=== PATIENT | female | born 1950 | race Caucasian/White ===

== ENCOUNTER → 2024-11-22 06:20 | Outpatient (REF) | payer MEDICARE, SELFPAY ==
[2024-11-25 06:08] LABS: KEPPRA (LEVETIRACETAM) 18.7 ug/mL (10.0-40.0)
== END ==
LOC: OLS.SANC 06:20
DX: Z79.899 Other long term (current) drug therapy (principal)
CPT/HCPCS: 36415; 80177

== ENCOUNTER → 2024-11-30 | Outpatient (REF) | payer MEDICARE, SELFPAY ==
[2024-11-30 09:18] LABS: Hematocrit 21.7 % (37-47); Hemoglobin 6.9 g/dL (12.0-15.0); Mean Corp Hgb Conc 31.8 g/dL (32-36); Mean Corpuscular Volume 93.9 fL (81-99); Mean Platelet Vol. 10.5 fl (6.2-12.0); Platelet Count 342 K/mm3 (150-450); RBC Distribution Width CV 18.5 % (11.6-14.6); RBC Distribution Width SD 63.3 fl (35.1-43.9); Red Blood Count 2.31 M/mm3 (4.2-5.4); White Blood Count 7.0 K/mm3 (4.4-11.0)
== END ==
LOC: OLS.SANC 05:00
DX: J15.9 Unspecified bacterial pneumonia (principal); N18.6 End stage renal disease
CPT/HCPCS: 36415; 85027

== ENCOUNTER → 2024-12-05 | Outpatient (REF) | payer MEDICARE, SELFPAY ==
--- OUTSIDE RECORDS SUMMARY | 2024-12-05 04:50 | XMS RPT_ITS | CCD ---
Author Organization [facility] Team Providers Care Relief Captain Name Role Phone Alex Betancourt Attending Unavail able Alex Betancourt Attending Unavail able Randy Marks Attending Unavailable Results Test Name Value Interpretation Reference Range Facil ity CBC-Complete Blood Cnt No Di ffon 12-01-2024 HCT Normal 37-47 [facility] Comment on above: Order Comment: 408-2 Result Comment: This specimen has been REJECTED due to Laboratory criteria: Clotted. TIANNA RUIZ has been notified of need of recollection. 12/01/24 0856 Aaliyah Huber Performed By: #### L 100.0500 #### [facility] [address] [place], [address] HGB Normal 12.0-15.0 [facility] Comment on above: Order Comment: 408-2 Result Comment: This specimen has been REJECTED due to Laboratory criteria: Clotted. TIANNA RUIZ has been notified of need of recollection. 12/01/24 0856 Aaliyah Huber Performed By: #### L 100.0500 #### [facility] [address] [place], [address] MCH Normal 27.0-32.0 [facility] Comment on above: Order Comment: 408-2 Result Comment: This specimen has been REJECTED due to Laboratory criteria: Clotted. TIANNA RUIZ has been notified of need of recollection. 12/01/24 0856 Aaliyah Huber Performed By: #### L 100.0500 #### [facility] [address] [place], [address] MCHC Normal 32-36 [facility] Comment on above: Order Comment: 408-2 Result Comment: This specimen has been REJECTED due to Laboratory criteria: Clotted. TIANNA RUIZ has been notified of need of recollection. 12/01/24 0856 Aaliyah Huber Performed By: #### L 100.0500 #### [facility] [address] [place], [address] MCV Normal 81-99 [facility] Comment on above: Order Comment: 408-2 Result Comment: This specimen has been REJECTED due to Laboratory criteria: Clotted. TIANNA RUIZ has been notified of need of recollection. 12/01/24 0856 Aaliyah Huber Performed By: #### L 100.0500 #### [facility] [address] [place], [address] PLT Normal 150-450 [facility] Comment on above: Order Comment: 408-2 Result Comment: This specimen has been REJECTED due to Laboratory criteria: Clotted. TIANNA RUIZ has been notified of need of recollection. 12/01/24 0856 Aaliyah Huber Performed By: #### L 100.0500 #### [facility] [address] [place], [address] RBC Normal 4.2-5.4 [facility] Comment on above: Order Comment: 408-2 Result Comment: This specimen has been REJECTED due to Laboratory criteria: Clotted. TIANNA RUIZ has been notified of need of recollection. 12/01/24 0856 Aaliyah Huber Performed By: #### L 100.0500 #### [facility] [address] [place], [address] RDW CV Normal 11.6-14.6 [facility] Comment on above: Order Comment: 408-2 Result Comment: This specimen has been REJECTED due to Laboratory criteria: Clotted. TIANNA RUIZ has been notified of need of recollection. 12/01/24 0856 Aaliyah Huber Performed By: #### L 100.0500 #### [facility] [address] [place], [address] RDW SD Normal 35.1-43.9 [facility] Comment on above: Order Comment: 408-2 Result Comment: This specimen has been REJECTED due to Laboratory criteria: Clotted. TIANNA RUIZ has been notified of need of recollection. 12/01/2456 Aaliyah Huber Performed By: #### L 100.0500 #### [facility] [address] [place], [address] WBC Normal 4.4-11.0 [facility] Comment on above: Order Comment: 408-2 Result Comment: This specimen has been REJECTED due to Laboratory criteria: Clotted. TIANNA RUIZ has been notified of need of recollection. 12/01/2456 Aaliyah Huber Performed By: #### L 100.0500 #### [facility] [address] [place], [address] CBC-Complete Blood Cnt No Di ffon 11-30-2024 Erythrocyte distribution width (RBC) [Ratio] 18.5 % High 11.6-14.6 [facility] Comment on above: Order Comment: 408.2 Performed By: #### L 100.0500 #### [facility] [address] [place], [address] Hematocrit (Bld) [Volume fraction] 21.7 % Low 37-47 [facility] Comment on above: Order Comment: 408.2 Performed By: #### L 100.0500 #### [facility] [address] [place], [address] Hemoglobin (Bld) [Mass/Vol] 6.9 g/dL Low 12.0-15.0 [facility] Comment on above: Order Comment: 408.2 Performed By: #### L 100.0500 #### [facility] [address] [place], [address] MCH (RBC) [Entitic mass] 29.9 pg Normal 27.0-32.0 [facility] Comment on above: Order Comment: 408.2 Performed By: #### L 100.0500 #### [facility] [address] [place], [address] MCHC (RBC) [Mass/Vol] 31.8 g/dL Low 32-36 [facility] Comment on above: Order Comment: 408.2 Performed By: #### L 100.0500 #### [facility] [address] [place], [address] MCV (RBC) [Entitic vol] 93.9 fL Normal 81-99 [facility] Comment on above: Order Comment: 408.2 Performed By: #### L 100.0500 #### [facility] [address] [place], [address] Platelet mean volume (Bld) [Entitic vol] 10.5 fL Normal 6.2-12.0 [facility] Comment on above: Order Comment: 408.2 Performed By: #### L 100.0500 #### [facility] [address] [place], [address] Platelets (Bld) [#/Vol] 342 10*3/uL Normal 150-450 [facility] Comment on above: Order Comment: 408.2 Performed By: #### L 100.0500 #### [facility] [address] [place], [address] RBC (Bld) [#/Vol] 2.31 10*6/uL Low 4.2-5.4 [facility] Comment on above: Order Comment: 408.2 Performed By: #### L 100.0500 #### [facility] [address] [place], [address] RDW SD 63.3 fl High 35.1-43.9 [facility] Comment on above: Order Comment: 408.2 Performed By: #### L 100.0500 #### [facility] [address] [place], [place], [address] WBC (Bld) [#/Vol] 7.0 10*3/uL Normal 4.4-11.0 [facility] Comment on above: Order Comment: 408.2 Performed By: #### L 100.0500 #### [facility] [address] [place], [address] KEPPRA (LEVETIRACETAM)on KEPPRA 18.7 ug/mL Normal 10.0-40.0 [facility] Comment on above: Order Comment: 408-2 Result Comment: Perf ormed at: [facility] [id number] Production Support Developer: Scott Little MD, Phone: [phone] Performed By: #### L 3310.0000 #### [facility] [address] [place], [address] Encounters Encounter Date Encounter Type Care Provider Facility Start: 12-01-2024 ambulatory Randy Florashannon FRIED Faci lity:[facility] Start: 11-30-2024 ambulatory [facility] Facility:[facility] Start: 11-22-2024 ambulatory [facility] OLS Facility:[facility] Payers Date Payer Category Payer Self-pay Summary Purpose Family History No Family History Records Found Advance Directives No Advanced Directives Records Found Additional Source Comments INFORMATION SOURCE (unrecogn ized section and content) DATE CREATED AUTHOR 12/01/2024 [facility] FOR RECORDS PERTAINING TO PATIENTS WHO ARE OR HAVE BEEN ENROLLED IN A CHEMICAL DEPENDENCY/SUBSTANCEABUSE PROGRAM, SOME INFORMATION MAY BE OMITTED. This clinical summary was aggregated from multiple sources. Caution should be exercised in using it in the provision of clinical care. This summary normalizes information from multiple sources, and as a consequence, information in this document may materially change the coding, format and clinical context of patient data. In addition, data may be omitted in some cases. CLINICAL DECISIONS SHOULD BE BASED ON THE PRIMARY CLINICAL RECORDS. [employer] provides no warranty or guarantee of the accuracy or completeness of information in this document.
[2024-12-05 09:24] LABS: Hematocrit 22.4 % (37-47); Hemoglobin 7.2 g/dL (12.0-15.0); Mean Corp Hgb Conc 32.1 g/dL (32-36); Mean Corpuscular Volume 94.5 fL (81-99); Mean Platelet Vol. 10.7 fl (6.2-12.0); POSITIVE MORPHOLOGY YES; Platelet Count 395 K/mm3 (150-450); RBC Distribution Width CV 18.8 % (11.6-14.6); RBC Distribution Width SD 65.1 fl (35.1-43.9); Red Blood Count 2.37 M/mm3 (4.2-5.4); White Blood Count 8.5 K/mm3 (4.4-11.0)
[2024-12-05 09:25] LABS: Scan Indicated on CBC? Y/N YES- FLAGS NOTED
== END ==
LOC: OLS.SANC 05:00
DX: D64.9 Anemia, unspecified (principal)
CPT/HCPCS: 85027

== ENCOUNTER → 2024-12-25 | Outpatient (REF) | payer MEDICARE, SELFPAY ==
[2024-12-25 09:12] LABS: Hematocrit 26.1 % (37-47); Hemoglobin 8.5 g/dL (12.0-15.0); Mean Corp Hgb Conc 32.6 g/dL (32-36); Mean Corpuscular Volume 96.7 fL (81-99); Mean Platelet Vol. 10.9 fl (6.2-12.0); Platelet Count 435 K/mm3 (150-450); RBC Distribution Width CV 17.0 % (11.6-14.6); RBC Distribution Width SD 58.0 fl (35.1-43.9); Red Blood Count 2.70 M/mm3 (4.2-5.4); White Blood Count 11.2 K/mm3 (4.4-11.0)
[2024-12-25 10:03] LABS: BUN 23 mg/dL (4-19); BUN/Creat Ratio 5.5 RATIO (10-20); Calcium,Total 7.7 mg/dL (7.6-11.0); Chloride 96 mmol/L (98-108); Glucose 49 mg/dL (70-99); Potassium 3.5 mmol/L (3.3-5.1)
[2024-12-25 10:07] LABS: Anion Gap 14 (5-15); Carbon Dioxide 24.2 mmol/L (21.0-32.0)
== END ==
LOC: OLS.SANC 05:30
DX: D64.9 Anemia, unspecified (principal); I10 Essential (primary) hypertension
CPT/HCPCS: 36415; 80048; 85027

== ENCOUNTER → 2025-01-05 | Outpatient (REF) | payer MEDICARE, SELFPAY ==
--- OUTSIDE RECORDS SUMMARY | 2025-01-05 04:16 | XMS RPT_ITS | CCD ---
Author Organization [facility] Inform ion Partnership [facility] Care Team Providers Care Building Appraiser Name Role Phone Bonyo, Alvarado S Primary Care Provider Unavailable Primary Care Provider Unavailabl e Bonyo, Alvarado Wes Primary Care Provider Bonyo DO, Alvarado Wes Primary Care Provider [phone] WANG, CARLOS MANUEL Q Referring Unavailable BONYO, ALVARADO WES Primary Care Unavailable WANG, CARLOS MANUEL Q Referring Unavailable BONYO, ALVARADO WES Primary Care Unavailable Bonyo DO, Alvarado S Primary Care Provider Ivania DENG, Carlos Manuel Q Unavailable Jim DENG, Raffy Unavailable Bonyo DO, Alvarado S Primary Care Provider Ivania DENG, Carlos Manuel Q Unavailable Jim DENG, Raffy Unavailable Ivania DENG, Carlos Manuel Q Unavailable Bonyo DO, Alvarado S Primary Care Provider Ivania DENG, Carlos Manuel Q Unavailable Bonyo DO, Alvarado S Primary Care Provider Judit, Roxie Primary Care Provider Ivania DENG, Carlos Manuel Q Unavailable Unavailable Primary Care Provider Unavailabl e BICAKODAK DO~[id number], SHAMEKAAKODAK VERJaonn Neri g Unavailable SAROJ DENG, RADHA Procedure Practitioner Unav DANIELA Perdue MD Consulting Unavailable JAYANT DO~[id number], JAYANT hedrick Unavailable ROXIE SPAIN MD Primary Care Unavailable DANIELA THORNTON MD Consulting Unavailable TEZ GARNETT, EDWIN Consulting Unavailable TEZ GARNETT, EDWIN Consulting Unavailable CECY DENG, NEVA Consulting Unavailable CECY DENG, NEVA Consulting Unavailable ALTHEA DENG, BLANCA Consulting Unavailable ALTHEA DENG, BLANCA Consulting Unavailable LELAND HART, HONORIO David Consulting Unavailabl e LELAND DO, HONORIO A Consulting Unavailabl e ZIDEHSARAI DO, JOSE G P Consulting Unavaila ble ZIDEHSARAI DO, JOSE G P Consulting Unavaila ble BICAKODAK DO~[id number], BICAKODAK VERA Gueroin g Unavailable ALTHEA DENG, BLANCA Procedure Practitioner UnavailKEV Bledsoe MD Consulting Unavailable POLLOCK DO~[id number], KEITH David Admitting Unavailable ROXIE SPAIN MD Primary Care Unavailable KEV EVANS MD Consulting Unavailable MASON CHAVARRIA MD Procedure Practitioner Unavalorraine VALLE DO, MAGALYS Magdaleno Consulting Unavailable TORI HART, MAGALYS Magdaleno Consulting Unavailable JESSICA PARKER DO Procedure Practitioner Unava ildevan MEZA MD, RADHA Procedure Practitioner Lucitav clotilde FARLEY MD, EDWARD Consulting Unavailable MIGUELITO DENG, EDWARD Consulting Unavailable CECY DENG, NEVA Consulting Unavailable MARCUS HUFF DO Procedure Practitioner Gian SAM MD, NEVA Consulting Unavailable EDDA DENG, GERA Emanuel Consulting Unavailabl padma BAÑUELOS MD, GERA Emanuel Consulting Unavailabl e BRENT CATALOGUE CLERK, KLEVER Consulting Unavailabl e BRENT CATALOGUE CLERK, KLEVER Consulting Unavailabl e MAYLIN LEÓN MD Consulting Unava ilable MAYLIN LEÓN MD Consulting Unava ilable LE DO~[id number], RONDA KRISHNA Admitting Unavai lable LE DO~[id number], RONDA KRISHNA Attending ROXIE Mendoza MD Primary Care Unavailable RADHA MCKEON Referring Unavailable TEODORO TOSCANO Admitting Unavailable LEVI GAMBINO Attending Unavailjoann Wang MD, Carlos Manuel Q Unavailable Jim DENG, Raffy Unavailable Roxie Spain Primary Care Provider Mukkamalla OLS, Mahaveer Attending Unavail able Mukkamalla OLS, Mahaveer Attending Unavail able Mukkamalla OLS, Mahaveer Attending Unavail able Mukkamalla OLS, Mahaveer Attending Unavail able FELIBERTO KAMINSKI Consulting Unavailable JUDIT, ROXIE Primary Care Unavailable EDSON VELAZQUEZ Admitting Unavailable KEVIN DO Attending Unavailable JUDIT, ROXIE Primary Care Unavailable KESHAWN KEVINGA Admitting Unavailable GEOFF GONSALES Attending Unavailable KEV WARNER Attending Unavailable JUDIT, ROXIE Primary Care Unavailable VICTOR MANUEL BENITO Consulting Unavailable LETICIA LEONARDO Admitting Unavailable JUDIT, ROXIE Primary Care Unavailable MO VIEIRA Attending Unavailable SHAMAR MORE Consulting Unavailable VOREULALIALOMARLY, RADHA Consulting Unavailable LONI ZAMBRANO Admitting Unavailable GERARD CARRILLO Attending Unavailable JUDIT, ROXIE Primary Care Unavailable SHAMAR MORE Consulting Unavailable RIVAS SANCHEZ Attending Unavail able JUDIT, ROXIE Primary Care Unavailable JUDIT, ROXIE Primary Care Unavailable BROWN KAUR Attending Unavailable JUDIT, ROXIE Primary Care Unavailable MARCUS RAGLAND Attending Unavailable JUDIT, ROXIE Primary Care Unavailable MAGALYS CAN Attending Unavailable MAGALYS CAN Admitting Unavailable VERONICA ABEBE Attending Unavailable JUDIT, ROXIE Primary Care Unavailable KEV WANG Admitting Unavailable JOHN MAYES Attending Unavailable PIPE SOTO Consulting Unavailable JUDIT, ROXIE Primary Care Unavailable BLANCA OH Consulting Unavailable SHMAAR MORE Consulting Unavailable RAFFY FERNANDEZ Attending Unavailable JUDIT, ROXIE Primary Care Unavailable JIM, RAFFY Attending Unavailable JUDIT, ROXIE Primary Care Unavailable JUDIT, ROXIE Attending Unavailable JUDIT, ROXIE Referring Unavailable JUDIT, ROXIE Primary Care Unavailable JIM, RAFFY Referring Unavailable JIM, RAFFY Attending Unavailable JUDIT, ROXIE Primary Care Unavailable JUDIT, ROXIE Primary Care Unavailable GABRIEL DELGADO Admitting Unavailable LETICIA COLLIER Attending Unavailable EMILY SPARROW Consulting Unavailable Medications Current Medications Medication Drug Class(es) Dates Sig (Normalized) Sig (Original) acetaminophen 500 mg oral tablet (20 sources) Start: 12-10-2024 End: 12-30-2024 take 2 tablets by mouth every eight hours acetaminophen (Tylenol) 500 MG tablet Take 2 tablets (1,000 mg) by mouth every 8 hours for 10 days. 12/20/2024 12/30/2024 Active Start: 11-09-2024 End: 11-15-2024 take 1 tablet by mouth every eight hours 1,000 mg, Oral, Every 8 hours, First dose (after last modification) on 11/12/24 at 1830, Maximum dose of acetaminophen is 4000 mg from all sources in 24 hours. Start: 10-22-2024 End: 11-09-2024 take 1 tablet by mouth every six hours as needed for headache and pain and pain Start: 08-24-2024 End: 12-20-2024 take 650 mg by mouth every six hours as needed Start: 03-02-2024 End: 03-03-2024 take 1 tablet by mouth every six hours as needed for pain and fever acetaminophen (Tylenol) tablet 650 mg Start: 02-19-2024 End: 02-20-2024 take 1 tablet by mouth every six hours as needed for pain acetaminophen (Tylenol) tablet 650 mg Start: 01-19-2024 End: 01-25-2024 take 1 tablet by mouth every six hours as needed for pain and fever acetaminophen (Tylenol) tablet 650 mg Start: 08-07-2022 End: 08-07-2022 acetaminophen (Tylenol) tabl et 1,000 mg acetaminophen 325 mg / oxyCODONE hydrochloride 5 mg oral tablet (2 sources) Opioid Agonist Start: 08-07-2022 End: 08-12-2022 take 1 tablet by mouth every six hours as needed for pain oxyCODONE-acetaminophen (Percocet) 5-325 MG tablet Indications: S/P arteriovenous (AV) graft placement Take 1 tablet by mouth every 6 hours as needed for severe pain (7-10) for up to 5 days. 20 tablet 0 08/07/2022 08/12/2022 Active amLODIPine 10 mg oral tablet (20 sources) Dihydropyridine Calcium Channel Janes Start: 12-11-2024 End: 12-21-2025 take 1 tablet by mouth once daily amLODIPine (Norvasc) 10 MG tablet Take 1 tablet (10 mg) by mouth daily. 12/21/2024 12/21/2025 Active Start: 10-26-2024 End: 11-11-2025 Start: 09-01-2024 take 5 mg by mouth once daily 5 mg, oral, Daily, First dose on 09/01/24 at 1030 Start: 03-02-2024 End: 03-03-2024 take 10 mg by mouth once daily 10 mg, Oral, Daily, Fir st dose on Diane 03/02/24 at 0900 Start: 02-19-2024 End: 02-20-2024 take 10 mg by mouth once daily 10 mg, Oral, Daily, Fir st dose on 02/19/24 at 0900 Start: 03-02-2022 End: 01-25-2024 take 1 tablet by mouth once daily amLODIPine (Norvasc) 5 MG tablet Take 1 tablet (5 mg) by mouth daily. 30 tablet 11 03/02/2022 10:36 AM EST 03/02/2022 Active ascorbic acid 60 mg / calcium pantothenate 10 mg / d-biotin 0.3 mg / folic acid 0.8 mg / niacinamide 20 mg / pyridoxine 10 mg / riboflavin 1.7 mg / thiamine 1.5 mg / vitamin b12 0.006 mg oral tablet (15 sources) Vitamin B12, Vitamin C take 1 tablet by mouth once daily B complex-vitamin C-folic acid (Nephro-Coleen) 0.8 MG tablet Take 0.8 mg by mouth daily. Active aspirin 81 mg delayed release oral tablet (16 sources) Platelet Aggregation Inhibitor, Nonsteroidal Anti-inflammatory Drug Start: 2021 End: 2022 take 1 tablet by mouth once daily aspirin 81 MG EC tablet Take 1 tablet (81 mg) by mouth daily. 30 tablet 03/02/2022 03/02/2023 Active Astragalus preparation (14 sources) take 1 mL by mouth three times daily ASTRAGALUS PO Take 1 mL by mouth 3 times daily. Active atorvastatin 40 mg oral tablet (20 sources) HMG-CoA Reductase Inhibitor Start: 2021 End: 2024 take 1 tablet by mouth once daily atorvastatin (Lipitor) 40 MG tablet Take 1 tablet (40 mg) by mouth Nightly. 30 tablet 03/02/2022 Active cholecalciferol, vitamin D3, (D3-5000 ORAL) (1 source) take 1 tablet by mouth once daily cholecalciferol, vitamin D3, (D3-5000 ORAL) Take 1 tablet by mouth once daily. Active docosahexaenoic acid 120 mg / eicosapentaenoic acid 180 mg oral capsule (20 sources) take 1 capsule by mouth once daily omega-3 (Fish Oil) 1000 MG capsule Take 1,000 mg by mouth daily. Active epoetin miller 58900 unt/ml injectable solution (4 sources) Erythropoiesis-sti mulating Agent Start: 2024 take 11105 [IU] intravenously once daily 20,000 Units, intravenous, User specified (Once per day on Wednesday), First dose (after last modification) on Wed09/07/24 at 2100, Indications: ESRD on Dialysis Start: 09-06-2024 End: 09-06-2024 10,000 Units, intravenous, O nce, On Wed09/06/24 at 1330, For 1 dose, Please give today.. non-dialysis day..hgb 7.6, Indications: ESRD on Dialysis, anemia Start: 09-05-2024 End: 09-06-2024 take 07541 [IU] intravenously once daily 10,000 Units, intravenous, User specified (Once per day on Wednesday), First dose (after last modification) on Wed09/05/24 at 2100, Indications: ESRD on Dialysis Start: 09-02-2024 End: 09-04-2024 inject 19966 [IU] by subcutaneous injection once daily 10,000 Units, subcutaneous, User specified (Once per day on Wednesday), First dose on Wed09/02/24 at 2100, Indications: ESRD on Dialysis hydrALAZINE hydrochloride 10 mg oral tablet (12 sources) Arteriolar Vasodilator Start: 12-20-2024 End: 12-20-2025 take 1 tablet by mouth three times daily hydrALAZINE (Apresoline) 10 MG tablet Take 1 tablet (10 mg) by mouth 3 times daily. 12/20/2024 12/20/2025 Active Start: 12-09-2024 End: 12-15-2024 take 10 mg intravenously every four hours as needed for hypertension Start: 10-26-2024 End: 11-09-2024 take 10 mg intravenously every four hours as needed for hypertension Start: 03-02-2024 End: 03-03-2024 take 10 mg intravenously every four hours as needed 10 mg, IntraVENous, Every 4 hours PRN, SBP>170, Starting on Diane 03/02/24 at 0758 Start: 01-24-2024 End: 01-25-2024 take 10 mg intravenously every six hours as needed for hypertension 10 mg, IntraVENous, Every 6 hours PRN, high blood pressure, SBP >160, Starting on 01/24/24 at 1829 2.5 ml iron sucrose 20 mg/ml injection (19 sources) Parenteral Iron Replacement Start: 04-14-2022 End: 04-06-2023 iron sucrose (Venofer) 20 MG/ML injection Infuse 50 mg into a venous catheter per week. 0 04/14/2022 04/06/2023 Active lidocaine 0.04 mg/mg medicated patch (10 sources) Antiarrhythmic, Amide Local Anesthetic Start: 12-21-2024 apply 1 dose transdermal route once daily Lidocaine 4 % patch Place 1 patch on the skin daily. 12/21/2024 Active Start: 12-10-2024 End: 12-20-2024 Start: 10-23-2024 End: 10-23-2024 Start: 01-19-2024 End: 01-19-2024 As needed, Starting on Wed at 1023, Intraprocedure melatonin 5 mg oral tablet (20 sources) Start: 10-31-2024 End: 12-20-2024 take 1 tablet by mouth once daily melatonin 5 MG tablet Take 1 tablet (5 mg) by mouth Nightly. 11/11/2024 Active Start: 10-29-2024 End: 10-31-2024 Start: 03-02-2024 End: 03-03-2024 take 5 mg by mouth once daily as needed for sleep 5 mg, Oral, Nightly PRN, sleep, Starting on Diane 03/02/24 at 1108 NON FORMULARY (20 sources) take 1 mL by mouth t hree times daily NON FORMULARY Take 1 mL by mouth 3 times daily. Kidney tonic Active take 1 capsule by mouth once haider ly NON FORMULARY Take 1 capsule by mouth daily. [place] Active OMEGA-3 FATTY ACIDS ORAL (1 source) take 1000 mg by mouth once daily OMEGA-3 FATTY ACIDS ORAL Take 1,000 mg by mouth once daily. Active ondansetron 4 mg oral tablet (4 sources) Serotonin-3 Receptor Antagonist Start: End: take 1 tablet by mouth every six hours as needed for nausea and vomiting ondansetron (Zofran) 4 MG tablet Take 1 tablet (4 mg) by mouth every 6 hours as needed for nausea or vomiting for up to 5 days. 20 tablet 0 08/07/2022 08/12/2022 Active Start: 08-07-2022 End: 08-08-2022 ondansetron (Zofran) injecti on 4 mg QUEtiapine 25 mg oral tablet (8 sources) Atypical Antipsychotic Start: 12-14-2024 End: 01-19-2025 take 0.5 tablet by mouth twice daily as needed QUEtiapine (SEROquel) 25 MG tablet Take 0.5 tablets (12.5 mg) by mouth 2 times daily as needed (first line for agitation, [place] PRN Seroquel for ONLY if danger to self/others/treatment). 12/20/2024 01/19/2025 Active Start: 10-29-2024 End: 10-29-2024 sodium zirconium cyclosilicate 39812 mg powder for oral suspension (3 sources) Start: 09-01-2024 take 1 dose by mouth once daily 10 g, oral, 3 times weekly (Once per day on Wednesday), First dose on Wed09/01/24 at 1030 Start: 08-31-2024 End: 09-01-2024 10 g, oral, Every other day, First dose on Wed08/31/24 at 0900 sodium zirconium cyclosilicate (Lokelma) 10 gram packet Take 10 g by mouth 3 (three) times a week. Wed/wed/wed Active vitamin B complex-vitamin C-folic acid (Nephrocaps) capsule 1 capsule (1 source) Start: 09-01-2024 take 1 capsule by mouth once daily 1 capsule, oral, Daily, First dose on Wed09/01/24 at 1530 Completed/Discontinued Medications Medication Drug Class(es) Dates Sig (Normalized) Sig (Original) albuterol 0.83 mg/ml inhalation solution (2 sources) beta2-Adrenergic Agonist Start: 02-19-2024 End: 02-20-2024 albuterol 0.833 mg/ml / ipratropium bromide 0.167 mg/ml inhalation solution (4 sources) Anticholinergic, beta2-Adrenergic Agonist Start: 02-20-2024 End: 02-20-2024 3 mL, Nebulization, Every 6 hours PRN, shortness of breath, Starting on 02/20/24 at 1215 Start: 02-19-2024 End: 02-20-2024 3 mL, Nebulization, 4 times daily, First dose on 02/19/24 at 2315 ALPRAZolam 0.25 mg disintegrating oral tablet (4 sources) Benzodiazepine Start: 08-07-2022 End: 08-07-2022 ALPRAZolam (Xanax) disintegrating tablet 0.25 mg Start: 07-17-2022 End: 07-17-2022 ALPRAZolam (Xanax) disintegr ating tablet 0.25 mg amLODIPine 10 mg / atorvastatin 10 mg oral tablet (3 sources) Dihydropyridine Calcium Channel Janes, HMG-CoA Reductase Inhibitor take 0.5 tablet by mouth once daily amLODIPine-Atorvastatin 10-10 mg per tablet Take 0.5 tablets by mouth once daily. 0 Active Comment on above: Take 0.5 tablets by mouth once daily. ascorbic acid 100 mg / biotin 0.15 mg / calcium pantothenate 5 mg / folic acid 1 mg / niacin 20 mg / pyridoxine 10 mg / riboflavin 1.7 mg / thiamine mononitrate 1.5 mg / vitamin b12 0.006 mg oral capsule (2 sources) Nicotinic Acid, Vitamin B12, Vitamin C Start : 12-09 End: 12-20 benzonatate 100 mg oral capsule (2 sources) Non-narcotic Antitussive Start : 02-18 End: 02-19 take 100 mg by mouth three times daily as needed for cough 100 mg, Oral, 3 times daily PRN, cough, Starting on 02/19/24 at 0803, Do not crush or chew. calcium acetate 667 mg oral capsule (20 sources) Start : 02-18 End: 09-01 take 667 mg by mouth three times daily at mealtime 667 mg, Oral, 3 times daily with meals, First dose on Diane 03/02/24 at 0800 Start: 07-01-2022 End: 11-15-2024 calcium acetate (Phoslo) 667 MG tablet Take 1 tablet by mouth in the morning and 1 tablet at noon and 1 tablet in the evening. Take with meals. 07/01/2022 11/15/2024 Discontinued (Stop taking at discharge) Start: 07-01-2022 calcium chloride 0.0014 meq/ml / potassium chloride 0.004 meq/ml / sodium chloride 0.103 meq/ml / sodium lactate 0.028 meq/ml injectable solution (2 sources) Start: 08-07-2022 End: 08-08-2022 lactated ringers infusion 10 ml calcium gluconate 100 mg/ml injection (2 sources) Start: 03-02-2024 End: 03-02-2024 1,000 mg, IntraVENous, Once, On Diane 03/02/24 at 0635, For 1 dose, Administer over 2 to 5 minutes to lower the risk of ventricular fibrillation. cefdinir 300 mg oral capsule (2 sources) Cephalosporin Antibacterial Start: 10-12-2024 End: 11-11-2024 cefepime (Maxipime) 1,000 mg in sodium chloride 0.9 % 50 mL IVPB (2 sources) Start: 10-22-2024 End: 10-23-2024 take 1000 mg intravenously every twelve hours cefTRIAXone (Rocephin) 1 g in sodium chloride 0.9 % 50 mL IVPB Mini-Bag Plus (2 sources) Start: 02-19-2024 End: 02-20-2024 1 g, IntraVENous, at 100 mL/hr, Administer over 30 Minutes, Every 24 hours, First dose on [facility] 02/19/24 at 0820, For 5 days, Mini-Bag Plus bag, Suspected Indication (Select all that apply): Pneumonia Chlorhexidine (2 sources) Start: 10-23-2024 End: 11-11-2024 cholecalciferol 0.05 mg oral tablet (20 sources) Vitamin D Start: 12-09-2024 End: 12-20-2024 Start: 08-31-2024 take 125 ug by mouth once daily 125 mcg, oral, Daily, First dose on Diane 08/31/24 at 0900 Start: 02-19-2024 End: 02-20-2024 take 5000 [IU] by mouth once daily 5,000 Units, Oral, Daily, First dose on 02/19/24 at 0900 take 1 capsule by [address] ut once daily cholecalciferol (Vitamin D-3) 125 MCG (5000 UT) capsule Take 5,000 Units by mouth daily. Active cholecalciferol 9.52 unt/ml / glucose 357 mg/ml oral gel (6 sources) Vitamin D Start: 12-12-2024 End: 12-20-2024 Start: 10-23-2024 End: 11-04-2024 Start: 03-02-2024 End: 03-03-2024 15 g, Oral, As needed, low b lood sugar, Starting on Diane 03/02/24 at 0621, If blood glucose less than 50 mg/dL and patient ALERT and NOT NPO, give 2 tubes glucose gel. If blood glucose less than 70 mg/dL and patient ALERT and NOT NPO, give 1 tube glucose gel. Repeat blood glucose in 15 minutes. If blood glucose is less than 70 mg/dL, repeat treatment and recheck blood glucose in 15 minutes x2 and notify provider. collagenase 0.25 unt/mg topical ointment (6 sources) Collagen-specific Enzyme Start: 11-13-2024 End: 11-14-2024 apply 1 dose topically once daily as needed Topical, Daily, First dose (after last modification) on 11/13/24 at 0900, Nursing staff to perform dressing change: Sacrum extending to left buttock: Pressure Injury Unstageable (POA) -cleanse with NS, apply santyl followed by xeroform, cover with dry clean dressing daily and PRN. Start: 10-23-2024 End: 11-11-2024 cyclobenzaprine hydrochloride 5 mg oral tablet (2 sources) Muscle Relaxant Start: 10-12-2024 End: 11-11-2024 diclofenac sodium 0.01 mg/mg topical gel (2 sources) Nonsteroidal Anti-inflammatory Drug Start: 01-21-2024 End: 01-25-2024 2 g, Topical, 2 times daily PRN, Joint pain, Starting on Wed01/21/24 at 0845, Apply to area w joint pain. 1 ml diphenhydrAMINE hydrochloride 50 mg/ml cartridge (4 sources) Histamine-1 Receptor Antagonist Start: 11-14-2024 End: 11-15-2024 take 25 mg intravenously every six hours as needed 25 mg, IntraVENous, Every 6 hours PRN, itching, Starting on Wed11/14/24 at 1304 Start: 08-07-2022 End: 08-08-2022 diphenhydrAMINE (BENADryl) i njection 12.5 mg docusate sodium 50 mg / sennosides, care home 8.6 mg oral tablet (4 sources) Start: 01-22-2024 End: 01-25-2024 take 2 tablets by mouth every twenty-four hours as needed for constipation 2 tablet, Oral, Daily PRN, constipation, Starting on Wed01/23/24 at 0745 Drug or medicament (substance) (4 sources) Start: 12-13-2024 End: 12-20-2024 Start: 12-13-2024 End: 12-20-2024 famotidine 20 mg oral tablet (2 sources) Histamine-2 Receptor Antagonist Start: 08-07-2022 End: 08-07-2022 famotidine (Pepcid) tablet 20 mg 2 ml fentaNYL 0.05 mg/ml injection (2 sources) Opioid Agonist Start: 01-24-2024 End: 01-24-2024 IntraVENous, As needed, Starting on Wed01/24/24 at 1637, Intraprocedure ferrous sulfate 325 mg oral tablet (1 source) Start: 08-31-2024 End: 09-01-2024 1 tablet (65 mg of elemental iron), oral, Every 48 hours, First dose on Diane 08/31/24 at 0930 2 ml furosemide 10 mg/ml injection (2 sources) Loop Diuretic Start: 02-19-2024 End: 02-19-2024 80 mg, IntraVENous, Once, On 02/19/24 at 0445, For 1 dose gelatin absorbable (Gelfoam) 100 sponge - Pyxis ADS Override Pull (2 sources) Start: 01-25-2024 End: 01-25-2024 Starting on Wed01/25/24 at 1602, For 1 dose, Matilde Julien: cabinet override glucagon (rdna) 1 mg injection (4 sources) Antihypoglycemic Agent Start: 12-12-2024 End: 12-20-2024 Start: 03-02-2024 End: 03-03-2024 1 mg, IntraMUSCular, PRN, lo w blood sugar, Blood glucose less than 70 mg/dL and patient NOT ALERT or NPO and does not have IV access., Starting on Diane 03/02/24 at 0621, After administration, attempt intravenous access and start D5W at 100 mL/hr. Repeat blood glucose in 15 minutes x2 and notify provider. 50 ml glucose 50 mg/ml injec tion (6 sources) Start: 12-12-2024 End: 12-20-2024 Start: 03-02-2024 End: 03-03-2024 12.5 g, IntraVENous, PRN, lo w blood sugar, Starting on Diane 03/02/24 at 0621, Blood glucose less than 70 mg/dL and patient NOT ALERT or NPO., If patient does not respond within 5 minutes, repeat dose x1. Start D5W at 100 mL/hour until ordering provider can be reached. Repeat blood glucose in 15 minutes. If blood glucose is less than 70 mg/dL, repeat treatment and recheck blood glucose in 15 minutes x2. If using Glucostabilizer, dose as instructed per system. Start: 03-02-2024 End: 03-03-2024 100 mL/hr, IntraVENous, PRN, Low Blood Sugar, Starting on Diane 03/02/24 at 0621, Blood glucose less than 70 mg/dL and patient NOT ALERT or NPO and does not have IV access., After administration, attempt intravenous access and start D5W at 100 mL/hr. Repeat blood glucose in 15 minutes x2 and notify provider. 1 ml haloperidol 5 mg/ml pre filled syringe (2 sources) Typical Antipsychotic Start: 12-13-2024 End: 12-13-2024 Start: 12-13-2024 End: 12-13-2024 0.5 ml heparin sodium, porcine 76101 unt/ml prefilled syringe (20 sources) Unfractionated Heparin, Anti-coagulant Start: 12-13-2024 End: 12-20-2024 Start: 12-12-2024 End: 12-20-2024 Start: 10-22-2024 End: 11-11-2024 Start: 10-22-2024 End: 11-11-2024 Start: 03-02-2024 End: 03-03-2024 inject 1 dose by subcutaneous injection twice daily 5,000 Units, SubCUTAneous, Every 12 hours scheduled (2 times per day), First dose on Diane 03/02/24 at 0900 Start: 02-19-2024 End: 02-20-2024 inject 1 dose by subcutaneous injection twice daily 5,000 Units, SubCUTAneous, Every 12 hours scheduled (2 times per day), First dose on [facility] 02/19/24 at 0900 1 ml HYDROmorphone hydrochloride 1 mg/ml cartridge (20 sources) Opioid Agonist Start: 12-13-2024 End: 12-14-2024 take 0.25 mg intravenously every four hours as needed for pain and pain Start: 11-07-2024 End: 11-13-2024 take 0.25 mg intravenously every four hours as needed for pain 0.25 mg, IntraVENous, Every 4 hours PRN, severe pain (7-10), give for severe pain if the oral pain medication is not sufficient. do not give within an hour of the oral oxycodone, Starting on Wed11/12/24 at 1742, If oral and injectable narcotics ordered, use oral first and only use injectable if oral is ineffective or cannot take oral. Do Not give oral and injectable within 1 hour of each other unless specifically ordered. Start: 11-05-2024 End: 11-05-2024 Start: 11-05-2024 End: 11-05-2024 Start: 11-05-2024 End: 11-05-2024 Start: 11-02-2024 End: 11-02-2024 Start: 09-05-2024 take 1 tablet by ajit every six hours as needed 1 mg, oral, Every 6 hours PRN, pain severe (7-10), first line, Starting on 09/05/24 at 0126, If ordered PRN for pain, nurse is permitted to administer this medication for higher pain scores based on patient preference? Yes Start: 08-31-2024 End: 09-05-2024 0.2 mg, intravenous, Every 3 hours PRN, pain severe (7-10), first line, Starting on Diane 08/31/24 at 0133 Start: 08-07-2022 End: 08-08-2022 HYDROmorphone (Dilaudid) injection 0.25 mg Start: 08-07-2022 End: 08-08-2022 HYDROmorphone (Dilaudid) injection 0.5 mg iopamidol (Isovue-300) 61 % injection 100 mL (2 sources) Start: 01-24-2024 End: 01-24-2024 100 mL, Intra-arTERial, IMG once PRN, contrast, Starting on 01/24/24 at 1719, For 1 dose iopamidol (Isovue-300) 61 % injection 65 mL (2 sources) Start: 01-19-2024 End: 01-19-2024 65 mL, Intra-arTERial, IMG once PRN, contrast, Starting on Wed01/19/24 at 2317, For 1 dose iopamidol (Isovue-370) 76 % injection 75 mL (2 sources) Start: 01-19-2024 End: 01-19-2024 take 75 mL intravenously once as needed 75 mL, IntraVENous, IMG once PRN, contrast, Starting on Wed01/19/24 at 1904, For 1 dose labetalol hydrochloride 5 mg/ml injectable solution (4 sources) beta-Adrenerg ic Janes Start: 12-09-2024 End: 12-20-2024 take 10 mg intravenously every six hours as needed for hypertension Start: 10-24-2024 End: 11-09-2024 take 10 mg intravenously every four hour s as needed for hypertension labetalol (Normodyne,Trandat e) injection 5 mg (2 sources) Start: 08-07-2022 End: 08-08-2022 labetalol (Normodyne,Trandat e) injection 5 mg levETIRAcetam 500 mg oral ta blet (20 sources) Start: 12-18-2024 End: 12-20-2024 Start: 10-22-2024 End: 11-01-2024 Start: 01-20-2024 End: 01-21-2024 500 mg, IntraVENous, Adminis ter over 15 Minutes, Daily, First dose on Diane 01/20/24 at 0900 Start: 03-02-2022 End: 12-20-2024 linezolid 600 mg oral tablet (2 sources) Oxazolidinone Antibacterial Start: 10-12-2024 End: 11-11-2024 take 600 mg by mouth every twelve hours 1 ml LORazepam 2 mg/ml injection (4 sources) Benzodiazepine Start: 12-09-2024 End: 12-09-2024 Start: 08-07-2022 End: 08-08-2022 LORazepam (Ativan) injection 0.5 mg magnesium hydroxide 240 mg/m l oral suspension (13 sources) End: 12-20-2024 take 30 mL by mouth every twenty-four hours as needed for constipation take 30 mL by mouth every twenty-four hours as needed for constipation magnesium hydroxide (Milk of Magnesia) 2400 MG/10ML suspension suspension Take 30 mL by mouth Daily as needed for constipation. Active meclizine hydrochloride 25 m g oral tablet (8 sources) Antiemetic Start: 06-29-2024 End: 11-11-2024 5 ml metoprolol tartrate 1 m g/ml injection (2 sources) beta-Adrenergic Janes Start: 10-26-2024 End: 10-26-2024 Start: 10-26-2024 End: 10-26-2024 1 ml midazolam 5 mg/ml cartridge (2 sources) Benzodiazepine Start: 01-24-2024 End: 01-24-2024 IntraVENous, As needed, Starting on 01/24/24 at 1637, Intraprocedure 1 ml morphine sulfate 4 mg/ml cartridge (2 sources) Opioid Agonist Start: 11-05-2024 End: 11-07-2024 take 1 mg intravenously every four hours as needed for pain mupirocin 0.02 mg/mg topical ointment (2 sources) RNA Synthetase Inhibitor Antibacterial Start: 10-23-2024 End: 10-27-2024 1 ml naloxone hydrochloride 0.4 mg/ml injection (6 sources) Opioid Antagonist Start: 12-10-2024 End: 12-20-2024 Start: 10-30-2024 End: 11-15-2024 0.4 mg, IntraVENous, Every 5 min PRN, opioid reversal, respiratory depression, Starting on 11/12/24 at 1748, +++ For RR 250 ml nitroglycerin 0.2 mg/ml injection (4 sources) Nitrate Vasodilator Start: 02-19-2024 End: 02-19-2024 5-200 mcg/min (1.5-60 mL/hr), IntraVENous, Continuous, Starting on 02/19/24 at 0425, If Titrate Infusion? is No: Disregard instructions below. If Titrate infusion? is Yes: If rate LESS than 20 mcg/min: Titrate by 5 mcg/min no faster than every 5 minutes to goal. If rate GREATER than or equal to 20 mcg/min: Titrate by 10 mcg/min no faster than every 5 minutes to goal., Titrate Infusion? Yes, Initial Infusion Dose: Other, Other (mcg/min): 50mcg/min, Goal of Therapy is: SBP less than 160 mmHg, Contact Provider if: SBP less than 90 mmHg Start: 02-19-2024 End: 02-19-2024 Starting on 02/19/24 at 0408, For 1 dose, Karis Pulido: juany override ondansetron ODT (Zofran-ODT) disintegrating tablet 4 mg (8 sources) Start: 11-12-2024 End: 11-15-2024 take 1 tablet by mouth every eight hours as needed for nausea and vomiting ondansetron ODT (Zofran-ODT) disintegrating tablet 4 mg Start: 03-02-2024 End: 03-03-2024 take 1 tablet by mouth every eight hours as needed for nausea and vomiting ondansetron ODT (Zofran-ODT) disintegrating tablet 4 mg Start: 02-19-2024 End: 02-20-2024 take 1 tablet by mouth every eight hours as needed for nausea and vomiting ondansetron ODT (Zofran-ODT) disintegrating tablet 4 mg Start: 01-19-2024 End: 01-25-2024 take 1 tablet by mouth every eight hours as needed for nausea and vomiting ondansetron ODT (Zofran-ODT) disintegrating tablet 4 mg oxyCODONE hydrochloride 5 mg oral tablet (20 sources) Opioid Agonist Start: 12-10-2024 End: 12-25-2024 take 2.5 mg by mouth every four hours as needed for pain Start: 12-09-2024 End: 12-09-2024 Start: 12-09-2024 End: 12-09-2024 Start: 12-08-2024 End: 12-08-2024 Start: 10-12-2024 End: 11-16-2024 take 1 tablet by mouth every six hours as needed for pain oxyCODONE (Roxicodone) 5 MG immediate release tablet Indications: Buttock wound, left, initial encounter Take 1 tablet (5 mg) by mouth every 6 hours as needed for severe pain (7-10) or moderate pain (4-6) for up to 5 days. 15 tablet 11/11/2024 11/16/2024 Active Start: 08-31-2024 End: 08-31-2024 take 5 mg by mouth once as needed for pain 5 mg, oral, Once, On Diane 08/31/24 at 0200, For 1 dose, If ordered PRN for pain, nurse is permitted to administer this medication for higher pain scores based on patient preference? Yes pantoprazole 40 mg delayed release oral tablet (2 sources) Proton Pump Inhibitor Start: 01-21-2024 End: 01-25-2024 take 40 mg by mouth twice daily before mealtime 40 mg, Oral, 2 times daily before meals, First dose (after last modification) on Wed01/21/24 at 0700, Do not crush, chew, or split. piperacillin 2000 mg / tazobactam 250 mg injection (1 source) Penicillin-clas s Antibacterial, beta Lactamase Inhibitor Start: 08-31-2024 End: 09-01-2024 take 2.25 g intravenously every twelve hours 2.25 g, intravenous, Administer over 0.5 Hours, Every 12 hours, First dose (after last modification) on Diane 08/31/24 at 0200, premix bag, Dosing of this medication varies based on severity of illness. Does this patient have sepsis or concern for sepsis (probable or documented infection plus systemic manifestations of infection)? No, Suspected Indication (Select all that apply): Cellulitis, Skin and Soft Tissue, Indications: Cellulitis, Skin and Soft Tissue polyethylene glycol 3350 72800 mg powder for oral solution (18 sources) Osmotic Laxative Start: 12-09-2024 End: 12-20-2024 take 17 g by mouth every twenty-four hours as needed for constipation Start: 10-22-2024 End: 11-15-2024 take 17 g by mouth every twenty-four hours as needed for constipation Start: 03-02-2024 End: 03-03-2024 take 17 g by mouth every twenty-four hours as needed for constipation 17 g, Oral, Daily PRN, constipation, Starting on Diane 03/02/24 at 0753, 1st line for treatment of constipation - give scheduled if no bowel movement in past 24 hours. Start: 02-19-2024 End: 02-20-2024 take 17 g by mouth every twenty-four hours as needed for constipation 17 g, Oral, Daily PRN, constipation, Starting on 02/19/24 at 0831, 1st line for treatment of constipation - give scheduled if no bowel movement in past 24 hours. Start: 01-25-2024 End: 01-28-2024 take 17 g by mouth every twenty-four hours as needed polyethylene glycol, PEG, 3350 (Miralax) 17 g packet Take 17 g by mouth Daily as needed (constipation) for up to 3 days. 3 packet 01/25/2024 01/28/2024 Active Start: 01-22-2024 End: 01-25-2024 take 1 dose by mouth every twenty-four hours for constipation 17 g, Oral, Daily, First dose (after last modification) on 01/22/24 at 0900, 1st line for treatment of constipation - give scheduled if no bowel movement in past 24 hours. polyethylene glycol 3350 [id number] mg / potassium chloride 2970 mg / sodium bicarbonate 6740 mg / sodium chloride 5860 mg / sodium sulfate 91671 mg powder for oral solution (4 sources) Osmotic Laxative Start: 01-23-2024 End: 01-24-2024 4,000 mL, Oral, Once, On 01/24/24 at 1600, For 1 dose, Prep may be mixed with any clear liquid, please avoid red colored liquids. Begin drinking 1 8oz glass every 15-20 minutes as tolerated until completed or stool is yellow liquid. Please reach out to the GI team if unable to drink prep or stool remains brown. microencapsulated potassium chloride 10 meq extended release oral tablet (6 sources) Start: 12-08-2024 End: 12-10-2024 pregabalin 25 mg oral capsule (2 sources) Start: 12-11-2024 End: 12-20-2024 sertraline 50 mg oral tablet (2 sources) Serotonin Reuptake Inhibitor Start: 12-11-2024 End: 12-13-2024 sevelamer carbonate 800 mg oral tablet (20 sources) Phosphate Binder Start: 12-09-2024 End: 12-15-2024 Start: 11-13-2024 End: 11-15-2024 take 800 mg by mouth three times daily at mealtime 800 mg, Oral, 3 times daily with meals, First dose (after last modification) on 11/13/24 at 0800, Do not crush, chew, or split. Start: 10-22-2024 End: 11-11-2024 take 1 tablet by ajit th three times daily at mealtime sevelamer (Renagel) 800 MG tablet Take 800 mg by mouth 3 times daily (with meals). Swallow tablet whole; do not crush, break, or chew. Active 50 ml sodium chloride 9 mg/m l injection (20 sources) Start: 12-14-2024 End: 12-20-2024 Start: 12-09-2024 End: 12-20-2024 Start: 12-09-2024 End: 12-20-2024 take 5-40 mL intravenously every twelve hours Start: 10-23-2024 End: 11-11-2024 take 5-40 mL intraluminal route every eight hours Start: 10-22-2024 End: 11-11-2024 Start: 10-22-2024 End: 11-11-2024 Start: 02-19-2024 End: 02-20-2024 10 mL, IntraVENous, Every 12 hours scheduled (2 times per day), First dose on 02/19/24 at 2315 Start: 02-19-2024 End: 02-20-2024 Start: 02-19-2024 End: 02-20-2024 Start: 01-24-2024 End: 01-25-2024 250 mL/hr, IntraVENous, Administer over 10 Minutes, As needed, For use in priming line prior to transfusion (prime via gravity) and flush line post transfusion, Starting on Wed01/24/24 at 0115, For 1 dose, For use in priming line prior to transfusion (prime via gravity) and flush line post transfusion ONLY. Discontinue once line has been cleared of remaining blood product. Start: 01-23-2024 End: 01-25-2024 10 mL, IntraVENous, Every 12 hours scheduled (2 times per day), First dose on 01/23/24 at 1000, Preprocedure Start: 01-23-2024 End: 01-25-2024 take 100 mL intravenously every hour as needed, then take 20 mL intravenously every hour as needed 5-250 mL/hr, IntraVENous, PRN, if patient receiving piggyback infusions and maintenance fluids are not ordered OR KVO fluids to protect IV site / prevent frequent line interruptions/ long duration, Starting on [place] 01/23/24 at 0950, For piggyback infusion, administer at same rate as piggyback for a total of 25 mL. Enter 25 mL into dose field and piggyback rate into rate field of order. If piggyback is infusing at a rate less than 100 mL/hr, enter 25 mL into dose field and 100 mL/hr into rate field of order. For KVO fluids, enter rate of 20 mL/hr or less into rate field of order. Start: 01-23-2024 End: 01-25-2024 take 10 mL intravenously once as needed 10 mL, IntraVENous, PRN, line care, Starting on [place] 01/23/24 at 0950, After every IV line use Start: 08-07-2022 End: 08-08-2022 sodium chloride 0.9 % bolus 500 mL Start: 08-07-2022 End: 08-08-2022 sodium chloride 0.9 % infusi on Start: 08-07-2022 End: 08-08-2022 sodium chloride 0.9% (NS) fl ush 10 mL Start: 07-17-2022 End: 07-17-2022 sodium chloride 0.9 % infusi on Start: 07-17-2022 End: 07-17-2022 sodium chloride 0.9% (NS) fl ush 10 mL sodium zirconium cyclosilicate (Lokelma) packet 15 g (2 sources) Start: 06-29-2024 End: 06-29-2024 15 g, Oral, Once, On [facility] 06/29/24 at 0910, For 1 dose, Empty entire contents of packet(s) into 45 mL water. Stir well and administer immediately. If powder remains, rinse glass with water and administer. Administer other meds at least 2 hours before or after dose to prevent decreases in their absorption. sulfamethoxazole 800 mg / trimethoprim 160 mg oral tablet (12 sources) Dihydrofolate Reductase Inhibitor Antibacterial, Sulfonamide Antimicrobial Start: 11-11-2024 End: 12-06-2024 take 1 tablet by mouth once daily sulfamethoxazole- trimethoprim (Bactrim DS) 800-160 MG tablet Take 1 tablet by mouth daily for 4 days. 11/11/2024 12/06/2024 Start: 10-30-2024 End: 12-20-2024 technetium Tc-99m labeled re d blood cells (UltraTAG) radio-isotope injection 20 millicurie (2 sources) Start: 01-24-2024 End: 01-24-2024 20 millicurie, IntraVENous, Once, On 01/24/24 at 1345, For 1 dose thiamine 100 mg oral tablet (20 sources) Start: 12-20-2024 End: 12-20-2024 Start: 12-09-2024 End: 12-14-2024 Start: 08-31-2024 take 100 mg by mouth once meg y 100 mg, oral, Daily, First dose on Diane 08/31/24 at 0900 take 1 tablet by mouth once meg y Thiamine HCl (vitamin B-1) 250 MG tablet Take 250 mg by mouth daily. Active traMADol hydrochloride 50 mg oral tablet (2 sources) Opioid Agonist Start: 10-30-2024 End: 10-31-2024 100 ml vancomycin 5 mg/ml injection (1 source) Glycopeptide Antibacterial Start: 08-31-2024 End: 08-31-2024 500 mg, intravenous, at 200 mL/hr, Administer over 30 Minutes, Once, On Diane 08/31/24 at 0215, For 1 dose, premix bag, Dosing of this medication varies based on severity of illness. Does this patient have sepsis or concern for sepsis (probable or documented infection plus systemic manifestations of infection)? No, Suspected Indication (Select all that apply): Cellulitis, Skin and Soft Tissue, Type of Therapy: Empiric, Indications: Cellulitis, Skin and Soft Tissue VITAMIN E PO (20 sources) End: 01-25-2024 VITAMIN E PO Take by mouth daily. 01/25/2024 Discontinued (Stop taking at discharge) VITAMIN E PO Robert e by mouth daily. Active VITAMIN E PO Robert e by mouth daily. 0 Active Xeroform Petrolat Gauze 5x9 external pad 1 each (2 sources) Start: 11-13-2024 End: 11-14-2024 1 each, Topical, Daily, Firs t dose on 11/13/24 at 1600, Apply to left buttock. (20 sources) Start: 12-16-2024 End: 12-16-2024 Start: 12-14-2024 End: 12-20-2024 Start: 12-14-2024 End: 12-20-2024 take 0.25 mg intravenously every four hours as needed for pain [Order 1 Start] Name: HYDROmorphone (Dilaudid) injection 0.25 mg Signed Summary: 0.25 mg, IntraVENous, Every 4 hours PRN, moderate pain (4-6), Starting on Diane 12/14/24 at 1311, If oral and IV narcotics ordered, use oral first and only use IV if oral is ineffective or cannot take oral. Do Not give oral and IV within 1 hour of each other unless specifically ordered. [Order 1 End] [Order 2 Start] Name: HYDROmorphone (Dilaudid) injection 0.5 mg Signed Summary: 0.5 mg, IntraVENous, Every 4 hours PRN, severe pain (7-10), Starting on Diane 12/14/24 at 1311, If oral and IV narcotics ordered, use oral first and only use IV if oral is ineffective or cannot take oral. Do Not give oral and IV within 1 hour of each other unless specifically ordered. [Order 2 End] Start: 12-14-2024 End: 12-18-2024 take 1000 mg intravenously every twelve hours Start: 12-13-2024 End: 12-20-2024 Start: 12-13-2024 End: 12-20-2024 Start: 12-13-2024 End: 12-13-2024 Start: 12-12-2024 End: 12-12-2024 Start: 12-09-2024 End: 12-14-2024 take 1000 mg intravenously every twelve hours Start: 12-09-2024 End: 12-20-2024 take 4 mg by mouth every eight hours as needed for nausea and vomiting [Order 1 Start] Name: ondansetron ODT (Zofran-ODT) disintegrating tablet 4 mg Signed Summary: 4 mg, Oral, Every 8 hours PRN, nausea, vomiting, Starting on 12/09/24 at 0615, 1st Line. If inadequate response within 60 minutes, proceed to next-line agent or contact provider if no further options ordered. Patient should allow tablet to dissolve on tongue. Do not remove from blister pack until just before administering. [Order 1 End] [Order 2 Start] Name: ondansetron (Zofran) injection 4 mg Signed Summary: 4 mg, IntraVENous, Every 6 hours PRN, nausea, vomiting, Starting on 12/09/24 at 0615, 1st Line. Give IV if patient is unable to take orally. If inadequate response within 60 minutes, proceed to next-line agent or contact provider if no further options ordered. [Order 2 End] Start: 10-25-2024 End: 10-25-2024 Start: 10-23-2024 End: 10-23-2024 Start: 10-23-2024 End: 10-30-2024 take 1000 mg intravenously every twelve hours Start: 10-22-2024 End: 11-11-2024 take 4 mg by mouth every eight hours as needed for nausea and vomiting [Order 1 Start] Name: ondansetron ODT (Zofran-ODT) disintegrating tablet 4 mg Signed Summary: 4 mg, Oral, Every 8 hours PRN, nausea, vomiting, Starting on 10/22/24 at 1851, 1st Line. If inadequate response within 60 minutes, proceed to next-line agent or contact provider if no further options ordered. Patient should allow tablet to dissolve on tongue. Do not remove from blister pack until just before administering. [Order 1 End] [Order 2 Start] Name: ondansetron (Zofran) injection 4 mg Signed Summary: 4 mg, IntraVENous, Every 6 hours PRN, nausea, vomiting, Starting on 10/22/24 at 1851, 1st Line. Give IV if patient is unable to take orally. If inadequate response within 60 minutes, proceed to next-line agent or contact provider if no further options ordered. [Order 2 End] Start: 10-22-2024 End: 10-23-2024 Start: 10-22-2024 End: 10-22-2024 (4 sources) Start: 12-12-2024 End: 12-20-2024 Start: 10-23-2024 End: 11-04-2024 (2 sources) Start: 10-22-2024 End: 10-22-2024 (2 sources) Start: 12-12-2024 End: 12-18-2024 Problems Active Problems Problem Classification Problem Date Documented Date Episodic/Chronic Cardiac arrest and ventricular fibrillation (1 source) Cardiac arrest, cause unspecified; Translations: [CARDIAC ARREST CAUSE UNSPECIFIED] Onset: 5 Chronic Chronic kidney disease (20 sources) Chronic kidney disease stage 4; Translations: [End stage renal disease] Onset: 3 Chronic Chronic ulcer of skin (8 sources) Pressure ulcer of left buttock, stage 3; Translations: [Pressure ulcer, buttock] Onset: 5 11-14-2024 Chronic Complications of surgical procedures or medical care (20 sources) Postprocedural hematoma of a musculoskeletal structure following a musculoskeletal system procedure; Translations: [Wound dehiscence] Onset: 5 11-13-2024 Episodic Congestive heart failure; nonhypertensive (20 sources) Chronic diastolic (congestive) heart failure; Translations: [Acute diastolic (congestive) heart failure] Onset: 5 11-13-2024 Chronic Deficiency and other anemia (1 source) Anemia in chronic kidney disease; Translations: [ANEMIA IN CHRONIC KIDNEY DISEASE] Onset: 5 Chronic Deficiency and other anemia (2 sources) Anemia of chronic disease; Translations: [Anemia in other chronic diseases classified elsewhere] 11-22-2024 Chronic Deficiency and other anemia (2 sources) Anemia in other chronic diseases classified elsewhere; Translations: [Anemia in other chronic diseases classified elsewhere] Onset: 5 Chronic Deficiency and other anemia (2 sources) Other specified anemias; Translations: [Other specified anemias] Onset: 4 Episodic Diseases of white blood cells (1 source) Elevated white blood cell count, unspecified; Translations: [ELEVATED WHITE BLOOD CELL COUNT UNS] Onset: 5 Chronic E Codes: Fall (18 sources) Fall; Translations: [Unspecified fall, initial encounter] Onset: 5 06-29-2024 Episodic Epilepsy; convulsions (1 source) Epilepsy, unspecified, not intractable, without status epilepticus; Translations: [EPILEPSY UNS NOT INTRACT W/O SE] Onset: 5 Chronic Epilepsy; convulsions (20 sources) Seizure; Translations: [Unspecified convulsions] Onset: 5 11-02-2024 Episodic Essential hypertension (4 sources) Hypertensive disorder; Translations: [Essential (primary) hypertension] Onset: 4 02-12-2024 Chronic Hypertension with complications and secondary hypertension (20 sources) Hypertensive emergency; Translations: [Hypertensive emergency] Onset: 2 02-21-2022 Chronic Intestinal obstruction without hernia (1 source) Ileus, unspecified; Translations: [ILEUS UNSPECIFIED] Onset: 5 Episodic Nonspecific chest pain (1 source) Chest pain, unspecified; Translations: [CHEST PAIN UNSPECIFIED] Onset: 5 Episodic Nutritional deficiencies (6 sources) Malnutrition (calorie); Translations: [Moderate protein-calorie malnutrition] Onset: 5 12-14-2024 Chronic Open wounds of head; neck; and trunk (4 sources) Injury of buttock; Translations: [Unspecified open wound of left buttock, initial encounter] Onset: 5 11-11-2024 Episodic Other aftercare (2 sources) Other half-way (current) drug therapy; Translations: [OTH WASHER OFF CURRENT DRUG THERAPY] Onset: 5 Episodic Other circulatory disease (2 sources) History of cardiovascular surgery; Translations: [Presence of other vascular implants and grafts] Chronic Other circulatory disease (1 source) Personal history of sudden cardiac arrest; Translations: [PERSONAL HISTORY SUDDEN CARD ARREST] Onset: 5 Episodic Other connective tissue disease (1 source) Presence of right artificial hip joint; Translations: [PRESENCE RIGHT ARTIFICIAL HIP JOINT] Onset: 5 Chronic Other connective tissue disease (1 source) Presence of artificial hip joint, bilateral; Translations: [PRESENCE ARTIFICIAL HIP JOINT BILAT] Onset: 5 Chronic Other connective tissue disease (1 source) Infective myositis, right thigh; Translations: [INFECTIVE MYOSITIS RIGHT THIGH] Onset: 5 Episodic Other diseases of kidney and ureters (1 source) Secondary hyperparathyroidism of renal origin; Translations: [SEC HYPERPARATHYROIDISM RENAL ORIGN] Onset: 5 Chronic Other hematologic conditions (1 source) Elevated erythrocyte sedimentation rate; Translations: [ELEVATED ERYTHROCYTE SED RATE] Onset: Episodic Other hereditary and degenerative nervous system conditions (3 sources) Myoclonus; Translations: [Myoclonus] Onset: 5 06-29-2024 Chronic Other hereditary and degenerative nervous system conditions (1 source) Myoclonus; Translations: [Myoclonus] Onset: Chronic Other injuries and conditions due to external causes (6 sources) Hematoma; Translations: [Other injury of unspecified body region, initial encounter] Onset: 5 10-01-2022 Episodic Other injuries and conditions due to external causes (2 sources) Wound hemorrhage; Translations: [Other injury of unspecified body region, initial encounter] 10-01-2022 Episodic Other injuries and conditions due to external causes (2 sources) Other injury of unspecified body region, initial encounter; Translations: [Other injury of unspecified body region, initial encounter] Onset: Episodic Other injuries and conditions due to external causes (2 sources) Closed injury of head; Translations: [Unspecified injury of head, initial encounter] 12-08-2024 Episodic Other injuries and conditions due to external causes (2 sources) Unspecified injury of head, initial encounter; Translations: [Unspecified injury of head, initial encounter] Onset: Episodic Other nutritional; endocrine; and metabolic disorders (1 source) Hypocalcemia; Translations: [HYPOCALCEMIA] Onset: Chronic Pneumonia (except that caused by tuberculosis or sexually transmitted disease) (2 sources) Pneumonia, unspecified organism; Translations: [Unspecified bacterial pneumonia] Onset: Episodic Pulmonary heart disease (1 source) Pulmonary hypertension, unspecified; Translations: [PULMONARY HYPERTENSION UNSPECIFIED] Onset: Chronic Residual codes; unclassified (3 sources) Altered mental status, unspecified; Translations: [ALTERED MENTAL STATUS UNSPECIFIED] Onset: Episodic Residual codes; unclassified (2 sources) Altered mental status; Translations: [Altered mental status, unspecified] 11-11-2024 Episodic Residual codes; unclassified (15 sources) Edema of left lower limb; Translations: [Localized edema] Onset: 5 10-05-2024 Episodic Residual codes; unclassified (4 sources) Transient alteration of awareness; Translations: [Transient alteration of awareness] Onset: 5 12-28-2024 Episodic Residual codes; unclassified (2 sources) Localized edema; Translations: [Localized edema] Onset: Episodic Respiratory failure; insufficiency; arrest (adult) (1 source) Dependence on respirator [ventilator] status; Translations: [DEPENDENCE RESPIRATOR VENT STATUS] Onset: Chronic Septicemia (except in labor) (20 sources) Sepsis, unspecified organism; Translations: [Sepsis] Onset: 5 11-11-2024 Episodic Skin and subcutaneous tissue infections (2 sources) Cutaneous abscess, unspecified; Translations: [Cutaneous abscess of right lower limb] Onset: Episodic Unclassified (1 source) Patient encounter status; Translations: [Pre-transplant evaluation for lung transplant] Unclassified (1 source) OTHER TOXIC ENCEPHALOPATHY; Translations: [OTHER TOXIC ENCEPHALOPATHY] Onset: 5 Unclassified (1 source) ACIDOSIS UNSPECIFIED; Translations: [ACIDOSIS UNSPECIFIED] Onset: 5 Unclassified (1 source) PT NONCOMPL RENAL DIALYSIS OTH REAS; Translations: [PT NONCOMPL RENAL DIALYSIS OTH REAS] Onset: 5 Unclassified (1 source) ENCOUNT FOR SCREENING FOR COVID-19; Translations: [ENCOUNT FOR SCREENING FOR COVID-19] Onset: 5 Unclassified (2 sources) Post-op; Translations: [Post-op] Onset: 5 Viral infection (2 sources) COVID-19; Translations: [COVID-19] Onset: 5 Past or Other Problems Problem Classification Problem Date Documented Da te Episodic/Chronic Deficiency and other anemia (20 sources) Anemia; Translations: [Anemia, unspecified] Onset: 4 01-23-2024 Episodic Deficiency and other anemia (3 sources) Anemia, unspecified; Translations: [Anemia, unspecified] Onset: 4 Episodic E Codes: Adverse effects of medical drugs (4 sources) Adverse reaction to drug; Translations: [Adverse effect of unspecified drugs, medicaments and biological substances, initial encounter] Onset: 5 07-17-2024 Episodic Fluid and electrolyte disorders (9 sources) Hyperkalemia; Translations: [Hyperkalemia] Onset: 4 08-09-2023 Episodic Gastrointestinal hemorrhage (20 sources) Gastrointestinal hemorrhage; Translations: [Gastrointestinal hemorrhage, unspecified] Onset: 4 01-19-2024 Episodic Other lower respiratory disease (20 sources) Acute pulmonary edema; Translations: [Acute pulmonary edema] Onset: 4 02-19-2024 Episodic Other lower respiratory disease (20 sources) Dyspnea; Translations: [Shortness of breath] Onset: 4 03-02-2024 Episodic Other lower respiratory disease (3 sources) Acute pulmonary edema; Translations: [ACUTE PULMONARY EDEMA] Onset: 4 Episodic Other lower respiratory disease (1 source) Shortness of breath; Translations: [Shortness of breath] Onset: 4 Episodic Other nervous system disorders (3 sources) Fasciculation; Translations: [FASCICULATION] Onset: 5 Episodic Other screening for suspected conditions (not mental disorders or infectious disease) (8 sources) Patient encounter status; Translations: [Encounter for screening mammogram for malignant neoplasm of breast] Onset: 5 01-12-2023 Episodic Respiratory failure; insufficiency; arrest (adult) (3 sources) Acute respiratory failure with hypoxia; Translations: [ACUTE RESPIRATORY FAIL W/HYPOXIA] Onset: 5 Episodic Shock (3 sources) Severe sepsis with septic shock; Translations: [SEVERE SEPSIS WITH SEPTIC SHOCK] Onset: 5 Episodic Unclassified (4 sources) Pressure ulcer of left buttock, stage 3 (HCC) 11-15-2024 Unclassified (2 sources) Preprocedural examination done 12-06-2024 Viral infection (15 sources) Disease caused by 2019-nCoV; Translations: [COVID-19] Onset: 5 09-14-2024 Episodic Results Test Name Value Interpretation Reference Range Facility ED Nursing Noteon 12-28-2024 ED Nursing Note Normal [facility] ED Provider Noteon 5 ED Provider Note Normal [facility] Laboratory - Chemistry and C hemistry - challengeon 12-28-2024 Glucose [Mass/Vol] 80 mg/dL 70 - 100 mg/dL [facility] No Panel Informationon 12-28 Interpretation and review of laboratory results Normal [facility] Performed by: Haley Kirk, [address] [facility] [place] [address] CLIA ID: [id number] [facility] Basic Metabolic Profile (BMP )on 12-25-2024 CO2 [Moles/Vol] 24.2 mmol/L Normal 21.0-32.0 [facility] Comment on above: Result Comment: AMENDED REPORT 12/25/24 1007 CO2 previously reported as: 24.1 mmol/L Performed By: #### L 100.0500, L500.2500 #### [facility] [address] [place], [address] GAP 14 Normal 5-15 [facility] Comment on above: Performed By: #### L 100.0500, L500.2500 #### [facility] [address] [place], [address] CBC-Complete Blood Cnt No Di ffon 12-25-2024 Erythrocyte distribution width (RBC) [Ratio] 17.0 % High 11.6-14.6 [facility] Comment on above: Performed By: #### L 100.0500, L500.2500 #### [facility] [address] [place], [address] Hematocrit (Bld) [Volume fraction] 26.1 % Low 37-47 [facility] Comment on above: Performed By: #### L 100.0500, L500.2500 #### [facility] [address] [place], [address] Hemoglobin (Bld) [Mass/Vol] 8.5 g/dL Low 12.0-15.0 [facility] Comment on above: Performed By: #### L 100.0500, L500.2500 #### [facility] [address] [place], [address] MCH (RBC) [Entitic mass] 31.5 pg Normal 27.0-32.0 [facility] Comment on above: Performed By: #### L 100.0500, L500.2500 #### [facility] [address] [place], [address] MCHC (RBC) [Mass/Vol] 32.6 g/dL Normal 32-36 [facility] Comment on above: Performed By: #### L 100.0500, L500.2500 #### [facility] [address] [place], [address] MCV (RBC) [Entitic vol] 96.7 fL Normal 81-99 [facility] Comment on above: Performed By: #### L 100.0500, L500.2500 #### [facility] [address] [place], [address] Platelet mean volume (Bld) [Entitic vol] 10.9 fL Normal 6.2-12.0 [facility] Comment on above: Performed By: #### L 100.0500, L500.2500 #### [facility] [address] [place], [address] Platelets (Bld) [#/Vol] 435 10*3/uL Normal 150-450 [facility] Comment on above: Performed By: #### L 100.0500, L500.2500 #### [facility] [address] [place], [address] RBC (Bld) [#/Vol] 2.70 10*6/uL Low 4.2-5.4 [facility] Comment on above: Performed By: #### L 100.0500, L500.2500 #### [facility] [address] [place], [address] RDW SD 58.0 fl High 35.1-43.9 [facility] Comment on above: Performed By: #### L 100.0500, L500.2500 #### [facility] [address] [place], [address] WBC (Bld) [#/Vol] 11.2 10*3/uL High 4.4-11.0 [facility] Comment on above: Performed By: #### L 100.0500, L500.2500 #### [facility] [address] [place], [address] [id number] 12-20-2024 [id number] Transportation confirmed for 630. Called and spoke to brother Deshawn with update on time of discharge. RN and unit reactor operator notified via secure chat. [facility] [phone] Discharge med list transmitted to [facility] request[facility] [phone] [facility] [phone] Discharge order note d in epic. [facility] tasked to set up cot transport for return to [facility]. [facility] CBC (HEMOGRAM)on 12-20-2024 Erythrocyte distribution width (RBC) [Ratio] 15.9 % High 11.5-15.0 [facility] Comment on above: Performed By: #### L AB294 ####Detective Chief: PHILLY FRANCO ([phone])[address] Hematocrit (Bld) [Volume fraction] 20.9 % Low 35.0-47.0 [facility] Comment on above: Performed By: #### L AB294 ####Detective Chief: PHILYL FRANCO ([id number])[place] [address] [place] Hemoglobin (Bld) [Mass/Vol] 7.1 g/dL Low 11.7-16.0 [facility] Comment on above: Performed By: #### L AB294 ####Detective Chief: PHILLY FRANCO ([id number])[facility] ([facility])[address] [place] [address] MCH (RBC) [Entitic mass] 31.4 pg Normal 26.0-34.0 [facility] Comment on above: Performed By: #### L AB294 ####Detective Chief: PHILLY FRANCO ([phone])[facility])[address] [place] [address] MCHC 34.0 % Normal 30.5-36.0 [facility] Comment on above: Performed By: #### L AB294 ####Detective Chief: PHILLY FRANCO ([phone])[facility] ([facility])[address] [place] [address] MCV (RBC) [Entitic vol] 92.5 fL Normal 77.0-99.0 [facility] Comment on above: Performed By: #### L AB294 ####Detective Chief: PHILLY FRANCO ([id number])[facility] ([facility])[address] [place] [address] Platelet mean volume (Bld) [Entitic vol] 10.8 fL Normal 9.0-12.7 [facility] Comment on above: Performed By: #### L AB294 ####Detective Chief: PHILLY FRANCO ([id number])[facility] ([facility])[address] [place] [address] Platelets (Bld) [#/Vol] 237 10*3/uL Normal 140-440 [facility] Comment on above: Performed By: #### L AB294 ####Detective Chief: PHILLY FRANCO ([phone])[facility] ([facility])[address] [place] [address] RBC (Bld) [#/Vol] 2.26 10*6/uL Low 3.80-5.20 [facility] Comment on above: Performed By: #### L AB294 ####Detective Chief: PHILLY FRANCO ([id number])[facility] ([facility])[address] [place] [address] WBC (Bld) [#/Vol] 12.1 10*3/uL High 3.6-10.7 [facility] Comment on above: Performed By: #### L AB294 ####Detective Chief: PHILLY FRANCO ([id number])[facility] ([facility])[address] [place] [address] CBC panel Auto (Bld)on 12-20 Erythrocyte distribution width (RBC) [Ratio] 15.9 % High 11.5 - 15.0 % [facility] Hematocrit (Bld) [Volume fraction] 20.9 % Low 35.0 - 47.0 % [facility] Hemoglobin (Bld) [Mass/Vol] 7.1 g/dL Low 11.7 - 16.0 g/dL [facility] Interpretation and review of laboratory results Abnormal [facility] MCH (RBC) [Entitic mass] 31.4 pg 26.0 - 34.0 pg [facility] MCHC (RBC) [Mass/Vol] 34 % 30.5 - 36.0 % [facility] MCV (RBC) [Entitic vol] 92.5 fL 77.0 - 99.0 fL [facility] Platelet mean volume (Bld) [Entitic vol] 10.8 fL 9.0 - 12.7 fL [facility] Platelets (Bld) [#/Vol] 237 10*3/uL 140 - 440 10*3/uL [facility] RBC (Bld) [#/Vol] 2.26 10*6/uL Low 3.80 - 5.2 0 10*6/uL [facility] WBC (Bld) [#/Vol] 12.1 10*3/uL High 3.6 - 10.7 10*3/uL [facility] COMPREHENSIVE METABOLIC PANE Fam 12-20-2024 Albumin [Mass/Vol] 1.1 g/dL Low 3.4-4.8 [facility] Comment on above: Performed By: #### L AB17 ####Detective Chief: PHILLY FRANCO ([phone])[facility] ([facility])[address] [place] [address] [place] ALP [Catalytic activity/Vol] 155 U/L High 40-150 [facility] Comment on above: Performed By: #### L AB17 ####Detective Chief: PHILLY FRANCO ([phone])[facility] ([facility])[address] [place] [address] [place] ALT [Catalytic activity/Vol] U/L Normal <30 [facility] Comment on above: Performed By: #### L AB17 ####Detective Chief: PHILLY FRANCO ([phone])[facility] ([facility])[address] [place] [address] Anion gap [Moles/Vol] 7 mmol/L Normal 3-13 [facility] Comment on above: Performed By: #### L AB17 ####Detective Chief: PHILLY FRANCO ([phone])[facility] ([facility])[address] [place] [address] AST [Catalytic activity/Vol] 57 U/L High <34 [facility] Comment on above: Result Comment: TCPo tential interference from hemolysis Performed By: #### L AB17 ####Detective Chief: PHILLY FRANCO ([phone])[facility] ([facility])[address] [place] [address] Bilirubin [Mass/Vol] 0.6 mg/dL Normal <1.2 [facility] Comment on above: Performed By: #### L AB17 ####Detective Chief: PHILLY FRANCO ([phone])[facility] ([facility])[address] [place] [address] Calcium [Mass/Vol] 6.5 mg/dL Low 8.8-10.0 [facility] Comment on above: Performed By: #### L AB17 ####Detective Chief: PHILLY FRANCO ([phone])[facility] ([facility])[address] [place] [address] [place] Chloride [Moles/Vol] 106 mmol/L Normal 98-107 [facility] Comment on above: Performed By: #### L AB17 ####Detective Chief: PHILLY FRANCO ([phone])[facility])[address] [place] [address] CO2 [Moles/Vol] 21 mmol/L Low 23-31 [facility] Comment on above: Performed By: #### L AB17 ####Detective Chief: PHILLY FRANCO ([phone])[facility])[address] [place] [address] Creatinine [Mass/Vol] 2.84 mg/dL High 0.57-1.11 [facility] Comment on above: Performed By: #### L AB17 ####Detective Chief: PHILLY FRANCO ([phone])[address] GLOMERULAR FILTRATION RATE ML/MIN/1.73 SQ M.PREDICTED 16.9 mL/min/1.73m*2 Low >60.0 [facility] Comment on above: Result Comment: Calc ulation based on the Chronic Kidney Disease Epidemiology Collaboration (CKD-EPI) equation refit without adjustment for race Performed By: #### L AB17 ####Detective Chief: PHILLY FRANCO ([phone])[facility])[address] [place] [address] Glucose [Mass/Vol] 72 mg/dL Low 82-115 [facility] Comment on above: Performed By: #### L AB17 ####Detective Chief: PHILLY FRANCO ([phone])[facility])[address] [place] [address] Potassium [Moles/Vol] 4.3 mmol/L Normal 3.5-5.1 [facility] Comment on above: Result Comment: [facility] potassium values may be up to 0.5 mmol/L lower than serum values. Performed By: #### L AB17 ####Detective Chief: PHILLY FRANCO ([phone])[facility])[address] [place] [address] Protein [Mass/Vol] 5.1 g/dL Low 6.4-8.3 [facility] Comment on above: Performed By: #### L AB17 ####Detective Chief: PHILLY FRANCO ([phone])[facility])[address] [place] [address] Sodium [Moles/Vol] 134 mmol/L Low 136-145 [facility] Comment on above: Performed By: #### L AB17 ####Detective Chief: PHILLY FRANCO ([phone])[facility] ([facility])[address] [place] [address] Urea nitrogen [Mass/Vol] 15 mg/dL Normal 9-23 [facility] Comment on above: Performed By: #### L AB17 ####Detective Chief: PHILLY FRANCO ([phone])[facility] ([facility])[address] [place] [address] Comprehensive metabolic 1998 panelon 12-20-2024 Albumin [Mass/Vol] 1.1 g/dL Low 3.4 - 4.8 g/dL [facility] ALP [Catalytic activity/Vol] 155 U/L High 40 - 150 U/L [facility] ALT [Catalytic activity/Vol] U/L NINF - 30 U/L [facility] Anion gap [Moles/Vol] 7 mmol/L 3 - 13 mmol/L [facility] AST [Catalytic activity/Vol] 57 U/L High NINF - 34 U/L [facility] Bilirubin [Mass/Vol] 0.6 mg/dL NINF - 1.2 mg/dL [facility] Calcium [Mass/Vol] 6.5 mg/dL Low 8.8 - 10. 0 mg/dL [facility] Chloride [Moles/Vol] 106 mmol/L 98 - 10 7 mmol/L [facility] CO2 [Moles/Vol] 21 mmol/L Low 23 - 31 mmol/L [facility] Creatinine [Mass/Vol] 2.84 mg/dL High 0.57 - 1.11 mg/dL [facility] GFR/1.73 sq M.predicted (S/P/Bld) [Vol rate/Area] 16.9 mL/min Low - PINF [facility] Glucose [Mass/Vol] 72 mg/dL Low 82 - 115 mg/dL [facility] Interpretation and review of laboratory results Abnormal [facility] Potassium [Moles/Vol] 4.3 mmol/L 3.5 - 5.1 mmol/L [facility] Protein [Mass/Vol] 5.1 g/dL Low 6.4 - 8.3 g/dL [facility] Sodium [Moles/Vol] 134 mmol/L Low 136 - 145 mmol/L [facility] Urea nitrogen [Mass/Vol] 15 mg/dL 9 - 23 mg/dL [facility] - Chemistry and C hemistry - challengeon 12-20-2024 Glucose [Mass/Vol] 72 mg/dL 70 - 100 mg/dL [facility] Glucose [Mass/Vol] 73 mg/dL 70 - 100 mg/dL [facility] Glucose [Mass/Vol] 88 mg/dL 70 - 100 mg/dL [facility] No Panel Informationon 12-20 Interpretation and review of laboratory results Normal [facility] Interpretation and review of laboratory results Normal [facility] Interpretation and review of laboratory results Normal [facility] Nursing Noteon 12-20-2024 Nursing Note Attempted to call report to [facility]. No answer. Normal [facility] Nursing Note Discharge order placed. IVS removed. Transport here to take pt to SNF. Normal [facility] Nursing Note Normal [facility] Progress Noteon 12-20-2024 Progress Note Normal [facility] Progress Note Normal [facility] Progress Note Normal [facility] Progress Note Normal [facility] CBC (HEMOGRAM)on 12-19-2024 Erythrocyte distribution width (RBC) [Ratio] 15.5 % High 11.5-15.0 [facility] Comment on above: Performed By: #### L [id number] ####Detective Chief: PHILLY FRANCO ([id number])[facility] ([address] Hematocrit (Bld) [Volume fraction] 23.6 % Low 35.0-47.0 [facility] Comment on above: Performed By: #### L AB294 ####Detective Chief: PHILLY FRANCO ([phone])[facility])[address] [place] [address] Hemoglobin (Bld) [Mass/Vol] 8.2 g/dL Low 11.7-16.0 [facility] Comment on above: Performed By: #### L AB294 ####Detective Chief: PHILLY FRANCO ([phone])[facility])[address] [place] [address] MCH (RBC) [Entitic mass] 30.9 pg Normal 26.0-34.0 [facility] Comment on above: Performed By: #### L AB294 ####Detective Chief: PHILLY FARNCO ([phone])[facility])[address] [place] [address] MCHC 34.7 % Normal 30.5-36.0 [facility] Comment on above: Performed By: #### L AB294 ####Detective Chief: PHILLY FRANCO ([phone])[facility])[address] [place] [address] MCV (RBC) [Entitic vol] 89.1 fL Normal 77.0-99.0 [facility] Comment on above: Performed By: #### L AB294 ####Detective Chief: PHILLY FRANCO ([phone])[facility])[address] [place] [address] Platelet mean volume (Bld) [Entitic vol] 10.7 fL Normal 9.0-12.7 [facility] Comment on above: Performed By: #### L AB294 ####Detective Chief: PHILLY FRANCO ([id number])[facility])[address] [place] [address] [place] Platelets (Bld) [#/Vol] 274 10*3/uL Normal 140-440 [facility] Comment on above: Performed By: #### L AB294 ####Detective Chief: PHILLY FRANCO ([phone])[facility])[address] [place] [address] RBC (Bld) [#/Vol] 2.65 10*6/uL Low 3.80-5.20 [facility] Comment on above: Performed By: #### L AB294 ####Detective Chief: PHILLY FRANCO ([phone])[facility] ([facility])[address] [place] [address] WBC (Bld) [#/Vol] 15.7 10*3/uL High 3.6-10.7 [facility] Comment on above: Performed By: #### L AB294 ####Detective Chief: PHILLY FRANCO ([phone])[facility] ([facility])[address] [place] [address] CBC panel Auto (Bld)on 12-19 Erythrocyte distribution width (RBC) [Ratio] 15.5 % High 11.5 - 15.0 % [facility] Hematocrit (Bld) [Volume fraction] 23.6 % Low 35.0 - 47.0 % [facility] Hemoglobin (Bld) [Mass/Vol] 8.2 g/dL Low 11.7 - 16.0 g/dL [facility] Interpretation and review of laboratory results Abnormal [facility] MCH (RBC) [Entitic mass] 30.9 pg 26.0 - 34.0 pg [facility] MCHC (RBC) [Mass/Vol] 34.7 % 30.5 - 36.0 % [facility] MCV (RBC) [Entitic vol] 89.1 fL 77.0 - 99.0 fL [facility] Platelet mean volume (Bld) [Entitic vol] 10.7 fL 9.0 - 12.7 fL [facility] Platelets (Bld) [#/Vol] 274 10*3/uL 140 - 440 10*3/uL [facility] RBC (Bld) [#/Vol] 2.65 10*6/uL Low 3.80 - 5.2 0 10*6/uL [facility] WBC (Bld) [#/Vol] 15.7 10*3/uL High 3.6 - 10.7 10*3/uL [facility] COMPREHENSIVE METABOLIC PANE Fam 12-19-2024 Albumin [Mass/Vol] 1.2 g/dL Low 3.4-4.8 [facility] Comment on above: Performed By: #### L AB17 ####Detective Chief: PHILLY FRANCO ([phone])[facility] ([facility])[address] [place] [address] ALP [Catalytic activity/Vol] 144 U/L Normal 40-150 [facility] Comment on above: Performed By: #### L AB17 ####Detective Chief: PHILLY FRANCO ([id number])[facility] ([facility])[address] [place] [address] ALT [Catalytic activity/Vol] U/L Normal <30 [facility] Comment on above: Performed By: #### L AB17 ####Detective Chief: PHILLY FRANCO ([phone])[facility] ([facility])[address] [place] [address] Anion gap [Moles/Vol] 8 mmol/L Normal 3-13 [facility] Comment on above: Performed By: #### L AB17 ####Detective Chief: PHILLY FRANCO ([phone])[facility] ([facility])[address] [place] [address] AST [Catalytic activity/Vol] 49 U/L High <34 [facility] Comment on above: Performed By: #### L AB17 ####Detective Chief: PHILLY FRANCO ([phone])[facility] ([facility])[address] [place] [address] Bilirubin [Mass/Vol] 0.5 mg/dL Normal <1.2 [facility] Comment on above: Performed By: #### L AB17 ####Detective Chief: PHILLY FRANCO ([phone])[facility] ([facility])[address] [place] [address] [place] Calcium [Mass/Vol] 7.3 mg/dL Low 8.8-10.0 [facility] Comment on above: Performed By: #### L AB17 ####Detective Chief: PHILLY FRANCO ([phone])[facility] ([facility])[address] [place] [address] [place] Chloride [Moles/Vol] 102 mmol/L Normal 98-107 [facility] Comment on above: Performed By: #### L AB17 ####Detective Chief: PHILLY FRANCO ([phone])[facility])[address] [place] [address] CO2 [Moles/Vol] 25 mmol/L Normal 23-31 [facility] Comment on above: Performed By: #### L AB17 ####Detective Chief: PHILLY FRANCO ([phone])[facility])[address] [place] [address] Creatinine [Mass/Vol] 2.25 mg/dL High 0.57-1.11 [facility] Comment on above: Performed By: #### L AB17 ####Detective Chief: PHILLY FRANCO ([phone])[address] GLOMERULAR FILTRATION RATE ML/MIN/1.73 SQ M.PREDICTED 22.4 mL/min/1.73m*2 Low >60.0 [facility] Comment on above: Result Comment: Calc ulation based on the Chronic Kidney Disease Epidemiology Collaboration (CKD-EPI) equation refit without adjustment for race Performed By: #### L AB17 ####Detective Chief: PHILLY FRANCO ([phone])[address] Glucose [Mass/Vol] 73 mg/dL Low 82-115 [facility] Comment on above: Performed By: #### L AB17 ####Detective Chief: PHILLY FRANCO ([phone])[address] Potassium [Moles/Vol] 3.9 mmol/L Normal 3.5-5.1 [facility] Comment on above: Result Comment: [facility] potassium values may be up to 0.5 mmol/L lower than serum values. Performed By: #### L AB17 ####Detective Chief: PHILLY FRANCO ([phone])[facility])[address] [place] [address] Protein [Mass/Vol] 5.3 g/dL Low 6.4-8.3 [facility] Comment on above: Performed By: #### L AB17 ####Detective Chief: PHILLY FRANCO ([phone])[facility] ([facility])[address] [place] [address] Sodium [Moles/Vol] 135 mmol/L Low 136-145 [facility] Comment on above: Performed By: #### L AB17 ####Detective Chief: PHILLY FRACNO ([phone])[facility] ([facility])[address] [place] [address] Urea nitrogen [Mass/Vol] 11 mg/dL Normal 9-23 [facility] Comment on above: Performed By: #### L AB17 ####Detective Chief: PHILLY FRANCO ([phone])[facility] ([facility])[address] [place] [address] Comprehensive metabolic 1998 panelOrdered By: Mak Hobbs on 12-19-2024 Albumin [Mass/Vol] 1.2 g/dL Low 3.4 - 4.8 g/dL [facility] ALP [Catalytic activity/Vol] 144 U/L 40 - 150 U/L [facility] ALT [Catalytic activity/Vol] U/L NINF - 30 U/L [facility] Anion gap [Moles/Vol] 8 mmol/L 3 - 13 mmol/L [facility] AST [Catalytic activity/Vol] 49 U/L High NINF - 34 U/L [facility] Bilirubin [Mass/Vol] 0.5 mg/dL NINF - 1.2 mg/dL [facility] Calcium [Mass/Vol] 7.3 mg/dL Low 8.8 - 10. 0 mg/dL [facility] Chloride [Moles/Vol] 102 mmol/L 98 - 10 7 mmol/L [facility] CO2 [Moles/Vol] 25 mmol/L 23 - 31 mmol/L [facility] Creatinine [Mass/Vol] 2.25 mg/dL High 0.57 - 1.11 mg/dL [facility] GFR/1.73 sq M.predicted (S/P/Bld) [Vol rate/Area] 22.4 mL/min Low - PINF [facility] Glucose [Mass/Vol] 73 mg/dL Low 82 - 115 mg/dL [facility] Interpretation and review of laboratory results Abnormal [facility] Potassium [Moles/Vol] 3.9 mmol/L 3.5 - 5.1 mmol/L [facility] Protein [Mass/Vol] 5.3 g/dL Low 6.4 - 8.3 g/dL [facility] Sodium [Moles/Vol] 135 mmol/L Low 136 - 145 mmol/L [facility] Urea nitrogen [Mass/Vol] 11 mg/dL 9 - 23 mg/dL [facility] HEMOGLOBIN AND HEMATOCRIT, B LOODon 12-19-2024 Hematocrit (Bld) [Volume fraction] 24.0 % Low 35.0-47.0 [facility] Comment on above: Performed By: #### L [id number] ####Detective Chief: PHILLY FRANCO ([phone])[facility])[address] [place] [address] Hemoglobin (Bld) [Mass/Vol] 8.1 g/dL Low 11.7-16.0 [facility] Comment on above: Performed By: #### L [id number] ####Detective Chief: PHILLY FRANCO ([phone])[address] Hemoglobin (Bld) [Mass/Vol]o n 12-19-2024 Hematocrit (Bld) [Volume fraction] 24 % Low 35.0 - 47.0 % [facility] Interpretation and review of laboratory results Abnormal [facility] Laboratory - Chemistry and C hemistry - challengeon 12-19-2024 Glucose [Mass/Vol] 84 mg/dL 70 - 100 mg/dL [facility] Glucose [Mass/Vol] 57 mg/dL Low 70 - 100 mg/dL [facility] Glucose [Mass/Vol] 67 mg/dL Low 70 - 100 mg/dL [facility] Laboratory - Hematology and Cell countson 12-19-2024 Hemoglobin (Bld) [Mass/Vol] 8.1 g/dL Low 11.7 - 16.0 g/dL [facility] No Panel Informationon 12-19 Interpretation and review of laboratory results Normal [facility] Interpretation and review of laboratory results Abnormal [facility] Interpretation and review of laboratory results Abnormal [facility] Nursing Noteon 12-19-2024 Nursing Note Normal [facility] Progress Noteon 12-19-2024 Progress Note Normal [facility] Progress Note Normal [facility] Progress Note Normal [facility] Progress Note Normal [facility] Progress Note Normal [facility] Progress Note Normal [facility] Progress Note Normal [facility] [id number] 12-18-2024 [id number] Normal [facility] [id number] 12-18-2024 [id number] Normal [facility] Anesthesia Noteon 12-18-2024 Anesthesia Note Normal [facility] Anesthesia Note Normal [facility] CBC (HEMOGRAM)on 12-18-2024 Erythrocyte distribution width (RBC) [Ratio] 14.9 % Normal 11.5-15.0 [facility] Comment on above: Performed By: #### L [id number] ####Detective Chief: PHILLY FRANCO ([id number])[address] Hematocrit (Bld) [Volume fraction] 25.3 % Low 35.0-47.0 [facility] Comment on above: Performed By: #### L AB294 ####Detective Chief: PHILLY FRANCO ([id number])[address] Hemoglobin (Bld) [Mass/Vol] 9.0 g/dL Low 11.7-16.0 [facility] Comment on above: Performed By: #### L AB294 ####Detective Chief: PHILLY FRANCO ([id number])[address] MCH (RBC) [Entitic mass] 30.8 pg Normal 26.0-34.0 [facility] Comment on above: Performed By: #### L AB294 ####Detective Chief: PHILLY FRANCO ([phone])[address] MCHC 35.6 % Normal 30.5-36.0 [facility] Comment on above: Performed By: #### L AB294 ####Detective Chief: PHILLY FRANCO ([phone])[facility] ([facility])[address] [place] [address] MCV (RBC) [Entitic vol] 86.6 fL Normal 77.0-99.0 [facility] Comment on above: Performed By: #### L AB294 ####Detective Chief: PHILLY FRANCO ([phone])[facility] ([facility])[address] [place] [address] Platelet mean volume (Bld) [Entitic vol] 10.7 fL Normal 9.0-12.7 [facility] Comment on above: Performed By: #### L AB294 ####Detective Chief: PHILLY FRANCO ([phone])[facility] ([facility])[address] [place] [address] Platelets (Bld) [#/Vol] 327 10*3/uL Normal 140-440 [facility] Comment on above: Performed By: #### L AB294 ####Detective Chief: PHILLY FRANCO ([phone])[facility] ([facility])[address] [place] [address] RBC (Bld) [#/Vol] 2.92 10*6/uL Low 3.80-5.20 [facility] Comment on above: Performed By: #### L AB294 ####Detective Chief: PHILLY FRANCO ([phone])[facility] ([facility])[address] [place] [address] WBC (Bld) [#/Vol] 19.3 10*3/uL High 3.6-10.7 [facility] Comment on above: Performed By: #### L AB294 ####Detective Chief: PHILLY FRANCO ([phone])[facility])[address] [place] [address] CBC panel Auto (Bld)on 12-18 Erythrocyte distribution width (RBC) [Ratio] 14.9 % 11.5 - 15.0 % [facility] Hematocrit (Bld) [Volume fraction] 25.3 % Low 35.0 - 47.0 % [facility] Hemoglobin (Bld) [Mass/Vol] 9 g/dL Low 11.7 - 16.0 g/dL [facility] Interpretation and review of laboratory results Abnormal [facility] MCH (RBC) [Entitic mass] 30.8 pg 26.0 - 34.0 pg [facility] MCHC (RBC) [Mass/Vol] 35.6 % 30.5 - 36.0 % [facility] MCV (RBC) [Entitic vol] 86.6 fL 77.0 - 99.0 fL [facility] Platelet mean volume (Bld) [Entitic vol] 10.7 fL 9.0 - 12.7 fL [facility] Platelets (Bld) [#/Vol] 327 10*3/uL 140 - 440 10*3/uL [facility] RBC (Bld) [#/Vol] 2.92 10*6/uL Low 3.80 - 5.2 0 10*6/uL [facility] WBC (Bld) [#/Vol] 19.3 10*3/uL High 3.6 - 10.7 10*3/uL [facility] COMPREHENSIVE METABOLIC PANE Fam 12-18-2024 Albumin [Mass/Vol] 1.3 g/dL Low 3.4-4.8 [facility] Comment on above: Performed By: #### L AB17 ####Detective Chief: PHILLY FRANCO ([phone])[address] ALP [Catalytic activity/Vol] 136 U/L Normal 40-150 [facility] Comment on above: Performed By: #### L AB17 ####Detective Chief: PHILLY FRANCO ([phone])[address] ALT [Catalytic activity/Vol] 6 U/L Normal <30 [facility] Comment on above: Performed By: #### L AB17 ####Detective Chief: PHILLY FRANCO ([phone])[facility])[address] [place] [address] Anion gap [Moles/Vol] 6 mmol/L Normal 3-13 [facility] Comment on above: Performed By: #### L AB17 ####Detective Chief: PHILLY FRANCO ([phone])[facility] ([facility])[address] [place] [address] AST [Catalytic activity/Vol] 51 U/L High <34 [facility] Comment on above: Performed By: #### L AB17 ####Detective Chief: PHILLY FRANCO ([phone])[facility] ([facility])[address] [place] [address] Bilirubin [Mass/Vol] 0.5 mg/dL Normal <1.2 [facility] Comment on above: Performed By: #### L AB17 ####Detective Chief: PHILLY FRANCO ([phone])[facility] ([facility])[address] [place] [address] Calcium [Mass/Vol] 7.3 mg/dL Low 8.8-10.0 [facility] Comment on above: Performed By: #### L AB17 ####Detective Chief: PHILLY FRANCO ([phone])[facility] ([facility])[address] [place] [address] Chloride [Moles/Vol] 97 mmol/L Low 98-107 [facility] Comment on above: Performed By: #### L AB17 ####Detective Chief: PHILLY FRANCO ([phone])[facility])[address] [place] [address] CO2 [Moles/Vol] 25 mmol/L Normal 23-31 [facility] Comment on above: Performed By: #### L AB17 ####Detective Chief: PHILLY FRANCO ([phone])[facility])[address] [place] [address] Creatinine [Mass/Vol] 3.46 mg/dL High 0.57-1.11 [facility] Comment on above: Performed By: #### L AB17 ####Detective Chief: PHILLY [id number])[facility])[address] [place] [address] [place] GLOMERULAR FILTRATION RATE ML/MIN/1.73 SQ M.PREDICTED 13.4 mL/min/1.73m*2 Low >60.0 [facility] Comment on above: Result Comment: Calc ulation based on the Chronic Kidney Disease Epidemiology Collaboration (CKD-EPI) equation refit without adjustment for race Performed By: #### L AB17 ####Detective Chief: PHILLY FRANCO ([phone])[facility] ([facility])[address] [place] [address] Glucose [Mass/Vol] 89 mg/dL Normal 82-115 [facility] Comment on above: Performed By: #### L AB17 ####Detective Chief: PHILLY FRANCO ([phone])[facility])[address] [place] [address] Potassium [Moles/Vol] 4.4 mmol/L Normal 3.5-5.1 [facility] Comment on above: Result Comment: [facility] potassium values may be up to 0.5 mmol/L lower than serum values. Performed By: #### L AB17 ####Detective Chief: PHILLY FRANCO ([phone])[facility])[address] [place] [address] [place] Protein [Mass/Vol] 5.5 g/dL Low 6.4-8.3 [facility] Comment on above: Performed By: #### L AB17 ####Detective Chief: PHILLY FRANCO ([phone])[facility])[address] [place] [address] [place] Sodium [Moles/Vol] 128 mmol/L Low 136-145 [facility] Comment on above: Performed By: #### L AB17 ####Detective Chief: PHILLY FRANCO ([phone])[facility])[address] [place] [address] [place] Urea nitrogen [Mass/Vol] 18 mg/dL Normal 9-23 [facility] Comment on above: Performed By: #### L AB17 ####Detective Chief: PHILLY FRANCO ([phone])[facility] ([address] Comprehensive metabolic 1998 panelon 12-18-2024 Albumin [Mass/Vol] 1.3 g/dL Low 3.4 - 4.8 g/dL [facility] ALP [Catalytic activity/Vol] 136 U/L 40 - 150 U/L [facility] ALT [Catalytic activity/Vol] 6 U/L NINF - 30 U/L [facility] Anion gap [Moles/Vol] 6 mmol/L 3 - 13 mmol/L [facility] AST [Catalytic activity/Vol] 51 U/L High NINF - 34 U/L [facility] Bilirubin [Mass/Vol] 0.5 mg/dL NINF - 1.2 mg/dL [facility] Calcium [Mass/Vol] 7.3 mg/dL Low 8.8 - 10. 0 mg/dL [facility] Chloride [Moles/Vol] 97 mmol/L Low 98 - 10 7 mmol/L [facility] CO2 [Moles/Vol] 25 mmol/L 23 - 31 mmol/L [facility] Creatinine [Mass/Vol] 3.46 mg/dL High 0.57 - 1.11 mg/dL [facility] GFR/1.73 sq M.predicted (S/P/Bld) [Vol rate/Area] 13.4 mL/min Low - PINF [facility] Glucose [Mass/Vol] 89 mg/dL 82 - 115 mg/dL [facility] Interpretation and review of laboratory results Abnormal [facility] Potassium [Moles/Vol] 4.4 mmol/L 3.5 - 5.1 mmol/L [facility] Protein [Mass/Vol] 5.5 g/dL Low 6.4 - 8.3 g/dL [facility] Sodium [Moles/Vol] 128 mmol/L Low 136 - 145 mmol/L [facility] Urea nitrogen [Mass/Vol] 18 mg/dL 9 - 23 mg/dL [facility] HEMOGLOBIN AND HEMATOCRIT, B LOODon 12-18-2024 Hematocrit (Bld) [Volume fraction] 22.6 % Low 35.0-47.0 [facility] Comment on above: Performed By: #### L [id number] ####Detective Chief: PHILLY FRANCO ([phone])[facility] ([facility])[address] [place] [address] Hemoglobin (Bld) [Mass/Vol] 7.9 g/dL Low 11.7-16.0 [facility] Comment on above: Performed By: #### L AB753 ####Detective Chief: PHILLY FRANCO ([phone])[facility] ([facility])[address] [place] [address] Hematocrit (Bld) [Volume fraction] 25.1 % Low 35.0-47.0 [facility] Comment on above: Performed By: #### L AB753 ####Detective Chief: PHILLY FRANCO ([phone])[facility] ([facility])[address] [place] [address] Hemoglobin (Bld) [Mass/Vol] 8.8 g/dL Low 11.7-16.0 [facility] Comment on above: Performed By: #### L AB753 ####Detective Chief: PHILLY FRANCO ([phone])[facility] ([facility])[address] [place] [address] Hemoglobin (Bld) [Mass/Vol]o n 12-18-2024 Hematocrit (Bld) [Volume fraction] 22.6 % Low 35.0 - 47.0 % [facility] Interpretation and review of laboratory results Abnormal [facility] Hematocrit (Bld) [Volume fraction] 25.1 % Low 35.0 - 47.0 % [facility] Interpretation and review of laboratory results Abnormal [facility] - Chemistry and C hemistry - challengeon 12-18-2024 Glucose [Mass/Vol] 93 mg/dL 70 - 100 mg/dL [facility] Glucose [Mass/Vol] 83 mg/dL 70 - 100 mg/dL [facility] Laboratory - Hematology and Cell countson 12-18-2024 Hemoglobin (Bld) [Mass/Vol] 7.9 g/dL Low 11.7 - 16.0 g/dL [facility] Hemoglobin (Bld) [Mass/Vol] 8.8 g/dL Low 11.7 - 16.0 g/dL [facility] MR Brain WO contraston 12-18 [facility] Radiology Study observation (narrative) [facility] MR Brain WO contrastOrdered By: Andrea Gonzales on 12-18-2024 [facility] Work Phone: MR Cervical spine WO and W c ontrast Indu 12-18-2024 [facility] Radiology Study observation (narrative) [facility] No Panel Informationon 12-18 Interpretation and review of laboratory results Normal [facility] Interpretation and review of laboratory results Normal [facility] Nursing Noteon 12-18-2024 Nursing Note Normal [facility] Progress Noteon 12-18-2024 Progress Note Vancomycin therapy h as been discontinued by Dr. Shamar More on 12/18/24. Thank you for the consult. Pharmacy signing off for vancomycin dosing. Jess Byrd [facility], Date: 12/18/24 Time: 3:54 PM Normal [facility] Progress Note Normal [facility] Progress Note Normal [facility] Progress Note Normal [facility] Progress Note Normal [facility] Progress Note Normal [facility] Progress Note Normal [facility] Progress Note Normal [facility] Bacteria identified Cx Nom ( Bld)on 12-17-2024 Interpretation and review of laboratory results Normal [facility] CBC (HEMOGRAM)on 12-17-2024 Erythrocyte distribution width (RBC) [Ratio] 17.6 % High 11.5-15.0 [facility] Comment on above: Performed By: #### L [id number] ####Detective Chief: PHILLY FRANCO ([phone])[facility] ([address] Hematocrit (Bld) [Volume fraction] 12.6 % Low 35.0-47.0 [facility] Comment on above: Performed By: #### L AB294 ####Detective Chief: PHILLY FRANCO ([phone])[facility] ([facility])[address] [place] [address] Hemoglobin (Bld) [Mass/Vol] 4.2 g/dL Critically low 11.7-16.0 [facility] Comment on above: Performed By: #### L AB294 ####Detective Chief: PHILLY FRANCO ([phone])[facility])[address] [place] [address] MCH (RBC) [Entitic mass] 30.2 pg Normal 26.0-34.0 [facility] Comment on above: Performed By: #### L AB294 ####Detective Chief: PHILLY FRANCO ([phone])[facility] ([facility])[address] [place] [address] MCHC 33.3 % Normal 30.5-36.0 [facility] Comment on above: Performed By: #### L AB294 ####Detective Chief: PHILLY FRANCO ([phone])[facility])[address] [place] [address] MCV (RBC) [Entitic vol] 90.6 fL Normal 77.0-99.0 [facility] Comment on above: Performed By: #### L AB294 ####Detective Chief: PHILLY FRANCO ([phone])[facility] ([facility])[address] [place] [address] Platelet mean volume (Bld) [Entitic vol] 11.0 fL Normal 9.0-12.7 [facility] Comment on above: Performed By: #### L AB294 ####Detective Chief: PHILLY FRANCO ([phone])[facility])[address] [place] [address] Platelets (Bld) [#/Vol] 350 10*3/uL Normal 140-440 [facility] Comment on above: Performed By: #### L AB294 ####Detective Chief: PHILLY FRANCO ([phone])[facility])[address] [place] [address] RBC (Bld) [#/Vol] 1.39 10*6/uL Low 3.80-5.20 [facility] Comment on above: Performed By: #### L AB294 ####Detective Chief: PHILLY FRANCO ([phone])[facility])[address] [place] [address] WBC (Bld) [#/Vol] 12.8 10*3/uL High 3.6-10.7 [facility] Comment on above: Performed By: #### L AB294 ####Detective Chief: PHILLY FRANCO ([phone])[facility])[address] [place] [address] Erythrocyte distribution width (RBC) [Ratio] 17.6 % High 11.5-15.0 [facility] Comment on above: Performed By: #### L AB294 ####Detective Chief: PHILLY FRANCO ([phone])[facility])[address] [place] [address] Hematocrit (Bld) [Volume fraction] 12.6 % Low 35.0-47.0 [facility] Comment on above: Performed By: #### L AB294 ####Detective Chief: PHILLY FRANCO ([phone])[address] Hemoglobin (Bld) [Mass/Vol] 4.1 g/dL Critically low 11.7-16.0 [facility] Comment on above: Performed By: #### L AB294 ####Detective Chief: PHILLY FRANCO ([phone])[facility])[address] [place] [address] MCH (RBC) [Entitic mass] 29.5 pg Normal 26.0-34.0 [facility] Comment on above: Performed By: #### L AB294 ####Detective Chief: PHILLY FRANCO ([phone])[address] MCHC 32.5 % Normal 30.5-36.0 [facility] Comment on above: Performed By: #### L AB294 ####Detective Chief: PHILLY FRANCO ([phone])[facility])[address] [place] [address] MCV (RBC) [Entitic vol] 90.6 fL Normal 77.0-99.0 [facility] Comment on above: Performed By: #### L AB294 ####Detective Chief: PHILLY FRANCO ([phone])[facility])[address] [place] [address] Platelet mean volume (Bld) [Entitic vol] 10.7 fL Normal 9.0-12.7 [facility] Comment on above: Performed By: #### L AB294 ####Detective Chief: PHILLY FRANCO ([phone])[facility])[address] [place] [address] Platelets (Bld) [#/Vol] 322 10*3/uL Normal 140-440 [facility] Comment on above: Performed By: #### L AB294 ####Detective Chief: PHILLY FRANCO ([phone])[facility])[address] [place] [address] RBC (Bld) [#/Vol] 1.39 10*6/uL Low 3.80-5.20 [facility] Comment on above: Performed By: #### L AB294 ####Detective Chief: PHILLY FRANCO ([phone])[facility])[address] [place] [address] WBC (Bld) [#/Vol] 11.3 10*3/uL High 3.6-10.7 [facility] Comment on above: Performed By: #### L AB294 ####Detective Chief: PHILLY FRANCO ([phone])[facility])[address] [place] [address] CBC panel Auto (Bld)Ordered By: Lindy Johansen on 12-17-2024 Erythrocyte distribution width (RBC) [Ratio] 17.6 % High 11.5 - 15.0 % [facility] Hematocrit (Bld) [Volume fraction] 12.6 % Low 35.0 - 47.0 % [facility] Hemoglobin (Bld) [Mass/Vol] 4.2 g/dL Critically low 11.7 - 16.0 g/dL [facility] Interpretation and review of laboratory results Abnormal [facility] MCH (RBC) [Entitic mass] 30.2 pg 26.0 - 34.0 pg [facility] MCHC (RBC) [Mass/Vol] 33.3 % 30.5 - 36.0 % [facility] MCV (RBC) [Entitic vol] 90.6 fL 77.0 - 99.0 fL [facility] Platelet mean volume (Bld) [Entitic vol] 11 fL 9.0 - 12.7 fL [facility] Platelets (Bld) [#/Vol] 350 10*3/uL 140 - 440 10*3/uL [facility] RBC (Bld) [#/Vol] 1.39 10*6/uL Low 3.80 - 5.2 0 10*6/uL [facility] WBC (Bld) [#/Vol] 12.8 10*3/uL High 3.6 - 10.7 10*3/uL [facility] CBC panel Auto (Bld)on 12-17 Erythrocyte distribution width (RBC) [Ratio] 17.6 % High 11.5 - 15.0 % [facility] Hematocrit (Bld) [Volume fraction] 12.6 % Low 35.0 - 47.0 % [facility] Hemoglobin (Bld) [Mass/Vol] 4.1 g/dL Critically low 11.7 - 16.0 g/dL [facility] Interpretation and review of laboratory results Abnormal [facility] MCH (RBC) [Entitic mass] 29.5 pg 26.0 - 34.0 pg [facility] MCHC (RBC) [Mass/Vol] 32.5 % 30.5 - 36.0 % [facility] MCV (RBC) [Entitic vol] 90.6 fL 77.0 - 99.0 fL [facility] Platelet mean volume (Bld) [Entitic vol] 10.7 fL 9.0 - 12.7 fL [facility] Platelets (Bld) [#/Vol] 322 10*3/uL 140 - 440 10*3/uL [facility] RBC (Bld) [#/Vol] 1.39 10*6/uL Low 3.80 - 5.2 0 10*6/uL [facility] WBC (Bld) [#/Vol] 11.3 10*3/uL High 3.6 - 10.7 10*3/uL [facility] COMPREHENSIVE METABOLIC PANE Fam 12-17-2024 Albumin [Mass/Vol] 1.3 g/dL Low 3.4-4.8 [facility] Comment on above: Performed By: #### L AB17 ####Detective Chief: PHILLY FRANCO ([phone])[facility] [place] [address] ALP [Catalytic activity/Vol] 130 U/L Normal 40-150 [facility] Comment on above: Performed By: #### L AB17 ####Detective Chief: PHILLY FRANCO ([phone])[facility] ([facility])[address] [place] [address] ALT [Catalytic activity/Vol] 8 U/L Normal <30 [facility] Comment on above: Performed By: #### L AB17 ####Detective Chief: PHILLY FRANCO ([phone])[facility] ([facility] [place] [address] Anion gap [Moles/Vol] 7 mmol/L Normal 3-13 [facility] Comment on above: Performed By: #### L AB17 ####Detective Chief: PHILLY FRANCO ([phone])[facility] [facility] ([facility])[address] [place] [address] [place] AST [Catalytic activity/Vol] 41 U/L High <34 [facility] Comment on above: Performed By: #### L [id number] ####Detective Chief: PHILLY FRANCO ([phone])[facility] ([facility])[address] [place] [address] [place] Bilirubin [Mass/Vol] 0.5 mg/dL Normal <1.2 [facility] Comment on above: Performed By: #### L [id number] ####Detective Chief: PHILLY FRANCO ([phone])[facility] ([facility] [place] [address] [place] Calcium [Mass/Vol] 7.3 mg/dL Low 8.8-10.0 [facility] Comment on above: Performed By: #### L [id number] ####Detective Chief: PHILLY FRANCO ([phone])[facility] ([facility])[address] [place] [address] Chloride [Moles/Vol] 95 mmol/L Low 98-107 [facility] Comment on above: Performed By: #### L [id number] ####Detective Chief: PHILLY FRANCO ([phone])[facility] ([facility])[address] [place] [address] [place] CO2 [Moles/Vol] 26 mmol/L Normal 23-31 [facility] Comment on above: Performed By: #### L [id number] ####Detective Chief: PHILLY FRANCO ([phone])[facility] ([facility])[address] [place] [address] Creatinine [Mass/Vol] 2.91 mg/dL High 0.57-1.11 [facility] Comment on above: Performed By: #### L [id number] ####Detective Chief: PHILLY FRANCO ([phone])[facility] ([facility])[address] [place] [address] [place] GLOMERULAR FILTRATION RATE ML/MIN/1.73 SQ M.PREDICTED 16.4 mL/min/1.73m*2 Low >60.0 [facility] Comment on above: Result Comment: Calc ulation based on the Chronic Kidney Disease Epidemiology Collaboration (CKD-EPI) equation refit without adjustment for race Performed By: #### L [id number] ####Detective Chief: PHILLY FRANCO ([phone])[facility] ([facility])[address] [place] [address] [place] Glucose [Mass/Vol] 110 mg/dL Normal 82-115 [facility] Comment on above: Performed By: #### L [id number] ####Detective Chief: PHILLY FRANCO ([phone])[facility] ([facility])[address] [place] [address] [place] Potassium [Moles/Vol] 4.0 mmol/L Normal 3.5-5.1 [facility] Comment on above: Result Comment: [facility] potassium values may be up to 0.5 mmol/L lower than serum values. Performed By: #### L [id number] ####Detective Chief: PHILLY FRANCO ([phone])[facility] ([facility])[address] [place] [address] Protein [Mass/Vol] 5.6 g/dL Low 6.4-8.3 [facility] Comment on above: Performed By: #### L [id number] ####Detective Chief: PHILLY FRANCO ([phone])[facility] ([facility])[address] [place] [address] Sodium [Moles/Vol] 128 mmol/L Low 136-145 [facility] Comment on above: Performed By: #### L [id number] ####Detective Chief: PHILLY FRANCO ([phone])[facility] ([facility])[address] [place] [address] Urea nitrogen [Mass/Vol] 14 mg/dL Normal 9-23 [facility] Comment on above: Performed By: #### L [id number] ####Detective Chief: PHILLY FRANCO ([phone])[facility] ([facility])[address] [place] [address] Coagulation index TEG Qn (Bl d)Ordered By: Juventino Lares on 12-17-2024 APTEM A10 67 mm 50 - 70 mm [facility] APTEM A20 72 mm High 50 - 70 mm [facility] Clot angle TEG (Bld) [Angle] 82 High [facility] Clot formation.extrinsic coagulation system activated Rotational TEG (Bld) [Time] 69 s 43 - 82 s [facility] Clot formation.extrinsic coagulation system activated Rotational TEG (Bld) [Time] 38 s Low 48 - 127 s [facility] Clot formation.extrinsic coagulation system activated Rotational TEG (Bld) [Time] 82 High [facility] formation.extrinsic coagulation system activated Rotational TEG (Bld) [Time] 67 mm 50 - 70 mm [facility] Clot formation.extrinsic coagulation system activated Rotational TEG (Bld) [Time] 72 mm High 50 - 70 mm [facility] Clot formation.extrinsic coagulation system activated Rotational TEG (Bld) [Time] 73 mm High 52 - 70 mm [facility] Clot formation.extrinsic coagulation system activated.fibrinolysis suppressed Rotational TEG (Bld) [Time] 37 s Low 48 - 127 s [facility] Clot formation.extrinsic coagulation system activated.fibrinolysis suppressed Rotational TEG (Bld) [Time] 31 mm High 7 - 24 mm [facility] Clot formation.extrinsic coagulation system activated.fibrinolysis suppressed Rotational TEG (Bld) [Time] 30 mm [facility] Clotting time.extrinsic coagulation system activated.fibrinolysis suppressed Rotational TEG (Bld) 78 s 43 - 82 s [facility] Interpretation and review of laboratory results Abnormal [facility] Maximum clot firmness.extrinsic coagulation system activated.fibrinolysis suppressed Rotational TEG (Bld) [Length] 74 mm High 52 - 70 mm [facility] Comprehensive metabolic 1998 panelon 12-17-2024 Albumin [Mass/Vol] 1.3 g/dL Low 3.4 - 4.8 g/dL [facility] ALP [Catalytic activity/Vol] 130 U/L 40 - 150 U/L [facility] ALT [Catalytic activity/Vol] 8 U[facility]L [facility] Anion gap [Moles/Vol] 7 mmol/L 3 - 13 mmol/L [facility] AST [Catalytic activity/Vol] 41 U/L High NINF - 34 U/L [facility] Bilirubin [Mass/Vol] 0.5 mg/dL [facility] - 1.2 mg/dL [facility] Calcium [Mass/Vol] 7.3 mg/dL Low 8.8 - 10. 0 mg/dL [facility] Chloride [Moles/Vol] 95 mmol/L Low 98 - 10 7 mmol/L [facility] CO2 [Moles/Vol] 26 mmol/L 23 - 31 mmol/L [facility] Creatinine [Mass/Vol] 2.91 mg/dL High 0.57 - 1.11 mg/dL [facility] GFR/1.73 sq M.predicted (S/P/Bld) [Vol rate/Area] 16.4 mL/min Low - PINF [facility] Glucose [Mass/Vol] 110 mg/dL 82 - 115 mg/dL [facility] Interpretation and review of laboratory results Abnormal [facility] Potassium [Moles/Vol] 4 mmol/L 3.5 - 5.1 mmol/L [facility] Protein [Mass/Vol] 5.6 g/dL Low 6.4 - 8.3 g/dL [facility] Sodium [Moles/Vol] 128 mmol/L Low 136 - 145 mmol/L [facility] Urea nitrogen [Mass/Vol] 14 mg/dL 9 - 23 mg/dL [facility] HEMOGLOBIN AND HEMATOCRIT, B LOODon 12-17-2024 Hematocrit (Bld) [Volume fraction] 27.1 % Low 35.0-47.0 [facility] Comment on above: Performed By: #### L [id number] ####Detective Chief: PHILLY FRANCO ([phone])[facility])[address] [place] [address] Hemoglobin (Bld) [Mass/Vol] 9.6 g/dL Low 11.7-16.0 [facility] Comment on above: Performed By: #### L [id number] ####Detective Chief: PHILLY FRANCO ([phone])[facility] ([facility])[address] [place] [address] Hemoglobin (Bld) [Mass/Vol]O rdered By: Adrienne Bradshaw on 12-17-2024 Hematocrit (Bld) [Volume fraction] 27.1 % Low 35.0 - 47.0 % [facility] Interpretation and review of laboratory results Abnormal [facility] LACTIC ACID WITH REFLEXon Lactate [Moles/Vol] 1.6 mmol/L Normal 0.5-2.2 [facility] Comment on above: Performed By: #### L [id number] ####Detective Chief: PHILLY FRANCO ([phone])[facility] ([facility])[address] [place] [address] Lactate [Moles/Vol] 2.4 mmol/L High 0.5-2.2 [facility] Comment on above: Performed By: #### L [id number] ####Detective Chief: PHILLY FRANCO ([phone])[facility])[address] [place] [address] Laboratory - Chemistry and C hemistry - challengeon 12-17-2024 Glucose [Mass/Vol] 96 mg/dL 70 - 100 mg/dL [facility] Lactate [Moles/Vol] 1.6 mmol/L 0.5 - 2. 2 mmol/L [facility] Lactate [Moles/Vol] 2.4 mmol/L High 0.5 - 2. 2 mmol/L [facility] Laboratory - Coagulationon 0 12-17-2024 aPTT Coag (PPP) [Time] 30.5 s 20.0 - 30.5 s [facility] INR Coag (PPP) [Relative time] 1.2 {INR} High 0.9 - 1.1 [facility] PT Coag (Bld) [Time] 13 s High 9.0 - 12.0 s [facility] Laboratory - Drug toxicology on 12-17-2024 levETIRAcetam [Mass/Vol] 11.3 ug/mL [facility] Laboratory - Hematology and Cell countsOrdered By: Adrienne Bradshaw on 12-17-2024 Hemoglobin (Bld) [Mass/Vol] 9.6 g/dL Low 11.7 - 16.0 g/dL [facility] Laboratory - Microbiology an d Antimicrobial susceptibilityon 12-17-2024 Bacteria identified Cx Nom (Bld) No growth at 5 days [facility] No Panel Informationon 12-17 [facility] Interpretation and review of laboratory results Normal [facility] Blood Expiration Date S [facility] Blood Expiration Date S [facility] Crossmatch interpretation COMP [facility] Dispense Status Transfused [facility] Product Blood Type 5100 [facility] PRODUCT CODE [id number] [facility] PRODUCT CODE [id number] [facility] PRODUCT CODE [id number] [facility] ABO O [facility] Unit Number [id number] [facility] Unit Number [id number] [facility] Unit Number [id number] [facility] RH Positive [facility] Unit Volume 300 mL [facility] Interpretation and review of laboratory results Abnormal [facility] Interpretation and review of laboratory results Normal [facility] Interpretation and review of laboratory results Abnormal [facility] Nursing Noteon 12-17-2024 Nursing Note Normal [facility] Nursing Note Non Emergent rapid paged for stat labs per general surgery. Pt hard stick. Pt known to rapid. Labs sent. Hemoglobin 4.2. Talked with Dr. Leonardo about a possible line for patient due to the issues with getting access/blood. Normal [facility] Nursing Note Normal [facility] PROTIME AND APTTon aPTT Coag (Bld) [Time] 30.5 s Normal 20.0-30.5 [facility] Comment on above: Performed By: #### L [id number] ####Detective Chief: PHILLY FRANCO ([phone])[facility])[address] [place] [address] INR Coag (PPP) [Relative time] 1.2 {INR} High 0.9-1.1 [facility] Comment on above: Result Comment: Bruce mmended Anticoagulant Therapy: SEE BELOW----- INR of 2.0 - 3.0 : - Prophylaxis of Venous Thrombosis (high-risk surgery) - Treatment of Venous Thrombosis - Treatment of Pulmonary Embolism (Includes tissue heart valves, Acute Myocardial Infarction to prevent systemic embolism, Valvular Heart Disease, and Atrial Fibrillation)----- INR of 2.5 - 3.5 : - Mechanical Prosthetic Valves (high risk) - If oral anticoagulant therapy is used to prevent Myocardial Infarction Performed By: #### L [id number] ####Detective Chief: PHILLY FRANCO ([phone])[address] PT Coag (PPP) [Time] 13.0 s High 9.0-12.0 [facility] Comment on above: Performed By: #### L [id number] ####Detective Chief: PHILLY FRANCO ([phone])[facility])[address] [place] [address] Progress Noteon 12-17-2024 Progress Note Normal [facility] Progress Note Normal [facility] Progress Note Normal [facility] Progress Note Normal [facility] ALFREDO TRAUMA PANELon 025 APTEM A10 67 mm Normal 50-70 [facility] Comment on above: Performed By: #### L [id number] ####Detective Chief: PHILLY FRANCO ([phone])[facility] ([facility])[address] [place] [address] [place] APTEM A20 72 mm High 50-70 [facility] Comment on above: Performed By: #### L [id number] ####Detective Chief: PHILLY FRANCO ([phone])[facility] ([facility])[address] [place] [address] [place] APTEM ALPHA 82 DEGREES High 65-80 [facility] Comment on above: Performed By: #### L [id number] ####Detective Chief: PHILLY FRANCO ([phone])[facility] ([facility])[address] [place] [address] [place] APTEM CLOT FORMATION TIME 37 s Low 48-127 [facility] Comment on above: Performed By: #### L [id number] ####Detective Chief: PHILLY FRANCO ([id number])[facility] ([facility])[address] [place] [address] [place] APTEM CLOTTING TIME 78 s Normal 43-82 [facility] Comment on above: Performed By: #### L [id number] ####Detective Chief: PHILLY FRANCO ([phone])[facility] ([facility])[address] [place] [address] [place] APTEM MAXIMUM CLOT FIRMNESS 74 mm High 52-70 [facility] Comment on above: Performed By: #### L [id number] ####Detective Chief: PHILLY FRANCO ([phone])[facility] ([facility])[address] [place] [address] [place] EXTEM A10 67 mm Normal 50-70 [facility] Comment on above: Performed By: #### L [id number] ####Detective Chief: PHILLY FRANCO ([phone])[facility] ([facility])[address] [place] [address] [place] EXTEM A20 72 mm High 50-70 [facility] Comment on above: Performed By: #### L [id number] ####Detective Chief: PHILLY FRANCO ([phone])[facility] ([facility])[address] [place] [address] [place] EXTEM ALPHA 82 DEGREES High 65-80 [facility] Comment on above: Performed By: #### L [id number] ####Detective Chief: PHILLY FRANCO ([phone])[facility] ([facility])[address] [place] [address] [place] EXTEM CLOT FORMATION TIME 38 s Low 48-127 [facility] Comment on above: Performed By: #### L [id number] ####Detective Chief: PHILLY FRANCO ([phone])[facility] ([facility])[address] [place] [address] [place] EXTEM CLOTTING TIME 69 s Normal 43-82 [facility] Comment on above: Performed By: #### L [id number] ####Detective Chief: PHILLY FRANCO ([phone])[facility] ([facility])[address] [place] [address] EXTEM MAXIMUM CLOT FIRMNESS 73 mm High 52-70 [facility] Comment on above: Performed By: #### L [id number] ####Detective Chief: PHILLY FRANCO ([phone])[facility] ([facility])[address] [place] [address] FIBTEM A10 31 mm Normal [facility] Comment on above: Performed By: #### L [id number] ####Detective Chief: PHILLY FRANCO ([phone])[facility] ([facility])[address] [place] [address] [place] FIBTEM A20 30 mm Normal [facility] Comment on above: Performed By: #### L [id number] ####Detective Chief: PHILLY FRANCO ([phone])[facility] ([facility])[address] [place] [address] FIBTEM MAXIMUM CLOT FIRMNESS 31 mm High 7-24 [facility] Comment on above: Performed By: #### L [id number] ####Detective Chief: PHILLY FRANCO ([phone])[facility] ([facility])[address] [place] [address] CBC (HEMOGRAM)on 12-16-2024 Erythrocyte distribution width (RBC) [Ratio] 17.2 % High 11.5-15.0 [facility] Comment on above: Performed By: #### L [id number] ####Detective Chief: PHILLY FRANCO ([phone])[facility])[address] [place] [address] Hematocrit (Bld) [Volume fraction] 24.9 % Low 35.0-47.0 [facility] Comment on above: Performed By: #### L [id number] ####Detective Chief: PHILLY FRANCO ([phone])[facility])[address] [place] [address] Hemoglobin (Bld) [Mass/Vol] 8.2 g/dL Low 11.7-16.0 [facility] Comment on above: Performed By: #### L [id number] ####Detective Chief: PHILLY FRANCO ([phone])[facility] ([facility])[address] [place] [address] MCH (RBC) [Entitic mass] 29.7 pg Normal 26.0-34.0 [facility] Comment on above: Performed By: #### L [id number] ####Detective Chief: PHILLY FRANCO ([phone])[facility])[address] [place] [address] MCHC 32.9 % Normal 30.5-36.0 [facility] Comment on above: Performed By: #### L [id number] ####Detective Chief: PHILLY FRANCO ([phone])[facility])[address] [place] [address] MCV (RBC) [Entitic vol] 90.2 fL Normal 77.0-99.0 [facility] Comment on above: Performed By: #### L [id number] ####Detective Chief: PHILLY FRANCO ([phone])[facility])[address] [place] [address] Platelet mean volume (Bld) [Entitic vol] 10.6 fL Normal 9.0-12.7 [facility] Comment on above: Performed By: #### L [id number] ####Detective Chief: PHILLY FRANCO ([phone])[facility] ([facility])[address] [place] [address] Platelets (Bld) [#/Vol] 394 10*3/uL Normal 140-440 [facility] Comment on above: Performed By: #### L [id number] ####Detective Chief: PHILLY FRANCO ([phone])[facility] ([facility])[address] [place] [address] RBC (Bld) [#/Vol] 2.76 10*6/uL Low 3.80-5.20 [facility] Comment on above: Performed By: #### L [id number] ####Detective Chief: PHILLY FRANCO ([phone])[facility] ([facility])[address] [place] [address] WBC (Bld) [#/Vol] 10.3 10*3/uL Normal 3.6-10.7 [facility] Comment on above: Performed By: #### L [id number] ####Detective Chief: PHILLY FRANCO ([phone])[facility] ([facility])[address] [place] [address] CBC panel Auto (Bld)on 12-16 Erythrocyte distribution width (RBC) [Ratio] 17.2 % High 11.5 - 15.0 % [facility] Hematocrit (Bld) [Volume fraction] 24.9 % Low 35.0 - 47.0 % [facility] Hemoglobin (Bld) [Mass/Vol] 8.2 g/dL Low 11.7 - 16.0 g/dL [facility] Interpretation and review of laboratory results Abnormal [facility] MCH (RBC) [Entitic mass] 29.7 pg 26.0 - 34.0 pg [facility] MCHC (RBC) [Mass/Vol] 32.9 % 30.5 - 36.0 % [facility] MCV (RBC) [Entitic vol] 90.2 fL 77.0 - 99.0 fL [facility] Platelet mean volume (Bld) [Entitic vol] 10.6 fL 9.0 - 12.7 fL [facility] Platelets (Bld) [#/Vol] 394 10*3/uL 140 - 440 10*3/uL [facility] RBC (Bld) [#/Vol] 2.76 10*6/uL Low 3.80 - 5.2 0 10*6/uL [facility] WBC (Bld) [#/Vol] 10.3 10*3/uL 3.6 - 10.7 10*3/uL [facility] COMPREHENSIVE METABOLIC PANE Fam 12-16-2024 Albumin [Mass/Vol] 1.3 g/dL Low 3.4-4.8 [facility] Comment on above: Performed By: #### L [id number] ####Detective Chief: PHILLY FRANCO ([phone])[facility])[address] [place] [address] ALP [Catalytic activity/Vol] 139 U/L Normal 40-150 [facility] Comment on above: Performed By: #### L [id number] ####Detective Chief: PHILLY FRANOC ([phone])[address] ALT [Catalytic activity/Vol] 12 U/L Normal <30 [facility] Comment on above: Performed By: #### L [id number] ####Detective Chief: PHILLY FRANCO ([phone])[facility])[address] [place] [address] Anion gap [Moles/Vol] 5 mmol/L Normal 3-13 [facility] Comment on above: Performed By: #### L [id number] ####Detective Chief: PHILLY FRANCO ([phone])[address] AST [Catalytic activity/Vol] 45 U/L High <34 [facility] Comment on above: Performed By: #### L [id number] ####Detective Chief: PHILLY [id number])[facility])[address] [place] [address] Bilirubin [Mass/Vol] 0.5 mg/dL Normal <1.2 [facility] Comment on above: Performed By: #### L [id number] ####Detective Chief: PHILLY FRANCO ([phone])[facility])[address] [place] [address] Calcium [Mass/Vol] 7.4 mg/dL Low 8.8-10.0 [facility] Comment on above: Performed By: #### L [id number] ####Detective Chief: PHILLY FRANCO ([phone])[facility] ([facility])[address] [place] [address] Chloride [Moles/Vol] 98 mmol/L Normal 98-107 [facility] Comment on above: Performed By: #### L [id number] ####Detective Chief: PHILLY FRANCO ([phone])[facility] ([facility])[address] [place] [address] CO2 [Moles/Vol] 25 mmol/L Normal 23-31 [facility] Comment on above: Performed By: #### L [id number] ####Detective Chief: PHILLY FRANCO ([phone])[facility])[address] [place] [address] Creatinine [Mass/Vol] 2.66 mg/dL High 0.57-1.11 [facility] Comment on above: Performed By: #### L [id number] ####Detective Chief: PHILLY FRANCO ([phone])[facility])[address] [place] [address] GLOMERULAR FILTRATION RATE ML/MIN/1.73 SQ M.PREDICTED 18.3 mL/min/1.73m*2 Low >60.0 [facility] Comment on above: Result Comment: Calc ulation based on the Chronic Kidney Disease Epidemiology Collaboration (CKD-EPI) equation refit without adjustment for race Performed By: #### L [id number] ####Detective Chief: PHILLY FRANCO ([phone])[facility])[address] [place] [address] Glucose [Mass/Vol] 146 mg/dL High 82-115 [facility] Comment on above: Performed By: #### L [id number] ####Detective Chief: PHILLY FRANCO ([phone])[facility])[address] [place] [address] Potassium [Moles/Vol] 4.3 mmol/L Normal 3.5-5.1 [facility] Comment on above: Result Comment: [facility] potassium values may be up to 0.5 mmol/L lower than serum values. Performed By: #### L [id number] ####Detective Chief: PHILLY FRANCO ([phone])[facility] ([facility])[address] [place] [address] Protein [Mass/Vol] 5.9 g/dL Low 6.4-8.3 [facility] Comment on above: Performed By: #### L [id number] ####Detective Chief: PHILLY FRANCO ([phone])[facility])[address] [place] [address] Sodium [Moles/Vol] 128 mmol/L Low 136-145 [facility] Comment on above: Performed By: #### L [id number] ####Detective Chief: PHILLY FRANCO ([phone])[facility])[address] [place] [address] Urea nitrogen [Mass/Vol] 10 mg/dL Normal 9-23 [facility] Comment on above: Performed By: #### L [id number] ####Detective Chief: PHILLY FRANCO ([phone])[facility])[address] [place] [address] Albumin [Mass/Vol] 1.4 g/dL Low 3.4-4.8 [facility] Comment on above: Performed By: #### L [id number] ####Detective Chief: PHILLY FRANCO ([phone])[facility] [facility])[address] [place] [address] ALP [Catalytic activity/Vol] 147 U/L Normal 40-150 [facility] Comment on above: Performed By: #### L AB17 ####Detective Chief: PHILLY FRANCO ([phone])[facility] [place] [address] [place] ALT [Catalytic activity/Vol] 13 U/L Normal <30 [facility] Comment on above: Performed By: #### L AB17 ####Detective Chief: PHILLY FRANCO ([phone])[facility] ([facility])[address] [place] [address] Anion gap [Moles/Vol] 8 mmol/L Normal 3-13 [facility] Comment on above: Performed By: #### L AB17 ####Detective Chief: PHILLY FRANCO ([phone])[facility] ([facility])[address] [place] [address] AST [Catalytic activity/Vol] 52 U/L High <34 [facility] Comment on above: Performed By: #### L AB17 ####Detective Chief: PHILLY FRANCO ([phone])[facility] ([facility])[address] [place] [address] Bilirubin [Mass/Vol] 0.4 mg/dL Normal <1.2 [facility] Comment on above: Performed By: #### L AB17 ####Detective Chief: PHILLY FRANCO ([phone])[facility] ([facility])[address] [place] [address] Calcium [Mass/Vol] 7.5 mg/dL Low 8.8-10.0 [facility] Comment on above: Performed By: #### L AB17 ####Detective Chief: PHILLY FRANCO ([phone])[facility] ([facility])[address] [place] [address] [place] Chloride [Moles/Vol] 99 mmol/L Normal 98-107 [facility] Comment on above: Performed By: #### L AB17 ####Detective Chief: PHILLY FRANCO ([phone])[facility] ([facility])[address] [place] [address] [place] CO2 [Moles/Vol] 25 mmol/L Normal 23-31 [facility] Comment on above: Performed By: #### L AB17 ####Detective Chief: PHILLY FRANCO ([phone])[facility])[address] [place] [address] Creatinine [Mass/Vol] 1.99 mg/dL High 0.57-1.11 [facility] Comment on above: Performed By: #### L AB17 ####Detective Chief: PHILLY FRANCO ([phone])[facility])[address] [place] [address] GLOMERULAR FILTRATION RATE ML/MIN/1.73 SQ M.PREDICTED 25.9 mL/min/1.73m*2 Low >60.0 [facility] Comment on above: Result Comment: Calc ulation based on the Chronic Kidney Disease Epidemiology Collaboration (CKD-EPI) equation refit without adjustment for race Performed By: #### L AB17 ####Detective Chief: PHILLY FRANCO ([phone])[facility])[address] [place] [address] Glucose [Mass/Vol] 98 mg/dL Normal 82-115 [facility] Comment on above: Performed By: #### L AB17 ####Detective Chief: PHILLY FRANCO ([phone])[facility])[address] [place] [address] Potassium [Moles/Vol] 4.0 mmol/L Normal 3.5-5.1 [facility] Comment on above: Result Comment: [facility] potassium values may be up to 0.5 mmol/L lower than serum values. Performed By: #### L AB17 ####Detective Chief: PHILLY FRANCO ([phone])[facility] ([facility])[address] [place] [address] Protein [Mass/Vol] 6.4 g/dL Normal 6.4-8.3 [facility] Comment on above: Performed By: #### L AB17 ####Detective Chief: PHILLY FRANCO ([phone])[facility])[address] [place] [address] [place] Sodium [Moles/Vol] 132 mmol/L Low 136-145 [facility] Comment on above: Performed By: #### L AB17 ####Detective Chief: PHILLY FRANCO ([phone])[facility] ([facility])[address] [place] [address] Urea nitrogen [Mass/Vol] 7 mg/dL Low 9-23 [facility] Comment on above: Performed By: #### L AB17 ####Detective Chief: PHILLY FRANCO ([phone])[facility] ([facility])[address] [place] [address] CT ABDOMEN PELVIS WO IV CONT RASTon 12-16-2024 CT ABDOMEN PELVIS WO IV CONTRAST Normal [facility] CT Abdomen and Pelvis WO con traston 12-16-2024 [facility] Radiology Study observation (narrative) [facility] CT Abdomen and Pelvis WO con trastOrdered By: Balta Ruvalcaba on 12-16-2024 [facility] Work Phone: Comprehensive metabolic 1998 panelon 12-16-2024 Albumin [Mass/Vol] 1.3 g/dL Low 3.4 - 4.8 g/dL [facility] ALP [Catalytic activity/Vol] 139 U/L 40 - 150 U/L [facility] ALT [Catalytic activity/Vol] 12 [facility] Anion gap [Moles/Vol] 5 mmol/L 3 - 13 mmol/L [facility] AST [Catalytic activity/Vol] 45 U/L High NINF - 34 U/L [facility] Bilirubin [Mass/Vol] 0.5 mg/dL NINF - 1.2 mg/dL [facility] Calcium [Mass/Vol] 7.4 mg/dL Low 8.8 - 10. 0 mg/dL [facility] Chloride [Moles/Vol] 98 mmol/L 98 - 10 7 mmol/L [facility] CO2 [Moles/Vol] 25 mmol/L 23 - 31 mmol/L [facility] Creatinine [Mass/Vol] 2.66 mg/dL High 0.57 - 1.11 mg/dL [facility] GFR/1.73 sq M.predicted (S/P/Bld) [Vol rate/Area] 18.3 mL/min Low - PINF [facility] Glucose [Mass/Vol] 146 mg/dL High 82 - 115 mg/dL [facility] Interpretation and review of laboratory results Abnormal [facility] Potassium [Moles/Vol] 4.3 mmol/L 3.5 - 5.1 mmol/L [facility] Protein [Mass/Vol] 5.9 g/dL Low 6.4 - 8.3 g/dL [facility] Sodium [Moles/Vol] 128 mmol/L Low 136 - 145 mmol/L [facility] Urea nitrogen [Mass/Vol] 10 mg/dL 9 - 23 mg/dL [facility] Albumin [Mass/Vol] 1.4 g/dL Low 3.4 - 4.8 g/dL [facility] ALP [Catalytic activity/Vol] 147 U/L 40 - 150 U/L [facility] ALT [Catalytic activity/Vol] 13 U/L NINF - 30 U/L [facility] Anion gap [Moles/Vol] 8 mmol/L 3 - 13 mmol/L [facility] AST [Catalytic activity/Vol] 52 U/L High NINF - 34 U/L [facility] Bilirubin [Mass/Vol] 0.4 mg/dL NINF - 1.2 mg/dL [facility] Calcium [Mass/Vol] 7.5 mg/dL Low 8.8 - 10. 0 mg/dL [facility] Chloride [Moles/Vol] 99 mmol/L 98 - 10 7 mmol/L [facility] CO2 [Moles/Vol] 25 mmol/L 23 - 31 mmol/L [facility] Creatinine [Mass/Vol] 1.99 mg/dL High 0.57 - 1.11 mg/dL [facility] GFR/1.73 sq M.predicted (S/P/Bld) [Vol rate/Area] 25.9 mL/min Low - PINF [facility] Glucose [Mass/Vol] 98 mg/dL 82 - 115 mg/dL [facility] Interpretation and review of laboratory results Abnormal [facility] Potassium [Moles/Vol] 4 mmol/L 3.5 - 5.1 mmol/L [facility] Protein [Mass/Vol] 6.4 g/dL 6.4 - 8.3 g/dL [facility] Sodium [Moles/Vol] 132 mmol/L Low 136 - 145 mmol/L [facility] Urea nitrogen [Mass/Vol] 7 mg/dL Low 9 - 23 mg/dL [facility] Consulton 12-16-2024 Consult Normal [facility] LACTIC ACID WITH REFLEXon Lactate [Moles/Vol] 2.6 mmol/L High 0.5-2.2 [facility] Comment on above: Performed By: #### L [id number] ####Detective Chief: PHILLY FRANCO ([phone])[facility] [place] [address] Laboratory - Chemistry and C hemistry - challengeon 12-16-2024 Lactate [Moles/Vol] 2.6 mmol/L High 0.5 - 2. 2 mmol/L [facility] Laboratory - Drug toxicology on 12-16-2024 Vancomycin [Mass/Vol] 13.7 ug/mL [facility] No Panel Informationon 12-16 Interpretation and review of laboratory results Abnormal [facility] Nursing Noteon 12-16-2024 Nursing Note Normal [facility] Nursing Note Crushed patients med s and put in pudding. Patient only took some of meds, and refused the rest. Normal [facility] Progress Noteon 12-16-2024 Progress Note Normal [facility] Progress Note Normal [facility] Progress Note Normal [facility] VANCOMYCIN, RANDOMon 025 VANCOMYCIN 13.7 ug/mL Normal [facility] Comment on above: Result Comment: SHAWNE R COMMENTS:Toxicity is seen at concentrations >80-100 ug/mLTherapeutic (Peak) range: 20-40Therapeutic (Trough) range: 5-10 Performed By: #### L AB40 ####Detective Chief: PHILLY FRANCO ([id number])[facility] [place] [address] [id number] 12-15-2024 [id number] Normal [facility] [id number] 30 Day Readmission. Hospital Readmission Questionnaire not required due to patient readmitted from skilled or rehabilitation facility. [facility] CBC (HEMOGRAM)on 12-15-2024 Erythrocyte distribution width (RBC) [Ratio] 17.2 % High 11.5-15.0 [facility] Comment on above: Performed By: #### L AB294 ####Detective Chief: PHILLY FRANCO ([phone])[facility])[address] [place] [address] Hematocrit (Bld) [Volume fraction] 25.6 % Low 35.0-47.0 [facility] Comment on above: Performed By: #### L AB294 ####Detective Chief: PHILLY FRANCO ([phone])[facility])[address] [place] [address] Hemoglobin (Bld) [Mass/Vol] 8.3 g/dL Low 11.7-16.0 [facility] Comment on above: Performed By: #### L AB294 ####Detective Chief: PHILLY FRANCO ([phone])[facility] ([facility])[address] [place] [address] MCH (RBC) [Entitic mass] 30.0 pg Normal 26.0-34.0 [facility] Comment on above: Performed By: #### L AB294 ####Detective Chief: PHILLY FRANCO ([phone])[facility])[address] [place] [address] MCHC 32.4 % Normal 30.5-36.0 [facility] Comment on above: Performed By: #### L AB294 ####Detective Chief: PHILLY FRANCO ([phone])[facility])[address] [place] [address] MCV (RBC) [Entitic vol] 92.4 fL Normal 77.0-99.0 S [facility] Comment on above: Performed By: #### L AB294 ####Detective Chief: PHILLY FRANCO ([phone])[facility])[address] [place] [address] Platelet mean volume (Bld) [Entitic vol] 10.5 fL Normal 9.0-12.7 [facility] Comment on above: Performed By: #### L AB294 ####Detective Chief: PHILLY FRANCO ([phone])[facility])[address] [place] [address] Platelets (Bld) [#/Vol] 363 10*3/uL Normal 140-440 [facility] Comment on above: Performed By: #### L AB294 ####Detective Chief: PHILLY FRANCO ([phone])[facility] ([facility])[address] [place] [address] RBC (Bld) [#/Vol] 2.77 10*6/uL Low 3.80-5.20 [facility] Comment on above: Performed By: #### L AB294 ####Detective Chief: PHILLY FRANCO ([phone])[facility])[address] [place] [address] WBC (Bld) [#/Vol] 12.0 10*3/uL High 3.6-10.7 [facility] Comment on above: Performed By: #### L AB294 ####Detective Chief: PHILLY FRANCO ([phone])[facility])[address] [place] [address] CBC panel Auto (Bld)on 12-15 Erythrocyte distribution width (RBC) [Ratio] 17.2 % High 11.5 - 15.0 % [facility] Hematocrit (Bld) [Volume fraction] 25.6 % Low 35.0 - 47.0 % [facility] Hemoglobin (Bld) [Mass/Vol] 8.3 g/dL Low 11.7 - 16.0 g/dL [facility] Interpretation and review of laboratory results Abnormal [facility] MCH (RBC) [Entitic mass] 30 pg 26.0 - 34.0 pg [facility] MCHC (RBC) [Mass/Vol] 32.4 % 30.5 - 36.0 % [facility] MCV (RBC) [Entitic vol] 92.4 fL 77.0 - 99.0 fL [facility] Platelet mean volume (Bld) [Entitic vol] 10.5 fL 9.0 - 12.7 fL [facility] Platelets (Bld) [#/Vol] 363 10*3/uL 140 - 440 10*3/uL [facility] RBC (Bld) [#/Vol] 2.77 10*6/uL Low 3.80 - 5.2 0 10*6/uL [facility] WBC (Bld) [#/Vol] 12 10*3/uL High 3.6 - 10.7 10*3/uL [facility] COMPREHENSIVE METABOLIC PANE Fam 12-15-2024 Albumin [Mass/Vol] 1.5 g/dL Low 3.4-4.8 [facility] Comment on above: Performed By: #### L AB17 ####Detective Chief: PHILLY FRANCO ([phone])[facility] ([facility])[address] [place] [address] ALP [Catalytic activity/Vol] 146 U/L Normal 40-150 [facility] Comment on above: Performed By: #### L AB17 ####Detective Chief: PHILLY FRANCO ([phone])[facility] ([facility])[address] [place] [address] ALT [Catalytic activity/Vol] 14 U/L Normal <30 [facility] Comment on above: Performed By: #### L AB17 ####Detective Chief: PHILLY FRANCO ([phone])[facility] ([facility])[address] [place] [address] Anion gap [Moles/Vol] 9 mmol/L Normal 3-13 [facility] Comment on above: Performed By: #### L AB17 ####Detective Chief: PHILLY FRANCO ([phone])[facility] ([facility])[address] [place] [address] AST [Catalytic activity/Vol] 53 U/L High <34 [facility] Comment on above: Performed By: #### L AB17 ####Detective Chief: PHILLY FRANCO ([phone])[facility] ([facility])[address] [place] [address] Bilirubin [Mass/Vol] 0.4 mg/dL Normal <1.2 [facility] Comment on above: Performed By: #### L AB17 ####Detective Chief: PHILLY FRANCO ([phone])[facility] ([facility])[address] [place] [address] Calcium [Mass/Vol] 7.8 mg/dL Low 8.8-10.0 [facility] Comment on above: Performed By: #### L AB17 ####Detective Chief: PHILLY FRANCO ([phone])[facility] ([facility])[address] [place] [address] Chloride [Moles/Vol] 101 mmol/L Normal 98-107 [facility] Comment on above: Performed By: #### L AB17 ####Detective Chief: PHILLY FRANCO ([phone])[facility] ([facility])[address] [place] [address] CO2 [Moles/Vol] 24 mmol/L Normal 23-31 [facility] Comment on above: Performed By: #### L AB17 ####Detective Chief: PHILLY FRANCO ([phone])[facility] ([facility])[address] [place] [address] Creatinine [Mass/Vol] 2.80 mg/dL High 0.57-1.11 [facility] Comment on above: Performed By: #### L AB17 ####Detective Chief: PHILLY FRANCO ([phone])[facility] ([facility])[address] [place] [address] [place] GLOMERULAR FILTRATION RATE ML/MIN/1.73 SQ M.PREDICTED 17.2 mL/min/1.73m*2 Low >60.0 [facility] Comment on above: Result Comment: Calc ulation based on the Chronic Kidney Disease Epidemiology Collaboration (CKD-EPI) equation refit without adjustment for race Performed By: #### L AB17 ####Detective Chief: PHILLY FRANCO ([phone])[facility] ([facility])[address] [place] [address] Glucose [Mass/Vol] 65 mg/dL Low 82-115 [facility] Comment on above: Performed By: #### L AB17 ####Detective Chief: PHILLY FRANCO ([phone])[facility])[address] [place] [address] Potassium [Moles/Vol] 4.4 mmol/L Normal 3.5-5.1 [facility] Comment on above: Result Comment: [facility] potassium values may be up to 0.5 mmol/L lower than serum values. Performed By: #### L AB17 ####Detective Chief: PHILLY FRANCO ([phone])[facility] ([facility])[address] [place] [address] Protein [Mass/Vol] 6.5 g/dL Normal 6.4-8.3 [facility] Comment on above: Performed By: #### L AB17 ####Detective Chief: PHILLY FRANCO ([phone])[facility])[address] [place] [address] Sodium [Moles/Vol] 134 mmol/L Low 136-145 [facility] Comment on above: Performed By: #### L AB17 ####Detective Chief: PHILLY FRANCO ([phone])[facility])[address] [place] [address] Urea nitrogen [Mass/Vol] 12 mg/dL Normal 9-23 [facility] Comment on above: Performed By: #### L AB17 ####Detective Chief: PHILLY FRANCO ([phone])[facility])[address] [place] [address] Comprehensive metabolic 1998 panelOrdered By: Feliberto Avina on 12-15-2024 Albumin [Mass/Vol] 1.5 g/dL Low 3.4 - 4.8 g/dL [facility] ALP [Catalytic activity/Vol] 146 U/L 40 - 150 U/L [facility] ALT [Catalytic activity/Vol] 14 U/L NINF - 30 U/L [facility] Anion gap [Moles/Vol] 9 mmol/L 3 - 13 mmol/L [facility] AST [Catalytic activity/Vol] 53 U/L High NINF - 34 U/L [facility] Bilirubin [Mass/Vol] 0.4 mg/dL NINF - 1.2 mg/dL [facility] Calcium [Mass/Vol] 7.8 mg/dL Low 8.8 - 10. 0 mg/dL [facility] Chloride [Moles/Vol] 101 mmol/L 98 - 10 7 mmol/L [facility] CO2 [Moles/Vol] 24 mmol/L 23 - 31 mmol/L [facility] Creatinine [Mass/Vol] 2.8 mg/dL High 0.57 - 1.11 mg/dL [facility] GFR/1.73 sq M.predicted (S/P/Bld) [Vol rate/Area] 17.2 mL/min Low - PINF [facility] Glucose [Mass/Vol] 65 mg/dL Low 82 - 115 mg/dL [facility] Interpretation and review of laboratory results Abnormal [facility] Potassium [Moles/Vol] 4.4 mmol/L 3.5 - 5.1 mmol/L [facility] Protein [Mass/Vol] 6.5 g/dL 6.4 - 8.3 g/dL [facility] Sodium [Moles/Vol] 134 mmol/L Low 136 - 145 mmol/L [facility] Urea nitrogen [Mass/Vol] 12 mg/dL 9 - 23 mg/dL [facility] LEVETIRACETAM LEVEL (BKR QUE [facility])on 12-15-2024 QUEST LEVETIRACETAM, IMMUNOASSAY 11.3 mcg/mL Normal 6.0-46.0 [facility] Comment on above: Result Comment: Briv aracetam (Briviact(R), Rikelta(R)) exhibitssignificant cross-reactivity in the Levetiracetam(Keppra(R), Spritam(R)) immunoassay. If Brivaracetamhas been prescribed, order test code [id number] by LCMSMS.Test Performed by Contracts and GrantsHalima,XMLAW [facility],[address] [place] [id number] Orourke M.D., Ph.D., Director of [phone], CLIA [id number] Performed By: #### L [id number] ####[employer] ([employer])[address] [place] [address] [facility] Laboratory - Chemistry and C hemistry - challengeon 12-15-2024 Glucose [Mass/Vol] 104 mg/dL High 70 - 100 mg/dL [facility] Glucose [Mass/Vol] 69 mg/dL Low 70 - 100 mg/dL [facility] Laboratory - Drug toxicology on 12-15-2024 Vancomycin [Mass/Vol] 19 ug/mL [facility] No Panel Informationon 12-15 Interpretation and review of laboratory results Abnormal [facility] [place] [facility] Interpretation and review of laboratory results Abnormal [facility] Nursing Noteon 12-15-2024 Nursing Note Normal [facility] Progress Noteon 12-15-2024 Progress Note Normal [facility] Progress Note Normal [facility] Progress Note Normal [facility] Progress Note Normal [facility] Progress Note Normal [facility] VANCOMYCIN, RANDOMon 025 VANCOMYCIN 19.0 ug/mL Normal [facility] Comment on above: Result Comment: GUERO Amanda COMMENTS:Obtain a vancomycin level 4 hours after the END of hemodialysis.Toxicity is seen at concentrations >80-100 ug/mLTherapeutic (Peak) range: 20-40Therapeutic (Trough) range: 5-10 Performed By: #### L AB40 ####Detective Chief: PHILLY FRANCO ([phone])[facility] ([facility])[address] [place] [address] [id number] 12-14-2024 [id number] Normal [facility] AMMONIAon 12-14-2024 Ammonia (P) [Moles/Vol] 26 umol/L Normal 18-72 S [facility] Comment on above: Performed By: #### L AB47 ####Detective Chief: PHILLY FRANCO ([phone])[facility] ([facility])[address] [place] [address] BLOOD TYPE AND SCREEN GELon 12-14-2024 ABO GROUPING O Normal [facility] Comment on above: Performed By: #### L AB276 ####Detective Chief: PHILLY FRANCO ([phone])[facility] ([facility])[address] [place] [address] RH TYPE IN BLOOD Positive Normal [facility] Comment on above: Performed By: #### L AB276 ####Detective Chief: PHILLY FRANCO ([phone])[facility] ([facility])[address] [place] [address] Blood type and Crossmatch pa kojo (Bld)on 12-14-2024 ABO group Nom (Bld) O [facility] Blood group antibody screen GEL Ql Negative [facility] D Ag Ql (RBC) Positive [facility] CBC (HEMOGRAM)on 12-14-2024 HEMATOCRIT Normal 35.0-47.0 [facility] Comment on above: Result Comment: Disr egard previously reported results.Corrected result: Previously reported as 20.8 % (reference range: 35.0-47.0 %) on 12/14/2024 at 0147 EDT. Performed By: #### L AB294 ####Detective Chief: PHILLY FRANCO ([phone])[address] HEMOGLOBIN Normal 11.7-16.0 [facility] Comment on above: Result Comment: Disr egard previously reported results.Corrected result: Previously reported as 6.5 g/dL (reference range: 11.7-16.0 g/dL) on 12/14/2024 at 0147 EDT. Performed By: #### L AB294 ####Detective Chief: PHILLY FRANCO ([phone])[facility] ([facility])[address] [place] [address] MCH Normal 26.0-34.0 [facility] Comment on above: Result Comment: Disr egard previously reported results.Corrected result: Previously reported as 29.4 pg (reference range: 26.0-34.0 pg) on 12/14/2024 at 0147 EDT. Performed By: #### L AB294 ####Detective Chief: PHILLY FRANCO ([phone])[facility] ([facility])[address] [place] [address] MCHC Normal 30.5-36.0 [facility] Comment on above: Result Comment: Disr egard previously reported results.Corrected result: Previously reported as 31.3 % (reference range: 30.5-36.0 %) on 12/14/2024 at 0147 EDT. Performed By: #### L AB294 ####Detective Chief: PHILLY FRANCO ([phone])[address] MCV Normal 77.0-99.0 [facility] Comment on above: Result Comment: Disr egard previously reported results.Corrected result: Previously reported as 94.1 fL (reference range: 77.0-99.0 fL) on 12/14/2024 at 0147 EDT. Performed By: #### L AB294 ####Detective Chief: PHILLY FRANCO ([phone])[address] MPV Normal 9.0-12.7 [facility] Comment on above: Result Comment: Disr egard previously reported results.Corrected result: Previously reported as 10.6 fL (reference range: 9.0-12.7 fL) on 12/14/2024 at 0147 EDT.ORDER COMMENTS:Disregard previously reported results.Specimen contaminated with iv fluid Performed By: #### L AB294 ####Detective Chief: PHILLY FRANCO ([phone])[address] PLATELET COUNT Normal 140-440 [facility] Comment on above: Result Comment: Disr egard previously reported results.Corrected result: Previously reported as 274 10*3/uL (reference range: 140-440 10*3/uL) on 12/14/2024 at 0147 EDT. Performed By: #### L AB294 ####Detective Chief: PHILLY FRANCO ([phone])[facility])[address] [place] [address] RBC Normal 3.80-5.20 [facility] Comment on above: Result Comment: Disr egard previously reported results.Corrected result: Previously reported as 2.21 10*6/uL (reference range: 3.80-5.20 10*6/uL) on 12/14/2024 at 0147 EDT. Performed By: #### L [id number] ####Detective Chief: PHILLY FRANCO ([phone])[facility])[address] [place] [address] RDW Normal 11.5-15.0 [facility] Comment on above: Result Comment: Brigid hernandez previously reported results.Corrected result: Previously reported as 17.2 % (reference range: 11.5-15.0 %) on 12/14/2024 at 0147 EDT. Performed By: #### L [id number] ####Detective Chief: PHILLY FRANCO ([phone])[facility] ([facility])[address] [place] [address] WBC Normal 3.6-10.7 [facility] Comment on above: Result Comment: Brigid hernandez previously reported results.Corrected result: Previously reported as 11.9 10*3/uL (reference range: 3.6-10.7 10*3/uL) on 12/14/2024 at 0147 EDT. Performed By: #### L [id number] ####Detective Chief: PHILLY FRANCO ([phone])[facility] ([facility])[address] [place] [address] CBC W Auto Differential pane l (Bld)Ordered By: Alison Jain on 12-14-2024 Basophils (Bld) [#/Vol] 0.1 10*3/uL 0.0 - 0.2 10*3/uL [facility] Basophils/100 WBC (Bld) 0.8 % 0.0 - 2.0 % [facility] Eosinophils (Bld) [#/Vol] 0.4 10*3/uL 0.0 - 0.5 10*3/uL [facility] Eosinophils/100 WBC (Bld) 3.3 % 0.0 - 6.0 % [facility] Erythrocyte distribution width (RBC) [Ratio] 17.2 % High 11.5 - 15.0 % [facility] Hematocrit (Bld) [Volume fraction] 23.6 % Low 35.0 - 47.0 % [facility] Hemoglobin (Bld) [Mass/Vol] 7.5 g/dL Low 11.7 - 16.0 g/dL [facility] Immature granulocytes (Bld) [#/Vol] 0.1 10*3/uL High NINF - 0.1 10*3/uL [facility] Immature granulocytes/100 WBC (Bld) 0.4 % 0.0 - 2.0 % [facility] Interpretation and review of laboratory results Abnormal [facility] Lymphocytes (Bld) [#/Vol] 1.2 10*3/uL 1.0 - 4.3 10*3/uL [facility] Lymphocytes/100 WBC (Bld) 9 % Low 15.0 - 45.0 % [facility] MCH (RBC) [Entitic mass] 29.3 pg 26.0 - 34.0 pg [facility] MCHC (RBC) [Mass/Vol] 31.8 % 30.5 - 36.0 % [facility] MCV (RBC) [Entitic vol] 92.2 fL 77.0 - 99.0 fL [facility] Monocytes (Bld) [#/Vol] 1 10*3/uL High 0.0 - 0.9 10*3/uL [facility] Monocytes/100 WBC (Bld) 7.6 % 5.0 - 13.0 % [facility] Neutrophils (Bld) [#/Vol] 10.4 10*3/uL High 1.8 - 7.5 10*3/uL [facility] Neutrophils/100 WBC (Bld) 78.9 % 38.0 - 82.0 % [facility] Nucleated RBC/100 WBC (Bld) [Ratio] 0 % [facility] Platelet mean volume (Bld) [Entitic vol] 10.6 fL 9.0 - 12.7 fL [facility] Platelets (Bld) [#/Vol] 305 10*3/uL 140 - 440 10*3/uL [facility] RBC (Bld) [#/Vol] 2.56 10*6/uL Low 3.80 - 5.2 0 10*6/uL [facility] WBC (Bld) [#/Vol] 13.1 10*3/uL High 3.6 - 10.7 10*3/uL [facility] CBC WITH AUTO DIFFERENTIALon 12-14-2024 Basophils (Bld) [#/Vol] 0.1 10*3/uL Normal 0.0-0.2 [facility] Comment on above: Performed By: #### L [id number] ####Detective Chief: PHILLY FRANCO ([phone])[facility])[address] [place] [address] Basophils/100 WBC (Bld) 0.8 % Normal 0.0-2.0 [facility] Comment on above: Performed By: #### L [id number] ####Detective Chief: PHILLY FRANCO ([phone])[facility])[address] [place] [address] Eosinophils (Bld) [#/Vol] 0.4 10*3/uL Normal 0.0-0.5 [facility] Comment on above: Performed By: #### L [id number] ####Detective Chief: PHILLY FRANCO ([phone])[facility])[address] [place] [address] Eosinophils/100 WBC (Bld) 3.3 % Normal 0.0-6.0 [facility] Comment on above: Performed By: #### L [id number] ####Detective Chief: PHILLY FRANCO ([phone])[facility])[address] [place] [address] Erythrocyte distribution width (RBC) [Ratio] 17.2 % High 11.5-15.0 [facility] Comment on above: Performed By: #### L [id number] ####Detective Chief: PHILLY FRANCO ([phone])[facility])[address] [place] [address] Hematocrit (Bld) [Volume fraction] 23.6 % Low 35.0-47.0 [facility] Comment on above: Performed By: #### L [id number] ####Detective Chief: PHILLY FRANCO ([phone])[facility])[address] [place] [address] Hemoglobin (Bld) [Mass/Vol] 7.5 g/dL Low 11.7-16.0 [facility] Comment on above: Performed By: #### L [id number] ####Detective Chief: PHILLY FRANCO ([phone])[facility])[address] [place] [address] IMMATURE GRANS % 0.4 % Normal 0.0-2.0 [facility] Comment on above: Performed By: #### L [id number] ####Detective Chief: PHILLY FRANCO ([phone])[facility])[address] [place] [address] IMMATURE GRANS ABSOLUTE 0.1 10*3/uL High <0.1 [facility] Comment on above: Performed By: #### L [id number] ####Detective Chief: PHILLY FRANCO ([phone])[address] Lymphocytes (Bld) [#/Vol] 1.2 10*3/uL Normal 1.0-4.3 [facility] Comment on above: Performed By: #### L [id number] ####Detective Chief: PHILLY FRANCO ([phone])[address] Lymphocytes/100 WBC (Bld) 9.0 % Low 15.0-45.0 [facility] Comment on above: Performed By: #### L [id number] ####Detective Chief: PHILLY FRANCO ([phone])[address] MCH (RBC) [Entitic mass] 29.3 pg Normal 26.0-34.0 [facility] Comment on above: Performed By: #### L [id number] ####Detective Chief: PHILLY FRANCO ([phone])[address] MCHC 31.8 % Normal 30.5-36.0 [facility] Comment on above: Performed By: #### L [id number] ####Detective Chief: PHILLY FRANCO ([phone])[facility] ([facility])[address] [place] [address] MCV (RBC) [Entitic vol] 92.2 fL Normal 77.0-99.0 [facility] Comment on above: Performed By: #### L [id number] ####Detective Chief: PHILLY FRANCO ([phone])[facility])[address] [place] [address] Monocytes (Bld) [#/Vol] 1.0 10*3/uL High 0.0-0.9 [facility] Comment on above: Performed By: #### L [id number] ####Detective Chief: PHILLY FRANCO ([phone])[facility])[address] [place] [address] Monocytes/100 WBC (Bld) 7.6 % Normal 5.0-13.0 [facility] Comment on above: Performed By: #### L [id number] ####Detective Chief: PHILLY FRANCO ([phone])[facility] ([facility])[address] [place] [address] NEUTROPHILS ABSOLUTE 10.4 10*3/uL High 1.8-7.5 [facility] Comment on above: Performed By: #### L [id number] ####Detective Chief: PHILLY FRANCO ([phone])[facility])[address] [place] [address] Neutrophils/100 WBC (Bld) 78.9 % Normal 38.0-82.0 [facility] Comment on above: Performed By: #### L [id number] ####Detective Chief: PHILLY FRANCO ([phone])[facility])[address] [place] [address] NRBC 0.0 /100 WBCs Normal 0.0-2.0 [facility] Comment on above: Performed By: #### L [id number] ####Detective Chief: PHILLY FRANCO ([phone])[facility])[address] [place] [address] [place] Platelet mean volume (Bld) [Entitic vol] 10.6 fL Normal 9.0-12.7 [facility] Comment on above: Performed By: #### L [id number] ####Detective Chief: PHILLY FRANCO ([phone])[facility] ([facility])[address] [place] [address] [place] Platelets (Bld) [#/Vol] 305 10*3/uL Normal 140-440 [facility] Comment on above: Performed By: #### L [id number] ####Detective Chief: PHILLY FRANCO ([phone])[facility] ([facility])[address] [place] [address] RBC (Bld) [#/Vol] 2.56 10*6/uL Low 3.80-5.20 [facility] Comment on above: Performed By: #### L [id number] ####Detective Chief: PHILLY FRANCO ([phone])[facility] ([facility])[address] [place] [address] WBC (Bld) [#/Vol] 13.1 10*3/uL High 3.6-10.7 [facility] Comment on above: Performed By: #### L [id number] ####Detective Chief: PHILLY FRANCO ([phone])[facility] ([facility])[address] [place] [address] CBC panel Auto (Bld)Ordered By: Beatriz Morales on 12-14-2024 Erythrocyte distribution width (RBC) [Ratio] [facility] Hematocrit (Bld) [Volume fraction] [facility] Hemoglobin (Bld) [Mass/Vol] [facility] MCH (RBC) [Entitic mass] [facility] MCHC (RBC) [Mass/Vol] [facility] MCV (RBC) [Entitic vol] [facility] Platelet mean volume (Bld) [Entitic vol] [facility] Platelets (Bld) [#/Vol] [facility] RBC (Bld) [#/Vol] [facility] WBC (Bld) [#/Vol] [facility] COMPREHENSIVE METABOLIC PANE Fam 12-14-2024 Albumin [Mass/Vol] 1.4 g/dL Low 3.4-4.8 [facility] Comment on above: Performed By: #### L ABAntonio, LAB17 ####Detective Chief: PHILLY FRANCO ([phone])[facility] ([facility])[address] [place] [address] ALP [Catalytic activity/Vol] 131 U/L Normal 40-150 [facility] Comment on above: Performed By: #### L ABAntonio, LAB17 ####Detective Chief: PHILLY FRANCO ([phone])[facility] ([facility])[address] [place] [address] ALT [Catalytic activity/Vol] 13 U/L Normal <30 [facility] Comment on above: Performed By: #### L ABAntonio, LAB17 ####Detective Chief: PHILLY FRANCO ([phone])[facility] ([facility])[address] [place] [address] Anion gap [Moles/Vol] 9 mmol/L Normal 3-13 [facility] Comment on above: Performed By: #### L ABAntonio, LAB17 ####Detective Chief: PHILLY FRANCO ([phone])[facility] ([facility])[address] [place] [address] AST [Catalytic activity/Vol] 50 U/L High <34 [facility] Comment on above: Performed By: #### L ABAntonio, LAB17 ####Detective Chief: PHILLY FRANCO ([phone])[facility])[address] [place] [address] Bilirubin [Mass/Vol] 0.4 mg/dL Normal <1.2 [facility] Comment on above: Performed By: #### L ABAntonio, LAB17 ####Detective Chief: PHILLY FRANCO ([phone])[facility])[address] [place] [address] Calcium [Mass/Vol] 7.5 mg/dL Low 8.8-10.0 [facility] Comment on above: Performed By: #### L AB113, LAB17 ####Detective Chief: PHILLY FRANCO ([phone])[facility])[address] [place] [address] Chloride [Moles/Vol] 96 mmol/L Low 98-107 [facility] Comment on above: Performed By: #### L AB113, LAB17 ####Detective Chief: PHILLY FRANCO ([phone])[facility])[address] [place] [address] CO2 [Moles/Vol] 25 mmol/L Normal 23-31 [facility] Comment on above: Performed By: #### L AB113, LAB17 ####Detective Chief: PHILLY FRANCO ([phone])[facility])[address] [place] [address] Creatinine [Mass/Vol] 4.37 mg/dL High 0.57-1.11 [facility] Comment on above: Performed By: #### L ABAntonio, LAB17 ####Detective Chief: PHILLY FRANCO ([phone])[facility])[address] [place] [address] GLOMERULAR FILTRATION RATE ML/MIN/1.73 SQ M.PREDICTED 10.1 mL/min/1.73m*2 Low >60.0 [facility] Comment on above: Result Comment: Calc ulation based on the Chronic Kidney Disease Epidemiology Collaboration (CKD-EPI) equation refit without adjustment for race Performed By: #### L ABAntonio, LAB17 ####Detective Chief: PHILLY FRANCO ([phone])[facility])[address] [place] [address] Glucose [Mass/Vol] 95 mg/dL Normal 82-115 [facility] Comment on above: Performed By: #### L AB113, LAB17 ####Detective Chief: PHILLY FRANCO ([phone])[facility])[address] [place] [address] Potassium [Moles/Vol] 3.7 mmol/L Normal 3.5-5.1 [facility] Comment on above: Result Comment: [facility] potassium values may be up to 0.5 mmol/L lower than serum values. Performed By: #### L AB113, LAB17 ####Detective Chief: PHILLY FRANCO ([phone])[facility] ([facility])[address] [place] [address] Protein [Mass/Vol] 6.2 g/dL Low 6.4-8.3 [facility] Comment on above: Performed By: #### L AB113, LAB17 ####Detective Chief: PHILLY FRANCO ([phone])[facility] ([facility])[address] [place] [address] Sodium [Moles/Vol] 130 mmol/L Low 136-145 [facility] Comment on above: Performed By: #### L 113, LAB17 ####Detective Chief: PHILLY FRANCO ([phone])[facility] ([facility])[address] [place] [address] Urea nitrogen [Mass/Vol] 26 mg/dL High 9-23 [facility] Comment on above: Performed By: #### L AB113, LAB17 ####Detective Chief: PHILLY FRANCO ([phone])[facility] ([facility])[address] [place] [address] Comprehensive metabolic 1998 panelon 12-14-2024 Albumin [Mass/Vol] 1.4 g/dL Low 3.4 - 4.8 g/dL [facility] ALP [Catalytic activity/Vol] 131 U/L 40 - 150 U/L [facility] ALT [Catalytic activity/Vol] 13 U/L NINF - 30 U/L [facility] Anion gap [Moles/Vol] 9 mmol/L 3 - 13 mmol/L [facility] AST [Catalytic activity/Vol] 50 U/L High NINF - 34 U/L [facility] Bilirubin [Mass/Vol] 0.4 mg/dL NINF - 1.2 mg/dL [facility] Calcium [Mass/Vol] 7.5 mg/dL Low 8.8 - 10. 0 mg/dL [facility] Chloride [Moles/Vol] 96 mmol/L Low 98 - 10 7 mmol/L [facility] CO2 [Moles/Vol] 25 mmol/L 23 - 31 mmol/L [facility] Creatinine [Mass/Vol] 4.37 mg/dL High 0.57 - 1.11 mg/dL [facility] GFR/1.73 sq M.predicted (S/P/Bld) [Vol rate/Area] 10.1 mL/min Low - PINF [facility] Glucose [Mass/Vol] 95 mg/dL 82 - 115 mg/dL [facility] Interpretation and review of laboratory results Abnormal [facility] Potassium [Moles/Vol] 3.7 mmol/L 3.5 - 5.1 mmol/L [facility] Protein [Mass/Vol] 6.2 g/dL Low 6.4 - 8.3 g/dL [facility] Sodium [Moles/Vol] 130 mmol/L Low 136 - 145 mmol/L [facility] Urea nitrogen [Mass/Vol] 26 mg/dL High 9 - 23 mg/dL [facility] Consulton 12-14-2024 Consult Normal [facility] - Chemistry and C hemistry - challengeon 12-14-2024 Glucose [Mass/Vol] 117 mg/dL High 70 - 100 mg/dL [facility] Glucose [Mass/Vol] 96 mg/dL 70 - 100 mg/dL [facility] Glucose [Mass/Vol] 104 mg/dL High 70 - 100 mg/dL [facility] Ammonia (P) [Moles/Vol] 26 umol/L 18 - 72 umol/L [facility] Glucose [Mass/Vol] 98 mg/dL 70 - 100 mg/dL [facility] No Panel Informationon 12-14 Interpretation and review of laboratory results Abnormal [facility] Interpretation and review of laboratory results Normal [facility] Interpretation and review of laboratory results Abnormal [facility] Interpretation and review of laboratory results Normal [facility] Interpretation and review of laboratory results Normal [facility] Nursing Noteon 12-14-2024 Nursing Note Normal [facility] PHOSPHORUSon 12-14-2024 Phosphate [Mass/Vol] 2.3 mg/dL Normal 2.3-4.7 [facility] Comment on above: Performed By: #### L AB113, LAB17 ####Detective Chief: PHILLY FRANCO ([phone])[facility] ([facility])[address] [place] [address] [place] Phosphate [Moles/Vol]on 12-04 Interpretation and review of laboratory results Normal [facility] Phosphate [Mass/Vol] 2.3 mg/dL 2.3 - 4 .7 mg/dL [facility] Progress Noteon 12-14-2024 Progress Note Normal [facility] Progress Note Normal [facility] Progress Note Normal [facility] Progress Note Normal [facility] Progress Note Normal [facility] Progress Note Normal [facility] Progress Note Normal [facility] [id number] 12-13-2024 [id number] Normal [facility] BASIC METABOLIC PANELon 12-04 Anion gap [Moles/Vol] 9 mmol/L Normal 3-13 [facility] Comment on above: Performed By: #### L AB67, LAB15, [id number], [id number] ####Detective Chief: PHILLY FRANCO ([phone])[facility] ([facility])[address] [place] [address] [place] Calcium [Mass/Vol] 7.8 mg/dL Low 8.8-10.0 [facility] Comment on above: Performed By: #### L AB67, LAB15, [id number], [id number] ####Detective Chief: PHILLY FRANCO ([phone])[facility] ([facility])[address] [place] [address] [place] Chloride [Moles/Vol] 100 mmol/L Normal 98-107 [facility] Comment on above: Performed By: #### L AB67, LAB15, [id number], [id number] ####Detective Chief: PHILLY FRANCO ([phone])[facility] ([facility])[address] [place] [address] [place] CO2 [Moles/Vol] 25 mmol/L Normal 23-31 [facility] Comment on above: Performed By: #### L AB67, LAB15, [id number], [id number] ####Detective Chief: PHILLY FRANCO ([phone])[facility] ([facility])[address] [place] [address] [place] Creatinine [Mass/Vol] 3.82 mg/dL High 0.57-1.11 [facility] Comment on above: Performed By: #### L AB67, LAB15, [id number], [id number] ####Detective Chief: PHILLY FRANCO ([phone])[facility])[address] [place] [address] GLOMERULAR FILTRATION RATE ML/MIN/1.73 SQ M.PREDICTED 11.9 mL/min/1.73m*2 Low >60.0 [facility] Comment on above: Result Comment: Calc ulation based on the Chronic Kidney Disease Epidemiology Collaboration (CKD-EPI) equation refit without adjustment for race Performed By: #### L AB67, LAB15, BEU215, [id number] ####Detective Chief: PHILLY FRANCO ([phone])[facility])[address] [place] [address] Glucose [Mass/Vol] 47 mg/dL Critically low 82-115 [facility] Comment on above: Performed By: #### L AB67, LAB15, [id number], [id number] ####Detective Chief: PHILLY FRANCO ([phone])[facility] ([facility])[address] [place] [address] Potassium [Moles/Vol] 4.2 mmol/L Normal 3.5-5.1 [facility] Comment on above: Result Comment: [facility] potassium values may be up to 0.5 mmol/L lower than serum values. Performed By: #### L AB67, LAB15, [id number], [id number] ####Detective Chief: PHILLY FRANCO ([phone])[facility] ([facility])[address] [place] [address] [place] Sodium [Moles/Vol] 134 mmol/L Low 136-145 [facility] Comment on above: Performed By: #### L AB67, LAB15, [id number], [id number] ####Detective Chief: PHILLY FRANCO ([phone])[facility])[address] [place] [address] [place] Urea nitrogen [Mass/Vol] 22 mg/dL Normal 9-23 [facility] Comment on above: Performed By: #### L AB67, LAB15, [id number], [id number] ####Detective Chief: PHILLY FRANCO ([phone])[facility])[address] [place] [address] Basic metabolic 1998 panelOr dered By: Yogi Stanley on 12-13-2024 Anion gap [Moles/Vol] 9 mmol/L 3 - 13 mmol/L [facility] Calcium [Mass/Vol] 7.8 mg/dL Low 8.8 - 10. 0 mg/dL [facility] Chloride [Moles/Vol] 100 mmol/L 98 - 10 7 mmol/L [facility] CO2 [Moles/Vol] 25 mmol/L 23 - 31 mmol/L [facility] Creatinine [Mass/Vol] 3.82 mg/dL High 0.57 - 1.11 mg/dL [facility] GFR/1.73 sq M.predicted (S/P/Bld) [Vol rate/Area] 11.9 mL/min Low - PINF [facility] Glucose [Mass/Vol] 47 mg/dL Critically low 82 - 11 5 mg/dL [facility] Interpretation and review of laboratory results Abnormal [facility] Potassium [Moles/Vol] 4.2 mmol/L 3.5 - 5.1 mmol/L [facility] Sodium [Moles/Vol] 134 mmol/L Low 136 - 145 mmol/L [facility] Urea nitrogen [Mass/Vol] 22 mg/dL 9 - 23 mg/dL [facility] C-REACTIVE PROTEINon 025 CRP [Mass/Vol] 133.0 mg/L High <5.0 [facility] Comment on above: Performed By: #### L AB67, LAB15, [id number], [id number] ####Detective Chief: PHILLY FRANCO ([phone])[facility] ([facility])[address] [place] [address] CBC (HEMOGRAM)on 12-13-2024 Erythrocyte distribution width (RBC) [Ratio] 17.6 % High 11.5-15.0 [facility] Comment on above: Performed By: #### L AB294 ####Detective Chief: PHILLY FRANCO ([phone])[facility] ([facility])[address] [place] [address] Hematocrit (Bld) [Volume fraction] 25.3 % Low 35.0-47.0 [facility] Comment on above: Performed By: #### L AB294 ####Detective Chief: PHILLY FRANCO ([phone])[facility])[address] [place] [address] Hemoglobin (Bld) [Mass/Vol] 8.0 g/dL Low 11.7-16.0 [facility] Comment on above: Performed By: #### L AB294 ####Detective Chief: PHILLY FRANCO ([phone])[facility])[address] [place] [address] MCH (RBC) [Entitic mass] 29.1 pg Normal 26.0-34.0 [facility] Comment on above: Performed By: #### L AB294 ####Detective Chief: PHILLY FRANCO ([phone])[facility] ([facility])[address] [place] [address] MCHC 31.6 % Normal 30.5-36.0 [facility] Comment on above: Performed By: #### L AB294 ####Detective Chief: PHILLY FRANCO ([phone])[facility])[address] [place] [address] MCV (RBC) [Entitic vol] 92.0 fL Normal 77.0-99.0 [facility] Comment on above: Performed By: #### L AB294 ####Detective Chief: PHILLY FRANCO ([phone])[facility] ([facility])[address] [place] [address] Platelet mean volume (Bld) [Entitic vol] 10.5 fL Normal 9.0-12.7 [facility] Comment on above: Performed By: #### L [id number] ####Detective Chief: PHILLY FRANCO ([phone])[facility])[address] [place] [address] Platelets (Bld) [#/Vol] 312 10*3/uL Normal 140-440 [facility] Comment on above: Performed By: #### L [id number] ####Detective Chief: PHILLY FRANCO ([phone])[facility])[address] [place] [address] RBC (Bld) [#/Vol] 2.75 10*6/uL Low 3.80-5.20 [facility] Comment on above: Performed By: #### L [id number] ####Detective Chief: PHILLY FRANCO ([phone])[facility])[address] [place] [address] WBC (Bld) [#/Vol] 16.5 10*3/uL High 3.6-10.7 [facility] Comment on above: Performed By: #### L [id number] ####Detective Chief: PHILLY FRANCO ([phone])[address] CBC panel Auto (Bld)on 12-13 Erythrocyte distribution width (RBC) [Ratio] 17.6 % High 11.5 - 15.0 % [facility] Hematocrit (Bld) [Volume fraction] 25.3 % Low 35.0 - 47.0 % [facility] Hemoglobin (Bld) [Mass/Vol] 8 g/dL Low 11.7 - 16.0 g/dL [facility] Interpretation and review of laboratory results Abnormal [facility] MCH (RBC) [Entitic mass] 29.1 pg 26.0 - 34.0 pg [facility] MCHC (RBC) [Mass/Vol] 31.6 % 30.5 - 36.0 % [facility] MCV (RBC) [Entitic vol] 92 fL 77.0 - 99.0 fL [facility] Platelet mean volume (Bld) [Entitic vol] 10.5 fL 9.0 - 12.7 fL [facility] Platelets (Bld) [#/Vol] 312 10*3/uL 140 - 440 10*3/uL [facility] RBC (Bld) [#/Vol] 2.75 10*6/uL Low 3.80 - 5.2 0 10*6/uL [facility] WBC (Bld) [#/Vol] 16.5 10*3/uL High 3.6 - 10.7 10*3/uL [facility] CRP [Mass/Vol]on 12-13-2024 Interpretation and review of laboratory results Abnormal [facility] Cobalamin (Vitamin B12) [Mas s/Vol]on 12-13-2024 Interpretation and review of laboratory results Abnormal [facility] Health Consulton 12-13-2024 Consult Normal [facility] Consult Normal [facility] Consult Normal [facility] ECG 12-LEADon 12-13-2024 ECG 12-LEAD IMPRESSION: Sinus rhythm Probable LVH with secondary repol abnrm Electronically Signed On 12-13-2024 19:24:44 EDT by Bhavik Estrada Normal [facility] Laboratory - Chemistry and C hemistry - challengeon 12-13-2024 Glucose [Mass/Vol] 105 mg/dL High 70 - 100 mg/dL [facility] Cobalamin (Vitamin B12) [Mass/Vol] 1419 pg/mL High 213 - 816 pg/mL [facility] TSH Qn 0.83 m[IU]/L [facility] Glucose [Mass/Vol] 105 mg/dL High 70 - 100 mg/dL [facility] CRP [Mass/Vol] 133 mg/L High NINF - 5.0 mg/L [facility] Glucose [Mass/Vol] 78 mg/dL 70 - 100 mg/dL [facility] Glucose [Mass/Vol] 55 mg/dL Low 70 - 100 mg/dL [facility] Laboratory - Drug toxicology on 12-13-2024 Vancomycin [Mass/Vol] 15.4 ug/mL [facility] No Panel InformationOrdered By: Bhavik Estrada on 12-13-2024 P [place] 61 degrees [facility] Work Phone: UT Interval 121 ms [facility]: QRS [place] 20 degrees [employer] Work Phone: QRSD Interval 72 ms [facility] Work Phone: QT Interval 360 ms [facility] Work Phone: QTC Interval 451 ms [facility] Work Phone: T Wave [place] 19 degrees [facility] Work Phone: [facility] Work Phone: No Panel Informationon 12-13 CV EPIPHANY [facility] Interpretation and review of laboratory results Abnormal [facility] Interpretation and review of laboratory results Abnormal [facility] Interpretation and review of laboratory results Normal [facility] Interpretation and review of laboratory results Abnormal [facility] Nursing Noteon 12-13-2024 Nursing Note Brother Deshawn notified of using soft wrist restrained. Normal [facility] Nursing Note Unable to run pt tonight due to access issues, Dr Castaneda notified, order of cathflow ordered and placed in the access. Access to be reassessed in the morning. This RN will relay message to AM charge nurse. Normal [facility] Nursing Note Normal [facility] Progress Noteon 12-13-2024 Progress Note Normal [facility] Progress Note Normal [facility] Progress Note Normal [facility] Progress Note Normal [facility] Progress Note Normal [facility] Progress Note PHYSICAL THERAPY [facility] Name/MRN: Apoorva Gonzalez ([id number]) Date: 12/13/2024 Plans for MRI with sedation, also has pending shoulder x-rays. Will continue to hold and assess at a later time as able. Guilherme Tavares, PT Normal [facility] Progress Note Normal [facility] Progress Note To schedule mri with sedation please call [phone] Normal [facility] THYROID STIMULATING HORMONEo n 12-13-2024 THYROID STIMULATING HORMONE 0.83 uIU/mL Normal 0.35-4.94 [facility] Comment on above: Performed By: #### L AB67, LAB15, [id number], [id number] ####Detective Chief: PHILLY FRANCO ([id number])[facility] TSH Qnon 12-13-2024 Interpretation and review of laboratory results Normal [facility] VANCOMYCIN, RANDOMon 025 VANCOMYCIN 15.4 ug/mL Normal [facility] Comment on above: Result Comment: GUERO Amanda COMMENTS:Please obtain 4 hours after the end of hemodialysisToxicity is seen at concentrations >80-100 ug/mLTherapeutic (Peak) range: 20-40Therapeutic (Trough) range: 5-10 Performed By: #### L AB40 ####Detective Chief: PHILLY FRANCO ([phone])[facility] ([facility])[address] [place] [address] VITAMIN B12on 12-13-2024 Cobalamin (Vitamin B12) [Mass/Vol] 1419 pg/mL High 213-816 [facility] Comment on above: Performed By: #### L AB67, LAB15, [id number], [id number] ####Detective Chief: PHILLY FRANCO ([phone])[facility] [place] [address] Vital signsOrdered By: [place] Estrada on 12-13-2024 Heart rate 94 /min bpm [facility] Work Phone: XR SHOULDER 2+ VIEWS LEFTon 12-13-2024 XR SHOULDER 2+ VIEWS LEFT Normal [facility] XR Shoulder - left 2 Viewson 12-13-2024 [facility] Radiology Study observation (narrative) [facility] XR Shoulder - left 2 ViewsOr dered By: Barrera Stack on 12-13-2024 [facility] [place] Phone: [phone] 12-12-2024 [id number] Normal [facility] [id number] 12-12-2024 [id number] Normal [facility] BLOOD CULTUREon 12-12-2024 Bacteria identified Cx Nom (Bld) Normal [facility] Comment on above: Performed By: #### L [id number] ####Detective Chief: PHILLY FRANCO ([id number])[facility] ([facility])[address] [place] [address] CBC W Auto Differential pane l (Bld)on 12-12-2024 Basophils (Bld) [#/Vol] 0.1 10*3/uL 0.0 - 0.2 10*3/uL [facility] Basophils/100 WBC (Bld) 1.2 % 0.0 - 2.0 % [facility] Eosinophils (Bld) [#/Vol] 0.2 10*3/uL 0.0 - 0.5 10*3/uL [facility] Health Eosinophils/100 WBC (Bld) 2.1 % 0.0 - 6.0 % [facility] Erythrocyte distribution width (RBC) [Ratio] 17.8 % High 11.5 - 15.0 % [facility] Hematocrit (Bld) [Volume fraction] 24.8 % Low 35.0 - 47.0 % [facility] Hemoglobin (Bld) [Mass/Vol] 8 g/dL Low 11.7 - 16.0 g/dL [facility] Immature granulocytes (Bld) [#/Vol] 0.1 10*3/uL High NINF - 0.1 10*3/uL [facility] Immature granulocytes/100 WBC (Bld) 0.4 % 0.0 - 2.0 % [facility] Interpretation and review of laboratory results Abnormal [facility] Lymphocytes (Bld) [#/Vol] 1 10*3/uL 1.0 - 4.3 10*3/uL [facility] Health Lymphocytes/100 WBC (Bld) 8.5 % Low 15.0 - 45.0 % [facility] MCH (RBC) [Entitic mass] 29.7 pg 26.0 - 34.0 pg [facility] MCHC (RBC) [Mass/Vol] 32.3 % 30.5 - 36.0 % [facility] MCV (RBC) [Entitic vol] 92.2 fL 77.0 - 99.0 fL [facility] Monocytes (Bld) [#/Vol] 0.6 10*3/uL 0.0 - 0.9 10*3/uL [facility] Monocytes/100 WBC (Bld) 4.9 % Low 5.0 - 13.0 % [facility] Neutrophils (Bld) [#/Vol] 9.5 10*3/uL High 1.8 - 7.5 10*3/uL [facility] Neutrophils/100 WBC (Bld) 82.9 % High 38.0 - 82.0 % [facility] Nucleated RBC/100 WBC (Bld) [Ratio] 0 % [facility] Platelet mean volume (Bld) [Entitic vol] 10.7 fL 9.0 - 12.7 fL [facility] Platelets (Bld) [#/Vol] 332 10*3/uL 140 - 440 10*3/uL [facility] RBC (Bld) [#/Vol] 2.69 10*6/uL Low 3.80 - 5.2 0 10*6/uL [facility] WBC (Bld) [#/Vol] 11.5 10*3/uL High 3.6 - 10.7 10*3/uL [facility] CBC WITH AUTO DIFFERENTIALon 12-12-2024 Basophils (Bld) [#/Vol] 0.1 10*3/uL Normal 0.0-0.2 [facility] Comment on above: Performed By: #### L [id number] ####Detective Chief: PHILLY FRANCO ([phone])[facility])[address] [place] [address] Basophils/100 WBC (Bld) 1.2 % Normal 0.0-2.0 [facility] Comment on above: Performed By: #### L [id number] ####Detective Chief: PHILLY FRANCO ([phone])[facility])[address] [place] [address] Eosinophils (Bld) [#/Vol] 0.2 10*3/uL Normal 0.0-0.5 [facility] Comment on above: Performed By: #### L [id number] ####Detective Chief: PHILLY FRANCO ([phone])[facility])[address] [place] [address] Eosinophils/100 WBC (Bld) 2.1 % Normal 0.0-6.0 [facility] Comment on above: Performed By: #### L [id number] ####Detective Chief: PHILLY FRANCO ([phone])[facility])[address] [place] [address] Erythrocyte distribution width (RBC) [Ratio] 17.8 % High 11.5-15.0 [facility] Comment on above: Performed By: #### L [id number] ####Detective Chief: PHILLY FRANCO ([phone])[facility])[address] [place] [address] Hematocrit (Bld) [Volume fraction] 24.8 % Low 35.0-47.0 [facility] Comment on above: Performed By: #### L [id number] ####Detective Chief: PHILLY FRANCO ([phone])[facility])[address] [place] [address] Hemoglobin (Bld) [Mass/Vol] 8.0 g/dL Low 11.7-16.0 [facility] Comment on above: Performed By: #### L [id number] ####Detective Chief: PHILLY FRANCO ([id number])[facility])[address] [place] [address] IMMATURE GRANS % 0.4 % Normal 0.0-2.0 [facility] Comment on above: Performed By: #### L [id number] ####Detective Chief: PHILLY FRANCO ([phone])[facility])[address] [place] [address] IMMATURE GRANS ABSOLUTE 0.1 10*3/uL High <0.1 [facility] Comment on above: Performed By: #### L [id number] ####Detective Chief: PHILLY FRANCO ([phone])[facility])[address] [place] [address] Lymphocytes (Bld) [#/Vol] 1.0 10*3/uL Normal 1.0-4.3 [facility] Comment on above: Performed By: #### L [id number] ####Detective Chief: PHILLY FRANCO ([phone])[facility])[address] [place] [address] Lymphocytes/100 WBC (Bld) 8.5 % Low 15.0-45.0 [facility] Comment on above: Performed By: #### L [id number] ####Detective Chief: PHILLY FRANCO ([phone])[facility])[address] [place] [address] MCH (RBC) [Entitic mass] 29.7 pg Normal 26.0-34.0 [facility] Comment on above: Performed By: #### L [id number] ####Detective Chief: PHILLY FRANCO ([phone])[facility])[address] [place] [address] MCHC 32.3 % Normal 30.5-36.0 [facility] Comment on above: Performed By: #### L [id number] ####Detective Chief: PHILLY FRANCO ([id number])[facility])[address] [place] [address] MCV (RBC) [Entitic vol] 92.2 fL Normal 77.0-99.0 [facility] Comment on above: Performed By: #### L [id number] ####Detective Chief: PHILLY FRANCO ([phone])[facility])[address] [place] [address] Monocytes (Bld) [#/Vol] 0.6 10*3/uL Normal 0.0-0.9 [facility] Comment on above: Performed By: #### L [id number] ####Detective Chief: PHILLY FRANCO ([id number])[facility])[address] [place] [address] Monocytes/100 WBC (Bld) 4.9 % Low 5.0-13.0 [facility] Comment on above: Performed By: #### L [id number] ####Detective Chief: PHILLY FRANCO ([phone])[facility])[address] [place] [address] NEUTROPHILS ABSOLUTE 9.5 10*3/uL High 1.8-7.5 [facility] Comment on above: Performed By: #### L [id number] ####Detective Chief: PHILLY FRANCO ([phone])[facility])[address] [place] [address] Neutrophils/100 WBC (Bld) 82.9 % High 38.0-82.0 [facility] Comment on above: Performed By: #### L [id number] ####Detective Chief: PHILLY [id number])[facility])[address] [place] [address] NRBC 0.0 /100 WBCs Normal 0.0-2.0 [facility] Comment on above: Performed By: #### L [id number] ####Detective Chief: PHILLY FRANCO ([phone])[facility] ([facility])[address] [place] [address] Platelet mean volume (Bld) [Entitic vol] 10.7 fL Normal 9.0-12.7 [facility] Comment on above: Performed By: #### L [id number] ####Detective Chief: PHILLY FRANCO ([id number])[facility] ([facility])[address] [place] [address] Platelets (Bld) [#/Vol] 332 10*3/uL Normal 140-440 [facility] Comment on above: Performed By: #### L [id number] ####Detective Chief: PHILLY FRANCO ([id number])[facility] ([facility])[address] [place] [address] RBC (Bld) [#/Vol] 2.69 10*6/uL Low 3.80-5.20 [facility] Comment on above: Performed By: #### L [id number] ####Detective Chief: PHILLY FRANCO ([phone])[facility])[address] [place] [address] WBC (Bld) [#/Vol] 11.5 10*3/uL High 3.6-10.7 [facility] Comment on above: Performed By: #### L [id number] ####Detective Chief: PHILLY FRANCO ([phone])[facility])[address] [place] [address] COMPREHENSIVE METABOLIC PANE Fam 12-12-2024 Albumin [Mass/Vol] 1.4 g/dL Low 3.4-4.8 [facility] Comment on above: Performed By: #### L [id number] ####Detective Chief: PHILLY FRANCO ([phone])[facility])[address] [place] [address] ALP [Catalytic activity/Vol] 131 U/L Normal 40-150 [facility] Comment on above: Performed By: #### L AB17 ####Detective Chief: PHILLY FRANCO ([phone])[facility] ([facility])[address] [place] [address] ALT [Catalytic activity/Vol] 10 U/L Normal <30 [facility] Comment on above: Performed By: #### L AB17 ####Detective Chief: PHILLY FRANCO ([id number])[facility] ([facility])[address] [place] [address] Anion gap [Moles/Vol] 11 mmol/L Normal 3-13 [facility] Comment on above: Performed By: #### L AB17 ####Detective Chief: PHILLY FRANCO ([id number])[facility] ([facility])[address] [place] [address] AST [Catalytic activity/Vol] 36 U/L High <34 [facility] Comment on above: Performed By: #### L AB17 ####Detective Chief: PHILLY FRANCO ([phone])[facility] ([facility])[address] [place] [address] Bilirubin [Mass/Vol] 0.4 mg/dL Normal <1.2 [facility] Comment on above: Performed By: #### L AB17 ####Detective Chief: PHILLY FRANCO ([id number])[facility] ([facility])[address] [place] [address] Calcium [Mass/Vol] 7.8 mg/dL Low 8.8-10.0 [facility] Comment on above: Performed By: #### L AB17 ####Detective Chief: PHILLY FRANCO ([id number])[facility])[address] [place] [address] Chloride [Moles/Vol] 100 mmol/L Normal 98-107 [facility] Comment on above: Performed By: #### L AB17 ####Detective Chief: PHILLY FRANCO ([id number])[facility] ([facility])[address] [place] [address] CO2 [Moles/Vol] 26 mmol/L Normal 23-31 [facility] Comment on above: Performed By: #### L AB17 ####Detective Chief: PHILLY FRANCO ([phone])[facility])[address] [place] [address] Creatinine [Mass/Vol] 5.60 mg/dL High 0.57-1.11 [facility] Comment on above: Performed By: #### L AB17 ####Detective Chief: PHILLY FRANCO ([id number])[facility])[address] [place] [address] GLOMERULAR FILTRATION RATE ML/MIN/1.73 SQ M.PREDICTED 7.5 mL/min/1.73m*2 Low >60.0 [facility] Comment on above: Result Comment: Calc ulation based on the Chronic Kidney Disease Epidemiology Collaboration (CKD-EPI) equation refit without adjustment for race Performed By: #### L AB17 ####Detective Chief: PHILLY FRANCO ([phone])[facility] ([facility])[address] [place] [address] Glucose [Mass/Vol] 77 mg/dL Low 82-115 [facility] Comment on above: Performed By: #### L AB17 ####Detective Chief: PHILLY FRANCO ([phone])[facility])[address] [place] [address] Potassium [Moles/Vol] 4.1 mmol/L Normal 3.5-5.1 [facility] Comment on above: Result Comment: [facility] potassium values may be up to 0.5 mmol/L lower than serum values. Performed By: #### L AB17 ####Detective Chief: PHILLY FRANCO ([phone])[facility])[address] [place] [address] Protein [Mass/Vol] 6.1 g/dL Low 6.4-8.3 [facility] Comment on above: Performed By: #### L AB17 ####Detective Chief: PHILLY FRANCO ([phone])[facility] [place] [address] Sodium [Moles/Vol] 137 mmol/L Normal 136-145 [facility] Comment on above: Performed By: #### L AB17 ####Detective Chief: PHILLY FRANCO ([phone])[facility] [place] [address] Urea nitrogen [Mass/Vol] 38 mg/dL High 9-23 [facility] Comment on above: Performed By: #### L AB17 ####Detective Chief: PHILLY FRANCO ([id number])[facility] [place] [address] [place] HEAD WO IV CONTRASTon CT HEAD WO IV CONTRAST Normal [facility] Head WO contraston 2024 [facility] Radiology Study observation (narrative) [facility] Comprehensive metabolic 1998 panelon 12-12-2024 Albumin [Mass/Vol] 1.4 g/dL Low 3.4 - 4.8 g/dL [facility] ALP [Catalytic activity/Vol] 131 U/L 40 - 150 U/L [facility] ALT [Catalytic activity/Vol] 10 [facility]L [facility] Anion gap [Moles/Vol] 11 mmol/L 3 - 13 mmol/L [facility] AST [Catalytic activity/Vol] 36 U/L High NINF - 34 U/L [facility] Bilirubin [Mass/Vol] 0.4 mg/dL NINF - 1.2 mg/dL [facility] Calcium [Mass/Vol] 7.8 mg/dL Low 8.8 - 10. 0 mg/dL [facility] Chloride [Moles/Vol] 100 mmol/L 98 - 10 7 mmol/L [facility] CO2 [Moles/Vol] 26 mmol/L 23 - 31 mmol/L [facility] Creatinine [Mass/Vol] 5.6 mg/dL High 0.57 - 1.11 mg/dL [facility] GFR/1.73 sq M.predicted (S/P/Bld) [Vol rate/Area] 7.5 mL/min Low - PINF [facility] Glucose [Mass/Vol] 77 mg/dL Low 82 - 115 mg/dL [facility] Interpretation and review of laboratory results Abnormal [facility] Potassium [Moles/Vol] 4.1 mmol/L 3.5 - 5.1 mmol/L [facility] Protein [Mass/Vol] 6.1 g/dL Low 6.4 - 8.3 g/dL [facility] Sodium [Moles/Vol] 137 mmol/L 136 - 145 mmol/L [facility] Urea nitrogen [Mass/Vol] 38 mg/dL High 9 - 23 mg/dL [facility] Consulton 12-12-2024 Consult Normal [facility] Laboratory - Chemistry and C hemistry - challengeon 12-12-2024 Glucose [Mass/Vol] 117 mg/dL High 70 - 100 mg/dL [facility] Glucose [Mass/Vol] 63 mg/dL Low 70 - 100 mg/dL [facility] Glucose [Mass/Vol] 72 mg/dL 70 - 100 mg/dL [facility] No Panel Informationon 12-12 Interpretation and review of laboratory results Abnormal [facility] Interpretation and review of laboratory results Abnormal [facility] Interpretation and review of laboratory results Normal [facility] Nursing Noteon 12-12-2024 Nursing Note Normal [facility] Nursing Note Patient's significan t other had to be stopped from pouring water into patient's mouth. He said that he knows she has to be thirsty. RN educated on why you cannot do this as it can cause aspiration. Normal [facility] Nursing Note Normal [facility] Nursing Note Normal [facility] Nursing Note Patient to xray Normal [facility] Progress Noteon 12-12-2024 Progress Note OCCUPATIONAL THERAPY [facility] Name/MRN: Apoorva Gonzalez ([id number]) Date: 12/12/2024 Attempt Note Attempted OT eval. Awaiting results of C-spine MRI. ~Jelly Gleason MS, OTR/L Normal [facility] Progress Note Normal [facility] Progress Note Normal [facility] Progress Note Normal [facility] Progress Note Normal [facility] Progress Note MRI attempted again; pt. Unable to tolerate exam. Pt. Very confused, hitting head on camera, swinging arms and groaning. Too dangerous to leave pt. Alone on scanner due to fear of personal injury to self. MRI aborted. Normal [facility] Progress Note Normal [facility] XR ABDOMEN 1 VIEWon 12-13-19 25 XR ABDOMEN 1 VIEW Normal [facility] XR Abdomen Single viewon [facility] XR CHEST 1 VIEWon 12-12-2024 XR CHEST 1 VIEW Normal [facility] XR Chest Single viewon 12-12 [facility] 25-hydroxyvitamin D3 [Mass/V ol]on 12-11-2024 Interpretation and review of laboratory results Abnormal [facility] BLOOD GAS ARTERIALon 025 AMOUNT OF OXYGEN 21 Normal [facility] Comment on above: Performed By: #### L AB76 ####Detective Chief: PHILLY FRANCO ([phone])[facility])[address] [place] [address] Base excess Calc (Bld) [Moles/Vol] 3.6 mmol/L High -3.0-3.0 [facility] Comment on above: Performed By: #### L AB76 ####Detective Chief: PHILLY FRANCO ([phone])[facility])[address] [place] [address] CO2 [Moles/Vol] 28.8 mmol/L High 23.0-27.0 [facility] Comment on above: Performed By: #### L AB76 ####Detective Chief: PHILLY FRANCO ([phone])[facility])[address] [place] [address] HCO3 (Bld) [Moles/Vol] 27.6 mmol/L High 21.0-25.0 [facility] Comment on above: Performed By: #### L AB76 ####Detective Chief: PHILLY FRANCO ([phone])[facility])[address] [place] [address] [place] Hemoglobin (Bld) [Mass/Vol] 9.3 g/dL Normal Screen only [facility] Comment on above: Performed By: #### L AB76 ####Detective Chief: PHILLY FRANCO ([phone])[facility])[address] [place] [address] OXYGEN SATURATION (%) IN ARTERIAL BLOOD 85.3 % Low 95.0-100.0 [facility] Comment on above: Performed By: #### L AB76 ####Detective Chief: PHILLY FRANCO ([id number])[facility] ([facility])[address] [place] [address] PCO2 ARTERIAL 39.5 mm Hg Normal >35.0-<45.0 [facility] Comment on above: Performed By: #### L AB76 ####Detective Chief: PHILLY FRANCO ([phone])[facility])[address] [place] [address] PH ARTERIAL 7.462 High 7.350-7.450 [facility] Comment on above: Performed By: #### L AB76 ####Detective Chief: PHILLY FRANCO ([phone])[facility] ([facility])[address] [place] [address] PO2 ARTERIAL 51.0 mm Hg Low 80.0-100.0 [facility] Comment on above: Performed By: #### L AB76 ####Detective Chief: PHILLY FRANCO ([phone])[facility])[address] [place] [address] SOURCE OF OXYGEN None (Room Air) Normal [facility] Comment on above: Performed By: #### L [id number] ####Detective Chief: PHILLY FRANCO ([phone])[facility] ([facility])[address] [place] [address] CBC W Auto Differential pane l (Bld)Ordered By: Andre Ervin on 12-11-2024 Basophils (Bld) [#/Vol] 0.1 10*3/uL 0.0 - 0.2 10*3/uL [facility] Basophils/100 WBC (Bld) 1.1 % 0.0 - 2.0 % [facility] Eosinophils (Bld) [#/Vol] 0.4 10*3/uL 0.0 - 0.5 10*3/uL [facility] Eosinophils/100 WBC (Bld) 3.2 % 0.0 - 6.0 % [facility] Erythrocyte distribution width (RBC) [Ratio] 18.3 % High 11.5 - 15.0 % [facility] Hematocrit (Bld) [Volume fraction] 23.6 % Low 35.0 - 47.0 % [facility] Hemoglobin (Bld) [Mass/Vol] 7.7 g/dL Low 11.7 - 16.0 g/dL [facility] Immature granulocytes (Bld) [#/Vol] 0 10*3/uL NINF - 0.1 10*3/uL [facility] Immature granulocytes/100 WBC (Bld) 0.3 % 0.0 - 2.0 % [facility] Interpretation and review of laboratory results Abnormal [facility] IPF 2 [facility] Lymphocytes (Bld) [#/Vol] 1.3 10*3/uL 1.0 - 4.3 10*3/uL [facility] Lymphocytes/100 WBC (Bld) 10.5 % Low 15.0 - 45.0 % [facility] MCH (RBC) [Entitic mass] 30 pg 26.0 - 34.0 pg [facility] MCHC (RBC) [Mass/Vol] 32.6 % 30.5 - 36.0 % [facility] MCV (RBC) [Entitic vol] 91.8 fL 77.0 - 99.0 fL [facility] Monocytes (Bld) [#/Vol] 0.5 10*3/uL 0.0 - 0.9 10*3/uL [facility] Monocytes/100 WBC (Bld) 4.4 % Low 5.0 - 13.0 % [facility] Neutrophils (Bld) [#/Vol] 9.8 10*3/uL High 1.8 - 7.5 10*3/uL [facility] Neutrophils/100 WBC (Bld) 80.5 % 38.0 - 82.0 % [facility] Nucleated RBC/100 WBC (Bld) [Ratio] 0 % [facility] Platelet mean volume (Bld) [Entitic vol] 10.6 fL 9.0 - 12.7 fL [facility] Platelets (Bld) [#/Vol] 300 10*3/uL 140 - 440 10*3/uL [facility] RBC (Bld) [#/Vol] 2.57 10*6/uL Low 3.80 - 5.2 0 10*6/uL [facility] WBC (Bld) [#/Vol] 12.1 10*3/uL High 3.6 - 10.7 10*3/uL [facility] CBC WITH AUTO DIFFERENTIALon 12-11-2024 Basophils (Bld) [#/Vol] 0.1 10*3/uL Normal 0.0-0.2 [facility] Comment on above: Performed By: #### L [id number] ####Detective Chief: PHILLY FRANCO ([phone])[facility] ([facility])[address] [place] [address] Basophils/100 WBC (Bld) 1.1 % Normal 0.0-2.0 [facility] Comment on above: Performed By: #### L [id number] ####Detective Chief: PHILLY FRANCO ([phone])[facility] ([facility])[address] [place] [address] [place] Eosinophils (Bld) [#/Vol] 0.4 10*3/uL Normal 0.0-0.5 [facility] Comment on above: Performed By: #### L [id number] ####Detective Chief: PHILLY FRANCO ([phone])[facility] ([facility])[address] [place] [address] [place] Eosinophils/100 WBC (Bld) 3.2 % Normal 0.0-6.0 [facility] Comment on above: Performed By: #### L [id number] ####Detective Chief: PHILLY FRANCO ([phone])[facility])[address] [place] [address] Erythrocyte distribution width (RBC) [Ratio] 18.3 % High 11.5-15.0 [facility] Comment on above: Performed By: #### L [id number] ####Detective Chief: PHILLY [phone])[facility] ([facility])[address] [place] [address] Hematocrit (Bld) [Volume fraction] 23.6 % Low 35.0-47.0 [facility] Comment on above: Performed By: #### L [id number] ####Detective Chief: PHILLY FRANCO ([phone])[facility])[address] [place] [address] Hemoglobin (Bld) [Mass/Vol] 7.7 g/dL Low 11.7-16.0 [facility] Comment on above: Performed By: #### L [id number] ####Detective Chief: PHILLY FRANCO ([phone])[facility])[address] [place] [address] IMMATURE GRANS % 0.3 % Normal 0.0-2.0 [facility] Comment on above: Performed By: #### L [id number] ####Detective Chief: PHILLY FRANCO ([phone])[facility] ([facility])[address] [place] [address] IMMATURE GRANS ABSOLUTE 0.0 10*3/uL Normal <0.1 [facility] Comment on above: Performed By: #### L [id number] ####Detective Chief: PHILLY FRANCO ([phone])[facility])[address] [place] [address] [place] IPF 2 Normal [facility] Comment on above: Performed By: #### L [id number] ####Detective Chief: PHILLY FRANCO ([phone])[facility])[address] [place] [address] Lymphocytes (Bld) [#/Vol] 1.3 10*3/uL Normal 1.0-4.3 [facility] Comment on above: Performed By: #### L [id number] ####Detective Chief: PHILLY FRANCO ([phone])[facility])[address] [place] [address] Lymphocytes/100 WBC (Bld) 10.5 % Low 15.0-45.0 [facility] Comment on above: Performed By: #### L [id number] ####Detective Chief: PHILLY FRANCO ([phone])[facility])[address] [place] [address] MCH (RBC) [Entitic mass] 30.0 pg Normal 26.0-34.0 [facility] Comment on above: Performed By: #### L [id number] ####Detective Chief: PHILLY FRANCO ([phone])[facility])[address] [place] [address] MCHC 32.6 % Normal 30.5-36.0 [facility] Comment on above: Performed By: #### L [id number] ####Detective Chief: PHILLY FRANCO ([phone])[address] MCV (RBC) [Entitic vol] 91.8 fL Normal 77.0-99.0 [facility] Comment on above: Performed By: #### L [id number] ####Detective Chief: PHILLY FRANCO ([phone])[address] Monocytes (Bld) [#/Vol] 0.5 10*3/uL Normal 0.0-0.9 [facility] Comment on above: Performed By: #### L [id number] ####Detective Chief: PHILLY FRANCO ([phone])[address] Monocytes/100 WBC (Bld) 4.4 % Low 5.0-13.0 [facility] Comment on above: Performed By: #### L [id number] ####Detective Chief: PHILLY FRANCO ([phone])[address] NEUTROPHILS ABSOLUTE 9.8 10*3/uL High 1.8-7.5 [facility] Comment on above: Performed By: #### L [id number] ####Detective Chief: PHILLY FRANCO ([phone])[facility] ([facility])[address] [place] [address] Neutrophils/100 WBC (Bld) 80.5 % Normal 38.0-82.0 [facility] Comment on above: Performed By: #### L [id number] ####Detective Chief: PHILLY FRANCO ([phone])[facility] ([facility])[address] [place] [address] NRBC 0.0 /100 WBCs Normal 0.0-2.0 [facility] Comment on above: Performed By: #### L [id number] ####Detective Chief: PHILLY FRANCO ([phone])[facility] ([facility])[address] [place] [address] Platelet mean volume (Bld) [Entitic vol] 10.6 fL Normal 9.0-12.7 [facility] Comment on above: Performed By: #### L [id number] ####Detective Chief: PHILLY FRANCO ([phone])[facility] ([facility])[address] [place] [address] Platelets (Bld) [#/Vol] 300 10*3/uL Normal 140-440 [facility] Comment on above: Performed By: #### L [id number] ####Detective Chief: PHILLY FRANCO ([phone])[facility] ([facility])[address] [place] [address] RBC (Bld) [#/Vol] 2.57 10*6/uL Low 3.80-5.20 [facility] Comment on above: Performed By: #### L [id number] ####Detective Chief: PHILLY FRANCO ([phone])[facility] ([facility])[address] [place] [address] [place] WBC (Bld) [#/Vol] 12.1 10*3/uL High 3.6-10.7 [facility] Comment on above: Performed By: #### L [id number] ####Detective Chief: PHILLY FRANCO ([phone])[facility] ([facility])[address] [place] [address] COMPREHENSIVE METABOLIC PANE Fam 12-11-2024 Albumin [Mass/Vol] 1.5 g/dL Low 3.4-4.8 [facility] Comment on above: Performed By: #### L [id number] ####Detective Chief: PHILLY FRANCO ([phone])[facility] ([facility])[address] [place] [address] ALP [Catalytic activity/Vol] 149 U/L Normal 40-150 [facility] Comment on above: Performed By: #### L [id number] ####Detective Chief: PHILLY FRANCO ([phone])[facility] ([facility])[address] [place] [address] ALT [Catalytic activity/Vol] 13 U/L Normal <30 [facility] Comment on above: Performed By: #### L [id number] ####Detective Chief: PHILLY FRANCO ([id number])[facility] ([facility])[address] [place] [address] Anion gap [Moles/Vol] 11 mmol/L Normal 3-13 [facility] Comment on above: Performed By: #### L [id number] ####Detective Chief: PHILLY FRANCO ([phone])[facility])[address] [place] [address] AST [Catalytic activity/Vol] 41 U/L High <34 [facility] Comment on above: Performed By: #### L [id number] ####Detective Chief: PHILLY FRANCO ([phone])[facility])[address] [place] [address] Bilirubin [Mass/Vol] 0.4 mg/dL Normal <1.2 [facility] Comment on above: Performed By: #### L [id number] ####Detective Chief: PHILLY FRANCO ([phone])[facility])[address] [place] [address] Calcium [Mass/Vol] 8.0 mg/dL Low 8.8-10.0 [facility] Comment on above: Performed By: #### L [id number] ####Detective Chief: PHILLY FRANCO ([phone])[facility])[address] [place] [address] Chloride [Moles/Vol] 100 mmol/L Normal 98-107 [facility] Comment on above: Performed By: #### L [id number] ####Detective Chief: PHILLY FRANCO ([phone])[facility])[address] [place] [address] CO2 [Moles/Vol] 27 mmol/L Normal 23-31 [facility] Comment on above: Performed By: #### L [id number] ####Detective Chief: PHILLY FRANCO ([phone])[facility])[address] [place] [address] Creatinine [Mass/Vol] 4.96 mg/dL High 0.57-1.11 [facility] Comment on above: Performed By: #### L [id number] ####Detective Chief: PHILLY FRANCO ([phone])[facility])[address] [place] [address] GLOMERULAR FILTRATION RATE ML/MIN/1.73 SQ M.PREDICTED 8.7 mL/min/1.73m*2 Low >60.0 [facility] Comment on above: Result Comment: Calc ulation based on the Chronic Kidney Disease Epidemiology Collaboration (CKD-EPI) equation refit without adjustment for race Performed By: #### L [id number] ####Detective Chief: PHILLY FRANCO ([phone])[facility])[address] [place] [address] Glucose [Mass/Vol] 74 mg/dL Low 82-115 [facility] Comment on above: Performed By: #### L [id number] ####Detective Chief: PHILLY FRANCO ([phone])[facility])[address] [place] [address] Potassium [Moles/Vol] 3.7 mmol/L Normal 3.5-5.1 [facility] Comment on above: Result Comment: [facility] potassium values may be up to 0.5 mmol/L lower than serum values. Performed By: #### L [id number] ####Detective Chief: PHILLY FRANCO ([phone])[facility] ([facility])[address] [place] [address] Protein [Mass/Vol] 6.5 g/dL Normal 6.4-8.3 [facility] Comment on above: Performed By: #### L [id number] ####Detective Chief: PHILLY FRANCO ([phone])[facility] ([facility])[address] [place] [address] Sodium [Moles/Vol] 138 mmol/L Normal 136-145 [facility] Comment on above: Performed By: #### L [id number] ####Detective Chief: PHILLY FRANCO ([phone])[facility] ([facility])[address] [place] [address] Urea nitrogen [Mass/Vol] 32 mg/dL High 9-23 [facility] Comment on above: Performed By: #### L [id number] ####Detective Chief: PHILLY FRANCO ([phone])[facility] ([facility])[address] [place] [address] [place] IV CONTRASTon [facility] HEAD WO IV CONTRAST Normal [facility] CT Head WO contraston 2024 [facility] RADIOLOGY [facility] Comprehensive metabolic 1998 panelon 12-11-2024 Albumin [Mass/Vol] 1.5 g/dL Low 3.4 - 4.8 g/dL [facility] ALP [Catalytic activity/Vol] 149 U/L 40 - 150 U/L [facility] ALT [Catalytic activity/Vol] 13 U/L NINF - 30 U/L [facility] Anion gap [Moles/Vol] 11 mmol/L 3 - 13 mmol/L [facility] AST [Catalytic activity/Vol] 41 U/L High NINF - 34 U/L [facility] Bilirubin [Mass/Vol] 0.4 mg/dL NINF - 1.2 mg/dL [facility] Calcium [Mass/Vol] 8 mg/dL Low 8.8 - 10. 0 mg/dL [facility] Chloride [Moles/Vol] 100 mmol/L 98 - 10 7 mmol/L [facility] CO2 [Moles/Vol] 27 mmol/L 23 - 31 mmol/L [facility] Creatinine [Mass/Vol] 4.96 mg/dL High 0.57 - 1.11 mg/dL [facility] GFR/1.73 sq M.predicted (S/P/Bld) [Vol rate/Area] 8.7 mL/min Low - PINF [facility] Glucose [Mass/Vol] 74 mg/dL Low 82 - 115 mg/dL [facility] Interpretation and review of laboratory results Abnormal [facility] Potassium [Moles/Vol] 3.7 mmol/L 3.5 - 5.1 mmol/L [facility] Protein [Mass/Vol] 6.5 g/dL 6.4 - 8.3 g/dL [facility] Sodium [Moles/Vol] 138 mmol/L 136 - 145 mmol/L [facility] Urea nitrogen [Mass/Vol] 32 mg/dL High 9 - 23 mg/dL [facility] Consulton 12-11-2024 Consult Normal [facility] LACTIC ACID WITH REFLEXon Lactate [Moles/Vol] 0.6 mmol/L Normal 0.5-2.2 [facility] Comment on above: Performed By: #### L [id number] ####Detective Chief: PHLILY FRANCO ([phone])[address] Laboratory - Chemistry and C hemistry - challengeon 12-11-2024 Lactate [Moles/Vol] 0.6 mmol/L 0.5 - 2. 2 mmol/L [facility] Base excess Calc (Bld) [Moles/Vol] 3.6 mmol/L High -3.0 - 3.0 mmol/L [facility] CO2 (Bld) [Partial pressure] 39.5 mm[Hg] - PINF [facility] CO2 [Moles/Vol] 28.8 mmol/L High 23.0 - 27.0 mmol/L [facility] HCO3 (Bld) [Moles/Vol] 27.6 mmol/L High 21.0 - 25.0 mmol/L [facility] Oxygen (Bld) [Partial pressure] 51 mm[Hg] Low [facility] pH (Bld) 7.462 [pH] High 7.350 - 7.450 [facility] Glucose [Mass/Vol] 95 mg/dL 70 - 100 mg/dL [facility] 25-hydroxyvitamin D3 [Mass/Vol] 60 ng/mL High 20 - 50 ng/mL [facility] Laboratory - Hematology and Cell countson 12-11-2024 Hemoglobin (Bld) [Mass/Vol] 9.3 g/dL 7.0 g/dl [facility] No Panel Informationon 12-11 Radiology Study observation (narrative) [facility] Interpretation and review of laboratory results Normal [facility] Amount Of Oxygen 21 [facility] Interpretation and review of laboratory results Abnormal [facility] Source Of Oxygen None (Room Air) [facility] Interpretation and review of laboratory results Normal [facility] Nursing Noteon 12-11-2024 Nursing Note Spoke with MRI regarding pt being unable to answer MRI questions. Messaged skilled nursing professional for order for chest xray and KUB. Normal [facility] Nursing Note Normal [facility] Progress Noteon 12-11-2024 Progress Note OCCUPATIONAL THERAPY [facility] Name/MRN: Apoorva Gonzalez ([id number]) Date: 12/11/2024 OT eval on hold pending MRI c-spine imaging. Will evaluate as appropriate. Leonila Rios, OT Normal [facility] Progress Note Normal [facility] Progress Note Normal [facility] Progress Note PHYSICAL THERAPY [facility] Name/MRN: Apoorva Gonzalez ([id number]) Date: 12/11/2024 PT held pending MRI c-spine imaging. Anitha Luna, PT Normal [facility] Progress Note Normal [facility] Progress Note Normal [facility] VITAMIN D DEFICIENCY SCREENI NG (VIT D 25)on 12-11-2024 VIT D 25-OH, TOTAL 60 ng/mL High See comment [facility] Comment on above: Result Comment: SHAWNE R COMMENTS:Target concentration: 30 - 40 ng/mL; toxicity seen at concentrations >100 ng/mLLess than 20 ng/mL: Indicative of Vit D deficiencyTest performed by [employer], measuring Total Vitamin D, not individual fractions. Performed By: #### L [id number] ####Detective Chief: PHILLY FRANCO ([phone])[facility] ([facility])[address] [place] [address] CBC W Auto Differential pane l (Bld)on 12-10-2024 Basophils (Bld) [#/Vol] 0.1 10*3/uL 0.0 - 0.2 10*3/uL [facility] Basophils/100 WBC (Bld) 1.3 % 0.0 - 2.0 % [facility] Eosinophils (Bld) [#/Vol] 0.3 10*3/uL 0.0 - 0.5 10*3/uL [facility] Eosinophils/100 WBC (Bld) 2.6 % 0.0 - 6.0 % [facility] Erythrocyte distribution width (RBC) [Ratio] 18.6 % High 11.5 - 15.0 % [facility] Hematocrit (Bld) [Volume fraction] 23.2 % Low 35.0 - 47.0 % [facility] Hemoglobin (Bld) [Mass/Vol] 7.3 g/dL Low 11.7 - 16.0 g/dL [facility] Immature granulocytes (Bld) [#/Vol] 0 10*3/uL NINF - 0.1 10*3/uL [facility] Immature granulocytes/100 WBC (Bld) 0.4 % 0.0 - 2.0 % [facility] Interpretation and review of laboratory results Abnormal [facility] Lymphocytes (Bld) [#/Vol] 1.4 10*3/uL 1.0 - 4.3 10*3/uL [facility] Lymphocytes/100 WBC (Bld) 14.1 % Low 15.0 - 45.0 % [facility] MCH (RBC) [Entitic mass] 29.1 pg 26.0 - 34.0 pg [facility] MCHC (RBC) [Mass/Vol] 31.5 % 30.5 - 36.0 % [facility] MCV (RBC) [Entitic vol] 92.4 fL 77.0 - 99.0 fL [facility] Monocytes (Bld) [#/Vol] 0.7 10*3/uL 0.0 - 0.9 10*3/uL [facility] Monocytes/100 WBC (Bld) 7 % 5.0 - 13.0 % [facility] Neutrophils (Bld) [#/Vol] 7.6 10*3/uL High 1.8 - 7.5 10*3/uL [facility] Neutrophils/100 WBC (Bld) 74.6 % 38.0 - 82.0 % [facility] Nucleated RBC/100 WBC (Bld) [Ratio] 0 % [facility] Platelet mean volume (Bld) [Entitic vol] 10.3 fL 9.0 - 12.7 fL [facility] Platelets (Bld) [#/Vol] 293 10*3/uL 140 - 440 10*3/uL [facility] RBC (Bld) [#/Vol] 2.51 10*6/uL Low 3.80 - 5.2 0 10*6/uL [facility] WBC (Bld) [#/Vol] 10.2 10*3/uL 3.6 - 10.7 10*3/uL [facility] CBC WITH AUTO DIFFERENTIALon 12-10-2024 Basophils (Bld) [#/Vol] 0.1 10*3/uL Normal 0.0-0.2 [facility] Comment on above: Performed By: #### L [id number] ####Detective Chief: PHILLY FRANCO ([phone])[facility])[address] [place] [address] Basophils/100 WBC (Bld) 1.3 % Normal 0.0-2.0 [facility] Comment on above: Performed By: #### L [id number] ####Detective Chief: PHILLY FRANCO ([phone])[facility])[address] [place] [address] [place] Eosinophils (Bld) [#/Vol] 0.3 10*3/uL Normal 0.0-0.5 [facility] Comment on above: Performed By: #### L [id number] ####Detective Chief: PHILLY [phone])[facility])[address] [place] [address] [place] Eosinophils/100 WBC (Bld) 2.6 % Normal 0.0-6.0 [facility] Comment on above: Performed By: #### L [id number] ####Detective Chief: PHILLY [phone])[facility])[address] [place] [address] Erythrocyte distribution width (RBC) [Ratio] 18.6 % High 11.5-15.0 [facility] Comment on above: Performed By: #### L [id number] ####Detective Chief: PHILLY FRANCO ([phone])[facility])[address] [place] [address] Hematocrit (Bld) [Volume fraction] 23.2 % Low 35.0-47.0 [facility] Comment on above: Performed By: #### L [id number] ####Detective Chief: PHILLY FRANCO ([phone])[facility])[address] [place] [address] Hemoglobin (Bld) [Mass/Vol] 7.3 g/dL Low 11.7-16.0 [facility] Comment on above: Performed By: #### L [id number] ####Detective Chief: PHILLY FRANCO ([phone])[facility])[address] [place] [address] IMMATURE GRANS % 0.4 % Normal 0.0-2.0 [facility] Comment on above: Performed By: #### L [id number] ####Detective Chief: PHILLY FRANCO ([phone])[facility])[address] [place] [address] IMMATURE GRANS ABSOLUTE 0.0 10*3/uL Normal <0.1 [facility] Comment on above: Performed By: #### L [id number] ####Detective Chief: PHILLY FRANCO ([phone])[facility])[address] [place] [address] Lymphocytes (Bld) [#/Vol] 1.4 10*3/uL Normal 1.0-4.3 [facility] Comment on above: Performed By: #### L [id number] ####Detective Chief: PHILLY FRANCO ([phone])[facility])[address] [place] [address] [place] Lymphocytes/100 WBC (Bld) 14.1 % Low 15.0-45.0 [facility] Comment on above: Performed By: #### L [id number] ####Detective Chief: PHILLY FRANCO ([phone])[facility])[address] [place] [address] MCH (RBC) [Entitic mass] 29.1 pg Normal 26.0-34.0 [facility] Comment on above: Performed By: #### L [id number] ####Detective Chief: PHILLY FRANCO ([phone])[facility])[address] [place] [address] MCHC 31.5 % Normal 30.5-36.0 [facility] Comment on above: Performed By: #### L [id number] ####Detective Chief: PHILLY FRANCO ([phone])[facility])[address] [place] [address] MCV (RBC) [Entitic vol] 92.4 fL Normal 77.0-99.0 [facility] Comment on above: Performed By: #### L [id number] ####Detective Chief: PHILLY FRANCO ([phone])[facility])[address] [place] [address] Monocytes (Bld) [#/Vol] 0.7 10*3/uL Normal 0.0-0.9 [facility] Comment on above: Performed By: #### L [id number] ####Detective Chief: PHILLY FRANCO ([phone])[facility])[address] [place] [address] Monocytes/100 WBC (Bld) 7.0 % Normal 5.0-13.0 [facility] Comment on above: Performed By: #### L [id number] ####Detective Chief: PHILLY FRANCO ([phone])[facility])[address] [place] [address] NEUTROPHILS ABSOLUTE 7.6 10*3/uL High 1.8-7.5 [facility] Comment on above: Performed By: #### L [id number] ####Detective Chief: PHILLY FRANCO ([phone])[facility] ([facility])[address] [place] [address] Neutrophils/100 WBC (Bld) 74.6 % Normal 38.0-82.0 [facility] Comment on above: Performed By: #### L [id number] ####Detective Chief: PHILLY FRANCO ([phone])[facility])[address] [place] [address] NRBC 0.0 /100 WBCs Normal 0.0-2.0 [facility] Comment on above: Performed By: #### L [id number] ####Detective Chief: PHILLY FRANCO ([phone])[facility])[address] [place] [address] Platelet mean volume (Bld) [Entitic vol] 10.3 fL Normal 9.0-12.7 [facility] Comment on above: Performed By: #### L [id number] ####Detective Chief: PHILLY FRANCO ([phone])[facility] ([facility])[address] [place] [address] Platelets (Bld) [#/Vol] 293 10*3/uL Normal 140-440 [facility] Comment on above: Performed By: #### L [id number] ####Detective Chief: PHILLY FRANCO ([phone])[facility])[address] [place] [address] RBC (Bld) [#/Vol] 2.51 10*6/uL Low 3.80-5.20 [facility] Comment on above: Performed By: #### L [id number] ####Detective Chief: PHILLY FRANCO ([phone])[facility])[address] [place] [address] WBC (Bld) [#/Vol] 10.2 10*3/uL Normal 3.6-10.7 [facility] Comment on above: Performed By: #### L [id number] ####Detective Chief: PHILLY FRANCO ([phone])[facility] ([facility])[address] [place] [address] COMPREHENSIVE METABOLIC PANE Fam 12-10-2024 Albumin [Mass/Vol] 1.4 g/dL Low 3.4-4.8 [facility] Comment on above: Performed By: #### L AB103, LAB17 ####Detective Chief: PHILLY FRANCO ([phone])[facility] ([facility])[address] [place] [address] ALP [Catalytic activity/Vol] 125 U/L Normal 40-150 [facility] Comment on above: Performed By: #### L AB103, LAB17 ####Detective Chief: PHILLY FRANCO ([phone])[facility] ([facility])[address] [place] [address] ALT [Catalytic activity/Vol] 11 U/L Normal <30 [facility] Comment on above: Performed By: #### Jose KENDALL, LAB17 ####Detective Chief: PHILLY FRANCO ([phone])[facility] ([facility])[address] [place] [address] Anion gap [Moles/Vol] 10 mmol/L Normal 3-13 [facility] Comment on above: Performed By: #### L AB103, LAB17 ####Detective Chief: PHILLY FRANCO ([phone])[facility] ([facility])[address] [place] [address] AST [Catalytic activity/Vol] 36 U/L High <34 [facility] Comment on above: Performed By: #### L AB103, LAB17 ####Detective Chief: PHILLY FRANCO ([phone])[facility] ([facility])[address] [place] [address] [place] Bilirubin [Mass/Vol] 0.4 mg/dL Normal <1.2 [facility] Comment on above: Performed By: #### L AB103, LAB17 ####Detective Chief: PHILLY FRANCO ([phone])[facility] ([facility])[address] [place] [address] Calcium [Mass/Vol] 7.5 mg/dL Low 8.8-10.0 [facility] Comment on above: Performed By: #### L AB103, LAB17 ####Detective Chief: PHILLY FRANCO ([phone])[facility] ([facility])[address] [place] [address] Chloride [Moles/Vol] 99 mmol/L Normal 98-107 [facility] Comment on above: Performed By: #### L AB103, LAB17 ####Detective Chief: PHILLY FRANCO ([phone])[facility] ([facility])[address] [place] [address] [place] CO2 [Moles/Vol] 26 mmol/L Normal 23-31 [facility] Comment on above: Performed By: #### L AB103, LAB17 ####Detective Chief: PHILLY FRANCO ([phone])[facility] ([facility])[address] [place] [address] Creatinine [Mass/Vol] 4.24 mg/dL High 0.57-1.11 [facility] Comment on above: Performed By: #### L AB103, LAB17 ####Detective Chief: PHILLY FRANCO ([phone])[facility] ([facility])[address] [place] [address] GLOMERULAR FILTRATION RATE ML/MIN/1.73 SQ M.PREDICTED 10.5 mL/min/1.73m*2 Low >60.0 [facility] Comment on above: Result Comment: Calc ulation based on the Chronic Kidney Disease Epidemiology Collaboration (CKD-EPI) equation refit without adjustment for race Performed By: #### L AB103, LAB17 ####Detective Chief: PHILLY FRANCO ([phone])[facility] ([facility])[address] [place] [address] [place] Glucose [Mass/Vol] 74 mg/dL Low 82-115 [facility] Comment on above: Performed By: #### L AB103, LAB17 ####Detective Chief: PHILLY FRANCO ([phone])[facility] ([facility])[address] [place] [address] [place] Potassium [Moles/Vol] 3.4 mmol/L Low 3.5-5.1 [facility] Comment on above: Result Comment: [facility] potassium values may be up to 0.5 mmol/L lower than serum values. Performed By: #### L AB103, LAB17 ####Detective Chief: PHILLY FRANCO ([phone])[facility] ([facility])[address] [place] [address] Protein [Mass/Vol] 5.7 g/dL Low 6.4-8.3 [facility] Comment on above: Performed By: #### L AB103, LAB17 ####Detective Chief: PHILLY FRANCO ([phone])[facility] ([facility])[address] [place] [address] Sodium [Moles/Vol] 135 mmol/L Low 136-145 [facility] Comment on above: Performed By: #### L AB103, LAB17 ####Detective Chief: PHILLY FRANCO ([phone])[facility] ([facility])[address] [place] [address] Urea nitrogen [Mass/Vol] 25 mg/dL High 9-23 [facility] Comment on above: Performed By: #### L AB103, LAB17 ####Detective Chief: PHILLY FRANCO ([phone])[facility])[address] [place] [address] Comprehensive metabolic 1998 panelon 12-10-2024 Albumin [Mass/Vol] 1.4 g/dL Low 3.4 - 4.8 g/dL [facility] ALP [Catalytic activity/Vol] 125 U/L 40 - 150 U/L [facility] ALT [Catalytic activity/Vol] 11 U/L NINF - 30 U/L [facility] Anion gap [Moles/Vol] 10 mmol/L 3 - 13 mmol/L [facility] AST [Catalytic activity/Vol] 36 U/L High NINF - 34 U/L [facility] Bilirubin [Mass/Vol] 0.4 mg/dL NINF - 1.2 mg/dL [facility] Calcium [Mass/Vol] 7.5 mg/dL Low 8.8 - 10. 0 mg/dL [facility] Chloride [Moles/Vol] 99 mmol/L 98 - 10 7 mmol/L [facility] CO2 [Moles/Vol] 26 mmol/L 23 - 31 mmol/L [facility] Creatinine [Mass/Vol] 4.24 mg/dL High 0.57 - 1.11 mg/dL [facility] GFR/1.73 sq M.predicted (S/P/Bld) [Vol rate/Area] 10.5 mL/min Low - PINF [facility] Glucose [Mass/Vol] 74 mg/dL Low 82 - 115 mg/dL [facility] Interpretation and review of laboratory results Abnormal [facility] Potassium [Moles/Vol] 3.4 mmol/L Low 3.5 - 5.1 mmol/L [facility] Protein [Mass/Vol] 5.7 g/dL Low 6.4 - 8.3 g/dL [facility] Sodium [Moles/Vol] 135 mmol/L Low 136 - 145 mmol/L [facility] Urea nitrogen [Mass/Vol] 25 mg/dL High 9 - 23 mg/dL [facility] Consulton 12-10-2024 Consult Normal [facility] - Chemistry and C hemistry - challengeon 12-10-2024 Magnesium [Mass/Vol] 1.8 mg/dL 1.6 - 2 .6 mg/dL [facility] MAGNESIUMon 12-10-2024 Magnesium [Mass/Vol] 1.8 mg/dL Normal 1.6-2.6 [facility] Comment on above: Result Comment: GUERO Amanda COMMENTS:Higher values can be expected in females during menses. Performed By: #### L AB103, LAB17 ####Detective Chief: PHILLY FRANCO ([phone])[facility] ([address] Magnesium [Mass/Vol]on 12-10 Interpretation and review of laboratory results Normal [facility] Nursing Noteon 12-10-2024 Nursing Note Unable to give IV antibiotic at this time due to occluded IV site. Was unsuccessful to place new IV so I called RR team to come place one. 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 Normal [facility] Progress Noteon 12-10-2024 Progress Note Normal [facility] Progress Note Normal [facility] CBC W Auto Differential pane l (Bld)on 12-09-2024 Basophils (Bld) [#/Vol] 0.1 10*3/uL 0.0 - 0.2 10*3/uL [facility] Basophils/100 WBC (Bld) 1.1 % 0.0 - 2.0 % [facility] Eosinophils (Bld) [#/Vol] 0.2 10*3/uL 0.0 - 0.5 10*3/uL [facility] Eosinophils/100 WBC (Bld) 2.3 % 0.0 - 6.0 % [facility] Erythrocyte distribution width (RBC) [Ratio] 18.7 % High 11.5 - 15.0 % [facility] Hematocrit (Bld) [Volume fraction] 23.5 % Low 35.0 - 47.0 % [facility] Hemoglobin (Bld) [Mass/Vol] 7.6 g/dL Low 11.7 - 16.0 g/dL [facility] Immature granulocytes (Bld) [#/Vol] 0 10*3/uL NINF - 0.1 10*3/uL [facility] Immature granulocytes/100 WBC (Bld) 0.2 % 0.0 - 2.0 % [facility] Interpretation and review of laboratory results Abnormal [facility] Lymphocytes (Bld) [#/Vol] 1.2 10*3/uL 1.0 - 4.3 10*3/uL [facility] Lymphocytes/100 WBC (Bld) 12.8 % Low 15.0 - 45.0 % [facility] MCH (RBC) [Entitic mass] 29.7 pg 26.0 - 34.0 pg [facility] MCHC (RBC) [Mass/Vol] 32.3 % 30.5 - 36.0 % [facility] MCV (RBC) [Entitic vol] 91.8 fL 77.0 - 99.0 fL [facility] Monocytes (Bld) [#/Vol] 0.8 10*3/uL 0.0 - 0.9 10*3/uL [facility] Monocytes/100 WBC (Bld) 7.8 % 5.0 - 13.0 % [facility] Neutrophils (Bld) [#/Vol] 7.4 10*3/uL 1.8 - 7.5 10*3/uL [facility] Neutrophils/100 WBC (Bld) 75.8 % 38.0 - 82.0 % [facility] Nucleated RBC/100 WBC (Bld) [Ratio] 0 % [facility] Platelet mean volume (Bld) [Entitic vol] 10.3 fL 9.0 - 12.7 fL [facility] Platelets (Bld) [#/Vol] 311 10*3/uL 140 - 440 10*3/uL [facility] RBC (Bld) [#/Vol] 2.56 10*6/uL Low 3.80 - 5.2 0 10*6/uL [facility] WBC (Bld) [#/Vol] 9.7 10*3/uL 3.6 - 10.7 10*3/uL [facility] CBC WITH AUTO DIFFERENTIALon 12-09-2024 Basophils (Bld) [#/Vol] 0.1 10*3/uL Normal 0.0-0.2 [facility] Comment on above: Performed By: #### L [id number] ####Detective Chief: PHILLY FRANCO ([phone])[facility])[address] [place] [address] Basophils/100 WBC (Bld) 1.1 % Normal 0.0-2.0 [facility] Comment on above: Performed By: #### L [id number] ####Detective Chief: PHILLY FRANCO ([phone])[facility])[address] [place] [address] Eosinophils (Bld) [#/Vol] 0.2 10*3/uL Normal 0.0-0.5 [facility] Comment on above: Performed By: #### L [id number] ####Detective Chief: PHILLY FRANCO ([phone])[facility])[address] [place] [address] Eosinophils/100 WBC (Bld) 2.3 % Normal 0.0-6.0 [facility] Comment on above: Performed By: #### L [id number] ####Detective Chief: PHILLY FRANCO ([phone])[facility])[address] [place] [address] [place] Erythrocyte distribution width (RBC) [Ratio] 18.7 % High 11.5-15.0 [facility] Comment on above: Performed By: #### L [id number] ####Detective Chief: PHILLY FRANCO ([phone])[facility])[address] [place] [address] Hematocrit (Bld) [Volume fraction] 23.5 % Low 35.0-47.0 [facility] Comment on above: Performed By: #### L [id number] ####Detective Chief: PHILLY FRANCO ([phone])[facility])[address] [place] [address] Hemoglobin (Bld) [Mass/Vol] 7.6 g/dL Low 11.7-16.0 [facility] Comment on above: Performed By: #### L [id number] ####Detective Chief: PHILLY FRANCO ([phone])[facility])[address] [place] [address] IMMATURE GRANS % 0.2 % Normal 0.0-2.0 [facility] Comment on above: Performed By: #### L [id number] ####Detective Chief: PHILLY FRANCO ([phone])[address] IMMATURE GRANS ABSOLUTE 0.0 10*3/uL Normal <0.1 [facility] Comment on above: Performed By: #### L [id number] ####Detective Chief: PHILLY FRANCO ([phone])[facility])[address] [place] [address] Lymphocytes (Bld) [#/Vol] 1.2 10*3/uL Normal 1.0-4.3 [facility] Comment on above: Performed By: #### L [id number] ####Detective Chief: PHILLY FRANCO ([phone])[facility])[address] [place] [address] [place] Lymphocytes/100 WBC (Bld) 12.8 % Low 15.0-45.0 [facility] Comment on above: Performed By: #### L [id number] ####Detective Chief: PHILLY FRANCO ([phone])[facility])[address] [place] [address] MCH (RBC) [Entitic mass] 29.7 pg Normal 26.0-34.0 [facility] Comment on above: Performed By: #### L [id number] ####Detective Chief: PHILLY FRNACO ([id number])[facility])[address] [place] [address] MCHC 32.3 % Normal 30.5-36.0 [facility] Comment on above: Performed By: #### L [id number] ####Detective Chief: PHILLY FRANCO ([phone])[facility])[address] [place] [address] MCV (RBC) [Entitic vol] 91.8 fL Normal 77.0-99.0 [facility] Comment on above: Performed By: #### L [id number] ####Detective Chief: PHILLY FRANCO ([phone])[facility])[address] [place] [address] Monocytes (Bld) [#/Vol] 0.8 10*3/uL Normal 0.0-0.9 [facility] Comment on above: Performed By: #### L [id number] ####Detective Chief: PHILLY FRANCO ([phone])[facility])[address] [place] [address] Monocytes/100 WBC (Bld) 7.8 % Normal 5.0-13.0 [facility] Comment on above: Performed By: #### L [id number] ####Detective Chief: PHILLY FRANCO ([id number])[address] NEUTROPHILS ABSOLUTE 7.4 10*3/uL Normal 1.8-7.5 [facility] Comment on above: Performed By: #### L [id number] ####Detective Chief: PHILLY FRANCO ([phone])[facility])[address] [place] [address] Neutrophils/100 WBC (Bld) 75.8 % Normal 38.0-82.0 [facility] Comment on above: Performed By: #### L [id number] ####Detective Chief: PHILLY FRANCO ([phone])[facility] ([facility])[address] [place] [address] NRBC 0.0 /100 WBCs Normal 0.0-2.0 [facility] Comment on above: Performed By: #### L [id number] ####Detective Chief: PHILLY FRANCO ([phone])[facility])[address] [place] [address] Platelet mean volume (Bld) [Entitic vol] 10.3 fL Normal 9.0-12.7 [facility] Comment on above: Performed By: #### L [id number] ####Detective Chief: PHILLY FRANCO ([id number])[facility] ([facility])[address] [place] [address] Platelets (Bld) [#/Vol] 311 10*3/uL Normal 140-440 [facility] Comment on above: Performed By: #### L [id number] ####Detective Chief: PHILLY FRANCO ([phone])[facility] ([facility])[address] [place] [address] RBC (Bld) [#/Vol] 2.56 10*6/uL Low 3.80-5.20 [facility] Comment on above: Performed By: #### L [id number] ####Detective Chief: PHILLY FRANCO ([phone])[facility] ([facility])[address] [place] [address] [place] WBC (Bld) [#/Vol] 9.7 10*3/uL Normal 3.6-10.7 [facility] Comment on above: Performed By: #### L [id number] ####Detective Chief: PHILLY FRANCO ([phone])[facility] ([facility])[address] [place] [address] [place] Consulton 12-09-2024 Consult Normal [facility] ED Nursing Noteon 12-09-2024 ED Nursing Note IV re established an d blood reconnected to complete infusion Normal [facility] ED Nursing Note US IV nurse called away to trauma. Will re attempt when able Normal [facility] ED Nursing Note Patient placed in hospital bed for comfort while awaiting inpatient room assignment. While removing old bed from room patient IV tubing got caught and IV was displaced. Blood product placed on hold at this time until new US IV can be established. Normal [facility] Laboratory - Chemistry and C hemistry - challengeon 12-09-2024 Albumin [Mass/Vol] 1.5 g/dL Low 3.4 - 4.8 g/dL [facility] Anion gap [Moles/Vol] 8 mmol/L 3 - 13 mmol/L [facility] Calcium [Mass/Vol] 7.6 mg/dL Low 8.8 - 10. 0 mg/dL [facility] Chloride [Moles/Vol] 96 mmol/L Low 98 - 10 7 mmol/L [facility] CO2 [Moles/Vol] 32 mmol/L High 23 - 31 mmol/L [facility] Creatinine [Mass/Vol] 3.73 mg/dL High 0.57 - 1.11 mg/dL [facility] GFR/1.73 sq M.predicted (S/P/Bld) [Vol rate/Area] 12.2 mL/min Low - PINF [facility] Glucose [Mass/Vol] 79 mg/dL Low 82 - 115 mg/dL [facility] Phosphate [Mass/Vol] 1.7 mg/dL Low 2.3 - 4 .7 mg/dL [facility] Potassium [Moles/Vol] 3.1 mmol/L Low 3.5 - 5.1 mmol/L [facility] Sodium [Moles/Vol] 136 mmol/L 136 - 145 mmol/L [facility] Urea nitrogen [Mass/Vol] 19 mg/dL 9 - 23 mg/dL [facility] No Panel Informationon 12-09 Interpretation and review of laboratory results Abnormal [facility] Blood Expiration Date [id number] [facility] Crossmatch interpretation COMP [facility] Dispense Status Transfused [facility] Product Blood Type 5100 [facility] PRODUCT CODE [id number] [facility] Unit ABO O [facility] Unit Number [id number] [facility] Unit RH Positive [facility] Unit Volume 300 mL [facility] Nursing Noteon 12-09-2024 Nursing Note Pt states she would like to return to [facility] at discharge Normal [facility] Progress Noteon 12-09-2024 Progress Note 2nd attempt for MRI with meds patient still refusing exam Normal [facility] Progress Note Normal [facility] Progress Note Pt attempted MRI but could not complete the exam. Patient refusing to continue exam. Normal [facility] Progress Note OCCUPATIONAL THERAPY [facility] Name/MRN: Apoorva Gonzalez ([id number]) Date: 12/09/2024 OT orders received and chart reviewed. MRI pending c-spine for r/o discitis, will await results prior to initiating OT eval. Jelly Fischer, OT Normal [facility] Progress Note Normal [facility] Progress Note Normal [facility] RENAL FUNCTION PANELon 12-09 Albumin [Mass/Vol] 1.5 g/dL Low 3.4-4.8 [facility] Comment on above: Performed By: #### L [id number] ####Detective Chief: PHILLY FRANCO ([phone])[address] Anion gap [Moles/Vol] 8 mmol/L Normal 3-13 [facility] Comment on above: Performed By: #### L AB19 ####Detective Chief: PHILLY FRANCO ([phone])[facility])[address] [place] [address] Calcium [Mass/Vol] 7.6 mg/dL Low 8.8-10.0 [facility] Comment on above: Performed By: #### L AB19 ####Detective Chief: PHILLY FRANCO ([phone])[address] Chloride [Moles/Vol] 96 mmol/L Low 98-107 [facility] Comment on above: Performed By: #### L AB19 ####Detective Chief: PHILLY FRANCO ([phone])[facility] ([facility])[address] [place] [address] CO2 [Moles/Vol] 32 mmol/L High 23-31 [facility] Comment on above: Performed By: #### L AB19 ####Detective Chief: PHILLY FRANCO ([phone])[facility])[address] [place] [address] Creatinine [Mass/Vol] 3.73 mg/dL High 0.57-1.11 [facility] Comment on above: Performed By: #### L AB19 ####Detective Chief: PHILLY FRANCO ([phone])[facility])[address] [place] [address] GLOMERULAR FILTRATION RATE ML/MIN/1.73 SQ M.PREDICTED 12.2 mL/min/1.73m*2 Low >60.0 [facility] Comment on above: Result Comment: Calc ulation based on the Chronic Kidney Disease Epidemiology Collaboration (CKD-EPI) equation refit without adjustment for race Performed By: #### L AB19 ####Detective Chief: PHILLY FRANCO ([phone])[facility] ([facility])[address] [place] [address] Glucose [Mass/Vol] 79 mg/dL Low 82-115 [facility] Comment on above: Performed By: #### L AB19 ####Detective Chief: PHILLY FRANCO ([phone])[facility])[address] [place] [address] [place] Phosphate [Mass/Vol] 1.7 mg/dL Low 2.3-4.7 [facility] Comment on above: Performed By: #### L AB19 ####Detective Chief: PHILLY FRANCO ([phone])[facility])[address] [place] [address] Potassium [Moles/Vol] 3.1 mmol/L Low 3.5-5.1 [facility] Comment on above: Result Comment: [facility] potassium values may be up to 0.5 mmol/L lower than serum values. Performed By: #### L AB19 ####Detective Chief: PHILLY FRANCO ([phone])[facility] ([facility])[address] [place] [address] Sodium [Moles/Vol] 136 mmol/L Normal 136-145 [facility] Comment on above: Performed By: #### L AB19 ####Detective Chief: PHILLY FRANCO ([phone])[facility] ([facility])[address] [place] [address] Urea nitrogen [Mass/Vol] 19 mg/dL Normal 9-23 [facility] Comment on above: Performed By: #### L AB19 ####Detective Chief: PHILLY FRANCO ([phone])[facility] ([facility])[address] [place] [address] XR Hip - left 3 Viewson [facility] RADIOLOGY [facility] Radiology Study observation (narrative) [facility] XR Hip - left 3 ViewsOrdered By: Honorio Grande on 12-09-2024 [facility] Work Phone: BLOOD TYPE AND SCREEN GELon 12-08-2024 ABO GROUPING O Normal [facility] Comment on above: Performed By: #### L [id number] ####Detective Chief: PHILLY FRANCO ([phone])[facility] ([facility])[address] [place] [address] RH TYPE IN BLOOD Positive Normal [facility] Comment on above: Performed By: #### L [id number] ####Detective Chief: PHILLY FRANCO ([phone])[facility] ([facility])[address] [place] [address] Blood type and Crossmatch pa kojo (Bld)on 12-08-2024 ABO group Nom (Bld) O [facility] Blood group antibody screen GEL Ql Negative [facility] D Ag Ql (RBC) Positive [facility] CBC W Auto Differential pane l (Bld)Ordered By: Rimma Galloway on 12-08-2024 Basophils (Bld) [#/Vol] 0.1 10*3/uL 0.0 - 0.2 10*3/uL [facility] Basophils/100 WBC (Bld) 0.8 % 0.0 - 2.0 % [facility] Eosinophils (Bld) [#/Vol] 0.1 10*3/uL 0.0 - 0.5 10*3/uL [facility] Eosinophils/100 WBC (Bld) 0.9 % 0.0 - 6.0 % [facility] Erythrocyte distribution width (RBC) [Ratio] 18.4 % High 11.5 - 15.0 % [facility] Hematocrit (Bld) [Volume fraction] 20.9 % Low 35.0 - 47.0 % [facility] Hemoglobin (Bld) [Mass/Vol] 6.9 g/dL Critically low 11.7 - 16.0 g/dL [facility] Immature granulocytes (Bld) [#/Vol] 0.1 10*3/uL High NINF - 0.1 10*3/uL [facility] Immature granulocytes/100 WBC (Bld) 0.4 % 0.0 - 2.0 % [facility] Interpretation and review of laboratory results Abnormal [facility] Lymphocytes (Bld) [#/Vol] 0.8 10*3/uL Low 1.0 - 4.3 10*3/uL [facility] Lymphocytes/100 WBC (Bld) 7.4 % Low 15.0 - 45.0 % [facility] MCH (RBC) [Entitic mass] 30.5 pg 26.0 - 34.0 pg [facility] MCHC (RBC) [Mass/Vol] 33 % 30.5 - 36.0 % [facility] [facility] MCV (RBC) [Entitic vol] 92.5 fL 77.0 - 99.0 fL [facility] Monocytes (Bld) [#/Vol] 0.6 10*3/uL 0.0 - 0.9 10*3/uL [facility] Monocytes/100 WBC (Bld) 4.9 % Low 5.0 - 13.0 % [facility] Neutrophils (Bld) [#/Vol] 9.6 10*3/uL High 1.8 - 7.5 10*3/uL [facility] Neutrophils/100 WBC (Bld) 85.6 % High 38.0 - 82.0 % [facility] Nucleated RBC/100 WBC (Bld) [Ratio] 0 % [facility] Platelet mean volume (Bld) [Entitic vol] 10.1 fL 9.0 - 12.7 fL [facility] Platelets (Bld) [#/Vol] 359 10*3/uL 140 - 440 10*3/uL [facility] RBC (Bld) [#/Vol] 2.26 10*6/uL Low 3.80 - 5.2 0 10*6/uL [facility] WBC (Bld) [#/Vol] 11.2 10*3/uL High 3.6 - 10.7 10*3/uL [facility] CBC WITH AUTO DIFFERENTIALon 12-08-2024 Basophils (Bld) [#/Vol] 0.1 10*3/uL Normal 0.0-0.2 [facility] Comment on above: Performed By: #### L [id number] ####Detective Chief: PHILLY FRANCO ([phone])[facility])[address] [place] [address] Basophils/100 WBC (Bld) 0.8 % Normal 0.0-2.0 [facility] Comment on above: Performed By: #### L [id number] ####Detective Chief: PHILLY FRANCO ([phone])[facility])[address] [place] [address] Eosinophils (Bld) [#/Vol] 0.1 10*3/uL Normal 0.0-0.5 [facility] Comment on above: Performed By: #### L [id number] ####Detective Chief: PHILLY FRANCO ([phone])[facility])[address] [place] [address] Eosinophils/100 WBC (Bld) 0.9 % Normal 0.0-6.0 [facility] Comment on above: Performed By: #### L [id number] ####Detective Chief: PHILLY FRANCO ([phone])[facility])[address] [place] [address] Erythrocyte distribution width (RBC) [Ratio] 18.4 % High 11.5-15.0 [facility] Comment on above: Performed By: #### L [id number] ####Detective Chief: PHILLY FRANCO ([phone])[facility])[address] [place] [address] Hematocrit (Bld) [Volume fraction] 20.9 % Low 35.0-47.0 [facility] Comment on above: Performed By: #### L [id number] ####Detective Chief: PHILLY FRANCO ([phone])[facility])[address] [place] [address] Hemoglobin (Bld) [Mass/Vol] 6.9 g/dL Critically low 11.7-16.0 [facility] Comment on above: Performed By: #### L [id number] ####Detective Chief: PHILLY FRANCO ([phone])[facility])[address] [place] [address] IMMATURE GRANS % 0.4 % Normal 0.0-2.0 [facility] Comment on above: Performed By: #### L [id number] ####Detective Chief: PHILLY FRANCO ([phone])[facility])[address] [place] [address] IMMATURE GRANS ABSOLUTE 0.1 10*3/uL High <0.1 [facility] Comment on above: Performed By: #### L [id number] ####Detective Chief: PHILLY FRANCO ([phone])[facility])[address] [place] [address] Lymphocytes (Bld) [#/Vol] 0.8 10*3/uL Low 1.0-4.3 [facility] Comment on above: Performed By: #### L [id number] ####Detective Chief: PHILLY FRANCO ([phone])[facility])[address] [place] [address] [place] Lymphocytes/100 WBC (Bld) 7.4 % Low 15.0-45.0 [facility] Comment on above: Performed By: #### L [id number] ####Detective Chief: PHILLY FRANCO ([phone])[facility])[address] [place] [address] MCH (RBC) [Entitic mass] 30.5 pg Normal 26.0-34.0 [facility] Comment on above: Performed By: #### L [id number] ####Detective Chief: PHILLY FRANCO ([phone])[facility])[address] [place] [address] MCHC 33.0 % Normal 30.5-36.0 [facility] Comment on above: Performed By: #### L [id number] ####Detective Chief: PHILLY FRANCO ([phone])[facility])[address] [place] [address] MCV (RBC) [Entitic vol] 92.5 fL Normal 77.0-99.0 [facility] Comment on above: Performed By: #### L [id number] ####Detective Chief: PHILLY FRANCO ([phone])[facility])[address] [place] [address] Monocytes (Bld) [#/Vol] 0.6 10*3/uL Normal 0.0-0.9 [facility] Comment on above: Performed By: #### L [id number] ####Detective Chief: PHILLY FRANCO ([phone])[facility])[address] [place] [address] Monocytes/100 WBC (Bld) 4.9 % Low 5.0-13.0 [facility] Comment on above: Performed By: #### L [id number] ####Detective Chief: PHILLY FRANCO ([phone])[facility])[address] [place] [address] NEUTROPHILS ABSOLUTE 9.6 10*3/uL High 1.8-7.5 [facility] Comment on above: Performed By: #### L [id number] ####Detective Chief: PHILLY FRANCO ([phone])[facility])[address] [place] [address] Neutrophils/100 WBC (Bld) 85.6 % High 38.0-82.0 [facility] Comment on above: Performed By: #### L [id number] ####Detective Chief: PHILLY FRANCO ([phone])[facility] ([facility])[address] [place] [address] NRBC 0.0 /100 WBCs Normal 0.0-2.0 [facility] Comment on above: Performed By: #### L [id number] ####Detective Chief: PHILLY FRANCO ([phone])[facility] ([facility])[address] [place] [address] Platelet mean volume (Bld) [Entitic vol] 10.1 fL Normal 9.0-12.7 [facility] Comment on above: Performed By: #### L [id number] ####Detective Chief: PHILLY FRANCO ([phone])[facility] ([facility])[address] [place] [address] Platelets (Bld) [#/Vol] 359 10*3/uL Normal 140-440 [facility] Comment on above: Performed By: #### L [id number] ####Detective Chief: PHILLY FRANCO ([phone])[facility] ([facility])[address] [place] [address] RBC (Bld) [#/Vol] 2.26 10*6/uL Low 3.80-5.20 [facility] Comment on above: Performed By: #### L [id number] ####Detective Chief: PHILLY FRANCO ([phone])[facility] ([facility])[address] [place] [address] WBC (Bld) [#/Vol] 11.2 10*3/uL High 3.6-10.7 [facility] Comment on above: Performed By: #### L [id number] ####Detective Chief: PHILLY FRANCO ([phone])[facility])[address] [place] [address] COMPREHENSIVE METABOLIC PANE Fam 12-08-2024 Albumin [Mass/Vol] 1.6 g/dL Low 3.4-4.8 [facility] Comment on above: Performed By: #### L [id number] ####Detective Chief: PHILLY FRANCO ([phone])[facility] ([facility])[address] [place] [address] ALP [Catalytic activity/Vol] 166 U/L High 40-150 [facility] Comment on above: Performed By: #### L [id number] ####Detective Chief: PHILLY FRANCO ([phone])[facility] ([facility])[address] [place] [address] [place] ALT [Catalytic activity/Vol] 14 U/L Normal <30 [facility] Comment on above: Performed By: #### L [id number] ####Detective Chief: PHILLY FRANCO ([phone])[facility] ([facility])[address] [place] [address] Anion gap [Moles/Vol] 11 mmol/L Normal 3-13 [facility] Comment on above: Performed By: #### L [id number] ####Detective Chief: PHILLY FRANCO ([phone])[facility] ([facility])[address] [place] [address] AST [Catalytic activity/Vol] 46 U/L High <34 [facility] Comment on above: Performed By: #### L [id number] ####Detective Chief: PHILLY FRANCO ([id number])[facility] ([facility])[address] [place] [address] Bilirubin [Mass/Vol] 0.4 mg/dL Normal <1.2 [facility] Comment on above: Performed By: #### L [id number] ####Detective Chief: PHILLY FRANCO ([phone])[facility] ([facility])[address] [place] [address] Calcium [Mass/Vol] 8.1 mg/dL Low 8.8-10.0 [facility] Comment on above: Performed By: #### L [id number] ####Detective Chief: PHILLY FRANCO ([phone])[facility] ([facility])[address] [place] [address] [place] Chloride [Moles/Vol] 94 mmol/L Low 98-107 [facility] Comment on above: Performed By: #### L [id number] ####Detective Chief: PHILLY FRANCO ([phone])[facility])[address] [place] [address] CO2 [Moles/Vol] 30 mmol/L Normal 23-31 [facility] Comment on above: Performed By: #### L [id number] ####Detective Chief: PHILLY FRANCO ([phone])[facility])[address] [place] [address] Creatinine [Mass/Vol] 3.05 mg/dL High 0.57-1.11 [facility] Comment on above: Performed By: #### L AB17 ####Detective Chief: PHILLY FRANCO ([phone])[address] GLOMERULAR FILTRATION RATE ML/MIN/1.73 SQ M.PREDICTED 15.5 mL/min/1.73m*2 Low >60.0 [facility] Comment on above: Result Comment: Calc ulation based on the Chronic Kidney Disease Epidemiology Collaboration (CKD-EPI) equation refit without adjustment for race Performed By: #### L [id number] ####Detective Chief: PHILLY FRANCO ([phone])[address] Glucose [Mass/Vol] 101 mg/dL Normal 82-115 [facility] Comment on above: Performed By: #### L AB17 ####Detective Chief: PHILLY FRANCO ([id number])[facility])[address] [place] [address] Potassium [Moles/Vol] 2.6 mmol/L Critically low 3.5-5.1 [facility] Comment on above: Result Comment: [facility] potassium values may be up to 0.5 mmol/L lower than serum values. Performed By: #### L [id number] ####Detective Chief: PHILLY FRANCO ([phone])[facility])[address] [place] [address] Protein [Mass/Vol] 6.4 g/dL Normal 6.4-8.3 [facility] Comment on above: Performed By: #### L [id number] ####Detective Chief: PHILLY FRANCO ([phone])[facility] ([facility])[address] [place] [address] Sodium [Moles/Vol] 135 mmol/L Low 136-145 [facility] Comment on above: Performed By: #### L AB17 ####Detective Chief: PHILLY FRANCO ([phone])[facility] ([facility])[address] [place] [address] Urea nitrogen [Mass/Vol] 17 mg/dL Normal 9-23 [facility] Comment on above: Performed By: #### L AB17 ####Detective Chief: PHILLY FRANCO ([phone])[facility] ([facility])[address] [place] [address] CT CERVICAL SPINE WO IV CONT RASTon 12-08-2024 CT CERVICAL SPINE WO IV CONTRAST Normal [facility] CT HEAD WO IV CONTRASTon CT HEAD WO IV CONTRAST Normal [facility] Comprehensive metabolic 1998 panelOrdered By: Brenda Means on 12-08-2024 Albumin [Mass/Vol] 1.6 g/dL Low 3.4 - 4.8 g/dL [facility] ALP [Catalytic activity/Vol] 166 U/L High 40 - 150 U/L [facility] ALT [Catalytic activity/Vol] 14 U/L NINF - 30 U/L [facility] Anion gap [Moles/Vol] 11 mmol/L 3 - 13 mmol/L [facility] AST [Catalytic activity/Vol] 46 U/L High NINF - 34 U/L [facility] Bilirubin [Mass/Vol] 0.4 mg/dL NINF - 1.2 mg/dL [facility] Calcium [Mass/Vol] 8.1 mg/dL Low 8.8 - 10. 0 mg/dL [facility] Chloride [Moles/Vol] 94 mmol/L Low 98 - 10 7 mmol/L [facility] CO2 [Moles/Vol] 30 mmol/L 23 - 31 mmol/L [facility] Creatinine [Mass/Vol] 3.05 mg/dL High 0.57 - 1.11 mg/dL [facility] GFR/1.73 sq M.predicted (S/P/Bld) [Vol rate/Area] 15.5 mL/min Low - PINF [facility] Glucose [Mass/Vol] 101 mg/dL 82 - 115 mg/dL [facility] Interpretation and review of laboratory results Abnormal [facility] Potassium [Moles/Vol] 2.6 mmol/L Critically low 3.5 - 5.1 mmol/L [facility] Protein [Mass/Vol] 6.4 g/dL 6.4 - 8.3 g/dL [facility] Sodium [Moles/Vol] 135 mmol/L Low 136 - 145 mmol/L [facility] Urea nitrogen [Mass/Vol] 17 mg/dL 9 - 23 mg/dL [facility] ED Nursing Noteon 12-08-2024 ED Nursing Note MRI screening completed at this time. Normal [facility] ED Provider Noteon ED Provider Note Normal [facility] No Panel Informationon 12-08 [facility] Radiology Study observation (narrative) [facility] No Panel InformationOrdered By: Norman Malin on 12-08-2024 [employer] Work Phone: No Panel InformationOrdered By: Mason Duran on 12-06-2024 Left antecubital vein depth 2.4 cm [employer] Phone: Left Antecutibal Vein Diam 1.1 mm [employer] Phone: Left Axillary Artery Diameter 0.77 cm [employer] Phone: Left Axillary Vein Diameter 5.3 mm [employer] Phone: Left Brachial A dist PSV 54.3 cm/s [employer] Phone: Left brachial artery distal diameter 0.57 cm [employer] Phone: Left Brachial Vein 1 Diam 1.9 mm [employer] Phone: Left Cephalic Vein Lower Arm Dist Diam 0.8 mm [employer] Phone: Left Cephalic Vein Lower Arm Mid Diam 1.1 mm [facility] Work Phone: Left Cephalic Vein Lower Arm Prox Diam 0.8 mm [facility] Work Phone: Left Cephalic Vein Upper Arm Dist Diam 1.2 mm [facility] Work Phone: Left forearm cephalic vein distal depth 1.93 cm [facility] Work Phone: Left forearm cephalic vein mid depth 2.11 cm [facility] Work Phone: Left forearm cephalic vein proximal depth 1.93 cm [facility] Work Phone: Left Mid Ax A PSV 52.2 cm/s [facility] Work Phone: Left Radial A dist PSV 76 cm/s [facility] Work Phone: Left Radial A mid PSV 103.7 cm/s [facility] Work Phone: Left Radial A prox PSV 65.3 cm/s [facility] Work Phone: Left radial artery dist diameter 0.18 cm [facility] Work Phone: Left radial artery mid diameter 0.27 cm [facility] Work Phone: Left radial artery proximal diameter 0.32 cm [facility] Work Phone: Left Subclavian Vein Diameter 6.3 mm [facility] Work Phone: Left upper cephalic vein distal depth 3.33 cm [facility] Work Phone: Right Ax A mid PSV 71.6 cm/s [facility] Work Phone: Right Axillary Artery Diameter 0.66 cm [facility] Work Phone: Right Axillary Vein Diameter 5.9 mm [facility] Work Phone: Right Basilic Vein Lower Arm Prox Diam 0.7 mm [facility] Work Phone: Right Basilic Vein Upper Arm Mid Diam 0.8 mm [facility] Work Phone: Right Brachial A dist PSV 66.2 cm/s [facility] Work Phone: [phone] Right Brachial A mid PSV 83.4 cm/s [facility] Work Phone: Right Brachial A prox PSV 85.8 cm/s [facility] Work Phone: Right brachial artery distal diameter 0.49 cm [facility] Work Phone: Right brachial artery mid diameter 0.49 cm [facility] Work Phone: Right brachial artery proximal diameter 0.55 cm [facility] Work Phone: Right Brachial Vein 1 Diam 3.2 mm [facility] Work Phone: Right Brachial Vein 2 Diam 2.6 mm [facility] Work Phone: Right Cephalic Vein Upper Arm Dist Diam 0.9 mm [facility] Work Phone: Right Cephalic Vein Upper Arm Mid Diam 0.5 mm [facility] Work Phone: [phone] Right Radial A dist PSV 76 cm/s [facility] Work Phone: Right Radial A mid PSV 82.1 cm/s [facility] Work Phone: Right Radial A prox PSV 88.3 cm/s S [facility] Work Phone: Right radial artery distal diameter 0.27 cm [facility] Work Phone: Right radial artery mid diameter 0.23 cm [facility] Work Phone: Right radial artery proximal diameter 0.23 cm [facility] Work Phone: Right Subclavian Vein Diameter 7.6 mm [facility] Work Phone: Right upper cephalic vein distal depth 2.2 cm [facility] Work Phone: Right upper cephalic vein mid depth 2.15 cm [facility] Work Phone: No Panel Informationon 12-06 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 No evidence of deep vein thrombosis in the right upper extremity. No evidence of deep vein thrombosis in the left upper extremity. No evidence of superficial vein thrombosis in the left upper extremity. Vessel diameters as noted in the table below. Study Details A nix scale, color Doppler imaging and spectral Doppler analysis ultrasound was performed. During the study longitudinal and transverse views were obtained. Pulsed wave doppler was performed. The exam was performed with the patient in the supine position. Overall the study quality was limited. Study was technically difficult due to: casts or medical dressings. Right Upper Arterial Axillary Artery: Patent and multiphasic. Brachial Artery: Patent and multiphasic. Radial Artery: Patent and multiphasic. Right Upper Venous No evidence of DVT. Innominate Vein: Patent, spontaneous. Subclavian Vein: Patent, normal phasicity, spontaneous, normal augmentation, compressible. Axillary Vein: Patent, normal phasicity, spontaneous, normal augmentation, compressible. Brachial Vein: Patent, normal phasicity, spontaneous, compressible. 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 Basilic and cephalic veins are very small and difficult to follow. Left Upper Arterial Axillary Artery: Patent and multiphasic. Brachial Artery: Patent and multiphasic. Radial Artery: Patent and multiphasic. Brachial artery seen distally only due to bandaging Left Upper Venous No evidence of DVT and SVT. Innominate Vein: Patent, spontaneous. Subclavian Vein: Patent, normal phasicity, spontaneous, normal augmentation, compressible. Axillary Vein: Patent, normal phasicity, spontaneous, normal augmentation, compressible. Brachial Vein: Not visualized. Cephalic Vein (Upper Arm): Not visualized. Cephalic Vein (Forearm): Patent, compressible. Basilic Vein (Upper Arm): Not visualized. Basilic Vein (Forearm): Not visualized. Limited visualization of vessels in upper arm due to bandaging from recent surgery. Cephalic and basilic veins are very small and difficult to follow. CV CPACS Progress Noteon 12-06-2024 Progress Note Normal [facility] CBC-Complete Blood Cnt No Di ffon 12-05-2024 Erythrocyte distribution width (RBC) [Ratio] 18.8 % High 11.6-14.6 [facility] Comment on above: Order Comment: 408.2 Performed By: #### L 100.4580, L100.0500 #### [facility] [address] [place], [address] Hematocrit (Bld) [Volume fraction] 22.4 % Low 37-47 [facility] Comment on above: Order Comment: 408.2 Performed By: #### L 100.4500, L100.0500 #### [facility] [address] [place], [address] Hemoglobin (Bld) [Mass/Vol] 7.2 g/dL Low 12.0-15.0 [facility] Comment on above: Order Comment: 408.2 Performed By: #### L 100.4500, L100.0500 #### [facility] [address] [place], [address] MCH (RBC) [Entitic mass] 30.4 pg Normal 27.0-32.0 [facility] Comment on above: Order Comment: 408.2 Performed By: #### L 100.4500, L100.0500 #### [facility] [address] [place], [address] MCHC (RBC) [Mass/Vol] 32.1 g/dL Normal 32-36 [facility] Comment on above: Order Comment: 408.2 Performed By: #### L 100.4500, L100.0500 #### [facility] [address] [place], [address] MCV (RBC) [Entitic vol] 94.5 fL Normal 81-99 [facility] Comment on above: Order Comment: 408.2 Performed By: #### L 100.4500, L100.0500 #### [facility] [address] [place], [address] Platelet mean volume (Bld) [Entitic vol] 10.7 fL Normal 6.2-12.0 [facility] Comment on above: Order Comment: 408.2 Performed By: #### L 100.4500, L100.0500 #### [facility] [address] [place], [address] Platelets (Bld) [#/Vol] 395 10*3/uL Normal 150-450 [facility] Comment on above: Order Comment: 408.2 Performed By: #### L 100.4500, L100.0500 #### [facility] [address] [place], [address] RBC (Bld) [#/Vol] 2.37 10*6/uL Low 4.2-5.4 [facility] Comment on above: Order Comment: 408.2 Performed By: #### L 100.4500, L100.0500 #### [facility] [address] [place], [address] RDW SD 65.1 fl High 35.1-43.9 [facility] Comment on above: Order Comment: 408.2 Performed By: #### L 100.4500, L100.0500 #### [facility] [address] [place], [address] WBC (Bld) [#/Vol] 8.5 10*3/uL Normal 4.4-11.0 [facility] Comment on above: Order Comment: 408.2 Performed By: #### L 100.4500, L100.0500 #### [facility] [address] [place], [address] Differential Commenton 12-05 SMEAR COMMENT COMMENT Normal [facility] Comment on above: Order Comment: 408.2 Result Comment: 2+ A NISO. Performed By: #### L 100.4500, L100.0500 #### [facility] [address] [place], [address] CBC-Complete Blood Cnt No Di ffon 12-01-2024 HCT Normal 37-47 [facility] Comment on above: Order Comment: 408-2 Result Comment: This specimen has been REJECTED due to Laboratory criteria: Clotted. TIANNA RUIZ has been notified of need of recollection. 12/01/24 0856 Aaliyah Huber Performed By: #### L 100.0500 #### [facility] [address] [place], [address] HGB Normal 12.0-15.0 [facility] Comment on above: Order Comment: 408-2 Result Comment: This specimen has been REJECTED due to Laboratory criteria: Clotted. TIANNA RUIZ has been notified of need of recollection. 12/01/24 0856 Aaliyah Huber Performed By: #### L 100.0500 #### [facility] [address] [place], [address] MCH Normal 27.0-32.0 [facility] Comment on above: Order Comment: 408-2 Result Comment: This specimen has been REJECTED due to Laboratory criteria: Clotted. TIANNA RUIZ has been notified of need of recollection. 12/01/24 0856 Aaliyah Huber Performed By: #### L 100.0500 #### [facility] [address] [place], [address] MCHC Normal 32-36 [facility] Comment on above: Order Comment: 408-2 Result Comment: This specimen has been REJECTED due to Laboratory criteria: Clotted. TIANNA RUIZ has been notified of need of recollection. 12/01/24 0856 Aaliyah Huber Performed By: #### L 100.0500 #### [facility] [address] [facility] [address] MCV Normal 81-99 [facility] Comment on above: Order Comment: 408-2 Result Comment: This specimen has been REJECTED due to Laboratory criteria: Clotted. TIANNA RUIZ has been notified of need of recollection. 12/01/24 0856 Aaliyah Huber Performed By: #### L 100.0500 #### [facility] [address] [place], [address] PLT Normal 150-450 [facility] [facility] Comment on above: Order Comment: 408-2 Result Comment: This specimen has been REJECTED due to Laboratory criteria: Clotted. TIANNA RUIZ has been notified of need of recollection. 12/01/24 0856 Aaliyah Huber Performed By: #### L 100.0500 #### [facility] [address] [place], [address] RBC Normal 4.2-5.4 [facility] Comment on above: Order Comment: 408-2 Result Comment: This specimen has been REJECTED due to Laboratory criteria: Clotted. TIANNA RUIZ has been notified of need of recollection. 12/01/24 0856 Aaliyah Huber Performed By: #### L 100.0500 #### [facility] [address] [place], [address] RDW CV Normal 11.6-14.6 [facility] Comment on above: Order Comment: 408-2 Result Comment: This specimen has been REJECTED due to Laboratory criteria: Clotted. TIANNA RUIZ has been notified of need of recollection. 12/01/24 0856 Aaliyah Huber Performed By: #### L 100.0500 #### [facility] [address] [place], [address] RDW SD Normal 35.1-43.9 [facility] Comment on above: Order Comment: 408-2 Result Comment: This specimen has been REJECTED due to Laboratory criteria: Clotted. TIANNA RUIZ has been notified of need of recollection. 12/01/24 0856 Aaliyah Huber Performed By: #### L 100.0500 #### [facility] [address] [place], [address] WBC Normal 4.4-11.0 [facility] Comment on above: Order Comment: 408-2 Result Comment: This specimen has been REJECTED due to Laboratory criteria: Clotted. TIANNA RUIZ has been notified of need of recollection. 12/01/24 0856 Aaliyah Huber Performed By: #### L 100.0500 #### [facility] [address] [place], [address] CBC-Complete Blood Cnt No Di ffon 11-30-2024 Erythrocyte distribution width (RBC) [Ratio] 18.5 % High 11.6-14.6 [facility] Comment on above: Order Comment: 408.2 Performed By: #### L 100.0500 #### [facility] [address] [place], [address] Hematocrit (Bld) [Volume fraction] 21.7 % Low 37-47 [facility] Comment on above: Order Comment: 408.2 Performed By: #### L 100.0500 #### [facility] [address] [place], [address] Hemoglobin (Bld) [Mass/Vol] 6.9 g/dL Low 12.0-15.0 [facility] Comment on above: Order Comment: 408.2 Performed By: #### L 100.0500 #### [facility] [address] [place], [address] MCH (RBC) [Entitic mass] 29.9 pg Normal 27.0-32.0 [facility] Comment on above: Order Comment: 408.2 Performed By: #### L 100.0500 #### [facility] [address] [place], [address] MCHC (RBC) [Mass/Vol] 31.8 g/dL Low 32-36 [facility] Comment on above: Order Comment: 408.2 Performed By: #### L 100.0500 #### [facility] [address] [place], [address] MCV (RBC) [Entitic vol] 93.9 fL Normal 81-99 [facility] Comment on above: Order Comment: 408.2 Performed By: #### L 100.0500 #### [facility] [address] [place], [address] Platelet mean volume (Bld) [Entitic vol] 10.5 fL Normal 6.2-12.0 [facility] Comment on above: Order Comment: 408.2 Performed By: #### L 100.0500 #### [facility] [address] [place], [address] Platelets (Bld) [#/Vol] 342 10*3/uL Normal 150-450 [facility] Comment on above: Order Comment: 408.2 Performed By: #### L 100.0500 #### [facility] [address] [place], [address] RBC (Bld) [#/Vol] 2.31 10*6/uL Low 4.2-5.4 [facility] Comment on above: Order Comment: 408.2 Performed By: #### L 100.0500 #### [facility] [address] [place], [address] RDW SD 63.3 fl High 35.1-43.9 [facility] Comment on above: Order Comment: 408.2 Performed By: #### L 100.0500 #### [facility] [address] [place], [address] WBC (Bld) [#/Vol] 7.0 10*3/uL Normal 4.4-11.0 [facility] Comment on above: Order Comment: 408.2 Performed By: #### L 100.0500 #### [facility] [address] [place], [address] Progress Noteon 11-27-2024 Progress Note Normal [facility] KEPPRA (LEVETIRACETAM)on KEPPRA 18.7 ug/mL Normal 10.0-40.0 [facility] Comment on above: Order Comment: 408-2 Result Comment: Perf ormed at: - [facility] [id number] Special Projects Coordinator: Scott Little MD, Phone: [phone] Performed By: #### L 3310.0000 #### [facility] [place], [address] BASIC METABOLIC PANELon 08-2 0-2024 Anion gap [Moles/Vol] 13 mmol/L Normal 3-13 [facility] Comment on above: Performed By: #### L AB15 ####Detective Chief: DEANN CURRAN ([id number])[facility] ([facility])[address] Calcium [Mass/Vol] 8.4 mg/dL Low 8.8-10.0 [facility] Comment on above: Performed By: #### L AB15 ####Detective Chief: DEANN CURRAN ([id number])[facility] [place] [facility] Chloride [Moles/Vol] 94 mmol/L Low 98-107 [facility] Comment on above: Performed By: #### L AB15 ####Detective Chief: DEANN CURRAN ([id number])[facility] [place] ([facility])[address] CO2 [Moles/Vol] 27 mmol/L Normal 23-31 [facility] Comment on above: Performed By: #### L AB15 ####Detective Chief: DEANN CURRAN ([id number])[facility] [place] ([facility])[address] [place] [address] [place] Creatinine [Mass/Vol] 2.28 mg/dL High 0.57-1.11 [facility] Comment on above: Performed By: #### L AB15 ####Detective Chief: DEANN CURRAN ([id number])[facility] [place] ([facility])[address] [place] [address] [place] GLOMERULAR FILTRATION RATE ML/MIN/1.73 SQ M.PREDICTED 22.0 mL/min/1.73m*2 Low >60.0 [facility] Comment on above: Result Comment: Calc ulation based on the Chronic Kidney Disease Epidemiology Collaboration (CKD-EPI) equation refit without adjustment for race Performed By: #### L AB15 ####Detective Chief: DEANN CURRAN ([id number])[facility] ([facility])[address] Glucose [Mass/Vol] 81 mg/dL Low 82-115 [facility] Comment on above: Performed By: #### L AB15 ####Detective Chief: DEANN CURRAN ([id number])[facility] ([facility])[address] Potassium [Moles/Vol] 3.1 mmol/L Low 3.5-5.1 [facility] Comment on above: Result Comment: [facility] potassium values may be up to 0.5 mmol/L lower than serum values. Performed By: #### L AB15 ####Detective Chief: DEANN CURRAN ([id number])[facility] ([facility])[address] Sodium [Moles/Vol] 134 mmol/L Low 136-145 [facility] Comment on above: Performed By: #### L AB15 ####Detective Chief: DEANN CURRAN ([id number])[facility] ([facility])[address] Urea nitrogen [Mass/Vol] 10 mg/dL Normal - [facility] Comment on above: Performed By: #### L AB15 ####Detective Chief: DEANN CURRAN ([id number])[facility] ([facility])[address] BLOOD TYPE AND SCREEN GELon 11-22-2024 ABO GROUPING O Normal [facility] Comment on above: Performed By: #### L [id number] ####Detective Chief: DEANN CURRAN ([id number])[facility] ([facility])[address] RH TYPE IN BLOOD Positive Normal [facility] Comment on above: Performed By: #### L [id number] ####Detective Chief: DEANN CURRAN ([id number])[facility] ([facility])[address] [place] [id number] [facility] Basic metabolic 1998 panelon 11-22-2024 Anion gap [Moles/Vol] 13 mmol/L 3 - 13 mmol/L [facility] Calcium [Mass/Vol] 8.4 mg/dL Low 8.8 - 10. 0 mg/dL [facility] Chloride [Moles/Vol] 94 mmol/L Low 98 - 10 7 mmol/L [facility] CO2 [Moles/Vol] 27 mmol/L 23 - 31 mmol/L [facility] Creatinine [Mass/Vol] 2.28 mg/dL High 0.57 - 1.11 mg/dL [facility] GFR/1.73 sq M.predicted (S/P/Bld) [Vol rate/Area] 22 mL/min Low - PINF [facility] Comment on above: Calculation based on the Chronic Kidney Disease Epidemiology Collaboration (CKD-EPI) equation refit without adjustment for race Glucose [Mass/Vol] 81 mg/dL Low 82 - 115 mg/dL [facility] Interpretation and review of laboratory results Abnormal [facility] Potassium [Moles/Vol] 3.1 mmol/L Low 3.5 - 5.1 mmol/L [facility] Comment on above: Plasma potassium bhaskar ues may be up to 0.5 mmol/L lower than serum values. Sodium [Moles/Vol] 134 mmol/L Low 136 - 145 mmol/L [facility] Urea nitrogen [Mass/Vol] 10 mg/dL 9 - 23 mg/dL [facility] Blood type and Crossmatch pa kojo (Bld)on 11-22-2024 ABO group Nom (Bld) O [facility] Blood group antibody screen GEL Ql Negative [facility] D Ag Ql (RBC) Positive [facility] CBC W Auto Differential pane l (Bld)on 11-22-2024 Basophils (Bld) [#/Vol] 0.2 10*3/uL 0.0 - 0.2 10*3/uL [facility] Basophils/100 WBC (Bld) 2.3 % High 0.0 - 2.0 % [facility] Eosinophils (Bld) [#/Vol] 0.4 10*3/uL 0.0 - 0.5 10*3/uL [facility] Eosinophils/100 WBC (Bld) 4.2 % 0.0 - 6.0 % [facility] Erythrocyte distribution width (RBC) [Ratio] 17.8 % High 11.5 - 15.0 % [facility] Hematocrit (Bld) [Volume fraction] 23.9 % Low 35.0 - 47.0 % [facility] Hemoglobin (Bld) [Mass/Vol] 7.8 g/dL Low 11.7 - 16.0 g/dL [facility] Immature granulocytes (Bld) [#/Vol] 0 10*3/uL NINF - 0.1 10*3/uL [facility] Immature granulocytes/100 WBC (Bld) 0.5 % 0.0 - 2.0 % [facility] Interpretation and review of laboratory results Abnormal [facility] IPF 3 [facility] Lymphocytes (Bld) [#/Vol] 1.6 10*3/uL 1.0 - 4.3 10*3/uL [facility] Lymphocytes/100 WBC (Bld) 18.4 % 15.0 - 45.0 % [facility] MCH (RBC) [Entitic mass] 29.8 pg 26.0 - 34.0 pg [facility] MCHC (RBC) [Mass/Vol] 32.6 % 30.5 - 36.0 % [facility] MCV (RBC) [Entitic vol] 91.2 fL 77.0 - 99.0 fL [facility] Monocytes (Bld) [#/Vol] 0.8 10*3/uL 0.0 - 0.9 10*3/uL [facility] Monocytes/100 WBC (Bld) 9.3 % 5.0 - 13.0 % [facility] Neutrophils (Bld) [#/Vol] 5.6 10*3/uL 1.8 - 7.5 10*3/uL [facility] Neutrophils/100 WBC (Bld) 65.3 % 38.0 - 82.0 % [facility] Nucleated RBC/100 WBC (Bld) [Ratio] 0 % [facility] Platelet mean volume (Bld) [Entitic vol] 10.3 fL 9.0 - 12.7 fL [facility] Platelets (Bld) [#/Vol] 575 10*3/uL High 140 - 440 10*3/uL [facility] RBC (Bld) [#/Vol] 2.62 10*6/uL Low 3.80 - 5.2 0 10*6/uL [facility] WBC (Bld) [#/Vol] 8.6 10*3/uL 3.6 - 10.7 10*3/uL [facility] CBC WITH AUTO DIFFERENTIALon 11-22-2024 Basophils (Bld) [#/Vol] 0.2 10*3/uL Normal 0.0-0.2 [facility] Comment on above: Performed By: #### L [id number] ####Detective Chief: DEANN CURRAN ([id number])[facility] [place] ([facility])[address] [place] [address] Basophils/100 WBC (Bld) 2.3 % High 0.0-2.0 [facility] Comment on above: Performed By: #### L [id number] ####Detective Chief: DEANN CURRAN ([id number])[facility] [place] ([facility])[address] Eosinophils (Bld) [#/Vol] 0.4 10*3/uL Normal 0.0-0.5 [facility] Comment on above: Performed By: #### L [id number] ####Detective Chief: DEANN CURRAN ([id number])[facility] [place] ([facility])[address] Eosinophils/100 WBC (Bld) 4.2 % Normal 0.0-6.0 [facility] Comment on above: Performed By: #### L [id number] ####Detective Chief: DEANN CURRAN ([id number])[facility] [place] ([facility])[address] Erythrocyte distribution width (RBC) [Ratio] 17.8 % High 11.5-15.0 [facility] Comment on above: Performed By: #### L [id number] ####Detective Chief: DEANN CURRAN ([id number])[facility] [place] ([facility])[address] Hematocrit (Bld) [Volume fraction] 23.9 % Low 35.0-47.0 [facility] Comment on above: Performed By: #### L [id number] ####Detective Chief: DEANN FERNANDESRYLEE ([phone])[facility] [place] ([facility])[address] Hemoglobin (Bld) [Mass/Vol] 7.8 g/dL Low 11.7-16.0 [facility] Comment on above: Performed By: #### L [id number] ####Detective Chief: DEANN FERNANDESRYLEE ([id number])[facility] [place] ([facility])[address] IMMATURE GRANS % 0.5 % Normal 0.0-2.0 [facility] Comment on above: Performed By: #### L [id number] ####Detective Chief: DEANN FERNANDESRYLEE ([id number])[facility] [place] ([facility])[address] IMMATURE GRANS ABSOLUTE 0.0 10*3/uL Normal <0.1 [facility] Comment on above: Performed By: #### L [id number] ####Detective Chief: DEANN FERNANDESRYLEE ([id number])[facility] [place] ([facility])[address] IPF 3 Normal [facility] Comment on above: Performed By: #### L [id number] ####Detective Chief: DEANN FERNANDESRYLEE ([id number])[facility] [place] ([facility])[address] [place] [address] [place] Lymphocytes (Bld) [#/Vol] 1.6 10*3/uL Normal 1.0-4.3 [facility] Comment on above: Performed By: #### L [id number] ####Detective Chief: DEANN CURRAN ([id number])[facility] [place] ([facility])[address] Lymphocytes/100 WBC (Bld) 18.4 % Normal 15.0-45.0 [facility] Comment on above: Performed By: #### L [id number] ####Detective Chief: DEANN CURRAN ([id number])[facility] [place] ([facility])[address] MCH (RBC) [Entitic mass] 29.8 pg Normal 26.0-34.0 [facility] Comment on above: Performed By: #### L [id number] ####Detective Chief: DEANN CURRAN ([phone])[facility])[address] MCHC 32.6 % Normal 30.5-36.0 [facility] Comment on above: Performed By: #### L [id number] ####Detective Chief: DEANN CURRAN ([id number])[facility])[address] MCV (RBC) [Entitic vol] 91.2 fL Normal 77.0-99.0 [facility] Comment on above: Performed By: #### L [id number] ####Detective Chief: DEANN CURRAN ([id number])[facility] [place] ([facility])[address] [place] [address] Monocytes (Bld) [#/Vol] 0.8 10*3/uL Normal 0.0-0.9 [facility] Comment on above: Performed By: #### L [id number] ####Detective Chief: DEANN CURRAN ([id number])[facility] [place] ([facility])[address] Monocytes/100 WBC (Bld) 9.3 % Normal 5.0-13.0 [facility] Comment on above: Performed By: #### L [id number] ####Detective Chief: DEANN CURRAN ([id number])[facility] [place] ([facility])[address] NEUTROPHILS ABSOLUTE 5.6 10*3/uL Normal 1.8-7.5 [facility] Comment on above: Performed By: #### L [id number] ####Detective Chief: DEANN CURRAN ([id number])[facility] [place] ([facility])[address] Neutrophils/100 WBC (Bld) 65.3 % Normal 38.0-82.0 [facility] Comment on above: Performed By: #### L [id number] ####Detective Chief: DEANN CURRAN ([id number])[facility] [place] ([facility])[address] NRBC 0.0 /100 WBCs Normal 0.0-2.0 [facility] Comment on above: Performed By: #### L [id number] ####Detective Chief: DEANN CURRAN ([id number])[facility] [place] ([facility])[address] Platelet mean volume (Bld) [Entitic vol] 10.3 fL Normal 9.0-12.7 [facility] Comment on above: Performed By: #### L [id number] ####Detective Chief: DEANN CURRAN ([id number])[facility] [place] ([facility])[address] Platelets (Bld) [#/Vol] 575 10*3/uL High 140-440 [facility] Comment on above: Performed By: #### L [id number] ####Detective Chief: DEANN CURRAN ([id number])[facility] [place] ([facility])[address] RBC (Bld) [#/Vol] 2.62 10*6/uL Low 3.80-5.20 [facility] Comment on above: Performed By: #### L [id number] ####Detective Chief: DEANN CURRAN ([id number])[facility] [place] ([facility])[address] WBC (Bld) [#/Vol] 8.6 10*3/uL Normal 3.6-10.7 [facility] Comment on above: Performed By: #### L [id number] ####Detective Chief: DEANN CURRAN ([id number])[facility] ([facility])[address] ED Nursing Noteon 11-22-2024 ED Nursing Note Called [facility] [phone]. Spoke with CYNTHIA Perry. Advised pt sent in from dialysis for low hgb of 6.5, [facility] ED hgb 7.8. pt stable and will be sent back. Normal [facility] ED Provider Noteon ED Provider Note [facility] Progress Noteon 11-16-[address] [facility] [id number] 11-15-2024 [id number] Prison/SNF - N [address] [phone] [id number] Patient/Family Choice [facility] [phone] [facility] [id number] MAR & Discharge med list transmitted to [facility] via [facility]port per TCC request. Electronically signed by JASPREET Verdin [facility] [id number] [facility] Nursing Noteon 11-15-2024 Nursing Note Report called to david dunn at [facility]. All questions answered. 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 Normal [facility] Progress Noteon 11-15-[address] [facility] Consulton 11-14-[address] [facility] [id number] 11-13-[id number] [facility] [id number] Patient is from a SN F. 30 day readmission is not warranted. [facility] BASIC METABOLIC PANELon 08- Anion gap [Moles/Vol] 11 mmol/L Normal 3-13 [facility] Comment on above: Performed By: #### L AB15 ####Detective Chief: PHILLY FRANCO ([id number])[facility] ([facility])[address] [place] [address] Calcium [Mass/Vol] 7.6 mg/dL Low 8.8-10.0 [facility] Comment on above: Performed By: #### L AB15 ####Detective Chief: PHILLY FRANCO ([phone])[facility] ([facility])[address] [place] [address] Chloride [Moles/Vol] 103 mmol/L Normal 98-107 [facility] Comment on above: Performed By: #### L AB15 ####Detective Chief: PHILLY FRANCO ([phone])[facility] ([facility])[address] [place] [address] CO2 [Moles/Vol] 23 mmol/L Normal 23-31 [facility] Comment on above: Performed By: #### L AB15 ####Detective Chief: PHILLY FRANCO ([id number])[facility] ([facility])[address] [place] [address] Creatinine [Mass/Vol] 3.51 mg/dL High 0.57-1.11 [facility] Comment on above: Performed By: #### L AB15 ####Detective Chief: PHILLY FRANCO ([id number])[facility] ([facility])[address] [place] [address] [place] GLOMERULAR FILTRATION RATE ML/MIN/1.73 SQ M.PREDICTED 13.1 mL/min/1.73m*2 Low >60.0 [facility] Comment on above: Result Comment: Calc ulation based on the Chronic Kidney Disease Epidemiology Collaboration (CKD-EPI) equation refit without adjustment for race Performed By: #### L AB15 ####Detective Chief: PHILLY FRANCO ([id number])[facility] ([facility])[address] [place] [address] [place] Glucose [Mass/Vol] 62 mg/dL Low 82-115 [facility] Comment on above: Performed By: #### L AB15 ####Detective Chief: PHILLY FRANCO ([id number])[facility] ([facility])[address] [place] [address] Potassium [Moles/Vol] 4.0 mmol/L Normal 3.5-5.1 [facility] Comment on above: Result Comment: [facility] potassium values may be up to 0.5 mmol/L lower than serum values. Performed By: #### L AB15 ####Detective Chief: PHILLY FRANCO ([phone])[facility] [place] [address] Sodium [Moles/Vol] 137 mmol/L Normal 136-145 [facility] Comment on above: Performed By: #### L AB15 ####Detective Chief: PHILLY FRANCO ([id number])[facility] [place] [address] Urea nitrogen [Mass/Vol] 16 mg/dL Normal 9-23 [facility] Comment on above: Performed By: #### L AB15 ####Detective Chief: PHILLY FRANCO ([phone])[facility] [place] [address] Basic metabolic 1998 panelon 11-13-2024 Anion gap [Moles/Vol] 11 mmol/L 3 - 13 mmol/L [facility] Calcium [Mass/Vol] 7.6 mg/dL Low 8.8 - 10. 0 mg/dL [facility] Chloride [Moles/Vol] 103 mmol/L 98 - 10 7 mmol/L [facility] CO2 [Moles/Vol] 23 mmol/L 23 - 31 mmol/L [facility] Creatinine [Mass/Vol] 3.51 mg/dL High 0.57 - 1.11 mg/dL [facility] GFR/1.73 sq M.predicted (S/P/Bld) [Vol rate/Area] 13.1 mL/min Low - PINF [facility] Comment on above: Calculation based on the Chronic Kidney Disease Epidemiology Collaboration (CKD-EPI) equation refit without adjustment for race Glucose [Mass/Vol] 62 mg/dL Low 82 - 115 mg/dL [facility] Interpretation and review of laboratory results Abnormal [facility] Potassium [Moles/Vol] 4 mmol/L 3.5 - 5.1 mmol/L [facility] Comment on above: Plasma potassium bhaskar ues may be up to 0.5 mmol/L lower than serum values. Sodium [Moles/Vol] 137 mmol/L 136 - 145 mmol/L [facility] Urea nitrogen [Mass/Vol] 16 mg/dL 9 - 23 mg/dL [facility] CBC W Auto Differential pane l (Bld)Ordered By: Andre Ervin on 11-13-2024 Basophils (Bld) [#/Vol] 0.1 10*3/uL 0.0 - 0.2 10*3/uL [facility] Basophils/100 WBC (Bld) 1.3 % 0.0 - 2.0 % [facility] Eosinophils (Bld) [#/Vol] 0.7 10*3/uL High 0.0 - 0.5 10*3/uL [facility] Eosinophils/100 WBC (Bld) 7.3 % High 0.0 - 6.0 % [facility] Erythrocyte distribution width (RBC) [Ratio] 17 % High 11.5 - 15.0 % [facility] Hematocrit (Bld) [Volume fraction] 22.7 % Low 35.0 - 47.0 % [facility] Hemoglobin (Bld) [Mass/Vol] 7.1 g/dL Low 11.7 - 16.0 g/dL [facility] Immature granulocytes (Bld) [#/Vol] 0.1 10*3/uL High NINF - 0.1 10*3/uL [facility] Immature granulocytes/100 WBC (Bld) 1.1 % 0.0 - 2.0 % [facility] Interpretation and review of laboratory results Abnormal [facility] System Lymphocytes (Bld) [#/Vol] 1.9 10*3/uL 1.0 - 4.3 10*3/uL [facility] Lymphocytes/100 WBC (Bld) 19.1 % 15.0 - 45.0 % [facility] MCH (RBC) [Entitic mass] 28.7 pg 26.0 - 34.0 pg [facility] MCHC (RBC) [Mass/Vol] 31.3 % 30.5 - 36.0 % [facility] MCV (RBC) [Entitic vol] 91.9 fL 77.0 - 99.0 fL [facility] Monocytes (Bld) [#/Vol] 0.9 10*3/uL 0.0 - 0.9 10*3/uL [facility] Monocytes/100 WBC (Bld) 8.7 % 5.0 - 13.0 % [facility] Neutrophils (Bld) [#/Vol] 6.3 10*3/uL 1.8 - 7.5 10*3/uL [facility] Neutrophils/100 WBC (Bld) 62.5 % 38.0 - 82.0 % [facility] Nucleated RBC/100 WBC (Bld) [Ratio] 0 % [facility] Platelet mean volume (Bld) [Entitic vol] 10.3 fL 9.0 - 12.7 fL [facility] Platelets (Bld) [#/Vol] 495 10*3/uL High 140 - 440 10*3/uL [facility] RBC (Bld) [#/Vol] 2.47 10*6/uL Low 3.80 - 5.2 0 10*6/uL [facility] WBC (Bld) [#/Vol] 10.1 10*3/uL 3.6 - 10.7 10*3/uL [facility] CBC WITH AUTO DIFFERENTIALon 11-13-2024 Basophils (Bld) [#/Vol] 0.1 10*3/uL Normal 0.0-0.2 [facility] Comment on above: Performed By: #### L [id number] ####Detective Chief: PHILLY FRANCO ([phone])[address] Basophils/100 WBC (Bld) 1.3 % Normal 0.0-2.0 [facility] Comment on above: Performed By: #### L [id number] ####Detective Chief: PHILLY [phone])[facility] ([facility])[address] [place] [address] Eosinophils (Bld) [#/Vol] 0.7 10*3/uL High 0.0-0.5 [facility] Comment on above: Performed By: #### L [id number] ####Detective Chief: PHILLY [phone])[facility] [address] Eosinophils/100 WBC (Bld) 7.3 % High 0.0-6.0 [facility] Comment on above: Performed By: #### L [id number] ####Detective Chief: PHILLY RFANCO ([phone])[facility])[address] [place] [address] Erythrocyte distribution width (RBC) [Ratio] 17.0 % High 11.5-15.0 [facility] Comment on above: Performed By: #### L [id number] ####Detective Chief: PHILLY FRANCO ([phone])[address] Hematocrit (Bld) [Volume fraction] 22.7 % Low 35.0-47.0 [facility] Comment on above: Performed By: #### L [id number] ####Detective Chief: PHILLY FRANCO ([phone])[facility])[address] [place] [address] Hemoglobin (Bld) [Mass/Vol] 7.1 g/dL Low 11.7-16.0 [facility] Comment on above: Performed By: #### L [id number] ####Detective Chief: PHILLY FRANCO ([phone])[address] IMMATURE GRANS % 1.1 % Normal 0.0-2.0 [facility] Comment on above: Performed By: #### L [id number] ####Detective Chief: PHILLY FRANCO ([phone])[facility])[address] [place] [address] IMMATURE GRANS ABSOLUTE 0.1 10*3/uL High <0.1 [facility] Comment on above: Performed By: #### L [id number] ####Detective Chief: PHILLY FRANCO ([phone])[facility])[address] [place] [address] Lymphocytes (Bld) [#/Vol] 1.9 10*3/uL Normal 1.0-4.3 [facility] Comment on above: Performed By: #### L [id number] ####Detective Chief: PHILLY FRANCO ([phone])[facility])[address] [place] [address] Lymphocytes/100 WBC (Bld) 19.1 % Normal 15.0-45.0 [facility] Comment on above: Performed By: #### L [id number] ####Detective Chief: PHILLY FRANCO ([phone])[facility] ([facility])[address] [place] [address] MCH (RBC) [Entitic mass] 28.7 pg Normal 26.0-34.0 [facility] Comment on above: Performed By: #### L [id number] ####Detective Chief: PHILLY FRANCO ([phone])[facility])[address] [place] [address] MCHC 31.3 % Normal 30.5-36.0 [facility] Comment on above: Performed By: #### L [id number] ####Detective Chief: PHILLY FRANCO ([phone])[facility])[address] [place] [address] MCV (RBC) [Entitic vol] 91.9 fL Normal 77.0-99.0 [facility] Comment on above: Performed By: #### L [id number] ####Detective Chief: PHILLY FRANCO ([phone])[facility])[address] [place] [address] Monocytes (Bld) [#/Vol] 0.9 10*3/uL Normal 0.0-0.9 [facility] Comment on above: Performed By: #### L [id number] ####Detective Chief: PHILLY FRANCO ([phone])[facility])[address] [place] [address] Monocytes/100 WBC (Bld) 8.7 % Normal 5.0-13.0 [facility] Comment on above: Performed By: #### L [id number] ####Detective Chief: PHILLY FRANCO ([phone])[facility] ([facility])[address] [place] [address] NEUTROPHILS ABSOLUTE 6.3 10*3/uL Normal 1.8-7.5 [facility] Comment on above: Performed By: #### L [id number] ####Detective Chief: PHILLY FRANCO ([phone])[facility] ([facility])[address] [place] [address] Neutrophils/100 WBC (Bld) 62.5 % Normal 38.0-82.0 [facility] Comment on above: Performed By: #### L [id number] ####Detective Chief: PHILLY FRANCO ([phone])[facility] ([facility])[address] [place] [address] NRBC 0.0 /100 WBCs Normal 0.0-2.0 [facility] Comment on above: Performed By: #### L [id number] ####Detective Chief: PHILLY FRANCO ([phone])[facility] ([facility])[address] [place] [address] Platelet mean volume (Bld) [Entitic vol] 10.3 fL Normal 9.0-12.7 [facility] Comment on above: Performed By: #### L [id number] ####Detective Chief: PHILLY FRANCO ([phone])[facility] ([facility])[address] [place] [address] [place] Platelets (Bld) [#/Vol] 495 10*3/uL High 140-440 [facility] Comment on above: Performed By: #### L [id number] ####Detective Chief: PHILLY FRANCO ([phone])[facility] ([facility])[address] [place] [address] [place] RBC (Bld) [#/Vol] 2.47 10*6/uL Low 3.80-5.20 [facility] Comment on above: Performed By: #### L [id number] ####Detective Chief: PHILLY FRANCO ([phone])[facility] ([facility])[address] [place] [address] WBC (Bld) [#/Vol] 10.1 10*3/uL Normal 3.6-10.7 [facility] Comment on above: Performed By: #### L [id number] ####Detective Chief: PHILLY FRANCO ([phone])[facility] ([facility])[address] [place] [address] Consulton 11-13-2024 Consult Normal [facility] HEMOGLOBIN AND HEMATOCRIT, B LOODon 11-13-2024 Hematocrit (Bld) [Volume fraction] 23.2 % Low 35.0-47.0 [facility] Comment on above: Performed By: #### L [id number] ####Detective Chief: PHILLY FRANCO ([phone])[facility] ([facility])[address] [place] [address] Hemoglobin (Bld) [Mass/Vol] 7.2 g/dL Low 11.7-16.0 [facility] Comment on above: Performed By: #### L [id number] ####Detective Chief: PHILLY FRANCO ([phone])[facility] ([facility])[address] [place] [address] Hemoglobin (Bld) [Mass/Vol]o n 11-13-2024 Hematocrit (Bld) [Volume fraction] 23.2 % Low 35.0 - 47.0 % [facility] Interpretation and review of laboratory results Abnormal [facility] - Chemistry and C hemistry - challengeon 11-13-2024 Glucose [Mass/Vol] 81 mg/dL 70 - 100 mg/dL [facility] Glucose [Mass/Vol] 64 mg/dL Low 70 - 100 mg/dL [facility] Laboratory - Hematology and Cell countson 11-13-2024 Hemoglobin (Bld) [Mass/Vol] 7.2 g/dL Low 11.7 - 16.0 g/dL [facility] No Panel Informationon 11-13 Interpretation and review of laboratory results Normal [facility] Performed by: [place] [address] CLIA ID: [id number] [facility] Interpretation and review of laboratory results Abnormal [facility] Performed by: [facility], [address] [place] [id number] CLIA ID: [id number] [facility] Progress Noteon 11-13-2024 Progress Note Normal [facility] Progress Note Normal [facility] BASIC METABOLIC PANELon 11-03 Anion gap [Moles/Vol] 12 mmol/L Normal 3-13 [facility] Comment on above: Performed By: #### L AB15 ####Detective Chief: DEANN CURRAN ([phone])[facility] [place] ([facility])[address] Calcium [Mass/Vol] 8.1 mg/dL Low 8.8-10.0 [facility] Comment on above: Performed By: #### L AB15 ####Detective Chief: DEANN CURRAN ([phone])[facility] [place] ([facility])[address] Chloride [Moles/Vol] 104 mmol/L Normal 98-107 [facility] Comment on above: Performed By: #### L AB15 ####Detective Chief: DEANN CURRAN ([phone])[facility] [place] ([facility])[address] CO2 [Moles/Vol] 24 mmol/L Normal 23-31 [facility] Comment on above: Performed By: #### L AB15 ####Detective Chief: DEANN CURRAN ([phone])[facility] [place] ([facility])[address] Creatinine [Mass/Vol] 3.37 mg/dL High 0.57-1.11 [facility] Comment on above: Performed By: #### L AB15 ####Detective Chief: DEANN CURRAN ([phone])[facility] ([facility])[address] GLOMERULAR FILTRATION RATE ML/MIN/1.73 SQ M.PREDICTED 13.8 mL/min/1.73m*2 Low >60.0 [facility] Comment on above: Result Comment: Calc ulation based on the Chronic Kidney Disease Epidemiology Collaboration (CKD-EPI) equation refit without adjustment for race Performed By: #### L AB15 ####Detective Chief: DEANN CURRAN ([phone])[facility] [place] ([facility])[address] Glucose [Mass/Vol] 78 mg/dL Low 82-115 [facility] Comment on above: Performed By: #### L AB15 ####Detective Chief: DEANN CURRAN ([phone])[facility] ([facility])[address] Potassium [Moles/Vol] 4.0 mmol/L Normal 3.5-5.1 [facility] Comment on above: Result Comment: [facility] potassium values may be up to 0.5 mmol/L lower than serum values. Performed By: #### L AB15 ####Detective Chief: DEANN CURRAN ([phone])[facility] ([facility])[address] Sodium [Moles/Vol] 140 mmol/L Normal 136-145 [facility] Comment on above: Performed By: #### L AB15 ####Detective Chief: DEANN CURRAN ([phone])[facility] ([facility])[address] Urea nitrogen [Mass/Vol] 15 mg/dL Normal 9-23 [facility] Comment on above: Performed By: #### L AB15 ####Detective Chief: DEANN CURRAN ([phone])[facility] ([facility])[address] Basic metabolic 1998 panelon 11-12-2024 Anion gap [Moles/Vol] 12 mmol/L 3 - 13 mmol/L [facility] Calcium [Mass/Vol] 8.1 mg/dL Low 8.8 - 10. 0 mg/dL [facility] Chloride [Moles/Vol] 104 mmol/L 98 - 10 7 mmol/L [facility] CO2 [Moles/Vol] 24 mmol/L 23 - 31 mmol/L [facility] Creatinine [Mass/Vol] 3.37 mg/dL High 0.57 - 1.11 mg/dL [facility] GFR/1.73 sq M.predicted (S/P/Bld) [Vol rate/Area] 13.8 mL/min Low - PINF [facility] Comment on above: Calculation based on the Chronic Kidney Disease Epidemiology Collaboration (CKD-EPI) equation refit without adjustment for race Glucose [Mass/Vol] 78 mg/dL Low 82 - 115 mg/dL [facility] Interpretation and review of laboratory results Abnormal [facility] Potassium [Moles/Vol] 4 mmol/L 3.5 - 5.1 mmol/L [facility] Comment on above: Plasma potassium bhaskar ues may be up to 0.5 mmol/L lower than serum values. Sodium [Moles/Vol] 140 mmol/L 136 - 145 mmol/L [facility] Urea nitrogen [Mass/Vol] 15 mg/dL 9 - 23 mg/dL [facility] CBC W Auto Differential pane l (Bld)Ordered By: Mona Huston on 11-12-2024 Erythrocyte distribution width (RBC) [Ratio] 17 % High 11.5 - 15.0 % [facility] Hematocrit (Bld) [Volume fraction] 29 % Low 35.0 - 47.0 % [facility] Hemoglobin (Bld) [Mass/Vol] 9.3 g/dL Low 11.7 - 16.0 g/dL [facility] IPF 4 [facility] MCH (RBC) [Entitic mass] 29.2 pg 26.0 - 34.0 pg [facility] MCHC (RBC) [Mass/Vol] 32.1 % 30.5 - 36.0 % [facility] MCV (RBC) [Entitic vol] 91.2 fL 77.0 - 99.0 fL [facility] Platelet mean volume (Bld) [Entitic vol] 10.5 fL 9.0 - 12.7 fL [facility] Platelets (Bld) [#/Vol] 407 10*3/uL 140 - 440 10*3/uL [facility] RBC (Bld) [#/Vol] 3.18 10*6/uL Low 3.80 - 5.2 0 10*6/uL [facility] WBC (Bld) [#/Vol] 10.9 10*3/uL High 3.6 - 10.7 10*3/uL [facility] CBC WITH AUTO DIFFERENTIALon 11-12-2024 Erythrocyte distribution width (RBC) [Ratio] 17.0 % High 11.5-15.0 [facility] Comment on above: Performed By: #### L [id number], [id number] ####Detective Chief: DEANN CURRAN ([phone])[facility] ([facility])[address] Hematocrit (Bld) [Volume fraction] 29.0 % Low 35.0-47.0 [facility] Comment on above: Performed By: #### L [id number], [id number] ####Detective Chief: DEANN CURRAN ([phone])[facility] ([facility])[address] [place] [address] Hemoglobin (Bld) [Mass/Vol] 9.3 g/dL Low 11.7-16.0 [facility] Comment on above: Performed By: #### L [id number], [id number] ####Detective Chief: DEANN CURRAN ([phone])[facility] IPF 4 Normal [facility] Comment on above: Performed By: #### L [id number], [id number] ####Detective Chief: DEANN CURRAN ([phone])[facility])[address] [place] [address] MCH (RBC) [Entitic mass] 29.2 pg Normal 26.0-34.0 [facility] Comment on above: Performed By: #### L [id number], [id number] ####Detective Chief: DEANN CURRAN ([phone])[facility] ([facility])[address] MCHC 32.1 % Normal 30.5-36.0 [facility] Comment on above: Performed By: #### L [id number], [id number] ####Detective Chief: DEANN CURRAN ([phone])[facility] [place] ([facility])[address] MCV (RBC) [Entitic vol] 91.2 fL Normal 77.0-99.0 [facility] Comment on above: Performed By: #### L [id number], [id number] ####Detective Chief: DEANN CURRAN ([id number])[facility] [place] ([facility])[address] Platelet mean volume (Bld) [Entitic vol] 10.5 fL Normal 9.0-12.7 [facility] Comment on above: Performed By: #### L [id number], [id number] ####Detective Chief: DEANN CURRAN ([phone])[facility] [place] ([facility])[address] Platelets (Bld) [#/Vol] 407 10*3/uL Normal 140-440 [facility] Comment on above: Performed By: #### L [id number], [id number] ####Detective Chief: DEANN CURRAN ([phone])[facility] [place] ([facility])[address] RBC (Bld) [#/Vol] 3.18 10*6/uL Low 3.80-5.20 [facility] Comment on above: Performed By: #### L [id number], [id number] ####Detective Chief: DEANN CURRAN ([phone])[facility] [place] ([facility])[address] [place] [address] [place] WBC (Bld) [#/Vol] 10.9 10*3/uL High 3.6-10.7 [facility] Comment on above: Performed By: #### L [id number], [id number] ####Detective Chief: DEANN CURRAN ([phone])[facility] [place] ([facility])[address] [place] [address] [place] Consulton 11-12-2024 Consult Normal [facility] ED Nursing Noteon 11-12-2024 ED Nursing Note Moody Harman at bedside for transport to [facility] for admission. Packet/blue card sent with crew. Normal [facility] ED Nursing Note Report called to Fawad rouse, RN 1 [facility]. Pt awaiting transport, resting comfortably at this time, side rails up x2, curtain remains open for safety. Normal [facility] ED Provider Noteon ED Provider Note Normal [facility] MANUAL DIFFERENTIALon 2024 ANISOCYTOSIS PRESENCE IN BLOOD BY LIGHT MICROSCOPY Moderate Abnormal (none) [facility] Comment on above: Performed By: #### L [id number], [id number] ####Detective Chief: DEANN CURRAN ([phone])[facility] [place] ([facility])[address] [place] [address] [place] BASOPHILS (10*3/UL) IN BLOOD BY MANUAL COUNT 0.1 10*3/uL Normal 0.0-0.2 [facility] Comment on above: Performed By: #### L [id number], [id number] ####Detective Chief: DEANN CURRAN ([phone])[facility] [place] ([facility])[address] [place] [address] [place] BASOPHILS TOTAL PER COUNTED LEUKOCYTES BY MANUAL COUNT 1 Normal [facility] Comment on above: Performed By: #### L [id number], [id number] ####Detective Chief: DEANN CURRAN ([phone])[facility] [place] ([facility])[address] [place] [address] [place] BASOPHILS/100 LEUKOCYTES IN BLOOD BY MANUAL COUNT 1 % Normal 0-2 [facility] Comment on above: Performed By: #### L [id number], [id number] ####Detective Chief: DEANN CURRAN ([phone])[facility] [place] ([facility])[address] [place] [address] [place] CHERI CELLS PRESENCE IN BLOOD BY LIGHT MICROSCOPY Rare Abnormal (none) [facility] Comment on above: Performed By: #### L [id number], [id number] ####Detective Chief: DEANN CURRAN ([phone])[facility] [place] ([facility])[address] [place] [address] [place] CELLS COUNTED TOTAL (#) IN BLOOD 100 Normal [facility] Comment on above: Performed By: #### L [id number], [id number] ####Detective Chief: DEANN FERNANDESRYLEE ([phone])[facility] [place] ([facility])[address] DIFFERENTIAL METHOD Manual differential performed Normal [facility] Comment on above: Performed By: #### L [id number], [id number] ####Detective Chief: DEANN CURRAN ([phone])[facility] [place] ([facility])[address] [place] [address] [place] EOSINOPHILS (10*3/UL) IN BLOOD BY MANUAL COUNT 0.3 10*3/uL Normal 0.0-0.5 [facility] Comment on above: Performed By: #### L [id number], [id number] ####Detective Chief: DEANN CURRAN ([phone])[facility] [place] ([facility])[address] [place] [address] [place] EOSINOPHILS TOTAL PER COUNTED LEUKOCYTES BY MANUAL COUNT 3 High 0-1 [facility] Comment on above: Performed By: #### L [id number], [id number] ####Detective Chief: DEANN CURRAN ([phone])[facility] [place] ([facility])[address] [place] [address] [place] EOSINOPHILS/100 LEUKOCYTES IN BLOOD BY MANUAL COUNT 3 % Normal 0-6 [facility] Comment on above: Performed By: #### L [id number], [id number] ####Detective Chief: DEANN CURRAN ([phone])[facility] [place] ([facility])[address] [place] [address] [place] LEUKOCYTE MORPHOLOGY FINDING IN BLOOD Normal Normal [facility] Comment on above: Performed By: #### L [id number], [id number] ####Detective Chief: DEANN CURRAN ([phone])[facility] [place] ([facility])[address] [place] [address] [place] LEUKOCYTES (10*3/UL) NUCLEATED ERYTHROCYTE ADJUST 10.9 10*3/uL High 3.6-10.7 [facility] Comment on above: Performed By: #### L [id number], [id number] ####Detective Chief: DEANN CURRAN ([phone])[facility] [place] ([facility])[address] [place] [address] [place] LYMPHOCYTES (10*3/UL) IN BLOOD BY MANUAL COUNT 1.3 10*3/uL Normal 1.0-4.3 [facility] Comment on above: Performed By: #### L [id number], [id number] ####Detective Chief: DEANN CURRAN ([phone])[facility] [place] ([facility])[address] LYMPHOCYTES TOTAL PER COUNTED LEUKOCYTES BY MANUAL COUNT 12 Normal [facility] Comment on above: Performed By: #### L [id number], [id number] ####Detective Chief: DEANN CURRAN ([phone])[facility] [place] ([facility])[address] [place] [address] [place] LYMPHOCYTES/100 LEUKOCYTES IN BLOOD BY MANUAL COUNT 12 % Low 15-45 [facility] Comment on above: Performed By: #### L [id number], [id number] ####Detective Chief: DEANN CURRAN ([phone])[facility] [place] ([facility])[address] [place] [address] [place] MONOCYTES (10*3/UL) IN BLOOD BY MANUAL COUNT 0.5 10*3/uL Normal 0.0-0.9 [facility] Comment on above: Performed By: #### L [id number], [id number] ####Detective Chief: DEANN CURRAN ([phone])[facility] [place] ([facility])[address] [place] [address] [place] MONOCYTES TOTAL PER COUNTED LEUKOCYTES BY MANUAL COUNT 5 Normal [facility] Comment on above: Performed By: #### L [id number], [id number] ####Detective Chief: DEANN CURRAN ([phone])[facility] [place] ([facility])[address] [place] [address] [place] MONOCYTES/100 LEUKOCYTES IN BLOOD BY MANUAL COUNT 5 % Normal 5-13 [facility] Comment on above: Performed By: #### L [id number], [id number] ####Detective Chief: DEANN CURRAN ([phone])[facility] [place] ([facility])[address] [place] [address] [place] NEUTROPHILS (SEGS+BANDS) (10*3/UL) BY MANUAL COUNT 8.6 10*3/uL High 1.8-7.0 [facility] Comment on above: Performed By: #### L [id number], [id number] ####Detective Chief: DEANN CURRAN ([phone])[facility] [place] ([facility])[address] NEUTROPHILS TOTAL PER COUNTED LEUKOCYTES BY MANUAL COUNT 79 Normal [facility] Comment on above: Performed By: #### L [id number], [id number] ####Detective Chief: DEANN CURRAN ([phone])[facility] [place] ([facility])[address] [place] [address] [place] OVALOCYTES PRESENCE IN BLOOD BY LIGHT MICROSCOPY Slight Abnormal (none) [facility] Comment on above: Performed By: #### L [id number], [id number] ####Detective Chief: DEANN CURRAN ([phone])[facility] ([facility])[address] PLATELET MORPHOLOGY IN BLOOD Normal Normal [facility] Comment on above: Performed By: #### L [id number], [id number] ####Detective Chief: DEANN CURRAN ([phone])[facility] [place] ([facility])[address] [place] [address] [place] POIKILOCYTOSIS (PRESENCE) IN BLOOD BY LIGHT MICROSCOPY Slight Abnormal (none) [facility] Comment on above: Performed By: #### L [id number], [id number] ####Detective Chief: DEANN CURRAN ([id number])[facility] [place] ([facility])[address] [place] [address] [place] SEGEMENTED NEUTROPHILS/100 LEUKOCYTES BY MANUAL COUNT 79 % Normal 38-82 [facility] Comment on above: Performed By: #### L [id number], [id number] ####Detective Chief: DEANN CURRAN ([phone])[facility] (SBHLAB)[address] Manual differential performe d Ql (Bld)on 11-12-2024 Anisocytosis Ql (Bld) Moderate Abnormal (none) [facility] Basophils (Bld) [#/Vol] 0.1 10*3/uL 0.0 - 0.2 10*3/uL [facility] Basophils Manual 1 [facility] Basophils/100 WBC (Bld) 1 % 0 - 2 % S [facility] cells LM Ql (Bld) Rare Abnormal (none) [facility] Cells Counted Total (Bld) [#] 100 {cells} [facility] Differential Method Manual differential performed [facility] Eosinophils (Bld) [#/Vol] 0.3 10*3/uL 0.0 - 0.5 10*3/uL [facility] Eosinophils Manual 3 High 0 - 1 [facility] Eosinophils/100 WBC (Bld) 3 % 0 - 6 % [facility] Leukocyte morphology finding Nom (Bld) Normal [facility] Lymphocytes (Bld) [#/Vol] 1.3 10*3/uL 1.0 - 4.3 10*3/uL [facility] Lymphocytes Manual 12 [facility] Lymphocytes/100 WBC (Bld) 12 % Low 15 - 45 % [facility] Monocytes (Bld) [#/Vol] 0.5 10*3/uL 0.0 - 0.9 10*3/uL [facility] Monocytes Manual 5 [facility] Monocytes/100 WBC (Bld) 5 % 5 - 13 % [facility] Neutrophils (Bld) [#/Vol] 8.6 10*3/uL High 1.8 - 7.0 10*3/uL [facility] Neutrophils Manual 79 [facility] Ovalocytes LM Ql (Bld) Slight Abnormal (none) [facility] Platelet morphology finding Nom (Bld) Normal [facility] Poikilocytosis LM Ql (Bld) Slight Abnormal (none) [facility] Segmented neutrophils/100 WBC (Bld) 79 % 38 - 82 % [facility] WBC corrected for nucl RBC (Bld) [#/Vol] 10.9 10*3/uL High 3.6 - 10.7 10*3/uL [facility] No Panel InformationOrdered By: Mona Huston on 11-12-2024 Interpretation and review of laboratory results Abnormal [facility] [id number] 11-11-2024 [id number] Normal [facility] [id number] Prison/SNF - Return [place] [facility] [address] [facility] [id number] Patient/Family Choice Normal [facility] [id number] Normal [facility] BASIC METABOLIC PANELon Anion gap [Moles/Vol] 9 mmol/L Normal 3-13 [facility] Comment on above: Performed By: #### L [id number] ####Detective Chief: PHILLY FRANCO ([phone])[facility])[address] [place] [address] Calcium [Mass/Vol] 7.3 mg/dL Low 8.8-10.0 [facility] Comment on above: Performed By: #### L AB15 ####Detective Chief: PHILLY FRANCO ([phone])[facility] ([facility])[address] [place] [address] Chloride [Moles/Vol] 105 mmol/L Normal 98-107 [facility] Comment on above: Performed By: #### L AB15 ####Detective Chief: PHILLY FRANCO ([phone])[facility])[address] [place] [address] CO2 [Moles/Vol] 24 mmol/L Normal 23-31 [facility] Comment on above: Performed By: #### L AB15 ####Detective Chief: PHILLY FRANCO ([phone])[facility])[address] [place] [address] Creatinine [Mass/Vol] 4.23 mg/dL High 0.57-1.11 [facility] Comment on above: Performed By: #### L AB15 ####Detective Chief: PHILLY FRANCO ([phone])[facility])[address] [place] [address] [place] GLOMERULAR FILTRATION RATE ML/MIN/1.73 SQ M.PREDICTED 10.5 mL/min/1.73m*2 Low >60.0 [facility] Comment on above: Result Comment: Calc ulation based on the Chronic Kidney Disease Epidemiology Collaboration (CKD-EPI) equation refit without adjustment for race Performed By: #### L [id number] ####Detective Chief: PHILLY FRANCO ([phone])[facility] ([facility])[address] [place] [address] [place] Glucose [Mass/Vol] 67 mg/dL Low 82-115 [facility] Comment on above: Performed By: #### L AB15 ####Detective Chief: PHILLY FRANCO ([phone])[facility])[address] [place] [address] Potassium [Moles/Vol] 4.5 mmol/L Normal 3.5-5.1 [facility] Comment on above: Result Comment: [facility] potassium values may be up to 0.5 mmol/L lower than serum values. Performed By: #### L AB15 ####Detective Chief: PHILLY FRANCO ([phone])[facility])[address] [place] [address] Sodium [Moles/Vol] 138 mmol/L Normal 136-145 [facility] Comment on above: Performed By: #### L AB15 ####Detective Chief: PHILLY FRANCO ([phone])[facility])[address] [place] [address] [place] Urea nitrogen [Mass/Vol] 26 mg/dL High 9-23 [facility] Comment on above: Performed By: #### L AB15 ####Detective Chief: PHILLY FRANCO ([phone])[facility])[address] [place] [address] BLOOD TYPE AND SCREEN GELon 11-11-2024 ABO GROUPING O Normal [facility] Comment on above: Performed By: #### L [id number] ####Detective Chief: PHILLY FRANCO ([phone])[facility] ([facility])[address] [place] [address] RH TYPE IN BLOOD Positive Normal [facility] Comment on above: Performed By: #### L [id number] ####Detective Chief: PHILLY FRANCO ([phone])[facility] ([facility])[address] [place] [address] Basic metabolic 1998 panelon 11-11-2024 Anion gap [Moles/Vol] 9 mmol/L 3 - 13 mmol/L [facility] Calcium [Mass/Vol] 7.3 mg/dL Low 8.8 - 10. 0 mg/dL [facility] Chloride [Moles/Vol] 105 mmol/L 98 - 10 7 mmol/L [facility] CO2 [Moles/Vol] 24 mmol/L 23 - 31 mmol/L [facility] Creatinine [Mass/Vol] 4.23 mg/dL High 0.57 - 1.11 mg/dL [facility] GFR/1.73 sq M.predicted (S/P/Bld) [Vol rate/Area] 10.5 mL/min Low - PINF [facility] Glucose [Mass/Vol] 67 mg/dL Low 82 - 115 mg/dL [facility] Interpretation and review of laboratory results Abnormal [facility] Potassium [Moles/Vol] 4.5 mmol/L 3.5 - 5.1 mmol/L [facility] Sodium [Moles/Vol] 138 mmol/L 136 - 145 mmol/L [facility] Urea nitrogen [Mass/Vol] 26 mg/dL High 9 - 23 mg/dL [facility] Blood type and Crossmatch pa kojo (Bld)on 11-11-2024 ABO group Nom (Bld) O [facility] Blood group antibody screen GEL Ql Negative [facility] D Ag Ql (RBC) Positive [facility] CBC W Auto Differential pane l (Bld)on 11-11-2024 Basophils (Bld) [#/Vol] 0.1 10*3/uL 0.0 - 0.2 10*3/uL [facility] Basophils/100 WBC (Bld) 1 % 0.0 - 2.0 % [facility] Eosinophils (Bld) [#/Vol] 0.4 10*3/uL 0.0 - 0.5 10*3/uL [facility] Eosinophils/100 WBC (Bld) 3.1 % 0.0 - 6.0 % [facility] Erythrocyte distribution width (RBC) [Ratio] 17.1 % High 11.5 - 15.0 % [facility] Hematocrit (Bld) [Volume fraction] 21.8 % Low 35.0 - 47.0 % [facility] Hemoglobin (Bld) [Mass/Vol] 7 g/dL Low 11.7 - 16.0 g/dL [facility] Immature granulocytes (Bld) [#/Vol] 0.1 10*3/uL High NINF - 0.1 10*3/uL [facility] Immature granulocytes/100 WBC (Bld) 1.1 % 0.0 - 2.0 % [facility] Interpretation and review of laboratory results Abnormal [facility] Lymphocytes (Bld) [#/Vol] 1.8 10*3/uL 1.0 - 4.3 10*3/uL [facility] Lymphocytes/100 WBC (Bld) 14.3 % Low 15.0 - 45.0 % [facility] MCH (RBC) [Entitic mass] 29.3 pg 26.0 - 34.0 pg [facility] MCHC (RBC) [Mass/Vol] 32.1 % 30.5 - 36.0 % [facility] MCV (RBC) [Entitic vol] 91.2 fL 77.0 - 99.0 fL [facility] Monocytes (Bld) [#/Vol] 0.9 10*3/uL 0.0 - 0.9 10*3/uL [facility] Monocytes/100 WBC (Bld) 7.1 % 5.0 - 13.0 % [facility] Neutrophils (Bld) [#/Vol] 9.3 10*3/uL High 1.8 - 7.5 10*3/uL [facility] Neutrophils/100 WBC (Bld) 73.4 % 38.0 - 82.0 % [facility] Nucleated RBC/100 WBC (Bld) [Ratio] 0 % [facility] Platelet mean volume (Bld) [Entitic vol] 10.4 fL 9.0 - 12.7 fL [facility] Platelets (Bld) [#/Vol] 480 10*3/uL High 140 - 440 10*3/uL [facility] RBC (Bld) [#/Vol] 2.39 10*6/uL Low 3.80 - 5.2 0 10*6/uL [facility] WBC (Bld) [#/Vol] 12.6 10*3/uL High 3.6 - 10.7 10*3/uL [facility] CBC WITH AUTO DIFFERENTIALon 11-11-2024 Basophils (Bld) [#/Vol] 0.1 10*3/uL Normal 0.0-0.2 [facility] Comment on above: Performed By: #### L [id number] ####Detective Chief: PHILLY FRANCO ([phone])[facility])[address] [place] [address] Basophils/100 WBC (Bld) 1.0 % Normal 0.0-2.0 [facility] Comment on above: Performed By: #### L [id number] ####Detective Chief: PHILLY FRANCO ([phone])[facility])[address] [place] [address] Eosinophils (Bld) [#/Vol] 0.4 10*3/uL Normal 0.0-0.5 [facility] Comment on above: Performed By: #### L [id number] ####Detective Chief: PHILLY FRANCO ([phone])[facility])[address] [place] [address] Eosinophils/100 WBC (Bld) 3.1 % Normal 0.0-6.0 [facility] Comment on above: Performed By: #### L [id number] ####Detective Chief: PHILLY FRANCO ([phone])[facility])[address] [place] [address] Erythrocyte distribution width (RBC) [Ratio] 17.1 % High 11.5-15.0 [facility] Comment on above: Performed By: #### L [id number] ####Detective Chief: PHILLY FRANCO ([phone])[facility])[address] [place] [address] [place] Hematocrit (Bld) [Volume fraction] 21.8 % Low 35.0-47.0 [facility] Comment on above: Performed By: #### L [id number] ####Detective Chief: PHILLY FRANCO ([phone])[facility])[address] [place] [address] Hemoglobin (Bld) [Mass/Vol] 7.0 g/dL Low 11.7-16.0 [facility] Comment on above: Performed By: #### L [id number] ####Detective Chief: PHILLY FRANCO ([phone])[facility])[address] [place] [address] IMMATURE GRANS % 1.1 % Normal 0.0-2.0 [facility] Comment on above: Performed By: #### L [id number] ####Detective Chief: PHILLY FRANCO ([phone])[facility])[address] [place] [address] IMMATURE GRANS ABSOLUTE 0.1 10*3/uL High <0.1 [facility] Comment on above: Performed By: #### L [id number] ####Detective Chief: PHILLY FRANCO ([phone])[facility])[address] [place] [address] Lymphocytes (Bld) [#/Vol] 1.8 10*3/uL Normal 1.0-4.3 [facility] Comment on above: Performed By: #### L [id number] ####Detective Chief: PHILLY FRANCO ([phone])[facility])[address] [place] [address] Lymphocytes/100 WBC (Bld) 14.3 % Low 15.0-45.0 [facility] Comment on above: Performed By: #### L [id number] ####Detective Chief: PHILLY FRANCO ([phone])[facility])[address] [place] [address] MCH (RBC) [Entitic mass] 29.3 pg Normal 26.0-34.0 [facility] Comment on above: Performed By: #### L [id number] ####Detective Chief: PHILLY FRANCO ([phone])[facility] ([facility])[address] [place] [address] MCHC 32.1 % Normal 30.5-36.0 [facility] Comment on above: Performed By: #### L [id number] ####Detective Chief: PHILLY FRANCO ([phone])[facility] ([facility])[address] [place] [address] MCV (RBC) [Entitic vol] 91.2 fL Normal 77.0-99.0 [facility] Comment on above: Performed By: #### L [id number] ####Detective Chief: PHILLY FRANCO ([phone])[facility])[address] [place] [address] Monocytes (Bld) [#/Vol] 0.9 10*3/uL Normal 0.0-0.9 [facility] Comment on above: Performed By: #### L [id number] ####Detective Chief: PHILLY FRANCO ([phone])[facility] ([facility])[address] [place] [address] Monocytes/100 WBC (Bld) 7.1 % Normal 5.0-13.0 [facility] Comment on above: Performed By: #### L [id number] ####Detective Chief: PHILLY FRANCO ([phone])[facility] ([facility])[address] [place] [address] NEUTROPHILS ABSOLUTE 9.3 10*3/uL High 1.8-7.5 [facility] Comment on above: Performed By: #### L [id number] ####Detective Chief: PHILLY FRANCO ([phone])[facility])[address] [place] [address] Neutrophils/100 WBC (Bld) 73.4 % Normal 38.0-82.0 [facility] Comment on above: Performed By: #### L [id number] ####Detective Chief: PHILLY FRANCO ([phone])[facility] ([facility])[address] [place] [address] NRBC 0.0 /100 WBCs Normal 0.0-2.0 [facility] Comment on above: Performed By: #### L [id number] ####Detective Chief: PHILLY FRANCO ([phone])[facility])[address] [place] [address] Platelet mean volume (Bld) [Entitic vol] 10.4 fL Normal 9.0-12.7 [facility] Comment on above: Performed By: #### L [id number] ####Detective Chief: PHILLY FRANCO ([phone])[facility] ([facility])[address] [place] [address] Platelets (Bld) [#/Vol] 480 10*3/uL High 140-440 [facility] Comment on above: Performed By: #### L [id number] ####Detective Chief: PHILLY FRANCO ([phone])[facility] ([facility])[address] [place] [address] RBC (Bld) [#/Vol] 2.39 10*6/uL Low 3.80-5.20 [facility] Comment on above: Performed By: #### L [id number] ####Detective Chief: PHILLY FRANCO ([phone])[facility] ([facility])[address] [place] [address] WBC (Bld) [#/Vol] 12.6 10*3/uL High 3.6-10.7 [facility] Comment on above: Performed By: #### L [id number] ####Detective Chief: PHILLY FRANCO ([phone])[facility])[address] [place] [address] Nursing Noteon 11-11-2024 Nursing Note [facility] cot Normal [facility] Nursing Note Called report to [facility] sprague at [facility]. Pt brother at bedside aware of dc. Normal [facility] Nursing Note Normal [facility] Progress Noteon 11-11-2024 Progress Note Normal [facility] Progress Note Normal [facility] BASIC METABOLIC PANELon 08-0 Anion gap [Moles/Vol] 5 mmol/L Normal 3-13 [facility] Comment on above: Performed By: #### L [id number] ####Detective Chief: PHILLY FRANCO ([phone])[facility] ([facility])[address] [place] [address] Calcium [Mass/Vol] 7.6 mg/dL Low 8.8-10.0 [facility] Comment on above: Performed By: #### L AB15 ####Detective Chief: PHILLY FRANCO ([phone])[facility] ([facility])[address] [place] [address] Chloride [Moles/Vol] 103 mmol/L Normal 98-107 [facility] Comment on above: Performed By: #### L AB15 ####Detective Chief: PHILLY FRANCO ([phone])[facility])[address] [place] [address] CO2 [Moles/Vol] 26 mmol/L Normal 23-31 [facility] Comment on above: Performed By: #### L AB15 ####Detective Chief: PHILLY FRANCO ([phone])[facility] ([facility])[address] [place] [address] Creatinine [Mass/Vol] 2.81 mg/dL High 0.57-1.11 [facility] Comment on above: Performed By: #### L AB15 ####Detective Chief: PHILLY FRANCO ([phone])[facility])[address] [place] [address] GLOMERULAR FILTRATION RATE ML/MIN/1.73 SQ M.PREDICTED 17.1 mL/min/1.73m*2 Low >60.0 [facility] Comment on above: Result Comment: Calc ulation based on the Chronic Kidney Disease Epidemiology Collaboration (CKD-EPI) equation refit without adjustment for race Performed By: #### L AB15 ####Detective Chief: PHILLY FRANCO ([phone])[facility])[address] [place] [address] Glucose [Mass/Vol] 67 mg/dL Low 82-115 [facility] Comment on above: Performed By: #### L AB15 ####Detective Chief: PHILLY FRANCO ([phone])[facility] ([facility])[address] [place] [address] Potassium [Moles/Vol] 4.0 mmol/L Normal 3.5-5.1 [facility] Comment on above: Result Comment: [facility] potassium values may be up to 0.5 mmol/L lower than serum values. Performed By: #### L AB15 ####Detective Chief: PHILLY FRANCO ([phone])[facility] ([facility])[address] [place] [address] Sodium [Moles/Vol] 134 mmol/L Low 136-145 [facility] Comment on above: Performed By: #### L AB15 ####Detective Chief: PHILLY FRANCO ([phone])[facility] ([facility])[address] [place] [address] Urea nitrogen [Mass/Vol] 16 mg/dL Normal 9-23 [facility] Comment on above: Performed By: #### L AB15 ####Detective Chief: PHILLY FRANCO ([phone])[facility])[address] [place] [address] Basic metabolic 1998 panelon 11-10-2024 Anion gap [Moles/Vol] 5 mmol/L 3 - 13 mmol/L [facility] Calcium [Mass/Vol] 7.6 mg/dL Low 8.8 - 10. 0 mg/dL [facility] Chloride [Moles/Vol] 103 mmol/L 98 - 10 7 mmol/L [facility] CO2 [Moles/Vol] 26 mmol/L 23 - 31 mmol/L [facility] Creatinine [Mass/Vol] 2.81 mg/dL High 0.57 - 1.11 mg/dL [facility] GFR/1.73 sq M.predicted (S/P/Bld) [Vol rate/Area] 17.1 mL/min Low - PINF [facility] Glucose [Mass/Vol] 67 mg/dL Low 82 - 115 mg/dL [facility] Interpretation and review of laboratory results Abnormal [facility] Potassium [Moles/Vol] 4 mmol/L 3.5 - 5.1 mmol/L [facility] Sodium [Moles/Vol] 134 mmol/L Low 136 - 145 mmol/L [facility] Urea nitrogen [Mass/Vol] 16 mg/dL 9 - 23 mg/dL [facility] CBC W Auto Differential pane l (Bld)on 11-10-2024 Basophils (Bld) [#/Vol] 0.1 10*3/uL 0.0 - 0.2 10*3/uL [facility] Basophils/100 WBC (Bld) 1 % 0.0 - 2.0 % [facility] Eosinophils (Bld) [#/Vol] 0.4 10*3/uL 0.0 - 0.5 10*3/uL [facility] Eosinophils/100 WBC (Bld) 3.1 % 0.0 - 6.0 % [facility] Erythrocyte distribution width (RBC) [Ratio] 16.9 % High 11.5 - 15.0 % [facility] Hematocrit (Bld) [Volume fraction] 21.6 % Low 35.0 - 47.0 % [facility] Hemoglobin (Bld) [Mass/Vol] 7 g/dL Low 11.7 - 16.0 g/dL [facility] Immature granulocytes (Bld) [#/Vol] 0.2 10*3/uL High NINF - 0.1 10*3/uL [facility] Immature granulocytes/100 WBC (Bld) 1.1 % 0.0 - 2.0 % [facility] Interpretation and review of laboratory results Abnormal [facility] Lymphocytes (Bld) [#/Vol] 2 10*3/uL 1.0 - 4.3 10*3/uL [facility] Lymphocytes/100 WBC (Bld) 15.1 % 15.0 - 45.0 % [facility] MCH (RBC) [Entitic mass] 28.8 pg 26.0 - 34.0 pg [facility] MCHC (RBC) [Mass/Vol] 32.4 % 30.5 - 36.0 % [facility] MCV (RBC) [Entitic vol] 88.9 fL 77.0 - 99.0 fL [facility] Monocytes (Bld) [#/Vol] 1.1 10*3/uL High 0.0 - 0.9 10*3/uL [facility] Monocytes/100 WBC (Bld) 8.1 % 5.0 - 13.0 % [facility] Neutrophils (Bld) [#/Vol] 9.4 10*3/uL High 1.8 - 7.5 10*3/uL [facility] Neutrophils/100 WBC (Bld) 71.6 % 38.0 - 82.0 % [facility] Nucleated RBC/100 WBC (Bld) [Ratio] 0 % [facility] Platelet mean volume (Bld) [Entitic vol] 10.4 fL 9.0 - 12.7 fL [facility] Platelets (Bld) [#/Vol] 382 10*3/uL 140 - 440 10*3/uL [facility] RBC (Bld) [#/Vol] 2.43 10*6/uL Low 3.80 - 5.2 0 10*6/uL [facility] WBC (Bld) [#/Vol] 13.2 10*3/uL High 3.6 - 10.7 10*3/uL [facility] CBC WITH AUTO DIFFERENTIALon 11-10-2024 Basophils (Bld) [#/Vol] 0.1 10*3/uL Normal 0.0-0.2 [facility] Comment on above: Performed By: #### L [id number] ####Detective Chief: PHILLY FRANCO ([phone])[facility] ([facility])[address] [place] [address] Basophils/100 WBC (Bld) 1.0 % Normal 0.0-2.0 [facility] Comment on above: Performed By: #### L [id number] ####Detective Chief: PHILLY FRANCO ([phone])[facility] ([facility])[address] [place] [address] [place] Eosinophils (Bld) [#/Vol] 0.4 10*3/uL Normal 0.0-0.5 [facility] Comment on above: Performed By: #### L [id number] ####Detective Chief: PHILLY FRANCO ([phone])[facility] ([facility])[address] [place] [address] [place] Eosinophils/100 WBC (Bld) 3.1 % Normal 0.0-6.0 [facility] Comment on above: Performed By: #### L [id number] ####Detective Chief: PHILLY FRANCO ([phone])[facility])[address] [place] [address] Erythrocyte distribution width (RBC) [Ratio] 16.9 % High 11.5-15.0 [facility] Comment on above: Performed By: #### L [id number] ####Detective Chief: PHILLY FRANCO ([phone])[address] Hematocrit (Bld) [Volume fraction] 21.6 % Low 35.0-47.0 [facility] Comment on above: Performed By: #### L [id number] ####Detective Chief: PHILLY FRANCO ([phone])[address] Hemoglobin (Bld) [Mass/Vol] 7.0 g/dL Low 11.7-16.0 [facility] Comment on above: Performed By: #### L [id number] ####Detective Chief: PHILLY FRANCO ([phone])[address] IMMATURE GRANS % 1.1 % Normal 0.0-2.0 [facility] Comment on above: Performed By: #### L [id number] ####Detective Chief: PHILLY FRANCO ([phone])[address] IMMATURE GRANS ABSOLUTE 0.2 10*3/uL High <0.1 [facility] Comment on above: Performed By: #### L [id number] ####Detective Chief: PHILLY FRANCO ([phone])[address] Lymphocytes (Bld) [#/Vol] 2.0 10*3/uL Normal 1.0-4.3 [facility] Comment on above: Performed By: #### L [id number] ####Detective Chief: PHILLY FRANCO ([phone])[facility] ([facility])[address] [place] [address] Lymphocytes/100 WBC (Bld) 15.1 % Normal 15.0-45.0 [facility] Comment on above: Performed By: #### L [id number] ####Detective Chief: PHILLY FRANCO ([phone])[facility])[address] [place] [address] MCH (RBC) [Entitic mass] 28.8 pg Normal 26.0-34.0 [facility] Comment on above: Performed By: #### L [id number] ####Detective Chief: PHILLY FRANCO ([phone])[facility])[address] [place] [address] MCHC 32.4 % Normal 30.5-36.0 [facility] Comment on above: Performed By: #### L [id number] ####Detective Chief: PHILLY FRANCO ([phone])[facility] ([facility])[address] [place] [address] MCV (RBC) [Entitic vol] 88.9 fL Normal 77.0-99.0 [facility] Comment on above: Performed By: #### L [id number] ####Detective Chief: PHILLY FRANCO ([phone])[facility])[address] [place] [address] Monocytes (Bld) [#/Vol] 1.1 10*3/uL High 0.0-0.9 [facility] Comment on above: Performed By: #### L [id number] ####Detective Chief: PHILLY FRANCO ([phone])[facility])[address] [place] [address] Monocytes/100 WBC (Bld) 8.1 % Normal 5.0-13.0 [facility] Comment on above: Performed By: #### L [id number] ####Detective Chief: PHILLY FRANCO ([phone])[facility] ([facility])[address] [place] [address] NEUTROPHILS ABSOLUTE 9.4 10*3/uL High 1.8-7.5 [facility] Comment on above: Performed By: #### L [id number] ####Detective Chief: PHILLY FRANCO ([phone])[facility] ([facility])[address] [place] [address] Neutrophils/100 WBC (Bld) 71.6 % Normal 38.0-82.0 [facility] Comment on above: Performed By: #### L [id number] ####Detective Chief: PHILLY FRANCO ([phone])[facility] ([facility])[address] [place] [address] NRBC 0.0 /100 WBCs Normal 0.0-2.0 [facility] Comment on above: Performed By: #### L [id number] ####Detective Chief: PHILLY FRANCO ([phone])[facility] ([facility])[address] [place] [address] Platelet mean volume (Bld) [Entitic vol] 10.4 fL Normal 9.0-12.7 [facility] Comment on above: Performed By: #### L [id number] ####Detective Chief: PHILLY FRANCO ([phone])[facility] ([facility])[address] [place] [address] Platelets (Bld) [#/Vol] 382 10*3/uL Normal 140-440 [facility] Comment on above: Performed By: #### L [id number] ####Detective Chief: PHILLY FRANCO ([phone])[facility] ([facility])[address] [place] [address] [place] RBC (Bld) [#/Vol] 2.43 10*6/uL Low 3.80-5.20 [facility] Comment on above: Performed By: #### L [id number] ####Detective Chief: PHILLY FRANCO ([phone])[facility] ([facility])[address] [place] [address] [place] WBC (Bld) [#/Vol] 13.2 10*3/uL High 3.6-10.7 [facility] Comment on above: Performed By: #### L [id number] ####Detective Chief: PHILLY FRANCO ([phone])[facility])[address] [place] [address] Nursing Noteon 11-10-2024 Nursing Note Normal [facility] Progress Noteon 11-10-2024 Progress Note Normal [facility] Progress Note Normal [facility] Progress Note Normal [facility] Progress Note Normal [facility] Progress Note Normal [facility] BASIC METABOLIC PANELon Anion gap [Moles/Vol] 8 mmol/L Normal 3-13 [facility] Comment on above: Performed By: #### L [id number] ####Detective Chief: PHILLY FRANCO ([phone])[facility])[address] [place] [address] Calcium [Mass/Vol] 7.4 mg/dL Low 8.8-10.0 [facility] Comment on above: Performed By: #### L AB15 ####Detective Chief: PHILLY FRANCO ([phone])[facility] ([facility])[address] [place] [address] Chloride [Moles/Vol] 102 mmol/L Normal 98-107 [facility] Comment on above: Performed By: #### L AB15 ####Detective Chief: PHILLY FRANCO ([phone])[facility])[address] [place] [address] CO2 [Moles/Vol] 24 mmol/L Normal 23-31 [facility] Comment on above: Performed By: #### L AB15 ####Detective Chief: PHILLY FRANCO ([phone])[facility])[address] [place] [address] Creatinine [Mass/Vol] 4.02 mg/dL High 0.57-1.11 [facility] Comment on above: Performed By: #### L AB15 ####Detective Chief: PHILLY FRANCO ([phone])[facility])[address] [place] [address] [place] GLOMERULAR FILTRATION RATE ML/MIN/1.73 SQ M.PREDICTED 11.2 mL/min/1.73m*2 Low >60.0 [facility] Comment on above: Result Comment: Calc ulation based on the Chronic Kidney Disease Epidemiology Collaboration (CKD-EPI) equation refit without adjustment for race Performed By: #### L AB15 ####Detective Chief: PHILLY FRANCO ([phone])[facility])[address] [place] [address] Glucose [Mass/Vol] 68 mg/dL Low 82-115 [facility] Comment on above: Performed By: #### L AB15 ####Detective Chief: PHILLY FRANCO ([phone])[facility])[address] [place] [address] Potassium [Moles/Vol] 4.5 mmol/L Normal 3.5-5.1 [facility] Comment on above: Result Comment: [facility] potassium values may be up to 0.5 mmol/L lower than serum values. Performed By: #### L AB15 ####Detective Chief: PHILLY FRANCO ([phone])[facility])[address] [place] [address] Sodium [Moles/Vol] 134 mmol/L Low 136-145 [facility] Comment on above: Performed By: #### L AB15 ####Detective Chief: PHILLY FRANCO ([phone])[facility])[address] [place] [address] Urea nitrogen [Mass/Vol] 24 mg/dL High 9-23 [facility] Comment on above: Performed By: #### L AB15 ####Detective Chief: PHILLY FRANCO ([phone])[facility])[address] [place] [address] BLOOD TYPE AND SCREEN GELon 11-09-2024 ABO GROUPING O Normal [facility] Comment on above: Performed By: #### L [id number] ####Detective Chief: PHILLY [phone])[facility]OD [facility] ([facility])[address] [place] [address] RH TYPE IN BLOOD Positive Normal [facility] Comment on above: Performed By: #### L [id number] ####Detective Chief: PHILLY FRANCO ([phone])[facility] ([facility])[address] [place] [address] Basic metabolic 1998 panelon 11-09-2024 Anion gap [Moles/Vol] 8 mmol/L 3 - 13 mmol/L [facility] Calcium [Mass/Vol] 7.4 mg/dL Low 8.8 - 10. 0 mg/dL [facility] Chloride [Moles/Vol] 102 mmol/L 98 - 10 7 mmol/L [facility] CO2 [Moles/Vol] 24 mmol/L 23 - 31 mmol/L [facility] Creatinine [Mass/Vol] 4.02 mg/dL High 0.57 - 1.11 mg/dL [facility] GFR/1.73 sq M.predicted (S/P/Bld) [Vol rate/Area] 11.2 mL/min Low - PINF [facility] Glucose [Mass/Vol] 68 mg/dL Low 82 - 115 mg/dL [facility] Interpretation and review of laboratory results Abnormal [facility] Potassium [Moles/Vol] 4.5 mmol/L 3.5 - 5.1 mmol/L [facility] Sodium [Moles/Vol] 134 mmol/L Low 136 - 145 mmol/L [facility] Urea nitrogen [Mass/Vol] 24 mg/dL High 9 - 23 mg/dL [facility] Blood type and Crossmatch pa kojo (Bld)on 11-09-2024 ABO group Nom (Bld) O [facility] Blood group antibody screen GEL Ql Negative [facility] D Ag Ql (RBC) Positive [facility] CBC W Auto Differential pane l (Bld)Ordered By: Yogi Stanley on 11-09-2024 Basophils (Bld) [#/Vol] 0.2 10*3/uL 0.0 - 0.2 10*3/uL [facility] Basophils/100 WBC (Bld) 1 % 0.0 - 2.0 % [facility] Eosinophils (Bld) [#/Vol] 0.4 10*3/uL 0.0 - 0.5 10*3/uL [facility] Eosinophils/100 WBC (Bld) 2.7 % 0.0 - 6.0 % [facility] Erythrocyte distribution width (RBC) [Ratio] 16.7 % High 11.5 - 15.0 % [facility] Hematocrit (Bld) [Volume fraction] 21.4 % Low 35.0 - 47.0 % [facility] Hemoglobin (Bld) [Mass/Vol] 6.8 g/dL Critically low 11.7 - 16.0 g/dL [facility] Immature granulocytes (Bld) [#/Vol] 0.1 10*3/uL High NINF - 0.1 10*3/uL [facility] Immature granulocytes/100 WBC (Bld) 0.8 % 0.0 - 2.0 % [facility] Interpretation and review of laboratory results Abnormal [facility] Lymphocytes (Bld) [#/Vol] 2.2 10*3/uL 1.0 - 4.3 10*3/uL [facility] Lymphocytes/100 WBC (Bld) 13.5 % Low 15.0 - 45.0 % [facility] MCH (RBC) [Entitic mass] 28.3 pg 26.0 - 34.0 pg [facility] MCHC (RBC) [Mass/Vol] 31.8 % 30.5 - 36.0 % [facility] MCV (RBC) [Entitic vol] 89.2 fL 77.0 - 99.0 fL [facility] Monocytes (Bld) [#/Vol] 1 10*3/uL High 0.0 - 0.9 10*3/uL [facility] Monocytes/100 WBC (Bld) 6.1 % 5.0 - 13.0 % [facility] Neutrophils (Bld) [#/Vol] 12.1 10*3/uL High 1.8 - 7.5 10*3/uL [facility] Neutrophils/100 WBC (Bld) 75.9 % 38.0 - 82.0 % [facility] Nucleated RBC/100 WBC (Bld) [Ratio] 0 % [facility] Platelet mean volume (Bld) [Entitic vol] 10.1 fL 9.0 - 12.7 fL [facility] Platelets (Bld) [#/Vol] 414 10*3/uL 140 - 440 10*3/uL [facility] RBC (Bld) [#/Vol] 2.4 10*6/uL Low 3.80 - 5.2 0 10*6/uL [facility] WBC (Bld) [#/Vol] 16 10*3/uL High 3.6 - 10.7 10*3/uL [facility] CBC WITH AUTO DIFFERENTIALon 11-09-2024 Basophils (Bld) [#/Vol] 0.2 10*3/uL Normal 0.0-0.2 [facility] Comment on above: Performed By: #### L [id number] ####Detective Chief: PHILLY FRANCO ([phone])[facility] ([facility])[address] [place] [address] Basophils/100 WBC (Bld) 1.0 % Normal 0.0-2.0 [facility] Comment on above: Performed By: #### L [id number] ####Detective Chief: PHILLY FRANCO ([phone])[facility] ([facility])[address] [place] [address] Eosinophils (Bld) [#/Vol] 0.4 10*3/uL Normal 0.0-0.5 [facility] Comment on above: Performed By: #### L [id number] ####Detective Chief: PHILLY FRANCO ([phone])[facility] ([facility])[address] [place] [address] Eosinophils/100 WBC (Bld) 2.7 % Normal 0.0-6.0 [facility] Comment on above: Performed By: #### L [id number] ####Detective Chief: PHILLY FRANCO ([phone])[facility] ([facility])[address] [place] [address] Erythrocyte distribution width (RBC) [Ratio] 16.7 % High 11.5-15.0 [facility] Comment on above: Performed By: #### L [id number] ####Detective Chief: PHILLY FRANCO ([phone])[facility] ([facility])[address] [place] [address] Hematocrit (Bld) [Volume fraction] 21.4 % Low 35.0-47.0 [facility] Comment on above: Performed By: #### L [id number] ####Detective Chief: PHILLY FRANCO ([phone])[facility])[address] [place] [address] Hemoglobin (Bld) [Mass/Vol] 6.8 g/dL Critically low 11.7-16.0 [facility] Comment on above: Performed By: #### L [id number] ####Detective Chief: PHILLY FRANCO ([phone])[facility])[address] [place] [address] IMMATURE GRANS % 0.8 % Normal 0.0-2.0 [facility] Comment on above: Performed By: #### L [id number] ####Detective Chief: PHILLY FRANCO ([phone])[address] IMMATURE GRANS ABSOLUTE 0.1 10*3/uL High <0.1 [facility] Comment on above: Performed By: #### L [id number] ####Detective Chief: PHILLY FRANCO ([phone])[facility])[address] [place] [address] Lymphocytes (Bld) [#/Vol] 2.2 10*3/uL Normal 1.0-4.3 [facility] Comment on above: Performed By: #### L [id number] ####Detective Chief: PHILLY FRANCO ([phone])[facility])[address] [place] [address] Lymphocytes/100 WBC (Bld) 13.5 % Low 15.0-45.0 [facility] Comment on above: Performed By: #### L [id number] ####Detective Chief: PHILLY FRANCO ([phone])[facility])[address] [place] [address] MCH (RBC) [Entitic mass] 28.3 pg Normal 26.0-34.0 [facility] Comment on above: Performed By: #### L [id number] ####Detective Chief: PHILLY FRANCO ([phone])[facility] ([facility])[address] [place] [address] MCHC 31.8 % Normal 30.5-36.0 [facility] Comment on above: Performed By: #### L [id number] ####Detective Chief: PHILLY FRANCO ([phone])[facility] ([facility])[address] [place] [address] MCV (RBC) [Entitic vol] 89.2 fL Normal 77.0-99.0 [facility] Comment on above: Performed By: #### L [id number] ####Detective Chief: PHILLY FRANCO ([phone])[facility])[address] [place] [address] Monocytes (Bld) [#/Vol] 1.0 10*3/uL High 0.0-0.9 [facility] Comment on above: Performed By: #### L [id number] ####Detective Chief: PHILLY FRANCO ([phone])[facility] ([facility])[address] [place] [address] Monocytes/100 WBC (Bld) 6.1 % Normal 5.0-13.0 [facility] Comment on above: Performed By: #### L [id number] ####Detective Chief: PHILLY FRANCO ([phone])[facility])[address] [place] [address] NEUTROPHILS ABSOLUTE 12.1 10*3/uL High 1.8-7.5 [facility] Comment on above: Performed By: #### L [id number] ####Detective Chief: PHILLY FRANCO ([phone])[facility])[address] [place] [address] Neutrophils/100 WBC (Bld) 75.9 % Normal 38.0-82.0 [facility] Comment on above: Performed By: #### L [id number] ####Detective Chief: PHILLY FRANCO ([phone])[facility])[address] [place] [address] NRBC 0.0 /100 WBCs Normal 0.0-2.0 [facility] Comment on above: Performed By: #### L [id number] ####Detective Chief: PHILLY FRANCO ([phone])[facility])[address] [place] [address] Platelet mean volume (Bld) [Entitic vol] 10.1 fL Normal 9.0-12.7 [facility] Comment on above: Performed By: #### L [id number] ####Detective Chief: PHILLY FRANCO ([phone])[facility])[address] [place] [address] Platelets (Bld) [#/Vol] 414 10*3/uL Normal 140-440 [facility] Comment on above: Performed By: #### L [id number] ####Detective Chief: PHILLY FRANCO ([phone])[facility])[address] [place] [address] RBC (Bld) [#/Vol] 2.40 10*6/uL Low 3.80-5.20 [facility] Comment on above: Performed By: #### L [id number] ####Detective Chief: PHILLY FRANCO ([phone])[facility])[address] [place] [address] WBC (Bld) [#/Vol] 16.0 10*3/uL High 3.6-10.7 [facility] Comment on above: Performed By: #### L [id number] ####Detective Chief: PHILLY FRANCO ([phone])[facility])[address] [place] [address] HEMOGLOBIN AND HEMATOCRIT, B LOODon 11-09-2024 Hematocrit (Bld) [Volume fraction] 25.9 % Low 35.0-47.0 [facility] Comment on above: Order Comment: Recom mend 1 hour post transfusion Performed By: #### L [id number] ####Detective Chief: PHILLY FRANCO ([phone])[facility])[address] [place] [address] Hemoglobin (Bld) [Mass/Vol] 8.6 g/dL Low 11.7-16.0 [facility] Comment on above: Order Comment: Recom mend 1 hour post transfusion Performed By: #### L [id number] ####Detective Chief: PHILLY FRANCO ([phone])[facility] ([facility])[address] [place] [address] Hemoglobin (Bld) [Mass/Vol]O rdered By: Ct [place] on 11-09-2024 Hematocrit (Bld) [Volume fraction] 25.9 % Low 35.0 - 47.0 % [facility] Interpretation and review of laboratory results Abnormal [facility] - Hematology and Cell countsOrdered By: Ct [place] on 11-09-2024 Hemoglobin (Bld) [Mass/Vol] 8.6 g/dL Low 11.7 - 16.0 g/dL [facility] No Panel Informationon 11-09 Blood Expiration Date [id number] [facility] Crossmatch interpretation COMP [facility] Dispense Status Transfused [facility] Product Blood Type 5100 [facility] PRODUCT CODE [id number] [facility] Unit ABO O [facility] Unit Number [id number] [facility] Unit RH Positive [facility] Unit Volume 300 mL [facility] Blood Expiration Date [id number] [facility] Crossmatch interpretation COMP [facility] Dispense Status Released from Crossmntch [facility] Dispense Status Transfused [facility] Health Product Blood Type 5100 [facility] PRODUCT CODE [id number] [facility] PRODUCT CODE [id number] [facility] Unit ABO O [facility] Unit Number [id number] [facility] Number [id number] [facility] RH Positive [facility] Unit Volume 300 mL [facility] Nursing Noteon 11-09-2024 Nursing Note Normal [facility] Nursing Note Contacted Dr. Ciro rouse regarding pt screaming out in pain and having bit of confusion. Pt dressing saturated and changed again. Anjel H&H. Dialysis at bedside. Normal [facility] Nursing Note Normal [facility] Progress Noteon 11-09-2024 Progress Note Normal [facility] Progress Note Normal [facility] Progress Note Normal [facility] Progress Note Normal [facility] [id number] 11-08-2024 [id number] Auth obtained to return to [place] of willi Good until 11/11. updated. RN reports continued bleeding, low BS and pain this am. Will follow. Normal [facility] BASIC METABOLIC PANELon Anion gap [Moles/Vol] 6 mmol/L Normal 3-13 [facility] Comment on above: Performed By: #### L AB15 ####Detective Chief: PHILLY FRANCO ([phone])[facility] ([facility])[address] [place] [address] Calcium [Mass/Vol] 7.2 mg/dL Low 8.8-10.0 [facility] Comment on above: Performed By: #### L AB15 ####Detective Chief: PHILLY FRANCO ([phone])[facility] ([facility])[address] [place] [address] [place] Chloride [Moles/Vol] 103 mmol/L Normal 98-107 [facility] Comment on above: Performed By: #### L AB15 ####Detective Chief: PHILLY FRANCO ([phone])[facility] ([facility])[address] [place] [address] [place] CO2 [Moles/Vol] 26 mmol/L Normal 23-31 [facility] Comment on above: Performed By: #### L AB15 ####Detective Chief: PHILLY FRANCO ([phone])[facility] ([facility])[address] [place] [address] Creatinine [Mass/Vol] 2.91 mg/dL High 0.57-1.11 [facility] Comment on above: Performed By: #### L AB15 ####Detective Chief: PHILLY FRANCO ([phone])[facility] ([facility])[address] [place] [address] [place] GLOMERULAR FILTRATION RATE ML/MIN/1.73 SQ M.PREDICTED 16.4 mL/min/1.73m*2 Low >60.0 [facility] Comment on above: Result Comment: Calc ulation based on the Chronic Kidney Disease Epidemiology Collaboration (CKD-EPI) equation refit without adjustment for race Performed By: #### L AB15 ####Detective Chief: PHILLY FRANCO ([phone])[facility])[address] [place] [address] Glucose [Mass/Vol] 67 mg/dL Low 82-115 [facility] Comment on above: Performed By: #### L AB15 ####Detective Chief: PHILLY FRANCO ([phone])[facility])[address] [place] [address] Potassium [Moles/Vol] 4.0 mmol/L Normal 3.5-5.1 [facility] Comment on above: Result Comment: [facility] potassium values may be up to 0.5 mmol/L lower than serum values. Performed By: #### L AB15 ####Detective Chief: PHILLY FRANCO ([phone])[facility])[address] [place] [address] Sodium [Moles/Vol] 135 mmol/L Low 136-145 [facility] Comment on above: Performed By: #### L AB15 ####Detective Chief: PHILLY FRANCO ([phone])[address] Urea nitrogen [Mass/Vol] 18 mg/dL Normal 9-23 [facility] Comment on above: Performed By: #### L AB15 ####Detective Chief: PHILLY FRANCO ([phone])[address] Basic metabolic 1998 panelon 11-08-2024 Anion gap [Moles/Vol] 6 mmol/L 3 - 13 mmol/L [facility] Calcium [Mass/Vol] 7.2 mg/dL Low 8.8 - 10. 0 mg/dL [facility] Chloride [Moles/Vol] 103 mmol/L 98 - 10 7 mmol/L [facility] CO2 [Moles/Vol] 26 mmol/L 23 - 31 mmol/L [facility] Creatinine [Mass/Vol] 2.91 mg/dL High 0.57 - 1.11 mg/dL [facility] GFR/1.73 sq M.predicted (S/P/Bld) [Vol rate/Area] 16.4 mL/min Low - PINF [facility] Glucose [Mass/Vol] 67 mg/dL Low 82 - 115 mg/dL [facility] Interpretation and review of laboratory results Abnormal [facility] Potassium [Moles/Vol] 4 mmol/L 3.5 - 5.1 mmol/L [facility] Sodium [Moles/Vol] 135 mmol/L Low 136 - 145 mmol/L [facility] Urea nitrogen [Mass/Vol] 18 mg/dL 9 - 23 mg/dL [facility] CBC W Auto Differential pane l (Bld)on 11-08-2024 Basophils (Bld) [#/Vol] 0.1 10*3/uL 0.0 - 0.2 10*3/uL [facility] Basophils/100 WBC (Bld) 0.9 % 0.0 - 2.0 % [facility] Eosinophils (Bld) [#/Vol] 0.5 10*3/uL 0.0 - 0.5 10*3/uL [facility] Eosinophils/100 WBC (Bld) 4.1 % 0.0 - 6.0 % [facility] Erythrocyte distribution width (RBC) [Ratio] 17 % High 11.5 - 15.0 % [facility] Hematocrit (Bld) [Volume fraction] 23.1 % Low 35.0 - 47.0 % [facility] Hemoglobin (Bld) [Mass/Vol] 7.5 g/dL Low 11.7 - 16.0 g/dL [facility] Immature granulocytes (Bld) [#/Vol] 0.1 10*3/uL High NINF - 0.1 10*3/uL [facility] Immature granulocytes/100 WBC (Bld) 0.5 % 0.0 - 2.0 % [facility] Interpretation and review of laboratory results Abnormal [facility] Lymphocytes (Bld) [#/Vol] 2.2 10*3/uL 1.0 - 4.3 10*3/uL [facility] Lymphocytes/100 WBC (Bld) 16.6 % 15.0 - 45.0 % [facility] MCH (RBC) [Entitic mass] 28.8 pg 26.0 - 34.0 pg [facility] MCHC (RBC) [Mass/Vol] 32.5 % 30.5 - 36.0 % [facility] MCV (RBC) [Entitic vol] 88.8 fL 77.0 - 99.0 fL [facility] Monocytes (Bld) [#/Vol] 0.9 10*3/uL 0.0 - 0.9 10*3/uL [facility] Monocytes/100 WBC (Bld) 6.9 % 5.0 - 13.0 % [facility] Neutrophils (Bld) [#/Vol] 9.2 10*3/uL High 1.8 - 7.5 10*3/uL [facility] Neutrophils/100 WBC (Bld) 71 % 38.0 - 82.0 % [facility] Nucleated RBC/100 WBC (Bld) [Ratio] 0 % [facility] Platelet mean volume (Bld) [Entitic vol] 10.3 fL 9.0 - 12.7 fL [facility] Platelets (Bld) [#/Vol] 376 10*3/uL 140 - 440 10*3/uL [facility] RBC (Bld) [#/Vol] 2.6 10*6/uL Low 3.80 - 5.2 0 10*6/uL [facility] WBC (Bld) [#/Vol] 13 10*3/uL High 3.6 - 10.7 10*3/uL [facility] CBC WITH AUTO DIFFERENTIALon 11-08-2024 Basophils (Bld) [#/Vol] 0.1 10*3/uL Normal 0.0-0.2 [facility] Comment on above: Performed By: #### L [id number] ####Detective Chief: PHILLY FRANCO ([phone])[address] Basophils/100 WBC (Bld) 0.9 % Normal 0.0-2.0 [facility] Comment on above: Performed By: #### L [id number] ####Detective Chief: PHILLY FRANCO ([phone])[facility])[address] [place] [address] Eosinophils (Bld) [#/Vol] 0.5 10*3/uL Normal 0.0-0.5 [facility] Comment on above: Performed By: #### L [id number] ####Detective Chief: PHILLY FRANCO ([phone])[facility])[address] [place] [address] Eosinophils/100 WBC (Bld) 4.1 % Normal 0.0-6.0 [facility] Comment on above: Performed By: #### L [id number] ####Detective Chief: PHILLY FRANCO ([phone])[address] Erythrocyte distribution width (RBC) [Ratio] 17.0 % High 11.5-15.0 [facility] Comment on above: Performed By: #### L [id number] ####Detective Chief: PHILLY FRANCO ([phone])[facility])[address] [place] [address] Hematocrit (Bld) [Volume fraction] 23.1 % Low 35.0-47.0 [facility] Comment on above: Performed By: #### L [id number] ####Detective Chief: PHILLY FRANCO ([id number])[address] Hemoglobin (Bld) [Mass/Vol] 7.5 g/dL Low 11.7-16.0 [facility] Comment on above: Performed By: #### L [id number] ####Detective Chief: PHILLY FRANCO ([phone])[facility])[address] [place] [address] IMMATURE GRANS % 0.5 % Normal 0.0-2.0 [facility] Comment on above: Performed By: #### L [id number] ####Detective Chief: PHILLY FRANCO ([phone])[address] IMMATURE GRANS ABSOLUTE 0.1 10*3/uL High <0.1 [facility] Comment on above: Performed By: #### L [id number] ####Detective Chief: PHILLY FRANCO ([phone])[facility])[address] [place] [address] Lymphocytes (Bld) [#/Vol] 2.2 10*3/uL Normal 1.0-4.3 [facility] Comment on above: Performed By: #### L [id number] ####Detective Chief: PHILLY FRANCO ([phone])[facility])[address] [place] [address] Lymphocytes/100 WBC (Bld) 16.6 % Normal 15.0-45.0 [facility] Comment on above: Performed By: #### L [id number] ####Detective Chief: PHILLY FRANCO ([phone])[facility])[address] [place] [address] MCH (RBC) [Entitic mass] 28.8 pg Normal 26.0-34.0 [facility] Comment on above: Performed By: #### L [id number] ####Detective Chief: PHILLY FRANCO ([phone])[facility])[address] [place] [address] MCHC 32.5 % Normal 30.5-36.0 [facility] Comment on above: Performed By: #### L [id number] ####Detective Chief: PHILLY FRANCO ([phone])[facility])[address] [place] [address] MCV (RBC) [Entitic vol] 88.8 fL Normal 77.0-99.0 [facility] Comment on above: Performed By: #### L [id number] ####Detective Chief: PHILLY FRANCO ([phone])[facility])[address] [place] [address] Monocytes (Bld) [#/Vol] 0.9 10*3/uL Normal 0.0-0.9 [facility] Comment on above: Performed By: #### L [id number] ####Detective Chief: PHILLY FRANCO ([phone])[facility] ([facility])[address] [place] [address] Monocytes/100 WBC (Bld) 6.9 % Normal 5.0-13.0 [facility] Comment on above: Performed By: #### L [id number] ####Detective Chief: PHILLY FRANCO ([phone])[facility] ([facility])[address] [place] [address] NEUTROPHILS ABSOLUTE 9.2 10*3/uL High 1.8-7.5 [facility] Comment on above: Performed By: #### L [id number] ####Detective Chief: PHILLY FRANCO ([phone])[facility] ([facility])[address] [place] [address] Neutrophils/100 WBC (Bld) 71.0 % Normal 38.0-82.0 [facility] Comment on above: Performed By: #### L [id number] ####Detective Chief: PHILLY FRANCO ([phone])[facility] ([facility])[address] [place] [address] NRBC 0.0 /100 WBCs Normal 0.0-2.0 [facility] Comment on above: Performed By: #### L [id number] ####Detective Chief: PHILLY FRANCO ([phone])[facility] ([facility])[address] [place] [address] Platelet mean volume (Bld) [Entitic vol] 10.3 fL Normal 9.0-12.7 [facility] Comment on above: Performed By: #### L [id number] ####Detective Chief: PHILLY FRANCO ([phone])[facility] ([facility])[address] [place] [address] [place] Platelets (Bld) [#/Vol] 376 10*3/uL Normal 140-440 [facility] Comment on above: Performed By: #### L [id number] ####Detective Chief: PHILLY FRANCO ([phone])[facility] [place] [address] RBC (Bld) [#/Vol] 2.60 10*6/uL Low 3.80-5.20 [facility] Comment on above: Performed By: #### L [id number] ####Detective Chief: PHILLY FRANCO ([id number])[facility] ([facility])[address] [place] [address] WBC (Bld) [#/Vol] 13.0 10*3/uL High 3.6-10.7 [facility] Comment on above: Performed By: #### L [id number] ####Detective Chief: PHILLY FRANCO ([phone])[facility])[address] [place] [address] Laboratory - Chemistry and C hemistry - challengeon 11-08-2024 Glucose [Mass/Vol] 117 mg/dL High 70 - 100 mg/dL [facility] No Panel Informationon 11-08 Interpretation and review of laboratory results Abnormal [facility] Nursing Noteon 11-08-2024 Nursing Note Blood sugar 67 orang e juice given pt resting quietly , denies any s/s of hypoglycemia. Normal [facility] Progress Noteon 11-08-2024 Progress Note Normal [facility] Progress Note Normal [facility] [id number] 11-07-[id number] [facility] aut h yesterday and that they started a new auth today. Normal [facility] [id number] Normal [facility] BASIC METABOLIC PANELon Anion gap [Moles/Vol] 11 mmol/L Normal 3-13 [facility] Comment on above: Performed By: #### L [id number] ####Detective Chief: PHILLY FRANCO ([phone])[facility] ([facility])[address] [place] [address] Calcium [Mass/Vol] 7.2 mg/dL Low 8.8-10.0 [facility] Comment on above: Performed By: #### L [id number] ####Detective Chief: PHILLY FRANCO ([phone])[facility])[address] [place] [address] Chloride [Moles/Vol] 105 mmol/L Normal 98-107 [facility] Comment on above: Performed By: #### L [id number] ####Detective Chief: PHILLY FRANCO ([phone])[facility])[address] [place] [address] CO2 [Moles/Vol] 23 mmol/L Normal 23-31 [facility] Comment on above: Performed By: #### L [id number] ####Detective Chief: PHILLY FRANCO ([phone])[facility])[address] [place] [address] Creatinine [Mass/Vol] 4.35 mg/dL High 0.57-1.11 [facility] Comment on above: Performed By: #### L [id number] ####Detective Chief: PHILLY FRANCO ([phone])[facility])[address] [place] [address] GLOMERULAR FILTRATION RATE ML/MIN/1.73 SQ M.PREDICTED 10.1 mL/min/1.73m*2 Low >60.0 [facility] Comment on above: Result Comment: Calc ulation based on the Chronic Kidney Disease Epidemiology Collaboration (CKD-EPI) equation refit without adjustment for race Performed By: #### L [id number] ####Detective Chief: PHILLY FRANCO ([phone])[facility])[address] [place] [address] Glucose [Mass/Vol] 82 mg/dL Normal 82-115 [facility] Comment on above: Performed By: #### L [id number] ####Detective Chief: PHILLY FRANCO ([phone])[facility])[address] [place] [address] Potassium [Moles/Vol] 4.8 mmol/L Normal 3.5-5.1 [facility] Comment on above: Result Comment: [facility] potassium values may be up to 0.5 mmol/L lower than serum values. Performed By: #### L [id number] ####Detective Chief: PHILLY FRANCO ([phone])[facility] ([facility])[address] [place] [address] Sodium [Moles/Vol] 139 mmol/L Normal 136-145 [facility] Comment on above: Performed By: #### L [id number] ####Detective Chief: PHILLY FRANCO ([id number])[facility] ([facility])[address] [place] [address] Urea nitrogen [Mass/Vol] 37 mg/dL High 9-23 [facility] Comment on above: Performed By: #### L [id number] ####Detective Chief: PHILLY FRANCO ([id number])[facility] ([facility])[address] [place] [address] Bacteria identified Anaer cx Nom (Unsp spec)on 11-07-2024 Interpretation and review of laboratory results Normal [facility] Interpretation and review of laboratory results Normal [facility] Basic metabolic 1998 panelon 11-07-2024 Anion gap [Moles/Vol] 11 mmol/L 3 - 13 mmol/L [facility] Calcium [Mass/Vol] 7.2 mg/dL Low 8.8 - 10. 0 mg/dL [facility] Chloride [Moles/Vol] 105 mmol/L 98 - 10 7 mmol/L [facility] CO2 [Moles/Vol] 23 mmol/L 23 - 31 mmol/L [facility] Creatinine [Mass/Vol] 4.35 mg/dL High 0.57 - 1.11 mg/dL [facility] GFR/1.73 sq M.predicted (S/P/Bld) [Vol rate/Area] 10.1 mL/min Low - PINF [facility] Glucose [Mass/Vol] 82 mg/dL 82 - 115 mg/dL [facility] Interpretation and review of laboratory results Abnormal [facility] Potassium [Moles/Vol] 4.8 mmol/L 3.5 - 5.1 mmol/L [facility] Sodium [Moles/Vol] 139 mmol/L 136 - 145 mmol/L [facility] Urea nitrogen [Mass/Vol] 37 mg/dL High 9 - 23 mg/dL [facility] CBC W Auto Differential pane l (Bld)on 11-07-2024 Basophils (Bld) [#/Vol] 0.1 10*3/uL 0.0 - 0.2 10*3/uL [facility] Basophils/100 WBC (Bld) 1 % 0.0 - 2.0 % [facility] Eosinophils (Bld) [#/Vol] 0.7 10*3/uL High 0.0 - 0.5 10*3/uL [facility] Eosinophils/100 WBC (Bld) 4.7 % 0.0 - 6.0 % [facility] Erythrocyte distribution width (RBC) [Ratio] 17.5 % High 11.5 - 15.0 % [facility] Hematocrit (Bld) [Volume fraction] 23.6 % Low 35.0 - 47.0 % [facility] Hemoglobin (Bld) [Mass/Vol] 7.6 g/dL Low 11.7 - 16.0 g/dL [facility] Immature granulocytes (Bld) [#/Vol] 0.1 10*3/uL High NINF - 0.1 10*3/uL [facility] Immature granulocytes/100 WBC (Bld) 0.6 % 0.0 - 2.0 % [facility] Interpretation and review of laboratory results Abnormal [facility] Lymphocytes (Bld) [#/Vol] 3.1 10*3/uL 1.0 - 4.3 10*3/uL [facility] Lymphocytes/100 WBC (Bld) 22.2 % 15.0 - 45.0 % [facility] MCH (RBC) [Entitic mass] 28.6 pg 26.0 - 34.0 pg [facility] MCHC (RBC) [Mass/Vol] 32.2 % 30.5 - 36.0 % [facility] MCV (RBC) [Entitic vol] 88.7 fL 77.0 - 99.0 fL [facility] Monocytes (Bld) [#/Vol] 1 10*3/uL High 0.0 - 0.9 10*3/uL [facility] Monocytes/100 WBC (Bld) 6.8 % 5.0 - 13.0 % [facility] Neutrophils (Bld) [#/Vol] 9.1 10*3/uL High 1.8 - 7.5 10*3/uL [facility] Neutrophils/100 WBC (Bld) 64.7 % 38.0 - 82.0 % [facility] Nucleated RBC/100 WBC (Bld) [Ratio] 0 % [facility] Platelet mean volume (Bld) [Entitic vol] 10.5 fL 9.0 - 12.7 fL [facility] Platelets (Bld) [#/Vol] 377 10*3/uL 140 - 440 10*3/uL [facility] RBC (Bld) [#/Vol] 2.66 10*6/uL Low 3.80 - 5.2 0 10*6/uL [facility] WBC (Bld) [#/Vol] 14.1 10*3/uL High 3.6 - 10.7 10*3/uL [facility] CBC WITH AUTO DIFFERENTIALon 11-07-2024 Basophils (Bld) [#/Vol] 0.1 10*3/uL Normal 0.0-0.2 [facility] Comment on above: Performed By: #### L [id number] ####Detective Chief: PHILLY FRANCO ([phone])[facility])[address] [place] [address] Basophils/100 WBC (Bld) 1.0 % Normal 0.0-2.0 [facility] Comment on above: Performed By: #### L [id number] ####Detective Chief: PHILLY FRANCO ([phone])[facility])[address] [place] [address] Eosinophils (Bld) [#/Vol] 0.7 10*3/uL High 0.0-0.5 [facility] Comment on above: Performed By: #### L [id number] ####Detective Chief: PHILLY FRANCO ([id number])[facility])[address] [place] [address] Eosinophils/100 WBC (Bld) 4.7 % Normal 0.0-6.0 [facility] Comment on above: Performed By: #### L [id number] ####Detective Chief: PHILLY FRANCO ([phone])[facility])[address] [place] [address] Erythrocyte distribution width (RBC) [Ratio] 17.5 % High 11.5-15.0 [facility] Comment on above: Performed By: #### L [id number] ####Detective Chief: PHILLY FRANCO ([phone])[facility])[address] [place] [address] Hematocrit (Bld) [Volume fraction] 23.6 % Low 35.0-47.0 [facility] Comment on above: Performed By: #### L [id number] ####Detective Chief: PHILLY FRANCO ([phone])[facility])[address] [place] [address] Hemoglobin (Bld) [Mass/Vol] 7.6 g/dL Low 11.7-16.0 [facility] Comment on above: Performed By: #### L [id number] ####Detective Chief: PHILLY FRANCO ([phone])[facility])[address] [place] [address] IMMATURE GRANS % 0.6 % Normal 0.0-2.0 [facility] Comment on above: Performed By: #### L [id number] ####Detective Chief: PHILLY FRANCO ([phone])[facility])[address] [place] [address] IMMATURE GRANS ABSOLUTE 0.1 10*3/uL High <0.1 [facility] Comment on above: Performed By: #### L [id number] ####Detective Chief: PHILLY FRANCO ([id number])[facility])[address] [place] [address] Lymphocytes (Bld) [#/Vol] 3.1 10*3/uL Normal 1.0-4.3 [facility] Comment on above: Performed By: #### L [id number] ####Detective Chief: PHILLY FRANCO ([phone])[facility])[address] [place] [address] Lymphocytes/100 WBC (Bld) 22.2 % Normal 15.0-45.0 [facility] Comment on above: Performed By: #### L [id number] ####Detective Chief: PHILLY FRANCO ([phone])[facility])[address] [place] [address] MCH (RBC) [Entitic mass] 28.6 pg Normal 26.0-34.0 [facility] Comment on above: Performed By: #### L [id number] ####Detective Chief: PHILLY FRANCO ([phone])[facility])[address] [place] [address] MCHC 32.2 % Normal 30.5-36.0 [facility] Comment on above: Performed By: #### L [id number] ####Detective Chief: PHILLY FRANCO ([phone])[facility])[address] [place] [address] MCV (RBC) [Entitic vol] 88.7 fL Normal 77.0-99.0 [facility] Comment on above: Performed By: #### L [id number] ####Detective Chief: PHILLY FRANCO ([phone])[facility])[address] [place] [address] Monocytes (Bld) [#/Vol] 1.0 10*3/uL High 0.0-0.9 [facility] Comment on above: Performed By: #### L [id number] ####Detective Chief: PHILLY FRANCO ([phone])[facility])[address] [place] [address] Monocytes/100 WBC (Bld) 6.8 % Normal 5.0-13.0 [facility] Comment on above: Performed By: #### L [id number] ####Detective Chief: PHILLY FRANCO ([phone])[facility])[address] [place] [address] NEUTROPHILS ABSOLUTE 9.1 10*3/uL High 1.8-7.5 [facility] Comment on above: Performed By: #### L [id number] ####Detective Chief: PHILLY FRANCO ([phone])[facility] [place] [address] Neutrophils/100 WBC (Bld) 64.7 % Normal 38.0-82.0 [facility] Comment on above: Performed By: #### L [id number] ####Detective Chief: PHILLY FRANCO ([phone])[facility] ([facility])[address] [place] [address] NRBC 0.0 /100 WBCs Normal 0.0-2.0 [facility] Comment on above: Performed By: #### L [id number] ####Detective Chief: PHILLY FRANCO ([id number])[facility] ([facility])[address] [place] [address] Platelet mean volume (Bld) [Entitic vol] 10.5 fL Normal 9.0-12.7 [facility] Comment on above: Performed By: #### L [id number] ####Detective Chief: PHILLY FRANCO ([phone])[facility] ([facility])[address] [place] [address] Platelets (Bld) [#/Vol] 377 10*3/uL Normal 140-440 [facility] Comment on above: Performed By: #### L [id number] ####Detective Chief: PHILLY FRANCO ([id number])[facility] ([facility])[address] [place] [address] RBC (Bld) [#/Vol] 2.66 10*6/uL Low 3.80-5.20 [facility] Comment on above: Performed By: #### L [id number] ####Detective Chief: PHILLY FRANCO ([phone])[facility] ([facility])[address] [place] [address] WBC (Bld) [#/Vol] 14.1 10*3/uL High 3.6-10.7 [facility] Comment on above: Performed By: #### L [id number] ####Detective Chief: PHILLY FRANCO ([phone])[facility] ([facility])[address] [place] [address] Laboratory - Microbiology an d Antimicrobial susceptibilityon 11-07-2024 Bacteria identified Anaer cx Nom (Unsp spec) No growth at 5 days [facility] Bacteria identified Anaer cx Nom (Unsp spec) No growth at 5 days [facility] Nursing Noteon 11-07-2024 Nursing Note Normal [facility] Progress Noteon 11-07-2024 Progress Note Normal [facility] Progress Note Normal [facility] Progress Note Normal [facility] Progress Note Normal [facility] [id number] 11-06-2024 [id number] Updated notes sent t o [facility] [place] [facility] [place] via [facility] per [facility] request. Await review and response regarding ability to accept. TCC notified. [facility] [phone] [facility] messaged to send updates to [facility] with request to start auth to return. Normal [facility] [id number] Normal [facility] BASIC METABOLIC PANELon 08-0 Anion gap [Moles/Vol] 9 mmol/L Normal 3-13 [facility] Comment on above: Performed By: #### L [id number] ####Detective Chief: PHILLY FRANCO ([phone])[facility] ([facility])[address] [place] [address] [place] Calcium [Mass/Vol] 7.3 mg/dL Low 8.8-10.0 [facility] Comment on above: Performed By: #### L AB15 ####Detective Chief: PHILLY FRANOC ([phone])[facility] ([facility])[address] [place] [address] [place] Chloride [Moles/Vol] 105 mmol/L Normal 98-107 [facility] Comment on above: Performed By: #### L AB15 ####Detective Chief: PHILLY FRANCO ([phone])[facility] ([facility])[address] [place] [address] [place] CO2 [Moles/Vol] 24 mmol/L Normal 23-31 [facility] Comment on above: Performed By: #### L AB15 ####Detective Chief: PHILLY FRANCO ([phone])[facility] ([facility])[address] [place] [address] Creatinine [Mass/Vol] 3.50 mg/dL High 0.57-1.11 [facility] Comment on above: Performed By: #### L AB15 ####Detective Chief: PHILLY FRANCO ([id number])[facility] ([facility])[address] [place] [address] Basic metabolic 1998 panelon 11-06-2024 Anion gap [Moles/Vol] 9 mmol/L 3 - 13 mmol/L [facility] Calcium [Mass/Vol] 7.3 mg/dL Low 8.8 - 10. 0 mg/dL [facility] Chloride [Moles/Vol] 105 mmol/L 98 - 10 7 mmol/L [facility] CO2 [Moles/Vol] 24 mmol/L 23 - 31 mmol/L [facility] Creatinine [Mass/Vol] 3.5 mg/dL High 0.57 - 1.11 mg/dL [facility] GFR/1.73 sq M.predicted (S/P/Bld) [Vol rate/Area] 13.2 mL/min Low - PINF [facility] Glucose [Mass/Vol] 123 mg/dL High 82 - 115 mg/dL [facility] Interpretation and review of laboratory results Abnormal [facility] Potassium [Moles/Vol] 4.7 mmol/L 3.5 - 5.1 mmol/L [facility] Sodium [Moles/Vol] 138 mmol/L 136 - 145 mmol/L [facility] Urea nitrogen [Mass/Vol] 24 mg/dL High 9 - 23 mg/dL [facility] CBC W Auto Differential pane l (Bld)on 11-06-2024 Basophils (Bld) [#/Vol] 0.1 10*3/uL 0.0 - 0.2 10*3/uL [facility] Basophils/100 WBC (Bld) 0.6 % 0.0 - 2.0 % [facility] Eosinophils (Bld) [#/Vol] 0 10*3/uL 0.0 - 0.5 10*3/uL [facility] Eosinophils/100 WBC (Bld) 0.1 % 0.0 - 6.0 % [facility] Erythrocyte distribution width (RBC) [Ratio] 17.4 % High 11.5 - 15.0 % [facility] Hematocrit (Bld) [Volume fraction] 27.6 % Low 35.0 - 47.0 % [facility] Hemoglobin (Bld) [Mass/Vol] 9.3 g/dL Low 11.7 - 16.0 g/dL [facility] Immature granulocytes (Bld) [#/Vol] 0.1 10*3/uL High NINF - 0.1 10*3/uL [facility] Immature granulocytes/100 WBC (Bld) 0.6 % 0.0 - 2.0 % [facility] Interpretation and review of laboratory results Abnormal [facility] Lymphocytes (Bld) [#/Vol] 2.3 10*3/uL 1.0 - 4.3 10*3/uL [facility] Lymphocytes/100 WBC (Bld) 14.8 % Low 15.0 - 45.0 % [facility] MCH (RBC) [Entitic mass] 28.8 pg 26.0 - 34.0 pg [facility] MCHC (RBC) [Mass/Vol] 33.7 % 30.5 - 36.0 % [facility] MCV (RBC) [Entitic vol] 85.4 fL 77.0 - 99.0 fL [facility] Monocytes (Bld) [#/Vol] 1 10*3/uL High 0.0 - 0.9 10*3/uL [facility] Monocytes/100 WBC (Bld) 6.1 % 5.0 - 13.0 % [facility] Neutrophils (Bld) [#/Vol] 12.2 10*3/uL High 1.8 - 7.5 10*3/uL [facility] Neutrophils/100 WBC (Bld) 77.8 % 38.0 - 82.0 % [facility] Nucleated RBC/100 WBC (Bld) [Ratio] 0 % [facility] Platelet mean volume (Bld) [Entitic vol] 10.6 fL 9.0 - 12.7 fL [facility] Platelets (Bld) [#/Vol] 388 10*3/uL 140 - 440 10*3/uL [facility] RBC (Bld) [#/Vol] 3.23 10*6/uL Low 3.80 - 5.2 0 10*6/uL [facility] WBC (Bld) [#/Vol] 15.6 10*3/uL High 3.6 - 10.7 10*3/uL [facility] Progress Noteon 11-06-2024 Progress Note Normal [facility] Progress Note Normal [facility] Progress Note Normal [facility] Progress Note Normal [facility] Progress Note Normal [facility] Bacteria identified Aer cx N om (Unsp spec)on 11-05-2024 Gram Stain Result Moderate Polymorphonuclear leukocytes per low power field [facility] Gram Stain Result No organisms seen [facility] Bacteria identified Aer cx N om (Unsp spec)Ordered By: Te Laguna on 11-05-2024 Gram Stain Result Few Polymorphonuclea r leukocytes per low power field [facility] Gram Stain Result No organisms seen [facility] Basic metabolic 1998 panelon 11-05-2024 Anion gap [Moles/Vol] 9 mmol/L 3 - 13 mmol/L [facility] Calcium [Mass/Vol] 7.3 mg/dL Low 8.8 - 10. 0 mg/dL [facility] Chloride [Moles/Vol] 104 mmol/L 98 - 10 7 mmol/L [facility] CO2 [Moles/Vol] 25 mmol/L 23 - 31 mmol/L [facility] Creatinine [Mass/Vol] 2.53 mg/dL High 0.57 - 1.11 mg/dL [facility] GFR/1.73 sq M.predicted (S/P/Bld) [Vol rate/Area] 19.4 mL/min Low - PINF [facility] Glucose [Mass/Vol] 66 mg/dL Low 82 - 115 mg/dL [facility] Interpretation and review of laboratory results Abnormal [facility] Potassium [Moles/Vol] 3.8 mmol/L 3.5 - 5.1 mmol/L [facility] Sodium [Moles/Vol] 138 mmol/L 136 - 145 mmol/L [facility] Urea nitrogen [Mass/Vol] 13 mg/dL 9 - 23 mg/dL [facility] Blood type and Crossmatch pa kojo (Bld)on 11-05-2024 ABO group Nom (Bld) O [facility] Blood group antibody screen GEL Ql Negative [facility] D Ag Ql (RBC) Positive [facility] CBC W Auto Differential pane l (Bld)Ordered By: Beatriz Morales on 11-05-2024 Basophils (Bld) [#/Vol] 0.1 10*3/uL 0.0 - 0.2 10*3/uL [facility] Basophils/100 WBC (Bld) 0.8 % 0.0 - 2.0 % [facility] Eosinophils (Bld) [#/Vol] 0.8 10*3/uL High 0.0 - 0.5 10*3/uL [facility] Eosinophils/100 WBC (Bld) 5.1 % 0.0 - 6.0 % [facility] Erythrocyte distribution width (RBC) [Ratio] 17.3 % High 11.5 - 15.0 % [facility] Hematocrit (Bld) [Volume fraction] 20.3 % Low 35.0 - 47.0 % [facility] Hemoglobin (Bld) [Mass/Vol] 6.6 g/dL Critically low 11.7 - 16.0 g/dL [facility] Immature granulocytes (Bld) [#/Vol] 0.1 10*3/uL High NINF - 0.1 10*3/uL [facility] Immature granulocytes/100 WBC (Bld) 0.6 % 0.0 - 2.0 % [facility] Interpretation and review of laboratory results Abnormal [facility] Lymphocytes (Bld) [#/Vol] 2.2 10*3/uL 1.0 - 4.3 10*3/uL [facility] Lymphocytes/100 WBC (Bld) 14.8 % Low 15.0 - 45.0 % [facility] MCH (RBC) [Entitic mass] 28.4 pg 26.0 - 34.0 pg [facility] MCHC (RBC) [Mass/Vol] 32.5 % 30.5 - 36.0 % [facility] MCV (RBC) [Entitic vol] 87.5 fL 77.0 - 99.0 fL [facility] [facility] Monocytes (Bld) [#/Vol] 0.9 10*3/uL 0.0 - 0.9 10*3/uL [facility] Monocytes/100 WBC (Bld) 6.2 % 5.0 - 13.0 % [facility] Neutrophils (Bld) [#/Vol] 10.6 10*3/uL High 1.8 - 7.5 10*3/uL [facility] Neutrophils/100 WBC (Bld) 72.5 % 38.0 - 82.0 % [facility] Nucleated RBC/100 WBC (Bld) [Ratio] 0 % [facility] Platelet mean volume (Bld) [Entitic vol] 10.9 fL 9.0 - 12.7 fL [facility] Platelets (Bld) [#/Vol] 391 10*3/uL 140 - 440 10*3/uL [facility] RBC (Bld) [#/Vol] 2.32 10*6/uL Low 3.80 - 5.2 0 10*6/uL [facility] WBC (Bld) [#/Vol] 14.6 10*3/uL High 3.6 - 10.7 10*3/uL [facility] Hemoglobin (Bld) [Mass/Vol]O rdered By: Emily Hernández on 11-05-2024 Hematocrit (Bld) [Volume fraction] 28.2 % Low 35.0 - 47.0 % [facility] Interpretation and review of laboratory results Abnormal [facility] Hemoglobin (Bld) [Mass/Vol]o n 11-05-2024 Hematocrit (Bld) [Volume fraction] 18 % Low 35.0 - 47.0 % [facility] Interpretation and review of laboratory results Abnormal [facility] Laboratory - Hematology and Cell countsOrdered By: Emily Hernández on 11-05-2024 Hemoglobin (Bld) [Mass/Vol] 9.4 g/dL Low 11.7 - 16.0 g/dL [facility] Laboratory - Hematology and Cell countson 11-05-2024 Hemoglobin (Bld) [Mass/Vol] 5.8 g/dL Critically low 11.7 - 16.0 g/dL [facility] Laboratory - Microbiology an d Antimicrobial susceptibilityon 11-05-2024 Bacteria identified Aer cx Nom (Unsp spec) No growth at 72 hours [facility] Laboratory - Microbiology an d Antimicrobial susceptibilityOrdered By: Te Laguna on 11-05-2024 Bacteria identified Aer cx Nom (Unsp spec) No growth at 72 hours [facility] No Panel Informationon 11-05 Blood Expiration Date [id number] [facility] Crossmatch interpretation COMP [facility] Dispense Status Transfused [facility] Product Blood Type 5100 [facility] PRODUCT CODE [id number] [facility] ABO O [facility] Number [id number] [facility] RH Positive [facility] Volume 300 mL [facility] Blood Expiration Date [id number] [facility] Crossmatch interpretation COMP [facility] Dispense Status Released from Crossmatch [facility] Product Blood Type 5100 [facility] PRODUCT CODE [id number] [facility] ABO O [facility] Unit Number [id number] [facility] RH Positive [facility] Volume 300 mL [facility] Basic metabolic 1998 panelon 11-04-2024 Anion gap [Moles/Vol] 11 mmol/L 3 - 13 mmol/L [facility] Calcium [Mass/Vol] 7.2 mg/dL Low 8.8 - 10. 0 mg/dL [facility] Chloride [Moles/Vol] 104 mmol/L 98 - 10 7 mmol/L [facility] CO2 [Moles/Vol] 24 mmol/L 23 - 31 mmol/L [facility] Creatinine [Mass/Vol] 3.47 mg/dL High 0.57 - 1.11 mg/dL [facility] GFR/1.73 sq M.predicted (S/P/Bld) [Vol rate/Area] 13.3 mL/min Low - PINF [facility] Glucose [Mass/Vol] 79 mg/dL Low 82 - 115 mg/dL [facility] Interpretation and review of laboratory results Abnormal [facility] Potassium [Moles/Vol] 4 mmol/L 3.5 - 5.1 mmol/L [facility] Sodium [Moles/Vol] 139 mmol/L 136 - 145 mmol/L [facility] Urea nitrogen [Mass/Vol] 25 mg/dL High 9 - 23 mg/dL [facility] CBC W Auto Differential pane l (Bld)on 11-04-2024 Basophils (Bld) [#/Vol] 0.1 10*3/uL 0.0 - 0.2 10*3/uL [facility] Basophils/100 WBC (Bld) 0.8 % 0.0 - 2.0 % [facility] Eosinophils (Bld) [#/Vol] 0.5 10*3/uL 0.0 - 0.5 10*3/uL [facility] Eosinophils/100 WBC (Bld) 3.1 % 0.0 - 6.0 % [facility] Erythrocyte distribution width (RBC) [Ratio] 18 % High 11.5 - 15.0 % [facility] Hematocrit (Bld) [Volume fraction] 23 % Low 35.0 - 47.0 % [facility] Hemoglobin (Bld) [Mass/Vol] 7.7 g/dL Low 11.7 - 16.0 g/dL [facility] Immature granulocytes (Bld) [#/Vol] 0.1 10*3/uL High NINF - 0.1 10*3/uL [facility] Immature granulocytes/100 WBC (Bld) 0.6 % 0.0 - 2.0 % [facility] Interpretation and review of laboratory results Abnormal [facility] Lymphocytes (Bld) [#/Vol] 2.5 10*3/uL 1.0 - 4.3 10*3/uL [facility] Lymphocytes/100 WBC (Bld) 15.9 % 15.0 - 45.0 % [facility] MCH (RBC) [Entitic mass] 28.9 pg 26.0 - 34.0 pg [facility] MCHC (RBC) [Mass/Vol] 33.5 % 30.5 - 36.0 % [facility] MCV (RBC) [Entitic vol] 86.5 fL 77.0 - 99.0 fL [facility] Monocytes (Bld) [#/Vol] 0.9 10*3/uL 0.0 - 0.9 10*3/uL [facility] Monocytes/100 WBC (Bld) 5.9 % 5.0 - 13.0 % [facility] Neutrophils (Bld) [#/Vol] 11.4 10*3/uL High 1.8 - 7.5 10*3/uL [facility] Neutrophils/100 WBC (Bld) 73.7 % 38.0 - 82.0 % [facility] Nucleated RBC/100 WBC (Bld) [Ratio] 0 % [facility] Platelet mean volume (Bld) [Entitic vol] 10.6 fL 9.0 - 12.7 fL [facility] Platelets (Bld) [#/Vol] 372 10*3/uL 140 - 440 10*3/uL [facility] RBC (Bld) [#/Vol] 2.66 10*6/uL Low 3.80 - 5.2 0 10*6/uL [facility] WBC (Bld) [#/Vol] 15.5 10*3/uL High 3.6 - 10.7 10*3/uL [facility] CBC W Auto Differential pane l (Bld)Ordered By: nAdre Ervin on 11-04-2024 Basophils (Bld) [#/Vol] 0.1 10*3/uL 0.0 - 0.2 10*3/uL [facility] Basophils/100 WBC (Bld) 0.8 % 0.0 - 2.0 % [facility] Eosinophils (Bld) [#/Vol] 0.5 10*3/uL 0.0 - 0.5 10*3/uL [facility] Eosinophils/100 WBC (Bld) 2.7 % 0.0 - 6.0 % [facility] Erythrocyte distribution width (RBC) [Ratio] 18.3 % High 11.5 - 15.0 % [facility] Hematocrit (Bld) [Volume fraction] 20.2 % Low 35.0 - 47.0 % [facility] Hemoglobin (Bld) [Mass/Vol] 6.7 g/dL Critically low 11.7 - 16.0 g/dL [facility] Immature granulocytes (Bld) [#/Vol] 0.1 10*3/uL High NINF - 0.1 10*3/uL [facility] Immature granulocytes/100 WBC (Bld) 0.8 % 0.0 - 2.0 % [facility] Interpretation and review of laboratory results Abnormal [facility] Lymphocytes (Bld) [#/Vol] 2.8 10*3/uL 1.0 - 4.3 10*3/uL [facility] Lymphocytes/100 WBC (Bld) 16 % 15.0 - 45.0 % [facility] MCH (RBC) [Entitic mass] 28.5 pg 26.0 - 34.0 pg [facility] MCHC (RBC) [Mass/Vol] 33.2 % 30.5 - 36.0 % [facility] MCV (RBC) [Entitic vol] 86 fL 77.0 - 99.0 fL [facility] Monocytes (Bld) [#/Vol] 1 10*3/uL High 0.0 - 0.9 10*3/uL [facility] Monocytes/100 WBC (Bld) 5.9 % 5.0 - 13.0 % [facility] Neutrophils (Bld) [#/Vol] 12.7 10*3/uL High 1.8 - 7.5 10*3/uL [facility] Neutrophils/100 WBC (Bld) 73.8 % 38.0 - 82.0 % [facility] Nucleated RBC/100 WBC (Bld) [Ratio] 0 % [facility] Platelet mean volume (Bld) [Entitic vol] 10.7 fL 9.0 - 12.7 fL [facility] Platelets (Bld) [#/Vol] 394 10*3/uL 140 - 440 10*3/uL [facility] RBC (Bld) [#/Vol] 2.35 10*6/uL Low 3.80 - 5.2 0 10*6/uL [facility] WBC (Bld) [#/Vol] 17.2 10*3/uL High 3.6 - 10.7 10*3/uL [facility] Laboratory - Chemistry and C hemistry - challengeon 11-04-2024 Glucose [Mass/Vol] 93 mg/dL 70 - 100 mg/dL [facility] Glucose [Mass/Vol] 93 mg/dL 70 - 100 mg/dL [facility] No Panel Informationon 11-04 Interpretation and review of laboratory results Normal [facility] Interpretation and review of laboratory results Normal [facility] Basic metabolic 1998 panelOr dered By: Shauna Ayon on 11-03-2024 Anion gap [Moles/Vol] 12 mmol/L 3 - 13 mmol/L [facility] Calcium [Mass/Vol] 7.4 mg/dL Low 8.8 - 10. 0 mg/dL [facility] Chloride [Moles/Vol] 103 mmol/L 98 - 10 7 mmol/L [facility] CO2 [Moles/Vol] 21 mmol/L Low 23 - 31 mmol/L [facility] Creatinine [Mass/Vol] 2.68 mg/dL High 0.57 - 1.11 mg/dL [facility] GFR/1.73 sq M.predicted (S/P/Bld) [Vol rate/Area] 18.1 mL/min Low - PINF [facility] Glucose [Mass/Vol] 76 mg/dL Low 82 - 115 mg/dL [facility] Interpretation and review of laboratory results Abnormal [facility] Potassium [Moles/Vol] 3.9 mmol/L 3.5 - 5.1 mmol/L [facility] Sodium [Moles/Vol] 136 mmol/L 136 - 145 mmol/L [facility] Urea nitrogen [Mass/Vol] 16 mg/dL 9 - 23 mg/dL [facility] CBC W Auto Differential pane l (Bld)on 11-03-2024 Basophils (Bld) [#/Vol] 0.1 10*3/uL 0.0 - 0.2 10*3/uL [facility] Basophils/100 WBC (Bld) 0.6 % 0.0 - 2.0 % [facility] Eosinophils (Bld) [#/Vol] 0.2 10*3/uL 0.0 - 0.5 10*3/uL [facility] Eosinophils/100 WBC (Bld) 0.9 % 0.0 - 6.0 % [facility] Erythrocyte distribution width (RBC) [Ratio] 18.3 % High 11.5 - 15.0 % [facility] Hematocrit (Bld) [Volume fraction] 18.6 % Low 35.0 - 47.0 % [facility] Hemoglobin (Bld) [Mass/Vol] 6.1 g/dL Critically low 11.7 - 16.0 g/dL [facility] Immature granulocytes (Bld) [#/Vol] 0.1 10*3/uL High NINF - 0.1 10*3/uL [facility] Immature granulocytes/100 WBC (Bld) 0.6 % 0.0 - 2.0 % [facility] Interpretation and review of laboratory results Abnormal [facility] Lymphocytes (Bld) [#/Vol] 3.6 10*3/uL 1.0 - 4.3 10*3/uL [facility] Lymphocytes/100 WBC (Bld) 18.7 % 15.0 - 45.0 % [facility] MCH (RBC) [Entitic mass] 28.9 pg 26.0 - 34.0 pg [facility] MCHC (RBC) [Mass/Vol] 32.8 % 30.5 - 36.0 % [facility] MCV (RBC) [Entitic vol] 88.2 fL 77.0 - 99.0 fL [facility] Monocytes (Bld) [#/Vol] 1.4 10*3/uL High 0.0 - 0.9 10*3/uL [facility] Monocytes/100 WBC (Bld) 7.3 % 5.0 - 13.0 % [facility] Neutrophils (Bld) [#/Vol] 13.8 10*3/uL High 1.8 - 7.5 10*3/uL [facility] Neutrophils/100 WBC (Bld) 71.9 % 38.0 - 82.0 % [facility] Nucleated RBC/100 WBC (Bld) [Ratio] 0 % [facility] Platelet mean volume (Bld) [Entitic vol] 10.7 fL 9.0 - 12.7 fL [facility] Platelets (Bld) [#/Vol] 407 10*3/uL 140 - 440 10*3/uL [facility] RBC (Bld) [#/Vol] 2.11 10*6/uL Low 3.80 - 5.2 0 10*6/uL [facility] WBC (Bld) [#/Vol] 19.2 10*3/uL High 3.6 - 10.7 10*3/uL [facility] Hemoglobin (Bld) [Mass/Vol]O rdered By: Christy Carnes on 11-03-2024 Hematocrit (Bld) [Volume fraction] 26 % Low 35.0 - 47.0 % [facility] Interpretation and review of laboratory results Abnormal [facility] Laboratory - Chemistry and C hemistry - challengeon 11-03-2024 Glucose [Mass/Vol] 101 mg/dL High 70 - 100 mg/dL [facility] Glucose [Mass/Vol] 112 mg/dL High 70 - 100 mg/dL [facility] Glucose [Mass/Vol] 100 mg/dL 70 - 100 mg/dL [facility] Glucose [Mass/Vol] 95 mg/dL 70 - 100 mg/dL [facility] Laboratory - Hematology and Cell countsOrdered By: Christy Carnes on 11-03-2024 Hemoglobin (Bld) [Mass/Vol] 8.6 g/dL Low 11.7 - 16.0 g/dL [facility] No Panel Informationon 11-03 Interpretation and review of laboratory results Abnormal [facility] Interpretation and review of laboratory results Abnormal [facility] Blood Expiration Date [id number] [facility] Crossmatch interpretation COMP [facility] Dispense Status Transfused [facility] Product Blood Type 5100 [facility] PRODUCT CODE [id number] [facility] PRODUCT CODE [id number] [facility] Unit ABO O [facility] Unit Number [id number] [facility] RH Positive [facility] Volume 227 mL [facility] Volume 285 mL [facility] Interpretation and review of laboratory results Normal [facility] Interpretation and review of laboratory results Normal [facility] Basic metabolic 1998 panelon 11-02-2024 Anion gap [Moles/Vol] 11 mmol/L 3 - 13 mmol/L [facility] Calcium [Mass/Vol] 7.5 mg/dL Low 8.8 - 10. 0 mg/dL [facility] Chloride [Moles/Vol] 105 mmol/L 98 - 10 7 mmol/L [facility] CO2 [Moles/Vol] 20 mmol/L Low 23 - 31 mmol/L [facility] Creatinine [Mass/Vol] 3.99 mg/dL High 0.57 - 1.11 mg/dL [facility] GFR/1.73 sq M.predicted (S/P/Bld) [Vol rate/Area] 11.3 mL/min Low - PINF [facility] Glucose [Mass/Vol] 78 mg/dL Low 82 - 115 mg/dL [facility] Interpretation and review of laboratory results Abnormal [facility] Potassium [Moles/Vol] 5 mmol/L 3.5 - 5.1 mmol/L [facility] Sodium [Moles/Vol] 136 mmol/L 136 - 145 mmol/L [facility] Urea nitrogen [Mass/Vol] 23 mg/dL 9 - 23 mg/dL [facility] Anion gap [Moles/Vol] 12 mmol/L 3 - 13 mmol/L [facility] Calcium [Mass/Vol] 7.7 mg/dL Low 8.8 - 10. 0 mg/dL [facility] Chloride [Moles/Vol] 105 mmol/L 98 - 10 7 mmol/L [facility] CO2 [Moles/Vol] 21 mmol/L Low 23 - 31 mmol/L [facility] Creatinine [Mass/Vol] 4.11 mg/dL High 0.57 - 1.11 mg/dL [facility] GFR/1.73 sq M.predicted (S/P/Bld) [Vol rate/Area] 10.9 mL/min Low - PINF [facility] Glucose [Mass/Vol] 64 mg/dL Low 82 - 115 mg/dL [facility] Interpretation and review of laboratory results Abnormal [facility] Potassium [Moles/Vol] 4.8 mmol/L 3.5 - 5.1 mmol/L [facility] Sodium [Moles/Vol] 138 mmol/L 136 - 145 mmol/L [facility] Urea nitrogen [Mass/Vol] 20 mg/dL 9 - 23 mg/dL [facility] CBC W Auto Differential pane l (Bld)on 11-02-2024 Basophils (Bld) [#/Vol] 0.2 10*3/uL 0.0 - 0.2 10*3/uL [facility] Basophils/100 WBC (Bld) 0.7 % 0.0 - 2.0 % [facility] Eosinophils (Bld) [#/Vol] 0.8 10*3/uL High 0.0 - 0.5 10*3/uL [facility] Eosinophils/100 WBC (Bld) 3.6 % 0.0 - 6.0 % [facility] Erythrocyte distribution width (RBC) [Ratio] 16.3 % High 11.5 - 15.0 % [facility] Hematocrit (Bld) [Volume fraction] 22.9 % Low 35.0 - 47.0 % [facility] Hemoglobin (Bld) [Mass/Vol] 7.4 g/dL Low 11.7 - 16.0 g/dL [facility] Immature granulocytes (Bld) [#/Vol] 0.1 10*3/uL High NINF - 0.1 10*3/uL [facility] Immature granulocytes/100 WBC (Bld) 0.6 % 0.0 - 2.0 % [facility] Interpretation and review of laboratory results Abnormal [facility] Lymphocytes (Bld) [#/Vol] 3.3 10*3/uL 1.0 - 4.3 10*3/uL [facility] Lymphocytes/100 WBC (Bld) 14.8 % Low 15.0 - 45.0 % [facility] MCH (RBC) [Entitic mass] 29.8 pg 26.0 - 34.0 pg [facility] MCHC (RBC) [Mass/Vol] 32.3 % 30.5 - 36.0 % [facility] MCV (RBC) [Entitic vol] 92.3 fL 77.0 - 99.0 fL [facility] Monocytes (Bld) [#/Vol] 1.2 10*3/uL High 0.0 - 0.9 10*3/uL [facility] Monocytes/100 WBC (Bld) 5.6 % 5.0 - 13.0 % [facility] Neutrophils (Bld) [#/Vol] 16.4 10*3/uL High 1.8 - 7.5 10*3/uL [facility] Neutrophils/100 WBC (Bld) 74.7 % 38.0 - 82.0 % [facility] Nucleated RBC/100 WBC (Bld) [Ratio] 0 % [facility] Platelet mean volume (Bld) [Entitic vol] 10.8 fL 9.0 - 12.7 fL [facility] Platelets (Bld) [#/Vol] 530 10*3/uL High 140 - 440 10*3/uL [facility] RBC (Bld) [#/Vol] 2.48 10*6/uL Low 3.80 - 5.2 0 10*6/uL [facility] WBC (Bld) [#/Vol] 21.9 10*3/uL High 3.6 - 10.7 10*3/uL [facility] Hemoglobin (Bld) [Mass/Vol]O rdered By: Rimma Galloway on 11-02-2024 Hematocrit (Bld) [Volume fraction] 24.1 % Low 35.0 - 47.0 % [facility] Interpretation and review of laboratory results Abnormal [facility] Hemoglobin (Bld) [Mass/Vol]O rdered By: Mihaela Miller on 11-02-2024 Hematocrit (Bld) [Volume fraction] 20 % Low 35.0 - 47.0 % [facility] Interpretation and review of laboratory results Abnormal [facility] Laboratory - Chemistry and C hemistry - challengeon 11-02-2024 Glucose [Mass/Vol] 98 mg/dL 70 - 100 mg/dL [facility] Glucose [Mass/Vol] 103 mg/dL High 70 - 100 mg/dL [facility] Glucose [Mass/Vol] 96 mg/dL 70 - 100 mg/dL [facility] Glucose [Mass/Vol] 73 mg/dL 70 - 100 mg/dL [facility] Laboratory - Hematology and Cell countsOrdered By: Rimma Galloway on 11-02-2024 Hemoglobin (Bld) [Mass/Vol] 8 g/dL Low 11.7 - 16.0 g/dL [facility] Laboratory - Hematology and Cell countsOrdered By: Mihaela Miller on 11-02-2024 Hemoglobin (Bld) [Mass/Vol] 6.3 g/dL Critically low 11.7 - 16.0 g/dL [facility] No Panel Informationon 11-02 Interpretation and review of laboratory results Normal [facility] Interpretation and review of laboratory results Abnormal [facility] Interpretation and review of laboratory results Normal [facility] Interpretation and review of laboratory results Normal [facility] Basic metabolic 1998 panelOr dered By: Tameka Can on 11-01-2024 Anion gap [Moles/Vol] 13 mmol/L 3 - 13 mmol/L [facility] Calcium [Mass/Vol] 7.7 mg/dL Low 8.8 - 10. 0 mg/dL [facility] Chloride [Moles/Vol] 104 mmol/L 98 - 10 7 mmol/L [facility] CO2 [Moles/Vol] 22 mmol/L Low 23 - 31 mmol/L [facility] Creatinine [Mass/Vol] 2.98 mg/dL High 0.57 - 1.11 mg/dL [facility] GFR/1.73 sq M.predicted (S/P/Bld) [Vol rate/Area] 16 mL/min Low - PINF [facility] Glucose [Mass/Vol] 67 mg/dL Low 82 - 115 mg/dL [facility] Interpretation and review of laboratory results Abnormal [facility] Potassium [Moles/Vol] 4.6 mmol/L 3.5 - 5.1 mmol/L [facility] Sodium [Moles/Vol] 139 mmol/L 136 - 145 mmol/L [facility] Urea nitrogen [Mass/Vol] 14 mg/dL 9 - 23 mg/dL [facility] Blood type and Crossmatch fredi varma (Bld)on 11-01-2024 ABO group Nom (Bld) O [facility] Blood group antibody screen GEL Ql Negative [facility] D Ag Ql (RBC) Positive [facility] CBC W Auto Differential pane l (Bld)Ordered By: Mak Hobbs on 11-01-2024 Erythrocyte distribution width (RBC) [Ratio] 16.6 % High 11.5 - 15.0 % [facility] Hematocrit (Bld) [Volume fraction] 25.2 % Low 35.0 - 47.0 % [facility] Hemoglobin (Bld) [Mass/Vol] 8 g/dL Low 11.7 - 16.0 g/dL [facility] Interpretation and review of laboratory results Abnormal [facility] MCH (RBC) [Entitic mass] 29.1 pg 26.0 - 34.0 pg [facility] MCHC (RBC) [Mass/Vol] 31.7 % 30.5 - 36.0 % [facility] MCV (RBC) [Entitic vol] 91.6 fL 77.0 - 99.0 fL [facility] Platelet mean volume (Bld) [Entitic vol] 10.3 fL 9.0 - 12.7 fL [facility] Platelets (Bld) [#/Vol] 557 10*3/uL High 140 - 440 10*3/uL [facility] RBC (Bld) [#/Vol] 2.75 10*6/uL Low 3.80 - 5.2 0 10*6/uL [facility] WBC (Bld) [#/Vol] 20.4 10*3/uL High 3.6 - 10.7 10*3/uL [facility] Laboratory - Chemistry and C hemistry - challengeon 11-01-2024 Glucose [Mass/Vol] 79 mg/dL 70 - 100 mg/dL [facility] Glucose [Mass/Vol] 75 mg/dL 70 - 100 mg/dL [facility] Glucose [Mass/Vol] 79 mg/dL 70 - 100 mg/dL [facility] Glucose [Mass/Vol] 81 mg/dL 70 - 100 mg/dL [facility] Glucose [Mass/Vol] 68 mg/dL Low 70 - 100 mg/dL [facility] Glucose [Mass/Vol] 78 mg/dL 70 - 100 mg/dL [facility] Laboratory - Coagulationon 0 11-01-2024 PT Coag (Bld) [Time] 11.8 s 9.0 - 12.0 s [facility] Laboratory - Hematology and Cell countson 11-01-2024 Basophils (Bld) [#/Vol] 0.2 10*3/uL 0.0 - 0.2 10*3/uL [facility] Basophils/100 WBC (Bld) 1 % 0 - 2 % [facility] Eosinophils (Bld) [#/Vol] 0.6 10*3/uL High 0.0 - 0.5 10*3/uL [facility] Eosinophils/100 WBC (Bld) 3 % 0 - 6 % [facility] Hypochromia Ql (Bld) Slight Abnormal (none) [facility] Lymphocytes (Bld) [#/Vol] 1.6 10*3/uL 1.0 - 4.3 10*3/uL [facility] Lymphocytes/100 WBC (Bld) 8 % Low 15 - 45 % [facility] Monocytes (Bld) [#/Vol] 0.4 10*3/uL 0.0 - 0.9 10*3/uL [facility] Monocytes/100 WBC (Bld) 2 % Low 5 - 13 % [facility] Neutrophils (Bld) [#/Vol] 17.5 10*3/uL High 1.8 - 7.5 10*3/uL [facility] Ovalocytes LM Ql (Bld) Slight Abnormal (none) [facility] Poikilocytosis LM Ql (Bld) Slight Abnormal (none) [facility] RBC morphology finding Nom (Bld) abnormal [facility] Segmented neutrophils/100 WBC (Bld) 86 % High 38 - 82 % [facility] No Panel Informationon 11-01 Interpretation and review of laboratory results Normal [facility] Interpretation and review of laboratory results Normal [facility] CV EPIPHANY [facility] CV CPACS Interpretation and review of laboratory results Normal [facility] Interpretation and review of laboratory results Normal [facility] Interpretation and review of laboratory results Abnormal [facility] Basophils Manual 1 [facility] Eosinophils Manual 3 High 0 - 1 [facility] Interpretation and review of laboratory results Abnormal [facility] Lymphocytes Manual 8 [facility] Monocytes Manual 2 [facility] Neutrophils Manual 87 [employer] [employer] Interpretation and review of laboratory results Normal [facility] [employer] No Panel InformationOrdered By: Samra Reveles on 11-01-2024 P [place] 53 degrees [employer] Work Phone: UT Interval 107 ms [employer] Work Phone: QRS [place] 10 degrees [employer] Phone: QRSD Interval 71 ms [employer] Work Phone: QT Interval 338 ms [employer] Work Phone: QTC Interval 458 ms [employer] Phone: T Wave [place] 161 degrees [employer] Phone: [employer] Phone: No Panel InformationOrdered By: Jacob Gutiérrez on 11-01-2024 Left AVF Arterial Prox Anastomosis EDV 0 cm/s [employer] Phone: Left AVF Arterial Prox Anastomosis PSV 30.4 cm/s [employer] Phone: [phone] Left AVF AVG Diameter 1 0.6 cm S [employer] Phone: [phone] Left AVF AVG Diameter 2 0.56 cm S [employer] Phone: Left AVF AVG Diameter 3 0.7 cm S [employer] Phone: [phone] Left AVF AVG Inflow Vol Flow 212.7 mL/min [employer] Phone: [phone] Left AVF Dist Outflow EDV 0 cm/s [employer] Phone: [phone] Left AVF Dist Outflow PSV 0 cm/s [employer] Phone: [phone] Left AVF Inflow Artery EDV 0 cm/s [employer] Phone: Left AVF Inflow Artery PSV 64.6 cm/s [employer] Phone: Left AVF Mid Outflow EDV 0 cm/s [employer] Phone: Left AVF Mid Outflow PSV 0 cm/s [employer] Phone: Left AVF Prox Outflow EDV 0 cm/s [employer] Work Phone: Left AVF Prox Outflow PSV 0 cm[facility] Venous Dist Anastomosis EDV 11 cm/s [facility]: Left AVF Venous Dist Anastomosis PSV 21.3 cm/s [employer] Work Phone: Left AVG AVF Depth 1 0.32 cm [facility] Work Phone: Left AVG AVF Depth 2 0.4 cm [facility] [facility] Work Phone: Left AVG AVF Depth 3 0.27 cm Summ [facility] Work Phone: PT Coag (Bld) [Time]on 11-01 INR Coag (PPP) [Relative time] 1.1 {INR} 0.9 - 1.1 [facility] Interpretation and review of laboratory results Normal [facility] Vital signsOrdered By: Samra Reveles on 11-01-2024 Heart rate 110 /min bpm [facility] XR Chest Single viewon 11-01 [facility] Radiology Study observation (narrative) [facility] XR Chest Single viewOrdered By: Leonila Seth on 11-01-2024 [facility] Work Phone: Basic metabolic 1998 panelon 10-31-2024 Anion gap [Moles/Vol] 10 mmol/L 3 - 13 mmol/L [facility] Calcium [Mass/Vol] 8 mg/dL Low 8.8 - 10. 0 mg/dL [facility] Chloride [Moles/Vol] 110 mmol/L High 98 - 10 7 mmol/L [facility] CO2 [Moles/Vol] 23 mmol/L 23 - 31 mmol/L [facility] Creatinine [Mass/Vol] 4.44 mg/dL High 0.57 - 1.11 mg/dL [facility] GFR/1.73 sq M.predicted (S/P/Bld) [Vol rate/Area] 9.9 mL/min Low - PINF [facility] Glucose [Mass/Vol] 73 mg/dL Low 82 - 115 mg/dL [facility] Interpretation and review of laboratory results Abnormal [facility] Potassium [Moles/Vol] 4.4 mmol/L 3.5 - 5.1 mmol/L [facility] Sodium [Moles/Vol] 143 mmol/L 136 - 145 mmol/L [facility] Urea nitrogen [Mass/Vol] 27 mg/dL High 9 - 23 mg/dL [facility] CBC W Auto Differential pane l (Bld)on 10-31-2024 Erythrocyte distribution width (RBC) [Ratio] 16.7 % High 11.5 - 15.0 % [facility] Hematocrit (Bld) [Volume fraction] 26.6 % Low 35.0 - 47.0 % [facility] Hemoglobin (Bld) [Mass/Vol] 8.5 g/dL Low 11.7 - 16.0 g/dL [facility] MCH (RBC) [Entitic mass] 29.2 pg 26.0 - 34.0 pg [facility] MCHC (RBC) [Mass/Vol] 32 % 30.5 - 36.0 % [facility] MCV (RBC) [Entitic vol] 91.4 fL 77.0 - 99.0 fL [facility] Platelet mean volume (Bld) [Entitic vol] 10.7 fL 9.0 - 12.7 fL [facility] Platelets (Bld) [#/Vol] 531 10*3/uL High 140 - 440 10*3/uL [facility] RBC (Bld) [#/Vol] 2.91 10*6/uL Low 3.80 - 5.2 0 10*6/uL [facility] WBC (Bld) [#/Vol] 17.2 10*3/uL High 3.6 - 10.7 10*3/uL [facility] Laboratory - Chemistry and C hemistry - challengeon 10-31-2024 Glucose [Mass/Vol] 85 mg/dL 70 - 100 mg/dL [facility] Glucose [Mass/Vol] 69 mg/dL Low 70 - 100 mg/dL [facility] Glucose [Mass/Vol] 78 mg/dL 70 - 100 mg/dL [facility] Glucose [Mass/Vol] 76 mg/dL 70 - 100 mg/dL [facility] Glucose [Mass/Vol] 82 mg/dL 70 - 100 mg/dL [facility] Laboratory - Hematology and Cell countson 10-31-2024 Anisocytosis Ql (Bld) Slight Abnormal (none) [facility] Basophils (Bld) [#/Vol] 0.2 10*3/uL 0.0 - 0.2 10*3/uL [facility] Basophils/100 WBC (Bld) 1 % 0 - 2 % [facility] Eosinophils (Bld) [#/Vol] 1.2 10*3/uL High 0.0 - 0.5 10*3/uL [facility] Eosinophils/100 WBC (Bld) 7 % High 0 - 6 % [facility] Lymphocytes (Bld) [#/Vol] 1.5 10*3/uL 1.0 - 4.3 10*3/uL [facility] Lymphocytes/100 WBC (Bld) 9 % Low 15 - 45 % [facility] Monocytes (Bld) [#/Vol] 0.7 10*3/uL 0.0 - 0.9 10*3/uL [facility] Monocytes/100 WBC (Bld) 4 % Low 5 - 13 % [facility] Neutrophils (Bld) [#/Vol] 13.6 10*3/uL High 1.8 - 7.5 10*3/uL [facility] Ovalocytes LM Ql (Bld) Slight Abnormal (none) [facility] Poikilocytosis LM Ql (Bld) Slight Abnormal (none) [facility] RBC morphology finding Nom (Bld) abnormal [facility] Segmented neutrophils/100 WBC (Bld) 79 % 38 - 82 % [facility] No Panel Informationon 10-31 Interpretation and review of laboratory results Normal [facility] Interpretation and review of laboratory results Abnormal [facility] Interpretation and review of laboratory results Normal [facility] Interpretation and review of laboratory results Normal [facility] Basophils Manual 1 [facility] Eosinophils Manual 7 High 0 - 1 [facility] Interpretation and review of laboratory results Abnormal [facility] Lymphocytes Manual 9 [facility] Monocytes Manual 4 [facility] Neutrophils Manual 79 [facility] Interpretation and review of laboratory results Normal [facility] Bacteria identified Anaer cx Nom (Unsp spec)on 10-30-2024 Interpretation and review of laboratory results Normal [facility] Interpretation and review of laboratory results Normal [facility] Basic metabolic 1998 panelon 10-30-2024 Anion gap [Moles/Vol] 7 mmol/L 3 - 13 mmol/L [facility] Calcium [Mass/Vol] 7.7 mg/dL Low 8.8 - 10. 0 mg/dL [facility] Chloride [Moles/Vol] 110 mmol/L High 98 - 10 7 mmol/L [facility] CO2 [Moles/Vol] 26 mmol/L 23 - 31 mmol/L [facility] Creatinine [Mass/Vol] 3.52 mg/dL High 0.57 - 1.11 mg/dL [facility] GFR/1.73 sq M.predicted (S/P/Bld) [Vol rate/Area] 13.1 mL/min Low - PINF [facility] Glucose [Mass/Vol] 79 mg/dL Low 82 - 115 mg/dL [facility] Interpretation and review of laboratory results Abnormal [facility] Potassium [Moles/Vol] 4.2 mmol/L 3.5 - 5.1 mmol/L [facility] Sodium [Moles/Vol] 143 mmol/L 136 - 145 mmol/L [facility] Urea nitrogen [Mass/Vol] 21 mg/dL 9 - 23 mg/dL [facility] CBC W Auto Differential pane l (Bld)on 10-30-2024 Erythrocyte distribution width (RBC) [Ratio] 16.6 % High 11.5 - 15.0 % [facility] Hematocrit (Bld) [Volume fraction] 26.3 % Low 35.0 - 47.0 % [facility] Hemoglobin (Bld) [Mass/Vol] 8.3 g/dL Low 11.7 - 16.0 g/dL [facility] MCH (RBC) [Entitic mass] 29.1 pg 26.0 - 34.0 pg [facility] MCHC (RBC) [Mass/Vol] 31.6 % 30.5 - 36.0 % [facility] MCV (RBC) [Entitic vol] 92.3 fL 77.0 - 99.0 fL [facility] Platelet mean volume (Bld) [Entitic vol] 10.6 fL 9.0 - 12.7 fL [facility] Platelets (Bld) [#/Vol] 502 10*3/uL High 140 - 440 10*3/uL [facility] RBC (Bld) [#/Vol] 2.85 10*6/uL Low 3.80 - 5.2 0 10*6/uL [facility] WBC (Bld) [#/Vol] 18.2 10*3/uL High 3.6 - 10.7 10*3/uL [facility] Laboratory - Chemistry and C hemistry - challengeon 10-30-2024 Glucose [Mass/Vol] 79 mg/dL 70 - 100 mg/dL [facility] Glucose [Mass/Vol] 83 mg/dL 70 - 100 mg/dL [facility] Glucose [Mass/Vol] 92 mg/dL 70 - 100 mg/dL [facility] Glucose [Mass/Vol] 75 mg/dL 70 - 100 mg/dL [facility] Laboratory - Hematology and Cell countson 10-30-2024 Anisocytosis Ql (Bld) Slight Abnormal (none) [facility] Eosinophils (Bld) [#/Vol] 0.7 10*3/uL High 0.0 - 0.5 10*3/uL [facility] Eosinophils/100 WBC (Bld) 4 % 0 - 6 % [facility] Lymphocytes (Bld) [#/Vol] 0.7 10*3/uL Low 1.0 - 4.3 10*3/uL [facility] Lymphocytes/100 WBC (Bld) 4 % Low 15 - 45 % [facility] Monocytes (Bld) [#/Vol] 0.5 10*3/uL 0.0 - 0.9 10*3/uL [facility] Monocytes/100 WBC (Bld) 3 % Low 5 - 13 % [facility] Neutrophils (Bld) [#/Vol] 16.2 10*3/uL High 1.8 - 7.5 10*3/uL [facility] RBC morphology finding Nom (Bld) abnormal [facility] Segmented neutrophils/100 WBC (Bld) 89 % High 38 - 82 % [facility] Laboratory - Microbiology an d Antimicrobial susceptibilityon 10-30-2024 Bacteria identified Anaer cx Nom (Unsp spec) No growth at 5 days [facility] Bacteria identified Anaer cx Nom (Unsp spec) No growth at 5 days [facility] No Panel Informationon 10-30 Interpretation and review of laboratory results Normal [facility] Interpretation and review of laboratory results Normal [facility] Interpretation and review of laboratory results Normal [facility] Eosinophils Manual 4 High 0 - 1 [facility] Interpretation and review of laboratory results Abnormal [facility] Lymphocytes Manual 4 [facility] Monocytes Manual 3 [facility] Neutrophils Manual 89 [facility] Interpretation and review of laboratory results Normal [facility] Basic metabolic 1998 panelon 10-29-2024 Anion gap [Moles/Vol] 11 mmol/L 3 - 13 mmol/L [facility] Calcium [Mass/Vol] 7.9 mg/dL Low 8.8 - 10. 0 mg/dL [facility] Chloride [Moles/Vol] 108 mmol/L High 98 - 10 7 mmol/L [facility] CO2 [Moles/Vol] 24 mmol/L 23 - 31 mmol/L [facility] Creatinine [Mass/Vol] 2.73 mg/dL High 0.57 - 1.11 mg/dL [facility] GFR/1.73 sq M.predicted (S/P/Bld) [Vol rate/Area] 17.8 mL/min Low - PINF [facility] Glucose [Mass/Vol] 85 mg/dL 82 - 115 mg/dL [facility] Interpretation and review of laboratory results Abnormal [facility] Potassium [Moles/Vol] 3.9 mmol/L 3.5 - 5.1 mmol/L [facility] Sodium [Moles/Vol] 143 mmol/L 136 - 145 mmol/L [facility] Urea nitrogen [Mass/Vol] 14 mg/dL 9 - 23 mg/dL [facility] CBC W Auto Differential pane l (Bld)on 10-29-2024 Erythrocyte distribution width (RBC) [Ratio] 16.6 % High 11.5 - 15.0 % [facility] Hematocrit (Bld) [Volume fraction] 27.2 % Low 35.0 - 47.0 % [facility] Hemoglobin (Bld) [Mass/Vol] 8.8 g/dL Low 11.7 - 16.0 g/dL [facility] MCH (RBC) [Entitic mass] 29.1 pg 26.0 - 34.0 pg [facility] MCHC (RBC) [Mass/Vol] 32.4 % 30.5 - 36.0 % [facility] MCV (RBC) [Entitic vol] 90.1 fL 77.0 - 99.0 fL [facility] Platelet mean volume (Bld) [Entitic vol] 10.6 fL 9.0 - 12.7 fL [facility] Platelets (Bld) [#/Vol] 464 10*3/uL High 140 - 440 10*3/uL [facility] RBC (Bld) [#/Vol] 3.02 10*6/uL Low 3.80 - 5.2 0 10*6/uL [facility] WBC (Bld) [#/Vol] 22.8 10*3/uL High 3.6 - 10.7 10*3/uL [facility] Laboratory - Chemistry and C hemistry - challengeon 10-29-2024 Glucose [Mass/Vol] 119 mg/dL High 70 - 100 mg/dL [facility] Glucose [Mass/Vol] 76 mg/dL 70 - 100 mg/dL [facility] Glucose [Mass/Vol] 66 mg/dL Low 70 - 100 mg/dL [facility] Glucose [Mass/Vol] 80 mg/dL 70 - 100 mg/dL [facility] Glucose [Mass/Vol] 85 mg/dL 70 - 100 mg/dL [facility] Laboratory - Hematology and Cell countson 10-29-2024 Eosinophils (Bld) [#/Vol] 0.9 10*3/uL High 0.0 - 0.5 10*3/uL [facility] Eosinophils/100 WBC (Bld) 4 % 0 - 6 % [facility] Lymphocytes (Bld) [#/Vol] 1.4 10*3/uL 1.0 - 4.3 10*3/uL [facility] Lymphocytes/100 WBC (Bld) 6 % Low 15 - 45 % [facility] Monocytes (Bld) [#/Vol] 0.9 10*3/uL 0.0 - 0.9 10*3/uL [facility] Monocytes/100 WBC (Bld) 4 % Low 5 - 13 % [facility] Neutrophils (Bld) [#/Vol] 19.6 10*3/uL High 1.8 - 7.5 10*3/uL [facility] RBC morphology finding Nom (Bld) Normal [facility] Segmented neutrophils/100 WBC (Bld) 86 % High 38 - 82 % [facility] No Panel Informationon 10-29 Interpretation and review of laboratory results Abnormal [facility] Interpretation and review of laboratory results Normal [facility] Interpretation and review of laboratory results Abnormal [facility] Eosinophils Manual 4 High 0 - 1 [facility] Interpretation and review of laboratory results Abnormal [facility] Lymphocytes Manual 6 [facility] Monocytes Manual 4 [facility] Neutrophils Manual 87 [facility] Interpretation and review of laboratory results Normal [facility] Interpretation and review of laboratory results Normal [facility] Bacteria identified Cx Nom ( Bld)on 10-28-2024 Interpretation and review of laboratory results Normal [facility] Basic metabolic 1998 panelon 10-28-2024 Anion gap [Moles/Vol] 11 mmol/L 3 - 13 mmol/L [facility] Calcium [Mass/Vol] 8 mg/dL Low 8.8 - 10. 0 mg/dL [facility] Chloride [Moles/Vol] 109 mmol/L High 98 - 10 7 mmol/L [facility] CO2 [Moles/Vol] 24 mmol/L 23 - 31 mmol/L [facility] Creatinine [Mass/Vol] 3.83 mg/dL High 0.57 - 1.11 mg/dL [facility] GFR/1.73 sq M.predicted (S/P/Bld) [Vol rate/Area] 11.8 mL/min Low - PINF [facility] Glucose [Mass/Vol] 87 mg/dL 82 - 115 mg/dL [facility] Interpretation and review of laboratory results Abnormal [facility] Potassium [Moles/Vol] 3.9 mmol/L 3.5 - 5.1 mmol/L [facility] Sodium [Moles/Vol] 144 mmol/L 136 - 145 mmol/L [facility] Urea nitrogen [Mass/Vol] 24 mg/dL High 9 - 23 mg/dL [facility] CBC W Auto Differential pane l (Bld)on 10-28-2024 Erythrocyte distribution width (RBC) [Ratio] 16.4 % High 11.5 - 15.0 % [facility] Hematocrit (Bld) [Volume fraction] 28 % Low 35.0 - 47.0 % [facility] Hemoglobin (Bld) [Mass/Vol] 9.3 g/dL Low 11.7 - 16.0 g/dL [facility] MCH (RBC) [Entitic mass] 29.5 pg 26.0 - 34.0 pg [facility] MCHC (RBC) [Mass/Vol] 33.2 % 30.5 - 36.0 % [facility] MCV (RBC) [Entitic vol] 88.9 fL 77.0 - 99.0 fL [facility] Platelet mean volume (Bld) [Entitic vol] 10.7 fL 9.0 - 12.7 fL [facility] Platelets (Bld) [#/Vol] 460 10*3/uL High 140 - 440 10*3/uL [facility] RBC (Bld) [#/Vol] 3.15 10*6/uL Low 3.80 - 5.2 0 10*6/uL [facility] WBC (Bld) [#/Vol] 26.6 10*3/uL High 3.6 - 10.7 10*3/uL [facility] Laboratory - Chemistry and C hemistry - challengeon 10-28-2024 Glucose [Mass/Vol] 102 mg/dL High 70 - 100 mg/dL [facility] Glucose [Mass/Vol] 101 mg/dL High 70 - 100 mg/dL [facility] Glucose [Mass/Vol] 90 mg/dL 70 - 100 mg/dL [facility] Glucose [Mass/Vol] 98 mg/dL 70 - 100 mg/dL [facility] Glucose [Mass/Vol] 92 mg/dL 70 - 100 mg/dL [facility] Laboratory - Hematology and Cell countson 10-28-2024 Anisocytosis Ql (Bld) Slight Abnormal (none) [facility] Basophils (Bld) [#/Vol] 0.3 10*3/uL High 0.0 - 0.2 10*3/uL [facility] Basophils/100 WBC (Bld) 1 % 0 - 2 % [facility] Eosinophils (Bld) [#/Vol] 0.5 10*3/uL 0.0 - 0.5 10*3/uL [facility] Eosinophils/100 WBC (Bld) 2 % 0 - 6 % [facility] Lymphocytes (Bld) [#/Vol] 1.9 10*3/uL 1.0 - 4.3 10*3/uL [facility] Lymphocytes/100 WBC (Bld) 7 % Low 15 - 45 % [facility] Monocytes (Bld) [#/Vol] 1.1 10*3/uL High 0.0 - 0.9 10*3/uL [facility] Monocytes/100 WBC (Bld) 4 % Low 5 - 13 % [facility] Neutrophils (Bld) [#/Vol] 22.6 10*3/uL High 1.8 - 7.5 10*3/uL [facility] RBC morphology finding Nom (Bld) abnormal [facility] Segmented neutrophils/100 WBC (Bld) 85 % High 38 - 82 % [facility] Laboratory - Microbiology an d Antimicrobial susceptibilityon 10-28-2024 Bacteria identified Cx Nom (Bld) No growth at 5 days [facility] No Panel Informationon 10-28 Interpretation and review of laboratory results Abnormal [facility] Interpretation and review of laboratory results Abnormal [facility] Interpretation and review of laboratory results Normal [facility] Basophils Manual 1 [facility] Eosinophils Manual 2 High 0 - 1 [facility] Interpretation and review of laboratory results Abnormal [facility] Lymphocytes Manual 7 [facility] Monocytes Manual 4 [facility] Neutrophils Manual 88 [facility] Interpretation and review of laboratory results Normal [facility] Interpretation and review of laboratory results Normal [facility] Bacteria identified Cx Nom ( Bld)on 10-27-2024 Interpretation and review of laboratory results Normal [facility] Laboratory - Chemistry and C hemistry - challengeon 10-27-2024 Glucose [Mass/Vol] 100 mg/dL 70 - 100 mg/dL [facility] Glucose [Mass/Vol] 72 mg/dL 70 - 100 mg/dL [facility] Laboratory - Microbiology an d Antimicrobial susceptibilityon 10-27-2024 Bacteria identified Cx Nom (Bld) No growth at 5 days [facility] No Panel Informationon 10-27 Interpretation and review of laboratory results Normal [facility] CBC panel Auto (Bld)on 09-06 Erythrocyte distribution width (RBC) [Ratio] 15.5 % High 11.5 - 14.5 % [facility] Hematocrit (Bld) [Volume fraction] 24.9 % Low 36.0 - 46.0 % [facility] Hemoglobin (Bld) [Mass/Vol] 7.6 g/dL Low 12.0 - 16.0 g/dL [facility] Interpretation and review of laboratory results Abnormal [facility] MCH (RBC) [Entitic mass] 30.8 pg 26.0 - 34.0 pg [facility] MCHC (RBC) [Mass/Vol] 30.5 g/dL Low 32.0 - 36.0 g/dL [facility] MCV (RBC) [Entitic vol] 101 fL High 80 - 100 fL [facility] Nucleated RBC/100 WBC (Bld) [Ratio] 0 % [facility] Platelets (Bld) [#/Vol] 488 10*3/uL High [facility] RBC (Bld) [#/Vol] 2.47 10*6/uL Low [facility] WBC (Bld) [#/Vol] 7.9 10*3/uL [facility] Erythrocyte distribution width (RBC) [Ratio] 15.5 % High 11.5-14.5 [facility] Comment on above: Performed By: #### 2 777-1 #### KELECHI Garcia ([id number]) [facility] ([facility]) [address] [place] [address] Hematocrit (Bld) [Volume fraction] 24.9 % Low 36.0-46.0 [facility] Comment on above: Performed By: #### 2 777-1 #### KELECHI Garcia ([id number]) [facility] ([facility]) [id number] [place] [address] Hemoglobin (Bld) [Mass/Vol] 7.6 g/dL Low 12.0-16.0 [facility] Comment on above: Performed By: #### 2 777-1 #### KELECHI Garcia ([id number]) [facility] ([facility]) [id number] [place] [address]182 MCH (RBC) [Entitic mass] 30.8 pg Normal 26.0-34.0 [facility] Comment on above: Performed By: #### 2 777-1 #### KELECHI Garcia ([id number]) [facility] ([facility]) [address] [place] [address] MCHC (RBC) [Mass/Vol] 30.5 g/dL Low 32.0-36.0 [facility] Comment on above: Performed By: #### 2 777-1 #### KLEECHI Garcia ([id number]) [facility] ([facility]) [address] [place] [address] MCV (RBC) [Entitic vol] 101 fL High 80-100 [facility] Comment on above: Performed By: #### 2 777-1 #### KELECHI Garcia ([id number]) [facility] ([facility]) [id number] [place] [id number] Nucleated RBC/100 WBC (Bld) [Ratio] 0.0 /100 WBCs Normal 0.0-0.0 [facility] Comment on above: Performed By: #### 2 777-1 #### KELECHI Garcia ([id number]) [facility] ([facility]) [id number] [place] [address] Platelets (Bld) [#/Vol] 488 x10*3/uL High 150-450 [facility] Comment on above: Performed By: #### 2 777-1 #### KELECHI Garcia ([id number]) [facility] ([facility]) [address] [place] [address] RBC (Bld) [#/Vol] 2.47 x10*6/uL Low 4.00-5.20 [facility] Comment on above: Performed By: #### 2 777-1 #### KELECHI Garcia ([id number]) [facility] ([facility]) [id number] [place] [address] WBC (Bld) [#/Vol] 7.9 x10*3/uL Normal 4.4-11.3 [facility] Comment on above: Performed By: #### 2 777-1 #### KELECHI Garcia ([id number]) [facility] ([facility]) [address] [place] [address] Glucose Test strip manual (B ld) [Mass/Vol]on 09-06-2024 Glucose [Mass/Vol] 121 mg/dL High 74 - 99 mg/dL [facility] Interpretation and review of laboratory results Abnormal [facility] Glucose [Mass/Vol] 121 mg/dL High 74-99 [facility] Comment on above: Performed By: #### 2 777-1 #### KELECHI Garcia ([id number]) [facility] ([facility]) [address] [place] [id number] Renal function 2000 panelon 09-06-2024 Albumin BCP dye [Mass/Vol] 3.2 g/dL Low 3.4 - 5.0 g/dL [facility] Anion gap [Moles/Vol] 16 mmol/L 10 - 2 0 mmol/L [facility] Calcium [Mass/Vol] 8.1 mg/dL Low 8.6 - 10. 6 mg/dL [facility] Chloride [Moles/Vol] 100 mmol/L 98 - 10 7 mmol/L [facility] CO2 [Moles/Vol] 31 mmol/L 21 - 32 mmol/L [facility] Creatinine [Mass/Vol] 5.52 mg/dL High 0.50 - 1.05 mg/dL [facility] GFR/1.73 sq M.predicted among non-blacks MDRD (S/P/Bld) [Vol rate/Area] 8 mL/min/{1.73_m2} Low - PINF [facility] Comment on above: Calculations of katy mated GFR are performed using the 2020 CKD-EPI Study Refit equation without the race variable for the IDMS-Traceable creatinine methods. https://jasn.asnjournals.org/content/early/ASN.2020 972974 Glucose [Mass/Vol] 118 mg/dL High 74 - 99 mg/dL [facility] Interpretation and review of laboratory results Abnormal [facility] Phosphate [Mass/Vol] 2.2 mg/dL Low 2.5 - 4 .9 mg/dL [facility] Potassium [Moles/Vol] 3.9 mmol/L 3.5 - 5.3 mmol/L [facility] Sodium [Moles/Vol] 143 mmol/L 136 - 145 mmol/L [facility] Urea nitrogen [Mass/Vol] 35 mg/dL High 6 - 23 mg/dL [facility] Albumin BCP dye [Mass/Vol] 3.2 g/dL Low 3.4-5.0 [facility] Comment on above: Performed By: #### 2 777-1 #### KELECHI Garcia ([id number]) [facility] ([facility]) [address] [place] [address] Anion gap [Moles/Vol] 16 mmol/L Normal 10-20 [facility] Comment on above: Performed By: #### 2 777-1 #### KELECHI VELÁZQUEZ L ([id number]) [facility] ([facility]) [id number] [place] [address] Calcium [Mass/Vol] 8.1 mg/dL Low 8.6-10.6 [facility] Comment on above: Performed By: #### 2 777-1 #### KELECHI VELÁZQUEZ L ([id number]) [facility] ([facility]) [address] [place] [address] Chloride [Moles/Vol] 100 mmol/L Normal 98-107 [facility] Comment on above: Performed By: #### 2 777-1 #### KELECHI VELEZMOTZMARCY L ([id number]) [facility] ([facility]) [address] [place] [address] CO2 [Moles/Vol] 31 mmol/L Normal 21-32 [facility] Comment on above: Performed By: #### 2 777-1 #### KELECHI VELEZMOTZMARCY L ([id number]) [facility] ([facility]) [address] [place] [address] Creatinine [Mass/Vol] 5.52 mg/dL High 0.50-1.05 [facility] Comment on above: Performed By: #### 2 777-1 #### KELECHI VELÁZQUEZ L ([id number]) [facility] ([facility]) [id number] [place] [address] Glomerular filtration rate/1.73 sq M.predicted 8 mL/min/1.73m*2 Low >60 [facility] Comment on above: Result Comment: Calc ulations of estimated GFR are performed using the 2020 CKD-EPI Study Refit equation without the race variable for the IDMS-Traceable creatinine methods. https://jasn.asnjournals.org/content/early//ASN.2020 357935 Performed By: #### 2 777-1 #### KELECHI VELÁZQUEZ L ([id number]) [facility] ([facility]) [address] [place] [address] 78920 Glucose [Mass/Vol] 118 mg/dL High 74-99 [facility] Comment on above: Performed By: #### 2 777-1 #### KELECHI VELÁZQUEZ L ([id number]) [facility] ([facility]) [address] [place] [address] 85591 Phosphate [Mass/Vol] 2.2 mg/dL Low 2.5-4.9 [facility] Comment on above: Performed By: #### 2 777-1 #### KELECHI VELEZMOTZER L ([id number]) [facility] ([facility]) [address] [place] [address] 79378 Potassium [Moles/Vol] 3.9 mmol/L Normal 3.5-5.3 [facility] Comment on above: Performed By: #### 2 777-1 #### KELECHI VELEZMOTZER L ([id number]) [facility] ([facility]) [address] [place] [address] 53891 Sodium [Moles/Vol] 143 mmol/L Normal 136-145 [facility] Comment on above: Performed By: #### 2 777-1 #### KELECHI VELÁZQUEZ L ([id number]) [facility] ([facility]) [address] [place] [address] Urea nitrogen [Mass/Vol] 35 mg/dL High 6-23 [facility] Comment on above: Performed By: #### 2 777-1 #### KELECHI Garcia ([id number]) [facility] ([facility]) [address] [place] [address] CBC W Auto Differential pane l (Bld)on 09-05-2024 Basophils (Bld) [#/Vol] 0.04 10*3/uL [facility] Basophils/100 WBC (Bld) 0.6 % 0.0 - 2.0 % [facility] Eosinophils (Bld) [#/Vol] 0.33 10*3/uL [facility] Eosinophils/100 WBC (Bld) 4.7 % 0.0 - 6.0 % [facility] Erythrocyte distribution width (RBC) [Ratio] 15.1 % High 11.5 - 14.5 % [facility] Hematocrit (Bld) [Volume fraction] 22.5 % Low 36.0 - 46.0 % [facility] Hemoglobin (Bld) [Mass/Vol] 7.2 g/dL Low 12.0 - 16.0 g/dL [facility] Immature granulocytes (Bld) [#/Vol] 0.06 10*3/uL [facility] Immature granulocytes/100 WBC (Bld) 0.9 % 0.0 - 0.9 % [facility] Comment on above: Immature Granulocyte Count (IG) includes promyelocytes, myelocytes and metamyelocytes but does not include bands. Percent differential counts (%) should be interpreted in the context of the absolute cell counts (cells/UL). Interpretation and review of laboratory results Abnormal [facility] Lymphocytes (Bld) [#/Vol] 1 10*3/uL [facility] Lymphocytes/100 WBC (Bld) 14.4 % 13.0 - 44.0 % [facility] MCH (RBC) [Entitic mass] 31 pg 26.0 - 34.0 pg [facility] MCHC (RBC) [Mass/Vol] 32 g/dL 32.0 - 36.0 g/dL [facility] MCV (RBC) [Entitic vol] 97 fL 80 - 100 fL [facility] Monocytes (Bld) [#/Vol] 0.56 10*3/uL [facility] Monocytes/100 WBC (Bld) 8 % 2.0 - 10.0 % [facility] Neutrophils (Bld) [#/Vol] 4.97 10*3/uL [facility] Comment on above: Percent differential counts (%) should be interpreted in the context of the absolute cell counts (cells/uL). Neutrophils/100 WBC (Bld) 71.4 % 40.0 - 80.0 % [facility] Nucleated RBC/100 WBC (Bld) [Ratio] 0 % [facility] Platelets (Bld) [#/Vol] 404 10*3/uL [facility] RBC (Bld) [#/Vol] 2.32 10*6/uL [facility] WBC (Bld) [#/Vol] 7 10*3/uL [facility] Basophils (Bld) [#/Vol] 0.04 x10*3/uL Normal 0.00-0.10 [facility] Comment on above: Performed By: #### 2 777-1 #### KELECHI Garcia ([id number]) [facility] ([facility]) [address] [place] [address] Basophils/100 WBC (Bld) 0.6 % Normal 0.0-2.0 [facility] Comment on above: Performed By: #### 2 777-1 #### KELECHI Garcia ([id number]) [facility] ([facility]) [address] [place] [address] Eosinophils (Bld) [#/Vol] 0.33 x10*3/uL Normal 0.00-0.40 [facility] Comment on above: Performed By: #### 2 777-1 #### KELECHI Garcia ([id number]) [facility] ([facility]) [address] [place] [address] Eosinophils/100 WBC (Bld) 4.7 % Normal 0.0-6.0 [facility] Comment on above: Performed By: #### 2 777-1 #### KELECHI Garcia ([id number]) [facility] ([facility]) [address] [place] [address] 57591 Erythrocyte distribution width (RBC) [Ratio] 15.1 % High 11.5-14.5 [facility] Comment on above: Performed By: #### 2 777-1 #### KELECHI Garcia ([id number]) [facility] ([facility]) [address] [place] [address] 49270 Hematocrit (Bld) [Volume fraction] 22.5 % Low 36.0-46.0 [facility] Comment on above: Performed By: #### 2 777-1 #### KELECHI Garcia ([id number]) [facility] ([facility]) [address] [place] [address] 09464 Hemoglobin (Bld) [Mass/Vol] 7.2 g/dL Low 12.0-16.0 [facility] Comment on above: Performed By: #### 2 777-1 #### KELECHI Garcia ([id number]) [facility] ([facility]) [address] [place] [address] 78860 Immature granulocytes (Bld) [#/Vol] 0.06 x10*3/uL Normal 0.00-0.50 [facility] Comment on above: Performed By: #### 2 777-1 #### KELECHI Garcia ([id number]) [facility] ([facility]) [address] [place] [address] 92154 Immature granulocytes/100 WBC (Bld) 0.9 % Normal 0.0-0.9 [facility] Comment on above: Result Comment: Jannie ture Granulocyte Count (IG) includes promyelocytes, myelocytes and metamyelocytes but does not include bands. Percent differential counts (%) should be interpreted in the context of the absolute cell counts (cells/UL). Performed By: #### 2 777-1 #### KELECHI Garcia ([id number]) [facility] ([facility]) [address] [place] [address] [place] [address] Lymphocytes (Bld) [#/Vol] 1.00 x10*3/uL Normal 0.80-3.00 [facility] Comment on above: Performed By: #### 2 777-1 #### KELECHI Garcia ([id number]) [facility] ([facility]) [address] [place] [address] Lymphocytes/100 WBC (Bld) 14.4 % Normal 13.0-44.0 [facility] Comment on above: Performed By: #### 2 777-1 #### KELECHI Garcia ([id number]) [facility] ([facility]) [address] [place] [address] 41127 MCH (RBC) [Entitic mass] 31.0 pg Normal 26.0-34.0 [facility] Comment on above: Performed By: #### 2 777-1 #### KELECHI Garcia ([id number]) [facility] ([facility]) [address] [place] [address] 38236 MCHC (RBC) [Mass/Vol] 32.0 g/dL Normal 32.0-36.0 [facility] Comment on above: Performed By: #### 2 777-1 #### KELECHI Garcia ([id number]) [facility] ([facility]) [address] [place] [address] 95459 MCV (RBC) [Entitic vol] 97 fL Normal 80-100 [facility] Comment on above: Performed By: #### 2 777-1 #### KELECHI Garcia ([id number]) [facility] ([facility]) [address] [place] [address] 27696 Monocytes (Bld) [#/Vol] 0.56 x10*3/uL Normal 0.05-0.80 [facility] Comment on above: Performed By: #### 2 777-1 #### KELECHI Garcia ([id number]) [facility] ([facility]) [address] [place] [address] Monocytes/100 WBC (Bld) 8.0 % Normal 2.0-10.0 [facility] Comment on above: Performed By: #### 2 777-1 #### KELECHI Garcia ([id number]) [facility] ([facility]) [address] [place] [address] 40742 Neutrophils (Bld) [#/Vol] 4.97 x10*3/uL Normal 1.60-5.50 [facility] Comment on above: Result Comment: Perc ent differential counts (%) should be interpreted in the context of the absolute cell counts (cells/uL). Performed By: #### 2 777-1 #### KELECHI Garcia ([id number]) [facility] ([facility]) [address] [place] [address] 15542 Neutrophils/100 WBC (Bld) 71.4 % Normal 40.0-80.0 [facility] Comment on above: Performed By: #### 2 777-1 #### KELECHI Garcia ([id number]) [facility] ([facility]) [address] [place] [address] 03312 Nucleated RBC/100 WBC (Bld) [Ratio] 0.0 /100 WBCs Normal 0.0-0.0 [facility] Comment on above: Performed By: #### 2 777-1 #### KELECHI Garcia ([id number]) [facility] ([facility]) [address] [place] [address] 39053 Platelets (Bld) [#/Vol] 404 x10*3/uL Normal 150-450 [facility] Comment on above: Performed By: #### 2 777-1 #### KELECHI VELÁZQUEZ L ([id number]) [facility] ([facility]) [address] [place] [address] RBC (Bld) [#/Vol] 2.32 x10*6/uL Low 4.00-5.20 [facility] Comment on above: Performed By: #### 2 777-1 #### KELECHI Garcia ([id number]) [facility] ([facility]) [address] [place] [phone] WBC (Bld) [#/Vol] 7.0 x10*3/uL Normal 4.4-11.3 [facility] Comment on above: Performed By: #### 2 777-1 #### KELECHI Garcia ([id number]) [facility] ([facility]) [address] [place] [phone] Renal function 2000 panelOrd ered By: Alice Juan on 09-05-2024 Albumin BCP dye [Mass/Vol] 2.9 g/dL Low 3.4 - 5.0 g/dL [facility] Anion gap [Moles/Vol] 17 mmol/L 10 - 2 0 mmol/L [facility] Calcium [Mass/Vol] 8 mg/dL Low 8.6 - 10. 6 mg/dL [facility] Chloride [Moles/Vol] 98 mmol/L 98 - 10 7 mmol/L [facility] CO2 [Moles/Vol] 27 mmol/L 21 - 32 mmol/L [facility] Creatinine [Mass/Vol] 7.78 mg/dL High 0.50 - 1.05 mg/dL [facility] GFR/1.73 sq M.predicted among non-blacks MDRD (S/P/Bld) [Vol rate/Area] 5 mL/min/{1.73_m2} Low - PINF [facility] Comment on above: Calculations of katy mated GFR are performed using the 2020 CKD-EPI Study Refit equation without the race variable for the IDMS-Traceable creatinine methods. https://jasn.asnjournals.org/content/early//ASN.2020 234705 Glucose [Mass/Vol] 92 mg/dL 74 - 99 mg/dL [facility] Interpretation and review of laboratory results Abnormal [facility] Phosphate [Mass/Vol] 2.3 mg/dL Low 2.5 - 4 .9 mg/dL [facility] Potassium [Moles/Vol] 4.5 mmol/L 3.5 - 5.3 mmol/L [facility] Sodium [Moles/Vol] 137 mmol/L 136 - 145 mmol/L [facility] Urea nitrogen [Mass/Vol] 61 mg/dL High 6 - 23 mg/dL [facility] Renal function 2000 panelon 09-05-2024 Albumin BCP dye [Mass/Vol] 2.9 g/dL Low 3.4-5.0 [facility] Comment on above: Performed By: #### 2 777-1 #### KELECHI Garcia ([id number]) [facility] ([facility]) [address] [place] [address] Anion gap [Moles/Vol] 17 mmol/L Normal 10-20 [facility] Comment on above: Performed By: #### 2 777-1 #### KELECHI VELÁZQUEZ L ([id number]) [facility] ([facility]) [address] [place] [address] 75215 Calcium [Mass/Vol] 8.0 mg/dL Low 8.6-10.6 [facility] Comment on above: Performed By: #### 2 777-1 #### KELECHI VELÁZQUEZ L ([id number]) [facility] ([facility]) [address] [place] [address] 47805 Chloride [Moles/Vol] 98 mmol/L Normal 98-107 [facility] Comment on above: Performed By: #### 2 777-1 #### KELECHI VELÁZQUEZ L ([id number]) [facility] ([facility]) [address] [place] [address] 02646 CO2 [Moles/Vol] 27 mmol/L Normal 21-32 [facility] Comment on above: Performed By: #### 2 777-1 #### KELECHI VELÁZQUEZ L ([id number]) [facility] ([facility]) [address] [place] [address] Creatinine [Mass/Vol] 7.78 mg/dL High 0.50-1.05 [facility] Comment on above: Performed By: #### 2 777-1 #### KELECHI VELÁZQUEZ L ([id number]) [facility] ([facility]) [address] [place] [address] 75256 Glomerular filtration rate/1.73 sq M.predicted 5 mL/min/1.73m*2 Low >60 [facility] Comment on above: Result Comment: Calc ulations of estimated GFR are performed using the 2020 CKD-EPI Study Refit equation without the race variable for the IDMS-Traceable creatinine methods. https://jasn.asnjournals.org/content//ASN.2020 162484 Performed By: #### 2 777-1 #### KELECHI Garcia ([id number]) [facility] ([facility]) [address] [place] [address] Glucose [Mass/Vol] 92 mg/dL Normal 74-99 [facility] Comment on above: Performed By: #### 2 777-1 #### KELECHI VELÁZQUEZ L ([id number]) [facility] ([facility]) [address] [place] [address] Phosphate [Mass/Vol] 2.3 mg/dL Low 2.5-4.9 [facility] Comment on above: Performed By: #### 2 777-1 #### KELECHI VELÁZQUEZ L ([id number]) [facility] ([facility]) [address] [place] [address] Potassium [Moles/Vol] 4.5 mmol/L Normal 3.5-5.3 [facility] Comment on above: Performed By: #### 2 777-1 #### KELECHI VELÁZQUEZ L ([id number]) [facility] ([facility]) [address] [place] [address] Sodium [Moles/Vol] 137 mmol/L Normal 136-145 [facility] Comment on above: Performed By: #### 2 777-1 #### KELECHI VELÁZQUEZ L ([id number]) [facility] ([facility]) [address] [place] [address] 00240 Urea nitrogen [Mass/Vol] 61 mg/dL High 6-23 [facility] Comment on above: Performed By: #### 2 777-1 #### KELECHI Garcia ([id number]) [facility] ([facility]) [address] [place] [address] Basic metabolic 2000 panelon 09-04-2024 Anion gap [Moles/Vol] 16 mmol/L 10 - 2 0 mmol/L [facility] Calcium [Mass/Vol] 8.7 mg/dL 8.6 - 10. 6 mg/dL [facility] Chloride [Moles/Vol] 94 mmol/L Low 98 - 10 7 mmol/L [facility] CO2 [Moles/Vol] 30 mmol/L 21 - 32 mmol/L [facility] Creatinine [Mass/Vol] 6.79 mg/dL High 0.50 - 1.05 mg/dL [facility] GFR/1.73 sq M.predicted among non-blacks MDRD (S/P/Bld) [Vol rate/Area] 6 mL/min/{1.73_m2} Low - PINF [facility] Comment on above: Calculations of katy mated GFR are performed using the 2020 CKD-EPI Study Refit equation without the race variable for the IDMS-Traceable creatinine methods. https://jasn.asnjournals.org/content//ASN.2020 173923 Glucose [Mass/Vol] 171 mg/dL High 74 - 99 mg/dL [facility] Interpretation and review of laboratory results Abnormal [facility] Potassium [Moles/Vol] 4.1 mmol/L 3.5 - 5.3 mmol/L [facility] Sodium [Moles/Vol] 136 mmol/L 136 - 145 mmol/L [facility] Urea nitrogen [Mass/Vol] 58 mg/dL High 6 - 23 mg/dL [facility] Anion gap [Moles/Vol] 16 mmol/L Normal 10-20 [facility] Comment on above: Performed By: #### 2 777-1 #### KELECHI Garcia ([id number]) [facility] ([facility]) [address] [place] [address] Calcium [Mass/Vol] 8.7 mg/dL Normal 8.6-10.6 [facility] Comment on above: Performed By: #### 2 777-1 #### KELECHI TAOTZER L ([id number]) [facility] ([facility]) [address] [place] [address] Chloride [Moles/Vol] 94 mmol/L Low 98-107 [facility] Comment on above: Performed By: #### 2 777-1 #### KELECHI VELEZMOTZER L ([id number]) [facility] ([facility]) [address] [place] [address] CO2 [Moles/Vol] 30 mmol/L Normal 21-32 [facility] Comment on above: Performed By: #### 2 777-1 #### KELECHI VELEZMOTZER L ([id number]) [facility] ([facility]) [address] [place] [address] 82007 Creatinine [Mass/Vol] 6.79 mg/dL High 0.50-1.05 [facility] Comment on above: Performed By: #### 2 777-1 #### KELECHI WEBSTERER L ([id number]) [facility] ([facility]) [address] [place] [address] 89464 Glomerular filtration rate/1.73 sq M.predicted 6 mL/min/1.73m*2 Low >60 [facility] Comment on above: Result Comment: Calc ulations of estimated GFR are performed using the 2020 CKD-EPI Study Refit equation without the race variable for the IDMS-Traceable creatinine methods. https://jasn.asnjournals.org/content/early//ASN.2020 350297 Performed By: #### 2 777-1 #### KELECHI TAOTZER L ([id number]) [facility] ([facility]) [address] [place] [address] 23329 Glucose [Mass/Vol] 171 mg/dL High 74-99 [facility] Comment on above: Performed By: #### 2 777-1 #### KELECHI VELEZMOTZER L ([id number]) [facility] ([facility]) [address] [place] [address] Potassium [Moles/Vol] 4.1 mmol/L Normal 3.5-5.3 [facility] Comment on above: Performed By: #### 2 777-1 #### KELECHI VELÁZQUEZ L ([id number]) [facility] ([facility]) [address] [place] [address] Sodium [Moles/Vol] 136 mmol/L Normal 136-145 [facility] Comment on above: Performed By: #### 2 777-1 #### KELECHI VELÁZQUEZ L ([id number]) [facility] ([facility]) [address] [place] [address] 03858 Urea nitrogen [Mass/Vol] 58 mg/dL High 6-23 [facility] Comment on above: Performed By: #### 2 777-1 #### KELECHI VELÁZQUEZ L ([id number]) [facility] ([facility]) [address] [place] [address] 86401 CBC W Auto Differential pane l (Bld)Ordered By: Cheryl Brooks on 09-04-2024 Basophils (Bld) [#/Vol] U [facility] Basophils/100 WBC (Bld) U [facility] Eosinophils (Bld) [#/Vol] [facility] Eosinophils/100 WBC (Bld) [facility] Erythrocyte distribution width (RBC) [Ratio] [facility] Comment on above: qns Hematocrit (Bld) [Volume fraction] [facility] Comment on above: qns Hemoglobin (Bld) [Mass/Vol] [facility] Comment on above: qns Immature granulocytes/100 WBC (Bld) [facility] Comment on above: qns Lymphocytes (Bld) [#/Vol] [facility] Lymphocytes/100 WBC (Bld) [facility] MCHC (RBC) [Mass/Vol] [facility] Comment on above: qns MCV (RBC) [Entitic vol] [facility] Comment on above: qns Monocytes (Bld) [#/Vol] U [facility] Monocytes/100 WBC (Bld) [facility] Neutrophils (Bld) [#/Vol] [facility] Neutrophils/100 WBC (Bld) [facility] Platelets (Bld) [#/Vol] [facility] Comment on above: qns RBC (Bld) [#/Vol] [facility] Comment on above: qns WBC (Bld) [#/Vol] [facility] Comment on above: qns [facility] CBC W Auto Differential pane l (Bld)on 09-04-2024 Basophils (Bld) [#/Vol] Normal [facility] Comment on above: Performed By: #### 1 9123-9 #### KELECHI Garcia ([id number]) [facility] ([facility]) [address] [place] [address] 66231 Basophils/100 WBC (Bld) Normal [facility] Comment on above: Performed By: #### 1 9123-9 #### KELECHI Garcia ([id number]) [facility] ([facility]) [address] [place] [address] 10668 Eosinophils (Bld) [#/Vol] [facility] Comment on above: Performed By: #### 1 9123-9 #### KELECHI Garcia ([id number]) [facility] ([facility]) [address] [place] [address] 29215 Eosinophils/100 WBC (Bld) [facility] Comment on above: Performed By: #### 1 9123-9 #### KELECHI Garcia ([id number]) [facility] ([facility]) [address] [place] [address] 80636 Erythrocyte distribution width (RBC) [Ratio] [facility] Comment on above: Result Comment: qns Performed By: #### 1 9123-9 #### KELECHI Garcia ([id number]) [facility] ([facility]) [address] [place] [address] 57735 Hematocrit (Bld) [Volume fraction] [facility] Comment on above: Result Comment: qns Performed By: #### 1 9123-9 #### KELECHI Garcia ([id number]) [facility] ([facility]) [address] [place] [address] 07815 Hemoglobin (Bld) [Mass/Vol] Normal [facility] Comment on above: Result Comment: qns Performed By: #### 1 9123-9 #### KELECHI Garcia ([id number]) [facility] ([facility]) [address] [place] [address] 49903 Immature granulocytes/100 WBC (Bld) [facility] Comment on above: Result Comment: qns Performed By: #### 1 9123-9 #### KELECHI Garcia ([id number]) [facility] ([facility]) [address] [place] [address] 82429 Lymphocytes (Bld) [#/Vol] [facility] Comment on above: Performed By: #### 1 9123-9 #### KELECHI Garcia ([id number]) [facility] ([facility]) [address] [place] [address] 06083 Lymphocytes/100 WBC (Bld) [facility] Comment on above: Performed By: #### 1 9123-9 #### KELECHI Garcia ([id number]) [facility] ([facility]) [address] [place] [address] 27752 MCHC (RBC) [Mass/Vol] Normal [facility] Comment on above: Result Comment: qns Performed By: #### 1 9123-9 #### KELECHI Garcia ([id number]) [facility] ([facility]) [address] [place] [address] 10006 MCV (RBC) [Entitic vol] Normal [facility] Comment on above: Result Comment: qns Performed By: #### 1 9123-9 #### KELECHI Garcia ([id number]) [facility] ([facility]) [address] [place] [address] 96524 Monocytes (Bld) [#/Vol] Normal [facility] Comment on above: Performed By: #### 1 9123-9 #### KELECHI Garcia ([id number]) [facility] ([facility]) [address] [place] [address] 32208 Monocytes/100 WBC (Bld) Normal [facility] Comment on above: Performed By: #### 1 9123-9 #### KELECHI VELÁZQUEZ L ([id number]) [facility] ([facility]) [address] [place] [address] 65804 Neutrophils (Bld) [#/Vol] Normal [facility] Comment on above: Performed By: #### 1 9123-9 #### KELECHI Garcia ([id number]) [facility] ([facility]) [address] [place] [address] 17363 Neutrophils/100 WBC (Bld) [facility] Comment on above: Performed By: #### 1 9123-9 #### KELECHI Garcia ([id number]) [facility] ([facility]) [address] [place] [address] 15335 Platelets (Bld) [#/Vol] Normal [facility] Comment on above: Result Comment: qns Performed By: #### 1 9123-9 #### KELECHI Garcia ([id number]) [facility] ([facility]) [id number] [place] [address] [id number] RBC (Bld) [#/Vol] Normal [facility] Comment on above: Result Comment: qns Performed By: #### 1 9123-9 #### KELECHI Garcia ([id number]) [facility] ([facility]) [id number] [place] [address] 81513 WBC (Bld) [#/Vol] Normal [facility] Comment on above: Result Comment: qns Performed By: #### 1 9123-9 #### KELECHI Garcia ([id number]) [facility] ([facility]) [id number] [place] [address] [id number] Basic metabolic 2000 panelon 09-03-2024 Anion gap [Moles/Vol] 12 mmol/L 10 - 2 0 mmol/L [facility] Calcium [Mass/Vol] 7.8 mg/dL Low 8.6 - 10. 6 mg/dL [facility] Chloride [Moles/Vol] 98 mmol/L 98 - 10 7 mmol/L [facility] CO2 [Moles/Vol] 33 mmol/L High 21 - 32 mmol/L [facility] Creatinine [Mass/Vol] 4.58 mg/dL High 0.50 - 1.05 mg/dL [facility] GFR/1.73 sq M.predicted among non-blacks MDRD (S/P/Bld) [Vol rate/Area] 10 mL/min/{1.73_m2} Low - PINF [facility] Comment on above: Calculations of katy mated GFR are performed using the 2020 CKD-EPI Study Refit equation without the race variable for the IDMS-Traceable creatinine methods. https://jasn.asnjournals.org/content//ASN.2020 019539 Glucose [Mass/Vol] 87 mg/dL 74 - 99 mg/dL [facility] Interpretation and review of laboratory results Abnormal [facility] Potassium [Moles/Vol] 4.3 mmol/L 3.5 - 5.3 mmol/L [facility] Sodium [Moles/Vol] 139 mmol/L 136 - 145 mmol/L [facility] Urea nitrogen [Mass/Vol] 28 mg/dL High 6 - 23 mg/dL [facility] Anion gap [Moles/Vol] 12 mmol/L Normal 10-20 [facility] Comment on above: Performed By: #### 1 9123-9 #### KELECHI Garcia ([id number]) [facility] ([facility]) [address] [place] [address]40 Calcium [Mass/Vol] 7.8 mg/dL Low 8.6-10.6 [facility] Comment on above: Performed By: #### 1 9123-9 #### KELECHI Garcia ([id number]) [facility] ([facility]) [address] [place] [address] Chloride [Moles/Vol] 98 mmol/L Normal 98-107 [facility] Comment on above: Performed By: #### 1 9123-9 #### KELECHI Garcia ([id number]) [facility] ([facility]) [address] [place] [address] CO2 [Moles/Vol] 33 mmol/L High 21-32 [facility] Comment on above: Performed By: #### 1 9123-9 #### KELECHI Garcia ([id number]) [facility] ([facility]) [address] [place] [address] Creatinine [Mass/Vol] 4.58 mg/dL High 0.50-1.05 [facility] Comment on above: Performed By: #### 1 9123-9 #### KELECHI Garcia ([id number]) [facility] ([facility]) [address] [place] [address] 57927 Glomerular filtration rate/1.73 sq M.predicted 10 mL/min/1.73m*2 Low >60 [facility] Comment on above: Result Comment: Calc ulations of estimated GFR are performed using the 2020 CKD-EPI Study Refit equation without the race variable for the IDMS-Traceable creatinine methods. https://jasn.asnjournals.org/content/early//ASN.2020 169004 Performed By: #### 1 9123-9 #### KELECHI Garcia ([id number]) [facility] ([facility]) [address] [place] [address] Glucose [Mass/Vol] 87 mg/dL Normal 74-99 [facility] Comment on above: Performed By: #### 1 9123-9 #### KELECHI Garcia ([id number]) [facility] ([facility]) [address] [place] [address] Potassium [Moles/Vol] 4.3 mmol/L Normal 3.5-5.3 [facility] Comment on above: Performed By: #### 1 9123-9 #### KELECHI VELÁZQUEZ L ([id number]) [facility] ([facility]) [address] [place] [address] Sodium [Moles/Vol] 139 mmol/L Normal 136-145 [facility] Comment on above: Performed By: #### 1 9123-9 #### KELECHI VELÁZQUEZ L ([id number]) [facility] ([facility]) [address] [place] [address] Urea nitrogen [Mass/Vol] 28 mg/dL High 6-23 [facility] Comment on above: Performed By: #### 1 9123-9 #### KELECHI VELÁZQUEZ L ([id number]) [facility] ([facility]) [address] [place] [address] CBC W Auto Differential pane l (Bld)on 09-03-2024 Basophils (Bld) [#/Vol] 0.09 10*3/uL [facility] Basophils/100 WBC (Bld) 0.9 % 0.0 - 2.0 % [facility] Eosinophils (Bld) [#/Vol] 0.53 10*3/uL High [facility] Eosinophils/100 WBC (Bld) 5.5 % 0.0 - 6.0 % [facility] Erythrocyte distribution width (RBC) [Ratio] 15.2 % High 11.5 - 14.5 % [facility] Hematocrit (Bld) [Volume fraction] 26 % Low 36.0 - 46.0 % [facility] Hemoglobin (Bld) [Mass/Vol] 8 g/dL Low 12.0 - 16.0 g/dL [facility] Immature granulocytes (Bld) [#/Vol] 0.05 10*3/uL [facility] Immature granulocytes/100 WBC (Bld) 0.5 % 0.0 - 0.9 % [facility] Comment on above: Immature Granulocyte Count (IG) includes promyelocytes, myelocytes and metamyelocytes but does not include bands. Percent differential counts (%) should be interpreted in the context of the absolute cell counts (cells/UL). Interpretation and review of laboratory results Abnormal [facility] Lymphocytes (Bld) [#/Vol] 1.69 10*3/uL [facility] Lymphocytes/100 WBC (Bld) 17.5 % 13.0 - 44.0 % [facility] MCH (RBC) [Entitic mass] 30.1 pg 26.0 - 34.0 pg [facility] MCHC (RBC) [Mass/Vol] 30.8 g/dL Low 32.0 - 36.0 g/dL [facility] MCV (RBC) [Entitic vol] 98 fL 80 - 100 fL [facility] Monocytes (Bld) [#/Vol] 0.89 10*3/uL High [facility] Monocytes/100 WBC (Bld) 9.2 % 2.0 - 10.0 % [facility] Neutrophils (Bld) [#/Vol] 6.38 10*3/uL High [facility] Comment on above: Percent differential counts (%) should be interpreted in the context of the absolute cell counts (cells/uL). Neutrophils/100 WBC (Bld) 66.4 % 40.0 - 80.0 % [facility] Nucleated RBC/100 WBC (Bld) [Ratio] 0 % [facility] Platelets (Bld) [#/Vol] 429 10*3/uL [facility] RBC (Bld) [#/Vol] 2.66 10*6/uL Low [facility] WBC (Bld) [#/Vol] 9.6 10*3/uL [facility] Basophils (Bld) [#/Vol] 0.09 x10*3/uL Normal 0.00-0.10 [facility] Comment on above: Performed By: #### 1 9123-9 #### KELECHI Garcia ([id number]) [facility] ([facility]) [address] [place] [address] 90308 Basophils/100 WBC (Bld) 0.9 % Normal 0.0-2.0 [facility] Comment on above: Performed By: #### 1 9123-9 #### KELECHI Garcia ([id number]) [facility] ([facility]) [address] [place] [address] 67550 Eosinophils (Bld) [#/Vol] 0.53 x10*3/uL High 0.00-0.40 [facility] Comment on above: Performed By: #### 1 9123-9 #### KELECHI Garcia ([id number]) [facility] ([facility]) [address] [place] [address] 36250 Eosinophils/100 WBC (Bld) 5.5 % Normal 0.0-6.0 [facility] Comment on above: Performed By: #### 1 9123-9 #### KELECHI Garcia ([id number]) [facility] ([facility]) [address] [place] [address] 08693 Erythrocyte distribution width (RBC) [Ratio] 15.2 % High 11.5-14.5 [facility] Comment on above: Performed By: #### 1 9123-9 #### KELECHI Garcia ([id number]) [facility] ([facility]) [address] [place] [address] 75745 Hematocrit (Bld) [Volume fraction] 26.0 % Low 36.0-46.0 [facility] Comment on above: Performed By: #### 1 9123-9 #### KELECHI Garcia ([id number]) [facility] ([facility]) [address] [place] [address] 18132 Hemoglobin (Bld) [Mass/Vol] 8.0 g/dL Low 12.0-16.0 [facility] Comment on above: Performed By: #### 1 9123-9 #### KELECHI Garcia ([id number]) [facility] ([facility]) [address] [place] [address] 09126 Immature granulocytes (Bld) [#/Vol] 0.05 x10*3/uL Normal 0.00-0.50 [facility] Comment on above: Performed By: #### 1 9123-9 #### KELECHI Garcia ([id number]) [facility] ([facility]) [address] [place] [address] 69305 Immature granulocytes/100 WBC (Bld) 0.5 % Normal 0.0-0.9 [facility] Comment on above: Result Comment: Jannie ture Granulocyte Count (IG) includes promyelocytes, myelocytes and metamyelocytes but does not include bands. Percent differential counts (%) should be interpreted in the context of the absolute cell counts (cells/UL). Performed By: #### 1 9123-9 #### KELECHI Garcia ([id number]) [facility] ([facility]) [address] [place] [address] 07989 Lymphocytes (Bld) [#/Vol] 1.69 x10*3/uL Normal 0.80-3.00 [facility] Comment on above: Performed By: #### 1 9123-9 #### KELECHI Garcia ([id number]) [facility] ([facility]) [address] [place] [address] 83743 Lymphocytes/100 WBC (Bld) 17.5 % Normal 13.0-44.0 [facility] Comment on above: Performed By: #### 1 9123-9 #### KELECHI Garcia ([id number]) [facility] ([facility]) [address] [place] [address] MCH (RBC) [Entitic mass] 30.1 pg Normal 26.0-34.0 [facility] Comment on above: Performed By: #### 1 9123-9 #### KELECHI Garcia ([id number]) [facility] ([facility]) [address] [place] [address] MCHC (RBC) [Mass/Vol] 30.8 g/dL Low 32.0-36.0 [facility] Comment on above: Performed By: #### 1 9123-9 #### KELECHI Garcia ([id number]) [facility] ([facility]) [address] [place] [address] 43714 MCV (RBC) [Entitic vol] 98 fL Normal 80-100 [facility] Comment on above: Performed By: #### 1 9123-9 #### KELECHI Garcia ([id number]) [facility] ([facility]) [address] [place] [address] Monocytes (Bld) [#/Vol] 0.89 x10*3/uL High 0.05-0.80 [facility] Comment on above: Performed By: #### 1 9123-9 #### KELECHI Garcia ([id number]) [facility] ([facility]) [address] [place] [address] Monocytes/100 WBC (Bld) 9.2 % Normal 2.0-10.0 [facility] Comment on above: Performed By: #### 1 9123-9 #### KELECHI Garcia ([id number]) [facility] ([facility]) [address] [place] [address] 55111 Neutrophils (Bld) [#/Vol] 6.38 x10*3/uL High 1.60-5.50 [facility] Comment on above: Result Comment: Perc ent differential counts (%) should be interpreted in the context of the absolute cell counts (cells/uL). Performed By: #### 1 9123-9 #### KELECHI Garcia ([id number]) [facility] ([facility]) [address] [place] [address] Neutrophils/100 WBC (Bld) 66.4 % Normal 40.0-80.0 [facility] Comment on above: Performed By: #### 1 9123-9 #### KELECHI Garcia ([id number]) [facility] ([facility]) [address] [place] [address] 48260 Nucleated RBC/100 WBC (Bld) [Ratio] 0.0 /100 WBCs Normal 0.0-0.0 [facility] Comment on above: Performed By: #### 1 9123-9 #### KELECHI Garcia ([id number]) [facility] ([facility]) [address] [place] [address] 35120 Platelets (Bld) [#/Vol] 429 x10*3/uL Normal 150-450 [facility] Comment on above: Performed By: #### 1 9123-9 #### KELECHI VELÁZQUEZ L ([id number]) [facility] ([facility]) [address] [place] [address] RBC (Bld) [#/Vol] 2.66 x10*6/uL Low 4.00-5.20 [facility] Comment on above: Performed By: #### 1 9123-9 #### KELECHI VELEZMOTZER L ([id number]) [facility] ([facility]) [address] [place] [address] WBC (Bld) [#/Vol] 9.6 x10*3/uL Normal 4.4-11.3 [facility] Comment on above: Performed By: #### 1 9123-9 #### KELECHI WEBSTERER L ([id number]) [facility] ([facility]) [address] [place] [address] Basic metabolic 2000 panelon 09-02-2024 Anion gap [Moles/Vol] 17 mmol/L 10 - 2 0 mmol/L [facility] Calcium [Mass/Vol] 7.3 mg/dL Low 8.6 - 10. 6 mg/dL [facility] Chloride [Moles/Vol] 98 mmol/L 98 - 10 7 mmol/L [facility] CO2 [Moles/Vol] 29 mmol/L 21 - 32 mmol/L [facility] Creatinine [Mass/Vol] 6.49 mg/dL High 0.50 - 1.05 mg/dL [facility] GFR/1.73 sq M.predicted among non-blacks MDRD (S/P/Bld) [Vol rate/Area] 6 mL/min/{1.73_m2} Low - PINF [facility] Comment on above: Calculations of katy mated GFR are performed using the 2020 CKD-EPI Study Refit equation without the race variable for the IDMS-Traceable creatinine methods. https://jasn.asnjournals.org/content/early/ASN.2020 078136 Glucose [Mass/Vol] 88 mg/dL 74 - 99 mg/dL [facility] Interpretation and review of laboratory results Abnormal [facility] Potassium [Moles/Vol] 4.4 mmol/L 3.5 - 5.3 mmol/L [facility] Sodium [Moles/Vol] 140 mmol/L 136 - 145 mmol/L [facility] Urea nitrogen [Mass/Vol] 38 mg/dL High 6 - 23 mg/dL [facility] Anion gap [Moles/Vol] 17 mmol/L Normal 10-20 [facility] Comment on above: Performed By: #### 1 9123-9 #### KELECHI Garcia ([id number]) [facility] ([facility]) [address] [place] [address] 82858 Calcium [Mass/Vol] 7.3 mg/dL Low 8.6-10.6 [facility] Comment on above: Performed By: #### 1 9123-9 #### KELECHI Garcia ([id number]) [facility] ([facility]) [address] [place] [address] 43588 Chloride [Moles/Vol] 98 mmol/L Normal 98-107 [facility] Comment on above: Performed By: #### 1 9123-9 #### KELECHI Garcia ([id number]) [facility] ([facility]) [address] [place] [address] CO2 [Moles/Vol] 29 mmol/L Normal 21-32 [facility] Comment on above: Performed By: #### 1 9123-9 #### KELECHI Garcia ([id number]) [facility] ([facility]) [address] [place] [address] 81423 Creatinine [Mass/Vol] 6.49 mg/dL High 0.50-1.05 [facility] Comment on above: Performed By: #### 1 9123-9 #### KELECHI VELÁZQUEZ L ([id number]) [facility] ([facility]) [address] [place] [address] 78379 Glomerular filtration rate/1.73 sq M.predicted 6 mL/min/1.73m*2 Low >60 [facility] Comment on above: Result Comment: Calc ulations of estimated GFR are performed using the 2020 CKD-EPI Study Refit equation without the race variable for the IDMS-Traceable creatinine methods. https://jasn.asnjournals.org/content/early/ASN.2020 151539 Performed By: #### 1 9123-9 #### KELECHI Garcia ([id number]) [facility] ([facility]) [address] [place] [address] 36930 Glucose [Mass/Vol] 88 mg/dL Normal 74-99 [facility] Comment on above: Performed By: #### 1 9123-9 #### KELECHI VELÁZQUEZ L ([id number]) [facility] ([facility]) [address] [place] [address] 34859 Potassium [Moles/Vol] 4.4 mmol/L Normal 3.5-5.3 [facility] Comment on above: Performed By: #### 1 9123-9 #### KELECHI VELÁZQUEZ L ([id number]) [facility] ([facility]) [address] [place] [address] 20290 Sodium [Moles/Vol] 140 mmol/L Normal 136-145 [facility] Comment on above: Performed By: #### 1 9123-9 #### KELECHI VELÁZQUEZ L ([id number]) [facility] ([facility]) [address] [place] [address] 13041 Urea nitrogen [Mass/Vol] 38 mg/dL [facility] 6-23 [facility] Comment on above: Performed By: #### 1 9123-9 #### KELECHI VELÁZQUEZ L ([id number]) [facility] ([facility]) [address] [place] [address] 46167 CBC W Auto Differential pane l (Bld)on 09-02-2024 Basophils (Bld) [#/Vol] 0.11 10*3/uL [facility] Basophils/100 WBC (Bld) 1.2 % 0.0 - 2.0 % [facility] Eosinophils (Bld) [#/Vol] 0.4 10*3/uL [facility] Eosinophils/100 WBC (Bld) 4.3 % 0.0 - 6.0 % [facility] Erythrocyte distribution width (RBC) [Ratio] 15.5 % High 11.5 - 14.5 % [facility] Hematocrit (Bld) [Volume fraction] 28.8 % Low 36.0 - 46.0 % [facility] Hemoglobin (Bld) [Mass/Vol] 8.8 g/dL Low 12.0 - 16.0 g/dL [facility] Immature granulocytes (Bld) [#/Vol] 0.06 10*3/uL [facility] Immature granulocytes/100 WBC (Bld) 0.6 % 0.0 - 0.9 % [facility] Comment on above: Immature Granulocyte Count (IG) includes promyelocytes, myelocytes and metamyelocytes but does not include bands. Percent differential counts (%) should be interpreted in the context of the absolute cell counts (cells/UL). Interpretation and review of laboratory results Abnormal [facility] Lymphocytes (Bld) [#/Vol] 1.07 10*3/uL [facility] Lymphocytes/100 WBC (Bld) 11.5 % 13.0 - 44.0 % [facility] MCH (RBC) [Entitic mass] 31 pg 26.0 - 34.0 pg [facility] MCHC (RBC) [Mass/Vol] 30.6 g/dL Low 32.0 - 36.0 g/dL [facility] MCV (RBC) [Entitic vol] 101 fL High 80 - 100 fL [facility] Monocytes (Bld) [#/Vol] 0.79 10*3/uL [facility] Monocytes/100 WBC (Bld) 8.5 % 2.0 - 10.0 % [facility] Neutrophils (Bld) [#/Vol] 6.86 10*3/uL High [facility] Comment on above: Percent differential counts (%) should be interpreted in the context of the absolute cell counts (cells/uL). Neutrophils/100 WBC (Bld) 73.9 % 40.0 - 80.0 % [facility] Nucleated RBC/100 WBC (Bld) [Ratio] 0 % [facility] Platelets (Bld) [#/Vol] 430 10*3/uL [facility] RBC (Bld) [#/Vol] 2.84 10*6/uL Low [facility] WBC (Bld) [#/Vol] 9.3 10*3/uL [facility] Basophils (Bld) [#/Vol] 0.11 x10*3/uL High 0.00-0.10 [facility] Comment on above: Performed By: #### 1 9123-9 #### KELECHI Garcia ([id number]) [facility] ([facility]) [address] [place] [address] 19251 Basophils/100 WBC (Bld) 1.2 % Normal 0.0-2.0 [facility] Comment on above: Performed By: #### 1 9123-9 #### KELECHI Garcia ([id number]) [facility] ([facility]) [address] [place] [address] 91831 Eosinophils (Bld) [#/Vol] 0.40 x10*3/uL Normal 0.00-0.40 [facility] Comment on above: Performed By: #### 1 9123-9 #### KELECHI Garcia ([id number]) [facility] ([facility]) [address] [place] [address] 80935 Eosinophils/100 WBC (Bld) 4.3 % Normal 0.0-6.0 [facility] Comment on above: Performed By: #### 1 9123-9 #### KELECHI Garcia ([id number]) [facility] ([facility]) [address] [place] [address] 00852 Erythrocyte distribution width (RBC) [Ratio] 15.5 % High 11.5-14.5 [facility] Comment on above: Performed By: #### 1 9123-9 #### KELECHI Garcia ([id number]) [facility] ([facility]) [address] [place] [address] 21063 Hematocrit (Bld) [Volume fraction] 28.8 % Low 36.0-46.0 [facility] Comment on above: Performed By: #### 1 9123-9 #### KELECHI Garcia ([id number]) [facility] ([facility]) [address] [place] [address] 69284 Hemoglobin (Bld) [Mass/Vol] 8.8 g/dL Low 12.0-16.0 [facility] Comment on above: Performed By: #### 1 9123-9 #### KELECHI Garcia ([id number]) [facility] ([facility]) [address] [place] [address] 04857 Immature granulocytes (Bld) [#/Vol] 0.06 x10*3/uL Normal 0.00-0.50 [facility] Comment on above: Performed By: #### 1 9123-9 #### KELECHI Garcia ([id number]) [facility] ([facility]) [address] [place] [address] 47839 Immature granulocytes/100 WBC (Bld) 0.6 % Normal 0.0-0.9 [facility] Comment on above: Result Comment: Jannie ture Granulocyte Count (IG) includes promyelocytes, myelocytes and metamyelocytes but does not include bands. Percent differential counts (%) should be interpreted in the context of the absolute cell counts (cells/UL). Performed By: #### 1 9123-9 #### KELECHI Garcia ([id number]) [facility] ([facility]) [address] [place] [address] 90710 Lymphocytes (Bld) [#/Vol] 1.07 x10*3/uL Normal 0.80-3.00 [facility] Comment on above: Performed By: #### 1 9123-9 #### KELECHI VELÁZQUEZ L ([id number]) [facility] ([facility]) [address] [place] [address] 63173 Lymphocytes/100 WBC (Bld) 11.5 % Normal 13.0-44.0 [facility] Comment on above: Performed By: #### 1 9123-9 #### KELECHI Garcia ([id number]) [facility] ([facility]) [address] [place] [address] 88856 MCH (RBC) [Entitic mass] 31.0 pg Normal 26.0-34.0 [facility] Comment on above: Performed By: #### 1 9123-9 #### KELECHI Garcia ([id number]) [facility] ([facility]) [address] [place] [address] MCHC (RBC) [Mass/Vol] 30.6 g/dL Low 32.0-36.0 [facility] Comment on above: Performed By: #### 1 9123-9 #### KELECHI Garcia ([id number]) [facility] ([facility]) [address] [place] [address] MCV (RBC) [Entitic vol] 101 fL High 80-100 [facility] Comment on above: Performed By: #### 1 9123-9 #### KELECHI Garcia ([id number]) [facility] ([facility]) [address] [place] [address] Monocytes (Bld) [#/Vol] 0.79 x10*3/uL Normal 0.05-0.80 [facility] Comment on above: Performed By: #### 1 9123-9 #### KELECHI Garcia ([id number]) [facility] ([facility]) [address] [place] [address] Monocytes/100 WBC (Bld) 8.5 % Normal 2.0-10.0 [facility] Comment on above: Performed By: #### 1 9123-9 #### KELECHI Garcia ([id number]) [facility] ([facility]) [address] [place] [address] Neutrophils (Bld) [#/Vol] 6.86 x10*3/uL High 1.60-5.50 [facility] Comment on above: Result Comment: Perc ent differential counts (%) should be interpreted in the context of the absolute cell counts (cells/uL). Performed By: #### 1 9123-9 #### KELECHI Garcia ([id number]) [facility] ([facility]) [address] [place] [address] 78825 Neutrophils/100 WBC (Bld) 73.9 % Normal 40.0-80.0 [facility] Comment on above: Performed By: #### 1 9123-9 #### KELECHI Garcia ([id number]) [facility] ([facility]) [address] [place] [address] 01977 Nucleated RBC/100 WBC (Bld) [Ratio] 0.0 /100 WBCs Normal 0.0-0.0 [facility] Comment on above: Performed By: #### 1 9123-9 #### KELECHI Garcia ([id number]) [facility] ([facility]) [address] [place] [address] 39893 Platelets (Bld) [#/Vol] 430 x10*3/uL Normal 150-450 [facility] Comment on above: Performed By: #### 1 9123-9 #### KELECHI Garcia ([id number]) [facility] ([facility]) [address] [place] [address] 10082 RBC (Bld) [#/Vol] 2.84 x10*6/uL Low 4.00-5.20 [facility] Comment on above: Performed By: #### 1 9123-9 #### KELECHI Garcia ([id number]) [facility] ([facility]) [address] [place] [address] [id number] WBC (Bld) [#/Vol] 9.3 x10*3/uL Normal 4.4-11.3 [facility] Comment on above: Performed By: #### 1 9123-9 #### KELECHI Garcia ([id number]) [facility] ([facility]) [address] [place] [address] [id number] Basophils (Bld) [#/Vol] 0.13 10*3/uL [facility] Basophils/100 WBC (Bld) 1.5 % 0.0 - 2.0 % [facility] Eosinophils (Bld) [#/Vol] 0.42 10*3/uL [facility] Eosinophils/100 WBC (Bld) 4.8 % 0.0 - 6.0 % [facility] Erythrocyte distribution width (RBC) [Ratio] 15.3 % High 11.5 - 14.5 % [facility] Hematocrit (Bld) [Volume fraction] 27.3 % Low 36.0 - 46.0 % [facility] Hemoglobin (Bld) [Mass/Vol] 8.5 g/dL Low 12.0 - 16.0 g/dL [facility] Immature granulocytes (Bld) [#/Vol] 0.04 10*3/uL [facility] Immature granulocytes/100 WBC (Bld) 0.5 % 0.0 - 0.9 % [facility] Comment on above: Immature Granulocyte Count (IG) includes promyelocytes, myelocytes and metamyelocytes but does not include bands. Percent differential counts (%) should be interpreted in the context of the absolute cell counts (cells/UL). Interpretation and review of laboratory results Abnormal [facility] Lymphocytes (Bld) [#/Vol] 1.29 10*3/uL [facility] Lymphocytes/100 WBC (Bld) 14.6 % 13.0 - 44.0 % [facility] MCH (RBC) [Entitic mass] 30.6 pg 26.0 - 34.0 pg [facility] MCHC (RBC) [Mass/Vol] 31.1 g/dL Low 32.0 - 36.0 g/dL [facility] MCV (RBC) [Entitic vol] 98 fL 80 - 100 fL [facility] Monocytes (Bld) [#/Vol] 0.77 10*3/uL [facility] Monocytes/100 WBC (Bld) 8.7 % 2.0 - 10.0 % [facility] Neutrophils (Bld) [#/Vol] 6.16 10*3/uL High [facility] Comment on above: Percent differential counts (%) should be interpreted in the context of the absolute cell counts (cells/uL). Neutrophils/100 WBC (Bld) 69.9 % 40.0 - 80.0 % [facility] Nucleated RBC/100 WBC (Bld) [Ratio] 0 % [facility] Platelets (Bld) [#/Vol] 399 10*3/uL [facility] RBC (Bld) [#/Vol] 2.78 10*6/uL Low [facility] WBC (Bld) [#/Vol] 8.8 10*3/uL [facility] Basophils (Bld) [#/Vol] 0.13 x10*3/uL High 0.00-0.10 [facility] Comment on above: Performed By: #### 1 9123-9 #### KELECHI Garcia ([id number]) [facility] ([facility]) [address] [place] [address] 42689 Basophils/100 WBC (Bld) 1.5 % Normal 0.0-2.0 [facility] Comment on above: Performed By: #### 1 9123-9 #### KELECHI Garcia ([id number]) [facility] ([facility]) [address] [place] [address] 22129 Eosinophils (Bld) [#/Vol] 0.42 x10*3/uL High 0.00-0.40 [facility] Comment on above: Performed By: #### 1 9123-9 #### KELECHI Garcia ([id number]) [facility] ([facility]) [address] [place] [address] 71915 Eosinophils/100 WBC (Bld) 4.8 % Normal 0.0-6.0 [facility] Comment on above: Performed By: #### 1 9123-9 #### KELECHI Garcia ([id number]) [facility] ([facility]) [address] [place] [address] 22768 Erythrocyte distribution width (RBC) [Ratio] 15.3 % High 11.5-14.5 [facility] Comment on above: Performed By: #### 1 9123-9 #### KELECHI Garcia ([id number]) [facility] ([facility]) [address] [place] [address] 46920 Hematocrit (Bld) [Volume fraction] 27.3 % Low 36.0-46.0 [facility] Comment on above: Performed By: #### 1 9123-9 #### KELECHI Garcia ([id number]) [facility] ([facility]) [address] [place] [address] 97006 Hemoglobin (Bld) [Mass/Vol] 8.5 g/dL Low 12.0-16.0 [facility] Comment on above: Performed By: #### 1 9123-9 #### KELECHI VELEZMOTZER L ([id number]) [facility] ([facility]) [address] [place] [address] 52298 Immature granulocytes (Bld) [#/Vol] 0.04 x10*3/uL Normal 0.00-0.50 [facility] Comment on above: Performed By: #### 1 9123-9 #### KELECHI Garcia ([id number]) [facility] ([facility]) [address] [place] [address] 11187 Immature granulocytes/100 WBC (Bld) 0.5 % Normal 0.0-0.9 [facility] Comment on above: Result Comment: Jannie ture Granulocyte Count (IG) includes promyelocytes, myelocytes and metamyelocytes but does not include bands. Percent differential counts (%) should be interpreted in the context of the absolute cell counts (cells/UL). Performed By: #### 1 9123-9 #### KELECHI Garcia ([id number]) [facility] ([facility]) [address] [place] [address] 02022 Lymphocytes (Bld) [#/Vol] 1.29 x10*3/uL Normal 0.80-3.00 [facility] Comment on above: Performed By: #### 1 9123-9 #### KELECHI VELÁZQUEZ L ([id number]) [facility] ([facility]) [address] [place] [address] 25711 Lymphocytes/100 WBC (Bld) 14.6 % Normal 13.0-44.0 [facility] Comment on above: Performed By: #### 1 9123-9 #### KELECHI VELÁZQUEZ L ([id number]) [facility] ([facility]) [address] [place] [address], [place] [address] MCH (RBC) [Entitic mass] 30.6 pg Normal 26.0-34.0 [facility] Comment on above: Performed By: #### 1 9123-9 #### KELECHI Garcia ([id number]) [facility] ([facility]) [address] [place] [address] MCHC (RBC) [Mass/Vol] 31.1 g/dL Low 32.0-36.0 [facility] Comment on above: Performed By: #### 1 9123-9 #### KELECHI Garcia ([id number]) [facility] ([facility]) [address] [place] [address] MCV (RBC) [Entitic vol] 98 fL Normal 80-100 [facility] Comment on above: Performed By: #### 1 9123-9 #### KELECHI Garcia ([id number]) [facility] ([facility]) [address] [place] [address] Monocytes (Bld) [#/Vol] 0.77 x10*3/uL Normal 0.05-0.80 [facility] Comment on above: Performed By: #### 1 9123-9 #### KELECHI Garcia ([id number]) [facility] ([facility]) [address] [place] [address] Monocytes/100 WBC (Bld) 8.7 % Normal 2.0-10.0 [facility] Comment on above: Performed By: #### 1 9123-9 #### KELECHI Garcia ([id number]) [facility] ([facility]) [address] [place] [address] Neutrophils (Bld) [#/Vol] 6.16 x10*3/uL High 1.60-5.50 [facility] Comment on above: Result Comment: Perc ent differential counts (%) should be interpreted in the context of the absolute cell counts (cells/uL). Performed By: #### 1 9123-9 #### KELECHI Garcia ([id number]) [facility] ([facility]) [address] [place] [address] 97685 Neutrophils/100 WBC (Bld) 69.9 % Normal 40.0-80.0 [facility] Comment on above: Performed By: #### 1 9123-9 #### KELECHI Garcia ([id number]) [facility] ([facility]) [address] [place] [address] 63227 Nucleated RBC/100 WBC (Bld) [Ratio] 0.0 /100 WBCs Normal 0.0-0.0 [facility] Comment on above: Performed By: #### 1 9123-9 #### KELECHI Garcia ([id number]) [facility] ([facility]) [address] [place] [address] 51482 Platelets (Bld) [#/Vol] 399 x10*3/uL Normal 150-450 [facility] Comment on above: Performed By: #### 1 9123-9 #### KELECHI Garcia ([id number]) [facility] ([facility]) [address] [place] [address] 15362 RBC (Bld) [#/Vol] 2.78 x10*6/uL Low 4.00-5.20 [facility] Comment on above: Performed By: #### 1 9123-9 #### KELECHI Garcia ([id number]) [facility] ([facility]) [address] [place] [address] 92976 WBC (Bld) [#/Vol] 8.8 x10*3/uL Normal 4.4-11.3 [facility] Comment on above: Performed By: #### 1 9123-9 #### KELECHI Garcia ([id number]) [facility] ([facility]) [address] [place] [address] 02399 Basophils (Bld) [#/Vol] 0.11 10*3/uL [facility] Basophils/100 WBC (Bld) 1.1 % 0.0 - 2.0 % [facility] Eosinophils (Bld) [#/Vol] 0.49 10*3/uL [facility] Eosinophils/100 WBC (Bld) 5 % 0.0 - 6.0 % [facility] Erythrocyte distribution width (RBC) [Ratio] 15.6 % High 11.5 - 14.5 % [facility] Hematocrit (Bld) [Volume fraction] 24 % Low 36.0 - 46.0 % [facility] Hemoglobin (Bld) [Mass/Vol] 7.7 g/dL Low 12.0 - 16.0 g/dL [facility] Immature granulocytes (Bld) [#/Vol] 0.04 10*3/uL [facility] Immature granulocytes/100 WBC (Bld) 0.4 % 0.0 - 0.9 % [facility] Comment on above: Immature Granulocyte Count (IG) includes promyelocytes, myelocytes and metamyelocytes but does not include bands. Percent differential counts (%) should be interpreted in the context of the absolute cell counts (cells/UL). Interpretation and review of laboratory results Abnormal [facility] Lymphocytes (Bld) [#/Vol] 1.7 10*3/uL [facility] Lymphocytes/100 WBC (Bld) 17.5 % 13.0 - 44.0 % [facility] MCH (RBC) [Entitic mass] 30.6 pg 26.0 - 34.0 pg [facility] MCHC (RBC) [Mass/Vol] 32.1 g/dL 32.0 - 36.0 g/dL [facility] MCV (RBC) [Entitic vol] 95 fL 80 - 100 fL [facility] Monocytes (Bld) [#/Vol] 0.79 10*3/uL [facility] Monocytes/100 WBC (Bld) 8.1 % 2.0 - 10.0 % [facility] Neutrophils (Bld) [#/Vol] 6.58 10*3/uL High [facility] Comment on above: Percent differential counts (%) should be interpreted in the context of the absolute cell counts (cells/uL). Neutrophils/100 WBC (Bld) 67.9 % 40.0 - 80.0 % [facility] Nucleated RBC/100 WBC (Bld) [Ratio] 0 % [facility] Platelets (Bld) [#/Vol] 392 10*3/uL [facility] RBC (Bld) [#/Vol] 2.52 10*6/uL Low [facility] WBC (Bld) [#/Vol] 9.7 10*3/uL [facility] Basophils (Bld) [#/Vol] 0.11 x10*3/uL High 0.00-0.10 [facility] Comment on above: Performed By: #### 1 9123-9 #### KELECHI Garcia ([id number]) [facility] ([facility]) [address] [place] [address] 63193 Basophils/100 WBC (Bld) 1.1 % Normal 0.0-2.0 [facility] Comment on above: Performed By: #### 1 9123-9 #### KELECHI Garcia ([id number]) [facility] ([facility]) [address] [place] [address] 93139 Eosinophils (Bld) [#/Vol] 0.49 x10*3/uL High 0.00-0.40 [facility] Comment on above: Performed By: #### 1 9123-9 #### KELECHI Garcia ([id number]) [facility] ([facility]) [address] [place] [address] 13706 Eosinophils/100 WBC (Bld) 5.0 % Normal 0.0-6.0 [facility] Comment on above: Performed By: #### 1 9123-9 #### KELECHI Garcia ([id number]) [facility] ([facility]) [address] [place] [address] 05552 Erythrocyte distribution width (RBC) [Ratio] 15.6 % High 11.5-14.5 [facility] Comment on above: Performed By: #### 1 9123-9 #### KELECHI Garcia ([id number]) [facility] ([facility]) [address] [place] [address] 36904 Hematocrit (Bld) [Volume fraction] 24.0 % Low 36.0-46.0 [facility] Comment on above: Performed By: #### 1 9123-9 #### KELECHI Garcia ([id number]) [facility] ([facility]) [address] [place] [address] 41527 Hemoglobin (Bld) [Mass/Vol] 7.7 g/dL Low 12.0-16.0 [facility] Comment on above: Performed By: #### 1 9123-9 #### KELECHI VELEZMOTZER L ([id number]) [facility] ([facility]) [address] [place] [address] 27621 Immature granulocytes (Bld) [#/Vol] 0.04 x10*3/uL Normal 0.00-0.50 [facility] Comment on above: Performed By: #### 1 9123-9 #### KELECHI Garcia ([id number]) [facility] ([facility]) [address] [place] [address] 31443 Immature granulocytes/100 WBC (Bld) 0.4 % Normal 0.0-0.9 [facility] Comment on above: Result Comment: Jannie ture Granulocyte Count (IG) includes promyelocytes, myelocytes and metamyelocytes but does not include bands. Percent differential counts (%) should be interpreted in the context of the absolute cell counts (cells/UL). Performed By: #### 1 9123-9 #### KELECHI Garcia ([id number]) [facility] ([facility]) [address] [place] [address] 08354 Lymphocytes (Bld) [#/Vol] 1.70 x10*3/uL Normal 0.80-3.00 [facility] Comment on above: Performed By: #### 1 9123-9 #### KELECHI VELÁZQUEZ L ([id number]) [facility] ([facility]) [address] [place] [address] 44279 Lymphocytes/100 WBC (Bld) 17.5 % Normal 13.0-44.0 [facility] Comment on above: Performed By: #### 1 9123-9 #### KELECHI VELÁZQUEZ L ([id number]) [facility] ([facility]) [address] [place] [address], [place] [address] MCH (RBC) [Entitic mass] 30.6 pg Normal 26.0-34.0 [facility] Comment on above: Performed By: #### 1 9123-9 #### KELECHI Garcia ([id number]) [facility] ([facility]) [address] [place] [address] MCHC (RBC) [Mass/Vol] 32.1 g/dL Normal 32.0-36.0 [facility] Comment on above: Performed By: #### 1 9123-9 #### KELECHI Garcia ([id number]) [facility] ([facility]) [address] [place] [address] MCV (RBC) [Entitic vol] 95 fL Normal 80-100 [facility] Comment on above: Performed By: #### 1 9123-9 #### KELECHI Garcia ([id number]) [facility] ([facility]) [address] [place] [address] Monocytes (Bld) [#/Vol] 0.79 x10*3/uL Normal 0.05-0.80 [facility] Comment on above: Performed By: #### 1 9123-9 #### KELECHI Garcia ([id number]) [facility] ([facility]) [address] [place] [address] Monocytes/100 WBC (Bld) 8.1 % Normal 2.0-10.0 [facility] Comment on above: Performed By: #### 1 9123-9 #### KELECHI Garcia ([id number]) [facility] ([facility]) [address] [place] [address] Neutrophils (Bld) [#/Vol] 6.58 x10*3/uL High 1.60-5.50 [facility] Comment on above: Result Comment: Perc ent differential counts (%) should be interpreted in the context of the absolute cell counts (cells/uL). Performed By: #### 1 9123-9 #### KELECHI Garcia ([id number]) [facility] ([facility]) [address] [place] [address] 89437 Neutrophils/100 WBC (Bld) 67.9 % Normal 40.0-80.0 [facility] Comment on above: Performed By: #### 1 9123-9 #### KELECHI Garcia ([id number]) [facility] ([facility]) [address] [place] [address] 59950 Nucleated RBC/100 WBC (Bld) [Ratio] 0.0 /100 WBCs Normal 0.0-0.0 [facility] Comment on above: Performed By: #### 1 9123-9 #### KELECHI Garcia ([id number]) [facility] ([facility]) [address] [place] [address] 97100 Platelets (Bld) [#/Vol] 392 x10*3/uL Normal 150-450 [facility] Comment on above: Performed By: #### 1 9123-9 #### KELECHI Garcia ([id number]) [facility] ([facility]) [address] [place] [address] 50160 RBC (Bld) [#/Vol] 2.52 x10*6/uL Low 4.00-5.20 [facility] Comment on above: Performed By: #### 1 9123-9 #### KELECHI Garcia ([id number]) [facility] ([facility]) [address] [place] [address] 03653 WBC (Bld) [#/Vol] 9.7 x10*3/uL Normal 4.4-11.3 [facility] Comment on above: Performed By: #### 1 9123-9 #### KELECHI Garcia ([id number]) [facility] ([facility]) [address] [place] [address] 61042 Prepare RBC: 1 Unitson 09-02 Blood Expiration Date 09/08/2024 11:59:00 PM EDT [facility] Dispense Status PT [facility] PRODUCT BLOOD TYPE 5100 [facility] PRODUCT CODE [id number] [facility] Unit ABO O [facility] Unit Number [id number] [facility] Unit RH Positive [facility] UNIT VOLUME 350 [facility] XM INTEP COMP [facility] Basic metabolic 2000 panelon 09-01-2024 Anion gap [Moles/Vol] 15 mmol/L 10 - 2 0 mmol/L [facility] Calcium [Mass/Vol] 7.7 mg/dL Low 8.6 - 10. 6 mg/dL [facility] Chloride [Moles/Vol] 97 mmol/L Low 98 - 10 7 mmol/L [facility] CO2 [Moles/Vol] 33 mmol/L High 21 - 32 mmol/L [facility] Creatinine [Mass/Vol] 4.41 mg/dL High 0.50 - 1.05 mg/dL [facility] GFR/1.73 sq M.predicted among non-blacks MDRD (S/P/Bld) [Vol rate/Area] 10 mL/min/{1.73_m2} Low - PINF [facility] Comment on above: Calculations of katy mated GFR are performed using the 2020 CKD-EPI Study Refit equation without the race variable for the IDMS-Traceable creatinine methods. https://jasn.asnjournals.org/content/early//ASN.2020 159114 Glucose [Mass/Vol] 92 mg/dL 74 - 99 mg/dL [facility] Potassium [Moles/Vol] 3.7 mmol/L 3.5 - 5.3 mmol/L [facility] Sodium [Moles/Vol] 141 mmol/L 136 - 145 mmol/L [facility] Urea nitrogen [Mass/Vol] 23 mg/dL 6 - 23 mg/dL [facility] Anion gap [Moles/Vol] 15 mmol/L Normal 10-20 [facility] Comment on above: Performed By: #### 5 7021-8 #### KELECHI Garcia ([id number]) [facility] ([facility]) [address] [place] [address] Calcium [Mass/Vol] 7.7 mg/dL Low 8.6-10.6 [facility] Comment on above: Performed By: #### 5 7021-8 #### KELECHI Garcia ([id number]) [facility] ([facility]) [address] [place] [address] Chloride [Moles/Vol] 97 mmol/L Low 98-107 [facility] Comment on above: Performed By: #### 5 7021-8 #### KELECHI VELÁZQUEZ L ([id number]) [facility] ([facility]) [address] [place] [address] CO2 [Moles/Vol] 33 mmol/L High 21-32 [facility] Comment on above: Performed By: #### 5 7021-8 #### KELECHI Garcia ([id number]) [facility] ([facility]) [address] [place] [address] 12578 Creatinine [Mass/Vol] 4.41 mg/dL High 0.50-1.05 [facility] Comment on above: Performed By: #### 5 7021-8 #### KELECHI Garcia ([id number]) [facility] ([facility]) [address] [place] [address] Glomerular filtration rate/1.73 sq M.predicted 10 mL/min/1.73m*2 Low >60 [facility] Comment on above: Result Comment: Calc ulations of estimated GFR are performed using the 2020 CKD-EPI Study Refit equation without the race variable for the IDMS-Traceable creatinine methods. https://jasn.asnjournals.org/content/early//ASN.2020 108446 Performed By: #### 5 7021-8 #### KELECHI Garcia ([id number]) [facility] ([facility]) [address] [place] [address] Glucose [Mass/Vol] 92 mg/dL Normal 74-99 [facility] Comment on above: Performed By: #### 5 7021-8 #### KELECHI Garcia ([id number]) [facility] ([facility]) [address] [place] [address] Potassium [Moles/Vol] 3.7 mmol/L Normal 3.5-5.3 [facility] Comment on above: Performed By: #### 5 7021-8 #### KELECHI Garcia ([id number]) [facility] ([facility]) [address] [place] [address] 003[address] Sodium [Moles/Vol] 141 mmol/L Normal 136-145 [facility] Comment on above: Performed By: #### 5 7021-8 #### KELECHI Garcia ([id number]) [facility] ([facility]) [address] [place] [address] 46379 Urea nitrogen [Mass/Vol] 23 mg/dL Normal 6-23 [facility] Comment on above: Performed By: #### 5 7021-8 #### KELECHI Garcia ([id number]) [facility] ([facility]) [address] [place] [address] 32002 CBC W Auto Differential pane l (Bld)on 09-01-2024 Basophils (Bld) [#/Vol] 0.12 x10*3/uL High 0.00-0.10 [facility] Comment on above: Performed By: #### 5 7021-8 #### KELECHI Garcia ([id number]) [facility] ([facility]) [address] [place] [address] 07808 Basophils/100 WBC (Bld) 1.0 % Normal 0.0-2.0 [facility] Comment on above: Performed By: #### 5 7021-8 #### KELECHI Garcia ([id number]) [facility] ([facility]) [address] [place] [address] 54018 Eosinophils (Bld) [#/Vol] 0.23 x10*3/uL Normal 0.00-0.40 [facility] Comment on above: Performed By: #### 5 7021-8 #### KELECHI Garcia ([id number]) [facility] ([facility]) [address] [place] [address] 08113 Eosinophils/100 WBC (Bld) 1.9 % Normal 0.0-6.0 [facility] Comment on above: Performed By: #### 5 7021-8 #### KELECHI Garcia ([id number]) [facility] ([facility]) [address] [place] [address] 06747 Erythrocyte distribution width (RBC) [Ratio] 15.7 % High 11.5-14.5 [facility] Comment on above: Performed By: #### 5 7021-8 #### KELECIH Garcia ([id number]) [facility] ([facility]) [address] [place] [address] 42360 Hematocrit (Bld) [Volume fraction] 21.1 % Low 36.0-46.0 [facility] Comment on above: Performed By: #### 5 7021-8 #### KELECHI Garcia ([id number]) [facility] ([facility]) [address] [place] [address] 03480 Hemoglobin (Bld) [Mass/Vol] 6.8 g/dL Low 12.0-16.0 [facility] Comment on above: Performed By: #### 5 7021-8 #### KELECHI Garcia ([id number]) [facility] ([facility]) [address] [place] [address] 09945 Immature granulocytes (Bld) [#/Vol] 0.04 x10*3/uL Normal 0.00-0.50 [facility] Comment on above: Performed By: #### 5 7021-8 #### KELECHI Garcia ([id number]) [facility] ([facility]) [address] [place] [address] 26117 Immature granulocytes/100 WBC (Bld) 0.3 % Normal 0.0-0.9 [facility] Comment on above: Result Comment: Jannie ture Granulocyte Count (IG) includes promyelocytes, myelocytes and metamyelocytes but does not include bands. Percent differential counts (%) should be interpreted in the context of the absolute cell counts (cells/UL). Performed By: #### 5 7021-8 #### KELECHI Garcia ([id number]) [facility] ([facility]) [id number] [place] [address] 26107 Lymphocytes (Bld) [#/Vol] 1.00 x10*3/uL Normal 0.80-3.00 [facility] Comment on above: Performed By: #### 5 7021-8 #### KELECHI Garcia ([id number]) [facility] ([facility]) [id number] [place] [address] 17937 Lymphocytes/100 WBC (Bld) 8.1 % Normal 13.0-44.0 [facility] Comment on above: Performed By: #### 5 7021-8 #### KELECHI Garcia ([id number]) [facility] ([facility]) [address] [place] [address] 85956 MCH (RBC) [Entitic mass] 30.4 pg Normal 26.0-34.0 [facility] Comment on above: Performed By: #### 5 7021-8 #### KELECHI Garcia ([id number]) [facility] ([facility]) [address] [place] [address] 35059 MCHC (RBC) [Mass/Vol] 32.2 g/dL Normal 32.0-36.0 [facility] Comment on above: Performed By: #### 5 7021-8 #### KELECHI Garcia ([id number]) [facility] ([facility]) [address] [place] [address] 56941 MCV (RBC) [Entitic vol] 94 fL Normal 80-100 [facility] Comment on above: Performed By: #### 5 7021-8 #### KELECHI Garcia ([id number]) [facility] ([facility]) [address] [place] [address] 35974 Monocytes (Bld) [#/Vol] 1.23 x10*3/uL High 0.05-0.80 [facility] Comment on above: Performed By: #### 5 7021-8 #### KELECHI Garcia ([id number]) [facility] ([facility]) [address] [place] [address] Monocytes/100 WBC (Bld) 10.0 % Normal 2.0-10.0 [facility] Comment on above: Performed By: #### 5 7021-8 #### KELECHI Garcia ([id number]) [facility] ([facility]) [address] [place] [address] Neutrophils (Bld) [#/Vol] 9.70 x10*3/uL High 1.60-5.50 [facility] Comment on above: Result Comment: Perc ent differential counts (%) should be interpreted in the context of the absolute cell counts (cells/uL). Performed By: #### 5 7021-8 #### KELECHI Garcia ([id number]) [facility] ([facility]) [address] [place] [address] Neutrophils/100 WBC (Bld) 78.7 % Normal 40.0-80.0 [facility] Comment on above: Performed By: #### 5 7021-8 #### KELECHI Garcia ([id number]) [facility] ([facility]) [address] [place] [address] Nucleated RBC/100 WBC (Bld) [Ratio] 0.0 /100 WBCs Normal 0.0-0.0 [facility] Comment on above: Performed By: #### 5 7021-8 #### KELECHI Garcia ([id number]) [facility] ([facility]) [address] [place] [address] Platelets (Bld) [#/Vol] 366 x10*3/uL Normal 150-450 [facility] Comment on above: Performed By: #### 5 7021-8 #### KELECHI Garcia ([id number]) [facility] ([facility]) [address] [place] [address] RBC (Bld) [#/Vol] 2.24 x10*6/uL Low 4.00-5.20 [facility] Comment on above: Performed By: #### 5 7021-8 #### KELECHI Garcia ([id number]) [facility] ([facility]) [address] [place] [address] WBC (Bld) [#/Vol] 12.3 x10*3/uL High 4.4-11.3 [facility] Comment on above: Performed By: #### 5 7021-8 #### KELECHI Garcia ([id number]) [facility] ([facility]) [address] [place] [address] Basophils (Bld) [#/Vol] 0.09 10*3/uL [facility] Basophils/100 WBC (Bld) 0.8 % 0.0 - 2.0 % [facility] Eosinophils (Bld) [#/Vol] 0.38 10*3/uL [facility] Eosinophils/100 WBC (Bld) 3.4 % 0.0 - 6.0 % [facility] Erythrocyte distribution width (RBC) [Ratio] 16 % High 11.5 - 14.5 % [facility] Hematocrit (Bld) [Volume fraction] 23.5 % Low 36.0 - 46.0 % [facility] Hemoglobin (Bld) [Mass/Vol] 7.9 g/dL Low 12.0 - 16.0 g/dL [facility] Immature granulocytes (Bld) [#/Vol] 0.04 10*3/uL [facility] Immature granulocytes/100 WBC (Bld) 0.4 % 0.0 - 0.9 % [facility] Comment on above: Immature Granulocyte Count (IG) includes promyelocytes, myelocytes and metamyelocytes but does not include bands. Percent differential counts (%) should be interpreted in the context of the absolute cell counts (cells/UL). Interpretation and review of laboratory results Abnormal [facility] Lymphocytes (Bld) [#/Vol] 1.57 10*3/uL [facility] Lymphocytes/100 WBC (Bld) 14.1 % 13.0 - 44.0 % [facility] MCH (RBC) [Entitic mass] 31.9 pg 26.0 - 34.0 pg [facility] MCHC (RBC) [Mass/Vol] 33.6 g/dL 32.0 - 36.0 g/dL [facility] MCV (RBC) [Entitic vol] 95 fL 80 - 100 fL [facility] Monocytes (Bld) [#/Vol] 1.17 10*3/uL High [facility] Monocytes/100 WBC (Bld) 10.5 % 2.0 - 10.0 % [facility] Neutrophils (Bld) [#/Vol] 7.86 10*3/uL High [facility] Comment on above: Percent differential counts (%) should be interpreted in the context of the absolute cell counts (cells/uL). Neutrophils/100 WBC (Bld) 70.8 % 40.0 - 80.0 % [facility] Nucleated RBC/100 WBC (Bld) [Ratio] 0 % [facility] Platelets (Bld) [#/Vol] 369 10*3/uL [facility] RBC (Bld) [#/Vol] 2.48 10*6/uL Low [facility] [place]BC [facility]Bld[facility] [#/Vol] 11.1 10*3/uL [facility] Basophils (Bld) [#/Vol] 0.09 x10*3/uL Normal 0.00-0.10 [facility] Comment on above: Performed By: #### 1 9123-9 #### KELECHI Garcia ([id number]) [facility] ([facility]) [address] [place] [address] Basophils/100 WBC (Bld) 0.8 % Normal 0.0-2.0 [facility] Comment on above: Performed By: #### 1 9123-9 #### KELECHI VELEZMOTZER L ([id number]) [facility] ([facility]) [address] [place] [address] Eosinophils (Bld) [#/Vol] 0.38 x10*3/uL Normal 0.00-0.40 [facility] Comment on above: Performed By: #### 1 9123-9 #### KELECHI VELÁZQUEZ L ([id number]) [facility] ([facility]) [address] [place] [address] Eosinophils/100 WBC (Bld) 3.4 % Normal 0.0-6.0 [facility] Comment on above: Performed By: #### 1 9123-9 #### KELECHI Garcia ([id number]) [facility] ([facility]) [address] [place] [address] Erythrocyte distribution width (RBC) [Ratio] 16.0 % High 11.5-14.5 [facility] Comment on above: Performed By: #### 1 9123-9 #### KELECHI Garcia ([id number]) [facility] ([facility]) [address] [place] [address] Hematocrit (Bld) [Volume fraction] 23.5 % Low 36.0-46.0 [facility] Comment on above: Performed By: #### 1 9123-9 #### KELECHI Garcia ([id number]) [facility] ([facility]) [address] [place] [address] Hemoglobin (Bld) [Mass/Vol] 7.9 g/dL Low 12.0-16.0 [facility] Comment on above: Performed By: #### 1 9123-9 #### KELECHI Garcia ([id number]) [facility] ([facility]) [address] [place] [address] Immature granulocytes (Bld) [#/Vol] 0.04 x10*3/uL Normal 0.00-0.50 [facility] Comment on above: Performed By: #### 1 9123-9 #### KELECHI Garcia ([id number]) [facility] ([facility]) [address] [place] [address] Immature granulocytes/100 WBC (Bld) 0.4 % Normal 0.0-0.9 [facility] Comment on above: Result Comment: Jannie ture Granulocyte Count (IG) includes promyelocytes, myelocytes and metamyelocytes but does not include bands. Percent differential counts (%) should be interpreted in the context of the absolute cell counts (cells/UL). Performed By: #### 1 9123-9 #### KELECHI Garcia ([id number]) [facility] ([facility]) [address] [place] [address] Lymphocytes (Bld) [#/Vol] 1.57 x10*3/uL Normal 0.80-3.00 [facility] Comment on above: Performed By: #### 1 9123-9 #### KELECHI Garcia ([id number]) [facility] ([facility]) [address] [place] [address] Lymphocytes/100 WBC (Bld) 14.1 % Normal 13.0-44.0 [facility] Comment on above: Performed By: #### 1 9123-9 #### KELECHI Garcia ([id number]) [facility] ([facility]) [address] [place] [address] MCH (RBC) [Entitic mass] 31.9 pg Normal 26.0-34.0 [facility] Comment on above: Performed By: #### 1 9123-9 #### KELECHI Garcia ([id number]) [facility] ([facility]) [address] [place] [address] MCHC (RBC) [Mass/Vol] 33.6 g/dL Normal 32.0-36.0 [facility] Comment on above: Performed By: #### 1 9123-9 #### KELECHI Garcia ([id number]) [facility] ([facility]) [address] [place] [address] MCV (RBC) [Entitic vol] 95 fL Normal 80-100 [facility] Comment on above: Performed By: #### 1 9123-9 #### KELECHI Garcia ([id number]) [facility] ([facility]) [address] [place] [address] Monocytes (Bld) [#/Vol] 1.17 x10*3/uL High 0.05-0.80 [facility] Comment on above: Performed By: #### 1 9123-9 #### KELECHI Garcia ([id number]) [facility] ([facility]) [address] [place] [address] Monocytes/100 WBC (Bld) 10.5 % Normal 2.0-10.0 [facility] Comment on above: Performed By: #### 1 9123-9 #### KELECHI Garcia ([id number]) [facility] ([facility]) [address] [place] [address] Neutrophils (Bld) [#/Vol] 7.86 x10*3/uL High 1.60-5.50 [facility] Comment on above: Result Comment: Perc ent differential counts (%) should be interpreted in the context of the absolute cell counts (cells/uL). Performed By: #### 1 9123-9 #### KELECHI Garcia ([id number]) [facility] ([facility]) [address] [place] [address] Neutrophils/100 WBC (Bld) 70.8 % Normal 40.0-80.0 [facility] Comment on above: Performed By: #### 1 9123-9 #### KELECHI Garcia ([id number]) [facility] ([facility]) [address] [place] [address] Nucleated RBC/100 WBC (Bld) [Ratio] 0.0 /100 WBCs Normal 0.0-0.0 [facility] Comment on above: Performed By: #### 1 9123-9 #### KELECHI Garcia ([id number]) [facility] ([facility]) [address] [place] [address] Platelets (Bld) [#/Vol] 369 x10*3/uL Normal 150-450 [facility] Comment on above: Performed By: #### 1 9123-9 #### KELECHI Garcia ([id number]) [facility] ([facility]) [address] [place] [address] RBC (Bld) [#/Vol] 2.48 x10*6/uL Low 4.00-5.20 [facility] Comment on above: Performed By: #### 1 9123-9 #### KELECHI Garcia ([id number]) [facility] ([facility]) [address] [place] [address] WBC (Bld) [#/Vol] 11.1 x10*3/uL Normal 4.4-11.3 [facility] Comment on above: Performed By: #### 1 9123-9 #### KELECHI Garcia ([id number]) [facility] ([facility]) [address] [place] [address] Basophils (Bld) [#/Vol] 0.15 10*3/uL High [facility] Basophils/100 WBC (Bld) 1.2 % 0.0 - 2.0 % [facility] Eosinophils (Bld) [#/Vol] 0.28 10*3/uL [facility] Eosinophils/100 WBC (Bld) 2.3 % 0.0 - 6.0 % [facility] Erythrocyte distribution width (RBC) [Ratio] 15.9 % High 11.5 - 14.5 % [facility] Hematocrit (Bld) [Volume fraction] 26.2 % Low 36.0 - 46.0 % [facility] Hemoglobin (Bld) [Mass/Vol] 8.4 g/dL Low 12.0 - 16.0 g/dL [facility] Immature granulocytes (Bld) [#/Vol] 0.04 10*3/uL [facility] Immature granulocytes/100 WBC (Bld) 0.3 % 0.0 - 0.9 % [facility] Comment on above: Immature Granulocyte Count (IG) includes promyelocytes, myelocytes and metamyelocytes but does not include bands. Percent differential counts (%) should be interpreted in the context of the absolute cell counts (cells/UL). Interpretation and review of laboratory results Abnormal [facility] Lymphocytes (Bld) [#/Vol] 1.44 10*3/uL [facility] Lymphocytes/100 WBC (Bld) 11.6 % 13.0 - 44.0 % [facility] MCH (RBC) [Entitic mass] 30.5 pg 26.0 - 34.0 pg [facility] MCHC (RBC) [Mass/Vol] 32.1 g/dL 32.0 - 36.0 g/dL [facility] MCV (RBC) [Entitic vol] 95 fL 80 - 100 fL [facility] Monocytes (Bld) [#/Vol] 0.97 10*3/uL High [facility] Monocytes/100 WBC (Bld) 7.8 % 2.0 - 10.0 % [facility] Neutrophils (Bld) [#/Vol] 9.54 10*3/uL High [facility] Comment on above: Percent differential counts (%) should be interpreted in the context of the absolute cell counts (cells/uL). Neutrophils/100 WBC (Bld) 76.8 % 40.0 - 80.0 % [facility] Nucleated RBC/100 WBC (Bld) [Ratio] 0 % [facility] Platelets (Bld) [#/Vol] 393 10*3/uL [facility] RBC (Bld) [#/Vol] 2.75 10*6/uL Low [facility] WBC (Bld) [#/Vol] 12.4 10*3/uL High [facility] Basophils (Bld) [#/Vol] 0.15 x10*3/uL High 0.00-0.10 [facility] Comment on above: Performed By: #### 1 9123-9 #### KELECHI Garcia ([id number]) [facility] ([facility]) [address] [place] [address] Basophils/100 WBC (Bld) 1.2 % Normal 0.0-2.0 [facility] Comment on above: Performed By: #### 1 9123-9 #### KELECHI VELÁZQUEZ L ([id number]) [facility] ([facility]) [address] [place] [address] Eosinophils (Bld) [#/Vol] 0.28 x10*3/uL Normal 0.00-0.40 [facility] Comment on above: Performed By: #### 1 9123-9 #### KELECHI VELÁZQUEZ L ([id number]) [facility] ([facility]) [address] [place] [address] Eosinophils/100 WBC (Bld) 2.3 % Normal 0.0-6.0 [facility] Comment on above: Performed By: #### 1 9123-9 #### KELECHI Garcia ([id number]) [facility] ([facility]) [address] [place] [address] Erythrocyte distribution width (RBC) [Ratio] 15.9 % High 11.5-14.5 [facility] Comment on above: Performed By: #### 1 9123-9 #### KELECHI Garcia ([id number]) [facility] ([facility]) [address] [place] [address] Hematocrit (Bld) [Volume fraction] 26.2 % Low 36.0-46.0 [facility] Comment on above: Performed By: #### 1 9123-9 #### KELECHI Garcia ([id number]) [facility] ([facility]) [address] [place] [address]19 Hemoglobin (Bld) [Mass/Vol] 8.4 g/dL Low 12.0-16.0 [facility] Comment on above: Performed By: #### 1 9123-9 #### KELECHI Garcia ([id number]) [facility] ([facility]) [address] [place] [address] Immature granulocytes (Bld) [#/Vol] 0.04 x10*3/uL Normal 0.00-0.50 [facility] Comment on above: Performed By: #### 1 9123-9 #### KELECHI Garcia ([id number]) [facility] ([facility]) [address] [place] [address]32 Immature granulocytes/100 WBC (Bld) 0.3 % Normal 0.0-0.9 [facility] Comment on above: Result Comment: Jannie ture Granulocyte Count (IG) includes promyelocytes, myelocytes and metamyelocytes but does not include bands. Percent differential counts (%) should be interpreted in the context of the absolute cell counts (cells/UL). Performed By: #### 1 9123-9 #### KELECHI Garcia ([id number]) [facility] ([facility]) [address] [place] [address] Lymphocytes (Bld) [#/Vol] 1.44 x10*3/uL Normal 0.80-3.00 [facility] Comment on above: Performed By: #### 1 9123-9 #### KELECHI Garcia ([id number]) [facility] ([facility]) [address] [place] [address] Lymphocytes/100 WBC (Bld) 11.6 % Normal 13.0-44.0 [facility] Comment on above: Performed By: #### 1 9123-9 #### KELECHI Garcia ([id number]) [facility] ([facility]) [address] [place] [address]32 MCH (RBC) [Entitic mass] 30.5 pg Normal 26.0-34.0 [facility] Comment on above: Performed By: #### 1 9123-9 #### KELECHI Garcia ([id number]) [facility] ([facility]) [address] [place] [address] 97984 MCHC (RBC) [Mass/Vol] 32.1 g/dL Normal 32.0-36.0 [facility] Comment on above: Performed By: #### 1 9123-9 #### KELECHI Garcia ([id number]) [facility] ([facility]) [address] [place] [address] 49320 MCV (RBC) [Entitic vol] 95 fL Normal 80-100 [facility] Comment on above: Performed By: #### 1 9123-9 #### KELECHI Garcia ([id number]) [facility] ([facility]) [address] [place] [address] 17285 Monocytes (Bld) [#/Vol] 0.97 x10*3/uL High 0.05-0.80 [facility] Comment on above: Performed By: #### 1 9123-9 #### KELECHI Garcia ([id number]) [facility] ([facility]) [address] [place] [address] Monocytes/100 WBC (Bld) 7.8 % Normal 2.0-10.0 [facility] Comment on above: Performed By: #### 1 9123-9 #### KELECHI Garcia ([id number]) [facility] ([facility]) [address] [place] [address] Neutrophils (Bld) [#/Vol] 9.54 x10*3/uL High 1.60-5.50 [facility] Comment on above: Result Comment: Perc ent differential counts (%) should be interpreted in the context of the absolute cell counts (cells/uL). Performed By: #### 1 9123-9 #### KELECHI Garcia ([id number]) [facility] ([facility]) [address] [place] [address] Neutrophils/100 WBC (Bld) 76.8 % Normal 40.0-80.0 [facility] Comment on above: Performed By: #### 1 9123-9 #### KELECHI Garcia ([id number]) [facility] ([facility]) [address] [place] [address] 57263 Nucleated RBC/100 WBC (Bld) [Ratio] 0.0 /100 WBCs Normal 0.0-0.0 [facility] Comment on above: Performed By: #### 1 9123-9 #### KELECHI Garcia ([id number]) [facility] ([facility]) [address] [place] [address] 37568 Platelets (Bld) [#/Vol] 393 x10*3/uL Normal 150-450 [facility] Comment on above: Performed By: #### 1 9123-9 #### KELECHI Garcia ([id number]) [facility] ([facility]) [address] [place] [address] 11733 RBC (Bld) [#/Vol] 2.75 x10*6/uL Low 4.00-5.20 [facility] Comment on above: Performed By: #### 1 9123-9 #### KELECHI Garcia ([id number]) [facility] ([facility]) [address] [place] [address] WBC (Bld) [#/Vol] 12.4 x10*3/uL High 4.4-11.3 [facility] Comment on above: Performed By: #### 1 9123-9 #### KELECHI Garcia ([id number]) [facility] ([facility]) [address] [place] [address] Basophils (Bld) [#/Vol] 0.15 10*3/uL High [facility] Basophils/100 WBC (Bld) 1.3 % 0.0 - 2.0 % [facility] Eosinophils (Bld) [#/Vol] 0.32 10*3/uL [facility] Eosinophils/100 WBC (Bld) 2.7 % 0.0 - 6.0 % [facility] Erythrocyte distribution width (RBC) [Ratio] 15.5 % High 11.5 - 14.5 % [facility] Hematocrit (Bld) [Volume fraction] 22.9 % Low 36.0 - 46.0 % [facility] Hemoglobin (Bld) [Mass/Vol] 7.5 g/dL Low 12.0 - 16.0 g/dL [facility] Immature granulocytes (Bld) [#/Vol] 0.07 10*3/uL [facility] Immature granulocytes/100 WBC (Bld) 0.6 % 0.0 - 0.9 % [facility] Comment on above: Immature Granulocyte Count (IG) includes promyelocytes, myelocytes and metamyelocytes but does not include bands. Percent differential counts (%) should be interpreted in the context of the absolute cell counts (cells/UL). Interpretation and review of laboratory results Abnormal [facility] Lymphocytes (Bld) [#/Vol] 1.67 10*3/uL [facility] Lymphocytes/100 WBC (Bld) 14 % 13.0 - 44.0 % [facility] MCH (RBC) [Entitic mass] 30.9 pg 26.0 - 34.0 pg [facility] MCHC (RBC) [Mass/Vol] 32.8 g/dL 32.0 - 36.0 g/dL [facility] MCV (RBC) [Entitic vol] 94 fL 80 - 100 fL [facility] Monocytes (Bld) [#/Vol] 1.39 10*3/uL High [facility] Monocytes/100 WBC (Bld) 11.7 % 2.0 - 10.0 % [facility] Neutrophils (Bld) [#/Vol] 8.33 10*3/uL High [facility] Comment on above: Percent differential counts (%) should be interpreted in the context of the absolute cell counts (cells/uL). Neutrophils/100 WBC (Bld) 69.7 % 40.0 - 80.0 % [facility] Nucleated RBC/100 WBC (Bld) [Ratio] 0 % [facility] Platelets (Bld) [#/Vol] 360 10*3/uL [facility] RBC (Bld) [#/Vol] 2.43 10*6/uL Low [facility] WBC (Bld) [#/Vol] 11.9 10*3/uL High [facility] Basophils (Bld) [#/Vol] 0.15 x10*3/uL High 0.00-0.10 [facility] Comment on above: Performed By: #### 5 7021-8 #### KELECHI Garcia ([id number]) [facility] ([facility]) [address] [place] [address] Basophils/100 WBC (Bld) 1.3 % Normal 0.0-2.0 [facility] Comment on above: Performed By: #### 5 7021-8 #### KELECHI VELÁZQUEZ L ([id number]) [facility] ([facility]) [address] [place] [address] Eosinophils (Bld) [#/Vol] 0.32 x10*3/uL Normal 0.00-0.40 [facility] Comment on above: Performed By: #### 5 7021-8 #### KELECHI Garcia ([id number]) [facility] ([facility]) [address] [place] [address] 34329 Eosinophils/100 WBC (Bld) 2.7 % Normal 0.0-6.0 [facility] Comment on above: Performed By: #### 5 7021-8 #### KELECHI Garcia ([id number]) [facility] ([facility]) [address] [place] [address] 17242 Erythrocyte distribution width (RBC) [Ratio] 15.5 % High 11.5-14.5 [facility] Comment on above: Performed By: #### 5 7021-8 #### KELECHI Garcia ([id number]) [facility] ([facility]) [address] [place] [address] 70194 Hematocrit (Bld) [Volume fraction] 22.9 % Low 36.0-46.0 [facility] Comment on above: Performed By: #### 5 7021-8 #### KELECHI Garcia ([id number]) [facility] ([facility]) [address] [place] [address] 99661 Hemoglobin (Bld) [Mass/Vol] 7.5 g/dL Low 12.0-16.0 [facility] Comment on above: Performed By: #### 5 7021-8 #### KELECHI Garcia ([id number]) [facility] ([facility]) [address] [place] [address] 53569 Immature granulocytes (Bld) [#/Vol] 0.07 x10*3/uL Normal 0.00-0.50 [facility] Comment on above: Performed By: #### 5 7021-8 #### KELECHI Garcia ([id number]) [facility] ([facility]) [address] [place] [address] 52182 Immature granulocytes/100 WBC (Bld) 0.6 % Normal 0.0-0.9 [facility] Comment on above: Result Comment: Jannie ture Granulocyte Count (IG) includes promyelocytes, myelocytes and metamyelocytes but does not include bands. Percent differential counts (%) should be interpreted in the context of the absolute cell counts (cells/UL). Performed By: #### 5 7021-8 #### KELECHI Garcia ([id number]) [facility] ([facility]) [address] [place] [address] 72270 Lymphocytes (Bld) [#/Vol] 1.67 x10*3/uL Normal 0.80-3.00 [facility] Comment on above: Performed By: #### 5 7021-8 #### KELECHI Garcia ([id number]) [facility] ([facility]) [address] [place] [address] 06775 Lymphocytes/100 WBC (Bld) 14.0 % Normal 13.0-44.0 [facility] Comment on above: Performed By: #### 5 7021-8 #### KELECHI Garcia ([id number]) [facility] ([facility]) [address] [place] [address] 90718 MCH (RBC) [Entitic mass] 30.9 pg Normal 26.0-34.0 [facility] Comment on above: Performed By: #### 5 7021-8 #### KELECHI Garcia ([id number]) [facility] ([facility]) [address] [place] [address] 24208 MCHC (RBC) [Mass/Vol] 32.8 g/dL Normal 32.0-36.0 [facility] Comment on above: Performed By: #### 5 7021-8 #### KELECHI Garcia ([id number]) [facility] ([facility]) [address] [place] [address] 61283 MCV (RBC) [Entitic vol] 94 fL Normal 80-100 [facility] Comment on above: Performed By: #### 5 7021-8 #### KELECHI Garcia ([id number]) [facility] ([facility]) [address] [place] [address] [id number] Monocytes (Bld) [#/Vol] 1.39 x10*3/uL High 0.05-0.80 [facility] Comment on above: Performed By: #### 5 7021-8 #### KELECHI Garcia ([id number]) [facility] ([facility]) [address] [place] [address] Monocytes/100 WBC (Bld) 11.7 % Normal 2.0-10.0 [facility] Comment on above: Performed By: #### 5 7021-8 #### KELECHI Garcia ([id number]) [facility] ([facility]) [id number] [place] [address] [id number] Neutrophils (Bld) [#/Vol] 8.33 x10*3/uL High 1.60-5.50 [facility] Comment on above: Result Comment: Perc ent differential counts (%) should be interpreted in the context of the absolute cell counts (cells/uL). Performed By: #### 5 7021-8 #### KELECHI Garcia ([id number]) [facility] ([facility]) [id number] [place] [address] [id number] Neutrophils/100 WBC (Bld) 69.7 % Normal 40.0-80.0 [facility] Comment on above: Performed By: #### 5 7021-8 #### KELECHI Garcia ([id number]) [facility] ([facility]) [id number] [place] [address] [id number] Nucleated RBC/100 WBC (Bld) [Ratio] 0.0 /100 WBCs Normal 0.0-0.0 [facility] [facility] Comment on above: Performed By: #### 5 7021-8 #### KELECHI Garcia ([id number]) [facility] ([facility]) [address] [place] [address] 59955 Platelets (Bld) [#/Vol] 360 x10*3/uL Normal 150-450 [facility] Comment on above: Performed By: #### 5 7021-8 #### KELECHI Garcia ([id number]) [facility] ([facility]) [address] [place] [address] 62531 RBC (Bld) [#/Vol] 2.43 x10*6/uL Low 4.00-5.20 [facility] Comment on above: Performed By: #### 5 7021-8 #### KELECHI Garcia ([id number]) [facility] ([facility]) [address] [place] [address] WBC (Bld) [#/Vol] 11.9 x10*3/uL High 4.4-11.3 [facility] Comment on above: Performed By: #### 5 7021-8 #### KELECHI Garcia ([id number]) [facility] ([facility]) [address] [place] [address] Basophils (Bld) [#/Vol] 0.12 10*3/uL High [facility] Basophils/100 WBC (Bld) 1 % 0.0 - 2.0 % [facility] Eosinophils (Bld) [#/Vol] 0.23 10*3/uL [facility] Eosinophils/100 WBC (Bld) 1.9 % 0.0 - 6.0 % [facility] Erythrocyte distribution width (RBC) [Ratio] 15.7 % High 11.5 - 14.5 % [facility] Hematocrit (Bld) [Volume fraction] 21.1 % Low 36.0 - 46.0 % [facility] Hemoglobin (Bld) [Mass/Vol] 6.8 g/dL Low 12.0 - 16.0 g/dL [facility] Immature granulocytes (Bld) [#/Vol] 0.04 10*3/uL [facility] Immature granulocytes/100 WBC (Bld) 0.3 % 0.0 - 0.9 % [facility] Comment on above: Immature Granulocyte Count (IG) includes promyelocytes, myelocytes and metamyelocytes but does not include bands. Percent differential counts (%) should be interpreted in the context of the absolute cell counts (cells/UL). Interpretation and review of laboratory results Abnormal [facility] Lymphocytes (Bld) [#/Vol] 1 10*3/uL [facility] Lymphocytes/100 WBC (Bld) 8.1 % 13.0 - 44.0 % [facility] MCH (RBC) [Entitic mass] 30.4 pg 26.0 - 34.0 pg [facility] MCHC (RBC) [Mass/Vol] 32.2 g/dL 32.0 - 36.0 g/dL [facility] MCV (RBC) [Entitic vol] 94 fL 80 - 100 fL [facility] Monocytes (Bld) [#/Vol] 1.23 10*3/uL [facility] Monocytes/100 WBC (Bld) 10 % 2.0 - 10.0 % [facility] Neutrophils (Bld) [#/Vol] 9.7 10*3/uL [facility] Comment on above: Percent differential counts (%) should be interpreted in the context of the absolute cell counts (cells/uL). Neutrophils/100 WBC (Bld) 78.7 % 40.0 - 80.0 % [facility] Nucleated RBC/100 WBC (Bld) [Ratio] 0 % [facility] Platelets (Bld) [#/Vol] 366 10*3/uL [facility] RBC (Bld) [#/Vol] 2.24 10*6/uL Low [facility] WBC (Bld) [#/Vol] 12.3 10*3/uL High [facility] No Panel Informationon 09-01 Interpretation and review of laboratory results Abnormal [facility] Vancomycinon 09-01-2024 Vancomycin [Mass/Vol] 25.3 ug/mL High 5.0 - 20.0 ug/mL [facility] Vancomycin [Mass/Vol] 25.3 ug/mL High 5.0-20.0 [facility] Comment on above: Order Comment: Vanco mycin levels can be monitored according to area under the curve (AUC) or concentration (ug/mL). The preferred monitoring strategy is determined by the patient's renal function and indication for therapy.For AUC monitoring, a random vancomycin level should be interpreted in the context of AUC rather than the concentration at a single point in time.For concentration monitoring, a trough concentration drawn immediately prior to the next dose is preferred.Therapeutic ranges using concentration-guided results:Peak (all ages): 30.0-40.0 ug/mLTrough (all ages): 10.0-20.0 ug/mL Performed By: #### 1 9123-9 #### KELECHI Garcia ([id number]) [facility] ([facility]) [address] [place] [address] Vancomycin [Mass/Vol]on 08-05 Vancomycin levels can be monitored according to area under the curve (AUC) or concentration (ug/mL). The preferred monitoring strategy is determined by the patient's renal function and indication for therapy. For AUC monitoring, a random vancomycin level should be interpreted in the context of AUC rather than the concentration at a single point in time. For concentration monitoring, a trough concentration drawn immediately prior to the next dose is preferred. Therapeutic ranges using concentration-guided results: Peak (all ages): 30.0-40.0 ug/mL Trough (all ages): 10.0-20.0 ug/mL [facility] Basic metabolic 2000 panelon 08-31-2024 Anion gap [Moles/Vol] 19 mmol/L 10 - 2 0 mmol/L [facility] Calcium [Mass/Vol] 7.3 mg/dL Low 8.6 - 10. 6 mg/dL [facility] Chloride [Moles/Vol] 89 mmol/L Low 98 - 10 7 mmol/L [facility] CO2 [Moles/Vol] 28 mmol/L 21 - 32 mmol/L [facility] Creatinine [Mass/Vol] 7.69 mg/dL High 0.50 - 1.05 mg/dL [facility] GFR/1.73 sq M.predicted among non-blacks MDRD (S/P/Bld) [Vol rate/Area] 5 mL/min/{1.73_m2} Low - PINF [facility] Comment on above: Calculations of katy mated GFR are performed using the 2020 CKD-EPI Study Refit equation without the race variable for the IDMS-Traceable creatinine methods. https://jasn.asnjournals.org/content//ASN.2020 450754 Glucose [Mass/Vol] 74 mg/dL 74 - 99 mg/dL [facility] Potassium [Moles/Vol] 4.2 mmol/L 3.5 - 5.3 mmol/L [facility] Sodium [Moles/Vol] 132 mmol/L Low 136 - 145 mmol/L [facility] Urea nitrogen [Mass/Vol] 45 mg/dL High 6 - 23 mg/dL [facility] Anion gap [Moles/Vol] 19 mmol/L Normal 10-20 [facility] Comment on above: Performed By: #### 2 4321-2 #### KELECHI VELÁZQUEZ L ([id number]) [facility] ([facility]) [address] [place] [address] Calcium [Mass/Vol] 7.3 mg/dL Low 8.6-10.6 [facility] Comment on above: Performed By: #### 2 4321-2 #### KELECHI VELÁZQUEZ L ([id number]) [facility] ([facility]) [address] [place] [address] 91354 Chloride [Moles/Vol] 89 mmol/L Low 98-107 [facility] Comment on above: Performed By: #### 2 4321-2 #### KELECHI VELÁZQUEZ L ([id number]) [facility] ([facility]) [address] [place] [address] CO2 [Moles/Vol] 28 mmol/L Normal 21-32 [facility] Comment on above: Performed By: #### 2 4321-2 #### KELECHI VELÁZQUEZ L ([id number]) [facility] ([facility]) [address] [place] [address] 84601 Creatinine [Mass/Vol] 7.69 mg/dL High 0.50-1.05 [facility] Comment on above: Performed By: #### 2 4321-2 #### KELECHI TAOTZMARCY L ([id number]) [facility] ([facility]) [address] [place] [address] 40487 Glomerular filtration rate/1.73 sq M.predicted 5 mL/min/1.73m*2 Low >60 [facility] Comment on above: Result Comment: Calc ulations of estimated GFR are performed using the 2020 CKD-EPI Study Refit equation without the race variable for the IDMS-Traceable creatinine methods. https://jasn.asnjournals.org/content/early/ASN 283725 Performed By: #### 2 4321-2 #### KELECHI Garcia ([id number]) [facility] ([facility]) [address] [place] [address]1241 Glucose [Mass/Vol] 74 mg/dL Normal 74-99 [facility] Comment on above: Performed By: #### 2 4321-2 #### KELECHI Garcia ([id number]) [facility] ([facility]) [address] [place] [address] 90032 Potassium [Moles/Vol] 4.2 mmol/L Normal 3.5-5.3 [facility] Comment on above: Performed By: #### 2 4321-2 #### KELECHI Garcia ([id number]) [facility] ([facility]) [address] [place] [address] 84437 Sodium [Moles/Vol] 132 mmol/L Low 136-145 [facility] Comment on above: Performed By: #### 2 4321-2 #### KELECHI Garcia ([id number]) [facility] ([facility]) [address] [place] [address] 92826 Urea nitrogen [Mass/Vol] 45 mg/dL High 6-23 [facility] Comment on above: Performed By: #### 2 4321-2 #### KELECHI Garcia ([id number]) [facility] ([facility]) [address] [place] [address] 30521 Blood type and Indirect anti body screen panel (Bld)on 08-31-2024 ABO group Nom (Bld) O [facility] Blood group antibody screen Ql Negative [facility] D Ag Ql (Bld) Positive [facility] ABO group Nom (Bld) O Normal [facility] Comment on above: Performed By: #### 5 7021-8 #### KELECHI Garcia ([id number]) [facility] ([facility]) [address] [place] [address] 26500 Blood group antibody screen Ql Negative [facility] Comment on above: Performed By: #### 5 7021-8 #### KELECHI Garcia ([id number]) [facility] ([facility]) [address] [place] [address] 92757 D Ag Ql (Bld) Positive [facility] Comment on above: Performed By: #### 5 7021-8 #### KELECHI Garcia ([id number]) [facility] ([facility]) [id number] [place], [place] [phone] ABO group Nom (Bld) O [facility] Blood group antibody screen Ql Negative [facility] D Ag Ql (Bld) Positive [facility] Comment on above: 2nd ABO test require d. Order and Collect VERAB [facility] ABO group Nom (Bld) O Normal [facility] Comment on above: Performed By: #### 3 4532-2 #### KELECHI Garcia ([id number]) [facility] ([facility]) [address] [place], [place] [address] Blood group antibody screen Ql Negative [facility] Comment on above: Performed By: #### 3 4532-2 #### KELECHI Garcia ([id number]) [facility] ([facility]) [address] [place], [place] [address] D Ag Ql (Bld) Positive [facility] Comment on above: Result Comment: 2nd ABO test required. Order and Collect VERAB Performed By: #### 3 4532-2 #### KELECHI Garcia ([id number]) [facility] ([facility]) [address] [place] [address]349 CBC W Auto Differential pane l (Bld)on 08-31-2024 Basophils (Bld) [#/Vol] 0.13 10*3/uL [facility] Basophils/100 WBC (Bld) 1 % 0.0 - 2.0 % [facility] Eosinophils (Bld) [#/Vol] 0.34 10*3/uL [facility] Eosinophils/100 WBC (Bld) 2.6 % 0.0 - 6.0 % [facility] Erythrocyte distribution width (RBC) [Ratio] 15.7 % High 11.5 - 14.5 % [facility] Hematocrit (Bld) [Volume fraction] 19.6 % Low 36.0 - 46.0 % [facility] Hemoglobin (Bld) [Mass/Vol] 6.4 g/dL Critically low 12.0 - 16.0 g/dL [facility] Immature granulocytes (Bld) [#/Vol] 0.05 10*3/uL [facility] Immature granulocytes/100 WBC (Bld) 0.4 % 0.0 - 0.9 % [facility] Comment on above: Immature Granulocyte Count (IG) includes promyelocytes, myelocytes and metamyelocytes but does not include bands. Percent differential counts (%) should be interpreted in the context of the absolute cell counts (cells/UL). Interpretation and review of laboratory results Abnormal [facility] Lymphocytes (Bld) [#/Vol] 1.29 10*3/uL [facility] Lymphocytes/100 WBC (Bld) 9.8 % 13.0 - 44.0 % [facility] MCH (RBC) [Entitic mass] 30.3 pg 26.0 - 34.0 pg [facility] MCHC (RBC) [Mass/Vol] 32.7 g/dL 32.0 - 36.0 g/dL [facility] MCV (RBC) [Entitic vol] 93 fL 80 - 100 fL [facility] Monocytes (Bld) [#/Vol] 0.95 10*3/uL High [facility] Monocytes/100 WBC (Bld) 7.2 % 2.0 - 10.0 % [facility] Neutrophils (Bld) [#/Vol] 10.47 10*3/uL High [facility] Comment on above: Percent differential counts (%) should be interpreted in the context of the absolute cell counts (cells/uL). Neutrophils/100 WBC (Bld) 79 % 40.0 - 80.0 % [facility] Nucleated RBC/100 WBC (Bld) [Ratio] 0 % [facility] Platelets (Bld) [#/Vol] 347 10*3/uL [facility] RBC (Bld) [#/Vol] 2.11 10*6/uL Low [facility] WBC (Bld) [#/Vol] 13.2 10*3/uL High [facility] Basophils (Bld) [#/Vol] 0.13 x10*3/uL High 0.00-0.10 [facility] Comment on above: Performed By: #### 5 7021-8 #### KELECHI Garcia ([id number]) [facility] ([facility]) [address] [place] [address] 63702 Basophils/100 WBC (Bld) 1.0 % Normal 0.0-2.0 [facility] Comment on above: Performed By: #### 5 7021-8 #### KELECHI Garcia ([id number]) [facility] ([facility]) [address] [place] [address] 99191 Eosinophils (Bld) [#/Vol] 0.34 x10*3/uL Normal 0.00-0.40 [facility] Comment on above: Performed By: #### 5 7021-8 #### KELECHI Garcia ([id number]) [facility] ([facility]) [address] [place] [address] 84715 Eosinophils/100 WBC (Bld) 2.6 % Normal 0.0-6.0 [facility] Comment on above: Performed By: #### 5 7021-8 #### KELECHI Garcia ([id number]) [facility] ([facility]) [address] [place] [address] 58896 Erythrocyte distribution width (RBC) [Ratio] 15.7 % High 11.5-14.5 [facility] Comment on above: Performed By: #### 5 7021-8 #### KELECHI Garcia ([id number]) [facility] ([facility]) [address] [place] [address] 33334 Hematocrit (Bld) [Volume fraction] 19.6 % Low 36.0-46.0 [facility] Comment on above: Performed By: #### 5 7021-8 #### KELECHI TAOTZER L ([id number]) [facility] ([facility]) [address] [place] [address] 84856 Hemoglobin (Bld) [Mass/Vol] 6.4 g/dL Critically low 12.0-16.0 [facility] Comment on above: Performed By: #### 5 7021-8 #### KELECHI SCHMOTZER L ([id number]) [facility] ([facility]) [address] [place] [address] 88524 Immature granulocytes (Bld) [#/Vol] 0.05 x10*3/uL Normal 0.00-0.50 [facility] Comment on above: Performed By: #### 5 7021-8 #### KELECHI VELEZMOTZER L ([id number]) [facility] ([facility]) [address] [place] [address] 58823 Immature granulocytes/100 WBC (Bld) 0.4 % Normal 0.0-0.9 [facility] Comment on above: Result Comment: Jannie ture Granulocyte Count (IG) includes promyelocytes, myelocytes and metamyelocytes but does not include bands. Percent differential counts (%) should be interpreted in the context of the absolute cell counts (cells/UL). Performed By: #### 5 7021-8 #### KELECHI VELÁZQUEZ L ([id number]) [facility] ([facility]) [address] [place] [address] 78985 Lymphocytes (Bld) [#/Vol] 1.29 x10*3/uL Normal 0.80-3.00 [facility] Comment on above: Performed By: #### 5 7021-8 #### KELECHI VELEZMOTZER L ([id number]) [facility] ([facility]) [address] [place] [address] 91289 Lymphocytes/100 WBC (Bld) 9.8 % Normal 13.0-44.0 [facility] Comment on above: Performed By: #### 5 7021-8 #### KELECHI VELEZMOTZER L ([id number]) [facility] ([facility]) [address] [place] [address] MCH (RBC) [Entitic mass] 30.3 pg Normal 26.0-34.0 [facility] Comment on above: Performed By: #### 5 7021-8 #### KELECHI Garcia ([id number]) [facility] ([facility]) [address] [place] [address] MCHC (RBC) [Mass/Vol] 32.7 g/dL Normal 32.0-36.0 [facility] Comment on above: Performed By: #### 5 7021-8 #### KELECHI Garcia ([id number]) [facility] ([facility]) [address] [place] [address] 56377 MCV (RBC) [Entitic vol] 93 fL Normal 80-100 [facility] Comment on above: Performed By: #### 5 7021-8 #### KELECHI Garcia ([id number]) [facility] ([facility]) [address] [place] [address] 60870 Monocytes (Bld) [#/Vol] 0.95 x10*3/uL High 0.05-0.80 [facility] Comment on above: Performed By: #### 5 7021-8 #### KELECHI Garcia ([id number]) [facility] ([facility]) [address] [place] [address] 53384 Monocytes/100 WBC (Bld) 7.2 % Normal 2.0-10.0 [facility] Comment on above: Performed By: #### 5 7021-8 #### KELECHI Garcia ([id number]) [facility] ([facility]) [address] [place] [address] Neutrophils (Bld) [#/Vol] 10.47 x10*3/uL High 1.60-5.50 [facility] Comment on above: Result Comment: Perc ent differential counts (%) should be interpreted in the context of the absolute cell counts (cells/uL). Performed By: #### 5 7021-8 #### KELECHI Garcia ([id number]) [facility] ([facility]) [address] [place] [address] 96866 Neutrophils/100 WBC (Bld) 79.0 % Normal 40.0-80.0 [facility] Comment on above: Performed By: #### 5 7021-8 #### KELECHI Garcia ([id number]) [facility] ([facility]) [address] [place] [address] 21097 Nucleated RBC/100 WBC (Bld) [Ratio] 0.0 /100 WBCs Normal 0.0-0.0 [facility] Comment on above: Performed By: #### 5 7021-8 #### KELECHI Garcia ([id number]) [facility] ([facility]) [address] [place] [address] 07516 Platelets (Bld) [#/Vol] 347 x10*3/uL Normal 150-450 [facility] Comment on above: Performed By: #### 5 7021-8 #### KELECHI Garcia ([id number]) [facility] ([facility]) [address] [place] [address] 69464 RBC (Bld) [#/Vol] 2.11 x10*6/uL Low 4.00-5.20 [facility] Comment on above: Performed By: #### 5 7021-8 #### KELECHI Garcia ([id number]) [facility] ([facility]) [address] [place] [address] 37104 WBC (Bld) [#/Vol] 13.2 x10*3/uL High 4.4-11.3 [facility] Comment on above: Performed By: #### 5 7021-8 #### KELECHI Garcia ([id number]) [facility] ([facility]) [address] [place] [address] 80490 Basophils (Bld) [#/Vol] 0.19 10*3/uL High [facility] Basophils/100 WBC (Bld) 1.2 % 0.0 - 2.0 % [facility] Eosinophils (Bld) [#/Vol] 0.37 10*3/uL [facility] Eosinophils/100 WBC (Bld) 2.4 % 0.0 - 6.0 % [facility] Erythrocyte distribution width (RBC) [Ratio] 16.1 % High 11.5 - 14.5 % [facility] Hematocrit (Bld) [Volume fraction] 22.7 % Low 36.0 - 46.0 % [facility] Hemoglobin (Bld) [Mass/Vol] 7.2 g/dL Low 12.0 - 16.0 g/dL [facility] Immature granulocytes (Bld) [#/Vol] 0.12 10*3/uL [facility] Immature granulocytes/100 WBC (Bld) 0.8 % 0.0 - 0.9 % [facility] Comment on above: Immature Granulocyte Count (IG) includes promyelocytes, myelocytes and metamyelocytes but does not include bands. Percent differential counts (%) should be interpreted in the context of the absolute cell counts (cells/UL). Interpretation and review of laboratory results Abnormal [facility] Lymphocytes (Bld) [#/Vol] 1.36 10*3/uL [facility] Lymphocytes/100 WBC (Bld) 8.8 % 13.0 - 44.0 % [facility] MCH (RBC) [Entitic mass] 30 pg 26.0 - 34.0 pg [facility] MCHC (RBC) [Mass/Vol] 31.7 g/dL Low 32.0 - 36.0 g/dL [facility] MCV (RBC) [Entitic vol] 95 fL 80 - 100 fL [facility] Monocytes (Bld) [#/Vol] 1.1 10*3/uL High [facility] Monocytes/100 WBC (Bld) 7.1 % 2.0 - 10.0 % [facility] Neutrophils (Bld) [#/Vol] 12.33 10*3/uL High [facility] Comment on above: Percent differential counts (%) should be interpreted in the context of the absolute cell counts (cells/uL). Neutrophils/100 WBC (Bld) 79.7 % 40.0 - 80.0 % [facility] Nucleated RBC/100 WBC (Bld) [Ratio] 0 % [facility] Platelets (Bld) [#/Vol] 353 10*3/uL [facility] RBC (Bld) [#/Vol] 2.4 10*6/uL Low [facility] WBC (Bld) [#/Vol] 15.5 10*3/uL High [facility] Basophils (Bld) [#/Vol] 0.19 x10*3/uL High 0.00-0.10 [facility] Comment on above: Performed By: #### 5 7021-8 #### KELECHI Garcia ([id number]) [facility] ([facility]) [address] [place] [address] 57849 Basophils/100 WBC (Bld) 1.2 % Normal 0.0-2.0 [facility] Comment on above: Performed By: #### 5 7021-8 #### KELECHI VELÁZQUEZ L ([id number]) [facility] ([facility]) [address] [place] [address] 40359 Eosinophils (Bld) [#/Vol] 0.37 x10*3/uL Normal 0.00-0.40 [facility] Comment on above: Performed By: #### 5 7021-8 #### KELECHI VELÁZQUEZ L ([id number]) [facility] ([facility]) [address] [place] [address] 94590 Eosinophils/100 WBC (Bld) 2.4 % Normal 0.0-6.0 [facility] Comment on above: Performed By: #### 5 7021-8 #### KELECHI EVLÁZQUEZ L ([id number]) [facility] ([facility]) [address] [place] [address] 37319 Erythrocyte distribution width (RBC) [Ratio] 16.1 % High 11.5-14.5 [facility] Comment on above: Performed By: #### 5 7021-8 #### KELECHI VELÁZQUEZ L ([id number]) [facility] ([facility]) [address] [place] [address] 64870 Hematocrit (Bld) [Volume fraction] 22.7 % Low 36.0-46.0 [facility] Comment on above: Performed By: #### 5 7021-8 #### KELECHI Garcia ([id number]) [facility] ([facility]) [address] [place] [address] Hemoglobin (Bld) [Mass/Vol] 7.2 g/dL Low 12.0-16.0 [facility] Comment on above: Performed By: #### 5 7021-8 #### KELECHI VELEZMOTZER L ([id number]) [facility] ([facility]) [address] [place] [address] 73001 Immature granulocytes (Bld) [#/Vol] 0.12 x10*3/uL Normal 0.00-0.50 [facility] Comment on above: Performed By: #### 5 7021-8 #### KELECHI VELÁZQUEZ L ([id number]) [facility] ([facility]) [id number] [place] [address] 24669 Immature granulocytes/100 WBC (Bld) 0.8 % Normal 0.0-0.9 [facility] Comment on above: Result Comment: Jannie ture Granulocyte Count (IG) includes promyelocytes, myelocytes and metamyelocytes but does not include bands. Percent differential counts (%) should be interpreted in the context of the absolute cell counts (cells/UL). Performed By: #### 5 7021-8 #### KELECHI Garcia ([id number]) [facility] ([facility]) [address] [place] [address] Lymphocytes (Bld) [#/Vol] 1.36 x10*3/uL Normal 0.80-3.00 [facility] Comment on above: Performed By: #### 5 7021-8 #### KELECHI VELÁZQUEZ L ([id number]) [facility] ([facility]) [address] [place] [address] Lymphocytes/100 WBC (Bld) 8.8 % Normal 13.0-44.0 [facility] Comment on above: Performed By: #### 5 7021-8 #### KELECHI VELEZMODEBBI L ([id number]) [facility] ([facility]) [address] [place] [address] MCH (RBC) [Entitic mass] 30.0 pg Normal 26.0-34.0 [facility] Comment on above: Performed By: #### 5 7021-8 #### KELECHI Garcia ([id number]) [facility] ([facility]) [address] [place] [id number] MCHC (RBC) [Mass/Vol] 31.7 g/dL Low 32.0-36.0 [facility] Comment on above: Performed By: #### 5 7021-8 #### KELECHI Garcia ([id number]) [facility] [facility] ([facility]) [address] [place] [address] 02536 MCV (RBC) [Entitic vol] 95 fL Normal 80-100 [facility] Comment on above: Performed By: #### 5 7021-8 #### KELECHI Garcia ([id number]) [facility] ([facility]) [address] [place] [address] 08760 Monocytes (Bld) [#/Vol] 1.10 x10*3/uL High 0.05-0.80 [facility] Comment on above: Performed By: #### 5 7021-8 #### KELECHI Garcia ([id number]) [facility] ([facility]) [address] [place] [address] 22200 Monocytes/100 WBC (Bld) 7.1 % Normal 2.0-10.0 [facility] Comment on above: Performed By: #### 5 7021-8 #### KELECHI Garcia ([id number]) [facility] ([facility]) [address] [place] [address] 65126 Neutrophils (Bld) [#/Vol] 12.33 x10*3/uL High 1.60-5.50 [facility] Comment on above: Result Comment: Perc ent differential counts (%) should be interpreted in the context of the absolute cell counts (cells/uL). Performed By: #### 5 7021-8 #### KELECHI Garcia ([id number]) [facility] ([facility]) [address] [place] [address] Neutrophils/100 WBC (Bld) 79.7 % Normal 40.0-80.0 [facility] Comment on above: Performed By: #### 5 7021-8 #### KELECHI Garcia ([id number]) [facility] ([facility]) [id number] [place] [address] 11610 Nucleated RBC/100 WBC (Bld) [Ratio] 0.0 /100 WBCs Normal 0.0-0.0 [facility] Comment on above: Performed By: #### 5 7021-8 #### KELECHI Garcia ([id number]) [facility] ([facility]) [address] [place] [address] 35787 Platelets (Bld) [#/Vol] 353 x10*3/uL Normal 150-450 [facility] Comment on above: Performed By: #### 5 7021-8 #### KELECHI Garcia ([id number]) [facility] ([facility]) [address] [place] [address] 43334 RBC (Bld) [#/Vol] 2.40 x10*6/uL Low 4.00-5.20 [facility] Comment on above: Performed By: #### 5 7021-8 #### KELECHI Garcia ([id number]) [facility] ([facility]) [id number] [place] [address] 63723 WBC (Bld) [#/Vol] 15.5 x10*3/uL High 4.4-11.3 [facility] Comment on above: Performed By: #### 5 7021-8 #### KELECHI Garcia ([id number]) [facility] ([facility]) [address] [place] [address] 96162 Basophils (Bld) [#/Vol] 0.16 10*3/uL High [facility] Basophils/100 WBC (Bld) 1.1 % 0.0 - 2.0 % [facility] Eosinophils (Bld) [#/Vol] 0.46 10*3/uL High [facility] Eosinophils/100 WBC (Bld) 3.2 % 0.0 - 6.0 % [facility] Immature granulocytes (Bld) [#/Vol] 0.07 10*3/uL [facility] Immature granulocytes/100 WBC (Bld) 0.5 % 0.0 - 0.9 % [facility] Comment on above: Immature Granulocyte Count (IG) includes promyelocytes, myelocytes and metamyelocytes but does not include bands. Percent differential counts (%) should be interpreted in the context of the absolute cell counts (cells/UL). Lymphocytes (Bld) [#/Vol] 1.77 10*3/uL [facility] Lymphocytes/100 WBC (Bld) 12.3 % 13.0 - 44.0 % [facility] Monocytes (Bld) [#/Vol] 1.25 10*3/uL [facility] Monocytes/100 WBC (Bld) 8.7 % 2.0 - 10.0 % [facility] Neutrophils (Bld) [#/Vol] 10.69 10*3/uL High [facility] Comment on above: Percent differential counts (%) should be interpreted in the context of the absolute cell counts (cells/uL). Neutrophils/100 WBC (Bld) 74.2 % 40.0 - 80.0 % [facility] Basophils (Bld) [#/Vol] 0.16 x10*3/uL High 0.00-0.10 [facility] Comment on above: Performed By: #### 5 7021-8 #### KELECHI Garcia ([id number]) [facility] ([facility]) [address] [place] [address] Basophils/100 WBC (Bld) 1.1 % Normal 0.0-2.0 [facility] Comment on above: Performed By: #### 5 7021-8 #### KELECHI Garcia ([id number]) [facility] ([facility]) [address] [place] [address] Eosinophils (Bld) [#/Vol] 0.46 x10*3/uL High 0.00-0.40 [facility] Comment on above: Performed By: #### 5 7021-8 #### KELECHI VELEZMOTZER L ([id number]) [facility] ([facility]) [address] [place] [address] 45615 Eosinophils/100 WBC (Bld) 3.2 % Normal 0.0-6.0 [facility] Comment on above: Performed By: #### 5 7021-8 #### KELECHI SCHMOTZER L ([id number]) [facility] ([facility]) [address] [place] [address] 28991 Immature granulocytes (Bld) [#/Vol] 0.07 x10*3/uL Normal 0.00-0.50 [facility] Comment on above: Performed By: #### 5 7021-8 #### KELECHI VELEZMOTZER L ([id number]) [facility] ([facility]) [address] [place] [address] 28209 Immature granulocytes/100 WBC (Bld) 0.5 % Normal 0.0-0.9 [facility] Comment on above: Result Comment: Jannie ture Granulocyte Count (IG) includes promyelocytes, myelocytes and metamyelocytes but does not include bands. Percent differential counts (%) should be interpreted in the context of the absolute cell counts (cells/UL). Performed By: #### 5 7021-8 #### KELECHI VELEZMOTZER L ([id number]) [facility] ([facility]) [address] [place] [address] 68225 Lymphocytes (Bld) [#/Vol] 1.77 x10*3/uL Normal 0.80-3.00 [facility] Comment on above: Performed By: #### 5 7021-8 #### KELECHI VELEZMOTZER L ([id number]) [facility] ([facility]) [address] [place] [address] 45851 Lymphocytes/100 WBC (Bld) 12.3 % Normal 13.0-44.0 [facility] Comment on above: Performed By: #### 5 7021-8 #### KELECHI VELEZMOTZER L ([id number]) [facility] ([facility]) [address] [place] [address] [place] [address] Monocytes (Bld) [#/Vol] 1.25 x10*3/uL High 0.05-0.80 [facility] Comment on above: Performed By: #### 5 7021-8 #### KELECHI Garcia ([id number]) [facility] ([facility]) [address] [place] [address] Monocytes/100 WBC (Bld) 8.7 % Normal 2.0-10.0 [facility] Comment on above: Performed By: #### 5 7021-8 #### KELECHI Garcia ([id number]) [facility] ([facility]) [address] [place] [address] 43956 Neutrophils (Bld) [#/Vol] 10.69 x10*3/uL High 1.60-5.50 [facility] Comment on above: Result Comment: Perc ent differential counts (%) should be interpreted in the context of the absolute cell counts (cells/uL). Performed By: #### 5 7021-8 #### KELECHI Garcia ([id number]) [facility] ([facility]) [address] [place] [address] Neutrophils/100 WBC (Bld) 74.2 % Normal 40.0-80.0 [facility] Comment on above: Performed By: #### 5 7021-8 #### KELECHI Garcia ([id number]) [facility] ([facility]) [address] [place] [address] Basophils (Bld) [#/Vol] 0.18 10*3/uL High [facility] Basophils/100 WBC (Bld) 1.2 % 0.0 - 2.0 % [facility] Eosinophils (Bld) [#/Vol] 0.39 10*3/uL [facility] Eosinophils/100 WBC (Bld) 2.5 % 0.0 - 6.0 % [facility] Erythrocyte distribution width (RBC) [Ratio] 16.3 % High 11.5 - 14.5 % [facility] Hematocrit (Bld) [Volume fraction] 21.9 % Low 36.0 - 46.0 % [facility] Hemoglobin (Bld) [Mass/Vol] 7 g/dL Low 12.0 - 16.0 g/dL [facility] Immature granulocytes (Bld) [#/Vol] 0.09 10*3/uL [facility] Immature granulocytes/100 WBC (Bld) 0.6 % 0.0 - 0.9 % [facility] Comment on above: Immature Granulocyte Count (IG) includes promyelocytes, myelocytes and metamyelocytes but does not include bands. Percent differential counts (%) should be interpreted in the context of the absolute cell counts (cells/UL). Interpretation and review of laboratory results Abnormal [facility] Lymphocytes (Bld) [#/Vol] 1.77 10*3/uL [facility] Lymphocytes/100 WBC (Bld) 11.4 % 13.0 - 44.0 % [facility] MCH (RBC) [Entitic mass] 30.4 pg 26.0 - 34.0 pg [facility] MCHC (RBC) [Mass/Vol] 32 g/dL 32.0 - 36.0 g/dL [facility] MCV (RBC) [Entitic vol] 95 fL 80 - 100 fL [facility] Monocytes (Bld) [#/Vol] 1.34 10*3/uL High [facility] Monocytes/100 WBC (Bld) 8.6 % 2.0 - 10.0 % [facility] Neutrophils (Bld) [#/Vol] 11.75 10*3/uL High [facility] Comment on above: Percent differential counts (%) should be interpreted in the context of the absolute cell counts (cells/uL). Neutrophils/100 WBC (Bld) 75.7 % 40.0 - 80.0 % [facility] Nucleated RBC/100 WBC (Bld) [Ratio] 0 % [facility] Platelets (Bld) [#/Vol] 341 10*3/uL [facility] RBC (Bld) [#/Vol] 2.3 10*6/uL Low [facility] WBC (Bld) [#/Vol] 15.5 10*3/uL High [facility] Basophils (Bld) [#/Vol] 0.18 x10*3/uL High 0.00-0.10 [facility] Comment on above: Performed By: #### 5 7021-8 #### KELECHI Garcia ([id number]) [facility] ([facility]) [address] [place] [address] 80715 Basophils/100 WBC (Bld) 1.2 % Normal 0.0-2.0 [facility] Comment on above: Performed By: #### 5 7021-8 #### KELECHI Garcia ([id number]) [facility] ([facility]) [address] [place] [address] 48822 Eosinophils (Bld) [#/Vol] 0.39 x10*3/uL Normal 0.00-0.40 [facility] Comment on above: Performed By: #### 5 7021-8 #### KELECHI Garcia ([id number]) [facility] ([facility]) [address] [place] [address] 74793 Eosinophils/100 WBC (Bld) 2.5 % Normal 0.0-6.0 [facility] Comment on above: Performed By: #### 5 7021-8 #### KELECHI Garcia ([id number]) [facility] ([facility]) [address] [place] [address] 10372 Erythrocyte distribution width (RBC) [Ratio] 16.3 % High 11.5-14.5 [facility] Comment on above: Performed By: #### 5 7021-8 #### KELECHI Garcia ([id number]) [facility] ([facility]) [address] [place] [address] 85763 Hematocrit (Bld) [Volume fraction] 21.9 % Low 36.0-46.0 [facility] Comment on above: Performed By: #### 5 7021-8 #### KELECHI Garcia ([id number]) [facility] ([facility]) [address] [place] [address] 76423 Hemoglobin (Bld) [Mass/Vol] 7.0 g/dL Low 12.0-16.0 [facility] Comment on above: Performed By: #### 5 7021-8 #### KELECHI Garcia ([id number]) [facility] ([facility]) [address] [place] [address] 15526 Immature granulocytes (Bld) [#/Vol] 0.09 x10*3/uL Normal 0.00-0.50 [facility] Comment on above: Performed By: #### 5 7021-8 #### KELECHI Garcia ([id number]) [facility] ([facility]) [address] [place] [address] 08496 Immature granulocytes/100 WBC (Bld) 0.6 % Normal 0.0-0.9 [facility] Comment on above: Result Comment: Jannie ture Granulocyte Count (IG) includes promyelocytes, myelocytes and metamyelocytes but does not include bands. Percent differential counts (%) should be interpreted in the context of the absolute cell counts (cells/UL). Performed By: #### 5 7021-8 #### KELECHI Garcia ([id number]) [facility] ([facility]) [address] [place] [address] 34714 Lymphocytes (Bld) [#/Vol] 1.77 x10*3/uL Normal 0.80-3.00 [facility] Comment on above: Performed By: #### 5 7021-8 #### KELECHI Garcia ([id number]) [facility] ([facility]) [address] [place] [address] 43579 Lymphocytes/100 WBC (Bld) 11.4 % Normal 13.0-44.0 [facility] Comment on above: Performed By: #### 5 7021-8 #### KELECHI Garcia ([id number]) [facility] ([facility]) [address] [place] [address] 97966 MCH (RBC) [Entitic mass] 30.4 pg Normal 26.0-34.0 [facility] Comment on above: Performed By: #### 5 7021-8 #### KELECHI Garcia ([id number]) [facility] ([facility]) [address] [place] [address] MCHC (RBC) [Mass/Vol] 32.0 g/dL Normal 32.0-36.0 [facility] Comment on above: Performed By: #### 5 7021-8 #### KELECHI Garcia ([id number]) [facility] ([facility]) [address] [place] [address] 45585 MCV (RBC) [Entitic vol] 95 fL Normal 80-100 [facility] Comment on above: Performed By: #### 5 7021-8 #### KELECHI Garcia ([id number]) [facility] ([facility]) [address] [place] [address] 56284 Monocytes (Bld) [#/Vol] 1.34 x10*3/uL High 0.05-0.80 [facility] Comment on above: Performed By: #### 5 7021-8 #### KELECHI Garcia ([id number]) [facility] ([facility]) [address] [place] [address] 46653 Monocytes/100 WBC (Bld) 8.6 % Normal 2.0-10.0 [facility] Comment on above: Performed By: #### 5 7021-8 #### KELECHI Garcia ([id number]) [facility] ([facility]) [address] [place] [address] 37076 Neutrophils (Bld) [#/Vol] 11.75 x10*3/uL High 1.60-5.50 [facility] Comment on above: Result Comment: Perc ent differential counts (%) should be interpreted in the context of the absolute cell counts (cells/uL). Performed By: #### 5 7021-8 #### KELECHI Garcia ([id number]) [facility] ([facility]) [address] [place] [address] 48967 Neutrophils/100 WBC (Bld) 75.7 % Normal 40.0-80.0 [facility] Comment on above: Performed By: #### 5 7021-8 #### KELECHI Garcia ([id number]) [facility] ([facility]) [address] [place] [address] Nucleated RBC/100 WBC (Bld) [Ratio] 0.0 /100 WBCs Normal 0.0-0.0 [facility] Comment on above: Performed By: #### 5 7021-8 #### KELECHI Garcia ([id number]) [facility] ([facility]) [address] [place] [address] 88984 Platelets (Bld) [#/Vol] 341 x10*3/uL Normal 150-450 [facility] Comment on above: Performed By: #### 5 7021-8 #### KELECHI Garcia ([id number]) [facility] ([facility]) [address] [place] [address] 30800 RBC (Bld) [#/Vol] 2.30 x10*6/uL Low 4.00-5.20 [facility] Comment on above: Performed By: #### 5 7021-8 #### KELECHI Garcia ([id number]) [facility] ([facility]) [address] [place] [address] 14202 WBC (Bld) [#/Vol] 15.5 x10*3/uL High 4.4-11.3 [facility] Comment on above: Performed By: #### 5 7021-8 #### KELECHI Garcia ([id number]) [facility] ([facility]) [address] [place] [address] 22739 CBC panel Auto (Bld)on 08-31 Erythrocyte distribution width (RBC) [Ratio] 15.9 % High 11.5 - 14.5 % [facility] Hematocrit (Bld) [Volume fraction] 26.1 % Low 36.0 - 46.0 % [facility] Hemoglobin (Bld) [Mass/Vol] 8.2 g/dL Low 12.0 - 16.0 g/dL [facility] Interpretation and review of laboratory results Abnormal [facility] MCH (RBC) [Entitic mass] 30.3 pg 26.0 - 34.0 pg [facility] MCHC (RBC) [Mass/Vol] 31.4 g/dL Low 32.0 - 36.0 g/dL [facility] MCV (RBC) [Entitic vol] 96 fL 80 - 100 fL [facility] Nucleated RBC/100 WBC (Bld) [Ratio] 0 % [facility] Platelets (Bld) [#/Vol] 450 10*3/uL [facility] RBC (Bld) [#/Vol] 2.71 10*6/uL Low [facility] WBC (Bld) [#/Vol] 15.2 10*3/uL High [facility] Erythrocyte distribution width (RBC) [Ratio] 15.9 % High 11.5-14.5 [facility] Comment on above: Performed By: #### 5 7021-8 #### KELECHI Garcia ([id number]) [facility] ([facility]) [address] [place] [address] 54375 Hematocrit (Bld) [Volume fraction] 26.1 % Low 36.0-46.0 [facility] Comment on above: Performed By: #### 5 7021-8 #### KELECHI Garcia ([id number]) [facility] ([facility]) [address] [place] [address] 61994 Hemoglobin (Bld) [Mass/Vol] 8.2 g/dL Low 12.0-16.0 [facility] Comment on above: Performed By: #### 5 7021-8 #### KELECHI Garcia ([id number]) [facility] ([facility]) [address] [place] [address] 00116 MCH (RBC) [Entitic mass] 30.3 pg Normal 26.0-34.0 [facility] Comment on above: Performed By: #### 5 7021-8 #### KELECHI Garcia ([id number]) [facility] ([facility]) [address] [place] [address] 74895 MCHC (RBC) [Mass/Vol] 31.4 g/dL Low 32.0-36.0 [facility] Comment on above: Performed By: #### 5 7021-8 #### KELECHI Garcia ([id number]) [facility] ([facility]) [address] [place] [address] MCV (RBC) [Entitic vol] 96 fL Normal 80-100 [facility] Comment on above: Performed By: #### 5 7021-8 #### KELECHI Garcia ([id number]) [facility] ([facility]) [address] [place] [address] 24756 Nucleated RBC/100 WBC (Bld) [Ratio] 0.0 /100 WBCs Normal 0.0-0.0 [facility] Comment on above: Performed By: #### 5 7021-8 #### KELECHI Garcia ([id number]) [facility] ([facility]) [address] [place] [address] 10368 Platelets (Bld) [#/Vol] 450 x10*3/uL Normal 150-450 [facility] Comment on above: Performed By: #### 5 7021-8 #### KELECHI Garcia ([id number]) [facility] ([facility]) [address] [place] [address] 27976 RBC (Bld) [#/Vol] 2.71 x10*6/uL Low 4.00-5.20 [facility] Comment on above: Performed By: #### 5 7021-8 #### KELECHI Garcia ([id number]) [facility] ([facility]) [address] [place] [address] 98914 WBC (Bld) [#/Vol] 15.2 x10*3/uL High 4.4-11.3 [facility] Comment on above: Performed By: #### 5 7021-8 #### KELECHI VELÁZQUEZ L ([id number]) [facility] ([facility]) [address] [place] [address] 00701 Complete blood count panelon 08-31-2024 Erythrocyte distribution width (RBC) [Ratio] 16.3 % High 11.5-14.5 [facility] Comment on above: Performed By: #### 5 8410-2 #### KELECHI VELÁZQUEZ L ([id number]) [facility] ([facility]) [address] [place] [address] Performed By: #### 5 7021-8 #### KELECHI VELÁZQUEZ L ([id number]) [facility] ([facility]) [address] [place] [address] Hematocrit (Bld) [Volume fraction] 22.2 % Low 36.0-46.0 [facility] Comment on above: Performed By: #### 5 8410-2 #### KELECHI VELÁZQUEZ L ([id number]) [facility] ([facility]) [address] [place] [address] Performed By: #### 5 7021-8 #### KELECHI VELEZMODEBBI L ([id number]) [facility] ([facility]) [address] [place] [address] Hemoglobin (Bld) [Mass/Vol] 7.2 g/dL Low 12.0-16.0 [facility] Comment on above: Performed By: #### 5 8410-2 #### KELECIH VELÁZQUEZ L ([id number]) [facility] ([facility]) [address] [place] [address] Performed By: #### 5 7021-8 #### KELECHI VELÁZQUEZ L ([id number]) [facility] ([facility]) [address] [place] [address] MCH (RBC) [Entitic mass] 30.8 pg Normal 26.0-34.0 [facility] Comment on above: Performed By: #### 5 8410-2 #### KELECHI VELÁZQUEZ L ([id number]) [facility] ([facility]) [address] [place], [place] [address] Performed By: #### 5 7021-8 #### KELECHI VELEZMOTZER L ([id number]) [facility] ([facility]) [address] [place], [place] [address] MCHC (RBC) [Mass/Vol] 32.4 g/dL Normal 32.0-36.0 [facility] Comment on above: Performed By: #### 5 8410-2 #### KELECHI VELÁZQUEZ L ([id number]) [facility] ([facility]) [address] [place] [address] Performed By: #### 5 7021-8 #### KELECHI VELÁZQUEZ L ([id number]) [facility] ([facility]) [address] [place] [address] MCV (RBC) [Entitic vol] 95 fL Normal 80-100 [facility] Comment on above: Performed By: #### 5 8410-2 #### KELECHI VELÁZQUEZ L ([id number]) [facility] ([facility]) [address] [place] [address] Performed By: #### 5 7021-8 #### KELECHI VELÁZQUEZ L ([id number]) [facility] ([facility]) [address] [place] [address] Nucleated RBC/100 WBC (Bld) [Ratio] 0.0 /100 WBCs Normal 0.0-0.0 [facility] Comment on above: Performed By: #### 5 8410-2 #### KELECHI Garcia ([id number]) [facility] ([facility]) [address] [place] [address] Performed By: #### 5 7021-8 #### KELECHI VELÁZQUEZ L ([id number]) [facility] ([facility]) [address] [place] [address] Platelets (Bld) [#/Vol] 332 x10*3/uL Normal 150-450 [facility] Comment on above: Performed By: #### 5 8410-2 #### KELECHI VELÁZQUEZ L ([id number]) [facility] ([facility]) [address] [place], [place] [address] Performed By: #### 5 7021-8 #### KELECHI VELEZMODEBBI L ([id number]) [facility] ([facility]) [address] [place] [address] RBC (Bld) [#/Vol] 2.34 x10*6/uL Low 4.00-5.20 [facility] Comment on above: Performed By: #### 5 8410-2 #### KELECHI Garcia ([id number]) [facility] ([facility]) [address] [place] [address] Performed By: #### 5 7021-8 #### KELECHI Garcia ([id number]) [facility] ([facility]) [address] [place] [address] WBC (Bld) [#/Vol] 14.4 x10*3/uL High 4.4-11.3 [facility] Comment on above: Performed By: #### 5 8410-2 #### KELECHI Garcia ([id number]) [facility] ([facility]) [address] [place] [address] Performed By: #### 5 7021-8 #### KELECHI Garcia ([id number]) [facility] ([facility]) [address] [place] [address] Comprehensive metabolic 2000 panelon 08-31-2024 Albumin BCP dye [Mass/Vol] 3.2 g/dL Low 3.4 - 5.0 g/dL [facility] ALP [Catalytic activity/Vol] 89 U/L 33 - 136 U/L [facility] ALT With P-5'-P [Catalytic activity/Vol] 18 U/L 7 - 45 U/L [facility] Comment on above: Patients treated wit h Sulfasalazine may generate falsely decreased results for ALT. Anion gap [Moles/Vol] 19 mmol/L [facility] AST With P-5'-P [Catalytic activity/Vol] 43 U/L High 9 - 39 U/L [facility] Bilirubin [Mass/Vol] 0.7 mg/dL 0.0 - 1 .2 mg/dL [facility] Calcium [Mass/Vol] 7.8 mg/dL Low 8.6 - 10. 6 mg/dL [facility] Chloride [Moles/Vol] 88 mmol/L Low 98 - 10 7 mmol/L [facility] CO2 [Moles/Vol] 29 mmol/L 21 - 32 mmol/L [facility] Creatinine [Mass/Vol] 7.69 mg/dL High 0.50 - 1.05 mg/dL [facility] GFR/1.73 sq M.predicted among non-blacks MDRD (S/P/Bld) [Vol rate/Area] 5 mL/min/{1.73_m2} Low - PINF [facility] Comment on above: Calculations of katy mated GFR are performed using the 2020 CKD-EPI Study Refit equation without the race variable for the IDMS-Traceable creatinine methods. https://jasn.asnjournals.org/content/early/ASN.2020 337575 Glucose [Mass/Vol] 86 mg/dL 74 - 99 mg/dL [facility] Potassium [Moles/Vol] 4.1 mmol/L 3.5 - 5.3 mmol/L [place] [facility] Protein [Mass/Vol] 5.8 g/dL Low 6.4 - 8.2 g/dL [facility] Sodium [Moles/Vol] 132 mmol/L Low 136 - 145 mmol/L [facility] Urea nitrogen [Mass/Vol] 47 mg/dL High 6 - 23 mg/dL [facility] Albumin BCP dye [Mass/Vol] 3.2 g/dL Low 3.4-5.0 [facility] Comment on above: Performed By: #### 2 4323-8 #### KELECHI Garcia ([id number]) [facility] ([facility]) [address] [place] [address] ALP [Catalytic activity/Vol] 89 U/L Normal 33-136 [facility] Comment on above: Performed By: #### 2 4323-8 #### KELECHI Garcia ([id number]) [facility] ([facility]) [address] [place] [address] ALT With P-5'-P [Catalytic activity/Vol] 18 U/L Normal 7-45 [facility] Comment on above: Result Comment: Patsy ents treated with Sulfasalazine may generate falsely decreased results for ALT. Performed By: #### 2 4323-8 #### KELECHI Garcia ([id number]) [facility] ([facility]) [address] [place] [address] Anion gap [Moles/Vol] 19 mmol/L Normal [facility] Comment on above: Performed By: #### 2 4323-8 #### KELECHI Garcia ([id number]) [facility] ([facility]) [address] [place] [address] AST With P-5'-P [Catalytic activity/Vol] 43 U/L High 9-39 [facility] Comment on above: Performed By: #### 2 4323-8 #### KELECHI Garcia ([id number]) [facility] ([facility]) [address] [place] [address] Bilirubin [Mass/Vol] 0.7 mg/dL Normal 0.0-1.2 [facility] Comment on above: Performed By: #### 2 4323-8 #### KELECHI Garcia ([id number]) [facility] ([facility]) [address] [place] [address] Calcium [Mass/Vol] 7.8 mg/dL Low 8.6-10.6 [facility] Comment on above: Performed By: #### 2 4323-8 #### KELECHI Garcia ([id number]) [facility] ([facility]) [address] [place] [address] Chloride [Moles/Vol] 88 mmol/L Low 98-107 [facility] Comment on above: Performed By: #### 2 4323-8 #### KELECHI Garcia ([id number]) [facility] ([facility]) [address] [place] [address] CO2 [Moles/Vol] 29 mmol/L Normal 21-32 [facility] Comment on above: Performed By: #### 2 4323-8 #### KELECHI Garcia ([id number]) [facility] ([facility]) [address] [place] [address] Creatinine [Mass/Vol] 7.69 mg/dL High 0.50-1.05 [facility] Comment on above: Performed By: #### 2 4323-8 #### KELECHI Garcia ([id number]) [facility] ([facility]) [address] [place] [address]26[address] Glomerular filtration rate/1.73 sq M.predicted 5 mL/min/1.73m*2 Low >60 [facility] Comment on above: Result Comment: Calc ulations of estimated GFR are performed using the 2020 CKD-EPI Study Refit equation without the race variable for the IDMS-Traceable creatinine methods. https://jasn.asnjournals.org/content/early/ASN.2020 128431 Performed By: #### 2 4323-8 #### KELECHI Garcia ([id number]) [facility] ([facility]) [address] [place] [address] Glucose [Mass/Vol] 86 mg/dL Normal 74-99 [facility] Comment on above: Performed By: #### 2 4323-8 #### KELECHI Garcia ([id number]) [facility] ([facility]) [address] [place] [address] Potassium [Moles/Vol] 4.1 mmol/L Normal 3.5-5.3 [facility] Comment on above: Performed By: #### 2 4323-8 #### KELECHI Garcia ([id number]) [facility] ([facility]) [address] [place] [address] Protein [Mass/Vol] 5.8 g/dL Low 6.4-8.2 [facility] Comment on above: Performed By: #### 2 4323-8 #### KELECHI VELÁZQUEZ L ([id number]) [facility] ([facility]) [address] [place] [address] Sodium [Moles/Vol] 132 mmol/L Low 136-145 [facility] Comment on above: Performed By: #### 2 4323-8 #### KELECHI Garcia ([id number]) [facility] ([facility]) [address] [place] [address] 12843 Urea nitrogen [Mass/Vol] 47 mg/dL High 6-23 [facility] Comment on above: Performed By: #### 2 4323-8 #### KELECHI Garcia ([id number]) [facility] ([facility]) [address] [place] [address] HBV surface Ab Qn (S)on 08-04 Interpretation and review of laboratory results Abnormal [facility] HBV surface Ag IA Qlon 08-31 Interpretation and review of laboratory results Normal [facility] Hepatitis B surface antibody on 08-31-2024 HBV surface Ab Qn (S) High NINF [facility] Comment on above: Interpretive Criteri a: <10 mIU/mL Nonreactive >=10 mIU/mL Reactive Biotin interference may cause falsely decreased results. Patients taking a Biotin dose of up to 5 mg/day should refrain from taking Biotin for 24 hours before sample collection. Providers may contact their local laboratory for further information. Hepatitis B surface antigeno n 08-31-2024 HBV surface Ag IA Ql Non-Reactive Nonreactive U [facility] Comment on above: Biotin interference may cause falsely decreased results. Patients taking a Biotin dose of up to 5 mg/day should refrain from taking Biotin for 24 hours before sample collection. Providers may contact their local laboratory for further information. Hepatitis B virus surface Ab on 08-31-2024 HBV surface Ab Qn (S) >1000.0 High <10.0 [facility] Comment on above: Result Comment: Inte rpretive Criteria: <10 mIU/mL Nonreactive >=10 mIU/mL Reactive Biotin interference may cause falsely decreased results. Patients taking a Biotin dose of up to 5 mg/day should refrain from taking Biotin for 24 hours before sample collection. Providers may contact their local laboratory for further information. Performed By: #### 5 7021-8 #### KELECHI Garcia ([id number]) [facility] ([facility]) [address] [place] [address] Hepatitis B virus surface Ag on 08-31-2024 HBV surface Ag IA Ql Non-Reactive Normal Nonreactive U [facility] Comment on above: Result Comment: Biot in interference may cause falsely decreased results. Patients taking a Biotin dose of up to 5 mg/day should refrain from taking Biotin for 24 hours before sample collection. Providers may contact their local laboratory for further information. Performed By: #### 5 7021-8 #### KELECHI Garcia ([id number]) [facility] ([facility]) [address] [place] [address] Iron and Iron binding capaci ty panelon 08-31-2024 Iron [Mass/Vol] 29 ug/dL Low 35 - 150 ug/dL [facility] Iron binding capacity [Mass/Vol] 139 ug/dL Low 240 - 445 ug/dL [facility] Iron binding capacity.unsaturated [Mass/Vol] 110 ug/dL 110 - 370 ug/dL [facility] Iron saturation [Mass fraction] 21 % Low 25 - 45 % [facility] Iron [Mass/Vol] 29 ug/dL Low 35-150 [facility] Comment on above: Performed By: #### 5 0190-8 #### KELECHI Garcia ([id number]) [facility] ([facility]) [address] [place] [address] Iron binding capacity [Mass/Vol] 139 ug/dL Low 240-445 [facility] Comment on above: Performed By: #### 5 0190-8 #### KELECHI Garcia ([id number]) [facility] ([facility]) [address] [place] [address] Iron binding capacity.unsaturated [Mass/Vol] 110 ug/dL Normal 110-370 [facility] Comment on above: Performed By: #### 5 0190-8 #### KELECHI Garcia ([id number]) [facility] ([facility]) [address] [place] [address] Iron saturation [Mass fraction] 21 % Low 25-45 [facility] Comment on above: Performed By: #### 5 0190-8 #### KELECHI Garcia ([id number]) [facility] ([facility]) [address] [place] [address] Laboratory - Hematology and Cell countson 08-31-2024 Erythrocyte distribution width (RBC) [Ratio] 16.3 % High 11.5 - 14.5 % [facility] Hematocrit (Bld) [Volume fraction] 22.2 % Low 36.0 - 46.0 % [facility] Hemoglobin (Bld) [Mass/Vol] 7.2 g/dL Low 12.0 - 16.0 g/dL [facility] MCH (RBC) [Entitic mass] 30.8 pg 26.0 - 34.0 pg [facility] MCHC (RBC) [Mass/Vol] 32.4 g/dL 32.0 - 36.0 g/dL [facility] MCV (RBC) [Entitic vol] 95 fL 80 - 100 fL [facility] Nucleated RBC/100 WBC (Bld) [Ratio] 0 % [facility] Platelets (Bld) [#/Vol] 332 10*3/uL [facility] RBC (Bld) [#/Vol] 2.34 10*6/uL Low [facility] WBC (Bld) [#/Vol] 14.4 10*3/uL High [facility] Magnesiumon 08-31-2024 Magnesium [Mass/Vol] 2.04 mg/dL 1.60 - 2.40 mg/dL [facility] Magnesium [Mass/Vol] 2.04 mg/dL Normal 1.60-2.40 [facility] Comment on above: Performed By: #### 1 9123-9 #### KELECHI Garcia ([id number]) [facility] ([facility]) [address] [place] [address] Magnesium [Mass/Vol]on 08-31 Interpretation and review of laboratory results Normal [facility] No Panel Informationon 08-31 Interpretation and review of laboratory results Abnormal [facility] Interpretation and review of laboratory results Abnormal [facility] Interpretation and review of laboratory results Abnormal [facility] PT and aPTT panel Coag (PPP) on 08-31-2024 aPTT Coag (PPP) [Time] 25 s Low Un [facility] INR Coag (PPP) [Relative time] 1 {INR} 0.9 - 1.1 [facility] Interpretation and review of laboratory results Abnormal [facility] PT Coag (PPP) [Time] 11.4 s [facility] The APTT is no longe r used for monitoring Unfractionated Heparin Therapy. For monitoring Heparin Therapy, use the Heparin Assay. [facility] aPTT Coag (PPP) [Time] 25 s Low 26-36 Un [facility] Comment on above: Order Comment: The A PTT is no longer used for monitoring Unfractionated Heparin Therapy. For monitoring Heparin Therapy, use the Heparin Assay. Performed By: #### 3 4529-8 #### KELECHI Garcia ([id number]) [facility] ([facility]) [address] [place] [address] INR Coag (PPP) [Relative time] 1.0 Normal 0.9-1.1 [facility] Comment on above: Order Comment: The A PTT is no longer used for monitoring Unfractionated Heparin Therapy. For monitoring Heparin Therapy, use the Heparin Assay. Performed By: #### 3 4529-8 #### KELECHI Garcia ([id number]) [facility] ([facility]) [address] [place] [address] PT Coag (PPP) [Time] 11.4 s Normal 9.8-12.4 [facility] Comment on above: Order Comment: The A PTT is no longer used for monitoring Unfractionated Heparin Therapy. For monitoring Heparin Therapy, use the Heparin Assay. Performed By: #### 3 4529-8 #### KELECHI Garcia ([id number]) [facility] ([facility]) [address] [place] [address] Phosphateon 08-31-2024 Phosphate [Mass/Vol] 7.0 mg/dL High 2.5-4.9 [facility] Comment on above: Performed By: #### 2 777-1 #### KELECHI Garcia ([id number]) [facility] ([facility]) [address] [place] [address]10[address] Phosphate [Mass/Vol]on 08-31 Interpretation and review of laboratory results Abnormal [facility] Phosphoruson 08-31-2024 Phosphate [Mass/Vol] 7 mg/dL High 2.5 - 4 .9 mg/dL [facility] Vancomycinon 08-31-2024 Vancomycin [Mass/Vol] 35.9 ug/mL High 5.0 - 20.0 ug/mL [facility] Vancomycin [Mass/Vol] 35.9 ug/mL High 5.0-20.0 [facility] Comment on above: Order Comment: ADD O N TO 0051 LABSVancomycin levels can be monitored according to area under the curve (AUC) or concentration (ug/mL). The preferred monitoring strategy is determined by the patient's renal function and indication for therapy.For AUC monitoring, a random vancomycin level should be interpreted in the context of AUC rather than the concentration at a single point in time.For concentration monitoring, a trough concentration drawn immediately prior to the next dose is preferred.Therapeutic ranges using concentration-guided results:Peak (all ages): 30.0-40.0 ug/mLTrough (all ages): 10.0-20.0 ug/mL Performed By: #### 5 7021-8 #### KELECHI Garcia ([id number]) [facility] ([facility]) [address] [place] [address] Vancomycin [Mass/Vol]on 08-04 Vancomycin levels can be monitored according to area under the curve (AUC) or concentration (ug/mL). The preferred monitoring strategy is determined by the patient's renal function and indication for therapy. For AUC monitoring, a random vancomycin level should be interpreted in the context of AUC rather than the concentration at a single point in time. For concentration monitoring, a trough concentration drawn immediately prior to the next dose is preferred. Therapeutic ranges using concentration-guided results: Peak (all ages): 30.0-40.0 ug/mL Trough (all ages): 10.0-20.0 ug/mL [facility] US RLE Soft Tissue OR Joint Limitedon 08-30-2024 US RLE Soft Tissue OR Joint Limited ULTRASOUND OF A MASSLIKE/ABSCESS REGION WITHIN THE RIGHT THIGH: CLINICAL INDICATION: Recent fall injury with enlarging painful right upper medial thigh TECHNIQUE: Real-time ultrasonographic evaluation of the right upper thigh was performed prior to potential drainage or aspiration procedure. COMPARISON: CT from earlier the same date FINDINGS: Complex mixed echogenicity collection is present within the anterior upper thigh. AP dimension is at least 4.5 cm with transverse dimension of at least 8 cm. Some small cystic spaces are noted measuring less than 2 cm. Color flow imaging demonstrates no active swirling region of blood flow. IMPRESSION: Hematoma within the right thigh without active expansion. In this setting, aspiration or drainage was not performed. I discussed these findings with automated orthopedic surgery following the ultrasound examination. Report Dictated on Authenticated by: Honorio Grande On: 08/30/2024 10:40 Read by: HONORIO GRANDE MD, MD Date: 08/30/2024 10:40 [facility] CTA RT Lower Extremity w/wo contraston 08-29-2024 CTA RT Lower Extremity w/wo contrast CTA RUNOFF right lower extremity TECHNIQUE: Contiguous axial imaging parameters specified by the exam protocol after the uneventful intravenous administration of contrast. Coronal and sagittal reformatted imaging including performance and review of MIP, 3D or surface shading reconstructed images. TECHNICAL: Contrast Pharmaceutical: 75 mL Iodinated Contrast Route of administration: Intravenous Enteric contrast: None RADIATION OPTIMIZATION: CT was performed using one or more of the following dose reduction techniques: automated exposure control, adjustment of the mA and/or kV according to patient size, and/or use of iterative reconstruction techniques. CLINICAL INFORMATION: Abscess right thigh, pain COMPARISON: No comparison exams available at the time of dictation. FINDINGS: VASCULAR: ] PELVIC STATION: RIGHT ILIAC: Common iliac artery: The common iliac artery is patent without aneurysm. Internal iliac artery: There is flow within the internal iliac artery. External iliac artery: There is flow within the external iliac artery. LEFT ILIAC: Common iliac artery: The common iliac artery is patent without aneurysm. Internal iliac artery: There is flow within the internal iliac artery. External iliac artery: There is flow within the external iliac artery. RIGHT LOWER EXTREMITY: Common femoral artery: The common femoral artery is patent with some atherosclerotic plaque but not apparent flow-limiting stenosis. Profunda femoral artery: The profunda femoral artery is patent with some atherosclerotic plaque but not apparent flow-limiting stenosis. Superficial femoral artery: The superficial femoral artery is patent with some atherosclerotic plaque but not apparent flow-limiting stenosis. Popliteal artery: Popliteal artery is patent without flow-limiting stenosis or aneurysm. Tibioperoneal trunk: The tibioperoneal trunk is patent. Three-vessel runoff to the right ankle. Other: There is focal contrast enhancement with surrounding edema along the deep quadricep musculature at the level of the proximal femoral diaphysis consistent with acute hemorrhage. Associated muscular swelling and hematoma. LEFT LOWER EXTREMITY: Common femoral artery: The common femoral artery is patent with some atherosclerotic plaque but not apparent flow-limiting stenosis. Profunda femoral artery: The profunda femoral artery is patent with some atherosclerotic plaque but not apparent flow-limiting stenosis. Superficial femoral artery: The superficial femoral artery is patent without flow-limiting stenosis. Popliteal artery: Popliteal artery is patent without flow-limiting stenosis or aneurysm. Tibioperoneal trunk: The tibioperoneal trunk is patent. Three-vessel runoff to the distal lower leg/ankle. IMPRESSION: 1. Focal abnormal enhancement/contrast blush identified along the deep central quadricep musculature at the level of the proximal femoral diaphysis consistent with acute hemorrhage. Associated moderate hematoma here which measures approximately 7.5 x 9 cm in size and extends approximately 14 cm in length. 2. Right leg: No significant stenosis with three-vessel runoff. 3. Left leg: No significant stenosis with three-vessel runoff. Report electronically signed by: Robson Genao MD on August 30, 07:31 AM EDT Read by: ROBSON GENAO MD, MD Date: 08/30/2024 07:31 [facility] Comment on above: Order Comment: TRAUM A Please call CT department to schedule [phone] Leukodepleted Red Cells Rele [facility] 08-29-2024 Product Code E0336 [facility] Comment on above: Performed By: #### R LRC ####[place] [address] Rel By [facility] Comment on above: Performed By: #### R LRC ####[place] [address] Rel Date 08/29/2024 [facility] Comment on above: Performed By: #### R LRC ####[facility] [place], [place] [id number] Rel Time 1545 [facility] Comment on above: Performed By: #### R LRC ####[facility] [place] [address] Rel To MR [facility] Comment on above: Performed By: #### R LRC ####[facility] [place], [place] [address] [id number] [facility] Comment on above: Performed By: #### R LRC ####[facility] [place] [address] CT RT Lower Extremity wo con traston 08-27-2024 CT RT Lower Extremity wo contrast CT RIGHT LOWER EXTREMITY WITHOUT CONTRAST TECHNIQUE: Unenhanced CT of the right lower extremity was obtained. Radiation Optimization: CT was performed using one or more of the following dose reduction techniques: automated exposure control, adjustment of the mA and/or kV according to patient size, and/or use of iterative reconstruction techniques. COMPARISON: None available. FINDINGS: Right total hip arthroplasty in satisfactory alignment. Marked streak artifact from hardware limits evaluation, particularly near the femoral stem. Diffuse skin thickening and subcutaneous edema suggestive of cellulitis. Multiple hypodense foci within the ventral thigh musculature, largest measuring approximately 2.1 cm (series 3, image 152), concerning for intramuscular abscesses, though evaluation is limited by artifact and absence of IV contrast. Generalized ventral thigh muscular swelling may reflect edema, infection, hematoma, or a combination. No subcutaneous emphysema. No periosteal reaction, osseous destruction, or acute fracture. No radiopaque foreign body. IMPRESSION: Ill-defined fluid collections and muscular swelling in the right ventral thigh concerning for intramuscular abscess and/or myositis; evaluation limited by artifact and lack of contrast. Diffuse subcutaneous edema suggestive of cellulitis. Right total hip arthroplasty in satisfactory alignment. RECOMMENDATION: Consider MRI or three-phase bone scan for improved assessment of soft tissue infection or early osteomyelitis if clinically indicated. Report electronically signed by: Ronald Rice MD on August 27, 03:58 AM EDT Read by: RONALD RICE MD, MD Date: 08/27/2024 03:58 [facility] Comment on above: Order Comment: witho ut Contrast (No Oral or IV contrast) - look for abscess, right thigh Leukodepleted Red Cells Rele [facility] 08-20-2024 Product Code E0336 [facility] Comment on above: Performed By: #### R LRC ####[facility] [place] [address] Rel By SAD [facility] Comment on above: Performed By: #### R LRC ####[facility] [place] [address] Rel Date 08/20/24 [facility] Comment on above: Performed By: #### R LRC ####[place] [address] Rel Time 09:30 [facility] Comment on above: Performed By: #### R LRC ####[place] [address] Rel To CAT [facility] Comment on above: Performed By: #### R LRC ####[place] [address] [id number] [facility] Comment on above: Performed By: #### R LRC ####[place] [address] XR Chest 1 view-Mobileon XR Chest 1 view-Mobile CHEST CPT 57431 - RADIOLOGIC EXAMINATION, CHEST; SINGLE VIEW COMPARISON: Comparison is made to the exam dated August 17. FINDINGS: CARDIOVASCULAR: Cardiomediastinal silhouette is not enlarged. LUNGS: No evidence of focal consolidation, vascular redistribution, or pleural fluid. No radiographic evidence of active tuberculosis. OSSEOUS STRUCTURES: Bony structures are intact. SOFT TISSUES: No foreign bodies. TUBES/LINES/IMPLANTABL E DEVICES: Life support tubes and lines remain in similar position without pneumothorax. IMPRESSION: No radiographic evidence of acute cardiopulmonary disease. Report electronically signed by: Carly Gibson MD on August 18, 09:47 AM EDT Read by: CARLY GIBSON MD, MD Date: 08/18/2024 09:47 [facility] Comment on above: Order Comment: TRAUM A Please call CT department to schedule [phone] XR Chest 1 view-Mobileon XR Chest 1 view-Mobile CHEST COMPARISON: Same-day radiograph FINDINGS: Interval placement of left IJ line, likely terminating in the SVC. No other significant change in exam The need for further evaluation with CT chest should be determined clinically. IMPRESSION: Left IJ line, as above. Report electronically signed by: Jorgito La MD on August 17, 07:11 PM EDT Read by: JORGITO LA MD, MD Date: 08/17/2024 19:11 [facility] XR Chest 1 view-Mobile Chest radiograph Comparison: August 16. Findings: Endotracheal tube above liane. NG tube below diaphragm. No pneumothorax. Mild vascular congestion. Persistent subtle bilateral pulmonary opacities overall improving. No significant effusion. Heart size stable. Impression: No pneumothorax Report electronically signed by: Jamie Hays MD on August 17, 08:04 PM EDT Read by: JAMIE HAYS DO, MD Date: 08/17/2024 20:04 [facility] Comment on above: Order Comment: Paul row 0600 CK Totalon 08-16-2024 CK [Catalytic activity/Vol] 20 U/L Low 26-192 [facility] Comment on above: Performed By: #### C K ####[facility] [place] [address] US Aspiration Absc/Hemat/Bul /Cyston 08-16-2024 US Aspiration Absc/Hemat/Bul/Cyst ULTRASOUND GUIDED ABSCESS ASPIRATION: CLINICAL INDICATION: Right thigh collection. TECHNIQUE: Following discussion with the patient regarding risks, benefits and alternatives along with timeout to document the patient's name, site and nature of the procedure, the skin was sterilely prepared and local anesthesia was applied. Under real-time ultrasound guidance, a 5 Cypriot Yueh needle was advanced into the collection in the right anterolateral thigh. Aspiration was performed with the yield of 10mL of purulent fluid. The specimen was sent for pathologic evaluation, including culture and sensitivity. The patient tolerated procedure well. IMPRESSION: Successful aspiration of right anterolateral thigh collection yielding 10 mL purulent fluid. Report Dictated on Authenticated by: Franco Majano On: 08/16/2024 16:13 Read by: FRANCO MAJANO MD, MD Date: 08/16/2024 16:13 [facility] US Guid Ndl Plcmt W/Imageon 08-16-2024 US Guid Ndl Plcmt W/Image ULTRASOUND GUIDED ABSCESS ASPIRATION: CLINICAL INDICATION: Right thigh collection. TECHNIQUE: Following discussion with the patient regarding risks, benefits and alternatives along with timeout to document the patient's name, site and nature of the procedure, the skin was sterilely prepared and local anesthesia was applied. Under real-time ultrasound guidance, a 5 Cypriot Yueh needle was advanced into the collection in the right anterolateral thigh. Aspiration was performed with the yield of 10mL of purulent fluid. The specimen was sent for pathologic evaluation, including culture and sensitivity. The patient tolerated procedure well. IMPRESSION: Successful aspiration of right anterolateral thigh collection yielding 10 mL purulent fluid. Report Dictated on Authenticated by: Franco Majano On: 08/16/2024 16:13 Read by: FRANCO MAJANO MD, MD Date: 08/16/2024 16:13 [facility] XR Abdomen single AP view-KU Bon 08-16-2024 XR Abdomen single AP view-KUB ABDOMEN COMPARISON: August 15, 2024 FINDINGS: BOWEL GAS PATTERN: Non-specific and non-obstructive gas pattern. Scattered air within non-distended small bowel loops. Scattered air and feces within non-distended large bowel loops. Scattered enteric contrast FREE AIR: None. ABNORMAL CALCIFICATIONS: No pathological calcifications are identified. OSSEOUS STRUCTURES: Multilevel disc space narrowing with endplate spurring and/or bridging osteophyte formation within the visualized spine. Bilateral total hip arthroplasties SOFT TISSUES: No radiopaque foreign body is seen. TUBES/LINES/IMPLANTABL E DEVICES: NG/OG tube is identified extending below the diaphragm with its tip overlying the left upper quadrant/epigastrium presumably within the stomach. Right femoral line terminating overlying the right SI joint IMPRESSION: 1. Nonspecific bowel-gas pattern. Report electronically signed by: Carly Gibson MD on August 16, 07:45 AM EDT Read by: CARLY GIBSON MD, MD Date: 08/16/2024 07:45 [facility] XR Chest 1 view-Mobileon XR Chest 1 view-Mobile CHEST CPT 11918 - RADIOLOGIC EXAMINATION, CHEST; SINGLE VIEW COMPARISON: Comparison is made to the prior day's exam. FINDINGS: Interval improvement in the appearance of the thorax from the previous exam. CARDIOVASCULAR: The cardiomediastinal silhouette is not enlarged. LUNGS: Bilateral infiltrates have improved in size, distribution and appearance. No sizable pleural effusion. No pneumothorax. Continued follow-up suggested. OSSEOUS STRUCTURES: Bony structures are similar. SOFT TISSUES: No foreign bodies. TUBES/LINES/IMPLANTABL E DEVICES: Life support tubes remain in similar position without pneumothorax. IMPRESSION: 1. Improved appearance of the thorax. Report electronically signed by: Carly Gibson MD on August 16, 07:44 AM EDT Read by: CARLY GIBSON MD, MD Date: 08/16/2024 07:44 Normal [facility] XR Hip Right 2-3 viewson XR Hip Right 2-3 views 2 VIEWS OF THE [facility] HIP COMPARISON: No comparison exams available at the time of dictation. FINDINGS: OSSEOUS STRUCTURES: There is no evidence of an acute osseous fracture. HIP JOINT: Alignment maintained. SOFT TISSUES: No radiographic evidence of soft tissue swelling. No radiopaque foreign body. HARDWARE: Right total hip arthroplasty in normal position. A right femoral vascular catheter is noted. RECOMMENDATIONS: Please note that CT/MRI are more sensitive for the detection of radiographically occult fractures and in the setting of trauma may be considered for further evaluation if deemed clinically appropriate. IMPRESSION: 1. No radiographic evidence of an acute fracture. 2. Right total hip arthroplasty in normal position. PELVIS COMPARISON: No comparison exams available at the time of dictation. FINDINGS: OSSEOUS STRUCTURES: There is no evidence of an acute osseous fracture. HIP JOINT: Alignment maintained. SACROILIAC JOINTS: No diastasis of the sacroiliac joints. PUBIC SYMPHYSIS: No diastasis of the pubic symphysis. SOFT TISSUES: No radiographic evidence of soft tissue swelling. No radiopaque foreign body. HARDWARE: Bilateral total hip arthroplasties with intramedullary components in normal position. A right groin femoral catheter is noted to be present. RECOMMENDATIONS: Please note that CT/MRI are more sensitive for the detection of radiographically occult fractures and in the setting of trauma may be considered for further evaluation if deemed clinically appropriate. IMPRESSION: 1. No radiographic evidence of an acute fracture. 2. Bilateral total hip arthroplasties in normal position.. Report electronically signed by: Juni Wood MD on August 16, 12:38 PM EDT Read by: JUNI WOOD MD, MD Date: 08/16/2024 12:[address] [facility] [address] Brain wo contraston 08-15 CT Brain wo contrast CT HEAD WITHOUT CONTRAST TECHNICAL: Contiguous axial imaging from vertex to skull base without contrast administration. Additional coronal and sagittal reformatted imaging was performed. RADIATION OPTIMIZATION: CT was performed using one or more of the following dose reduction techniques: automated exposure control, adjustment of the mA and/or kV according to patient size, and/or use of iterative reconstruction techniques. COMPARISON: 08/14/2024 FINDINGS: There is no hemorrhage, mass-effect, midline shift, extra-axial fluid collection, or evidence for large vascular distribution infarct. The ventricles and sulci are symmetric. Moderate volume loss again noted. Moderate nonspecific multifocal white matter disease. The calvarium, intraorbital contents, bony orbits are grossly unremarkable. Paranasal sinuses are clear. Mastoid air cells are clear. IMPRESSION: 1. No evidence for acute intracranial process. 2. Stable volume loss and multifocal white matter disease Report electronically signed by: Matilde Turner DO on August 15, 05:16 AM EDT Read by: MATILDE TURNER DO, MD Date: 08/15/2024 05:16 [facility] Comment on above: Order Comment: CONTR AST PER RADIOLOGIST DISCRETION XR Abdomen single AP view-KU Bon 08-15-2024 XR Abdomen single AP view-KUB Abdomen. Single view. Recommendations: CT is more sensitive for abdomen/pelvis pathology. The need for further evaluation should be determined clinically. Comparison: 08/14/2024 Findings: NG/OG tube distal tip projects over the stomach. Gas-filled borderline sized loops of central bowel. Minimal scattered gas and fecal material in the colon. Prominent lytic changes around the acetabular component and femoral stem component of the left hip hardware. Consider loosening, particle disease or infection. Cannot exclude malignancy. Follow-up is recommended. Impression: 1. Prominent lytic changes around the left hip hardware 2. NG/OG tube distal tip projects over the stomach Report electronically signed by: Dhiraj Lagos DO on August 15, 05:49 AM EDT Read by: DHIRAJ LAGOS DO, MD Date: 08/15/2024 05:49 [facility] XR Chest 1 view-Mobileon XR Chest 1 view-Mobile CHEST CPT 22783 - RADIOLOGIC EXAMINATION, CHEST; SINGLE VIEW COMPARISON: Comparison is made to the August 15, 2024 at 0505 hrs. FINDINGS: Interval improvement in the appearance of the thorax from the previous exam. CARDIOVASCULAR: The cardiomediastinal silhouette is not enlarged. LUNGS: Bilateral infiltrates have improved in size, distribution and appearance. No sizable pleural effusion. No pneumothorax. Continued follow-up suggested. OSSEOUS STRUCTURES: Bony structures are similar. SOFT TISSUES: No foreign bodies. TUBES/LINES/IMPLANTABL E DEVICES: Life support tubes remain in similar position without pneumothorax. IMPRESSION: 1. Improved appearance of the thorax. Report electronically signed by: Carly Gibson MD on August 15, 07:33 PM EDT Read by: CARLY GIBSON MD, MD Date: 08/15/2024 19:33 [facility] XR Chest 1 view-Mobile Chest. Single vie w. Recommendations: CT is more sensitive for chest pathology. The need for further evaluation should be determined clinically. Comparison: Yesterday Findings: Diffuse opacities throughout the right and left lung. Raising question of edema, infiltrate or congestive changes. Follow-up to resolution to exclude underlying lesion. Small pleural effusions. Heart size within normal limits. Endotracheal tube distal tip is proximal to the liane. NG/OG tube distal tip projects over the stomach. Osseous structures are unchanged. Soft tissues are unremarkable. Impression: 1. Similar in appearance to the previous study. Report electronically signed by: Dhiraj Lagos DO on August 15, 05:50 AM EDT Read by: DHIRAJ LAGOS DO, MD Date: 08/15/2024 05:[address] [facility] [address] Brain wo contraston 08-14 CT Brain wo contrast CT HEAD TECHNICAL: Contiguous axial imaging from vertex to skull base without contrast administration. Additional coronal and sagittal reformatted imaging was performed. RADIATION OPTIMIZATION: CT was performed using one or more of the following dose reduction techniques: automated exposure control, adjustment of the mA and/or kV according to patient size, and/or use of iterative reconstruction techniques. Contrast Pharmaceutical: None Route of administration: Not applicable COMPARISON: No comparison exams available at the time of dictation. FINDINGS: PARENCHYMA: No acute intracranial hemorrhage, mass effect, or shift of midline structures. Nix-white matter differentiation is preserved. Chronic microvascular ischemia. Asymmetric to the right frontal region. Question asymmetric ischemic changes versus acute infarct. Consider MRI VENTRICLES: Size and configuration of the ventricular system is normal. CALVARIUM: No depressed or widely calvarial fracture. PARANASAL SINUSES/MASTOIDS: Visualized paranasal sinuses are clear. Mastoid air cells are aerated and clear. OTHER: Please note MRI is a more sensitive evaluation for the detection of acute stroke, particularly in the first several hours of symptoms and may be considered if clinically warranted. IMPRESSION: 1. No intracranial hemorrhage. Asymmetric chronic microvascular ischemia right periventricular matter versus early infarct. Consider MRI. Report electronically signed by: Kev Santana MD on August 14, 08:14 PM EDT Read by: KEV SANTANA MD, MD Date: 08/14/2024 20:14 [facility] Comment on above: Order Comment: TRAUM A CT Chest Abdomen and Pelvis with Contraston 08-14-2024 CT Chest Abdomen and Pelvis with Contrast CT THORAX TECHNICAL: Axial imaging through the thorax was performed after the uneventful intravenous administration of contrast including multiplanar reformatted imaging. RADIATION OPTIMIZATION: CT was performed using one or more of the following dose reduction techniques: automated exposure control, adjustment of the mA and/or kV according to patient size, and/or use of iterative reconstruction techniques. Contrast Pharmaceutical: Iodinated Contrast Route of administration: Intravenous Enteric contrast: None COMPARISON: No comparison exams available at the time of dictation. FINDINGS: LOWER NECK: No enlarged supraclavicular lymph nodes are present. No actionable nodule is present in the imaged portion of the thyroid lobes. Endotracheal tube and nasogastric tube present PULMONARY PARENCHYMA AND AIRWAYS: Extensive bilateral nodular opacities. Edema versus infiltrate Component of fluid overload is present with septal thickening. PLEURAL SPACE: No pleural fluid or thickening is present. HEART AND PERICARDIUM: The cardiac chambers are normal in size. No pericardial fluid or thickening is present. CORONARY VASCULAR CALCIFICATION: Present MEDIASTINUM AND ANGIE: No mediastinal mass is present. No enlarged lymph nodes are present. THORACIC VASCULATURE: No vascular abnormality is present. The visualized aorta is not aneurysmal. No filling defects within the visualized pulmonary vasculature. SOFT TISSUES: No significant soft tissue abnormality. OSSEOUS STRUCTURES: No acute findings. UPPER ABDOMEN: No pathologic process is present in the imaged portion of the upper abdomen. ADDITIONAL FINDINGS: None. IMPRESSION: 1. Extensive bilateral groundglass/nodular opacities. Edema versus inflammatory?i nfectious process. OTHER SIGNIFICANT FINDINGS: As detailed above. CT ABDOMEN AND PELVIS TECHNICAL: Contiguous axial imaging from the lung bases through pelvis after the uneventful intravenous administration of contrast. Additional coronal and sagittal reformatted imaging was performed. RADIATION OPTIMIZATION: CT was performed using one or more of the following dose reduction techniques: automated exposure control, adjustment of the mA and/or kV according to patient size, and/or use of iterative reconstruction techniques. Contrast Pharmaceutical: Iodinated Contrast Route of administration: Intravenous Enteric contrast: None COMPARISON: No comparison exams available at the time of dictation. FINDINGS: LOWER THORAX: Please see separate chest LIVER: Normal. GALLBLADDER/BILIARY TREE central biliary ductal dilatation SPLEEN: Normal. PANCREAS: 3 mm pancreatic hypodensity image #101. 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 ADRENAL GLANDS: Normal. KIDNEYS/URETERS/URINAR Y BLADDER advanced renal atrophy without obstruction GASTROINTESTINAL: Ileus. MESENTERY: Normal. PERITONEUM: No free fluid. No free air identified. REPRODUCTIVE: Unremarkable. AORTA: Non-aneurysmal. LYMPH NODES: No pathologically enlarged lymphadenopathy. SOFT TISSUES: No significant soft tissue abnormality. OSSEOUS STRUCTURES: No acute findings. Multiple fluid collections adjacent to the right hip anteriorly. Intramuscular chronic hematoma, abscess, or less likely cystic mass IMPRESSION: 1. Question mild ileus 2. Multiple fluid collections within the anterior right hip region. OTHER SIGNIFICANT FINDINGS: As detailed above. Report electronically signed by: Kev Santana MD on August 14, 09:01 PM EDT Read by: KEV SANTANA MD, MD Date: 08/14/2024 21:01 [facility] Comment on above: Order Comment: TRAUM A Please call CT department to schedule [phone] CTA Head and Neck w/wo contr jenna 08-14-2024 CTA Head and Neck w/wo contrast CTA OF THE NECK (CAROTIDS) (CPT 88531) TECHNICAL: CT angiography of the neck/carotid vasculature was performed with and without intravenous contrast including performance and review of MIP, 3D or surface shading reconstructed images. Contrast Pharmaceutical: mL Iodinated Contrast Route of administration: Intravenous Enteric contrast: None RADIATION OPTIMIZATION: Individualized dose optimization techniques were utilized for the performance of the above-mentioned procedure. Dose optimization techniques employed during this evaluation include: automated exposure control, patient adjusted mA and/or kV, and iterative reconstruction techniques. COMPARISON: No comparison exams available at the time of dictation. FINDINGS: The NASCET methodology was utilized for calculation of percent stenosis. AORTIC ARCH: Normal anatomic branch pattern of the origination of the great vessels. RIGHT COMMON CAROTID: There is no significant atheromatous disease of the right common carotid artery. No stenosis identified. There is no evidence for pseudoaneurysm or dissection. Atherosclerosis bulb RIGHT INTERNAL CAROTID ARTERY: There is no significant atheromatous disease of the right internal carotid artery. No stenosis identified. There is no evidence for pseudoaneurysm or dissection. Atherosclerosis LEFT COMMON CAROTID ARTERY: There is no significant atheromatous disease of the left common carotid artery. No stenosis identified. There is no evidence for pseudoaneurysm or dissection. LEFT INTERNAL CAROTID ARTERY: There is no significant atheromatous disease of the left internal carotid artery. No stenosis identified. There is no evidence for pseudoaneurysm or dissection. VETEBRAL ARTERIES: There is no significant ostial disease or stenosis of the bilateral vertebral artery origins. Codominant vertebral arteries are noted. There is no evidence for stenosis or dissection of the vertebral arteries. OTHER VASCULATURE: N/A LUNGS: Extensive bilateral opacities. OSSEOUS: Degenerative changes are noted in the partially imaged cervical spine. IMPRESSION: 1. No evidence of hemodynamically significant stenosis. Extensive bilateral pulmonary opacities CTA OF THE HEAD/BRAIN ([place]) (CPT 39001) TECHNICAL: CT angiography of the neck/carotid vasculature was performed with and without intravenous contrast including performance and review of MIP, 3D or surface shading reconstructed images. Contrast Pharmaceutical: mL Iodinated Contrast Route of administration: Intravenous Enteric contrast: None RADIATION OPTIMIZATION: Individualized dose optimization techniques were utilized for the performance of the above-mentioned procedure. Dose optimization techniques employed during this evaluation include: automated exposure control, patient adjusted mA and/or kV, and iterative reconstruction techniques COMPARISON: No comparison exams available at the time of dictation. FINDINGS: INTRACRANIAL INTERNAL CAROTID ARTERIES: Visualized intracranial ICA segments appear normal. ANTERIOR CEREBRAL ARTERY CIRCULATION: Visualized anterior communicating artery and anterior cerebral arteries appear normal. MIDDLE CEREBRAL ARTERY CIRCULATION: Visualized bilateral MCA M1 and M2 segments appear normal. POSTERIOR CEREBRAL ARTERY CIRCULATION: Visualized VA[employer]ER segments appear normal. 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 ADDITIONAL FINDINGS: None RECOMMENDATIONS: Conventional arteriography is a more sensitive evaluation for small aneurysms. If the patient's symptomology persists then consideration for further evaluation is warranted. IMPRESSION: 1. 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 Correlate with MRI Report electronically signed by: Kev Santana MD on August 14, 08:25 PM EDT Read by: KEV SANTANA MD, MD Date: 08/14/2024 20:25 [facility] Comment on above: Order Comment: CONTR AST PER RADIOLOGIST DISCRETION Please call CT department to schedule [phone] XR Chest 1 view-Mobileon XR Chest 1 view-Mobile CHEST COMPARISON: No comparison exams available at the time of dictation. FINDINGS: CARDIOVASCULAR: Cardiomediastinal silhouette is not enlarged. LUNGS: Diffuse opacities. Edema versus infiltrate. OSSEOUS STRUCTURES: Bony structures are intact. SOFT TISSUES: No foreign bodies. TUBES/LINES/IMPLANTABL E DEVICES: Endotracheal tube 3 cm by the liane IMPRESSION: Diffuse opacities. Report electronically signed by: Kev Santana MD on August 14, 08:19 PM EDT Read by: KEV SANTANA MD, MD Date: 08/14/2024 20:19 [facility] Basic metabolic 1998 panelon 07-17-2024 Anion gap [Moles/Vol] 21 mmol/L High 3 - 13 mmol/L [facility] Calcium [Mass/Vol] 8.5 mg/dL Low 8.8 - 10. 0 mg/dL [facility] Chloride [Moles/Vol] 96 mmol/L Low 98 - 10 7 mmol/L [facility] CO2 [Moles/Vol] 16 mmol/L Low 23 - 31 mmol/L [facility] Creatinine [Mass/Vol] 9.04 mg/dL High 0.57 - 1.11 mg/dL [facility] GFR/1.73 sq M.predicted (S/P/Bld) [Vol rate/Area] 4.2 mL/min Low - PINF [facility] Comment on above: Calculation based on the Chronic Kidney Disease Epidemiology Collaboration (CKD-EPI) equation refit without adjustment for race Glucose [Mass/Vol] 92 mg/dL 82 - 115 mg/dL [facility] Interpretation and review of laboratory results Abnormal [facility] Potassium [Moles/Vol] 5.6 mmol/L High 3.5 - 5.1 mmol/L [facility] Comment on above: Plasma potassium bhaskar ues may be up to 0.5 mmol/L lower than serum values. Sodium [Moles/Vol] 133 mmol/L Low 136 - 145 mmol/L [facility] Urea nitrogen [Mass/Vol] 84 mg/dL High 9 - 23 mg/dL [facility] CBC W Auto Differential pane l (Bld)on 07-17-2024 Basophils (Bld) [#/Vol] 0 10*3/uL 0.0 - 0.2 10*3/uL [facility] Basophils/100 WBC (Bld) 0.1 % 0.0 - 2.0 % [facility] Eosinophils (Bld) [#/Vol] 0 10*3/uL 0.0 - 0.5 10*3/uL [facility] Eosinophils/100 WBC (Bld) 0.1 % 0.0 - 6.0 % [facility] Erythrocyte distribution width (RBC) [Ratio] 16.3 % High 11.5 - 15.0 % [facility] Hematocrit (Bld) [Volume fraction] 34.9 % Low 35.0 - 47.0 % [facility] Hemoglobin (Bld) [Mass/Vol] 11.5 g/dL Low 11.7 - 16.0 g/dL [facility] Immature granulocytes (Bld) [#/Vol] 0.1 10*3/uL High NINF - 0.1 10*3/uL [facility] Immature granulocytes/100 WBC (Bld) 0.7 % 0.0 - 2.0 % [facility] Interpretation and review of laboratory results Abnormal [facility] Lymphocytes (Bld) [#/Vol] 0.9 10*3/uL Low 1.0 - 4.3 10*3/uL [facility] Lymphocytes/100 WBC (Bld) 12.2 % Low 15.0 - 45.0 % [facility] MCH (RBC) [Entitic mass] 31.8 pg 26.0 - 34.0 pg [facility] MCHC (RBC) [Mass/Vol] 33 % 30.5 - 36.0 % [facility] MCV (RBC) [Entitic vol] 96.4 fL 77.0 - 99.0 fL [facility] Monocytes (Bld) [#/Vol] 0.2 10*3/uL 0.0 - 0.9 10*3/uL [facility] Monocytes/100 WBC (Bld) 3.2 % Low 5.0 - 13.0 % [facility] Neutrophils (Bld) [#/Vol] 6.2 10*3/uL 1.8 - 7.5 10*3/uL [facility] Neutrophils/100 WBC (Bld) 83.7 % High 38.0 - 82.0 % [facility] Nucleated RBC/100 WBC (Bld) [Ratio] 0 % [facility] Platelet mean volume (Bld) [Entitic vol] 11.3 fL 9.0 - 12.7 fL [facility] Platelets (Bld) [#/Vol] 325 10*3/uL 140 - 440 10*3/uL [facility] RBC (Bld) [#/Vol] 3.62 10*6/uL Low 3.80 - 5.2 0 10*6/uL [facility] WBC (Bld) [#/Vol] 7.4 10*3/uL 3.6 - 10.7 10*3/uL [facility] Laboratory - Chemistry and C hemistry - challengeon 07-17-2024 Magnesium [Mass/Vol] 2.3 mg/dL 1.6 - 2 .6 mg/dL [facility] Magnesium [Mass/Vol]on 07-17 Interpretation and review of laboratory results Normal [facility] Higher values can be expected in females during menses. [facility] No Panel Informationon 07-17 2h Troponin HS (Serial 2nd Troponin) 82 ng/L High NINF - 14 ng/L [facility] Interpretation and review of laboratory results Abnormal [facility] Sinus rhythm Consider left ventricular hypertrophy Electronically Signed On 07-17-2024 20:17:37 EDT by Bryant Jameson CV Bryant Rooney MD - 07/17/2024 IMPRESSION: Sinus rhythm Consider left ventricular hypertrophy Electronically Signed On 07-17-2024 20:17:37 EDT by Bryant Jameson [facility] 2h Troponin HS (Serial 2nd Troponin) 33 ng/L High NINF - 14 ng/L [facility] Interpretation and review of laboratory results Abnormal [facility] No Panel InformationOrdered By: Bryant Jameson on 07-17-2024 P [place] 99 degrees [facility] Work Phone: UT Interval 119 ms [employer] Work Phone: QRS [place] 42 degrees [employer] Work Phone: QRSD Interval 82 ms [employer] Work Phone: [phone] QT Interval 391 ms [employer] Work Phone: QTC Interval 452 ms [employer] Phone: T Wave [place] 67 degrees [employer] Work Phone: [phone] [employer] Work Phone: Vital signsOrdered By: Bryant Jameson on 07-17-2024 Heart rate 80 /min bpm [employer] Phone: XR Chest Single viewon 07-17 No acute cardiopulmonary disease. Report Dictated on Electronically Signed By: Veronica Monsivais MD Electronically Signed Date/Time: 07/17/2024 3:00 PM EDT [facility] Patient Name: APOORVA GONZALEZ : 1950 Exam Date/Time: 07/17/2024 14:45 Procedure: XR CHEST 1 VIEW Ordering Provider: SANCHEZ COURTNEY Reason For Exam: CHEST PAIN PORTABLE CHEST X-RAY CLINICAL INDICATION: CHEST PAIN A portable frontal view of the chest was obtained. COMPARISON: 03/02/2024 FINDINGS: The cardiac silhouette is within normal limits. No focal consolidation is seen within the lungs. No pleural effusion or pneumothorax is identified. Degenerative changes of the thoracic spine are noted. [facility] Veronica Monsivais MD - 07/17/2024 Patient Name: APOORVA GONZALEZ : 1950 Exam Date/Time: 07/17/2024 14:45 Procedure: XR CHEST 1 VIEW Ordering Provider: SANCHEZ COURTNEY Reason For Exam: CHEST PAIN PORTABLE CHEST X-RAY CLINICAL INDICATION: CHEST PAIN A portable frontal view of the chest was obtained. COMPARISON: 03/02/2024 FINDINGS: The cardiac silhouette is within normal limits. No focal consolidation is seen within the lungs. No pleural effusion or pneumothorax is identified. Degenerative changes of the thoracic spine are noted. IMPRESSION: No acute cardiopulmonary disease. Report Dictated on Electronically Signed By: Veronica Monsivais MD Electronically Signed Date/Time: 07/17/2024 3:00 PM EDT [facility] Radiology Study observation (narrative) [facility] XR Chest Single viewOrdered By: Veronica Monsivais on 07-17-2024 [facility] CBC W Auto Differential pane l (Bld)on 06-29-2024 Basophils (Bld) [#/Vol] 0.1 10*3/uL 0.0 - 0.2 10*3/uL [facility] Basophils/100 WBC (Bld) 0.9 % 0.0 - 2.0 % [facility] Eosinophils (Bld) [#/Vol] 0.2 10*3/uL 0.0 - 0.5 10*3/uL [facility] Eosinophils/100 WBC (Bld) 1.6 % 0.0 - 6.0 % [facility] Erythrocyte distribution width (RBC) [Ratio] 16.1 % High 11.5 - 15.0 % [facility] Hematocrit (Bld) [Volume fraction] 24 % Low 35.0 - 47.0 % [facility] Hemoglobin (Bld) [Mass/Vol] 8 g/dL Low 11.7 - 16.0 g/dL [facility] Immature granulocytes (Bld) [#/Vol] 0 10*3/uL NINF - 0.1 10*3/uL [facility] Immature granulocytes/100 WBC (Bld) 0.4 % 0.0 - 2.0 % [facility] Interpretation and review of laboratory results Abnormal [facility] Lymphocytes (Bld) [#/Vol] 1.6 10*3/uL 1.0 - 4.3 10*3/uL [facility] Lymphocytes/100 WBC (Bld) 16 % 15.0 - 45.0 % [facility] MCH (RBC) [Entitic mass] 31.5 pg 26.0 - 34.0 pg [facility] MCHC (RBC) [Mass/Vol] 33.3 % 30.5 - 36.0 % [facility] MCV (RBC) [Entitic vol] 94.5 fL 77.0 - 99.0 fL [facility] Monocytes (Bld) [#/Vol] 1 10*3/uL High 0.0 - 0.9 10*3/uL [facility] Monocytes/100 WBC (Bld) 9.5 % 5.0 - 13.0 % [facility] Neutrophils (Bld) [#/Vol] 7.3 10*3/uL 1.8 - 7.5 10*3/uL [facility] Neutrophils/100 WBC (Bld) 71.6 % 38.0 - 82.0 % [facility] Nucleated RBC/100 WBC (Bld) [Ratio] 0 % [facility] Platelet mean volume (Bld) [Entitic vol] 10.4 fL 9.0 - 12.7 fL [facility] Platelets (Bld) [#/Vol] 370 10*3/uL 140 - 440 10*3/uL [facility] RBC (Bld) [#/Vol] 2.54 10*6/uL Low 3.80 - 5.2 0 10*6/uL [facility] WBC (Bld) [#/Vol] 10.2 10*3/uL 3.6 - 10.7 10*3/uL [facility] CT Head WO contraston 2024 No acute intracranial abnormalities or significant change from the prior study. Generalized brain parenchymal volume loss and moderate chronic small vessel ischemic changes bilaterally. Report Dictated on Electronically Signed By: Andrea Gonzales MD Electronically Signed Date/Time: 06/29/2024 7:49 AM [facility] [employer] SYSTEM Patient Name: APOORVA GONZALEZ : 1950 Exam Date/Time: 06/29/2024 07:26 Procedure: CT HEAD WO IV CONTRAST Ordering Provider: ESCAMILLA BRIANNA Reason For Exam: involuntary movements CT HEAD WITHOUT CONTRAST CLINICAL HISTORY: involuntary movements COMPARISON: 02/24/2022 TECHNIQUE: Helical CT of the brain without contrast. Dose reduction was employed with automated exposure control. FINDINGS: Acute Findings: No hemorrhage, mass, or infarct. Chronic Changes: Patchy and confluent foci of white matter hypoattenuation, most likely moderate chronic microvascular ischemic changes. Ventricles and sulci: Moderate generalized brain parenchymal volume loss with proportionate ventricular enlargement. Other: The skull, included paranasal sinuses and orbits are normal. [facility] Andrea Gonzales M D - 06/29/2024 Patient Name: [facility] : 1950 [id number] Exam Date/Time: 06/29/2024 07:26 Procedure: CT HEAD WO IV CONTRAST Ordering Provider: ESCAMILLA BRIANNA Reason For Exam: involuntary movements CT HEAD WITHOUT CONTRAST CLINICAL HISTORY: involuntary movements COMPARISON: 02/24/2022 TECHNIQUE: Helical CT of the brain without contrast. Dose reduction was employed with automated exposure control. FINDINGS: Acute Findings: No hemorrhage, mass, or infarct. Chronic Changes: Patchy and confluent foci of white matter hypoattenuation, most likely moderate chronic microvascular ischemic changes. Ventricles and sulci: Moderate generalized brain parenchymal volume loss with proportionate ventricular enlargement. Other: The skull, included paranasal sinuses and orbits are normal. IMPRESSION: No acute intracranial abnormalities or significant change from the prior study. Generalized brain parenchymal volume loss and moderate chronic small vessel ischemic changes bilaterally. Report Dictated on Electronically Signed By: Andrea Gonzales MD Electronically Signed Date/Time: 06/29/2024 7:49 AM EDT [facility] Radiology Study observation (narrative) [facility] CT Head WO contrastOrdered B y: Andrea Gonzales on 06-29-2024 [facility] Work Phone: Comprehensive metabolic 1998 panelon 06-29-2024 Albumin [Mass/Vol] 3.4 g/dL 3.4 - 4.8 g/dL [facility] ALP [Catalytic activity/Vol] 93 U/L 40 - 150 U/L [facility] ALT [Catalytic activity/Vol] 8 U/L NINF - 30 U/L [facility] Anion gap [Moles/Vol] 20 mmol/L High 3 - 13 mmol/L [facility] AST [Catalytic activity/Vol] 23 U/L NINF - 34 U/L [facility] Bilirubin [Mass/Vol] 0.6 mg/dL NINF - 1.2 mg/dL [facility] Calcium [Mass/Vol] 8.4 mg/dL Low 8.8 - 10. 0 mg/dL [facility] Chloride [Moles/Vol] 93 mmol/L Low 98 - 10 7 mmol/L [facility] CO2 [Moles/Vol] 24 mmol/L 23 - 31 mmol/L [facility] Creatinine [Mass/Vol] 11.11 mg/dL High 0.57 - 1.11 mg/dL [facility] GFR/1.73 sq M.predicted (S/P/Bld) [Vol rate/Area] 3.3 mL/min Low - PINF [facility] Comment on above: Calculation based on the Chronic Kidney Disease Epidemiology Collaboration (CKD-EPI) equation refit without adjustment for race Glucose [Mass/Vol] 89 mg/dL 82 - 115 mg/dL [facility] Potassium [Moles/Vol] 6 mmol/L High 3.5 - 5.1 mmol/L [facility] Comment on above: Plasma potassium bhaskar ues may be up to 0.5 mmol/L lower than serum values. Protein [Mass/Vol] 7.1 g/dL 6.4 - 8.3 g/dL [facility] Sodium [Moles/Vol] 137 mmol/L 136 - 145 mmol/L [facility] Urea nitrogen [Mass/Vol] 96 mg/dL High 9 - 23 mg/dL [facility] Free T4 [Mass/Vol]on 025 Free T4 Dialysis [Mass/Vol] 1.4 ng/dL 0.70 - 1.48 ng/dL [facility] Laboratory - Chemistry and C hemistry - challengeon 06-29-2024 TSH Qn 0.95 m[IU]/L [facility] Magnesium [Mass/Vol] 2.9 mg/dL High 1.6 - 2 .6 mg/dL [facility] Ammonia (P) [Moles/Vol] 22 umol/L 18 - 72 umol/L [facility] Magnesium [Mass/Vol]on 06-29 Higher values can be expected in females during menses. [facility] No Panel Informationon 06-29 Interpretation and review of laboratory results Normal [facility] Interpretation and review of laboratory results Abnormal [facility] Interpretation and review of laboratory results Normal [facility] P [place] 80 degrees [facility] UT Interval 124 ms [facility] QRS [place] 42 degrees [facility] QRSD Interval 108 ms [facility] QT Interval 422 ms [facility] QTC Interval 497 ms [facility] T Wave [place] 68 degrees [facility] Sinus rhythm Incomplete left bundle branch block Probable left ventricular hypertrophy Anterior Q waves, possibly due to LVH Electronically Signed On 06-29-2024 07:59:25 EDT by Veronica Abebe CV Veronica Sharma MD - 06/29/2024 IMPRESSION: Sinus rhythm Incomplete left bundle branch block Probable left ventricular hypertrophy Anterior Q waves, possibly due to LVH Electronically Signed On 06-29-2024 07:59:25 EDT by Veronica Abebe [facility] Vital signson 06-29-2024 Heart rate 83 /min bpm [facility] DBT Breast - bilateral scree ningon 06-09-2024 No mammographic evidence of malignancy. ASSESSMENT: Category 1 Negative RECOMMENDATION: Routine screening mammogram in 1 year. Bilateral CANCER RISK ASSESSMENT: This risk assessment is based on patient provided information collected in a risk survey taken at the time of this examination. LIFETIME BREAST CANCER RISK: Susan 8: 2.92% - If greater than or equal to 20%, consider annual mammogram and annual screening Breast MRI or follow up in high risk clinic. Is the patient at elevated risk based on the HBOC criteria? No (Hereditary Breast and Ovarian Cancer) - If Yes, consider genetic counseling and testing with high risk follow up Is the patient at elevated risk based on the Zhang Syndrome criteria? No - If Yes, consider genetic counseling and testing with high risk follow up. Report Dictated on Electronically Signed By: Nalini Márquez MD Electronically Signed Date/Time: 06/09/2024 2:24 PM [facility] Patient Name: APOORVA GONZALEZ : 1950 Exam Date/Time: 06/09/2024 13:19 Procedure: BI MAMMOGRAM SCREENING TOMOSYNTHESIS BILATERAL Ordering Provider: SPAIN ABIGAIL Reason For Exam: This exam was performed at [facility] at [address] [place] [facility] [id number] PATIENT CANCER HISTORY: No Personal History of Cancer FAMILY CANCER HISTORY: Cousin Breast Cancer age 32 Brother Prostate Cancer age 69 Maternal Aunt Stomach Cancer age 70 Image views: 2D Bilateral CC and MLO views were acquired. 3D Bilateral CC and MLO views were acquired. Images were reviewed with CAD. Markings on images: BB's = Nipples; skin lesions Open [place] = Palpable Line = Scar COMPARISON: 01/12/2023 and 11/28/2020 TISSUE DENSITY: BIRADS C - The breasts are heterogeneously dense, which may obscure small masses. FINDINGS: No suspicious masses, architectural distortions or suspiciously clustered microcalcifications are identified. There is no evidence of skin thickening or nipple retraction. There are no significant changes when compared with prior studies. [facility] Nalini Márquez MD - 06/09/2024 Patient Name: APOORVA GONZALEZ : 1950 Exam Date/Time: 06/09/2024 13:19 Procedure: BI MAMMOGRAM SCREENING TOMOSYNTHESIS BILATERAL Ordering Provider: SPAIN ABIGAIL Reason For Exam: This exam was performed at [facility] at [address] [place] [facility] [id number] PATIENT CANCER HISTORY: No Personal History of Cancer FAMILY CANCER HISTORY: Cousin Breast Cancer age 32 Brother Prostate Cancer age 69 Maternal Aunt Stomach Cancer age 70 Image views: 2D Bilateral CC and MLO views were acquired. 3D Bilateral CC and MLO views were acquired. Images were reviewed with CAD. Markings on images: BB's = Nipples; skin lesions Open [place] = Palpable Line = Scar COMPARISON: 01/12/2023 and 11/28/2020 TISSUE DENSITY: BIRADS C - The breasts are heterogeneously dense, which may obscure small masses. FINDINGS: No suspicious masses, architectural distortions or suspiciously clustered microcalcifications are identified. There is no evidence of skin thickening or nipple retraction. There are no significant changes when compared with prior studies. IMPRESSION: No mammographic evidence of malignancy. ASSESSMENT: Category 1 Negative RECOMMENDATION: Routine screening mammogram in 1 year. Bilateral CANCER RISK ASSESSMENT: This risk assessment is based on patient provided information collected in a risk survey taken at the time of this examination. LIFETIME BREAST CANCER RISK: Susan 8: 2.92% - If greater than or equal to 20%, consider annual mammogram and annual screening Breast MRI or follow up in high risk clinic. Is the patient at elevated risk based on the HBOC criteria? No (Hereditary Breast and Ovarian Cancer) - If Yes, consider genetic counseling and testing with high risk follow up Is the patient at elevated risk based on the Zhang Syndrome criteria? No - If Yes, consider genetic counseling and testing with high risk follow up. Report Dictated on Electronically Signed By: Nalini Márquez MD Electronically Signed Date/Time: 06/09/2024 2:24 PM EST [facility] Radiology Study observation (narrative) [facility] DBT Breast - bilateral scree ningOrdered By: Nalini Márquez on 06-09-2024 [id number] Work Phone: Basic metabolic 1998 panelOr dered By: Yonatan Cornell on 03-03-2024 Anion gap [Moles/Vol] 12 mmol/L 3 - 13 mmol/L [facility] Calcium [Mass/Vol] 8.3 mg/dL Low 8.4 - 10. 4 mg/dL [facility] Chloride [Moles/Vol] 98 mmol/L 98 - 10 7 mmol/L [facility] CO2 [Moles/Vol] 28 mmol/L 22 - 30 mmol/L [facility] Creatinine [Mass/Vol] 8.03 mg/dL High 0.52 - 1.04 mg/dL [facility] GFR/1.73 sq M.predicted (S/P/Bld) [Vol rate/Area] 4.9 mL/min Low - PINF [facility] Comment on above: Calculation based on the Chronic Kidney Disease Epidemiology Collaboration (CKD-EPI) equation refit without adjustment for race Glucose [Mass/Vol] 91 mg/dL 70 - 100 mg/dL [facility] Interpretation and review of laboratory results Abnormal [facility] Potassium [Moles/Vol] 5 mmol/L 3.5 - 5.1 mmol/L [facility] Sodium [Moles/Vol] 138 mmol/L 135 - 145 mmol/L [facility] Urea nitrogen [Mass/Vol] 42 mg/dL High 7 - 17 mg/dL [facility] CBC W Auto Differential pane l (Bld)on 03-03-2024 Basophils (Bld) [#/Vol] 0.1 10*3/uL 0.0 - 0.2 10*3/uL [facility] Basophils/100 WBC (Bld) 1.1 % 0.0 - 2.0 % [facility] Eosinophils (Bld) [#/Vol] 0.3 10*3/uL 0.0 - 0.5 10*3/uL [facility] Eosinophils/100 WBC (Bld) 4 % 0.0 - 6.0 % [facility] Erythrocyte distribution width (RBC) [Ratio] 16.8 % High 11.5 - 15.0 % [facility] Hematocrit (Bld) [Volume fraction] 32.8 % Low 35.0 - 47.0 % [facility] Hemoglobin (Bld) [Mass/Vol] 10.2 g/dL Low 11.7 - 16.0 g/dL [facility] Immature granulocytes (Bld) [#/Vol] 0 10*3/uL NINF - 0.1 10*3/uL [facility] Immature granulocytes/100 WBC (Bld) 0.4 % 0.0 - 2.0 % [facility] Interpretation and review of laboratory results Abnormal [facility] Lymphocytes (Bld) [#/Vol] 1.9 10*3/uL 1.0 - 4.3 10*3/uL [facility] Lymphocytes/100 WBC (Bld) 24.8 % 15.0 - 45.0 % [facility] MCH (RBC) [Entitic mass] 30.9 pg 26.0 - 34.0 pg [facility] MCHC (RBC) [Mass/Vol] 31.1 % 30.5 - 36.0 % [facility] MCV (RBC) [Entitic vol] 99.4 fL High 77.0 - 99.0 fL [facility] Monocytes (Bld) [#/Vol] 0.6 10*3/uL 0.0 - 0.9 10*3/uL [facility] Monocytes/100 WBC (Bld) 7.8 % 5.0 - 13.0 % [facility] Neutrophils (Bld) [#/Vol] 4.7 10*3/uL 1.8 - 7.5 10*3/uL [facility] Neutrophils/100 WBC (Bld) 61.9 % 38.0 - 82.0 % [facility] Nucleated RBC/100 WBC (Bld) [Ratio] 0 % [facility] Platelet mean volume (Bld) [Entitic vol] 10.4 fL 9.0 - 12.7 fL [facility] Platelets (Bld) [#/Vol] 409 10*3/uL 140 - 440 10*3/uL [facility] RBC (Bld) [#/Vol] 3.3 10*6/uL Low 3.80 - 5.2 0 10*6/uL [facility] WBC (Bld) [#/Vol] 7.5 10*3/uL 3.6 - 10.7 10*3/uL [facility] Laboratory - Chemistry and C hemistry - challengeon 03-03-2024 Glucose [Mass/Vol] 74 mg/dL 70 - 100 mg/dL [facility] Glucose [Mass/Vol] 90 mg/dL 70 - 100 mg/dL [facility] No Panel Informationon 03-03 Interpretation and review of laboratory results Normal [facility] Performed by: [facility], [address] [place] [address] CLIA ID: [id number] [facility] Interpretation and review of laboratory results Normal [facility] Performed by: [facility], [address] [place] [address] CLIA ID: [id number] [facility] Basic metabolic 1998 panelOr dered By: Yogi Stanley on 03-02-2024 Anion gap [Moles/Vol] 20 mmol/L High 3 - 13 mmol/L [facility] Calcium [Mass/Vol] 8.8 mg/dL 8.4 - 10. 4 mg/dL [facility] Chloride [Moles/Vol] 97 mmol/L Low 98 - 10 7 mmol/L [facility] CO2 [Moles/Vol] 20 mmol/L Low 22 - 30 mmol/L [facility] Creatinine [Mass/Vol] 11.21 mg/dL High 0.52 - 1.04 mg/dL [facility] GFR/1.73 sq M.predicted (S/P/Bld) [Vol rate/Area] 3.3 mL/min Low - PINF [facility] Comment on above: Calculation based on the Chronic Kidney Disease Epidemiology Collaboration (CKD-EPI) equation refit without adjustment for race Glucose [Mass/Vol] 110 mg/dL High 70 - 100 mg/dL [facility] Interpretation and review of laboratory results Abnormal [facility] Potassium [Moles/Vol] 6.4 mmol/L Critically high 3.5 - 5.1 mmol/L [facility] Sodium [Moles/Vol] 137 mmol/L 135 - 145 mmol/L [facility] Urea nitrogen [Mass/Vol] 58 mg/dL High 7 - 17 mg/dL [facility] CBC W Auto Differential pane l (Bld)on 03-02-2024 Basophils (Bld) [#/Vol] 0.1 10*3/uL 0.0 - 0.2 10*3/uL [facility] Basophils/100 WBC (Bld) 1.1 % 0.0 - 2.0 % [facility] Eosinophils (Bld) [#/Vol] 0.2 10*3/uL 0.0 - 0.5 10*3/uL [facility] Eosinophils/100 WBC (Bld) 2.1 % 0.0 - 6.0 % [facility] Erythrocyte distribution width (RBC) [Ratio] 16.6 % High 11.5 - 15.0 % [facility] Hematocrit (Bld) [Volume fraction] 32.3 % Low 35.0 - 47.0 % [facility] Hemoglobin (Bld) [Mass/Vol] 10.2 g/dL Low 11.7 - 16.0 g/dL [facility] Immature granulocytes (Bld) [#/Vol] 0 10*3/uL NINF - 0.1 10*3/uL [facility] Immature granulocytes/100 WBC (Bld) 0.4 % 0.0 - 2.0 % [facility] Lymphocytes (Bld) [#/Vol] 1.2 10*3/uL 1.0 - 4.3 10*3/uL [facility] Lymphocytes/100 WBC (Bld) 14.4 % Low 15.0 - 45.0 % [facility] MCH (RBC) [Entitic mass] 30.6 pg 26.0 - 34.0 pg [facility] MCHC (RBC) [Mass/Vol] 31.6 % 30.5 - 36.0 % [facility] MCV (RBC) [Entitic vol] 97 fL 77.0 - 99.0 fL [facility] Monocytes (Bld) [#/Vol] 0.5 10*3/uL 0.0 - 0.9 10*3/uL [facility] Monocytes/100 WBC (Bld) 5.4 % 5.0 - 13.0 % [facility] Neutrophils (Bld) [#/Vol] 6.5 10*3/uL 1.8 - 7.5 10*3/uL [facility] Neutrophils/100 WBC (Bld) 76.6 % 38.0 - 82.0 % [facility] Nucleated RBC/100 WBC (Bld) [Ratio] 0 % [facility] Platelet mean volume (Bld) [Entitic vol] 10.3 fL 9.0 - 12.7 fL [facility] Platelets (Bld) [#/Vol] 406 10*3/uL 140 - 440 10*3/uL [facility] RBC (Bld) [#/Vol] 3.33 10*6/uL Low 3.80 - 5.2 0 10*6/uL [facility] WBC (Bld) [#/Vol] 8.5 10*3/uL 3.6 - 10.7 10*3/uL [facility] Laboratory - Chemistry and C hemistry - challengeon 03-02-2024 Glucose [Mass/Vol] 124 mg/dL High 70 - 100 mg/dL [facility] Glucose [Mass/Vol] 126 mg/dL High 70 - 100 mg/dL [facility] Glucose [Mass/Vol] 77 mg/dL 70 - 100 mg/dL [facility] Troponin I.cardiac [Mass/Vol] 0.029 ng/mL NINF - 0.034 ng/mL [facility] Troponin I.cardiac [Mass/Vol] 0.029 ng/mL NINF - 0.034 ng/mL [facility] Glucose [Mass/Vol] 88 mg/dL 70 - 100 mg/dL [facility] Glucose [Mass/Vol] 57 mg/dL Low 70 - 100 mg/dL [facility] Glucose [Mass/Vol] 239 mg/dL High 70 - 100 mg/dL [facility] Glucose [Mass/Vol] 88 mg/dL 70 - 100 mg/dL [facility] Troponin I.cardiac [Mass/Vol] 0.028 ng/mL NINF - 0.034 ng/mL [facility] Laboratory - Chemistry and C hemistry - challengeOrdered By: Christiano Weinberg on 03-02-2024 Base excess Calc (BldV) [Moles/Vol] -0.1000 mmol/L -3.0 - 3.0 mmol/L [facility] CO2 (BldV) [Partial pressure] 36 mm[Hg] Low [facility] CO2 [Moles/Vol] 24.8 mmol/L 24.0 - 28.0 mmol/L [facility] HCO3 (Bld) [Moles/Vol] 23.7 mmol/L 23.0 - 27.0 mmol/L [facility] Oxygen (BldV) [Partial pressure] 45.7 mm[Hg] mm Hg [facility] pH (BldV) 7.437 [pH] High 7.330 - 7.430 [facility] Laboratory - Hematology and Cell countsOrdered By: Christiano Weinberg on 03-02-2024 Hemoglobin (Bld) [Mass/Vol] 12.1 g/dL Screen only [facility] Natriuretic peptide B [Mass/ Vol]on 03-02-2024 Interpretation and review of laboratory results Abnormal [facility] Natriuretic peptide B (Bld) [Mass/Vol] 45029 pg/mL High NINF - 125 pg/mL [facility] No Panel Informationon 03-02 Interpretation and review of laboratory results Abnormal [facility] Performed by: [facility], [address] [place] [id number] CLIA ID: [id number] [facility] Interpretation and review of laboratory results Abnormal [facility] Performed by: [facility], [address] [place] [id number] CLIA ID: [id number] [facility] Interpretation and review of laboratory results Normal [facility] Performed by: [facility], [address] [place] [id number] CLIA ID: [id number] [facility] Interpretation and review of laboratory results Normal [facility]formed by[facility], [address] [place] [id number] CLIA ID: [id number] [facility] Interpretation and review of laboratory results Abnormal [facility]formed by: [facility], [address] [facility] [place] [address] CLIA ID: [id number] [facility] Interpretation and review of laboratory results Abnormal [facility] Performed by: [facility], [address] [facility] [address] CLIA ID: [id number] [facility] P [place] 65 degrees [facility] UT Interval 129 ms [facility] QRS [place] 3 degrees [facility] QRSD Interval 91 ms [facility] QT Interval 384 ms [facility] QTC Interval 464 ms [facility] T Wave [place] 58 degrees [facility] Sinus rhythm Minimal ST elevation, anterior leads Normal axis Electronically Signed On 03-02-2024 07:17:20 EST by Marcus Sutherland DO - 03/02/2024 IMPRESSION: Sinus rhythm Minimal ST elevation, anterior leads Normal axis Electronically Signed On 03-02-2024 07:17:20 EST by Marcus Cordonquentin [facility] P [place] 58 degrees [facility] UT Interval 123 ms [facility] QRS [place] 0 degrees [facility] QRSD Interval 96 ms [facility] QT Interval 404 ms [facility] QTC Interval 483 ms [facility] T Wave [place] 51 degrees [facility] Sinus rhythm Probable left atrial enlargement Normal axis Electronically Signed On 03-02-2024 07:16:24 EST by Marcus Sutherland DO - 03/02/2024 IMPRESSION: Sinus rhythm Probable left atrial enlargement Normal axis Electronically Signed On 03-02-2024 07:16:24 EST by Marcus [facility] Interpretation and review of laboratory results Normal [facility]formed [facility]: [facility], [address] [place] [id number] CLIA ID: [id number] [facility] Interpretation and review of laboratory results Abnormal [facility] No Panel InformationOrdered By: Christiano Weinberg on 03-02-2024 Source Of Oxygen 2L [facility] Assessment of oxygenation is best done with an arterial blood gas determination. Reference ranges for pO2, bicarbonate, and base excess are for mixed venous blood. Specimens drawn from a peripheral vein will often have higher values. [facility] Troponin I.cardiac [Mass/Vol ]on 03-02-2024 Interpretation and review of laboratory results Normal [facility] Patients with high levels of Biotin oral intake (ie >5 mg/day) may have falsely decreased Troponin levels. [facility] Interpretation and review of laboratory results Normal [facility] Patients with high levels of Biotin oral intake (ie >5 mg/day) may have falsely decreased Troponin levels. [facility] Interpretation and review of laboratory results Normal [facility] Patients with high levels of Biotin oral intake (ie >5 mg/day) may have falsely decreased Troponin levels. [facility] Vital signson 03-02-2024 Heart rate 88 /min bpm [facility] Heart rate 86 /min bpm [facility] Vital signsOrdered By: Christiano Weinberg on 03-02-2024 Oxygen saturation in Venous blood 73.5 % [facility] XR Chest Single viewon 03-02 1. Worsening bibasil ar infiltrates and effusions. 2. Prominence of the central pulmonary vasculature consistent with moderate to severe congestive heart failure/fluid overload. Report Dictated on Electronically Signed By: Honorio Henson MD Electronically Signed Date/Time: 03/02/2024 4:43 AM EST [employer] SYSTEM Patient Name: APOORVA GONZALEZ : 1950 Exam Date/Time: 03/02/2024 04:24 Procedure: XR CHEST 1 VIEW Ordering Provider: LAGUNA JOHN Reason For Exam: DYSPNEA CLINICAL INFORMATION: Worsening shortness of breath. Hypoxia. Portable view of the chest at 0420 hours is provided and compared to a previous study dated February 19, 2024. FINDINGS: The heart size is normal. Significant bibasilar infiltrates and effusions are noted. These have progressed mildly. There is significant prominence of the interstitium and central pulmonary vasculature. [facility] [employer] [facility] Honorio Henson MD - 03/02/2024 Patient Name: [facility] : 1950 [id number] Exam Date/Time: 03/02/2024 04:24 Procedure: XR CHEST 1 VIEW Ordering Provider: LAGUNA JOHN Reason For Exam: DYSPNEA CLINICAL INFORMATION: Worsening shortness of breath. Hypoxia. Portable view of the chest at 0420 hours is provided and compared to a previous study dated February 19, 2024. FINDINGS: The heart size is normal. Significant bibasilar infiltrates and effusions are noted. These have progressed mildly. There is significant prominence of the interstitium and central pulmonary vasculature. IMPRESSION: 1. Worsening bibasilar infiltrates and effusions. 2. Prominence of the central pulmonary vasculature consistent with moderate to severe congestive heart failure/fluid overload. Report Dictated on Electronically Signed By: Honorio Henson MD Electronically Signed Date/Time: 03/02/2024 4:43 AM EST [facility] Study observation (narrative) [facility] XR Chest Single viewOrdered By: Honorio Henson on 03-02-2024 [employer] Work Phone: CBC W Auto Differential pane l (Bld)Ordered By: Andre Ervin on 02-20-2024 Basophils (Bld) [#/Vol] 0.1 10*3/uL 0.0 - 0.2 10*3/uL [facility] Basophils/100 WBC (Bld) 1.1 % 0.0 - 2.0 % [facility] Eosinophils (Bld) [#/Vol] 0.5 10*3/uL 0.0 - 0.5 10*3/uL [facility] Eosinophils/100 WBC (Bld) 4.6 % 0.0 - 6.0 % [facility] Erythrocyte distribution width (RBC) [Ratio] 17.5 % High 11.5 - 15.0 % [facility] Hematocrit (Bld) [Volume fraction] 27.4 % Low 35.0 - 47.0 % [facility] Hemoglobin (Bld) [Mass/Vol] 8.4 g/dL Low 11.7 - 16.0 g/dL [facility] Immature granulocytes (Bld) [#/Vol] 0.1 10*3/uL High NINF - 0.1 10*3/uL [facility] Immature granulocytes/100 WBC (Bld) 0.4 % 0.0 - 2.0 % [facility] Interpretation and review of laboratory results Abnormal [facility] Lymphocytes (Bld) [#/Vol] 2.5 10*3/uL 1.0 - 4.3 10*3/uL [facility] Lymphocytes/100 WBC (Bld) 22.7 % 15.0 - 45.0 % [facility] MCH (RBC) [Entitic mass] 30.8 pg 26.0 - 34.0 pg [facility] MCHC (RBC) [Mass/Vol] 30.7 % 30.5 - 36.0 % [facility] MCV (RBC) [Entitic vol] 100.4 fL High 77.0 - 99.0 fL [facility] Monocytes (Bld) [#/Vol] 0.9 10*3/uL 0.0 - 0.9 10*3/uL [facility] Monocytes/100 WBC (Bld) 8 % 5.0 - 13.0 % [facility] Neutrophils (Bld) [#/Vol] 7.1 10*3/uL 1.8 - 7.5 10*3/uL [facility] Neutrophils/100 WBC (Bld) 63.2 % 38.0 - 82.0 % [facility] Nucleated RBC/100 WBC (Bld) [Ratio] 0 % [facility] Platelet mean volume (Bld) [Entitic vol] 10.1 fL 9.0 - 12.7 fL [facility] Platelets (Bld) [#/Vol] 405 10*3/uL 140 - 440 10*3/uL [facility] RBC (Bld) [#/Vol] 2.73 10*6/uL Low 3.80 - 5.2 0 10*6/uL [facility] WBC (Bld) [#/Vol] 11.2 10*3/uL High 3.6 - 10.7 10*3/uL [facility] Comprehensive metabolic 1998 panelOrdered By: Gracie Wooten on 02-20-2024 Albumin [Mass/Vol] 3.4 g/dL Low 3.5 - 5.0 g/dL [facility] ALP [Catalytic activity/Vol] 136 U/L High 38 - 126 U/L [facility] ALT [Catalytic activity/Vol] 35 U/L High 0 - 34 U/L [facility] Anion gap [Moles/Vol] 11 mmol/L 3 - 13 mmol/L [facility] AST [Catalytic activity/Vol] 41 U/L 15 - 46 U/L [facility] Bilirubin [Mass/Vol] 0.7 mg/dL 0.2 - 1 .3 mg/dL [facility] Calcium [Mass/Vol] 8.2 mg/dL Low 8.4 - 10. 4 mg/dL [facility] Chloride [Moles/Vol] 97 mmol/L Low 98 - 10 7 mmol/L [facility] CO2 [Moles/Vol] 27 mmol/L 22 - 30 mmol/L [facility] Creatinine [Mass/Vol] 4.37 mg/dL High 0.52 - 1.04 mg/dL [facility] GFR/1.73 sq M.predicted (S/P/Bld) [Vol rate/Area] 10.2 mL/min Low - PINF [facility] Comment on above: Calculation based on the Chronic Kidney Disease Epidemiology Collaboration (CKD-EPI) equation refit without adjustment for race Glucose [Mass/Vol] 91 mg/dL 70 - 100 mg/dL [facility] Interpretation and review of laboratory results Abnormal [facility] Potassium [Moles/Vol] 3.8 mmol/L 3.5 - 5.1 mmol/L [facility] Protein [Mass/Vol] 6.2 g/dL Low 6.3 - 8.2 g/dL [facility] Sodium [Moles/Vol] 135 mmol/L 135 - 145 mmol/L [facility] Urea nitrogen [Mass/Vol] 29 mg/dL High 7 - 17 mg/dL [facility] - Chemistry and C hemistry - challengeon 02-20-2024 Procalcitonin [Mass/Vol] 0.56 ng/mL High 0.00 - 0.09 ng/mL [facility] Procalcitonin [Mass/Vol]on 04-21-2023 Interpretation and review of laboratory results Abnormal [facility] PCT <0.50 = Low risk of severe sepsis and/or septic shock. PCT >2.00 = High risk of severe sepsis and/or septic shock. [facility] CBC W Auto Differential pane l (Bld)Ordered By: Beatriz Morales on 02-19-2024 Basophils (Bld) [#/Vol] 0.2 10*3/uL 0.0 - 0.2 10*3/uL [facility] Basophils/100 WBC (Bld) 1.3 % 0.0 - 2.0 % [facility] Eosinophils (Bld) [#/Vol] 0.6 10*3/uL High 0.0 - 0.5 10*3/uL [facility] Eosinophils/100 WBC (Bld) 4.9 % 0.0 - 6.0 % [facility] Erythrocyte distribution width (RBC) [Ratio] 18 % High 11.5 - 15.0 % [facility] Hematocrit (Bld) [Volume fraction] 30.6 % Low 35.0 - 47.0 % [facility] Hemoglobin (Bld) [Mass/Vol] 9.2 g/dL Low 11.7 - 16.0 g/dL [facility] Immature granulocytes (Bld) [#/Vol] 0.1 10*3/uL High NINF - 0.1 10*3/uL [facility] Immature granulocytes/100 WBC (Bld) 0.4 % 0.0 - 2.0 % [facility] Interpretation and review of laboratory results Abnormal [facility] Lymphocytes (Bld) [#/Vol] 2 10*3/uL 1.0 - 4.3 10*3/uL [facility] Lymphocytes/100 WBC (Bld) 17.1 % 15.0 - 45.0 % [facility] MCH (RBC) [Entitic mass] 30.7 pg 26.0 - 34.0 pg [facility] MCHC (RBC) [Mass/Vol] 30.1 % Low 30.5 - 36.0 % [facility] MCV (RBC) [Entitic vol] 102 fL High 77.0 - 99.0 fL [facility] Monocytes (Bld) [#/Vol] 0.7 10*3/uL 0.0 - 0.9 10*3/uL [facility] Monocytes/100 WBC (Bld) 6.3 % 5.0 - 13.0 % [facility] Neutrophils (Bld) [#/Vol] 8 10*3/uL High 1.8 - 7.5 10*3/uL [facility] Neutrophils/100 WBC (Bld) 70 % 38.0 - 82.0 % [facility] Nucleated RBC/100 WBC (Bld) [Ratio] 0.2 % [facility] Platelet mean volume (Bld) [Entitic vol] 10.4 fL 9.0 - 12.7 fL [facility] Platelets (Bld) [#/Vol] 472 10*3/uL High 140 - 440 10*3/uL [facility] RBC (Bld) [#/Vol] 3 10*6/uL Low 3.80 - 5.2 0 10*6/uL [facility] WBC (Bld) [#/Vol] 11.5 10*3/uL High 3.6 - 10.7 10*3/uL [facility] Comprehensive metabolic 1998 panelOrdered By: Cathy Salinas on 02-19-2024 Albumin [Mass/Vol] 3.7 g/dL 3.5 - 5.0 g/dL [facility] ALP [Catalytic activity/Vol] 122 U/L 38 - 126 U/L [facility] ALT [Catalytic activity/Vol] 42 U/L High 0 - 34 U/L [facility] Anion gap [Moles/Vol] 11 mmol/L 3 - 13 mmol/L [facility] AST [Catalytic activity/Vol] 76 U/L High 15 - 46 U/L [facility] Bilirubin [Mass/Vol] 1.1 mg/dL 0.2 - 1 .3 mg/dL [facility] Calcium [Mass/Vol] 8.5 mg/dL 8.4 - 10. 4 mg/dL [facility] Chloride [Moles/Vol] 95 mmol/L Low 98 - 10 7 mmol/L [facility] CO2 [Moles/Vol] 28 mmol/L 22 - 30 mmol/L [facility] Creatinine [Mass/Vol] 3.12 mg/dL High 0.52 - 1.04 mg/dL [facility] GFR/1.73 sq M.predicted (S/P/Bld) [Vol rate/Area] 15.2 mL/min Low - PINF [facility] Comment on above: Calculation based on the Chronic Kidney Disease Epidemiology Collaboration (CKD-EPI) equation refit without adjustment for race Glucose [Mass/Vol] 104 mg/dL High 70 - 100 mg/dL [facility] Interpretation and review of laboratory results Abnormal [facility] Potassium [Moles/Vol] 4.1 mmol/L 3.5 - 5.1 mmol/L [facility] Protein [Mass/Vol] 6.9 g/dL 6.3 - 8.2 g/dL [facility] Sodium [Moles/Vol] 134 mmol/L Low 135 - 145 mmol/L [facility] Urea nitrogen [Mass/Vol] 18 mg/dL High 7 - 17 mg/dL [facility] AST, Potassium, Alkaline Phosphatase-Slightly Hemolyzed. Interpret with caution. [facility] Comprehensive metabolic 1998 panelon 02-19-2024 Albumin [Mass/Vol] 4 g/dL 3.5 - 5.0 g/dL [facility] ALP [Catalytic activity/Vol] 131 U/L High 38 - 126 U/L [facility] ALT [Catalytic activity/Vol] 50 U/L High 0 - 34 U/L [facility] Anion gap [Moles/Vol] 18 mmol/L High 3 - 13 mmol/L [facility] AST [Catalytic activity/Vol] 105 U/L High 15 - 46 U/L [facility] Bilirubin [Mass/Vol] 1.1 mg/dL 0.2 - 1 .3 mg/dL [facility] Calcium [Mass/Vol] 8.2 mg/dL Low 8.4 - 10. 4 mg/dL [facility] Chloride [Moles/Vol] 95 mmol/L Low 98 - 10 7 mmol/L [facility] CO2 [Moles/Vol] 21 mmol/L Low 22 - 30 mmol/L [facility] Creatinine [Mass/Vol] 6.67 mg/dL High 0.52 - 1.04 mg/dL [facility] GFR/1.73 sq M.predicted (S/P/Bld) [Vol rate/Area] 6.1 mL/min Low - PINF [facility] Comment on above: Calculation based on the Chronic Kidney Disease Epidemiology Collaboration (CKD-EPI) equation refit without adjustment for race Glucose [Mass/Vol] 193 mg/dL High 70 - 100 mg/dL [facility] Interpretation and review of laboratory results Abnormal [facility] Potassium [Moles/Vol] 5.2 mmol/L High 3.5 - 5.1 mmol/L [facility] Protein [Mass/Vol] 7.3 g/dL 6.3 - 8.2 g/dL [facility] Sodium [Moles/Vol] 134 mmol/L Low 135 - 145 mmol/L [facility] Urea nitrogen [Mass/Vol] 44 mg/dL High 7 - 17 mg/dL [facility] Slightly Hemolyzed. Interpret Potassium, Total Protein, Albumin, Alkaline Phosphatase, and AST with caution. [facility] - Chemistry and C hemistry - challengeon 02-19-2024 Troponin I.cardiac [Mass/Vol] 0.033 ng/mL [facility]/mL [facility] Troponin I.cardiac [Mass/Vol] 0.042 ng/mL High NINF - 0.034 ng/mL [facility] Procalcitonin [Mass/Vol] 0.48 ng/mL High 0.00 - 0.09 ng/mL [facility] Lactate [Moles/Vol] 1.3 mmol/L 0.7 - 2. 0 mmol/L [facility] Troponin I.cardiac [Mass/Vol] 0.034 ng/mL High [facility] - 0.[facility] ng/mL [facility] Base excess Calc (BldV) [Moles/Vol] 4.4 mmol/L High -3.0 - 3.0 mmol/L [facility] CO2 (BldV) [Partial pressure] 44.1 mm[Hg] [facility] CO2 [Moles/Vol] 30.4 mmol/L High 24.0 - 28.0 mmol/L [facility] HCO3 (Bld) [Moles/Vol] 29.1 mmol/L High 23.0 - 27.0 mmol/L [facility] Oxygen (BldV) [Partial pressure] 41.7 mm[Hg] mm Hg [facility] pH (BldV) 7.437 [pH] High 7.330 - 7.430 [facility] Troponin I.cardiac [Mass/Vol] 0.027 ng/mL [facility] - 0.034 ng/mL [facility] Lactate [Moles/Vol] 3.3 mmol/L High 0.7 - 2. 0 mmol/L [facility] Laboratory - Chemistry and C hemistry - challengeOrdered By: Christiano Weinberg on 02-19-2024 Base excess Calc (BldV) [Moles/Vol] 3.3 mmol/L High -3.0 - 3.0 mmol/L [facility] CO2 (BldV) [Partial pressure] 62.2 mm[Hg] High [facility] CO2 [Moles/Vol] 32.3 mmol/L High 24.0 - 28.0 mmol/L [facility] HCO3 (Bld) [Moles/Vol] 30.4 mmol/L High 23.0 - 27.0 mmol/L [facility] Oxygen (BldV) [Partial pressure] 19.6 mm[Hg] mm Hg [facility] pH (BldV) 7.307 [pH] Low 7.330 - 7.430 [facility] Laboratory - Hematology and Cell countson 02-19-2024 Hemoglobin (Bld) [Mass/Vol] 8.8 g/dL Screen only [facility] Laboratory - Hematology and Cell countsOrdered By: Christiano Weinberg on 02-19-2024 Hemoglobin (Bld) [Mass/Vol] 8.7 g/dL Screen only [facility] Natriuretic peptide B [Mass/ Vol]Ordered By: Handy Jarvis on 02-19-2024 Interpretation and review of laboratory results Abnormal [facility] Natriuretic peptide B (Bld) [Mass/Vol] 51491 pg/mL High NINF - 125 pg/mL [facility] No Panel InformationOrdered By: Amol Perdue on 02-19-2024 Interpretation and review of laboratory results Normal [facility] Legionella pneumophila Ag Not detected Not Detected [facility] Streptococcus pneumoniae Ag Not detected Not Detected [facility] Methodology: Lateral flow enzyme immunoassay This assay is approved for detection of antigens to Streptococcus pneumoniae and Legionella pneumophila serogroup 1; however, other L. pneumophila serogroups may also be detected. [facility] No Panel Informationon 02-18 Interpretation and review of laboratory results Normal [facility] Interpretation and review of laboratory results Abnormal [facility] Source Of Oxygen [facility] Comment on above: 6L Assessment of oxygenation is best done with an arterial blood gas determination. Reference ranges for pO2, bicarbonate, and base excess are for mixed venous blood. Specimens drawn from a peripheral vein will often have higher values. [facility] Interpretation and review of laboratory results Abnormal [facility] P [place] 67 degrees [facility] UT Interval 133 ms [facility] QRS [place] 3 degrees [facility] QRSD Interval 82 ms [facility] QT Interval 397 ms [facility] QTC Interval 465 ms [facility] T Wave [place] 48 degrees [facility] Sinus rhythm Probable left ventricular hypertrophy Anterior Q waves Electronically Signed On 02-19-2024 04:31:07 EST by Brown Barreto DO - 02/19/2024 IMPRESSION: Sinus rhythm Probable left ventricular hypertrophy Anterior Q waves Electronically Signed On 02-19-2024 04:31:07 EST by Brown Kaur [facility] No Panel InformationOrdered By: Christiano Weinberg on 02-19-2024 Interpretation and review of laboratory results Abnormal [facility] Source Of Oxygen [facility] Comment on above: 100% Assessment of oxygenation is best done with an arterial blood gas determination. Reference ranges for pO2, bicarbonate, and base excess are for mixed venous blood. Specimens drawn from a peripheral vein will often have higher values. [facility] Procalcitonin [Mass/Vol]on 04-20-2023 Interpretation and review of laboratory results Abnormal [facility] PCT <0.50 = Low risk of severe sepsis and/or septic shock. PCT >2.00 = High risk of severe sepsis and/or septic shock. [facility] Respiratory pathogens DNA an d RNA panel CHIQUIS+non-probe (Nph)on 02-19-2024 Adenovirus Not detected Not Detected [facility] B. pertussis DNA CHIQUIS+probe Ql (Unsp spec) Not detected Not Detected [facility] Bordetella parapertussis Not detected Not Detected [facility] Chlamydia pneumoniae Not detected Not Detected [facility] Coronavirus 229E Not detected Not Detected [facility] Coronavirus HKU1 Not detected Not Detected [facility] Coronavirus NL63 Not detected Not Detected [facility] Coronavirus OC43 Not detected Not Detected [facility] FLUAV RNA CHIQUIS+non-probe Ql (Nph) Not detected Not Detected [facility] FLUBV RNA CHIQUIS+non-probe Ql (Nph) Not detected Not Detected [facility] Human Metapneumovirus Not detected Not Detected [facility] Human Rhinovirus/Enterovirus Not detected Not Detected [facility] Interpretation and review of laboratory results Normal [facility] Mycoplasma pneumoniae Not detected Not Detected [facility] Parainfluenza 1 Not detected Not Detected [facility] Parainfluenza 2 Not detected Not Detected [facility] Parainfluenza 3 Not detected Not Detected [facility] Parainfluenza 4 Not detected Not Detected [facility] Respiratory Syncytial Virus Not detected Not Detected [facility] SARS-CoV-2 (COVID-19) RNA CHIQUIS+non-probe Ql (Nph) Not detected Not Detected [facility] Methodology: Multipl ex PCR [facility] Troponin I.cardiac [Mass/Vol ]on 02-19-2024 Interpretation and review of laboratory results Normal [facility] Patients with high levels of Biotin oral intake (ie >5 mg/day) may have falsely decreased Troponin levels. [facility] Interpretation and review of laboratory results Abnormal [facility] Patients with high levels of Biotin oral intake (ie >5 mg/day) may have falsely decreased Troponin levels. [facility] Interpretation and review of laboratory results Abnormal [facility] Patients with high levels of Biotin oral intake (ie >5 mg/day) may have falsely decreased Troponin levels. [facility] Interpretation and review of laboratory results Normal [facility] Moderately Hemolyzed . Interpret Troponin with caution. Patients with high levels of Biotin oral intake (ie >5 mg/day) may have falsely decreased Troponin levels. [facility] Vital signson 02-19-2024 Oxygen saturation in Venous blood 71.7 % [facility] Heart rate 82 /min bpm [facility] Vital signsOrdered By: Christiano Weinberg on 02-19-2024 Oxygen saturation in Venous blood 19.6 % [facility] XR Chest Single viewon 02-18 Extensive patchy bilateral pulmonary consolidation, which may be due to alveolar edema versus pneumonia. Moderate bilateral pleural effusions. Report Dictated on Electronically Signed By: Ana Ashton MD Electronically Signed Date/Time: 02/19/2024 4:37 AM EST [facility] [employer] SYSTEM Patient Name: APOORVA GONZALEZ : 1950 Exam Date/Time: 02/19/2024 04:15 Procedure: XR CHEST 1 VIEW Ordering Provider: HUFFMAN JUSTIN Reason For Exam: SOB CHEST CLINICAL INDICATION: SOB TECHNIQUE: AP portable chest COMPARISON: Chest radiograph from 10/01/2022 FINDINGS: SUPPORT DEVICES: None HEART AND MEDIASTINUM: Cardiac silhouette is upper normal in size and. LUNGS AND PLEURA: Extensive patchy bilateral pulmonary consolidation. Moderate bilateral pleural effusions. No pneumothorax is identified. OSSEOUS STRUCTURES: Unremarkable. [facility] RADIOLOG[facility] SYSTEM Ana Ashton M D - 02/19/2024 Patient Name: APOORVA GONZALEZ : 1950 [facility]#: [id number] Exam Date/Time: 02/19/2024 04:15 Procedure: XR CHEST 1 VIEW Ordering Provider: HUFFMAN JUSTIN Reason For Exam: SOB CHEST CLINICAL INDICATION: SOB TECHNIQUE: AP portable chest COMPARISON: Chest radiograph from 10/01/2022 FINDINGS: SUPPORT DEVICES: None HEART AND MEDIASTINUM: Cardiac silhouette is upper normal in size and. LUNGS AND PLEURA: Extensive patchy bilateral pulmonary consolidation. Moderate bilateral pleural effusions. No pneumothorax is identified. OSSEOUS STRUCTURES: Unremarkable. IMPRESSION: Extensive patchy bilateral pulmonary consolidation, which may be due to alveolar edema versus pneumonia. Moderate bilateral pleural effusions. Report Dictated on Electronically Signed By: Ana Ashton MD Electronically Signed Date/Time: 02/19/2024 4:37 AM EST [facility] Radiology Study observation (narrative) [facility] XR Chest Single viewOrdered By: Ana Ashton on 02-19-2024 [facility] Work Phone: Basic metabolic 1998 panelon 02-12-2024 Anion gap [Moles/Vol] 12 mmol/L 3 - 13 mmol/L [facility] Calcium [Mass/Vol] 8.7 mg/dL 8.4 - 10. 4 mg/dL [facility] Chloride [Moles/Vol] 90 mmol/L Low 98 - 10 7 mmol/L [facility] CO2 [Moles/Vol] 32 mmol/L High 22 - 30 mmol/L [facility] Creatinine [Mass/Vol] 2.71 mg/dL High 0.52 - 1.04 mg/dL [facility] GFR/1.73 sq M.predicted (S/P/Bld) [Vol rate/Area] 18 mL/min Low - PINF [facility] Comment on above: Calculation based on the Chronic Kidney Disease Epidemiology Collaboration (CKD-EPI) equation refit without adjustment for race Glucose [Mass/Vol] 92 mg/dL 70 - 100 mg/dL [facility] Interpretation and review of laboratory results Abnormal [facility] Potassium [Moles/Vol] 4 mmol/L 3.5 - 5.1 mmol/L [facility] Sodium [Moles/Vol] 134 mmol/L Low 135 - 145 mmol/L [facility] Urea nitrogen [Mass/Vol] 11 mg/dL 7 - 17 mg/dL [facility] Slightly Hemolyzed. Interpret K+ with caution. [facility] CBC panel Auto (Bld)on 02-11 Erythrocyte distribution width (RBC) [Ratio] 16.3 % High 11.5 - 15.0 % [facility] Hematocrit (Bld) [Volume fraction] 23.7 % Low 35.0 - 47.0 % [facility] Hemoglobin (Bld) [Mass/Vol] 7.6 g/dL Low 11.7 - 16.0 g/dL [facility] Interpretation and review of laboratory results Abnormal [facility] MCH (RBC) [Entitic mass] 30.8 pg 26.0 - 34.0 pg [facility] MCHC (RBC) [Mass/Vol] 32.1 % 30.5 - 36.0 % [facility] MCV (RBC) [Entitic vol] 96 fL 77.0 - 99.0 fL [facility] Platelet mean volume (Bld) [Entitic vol] 11 fL 9.0 - 12.7 fL [facility] Platelets (Bld) [#/Vol] 385 10*3/uL 140 - 440 10*3/uL [facility] RBC (Bld) [#/Vol] 2.47 10*6/uL Low 3.80 - 5.2 0 10*6/uL [facility] WBC (Bld) [#/Vol] 11.5 10*3/uL High 3.6 - 10.7 10*3/uL [facility] Laboratory - Chemistry and C hemistry - challengeon 02-12-2024 Troponin I.cardiac [Mass/Vol] 0.03 ng/mL [facility] - 0.034 ng/mL [facility] Troponin I.cardiac [Mass/Vol ]on 02-12-2024 Interpretation and review of laboratory results Normal [facility] Slightly Hemolyzed. Interpret Troponin I with caution. Patients with high levels of Biotin oral intake (ie >5 mg/day) may have falsely decreased Troponin levels. [facility] Basic metabolic 1998 panelon 01-25-2024 Anion gap [Moles/Vol] 17 mmol/L High 3 - 13 mmol/L [facility] Calcium [Mass/Vol] 8.3 mg/dL Low 8.4 - 10. 4 mg/dL [facility] Chloride [Moles/Vol] 101 mmol/L 98 - 10 7 mmol/L [facility] CO2 [Moles/Vol] 18 mmol/L Low 22 - 30 mmol/L [facility] Creatinine [Mass/Vol] 8.47 mg/dL High 0.52 - 1.04 mg/dL [facility] GFR/1.73 sq M.predicted (S/P/Bld) [Vol rate/Area] 4.6 mL/min Low - PINF [facility] Comment on above: Calculation based on the Chronic Kidney Disease Epidemiology Collaboration (CKD-EPI) equation refit without adjustment for race Glucose [Mass/Vol] 82 mg/dL 70 - 100 mg/dL [facility] Interpretation and review of laboratory results Abnormal [facility] Potassium [Moles/Vol] 4.6 mmol/L 3.5 - 5.1 mmol/L [facility] Sodium [Moles/Vol] 136 mmol/L 135 - 145 mmol/L [facility] Urea nitrogen [Mass/Vol] 36 mg/dL High 7 - 17 mg/dL [facility] CBC W Auto Differential pane l (Bld)on 01-25-2024 Basophils (Bld) [#/Vol] 0.1 10*3/uL 0.0 - 0.2 10*3/uL [facility] Basophils/100 WBC (Bld) 0.9 % 0.0 - 2.0 % [facility] Eosinophils (Bld) [#/Vol] 0.3 10*3/uL 0.0 - 0.5 10*3/uL [facility] Eosinophils/100 WBC (Bld) 1.7 % 0.0 - 6.0 % [facility] Erythrocyte distribution width (RBC) [Ratio] 15.7 % High 11.5 - 15.0 % [facility] Hematocrit (Bld) [Volume fraction] 26.4 % Low 35.0 - 47.0 % [facility] Hemoglobin (Bld) [Mass/Vol] 8.6 g/dL Low 11.7 - 16.0 g/dL [facility] Immature granulocytes (Bld) [#/Vol] 0.1 10*3/uL High NINF - 0.1 10*3/uL [facility] Immature granulocytes/100 WBC (Bld) 0.7 % 0.0 - 2.0 % [facility] Interpretation and review of laboratory results Abnormal [facility] Lymphocytes (Bld) [#/Vol] 2.3 10*3/uL 1.0 - 4.3 10*3/uL [facility] Lymphocytes/100 WBC (Bld) 15.3 % 15.0 - 45.0 % [facility] MCH (RBC) [Entitic mass] 30.3 pg 26.0 - 34.0 pg [facility] MCHC (RBC) [Mass/Vol] 32.6 % 30.5 - 36.0 % [facility] MCV (RBC) [Entitic vol] 93 fL 77.0 - 99.0 fL [facility] Monocytes (Bld) [#/Vol] 0.8 10*3/uL 0.0 - 0.9 10*3/uL [facility] Monocytes/100 WBC (Bld) 5 % 5.0 - 13.0 % [facility] Neutrophils (Bld) [#/Vol] 11.6 10*3/uL High 1.8 - 7.5 10*3/uL [facility] Neutrophils/100 WBC (Bld) 76.4 % 38.0 - 82.0 % [facility] Nucleated RBC/100 WBC (Bld) [Ratio] 0 % [facility] Platelet mean volume (Bld) [Entitic vol] 9.8 fL 9.0 - 12.7 fL [facility] Platelets (Bld) [#/Vol] 400 10*3/uL 140 - 440 10*3/uL [facility] RBC (Bld) [#/Vol] 2.84 10*6/uL Low 3.80 - 5.2 0 10*6/uL [facility] WBC (Bld) [#/Vol] 15.1 10*3/uL High 3.6 - 10.7 10*3/uL [facility] Laboratory - Chemistry and C hemistry - challengeon 01-25-2024 Magnesium [Mass/Vol] 2.2 mg/dL 1.6 - 2 .3 mg/dL [facility] Magnesium [Mass/Vol]on 01-24 Interpretation and review of laboratory results Normal [facility] No Panel Informationon 01-24 [facility] Phosphate [Moles/Vol]on 01-04 Interpretation and review of laboratory results Abnormal [facility] Phosphate [Mass/Vol] 5.7 mg/dL High 2.5 - 4 .5 mg/dL [facility] Basic metabolic 1998 panelOr rich By: Mak Hobbs on 01-24-2024 Anion gap [Moles/Vol] 11 mmol/L 3 - 13 mmol/L [facility] Calcium [Mass/Vol] 7.7 mg/dL Low 8.4 - 10. 4 mg/dL [facility] Chloride [Moles/Vol] 103 mmol/L 98 - 10 7 mmol/L [facility] CO2 [Moles/Vol] 23 mmol/L 22 - 30 mmol/L [facility] Creatinine [Mass/Vol] 6.63 mg/dL High 0.52 - 1.04 mg/dL [facility] GFR/1.73 sq M.predicted (S/P/Bld) [Vol rate/Area] 6.2 mL/min Low - PINF [facility] Comment on above: Calculation based on the Chronic Kidney Disease Epidemiology Collaboration (CKD-EPI) equation refit without adjustment for race Glucose [Mass/Vol] 116 mg/dL High 70 - 100 mg/dL [facility] Interpretation and review of laboratory results Abnormal [facility] Potassium [Moles/Vol] 4 mmol/L 3.5 - 5.1 mmol/L [facility] Sodium [Moles/Vol] 136 mmol/L 135 - 145 mmol/L [facility] Urea nitrogen [Mass/Vol] 30 mg/dL High 7 - 17 mg/dL [facility] Blood type and Crossmatch pa kojo (Bld)on 01-24-2024 ABO group Nom (Bld) O [facility] Blood group antibody screen GEL Ql Negative [facility] D Ag Ql (RBC) Positive [facility] CBC W Auto Differential pane l (Bld)on 01-24-2024 Basophils (Bld) [#/Vol] 0.1 10*3/uL 0.0 - 0.2 10*3/uL [facility] Basophils/100 WBC (Bld) 0.7 % 0.0 - 2.0 % [facility] Eosinophils (Bld) [#/Vol] 0.2 10*3/uL 0.0 - 0.5 10*3/uL [facility] Eosinophils/100 WBC (Bld) 1.7 % 0.0 - 6.0 % [facility] Erythrocyte distribution width (RBC) [Ratio] 16.3 % High 11.5 - 15.0 % [facility] Hematocrit (Bld) [Volume fraction] 19.8 % Low 35.0 - 47.0 % [facility] Hemoglobin (Bld) [Mass/Vol] 6.4 g/dL Critically low 11.7 - 16.0 g/dL [facility] Immature granulocytes (Bld) [#/Vol] 0.1 10*3/uL High NINF - 0.1 10*3/uL [facility] Immature granulocytes/100 WBC (Bld) 0.8 % 0.0 - 2.0 % [facility] Interpretation and review of laboratory results Abnormal [facility] Lymphocytes (Bld) [#/Vol] 1.5 10*3/uL 1.0 - 4.3 10*3/uL [facility] Lymphocytes/100 WBC (Bld) 10.5 % Low 15.0 - 45.0 % [facility] MCH (RBC) [Entitic mass] 29.9 pg 26.0 - 34.0 pg [facility] MCHC (RBC) [Mass/Vol] 32.3 % 30.5 - 36.0 % [facility] MCV (RBC) [Entitic vol] 92.5 fL 77.0 - 99.0 fL [facility] Monocytes (Bld) [#/Vol] 0.6 10*3/uL 0.0 - 0.9 10*3/uL [facility] Monocytes/100 WBC (Bld) 4.4 % Low 5.0 - 13.0 % [facility] Neutrophils (Bld) [#/Vol] 11.6 10*3/uL High 1.8 - 7.5 10*3/uL [facility] Neutrophils/100 WBC (Bld) 81.9 % 38.0 - 82.0 % [facility] Nucleated RBC/100 WBC (Bld) [Ratio] 0 % [facility] Platelet mean volume (Bld) [Entitic vol] 10 fL 9.0 - 12.7 fL [facility] Platelets (Bld) [#/Vol] 327 10*3/uL 140 - 440 10*3/uL [facility] RBC (Bld) [#/Vol] 2.14 10*6/uL Low 3.80 - 5.2 0 10*6/uL [facility] WBC (Bld) [#/Vol] 14.2 10*3/uL High 3.6 - 10.7 10*3/uL [facility] Guidance for embolization of Vess[place] 01-24-2024 Angiography of the celiac, superior mesenteric, and inferior mesenteric arteries demonstrates no active extravasation to suggest active hemorrhage. No embolization performed. Would consider inpatient colonoscopy for further evaluation of hemorrhage episodes due to multiple hemorrhages at varying geographic locations. PROCEDURE SUMMARY: - Arterial puncture with ultrasound guidance - Selective mesenteric angiography: Celiac, superior mesenteric, and inferior mesenteric angiography - Superselective mesenteric angiography: Not performed - Additional procedure(s): None PROCEDURE DETAILS: Pre-procedure Consent: Informed consent for the procedure including risks, benefits and alternatives was obtained and time-out was performed prior to the procedure. Preparation: The site was prepared and draped using maximal sterile barrier technique including cutaneous antisepsis. Anesthesia/sedation The first dose of sedation was given in the presence of Jovan Glynn MD by an independent trained observer. Total sedation time of 45 minutes. Level of anesthesia/sedation: Moderate sedation (conscious sedation) Access Local anesthesia was administered. The vessel was sonographically evaluated and judged to be patent. Real time ultrasound was used to visualize needle entry into the vessel and a permanent image was stored. A 5 Cypriot short sheath was placed. Vessel accessed: Left common femoral artery Access technique: Micropuncture set with 21 gauge needle Aortography Vessel catheterized: Not performed Findings: Not applicable Mesenteric angiography The mesenteric arterial system was catheterized using SOS catheter and Bentson wire combination. Variant anatomy: None Vessel catheterized: Celiac artery Findings: Angiography of the celiac artery demonstrates conventional anatomy. Patency of the celiac trunk and branch vasculature are observed. No evidence of active extravasation, vasospasm, or arteriovenous malformation. Vessel catheterized: Superior mesenteric artery Findings: Angiography of the superior mesenteric artery demonstrates conventional anatomy. Patency of the trunk and branch vasculature is observed. No evidence of active extravasation, vasospasm, or arteriovenous malformation despite multiple injections at various time intervals. Vessel catheterized: Inferior mesenteric artery Findings: Angiography of the inferior mesenteric artery demonstrates conventional anatomy. Patency of the trunk and branch vasculature is observed. No evidence of active extravasation, vasospasm, or arteriovenous malformation despite multiple injections at various time intervals. Closure Access site angiography performed: Yes Findings: Patent vessel with appropriate access level Arterial closure technique: Angioseal Hemostasis achieved from closure technique: Yes Duration of manual compression (minutes): 2 Contrast Contrast agent: Isovue-300 Contrast volume (mL): 100 Radiation Dose Fluoroscopy time (minutes): 4.1 Reference air kerma (mGy): 6.2 Additional Details Additional description of procedure: None Equipment details: None Specimens removed: None Estimated blood loss (mL): Less than 10 Report Dictated on Electronically Signed By: Jovan Glynn MD Electronically Signed Date/Time: 01/24/2024 5:35 PM EDT [facility] [employer] Patient Name: APOORVA GONZALEZ : 1950 Exam Date/Time: 01/24/2024 17:22 Procedure: IR EMBOLIZATION Ordering Provider: COLLIER LATHA Reason For Exam: as above PROCEDURE: Mesenteric angiography Procedural Personnel Attending physician(s): Jovan Glynn MD Indication: Gastrointestinal bleeding Additional clinical history: Patient with history of multiple gastrointestinal hemorrhage episodes status post 01/19/2024 angiogram, now presenting with tagged red blood cell scan positive for bleeding at the splenic flexure. Complications: No immediate complications. [facility] Jovan Glynn MD - 01/24/2024 Patient Name: APOORVA GONZALEZ : 1950 Exam Date/Time: 01/24/2024 17:22 Procedure: IR EMBOLIZATION Ordering Provider: COLLIER LATHA Reason For Exam: as above PROCEDURE: Mesenteric angiography Procedural Personnel Attending physician(s): Jovan Glynn MD Indication: Gastrointestinal bleeding Additional clinical history: Patient with history of multiple gastrointestinal hemorrhage episodes status post 01/19/2024 angiogram, now presenting with tagged red blood cell scan positive for bleeding at the splenic flexure. Complications: No immediate complications. IMPRESSION: Angiography of the celiac, superior mesenteric, and inferior mesenteric arteries demonstrates no active extravasation to suggest active hemorrhage. No embolization performed. Would consider inpatient colonoscopy for further evaluation of hemorrhage episodes due to multiple hemorrhages at varying geographic locations. PROCEDURE SUMMARY: - Arterial puncture with ultrasound guidance - Selective mesenteric angiography: Celiac, superior mesenteric, and inferior mesenteric angiography - Superselective mesenteric angiography: Not performed - Additional procedure(s): None PROCEDURE DETAILS: Pre-procedure Consent: Informed consent for the procedure including risks, benefits and alternatives was obtained and time-out was performed prior to the procedure. Preparation: The site was prepared and draped using maximal sterile barrier technique including cutaneous antisepsis. Anesthesia/sedation The first dose of sedation was given in the presence of Jovan Glynn MD by an independent trained observer. Total sedation time of 45 minutes. Level of anesthesia/sedation: Moderate sedation (conscious sedation) Access Local anesthesia was administered. The vessel was sonographically evaluated and judged to be patent. Real time ultrasound was used to visualize needle entry into the vessel and a permanent image was stored. A 5 Cypriot short sheath was placed. Vessel accessed: Left common femoral artery Access technique: Micropuncture set with 21 gauge needle Aortography Vessel catheterized: Not performed Findings: Not applicable Mesenteric angiography The mesenteric arterial system was catheterized using SOS catheter and Bentson wire combination. Variant anatomy: None Vessel catheterized: Celiac artery Findings: Angiography of the celiac artery demonstrates conventional anatomy. Patency of the celiac trunk and branch vasculature are observed. No evidence of active extravasation, vasospasm, or arteriovenous malformation. Vessel catheterized: Superior mesenteric artery Findings: Angiography of the superior mesenteric artery demonstrates conventional anatomy. Patency of the trunk and branch vasculature is observed. No evidence of active extravasation, vasospasm, or arteriovenous malformation despite multiple injections at various time intervals. Vessel catheterized: Inferior mesenteric artery Findings: Angiography of the inferior mesenteric artery demonstrates conventional anatomy. Patency of the trunk and branch vasculature is observed. No evidence of active extravasation, vasospasm, or arteriovenous malformation despite multiple injections at various time intervals. Closure Access site angiography performed: Yes Findings: Patent vessel with appropriate access level Arterial closure technique: Angioseal Hemostasis achieved from closure technique: Yes Duration of manual compression (minutes): 2 Contrast Contrast agent: Isovue-300 Contrast volume (mL): 100 Radiation Dose Fluoroscopy time (minutes): 4.1 Reference air kerma (mGy): 6.2 Additional Details Additional description of procedure: None Equipment details: None Specimens removed: None Estimated blood loss (mL): Less than 10 Report Dictated on Electronically Signed By: Jovan Glynn MD Electronically Signed Date/Time: 01/24/2024 5:35 PM EDT [facility] Radiology Study observation (narrative) [facility] Guidance for embolization of VesselsOrdered By: Jovan Glynn on 01-24-2024 [facility] Work Phone: Hemoglobin (Bld) [Mass/Vol]o n 01-24-2024 Hematocrit (Bld) [Volume fraction] 23.7 % Low 35.0 - 47.0 % [facility] Interpretation and review of laboratory results Abnormal [facility] Hemoglobin (Bld) [Mass/Vol]O rdered By: Ct Hays on 01-24-2024 Hematocrit (Bld) [Volume fraction] 23 % Low 35.0 - 47.0 % [facility] Interpretation and review of laboratory results Abnormal [facility] Laboratory - Chemistry and C hemistry - challengeon 01-24-2024 Magnesium [Mass/Vol] 2 mg/dL 1.6 - 2 .3 mg/dL [facility] Laboratory - Hematology and Cell countson 01-24-2024 Hemoglobin (Bld) [Mass/Vol] 7.7 g/dL Low 11.7 - 16.0 g/dL [facility] Laboratory - Hematology and Cell countsOrdered By: Ct Hays on 01-24-2024 Hemoglobin (Bld) [Mass/Vol] 7.7 g/dL Low 11.7 - 16.0 g/dL [facility] Magnesium [Mass/Vol]on 01-23 Interpretation and review of laboratory results Normal [facility] Gastrointestinal tract Vi ews for gastrointestinal bleedingon 01-24-2024 Findings consistent with active gastrointestinal hemorrhage, which appears to originate from the colon near the splenic flexure. Report Dictated on Electronically Signed By: Veronica Monsivais MD Electronically Signed Date/Time: 01/24/2024 2:58 PM EDT [facility] Patient Name: APOORVA GONZALEZ : 1950 Exam Date/Time: 01/24/2024 14:46 Procedure: NM GASTROINTESTINAL BLEEDING Ordering Provider: MARTINEZ LISA Reason For Exam: BRBPR, anemia NUCLEAR GI BLEED SCAN CLINICAL INDICATION: Bright red blood per rectum, anemia The patient received an intravenous dose of 23.8 millicuries of technetium 99m via the Ultratag technique for radiolabeling of the circulating erythrocyte blood pool. Dynamic images of the abdomen and pelvis were obtained for approximately 60 minutes following injection. FINDINGS: Abnormal, progressive accumulation of radiolabeled red blood cells is identified within the left side of the abdomen, favored to originate from near the splenic flexure of the colon. Normal blood pool activity is present in the liver, spleen, and large intra-abdominal vessels. [facility] Veronica Monsivais MD - 01/24/2024 Patient Name: APOORVA GONZALEZ : 1950 Exam Date/Time: 01/24/2024 14:46 Procedure: NM GASTROINTESTINAL BLEEDING Ordering Provider: MARTINEZ LISA Reason For Exam: BRBPR, anemia NUCLEAR GI BLEED SCAN CLINICAL INDICATION: Bright red blood per rectum, anemia The patient received an intravenous dose of 23.8 millicuries of technetium 99m via the Ultratag technique for radiolabeling of the circulating erythrocyte blood pool. Dynamic images of the abdomen and pelvis were obtained for approximately 60 minutes following injection. FINDINGS: Abnormal, progressive accumulation of radiolabeled red blood cells is identified within the left side of the abdomen, favored to originate from near the splenic flexure of the colon. Normal blood pool activity is present in the liver, spleen, and large intra-abdominal vessels. IMPRESSION: Findings consistent with active gastrointestinal hemorrhage, which appears to originate from the colon near the splenic flexure. Report Dictated on Electronically Signed By: Veronica Monsivais MD Electronically Signed Date/Time: 01/24/2024 2:58 PM EDT [facility] Radiology Study observation (narrative) [facility] NM Gastrointestinal tract Vi ews for gastrointestinal bleedingOrdered By: Veronica Monsivais on 01-24-2024 [facility] No Panel Informationon 01-23 Blood Expiration Date [id number] [facility] Crossmatch interpretation COMP [facility] Dispense Status Transfused [facility] Product Blood Type 5100 [facility] PRODUCT CODE [id number] [facility] Unit ABO O [facility] Unit Number [id number] [facility] Unit RH Positive [facility] Unit Volume 300 mL [facility] Phosphate [Moles/Vol]on 01-04 Interpretation and review of laboratory results Abnormal [facility] Phosphate [Mass/Vol] 5 mg/dL High 2.5 - 4 .5 mg/dL [facility] Basic metabolic 1998 panelOr dered By: Gracie Wooten on 01-23-2024 Anion gap [Moles/Vol] 5 mmol/L 3 - 13 mmol/L [facility] Calcium [Mass/Vol] 7.6 mg/dL Low 8.4 - 10. 4 mg/dL [facility] Chloride [Moles/Vol] 101 mmol/L 98 - 10 7 mmol/L [facility] CO2 [Moles/Vol] 30 mmol/L 22 - 30 mmol/L [facility] Creatinine [Mass/Vol] 4.86 mg/dL High 0.52 - 1.04 mg/dL [facility] GFR/1.73 sq M.predicted (S/P/Bld) [Vol rate/Area] 8.9 mL/min Low - PINF [facility] Comment on above: Calculation based on the Chronic Kidney Disease Epidemiology Collaboration (CKD-EPI) equation refit without adjustment for race Glucose [Mass/Vol] 107 mg/dL High 70 - 100 mg/dL [facility] Interpretation and review of laboratory results Abnormal [facility] Potassium [Moles/Vol] 4.4 mmol/L 3.5 - 5.1 mmol/L [facility] Sodium [Moles/Vol] 136 mmol/L 135 - 145 mmol/L [facility] Urea nitrogen [Mass/Vol] 26 mg/dL High 7 - 17 mg/dL [facility] CBC W Auto Differential pane l (Bld)on 01-23-2024 Basophils (Bld) [#/Vol] 0.1 10*3/uL 0.0 - 0.2 10*3/uL [facility] Basophils/100 WBC (Bld) 0.7 % 0.0 - 2.0 % [facility] Eosinophils (Bld) [#/Vol] 0.4 10*3/uL 0.0 - 0.5 10*3/uL [facility] Eosinophils/100 WBC (Bld) 3.1 % 0.0 - 6.0 % [facility] Erythrocyte distribution width (RBC) [Ratio] 16 % High 11.5 - 15.0 % [facility] Hematocrit (Bld) [Volume fraction] 24.7 % Low 35.0 - 47.0 % [facility] Hemoglobin (Bld) [Mass/Vol] 8 g/dL Low 11.7 - 16.0 g/dL [facility] Immature granulocytes (Bld) [#/Vol] 0.1 10*3/uL High NINF - 0.1 10*3/uL [facility] Immature granulocytes/100 WBC (Bld) 0.7 % 0.0 - 2.0 % [facility] Interpretation and review of laboratory results Abnormal [facility] Lymphocytes (Bld) [#/Vol] 1.6 10*3/uL 1.0 - 4.3 10*3/uL [facility] Lymphocytes/100 WBC (Bld) 11.5 % Low 15.0 - 45.0 % [facility] MCH (RBC) [Entitic mass] 29.6 pg 26.0 - 34.0 pg [facility] MCHC (RBC) [Mass/Vol] 32.4 % 30.5 - 36.0 % [facility] MCV (RBC) [Entitic vol] 91.5 fL 77.0 - 99.0 fL [facility] Monocytes (Bld) [#/Vol] 0.9 10*3/uL 0.0 - 0.9 10*3/uL [facility] Monocytes/100 WBC (Bld) 6.4 % 5.0 - 13.0 % [facility] Neutrophils (Bld) [#/Vol] 10.7 10*3/uL High 1.8 - 7.5 10*3/uL [facility] Neutrophils/100 WBC (Bld) 77.6 % 38.0 - 82.0 % [facility] Nucleated RBC/100 WBC (Bld) [Ratio] 0 % [facility] Platelet mean volume (Bld) [Entitic vol] 10 fL 9.0 - 12.7 fL [facility] Platelets (Bld) [#/Vol] 325 10*3/uL 140 - 440 10*3/uL [facility] RBC (Bld) [#/Vol] 2.7 10*6/uL Low 3.80 - 5.2 0 10*6/uL [facility] WBC (Bld) [#/Vol] 13.8 10*3/uL High 3.6 - 10.7 10*3/uL [facility] - Chemistry and C hemistry - challengeon 01-23-2024 Glucose [Mass/Vol] 87 mg/dL 70 - 100 mg/dL [facility] Magnesium [Mass/Vol] 2.1 mg/dL 1.6 - 2 .3 mg/dL [facility] No Panel Informationon 01-22 Interpretation and review of laboratory results Normal [facility] Performed by: [facility], [address] [place] [address] CLIA ID: [id number] [facility] Interpretation and review of laboratory results Normal [facility] Phosphate [Moles/Vol]on 01-04 Phosphate [Mass/Vol] 4.3 mg/dL 2.5 - 4 .5 mg/dL [facility] Basic metabolic 1998 panelOr dered By: Christiano Weinberg on 01-22-2024 Anion gap [Moles/Vol] 9 mmol/L 3 - 13 mmol/L [facility] Calcium [Mass/Vol] 6.7 mg/dL Low 8.4 - 10. 4 mg/dL [facility] Chloride [Moles/Vol] 102 mmol/L 98 - 10 7 mmol/L [facility] CO2 [Moles/Vol] 21 mmol/L Low 22 - 30 mmol/L [facility] Creatinine [Mass/Vol] 7.66 mg/dL High 0.52 - 1.04 mg/dL [facility] GFR/1.73 sq M.predicted (S/P/Bld) [Vol rate/Area] 5.2 mL/min Low - PINF [facility] Comment on above: Calculation based on the Chronic Kidney Disease Epidemiology Collaboration (CKD-EPI) equation refit without adjustment for race Glucose [Mass/Vol] 78 mg/dL 70 - 100 mg/dL [facility] Interpretation and review of laboratory results Abnormal [facility] Potassium [Moles/Vol] 4.8 mmol/L 3.5 - 5.1 mmol/L [facility] Sodium [Moles/Vol] 133 mmol/L Low 135 - 145 mmol/L [facility] Urea nitrogen [Mass/Vol] 49 mg/dL High 7 - 17 mg/dL [facility] CBC W Auto Differential pane l (Bld)on 01-22-2024 Basophils (Bld) [#/Vol] 0.1 10*3/uL 0.0 - 0.2 10*3/uL [facility] Basophils/100 WBC (Bld) 0.5 % 0.0 - 2.0 % [facility] Eosinophils (Bld) [#/Vol] 0.5 10*3/uL 0.0 - 0.5 10*3/uL [facility] Eosinophils/100 WBC (Bld) 2.5 % 0.0 - 6.0 % [facility] Erythrocyte distribution width (RBC) [Ratio] 16.8 % High 11.5 - 15.0 % [facility] Hematocrit (Bld) [Volume fraction] 24.3 % Low 35.0 - 47.0 % [facility] Hemoglobin (Bld) [Mass/Vol] 8 g/dL Low 11.7 - 16.0 g/dL [facility] Immature granulocytes (Bld) [#/Vol] 0.1 10*3/uL High NINF - 0.1 10*3/uL [facility] Immature granulocytes/100 WBC (Bld) 0.6 % 0.0 - 2.0 % [facility] Interpretation and review of laboratory results Abnormal [facility] Lymphocytes (Bld) [#/Vol] 2.4 10*3/uL 1.0 - 4.3 10*3/uL [facility] Lymphocytes/100 WBC (Bld) 13.4 % Low 15.0 - 45.0 % [facility] MCH (RBC) [Entitic mass] 29.5 pg 26.0 - 34.0 pg [facility] MCHC (RBC) [Mass/Vol] 32.9 % 30.5 - 36.0 % [facility] MCV (RBC) [Entitic vol] 89.7 fL 77.0 - 99.0 fL [facility] Monocytes (Bld) [#/Vol] 1.3 10*3/uL High 0.0 - 0.9 10*3/uL [facility] Monocytes/100 WBC (Bld) 7.1 % 5.0 - 13.0 % [facility] Neutrophils (Bld) [#/Vol] 13.4 10*3/uL High 1.8 - 7.5 10*3/uL [facility] Neutrophils/100 WBC (Bld) 75.9 % 38.0 - 82.0 % [facility] Nucleated RBC/100 WBC (Bld) [Ratio] 0 % [facility] Platelet mean volume (Bld) [Entitic vol] 10.4 fL 9.0 - 12.7 fL [facility] Platelets (Bld) [#/Vol] 292 10*3/uL 140 - 440 10*3/uL [facility] RBC (Bld) [#/Vol] 2.71 10*6/uL Low 3.80 - 5.2 0 10*6/uL [facility] WBC (Bld) [#/Vol] 17.7 10*3/uL High 3.6 - 10.7 10*3/uL [facility] HBV surface Ab IA Qnon 01-21 Interpretation: <8.0 Non-Reactive 8.0-11.9 Equivocal >= 12.0 Ab Detected Note: If an equivocal result is interpreted, an antibody status is unable to be determined. Collect new specimen if clinically indicated. [facility] HBV surface Ag IA Qlon 01-21 Interpretation and review of laboratory results Normal [facility] Laboratory - Chemistry and C hemistry - challengeon 01-22-2024 Magnesium [Mass/Vol] 2.2 mg/dL 1.6 - 2 .3 mg/dL [facility] Laboratory - Microbiology an d Antimicrobial susceptibilityon 01-22-2024 HBV surface Ab IA Qn mIU/mL [facility] HBV surface Ag IA Ql Not detected Not Detected [facility] Magnesium [Mass/Vol]on 01-21 Interpretation and review of laboratory results Normal [facility] No Panel Informationon 01-21 [facility] Phosphate [Moles/Vol]on 01-03 Interpretation and review of laboratory results Abnormal [facility] Phosphate [Mass/Vol] 5.5 mg/dL High 2.5 - 4 .5 mg/dL [facility] Basic metabolic 1998 panelOr dered By: Handy Jarvis on 01-21-2024 Anion gap [Moles/Vol] 9 mmol/L 3 - 13 mmol/L [facility] Calcium [Mass/Vol] 7.4 mg/dL Low 8.4 - 10. 4 mg/dL [facility] Chloride [Moles/Vol] 100 mmol/L 98 - 10 7 mmol/L [facility] CO2 [Moles/Vol] 26 mmol/L 22 - 30 mmol/L [facility] Creatinine [Mass/Vol] 4.74 mg/dL High 0.52 - 1.04 mg/dL [facility] GFR/1.73 sq M.predicted (S/P/Bld) [Vol rate/Area] 9.2 mL/min Low - PINF [facility] Comment on above: Calculation based on the Chronic Kidney Disease Epidemiology Collaboration (CKD-EPI) equation refit without adjustment for race Glucose [Mass/Vol] 85 mg/dL 70 - 100 mg/dL [facility] Interpretation and review of laboratory results Abnormal [facility] Potassium [Moles/Vol] 4.5 mmol/L 3.5 - 5.1 mmol/L [facility] Sodium [Moles/Vol] 135 mmol/L 135 - 145 mmol/L [facility] Urea nitrogen [Mass/Vol] 26 mg/dL High 7 - 17 mg/dL [facility] CBC W Auto Differential pane l (Bld)on 01-21-2024 Basophils (Bld) [#/Vol] 0.1 10*3/uL 0.0 - 0.2 10*3/uL [facility] Basophils/100 WBC (Bld) 0.6 % 0.0 - 2.0 % [facility] Eosinophils (Bld) [#/Vol] 0.1 10*3/uL 0.0 - 0.5 10*3/uL [facility] Eosinophils/100 WBC (Bld) 0.6 % 0.0 - 6.0 % [facility] Erythrocyte distribution width (RBC) [Ratio] 16.4 % High 11.5 - 15.0 % [facility] Hematocrit (Bld) [Volume fraction] 21 % Low 35.0 - 47.0 % [facility] Hemoglobin (Bld) [Mass/Vol] 7 g/dL Low 11.7 - 16.0 g/dL [facility] Immature granulocytes (Bld) [#/Vol] 0.2 10*3/uL High NINF - 0.1 10*3/uL [facility] Immature granulocytes/100 WBC (Bld) 0.7 % 0.0 - 2.0 % [facility] Interpretation and review of laboratory results Abnormal [facility] Lymphocytes (Bld) [#/Vol] 2.8 10*3/uL 1.0 - 4.3 10*3/uL [facility] Lymphocytes/100 WBC (Bld) 12.4 % Low 15.0 - 45.0 % [facility] MCH (RBC) [Entitic mass] 30.2 pg 26.0 - 34.0 pg [facility] MCHC (RBC) [Mass/Vol] 33.3 % 30.5 - 36.0 % [facility] MCV (RBC) [Entitic vol] 90.5 fL 77.0 - 99.0 fL [facility] Monocytes (Bld) [#/Vol] 1.2 10*3/uL High 0.0 - 0.9 10*3/uL [facility] Monocytes/100 WBC (Bld) 5.4 % 5.0 - 13.0 % [facility] Neutrophils (Bld) [#/Vol] 18.3 10*3/uL High 1.8 - 7.5 10*3/uL [facility] Neutrophils/100 WBC (Bld) 80.3 % 38.0 - 82.0 % [facility] Nucleated RBC/100 WBC (Bld) [Ratio] 0 % [facility] Platelet mean volume (Bld) [Entitic vol] 10.5 fL 9.0 - 12.7 fL [facility] Platelets (Bld) [#/Vol] 268 10*3/uL 140 - 440 10*3/uL [facility] RBC (Bld) [#/Vol] 2.32 10*6/uL Low 3.80 - 5.2 0 10*6/uL [facility] WBC (Bld) [#/Vol] 22.8 10*3/uL High 3.6 - 10.7 10*3/uL [facility] Hemoglobin (Bld) [Mass/Vol]o n 01-21-2024 Hematocrit (Bld) [Volume fraction] 24.9 % Low 35.0 - 47.0 % [facility] Interpretation and review of laboratory results Abnormal [facility] Hemoglobin (Bld) [Mass/Vol]O rdered By: Shauna Ayon on 01-21-2024 Hematocrit (Bld) [Volume fraction] 20.4 % Low 35.0 - 47.0 % [facility] Interpretation and review of laboratory results Abnormal [facility] - Chemistry and C hemistry - challengeon 01-21-2024 Magnesium [Mass/Vol] 2 mg/dL 1.6 - 2 .3 mg/dL [facility] Laboratory - Hematology and Cell countson 01-21-2024 Hemoglobin (Bld) [Mass/Vol] 8.2 g/dL Low 11.7 - 16.0 g/dL [facility] Laboratory - Hematology and Cell countsOrdered By: Shauna Ayon on 01-21-2024 Hemoglobin (Bld) [Mass/Vol] 6.8 g/dL Critically low 11.7 - 16.0 g/dL [facility] Magnesium [Mass/Vol]on 01-20 Interpretation and review of laboratory results Normal [facility] No Panel Informationon 01-20 Blood Expiration Date [id number] [facility] Crossmatch interpretation COMP [facility] Dispense Status Transfused [facility] Product Blood Type 5100 [facility] PRODUCT CODE [id number] [facility] Unit ABO O [facility] Unit Number [id number] [facility] Unit RH Positive [facility] Unit Volume 300 mL [facility] Phosphate [Moles/Vol]on 01-03 Interpretation and review of laboratory results Abnormal [facility] Phosphate [Mass/Vol] 6.4 mg/dL High 2.5 - 4 .5 mg/dL [facility] Basic metabolic 1998 panelon 01-20-2024 Anion gap [Moles/Vol] 9 mmol/L 3 - 13 mmol/L [facility] Calcium [Mass/Vol] 7.2 mg/dL Low 8.4 - 10. 4 mg/dL [facility] Chloride [Moles/Vol] 97 mmol/L Low 98 - 10 7 mmol/L [facility] CO2 [Moles/Vol] 27 mmol/L 22 - 30 mmol/L [facility] Creatinine [Mass/Vol] 8.34 mg/dL High 0.52 - 1.04 mg/dL [facility] GFR/1.73 sq M.predicted (S/P/Bld) [Vol rate/Area] 4.7 mL/min Low - PINF [facility] Comment on above: Calculation based on the Chronic Kidney Disease Epidemiology Collaboration (CKD-EPI) equation refit without adjustment for race Glucose [Mass/Vol] 116 mg/dL High 70 - 100 mg/dL [facility] Interpretation and review of laboratory results Abnormal [facility] Potassium [Moles/Vol] 5.3 mmol/L High 3.5 - 5.1 mmol/L [facility] Sodium [Moles/Vol] 132 mmol/L Low 135 - 145 mmol/L [facility] Urea nitrogen [Mass/Vol] 50 mg/dL High 7 - 17 mg/dL [facility] CBC W Auto Differential pane l (Bld)on 01-20-2024 Basophils (Bld) [#/Vol] 0.1 10*3/uL 0.0 - 0.2 10*3/uL [facility] Basophils/100 WBC (Bld) 0.5 % 0.0 - 2.0 % [facility] Eosinophils (Bld) [#/Vol] 0 10*3/uL 0.0 - 0.5 10*3/uL [facility] Eosinophils/100 WBC (Bld) 0 % 0.0 - 6.0 % [facility] Erythrocyte distribution width (RBC) [Ratio] 15.6 % High 11.5 - 15.0 % [facility] Hematocrit (Bld) [Volume fraction] 24.9 % Low 35.0 - 47.0 % [facility] Hemoglobin (Bld) [Mass/Vol] 8.5 g/dL Low 11.7 - 16.0 g/dL [facility] Immature granulocytes (Bld) [#/Vol] 0.1 10*3/uL High NINF - 0.1 10*3/uL [facility] Immature granulocytes/100 WBC (Bld) 0.6 % 0.0 - 2.0 % [facility] Interpretation and review of laboratory results Abnormal [facility] Lymphocytes (Bld) [#/Vol] 2 10*3/uL 1.0 - 4.3 10*3/uL [facility] Lymphocytes/100 WBC (Bld) 10 % Low 15.0 - 45.0 % [facility] MCH (RBC) [Entitic mass] 30.5 pg 26.0 - 34.0 pg [facility] MCHC (RBC) [Mass/Vol] 34.1 % 30.5 - 36.0 % [facility] MCV (RBC) [Entitic vol] 89.2 fL 77.0 - 99.0 fL [facility] Monocytes (Bld) [#/Vol] 1.1 10*3/uL High 0.0 - 0.9 10*3/uL [facility] Monocytes/100 WBC (Bld) 5.4 % 5.0 - 13.0 % [facility] Neutrophils (Bld) [#/Vol] 16.8 10*3/uL High 1.8 - 7.5 10*3/uL [facility] Neutrophils/100 WBC (Bld) 83.5 % High 38.0 - 82.0 % [facility] Nucleated RBC/100 WBC (Bld) [Ratio] 0 % [facility] Platelet mean volume (Bld) [Entitic vol] 10.5 fL 9.0 - 12.7 fL [facility] Platelets (Bld) [#/Vol] 285 10*3/uL 140 - 440 10*3/uL [facility] RBC (Bld) [#/Vol] 2.79 10*6/uL Low 3.80 - 5.2 0 10*6/uL [facility] WBC (Bld) [#/Vol] 20.1 10*3/uL High 3.6 - 10.7 10*3/uL [facility] Hemoglobin (Bld) [Mass/Vol]O rdered By: Adrienne Bradshaw on 01-20-2024 Hematocrit (Bld) [Volume fraction] 24.7 % Low 35.0 - 47.0 % [facility] Interpretation and review of laboratory results Abnormal [facility] Hemoglobin (Bld) [Mass/Vol]o n 01-20-2024 Hematocrit (Bld) [Volume fraction] 21.3 % Low 35.0 - 47.0 % [facility] Interpretation and review of laboratory results Abnormal [facility] Hematocrit (Bld) [Volume fraction] 23.4 % Low 35.0 - 47.0 % [facility] Interpretation and review of laboratory results Abnormal [facility] Hemoglobin (Bld) [Mass/Vol]O rdered By: Andre Ervin on 01-20-2024 Hematocrit (Bld) [Volume fraction] 28.4 % Low 35.0 - 47.0 % [facility] Interpretation and review of laboratory results Abnormal [facility] - Chemistry and C hemistry - challengeon 01-20-2024 Magnesium [Mass/Vol] 2 mg/dL 1.6 - 2 .3 mg/dL [facility] Laboratory - Hematology and Cell countsOrdered By: Adrienne Bradshaw on 01-20-2024 Hemoglobin (Bld) [Mass/Vol] 8.3 g/dL Low 11.7 - 16.0 g/dL [facility] Laboratory - Hematology and Cell countson 01-20-2024 Hemoglobin (Bld) [Mass/Vol] 7.3 g/dL Low 11.7 - 16.0 g/dL [facility] Hemoglobin (Bld) [Mass/Vol] 7.9 g/dL Low 11.7 - 16.0 g/dL [facility] Laboratory - Hematology and Cell countsOrdered By: Andre Ervin on 01-20-2024 Hemoglobin (Bld) [Mass/Vol] 9.5 g/dL Low 11.7 - 16.0 g/dL [facility] Magnesium [Mass/Vol]on 01-19 Interpretation and review of laboratory results Normal [facility] No Panel InformationOrdered By: Candis Andrade on 01-20-2024 [facility] Work Phone: No Panel InformationOrdered By: Link Alaniz on 01-20-2024 P [place] 88 degrees [facility] UT Interval 124 ms [employer] Work Phone: QRS [place] 33 degrees [employer] Work Phone: QRSD Interval 76 ms [employer] Work Phone: QT Interval 348 ms [employer] Work Phone: QTC Interval 455 ms [employer] Work Phone: T Wave [place] 60 degrees [employer] Work Phone: [employer] Work Phone: No Panel Informationon 01-19 Sinus tachycardia Consider left ventricular hypertrophy Electronically Signed On 01-20-2024 08:04:49 EDT by Link Wang MD - 01/20/2024 IMPRESSION: Sinus tachycardia Consider left ventricular hypertrophy Electronically Signed On 01-20-2024 08:04:49 EDT by Link Alaniz [employer] No acute abnormality . Report Dictated on Electronically Signed By: Honorio Grande MD Electronically Signed Date/Time: 01/20/2024 8:00 AM EDT [facility] Patient Name: APOORVA GONZALEZ : 1950 Exam Date/Time: 01/20/2024 07:56 Procedure: XR FOREARM 2 VIEWS LEFT Ordering Provider: DELGADO CALEB Reason For Exam: Recent fall; r/o fx LEFT FOREARM: CLINICAL INDICATION: Fall injury with pain TECHNIQUE: AP and Lateral COMPARISON: None FINDINGS: There is no evidence for fracture or dislocation. Osteopenia is noted. No bone lesion is identified. Elongated soft tissue calcification present posterior to the proximal ulna. Surgical clips also noted in the antecubital fossa.. [facility] Honorio Garnde MD - 01/20/2024 Patient Name: APOORVA GONZALEZ : 1950 Exam Date/Time: 01/20/2024 07:56 Procedure: XR FOREARM 2 VIEWS LEFT Ordering Provider: DELGADO CALEB Reason For Exam: Recent fall; r/o fx LEFT FOREARM: CLINICAL INDICATION: Fall injury with pain TECHNIQUE: AP and Lateral COMPARISON: None FINDINGS: There is no evidence for fracture or dislocation. Osteopenia is noted. No bone lesion is identified. Elongated soft tissue calcification present posterior to the proximal ulna. Surgical clips also noted in the antecubital fossa.. IMPRESSION: No acute abnormality. Report Dictated on Electronically Signed By: Honorio Grande MD Electronically Signed Date/Time: 01/20/2024 8:00 AM EDT [facility] Radiology Study observation (narrative) [facility] Phosphate [Moles/Vol]on 01-03 Interpretation and review of laboratory results Abnormal [facility] Phosphate [Mass/Vol] 6.4 mg/dL High 2.5 - 4 .5 mg/dL [facility] RFA Celiac artery Views W co ntrast IAon 01-20-2024 Successful uncomplicated mesenteric arteriogram. Report Dictated on Electronically Signed By: Robson Andrade MD Electronically Signed Date/Time: 01/20/2024 9:37 AM EDT [employer] [facility] Patient Name: APOORVA GONZALEZ : 1950 Exam Date/Time: 01/19/2024 23:19 Procedure: IR ANGIOGRAM MESENTERIC Ordering Provider: KAUR MEJGON Reason For Exam: descending colon bleed CLINICAL HISTORY: Lower GI bleed. Positive CTA angiogram. Suspected bleed of the sigmoid colon Procedures: Mesenteric arteriogram Physician: Dr. Andrade MEDICATIONS: Local lidocaine EBL: Minimal. Contrast: 65 mL Isovue-300 Specimen sent: None COMPLICATIONS: None Fluoroscopy Time: 3.9 minutes Angiographic runs: Four Fluoroscopic spot images: 0 Total Air Kerma (Ka, r): 73 mGy Fluoroscopic saved images were obtained. These images do NOT add additional exposure to ionizing radiation and were captured electronically from the imaging chain. Procedural details: Prior to the procedure red rules were performed which included patient name, date of , and procedure type. All of the risk, benefits, and alternative treatments were explained to the patient and informed consent was obtained and documented. The patient was brought into the interventional radiology suite and placed in a supine position. An audible timeout was performed. The patient's right groin was prepped and draped in the usual sterile fashion. Maximal sterile barrier technique was utilized. All elements of maximal sterile barrier technique were used including a hat, mask, sterile gown, sterile gloves, and a sterile drape. Appropriate hand hygiene using 2 percent chlorhexidine for cutaneous antisepsis was utilized. A sterile ultrasound probe cover and sterile ultrasound gel was utilized. The right common femoral artery was interrogated with ultrasound and found to be widely patent. The overlying subcutaneous tissues were anesthetized using one percent lidocaine. Under direct ultrasound visualization, a 21-gauge micropuncture needle was advanced into the right common femoral artery at the level of the right femoral head. Access was upsized to a 5 Cypriot vascular sheath. Following this, a 0.035 Bentson wire along with a Sim one catheter were advanced into the thoracic aorta and reformed. This was then used the select the SMA. An arteriogram was performed. Following this, the CAILIN was selected. An arteriogram was performed. Following this, all catheters were removed. The arterial sheath was sutured to the patient's skin using 2-0 suture. The patient tolerated the procedure well. There were no immediate complications. FINDINGS: Small rounded area of contrast within the left lower quadrant which is in the same location as the area of extravasation seen on prior CTA. There is no movement of this contrast blush. This may represent a tiny area of hemorrhage however the vessel supplying this area is too small for cannulization. No intervention was performed at this time. [facility] Candis Andrade MD - 01/20/2024 [facility] Name: [facility] 1950 [id number] Exam Date/Time: 01/19/2024 23:19 Procedure: IR ANGIOGRAM MESENTERIC Ordering Provider: KAUR MEJGON Reason For Exam: descending colon bleed CLINICAL HISTORY: Lower GI bleed. Positive CTA angiogram. Suspected bleed of the sigmoid colon Procedures: Mesenteric arteriogram Physician: Dr. Andrade MEDICATIONS: Local lidocaine EBL: Minimal. Contrast: 65 mL Isovue-300 Specimen sent: None COMPLICATIONS: None Fluoroscopy Time: 3.9 minutes Angiographic runs: Four Fluoroscopic spot images: 0 Total Air Kerma (Ka, r): 73 mGy Fluoroscopic saved images were obtained. These images do NOT add additional exposure to ionizing radiation and were captured electronically from the imaging chain. Procedural details: Prior to the procedure red rules were performed which included patient name, date of , and procedure type. All of the risk, benefits, and alternative treatments were explained to the patient and informed consent was obtained and documented. The patient was brought into the interventional radiology suite and placed in a supine position. An audible timeout was performed. The patient's right groin was prepped and draped in the usual sterile fashion. Maximal sterile barrier technique was utilized. All elements of maximal sterile barrier technique were used including a hat, mask, sterile gown, sterile gloves, and a sterile drape. Appropriate hand hygiene using 2 percent chlorhexidine for cutaneous antisepsis was utilized. A sterile ultrasound probe cover and sterile ultrasound gel was utilized. The right common femoral artery was interrogated with ultrasound and found to be widely patent. The overlying subcutaneous tissues were anesthetized using one percent lidocaine. Under direct ultrasound visualization, a 21-gauge micropuncture needle was advanced into the right common femoral artery at the level of the right femoral head. Access was upsized to a 5 Cypriot vascular sheath. Following this, a 0.035 Bentson wire along with a Vendly one catheter were advanced into the thoracic aorta and reformed. This was then used the select the SMA. An arteriogram was performed. Following this, the CAILIN was selected. An arteriogram was performed. Following this, all catheters were removed. The arterial sheath was sutured to the patient's skin using 2-0 suture. The patient tolerated the procedure well. There were no immediate complications. FINDINGS: Small rounded area of contrast within the left lower quadrant which is in the same location as the area of extravasation seen on prior CTA. There is no movement of this contrast blush. This may represent a tiny area of hemorrhage however the vessel supplying this area is too small for cannulization. No intervention was performed at this time. IMPRESSION: Successful uncomplicated mesenteric arteriogram. Report Dictated on Electronically Signed By: Robson Andrade MD Electronically Signed Date/Time: 01/20/2024 9:37 AM EDT [employer] Vital signsOrdered By: Link darden on 01-20-2024 Heart rate 103 /min bpm [employer] Work Phone: Blood type and Crossmatch pa kojo (Bld)on 01-19-2024 ABO group Nom (Bld) O [facility] [facility] antibody screen GEL Ql Negative [facility] D Ag Ql (RBC) Positive [facility] CBC W Auto Differential pane l (Bld)on 01-19-2024 Basophils (Bld) [#/Vol] 0.1 10*3/uL 0.0 - 0.2 10*3/uL [facility] Basophils/100 WBC (Bld) 0.6 % 0.0 - 2.0 % [facility] Eosinophils (Bld) [#/Vol] 0.1 10*3/uL 0.0 - 0.5 10*3/uL [facility] Eosinophils/100 WBC (Bld) 0.4 % 0.0 - 6.0 % [facility] Erythrocyte distribution width (RBC) [Ratio] 16.7 % High 11.5 - 15.0 % [facility] Hematocrit (Bld) [Volume fraction] 24.4 % Low 35.0 - 47.0 % [facility] Hemoglobin (Bld) [Mass/Vol] 7.7 g/dL Low 11.7 - 16.0 g/dL [facility] Immature granulocytes (Bld) [#/Vol] 0.1 10*3/uL High NINF - 0.1 10*3/uL [facility] Immature granulocytes/100 WBC (Bld) 0.4 % 0.0 - 2.0 % [facility] Interpretation and review of laboratory results Abnormal [facility] IPF 2 [facility] Lymphocytes (Bld) [#/Vol] 1.8 10*3/uL 1.0 - 4.3 10*3/uL [facility] Lymphocytes/100 WBC (Bld) 11.1 % Low 15.0 - 45.0 % [facility] MCH (RBC) [Entitic mass] 29.5 pg 26.0 - 34.0 pg [facility] MCHC (RBC) [Mass/Vol] 31.6 % 30.5 - 36.0 % [facility] MCV (RBC) [Entitic vol] 93.5 fL 77.0 - 99.0 fL [facility] Monocytes (Bld) [#/Vol] 1.1 10*3/uL High 0.0 - 0.9 10*3/uL [facility] Monocytes/100 WBC (Bld) 6.9 % 5.0 - 13.0 % [facility] Neutrophils (Bld) [#/Vol] 12.8 10*3/uL High 1.8 - 7.5 10*3/uL [facility] Neutrophils/100 WBC (Bld) 80.6 % 38.0 - 82.0 % [facility] Nucleated RBC/100 WBC (Bld) [Ratio] 0 % [facility] Platelet mean volume (Bld) [Entitic vol] 10.7 fL 9.0 - 12.7 fL [facility] Platelets (Bld) [#/Vol] 465 10*3/uL High 140 - 440 10*3/uL [facility] RBC (Bld) [#/Vol] 2.61 10*6/uL Low 3.80 - 5.2 0 10*6/uL [facility] WBC (Bld) [#/Vol] 15.9 10*3/uL High 3.6 - 10.7 10*3/uL [facility] CT Abdomen and Pelvis W cont rast Indu 01-19-2024 Descending colon active bleeding. An element of diverticulitis possible. DTR Dr Kaur Report Dictated on Electronically Signed By: Jacob Alcaraz MD Electronically Signed Date/Time: 01/19/2024 7:31 PM EDT [employer] [facility] 1950 [id number] Exam Date/Time: 01/19/2024 19:20 Procedure: CT ABDOMEN PELVIS ANGIOGRAM W AND/OR WO IV CONTRAST Ordering Provider: KAUR MEJGON Reason For Exam: GI bleed, lower Indication: GI bleeding. FINDINGS: Unenhanced abdomen and enhanced abdomen with 75 mL Isovue 370 performed. Dose reduction and automated exposure control utilized. Lung bases are grossly clear. No free air seen. Increased stool within bowel suspicious for constipation. Mild infiltration adjacent to sigmoid colon. Diverticula noted. No convincing pneumatosis or abscess or obstruction. Appendix not confidently seen. Atrophic kidneys. No convincing active disease of the liver, gallbladder pancreas or spleen. Atherosclerotic calcifications of the aorta noted. No convincing dissection or acute stenosis. There is extravasation into the ascending colon. [employer] Jacob Alcaraz MD - 01/19/2024 [facility] Name: [facility] : 1950 [id number] Exam Date/Time: 01/19/2024 19:20 Procedure: CT ABDOMEN PELVIS ANGIOGRAM W AND/OR WO IV CONTRAST Ordering Provider: KAUR MEJGON Reason For Exam: GI bleed, lower Indication: GI bleeding. FINDINGS: Unenhanced abdomen and enhanced abdomen with 75 mL Isovue 370 performed. Dose reduction and automated exposure control utilized. Lung bases are grossly clear. No free air seen. Increased stool within bowel suspicious for constipation. Mild infiltration adjacent to sigmoid colon. Diverticula noted. No convincing pneumatosis or abscess or obstruction. Appendix not confidently seen. Atrophic kidneys. No convincing active disease of the liver, gallbladder pancreas or spleen. Atherosclerotic calcifications of the aorta noted. No convincing dissection or acute stenosis. There is extravasation into the ascending colon. IMPRESSION: Descending colon active bleeding. An element of diverticulitis possible. DTR Dr Kaur Report Dictated on Electronically Signed By: Jacob Alcaraz MD Electronically Signed Date/Time: 01/19/2024 7:31 PM EDT [facility] Radiology Study observation (narrative) [facility] CT Abdomen and Pelvis W cont rast IVOrdered By: Jacob Alcaraz on 01-19-2024 [facility] Work Phone: Comprehensive metabolic 1998 panelon 01-19-2024 Albumin [Mass/Vol] 4 g/dL 3.5 - 5.0 g/dL [facility] ALP [Catalytic activity/Vol] 88 U/L 38 - 126 U/L [facility] ALT [Catalytic activity/Vol] 14 U/L 0 - 34 U/L [facility] Anion gap [Moles/Vol] 13 mmol/L 3 - 13 mmol/L [facility] AST [Catalytic activity/Vol] 23 U/L 15 - 46 U/L [facility] Bilirubin [Mass/Vol] 0.5 mg/dL 0.2 - 1 .3 mg/dL [facility] Calcium [Mass/Vol] 8.7 mg/dL 8.4 - 10. 4 mg/dL [facility] Chloride [Moles/Vol] 92 mmol/L Low 98 - 10 7 mmol/L [facility] CO2 [Moles/Vol] 30 mmol/L 22 - 30 mmol/L [facility] Creatinine [Mass/Vol] 7.7 mg/dL High 0.52 - 1.04 mg/dL [facility] GFR/1.73 sq M.predicted (S/P/Bld) [Vol rate/Area] 5.1 mL/min Low - PINF [facility] Comment on above: Calculation based on the Chronic Kidney Disease Epidemiology Collaboration (CKD-EPI) equation refit without adjustment for race Glucose [Mass/Vol] 146 mg/dL High 70 - 100 mg/dL [facility] Interpretation and review of laboratory results Abnormal [facility] Potassium [Moles/Vol] 4.9 mmol/L 3.5 - 5.1 mmol/L [facility] Protein [Mass/Vol] 7 g/dL 6.3 - 8.2 g/dL [facility] Sodium [Moles/Vol] 135 mmol/L 135 - 145 mmol/L [facility] Urea nitrogen [Mass/Vol] 47 mg/dL High 7 - 17 mg/dL [facility] Laboratory - Chemistry and C hemistry - challengeon 01-19-2024 Troponin I.cardiac [Mass/Vol] ng/mL NINF - 0.034 ng/mL [facility] Laboratory - Coagulationon 1 aPTT Coag (PPP) [Time] 22.2 s 20.0 - 30.5 s [facility] INR Coag (PPP) [Relative time] 1 {INR} 0.9 - 1.1 [facility] Comment on above: Recommended Anticoag ulant Therapy: SEE BELOW ----- INR of 2.0 - 3.0 : - Prophylaxis of Venous Thrombosis (high-risk surgery) - Treatment of Venous Thrombosis - Treatment of Pulmonary Embolism (Includes tissue heart valves, Acute Myocardial Infarction to prevent systemic embolism, Valvular Heart Disease, and Atrial Fibrillation) ----- INR of 2.5 - 3.5 : - Mechanical Prosthetic Valves (high risk) - If oral anticoagulant therapy is used to prevent Myocardial Infarction PT Coag (Bld) [Time] 11 s 9.0 - 12.0 s [facility] No Panel Informationon 01-18 Blood Expiration Date [id number] [facility] Crossmatch interpretation COMP [facility] Dispense Status Transfused [facility] Product Blood Type 5100 [facility] PRODUCT CODE [id number] [facility] Unit ABO O [facility] Unit Number [id number] [facility] Unit Number [id number] [facility] Unit RH Positive [facility] Unit Volume 300 mL [facility] Interpretation and review of laboratory results Normal [facility] RFA Celiac artery Views W co ntrast IAon 01-19-2024 Radiology Study observation (narrative) [facility] Troponin I.cardiac [Mass/Vol ]on 01-19-2024 Interpretation and review of laboratory results Normal [facility] Patients with high levels of Biotin oral intake (ie >5 mg/day) may have falsely decreased Troponin levels. [facility] Renal function 2000 panelOrd ered By: Cathy Salinas on 08-09-2023 Albumin [Mass/Vol] 4.8 g/dL 3.5 - 5.0 g/dL [facility] Anion gap [Moles/Vol] 15 mmol/L High 3 - 13 mmol/L [facility] Calcium [Mass/Vol] 9.5 mg/dL 8.4 - 10. 4 mg/dL [facility] Chloride [Moles/Vol] 99 mmol/L 98 - 10 7 mmol/L [facility] CO2 [Moles/Vol] 21 mmol/L Low 22 - 30 mmol/L [facility] Creatinine [Mass/Vol] 9.07 mg/dL High 0.52 - 1.04 mg/dL [facility] GFR/1.73 sq M.predicted MDRD (S/P/Bld) [Vol rate/Area] 4.2 mL/min/{1.73_m2} Low - PINF [facility] Comment on above: Calculation based on the Chronic Kidney Disease Epidemiology Collaboration (CKD-EPI) equation refit without adjustment for race Glucose [Mass/Vol] 91 mg/dL 70 - 100 mg/dL [facility] Interpretation and review of laboratory results Abnormal [facility] Phosphate [Mass/Vol] 6.9 mg/dL High 2.5 - 4 .5 mg/dL [facility] Potassium [Moles/Vol] 6.1 mmol/L Critically high 3.5 - 5.1 mmol/L [facility] Sodium [Moles/Vol] 135 mmol/L 135 - 145 mmol/L [facility] Urea nitrogen [Mass/Vol] 65 mg/dL High 7 - 17 mg/dL [facility] Basic metabolic 1998 panelon 03-03-2023 Anion gap [Moles/Vol] 15 mmol/L High 3 - 13 mmol/L [facility] Calcium [Mass/Vol] 9.4 mg/dL 8.4 - 10. 4 mg/dL [facility] Chloride [Moles/Vol] 91 mmol/L Low 98 - 10 7 mmol/L [facility] CO2 [Moles/Vol] 28 mmol/L 22 - 30 mmol/L [facility] Creatinine [Mass/Vol] 6.25 mg/dL High 0.52 - 1.04 mg/dL [facility] GFR/1.73 sq M.predicted MDRD (S/P/Bld) [Vol rate/Area] 6.7 mL/min/{1.73_m2} Low - PINF [facility] Comment on above: Calculation based on the Chronic Kidney Disease Epidemiology Collaboration (CKD-EPI) equation refit without adjustment for race Glucose [Mass/Vol] 89 mg/dL 70 - 100 mg/dL [facility] Interpretation and review of laboratory results Abnormal [facility] Potassium [Moles/Vol] 4.3 mmol/L 3.5 - 5.1 mmol/L [facility] Sodium [Moles/Vol] 135 mmol/L 135 - 145 mmol/L [facility] Urea nitrogen [Mass/Vol] 33 mg/dL High 7 - 17 mg/dL [facility] CBC W Auto Differential pane l (Bld)Ordered By: Rudy Jacobs on 03-03-2023 Basophils (Bld) [#/Vol] 0.1 10*3/uL 0.0 - 0.2 10*3/uL [facility] Basophils/100 WBC (Bld) 1.4 % 0.0 - 2.0 % [facility] Eosinophils (Bld) [#/Vol] 0.3 10*3/uL 0.0 - 0.5 10*3/uL [facility] Eosinophils/100 WBC (Bld) 4.0 % 1.0 - 6.0 % [facility] Erythrocyte distribution width (RBC) [Ratio] 15.7 % High 11.5 - 14.5 % [facility] Hematocrit (Bld) [Volume fraction] 32.3 % Low 35.0 - 47.0 % [facility] Hemoglobin (Bld) [Mass/Vol] 10.6 g/dL Low 11.7 - 16.0 g/dL [facility] Interpretation and review of laboratory results Abnormal [facility] Lymphocytes (Bld) [#/Vol] 2.2 10*3/uL 1.0 - 4.3 10*3/uL [facility] Lymphocytes/100 WBC (Bld) 25.4 % 20.0 - 40.0 % [facility] MCH (RBC) [Entitic mass] 31.6 pg 26.0 - 34.0 pg [facility] MCHC (RBC) [Mass/Vol] 32.7 % 32.0 - 36.0 % [facility] MCV (RBC) [Entitic vol] 96.7 fL 80.0 - 98.0 fL [facility] Monocytes (Bld) [#/Vol] 0.8 10*3/uL 0.0 - 0.8 10*3/uL [facility] Monocytes/100 WBC (Bld) 8.8 % 2.0 - 10.0 % [facility] Neutrophils (Bld) [#/Vol] 5.2 10*3/uL 1.8 - 7.0 10*3/uL [facility] Neutrophils/100 WBC (Bld) 60.4 % 40.0 - 80.0 % [facility] Nucleated RBC/100 WBC (Bld) [Ratio] 0.0 % [facility] Platelet mean volume (Bld) [Entitic vol] 7.8 fL 7.4 - 12.4 fL [facility] Platelets (Bld) [#/Vol] 351 10*3/uL 140 - 440 10*3/uL [facility] RBC (Bld) [#/Vol] 3.34 10*6/uL Low 3.8 - 5.20 10*6/uL [facility] WBC (Bld) [#/Vol] 8.6 10*3/uL 3.6 - 10.7 10*3/uL [facility] No Panel Informationon 03-03 P [place] 56 degrees [facility] UT Interval 118 ms [facility] QRS [place] 13 degrees [facility] QRSD Interval 80 ms [facility] QT Interval 374 ms [facility] QTC Interval 454 ms [facility] T Wave [place] 57 degrees [facility] Sinus rhythm Left ventricular hypertrophy Normal [place] No ST or T wave changes No significant changes compared to previous Electronically Signed On 03-03-2023 10:54:21 EST by Balta Wang CV Balta Solo MD - 03/03/2023 IMPRESSION: Sinus rhythm Left ventricular hypertrophy Normal [place] No ST or T wave changes No significant changes compared to previous Electronically Signed On 03-03-2023 10:54:21 EST by Balta Wang [facility] Troponin - One Time order ON [place] 03-03-2023 Troponin I.cardiac [Mass/Vol] ng/mL NINF - 0.034 ng/mL [facility] Troponin I.cardiac [Mass/Vol ]on 03-03-2023 Interpretation and review of laboratory results Normal [facility] Patients with high levels of Biotin oral intake (ie >5 mg/day) may have falsely decreased Troponin levels. [facility] Vital signson 03-03-2023 Heart rate 88 /min bpm [facility] DBT Breast - bilateral scree ningon 01-12-2023 No mammographic evidence of malignancy. ASSESSMENT: Category 1 Negative RECOMMENDATION: Routine screening mammogram in 1 year. Bilateral CANCER RISK ASSESSMENT: This risk assessment is based on patient provided information collected in a risk survey taken at the time of this examination. LIFETIME BREAST CANCER RISK: [place]: 3.33% - If greater than or equal to 20%, consider annual mammogram and annual screening Breast MRI or follow up in high risk clinic. Is the patient at elevated risk based on the HBOC criteria? NCCN HBOC Guidelines: 0% (Hereditary Breast and Ovarian Cancer) - If 100%, consider genetic counseling and testing with high risk follow up. Is the patient at elevated risk based on the Zhang Syndrome criteria? NCCN Zhang: 0% - If 100%, consider genetic counseling and testing with high risk follow up. Report Dictated on Electronically Signed By: Nalini Márquez MD Electronically Signed Date/Time: 01/12/2023 11:[address] [facility] [employer] Patient Name: APOORVA GONZALEZ : 1950 Exam Date/Time: 01/12/2023 11:31 Procedure: BI MAMMOGRAM SCREENING TOMOSYNTHESIS BILATERAL Ordering Provider: GROVE BENSON Reason For Exam: Breast cancer screening, average or low risk (Female >= 18y) Image views: 2D Bilateral CC and MLO views were acquired. 3D Bilateral CC and MLO views were acquired. Images were reviewed with CAD. Markings on images: BB's = Nipples; skin lesions Open [place] = Palpable Line = Scar COMPARISON: 11/28/2020 and 09/03/2016 TISSUE DENSITY: BIRADS C - The breast tissue is heterogeneously dense, which could obscure underlying abnormalities. FINDINGS: No suspicious masses, architectural distortions or suspiciously clustered microcalcifications are identified. There is no evidence of skin thickening or nipple retraction. There are no significant changes when compared with prior studies. [facility] Nalini Márquez MD - 01/12/2023 [facility] Name: [facility]OR[facility] : 1950 [id number] Exam Date/Time: 01/12/2023 11:31 Procedure: BI MAMMOGRAM SCREENING TOMOSYNTHESIS BILATERAL Ordering Provider: GROVE BENSON Reason For Exam: Breast cancer screening, average or low risk (Female >= 18y) Image views: 2D Bilateral CC and MLO views were acquired. 3D Bilateral CC and MLO views were acquired. Images were reviewed with CAD. Markings on images: BB's = Nipples; skin lesions Open [place] = Palpable Line = Scar COMPARISON: 11/28/2020 and 09/03/2016 TISSUE DENSITY: BIRADS C - The breast tissue is heterogeneously dense, which could obscure underlying abnormalities. FINDINGS: No suspicious masses, architectural distortions or suspiciously clustered microcalcifications are identified. There is no evidence of skin thickening or nipple retraction. There are no significant changes when compared with prior studies. IMPRESSION: No mammographic evidence of malignancy. ASSESSMENT: Category 1 Negative RECOMMENDATION: Routine screening mammogram in 1 year. Bilateral CANCER RISK ASSESSMENT: This risk assessment is based on patient provided information collected in a risk survey taken at the time of this examination. LIFETIME BREAST CANCER RISK: [place]: 3.33% - If greater than or equal to 20%, consider annual mammogram and annual screening Breast MRI or follow up in high risk clinic. Is the patient at elevated risk based on the HBOC criteria? NCCN HBOC Guidelines: 0% (Hereditary Breast and Ovarian Cancer) - If 100%, consider genetic counseling and testing with high risk follow up. Is the patient at elevated risk based on the Zhang Syndrome criteria? NCCN Zhang: 0% - If 100%, consider genetic counseling and testing with high risk follow up. Report Dictated on Electronically Signed By: Nalini Márquez MD Electronically Signed Date/Time: 01/12/2023 11:44 AM EDT [facility] Radiology Study observation (narrative) [facility] DBT Breast - bilateral scree ningOrdered By: Nalini Márquez on 01-12-2023 [facility] Work Phone: XR Chest Single viewon 10-01 FINDINGS AND IMPRESSION: SUPPORT DEVICES: None OSSEOUS STRUCTURES: Unremarkable. HEART AND MEDIASTINUM: The cardiomediastinal silhouette appears unchanged from the prior exam. LUNGS AND PLEURA: The lungs are clear. No sizable pleural effusion. Report Dictated on Electronically Signed By: London Hollis Electronically Signed Date/Time: 10/01/2022 1:42 PM EDT [employer] Patient Name: APOORVA GONZALEZ : 1950 Exam Date/Time: 10/01/2022 13:12 Procedure: XR CHEST 1 VIEW Ordering Provider: HILARIO DAVID Reason For Exam: vasc cath pulled from right subclavian yesterday - bleeding today CHEST CLINICAL INDICATION: Hemorrhage, recent vascular catheter removal TECHNIQUE: AP portable chest COMPARISON: 02/26/2022 [facility] London Hollis MD - 10/01/2022 Patient Name: APOORVA GONZALEZ : 1950 Exam Date/Time: 10/01/2022 13:12 Procedure: XR CHEST 1 VIEW Ordering Provider: HILARIO DAVID Reason For Exam: vasc cath pulled from right subclavian yesterday - bleeding today CHEST CLINICAL INDICATION: Hemorrhage, recent vascular catheter removal TECHNIQUE: AP portable chest COMPARISON: 02/26/2022 IMPRESSION: FINDINGS AND IMPRESSION: SUPPORT DEVICES: None OSSEOUS STRUCTURES: Unremarkable. HEART AND MEDIASTINUM: The cardiomediastinal silhouette appears unchanged from the prior exam. LUNGS AND PLEURA: The lungs are clear. No sizable pleural effusion. Report Dictated on Electronically Signed By: London Hollis Electronically Signed Date/Time: 10/01/2022 1:42 PM EDT [facility] Radiology Study observation (narrative) [facility] XR Chest Single viewOrdered By: London Hollis on 10-01-2022 [facility] Work Phone: RF Guidance for removal of t unneled CV catheteron 09-30-2022 Removal of right-sided tunneled central venous catheter. PROCEDURE SUMMARY: - Tunneled central venous catheter removal - Additional procedure(s): None PROCEDURE DETAILS: Pre-procedure Consent: Informed consent for the procedure including risks, benefits and alternatives was obtained and time-out was performed prior to the procedure. Preparation: The site was prepared and draped using maximal sterile barrier technique including cutaneous antisepsis. Anesthesia/sedation Level of anesthesia/sedation: No sedation Catheter removal Local anesthesia was administered. The catheter was removed with a combination of traction and blunt dissection. Closure Hemostasis was achieved with manual compression. Sterile dressing(s) applied. Radiation Dose None Additional Details Additional description of procedure: None Equipment details: None Specimens removed: Tunneled central venous catheter. Estimated blood loss (mL): Less than 10 Report Dictated on Electronically Signed By: Jovan Glynn Electronically Signed Date/Time: 09/30/2022 11:26 AM EDT [employer] Patient Name: APOORVA GONZALEZ : 1950 Exam Date/Time: 09/30/2022 10:19 Procedure: IR CVC TUNNELED CATHETER REMOVAL Ordering Provider: MEZA OLGA Reason For Exam: n18.6 PROCEDURE: Tunneled central venous catheter removal Procedural Personnel Attending physician(s): Jovna Glynn MD Indication: Catheter no longer needed Additional clinical history: None Complications: No immediate complications. [facility] Jovan Glynn MD - 09/30/2022 Patient Name: APOORVA GONZALEZ : 1950 Exam Date/Time: 09/30/2022 10:19 Procedure: IR CVC TUNNELED CATHETER REMOVAL Ordering Provider: MEZA OLGA Reason For Exam: n18.6 PROCEDURE: Tunneled central venous catheter removal Procedural Personnel Attending physician(s): Jovan Glynn MD Indication: Catheter no longer needed Additional clinical history: None Complications: No immediate complications. IMPRESSION: Removal of right-sided tunneled central venous catheter. PROCEDURE SUMMARY: - Tunneled central venous catheter removal - Additional procedure(s): None PROCEDURE DETAILS: Pre-procedure Consent: Informed consent for the procedure including risks, benefits and alternatives was obtained and time-out was performed prior to the procedure. Preparation: The site was prepared and draped using maximal sterile barrier technique including cutaneous antisepsis. Anesthesia/sedation Level of anesthesia/sedation: No sedation Catheter removal Local anesthesia was administered. The catheter was removed with a combination of traction and blunt dissection. Closure Hemostasis was achieved with manual compression. Sterile dressing(s) applied. Radiation Dose None Additional Details Additional description of procedure: None Equipment details: None Specimens removed: Tunneled central venous catheter. Estimated blood loss (mL): Less than 10 Report Dictated on Electronically Signed By: Jovan Glynn Electronically Signed Date/Time: 09/30/2022 11:26 AM EDT [facility] Radiology Study observation (narrative) [facility] RF Guidance for removal of t unneled CV catheterOrdered By: Jovan Glynn on 09-30-2022 [facility] Work Phone: Laboratory - Chemistry and C hemistry - challengeon 08-07-2022 Potassium [Moles/Vol] 4.5 mmol/L 3.5 - 5.1 mmol/L [facility] Potassium [Moles/Vol]on Interpretation and review of laboratory results Normal [facility] US VEIN MAPPING UPPER BILon 06-03-2022 US VEIN MAPPING UPPER ARIEL * * *Final Report* * * DATE OF EXAM: Jun 03 2022 2:28PM LETITIA 1085 - US VEIN MAPPING UPPER ARIEL / PROCEDURE REASON: N18.6 Z01.818 * * * * Physician Interpretation * * * * BILATERAL UPPER EXTREMITY DEEP VENOUS DUPLEX DOPPLER ULTRASOUND CLINICAL HISTORY: Chronic kidney disease. COMPARISON: None ENCOUNTER: Not applicable TECHNIQUE: Nix scale ultrasound with and without compression, where accessible, color and spectral Doppler with augmentation of the bilateral upper extremity veins. Measurements were obtained of the upper arm veins as well as the brachial, radial and ulnar arteries. FINDINGS: Right subclavian vein not well-visualized, due to overlying bandages. There is no evidence of acute deep venous thrombosis within the left subclavian, or the internal jugular, axillary, basilic, cephalic or brachial veins, bilaterally. The veins are compressible bilaterally. Right arm vein measurements: Cephalic: Upper- 1 mm diameter, 6 mm depth Mid- 1 mm diameter, 3 mm depth Lower- 1 mm diameter, 1 mm depth Basilic: Upper- 3 mm diameter, 3 mm depth Mid- 2 mm diameter, 10 mm depth Lower- 3 mm diameter, 8 mm depth Brachial: Upper- 8 mm diameter, 5 mm depth Mid- 3 mm diameter, noted mm depth Lower- 3 mm diameter, 8 mm depth Largest radial side vein: Upper- 1 mm diameter, 7 mm depth Mid- 1 mm diameter, 7 mm depth Lower- 1 mm diameter, 5 mm depth Largest ulnar side vein: Upper- 1 mm diameter, 12 mm depth Mid- 1 mm diameter, 8 mm depth Lower- 1 mm diameter, 7 mm depth Brachial artery: 4 mm Radial artery: 2 mm Ulnar artery: 1 mm Left arm vein measurements Cephalic: Upper- 1 mm diameter, 6 mm depth Mid- 1 mm diameter, 3 mm depth Lower- 1 mm diameter, 3 mm depth Basilic: Upper- 1 mm diameter, 6 mm depth Mid- 1 mm diameter, 5 mm depth Lower- 2 mm diameter, 6 mm depth Brachial: Upper- 2 mm diameter, 7 mm depth Mid- 2 mm diameter, 7 mm depth Lower- 2 mm diameter, 7 mm depth Largest radial side vein: Upper- 1 mm diameter, 7 mm depth Mid- 1 mm diameter, 4 mm depth Lower- 1 mm diameter, 5 mm depth Largest ulnar side vein: Upper- 2 mm diameter, 18 mm depth Mid- 1 mm diameter, 7 mm depth Lower- 1 mm diameter, 3 mm depth Brachial artery: 5 mm Radial artery: 2 mm Ulnar artery: 1 mm IMPRESSION: RIGHT SUBCLAVIAN VEIN NOT WELL-VISUALIZED. NO EVIDENCE OF ACUTE THROMBOSIS WITHIN THE DEEP VENOUS SYSTEM OF THE UPPER EXTREMITIES. COMPRESSIBLE UPPER EXTREMITY VEINS BILATERALLY WITH ASSOCIATED MEASUREMENTS DESCRIBED. Profiling Machine Set Up Operator Tool: THU Transcribe Date/Time: Jun 04 2022 7:09A Dictated by : VICTOR MANUEL WRIGHT MD This examination was interpreted and the report reviewed and electronically signed by: VICTOR MANUEL WRIGHT MD on Jun 04 2022 7:17AM EST [id number] Normal [facility] CNCOon 09-11-2021 CNCO Letter Text Normal [facility] CNPNon 12-24-2020 CNPN Telephone (TXCTGL) APOORVA GONZALEZ ([id number]) 1950 F TRN Date Time Provider Department 12/24/20 GRETCHEN DAVID) TXCTGL During your visit today, we recorded the following information about you: Gretchen David Ma 12/24/2020 3:50 PM Signed Left message reminding patient of appointment on 01/01/2021. Callback number was provided. Gretchen Frankie Aguilar Allergies As of Date: 12/24/2020 (No Known Allergies) Date Reviewed: 10/25/2019 Reviewed by: Jose Antonio Adams - Fully Assessed Reason for Visit: Appointment [186] Prescriptions as of 12/24/2020 - amLODIPine-Atorvastati n 10-10 mg per tablet Take 0.5 tablets by mouth once daily. Problem List As Of Date: 12/24/2020 (None) Encounter Status:Closed by FRANKIE AGUILARGRETCHEN on 12/24/20 Normal [facility] MG Breast Tomosynthesis Scr Blon 11-28-2020 MG Breast Tomosynthesis Scr Bl Patient Name: APOORVA GONZALEZ Mammography ACCESSION EXAM DATE/TIME PROCEDURE ORDERING PROVIDER [id number] 11/28/2020 08:55 EDT MG Breast Tomosynthesis CRHISTIANO GROVE S BI Scr CPT code 16680 [id number] Reason For Exam (MG Breast Tomosynthesis BI Scr) screening Report TIME SINCE LAST MAMMOGRAM: Last mammogram was performed 4 years and 3 months ago. REASON FOR EXAM: screening, asymptomatic. PROCEDURE: MG BREAST TOMOSYNTHESIS BL SCR: NOVEMBER 28, 2020 - 2D/3D Procedure 3D Bilateral CC and MLO view(s) were taken. 2D Bilateral CC and MLO view(s) were taken. Prior study comparison: September 03, 2016, bilateral MG breast tomosynthesis bl scr performed at [facility]. TISSUE DENSITY: BIRADS C - The breast tissue is heterogeneously dense, which could obscure underlying abnormalities. . PATIENT CANCER HISTORY: No Personal History of Cancer FAMILY CANCER HISTORY: Maternal Cousin Breast Cancer age 32 FINDINGS: No suspicious masses, architectural distortions or suspiciously clustered microcalcifications are identified. There is no evidence of skin thickening or nipple retraction. There are no significant changes when compared with prior studies. No mammographic evidence of malignancy. Markings on images: BB's = Nipples; skin lesions Open [place] = Palpable Line = Scar 2D digital mammography and tomosynthesis imaging were performed and reviewed with CAD. ASSESSMENT: Category 1 Negative RECOMMENDATION: Routine screening mammogram of both breasts in 1 year. Mammography Report . Report Dictated on Cancer Risk Assessment: This risk assessment is based on patient provided information collected in a risk survey taken at the time of this examination. Lifetime breast cancer risk: Low Risk - If greater than or equal to 20%, consider annual mammogram and annual screening Breast MRI or follow up in high risk clinic. A score of Low Risk indicates a score of less than 20%. Is the patient at elevated risk based on the HBOC criteria? No (Hereditary Breast and Ovarian Cancer) - If yes, consider genetic counseling and testing with high risk follow up. Is the patient at elevated risk based on the Zhang Syndrome criteria? No - If yes, consider genetic counseling and testing with high risk follow up. Final Signed Date and Time: 11/28/2020 1:13 pm Signed by: [facility] C[facility]N Telephone (TXCTGL) APOORVA GONZALEZ ([id number]) 1950 F TRN Date Time Provider Department 09/24/20 MARY ELLIOTTCTGL During your visit today, we recorded the following information about you: Mary Elliott 09/24/2020 3:29 PM Signed Patient called and rescheduled for 01/01/21. Patient verbalized understanding. Mary Ellitot Allergies As of Date: 09/24/2020 (No Known Allergies) Date Reviewed: 10/25/2019 Reviewed by: Jose Antonio Adams - Fully Assessed Reason for Visit: Future Appointment [256] Prescriptions as of 09/24/2020 Sig: AMLODIPINE 10 MG-ATORVASTATIN* Take 0.5 tablets by mouth onc* Problem List As Of Date: 09/24/2020 (None) Encounter Status:Closed by MARY ELLIOTT on 09/24/20 [facility] 09-13-2020 CNPN Telephone (TXCTGL) APOORVA GONZALEZ ([id number]) 1950 F TRN Date Time Provider Department 09/13/20 GRETCHEN DAVID) TXCTGL During your visit today, we recorded the following information about you: Gretchen David Ma 09/13/2020 2:24 PM Signed Left message reminding patient of appointment on 09/25/2020. Call back number was provided. Gretchen David Ma Allergies As of Date: 09/13/2020 (No Known Allergies) Date Reviewed: 10/25/2019 Reviewed by: Jose Antonio Adams - Fully Assessed Reason for Visit: Appointment [186] Prescriptions as of 09/13/2020 Sig: AMLODIPINE 10 MG-ATORVASTATIN* Take 0.5 tablets by mouth onc* Problem List As Of Date: 09/13/2020 (None) Encounter Status:Closed by GRETCHEN DAVID MA on 09/13/20 [facility] [address] BIOPSY RENALon 10-25-2019 CT BIOPSY RENAL Final Report DATE OF EXAM: Oct 25 2019 9:26AM [facility] 2019 - CT BIOPSY RENAL / PROCEDURE REASON: ckd Physician Interpretation CT GUIDED RENAL BIOPSY DATE: 10/25/2019 COMPARISON: None. CLINICAL INDICATION: 69-year-old female with hypertension stage IV chronic kidney disease referred for image guided renal biopsy. TECHNIQUE: A timeout was taken to confirm the patient's identity and correct procedure to be performed. The procedure was discussed with the patient including the risks, benefits and alternatives. Written consent was obtained. The patient was placed in a supine position. Preliminary CT images were acquired. The lower pole of the left kidney was targeted for biopsy. Cutaneous antisepsis and sterile draping were applied to the right back. Local anesthesia was instilled with lidocaine. Under direct CT guidance renal biopsy was performed with an 18-gauge Bard spring-loaded biopsy device. Three passes were made yielding 3 core specimens. Specimen adequacy was confirmed by pathology. Two additional core specimens were then obtained. Postbiopsy CT demonstrated a small perinephric hematoma. Intraservice time (monitoring for procedural sedation - starting with administration of agent and ending when continuous [id number] time ends): Approximately 25 minutes Patient monitoring: I personally supervised and directed an independent trained observer who assisted in monitoring the patient's level of consciousness and physiologic status throughout the procedure. Medication: Versed 1 mg and Fentanyl [address] Dose-Length Product: 259.[address] Dose Reduction Employed: Automated exposure control (AEC) and/or iterative reconstruction was used. IMPRESSION: Technically successful CT-guided renal biopsy. The procedure was complicated by a small left perinephric hematoma. Profiling Machine Set Up Operator Tool: THU Transcribe Date/Time: Oct 25 2019 10:19A Dictated by : JOSE ANTONIO ADAMS MD This examination was interpreted and the report reviewed and electronically signed by: JOSE ANTONIO ADAMS MD on Oct 25 2019 10:23AM EST Normal [facility] Otheron 10-25-2019 [facility] Pathology Miscellaneouson Pathology Miscellaneous Test performed a t [place] [address] NAME: APOORVA GONZALEZ REQUESTING: JOSE ANTONIO ADAMS MD DIAGNOSIS: Kidney: See complete report from [facility]. SPECIMEN: TISSUE FOR SEND-OUT, Medical Kidney EXTERNAL CONSULT, PATHOLOGIST (Electronic signature on file) Signed out: 11/02/2019 16:25 PRINTED: 11/02/2019 Page 1 of 1 Normal [facility] Comment on above: Performed By: #### M ISC #### [place] [address] Surgical Tissue Examon 10-24 Surgical Tissue Exam Test performed at [place] [address] NAME: APOORVA GONZALEZ REQUESTING: JOSE ANTONIO ADAMS MD COPY TO: CHRISTIANO GROVE FINAL DIAGNOSIS: LEFT KIDNEY, CORE BIOPSIES - TISSUE SUBMITTED DIRECTLY TO [facility] FOR FURTHER EVALUATION. PLEASE SEE THEIR SEPARATE REPORT. OPERATIVE PROCEDURE: CT guided renal biopsy CLINICAL INFORMATION: Stage 4 chronic kidney disease GROSS DESCRIPTION: Kidney Received fresh labeled with the patient's name and left kidney are four fragmented cores of light valdovinos tissue which in aggregate measure approximately 1 x 0.3 x 0.1 cm. The tissue is triaged and divided into formalin, Weston's fixative, and glutaraldehyde and submitted directly to [facility] for further evaluation. EDS/sherry EXTERNAL CONSULT, PATHOLOGIST (Electronic signature on file) Signed out: 10/26/2019 08:26 PRINTED: 10/26/2019 Page 1 of 1 Normal [facility] Comment on above: Performed By: #### S URG #### [place] [address] Activated PTTon 10-03-2019 aPTT Coag (Bld) [Time] 27.1 s Normal 23.0-32.4 [facility] Comment on above: Result Comment: Unfr actionated Heparin Therapeutic Ranges: Standard Heparin Nomogram: 53 to 78 seconds (anti-Xa level of 0.3 to 0.7 U/mL) Low Dose/ACS Nomogram: 49 to 67 seconds (anti-Xa level of 0.2 to 0.5 U/mL) Stroke Treatment Nomogram: 49 to 67 seconds (anti-Xa level of 0.2 to 0.5 U/mL) Note: The APTT therapeutic range has been determined for the current lot of laboratory APTT reagent in use throughout the [facility]. Performed By: #### A PTT #### [place] [id number] Hematologyon 10-03-2019 aPTT Coag (PPP) [Time] 27.1 s 23.0 - 32.4 sec [facility] INR Coag (PPP) [Relative time] 0.93 {INR} 0.90 - 1.30 [facility] PT Coag (PPP) [Time] 10.1 s 9.7 - 1 3.0 sec [facility] Hematocrit (Bld) [Volume fraction] 31.6 % Low 34.1 - 44.9 % [facility] Hemoglobin (Bld) [Mass/Vol] 9.9 g/dL Low 11.2 - 15.7 g/dL [facility] MCH (RBC) [Entitic mass] 28.9 pg 25.6 - 32.2 pg [facility] MCV (RBC) [Entitic vol] 92.1 fL 79.4 - 94.8 fl [facility] Platelets (Bld) [#/Vol] 502 thou/cmm High 182 - 369 thou/cmm [facility] RBC (Bld) [#/Vol] 3.43 mil/cmm Low 3.93 - 5.2 2 mil/cmm [facility] WBC (Bld) [#/Vol] 13.18 thou/cmm High 3.98 - 1 0.04 thou/cmm [facility] Hemogramon 10-03-2019 Erythrocyte distribution width (RBC) [Ratio] 13.5 % Normal 11.7-14.4 [facility] Comment on above: Performed By: #### C BC1 #### [facility] [address] [place], [place] [address] Hematocrit (Bld) [Volume fraction] 31.6 % Low 34.1-44.9 [facility] Comment on above: Performed By: #### C BC1 #### [facility] [address] [place], [place] [address] Hemoglobin (Bld) [Mass/Vol] 9.9 g/dL Low 11.2-15.7 [facility] Comment on above: Performed By: #### C BC1 #### [facility] [address] [place], [place] [address] MCH (RBC) [Entitic mass] 28.9 pg Normal 25.6-32.2 [facility] Comment on above: Performed By: #### C BC1 #### [facility] [address] [place], [place] [address] MCHC (RBC) [Mass/Vol] 31.3 % Low 31.6-34.8 [facility] Comment on above: Performed By: #### C BC1 #### [facility] [address] [place], [place] [address] MCV (RBC) [Entitic vol] 92.1 fL Normal 79.4-94.8 [facility] Comment on above: Performed By: #### C BC1 #### [facility] [address] [place], [place] [address] Platelet mean volume (Bld) [Entitic vol] 10.8 fL Normal 9.4-12.3 [facility] Comment on above: Performed By: #### C BC1 #### [facility] [address] [place], [place] [address] Platelets (Bld) [#/Vol] 502 thou/cmm High 182-369 [facility] Comment on above: Performed By: #### C BC1 #### [facility] [address] [place], [place] [address] RBC (Bld) [#/Vol] 3.43 mil/cmm Low 3.93-5.22 [facility] Comment on above: Performed By: #### C BC1 #### [facility] [address] [place], [place] [address] RDW SD 45.1 fl Normal 36.4-46.3 [facility] Comment on above: Performed By: #### C BC1 #### [facility] [address] [place], [place] [address] WBC (Bld) [#/Vol] 13.18 thou/cmm High 3.98-10.04 [facility] Comment on above: Performed By: #### C BC1 #### [facility] [address] [place] [address] Otheron 10-03-2019 Erythrocyte distribution width (RBC) [Entitic vol] 45.1 fL 36.4 - 46.3 fl [facility] Erythrocyte distribution width (RBC) [Ratio] 13.5 % 11.7 - 14.4 % [facility] MCHC (RBC) [Mass/Vol] 31.3 % Low 31.6 - 34.8 % [facility] Platelet mean volume (Bld) [Entitic vol] 10.8 fL 9.4 - 12.3 fl [facility] Protimeon 10-03-2019 INR Coag (PPP) [Relative time] 0.93 {INR} Normal 0.90-1.30 [facility] Comment on above: Result Comment: Haylee min K Antagonist (VKA) Therapeutic Range: INR 2 to 3 (Target INR of 2.5) Note: For patients treated with VKA drugs, such as warfarin, the [employer] 2012 Guideline recommends a therapeutic INR range of 2 to 3 (target INR of 2.5). This recommendation includes high-risk patients with antiphospholipid syndrome with previous arterial or venous thromboembolism, current-generation mechanical or bioprosthetic aortic heart valve replacement. Note: Patients with mechanical aortic valve replacement and additional risk factors for thromboembolic events (atrial fibrillation, previous thromboembolism, LV dysfunction, hypercoagulable conditions) or an older generation mechanical AVR (i.e., ball in-Cage) or any mechanical MVR should have a INR therapeutic range of 2.5 to 3.5 target INR of 3). Nikkitt GH, et al. Chest 2012; 141:7S-47S Joselyn RA, et al. [facility] 2017; 70: 252-289 Performed By: #### P T #### [facility] [address] [place], [place] [address] PT Coag (PPP) [Time] 10.1 s Normal 9.7-13.0 [facility] Comment on above: Performed By: #### P T #### [facility] [address] [place], [place] [address] US RETROPERITONEAL COMPLETEo n 07-24-2019 Patient Name: APOORVA GONZALEZ ---Ultrasound--- Exam Date/Time 07/24/2019 15:50:07 EDT Exam US Retroperitoneal Complete Ordering Physician CHRISTIANO GROVE Accession Number [id number] CPT4 Codes 31504 () Reason For Exam stage 4 kid disease Report RENAL ULTRASOUND CLINICAL INDICATION: Stage IV kidney disease Sonographic images of the bilateral kidneys and bladder were obtained. COMPARISON: None. FINDINGS: The right kidney measures 8.3 cm in longitudinal dimension. Parenchymal echotexture is diffusely increased. No focal lesions are seen. There is no evidence of hydronephrosis or renal calculus. The left kidney measures 9.2 cm in longitudinal dimension. Parenchymal echotexture is diffusely increased. No focal lesions are seen. There is no evidence of hydronephrosis or renal calculus. No mass or fluid collection is seen adjacent to the kidneys. The bladder is grossly unremarkable. IMPRESSION: Both kidneys appear somewhat small in size and demonstrate increased echogenicity of the renal parenchyma, consistent with medical renal disease. No evidence of hydronephrosis or renal calculus is seen. Report Dictated on --- Final --- Dictated: 07/24/2019 3:25 pm Dictating Physician: MD MONSIVAIS JONATHAN R Signed Date and Time: 07/24/2019 3:41 pm Signed by: MD MONSIVAIS JONATHAN R Transcribed Date and Time: 07/24/2019 3:25 [place], [place] Eric, [facility] Incoming Radiology Results From [facility] - 07/24/2019 3:50 PM EDT Patient Name: APOORVA GONZALEZ ---Ultrasound--- Exam Date/Time 07/24/2019 15:50:07 EDT Exam US Retroperitoneal Complete Ordering Physician CHRISTIANO GROVE Accession Number [id number] CPT4 Codes 31709 () Reason For Exam stage 4 kid disease Report RENAL ULTRASOUND CLINICAL INDICATION: Stage IV kidney disease Sonographic images of the bilateral kidneys and bladder were obtained. COMPARISON: None. FINDINGS: The right kidney measures 8.3 cm in longitudinal dimension. Parenchymal echotexture is diffusely increased. No focal lesions are seen. There is no evidence of hydronephrosis or renal calculus. The left kidney measures 9.2 cm in longitudinal dimension. Parenchymal echotexture is diffusely increased. No focal lesions are seen. There is no evidence of hydronephrosis or renal calculus. No mass or fluid collection is seen adjacent to the kidneys. The bladder is grossly unremarkable. IMPRESSION: Both kidneys appear somewhat small in size and demonstrate increased echogenicity of the renal parenchyma, consistent with medical renal disease. No evidence of hydronephrosis or renal calculus is seen. Report Dictated on --- Final --- Dictated: 07/24/2019 3:25 pm Dictating Physician: MD MONSIVAIS JONATHAN R Signed Date and Time: 07/24/2019 3:41 pm Signed by: MD MONSIVAIS JONATHAN R Transcribed Date and Time: 07/24/2019 3:25 [place] Vital Signs Date Time Vital Sign Value Performing Clinician Facility 12-28-2024 10:00-0400 Body temperature 98.71 [degF] Mejgon Natasha DO Work Phone: [facility] 12-28-2024 10:00-0400 Diastolic blood pressure 76 mm[Hg] Mejgon Natasha DO Work Phone: [facility] 12-28-2024 10:00-0400 Heart rate 91 /min jgon Natasha DO Work Phone: [facility] 12-28-2024 10:00-0400 Respiratory rate 14 /min Frankygon Natasha DO Work Phone: [facility] 12-28-2024 10:00-0400 SaO2% (BldA) [Mass fraction] 100 % Frankygon Natasha DO Work Phone: [facility] 12-28-2024 10:00-0400 Systolic blood pressure 162 mm[Hg] Mejgon Natasha DO Work Phone: [facility] 12-20-2024 17:50-0400 Body temperature 98.01 [degF] Mason Munson MD Work Phone: [facility] 12-20-2024 17:50-0400 Diastolic blood pressure 78 mm[Hg] Mason Munson MD Work Phone: [facility] 12-20-2024 17:50-0400 Heart rate 101 /min Mason Munson MD Work Phone: [facility] 12-20-2024 17:50-0400 Respiratory rate 16 /min Mason Munson MD Work Phone: [facility] 12-20-2024 17:50-0400 SaO2% (BldA) [Mass fraction] 98 % Mason Munson MD Work Phone: [facility] 12-20-2024 17:50-0400 Systolic blood pressure 182 mm[Hg] Mason Munson MD Work Phone: [facility] 12-11-2024 20:45-0400 SaO2% (BldA) [Mass fraction] 85.3 % Mason Munson MD Work Phone: [facility] 12-11-2024 10:14-0400 Body mass index (BMI) [Ratio] 19.61 kg/m2 Mason Munson MD Work Phone: [facility] 12-11-2024 10:14-0400 Body weight 52.75 kg Mason Munson MD Work Phone: [facility] 12-11-2024 06:46-0400 Body height 164 cm Mason Munson MD Work Phone: [facility] 12-06-2024 10:54-0400 Body height 162.6 cm Raffy Fernandez MD Work Phone: [facility] 12-06-2024 10:54-0400 Body mass index (BMI) [Ratio] 17.68 kg/m2 Raffy Fernandez MD Work Phone: [facility] 12-06-2024 10:54-0400 Body weight 46.72 kg Raffy Fernandez MD Work Phone: [facility] 12-06-2024 10:54-0400 Heart rate 94 /min Raffy Fernandez MD Work Phone: [facility] 12-06-2024 10:54-0400 Respiratory rate 18 /min Raffy Fernandez MD Work Phone: [facility] 12-06-2024 10:54-0400 SaO2% (BldA) [Mass fraction] 98 % Raffy Fernandez MD Work Phone: [facility] 11-27-2024 15:46-0400 Body height 162.6 cm Raffy Fernandez MD Work Phone: [facility] 11-27-2024 15:46-0400 Body mass index (BMI) [Ratio] 17.68 kg/m2 Raffy Fernandez MD Work Phone: [facility] 11-27-2024 15:46-0400 Body weight 46.72 kg Raffy Fernandez MD Work Phone: [facility] 11-27-2024 15:46-0400 Heart rate 70 /min Raffy Fernandez MD Work Phone: [facility] 11-27-2024 15:46-0400 Respiratory rate 18 /min Raffy Fernandez MD Work Phone: [facility] 11-27-2024 15:46-0400 SaO2% (BldA) [Mass fraction] 97 % Raffy Fernandez MD Work Phone: [facility] 11-22-2024 18:08-0400 Diastolic blood pressure 88 mm[Hg] Kev Warner MD Work Phone: [facility] 11-22-2024 18:08-0400 Heart rate 85 /min Kev Warner MD Work Phone: [facility] 11-22-2024 18:08-0400 Respiratory rate 20 /min Kev Warner MD Work Phone: [facility] 11-22-2024 18:08-0400 Systolic blood pressure 149 mm[Hg] Kev Warner MD Work Phone: [facility] 11-22-2024 15:57-0400 Body height 162.6 cm Kev Warner MD Work Phone: [facility] 11-22-2024 15:57-0400 Body mass index (BMI) [Ratio] 17.68 kg/m2 Kev Warner MD Work Phone: [facility] 11-22-2024 15:57-0400 Body temperature 97.39 [degF] Kev Warner MD Work Phone: [facility] 11-22-2024 15:57-0400 Body weight 46.72 kg Kev Warner MD Work Phone: [facility] 11-22-2024 15:57-0400 SaO2% (BldA) [Mass fraction] 100 % Kev Warner MD Work Phone: [facility] 11-15-2024 11:15-0400 Body temperature 98.1 [degF] CHAPARRO Moore MD Work Phone: [facility] 11-15-2024 11:15-0400 Diastolic blood pressure 73 mm[Hg] CHAPARRO Moore MD Work Phone: [facility] 11-15-2024 11:15-0400 Heart rate 61 /min CHAPARRO Moore MD Work Phone: [facility] 11-15-2024 11:15-0400 Respiratory rate 16 /min CHAPARRO Moore MD Work Phone: [facility] 11-15-2024 11:15-0400 SaO2% (BldA) [Mass fraction] 100 % CHAPARRO Moore MD Work Phone: [facility] 11-15-2024 11:15-0400 Systolic blood pressure 150 mm[Hg] CHAPARRO Moore MD Work Phone: [facility] 11-15-2024 04:48-0400 Body mass index (BMI) [Ratio] 18.76 kg/m2 CHAPARRO Moore MD Work Phone: [facility] 11-15-2024 04:48-0400 Body weight 49.58 kg CHAPARRO Moore MD Work Phone: [facility] 11-14-2024 06:25-0400 Body height 162.6 cm CHAPARRO Moore MD Work Phone: [facility] 11-11-2024 13:12-0400 Body temperature 97.59 [degF] Veronica Abebe MD Work Phone: [facility] 11-11-2024 13:12-0400 Diastolic blood pressure 80 mm[Hg] Veronica Abebe MD Work Phone: [facility] 11-11-2024 13:12-0400 Heart rate 87 /min Veronica Abebe MD Work Phone: [facility] 11-11-2024 13:12-0400 Respiratory rate 16 /min Veronica Abebe MD Work Phone: [facility] 11-11-2024 13:12-0400 SaO2% (BldA) [Mass fraction] 100 % Veronica Abebe MD Work Phone: [facility] 11-11-2024 13:12-0400 Systolic blood pressure 154 mm[Hg] Veronica Abebe MD Work Phone: [facility] 11-10-2024 06:00-0400 Body mass index (BMI) [Ratio] 20.13 kg/m2 Veronica Abebe MD Work Phone: [facility] 11-10-2024 06:00-0400 Body weight 53.2 kg Veronica Abebe MD Work Phone: [facility] 10-26-2024 14:38-0400 Body height 162.6 cm Veronica Abebe MD Work Phone: [facility] 09-06-2024 16:42-0400 Body temperature 100.2 [degF] Carine Jackie DO Work Phone: [facility] 09-06-2024 16:42-0400 Diastolic blood pressure 71 mm[Hg] Carine Jackie DO Work Phone: [facility] 09-06-2024 16:42-0400 Heart rate 110 /min Carine Jackie DO Work Phone: [facility] 09-06-2024 16:42-0400 Respiratory rate 16 /min Carine Jackie DO Work Phone: [facility] 09-06-2024 16:42-0400 SaO2% (BldA) [Mass fraction] 100 % Carine Jackie DO Work Phone: [facility] 09-06-2024 16:42-0400 Systolic blood pressure 157 mm[Hg] Carine Jackie DO Work Phone: [facility] 08-31-2024 01:34-0400 Body height 163 cm Carine Jackie DO Work Phone: [facility] 08-31-2024 01:34-0400 Body mass index (BMI) [Ratio] 19.5 kg/m2 Carine Mejia DO Work Phone: [facility] 08-31-2024 01:34-0400 Body weight 51.8 kg Carine Mejia DO Work Phone: [facility] 07-17-2024 21:10-0400 Body temperature 98.8 [degF] Rivas Pal-Meghana DO Work Phone: [facility] 07-17-2024 20:32-0400 Diastolic blood pressure 73 mm[Hg] Rivas Pal-Johnuegena DO Work Phone: [facility] 07-17-2024 20:32-0400 Heart rate 92 /min Rivas Pal-Meghana DO Work Phone: [facility] 07-17-2024 20:32-0400 Respiratory rate 16 /min Rivas Pal-Meghana DO Work Phone: [facility] 07-17-2024 20:32-0400 SaO2% (BldA) [Mass fraction] 98 % Rivas Pal-Meghana DO Work Phone: [employer] 07-17-2024 20:32-0400 Systolic blood pressure 127 mm[Hg] Rivas Pal-Meghana DO Work Phone: [email or web address] 07-17-2024 14:07-0400 Body mass index (BMI) [Ratio] 19.74 kg/m2 Rivas Pal-Meghana DO Work Phone: [employer] 07-17-2024 14:07-0400 Body weight 52.16 kg Rivas Pal-Meghana DO Work Phone: [email or web address] 06-29-2024 19:34-0400 Diastolic blood pressure 84 mm[Hg] Veronica Abebe MD Work Phone: [email or web address] 06-29-2024 19:34-0400 Heart rate 84 /min Veronica Abebe MD Work Phone: [facility] 06-29-2024 19:34-0400 Respiratory rate 18 /min Veronica Abebe MD Work Phone: [facility] 06-29-2024 19:34-0400 SaO2% (BldA) [Mass fraction] 100 % Veronica Abebe MD Work Phone: [facility] 06-29-2024 19:34-0400 Systolic blood pressure 166 mm[Hg] Veronica Abebe MD Work Phone: [facility] 06-29-2024 17:56-0400 Body temperature 97.7 [degF] Veronica Abebe MD Work Phone: [facility] 06-29-2024 06:01-0400 Body height 162.6 cm Veronica Abebe MD Work Phone: [facility] 06-29-2024 06:01-0400 Body mass index (BMI) [Ratio] 19.22 kg/m2 Veronica Abebe MD Work Phone: [facility] 06-29-2024 06:01-0400 Body weight 50.8 kg Veronica Abebe MD Work Phone: [facility] 06-09-2024 13:36-0500 Body height 162.6 cm Roxie Judit Work Phone: [employer] [facility] 06-09-2024 13:36-0500 Body mass index (BMI) [Ratio] 19.22 kg/m2 Roxie Judit Work Phone: [employer] 06-09-2024 13:36-0500 Body weight 50.8 kg Roxie Judit Work Phone: [facility] 03-03-2024 19:56-0500 Body temperature 97.5 [degF] Marcus Gombash DO Work Phone: [facility] 03-03-2024 19:56-0500 Diastolic blood pressure 81 mm[Hg] Marcus Gombash DO Work Phone: [employer] 03-03-2024 19:56-0500 Heart rate 91 /min [facility] 03-03-[facility]24 19:56-0500 Respiratory rate 16 /min Marcus [facility]ash [facility] 03-03-2024 19:56-0500 SaO2% (BldA) [Mass fraction] 96 % Marcus [facility]ombash DO [facility] 03-03-2024 19:56-0500 Systolic blood pressure 168 mm[Hg] Marcus [facility]ombash [facility] 03-03-2024 04:14-0500 Body mass index (BMI) [Ratio] 18.09 kg/m2 Marcus [facility]ombash DO [facility] 03-03-2024 04:14-0500 Body weight 47.81 kg Marcus Gombash DO Work Phone: [facility] 03-02-2024 09:56-0500 Body height 162.6 cm Marcus [facility]ombash DO [facility] 02-20-2024 15:07-0500 Body temperature 98.29 [degF] Cassie Mace DO [facility] 02-20-2024 15:07-0500 Diastolic blood pressure 72 mm[Hg] Cassie Mace DO [facility] 02-20-2024 15:07-0500 Heart rate 87 /min Cassie Glassworth DO Work Phone: [employer] 02-20-2024 15:07-0500 Respiratory rate 16 /min Cassie Glassworth DO Work Phone: [employer] 02-20-2024 15:07-0500 SaO2% (BldA) [Mass fraction] 94 % Cassie Glassworth DO Work Phone: [employer] 02-20-2024 15:07-0500 Systolic blood pressure 151 mm[Hg] Cassie Mace DO [facility] 02-20-2024 00:00-0500 Body mass index (BMI) [Ratio] 18.37 kg/m2 Cassie Mace DO Work Phone: [facility] 02-20-2024 00:00-0500 Body weight 48.53 kg Cassie Mace DO Work Phone: [facility] 02-19-2024 21:01-0500 Body height 162.6 cm Cassie Mace DO Work Phone: [facility] 02-12-2024 14:21-0500 Body temperature 97.7 [degF] Marcus Gombash DO Work Phone: [facility] 02-12-2024 14:21-0500 Diastolic blood pressure 71 mm[Hg] Marcus Gombash DO Work Phone: [facility] 02-12-2024 14:21-0500 Heart rate 87 /min Marcus [facility]ombash DO [facility] 02-12-2024 14:21-0500 Respiratory rate 14 /min Marcus Gombash DO Work Phone: [facility] 02-12-2024 14:21-0500 SaO2% (BldA) [Mass fraction] 96 % Marcus Gombash DO Work Phone: [facility] 02-12-2024 14:21-0500 Systolic blood pressure 153 mm[Hg] Marcus Gombash DO Work Phone: [facility] 01-25-2024 16:23-0400 Body temperature 97.9 [degF] Mejgon Natasha DO Work Phone: [facility] 01-25-2024 16:23-0400 Diastolic blood pressure 77 mm[Hg] Mejgon Natasha DO Work Phone: [facility] 01-25-2024 16:23-0400 Heart rate 107 /min Mejgon Natasha DO Work Phone: [facility] 01-25-2024 16:23-0400 Respiratory rate 18 /min Brown Kaur DO Work Phone: [facility] 01-25-2024 16:23-0400 SaO2% (BldA) [Mass fraction] 99 % Brown Kaur DO Work Phone: [facility] 01-25-2024 16:23-0400 Systolic blood pressure 158 mm[Hg] Brown Kaur DO Work Phone: [facility] 01-25-2024 08:27-0400 Body height 162.6 cm Brown Kaur DO Work Phone: [facility] 01-25-2024 08:27-0400 Body mass index (BMI) [Ratio] 19.74 kg/m2 Brown Kaur DO Work Phone: [facility] 01-25-2024 08:27-0400 Body weight 52.16 kg Brown Kaur DO Work Phone: [facility] 08-09-2023 20:40-0400 Diastolic blood pressure 75 mm[Hg] Samuel Dennisrakola DO Work Phone: [facility] 08-09-2023 20:40-0400 Heart rate 82 /min Samuel Silvakola DO Work Phone: [facility] 08-09-2023 20:40-0400 Respiratory rate 18 /min Samuel Dennisrakola DO Work Phone: [facility] 08-09-2023 20:40-0400 SaO2% (BldA) [Mass fraction] 100 % Samuel Dennisrakola DO Work Phone: [facility] 08-09-2023 20:40-0400 Systolic blood pressure 147 mm[Hg] Samuel Mudrakola DO Work Phone: [facility] 08-09-2023 20:02-0400 Body temperature 97.59 [degF] Samuel Mudrakola DO Work Phone: [facility] 08-09-2023 15:43-0400 Body height 162.6 cm Samuel Amatola DO Work Phone: [facility] 08-09-2023 15:43-0400 Body mass index (BMI) [Ratio] 18.88 kg/m2 Samuel Amatola DO Work Phone: [facility] 08-09-2023 15:43-0400 Body weight 49.9 kg Samuel Amatola DO Work Phone: [facility] 03-03-2023 08:32-0500 Body temperature 97.81 [degF] Alvarado Bonyo DO Work Phone: [facility] 03-03-2023 08:32-0500 Diastolic blood pressure 72 mm[Hg] Alvarado Bonyo DO Work Phone: [facility] 03-03-2023 08:32-0500 Heart rate 88 /min Alvarado Bonyo DO Work Phone: [facility] 03-03-2023 08:32-0500 Respiratory rate 18 /min Alvarado Bonyo DO Work Phone: [facility] 03-03-2023 08:32-0500 SaO2% (BldA) [Mass fraction] 96 % Alvarado Bonyo DO Work Phone: [facility] 03-03-2023 08:32-0500 Systolic blood pressure 143 mm[Hg] Alvarado Bonyo DO Work Phone: [facility] 01-12-2023 11:18-0400 Body height 162.6 cm Alvarado Bonyo DO Work Phone: [facility] 01-12-2023 11:18-0400 Body mass index (BMI) [Ratio] 19.74 kg/m2 Alvarado Bonyo DO Work Phone: [facility] 01-12-2023 11:18-0400 Body weight 52.16 kg Alvarado Bonyo DO Work Phone: [facility] 10-01-2022 12:05-0400 Body mass index (BMI) [Ratio] 19.57 kg/m2 Mak Hilario MD Work Phone: [facility] 10-01-2022 12:05-0400 Body temperature 97.7 [degF] Mak Hilario MD Work Phone: [facility] 10-01-2022 12:05-0400 Body weight 51.71 kg Mak Hilario MD Work Phone: [facility] 10-01-2022 12:05-0400 Diastolic blood pressure 75 mm[Hg] Mak Hilario MD Work Phone: [facility] 10-01-2022 12:05-0400 Heart rate 81 /min Mak Hilario MD Work Phone: [facility] 10-01-2022 12:05-0400 Respiratory rate 14 /min Mak Hilario MD Work Phone: [facility] 10-01-2022 12:05-0400 SaO2% (BldA) [Mass fraction] 98 % Mak Hilario MD Work Phone: [facility] 10-01-2022 12:05-0400 Systolic blood pressure 139 mm[Hg] Mak Hilario MD Work Phone: [facility] 08-07-2022 14:00-0400 Diastolic blood pressure 65 mm[Hg] Raffy Fernandez MD Work Phone: [facility] 08-07-2022 14:00-0400 Heart rate 73 /min Raffy Fernandez MD Work Phone: [facility] 08-07-2022 14:00-0400 Respiratory rate 11 /min Raffy Fernandez MD Work Phone: [facility] 08-07-2022 14:00-0400 SaO2% (BldA) [Mass fraction] 100 % Raffy Fernandez MD Work Phone: [facility] 08-07-2022 14:00-0400 Systolic blood pressure 108 mm[Hg] Raffy Fernandez MD Work Phone: [facility] 08-07-2022 13:30-0400 Body temperature 97.7 [degF] Raffy Fernandez MD Work Phone: [facility] 08-07-2022 08:15-0400 Body height 162.6 cm Raffy Fernandez MD Work Phone: [facility] 08-07-2022 08:15-0400 Body mass index (BMI) [Ratio] 18.88 kg/m2 Raffy Fernandez MD Work Phone: [facility] 08-07-2022 08:15-0400 Body weight 49.9 kg Raffy Fernandez MD Work Phone: [facility] 06-24-2022 09:35-0400 Body height 162.6 cm Raffy Fernandez MD Work Phone: [facility] 06-24-2022 09:35-0400 Body mass index (BMI) [Ratio] 19.57 kg/m2 Raffy Fernandez MD Work Phone: [facility] 06-24-2022 09:35-0400 Body weight 51.71 kg Raffy Fernandez MD Work Phone: [facility] 06-24-2022 09:35-0400 Diastolic blood pressure 75 mm[Hg] Raffy Fernandez MD Work Phone: [facility] 06-24-2022 09:35-0400 Heart rate 90 /min Raffy Fernandez MD Work Phone: [facility] 06-24-2022 09:35-0400 Systolic blood pressure 130 mm[Hg] Raffy Fernandez MD Work Phone: [facility] 10-25-2019 09:48-0400 BP Diastolic 90 mm[Hg] [facility] 10-25-2019 09:48-0400 BP Systolic 123 mm[Hg] [facility] 10-25-2019 09:48-0400 Pulse (Heart Rate) 71 /min [facility] 10-25-2019 09:48-0400 Pulse Oximetry 100 % Jose Antonio [facility] 10-25-2019 09:48-0400 Respiratory Rate 16 /min Jose Antonio [facility] 10-25-2019 07:35-0400 Body Temperature 97 [degF] Jose Antonio Adams [facility] 10-25-2019 07:35-0400 Body weight 57.61 kg [facility] 10-25-2019 07:35-0400 Height 162.6 cm [facility] Encounters Encounter Date Encounter Type Care Provider Facility Start: 12-28-2024 End: 12-28-2024 Emergency department patient visit Brown Kaur Work Phone: [facility] ED Comment on above: Transient alteration of awareness (Primary Dx) Start: 12-25-2024 ambulatory Alex guevara OLS Facility:[facility] Start: 12-08-2024 End: 12-20-2024 Evaluation and management of inpatient Mason Munson MD Work Phone: [facility] Care [facility] the [facility] 6W Start: 12-06-2024 End: 12-06-2024 Preprocedural examination done Raffy Fernandez MD Work Phone: [facility] Start: 12-06-2024 End: 12-06-2024 Subsequent hospital visit by physician Raffy Fernandez MD Work Phone: [facility] [address] [facility] Comment on above: ESRD (end stage bladimir l disease) on dialysis (HCC); Preop examination Start: 12-06-2024 End: 12-06-2024 ambulatory RAFFY JIM [facility] Start: 12-06-2024 End: 12-06-2024 Encounter for other preprocedural examination [facility] Start: 12-06-2024 End: 12-06-2024 Postop follow up visit related to original px Raffy Fernandez MD Work Phone: [facility] [place] Comment on above: ESRD (end stage bladimir l disease) on dialysis (HCC) (Primary Dx) Start: 12-06-2024 End: 12-06-2024 ambulatory RAFFY FERNANDEZ [facility] Start: 12-05-2024 ambulatory [facility] Facility:[facility] Start: 11-30-2024 ambulatory [facility] Facility:[facility] Start: 11-27-2024 End: 11-27-2024 ambulatory RAFFY FERNANDEZ [facility] Start: 11-27-2024 End: 11-27-2024 Postop follow up visit related to original px Raffy Fernandez MD Work Phone: [facility] [place] Comment on above: ESRD (end stage bladimir l disease) on dialysis (HCC) (Primary Dx) Start: 11-22-2024 End: 11-22-2024 Emergency department patient visit Kev Warner MD Work Phone: [facility] ED Comment on above: Anemia of chronic di sease (Primary Dx) Start: 11-22-2024 ambulatory [facility] Facility:[facility] Start: 11-16-2024 End: 11-16-2024 Orders Only Kellee Gonzalez RN [facility] Comment on above: End stage congestive heart failure (HCC) (Primary Dx); ESRD (end stage renal disease) (HCC) Start: 11-12-2024 End: 11-15-2024 ambulatory FELIBERTO KAMINSKI [facility] Start: 11-12-2024 End: 11-15-2024 Evaluation and management of inpatient Roz Moore MD Work Phone: [facility] Cardiac Vascular Progressive Care Unit PCC 1C Comment on above: Wound dehiscence (Pr imary Dx); Anemia due to other cause, not classified; End stage congestive heart failure (HCC); Seizures (HCC); Pressure ulcer of left buttock, stage 3 (HCC) Start: 10-22-2024 End: 11-11-2024 Evaluation and management of inpatient Veronica Abebe MD Work Phone: [facility] 6W Start: 09-13-2024 End: 10-12-2024 Evaluation and management of inpatient KEV WANG [facility] Start: 08-30-2024 End: 09-06-2024 Evaluation and management of inpatient Carine Mejia DO Work Phone: [facility] Comment on above: Hematoma (Primary Dx ) Start: 08-26-2024 End: 08-30-2024 Evaluation and management of inpatient YONY BHAKTA DO~[id number] [facility] Start: 08-14-2024 End: 08-24-2024 Evaluation and management of inpatient YONY BHAKTA DO~[id number] [facility] Start: 07-17-2024 End: 07-17-2024 Emergency department patient visit Rivas Sanchez DO Work Phone: [facility] EMERGENCY DEPT Comment on above: Adverse effect of dr sue, initial encounter (Primary Dx) Start: 06-29-2024 End: 06-29-2024 Emergency department patient visit Veronica Abebe MD Work Phone: [facility] EMERGENCY DEPT Comment on above: Myoclonus (Primary D x); Fall, initial encounter; Hyperkalemia Start: 06-09-2024 End: 06-09-2024 Subsequent hospital visit by physician Roxie Spain Work Phone: [facility] Comment on above: Encounter for screen ing mammogram for malignant neoplasm of breast Start: 06-09-2024 End: [facility] Start: 05-23-2024 End: 05-23-2024 Emergency department patient visit RONDA TEJEDA DO~[id number] [facility] Start: 03-02-2024 End: 03-03-2024 ambulatory ROXIE [facility] Start: 03-02-2024 End: 03-03-2024 Emergency department patient visit Marcus Ragland DO Work Phone: [facility] Cardiac Progressive Care Unit PCU 5W Comment on above: Shortness of breath (Primary Dx); Acute pulmonary edema (HCC); Hyperkalemia Start: 02-19-2024 End: 02-20-2024 Evaluation and management of inpatient Cassie Mace DO Work Phone: [facility] Cardiac Progressive Care Unit PCU 5W Comment on above: Pulmonary edema, acu te (HCC) (Primary Dx) Start: 02-12-2024 End: 02-12-2024 Emergency department patient visit Marcus Ragland DO Work Phone: [facility] EMERGENCY DEPT Comment on above: Hypertension, unspec ified type (Primary Dx) Start: 01-19-2024 End: 01-25-2024 Evaluation and management of inpatient Brown Kaur DO Work Phone: [facility] 6W Comment on above: Gastrointestinal hem orrhage, unspecified gastrointestinal hemorrhage type (Primary Dx); Anemia, unspecified type Start: 08-09-2023 End: 08-09-2023 Emergency department patient visit Samuel Velasquez DO Work Phone: [facility] EMERGENCY DEPT Comment on above: Hyperkalemia (Primar y Dx) Start: 06-25-2023 End: 09-24-2023 Transcribe Orders Radha Meza MD Work Phone: [facility] Central Scheduling Comment on above: End stage renal dise ase (HCC) (Primary Dx) Start: 03-03-2023 End: 03-03-2023 Emergency department patient visit Christiano Grove DO Work Phone: [facility] EMERGENCY DEPT Comment on above: ESRD on hemodialysis (CMS/HCC) (HCC) (Primary Dx) Start: 03-03-2023 End: 03-03-2023 Subsequent hospital visit by physician Nandini Ecg [facility] Non-Invasive Cardiology Comment on above: Arrived Start: 01-12-2023 End: 01-12-2023 Subsequent hospital visit by physician Christiano Grove DO Work Phone: [facility] Comment on above: Encounter for screen ing mammogram for malignant neoplasm of breast Start: 10-01-2022 Telephone encounter Katherin Salinas RN [facility] Special Procedures Start: 10-01-2022 End: 10-01-2022 Emergency department patient visit Mak Hilario MD Work Phone: [facility] EMERGENCY DEPT Comment on above: Hematoma (Primary Dx ); Bleeding from wound Start: 09-30-2022 End: 09-30-2022 Evaluation and management of inpatient Radha Meza MD Work Phone: [facility] Special Procedures Comment on above: End stage renal dise ase (HCC) Start: 09-28-2022 Transcribe Orders Radha steven MD Work Phone: [facility] Central Scheduling Comment on above: End stage renal dise ase (HCC) (Primary Dx) Start: 08-07-2022 End: 08-07-2022 Subsequent hospital visit by physician Raffy Fernandez MD Work Phone: [facility] MAIN OR Comment on above: S/P arteriovenous (A V) graft placement (Primary Dx) Start: 07-17-2022 ambulatory Kailyn Fnuk CNP Work Phone: [facility] Start: 07-17-2022 End: 07-17-2022 Subsequent hospital visit by physician Raffy Fernandez MD Work Phone: [facility] MAIN OR Start: 07-10-2022 Telephone encounter Maria R perez MD Work Phone: [facility] Internal Med Start: 07-01-2022 Telephone encounter Raffy smith MD Work Phone: [facility] [place] Comment on above: Surgery Scheduling Start: 06-24-2022 End: 06-24-2022 Office outpatient new 45 minutes Raffy Fernandez MD Work Phone: [facility] [place] Comment on above: ESRD (end stage bladimir l disease) (HCC) (Primary Dx) Start: 06-03-2022 ambulatory CARLOS MANUEL Q WANG Facility: [facility] Start: 06-03-2022 End: 06-03-2022 Subsequent hospital visit by physician Us Lugo 1 [facility] [place] Comment on above: End stage renal dise ase [N18.6] Start: 10-25-2019 End: 10-25-2019 Subsequent hospital visit by physician Jose Antonio Adams Work Phone: [facility] INTERVENTIONAL RADIOLOGY Comment on above: Chronic kidney disea se (CKD), stage IV (severe) (HCC) [N18.4] Start: 10-03-2019 End: 10-03-2019 Subsequent hospital visit by physician Caren James [facility] LABORATORY MEDICINE Comment on above: Chronic kidney disea se, stage IV (severe) (HCC) [N18.4] Start: 07-24-2019 End: 07-24-2019 Subsequent hospital visit by physician Christiano Grove Work Phone: [facility] Ul[facility]ound Comment on above: Arrived Procedures Date Procedure Procedure Detail Performing Clinician Start: 12-28-2024 Glucose quantitative blood xcpt reagent strip Brown Reid Natasha DO Work Phone: Start: 12-20-2024 Glucose quantitative blood xcpt reagent strip Mo Vieiar MD Work Phone: Start: 12-20-2024 Glucose quantitative blood xcpt reagent strip Mo Vieira MD Work Phone: Start: 12-20-2024 End: 12-20-2024 Comprehensive metabolic panel Leticia Leonardo DO Work Phone: Start: 12-19-2024 End: 12-19-2024 Glucose quantitative blood xcpt reagent strip Mo Vieira MD Work Phone: Start: 12-19-2024 Blood count hematocrit Kev Urias MD Work Phone: Start: 12-19-2024 Comprehensive metabo lic panel Leticia Leonardo DO Work Phone: Start: 12-18-2024 Blood count hematocrit Kev Urias MD Work Phone: Start: 12-18-2024 End: 12-18-2024 Mri brain brain stem w/o contrast material Leticia Leonardo DO Work Phone: Start: 12-18-2024 Blood count hematocrit Kev Urias MD Work Phone: Start: 12-18-2024 Glucose quantitative blood xcpt reagent strip Leticia Leonardo DO Work Phone: Start: 12-18-2024 Comprehensive metabo lic panel Leticia Leonardo DO Work Phone: Start: 12-18-2024 Glucose quantitative blood xcpt reagent strip Leticia Estevezntire DO Work Phone: Start: 12-17-2024 Blood count hematocrit Kev Urias MD Work Phone: Start: 12-17-2024 Glucose quantitative blood xcpt reagent strip Leticia Estevezntire DO Work Phone: Start: 12-17-2024 Compatibility each u nit electronic Leticia Malissa DO Work Phone: Start: 12-17-2024 End: 12-17-2024 Comprehensive metabolic panel Leticia Estevezntire DO Work Phone: Start: 12-17-2024 Blood count complete automated Leticia Estevezntire DO Work Phone: Start: 12-16-2024 Comprehensive metabo lic panel Leticia Malissa DO Work Phone: Start: 12-16-2024 Ct abdomen & pelvis w/o contrast material Leticia Malissa DO Work Phone: Start: 12-16-2024 Drug screen quantita tive vancomycin Radha Kuzmin DO Work Phone: Start: 12-16-2024 Comprehensive metabo lic panel Leticia Malissa DO Work Phone: Start: 12-15-2024 Glucose quantitative blood xcpt reagent strip Leticia Estevezntire DO Work Phone: Start: 12-15-2024 End: 12-15-2024 Drug screen quantitative vancomycin Radha Kuzmin DO Work Phone: Start: 12-15-2024 End: 12-15-2024 Comprehensive metabolic panel Leticia Malissa DO Work Phone: Start: 12-14-2024 Glucose quantitative blood xcpt reagent strip Leticia Malissa DO Work Phone: Start: 12-14-2024 Glucose quantitative blood xcpt reagent strip Leticia Malissa DO Work Phone: Start: 12-14-2024 Glucose quantitative blood xcpt reagent strip Leticia Malissa DO Work Phone: Start: 12-14-2024 Antibody screen FELIBERTO IV AN Comment on above: Performed By: #### L [id number] ####Detective Chief: PHILLY FRANCO ([id number])[facility] ([address] Start: 12-14-2024 Blood typing serologic abo Ramonita Garnett MILLINERY DEPARTMENT MANAGER Start: 12-14-2024 End: 12-14-2024 Comprehensive metabolic panel Leticia Malissa DO Work Phone: Start: 12-14-2024 Blood count complete automated Leticia Malissa DO Work Phone: Start: 12-13-2024 Glucose quantitative blood xcpt reagent strip Leticia Malissa DO Work Phone: Start: 12-13-2024 Radex shoulder compl ete minimum 2 views Ramonita Garnett MILLINERY DEPARTMENT MANAGER Start: 12-13-2024 Glucose quantitative blood xcpt reagent strip Leticia Malissa DO Work Phone: Start: 12-13-2024 End: 12-13-2024 Glucose quantitative blood xcpt reagent strip Leticia Malissa DO Work Phone: Start: 12-13-2024 Basic metabolic pane l calcium total Ramonita Garnett NP Start: 12-13-2024 Drug screen quantita tive vancomycin Leticia Malissa DO Work Phone: Start: 12-12-2024 Ct head/brain w/o co ntrast material Ramonita Garnett MILLINERY DEPARTMENT MANAGER Start: 12-12-2024 End: 12-12-2024 Glucose quantitative blood xcpt reagent strip Leticia Malissa DO Work Phone: Start: 12-12-2024 Glucose quantitative blood xcpt reagent strip Leticia Malissa DO Work Phone: Start: 12-12-2024 Radiologic exam ches t single view Ramonita Garnett MILLINERY DEPARTMENT MANAGER Start: 12-12-2024 Radiologic exam abdo men 1 view Ramonita Amanda Mariola MILLINERY DEPARTMENT MANAGER Start: 12-12-2024 Bacteria identified in Blood by Culture Radha Paredesmin DO Work Phone: Start: 12-12-2024 Comprehensive metabo lic panel Andrea Blas MD Work Phone: Start: 12-11-2024 Ct head/brain w/o co ntrast material Radha Paredesmin DO Work Phone: Start: 12-11-2024 Assay of lactate Radha K uzmin DO Work Phone: Start: 12-11-2024 Blood gases any comb ination ph pco2 po2 co2 hco3 Radhajacquelyn Paredesmin DO Work Phone: Start: 12-11-2024 Ecg routine ecg w/le ast 12 lds trcg only w/o i&r Radhajacquelyn Paredesmin DO Work Phone: Start: 12-11-2024 Glucose quantitative blood xcpt reagent strip Radha Paredesmin DO Work Phone: Start: 12-11-2024 Comprehensive metabo lic panel Andrea Blas MD Work Phone: Start: 12-10-2024 Comprehensive metabo lic panel John Shepherd DO Work Phone: Start: 12-09-2024 Renal function panel Ol jacquelyn Paredesmin DO Work Phone: Start: 12-09-2024 Radex hip unilateral with pelvis 2-3 views John Shepherd DO Work Phone: Start: 12-09-2024 Compatibility each u nit electronic Angelica Hines DO Work Phone: Start: 12-09-2024 End: 12-09-2024 TRANSFUSE RED BLOOD CELLS Angelica Cramer O Work Phone: Start: 12-08-2024 Antibody screen FELIBERTO IV AN Comment on above: Performed By: #### L [id number] ####Detective Chief: PHILLY FRANCO ([id number])[facility] (ACH)[address] Start: 12-08-2024 Blood typing serologic abo Angelica DO Work Phone: Start: 12-08-2024 Comprehensive metabo lic panel Angelica DO Work Phone: Start: 12-08-2024 Ct cervical spine w/ o contrast material Angelica DO Work Phone: Start: 12-08-2024 Ct head/brain w/o co ntrast material Angelica DO Work Phone: Start: 12-06-2024 Duplex scan artl inf l&manolo o/f hemo compl bi std Raffy Fernandez MD Work Phone: Start: 12-06-2024 Follow-up visit FELIBERTO IV AN Start: 11-27-2024 Follow-up visit FELIBERTO IV AN Start: 11-22-2024 Antibody screen FELIBERTO IV AN Comment on above: Performed By: #### L [id number] ####Detective Chief: DEANN MCKEE ([id number])[facility])[address] [place] [id number] [place] [address] Start: 11-22-2024 Basic metabolic pane l calcium total Kev Warner MD Work Phone: Start: 11-22-2024 Blood typing serologic abo Kev Warner MD Work Phone: Start: 11-13-2024 Blood count hematocrit Kailyn Juárez RADIATION ONCOLOGIST - AGENCY TRAINER Work Phone: Start: 11-13-2024 Glucose quantitative blood xcpt reagent strip Edson Velazquez MD Work Phone: Start: 11-13-2024 Glucose quantitative blood xcpt reagent strip Edson Velazquez MD Work Phone: Start: 11-13-2024 Basic metabolic pane l calcium total Jamie Camarena DO Work Phone: Start: 11-12-2024 End: 11-12-2024 Basic metabolic panel calcium total J Ann Moore MD Work Phone: Start: 11-12-2024 Manual differential performed [Presence] in Blood J Ann Moore MD Work Phone: Start: 11-11-2024 Antibody screen FELIBERTO IV AN Comment on above: Performed By: #### L [id number] ####Detective Chief: PHILLY FRANCO ([id number])[facility] ([facility])[address] [place] [address] Start: 11-11-2024 Basic metabolic pane l calcium total Candy Baiko DO Work Phone: Start: 11-11-2024 Blood typing serologic abo Francisco Javier Somers MD Work Phone: Start: 11-10-2024 Basic metabolic pane l calcium total Candy Baiko DO Work Phone: Start: 11-09-2024 Blood count hematocrit Romain Meadows MILLINERY DEPARTMENT MANAGER Work Phone: Start: 11-09-2024 Compatibility each u nit electronic Romain Meadows MILLINERY DEPARTMENT MANAGER Work Phone: Start: 11-09-2024 End: 11-09-2024 TRANSFUSE RED BLOOD CELLS Romain Meadows MILLINERY DEPARTMENT MANAGER Work Phone: Start: 11-09-2024 Antibody screen FELIBERTO IV AN Comment on above: Performed By: #### L [id number] ####Detective Chief: PHILLY FRANCO ([id number])[facility] ([facility])[address] [place] [address] Start: 11-09-2024 Basic metabolic pane l calcium total Candy Baiko DO Work Phone: Start: 11-09-2024 Blood typing serologic abo Francisco Javier Somers MD Work Phone: Start: 11-09-2024 Compatibility each u nit electronic Raffy Fernandez MD Work Phone: Start: 11-08-2024 Glucose quantitative blood xcpt reagent strip Gerard Carrillo DO Work Phone: Start: 11-08-2024 Basic metabolic pane l calcium total Candy Baiko DO Work Phone: Start: 11-07-2024 Basic metabolic pane l calcium total Candy Anikako DO Work Phone: Start: 11-06-2024 Basic metabolic pane l calcium total Candy Anikako DO Work Phone: Start: 11-05-2024 Blood count hematocrit Raffy Fernandez MD Work Phone: Start: 11-05-2024 End: 11-05-2024 TRANSFUSE RED BLOOD CELLS Raffy Fernandez MD Work Phone: Start: 11-05-2024 End: 11-05-2024 REVISION OR REPAIR, AV FISTULA Raffy Fernandez MD Work Phone: Start: 11-05-2024 Compatibility each u nit electronic Romain Meadows MILLINERY DEPARTMENT MANAGER Work Phone: Start: 11-05-2024 End: 11-05-2024 TRANSFUSE RED BLOOD CELLS Romain Meadows MILLINERY DEPARTMENT MANAGER Work Phone: Start: 11-05-2024 Blood count hematocrit Romain Meadows MILLINERY DEPARTMENT MANAGER Work Phone: Start: 11-05-2024 Basic metabolic pane l calcium total Candy Donaldsonko DO Work Phone: Start: 11-05-2024 Blood typing serologic abo Francisco Javier Somers MD Work Phone: Start: 11-05-2024 Compatibility each u nit electronic Candy Denis DO Work Phone: Start: 11-04-2024 Glucose quantitative blood xcpt reagent strip Candy Anikako DO Work Phone: Start: 11-04-2024 Blood count complete auto&auto difrntl wbc Candy Donaldsonko DO Work Phone: Start: 11-04-2024 Glucose quantitative blood xcpt reagent strip Candy Baiko DO Work Phone: Start: 11-03-2024 Glucose quantitative blood xcpt reagent strip Candy Baiko DO Work Phone: Start: 11-03-2024 Blood count hematocrit Candy Donaldsonko DO Work Phone: Start: 11-03-2024 Glucose quantitative blood xcpt reagent strip Candy Anikako DO Work Phone: Start: 11-03-2024 Compatibility each u nit electronic Luther Robin MD Work Phone: Start: 11-03-2024 End: 11-03-2024 TRANSFUSE RED BLOOD CELLS Candy Donaldsonko DO Work Phone: Start: 11-03-2024 End: 11-03-2024 Basic metabolic panel calcium total Candy Donaldsonko DO Work Phone: Start: 11-03-2024 Glucose quantitative blood xcpt reagent strip Candy Anikako DO Work Phone: Start: 11-02-2024 Glucose quantitative blood xcpt reagent strip Candy Donaldsonko DO Work Phone: Start: 11-02-2024 Glucose quantitative blood xcpt reagent strip Candy Donaldsonko DO Work Phone: Start: 11-02-2024 Blood count hematocrit Luther Robin MD Work Phone: Start: 11-02-2024 Glucose quantitative blood xcpt reagent strip Candy Donaldsonko DO Work Phone: Start: 11-02-2024 End: 11-02-2024 TRANSFUSE RED BLOOD CELLS Luther Robin MD Work Phone: Start: 11-02-2024 Basic metabolic pane l calcium total Francisco Javier Somers MD Work Phone: Start: 11-02-2024 AEROBIC AND ANAEROBI C CULTURE WITH STAIN Raffy Fernandez MD Work Phone: Start: 11-02-2024 Culture bacterial an y source anaerobic iso&id Raffy Fernandez MD Work Phone: Start: 11-02-2024 AEROBIC AND ANAEROBI C CULTURE WITH STAIN Raffy Fernandez MD Work Phone: Start: 11-02-2024 Culture bacterial an y source anaerobic iso&id Raffy Fernandez MD Work Phone: Start: 11-02-2024 End: 11-02-2024 Excision infected graft extremity Raffy Fernandez MD Work Phone: Start: 11-02-2024 Glucose quantitative blood xcpt reagent strip Candy Denis DO Work Phone: Start: 11-02-2024 Basic metabolic pane l calcium total Ana M Austen RADIATION ONCOLOGIST - AGENCY TRAINER Work Phone: Start: 11-01-2024 Glucose quantitative blood xcpt reagent strip Candy Denis DO Work Phone: Start: 11-01-2024 Glucose quantitative blood xcpt reagent strip Candy Denis DO Work Phone: Start: 11-01-2024 Radiologic exam ches t single view Victor Manuel Bueno MD Work Phone: Start: 11-01-2024 Ecg routine ecg w/le ast 12 lds trcg only w/o i&r Victor Manuel Bueno MD Work Phone: Start: 11-01-2024 Blood typing serolog ic rh (d) Francisco Javier Somers MD Work Phone: Start: 11-01-2024 Prothrombin time Jn Bueno MD Work Phone: Start: 11-01-2024 Glucose quantitative blood xcpt reagent strip Candy Denis DO Work Phone: Start: 11-01-2024 Duplex scan hemodial ysis access Naman Yeboah MD Work Phone: Start: 11-01-2024 Glucose quantitative blood xcpt reagent strip Candy Denis DO Work Phone: Start: 11-01-2024 Glucose quantitative blood xcpt reagent strip Veronica Yan DO Work Phone: Start: 11-01-2024 Basic metabolic pane l calcium total Ana Emanuel Austen RADIATION ONCOLOGIST - AGENCY TRAINER Work Phone: Start: 11-01-2024 Manual Differential panel - Blood Ana Adelfo Austen RADIATION ONCOLOGIST - AGENCY TRAINER Work Phone: Start: 11-01-2024 Glucose quantitative blood xcpt reagent strip Veronica Yan DO Work Phone: Start: 10-31-2024 Glucose quantitative blood xcpt reagent strip Veronica Yan DO Work Phone: Start: 10-31-2024 Glucose quantitative blood xcpt reagent strip Veronica Yan DO Work Phone: Start: 10-31-2024 Glucose quantitative blood xcpt reagent strip Veronica Yan DO Work Phone: Start: 10-31-2024 Glucose quantitative blood xcpt reagent strip Isai Guillen MD Work Phone: Start: 10-31-2024 Basic metabolic pane l calcium total Ana M Boyce RADIATION ONCOLOGIST - AGENCY TRAINER Work Phone: Start: 10-31-2024 Manual Differential panel - Blood Ana M Austen RADIATION ONCOLOGIST - AGENCY TRAINER Work Phone: Start: 10-31-2024 Glucose quantitative blood xcpt reagent strip Isai Guillen MD Work Phone: Start: 10-30-2024 Glucose quantitative blood xcpt reagent strip Isai Guillen MD Work Phone: Start: 10-30-2024 Glucose quantitative blood xcpt reagent strip Isai Guillen MD Work Phone: Start: 10-30-2024 Glucose quantitative blood xcpt reagent strip Isai Guillen MD Work Phone: Start: 10-30-2024 End: 10-30-2024 Basic metabolic panel calcium total Ana M Austen RADIATION ONCOLOGIST - AGENCY TRAINER Work Phone: Start: 10-30-2024 Manual Differential panel - Blood Ana M Austen RADIATION ONCOLOGIST - AGENCY TRAINER Work Phone: Start: 10-29-2024 Glucose quantitative blood xcpt reagent strip Isai Guillen MD Work Phone: Start: 10-29-2024 Glucose quantitative blood xcpt reagent strip Isai Guillen MD Work Phone: Start: 10-29-2024 Glucose quantitative blood xcpt reagent strip Isai Guillen MD Work Phone: Start: 10-29-2024 Basic metabolic pane l calcium total Ana Emanuel Austen RADIATION ONCOLOGIST - AGENCY TRAINER Work Phone: Start: 10-29-2024 Manual Differential panel - Blood Ana Emanuel Austen RADIATION ONCOLOGIST - AGENCY TRAINER Work Phone: Start: 10-29-2024 Glucose quantitative blood xcpt reagent strip Isai Guillen MD Work Phone: Start: 10-29-2024 Glucose quantitative blood xcpt reagent strip Isai Guillen MD Work Phone: Start: 10-28-2024 Glucose quantitative blood xcpt reagent strip Isai Guillen MD Work Phone: Start: 10-28-2024 Glucose quantitative blood xcpt reagent strip Isai Guillen MD Work Phone: Start: 10-28-2024 Glucose quantitative blood xcpt reagent strip Isai Guillen MD Work Phone: Start: 10-28-2024 End: 10-28-2024 Basic metabolic panel calcium total Ana Emanuel Austen RADIATION ONCOLOGIST - AGENCY TRAINER Work Phone: Start: 10-28-2024 Manual Differential panel - Blood Ana Emanuel Austen RADIATION ONCOLOGIST - AGENCY TRAINER Work Phone: Start: 10-28-2024 Glucose quantitative blood xcpt reagent strip Isai Guillen MD Work Phone: Start: 10-27-2024 Glucose quantitative blood xcpt reagent strip Isai Guillen MD Work Phone: Start: 10-27-2024 Glucose quantitative blood xcpt reagent strip Isai Guillen MD Work Phone: Start: 10-27-2024 Blood count hematocrit Ana M Austen RADIATION ONCOLOGIST - AGENCY TRAINER Work Phone: Start: 10-27-2024 Compatibility each u nit electronic Ana M Austen RADIATION ONCOLOGIST - AGENCY TRAINER Work Phone: Start: 10-27-2024 End: 10-27-2024 TRANSFUSE RED BLOOD CELLS Ana Emanuel Nathanael cramer RADIATION ONCOLOGIST - AGENCY TRAINER Work Phone: Start: 10-27-2024 Blood typing serologic abo Ana Emanuel Austen RADIATION ONCOLOGIST - AGENCY TRAINER Work Phone: Start: 10-27-2024 Glucose quantitative blood xcpt reagent strip Isai Guillen MD Work Phone: Start: 10-27-2024 Basic metabolic pane l calcium total Ana Emanuel Austen RADIATION ONCOLOGIST - AGENCY TRAINER Work Phone: Start: 10-27-2024 Manual Differential panel - Blood Ana Emanuel Austen RADIATION ONCOLOGIST - AGENCY TRAINER Work Phone: Start: 10-27-2024 Glucose quantitative blood xcpt reagent strip Isai Guillen MD Work Phone: Start: 10-26-2024 End: 10-26-2024 Basic metabolic panel calcium total Kaylin Iversonttevie DO Work Phone: Start: 10-26-2024 Drug screen quantita tive vancomycin Loni Jesica Zambrano MD Work Phone: Start: 10-26-2024 Manual differential performed [Presence] in Blood Kaylin Thomas DO Work Phone: Start: 10-25-2024 Glucose quantitative blood xcpt reagent strip Isai Guillen MD Work Phone: Start: 10-25-2024 Glucose quantitative blood xcpt reagent strip Kaylin Iversonttmann DO Work Phone: Start: 10-25-2024 Glucose quantitative blood xcpt reagent strip Kaylin Luttmann DO Work Phone: Start: 10-25-2024 Glucose quantitative blood xcpt reagent strip Kaylin Luttmann DO Work Phone: Start: 10-25-2024 Basic metabolic pane l calcium total Kaylin Luttmann DO Work Phone: Start: 10-25-2024 Manual differential performed [Presence] in Blood Kaylin Luttmann DO Work Phone: Start: 10-25-2024 Glucose quantitative blood xcpt reagent strip Kaylin Luttmann DO Work Phone: Start: 10-24-2024 Drug screen quantita tive vancomycin Kaylin Thomas DO Work Phone: Start: 10-24-2024 Glucose quantitative blood xcpt reagent strip Kaylin Thomas DO Work Phone: Start: 10-24-2024 End: 10-24-2024 Blood count hematocrit Kaylin Thomas DO Work Phone: Start: 10-24-2024 AEROBIC AND ANAEROBI C CULTURE WITH STAIN Kaylin Thomas DO Work Phone: Start: 10-24-2024 Culture bacterial an y source anaerobic iso&id Kaylin Thomas DO Work Phone: Start: 10-24-2024 RBC leukocytes reduced Kaylin Thomas DO Work Phone: Start: 10-24-2024 End: 10-24-2024 TRANSFUSE RED BLOOD CELLS Kaylin Thomas [employer] Work Phone: Start: 10-24-2024 End: 10-24-2024 Comprehensive metabolic panel Leandra David [employer] Work Phone: Start: 10-24-2024 Manual differential performed [Presence] in Blood Leandra David [employer] Work Phone: Start: 10-23-2024 Drug screen quantita tive vancomycin Loni Zambrano MD Work Phone: Start: 10-23-2024 IR NONTUNNELED RAMON TER PLACEMENT Loni Zambrano MD Work Phone: Start: 10-23-2024 Comprehensive metabo lic panel Loni Zambrano MD Work Phone: Start: 10-23-2024 Manual differential performed [Presence] in Blood Loni Zambrano MD Work Phone: Start: 10-22-2024 Bacteria identified in Blood by Culture Loni Zambrano MD Work Phone: Start: 10-22-2024 Assay of troponin quantitative Tuan D Romina DO Work Phone: Start: 10-22-2024 Bacteria identified in Blood by Culture Tuan Montoya DO Work Phone: Start: 10-22-2024 Respiratory pathogen s DNA and RNA panel - Nasopharynx by CHIQUIS with non-probe detection Tuan Montoya DO Work Phone: Start: 10-22-2024 Radiologic exam ches t single view Tuan Montoya DO Work Phone: Start: 10-22-2024 AEROBIC AND ANAEROBI C CULTURE WITH STAIN Tuan Montoya DO Work Phone: Start: 10-22-2024 End: 10-22-2024 Culture bacterial any source anaerobic iso&id Tuan Montoya DO Work Phone: Start: 10-22-2024 Bacteria identified in Blood by Culture Tuan Montoya DO Work Phone: Start: 10-22-2024 Comprehensive metabo lic panel Tuan Montoya DO Work Phone: Start: 10-22-2024 Ecg routine ecg w/le ast 12 lds trcg only w/o i&r Tuan Montoya DO Work Phone: Start: 10-22-2024 Glucose quantitative blood xcpt reagent strip Veronica Abebe MD Work Phone: Start: 09-06-2024 Glucose quantitative blood xcpt reagent strip Levi Geronimo MD Work Phone: Start: 09-06-2024 Renal function panel Jasmeet Toscano MD Work Phone: Start: 09-05-2024 End: 09-05-2024 Renal function panel Teodoro Toscano MD Work Phone: Start: 09-04-2024 Basic metabolic pane l calcium total Teodoro Toscano MD Work Phone: Start: 09-04-2024 Blood count complete automated Teodoro Toscano MD Work Phone: Start: 09-03-2024 Basic metabolic pane l calcium total Teodoro Toscano MD Work Phone: Start: 09-02-2024 Blood count complete auto&auto difrntl wbc Teodoro Toscano MD Work Phone: Start: 09-02-2024 Blood count complete auto&auto difrntl wbc Teodoro Toscano MD Work Phone: Start: 09-02-2024 Basic metabolic pane l calcium total Teodoro Toscano MD Work Phone: Start: 09-01-2024 Blood count complete auto&auto difrntl wbc Teodoro Toscano MD Work Phone: Start: 09-01-2024 Blood count complete auto&auto difrntl wbc Teodoro Toscano MD Work Phone: Start: 09-01-2024 Blood count complete auto&auto difrntl wbc Teodoro Toscano MD Work Phone: Start: 09-01-2024 Basic metabolic pane l calcium total Teodoro Toscano MD Work Phone: Start: 09-01-2024 Drug screen quantita tive vancomycin Teodoro Toscano MD Work Phone: Start: 09-01-2024 End: 09-01-2024 TRANSFUSE RED BLOOD CELLS Arsenio Lombardo MD Work Phone: Start: 09-01-2024 PREPARE RBC Arsenio Lombardo MD Work Phone: Start: 08-31-2024 Blood count complete automated Teodoro Toscano MD Work Phone: Start: 08-31-2024 Blood count complete auto&auto difrntl wbc Teodoro Toscano MD Work Phone: Start: 08-31-2024 Blood count complete auto&auto difrntl wbc Teodoro Toscano MD Work Phone: Start: 08-31-2024 Iaad ia hepatitis b surface antigen Arianna Hogan MD Work Phone: Start: 08-31-2024 Hepatitis b surf ant ibody hbsab Arianna Hogan MD Work Phone: Start: 08-31-2024 Basic metabolic pane l calcium total Teodoro Toscano MD Work Phone: Start: 08-31-2024 Drug screen quantita tive vancomycin Teodoro Toscano MD Work Phone: Start: 08-31-2024 Blood typing serolog ic rh (d) Arsenio Lombardo MD Work Phone: Start: 08-31-2024 Comprehensive metabo lic panel Teodoro Toscano MD Work Phone: Start: 08-29-2024 Performance of Urina ry Filtration, Intermittent, Less than 6 Hours Per Day BICAKODAK VERA BICAKODAK DO~[id number] Start: 08-20-2024 Transfusion of Nonau tologous Red Blood Cells into Peripheral Vein, Percutaneous Approach BICAKODAK VERA BICAKODAK DO~[id number] Start: 08-17-2024 Extraction of Right Hip Muscle, Open Approach BICAKODAK VERA BICAKODAK DO~[id number] Start: 08-15-2024 Insertion of Infusio n Device into Superior Vena Cava, Percutaneous Approach BICAKODAK VERA BICAKODAK DO~[id number] Start: 08-15-2024 Performance of Urina ry Filtration, Intermittent, Less than 6 Hours Per Day BICAKODAK VERA BICAKODAK DO~[id number] Start: 08-15-2024 Respiratory Ventilat ion, 24-96 Consecutive Hours BICAKODAK VERA BICAKODAK DO~[id number] Start: 08-14-2024 Performance of Cardi ac Output, Single, Manual BICAKODAK VERA BICAKODAK DO~[id number] Start: 07-17-2024 Assay of troponin quantitative Victor Manuel Kowalski DO Work Phone: Start: 07-17-2024 Basic metabolic pane l calcium total Victor Manuel Kowalski DO Work Phone: Start: 07-17-2024 Radiologic exam ches t single view Victor Manuel Kowalski DO Work Phone: Start: 07-17-2024 Ecg routine ecg w/le ast 12 lds trcg only w/o i&r Victor Manuel Kowalski DO Work Phone: Start: 07-17-2024 Blood count complete auto&auto difrntl wbc Victor Manuel Kowalski DO Work Phone: Start: 06-29-2024 Ecg routine ecg w/le ast 12 lds trcg only w/o i&r Veronica Abebe MD Work Phone: Start: 06-29-2024 Comprehensive metabo lic panel Kierra Escamilla PA-C Work Phone: Start: 06-29-2024 Ct head/brain w/o co ntrast material Kierra Escamilla PA-C Work Phone: Start: 06-09-2024 End: 06-09-2024 Screening digital breast tomosynthesis bi Roxie Judit Work Phone: Start: 03-03-2024 Glucose quantitative blood xcpt reagent strip Magalys Can MD Work Phone: Start: 03-03-2024 Glucose quantitative blood xcpt reagent strip Magalys Can MD Work Phone: Start: 03-03-2024 Basic metabolic pane l calcium total John Mayes DO Work Phone: Start: 03-02-2024 Glucose quantitative blood xcpt reagent strip John Mayes DO Work Phone: Start: 03-02-2024 Glucose quantitative blood xcpt reagent strip John Mayes DO Work Phone: Start: 03-02-2024 Glucose quantitative blood xcpt reagent strip John Mayes DO Work Phone: Start: 03-02-2024 Assay of troponin quantitative Jacob Laguna DO Work Phone: Start: 03-02-2024 End: 03-02-2024 Assay of troponin quantitative Jacob Laguna DO Work Phone: Start: 03-02-2024 End: 03-02-2024 Glucose quantitative blood xcpt reagent strip Marcus Ragland DO Work Phone: Start: 03-02-2024 Ecg routine ecg w/le ast 12 lds trcg only w/o i&r Marcus Ragland DO Work Phone: Start: 03-02-2024 Basic metabolic pane l calcium total Jacob Laguna DO Work Phone: Start: 03-02-2024 Blood gases any comb ination ph pco2 po2 co2 hco3 Marcus Ragland DO Work Phone: Start: 03-02-2024 Radiologic exam ches t single view Jacob Laguna DO Work Phone: Start: 03-02-2024 Ecg routine ecg w/le ast 12 lds trcg only w/o i&r Jacob Laguna DO Work Phone: Start: 02-20-2024 Comprehensive metabo lic panel Radhajacquelyn Paredesmin DO Work Phone: Start: 02-19-2024 Iaadiadoo not otherw ise specified Radha Paredesmin DO Work Phone: Start: 02-19-2024 Comprehensive metabo lic panel Radha Reggiemin DO Work Phone: Start: 02-19-2024 Assay of troponin quantitative Radhajacquelyn Paredesmin DO Work Phone: Start: 02-19-2024 Smr prim src gram/gi emsa stain bct fungi/cell Radha Reggiemin DO Work Phone: Start: 02-19-2024 Bacteria identified in Blood by Culture Radha Paredesmin DO Work Phone: Start: 02-19-2024 Assay of lactate Radhajacquelyn parrmin DO Work Phone: Start: 02-19-2024 Respiratory pathogen s DNA and RNA panel - Nasopharynx by CHIQUIS with non-probe detection Radha Kevin DO Work Phone: Start: 02-19-2024 Assay of troponin quantitative Chris Huffman MD Work Phone: Start: 02-19-2024 Blood gases any comb ination ph pco2 po2 co2 hco3 Chris Huffman MD Work Phone: Start: 02-19-2024 Ecg routine ecg w/le ast 12 lds trcg only w/o i&r Crhis Huffman MD Work Phone: Start: 02-19-2024 Radiologic exam ches t single view Chris Huffman MD Work Phone: Start: 02-19-2024 Blood gases any comb ination ph pco2 po2 co2 hco3 Chris Huffman MD Work Phone: Start: 02-19-2024 Comprehensive metabo lic panel Chris Huffman MD Work Phone: Start: 02-12-2024 Basic metabolic pane l calcium total Marcus A Gombash DO Work Phone: Start: 01-25-2024 End: 01-25-2024 Colonoscopy flx dx w/collj spec when pfrmd Sayed Isael Gilman MD Work Phone: Start: 01-25-2024 Colonoscopy Mejgon Amaris a DO Work Phone: Start: 01-25-2024 Basic metabolic pane l calcium total Mounika Connell DO Work Phone: Start: 01-24-2024 Guidance for emboliz ation of Vessels Leticia Collier MD Work Phone: Start: 01-24-2024 Blood count hematocrit Leticia Collier MD Work Phone: Start: 01-24-2024 Acute gastrointestin al blood loss imaging Mary Martinez RADIATION ONCOLOGIST - AGENCY TRAINER Work Phone: Start: 01-24-2024 Blood count hematocrit Jessica Murphy DO Work Phone: Start: 01-24-2024 RBC leukocytes reduced Jessica Murphy DO Work Phone: Start: 01-24-2024 End: 01-24-2024 TRANSFUSE RED BLOOD CELLS Jessica lopez DO Work Phone: Start: 01-24-2024 Blood typing serologic abo Jessica Murphy DO Work Phone: Start: 01-24-2024 Basic metabolic pane l calcium total Mounika Leslee Makaylader DO Work Phone: Start: 01-23-2024 Glucose quantitative blood xcpt reagent strip Ronald Schneider DO Work Phone: Start: 01-23-2024 Basic metabolic pane l calcium total Mounika Leslee Benavidesder DO Work Phone: Start: 01-22-2024 Basic metabolic pane l calcium total Mounika Leslee Benavidesder DO Work Phone: Start: 01-22-2024 Hepatitis b surf ant ibody hbsab Sean Castaneda MD Work Phone: Start: 01-22-2024 Iaad ia hepatitis b surface antigen Sean Castaneda MD Work Phone: Start: 01-21-2024 Blood count hematocrit Flaco Schulte Pilger DO Work Phone: Start: 01-21-2024 Compatibility each u nit electronic Flaco Rivera DO Work Phone: Start: 01-21-2024 End: 01-21-2024 TRANSFUSE RED BLOOD CELLS Flaco Schulte Pilger DO Work Phone: Start: 01-21-2024 End: 01-21-2024 Basic metabolic panel calcium total Jessica Courtney Judithisiah DO Work Phone: Start: 01-20-2024 Blood count hematocrit Khloe A Dylan DO Work Phone: Start: 01-20-2024 Blood count hematocrit Koreysunita Patriciovichin MD Work Phone: Start: 01-20-2024 Blood count hematocrit Korey Huang MD Work Phone: Start: 01-20-2024 Radex forearm 2 views C armando Huang MD Work Phone: Start: 01-20-2024 Basic metabolic pane l calcium total Jessica Courtney NitaliAirbiquityi DO Work Phone: Start: 01-19-2024 Blood count hematocrit Jessica Courtney Niisraeli DO Work Phone: Start: 01-19-2024 RFA Celiac artery Vi ews W contrast IA Jessica Courtney NitaliAirbiquityi DO Work Phone: Start: 01-19-2024 Compatibility each u nit electronic jgon Z Natasha DO Work Phone: Start: 01-19-2024 End: 01-19-2024 TRANSFUSE RED BLOOD CELLS jgon Z Natasha DO Work Phone: Start: 01-19-2024 End: 01-19-2024 TRANSFUSE RED BLOOD CELLS jgon Z Natasha DO Work Phone: Start: 01-19-2024 Ct angio abd&plvis c ntrst mtrl w/wo cntrst img Mejgon Z Natasha DO Work Phone: Start: 01-19-2024 Ecg routine ecg w/le ast 12 lds trcg only w/o i&r Mejgon Z Natasha DO Work Phone: Start: 01-19-2024 Blood typing serologic abo Mejgon Z Natasha DO Work Phone: Start: 01-19-2024 End: 01-19-2024 Comprehensive metabolic panel Mejgon Z Natasha DO Work Phone: Start: 08-09-2023 Renal function panel Andrew Sánchez RADIATION ONCOLOGIST - AGENCY TRAINER Work Phone: Start: 08-09-2023 Ecg routine ecg w/le ast 12 lds trcg only w/o i&r Samuel Velasquez DO Work Phone: Start: 03-03-2023 Basic metabolic pane l calcium total Balta Wang MD Work Phone: Start: 03-03-2023 Ecg routine ecg w/le ast 12 lds trcg only w/o i&r Balta Wang MD Work Phone: Start: 01-12-2023 End: 01-12-2023 Screening digital breast tomosynthesis bi Christiano Kirkland Bonyo DO Work Phone: Start: 10-01-2022 Radiologic exam ches t single view Mak Hilario MD Work Phone: Start: 09-30-2022 RF Guidance for alma bhaskar of tunneled CV catheter Radha Meza MD Work Phone: Start: 08-07-2022 Potassium serum plas ma/whole blood Otilio Gonzalo DO Work Phone: Start: 02-22-2022 Lipid 1996 panel - S effie or Plasma Raffy Fernandez MD Work Phone: Start: 11-28-2020 Mammography Raffy smith MD Work Phone: Start: 10-25-2019 Renal biopsy prq trocar/needle Fransisco Valdovinos Work Phone: Start: 10-03-2019 ACTIVATED PTT Fransisco Valdovinos Work Phone: Start: 10-03-2019 [facility] Transcribe Provider Start: 10-03-2019 PROTHROMBIN TIME/PT [facility] Transcribe Provider Start: 07-24-2019 Us retroperitoneal r eal time w/image complete Christiano Kirkland Bonyo Work Phone: Plan of Treatment Date Care Activity Detail Author Start: 01-24-2034 Screening for malign ant neoplasm of colon [facility] Start: 02-22-2027 Lipid panel [facility] Start: 12-20-2025 Creatinine measurement [facility] Start: 12-20-2025 Potassium measurement [facility] Start: 11-22-2025 Creatinine measurement Creatinine Le yoseph [facility] Start: 11-22-2025 Potassium measurement Potassium Leve l [facility] Start: 11-13-2025 Creatinine measurement Creatinine Le yoseph [facility] Start: 11-13-2025 Potassium measurement Potassium Leve l [facility] Start: 11-11-2025 Creatinine measurement [facility] Start: 11-11-2025 Potassium measurement [facility] Start: 09-15-2025 Echocardiography Echocardiogram [facility] Start: 09-15-2025 [facility] Start: 09-06-2025 Creatinine measurement Creatinine Le yoseph [facility] Start: 09-06-2025 Potassium measurement Potassium Leve l [facility] Start: 06-09-2025 Screening for malign ant neoplasm of breast [facility] Start: 01-24-2025 Diabetes: Estimated Glomerular Filtration Rate for Kidney Health Diabetes: Estimated Glomerular Filtration Rate for Kidney Health [facility] Start: 12-18-2024 End: 12-18-2024 Patient encounter procedure 12/18/2024 2:30 PM EDT Office Visit [facility] [address] [place] [phone] Raffy Fernandez MD [address] [place], [place] [id number] [facility] Start: 12-06-2024 End: 12-06-2024 Patient encounter procedure 12/06/2024 11:00 AM EDT Office Visit [facility] [place] [address] [place] [phone] Raffy Fernandez MD [address] [place] [address] [facility] [place] Start: 12-04-2024 COVID-19 Vaccine ( season) COVID-19 Vaccine ( season) [facility] Start: 12-04-2024 Influenza vaccination [facility] Start: 12-04-2024 [facility] Start: 11-27-2024 End: 11-27-2024 Patient encounter procedure 11/27/2024 3:30 PM EDT Office Visit [facility] [place] [address] [place] [phone] Raffy Fernandez MD [address] [place], [place] [phone] [facility] [place] Start: 11-22-2024 End: 11-22-2024 ambulatory [facility] [place] Start: 11-22-2024 End: 11-22-2024 Patient encounter procedure 11/22/2024 9:15 AM EDT Office Visit [facility] [place] [address] [place] [address] Raffy Fernandez MD [address] [place], [place] [phone] [facility] [place] Start: 11-14-2024 End: 12-14-2024 CBC panel - Blood by Automated count [facility] Lab Routine Anemia due to other cause, not classified Expected: 11/14/2024 (Approximate), Expires: 12/14/2024 [facility] System Work Phone: Comment on above: Expected: 11/14/2024 (Approximate), Expires: 12/14/2024 Start: 04-05-2024 Medicare Advantage A nnual Wellness Visit Medicare Advantage Annual Wellness Visit [facility] Start: 04-05-2024 [facility] Start: 01-13-2024 Screening for malign ant neoplasm of breast Mammogram [facility] Start: 12-05-2023 COVID-19 Vaccine ( season) COVID-19 Vaccine ( season) [facility] Start: 12-05-2023 COVID-19 Vaccine ( season) COVID-19 Vaccine ( season) [facility] Start: 12-05-2023 Influenza vaccination Influenza Vacc ine (#1) [facility] Start: 12-05-2023 [facility] Start: 10-25-2023 Hepatitis B Vaccines (5 of 5 - Risk Dialysis Recombivax 3-dose series) Hepatitis B Vaccines (5 of 5 - Risk Dialysis Recombivax 3-dose series) [facility] Start: 10-25-2023 [facility] Start: 06-25-2023 End: 06-24-2024 RFA Guidance for atherectomy of AV fistula-- W contrast IV IR fistulagram Imaging Routine End stage renal disease (HCC) Expected: 06/25/2023, Expires: 06/24/2024 [facility] System Work Phone: Comment on above: Expected: 06/25/2023 , Expires: 06/24/2024 Start: 04-05-2023 Medicare [employer] ([employer]) A nnual Wellness Visit Medicare Advantage Annual Wellness Visit [facility] Start: 02-22-2023 Lipid panel Lipid Panel [facility] Start: 02-21-2023 Diabetes mellitus screening [facility] Start: 02-21-2023 Hemoglobin A1c measurement Herminia betes: Hemoglobin A1C [facility] Start: 12-04-2022 COVID-19 Vaccine () COVID-19 Vaccine () [facility] Start: 12-04-2022 Influenza vaccination [facility] Start: 08-26-2022 End: 08-26-2022 Patient encounter procedure 08/26/2022 Office Visit Vascular Surgery Raffy Fernandez MD [address] [place] [address] [address] [facility] Start: 08-07-2022 End: 08-07-2022 Admission to same day surgery center 08/07/2022 Surgery Procedural Raffy Fernandez MD [address] [place] [id number] LEFT UPPER EXTREMITY ARTERIOVENOUS GRAFT PLACEMENT [57114 (CPT )] [facility] Comment on above: LEFT UPPER EXTREMITY ARTERIOVENOUS GRAFT PLACEMENT [19347 (CPT )] Start: 08-07-2022 End: 08-07-2022 Crtj arven fstl xcp dir arven anast nonautog grf CREATION AV FISTULA WITH NONAUTOGEMOUS GRAFT Dependence on renal dialysis (HCC) End stage renal disease (HCC) 08/07/2022 9:30 AM EDT [facility] Operating Room Start: 08-07-2022 Subsequent hospital visit by physician 08/07/2022 Hospital Encounter Procedural Raffy Fernandez MD [address] [place] [address] [facility] MA[facility] OR Start: 08-03-2022 End: 08-03-2022 Patient encounter procedure 08/03/2022 Office Visit Vascular Surgery Raffy Fernandez MD [address] [place] [phone] [facility] Start: 07-17-2022 End: 07-17-2022 Admission to same day surgery center 07/17/2022 Surgery Procedural Raffy Fernandez MD [address] [place] [phone] LEFT UPPER EXTREMITY ARTERIOVENOUS GRAFT PLACEMENT [71895 (CPT )] [facility] MAIN OR Comment on above: LEFT UPPER EXTREMITY ARTERIOVENOUS GRAFT PLACEMENT [43150 (CPT )] Start: 07-17-2022 End: 07-17-2022 Anesthesia consultation 07/17/2022 Anesthesia Event Procedural Mary Wilkinson, RADIATION ONCOLOGIST - AGENCY TRAINER [address] [place] [address] [facility] MAIN OR Start: 07-17-2022 End: 07-17-2022 Crtj arven fstl xcp dir arven anast nonautog grf CREATION AV FISTULA WITH NONAUTOGEMOUS GRAFT Dependence on renal dialysis (HCC) End stage renal disease (HCC) 07/17/2022 11:30 AM EDT [facility] Operating Room Start: 07-17-2022 Subsequent hospital visit by physician 07/17/2022 Hospital Encounter Procedural Raffy Fernandez MD [address] [place] [phone] [facility] MAIN OR Start: 07-16-2022 Hepatitis B Vaccines (2 of 2 - CpG 2-dose series) Hepatitis B Vaccines (2 of 2 - CpG 2-dose series) [facility] Start: 05-24-2022 Hemoglobin A1c measurement Herminia betes: Hemoglobin A1C [facility] Start: 04-05-2022 ADVANCE DIRECTIVE DISCUSSION ADVANCE DIRECTIVE DISCUSSION [facility] Start: 04-05-2022 DEPRESSION ASSESSMENT DEPRESSION ASS ESSMENT [facility] Start: 12-04-2021 Influenza vaccination C [facility] Start: 11-28-2021 Screening for malign ant neoplasm of breast Mammogram [facility] Start: 04-30-2021 COVID-19 Vaccine (4 - Booster for Moderna series) COVID-19 Vaccine (4 - Booster for Moderna series) [facility] Start: 04-30-2021 COVID-19 Vaccine (4 - Moderna series) COVID-19 Vaccine (4 - Moderna series) [facility] Start: 10-16-2020 COVID-19 VACCINE (3 - Booster for Moderna series) COVID-19 VACCINE (3 - Booster for Moderna series) [facility] Start: 12-05-2019 Influenza vaccination M [place], [place] Start: 09-03-2018 Breast cancer screen Breast cancer s seth [place], [place] Start: 2015 ADVANCE DIRECTIVE DISCUSSION ADVANCE DIRECTIVE DISCUSSION [facility] Start: 2015 BONE DENSITY BONE DENSITY [facility] Start: 2015 Pneumococcal 65+ yea rs Vaccine (1 of 1 - PPSV23) Pneumococcal 65+ years Vaccine (1 of 1 - PPSV23) [place] Start: 2015 Pneumococcal Vaccine : 65+ Years (1 of 1 - PCV) Pneumococcal Vaccine: 65+ Years (1 of 1 - PCV) [facility] Start: 2015 PNEUMOVAX AGE 65 AND OVER WITH 5YR LOOKBACK (#1) PNEUMOVAX AGE 65 AND OVER WITH 5YR LOOKBACK (#1) [facility] Start: 2010 HEPATITIS B (1 of 3 - Risk 3-dose series) HEPATITIS B (1 of 3 - Risk 3-dose series) [facility] Start: 2010 RSV High Risk: (Elde rly (60+) or Population) (1 - Risk 60-74 years 1-dose series) RSV High Risk: (Elderly (60+) or Population) (1 - Risk 60-74 years 1-dose series) [facility] Start: 2010 RSV Immunization age d 60 or older (1 - 1-dose 60+ series) RSV Immunization aged 60 or older (1 - 1-dose 60+ series) [facility] Start: 2010 RSV Immunization for Adults (1 - Risk 60-74 years 1-dose series) RSV Immunization for Adults (1 - Risk 60-74 years 1-dose series) [facility] Start: 2010 [facility] Start: 2005 DEXA (modify frequen cy per FRAX score) DEXA (modify frequency per FRAX score) [place] Start: 2000 Colon cancer screen colonoscopy Colon cancer screen colonoscopy [place], [place] Start: 2000 Pneumococcal Vaccine : 50+ Years (1 of 1 - PCV) Pneumococcal Vaccine: 50+ Years (1 of 1 - PCV) [facility] Start: 2000 Shingles Vaccine (1 of 2) Zaman gles Vaccine (1 of 2) [place] Start: 2000 SHINGRIX VACCINE (1 of 2) ZAMAN GRIX VACCINE (1 of 2) [facility] Start: 2000 Tuberculosis screening COLOREC NELLA CANCER SCREENING,SEE MODIFIER [facility] Start: 2000 Zoster Vaccines (1 of 2) Zoste r Vaccines (1 of 2) [facility] Start: 2000 [facility] Start: 1995 COLOGUARD (FIT-DNA) COLOGUARD (FIT-D NA) [facility] Start: 1995 Colonoscopy COLONOSCOPY [facility] Start: 1995 COLORECTAL CANCER SCREENING COLORECTAL CANCER SCREENING [facility] Start: [address] COLONOGRAPHY [facility] Start: 1995 DIABETES SCREEN DIABETES SCREEN [facility] Start: 1995 FECAL OCCULT BLOOD FECAL OCCULT BLOO D [facility] Start: 1995 LIPID SCREEN LIPID SCREEN [facility] Start: 1995 SIGMOIDOSCOPY SIGMOIDOSCOPY [facility] Start: 1990 Lipid screen Lipid screen [place], [place] Start: 1990 Mammography MAMMOGRAM [facility] Start: 1990 Screening for malign ant neoplasm of breast Mammogram [facility] Start: 1972 DTaP/Tdap/Td Vaccine s (1 - Tdap) DTaP/Tdap/Td Vaccines (1 - Tdap) [facility] Start: 1969 DTaP/Tdap/Td vaccine (1 - Tdap) DTaP/Tdap/Td vaccine (1 - Tdap) [place] Start: 1969 DTaP/Tdap/Td Vaccine s (1 - Tdap) DTaP/Tdap/Td Vaccines (1 - Tdap) [facility] Start: 1969 Pneumococcal Vaccine : 50+ Years (1 of 2 - PCV) Pneumococcal Vaccine: 50+ Years (1 of 2 - PCV) [facility] Start: 1969 SHINGRIX VACCINE (1 of 2) ZAMAN GRIX VACCINE (1 of 2) [facility] Start: 1969 Urine microalbumin profile DTAP,TDAP ,TD (1 - Tdap) [facility] Start: 1969 Zoster Vaccines (1 of 2) Zoste r Vaccines (1 of 2) [facility] Start: 1969 [facility] Start: 1968 Diabetes mellitus screening Diabetes Screening [facility] Start: 1968 Diabetes: Urine Albumin-Creatinine Ratio for Kidney Health Diabetes: Urine Albumin-Creatinine Ratio for Kidney Health [facility] Start: 1968 HEPATITIS C SCREENING HEPATITIS C [facility] Start: 1968 Hepatitis C screening Hepatitis C [facility] Start: 1962 Depression Monitoring Depression Mon itoring [facility] Start: 1962 Depression Screening Depression Scre ening [facility] Start: 1962 [facility] Start: 1960 Diabetic foot examination Diabetes: Foot Exam [facility] Start: 1960 Glaucoma screening Diabetes: R etinopathy Screening [facility] Start: 1960 Preventive dental service Diabetes: Dental Exam [facility] Start: 1956 Pneumococcal Vaccine : 65+ Years (1 - PCV) Pneumococcal Vaccine: 65+ Years (1 - PCV) [facility] Start: 1956 Pneumococcal Vaccine : 65+ Years (1 of 2 - PCV) Pneumococcal Vaccine: 65+ Years (1 of 2 - PCV) [facility] Start: 1956 PNEUMOCOCCAL: 65+ (1 - PCV) PNEUMOCOCCAL: 65+ (1 - PCV) [facility] Start: 1951 HEPATITIS A (1 of 2 - Risk 2-dose series) HEPATITIS A (1 of 2 - Risk 2-dose series) [facility] Start: 1950 Echocardiography Echocardiogram [facility] Start: 1950 Hepatitis C screen Hepatitis C [facility] [place], [place] Start: 1950 Lipid panel Lipid Panel [facility] Start: 1950 Medicare Advantage A nnual Wellness Visit (AWV) Medicare Advantage Annual Wellness Visit (AWV) [facility] Start: 1950 Medicare Annual Well ness Visit Medicare Annual Wellness Visit (AWV) [facility] Start: 1950 Screening for malign ant neoplasm of colon [facility] Start: 1950 Screening for osteoporosis [facility] Bacteria identified in Blood by Culture [facility] End: 02-19-2024 Bacteria identified in Lower respiratory specimen by Aerobe culture [facility] Comment on above: Once (Lab) for 1 Occ urrences starting 02/19/2024 until 02/19/2024 Basic metabolic 2000 panel - Serum or Plasma Basic metabolic panel Lab Routine Daily (Lab) until discontinued starting 08/31/2024, 5 completed [facility] Service Area Work Phone: Comment on above: Daily (Lab) until di scontinued starting 08/31/2024, 5 completed End: 09-07-2024 CBC panel - Blood by Automated count [facility] Work Phone: Comment on above: Morning draw (Lab) f or 3 Days starting 09/05/2024 until 09/07/2024, 1 completed Morning draw (Lab) f or 3 Occurrences starting 09/05/2024 until 09/07/2024 End: 08-31-2024 Consult to Interventional Radiology Consult to Interventional Radiology Imaging STAT Once for 1 Occurrences starting 08/31/2024 until 08/31/2024 [facility] Work Phone: Comment on above: Once for 1 Occurrenc es starting 08/31/2024 until 08/31/2024 ECG 12 lead ECG 12 lead CV E CG STAT 08/09/2023 4:05 PM [facility]T [facility]: Electrocardiogram, 1 2-lead PRN ACS symptoms Electrocardiogram, 12-lead PRN ACS symptoms ECG Routine As needed until discontinued starting 08/31/2024 [facility] Work Phone: Comment on above: As needed until disc ontinued starting 08/31/2024 End: 12-13-2024 Erythrocyte sedimentation rate [employer] Work Phone: End: 02-19-2024 Hemodialysis Hemodialysis inpatient 3 Hours Dialysis Routine Once for 1 Occurrences starting 02/19/2024 until 02/19/2024 [id number] [facility] Work Phone: Comment on above: Once for 1 Occurrenc es starting 02/19/2024 until 02/19/2024 End: 08-31-2024 Hemodialysis Hemodialysis inpatient 3.5 Hours Dialysis Routine Once for 1 Occurrences starting 08/31/2024 until 08/31/2024 [facility] Service Area Work Phone: Comment on above: Once for 1 Occurrenc es starting 08/31/2024 until 08/31/2024 End: 09-02-2024 Hemodialysis Hemodialysis inpatient 3.5 Hours Dialysis Routine Once for 1 Occurrences starting 09/02/2024 until 09/02/2024 [facility] Work Phone: Comment on above: Once for 1 Occurrenc es starting 09/02/2024 until 09/02/2024 End: 09-05-2024 Hemodialysis Hemodialysis inpatient 3.5 Hours Dialysis Routine Once for 1 Occurrences starting 09/05/2024 until 09/05/2024 [facility] Service Area Work Phone: Comment on above: Once for 1 Occurrenc es starting 09/05/2024 until 09/05/2024 End: 09-07-2024 Hemodialysis Hemodialysis inpatient 3.5 Hours Dialysis Routine Once for 1 Occurrences starting 09/07/2024 until 09/07/2024 [facility] Service Area Work Phone: Comment on above: Once for 1 Occurrenc es starting 09/07/2024 until 09/07/2024 End: 09-07-2024 Renal function 2000 panel - Serum or Plasma Renal Function Panel Lab Routine Morning draw (Lab) for 3 Occurrences starting 09/05/2024 until 09/07/2024, 2 completed [facility] Work Phone: Comment on above: Morning draw (Lab) f or 3 Occurrences starting 09/05/2024 until 09/07/2024, 2 completed SURGICAL PATHOLOGY SURGICAL PATH OLOGY Lab Routine 10/25/2019 [facility] Immunizations Immunization Date Immunization Notes Care Provider Fa cili 01-03-2024 influenza virus vaccine, unspecified formulation CHAPARRO Moore MD Work Phone: [email or web address] 01-16-2023 influenza virus vaccine, unspecified formulation Brown Kaur DO Work Phone: [email or web address] 08-21-2020 Moderna SARS-CoV-2 Vaccination Raffy Fernandez MD Work Phone: [email or web address] 07-24-2020 Moderna SARS-CoV-2 Vaccination Raffy Fernandez MD Work Phone: [email or web address] NEGATED: Highlighted row has not occurred!03-03-2024 Seasonal trivalent influenza vaccine, adjuvanted, preservative free Marcus Ragland DO Work Phone: [email or web address] Comment on above: Deferred: Patient Re fused - pt states she alread had one Payers Date Payer Category Payer Self-pay 2023 Medicare (Managed Care) [employer] [id number] 2023 Medicare HMO [id number] 2022 Unknown [id number] 2021 Medicare [id number] 2019 Medicare UHC AARP MEDICAR E [facility] AARP MEDICARE HMO [id number] 2019-Present HMO [id number] 2018 Private Health Insurance [id number] 1950 Unknown [id number] 1950 Unknown [id number] [id number] 1950 Unknown [id number] 1950 Unknown [id number] Unknown [id number] Unknown [id number] Unknown [id number] [id number] Social History Date Type Detail Facility Tobacco smoking stat [facility] Unknown [facility] [place] [place] Start: 1950 Sex Assigned At Not on file [place], [place] Exposure to SARS-CoV -2 (event) Unable to assess [facility] Start: 06-14-2022 End: 08-31-2024 Exposure to SARS-CoV-2 (event) Not sure [facility] Tobacco smoking stat [facility] Tobacco smoking consumption unknown [facility] Start: 02-22-2022 End: 08-31-2024 Tobacco smoking status NHIS Never smoked tobacco [facility] Start: 02-22-2022 End: 08-31-2024 Tobacco use and exposure Smokeless tobacco non-user [facility] Start: 06-24-2022 End: 12-06-2024 Alcohol intake Current drinker of alcohol (finding) [facility] Start: 06-24-2022 End: 12-09-2024 Alcohol intake [facility] Start: 02-22-2022 History SDOH Alcohol Frequency 5 [facility] Start: 02-22-2022 History SDOH Alcohol Std Drinks 1 [facility] Start: 02-22-2022 End: 08-07-2022 History SDOH IPV Fear 2 [facility] Start: 07-10-2022 Alcohol Comment weekly [facility] Start: 08-07-2022 End: 12-09-2024 Humiliation, Afraid, Rape, and Kick questionnaire [HARK] [facility] Within the last year , have you been afraid of your partner or ex-partner? No [facility] How often to you hav e a drink containing alcohol? 4 or more times a week [facility] How many standard dr inks containing alcohol do you have on a typical day? 1 or 2 [facility] How often do you hav e 6 or more drinks on 1 occasion? Never [facility] In the past 12 month s, has lack of transportation kept you from medical appointments or from getting medications? No [facility] Start: 11-03-2021 Sex Female (finding) [facility] How often to you hav e a drink containing alcohol? Monthly or less [facility] How often to you hav e a drink containing alcohol? 2-3 time sa week [facility] (I/We) worried wheth er (my/our) food would run out before (I/we) got money to buy more. Never true [facility] How often do you hav e 6 or more drinks on 1 occasion? Less than monthly [facility] Do you belong to any clubs or organizations such as evangelical groups, unions, fraternal or athletic groups, or school groups? Yes [facility] Are you now , , , , never or living with a partner? [facility] Do you feel stress - tense, restless, nervous, or anxious, or unable to sleep at night because your mind is troubled all the time - these days [OSQ] Very much [facility] Medical Equipment Procedure Code Equipment Code Equipment Origin al Text Equipment Identifier Dates [id number] Start: 08-07-2022 [id number] Start: 01-24-2024 Functional Status Date Assessment Result Facility 10-31-2024 Total score [AUDIT-C] [facility] 08-31-2024 [place] - suicide s everity rating scale screener - recent [C-SSRS] [facility] Work Phone: 08-31-2024 Total score [AUDIT-C] 1 09/01/19 12:15 AM EDT Fe Luong RN [facility] Work Phone: 08-31-2024 Patient Health Quest ionnaire 2 item (PHQ-2) [Reported] [facility] Work Phone: [facility] Work Phone: [facility] Clinical Notes 12-31-2020 to 12-28-2024 Casi Rodgers RN - 12/28/2024 10:26 AM EDTCasi Rodgers RN - 12/28/2024 10:26 AM Karen Kaur DO - 12/28/2024 9:57 AM EDTDischarradha Kaur, DO - 12/28/2024 9:57 AM EDT Note Date & Type Note Facility 12-28-2024 Emergency department Note Called [facility] and spoke with nurse Tyra at the facility to inform therm of pt pending return. Nurse became upset and questioned why.Informed her that pt had been assessed for AMS which she is A&O x 4 at this time and needs to return for her scheduled dialysis. Pt slid down on to her buttocks a few days ago as report. No signs of injury noted. [facility] 12-28-2024 Emergency department Note Called [facility] and spoke with nurse Tyra at the facility to inform therm of pt pending return. Nurse became upset and questioned why.Informed her that pt had been assessed for AMS which she is A&O x 4 at this time and needs to return for her scheduled dialysis. Pt slid down on to her buttocks a few days ago as report. No signs of injury noted. EMERGENCY DEPARTMENT ENCOUNTER Pt Name: Apoorva Gonazlez Birthdate 1950 Date of evaluation: 12/28/2024 ED Provider: Brown Kaur DO CHIEF COMPLAINT Chief Complaint Patient presents with Altered Mental Status Per [place] Latisha, pt was altered last night. Sent to ED for eval. Pt denies any complaints. HISTORY OF PRESENT ILLNESS (Location/Symptom, Timing/Onset, Context/Setting, Quality, Duration, Modifying Factors, Severity) Note limiting factors. I wore appropriate PPE for the entirety of this encounter. HPI Apoorva Gonzalez is a 74 y.o. who presents to the emergency department with chief complaint of altered mental status. Patient sent from a nursing facility due to reportedly having altered mental status last night. They said that she has intermittently been appearing confused at nighttime. In the ED patient is alert and oriented x 4. She does not have any new complaints. Says that a few days ago she slid out of her bed and fell onto her buttock but did not hit her head or lose consciousness. She does not have any headache, weakness in the extremities, chest pain, dyspnea, vomiting, bloody stools, abdominal pain, urinary symptoms or other new injuries. Patient is on dialysis and has been compliant. Nursing Notes were reviewed. Limitations to history: None Outside historians: EMS REVIEW OF SYSTEMS Review of Systems Pertinent positives and negatives as per HPI. PAST MEDICAL HISTORY Medical History[1] SURGICAL HISTORY Surgical History[2] CURRENT MEDICATIONS Current Discharge Medication List CONTINUE these medications which have NOT CHANGED Details acetaminophen (Tylenol) 500 MG tablet Take 2 tablets (1,000 mg) by mouth every 8 hours for 10 days. amLODIPine (Norvasc) 10 MG tablet Take 1 tablet (10 mg) by mouth daily. atorvastatin (Lipitor) 40 MG tablet Take 1 tablet (40 mg) by mouth Nightly. Qty: 30 tablet, Refills: 11 B complex-vitamin C-folic acid (Nephro-Coleen) 0.8 MG tablet Take 0.8 mg by mouth daily. cholecalciferol (Vitamin D-3) 125 MCG (5000 UT) capsule Take 5,000 Units by mouth daily. hydrALAZINE (Apresoline) 10 MG tablet Take 1 tablet (10 mg) by mouth 3 times daily. levETIRAcetam (Keppra) 500 MG tablet Take 1 tablet (500 mg) by mouth daily. Qty: 30 tablet, Refills: 1 Lidocaine 4 % patch Place 1 patch on the skin daily. melatonin 5 MG tablet Take 1 tablet (5 mg) by mouth Nightly. QUEtiapine (SEROquel) 25 MG tablet Take 0.5 tablets (12.5 mg) by mouth 2 times daily as needed (first line for agitation, [place] PRN Seroquel for ONLY if danger to self/others/treatment). sevelamer (Renagel) 800 MG tablet Take 800 mg by mouth 3 times daily (with meals). Swallow tablet whole; do not crush, break, or chew. Thiamine HCl (vitamin B-1) 250 MG tablet Take 250 mg by mouth daily. ALLERGIES Patient has no known allergies. FAMILY HISTORY Family History[3] SOCIAL HISTORY Social History[4] SCREENINGS Lety Coma Scale Best Eye Response: Spontaneous Best Verbal Response: Oriented Best Motor Response: Follows commands [place] Coma Scale Score: 15 PHYSICAL EXAM ED Triage Vitals [12/28/24 1000] Temp Heart Rate Resp BP 37.1 C (98.7 F) 91 14 (!) 162/76 SpO2 Temp src Heart Rate Source Patient Position 100 % -- -- Sitting BP Location FiO2 (%) Right arm -- Physical Exam Vitals and nursing note reviewed. Constitutional: General: She is not in acute distress. Appearance: She is well-developed. She is not ill-appearing or toxic-appearing. HENT: Head: Normocephalic and atraumatic. Nose: Nose normal. Eyes: Extraocular Movements: Extraocular movements intact. Conjunctiva/sclera: Conjunctivae normal. Pupils: Pupils are equal, round, and reactive to light. Cardiovascular: Rate and Rhythm: Normal rate and regular rhythm. Pulses: Normal pulses. Pulmonary: Effort: Pulmonary effort is normal. No respiratory distress. Breath sounds: Normal breath sounds. Abdominal: General: There is no distension. Palpations: Abdomen is soft. Tenderness: There is no abdominal tenderness. Musculoskeletal: General: No tenderness (Pelvis stable to compression. No hip tenderness.). Normal range of motion. Cervical back: Normal range of motion and neck supple. No tenderness. Skin: General: Skin is warm and dry. Capillary Refill: Capillary refill takes less than 2 seconds. Neurological: General: No focal deficit present. Mental Status: She is alert and oriented to person, place, and time. Mental status is at baseline. Cranial Nerves: No cranial nerve deficit. Sensory: No sensory deficit. Motor: No weakness. Coordination: Coordination normal. DIAGNOSTIC RESULTS Interpretation per the Radiologist below, if available at the time of this note: No orders to display ED BEDSIDE ULTRASOUND: Performed by ED Physician - none LABS: Labs Reviewed POCT GLUCOSE METER UNSOLICITED RESULTS - Normal Result Value Glucose 80 Narrative: Performed by: Haley Kirk, [address] [place], [place] [id number] CLIA ID: [id number] All other labs were within normal range or not returned as of this dictation. EMERGENCY DEPARTMENT COURSE and DIFFERENTIAL DIAGNOSIS/MDM: Vitals: Vitals: 12/28/24 1000 BP: (!) 162/76 BP Location: Right arm Patient Position: Sitting Pulse: 91 Resp: 14 Temp: 37.1 C (98.7 F) SpO2: 100% Diagnoses as of 12/28/24 1027 Transient alteration of awareness The patient presented with chief complaint of altered mental status. The differential diagnosis associated with this patient's presentation includes sundowning, closed head injury, UTI. Our workup consisted of ordering/reviewing: Chart review and exam. Patient is in agreement with this plan. Medications - No data to display REVAL: Patient presenting to the ED from nursing facility for reportedly having transient altered mental status in the evening. In the ED patient's vitals are stable and she is alert and oriented x 4. She is neurologically intact. She has no complaints at this time. She is a dialysis patient and has been compliant. I do not believe she needs further workup at this time. Suspect that her symptoms were due to sundowning. She will be discharged to her nursing facility with return precautions. CRITICAL CARE TIME CONSULTS: None PROCEDURES: Unless otherwise noted below, none Procedures Patients symptoms are consistent with sepsis, severe sepsis, or septic shock (If yes use .sepsiscoremeasure): FINAL IMPRESSION 1. Transient alteration of awareness DISPOSITION Discharge 12/28/2024 10:19:34 AM PATIENT REFERRED TO: Roxie Spain [address] [place] [address] DISCHARGE MEDICATIONS: Current Discharge Medication List (Comment: Please note this report has been produced using speech recognition software and may contain errors related to that system including errors in grammar, punctuation, and spelling, as well as words and phrases that may be inappropriate. If there are any questions or concerns please feel free to contact the dictating provider for clarification.) Brown Kaur DO (electronically signed) Emergency Medicine Provider [1] Past Medical History: Diagnosis Date Chronic kidney disease (CKD) Hemodialysis patient (CMS/HCC) (HCC) Wednesday, , Wednesday History of blood transfusion 02/27/2022 Hypertension Seizure (HCC) Developed seizure-like activity on 02/24 during hospital admission [2] Past Surgical History: Procedure Laterality Date AV FISTULA PLACEMENT Left 08/07/2022 COLONOSCOPY N/A 01/25/2024 Performed by Chrissy Gilman MD at [facility] ENDOSCOPY IR CVC TUNNELED DIALYSIS CATHETER PLACEMENT 02/27/2022 IR CVC TUNNELED CATHETER PLACEMENT 02/27/2022 Candis Andrade MD [facility] SPECIAL PROCEDURES IR EMBOLIZATION 01/24/2024 IR EMBOLIZATION 01/24/2024 Jovan Glynn MD [facility] SPECIAL PROCEDURES VASCULAR SURGERY Left 11/02/2024 EXCISION OF LEFT UPPER EXTREMITY INFECTED GRAFT (JIM) VASCULAR SURGERY Left 11/05/2024 REVISION OR REPAIR, AV FISTULA (JIM) [3] Family History Problem Relation Name Age of Onset Dementia Mother Stroke Father Prostate cancer Brother 69 Breast cancer Cousin 32 Stomach cancer Mother's Sister 70 [4] Social History Socioeconomic History Marital status: Tobacco Use Smoking status: Never Smokeless tobacco: Never Vaping Use Vaping status: Never Used Substance and Sexual Activity Alcohol use: Yes Alcohol/week: 2.0 standard drinks of alcohol Types: 2 Glasses of wine per week Comment: weekly Drug use: Never Social Drivers of Health Financial Resource Strain: Low Risk (12/09/2024) Overall Financial Resource Strain (CARDIA) Difficulty of Paying Living Expenses: Not hard at all Food Insecurity: No Food Insecurity (12/09/2024) Hunger Vital Sign Worried About Running Out of Food in the Last Year: Never true Ran Out of Food in the Last Year: Never true Transportation Needs: No Transportation Needs (12/09/2024) PRAPARE - Transportation Lack of Transportation (Medical): No Lack of Transportation (Non-Medical): No Physical Activity: Insufficiently Active (12/09/2024) Exercise Vital Sign Days of Exercise per Week: 1 day Minutes of Exercise per Session: 10 min Stress: Stress Concern Present (12/09/2024) [place] [employer] - Occupational Stress Questionnaire Feeling of Stress : Very much Social Connections: Moderately Integrated (12/09/2024) Social Connection and Isolation Panel [NHANES] Frequency of Communication with Friends and Family: More than three times a week Frequency of Social Gatherings with Friends and Family: Three times a week Attends [employer] Services: 1 to 4 times per year Active Member of Clubs or Organizations: Yes Attends Club or Organization Meetings: Never Marital Status: Intimate Partner Violence: Not At Risk (12/09/2024) Humiliation, Afraid, Rape, and Kick questionnaire Fear of Current or Ex-Partner: No Emotionally Abused: No Physically Abused: No Sexually Abused: No Housing Stability: Low Risk (12/09/2024) Housing Stability Vital Sign Unable to Pay for Housing in the Last Year: No Number of Times Moved in the Last Year: 0 Homeless in the Last Year: No Brown Kaur DO 12/28/24 1027 documented in this encounter [facility] 12-28-2024 Hospital Discharge instructions Brown Kaur DO - 12/28/2024 10:20 AM EDT Schedule an appointment to follow-up with your primary care physician for evaluation of your confusion at night. Return to the ER for fevers, chest pain, urinary symptoms or worsening confusion. documented in this encounter [facility] 12-28-2024 Physician Emergency department Note EMERGENCY DEPARTMENT ENCOUNTER Pt Name: Apoorva Gonzalez Birthdate 1950 Date of evaluation: 12/28/2024 ED Provider: Brown Kaur DO CHIEF COMPLAINT Chief Complaint Patient presents with Altered Mental Status Per [place] jay Good was altered last night. Sent to ED for eval. Pt denies any complaints. HISTORY OF PRESENT ILLNESS (Location/Symptom, Timing/Onset, Context/Setting, Quality, Duration, Modifying Factors, Severity) Note limiting factors. I wore appropriate PPE for the entirety of this encounter. HPI Apoorva Gonzalez is a 74 y.o. who presents to the emergency department with chief complaint of altered mental status. Patient sent from a nursing facility due to reportedly having altered mental status last night. They said that she has intermittently been appearing confused at nighttime. In the ED patient is alert and oriented x 4. She does not have any new complaints. Says that a few days ago she slid out of her bed and fell onto her buttock but did not hit her head or lose consciousness. She does not have any headache, weakness in the extremities, chest pain, dyspnea, vomiting, bloody stools, abdominal pain, urinary symptoms or other new injuries. Patient is on dialysis and has been compliant. Nursing Notes were reviewed. Limitations to history: None Outside historians: EMS REVIEW OF SYSTEMS Review of Systems Pertinent positives and negatives as per HPI. PAST MEDICAL HISTORY Medical History[1] SURGICAL HISTORY Surgical History[2] CURRENT MEDICATIONS Current Discharge Medication List CONTINUE these medications which have NOT CHANGED Details acetaminophen (Tylenol) 500 MG tablet Take 2 tablets (1,000 mg) by mouth every 8 hours for 10 days. amLODIPine (Norvasc) 10 MG tablet Take 1 tablet (10 mg) by mouth daily. atorvastatin (Lipitor) 40 MG tablet Take 1 tablet (40 mg) by mouth Nightly. Qty: 30 tablet, Refills: 11 B complex-vitamin C-folic acid (Nephro-Coleen) 0.8 MG tablet Take 0.8 mg by mouth daily. cholecalciferol (Vitamin D-3) 125 MCG (5000 UT) capsule Take 5,000 Units by mouth daily. hydrALAZINE (Apresoline) 10 MG tablet Take 1 tablet (10 mg) by mouth 3 times daily. levETIRAcetam (Keppra) 500 MG tablet Take 1 tablet (500 mg) by mouth daily. Qty: 30 tablet, Refills: 1 Lidocaine 4 % patch Place 1 patch on the skin daily. melatonin 5 MG tablet Take 1 tablet (5 mg) by mouth Nightly. QUEtiapine (SEROquel) 25 MG tablet Take 0.5 tablets (12.5 mg) by mouth 2 times daily as needed (first line for agitation, [place] PRN Seroquel for ONLY if danger to self/others/treatment). sevelamer (Renagel) 800 MG tablet Take 800 mg by mouth 3 times daily (with meals). Swallow tablet whole; do not crush, break, or chew. Thiamine HCl (vitamin B-1) 250 MG tablet Take 250 mg by mouth daily. ALLERGIES Patient has no known allergies. FAMILY HISTORY Family History[3] SOCIAL HISTORY Social History[4] SCREENINGS [place] Coma Scale Best Eye Response: Spontaneous Best Verbal Response: Oriented Best Motor Response: Follows commands [place] Coma Scale Score: 15 PHYSICAL EXAM ED Triage Vitals [12/28/24 1000] Temp Heart Rate Resp BP 37.1 C (98.7 F) 91 14 (!) 162/76 SpO2 Temp src Heart Rate Source Patient Position 100 % -- -- Sitting BP Location FiO2 (%) Right arm -- Physical Exam Vitals and nursing note reviewed. Constitutional: General: She is not in acute distress. Appearance: She is well-developed. She is not ill-appearing or toxic-appearing. HENT: Head: Normocephalic and atraumatic. Nose: Nose normal. Eyes: Extraocular Movements: Extraocular movements intact. Conjunctiva/sclera: Conjunctivae normal. Pupils: Pupils are equal, round, and reactive to light. Cardiovascular: Rate and Rhythm: Normal rate and regular rhythm. Pulses: Normal pulses. Pulmonary: Effort: Pulmonary effort is normal. No respiratory distress. Breath sounds: Normal breath sounds. Abdominal: General: There is no distension. Palpations: Abdomen is soft. Tenderness: There is no abdominal tenderness. Musculoskeletal: General: No tenderness (Pelvis stable to compression. No hip tenderness.). Normal range of motion. Cervical back: Normal range of motion and neck supple. No tenderness. Skin: General: Skin is warm and dry. Capillary Refill: Capillary refill takes less than 2 seconds. Neurological: General: No focal deficit present. Mental Status: She is alert and oriented to person, place, and time. Mental status is at baseline. Cranial Nerves: No cranial nerve deficit. Sensory: No sensory deficit. Motor: No weakness. Coordination: Coordination normal. DIAGNOSTIC RESULTS Interpretation per the Radiologist below, if available at the time of this note: No orders to display ED BEDSIDE ULTRASOUND: Performed by ED Physician - none LABS: Labs Reviewed POCT GLUCOSE METER UNSOLICITED RESULTS - Normal Result Value Glucose 80 Narrative: Performed by: Haley Kirk, [address] [place] [address] [place] [address] CLIA ID: [id number] All other labs were within normal range or not returned as of this dictation. EMERGENCY DEPARTMENT COURSE and DIFFERENTIAL DIAGNOSIS/MDM: Vitals: Vitals: 12/28/24 1000 BP: (!) 162/76 BP Location: Right arm Patient Position: Sitting Pulse: 91 Resp: 14 Temp: 37.1 C (98.7 F) SpO2: 100% Diagnoses as of 12/28/24 1027 Transient alteration of awareness The patient presented with chief complaint of altered mental status. The differential diagnosis associated with this patient's presentation includes sundowning, closed head injury, UTI. Our workup consisted of ordering/reviewing: Chart review and exam. Patient is in agreement with this plan. Medications - No data to display REVAL: Patient presenting to the ED from nursing facility for reportedly having transient altered mental status in the evening. In the ED patient's vitals are stable and she is alert and oriented x 4. She is neurologically intact. She has no complaints at this time. She is a dialysis patient and has been compliant. I do not believe she needs further workup at this time. Suspect that her symptoms were due to sundowning. She will be discharged to her nursing facility with return precautions. CRITICAL CARE TIME CONSULTS: None PROCEDURES: Unless otherwise noted below, none Procedures Patients symptoms are consistent with sepsis, severe sepsis, or septic shock (If yes use .sepsiscoremeasure): FINAL IMPRESSION 1. Transient alteration of awareness DISPOSITION Discharge 12/28/2024 10:19:34 AM PATIENT REFERRED TO: Roxie Spain [id number] [place] [id number] DISCHARGE MEDICATIONS: Current Discharge Medication List (Comment: Please note this report has been produced using speech recognition software and may contain errors related to that system including errors in grammar, punctuation, and spelling, as well as words and phrases that may be inappropriate. If there are any questions or concerns please feel free to contact the dictating provider for clarification.) Brown Kaur DO (electronically signed) Emergency Medicine Provider [1] Past Medical History: Diagnosis Date Chronic kidney disease (CKD) Hemodialysis patient (CMS/HCC) (HCC) Wednesday, , Wednesday History of blood transfusion 02/27/2022 Hypertension Seizure (HCC) Developed seizure-like activity on 02/24 during hospital admission [2] Past Surgical History: Procedure Laterality Date AV FISTULA PLACEMENT Left 08/07/2022 COLONOSCOPY N/A 01/25/2024 Performed by Chrissy Gilman MD at [facility] ENDOSCOPY IR CVC TUNNELED DIALYSIS CATHETER PLACEMENT 02/27/2022 IR CVC TUNNELED CATHETER PLACEMENT 02/27/2022 Candis Andrade MD [facility] SPECIAL PROCEDURES IR EMBOLIZATION 01/24/2024 IR EMBOLIZATION 01/24/2024 Jovan Glynn MD [facility] SPECIAL PROCEDURES VASCULAR SURGERY Left 11/02/2024 EXCISION OF LEFT UPPER EXTREMITY INFECTED GRAFT (JIM) VASCULAR SURGERY Left 11/05/2024 REVISION OR REPAIR, AV FISTULA (JIM) [3] Family History Problem Relation Name Age of Onset Dementia Mother Stroke Father Prostate cancer Brother 69 Breast cancer Cousin 32 Stomach cancer Mother's Sister 70 [4] Social History Socioeconomic History Marital status: Tobacco Use Smoking status: Never Smokeless tobacco: Never Vaping Use Vaping status: Never Used Substance and Sexual Activity Alcohol use: Yes Alcohol/week: 2.0 standard drinks of alcohol Types: 2 Glasses of wine per week Comment: weekly Drug use: Never Social Drivers of Health Financial Resource Strain: Low Risk (12/09/2024) Overall Financial Resource Strain (CARDIA) Difficulty of Paying Living Expenses: Not hard at all Food Insecurity: No Food Insecurity (12/09/2024) Hunger Vital Sign Worried About Running Out of Food in the Last Year: Never true Ran Out of Food in the Last Year: Never true Transportation Needs: No Transportation Needs (12/09/2024) PRAPARE - Transportation Lack of Transportation (Medical): No Lack of Transportation (Non-Medical): No Physical Activity: Insufficiently Active (12/09/2024) Exercise Vital Sign Days of Exercise per Week: 1 day Minutes of Exercise per Session: 10 min Stress: Stress Concern Present (12/09/2024) [place] [facility] [employer] [facility] - Occupational Stress Questionnaire Feeling of Stress : Very much Social Connections: Moderately Integrated (12/09/2024) Social Connection and Isolation Panel [NHANES] Frequency of Communication with Friends and Family: More than three times a week Frequency of Social Gatherings with Friends and Family: Three times a week Attends [employer] Services: 1 to 4 times per year Active Member of Clubs or Organizations: Yes Attends Club or Organization Meetings: Never Marital Status: Intimate Partner Violence: Not At Risk (12/09/2024) Humiliation, Afraid, Rape, and Kick questionnaire Fear of Current or Ex-Partner: No Emotionally Abused: No Physically Abused: No Sexually Abused: No Housing Stability: Low Risk (12/09/2024) Housing Stability Vital Sign Unable to Pay for Housing in the Last Year: No Number of Times Moved in the Last Year: 0 Homeless in the Last Year: No Brown Kaur DO 12/28/24 1027 [facility] 12-20-2024 Nurse Note Attempted to call report to [facility]. No answer. Discharge order placed. IVS removed. Transport here to take pt to SNF. Patient Name: Apoorva Gonzalez Patient : 1950 Acct: [id number] Date of Admission: 12/08/2024 Room[facility]Bed: [facility] A Code Status: DNR-CCA Allergies: Allergies[1] Diagnosis: Problem List[2] Treatment: Hemodialysis 1:1 Priority: Routine Location: Bedside Diabetic: Yes NPO: No Isolation Precautions: Dialysis Consent for Treatment Verified: Yes Blood Consent Verified: Not Applicable ICEBOAT: Identify, Consent, Equipment, HepB Status, Orders Complete, Access Verified, Timeliness Second Clinician Verifying: Lorna Medina RN Time out performed prior to access at 1434 Report Received from Primary RN at 1340 Primary RN (First Initial, Last Name, Title): Lorna Medina Rn Incapacitated Nurse Education Completed: Yes JL HBsAg ONLY: Date Drawn: 01/22/2024 Results: Negative HBsAb: Date Drawn: 01/22/2024 Results: Immune >10 Order Dialyzer: Nipro Na+ Modeling: Not Applicable Dialysate Temperature (C): 36 Blood Flow Rate (BFR): 400 Dialysate Flow Rate (DFR): 600 Access to be Utilized Access: Tunneled Catheter Location: Internal Jugular Side: Left Needle gauge: Not Applicable + Bruit/Thrill: Not Applicable First Use X-ray Verified: Not Applicable OK to use line order: present on admission Site Assessment: Signs and Symptoms of Infection/Inflammation: None If yes: Not Applicable Dressing: Dry and Intact Site Prep: Medical Aseptic Technique Dressing Changed this Treatment: Yes If yes, by whom: Juli MARIE Date of Last Dressing Change: 12/20/[address]?: Yes Red Alcohol Caps in place?: Yes Gauze Dressing?: No Non-Dialysis Use?: No Comment: Flows: Good and Patent If access problem, who was notified: Pre and Post-Assessment Patient Vitals for the past 8 hrs: Level of Consciousness Oriented X Heart Rhythm Respiratory Pattern O2 Device Bilateral Breath Sounds Skin Color Skin Condition/Temp Appetite Abdomen Inspection Bowel Sounds (All Quadrants) Edema Generalized Edema RLE Edema LLE Edema Pain Interventions 12/20/24 1409 Alert (0) 4 Regular Other (Comment) None (Room air) Clear Other (Comment) Warm;Dry Good Soft;Rounded Active Right lower extremity;Left lower extremity +2 +2 +2 Medication (See MAR) 12/20/24 1750 Alert (0) 3 Regular -- None (Room air) Clear -- Warm;Dry -- Soft;Rounded Active Left lower extremity;Right lower extremity -- +1 +1 -- Labs Lab Results Component Value Date/Time WBC 12.1 (H) 12/20/2024 0017 HGB 7.1 (L) 12/20/2024 0017 HGB 9.3 12/11/2024 2030 HCT 20.9 (L) 12/20/2024 0017 PLT 237 12/20/2024 0017 NA 134 (L) 12/20/2024 001 K 4.3 12/20/202416 CL 106 12/20/202416 CO2 21 (L) 12/20/2024 001 BUN 15 12/20/202416 CREATININE 2.84 (H) 12/20/202416 CALCIUM 6.5 (L) 12/20/202416 PHOS 2.3 12/14/2024 0240 IV Drips and Rate/Dose Continuous Meds[3] Safety - Before each treatment: Dialysis Machine No.: [id number] RO Machine Number: [id number] Dialyzer Lot No.: [id number] Tubing Lot Number: [id number] All Connections Secure: Yes Venous Parameters Set: Yes Arterial Parameters Set: Yes NS Bag: Yes Saline Line Double Clamped: Yes Dialyzer: Nipro Prime Volume (mL): 200 mL RO Machine Number: [id number] RO Machine Log Sheet Completed: Yes Machine Alarm Self Test: Passed, Completed (1410) (12/20/24 141) Air Foam Detector: Tested, Proper Function Extracorporeal Circuit Tested for Integrity: Yes Machine Conductivity: 13.7 Manual Conductivity: 13.6 Manual Ph: 7.2 Bleach Test (Neg): Yes Bath Temperature: 36 C (96.8 F) Conductivity Meter Serial #: [id number] Machine Functioning Alarm Free? Yes Dialysis Bath: K+ (Potassium): 3 Ca+ (Calcium): 2.5 Na+ (Sodium): 135 HCO3 (Bicarb): 35 Bicarbonate Concentrate Lot No.: [id number] Acid Concentrate Lot No.: [id number] Chlorine Testing - Before each treatment and every 4 hours: Time On: 1439 Time Off: 1739 Treatment Goal: 2L Weight Height: 164 cm (5' 4.57) (12/11/24 0646) Weight: 52.8 kg (116 lb 4.8 oz) (12/11/24 101) BMI (Calculated): 19.61 (12/11/24 101) 1st check: less than 0.1 ppm at: 1400 2nd check: less than 0.1 ppm at: 1604 3rd check: Not Applicable (if greater than 0.1 ppm, then check every 30 minutes from secondary) Access Flows and Pressures Patient Vitals for the past 8 hrs: Blood Flow Rate (mL/min) Ultrafiltration Rate (ml/hr) Arterial Pressure (mmHg) Venous Pressure (mmHg) TMP DFR Access Visible Intra-Hemodialysis Comments 12/20/24 1441 200 mL/min 830 ml/hr -60 mmHg 30 mmHg 90 600 Yes treatment started, lines secure, call light within pts reach 12/20/24 1445 400 mL/min 830 ml/hr -100 mmHg 100 mmHg 80 600 Yes bfr to 400 12/20/24 1500 400 mL/min 830 ml/hr -110 mmHg 100 mmHg 90 600 Yes pt watching tv, uf removal 310 12/20/24 1515 400 mL/min 830 ml/hr -110 mmHg 110 mmHg 80 600 Yes pt talking on phone, uf removal 532 12/20/24 1530 400 mL/min 830 ml/hr -130 mmHg 110 mmHg 80 600 Yes tech at bedside, uf removal 720 12/20/24 1545 400 mL/min 830 ml/hr -130 mmHg 110 mmHg 80 600 Yes bicarb changed, pt resting 12/20/24 1600 400 mL/min 830 ml/hr -130 mmHg 120 mmHg 80 600 Yes pt resting,uf removal 1113 12/20/24 1615 400 mL/min 830 ml/hr -130 mmHg 130 mmHg 80 600 Yes pt resting, uf removal 1365 12/20/24 1630 400 mL/min 830 ml/hr -130 mmHg 170 mmHg 80 600 Yes pt resting,uf removal 1549 12/20/24 1645 400 mL/min 830 ml/hr -130 mmHg 220 mmHg 80 600 Yes pt watching tv, uf removal 18612/20/24 1700 400 mL/min 830 ml/hr -130 mmHg 240 mmHg 80 600 Yes pt resting, uf removal 201512/20/24 1715 400 mL/min 830 ml/hr -130 mmHg 280 mmHg 90 600 Yes pt watching tv, uf removal 21512/20/24 1730 400 mL/min 830 ml/hr -130 mmHg 270 mmHg 100 600 Yes family at bedside, uf removal 241012/20/24 1739 250 mL/min -- -- -- -- 600 -- treatment complete, uf removal 2500 Vital Signs Patient Vitals for the past 24 hrs: BP Temp Temp src Pulse Resp SpO2 12/20/24 1750 (!) 182/78 36.7 C (98 F) -- 101 16 98 % 12/20/24 1739 131/51 -- -- 100 -- -- 12/20/24 1730 156/78 -- -- 102 -- -- 12/20/24 1715 (!) 169/90 -- -- 104 -- -- 12/20/24 1700 (!) 165/91 -- -- 98 -- -- 12/20/24 1645 (!) 173/85 -- -- 95 -- -- 12/20/24 1630 139/84 -- -- 96 -- -- 12/20/24 1615 155/83 -- -- 92 -- -- 12/20/24 1600 (!) 161/87 -- -- 92 -- -- 12/20/24 1545 (!) 170/92 -- -- 94 -- -- 12/20/24 1530 (!) 172/81 -- -- 96 -- -- 12/20/24 1515 141/78 -- -- 95 -- -- 12/20/24 1500 (!) 164/79 -- -- 87 -- -- 12/20/24 1445 (!) 167/86 -- -- 89 -- -- 12/20/24 1441 (!) 172/84 -- -- 92 -- -- 12/20/24 1409 155/75 36.9 C (98.4 F) -- 93 16 100 % 12/20/24 0753 (!) 169/75 36.9 C (98.5 F) Temporal 92 20 98 % 12/19/24 2217 144/87 -- -- 91 -- -- 12/19/24 1922 (!) 179/82 36.9 C (98.5 F) Temporal 112 18 100 % Post-Dialysis Arterial Catheter Locking Solution: normal saline lock Venous Catheter Locking Solution: normal saline lock Post-Treatment Procedures: Blood returned, Catheter Capped, clamped with Saline x2 ports Machine Disinfection Process: Acid/Vinegar Clean, Heat Disinfect, Exterior Machine Disinfection Rinseback Volume (mL): 300 mL Total Liters Processed (L/min): 65.6 L/min Dialyzer Clearance: Moderately streaked Heparin Amount Administered During Treatment (mL): 0 units Hemodialysis Intake (ml): 500 ml Hemodialysis Output (ml): 2500 ml NET Removed (ml): 2000 ml Tolerated Treatment: Good Interventions Taken: (none) Patient Response to Treatment: tolerated tx well Physician Notified: No Patient Disposition: Other (Comment) (remain in room) Charge: $ IP Hemodialysis Charge: Hemodialysis Provider Notification Provider Notification Reason for Communication: Restraint/Seclusion (pt taken out of bilateral restraints at 8pm yesterday and left in just one left wrist restraint- need order updated to reflect use of only one wrist restraint) Provider Name: Dori OWEN Provider Role: CRISTO Method of Communication: Secure chat Response: See orders Notification Date: 12/17/24 Notification Time: 2012 Provider Role: CRISTO Method of Communication: Secure chat Response: See orders Notification Time: 2012 Handoff complete and report given to Primary RN at 1800. Primary RN (First Initial, Last Name, Title): Lorna Medina Rn Education Person Educated: Patient Knowledge Base: Substantial Barriers to Learning?: None Preferred method of Learning: Oral Topic(s): Emergency, Access Care, Signs and Symptoms of Infection, Fluid Management, Albumin, Procedural, Medications, Treatment Options, Potassium, Diet, and Transplant Teaching Tools: Explanation Response to Education: Verbalized Understanding [1] No Known Allergies [2] Patient Active Problem List Diagnosis Hypertensive emergency Gastrointestinal hemorrhage, unspecified gastrointestinal hemorrhage type Anemia Pulmonary edema, acute (HCC) Shortness of breath COVID-19 Edema of left lower extremity Sepsis, due to unspecified organism, unspecified whether acute organ dysfunction present (HCC) Seizures (HCC) ESRD (end stage renal disease) (HCC) Dialysis patient (HCC) Wound dehiscence End stage congestive heart failure (HCC) Fall, initial encounter Fall (on)(from) sidewalk curb, initial encounter Moderate malnutrition (CMS/HCC) ([facility]) [3] Wound Care consulted for Pressure Injury Prevention. Pt's Arnol score= 14 on 12/18/2024 Pt in chair for assessment. Pt currently followed by Wound MILLINERY DEPARTMENT MANAGER group for wound to Left buttock stage 3 pressure injury. For Left buttock stage 3 pressure injury wound assessment and treatment plan, please see Wound/Ostomy MILLINERY DEPARTMENT MANAGER progress notes. Pt's pressure points assessed: Pt's Heels, Back, Elbows, Occiput and Ears are all blanching and intact. Pt has abdominal binder in place and skin underneath is C/D/I. Right elbow skin noted with dressing in place. Pt asked to replace. Removed dressing, cleansed with normal saline, adaptic applied, and 4 cm x 4 cm foam dressing obtained and applied. Prevention Measures in place, including: [place] sheet with pillows/wedges (in place), Bilateral foam heel protectors (obtained for pt and applied to pt), Heels elevated off chair on pillows, Bilateral Elbows (off loaded on pillow), Sacral foam (NA see Wound Care MILLINERY DEPARTMENT MANAGER treatment plan), Upper Spine foam (obtained and applied), Zinc/Moisture Barrier ointment (in place), Moisture absorbant pad (in place),Waffle chair cushion (in place). Instructed pt on pressure injury prevention and importance of turning/postioning every 2 hrs while in bed and every 15 min while sitting in chair. Pt verbalized understanding,however recommend reinforcement and assistance from nursing staff. Skin Care precaution order set in place. Dietitian consult in place. PT/OT consult in place. D/W sales technician skin assessment, preventions, and interventions implemented. Will continue to follow pt. Please [place]era for any questions or concerns. DEWAYNE Lozano, RN Patient Name: Apoorva Gonzalez Patient : 1950 Acct: [id number] Date of Admission: 12/08/2024 Room[facility]Bed: [facility] A Code Status: DNR-CCA Allergies: Allergies[1] Diagnosis: Problem List[2] Treatment: Hemodialysis 1:1 Priority: Routine Location: Bedside Diabetic: Yes NPO: No Isolation Precautions: Contact Consent for Treatment Verified: Yes Blood Consent Verified: Not Applicable ICEBOAT: Identify, Consent, Equipment, HepB Status, Orders Complete, Access Verified, Timeliness (o2 and suction functional at bedside) Second Clinician Verifying: Isabela Rich RN Time out performed prior to access at 1500. Report Received from Primary RN at 1330. Primary RN (First Initial, Last Name, Title): Isabela Rich Incapacitated Nurse Education Completed: Yes HBsAg ONLY: Date Drawn: January 22, 2024 Results: Negative HBsAb: Date Drawn: January 22, 2024 Results: Immune >10 Order Dialyzer: Nipro Na+ Modeling: Not Applicable Dialysate Temperature (C): 36 Blood Flow Rate (BFR): 400 Dialysate Flow Rate (DFR): 600 Access to be Utilized Access: Tunneled Catheter Location: Internal Jugular Side: Left Needle gauge: Not Applicable + Bruit/Thrill: Not Applicable First Use X-ray Verified: Not Applicable OK to use line order: Not Applicable Site Assessment: Signs and Symptoms of Infection/Inflammation: None If yes: Not Applicable Dressing: Dry and Intact Site Prep: Medical Aseptic Technique Dressing Changed this Treatment: No If yes, by whom: NA - not changed today Date of Last Dressing Change: December 14, [address]?: Yes Red Alcohol Caps in place?: Yes Gauze Dressing?: No Non-Dialysis Use?: No Comment: Flows: Good If access problem, who was notified: Pre and Post-Assessment Patient Vitals for the past 8 hrs: Level of Consciousness Oriented X Heart Rhythm Respiratory Pattern O2 Device Bilateral Breath Sounds Skin Color Skin Condition/Temp Abdomen Inspection Bowel Sounds (All Quadrants) Edema Generalized Edema RUE Edema LUE Edema RLE Edema LLE Edema Pre-Hemodialysis Comments 12/18/24 1142 -- -- -- -- -- Diminished -- -- Soft;Rounded -- Generalized -- -- -- -- -- -- 12/18/24 1500 Alert (0) 1 Regular Other (Comment) None (Room air) Clear;Diminished Other (Comment) Warm;Dry Taut;Rounded Active -- -- Mild Mild +2 +2 incapacitated nurse review, patient education complete. Call light in reach 12/18/241814 Alert (0) 2 Regular Other (Comment) None (Room air) Clear;Diminished Other (Comment) Warm;Dry Rounded Active Generalized +1 Mild Mild +2 +2 -- Labs Lab Results Component Value Date/Time WBC 19.3 (H) 12/18/2024 0420 HGB 8.8 (L) 12/18/2024 0907 HGB 9.3 12/11/2024 2030 HCT 25.1 (L) 12/18/2024 09 PLT 327 12/18/2024 0420 NA 128 (L) 12/18/2024 0420 K 4.4 12/18/2024 0420 CL 97 (L) 12/18/2024 0420 CO2 25 12/18/2024 0420 BUN 18 12/18/2024 0420 CREATININE 3.46 (H) 12/18/2024 042 CALCIUM 7.3 (L) 12/18/2024 042 PHOS 2.3 12/14/2024 0240 IV Drips and Rate/Dose Continuous Meds[3] Safety - Before each treatment: Dialysis Machine No.: [id number] RO Machine Number: [id number] Dialyzer Lot No.: [id number] Tubing Lot Number: [id number] All Connections Secure: Yes Venous Parameters Set: Yes Arterial Parameters Set: Yes NS Bag: Yes Saline Line Double Clamped: Yes Dialyzer: Nipro Prime Volume (mL): 200 mL RO Machine Number: [id number] RO Machine Log Sheet Completed: Yes Machine Alarm Self Test: Completed, Passed (at 1455) (12/18/24 1500) Air Foam Detector: Tested, Proper Function, pH Reading Extracorporeal Circuit Tested for Integrity: Yes Machine Conductivity: 13.7 Manual Conductivity: 13.8 Manual Ph: 7.2 Bleach Test (Neg): Yes (water check negative at 1615) Bath Temperature: 36 C (96.8 F) Conductivity Meter Serial #: [id number] Machine Functioning Alarm Free? Yes Dialysis Bath: K+ (Potassium): 3 Ca+ (Calcium): 2.5 Na+ (Sodium): 135 HCO3 (Bicarb): 35 Bicarbonate Concentrate Lot No.: [id number] Acid Concentrate Lot No.: [id number] Chlorine Testing - Before each treatment and every 4 hours: Time On: 1508 Time Off: 1810 Treatment Goal: EVEN Weight Height: 164 cm (5' 4.57) (12/11/24 0646) Weight: 52.8 kg (116 lb 4.8 oz) (12/11/24 1014) BMI (Calculated): 19.61 (12/11/24 1014) 1st check: less than 0.1 ppm at: 1300 2nd check: less than 0.1 ppm at: 1615 3rd check: Not Applicable (if greater than 0.1 ppm, then check every 30 minutes from secondary) Access Flows and Pressures Patient Vitals for the past 8 hrs: Blood Flow Rate (mL/min) Ultrafiltration Rate (ml/hr) Arterial Pressure (mmHg) Venous Pressure (mmHg) TMP DFR Access Visible Intra-Hemodialysis Comments 12/18/24 1508 400 mL/min 830 ml/hr -150 mmHg 110 mmHg 70 600 Yes Tx initisted, 200 ml NS prime given, call light in reach 12/18/24 1515 400 mL/min 830 ml/hr -150 mmHg 110 mmHg 60 600 Yes access visible, lines secured. fluid removal 73ml 12/18/24 1530 400 mL/min 830 ml/hr -160 mmHg 130 mmHg 60 600 Yes patient alert, denies needs. fluid removal 328ml 12/18/24 1545 400 mL/min 830 ml/hr -160 mmHg 110 mmHg 50 600 Yes patient alert talking to staff, fluid removal 530ml 12/18/24 1600 400 mL/min 830 ml/hr -160 mmHg 110 mmHg 60 600 Yes eyes closed patient resting. fluid removal 709ml 12/18/24 1615 400 mL/min 830 ml/hr -150 mmHg 110 mmHg 50 600 Yes lines secured. call light in reach. fluid removal 938ml 12/18/24 1630 400 mL/min 830 ml/hr -160 mmHg 120 mmHg 50 600 Yes family at bedside, fluid removal 1140ml 12/18/24 1645 400 mL/min 830 ml/hr -160 mmHg 130 mmHg 70 600 Yes bicarb jug changed, fluid removal 1321ml 12/18/24 1700 400 mL/min 830 ml/hr -160 mmHg 130 mmHg 60 600 Yes BP falling, patient alert lying supine, fluid removal 1589ml; 12/18/24 1715 400 mL/min 830 ml/hr -160 mmHg 150 mmHg 50 600 Yes patient alert, fluid removal 1765ml 12/18/24 1730 400 mL/min 830 ml/hr -150 mmHg 160 mmHg 50 600 Yes access visible, fluid removal 1982ml 12/18/24 1745 400 mL/min 830 ml/hr -160 mmHg 170 mmHg 60 600 Yes no voiced complaints, fluid removal 2170ml 12/18/24 1800 400 mL/min 830 ml/hr -160 mmHg 170 mmHg 50 600 Yes call light in reach. pt alert, fluid removal 2388ml 12/18/24 1810 400 mL/min 830 ml/hr -160 mmHg 170 mmHg 50 600 Yes tx complete 300 ml NS rinseback given. fluid removal 2500ml Vital Signs Patient Vitals for the past 24 hrs: BP Temp Temp src Pulse Resp SpO2 12/18/24 1815 (!) 179/98 36.1 C (96.9 F) -- 103 16 -- 12/18/24 1810 150/93 -- -- 107 -- -- 12/18/24 1800 (!) 164/71 -- -- 108 -- -- 12/18/24 1745 149/82 -- -- 106 -- -- 12/18/24 1730 (!) 172/90 -- -- 106 -- -- 12/18/24 1715 154/81 -- -- 105 -- -- 12/18/24 1700 (!) 135/46 -- -- 102 -- -- 12/18/24 1645 (!) 173/91 -- -- 100 -- -- 12/18/24 1630 157/90 -- -- 104 -- -- 12/18/24 1615 151/84 -- -- 101 -- -- 12/18/24 1600 159/87 -- -- 102 -- -- 12/18/24 1545 (!) 168/92 -- -- 103 -- -- 12/18/24 1530 (!) 170/80 -- -- 102 -- -- 12/18/24 1515 (!) 162/81 -- -- 98 -- -- 12/18/24 1508 (!) 163/77 -- -- 99 -- -- 12/18/24 1500 (!) 169/80 36.2 C (97.1 F) -- 100 18 97 % 12/18/24 1243 152/86 36.1 C (97 F) Temporal 103 16 98 % 12/18/24 1200 (!) 167/73 -- -- 97 16 98 % 12/18/24 1142 (!) 165/70 36.4 C (97.6 F) Tympanic 100 18 99 % 12/18/24 0745 (!) 164/86 36.7 C (98.1 F) Temporal 111 18 100 % 12/17/242101 160/94 36.8 C (98.2 F) Temporal 109 18 100 % 12/17/242030 (!) 167/94 36.8 C (98.2 F) Temporal 67 16 100 % Post-Dialysis Arterial Catheter Locking Solution: normal saline Venous Catheter Locking Solution: normal saline Post-Treatment Procedures: Blood returned, Catheter Capped, clamped with Saline x2 ports Machine Disinfection Process: Acid/Vinegar Clean, Exterior Machine Disinfection, Heat Disinfect Rinseback Volume (mL): 300 mL Total Liters Processed (L/min): 67.2 L/min Dialyzer Clearance: Lightly streaked Heparin Amount Administered During Treatment (mL): 0 units Hemodialysis Intake (ml): 500 ml Hemodialysis Output (ml): 2500 ml NET Removed (ml): 2000 ml Tolerated Treatment: Good Interventions Taken: (none) Patient Response to Treatment: tolerated without difficulty Physician Notified: No Patient Disposition: Other (Comment) (remain in [facility]) Charge: $ IP Hemodialysis Charge: Hemodialysis Provider Notification Provider Notification Reason for Communication: Restraint/Seclusion (pt taken out of bilateral restraints at 8pm yesterday and left in just one left wrist restraint- need order updated to reflect use of only one wrist restraint) Provider Name: oDri OWEN Provider Role: CRISTO Method of Communication: Secure chat Response: See orders Notification Date: 12/17/24 Notification Time: 2012 Provider Role: CRISTO Method of Communication: Secure chat Response: See orders Notification Time: 2012 Handoff complete and report given to Primary RN at 1610. Primary RN (First Initial, Last Name, Title): Isabela Rich RN Education Person Educated: Patient Knowledge Base: Minimal Barriers to Learning?: Yes, including confusion Preferred method of Learning: Oral Topic(s): Procedural Teaching Tools: Explanation Response to Education: Verbalized Understanding and Requires Follow-up [1] No Known Allergies [2] Patient Active Problem List Diagnosis Hypertensive emergency Gastrointestinal hemorrhage, unspecified gastrointestinal hemorrhage type Anemia Pulmonary edema, acute (HCC) Shortness of breath COVID-19 Edema of left lower extremity Sepsis, due to unspecified organism, unspecified whether acute organ dysfunction present (HCC) Seizures (HCC) ESRD (end stage renal disease) (HCC) Dialysis patient (HCC) Wound dehiscence End stage congestive heart failure (HCC) Fall, initial encounter Fall (on)(from) sidewalk curb, initial encounter Moderate malnutrition (CMS/HCC) (HCC) [3] Per Dr Malissa bush to draw repeat H&H after all 3 units are received. Per rapid, ICU is unable to place line today. GARMENT ALTERATION EXAMINER put 18g in upper arm to attempt to be drawn off once 3rd unit of blood is complete 2nd unit currently running. If IV is unable to draw back, they said to contact them again. Non Emergent rapid paged for stat labs per general surgery. Pt hard stick. Pt known to rapid. Labs sent. Hemoglobin 4.2. Talked with Dr. Leonardo about a possible line for patient due to the issues with getting access/blood. Messaged skilled nursing professional Nany OWEN regarding not being able to get 2345 lactic or H&H from earlier. Waiting on rapid. Asked about consult for line placement, instructed to followup with dayshift primary team. Rapid able to get lactic and H&H. Lab called with critical H&H of 4.1/12.6. Lab asking if patient on IVF. Patient has been getting D5 d/t not eating and BS dropping for past two days. Lab states it seems as though specimen contaminated and recommended repeat H&H. Messaged skilled nursing professional Nany OWEN about critical. Per MILLINERY DEPARTMENT MANAGER repeat H&H ordered for morning, no transfusion orders at this time d/t high possibility of lab being inaccurate. Patients assessment unchanged from earlier. VS stable. Abdomen has not become more distended than what it has been. Notified gen surgery of H&H/lab issue also. Patient very hard stick. Able to get labs after several sticks from multiple nurses. Lactic and CMP resulted. H&H clotted. 3 nurses have attempted. Unable to get cbc. Spoke with rapid regarding getting H&H when they have a chance. Messaged DR Leonardo about patient needing multiple sticks for labs. Crushed patients meds and put in pudding. Patient only took some of meds, and refused the rest. Patient Name: Apoorva Gonzalez Patient : 1950 Acct: [id number] Date of Admission: 12/08/2024 Room[facility]Bed: [facility] A Code Status: DNR-CCA Allergies: Allergies[1] Diagnosis: Problem List[2] Treatment: Hemodialysis 1:1 Priority: Routine Location: Bedside Diabetic: Yes NPO: Yes Isolation Precautions: Contact Consent for Treatment Verified: Yes Blood Consent Verified: Not Applicable ICEBOAT: Identify, Consent, Equipment, HepB Status, Orders Complete, Access Verified, Timeliness Second Clinician Verifying: Lorna Medina RN Time out performed prior to access at 1540. Report Received from Primary RN at 1540 Primary RN (First Initial, Last Name, Title): Lorna Medina RN Incapacitated Nurse Education Completed: Yes HBsAg ONLY: Date Drawn: September 18, 2024 Results: Negative HBsAb: Date Drawn: January 22, 2024 Results: Immune >10 Order Dialyzer: Nipro Na+ Modeling: Not Applicable Dialysate Temperature (C): 36 Blood Flow Rate (BFR): 400 Dialysate Flow Rate (DFR): 600 Access to be Utilized Access: Tunneled Catheter Location: Internal Jugular Side: Left Needle gauge: Not Applicable + Bruit/Thrill: Not Applicable First Use X-ray Verified: Not Applicable OK to use line order: Not Applicable Site Assessment: Signs and Symptoms of Infection/Inflammation: None If yes: Not Applicable Dressing: Dry and Intact Site Prep: Medical Aseptic Technique Dressing Changed this Treatment: No If yes, by whom: NA - not changed today Date of Last Dressing Change: December 14, [address]?: Yes Red Alcohol Caps in place?: Yes Gauze Dressing?: No Non-Dialysis Use?: No Comment: HD machine passed test/ ph of 7.0/ Conductivity of 13.6 Flows: Good and Patent If access problem, who was notified: Pre and Post-Assessment Patient Vitals for the past 8 hrs: Level of Consciousness Oriented X Heart Rhythm O2 Device Bilateral Breath Sounds Skin Condition/Temp Appetite Abdomen Inspection Bowel Sounds (All Quadrants) 12/15/24 1540 Alert (0) x1 Regular None (Room air) Diminished Warm;Dry Poor Soft Active 12/15/24 1900 Alert (0) x1 Regular None (Room air) Clear Cool;Dry Poor Soft Active Labs Lab Results Component Value Date/Time WBC 12.0 (H) 12/15/2024 0802 HGB 8.3 (L) 12/15/2024 0802 HGB 9.3 12/11/2024 2030 HCT 25.6 (L) 12/15/2024 0802 PLT 363 12/15/2024 0802 NA 134 (L) 12/15/2024 0802 K 4.4 12/15/2024 0802 CL 101 12/15/2024 0802 CO2 24 12/15/2024 0802 BUN 12 12/15/2024 0802 CREATININE 2.80 (H) 12/15/2024 0802 CALCIUM 7.8 (L) 12/15/2024 0802 PHOS 2.3 12/14/2024 0240 IV Drips and Rate/Dose Continuous Meds[3] Safety - Before each treatment: Dialysis Machine No.: [id number] Machine Number: [id number] Dialyzer Lot No.: [id number] Tubing Lot Number: [id number] All Connections Secure: Yes Venous Parameters Set: Yes Arterial Parameters Set: Yes NS Bag: Yes Saline Line Double Clamped: Yes Dialyzer: Nipro Prime Volume (mL): 200 mL RO Machine Number: [id number] RO Machine Log Sheet Completed: Yes Machine Alarm Self Test: Completed, Passed (12/15/24 1540) Air Foam Detector: Tested, Proper Function, pH Reading Extracorporeal Circuit Tested for Integrity: Yes Machine Conductivity: 13.6 Manual Conductivity: 13.6 Manual Ph: 7 Bleach Test (Neg): Yes Bath Temperature: 36 C (96.8 F) Conductivity Meter Serial #: [id number] Machine Functioning Alarm Free? Yes Dialysis Bath: K+ (Potassium): 4 Ca+ (Calcium): 2.5 Na+ (Sodium): 135 HCO3 (Bicarb): 35 Bicarbonate Concentrate Lot No.: [id number] Acid Concentrate Lot No.: [id number] Chlorine Testing - Before each treatment and every 4 hours: Time On: 1545 Time Off: 1845 Treatment Goal: EVEN Weight Height: 164 cm (5' 4.57) (12/11/24 0646) Weight: 52.8 kg (116 lb 4.8 oz) (12/11/24 1014) BMI (Calculated): 19.61 (12/11/24 1014) 1st check: less than 0.1 ppm at: 1540 2nd check: less than 0.1 ppm at: 1715 3rd check: Not Applicable (if greater than 0.1 ppm, then check every 30 minutes from secondary) Access Flows and Pressures Patient Vitals for the past 8 hrs: Blood Flow Rate (mL/min) Arterial Pressure (mmHg) Venous Pressure (mmHg) TMP DFR Access Visible Intra-Hemodialysis Comments 12/15/24 1545 150 mL/min -60 mmHg 60 mmHg 20 600 Yes vs stable/ call light within reach 12/15/24 1600 350 mL/min -160 mmHg 160 mmHg 20 600 -- pt resting/ call light within reach 12/15/24 1615 350 mL/min -160 mmHg 160 mmHg 20 600 Yes call light within reach 12/15/24 1630 350 mL/min -160 mmHg 160 mmHg 20 600 Yes call light within reach 12/15/24 1645 350 mL/min -160 mmHg 140 mmHg 20 600 Yes vs stable 12/15/24 1700 350 mL/min -160 mmHg 160 mmHg 20 600 Yes call light within reach 12/15/24 1715 350 mL/min -160 mmHg 160 mmHg 20 600 Yes vs stable 12/15/24 1730 350 mL/min -160 mmHg 160 mmHg 20 600 Yes call light within reach 12/15/24 1745 350 mL/min -160 mmHg 160 mmHg 20 600 Yes -- 12/15/24 1800 350 mL/min -160 mmHg 160 mmHg 20 600 Yes vs stable 12/15/24 1815 350 mL/min -160 mmHg 160 mmHg 20 600 Yes vs stable 12/15/24 1830 350 mL/min -160 mmHg 160 mmHg 20 600 Yes call light within reach 12/15/24 1845 350 mL/min -160 mmHg 160 mmHg 20 600 Yes vs stable Vital Signs Patient Vitals for the past 24 hrs: BP Temp Temp src Pulse Resp SpO2 12/15/24 1944 (!) 195/106 36.9 C (98.5 F) Temporal 96 20 100 % 12/15/24 1900 (!) 198/94 36.8 C (98.2 F) -- 96 20 96 % 12/15/24 1845 (!) 189/92 -- -- 98 20 -- 12/15/24 1830 (!) 190/95 -- -- 96 18 -- 12/15/24 1815 (!) 180/92 -- -- 98 20 -- 12/15/24 1800 (!) 176/78 -- -- 96 20 -- 12/15/24 1745 (!) 175/76 -- -- 98 22 -- 12/15/24 1730 (!) 168/75 -- -- 96 20 -- 12/15/24 1715 (!) 176/79 -- -- 96 22 -- 12/15/24 1700 (!) 185/78 -- -- 95 22 -- 12/15/24 1645 (!) 211/110 -- -- 96 22 -- 12/15/24 1630 (!) 178/82 -- -- 90 20 -- 12/15/24 1615 (!) 167/75 -- -- 92 20 -- 12/15/24 1600 (!) 175/76 -- -- 90 20 -- 12/15/24 1545 (!) 189/80 -- -- 92 20 -- 12/15/24 1540 (!) 168/78 37.3 C (99.1 F) -- 90 20 98 % 12/15/24 0926 149/84 -- -- 86 -- -- 12/15/24 0905 (!) 170/77 -- -- 82 -- -- 12/15/24 0807 (!) 198/105 37.1 C (98.8 F) Temporal 102 18 97 % Post-Dialysis Arterial Catheter Locking Solution: Heparin (1000units:1ml) Volume (ml): 2.0ml Venous Catheter Locking Solution: Heparin (1000units:1ml) Volume (ml): 2.1ml Post-Treatment Procedures: Blood returned, Catheter capped, clamped and heparinized x 2 ports Machine Disinfection Process: Acid/Vinegar Clean, Heat Disinfect, Exterior Machine Disinfection Rinseback Volume (mL): 200 mL Total Liters Processed (L/min): 63.1 L/min Dialyzer Clearance: Lightly streaked Heparin Amount Administered During Treatment (mL): 0 units Hemodialysis Intake (ml): 500 ml Hemodialysis Output (ml): 500 ml NET Removed (ml): 0 ml Tolerated Treatment: Good Interventions Taken: (none) Patient Response to Treatment: Tolerated treatment Physician Notified: No Patient Disposition: (remains in room W6-633) Charge: $ IP Hemodialysis Charge: Hemodialysis Provider Notification Provider Notification Reason for Communication: Abnormal Vitals, Refusal of Medications Provider Name: Dr Leonardo Provider Role: Attending physician Method of Communication: Secure chat Response: No new orders (okay for PRN B/P meds; no new orders for refusal of PO meds) Notification Date: 12/15/24 Notification Time: 821 Provider Role: Attending physician Method of Communication: Secure chat Response: No new orders (okay for PRN B/P meds; no new orders for refusal of PO meds) Notification Time: 821 Handoff complete and report given to Primary RN at 1900 Primary RN (First Initial, Last Name, Title): Lorna Medina RN Education Person Educated: Patient Knowledge Base: Minimal Barriers to Learning?: Yes, including orientation Preferred method of Learning: Oral Topic(s): Access Care, Signs and Symptoms of Infection, Fluid Management, and Procedural Teaching Tools: Explanation Response to Education: Verbalized Understanding [1] No Known Allergies [2] Patient Active Problem List Diagnosis Hypertensive emergency Gastrointestinal hemorrhage, unspecified gastrointestinal hemorrhage type Anemia Pulmonary edema, acute (HCC) Shortness of breath COVID-19 Edema of left lower extremity Sepsis, due to unspecified organism, unspecified whether acute organ dysfunction present (HCC) Seizures (HCC) ESRD (end stage renal disease) (HCC) Dialysis patient (HCC) Wound dehiscence End stage congestive heart failure (HCC) Fall, initial encounter Fall (on)(from) sidewalk curb, initial encounter Moderate malnutrition (CMS/HCC) (HCC) [3] Patient Name: Apoorva Gonzalez Patient : 1950 Acct: [id number] Date of Admission: 12/08/2024 Room/Bed: [facility] A Code Status: DNR-CCA Allergies: Allergies[1] Diagnosis: Problem List[2] Treatment: Hemodialysis 1:1 Priority: Routine Location: Bedside Diabetic: No NPO: No Isolation Precautions: Contact Consent for Treatment Verified: Yes Blood Consent Verified: Not Applicable ICEBOAT: Identify, Consent, Equipment, HepB Status, Orders Complete, Access Verified, Timeliness Second Clinician Verifying: Roz Medina RN Time out performed prior to access at 0930. Report Received from Primary RN at 0850. Primary RN (First Initial, Last Name, Title): Roz Medina RN Incapacitated Nurse Education Completed: Yes HBsAg ONLY: Date Drawn: January 22, 2024 Results: Negative HBsAb: Date Drawn: January 22, 2024 Results: Immune >10 Order Dialyzer: Nipro Na+ Modeling: Not Applicable Dialysate Temperature (C): 36 Blood Flow Rate (BFR): 400 Dialysate Flow Rate (DFR): 800 Access to be Utilized Access: Tunneled Catheter Location: Internal Jugular Side: Left Needle gauge: Not Applicable + Bruit/Thrill: Not Applicable First Use X-ray Verified: Not Applicable OK to use line order: Yes Site Assessment: Signs and Symptoms of Infection/Inflammation: None If yes: Not Applicable Dressing: Dry and Intact Site Prep: Medical Aseptic Technique Dressing Changed this Treatment: Yes If yes, by whom: Juli MARIE Date of Last Dressing Change: December 12, [address]?: No Red Alcohol Caps in place?: Yes Gauze Dressing?: No Non-Dialysis Use?: No Comment: Flows: Good If access problem, who was notified: Pre and Post-Assessment Patient Vitals for the past 8 hrs: Level of Consciousness Oriented X Heart Rhythm O2 Device Bilateral Breath Sounds Skin Condition/Temp Appetite Abdomen Inspection Bowel Sounds (All Quadrants) Edema Generalized Edema RUE Edema LUE Edema RLE Edema LLE Edema Pre-Hemodialysis Comments Pain Interventions 12/14/24 0800 -- -- -- -- Diminished -- -- -- -- Generalized Non-pitting -- -- -- -- -- -- 12/14/24 0828 -- -- -- -- -- -- -- -- -- -- -- -- -- -- -- -- Medication (See MAR) 12/14/24 0935 Responds to voice (1) unable to assess, pt just moans, does not appear to follow commands with purposful squeeze of hand Regular None (Room air) Diminished Warm;Dry Poor Rounded;Soft Active Generalized +1 Trace Trace +1 +1 pt moaning when awakens, otherwise respirations easy, in no apparent distress. Bilat wrist restraints in place. R elbow with some dried blood and blood on sheet. IV to R hand. -- 12/14/24 1250 Responds to voice (1) umable to assess, moaning only does not answser questions Regular None (Room air) Diminished Warm;Dry -- -- -- -- -- -- -- -- -- -- -- Labs Recent Labs 12/14/24 024 WBC 13.1* HGB 7.5* HCT 23.6* PLT 305 Lab Results Component Value Date/Time WBC 13.1 (H) 12/14/2024239 HGB 7.5 (L) 12/14/2024239 HGB 9.3 12/11/2024 2030 HCT 23.6 (L) 12/14/2024239 PLT 305 12/14/2024239 NA 130 (L) 12/14/2024239 K 3.7 12/14/2024239 CL 96 (L) 12/14/2024239 CO2 25 12/14/2024 0240 BUN 26 (H) 12/14/2024 0240 CREATININE 4.37 (H) 12/14/2024 0240 CALCIUM 7.5 (L) 12/14/2024 0240 PHOS 2.3 12/14/2024 0240 Lab Results Component Value Date WBC 13.1 (H) 12/14/2024 HGB 7.5 (L) 12/14/2024 HGB 9.3 12/11/2024 HCT 23.6 (L) 12/14/2024 PLT 305 12/14/2024 NA 130 (L) 12/14/2024 K 3.7 12/14/2024 CL 96 (L) 12/14/2024 CO2 25 12/14/2024 BUN 26 (H) 12/14/2024 CREATININE 4.37 (H) 12/14/2024 GLUCOSE 95 12/14/2024 CALCIUM 7.5 (L) 12/14/2024 PHOS 2.3 12/14/2024 IV Drips and Rate/Dose Continuous Meds[3] Safety - Before each treatment: Dialysis Machine No.: [id number] Machine Number: [id number] Dialyzer Lot No.: [id number] Machine Log Sheet Completed: Yes Machine Alarm Self Test: Completed, Passed (12/14/24934) Air Foam Detector: Tested, Proper Function Extracorporeal Circuit Tested for Integrity: Yes (test complete at 932) Machine Conductivity: 13.7 Manual Conductivity: 13.6 Bicarbonate Concentrate Lot No.: [id number] Acid Concentrate Lot No.: [id number] Manual Ph: 7.4 Bleach Test (Neg): Yes Bath Temperature: 36 C (96.8 F) Tubing Lot Number: [id number] Conductivity Meter Serial #: [id number] All Connections Secure: Yes Arterial Parameters Set: Yes Saline Line Double Clamped: Yes Air Foam Detector: Tested, Proper Function Prime Volume (mL): 200 mL Machine Functioning Alarm Free? Yes Chlorine Testing - Before each treatment and every 4 hours: Time On: 940 Time Off: 1242 Treatment Goal: 2L Weight Height: 164 cm (5' 4.57) (12/11/24 0646) Weight: 52.8 kg (116 lb 4.8 oz) (12/11/24 1014) BMI (Calculated): 19.61 (12/11/24 1014) 1st check: less than 0.1 ppm at: 0920 2nd check: less than 0.1 ppm at: 1200 3rd check: Not Applicable (if greater than 0.1 ppm, then check every 30 minutes from secondary) Access Flows and Pressures Patient Vitals for the past 8 hrs: Blood Flow Rate (mL/min) Ultrafiltration Rate (ml/hr) Arterial Pressure (mmHg) Venous Pressure (mmHg) TMP DFR Access Visible Intra-Hemodialysis Comments 12/14/24 0941 200 mL/min 800 ml/hr -30 mmHg 30 mmHg 80 800 Yes Tx start, both ports with good pull and easy flush. 12/14/24 0944 400 mL/min 800 ml/hr -170 mmHg 110 mmHg 90 800 Yes BFR increased, eyes closed 12/14/24 1000 400 mL/min 800 ml/hr -200 mmHg 100 mmHg 90 800 Yes eyes closed, respirations easy, UF removed 245 12/14/24 1015 350 mL/min 800 ml/hr -160 mmHg 70 mmHg 90 800 Yes BFR decreased due to rising Arterial pressure. Primary MD at bedside. UF removed 463 12/14/24 1030 350 mL/min 800 ml/hr -190 mmHg 70 mmHg 90 800 Yes No changes, respirations easy, eyes closed, in no apparent distress, UF removed 642 12/14/24 1045 350 mL/min 800 ml/hr -170 mmHg 80 mmHg 80 800 Yes VSS, no changes, eyes closed, UF removed 837 12/14/24 1100 350 mL/min 800 ml/hr -160 mmHg 80 mmHg 90 800 Yes no changes, UF removed 1000 12/14/24 1115 350 mL/min 800 ml/hr -160 mmHg 80 mmHg 90 800 Yes resting comfortably, UF removed 1240, Bicarb jug changed repeat cond/ph 13.6/7.4 12/14/24 1130 400 mL/min 800 ml/hr -200 mmHg 90 mmHg 80 800 Yes BFR increased, arterial pressusres stable and <360. eyes closed in no appaarent distsress, respirations easy. UF removed 1439 12/14/24 1145 400 mL/min 800 ml/hr -220 mmHg 90 mmHg 90 800 Yes no chanages, eyes closed, UF removed 1635 12/14/24 1200 400 mL/min 800 ml/hr -210 mmHg 0.1 mmHg 90 800 Yes in no apparent distress, eyes closed, respirations easy, UF removed 182912/14/24 1215 400 mL/min 800 ml/hr -220 mmHg 100 mmHg 80 800 Yes no changes, UF removed 203412/14/24 1230 400 mL/min 800 ml/hr -220 mmHg 100 mmHg 80 800 -- moaning, appears to be in no distress, UF removed 223912/14/24 1242 200 mL/min -- -- -- -- -- Yes tx completed blood returned, UF removed 2400, fluid intake 400 Vital Signs 1 No data found. 2 Patient Vitals for the past 24 hrs: BP Temp Temp src Pulse Resp SpO2 12/14/24 1250 (!) 183/90 36.8 C (98.2 F) -- 97 16 100 % 12/14/24 1242 (!) 170/87 -- -- 94 -- -- 12/14/24 1230 155/91 -- -- 86 -- -- 12/14/24 1215 140/78 -- -- 80 -- -- 12/14/24 1200 141/79 -- -- 83 -- -- 12/14/24 1145 146/89 -- -- 85 -- -- 12/14/24 1130 157/94 -- -- 94 -- -- 12/14/24 1115 (!) 200/77 -- -- 86 -- -- 12/14/24 1100 (!) 166/82 -- -- 80 -- -- 12/14/24 1045 (!) 178/77 -- -- 77 -- -- 12/14/24 1030 151/87 -- -- 88 -- -- 12/14/24 1015 143/70 -- -- 81 -- -- 12/14/24 1000 (!) 162/86 -- -- 90 -- -- 12/14/24 0941 146/74 -- -- 78 -- -- 12/14/24 0935 156/96 37 C (98.6 F) -- 88 16 99 % 12/14/24 0824 -- -- -- 95 -- 95 % 12/14/24 0802 (!) 180/86 -- -- 95 -- -- 12/14/24 0755 -- 36 C (96.8 F) Temporal -- 16 -- 12/13/24 192 (!) 161/96 36.6 C (97.8 F) Temporal 98 20 94 % 3 Patient Vitals for the past 24 hrs: BP Temp Temp src Pulse Resp SpO2 12/14/24 1250 (!) 183/90 36.8 C (98.2 F) -- 97 16 100 % 12/14/24 1242 (!) 170/87 -- -- 94 -- -- 12/14/24 1230 155/91 -- -- 86 -- -- 12/14/24 1215 140/78 -- -- 80 -- -- 12/14/24 1200 141/79 -- -- 83 -- -- 12/14/24 1145 146/89 -- -- 85 -- -- 12/14/24 1130 157/94 -- -- 94 -- -- 12/14/24 1115 (!) 200/77 -- -- 86 -- -- 12/14/24 1100 (!) 166/82 -- -- 80 -- -- 12/14/24 1045 (!) 178/77 -- -- 77 -- -- 12/14/24 1030 151/87 -- -- 88 -- -- 12/14/24 1015 143/70 -- -- 81 -- -- 12/14/24 1000 (!) 162/86 -- -- 90 -- -- 12/14/24 0941 146/74 -- -- 78 -- -- 12/14/24 0935 156/96 37 C (98.6 F) -- 88 16 99 % 12/14/24 0824 -- -- -- 95 -- 95 % 12/14/24 0802 (!) 180/86 -- -- 95 -- -- 12/14/24 0755 -- 36 C (96.8 F) Temporal -- 16 -- 12/13/241922 (!) 161/96 36.6 C (97.8 F) Temporal 98 20 94 % 4 Vitals: 12/14/24 1215 12/14/24 1230 12/14/24 1242 12/14/24 1250 BP: 140/78 155/91 (!) 170/87 (!) 183/90 Pulse: 80 86 94 97 Resp: 16 Temp: 36.8 C (98.2 F) TempSrc: SpO2: 100% Weight: Height: 5 Patient Vitals for the past 24 hrs: BP Temp Temp src Pulse Resp SpO2 12/14/24 1250 (!) 183/90 36.8 C (98.2 F) -- 97 16 100 % 12/14/24 1242 (!) 170/87 -- -- 94 -- -- 12/14/24 1230 155/91 -- -- 86 -- -- 12/14/24 1215 140/78 -- -- 80 -- -- 12/14/24 1200 141/79 -- -- 83 -- -- 12/14/24 1145 146/89 -- -- 85 -- -- 12/14/24 1130 157/94 -- -- 94 -- -- 12/14/24 1115 (!) 200/77 -- -- 86 -- -- 12/14/24 1100 (!) 166/82 -- -- 80 -- -- 12/14/24 1045 (!) 178/77 -- -- 77 -- -- 12/14/24 1030 151/87 -- -- 88 -- -- 12/14/24 1015 143/70 -- -- 81 -- -- 12/14/24 1000 (!) 162/86 -- -- 90 -- -- 12/14/24 0941 146/74 -- -- 78 -- -- 12/14/24 0935 156/96 37 C (98.6 F) -- 88 16 99 % 12/14/24 0824 -- -- -- 95 -- 95 % 12/14/24 0802 (!) 180/86 -- -- 95 -- -- 12/14/24 0755 -- 36 C (96.8 F) Temporal -- 16 -- 12/13/24 1923 (!) 161/96 36.6 C (97.8 F) Temporal 98 20 94 % 6 Post-Dialysis Arterial Catheter Locking Solution: Heparin (1000units:1ml) Volume (ml): 2.0 Venous Catheter Locking Solution: Heparin (1000units:1ml) Volume (ml): 2.1 Post-Treatment Procedures: Catheter capped, clamped and heparinized x 2 ports Machine Disinfection Process: Acid/Vinegar Clean, Heat Disinfect, Exterior Machine Disinfection Rinseback Volume (mL): 200 mL Total Liters Processed (L/min): 63.1 L/min Dialyzer Clearance: Clear Heparin Amount Administered During Treatment (mL): 0 units Hemodialysis Intake (ml): 400 ml Hemodialysis Output (ml): 2400 ml Tolerated Treatment: Good Patient Response to Treatment: tolerated well, no compllications Interventions Taken: (none) Physician Notified: No Patient Disposition: (remains in room W6-633) Provider Notification Provider Notification Reason for Communication: Fall Provider Name: Rudylindsey Garnett NP Provider Role: CRISTO Method of Communication: Secure chat Response: See orders Notification Date: 12/12/24 Notification Time: 2229 Provider Role: CRISTO Method of Communication: Secure chat Response: See orders Notification Time: 2229 Handoff complete and report given to Primary RN at 1300. Primary RN (First Initial, Last Name, Title): Roz Medina RN Education Person Educated: Patient Knowledge Base: unable to assess d/t mentation Barriers to Learning?: mentation Preferred method of Learning: unable to assess d/t mentation Topic(s): Access Care and Procedural Teaching Tools: Explanation Response to Education: Requires Follow-up [1] No Known Allergies [2] Patient Active Problem List Diagnosis Hypertensive emergency Gastrointestinal hemorrhage, unspecified gastrointestinal hemorrhage type Anemia Pulmonary edema, acute (HCC) Shortness of breath COVID-19 Edema of left lower extremity Sepsis, due to unspecified organism, unspecified whether acute organ dysfunction present (HCC) Seizures (HCC) ESRD (end stage renal disease) (HCC) Dialysis patient (HCC) Wound dehiscence End stage congestive heart failure (HCC) Fall, initial encounter Fall (on)(from) sidewalk curb, initial encounter [3] Brother Deshawn notified of using soft wrist restrained. Unable to run pt tonight due to access issues, Dr Castaneda notified, order of cathflow ordered and placed in the access. Access to be reassessed in the morning. This RN will relay message to AM charge nurse. Ramonita Garnett NP notified of need for anxiety medication and soft wrist restraints due to patient being fidgety and pulling dialysis lines during session. Haldol was given and this did help settle patient slightly but still needed the restraints to avoid self harm. Dialysis session ended due to poor access of vas cath and will try again in the morning. Sitter remains at bedside. Called into room by Keke de la fuente, after she found patient lying on floor next to bed. Bed rail was up but patient scooted herself to the end of the bed to get out. Bed alarm failed to function. Aide states she remembers trying to set it previous to fall. Patient has been very restless and anxious this shift and only moans; she does not answer any questions. She makes limited eye contact and does not follow commands or cooperate. She is very restless and fidgety. Called RR to further assess as we continued to get VS and blood sugar. No apparent injuries observed. Patient's significant other had to be stopped from pouring water into patient's mouth. He said that he knows she has to be thirsty. RN educated on why you cannot do this as it can cause aspiration. Patient Name: Apoorva Navarro [place] Patient : 1950 Acct: [id number] Date of Admission: 12/08/2024 Room[facility]Bed: [facility] A Code Status: DNR-CCA Allergies: Allergies[1] Diagnosis: Problem List[2] Treatment: Hemodialysis 1:1 Priority: Routine Location: Bedside Diabetic: Yes NPO: No Isolation Precautions: Contact Consent for Treatment Verified: Yes Blood Consent Verified: na ICEBOAT: Identify, Consent, Equipment, HepB Status, Orders Complete, Access Verified, Timeliness Second Clinician Verifying: Tung [place] RN Time out performed prior to access at 1445. Report Received from Primary RN at 1404. Primary RN (First Initial, Last Name, Title): Tung Beach RN Incapacitated Nurse Education Completed: Yes HBsAg ONLY: Date Drawn: January 22, 2024 Results: Negative HBsAb: Date Drawn: January 22, 2024 Results: Immune >10 Order Dialyzer: Nipro Na+ Modeling: Not Applicable Dialysate Temperature (C): 36 Blood Flow Rate (BFR): 400 Dialysate Flow Rate (DFR): 800 Access to be Utilized Access: Tunneled Catheter Location: Subclavian Side: Left Needle gauge: Not Applicable + Bruit/Thrill: Not Applicable First Use X-ray Verified: Not Applicable OK to use line order: Not Applicable Site Assessment: Signs and Symptoms of Infection/Inflammation: None If yes: Not Applicable Dressing: Dry and Intact Site Prep: Medical Aseptic Technique Dressing Changed this Treatment: No If yes, by whom: Bedside RN Date of Last Dressing Change: December 12, [address]?: No Red Alcohol Caps in place?: No Gauze Dressing?: No Non-Dialysis Use?: No Comment: Flows: Good If access problem, who was notified: Pre and Post-Assessment Patient Vitals for the past 8 hrs: Level of Consciousness Oriented X Heart Rhythm Respiratory Pattern O2 Device Bilateral Breath Sounds Skin Color Skin Condition/Temp Abdomen Inspection Bowel Sounds (All Quadrants) Edema RLE Edema LLE Edema 12/12/24 1419 Responds to voice (1) x0 Regular Other (Comment) Nasal cannula Clear Other (Comment) Warm;Dry -- -- Right lower extremity;Left lower extremity +2 +2 12/12/24 1809 Responds to voice (1) x0 Regular Other (Comment) Nasal cannula -- Other (Comment) Warm;Dry Soft Active Right lower extremity;Left lower extremity +2 +2 Labs Lab Results Component Value Date/Time WBC 11.5 (H) 12/12/2024102 HGB 8.0 (L) 12/12/2024102 HGB 9.3 12/11/2024 2030 HCT 24.8 (L) 12/12/2024102 PLT 332 12/12/2024102 NA 137 12/12/2024102 K 4.1 12/12/2024102 CL 100 12/12/2024102 CO2 26 12/12/2024102 BUN 38 (H) 12/12/2024102 CREATININE 5.60 (H) 12/12/2024102 CALCIUM 7.8 (L) 12/12/2024102 PHOS 1.7 (L) 12/09/2024 1023 IV Drips and Rate/Dose Continuous Meds[3] Safety - Before each treatment: Dialysis Machine No.: [id number] RO Machine Number: [id number] Dialyzer Lot No.: [id number] Tubing Lot Number: [id number] All Connections Secure: Yes Venous Parameters Set: Yes Arterial Parameters Set: Yes NS Bag: Yes Saline Line Double Clamped: Yes Dialyzer: Nipro Prime Volume (mL): 200 mL RO Machine Number: [id number] RO Machine Log Sheet Completed: Yes Machine Alarm Self Test: Completed, Passed (12/12/24 1445) Air Foam Detector: Tested, Proper Function, pH Reading Extracorporeal Circuit Tested for Integrity: Yes Machine Conductivity: 13.5 Manual Conductivity: 13.6 Manual Ph: 7.2 Bleach Test (Neg): Yes Bath Temperature: 36 C (96.8 F) Conductivity Meter Serial #: [id number] Machine Functioning Alarm Free? Yes Dialysis Bath: K+ (Potassium): 3 Ca+ (Calcium): 2.5 Na+ (Sodium): 135 HCO3 (Bicarb): 35 Bicarbonate Concentrate Lot No.: [id number] Acid Concentrate Lot No.: [id number] Chlorine Testing - Before each treatment and every 4 hours: Time On: 1445 Time Off: 1800 Treatment Goal: 2L Weight Height: 164 cm (5' 4.57) (12/11/24 0646) Weight: 52.8 kg (116 lb 4.8 oz) (12/11/24 1014) BMI (Calculated): 19.61 (12/11/24 1014) 1st check: less than 0.1 ppm at: 1414 2nd check: less than 0.1 ppm at: 1656 3rd check: Not Applicable (if greater than 0.1 ppm, then check every 30 minutes from secondary) Access Flows and Pressures Patient Vitals for the past 8 hrs: Blood Flow Rate (mL/min) Ultrafiltration Rate (ml/hr) Arterial Pressure (mmHg) Venous Pressure (mmHg) TMP DFR Access Visible Intra-Hemodialysis Comments 12/12/24 1445 400 mL/min 800 ml/hr -130 mmHg 60 mmHg 90 800 Yes tx started per policy without difficulty, no change in condition noted, LVSD 12/12/24 1500 400 mL/min 800 ml/hr -220 mmHg 80 mmHg 80 800 Yes no sign of acute distress, decreased BFR due to intermitten pressure alarm, LVSD 12/12/24 1515 375 mL/min 800 ml/hr -200 mmHg 90 mmHg 80 800 Yes decreased UF for BP, LVSD 12/12/24 1530 375 mL/min 710 ml/hr -200 mmHg 150 mmHg 70 800 Yes decreased UF goal for BP and HR, LVSD 12/12/24 1545 375 mL/min 360 ml/hr -190 mmHg 240 mmHg 70 800 Yes no sign of acute distress, LVSD 12/12/24 1600 375 mL/min 360 ml/hr -230 mmHg 310 mmHg 70 800 Yes decreased BFR for alarming art pressure, LVSD 12/12/24 1615 325 mL/min 360 ml/hr -100 mmHg 390 mmHg 60 800 Yes no sign of acute distress 12/12/24 1621 -- -- -- -- -- -- -- tx paused and blood rinsed back per policy due to venous pressure of 400, will restart ROSALEE 12/12/24 1634 400 mL/min 650 ml/hr -120 mmHg 140 mmHg 70 800 Yes tx restarted per policy, did not give prime, no sign of acute distress, LVSD 12/12/24 1645 400 mL/min 650 ml/hr -140 mmHg 130 mmHg 70 800 Yes no sign of acute distress, LVSD 12/12/24 1700 400 mL/min 650 ml/hr -130 mmHg 160 mmHg 70 800 Yes decreased UF goal for BP 12/12/24 1715 400 mL/min 340 ml/hr -120 mmHg 140 mmHg 70 800 Yes no sign of acute distress 12/12/24 1730 400 mL/min 340 ml/hr -130 mmHg 140 mmHg 70 800 Yes no sign of acute distress, LVSD 12/12/24 1745 400 mL/min 340 ml/hr -130 mmHg 130 mmHg 70 800 Yes no sign of acute distress, visitor name Edward states he is her boy friend 12/12/24 1800 400 mL/min -- -130 mmHg 130 mmHg 70 800 Yes tx completed, blood rinsed back per policy without difficulty, no change in condition noted Vital Signs Patient Vitals for the past 24 hrs: BP Temp Temp src Pulse Resp SpO2 12/12/24 1809 133/70 36.2 C (97.2 F) -- 99 18 96 % 12/12/24 1800 116/78 -- -- 96 -- -- 12/12/24 1745 122/82 -- -- 89 -- -- 12/12/24 1730 120/73 -- -- 98 -- -- 12/12/24 1715 106/70 -- -- 88 -- -- 12/12/24 1700 92/65 -- -- 98 -- -- 12/12/24 1645 159/89 -- -- 97 -- -- 12/12/24 1634 126/77 -- -- 87 -- -- 12/12/24 1615 120/76 -- -- 90 -- -- 12/12/24 1600 121/87 -- -- 89 -- -- 12/12/24 1545 112/74 -- -- 90 -- -- 12/12/24 1530 108/79 -- -- 114 -- -- 12/12/24 1524 112/71 -- -- 98 -- -- 12/12/24 1515 111/68 -- -- 90 -- -- 12/12/24 1500 131/81 -- -- 87 -- -- 12/12/24 1445 144/81 -- -- 88 -- -- 12/12/24 1419 148/86 36.3 C (97.4 F) -- 90 17 96 % 12/12/24 0757 149/85 36 C (96.8 F) Temporal 94 18 100 % 12/11/24 2236 140/79 36.2 C (97.2 F) Temporal 93 18 92 % 12/11/24 1920 (!) 183/94 36.4 C (97.5 F) Temporal 96 20 93 % Post-Dialysis Arterial Catheter Locking Solution: Heparin (1000units:1ml) Volume (ml): 2 Venous Catheter Locking Solution: Heparin (1000units:1ml) Volume (ml): 2.1 Post-Treatment Procedures: Blood returned, Catheter capped, clamped and heparinized x 2 ports Machine Disinfection Process: Exterior Machine Disinfection Rinseback Volume (mL): 200 mL Total Liters Processed (L/min): 63.1 L/min Dialyzer Clearance: Clear Heparin Amount Administered During Treatment (mL): 0 units Hemodialysis Intake (ml): 600 ml Hemodialysis Output (ml): 1400 ml NET Removed (ml): 800 ml Tolerated Treatment: Fair Interventions Taken: Ultrafiltration goal decreased Patient Response to Treatment: tolerated well with decreased UF goal Physician Notified: No Patient Disposition: (bedside tx) Charge: $ IP Hemodialysis Charge: Hemodialysis Provider Notification Handoff complete and report given to Primary RN at 1820. Primary RN (First Initial, Last Name, Title): [place] RN Education Person Educated: Patient Knowledge Base: na Barriers to Learning?: Yes, including disorientation Preferred method of Learning: Hands-on Topic(s): Procedural Teaching Tools: Explanation Response to Education: Requires Follow-up [1] No Known Allergies [2] Patient Active Problem List Diagnosis Hypertensive emergency Gastrointestinal hemorrhage, unspecified gastrointestinal hemorrhage type Anemia Pulmonary edema, acute (HCC) Shortness of breath COVID-19 Edema of left lower extremity Sepsis, due to unspecified organism, unspecified whether acute organ dysfunction present (HCC) Seizures (HCC) ESRD (end stage renal disease) (HCC) Dialysis patient (HCC) Wound dehiscence End stage congestive heart failure (HCC) Fall, initial encounter Fall (on)(from) sidewalk curb, initial encounter [3] Wound Care consulted for Pressure Injury Prevention. Pt's Arnol score= 15 on 12/12/24 Pt's pressure points assessed. Pt turned with 2 assist for posterior assessment. Pt's Heels, Back, Elbows, Occiput and ears all intact. Wound noted to left buttocks, present on admission, see media tab. Consult placed to wound MILLINERY DEPARTMENT MANAGER group. Pt turned to left side at end of visit. Prevention Measures in place, including: [place] sheet with pillows/wedges, Foam heel protectors (applied), Heels elevated off bed on pillows, Zinc/Moisture Barrier ointment (applied, ET Mix also at bedside), Waffle chair cushion (obtain when out of bed). Skin Care precaution order set in place. Dietitian consult in place. PT/OT consult in place. D/W nursing staff. Will continue to follow pt. Please Vocera for any questions or concerns. Carla Quintero RN, BSN Patient to xray Spoke with MRI regarding pt being unable to answer MRI questions. Messaged skilled nursing professional for order for chest xray and KUB. This rn and tank charger attempted to get blood cultures, unable to get. Lactic was obtained and sent. Called and left for rapid to see if they can obtain blood cultures. Dr Kevin made aware that at this time blood cultures could not be drawn. Notified skilled nursing professional Rishi HART of ABG results. Order to place patient on 3L NC. Patient was 90-93% on RA. Pt unable to answer MRI questions at this time. Pt will answer yes or no questions and goes to sleep. Moans and groans with any patient care, when asked if she is having pain says yes. Repositioned and given prn pain meds. Significant other given updates, and he states she acts like this when she misses HD. Informed him of plan for HD tomorrow. Unable to give IV antibiotic at this time due to occluded IV site. Was unsuccessful to place new IV so I called RR team to come place one. 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 Pt states she would like to return to [facility] at discharge documented in this encounter [facility] 12-20-2024 Miscellaneous Notes Transportation confirmed for 630. Called and spoke to brother Deshawn with update on time of discharge. RN and unit reactor operator notified via secure chat. Discharge med list transmitted to [facility] via [employer] per TCC request. Confirmed pickup time of 6:30pm on 12/20/24 by transport Lumificald Ghazal at phone number [phone]. Location of facility drop off is [facility]. Facility notified via [employer], TCC notified on secure chat. Discharge order noted in epic. BODY CORPORATE MANAGER tasked to set up cot transport for return to [facility]. Palliative Care Interdisciplinary Team Note: Diagnosis: Principal Problem: Fall, initial encounter Active Problems: Fall (on)(from) sidewalk curb, initial encounter Moderate malnutrition (CMS/HCC) (HCC) Chief Complaint: Apoorva Gonzalez is a 74 y.o. female with chief complaint of: falls, ESRD Reason Palliative Following:Goals of Care and Symptom Management Plan:Ongoing Goals of Care Discussions and Symptom Management Code Status: DNR-CCA Medications: Palliative Care Not Managing Any Medications Nursing: Decrease Fall Risk and [facility] Care Social Work: No Unmet Needs Spiritual Care: No Unmet Needs Pharmacy: No Unmet Needs Psychology/Psychiatry: No Unmet Needs Care Management Progress Note Short Medical why still here: Chart reviewed. MRI under sedation today. +IV abx for discitis, ID following. Patient received 3U PRBC yesterday for Hgb 4.1 2/2 rectus sheath hematoma. Palliative care following. Current discharge plan is return to [facility] once stable. Planned Discharge Disposition: [facility] Facility Barriers/Today we still Wait: Clinical stability, Administering IV medications Length of Stay (Days): 6 GMLOS: No GMLOS Documented Care Management Progress Note Short Medical why still here: Chart reviewed. MRI re-scheduled for today. Patient remains on iv abx for possible discitis. Patient remains confused which is not baseline. +HD. Geriatrics following. Palliative care following patient with noted lengthy discussion for GOC with brother, GENET, yesterday. Plan to follow up on Wednesday. Current discharge plan is return to [facility] once stable. Planned Discharge Disposition: [facility] Facility Barriers/Today we still Wait: Clinical stability, Administering IV medications Length of Stay (Days): 3 GMLOS: No GMLOS Documented 30 Day Readmission. Hospital Readmission Questionnaire not required due to patient readmitted from skilled or rehabilitation facility. CRISTO following for care progression. This patient was seen as a hospital courtesy for improved patient care and care progression. Per request of primary, ID and ortho, discussion via chat with anesthesia, Drs. Sánchez & Dwayne, will expidite MRI w/anesthesia which will be completed tomorrow 12/15, likely in afternoon. NPO 8 hrs prior. Team notified. Greatly apppreciate collaboration with anesthesia team. Thank you for allowing me to participate in the medical care of your patient. Work Categories (check all that apply) [] Discharge Planning [x] Care Coordination & Progression [] Nursing Function [] Orders Placed [] Symptom Assessment [] Patient Experience [] Patient / Caregiver Conversation Contacted brother-Deshawn. He states received recent information from [facility] that patient may be over assets. He stated he shared this information with the social media specialist at [facility]. BOX ESTIMATOR did confirm that is the best person to be talking to about this. Discharge plan is to return to facility. Called to patient bedside for unwitnessed fall. Upon assessment, pt AxO to 0. Pt rolling around on floor moaning, mostly lying on L side. Per primary RN pt was found on L side. Pt unable to describe fall or if she has any pain. VSS, BGT 63. Blood glucose corrected per order. No trauma/wounds found on patient. Pt is on no blood thinners. Pt legs, hips, arms, shoulders, back, neck palpated without complaints of pain/increase in moaning. No shortening/or rotation of hips noted. Per primary RN, this is her current baseline mentation. Pt lifted back into bed using appropriate back board. Ramonita MILLINERY DEPARTMENT MANAGER notified and fall orders placed. Sitter at bedside, bed alarm placed. No further interventions at this time. Primary RN to call with further concerns. Return Referral placed to [facility] via [employer] per TCC request. Await review and response regarding ability to accept. TCC notified. Care Managment Initial Assessment Date: 12/12/2024 Patient Name: Apoorva Gonzalez : 1950 Patient Information Source of Information: Patient Diesel Crane Operator Name/Contact Information: brother DeshawnGENET, / patient lethargic Cognition/Language: Impaired 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 as indicated: Yes Confirmation of Payer with patient/family: Yes Payer Name: [employer] Medicare/ per brother, in process of applying for medicaid : No Confirmation of Primary Care Physician: Confirmed PCP Name: PCP at facility Seen in last 2 years?: Yes Primary Caregiver: Other (Comment) (facility staff) If assistance needed, confirmed caregiver ready, willing and able to care for patient at discharge: No Confirmed with: Deshawn arredondo Living Arrangements [facility] Facility Name: [facility] Plan to Return: Yes Lives with: Alone Support Systems: Family members, Spouse/significant other, Comments (Other) (facility staff) Activities of Daily Living Ambulation: Assistance (with transfers) Bathing/Dressing: Total Care Elimination/Continence/Toileting: Total Care Feeding: Assistance Who Assists with Activities of Daily Living: facility staff Instrumental Activities of Daily Living Prescription Coverage: Yes Pharmacy Used: facility manages Medication Management: Transportation/Shopping: Assistance Provider Transportation/Shopping Assistance Provider Name: Transportation Mode: Car Needs Assistance with Transportation at Discharge: Yes Meal Preparation: Assistance Provider Meal Prep Assistance Provider Name: facility manages Laundry/Cleaning: Assistance Provider Laundry/Cleaning Assistance Provider Name: facility manages Finances/Bill Paying: Assistance Provider Finances/Bill Payer Assistance Provider Name: Deshawn arredondo Communication: Independent Types of Care Services/Equipment Utilized Dialysis Type: Hemo Dialysis Provider Name/Location: at facility Transportation to Dialysis: at facility Durable Medical Equipment: Hospital Bed, Wheelchair (standard or power), Walker Patient's Goal/Discharge Plan Patient expects to be discharged to: return to ECF Discharge Planning Actions: Continue to follow, [facility] Facility referral indicated [place] of choice: [place] of choice discussed (choice list not indicated; patient to return to ECF) Patient's Choice Rights and [employer] and Collaborative Relationships Disclosed as Indicated for Post-Acute Care: Yes Interdisciplinary Team Engagement: Social Work Referral for: Additional Information: Introduced self and role to patient Deshawn arredondoGENET 2/2 patient lethargic. Patient admitted with fall, electrolyte imbalances (HD patient). +IV abx for possible discitis. MRI pending. Nephro, Geriatrics consulted. Brother confirmed patient is from [facility]. She is assist with transfer to wheelchair at baseline. He would like her to return to there once stable. TCC to continue to follow. Casi Schaffer RN I have discussed with the patient the rationale for blood component transfusion; its benefits in treating or preventing fatigue, organ damage, or ; and its risk which includes mild transfusion reactions, rare risk of blood borne infection, or more serious but rare reactions. I have discussed the alternatives to transfusion, including the risk and consequences of not receiving transfusion. The patient had an opportunity to ask questions and had agreed to proceed with transfusion of blood components. documented in this encounter [facility] 12-20-2024 Note [facility] 12-20-2024 Hospital course Narrative Hospitalist Discharge Summary Apoorva Gonzalez : 1950 Admit date: 12/08/2024 Discharge date: 12/20/2024 Admitting Physician: Leticia Leonardo DO Primary Care Physician: Roxie Spain Code Status: DNR-CCA Hospital Course: Apoorva is a 73 y.o. female with past medical history hx seizure ( 2021 a/w HTN encephalopathy) ,ESRD on HD ,AV graft placement (Dr. 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 difficile. She had a complicated year with admissions and infections. Presented to ED this time after a mechanical fall while at dinner and L hip pain after the fall Normally she uses a wheelchair but she stood up to try to help her family member and fell backwards hitting her head on the pavement. She did not consciousness She was found septic, ID consulted felt related recent graft infection, completed IV abx. Mentation improved to baseline. S/p 3 units blood transfusion, no overt GI bleed. Likely related rectus sheath hematoma. No acute surgical intervention per surgery. BP improved, but fluctuating. Add amlodipine and hydralazine for BP control. [place] titrate up as outpatient. Seen by geriatrics and nephrology as php consultant in hospital admission. The patient is discharged in improved and stable condition. See discharge diagnoses list and medication adjustments below in med rec. DISCHARGE DIAGNOSIS: Fall, initial encounter Sepsis likely related to seed from prior upper extremity graft infection Acute metabolic encephalopathy Acute on chronic anemia likely 2/2 rectus sheath hematoma ESRD HD Hypertensive urgency Seizure disorder Hypokalemia Hyponatremia Sacral pressure injury stage 2 POA Medical History[1] Discharge Instructions: Diet: Dietary Orders (From admission, onward) Start Ordered 12/18/24 1445 Adult diet Regular Diet effective now Question: Diet type Answer: Regular 12/18/24 1444 12/14/24 1349 Supplement:Dinner, Lunch; Vanilla Magic Cup Until discontinued Question Answer Comment Frequency Dinner Frequency Lunch Select supplement: Vanilla Magic Cup 12/14/24 1348 Activity: as tolerated Disposition: Patient discharged in stable condition to SNF. Greater than 31 minutes spent discharging the patient and coming up with patient discharge plan. Vitals: BP (!) 161/87 Pulse 92 Temp 36.9 C (98.4 F) Resp 16 Ht 5' 4.57 (1.64 m) Wt 116 lb 4.8 oz (52.8 kg) SpO2 100% BMI 19.61 kg/m Body mass index is 19.61 kg/m . Pulse Ox: SpO2 Av.3 % Min: 98 % Max: 100 % Supplemental O2: O2 Flow Rate (L/min): 3.5 L/min General appearance: No apparent distress HEENT: Eyes: No scleral icterus Oral: Tongue is semi-moist Cardiovascular: S1/S2 heard, RRR Respiratory: Clear to auscultation bilaterally Abdomen: Soft, non-tender, non-distended bowel sounds positive Musculoskeletal: sacral pressure injury Discharge Medications: Medication List START taking these medications hydrALAZINE 10 MG tablet Commonly known as: Apresoline Take 1 tablet (10 mg) by mouth 3 times daily. Lidocaine 4 % patch Place 1 patch on the skin daily. Start taking on: December 21, 2024 oxyCODONE 5 MG immediate release tablet Commonly known as: Roxicodone Take 1 tablet (5 mg) by mouth every 4 hours as needed for severe pain (7-10) for up to 5 days. QUEtiapine 25 MG tablet Commonly known as: SEROquel Take 0.5 tablets (12.5 mg) by mouth 2 times daily as needed (first line for agitation, [place] PRN Seroquel for ONLY if danger to self/others/treatment). CHANGE how you take these medications acetaminophen 500 MG tablet Commonly known as: Tylenol Take 2 tablets (1,000 mg) by mouth every 8 hours for 10 days. What changed: medication strength how much to take when to take this reasons to take this amLODIPine 10 MG tablet Commonly known as: Norvasc Take 1 tablet (10 mg) by mouth daily. Start taking on: December 21, 2024 What changed: medication strength how much to take CONTINUE taking these medications atorvastatin 40 MG tablet Commonly known as: Lipitor Take 1 tablet (40 mg) by mouth Nightly. B complex-vitamin C-folic acid 0.8 MG tablet cholecalciferol 125 MCG (5000 UT) capsule Commonly known as: Vitamin D-3 levETIRAcetam 500 MG tablet Commonly known as: Keppra Take 1 tablet (500 mg) by mouth daily. melatonin 5 MG tablet Take 1 tablet (5 mg) by mouth Nightly. sevelamer 800 MG tablet Commonly known as: Renagel vitamin B-1 250 MG tablet STOP taking these medications magnesium hydroxide 2400 MG/10ML suspension suspension Commonly known as: Milk of Magnesia sulfamethoxazole-trimethoprim 800-160 MG tablet Commonly known as: Bactrim DS Where to Get Your Medications You can get these medications from any pharmacy Bring a paper prescription for each of these medications oxyCODONE 5 MG immediate release tablet Information about where to get these medications is not yet available Ask your nurse or doctor about these medications acetaminophen 500 MG tablet amLODIPine 10 MG tablet hydrALAZINE 10 MG tablet Lidocaine 4 % patch QUEtiapine 25 MG tablet Recommended Follow-up: [facility] [address] [facility] [id number] Victor Manuel Benito MD [address] [place] [id number] Schedule an appointment as soon as possible for a visit As needed, neck pain Roxie Judit [address] [facility] [place] [address] Schedule an appointment as soon as possible for a visit post hospital follow up Complexity of Follow up: [] Moderate Complexity: follow up within 7-14 calendar days (78220) [x] Severe Complexity: follow up within 7 calendar days (63174) Follow up Testing, Pending results or Referrals at Transitional Care Visit: [x] yes [] no Instructions to MA: Please call patient on day after discharge (must document patient contacted within 2 business days of discharge). Follow up questions for MA: 1. Did you get medications filled and taking them as instructed from discharge? 2. Are you following your discharge instructions from your hospital stay? 3. Please confirm patient is scheduled for a follow up appointment within the above time frame. Signed: Mo Vieira MD [facility] 12/20/2024 [1] Past Medical History: Diagnosis Date Chronic kidney disease (CKD) Hemodialysis patient (CMS/HCC) (HCC) Wednesday, , Wednesday History of blood transfusion 02/27/2022 Hypertension Seizure (HCC) Developed seizure-like activity on 02/24 during hospital admission documented in this encounter [facility] 12-20-2024 History of Present illness Narrative Nephrology Progress Note Following for esrd Pt seen in room NAD Confused Current Inpatient Medications: Reviewed on JUN. Vitals: BP 155/75 Pulse 93 Temp 36.9 C (98.4 F) Resp 16 Ht 1.64 m (5' 4.57) Wt 52.8 kg (116 lb 4.8 oz) SpO2 100% BMI 19.61 kg/m BLOOD PRESSURE RANGE: Systolic (24hrs), Av , Min:144 , Max:179 ; Diastolic (24hrs), Av, Min:75, Max:87 24HR INTAKE/OUTPUT: Intake/Output Summary (Last 24 hours) at 12/20/2024 1443 Last data filed at 12/20/2024 0800 Gross per 24 hour Intake 120 ml Output 1 ml Net 119 ml Physical exam: Constitutional: nad Skin: no rash, turgor wnl Heent: eomi, mmm Neck: no bruits or jvd noted Cardiovascular: Normal S1, S2 without m/r/g Respiratory: CTAB without w/r/r Abdomen: +bs, soft, nt, nd Ext: trace lower extremity edema Data: Labs: Recent Labs 12/18/24 0420 12/18/24 0907 12/19/24 0027 12/19/24 1009 12/20/24 0017 WBC 19.3* -- 15.7* -- 12.1* HGB 9.0* < > 8.2* 8.1* 7.1* HCT 25.3* < > 23.6* 24.0* 20.9* MCV 86.6 -- 89.1 -- 92.5 PLT 327 -- 274 -- 237 < > = values in this interval not displayed. Recent Labs 12/18/24 0420 12/19/24 0027 12/20/24 0017 NA 128* 135* 134* K 4.4 3.9 4.3 CL 97* 102 106 CO2 25 25 21* GLUCOSE 89 73* 72* CALCIUM 7.3* 7.3* 6.5* BUN 18 11 15 CREATININE 3.46* 2.25* 2.84* Assessment and Plan: 74 yo female pmhx of ESRD on MWF HD presented after fall. Nephrology following for ESRD ESRD Continue MWF Access LCVC Volume Mild expansion on exam Bp stable Electrolytes Stabilization with HD MBD Phos 1.7 recheck 2.7 hold sevelemer Ca 8.0 Plan Volume status electrolytes cbc daily Continue to monitor BMP and electrolytes daily; replace K, Ca, Mg as needed. Transfuse PRBCs for Hgb < 7.0 g/dL; monitor for ongoing anemia. Continue renal diet and fluid restriction. Cont HD MWF Thank you for allowing me to care for pt. Feel free to reach out with any questions or concerns Pipe Soto MD [facility] Geriatric Medicine Inpatient Consult Service Admission Date: 12/08/2024 Assessment Principal Problem: Fall, initial encounter Active Problems: Fall (on)(from) sidewalk curb, initial encounter Moderate malnutrition (CMS/HCC) (HCC) Plan Acute Encephalopathy --Improved, oriented x 3 at time of visit --Etiology unclear. Likely multifactorial related to concern for infection, pain, hospitalization, medication effects, electrolyte abnormalities, reduced PO intake (now improved) --Continue to treat acute/underlying illness per primary service. ID adjusting antibiotics- cefepime and Merrem discontinued. Seen by ID with plan to monitor off antibiotics. --MRI brain completed 12/18 with no acute intracranial abnormalities. Showing generalized parenchymal loss, moderate chronic microvascular ischemic changes, and probable amyloid angiopathy. --Recommend to trial out of restraints as able. Restraints discontinued. Visual monitor remains at bedside. Trial removal as able --Encourage PO intake, time up in chair, family visits, supervised ambulation, and sleep hygiene --If agitated, assess for and consider treating for pain --QTc= 451 ms on 12/11/24 --[place] PRN Seroquel for ONLY if danger to self/others/treatment- Do not anticipate needing at discharge. --Would avoid benzodiazepines in this older adult patient as this drug class increases risk of falls and confusion along with other potentially negative side effects which would outweigh any theoretical benefit. --Continue melatonin PRN at HS for insomnia --Monitor for constipation/urinary retention - last BM today per patient report --Possible medication contributions: PRN narcotics ?cefepime-ID following and discontinued 12/13 Sertraline- discontinued as below Fall Declining functional status --Related to physical deconditioning, multiple hospitalizations, ESRD, seizure history --Unwitnessed fall on admission on 12/12/24 --Continue PT/OT as able while inpatient - Recommending SNF per PT/OT evaluation --Anticipate d/c to return to [facility] --Vitamin D 60 --Check orthostatic vital signs as able --Diesel Dinkey Operator- supplements ordered BID Acute pain due to trauma -Patient reports pain as improving at visit this morning -Management per primary service -Agree with scheduled tylenol (1000 mg q 8 hours) unless otherwise contraindicated. Recommend adjusting to 1000 mg PO TID to reduce nighttime awakening -If narcotics are required recommend using lowest effective dose of oral narcotic as needed for breakthrough pain. Consider weaning off IV pain medication as patient is now able to tolerate oral medications. -Continue lidocaine patch -Optimize nonpharmacologic pain treatment modalities. -Ensure that bowel regimen is in place while on narcotic regimen. Constipation -Chronic, recurrent problem -Management per primary service -Last documented BM 12/16- reported BM today per patient report -Agree with MiraLAX as needed, goal is soft BM no less than every 3 days. Anxiety -Management per primary service -Sertraline discontinued. Initially started on admission and could possible contribute to encephalopathy. -Can continue pregabalin 25 mg daily PRN anxiety as this can help with pain/mood. Would not increase dose any higher due to CrCl-Has not needed since 12/11. Would not continue at discharge. Polypharmacy Medications reviewed previously with geriatric pharmacist with recommendations as below: -Levetiracetam level 11.3 -As a new medication with LEGAL TRANSCRIBER activity, sertraline may be a contributor to encephalopathy. Now discontinued -Continue thiamine supplementation Plan discussed with RN. Follow-up: will follow with you Subjective Chief Complaint: fall Geriatrics consulted for fall HPI- The patient is known to me. 74 y.o. year-old female admitted to acute care from [facility] for fall on 12/08. Patient reportedly fell backwards and hit the back of her head on pavement, no loss of consciousness. Head CT in the emergency department did not show any acute intracranial findings, concerning for discitis. Diagnosed with anemia and concern for discitis. Started on empiric antibiotics and MRI c-spine pending. Hospital stay complicated by delirium. Unable to obtain MRI after multiple attempts. Interval History: Remains on 6W. No acute overnight events. Labs reviewed with sodium 134, BUN 15, creatinine 2.84, glucose 72, WBC 12.1, hemoglobin 7.1. Received PRN hydromorphone once this morning and PRN oxycodone 5 mg once. Received PRN dextrose once overnight. Patient cooperative with oral medications. Patient awake and alert up to the chair at time of visit. Patient oriented to person, place, and self. She reports pain in bed abdomen as improved this morning. Patient states she ate breakfast and slept well overnight. No reported concerns per RN at bedside. 12/19: Seen by PT. Recommending SNF. Mod assist with ambulation 3 ft + 12 fr with FWW 12/19: Seen by OT. Recommending SNF. Review of Systems Constitutional: Positive for activity change. Negative for appetite change and fatigue. HENT: Negative for sore throat and trouble swallowing. Respiratory: Negative for cough and shortness of breath. Gastrointestinal: Positive for abdominal pain. Negative for constipation. Musculoskeletal: Positive for arthralgias and myalgias. Neurological: Negative for dizziness, light-headedness and headaches. Psychiatric/Behavioral: Positive for confusion. Negative for sleep disturbance. The patient is not nervous/anxious. Objective BP (!) 169/75 Pulse 92 Temp 36.9 C (98.5 F) (Temporal) Resp 20 Ht 5' 4.57 (1.64 m) Wt 116 lb 4.8 oz (52.8 kg) SpO2 98% BMI 19.61 kg/m Intake/Output Summary (Last 24 hours) at 12/20/2024 1133 Last data filed at 12/20/2024 0800 Gross per 24 hour Intake 120 ml Output 1 ml Net 119 ml Wt Readings from Last 3 Encounters: 12/11/24 116 lb 4.8 oz (52.8 kg) 12/06/24 103 lb (46.7 kg) 11/27/24 103 lb (46.7 kg) Current Medications[1] Physical Exam Vitals reviewed. Constitutional: No acute distress, well-nourished, well kempt, Psych: Mood and affect Appropriate. Good eye contact. Cardiovascular: Regular rate and rhythm, no BLE edema Pulmonary/Chest: Clear to auscultation anterior only, normal respiratory effort, no coughing noted Abdominal: Soft, not distended, + tenderness to palpation, BS present, abdominal binder in place Neurological: alert, attentive, speech is clear but vague , oriented x month, year, place, and self, follows commands, no tremor Skin: warm and dry, no visible rashes or wounds Labs and Imaging: Recent Results (from the past 24 hours) POCT glucose meter Collection Time: 12/19/24 6:21 PM Result Value Ref Range Glucose 67 (L) 70 - 100 mg/dL POCT glucose meter Collection Time: 12/19/24 6:41 PM Result Value Ref Range Glucose 57 (L) 70 - 100 mg/dL POCT glucose meter Collection Time: 12/19/24 6:59 PM Result Value Ref Range Glucose 84 70 - 100 mg/dL POCT glucose meter Collection Time: 12/20/24 12:11 AM Result Value Ref Range Glucose 88 70 - 100 mg/dL CBC Collection Time: 12/20/24 12:17 AM Result Value Ref Range Auto WBC 12.1 (H) 3.6 - 10.7 10*3/uL RBC 2.26 (L) 3.80 - 5.20 10*6/uL Hemoglobin 7.1 (L) 11.7 - 16.0 g/dL Hematocrit 20.9 (L) 35.0 - 47.0 % MCV 92.5 77.0 - 99.0 fL MCH 31.4 26.0 - 34.0 pg MCHC 34.0 30.5 - 36.0 % RDW 15.9 (H) 11.5 - 15.0 % Platelets 237 140 - 440 10*3/uL MPV 10.8 9.0 - 12.7 fL Comprehensive metabolic panel Collection Time: 12/20/24 12:17 AM Result Value Ref Range SODIUM 134 (L) 136 - 145 mmol/L POTASSIUM 4.3 3.5 - 5.1 mmol/L CHLORIDE 106 98 - 107 mmol/L CARBON DIOXIDE 21 (L) 23 - 31 mmol/L ANION GAP 7 3 - 13 mmol/L UREA NITROGEN 15 9 - 23 mg/dL CREATININE 2.84 (H) 0.57 - 1.11 mg/dL GLUCOSE 72 (L) 82 - 115 mg/dL CALCIUM 6.5 (L) 8.8 - 10.0 mg/dL AST (SGOT) 57 (H) <34 U/L ALT <6 <30 U/L ALKALINE PHOSPHATASE 155 (H) 40 - 150 U/L ALBUMIN 1.1 (L) 3.4 - 4.8 g/dL BILIRUBIN, TOTAL 0.6 <1.2 mg/dL TOTAL PROTEIN 5.1 (L) 6.4 - 8.3 g/dL eGFR 16.9 (L) >60.0 mL/min/1.73m*2 POCT glucose meter Collection Time: 12/20/24 7:55 AM Result Value Ref Range Glucose 73 70 - 100 mg/dL Lab Results Component Value Date TSH 0.83 12/13/2024 Lab Results Component Value Date [id number] 1,419 (H) 12/13/2024 Lab Results Component Value Date VITD25 60 (H) 12/11/2024 Reviewed: active problem lists, medications, and labs [1] Current Facility-Administered Medications: acetaminophen (Tylenol) tablet 650 mg, 650 mg, Oral, q4h PRN OR Acetaminophen (Tylenol) 650 MG/20.3ML solution 650 mg, 650 mg, Oral, q4h PRN OR acetaminophen (Tylenol) suppository 650 mg, 650 mg, Rectal, q4h PRN, Radha Kevin, DO acetaminophen (Tylenol) tablet 1,000 mg, 1,000 mg, Oral, q8h, Radha Paredesmin, DO, 1,000 mg at 12/20/24 0934 alteplase (Cathflo Activase) 2 mg in sterile water 2 mL injection, 2 mg, IntraCATHeter, PRN, Sean Castaneda MD, 2 mg at 12/13/248 alteplase (Cathflo Activase) 2 mg in sterile water 2 mL injection, 2 mg, IntraCATHeter, PRN, Sean Castaneda MD, 2 mg at 12/13/242147 amLODIPine (Norvasc) tablet 10 mg, 10 mg, Oral, Daily, Radha Kevin DO, 10 mg at 12/20/24 0848 atorvastatin (Lipitor) tablet 40 mg, 40 mg, Oral, Nightly, John Shepherd DO, 40 mg at 12/19/242000 B complex-vitamin C-folic acid (Nephrocaps) capsule 1 capsule, 1 capsule, Oral, Daily, John Shepherd DO, 1 capsule at 12/20/24 0847 cholecalciferol (Vitamin D-3) tablet 5,000 Units, 5,000 Units, Oral, Daily, John Shepherd DO, 5,000 Units at 12/20/24 0847 dextrose 5 % infusion, 100 mL/hr, IntraVENous, PRN, Ramonita Garnett NP, Stopped at 12/17/24 0500 dextrose 50 % solution 12.5 g, 12.5 g, IntraVENous, PRN, Ramonita Garnett NP, 12.5 g at 12/19/24 1844 glucagon (human recombinant) injection 1 mg, 1 mg, IntraMUSCular, PRN, Ramonita Garnett NP glucose oral gel 15 g, 15 g, Oral, PRN, Ramonita Garnett NP heparin injection 1,200-2,000 Units, 1,200-2,000 Units, IntraCATHeter, PRN, Jose G Alysha Alcaladegrayson, DO, 2,100 Units at 12/14/24 1245 heparin injection 1,200-2,000 Units, 1,200-2,000 Units, IntraCATHeter, PRN, Jose G P Zidehsarai, DO, 2,100 Units at 12/14/24 1245 [Held by provider] heparin injection 5,000 Units, 5,000 Units, SubCUTAneous, 3 times per day, Leticia Leonardo DO, 5,000 Units at 12/17/24 0537 HYDROmorphone (Dilaudid) injection 0.25 mg, 0.25 mg, IntraVENous, q4h PRN OR HYDROmorphone (Dilaudid) injection 0.5 mg, 0.5 mg, IntraVENous, q4h PRN, Chris Verdugo MD, 0.5 mg at 12/20/24 0425 labetalol (Normodyne,Trandate) injection 10 mg, 10 mg, IntraVENous, q6h PRN, Radhajacquelyn Paredesmin, DO, 10 mg at 12/19/241999 levETIRAcetam (Keppra) tablet 250 mg, 250 mg, Oral, BID, Mo Vieira MD, 250 mg at 12/20/24 0932 Lidocaine 4 % patch 1 patch, 1 patch, TransDERmal, Daily, Radha Paredesmin, DO melatonin tablet 5 mg, 5 mg, Oral, Nightly PRN, Eileen Duncan, RADIATION ONCOLOGIST - AGENCY TRAINER, 5 mg at 12/15/242055 naloxone (Narcan) injection 0.4 mg, 0.4 mg, IntraVENous, q5 min PRN, Radha Paredesmin, DO ondansetron ODT (Zofran-ODT) disintegrating tablet 4 mg, 4 mg, Oral, q8h PRN OR ondansetron (Zofran) injection 4 mg, 4 mg, IntraVENous, q6h PRN, John Stuartz, DO oxyCODONE (Roxicodone) immediate release tablet 2.5 mg, 2.5 mg, Oral, q4h PRN, Radha Kuzmin, DO oxyCODONE (Roxicodone) immediate release tablet 5 mg, 5 mg, Oral, q4h PRN, Radhajacquelyn Beltranzmin, DO, 5 mg at 12/20/24 0857 polyethylene glycol (PEG) 3350 (Miralax) packet 17 g, 17 g, Oral, Daily PRN, John Benitez Pentz, DO, 17 g at 12/10/24 1204 pregabalin (Lyrica) capsule 25 mg, 25 mg, Oral, BID PRN, Radhajacquelyn Paredesmin, DO, 25 mg at 12/11/24 1052 QUEtiapine (SEROquel) tablet 12.5 mg, 12.5 mg, Oral, BID PRN, PARK Christiansen CNP sodium chloride 0.9 % infusion, 5-250 mL/hr, IntraVENous, PRN, John Shepherd, DO sodium chloride 0.9 % infusion, 250 mL/hr, IntraVENous, PRN, Ramonita Garnett, MILLINERY DEPARTMENT MANAGER sodium chloride 0.9 % infusion, 250 mL/hr, IntraVENous, PRN, Leticia Leonardo, DO sodium chloride 0.9% (NS) flush 5-40 mL, 5-40 mL, IntraVENous, q12h, John Shepherd, DO, 10 mL at 12/20/24 0426 sodium chloride 0.9% (NS) flush 5-40 mL, 5-40 mL, IntraVENous, PRN, John Shepherd, DO stomahesive in petrolatum (ET Mix), , Topical, 3 times per day, PARK Colin CNP, Given at 12/20/24 0425 stomahesive in petrolatum (ET Mix), , Topical, PRN, PARK Colin CNP, Given at 12/13/24 1748 thiamine (Vitamin B1) tablet 100 mg, 100 mg, Oral, Daily, Mo Vieira MD, 100 mg at 12/20/24 0932 Images from the original note were not included. Hospitalist Progress Note 12/20/2024 Subjective: Admit Date: 12/08/2024 PCP: Roxie Spain Room#: [id number]/[id number] A Hospital Course: Per previous hospitalist's note: Apoorva is a 73 y.o. female with past medical history hx seizure ( 2021 a/w HTN encephalopathy) ,ESRD on HD ,AV graft placement (Dr. 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 difficile. She had a complicated year with admissions and infections Presented to ED this time after a mechanical fall while at dinner and L hip pain after the fall Normally she uses a wheelchair but she stood up to try to help her family member and fell backwards hitting her head on the pavement. She did not consciousness. In the emergency department, patient was hypertensive and mildly tachycardic but other vital signs were stable. Chemistry profile revealed hyponatremia at 135, hypokalemia at 2.6, hypochloremia at 94, creatinine of 3.05. Calcium 8.1. Alk phos 166, albumin 1.6, AST 46. She has a small leukocytosis with a WBC count of 11.2. Her hemoglobin is low at 6.9. She does have a mild left shift. -CT head/cervical spine completed shows endplate erosive changes at the C3/C4 intervertebral disc. No acute intracranial findings In the ER patient was given 40 mEq of potassium, vancomycin and cefepime for broad-spectrum coverage And admitted to observation for nephrology review regarding her electrolyte abnormalities, MRI of the cervical spine to rule out discitis prior to discharge, and blood transfusion. 12/09: No overnight issues. Going to MRI today with plan for HD afterwards . Unfortunately unable to tolerate d/t anxiety, but going to try again with ativan on board later today 12/10:Pain meds have been adjusted This am reports having pain everywhere Says wants to go home when she is ready On 12/11 daughter noted not answering questions and appearing uncomfortable. On 12/12 did not tolerate MRI. Patient continues to be confused and fall overnight. Sitter in room. ID and ortho and palliative care consulted. On 12/13 MRI with sedation ordered, tentatively scheduled for Wednesday but attempting to get scheduled sooner. On 12/14 attempting to get scheduled MRI sooner. Cefepime stopped and mentation improving. On 12/15 MRI planned for Wednesday. Patient with VM in place and soft bilateral wrist restraints. On 12/16 c/o abdominal discomfort and CT abd/pelvis showed likely rectus sheath hematoma. Patient was evaluated by surgery. On 12/17 patient with drop in hemoglobin requiring 3 units of PRBC. Seen by surgery and if hemodynamically unstable would prefer IR intervention before considering surgery as a last resort. Patient to have MRI with sedation cervical spine to check for diskitis and MRI brain for mental status change. Interval History: No event or issues overnight No cp sob nausea Pain controlled Afebrile, vss, BP fluctuating Adult diet Regular 3 Day Weight Change: Unable to Calculate 24HR INTAKE/OUTPUT: Intake/Output Summary (Last 24 hours) at 12/20/2024 0860 Last data filed at 12/19/2024 2217 Gross per 24 hour Intake -- Output 1 ml Net -1 ml Past Medical History: Medical History[1] LABS: CBC: Recent Labs 12/18/2441912/18/24 0912/19/242612/19/24 1009 12/20/24 0017 WBC 19.3* -- 15.7* -- 12.1* RBC 2.92* -- 2.65* -- 2.26* HGB 9.0* < > 8.2* 8.1* 7.1* HCT 25.3* < > 23.6* 24.0* 20.9* MCV 86.6 -- 89.1 -- 92.5 RDW 14.9 -- 15.5* -- 15.9* PLT 327 -- 274 -- 237 < > = values in this interval not displayed. BMP: Recent Labs 12/18/2441912/19/242612/20/24 001 NA 128* 135* 134* K 4.4 3.9 4.3 CL 97* 102 106 CO2 25 21* BUN 18 11 15 CREATININE 3.46* 2.25* 2.84* GLUCOSE 89 73* 72* CALCIUM 7.3* 7.3* 6.5* ANIONGAP 6 8 7 LIVER PROFILE: Recent Labs 12/18/2441912/19/242612/20/24 0017 AST 51* 49* 57* ALT 6 <6 <6 BILITOT 0.5 0.5 0.6 ALKPHOS 136 144 155* PROT 5.5* 5.3* 5.1* PT/INR: No results for input(s): PROTIME, INR in the last 72 hours. CARDIAC ENZYMES: No results for input(s): TROPONINI in the last 72 hours. Procalcitonin: No results found for: PROCAL COVID-19 PCR: No results for input(s): COVID19 in the last 72 hours. Encounter Date: 12/08/24 ECG 12 lead Result Value Heart Rate 94 QRSD Interval 72 QT Interval 360 QTC Interval 451 P I[place] 61 QRS Ionia 20 T Wave Ionia 19 UT Interval 121 Impression Sinus rhythm Probable LVH with secondary repol abnrm Electronically Signed On 12-13-2024 19:24:44 EDT by Bhavik Estrada Transthoracic echocardiogram (TTE) complete with contrast, bubble, strain, and 3D PRN Result Date: 09/15/2024 Left Ventricle: Left ventricle size is normal. Normal wall thickness. Normal left ventricular systolic function. The EF by visual approximation is 60%. Global longitudinal strain is reduced with a value of -15.1%. Normal wall motion. Indeterminate diastolic function. Average E/e' ratio is 11.17. Right Ventricle: Right ventricle size is normal. Normal systolic function. Mitral Valve: Valve structure is normal. Mild to moderate (1-2+) regurgitation with an eccentrically directed jet and and may underestimate severity. No stenosis noted. Left Atrium: Left atrium is moderately dilated. LA Vol Index A/L is 43 mL/m2. Tricuspid Valve: Mild (1+) regurgitation. RVSP is 38 + RAP. @IMAGES@ Objective: Vitals: BP (!) 169/75 Pulse 92 Temp 36.9 C (98.5 F) (Temporal) Resp 20 Ht 5' 4.57 (1.64 m) Wt 116 lb 4.8 oz (52.8 kg) SpO2 98% BMI 19.61 kg/m Pulse Ox: SpO2 Av % Min: 98 % Max: 100 % Supplemental O2: O2 Flow Rate (L/min): 3.5 L/min General appearance: No apparent distress, alert calm HEENT: Eyes: No scleral icterus Oral: MM is semi-moist Cardiovascular: regular Respiratory: not labored Abdomen: not distended Musculoskeletal: Medications: Current Medications[2] Assessment Fall (Pt presents to ED for mechanical fall while at dinner. Pt family states pt fell backwards and hit her head and now has lump on head, denies LOC. Denies blood thinners.) Sepsis likely related to prior upper extremity graft infection -completed IV vanco and meropenem per ID Acute metabolic encephalopathy -related to sepsis and cefepime Acute on chronic anemia -s/p 3 units prbc, likely related to rectus sheath hematoma, seen by surgery, no surgical intervention, heparin subcutaneous on hold ESRD on hemodialysis -per nephrology Hypertensive urgency -scheduled amlodipine and PRN labetalol Seizure disorder- change from IV to PO, tolerated PO Hypokalemia-resolved Hyponatremia - mild Mechanical fall - fall precaution Medical History[3] Plan PT recommended SNF -am labs, replace lytes prn -Drug toxicity monitor: -increase activity -DVT prophylaxis: [] Lovenox [] Heparin [] SCDs [x] Encourage ambulation [] Already on Anticoagulation Advance Directive: DNR-CCA Family discussion: MDM COMPLEXITY --Moderate Anticipated Discharge - Date - medically stable to dc - Location - Skilled Facility - Pending the following - SNF choice Total time spent (which include face to face and non face to face encounters) : 37 minutes Mo Vieira MD Division of Hospitalist Medicine Inpatient Medical Services/[facility] [place] [1] Past Medical History: Diagnosis Date Chronic kidney disease (CKD) Hemodialysis patient (CMS/HCC) (HCC) Wednesday, , Wednesday History of blood transfusion 02/27/2022 Hypertension Seizure ([facility]) Developed seizure-like activity on 02/24 during hospital admission [2] Current Facility-Administered Medications: acetaminophen (Tylenol) tablet 650 mg, 650 mg, Oral, q4h PRN OR Acetaminophen (Tylenol) 650 MG/20.3ML solution 650 mg, 650 mg, Oral, q4h PRN OR acetaminophen (Tylenol) suppository 650 mg, 650 mg, Rectal, q4h PRN, Radha Kuzmin, DO acetaminophen (Tylenol) tablet 1,000 mg, 1,000 mg, Oral, q8h, Radha Kuzmin, DO, 1,000 mg at 12/19/24 181 alteplase (Cathflo Activase) 2 mg in sterile water 2 mL injection, 2 mg, IntraCATHeter, PRN, Sean Castaneda MD, 2 mg at 12/13/242147 alteplase (Cathflo Activase) 2 mg in sterile water 2 mL injection, 2 mg, IntraCATHeter, PRN, Sean Castaneda MD, 2 mg at 12/13/24 2148 amLODIPine (Norvasc) tablet 10 mg, 10 mg, Oral, Daily, Radha Kevin, DO, 10 mg at 12/20/24 0848 atorvastatin (Lipitor) tablet 40 mg, 40 mg, Oral, Nightly, John Shepherd, DO, 40 mg at 12/19/242000 B complex-vitamin C-folic acid (Nephrocaps) capsule 1 capsule, 1 capsule, Oral, Daily, John Shepherd, DO, 1 capsule at 12/20/24 0847 cholecalciferol (Vitamin D-3) tablet 5,000 Units, 5,000 Units, Oral, Daily, John Shepherd, DO, 5,000 Units at 12/20/24 0847 dextrose 5 % infusion, 100 mL/hr, IntraVENous, PRN, Ramonita Garnett NP, Stopped at 12/17/24 0500 dextrose 50 % solution 12.5 g, 12.5 g, IntraVENous, PRN, Ramonita Garnett NP, 12.5 g at 12/19/24 1844 glucagon (human recombinant) injection 1 mg, 1 mg, IntraMUSCular, PRN, Ramonita Garnett NP glucose oral gel 15 g, 15 g, Oral, PRN, Ramonita Garnett NP heparin injection 1,200-2,000 Units, 1,200-2,000 Units, IntraCATHeter, PRN, Jose G P Zidehsarai, DO, 2,100 Units at 12/14/24 1245 heparin injection 1,200-2,000 Units, 1,200-2,000 Units, IntraCATHeter, PRN, Jose G P Zidehsarai, DO, 2,100 Units at 12/14/24 1245 [Held by provider] heparin injection 5,000 Units, 5,000 Units, SubCUTAneous, 3 times per day, Leticia Leonardo DO, 5,000 Units at 12/17/24 0537 HYDROmorphone (Dilaudid) injection 0.25 mg, 0.25 mg, IntraVENous, q4h PRN OR HYDROmorphone (Dilaudid) injection 0.5 mg, 0.5 mg, IntraVENous, q4h PRN, Chris Verdugo MD, 0.5 mg at 12/20/24 0425 labetalol (Normodyne,Trandate) injection 10 mg, 10 mg, IntraVENous, q6h PRN, Radha Devinzmin, DO, 10 mg at 12/19/241999 levETIRAcetam in sodium chloride (Keppra) IVPB 500 mg, 500 mg, IntraVENous, Daily, Jeane Carlson APRN - AGENCY TRAINER, Stopped at 12/19/24 1145 Lidocaine 4 % patch 1 patch, 1 patch, TransDERmal, Daily, Radha Paredesmin, DO melatonin tablet 5 mg, 5 mg, Oral, Nightly PRN, PARK Christiansen CNP, 5 mg at 12/15/242055 naloxone (Narcan) injection 0.4 mg, 0.4 mg, IntraVENous, q5 min PRN, Radha Paredesmin, DO ondansetron ODT (Zofran-ODT) disintegrating tablet 4 mg, 4 mg, Oral, q8h PRN OR ondansetron (Zofran) injection 4 mg, 4 mg, IntraVENous, q6h PRN, John Shepherd, oxyCODONE (Roxicodone) immediate release tablet 2.5 mg, 2.5 mg, Oral, q4h PRN, Radha Beltranzmin, DO oxyCODONE (Roxicodone) immediate release tablet 5 mg, 5 mg, Oral, q4h PRN, Radha Beltranzmin, DO, 5 mg at 12/11/24 2250 polyethylene glycol (PEG) 3350 (Miralax) packet 17 g, 17 g, Oral, Daily PRN, John Benitez Pentz, DO, 17 g at 12/10/24 1204 pregabalin (Lyrica) capsule 25 mg, 25 mg, Oral, BID PRN, Radha Paredesmin, DO, 25 mg at 12/11/24 1052 QUEtiapine (SEROquel) tablet 12.5 mg, 12.5 mg, Oral, BID PRN, Eileen Duncan APRN - AGENCY TRAINER sodium chloride 0.9 % infusion, 5-250 mL/hr, IntraVENous, PRN, John Victor Manuel Pentz, DO sodium chloride 0.9 % infusion, 250 mL/hr, IntraVENous, PRN, Ramonita Garnett, BRAYDEN sodium chloride 0.9 % infusion, 250 mL/hr, IntraVENous, PRN, Leticia Malissa, DO sodium chloride 0.9% (NS) flush 5-40 mL, 5-40 mL, IntraVENous, q12h, John Victor Manuel Pentz, DO, 10 mL at 12/20/24 0426 sodium chloride 0.9% (NS) flush 5-40 mL, 5-40 mL, IntraVENous, PRN, John Victor Manuel Pentz, DO stomahesive in petrolatum (ET Mix), , Topical, 3 times per day, Rosanna Perez APRN - TAMIR, Given at 12/20/24 0425 stomahesive in petrolatum (ET Mix), , Topical, PRN, Rosanna Perez APRN - TAMIR, Given at 12/13/24 1748 thiamine (Vitamin B1) 500 mg in sodium chloride 0.9 % 100 mL IVPB, 500 mg, IntraVENous, TID, Leticia Malissa, DO, Stopped at 12/19/24 2217 [3] Past Medical History: Diagnosis Date Chronic kidney disease (CKD) Hemodialysis patient (CMS/HCC) (HCC) Wednesday, , Wednesday History of blood transfusion 02/27/2022 Hypertension Seizure (HCC) Developed seizure-like activity on 02/24 during hospital admission Nutrition Assessment Type and Reason for Visit: Reassess Nutrition Recommendations/Plan: Continue with fully liberalized diet as ordered; pt is Dietary Assist to ensure meal orders are being placed appropriately. RD previously adjusted ONS by discontinuing Nepro and continuing Magic Cup BID; will try to assess pt at time of lunch tray to see in real time if she prefers/is consuming Magic Cup; otherwise, while mentation improves can offer alternate options as well. Please record % consumed of meals in I/O Flowsheet. RD to monitor weight, labs, fluid, GOC & follow up weekly. Malnutrition Assessment: Malnutrition Status: Moderate malnutrition (per RD assessment 12/14) Context: Acute Illness (clearly on chronic, several recent admissions noted) Nutrition Assessment: Pt with PMH including ESRD on HD, PSH AV graft placement (2022), excision of infected LUE AV graft 11/02/2024, and evacuation of LUE hematoma on 11/05/2024, chronic anemia requiring blood transfusions, HTN, seizure disorder, A-fib, hx of C diff who initially presented to the ED s/p fall (per chart, pt usually uses wheelchair, but stood up to try to help her family member and fell backwards, hitting her head on the pavement, there was no LOC), pt had mild leukocytosis of 11.2, Hgb 6.9, and K 2.6, received 1 unit pRBC, CT head and cervical spine showed endplate erosive changes at the C3/C4 intervertebral disc; Ortho consulted, MRI cervical spine ordered to evaluate for epidural abscess and need for operative intervention, as well as MRI brain (pt was refusing MRI); pt note, pt admitted 08/14-08/24 for infected hematoma in right thigh and anterior hip that was drained, then returned to the hospital for expanding hematoma requiring 2 units pRBC, from 09/13-10/12 pt was treated for new onset A-fib in the setting of COVID, and was positive for Enterobacter cloaecae bacteremia, Klebsiella pneumoniae, Klebsiella oxytoca, and Enterococcus casseliflavus, she was treated in the ICU transiently due to high fevers, tachycardia, and tachypnea, possibly related to the meropenem she was on and transitioned to Cefdinir and Linezolid until 10/19, she was also treated for C diff colitis, at that time, she was d/c to nursing facility on tunneled HD catheter, on 10/22 there was concern for fistula infection and she had excision of the left upper extremity infected graft on 11/02, left arm culture grew Enterobacter cloacae, ID recommended Bactrim renally dosed through 11/13, pt was having bleeding from AV fistula requiring blood transfusions and on 11/05 she had ex lap of the left upper extremity with evacuation of hematoma; multiple services consulted here including Ortho and ID (for suspected diskitis and recent fistula infection); on 12/12 while here pt had unwitnessed fall in room, sitter was placed and work-up completed; Geriatrics following, Palliative Care also consulted/following (lacks decision making capacity). Since last RD visit General Surgery (12/16) was consulted for likely rectus sheath hematoma which likely happened a few days prior and likely iatrogenic injury from subq heparin injections given extremely small habitus, no surgical intervention recommended, abdominal binder recommended to be in place at all times; pt received RBC infusion x3 on 12/17; plan remained to complete MRI w/ sedation of cervical spine to check for diskitis and MRI brain for mental status change, completed 12/18 and per Ortho: cervical MRI (12/18/2024): Trace retrolisthesis of C3 on C4 contributing to mild-moderate central stenosis, disc osteophyte complex appreciated about C5-C6 causing cord contact without obvious cord signal change, overall straightening of cervical lordosis, enhanced osseous edema appreciated at inferior endplate of C3 and superior endplate of C4 that is dark on T1 imaging, bright on T1 postcontrast imaging and bright on T2 imaging, fluid void defect appreciated about the cervicothoracic spine', no acute plan for OR, tentatively plan on C3-C4 biopsy per IR pending Ortho attending discussion, d/t pt's mentation she has refused formal spinal exam, MRI brain with generalized parenchymal loss, moderate chronic microvascular ischemic changes, and probable amyloid angiopathy; pt has required soft restraints, VM in room d/t altered mentation during admission, pt pulling at lines; last HD 12/18. Remains ordered Regular diet, RD previously discontinued Nepro d/t accumulating in room, pt receiving Magic Cup BID. Nutrition Related Findings: +BS, last BM 12/16 (BM today per pt report), +abdominal binder, missing teeth; nonpitting generalized, mild BUE, +2 BLE edema; medications include nephrocaps; labs: Na (134), ALP (155), SCr (2.84); mentation improved, VM remains Wound Type: Pressure Injury, Stage III (to L buttock improving per Wound Care) Current Nutrition Therapies: Adult diet Regular Current Oral Intake Average Meal Intake: 0%, 1-25%, 26-50% (26-50% recorded this morning) Average Supplements Intake: Unable to assess Anthropometric Measures: Height: 164 cm (5' 4.57) Current Body Weight: (pt in chair this AM, last weight from >one week ago) Admission Body Weight: 50.3 kg (111 lb) (stated) Usual Body Weight: (Most recent EDW 47.1kg (104#) from 09/2024. Wt usually range between 105-121# during admissions since August 2024. Wts prior to that within the past year between 105-112#.) [place] Body Weight (lbs) (Calculated): 123 lbs [place] Body Weight (Kg) (Calculated): 56 kg % [place] Body Weight (Calculated): 94.6 % BMI (kg/m2) (Calculated): 19.6 Weight Adjustment For: No Adjustment BMI Categories: Underweight (BMI less than 22) age over 65 Nutrition Interventions: Nutrition Education/Counseling: Education not appropriate Coordination of Nutrition Care: Continue to monitor while inpatient Plan of Care discussed with: N/A Goals: Previous Goal Met: (? very slight progress this AM) Goals: PO intake 50% or greater, by next RD assessment Nutrition Monitoring and Evaluation: Behavioral-Environmental Outcomes: None Identified Food/Nutrient Intake Outcomes: Food and Nutrient Intake, Supplement Intake Physical Signs/Symptoms Outcomes: Biochemical Data, GI Status, Fluid Status or Edema, Meal Time Behavior, Nutrition Focused Physical Findings, Skin, Weight Discharge Planning: Too soon to determine Alexus Denney RD Contact: Secure chat or *[phone] Orthopedic Surgery Progress Note Orthopedic surgery paged regarding patient ability to perform spine exam. On evaluation, patient is seen resting in bedside chair. Patient becomes frustrated during encounter and states isn't it late? Discussed with patient it is 12:00PM and that this provider presented for spine exam. Patient refuses exam, and refuses to answer orientation questions. Please page ortho resident skilled nursing professional if/when patient mentation improves so that a formal spine exam may be performed. Orthopaedic surgery will sign off. Please page skilled nursing professional orthopaedic resident for questions or concerns. Images from the original note were not included. OCCUPATIONAL THERAPY Formerly [facility] Initial Evaluation Name/MRN: Apoorva Gonzalez ([id number]) Evaluation Date: 12/19/2024 Date of : 1950 Admission Date: 12/08/2024 8:06 PM Age: 74 y.o. Room/Bed: W6-633/W6-633 A Discharge Recommendation: [facility] Facility Other: Continue to assess Assessment IMPRESSION: Pt presented with a Fall upon admission. No acute finding per imagining. Pt is from a facility and requires assistance at baseline for ADL's and functional ambulation w/FWW, pt states she uses w/c for community distances. Pt is a poor historian, and requires Mod A for STS from recliner w/FWW x 2 trials. Pt noted to have a flexed posture holding onto chair, VC's to stand upright. Pt is currently Max-Mod A for LB ADL's and Min A-SBA for UB ADL's. Recommending SNF at this time to address functional deficits. Pt will continue to benefit from acute OT services while admitted to increase functional independence. Admitting Diagnosis: Fall PMHx-ESRD on HD, PSH AV graft placement (Dr. Fernandez 2022), excision of infected LUE AV graft 11/02/24 and RTOR on 11/05 for evacuation of LUE hematoma, chronic anemia requiring blood transfusions, HTN, seizure disorder, A-fib, history of C. difficile. Performance Deficits /Impairments: Increased Pain, Decreased Functional Mobility, Decreased ADL status, Decreased Strength, Decreased Safety Awareness, Decreased Endurance, Decreased Balance, Decreased Cognition, and Decreased Posture Prognosis: Fair Decision Making: Medium Complexity Subjective Pt sitting in recliner upon OT arrival; agreeable to OT eval with encouragement. Pt sitting in recliner at end of session with call light within reach, chair alarm on, and RN notified. Pain: Pt denies pain at beginning of session, but states increased pain all over with mobility. Past Medical History: Medical History[1] Past Surgical History: Surgical History[2] Admission Diagnosis: Patient Active Problem List Diagnosis Date Noted Moderate malnutrition (CMS/HCC) (HCC) 12/14/2024 Fall, initial encounter 12/09/2024 Fall (on)(from) sidewalk curb, initial encounter 12/09/2024 End stage congestive heart failure (HCC) 11/13/2024 Wound dehiscence 11/12/2024 Seizures ([facility]) 11/02/2024 ESRD (end stage renal disease) ([facility]) 11/02/2024 Dialysis patient ([facility]) 11/02/2024 Sepsis, due to unspecified organism, unspecified whether acute organ dysfunction present ([facility]) 10/22/2024 Edema of left lower extremity 10/05/2024 COVID-19 09/14/2024 Shortness of breath 03/02/2024 Pulmonary edema, acute ([facility]) 02/19/2024 Gastrointestinal hemorrhage, unspecified gastrointestinal hemorrhage type 01/19/2024 Hypertensive emergency 02/21/2022 Anemia 01/19/2024 Medical Precautions: Contact Proper PPE donned/doffed in accordance with facility standards. Fall Risk: [place] Fall Risk Score: 100 (Low Risk) [place] Fall Risk Score: 100 (High Risk) Precautions/Restrictions: Lines/Drains/Airways: PIV, Hemodialysis Cath, chair alarm, abdominal binder Fall Precautions Family/Caregiver Present: none Overall Cognitive Status: Exceptions - Arousal/alertness: appropriate responses to stimuli - Following commands: follows one step commands with increased time and follows one step commands with repetition - Safety judgement: decreased awareness of need for safety - Problem solving: assistance required to identify errors made and assistance required to correct errors made - Sequencing: requires cues for some Overall Orientation Status: Oriented to Place and Oriented to Person unable to state year Social/Functional History Patient admitted from SNF. Assistive Equipment: front wheeled walker Prior Level of Function Prior Level of ADL Function: Required Assist Prior Level of Mobility: Required Assist; Device: Front wheeled walker and Wheelchair - manual Prior Level of Transfers: Required Assist Objective ADLs Therapist asked for pt to attempt to doff B socks sitting in recliner, pt states I can't and does not attempt. Pt is currently Max-Mod A for LB ADL's and Min A-SBA for UB ADL's given current skill set and limitations. Upper Extremity Assessment AROM: WFL PROM: Not assessed this session Strength: WFL Grossly 3+/5 Bed Mobility Pt up in chair upon arrival Transfers/Mobility Sit to stand: Mod Assist Stand to sit: Mod Assist Standing balance: Mod Assist Pt requires Mod A for STS from recliner w/FWW x 2 trials. Pt noted to have a flexed posture holding onto chair, VC's to stand upright. Pt also noted to have posterior lean and is unsteady. Device(s) used: Front wheeled walker AM-PAC AM-PAC Inpatient Daily Activity Raw Score: 14 ADL Inpatient CMS G-Code Modifier: CK Plan Pt would benefit from skilled acute OT services to address Strengthening, Balance Training, Self-Care/ADL Training, Functional Mobility Training, Endurance Training, Safety Education and Training, Equipment Evaluation/Education, and Cognitive Reorientation Frequency: 3x/week for 4 weeks Barriers: Impaired balance, Lower extremity weakness, Upper extremity weakness, Decreased endurance, Limited safety awareness, and Confusion Safety/Education Safety Safety Devices in place: All fall risk precautions in place, call light within reach, left in chair, chair alarm in place, patient at risk for falls, and nurse notified Restraints: No Education Education Given To: patient Education Provided: OT Role, Plan of Care, ADL Adaptive Strategies, Transfer Training, Equipment, Fall Prevention Education, Discharge Recommendations, and Benefits of Increasing Activity Education Method: Verbal Barriers to Learning: Cognition Education Outcome: Continued Education Needed Goals Patient Stated Goal: To finish breakfast. Encounter Problems Encounter Problems (Active) Balance Patient will maintain dynamic standing balance for 5-10 minutes with CGA in order to demonstrate decreased risk of falling. Start: 12/19/24 Expected End: 01/16/25 Cognition Patient will sequence through basic ADL with no more than 1 cue Start: 12/19/24 Expected End: 01/16/25 Dressings Lower Extremities Patient will dress lower body with Min A AE PRN Start: 12/19/24 Expected End: 01/16/25 Grooming Patient will complete daily grooming tasks with supervision Start: 12/19/24 Expected End: 01/16/25 Mobility Patient will demonstrate functional ambulation with SBA Start: 12/19/24 Expected End: 01/16/25 Toileting Patient will complete toileting tasks at bedside commode with CGA. Start: 12/19/24 Expected End: 01/16/25 Transfers Patient will complete functional transfer with least restrictive device with CGA in order to prepare for ambulation. Start: 12/19/24 Expected End: 01/16/25 Patient will perform bed mobility with SBA in order to improve independence and prepare for out of bed mobility. Start: 12/19/24 Expected End: 01/16/25 Therapy Time Individual Co-Treatment Co-Evaluation Time In 919 Time Out 0933 Minutes 13 Shawn Felder OT Patient's Occupational Therapy Plan of Care supervision is transferred to a [facility] Therapy Services Occupational Therapist. Goals and/or treatment plan was established in collaboration with patient/family/other representatives. [1] Past Medical History: Diagnosis Date Chronic kidney disease (CKD) Hemodialysis patient (CMS/HCC) (HCC) Wednesday, , Wednesday History of blood transfusion 02/27/2022 Hypertension Seizure (HCC) Developed seizure-like activity on 02/24 during hospital admission [2] Past Surgical History: Procedure Laterality Date AV FISTULA PLACEMENT Left 08/07/2022 COLONOSCOPY N/A 01/25/2024 Performed by Chrissy Gilman MD at [facility] ENDOSCOPY IR CVC TUNNELED DIALYSIS CATHETER PLACEMENT 02/27/2022 IR CVC TUNNELED CATHETER PLACEMENT 02/27/2022 Candis Andrade MD [facility] SPECIAL PROCEDURES IR EMBOLIZATION 01/24/2024 IR EMBOLIZATION 01/24/2024 Jovan Glynn MD [facility] SPECIAL PROCEDURES VASCULAR SURGERY Left 11/02/2024 EXCISION OF LEFT UPPER EXTREMITY INFECTED GRAFT (JIM) VASCULAR SURGERY Left 11/05/2024 REVISION OR REPAIR, AV FISTULA (JIM) [facility] Geriatric Medicine Inpatient Consult Service Admission Date: 12/08/2024 Assessment Principal Problem: Fall, initial encounter Active Problems: Fall (on)(from) sidewalk curb, initial encounter Moderate malnutrition (CMS/HCC) (HCC) Plan Acute Encephalopathy --Improved, oriented x 3 at time of visit --Etiology unclear. Likely multifactorial related to concern for infection (WBC worsened today), pain, hospitalization, medication effects, electrolyte abnormalities, reduced PO intake --Continue to treat acute/underlying illness per primary service. Blood cultures with NGTD at 5 days. ID adjusting antibiotics- cefepime discontinued and continued on Merrem. Seen by ID yesterday recommending to monitoring off antibiotics. --MRI brain completed 12/18 with no acute intracranial abnormalities. Showing generalized parenchymal loss, moderate chronic microvascular ischemic changes, and probable amyloid angiopathy. --Recommend to trial out of restraints as able. Restraints discontinued. Visual monitor remains at bedside. -- TSH WNL, vitamin B12 robust, and ammonia WNL --Encourage PO intake, time up in chair, family visits, supervised ambulation, and sleep hygiene --If agitated, assess for and consider treating for pain --QTc= 451 ms on 12/11/24 --[place] PRN Seroquel for ONLY if danger to self/others/treatment- Do not anticipate needing at discharge. --Would avoid benzodiazepines in this older adult patient as this drug class increases risk of falls and confusion along with other potentially negative side effects which would outweigh any theoretical benefit. --Continue melatonin PRN at HS for insomnia --Monitor for constipation/urinary retention - last BM 12/16- Recommend scheduled bowel regimen --Possible medication contributions: PRN narcotics ?cefepime-ID following and discontinued 12/13 Sertraline- discontinued as below Fall Declining functional status --Related to physical deconditioning, multiple hospitalizations, ESRD, seizure history --Unwitnessed fall on admission on 12/12/24 --Continue PT/OT as able while inpatient - Recommending SNF per PT/OT evaluation --Anticipate d/c to return to [facility] --Vitamin D 60 --Check orthostatic vital signs as able --Palliative care following for ongoing goals of care conversations --Diesel Dinkey Operator- supplements ordered BID Acute pain due to trauma -Management per primary service -Agree with scheduled tylenol (1000 mg q 8 hours) unless otherwise contraindicated. Recommend adjusting to 1000 mg PO TID -If narcotics are required recommend using lowest effective dose of oral narcotic as needed for breakthrough pain. -Continue lidocaine patch -Optimize nonpharmacologic pain treatment modalities. -Ensure that bowel regimen is in place while on narcotic regimen. Constipation -Chronic, recurrent problem -Management per primary service -Last documented BM 12/16 -Agree with MiraLAX as needed, goal is soft BM no less than every 3 days. Anxiety -Management per primary service -Sertraline discontinued. Initially started on admission and could possible contribute to encephalopathy. -Can continue pregabalin 25 mg daily PRN anxiety as this can help with pain/mood. Would not increase dose any higher due to CrCl Polypharmacy Medications reviewed with geriatric pharmacist with recommendations as below: -Levetiracetam level 11.3 -As a new medication with LEGAL TRANSCRIBER activity, sertraline may be a contributor to encephalopathy. Now discontinued - With poor PO intake and AMS, agree with changing PO thiamine to thiamine 500 mg in 100 mL NS or D5W IV three times daily for 2-7 days. Then would recommend thiamine 250 mg in 100 mL NS or D5W IV daily for 3-5 days, then return to PO regimen. Plan discussed with RN. Follow-up: will follow with you Subjective Chief Complaint: fall Geriatrics consulted for fall HPI- The patient is known to me. 74 y.o. year-old female admitted to acute care from [facility] for fall on 12/08. Patient reportedly fell backwards and hit the back of her head on pavement, no loss of consciousness. Head CT in the emergency department did not show any acute intracranial findings, concerning for discitis. Diagnosed with anemia and concern for discitis. Started on empiric antibiotics and MRI c-spine pending. Hospital stay complicated by delirium. Unable to obtain MRI after multiple attempts. Interval History: Remains on 6W. No acute overnight events. Seen by general surgery with no surgical intervention and recommend to continue abdominal binder. Labs reviewed with sodium 135, BUN 11, creatinine 2.25, glucose 73, WBC 15.7, hemoglobin 8.2. Received PRN hydromorphone x2 on 12/18 and once this morning. MRI cervical spine showing unlikely concern for infection, at C3-4 severe disc height loss. MRI brain with generalized parenchymal loss, moderate chronic microvascular ischemic changes, and probable amyloid angiopathy. Patient awake and alert up to the chair. Reports she was not doing well and is feeling better today. Reports generalized pain today. Patient states she ate a few bites of breakfast. Patient states she feels good sitting up to the chair today. 12/19: Seen by PT. Recommending SNF. Mod assist with ambulation 3 ft + 12 fr with FWW 12/19: Seen by OT. Recommending SNF. Review of Systems Constitutional: Positive for activity change and appetite change. Negative for fatigue. HENT: Negative for sore throat and trouble swallowing. Respiratory: Negative for cough and shortness of breath. Gastrointestinal: Negative for abdominal pain. Musculoskeletal: Positive for arthralgias and myalgias. Neurological: Negative for dizziness, light-headedness and headaches. Psychiatric/Behavioral: Positive for confusion. Negative for sleep disturbance. The patient is not nervous/anxious. Objective BP 145/82 (BP Location: Right leg, Patient Position: Sitting) Pulse 100 Temp 36.5 C (97.7 F) (Temporal) Resp 16 Ht 5' 4.57 (1.64 m) Wt 116 lb 4.8 oz (52.8 kg) SpO2 95% BMI 19.61 kg/m Intake/Output Summary (Last 24 hours) at 12/19/2024 1113 Last data filed at 12/18/2024 1906 Gross per 24 hour Intake 469.06 ml Output -- Net 469.06 ml Wt Readings from Last 3 Encounters: 12/11/24 116 lb 4.8 oz (52.8 kg) 12/06/24 103 lb (46.7 kg) 11/27/24 103 lb (46.7 kg) Current Medications[1] Physical Exam Vitals reviewed. Constitutional: No acute distress, well-nourished, mildly disheveled, ill-appearing Psych: Mood and affect Appropriate. Good eye contact. Cardiovascular: Regular rate and rhythm, no BLE edema Pulmonary/Chest: Clear to auscultation anterior only, normal respiratory effort, no coughing noted Abdominal: Soft, not distended, no tenderness to palpation, BS present, abdominal binder in place Neurological: alert, attentive, speech is clear but vague , oriented x month, year, place, and self, follows commands, no tremor Skin: warm and dry, no visible rashes or wounds Labs and Imaging: Recent Results (from the past 24 hours) Hemoglobin and hematocrit, blood Collection Time: 12/18/24 8:06 PM Result Value Ref Range Hemoglobin 7.9 (L) 11.7 - 16.0 g/dL Hematocrit 22.6 (L) 35.0 - 47.0 % CBC Collection Time: 12/19/24 12:27 AM Result Value Ref Range Auto WBC 15.7 (H) 3.6 - 10.7 10*3/uL RBC 2.65 (L) 3.80 - 5.20 10*6/uL Hemoglobin 8.2 (L) 11.7 - 16.0 g/dL Hematocrit 23.6 (L) 35.0 - 47.0 % MCV 89.1 77.0 - 99.0 fL MCH 30.9 26.0 - 34.0 pg MCHC 34.7 30.5 - 36.0 % RDW 15.5 (H) 11.5 - 15.0 % Platelets 274 140 - 440 10*3/uL MPV 10.7 9.0 - 12.7 fL Comprehensive metabolic panel Collection Time: 12/19/24 12:27 AM Result Value Ref Range SODIUM 135 (L) 136 - 145 mmol/L POTASSIUM 3.9 3.5 - 5.1 mmol/L CHLORIDE 102 98 - 107 mmol/L CARBON DIOXIDE 25 23 - 31 mmol/L ANION GAP 8 3 - 13 mmol/L UREA NITROGEN 11 9 - 23 mg/dL CREATININE 2.25 (H) 0.57 - 1.11 mg/dL GLUCOSE 73 (L) 82 - 115 mg/dL CALCIUM 7.3 (L) 8.8 - 10.0 mg/dL AST (SGOT) 49 (H) <34 U/L ALT <6 <30 U/L ALKALINE PHOSPHATASE 144 40 - 150 U/L ALBUMIN 1.2 (L) 3.4 - 4.8 g/dL BILIRUBIN, TOTAL 0.5 <1.2 mg/dL TOTAL PROTEIN 5.3 (L) 6.4 - 8.3 g/dL eGFR 22.4 (L) >60.0 mL/min/1.73m*2 Hemoglobin and hematocrit, blood Collection Time: 12/19/24 10:09 AM Result Value Ref Range Hemoglobin 8.1 (L) 11.7 - 16.0 g/dL Hematocrit 24.0 (L) 35.0 - 47.0 % Lab Results Component Value Date TSH 0.83 12/13/2024 Lab Results Component Value Date [id number] 1,419 (H) 12/13/2024 Lab Results Component Value Date VITD25 60 (H) 12/11/2024 Reviewed: allergies, imaging, active problem lists, medications, and labs [1] Current Facility-Administered Medications: acetaminophen (Tylenol) tablet 650 mg, 650 mg, Oral, q4h PRN OR Acetaminophen (Tylenol) 650 MG/20.3ML solution 650 mg, 650 mg, Oral, q4h PRN OR acetaminophen (Tylenol) suppository 650 mg, 650 mg, Rectal, q4h PRN, Radha Kevin, acetaminophen (Tylenol) tablet 1,000 mg, 1,000 mg, Oral, q8h, Radha Paredesmin, DO, 1,000 mg at 12/14/24 0540 alteplase (Cathflo Activase) 2 mg in sterile water 2 mL injection, 2 mg, IntraCATHeter, PRN, Sean Castaneda MD, 2 mg at 12/13/242147 alteplase (Cathflo Activase) 2 mg in sterile water 2 mL injection, 2 mg, IntraCATHeter, PRN, Sean Castaneda MD, 2 mg at 12/13/242147 amLODIPine (Norvasc) tablet 10 mg, 10 mg, Oral, Daily, Radha Kevin, DO, 10 mg at 12/19/24 09 atorvastatin (Lipitor) tablet 40 mg, 40 mg, Oral, Nightly, John Shepherd DO, 40 mg at 12/15/242055 B complex-vitamin C-folic acid (Nephrocaps) capsule 1 capsule, 1 capsule, Oral, Daily, John Shepherd DO, 1 capsule at 12/19/24 0951 cholecalciferol (Vitamin D-3) tablet 5,000 Units, 5,000 Units, Oral, Daily, John Shepherd DO, 5,000 Units at 12/19/24 0951 dextrose 5 % infusion, 100 mL/hr, IntraVENous, PRN, Ramonita Garnett NP, Stopped at 12/17/24 0500 dextrose 50 % solution 12.5 g, 12.5 g, IntraVENous, PRN, Ramonita Garnett NP, 12.5 g at 12/12/24 2230 glucagon (human recombinant) injection 1 mg, 1 mg, IntraMUSCular, PRN, Ramonita Garnett NP glucose oral gel 15 g, 15 g, Oral, PRN, Ramonita Garnett NP heparin injection 1,200-2,000 Units, 1,200-2,000 Units, IntraCATHeter, PRN, Jose G P Fredrickdehsarai, DO, 2,100 Units at 12/14/24 1245 heparin injection 1,200-2,000 Units, 1,200-2,000 Units, IntraCATHeter, PRN, Jose G P Zidehsarai, DO, 2,100 Units at 12/14/24 1245 [Held by provider] heparin injection 5,000 Units, 5,000 Units, SubCUTAneous, 3 times per day, Leticia Leonardo DO, 5,000 Units at 12/17/24 0537 HYDROmorphone (Dilaudid) injection 0.25 mg, 0.25 mg, IntraVENous, q4h PRN OR HYDROmorphone (Dilaudid) injection 0.5 mg, 0.5 mg, IntraVENous, q4h PRN, Chris Verdugo MD, 0.5 mg at 12/19/24 0031 labetalol (Normodyne,Trandate) injection 10 mg, 10 mg, IntraVENous, q6h PRN, Radha Kevin, DO, 10 mg at 12/18/24 1854 levETIRAcetam in sodium chloride (Keppra) IVPB 500 mg, 500 mg, IntraVENous, Daily, Jeane Carlson, RADIATION ONCOLOGIST - AGENCY TRAINER, Stopped at 12/18/24 1950 Lidocaine 4 % patch 1 patch, 1 patch, TransDERmal, Daily, Radha Kevin, melatonin tablet 5 mg, 5 mg, Oral, Nightly PRN, Eileen Duncan, RADIATION ONCOLOGIST - AGENCY TRAINER, 5 mg at 12/15/242055 naloxone (Narcan) injection 0.4 mg, 0.4 mg, IntraVENous, q5 min PRN, Radha Kevin, DO ondansetron ODT (Zofran-ODT) disintegrating tablet 4 mg, 4 mg, Oral, q8h PRN OR ondansetron (Zofran) injection 4 mg, 4 mg, IntraVENous, q6h PRN, John Shepherd, oxyCODONE (Roxicodone) immediate release tablet 2.5 mg, 2.5 mg, Oral, q4h PRN, Radha Paredesmin, DO oxyCODONE (Roxicodone) immediate release tablet 5 mg, 5 mg, Oral, q4h PRN, Radha Kevin, DO, 5 mg at 12/11/24 2250 polyethylene glycol (PEG) 3350 (Miralax) packet 17 g, 17 g, Oral, Daily PRN, John Shepherd, DO, 17 g at 12/10/24 1204 pregabalin (Lyrica) capsule 25 mg, 25 mg, Oral, BID PRN, Radha Kuzmin, DO, 25 mg at 12/11/24 1052 QUEtiapine (SEROquel) tablet 12.5 mg, 12.5 mg, Oral, BID PRN, PARK Christiansen CNP sodium chloride 0.9 % infusion, 5-250 mL/hr, IntraVENous, PRN, John Shepherd, DO sodium chloride 0.9 % infusion, 250 mL/hr, IntraVENous, PRN, Ramonita Garnett, MILLINERY DEPARTMENT MANAGER sodium chloride 0.9 % infusion, 250 mL/hr, IntraVENous, PRN, Leticia Leonardo, sodium chloride 0.9% (NS) flush 5-40 mL, 5-40 mL, IntraVENous, q12h, John Shepherd, DO, 10 mL at 12/19/24 0509 sodium chloride 0.9% (NS) flush 5-40 mL, 5-40 mL, IntraVENous, PRN, John Stuartz, DO stomahesive in petrolatum (ET Mix), , Topical, 3 times per day, PARK Colin CNP, Given at 12/18/242000 stomahesive in petrolatum (ET Mix), , Topical, PRN, PARK Colin CNP, Given at 12/13/24 1748 thiamine (Vitamin B1) 500 mg in sodium chloride 0.9 % 100 mL IVPB, 500 mg, IntraVENous, TID, Leticia Leonardo DO, Stopped at 12/19/24 1026 Images from the original note were not included. PHYSICAL THERAPY Formerly [facility] Initial Evaluation Name/MRN: Apoorva Gonzalez ([id number]) Evaluation Date: 12/19/2024 Date of : 1950 Admission Date: 12/08/2024 8:06 PM Age: 74 y.o. Room/Bed: [facility]/W6-633 A Discharge Recommendation: [facility] Facility Assessment IMPRESSION: Pt is a 74 y.o female admitted for a recent fall. The pt was Mod A for bed mobility and ambulation with FWW. Pt was Max A for transfers. The pt reports needing assist and using a walker at baseline but is a poor historian. The pt remains below functional baseline and is a high fall risk. Pt is limited by weakness and cognition. Recommending SNF at discharge. Admitting Diagnosis: recent fall Prognosis: fair Performance Deficits /Impairments: Decreased Functional Mobility, Decreased ADL status, Decreased Strength, Decreased Safety Awareness, Decreased Endurance, Decreased Balance, Decreased High Level IADLs, and Decreased Cognition Decision Making: Medium Complexity Subjective Pt supine in bed upon arrival. Agreeable to PT session. Cleared by nursing Pain: Pt denies any current pain. Past Medical History: Medical History[1] Past Surgical History: Surgical History[2] Admission Diagnosis: Patient Active Problem List Diagnosis Date Noted Moderate malnutrition ([facility]) ([facility]) 12/14/2024 Fall, initial encounter 12/09/2024 Fall (on)(from) sidewalk curb, initial encounter 12/09/2024 End stage congestive heart failure ([facility]) 11/13/2024 Wound dehiscence 11/12/2024 Seizures ([facility]) 11/02/2024 ESRD (end stage renal disease) ([facility]) 11/02/2024 Dialysis patient ([facility]) 11/02/2024 Sepsis, due to unspecified organism, unspecified whether acute organ dysfunction present ([facility]) 10/22/2024 Edema of left lower extremity 10/05/2024 COVID-19 09/14/2024 Shortness of breath 03/02/2024 Pulmonary edema, acute ([facility]) 02/19/2024 Gastrointestinal hemorrhage, unspecified gastrointestinal hemorrhage type 01/19/2024 Hypertensive emergency 02/21/2022 Anemia 01/19/2024 Medical Precautions: Contact Proper PPE donned/doffed in accordance with facility standards. Fall Risk: Landers Fall Risk Score: 100 (Low Risk) Landers Fall Risk Score: 100 (High Risk) Precautions/Restrictions: Lines/Drains/Airways: PIV, hemodialysis cath double lumen Fall Precautions Family/Caregiver Present: none Overall Cognitive Status: Exceptions - Safety judgement: decreased awareness of need for assistance and decreased awareness of need for safety - Insights: decreased awareness of deficits - Initiation: requires cues for some - Sequencing: requires cues for some Overall Orientation Status: Oriented to Situation and Oriented to Person Vision: Not Assessed Hearing: normal Social/Functional History Patient admitted from SNF. Assistive Equipment: front wheeled walker Prior Level of Function Prior Level of ADL Function: Required Assist Prior Level of Mobility: Required Assist; Device: Front wheeled walker Prior Level of Transfers: Required Assist Objective Lower Extremity Assessment AROM: WFL PROM: WFL Strength: WFL 4-/5 Sensation: WFL Balance: Not assessed this session Bed Mobility: Supine to sit: Mod Assist HOB Elevated X1 EOB. Pt required assist with BLE management and hand held assist for trunk elevation. Pt able to scoot hips to EOB independently with increased time. Pt required SBA-CGA for seated balance. Transfers Sit to stand: Max Assist Stand to sit: Max Assist X2 EOB, x1 BSC. Pt required Max A for initiation and entirety of transition. Required cues for hand placement on the bed to push. Pt needed cues to initiate stand. Pt required increased time to complete task. Ambulation Ambulation 1 Assistive device(s) used: Front wheeled walker Assist level: Mod Assist Distance (ft): 3' + 12' Quality of gait: shuffling, narrow ASTON, slow kell, instability through all phases, flexed posture Pt required Mod A for general unsteadiness throughout. Pt had major LOB at chair. Required increased time to complete task. Cues for FWW navigation. Pt demonstrated slow kell and unsteadiness throughout. Outcome Measures AM-PAC How much HELP from another person do you currently need Turning from your back to your side while in a flat bed without using bedrails?: A Little Moving from lying on your back to sitting on the side of a flat bed without using bedrails?: A Lot Moving to and from a bed to a chair (including a wheelchair)?: A Lot Standing up from a chair using your arms (wheelchair or bedside chair)?: A Lot Walking in a hospital room?: A Lot Stair climbing assessed?: No AM-PAC Inpatient Mobility Raw Score (No Stairs) : 11 JH-HLM JH-HLM Scale: Walked 10 steps or more (i.e. walked to restroom) Plan Pt would benefit from skilled acute PT services to address Strengthening, ROM, Gait Training, Balance Training, Self-Care/ADL Training, Functional Mobility Training, Endurance Training, and Safety Education and Training. Frequency: 3x/weekfor 4 weeks Barriers: Impaired balance, Lower extremity weakness, Decreased endurance, Limited safety awareness, and Confusion Safety/Education Safety Safety Devices in place: All fall risk precautions in place, call light within reach, left in chair, chair alarm in place, and nurse notified Restraints: No Education Education Given To: patient Education Provided: PT Role, PT Goals, Gait Training, Plan of Care, Transfer Training, and Fall Prevention Education Education Method: Verbal Barriers to Learning: Cognition Education Outcome: Verbalized Understanding Goals Patient Stated Goal: To get stronger Encounter Problems Encounter Problems (Active) Balance Patient will maintain static standing balance for 3 minutes with SBA in order to demonstrate decreased risk of falling. Start: 12/19/24 Expected End: 01/18/25 Balance Patient will maintain static sitting balance for 3 minutes with SBA in order to demonstrate improved postural control and prepare for out of bed mobility. Start: 12/19/24 Expected End: 01/18/25 Mobility Patient will ambulate 20 feet with SBA and least restrictive device in order to improve safety and independence with mobility. Start: 12/19/24 Transfers Patient will perform bed mobility with SBA assist in order to improve independence and prepare for out of bed mobility. Start: 12/19/24 Expected End: 01/18/25 Patient will complete functional transfer with least restrictive device with min assist in order to prepare for ambulation. Start: 12/19/24 Expected End: 01/18/25 Therapy Time Individual Co-Treatment Co-Evaluation Time In 0800 Time Out 0830 Minutes 30 Timed Code Treatment Minutes: (1 eval, 1 gait) Lilliana Hinds Patient's Physical Therapy Plan of Care supervision is transferred to a [facility] Therapy Services Physical Therapist. Goals and/or treatment plan was established in collaboration with patient/family/other representatives. [1] Past Medical History: Diagnosis Date Chronic kidney disease (CKD) Hemodialysis patient (CMS/HCC) ([facility]) Wednesday, , Wednesday History of blood transfusion 02/27/2022 Hypertension Seizure ([facility]) Developed seizure-like activity on 02/24 during hospital admission [2] Past Surgical History: Procedure Laterality Date AV FISTULA PLACEMENT Left 08/07/2022 COLONOSCOPY N/A 01/25/2024 Performed by Chrissy Gilman MD at [facility] ENDOSCOPY IR CVC TUNNELED DIALYSIS CATHETER PLACEMENT 02/27/2022 IR CVC TUNNELED CATHETER PLACEMENT 02/27/2022 Candis Andrade MD [facility] SPECIAL PROCEDURES IR EMBOLIZATION 01/24/2024 IR EMBOLIZATION 01/24/2024 Jovan Glynn MD [facility] SPECIAL PROCEDURES VASCULAR SURGERY Left 11/02/2024 EXCISION OF LEFT UPPER EXTREMITY INFECTED GRAFT (JIM) VASCULAR SURGERY Left 11/05/2024 REVISION OR REPAIR, AV FISTULA (JIM) Cosigned by Guilherme Tavares PT at 12/19/2024 3:24 PM EDT Images from the original note were not included. Hospitalist Progress Note 12/19/2024 Subjective: Admit Date: 12/08/2024 PCP: Roxie Spain Room#: W6-633/W6-633 A Hospital Course: Per previous hospitalist's note: Apoorva is a 73 y.o. female with past medical history hx seizure ( 2021 a/w HTN encephalopathy) ,ESRD on HD ,AV graft placement (Dr. 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 difficile. She had a complicated year with admissions and infections Presented to ED this time after a mechanical fall while at dinner and L hip pain after the fall Normally she uses a wheelchair but she stood up to try to help her family member and fell backwards hitting her head on the pavement. She did not consciousness. In the emergency department, patient was hypertensive and mildly tachycardic but other vital signs were stable. Chemistry profile revealed hyponatremia at 135, hypokalemia at 2.6, hypochloremia at 94, creatinine of 3.05. Calcium 8.1. Alk phos 166, albumin 1.6, AST 46. She has a small leukocytosis with a WBC count of 11.2. Her hemoglobin is low at 6.9. She does have a mild left shift. -CT head/cervical spine completed shows endplate erosive changes at the C3/C4 intervertebral disc. No acute intracranial findings In the ER patient was given 40 mEq of potassium, vancomycin and cefepime for broad-spectrum coverage And admitted to observation for nephrology review regarding her electrolyte abnormalities, MRI of the cervical spine to rule out discitis prior to discharge, and blood transfusion. 12/09: No overnight issues. Going to MRI today with plan for HD afterwards . Unfortunately unable to tolerate d/t anxiety, but going to try again with ativan on board later today 12/10:Pain meds have been adjusted This am reports having pain everywhere Says wants to go home when she is ready On 12/11 daughter noted not answering questions and appearing uncomfortable. On 12/12 did not tolerate MRI. Patient continues to be confused and fall overnight. Sitter in room. ID and ortho and palliative care consulted. On 12/13 MRI with sedation ordered, tentatively scheduled for Wednesday but attempting to get scheduled sooner. On 12/14 attempting to get scheduled MRI sooner. Cefepime stopped and mentation improving. On 12/15 MRI planned for Wednesday. Patient with VM in place and soft bilateral wrist restraints. On 12/16 c/o abdominal discomfort and CT abd/pelvis showed likely rectus sheath hematoma. Patient was evaluated by surgery. On 12/17 patient with drop in hemoglobin requiring 3 units of PRBC. Seen by surgery and if hemodynamically unstable would prefer IR intervention before considering surgery as a last resort. Patient to have MRI with sedation cervical spine to check for diskitis and MRI brain for mental status change. Interval History: No overnight issues. Sleeping in chair. Open eyes to verbal stimuli Dose not want to answer questions Adult diet Regular 3 Day Weight Change: Unable to Calculate 24HR INTAKE/OUTPUT: Intake/Output Summary (Last 24 hours) at 12/19/2024 0820 Last data filed at 12/18/2024 1906 Gross per 24 hour Intake 469.06 ml Output -- Net 469.06 ml Past Medical History: Medical History[1] LABS: CBC: Recent Labs 12/17/24 0813 12/17/24 2221 12/18/24 0420 12/18/24 0907 12/18/24200512/19/24 0027 WBC 12.8* -- 19.3* -- -- 15.7* RBC 1.39* -- 2.92* -- -- 2.65* HGB 4.2* < > 9.0* 8.8* 7.9* 8.2* HCT 12.6* < > 25.3* 25.1* 22.6* 23.6* MCV 90.6 -- 86.6 -- -- 89.1 RDW 17.6* -- 14.9 -- -- 15.5* PLT 350 -- 327 -- -- 274 < > = values in this interval not displayed. BMP: Recent Labs 12/17/2482612/18/2441912/19/2426 NA 128* 128* 135* K 4.0 4.4 3.9 CL 95* 97* 102 CO2 25 BUN 14 18 11 CREATININE 2.91* 3.46* 2.25* GLUCOSE 110 89 73* CALCIUM 7.3* 7.3* 7.3* ANIONGAP 7 6 8 LIVER PROFILE: Recent Labs 12/17/2482612/18/2441912/19/2426 AST 41* 51* 49* ALT 8 6 <6 BILITOT 0.5 0.5 0.5 ALKPHOS 130 136 144 PROT 5.6* 5.5* 5.3* PT/INR: Recent Labs 12/17/24812 PROTIME 13.0* INR 1.2* CARDIAC ENZYMES: No results for input(s): TROPONINI in the last 72 hours. Procalcitonin: No results found for: PROCAL COVID-19 PCR: No results for input(s): COVID19 in the last 72 hours. Encounter Date: 12/08/24 ECG 12 lead Result Value Heart Rate 94 QRSD Interval 72 QT Interval 360 QTC Interval 451 P Ionia 61 QRS Ionia 20 T Wave Ionia 19 UT Interval 121 Impression Sinus rhythm Probable LVH with secondary repol abnrm Electronically Signed On 12-13-2024 19:24:44 EDT by Bhavik Estrada Transthoracic echocardiogram (TTE) complete with contrast, bubble, strain, and 3D PRN Result Date: 09/15/2024 Left Ventricle: Left ventricle size is normal. Normal wall thickness. Normal left ventricular systolic function. The EF by visual approximation is 60%. Global longitudinal strain is reduced with a value of -15.1%. Normal wall motion. Indeterminate diastolic function. Average E/e' ratio is 11.17. Right Ventricle: Right ventricle size is normal. Normal systolic function. Mitral Valve: Valve structure is normal. Mild to moderate (1-2+) regurgitation with an eccentrically directed jet and and may underestimate severity. No stenosis noted. Left Atrium: Left atrium is moderately dilated. LA Vol Index A/L is 43 mL/m2. Tricuspid Valve: Mild (1+) regurgitation. RVSP is 38 + RAP. @IMAGES@ Objective: Vitals: BP (!) 186/82 (BP Location: Left leg, Patient Position: Lying) Pulse 102 Temp 36.5 C (97.7 F) (Temporal) Resp 16 Ht 5' 4.57 (1.64 m) Wt 116 lb 4.8 oz (52.8 kg) SpO2 100% BMI 19.61 kg/m Pulse Ox: SpO2 Av.3 % Min: 97 % Max: 100 % Supplemental O2: O2 Flow Rate (L/min): 3.5 L/min General appearance: No apparent distress, not cooperative with exam HEENT: Eyes: No scleral icterus Oral: MM is semi-moist Cardiovascular: no abn heave of chest Respiratory: not labored Abdomen: not distended Musculoskeletal: Medications: Current Medications[2] Assessment Fall (Pt presents to ED for mechanical fall while at dinner. Pt family states pt fell backwards and hit her head and now has lump on head, denies LOC. Denies blood thinners.) Sepsis likely related to prior upper extremity graft infection -completed IV vanco and meropenem per ID Acute metabolic encephalopathy -related to sepsis and cefepime Acute on chronic anemia -s/p 3 units prbc, likely related to rectus sheath hematoma, seen by surgery, no surgical intervention, heparin subcutaneous on hold ESRD on hemodialysis -per nephrology Hypertensive urgency -scheduled amlodipine and PRN labetalol Seizure disorder Hypokalemia Hyponatremia Mechanical fall Medical History[3] Plan PT recommended SNF -am labs, replace lytes prn -Drug toxicity monitor: -increase activity -DVT prophylaxis: [] Lovenox [] Heparin [] SCDs [x] Encourage ambulation [] Already on Anticoagulation Advance Directive: DNR-CCA Family discussion: MDM COMPLEXITY --Moderate Anticipated Discharge - Date - 12/20 - Location - Skilled Facility - Pending the following - SNF choice Total time spent (which include face to face and non face to face encounters) : 36 minutes Mo Vieira MD Division of Hospitalist Medicine Inpatient Medical Services/[facility] [place] [1] Past Medical History: Diagnosis Date Chronic kidney disease (CKD) Hemodialysis patient (CMS/HCC) ([facility]) Wednesday, , Wednesday History of blood transfusion 02/27/2022 Hypertension Seizure (HCC) Developed seizure-like activity on 02/24 during hospital admission [2] Current Facility-Administered Medications: acetaminophen (Tylenol) tablet 650 mg, 650 mg, Oral, q4h PRN OR Acetaminophen (Tylenol) 650 MG/20.3ML solution 650 mg, 650 mg, Oral, q4h PRN OR acetaminophen (Tylenol) suppository 650 mg, 650 mg, Rectal, q4h PRN, Radha Reggiemin, DO acetaminophen (Tylenol) tablet 1,000 mg, 1,000 mg, Oral, q8h, Radha Paredesmin, DO, 1,000 mg at 12/14/24 0540 alteplase (Cathflo Activase) 2 mg in sterile water 2 mL injection, 2 mg, IntraCATHeter, PRN, Sean Castaneda MD, 2 mg at 12/13/242147 alteplase (Cathflo Activase) 2 mg in sterile water 2 mL injection, 2 mg, IntraCATHeter, PRN, Sean Castaneda MD, 2 mg at 12/13/242147 amLODIPine (Norvasc) tablet 10 mg, 10 mg, Oral, Daily, Radha Kevin, DO, 10 mg at 12/16/24901 atorvastatin (Lipitor) tablet 40 mg, 40 mg, Oral, Nightly, John Shepherd DO, 40 mg at 12/15/242055 B complex-vitamin C-folic acid (Nephrocaps) capsule 1 capsule, 1 capsule, Oral, Daily, John Shepherd DO, 1 capsule at 12/16/24901 cholecalciferol (Vitamin D-3) tablet 5,000 Units, 5,000 Units, Oral, Daily, John Shepherd DO, 5,000 Units at 12/16/24 0902 dextrose 5 % infusion, 100 mL/hr, IntraVENous, PRN, Ramonita Garnett NP, Stopped at 12/17/24 0500 dextrose 50 % solution 12.5 g, 12.5 g, IntraVENous, PRN, Ramonita Garnett NP, 12.5 g at 12/12/24 2230 glucagon (human recombinant) injection 1 mg, 1 mg, IntraMUSCular, PRN, Ramonita Garnett NP glucose oral gel 15 g, 15 g, Oral, PRN, Ramonita Garnett NP heparin injection 1,200-2,000 Units, 1,200-2,000 Units, IntraCATHeter, PRN, Jose G P Zidehsarai, DO, 2,100 Units at 12/14/24 1245 heparin injection 1,200-2,000 Units, 1,200-2,000 Units, IntraCATHeter, PRN, Jose G P Zidehsarai, DO, 2,100 Units at 12/14/24 1245 [Held by provider] heparin injection 5,000 Units, 5,000 Units, SubCUTAneous, 3 times per day, Leticia Leonardo, DO, 5,000 Units at 12/17/24 0537 HYDROmorphone (Dilaudid) injection 0.25 mg, 0.25 mg, IntraVENous, q4h PRN OR HYDROmorphone (Dilaudid) injection 0.5 mg, 0.5 mg, IntraVENous, q4h PRN, Chris Verdugo MD, 0.5 mg at 12/19/24 0031 labetalol (Normodyne,Trandate) injection 10 mg, 10 mg, IntraVENous, q6h PRN, Radha Kuzmin, DO, 10 mg at 12/18/24 1854 levETIRAcetam in sodium chloride (Keppra) IVPB 500 mg, 500 mg, IntraVENous, Daily, Jeane Carlson APRN - AGENCY TRAINER, Stopped at 12/18/24 1950 Lidocaine 4 % patch 1 patch, 1 patch, TransDERmal, Daily, Radha Devinzmin, DO melatonin tablet 5 mg, 5 mg, Oral, Nightly PRN, Eileen Dunacn APRN - AGENCY TRAINER, 5 mg at 12/15/242055 naloxone (Narcan) injection 0.4 mg, 0.4 mg, IntraVENous, q5 min PRN, Radha Devinzmin, DO ondansetron ODT (Zofran-ODT) disintegrating tablet 4 mg, 4 mg, Oral, q8h PRN OR ondansetron (Zofran) injection 4 mg, 4 mg, IntraVENous, q6h PRN, John Stuartz, DO oxyCODONE (Roxicodone) immediate release tablet 2.5 mg, 2.5 mg, Oral, q4h PRN, Radha Kuzmin, DO oxyCODONE (Roxicodone) immediate release tablet 5 mg, 5 mg, Oral, q4h PRN, Radha Kuzmin, DO, 5 mg at 12/11/24 2250 polyethylene glycol (PEG) 3350 (Miralax) packet 17 g, 17 g, Oral, Daily PRN, John Benitez Pentz, DO, 17 g at 12/10/24 1204 pregabalin (Lyrica) capsule 25 mg, 25 mg, Oral, BID PRN, Radha Kuzmin, DO, 25 mg at 12/11/24 1052 QUEtiapine (SEROquel) tablet 12.5 mg, 12.5 mg, Oral, BID PRN, Eileen Duncan, RADIATION ONCOLOGIST - AGENCY TRAINER sodium chloride 0.9 % infusion, 5-250 mL/hr, IntraVENous, PRN, John Stuartz, DO sodium chloride 0.9 % infusion, 250 mL/hr, IntraVENous, PRN, Ramonita Garnett NP sodium chloride 0.9 % infusion, 250 mL/hr, IntraVENous, PRN, Leticia Leonardo, DO sodium chloride 0.9% (NS) flush 5-40 mL, 5-40 mL, IntraVENous, q12h, John Stuartz, DO, 10 mL at 12/19/24 0509 sodium chloride 0.9% (NS) flush 5-40 mL, 5-40 mL, IntraVENous, PRN, John Benitez Pentz, DO stomahesive in petrolatum (ET Mix), , Topical, 3 times per day, PARK Colin CNP, Given at 12/18/242000 stomahesive in petrolatum (ET Mix), , Topical, PRN, PARK Colin CNP, Given at 12/13/241747 thiamine (Vitamin B1) 500 mg in sodium chloride 0.9 % 100 mL IVPB, 500 mg, IntraVENous, TID, Leticia Leonardo DO, Stopped at 12/18/242146 [3] Past Medical History: Diagnosis Date Chronic kidney disease (CKD) Hemodialysis patient (CMS/HCC) ([facility]) Wednesday, , Wednesday History of blood transfusion 02/27/2022 Hypertension Seizure ([facility]) Developed seizure-like activity on 02/24 during hospital admission Vancomycin therapy has been discontinued by Dr. Shamar More on 12/18/24. Thank you for the consult. Pharmacy signing off for vancomycin dosing. Jess Byrd RPh, Date: 12/18/24 Time: 3:54 PM CRISTO following for care progression. This patient was seen as a hospital courtesy for improved patient care and care progression. Reported by nursing patient refusing po medications. Changing Keppra po to IV to ensure no further missed doses until taking po routinely. Discussed with Dr Leonardo and pharmacist. No indication to renally dose in setting of HD. ID to see patient. Antibiotic clarification needed to determine the need for possible half-way IV. Thank you for allowing me to participate in the medical care of your patient. Work Categories (check all that apply) [] Discharge Planning [x] Care Coordination & Progression [] Nursing Function [x] Orders Placed [] Symptom Assessment [] Patient Experience [] Patient / Caregiver Conversation Nephrology Progress Note Following for esrd Pt seen in room NAD Confused Current Inpatient Medications: Reviewed on JUN. Vitals: BP 152/86 (BP Location: Right arm, Patient Position: Lying) Pulse 103 Temp 36.1 C (97 F) (Temporal) Resp 16 Ht 1.64 m (5' 4.57) Wt 52.8 kg (116 lb 4.8 oz) SpO2 98% BMI 19.61 kg/m BLOOD PRESSURE RANGE: Systolic (24hrs), Av , Min:145 , Max:167 ; Diastolic (24hrs), Av, Min:70, Max:94 24HR INTAKE/OUTPUT: Intake/Output Summary (Last 24 hours) at 12/18/2024 1500 Last data filed at 12/18/2024 1300 Gross per 24 hour Intake 831.06 ml Output -- Net 831.06 ml Physical exam: Constitutional: nad Skin: no rash, turgor wnl Heent: eomi, mmm Neck: no bruits or jvd noted Cardiovascular: Normal S1, S2 without m/r/g Respiratory: CTAB without w/r/r Abdomen: +bs, soft, nt, nd Ext: trace lower extremity edema Data: Labs: Recent Labs 12/17/24 0033 12/17/24 0813 12/17/24 2221 12/18/24 0420 12/18/24 0907 WBC 11.3* 12.8* -- 19.3* -- HGB 4.1* 4.2* 9.6* 9.0* 8.8* HCT 12.6* 12.6* 27.1* 25.3* 25.1* MCV 90.6 90.6 -- 86.6 -- PLT 322 350 -- 327 -- Recent Labs 12/16/24 1915 12/17/24 0827 12/18/24 0420 NA 128* 128* 128* K 4.3 4.0 4.4 CL 98 95* 97* CO2 25 26 25 GLUCOSE 146* 110 89 CALCIUM 7.4* 7.3* 7.3* BUN 10 14 18 CREATININE 2.66* 2.91* 3.46* Assessment and Plan: 74 yo female pmhx of ESRD on MWF HD presented after fall. Nephrology following for ESRD ESRD Continue MWF Access LCVC Volume Mild expansion on exam Bp stable Electrolytes Stabilization with HD MBD Phos 1.7 recheck 2.7 hold sevelemer Ca 8.0 Plan Volume status electrolytes cbc daily Continue to monitor BMP and electrolytes daily; replace K, Ca, Mg as needed. Transfuse PRBCs for Hgb < 7.0 g/dL; monitor for ongoing anemia. Continue renal diet and fluid restriction. Cont HD MWF Thank you for allowing me to care for pt. Feel free to reach out with any questions or concerns Sean Castaneda MD [facility] - Infectious Diseases Attending Progress Note Subjective: No acute events- HD ongoing and more alert again- answered appropriately, denied GALVIN< N/V weakness, or pain to previous AVG site. Afebrile. Objective: Vitals: Patient Vitals for the past 24 hrs: BP Temp Temp src Pulse Resp SpO2 12/18/24 1243 152/86 36.1 C (97 F) Temporal 103 16 98 % 12/18/24 1200 (!) 167/73 -- -- 97 16 98 % 12/18/24 1142 (!) 165/70 36.4 C (97.6 F) Tympanic 100 18 99 % 12/18/24 0745 (!) 164/86 36.7 C (98.1 F) Temporal 111 18 100 % 12/17/24 2102 160/94 36.8 C (98.2 F) Temporal 109 18 100 % 12/17/24 2031 (!) 167/94 36.8 C (98.2 F) Temporal 67 16 100 % 12/17/24 1755 156/85 36.9 C (98.4 F) Temporal 111 20 100 % 12/17/24 1736 158/83 37.1 C (98.8 F) -- 110 20 -- 12/17/24 1718 158/83 37.1 C (98.8 F) Temporal 110 20 100 % 12/17/24 1501 145/80 36.9 C (98.5 F) Temporal 96 18 100 % Physical Exam Vitals reviewed. Constitutional: General: She is not in acute distress. Appearance: Normal appearance. She is ill-appearing (chronically). Eyes: General: No scleral icterus. Extraocular Movements: Extraocular movements intact. Cardiovascular: Rate and Rhythm: Normal rate and regular rhythm. Heart sounds: Normal heart sounds. No murmur heard. Pulmonary: Effort: No respiratory distress. Breath sounds: Normal breath sounds. Musculoskeletal: General: Swelling (mild to ankles) present. Cervical back: Neck supple. No tenderness. Lymphadenopathy: Cervical: No cervical adenopathy. Skin: General: Skin is dry. Coloration: Skin is not jaundiced. Findings: No erythema or rash. Neurological: General: No focal deficit present. Mental Status: She is alert. Psychiatric: Mood and Affect: Mood normal. Thought Content: Thought content normal. Labs: Lab Results Component Value Date/Time NA 128 (L) 12/18/2024 0420 K 4.4 12/18/2024 042 CL 97 (L) 12/18/2024 042 CO2 25 12/18/2024 0420 BUN 18 12/18/2024 0420 CREATININE 3.46 (H) 12/18/2024 042 GLUCOSE 89 12/18/2024 042 CALCIUM 7.3 (L) 12/18/2024 042 PROT 5.5 (L) 12/18/2024 042 BILITOT 0.5 12/18/2024 042 ALKPHOS 136 12/18/2024 0420 AST 51 (H) 12/18/2024 042 ALT 6 12/18/2024 0420 PROCAL 68.03 (H) 10/05/2024 1419 PROCAL 19.25 (H) 09/15/2024 0308 PROCAL 76.25 (H) 09/14/2024 0541 Lab Results Component Value Date/Time WBC 19.3 (H) 12/18/2024 0420 HGB 8.8 (L) 12/18/2024 0907 HGB 9.3 12/11/2024 2030 HCT 25.1 (L) 12/18/2024 0907 PLT 327 12/18/2024 042 LYMPHOPCT 9.0 (L) 12/14/2024 0240 LYMPHOPCT 8 (L) 11/01/2024 0317 MONOPCT 7.6 12/14/2024 0240 MONOPCT 2 (L) 11/01/2024 0317 BASOPCT 0.8 12/14/2024 0240 BASOPCT 1 11/01/2024 0317 NEUTROABS 10.4 (H) 12/14/2024 0240 Micro: 12/12 BC: neg Lines: Vas cath PIV Radiography/Echo/Other: reviewed 12/18 MRI C spine: Impression: 1. At C3-4, severe disc height loss with endplate irregularity and mild endplate enhancement. Given the absence of discal fluid, prevertebral edema or paraspinal fluid collections, these findings are most likely degenerative in etiology. Infection is unlikely. 2. Moderate spinal stenosis and mild cord compression at C3-4, and mild-moderate spinal stenosis at C5-6. No cord signal abnormality. 3. Multilevel severe neural foraminal stenosis bilaterally. 4. Diffuse marrow signal abnormality secondary to renal osteodystrophy. 12/16 CTAP: Impression: 1. Large 15 cm indeterminate right rectus sheath collection extending to the right hemipelvis. Acute hemorrhage is not excluded. Correlate clinically. 2. Foci of gas in the left lower quadrant abdominal wall with subjacent intraperitoneal foci of gas, mostly likely related to subcutaneous injections. Perforated viscus is not excluded. Recommend correlation with serial abdominal exams. 3. Anasarca with moderate large bilateral pleural effusions and moderate volume ascites. 4. Additional chronic findings as above. CTR communication: Results of exam were conveyed to Dr. Desouza on 12/16/2024 at 5:42 PM Antimicrobials, Start/End Dates: Vancomycin Cefepime to Meropenem Impression: 74 F multiple comorbidities admitted with: Concern for discitis, possibly seeded from prior upper extremity graft infection - but imaging more likely DJD, no obvious infection. On empiric antibiotics. ESRD on HD MWF - possible uremia causing mental status change due to missed dialysis sessions (has had dialysis session 12/12 and 12/14) Hx infected hematoma - right thigh and anterior hip, apparently to rectus sheath as well. Hx Enterobacter cloacae bacteremia, Klebsiella pneumoniae, Klebsiella oxytoca, and Enterococcus casseliflavus- already treated, source believed controlled with AV graft excision from previous admission Hx C diff colitis -sable Hx left upper extremity growing Enterobacter cloacae Leukocytosis - improving Hx Afib Hx COVID infection No longer appearing encephalopathic, improving. Plan: Monitor off antibiotics. Cse d/w Primary Svc. Orthopedic Surgery Progress Note The following MRIs were ordered and subsequently completed. My interpretation is as follows: Cervical MRI (12/18/2024): Trace retrolisthesis of C3 on C4 contributing to mild-moderate central stenosis. Disc osteophyte complex appreciated about C5-C6 causing cord contact without obvious cord signal change.. Overall straightening of cervical lordosis. Enhanced osseous edema appreciated at inferior endplate of C3 and superior endplate of C4 that is dark on T1 imaging, bright on T1 postcontrast imaging and bright on T2 imaging. Fluid void defect appreciated about the cervicothoracic spine. Radiology reports to be reviewed. -No acute plan for OR. - Blood culture 12/12/2024 negative. -Tentatively plan on C3-C4 biopsy per IR pending Ortho attending discussion. Please keep patient n.p.o. and hold anticoagulation until definitive plan determined Orthopaedic surgery will follow. Please page skilled nursing professional orthopaedic resident for questions or concerns. Radiology reports reviewed. C3-4 findings felt to be degenerative, and not infectious. No plan for biopsy. Patient may follow up as needed with Dr. Benito for her neck pain. Additionally, several attempts have been made at spine exam, but these have not been successful given patient's ongoing altered mental status. Please page ortho resident skilled nursing professional if/when patient mentation improves so that a formal spine exam may be performed. Orthopaedic surgery will sign off. Please page skilled nursing professional orthopaedic resident for questions or concerns. Hospitalist Progress Note 12/18/2024 Subjective: Admit Date: 12/08/2024 PCP: Roxie Spain Room#: W3-644/[id number] A BRIEF HOSPITAL COURSE: Per previous hospitalist's note: Apoorva is a 73 y.o. female with past medical history hx seizure ( 2021 a/w HTN encephalopathy) ,ESRD on HD ,AV graft placement (Dr. 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 difficile. She had a complicated year with admissions and infections Presented to ED this time after a mechanical fall while at dinner and L hip pain after the fall Normally she uses a wheelchair but she stood up to try to help her family member and fell backwards hitting her head on the pavement. She did not consciousness. In the emergency department, patient was hypertensive and mildly tachycardic but other vital signs were stable. Chemistry profile revealed hyponatremia at 135, hypokalemia at 2.6, hypochloremia at 94, creatinine of 3.05. Calcium 8.1. Alk phos 166, albumin 1.6, AST 46. She has a small leukocytosis with a WBC count of 11.2. Her hemoglobin is low at 6.9. She does have a mild left shift. -CT head/cervical spine completed shows endplate erosive changes at the C3/C4 intervertebral disc. No acute intracranial findings In the ER patient was given 40 mEq of potassium, vancomycin and cefepime for broad-spectrum coverage And admitted to observation for nephrology review regarding her electrolyte abnormalities, MRI of the cervical spine to rule out discitis prior to discharge, and blood transfusion. 12/09: No overnight issues. Going to MRI today with plan for HD afterwards . Unfortunately unable to tolerate d/t anxiety, but going to try again with ativan on board later today 12/10:Pain meds have been adjusted This am reports having pain everywhere Says wants to go home when she is ready On 12/11 daughter noted not answering questions and appearing uncomfortable. On 12/12 did not tolerate MRI. Patient continues to be confused and fall overnight. Sitter in room. ID and ortho and palliative care consulted. On 12/13 MRI with sedation ordered, tentatively scheduled for Wednesday but attempting to get scheduled sooner. On 12/14 attempting to get scheduled MRI sooner. Cefepime stopped and mentation improving. On 12/15 MRI planned for Wednesday. Patient with VM in place and soft bilateral wrist restraints. On 12/16 c/o abdominal discomfort and CT abd/pelvis showed likely rectus sheath hematoma. Patient was evaluated by surgery. On 12/17 patient with drop in hemoglobin requiring 3 units of PRBC. Seen by surgery and if hemodynamically unstable would prefer IR intervention before considering surgery as a last resort. Patient to have MRI with sedation cervical spine to check for diskitis and MRI brain for mental status change. Interval History: Patient seen and examined. Chart reviewed. No overnight issues. She continues with left wrist soft restraints due to pulling at lines. Denies fever, chills, CP, dyspnea, abd pain, N/V. Case and plan discussed with patient and bedside nurse. All questions answered. NPO diet with enteral medications 24HR INTAKE/OUTPUT: Intake/Output Summary (Last 24 hours) at 12/18/2024 09 Last data filed at 12/17/2024 210 Gross per 24 hour Intake 1001.58 ml Output -- Net 1001.58 ml Past Medical History: Medical History[1] LABS: CBC: Recent Labs 12/17/24 0033 12/17/2481212/17/24 22212/18/24 04212/18/24 09 WBC 11.3* 12.8* -- 19.3* -- RBC 1.39* 1.39* -- 2.92* -- HGB 4.1* 4.2* 9.6* 9.0* 8.8* HCT 12.6* 12.6* 27.1* 25.3* 25.1* MCV 90.6 90.6 -- 86.6 -- RDW 17.6* 17.6* -- 14.9 -- PLT 322 350 -- 327 -- BMP: Recent Labs 12/16/24191412/17/2482612/18/24 042 NA 128* 128* 128* K 4.3 4.0 4.4 CL 98 95* 97* CO2 25 BUN 10 14 18 CREATININE 2.66* 2.91* 3.46* GLUCOSE 146* 110 89 CALCIUM 7.4* 7.3* 7.3* ANIONGAP 5 7 6 LIVER PROFILE: Recent Labs 12/16/24191412/17/2482612/18/24 042 AST 45* 41* 51* ALT 12 8 6 BILITOT 0.5 0.5 0.5 ALKPHOS 139 130 136 PROT 5.9* 5.6* 5.5* PT/INR: Recent Labs 12/17/24 0813 PROTIME 13.0* INR 1.2* CARDIAC ENZYMES: No results for input(s): TROPONINI in the last 72 hours. Procalcitonin: No results found for: PROCAL COVID-19 PCR: No results for input(s): COVID19 in the last 72 hours. Objective: Vitals: BP (!) 164/86 (BP Location: Right arm, Patient Position: Lying) Pulse 111 Temp 36.7 C (98.1 F) (Temporal) Resp 18 Ht 5' 4.57 (1.64 m) Wt 116 lb 4.8 oz (52.8 kg) SpO2 100% BMI 19.61 kg/m Pulse Ox: SpO2 Av % Min: 92 % Max: 100 % Supplemental O2: O2 Flow Rate (L/min): 3.5 L/min Physical Exam Constitutional: General: She is not in acute distress. Comments: +left wrist soft restraint in place HENT: Head: Normocephalic and atraumatic. Mouth/Throat: Mouth: Mucous membranes are moist. Eyes: Extraocular Movements: Extraocular movements intact. Conjunctiva/sclera: Conjunctivae normal. Cardiovascular: Rate and Rhythm: Normal rate and regular rhythm. Pulmonary: Effort: Pulmonary effort is normal. Breath sounds: Normal breath sounds. Abdominal: General: There is no distension. Palpations: Abdomen is soft. Tenderness: There is no abdominal tenderness. Musculoskeletal: General: No swelling. Skin: General: Skin is warm and dry. Neurological: General: No focal deficit present. Mental Status: She is alert. She is disoriented. Psychiatric: Mood and Affect: Mood normal. Medications: Scheduled PRN Scheduled Meds[2] PRN Meds[3] Continuous Continuous Meds[4] Assessment Plan Sepsis -Confusion may be related to cefepime and stopped -Continue IV Vanco and IV Meropenem -Recent fistula infection -CT head shows no acute process - ID following -MRI of the brain and C-spine show no diskitis and no acute intracranial process - ortho spine has seen, requesting to contact them when/if patient more cooperative with exam for more formal spinal exam Acute metabolic encephalopathy Mechanical fall -Seen by geriatrics -Soft restraints ordered due to patient pulling at lines -Video monitor in room - mentation overall improving Anemia-acute on chronic - bleeding likely into hematoma - transfused 3 units PRBCs on 12/17 - surgery aware - if hypotensive or other signs of decompensation txr to ICU, possible IR intervention will be needed ESRD on hemodialysis - Dialysis on // -Nephrology following Hypertensive urgency -As needed labetalol Seizure disorder -Continue home Keppra, switch to IV as refusing at times Left hip pain -X-rays with no acute abnormality Hypokalemia - resolved Hyponatremia - moderate, expect improvement with dialysis today Advance Directive: DNR-CCA Anticipated Discharge - Date - [facility] 12/19 Extended Emergency Contact Information Primary Emergency Contact: Deshawn Crystal Mobile Relation: Brother Technical Coordinator needed? No Secondary Emergency Contact: RuggieroEdward Mobile Relation: Significant Other Preferred language: Cambodian Technical Coordinator needed? No Leticia Leonardo DO Division of Hospitalist Medicine [facility] [1] Past Medical History: Diagnosis Date Chronic kidney disease (CKD) Hemodialysis patient (CMS/HCC) (HCC) Wednesday, , Wednesday History of blood transfusion 02/27/2022 Hypertension Seizure (HCC) Developed seizure-like activity on 02/24 during hospital admission [2] acetaminophen, 1,000 mg, Oral, q8h amLODIPine, 10 mg, Oral, Daily atorvastatin, 40 mg, Oral, Nightly B complex-vitamin C-folic acid, 1 capsule, Oral, Daily cholecalciferol, 5,000 Units, Oral, Daily [Held by provider] heparin, 5,000 Units, SubCUTAneous, 3 times per day levETIRAcetam, 500 mg, Oral, Daily Lidocaine, 1 patch, TransDERmal, Daily meropenem, 1,000 mg, IntraVENous, q12h sodium chloride 0.9%, 5-40 mL, IntraVENous, q12h stomahesive in petrolatum, , Topical, 3 times per day thiamine, 500 mg, IntraVENous, TID vancomycin (Vancocin) intermittent dosing (placeholder), , Other, RX Placeholder [3] PRN medications: acetaminophen OR acetaminophen OR acetaminophen, alteplase (Cathflo Activase) 2 mg in sterile water 2 mL injection, alteplase (Cathflo Activase) 2 mg in sterile water 2 mL injection, dextrose, dextrose, gadopiclenol, glucagon (rDNA), glucose, heparin, heparin, HYDROmorphone OR HYDROmorphone, labetalol, melatonin, naloxone, ondansetron ODT OR ondansetron, oxyCODONE, oxyCODONE, polyethylene glycol (PEG) 3350, pregabalin, QUEtiapine, sodium chloride, sodium chloride, sodium chloride, sodium chloride, sodium chloride 0.9%, stomahesive in petrolatum [4] Orthopedic surgery progress note Orthopedic surgery to bedside to attempt spine exam. Patient is currently A+ O x 1 (person). She is unable to follow commands appropriately or answer questions appropriately. Will plan to follow-up on MRI with sedation plan for today [facility] Geriatric Medicine Inpatient Consult Service Admission Date: 12/08/2024 Assessment Principal Problem: Fall, initial encounter Active Problems: Fall (on)(from) sidewalk curb, initial encounter Moderate malnutrition (CMS/HCC) (HCC) Plan Acute Encephalopathy --Improving, oriented to self and place at time of visit --Etiology unclear. Likely multifactorial related to concern for infection (WBC worsened today), pain, hospitalization, medication effects, electrolyte abnormalities, reduced PO intake --Continue to treat acute/underlying illness per primary service. Blood cultures with NGTD at 72 hours. ID adjusting antibiotics- cefepime discontinued and continued on Merrem --Repeat CT head 12/11 with no acute findings and after fall on 9/9 CT head with no acute intracranial abnormalities --MRI c-spine unable to tolerate. Agree with plan for sedated MRI c-spine and MRI brain- Scheduled for 12/18/24 --Recommend to trial out of restraints as able. Left wrist restraint in place. Visual monitor remains at bedside. -- TSH WNL, vitamin B12 robust, and ammonia WNL --Encourage PO intake, time up in chair, family visits, supervised ambulation, and sleep hygiene --If agitated, assess for and consider treating for pain --QTc= 451 ms on 12/11/24 --[place] PRN Seroquel for ONLY if danger to self/others/treatment --Would avoid benzodiazepines in this older adult patient as this drug class increases risk of falls and confusion along with other potentially negative side effects which would outweigh any theoretical benefit. --Continue melatonin PRN at HS for insomnia --Monitor for constipation/urinary retention - last BM 12/16, --Possible medication contributions: PRN narcotics ?cefepime-ID following and discontinued 12/13 Sertraline- discontinued as below Fall Declining functional status --Related to physical deconditioning, multiple hospitalizations, ESRD, seizure history --Unwitnessed fall on admission on 12/12/24 --Await PT/OT eval --Anticipate d/c to return to [facility] --Vitamin D 60 --Check orthostatic vital signs as able --Palliative care following for ongoing goals of care conversations --Diesel Dinkey Operator- supplements ordered BID Acute pain due to trauma -Management per primary service -Agree with scheduled tylenol (1000 mg q 8 hours) unless otherwise contraindicated. Recommend adjusting to 1000 mg PO TID -If narcotics are required recommend using lowest effective dose of oral narcotic as needed for breakthrough pain. -Continue lidocaine patch -Optimize nonpharmacologic pain treatment modalities. -Ensure that bowel regimen is in place while on narcotic regimen. Constipation -Chronic, recurrent problem -Management per primary service -Last documented BM 12/16 -Agree with MiraLAX as needed, goal is soft BM no less than every 3 days. Anxiety -Management per primary service -Sertraline discontinued. Initially started on admission and could possible contribute to encephalopathy. -Can continue pregabalin 25 mg daily PRN anxiety as this can help with pain/mood. Would not increase dose any higher due to CrCl Polypharmacy Medications reviewed with geriatric pharmacist with recommendations as below: -Levetiracetam level 11.3 -As a new medication with LEGAL TRANSCRIBER activity, sertraline may be a contributor to encephalopathy. Now discontinued - With poor PO intake and AMS, agree with changing PO thiamine to thiamine 500 mg in 100 mL NS or D5W IV three times daily for 2-7 days. Then would recommend thiamine 250 mg in 100 mL NS or D5W IV daily for 3-5 days, then return to PO regimen. Plan discussed with RN. Follow-up: will follow with you Subjective Chief Complaint: fall Geriatrics consulted for fall HPI- The patient is known to me. 74 y.o. year-old female admitted to acute care from [facility] for fall on 12/08. Patient reportedly fell backwards and hit the back of her head on pavement, no loss of consciousness. Head CT in the emergency department did not show any acute intracranial findings, concerning for discitis. Diagnosed with anemia and concern for discitis. Started on empiric antibiotics and MRI c-spine pending. Hospital stay complicated by delirium. Unable to obtain MRI after multiple attempts. Interval History: Remains on 6W. No acute overnight events. Seen by general surgery 12/16 for rectus sheath hematoma, recommending no acute surgical intervention. Recommended to trend H&H and hold heparin infusions. Received RBC infusion x3. Labs reviewed with sodium 128, BUN 18, creatinine 3.46, glucose 89, WBC 19.3, hemoglobin 9.0. Received PRN hydromorphone x4 last on 12/16. Refusing PO medications. Seen by general surgery today with no acute surgical intervention at this time. Patient awake and alert in bed with visual monitor at bedside. No family at beside. Patient oriented to self and place. Unable to recall events during or leading up to hospitalization. Reports pain everywhere this morning. Nods yes when asked if she slept overnight. Patient is able to squeeze hands to command. Spoke to RN with plan for sedated MRI this morning. Visual monitor and left soft wrist restraint remain in place Review of Systems Unable to perform ROS: Mental status change Musculoskeletal: Positive for myalgias. Psychiatric/Behavioral: Positive for confusion. Negative for sleep disturbance. --patient is a limited historian due to mentation Objective BP (!) 164/86 (BP Location: Right arm, Patient Position: Lying) Pulse 111 Temp 36.7 C (98.1 F) (Temporal) Resp 18 Ht 5' 4.57 (1.64 m) Wt 116 lb 4.8 oz (52.8 kg) SpO2 100% BMI 19.61 kg/m Intake/Output Summary (Last 24 hours) at 12/18/2024 1125 Last data filed at 12/17/2024 2102 Gross per 24 hour Intake 1001.58 ml Output -- Net 1001.58 ml Wt Readings from Last 3 Encounters: 12/11/24 116 lb 4.8 oz (52.8 kg) 12/06/24 103 lb (46.7 kg) 11/27/24 103 lb (46.7 kg) Current Medications[1] Physical Exam Vitals reviewed. Constitutional: No acute distress, well-nourished, mildly disheveled, ill-appearing Psych: Mood and affect Appropriate. Poor eye contact. Cardiovascular: Regular rate and rhythm, trace BLE edema Pulmonary/Chest: Clear to auscultation anterior only, normal respiratory effort, no coughing noted Abdominal: Soft, not distended, no tenderness to palpation, BS present, Neurological: alert, inattentive, speech is clear but vague , oriented x place and self, follows some simple commands, no tremor Skin: warm and dry, no visible rashes or wounds Labs and Imaging: Recent Results (from the past 24 hours) Prepare RBC: 3 Units Collection Time: 12/17/24 5:40 PM Result Value Ref Range PRODUCT CODE D7091Y69 Unit Number [id number] Unit ABO O Unit RH POS Crossmatch interpretation COMP Dispense Status Transfused Blood Expiration Date [id number] Product Blood Type 5100 Unit Volume 300 mL PRODUCT CODE Q1317R31 Unit Number [id number] Unit ABO O Unit RH POS Crossmatch interpretation COMP Dispense Status Transfused Blood Expiration Date [id number] Product Blood Type 5100 Unit Volume 300 mL PRODUCT CODE C0434S42 Unit Number [id number] Unit ABO O Unit RH POS Crossmatch interpretation COMP Dispense Status Transfused Blood Expiration Date [id number] Product Blood Type 5100 Unit Volume 300 mL POCT glucose meter Collection Time: 12/17/24 8:28 PM Result Value Ref Range Glucose 96 70 - 100 mg/dL Hemoglobin and hematocrit, blood Collection Time: 12/17/24 10:21 PM Result Value Ref Range Hemoglobin 9.6 (L) 11.7 - 16.0 g/dL Hematocrit 27.1 (L) 35.0 - 47.0 % POCT glucose meter Collection Time: 12/18/24 2:47 AM Result Value Ref Range Glucose 83 70 - 100 mg/dL CBC Collection Time: 12/18/24 4:20 AM Result Value Ref Range Auto WBC 19.3 (H) 3.6 - 10.7 10*3/uL RBC 2.92 (L) 3.80 - 5.20 10*6/uL Hemoglobin 9.0 (L) 11.7 - 16.0 g/dL Hematocrit 25.3 (L) 35.0 - 47.0 % MCV 86.6 77.0 - 99.0 fL MCH 30.8 26.0 - 34.0 pg MCHC 35.6 30.5 - 36.0 % RDW 14.9 11.5 - 15.0 % Platelets 327 140 - 440 10*3/uL MPV 10.7 9.0 - 12.7 fL Comprehensive metabolic panel Collection Time: 12/18/24 4:20 AM Result Value Ref Range SODIUM 128 (L) 136 - 145 mmol/L POTASSIUM 4.4 3.5 - 5.1 mmol/L CHLORIDE 97 (L) 98 - 107 mmol/L CARBON DIOXIDE 25 23 - 31 mmol/L ANION GAP 6 3 - 13 mmol/L UREA NITROGEN 18 9 - 23 mg/dL CREATININE 3.46 (H) 0.57 - 1.11 mg/dL GLUCOSE 89 82 - 115 mg/dL CALCIUM 7.3 (L) 8.8 - 10.0 mg/dL AST (SGOT) 51 (H) <34 U/L ALT 6 <30 U/L ALKALINE PHOSPHATASE 136 40 - 150 U/L ALBUMIN 1.3 (L) 3.4 - 4.8 g/dL BILIRUBIN, TOTAL 0.5 <1.2 mg/dL TOTAL PROTEIN 5.5 (L) 6.4 - 8.3 g/dL eGFR 13.4 (L) >60.0 mL/min/1.73m*2 POCT glucose meter Collection Time: 12/18/24 7:47 AM Result Value Ref Range Glucose 93 70 - 100 mg/dL Hemoglobin and hematocrit, blood Collection Time: 12/18/24 9:07 AM Result Value Ref Range Hemoglobin 8.8 (L) 11.7 - 16.0 g/dL Hematocrit 25.1 (L) 35.0 - 47.0 % Lab Results Component Value Date TSH 0.83 12/13/2024 Lab Results Component Value Date [id number] 1,419 (H) 12/13/2024 Lab Results Component Value Date VITD25 60 (H) 12/11/2024 Reviewed: allergies, imaging, active problem lists, medications, and labs [1] Current Facility-Administered Medications: acetaminophen (Tylenol) tablet 650 mg, 650 mg, Oral, q4h PRN OR Acetaminophen (Tylenol) 650 MG/20.3ML solution 650 mg, 650 mg, Oral, q4h PRN OR acetaminophen (Tylenol) suppository 650 mg, 650 mg, Rectal, q4h PRN, Radha Kevin DO acetaminophen (Tylenol) tablet 1,000 mg, 1,000 mg, Oral, q8h, Radha Kevin, DO, 1,000 mg at 12/14/24 0540 alteplase (Cathflo Activase) 2 mg in sterile water 2 mL injection, 2 mg, IntraCATHeter, PRN, Sean Castaneda MD, 2 mg at 12/13/242147 alteplase (Cathflo Activase) 2 mg in sterile water 2 mL injection, 2 mg, IntraCATHeter, PRN, Sean Castaneda MD, 2 mg at 12/13/242147 amLODIPine (Norvasc) tablet 10 mg, 10 mg, Oral, Daily, Radha Kevin DO, 10 mg at 12/16/24901 atorvastatin (Lipitor) tablet 40 mg, 40 mg, Oral, Nightly, John Shepherd DO, 40 mg at 12/15/242055 B complex-vitamin C-folic acid (Nephrocaps) capsule 1 capsule, 1 capsule, Oral, Daily, John Shepherd DO, 1 capsule at 12/16/24901 cholecalciferol (Vitamin D-3) tablet 5,000 Units, 5,000 Units, Oral, Daily, John Shepherd, DO, 5,000 Units at 12/16/24 0902 dextrose 5 % infusion, 100 mL/hr, IntraVENous, PRN, Ramonita Garnett NP, Stopped at 12/17/24 0500 dextrose 50 % solution 12.5 g, 12.5 g, IntraVENous, PRN, Ramonita Garnett NP, 12.5 g at 12/12/24 2230 glucagon (human recombinant) injection 1 mg, 1 mg, IntraMUSCular, PRN, Ramonita Garnett NP glucose oral gel 15 g, 15 g, Oral, PRN, Ramonita Garnett NP heparin injection 1,200-2,000 Units, 1,200-2,000 Units, IntraCATHeter, PRN, Jose G P Zidehsarai, DO, 2,100 Units at 12/14/24 1245 heparin injection 1,200-2,000 Units, 1,200-2,000 Units, IntraCATHeter, PRN, Jose G P Zidehsarai, DO, 2,100 Units at 12/14/24 1245 [Held by provider] heparin injection 5,000 Units, 5,000 Units, SubCUTAneous, 3 times per day, Leticia Leonardo DO, 5,000 Units at 12/17/24 0537 HYDROmorphone (Dilaudid) injection 0.25 mg, 0.25 mg, IntraVENous, q4h PRN OR HYDROmorphone (Dilaudid) injection 0.5 mg, 0.5 mg, IntraVENous, q4h PRN, Chris Verdugo MD, 0.5 mg at 12/18/24 09 labetalol (Normodyne,Trandate) injection 10 mg, 10 mg, IntraVENous, q6h PRN, Radha Kevin, DO, 10 mg at 12/15/242055 levETIRAcetam (Keppra) tablet 500 mg, 500 mg, Oral, Daily, John Shepherd, DO, 500 mg at 12/16/24 09 Lidocaine 4 % patch 1 patch, 1 patch, TransDERmal, Daily, Radha Kevin DO melatonin tablet 5 mg, 5 mg, Oral, Nightly PRN, Eileen Duncan, RADIATION ONCOLOGIST - AGENCY TRAINER, 5 mg at 12/15/242055 meropenem (Merrem) 1,000 mg in sodium chloride 0.9 % 100 mL IVPB, 1,000 mg, IntraVENous, q12h, Shamar More MD, Stopped at 12/18/24 0310 naloxone (Narcan) injection 0.4 mg, 0.4 mg, IntraVENous, q5 min PRN, Radhajacquelyn Paredesmin, DO ondansetron ODT (Zofran-ODT) disintegrating tablet 4 mg, 4 mg, Oral, q8h PRN OR ondansetron (Zofran) injection 4 mg, 4 mg, IntraVENous, q6h PRN, John Stuartz, DO oxyCODONE (Roxicodone) immediate release tablet 2.5 mg, 2.5 mg, Oral, q4h PRN, Radha Kuzmin, DO oxyCODONE (Roxicodone) immediate release tablet 5 mg, 5 mg, Oral, q4h PRN, Radha Kuzmin, DO, 5 mg at 12/11/24 2250 polyethylene glycol (PEG) 3350 (Miralax) packet 17 g, 17 g, Oral, Daily PRN, John Benitez Pentz, DO, 17 g at 12/10/24 1204 pregabalin (Lyrica) capsule 25 mg, 25 mg, Oral, BID PRN, Radha Kuzmin, DO, 25 mg at 12/11/24 1052 QUEtiapine (SEROquel) tablet 12.5 mg, 12.5 mg, Oral, BID PRN, Eileen Duncan, RADIATION ONCOLOGIST - AGENCY TRAINER sodium chloride 0.9 % infusion, 5-250 mL/hr, IntraVENous, PRN, John Benitez Pentz, DO sodium chloride 0.9 % infusion, 250 mL/hr, IntraVENous, PRN, Ramonita Garnett NP sodium chloride 0.9 % infusion, 250 mL/hr, IntraVENous, PRN, Leticia Leonardo, DO sodium chloride 0.9% (NS) flush 5-40 mL, 5-40 mL, IntraVENous, q12h, John Benitez Pentz, DO, 10 mL at 12/18/24 0628 sodium chloride 0.9% (NS) flush 5-40 mL, 5-40 mL, IntraVENous, PRN, John Shepherd DO stomahesive in petrolatum (ET Mix), , Topical, 3 times per day, PARK Colin CNP, Given at 12/18/24 0628 stomahesive in petrolatum (ET Mix), , Topical, PRN, PARK Colin CNP, Given at 12/13/24 1748 thiamine (Vitamin B1) 500 mg in sodium chloride 0.9 % 100 mL IVPB, 500 mg, IntraVENous, TID, Leticia Leonardo DO, Stopped at 12/18/24 1007 vancomycin (Vancocin) intermittent dosing (placeholder), , Other, RX Placeholder, Radha Kevin DO Facility-Administered Medications Ordered in Other Encounters: fentaNYL (Sublimaze) injection, , IntraVENous, PRN, Kanu Colmenares CRNA, 25 mcg at 12/18/24 1105 propofol (Diprivan) infusion, , IntraVENous, Continuous PRN, Kanu Colmenares CRNA, Last Rate: 19.008 mL/hr at 12/18/24 1105, 60 mcg/kg/min at 12/18/24 1105 [facility] PROGRESS NOTE Subjective Interval History: Apoorva Gonzalez is being followed for ESRD. Pt had huge drop in Hb and was found to have large rectus muscle sheath hematoma. Has received 3 units of blood. Laying flat, on RA, not in respiratory distress Medications Current Medications[1] Objective Physical Exam Constitutional: nad Skin: no rash, turgor wnl Heent: eomi, mmm Neck: no bruits or jvd noted Cardiovascular: Normal S1, S2 without m/r/g Respiratory: CTAB without w/r/r Abdomen: +bs, soft, nt, nd Ext: trace lower extremity edema Vital signs in last 24 hours: Temp: [36 C (96.8 F)-36.9 C (98.4 F)] 36.7 C (98 F) Heart Rate: [96-109] 97 Resp: [18-20] 18 BP: (123-164)/(68-85) 164/85 Intake/Output this shift: I/O this shift: In: 289.6 [Blood:289.6] Out: - Intake/Output last 3 shifts: I/O last 3 completed shifts: In: 200 (3.8 mL/kg) [I.V.:200 (3.8 mL/kg)] Out: 0 (0 mL/kg) Weight: 52.8 kg Labs: Results from last 7 days Lab Units 12/17/24 0813 WBC AUTO 10*3/uL 12.8* RBC AUTO 10*6/uL 1.39* HEMOGLOBIN g/dL 4.2* HEMATOCRIT % 12.6* Results from last 7 days Lab Units 12/17/24 0827 12/15/24 0802 12/14/24 0240 SODIUM mmol/L 128* < > 130* POTASSIUM mmol/L 4.0 < > 3.7 CHLORIDE mmol/L 95* < > 96* CO2 mmol/L 26 < > 25 BUN mg/dL 14 < > 26* CREATININE mg/dL 2.91* < > 4.37* CALCIUM mg/dL 7.3* < > 7.5* PHOSPHORUS mg/dL -- -- 2.3 BILIRUBIN TOTAL mg/dL 0.5 < > 0.4 ALT U/L 8 < > 13 AST U/L 41* < > 50* < > = values in this interval not displayed. No lab exists for component: FATCASTU Assessment/Plan Principal Problem: Fall, initial encounter Active Problems: Fall (on)(from) sidewalk curb, initial encounter Moderate malnutrition (CMS/HCC) (HCC) 74 yo female pmhx of ESRD on MWF HD presented after fall. Nephrology following for ESRD ESRD Continue MWF Access [facility] Had HD yesterday next tx Wednesday Volume Mild expansion on exam Bp stable In spite of large transfusion there is no respiratory compromise, so will delay HD till tomorrow Electrolytes Stabilization with HD MBD Phos 1.7 recheck 2.7 hold sevelemer Ca 8.0 Plan Volume status electrolytes cbc daily Continue to monitor BMP and electrolytes daily; replace K, Ca, Mg as needed. Transfuse PRBCs for Hgb < 7.0 g/dL; monitor for ongoing anemia. Continue renal diet and fluid restriction. Cont HD MWF Radha Meza MD 12/17/2024 2:10 PM [1] Current Facility-Administered Medications: acetaminophen (Tylenol) tablet 650 mg, 650 mg, Oral, q4h PRN OR Acetaminophen (Tylenol) 650 MG/20.3ML solution 650 mg, 650 mg, Oral, q4h PRN OR acetaminophen (Tylenol) suppository 650 mg, 650 mg, Rectal, q4h PRN, Radha Kevin DO acetaminophen (Tylenol) tablet 1,000 mg, 1,000 mg, Oral, q8h, Radha Kevin DO, 1,000 mg at 12/14/24 0540 alteplase (Cathflo Activase) 2 mg in sterile water 2 mL injection, 2 mg, IntraCATHeter, PRN, Sean Castaneda MD, 2 mg at 12/13/242147 alteplase (Cathflo Activase) 2 mg in sterile water 2 mL injection, 2 mg, IntraCATHeter, PRN, Sean Castaneda MD, 2 mg at 12/13/242147 amLODIPine (Norvasc) tablet 10 mg, 10 mg, Oral, Daily, Radha Kevin DO, 10 mg at 12/16/24901 atorvastatin (Lipitor) tablet 40 mg, 40 mg, Oral, Nightly, John Shepherd DO, 40 mg at 12/15/242055 B complex-vitamin C-folic acid (Nephrocaps) capsule 1 capsule, 1 capsule, Oral, Daily, John Shepherd DO, 1 capsule at 12/16/24901 cholecalciferol (Vitamin D-3) tablet 5,000 Units, 5,000 Units, Oral, Daily, John Shepherd DO, 5,000 Units at 12/16/24 09 dextrose 5 % infusion, 100 mL/hr, IntraVENous, PRN, Ramonita Garnett NP, Stopped at 12/17/24 0500 dextrose 50 % solution 12.5 g, 12.5 g, IntraVENous, PRN, Ramonita Garnett NP, 12.5 g at 12/12/24 2230 gadopiclenol (Vueway) injection 5 mL, 5 mL, IntraVENous, Once PRN, Radha Paredesmin, DO glucagon (human recombinant) injection 1 mg, 1 mg, IntraMUSCular, PRN, Ramonita Garnett NP glucose oral gel 15 g, 15 g, Oral, PRN, Ramonita Garnett NP heparin injection 1,200-2,000 Units, 1,200-2,000 Units, IntraCATHeter, PRN, Jose G P Zidehsarai, DO, 2,100 Units at 12/14/24 1245 heparin injection 1,200-2,000 Units, 1,200-2,000 Units, IntraCATHeter, PRN, Jose G P Zidehsarai, DO, 2,100 Units at 12/14/24 1245 [Held by provider] heparin injection 5,000 Units, 5,000 Units, SubCUTAneous, 3 times per day, Leticia Leonardo DO, 5,000 Units at 12/17/24 0537 HYDROmorphone (Dilaudid) injection 0.25 mg, 0.25 mg, IntraVENous, q4h PRN OR HYDROmorphone (Dilaudid) injection 0.5 mg, 0.5 mg, IntraVENous, q4h PRN, Chris Verdugo MD, 0.5 mg at 12/16/242236 labetalol (Normodyne,Trandate) injection 10 mg, 10 mg, IntraVENous, q6h PRN, Radha Paredesmin, DO, 10 mg at 12/15/242055 levETIRAcetam (Keppra) tablet 500 mg, 500 mg, Oral, Daily, John Benitez Pentz, DO, 500 mg at 12/16/24901 Lidocaine 4 % patch 1 patch, 1 patch, TransDERmal, Daily, Radha Paredesmin, DO melatonin tablet 5 mg, 5 mg, Oral, Nightly PRN, Eileen Duncan, RADIATION ONCOLOGIST - AGENCY TRAINER, 5 mg at 12/15/242055 meropenem (Merrem) 1,000 mg in sodium chloride 0.9 % 100 mL IVPB, 1,000 mg, IntraVENous, q12h, Shamar More MD, Last Rate: 33.3 mL/hr at 12/17/24 1229, 1,000 mg at 12/17/24 1229 naloxone (Narcan) injection 0.4 mg, 0.4 mg, IntraVENous, q5 min PRN, Radha Kuzmin, DO ondansetron ODT (Zofran-ODT) disintegrating tablet 4 mg, 4 mg, Oral, q8h PRN OR ondansetron (Zofran) injection 4 mg, 4 mg, IntraVENous, q6h PRN, John Benitez Pentz, DO oxyCODONE (Roxicodone) immediate release tablet 2.5 mg, 2.5 mg, Oral, q4h PRN, Radha Kuzmin, DO oxyCODONE (Roxicodone) immediate release tablet 5 mg, 5 mg, Oral, q4h PRN, Radha Kuzmin, DO, 5 mg at 12/11/24 2250 polyethylene glycol (PEG) 3350 (Miralax) packet 17 g, 17 g, Oral, Daily PRN, John Reynagaew Pentz, DO, 17 g at 12/10/24 1204 pregabalin (Lyrica) capsule 25 mg, 25 mg, Oral, BID PRN, Radha Kuzmin, DO, 25 mg at 12/11/24 1052 QUEtiapine (SEROquel) tablet 12.5 mg, 12.5 mg, Oral, BID PRN, Eileen Duncan, RADIATION ONCOLOGIST - AGENCY TRAINER sodium chloride 0.9 % infusion, 250 mL/hr, IntraVENous, PRN, John Benitez Pentz, DO sodium chloride 0.9 % infusion, 5-250 mL/hr, IntraVENous, PRN, John Benitez Pentz, DO sodium chloride 0.9 % infusion, 250 mL/hr, IntraVENous, PRN, Ramonita Garnett, MILLINERY DEPARTMENT MANAGER sodium chloride 0.9 % infusion, 250 mL/hr, IntraVENous, PRN, Leticia Leonardo, DO sodium chloride 0.9% (NS) flush 5-40 mL, 5-40 mL, IntraVENous, q12h, John Benitez Pentz, DO, 10 mL at 12/17/24 0445 sodium chloride 0.9% (NS) flush 5-40 mL, 5-40 mL, IntraVENous, PRN, John Shepherd DO stomahesive in petrolatum (ET Mix), , Topical, 3 times per day, PARK Colin CNP, Given at 12/17/24 0445 stomahesive in petrolatum (ET Mix), , Topical, PRN, PARK Colin CNP, Given at 12/13/24 1748 thiamine (Vitamin B1) 500 mg in sodium chloride 0.9 % 100 mL IVPB, 500 mg, IntraVENous, TID, Leticia Leonardo DO, Stopped at 12/17/24 0830 vancomycin (Vancocin) intermittent dosing (placeholder), , Other, RX Placeholder, Radha Kevin DO Hospitalist Progress Note 12/17/2024 Subjective: Admit Date: 12/08/2024 PCP: Roxie Spain Room#: [id number] A BRIEF HOSPITAL COURSE: Per previous hospitalist's note: Apoorva is a 73 y.o. female with past medical history hx seizure ( 2021 a/w HTN encephalopathy) ,ESRD on HD ,AV graft placement (Dr. 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 difficile. She had a complicated year with admissions and infections Presented to ED this time after a mechanical fall while at dinner and L hip pain after the fall Normally she uses a wheelchair but she stood up to try to help her family member and fell backwards hitting her head on the pavement. She did not consciousness. In the emergency department, patient was hypertensive and mildly tachycardic but other vital signs were stable. Chemistry profile revealed hyponatremia at 135, hypokalemia at 2.6, hypochloremia at 94, creatinine of 3.05. Calcium 8.1. Alk phos 166, albumin 1.6, AST 46. She has a small leukocytosis with a WBC count of 11.2. Her hemoglobin is low at 6.9. She does have a mild left shift. -CT head/cervical spine completed shows endplate erosive changes at the C3/C4 intervertebral disc. No acute intracranial findings In the ER patient was given 40 mEq of potassium, vancomycin and cefepime for broad-spectrum coverage And admitted to observation for nephrology review regarding her electrolyte abnormalities, MRI of the cervical spine to rule out discitis prior to discharge, and blood transfusion. 12/09: No overnight issues. Going to MRI today with plan for HD afterwards . Unfortunately unable to tolerate d/t anxiety, but going to try again with ativan on board later today 12/10:Pain meds have been adjusted This am reports having pain everywhere Says wants to go home when she is ready On 12/11 daughter noted not answering questions and appearing uncomfortable. On 12/12 did not tolerate MRI. Patient continues to be confused and fall overnight. Sitter in room. ID and ortho and palliative care consulted. On 12/13 MRI with sedation ordered, tentatively scheduled for Wednesday but attempting to get scheduled sooner. On 12/14 attempting to get scheduled MRI sooner. Cefepime stopped and mentation improving. On 12/15 MRI planned for Wednesday. Patient with VM in place and soft bilateral wrist restraints. On 12/16 c/o abdominal discomfort and CT abd/pelvis showed likely rectus sheath hematoma. Interval History: Patient seen and examined. Chart reviewed. Overnight drop in hgb and attempting recheck. Patient is in soft restraint. +confused but knows year, month, and at [facility]. +restless. Reports diffuse pain but otherwise does not answer ROS. Case and plan discussed with patient and bedside nurse. All questions answered. NPO diet with enteral medications 24HR INTAKE/OUTPUT: Intake/Output Summary (Last 24 hours) at 12/17/2024 0939 Last data filed at 12/17/2024 0605 Gross per 24 hour Intake -- Output 0 ml Net 0 ml Past Medical History: Medical History[1] LABS: CBC: Recent Labs 12/16/24 0020 12/17/24 0033 12/17/24 0813 WBC 10.3 11.3* 12.8* RBC 2.76* 1.39* 1.39* HGB 8.2* 4.1* 4.2* HCT 24.9* 12.6* 12.6* MCV 90.2 90.6 90.6 RDW 17.2* 17.6* 17.6* PLT 394 322 350 BMP: Recent Labs 12/16/241912/16/24191412/17/24826 NA 132* 128* 128* K 4.0 4.3 4.0 CL 99 98 95* CO2 BUN 7* 10 14 CREATININE 1.99* 2.66* 2.91* GLUCOSE 98 146* 110 CALCIUM 7.5* 7.4* 7.3* ANIONGAP 8 5 7 LIVER PROFILE: Recent Labs 12/16/241912/16/24191412/17/24826 AST 52* 45* 41* ALT 13 12 8 BILITOT 0.4 0.5 0.5 ALKPHOS 147 139 130 PROT 6.4 5.9* 5.6* PT/INR: Recent Labs 12/17/24812 PROTIME 13.0* INR 1.2* CARDIAC ENZYMES: No results for input(s): TROPONINI in the last 72 hours. Procalcitonin: No results found for: PROCAL COVID-19 PCR: No results for input(s): COVID19 in the last 72 hours. Objective: Vitals: BP 123/76 Pulse 109 Temp 36.1 C (96.9 F) (Temporal) Resp 18 Ht 5' 4.57 (1.64 m) Wt 116 lb 4.8 oz (52.8 kg) SpO2 100% BMI 19.61 kg/m Pulse Ox: SpO2 Av % Min: 92 % Max: 100 % Supplemental O2: O2 Flow Rate (L/min): 3.5 L/min Physical Exam Constitutional: General: She is not in acute distress. HENT: Head: Normocephalic and atraumatic. Mouth/Throat: Mouth: Mucous membranes are moist. Eyes: Extraocular Movements: Extraocular movements intact. Conjunctiva/sclera: Conjunctivae normal. Cardiovascular: Rate and Rhythm: Normal rate and regular rhythm. Pulmonary: Effort: Pulmonary effort is normal. Breath sounds: Normal breath sounds. Abdominal: General: There is distension. Palpations: Abdomen is soft. There is mass. Tenderness: There is no abdominal tenderness. Musculoskeletal: General: No swelling. Skin: General: Skin is warm and dry. Neurological: General: No focal deficit present. Mental Status: She is alert. She is disoriented. Psychiatric: Mood and Affect: Mood normal. Medications: Scheduled PRN Scheduled Meds[2] PRN Meds[3] Continuous Continuous Meds[4] Assessment Plan Sepsis -Confusion may be related to cefepime and stopped -Continue IV Vanco and IV Meropenem -Recent fistula infection -CT head shows no acute process - ID following -MRI of the brain and C-spine under sedation ordered, tentatively Wednesday at 10 AM - ortho spine following Acute metabolic encephalopathy Mechanical fall -Seen by geriatrics -Soft restraints ordered due to patient pulling at lines -Video monitor in room - mentation improving Anemia-acute on chronic - bleeding likely into hematoma - transfuse 3 units PRBCs - surgery aware - if hypotensive or other signs of decompensation txr to ICU, possible IR intervention will be needed ESRD on hemodialysis - Dialysis on // -Nephrology following Hypertensive urgency -As needed labetalol Seizure disorder -Continue home Keppra Left hip pain -X-rays with no acute abnormality Hypokalemia - resolved Hyponatremia - moderate, expect improvement with dialysis tomorrow Advance Directive: DNR-CCA Anticipated Discharge - Date - [facility] 12/19 Extended Emergency Contact Information Primary Emergency Contact: BonillaDeshawn Mobile Relation: Brother Technical Coordinator needed? No Secondary Emergency Contact: Edward Ruggiero Mobile Relation: Significant Other Preferred language: Cambodian Technical Coordinator needed? No Leticia Leonardo DO Division of Hospitalist Medicine [facility] [1] Past Medical History: Diagnosis Date Chronic kidney disease (CKD) Hemodialysis patient ([facility]/H[facility]) ([facility]) Wednesday, , Wednesday History of blood transfusion 02/27/2022 Hypertension Seizure ([facility]) Developed seizure-like activity on 02/24 during hospital admission [2] acetaminophen, 1,000 mg, Oral, q8h amLODIPine, 10 mg, Oral, Daily atorvastatin, 40 mg, Oral, Nightly B complex-vitamin C-folic acid, 1 capsule, Oral, Daily cholecalciferol, 5,000 Units, Oral, Daily [Held by provider] heparin, 5,000 Units, SubCUTAneous, 3 times per day levETIRAcetam, 500 mg, Oral, Daily Lidocaine, 1 patch, TransDERmal, Daily meropenem, 1,000 mg, IntraVENous, q12h sodium chloride 0.9%, 5-40 mL, IntraVENous, q12h stomahesive in petrolatum, , Topical, 3 times per day thiamine, 500 mg, IntraVENous, TID vancomycin (Vancocin) intermittent dosing (placeholder), , Other, RX Placeholder [3] PRN medications: acetaminophen OR acetaminophen OR acetaminophen, alteplase (Cathflo Activase) 2 mg in sterile water 2 mL injection, alteplase (Cathflo Activase) 2 mg in sterile water 2 mL injection, dextrose, dextrose, gadopiclenol, glucagon (rDNA), glucose, heparin, heparin, HYDROmorphone OR HYDROmorphone, labetalol, melatonin, naloxone, ondansetron ODT OR ondansetron, oxyCODONE, oxyCODONE, polyethylene glycol (PEG) 3350, pregabalin, QUEtiapine, sodium chloride, sodium chloride, sodium chloride, sodium chloride, sodium chloride 0.9%, stomahesive in petrolatum [4] Images from the original note were not included. Department of General Surgery Daily Progress Note ADMIT DATE: 12/08/2024 TODAY'S DATE: 12/17/2024 Subjective HPI: Apoorva Gonzalez is a 74 y.o. female with significant past medical history of ESRD on HD, AVG placement (2022, Dr. Fernandez), excision of infected graft and evacuation of hematoma, chronic anemia, HTN, seizure disorder, A-Fib (no anticoagulation noted on chart) who presents with c/f discitis and AMS. Surgery was consulted for evaluation of above. Patient unable to provide any history given encephalopathy. Fiance bedside explained that her mental status has gotten worse over the past couple days. He denies any known abdominal pain or changes to her belly. Per chart review, unclear etiology. Negative CTH. Attempted MRI but have not been able to obtain at this time. Discussing with RN team, the RN that is currently caring for her has had her for 3 days and states her belly has looked as it does for his entire time with no significant changes. He also states Heparin subq has been injected where the Band-Aid is in the LLQ of her abdomen. SUBJECTIVE: hgb noted to be 4.2 this am, she notes abdominal pain this morning but states its not significantly worse Interval history: 12/16: consulted Objective OBJECTIVE: VITALS: BP 123/76 Pulse 109 Temp 36.1 C (96.9 F) (Temporal) Resp 18 Ht 5' 4.57 (1.64 m) Wt 116 lb 4.8 oz (52.8 kg) SpO2 100% BMI 19.61 kg/m INTAKE/OUTPUT: Intake/Output Summary (Last 24 hours) at 12/17/2024926 Last data filed at 12/17/2024 06 Gross per 24 hour Intake -- Output 0 ml Net 0 ml I/O last 3 completed shifts: In: 200 (3.8 mL/kg) [I.V.:200 (3.8 mL/kg)] Out: 0 (0 mL/kg) Weight: 52.8 kg No intake/output data recorded. PHYSICAL EXAM: Gen: NAD, A&Ox3, pain well controlled Heart: RRR, well perfused Lungs: symmetric chest rise, normal work of breathing, breath sounds b/l Abd: soft, palpable RLQ hematoma tender to palpation no peritoneal signs Ext: no c/c/e no gross deformities Skin: warm, well perfused, no obvious rashes, cellulitis or gross discoloration LABS Results from last 7 days Lab Units 12/17/24 0813 12/17/24 0033 12/16/24 0020 WBC AUTO 10*3/uL 12.8* 11.3* 10.3 HEMOGLOBIN g/dL 4.2* 4.1* 8.2* HEMATOCRIT % 12.6* 12.6* 24.9* PLATELETS 10*3/uL 350 322 394 Results from last 7 days Lab Units 12/17/24 0827 12/16/24 1915 12/16/24 0020 SODIUM mmol/L 128* 128* 132* POTASSIUM mmol/L 4.0 4.3 4.0 CHLORIDE mmol/L 95* 98 99 CO2 mmol/L 25 BUN mg/dL 14 10 7* CREATININE mg/dL 2.91* 2.66* 1.99* GLUCOSE mg/dL 110 146* 98 CALCIUM mg/dL 7.3* 7.4* 7.5* Results from last 7 days Lab Units 12/17/24 0827 12/16/24 1915 12/16/24 0020 ALK PHOS U/L 130 139 147 BILIRUBIN TOTAL mg/dL 0.5 0.5 0.4 PROTEIN TOTAL g/dL 5.6* 5.9* 6.4 ALT U/L 8 12 13 AST U/L 41* 45* 52* LIPASE Date Value Ref Range Status 09/14/2024 10 <55 U/L Final 09/14/2024 11 <55 U/L Final Results from last 7 days Lab Units 12/17/24 0813 INR 1.2* Current Inpatient Medications Scheduled Meds:Scheduled Meds[1] Continuous Infusions:Continuous Meds[2] PRN Meds:PRN Meds[3] ASSESSMENT AND PLAN: This is a 74 y.o. female with likely rectus sheath hematoma for at least 3 days, and likely iatrogenic injury from subq heparin injections given extremely small habitus - recommend blood transfusions - ALFREDO - INR ordered - Q6HH - NPO - hold heparin infusions - If patient begins to become hypotensive would recommend IR evaluation for embolization, surgery last resort - patient may require MICU evlauation KEV URIAS MD General Surgery Resident 12/17/24 9:27 AM [1] acetaminophen, 1,000 mg, Oral, q8h amLODIPine, 10 mg, Oral, Daily atorvastatin, 40 mg, Oral, Nightly B complex-vitamin C-folic acid, 1 capsule, Oral, Daily cholecalciferol, 5,000 Units, Oral, Daily [Held by provider] heparin, 5,000 Units, SubCUTAneous, 3 times per day levETIRAcetam, 500 mg, Oral, Daily Lidocaine, 1 patch, TransDERmal, Daily meropenem, 1,000 mg, IntraVENous, q12h sodium chloride 0.9%, 5-40 mL, IntraVENous, q12h stomahesive in petrolatum, , Topical, 3 times per day thiamine, 500 mg, IntraVENous, TID vancomycin (Vancocin) intermittent dosing (placeholder), , Other, RX Placeholder [2] [3] PRN medications: acetaminophen OR acetaminophen OR acetaminophen, alteplase (Cathflo Activase) 2 mg in sterile water 2 mL injection, alteplase (Cathflo Activase) 2 mg in sterile water 2 mL injection, dextrose, dextrose, gadopiclenol, glucagon (rDNA), glucose, heparin, heparin, HYDROmorphone OR HYDROmorphone, labetalol, melatonin, naloxone, ondansetron ODT OR ondansetron, oxyCODONE, oxyCODONE, polyethylene glycol (PEG) 3350, pregabalin, QUEtiapine, sodium chloride, sodium chloride, sodium chloride, sodium chloride, sodium chloride 0.9%, stomahesive in petrolatum Images from the original note were not included. Pharmacy Managed Vancomycin Dosing Service Progress Note Consult Date: 12/17/24 Patient Name: Apoorva Gonzalez Allergies: Patient has no known allergies. Age: 74 y.o. Sex: female Ht: Height: 164 cm (5' 4.57) TBW: Weight: 52.8 kg (116 lb 4.8 oz) BMI: Body mass index is 19.61 kg/m . Lab Results Component Value Date CREATININE 2.66 (H) 12/16/2024 CREATININE 1.99 (H) 12/16/2024 BUN 10 12/16/2024 BUN 7 (L) 12/16/2024 WBC 12.8 (H) 12/17/2024 WBC 11.3 (H) 12/17/2024 DW: 52.8 kg Renal: [x]HD MWF Infectious Diagnosis: Bone & Joint Infection (target level = 15-20 mg/L) Next level due: 12/18 after HD Antimicrobials: Patient recently received an antibiotic (last 12 hours) Date/Time Action Medication Dose Rate 12/17/24 0038 New Bag meropenem (Merrem) 1,000 mg in sodium chloride 0.9 % 100 mL IVPB 1,000 mg 33.3 mL/hr Assessment/Plan: Intermittent vancomycin dosing (Pulse Dosing). Lab Results Component Value Date VANCOTROUGH 27.2 10/26/2024 VANCORANDOM 13.7 12/16/2024 Patient received vancomycin 750 mg x1 on 12/16 after dialysis on 12/15. Next scheduled dialysis session is Monday 12/18. Will order a level 4 hours post-HD and administer dose if needed based on level. Follow renal status closely. Orders placed. Thank you for this consult. Please page/call with questions. Date: 12/17/24 Time: 8:36 AM Mariposa Hidalgo PharmD (available on [employer]) [facility] PROGRESS NOTE Subjective Interval History: Apoorva Gonzalez is being followed for ESRD. Last HD yesterday. Doing OK today. Appears to be depressed, does not want to communicate, flat affect Medications Current Medications[1] Objective Physical Exam Constitutional: nad Skin: no rash, turgor wnl Heent: eomi, mmm Neck: no bruits or jvd noted Cardiovascular: Normal S1, S2 without m/r/g Respiratory: CTAB without w/r/r Abdomen: +bs, soft, nt, nd Ext: trace lower extremity edema Vital signs in last 24 hours: Temp: [36.4 C (97.6 F)-36.9 C (98.5 F)] 36.4 C (97.6 F) Heart Rate: [88-110] 110 Resp: [18-22] 19 BP: (123-211)/(75-110) 123/76 Intake/Output this shift: No intake/output data recorded. Intake/Output last 3 shifts: I/O last 3 completed shifts: In: 1631.6 (30.9 mL/kg) [I.V.:1606.6 (30.5 mL/kg); IV Piggyback:25] Out: 0 (0 mL/kg) Weight: 52.8 kg Labs: Results from last 7 days Lab Units 12/16/24 0020 WBC AUTO 10*3/uL 10.3 RBC AUTO 10*6/uL 2.76* HEMOGLOBIN g/dL 8.2* HEMATOCRIT % 24.9* Results from last 7 days Lab Units 12/16/24 0020 12/15/24 0802 12/14/24 0240 12/11/24 0225 09/07/25 0542 SODIUM mmol/L 132* < > 130* < > 135* POTASSIUM mmol/L 4.0 < > 3.7 < > 3.4* CHLORIDE mmol/L 99 < > 96* < > 99 CO2 mmol/L 25 < > 25 < > 26 BUN mg/dL 7* < > 26* < > 25* CREATININE mg/dL 1.99* < > 4.37* < > 4.24* CALCIUM mg/dL 7.5* < > 7.5* < > 7.5* PHOSPHORUS mg/dL -- -- 2.3 -- -- MAGNESIUM mg/dL -- -- -- -- 1.8 BILIRUBIN TOTAL mg/dL 0.4 < > 0.4 < > 0.4 ALT U/L 13 < > 13 < > 11 AST U/L 52* < > 50* < > 36* < > = values in this interval not displayed. No lab exists for component: FATCASTU Assessment/Plan Principal Problem: Fall, initial encounter Active Problems: Fall (on)(from) sidewalk curb, initial encounter Moderate malnutrition (CMS/HCC) (HCC) 74 yo female pmhx of ESRD on MWF HD presented after fall. Nephrology following for ESRD ESRD Continue MWF Access [facility] Had HD yesterday next tx Wednesday Volume Mild expansion on exam Bp stable Electrolytes Stabilization with HD MBD Phos 1.7 recheck 2.7 hold sevelemer Ca 8.0 Plan Volume status electrolytes cbc daily Continue to monitor BMP and electrolytes daily; replace K, Ca, Mg as needed. Transfuse PRBCs for Hgb < 7.0 g/dL; monitor for ongoing anemia. Continue renal diet and fluid restriction. Cont HD MWF Radha Meza MD 12/16/2024 3:54 PM [1] Current Facility-Administered Medications: acetaminophen (Tylenol) tablet 650 mg, 650 mg, Oral, q4h PRN OR Acetaminophen (Tylenol) 650 MG/20.3ML solution 650 mg, 650 mg, Oral, q4h PRN OR acetaminophen (Tylenol) suppository 650 mg, 650 mg, Rectal, q4h PRN, Radha Kuzmin, DO acetaminophen (Tylenol) tablet 1,000 mg, 1,000 mg, Oral, q8h, Radha Kuzmin, DO, 1,000 mg at 12/14/24 0540 alteplase (Cathflo Activase) 2 mg in sterile water 2 mL injection, 2 mg, IntraCATHeter, PRN, Sean Castaneda MD, 2 mg at 12/13/242147 alteplase (Cathflo Activase) 2 mg in sterile water 2 mL injection, 2 mg, IntraCATHeter, PRN, Sean Castaneda MD, 2 mg at 12/13/242147 amLODIPine (Norvasc) tablet 10 mg, 10 mg, Oral, Daily, Radha Paredesmin, DO, 10 mg at 12/16/24901 atorvastatin (Lipitor) tablet 40 mg, 40 mg, Oral, Nightly, John Shepherd DO, 40 mg at 12/15/242055 B complex-vitamin C-folic acid (Nephrocaps) capsule 1 capsule, 1 capsule, Oral, Daily, John Shepherd DO, 1 capsule at 12/16/24901 cholecalciferol (Vitamin D-3) tablet 5,000 Units, 5,000 Units, Oral, Daily, John Shepherd DO, 5,000 Units at 12/16/24 09 dextrose 5 % infusion, 100 mL/hr, IntraVENous, PRN, Ramonita Garnett NP, Last Rate: 100 mL/hr at 12/16/24 1438, 100 mL/hr at 12/16/24 1438 dextrose 50 % solution 12.5 g, 12.5 g, IntraVENous, PRN, Ramonita Garnett NP, 12.5 g at 12/12/24 2230 gadopiclenol (Vueway) injection 5 mL, 5 mL, IntraVENous, Once PRN, Radha Kevin DO glucagon (human recombinant) injection 1 mg, 1 mg, IntraMUSCular, PRN, Ramonita Garnett NP glucose oral gel 15 g, 15 g, Oral, PRN, Ramonita Garnett NP heparin injection 1,200-2,000 Units, 1,200-2,000 Units, IntraCATHeter, PRN, Jose G Ramirez DO, 2,100 Units at 12/14/24 1245 heparin injection 1,200-2,000 Units, 1,200-2,000 Units, IntraCATHeter, PRN, Jose G Alysha Ramirez, DO, 2,100 Units at 12/14/24 1245 heparin injection 5,000 Units, 5,000 Units, SubCUTAneous, 3 times per day, Leticia Leonardo, DO, 5,000 Units at 12/16/24 1302 HYDROmorphone (Dilaudid) injection 0.25 mg, 0.25 mg, IntraVENous, q4h PRN OR HYDROmorphone (Dilaudid) injection 0.5 mg, 0.5 mg, IntraVENous, q4h PRN, Chris Verdugo MD, 0.5 mg at 12/16/24 1444 labetalol (Normodyne,Trandate) injection 10 mg, 10 mg, IntraVENous, q6h PRN, Radha Kevin DO, 10 mg at 12/15/242055 levETIRAcetam (Keppra) tablet 500 mg, 500 mg, Oral, Daily, John Shepherd DO, 500 mg at 12/16/24901 Lidocaine 4 % patch 1 patch, 1 patch, TransDERmal, Daily, Radha Kevin DO melatonin tablet 5 mg, 5 mg, Oral, Nightly PRN, Eileen Duncan, RADIATION ONCOLOGIST - AGENCY TRAINER, 5 mg at 12/15/242055 meropenem (Merrem) 1,000 mg in sodium chloride 0.9 % 100 mL IVPB, 1,000 mg, IntraVENous, q12h, Shamar More MD, Last Rate: 33.3 mL/hr at 12/16/24 1256, 1,000 mg at 12/16/24 125 naloxone (Narcan) injection 0.4 mg, 0.4 mg, IntraVENous, q5 min PRN, Radha Kevin DO ondansetron ODT (Zofran-ODT) disintegrating tablet 4 mg, 4 mg, Oral, q8h PRN OR ondansetron (Zofran) injection 4 mg, 4 mg, IntraVENous, q6h PRN, John Shepherd DO oxyCODONE (Roxicodone) immediate release tablet 2.5 mg, 2.5 mg, Oral, q4h PRN, Radha Kevin DO oxyCODONE (Roxicodone) immediate release tablet 5 mg, 5 mg, Oral, q4h PRN, Radha Paredesmin, DO, 5 mg at 12/11/24 2250 polyethylene glycol (PEG) 3350 (Miralax) packet 17 g, 17 g, Oral, Daily PRN, John Benitez Pentz, DO, 17 g at 12/10/24 1204 pregabalin (Lyrica) capsule 25 mg, 25 mg, Oral, BID PRN, Radha Kevin, DO, 25 mg at 12/11/24 1052 QUEtiapine (SEROquel) tablet 12.5 mg, 12.5 mg, Oral, BID PRN, PARK Christiansen CNP sodium chloride 0.9 % infusion, 250 mL/hr, IntraVENous, PRN, John Stuartz, DO sodium chloride 0.9 % infusion, 5-250 mL/hr, IntraVENous, PRN, John Benitez Pentz, DO sodium chloride 0.9 % infusion, 250 mL/hr, IntraVENous, PRN, Ramonita Garnett, BRAYDEN sodium chloride 0.9% (NS) flush 5-40 mL, 5-40 mL, IntraVENous, q12h, John Shepherd DO, 10 mL at 12/16/24 0512 sodium chloride 0.9% (NS) flush 5-40 mL, 5-40 mL, IntraVENous, PRN, John Shepherd, DO stomahesive in petrolatum (ET Mix), , Topical, 3 times per day, PARK Colin CNP, Given at 12/16/24 1303 stomahesive in petrolatum (ET Mix), , Topical, PRN, PARK Colin CNP, Given at 12/13/24 1748 thiamine (Vitamin B1) 500 mg in sodium chloride 0.9 % 100 mL IVPB, 500 mg, IntraVENous, TID, Leticia Leonardo DO, Stopped at 12/16/24 1518 vancomycin (Vancocin) intermittent dosing (placeholder), , Other, RX Placeholder, Radha Kevin DO Images from the original note were not included. Pharmacy Managed Vancomycin Dosing Service Progress Note Consult Date: 12/16/24 Patient Name: Apoorva Gonzalez Allergies: Patient has no known allergies. Age: 74 y.o. Sex: female Ht: Height: 164 cm (5' 4.57) TBW: Weight: 52.8 kg (116 lb 4.8 oz) BMI: Body mass index is 19.61 kg/m . Lab Results Component Value Date CREATININE 1.99 (H) 12/16/2024 CREATININE 2.80 (H) 12/15/2024 BUN 7 (L) 12/16/2024 BUN 12 12/15/2024 WBC 10.3 12/16/2024 WBC 12.0 (H) 12/15/2024 DW: 52.8 kg Renal: [x]HD []CRRT []PD [] CrCl Infectious Diagnosis: Bone & Joint infection (target level = 15-20 mg/L) Next level due: After dialysis on Monday 12/18 Antimicrobials: Patient recently received an antibiotic (last 12 hours) Date/Time Action Medication Dose Rate 12/16/24 0009 New Bag meropenem (Merrem) 1,000 mg in sodium chloride 0.9 % 100 mL IVPB 1,000 mg 33.3 mL/hr Assessment/Plan: Intermittent vancomycin dosing (Pulse Dosing). Lab Results Component Value Date VANCOTROUGH 27.2 10/26/2024 VANCORANDOM 13.7 12/16/2024 Give Vancomycin 750 mg once based on patient age, weight, renal status and infectious diagnosis (14.2 mg/kg). Random trough level drawn this morning after dialysis yesterday was 13.7. HD scheduled MWF will need post-HD level on 12/18. Will adjust dose/frequency if needed according to level. Follow renal status closely. Orders placed. Thank you for this consult. Please page/call with questions. Date: 12/16/24 Time: 11:04 AM Mariposa Hidalgo PharmD (available on [employer]) Hospitalist Progress Note 12/16/2024 Subjective: Admit Date: 12/08/2024 PCP: Roxie Spain Room#: [id number] A BRIEF HOSPITAL COURSE: Per previous hospitalist's note: Apoorva is a 73 y.o. female with past medical history hx seizure ( 2021 a/w HTN encephalopathy) ,ESRD on HD ,AV graft placement (Dr. 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 difficile. She had a complicated year with admissions and infections Presented to ED this time after a mechanical fall while at dinner and L hip pain after the fall Normally she uses a wheelchair but she stood up to try to help her family member and fell backwards hitting her head on the pavement. She did not consciousness. In the emergency department, patient was hypertensive and mildly tachycardic but other vital signs were stable. Chemistry profile revealed hyponatremia at 135, hypokalemia at 2.6, hypochloremia at 94, creatinine of 3.05. Calcium 8.1. Alk phos 166, albumin 1.6, AST 46. She has a small leukocytosis with a WBC count of 11.2. Her hemoglobin is low at 6.9. She does have a mild left shift. -CT head/cervical spine completed shows endplate erosive changes at the C3/C4 intervertebral disc. No acute intracranial findings In the ER patient was given 40 mEq of potassium, vancomycin and cefepime for broad-spectrum coverage And admitted to observation for nephrology review regarding her electrolyte abnormalities, MRI of the cervical spine to rule out discitis prior to discharge, and blood transfusion. 12/09: No overnight issues. Going to MRI today with plan for HD afterwards . Unfortunately unable to tolerate d/t anxiety, but going to try again with ativan on board later today 12/10:Pain meds have been adjusted This am reports having pain everywhere Says wants to go home when she is ready On 12/11 daughter noted not answering questions and appearing uncomfortable. On 12/12 did not tolerate MRI. Patient continues to be confused and fall overnight. Sitter in room. ID and ortho and palliative care consulted. On 12/13 MRI with sedation ordered, tentatively scheduled for Wednesday but attempting to get scheduled sooner. On 12/14 attempting to get scheduled MRI sooner. Cefepime stopped and mentation improving. On 12/15 MRI planned for Wednesday. Patient with VM in place and soft bilateral wrist restraints. Interval History: Patient seen and examined. Chart reviewed. No overnight issues. She denies pain, dyspnea, N/V. +abdominal discomfort. Brother updated at bedside. Case and plan discussed with patient and bedside nurse. All questions answered. Adult diet Regular 24HR INTAKE/OUTPUT: Intake/Output Summary (Last 24 hours) at 12/16/2024 1046 Last data filed at 12/16/2024 0031 Gross per 24 hour Intake 200 ml Output 0 ml Net 200 ml Past Medical History: Medical History[1] LABS: CBC: Recent Labs 12/14/2423912/15/2480112/16/24 0020 WBC 13.1* 12.0* 10.3 RBC 2.56* 2.77* 2.76* HGB 7.5* 8.3* 8.2* HCT 23.6* 25.6* 24.9* MCV 92.2 92.4 90.2 RDW 17.2* 17.2* 17.2* PLT 305 363 394 BMP: Recent Labs 12/14/2423912/15/2480112/16/24 0020 NA 130* 134* 132* K 3.7 4.4 4.0 CL 96* 101 99 CO2 BUN 26* 12 7* CREATININE 4.37* 2.80* 1.99* GLUCOSE 95 65* 98 CALCIUM 7.5* 7.8* 7.5* ANIONGAP 9 9 8 LIVER PROFILE: Recent Labs 12/14/2423912/15/24 0802 12/16/24 0020 AST 50* 53* 52* ALT 13 14 13 BILITOT 0.4 0.4 0.4 ALKPHOS 131 146 147 PROT 6.2* 6.5 6.4 PT/INR: No results for input(s): PROTIME, INR in the last 72 hours. CARDIAC ENZYMES: No results for input(s): TROPONINI in the last 72 hours. Procalcitonin: No results found for: PROCAL COVID-19 PCR: No results for input(s): COVID19 in the last 72 hours. Objective: Vitals: BP 123/76 Pulse 110 Temp 36.4 C (97.6 F) (Temporal) Resp 19 Ht 5' 4.57 (1.64 m) Wt 116 lb 4.8 oz (52.8 kg) SpO2 100% BMI 19.61 kg/m Pulse Ox: SpO2 Av.5 % Min: 96 % Max: 100 % Supplemental O2: O2 Flow Rate (L/min): 3.5 L/min Physical Exam Constitutional: General: She is not in acute distress. Comments: Confused, bilateral soft wrist restraints HENT: Head: Normocephalic and atraumatic. Mouth/Throat: Mouth: Mucous membranes are moist. Eyes: Extraocular Movements: Extraocular movements intact. Conjunctiva/sclera: Conjunctivae normal. Cardiovascular: Rate and Rhythm: Normal rate and regular rhythm. Pulmonary: Effort: Pulmonary effort is normal. Breath sounds: Normal breath sounds. Abdominal: General: There is no distension. Palpations: Abdomen is soft. Tenderness: There is no abdominal tenderness. Musculoskeletal: General: No swelling. Skin: General: Skin is warm and dry. Neurological: General: No focal deficit present. Mental Status: She is alert. She is disoriented. Medications: Scheduled PRN Scheduled Meds[2] PRN Meds[3] Continuous Continuous Meds[4] Assessment Plan Sepsis -Confusion may be related to cefepime and stopped -Continue IV Vanco and IV Meropenem -Recent fistula infection -CT head shows no acute process - ID following -MRI of the brain and C-spine under sedation ordered, tentatively Wednesday at 10 AM - ortho spine following Acute metabolic encephalopathy Mechanical fall -Seen by geriatrics -Soft restraints ordered due to patient pulling at lines -Video monitor in room - mentation improving Anemia-acute on chronic - no signs of active bleeding ESRD on hemodialysis - Dialysis on /W/ -Nephrology following Hypertensive urgency -As needed labetalol Seizure disorder -Continue home Keppra Left hip pain -X-rays with no acute abnormality Hypokalemia - resolved Hyponatremia - mild Advance Directive: DNR-CCA Anticipated Discharge - Date - DC SNF 12/19 Extended Emergency Contact Information Primary Emergency Contact: Deshawn Crystal Mobile Relation: Brother Technical Coordinator needed? No Secondary Emergency Contact: Edward Ruggiero Mobile Relation: Significant Other Preferred language: Cambodian Technical Coordinator needed? No Leticia Leonardo DO Division of Hospitalist Medicine [facility] [1] Past Medical History: Diagnosis Date Chronic kidney disease (CKD) Hemodialysis patient (CMS/HCC) (HCC) Wednesday, , Wednesday History of blood transfusion 02/27/2022 Hypertension Seizure (HCC) Developed seizure-like activity on 02/24 during hospital admission [2] acetaminophen, 1,000 mg, Oral, q8h amLODIPine, 10 mg, Oral, Daily atorvastatin, 40 mg, Oral, Nightly B complex-vitamin C-folic acid, 1 capsule, Oral, Daily cholecalciferol, 5,000 Units, Oral, Daily heparin, 5,000 Units, SubCUTAneous, 3 times per day levETIRAcetam, 500 mg, Oral, Daily Lidocaine, 1 patch, TransDERmal, Daily meropenem, 1,000 mg, IntraVENous, q12h sodium chloride 0.9%, 5-40 mL, IntraVENous, q12h stomahesive in petrolatum, , Topical, 3 times per day thiamine, 500 mg, IntraVENous, TID vancomycin (Vancocin) intermittent dosing (placeholder), , Other, RX Placeholder [3] PRN medications: acetaminophen OR acetaminophen OR acetaminophen, alteplase (Cathflo Activase) 2 mg in sterile water 2 mL injection, alteplase (Cathflo Activase) 2 mg in sterile water 2 mL injection, dextrose, dextrose, gadopiclenol, glucagon (rDNA), glucose, heparin, heparin, HYDROmorphone OR HYDROmorphone, labetalol, melatonin, naloxone, ondansetron ODT OR ondansetron, oxyCODONE, oxyCODONE, polyethylene glycol (PEG) 3350, pregabalin, QUEtiapine, sodium chloride, sodium chloride, sodium chloride, sodium chloride 0.9%, stomahesive in petrolatum [4] Patient with outpatient appointment with vascular clinic on Wednesday Saw her at bedside today She is encephalopathic, in no acute distress Denies any complaints at this time but only oriented to self Vitals: 12/15/24 0926 BP: 149/84 Pulse: 86 Resp: Temp: SpO2: Left upper arm previous AVG site well-healing, c/d/I No discharge or ttp, palpable radial pulse Patient can follow up in vascular clinic as needed Will update Dr. Jim Stanley MD PGY3 General Surgery Nephrology Progress Note Following for esrd Pt seen in room NAD In restraints Confused Current Inpatient Medications: Reviewed on JUN. Vitals: BP 149/84 Pulse 86 Temp 37.1 C (98.8 F) (Temporal) Resp 18 Ht 1.64 m (5' 4.57) Wt 52.8 kg (116 lb 4.8 oz) SpO2 97% BMI 19.61 kg/m BLOOD PRESSURE RANGE: Systolic (24hrs), Av , Min:140 , Max:200 ; Diastolic (24hrs), Av, Min:77, Max:105 24HR INTAKE/OUTPUT: Intake/Output Summary (Last 24 hours) at 12/15/2024 1059 Last data filed at 12/15/2024 0309 Gross per 24 hour Intake 1661.64 ml Output -- Net 1661.64 ml Physical exam: Constitutional: nad Skin: no rash, turgor wnl Heent: eomi, mmm Neck: no bruits or jvd noted Cardiovascular: Normal S1, S2 without m/r/g Respiratory: CTAB without w/r/r Abdomen: +bs, soft, nt, nd Ext: trace lower extremity edema Data: Labs: Recent Labs 12/13/24 0045 12/14/24 0240 12/15/24 0802 WBC 16.5* 13.1* 12.0* HGB 8.0* 7.5* 8.3* HCT 25.3* 23.6* 25.6* MCV 92.0 92.2 92.4 PLT 312 305 363 Recent Labs 12/13/24 0045 12/14/24 0240 12/15/24 0802 NA 134* 130* 134* K 4.2 3.7 4.4 CL 100 96* 101 CO2 25 25 24 GLUCOSE 47* 95 65* CALCIUM 7.8* 7.5* 7.8* PHOS -- 2.3 -- BUN 22 26* 12 CREATININE 3.82* 4.37* 2.80* Assessment and Plan: 74 yo female pmhx of ESRD on MWF HD presented after fall. Nephrology following for ESRD ESRD Continue MWF Access [facility] Had HD yesterday next tx Volume Mild expansion on exam Bp stable Electrolytes Stabilization with HD MBD Phos 1.7 recheck 2.7 hold sevelemer Ca 8.0 Plan Volume status electrolytes cbc daily Continue to monitor BMP and electrolytes daily; replace K, Ca, Mg as needed. Transfuse PRBCs for Hgb < 7.0 g/dL; monitor for ongoing anemia. Continue renal diet and fluid restriction. Cont HD MWF Thank you for allowing me to care for pt. Feel free to reach out with any questions or concerns Pipe Soto MD [facility] [place] [phone] [facility] Geriatric Medicine Inpatient Consult Service Admission Date: 12/08/2024 Assessment Principal Problem: Fall, initial encounter Active Problems: Fall (on)(from) sidewalk curb, initial encounter Moderate malnutrition (CMS/HCC) (HCC) Plan Acute Encephalopathy --Waxing/waning vs slightly improving. Patient able to state first name at time of visit --Etiology unclear. Likely multifactorial related to concern for infection (WBC elevated but improved), pain, hospitalization, medication effects, electrolyte abnormalities, reduced PO intake --Continue to treat acute/underlying illness per primary service. Blood cultures with NGTD at 72 hours. ID adjusting antibiotics- cefepime discontinued and continued on Merrem --Repeat CT head 12/11 with no acute findings and after fall on 12/12 CT head with no acute intracranial abnormalities --MRI c-spine unable to tolerate. Agree with plan for sedated MRI c-spine and MRI brain --Recommend to trial out of restraints as able. Visual monitor remains at bedside. -- TSH WNL, vitamin B12 robust, and ammonia WNL --Encourage PO intake, time up in chair, family visits, supervised ambulation, and sleep hygiene --If agitated, assess for and consider treating for pain --QTc= 451 ms on 12/11/24 --[place] PRN Seroquel for ONLY if danger to self/others/treatment --Would avoid benzodiazepines in this older adult patient as this drug class increases risk of falls and confusion along with other potentially negative side effects which would outweigh any theoretical benefit. --Continue melatonin PRN at HS for insomnia --Monitor for constipation/urinary retention - last BM 12/14, --Possible medication contributions: PRN narcotics ?cefepime-ID following and discontinued 12/13 Sertraline- discontinued as below Fall Declining functional status --Related to physical deconditioning, multiple hospitalizations, ESRD, seizure history --Unwitnessed fall on admission on 12/12/24 --Await PT/OT eval --Anticipate d/c to return to [facility] --Vitamin D 60 --Check orthostatic vital signs as able --Palliative care following for ongoing goals of care conversations --Diesel Dinkey Operator- supplements ordered BID Acute pain due to trauma -Management per primary service -Agree with scheduled tylenol (1000 mg q 8 hours) unless otherwise contraindicated. Recommend adjusting to 1000 mg PO TID -If narcotics are required recommend using lowest effective dose of oral narcotic as needed for breakthrough pain. -Continue lidocaine patch -Optimize nonpharmacologic pain treatment modalities. -Ensure that bowel regimen is in place while on narcotic regimen. Constipation -Chronic, recurrent problem -Management per primary service -Last documented BM 12/15 -Agree with MiraLAX as needed, goal is soft BM no less than every 3 days. Anxiety -Management per primary service -Sertraline discontinued. Initially started on admission and could possible contribute to encephalopathy. -Can continue pregabalin 25 mg daily PRN anxiety as this can help with pain/mood. Would not increase dose any higher due to CrCl Polypharmacy Medications reviewed with geriatric pharmacist with recommendations as below: -Levetiracetam level pending. Concern that levetiracetam could be contributing to encephalopathy especially with intermittent missed hemodialysis sessions. -As a new medication with LEGAL TRANSCRIBER activity, sertraline may be a contributor to encephalopathy. Now discontinued - With poor PO intake and AMS, agree with changing PO thiamine to thiamine 500 mg in 100 mL NS or D5W IV three times daily for 2-7 days. Then would recommend thiamine 250 mg in 100 mL NS or D5W IV daily for 3-5 days, then return to PO regimen. Plan discussed with RN. Follow-up: will plan to follow up Wednesday, for acute geriatric issues over the weekend, please page Dr. Walker Subjective Chief Complaint: fall Geriatrics consulted for fall HPI- The patient is known to me. 74 y.o. year-old female admitted to acute care from [facility] for fall on 12/08. Patient reportedly fell backwards and hit the back of her head on pavement, no loss of consciousness. Head CT in the emergency department did not show any acute intracranial findings, concerning for discitis. Diagnosed with anemia and concern for discitis. Started on empiric antibiotics and MRI c-spine pending. Hospital stay complicated by delirium. Unable to obtain MRI after multiple attempts. Interval History: Remains on 6W. No acute overnight events. Labs reviewed with sodium 134, BUN 12, creatinine 2.80, glucose 65, WBC 12., hemoglobin 8.3. Refusing PO medications this morning. Received PRN hydromorphone x2 and PRN labetalol x1. Patient resting in bed and opens eyes to voice. Patient able to state first name and follow simple commands. Does not answer when asked if she has pain. Patient states have a good day. Spoke to RN with no reported agitation. Awaiting sedated MRI this afternoon. Review of Systems Unable to perform ROS: Mental status change Objective BP 149/84 Pulse 86 Temp 37.1 C (98.8 F) (Temporal) Resp 18 Ht 5' 4.57 (1.64 m) Wt 116 lb 4.8 oz (52.8 kg) SpO2 97% BMI 19.61 kg/m Intake/Output Summary (Last 24 hours) at 12/15/2024 1403 Last data filed at 12/15/2024 1248 Gross per 24 hour Intake 1461.64 ml Output -- Net 1461.64 ml Wt Readings from Last 3 Encounters: 12/11/24 116 lb 4.8 oz (52.8 kg) 12/06/24 103 lb (46.7 kg) 11/27/24 103 lb (46.7 kg) Current Medications[1] Physical Exam Vitals and nursing note reviewed. Constitutional: No acute distress, well-nourished, mildly disheveled, ill-appearing Psych: Mood and affect Lethargic. Fair eye contact. Cardiovascular: Regular rate and rhythm, + BLE edema Pulmonary/Chest: Clear to auscultation anterior only, normal respiratory effort, no coughing noted Abdominal: Soft, not distended, no tenderness to palpation, BS present, Neurological: somnolent but wakes to stimuli, inattentive, speech is unclear , oriented x self, follows some simple commands, Skin: warm and dry, no visible rashes or wounds Labs and Imaging: Recent Results (from the past 24 hours) POCT glucose meter Collection Time: 12/14/24 2:08 PM Result Value Ref Range Glucose 96 70 - 100 mg/dL POCT glucose meter Collection Time: 12/14/24 6:32 PM Result Value Ref Range Glucose 117 (H) 70 - 100 mg/dL POCT glucose meter Collection Time: 12/15/24 7:44 AM Result Value Ref Range Glucose 69 (L) 70 - 100 mg/dL CBC Collection Time: 12/15/24 8:02 AM Result Value Ref Range Auto WBC 12.0 (H) 3.6 - 10.7 10*3/uL RBC 2.77 (L) 3.80 - 5.20 10*6/uL Hemoglobin 8.3 (L) 11.7 - 16.0 g/dL Hematocrit 25.6 (L) 35.0 - 47.0 % MCV 92.4 77.0 - 99.0 fL MCH 30.0 26.0 - 34.0 pg MCHC 32.4 30.5 - 36.0 % RDW 17.2 (H) 11.5 - 15.0 % Platelets 363 140 - 440 10*3/uL MPV 10.5 9.0 - 12.7 fL Comprehensive metabolic panel Collection Time: 12/15/24 8:02 AM Result Value Ref Range SODIUM 134 (L) 136 - 145 mmol/L POTASSIUM 4.4 3.5 - 5.1 mmol/L CHLORIDE 101 98 - 107 mmol/L CARBON DIOXIDE 24 23 - 31 mmol/L ANION GAP 9 3 - 13 mmol/L UREA NITROGEN 12 9 - 23 mg/dL CREATININE 2.80 (H) 0.57 - 1.11 mg/dL GLUCOSE 65 (L) 82 - 115 mg/dL CALCIUM 7.8 (L) 8.8 - 10.0 mg/dL AST (SGOT) 53 (H) <34 U/L ALT 14 <30 U/L ALKALINE PHOSPHATASE 146 40 - 150 U/L ALBUMIN 1.5 (L) 3.4 - 4.8 g/dL BILIRUBIN, TOTAL 0.4 <1.2 mg/dL TOTAL PROTEIN 6.5 6.4 - 8.3 g/dL eGFR 17.2 (L) >60.0 mL/min/1.73m*2 Vancomycin, random Collection Time: 12/15/24 8:03 AM Result Value Ref Range VANCOMYCIN 19.0 ug/mL Lab Results Component Value Date TSH 0.83 12/13/2024 Lab Results Component Value Date [id number] 1,419 (H) 12/13/2024 Lab Results Component Value Date VITD25 60 (H) 12/11/2024 Reviewed: allergies, imaging, active problem lists, medications, and labs [1] Current Facility-Administered Medications: acetaminophen (Tylenol) tablet 650 mg, 650 mg, Oral, q4h PRN OR Acetaminophen (Tylenol) 650 MG/20.3ML solution 650 mg, 650 mg, Oral, q4h PRN OR acetaminophen (Tylenol) suppository 650 mg, 650 mg, Rectal, q4h PRN, Radha Kuzmin, DO acetaminophen (Tylenol) tablet 1,000 mg, 1,000 mg, Oral, q8h, Radha Kuzmin, DO, 1,000 mg at 12/14/24 0540 alteplase (Cathflo Activase) 2 mg in sterile water 2 mL injection, 2 mg, IntraCATHeter, PRN, Sean Castaneda MD, 2 mg at 12/13/24 2148 alteplase (Cathflo Activase) 2 mg in sterile water 2 mL injection, 2 mg, IntraCATHeter, PRN, Sean Castaneda MD, 2 mg at 12/13/24 2148 amLODIPine (Norvasc) tablet 10 mg, 10 mg, Oral, Daily, Radha Kevin DO, 10 mg at 12/14/24 0802 atorvastatin (Lipitor) tablet 40 mg, 40 mg, Oral, Nightly, John Shepherd, DO, 40 mg at 12/13/24 2202 B complex-vitamin C-folic acid (Nephrocaps) capsule 1 capsule, 1 capsule, Oral, Daily, John Shepherd DO, 1 capsule at 12/14/24 0801 cholecalciferol (Vitamin D-3) tablet 5,000 Units, 5,000 Units, Oral, Daily, John Shepherd DO, 5,000 Units at 12/14/24 0801 dextrose 5 % infusion, 100 mL/hr, IntraVENous, PRN, Ramonita Garnett NP, Last Rate: 100 mL/hr at 12/15/24 1248, 100 mL/hr at 12/15/24 1248 dextrose 50 % solution 12.5 g, 12.5 g, IntraVENous, PRN, Ramonita Garnett NP, 12.5 g at 12/12/24 2230 gadopiclenol (Vueway) injection 5 mL, 5 mL, IntraVENous, Once PRN, Radha Kevin DO glucagon (human recombinant) injection 1 mg, 1 mg, IntraMUSCular, PRN, Ramonita Garnett NP glucose oral gel 15 g, 15 g, Oral, PRN, Ramonita Garnett NP heparin injection 1,200-2,000 Units, 1,200-2,000 Units, IntraCATHeter, PRN, Jose G P Zidehsarai, DO, 2,100 Units at 12/14/24 1245 heparin injection 1,200-2,000 Units, 1,200-2,000 Units, IntraCATHeter, PRN, Jose G P Zidehsarai, DO, 2,100 Units at 12/14/24 1245 heparin injection 5,000 Units, 5,000 Units, SubCUTAneous, 3 times per day, Leticia Leonardo DO, 5,000 Units at 12/15/24 0525 HYDROmorphone (Dilaudid) injection 0.25 mg, 0.25 mg, IntraVENous, q4h PRN OR HYDROmorphone (Dilaudid) injection 0.5 mg, 0.5 mg, IntraVENous, q4h PRN, Chris Verdugo MD, 0.5 mg at 12/15/24 1227 labetalol (Normodyne,Trandate) injection 10 mg, 10 mg, IntraVENous, q6h PRN, Radha Kevin, DO, 10 mg at 12/15/24 0844 levETIRAcetam (Keppra) tablet 500 mg, 500 mg, Oral, Daily, John Stuartz, DO, 500 mg at 12/14/24 0801 Lidocaine 4 % patch 1 patch, 1 patch, TransDERmal, Daily, Radha Kevin, DO melatonin tablet 5 mg, 5 mg, Oral, Nightly PRN, Eileen Duncan, RADIATION ONCOLOGIST - AGENCY TRAINER, 5 mg at 12/13/24 220 meropenem (Merrem) 1,000 mg in sodium chloride 0.9 % 100 mL IVPB, 1,000 mg, IntraVENous, q12h, Shamar More MD, Last Rate: 33.3 mL/hr at 12/15/24 1212, 1,000 mg at 12/15/24 1212 naloxone (Narcan) injection 0.4 mg, 0.4 mg, IntraVENous, q5 min PRN, Radha Paredesmin, DO ondansetron ODT (Zofran-ODT) disintegrating tablet 4 mg, 4 mg, Oral, q8h PRN OR ondansetron (Zofran) injection 4 mg, 4 mg, IntraVENous, q6h PRN, John Stuartz, DO oxyCODONE (Roxicodone) immediate release tablet 2.5 mg, 2.5 mg, Oral, q4h PRN, Radha Beltranzmin, DO oxyCODONE (Roxicodone) immediate release tablet 5 mg, 5 mg, Oral, q4h PRN, Radha Paredesmin, DO, 5 mg at 12/11/24 2250 polyethylene glycol (PEG) 3350 (Miralax) packet 17 g, 17 g, Oral, Daily PRN, John Stuartz, DO, 17 g at 12/10/24 1204 pregabalin (Lyrica) capsule 25 mg, 25 mg, Oral, BID PRN, Radha Kevin DO, 25 mg at 12/11/24 1052 QUEtiapine (SEROquel) tablet 12.5 mg, 12.5 mg, Oral, BID PRN, PARK Christiansen CNP sodium chloride 0.9 % infusion, 250 mL/hr, IntraVENous, PRN, John Stuartz, DO sodium chloride 0.9 % infusion, 5-250 mL/hr, IntraVENous, PRN, John Benitez Pentz, DO sodium chloride 0.9 % infusion, 250 mL/hr, IntraVENous, PRN, Ramonita Garnett NP sodium chloride 0.9% (NS) flush 5-40 mL, 5-40 mL, IntraVENous, q12h, John Shepherd, DO, 10 mL at 12/15/24 0526 sodium chloride 0.9% (NS) flush 5-40 mL, 5-40 mL, IntraVENous, PRN, John Shepherd, DO stomahesive in petrolatum (ET Mix), , Topical, 3 times per day, PARK Colin CNP, Given at 12/15/24 0525 stomahesive in petrolatum (ET Mix), , Topical, PRN, PARK Colin CNP, Given at 12/13/24 1748 thiamine (Vitamin B1) 500 mg in sodium chloride 0.9 % 100 mL IVPB, 500 mg, IntraVENous, TID, Leticia Leonardo DO, Stopped at 12/15/24 1204 vancomycin (Vancocin) intermittent dosing (placeholder), , Other, RX Placeholder, Radha Kevin DO Images from the original note were not included. [facility] Wound Care Progress Note Apoorva Gonzalez AGE: 74 y.o. GENDER: female : 1950 Subjective: HISTORY of PRESENT ILLNESS HPI Apoorva Gonzalez is a 74 y.o. female who presents for a wound care follow up. HPI: Ms. Gonzalez is a 74 y.o. who presents to the emergency department for mechanical fall. Patient usually uses a wheelchair but she stood up to try to help a family member into her car. She then fell backwards hitting her head on the pavement. Fall was witnessed by family and there was no loss of consciousness. Patient is complaining of pain to the back of her head but says there has not been any bleeding. Admitted for fall and closed head injury. Wound Care consulted for left buttock. Patient resting in bed. Denies any needs. PAST MEDICAL HISTORY Medical History[1] PAST SURGICAL HISTORY Surgical History[2] FAMILY HISTORY Family History[3] SOCIAL HISTORY Social History[4] ALLERGIES Allergies[5] MEDICATIONS Medications Ordered Prior to Encounter[6] REVIEW OF SYSTEMS Pertinent items are noted in HPI. Objective: BP 149/84 Pulse 86 Temp 37.1 C (98.8 F) (Temporal) Resp 18 Ht 1.64 m (5' 4.57) Wt 52.8 kg (116 lb 4.8 oz) SpO2 97% BMI 19.61 kg/m PHYSICAL EXAM General appearance: in no apparent distress, non-toxic, alert, and cooperative Skin: warm and dry Pulmonary: Normal effort, no respiratory distress, no cyanosis Extremities: warm and dry Left buttock - 1.5 x 0.8 x 0.1cm - wound bed with large pink tissue and thin small slough, aminah wound tissue intact with scarring noted, small serosang drainage noted. Stable 12/13/24 LABS CBC: Lab Results Component Value Date WBC 12.0 (H) 12/15/2024 HGB 8.3 (L) 12/15/2024 HCT 25.6 (L) 12/15/2024 MCV 92.4 12/15/2024 PLT 363 12/15/2024 BMP: Lab Results Component Value Date NA 134 (L) 12/15/2024 K 4.4 12/15/2024 CL 101 12/15/2024 CO2 24 12/15/2024 PHOS 2.3 12/14/2024 BUN 12 12/15/2024 CREATININE 2.80 (H) 12/15/2024 PT/INR: No results found for: PROTIME, INR Prealbumin: No results found for: PREALBUMIN Albumin:No components found for: LABALBU Sed Rate:No results found for: SEDRATE Micro: No components found for: BC Assessment/Plan: Nursing staff to perform dressing change: Left buttock stage 3 pressure injury (POA): -cleanse with soap and water, apply ET mix TID and PRN, leave MACHINE GROUP LEADER -P500 bed -waffle chair cushion -Q2hr/PRN turns -glide sheets for T&R -continence checks Q1-2 Hrs/PRN Nutritional support Wound Care to follow Recommend to follow up at [facility] Outpatient wound care center after hospital discharge. Any questions or concerns please secure chat [facility] wound/ostomy. Thank you for the consult! I personally obtained the saavedra and critical portions of the history and physical exam. I reviewed the labs, imaging studies, and electronic medical record. I reviewed the chart documentation and discussed the patient with treatment team members. I have edited the note to reflect my clinical findings and my assessment and plan. Please note, the time of this note does not reflect the time I saw this patient today, but the time of this documentaton. Portions of this note including HPI, ROS, impression/plan, and examination may have been copied forward from admission to today as to provide important historical information essential in contributing to medical decision making. Documentation has been reviewed and edited as necessary to support clinical decision making for today's visit and to reflect my own independent evaluation of this patient. Decision making for today's visit and to reflect my own independent evaluation of this patient. [1] Past Medical History: Diagnosis Date Chronic kidney disease (CKD) Hemodialysis patient (CMS/HCC) (HCC) Wednesday, , Wednesday History of blood transfusion 02/27/2022 Hypertension Seizure (HCC) Developed seizure-like activity on 02/24 during hospital admission [2] Past Surgical History: Procedure Laterality Date AV FISTULA PLACEMENT Left 08/07/2022 COLONOSCOPY N/A 01/25/2024 Performed by Chrissy Gilman MD at [facility] ENDOSCOPY IR CVC TUNNELED DIALYSIS CATHETER PLACEMENT 02/27/2022 IR CVC TUNNELED CATHETER PLACEMENT 02/27/2022 Candis Andrade MD [facility] SPECIAL PROCEDURES IR EMBOLIZATION 01/24/2024 IR EMBOLIZATION 01/24/2024 Jovan Glynn MD [facility] SPECIAL PROCEDURES VASCULAR SURGERY Left 11/02/2024 EXCISION OF LEFT UPPER EXTREMITY INFECTED GRAFT (JIM) VASCULAR SURGERY Left 11/05/2024 REVISION OR REPAIR, AV FISTULA (JIM) [3] Family History Problem Relation Name Age of Onset Dementia Mother Stroke Father Prostate cancer Brother 69 Breast cancer Cousin 32 Stomach cancer Mother's Sister 70 [4] Social History Tobacco Use Smoking status: Never Smokeless tobacco: Never Vaping Use Vaping status: Never Used Substance Use Topics Alcohol use: Yes Alcohol/week: 2.0 standard drinks of alcohol Types: 2 Glasses of wine per week Comment: weekly Drug use: Never [5] No Known Allergies [6] No current facility-administered medications on file prior to encounter. Current Outpatient Medications on File Prior to Encounter Medication Sig Dispense Refill acetaminophen (Tylenol) 325 MG tablet Take 650 mg by mouth every 6 hours as needed. amLODIPine (Norvasc) 5 MG tablet Take 1 tablet (5 mg) by mouth daily. B complex-vitamin C-folic acid (Nephro-Coleen) 0.8 MG tablet Take 0.8 mg by mouth daily. cholecalciferol (Vitamin D-3) 125 MCG (5000 UT) capsule Take 5,000 Units by mouth daily. melatonin 5 MG tablet Take 1 tablet (5 mg) by mouth Nightly. sevelamer (Renagel) 800 MG tablet Take 800 mg by mouth 3 times daily (with meals). Swallow tablet whole; do not crush, break, or chew. Thiamine HCl (vitamin B-1) 250 MG tablet Take 250 mg by mouth daily. atorvastatin (Lipitor) 40 MG tablet Take 1 tablet (40 mg) by mouth Nightly. 30 tablet 11 levETIRAcetam (Keppra) 500 MG tablet Take 1 tablet (500 mg) by mouth daily. 30 tablet 1 magnesium hydroxide (Milk of Magnesia) 2400 MG/10ML suspension suspension Take 30 mL by mouth Daily as needed for constipation. (Patient not taking: Reported on 12/09/2024) Cosigned by Evan Culp DO at 12/18/2024 4:21 PM EDT Hospitalist Progress Note 12/15/2024 Subjective: Admit Date: 12/08/2024 PCP: Roxie Spain Room#: [id number] A BRIEF HOSPITAL COURSE: Per previous hospitalist's note: Apoorva is a 73 y.o. female with past medical history hx seizure ( 2021 a/w HTN encephalopathy) ,ESRD on HD ,AV graft placement (Dr. 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 difficile. She had a complicated year with admissions and infections Presented to ED this time after a mechanical fall while at dinner and L hip pain after the fall Normally she uses a wheelchair but she stood up to try to help her family member and fell backwards hitting her head on the pavement. She did not consciousness. In the emergency department, patient was hypertensive and mildly tachycardic but other vital signs were stable. Chemistry profile revealed hyponatremia at 135, hypokalemia at 2.6, hypochloremia at 94, creatinine of 3.05. Calcium 8.1. Alk phos 166, albumin 1.6, AST 46. She has a small leukocytosis with a WBC count of 11.2. Her hemoglobin is low at 6.9. She does have a mild left shift. -CT head/cervical spine completed shows endplate erosive changes at the C3/C4 intervertebral disc. No acute intracranial findings In the ER patient was given 40 mEq of potassium, vancomycin and cefepime for broad-spectrum coverage And admitted to observation for nephrology review regarding her electrolyte abnormalities, MRI of the cervical spine to rule out discitis prior to discharge, and blood transfusion. 12/09: No overnight issues. Going to MRI today with plan for HD afterwards . Unfortunately unable to tolerate d/t anxiety, but going to try again with ativan on board later today 12/10:Pain meds have been adjusted This am reports having pain everywhere Says wants to go home when she is ready On 12/11 daughter noted not answering questions and appearing uncomfortable. On 9/9 did not tolerate MRI. Patient continues to be confused and fall overnight. Sitter in room. ID and ortho and palliative care consulted. On 12/13 MRI with sedation ordered, tentatively scheduled for Wednesday but attempting to get scheduled sooner. On 12/14 attempting to get scheduled MRI sooner. Cefepime stopped and mentation improving. Interval History: Patient seen and examined. Chart reviewed. No overnight issues. In soft bilateral wrist restraints. Denies pain but otherwise does not answer questions. Case and plan discussed with patient and bedside nurse. All questions answered. NPO diet 24HR INTAKE/OUTPUT: Intake/Output Summary (Last 24 hours) at 12/15/2024 0755 Last data filed at 12/15/2024 0309 Gross per 24 hour Intake 1661.64 ml Output -- Net 1661.64 ml Past Medical History: Medical History[1] LABS: CBC: Recent Labs 12/13/24 0045 12/14/24 0240 WBC 16.5* 13.1* RBC 2.75* 2.56* HGB 8.0* 7.5* HCT 25.3* 23.6* MCV 92.0 92.2 RDW 17.6* 17.2* PLT 312 305 BMP: Recent Labs 12/13/24 0045 12/14/24 0240 NA 134* 130* K 4.2 3.7 CL 100 96* CO2 25 25 BUN 22 26* CREATININE 3.82* 4.37* GLUCOSE 47* 95 CALCIUM 7.8* 7.5* ANIONGAP 9 9 LIVER PROFILE: Recent Labs 12/14/24 0240 AST 50* ALT 13 BILITOT 0.4 ALKPHOS 131 PROT 6.2* PT/INR: No results for input(s): PROTIME, INR in the last 72 hours. CARDIAC ENZYMES: No results for input(s): TROPONINI in the last 72 hours. Procalcitonin: No results found for: PROCAL COVID-19 PCR: No results for input(s): COVID19 in the last 72 hours. Objective: Vitals: BP (!) 178/89 (BP Location: Right arm, Patient Position: Lying) Pulse 74 Temp 36.3 C (97.3 F) (Temporal) Resp 16 Ht 5' 4.57 (1.64 m) Wt 116 lb 4.8 oz (52.8 kg) SpO2 97% BMI 19.61 kg/m Pulse Ox: SpO2 Av.8 % Min: 95 % Max: 100 % Supplemental O2: O2 Flow Rate (L/min): 3.5 L/min Physical Exam Constitutional: General: She is not in acute distress. Comments: Thin, confused, in bilateral soft wrist restraints HENT: Head: Normocephalic and atraumatic. Mouth/Throat: Mouth: Mucous membranes are moist. Eyes: Extraocular Movements: Extraocular movements intact. Conjunctiva/sclera: Conjunctivae normal. Cardiovascular: Rate and Rhythm: Normal rate and regular rhythm. Pulmonary: Effort: Pulmonary effort is normal. Breath sounds: Normal breath sounds. Abdominal: General: There is no distension. Palpations: Abdomen is soft. Tenderness: There is no abdominal tenderness. Musculoskeletal: General: No swelling. Skin: General: Skin is warm and dry. Neurological: General: No focal deficit present. Mental Status: She is alert. She is disoriented. Medications: Scheduled PRN Scheduled Meds[2] PRN Meds[3] Continuous Continuous Meds[4] Assessment Plan Sepsis -Confusion may be related to cefepime and stopped -Continue IV Vanco and IV Meropenem -Recent fistula infection -CT head from yesterday shows no acute process - ID following -MRI of the brain and C-spine under sedation ordered, tentatively Wednesday at 10 AM - ortho spine following and okay for Wednesday Acute metabolic encephalopathy Mechanical fall -Seen by geriatrics -Soft restraints ordered due to patient pulling at lines -Video monitor in room Anemia-acute on chronic - no signs of active bleeding ESRD on hemodialysis - Dialysis on // -Nephrology following - fluid overload on CXR Hypertensive urgency -As needed labetalol Seizure disorder -Continue home Keppra Left hip pain -X-rays with no acute abnormality Hypokalemia - resolved Hyponatremia - mild Advance Directive: DNR-CCA Anticipated Discharge - Date - DC [facility] 12/18 Extended Emergency Contact Information Primary Emergency Contact: Deshawn Crystal Mobile Relation: Brother Technical Coordinator needed? No Secondary Emergency Contact: Edward Ruggiero Mobile Relation: Significant Other Preferred language: Cambodian Technical Coordinator needed? No Leticia Leonardo DO Division of Hospitalist Medicine [employer] [1] Past Medical History: Diagnosis Date Chronic kidney disease (CKD) Hemodialysis patient ([facility]) (HCC) Wednesday, , Wednesday History of blood transfusion 02/27/2022 Hypertension Seizure ([facility]) Developed seizure-like activity on 02/24 during hospital admission [2] acetaminophen, 1,000 mg, Oral, q8h amLODIPine, 10 mg, Oral, Daily atorvastatin, 40 mg, Oral, Nightly B complex-vitamin C-folic acid, 1 capsule, Oral, Daily cholecalciferol, 5,000 Units, Oral, Daily heparin, 5,000 Units, SubCUTAneous, 3 times per day levETIRAcetam, 500 mg, Oral, Daily Lidocaine, 1 patch, TransDERmal, Daily meropenem, 1,000 mg, IntraVENous, q12h sevelamer carbonate, 800 mg, Oral, TID WC sodium chloride 0.9%, 5-40 mL, IntraVENous, q12h stomahesive in petrolatum, , Topical, 3 times per day thiamine, 500 mg, IntraVENous, TID vancomycin (Vancocin) intermittent dosing (placeholder), , Other, RX Placeholder [3] PRN medications: acetaminophen OR acetaminophen OR acetaminophen, alteplase (Cathflo Activase) 2 mg in sterile water 2 mL injection, alteplase (Cathflo Activase) 2 mg in sterile water 2 mL injection, dextrose, dextrose, gadopiclenol, glucagon (rDNA), glucose, heparin, heparin, hydrALAZINE, HYDROmorphone OR HYDROmorphone, labetalol, melatonin, naloxone, ondansetron ODT OR ondansetron, oxyCODONE, oxyCODONE, polyethylene glycol (PEG) 3350, pregabalin, QUEtiapine, sodium chloride, sodium chloride, sodium chloride, sodium chloride 0.9%, stomahesive in petrolatum [4] Nephrology Progress Note Following for ESRD Pt seen in room Confused Had HD yesterday Current Inpatient Medications: Reviewed on JUN. Vitals: BP (!) 178/94 Pulse 105 Temp 36.8 C (98.2 F) Resp 16 Ht 1.64 m (5' 4.57) Wt 52.8 kg (116 lb 4.8 oz) SpO2 100% BMI 19.61 kg/m BLOOD PRESSURE RANGE: Systolic (24hrs), Av , Min:140 , Max:200 ; Diastolic (24hrs), Av, Min:70, Max:96 24HR INTAKE/OUTPUT: Intake/Output Summary (Last 24 hours) at 12/14/2024 1745 Last data filed at 12/14/2024 1250 Gross per 24 hour Intake 518.33 ml Output -- Net 518.33 ml Physical exam: Constitutional: ill appearing Skin: no rash, turgor wnl Heent: eomi, mmm Neck: no bruits or jvd noted Cardiovascular: Normal S1, S2 without m/r/g Respiratory: CTAB without w/r/r Abdomen: +bs, soft, nt, nd Ext: + lower extremity edema Data: Labs: Recent Labs 12/12/2410212/13/24 0045 12/14/24 0240 WBC 11.5* 16.5* 13.1* HGB 8.0* 8.0* 7.5* HCT 24.8* 25.3* 23.6* MCV 92.2 92.0 92.2 PLT 332 312 305 Recent Labs 12/12/2410212/13/24 0045 12/14/24 0240 NA 137 134* 130* K 4.1 4.2 3.7 CL 100 100 96* CO2 26 25 25 GLUCOSE 77* 47* 95 CALCIUM 7.8* 7.8* 7.5* PHOS -- -- 2.3 BUN 38* 22 26* CREATININE 5.60* 3.82* 4.37* Assessment and Plan: 74 yo female pmhx of ESRD on MWF HD presented after fall. Nephrology following for ESRD ESRD Continue MWF Volume + expansion on exam Bp stable Electrolytes Stabilization with HD MBD Phos 1.7 Ca 8.0 Not on binders ok to replace phos Plan Volume status electrolytes cbc daily Continue to monitor BMP and electrolytes daily; replace K, Ca, Mg as needed. Transfuse PRBCs for Hgb < 7.0 g/dL; monitor for ongoing anemia. Continue renal diet and fluid restriction. Cont HD MWF Thank you for allowing me to care for pt. Feel free to reach out with any questions or concerns Pipe Soto MD [facility] [place] [phone] Spiritual Care Note [facility] Palliative Care Patient Name:Apoorva Gonzalez Chief Complaint: Chief Complaint Patient presents with Fall Pt presents to ED for mechanical fall while at dinner. Pt family states pt fell backwards and hit her head and now has lump on head, denies LOC. Denies blood thinners. Reason for visit: Race Relations Professor Consult Services Provided To:patient and care team Background and visit note: Spiritual Care consulted. Conferred with patient's nurse. Patient observed resting in bed. No family present. Patient was awake but did not talk nor track. Provided supportive prayer. Left business card at bed. Call patient's brother and left a voicemail message informing him of visit and offering support. Is there spiritual distress? Unable to assess due to patient's condition Comment: Interventions: spiritual support provided. Care Plan: life review, find peace/acceptance, and connect to higher power. Follow Up: PRN. Debriefed: with patients nurse and with family. Rico Higgins 12/14/24 Images from the original note were not included. Palliative Progress Note Chief Complaint: Apoorva Gonzalez is a 74 y.o. female with chief complaint of fall. Palliative Care provider will follow-up on 12/18. Please reach out to skilled nursing professional provider if more urgent follow up is necessary. Assessment/Plan Goals of care - Apoorva Gonzalez lacks capacity for medical decision-making due to encephalopathy. - legal surrogate decision maker is HCPOA, Brother Deshawn Crystal ( ) Alternate is s/o Edward Ruggiero [phone]) -goals of care include: 1) Goal is to continue current management for now. Discussed with Deshawn today as he did come to visit. He states he is interested in continuing current workup, however he recognizes that he isn't doing well. He states he was told last time she was in the hospital that often with patients her age, and her co morbidities, that they will get repeated infection, and eventually one of them will lead to their . He expresses concern that this may be what is happening. He states he did talk to someone in the past about hospice, and states that he doesn't want her to suffer, and is thinking about it. Right now, he wants to continue with current plan, but knows that if she gets to a point where she is not getting any better, that he may want to shift to comfort measures. - expressed that I will follow up with him on Wednesday, 12/18, but that our team is also here throughout weekend, and if he is needing sooner follow up, to have the nurse reach out to our team for support. Acute Encephalopathy - unclear etiology, likely multifactorial - infection, medication side effect, uremia, pain - appears to be worsening each day - geriatrics following - does not appear to be related to opioids Sepsis - BCX neg to date - WBC increased today - ID consulted - abx per ID and primary Mechanical fall Debility - normally in wheelchair, was standing to help someone and fell backwards - PT/OT Pain - pain appears to be s/p fall, although patient encephalopathic and unable to participate - continue scheduled tylenol - continue lidocaine patch - oxycodone 2.5-5 mg q4 prn - patient with slight improvement of 0.25mg dilaudid per nursing, but still continues to moan. Will increase to dilaudid 0.5 mg q4 hrs prn and monitor response. C3/C4 erosive changes - attempting to get MRI c-spine to rule out discitis, has been unable to obtain so far due to pain/anxiety - abx per primary team - ortho consulted as well, awaiting MRI results - MRI will be completed 12/15 under anesthesia History of Constipation - last large BM 12/13 - normally has only every couple of days at home - continue bowel regimen ESRD on HD - Wed History of seizures - remains on home [facility] Palliative Care Encounter -Code Status: DNR-CCA - will continue to follow for ongoing monitoring of progression of encephalopathy as well as for appropriateness for hospice care due to ESRD, sepsis, encephalopathy - was residing at [place] [facility] Time Stamp: Total of 50 minutes spent on this encounter including Chart review, Patient visit and exam, Documentation in EHR, Care coordination, Communicating with primary attending or other consultants, Obtaining and/or reviewing separately obtained history, and Counseling and educating patient/family/caregiver. Discharge planning: Not ready for discharge due to ongoing medical work-up/critical illness Patient meets criteria for general inpatient hospice care: No Palliative Care IDT members involved: None Discussed the plan of care with the other interdisciplinary team (IDT) members of the Palliative Care and Hospice teams and Family. Subjective: Subjective/Events Apoorva Gonzalez is a 74 y.o. female with history of ESRD on HD. 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 Developed hematoma after that and returned to OR 11/05. Presented after a fall at dinner. Her CT head showed no acute intracranial process, CT neck did show errosive changes of C3/4. Found to have low potassium, admitted for monitoring. Plan also to get MRI c-spine to rule out discitis. She has been unable to get this thus far due to anxiety and has had worsening alteration in mentation. Palliative Care consulted for goals of care. 12/14/2024 - Patient is calmer today, still moaning out. Does not converse. Discussed with Deshawn today as he did come to visit. He states he is interested in continuing current workup, however he recognizes that he isn't doing well. He states he was told last time she was in the hospital that often with patients her age, and her co morbidities, that they will get repeated infection, and eventually one of them will lead to their . He expresses concern that this may be what is happening. He states he did talk to someone in the past about hospice, and states that he doesn't want her to suffer, and is thinking about it. Right now, he wants to continue with current plan, but knows that if she gets to a point where she is not getting any better, that he may want to shift to comfort measures. Pain Assessment Unable due to Encephalopathy Palliative Care Assessments: Goals of care: Continue Current Management Advanced Directives: Health Care Power of Rotary Helper, DNR Functional Assessment: PPS 40% mainly in bed; can't do any work/extensive disease; mainly assistance; normal or reduced intake; full or drowsy or confusion Prognosis: uncertain at this time Spiritual Assessment: No spiritual distress identified Bereavement and Grief: To Be Determined PDMP/OARRS Reviewed: Yes-reviewed Social history: Marital status: Children: unknown Living status: [facility] Work history: unknown [place] status: No Lutheran: None ROS: See palliative care ROS/ESAS below; Detail ROS unable to be obtained due to patient's mental status Chester Symptom Assessment Score Chester Score Pain Score (if non-verbal, add .FLACC below) 3 Tiredness Score 0 Nausea Score 0 Depression Score 0 Anxiety Score 4 Drowsiness Score 0 Anorexia Score (0= eating well, 10= not eating) 0 Wellbeing Score (10= worst sense of well-being) 0 Constipation 0 Dyspnea Score (0= no shortness of breath) 0 FLACC Scale (For Pain Assessment of the Non-Verbal Patient) Face: 1- occasional grimace or frown Legs: 1- uneasy, restless, tense Activity: 0-lying quietly, moves easily Cry: 1- occasional moan or whimper Consolability:0-content, relaxed Total Score: 3 Family Meeting: Participants: A Family meeting was held to discuss:Diagnosis and Prognosis, Goals of Care, Treatment Options, Symptom Management, Advanced Care Planning, and Prior Expressed Wishes Objective: BP (!) 185/91 Pulse 102 Temp 36.8 C (98.2 F) Resp 16 Ht 5' 4.57 (1.64 m) Wt 116 lb 4.8 oz (52.8 kg) SpO2 100% BMI 19.61 kg/m Physical Exam Vitals reviewed. Constitutional: Appearance: She is ill-appearing. She is not toxic-appearing. HENT: Head: Normocephalic. Mouth/Throat: Mouth: Mucous membranes are moist. Eyes: Extraocular Movements: Extraocular movements intact. Cardiovascular: Rate and Rhythm: Regular rhythm. Tachycardia present. Pulmonary: Effort: Pulmonary effort is normal. Breath sounds: Normal breath sounds. Abdominal: General: Abdomen is flat. There is no distension. Tenderness: There is no abdominal tenderness. Musculoskeletal: General: Swelling (+1 bilateral feet) present. Skin: Coloration: Skin is not pale. Neurological: Mental Status: She is alert. Comments: does not answer questions or follow commands Psychiatric: Comments: Calmer today Medication information: 24-hour PRN meds received: MAR reviewed Results/Verification of Data Review Objective data reviewed (must include dates reviewed for labs, imaging reports and other specialty notes): Data in Support of Terminal Illness: Is patient hospice appropriate? Eligible, but not consistent with [facility] at this time Transition Note Initiated: yes Chris Verdugo MD [facility] Geriatric Medicine Inpatient Consult Service Admission Date: 12/08/2024 Assessment Principal Problem: Fall, initial encounter Active Problems: Fall (on)(from) sidewalk curb, initial encounter Moderate malnutrition (CMS/HCC) (HCC) Plan Acute Encephalopathy --hypoactive, does not follow simple commands at time of visit. --Etiology unclear. Likely multifactorial related to concern for infection (WBC elevated but improved), pain, hospitalization, medication effects, electrolyte abnormalities (received HD today), reduced PO intake --Continue to treat acute/underlying illness per primary service. Blood cultures with NGTD at 48 hours. ID adjusting antibiotics- cefepime discontinued and started on Merrem --Repeat CT head 12/11 with no acute findings and after fall on 12/12 CT head with no acute intracranial abnormalities --MRI c-spine unable to tolerate. Agree with plan for sedated MRI c-spine and brain -- TSH WNL, vitamin B12 robust, and ammonia WNL --Encourage PO intake, time up in chair, family visits, supervised ambulation, and sleep hygiene --If agitated, assess for and consider treating for pain --QTc= 451 ms on 12/11/24 --[place] PRN Seroquel for ONLY if danger to self/others/treatment --Would avoid benzodiazepines in this older adult patient as this drug class increases risk of falls and confusion along with other potentially negative side effects which would outweigh any theoretical benefit. --Continue melatonin PRN at HS for insomnia --Monitor for constipation/urinary retention - last BM 12/13, bladder scan canceled yesterday as RN reports patient does not make urine --Possible medication contributions: PRN narcotics ?cefepime-ID following and now discontinued Sertraline- will discontinued as below Fall Declining functional status --Related to physical deconditioning, multiple hospitalizations, ESRD, seizure history --Unwitnessed fall on admission on 12/12/24 --Await PT/OT eval --Anticipate d/c to return to [facility] --Vitamin D 60 --Check orthostatic vital signs as able --Palliative care following --Diesel Dinkey Operator- supplements ordered BID Acute pain due to trauma -Management per primary service -Agree with scheduled tylenol (1000 mg q 8 hours) unless otherwise contraindicated. Recommend adjusting to 1000 mg PO TID -If narcotics are required recommend using lowest effective dose of oral narcotic as needed for breakthrough pain. -Continue lidocaine patch -Optimize nonpharmacologic pain treatment modalities. -Ensure that bowel regimen is in place while on narcotic regimen. Constipation -Chronic, recurrent problem -Management per primary service -Last documented BM 12/13 -Agree with MiraLAX as needed, goal is soft BM no less than every 3 days. Anxiety -Management per primary service -Sertraline discontinued. Initially started on admission and could possible contribute to encephalopathy. -Can continue pregabalin 25 mg daily PRN anxiety as this can help with pain/mood. Would not increase dose any higher due to CrCl Polypharmacy Medications reviewed with geriatric pharmacist with recommendations as below: -Consider checking levetiracetam level prior to next dose (should be a trough level) to rule out concern for toxicity. Concern that levetiracetam could be contributing to encephalopathy especially with intermittent missed hemodialysis sessions. -As a new medication with LEGAL TRANSCRIBER activity, sertraline may be a contributor to encephalopathy. Will discontinue at this time. - With poor PO intake and AMS, recommend changing PO thiamine to thiamine 500 mg in 100 mL NS or D5W IV three times daily for 2-7 days, then thiamine 250 mg in 100 mL NS or D5W IV daily for 3-5 days, then return to PO regimen. Plan discussed with RN and geriatric pharmacist. Follow-up: will follow with you Subjective Chief Complaint: fall Geriatrics consulted for fall HPI- The patient is known to me. 74 y.o. year-old female admitted to acute care from [facility] for fall on 12/08. Patient reportedly fell backwards and hit the back of her head on pavement, no loss of consciousness. Head CT in the emergency department did not show any acute intracranial findings, concerning for discitis. Diagnosed with anemia and concern for discitis. Started on empiric antibiotics and MRI c-spine pending. Hospital stay complicated by delirium. Unable to obtain MRI after multiple attempts. Interval History: Remains on 6W. Required soft wrist restraints as she pulling at dialysis lines yesterday evening. Labs reviewed with sodium 130, BUN 26, creatinine 4.37, glucose 95, WBC 13.1, hemoglobin 7.5. Received PRN haldol once at 21:14. Received hydromorphone twice on 12/13 and once on 12/14. Received PRN melatonin overnight. Patient resting in bed with unlabored respirations. Soft bilateral wrist restraints in place. Patient does not follow commands and nonverbal at time of visit. Patient is not moaning at time of visit. No family at bedside. Spoke to RN who reports patient had just received pain medication. Review of Systems Unable to perform ROS: Mental status change Objective BP (!) 185/91 Pulse 102 Temp 36.8 C (98.2 F) Resp 16 Ht 5' 4.57 (1.64 m) Wt 116 lb 4.8 oz (52.8 kg) SpO2 100% BMI 19.61 kg/m Intake/Output Summary (Last 24 hours) at 12/14/2024 1529 Last data filed at 12/14/2024 1250 Gross per 24 hour Intake 518.33 ml Output -- Net 518.33 ml Wt Readings from Last 3 Encounters: 12/11/24 116 lb 4.8 oz (52.8 kg) 12/06/24 103 lb (46.7 kg) 11/27/24 103 lb (46.7 kg) Current Medications[1] Physical Exam Vitals and nursing note reviewed. Constitutional: No acute distress, well-nourished, mildly disheveled, ill-appearing Psych: Mood and affect Lethargic. Poor eye contact. Cardiovascular: Regular rate and rhythm, + BLE edema Pulmonary/Chest: Clear to auscultation anterior only, normal respiratory effort, no coughing noted Abdominal: Soft, not distended, no tenderness to palpation, BS present, Neurological: somnolent but wakes to stimuli, inattentive, speech is unclear , disoriented, does not follow simple commands, Skin: warm and dry, no visible rashes or wounds Labs and Imaging: Recent Results (from the past 24 hours) POCT glucose meter Collection Time: 12/13/24 5:56 PM Result Value Ref Range Glucose 105 (H) 70 - 100 mg/dL CBC Collection Time: 12/14/24 1:26 AM Result Value Ref Range Auto WBC RBC Hemoglobin Hematocrit MCV MCH MCHC RDW Platelets MPV Ammonia Collection Time: 12/14/24 2:40 AM Result Value Ref Range AMMONIA 26 18 - 72 umol/L Comprehensive metabolic panel Collection Time: 12/14/24 2:40 AM Result Value Ref Range SODIUM 130 (L) 136 - 145 mmol/L POTASSIUM 3.7 3.5 - 5.1 mmol/L CHLORIDE 96 (L) 98 - 107 mmol/L CARBON DIOXIDE 25 23 - 31 mmol/L ANION GAP 9 3 - 13 mmol/L UREA NITROGEN 26 (H) 9 - 23 mg/dL CREATININE 4.37 (H) 0.57 - 1.11 mg/dL GLUCOSE 95 82 - 115 mg/dL CALCIUM 7.5 (L) 8.8 - 10.0 mg/dL AST (SGOT) 50 (H) <34 U/L ALT 13 <30 U/L ALKALINE PHOSPHATASE 131 40 - 150 U/L ALBUMIN 1.4 (L) 3.4 - 4.8 g/dL BILIRUBIN, TOTAL 0.4 <1.2 mg/dL TOTAL PROTEIN 6.2 (L) 6.4 - 8.3 g/dL eGFR 10.1 (L) >60.0 mL/min/1.73m*2 Type and screen Collection Time: 12/14/24 2:40 AM Result Value Ref Range ABO Grouping O Antibody Screen NEG Rh Type POS CBC auto differential Collection Time: 12/14/24 2:40 AM Result Value Ref Range Auto WBC 13.1 (H) 3.6 - 10.7 10*3/uL RBC 2.56 (L) 3.80 - 5.20 10*6/uL Hemoglobin 7.5 (L) 11.7 - 16.0 g/dL Hematocrit 23.6 (L) 35.0 - 47.0 % MCV 92.2 77.0 - 99.0 fL MCH 29.3 26.0 - 34.0 pg MCHC 31.8 30.5 - 36.0 % RDW 17.2 (H) 11.5 - 15.0 % Platelets 305 140 - 440 10*3/uL MPV 10.6 9.0 - 12.7 fL nRBC 0.0 0.0 - 2.0 /100 WBCs Neutrophils Relative 78.9 38.0 - 82.0 % Lymphocytes Relative 9.0 (L) 15.0 - 45.0 % Monocytes Relative 7.6 5.0 - 13.0 % Eosinophils Relative 3.3 0.0 - 6.0 % Basophils Relative 0.8 0.0 - 2.0 % Immature Grans % 0.4 0.0 - 2.0 % Neutrophils Absolute 10.4 (H) 1.8 - 7.5 10*3/uL Lymphocytes Absolute 1.2 1.0 - 4.3 10*3/uL Monocytes Absolute 1.0 (H) 0.0 - 0.9 10*3/uL Eosinophils Absolute 0.4 0.0 - 0.5 10*3/uL Basophils Absolute 0.1 0.0 - 0.2 10*3/uL Immature Grans Absolute 0.1 (H) <0.1 10*3/uL Phosphorus Collection Time: 12/14/24 2:40 AM Result Value Ref Range PHOSPHORUS 2.3 2.3 - 4.7 mg/dL POCT glucose meter Collection Time: 12/14/24 2:44 AM Result Value Ref Range Glucose 98 70 - 100 mg/dL POCT glucose meter Collection Time: 12/14/24 8:23 AM Result Value Ref Range Glucose 104 (H) 70 - 100 mg/dL POCT glucose meter Collection Time: 12/14/24 2:08 PM Result Value Ref Range Glucose 96 70 - 100 mg/dL Lab Results Component Value Date TSH 0.83 12/13/2024 Lab Results Component Value Date [id number] 1,419 (H) 12/13/2024 Lab Results Component Value Date VITD25 60 (H) 12/11/2024 Reviewed: allergies, imaging, active problem lists, medications, and labs [1] Current Facility-Administered Medications: acetaminophen (Tylenol) tablet 650 mg, 650 mg, Oral, q4h PRN OR Acetaminophen (Tylenol) 650 MG/20.3ML solution 650 mg, 650 mg, Oral, q4h PRN OR acetaminophen (Tylenol) suppository 650 mg, 650 mg, Rectal, q4h PRN, Radha Paredesmin, DO acetaminophen (Tylenol) tablet 1,000 mg, 1,000 mg, Oral, q8h, Radha Paredesmin, DO, 1,000 mg at 12/14/24 0540 alteplase (Cathflo Activase) 2 mg in sterile water 2 mL injection, 2 mg, IntraCATHeter, PRN, Sean Castaneda MD, 2 mg at 12/13/24 2148 alteplase (Cathflo Activase) 2 mg in sterile water 2 mL injection, 2 mg, IntraCATHeter, PRN, Sean Castaneda MD, 2 mg at 12/13/242147 amLODIPine (Norvasc) tablet 10 mg, 10 mg, Oral, Daily, Radha Kevin DO, 10 mg at 12/14/24 08 atorvastatin (Lipitor) tablet 40 mg, 40 mg, Oral, Nightly, Jonh Shepherd DO, 40 mg at 12/13/24 2202 B complex-vitamin C-folic acid (Nephrocaps) capsule 1 capsule, 1 capsule, Oral, Daily, John Shepherd DO, 1 capsule at 12/14/24 0801 cholecalciferol (Vitamin D-3) tablet 5,000 Units, 5,000 Units, Oral, Daily, John Shepherd DO, 5,000 Units at 12/14/24 0801 dextrose 5 % infusion, 100 mL/hr, IntraVENous, PRN, Ramonita Garnett NP, Last Rate: 100 mL/hr at 12/13/242, 100 mL/hr at 12/13/24 2242 dextrose 50 % solution 12.5 g, 12.5 g, IntraVENous, PRN, Ramonita Garnett NP, 12.5 g at 12/12/24 2230 gadopiclenol (Vueway) injection 5 mL, 5 mL, IntraVENous, Once PRN, Radha Kevin DO glucagon (human recombinant) injection 1 mg, 1 mg, IntraMUSCular, PRN, Ramonita Garnett NP glucose oral gel 15 g, 15 g, Oral, PRN, Ramonita Garnett NP heparin injection 1,200-2,000 Units, 1,200-2,000 Units, IntraCATHeter, PRN, Jose G P Zidehsarai, DO, 2,100 Units at 12/14/24 1245 heparin injection 1,200-2,000 Units, 1,200-2,000 Units, IntraCATHeter, PRN, Jose G P Zidehsarai, DO, 2,100 Units at 12/14/24 1245 heparin injection 5,000 Units, 5,000 Units, SubCUTAneous, 3 times per day, Leticia Leonardo, DO, 5,000 Units at 12/14/24 1335 hydrALAZINE (Apresoline) injection 10 mg, 10 mg, IntraVENous, q4h PRN, Radha Devinzmin, DO, 10 mg at 12/09/24 1521 HYDROmorphone (Dilaudid) injection 0.25 mg, 0.25 mg, IntraVENous, q4h PRN OR HYDROmorphone (Dilaudid) injection 0.5 mg, 0.5 mg, IntraVENous, q4h PRN, Chris Verdugo MD, 0.5 mg at 12/14/24 1337 labetalol (Normodyne,Trandate) injection 10 mg, 10 mg, IntraVENous, q6h PRN, Radhajacquelyn Paredesmin, DO, 10 mg at 12/11/241999 levETIRAcetam (Keppra) tablet 500 mg, 500 mg, Oral, Daily, John Stuartz, DO, 500 mg at 12/14/24 0801 Lidocaine 4 % patch 1 patch, 1 patch, TransDERmal, Daily, Radha Kevin DO melatonin tablet 5 mg, 5 mg, Oral, Nightly PRN, Eileen Duncan, RADIATION ONCOLOGIST - AGENCY TRAINER, 5 mg at 12/13/24 2202 meropenem (Merrem) 1,000 mg in sodium chloride 0.9 % 100 mL IVPB, 1,000 mg, IntraVENous, q12h, Shamar More MD, Last Rate: 33.3 mL/hr at 12/14/24 1336, 1,000 mg at 12/14/24 1336 naloxone (Narcan) injection 0.4 mg, 0.4 mg, IntraVENous, q5 min PRN, Radha Kuzmin, DO ondansetron ODT (Zofran-ODT) disintegrating tablet 4 mg, 4 mg, Oral, q8h PRN OR ondansetron (Zofran) injection 4 mg, 4 mg, IntraVENous, q6h PRN, John Benitez Pentz, DO oxyCODONE (Roxicodone) immediate release tablet 2.5 mg, 2.5 mg, Oral, q4h PRN, Radha Kuzmin, DO oxyCODONE (Roxicodone) immediate release tablet 5 mg, 5 mg, Oral, q4h PRN, Radha Kuzmin, DO, 5 mg at 12/11/24 2250 polyethylene glycol (PEG) 3350 (Miralax) packet 17 g, 17 g, Oral, Daily PRN, John Benitez Pentz, DO, 17 g at 12/10/24 1204 pregabalin (Lyrica) capsule 25 mg, 25 mg, Oral, BID PRN, Radha Beltranzmin, DO, 25 mg at 12/11/24 1052 QUEtiapine (SEROquel) tablet 12.5 mg, 12.5 mg, Oral, BID PRN, Eileen Duncan, RADIATION ONCOLOGIST - AGENCY TRAINER sevelamer carbonate (Renvela) tablet 800 mg, 800 mg, Oral, TID WC, John Benitez Pentz, DO, 800 mg at 12/14/24 0801 sodium chloride 0.9 % infusion, 250 mL/hr, IntraVENous, PRN, John Benitez Pentz, DO sodium chloride 0.9 % infusion, 5-250 mL/hr, IntraVENous, PRN, John Benitez Pentz, DO sodium chloride 0.9 % infusion, 250 mL/hr, IntraVENous, PRN, Ramonita Garnett, BRAYDEN sodium chloride 0.9% (NS) flush 5-40 mL, 5-40 mL, IntraVENous, q12h, John Benitez Pentz, DO, 10 mL at 12/12/24 0443 sodium chloride 0.9% (NS) flush 5-40 mL, 5-40 mL, IntraVENous, PRN, John Benitez Pentz, DO stomahesive in petrolatum (ET Mix), , Topical, 3 times per day, PARK Colin CNP, Given at 12/14/24 1425 stomahesive in petrolatum (ET Mix), , Topical, PRN, PARK Colin CNP, Given at 12/13/24 1748 thiamine (Vitamin B1) 500 mg in sodium chloride 0.9 % 100 mL IVPB, 500 mg, IntraVENous, TID, Leticia Leonardo DO vancomycin (Vancocin) intermittent dosing (placeholder), , Other, RX Placeholder, Radha Kevin DO Hospitalist Progress Note 12/14/2024 Subjective: Admit Date: 12/08/2024 PCP: Roxie Spain Room#: [id number] A BRIEF HOSPITAL COURSE: Per previous hospitalist's note: Apoorva is a 73 y.o. female with past medical history hx seizure ( 2021 a/w HTN encephalopathy) ,ESRD on HD ,AV graft placement (Dr. 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 difficile. She had a complicated year with admissions and infections Presented to ED this time after a mechanical fall while at dinner and L hip pain after the fall Normally she uses a wheelchair but she stood up to try to help her family member and fell backwards hitting her head on the pavement. She did not consciousness. In the emergency department, patient was hypertensive and mildly tachycardic but other vital signs were stable. Chemistry profile revealed hyponatremia at 135, hypokalemia at 2.6, hypochloremia at 94, creatinine of 3.05. Calcium 8.1. Alk phos 166, albumin 1.6, AST 46. She has a small leukocytosis with a WBC count of 11.2. Her hemoglobin is low at 6.9. She does have a mild left shift. -CT head/cervical spine completed shows endplate erosive changes at the C3/C4 intervertebral disc. No acute intracranial findings In the ER patient was given 40 mEq of potassium, vancomycin and cefepime for broad-spectrum coverage And admitted to observation for nephrology review regarding her electrolyte abnormalities, MRI of the cervical spine to rule out discitis prior to discharge, and blood transfusion. 12/09: No overnight issues. Going to MRI today with plan for HD afterwards . Unfortunately unable to tolerate d/t anxiety, but going to try again with ativan on board later today 12/10:Pain meds have been adjusted This am reports having pain everywhere Says wants to go home when she is ready On 12/11 daughter noted not answering questions and appearing uncomfortable. On 12/12 did not tolerate MRI. Patient continues to be confused and fall overnight. Sitter in room. ID and ortho and palliative care consulted. On 12/13 MRI with sedation ordered, tentatively scheduled for Wednesday but attempting to get scheduled sooner. Interval History: Patient seen and examined. Chart reviewed. No overnight issues. Unable to obtain ROS due to mental status change. Dialysis at bedside and patient nonverbal, moaning occasionally. Attempting to take 2 liters off during dialysis. Case and plan discussed with patient and bedside nurse. All questions answered. NPO diet NPO diet with enteral medications 24HR INTAKE/OUTPUT: Intake/Output Summary (Last 24 hours) at 12/14/2024 1148 Last data filed at 12/13/2024 1759 Gross per 24 hour Intake 828.33 ml Output -- Net 828.33 ml Past Medical History: Medical History[1] LABS: CBC: Recent Labs 12/12/2410212/13/245 12/14/24 0240 WBC 11.5* 16.5* 13.1* RBC 2.69* 2.75* 2.56* HGB 8.0* 8.0* 7.5* HCT 24.8* 25.3* 23.6* MCV 92.2 92.0 92.2 RDW 17.8* 17.6* 17.2* PLT 332 312 305 BMP: Recent Labs 12/12/2410212/13/24 0045 12/14/24 0240 NA 137 134* 130* K 4.1 4.2 3.7 CL 100 100 96* CO2 26 25 25 BUN 38* 22 26* CREATININE 5.60* 3.82* 4.37* GLUCOSE 77* 47* 95 CALCIUM 7.8* 7.8* 7.5* ANIONGAP 11 9 9 LIVER PROFILE: Recent Labs 12/12/24 0103 12/14/24 0240 AST 36* 50* ALT 10 13 BILITOT 0.4 0.4 ALKPHOS 131 131 PROT 6.1* 6.2* PT/INR: No results for input(s): PROTIME, INR in the last 72 hours. CARDIAC ENZYMES: No results for input(s): TROPONINI in the last 72 hours. Procalcitonin: No results found for: PROCAL COVID-19 PCR: No results for input(s): COVID19 in the last 72 hours. Objective: Vitals: BP 146/89 Pulse 85 Temp 37 C (98.6 F) Resp 16 Ht 5' 4.57 (1.64 m) Wt 116 lb 4.8 oz (52.8 kg) SpO2 99% BMI 19.61 kg/m Pulse Ox: SpO2 Av % Min: 94 % Max: 99 % Supplemental O2: O2 Flow Rate (L/min): 3.5 L/min Physical Exam Constitutional: General: She is not in acute distress. Appearance: She is ill-appearing. HENT: Head: Normocephalic and atraumatic. Mouth/Throat: Mouth: Mucous membranes are moist. Eyes: Extraocular Movements: Extraocular movements intact. Conjunctiva/sclera: Conjunctivae normal. Cardiovascular: Rate and Rhythm: Normal rate and regular rhythm. Pulmonary: Effort: Pulmonary effort is normal. Breath sounds: Normal breath sounds. Abdominal: General: There is no distension. Palpations: Abdomen is soft. Tenderness: There is no abdominal tenderness. Musculoskeletal: General: No swelling. Skin: General: Skin is warm and dry. Neurological: Mental Status: She is alert. She is disoriented. Comments: +nonverbal with occasional moaning Medications: Scheduled PRN Scheduled Meds[2] PRN Meds[3] Continuous Continuous Meds[4] Assessment Plan Sepsis -Confusion may be related to cefepime and stopped -Continue IV Vanco and IV Meropenem -Recent fistula infection -CT head from yesterday shows no acute process - ID following -MRI of the brain and C-spine under sedation ordered, tentatively Wednesday at 10 AM - ortho spine following - attempting to get MRI performed sooner Acute metabolic encephalopathy Mechanical fall -Seen by geriatrics -Soft restraints ordered due to patient pulling at lines -Video monitor in room Anemia-acute on chronic - no signs of active bleeding ESRD on hemodialysis - Dialysis on // -Nephrology following - fluid overload on CXR Hypertensive urgency -As needed labetalol Seizure disorder -Continue home Keppra Left hip pain -X-rays with no acute abnormality Hypokalemia - resolved Hyponatremia - mild Advance Directive: DNR-CCA Anticipated Discharge - Date - DC [facility] 12/16 Extended Emergency Contact Information Primary Emergency Contact: Deshawn Crystal Mobile Relation: Brother Technical Coordinator needed? No Secondary Emergency Contact: Edward Ruggiero Mobile Relation: Significant Other Preferred language: Cambodian Technical Coordinator needed? No Leticia Leonardo DO Division of Hospitalist Medicine [facility] [1] Past Medical History: Diagnosis Date Chronic kidney disease (CKD) Hemodialysis patient (CMS/HCC) (HCC) Wednesday, , Wednesday History of blood transfusion 02/27/2022 Hypertension Seizure (HCC) Developed seizure-like activity on 02/24 during hospital admission [2] acetaminophen, 1,000 mg, Oral, q8h amLODIPine, 10 mg, Oral, Daily atorvastatin, 40 mg, Oral, Nightly B complex-vitamin C-folic acid, 1 capsule, Oral, Daily cholecalciferol, 5,000 Units, Oral, Daily heparin, 5,000 Units, SubCUTAneous, 3 times per day levETIRAcetam, 500 mg, Oral, Daily Lidocaine, 1 patch, TransDERmal, Daily meropenem, 1,000 mg, IntraVENous, q12h sevelamer carbonate, 800 mg, Oral, TID WC sodium chloride 0.9%, 5-40 mL, IntraVENous, q12h stomahesive in petrolatum, , Topical, 3 times per day vitamin B-1, 250 mg, Oral, Daily vancomycin (Vancocin) intermittent dosing (placeholder), , Other, RX Placeholder [3] PRN medications: acetaminophen OR acetaminophen OR acetaminophen, alteplase (Cathflo Activase) 2 mg in sterile water 2 mL injection, alteplase (Cathflo Activase) 2 mg in sterile water 2 mL injection, dextrose, dextrose, gadopiclenol, glucagon (rDNA), glucose, heparin, heparin, hydrALAZINE, HYDROmorphone, labetalol, melatonin, naloxone, ondansetron ODT OR ondansetron, oxyCODONE, oxyCODONE, polyethylene glycol (PEG) 3350, pregabalin, sodium chloride, sodium chloride, sodium chloride, sodium chloride 0.9%, stomahesive in petrolatum [4] Images from the original note were not included. [facility] Progress Note Apoorva Gonzalez AGE: 74 y.o. GENDER: female : 1950 Subjective: HISTORY of PRESENT ILLNESS HPI Apoorva Gonzalez is a 74 y.o. female who presents for a wound care follow up. HPI: 74 y.o. who presents to the emergency department for mechanical fall. Patient usually uses a wheelchair but she stood up to try to help a family member into her car. She then fell backwards hitting her head on the pavement. Fall was witnessed by family and there was no loss of consciousness. Patient is complaining of pain to the back of her head but says there has not been any bleeding. Admitted for fall and closed head injury. Wound Care consulted for left buttock. Patient resting in bed. At time of visit, medical authorization specialist at bedside setting up. Treatment noted. PAST MEDICAL HISTORY Medical History[1] PAST SURGICAL HISTORY Surgical History[2] FAMILY HISTORY Family History[3] SOCIAL HISTORY Social History[4] ALLERGIES Allergies[5] MEDICATIONS Medications Ordered Prior to Encounter[6] REVIEW OF SYSTEMS Pertinent items are noted in HPI. Objective: BP 151/87 Pulse 88 Temp 37 C (98.6 F) Resp 16 Ht 5' 4.57 (1.64 m) Wt 116 lb 4.8 oz (52.8 kg) SpO2 99% BMI 19.61 kg/m PHYSICAL EXAM General appearance: in no apparent distress, well developed and well nourished, and alert Skin: warm and dry Pulmonary: Normal effort, no respiratory distress, no cyanosis Extremities: warm and dry Left buttock - 1.5 x 0.8 x 0.1cm - wound bed with large pink tissue and thin small slough, aminah wound tissue intact with scarring noted, small serosang drainage noted. Stable 12/13/24 LABS CBC: Lab Results Component Value Date WBC 13.1 (H) 12/14/2024 HGB 7.5 (L) 12/14/2024 HGB 9.3 12/11/2024 HCT 23.6 (L) 12/14/2024 MCV 92.2 12/14/2024 PLT 305 12/14/2024 BMP: Lab Results Component Value Date NA 130 (L) 12/14/2024 K 3.7 12/14/2024 CL 96 (L) 12/14/2024 CO2 25 12/14/2024 BUN 26 (H) 12/14/2024 CREATININE 4.37 (H) 12/14/2024 PT/INR: No results found for: PROTIME, INR Prealbumin: No results found for: PREALBUMIN Albumin:No components found for: LABALBU Sed Rate:No results found for: SEDRATE Micro: No components found for: BC Assessment/Plan: Nursing staff to perform dressing change: Left buttock stage 3 pressure injury (POA): -cleanse with soap and water, apply ET mix TID and PRN, leave [employer]ACH[employer]ADER -P500 bed -waffle chair cushion -Q2hr/PRN turns -glide sheets for T&R -continence checks Q1-2 Hrs/PRN Nutritional support Wound Care to follow Recommend to follow up at [facility] Out[facility] wound care center after hospital discharge. Any questions or concerns please secure chat [facility] wound/ostomy. Thank you for the consult! I personally obtained the saavedra and critical portions of the history and physical exam. I reviewed the labs, imaging studies, and electronic medical record. I reviewed the chart documentation and discussed the patient with treatment team members. I have edited the note to reflect my clinical findings and my assessment and plan. Please note, the time of this note does not reflect the time I saw this patient today, but the time of this documentaton. Portions of this note including HPI, ROS, impression/plan, and examination may have been copied forward from admission to today as to provide important historical information essential in contributing to medical decision making. Documentation has been reviewed and edited as necessary to support clinical decision making for today's visit and to reflect my own independent evaluation of this patient. Decision making for today's visit and to reflect my own independent evaluation of this patient. [1] Past Medical History: Diagnosis Date Chronic kidney disease (CKD) Hemodialysis patient (CMS/HCC) (HCC) Wednesday, , Wednesday History of blood transfusion 02/27/2022 Hypertension Seizure (HCC) Developed seizure-like activity on 02/24 during hospital admission [2] Past Surgical History: Procedure Laterality Date AV FISTULA PLACEMENT Left 08/07/2022 COLONOSCOPY N/A 01/25/2024 Performed by Chrissy Gilman MD at [facility] ENDOSCOPY IR CVC TUNNELED DIALYSIS CATHETER PLACEMENT 02/27/2022 IR CVC TUNNELED CATHETER PLACEMENT 02/27/2022 Candis Andrade MD [facility] SPECIAL PROCEDURES IR EMBOLIZATION 01/24/2024 IR EMBOLIZATION 01/24/2024 Jovan Glynn MD [facility] SPECIAL PROCEDURES VASCULAR SURGERY Left 11/02/2024 EXCISION OF LEFT UPPER EXTREMITY INFECTED GRAFT (JIM) VASCULAR SURGERY Left 11/05/2024 REVISION OR REPAIR, AV FISTULA (JIM) [3] Family History Problem Relation Name Age of Onset Dementia Mother Stroke Father Prostate cancer Brother 69 Breast cancer Cousin 32 Stomach cancer Mother's Sister 70 [4] Social History Tobacco Use Smoking status: Never Smokeless tobacco: Never Vaping Use Vaping status: Never Used Substance Use Topics Alcohol use: Yes Alcohol/week: 2.0 standard drinks of alcohol Types: 2 Glasses of wine per week Comment: weekly Drug use: Never [5] No Known Allergies [6] No current facility-administered medications on file prior to encounter. Current Outpatient Medications on File Prior to Encounter Medication Sig Dispense Refill acetaminophen (Tylenol) 325 MG tablet Take 650 mg by mouth every 6 hours as needed. amLODIPine (Norvasc) 5 MG tablet Take 1 tablet (5 mg) by mouth daily. B complex-vitamin C-folic acid (Nephro-Coleen) 0.8 MG tablet Take 0.8 mg by mouth daily. cholecalciferol (Vitamin D-3) 125 MCG (5000 UT) capsule Take 5,000 Units by mouth daily. melatonin 5 MG tablet Take 1 tablet (5 mg) by mouth Nightly. sevelamer (Renagel) 800 MG tablet Take 800 mg by mouth 3 times daily (with meals). Swallow tablet whole; do not crush, break, or chew. Thiamine HCl (vitamin B-1) 250 MG tablet Take 250 mg by mouth daily. atorvastatin (Lipitor) 40 MG tablet Take 1 tablet (40 mg) by mouth Nightly. 30 tablet 11 levETIRAcetam (Keppra) 500 MG tablet Take 1 tablet (500 mg) by mouth daily. 30 tablet 1 magnesium hydroxide (Milk of Magnesia) 2400 MG/10ML suspension suspension Take 30 mL by mouth Daily as needed for constipation. (Patient not taking: Reported on 12/09/2024) Cosigned by Evan Culp DO at 12/18/2024 4:21 PM EDT Images from the original note were not included. [facility] - Infectious Diseases Attending Progress Note Reason for Consult: Suspected diskitis, recent fistula infection Subjective/Interval Events: Patient was scheduled to receive extra dialysis session yesterday, but due to access issues, unable to receive session. She was also placed in soft wrist restraints overnight. Had dialysis session this morning. Leukocytosis has decreased this morning from 16.5 to 13.1. Ammonia level 26. She has been having episodes of HTN. Awaiting MR cervical spine and brain to be performed (likely 12/15 in the afternoon). Patient examined at bedside this afternoon. She awoke to verbal and physical stimuli. She was more aware today than she was yesterday, however, still not conversing or answering questions. She continues to moan but was sitting more still today. She does not appear in pain and was not complaining of pain when palpating the back of her neck and moving it in different planes of motion. She followed the command to squeeze my hands. Objective: Vitals: Patient Vitals for the past 24 hrs: BP Temp Temp src Pulse Resp SpO2 12/14/24 1358 (!) 185/91 -- -- 102 -- -- 12/14/24 1250 (!) 183/90 36.8 C (98.2 F) -- 97 16 100 % 12/14/24 1242 (!) 170/87 -- -- 94 -- -- 12/14/24 1230 155/91 -- -- 86 -- -- 12/14/24 1215 140/78 -- -- 80 -- -- 12/14/24 1200 141/79 -- -- 83 -- -- 12/14/24 1145 146/89 -- -- 85 -- -- 12/14/24 1130 157/94 -- -- 94 -- -- 12/14/24 1115 (!) 200/77 -- -- 86 -- -- 12/14/24 1100 (!) 166/82 -- -- 80 -- -- 12/14/24 1045 (!) 178/77 -- -- 77 -- -- 12/14/24 1030 151/87 -- -- 88 -- -- 12/14/24 1015 143/70 -- -- 81 -- -- 12/14/24 1000 (!) 162/86 -- -- 90 -- -- 12/14/24 0941 146/74 -- -- 78 -- -- 12/14/24 0935 156/96 37 C (98.6 F) -- 88 16 99 % 12/14/24 0824 -- -- -- 95 -- 95 % 12/14/24 0802 (!) 180/86 -- -- 95 -- -- 12/14/24 0755 -- 36 C (96.8 F) Temporal -- 16 -- 12/13/24 1923 (!) 161/96 36.6 C (97.8 F) Temporal 98 20 94 % Physical Exam Constitutional: General: She is not in acute distress. Comments: Sleeping, opens eyes to verbal and physical stimuli Not conversing HENT: Head: Normocephalic and atraumatic. Comments: No lumps palpated Does not appear tender to palpation Mouth/Throat: Mouth: Mucous membranes are dry. Eyes: Conjunctiva/sclera: Conjunctivae normal. Neck: Comments: Moved patient's neck in different planes of motion; she did not express pain or appear that she was in pain Cardiovascular: Rate and Rhythm: Normal rate and regular rhythm. Pulmonary: Effort: No respiratory distress. Breath sounds: Normal breath sounds. No wheezing. Abdominal: General: There is distension. Tenderness: There is no guarding. Musculoskeletal: Right lower leg: Edema present. Left lower leg: Edema present. Lymphadenopathy: Cervical: No cervical adenopathy. Skin: General: Skin is warm and dry. Neurological: Comments: More awake and alert than yesterday, however, not conversing, mostly moaning Psychiatric: Comments: Unable to assess Labs: Lab Results Component Value Date/Time NA 130 (L) 12/14/2024 024 K 3.7 12/14/2024 024 CL 96 (L) 12/14/2024 024 CO2 25 12/14/2024 024 BUN 26 (H) 12/14/2024 024 CREATININE 4.37 (H) 12/14/2024 024 GLUCOSE 95 12/14/2024 024 CALCIUM 7.5 (L) 12/14/2024 024 PROT 6.2 (L) 12/14/2024 024 BILITOT 0.4 12/14/2024 024 ALKPHOS 131 12/14/2024 024 AST 50 (H) 12/14/2024 0240 ALT 13 12/14/2024 0240 PROCAL 68.03 (H) 10/05/2024 1419 PROCAL 19.25 (H) 09/15/2024 0308 PROCAL 76.25 (H) 09/14/2024 0541 Lab Results Component Value Date/Time WBC 13.1 (H) 12/14/2024 024 HGB 7.5 (L) 12/14/2024 024 HGB 9.3 12/11/2024 2030 HCT 23.6 (L) 12/14/2024 024 PLT 305 12/14/2024 024 LYMPHOPCT 9.0 (L) 12/14/2024 024 LYMPHOPCT 8 (L) 11/01/2024316 MONOPCT 7.6 12/14/2024239 MONOPCT 2 (L) 11/01/2024 0317 BASOPCT 0.8 12/14/2024 0240 BASOPCT 1 11/01/2024 0317 NEUTROABS 10.4 (H) 12/14/2024 0240 Micro: 12/12/2024 - 05/07 blood cultures show no growth at 48 hours LDA: HD tunneled catheter left subclavian PIV RUE Imagin12/06/2024 US vascular 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 No evidence of deep vein thrombosis in the right upper extremity. No evidence of deep vein thrombosis in the left upper extremity. No evidence of superficial vein thrombosis in the left upper extremity. Vessel diameters as noted in the table below. 12/08/2024 CT head 12/08/2024 CT cervical spine IMPRESSION: Endplate erosive changes at the C3/C4 intervertebral disc. MRI may be helpful to evaluate for discitis. 12/09/2024 XR left hip IMPRESSION: Arthroplasties in adequate alignment. No acute abnormality. Antibiotics: 12/09/2024 - 12/14/2024 - cefepime 12/12/2024 - 12/13/2024 - Vancomycin 12/14/2024 - meropenem Summary: This is a 74 year old female presenting after a mechanical fall where she hit her head on the pavement. No LOC. She had history of Enterobacter cloacae bacteremia, Klebsiella pneumoniae, Klebsiella oxytoca, and Enterococcus casseliflavus. CT imaging suggesting endplate erosive changes at C3/C4 intervertebral disc. MRI ordered to assess for discitis. Patient is AxO x0 and it is difficult to assess her symptoms. Given 4 day course of cefepime, currently on vancomycin and meropenem. Blood cultures showing NGTD. Unclear if mental status change is due to cefepime use vs seeding of prior upper extremity graft infection vs uremia from missing dialysis. Last dialysis session 12/14. Assessment: Concern for discitis, possibly seeded from prior upper extremity graft infection ESRD on HD MWF - possible uremia causing mental status change due to missed dialysis sessions (has had dialysis session 12/12 and 12/14) Hx infected hematoma - right thigh and anterior hip Hx Enterobacter cloacae bacteremia, Klebsiella pneumoniae, Klebsiella oxytoca, and Enterococcus casseliflavus Hx C diff colitis Hx left upper extremity growing Enterobacter cloacae Leukocytosis - improving Hx Afib Hx COVID infection Plan: Continue vancomycin. Discontinue cefepime. Start meropenem. Awaiting MRI results; likely to take place 12/15 in the afternoon If MRI results are abnormal, would like to obtain tissue diagnosis to determine abx course (may need 6 weeks if MRI is abnormal). Follow blood cultures ID will continue to follow. Yvonne Worrell, PGY-1 Cosigned by Shamar More MD at 12/14/2024 4:44 PM EDT Associated attestation - Shamar More MD - 12/14/2024 4:44 PM EDT [facility] Infectious Disease Attending Note Patient seen and evaluated with resident/student. I performed/re-performed a history, physical examination, and saavedra elements of management of the patient and discussed his/her management with the resident/student. I reviewed the resident/student note and agree with the documented findings and plan of care with changes as noted with italics. Total time of 50 minutes on this day of encounter spent on, but not limited to review of tests, medical records , complex history , ordering medications, tests, and procedures, and communication with other health care professions. Images from the original note were not included. Orthopedic Progress Note Name: Apoorva Gonzalez Date:12/13/2024 Attending:Leticia Leonardo DO Subjective CHIEF COMPLAINT: erosive changes at the C3-4 level HPI: Orthopedic surgery to bedside to attempt spine exam. Patient is resting in bed, unable to follow commands or answer questions appropriately. Patient's family is at bedside, and states that at baseline, patient lives in a SNF and is able to answer questions appropriately. Discussed with patient family plan of care. Sitter is also at bedside. Patient intermittently mumbles incoherently Objective PAST MEDICAL HISTORY Problem List[1] PAST SURGICAL HISTORY Surgical History[2] HOME MEDICATIONS Prior to Admission medications Medication Sig Start Date End Date Taking? Authorizing Provider acetaminophen (Tylenol) 325 MG tablet Take 650 mg by mouth every 6 hours as needed. 5/22/25 Yes Historical Provider, amLODIPine (Norvasc) 5 MG tablet Take 1 tablet (5 mg) by mouth daily. 11/11/24 11/11/25 Yes Gerard Carrillo DO B complex-vitamin C-folic acid (Nephro-Coleen) 0.8 MG tablet Take 0.8 mg by mouth daily. Yes Historical Provider, cholecalciferol (Vitamin D-3) 125 MCG (5000 UT) capsule Take 5,000 Units by mouth daily. Yes Historical Provider, melatonin 5 MG tablet Take 1 tablet (5 mg) by mouth Nightly. 11/11/24 Yes Gerard Carrillo DO sevelamer (Renagel) 800 MG tablet Take 800 mg by mouth 3 times daily (with meals). Swallow tablet whole; do not crush, break, or chew. Yes Historical Provider, Thiamine HCl (vitamin B-1) 250 MG tablet Take 250 mg by mouth daily. Yes Historical Provider, atorvastatin (Lipitor) 40 MG tablet Take 1 tablet (40 mg) by mouth Nightly. 03/02/22 12/06/24 Evan Joshua APRN - TAMIR levETIRAcetam (Keppra) 500 MG tablet Take 1 tablet (500 mg) by mouth daily. 03/02/22 12/06/24 Evan Joshua APRN - TAMIR magnesium hydroxide (Milk of Magnesia) 2400 MG/10ML suspension suspension Take 30 mL by mouth Daily as needed for constipation. Patient not taking: Reported on 12/09/2024 Historical Provider, sulfamethoxazole-trimethoprim (Bactrim DS) 800-160 MG tablet Take 1 tablet by mouth daily for 4 days. 11/11/24 12/06/24 Gerard Carrillo DO CURRENT HOSPITAL MEDICATIONS Current Medications[3] ALLERGIES: Patient has no known allergies. SOCIAL HISTORY: Social History Socioeconomic History Marital status: Spouse name: Not on file Number of children: Not on file Years of education: Not on file Highest education level: Not on file Occupational History Not on file Tobacco Use Smoking status: Never Smokeless tobacco: Never Vaping Use Vaping status: Never Used Substance and Sexual Activity Alcohol use: Yes Alcohol/week: 2.0 standard drinks of alcohol Types: 2 Glasses of wine per week Comment: weekly Drug use: Never Sexual activity: Not on file Other Topics Concern Not on file Social History Narrative Not on file Social Drivers of Health Financial Resource Strain: Low Risk (12/09/2024) Overall Financial Resource Strain (CARDIA) Difficulty of Paying Living Expenses: Not hard at all Food Insecurity: No Food Insecurity (12/09/2024) Hunger Vital Sign Worried About Running Out of Food in the Last Year: Never true Ran Out of Food in the Last Year: Never true Transportation Needs: No Transportation Needs (12/09/2024) PRAPARE - Transportation Lack of Transportation (Medical): No Lack of Transportation (Non-Medical): No Physical Activity: Insufficiently Active (12/09/2024) Exercise Vital Sign Days of Exercise per Week: 1 day Minutes of Exercise per Session: 10 min Stress: Stress Concern Present (12/09/2024) [place] [facility] - Occupational Stress Questionnaire Feeling of Stress : Very much Social Connections: Moderately Integrated (12/09/2024) Social Connection and Isolation Panel [NHANES] Frequency of Communication with Friends and Family: More than three times a week Frequency of Social Gatherings with Friends and Family: Three times a week Attends Ep[employer] Services: 1 to 4 times per year Active Member of Clubs or Organizations: Yes Attends Club or Organization Meetings: Never Marital Status: Intimate Partner Violence: Not At Risk (12/09/2024) Humiliation, Afraid, Rape, and Kick questionnaire Fear of Current or Ex-Partner: No Emotionally Abused: No Physically Abused: No Sexually Abused: No Housing Stability: Low Risk (12/09/2024) Housing Stability Vital Sign Unable to Pay for Housing in the Last Year: No Number of Times Moved in the Last Year: 0 Homeless in the Last Year: No FAMILY HISTORY: Family History[4] Further Family History is noncontributory to this injury. REVIEW OF SYSTEMS: Unable to assess secondary to current mentation VITALS: Vitals: 12/12/24199912/12/24223012/12/24232312/13/24926 BP: 150/81 (!) 149/112 158/84 151/76 BP Location: Right arm Right arm Right arm Patient Position: Sitting Lying Lying Pulse: 111 (!) 129 115 91 Resp: 16 16 20 18 Temp: 36.4 C (97.6 F) 36.7 C (98 F) 37.1 C (98.7 F) 36.9 C (98.5 F) TempSrc: Temporal Temporal Temporal Temporal SpO2: 98% 94% 94% 97% Weight: Height: PHYSICAL EXAM: GENERAL: Patient is well developed/well nourished in NAD. MOOD AND AFFECT: Calm appropriate to situation GAIT AND STATION: Patient is in bed COORDINATION and BALANCE: Patient is grossly coordinated LYMPHADENOPATHY: none on examination of the affected extremity(s) SPINE/EXTREMITY: POSTURE: Posture is appropriate and within age defined normal limits. There is no abnormal kyphosis, lordosis or scoliosis. Forward gaze is maintained. UPPER EXTREMITY MOTOR: Unable to assess secondary to current mentation LOWER EXTREMITY MOTOR: Unable to assess secondary to current mentation UPPER EXTREMITY SENSATION TO LIGHT TOUCH: Unable to assess secondary to current mentation LOWER EXTREMITY SENSATION TO LIGHT TOUCH: Unable to assess secondary to current mentation LABS: CBC: Lab Results Component Value Date WBC 16.5 (H) 12/13/2024 RBC 2.75 (L) 12/13/2024 BMP: Lab Results Component Value Date GLUCOSE 47 (LL) 12/13/2024 CO2 25 12/13/2024 BUN 22 12/13/2024 CREATININE 3.82 (H) 12/13/2024 CALCIUM 7.8 (L) 12/13/2024 PT/INR: No results found for: PT, INR, APTT Type and Screen: No results found for: RH, LABANTI CRP: Lab Results Component Value Date CRP 133.0 (H) 12/13/2024 ESR: No results found for: SEDRATE HgBA1c: No components found for: LABA1C The above labs were reviewed by me. Assessment Apoorva is a 74 y.o.female erosive changes at the C3-4 level Plan -Patient has erosive changes on CT cervical spine concerning for discitis but she was unable to participate in spine exam at the time of evaluation. -blood cultures 12/12 p (NGx1) -MRI w sedation ordered by 1 team, and will be performed on 12/18 at 10:00. N.p.o. at midnight 12/18/2024 for MRI -Weightbearing as tolerated bilateral lower extremities -Activity as tolerated -Neurovascular checks -Skin checks -Pain and medical management per primary -Orthopaedic surgery will follow peripherally for MRI completion and will update plan of care accordingly. Please page skilled nursing professional orthopaedic resident for questions or concerns. [1] Patient Active Problem List Diagnosis Hypertensive emergency Gastrointestinal hemorrhage, unspecified gastrointestinal hemorrhage type Anemia Pulmonary edema, acute (HCC) Shortness of breath COVID-19 Edema of left lower extremity Sepsis, due to unspecified organism, unspecified whether acute organ dysfunction present (HCC) Seizures (HCC) ESRD (end stage renal disease) (HCC) Dialysis patient (HCC) Wound dehiscence End stage congestive heart failure (HCC) Fall, initial encounter Fall (on)(from) sidewalk curb, initial encounter [2] Past Surgical History: Procedure Laterality Date AV FISTULA PLACEMENT Left 08/07/2022 COLONOSCOPY N/A 01/25/2024 Performed by Chrissy Gilman MD at [facility] ENDOSCOPY IR CVC TUNNELED DIALYSIS CATHETER PLACEMENT 02/27/2022 IR CVC TUNNELED CATHETER PLACEMENT 02/27/2022 Candis Andrade MD [facility] SPECIAL PROCEDURES IR EMBOLIZATION 01/24/2024 IR EMBOLIZATION 01/24/2024 Jovan Glynn MD [facility] SPECIAL PROCEDURES VASCULAR SURGERY Left 11/02/2024 EXCISION OF LEFT UPPER EXTREMITY INFECTED GRAFT (JIM) VASCULAR SURGERY Left 11/05/2024 REVISION OR REPAIR, AV FISTULA (JIM) [3] Current Facility-Administered Medications: acetaminophen (Tylenol) tablet 650 mg, 650 mg, Oral, q4h PRN OR Acetaminophen (Tylenol) 650 MG/20.3ML solution 650 mg, 650 mg, Oral, q4h PRN OR acetaminophen (Tylenol) suppository 650 mg, 650 mg, Rectal, q4h PRN, Radha Kuzmin, DO acetaminophen (Tylenol) tablet 1,000 mg, 1,000 mg, Oral, q8h, Radha Kuzmin, DO, 1,000 mg at 12/13/24 0537 amLODIPine (Norvasc) tablet 10 mg, 10 mg, Oral, Daily, Radha Kuzmin, DO, 10 mg at 12/13/24 0911 atorvastatin (Lipitor) tablet 40 mg, 40 mg, Oral, Nightly, John Shepherd, DO, 40 mg at 12/12/24 2116 B complex-vitamin C-folic acid (Nephrocaps) capsule 1 capsule, 1 capsule, Oral, Daily, John Shepherd, DO, 1 capsule at 12/13/24 0911 cefepime (Maxipime) 1,000 mg in sodium chloride 0.9 % 50 mL IVPB, 1,000 mg, IntraVENous, q12h, Jacob Laguna DO, Stopped at 12/13/24 1329 cholecalciferol (Vitamin D-3) tablet 5,000 Units, 5,000 Units, Oral, Daily, John Shepherd, DO, 5,000 Units at 12/13/24 0912 dextrose 5 % infusion, 100 mL/hr, IntraVENous, PRN, Ramonita Garnett NP, Last Rate: 100 mL/hr at 12/13/24 1448, 100 mL/hr at 12/13/24 1448 dextrose 50 % solution 12.5 g, 12.5 g, IntraVENous, PRN, Ramonita Garnett NP, 12.5 g at 12/12/24 2230 gadopiclenol (Vueway) injection 5 mL, 5 mL, IntraVENous, Once PRN, Radha Kevin DO glucagon (human recombinant) injection 1 mg, 1 mg, IntraMUSCular, PRN, Ramonita Garnett NP glucose oral gel 15 g, 15 g, Oral, PRN, Ramonita Garnett NP heparin injection 1,200-2,000 Units, 1,200-2,000 Units, IntraCATHeter, PRN, Jose G P Zidehsarai, DO, 2,100 Units at 12/12/24 1758 heparin injection 1,200-2,000 Units, 1,200-2,000 Units, IntraCATHeter, PRN, Jose G P Zidehsarai, DO, 2,000 Units at 12/12/24 1758 heparin injection 5,000 Units, 5,000 Units, SubCUTAneous, 3 times per day, Leticia Leonardo DO, 5,000 Units at 12/13/24 1340 hydrALAZINE (Apresoline) injection 10 mg, 10 mg, IntraVENous, q4h PRN, Radha Kevin, DO, 10 mg at 12/09/24 1521 HYDROmorphone (Dilaudid) injection 0.25 mg, 0.25 mg, IntraVENous, q4h PRN, Chris Verdugo MD, 0.25 mg at 12/13/24 1341 labetalol (Normodyne,Trandate) injection 10 mg, 10 mg, IntraVENous, q6h PRN, Radhajacquelyn Beltranzmin, DO, 10 mg at 12/11/241999 levETIRAcetam (Keppra) tablet 500 mg, 500 mg, Oral, Daily, John Benitez Pentz, DO, 500 mg at 12/13/24 0912 Lidocaine 4 % patch 1 patch, 1 patch, TransDERmal, Daily, Radha Beltranzmin, DO melatonin tablet 5 mg, 5 mg, Oral, Nightly PRN, Eileen Duncan, RADIATION ONCOLOGIST - TAMIR naloxone (Narcan) injection 0.4 mg, 0.4 mg, IntraVENous, q5 min PRN, Radha Paredesmin, DO ondansetron ODT (Zofran-ODT) disintegrating tablet 4 mg, 4 mg, Oral, q8h PRN OR ondansetron (Zofran) injection 4 mg, 4 mg, IntraVENous, q6h PRN, John Benitez Pentz, DO oxyCODONE (Roxicodone) immediate release tablet 2.5 mg, 2.5 mg, Oral, q4h PRN, Radha Beltranzmin, DO oxyCODONE (Roxicodone) immediate release tablet 5 mg, 5 mg, Oral, q4h PRN, Radha Beltranzmin, DO, 5 mg at 12/11/24 2250 polyethylene glycol (PEG) 3350 (Miralax) packet 17 g, 17 g, Oral, Daily PRN, John Benitez Pentz, DO, 17 g at 12/10/24 1204 pregabalin (Lyrica) capsule 25 mg, 25 mg, Oral, BID PRN, Radha Beltranzmin, DO, 25 mg at 12/11/24 1052 sevelamer carbonate (Renvela) tablet 800 mg, 800 mg, Oral, TID WC, John Benitez Pentz, DO, 800 mg at 12/13/24 0912 sodium chloride 0.9 % infusion, 250 mL/hr, IntraVENous, PRN, John Shepherd, DO sodium chloride 0.9 % infusion, 5-250 mL/hr, IntraVENous, PRN, John Shepherd, DO sodium chloride 0.9% (NS) flush 5-40 mL, 5-40 mL, IntraVENous, q12h, John Shepherd, DO, 10 mL at 12/12/24 0443 sodium chloride 0.9% (NS) flush 5-40 mL, 5-40 mL, IntraVENous, PRN, John Shepherd, DO stomahesive in petrolatum (ET Mix), , Topical, 3 times per day, PARK Colin CNP stomahesive in petrolatum (ET Mix), , Topical, PRN, PARK Colin CNP thiamine (Vitamin B1) tablet 250 mg, 250 mg, Oral, Daily, John Shepherd DO, 250 mg at 12/13/24 0912 vancomycin (Vancocin) intermittent dosing (placeholder), , Other, RX Placeholder, Radha Kevin DO [4] Family History Problem Relation Name Age of Onset Dementia Mother Stroke Father Prostate cancer Brother 69 Breast cancer Cousin 32 Stomach cancer Mother's Sister 70 Images from the original note were not included. Pharmacy Managed Vancomycin Dosing Service Progress Note Consult Date: 12/13/24 Patient Name: Apoorva Gonzalez Allergies: Patient has no known allergies. Age: 74 y.o. Sex: female Ht: Height: 164 cm (5' 4.57) TBW: Weight: 52.8 kg (116 lb 4.8 oz) BMI: Body mass index is 19.61 kg/m . Lab Results Component Value Date CREATININE 3.82 (H) 12/13/2024 CREATININE 5.60 (H) 12/12/2024 BUN 22 12/13/2024 BUN 38 (H) 12/12/2024 WBC 16.5 (H) 12/13/2024 WBC 11.5 (H) 12/12/2024 DW: 52.8 kg Renal: [x]HD []CRRT []PD [] CrCl ml/min (Cockcroft-Gault, if ROLANDO, no GARMENT ALTERATION EXAMINER) Infectious Diagnosis: Bone and joint infection (discitis) (target level = 15 mg/L) Next level due: 4 hours after 12/13 HD (Lab order given to second shift/third shift pharmacist to follow) Antimicrobials: Patient recently received an antibiotic (last 12 hours) Date/Time Action Medication Dose Rate 12/13/24 1229 New Bag cefepime (Maxipime) 1,000 mg in sodium chloride 0.9 % 50 mL IVPB 1,000 mg 100 mL/hr 12/13/24 0941 New Bag vancomycin (Vancocin) 750 mg in sodium chloride 0.9 % 250 mL IVPB 750 mg 250 mL/hr Assessment/Plan: Intermittent vancomycin dosing (Pulse Dosing). Lab Results Component Value Date VANCOTROUGH 27.2 10/26/2024 VANCORANDOM 15.4 12/13/2024 Given 750mg x1 this am for level 15.4mcg/mL (14.2mg/kg) Will adjust dose/frequency if needed according to level. Follow renal status closely. Orders placed. Thank you for this consult. Please page/call with questions. Date: 12/13/24 Time: 2:03 PM Hilda Wilkes RPh (available on [employer]) Hospitalist Progress Note 12/13/2024 Subjective: Admit Date: 12/08/2024 PCP: Roxie Spain Room#: [id number] A BRIEF HOSPITAL COURSE: Per previous hospitalist's note: Apoorva is a 73 y.o. female with past medical history hx seizure ( 2021 a/w HTN encephalopathy) ,ESRD on HD ,AV graft placement (Dr. 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 difficile. She had a complicated year with admissions and infections Presented to ED this time after a mechanical fall while at dinner and L hip pain after the fall Normally she uses a wheelchair but she stood up to try to help her family member and fell backwards hitting her head on the pavement. She did not consciousness. In the emergency department, patient was hypertensive and mildly tachycardic but other vital signs were stable. Chemistry profile revealed hyponatremia at 135, hypokalemia at 2.6, hypochloremia at 94, creatinine of 3.05. Calcium 8.1. Alk phos 166, albumin 1.6, AST 46. She has a small leukocytosis with a WBC count of 11.2. Her hemoglobin is low at 6.9. She does have a mild left shift. -CT head/cervical spine completed shows endplate erosive changes at the C3/C4 intervertebral disc. No acute intracranial findings In the ER patient was given 40 mEq of potassium, vancomycin and cefepime for broad-spectrum coverage And admitted to observation for nephrology review regarding her electrolyte abnormalities, MRI of the cervical spine to rule out discitis prior to discharge, and blood transfusion. 12/09: No overnight issues. Going to MRI today with plan for HD afterwards . Unfortunately unable to tolerate d/t anxiety, but going to try again with ativan on board later today 12/10:Pain meds have been adjusted This am reports having pain everywhere Says wants to go home when she is ready On 12/11 daughter noted not answering questions and appearing uncomfortable. On 12/12 did not tolerate MRI. Patient continues to be confused and fall overnight. Sitter in room. ID and ortho and palliative care consulted. Interval History: Patient seen and examined. Chart reviewed. Overnight had fall and sitter in the room. Patient only moans in pain occasionally and attempts to get out of bed. Per sitter at bedside the patient has been nonverbal today. MRI with sedation scheduled Wednesday at 10 AM. Case and plan discussed with patient and bedside nurse. All questions answered. Adult diet Regular NPO diet 24HR INTAKE/OUTPUT: Intake/Output Summary (Last 24 hours) at 12/13/2024 1335 Last data filed at 12/13/2024 0942 Gross per 24 hour Intake 975 ml Output -- Net 975 ml Past Medical History: Medical History[1] LABS: CBC: Recent Labs 12/11/24 0225 12/11/24 2030 12/12/24 0103 12/13/24 0045 WBC 12.1* -- 11.5* 16.5* RBC 2.57* -- 2.69* 2.75* HGB 7.7* 9.3 8.0* 8.0* HCT 23.6* -- 24.8* 25.3* MCV 91.8 -- 92.2 92.0 RDW 18.3* -- 17.8* 17.6* PLT 300 -- 332 312 BMP: Recent Labs 12/11/2422412/12/24 0103 12/13/24 0045 NA 138 137 134* K 3.7 4.1 4.2 CL 100 100 100 CO2 27 26 25 BUN 32* 38* 22 CREATININE 4.96* 5.60* 3.82* GLUCOSE 74* 77* 47* CALCIUM 8.0* 7.8* 7.8* ANIONGAP 11 11 9 LIVER PROFILE: Recent Labs 12/11/2422412/12/24 0103 AST 41* 36* ALT 13 10 BILITOT 0.4 0.4 ALKPHOS 149 131 PROT 6.5 6.1* PT/INR: No results for input(s): PROTIME, INR in the last 72 hours. CARDIAC ENZYMES: No results for input(s): TROPONINI in the last 72 hours. Procalcitonin: No results found for: PROCAL COVID-19 PCR: No results for input(s): COVID19 in the last 72 hours. Objective: Vitals: BP 151/76 Pulse 91 Temp 36.9 C (98.5 F) (Temporal) Resp 18 Ht 5' 4.57 (1.64 m) Wt 116 lb 4.8 oz (52.8 kg) SpO2 97% BMI 19.61 kg/m Pulse Ox: SpO2 Av.8 % Min: 94 % Max: 98 % Supplemental O2: O2 Flow Rate (L/min): 3.5 L/min Physical Exam Constitutional: General: She is not in acute distress. Comments: +restless, attempting to get out of bed HENT: Head: Normocephalic and atraumatic. Mouth/Throat: Mouth: Mucous membranes are moist. Eyes: Extraocular Movements: Extraocular movements intact. Conjunctiva/sclera: Conjunctivae normal. Cardiovascular: Rate and Rhythm: Normal rate and regular rhythm. Pulmonary: Effort: Pulmonary effort is normal. Breath sounds: Normal breath sounds. Abdominal: General: There is no distension. Palpations: Abdomen is soft. Tenderness: There is no abdominal tenderness. Musculoskeletal: General: No swelling. Skin: General: Skin is warm and dry. Neurological: General: No focal deficit present. Mental Status: She is alert. She is disoriented. Medications: Scheduled PRN Scheduled Meds[2] PRN Meds[3] Continuous Continuous Meds[4] Assessment Plan Sepsis -Confusion may be related to cefepime and messaged ID about potential change -Continue IV Vanco -Recent fistula infection -CT head from yesterday shows no acute process - ID following -MRI of the brain and C-spine under sedation ordered, Wednesday at 10 AM - ortho spine following - Discussed with palliative care Acute metabolic encephalopathy Mechanical fall -Seen by geriatrics Anemia-acute on chronic - no signs of active bleeding ESRD on hemodialysis - Dialysis on // -Nephrology following - fluid overload on CXR Hypertensive urgency -As needed labetalol Seizure disorder -Continue home Keppra Left hip pain -X-rays with no acute abnormality Hypokalemia - resolved Hyponatremia - mild Advance Directive: DNR-CCA Anticipated Discharge - Date - DC [facility] 12/15 Extended Emergency Contact Information Primary Emergency Contact: BonillaDeshawn Mobile Relation: Brother Technical Coordinator needed? No Secondary Emergency Contact: Edward Ruggiero Mobile Relation: Significant Other Preferred language: Cambodian Technical Coordinator needed? No Leticia Leonardo DO Division of Hospitalist Medicine Acute care [facility] [1] Past Medical History: Diagnosis Date Chronic kidney disease (CKD) Hemodialysis patient ([facility]) ([facility]) Wednesday, , Wednesday History of blood transfusion 02/27/2022 Hypertension Seizure ([facility]) Developed seizure-like activity on 02/24 during hospital admission [2] acetaminophen, 1,000 mg, Oral, q8h amLODIPine, 10 mg, Oral, Daily atorvastatin, 40 mg, Oral, Nightly B complex-vitamin C-folic acid, 1 capsule, Oral, Daily cefepime, 1,000 mg, IntraVENous, q12h cholecalciferol, 5,000 Units, Oral, Daily heparin, 5,000 Units, SubCUTAneous, 3 times per day levETIRAcetam, 500 mg, Oral, Daily Lidocaine, 1 patch, TransDERmal, Daily melatonin, 5 mg, Oral, Nightly sertraline, 25 mg, Oral, Daily sevelamer carbonate, 800 mg, Oral, TID WC sodium chloride 0.9%, 5-40 mL, IntraVENous, q12h stomahesive in petrolatum, , Topical, 3 times per day vitamin B-1, 250 mg, Oral, Daily vancomycin (Vancocin) intermittent dosing (placeholder), , Other, RX Placeholder [3] PRN medications: acetaminophen OR acetaminophen OR acetaminophen, dextrose, dextrose, gadopiclenol, glucagon (rDNA), glucose, heparin, heparin, hydrALAZINE, HYDROmorphone, labetalol, naloxone, ondansetron ODT OR ondansetron, oxyCODONE, oxyCODONE, polyethylene glycol (PEG) 3350, pregabalin, sodium chloride, sodium chloride, sodium chloride 0.9%, stomahesive in petrolatum [4] Nephrology Progress Note Following for ESRD Pt seen in room Moaning Expanded on exam HD today Current Inpatient Medications: Reviewed on JUN. Vitals: BP 151/76 Pulse 91 Temp 36.9 C (98.5 F) (Temporal) Resp 18 Ht 1.64 m (5' 4.57) Wt 52.8 kg (116 lb 4.8 oz) SpO2 97% BMI 19.61 kg/m BLOOD PRESSURE RANGE: Systolic (24hrs), Av , Min:92 , Max:159 ; Diastolic (24hrs), Av, Min:65, Max:112 24HR INTAKE/OUTPUT: Intake/Output Summary (Last 24 hours) at 12/13/2024 1315 Last data filed at 12/13/2024 0942 Gross per 24 hour Intake 975 ml Output -- Net 975 ml Physical exam: Constitutional: ill appearing Skin: no rash, turgor wnl Heent: eomi, mmm Neck: no bruits or jvd noted Cardiovascular: Normal S1, S2 without m/r/g Respiratory: CTAB without w/r/r Abdomen: +bs, soft, nt, nd Ext: + lower extremity edema Data: Labs: Recent Labs 12/11/2422412/11/24202912/12/2410212/13/24 004 WBC 12.1* -- 11.5* 16.5* HGB 7.7* 9.3 8.0* 8.0* HCT 23.6* -- 24.8* 25.3* MCV 91.8 -- 92.2 92.0 PLT 300 -- 332 312 Recent Labs 12/11/2422412/12/2410212/13/2444 NA 138 137 134* K 3.7 4.1 4.2 CL 100 100 100 CO2 27 26 25 GLUCOSE 74* 77* 47* CALCIUM 8.0* 7.8* 7.8* BUN 32* 38* 22 CREATININE 4.96* 5.60* 3.82* Assessment and Plan: 74 yo female pmhx of ESRD on MWF HD presented after fall. Nephrology following for ESRD ESRD Continue MWF plan for HD today Volume + expansion on exam Bp stable Electrolytes Stabilization with HD MBD Phos 1.7 Ca 8.0 Not on binders ok to replace phos Plan Hd today Monitor Volume status electrolytes cbc daily Continue to monitor BMP and electrolytes daily; replace K, Ca, Mg as needed. Transfuse PRBCs for Hgb < 7.0 g/dL; monitor for ongoing anemia. Continue renal diet and fluid restriction. Thank you for allowing me to care for pt. Feel free to reach out with any questions or concerns Pipe Soto MD [facility] [place] [phone] Orthopedic Surgery Progress Note The following x-rays were ordered and subsequently completed. My interpretation is as follows: Left shoulder XR (12/13/24): no acute fracture or dislocation. Moderate degenerative changes of the left glenohumeral joint appreciated Radiology reports to be reviewed. Orthopaedic surgery will follow for MRI completion and update plan as indicated. Please page skilled nursing professional orthopaedic resident for questions or concerns. Images from the original note were not included. PHYSICAL THERAPY [facility] Name/MRN: Apoorva Gonzalez ([id number]) Date: 12/13/2024 Plans for MRI with sedation, also has pending shoulder x-rays. Will continue to hold and assess at a later time as able. Guilherme Tavares PT [facility] Geriatric Medicine Inpatient Consult Service Admission Date: 12/08/2024 Assessment Principal Problem: Fall, initial encounter Active Problems: Fall (on)(from) sidewalk curb, initial encounter Plan Acute Encephalopathy --Hypoactive at time of visit, follows simple commands. Appears to be slightly more comfortable than days prior --Etiology unclear. Likely multifactorial related to concern for infection (WBC elevated), pain, hospitalization, medication effects, electrolyte abnormalities ( received HD yesterday), reduced PO intake --Continue to treat acute/underlying illness per primary service. Continued on cefepime IV. Blood cultures with NGTD. ID consult pending. --Repeat CT head 12/11 with no acute findings and after fall on 12/12 CT head with no acute intracranial abnormalities --MRI c-spine unable to tolerate. Agree with plan for sedated MRI. Recommend completion of MRI brain at this time. Concern with waiting until Wednesday for imaging. Consider scheduling sooner if able. --Will order TSH, vitamin B12, and ammonia --Encourage PO intake, time up in chair, family visits, supervised ambulation, and sleep hygiene --If agitated, assess for and consider treating for pain --QTc= None on admission, Qtc 458 on 11/01/24 --No antipsychotic unless patient is danger to self/others/treatment --Would avoid benzodiazepines in this older adult patient as this drug class increases risk of falls and confusion along with other potentially negative side effects which would outweigh any theoretical benefit. --Will adjust scheduled melatonin to PRN at HS for insomnia --Monitor for constipation/urinary retention - last BM 12/12, will order bladder scan to ensure she is not retaining urine --Possible medication contributions: PRN narcotics ?cefepime-Consider ID consult for additional recommendations for antibiotic management. Consider adjusting to alternative antibiotic if able due to altered mentation. Sertraline- will discontinued as below Fall Declining functional status --Related to physical deconditioning, multiple hospitalizations, ESRD, seizure history --Unwitnessed fall on admission on 12/12/24 --Await PT/OT eval --Anticipate d/c to [facility], anticipate return to [facility] --Vitamin D 60 --Check orthostatic vital signs as able --Palliative care following --Will consult chocolate packer Acute pain due to trauma -Management per primary service -Agree with scheduled tylenol (1000 mg q 8 hours) unless otherwise contraindicated. Recommend adjusting to 1000 mg PO TID after checking CMP -If narcotics are required recommend using lowest effective dose of oral narcotic as needed for breakthrough pain. -Continue lidocaine patch -Optimize nonpharmacologic pain treatment modalities. -Ensure that bowel regimen is in place while on narcotic regimen. Constipation -Chronic, recurrent problem -Management per primary service -Last documented BM 12/12 -Agree with MiraLAX as needed, goal is soft BM no less than every 3 days. Anxiety -Management per primary service -Will stop sertraline as started on admission and could possible contribute to encephalopathy -Can continue pregabalin 25 mg daily PRN anxiety as this can help with pain/mood. Would not increase dose any higher due to CrCl Polypharmacy Medications reviewed with geriatric pharmacist with recommendations as below: -Consider checking levetiracetam level prior to next dose (should be a trough level) to rule out concern for toxicity. Concern that levetiracetam could be contributing to encephalopathy especially with intermittent missed hemodialysis sessions. -As a new medication with LEGAL TRANSCRIBER activity, sertraline may be a contributor to encephalopathy. Will discontinue at this time. - With poor PO intake and AMS, recommend changing PO thiamine to thiamine 500 mg in 100 mL NS or D5W IV three times daily for 2-7 days, then thiamine 250 mg in 100 mL NS or D5W IV daily for 3-5 days, then return to PO regimen. Plan discussed with RN, geriatric pharmacist, and nephrology MILLINERY DEPARTMENT MANAGER. Follow-up: will follow with you Subjective Chief Complaint: fall Geriatrics consulted for fall HPI- The patient is known to me. 74 y.o. year-old female admitted to acute care from [facility] for fall on 12/08. Patient reportedly fell backwards and hit the back of her head on pavement, no loss of consciousness. Head CT in the emergency department did not show any acute intracranial findings, concerning for discitis. Diagnosed with anemia and concern for discitis. Started on empiric antibiotics and MRI c-spine pending. Hospital stay complicated by delirium. Unable to obtain MRI after multiple attempts. Interval History: Remains on 6W. Seen by ortho yesterday with awaiting results of MRI. Patient had a unwitnessed fall overnight. GARMENT ALTERATION EXAMINER called and CT head with no acute intracranial abnormalities. hazardous material specialist placed at bedside. Labs reviewed with sodium 134, BUN 22, creatinine 3.82, glucose 47, WBC 16.5, hemoglobin 8.0. Received PRN oxycodone 5 mg 4 times yesterday and PRN pregabalin once yesterday. Plan for MRI with sedation per primary team progress note. Patient resting in bed with unlabored respirations. Patient opens eyes to voice. Moans in response to questions. Patient able to squeeze hands and wiggle her toes to commands. Does not answer questions at this time. Appears to be more comfortable than yesterday. Spoke to public safety dispatcher at bedside with patient moaning. She has not eaten any breakfast. Review of Systems Unable to perform ROS: Mental status change Objective BP 151/76 Pulse 91 Temp 36.9 C (98.5 F) (Temporal) Resp 18 Ht 5' 4.57 (1.64 m) Wt 116 lb 4.8 oz (52.8 kg) SpO2 97% BMI 19.61 kg/m Intake/Output Summary (Last 24 hours) at 12/13/2024 1524 Last data filed at 12/13/2024 1448 Gross per 24 hour Intake 1485 ml Output -- Net 1485 ml Wt Readings from Last 3 Encounters: 12/11/24 116 lb 4.8 oz (52.8 kg) 12/06/24 103 lb (46.7 kg) 11/27/24 103 lb (46.7 kg) Current Medications[1] Physical Exam Vitals and nursing note reviewed. Constitutional: No acute distress, well-nourished, well kempt Psych: Mood and affect Lethargic. Poor eye contact. Cardiovascular: Regular rate and rhythm, + BLE edema Pulmonary/Chest: Clear to auscultation anterior only, normal respiratory effort, no coughing noted Abdominal: Soft, not distended, no tenderness to palpation, BS present, Neurological: somnolent but wakes to stimuli and follows some simple commands, inattentive, speech is unclear , disoriented, follows some simple commands, Skin: warm and dry, no visible rashes or wounds Labs and Imaging: Recent Results (from the past 24 hours) POCT glucose meter Collection Time: 12/12/24 10:25 PM Result Value Ref Range Glucose 63 (L) 70 - 100 mg/dL POCT glucose meter Collection Time: 12/12/24 10:46 PM Result Value Ref Range Glucose 117 (H) 70 - 100 mg/dL Vancomycin, random Collection Time: 12/13/24 12:45 AM Result Value Ref Range VANCOMYCIN 15.4 ug/mL CBC Collection Time: 12/13/24 12:45 AM Result Value Ref Range Auto WBC 16.5 (H) 3.6 - 10.7 10*3/uL RBC 2.75 (L) 3.80 - 5.20 10*6/uL Hemoglobin 8.0 (L) 11.7 - 16.0 g/dL Hematocrit 25.3 (L) 35.0 - 47.0 % MCV 92.0 77.0 - 99.0 fL MCH 29.1 26.0 - 34.0 pg MCHC 31.6 30.5 - 36.0 % RDW 17.6 (H) 11.5 - 15.0 % Platelets 312 140 - 440 10*3/uL MPV 10.5 9.0 - 12.7 fL Basic metabolic panel Collection Time: 12/13/24 12:45 AM Result Value Ref Range SODIUM 134 (L) 136 - 145 mmol/L POTASSIUM 4.2 3.5 - 5.1 mmol/L CHLORIDE 100 98 - 107 mmol/L CARBON DIOXIDE 25 23 - 31 mmol/L UREA NITROGEN 22 9 - 23 mg/dL CREATININE 3.82 (H) 0.57 - 1.11 mg/dL GLUCOSE 47 (LL) 82 - 115 mg/dL CALCIUM 7.8 (L) 8.8 - 10.0 mg/dL ANION GAP 9 3 - 13 mmol/L eGFR 11.9 (L) >60.0 mL/min/1.73m*2 C-reactive protein Collection Time: 12/13/24 12:45 AM Result Value Ref Range C REACTIVE PROTEIN 133.0 (H) <5.0 mg/L POCT glucose meter Collection Time: 12/13/24 1:59 AM Result Value Ref Range Glucose 55 (L) 70 - 100 mg/dL POCT glucose meter Collection Time: 12/13/24 2:53 AM Result Value Ref Range Glucose 78 70 - 100 mg/dL POCT glucose meter Collection Time: 12/13/24 9:24 AM Result Value Ref Range Glucose 105 (H) 70 - 100 mg/dL Lab Results Component Value Date TSH 3.30 09/14/2024 Lab Results Component Value Date [id number] >2,000 (H) 09/14/2024 Lab Results Component Value Date VITD25 60 (H) 12/11/2024 Reviewed: allergies, imaging, active problem lists, medications, and labs [1] Current Facility-Administered Medications: acetaminophen (Tylenol) tablet 650 mg, 650 mg, Oral, q4h PRN OR Acetaminophen (Tylenol) 650 MG/20.3ML solution 650 mg, 650 mg, Oral, q4h PRN OR acetaminophen (Tylenol) suppository 650 mg, 650 mg, Rectal, q4h PRN, Radha Kuzmin, DO acetaminophen (Tylenol) tablet 1,000 mg, 1,000 mg, Oral, q8h, Radha Kuzmin, DO, 1,000 mg at 12/13/24 0537 amLODIPine (Norvasc) tablet 10 mg, 10 mg, Oral, Daily, Radha Kuzmin, DO, 10 mg at 12/13/24 09 atorvastatin (Lipitor) tablet 40 mg, 40 mg, Oral, Nightly, John Victor Manuel Pentz, DO, 40 mg at 12/12/246 B complex-vitamin C-folic acid (Nephrocaps) capsule 1 capsule, 1 capsule, Oral, Daily, John Stuartz, DO, 1 capsule at 12/13/24 0911 cefepime (Maxipime) 1,000 mg in sodium chloride 0.9 % 50 mL IVPB, 1,000 mg, IntraVENous, q12h, Jacob Laguna DO, Stopped at 12/13/24 1329 cholecalciferol (Vitamin D-3) tablet 5,000 Units, 5,000 Units, Oral, Daily, John Benitez Rishi, DO, 5,000 Units at 12/13/24 0912 dextrose 5 % infusion, 100 mL/hr, IntraVENous, PRN, Ramonita Garnett NP, Last Rate: 100 mL/hr at 12/13/24 1448, 100 mL/hr at 12/13/24 1448 dextrose 50 % solution 12.5 g, 12.5 g, IntraVENous, PRN, Ramonita Garnett NP, 12.5 g at 12/12/24 2230 gadopiclenol (Vueway) injection 5 mL, 5 mL, IntraVENous, Once PRN, Radha Kevin DO glucagon (human recombinant) injection 1 mg, 1 mg, IntraMUSCular, PRN, Ramonita Garnett NP glucose oral gel 15 g, 15 g, Oral, PRN, Ramonita Garnett NP heparin injection 1,200-2,000 Units, 1,200-2,000 Units, IntraCATHeter, PRN, Jose G Alysha Alcaladehsarai, DO, 2,100 Units at 12/12/24 1758 heparin injection 1,200-2,000 Units, 1,200-2,000 Units, IntraCATHeter, PRN, Jose G P Fredrickdehsarai, DO, 2,000 Units at 12/12/24 1758 heparin injection 5,000 Units, 5,000 Units, SubCUTAneous, 3 times per day, Leticia Leonardo DO, 5,000 Units at 12/13/24 1340 hydrALAZINE (Apresoline) injection 10 mg, 10 mg, IntraVENous, q4h PRN, Radha Kevin DO, 10 mg at 12/09/24 1521 HYDROmorphone (Dilaudid) injection 0.25 mg, 0.25 mg, IntraVENous, q4h PRN, Chris Verdugo MD, 0.25 mg at 12/13/24 1341 labetalol (Normodyne,Trandate) injection 10 mg, 10 mg, IntraVENous, q6h PRN, Radha Beltranzmin, DO, 10 mg at 12/11/241999 levETIRAcetam (Keppra) tablet 500 mg, 500 mg, Oral, Daily, John Benitez Pentz, DO, 500 mg at 12/13/24 0912 Lidocaine 4 % patch 1 patch, 1 patch, TransDERmal, Daily, Radha Paredsemin, DO melatonin tablet 5 mg, 5 mg, Oral, Nightly PRN, Eileen Duncan, RADIATION ONCOLOGIST - AGENCY TRAINER naloxone (Narcan) injection 0.4 mg, 0.4 mg, IntraVENous, q5 min PRN, Radha Paredesmin, DO ondansetron ODT (Zofran-ODT) disintegrating tablet 4 mg, 4 mg, Oral, q8h PRN OR ondansetron (Zofran) injection 4 mg, 4 mg, IntraVENous, q6h PRN, John Stuartz, DO oxyCODONE (Roxicodone) immediate release tablet 2.5 mg, 2.5 mg, Oral, q4h PRN, Radha Beltranzmin, DO oxyCODONE (Roxicodone) immediate release tablet 5 mg, 5 mg, Oral, q4h PRN, Radha Beltranzmin, DO, 5 mg at 12/11/24 2250 polyethylene glycol (PEG) 3350 (Miralax) packet 17 g, 17 g, Oral, Daily PRN, John Benitez Pentz, DO, 17 g at 12/10/24 1204 pregabalin (Lyrica) capsule 25 mg, 25 mg, Oral, BID PRN, Radha Beltranzmin, DO, 25 mg at 12/11/24 1052 sevelamer carbonate (Renvela) tablet 800 mg, 800 mg, Oral, TID WC, John Benitez Pentz, DO, 800 mg at 12/13/24 0912 sodium chloride 0.9 % infusion, 250 mL/hr, IntraVENous, PRN, John Benitez Pentz, DO sodium chloride 0.9 % infusion, 5-250 mL/hr, IntraVENous, PRN, John Benitez Pentz, DO sodium chloride 0.9% (NS) flush 5-40 mL, 5-40 mL, IntraVENous, q12h, John Shepherd, DO, 10 mL at 12/12/24 0443 sodium chloride 0.9% (NS) flush 5-40 mL, 5-40 mL, IntraVENous, PRN, John Shepherd DO stomahesive in petrolatum (ET Mix), , Topical, 3 times per day, PARK Colin CNP stomahesive in petrolatum (ET Mix), , Topical, PRN, PARK Colin CNP thiamine (Vitamin B1) tablet 250 mg, 250 mg, Oral, Daily, John Shepherd DO, 250 mg at 12/13/24 0912 vancomycin (Vancocin) intermittent dosing (placeholder), , Other, RX Placeholder, Radha Kevin DO To schedule mri with sedation please call [phone] Images from the original note were not included. OCCUPATIONAL THERAPY [facility] Name/MRN: Apoorva Gonzalez ([id number]) Date: 12/12/2024 Attempt Note Attempted OT eval. Awaiting results of C-spine MRI. ~Jelly Gleason MS, OTR/L [facility] Geriatric Medicine Inpatient Consult Service Admission Date: 12/08/2024 Assessment Principal Problem: Fall, initial encounter Active Problems: Fall (on)(from) sidewalk curb, initial encounter Plan Acute Encephalopathy --Hypoactive at time of visit, follows simple commands --Etiology likely multifactorial related to concern for infection (WBC elevated but improving today), pain, hospitalization, medication effects, electrolyte abnormalities (missed HD yesterday) --Continue to treat acute/underlying illness per primary service. Continued on cefepime IV. Blood cultures pending --Repeat CT head 12/11 with no acute findings --MRI c-spine pending --Encourage PO intake, time up in chair, family visits, supervised ambulation, and sleep hygiene --If agitated, assess for and consider treating for pain --QTc= None on admission, Qtc 458 on 11/01/24 --No antipsychotic unless patient is danger to self/others/treatment --Would avoid benzodiazepines in this older adult patient as this drug class increases risk of falls and confusion along with other potentially negative side effects which would outweigh any theoretical benefit. --Continue scheduled melatonin at HS --Monitor for constipation/urinary retention - last BM 12/11 --Possible medication contributions: PRN narcotics ?cefepime-Consider ID consult for additional recommendations for antibiotic management. Consider adjusting to alternative antibiotic if able due to altered mentation. Fall Declining functional status --Related to physical deconditioning, multiple hospitalizations, ESRD, seizure history --Await PT/OT eval --Anticipate d/c to [facility], anticipate return to [facility] --Vitamin D 60 --Check orthostatic vital signs as able Acute pain due to trauma -Management per primary service -Agree with scheduled tylenol (1000 mg q 8 hours) unless otherwise contraindicated. -If narcotics are required recommend using lowest effective dose of oral narcotic as needed for breakthrough pain. -Continue lidocaine patch -Optimize nonpharmacologic pain treatment modalities. -Ensure that bowel regimen is in place while on narcotic regimen. Constipation -Chronic, recurrent problem -Management per primary service -Last documented BM 12/11 -Agree with MiraLAX as needed, goal is soft BM no less than every 3 days. Anxiety -Management per primary service -Agree with sertraline 25 mg daily -Can consider trial of pregabalin 25 mg daily PRN anxiety as this can help with pain/mood. Would not increase dose any higher due to CrCl Plan discussed with RN and nephrology MILLINERY DEPARTMENT MANAGER. Follow-up: will follow with you Subjective Chief Complaint: fall Geriatrics consulted for fall HPI- The patient is known to me. 74 y.o. year-old female admitted to acute care from [facility] for fall on 12/08. Patient reportedly fell backwards and hit the back of her head on pavement, no loss of consciousness. Head CT in the emergency department did not show any acute intracranial findings, concerning for discitis. Diagnosed with anemia and concern for discitis. Started on empiric antibiotics and MRI c-spine pending. Interval History: Remains on 6W. Unable to obtain blood cultures yesterday evening. Labs reviewed with sodium 137, BUN 38, creatinine 5.60, WBC 11.5, hemoglobin 8.0. lactic acid 0.6. CT head with no acute findings. Blood cultures obtained this morning. Received PRN oxycodone 5 mg 4 times yesterday and PRN pregabalin once yesterday. Patient resting in bed in no acute distress. Patient opens eyes to voice. Moans in response to questions. Patient able to squeeze hands to commands. Does not answer questions at this time. Spoke to RN. Patient cooperative with some of her medications this morning. Plan to attempt MRI with HD after. Spoke to Nephrology MILLINERY DEPARTMENT MANAGER due to mentation concerns and missed HD. Plan for HD today per Karis Stone. Review of Systems Unable to perform ROS: Mental status change Objective BP 149/85 Pulse 94 Temp 36 C (96.8 F) (Temporal) Resp 18 Ht 5' 4.57 (1.64 m) Wt 116 lb 4.8 oz (52.8 kg) SpO2 100% BMI 19.61 kg/m Intake/Output Summary (Last 24 hours) at 12/12/2024 1449 Last data filed at 12/11/2024 1613 Gross per 24 hour Intake 0 ml Output -- Net 0 ml Wt Readings from Last 3 Encounters: 12/11/24 116 lb 4.8 oz (52.8 kg) 12/06/24 103 lb (46.7 kg) 11/27/24 103 lb (46.7 kg) Current Medications[1] Physical Exam Vitals and nursing note reviewed. Constitutional: No acute distress, well-nourished, well kempt Psych: Mood and affect Lethargic. Fair eye contact. Cardiovascular: Regular rate and rhythm, + BLE edema Pulmonary/Chest: Clear to auscultation anterior only, normal respiratory effort, no coughing noted Abdominal: Soft, not distended, no tenderness to palpation, BS present, Neurological: somnolent but wakes to stimuli and follows some simple commands, inattentive, speech is unclear , disoriented, follows some simple commands, Skin: warm and dry, no visible rashes or wounds Labs and Imaging: Recent Results (from the past 24 hours) POCT glucose meter Collection Time: 12/11/24 7:22 PM Result Value Ref Range Glucose 95 70 - 100 mg/dL ECG 12 lead Collection Time: 12/11/24 8:01 PM Result Value Ref Range Heart Rate 94 bpm QRSD Interval 72 ms QT Interval 360 ms QTC Interval 451 ms P [place] 61 degrees QRS [place] 20 degrees T Wave [place] 19 degrees UT Interval 121 ms Blood Gas, Arterial Collection Time: 12/11/24 8:30 PM Result Value Ref Range pH, Arterial 7.462 (H) 7.350 - 7.450 pCO2, Arterial 39.5 >35.0 - <45.0 mm Hg pO2, Arterial 51.0 (L) 80.0 - 100.0 mm Hg HCO3, Arterial 27.6 (H) 21.0 - 25.0 mmol/L O2 Sat, Arterial 85.3 (L) 95.0 - 100.0 % Base Excess, Arterial 3.6 (H) -3.0 - 3.0 mmol/L CO2 Total 28.8 (H) 23.0 - 27.0 mmol/L Hgb, blood gas 9.3 Screen only g/dl Source Of Oxygen None (Room Air) Amount Of Oxygen 21 Lactic acid with reflex Collection Time: 12/11/24 8:30 PM Result Value Ref Range LACTIC ACID 0.6 0.5 - 2.2 mmol/L Blood culture Site #1 - Suspected Infection Collection Time: 12/12/24 1:03 AM Specimen: Blood, Venous Result Value Ref Range Blood Culture Blood culture incubation started Blood culture Site #2 - Suspected Infection Collection Time: 12/12/24 1:03 AM Specimen: Blood, Venous Result Value Ref Range Blood Culture Blood culture incubation started CBC auto differential Collection Time: 12/12/24 1:03 AM Result Value Ref Range Auto WBC 11.5 (H) 3.6 - 10.7 10*3/uL RBC 2.69 (L) 3.80 - 5.20 10*6/uL Hemoglobin 8.0 (L) 11.7 - 16.0 g/dL Hematocrit 24.8 (L) 35.0 - 47.0 % MCV 92.2 77.0 - 99.0 fL MCH 29.7 26.0 - 34.0 pg MCHC 32.3 30.5 - 36.0 % RDW 17.8 (H) 11.5 - 15.0 % Platelets 332 140 - 440 10*3/uL MPV 10.7 9.0 - 12.7 fL nRBC 0.0 0.0 - 2.0 /100 WBCs Neutrophils Relative 82.9 (H) 38.0 - 82.0 % Lymphocytes Relative 8.5 (L) 15.0 - 45.0 % Monocytes Relative 4.9 (L) 5.0 - 13.0 % Eosinophils Relative 2.1 0.0 - 6.0 % Basophils Relative 1.2 0.0 - 2.0 % Immature Grans % 0.4 0.0 - 2.0 % Neutrophils Absolute 9.5 (H) 1.8 - 7.5 10*3/uL Lymphocytes Absolute 1.0 1.0 - 4.3 10*3/uL Monocytes Absolute 0.6 0.0 - 0.9 10*3/uL Eosinophils Absolute 0.2 0.0 - 0.5 10*3/uL Basophils Absolute 0.1 0.0 - 0.2 10*3/uL Immature Grans Absolute 0.1 (H) <0.1 10*3/uL Comprehensive metabolic panel Collection Time: 12/12/24 1:03 AM Result Value Ref Range SODIUM 137 136 - 145 mmol/L POTASSIUM 4.1 3.5 - 5.1 mmol/L CHLORIDE 100 98 - 107 mmol/L CARBON DIOXIDE 26 23 - 31 mmol/L ANION GAP 11 3 - 13 mmol/L UREA NITROGEN 38 (H) 9 - 23 mg/dL CREATININE 5.60 (H) 0.57 - 1.11 mg/dL GLUCOSE 77 (L) 82 - 115 mg/dL CALCIUM 7.8 (L) 8.8 - 10.0 mg/dL AST (SGOT) 36 (H) <34 U/L ALT 10 <30 U/L ALKALINE PHOSPHATASE 131 40 - 150 U/L ALBUMIN 1.4 (L) 3.4 - 4.8 g/dL BILIRUBIN, TOTAL 0.4 <1.2 mg/dL TOTAL PROTEIN 6.1 (L) 6.4 - 8.3 g/dL eGFR 7.5 (L) >60.0 mL/min/1.73m*2 POCT glucose meter Collection Time: 12/12/24 7:51 AM Result Value Ref Range Glucose 72 70 - 100 mg/dL Lab Results Component Value Date TSH 3.30 09/14/2024 Lab Results Component Value Date [id number] >2,000 (H) 09/14/2024 Lab Results Component Value Date VITD25 60 (H) 12/11/2024 Reviewed: allergies, imaging, active problem lists, medications, and labs [1] Current Facility-Administered Medications: acetaminophen (Tylenol) tablet 650 mg, 650 mg, Oral, q4h PRN OR Acetaminophen (Tylenol) 650 MG/20.3ML solution 650 mg, 650 mg, Oral, q4h PRN OR acetaminophen (Tylenol) suppository 650 mg, 650 mg, Rectal, q4h PRN, Radha Kevin, DO acetaminophen (Tylenol) tablet 1,000 mg, 1,000 mg, Oral, q8h, Radha Kevin DO, 1,000 mg at 12/12/24 0443 amLODIPine (Norvasc) tablet 10 mg, 10 mg, Oral, Daily, Radha Kevin DO, 10 mg at 12/12/24 0857 atorvastatin (Lipitor) tablet 40 mg, 40 mg, Oral, Nightly, John Shepherd DO, 40 mg at 12/10/24 2124 B complex-vitamin C-folic acid (Nephrocaps) capsule 1 capsule, 1 capsule, Oral, Daily, John Shepherd DO, 1 capsule at 12/11/24 0813 cefepime (Maxipime) 1,000 mg in sodium chloride 0.9 % 50 mL IVPB, 1,000 mg, IntraVENous, q12h, Jacob Laguna DO, Stopped at 12/12/24 1406 cholecalciferol (Vitamin D-3) tablet 5,000 Units, 5,000 Units, Oral, Daily, John Shepherd DO, 5,000 Units at 12/11/24 0813 gadopiclenol (Vueway) injection 5 mL, 5 mL, IntraVENous, Once PRN, Radha Kevin DO hydrALAZINE (Apresoline) injection 10 mg, 10 mg, IntraVENous, q4h PRN, Radha Kuzmin, DO, 10 mg at 12/09/24 1521 labetalol (Normodyne,Trandate) injection 10 mg, 10 mg, IntraVENous, q6h PRN, Radha Devinzmin, DO, 10 mg at 12/11/241999 levETIRAcetam (Keppra) tablet 500 mg, 500 mg, Oral, Daily, John Benitez Pentz, DO, 500 mg at 12/12/24 0857 Lidocaine 4 % patch 1 patch, 1 patch, TransDERmal, Daily, Radha Beltranzmin, DO melatonin tablet 5 mg, 5 mg, Oral, Nightly, John Benitez Pentz, DO, 5 mg at 12/10/24 2124 naloxone (Narcan) injection 0.4 mg, 0.4 mg, IntraVENous, q5 min PRN, Radha Paredesmin, DO ondansetron ODT (Zofran-ODT) disintegrating tablet 4 mg, 4 mg, Oral, q8h PRN OR ondansetron (Zofran) injection 4 mg, 4 mg, IntraVENous, q6h PRN, John Benitez Pentz, DO oxyCODONE (Roxicodone) immediate release tablet 2.5 mg, 2.5 mg, Oral, q4h PRN, Radha Beltranzmin, DO oxyCODONE (Roxicodone) immediate release tablet 5 mg, 5 mg, Oral, q4h PRN, Radha Beltranzmin, DO, 5 mg at 12/11/24 2250 polyethylene glycol (PEG) 3350 (Miralax) packet 17 g, 17 g, Oral, Daily PRN, John Benitez Pentz, DO, 17 g at 12/10/24 1204 pregabalin (Lyrica) capsule 25 mg, 25 mg, Oral, BID PRN, Radhajacquelyn Beltranzmin, DO, 25 mg at 12/11/24 1052 sertraline (Zoloft) tablet 25 mg, 25 mg, Oral, Daily, Radha Devinzmin, DO, 25 mg at 12/12/24 0856 sevelamer carbonate (Renvela) tablet 800 mg, 800 mg, Oral, TID WC, John Benitez Pentz, DO, 800 mg at 12/11/24 1805 sodium chloride 0.9 % infusion, 250 mL/hr, IntraVENous, PRN, John Victor Manuel Pentz, DO sodium chloride 0.9 % infusion, 5-250 mL/hr, IntraVENous, PRN, John Victor Manuel Pentz, DO sodium chloride 0.9% (NS) flush 5-40 mL, 5-40 mL, IntraVENous, q12h, John Victor Manuel Pentz, DO, 10 mL at 12/12/24 0443 sodium chloride 0.9% (NS) flush 5-40 mL, 5-40 mL, IntraVENous, PRN, John Victor Manuel Pentz, DO thiamine (Vitamin B1) tablet 250 mg, 250 mg, Oral, Daily, John Victor Manuel Pentz, DO, 250 mg at 12/11/24 0813 vancomycin (Vancocin) intermittent dosing (placeholder), , Other, RX Placeholder, Radha Kevin DO Hospitalist Progress Note 12/12/2024 Subjective: Admit Date: 12/08/2024 PCP: Roxie Spain Room#: [id number] A BRIEF HOSPITAL COURSE: Per previous hospitalist's note: Apoorva is a 73 y.o. female with past medical history hx seizure ( 2021 a/w HTN encephalopathy) ,ESRD on HD ,AV graft placement (Dr. 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 difficile. She had a complicated year with admissions and infections Presented to ED this time after a mechanical fall while at dinner and L hip pain after the fall Normally she uses a wheelchair but she stood up to try to help her family member and fell backwards hitting her head on the pavement. She did not consciousness. In the emergency department, patient was hypertensive and mildly tachycardic but other vital signs were stable. Chemistry profile revealed hyponatremia at 135, hypokalemia at 2.6, hypochloremia at 94, creatinine of 3.05. Calcium 8.1. Alk phos 166, albumin 1.6, AST 46. She has a small leukocytosis with a WBC count of 11.2. Her hemoglobin is low at 6.9. She does have a mild left shift. -CT head/cervical spine completed shows endplate erosive changes at the C3/C4 intervertebral disc. No acute intracranial findings In the ER patient was given 40 mEq of potassium, vancomycin and cefepime for broad-spectrum coverage And admitted to observation for nephrology review regarding her electrolyte abnormalities, MRI of the cervical spine to rule out discitis prior to discharge, and blood transfusion. 12/09: No overnight issues. Going to MRI today with plan for HD afterwards . Unfortunately unable to tolerate d/t anxiety, but going to try again with ativan on board later today 12/10:Pain meds have been adjusted This am reports having pain everywhere Says wants to go home when she is ready On 12/11 daughter noted not answering questions and appearing uncomfortable. Interval History: Patient seen and examined. Chart reviewed. No overnight issues. Patient unable to provide ROS just opens her eyes and moans. No family at bedside. Message later in the day that patient on send notable to tolerate MRI. Case and plan discussed with patient and bedside nurse. All questions answered. Adult diet Regular 24HR INTAKE/OUTPUT: Intake/Output Summary (Last 24 hours) at 12/12/2024 1348 Last data filed at 12/11/2024 1613 Gross per 24 hour Intake 0 ml Output -- Net 0 ml Past Medical History: Medical History[1] LABS: CBC: Recent Labs 12/10/2454112/11/2422412/11/24202912/12/24 0103 WBC 10.2 12.1* -- 11.5* RBC 2.51* 2.57* -- 2.69* HGB 7.3* 7.7* 9.3 8.0* HCT 23.2* 23.6* -- 24.8* MCV 92.4 91.8 -- 92.2 RDW 18.6* 18.3* -- 17.8* PLT 293 300 -- 332 BMP: Recent Labs 12/10/24 0542 12/11/2422412/12/24 010 NA 135* 138 137 K 3.4* 3.7 4.1 CL 99 100 100 CO2 26 27 26 BUN 25* 32* 38* CREATININE 4.24* 4.96* 5.60* GLUCOSE 74* 74* 77* CALCIUM 7.5* 8.0* 7.8* ANIONGAP 10 11 11 LIVER PROFILE: Recent Labs 12/10/24 0542 12/11/24 0225 12/12/24 0103 AST 36* 41* 36* ALT 11 13 10 BILITOT 0.4 0.4 0.4 ALKPHOS 125 149 131 PROT 5.7* 6.5 6.1* PT/INR: No results for input(s): PROTIME, INR in the last 72 hours. CARDIAC ENZYMES: No results for input(s): TROPONINI in the last 72 hours. Procalcitonin: No results found for: PROCAL COVID-19 PCR: No results for input(s): COVID19 in the last 72 hours. Objective: Vitals: BP 149/85 Pulse 94 Temp 36 C (96.8 F) (Temporal) Resp 18 Ht 5' 4.57 (1.64 m) Wt 116 lb 4.8 oz (52.8 kg) SpO2 100% BMI 19.61 kg/m Pulse Ox: SpO2 Av % Min: 92 % Max: 100 % Supplemental O2: Physical Exam Constitutional: General: She is not in acute distress. Appearance: She is ill-appearing. Comments: Moans in pain with any attempt to move HENT: Head: Normocephalic and atraumatic. Mouth/Throat: Mouth: Mucous membranes are moist. Eyes: Extraocular Movements: Extraocular movements intact. Conjunctiva/sclera: Conjunctivae normal. Cardiovascular: Rate and Rhythm: Normal rate and regular rhythm. Pulmonary: Effort: Pulmonary effort is normal. Breath sounds: Normal breath sounds. Abdominal: General: There is no distension. Palpations: Abdomen is soft. Tenderness: There is no abdominal tenderness. Musculoskeletal: General: No swelling. Skin: General: Skin is warm and dry. Neurological: General: No focal deficit present. Mental Status: She is alert. She is disoriented. Comments: +globally weak Medications: Scheduled PRN Scheduled Meds[2] PRN Meds[3] Continuous Continuous Meds[4] Assessment Plan Sepsis-on antibiotic -Confusion may be related to cefepime -Continue IV Vanco -Recent fistula infection -CT head from yesterday shows no acute process -Consult ID -May need MRI of the brain and C-spine under sedation - consult ortho spine - consult palliative care for GOC Acute metabolic encephalopathy Mechanical fall -Seen by geriatrics Anemia-acute on chronic - no signs of active bleeding ESRD on hemodialysis -To undergo dialysis today -Nephrology following - fluid overload on CXR, receiving dialysis today Hypertensive urgency -As needed labetalol Seizure disorder -Continue home Keppra Left hip pain -X-rays with no acute abnormality Hypokalemia Hyponatremia - resolved Advance Directive: DNR-CCA Anticipated Discharge - Date - DC Home 12/13 Extended Emergency Contact Information Primary Emergency Contact: Deshawn Crystal Mobile Relation: Brother Technical Coordinator needed? No Secondary Emergency Contact: Edward Ruggiero Mobile Relation: Significant Other Preferred language: Cambodian Technical Coordinator needed? No Leticia Leonardo DO Division of Hospitalist Medicine [facility] [1] Past Medical History: Diagnosis Date Chronic kidney disease (CKD) Hemodialysis patient (CMS/HCC) (HCC) Wednesday, , Wednesday History of blood transfusion 02/27/2022 Hypertension Seizure (HCC) Developed seizure-like activity on 02/24 during hospital admission [2] acetaminophen, 1,000 mg, Oral, q8h amLODIPine, 10 mg, Oral, Daily atorvastatin, 40 mg, Oral, Nightly B complex-vitamin C-folic acid, 1 capsule, Oral, Daily cefepime, 1,000 mg, IntraVENous, q12h cholecalciferol, 5,000 Units, Oral, Daily levETIRAcetam, 500 mg, Oral, Daily Lidocaine, 1 patch, TransDERmal, Daily melatonin, 5 mg, Oral, Nightly sertraline, 25 mg, Oral, Daily sevelamer carbonate, 800 mg, Oral, TID WC sodium chloride 0.9%, 5-40 mL, IntraVENous, q12h vitamin B-1, 250 mg, Oral, Daily vancomycin (Vancocin) intermittent dosing (placeholder), , Other, RX Placeholder [3] PRN medications: acetaminophen OR acetaminophen OR acetaminophen, gadopiclenol, hydrALAZINE, labetalol, naloxone, ondansetron ODT OR ondansetron, oxyCODONE, oxyCODONE, polyethylene glycol (PEG) 3350, pregabalin, sodium chloride, sodium chloride, sodium chloride 0.9% [4] Images from the original note were not included. PHYSICAL THERAPY [facility] Name/MRN: Apoorva Gonzalez ([id number]) Date: 12/12/2024 Pt with pending MRI noted to be incomplete this date d/t pt inability to hold still. Will follow for plan with MRI and continue to hold at this time. Guilherme Tavares PT Nephrology Progress Note Following for ESRD Pt seen in room confused Unable to have MRI unable to hold still Current Inpatient Medications: Reviewed on JUN. Vitals: BP 149/85 Pulse 94 Temp 36 C (96.8 F) (Temporal) Resp 18 Ht 1.64 m (5' 4.57) Wt 52.8 kg (116 lb 4.8 oz) SpO2 100% BMI 19.61 kg/m BLOOD PRESSURE RANGE: Systolic (24hrs), Av , Min:140 , Max:183 ; Diastolic (24hrs), Av, Min:79, Max:94 24HR INTAKE/OUTPUT: Intake/Output Summary (Last 24 hours) at 12/12/2024 1204 Last data filed at 12/11/2024 1613 Gross per 24 hour Intake 0 ml Output -- Net 0 ml Physical exam: Constitutional: confused Cardiovascular: Normal S1, S2 without m/r/g Respiratory: CTAB without w/r/r Abdomen: +bs, soft, nt, nd Ext: ++ lower extremity edema Data: Labs: Recent Labs 12/10/24 0542 12/11/24 0225 12/11/24 2030 12/12/24 0103 WBC 10.2 12.1* -- 11.5* HGB 7.3* 7.7* 9.3 8.0* HCT 23.2* 23.6* -- 24.8* MCV 92.4 91.8 -- 92.2 PLT 293 300 -- 332 Recent Labs 12/10/24 0542 12/11/24 0225 12/12/24 0103 NA 135* 138 137 K 3.4* 3.7 4.1 CL 99 100 100 CO2 26 27 26 GLUCOSE 74* 74* 77* CALCIUM 7.5* 8.0* 7.8* MG 1.8 -- -- BUN 25* 32* 38* CREATININE 4.24* 4.96* 5.60* Assessment and Plan: 74 yo female pmhx of ESRD on MWF HD presented after fall. Nephrology following for ESRD ESRD Continue MWF Volume + expansion on exam Bp stable Electrolytes stable MBD Phos 1.7 Ca 8.0 Not on binders ok to replace phos Plan Hd today Monitor Volume status electrolytes cbc daily Continue to monitor BMP and electrolytes daily; replace K, Ca, Mg as needed. Transfuse PRBCs for Hgb < 7.0 g/dL; monitor for ongoing anemia. Continue renal diet and fluid restriction. Thank you for allowing me to care for pt. Feel free to reach out with any questions or concerns Pipe Soto MD [facility] [place] [phone] MRI attempted again; pt. Unable to tolerate exam. Pt. Very confused, hitting head on camera, swinging arms and groaning. Too dangerous to leave pt. Alone on scanner due to fear of personal injury to self. MRI aborted. Images from the original note were not included. Pharmacy Managed Vancomycin Dosing Service Progress Note Consult Date: 12/12/24 Patient Name: Apoorva Gonzalez Allergies: Patient has no known allergies. Age: 74 y.o. Sex: female Ht: Height: 164 cm (5' 4.57) TBW: Weight: 52.8 kg (116 lb 4.8 oz) BMI: Body mass index is 19.61 kg/m . Lab Results Component Value Date CREATININE 5.60 (H) 12/12/2024 CREATININE 4.96 (H) 12/11/2024 BUN 38 (H) 12/12/2024 BUN 32 (H) 12/11/2024 WBC 11.5 (H) 12/12/2024 WBC 12.1 (H) 12/11/2024 DW: 52.8 kg Renal: [x]HD []CRRT []PD [] CrCl ml/min (Cockcroft-Gault, if ROLANDO, no GARMENT ALTERATION EXAMINER) - to have HD today (did not do HD on Monday 12/11) Infectious Diagnosis: Bone and Joint Infection (target level = 15 mg/L) Next level due: 4 hours after today's HD Antimicrobials: Patient recently received an antibiotic (last 12 hours) Date/Time Action Medication Dose Rate 12/11/24 2250 New Bag cefepime (Maxipime) 1,000 mg in sodium chloride 0.9 % 50 mL IVPB 1,000 mg 100 mL/hr Assessment/Plan: Intermittent vancomycin dosing (Pulse Dosing). Lab Results Component Value Date VANCOTROUGH 27.2 10/26/2024 VANCORANDOM 19.7 10/24/2024 Give Vancomycin 1000 mg x1 based on patient age, weight, renal status and infectious diagnosis (19 mg/kg). Will adjust dose/frequency if needed according to level. Follow renal status closely. Orders placed. Thank you for this consult. Please page/call with questions. Date: 12/12/24 Time: 8:36 AM Hilda Wilkes RPh (available on [employer]) Images from the original note were not included. OCCUPATIONAL THERAPY [facility] Name/MRN: Apoorva Gonzalez ([id number]) Date: 12/11/2024 OT eval on hold pending MRI c-spine imaging. Will evaluate as appropriate. Leonila Rios OT Hospitalist Progress Note 12/11/2024 Subjective: Admit Date: 12/08/2024 PCP: Roxie Spain Room#: W6-701/W6-539 A Chief Complaint Patient presents with Fall Pt presents to ED for mechanical fall while at dinner. Pt family states pt fell backwards and hit her head and now has lump on head, denies LOC. Denies blood thinners. BRIEF HOSPITAL COURSE: Apoorva is a 73 y.o. female with past medical history hx seizure ( 2021 a/w HTN encephalopathy) ,ESRD on HD ,AV graft placement (Dr. 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 difficile. She had a complicated year with admissions and infections Presented to ED this time after a mechanical fall while at dinner and L hip pain after the fall Normally she uses a wheelchair but she stood up to try to help her family member and fell backwards hitting her head on the pavement. She did not consciousness. In the emergency department, patient was hypertensive and mildly tachycardic but other vital signs were stable. Chemistry profile revealed hyponatremia at 135, hypokalemia at 2.6, hypochloremia at 94, creatinine of 3.05. Calcium 8.1. Alk phos 166, albumin 1.6, AST 46. She has a small leukocytosis with a WBC count of 11.2. Her hemoglobin is low at 6.9. She does have a mild left shift. -CT head/cervical spine completed shows endplate erosive changes at the C3/C4 intervertebral disc. No acute intracranial findings In the ER patient was given 40 mEq of potassium, vancomycin and cefepime for broad-spectrum coverage And admitted to observation for nephrology review regarding her electrolyte abnormalities, MRI of the cervical spine to rule out discitis prior to discharge, and blood transfusion. 12/09: No overnight issues. Going to MRI today with plan for HD afterwards . Unfortunately unable to tolerate d/t anxiety, but going to try again with ativan on board later today 12/10:Pain meds have been adjusted This am reports having pain everywhere Says wants to go home when she is ready Interval History: More anxious today , on my eval sitting in chair with lunch in front of her . Not answering any of my questions , repeating oh lord appears uncomfortable, unable to find a comfortable position in a chair. This evening daughter is visiting - reports noticeable difference in Apoorva as she is not able to answer any of her questions and not eating Case and plan discussed with patient and bedside nurse. All questions answered. Adult diet Regular 24HR INTAKE/OUTPUT: Intake/Output Summary (Last 24 hours) at 12/11/2024 0836 Last data filed at 12/10/2024 1357 Gross per 24 hour Intake 540 ml Output -- Net 540 ml Past Medical History: Medical History[1] LABS: CBC: Recent Labs 12/09/24 10212/10/2454112/11/24224 WBC 9.7 10.2 12.1* RBC 2.56* 2.51* 2.57* HGB 7.6* 7.3* 7.7* HCT 23.5* 23.2* 23.6* MCV 91.8 92.4 91.8 RDW 18.7* 18.6* 18.3* PLT 311 293 300 BMP: Recent Labs 12/09/24 10212/10/24 0512/11/24224 NA 136 135* 138 K 3.1* 3.4* 3.7 CL 96* 99 100 CO2 32* 26 27 BUN 19 25* 32* CREATININE 3.73* 4.24* 4.96* GLUCOSE 79* 74* 74* CALCIUM 7.6* 7.5* 8.0* ANIONGAP 8 10 11 LIVER PROFILE: Recent Labs 12/08/24222812/10/2454112/11/24224 AST 46* 36* 41* ALT 14 11 13 BILITOT 0.4 0.4 0.4 ALKPHOS 166* 125 149 PROT 6.4 5.7* 6.5 PT/INR: No results for input(s): PROTIME, INR in the last 72 hours. CARDIAC ENZYMES: No results for input(s): TROPONINI in the last 72 hours. Procalcitonin: No results found for: PROCAL COVID-19 PCR: No results for input(s): COVID19 in the last 72 hours. Objective: Vitals: BP (!) 143/106 (BP Location: Right arm, Patient Position: Sitting) Pulse (!) 121 Temp 36.7 C (98 F) (Temporal) Resp 16 Ht 5' 4.57 (1.64 m) Wt 111 lb (50.3 kg) SpO2 95% BMI 18.72 kg/m Pulse Ox: SpO2 Av.5 % Min: 95 % Max: 96 % Supplemental O2: Physical Exam Vitals and nursing note reviewed. Constitutional: General: She is not in acute distress. Appearance: She is ill-appearing. Comments: Sitting in chair, fatigued Appears to be uncomfortable , shifts in chair trying to find a comfortable position HENT: Head: Normocephalic and atraumatic. Mouth/Throat: Mouth: Mucous membranes are moist. Eyes: Extraocular Movements: Extraocular movements intact. Cardiovascular: Rate and Rhythm: Normal rate and regular rhythm. Pulmonary: Effort: Pulmonary effort is normal. No respiratory distress. Abdominal: General: Bowel sounds are normal. There is no distension. Tenderness: There is no abdominal tenderness. Musculoskeletal: General: Swelling (BL LE) and tenderness present. Cervical back: Neck supple. Skin: General: Skin is warm and dry. Neurological: Mental Status: She is disoriented. Comments: Generalized weakness Not answering questions, only says oh, Lord to all questions Medications: Scheduled PRN Scheduled Meds[2] PRN Meds[3] Continuous Continuous Meds[4] Assessment Data: (CAT1) Reviewed 2 notes from different specialty or health system (each=1). (CAT1) Reviewed 2 labs/studies ordered by another provider not previously counted (each=1, panels count as 1). (CAT3) Mgmt of the patient was discussed with RN and geriatrics regarding pt's condition, Tx plan , meds (LOW: 2x CAT1 or independent historian MOD: 3x CAT1 or 1x CAT3 EXTENSIVE: 3x CAT1 and 1x CAT3) Acute, acute on chronic, unstable/uncontrolled chronic problems/diagnoses: Acute encephalopathy Meets sepsis criteria - already on abx - last HD was on Wednesday per family - worsening mental state today - recheck head CT, check ABG, EKG, bgt - check BCx - she is on Cefepime, may be side effect of that - > monitor - may be pain meds side effect at well - geriatrics following. Appreciate input Mechanical fall Acute on chronic anemia - s/p 1 unit PRBC in ED - Hg 6.9 -->> 7.3 -> 7.7 - monitor and supplement as needed - geriatrics following, appreciate input - vit D = 60 PT/OT Endplate erosive changes at the C3/C4 intervertebral disc Mild leukocytosis - Rule out discitis - MRI c-spine is pending- unable to complete it on 12/09 - 1st had anxiety and then d/t pain . Needs HD after MRI - attempt MRI tomorrow and HD afterwards - Cefepime/Vanco ordered . Not clear if she has received Vanco -> c/s pharmacy for Vanco dosing Hyponatremia - mild - resolved Hypokalemia - K = 2.6 on presentation ->received 40 mEq + 10 meq PO + 10 meq PO since presentaion - K = 3.7 today -> monitor -caution with repletion in setting of ESRD Left hip pain - s/p fall XR HIP 2 OR 3 VW LEFT Arthroplasties in adequate alignment. No acute abnormality. - lido patch, prn oxycodone 2.5-5 ,scheduled tylenol HTN urgency - prn labetalol and hydralazine Cont home amlodipine -> increased to 10 mg daily - monitor for need to adjust BP regimen Constipation - cont bowel reg + large formed BM 12/11 Stable chronic problems affecting care, new non-acute diagnoses: ESRD on HD - Nephrology consultation for electrolyte/hemodialysis management Seizure disorder - home Keppra to prevent seizures Plan As a result of the above findings & factors, the following mgmt was pursued: - as above SEP-1 CORE MEASURE DATA SIRS Criteria Sepsis Criteria Severe Sepsis Criteria Septic Shock Criteria Must meet 2: [] Temperature > 100.4 F (38 C) or < 96.8 F (36 C) [x] HR > 90 [x] RR > 20 [x] WBC > 12 or < 4 or 10% bands Must be confirmed or suspected to move forward with diagnosis of sepsis. Must select at least one: [x] Bacterial Infection Confirmed or Suspected. [] Viral Infection Confirmed or Suspected. [] Fungal Infection Confirmed or Suspected. [] No infection present. Patient does not meet criteria for Sepsis. Must meet 1: [] Lactate > 2 or [] Signs of Organ Dysfunction: - SBP < 90 or MAP < 65 - Altered mental status - Creatinine > 2 or increased from baseline - Urine Output < 0.5 ml/kg/hr - Bilirubin > 2 - INR > 1.5 - Platelets < 100,000 - Acute Respiratory Failure as evidenced by new need for NIPPV or mechanical ventilation [] No criteria met for Severe Sepsis. Must meet 1: [] Lactate = or > 4 or [] SBP < 90 or MAP < 65 for at least two readings in the first hour after fluid bolus administration [] No criteria met for Septic Shock. Patient Vitals from 12/10/24 2301 to 12/11/24 0000 BP Pulse 12/10/24 2316 (!) 165/92 96 Recent Labs 12/08/24 2229 12/09/24 1023 12/10/24 0542 12/11/24 0225 WBC 11.2* 9.7 10.2 12.1* CREATININE 3.05* 3.73* 4.24* 4.96* BILITOT 0.4 -- 0.4 0.4 PLT 359 311 293 300 Sepsis Identified at 1325 hours. Fluid Resuscitation Rational: Due to renal failure, portion of fluids given in form of antibiotics dilution with rate >125 ml/hr Infection Source: Unknown Reassessment Exam: Not applicable. Patient does not have Septic Shock. Radha Kevin DO - am labs, replace lytes prn - PT/OT/CM/SW - delirium precautions: increase activity and limit nighttime disturbances - DVT prophylaxis: SCDs Complexity: Acute illness or injury posing a threat to life or body function (HIGH). Risk: Use/consideration of a high risk treatment or study: imaging requiring IV contrast or IV sedation (HIGH). Advance Directive: DNR-CCA Anticipated Discharge - Date - tbd - Location - Home with Home Health Care? - Pending the following - clinical course, MRI, therapies eval Total time spent (which include face to face and non face to face encounters) : minutes Toxic drug monitoring/narrow therapeutic index drug monitoring : # Drug name : # Route administered : # Method of monitoring : Extended Emergency Contact Information Primary Emergency Contact: Deshawn Crystal Mobile Relation: Brother Technical Coordinator needed? No Secondary Emergency Contact: Edward Ruggiero Mobile Relation: Significant Other Preferred language: Cambodian Technical Coordinator needed? No Radha Kevin DO Division of Hospitalist Medicine [facility] [1] Past Medical History: Diagnosis Date Chronic kidney disease (CKD) Hemodialysis patient (CMS/HCC) (HCC) Wednesday, , Wednesday History of blood transfusion 02/27/2022 Hypertension Seizure (HCC) Developed seizure-like activity on 02/24 during hospital admission [2] acetaminophen, 1,000 mg, Oral, q8h amLODIPine, 10 mg, Oral, Daily atorvastatin, 40 mg, Oral, Nightly B complex-vitamin C-folic acid, 1 capsule, Oral, Daily cefepime, 1,000 mg, IntraVENous, q12h cholecalciferol, 5,000 Units, Oral, Daily levETIRAcetam, 500 mg, Oral, Daily Lidocaine, 1 patch, TransDERmal, Daily melatonin, 5 mg, Oral, Nightly sevelamer carbonate, 800 mg, Oral, TID WC sodium chloride 0.9%, 5-40 mL, IntraVENous, q12h vitamin B-1, 250 mg, Oral, Daily vancomycin, 20 mg/kg, IntraVENous, Once [3] PRN medications: acetaminophen OR acetaminophen OR acetaminophen, hydrALAZINE, labetalol, naloxone, ondansetron ODT OR ondansetron, oxyCODONE, oxyCODONE, polyethylene glycol (PEG) 3350, sodium chloride, sodium chloride, sodium chloride 0.9% [4] Nephrology Progress Note Following for ESRD Pt seen in room NAD No complains Current Inpatient Medications: Reviewed on JUN. Vitals: BP (!) 143/106 (BP Location: Right arm, Patient Position: Sitting) Pulse (!) 121 Temp 36.7 C (98 F) (Temporal) Resp 16 Ht 1.64 m (5' 4.57) Wt 52.8 kg (116 lb 4.8 oz) SpO2 95% BMI 19.61 kg/m BLOOD PRESSURE RANGE: Systolic (24hrs), Av , Min:143 , Max:187 ; Diastolic (24hrs), Av, Min:92, Max:109 24HR INTAKE/OUTPUT: Intake/Output Summary (Last 24 hours) at 12/11/2024 1132 Last data filed at 12/11/2024 0909 Gross per 24 hour Intake 360 ml Output -- Net 360 ml Physical exam: Constitutional: NAD Skin: no rash, turgor wnl Heent: eomi, mmm Neck: no bruits or jvd noted Cardiovascular: Normal S1, S2 without m/r/g Respiratory: CTAB without w/r/r Abdomen: +bs, soft, nt, nd Ext: 2+ lower extremity edema Data: Labs: Recent Labs 12/09/24 1023 12/10/2454112/11/24224 WBC 9.7 10.2 12.1* HGB 7.6* 7.3* 7.7* HCT 23.5* 23.2* 23.6* MCV 91.8 92.4 91.8 PLT 311 293 300 Recent Labs 12/09/24102212/10/2454112/11/24224 NA 136 135* 138 K 3.1* 3.4* 3.7 CL 96* 99 100 CO2 32* 26 27 GLUCOSE 79* 74* 74* CALCIUM 7.6* 7.5* 8.0* PHOS 1.7* -- -- MG -- 1.8 -- BUN 19 25* 32* CREATININE 3.73* 4.24* 4.96* Assessment and Plan: 74 yo female pmhx of ESRD on MWF HD presented after fall. Nephrology following for ESRD ESRD Continue MWF Volume + expansion on exam Bp stable Electrolytes stable MBD Phos 1.7 Ca 8.0 Not on binders ok to replace phos Plan Continue MWF HD , plan for extra treatment [place], after MRI with contrast Monitor Volume status electrolytes cbc daily Continue to monitor BMP and electrolytes daily; replace K, Ca, Mg as needed. Transfuse PRBCs for Hgb < 7.0 g/dL; monitor for ongoing anemia. Continue renal diet and fluid restriction. Thank you for allowing me to care for pt. Feel free to reach out with any questions or concerns Pipe Soto MD [facility] [place] [phone] Images from the original note were not included. PHYSICAL THERAPY [facility] Name/MRN: Apoorva Gonzalez ([id number]) Date: 12/11/2024 PT held pending MRI c-spine imaging. Anitha Luna PT Nutrition Assessment Type and Reason for Visit: Initial, Wound (ESRD on HD) Nutrition Recommendations/Plan: Continue a Regular diet, appreciate documentation of %PO intakes in the flowsheets. Per MNT protocol, will trial vanilla magic cup once daily + Nepro once daily to support PO intake. Please indicated if pt is consuming in the flowsheets. Recommend obtain measured weight after HD. Pt needs an updated EDW per Nephrology. Monitor weight, labs, I/Os, skin integrity and overall nutrition status. RD to follow up weekly. Malnutrition Assessment: Malnutrition Status: At risk for malnutrition (Comment) (Recurrent admissions since 08/2024 with variable PO intakes and overall stable weight despite low BMI (normal for pt)) Context: Chronic Illness (Pt with recurrent admissions since hx sudden cardiac arrest at OSH 08/2024) Findings of the 6 clinical characteristics of malnutrition: Energy Intake: Mild decrease in energy intake (Comment) (Pt has variable PO intakes while admitted, difficult to determine adequacy. Has been orderd ONS (Nepro and magic cups) previously, but unsure of consumption/acceptance) Weight Loss: No significant weight loss (Pt's weight over the past year has ranged between 104#-124# (often has variable wts during admissions d/t bed weights). Her last known EDW was 47.1kg (104#) in September 2024. 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 difficile and multiple recent admissions, who was admitted on 12/08 after a mechanical fall while at dinner with her family and L hip pain. She did hit her head on the pavement but did not lose consciousness. Workup in the ED showed electrolyte abnormalities of hyponatremia at 135, hypokalemia at 2.6, hypochloremia at 94, creatinine of 3.05, Calcium 8.1, Alk phos 166, albumin 1.6, AST [address] head/cervical spine showed endplate erosive changes at the C3/C4 intervertebral disc, no acute intracranial findings. Pt was given 40 mEq of potassium and started on broad vancomycin & cefepime and admitted to observation for Nephrology review of her electrolyte abnormalities, MRI of the cervical spine to rule out discitis prior to discharge, and blood transfusion. S/p 1U PRBCs. Nephrology and Geriatrics following, resumed MWF HD schedule. Pt unable to tolerate MRI x2 (1st had anxiety and then d/t pain). She is on a regular diet with variable PO intake. RD visited pt this AM, she was moaning/whimpering and not very verbal with RD. She endorsed having pain everywhere, took RD's hand and was squeezing it and stating oh please over and over again. RD asked if pt received breakfast this AM and she shook her head no, however RD called diet office who reported her tray had been delivered earlier that morning and she ate 51-75% per flowhseet documentation. Pt unable to provide any accurate subjective hx at this time. Noted during pt's frequent admissions, her weight tends to vary between 104#-124# (bed weights). Her last known EDW was 47.1kg (104#) from 09/2024. RD obtained a bed weight of 116.3#, question accuracy.Per chart review, pt had told RD during previous admission that her BMI has always been <20 her entire life even though her intake is adequate. RD was able to perform a limited NFPE with mixed results (deficits observed to upper body, but legs appeared without deficits). Noted per chart hx, pt has a hx of declining ONS (does not consume at home or at HD), however she has been ordered vanilla magic cups and Nepro in recent admissions (unsure of acceptance). Estimated Daily Nutrient Needs: Energy Requirements Based On: Kcal/kg Weight Used for Energy Requirements: Other (Comment) (Last known EDW (09/2024)) Weight for Energy Calculation (kg): 47.1 kg Total Energy Requirements (kcals/day): 30-35 kcal/kg = 4506-8674 kcal/day Weight Used for Protein Requirements: Other (Comment) (Last known EDW (09/2024)) Weight in Kg Used for Protein Requirements: 47.1 kg Estimated Total Protein (g/day): 1.3-1.6 g/kg = 61-75 g/day Estimated Daily Total Fluid (ml/day): per MD Nutrition Related Findings: Labs: Cr 4.96, BG 79/74/74, Phos 1.7, WBC 12.1, Hgb 7.7, Meds: Nephrocaps and Renvela Patient Behaviors/Mood: Anxious, Impulsive, Restless, Tearful Feeding: Independent Room Service Room Service: Selective Arnol Scale Score: 19. Wound Type: Pressure Injury (Sacral pressure wound from 09/2024 per LDA, ??still present. Wound Care not consulted) Net IO Since Admission: 1,140 mL [12/11/24 1026] Gastrointestinal (WDL): Within Defined Limits Last BM Date: 12/11/24, Stool Appearance: Unable to assess, Stool Color: Unable to assess Oxygen Therapy: None (Room air), Current Nutrition Therapies: Adult diet Regular Current Oral Intake Average Meal Intake: 26-50%, 76-100%, 51-75% Average Supplements Intake: None Ordered Anthropometric Measures: Height: 164 cm (5' 4.57) Current Body Weight: 52.8 kg (116 lb 4.8 oz) (12/11 bed) Admission Body Weight: 50.3 kg (111 lb) (12/08 stated) Usual Body Weight: (Most recent EDW 47.1kg (104#) from 09/2024. Wt usually range between 105-121# during admissions since August 2024. Wts prior to that within the past year between 105-112#.) [place] Body Weight (lbs) (Calculated): 123 lbs [place] Body Weight (Kg) (Calculated): 56 kg % [place] Body Weight (Calculated): 94.6 % BMI (kg/m2) (Calculated): 19.6 Weight Adjustment For: No Adjustment BMI Categories: Underweight (BMI less than 22) age over 65 Nutrition Diagnosis: Increased nutrient needs related to renal dysfunction as evidenced by dialysis Nutrition Interventions: Nutrition Education/Counseling: No recommendation at this time Coordination of Nutrition Care: Continue to monitor while inpatient Goals: Goals: PO intake 50% or greater, by next RD assessment Nutrition Monitoring and Evaluation: Behavioral-Environmental Outcomes: None Identified Food/Nutrient Intake Outcomes: Supplement Intake, Food and Nutrient Intake Physical Signs/Symptoms Outcomes: Biochemical Data, Nutrition Focused Physical Findings, Skin, Weight, GI Status, Fluid Status or Edema, Hemodynamic Status, Meal Time Behavior Discharge Planning: Too soon to determine Lilliana Manning RD Contact: [phone] [facility] Inpatient Consult Service Admission Date: 12/08/2024 Assessment Principal Problem: Fall, initial encounter Active Problems: Fall (on)(from) sidewalk curb, initial encounter Plan Acute Encephalopathy --Hypoactive at time of visit, follows simple commands --Etiology likely multifactorial related to concern for infection (WBC increased), pain, hospitalization, medication effects, electrolyte abnormalities --Continue to treat acute/underlying illness per primary service. Continued on cefepime IV --MRI c-spine pending --CT head on 12/08 with chronic white matter ischemic changes --Encourage PO intake, time up in chair, family visits, supervised ambulation, and sleep hygiene --If agitated, assess for and consider treating for pain --QTc= None on admission, Qtc 458 on 11/01/24 --No antipsychotic unless patient is danger to self/others/treatment --Would avoid benzodiazepines in this older adult patient as this drug class increases risk of falls and confusion along with other potentially negative side effects which would outweigh any theoretical benefit. --Continue scheduled melatonin at HS --Monitor for constipation/urinary retention - last BM 12/11 --Possible medication contributions: PRN narcotics Fall Declining functional status --Related to physical deconditioning, multiple hospitalizations, ESRD, seizure history --Await PT/OT eval --Anticipate d/c to TBD --Vitamin D 60 --Check orthostatic vital signs as able Acute pain due to trauma -Management per primary service -Agree with scheduled tylenol (1000 mg q 8 hours) unless otherwise contraindicated. -If narcotics are required recommend using lowest effective dose of oral narcotic as needed for breakthrough pain. -Continue lidocaine patch -Optimize nonpharmacologic pain treatment modalities. -Ensure that bowel regimen is in place while on narcotic regimen. Constipation -Chronic, recurrent problem -Management per primary service -Last documented BM 12/11 -Agree with MiraLAX as needed, goal is soft BM no less than every 3 days. Anxiety -Management per primary service -Agree with sertraline 25 mg daily -Can consider trial of pregabalin 25 mg daily PRN anxiety as this can help with pain/mood. Would not increase dose any higher due to CrCl Plan discussed with RN. Follow-up: will follow with you Subjective Chief Complaint: fall Geriatrics consulted for fall HPI- The patient is new to me but seen by the Geriatric Inpatient Consult team. 74 y.o. year-old female admitted to acute care from home for fall on 12/08. Patient reportedly fell backwards and hit the back of her head on pavement, no loss of consciousness. Head CT in the emergency department did not show any acute intracranial findings, concerning for discitis. Diagnosed with anemia and concern for discitis. Started on empiric antibiotics and MRI c-spine pending. Interval History: Remains on 6W. No acute overnight events. Concern for anxiety worsened this morning. Labs reviewed with sodium 138, BUN 32, creatinine 4.96, vitamin D 60, WBC 12.,1, hemoglobin 7.7. Cooperative with oral medications. MRI C-spine pending. Nephrology following for HD planned for MWF. Plan for HD this afternoon. Patient awake and alert in bed. Patient moaning at time of visit and does not answer questions. Patient squeezes hands to commands and moving upper and lower extremities spontaneously. Opens eyes to voice and looks at nurse/provider when spoke to. Does not state where she is having pain. Spoke to RN. Patient was yelling out this morning and asking for help. Patient cooperative with oral medications. Review of Systems Unable to perform ROS: Mental status change Objective BP (!) 143/106 (BP Location: Right arm, Patient Position: Sitting) Pulse (!) 121 Temp 36.7 C (98 F) (Temporal) Resp 16 Ht 5' 4.57 (1.64 m) Wt 116 lb 4.8 oz (52.8 kg) SpO2 95% BMI 19.61 kg/m Intake/Output Summary (Last 24 hours) at 12/11/2024 1134 Last data filed at 12/11/2024 0909 Gross per 24 hour Intake 360 ml Output -- Net 360 ml Wt Readings from Last 3 Encounters: 12/11/24 116 lb 4.8 oz (52.8 kg) 12/06/24 103 lb (46.7 kg) 11/27/24 103 lb (46.7 kg) Current Medications[1] Physical Exam Vitals and nursing note reviewed. Constitutional: No acute distress, well-nourished, well kempt Psych: Mood and affect Flat. Fair eye contact. Cardiovascular: Regular rate and rhythm, + BLE edema Pulmonary/Chest: Clear to auscultation anterior only, normal respiratory effort, no coughing noted Abdominal: Soft, not distended, no tenderness to palpation, BS present, Neurological: alert, inattentive, speech is unclear , disoriented, follows some simple commands, Skin: warm and dry, no visible rashes or wounds Labs and Imaging: Recent Results (from the past 24 hours) Vitamin D Deficiency Screening (Vit D 25) Collection Time: 12/11/24 2:25 AM Result Value Ref Range VIT D 25-OH, TOTAL 60 (H) See comment ng/mL CBC auto differential Collection Time: 12/11/24 2:25 AM Result Value Ref Range Auto WBC 12.1 (H) 3.6 - 10.7 10*3/uL RBC 2.57 (L) 3.80 - 5.20 10*6/uL Hemoglobin 7.7 (L) 11.7 - 16.0 g/dL Hematocrit 23.6 (L) 35.0 - 47.0 % MCV 91.8 77.0 - 99.0 fL MCH 30.0 26.0 - 34.0 pg MCHC 32.6 30.5 - 36.0 % RDW 18.3 (H) 11.5 - 15.0 % Platelets 300 140 - 440 10*3/uL MPV 10.6 9.0 - 12.7 fL nRBC 0.0 0.0 - 2.0 /100 WBCs Neutrophils Relative 80.5 38.0 - 82.0 % Lymphocytes Relative 10.5 (L) 15.0 - 45.0 % Monocytes Relative 4.4 (L) 5.0 - 13.0 % Eosinophils Relative 3.2 0.0 - 6.0 % Basophils Relative 1.1 0.0 - 2.0 % Immature Grans % 0.3 0.0 - 2.0 % Neutrophils Absolute 9.8 (H) 1.8 - 7.5 10*3/uL Lymphocytes Absolute 1.3 1.0 - 4.3 10*3/uL Monocytes Absolute 0.5 0.0 - 0.9 10*3/uL Eosinophils Absolute 0.4 0.0 - 0.5 10*3/uL Basophils Absolute 0.1 0.0 - 0.2 10*3/uL Immature Grans Absolute 0.0 <0.1 10*3/uL IPF 2 Comprehensive metabolic panel Collection Time: 12/11/24 2:25 AM Result Value Ref Range SODIUM 138 136 - 145 mmol/L POTASSIUM 3.7 3.5 - 5.1 mmol/L CHLORIDE 100 98 - 107 mmol/L CARBON DIOXIDE 27 23 - 31 mmol/L ANION GAP 11 3 - 13 mmol/L UREA NITROGEN 32 (H) 9 - 23 mg/dL CREATININE 4.96 (H) 0.57 - 1.11 mg/dL GLUCOSE 74 (L) 82 - 115 mg/dL CALCIUM 8.0 (L) 8.8 - 10.0 mg/dL AST (SGOT) 41 (H) <34 U/L ALT 13 <30 U/L ALKALINE PHOSPHATASE 149 40 - 150 U/L ALBUMIN 1.5 (L) 3.4 - 4.8 g/dL BILIRUBIN, TOTAL 0.4 <1.2 mg/dL TOTAL PROTEIN 6.5 6.4 - 8.3 g/dL eGFR 8.7 (L) >60.0 mL/min/1.73m*2 Lab Results Component Value Date TSH 3.30 09/14/2024 Lab Results Component Value Date [id number] >2,000 (H) 09/14/2024 Lab Results Component Value Date VITD25 60 (H) 12/11/2024 Reviewed: allergies, imaging, active problem lists, medications, and labs [1] Current Facility-Administered Medications: acetaminophen (Tylenol) tablet 650 mg, 650 mg, Oral, q4h PRN OR Acetaminophen (Tylenol) 650 MG/20.3ML solution 650 mg, 650 mg, Oral, q4h PRN OR acetaminophen (Tylenol) suppository 650 mg, 650 mg, Rectal, q4h PRN, Radha Kuzmin, DO acetaminophen (Tylenol) tablet 1,000 mg, 1,000 mg, Oral, q8h, Radha Kuzmin, DO, 1,000 mg at 12/11/24 1052 amLODIPine (Norvasc) tablet 10 mg, 10 mg, Oral, Daily, Radhajacquelyn Beltranzmin, DO, 10 mg at 12/11/24 08 atorvastatin (Lipitor) tablet 40 mg, 40 mg, Oral, Nightly, John Victor Manuel Stuartz, DO, 40 mg at 12/10/24 2124 B complex-vitamin C-folic acid (Nephrocaps) capsule 1 capsule, 1 capsule, Oral, Daily, John Shepherd, DO, 1 capsule at 12/11/24 08 cefepime (Maxipime) 1,000 mg in sodium chloride 0.9 % 50 mL IVPB, 1,000 mg, IntraVENous, q12h, Jacob Laguna DO, Last Rate: 100 mL/hr at 12/11/24 1057, 1,000 mg at 12/11/24 1057 cholecalciferol (Vitamin D-3) tablet 5,000 Units, 5,000 Units, Oral, Daily, John Shepherd, DO, 5,000 Units at 12/11/24 08 hydrALAZINE (Apresoline) injection 10 mg, 10 mg, IntraVENous, q4h PRN, Radha Kuzmin, DO, 10 mg at 12/09/24 1521 labetalol (Normodyne,Trandate) injection 10 mg, 10 mg, IntraVENous, q6h PRN, Radha Kuzmin, DO, 10 mg at 12/10/242123 levETIRAcetam (Keppra) tablet 500 mg, 500 mg, Oral, Daily, John Benitez Pentz, DO, 500 mg at 12/11/24812 Lidocaine 4 % patch 1 patch, 1 patch, TransDERmal, Daily, Radha Paredesmin, DO melatonin tablet 5 mg, 5 mg, Oral, Nightly, John Benitez Pentz, DO, 5 mg at 12/10/242123 naloxone (Narcan) injection 0.4 mg, 0.4 mg, IntraVENous, q5 min PRN, Radha Paredesmin, DO ondansetron ODT (Zofran-ODT) disintegrating tablet 4 mg, 4 mg, Oral, q8h PRN OR ondansetron (Zofran) injection 4 mg, 4 mg, IntraVENous, q6h PRN, John Stuartz, DO oxyCODONE (Roxicodone) immediate release tablet 2.5 mg, 2.5 mg, Oral, q4h PRN, Radha Beltranzmin, DO oxyCODONE (Roxicodone) immediate release tablet 5 mg, 5 mg, Oral, q4h PRN, Radha Paredesmin, DO, 5 mg at 12/11/24812 polyethylene glycol (PEG) 3350 (Miralax) packet 17 g, 17 g, Oral, Daily PRN, John Benitez Pentz, DO, 17 g at 12/10/24 1204 pregabalin (Lyrica) capsule 25 mg, 25 mg, Oral, BID PRN, Radha Beltranzmin, DO, 25 mg at 12/11/24 1052 sertraline (Zoloft) tablet 25 mg, 25 mg, Oral, Daily, Radha Beltranzmin, DO, 25 mg at 12/11/24 105 sevelamer carbonate (Renvela) tablet 800 mg, 800 mg, Oral, TID WC, John Benitez Pentz, DO, 800 mg at 12/11/24812 sodium chloride 0.9 % infusion, 250 mL/hr, IntraVENous, PRN, John Benitez Pentz, DO sodium chloride 0.9 % infusion, 5-250 mL/hr, IntraVENous, PRN, John Benitez Pentz, DO sodium chloride 0.9% (NS) flush 5-40 mL, 5-40 mL, IntraVENous, q12h, John Shepherd DO, 10 mL at 12/10/24 0816 sodium chloride 0.9% (NS) flush 5-40 mL, 5-40 mL, IntraVENous, PRN, John Stuartz, DO thiamine (Vitamin B1) tablet 250 mg, 250 mg, Oral, Daily, John Shepherd DO, 250 mg at 12/11/24 0813 vancomycin (Vancocin) 1,000 mg in sodium chloride 0.9 % 250 mL IVPB (Vial Mate), 20 mg/kg, IntraVENous, Once, John Shepherd DO [facility] Progress Note Nephrology following for ESRD. Events over night: Two attempts for MRI yesterday unsuccessful due to anxiety BP (!) 191/91 (BP Location: Right arm, Patient Position: Lying) Pulse 94 Temp 36.7 C (98.1 F) (Temporal) Resp 24 Ht 1.64 m (5' 4.57) Wt 50.3 kg (111 lb) SpO2 100% BMI 18.72 kg/m Input / Output: 24 HR: Intake/Output Summary (Last 24 hours) at 12/10/2024 1434 Last data filed at 12/10/2024 0929 Gross per 24 hour Intake 240 ml Output -- Net 240 ml Physical Exam Alert and oriented x 3 NAD Neck: no JVD CV: RRR Lungs: CTA bilaterally Abd: soft, NT, ND Ext: no lower extremity edema Scheduled medications Scheduled Meds[1] Continuous medications Continuous Meds[2] PRN medications PRN Meds[3] Results from last 7 days Lab Units 12/10/24 0542 SODIUM mmol/L 135* POTASSIUM mmol/L 3.4* CHLORIDE mmol/L 99 CO2 mmol/L 26 BUN mg/dL 25* CREATININE mg/dL 4.24* CALCIUM mg/dL 7.5* PROTEIN TOTAL g/dL 5.7* BILIRUBIN TOTAL mg/dL 0.4 ALK PHOS U/L 125 ALT U/L 11 AST U/L 36* GLUCOSE mg/dL 74* Results from last 7 days Lab Units 12/10/24 0542 MAGNESIUM mg/dL 1.8 Results from last 7 days Lab Units 12/10/24 0542 12/09/24 1023 12/08/24 2229 WBC AUTO 10*3/uL 10.2 9.7 11.2* HEMOGLOBIN g/dL 7.3* 7.6* 6.9* HEMATOCRIT % 23.2* 23.5* 20.9* PLATELETS 10*3/uL 293 311 359 Assessment & Plan: End-Stage Renal Disease (ESRD) on Hemodialysis Dialysis schedule: MWF via left upper extremity access. Recent history of AV graft infection, excision, and hematoma evacuation. Current admission: Presented after a mechanical fall, with anemia and electrolyte abnormalities. K 2.6 on arrival (corrected with supplementation). No urgent dialysis indications today. Volume status: Stable. No pulmonary edema, no severe hypertension beyond baseline, no signs of fluid overload. Electrolytes: Hypokalemia correcting with supplementation. Hyponatremia mild and stable. Calcium borderline low. Will recheck with morning labs. Acid-base: CO? within acceptable range; no acidosis. Uremia: No encephalopathy, pericarditis, nausea, vomiting, or pruritus suggesting urgent need for dialysis. Anemia: Chronic anemia secondary to ESRD, compounded by recent bleeding and transfusion dependence. Received 1 unit PRBC this admission. Will recheck Hgb and transfuse further PRBCs as indicated. Access: Left upper extremity site currently clean/dry with no drainage or signs of acute infection. Continue to monitor closely. Medications: Resume home phosphate binder (sevelamer), renal vitamins, and continue monitoring for need of HODAN. Plan: No dialysis today; Pt attempted MRI but could not complete the exam. Patient refusing to continue exam. resume next session on Wednesday (MWF schedule). Use 4 K with HD tomorrow Continue to monitor BMP and electrolytes daily; replace K, Ca, Mg as needed. Transfuse PRBCs for Hgb < 7.0 g/dL; monitor for ongoing anemia. Continue renal diet and fluid restriction. Monitor AV access site for bleeding, hematoma, or infection. Nephrology to follow for dialysis planning and medication adjustments. Please message me through [employer] chat with any questions or concerns. Jose G Ramirez DO 12/10/2024 2:34 PM [facility] [address], [address] [place] [address] Office: [phone] [1] [START ON 12/11/2024] amLODIPine, 10 mg, Oral, Daily atorvastatin, 40 mg, Oral, Nightly B complex-vitamin C-folic acid, 1 capsule, Oral, Daily cefepime, 1,000 mg, IntraVENous, q12h cholecalciferol, 5,000 Units, Oral, Daily levETIRAcetam, 500 mg, Oral, Daily Lidocaine, 1 patch, TransDERmal, Daily melatonin, 5 mg, Oral, Nightly sevelamer carbonate, 800 mg, Oral, TID WC sodium chloride 0.9%, 5-40 mL, IntraVENous, q12h vitamin B-1, 250 mg, Oral, Daily vancomycin, 20 mg/kg, IntraVENous, Once [2] [3] PRN medications: acetaminophen OR acetaminophen, hydrALAZINE, labetalol, ondansetron ODT OR ondansetron, polyethylene glycol (PEG) 3350, sodium chloride, sodium chloride, sodium chloride 0.9% Hospitalist Progress Note 12/10/2024 Subjective: Admit Date: 12/08/2024 PCP: Roxie Spain Room#: W6-633/W6-633 A Chief Complaint Patient presents with Fall Pt presents to ED for mechanical fall while at dinner. Pt family states pt fell backwards and hit her head and now has lump on head, denies LOC. Denies blood thinners. BRIEF HOSPITAL COURSE: Apoorva is a 73 y.o. female with past medical history hx seizure ( 2021 a/w HTN encephalopathy) ,ESRD on HD ,AV graft placement (Dr. 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 difficile. She had a complicated year with admissions and infections Presented to ED this time after a mechanical fall while at dinner and L hip pain after the fall Normally she uses a wheelchair but she stood up to try to help her family member and fell backwards hitting her head on the pavement. She did not consciousness. In the emergency department, patient was hypertensive and mildly tachycardic but other vital signs were stable. Chemistry profile revealed hyponatremia at 135, hypokalemia at 2.6, hypochloremia at 94, creatinine of 3.05. Calcium 8.1. Alk phos 166, albumin 1.6, AST 46. She has a small leukocytosis with a WBC count of 11.2. Her hemoglobin is low at 6.9. She does have a mild left shift. -CT head/cervical spine completed shows endplate erosive changes at the C3/C4 intervertebral disc. No acute intracranial findings In the ER patient was given 40 mEq of potassium, vancomycin and cefepime for broad-spectrum coverage And admitted to observation for nephrology review regarding her electrolyte abnormalities, MRI of the cervical spine to rule out discitis prior to discharge, and blood transfusion. 12/09: No overnight issues. Going to MRI today with plan for HD afterwards . Unfortunately unable to tolerate d/t anxiety, but going to try again with ativan on board later today Interval History: Unable to tolerate MRI yesterday d/t pain Pain meds have been adjusted This am reports having pain everywhere Says wants to go home when she is ready Case and plan discussed with patient and bedside nurse. All questions answered. Adult diet Regular 24HR INTAKE/OUTPUT: Intake/Output Summary (Last 24 hours) at 12/10/2024 1050 Last data filed at 12/10/2024 0929 Gross per 24 hour Intake 240 ml Output -- Net 240 ml Past Medical History: Medical History[1] LABS: CBC: Recent Labs 12/08/24222812/09/24 10212/10/24 0542 WBC 11.2* 9.7 10.2 RBC 2.26* 2.56* 2.51* HGB 6.9* 7.6* 7.3* HCT 20.9* 23.5* 23.2* MCV 92.5 91.8 92.4 RDW 18.4* 18.7* 18.6* PLT 359 311 293 BMP: Recent Labs 12/08/24222812/09/24 1023 12/10/24 0542 NA 135* 136 135* K 2.6* 3.1* 3.4* CL 94* 96* 99 CO2 30 32* 26 BUN 17 19 25* CREATININE 3.05* 3.73* 4.24* GLUCOSE 101 79* 74* CALCIUM 8.1* 7.6* 7.5* ANIONGAP 11 8 10 LIVER PROFILE: Recent Labs 12/08/24 2229 12/10/24 0542 AST 46* 36* ALT 14 11 BILITOT 0.4 0.4 ALKPHOS 166* 125 PROT 6.4 5.7* PT/INR: No results for input(s): PROTIME, INR in the last 72 hours. CARDIAC ENZYMES: No results for input(s): TROPONINI in the last 72 hours. Procalcitonin: No results found for: PROCAL COVID-19 PCR: No results for input(s): COVID19 in the last 72 hours. Objective: Vitals: BP (!) 191/91 (BP Location: Right arm, Patient Position: Lying) Pulse 94 Temp 36.7 C (98.1 F) (Temporal) Resp 24 Ht 5' 4.57 (1.64 m) Wt 111 lb (50.3 kg) SpO2 100% BMI 18.72 kg/m Pulse Ox: SpO2 Av.5 % Min: 97 % Max: 100 % Supplemental O2: Physical Exam Vitals and nursing note reviewed. Constitutional: General: She is not in acute distress. Comments: fatigued HENT: Head: Normocephalic and atraumatic. Mouth/Throat: Mouth: Mucous membranes are moist. Eyes: Extraocular Movements: Extraocular movements intact. Cardiovascular: Rate and Rhythm: Normal rate and regular rhythm. Pulmonary: Effort: Pulmonary effort is normal. No respiratory distress. Abdominal: General: Bowel sounds are normal. There is no distension. Tenderness: There is no abdominal tenderness. Musculoskeletal: General: Tenderness present. No swelling. Cervical back: Neck supple. Skin: General: Skin is warm and dry. Neurological: General: No focal deficit present. Mental Status: She is alert. Comments: Generalized weakness Psychiatric: Mood and Affect: Mood normal. Medications: Scheduled PRN Scheduled Meds[2] PRN Meds[3] Continuous Continuous Meds[4] Assessment Data: (CAT1) Reviewed 2 notes from different specialty or health system (each=1). (CAT1) Reviewed 2 labs/studies ordered by another provider not previously counted (each=1, panels count as 1). (CAT3) Mgmt of the patient was discussed with * (LOW: 2x CAT1 or independent historian MOD: 3x CAT1 or 1x CAT3 EXTENSIVE: 3x CAT1 and 1x CAT3) Acute, acute on chronic, unstable/uncontrolled chronic problems/diagnoses: Mechanical fall Acute on chronic anemia - s/p 1 unit PRBC in ED - Hg 6.9 -->> 7.3 - monitor and supplement as needed - geriatrics c/s - vit D PT/OT endplate erosive changes at the C3/C4 intervertebral disc Mild leukocytosis - Rule out discitis - MRI c-spine is pending - cont Cefepime for now - unable to complete it on 12/09 - 1st had anxiety and then d/t pain - plan for HD after MRI Hyponatremia - mild - resolved , now down to 135 in setting of ESRD Hypokalemia - K = 2.6 on presentation ->received 40 mEq last night -> K = 3.1 on 12/09 -> 10 meq PO - K = 3.4 this morning -> give 10 meq today and monitor - monitor and replace is needed with caution in setting of ESRD Left hip pain - s/p fall XR HIP 2 OR 3 VW LEFT Arthroplasties in adequate alignment. No acute abnormality. - lido patch, prn oxycodone 2.5-5 - add scheduled tylenol per geriatrics recs HTN urgency - prn labetalol and hydralazine Cont home amlodipine -> increase to 10 mg daily - monitor for need to adjust BP regimen Constipation - cont bowel reg Stable chronic problems affecting care, new non-acute diagnoses: ESRD on HD - Nephrology consultation for electrolyte/hemodialysis management Seizure disorder - home Keppra to prevent seizures Plan As a result of the above findings & factors, the following mgmt was pursued: - as above - am labs, replace lytes prn - PT/OT/CM/SW - delirium precautions: increase activity and limit nighttime disturbances - DVT prophylaxis: SCDs Complexity: Acute illness or injury posing a threat to life or body function (HIGH). Risk: Use/consideration of a high risk treatment or study: imaging requiring IV contrast or IV sedation (HIGH). Advance Directive: DNR-CCA Anticipated Discharge - Date - 12/11? - Location - Home with Home Health Care? - Pending the following - clinical course, MRI, therapies eval Total time spent (which include face to face and non face to face encounters) : minutes Toxic drug monitoring/narrow therapeutic index drug monitoring : # Drug name : # Route administered : # Method of monitoring : Extended Emergency Contact Information Primary Emergency Contact: Deshawn Crystal Mobile Relation: Brother Technical Coordinator needed? No Secondary Emergency Contact: Edward Ruggiero Mobile Relation: Significant Other Preferred language: Cambodian Technical Coordinator needed? No Radha Kevin DO Division of Hospitalist Medicine [facility] [1] Past Medical History: Diagnosis Date Chronic kidney disease (CKD) Hemodialysis patient (CMS/HCC) (HCC) Wednesday, , Wednesday History of blood transfusion 02/27/2022 Hypertension Seizure ([facility]) Developed seizure-like activity on 02/24 during hospital admission [2] amLODIPine, 5 mg, Oral, Daily atorvastatin, 40 mg, Oral, Nightly B complex-vitamin C-folic acid, 1 capsule, Oral, Daily cefepime, 1,000 mg, IntraVENous, q12h cholecalciferol, 5,000 Units, Oral, Daily levETIRAcetam, 500 mg, Oral, Daily Lidocaine, 1 patch, TransDERmal, Daily melatonin, 5 mg, Oral, Nightly sevelamer carbonate, 800 mg, Oral, TID WC sodium chloride 0.9%, 5-40 mL, IntraVENous, q12h vitamin B-1, 250 mg, Oral, Daily vancomycin, 20 mg/kg, IntraVENous, Once [3] PRN medications: acetaminophen OR acetaminophen, hydrALAZINE, labetalol, ondansetron ODT OR ondansetron, polyethylene glycol (PEG) 3350, sodium chloride, sodium chloride, sodium chloride 0.9% [4] 2nd attempt for MRI with meds patient still refusing exam Hospitalist Progress Note 12/09/2024 Subjective: Admit Date: 12/08/2024 PCP: Roxie Spain Room#: [id number] A Chief Complaint Patient presents with Fall Pt presents to ED for mechanical fall while at dinner. Pt family states pt fell backwards and hit her head and now has lump on head, denies LOC. Denies blood thinners. BRIEF HOSPITAL COURSE: Apoorva is a 73 y.o. female with past medical history hx seizure ( 2021 a/w HTN encephalopathy) ,ESRD on HD ,AV graft placement (Dr. 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 difficile. She had a complicated year with admissions and infections Presented to ED this time after a mechanical fall while at dinner and L hip pain after the fall Normally she uses a wheelchair but she stood up to try to help her family member and fell backwards hitting her head on the pavement. She did not consciousness. In the emergency department, patient was hypertensive and mildly tachycardic but other vital signs were stable. Chemistry profile revealed hyponatremia at 135, hypokalemia at 2.6, hypochloremia at 94, creatinine of 3.05. Calcium 8.1. Alk phos 166, albumin 1.6, AST 46. She has a small leukocytosis with a WBC count of 11.2. Her hemoglobin is low at 6.9. She does have a mild left shift. -CT head/cervical spine completed shows endplate erosive changes at the C3/C4 intervertebral disc. No acute intracranial findings In the ER patient was given 40 mEq of potassium, vancomycin and cefepime for broad-spectrum coverage And admitted to observation for nephrology review regarding her electrolyte abnormalities, MRI of the cervical spine to rule out discitis prior to discharge, and blood transfusion. Interval History: No overnight issues. Going to MRI today with plan for HD afterwards . Unfortunately unable to tolerate d/t anxiety, but going to try again with ativan on board later today Case and plan discussed with patient and bedside nurse. All questions answered. Adult diet Regular 24HR INTAKE/OUTPUT: Intake/Output Summary (Last 24 hours) at 12/09/2024 1012 Last data filed at 12/09/2024 0820 Gross per 24 hour Intake 540 ml Output -- Net 540 ml Past Medical History: Medical History[1] LABS: CBC: Recent Labs 12/08/242228 WBC 11.2* RBC 2.26* HGB 6.9* HCT 20.9* MCV 92.5 RDW 18.4* PLT 359 BMP: Recent Labs 12/08/242228 NA 135* K 2.6* CL 94* CO2 30 BUN 17 CREATININE 3.05* GLUCOSE 101 CALCIUM 8.1* ANIONGAP 11 LIVER PROFILE: Recent Labs 12/08/24 222 AST 46* ALT 14 BILITOT 0.4 ALKPHOS 166* PROT 6.4 PT/INR: No results for input(s): PROTIME, INR in the last 72 hours. CARDIAC ENZYMES: No results for input(s): TROPONINI in the last 72 hours. Procalcitonin: No results found for: PROCAL COVID-19 PCR: No results for input(s): COVID19 in the last 72 hours. Objective: Vitals: BP (!) 184/109 (BP Location: Right arm, Patient Position: Sitting) Pulse 93 Temp 36.9 C (98.4 F) (Temporal) Resp 20 Ht 5' 4.57 (1.64 m) Wt 111 lb (50.3 kg) SpO2 99% BMI 18.72 kg/m Pulse Ox: SpO2 Av.6 % Min: 98 % Max: 100 % Supplemental O2: Physical Exam Vitals and nursing note reviewed. Constitutional: General: She is not in acute distress. Comments: fatigued HENT: Head: Normocephalic and atraumatic. Mouth/Throat: Mouth: Mucous membranes are moist. Eyes: Extraocular Movements: Extraocular movements intact. Cardiovascular: Rate and Rhythm: Normal rate and regular rhythm. Pulmonary: Effort: Pulmonary effort is normal. No respiratory distress. Abdominal: General: Bowel sounds are normal. There is no distension. Tenderness: There is no abdominal tenderness. Musculoskeletal: General: Tenderness present. No swelling. Cervical back: Neck supple. Skin: General: Skin is warm and dry. Neurological: General: No focal deficit present. Mental Status: She is alert. Comments: Generalized weakness Psychiatric: Mood and Affect: Mood normal. Medications: Scheduled PRN Scheduled Meds[2] PRN Meds[3] Continuous Continuous Meds[4] Assessment Data: (CAT1) Reviewed 3 or more notes from different specialty or health system (each=1). (CAT1) Reviewed 2 labs/studies ordered by another provider not previously counted (each=1, panels count as 1). (CAT3) Mgmt of the patient was discussed with RN regarding pt;s condition, BP, meds (LOW: 2x CAT1 or independent historian MOD: 3x CAT1 or 1x CAT3 EXTENSIVE: 3x CAT1 and 1x CAT3) Acute, acute on chronic, unstable/uncontrolled chronic problems/diagnoses: Mechanical fall Acute on chronic anemia - s/p 1 unit PRBC in ED - monitor and supplement as needed - geriatrics c/s PT/OT endplate erosive changes at the C3/C4 intervertebral disc Mild leukocytosis - Rule out discitis - MRI c-spine is pending - unable to complete it today - 1st had anxiety and then d/t pain - plan for HD after MRI Hyponatremia - resolved Hypokalemia - K = 2.6 on presentation ->received 40 mEq last night -> K = 3.1. will give 10 meq today - monitor and replace is needed with caution in setting of ESRD Left hip pain - s/p fall XR HIP 2 OR 3 VW LEFT Arthroplasties in adequate alignment. No acute abnormality. - add lido patch - cont prn oxycodone HTN urgency add prn labetalol and hydralazine Cont home amlodipine. Titrate as needed. Stable chronic problems affecting care, new non-acute diagnoses: ESRD on HD - Nephrology consultation for electrolyte/hemodialysis management Seizure disorder - home Keppra to prevent seizures Plan As a result of the above findings & factors, the following mgmt was pursued: - as above - am labs, replace lytes prn - PT/OT/CM/SW - delirium precautions: increase activity and limit nighttime disturbances - DVT prophylaxis: SCDs Complexity: Acute illness or injury posing a threat to life or body function (HIGH). Risk: Use/consideration of a high risk treatment or study: imaging requiring IV contrast or IV sedation (HIGH). Advance Directive: DNR-CCA Anticipated Discharge - Date - 12/10? - Location - Home with Home Health Care? - Pending the following - clinical course, MRI Total time spent (which include face to face and non face to face encounters) : minutes Toxic drug monitoring/narrow therapeutic index drug monitoring : # Drug name : # Route administered : # Method of monitoring : Extended Emergency Contact Information Primary Emergency Contact: Deshawn Crystal Mobile Relation: Brother Technical Coordinator needed? No Secondary Emergency Contact: Edward Ruggiero Mobile Relation: Significant Other Preferred language: Cambodian Technical Coordinator needed? No Radha Kevin DO Division of Hospitalist Medicine [facility] [1] Past Medical History: Diagnosis Date Chronic kidney disease (CKD) Hemodialysis patient (CMS/HCC) (HCC) Wednesday, , Wednesday History of blood transfusion 02/27/2022 Hypertension Seizure (HCC) Developed seizure-like activity on 02/24 during hospital admission [2] amLODIPine, 5 mg, Oral, Daily atorvastatin, 40 mg, Oral, Nightly B complex-vitamin C-folic acid, 1 capsule, Oral, Daily cefepime, 1,000 mg, IntraVENous, q12h cholecalciferol, 5,000 Units, Oral, Daily levETIRAcetam, 500 mg, Oral, Daily melatonin, 5 mg, Oral, Nightly sevelamer carbonate, 800 mg, Oral, TID WC sodium chloride 0.9%, 5-40 mL, IntraVENous, q12h vitamin B-1, 250 mg, Oral, Daily vancomycin, 20 mg/kg, IntraVENous, Once [3] PRN medications: acetaminophen OR acetaminophen, LORazepam, ondansetron ODT OR ondansetron, polyethylene glycol (PEG) 3350, sodium chloride, sodium chloride, sodium chloride 0.9% [4] Pt attempted MRI but could not complete the exam. Patient refusing to continue exam. Images from the original note were not included. OCCUPATIONAL THERAPY [facility] Name/MRN: Apoorva Gonzalez ([id number]) Date: 12/09/2024 OT orders received and chart reviewed. MRI pending c-spine for r/o discitis, will await results prior to initiating OT eval. Jelly Fischer OT Images from the original note were not included. PHYSICAL THERAPY [facility] Name/MRN: Apoorva Gonzalez ([id number]) Date: 12/09/2024 PT orders received, chart review performed. Patient currently has c-spine MRI pending to r/o discitis. Will hold PT eval and await imaging results. Will re-attempt as patient is appropriate during acute hospital stay. Dinora Jaramillo PT documented in this encounter [facility] 12-18-2024 Hospital Discharge instructions Enriqueta Benton PA-C - 12/18/2024 2:47 PM EDT Orthopaedic Surgery Discharge Instructions: -Weight bearing as tolerated -Activity as tolerated, except avoid heavy lifting/pulling/otherwise strenuous activity -Follow-up outpatient with Dr. Benito. The office contact information is provided in your paperwork. -IF you experience SEVERE worsening of pain in short period of time and/or significant numbness/weakness in extremities or new loss of bowel or bladder function please call the office or return to the emergency department -Take medications as prescribed by the hospital doctors Jamie Medina RN - 12/12/2024 12:24 PM EDT Images from the original note were not included. Continuity of Care Form Patient Name: Apoorva Gonzalez : 1950 Admit date: 12/08/2024 Discharge date: 12/20/2024 Code Status Order: DNR-CCA Advance Directives: Y Admitting Physician: Leticia Leonardo DO PCP: Roxie Spain Discharging Nurse: CYNTHIA Ayala Discharging Hospital Unit/Room#: [id number] A Discharging Unit Phone Number: [phone] Emergency Contact: Extended Emergency Contact Information Primary Emergency Contact: Deshawn Crystal Mobile Relation: Brother Technical Coordinator needed? No Secondary Emergency Contact: Edward Ruggiero Mobile Relation: Significant Other Preferred language: Cambodian Technical Coordinator needed? No Past Surgical History: Past Surgical History: Procedure Laterality Date AV FISTULA PLACEMENT Left 08/07/2022 COLONOSCOPY N/A 01/25/2024 Performed by Chrissy Gilman MD at [facility] ENDOSCOPY IR CVC TUNNELED DIALYSIS CATHETER PLACEMENT 02/27/2022 IR CVC TUNNELED CATHETER PLACEMENT 02/27/2022 Candis Andrade MD [facility] SPECIAL PROCEDURES IR EMBOLIZATION 01/24/2024 IR EMBOLIZATION 01/24/2024 Jovan Glynn MD [facility] SPECIAL PROCEDURES VASCULAR SURGERY Left 11/02/2024 EXCISION OF LEFT UPPER EXTREMITY INFECTED GRAFT (JIM) VASCULAR SURGERY Left 11/05/2024 REVISION OR REPAIR, AV FISTULA (JIM) Immunization History: Immunization History Administered Date(s) Administered Moderna SARS-CoV-2 Vaccination 07/24/2020, 08/21/2020, 03/05/2021 Active Problems: Medical Problems Problem List * (Principal) Fall, initial encounter Hypertensive emergency Gastrointestinal hemorrhage, unspecified gastrointestinal hemorrhage type Pulmonary edema, acute (HCC) Shortness of breath COVID-19 Edema of left lower extremity Sepsis, due to unspecified organism, unspecified whether acute organ dysfunction present (HCC) Seizures (HCC) ESRD (end stage renal disease) (HCC) Dialysis patient (HCC) Wound dehiscence End stage congestive heart failure (HCC) Fall (on)(from) sidewalk curb, initial encounter Anemia Isolation/Infection: Contact CRE Nurse Assessment: Last Vital Signs: BP 149/85 Pulse 94 Temp 36 C (96.8 F) (Temporal) Resp 18 Ht 1.64 m (5' 4.57) Wt 52.8 kg (116 lb 4.8 oz) SpO2 100% BMI 19.61 kg/m Last documented pain score (0-10 scale): Last Weight: Wt Readings from Last 1 Encounters: 12/11/24 52.8 kg (116 lb 4.8 oz) Mental Status: SHERIE Patient Mental Status: disoriented, oriented, and alert IV Access: SHERIE IV Access: Dialysis Catheter - site: subclavian left, condition patent and no redness, insertion date: unknown Nursing Mobility/ADLs: Walking Minimal assistance Transfer Minimal assistance Bathing Total assistance Dressing Total assistance Toileting Total assistance Feeding Minimal assistance Retail Marketing Specialist Minimal assistance Med Delivery no Wound Care Documentation and Therapy: Wound/Incision 09/26/24 Pressure Injury Buttock Left (Active) Site Assessment Red 12/11/242316 Wound Length (cm) 2.5 cm 12/10/242099 Wound Width (cm) 1 cm 12/10/242099 Wound Surface Area (cm^2) 1.96 cm^2 12/10/242099 Odor None 12/11/242316 Drainage Amount None 12/11/242316 Treatments Site care 12/11/242316 Primary Dressing Foam 12/10/242099 Number of days: 76 Elimination: Continence: Bowel: no Bladder: no Urinary Catheter: None Colostomy/Ileostomy/Ileal Conduit: None Date of Last BM: 12/20/2024 Intake/Output Summary (Last 24 hours) at 12/12/2024 1224 Last data filed at 12/11/2024 1613 Gross per 24 hour Intake 0 ml Output -- Net 0 ml I/O last 3 completed shifts: In: 160 (3 mL/kg) [P.O.:160] Out: - (0 mL/kg) Weight: 52.8 kg Safety Concerns: history of falls (last 30 days) and history of seizures Impairments/Disabilities: none Nutrition Therapy: Current Nutrition Therapy: Oral diet: general and full liquid Routes of Feeding: oral Liquids: thin liquids Daily Fluid Restriction: no Last Modified Barium Swallow with Video (Video Swallowing Test): not done Treatments at the Time of Hospital Discharge: Respiratory Treatments: N/A Oxygen Therapy: is not on home oxygen therapy. Ventilator: No ventilator support Rehab Therapies: physical therapy and occupational therapy Weight Bearing Status/Restrictions: no restriction Other Medical Equipment (for information only, NOT a DME order): bedside commode Other Treatments: Patient's personal belongings (please select all that are sent with patient): none RN SIGNATURE: MANAGEMENT/SOCIAL WORK SECTION Inpatient Status Date: 12/12 [facility] Address: [address] [place] [id number] Dialysis Facility (if applicable) Name: [facility] Address: Dialysis Schedule: Phone: Fax: Central Supply Nurse/[employer] Bus Driver signature: ICIAN SECTION Name: Apoorva Gonzalez Prognosis: good Condition at Discharge: stable Rehab Potential (if transferring to Rehab): good Recommended Labs or Other Treatments After Discharge: cbc bmp in 3 days The individual is being admitted to a nursing facility directly from an [facility] or a unit of a [facility] that is not operated by or licensed by [facility] under section 5119.14 or 5160-3-15.1 5 The individual requires the level of services provided by a nursing facility for the condition for which he or she was treated in the hospital and, Physician Certification: I certify the above information and transfer of Apoorva Gonzalez is necessary for the continuing treatment of the diagnosis listed and that she requires halfway facility for less than 30 days. Update Admission H&P: No change in H&P PHYSICIAN SIGNATURE: documented in this encounter [facility] 12-16-2024 Consult note Associated Order (s): IP CONSULT TO ACUTE CARE SURGERY Department of General Surgery Surgical Service - ACS Resident Consult Note 12/16/2024 Subjective Subjective: CHIEF COMPLAINT: Chief Complaint Patient presents with Fall Pt presents to ED for mechanical fall while at dinner. Pt family states pt fell backwards and hit her head and now has lump on head, denies LOC. Denies blood thinners. Reason for Consult: abdominal wall hematoma vs perforated viscus HISTORY OF PRESENT ILLNESS: Apoorva Gonzalez is a 74 y.o. female with significant past medical history of ESRD on HD, AVG placement (2022, Dr. Fernandez), excision of infected graft and evacuation of hematoma, chronic anemia, HTN, seizure disorder, A-Fib (no anticoagulation noted on chart) who presents with c/f discitis and AMS. Surgery was consulted for evaluation of above. Patient unable to provide any history given encephalopathy. Fiance bedside explained that her mental status has gotten worse over the past couple days. He denies any known abdominal pain or changes to her belly. Per chart review, unclear etiology. Negative CTH. Attempted MRI but have not been able to obtain at this time. Discussing with RN team, the RN that is currently caring for her has had her for 3 days and states her belly has looked as it does for his entire time with no significant changes. He also states Heparin subq has been injected where the Band-Aid is in the LLQ of her abdomen. On evaluation patient was: Ill appearing, encephalopathic, no acute distress AF Tachycardic to 110 peak past 24h Normal RR Hypertensive to 211/110 past 24h On RA Labs reviewed significant for: CMP Na 132 Cr 1.99 (2.80, 4.37) Albumin 1.4 (1.5) CBC WBC 10.3 (12, 13.1) Hgb 8.2 (8.3, 7.5) Plt wnl Imaging demonstrated: CT AP w/o IV contrast, personal read -- Large collection around the right rectus muscle Likely representing rectus sheath hematoma Small foci of gas in LLQ appears to be perirectus No convincing intraperitoneal gas Significant ascites and pleural effusions Medical History[1] Surgical History[2] Medications Prior to Admission: Medications Ordered Prior to Encounter[3] Allergies: Patient has no known allergies. Social History[4] Family History[5] REVIEW OF SYSTEMS: Review of Systems Unable to perform ROS: Mental status change Objective Objective: PHYSICAL EXAM: Vitals: 12/16/24 0929 BP: 123/76 Pulse: 110 Resp: Temp: SpO2: I/O last 3 completed shifts: In: 1631.6 (30.9 mL/kg) [I.V.:1606.6 (30.5 mL/kg); IV Piggyback:25] Out: 0 (0 mL/kg) Weight: 52.8 kg CONSTITUTIONAL: awake, alert, encephalopathic. NECK: Supple, symmetrical, trachea midline, no adenopathy LUNGS: No increased work of breathing, good air exchange CARDIOVASCULAR: Regular rate and rhythm ABDOMEN: mildly distended throughout with moderate distension and some firmness over the right hemiabdomen around the level of the umbilicus. Tympanic belly with some wincing indicative of TTP, but without guarding or rigidity. CHEST: no masses palpated, no axillary or supraclavicular adenopathy GENITAL/URINARY: Not examined MUSCULOSKELETAL: There is no redness, warmth, or swelling of the joints. Full range of motion noted. NEUROLOGIC: A&O x 0. Muttering nonsensical repeated sentence. Grossly moving all extremities. SKIN: normal skin color, texture, no redness, warmth, or swelling DATA: CBC: Lab Results Component Value Date WBC 10.3 12/16/2024 RBC 2.76 (L) 12/16/2024 HGB 8.2 (L) 12/16/2024 HCT 24.9 (L) 12/16/2024 MCV 90.2 12/16/2024 MCH 29.7 12/16/2024 MCHC 32.9 12/16/2024 RDW 17.2 (H) 12/16/2024 PLT 394 12/16/2024 MPV 10.6 12/16/2024 BMP: Lab Results Component Value Date NA 132 (L) 12/16/2024 K 4.0 12/16/2024 CL 99 12/16/2024 CO2 25 12/16/2024 BUN 7 (L) 12/16/2024 CREATININE 1.99 (H) 12/16/2024 CALCIUM 7.5 (L) 12/16/2024 GLUCOSE 98 12/16/2024 Hepatic Function Panel: Lab Results Component Value Date ALKPHOS 147 12/16/2024 ALT 13 12/16/2024 AST 52 (H) 12/16/2024 PROT 6.4 12/16/2024 BILITOT 0.4 12/16/2024 PT/INR: No results found for: PROTIME, INR Troponin: No results found for: TROPONINI LIPASE: No results found for: LIPASE IMAGING: CT abdomen pelvis wo IV contrast Narrative: Patient Name: APOORVA GONZALEZ : 1950 [facility]#: [id number] Exam Date/Time: 12/16/2024 13:50 Procedure: CT ABDOMEN PELVIS WO IV CONTRAST Ordering Provider: LEONARDO JOSHUA Reason For Exam: Abdominal pain, acute, nonlocalized EXAM: CT Abdomen and pelvis INDICATION: Abdominal pain COMPARISON: 10/05/2024 TECHNIQUE: CT of the abdomen and pelvis was performed without intravenous contrast. Coronal and sagittal reformats were obtained. Dose reduction was employed with automated exposure control. FINDINGS: LOWER CHEST: Moderate to large bilateral pleural effusions with compressive atelectasis of the posterior bilateral lower lobes. ABDOMEN: LIVER: There is atrophic appearance of the liver with mildly nodular contour. BILE DUCTS: normal caliber. GALLBLADDER: Hyperattenuating material noted within the gallbladder, suggesting sludge versus fine calculi. Normal caliber wall. PANCREAS: within normal limits. SPLEEN: within normal limits. ADRENALS: within normal limits. KIDNEYS: There is atrophy of the bilateral kidneys. PELVIS: REPRODUCTIVE ORGANS: Right-sided rectus sheath/pelvic collection noted below. URETERS: within normal limits. BLADDER: within normal limits. BOWEL: Bowel is normal in caliber. There is sigmoid colonic diverticulosis. No evidence of acute diverticulitis. No enlarged mesenteric lymph nodes. PERITONEUM: Few foci of intraperitoneal gas in the left lower quadrant abdominal wall subjacent to the additional foci of gas within the left rectus musculature. Moderate volume ascites. No loculated fluid collection. VESSELS: Atherosclerotic changes in the aortoiliac vessels. LYMPH NODES: No enlarged nodes. RETROPERITONEUM: within normal limits. ABDOMINAL WALL: There is a large right rectus collection with protrusion into the peritoneum into the right hemipelvis. This is partially obscured due to streak artifact from bilateral hip prostheses, but measures approximately 13 x 9 x 15 cm. The contents of the collection measures up to 20 Hounsfield units with more dense layering components along the dependent aspect, again limited due to streak artifact. There is diffuse infiltration of the subcutaneous soft tissues. There are foci of gas noted in the left lower quadrant abdominal wall. BONES: Bilateral hip arthroplasties with left acetabular protrusion with increased lucency of the left proximal femur and acetabulum. There is heterogeneous sclerosis about the right hip joint. Multilevel degenerative changes of the imaged spine noted. Impression: 1. Large 15 cm indeterminate right rectus sheath collection extending to the right hemipelvis. Acute hemorrhage is not excluded. Correlate clinically. 2. Foci of gas in the left lower quadrant abdominal wall with subjacent intraperitoneal foci of gas, mostly likely related to subcutaneous injections. Perforated viscus is not excluded. Recommend correlation with serial abdominal exams. 3. Anasarca with moderate large bilateral pleural effusions and moderate volume ascites. 4. Additional chronic findings as above. CTR communication: Results of exam were conveyed to Dr. Desouza on 12/16/2024 at 5:42 PM Report Dictated on Electronically Signed By: Balta Ruvalcaba MD Electronically Signed Date/Time: 12/16/2024 5:51 PM EDT Labs Lab Results Component Value Date NA 132 (L) 12/16/2024 K 4.0 12/16/2024 CL 99 12/16/2024 CO2 25 12/16/2024 BUN 7 (L) 12/16/2024 CREATININE 1.99 (H) 12/16/2024 GLUCOSE 98 12/16/2024 CALCIUM 7.5 (L) 12/16/2024 PROT 6.4 12/16/2024 BILITOT 0.4 12/16/2024 ALKPHOS 147 12/16/2024 AST 52 (H) 12/16/2024 ALT 13 12/16/2024 Lab Results Component Value Date WBC 10.3 12/16/2024 HGB 8.2 (L) 12/16/2024 HCT 24.9 (L) 12/16/2024 MCV 90.2 12/16/2024 PLT 394 12/16/2024 Imaging XR hip left 2 or 3 views Result Date: 12/09/2024 Patient Name: APOORVA GONZALEZ : 1950 Exam Date/Time: 12/09/2024 05:25 Procedure: XR HIP 2 OR 3 VW LEFT Ordering Provider: SHEPHERD KYLE Reason For Exam: PAIN; Fall PELVIS AND LEFT HIP: CLINICAL INDICATION: PAIN; Fall. TECHNIQUE: AP pelvis plus two views of the left hip COMPARISON: CT abdomen pelvis from 09/26/2024 FINDINGS: There is no evidence for fracture or dislocation. Bilateral hip arthroplasties remain in adequate alignment. There is some ossification adjacent to the greater trochanter on the right. Osteopenia is noted. The sacroiliac joints are unremarkable. No bone lesion is identified. No abnormal soft tissue calcifications are noted. Arthroplasties in adequate alignment. No acute abnormality. Report Dictated on Electronically Signed By: Honorio Grande MD Electronically Signed Date/Time: 12/09/2024 5:[address] head wo IV contrast Result Date: 12/08/2024 Patient Name: APOORVA GONZALEZ : 1950 Exam Date/Time: 12/08/2024 21:25 Procedure: CT HEAD WO IV CONTRAST Ordering Provider: MUNSON ANDREW Reason For Exam: fell hit head CT head without contrast History: Fall, pain Technique: 3 mm axial images through the head without IV contrast Dose reduction was employed with automated exposure control. Comparison: 10/05/2024 There is no evidence of intracranial hemorrhage, extra-axial fluid collection, hydrocephalus, or acute infarct. Chronic white matter ischemic changes. No evidence of a mass of mass affect. The visualized portions of the paranasal sinuses and the mastoid air cells are clear. CT cervical spine without contrast TECHNIQUE: 1 mm axial images through the neck without intravenous contrast, multiplanar reconstructions Endplate erosive changes at the C3/C4 intervertebral disc. MRI may be helpful to evaluate for discitis. Moderate C5/C6 discogenic degenerative changes. No fracture or dislocation. Endplate erosive changes at the C3/C4 intervertebral disc. MRI may be helpful to evaluate for discitis. Report Dictated on Electronically Signed By: Norman Malin MD Electronically Signed Date/Time: 12/08/2024 9:[address] cervical spine wo IV contrast Result Date: 12/08/2024 Patient Name: APOORVA GONZALEZ : 1950 Exam Date/Time: 12/08/2024 21:25 Procedure: CT CERVICAL SPINE WO IV CONTRAST Ordering Provider: MUNSON ANDREW Reason For Exam: fall CT head without contrast History: Fall, pain Technique: 3 mm axial images through the head without IV contrast Dose reduction was employed with automated exposure control. Comparison: 10/05/2024 There is no evidence of intracranial hemorrhage, extra-axial fluid collection, hydrocephalus, or acute infarct. Chronic white matter ischemic changes. No evidence of a mass of mass affect. The visualized portions of the paranasal sinuses and the mastoid air cells are clear. CT cervical spine without contrast TECHNIQUE: 1 mm axial images through the neck without intravenous contrast, multiplanar reconstructions Endplate erosive changes at the C3/C4 intervertebral disc. MRI may be helpful to evaluate for discitis. Moderate C5/C6 discogenic degenerative changes. No fracture or dislocation. Endplate erosive changes at the C3/C4 intervertebral disc. MRI may be helpful to evaluate for discitis. Report Dictated on Electronically Signed By: Norman Malin MD Electronically Signed Date/Time: 12/08/2024 9:32 PM EDT Assessment and Plan: ASSESSMENT AND PLAN: This is a 74 y.o. female with likely rectus sheath hematoma for at least 3 days, and likely iatrogenic injury from subq heparin injections given extremely small habitus No acute surgical intervention - no convincing evidence of intraperitoneal air - reviewing previous CT A/P in October a similar tract of air in the subq and rectus abdominis region was seen, stable - ascites was also previously seen, although less significant - surgery to follow for serial exams - hgb remains stable for >24h. Was low 12/14 at 7.5 - trend hgb - rest of care per primary team Patient discussed with attending, Dr. Crane . Balta Benedict MD General Surgery Resident 12/16/24 6:39 PM This note may have been dictated using [employer] Edition 2.6 and/or [employer] Voice Recognition Feature. The document was proofread; however, unrecognized voice recognition liquefied natural gas plant operator errors may be present. [1] Past Medical History: Diagnosis Date Chronic kidney disease (CKD) Hemodialysis patient (CMS/HCC) (HCC) Wednesday, , Wednesday History of blood transfusion 02/27/2022 Hypertension Seizure (HCC) Developed seizure-like activity on 02/24 during hospital admission [2] Past Surgical History: Procedure Laterality Date AV FISTULA PLACEMENT Left 08/07/2022 COLONOSCOPY N/A 01/25/2024 Performed by Chrissy Gilman MD at [facility] ENDOSCOPY IR CVC TUNNELED DIALYSIS CATHETER PLACEMENT 02/27/2022 IR CVC TUNNELED CATHETER PLACEMENT 02/27/2022 Candis Andrade MD [facility] SPECIAL PROCEDURES IR EMBOLIZATION 01/24/2024 IR EMBOLIZATION 01/24/2024 Jovan Glynn MD [facility] SPECIAL PROCEDURES VASCULAR SURGERY Left 11/02/2024 EXCISION OF LEFT UPPER EXTREMITY INFECTED GRAFT (JIM) VASCULAR SURGERY Left 11/05/2024 REVISION OR REPAIR, AV FISTULA (JIM) [3] Current Facility-Administered Medications Medication Dose Route Frequency Provider Last Rate Last Admin acetaminophen (Tylenol) tablet 650 mg 650 mg Oral q4h PRN Radha Kuzmin, DO Or Acetaminophen (Tylenol) 650 MG/20.3ML solution 650 mg 650 mg Oral q4h PRN Radha Kuzmin, DO Or acetaminophen (Tylenol) suppository 650 mg 650 mg Rectal q4h PRN Radha Kuzmin, DO acetaminophen (Tylenol) tablet 1,000 mg 1,000 mg Oral q8h Radha Kuzmin, DO 1,000 mg at 12/14/24 0540 alteplase (Cathflo Activase) 2 mg in sterile water 2 mL injection 2 mg IntraCATHeter PRN Sean Castaneda MD 2 mg at 12/13/242147 alteplase (Cathflo Activase) 2 mg in sterile water 2 mL injection 2 mg IntraCATHeter PRN Sean Castaneda MD 2 mg at 12/13/242147 amLODIPine (Norvasc) tablet 10 mg 10 mg Oral Daily Radha Kevin, DO 10 mg at 12/16/24901 atorvastatin (Lipitor) tablet 40 mg 40 mg Oral Nightly John Shepherd, DO 40 mg at 12/15/242055 B complex-vitamin C-folic acid (Nephrocaps) capsule 1 capsule 1 capsule Oral Daily John Shepherd DO 1 capsule at 12/16/24 09 cholecalciferol (Vitamin D-3) tablet 5,000 Units 5,000 Units Oral Daily John Shepherd, DO 5,000 Units at 12/16/24 09 dextrose 5 % infusion 100 mL/hr IntraVENous PRN Ramonita Garnett NP 100 mL/hr at 12/16/24 1438 100 mL/hr at 12/16/24 1438 dextrose 50 % solution 12.5 g 12.5 g IntraVENous PRN Ramonita Garnett NP 12.5 g at 12/12/24 2230 gadopiclenol (Vueway) injection 5 mL 5 mL IntraVENous Once PRN Radha Paredesmin, DO glucagon (human recombinant) injection 1 mg 1 mg IntraMUSCular PRN Ramonita Garnett NP glucose oral gel 15 g 15 g Oral PRN Ramonita Garnett NP heparin injection 1,200-2,000 Units 1,200-2,000 Units IntraCATHeter PRN Jose G P Zidehsarai, DO 2,100 Units at 12/14/24 1245 heparin injection 1,200-2,000 Units 1,200-2,000 Units IntraCATHeter PRN Jose G P Zidehsarai, DO 2,100 Units at 12/14/24 1245 heparin injection 5,000 Units 5,000 Units SubCUTAneous 3 times per day Leticia Leonardo, DO 5,000 Units at 12/16/24 1302 HYDROmorphone (Dilaudid) injection 0.25 mg 0.25 mg IntraVENous q4h PRN Chris Verdugo MD Or HYDROmorphone (Dilaudid) injection 0.5 mg 0.5 mg IntraVENous q4h PRN Chris Verdugo MD 0.5 mg at 12/16/24 1444 labetalol (Normodyne,Trandate) injection 10 mg 10 mg IntraVENous q6h PRN Radha Paredesmin, DO 10 mg at 12/15/242055 levETIRAcetam (Keppra) tablet 500 mg 500 mg Oral Daily John Shepherd, DO 500 mg at 12/16/24 09 Lidocaine 4 % patch 1 patch 1 patch TransDERmal Daily Radha Kuzmin, DO melatonin tablet 5 mg 5 mg Oral Nightly PRN Eileen Duncan APRN - AGENCY TRAINER 5 mg at 12/15/242055 meropenem (Merrem) 1,000 mg in sodium chloride 0.9 % 100 mL IVPB 1,000 mg IntraVENous q12h Shamar More MD Stopped at 12/16/24 1637 naloxone (Narcan) injection 0.4 mg 0.4 mg IntraVENous q5 min PRN Radha Paredesmin, DO ondansetron ODT (Zofran-ODT) disintegrating tablet 4 mg 4 mg Oral q8h PRN John Shepherd, DO Or ondansetron (Zofran) injection 4 mg 4 mg IntraVENous q6h PRN John Stuartz, DO oxyCODONE (Roxicodone) immediate release tablet 2.5 mg 2.5 mg Oral q4h PRN Radha Paredesmin, DO oxyCODONE (Roxicodone) immediate release tablet 5 mg 5 mg Oral q4h PRN Radha Paredesmin, DO 5 mg at 12/11/24 2250 polyethylene glycol (PEG) 3350 (Miralax) packet 17 g 17 g Oral Daily PRN John Stuartz, DO 17 g at 12/10/24 1204 pregabalin (Lyrica) capsule 25 mg 25 mg Oral BID PRN Radha Paredesmin, DO 25 mg at 12/11/24 1052 QUEtiapine (SEROquel) tablet 12.5 mg 12.5 mg Oral BID PRN Eileen Duncan, PARK - AGENCY TRAINER sodium chloride 0.9 % infusion 250 mL/hr IntraVENous PRN John Stuartz, DO sodium chloride 0.9 % infusion 5-250 mL/hr IntraVENous PRN John Stuartz, DO sodium chloride 0.9 % infusion 250 mL/hr IntraVENous PRN Ramonita Garnett, BRAY[place] sodium chloride 0.9% (NS) flush 5-40 mL 5-40 mL IntraVENous q12h John Stuartz, DO 10 mL at 12/16/24 0512 sodium chloride 0.9% (NS) flush 5-40 mL 5-40 mL IntraVENous PRN John Shepherd, DO stomahesive in petrolatum (ET Mix) Topical 3 times per day PARK Colin CNP Given at 12/16/24 1303 stomahesive in petrolatum (ET Mix) Topical PRN PARK Colin CNP Given at 12/13/24 1748 thiamine (Vitamin B1) 500 mg in sodium chloride 0.9 % 100 mL IVPB 500 mg IntraVENous TID Leticia Leonardo DO Stopped at 12/16/24 1518 vancomycin (Vancocin) intermittent dosing (placeholder) Other RX Placeholder Radha Kevin DO [4] Social History Socioeconomic History Marital status: Tobacco Use Smoking status: Never Smokeless tobacco: Never Vaping Use Vaping status: Never Used Substance and Sexual Activity Alcohol use: Yes Alcohol/week: 2.0 standard drinks of alcohol Types: 2 Glasses of wine per week Comment: weekly Drug use: Never Social Drivers of Health Financial Resource Strain: Low Risk (12/09/2024) Overall Financial Resource Strain (CARDIA) Difficulty of Paying Living Expenses: Not hard at all Food Insecurity: No Food Insecurity (12/09/2024) Hunger Vital Sign Worried About Running Out of Food in the Last Year: Never true Ran Out of Food in the Last Year: Never true Transportation Needs: No Transportation Needs (12/09/2024) PRAPARE - Transportation Lack of Transportation (Medical): No Lack of Transportation (Non-Medical): No Physical Activity: Insufficiently Active (12/09/2024) Exercise Vital Sign Days of Exercise per Week: 1 day Minutes of Exercise per Session: 10 min Stress: Stress Concern Present (12/09/2024) [place] [employer] - Occupational Stress Questionnaire Feeling of Stress : Very much Social Connections: Moderately Integrated (12/09/2024) Social Connection and Isolation Panel [NHANES] Frequency of Communication with Friends and Family: More than three times a week Frequency of Social Gatherings with Friends and Family: Three times a week Attends [employer] Services: 1 to 4 times per year Active Member of Clubs or Organizations: Yes Attends Club or Organization Meetings: Never Marital Status: Intimate Partner Violence: Not At Risk (12/09/2024) Humiliation, Afraid, Rape, and Kick questionnaire Fear of Current or Ex-Partner: No Emotionally Abused: No Physically Abused: No Sexually Abused: No Housing Stability: Low Risk (12/09/2024) Housing Stability Vital Sign Unable to Pay for Housing in the Last Year: No Number of Times Moved in the Last Year: 0 Homeless in the Last Year: No [5] Family History Problem Relation Name Age of Onset Dementia Mother Stroke Father Prostate cancer Brother 69 Breast cancer Cousin 32 Stomach cancer Mother's Sister 70 Cosigned by Christine Crane MD at 12/16/2024 8:49 PM EDT Associated attestation - Christine Crane MD - 12/16/2024 8:49 PM EDT ~~~~~~~~~~~~~~~~~~~~~~~~~~~~~~~~~ ~~~~~~~~~~~~~~~~~~~~~~~~~~~~ ATTENDING ADDENDUM Problem List[1] I independently saw the above patient and reviewed the recent events, imaging, labs, vital signs; I performed a physical exam and ROS on the same date of service as above. My findings agree with the above note except for any details corrected below. A complete review of systems was obtained and is negative except as stated in HPI. HPI: 74 y.o. female with significant past medical history of ESRD on HD, AVG placement (2022, Dr. Fernandez), excision of infected graft and evacuation of hematoma, chronic anemia, HTN, seizure disorder, A-Fib (no anticoagulation noted on chart) who presents with c/f discitis and AMS. Surgery was consulted for evaluation of above. Patient unable to provide any history given encephalopathy. Fiance bedside explained that her mental status has gotten worse over the past couple days. He denies any known abdominal pain or changes to her abdomen. Discussing with RN team, the RN that is currently caring for her has had her for 3 days and states her belly has looked as it does for his entire time with no significant changes. He also states Heparin subq has been injected where the Band-Aid is in the LLQ of her abdomen. Imaging reviewed and independently interpreted: CT -> noted R rectus sheath hematoma, noted L sided intraperitoneal foci of gas --> agree that these are most likely related to subcu injections, no signs of fat stranding. Increased ascites compared to the last CT scan Problem list: Acute, acute on chronic, unstable or uncontrolled chronic problems/diagnoses: Suspect spontaneous R rectus sheath hematoma Anasarca Foci of pneumoperitoneum LLQ --> likely 2/2 heparin injections Stable chronic problems, affecting patient care: Medical History[2] 24H: No leukocytosis Hyponatremia 128 Hgb 8.2 from 8.3 HR 90s-100 HTN Afebrile Abd exam - Palpable rectus sheath hematoma on the right - Abdomen is distended however soft, no signs of peritonitis -Band-Aid over left lower quadrant heparin injection site - Patient does not grimace when palpating her abdomen Management: No acute surgical intervention R rectus sheath hematoma - suspect this happened at least 3 days ago given nursing report and Hgb levels. Hgb is stable at this time. Conservative management at this time. Ok to cont heparin. Foci of pneumoperitoneum LLQ --> likely 2/2 heparin injections - patient is thin. Recommend heparin injections away from abdominal wall. Foci of air correlate with heparin injection sites. Serial abdominal exams. As needed antiemetics. MEDS: Scheduled PRN Scheduled Meds[3] PRN Meds[4] Continuous Continuous Meds[5] Patient evaluated on 12/16/2024 Level of Medical Decision Making: risk of morbidity from additional diagnostic testing or treatment []High [x]Moderate []Low Complexity: Acute illness with systemic symptoms (MOD) Personally Reviewed/Independently interpreted patient's: [x]Epic notes: []Prop And Effects Designer notes, []Nursing notes, []Case management/SW [x]Radiology studies: [x]CT, []CXR, []AXR, []Pelvic XR [x]Labs: [x]CBC, []BMP, []CMP/LFTs, []PT/INR []EKG []Ordering tests []Other Discussed/ With: [x]Patient/Family: []Spouse, []Son/Daughter, []Mother/Father, []Friend []RN []Consultants: []Ortho, []Geriatrics, []Palliative, []PRS, []Nephro, []NCC, []NSG, []Cards IP CONSULT TO NEPHROLOGY IP CONSULT TO GERIATRICS PHARMACY TO DOSE VANCO IP CONSULT TO WOUND PREVENTION INPATIENT CONSULT TO WOUND CARE PROVIDERS IP CONSULT TO INFECTIOUS DISEASES IP CONSULT TO PALLIATIVE CARE IP CONSULT TO ORTHOPAEDIC SURGERY IP CONSULT TO DIETITIAN IP CONSULT TO SPIRITUAL SERVICES IP CONSULT TO ACUTE CARE SURGERY []SW/TCC []Other I spent total time of 61 minutes reviewing previous notes (IM), test results, and face to face with Apoorva Gonzalez discussing the diagnosis (see above) and importance of compliance with the treatment plan as well as documenting on the day of the visit. Time was spent, Reviewing medical record including recent tests and results Ordering prescription medications/tests and procedures Communicating results to the patient/family/caregiver Counseling/educating the patient/family/caregiver Documenting clinical information the patient's electronic record Coordination of care for the patient Performing a medical appropriate exam and evaluation ~~~~~~~~~~~~~~~~~~~~~~~~~~~~~~~~~ ~~~~~~~~~~~~~~~~~~~~~~~~~~~~ This note may have been dictated using [employer] Medical Practice Edition 2.6 and/or [employer] Voice Recognition Feature. The document was proofread; however, unrecognized voice recognition liquefied natural [employer] plant operator errors may be present. [1] Patient Active Problem List Diagnosis Hypertensive emergency Gastrointestinal hemorrhage, unspecified gastrointestinal hemorrhage type Anemia Pulmonary edema, acute ([facility]) Shortness of breath COVID-19 Edema of left lower extremity Sepsis, due to unspecified organism, unspecified whether acute organ dysfunction present ([facility]) Seizures ([facility]) ESRD (end stage renal disease) ([facility]) Dialysis patient ([facility]) Wound dehiscence End stage congestive heart failure ([facility]) Fall, initial encounter Fall (on)(from) sidewalk curb, initial encounter Moderate malnutrition ([facility]) ([facility]) [2] Past Medical History: Diagnosis Date Chronic kidney disease (CKD) Hemodialysis patient ([facility]) ([facility]) Wednesday, , Wednesday History of blood transfusion 02/27/2022 Hypertension Seizure ([facility]) Developed seizure-like activity on 02/24 during hospital admission [3] acetaminophen, 1,000 mg, Oral, q8h amLODIPine, 10 mg, Oral, Daily atorvastatin, 40 mg, Oral, Nightly B complex-vitamin C-folic acid, 1 capsule, Oral, Daily cholecalciferol, 5,000 Units, Oral, Daily heparin, 5,000 Units, SubCUTAneous, 3 times per day levETIRAcetam, 500 mg, Oral, Daily Lidocaine, 1 patch, TransDERmal, Daily meropenem, 1,000 mg, IntraVENous, q12h sodium chloride 0.9%, 5-40 mL, IntraVENous, q12h stomahesive in petrolatum, , Topical, 3 times per day thiamine, 500 mg, IntraVENous, TID vancomycin (Vancocin) intermittent dosing (placeholder), , Other, RX Placeholder [4] PRN medications: acetaminophen OR acetaminophen OR acetaminophen, alteplase (Cathflo Activase) 2 mg in sterile water 2 mL injection, alteplase (Cathflo Activase) 2 mg in sterile water 2 mL injection, dextrose, dextrose, gadopiclenol, glucagon (rDNA), glucose, heparin, heparin, HYDROmorphone OR HYDROmorphone, labetalol, melatonin, naloxone, ondansetron ODT OR ondansetron, oxyCODONE, oxyCODONE, polyethylene glycol (PEG) 3350, pregabalin, QUEtiapine, sodium chloride, sodium chloride, sodium chloride, sodium chloride 0.9%, stomahesive in petrolatum [5] Associated Order(s): IP CONSULT TO DIETITIAN Nutrition Assessment Type and Reason for Visit: Reassess, Consult (new consult for poor appetite) Nutrition Recommendations/Plan: Continue with fully liberalized diet as ordered; pt is Dietary Assist to ensure meal orders are being placed appropriately. Per MNT protocol for now will discontinue Nepro ONS d/t accumulating in room, if pt's mentation improves or she is interested in drinking Nepro can always pour over a little bit of ice; seems in prior admit pt had favored Magic Cup, will increase frequency to BID; favor ONS with higher kcal, unclear if pt would be receptive to option like [place]. Please record % consumed of meals in I/O Flowsheet. RD to monitor weight, labs, fluid, GOC & follow up weekly. Malnutrition Assessment: Malnutrition Status: Moderate malnutrition (pt has ^ nutritional needs that are not consistently being met, paired with several recent admissions, current altered mentation) Context: Acute Illness (clearly on chronic, several recent admissions noted) Findings of the 6 clinical characteristics of malnutrition: Energy Intake: 75% or less of estimated energy requirements for 7 or more days (historically when pt admitted she has variable PO intakes and ? intake of ONS however when assessed by this RD on 11/01 pt reported liking Magic Cup a lot, currently ordered this) Weight Loss: Unable to assess (variable weights historically, also need to consider pt's PMH including ESRD, 116# previously noted/questioned by RD 12/11, could not obtain new weight today; last EDW 104# (may be several months old)) Body Fat Loss: Mild body fat loss Buccal region, Orbital Muscle Mass Loss: Mild muscle mass loss (pt has previously been noted to have at least mild losses possibly at baseline, RD today questions if further exacerbated recently?) Temples (temporalis), Clavicles (pectoralis & deltoids) Fluid Accumulation: Mild Extremities, Generalized Property Condition Assessor Strength: Not Performed Nutrition Assessment: Pt with PMH including ESRD on HD, PSH AV graft placement (2022), excision of infected LUE AV graft 11/02/2024, and evacuation of LUE hematoma on 11/05/2024, chronic anemia requiring blood transfusions, HTN, seizure disorder, A-fib, hx of C diff who initially presented to the ED s/p fall (per chart, pt usually uses wheelchair, but stood up to try to help her family member and fell backwards, hitting her head on the pavement, there was no LOC), pt had mild leukocytosis of 11.2, Hgb 6.9, and K 2.6, received 1 unit pRBC, CT head and cervical spine showed endplate erosive changes at the C3/C4 intervertebral disc; Ortho consulted, MRI cervical spine ordered to evaluate for epidural abscess and need for operative intervention, as well as MRI brain (pt was refusing MRI); pt note, pt admitted 08/14-08/24 for infected hematoma in right thigh and anterior hip that was drained, then returned to the hospital for expanding hematoma requiring 2 units pRBC, from 09/13-10/12 pt was treated for new onset A-fib in the setting of COVID, and was positive for Enterobacter cloaecae bacteremia, Klebsiella pneumoniae, Klebsiella oxytoca, and Enterococcus casseliflavus, she was treated in the ICU transiently due to high fevers, tachycardia, and tachypnea, possibly related to the meropenem she was on and transitioned to Cefdinir and Linezolid until 10/19, she was also treated for C diff colitis, at that time, she was d/c to nursing facility on tunneled HD catheter, on 10/22 there was concern for fistula infection and she had excision of the left upper extremity infected graft on 11/02, left arm culture grew Enterobacter cloacae, ID recommended Bactrim renally dosed through 11/13, pt was having bleeding from AV fistula requiring blood transfusions and on 11/05 she had ex lap of the left upper extremity with evacuation of hematoma; multiple services consulted here including Ortho and ID (for suspected diskitis and recent fistula infection); on 12/12 while here pt had unwitnessed fall in room, sitter was placed and work-up completed; pt also noted to disoriented here, currently disoriented x4. Pt moaning a lot. Geriatrics following, Palliative Care also consulted/following (lacks decision making capacity), 12/13 pt's leukocytosis increased to 16.5, Hgb 8.0, CRP 133, ESR pending, blood cultures show no growth at 24 hours. MRI c-spine unable to tolerate, decision made for sedated MRI (being expedited to tomorrow), needs MRI brain still as well; it was also noted yesterday that pt required soft wrist restraints d/t pt being fidgety and pulling dialysis lines during session, haldol was given to settle pt, dialysis session ended d/t poor access of vas cath, re-attempting today. RD visited pt's room this afternoon right when dialysis was finishing up (OP- 2.4L), pt had been ordered Regular diet however today was made NPO for ~4 hours, lunch tray was delayed but being made currently, pt did receive a breakfast tray and is noted to be dietary assist. Entire time RD in room (pt remained in soft restraints, VM in room) pt kept eyes tightly closed, 3 Nepro were present at bedside, RD let pt know lunch would be arriving soon but disoriented x4 and did not open eyes/make any statements to RD and no visitors were present, bedscale not reading CBW. Nutrition Related Findings: pos I/O (3L); +BS, last BM 12/13; +1 generalized/BLE and trace BUE edema; disoriented x4, impulsive; medications include nephrocaps, renvela; labs: Na (130), SCr (4.37) Wound Type: Pressure Injury, Stage III (L buttock) Current Nutrition Therapies: NPO diet Adult diet Regular Current Oral Intake Average Meal Intake: 0%, 1-25%, 26-50%, 51-75%, Refusing to eat (pt historically has varied PO intakes when admitted, likely acutely exacerbated by altered mentation) Average Supplements Intake: Unable to assess (3 Nepro accumulated in room) Anthropometric Measures: Height: 164 cm (5' 4.57) Current Body Weight: (116# noted by prior RD on 12/11) Admission Body Weight: 50.3 kg (111 lb) (stated) Usual Body Weight: (Most recent EDW 47.1kg (104#) from 09/2024. Wt usually range between 105-121# during admissions since August 2024. Wts prior to that within the past year between 105-112#.) [place] Body Weight (lbs) (Calculated): 123 lbs [place] Body Weight (Kg) (Calculated): 56 kg % [place] Body Weight (Calculated): 94.6 % BMI (kg/m2) (Calculated): 19.6 Weight Adjustment For: No Adjustment BMI Categories: Underweight (BMI less than 22) age over 65 Nutrition Diagnosis: Increased nutrient needs related to renal dysfunction as evidenced by dialysis Nutrition Interventions: Nutrition Education/Counseling: Education not appropriate Coordination of Nutrition Care: Continue to monitor while inpatient Plan of Care discussed with: N/A Goals: Previous Goal Met: No Progress toward Goal(s) Goals: PO intake 50% or greater, by next RD assessment Nutrition Monitoring and Evaluation: Behavioral-Environmental Outcomes: None Identified Food/Nutrient Intake Outcomes: Food and Nutrient Intake, Supplement Intake Physical Signs/Symptoms Outcomes: Biochemical Data, Fluid Status or Edema, Meal Time Behavior, Nutrition Focused Physical Findings, Skin, Weight Discharge Planning: Too soon to determine Alexus Denney RD Contact: Secure chat or *[phone] Associated Order(s): IP CONSULT TO PALLIATIVE CARE Images from the original note were not included. Palliative Care Initial Consult Chief Complaint: Apoorva Gonzalez is a 74 y.o. female with chief complaint of fall. Palliative Care is actively following. Assessment/Plan Goals of care - Apoorva Gonzalez lacks capacity for medical decision-making due to encephalopathy. - legal surrogate decision maker is SHADY, Brother Deshawn Crystal ( ) Alternate is s/o Edward Ruggiero [phone]) -goals of care include: 1) discussed with Deshawn. Goal is to continue current management. Updated on clinical course as well and plan for MRI Wednesday with sedation. Discussed code status as previously had been in computer as DNR CCA ok for ICU transfer, but is listed as no ICU transfer as this time. He states patient would not want CPR or to be on a ventilator, even short term, however would want to be transferred to the ICU if necessary. Order changed in computer. Acute Encephalopathy - unclear etiology, likely multifactorial - infection, medication side effect, pain, cefepime? - appears to be worsening each day - geriatrics following - does not appear to be related to opioids as hasn't received in 2 days. Possibly pain is contributing and does moan at times, will add injectable dilaudid for pain control. Sepsis - BCX neg to date - WBC increased today - ID consulted - abx per ID and primary Mechanical fall Debility - normally in wheelchair, was standing to help someone and fell backwards - PT/OT Pain - pain appears to be s/p fall, although patient encephalopathic and unable to participate - continue scheduled tylenol - continue lidocaine patch - oxycodone 2.5-5 mg q4 prn - will add dilaudid 0.25 mg q4 hrs prn as patient not taking po this afternoon C3/C4 erosive changes - attempting to get MRI c-spine to rule out discitis, has been unable to obtain so far due to pain/anxiety - abx per primary team - ortho consulted as well, awaiting MRI results - MRI not able to be done until Wednesday under sedation History of Constipation - last large BM 12/11 - normally has only every couple of days at home - continue bowel regimen ESRD on HD - Wed History of seizures - remains on home [facility] Palliative Care Encounter -Code Status: DNR-CCA - will continue to follow for ongoing monitoring of progression of encephalopathy as well as for appropriateness for hospice care due to ESRD, sepsis, encephalopathy - was residing at [facility] Time Stamp: Total of 90 minutes spent on this encounter including Chart review, Patient visit and exam, Documentation in EHR, Care coordination, Communicating with primary attending or other consultants, Obtaining and/or reviewing separately obtained history, and Counseling and educating patient/family/caregiver. Discharge planning: Not ready for discharge due to ongoing medical work-up/critical illness Patient meets criteria for general inpatient hospice care: No Palliative Care IDT members involved: None Discussed the plan of care with the other interdisciplinary team (IDT) members of the Palliative Care and Hospice teams and Family and Primary Attending. Subjective: Subjective/Events Apoorva Gonzalez is a 74 y.o. female with history of ESRD on HD. 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 Developed hematoma after that and returned to OR 11/05. Presented after a fall at dinner. Her CT head showed no acute intracranial process, CT neck did show errosive changes of C3/4. Found to have low potassium, admitted for monitoring. Plan also to get MRI c-spine to rule out discitis. She has been unable to get this thus far due to anxiety and has had worsening alteration in mentation. Palliative Care consulted for goals of care. 12/13/2024 - Patient is restless, confused, not conversant. Unable to provide history. Did call Deshawn DE LEÓN on phone. Introduced the palliative care service to the patient and/or family. Discussed that we see patients with serious illnesses. Our role is to assist with pain and symptom management and to support the patient and family to promote quality of life. We at times also assist in discussions regarding goals of care and clinical decisions. Discussed patients clinical course, discussed that patients mental status has been worsening the last several days, and her white count is also up today. Discussed plan to get MRI, and that current getting antibiotics. He shared that immediately prior to being admitted, she was only very slightly confused, but was conversant. She is wheelchair bound. Discussed goals, including current treatment and work up, and he states she would want current management at this time. Discussed code status. He shared that she would be ok with Icu transfer but would not want CPR or intubation. He is planning to come visit tomorrow around 1pm. Pain Assessment Unable due to Encephalopathy Advance Care Planning Advanced Care Planning Conversation Pertinent Diagnosis/es: encephalopathy, sepsis, ESRD The patient and/or surrogate consented to a voluntary Advance Care Planning conversation. Apoorva Gonzalez lacks capacity for medical decision-making due to encephalopathy. Individuals present included: Patient and HCPOA (Deshawn). Summary of the conversation: Discussed clinical course, discussed goals of care, discussed code status. Outcome of the conversation: Decision to continue current management. Decision to change code status from DNR CCA No ICU transfer to DNR CCA no intubation, ok for icu transfer Advance Directives were explained including HCPOA, Living Will and/or DNR. This is the first significant conversation I have had with this patient about advanced care planning. I spent 20 minutes providing separately identifiable ACP services with the patient and/or surrogate decision maker in a voluntary conversation discussing the patient's goals, values, and preferences as detailed in the note above. Chris Verdugo MD Palliative Care Assessments: Goals of care: Continue Current Management Advanced Directives: Health Care Power of Rotary Helper, DNR Functional Assessment: PPS 40% mainly in bed; can't do any work/extensive disease; mainly assistance; normal or reduced intake; full or drowsy or confusion Prognosis: uncertain at this time Spiritual Assessment: No spiritual distress identified Bereavement and Grief: To Be Determined PDMP/OARRS Reviewed: Yes-reviewed Social history: Marital status: Children: unknown Living status: [facility] Work history: unknown status: No Lutheran: None ROS: See palliative care ROS/ESAS below; Detail ROS unable to be obtained due to patient's mental status [place] Symptom Assessment Score [place] Score Pain Score (if non-verbal, add .FLACC below) 6 Tiredness Score 0 Nausea Score 0 Depression Score 0 Anxiety Score 5 Drowsiness Score 0 Anorexia Score (0= eating well, 10= not eating) 0 Wellbeing Score (10= worst sense of well-being) 0 Constipation 0 Dyspnea Score (0= no shortness of breath) 0 FLACC Scale (For Pain Assessment of the Non-Verbal Patient) Face: 1- occasional grimace or frown Legs: 1- uneasy, restless, tense Activity: 1- squirming, tense Cry: 1- occasional moan or whimper Consolability:2- difficult to console or comfort Total Score: 6 Family Meeting: Participants: POA Family meeting was held to discuss:Diagnosis and Prognosis, Goals of Care, Treatment Options, Symptom Management, Advanced Care Planning, and Prior Expressed Wishes Medical History[1] Surgical History[2] Family History[3] Unable to obtain family history due to N/A- family history available Allergies[4] Objective: BP 158/84 (BP Location: Right arm, Patient Position: Lying) Pulse 115 Temp 37.1 C (98.7 F) (Temporal) Resp 20 Ht 5' 4.57 (1.64 m) Wt 116 lb 4.8 oz (52.8 kg) SpO2 94% BMI 19.61 kg/m Physical Exam Vitals reviewed. Constitutional: Appearance: She is ill-appearing. She is not toxic-appearing. HENT: Head: Normocephalic. Mouth/Throat: Mouth: Mucous membranes are moist. Eyes: Extraocular Movements: Extraocular movements intact. Pupils: Pupils are equal, round, and reactive to light. Cardiovascular: Rate and Rhythm: Regular rhythm. Tachycardia present. Pulmonary: Effort: Pulmonary effort is normal. Breath sounds: Normal breath sounds. Abdominal: General: Abdomen is flat. There is no distension. Tenderness: There is no abdominal tenderness. Musculoskeletal: General: Swelling (+1 bilateral feet) present. Skin: Coloration: Skin is not pale. Neurological: Mental Status: She is alert. Comments: Moaning, does not answer questions or follow commands Psychiatric: Comments: Restless, pulling at gown Medication information: 24-hour PRN meds received: MAR reviewed Results/Verification of Data Review Objective data reviewed (must include dates reviewed for labs, imaging reports and other specialty notes): Data in Support of Terminal Illness: Is patient hospice appropriate? Eligible, but not consistent with [facility] at this time Transition Note Initiated: yes Chris Verdugo MD [1] Past Medical History: Diagnosis Date Chronic kidney disease (CKD) Hemodialysis patient (CMS/HCC) (HCC) Wednesday, , Wednesday History of blood transfusion 02/27/2022 Hypertension Seizure (HCC) Developed seizure-like activity on 02/24 during hospital admission [2] Past Surgical History: Procedure Laterality Date AV FISTULA PLACEMENT Left 08/07/2022 COLONOSCOPY N/A 01/25/2024 Performed by Chrissy Gilman MD at [facility] ENDOSCOPY IR CVC TUNNELED DIALYSIS CATHETER PLACEMENT 02/27/2022 IR CVC TUNNELED CATHETER PLACEMENT 02/27/2022 Candis Andrade MD [facility] SPECIAL PROCEDURES IR EMBOLIZATION 01/24/2024 IR EMBOLIZATION 01/24/2024 Jovan Glynn MD [facility] SPECIAL PROCEDURES VASCULAR SURGERY Left 11/02/2024 EXCISION OF LEFT UPPER EXTREMITY INFECTED GRAFT (JIM) VASCULAR SURGERY Left 11/05/2024 REVISION OR REPAIR, AV FISTULA (JIM) [3] Family History Problem Relation Name Age of Onset Dementia Mother Stroke Father Prostate cancer Brother 69 Breast cancer Cousin 32 Stomach cancer Mother's Sister 70 [4] No Known Allergies Associated Order(s): IP CONSULT TO INFECTIOUS DISEASES Images from the original note were not included. [facility] - Infectious Diseases Attending Consult Note Reason for Consult: Suspected diskitis, recent fistula infection HPI: This is a 74 year old female with a PMHx of ESRD on HD, PSH AV graft placement (2022), excision of infected LUE AV graft 11/02/2024, and evacuation of LUE hematoma on 11/05/2024, chronic anemia requiring blood transfusions, HTN, seizure disorder, A-fib, history of C diff who initially presented to the ED on 12/09/2023 after a fall. She usually uses wheelchair, but stood up to try to help her family member and fell backwards, hitting her head on the pavement. There was no LOC. She had mild leukocytosis of 11.2, Hgb 6.9, and K 2.6. She received [address] head and cervical spine showed endplate erosive changes at the C3/C4 intervertebral disc. Ortho consulted, MRI cervical spine ordered to evaluate for epidural abscess and need for operative intervention, as well as MRI brain. Of note, from 08/14/2024 - 08/24/2024, patient had infected hematoma in right thigh and anterior hip that was drained, then returned to the hospital for expanding hematoma requiring 2 units pRBC. From 09/13/2024 - 10/12/2024, she was treated for new onset A-fib in the setting of COVID, and was positive for Enterobacter cloaecae bacteremia, Klebsiella pneumoniae, Klebsiella oxytoca, and Enterococcus casseliflavus. She was treated in the ICU transiently due to high fevers, tachycardia, and tachypnea, possibly related to the meropenem she was on and transitioned to Cefdinir and Linezolid until 10/19. She was also treated for C diff colitis. At that time, she was discharged to nursing facility on tunneled HD catheter. On 10/22/2024, there was concern for fistula infection and she had excision of the left upper extremity infected graft on 11/02/2024. Left arm culture grew Enterobacter cloacae. ID recommended Bactrim renally dosed through 11/13/2024. She was having bleeding from AV fistula requiring blood transfusions and on 11/05/2024 she had ex lap of the left upper extremity with evacuation of hematoma. Currently, ID consulted for suspected diskitis and recent fistula infection. She received 3 day course of cefepime and on 12/12/2024 was transitioned to Vancomycin. Overnight, patient had unwitnessed fall. She was AxO x0 and was rolling around on the floor moaning, mostly lying on left side. Vital signs were stable, glucose repleted. Sitter was placed at bedside and patient was lifted back into bed. Patient seen and examined at bedside. She was sleeping and not responding to questions. She consistently was moaning and saying ow. When asked what was hurting her specifically, she did not give response, although when touching her neck and legs are specifically what triggered her to say ow. It is unclear, however, if both of these areas hurt. When edema was checked in the leg first, she did not say ow, but when palpating her neck, she was moaning and saying ow and then continued to say it throughout the encounter. Discussed with nurse and bedside sitter - she moans a lot. Nurse had her on prior admission and at that time, she was AxO x4. Ran into family after examining patient - when she fell and presented to the hospital, she was alert and oriented and she missed 5 days of dialysis. This morning, her leukocytosis has increased to 16.5, Hgb 8.0, CRP 133, ESR pending. Blood cultures show no growth at 24 hours. Past Medical History: Medical History[1] Past Surgical History: Surgical History[2] Current Medications: Current Medications[3] Allergies: Allergies[4] Social History: Social History Socioeconomic History Marital status: Spouse name: Not on file Number of children: Not on file Years of education: Not on file Highest education level: Not on file Occupational History Not on file Tobacco Use Smoking status: Never Smokeless tobacco: Never Vaping Use Vaping status: Never Used Substance and Sexual Activity Alcohol use: Yes Alcohol/week: 2.0 standard drinks of alcohol Types: 2 Glasses of wine per week Comment: weekly Drug use: Never Sexual activity: Not on file Other Topics Concern Not on file Social History Narrative Not on file Social Drivers of Health Financial Resource Strain: Low Risk (12/09/2024) Overall Financial Resource Strain (CARDIA) Difficulty of Paying Living Expenses: Not hard at all Food Insecurity: No Food Insecurity (12/09/2024) Hunger Vital Sign Worried About Running Out of Food in the Last Year: Never true Ran Out of Food in the Last Year: Never true Transportation Needs: No Transportation Needs (12/09/2024) PRAPARE - Transportation Lack of Transportation (Medical): No Lack of Transportation (Non-Medical): No Physical Activity: Insufficiently Active (12/09/2024) Exercise Vital Sign Days of Exercise per Week: 1 day Minutes of Exercise per Session: 10 min Stress: Stress Concern Present (12/09/2024) [place] [facility] [employer] [facility] - Occupational Stress Questionnaire Feeling of Stress : Very much Social Connections: Moderately Integrated (12/09/2024) Social Connection and Isolation Panel [NHANES] Frequency of Communication with Friends and Family: More than three times a week Frequency of Social Gatherings with Friends and Family: Three times a week Attends Episcopal Services: 1 to 4 times per year Active Member of Clubs or Organizations: Yes Attends Club or Organization Meetings: Never Marital Status: Intimate Partner Violence: Not At Risk (12/09/2024) Humiliation, Afraid, Rape, and Kick questionnaire Fear of Current or Ex-Partner: No Emotionally Abused: No Physically Abused: No Sexually Abused: No Housing Stability: Low Risk (12/09/2024) Housing Stability Vital Sign Unable to Pay for Housing in the Last Year: No Number of Times Moved in the Last Year: 0 Homeless in the Last Year: No Family History: Family History[5] Review of Systems: Review of Systems Reason unable to perform ROS: Patient did not respond to any questions. Vitals: Patient Vitals for the past 24 hrs: BP Temp Temp src Pulse Resp SpO2 12/12/24 2324 158/84 37.1 C (98.7 F) Temporal 115 20 94 % 12/12/24 2231 (!) 149/112 36.7 C (98 F) Temporal (!) 129 16 94 % 12/12/241999 150/81 36.4 C (97.6 F) Temporal 111 16 98 % 12/12/24 1809 133/70 36.2 C (97.2 F) -- 99 18 96 % 12/12/24 1800 116/78 -- -- 96 -- -- 12/12/24 1745 122/82 -- -- 89 -- -- 12/12/24 1730 120/73 -- -- 98 -- -- 12/12/24 1715 106/70 -- -- 88 -- -- 12/12/24 1700 92/65 -- -- 98 -- -- 12/12/24 1645 159/89 -- -- 97 -- -- 12/12/24 1634 126/77 -- -- 87 -- -- 12/12/24 1615 120/76 -- -- 90 -- -- 12/12/24 1600 121/87 -- -- 89 -- -- 12/12/24 1545 112/74 -- -- 90 -- -- 12/12/24 1530 108/79 -- -- 114 -- -- 12/12/24 1524 112/71 -- -- 98 -- -- 12/12/24 1515 111/68 -- -- 90 -- -- 12/12/24 1500 131/81 -- -- 87 -- -- 12/12/24 1445 144/81 -- -- 88 -- -- 12/12/24 1419 148/86 36.3 C (97.4 F) -- 90 17 96 % Physical Exam: Physical Exam Constitutional: Comments: Sleeping, moaning, unable to assess specifically where pain symptoms are located HENT: Head: Normocephalic and atraumatic. Mouth/Throat: Mouth: Mucous membranes are dry. Neck: Comments: Difficult to assess for neck rigidity and Brudzinski sign as patient was fidgeting and moving during exam. Patient said ow when palpating cervical spine Cardiovascular: Rate and Rhythm: Regular rhythm. Tachycardia present. Pulmonary: Effort: No respiratory distress. Breath sounds: Normal breath sounds. Abdominal: Palpations: Abdomen is soft. Musculoskeletal: Right lower leg: Edema present. Left lower leg: Edema present. Comments: Patient stated ow when attempting to perform Kernig sign, although unable to assess where the pain was located Skin: General: Skin is warm and dry. Neurological: Mental Status: She is disoriented. Psychiatric: Comments: Unable to assess Labs: Recent Labs 12/11/2422412/12/2410212/13/2444 NA 138 137 134* K 3.7 4.1 4.2 CL 100 100 100 CO2 27 26 25 BUN 32* 38* 22 CREATININE 4.96* 5.60* 3.82* GLUCOSE 74* 77* 47* CALCIUM 8.0* 7.8* 7.8* PROT 6.5 6.1* -- BILITOT 0.4 0.4 -- ALKPHOS 149 131 -- AST 41* 36* -- ALT 13 10 -- Recent Labs 12/11/2422412/11/24202912/12/2410212/13/2444 WBC 12.1* -- 11.5* 16.5* HGB 7.7* 9.3 8.0* 8.0* HCT 23.6* -- 24.8* 25.3* PLT 300 -- 332 312 LYMPHOPCT 10.5* -- 8.5* -- MONOPCT 4.4* -- 4.9* -- BASOPCT 1.1 -- 1.2 -- NEUTROABS 9.8* -- 9.5* -- Micro: 12/12/2024 - 2/2 blood cultures NGTD LDA: HD tunneled catheter left subclavian Imagin12/06/2024 US vascular 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 No evidence of deep vein thrombosis in the right upper extremity. No evidence of deep vein thrombosis in the left upper extremity. No evidence of superficial vein thrombosis in the left upper extremity. Vessel diameters as noted in the table below. 12/08/2024 CT head 12/08/2024 CT cervical spine IMPRESSION: Endplate erosive changes at the C3/C4 intervertebral disc. MRI may be helpful to evaluate for discitis. 12/09/2024 XR left hip IMPRESSION: Arthroplasties in adequate alignment. No acute abnormality. Antibiotics: 12/09/2024 - 12/12/2024 - cefepime 12/12/2024 - Vancomycin Summary: This is a 74 year old female presenting after a mechanical fall where she hit her head on the pavement. No LOC. She had history of Enterobacter cloacae bacteremia, Klebsiella pneumoniae, Klebsiella oxytoca, and Enterococcus casseliflavus. CT imaging suggesting endplate erosive changes at C3/C4 intervertebral disc. MRI ordered to assess for discitis. Patient is AxO x0 and it is difficult to assess her symptoms. Given 3 day course of cefepime, currently on vancomycin. Blood cultures showing NGTD. Unclear if mental status change is due to cefepime use vs seeding of prior upper extremity graft infection vs uremia from missing dialysis. Assessment: Concern for discitis, possibly seeded from prior upper extremity graft infection ESRD on HD MWF - possible uremia causing mental status change due to missed dialysis sessions (last dialysis session 12/11) Hx infected hematoma - right thigh and anterior hip Hx Enterobacter cloacae bacteremia, Klebsiella pneumoniae, Klebsiella oxytoca, and Enterococcus casseliflavus Hx C diff colitis Hx left upper extremity growing Enterobacter cloacae Leukocytosis Hx Afib Hx COVID infection Plan: Continue Vancomycin. Discontinue cefepime due to possibly neurotoxicity. Start meropenem (Attending to place order, as this medication is restricted to ID). MRI with sedation scheduled for Wednesday - discussed with primary via secure chat that ID recommends MRI sooner than Wednesday and need for escalation Follow blood cultures Follow MRI results - if results are abnormal, would recommend obtaining tissue exam ID will continue to follow. Yvonne Worrell, PGY-1 [1] Past Medical History: Diagnosis Date Chronic kidney disease (CKD) Hemodialysis patient ([facility]/HCC) (HCC) Wednesday, , Wednesday History of blood transfusion 02/27/2022 Hypertension Seizure ([facility]) Developed seizure-like activity on 02/24 during hospital admission [2] Past Surgical History: Procedure Laterality Date AV FISTULA PLACEMENT Left 08/07/2022 COLONOSCOPY N/A 01/25/2024 Performed by Chrissy Gilman MD at [facility] ENDOSCOPY IR CVC TUNNELED DIALYSIS CATHETER PLACEMENT 02/27/2022 IR CVC TUNNELED CATHETER PLACEMENT 02/27/2022 Candis Andrade MD [facility] SPECIAL PROCEDURES IR EMBOLIZATION 01/24/2024 IR EMBOLIZATION 01/24/2024 Jovan Glynn MD [facility] SPECIAL PROCEDURES VASCULAR SURGERY Left 11/02/2024 EXCISION OF LEFT UPPER EXTREMITY INFECTED GRAFT (JIM) VASCULAR SURGERY Left 11/05/2024 REVISION OR REPAIR, AV FISTULA (JIM) [3] Current Facility-Administered Medications Medication Dose Route Frequency Provider Last Rate Last Admin acetaminophen (Tylenol) tablet 650 mg 650 mg Oral q4h PRN Radha Kuzmin, DO Or Acetaminophen (Tylenol) 650 MG/20.3ML solution 650 mg 650 mg Oral q4h PRN Radha Kuzmin, DO Or acetaminophen (Tylenol) suppository 650 mg 650 mg Rectal q4h PRN Radha Kuzmin, DO acetaminophen (Tylenol) tablet 1,000 mg 1,000 mg Oral q8h Radha Kuzmin, DO 1,000 mg at 12/13/24 0537 amLODIPine (Norvasc) tablet 10 mg 10 mg Oral Daily Radha Kevin, DO 10 mg at 12/12/24 0857 atorvastatin (Lipitor) tablet 40 mg 40 mg Oral Nightly John Shepherd, DO 40 mg at 12/12/24 2116 B complex-vitamin C-folic acid (Nephrocaps) capsule 1 capsule 1 capsule Oral Daily John Shepherd DO 1 capsule at 12/11/24 0813 cefepime (Maxipime) 1,000 mg in sodium chloride 0.9 % 50 mL IVPB 1,000 mg IntraVENous q12h Jacob Laguna DO Stopped at 12/12/24 2203 cholecalciferol (Vitamin D-3) tablet 5,000 Units 5,000 Units Oral Daily John Shepherd DO 5,000 Units at 12/11/24 0813 dextrose 5 % infusion 100 mL/hr IntraVENous PRN Ramonita Garnett NP 100 mL/hr at 12/13/24 0157 100 mL/hr at 12/13/24 0157 dextrose 50 % solution 12.5 g 12.5 g IntraVENous PRN Ramonita Garnett NP 12.5 g at 12/12/24 2230 gadopiclenol (Vueway) injection 5 mL 5 mL IntraVENous Once PRN Radha Kuzmin, DO glucagon (human recombinant) injection 1 mg 1 mg IntraMUSCular PRN Ramonita Garnett NP glucose oral gel 15 g 15 g Oral PRN Ramonita Garnett NP heparin injection 1,200-2,000 Units 1,200-2,000 Units IntraCATHeter PRN Jose G P Zidehsarai, DO 2,100 Units at 12/12/24 1758 heparin injection 1,200-2,000 Units 1,200-2,000 Units IntraCATHeter PRN Jose G P Zidehsarai, DO 2,000 Units at 12/12/24 1758 hydrALAZINE (Apresoline) injection 10 mg 10 mg IntraVENous q4h PRN Radha Kevin, DO 10 mg at 12/09/24 1521 labetalol (Normodyne,Trandate) injection 10 mg 10 mg IntraVENous q6h PRN Radha Kevin, DO 10 mg at 12/11/241999 levETIRAcetam (Keppra) tablet 500 mg 500 mg Oral Daily John Shepherd, DO 500 mg at 12/12/24 0857 Lidocaine 4 % patch 1 patch 1 patch TransDERmal Daily Radha Paredesmin, DO melatonin tablet 5 mg 5 mg Oral Nightly John Shepherd, DO 5 mg at 12/12/246 naloxone (Narcan) injection 0.4 mg 0.4 mg IntraVENous q5 min PRN Radha Kevin, DO ondansetron ODT (Zofran-ODT) disintegrating tablet 4 mg 4 mg Oral q8h PRN John Shepherd, DO Or ondansetron (Zofran) injection 4 mg 4 mg IntraVENous q6h PRN John Shepherd, DO oxyCODONE (Roxicodone) immediate release tablet 2.5 mg 2.5 mg Oral q4h PRN Radha Paredesmin, DO oxyCODONE (Roxicodone) immediate release tablet 5 mg 5 mg Oral q4h PRN Radha Kevin, DO 5 mg at 12/11/24 2250 polyethylene glycol (PEG) 3350 (Miralax) packet 17 g 17 g Oral Daily PRN John Shepherd, DO 17 g at 12/10/24 1204 pregabalin (Lyrica) capsule 25 mg 25 mg Oral BID PRN Radha Kuzmin, DO 25 mg at 12/11/24 1052 sertraline (Zoloft) tablet 25 mg 25 mg Oral Daily Radha Kuzmin, DO 25 mg at 12/12/24 0856 sevelamer carbonate (Renvela) tablet 800 mg 800 mg Oral TID WC Johnronda Benitez Pentz, DO 800 mg at 12/11/24 1805 sodium chloride 0.9 % infusion 250 mL/hr IntraVENous PRN John Victor Manuel Pentz, DO sodium chloride 0.9 % infusion 5-250 mL/hr IntraVENous PRN John Victor Manuel Pentz, DO sodium chloride 0.9% (NS) flush 5-40 mL 5-40 mL IntraVENous q12h John Reynagaew Pentz, DO 10 mL at 12/12/24 0443 sodium chloride 0.9% (NS) flush 5-40 mL 5-40 mL IntraVENous PRN John Victor Manuel Pentz, DO thiamine (Vitamin B1) tablet 250 mg 250 mg Oral Daily Johnronda Benitez Pentz, DO 250 mg at 12/11/24 0813 vancomycin (Vancocin) 750 mg in sodium chloride 0.9 % 250 mL IVPB 750 mg IntraVENous Once Radha Kuzmin, DO vancomycin (Vancocin) intermittent dosing (placeholder) Other RX Placeholder Radha Kuzmin, DO [4] No Known Allergies [5] Family History Problem Relation Name Age of Onset Dementia Mother Stroke Father Prostate cancer Brother 69 Breast cancer Cousin 32 Stomach cancer Mother's Sister 70 Cosigned by Shamar More MD at 12/13/2024 6:51 PM EDT Associated attestation - Shamar More MD - 12/13/2024 6:51 PM EDT [facility] Infectious Disease Attending Note Patient seen and evaluated with resident/student. I performed/re-performed a history, physical examination, and saavedra elements of management of the patient and discussed his/her management with the resident/student. I reviewed the resident/student note and agree with the documented findings and plan of care with changes as noted with italics. Patient well known to me from previous [facility] admissions in the past few months- mostly for septic shock form E cloacae and its complications. Eventually we believe her source was infected AV graft which was excised in October and she completed 2 weeks of antibiotic to 11/13 already. Appears she was back to her baseline up until the time she fell, no LOC, but since admitted here on 12/08, has become more encephalopathic again, and concern for sepsis once more. Trauma films ( CT head and C spine) did note erosive changes to C3 and C4 concerning for diskitis. I do recall she had c/o neck pain in the past or maybe even L shoulder pain, and there is possibility that her refractory E cloacae sepsis from a few months ago could have secondarily seeded her C spine. Agree with current antibiotics, and obtaining MRI. If this comes back abnormal, consider tissue diagnosis. Given her Septic presentation however, opting to proceed with empiric antibiotics while above workup is ongoing. Based on diagnoses and management, combination of acute and chronic problems, exacerbations and/or acuity, this visit should be considered to be of high complexity. Associated Order(s): INPATIENT CONSULT TO WOUND CARE PROVIDERS Images from the original note were not included. [facility] CONSULT Note Apoorva Gonzalez AGE: 74 y.o. GENDER: female : 1950 Subjective: HISTORY of PRESENT ILLNESS HPI Apoorva Gonzalez is a 74 y.o. female who presents for a wound consult. HPI: 74 y.o. who presents to the emergency department for mechanical fall. Patient usually uses a wheelchair but she stood up to try to help a family member into her car. She then fell backwards hitting her head on the pavement. Fall was witnessed by family and there was no loss of consciousness. Patient is complaining of pain to the back of her head but says there has not been any bleeding. Admitted for fall and closed head injury. Wound Care consulted for left buttock. Patient resting in bed. Topical treatment applied at time of visit. PAST MEDICAL HISTORY Medical History[1] PAST SURGICAL HISTORY Surgical History[2] FAMILY HISTORY Family History[3] SOCIAL HISTORY Social History[4] ALLERGIES Allergies[5] MEDICATIONS Medications Ordered Prior to Encounter[6] REVIEW OF SYSTEMS Pertinent items are noted in HPI. Objective: BP 151/76 Pulse 91 Temp 36.9 C (98.5 F) (Temporal) Resp 18 Ht 5' 4.57 (1.64 m) Wt 116 lb 4.8 oz (52.8 kg) SpO2 97% BMI 19.61 kg/m PHYSICAL EXAM General appearance: in no apparent distress, well developed and well nourished, and alert Skin: warm and dry Pulmonary: Normal effort, no respiratory distress, no cyanosis Abdomen: soft, nontender, and nondistended Extremities: warm and dry Buttock/sacrum Left buttock - 1.5 x 0.8 x 0.1cm - wound bed with large pink tissue and thin small slough, aminah wound tissue intact with scarring noted, msall serosang drainage noted LABS CBC: Lab Results Component Value Date WBC 16.5 (H) 12/13/2024 HGB 8.0 (L) 12/13/2024 HGB 9.3 12/11/2024 HCT 25.3 (L) 12/13/2024 MCV 92.0 12/13/2024 PLT 312 12/13/2024 BMP: Lab Results Component Value Date NA 134 (L) 12/13/2024 K 4.2 12/13/2024 CL 100 12/13/2024 CO2 25 12/13/2024 BUN 22 12/13/2024 CREATININE 3.82 (H) 12/13/2024 PT/INR: No results found for: PROTIME, INR Prealbumin: No results found for: PREALBUMIN Albumin:No components found for: LABALBU Sed Rate:No results found for: SEDRATE Micro: No components found for: BC Assessment/Plan: Nursing staff to perform dressing change: Left buttock stage 3 pressure injury (POA): -cleanse with soap and water, apply ET mix TID and PRN, leave [employer] -P500 bed -waffle chair cushion -Q2hr/PRN turns -glide sheets for T&R -continence checks Q1-2 Hrs/PRN Nutritional support Wound Care to follow Recommend to follow up at [facility] Out[facility] wound care center after hospital discharge. Any questions or concerns please secure chat [facility] wound/ostomy. Thank you for the consult! I personally obtained the saavedra and critical portions of the history and physical exam. I reviewed the labs, imaging studies, and electronic medical record. I reviewed the chart documentation and discussed the patient with treatment team members. I have edited the note to reflect my clinical findings and my assessment and plan. Please note, the time of this note does not reflect the time I saw this patient today, but the time of this documentaton. Portions of this note including HPI, ROS, impression/plan, and examination may have been copied forward from admission to today as to provide important historical information essential in contributing to medical decision making. Documentation has been reviewed and edited as necessary to support clinical decision making for today's visit and to reflect my own independent evaluation of this patient. Decision making for today's visit and to reflect my own independent evaluation of this patient. [1] Past Medical History: Diagnosis Date Chronic kidney disease (CKD) Hemodialysis patient ([facility]/HCC) (HCC) Wednesday, , Wednesday History of blood transfusion 02/27/2022 Hypertension Seizure ([facility]) Developed seizure-like activity on 02/24 during hospital admission [2] Past Surgical History: Procedure Laterality Date AV FISTULA PLACEMENT Left 08/07/2022 COLONOSCOPY N/A 01/25/2024 Performed by Chrissy Gilman MD at [facility] ENDOSCOPY IR CVC TUNNELED DIALYSIS CATHETER PLACEMENT 02/27/2022 IR CVC TUNNELED CATHETER PLACEMENT 02/27/2022 Candis Andrade MD [facility] SPECIAL PROCEDURES IR EMBOLIZATION 01/24/2024 IR EMBOLIZATION 01/24/2024 Jovan Glynn MD [facility] SPECIAL PROCEDURES VASCULAR SURGERY Left 11/02/2024 EXCISION OF LEFT UPPER EXTREMITY INFECTED GRAFT (JIM) VASCULAR SURGERY Left 11/05/2024 REVISION OR REPAIR, AV FISTULA (JIM) [3] Family History Problem Relation Name Age of Onset Dementia Mother Stroke Father Prostate cancer Brother 69 Breast cancer Cousin 32 Stomach cancer Mother's Sister 70 [4] Social History Tobacco Use Smoking status: Never Smokeless tobacco: Never Vaping Use Vaping status: Never Used Substance Use Topics Alcohol use: Yes Alcohol/week: 2.0 standard drinks of alcohol Types: 2 Glasses of wine per week Comment: weekly Drug use: Never [5] No Known Allergies [6] No current facility-administered medications on file prior to encounter. Current Outpatient Medications on File Prior to Encounter Medication Sig Dispense Refill acetaminophen (Tylenol) 325 MG tablet Take 650 mg by mouth every 6 hours as needed. amLODIPine (Norvasc) 5 MG tablet Take 1 tablet (5 mg) by mouth daily. B complex-vitamin C-folic acid (Nephro-Coleen) 0.8 MG tablet Take 0.8 mg by mouth daily. cholecalciferol (Vitamin D-3) 125 MCG (5000 UT) capsule Take 5,000 Units by mouth daily. melatonin 5 MG tablet Take 1 tablet (5 mg) by mouth Nightly. sevelamer (Renagel) 800 MG tablet Take 800 mg by mouth 3 times daily (with meals). Swallow tablet whole; do not crush, break, or chew. Thiamine HCl (vitamin B-1) 250 MG tablet Take 250 mg by mouth daily. atorvastatin (Lipitor) 40 MG tablet Take 1 tablet (40 mg) by mouth Nightly. 30 tablet 11 levETIRAcetam (Keppra) 500 MG tablet Take 1 tablet (500 mg) by mouth daily. 30 tablet 1 magnesium hydroxide (Milk of Magnesia) 2400 MG/10ML suspension suspension Take 30 mL by mouth Daily as needed for constipation. (Patient not taking: Reported on 12/09/2024) [] sulfamethoxazole-trimethoprim (Bactrim DS) 800-160 MG tablet Take 1 tablet by mouth daily for 4 days. Cosigned by Evan Culp DO at 12/18/2024 4:21 PM EDT Associated Order(s): IP CONSULT TO ORTHOPAEDIC SURGERY Images from the original note were not included. Ortho Spine Consult Patient: Apoorva Gonzalez Date of : 1950 Acct: [id number] PCP: Roxie Spain Date of Admission: 12/08/2024 Date of Service: Pt seen/examined on 12/12/2024 Chief Complaint: Concern for discitis History Of Present Illness: 74 y.o. female who initially presented to the ED after a fall from her wheelchair at a dinner on 12/08 resulting in a head strike. She was admitted to the hospital for hypertension and electrolyte abnormalities as well as C3/4 endplate erosive changes seen on CT cervical spine. Following admission to the hospital, an MRI of the cervical spine was ordered but the patient had refused the MRI on multiple occasions. Blood cultures have been negative to date. On orthopaedic evaluation, the patient was awake but disoriented and was unable to answer any questions or localize pain. On chart review, patient was alert and conversational until 12/11 when she was unable to participate in conversation. She is known to the orthopaedic service for a right thigh hematoma from September 2024. She was initially treated at [facility] but was transferred to [facility] for ICU treatment of septic shock, hypoxic respiratory failure, and encephalopathy. She had an infected right thigh hematoma that was irrigated and debrided at [facility] at that time with recurrence of her hematoma. Her hematoma was monitored for improvement during her admission in September. At baseline, the patient is conversational and is able to mobilize with a wheelchair. Prior remote orthopaedic surgery history of bilateral total hip arthroplasties done at an outside hospital. Per chart review, she uses alcohol occasionally and does not use tobacco or illicit drugs. Hx from chart review. Patient ambulation status: per chart review has been using a wheelchair. Antiplatelets/Anticoagulation includes: none. Past Medical History: Medical History[1] Past Surgical History: Recent Surgeries in Date Procedure Surgeon Laterality Status 11/05/2024 REVISION OR REPAIR, AV FISTULA Maria A Khan MD; Raffy Fernandez MD N/A Posted 11/02/2024 EXCISION OF LEFT UPPER EXTREMITY INFECTED GRAFT Raffy Fernandez MD; Francisco Javier Somers III, MD Left Posted 01/25/2024 COLONOSCOPY Chrissy Gilman MD N/A Posted <div [id number]></ div> Home Medications: Prior to Admission medications Medication Sig Start Date End Date Taking? Authorizing Provider acetaminophen (Tylenol) 325 MG tablet Take 650 mg by mouth every 6 hours as needed. 08/24/24 Yes Historical Provider, amLODIPine (Norvasc) 5 MG tablet Take 1 tablet (5 mg) by mouth daily. 11/11/24 11/11/25 Yes Gerard Carrillo DO B complex-vitamin C-folic acid (Nephro-Coleen) 0.8 MG tablet Take 0.8 mg by mouth daily. Yes Historical Provider, cholecalciferol (Vitamin D-3) 125 MCG (5000 UT) capsule Take 5,000 Units by mouth daily. Yes Historical Provider, melatonin 5 MG tablet Take 1 tablet (5 mg) by mouth Nightly. 11/11/24 Yes Gerard Carrillo DO sevelamer (Renagel) 800 MG tablet Take 800 mg by mouth 3 times daily (with meals). Swallow tablet whole; do not crush, break, or chew. Yes Historical Provider, Thiamine HCl (vitamin B-1) 250 MG tablet Take 250 mg by mouth daily. Yes Historical Provider, atorvastatin (Lipitor) 40 MG tablet Take 1 tablet (40 mg) by mouth Nightly. 03/02/22 12/06/24 Evan Joshua APRN - TAMIR levETIRAcetam (Keppra) 500 MG tablet Take 1 tablet (500 mg) by mouth daily. 03/02/22 12/06/24 Evan Joshua APRN - T[facility] magnesium hydroxide (Milk of Magnesia) 2400 MG/10ML suspension suspension Take 30 mL by mouth Daily as needed for constipation. Patient not taking: Reported on 12/09/2024 Historical Provider, sulfamethoxazole-trimethoprim (Bactrim DS) 800-160 MG tablet Take 1 tablet by mouth daily for 4 days. 11/11/24 12/06/24 Gerard Carrillo DO Current Hospital Medications: Current Medications[2] Allergies: Patient has no known allergies. Social History: Social History Socioeconomic History Marital status: Spouse name: Not on file Number of children: Not on file Years of education: Not on file Highest education level: Not on file Occupational History Not on file Tobacco Use Smoking status: Never Smokeless tobacco: Never Vaping Use Vaping status: Never Used Substance and Sexual Activity Alcohol use: Yes Alcohol/week: 2.0 standard drinks of alcohol Types: 2 Glasses of wine per week Comment: weekly Drug use: Never Sexual activity: Not on file Other Topics Concern Not on file Social History Narrative Not on file Social Drivers of Health Financial Resource Strain: Low Risk (12/09/2024) Overall Financial Resource Strain (CARDIA) Difficulty of Paying Living Expenses: Not hard at all Food Insecurity: No Food Insecurity (12/09/2024) Hunger Vital Sign Worried About Running Out of Food in the Last Year: Never true Ran Out of Food in the Last Year: Never true Transportation Needs: No Transportation Needs (12/09/2024) PRAPARE - Transportation Lack of Transportation (Medical): No Lack of Transportation (Non-Medical): No Physical Activity: Insufficiently Active (12/09/2024) Exercise Vital Sign Days of Exercise per Week: 1 day Minutes of Exercise per Session: 10 min Stress: Stress Concern Present (12/09/2024) [place] [employer] - Occupational Stress Questionnaire Feeling of Stress : Very much Social Connections: Moderately Integrated (12/09/2024) Social Connection and Isolation Panel [NHANES] Frequency of Communication with Friends and Family: More than three times a week Frequency of Social Gatherings with Friends and Family: Three times a week Attends [employer] Services: 1 to 4 times per year Active Member of Clubs or Organizations: Yes Attends Club or Organization Meetings: Never Marital Status: Intimate Partner Violence: Not At Risk (12/09/2024) Humiliation, Afraid, Rape, and Kick questionnaire Fear of Current or Ex-Partner: No Emotionally Abused: No Physically Abused: No Sexually Abused: No Housing Stability: Low Risk (12/09/2024) Housing Stability Vital Sign Unable to Pay for Housing in the Last Year: No Number of Times Moved in the Last Year: 0 Homeless in the Last Year: No Family History: Family History[3] Further Family History is noncontributory to this injury. REVIEW OF SYSTEMS: Unable to obtain due to patient's mentation PHYSICAL EXAM: BP 150/81 (BP Location: Right arm, Patient Position: Sitting) Pulse 111 Temp 36.4 C (97.6 F) (Temporal) Resp 16 Ht 1.64 m (5' 4.57) Wt 52.8 kg (116 lb 4.8 oz) SpO2 98% BMI 19.61 kg/m GENERAL APPEARANCE: Awake, not oriented to person/place/time. Patient moans when asked questions. MOOD AND AFFECT: Unable to determine due to patient's mentation. Patient unable to participate in spine exam secondary to current mental status. Patient moves all extremities spontaneously without apparent purpose. RUE: - No obvious deformity or instability except as noted below - Exam limited by patient mental status - Unable to formally assess sensation - Unable to assess TTP - Compartments soft and compressible - Extremity warm and well perfused - Radial pulse palpable - Brisk capillary refill to all digits - Skin intact except as noted below LUE: - No obvious deformity or instability except as noted below - Exam limited by patient mental status - Unable to formally assess sensation - Unable to assess TTP - Compartments soft and compressible - Extremity warm and well perfused - Radial pulse palpable - Brisk capillary refill to all digits - Skin intact except as noted below RLE: - No obvious deformity or instability except as noted below - Exam limited by patient mental status - Unable to formally assess sensation - Unable to assess TTP - Compartments soft and compressible - Extremity warm and well perfused - DP pulse palpable - Brisk capillary refill to all digits - Skin intact except as noted below - There is stiff pROM of the right hip compared to the contralateral side LLE: - No obvious deformity or instability except as noted below - Exam limited by patient mental status - Unable to formally assess sensation - Unable to assess TTP - Compartments soft and compressible - Extremity warm and well perfused - DP pulse palpable - Brisk capillary refill to all digits - Skin intact except as noted below Deep Tendon Reflexes: Patient unable to relax extremities to accurately obtain reflex exam. Labs: Recent Labs 12/10/2454112/11/2422412/11/24 2030 12/12/24 0103 WBC 10.2 12.1* -- 11.5* HGB 7.3* 7.7* 9.3 8.0* HCT 23.2* 23.6* -- 24.8* PLT 293 300 -- 332 Recent Labs 12/10/2442 12/11/2422412/12/24 0103 NA 135* 138 137 K 3.4* 3.7 4.1 CL 99 100 100 CO2 26 27 26 BUN 25* 32* 38* CREATININE 4.24* 4.96* 5.60* CALCIUM 7.5* 8.0* 7.8* No results for input(s): INR in the last 72 hours. No results for input(s): SEDRATE, CRP in the last 72 hours. No results for input(s): HCG in the last 72 hours. The above labs were reviewed by me. Radiology: The following images were independently reviewed and interpreted XR: Left hip: There are bilateral total hip arthroplasties which appear well positioned. No acute fractures or dislocations. CT: Cervical spine: There are erosive changes to the C3-4 endplates and loss of the intervertebral disc space. There are degenerative changes in the cervical spine. There is loss of intervertebral disc space between C5-6 and loss of normal cervical lordosis. Spinal canal appears patent. Transverse foramina appear patent. Facet joints are congruent with diffuse facet arthropathy. No acute fractures or dislocations. MRI: Cervical spine: pending Radiology report reviewed. ASSESSMENT: 74 y.o. 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 An MRI has been ordered prior to evaluation but the patient reportedly refused to go to MRI for multiple days. Blood cultures have remained negative but patient has been receiving vancomycin. -Will follow MRI results to determine etiology of patient's C3-4 erosion -Weightbearing as tolerated bilateral lower extremities -Activity as tolerated -Neurovascular checks -Skin checks -Pain and medical management per primary -Orthopaedic surgery will follow peripherally for MRI completion and will update plan of care accordingly. Please page skilled nursing professional orthopaedic resident for questions or concerns. Balta Chacon M.D. PGY-2 Orthopaedic Surgery Francisco Javier Morales MD Orthopaedic Surgery, PGY-4 [1] Past Medical History: Diagnosis Date Chronic kidney disease (CKD) Hemodialysis patient ([facility]) ([facility]) Wednesday, , Wednesday History of blood transfusion 02/27/2022 Hypertension Seizure ([facility]) Developed seizure-like activity on 02/24 during hospital admission [2] Current Facility-Administered Medications: acetaminophen (Tylenol) tablet 650 mg, 650 mg, Oral, q4h PRN OR Acetaminophen (Tylenol) 650 MG/20.3ML solution 650 mg, 650 mg, Oral, q4h PRN OR acetaminophen (Tylenol) suppository 650 mg, 650 mg, Rectal, q4h PRN, Radha Kevin, DO acetaminophen (Tylenol) tablet 1,000 mg, 1,000 mg, Oral, q8h, Radha Paredesmin, DO, 1,000 mg at 12/12/24 0443 amLODIPine (Norvasc) tablet 10 mg, 10 mg, Oral, Daily, Radha Paredesmin, DO, 10 mg at 12/12/24 0857 atorvastatin (Lipitor) tablet 40 mg, 40 mg, Oral, Nightly, John Shepherd, DO, 40 mg at 12/10/24 2124 B complex-vitamin C-folic acid (Nephrocaps) capsule 1 capsule, 1 capsule, Oral, Daily, John Shepherd, DO, 1 capsule at 12/11/24 0813 cefepime (Maxipime) 1,000 mg in sodium chloride 0.9 % 50 mL IVPB, 1,000 mg, IntraVENous, q12h, Jacob Laguna DO, Stopped at 12/12/24 1406 cholecalciferol (Vitamin D-3) tablet 5,000 Units, 5,000 Units, Oral, Daily, John Shepherd, DO, 5,000 Units at 12/11/24 0813 gadopiclenol (Vueway) injection 5 mL, 5 mL, IntraVENous, Once PRN, Radha Paredesmin, DO heparin injection 1,200-2,000 Units, 1,200-2,000 Units, IntraCATHeter, PRN, Jose G P Zidehsarai, DO, 2,100 Units at 12/12/24 1758 heparin injection 1,200-2,000 Units, 1,200-2,000 Units, IntraCATHeter, PRN, Jose G P Zidehsarai, DO, 2,000 Units at 12/12/24 1758 hydrALAZINE (Apresoline) injection 10 mg, 10 mg, IntraVENous, q4h PRN, Radha Beltranzmin, DO, 10 mg at 12/09/24 1521 labetalol (Normodyne,Trandate) injection 10 mg, 10 mg, IntraVENous, q6h PRN, Radha Kuzmin, DO, 10 mg at 12/11/241999 levETIRAcetam (Keppra) tablet 500 mg, 500 mg, Oral, Daily, John Shepherd, DO, 500 mg at 12/12/24 0857 Lidocaine 4 % patch 1 patch, 1 patch, TransDERmal, Daily, Radhajacquelyn Beltranzmin, DO melatonin tablet 5 mg, 5 mg, Oral, Nightly, John Benitez Pentz, DO, 5 mg at 12/10/24 2124 naloxone (Narcan) injection 0.4 mg, 0.4 mg, IntraVENous, q5 min PRN, Radha Beltranzmin, DO ondansetron ODT (Zofran-ODT) disintegrating tablet 4 mg, 4 mg, Oral, q8h PRN OR ondansetron (Zofran) injection 4 mg, 4 mg, IntraVENous, q6h PRN, John Benitez Pentz, DO oxyCODONE (Roxicodone) immediate release tablet 2.5 mg, 2.5 mg, Oral, q4h PRN, Radha Kuzmin, DO oxyCODONE (Roxicodone) immediate release tablet 5 mg, 5 mg, Oral, q4h PRN, Radha Paredesmin, DO, 5 mg at 12/11/24 2250 polyethylene glycol (PEG) 3350 (Miralax) packet 17 g, 17 g, Oral, Daily PRN, John Reynagaew Pentz, DO, 17 g at 12/10/24 1204 pregabalin (Lyrica) capsule 25 mg, 25 mg, Oral, BID PRN, Radha Kuzmin, DO, 25 mg at 12/11/24 1052 sertraline (Zoloft) tablet 25 mg, 25 mg, Oral, Daily, Radhajacquelyn Beltranzmin, DO, 25 mg at 12/12/24 0856 sevelamer carbonate (Renvela) tablet 800 mg, 800 mg, Oral, TID WC, John Reynagaew Pentz, DO, 800 mg at 12/11/24 1805 sodium chloride 0.9 % infusion, 250 mL/hr, IntraVENous, PRN, John Reynagaew Pentz, DO sodium chloride 0.9 % infusion, 5-250 mL/hr, IntraVENous, PRN, John Victor Manuel Pentz, DO sodium chloride 0.9% (NS) flush 5-40 mL, 5-40 mL, IntraVENous, q12h, John Benitez Pentz, DO, 10 mL at 12/12/24 0443 sodium chloride 0.9% (NS) flush 5-40 mL, 5-40 mL, IntraVENous, PRN, John Shepherd DO thiamine (Vitamin B1) tablet 250 mg, 250 mg, Oral, Daily, John Shepherd DO, 250 mg at 12/11/24 0813 vancomycin (Vancocin) intermittent dosing (placeholder), , Other, RX Placeholder, Radha DO [place] [3] Family History Problem Relation Name Age of Onset Dementia Mother Stroke Father Prostate cancer Brother 69 Breast cancer Cousin 32 Stomach cancer Mother's Sister 70 Cosigned by Victor Manuel Benito MD at 12/13/2024 7:25 AM EDT Associated attestation - Victor Manuel Benito MD - 12/13/2024 7:25 AM EDT Attending orthopedic spine team attestation I saw and independently examined the patient. I agree with the below history and physical examination as well as assessment/plan. I independently reviewed her CT scan which shows erosive changes at the C3-4 level. At this point, I would highly recommend a cervical MRI to ensure there is no evidence of infection as well as no epidural abscess. Because of her mentation, a complete neurologic exam is difficult to obtain. An MRI would be important to ensure there is no epidural abscess or infection which would require operative intervention. Would also recommend obtaining ESR/CRP as well to help trend lab values. We will follow-up for the results of the MRI once it is obtained. Victor Manuel Benito MD 12/13/2024 7:24 AM Images from the original note were not included. Pharmacy Managed Vancomycin Dosing Service Consult Note Consult Date: 12/11/24 Patient Name: Apoorva Gonzalez Allergies: Patient has no known allergies. Age: 74 y.o. Sex: female Estimated body mass index is 19.61 kg/m as calculated from the following: Height as of this encounter: 1.64 m (5' 4.57). Weight as of this encounter: 52.8 kg (116 lb 4.8 oz). DW: 52.8 kg Lab Results Component Value Date CREATININE 4.96 (H) 12/11/2024 CREATININE 4.24 (H) 12/10/2024 BUN 32 (H) 12/11/2024 BUN 25 (H) 12/10/2024 WBC 12.1 (H) 12/11/2024 WBC 10.2 12/10/2024 Renal: [x]HD []CRRT []PD [] CrCl ml/min (Cockcroft-Gault, if ROLANDO, no GARMENT ALTERATION EXAMINER) Consulted By: Dr. Radha Kevin Vancomycin Level: []Trough [x]Random --> date/time future collection 12/12/24 at 2100 Infectious Diagnosis: Bone & Joint Infection (target level = 15-20 mg/L) Antimicrobials: Patient recently received an antibiotic (last 12 hours) Date/Time Action Medication Dose Rate 12/11/24 1057 New Bag cefepime (Maxipime) 1,000 mg in sodium chloride 0.9 % 50 mL IVPB 1,000 mg 100 mL/hr Assessment/Plan: Intermittent vancomycin dosing (Pulse Dosing). Give Vancomycin 1000 mg x 1 based on patient age, weight, renal status and infectious diagnosis (19 mg/kg). Will adjust dose/frequency if needed according tomorrow's level. Follow renal status closely. Orders placed. Thank you for this consult. Please page/call with questions. Date: 12/11/24 Time: 7:22 PM Jess Byrd RPh (available on Secure Chat Associated Order(s): IP CONSULT TO GERIATRICS [facility] Inpatient Consult Service Admission Date: 12/08/2024 Admission Status: OBSERVATION Chief Complaint: Fall Reason for Appointment Geriatrics consulted for Trauma due to fall Assessment/Plan Principal Problem: Fall, initial encounter Active Problems: Fall (on)(from) sidewalk curb, initial encounter Fall, debility, functional decline -Risk factors include: Physical deconditioning, multiple hospitalizations -PT/OT consulted, follow-up on recommendations -Check orthostatic vital signs -Check vitamin D level -Continue fall precautions -Recommend outpatient eye exam Acute pain due to trauma - Management per primary service - Recommend scheduled acetaminophen 1000 mg 3 times daily to start Constipation - Chronic, recurrent problem - Management per primary service - Patient usually goes several days without BMs at home, estimates last BM was 2 to 3 days ago - Agree with MiraLAX as needed, goal is soft BM no less than every 3 days. At Risk for Delirium -Risk factors include: Fall, head injury, pain, hospitalization, medications -Melatonin nightly as needed for insomnia -Delirium Protocol -Avoid sedating/anticholinergic medications -Encourage family visits -Encourage sleep hygiene -Minimize barriers to nutrition -Optimize sensory input and access to assistive devices where indicated -Encourage time up in chair - including at meals - as able -Unless contraindicated, encourage regular ambulation with assistance -D/c Whyte, restraints, IV lines, as able During thisencounter, total encounter time of 55 minutes counseling or coordinating care and provided discussion regarding work-up, test results, treatment options and associatedrisks and benefits for the problems detailed above, prognosis, expected disease course, and rehabilitation care needs. Subjective: HPI 74 y.o. year-old female with a past medical history of end-stage renal disease on hemodialysis, hypertension, and seizures who presented to the emergency department on 12/08 from home for fall. Patient sustained a witnessed fall while trying to help a family member into her car. Patient reportedly fell backwards and hit the back of her head on pavement, no loss of consciousness. Head CT in the emergency department did not show any acute intracranial findings, concerning for discitis. Patient was found to have hemoglobin 6.9 requiring transfusion. Patient admitted for further management. Patient unable to tolerate MRI due to anxiety. - Nephrology was consulted for management of hemodialysis while inpatient. Conversation patient: -patient complaining of pain in the back of her head today, started after her fall 2 days ago. Pain primarily in left back of head, radiates down back of neck, relieved by sitting quietly, not exacerbated by anything. Rated 8/10. - reported normal appetite, no swallowing problems, last BM prior to admission. No urinary symptoms. Sleeping ok this admission, doesn't normally take anything to sleep at home. Patient denied any problems with confusion since hitting her head, does have chronic problems with memory. Usually has to stop and think much of her day. - mobility normally not great, usually in wheelchair when out of home. Denied any other falls prior to admission. Conversation nurse: -patient has been more anxious and complaining of pain, requesting to leave the hospital multiple times today. Appetite seems normal, no swallowing problems. No agitation. Conversation with caregiver: - I attempted to call patient's brother/POA for my call went to [employer]. Will attempt to reach out at another time. Advance Care Planning Healthcare Power ofAttorney: yes Financial Power of Rotary Helper: yes Living Will:yes Code Status: DNR CCA Allergies[1] Current Medications[2] Medical History[3] Surgical History[4] Social History Social History Tobacco Use Smoking status: Never Smokeless tobacco: Never Substance Use Topics Alcohol use: Yes Alcohol/week: 2.0 standard drinks of alcohol Types: 2 Glasses of wine per week Comment: weekly Social History Social History Narrative Not on file Patient Currently Lives: LTC facility Level of FamilySupport: brother, grandsons, RODRIGUEZ, boyfriend Community Resources: LTC facility Elder Abuse: No Education Level: college Family History Family History[5] Family Status Relation Name Status Mother Father Brother (Not Specified) Cousin Mat Aunt No partnership data on file Parents are as above Review of Systems Constitutional: Negative for appetite change. HENT: Negative for trouble swallowing. Respiratory: Negative for cough and shortness of breath. Cardiovascular: Positive for leg swelling. Negative for chest pain. Gastrointestinal: Positive for constipation. Negative for abdominal pain, diarrhea, nausea and vomiting. Genitourinary: Negative for difficulty urinating, dysuria and hematuria. Musculoskeletal: Positive for myalgias and neck pain. Neurological: Negative for dizziness and light-headedness. Psychiatric/Behavioral: Negative for agitation, behavioral problems and confusion. The patient is nervous/anxious. Functional Status (I: Independent, A: Assisted, D: Dependent) ADLs I A D Notes Bathing [x] [] [] Dressing [x] [] [] Toileting [x] [] [] Transfers [x] [] [] Feeding [x] [] [] Ambulation [x] [] [] Assistive devices: wheelchair or walker IADLs I A D { Telephone [x] [] [] Transportation [] [] [x] Driving safety concerns: NA Shopping [] [] [x] Meal prep [] [] [x] Housework [] [] [x] Medications [] [] [x] Finances [] [] [x] Objective: BP (!) 191/91 (BP Location: Right arm, Patient Position: Lying) Pulse 94 Temp 36.7 C (98.1 F) (Temporal) Resp 24 Ht 5' 4.57 (1.64 m) Wt 111 lb (50.3 kg) SpO2 100% BMI 18.72 kg/m No intake or output data in the 24 hours ending 12/10/24 0905 Wt Readings from Last 3 Encounters: 12/09/24 111 lb (50.3 kg) 12/06/24 103 lb (46.7 kg) 11/27/24 103 lb (46.7 kg) Physical Exam Constitutional: General: She is not in acute distress. HENT: Head: Comments: Tenderness over left posterior scalp Mouth/Throat: Mouth: Mucous membranes are moist. Pharynx: Oropharynx is clear. Eyes: Extraocular Movements: Extraocular movements intact. Cardiovascular: Rate and Rhythm: Normal rate and regular rhythm. Heart sounds: No murmur heard. Pulmonary: Effort: No respiratory distress. Breath sounds: No wheezing, rhonchi or rales. Abdominal: General: Bowel sounds are normal. Palpations: Abdomen is soft. Tenderness: There is no abdominal tenderness. There is no guarding. Musculoskeletal: General: Tenderness present. Right lower leg: Edema present. Left lower leg: Edema present. Neurological: General: No focal deficit present. Mental Status: She is alert and oriented to person, place, and time. Cranial Nerves: No cranial nerve deficit. Sensory: No sensory deficit. Motor: No weakness. Psychiatric: Mood and Affect: Mood is anxious. Affect is tearful. Behavior: Behavior is cooperative. Labs and Imaging: Recent Results (from the past 24 hours) CBC auto differential Collection Time: 12/09/24 10:23 AM Result Value Ref Range Auto WBC 9.7 3.6 - 10.7 10*3/uL RBC 2.56 (L) 3.80 - 5.20 10*6/uL Hemoglobin 7.6 (L) 11.7 - 16.0 g/dL Hematocrit 23.5 (L) 35.0 - 47.0 % MCV 91.8 77.0 - 99.0 fL MCH 29.7 26.0 - 34.0 pg MCHC 32.3 30.5 - 36.0 % RDW 18.7 (H) 11.5 - 15.0 % Platelets 311 140 - 440 10*3/uL MPV 10.3 9.0 - 12.7 fL nRBC 0.0 0.0 - 2.0 /100 WBCs Neutrophils Relative 75.8 38.0 - 82.0 % Lymphocytes Relative 12.8 (L) 15.0 - 45.0 % Monocytes Relative 7.8 5.0 - 13.0 % Eosinophils Relative 2.3 0.0 - 6.0 % Basophils Relative 1.1 0.0 - 2.0 % Immature Grans % 0.2 0.0 - 2.0 % Neutrophils Absolute 7.4 1.8 - 7.5 10*3/uL Lymphocytes Absolute 1.2 1.0 - 4.3 10*3/uL Monocytes Absolute 0.8 0.0 - 0.9 10*3/uL Eosinophils Absolute 0.2 0.0 - 0.5 10*3/uL Basophils Absolute 0.1 0.0 - 0.2 10*3/uL Immature Grans Absolute 0.0 <0.1 10*3/uL Renal function panel Collection Time: 12/09/24 10:23 AM Result Value Ref Range SODIUM 136 136 - 145 mmol/L POTASSIUM 3.1 (L) 3.5 - 5.1 mmol/L CHLORIDE 96 (L) 98 - 107 mmol/L CARBON DIOXIDE 32 (H) 23 - 31 mmol/L ANION GAP 8 3 - 13 mmol/L GLUCOSE 79 (L) 82 - 115 mg/dL UREA NITROGEN 19 9 - 23 mg/dL CREATININE 3.73 (H) 0.57 - 1.11 mg/dL eGFR 12.2 (L) >60.0 mL/min/1.73m*2 CALCIUM 7.6 (L) 8.8 - 10.0 mg/dL ALBUMIN 1.5 (L) 3.4 - 4.8 g/dL PHOSPHORUS 1.7 (L) 2.3 - 4.7 mg/dL CBC auto differential Collection Time: 12/10/24 5:42 AM Result Value Ref Range Auto WBC 10.2 3.6 - 10.7 10*3/uL RBC 2.51 (L) 3.80 - 5.20 10*6/uL Hemoglobin 7.3 (L) 11.7 - 16.0 g/dL Hematocrit 23.2 (L) 35.0 - 47.0 % MCV 92.4 77.0 - 99.0 fL MCH 29.1 26.0 - 34.0 pg MCHC 31.5 30.5 - 36.0 % RDW 18.6 (H) 11.5 - 15.0 % Platelets 293 140 - 440 10*3/uL MPV 10.3 9.0 - 12.7 fL nRBC 0.0 0.0 - 2.0 /100 WBCs Neutrophils Relative 74.6 38.0 - 82.0 % Lymphocytes Relative 14.1 (L) 15.0 - 45.0 % Monocytes Relative 7.0 5.0 - 13.0 % Eosinophils Relative 2.6 0.0 - 6.0 % Basophils Relative 1.3 0.0 - 2.0 % Immature Grans % 0.4 0.0 - 2.0 % Neutrophils Absolute 7.6 (H) 1.8 - 7.5 10*3/uL Lymphocytes Absolute 1.4 1.0 - 4.3 10*3/uL Monocytes Absolute 0.7 0.0 - 0.9 10*3/uL Eosinophils Absolute 0.3 0.0 - 0.5 10*3/uL Basophils Absolute 0.1 0.0 - 0.2 10*3/uL Immature Grans Absolute 0.0 <0.1 10*3/uL Comprehensive metabolic panel Collection Time: 12/10/24 5:42 AM Result Value Ref Range SODIUM 135 (L) 136 - 145 mmol/L POTASSIUM 3.4 (L) 3.5 - 5.1 mmol/L CHLORIDE 99 98 - 107 mmol/L CARBON DIOXIDE 26 23 - 31 mmol/L ANION GAP 10 3 - 13 mmol/L UREA NITROGEN 25 (H) 9 - 23 mg/dL CREATININE 4.24 (H) 0.57 - 1.11 mg/dL GLUCOSE 74 (L) 82 - 115 mg/dL CALCIUM 7.5 (L) 8.8 - 10.0 mg/dL AST (SGOT) 36 (H) <34 U/L ALT 11 <30 U/L ALKALINE PHOSPHATASE 125 40 - 150 U/L ALBUMIN 1.4 (L) 3.4 - 4.8 g/dL BILIRUBIN, TOTAL 0.4 <1.2 mg/dL TOTAL PROTEIN 5.7 (L) 6.4 - 8.3 g/dL eGFR 10.5 (L) >60.0 mL/min/1.73m*2 Magnesium Collection Time: 12/10/24 5:42 AM Result Value Ref Range MAGNESIUM 1.8 1.6 - 2.6 mg/dL Lab Results Component Value Date TSH 3.30 09/14/2024 No components found for: B12 No results found for: VITD25 Reviewed: active problem list, medication list, allergies, social history, notes from last encounter, lab results, imaging Follow-up: will follow with you [1] No Known Allergies [2] Current Facility-Administered Medications: acetaminophen (Tylenol) tablet 650 mg, 650 mg, Oral, q6h PRN OR acetaminophen (Tylenol) suppository 650 mg, 650 mg, Rectal, q6h PRN, John Shepherd DO amLODIPine (Norvasc) tablet 5 mg, 5 mg, Oral, Daily, John Shepherd DO, 5 mg at 12/10/24 0806 atorvastatin (Lipitor) tablet 40 mg, 40 mg, Oral, Nightly, John Shepherd DO, 40 mg at 12/09/24 2157 B complex-vitamin C-folic acid (Nephrocaps) capsule 1 capsule, 1 capsule, Oral, Daily, John Shepherd DO, 1 capsule at 12/10/24 0807 cefepime (Maxipime) 1,000 mg in sodium chloride 0.9 % 50 mL IVPB, 1,000 mg, IntraVENous, q12h, Jacob Laguna DO, Stopped at 12/09/24 2228 cholecalciferol (Vitamin D-3) tablet 5,000 Units, 5,000 Units, Oral, Daily, John Shepherd DO, 5,000 Units at 12/10/24 0807 hydrALAZINE (Apresoline) injection 10 mg, 10 mg, IntraVENous, q4h PRN, Radha Reggiemin, DO, 10 mg at 12/09/24 1521 labetalol (Normodyne,Trandate) injection 10 mg, 10 mg, IntraVENous, q6h PRN, Radha Kuzmin, DO, 10 mg at 12/10/24 0807 levETIRAcetam (Keppra) tablet 500 mg, 500 mg, Oral, Daily, John Benitez Pentz, DO, 500 mg at 12/10/24 0806 Lidocaine 4 % patch 1 patch, 1 patch, TransDERmal, Daily, Radha Paredesmin, DO melatonin tablet 5 mg, 5 mg, Oral, Nightly, John Reynagaew Pentz, DO, 5 mg at 12/09/24 2157 ondansetron ODT (Zofran-ODT) disintegrating tablet 4 mg, 4 mg, Oral, q8h PRN OR ondansetron (Zofran) injection 4 mg, 4 mg, IntraVENous, q6h PRN, John Benitez Pentz, DO polyethylene glycol (PEG) 3350 (Miralax) packet 17 g, 17 g, Oral, Daily PRN, John Reynagaew Pentz, DO sevelamer carbonate (Renvela) tablet 800 mg, 800 mg, Oral, TID WC, John Victor Manuel Pentz, DO, 800 mg at 12/10/24 0806 sodium chloride 0.9 % infusion, 250 mL/hr, IntraVENous, PRN, John Victor Manuel Pentz, DO sodium chloride 0.9 % infusion, 5-250 mL/hr, IntraVENous, PRN, John Victor Manuel Pentz, DO sodium chloride 0.9% (NS) flush 5-40 mL, 5-40 mL, IntraVENous, q12h, John Victor Manuel Pentz, DO, 10 mL at 12/10/24 0816 sodium chloride 0.9% (NS) flush 5-40 mL, 5-40 mL, IntraVENous, PRN, John Reynagaew Pentz, DO thiamine (Vitamin B1) tablet 250 mg, 250 mg, Oral, Daily, John Victor Manuel Pentz, DO, 250 mg at 12/10/24 0806 vancomycin (Vancocin) 1,000 mg in sodium chloride 0.9 % 250 mL IVPB (Vial Mate), 20 mg/kg, IntraVENous, Once, John Benitez Pentz, DO [3] Past Medical History: Diagnosis Date Chronic kidney disease (CKD) Hemodialysis patient (CMS/HCC) (HCC) Wednesday, , Wednesday History of blood transfusion 02/27/2022 Hypertension Seizure (HCC) Developed seizure-like activity on 02/24 during hospital admission [4] Past Surgical History: Procedure Laterality Date AV FISTULA PLACEMENT Left 08/07/2022 COLONOSCOPY N/A 01/25/2024 Performed by Chrissy Gilman MD at [facility] ENDOSCOPY IR CVC TUNNELED DIALYSIS CATHETER PLACEMENT 02/27/2022 IR CVC TUNNELED CATHETER PLACEMENT 02/27/2022 Candis Andrade MD [facility] SPECIAL PROCEDURES IR EMBOLIZATION 01/24/2024 IR EMBOLIZATION 01/24/2024 Jovan Glynn MD [facility] SPECIAL PROCEDURES VASCULAR SURGERY Left 11/02/2024 EXCISION OF LEFT UPPER EXTREMITY INFECTED GRAFT (JIM) VASCULAR SURGERY Left 11/05/2024 REVISION OR REPAIR, AV FISTULA (JIM) [5] Family History Problem Relation Name Age of Onset Dementia Mother Stroke Father Prostate cancer Brother 69 Breast cancer Cousin 32 Stomach cancer Mother's Sister 70 [facility] Consult Note Consults HPI The patient has ESRD on thrice-weekly hemodialysis via a left upper extremity access with recent history of AV graft infection, excision, and hematoma evacuation. She currently presents with significant electrolyte abnormalities (notably hypokalemia, hyponatremia, and hypocalcemia) in the context of her dialysis dependence. Nephrology has been consulted for ongoing management of electrolyte derangements, dialysis scheduling, and coordination of care. Her chronic anemia is likely multifactorial, related to ESRD and recent blood losses, and she has received transfusion support during this admission. Renal function remains at baseline (creatinine ~3 mg/dL), and continued close monitoring of volume status, access site integrity, and laboratory parameters is warranted. Medical History[1] Social History Socioeconomic History Marital status: Spouse name: Not on file Number of children: Not on file Years of education: Not on file Highest education level: Not on file Occupational History Not on file Tobacco Use Smoking status: Never Smokeless tobacco: Never Vaping Use Vaping status: Never Used Substance and Sexual Activity Alcohol use: Yes Alcohol/week: 2.0 standard drinks of alcohol Types: 2 Glasses of wine per week Comment: weekly Drug use: Never Sexual activity: Not on file Other Topics Concern Not on file Social History Narrative Not on file Social Drivers of Health Financial Resource Strain: Low Risk (12/09/2024) Overall Financial Resource Strain (CARDIA) Difficulty of Paying Living Expenses: Not hard at all Food Insecurity: No Food Insecurity (12/09/2024) Hunger Vital Sign Worried About Running Out of Food in the Last Year: Never true Ran Out of Food in the Last Year: Never true Transportation Needs: No Transportation Needs (12/09/2024) PRAPARE - Transportation Lack of Transportation (Medical): No Lack of Transportation (Non-Medical): No Physical Activity: Insufficiently Active (12/09/2024) Exercise Vital Sign Days of Exercise per Week: 1 day Minutes of Exercise per Session: 10 min Stress: Stress Concern Present (12/09/2024) [place] [facility] - Occupational Stress Questionnaire Feeling of Stress : Very much Social Connections: Moderately Integrated (12/09/2024) Social Connection and Isolation Panel [NHANES] Frequency of Communication with Friends and Family: More than three times a week Frequency of Social Gatherings with Friends and Family: Three times a week Attends [employer] Services: 1 to 4 times per year Active Member of Clubs or Organizations: Yes Attends Club or Organization Meetings: Never Marital Status: Intimate Partner Violence: Not At Risk (12/09/2024) Humiliation, Afraid, Rape, and Kick questionnaire Fear of Current or Ex-Partner: No Emotionally Abused: No Physically Abused: No Sexually Abused: No Housing Stability: Low Risk (12/09/2024) Housing Stability Vital Sign Unable to Pay for Housing in the Last Year: No Number of Times Moved in the Last Year: 0 Homeless in the Last Year: No Family History[2] Current Medications[3] Scheduled medications Scheduled Meds[4] Continuous medications Continuous Meds[5] PRN medications PRN Meds[6] Review of systems as per HPI otherwise 10 point review systems negative BP (!) 179/101 Pulse 98 Temp 36.9 C (98.4 F) (Temporal) Resp 20 Ht 1.64 m (5' 4.57) Wt 50.3 kg (111 lb) SpO2 99% BMI 18.72 kg/m Input / Output: 24 HR: Intake/Output Summary (Last 24 hours) at 12/09/2024 1623 Last data filed at 12/09/2024 0820 Gross per 24 hour Intake 540 ml Output -- Net 540 ml Physical Exam Alert and oriented x3 NAD EOMI OP clear Neck: supple, No JVD CV: RRR without m/r/g Lungs: CTA bilaterally Abd: soft NT/ND +BS Neuro: grossly intact Skin: no rashes Results from last 7 days Lab Units 12/09/24 1023 12/08/24 2229 SODIUM mmol/L 136 135* POTASSIUM mmol/L 3.1* 2.6* CHLORIDE mmol/L 96* 94* CO2 mmol/L 32* 30 BUN mg/dL 19 17 CREATININE mg/dL 3.73* 3.05* GLUCOSE mg/dL 79* 101 CALCIUM mg/dL 7.6* 8.1* Results from last 7 days Lab Units 12/09/24 1023 12/08/24 2229 SODIUM mmol/L 136 135* POTASSIUM mmol/L 3.1* 2.6* CHLORIDE mmol/L 96* 94* CO2 mmol/L 32* 30 BUN mg/dL 19 17 CREATININE mg/dL 3.73* 3.05* CALCIUM mg/dL 7.6* 8.1* PROTEIN TOTAL g/dL -- 6.4 BILIRUBIN TOTAL mg/dL -- 0.4 ALK PHOS U/L -- 166* ALT U/L -- 14 AST U/L -- 46* GLUCOSE mg/dL 79* 101 Results from last 7 days Lab Units 12/09/24 1023 12/08/24 2229 WBC AUTO 10*3/uL 9.7 11.2* HEMOGLOBIN g/dL 7.6* 6.9* HEMATOCRIT % 23.5* 20.9* PLATELETS 10*3/uL 311 359 XR hip left 2 or 3 views Final Result Arthroplasties in adequate alignment. No acute abnormality. Report Dictated on Electronically Signed By: Honorio Grande MD Electronically Signed Date/Time: 12/09/2024 5:[address] head wo IV contrast Final Result Endplate erosive changes at the C3/C4 intervertebral disc. MRI may be helpful to evaluate for discitis. Report Dictated on Electronically Signed By: Norman Malin MD Electronically Signed Date/Time: 12/08/2024 9:[address] cervical spine wo IV contrast Final Result Endplate erosive changes at the C3/C4 intervertebral disc. MRI may be helpful to evaluate for discitis. Report Dictated on Electronically Signed By: Norman Malin MD Electronically Signed Date/Time: 12/08/2024 9:32 PM EDT Assessment: End-Stage Renal Disease (ESRD) on Hemodialysis Dialysis schedule: MWF via left upper extremity access. Recent history of AV graft infection, excision, and hematoma evacuation. Current admission: Presented after a mechanical fall, with anemia and electrolyte abnormalities. K 2.6 on arrival (corrected with supplementation). No urgent dialysis indications today. Volume status: Stable. No pulmonary edema, no severe hypertension beyond baseline, no signs of fluid overload. Electrolytes: Hypokalemia corrected with supplementation. Hyponatremia mild and stable. Calcium borderline low. Will recheck with morning labs. Acid-base: CO? within acceptable range; no acidosis. Uremia: No encephalopathy, pericarditis, nausea, vomiting, or pruritus suggesting urgent need for dialysis. Anemia: Chronic anemia secondary to ESRD, compounded by recent bleeding and transfusion dependence. Received 1 unit PRBC this admission. Will recheck Hgb and transfuse further PRBCs as indicated. Access: Left upper extremity site currently clean/dry with no drainage or signs of acute infection. Continue to monitor closely. Medications: Resume home phosphate binder (sevelamer), renal vitamins, and continue monitoring for need of HODAN. Plan: No dialysis today; Pt attempted MRI but could not complete the exam. Patient refusing to continue exam. resume next session on Wednesday (MWF schedule). Continue to monitor BMP and electrolytes daily; replace K, Ca, Mg as needed. Transfuse PRBCs for Hgb < 7.0 g/dL; monitor for ongoing anemia. Continue renal diet and fluid restriction. Monitor AV access site for bleeding, hematoma, or infection. Nephrology to follow for dialysis planning and medication adjustments. Please message me through [employer] chat with any questions or concerns. Sean Castaneda MD 12/09/2024 4:23 PM [facility] [place] [address], [address] [place] [id number] Office: [phone] [1] Past Medical History: Diagnosis Date Chronic kidney disease (CKD) Hemodialysis patient (CMS/HCC) (HCC) Wednesday, , Wednesday History of blood transfusion 02/27/2022 Hypertension Seizure (HCC) Developed seizure-like activity on 02/24 during hospital admission [2] Family History Problem Relation Name Age of Onset Dementia Mother Stroke Father Prostate cancer Brother 69 Breast cancer Cousin 32 Stomach cancer Mother's Sister 70 [3] Current Facility-Administered Medications: acetaminophen (Tylenol) tablet 650 mg, 650 mg, Oral, q6h PRN OR acetaminophen (Tylenol) suppository 650 mg, 650 mg, Rectal, q6h PRN, John Shepherd DO amLODIPine (Norvasc) tablet 5 mg, 5 mg, Oral, Daily, John Shepherd DO, 5 mg at 12/09/24 0841 atorvastatin (Lipitor) tablet 40 mg, 40 mg, Oral, Nightly, John Shepherd, B complex-vitamin C-folic acid (Nephrocaps) capsule 1 capsule, 1 capsule, Oral, Daily, John Shepherd DO, 1 capsule at 12/09/24 0842 cefepime (Maxipime) 1,000 mg in sodium chloride 0.9 % 50 mL IVPB, 1,000 mg, IntraVENous, q12h, Jacob Laguna DO, Stopped at 12/09/24 1140 cholecalciferol (Vitamin D-3) tablet 5,000 Units, 5,000 Units, Oral, Daily, John Shepherd DO, 5,000 Units at 12/09/24 0841 hydrALAZINE (Apresoline) injection 10 mg, 10 mg, IntraVENous, q4h PRN, Radhajacquelyn Paredesmin, DO, 10 mg at 12/09/24 1521 labetalol (Normodyne,Trandate) injection 10 mg, 10 mg, IntraVENous, q6h PRN, Radha Kuzmin, DO, 10 mg at 12/09/24 1147 levETIRAcetam (Keppra) tablet 500 mg, 500 mg, Oral, Daily, John Shepherd, DO, 500 mg at 12/09/24 0841 melatonin tablet 5 mg, 5 mg, Oral, Nightly, John Shepherd DO ondansetron ODT (Zofran-ODT) disintegrating tablet 4 mg, 4 mg, Oral, q8h PRN OR ondansetron (Zofran) injection 4 mg, 4 mg, IntraVENous, q6h PRN, John Shepherd, DO polyethylene glycol (PEG) 3350 (Miralax) packet 17 g, 17 g, Oral, Daily PRN, John Shepherd, DO sevelamer carbonate (Renvela) tablet 800 mg, 800 mg, Oral, TID WC, John Shepherd DO, 800 mg at 12/09/24 1147 sodium chloride 0.9 % infusion, 250 mL/hr, IntraVENous, PRN, John Stuartz, DO sodium chloride 0.9 % infusion, 5-250 mL/hr, IntraVENous, PRN, John Stuartz, DO sodium chloride 0.9% (NS) flush 5-40 mL, 5-40 mL, IntraVENous, q12h, John Shepherd, DO sodium chloride 0.9% (NS) flush 5-40 mL, 5-40 mL, IntraVENous, PRN, John Shepherd, DO thiamine (Vitamin B1) tablet 250 mg, 250 mg, Oral, Daily, John Shepherd DO, 250 mg at 12/09/24 0841 vancomycin (Vancocin) 1,000 mg in sodium chloride 0.9 % 250 mL IVPB (Vial Mate), 20 mg/kg, IntraVENous, Once, John Shepherd DO [4] amLODIPine, 5 mg, Oral, Daily atorvastatin, 40 mg, Oral, Nightly B complex-vitamin C-folic acid, 1 capsule, Oral, Daily cefepime, 1,000 mg, IntraVENous, q12h cholecalciferol, 5,000 Units, Oral, Daily levETIRAcetam, 500 mg, Oral, Daily melatonin, 5 mg, Oral, Nightly sevelamer carbonate, 800 mg, Oral, TID WC sodium chloride 0.9%, 5-40 mL, IntraVENous, q12h vitamin B-1, 250 mg, Oral, Daily vancomycin, 20 mg/kg, IntraVENous, Once [5] [6] PRN medications: acetaminophen OR acetaminophen, hydrALAZINE, labetalol, ondansetron ODT OR ondansetron, polyethylene glycol (PEG) 3350, sodium chloride, sodium chloride, sodium chloride 0.9% documented in this encounter [facility] 12-12-2024 Note Return Referral plac ed to [facility] via [facility] per [facility] request. Await review and response regarding ability to accept. TCC notified. [facility] 12-09-2024 Emergency department Note IV re established and blood reconnected to complete infusion US IV nurse called away to trauma. Will re attempt when able Patient placed in hospital bed for comfort while awaiting inpatient room assignment. While removing old bed from room patient IV tubing got caught and IV was displaced. Blood product placed on hold at this time until new US IV can be established. MRI screening completed at this time. Emergency Department Encounter [facility] EMERGENCY DEPT Patient: Apoorva Gonzalez : 1950 Date of Evaluation: 12/08/2024 ED Supervising Physician: Mason Munson MD I personally evaluated Apoorva Gonzalez and made/approved the management plan and take responsibility for the patient management. This will serve as my Supervisory note and shared attestation. I did perform a substantive portion of the visit including all aspects of the Medical Decision Making. I wore appropriate PPE for the entirety of this encounter. In brief, Apoorva Gonzalez is a 74 y.o. that presents to the emergency department with mechanical fall, used walker at baseline. Patient fell backwards, hit her head. Denies LOC, -AC. Denies any other complaints or injuries today. Focused exam: Patient awake, alert, not in acute distress. Head examination reveals cephalohematoma, no laceration or bleeding. Lungs clear to auscultation bilateral. Heart regular rate and rhythm. Abdomen soft nontender. Moving all 4 extremities bilateral without difficulty. Full strength and sensation intact in bilateral upper and lower extremities. Brief ED course/MDM: Patient is 74-year-old female presents after a fall, mechanical, not on anticoagulation. Patient received CT head CT cervical spine which showed concern for discitis. Plan on MRI of the cervical spine for further evaluation and laboratory workup. Dispo pending. Diagnostics interpreted by me: CT scan(s) CT head shows no obvious acute intracranial hemorrhage or mass I personally discussed the patient's management with other clinicians: none All diagnostic, treatment, and disposition decisions were made by myself in conjunction with the Resident. I also supervised saavedra portions of any procedures performed by the Resident. For all further details of the patient's emergency department visit, please see their documentation. (Comment: Please note this report has been produced using speech recognition software and may contain errors related to that system including errors in grammar, punctuation, and spelling, as well as words and phrases that may be inappropriate. If there are any questions or concerns please feel free to contact the dictating provider for clarification.) Mason Munson MD Acute Care [facility] Mason Munson MD 12/08/24 2238 EMERGENCY DEPARTMENT ENCOUNTER Pt Name: Apoorva Gonzalez Birthdate 1950 Date of evaluation: 12/08/2024 ED Provider: ANGELICA HINES DO CHIEF COMPLAINT Chief Complaint Patient presents with Fall Pt presents to ED for mechanical fall while at dinner. Pt family states pt fell backwards and hit her head and now has lump on head, denies LOC. Denies blood thinners. HISTORY OF PRESENT ILLNESS (Location/Symptom, Timing/Onset, Context/Setting, Quality, Duration, Modifying Factors, Severity) Note limiting factors. I wore appropriate PPE for the entirety of this encounter. HPI Apoorva Gonzalez is a 74 y.o. who presents to the emergency department for mechanical fall. Patient usually uses a wheelchair but she stood up to try to help a family member into her car. She then fell backwards hitting her head on the pavement. Fall was witnessed by family and there was no loss of consciousness. Patient is complaining of pain to the back of her head but says there has not been any bleeding. Nursing Notes were reviewed. Limitations to history: None Outside historians: Family REVIEW OF SYSTEMS Review of Systems Pertinent positives and negatives as per HPI. PAST MEDICAL HISTORY Medical History[1] SURGICAL HISTORY Surgical History[2] CURRENT MEDICATIONS Previous Medications ACETAMINOPHEN (TYLENOL) 325 MG TABLET Take 650 mg by mouth every 6 hours as needed. AMLODIPINE (NORVASC) 5 MG TABLET Take 1 tablet (5 mg) by mouth daily. ATORVASTATIN (LIPITOR) 40 MG TABLET Take 1 tablet (40 mg) by mouth Nightly. B COMPLEX-VITAMIN C-FOLIC ACID (NEPHRO-COLEEN) 0.8 MG TABLET Take 0.8 mg by mouth daily. CHOLECALCIFEROL (VITAMIN D-3) 125 MCG (5000 UT) CAPSULE Take 5,000 Units by mouth daily. LEVETIRACETAM (KEPPRA) 500 MG TABLET Take 1 tablet (500 mg) by mouth daily. MAGNESIUM HYDROXIDE (MILK OF MAGNESIA) 2400 MG/10ML SUSPENSION SUSPENSION Take 30 mL by mouth Daily as needed for constipation. MELATONIN 5 MG TABLET Take 1 tablet (5 mg) by mouth Nightly. SEVELAMER (RENAGEL) 800 MG TABLET Take 800 mg by mouth 3 times daily (with meals). Swallow tablet whole; do not crush, break, or chew. THIAMINE HCL (VITAMIN B-1) 250 MG TABLET Take 250 mg by mouth daily. ALLERGIES Patient has no known allergies. FAMILY HISTORY Family History[3] SOCIAL HISTORY Social History[4] SCREENINGS PHYSICAL EXAM ED Triage Vitals [12/08/242000] Temp Heart Rate Resp BP 37.4 C (99.3 F) 108 20 (!) 174/93 SpO2 Temp Source Heart Rate Source Patient Position 98 % Temporal Monitor -- BP Location FiO2 (%) -- -- Physical Exam Constitutional: General: She is not in acute distress. Appearance: Normal appearance. HENT: Head: Normocephalic and atraumatic. Comments: Hematoma noted on the posterior vertex Right Ear: External ear normal. Left Ear: External ear normal. Nose: No congestion or rhinorrhea. Mouth/Throat: Mouth: Mucous membranes are moist. Pharynx: Oropharynx is clear. Eyes: Extraocular Movements: Extraocular movements intact. Pupils: Pupils are equal, round, and reactive to light. Cardiovascular: Rate and Rhythm: Regular rhythm. Tachycardia present. Pulses: Normal pulses. Heart sounds: Normal heart sounds. Pulmonary: Effort: Pulmonary effort is normal. No respiratory distress. Breath sounds: Normal breath sounds. Abdominal: General: Abdomen is flat. There is no distension. Palpations: Abdomen is soft. Tenderness: There is no abdominal tenderness. Musculoskeletal: General: No swelling or deformity. Normal range of motion. Cervical back: Normal range of motion. Skin: General: Skin is warm and dry. Capillary Refill: Capillary refill takes less than 2 seconds. Findings: No rash. Neurological: General: No focal deficit present. Mental Status: She is alert and oriented to person, place, and time. Mental status is at baseline. Psychiatric: Mood and Affect: Mood normal. Behavior: Behavior normal. DIAGNOSTIC RESULTS RADIOLOGY (Per Emergency Physician): Interpretation per the Radiologist below, if available at the time of this note: CT head wo IV contrast Final Result Endplate erosive changes at the C3/C4 intervertebral disc. MRI may be helpful to evaluate for discitis. Report Dictated on Electronically Signed By: Norman Malin MD Electronically Signed Date/Time: 12/08/2024 9:[address] cervical spine wo IV contrast Final Result Endplate erosive changes at the C3/C4 intervertebral disc. MRI may be helpful to evaluate for discitis. Report Dictated on Electronically Signed By: Norman Malin MD Electronically Signed Date/Time: 12/08/2024 9:32 PM EDT MR cervical spine w and wo contrast (Results Pending) LABS: Labs Reviewed CBC WITH AUTO DIFFERENTIAL - Abnormal Result Value Auto WBC 11.2 (*) RBC 2.26 (*) Hemoglobin 6.9 (*) Hematocrit 20.9 (*) MCV 92.5 MCH 30.5 MCHC 33.0 RDW 18.4 (*) Platelets 359 MPV 10.1 nRBC 0.0 Neutrophils Relative 85.6 (*) Lymphocytes Relative 7.4 (*) Monocytes Relative 4.9 (*) Eosinophils Relative 0.9 Basophils Relative 0.8 Immature Grans % 0.4 Neutrophils Absolute 9.6 (*) Lymphocytes Absolute 0.8 (*) Monocytes Absolute 0.6 Eosinophils Absolute 0.1 Basophils Absolute 0.1 Immature Grans Absolute 0.1 (*) COMPREHENSIVE METABOLIC PANEL - Abnormal SODIUM 135 (*) POTASSIUM 2.6 (*) CHLORIDE 94 (*) CARBON DIOXIDE 30 ANION GAP 11 UREA NITROGEN 17 CREATININE 3.05 (*) GLUCOSE 101 CALCIUM 8.1 (*) AST (SGOT) 46 (*) ALT 14 ALKALINE PHOSPHATASE 166 (*) ALBUMIN 1.6 (*) BILIRUBIN, TOTAL 0.4 TOTAL PROTEIN 6.4 eGFR 15.5 (*) BLOOD TYPE AND SCREEN GEL HEMOGLOBIN AND HEMATOCRIT, BLOOD PREPARE RBC All other labs were within normal range or not returned as of this dictation. EMERGENCY DEPARTMENT COURSE and DIFFERENTIAL DIAGNOSIS/MDM: Vitals: Vitals: 12/08/24200012/08/245 BP: (!) 174/93 (!) 172/90 Pulse: 108 101 Resp: 20 16 Temp: 37.4 C (99.3 F) TempSrc: Temporal SpO2: 98% 100% Weight: 50.3 kg (111 lb) Height: 1.626 m (5' 4) The patient presented with a chief complaint of mechanical fall hitting her head. The differential diagnosis associated with this patient's presentation includes intracranial injury, closed head injury,. Our workup consisted of ordering/reviewing labs and imaging. CT of her head is unremarkable and does not show any acute bleeds. CT of the spine shows possible discitis therefore we will order an MRI for follow-up. Given that we were going to need MRI did obtain some baseline labs. CBC shows hemoglobin 6.9. She is chronically anemic usually in the sevens. Will transfuse 1 unit PRBCs. Still awaiting MRI at this time. Patient signed out to my colleague. Please see his documentation for final disposition. Given oxycodone for chronic back pain. ED Course as of 12/08/242346Dec 08, [id number] + fall hit head, CTH fine, possible diskitis on CT? Needs MRI, getting blood for low Hb; [JT] ED Course User Index [JT] Jacob Laguna DO Diagnoses as of 12/08/242346 Fall, initial encounter Closed head injury, initial encounter External records reviewed: none Diagnostics interpreted by me: CT scan(s) as above Discussions with other clinicians: none Chronic conditions impacting care: Hypertension Social determinants of health affecting care: none ED Medications managed: Medications sodium chloride 0.9 % infusion (has no administration in time range) oxyCODONE (Roxicodone) immediate release tablet 5 mg (5 mg Oral Given 12/08/24 2251) potassium chloride CR (Klor-Con M10) ER tablet 40 mEq (40 mEq Oral Given 12/08/24 3298) Prescription drugs considered: Blood transfusion PROCEDURES: Unless otherwise noted below, none Procedures FINAL IMPRESSION 1. Fall, initial encounter 2. Closed head injury, initial encounter DISPOSITION PATIENT REFERRED TO: No follow-up provider specified. DISCHARGE MEDICATIONS: New Prescriptions No medications on file (Comment: Please note this report has been produced using speech recognition software and may contain errors related to that system including errors in grammar, punctuation, and spelling, as well as words and phrases that may be inappropriate. If there are any questions or concerns please feel free to contact the dictating provider for clarification.) ANGELICA HINES DO (electronically signed) Emergency Medicine Provider [1] Past Medical History: Diagnosis Date Chronic kidney disease (CKD) Hemodialysis patient ([facility]/HCC) (HCC) Wednesday, , Wednesday History of blood transfusion 02/27/2022 Hypertension Seizure ([facility]) Developed seizure-like activity on 02/24 during hospital admission [2] Past Surgical History: Procedure Laterality Date AV FISTULA PLACEMENT Left 08/07/2022 COLONOSCOPY N/A 01/25/2024 Performed by Chrissy Gilman MD at [facility] ENDOSCOPY IR CVC TUNNELED DIALYSIS CATHETER PLACEMENT 02/27/2022 IR CVC TUNNELED CATHETER PLACEMENT 02/27/2022 Candis Andrade MD [facility] SPECIAL PROCEDURES IR EMBOLIZATION 01/24/2024 IR EMBOLIZATION 01/24/2024 Jovan Glynn MD [facility] SPECIAL PROCEDURES VASCULAR SURGERY Left 11/02/2024 EXCISION OF LEFT UPPER EXTREMITY INFECTED GRAFT (JIM) VASCULAR SURGERY Left 11/05/2024 REVISION OR REPAIR, AV FISTULA (JIM) [3] Family History Problem Relation Name Age of Onset Dementia Mother Stroke Father Prostate cancer Brother 69 Breast cancer Cousin 32 Stomach cancer Mother's Sister 70 [4] Social History Socioeconomic History Marital status: Tobacco Use Smoking status: Never Smokeless tobacco: Never Vaping Use Vaping status: Never Used Substance and Sexual Activity Alcohol use: Yes Alcohol/week: 2.0 standard drinks of alcohol Types: 2 Glasses of wine per week Comment: weekly Drug use: Never Social Drivers of Health Financial Resource Strain: Patient Unable To Answer (10/23/2024) Overall Financial Resource Strain (CARDIA) Difficulty of Paying Living Expenses: Patient unable to answer Food Insecurity: No Food Insecurity (10/31/2024) Hunger Vital Sign Worried About Running Out of Food in the Last Year: Never true Ran Out of Food in the Last Year: Never true Transportation Needs: No Transportation Needs (10/31/2024) PRAPARE - Transportation Lack of Transportation (Medical): No Lack of Transportation (Non-Medical): No Intimate Partner Violence: Not At Risk (10/31/2024) Humiliation, Afraid, Rape, and Kick questionnaire Fear of Current or Ex-Partner: No Emotionally Abused: No Physically Abused: No Sexually Abused: No Housing Stability: Low Risk (10/31/2024) Housing Stability Vital Sign Unable to Pay for Housing in the Last Year: No Number of Times Moved in the Last Year: 0 Homeless in the Last Year: No Angelica Hines DO Resident 12/08/24 4175 Cosigned by Mason Munson MD at 12/09/2024 9:45 PM EDT Emergency Department Encounter Location: [facility] Patient: Apoorva Gonzalez : 1950 Date of evaluation: 12/08/2024 ED Provider: Jacob Laguna DO Time received sign-out: 2300 Apoorva Gonzalez was checked out to me by Dr. Angelica Hines, DO. Please see his/her initial documentation for details of the patient's initial ED presentation, physical exam and completed studies. In brief, Apoorva Gonzalez is a 74 y.o. adult that presented to the emergency department following a mechanical fall. She usually uses a wheelchair and fell when family members were trying to help her into her car. CT head is negative, she did have pain in her back. She was also found to have anemia with a hemoglobin of 6.9, CT of the cervical spine was concerning for discitis. Pain for MRI studies and final disposition I have reviewed and interpreted all of the currently available lab results and diagnostics from this visit: Results for orders placed or performed during the hospital encounter of 12/08/24 CBC auto differential Collection Time: 12/08/24 10:29 PM Result Value Ref Range Auto WBC 11.2 (H) 3.6 - 10.7 10*3/uL RBC 2.26 (L) 3.80 - 5.20 10*6/uL Hemoglobin 6.9 (LL) 11.7 - 16.0 g/dL Hematocrit 20.9 (L) 35.0 - 47.0 % MCV 92.5 77.0 - 99.0 fL MCH 30.5 26.0 - 34.0 pg MCHC 33.0 30.5 - 36.0 % RDW 18.4 (H) 11.5 - 15.0 % Platelets 359 140 - 440 10*3/uL MPV 10.1 9.0 - 12.7 fL nRBC 0.0 0.0 - 2.0 /100 WBCs Neutrophils Relative 85.6 (H) 38.0 - 82.0 % Lymphocytes Relative 7.4 (L) 15.0 - 45.0 % Monocytes Relative 4.9 (L) 5.0 - 13.0 % Eosinophils Relative 0.9 0.0 - 6.0 % Basophils Relative 0.8 0.0 - 2.0 % Immature Grans % 0.4 0.0 - 2.0 % Neutrophils Absolute 9.6 (H) 1.8 - 7.5 10*3/uL Lymphocytes Absolute 0.8 (L) 1.0 - 4.3 10*3/uL Monocytes Absolute 0.6 0.0 - 0.9 10*3/uL Eosinophils Absolute 0.1 0.0 - 0.5 10*3/uL Basophils Absolute 0.1 0.0 - 0.2 10*3/uL Immature Grans Absolute 0.1 (H) <0.1 10*3/uL Comprehensive metabolic panel Collection Time: 12/08/24 10:29 PM Result Value Ref Range SODIUM 135 (L) 136 - 145 mmol/L POTASSIUM 2.6 (LL) 3.5 - 5.1 mmol/L CHLORIDE 94 (L) 98 - 107 mmol/L CARBON DIOXIDE 30 23 - 31 mmol/L ANION GAP 11 3 - 13 mmol/L UREA NITROGEN 17 9 - 23 mg/dL CREATININE 3.05 (H) 0.57 - 1.11 mg/dL GLUCOSE 101 82 - 115 mg/dL CALCIUM 8.1 (L) 8.8 - 10.0 mg/dL AST (SGOT) 46 (H) <34 U/L ALT 14 <30 U/L ALKALINE PHOSPHATASE 166 (H) 40 - 150 U/L ALBUMIN 1.6 (L) 3.4 - 4.8 g/dL BILIRUBIN, TOTAL 0.4 <1.2 mg/dL TOTAL PROTEIN 6.4 6.4 - 8.3 g/dL eGFR 15.5 (L) >60.0 mL/min/1.73m*2 Type and screen Collection Time: 12/08/24 11:00 PM Result Value Ref Range ABO Grouping O Antibody Screen NEG Rh Type POS Prepare RBC: 1 Units Collection Time: 12/09/24 2:32 AM Result Value Ref Range PRODUCT CODE G0333F47 Unit Number [id number] Unit ABO O Unit RH POS Crossmatch interpretation COMP Dispense Status Transfused Blood Expiration Date Product Blood Type 5100 Unit Volume 300 mL XR hip left 2 or 3 views Final Result Arthroplasties in adequate alignment. No acute abnormality. Report Dictated on Electronically Signed By: Honorio Grande MD Electronically Signed Date/Time: 12/09/2024 5:[address] head wo IV contrast Final Result Endplate erosive changes at the C3/C4 intervertebral disc. MRI may be helpful to evaluate for discitis. Report Dictated on Electronically Signed By: Norman Malin MD Electronically Signed Date/Time: 12/08/2024 9:[address] cervical spine wo IV contrast Final Result Endplate erosive changes at the C3/C4 intervertebral disc. MRI may be helpful to evaluate for discitis. Report Dictated on Electronically Signed By: Norman Malin MD Electronically Signed Date/Time: 12/08/2024 9:32 PM EDT MR cervical spine w and wo contrast (Results Pending) Final ED Course and MDM: Apoorva Gonzalez is a 74 y.o. whose care was signed out to me by the outgoing provider. In brief, the patient presented following a fall with concern of discitis on CT. MRI studies have been ordered and patient will require admission to complete MR studies, broad-spectrum antibiotics including vancomycin and Zosyn have been ordered for the patient. Patient was also given additional analgesia with Roxicodone, she was also transfused 1 unit PRBCs for her anemia. On-call CDU provider was paged regarding the patient who agreed that the patient warrants admission to complete her MR studies, patient is agreeable to plan for admission. Medications sodium chloride 0.9 % infusion (has no administration in time range) vancomycin (Vancocin) 1,000 mg in sodium chloride 0.9 % 250 mL IVPB (Vial Mate) (has no administration in time range) levETIRAcetam (Keppra) tablet 500 mg (has no administration in time range) melatonin tablet 5 mg (has no administration in time range) sevelamer carbonate (Renvela) tablet 800 mg (has no administration in time range) cholecalciferol (Vitamin D-3) tablet 5,000 Units (has no administration in time range) B complex-vitamin C-folic acid (Nephrocaps) capsule 1 capsule (has no administration in time range) atorvastatin (Lipitor) tablet 40 mg (has no administration in time range) amLODIPine (Norvasc) tablet 5 mg (has no administration in time range) thiamine (Vitamin B1) tablet 250 mg (has no administration in time range) sodium chloride 0.9% (NS) flush 5-40 mL (has no administration in time range) sodium chloride 0.9% (NS) flush 5-40 mL (has no administration in time range) sodium chloride 0.9 % infusion (has no administration in time range) acetaminophen (Tylenol) tablet 650 mg (has no administration in time range) Or acetaminophen (Tylenol) suppository 650 mg (has no administration in time range) ondansetron ODT (Zofran-ODT) disintegrating tablet 4 mg (has no administration in time range) Or ondansetron (Zofran) injection 4 mg (has no administration in time range) polyethylene glycol (PEG) 3350 (Miralax) packet 17 g (has no administration in time range) cefepime (Maxipime) 1,000 mg in sodium chloride 0.9 % 50 mL IVPB (has no administration in time range) oxyCODONE (Roxicodone) immediate release tablet 5 mg (5 mg Oral Given 12/08/24 2251) potassium chloride CR (Klor-Con M10) ER tablet 40 mEq (40 mEq Oral Given 12/08/24 2828) oxyCODONE (Roxicodone) immediate release tablet 5 mg (5 mg Oral Given 12/09/24 0239) Final Impression 1. Fall, initial encounter 2. Closed head injury, initial encounter DISPOSITION Observation 12/09/2024 04:45:13 AM (Please note that portions of this note may have been completed with a voice recognition program. Efforts were made to edit the dictations but occasionally words are mis-transcribed.) DO Jacob Dejesus DO Resident 12/09/24824 Cosigned by Mason Munson MD at 12/09/2024 9:45 PM EDT documented in this encounter [facility] 12-09-2024 Note [facility] 12-09-2024 History and physical note Attending History and Physical Admit Date: 12/08/2024 PCP: Roxie Spain CHIEF COMPLAINT: Fall Reason for Admission: Rule out discitis History Obtained From: patient HISTORY OF PRESENT ILLNESS: Patient is a 74-year-old female with past medical history of ESRD on HD, PSH AV graft placement (Dr. Fernandez 2022), excision of infected LUE AV graft 11/02/24 and RTOR on 11/05 for evacuation of LUE hematoma, chronic anemia requiring blood transfusions, HTN, seizure disorder, A-fib, history of C. difficile. She has had a complicated year. From august 14, to August 24 she had an infected hematoma in the right thigh and anterior hip. She had a wound VAC after it was drained. She returned to the hospital on August 26, 2024 for the expanding hematoma requiring 2 units of PRBCs. From September 13 to October 12, 2024, she was treated for new onset atrial fibrillation complicated by COVID-19 infection. At that time, she was also positive for Enterobacter cloacae bacteremia, Klebsiella pneumoniae, Klebsiella oxytoca. She was sent to the ICU transiently due to high fevers, tachycardia, and tachypnea which might have been a drug reaction to meropenem she was on. She was also treated for C. difficile colitis. She had a tunneled HD catheter placed on discharge. She was discharged to nursing facility. On 10/22 there was concern that she had a fistula infection and could be potentially the source. She had an excision of the left upper extremity infected graft on November 02, 2024. From November 04 to November 05, she was having bleeding from her AV fistula requiring blood transfusions and on November 05 she had an ex lap of the left upper extremity with evacuation of hematoma. She developed increasing pain. Vascular surgery evaluated and and they evacuated a 50 cc old clot, and irrigated this extensively without any further bleeding. She was discharged on 11/11/2024. She presented back the following day on 11/12/2024, after developing drainage from her left upper extremity site. It was determined by vascular that the incision should be left open for drainage. She was evaluated by PT with recommendation for return to SNF on discharge. Plan was for discharge back to [facility] on 11/13/24 however pt required new authorization from [facility] to return to the facility. Auth obtained 11/15/24- patient deemed medically stable and ready for discharge. She was seen again at the ER on 11/22/2024 after being sent from her dialysis center for hemoglobin of 6.5. Repeat labs revealed a hemoglobin of 7.8 and she was deemed stable for discharge that same day. On 12/06/2024 she was seen as an outpatient for her vascular surgery follow-up. She was doing well at that time. Unfortunately patient was at dinner on 12/08/2024 and had a mechanical fall while at dinner. Normally she uses a wheelchair but she stood up to try to help her family member and fell backwards hitting her head on the pavement. No loss of consciousness. She denies any chest pain, palpitations or dizziness prior to the fall. She has no urinary or GI complaints. Her left arm fistula appears clean under the bandage. Her biggest concern at this point is actually left hip pain. She states her headache is better from before. She does not have any severe neck pain. In the emergency department, patient was hypertensive and mildly tachycardic but other vital signs were stable. Chemistry profile revealed hyponatremia at 135, hypokalemia at 2.6, hypochloremia at 94, creatinine of 3.05. Calcium 8.1. Alk phos 166, albumin 1.6, AST 46. She has a small leukocytosis with a WBC count of 11.2. Her hemoglobin is low at 6.9. She does have a mild left shift. -CT head/cervical spine completed shows endplate erosive changes at the C3/C4 intervertebral disc. No acute intracranial findings Patient will be admitted to observation for nephrology review regarding her electrolyte abnormalities, MRI of the cervical spine to rule out discitis prior to discharge, and blood transfusion. In the ER patient was given 40 mEq of potassium, vancomycin and cefepime for broad-spectrum coverage. Past Medical History: Medical History[1] Past Surgical History: Surgical History[2] Social History: Social History Socioeconomic History Marital status: Spouse name: Not on file Number of children: Not on file Years of education: Not on file Highest education level: Not on file Occupational History Not on file Tobacco Use Smoking status: Never Smokeless tobacco: Never Vaping Use Vaping status: Never Used Substance and Sexual Activity Alcohol use: Yes Alcohol/week: 2.0 standard drinks of alcohol Types: 2 Glasses of wine per week Comment: weekly Drug use: Never Sexual activity: Not on file Other Topics Concern Not on file Social History Narrative Not on file Social Drivers of Health Financial Resource Strain: Patient Unable To Answer (10/23/2024) Overall Financial Resource Strain (CARDIA) Difficulty of Paying Living Expenses: Patient unable to answer Food Insecurity: No Food Insecurity (10/31/2024) Hunger Vital Sign Worried About Running Out of Food in the Last Year: Never true Ran Out of Food in the Last Year: Never true Transportation Needs: No Transportation Needs (10/31/2024) PRAPARE - Transportation Lack of Transportation (Medical): No Lack of Transportation (Non-Medical): No Physical Activity: Not on file Stress: Not on file Social Connections: Not on file Intimate Partner Violence: Not At Risk (10/31/2024) Humiliation, Afraid, Rape, and Kick questionnaire Fear of Current or Ex-Partner: No Emotionally Abused: No Physically Abused: No Sexually Abused: No Housing Stability: Low Risk (10/31/2024) Housing Stability Vital Sign Unable to Pay for Housing in the Last Year: No Number of Times Moved in the Last Year: 0 Homeless in the Last Year: No Family History: Family History[3] Medications Prior to Admission: Current Medications[4] Medications Reconciliation: Medications were reviewed in chart but unable to verify accurate with patient Allergies: Allergies[5] REVIEW OF SYSTEMS: 10 point ROS obtained, as per HPI, otherwise NEG Vitals: BP (!) 159/91 Pulse 100 Temp 37.1 C (98.7 F) Resp 16 Ht 5' 4 (1.626 m) Wt 111 lb (50.3 kg) SpO2 100% BMI 19.05 kg/m BMI Classification: Normal Weight (BMI 18.5-24.9) Pulse Ox: SpO2 Av.5 % Min: 98 % Max: 100 % Supplemental O2: PHYSICAL EXAM: Physical Exam Constitutional: Appearance: Normal appearance. HENT: Head: Normocephalic. Comments: Bump on the posterior patient's head Eyes: Extraocular Movements: Extraocular movements intact. Pupils: Pupils are equal, round, and reactive to light. Cardiovascular: Rate and Rhythm: Normal rate and regular rhythm. Pulmonary: Effort: Pulmonary effort is normal. Breath sounds: Normal breath sounds. Abdominal: General: Abdomen is flat. Bowel sounds are normal. Palpations: Abdomen is soft. Skin: General: Skin is warm and dry. Comments: Left arm fistula appears dry and clean Neurological: Mental Status: She is alert. DATA: CBC: Recent Labs 12/08/242228 WBC 11.2* RBC 2.26* HGB 6.9* HCT 20.9* MCV 92.5 RDW 18.4* PLT 359 BMP: Recent Labs 12/08/242228 NA 135* K 2.6* CL 94* CO2 30 BUN 17 CREATININE 3.05* GLUCOSE 101 CALCIUM 8.1* ANIONGAP 11 LIVER PROFILE: Recent Labs 12/08/24 2229 AST 46* ALT 14 BILITOT 0.4 ALKPHOS 166* PROT 6.4 PT/INR: No results for input(s): PROTIME, INR in the last 72 hours. CARDIAC ENZYMES: No results for input(s): TROPONINI in the last 72 hours. Procalcitonin: No results found for: PROCAL Urine Culture: No results found for this or any previous visit. COVID-19 PCR: No results for input(s): COVID19 in the last 72 hours. I reviewed: [x] laboratory results [x] radiographic results At the time of today's encounter. Pt was advised of the results. Data: (CAT1) Reviewed 3 or more notes from different specialty or health system (each=1). (CAT1) Reviewed 3 or more labs/studies ordered by another provider not previously counted (each=1, panels count as 1). (CAT1) Ordered 3 or more new labs and/or studies (each=1, panels count as 1). (CAT3) Discussed with ED provider, Dr. Laguna , regarding patient's eval & mgmt thus far, and agree with the plan for hospitalization. (LOW: 2x CAT1 or independent historian MOD: 3x CAT1 or 1x CAT3 EXTENSIVE: 3x CAT1 and 1x CAT3) Assessment Discussed management with the ED provider and agree with hospitalization. Acute, acute on chronic, unstable/uncontrolled chronic problems/diagnoses: Mechanical fall Acute on chronic anemia Rule out discitis Hyponatremia Hypokalemia Mild leukocytosis Left hip pain Stable chronic problems affecting care, new non-acute diagnoses: ESRD on HD - Nephrology consultation for electrolyte/hemodialysis management HTN - Resume home amlodipine. Titrate as needed. 3. Seizure disorder - Resume home Keppra to prevent seizures Plan As a result of the above findings & factors, the following mgmt was pursued: - Patient's electrolyte abnormalities are likely secondary to her end-stage renal disease. Agree with supplementation given severe hypokalemia less than 3. Will allow nephrology to evaluate in the morning for further correction given her dialysis requirements. -Status post 1 unit PRBC. I did consent patient for more blood if needed. She is agreeable. Repeat hemoglobin after 1 unit - Patient's primary point of pain is actually her left hip. X-rays ordered to evaluate for fracture given fall. -Endplate erosive changes noted on CT scan. Was given empiric antibiotics in the emergency department. Monitor for further antibiotic needs based on MRI results. She denies significant pain from this area. *If patient's MRI is negative, she corrects appropriately after blood transfusion, and nephrology is comfortable after dialysis with patient's electrolyte status, can consider discharge home. - am labs, replace lytes prn - PT/OT/CM/SW - delirium precautions: increase activity and limit nighttime disturbances - DVT prophylaxis: SCDs and encourage ambulation Complexity: Undiagnosed new problem with uncertain prognosis (MOD). Risk: Admission to hospital-level care was considered or occurred (HIGH). Advance Directive: Prior Anticipated Discharge - Date -12/09/2024 - Location - Home - Pending the following -see above Total time spent (which include face to face and non face to face encounters) : 72 minutes. Extended Emergency Contact Information Primary Emergency Contact: Deshawn Crystal Mobile Relation: Brother Technical Coordinator needed? No Secondary Emergency Contact: Edward Ruggiero Mobile Relation: Significant Other Preferred language: Cambodian Technical Coordinator needed? No ADVANCED [employer]ARE [employer]ANNING Apoorva Navarro [place] : 1950 Primary Care Physician: Roxie Spain The patient and/or family/surrogate voluntarily agreed to participate in ACP services. Patient s cognitive capacity: Alert and oriented Code Status: [_] [FULL CODE - Continue all advanced life support: CPR,intubation,invasive procedures] [X] [DNR-CCA - DO NOT do CPR, intubation] [_] [DNR-CDL SERVICE TECHNICIAN - Comfort care only] [_] DNR form [was/was not] signed Summary of discussion: The patient health care POA/ surrogate is the following: Brother. Patient states I have lived a long life, I do not want to be on those machines. I clarified that patient was referring to her DNR/DNI status. She says yes she is a DO NOT RESUSCITATE, that is what she means. Therefore based on patient's wishes, she will be DNR/DNI. I answered all the patient/family questions that I could within the range and scope of the current medical situation. We discussed the medical conditions, risks, benefits, outcomes, and goals of care at this time for the patient's medical issues at hand in the face of the patient's chronic issues and current presentation. Total time spent: 5 minutes were spent discussing the patient's resuscitation status, advance care planning, and end of life care, with patient and/or family/surrogate. John Shepherd DO Division of Hospitalist Medicine [facility] [1] Past Medical History: Diagnosis Date Chronic kidney disease (CKD) Hemodialysis patient (CMS/HCC) (HCC) Wednesday, , Wednesday History of blood transfusion 02/27/2022 Hypertension Seizure (HCC) Developed seizure-like activity on 02/24 during hospital admission [2] Past Surgical History: Procedure Laterality Date AV FISTULA PLACEMENT Left 08/07/2022 COLONOSCOPY N/A 01/25/2024 Performed by Chrissy Gilman MD at [facility] ENDOSCOPY IR CVC TUNNELED DIALYSIS CATHETER PLACEMENT 02/27/2022 IR CVC TUNNELED CATHETER PLACEMENT 02/27/2022 Candis Andrade MD [facility] SPECIAL PROCEDURES IR EMBOLIZATION 01/24/2024 IR EMBOLIZATION 01/24/2024 Jovan Glynn MD [facility] SPECIAL PROCEDURES VASCULAR SURGERY Left 11/02/2024 EXCISION OF LEFT UPPER EXTREMITY INFECTED GRAFT (JIM) VASCULAR SURGERY Left 11/05/2024 REVISION OR REPAIR, AV FISTULA (JIM) [3] Family History Problem Relation Name Age of Onset Dementia Mother Stroke Father Prostate cancer Brother 69 Breast cancer Cousin 32 Stomach cancer Mother's Sister 70 [4] Current Facility-Administered Medications: cefepime (Maxipime) 2,000 mg in sodium chloride 0.9 % 50 mL IVPB Mini-Bag Plus, 2,000 mg, IntraVENous, q24h, Jacob Laguna DO sodium chloride 0.9 % infusion, 250 mL/hr, IntraVENous, PRN, Angelica Hines DO vancomycin (Vancocin) 1,000 mg in sodium chloride 0.9 % 250 mL IVPB (Vial Mate), 20 mg/kg, IntraVENous, Once, Jacob Laguna DO Current Outpatient Medications: acetaminophen (Tylenol) 325 MG tablet, Take 650 mg by mouth every 6 hours as needed., Disp: , Rfl: amLODIPine (Norvasc) 5 MG tablet, Take 1 tablet (5 mg) by mouth daily., Disp: , Rfl: atorvastatin (Lipitor) 40 MG tablet, Take 1 tablet (40 mg) by mouth Nightly., Disp: 30 tablet, Rfl: 11 B complex-vitamin C-folic acid (Nephro-Coleen) 0.8 MG tablet, Take 0.8 mg by mouth daily., Disp: , Rfl: cholecalciferol (Vitamin D-3) 125 MCG (5000 UT) capsule, Take 5,000 Units by mouth daily., Disp: , Rfl: levETIRAcetam (Keppra) 500 MG tablet, Take 1 tablet (500 mg) by mouth daily., Disp: 30 tablet, Rfl: 1 magnesium hydroxide (Milk of Magnesia) 2400 MG/10ML suspension suspension, Take 30 mL by mouth Daily as needed for constipation., Disp: , Rfl: melatonin 5 MG tablet, Take 1 tablet (5 mg) by mouth Nightly., Disp: , Rfl: sevelamer (Renagel) 800 MG tablet, Take 800 mg by mouth 3 times daily (with meals). Swallow tablet whole; do not crush, break, or chew., Disp: , Rfl: Thiamine HCl (vitamin B-1) 250 MG tablet, Take 250 mg by mouth daily., Disp: , Rfl: [5] No Known Allergies documented in this encounter [facility] 12-06-2024 History of Present illness Narrative 12/06/2024 [facility] 1950 Chief Complaint Patient presents with Post-op 2nd PO LUE exploration + hematoma evacuation 11/06/24, s/p LUE AVG excision 11/02/24 Patient returns for post operative evaluation status post explantation of left upper extremity AVG secondary to exposed graft and infection. This was complicated by return to OR for hematoma and wound dehiscence. She presents today for a wound check. She has been doing well. Mentation is significantly improved. She notes the drainage from the arm has dried up. She denies hand pain and numbness. Surgical History[1] Physical Exam: The incision(s) are healing without evidence of infection. Heart rhythm is regular. Left radial pulse is palpable. There is dried scab forming in the middle incision. The remaining incisions are nearly fully healed. Assessment: Post-operative explant of infected left upper arm AVG Problem List Items Addressed This Visit None Visit Diagnoses ESRD (end stage renal disease) on dialysis (HCC) - Primary Final suture removed from the mid upper arm incision. Steri strips placed. No evidence of drainage. Vessel mapping for consideration of new access creation scheduled for this afternoon. Plan for wound check in 2 weeks with discussion of new access creation at that time. Raffy Fernandez MD Vascular Surgery [1] Past Surgical History: Procedure Laterality Date AV FISTULA PLACEMENT Left 08/07/2022 COLONOSCOPY N/A 01/25/2024 Performed by Chrissy Gilman MD at [facility] ENDOSCOPY IR CVC TUNNELED DIALYSIS CATHETER PLACEMENT 02/27/2022 IR CVC TUNNELED CATHETER PLACEMENT 02/27/2022 Candis Andrade MD [facility] SPECIAL PROCEDURES IR EMBOLIZATION 01/24/2024 IR EMBOLIZATION 01/24/2024 Jovan Glynn MD [facility] SPECIAL PROCEDURES VASCULAR SURGERY Left 11/02/2024 EXCISION OF LEFT UPPER EXTREMITY INFECTED GRAFT (JIM) VASCULAR SURGERY Left 11/05/2024 REVISION OR REPAIR, AV FISTULA (JIM) documented in this encounter [facility] 11-27-2024 History of Present illness Narrative 11/27/2024 Apoorva Navarro [place] 1950 Chief Complaint Patient presents with Post-op 1st PO LUE exploration + hematoma evacuation 11/06/24, s/p LUE AVG excision 11/02/24 Patient returns for post operative evaluation status post explantation of left upper extremity brachial artery to axillary vein AVG that was complicated by return to OR for hematoma and wound dehiscence. She is overall doing better. She presents today with her brother Deshawn. Her mentation has improved significantly. She continues to have drainage from the open portion of the wounds. She denies left hand and arm pain other than the occasional shooting pain down her arm that comes every once in awhile. Surgical History[1] Physical Exam: The incision(s) are healing without evidence of infection. Heart rhythm is regular. Left radial pulse is palpable. There is old clot present within the open portion of the middle upper arm wound. There is also old clot present in the inferior aspect of the superior incision where there are loose corie. Sutures intact. Assessment: Post-operative explant of infected left upper arm AVG Problem List Items Addressed This Visit None Visit Diagnoses ESRD (end stage renal disease) on dialysis (HCC) - Primary Relevant Orders Vascular US vessel map for hemodialysis access arm bilateral All but one suture in the middle incision were removed at today's appointment, including the few corie. Steri-strips placed. Follow up in 1 week for wound check. Additionally, the patient will need new access creation and therefore I have ordered new vessel mapping. Raffy Fernandez MD Vascular Surgery [1] Past Surgical History: Procedure Laterality Date AV FISTULA PLACEMENT Left 08/07/2022 COLONOSCOPY N/A 01/25/2024 Performed by Chrissy Gilman MD at [facility] ENDOSCOPY IR CVC TUNNELED DIALYSIS CATHETER PLACEMENT 02/27/2022 IR CVC TUNNELED CATHETER PLACEMENT 02/27/2022 Candis Andrade MD [facility] SPECIAL PROCEDURES IR EMBOLIZATION 01/24/2024 IR EMBOLIZATION 01/24/2024 Jovan Glynn MD [facility] SPECIAL PROCEDURES VASCULAR SURGERY Left 11/02/2024 EXCISION OF LEFT UPPER EXTREMITY INFECTED GRAFT (JIM) VASCULAR SURGERY Left 11/05/2024 REVISION OR REPAIR, AV FISTULA (JIM) documented in this encounter [facility] 11-22-2024 Emergency department Note Called [facility] [phone]. Spoke with CYNTHIA Perry. Advised pt sent in from dialysis for low hgb of 6.5, [facility] ED hgb 7.8. pt stable and will be sent back. [facility] 11-22-2024 Emergency department Note Called [facility] [phone]. Spoke with CYNTHIA Perry. Advised pt sent in from dialysis for low hgb of 6.5, [facility] ED hgb 7.8. pt stable and will be sent back. EMERGENCY DEPARTMENT ENCOUNTER Pt Name: Apoorva Gonzalez Birthdate 1950 Date of evaluation: 11/22/2024 ED Provider: Kev Warner MD CHIEF COMPLAINT Chief Complaint Patient presents with Other C/O low hgb from dialysis center of 6.5 this am during dialysis pt has no complaints HISTORY OF PRESENT ILLNESS (Location/Symptom, Timing/Onset, Context/Setting, Quality, Duration, Modifying Factors, Severity) Note limiting factors. I wore appropriate PPE for the entirety of this encounter. HPI Apoorva Gonzalez is a 74 y.o. who presents to the emergency department with chief complaint of anemia. She sent from her dialysis center as she had a hemoglobin of 6.5 reportedly this morning. She does have anemia of chronic disease. She denies any acute complaints. She states she has had some mild oozing of blood from her left upper arm that she states was from a cut. She is a poor historian. She had a recent admission for wound dehiscence and excision of left upper extremity graft. She has a tunneled dialysis catheter which they use to her left chest. Otherwise denies any acute complaints. Denies any rectal bleeding or melena. Denies any vaginal bleeding. Not on blood thinners. Nursing Notes were reviewed. Limitations to history: None Outside historians: None REVIEW OF SYSTEMS Review of Systems Constitutional: Negative for fever. Gastrointestinal: Negative for vomiting. Hematological: Bruises/bleeds easily. Pertinent positives and negatives as per HPI. PAST MEDICAL HISTORY Medical History[1] SURGICAL HISTORY Surgical History[2] CURRENT MEDICATIONS Previous Medications ACETAMINOPHEN (TYLENOL) 325 MG TABLET Take 650 mg by mouth every 6 hours as needed. AMLODIPINE (NORVASC) 5 MG TABLET Take 1 tablet (5 mg) by mouth daily. ATORVASTATIN (LIPITOR) 40 MG TABLET Take 1 tablet (40 mg) by mouth Nightly. B COMPLEX-VITAMIN C-FOLIC ACID (NEPHRO-COLEEN) 0.8 MG TABLET Take 0.8 mg by mouth daily. CHOLECALCIFEROL (VITAMIN D-3) 125 MCG (5000 UT) CAPSULE Take 5,000 Units by mouth daily. LEVETIRACETAM (KEPPRA) 500 MG TABLET Take 1 tablet (500 mg) by mouth daily. MAGNESIUM HYDROXIDE (MILK OF MAGNESIA) 2400 MG/10ML SUSPENSION SUSPENSION Take 30 mL by mouth Daily as needed for constipation. MELATONIN 5 MG TABLET Take 1 tablet (5 mg) by mouth Nightly. SEVELAMER (RENAGEL) 800 MG TABLET Take 800 mg by mouth 3 times daily (with meals). Swallow tablet whole; do not crush, break, or chew. THIAMINE HCL (VITAMIN B-1) 250 MG TABLET Take 250 mg by mouth daily. ALLERGIES Patient has no known allergies. FAMILY HISTORY Family History[3] SOCIAL HISTORY Social History[4] SCREENINGS [place] Coma Scale Best Eye Response: Spontaneous Best Verbal Response: Confused Best Motor Response: Follows commands [place] Coma Scale Score: 14 PHYSICAL EXAM ED Triage Vitals [11/22/24 1557] Temp Heart Rate Resp BP 36.3 C (97.4 F) 85 18 (!) 154/91 SpO2 Temp Source Heart Rate Source Patient Position 100 % Oral Monitor Lying BP Location FiO2 (%) Right arm -- Physical Exam Vitals and nursing note reviewed. Constitutional: General: She is not in acute distress. Appearance: She is well-developed. She is not ill-appearing. HENT: Head: Normocephalic. Eyes: Conjunctiva/sclera: Conjunctivae normal. Cardiovascular: Rate and Rhythm: Normal rate. Pulmonary: Effort: Pulmonary effort is normal. No respiratory distress. Musculoskeletal: General: No swelling. Cervical back: Neck supple. Skin: General: Skin is warm and dry. Capillary Refill: Capillary refill takes less than 2 seconds. Comments: Fistula graft site left upper extremity with mild residual dehiscence, there is no active bleeding, no infection, it is firm to the touch to the bicep area but not tender Neurological: Mental Status: She is alert. Psychiatric: Mood and Affect: Mood normal. DIAGNOSTIC RESULTS Procedures/EKG: EKG was reviewed by myself. Physician EKG interpretation can be found in [facility] RADIOLOGY (Per Emergency Physician): Interpretation per the Radiologist below, if available at the time of this note: No orders to display ED BEDSIDE ULTRASOUND: Performed by ED Physician - none LABS: Labs Reviewed CBC WITH AUTO DIFFERENTIAL - Abnormal Result Value Auto WBC 8.6 RBC 2.62 (*) Hemoglobin 7.8 (*) Hematocrit 23.9 (*) MCV 91.2 MCH 29.8 MCHC 32.6 RDW 17.8 (*) Platelets 575 (*) MPV 10.3 nRBC 0.0 Neutrophils Relative 65.3 Lymphocytes Relative 18.4 Monocytes Relative 9.3 Eosinophils Relative 4.2 Basophils Relative 2.3 (*) Immature Grans % 0.5 Neutrophils Absolute 5.6 Lymphocytes Absolute 1.6 Monocytes Absolute 0.8 Eosinophils Absolute 0.4 Basophils Absolute 0.2 Immature Grans Absolute 0.0 IPF 3 BASIC METABOLIC PANEL - Abnormal SODIUM 134 (*) POTASSIUM 3.1 (*) CHLORIDE 94 (*) CARBON DIOXIDE 27 UREA NITROGEN 10 CREATININE 2.28 (*) GLUCOSE 81 (*) CALCIUM 8.4 (*) ANION GAP 13 eGFR 22.0 (*) BLOOD TYPE AND SCREEN GEL All other labs were within normal range or not returned as of this dictation. EMERGENCY DEPARTMENT COURSE and DIFFERENTIAL DIAGNOSIS/MDM: Vitals: Vitals: 11/22/24 1557 BP: (!) 154/91 BP Location: Right arm Patient Position: Lying Pulse: 85 Resp: 18 Temp: 36.3 C (97.4 F) TempSrc: Oral SpO2: 100% Weight: 46.7 kg (103 lb) Height: 1.626 m (5' 4) 74-year-old female presents due to anemia. Differential anemia of chronic disease, acute blood loss anemia, GI bleed. Basic labs ordered. Hemoglobin is 7.8. She is hypokalemic but just dialyzed so will not replace her potassium. She is stable for discharge and outpatient follow-up. Diagnoses as of 11/22/24 1712 Anemia of chronic disease Medications - No data to display REVAL: CRITICAL CARE TIME CONSULTS: None PROCEDURES: Unless otherwise noted below, none Procedures Patients symptoms are consistent with sepsis, severe sepsis, or septic shock (If yes use .sepsiscoremeasure): FINAL IMPRESSION 1. Anemia of chronic disease DISPOSITION Discharge 11/22/2024 05:12:36 PM PATIENT REFERRED TO: No follow-up provider specified. DISCHARGE MEDICATIONS: New Prescriptions No medications on file (Comment: Please note this report has been produced using speech recognition software and may contain errors related to that system including errors in grammar, punctuation, and spelling, as well as words and phrases that may be inappropriate. If there are any questions or concerns please feel free to contact the dictating provider for clarification.) Kev Warner MD (electronically signed) Emergency Medicine Provider [1] Past Medical History: Diagnosis Date Chronic kidney disease (CKD) Hemodialysis patient (CMS/HCC) (HCC) Wednesday, , Wednesday History of blood transfusion 02/27/2022 Hypertension Seizure (HCC) Developed seizure-like activity on 02/24 during hospital admission [2] Past Surgical History: Procedure Laterality Date AV FISTULA PLACEMENT Left 08/07/2022 COLONOSCOPY N/A 01/25/2024 Performed by Chrissy Gilman MD at [facility] ENDOSCOPY IR CVC TUNNELED DIALYSIS CATHETER PLACEMENT 02/27/2022 IR CVC TUNNELED CATHETER PLACEMENT 02/27/2022 Candis Andrade MD [facility] SPECIAL PROCEDURES IR EMBOLIZATION 01/24/2024 IR EMBOLIZATION 01/24/2024 Jovan Glynn MD [facility] SPECIAL PROCEDURES VASCULAR SURGERY Left 11/02/2024 EXCISION OF LEFT UPPER EXTREMITY INFECTED GRAFT (JIM) VASCULAR SURGERY Left 11/05/2024 REVISION OR REPAIR, AV FISTULA (JIM) [3] Family History Problem Relation Name Age of Onset Dementia Mother Stroke Father Prostate cancer Brother 69 Breast cancer Cousin 32 Stomach cancer Mother's Sister 70 [4] Social History Socioeconomic History Marital status: Tobacco Use Smoking status: Never Smokeless tobacco: Never Vaping Use Vaping status: Never Used Substance and Sexual Activity Alcohol use: Yes Alcohol/week: 2.0 standard drinks of alcohol Types: 2 Glasses of wine per week Comment: weekly Drug use: Never Social Drivers of Health Financial Resource Strain: Patient Unable To Answer (10/23/2024) Overall Financial Resource Strain (CARDIA) Difficulty of Paying Living Expenses: Patient unable to answer Food Insecurity: No Food Insecurity (10/31/2024) Hunger Vital Sign Worried About Running Out of Food in the Last Year: Never true Ran Out of Food in the Last Year: Never true Transportation Needs: No Transportation Needs (10/31/2024) PRAPARE - Transportation Lack of Transportation (Medical): No Lack of Transportation (Non-Medical): No Intimate Partner Violence: Not At Risk (10/31/2024) Humiliation, Afraid, Rape, and Kick questionnaire Fear of Current or Ex-Partner: No Emotionally Abused: No Physically Abused: No Sexually Abused: No Housing Stability: Low Risk (10/31/2024) Housing Stability Vital Sign Unable to Pay for Housing in the Last Year: No Number of Times Moved in the Last Year: 0 Homeless in the Last Year: No Kev Warner MD 11/22/241714 documented in this encounter [facility] 11-22-2024 Physician Emergency department Note EMERGENCY DEPARTMENT ENCOUNTER Pt Name: Apoorva Gonzalez Birthdate 1950 Date of evaluation: 11/22/2024 ED Provider: Kev Warner MD CHIEF COMPLAINT Chief Complaint Patient presents with Other C/O low hgb from dialysis center of 6.5 this am during dialysis pt has no complaints HISTORY OF PRESENT ILLNESS (Location/Symptom, Timing/Onset, Context/Setting, Quality, Duration, Modifying Factors, Severity) Note limiting factors. I wore appropriate PPE for the entirety of this encounter. HPI Apoorva Gonzalez is a 74 y.o. who presents to the emergency department with chief complaint of anemia. She sent from her dialysis center as she had a hemoglobin of 6.5 reportedly this morning. She does have anemia of chronic disease. She denies any acute complaints. She states she has had some mild oozing of blood from her left upper arm that she states was from a cut. She is a poor historian. She had a recent admission for wound dehiscence and excision of left upper extremity graft. She has a tunneled dialysis catheter which they use to her left chest. Otherwise denies any acute complaints. Denies any rectal bleeding or melena. Denies any vaginal bleeding. Not on blood thinners. Nursing Notes were reviewed. Limitations to history: None Outside historians: None REVIEW OF SYSTEMS Review of Systems Constitutional: Negative for fever. Gastrointestinal: Negative for vomiting. Hematological: Bruises/bleeds easily. Pertinent positives and negatives as per HPI. PAST MEDICAL HISTORY Medical History[1] SURGICAL HISTORY Surgical History[2] CURRENT MEDICATIONS Previous Medications ACETAMINOPHEN (TYLENOL) 325 MG TABLET Take 650 mg by mouth every 6 hours as needed. AMLODIPINE (NORVASC) 5 MG TABLET Take 1 tablet (5 mg) by mouth daily. ATORVASTATIN (LIPITOR) 40 MG TABLET Take 1 tablet (40 mg) by mouth Nightly. B COMPLEX-VITAMIN C-FOLIC ACID (NEPHRO-COLEEN) 0.8 MG TABLET Take 0.8 mg by mouth daily. CHOLECALCIFEROL (VITAMIN D-3) 125 MCG (5000 UT) CAPSULE Take 5,000 Units by mouth daily. LEVETIRACETAM (KEPPRA) 500 MG TABLET Take 1 tablet (500 mg) by mouth daily. MAGNESIUM HYDROXIDE (MILK OF MAGNESIA) 2400 MG/10ML SUSPENSION SUSPENSION Take 30 mL by mouth Daily as needed for constipation. MELATONIN 5 MG TABLET Take 1 tablet (5 mg) by mouth Nightly. SEVELAMER (RENAGEL) 800 MG TABLET Take 800 mg by mouth 3 times daily (with meals). Swallow tablet whole; do not crush, break, or chew. THIAMINE HCL (VITAMIN B-1) 250 MG TABLET Take 250 mg by mouth daily. ALLERGIES Patient has no known allergies. FAMILY HISTORY Family History[3] SOCIAL HISTORY Social History[4] SCREENINGS [place] Coma Scale Best Eye Response: Spontaneous Best Verbal Response: Confused Best Motor Response: Follows commands [place] Coma Scale Score: 14 PHYSICAL EXAM ED Triage Vitals [11/22/24 1557] Temp Heart Rate Resp BP 36.3 C (97.4 F) 85 18 (!) 154/91 SpO2 Temp Source Heart Rate Source Patient Position 100 % Oral Monitor Lying BP Location FiO2 (%) Right arm -- Physical Exam Vitals and nursing note reviewed. Constitutional: General: She is not in acute distress. Appearance: She is well-developed. She is not ill-appearing. HENT: Head: Normocephalic. Eyes: Conjunctiva/sclera: Conjunctivae normal. Cardiovascular: Rate and Rhythm: Normal rate. Pulmonary: Effort: Pulmonary effort is normal. No respiratory distress. Musculoskeletal: General: No swelling. Cervical back: Neck supple. Skin: General: Skin is warm and dry. Capillary Refill: Capillary refill takes less than 2 seconds. Comments: Fistula graft site left upper extremity with mild residual dehiscence, there is no active bleeding, no infection, it is firm to the touch to the bicep area but not tender Neurological: Mental Status: She is alert. Psychiatric: Mood and Affect: Mood normal. DIAGNOSTIC RESULTS Procedures/EKG: EKG was reviewed by myself. Physician EKG interpretation can be found in [facility] RADIOLOGY (Per Emergency Physician): Interpretation per the Radiologist below, if available at the time of this note: No orders to display ED BEDSIDE ULTRASOUND: Performed by ED Physician - none LABS: Labs Reviewed CBC WITH AUTO DIFFERENTIAL - Abnormal Result Value Auto WBC 8.6 RBC 2.62 (*) Hemoglobin 7.8 (*) Hematocrit 23.9 (*) MCV 91.2 MCH 29.8 MCHC 32.6 RDW 17.8 (*) Platelets 575 (*) MPV 10.3 nRBC 0.0 Neutrophils Relative 65.3 Lymphocytes Relative 18.4 Monocytes Relative 9.3 Eosinophils Relative 4.2 Basophils Relative 2.3 (*) Immature Grans % 0.5 Neutrophils Absolute 5.6 Lymphocytes Absolute 1.6 Monocytes Absolute 0.8 Eosinophils Absolute 0.4 Basophils Absolute 0.2 Immature Grans Absolute 0.0 IPF 3 BASIC METABOLIC PANEL - Abnormal SODIUM 134 (*) POTASSIUM 3.1 (*) CHLORIDE 94 (*) CARBON DIOXIDE 27 UREA NITROGEN 10 CREATININE 2.28 (*) GLUCOSE 81 (*) CALCIUM 8.4 (*) ANION GAP 13 eGFR 22.0 (*) BLOOD TYPE AND SCREEN GEL All other labs were within normal range or not returned as of this dictation. EMERGENCY DEPARTMENT COURSE and DIFFERENTIAL DIAGNOSIS/MDM: Vitals: Vitals: 11/22/24 1557 BP: (!) 154/91 BP Location: Right arm Patient Position: Lying Pulse: 85 Resp: 18 Temp: 36.3 C (97.4 F) TempSrc: Oral SpO2: 100% Weight: 46.7 kg (103 lb) Height: 1.626 m (5' 4) 74-year-old female presents due to anemia. Differential anemia of chronic disease, acute blood loss anemia, GI bleed. Basic labs ordered. Hemoglobin is 7.8. She is hypokalemic but just dialyzed so will not replace her potassium. She is stable for discharge and outpatient follow-up. Diagnoses as of 11/22/24 1712 Anemia of chronic disease Medications - No data to display REVAL: CRITICAL CARE TIME CONSULTS: None PROCEDURES: Unless otherwise noted below, none Procedures Patients symptoms are consistent with sepsis, severe sepsis, or septic shock (If yes use .sepsiscoremeasure): FINAL IMPRESSION 1. Anemia of chronic disease DISPOSITION Discharge 11/22/2024 05:12:36 PM PATIENT REFERRED TO: No follow-up provider specified. DISCHARGE MEDICATIONS: New Prescriptions No medications on file (Comment: Please note this report has been produced using speech recognition software and may contain errors related to that system including errors in grammar, punctuation, and spelling, as well as words and phrases that may be inappropriate. If there are any questions or concerns please feel free to contact the dictating provider for clarification.) Kev Warner MD (electronically signed) Emergency Medicine Provider [1] Past Medical History: Diagnosis Date Chronic kidney disease (CKD) Hemodialysis patient (CMS/HCC) (HCC) Wednesday, , Wednesday History of blood transfusion 02/27/2022 Hypertension Seizure (HCC) Developed seizure-like activity on 02/24 during hospital admission [2] Past Surgical History: Procedure Laterality Date AV FISTULA PLACEMENT Left 08/07/2022 COLONOSCOPY N/A 01/25/2024 Performed by Chrissy Gilman MD at [facility] ENDOSCOPY IR CVC TUNNELED DIALYSIS CATHETER PLACEMENT 02/27/2022 IR CVC TUNNELED CATHETER PLACEMENT 02/27/2022 Candis Andrade MD [facility] SPECIAL PROCEDURES IR EMBOLIZATION 01/24/2024 IR EMBOLIZATION 01/24/2024 Jovan Glynn MD [facility] SPECIAL PROCEDURES VASCULAR SURGERY Left 11/02/2024 EXCISION OF LEFT UPPER EXTREMITY INFECTED GRAFT (JIM) VASCULAR SURGERY Left 11/05/2024 REVISION OR REPAIR, AV FISTULA (JIM) [3] Family History Problem Relation Name Age of Onset Dementia Mother Stroke Father Prostate cancer Brother 69 Breast cancer Cousin 32 Stomach cancer Mother's Sister 70 [4] Social History Socioeconomic History Marital status: Tobacco Use Smoking status: Never Smokeless tobacco: Never Vaping Use Vaping status: Never Used Substance and Sexual Activity Alcohol use: Yes Alcohol/week: 2.0 standard drinks of alcohol Types: 2 Glasses of wine per week Comment: weekly Drug use: Never Social Drivers of Health Financial Resource Strain: Patient Unable To Answer (10/23/2024) Overall Financial Resource Strain (CARDIA) Difficulty of Paying Living Expenses: Patient unable to answer Food Insecurity: No Food Insecurity (10/31/2024) Hunger Vital Sign Worried About Running Out of Food in the Last Year: Never true Ran Out of Food in the Last Year: Never true Transportation Needs: No Transportation Needs (10/31/2024) PRAPARE - Transportation Lack of Transportation (Medical): No Lack of Transportation (Non-Medical): No Intimate Partner Violence: Not At Risk (10/31/2024) Humiliation, Afraid, Rape, and Kick questionnaire Fear of Current or Ex-Partner: No Emotionally Abused: No Physically Abused: No Sexually Abused: No Housing Stability: Low Risk (10/31/2024) Housing Stability Vital Sign Unable to Pay for Housing in the Last Year: No Number of Times Moved in the Last Year: 0 Homeless in the Last Year: No Kev Warner MD 11/22/24 171 [facility] 11-16-2024 History of Present illness Narrative Pt was followed by the Palliative Care Team during hospitalization at [facility]. Provider is recommending continued Palliative follow up in the community. Referral made too [facility]. Info faxed to [phone] documented in this encounter [facility] 11-15-2024 Note [facility] 11-15-2024 Hospital course Narrative Hospitalist Discharge Summary Apoorva Gonzalez : 1950 Admit date: 11/12/2024 Discharge date: 11/15/2024 Admitting Physician: Edson Velazquez MD Primary Care Physician: Roxie Spain Visit Status: Observation Code Status: DNR-CCA BRIEF HOSPITAL COURSE: Apoorva is a 74 y.o. female with past medical history of CKD, hemodialysis (/), history of blood transfusion, Hypertension, and seizure disorder who presents from [facility] with chief complaint of left upper extremity graft site complication with bloody drainage. She presents as a direct transfer from [facility] due to complications of left upper extremity graft. She was recently admitted and discharged on 11/11 in the afternoon. She notes that since being home had drainage of left upper extremity site. She had excision of left upper extremity graft on November 02, 2024. Seen by infectious disease during that hospitalization and plan for course of Bactrim renally dosed through November 13. She had evacuation of a hematoma on November 05, 2024. On evaluation at [facility] ER she was noted to have a white count of 10.9 (down trended from 12.6 the day prior. Hemoglobin 9.3 (increased from 7.0 the day prior). BMP grossly unremarkable for ESRD patient. ED physician at [facility] discussed with vascular surgery and plan for admit with vascular surgery consult. Case was discussed with [place] emergency room physician and patient admitted for further evaluation and management. Pt was seen by Vascular surgery no signs of wound dehiscence. The middle arm incision was reported per vascular to be left open intentionally to allow for drainage. Vascular recommended wet to dry dressing to middle upper arm incision. Wrap with kerlex and compression with rosey wrap. She was evaluated by PT with recommendation for return to SNF on discharge. She was seen by nephrology with plan to continue with T-TH-Sat HD treatments. Hgb in ED noted to be 7.1, repeat prior to discharge 7.2. Patient has been refusing blood draws. Plan was for discharge back to [facility] today 11/13/24 however pt requires new authorization from [facility] to return to the facility. Auth obtained 11/15/24- patient deemed medically stable and ready for discharge. Acute, acute on chronic, unstable/uncontrolled chronic problems/discharge diagnoses: Complications of left upper extremity graft Leukocytosis - resolved Acute blood loss anemia - stable Stable chronic problems affecting care, new non-acute discharge diagnoses: Medical History[1] Procedures: As above Hospital Course: See discharge diagnoses list above and medication adjustments below in med rec.The patient is discharged in improved and stable condition. Consults: IP CONSULT TO VASCULAR SURGERY IP CONSULT TO NEPHROLOGY IP CONSULT TO WOUND PREVENTION INPATIENT CONSULT TO WOUND CARE PROVIDERS IP CONSULT TO CASE MANAGEMENT IP CONSULT TO PSYCHIATRY Discharge Instructions: Diet: Dietary Orders (From admission, onward) Start Ordered 11/14/24 1425 Supplement:Breakfast; Nepro w/CARB Steady Until discontinued Question Answer Comment Frequency Breakfast Select supplement: Nepro w/CARB Steady 11/14/24 1424 11/14/24 1424 Adult diet Regular Diet effective now Question: Diet type Answer: Regular 11/14/24 1424 11/14/24 1424 Supplement:Lunch, Dinner; Vanilla Magic Cup Until discontinued Question Answer Comment Frequency Lunch Frequency Dinner Select supplement: Vanilla Magic Cup 11/14/24 1424 Activity: as tolerated Recommended Outpatient Tests: Disposition: Patient discharged in stable condition to SNF. Greater than 31 minutes spent discharging the patient and coming up with patient discharge plan. Vitals: BP 150/73 (BP Location: Right arm, Patient Position: Sitting) Pulse 61 Temp 36.7 C (98.1 F) (Temporal) Resp 16 Ht 5' 4 (1.626 m) Wt 109 lb 4.8 oz (49.6 kg) SpO2 100% BMI 18.76 kg/m Pulse Ox: SpO2 Av % Min: 82 % Max: 100 % Supplemental O2: Physical Exam Cardiovascular: Rate and Rhythm: Bradycardia present. Pulses: Normal pulses. Pulmonary: Effort: Pulmonary effort is normal. No respiratory distress. Abdominal: Palpations: Abdomen is soft. Musculoskeletal: Comments: LUE dressing+ dry and intact Skin: General: Skin is warm and dry. Capillary Refill: Capillary refill takes less than 2 seconds. Neurological: Mental Status: She is alert and oriented to person, place, and time. LABS: Recent Labs 11/12/24 1525 11/13/24 0001 NA 140 137 K 4.0 4.0 CL 104 103 CO2 24 23 BUN 15 16 CREATININE 3.37* 3.51* GLUCOSE 78* 62* CALCIUM 8.1* 7.6* Recent Labs 11/12/24 1450 11/13/24 0001 11/13/24 1312 WBC 10.9* 10.1 -- RBC 3.18* 2.47* -- HGB 9.3* 7.1* 7.2* HCT 29.0* 22.7* 23.2* MCV 91.2 91.9 -- MCH 29.2 28.7 -- MCHC 32.1 31.3 -- RDW 17.0* 17.0* -- PLT 407 495* -- MPV 10.5 10.3 -- Discharge Medications: Medication List CONTINUE taking these medications acetaminophen 325 MG tablet Commonly known as: Tylenol amLODIPine 5 MG tablet Commonly known as: Norvasc Take 1 tablet (5 mg) by mouth daily. atorvastatin 40 MG tablet Commonly known as: Lipitor Take 1 tablet (40 mg) by mouth Nightly. B complex-vitamin C-folic acid 0.8 MG tablet cholecalciferol 125 MCG (5000 UT) capsule Commonly known as: Vitamin D-3 levETIRAcetam 500 MG tablet Commonly known as: Keppra Take 1 tablet (500 mg) by mouth daily. magnesium hydroxide 2400 MG/10ML suspension suspension Commonly known as: Milk of Magnesia melatonin 5 MG tablet Take 1 tablet (5 mg) by mouth Nightly. oxyCODONE 5 MG immediate release tablet Commonly known as: Roxicodone Take 1 tablet (5 mg) by mouth every 6 hours as needed for severe pain (7-10) or moderate pain (4-6) for up to 5 days. sevelamer 800 MG tablet Commonly known as: Renagel sulfamethoxazole-trimethoprim 800-160 MG tablet Commonly known as: Bactrim DS Take 1 tablet by mouth daily for 4 days. vitamin B-1 250 MG tablet STOP taking these medications calcium acetate 667 MG tablet Commonly known as: Phoslo ASK your doctor about these medications polyethylene glycol (PEG) 3350 17 g packet Commonly known as: Miralax Take 17 g by mouth Daily as needed (constipation) for up to 3 days. Ask about: Should I take this medication? Recommended Follow-up: Roxie Judit [address] [facility] [place] [address] Schedule an appointment as soon as possible for a visit [facility] [address] [place] [phone] Complexity of Follow up: [] Moderate Complexity: follow up within 7-14 calendar days (98299) [x] Severe Complexity: follow up within 7 calendar days (99024) Follow up Testing, Pending results or Referrals at Transitional Care Visit: [x] yes [] no Instructions to MA: Please call patient on day after discharge (must document patient contacted within 2 business days of discharge). Follow up questions for MA: 1. Did you get medications filled and taking them as instructed from discharge? 2. Are you following your discharge instructions from your hospital stay? 3. Please confirm patient is scheduled for a follow up appointment within the above time frame. Signed: Megan Alaniz NP [facility] 11/15/2024, 11:40 AM [1] Past Medical History: Diagnosis Date Chronic kidney disease (CKD) Hemodialysis patient (CMS/HCC) (HCC) Wednesday, , Wednesday History of blood transfusion 02/27/2022 Hypertension Seizure (HCC) Developed seizure-like activity on 02/24 during hospital admission Cosigned by Kevin Do MD at 11/15/2024 8:56 PM EDT documented in this encounter [facility] 11-15-2024 Nurse Note Report called to nurse at [facility]. All questions answered. 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 [facility] 11-15-2024 Nurse Note Report called to nurse at [facility]. All questions answered. 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 03:50 Pt refusing daily lab work, FREDI Decker notified. NO new orders Patient Name: Apoorva Gonzalez Patient : 1950 Acct: [id number] Date of Admission: 11/12/2024 Room[facility]Bed: [facility] A Code Status: DNR-CCA Allergies: Allergies[1] Diagnosis: Problem List[2] Treatment: Hemodialysis 1:1 Priority: Routine Location: Bedside Diabetic: No NPO: No Isolation Precautions: Contact Consent for Treatment Verified: Yes Blood Consent Verified: Not Applicable ICEBOAT: Identify, Consent, Equipment, HepB Status, Orders Complete, Access Verified, Timeliness Second Clinician Verifying: Ottoniel Travis Time out performed prior to access at 1230. Report Received from Primary RN at 0847. Primary RN (First Initial, Last Name, Title): Ottoniel Travis RN Incapacitated Nurse Education Completed: Yes HBsAg ONLY: Date Drawn: January 22, 2024 Results: Negative HBsAb: Date Drawn: January 22, 2024 Results: Immune >10 Order Dialyzer: Nipro Na+ Modeling: Not Applicable Dialysate Temperature (C): 36 Blood Flow Rate (BFR): 400 Dialysate Flow Rate (DFR): 600 Access to be Utilized Access: Tunneled Catheter Location: Internal Jugular Side: Left Needle gauge: Not Applicable + Bruit/Thrill: Not Applicable First Use X-ray Verified: Not Applicable OK to use line order: Yes Site Assessment: Signs and Symptoms of Infection/Inflammation: None If yes: Not Applicable Dressing: Dry and Intact Site Prep: Medical Aseptic Technique Dressing Changed this Treatment: Yes If yes, by whom: Juli MARIE Date of Last Dressing Change: November 14, [address]?: Yes Red Alcohol Caps in place?: Yes Gauze Dressing?: No Non-Dialysis Use?: No Comment: Flows: Good and Patent If access problem, who was notified: Pre and Post-Assessment Patient Vitals for the past 8 hrs: Level of Consciousness Oriented X Heart Rhythm O2 Device Bilateral Breath Sounds Skin Color Skin Condition/Temp Abdomen Inspection Bowel Sounds (All Quadrants) LUE Edema RLE Edema LLE Edema Pre-Hemodialysis Comments Pain Interventions 11/14/24 1209 Alert (0) 2 Regular None (Room air) Diminished -- Warm;Dry Soft;Nondistended Active None None None Patient agreeable to treatment, but not oriented x3. Patient's POADeshawn, called to obtain consent for this admission. -- 11/14/24 1500 -- -- -- -- -- Ashen Warm;Dry Soft;Nondistended Active -- -- -- -- -- 11/14/24 1557 Alert (0) 2 Regular None (Room air) Diminished Ashen Warm;Dry Soft Active -- -- -- -- -- 11/14/24 1607 -- -- -- -- -- -- -- -- -- -- -- -- -- Medication (See MAR) Labs Lab Results Component Value Date/Time WBC 10.1 11/13/2024 0001 HGB 7.2 (L) 11/13/2024 1312 HGB 9.1 10/05/2024 1419 HCT 23.2 (L) 11/13/2024 1312 PLT 495 (H) 11/13/20242422 NA 137 11/13/20242422 K 4.0 11/13/20242422 CL 103 11/13/2024 0001 CO2 23 11/13/20242422 BUN 16 11/13/20242422 CREATININE 3.51 (H) 11/13/20242422 CALCIUM 7.6 (L) 11/13/20242422 PHOS 2.7 10/26/2024 0657 IV Drips and Rate/Dose Continuous Meds[3] Safety - Before each treatment: Dialysis Machine No.: [id number] RO Machine Number: [id number] Dialyzer Lot No.: [id number] Tubing Lot Number: [id number] All Connections Secure: Yes Venous Parameters Set: Yes Arterial Parameters Set: Yes NS Bag: Yes Saline Line Double Clamped: Yes Dialyzer: Nipro Prime Volume (mL): 200 mL RO Machine Number: [id number] RO Machine Log Sheet Completed: Yes Machine Alarm Self Test: Completed, Passed (The machine passed all tests at 1208) (11/14/24 1209) Air Foam Detector: Proper Function, Tested Extracorporeal Circuit Tested for Integrity: Yes Machine Conductivity: 13.8 Manual Conductivity: 13.6 Manual Ph: 7.2 Bleach Test (Neg): Yes Bath Temperature: 36 C (96.8 F) Conductivity Meter Serial #: [id number] Machine Functioning Alarm Free? Yes Dialysis Bath: K+ (Potassium): 2 Ca+ (Calcium): 2.5 Na+ (Sodium): 137 HCO3 (Bicarb): 33 Chlorine Testing - Before each treatment and every 4 hours: Time On: 1235 Time Off: 1547 Treatment Goal: 1L Weight Height: 162.6 cm (5' 4) (11/14/24 0625) Weight: 53.1 kg (117 lb) (11/12/24 1254) BMI (Calculated): 20.07 (11/12/24 1254) 1st check: less than 0.1 ppm at: 1208 2nd check: less than 0.1 ppm at: 1410 3rd check: Not Applicable (if greater than 0.1 ppm, then check every 30 minutes from secondary) Access Flows and Pressures Patient Vitals for the past 8 hrs: Blood Flow Rate (mL/min) Ultrafiltration Rate (ml/hr) Arterial Pressure (mmHg) Venous Pressure (mmHg) TMP DFR Access Visible Intra-Hemodialysis Comments 11/14/24 1235 200 mL/min 500 ml/hr -40 mmHg 30 mmHg 90 600 Yes Treament initiatiated. All lines secured, bed is in lowest and locked position, and call light is within the patient's reach 11/14/24 1238 400 mL/min 500 ml/hr -130 mmHg 100 mmHg 90 600 Yes BFR to 400, Patient resting 11/14/24 1245 400 mL/min 500 ml/hr -120 mmHg 100 mmHg 90 600 Yes Patient resting, UF Removed- 110 11/14/24 1300 400 mL/min 500 ml/hr -140 mmHg 100 mmHg 90 600 Yes Patient resting, UF Removed- 209 11/14/24 1315 400 mL/min 580 ml/hr -150 mmHg 120 mmHg 90 600 Yes 200mL flush performed for patency.UF goal appropriately adjusted. UF Removed-335 11/14/24 1330 400 mL/min 580 ml/hr -150 mmHg 230 mmHg -- 600 Yes Increase in venous pressure noted, 200mL rinse performed to verify patency. Clot noted in venous drip chamber. Blood given back to patient, and lines and dialyser changed 11/14/24 1341 200 mL/min 580 ml/hr -30 mmHg 20 mmHg 90 600 Yes Treatment resumed with new lines and dialyser. All lines secured and UF goal adjusted appropriately 11/14/24 1345 400 mL/min -- -160 mmHg 100 mmHg 90 600 -- BFR to 400. UF Removed-572 11/14/24 1400 400 mL/min 950 ml/hr -170 mmHg 100 mmHg 90 600 Yes 100 mL flush performed to verify patency. UF goal appropriately adjusted. Patient resting, UF removed- 717 11/14/24 1415 400 mL/min 1020 ml/hr -170 mmHg 130 mmHg 90 600 Yes 100mL flush performed to verify patency. UF Removed- 975 11/14/24 1430 400 mL/min 1090 ml/hr -170 mmHg 140 mmHg 90 600 Yes 100mL flush performed to varify patency. UF goal appropriately adjusted. UF Removed- 1220 11/14/24 1445 400 mL/min 1160 ml/hr -170 mmHg 230 mmHg 90 600 Yes 100mL flush performed for patency. UF Removed- 1479 11/14/24 1500 400 mL/min 1160 ml/hr -190 mmHg 250 mmHg 100 600 Yes 200mL flush performed due to increasing venous pressure. UF Removed- 18511/14/24 1515 400 mL/min 1160 ml/hr -190 mmHg 210 mmHg 100 600 Yes Patient resting. UF Removed- 207111/14/24 1530 400 mL/min 1160 ml/hr -180 mmHg 310 mmHg 90 600 Yes Physician at bedside, UF Removed- 242211/14/24 1547 0 mL/min 0 ml/hr -- -- -- -- Yes Treamet completed slightly early due to clotting in the venous chamber. Blood returned to patient per policy. UF Removed- 2950 Vital Signs Patient Vitals for the past 24 hrs: BP Temp Temp src Pulse Resp SpO2 Height 11/14/24 1557 (!) 175/82 36.2 C (97.2 F) -- 81 16 (!) 82 % -- 11/14/24 1547 159/75 -- -- 82 -- -- -- 11/14/24 1530 135/96 -- -- 84 -- -- -- 11/14/24 1515 160/79 -- -- 81 -- -- -- 11/14/24 1500 145/91 -- -- 78 -- -- -- 11/14/24 1445 150/72 -- -- 74 -- -- -- 11/14/24 1430 133/65 -- -- 69 -- -- -- 11/14/24 1415 119/79 -- -- 59 -- -- -- 11/14/24 1400 141/72 -- -- 56 -- -- -- 11/14/24 1345 153/64 -- -- 60 -- -- -- 11/14/24 1330 148/58 -- -- 83 -- -- -- 11/14/24 1315 119/65 -- -- 92 -- -- -- 11/14/24 1300 134/85 -- -- 61 -- -- -- 11/14/24 1245 145/66 -- -- 52 -- -- -- 11/14/24 1238 136/68 -- -- 59 -- -- -- 11/14/24 1235 156/72 -- -- 56 -- -- -- 11/14/24 1209 144/73 36.4 C (97.6 F) -- 59 18 96 % -- 11/14/24 1115 128/72 36.7 C (98.1 F) Temporal 62 17 100 % -- 11/14/24 0741 130/72 36.8 C (98.3 F) Temporal 58 17 98 % -- 11/14/24 0625 -- -- -- -- -- -- 1.626 m (5' 4) 11/14/24 0306 146/80 36.4 C (97.6 F) Temporal 70 16 95 % -- 11/13/24 2331 142/98 -- -- -- -- -- -- 11/13/24 2307 (!) 163/79 36.9 C (98.4 F) Temporal 81 18 97 % -- 11/13/24 1927 147/77 36.7 C (98 F) Temporal 86 16 99 % -- Post-Dialysis Arterial Catheter Locking Solution: Normal Saline- 2mL Venous Catheter Locking Solution: Normal Saline- 2.1mL Post-Treatment Procedures: Blood returned, Catheter Capped, clamped with Saline x2 ports (Red CUROS Caps) Machine Disinfection Process: Exterior Machine Disinfection Rinseback Volume (mL): 300 mL Total Liters Processed (L/min): 63.5 L/min Dialyzer Clearance: Clotted Hemodialysis Intake (ml): 2000 ml Hemodialysis Output (ml): 2950 ml NET Removed (ml): 950 ml Tolerated Treatment: Fair (Lines and dialyser had to be changed due to clotting in venous chamber, and the treatment had to be ended early due to this also) Patient Response to Treatment: Stable, Primary RN at bedside at time of treatment end Physician Notified: No Charge: $ IP Hemodialysis Charge: Hemodialysis Provider Notification Handoff complete and report given to Primary RN at 6487. Primary RN (First Initial, Last Name, Title): Ottoniel Travis RN Education Person Educated: Patient Knowledge Base: Substantial Barriers to Learning?: None Preferred method of Learning: Oral Topic(s): Emergency, Access Care, Signs and Symptoms of Infection, and Fluid Management Teaching Tools: Explanation Response to Education: Verbalized Understanding [1] No Known Allergies [2] Patient Active Problem List Diagnosis Hypertensive emergency Gastrointestinal hemorrhage, unspecified gastrointestinal hemorrhage type Anemia Pulmonary edema, acute (HCC) Shortness of breath COVID-19 Edema of left lower extremity Sepsis, due to unspecified organism, unspecified whether acute organ dysfunction present (HCC) Seizures (HCC) ESRD (end stage renal disease) (HCC) Dialysis patient (HCC) Wound dehiscence End stage congestive heart failure (HCC) [3] 03:30 Pt refusing blood work. BRAYDEN meadows made aware. documented in this encounter [facility] 11-15-2024 Miscellaneous Notes Patient Choice Patient Name: APOORVA GONZALEZ Date of : 1950 All Providers Sent Referral Name: [facility] Phone: [phone] Address: [address] [place] [address] MAR & Discharge med list transmitted to [facility] per TCC request. [facility] received discharge order. SHERIE completed and bedside nurse aware. [facility] spoke with the patient to make her aware and she agreed to pay any applicable cost for cot transport after TCC explained she could call her insurance to request cost information. Set up cot transport for 12:30 pm with [facility] [employer] ([phone]). The patient asked that [facility] call her brother/REJI Hess to make him aware. [facility] spoke with Stephanie via phone and provided verbal explanation of CUENCA. He denied any need to appeal discharge. [facility] set up transport via cot at 12:30 pm, making the patient, Ednae, bedside nurse, unit aid and SNF aware of transport time. TCC tasked BODY CORPORATE MANAGER to send DC paperwork to SNF. BOX ESTIMATOR spoke with Deshawn [phone] son regarding [employer] benefits during a skilled stay in a facility. How insurance dictates skilled time in a SNF. Educated on medicaid, rules, and Patient liability in a SNF. BOX ESTIMATOR assisted with medicaid application and faxed to [email or web address]. Son to sign paperwork and send back to BOX ESTIMATOR to file with Gauri Hensley. hand worker to follow. Referral placed to [facility] via [facility] per TCC request. Await review and response regarding ability to accept. TCC notified. Care Management Progress Note Short Medical why still here: Awaiting insurance authorization for return to SNF. Planned Discharge Disposition: [facility] Facility Barriers/Today we still Wait: Facility pre-cert Length of Stay (Days): 1 GMLOS: No GMLOS Documented - CM referral acknowledged. - [facility] received update that discharge order had been written. - TCC spoke with the patient to introduce self/role and the patient stated she did want to return to the facility. - TCC tasked BODY CORPORATE MANAGER to initiate referral in [facility]. - TCC spoke with admission staff May at [facility] who verified a new auth will be needed for the patient to return to the facility. - [facility] tasked [facility] to initiate [employer] authorization and updated attending that authorization will be need to be approved before the patient can be discharge back to her SNF. Attending acknowledged the update. _ TCC will continue to follow. Patient is from a SNF. 30 day readmission is not warranted. documented in this encounter [facility] 11-15-2024 Progress note Formatting of t his note might be different from the original. Patient Choice Patient Name: APOORVA GONZALEZ Date of : 1950 All Providers Sent Referral Name: [facility] Phone: [phone] Address: [address] [place] [address] [facility] 11-15-2024 Progress note Formatting of t his note might be different from the original. MAR & Discharge med list transmitted to [facility] via [facility] per TCC request. [facility] 11-15-2024 Progress note Formatting of t his note might be different from the original. [facility] received discharge order. SHERIE completed and bedside nurse aware. [facility] spoke with the patient to make her aware and she agreed to pay any applicable cost for cot transport after TCC explained she could call her insurance to request cost information. Set up cot transport for 12:30 pm with [facility] [employer] ([phone]). The patient asked that [facility] call her brother/DMPASTRID Hess to make him aware. [facility] spoke with Stephanie via phone and provided verbal explanation of CUENCA. He denied any need to appeal discharge. TCC set up transport via cot at 12:30 pm, making the patient, Clarance, bedside nurse, unit aid and SNF aware of transport time. TCC tasked BODY CORPORATE MANAGER to send DC paperwork to SNF. [facility] 11-15-2024 History of Present illness Narrative Nephrology Progress Note Following for ESRD Tolereated HD yesterday clotted venous chamber again will discuss low dose heparin at start of treatment now that bleeding is under control Current Inpatient Medications: Reviewed on JUN. Vitals: BP 132/67 (BP Location: Right arm, Patient Position: Sitting) Pulse 65 Temp 36.6 C (97.8 F) (Temporal) Resp 16 Ht 1.626 m (5' 4) Wt 49.6 kg (109 lb 4.8 oz) SpO2 100% BMI 18.76 kg/m BLOOD PRESSURE RANGE: Systolic (24hrs), Av , Min:119 , Max:175 ; Diastolic (24hrs), Av, Min:58, Max:96 24HR INTAKE/OUTPUT: Intake/Output Summary (Last 24 hours) at 11/15/2024 1047 Last data filed at 11/15/2024 0930 Gross per 24 hour Intake 350 ml Output -- Net 350 ml Physical exam: Constitutional: nad Skin: no rash, turgor wnl Heent: eomi, mmm Neck: no bruits or jvd noted Cardiovascular: Normal S1, S2 without m/r/g Respiratory: CTAB without w/r/r Abdomen: +bs, soft, nt, nd Ext: no lower extremity edema Data: Labs: Recent Labs 11/12/24 1450 11/13/24 0001 11/13/24 1312 WBC 10.9* 10.1 -- HGB 9.3* 7.1* 7.2* HCT 29.0* 22.7* 23.2* MCV 91.2 91.9 -- PLT 407 495* -- Recent Labs 11/12/24 1525 08/11/25 0001 NA 140 137 K 4.0 4.0 CL 104 103 CO2 24 23 GLUCOSE 78* 62* CALCIUM 8.1* 7.6* BUN 15 16 CREATININE 3.37* 3.51* Assessment and Plan: 74 y.o. female who is admitted to hospital for vascular evaluation of former avg site excessive bleeding. Nephrology consulted in view of ESRD . ESRD on TTS HD TDC CDI Seen on HD Volume. Traced edema +LUE Bp stable UF as tolerated with HD Acute on chronic Anemia in CKD. Av graft hematoma HODAN as OP follow H&H Transfuse forhgb <7.0 blood TF per primary team CKDMBD. Not on binders at this time check phos in AM phos gaol 3.5-5.5 Plan Continue TTS HD Tolerated HD yesterday UF limited due to clotting, will discuss low dose heparin at start of tx Pt stable for discharge from renal standpoint when ready Thank you for allowing me to care for pt. Feel free to reach out with any questions or concerns Karis Stone APRN AGENCY TRAINER A-G MILLINERY DEPARTMENT MANAGER [facility] [place] [phone] I reviewed with Karis Stone APRN-TAMIR the saavedra portions of the medical history and the findings on physical examination. I discussed the patient s saavedra portions of the diagnosis and concur with the treatment plan as documented in her note. Please message me through [employer] with any questions or concerns. Sean Castaneda MD Nutrition Assessment Type and Reason for Visit: Initial (ESRD - HD) Nutrition Recommendations/Plan: Patient currently ordered a Regular; Low Sodium (2 gm) diet. Per MNT protocol, will liberalize to Regular to encourage PO intake. Per MNT protocol, will initiate Magic Cup BID, and Nepro 1x/day. Please record % meal and oral nutrition supplement consumed in flow sheet for most accurate nutrient intake assessment. Recommend obtaining current weight. Will continue to monitor weight changes, labs, and overall nutrition status. RD will continue to follow up weekly. Malnutrition Assessment: Malnutrition Status: Insufficient data Context: Acute Illness Findings of the 6 clinical characteristics of malnutrition: Energy Intake: Mild decrease in energy intake (Comment) (Patient with variable PO intake throughout admission) Weight Loss: Unable to assess (Need CBW) Body Fat Loss: Unable to assess Muscle Mass Loss: Unable to assess Fluid Accumulation: Mild Extremities Nutrition Assessment: Patient with a PMHx of CKD, ESRD on HD (T//Wed), history of blood transfusion, HTN, and seizure disorder who presents as a direct transfer from [facility] due to complications of left upper extremity graft. Patient was recently admitted and discharged on 11/11. Since discharge, pt reports drainage of left upper extremity site. Pt had excision of left upper extremity graft on November 02, 2024. Seen by ID during that hospitalization and plan for course of Bactrim renally dosed through November 13. Pt had evacuation of a hematoma on November 05, 2024. On evaluation at [facility] ER, pt was noted to have a white count of 10.9 (down trended from 12.6 the day prior. Hemoglobin 9.3 (increased from 7.0 the day prior). The middle arm incision was reported per vascular to be left open intentionally to allow for drainage. Vascular recommended wet to dry dressing to middle upper arm incision. Wrap with kerlex and compression with rosey wrap. Patient was evaluated by PT with recommendation for return to SNF on discharge. Pt was seen by nephrology with plan to continue with --Wed HD treatments. Last HD 11/11 with 1000ml removed. Hgb in ED noted to be 7.1, repeat prior to discharge 7.2. Plan was for discharge back to [facility] 11/13/24 however pt requires new authorization from [facility] to return to the facility. Patient currently ordered a Low Na diet. Patient was receiving a liberalized diet with Vanilla Magic Cup BID, and Nepro 1x/day upon discharge (11/11). PO intake variable throughout admission (26-50, 51-75%). Patient currently disoriented. Receiving HD today. Weights per EMR -> 11/12/24 117# (estimated), 11/07 120# (bed), 11/03 121#, 10/27 113# (bed), 10/22 106#, 09/15 113#, 08/30 114#, 07/17 115#, 06/29 112#, 03/03/24; 112#. Estimated Daily Nutrient Needs: Energy Requirements Based On: Kcal/kg Weight Used for Energy Requirements: [place] Weight for Energy Calculation (kg): 55 kg Total Energy Requirements (kcals/day): 9440-0704 kcal/day (30-35) Weight Used for Protein Requirements: [place] Weight in Kg Used for Protein Requirements: 55 kg Estimated Total Protein (g/day): 55-66 g/day (1-1.2) Estimated Daily Total Fluid (ml/day): 1063-0035 ml/day Nutrition Related Findings: Arnol: 17. I&O: +50. Edema: Pitting LUE. Wounds: Pressure Injury (unstageable sacrum), surgical incision. Edentulous. ESRD -HD. Oriented/disoriented. Labs: Cr 3.51, eGFR 13.1, glucose 62, calcium 7.6. Meds: Renvela Wound Type: Surgical Incision, Pressure Injury, Unstageable Current Nutrition Therapies: Adult diet Regular; Low Sodium (2 gm) Current Oral Intake Average Meal Intake: 26-50% Average Supplements Intake: None Ordered Anthropometric Measures: Height: 162.6 cm (5' 4) Current Body Weight: 53.1 kg (117 lb) (11/12/24) Weight Source: Other (Comment) (Estimated) Admission Body Weight: 53.1 kg (117 lb) (11/12/24 Estimated) Usual Body Weight: (Per EMR--> 110# 08/09/23; 105.4# 03/03/24; 112# 06/09/24; 107.8# 08/26/24; 114.4# 10/06/24 bed scale, 11/07/24 120# bed scale) [place] Body Weight (lbs) (Calculated): 120 lbs [place] Body Weight (Kg) (Calculated): 55 kg % [place] Body Weight (Calculated): 97.5 % BMI (kg/m2) (Calculated): 20.1 Weight Adjustment For: No Adjustment BMI Categories: Underweight (BMI less than 22) age over 65 Nutrition Diagnosis: Increased nutrient needs related to renal dysfunction as evidenced by dialysis Nutrition Interventions: Nutrition Education/Counseling: No recommendation at this time Coordination of Nutrition Care: Continue to monitor while inpatient Goals: Goals: Meet at least 75% of estimated needs, by next RD assessment Nutrition Monitoring and Evaluation: Behavioral-Environmental Outcomes: None Identified Food/Nutrient Intake Outcomes: Food and Nutrient Intake, Supplement Intake Physical Signs/Symptoms Outcomes: Biochemical Data, Chewing or Swallowing, GI Status, Nausea or Vomiting, Skin, Weight, Nutrition Focused Physical Findings, Hemodynamic Status, Fluid Status or Edema, Meal Time Behavior Discharge Planning: Too soon to determine Rose Pizarro RD Contact: [phone] Nephrology Progress Note Following for ESRD Pt seen on HD clotted machine last treatment will use rinses q 30 min to aid Denies cP SOB NV or cramping Current Inpatient Medications: Reviewed on JUN. Vitals: BP 145/66 Pulse 52 Temp 36.7 C (98.1 F) (Temporal) Resp 17 Ht 1.626 m (5' 4) Wt 53.1 kg (117 lb) SpO2 100% BMI 20.08 kg/m BLOOD PRESSURE RANGE: Systolic (24hrs), Av , Min:128 , Max:163 ; Diastolic (24hrs), Av, Min:66, Max:98 24HR INTAKE/OUTPUT: Intake/Output Summary (Last 24 hours) at 11/14/2024 1256 Last data filed at 11/13/2024 2107 Gross per 24 hour Intake 50 ml Output -- Net 50 ml Physical exam: Constitutional: restless Skin: no rash, turgor wnl Heent: eomi, mmm Neck: no bruits or jvd noted Cardiovascular: Normal S1, S2 without m/r/g Respiratory: CTAB without w/r/r Abdomen: +bs, soft, nt, nd Ext: no lower extremity edema Data: Labs: Recent Labs 11/12/24 1450 11/13/24 0001 11/13/24 1312 WBC 10.9* 10.1 -- HGB 9.3* 7.1* 7.2* HCT 29.0* 22.7* 23.2* MCV 91.2 91.9 -- PLT 407 495* -- Recent Labs 11/12/24 1525 11/13/24 0001 NA 140 137 K 4.0 4.0 CL 104 103 CO2 24 23 GLUCOSE 78* 62* CALCIUM 8.1* 7.6* BUN 15 16 CREATININE 3.37* 3.51* Assessment and Plan: 74 y.o. female who is admitted to hospital for vascular evaluation of former avg site excessive bleeding. Nephrology consulted in view of ESRD . ESRD on TTS HD TDC CDI Seen on HD Volume. Traced edema +LUE Bp stable UF as tolerated with HD Acute on chronic Anemia in CKD. Av graft hematoma HODAN as OP follow H&H Transfuse forhgb <7.0 blood TF per primary team CKDMBD. Not on binders at this time check phos in AM phos gaol 3.5-5.5 Plan Continue TTS HD Seen on Hd today uses rinses to help with clotting Pt stable for discharge from renal standpoint when ready Thank you for allowing me to care for pt. Feel free to reach out with any questions or concerns Karis Stone APRN AGENCY TRAINER A-G [employer]ILLIN[employer] DEPARTMENT MANAGER [facility] [phone] Pt seen and examined independently by me. I reviewed with MAYANK Mensah the saavedra portions of the medical history and the findings on physical examination. I discussed the patient s saavedra portions of the diagnosis and concur with the treatment plan as documented in her note. Please message me through [employer]! with any questions or concerns. Sean Castaneda MD Hospitalist Progress Note 11/14/2024 Subjective: Admit Date: 11/12/2024 PCP: Roxie Spain Room#: 1C-134/1C-134 A BRIEF HOSPITAL COURSE: Apoorva is a 74 y.o. female with past medical history of CKD, hemodialysis (/), history of blood transfusion, Hypertension, and seizure disorder who presents from [facility] with chief complaint of left upper extremity graft site complication with bloody drainage. She presents as a direct transfer from [facility] due to complications of left upper extremity graft. She was recently admitted and discharged on 11/11 in the afternoon. She notes that since being home had drainage of left upper extremity site. She had excision of left upper extremity graft on November 02, 2024. Seen by infectious disease during that hospitalization and plan for course of Bactrim renally dosed through November 13. She had evacuation of a hematoma on November 05, 2024. On evaluation at [facility] ER she was noted to have a white count of 10.9 (down trended from 12.6 the day prior. Hemoglobin 9.3 (increased from 7.0 the day prior). BMP grossly unremarkable for ESRD patient. ED physician at [facility] discussed with vascular surgery and plan for admit with vascular surgery consult. Case was discussed with [place] emergency room physician and will plan to admit for further evaluation and management. Pt was seen by Vascular surgery no signs of wound dehiscence. The middle arm incision was reported per vascular to be left open intentionally to allow for drainage. Vascular recommended wet to dry dressing to middle upper arm incision. Wrap with kerlex and compression with rosey wrap. She was evaluated by PT with recommendation for return to SNF on discharge. She was seen by nephrology with plan to continue with T-TH-Sat HD treatments. Hgb in ED noted to be 7.1, repeat prior to discharge 7.2. Plan was for discharge back to [facility] today 11/13/24 however pt requires new authorization from [facility] to return to the facility. Interval History: Pt seen and evaluated sitting in bed, NAD. Dressing to LUE C/D/I, sensation intact, pulses palpable. Plan for HD treatment today. Auth pending for [facility]. Pt noted to have refused AM labs. No overnight issues. Case and plan discussed with patient and bedside nurse. All questions answered. Adult diet Regular; Low Sodium (2 gm) 24HR INTAKE/OUTPUT: Intake/Output Summary (Last 24 hours) at 11/14/2024 0855 Last data filed at 11/13/2024 2107 Gross per 24 hour Intake 50 ml Output -- Net 50 ml Past Medical History: Medical History[1] LABS: CBC: Recent Labs 11/12/24 1450 11/13/24 0001 11/13/24 1312 WBC 10.9* 10.1 -- RBC 3.18* 2.47* -- HGB 9.3* 7.1* 7.2* HCT 29.0* 22.7* 23.2* MCV 91.2 91.9 -- RDW 17.0* 17.0* -- PLT 407 495* -- BMP: Recent Labs 11/12/24 1525 11/13/24 0001 NA 140 137 K 4.0 4.0 CL 104 103 CO2 24 23 BUN 15 16 CREATININE 3.37* 3.51* GLUCOSE 78* 62* CALCIUM 8.1* 7.6* ANIONGAP 12 11 LIVER PROFILE:No results for input(s): AST, ALT, BILITOT, ALKPHOS, PROT in the last 72 hours. No lab exists for component: LABALBU PT/INR: No results for input(s): PROTIME, INR in the last 72 hours. CARDIAC ENZYMES: No results for input(s): TROPONINI in the last 72 hours. Procalcitonin: No results found for: PROCAL COVID-19 PCR: No results for input(s): COVID19 in the last 72 hours. Objective: Vitals: BP 130/72 (BP Location: Right arm, Patient Position: Sitting) Pulse 58 Temp 36.8 C (98.3 F) (Temporal) Resp 17 Ht 5' 4 (1.626 m) Wt 117 lb (53.1 kg) SpO2 98% BMI 20.08 kg/m Pulse Ox: SpO2 Av.8 % Min: 95 % Max: 100 % Supplemental O2: Physical Exam Constitutional: General: She is not in acute distress. Cardiovascular: Rate and Rhythm: Regular rhythm. Bradycardia present. Pulmonary: Effort: Pulmonary effort is normal. No respiratory distress. Breath sounds: Normal breath sounds. Abdominal: General: Bowel sounds are normal. Palpations: Abdomen is soft. Musculoskeletal: Comments: LUE dressing C/D/I Sensation intact Pulses palpable Neurological: Mental Status: She is alert. Mental status is at baseline. Medications: Scheduled PRN Scheduled Meds[2] PRN Meds[3] Continuous Continuous Meds[4] Assessment Data: NA (LOW: 2x CAT1 or independent historian MOD: 3x CAT1 or 1x CAT3 EXTENSIVE: 3x CAT1 and 1x CAT3) Acute, acute on chronic, unstable/uncontrolled chronic problems/diagnoses: Complications of left upper extremity graft Leukocytosis - resolved Acute blood loss anemia - stable Stable chronic problems affecting care, new non-acute diagnoses: ESRD on hemodialysis - nephrology following Hx of recent covid infection Hx of infected hematoma status post I&D Seizure History- cont keppra Hx of recent c dif infection Hx of recent Enterobacter cloacae/ Kleb pneumo/ Kleb oxytoca/ VR-Enterococcus casseliflavus Hypertension- continue amlodipine Plan As a result of the above findings & factors, the following mgmt was pursued: -Vascular on consult -> Continue wet to dry dressings to middle incision of left arm (proximal and distal incisions are closed with corie and nylons, middle incision intentionally left open). Continue to wrap entire arm with Kerlix and ROSEY. All dressings to be changed BID. - Vascular follow up scheduled for 11/22/2024 @ 09:15 AM - continue amlodipine, rafy seaman - nephrology on consult for HD mgt - plan for tx today - Discharge back to [facility] pending auth - am labs, replace lytes prn - PT/OT/CM/SW - delirium precautions: increase activity and limit nighttime disturbances - DVT prophylaxis: SCDs and encourage ambulation Advance Directive: DNR-CCA Anticipated Discharge - Date - 11/14/24 - Location - Skilled Facility - Pending the following - Authorization Total time spent (which include face to face and non face to face encounters) : 35 minutes Extended Emergency Contact Information Primary Emergency Contact: Deshawn Crystal Mobile Relation: Brother Technical Coordinator needed? No Secondary Emergency Contact: Edward Ruggiero Mobile Relation: Significant Other Preferred language: Cambodian Technical Coordinator needed? No Kailyn Juárez APRN - AGENCY TRAINER Division of Hospitalist Medicine [facility] [1] Past Medical History: Diagnosis Date Chronic kidney disease (CKD) Hemodialysis patient ([facility]) ([facility]) Wednesday, , Wednesday History of blood transfusion 02/27/2022 Hypertension Seizure ([facility]) Developed seizure-like activity on 02/24 during hospital admission [2] acetaminophen, 1,000 mg, Oral, q8h amLODIPine, 5 mg, Oral, Daily collagenase, , Topical, Daily levETIRAcetam, 500 mg, Oral, Daily melatonin, 5 mg, Oral, Nightly sevelamer carbonate, 800 mg, Oral, TID WC silver nitrate, , Topical, Once Xeroform Petrolat Gauze 5x9, 1 each, Topical, Daily [3] PRN medications: collagenase, naloxone, ondansetron ODT OR ondansetron, oxyCODONE, polyethylene glycol (PEG) 3350 [4] Hospitalist Progress Note 11/13/2024 Subjective: Admit Date: 11/12/2024 PCP: Roxie Spain Room#: 1C-134/1C-134 A BRIEF HOSPITAL COURSE: Apoorva is a 74 y.o. female with past medical history of CKD, hemodialysis (T//Wed), history of blood transfusion, Hypertension, and seizure disorder who presents from [facility] with chief complaint of left upper extremity graft site complication with bloody drainage. She presents as a direct transfer from [facility] due to complications of left upper extremity graft. She was recently admitted and discharged on 11/11 in the afternoon. She notes that since being home had drainage of left upper extremity site. She had excision of left upper extremity graft on November 02, 2024. Seen by infectious disease during that hospitalization and plan for course of Bactrim renally dosed through November 13. She had evacuation of a hematoma on November 05, 2024. On evaluation at [facility] ER she was noted to have a white count of 10.9 (down trended from 12.6 the day prior. Hemoglobin 9.3 (increased from 7.0 the day prior). BMP grossly unremarkable for ESRD patient. ED physician at [facility] discussed with vascular surgery and plan for admit with vascular surgery consult. Case was discussed with [place] emergency room physician and will plan to admit for further evaluation and management. Pt was seen by Vascular surgery no signs of wound dehiscence. The middle arm incision was reported per vascular to be left open intentionally to allow for drainage. Vascular recommended wet to dry dressing to middle upper arm incision. Wrap with kerlex and compression with rosey wrap. She was evaluated by PT with recommendation for return to SNF on discharge. She was seen by nephrology with plan to continue with T-TH-Sat HD treatments. Hgb in ED noted to be 7.1, repeat prior to discharge 7.2. Plan was for discharge back to [facility] today 11/13/24 however pt requires new authorization from [facility] to return to the facility. Interval History: Pt seen and evaluated sitting in recliner, NAD. Pleasant and cooperative. Discussed vascular recommendations. Discharge back to facility pending auth. Pt in agreement with plan. No overnight issues. Case and plan discussed with patient and bedside nurse. All questions answered. Adult diet Regular; Low Sodium (2 gm) 24HR INTAKE/OUTPUT: No intake or output data in the 24 hours ending 11/13/24 1708 Past Medical History: Medical History[1] LABS: CBC: Recent Labs 11/11/24 0539 11/12/24 1450 11/13/24 0001 11/13/24 1312 WBC 12.6* 10.9* 10.1 -- RBC 2.39* 3.18* 2.47* -- HGB 7.0* 9.3* 7.1* 7.2* HCT 21.8* 29.0* 22.7* 23.2* MCV 91.2 91.2 91.9 -- RDW 17.1* 17.0* 17.0* -- PLT 480* 407 495* -- BMP: Recent Labs 11/11/24 0539 11/12/24 1525 11/13/24 0001 NA 138 140 137 K 4.5 4.0 4.0 CL 105 104 103 CO2 24 24 23 BUN 26* 15 16 CREATININE 4.23* 3.37* 3.51* GLUCOSE 67* 78* 62* CALCIUM 7.3* 8.1* 7.6* ANIONGAP 9 12 11 LIVER PROFILE:No results for input(s): AST, ALT, BILITOT, ALKPHOS, PROT in the last 72 hours. No lab exists for component: LABALBU PT/INR: No results for input(s): PROTIME, INR in the last 72 hours. CARDIAC ENZYMES: No results for input(s): TROPONINI in the last 72 hours. Procalcitonin: No results found for: PROCAL COVID-19 PCR: No results for input(s): COVID19 in the last 72 hours. Objective: Vitals: BP 126/78 (BP Location: Right arm, Patient Position: Sitting) Pulse 93 Temp 36.6 C (97.8 F) (Temporal) Resp 17 Ht 5' 4 (1.626 m) Wt 117 lb (53.1 kg) SpO2 100% BMI 20.08 kg/m Pulse Ox: SpO2 Av % Min: 96 % Max: 100 % Supplemental O2: Physical Exam Constitutional: General: She is not in acute distress. Cardiovascular: Rate and Rhythm: Normal rate and regular rhythm. Pulmonary: Effort: Pulmonary effort is normal. Breath sounds: Normal breath sounds. Abdominal: General: Bowel sounds are normal. Palpations: Abdomen is soft. Skin: General: Skin is warm. Comments: Dressing to LUE C/D/I Pulses palpable, sensation intact to LUE Neurological: Mental Status: She is alert. Mental status is at baseline. Psychiatric: Mood and Affect: Mood normal. Behavior: Behavior normal. Medications: Scheduled PRN Scheduled Meds[2] PRN Meds[3] Continuous Continuous Meds[4] Assessment Data: (CAT1) Reviewed 1 notes from different specialty or health system (each=1). (CAT1) Reviewed 2 labs/studies ordered by another provider not previously counted (each=1, panels count as 1). (LOW: 2x CAT1 or independent historian MOD: 3x CAT1 or 1x CAT3 EXTENSIVE: 3x CAT1 and 1x CAT3) Acute, acute on chronic, unstable/uncontrolled chronic problems/diagnoses: Complications of left upper extremity graft Leukocytosis - resolved Acute blood loss anemia - stable Stable chronic problems affecting care, new non-acute diagnoses: ESRD on hemodialysis-nephrology following Hx of recent covid infection Hx of infected hematoma status post I&D Seizure History-cont keppra Hx of recent c dif infection Hx of recent Enterobacter cloacae/ Kleb pneumo/ Kleb oxytoca/ VR-Enterococcus casseliflavus Septic shock-resolved Hypertension-continue amlodipine Plan As a result of the above findings & factors, the following mgmt was pursued: - Vascular on consult -> Continue wet to dry dressings to middle incision of left arm (proximal and distal incisions are closed with corie and nylons, middle incision intentionally left open). Continue to wrap entire arm with Kerlix and ROSEY. All dressings to be changed BID. - Vascular follow up scheduled for 11/22/2024 @ 09:15 AM - continue amlodipine, keppra, renvela - nephrology on consult for HD mgt - am labs, replace lytes prn - PT/OT/CM/SW - delirium precautions: increase activity and limit nighttime disturbances - DVT prophylaxis: SCDs and encourage ambulation Advance Directive: DNR-CCA Anticipated Discharge - Date - 11/14/24 - Location - Skilled Facility - Pending the following - Authorization Total time spent (which include face to face and non face to face encounters) : 35 minutes Extended Emergency Contact Information Primary Emergency Contact: Deshawn Crystal Mobile Relation: Brother Technical Coordinator needed? No Secondary Emergency Contact: Edward Ruggiero Mobile Relation: Significant Other Preferred language: Cambodian Technical Coordinator needed? No PARK Madison CNP Division of Hospitalist Medicine [facility] [1] Past Medical History: Diagnosis Date Chronic kidney disease (CKD) Hemodialysis patient (CMS/HCC) (HCC) Wednesday, , Wednesday History of blood transfusion 02/27/2022 Hypertension Seizure (HCC) Developed seizure-like activity on 02/24 during hospital admission [2] acetaminophen, 1,000 mg, Oral, q8h amLODIPine, 5 mg, Oral, Daily collagenase, , Topical, Daily levETIRAcetam, 500 mg, Oral, Daily melatonin, 5 mg, Oral, Nightly sevelamer carbonate, 800 mg, Oral, TID WC silver nitrate, , Topical, Once Xeroform Petrolat Gauze 5x9, 1 each, Topical, Daily [3] PRN medications: collagenase, naloxone, ondansetron ODT OR ondansetron, oxyCODONE, polyethylene glycol (PEG) 3350 [4] Images from the original note were not included. PHYSICAL THERAPY Formerly [facility] Initial Evaluation Name/MRN: Apoorva Gonzalez ([id number]) Evaluation Date: 11/13/2024 Date of : 1950 Admission Date: 11/12/2024 12:51 PM Age: 74 y.o. Room/Bed: 1C-134/1C-134 A Discharge Recommendation: [facility] Equipment Needed: No Assessment IMPRESSION: Pt admitted for bleeding at L UE AV graft site. Has had multiple admissions for various illnesses over the past few months with discharge to SNF. She is currently limited d/t global debility with decreased standing balance. Min-Mod assist for bed mobility, transfers and taking a few steps to the recliner with the FWW. Very unsteady in standing with light headedness. Currently recommend disch back to SNF for continued physical therapy. Admitting Diagnosis: Wound dehiscence. Prognosis: fair Performance Deficits /Impairments: Decreased Functional Mobility, Decreased ADL status, Decreased Endurance, Decreased Balance, and Decreased High Level IADLs Decision Making: Medium Complexity Subjective Pt in the bed and agreeable to PT after finishing her breakfast. RN in to do wound care while pt was in standing with PT. Pain: Pt denies any current pain. Past Medical History: Medical History[1] Past Surgical History: Surgical History[2] Admission Diagnosis: Patient Active Problem List Diagnosis Date Noted Wound dehiscence 11/12/2024 Seizures ([facility]) 11/02/2024 ESRD (end stage renal disease) ([facility]) 11/02/2024 Dialysis patient ([facility]) 11/02/2024 Sepsis, due to unspecified organism, unspecified whether acute organ dysfunction present ([facility]) 10/22/2024 Edema of left lower extremity 10/05/2024 COVID-19 09/14/2024 Shortness of breath 03/02/2024 Pulmonary edema, acute ([facility]) 02/19/2024 Gastrointestinal hemorrhage, unspecified gastrointestinal hemorrhage type 01/19/2024 Hypertensive emergency 02/21/2022 Anemia 01/19/2024 Medical Precautions: Contact Proper PPE donned/doffed in accordance with facility standards. Fall Risk: [place] Fall Risk Score: 45 (High Risk) Precautions/Restrictions: Fall Precautions RN declined chair alarm Family/Caregiver Present: none Overall Cognitive Status: Exceptions - Initiation: requires cues for some - Sequencing: requires cues for some - Pt having a hard time recalling time line for various illnesses and when she last worked with therapy on OOB mobility Overall Orientation Status: Oriented to Place, Oriented to Person, and Disoriented to Situation Vision: Not Assessed Hearing: normal Social/Functional History Patient admitted from [facility]. Assistive Equipment: front wheeled walker Prior Level of Function Prior Level of ADL Function: Required Assist Prior Level of Mobility: Required Assist; Device: Front wheeled walker Prior Level of Transfers: Required Assist Objective Lower Extremity Assessment AROM: WFL - limited slightly d/t decreased command following at times. PROM: Not assessed this session Strength: Exceptions: 4-/5 knee extension and ankle DF Sensation: Not assessed this session Balance: Balance During Session: Posture: fair Sitting - Static: SBA Sitting - Dynamic: Mod Assist- retro leaning when doing LE ROM at EOB Standing - Static: Mod Assist- retro leaning all throughout standing with the FWW Standing - Dynamic: Max Assist Bed Mobility: Supine to sit: Min Assist Scooting: Min Assist Transfers Sit to stand: Mod Assist Stand to sit: Mod Assist Ambulation Ambulation 1 Assistive device(s) used: Front wheeled walker Assist level: Mod Assist Distance (ft): 3 ft bed>chair Quality of gait: instability through all phases, retro leaning all throughout standing and stepping to the chair. Light headed. Pt declined further activity. Exercises Hip Flexion: seated alternating marhces x10 BLEs Knee Long Arc Quad: AROM x8 BLEs Ankle Pumps: x15 BLEs Outcome Measures AM-PAC How much HELP from another person do you currently need Turning from your back to your side while in a flat bed without using bedrails?: A Little Moving from lying on your back to sitting on the side of a flat bed without using bedrails?: A Little Moving to and from a bed to a chair (including a wheelchair)?: A Lot Standing up from a chair using your arms (wheelchair or bedside chair)?: A Lot Walking in a hospital room?: A Lot Stair climbing assessed?: No AM-PAC Inpatient Mobility Raw Score (No Stairs) : 12 JH-HLM -HL Score: Static standing (1 or more minutes) Plan Pt would benefit from skilled acute PT services to address Strengthening, ROM, Gait Training, Balance Training, Self-Care/ADL Training, Functional Mobility Training, Endurance Training, Patient/Caregiver Training, and Positioning. Frequency: 2x/weekfor 2 weeks Barriers: Pain, Impaired balance, Lower extremity weakness, Decreased endurance, Cognitive deficit, and Medical complications Safety/Education Safety Safety Devices in place: call light within reach, left in chair, gait belt, patient at risk for falls, nurse notified, and RN declined chair alarm Restraints: No Education Education Given To: patient Education Provided: PT Role, PT Goals, Gait Training, Plan of Care, Home Exercise Program, Precautions, Discharge Recommendations, and Benefits of Increasing Activity Education Method: Verbal and Demonstration Barriers to Learning: None Education Outcome: Verbalized Understanding Goals Patient Stated Goal: To get stronger and try walking Encounter Problems Encounter Problems (Active) Balance Patient will maintain dynamic standing balance for 10 minutes with SBA in order to demonstrate decreased risk of falling. Start: 11/13/24 Expected End: 11/27/24 Mobility Patient will ambulate 50 feet with min assist and least restrictive device in order to improve safety and independence with mobility. Start: 11/13/24 Expected End: 11/27/24 Transfers Patient will perform bed mobility with SBA in order to improve independence and prepare for out of bed mobility. Start: 11/13/24 Expected End: 11/27/24 Patient will complete functional transfer with least restrictive device with SBA in order to prepare for ambulation. Start: 11/13/24 Expected End: 11/27/24 Therapy Time Individual Co-Treatment Co-Evaluation Time In 922 Time Out 0940 Minutes 17 Isatu Quinonez PT Patient's Physical Therapy Plan of Care supervision is transferred to a [facility] Therapy Services Physical Therapist. Goals and/or treatment plan was established in collaboration with patient/family/other representatives. [1] Past Medical History: Diagnosis Date Chronic kidney disease (CKD) Hemodialysis patient (CMS/HCC) (HCC) Wednesday, , Wednesday History of blood transfusion 02/27/2022 Hypertension Seizure (HCC) Developed seizure-like activity on 02/24 during hospital admission [2] Past Surgical History: Procedure Laterality Date AV FISTULA PLACEMENT Left 08/07/2022 COLONOSCOPY N/A 01/25/2024 Performed by Chrissy Gilman MD at [facility] ENDOSCOPY IR CVC TUNNELED DIALYSIS CATHETER PLACEMENT 02/27/2022 IR CVC TUNNELED CATHETER PLACEMENT 02/27/2022 Candis Andrade MD [facility] SPECIAL PROCEDURES IR EMBOLIZATION 01/24/2024 IR EMBOLIZATION 01/24/2024 Jovan Glynn MD [facility] SPECIAL PROCEDURES Images from the original note were not included. Department of Vascular Surgery PATIENT NAME: Apoorva Gonzalez : 1950 ATTENDING PHYSICIAN: Edson Velazquez MD ADMIT DATE: 11/12/2024 TODAY'S DATE: 11/13/2024 SUBJECTIVE NAEO. Patient was discharged on 11/11 and readmitted 11/12 w/ concern for LUE AVG site bleeding. No new complaints this am, from when last seen 11/12. Reports her pain remains controlled and improved. Good sensation and movement of LUE. Denies f/c, N/v/d, CP, SOB. OBJECTIVE VITALS: BP 142/82 (Patient Position: Lying) Pulse 83 Temp 36.9 C (98.4 F) (Temporal) Resp 18 Ht 5' 4 (1.626 m) Wt 117 lb (53.1 kg) SpO2 96% BMI 20.08 kg/m PHYSICAL EXAM: Gen: NAD, A&Ox3, however intermittently confused, pain well controlled Heart: RRR, well perfused Lungs: symmetric chest rise, normal work of breathing, breath sounds b/l Abd: soft, non tender, non distended. Non rigid. Ext: no c/c/e no gross deformities Skin: warm, well perfused, no obvious rashes, cellulitis or gross discoloration Vascular: LUE: Overall unremarkable, Radial 2+, good sensation and movement, 3 incision sites dressed w/ Kerlix this am. Scant SS strikethrough to middle incision site. Dressing removed, small blood clot removed w/ ease from middle site, intentionally left open, no interval change amount open from 11/11, no active bleeding. Superior and inferior incision sites otherwise closed w/ no discharge noted. No new hematoma, scattered edema, w/ continued interval improvement. INTAKE/OUTPUT: @IODETAILS@ No intake/output data recorded. No intake/output data recorded. Data Results from last 7 days Lab Units 11/13/24 0001 11/12/24 1450 11/11/24 0539 WBC AUTO 10*3/uL 10.1 10.9* 12.6* HEMOGLOBIN g/dL 7.1* 9.3* 7.0* HEMATOCRIT % 22.7* 29.0* 21.8* PLATELETS 10*3/uL 495* 407 480* Results from last 7 days Lab Units 11/13/24 0001 11/12/24 1525 11/11/24 0539 SODIUM mmol/L 137 140 138 POTASSIUM mmol/L 4.0 4.0 4.5 CHLORIDE mmol/L 103 104 105 CO2 mmol/L 23 24 24 BUN mg/dL 16 15 26* CREATININE mg/dL 3.51* 3.37* 4.23* GLUCOSE mg/dL 62* 78* 67* CALCIUM mg/dL 7.6* 8.1* 7.3* No lab exists for component: LABALBU LIPASE Date Value Ref Range Status 09/14/2024 10 <55 U/L Final 09/14/2024 11 <55 U/L Final Current Inpatient Medications Scheduled Meds[1] ASSESSMENT AND PLAN 74 y.o. female w/ LUE AV graft site with concern for bleeding - No plans for operative vascular intervention - LUE middle incision site remains w/ scant SS output, no active bleeding, intentionally left open - Site was packed with gauze and wrapped with Kerlix and Rosey wrap - Rest of management per medicine - WDW Dr. Fernandez this am Chris Wills MD PGY-1, Urology Pager# [phone] 11/13/2024 7:31 AM Addendum 9:04 AM Plan for: -Continue wet to dry dressings to middle incision of left arm (proximal and distal incisions are closed with corie and nylons, middle incision intentionally left open). Continue to wrap entire arm with Kerlix and ROSEY. All dressings to be changed BID. -Follow up in office; office will call to schedule -Ok for return to facility from Vascular surgery perspective. Vascular surgery will sign off, please do not hesitate to reach out with further questions or concerns. -Discussed with Dr Jim Rader MD PGY-4, General Surgery Pager# [phone] 11/13/2024 9:12 AM [1] acetaminophen, 1,000 mg, Oral, q8h amLODIPine, 5 mg, Oral, Daily collagenase, , Topical, Daily levETIRAcetam, 500 mg, Oral, Daily melatonin, 5 mg, Oral, Nightly sevelamer carbonate, 800 mg, Oral, TID WC silver nitrate, , Topical, Once sulfamethoxazole-trimethoprim, 1 tablet, Oral, Daily Cosigned by Raffy Fernandez MD at 11/13/2024 11:38 AM EDT Associated attestation - Raffy Fernandez MD - 11/13/2024 11:38 AM EDT I saw and evaluated the patient. I agree with the findings and plan of care as documented in the resident s note unless otherwise noted below. The patient does not have a wound dehiscence. The middle upper arm incision has been left open intentionally to allow for drainage. Left radial pulse is palpable. Other incisions remain intact with sutures in place. Swelling improved over previous evaluation in last admission. Recommend wet to dry dressing to middle upper arm incision. Wrap with kerlex and compression with rosey wrap. OK to discharge from vascular surgery standpoint. documented in this encounter [facility] 11-15-2024 Nurse Note 03:50 Pt refusing daily lab work, FREDI Decker notified. NO new orders [facility] 11-14-2024 Nurse Note Patient Name: Apoorva Gonzalez Patient : 1950 Acct: [id number] Date of Admission: 11/12/2024 Room/Bed: [facility] A Code Status: DNR-CCA Allergies: Allergies[1] Diagnosis: Problem List[2] Treatment: Hemodialysis 1:1 Priority: Routine Location: Bedside Diabetic: No NPO: No Isolation Precautions: Contact Consent for Treatment Verified: Yes Blood Consent Verified: Not Applicable ICEBOAT: Identify, Consent, Equipment, HepB Status, Orders Complete, Access Verified, Timeliness Second Clinician Verifying: Ottoniel Travis Time out performed prior to access at 1230. Report Received from Primary RN at 0847. Primary RN (First Initial, Last Name, Title): Ottoniel Travis RN Incapacitated Nurse Education Completed: Yes HBsAg ONLY: Date Drawn: January 22, 2024 Results: Negative HBsAb: Date Drawn: January 22, 2024 Results: Immune >10 Order Dialyzer: Nipro Na+ Modeling: Not Applicable Dialysate Temperature (C): 36 Blood Flow Rate (BFR): 400 Dialysate Flow Rate (DFR): 600 Access to be Utilized Access: Tunneled Catheter Location: Internal Jugular Side: Left Needle gauge: Not Applicable + Bruit/Thrill: Not Applicable First Use X-ray Verified: Not Applicable OK to use line order: Yes Site Assessment: Signs and Symptoms of Infection/Inflammation: None If yes: Not Applicable Dressing: Dry and Intact Site Prep: Medical Aseptic Technique Dressing Changed this Treatment: Yes If yes, by whom: Juli MARIE Date of Last Dressing Change: November 14, [address]?: Yes Red Alcohol Caps in place?: Yes Gauze Dressing?: No Non-Dialysis Use?: No Comment: Flows: Good and Patent If access problem, who was notified: Pre and Post-Assessment Patient Vitals for the past 8 hrs: Level of Consciousness Oriented X Heart Rhythm O2 Device Bilateral Breath Sounds Skin Color Skin Condition/Temp Abdomen Inspection Bowel Sounds (All Quadrants) LUE Edema RLE Edema LLE Edema Pre-Hemodialysis Comments Pain Interventions 11/14/24 1209 Alert (0) 2 Regular None (Room air) Diminished -- Warm;Dry Soft;Nondistended Active None None None Patient agreeable to treatment, but not oriented x3. Patient's POADeshawn, called to obtain consent for this admission. -- 11/14/24 1500 -- -- -- -- -- Ashen Warm;Dry Soft;Nondistended Active -- -- -- -- -- 11/14/24 1557 Alert (0) 2 Regular None (Room air) Diminished Ashen Warm;Dry Soft Active -- -- -- -- -- 11/14/24 1607 -- -- -- -- -- -- -- -- -- -- -- -- -- Medication (See MAR) Labs Lab Results Component Value Date/Time WBC 10.1 11/13/2024 0001 HGB 7.2 (L) 11/13/2024 1312 HGB 9.1 10/05/2024 1419 HCT 23.2 (L) 11/13/2024 1312 PLT 495 (H) 11/13/20242422 NA 137 11/13/20242422 K 4.0 11/13/20242422 CL 103 11/13/20242422 CO2 23 11/13/20242422 BUN 16 11/13/20242422 CREATININE 3.51 (H) 11/13/20242422 CALCIUM 7.6 (L) 11/13/20242422 PHOS 2.7 10/26/2024 0657 IV Drips and Rate/Dose Continuous Meds[3] Safety - Before each treatment: Dialysis Machine No.: [id number] RO Machine Number: [id number] Dialyzer Lot No.: [id number] Tubing Lot Number: [id number] All Connections Secure: Yes Venous Parameters Set: Yes Arterial Parameters Set: Yes NS Bag: Yes Saline Line Double Clamped: Yes Dialyzer: Nipro Prime Volume (mL): 200 mL RO Machine Number: [id number] RO Machine Log Sheet Completed: Yes Machine Alarm Self Test: Completed, Passed (The machine passed all tests at 1208) (11/14/24 1209) Air Foam Detector: Proper Function, Tested Extracorporeal Circuit Tested for Integrity: Yes Machine Conductivity: 13.8 Manual Conductivity: 13.6 Manual Ph: 7.2 Bleach Test (Neg): Yes Bath Temperature: 36 C (96.8 F) Conductivity Meter Serial #: [id number] Machine Functioning Alarm Free? Yes Dialysis Bath: K+ (Potassium): 2 Ca+ (Calcium): 2.5 Na+ (Sodium): 137 HCO3 (Bicarb): 33 Chlorine Testing - Before each treatment and every 4 hours: Time On: 1235 Time Off: 1547 Treatment Goal: 1L Weight Height: 162.6 cm (5' 4) (11/14/24 0625) Weight: 53.1 kg (117 lb) (11/12/24 1254) BMI (Calculated): 20.07 (11/12/24 1254) 1st check: less than 0.1 ppm at: 1208 2nd check: less than 0.1 ppm at: 1410 3rd check: Not Applicable (if greater than 0.1 ppm, then check every 30 minutes from secondary) Access Flows and Pressures Patient Vitals for the past 8 hrs: Blood Flow Rate (mL/min) Ultrafiltration Rate (ml/hr) Arterial Pressure (mmHg) Venous Pressure (mmHg) TMP DFR Access Visible Intra-Hemodialysis Comments 11/14/24 1235 200 mL/min 500 ml/hr -40 mmHg 30 mmHg 90 600 Yes Treament initiatiated. All lines secured, bed is in lowest and locked position, and call light is within the patient's reach 11/14/24 1238 400 mL/min 500 ml/hr -130 mmHg 100 mmHg 90 600 Yes BFR to 400, Patient resting 11/14/24 1245 400 mL/min 500 ml/hr -120 mmHg 100 mmHg 90 600 Yes Patient resting, UF Removed- 110 11/14/24 1300 400 mL/min 500 ml/hr -140 mmHg 100 mmHg 90 600 Yes Patient resting, UF Removed- 209 11/14/24 1315 400 mL/min 580 ml/hr -150 mmHg 120 mmHg 90 600 Yes 200mL flush performed for patency.UF goal appropriately adjusted. UF Removed-335 11/14/24 1330 400 mL/min 580 ml/hr -150 mmHg 230 mmHg -- 600 Yes Increase in venous pressure noted, 200mL rinse performed to verify patency. Clot noted in venous drip chamber. Blood given back to patient, and lines and dialyser changed 11/14/24 1341 200 mL/min 580 ml/hr -30 mmHg 20 mmHg 90 600 Yes Treatment resumed with new lines and dialyser. All lines secured and UF goal adjusted appropriately 11/14/24 1345 400 mL/min -- -160 mmHg 100 mmHg 90 600 -- BFR to 400. UF Removed-572 11/14/24 1400 400 mL/min 950 ml/hr -170 mmHg 100 mmHg 90 600 Yes 100 mL flush performed to verify patency. UF goal appropriately adjusted. Patient resting, UF removed- 717 11/14/24 1415 400 mL/min 1020 ml/hr -170 mmHg 130 mmHg 90 600 Yes 100mL flush performed to verify patency. UF Removed- 975 11/14/24 1430 400 mL/min 1090 ml/hr -170 mmHg 140 mmHg 90 600 Yes 100mL flush performed to varify patency. UF goal appropriately adjusted. UF Removed- 1220 11/14/24 1445 400 mL/min 1160 ml/hr -170 mmHg 230 mmHg 90 600 Yes 100mL flush performed for patency. UF Removed- 1479 11/14/24 1500 400 mL/min 1160 ml/hr -190 mmHg 250 mmHg 100 600 Yes 200mL flush performed due to increasing venous pressure. UF Removed- 18511/14/24 1515 400 mL/min 1160 ml/hr -190 mmHg 210 mmHg 100 600 Yes Patient resting. UF Removed- 207111/14/24 1530 400 mL/min 1160 ml/hr -180 mmHg 310 mmHg 90 600 Yes Physician at bedside, UF Removed- 242211/14/24 1547 0 mL/min 0 ml/hr -- -- -- -- Yes Treamet completed slightly early due to clotting in the venous chamber. Blood returned to patient per policy. UF Removed- 2950 Vital Signs Patient Vitals for the past 24 hrs: BP Temp Temp src Pulse Resp SpO2 Height 11/14/24 1557 (!) 175/82 36.2 C (97.2 F) -- 81 16 (!) 82 % -- 11/14/24 1547 159/75 -- -- 82 -- -- -- 11/14/24 1530 135/96 -- -- 84 -- -- -- 11/14/24 1515 160/79 -- -- 81 -- -- -- 11/14/24 1500 145/91 -- -- 78 -- -- -- 11/14/24 1445 150/72 -- -- 74 -- -- -- 11/14/24 1430 133/65 -- -- 69 -- -- -- 11/14/24 1415 119/79 -- -- 59 -- -- -- 11/14/24 1400 141/72 -- -- 56 -- -- -- 11/14/24 1345 153/64 -- -- 60 -- -- -- 11/14/24 1330 148/58 -- -- 83 -- -- -- 11/14/24 1315 119/65 -- -- 92 -- -- -- 11/14/24 1300 134/85 -- -- 61 -- -- -- 11/14/24 1245 145/66 -- -- 52 -- -- -- 11/14/24 1238 136/68 -- -- 59 -- -- -- 11/14/24 1235 156/72 -- -- 56 -- -- -- 11/14/24 1209 144/73 36.4 C (97.6 F) -- 59 18 96 % -- 11/14/24 1115 128/72 36.7 C (98.1 F) Temporal 62 17 100 % -- 11/14/24 0741 130/72 36.8 C (98.3 F) Temporal 58 17 98 % -- 11/14/24 0625 -- -- -- -- -- -- 1.626 m (5' 4) 11/14/24 0306 146/80 36.4 C (97.6 F) Temporal 70 16 95 % -- 11/13/24 2331 142/98 -- -- -- -- -- -- 11/13/24 2307 (!) 163/79 36.9 C (98.4 F) Temporal 81 18 97 % -- 11/13/24 1927 147/77 36.7 C (98 F) Temporal 86 16 99 % -- Post-Dialysis Arterial Catheter Locking Solution: Normal Saline- 2mL Venous Catheter Locking Solution: Normal Saline- 2.1mL Post-Treatment Procedures: Blood returned, Catheter Capped, clamped with Saline x2 ports (Red CUROS Caps) Machine Disinfection Process: Exterior Machine Disinfection Rinseback Volume (mL): 300 mL Total Liters Processed (L/min): 63.5 L/min Dialyzer Clearance: Clotted Hemodialysis Intake (ml): 2000 ml Hemodialysis Output (ml): 2950 ml NET Removed (ml): 950 ml Tolerated Treatment: Fair (Lines and dialyser had to be changed due to clotting in venous chamber, and the treatment had to be ended early due to this also) Patient Response to Treatment: Stable, Primary RN at bedside at time of treatment end Physician Notified: No Charge: $ IP Hemodialysis Charge: Hemodialysis Provider Notification Handoff complete and report given to Primary RN at 2221. Primary RN (First Initial, Last Name, Title): Ottoniel Travis RN Education Person Educated: Patient Knowledge Base: Substantial Barriers to Learning?: None Preferred method of Learning: Oral Topic(s): Emergency, Access Care, Signs and Symptoms of Infection, and Fluid Management Teaching Tools: Explanation Response to Education: Verbalized Understanding [1] No Known Allergies [2] Patient Active Problem List Diagnosis Hypertensive emergency Gastrointestinal hemorrhage, unspecified gastrointestinal hemorrhage type Anemia Pulmonary edema, acute (HCC) Shortness of breath COVID-19 Edema of left lower extremity Sepsis, due to unspecified organism, unspecified whether acute organ dysfunction present (HCC) Seizures (HCC) ESRD (end stage renal disease) (HCC) Dialysis patient (HCC) Wound dehiscence End stage congestive heart failure (HCC) [3] [facility] 11-14-2024 Consult note Associated Order (s): IP CONSULT TO PSYCHIATRY Images from the original note were not included. [facility] Medical [facility] Department of Psychiatry Nurse Practitioner Consult Note Please contact [facility] Listed in [facility] On-Call Finder Wed-Fri: From 1700 - 0800 and Weekends IDENTIFYING INFORMATION Name: Apoorva Gonzalez : 1950 TODAY'S DATE: 11/14/24 ADMISSION DATE: 11/12/2024 Reason for Psychiatric Consult: depression, hallucinations Requesting Physician: Dr. Castaneda Consulting Practitioner: MAYANK Mckenzie Hospital Day: 2 SUBJECTIVE: CHIEF COMPLAINT: CC: Chief Complaint Patient presents with Wound Check EMS from [place] for bleeding fistula in left upper arm. DC from [facility] to [place] previously. Principal Problem: Wound dehiscence History obtained from: Patient, Chart Review, and Staff HISTORY OF PRESENT ILLNESS: HPI: Apoorva Gonzalez is a 74 y.o., female who was hospitalized at [facility] for Wound dehiscence on 11/12/2024. PMH of hypertension, ESRD, seizure, hemodialysis (Wednesday, , Wednesday), PSH AV graft placement (Dr. 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 Pt sent to ED by facility due to increased bleeding at site and transferred to [facility] for vascular surgery eval. Psychiatry consulted for depression and hallucinations. Today, pt is seen receiving dialysis, pt is alert and oriented x 2, and is cooperative with interview. Recent hospitalization from 10/22-11/11/2024 at which time pt lacked capacity for medical decision making due to encephalopathy, discharged to SNF, returned to ED on 11/12/2024. Pt reports she has ups and downs but does not generally feel depressed. States hospitalizations have been difficult but has met a lot of nice and caring people. Pt denies any suicidal/homicidal ideation, intent or plan. No alec noted and no s/s of psychosis. Denies AVH and feels managing ok. Denies hx of psychiatric medications, OP services or hospitalizations. She notes strong erma in God and hopeful to get well. Pt does not feel she needs medications for depression or anxiety. Discussed with RN who reports pt noted seeing kittens in room this morning upon waking and that Dr. Castaneda mentioned pt seemed depressed today. REVIEW OF SYSTEMS: MEDICAL & PSYCHIATRIC REVIEW OF SYMPTOMS: All ROS was completed and was negative unless stated above Medications: Current Facility Administered Medications: Current Medications[1] Medications Prior to Admission: Current Outpatient Medications Medication Instructions acetaminophen (TYLENOL) 650 mg, Every 6 hours PRN amLODIPine (NORVASC) 5 mg, Oral, Daily atorvastatin (LIPITOR) 40 mg, Oral, Nightly B complex-vitamin C-folic acid 0.8 mg, Daily calcium acetate (Phoslo) 667 MG tablet 1 tablet, Oral, 3 times daily with meals cholecalciferol (VITAMIN D-3) 5,000 Units, Daily levETIRAcetam (KEPPRA) 500 mg, Oral, Daily magnesium hydroxide (Milk of Magnesia) 2400 MG/10ML suspension suspension 30 mL, Oral, Daily PRN melatonin 5 mg, Oral, Nightly oxyCODONE (ROXICODONE) 5 mg, Oral, Every 6 hours PRN polyethylene glycol (PEG) 3350 (MIRALAX) 17 g, Oral, Daily PRN sevelamer (RENAGEL) 800 mg, 3 times daily with meals sulfamethoxazole-trimethoprim (Bactrim DS) 800-160 MG tablet 1 tablet, Oral, Daily vitamin B-1 250 mg, Daily Allergies: Allergies[2] History: Past Medical and Psychiatric History: Medical History[3] Family Psychiatric and Medical History: Family History[4] PAST SURGICAL HISTORY Surgical History[5] Social History: [place] [facility] since last hospitalization, finds family to be good support system Social History[6] Social Drivers of Health Tobacco Use: Low Risk (11/12/2024) Patient History Smoking Tobacco Use: Never Smokeless Tobacco Use: Never Passive Exposure: Not on file Alcohol Use: Not At Risk (10/31/2024) AUDIT-C Frequency of Alcohol Consumption: Never Average Number of Drinks: Patient does not drink Frequency of Binge Drinking: Never Recent Concern: Alcohol Use - Alcohol Misuse (09/13/2024) AUDIT-C Frequency of Alcohol Consumption: 4 or more times a week Average Number of Drinks: 1 or 2 Frequency of Binge Drinking: Less than monthly Financial Resource Strain: Patient Unable To Answer (10/23/2024) Overall Financial Resource Strain (CARDIA) Difficulty of Paying Living Expenses: Patient unable to answer Food Insecurity: No Food Insecurity (10/31/2024) Hunger Vital Sign Worried About Running Out of Food in the Last Year: Never true Ran Out of Food in the Last Year: Never true Transportation Needs: No Transportation Needs (10/31/2024) PRAPARE - Transportation Lack of Transportation (Medical): No Lack of Transportation (Non-Medical): No Physical Activity: Not on file Stress: Not on file Social Connections: Not on file Intimate Partner Violence: Not At Risk (10/31/2024) Humiliation, Afraid, Rape, and Kick questionnaire Fear of Current or Ex-Partner: No Emotionally Abused: No Physically Abused: No Sexually Abused: No Depression: Not at risk (08/31/2024) Received from [facility] PHQ-2 Patient Health Questionnaire-2 Score: 0 Housing Stability: Low Risk (10/31/2024) Housing Stability Vital Sign Unable to Pay for Housing in the Last Year: No Number of Times Moved in the Last Year: 0 Homeless in the Last Year: No Utilities: Not At Risk (10/31/2024) [facility] Utilities Threatened with loss of utilities: No Health Literacy: Not on file OBJECTIVE: PHYSICAL/PSYCHIATRIC EXAM: Vitals: Vitals: 11/14/24 1445 11/14/24 1500 11/14/24 1515 11/14/24 1530 BP: 150/72 145/91 160/79 135/96 BP Location: Patient Position: Pulse: 74 78 81 84 Resp: Temp: TempSrc: SpO2: Weight: Height: Physical Exam: Physical Exam Vitals and nursing note reviewed. Exam conducted with a grinder and honer operator automatic present. Constitutional: Appearance: Normal appearance. HENT: Head: Normocephalic and atraumatic. Cardiovascular: Rate and Rhythm: Normal rate. Pulmonary: Effort: Pulmonary effort is normal. No respiratory distress. Neurological: Mental Status: She is alert. She is disoriented. Mental Status Exam: MSE: General Observations: Appearance: Appears Stated Age Behavior/Demeanor: Cooperative Speech: WNL Eye Contact: fair Motor: decreased Cognition: Oriented to: Person and Place Level of Consciousness: Alert, Disoriented, and Confused Memory Disturbance: yes Mood and Affect: Mood: Euthymic Affect: Congruent with Mood Thought: Thought Processes: Future Forward Thought Content: Denies Suicidal/Homicidal Ideation, Intent, or Plan and No evidence of psychosis/delusions/alec Suicidal Ideation: None Reported Homicidal Ideation: None Reported Thought Perceptions: Visual Hallucinations per staff Insight and Judgment: Insight: Impaired Judgment: Impaired Data Reviewed: Prior records have been reviewed in EMR Labs/Diagnostics: No results found for this or any previous visit (from the past 24 hours). I reviewed pertinent laboratory results, radiographic results, Most recent EKG: Encounter Date: 10/22/24 ECG 12 lead Result Value Heart Rate 110 QRSD Interval 71 QT Interval 338 QTC Interval 458 P Ionia 53 QRS Ionia 10 T Wave Ionia 161 UT Interval 107 Impression Sinus tachycardia LVH with secondary repolarization abnormality Electronically Signed On 11-01-2024 14:50:23 EDT by Samra Reveles RISK ASSESSMENT: Risk of harm to self: Suicide Risk Assessment (SAFE-T): C-SSRS Screener (Since Last Contact): 1. Wish to be ? No 2. Current suicidal thoughts? No 3. Suicidal thoughts w/ method? 4. Suicidal Intent without specific plan? 5. Intent with plan? 6. Suicidal behavior? No Calculated C-SSRS Risk Score No Risk Indicated ASSESSMENT: Problem List[7] 1. Wound dehiscence 2. Anemia due to other cause, not classified 3. End stage congestive heart failure (HCC) 4. Seizures (HCC) 5. Pressure ulcer of left buttock, stage 3 (HCC) Delirium PLAN: RECOMMENDATIONS: Disposition: Pt is accepting of medical care, denies suicidal/homicidal ideation, intent or plan, and no noted alec or psychosis. Pt does not meet criteria for inpatient psychiatric hospitalization. Medications: PRN quetiapine 12.5 mg BID if hallucinations were to become bothersome. Labs/Diagnostics: per primary Delirium precautions: Avoid sedating/anticholinergic medications, encourage sleep hygiene, minimize barriers to nutrition, optimize sensory input and access to assistive devices (dentures, glasses, etc) where indicated, encourage time up in chair as able, D/c Whyte, restraints, IV lines, as able and reserve agitation PRNs for instances where patient is danger to self/others/treatment. Recommendations shared with primary team. Follow up: peripherally as able Please contact [facility] Listed in [facility] On-Call Finder for urgent needs Mon-Fri: From 1700 - 0800 and Weekends On this day, 11/14/24 , I spent total time 60 minutes preparing to see the pt, reviewing previous notes, obtaining/reviewing separately obtained, history, test results, and coordinating care with hospital staff and if pertinent outpatient providers, as well as documenting all relevant and pertinent clinical information in the patient's electronic record on the day of the visit. In addition,I was able to, spend face/face time counseling/educating the patient/family/caregiver, discuss the diagnosis, current symptom burden, medication side effects, medication change options, and importance of compliance with the treatment plan. For every encounter with this patient, if applicable this Provider wore appropriate PPE including but not limited to standard precautions, N95 mask, surgical mask, gown and/or protective eyewear. Chart reviewed, including notes, labs, imagining, allergies, and medications, all pertinent information discussed with medical staff, nursing, social work, and patient/family if necessary. [1] Current Facility-Administered Medications: acetaminophen (Tylenol) tablet 1,000 mg, 1,000 mg, Oral, q8h, Jamie Camarena, DO, 1,000 mg at 11/14/24 0745 amLODIPine (Norvasc) tablet 5 mg, 5 mg, Oral, Daily, Jamie Camarena DO, 5 mg at 11/14/24 0745 diphenhydrAMINE (BENADryl) injection 25 mg, 25 mg, IntraVENous, q6h PRN, Kailyn Juárez, RADIATION ONCOLOGIST - AGENCY TRAINER levETIRAcetam (Keppra) tablet 500 mg, 500 mg, Oral, Daily, Jamie Fling, DO, 500 mg at 11/14/24 0745 melatonin tablet 5 mg, 5 mg, Oral, Nightly, Jamie Fling, DO, 5 mg at 11/13/241951 naloxone (Narcan) injection 0.4 mg, 0.4 mg, IntraVENous, q5 min PRN, Jamie Fling, DO ondansetron ODT (Zofran-ODT) disintegrating tablet 4 mg, 4 mg, Oral, q8h PRN, 4 mg at 11/13/24 1824 OR ondansetron (Zofran) injection 4 mg, 4 mg, IntraVENous, q6h PRN, Jamie Fling, DO oxyCODONE (Roxicodone) immediate release tablet 5 mg, 5 mg, Oral, q6h PRN, Jamie Fling, DO, 5 mg at 11/14/24 1046 polyethylene glycol (PEG) 3350 (Miralax) packet 17 g, 17 g, Oral, Daily PRN, Jamie Fling, DO sevelamer carbonate (Renvela) tablet 800 mg, 800 mg, Oral, TID WC, Jamie Fling, DO, 800 mg at 11/14/24 0745 silver nitrate applicator, , Topical, Once, Willie Erickson MD [2] No Known Allergies [3] Past Medical History: Diagnosis Date Chronic kidney disease (CKD) Hemodialysis patient (CMS/HCC) ([facility]) Wednesday, , Wednesday History of blood transfusion 02/27/2022 Hypertension Seizure ([facility]) Developed seizure-like activity on 02/24 during hospital admission [4] Family History Problem Relation Name Age of Onset Dementia Mother Stroke Father Prostate cancer Brother 69 Breast cancer Cousin 32 Stomach cancer Mother's Sister 70 [5] Past Surgical History: Procedure Laterality Date AV FISTULA PLACEMENT Left 08/07/2022 COLONOSCOPY N/A 01/25/2024 Performed by Chrissy Gilman MD at [facility] ENDOSCOPY IR CVC TUNNELED DIALYSIS CATHETER PLACEMENT 02/27/2022 IR CVC TUNNELED CATHETER PLACEMENT 02/27/2022 Candis Andrade MD [facility] SPECIAL PROCEDURES IR EMBOLIZATION 01/24/2024 IR EMBOLIZATION 01/24/2024 Jovan Glynn MD [facility] SPECIAL PROCEDURES [6] Social History Tobacco Use Smoking status: Never Smokeless tobacco: Never Vaping Use Vaping status: Never Used Substance Use Topics Alcohol use: Yes Alcohol/week: 2.0 standard drinks of alcohol Types: 2 Glasses of wine per week Comment: weekly Drug use: Never [7] Patient Active Problem List Diagnosis Hypertensive emergency Gastrointestinal hemorrhage, unspecified gastrointestinal hemorrhage type Anemia Pulmonary edema, acute (HCC) Shortness of breath COVID-19 Edema of left lower extremity Sepsis, due to unspecified organism, unspecified whether acute organ dysfunction present (HCC) Seizures (HCC) ESRD (end stage renal disease) (HCC) Dialysis patient (HCC) Wound dehiscence End stage congestive heart failure ([facility]) [facility] [place] Phone: 11-14-2024 Consult note Associated Order (s): IP CONSULT TO PSYCHIATRY Images from the original note were not included. [facility] Department of Psychiatry Nurse Practitioner Consult Note Please contact [facility] [facility] Listed in [facility] On-Call Finder Mon-Fri: From 1700 - 0800 and Weekends IDENTIFYING INFORMATION Name: Apoorva Gonzalez : 1950 TODAY'S DATE: 11/14/24 ADMISSION DATE: 11/12/2024 Reason for Psychiatric Consult: depression, hallucinations Requesting Physician: Dr. Castaneda Consulting Practitioner: MAYANK Mckenzie Hospital Day: 2 SUBJECTIVE: CHIEF COMPLAINT: CC: Chief Complaint Patient presents with Wound Check EMS from [place] for bleeding fistula in left upper arm. DC from [facility] to [place] previously. Principal Problem: Wound dehiscence History obtained from: Patient, Chart Review, and Staff HISTORY OF PRESENT ILLNESS: HPI: Apoovra Gonzalez is a 74 y.o., female who was hospitalized at [facility] for Wound dehiscence on 11/12/2024. PMH of hypertension, ESRD, seizure, hemodialysis (Wednesday, , Wednesday), PSH AV graft placement (Dr. 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 Pt sent to ED by facility due to increased bleeding at site and transferred to [facility] for vascular surgery eval. Psychiatry consulted for depression and hallucinations. Today, pt is seen receiving dialysis, pt is alert and oriented x 2, and is cooperative with interview. Recent hospitalization from 10/22-11/11/2024 at which time pt lacked capacity for medical decision making due to encephalopathy, discharged to SNF, returned to ED on 11/12/2024. Pt reports she has ups and downs but does not generally feel depressed. States hospitalizations have been difficult but has met a lot of nice and caring people. Pt denies any suicidal/homicidal ideation, intent or plan. No alec noted and no s/s of psychosis. Denies AVH and feels managing ok. Denies hx of psychiatric medications, OP services or hospitalizations. She notes strong erma in God and hopeful to get well. Pt does not feel she needs medications for depression or anxiety. Discussed with RN who reports pt noted seeing kittens in room this morning upon waking and that Dr. Castaneda mentioned pt seemed depressed today. REVIEW OF SYSTEMS: MEDICAL & PSYCHIATRIC REVIEW OF SYMPTOMS: All ROS was completed and was negative unless stated above Medications: Current Facility Administered Medications: Current Medications[1] Medications Prior to Admission: Current Outpatient Medications Medication Instructions acetaminophen (TYLENOL) 650 mg, Every 6 hours PRN amLODIPine (NORVASC) 5 mg, Oral, Daily atorvastatin (LIPITOR) 40 mg, Oral, Nightly B complex-vitamin C-folic acid 0.8 mg, Daily calcium acetate (Phoslo) 667 MG tablet 1 tablet, Oral, 3 times daily with meals cholecalciferol (VITAMIN D-3) 5,000 Units, Daily levETIRAcetam (KEPPRA) 500 mg, Oral, Daily magnesium hydroxide (Milk of Magnesia) 2400 MG/10ML suspension suspension 30 mL, Oral, Daily PRN melatonin 5 mg, Oral, Nightly oxyCODONE (ROXICODONE) 5 mg, Oral, Every 6 hours PRN polyethylene glycol (PEG) 3350 (MIRALAX) 17 g, Oral, Daily PRN sevelamer (RENAGEL) 800 mg, 3 times daily with meals sulfamethoxazole-trimethoprim (Bactrim DS) 800-160 MG tablet 1 tablet, Oral, Daily vitamin B-1 250 mg, Daily Allergies: Allergies[2] History: Past Medical and Psychiatric History: Medical History[3] Family Psychiatric and Medical History: Family History[4] PAST SURGICAL HISTORY Surgical History[5] Social History: [place] [facility] since last hospitalization, finds family to be good support system Social History[6] Social Drivers of Health Tobacco Use: Low Risk (11/12/2024) Patient History Smoking Tobacco Use: Never Smokeless Tobacco Use: Never Passive Exposure: Not on file Alcohol Use: Not At Risk (10/31/2024) AUDIT-C Frequency of Alcohol Consumption: Never Average Number of Drinks: Patient does not drink Frequency of Binge Drinking: Never Recent Concern: Alcohol Use - Alcohol Misuse (09/13/2024) AUDIT-C Frequency of Alcohol Consumption: 4 or more times a week Average Number of Drinks: 1 or 2 Frequency of Binge Drinking: Less than monthly Financial Resource Strain: Patient Unable To Answer (10/23/2024) Overall Financial Resource Strain (CARDIA) Difficulty of Paying Living Expenses: Patient unable to answer Food Insecurity: No Food Insecurity (10/31/2024) Hunger Vital Sign Worried About Running Out of Food in the Last Year: Never true Ran Out of Food in the Last Year: Never true Transportation Needs: No Transportation Needs (10/31/2024) PRAPARE - Transportation Lack of Transportation (Medical): No Lack of Transportation (Non-Medical): No Physical Activity: Not on file Stress: Not on file Social Connections: Not on file Intimate Partner Violence: Not At Risk (10/31/2024) Humiliation, Afraid, Rape, and Kick questionnaire Fear of Current or Ex-Partner: No Emotionally Abused: No Physically Abused: No Sexually Abused: No Depression: Not at risk (08/31/2024) Received from [facility] PHQ-2 Patient Health Questionnaire-2 Score: 0 Housing Stability: Low Risk (10/31/2024) Housing Stability Vital Sign Unable to Pay for Housing in the Last Year: No Number of Times Moved in the Last Year: 0 Homeless in the Last Year: No Utilities: Not At Risk (10/31/2024) [facility] Utilities Threatened with loss of utilities: No Health Literacy: Not on file OBJECTIVE: PHYSICAL/PSYCHIATRIC EXAM: Vitals: Vitals: 11/14/24 1445 11/14/24 1500 11/14/24 1515 11/14/24 1530 BP: 150/72 145/91 160/79 135/96 BP Location: Patient Position: Pulse: 74 78 81 84 Resp: Temp: TempSrc: SpO2: Weight: Height: Physical Exam: Physical Exam Vitals and nursing note reviewed. Exam conducted with a grinder and honer operator automatic present. Constitutional: Appearance: Normal appearance. HENT: Head: Normocephalic and atraumatic. Cardiovascular: Rate and Rhythm: Normal rate. Pulmonary: Effort: Pulmonary effort is normal. No respiratory distress. Neurological: Mental Status: She is alert. She is disoriented. Mental Status Exam: MSE: General Observations: Appearance: Appears Stated Age Behavior/Demeanor: Cooperative Speech: WNL Eye Contact: fair Motor: decreased Cognition: Oriented to: Person and Place Level of Consciousness: Alert, Disoriented, and Confused Memory Disturbance: yes Mood and Affect: Mood: Euthymic Affect: Congruent with Mood Thought: Thought Processes: Future Forward Thought Content: Denies Suicidal/Homicidal Ideation, Intent, or Plan and No evidence of psychosis/delusions/alec Suicidal Ideation: None Reported Homicidal Ideation: None Reported Thought Perceptions: Visual Hallucinations per staff Insight and Judgment: Insight: Impaired Judgment: Impaired Data Reviewed: Prior records have been reviewed in EMR Labs/Diagnostics: No results found for this or any previous visit (from the past 24 hours). I reviewed pertinent laboratory results, radiographic results, Most recent EKG: Encounter Date: 10/22/24 ECG 12 lead Result Value Heart Rate 110 QRSD Interval 71 QT Interval 338 QTC Interval 458 P Ionia 53 QRS Ionia 10 T Wave Ionia 161 UT Interval 107 Impression Sinus tachycardia LVH with secondary repolarization abnormality Electronically Signed On 11-01-2024 14:50:23 EDT by Samra Reveles RISK ASSESSMENT: Risk of harm to self: Suicide Risk Assessment (SAFE-T): C-SSRS Screener (Since Last Contact): 1. Wish to be ? No 2. Current suicidal thoughts? No 3. Suicidal thoughts w/ method? 4. Suicidal Intent without specific plan? 5. Intent with plan? 6. Suicidal behavior? No Calculated C-SSRS Risk Score No Risk Indicated ASSESSMENT: Problem List[7] 1. Wound dehiscence 2. Anemia due to other cause, not classified 3. End stage congestive heart failure (HCC) 4. Seizures (HCC) 5. Pressure ulcer of left buttock, stage 3 (HCC) Delirium PLAN: RECOMMENDATIONS: Disposition: Pt is accepting of medical care, denies suicidal/homicidal ideation, intent or plan, and no noted alec or psychosis. Pt does not meet criteria for inpatient psychiatric hospitalization. Medications: PRN quetiapine 12.5 mg BID if hallucinations were to become bothersome. Labs/Diagnostics: per primary Delirium precautions: Avoid sedating/anticholinergic medications, encourage sleep hygiene, minimize barriers to nutrition, optimize sensory input and access to assistive devices (dentures, glasses, etc) where indicated, encourage time up in chair as able, D/c Whyte, restraints, IV lines, as able and reserve agitation PRNs for instances where patient is danger to self/others/treatment. Recommendations shared with primary team. Follow up: peripherally as able Please contact [facility] Listed in [facility] On-Call Finder for urgent needs Mon-Fri: From 1700 - 0800 and Weekends On this day, 11/14/24 , I spent total time 60 minutes preparing to see the pt, reviewing previous notes, obtaining/reviewing separately obtained, history, test results, and coordinating care with hospital staff and if pertinent outpatient providers, as well as documenting all relevant and pertinent clinical information in the patient's electronic record on the day of the visit. In addition,I was able to, spend face/face time counseling/educating the patient/family/caregiver, discuss the diagnosis, current symptom burden, medication side effects, medication change options, and importance of compliance with the treatment plan. For every encounter with this patient, if applicable this Provider wore appropriate PPE including but not limited to standard precautions, N95 mask, surgical mask, gown and/or protective eyewear. Chart reviewed, including notes, labs, imagining, allergies, and medications, all pertinent information discussed with medical staff, nursing, social work, and patient/family if necessary. [1] Current Facility-Administered Medications: acetaminophen (Tylenol) tablet 1,000 mg, 1,000 mg, Oral, q8h, Jamie Camarena DO, 1,000 mg at 11/14/24 0745 amLODIPine (Norvasc) tablet 5 mg, 5 mg, Oral, Daily, Jamie Fling, DO, 5 mg at 11/14/24 0745 diphenhydrAMINE (BENADryl) injection 25 mg, 25 mg, IntraVENous, q6h PRN, Kailyn Juárez, RADIATION ONCOLOGIST - AGENCY TRAINER levETIRAcetam (Keppra) tablet 500 mg, 500 mg, Oral, Daily, Jamie Fling, DO, 500 mg at 11/14/24 0745 melatonin tablet 5 mg, 5 mg, Oral, Nightly, Jamie Fling, DO, 5 mg at 11/13/241951 naloxone (Narcan) injection 0.4 mg, 0.4 mg, IntraVENous, q5 min PRN, Jamie Fling, DO ondansetron ODT (Zofran-ODT) disintegrating tablet 4 mg, 4 mg, Oral, q8h PRN, 4 mg at 11/13/24 1824 OR ondansetron (Zofran) injection 4 mg, 4 mg, IntraVENous, q6h PRN, Jamie Fling, DO oxyCODONE (Roxicodone) immediate release tablet 5 mg, 5 mg, Oral, q6h PRN, Jamie Fling, DO, 5 mg at 11/14/24 1046 polyethylene glycol (PEG) 3350 (Miralax) packet 17 g, 17 g, Oral, Daily PRN, Jamie Fling, DO sevelamer carbonate (Renvela) tablet 800 mg, 800 mg, Oral, TID WC, Jamie Fling, DO, 800 mg at 11/14/24 0745 silver nitrate applicator, , Topical, Once, Willie Erickson MD [2] No Known Allergies [3] Past Medical History: Diagnosis Date Chronic kidney disease (CKD) Hemodialysis patient (CMS/HCC) (HCC) Wednesday, , Wednesday History of blood transfusion 02/27/2022 Hypertension Seizure (HCC) Developed seizure-like activity on 02/24 during hospital admission [4] Family History Problem Relation Name Age of Onset Dementia Mother Stroke Father Prostate cancer Brother 69 Breast cancer Cousin 32 Stomach cancer Mother's Sister 70 [5] Past Surgical History: Procedure Laterality Date AV FISTULA PLACEMENT Left 08/07/2022 COLONOSCOPY N/A 01/25/2024 Performed by Chrissy Gilman MD at [facility] ENDOSCOPY IR CVC TUNNELED DIALYSIS CATHETER PLACEMENT 02/27/2022 IR CVC TUNNELED CATHETER PLACEMENT 02/27/2022 Candis Andrade MD [facility] SPECIAL PROCEDURES IR EMBOLIZATION 01/24/2024 IR EMBOLIZATION 01/24/2024 Jovan Glynn MD [facility] SPECIAL PROCEDURES [6] Social History Tobacco Use Smoking status: Never Smokeless tobacco: Never Vaping Use Vaping status: Never Used Substance Use Topics Alcohol use: Yes Alcohol/week: 2.0 standard drinks of alcohol Types: 2 Glasses of wine per week Comment: weekly Drug use: Never [7] Patient Active Problem List Diagnosis Hypertensive emergency Gastrointestinal hemorrhage, unspecified gastrointestinal hemorrhage type Anemia Pulmonary edema, acute (HCC) Shortness of breath COVID-19 Edema of left lower extremity Sepsis, due to unspecified organism, unspecified whether acute organ dysfunction present (HCC) Seizures (HCC) ESRD (end stage renal disease) (HCC) Dialysis patient (HCC) Wound dehiscence End stage congestive heart failure ([facility]) Associated Order(s): Inpatient consult to Nephrology [facility] Nephrology Consult Note Inpatient consult to Nephrology Consult performed by: Karis Stone NP Consult ordered by: Aramis Blankenship MD HPI Patient is a 74 y.o. female who is admitted to hospital with complaints of bleeding AVG site . Nephrology consulted in view of ESRD. PMHx hypertension, ESRD, seizure, hemodialysis (Wednesday, , Wednesday), PSH AV graft placement (Dr. 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 Patient was admitted 10/22-11/11. During that time her graft was excised, she underwent repeat surgery for hematoma evacuation, infectious disease was consulted and recommended Bactrim renally dosed through November 13.pt presented to ED from facility with increased bleeding from avg site. She was transferred to [facility] for vascular surgery evaluation. Pt seen in room having some arm pain. No need for HD today. Medical History[1] Social History Socioeconomic History Marital status: Spouse name: Not on file Number of children: Not on file Years of education: Not on file Highest education level: Not on file Occupational History Not on file Tobacco Use Smoking status: Never Smokeless tobacco: Never Vaping Use Vaping status: Never Used Substance and Sexual Activity Alcohol use: Yes Alcohol/week: 2.0 standard drinks of alcohol Types: 2 Glasses of wine per week Comment: weekly Drug use: Never Sexual activity: Not on file Other Topics Concern Not on file Social History Narrative Not on file Social Drivers of Health Financial Resource Strain: Patient Unable To Answer (10/23/2024) Overall Financial Resource Strain (CARDIA) Difficulty of Paying Living Expenses: Patient unable to answer Food Insecurity: No Food Insecurity (10/31/2024) Hunger Vital Sign Worried About Running Out of Food in the Last Year: Never true Ran Out of Food in the Last Year: Never true Transportation Needs: No Transportation Needs (10/31/2024) PRAPARE - Transportation Lack of Transportation (Medical): No Lack of Transportation (Non-Medical): No Physical Activity: Not on file Stress: Not on file Social Connections: Not on file Intimate Partner Violence: Not At Risk (10/31/2024) Humiliation, Afraid, Rape, and Kick questionnaire Fear of Current or Ex-Partner: No Emotionally Abused: No Physically Abused: No Sexually Abused: No Housing Stability: Low Risk (10/31/2024) Housing Stability Vital Sign Unable to Pay for Housing in the Last Year: No Number of Times Moved in the Last Year: 0 Homeless in the Last Year: No Family History[2] Current Medications[3] Scheduled medications Scheduled Meds[4] Continuous medications Continuous Meds[5] PRN medications PRN Meds[6] Review of systems as per HPI otherwise 10 point review systems negative BP (!) 167/89 (BP Location: Right arm, Patient Position: Sitting) Pulse 79 Temp 36.3 C (97.3 F) (Temporal) Resp 17 Ht 1.626 m (5' 4) Wt 53.1 kg (117 lb) SpO2 100% BMI 20.08 kg/m Input / Output: 24 HR: No intake or output data in the 24 hours ending 11/13/24 1104 Physical Exam Alert and oriented x 3, NAD Neck: supple, No JVD Abd: soft NT/ND Ext: no lower extremity edema Skin: no rashes Results from last 7 days Lab Units 11/13/24 0001 11/12/24 1525 11/11/24 0539 SODIUM mmol/L 137 140 138 POTASSIUM mmol/L 4.0 4.0 4.5 CHLORIDE mmol/L 103 104 105 CO2 mmol/L 23 24 24 BUN mg/dL 16 15 26* CREATININE mg/dL 3.51* 3.37* 4.23* GLUCOSE mg/dL 62* 78* 67* CALCIUM mg/dL 7.6* 8.1* 7.3* Results from last 7 days Lab Units 11/13/24 0001 SODIUM mmol/L 137 POTASSIUM mmol/L 4.0 CHLORIDE mmol/L 103 CO2 mmol/L 23 BUN mg/dL 16 CREATININE mg/dL 3.51* CALCIUM mg/dL 7.6* GLUCOSE mg/dL 62* Results from last 7 days Lab Units 11/13/24 0001 11/12/24 1450 11/11/24 0539 WBC AUTO 10*3/uL 10.1 10.9* 12.6* HEMOGLOBIN g/dL 7.1* 9.3* 7.0* HEMATOCRIT % 22.7* 29.0* 21.8* PLATELETS 10*3/uL 495* 407 480* No orders to display Assessment: Patient is 74 y.o. female who is admitted to hospital for vascular evaluation of former avg site excessive bleeding. Nephrology consulted in view of ESRD . ESRD on TTS HD TDC CDI Volume. Traced edema +LUE Bp stable UF as tolerated with HD Acute on chronic Anemia in CKD. Av graft hematoma HODAN as OP follow H&H Transfuse forhgb <7.0 blood TF per primary team CKDMBD. Not on binders at this time check phos in AM phos gaol 3.5-5.5 Plan Continue TTS HD No need for HD today Pt stable for discharge from renal standpoint when ready Thank you for allowing me to care for pt. Feel free to reach out with any questions or concerns Karis Stone APRN AGENCY TRAINER A-G MILLINERY DEPARTMENT MANAGER [facility] [phone] Pt seen and examined independently by me. I reviewed with Karis Stone APRN-TAMIR the saavedra portions of the medical history and the findings on physical examination. I discussed the patient s saavedra portions of the diagnosis and concur with the treatment plan as documented in her note. Please message me through Epic with any questions or concerns. Sean Castaneda MD [1] Past Medical History: Diagnosis Date Chronic kidney disease (CKD) Hemodialysis patient (CMS/HCC) (HCC) Wednesday, , Wednesday History of blood transfusion 02/27/2022 Hypertension Seizure (HCC) Developed seizure-like activity on 02/24 during hospital admission [2] Family History Problem Relation Name Age of Onset Dementia Mother Stroke Father Prostate cancer Brother 69 Breast cancer Cousin 32 Stomach cancer Mother's Sister 70 [3] Current Facility-Administered Medications: acetaminophen (Tylenol) tablet 1,000 mg, 1,000 mg, Oral, q8h, Jamie Fling, DO, 1,000 mg at 11/13/24908 amLODIPine (Norvasc) tablet 5 mg, 5 mg, Oral, Daily, Jamie Fling, DO, 5 mg at 11/13/24 09 collagenase 250 UNIT/GM ointment, , Topical, PRN, Jamie Fling, DO collagenase 250 UNIT/GM ointment, , Topical, Daily, Jamie Fling, DO HYDROmorphone (Dilaudid) injection 0.25 mg, 0.25 mg, IntraVENous, q4h PRN, Jamie Fling, DO, 0.25 mg at 11/12/24 225 levETIRAcetam (Keppra) tablet 500 mg, 500 mg, Oral, Daily, Jamie Fling, DO, 500 mg at 11/13/24907 melatonin tablet 5 mg, 5 mg, Oral, Nightly, Jamie Fling, DO, 5 mg at 11/12/24 192 naloxone (Narcan) injection 0.4 mg, 0.4 mg, IntraVENous, q5 min PRN, Jamie Fling, DO ondansetron ODT (Zofran-ODT) disintegrating tablet 4 mg, 4 mg, Oral, q8h PRN OR ondansetron (Zofran) injection 4 mg, 4 mg, IntraVENous, q6h PRN, Jamie Fling, DO oxyCODONE (Roxicodone) immediate release tablet 5 mg, 5 mg, Oral, q6h PRN, Jamie Fling, DO, 5 mg at 11/13/24 0622 polyethylene glycol (PEG) 3350 (Miralax) packet 17 g, 17 g, Oral, Daily PRN, Jamie Fling, DO sevelamer carbonate (Renvela) tablet 800 mg, 800 mg, Oral, TID WC, Jamie Fling, DO, 800 mg at 11/13/24 0908 silver nitrate applicator, , Topical, Once, Willie Erickson MD [4] acetaminophen, 1,000 mg, Oral, q8h amLODIPine, 5 mg, Oral, Daily collagenase, , Topical, Daily levETIRAcetam, 500 mg, Oral, Daily melatonin, 5 mg, Oral, Nightly sevelamer carbonate, 800 mg, Oral, TID WC silver nitrate, , Topical, Once [5] [6] PRN medications: collagenase, HYDROmorphone, naloxone, ondansetron ODT OR ondansetron, oxyCODONE, polyethylene glycol (PEG) 3350 Associated Order(s): IP CONSULT TO VASCULAR SURGERY Images from the original note were not included. Vascular Surgery Consultation Note Reason for Consult: LUE wound HISTORY OF PRESENT ILLNESS: The patient is a 74 y.o. female with PMHx hypertension, ESRD, seizure, hemodialysis (Wednesday, , Wednesday), [facility] AV graft placement (Dr. 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 Patient was admitted 10/22-11/11. During that time her graft was excised, she underwent repeat surgery for hematoma evacuation, infectious disease was consulted and recommended Bactrim renally dosed through November 13. She represented [facility] at [facility] from shelter for bleeding from her LUE former graft site. She was transferred to [facility] for vascular surgery evaluation. Work up shows patient is afebrile, HDS on room air. WBC 10.9, Hgb 9.3 (7.0 on DC), plt 407, creatinine 3.37. IMPRESSION: 74 y.o. female w/ LUE AV graft site with concern for bleeding RECOMMENDATIONS: - No urgent operative intervention - After clinical evaluation, the patient has 3 incision sites, the middle incision site was left purposely open after patient's hematoma evacuation surgery. The site did have some blood clot, but does not appear to be actively bleeding at this time. - Site was packed with gauze and wrapped with Kerlix and Rosey wrap - Rest of management per medicine - Vascular will see patient tomorrow, anticipate patient should be ready for DC back to facility tomorrow after repeat evaluation - LAURA Jimenez skilled nursing professional for Dr. Fernandez Medical History[1] Surgical History[2] Current Medications: Continuous Meds[3] PRN Meds[4] Scheduled Meds[5] Allergies: Patient has no known allergies. Social History Socioeconomic History Marital status: Spouse name: Not on file Number of children: Not on file Years of education: Not on file Highest education level: Not on file Occupational History Not on file Tobacco Use Smoking status: Never Smokeless tobacco: Never Vaping Use Vaping status: Never Used Substance and Sexual Activity Alcohol use: Yes Alcohol/week: 2.0 standard drinks of alcohol Types: 2 Glasses of wine per week Comment: weekly Drug use: Never Sexual activity: Not on file Other Topics Concern Not on file Social History Narrative Not on file Social Drivers of Health Financial Resource Strain: Patient Unable To Answer (10/23/2024) Overall Financial Resource Strain (CARDIA) Difficulty of Paying Living Expenses: Patient unable to answer Food Insecurity: No Food Insecurity (10/31/2024) Hunger Vital Sign Worried About Running Out of Food in the Last Year: Never true Ran Out of Food in the Last Year: Never true Transportation Needs: No Transportation Needs (10/31/2024) PRAPARE - Transportation Lack of Transportation (Medical): No Lack of Transportation (Non-Medical): No Physical Activity: Not on file Stress: Not on file Social Connections: Not on file Intimate Partner Violence: Not At Risk (10/31/2024) Humiliation, Afraid, Rape, and Kick questionnaire Fear of Current or Ex-Partner: No Emotionally Abused: No Physically Abused: No Sexually Abused: No Housing Stability: Low Risk (10/31/2024) Housing Stability Vital Sign Unable to Pay for Housing in the Last Year: No Number of Times Moved in the Last Year: 0 Homeless in the Last Year: No Family History[6] REVIEW OF SYSTEMS: The chart was reviewed. Review of Systems Constitutional: Negative for chills and fever. HENT: Negative for congestion and drooling. Eyes: Negative for discharge and redness. Respiratory: Negative for cough and choking. Cardiovascular: Negative for chest pain and leg swelling. Gastrointestinal: Negative for nausea and vomiting. Musculoskeletal: Negative for neck pain and neck stiffness. Skin: Positive for wound. Negative for rash. Neurological: Negative for seizures and facial asymmetry. Psychiatric/Behavioral: Positive for confusion (Experiencing some mild hospital delerium). Negative for agitation. LABS: Lab Results Component Value Date CREATININE 3.37 (H) 11/12/2024 Lab Results Component Value Date WBC 10.9 (H) 11/12/2024 HGB 9.3 (L) 11/12/2024 HCT 29.0 (L) 11/12/2024 MCV 91.2 11/12/2024 PLT 407 11/12/2024 Lab Results Component Value Date INR 1.1 11/01/2024 INR 1.0 10/09/2024 INR 1.2 (H) 09/17/2024 PROTIME 11.8 11/01/2024 PROTIME 11.1 10/09/2024 PROTIME 12.3 (H) 09/17/2024 No results found for: VLDL PHYSICAL EXAM: Vitals: 11/12/24 1724 BP: 151/86 Pulse: 90 Resp: 18 Temp: 37 C (98.6 F) SpO2: 100% Physical Exam Constitutional: Appearance: Normal appearance. HENT: Head: Normocephalic and atraumatic. Right Ear: External ear normal. Left Ear: External ear normal. Nose: Nose normal. No congestion. Mouth/Throat: Mouth: Mucous membranes are moist. Pharynx: Oropharynx is clear. Eyes: Extraocular Movements: Extraocular movements intact. Pupils: Pupils are equal, round, and reactive to light. Cardiovascular: Rate and Rhythm: Normal rate and regular rhythm. Pulses: Normal pulses. Pulmonary: Effort: Pulmonary effort is normal. Breath sounds: Normal breath sounds. Abdominal: General: There is no distension. Palpations: Abdomen is soft. Musculoskeletal: Cervical back: Normal range of motion and neck supple. Right lower leg: No edema. Comments: LUE as pictures below, 3 incision sites, middle incision site purposely left open, with small amount of blood clot easily removed, no active bleeding Skin: General: Skin is warm and dry. Capillary Refill: Capillary refill takes less than 2 seconds. Neurological: Mental Status: She is alert. Comments: +Confused, asking if her phone is on the counter when it is not present, keeps thinking she is in her shelter Psychiatric: Mood and Affect: Mood normal. Behavior: Behavior normal. LABS: Lab Results Component Value Date WBC 10.9 (H) 11/12/2024 HGB 9.3 (L) 11/12/2024 HCT 29.0 (L) 11/12/2024 PLT 407 11/12/2024 PROTIME 11.8 11/01/2024 INR 1.1 11/01/2024 K 4.0 11/12/2024 BUN 15 11/12/2024 CREATININE 3.37 (H) 11/12/2024 VASCULAR TESTING: No new imaging this admission . [1] Past Medical History: Diagnosis Date Chronic kidney disease (CKD) Hemodialysis patient (CMS/HCC) (HCC) Wednesday, , Wednesday History of blood transfusion 02/27/2022 Hypertension Seizure (HCC) Developed seizure-like activity on 02/24 during hospital admission [2] Past Surgical History: Procedure Laterality Date AV FISTULA PLACEMENT Left 08/07/2022 COLONOSCOPY N/A 01/25/2024 Performed by Chrissy Gilman MD at [facility] ENDOSCOPY IR CVC TUNNELED DIALYSIS CATHETER PLACEMENT 02/27/2022 IR CVC TUNNELED CATHETER PLACEMENT 02/27/2022 Candis Andrade MD [facility] SPECIAL PROCEDURES IR EMBOLIZATION 01/24/2024 IR EMBOLIZATION 01/24/2024 Jovan Glynn MD [facility] SPECIAL PROCEDURES [3] [4] PRN medications: collagenase, HYDROmorphone, naloxone, ondansetron ODT OR ondansetron, oxyCODONE, polyethylene glycol (PEG) 3350 [5] acetaminophen, 1,000 mg, Oral, q8h [START ON 11/13/2024] amLODIPine, 5 mg, Oral, Daily [START ON 11/13/2024] collagenase, , Topical, Daily [START ON 11/13/2024] levETIRAcetam, 500 mg, Oral, Daily melatonin, 5 mg, Oral, Nightly [START ON 11/13/2024] sevelamer carbonate, 800 mg, Oral, TID WC [START ON 11/13/2024] sulfamethoxazole-trimethoprim, 1 tablet, Oral, Daily [6] Family History Problem Relation Name Age of Onset Dementia Mother Stroke Father Prostate cancer Brother 69 Breast cancer Cousin 32 Stomach cancer Mother's Sister 70 Cosigned by Dee Jimenez MD at 11/13/2024 11:14 AM EDT documented in this encounter [facility] 11-14-2024 Progress note Formatting of t his note might be different from the original. BOX ESTIMATOR spoke with [facility] [phone] son regarding [employer] benefits during a skilled stay in a facility. How insurance dictates skilled time in a SNF. Educated on medicaid, rules, and Patient liability in a SNF. BOX ESTIMATOR assisted with medicaid application and faxed to [email or web address]. Son to sign paperwork and send back to BOX ESTIMATOR to file with [facility]. hand worker to follow. [facility] 11-14-2024 Nurse Note 03:30 Pt refusing blood work. MILLINERY DEPARTMENT MANAGER dori made aware. [facility] 11-13-2024 Note Referral placed to [facility] via [facility] per [facility] request. Await review and response regarding ability to accept. TCC notified. [facility] 11-13-2024 Progress note Formatting of t his note might be different from the original. Ref[facility] request. Await review and response regarding ability to accept. TCC notified. [facility] 11-13-2024 Progress note Formatting of t his note might be different from the original. Care Management Progress Note Short Medical why still here: Awaiting insurance authorization for return to SNF. Planned Discharge Disposition: [facility] Facility Barriers/Today we still Wait: Facility pre-cert Length of Stay (Days): 1 GMLOS: No GMLOS Documented - CM referral acknowledged. - TCC received update that discharge order had been written. - TCC spoke with the patient to introduce self/role and the patient stated she did want to return to the facility. - TCC tasked BODY CORPORATE MANAGER to initiate referral in [facility]. - TCC spoke with admission staff May at [facility] who verified a new auth will be needed for the patient to return to the facility. - TCC tasked BODY CORPORATE MANAGER to initiate [employer] authorization and updated attending that authorization will be need to be approved before the patient can be discharge back to her SNF. Attending acknowledged the update. _ TCC will continue to follow. [facility] 11-13-2024 Hospital Discharge instructions PARK Ramirez CNP - 11/13/2024 2:19 PM EDT Vascular -Follow up in office scheduled for 11/22/24 @ 9:15AM Wet to dry dressing to middle upper arm incision. Wrap with kerlex and compression with rosey wrap. BID dressing changes Follow- up with PCP within 2 weeks. Repeat CBC 11/14/24 Jairon Travis RN - 11/14/2024 2:38 PM EDT Images from the original note were not included. Continuity of Care Form Patient Name: Apoorva Gonzalez : 1950 Admit date: 11/12/2024 Discharge date: 11/15/24 Code Status Order: DNR-CCA Advance Directives: Y Admitting Physician: Edson Velazquez MD PCP: Roxie Spain Discharging Nurse: Jairon [facility] Unit/Room#: 1C-134/1C-134 A Discharging Unit Phone Number: [phone] Emergency Contact: Extended Emergency Contact Information Primary Emergency Contact: Deshawn Crystal Mobile Relation: Brother Technical Coordinator needed? No Secondary Emergency Contact: RuggieroEdward Mobile Relation: Significant Other Preferred language: Cambodian Technical Coordinator needed? No Past Surgical History: Past Surgical History: Procedure Laterality Date AV FISTULA PLACEMENT Left 08/07/2022 COLONOSCOPY N/A 01/25/2024 Performed by Chrissy Gilman MD at [facility] ENDOSCOPY IR CVC TUNNELED DIALYSIS CATHETER PLACEMENT 02/27/2022 IR CVC TUNNELED CATHETER PLACEMENT 02/27/2022 Candis Andrade MD [facility] SPECIAL PROCEDURES IR EMBOLIZATION 01/24/2024 IR EMBOLIZATION 01/24/2024 Jovan Glynn MD [facility] SPECIAL PROCEDURES Immunization History: Immunization History Administered Date(s) Administered Moderna SARS-CoV-2 Vaccination 07/24/2020, 08/21/2020, 03/05/2021 Active Problems: Medical Problems Problem List * (Principal) Wound dehiscence Hypertensive emergency Gastrointestinal hemorrhage, unspecified gastrointestinal hemorrhage type Pulmonary edema, acute (HCC) Shortness of breath COVID-19 Edema of left lower extremity Sepsis, due to unspecified organism, unspecified whether acute organ dysfunction present (HCC) Seizures (HCC) ESRD (end stage renal disease) (HCC) Dialysis patient (HCC) End stage congestive heart failure (HCC) Anemia Isolation/Infection: Contact CRE Nurse Assessment: Last Vital Signs: BP 133/65 Pulse 69 Temp 36.4 C (97.6 F) Resp 18 Ht 1.626 m (5' 4) Wt 53.1 kg (117 lb) SpO2 96% BMI 20.08 kg/m Last documented pain score (0-10 scale): Last Weight: Wt Readings from Last 1 Encounters: 11/12/24 53.1 kg (117 lb) Mental Status: SHERIE Patient Mental Status: oriented and alert IV Access: L subclavian dialysis catheter, last dressing change done on 11/14/24 Nursing Mobility/ADLs: Walking Total assistance Transfer Total assistance Bathing Total assistance Dressing Total assistance Toileting Minimal assistance Feeding Minimal assistance Retail Marketing Specialist Independent Med Delivery yes Wound Care Documentation and Therapy: Wound/Incision 09/14/24 Incision Leg Anterior;Right;Upper (Active) Number of days: 60 Wound/Incision 09/26/24 Pressure Injury Sacrum (Active) Site Assessment Unable to assess 11/14/24 0750 Aminah-Wound Assessment Fragile 11/09/24 0844 Wound Length (cm) 2.4 cm 11/08/24 0041 Wound Width (cm) 3 cm 11/08/24 0041 Wound Surface Area (cm^2) 5.65 cm^2 11/08/24 0041 Drainage Description Yellow 11/08/24 2323 Odor None 11/14/24 0049 Drainage Amount None 11/14/24 0049 Treatments Site care;Cleansed 11/13/24 1700 Primary Dressing Foam 11/14/24 0750 Topical Santyl 11/01/24 1403 Dressing Status New dressing 11/14/24 1115 Number of days: 48 Wound/Incision 11/02/24 Incision Arm Anterior;Left;Upper (Active) Site Assessment Bleeding 11/14/24 1115 Aminah-Wound Assessment Unable to assess 11/12/24 1730 Closure Unable to assess 11/05/24 1340 Odor None 11/14/24 0049 Drainage Amount Moderate 11/14/24 1115 Treatments Cleansed 11/14/24 1115 Primary Dressing Rolled gauze (Kerlix);ABD;Elastic bandage wrap (ROSEY) 11/14/24 1115 Dressing Status New dressing 11/14/24 1115 Margins Unable to assess 11/05/24 1340 Number of days: 12 Elimination: Continence: Bowel: no Bladder: no Urinary Catheter: None Colostomy/Ileostomy/Ileal Conduit: None Date of Last BM: 11/15 Intake/Output Summary (Last 24 hours) at 11/14/2024 1437 Last data filed at 11/13/2024 2107 Gross per 24 hour Intake 50 ml Output -- Net 50 ml I/O last 3 completed shifts: In: 50 (0.9 mL/kg) [P.O.:50] Out: - (0 mL/kg) Weight: 53.1 kg Safety Concerns: at risk for falls and history of seizures Impairments/Disabilities: none Nutrition Therapy: Current Nutrition Therapy: Oral diet: general Routes of Feeding: oral Liquids: thin liquids Daily Fluid Restriction: no Last Modified Barium Swallow with Video (Video Swallowing Test): not done Treatments at the Time of Hospital Discharge: Respiratory Treatments: Oxygen Therapy: is not on home oxygen therapy. Ventilator: No ventilator support Rehab Therapies: physical therapy, occupational therapy, and nursing Weight Bearing Status/Restrictions: no restriction Other Medical Equipment (for information only, NOT a DME order): wheeled walker Other Treatments: Patient's personal belongings (please select all that are sent with patient): RN SIGNATURE: MANAGEMENT/SOCIAL WORK SECTION Inpatient Status Date: Admitted observation on 11/12/24 Discharging to Facility/ Agency Name: [facility] Address: [address] [place] [address] Fax: Dialysis Facility (if applicable) Name: Address: Dialysis Schedule: Phone: Fax: Central Supply Nurse/[employer] Charter Bus Driver signature: ICIAN SECTION Name: Apoorva Gonzalez Prognosis: good Condition at Discharge: stable Rehab Potential (if transferring to Rehab): good Recommended Labs or Other Treatments After Discharge: NA The individual is being admitted to a nursing facility directly from an [facility] or a unit of a [facility] that is not operated by or licensed by [facility] under section 5119.14 or 5160-3-15.1 5 The individual requires the level of services provided by a nursing facility for the condition for which he or she was treated in the hospital and, Physician Certification: I certify the above information and transfer of Apoorva Gonzalez is necessary for the continuing treatment of the diagnosis listed and that she requires halfway facility for less than 30 days. Update Admission H&P: No change in H&P PHYSICIAN SIGNATURE: documented in this encounter [facility] 11-13-2024 Consult note Associated Order (s): Inpatient consult to Nephrology [facility] Nephrology Consult Note Inpatient consult to Nephrology Consult performed by: Karis Stone NP Consult ordered by: Aramis Blankenship MD HPI Patient is a 74 y.o. female who is admitted to hospital with complaints of bleeding AVG site . Nephrology consulted in view of ESRD. PMHx hypertension, ESRD, seizure, hemodialysis (Wednesday, , Wednesday), [facility] AV graft placement (Dr. 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 Patient was admitted 10/22-11/11. During that time her graft was excised, she underwent repeat surgery for hematoma evacuation, infectious disease was consulted and recommended Bactrim renally dosed through November 13.pt presented to ED from facility with increased bleeding from avg site. She was transferred to [facility] for vascular surgery evaluation. Pt seen in room having some arm pain. No need for HD today. Medical History[1] Social History Socioeconomic History Marital status: Spouse name: Not on file Number of children: Not on file Years of education: Not on file Highest education level: Not on file Occupational History Not on file Tobacco Use Smoking status: Never Smokeless tobacco: Never Vaping Use Vaping status: Never Used Substance and Sexual Activity Alcohol use: Yes Alcohol/week: 2.0 standard drinks of alcohol Types: 2 Glasses of wine per week Comment: weekly Drug use: Never Sexual activity: Not on file Other Topics Concern Not on file Social History Narrative Not on file Social Drivers of Health Financial Resource Strain: Patient Unable To Answer (10/23/2024) Overall Financial Resource Strain (CARDIA) Difficulty of Paying Living Expenses: Patient unable to answer Food Insecurity: No Food Insecurity (10/31/2024) Hunger Vital Sign Worried About Running Out of Food in the Last Year: Never true Ran Out of Food in the Last Year: Never true Transportation Needs: No Transportation Needs (10/31/2024) PRAPARE - Transportation Lack of Transportation (Medical): No Lack of Transportation (Non-Medical): No Physical Activity: Not on file Stress: Not on file Social Connections: Not on file Intimate Partner Violence: Not At Risk (10/31/2024) Humiliation, Afraid, Rape, and Kick questionnaire Fear of Current or Ex-Partner: No Emotionally Abused: No Physically Abused: No Sexually Abused: No Housing Stability: Low Risk (10/31/2024) Housing Stability Vital Sign Unable to Pay for Housing in the Last Year: No Number of Times Moved in the Last Year: 0 Homeless in the Last Year: No Family History[2] Current Medications[3] Scheduled medications Scheduled Meds[4] Continuous medications Continuous Meds[5] PRN medications PRN Meds[6] Review of systems as per HPI otherwise 10 point review systems negative BP (!) 167/89 (BP Location: Right arm, Patient Position: Sitting) Pulse 79 Temp 36.3 C (97.3 F) (Temporal) Resp 17 Ht 1.626 m (5' 4) Wt 53.1 kg (117 lb) SpO2 100% BMI 20.08 kg/m Input / Output: 24 HR: No intake or output data in the 24 hours ending 11/13/24 1104 Physical Exam Alert and oriented x 3, NAD Neck: supple, No JVD Abd: soft NT/ND Ext: no lower extremity edema Skin: no rashes Results from last 7 days Lab Units 11/13/24 0001 11/12/24 1525 11/11/24 0539 SODIUM mmol/L 137 140 138 POTASSIUM mmol/L 4.0 4.0 4.5 CHLORIDE mmol/L 103 104 105 CO2 mmol/L 23 24 24 BUN mg/dL 16 15 26* CREATININE mg/dL 3.51* 3.37* 4.23* GLUCOSE mg/dL 62* 78* 67* CALCIUM mg/dL 7.6* 8.1* 7.3* Results from last 7 days Lab Units 11/13/24 0001 SODIUM mmol/L 137 POTASSIUM mmol/L 4.0 CHLORIDE mmol/L 103 CO2 mmol/L 23 BUN mg/dL 16 CREATININE mg/dL 3.51* CALCIUM mg/dL 7.6* GLUCOSE mg/dL 62* Results from last 7 days Lab Units 11/13/24 0001 11/12/24 1450 11/11/24 0539 WBC AUTO 10*3/uL 10.1 10.9* 12.6* HEMOGLOBIN g/dL 7.1* 9.3* 7.0* HEMATOCRIT % 22.7* 29.0* 21.8* PLATELETS 10*3/uL 495* 407 480* No orders to display Assessment: Patient is 74 y.o. female who is admitted to hospital for vascular evaluation of former avg site excessive bleeding. Nephrology consulted in view of ESRD . ESRD on TTS HD TDC CDI Volume. Traced edema +LUE Bp stable UF as tolerated with HD Acute on chronic Anemia in CKD. Av graft hematoma HODAN as OP follow H&H Transfuse forhgb <7.0 blood TF per primary team CKDMBD. Not on binders at this time check phos in AM phos gaol 3.5-5.5 Plan Continue TTS HD No need for HD today Pt stable for discharge from renal standpoint when ready Thank you for allowing me to care for pt. Feel free to reach out with any questions or concerns Karis Stone APRN AGENCY TRAINER A-G MILLINERY DEPARTMENT MANAGER [facility] [phone] Pt seen and examined independently by me. I reviewed with Karis Stone APRN-TAMIR the saavedra portions of the medical history and the findings on physical examination. I discussed the patient s saavedra portions of the diagnosis and concur with the treatment plan as documented in her note. Please message me through [employer] with any questions or concerns. Sean Castaneda MD [1] Past Medical History: Diagnosis Date Chronic kidney disease (CKD) Hemodialysis patient (CMS/HCC) (HCC) Wednesday, , Wednesday History of blood transfusion 02/27/2022 Hypertension Seizure (HCC) Developed seizure-like activity on 02/24 during hospital admission [2] Family History Problem Relation Name Age of Onset Dementia Mother Stroke Father Prostate cancer Brother 69 Breast cancer Cousin 32 Stomach cancer Mother's Sister 70 [3] Current Facility-Administered Medications: acetaminophen (Tylenol) tablet 1,000 mg, 1,000 mg, Oral, q8h, Jamie Fling, DO, 1,000 mg at 11/13/24 0909 amLODIPine (Norvasc) tablet 5 mg, 5 mg, Oral, Daily, Jamie Fling, DO, 5 mg at 11/13/24 0908 collagenase 250 UNIT/GM ointment, , Topical, PRN, Jamie Fling, DO collagenase 250 UNIT/GM ointment, , Topical, Daily, Jamie Fling, DO HYDROmorphone (Dilaudid) injection 0.25 mg, 0.25 mg, IntraVENous, q4h PRN, Jamie Fling, DO, 0.25 mg at 11/12/24 2256 levETIRAcetam (Keppra) tablet 500 mg, 500 mg, Oral, Daily, Jamie Fling, DO, 500 mg at 11/13/24907 melatonin tablet 5 mg, 5 mg, Oral, Nightly, Jamie Fling, DO, 5 mg at 11/12/24 1920 naloxone (Narcan) injection 0.4 mg, 0.4 mg, IntraVENous, q5 min PRN, Jamie Fling, DO ondansetron ODT (Zofran-ODT) disintegrating tablet 4 mg, 4 mg, Oral, q8h PRN OR ondansetron (Zofran) injection 4 mg, 4 mg, IntraVENous, q6h PRN, Jamie Fling, DO oxyCODONE (Roxicodone) immediate release tablet 5 mg, 5 mg, Oral, q6h PRN, Jamie Fling, DO, 5 mg at 11/13/24 0622 polyethylene glycol (PEG) 3350 (Miralax) packet 17 g, 17 g, Oral, Daily PRN, Jamie Fling, DO sevelamer carbonate (Renvela) tablet 800 mg, 800 mg, Oral, TID WC, Jamie Fling, DO, 800 mg at 11/13/24907 silver nitrate applicator, , Topical, Once, Willie Erickson MD [4] acetaminophen, 1,000 mg, Oral, q8h amLODIPine, 5 mg, Oral, Daily collagenase, , Topical, Daily levETIRAcetam, 500 mg, Oral, Daily melatonin, 5 mg, Oral, Nightly sevelamer carbonate, 800 mg, Oral, TID WC silver nitrate, , Topical, Once [5] [6] PRN medications: collagenase, HYDROmorphone, naloxone, ondansetron ODT OR ondansetron, oxyCODONE, polyethylene glycol (PEG) 3350 [facility] 11-13-2024 Progress note Formatting of t his note might be different from the original. Patient is from a SNF. 30 day readmission is not warranted. [facility] 11-12-2024 Consult note Associated Order (s): IP CONSULT TO VASCULAR SURGERY Images from the original note were not included. Vascular Surgery Consultation Note Reason for Consult: LUE wound HISTORY OF PRESENT ILLNESS: The patient is a 74 y.o. female with PMHx hypertension, ESRD, seizure, hemodialysis (Wednesday, , Wednesday), [facility] AV graft placement (Dr. 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 Patient was admitted 10/22-11/11. During that time her graft was excised, she underwent repeat surgery for hematoma evacuation, infectious disease was consulted and recommended Bactrim renally dosed through November 13. She represented today at [facility] from shelter for bleeding from her LUE former graft site. She was transferred to [facility] for vascular surgery evaluation. Work up shows patient is afebrile, HDS on room air. WBC 10.9, Hgb 9.3 (7.0 on DC), plt 407, creatinine 3.37. IMPRESSION: 74 y.o. female w/ LUE AV graft site with concern for bleeding RECOMMENDATIONS: - No urgent operative intervention - After clinical evaluation, the patient has 3 incision sites, the middle incision site was left purposely open after patient's hematoma evacuation surgery. The site did have some blood clot, but does not appear to be actively bleeding at this time. - Site was packed with gauze and wrapped with Kerlix and Rosey wrap - Rest of management per medicine - Vascular will see patient tomorrow, anticipate patient should be ready for DC back to facility tomorrow after repeat evaluation - LAURA Jimenez skilled nursing professional for Dr. Fernandez Medical History[1] Surgical History[2] Current Medications: Continuous Meds[3] PRN Meds[4] Scheduled Meds[5] Allergies: Patient has no known allergies. Social History Socioeconomic History Marital status: Spouse name: Not on file Number of children: Not on file Years of education: Not on file Highest education level: Not on file Occupational History Not on file Tobacco Use Smoking status: Never Smokeless tobacco: Never Vaping Use Vaping status: Never Used Substance and Sexual Activity Alcohol use: Yes Alcohol/week: 2.0 standard drinks of alcohol Types: 2 Glasses of wine per week Comment: weekly Drug use: Never Sexual activity: Not on file Other Topics Concern Not on file Social History Narrative Not on file Social Drivers of Health Financial Resource Strain: Patient Unable To Answer (10/23/2024) Overall Financial Resource Strain (CARDIA) Difficulty of Paying Living Expenses: Patient unable to answer Food Insecurity: No Food Insecurity (10/31/2024) Hunger Vital Sign Worried About Running Out of Food in the Last Year: Never true Ran Out of Food in the Last Year: Never true Transportation Needs: No Transportation Needs (10/31/2024) PRAPARE - Transportation Lack of Transportation (Medical): No Lack of Transportation (Non-Medical): No Physical Activity: Not on file Stress: Not on file Social Connections: Not on file Intimate Partner Violence: Not At Risk (10/31/2024) Humiliation, Afraid, Rape, and Kick questionnaire Fear of Current or Ex-Partner: No Emotionally Abused: No Physically Abused: No Sexually Abused: No Housing Stability: Low Risk (10/31/2024) Housing Stability Vital Sign Unable to Pay for Housing in the Last Year: No Number of Times Moved in the Last Year: 0 Homeless in the Last Year: No Family History[6] REVIEW OF SYSTEMS: The chart was reviewed. Review of Systems Constitutional: Negative for chills and fever. HENT: Negative for congestion and drooling. Eyes: Negative for discharge and redness. Respiratory: Negative for cough and choking. Cardiovascular: Negative for chest pain and leg swelling. Gastrointestinal: Negative for nausea and vomiting. Musculoskeletal: Negative for neck pain and neck stiffness. Skin: Positive for wound. Negative for rash. Neurological: Negative for seizures and facial asymmetry. Psychiatric/Behavioral: Positive for confusion (Experiencing some mild hospital delerium). Negative for agitation. LABS: Lab Results Component Value Date CREATININE 3.37 (H) 11/12/2024 Lab Results Component Value Date WBC 10.9 (H) 11/12/2024 HGB 9.3 (L) 11/12/2024 HCT 29.0 (L) 11/12/2024 MCV 91.2 11/12/2024 PLT 407 11/12/2024 Lab Results Component Value Date INR 1.1 11/01/2024 INR 1.0 10/09/2024 INR 1.2 (H) 09/17/2024 PROTIME 11.8 11/01/2024 PROTIME 11.1 10/09/2024 PROTIME 12.3 (H) 09/17/2024 No results found for: VLDL PHYSICAL EXAM: Vitals: 11/12/24 1724 BP: 151/86 Pulse: 90 Resp: 18 Temp: 37 C (98.6 F) SpO2: 100% Physical Exam Constitutional: Appearance: Normal appearance. HENT: Head: Normocephalic and atraumatic. Right Ear: External ear normal. Left Ear: External ear normal. Nose: Nose normal. No congestion. Mouth/Throat: Mouth: Mucous membranes are moist. Pharynx: Oropharynx is clear. Eyes: Extraocular Movements: Extraocular movements intact. Pupils: Pupils are equal, round, and reactive to light. Cardiovascular: Rate and Rhythm: Normal rate and regular rhythm. Pulses: Normal pulses. Pulmonary: Effort: Pulmonary effort is normal. Breath sounds: Normal breath sounds. Abdominal: General: There is no distension. Palpations: Abdomen is soft. Musculoskeletal: Cervical back: Normal range of motion and neck supple. Right lower leg: No edema. Comments: LUE as pictures below, 3 incision sites, middle incision site purposely left open, with small amount of blood clot easily removed, no active bleeding Skin: General: Skin is warm and dry. Capillary Refill: Capillary refill takes less than 2 seconds. Neurological: Mental Status: She is alert. Comments: +Confused, asking if her phone is on the counter when it is not present, keeps thinking she is in her shelter Psychiatric: Mood and Affect: Mood normal. Behavior: Behavior normal. LABS: Lab Results Component Value Date WBC 10.9 (H) 11/12/2024 HGB 9.3 (L) 11/12/2024 HCT 29.0 (L) 11/12/2024 PLT 407 11/12/2024 PROTIME 11.8 11/01/2024 INR 1.1 11/01/2024 K 4.0 11/12/2024 BUN 15 11/12/2024 CREATININE 3.37 (H) 11/12/2024 VASCULAR TESTING: No new imaging this admission . [1] Past Medical History: Diagnosis Date Chronic kidney disease (CKD) Hemodialysis patient (CMS/HCC) (HCC) Wednesday, , Wednesday History of blood transfusion 02/27/2022 Hypertension Seizure ([facility]) Developed seizure-like activity on 02/24 during hospital admission [2] Past Surgical History: Procedure Laterality Date AV FISTULA PLACEMENT Left 08/07/2022 COLONOSCOPY N/A 01/25/2024 Performed by Chrissy Gilman MD at [facility] ENDOSCOPY IR CVC TUNNELED DIALYSIS CATHETER PLACEMENT 02/27/2022 IR CVC TUNNELED CATHETER PLACEMENT 02/27/2022 Candis Andrade MD [facility] SPECIAL PROCEDURES IR EMBOLIZATION 01/24/2024 IR EMBOLIZATION 01/24/2024 Jovan Glynn MD [facility] SPECIAL PROCEDURES [3] [4] PRN medications: collagenase, HYDROmorphone, naloxone, ondansetron ODT OR ondansetron, oxyCODONE, polyethylene glycol (PEG) 3350 [5] acetaminophen, 1,000 mg, Oral, q8h [START ON 11/13/2024] amLODIPine, 5 mg, Oral, Daily [START ON 11/13/2024] collagenase, , Topical, Daily [START ON 11/13/2024] levETIRAcetam, 500 mg, Oral, Daily melatonin, 5 mg, Oral, Nightly [START ON 11/13/2024] sevelamer carbonate, 800 mg, Oral, TID WC [START ON 11/13/2024] sulfamethoxazole-trimethoprim, 1 tablet, Oral, Daily [6] Family History Problem Relation Name Age of Onset Dementia Mother Stroke Father Prostate cancer Brother 69 Breast cancer Cousin 32 Stomach cancer Mother's Sister 70 Cosigned by Dee Jimenez MD at 11/13/2024 11:14 AM EDT [facility] Work Phone: 11-12-2024 History and physical note Attending History and Physical Admit Date: 11/12/2024 PCP: Roxie Spain CHIEF COMPLAINT: Left upper extremity wound Reason for Admission: Left upper extremity graft site complication History Obtained From: patient HISTORY OF PRESENT ILLNESS: Apoorva is a 74 y.o. female with past medical history below who presents with chief complaint listed above. She presents as a direct transfer from [facility] due to complications of left upper extremity graft. She was recently admitted and discharged on 11/11 in the afternoon. She notes that since being home had drainage of left upper extremity site. She had excision of left upper extremity calf on November 02, 2024. Seen by infectious disease during that hospitalization and plan for course of Bactrim renally dosed through November 13. She had evacuation of a hematoma on November 05, 2024. On evaluation at [facility] ER she was noted to have a white count of 10.9 (down trended from 12.6 the day prior. Hemoglobin 9.3 (increased from 7.0 the day prior). BMP grossly unremarkable for ESRD patient. ED physician at [facility] discussed with vascular surgery and plan for admit with vascular surgery consult. Case discussed with [place] emergency room physician and will plan to admit for further evaluation and management. Past Medical History: Medical History[1] Past Surgical History: Surgical History[2] Social History: Social History Socioeconomic History Marital status: Spouse name: Not on file Number of children: Not on file Years of education: Not on file Highest education level: Not on file Occupational History Not on file Tobacco Use Smoking status: Never Smokeless tobacco: Never Vaping Use Vaping status: Never Used Substance and Sexual Activity Alcohol use: Yes Alcohol/week: 2.0 standard drinks of alcohol Types: 2 Glasses of wine per week Comment: weekly Drug use: Never Sexual activity: Not on file Other Topics Concern Not on file Social History Narrative Not on file Social Drivers of Health Financial Resource Strain: Patient Unable To Answer (10/23/2024) Overall Financial Resource Strain (CARDIA) Difficulty of Paying Living Expenses: Patient unable to answer Food Insecurity: No Food Insecurity (10/31/2024) Hunger Vital Sign Worried About Running Out of Food in the Last Year: Never true Ran Out of Food in the Last Year: Never true Transportation Needs: No Transportation Needs (10/31/2024) PRAPARE - Transportation Lack of Transportation (Medical): No Lack of Transportation (Non-Medical): No Physical Activity: Not on file Stress: Not on file Social Connections: Not on file Intimate Partner Violence: Not At Risk (10/31/2024) Humiliation, Afraid, Rape, and Kick questionnaire Fear of Current or Ex-Partner: No Emotionally Abused: No Physically Abused: No Sexually Abused: No Housing Stability: Low Risk (10/31/2024) Housing Stability Vital Sign Unable to Pay for Housing in the Last Year: No Number of Times Moved in the Last Year: 0 Homeless in the Last Year: No Family History: Family History[3] Medications Prior to Admission: Current Medications[4] Medications Reconciliation: Medication were reviewed and verified as accurate with patient. Allergies: Allergies[5] REVIEW OF SYSTEMS: 10 point ROS obtained, as per HPI, otherwise NEG Vitals: BP 151/86 (BP Location: Right arm) Pulse 90 Temp 37 C (98.6 F) Resp 18 Ht 5' 4 (1.626 m) Wt 117 lb (53.1 kg) SpO2 100% BMI 20.08 kg/m BMI Classification: Normal Weight (BMI 18.5-24.9) Pulse Ox: SpO2 Av.7 % Min: 99 % Max: 100 % Supplemental O2: PHYSICAL EXAM: Physical Exam Constitutional: General: She is not in acute distress. Cardiovascular: Rate and Rhythm: Normal rate. Pulmonary: Effort: No respiratory distress. Abdominal: Palpations: Abdomen is soft. Tenderness: There is no abdominal tenderness. There is no guarding. Musculoskeletal: Right lower leg: No edema. Left lower leg: No edema. Comments: Left upper extremity site currently in dressing, images reviewed in media. Pulses 2+ in left upper extremity. Neurological: Mental Status: She is alert. DATA: CBC: Recent Labs 11/10/2421711/11/24 0539 11/12/24 1450 WBC 13.2* 12.6* 10.9* RBC 2.43* 2.39* 3.18* HGB 7.0* 7.0* 9.3* HCT 21.6* 21.8* 29.0* MCV 88.9 91.2 91.2 RDW 16.9* 17.1* 17.0* PLT 382 480* 407 BMP: Recent Labs 11/10/2421711/11/2439 11/12/24 1525 NA 134* 138 140 K 4.0 4.5 4.0 CL 103 105 104 CO2 26 24 24 BUN 16 26* 15 CREATININE 2.81* 4.23* 3.37* GLUCOSE 67* 67* 78* CALCIUM 7.6* 7.3* 8.1* ANIONGAP 5 9 12 LIVER PROFILE:No results for input(s): AST, ALT, BILITOT, ALKPHOS, PROT in the last 72 hours. No lab exists for component: LABALBU PT/INR: No results for input(s): PROTIME, INR in the last 72 hours. CARDIAC ENZYMES: No results for input(s): TROPONINI in the last 72 hours. Procalcitonin: No results found for: PROCAL Urine Culture: No results found for this or any previous visit. COVID-19 PCR: No results for input(s): COVID19 in the last 72 hours. I reviewed: [x] laboratory results [x] radiographic results At the time of today's encounter. Pt was advised of the results. Data: (CAT1) Reviewed 2 notes from different specialty or health system (each=1). (CAT1) Reviewed 3 or more labs/studies ordered by another provider not previously counted (each=1, panels count as 1). (LOW: 2x CAT1 or independent historian MOD: 3x CAT1 or 1x CAT3 EXTENSIVE: 3x CAT1 and 1x CAT3) Assessment Discussed management with the ED provider and agree with hospitalization. Acute, acute on chronic, unstable/uncontrolled chronic problems/diagnoses: Complications of left upper extremity graft Leukocytosis-improving Acute blood loss anemia-stable Stable chronic problems affecting care, new non-acute diagnoses: ESRD on hemodialysis-nephrology following Hx of recent covid infection Hx of infected hematoma status post I&D Seizure History-cont keppra Hx of recent c dif infection Hx of recent Enterobacter cloacae/ Kleb pneumo/ Kleb oxytoca/ VR-Enterococcus casseliflavus Septic shock-resolved Hypertension-continue amlodipine Plan As a result of the above findings & factors, the following mgmt was pursued: - Admit to medicine -Vascular surgery consulted regarding left upper extremity site. Keep NPO. Will finish course of Bactrim tomorrow, leukocytosis improving. -Nephrology consulted regarding ESRD on intermittent hemodialysis Wednesday. -Oxycodone 5 mg and Dilaudid 0.25 mg for pain control. - am labs, replace lytes prn - PT/OT/CM/SW - delirium precautions: increase activity, limit nighttime disturbances, and avoid anticholinergic meds, benzos, etc - DVT prophylaxis: SCDs and encourage ambulation Complexity: Acute, complicated injury (MOD). Risk: Admission to hospital-level care was considered or occurred (HIGH). Advance Directive: DNR-CCA Anticipated Discharge - Date -11/13 - Location -TBD - Pending the following -vascular surgery recommendations Total time spent (which include face to face and non face to face encounters) : 53 minutes. Extended Emergency Contact Information Primary Emergency Contact: Deshawn Crystal Mobile Relation: Brother Technical Coordinator needed? No Secondary Emergency Contact: Edward Ruggiero Mobile Relation: Significant Other Preferred language: Cambodian Technical Coordinator needed? No AD[employer]ING Apoorva Navarro Raj[place] : 1950 Primary Care Physician: Roxie Spain The patient and/or family/surrogate voluntarily agreed to participate in ACP services. Patient s cognitive capacity: Intact Code Status: [_] [FULL CODE - Continue all advanced life support: CPR,intubation,invasive procedures] [X_] [DNR-CCA - DO NOT do CPR, intubation] [_] [DNR-CDL SERVICE TECHNICIAN - Comfort care only] [_] DNR form [was/was not] signed Summary of discussion: The patient health care POA/ surrogate is the following: As above. [Condition that instigated the ACP on this DOS, relevant PMH, functional status, goals of care, and whom this was discussed with including names and relationship to the patient, and any relevant advance care documentation discussion] I answered all the patient/family questions that I could within the range and scope of the current medical situation. We discussed the medical conditions, risks, benefits, outcomes, and goals of care at this time for the patient's medical issues at hand in the face of the patient's chronic issues and current presentation. Total time spent: 3 minutes were spent discussing the patient's resuscitation status, advance care planning, and end of life care, with patient and/or family/surrogate. Jamie Camarena DO Division of Hospitalist Medicine [facility] [1] Past Medical History: Diagnosis Date Chronic kidney disease (CKD) Hemodialysis patient (CMS/HCC) (HCC) Wednesday, , Wednesday History of blood transfusion 02/27/2022 Hypertension Seizure ([facility]) Developed seizure-like activity on 02/24 during hospital admission [2] Past Surgical History: Procedure Laterality Date AV FISTULA PLACEMENT Left 08/07/2022 COLONOSCOPY N/A 01/25/2024 Performed by Chrissy Gilman MD at [facility] ENDOSCOPY IR CVC TUNNELED DIALYSIS CATHETER PLACEMENT 02/27/2022 IR CVC TUNNELED CATHETER PLACEMENT 02/27/2022 Candis Andrade MD [facility] SPECIAL PROCEDURES IR EMBOLIZATION 01/24/2024 IR EMBOLIZATION 01/24/2024 Jovan Glynn MD [facility] SPECIAL PROCEDURES [3] Family History Problem Relation Name Age of Onset Dementia Mother Stroke Father Prostate cancer Brother 69 Breast cancer Cousin 32 Stomach cancer Mother's Sister 70 [4] Current Facility-Administered Medications: acetaminophen (Tylenol) tablet 650 mg, 650 mg, Oral, q6h PRN OR acetaminophen (Tylenol) suppository 650 mg, 650 mg, Rectal, q6h PRN, Jamie Camarena DO acetaminophen (Tylenol) tablet 1,000 mg, 1,000 mg, Oral, q8h, Jamie Camarena DO [START ON 11/13/2024] amLODIPine (Norvasc) tablet 5 mg, 5 mg, Oral, Daily, Jamie Camarena, DO collagenase 250 UNIT/GM ointment, , Topical, PRN, Jamie Camarena, DO [START ON 11/13/2024] collagenase 250 UNIT/GM ointment, , Topical, Daily, Jamie Camarena, DO HYDROmorphone (Dilaudid) injection 0.25 mg, 0.25 mg, IntraVENous, q4h PRN, Jamie Camarena DO [START ON 11/13/2024] levETIRAcetam (Keppra) tablet 500 mg, 500 mg, Oral, Daily, Jamie Camarena DO melatonin tablet 5 mg, 5 mg, Oral, Nightly, Jamie Camarena, ondansetron ODT (Zofran-ODT) disintegrating tablet 4 mg, 4 mg, Oral, q8h PRN OR ondansetron (Zofran) injection 4 mg, 4 mg, IntraVENous, q6h PRN, Jamie Camarena DO oxyCODONE (Roxicodone) immediate release tablet 5 mg, 5 mg, Oral, q6h PRN, Jamie Camarena DO polyethylene glycol (PEG) 3350 (Miralax) packet 17 g, 17 g, Oral, Daily PRN, Jamie Camarena DO [START ON 11/13/2024] sevelamer carbonate (Renvela) tablet 800 mg, 800 mg, Oral, TID WC, Jamie Camarena DO [START ON 11/13/2024] sulfamethoxazole-trimethoprim (Bactrim DS) 800-160 MG per tablet 1 tablet, 1 tablet, Oral, Daily, Jamie Camarena DO [5] No Known Allergies [employer] Work Phone: 11-12-2024 Note [employer] [facility] 11-12-2024 History and physical note Attending History and Physical Admit Date: 11/12/2024 PCP: Roxie Spain CHIEF COMPLAINT: Left upper extremity wound Reason for Admission: Left upper extremity graft site complication History Obtained From: patient HISTORY OF PRESENT ILLNESS: Apoorva is a 74 y.o. female with past medical history below who presents with chief complaint listed above. She presents as a direct transfer from [facility] due to complications of left upper extremity graft. She was recently admitted and discharged on 11/11 in the afternoon. She notes that since being home had drainage of left upper extremity site. She had excision of left upper extremity calf on November 02, 2024. Seen by infectious disease during that hospitalization and plan for course of Bactrim renally dosed through November 13. She had evacuation of a hematoma on November 05, 2024. On evaluation at [facility] ER she was noted to have a white count of 10.9 (down trended from 12.6 the day prior. Hemoglobin 9.3 (increased from 7.0 the day prior). BMP grossly unremarkable for ESRD patient. ED physician at [facility] discussed with vascular surgery and plan for admit with vascular surgery consult. Case discussed with [place] emergency room physician and will plan to admit for further evaluation and management. Past Medical History: Medical History[1] Past Surgical History: Surgical History[2] Social History: Social History Socioeconomic History Marital status: Spouse name: Not on file Number of children: Not on file Years of education: Not on file Highest education level: Not on file Occupational History Not on file Tobacco Use Smoking status: Never Smokeless tobacco: Never Vaping Use Vaping status: Never Used Substance and Sexual Activity Alcohol use: Yes Alcohol/week: 2.0 standard drinks of alcohol Types: 2 Glasses of wine per week Comment: weekly Drug use: Never Sexual activity: Not on file Other Topics Concern Not on file Social History Narrative Not on file Social Drivers of Health Financial Resource Strain: Patient Unable To Answer (10/23/2024) Overall Financial Resource Strain (CARDIA) Difficulty of Paying Living Expenses: Patient unable to answer Food Insecurity: No Food Insecurity (10/31/2024) Hunger Vital Sign Worried About Running Out of Food in the Last Year: Never true Ran Out of Food in the Last Year: Never true Transportation Needs: No Transportation Needs (10/31/2024) PRAPARE - Transportation Lack of Transportation (Medical): No Lack of Transportation (Non-Medical): No Physical Activity: Not on file Stress: Not on file Social Connections: Not on file Intimate Partner Violence: Not At Risk (10/31/2024) Humiliation, Afraid, Rape, and Kick questionnaire Fear of Current or Ex-Partner: No Emotionally Abused: No Physically Abused: No Sexually Abused: No Housing Stability: Low Risk (10/31/2024) Housing Stability Vital Sign Unable to Pay for Housing in the Last Year: No Number of Times Moved in the Last Year: 0 Homeless in the Last Year: No Family History: Family History[3] Medications Prior to Admission: Current Medications[4] Medications Reconciliation: Medication were reviewed and verified as accurate with patient. Allergies: Allergies[5] REVIEW OF SYSTEMS: 10 point ROS obtained, as per HPI, otherwise NEG Vitals: BP 151/86 (BP Location: Right arm) Pulse 90 Temp 37 C (98.6 F) Resp 18 Ht 5' 4 (1.626 m) Wt 117 lb (53.1 kg) SpO2 100% BMI 20.08 kg/m BMI Classification: Normal Weight (BMI 18.5-24.9) Pulse Ox: SpO2 Av.7 % Min: 99 % Max: 100 % Supplemental O2: PHYSICAL EXAM: Physical Exam Constitutional: General: She is not in acute distress. Cardiovascular: Rate and Rhythm: Normal rate. Pulmonary: Effort: No respiratory distress. Abdominal: Palpations: Abdomen is soft. Tenderness: There is no abdominal tenderness. There is no guarding. Musculoskeletal: Right lower leg: No edema. Left lower leg: No edema. Comments: Left upper extremity site currently in dressing, images reviewed in media. Pulses 2+ in left upper extremity. Neurological: Mental Status: She is alert. DATA: CBC: Recent Labs 11/10/24 0218 11/11/24 0539 11/12/24 1450 WBC 13.2* 12.6* 10.9* RBC 2.43* 2.39* 3.18* HGB 7.0* 7.0* 9.3* HCT 21.6* 21.8* 29.0* MCV 88.9 91.2 91.2 RDW 16.9* 17.1* 17.0* PLT 382 480* 407 BMP: Recent Labs 11/10/24 0218 11/11/24 0539 11/12/24 1525 NA 134* 138 140 K 4.0 4.5 4.0 CL 103 105 104 CO2 26 24 24 BUN 16 26* 15 CREATININE 2.81* 4.23* 3.37* GLUCOSE 67* 67* 78* CALCIUM 7.6* 7.3* 8.1* ANIONGAP 5 9 12 LIVER PROFILE:No results for input(s): AST, ALT, BILITOT, ALKPHOS, PROT in the last 72 hours. No lab exists for component: LABALBU PT/INR: No results for input(s): PROTIME, INR in the last 72 hours. CARDIAC ENZYMES: No results for input(s): TROPONINI in the last 72 hours. Procalcitonin: No results found for: PROCAL Urine Culture: No results found for this or any previous visit. COVID-19 PCR: No results for input(s): COVID19 in the last 72 hours. I reviewed: [x] laboratory results [x] radiographic results At the time of today's encounter. Pt was advised of the results. Data: (CAT1) Reviewed 2 notes from different specialty or health system (each=1). (CAT1) Reviewed 3 or more labs/studies ordered by another provider not previously counted (each=1, panels count as 1). (LOW: 2x CAT1 or independent historian MOD: 3x CAT1 or 1x CAT3 EXTENSIVE: 3x CAT1 and 1x CAT3) Assessment Discussed management with the ED provider and agree with hospitalization. Acute, acute on chronic, unstable/uncontrolled chronic problems/diagnoses: Complications of left upper extremity graft Leukocytosis-improving Acute blood loss anemia-stable Stable chronic problems affecting care, new non-acute diagnoses: ESRD on hemodialysis-nephrology following Hx of recent covid infection Hx of infected hematoma status post I&D Seizure History-cont keppra Hx of recent c dif infection Hx of recent Enterobacter cloacae/ Kleb pneumo/ Kleb oxytoca/ VR-Enterococcus casseliflavus Septic shock-resolved Hypertension-continue amlodipine Plan As a result of the above findings & factors, the following mgmt was pursued: - Admit to medicine -Vascular surgery consulted regarding left upper extremity site. Keep NPO. Will finish course of Bactrim tomorrow, leukocytosis improving. -Nephrology consulted regarding ESRD on intermittent hemodialysis Wednesday. -Oxycodone 5 mg and Dilaudid 0.25 mg for pain control. - am labs, replace lytes prn - PT/OT/CM/SW - delirium precautions: increase activity, limit nighttime disturbances, and avoid anticholinergic meds, benzos, etc - DVT prophylaxis: SCDs and encourage ambulation Complexity: Acute, complicated injury (MOD). Risk: Admission to hospital-level care was considered or occurred (HIGH). Advance Directive: DNR-CCA Anticipated Discharge - Date -11/13 - Location -TBD - Pending the following -vascular surgery recommendations Total time spent (which include face to face and non face to face encounters) : 53 minutes. Extended Emergency Contact Information Primary Emergency Contact: Deshawn Crystal Mobile Relation: Brother Technical Coordinator needed? No Secondary Emergency Contact: Edward Ruggiero Mobile Relation: Significant Other Preferred language: Cambodian Technical Coordinator needed? No ADVANCED CARE PLANNING Apoorva Navarro [place] : 1950 Primary Care Physician: Roxie Spain The patient and/or family/surrogate voluntarily agreed to participate in ACP services. Patient s cognitive capacity: Intact Code Status: [_] [FULL CODE - Continue all advanced life support: CPR,intubation,invasive procedures] [X_] [DNR-CCA - DO NOT do CPR, intubation] [_] [DNR-CDL SERVICE TECHNICIAN - Comfort care only] [_] DNR form [was/was not] signed Summary of discussion: The patient health care POA/ surrogate is the following: As above. [Condition that instigated the ACP on this DOS, relevant PMH, functional status, goals of care, and whom this was discussed with including names and relationship to the patient, and any relevant advance care documentation discussion] I answered all the patient/family questions that I could within the range and scope of the current medical situation. We discussed the medical conditions, risks, benefits, outcomes, and goals of care at this time for the patient's medical issues at hand in the face of the patient's chronic issues and current presentation. Total time spent: 3 minutes were spent discussing the patient's resuscitation status, advance care planning, and end of life care, with patient and/or family/surrogate. Jamie Camarena DO Division of Hospitalist Medicine [facility] [1] Past Medical History: Diagnosis Date Chronic kidney disease (CKD) Hemodialysis patient (CMS/HCC) (HCC) Wednesday, , Wednesday History of blood transfusion 02/27/2022 Hypertension Seizure (HCC) Developed seizure-like activity on 02/24 during hospital admission [2] Past Surgical History: Procedure Laterality Date AV FISTULA PLACEMENT Left 08/07/2022 COLONOSCOPY N/A 01/25/2024 Performed by Chrissy Gilman MD at [facility] ENDOSCOPY IR CVC TUNNELED DIALYSIS CATHETER PLACEMENT 02/27/2022 IR CVC TUNNELED CATHETER PLACEMENT 02/27/2022 Candis Andrade MD [facility] SPECIAL PROCEDURES IR EMBOLIZATION 01/24/2024 IR EMBOLIZATION 01/24/2024 Jovan Glynn MD [facility] SPECIAL PROCEDURES [3] Family History Problem Relation Name Age of Onset Dementia Mother Stroke Father Prostate cancer Brother 69 Breast cancer Cousin 32 Stomach cancer Mother's Sister 70 [4] Current Facility-Administered Medications: acetaminophen (Tylenol) tablet 650 mg, 650 mg, Oral, q6h PRN OR acetaminophen (Tylenol) suppository 650 mg, 650 mg, Rectal, q6h PRN, Jamie Camarena DO acetaminophen (Tylenol) tablet 1,000 mg, 1,000 mg, Oral, q8h, Jamie Camarena DO [START ON 11/13/2024] amLODIPine (Norvasc) tablet 5 mg, 5 mg, Oral, Daily, Jamie Camarena DO collagenase 250 UNIT/GM ointment, , Topical, PRN, Jamie Camarena, [START ON 11/13/2024] collagenase 250 UNIT/GM ointment, , Topical, Daily, Jamie Camarena DO HYDROmorphone (Dilaudid) injection 0.25 mg, 0.25 mg, IntraVENous, q4h PRN, Jamie Camarena DO [START ON 11/13/2024] levETIRAcetam (Keppra) tablet 500 mg, 500 mg, Oral, Daily, Jamie Camarena DO melatonin tablet 5 mg, 5 mg, Oral, Nightly, Jamie Camarena DO ondansetron ODT (Zofran-ODT) disintegrating tablet 4 mg, 4 mg, Oral, q8h PRN OR ondansetron (Zofran) injection 4 mg, 4 mg, IntraVENous, q6h PRN, Jamie Camarena DO oxyCODONE (Roxicodone) immediate release tablet 5 mg, 5 mg, Oral, q6h PRN, Jamie Camarena DO polyethylene glycol (PEG) 3350 (Miralax) packet 17 g, 17 g, Oral, Daily PRN, Jamie Camarena DO [START ON 11/13/2024] sevelamer carbonate (Renvela) tablet 800 mg, 800 mg, Oral, TID WC, Jamie Camarena DO [START ON 11/13/2024] sulfamethoxazole-trimethoprim (Bactrim DS) 800-160 MG per tablet 1 tablet, 1 tablet, Oral, Daily, Jamie Camarena DO [5] No Known Allergies documented in this encounter [facility] 11-12-2024 Emergency department Note Moody Harman at bedside for transport to [facility] for admission. Packet/blue card sent with crew. [facility] 11-12-2024 Emergency department Note Moody Harman at bedside for transport to [facility] for admission. Packet/blue card sent with crew. Report called to [facility]. Pt awaiting transport, resting comfortably at this time, side rails up x2, curtain remains open for safety. Emergency Department Encounter [facility] ED Patient: Apoorva Gonzalez : 1950 Date of Evaluation: 11/12/2024 ED Supervising Physician: Lorna Moore MD I independently examined and evaluated Apoorva Gonzalez. THIS IS MY SUPERVISORY AND SHARED VISIT NOTE: I personally saw the patient and made/approved the management plan and take responsibility for the patient management. In brief, Apoorva Gonzalez is a 74 y.o. female that presents to the emergency department for a wound dehiscence. The patient's left upper extremity fistula wound dehisced this morning. Focused exam: Patient chronically ill-appearing. Incisions to the left upper extremity, both of which have dehisced, with a large area to the superior incision, measuring roughly 2 cm of dehiscence and 1 cm of dehiscence to the lower incision. There is a palpable thrill proximal to the most superior incision. Brief ED course/MDM: EMERGENCY DEPARTMENT COURSE and DIFFERENTIAL DIAGNOSIS/MDM: Vitals: Vitals: 11/12/24 1254 BP: (!) 143/83 BP Location: Right arm Patient Position: Lying Pulse: 95 Resp: 16 Temp: 37.2 C (98.9 F) TempSrc: Oral SpO2: 100% Weight: 53.1 kg (117 lb) Height: 1.626 m (5' 4) The patient presented with a chief complaint of wound dehiscence The differential diagnosis associated with this patient's presentation includes but is not limited to: Presentation concerning for wound dehiscence I reviewed external records from: PDMP demonstrating 1 prescription, for oxycodone. I also reviewed discharge summary from yesterday when the patient was admitted with concern that her fistula was infected. She had an incision of the left upper extremity infected graft on November 02 and was having some bleeding November 04 and , and then had an ex lap of the left upper extremity with evacuation of the hematoma on November 05. Vascular surgery did remove a few sutures from her incisions recently and evacuated a 50 cc old clot and irrigated this without any further bleeding, just some oozing and there was improvement with the swelling Patient care discussed with Dr. Jimenez, vascular surgeon, who agrees with plan to admit the patient to medicine at [facility], and will see her inpatient. Patient care also discussed with Dr. Camarena, [facility] hospitalist, who accepted the patient for transfer. ED Medications managed: Medications - No data to display CRITICAL CARE TIME None All diagnostic, treatment, and disposition decisions were made by myself in conjunction with the Resident or CRISTO. I also supervised saavedra portions of any procedures performed by the Resident. For all further details of the patient's emergency department visit, please see their documentation. (Comment: Please note this report has been produced using speech recognition software and may contain errors related to that system including errors in grammar, punctuation, and spelling, as well as words and phrases that may be inappropriate. If there are any questions or concerns please feel free to contact the dictating provider for clarification.) Lorna Moore MD [facility] Roz Moore MD 11/12/24 1444 documented in this encounter [facility] 11-12-2024 Emergency department Note Report called to [facility]. Pt awaiting transport, resting comfortably at this time, side rails up x2, curtain remains open for safety. [facility] 11-12-2024 Physician Emergency department Note Emergency Department Encounter [facility] ED Patient: Apoorva Gonzalez : 1950 Date of Evaluation: 11/12/2024 ED Supervising Physician: Lorna Moore MD I independently examined and evaluated Apoorva Gonzalez. THIS IS MY SUPERVISORY AND SHARED VISIT NOTE: I personally saw the patient and made/approved the management plan and take responsibility for the patient management. In brief, Apoorva Gonzalez is a 74 y.o. female that presents to the emergency department for a wound dehiscence. The patient's left upper extremity fistula wound dehisced this morning. Focused exam: Patient chronically ill-appearing. Incisions to the left upper extremity, both of which have dehisced, with a large area to the superior incision, measuring roughly 2 cm of dehiscence and 1 cm of dehiscence to the lower incision. There is a palpable thrill proximal to the most superior incision. Brief ED course/MDM: EMERGENCY DEPARTMENT COURSE and DIFFERENTIAL DIAGNOSIS/MDM: Vitals: Vitals: 11/12/24 1254 BP: (!) 143/83 BP Location: Right arm Patient Position: Lying Pulse: 95 Resp: 16 Temp: 37.2 C (98.9 F) TempSrc: Oral SpO2: 100% Weight: 53.1 kg (117 lb) Height: 1.626 m (5' 4) The patient presented with a chief complaint of wound dehiscence The differential diagnosis associated with this patient's presentation includes but is not limited to: Presentation concerning for wound dehiscence I reviewed external records from: PDMP demonstrating 1 prescription, for oxycodone. I also reviewed discharge summary from yesterday when the patient was admitted with concern that her fistula was infected. She had an incision of the left upper extremity infected graft on November 02 and was having some bleeding November 04 and , and then had an ex lap of the left upper extremity with evacuation of the hematoma on November 05. Vascular surgery did remove a few sutures from her incisions recently and evacuated a 50 cc old clot and irrigated this without any further bleeding, just some oozing and there was improvement with the swelling Patient care discussed with Dr. Jimenez, vascular surgeon, who agrees with plan to admit the patient to medicine at [facility], and will see her inpatient. Patient care also discussed with Dr. Camarena, [facility] hospitalist, who accepted the patient for transfer. ED Medications managed: Medications - No data to display CRITICAL CARE TIME None All diagnostic, treatment, and disposition decisions were made by myself in conjunction with the Resident or CRISTO. I also supervised saavedra portions of any procedures performed by the Resident. For all further details of the patient's emergency department visit, please see their documentation. (Comment: Please note this report has been produced using speech recognition software and may contain errors related to that system including errors in grammar, punctuation, and spelling, as well as words and phrases that may be inappropriate. If there are any questions or concerns please feel free to contact the dictating provider for clarification.) Lorna Moore MD [employer] Roz Moore MD 11/12/24 1444 [facility] 11-11-2024 Nurse Note [facility] dc [facility] Called report to geraldine at [facility]. Pt brother at bedside aware of dc. Patient Name: Apoorva Gonzalez Patient : 1950 Acct: [id number] Date of Admission: 10/22/2024 Room/Bed: [facility] A Code Status: DNR-CCA Allergies: Allergies[1] Diagnosis: Problem List[2] Treatment: Hemodialysis 1:1 Priority: Routine Location: Bedside Diabetic: No NPO: No Isolation Precautions: Contact Consent for Treatment Verified: Yes Blood Consent Verified: Not Applicable ICEBOAT: Identify, Consent, Equipment, HepB Status, Orders Complete, Access Verified, Timeliness Second Clinician Verifying: Mona La RN Time out performed prior to access at 0941. Report Received from Primary RN at 0835. Primary RN (First Initial, Last Name, Title): Mona La RN Incapacitated Nurse Education Completed: Yes BJ HBsAg ONLY: Date Drawn: September 15, 2024 Results: Negative HBsAb: Date Drawn: September 15, 2024 Results: Immune >10 Order Dialyzer: Nipro Na+ Modeling: Not Applicable Dialysate Temperature (C): 36 Blood Flow Rate (BFR): 400 Dialysate Flow Rate (DFR): 600 Access to be Utilized Access: Tunneled Catheter Location: Internal Jugular Side: Left Needle gauge: Not Applicable + Bruit/Thrill: Not Applicable First Use X-ray Verified: Not Applicable OK to use line order: Yes Site Assessment: Signs and Symptoms of Infection/Inflammation: None If yes: Not Applicable Dressing: Dry and Intact Site Prep: Medical Aseptic Technique Dressing Changed this Treatment: No If yes, by whom: NA - not changed today Date of Last Dressing Change: November 09, [address]?: Yes Red Alcohol Caps in place?: Yes Gauze Dressing?: No Non-Dialysis Use?: No Comment: Flows: Good and Patent If access problem, who was notified: Pre and Post-Assessment Patient Vitals for the past 8 hrs: Level of Consciousness Oriented X Heart Rhythm O2 Device Bilateral Breath Sounds Skin Condition/Temp Abdomen Inspection Bowel Sounds (All Quadrants) Edema RUE Edema RLE Edema LLE Edema Pre-Hemodialysis Comments 11/11/24 0936 Alert (0) 3 Regular None (Room air) Diminished Warm;Dry Soft Active Left upper extremity None None None Patient is agreeable to dialysis. Consent verified by this RN. 11/11/24 1312 Alert (0) 3 Regular None (Room air) Diminished Warm;Dry Soft Active Left upper extremity -- -- -- -- Labs Lab Results Component Value Date/Time WBC 12.6 (H) 11/11/2024 0539 HGB 7.0 (L) 11/11/2024 0539 HGB 9.1 10/05/2024 1419 HCT 21.8 (L) 11/11/2024 0539 PLT 480 (H) 11/11/2024 0539 NA 138 11/11/2024 0539 K 4.5 11/11/2024 0539 CL 105 11/11/2024 0539 CO2 24 11/11/2024 0539 BUN 26 (H) 11/11/2024 05 CREATININE 4.23 (H) 11/11/2024 0539 CALCIUM 7.3 (L) 11/11/2024 0539 PHOS 2.7 10/26/2024 0657 IV Drips and Rate/Dose Continuous Meds[3] Safety - Before each treatment: Dialysis Machine No.: [id number] RO Machine Number: [id number] Dialyzer Lot No.: [id number] Tubing Lot Number: [id number] All Connections Secure: Yes Venous Parameters Set: Yes Arterial Parameters Set: Yes NS Bag: Yes Saline Line Double Clamped: Yes Dialyzer: Nipro Prime Volume (mL): 200 mL RO Machine Number: [id number] RO Machine Log Sheet Completed: Yes Machine Alarm Self Test: Completed, Passed (The machine passed all tests at 0925) (11/11/24 0936) Air Foam Detector: Tested, Proper Function Extracorporeal Circuit Tested for Integrity: Yes Machine Conductivity: 13.9 Manual Conductivity: 14.2 Manual Ph: 7.4 Bleach Test (Neg): Yes Bath Temperature: 36 C (96.8 F) Conductivity Meter Serial #: [id number] Machine Functioning Alarm Free? Yes Dialysis Bath: K+ (Potassium): 2 Ca+ (Calcium): 2.5 Na+ (Sodium): 138 HCO3 (Bicarb): 32 Bicarbonate Concentrate Lot No.: [id number] Acid Concentrate Lot No.: [id number] Chlorine Testing - Before each treatment and every 4 hours: Time On: 0946 Time Off: 1302 Treatment Goal: 1L Weight Height: 162.6 cm (5' 4) (10/26/24 1438) Weight: 53.2 kg (117 lb 4.6 oz) (11/10/24 06) BMI (Calculated): 20.12 (11/10/24599) 1st check: less than 0.1 ppm at: 0922 2nd check: less than 0.1 ppm at: 1105 3rd check: Not Applicable (if greater than 0.1 ppm, then check every 30 minutes from secondary) Access Flows and Pressures Patient Vitals for the past 8 hrs: Blood Flow Rate (mL/min) Ultrafiltration Rate (ml/hr) Arterial Pressure (mmHg) Venous Pressure (mmHg) TMP DFR Access Visible Intra-Hemodialysis Comments 11/11/24 0946 200 mL/min 500 ml/hr -30 mmHg 50 mmHg 130 600 Yes Treatment initiated. All lines secured, bed is in locked and lowest position, and call light is within the patient's reach 11/11/24 0948 400 mL/min 500 ml/hr -100 mmHg 80 mmHg 90 600 Yes BFR to 400, UF removed- 57 11/11/24 1000 400 mL/min 500 ml/hr -100 mmHg 70 mmHg 90 600 Yes Primary RN at bedsided to administer pain medication. UF Removed- 130 11/11/24 1015 400 mL/min 500 ml/hr -100 mmHg 80 mmHg 90 600 Yes Patient resting, UF Removed- 277 11/11/24 1030 400 mL/min 500 ml/hr -100 mmHg 100 mmHg 90 600 Yes Patient resting, UF Removed- 374 11/11/24 1045 400 mL/min 500 ml/hr -100 mmHg 110 mmHg 90 600 Yes Patient resting, UF Removed- 483 11/11/24 1100 400 mL/min 500 ml/hr -100 mmHg 130 mmHg 60 600 Yes Bicarb changed. Patient resting, UF Removed- 636 11/11/24 1115 400 mL/min -- -110 mmHg 140 mmHg 60 600 -- Patient resting, UF Removed- 736 11/11/24 1130 400 mL/min 500 ml/hr -110 mmHg 160 mmHg 90 600 Yes Increase in venous pressure noted, 200mL rinse performed to verify patency. Significant clotting noted in venous drip chamber. Blood returned to patient with a 300mL rinseback. Dialyser and tubing changed. Treatment resumed, and UF appropriately adjusted. The patient denies any discomfort at this time 11/11/24 1143 200 mL/min 880 ml/hr 40 mmHg -50 mmHg 110 600 Yes Treatment resumed. UF Removed- 950 11/11/24 1145 400 mL/min 880 ml/hr -140 mmHg 110 mmHg 90 600 Yes BFR to 400, UF Removed- 1028 11/11/24 1200 400 mL/min 880 ml/hr -150 mmHg 120 mmHg 90 600 Yes Patient resting, UF Removed- 1141 11/11/24 1215 400 mL/min 880 ml/hr -150 mmHg 120 mmHg 90 600 Yes Patient resting, UF Removed- 1345 11/11/24 1230 400 mL/min 1190 ml/hr -140 mmHg 220 mmHg 90 600 Yes Increase in venous pressure noted, 200 mL rinse performed to verify pantency. No clotting noted in venous drip chamber. UF goal appropriately adjusted. UF Removed- 1600 11/11/24 1245 320 mL/min 1200 ml/hr -110 mmHg 250 mmHg 100 600 Yes Increase in venous pressure noted, BFR reduced. UF Removed- 1888 11/11/24 1302 0 mL/min 0 ml/hr -- -- -- -- Yes Treatment completed as ordered. Blood returned to patient per policy. UF Removed- 2200 Vital Signs Patient Vitals for the past 24 hrs: BP Temp Temp src Pulse Resp SpO2 11/11/24 1312 154/80 36.4 C (97.6 F) -- 87 16 100 % 11/11/24 1302 123/75 -- -- 87 -- -- 11/11/24 1245 134/76 -- -- 88 -- -- 11/11/24 1230 126/76 -- -- 86 -- -- 11/11/24 1215 132/75 -- -- 89 -- -- 11/11/24 1200 130/75 -- -- 87 -- -- 11/11/24 1145 128/70 -- -- 82 -- -- 11/11/24 1143 132/71 -- -- 103 -- -- 11/11/24 1130 131/79 -- -- 99 -- -- 11/11/24 1115 120/71 -- -- 85 -- -- 11/11/24 1100 102/62 -- -- 95 -- -- 11/11/24 1045 134/71 -- -- 88 -- -- 11/11/24 1030 138/81 -- -- 87 -- -- 11/11/24 1015 128/72 -- -- 85 -- -- 11/11/24 1000 132/73 -- -- 83 -- -- 11/11/24 0948 134/76 -- -- 81 -- -- 11/11/24 0946 153/77 -- -- 83 -- -- 11/11/24 0936 139/75 36.5 C (97.7 F) -- 83 16 97 % 11/11/24 0744 129/74 36.6 C (97.8 F) Temporal 83 18 100 % 11/10/24 1902 124/61 36.7 C (98 F) Temporal 90 16 100 % Post-Dialysis Arterial Catheter Locking Solution: Heparin (1000units:1ml) Volume (ml): 2.0 Venous Catheter Locking Solution: Heparin (1000units:1ml) Volume (ml): 2.1 Post-Treatment Procedures: Blood returned, Catheter capped, clamped and heparinized x 2 ports (Red CUROS Caps) Machine Disinfection Process: Exterior Machine Disinfection Rinseback Volume (mL): 300 mL Total Liters Processed (L/min): 66.6 L/min Dialyzer Clearance: Clotted Hemodialysis Intake (ml): 1200 ml Hemodialysis Output (ml): 2200 ml NET Removed (ml): 1000 ml Tolerated Treatment: Fair Interventions Taken: (Tubing and dialyzer exchanged. Multiple rinses performed) Patient Response to Treatment: Stable, family at bedside to assist with feeding Physician Notified: No Patient Disposition: (Remain in room planning to be discharged later today) Charge: $ IP Hemodialysis Charge: Hemodialysis Provider Notification Provider Notification Reason for Communication: Critical Lab Value (hbg 6.8) Provider Name: Dori Provider Role: CRISTO Method of Communication: Secure chat Response: Waiting for response Notification Date: 11/09/24 Notification Time: 250 Provider Role: CRISTO Method of Communication: Secure chat Response: Waiting for response Notification Time: 250 Handoff complete and report given to Primary RN at 1310. Primary RN (First Initial, Last Name, Title): Mona La RN Education Person Educated: Patient Knowledge Base: Substantial Barriers to Learning?: None Preferred method of Learning: Oral Topic(s): Emergency, Access Care, Signs and Symptoms of Infection, and Fluid Management Teaching Tools: Explanation Response to Education: Verbalized Understanding [1] No Known Allergies [2] Patient Active Problem List Diagnosis Hypertensive emergency Gastrointestinal hemorrhage, unspecified gastrointestinal hemorrhage type Anemia Pulmonary edema, acute (HCC) Shortness of breath COVID-19 Edema of left lower extremity Sepsis, due to unspecified organism, unspecified whether acute organ dysfunction present (HCC) Seizures (HCC) ESRD (end stage renal disease) (HCC) Dialysis patient ([facility]) [3] Wound Care follow up visit for Pressure Injury Prevention. Pt's Arnol score= 14 on 11/10 Pt's pressure points assessed. Pt's Heels, Left elbow, Occiput and ears all intact. Rosey wrap in place to left upper extremity. [place] and blanchable tissues noted to bilateral heels. Pt currently followed by Wound MILLINERY DEPARTMENT MANAGER group for wounds to sacrum extending to left buttock. For sacrum/left buttock wound assessment and treatment plan, please see Wound/Ostomy MILLINERY DEPARTMENT MANAGER progress notes. Instructed pt on pressure injury prevention and importance of turning/postioning every 2hrs while in bed and every 15 min while sitting in chair. Instructed on use and care of waffle chair cushion. Verbalized understanding. Prevention Measures in place, including: [place] sheet with pillows/wedges, Foam heel protectors (obtained and applied), Heels elevated off bed on pillows, Zinc/Moisture Barrier ointment, Waffle chair cushion. Skin Care precaution order set in place. Will continue to follow pt. Please Vocera for any questions or concerns. Kirti High RN Patient Name: Apoorva Gonzalez Patient : 1950 Acct: [id number] Date of Admission: 10/22/2024 Room[facility]: [facility] A Code Status: DNR-CCA Allergies: Allergies[1] Diagnosis: Problem List[2] Treatment: Hemodialysis 1:1 Priority: Routine Location: Bedside Diabetic: No NPO: No Isolation Precautions: Contact Consent for Treatment Verified: Yes Blood Consent Verified: Not Applicable ICEBOAT: Identify, Consent, Equipment, HepB Status, Orders Complete, Access Verified, Timeliness Second Clinician Verifying: Iraida Julien RN Time out performed prior to access at 0800. Report Received from Primary RN at 0718. Primary RN (First Initial, Last Name, Title): Lorna Medina RN Incapacitated Nurse Education Completed: Yes HBsAg ONLY: Date Drawn: September 15, 2024 Results: Negative HBsAb: Date Drawn: September 15, 2024 Results: Immune >10 Order Dialyzer: Nipro Na+ Modeling: Not Applicable Dialysate Temperature (C): 36 Blood Flow Rate (BFR): 400 Dialysate Flow Rate (DFR): 600 Access to be Utilized Access: Tunneled Catheter Location: Subclavian Side: Left Needle gauge: Not Applicable + Bruit/Thrill: Not Applicable First Use X-ray Verified: Not Applicable OK to use line order: Not Applicable Site Assessment: Signs and Symptoms of Infection/Inflammation: None If yes: Not Applicable Dressing: Soiled Site Prep: Medical Aseptic Technique Dressing Changed this Treatment: Yes If yes, by whom: Juli MARIE Date of Last Dressing Change: November 09, [address]?: Yes Red Alcohol Caps in place?: Yes Gauze Dressing?: No Non-Dialysis Use?: No Comment: Flows: Good and Patent If access problem, who was notified: Pre and Post-Assessment Patient Vitals for the past 8 hrs: Level of Consciousness Oriented X O2 Device Bilateral Breath Sounds Skin Color Skin Condition/Temp Abdomen Inspection Bowel Sounds (All Quadrants) RUE Edema LUE Edema RLE Edema LLE Edema Pain Interventions 11/09/24356 -- -- -- Clear;Diminished -- -- -- -- -- -- -- -- -- 11/09/24431 -- -- -- -- -- -- -- -- -- -- -- -- Medication (See MAR);Repositioned 11/09/24751 Alert (0) 3 None (Room air) Clear;Diminished Other (Comment) Warm;Dry Soft;Rounded Active None None None None -- 11/09/24 0844 -- -- -- Diminished -- -- -- -- -- -- -- -- -- Labs Lab Results Component Value Date/Time WBC 16.0 (H) 11/09/2024225 HGB 8.6 (L) 11/09/2024 0750 HGB 9.1 10/05/2024 1419 HCT 25.9 (L) 11/09/2024 075 PLT 414 11/09/2024225 NA 134 (L) 11/09/2024225 K 4.5 11/09/2024225 CL 102 11/09/2024225 CO2 24 11/09/2024225 BUN 24 (H) 11/09/2024225 CREATININE 4.02 (H) 11/09/2024225 CALCIUM 7.4 (L) 11/09/2024225 PHOS 2.7 10/26/2024656 IV Drips and Rate/Dose Continuous Meds[3] Safety - Before each treatment: Dialysis Machine No.: [id number] RO Machine Number: [id number] Dialyzer Lot No.: [id number] Tubing Lot Number: [id number] All Connections Secure: Yes Venous Parameters Set: Yes Arterial Parameters Set: Yes NS Bag: Yes Saline Line Double Clamped: Yes Dialyzer: Nipro Prime Volume (mL): 250 mL RO Machine Number: [id number] RO Machine Log Sheet Completed: Yes Machine Alarm Self Test: Completed, Passed (11/09/24751) Air Foam Detector: Tested, Proper Function, pH Reading Extracorporeal Circuit Tested for Integrity: Yes Machine Conductivity: 13.8 Manual Conductivity: 14 Manual Ph: 7.2 Bleach Test (Neg): Yes Bath Temperature: 36 C (96.8 F) Conductivity Meter Serial #: [id number] Machine Functioning Alarm Free? Yes Dialysis Bath: K+ (Potassium): 2 Ca+ (Calcium): 2.5 Na+ (Sodium): 138 HCO3 (Bicarb): 32 Bicarbonate Concentrate Lot No.: [id number] Acid Concentrate Lot No.: [id number] Chlorine Testing - Before each treatment and every 4 hours: Time On: 805 Time Off: 1106 Treatment Goal: 1 kg Weight Height: 162.6 cm (5' 4) (10/26/24 1438) Weight: 52.8 kg (116 lb 4.8 oz) (11/08/24427) BMI (Calculated): 19.95 (11/08/24427) 1st check: less than 0.1 ppm at: 0745 2nd check: less than 0.1 ppm at: Not Applicable 3rd check: Not Applicable (if greater than 0.1 ppm, then check every 30 minutes from secondary) Access Flows and Pressures Patient Vitals for the past 8 hrs: Blood Flow Rate (mL/min) Ultrafiltration Rate (ml/hr) Arterial Pressure (mmHg) Venous Pressure (mmHg) TMP DFR Access Visible Intra-Hemodialysis Comments 11/09/24 0806 400 mL/min 500 ml/hr -100 mmHg 60 mmHg 80 600 Yes tx initiated 11/09/24 0815 400 mL/min 500 ml/hr -110 mmHg 80 mmHg 80 600 Yes no HD complications, 65 ml removed 11/09/24 0830 400 mL/min 500 ml/hr -120 mmHg 90 mmHg 70 600 Yes no s/s of distress, 190 ml removed 11/09/24 0845 400 mL/min 500 ml/hr -130 mmHg 100 mmHg 70 600 Yes pt alert, moaning, 315 ml removed 11/09/24 0900 400 mL/min 500 ml/hr -120 mmHg 110 mmHg 70 600 Yes provided warm blankets, 440 ml removed 11/09/24 0915 400 mL/min 500 ml/hr -130 mmHg 110 mmHg 70 600 Yes pt resting with eyes closed, 565 ml removed 11/09/24 0930 400 mL/min 500 ml/hr -130 mmHg 110 mmHg 70 600 Yes lines secure and visible, 680 ml removed 11/09/24 0945 400 mL/min 500 ml/hr -190 mmHg 110 mmHg 70 600 Yes pt resting, 805 ml removed 11/09/24 1000 400 mL/min 500 ml/hr -130 mmHg 120 mmHg 70 600 Yes B. Marrow, AGENCY TRAINER & vasc surgery at [facility], increase UF goal if tolerated, 925 ml removed 11/09/24 1015 400 mL/min 1000 ml/hr -120 mmHg 130 mmHg 70 600 Yes primary nurse administering pain meds, 1165 ml removed 11/09/24 1030 400 mL/min 1000 ml/hr -140 mmHg 120 mmHg 70 600 Yes no HD complications, 1420 ml removed 11/09/24 1045 400 mL/min 1000 ml/hr -120 mmHg 140 mmHg 50 600 Yes UF off d/t increasing HR, 1663 ml removed 11/09/24 1100 400 mL/min 1000 ml/hr -120 mmHg 140 mmHg 50 600 Yes tx terminated Vital Signs Patient Vitals for the past 24 hrs: BP Temp Temp src Pulse Resp SpO2 11/09/24 1110 157/96 36.5 C (97.7 F) -- 112 20 100 % 11/09/24 1100 139/87 -- -- 119 -- -- 11/09/24 1045 122/82 -- -- 119 -- -- 11/09/24 1030 138/87 -- -- 114 -- -- 11/09/24 1015 151/91 -- -- 117 -- -- 11/09/24 1000 160/89 -- -- 117 -- -- 11/09/24 0945 (!) 182/99 -- -- 111 -- -- 11/09/24 0930 (!) 164/105 -- -- 108 -- -- 11/09/24 0915 (!) 178/114 -- -- 105 -- -- 11/09/24 0900 (!) 175/101 -- -- 107 -- -- 11/09/24 0845 (!) 172/111 -- -- 102 -- -- 11/09/24829 (!) 182/108 -- -- 108 -- -- 11/09/24 0815 (!) 174/103 -- -- 100 -- -- 11/09/24 0806 (!) 182/90 -- -- 100 -- -- 11/09/24 0752 (!) 175/106 37.2 C (99 F) Temporal 94 18 99 % 11/09/24 0630 (!) 177/98 37.3 C (99.2 F) Temporal 94 16 99 % 11/09/24 0412 (!) 165/100 36.9 C (98.4 F) Temporal 106 20 99 % 11/09/24 0345 (!) 182/92 37.1 C (98.7 F) Temporal 110 16 97 % 11/08/24 1910 148/80 36.9 C (98.5 F) Temporal 102 16 98 % Post-Dialysis Arterial Catheter Locking Solution: Heparin (1000units:1ml) Volume (ml): 2.0 Venous Catheter Locking Solution: Heparin (1000units:1ml) Volume (ml): 2.1 Post-Treatment Procedures: Blood returned, Catheter capped, clamped and heparinized x 2 ports Machine Disinfection Process: Exterior Machine Disinfection Rinseback Volume (mL): 250 mL Total Liters Processed (L/min): 63.4 L/min Dialyzer Clearance: Clear Hemodialysis Intake (ml): 500 ml Hemodialysis Output (ml): 1663 ml NET Removed (ml): 1163 ml Tolerated Treatment: Fair Interventions Taken: (None needed at this time) Patient Response to Treatment: stable Physician Notified: No Patient Disposition: Other (Comment) (remain in room 6W 637) Charge: $ IP Hemodialysis Charge: Hemodialysis Provider Notification Provider Notification Reason for Communication: Critical Lab Value (hbg 6.8) Provider Name: Dori Provider Role: CRISTO Method of Communication: Secure chat Response: Waiting for response Notification Date: 11/09/24 Notification Time: 0251 Provider Role: CRISTO Method of Communication: Secure chat Response: Waiting for response Notification Time: 025 Handoff complete and report given to Primary RN at 1110. Primary RN (First Initial, Last Name, Title): Lorna Medina RN Education Person Educated: Patient Knowledge Base: Substantial Barriers to Learning?: Yes, including confusion Preferred method of Learning: Oral Topic(s): Access Care and Procedural Teaching Tools: Explanation Response to Education: Requires Follow-up [1] No Known Allergies [2] Patient Active Problem List Diagnosis Hypertensive emergency Gastrointestinal hemorrhage, unspecified gastrointestinal hemorrhage type Anemia Pulmonary edema, acute (HCC) Shortness of breath COVID-19 Edema of left lower extremity Sepsis, due to unspecified organism, unspecified whether acute organ dysfunction present (HCC) Seizures (HCC) ESRD (end stage renal disease) (HCC) Dialysis patient (HCC) [3] Contacted Dr. Carrillo regarding pt screaming out in pain and having bit of confusion. Pt dressing saturated and changed again. Anjel H&H. Dialysis at bedside. Patient c/o severe pain crying out and thrashing in bed, prn oxy utilized with no effect. Arm is swollen and sore elevated on pillow, dressing has been changed x2 for bleeding. Blood pressure elevated prn medication utilized for that. Hemoglobin low currently receiving 1 unit of blood. Notified superintendent house of complaints of pain and findings awaiting reply. Blood sugar 67 orange juice given pt resting quietly , denies any s/s of hypoglycemia. 1L removed Patient Name: Apoorva Gonzalez Patient : 1950 Acct: [id number] Date of Admission: 10/22/2024 Room/Bed: [facility] A Code Status: DNR-CCA Allergies: Allergies[1] Diagnosis: Problem List[2] Treatment: Hemodialysis 1:1 Priority: Routine Location: Bedside Diabetic: Yes NPO: No Isolation Precautions: Contact Consent for Treatment Verified: Yes Blood Consent Verified: Not Applicable ICEBOAT: Identify, Consent, Equipment, HepB Status, Orders Complete, Access Verified, Timeliness Second Clinician Verifying: Manny Hou RN Time out performed prior to access at 0943. Report Received from Primary RN at 0834. Primary RN (First Initial, Last Name, Title): Joann Hou RN. Incapacitated Nurse Education Completed: Yes HBsAg ONLY: Date Drawn: September 15, 2024 Results: Negative HBsAb: Date Drawn: September 15, 2024 Results: Immune >10 Order Dialyzer: Nipro Na+ Modeling: Not Applicable Dialysate Temperature (C): 36 Blood Flow Rate (BFR): 400 Dialysate Flow Rate (DFR): 600 Access to be Utilized Access: Tunneled Catheter Location: Subclavian Side: Left Needle gauge: Not Applicable + Bruit/Thrill: Not Applicable First Use X-ray Verified: Not Applicable OK to use line order: Not Applicable Site Assessment: Signs and Symptoms of Infection/Inflammation: None If yes: Not Applicable Dressing: Dry and Intact Site Prep: Medical Aseptic Technique Dressing Changed this Treatment: No If yes, by whom: NA - not changed today Date of Last Dressing Change: November 04, [address]?: Yes Red Alcohol Caps in place?: Yes Gauze Dressing?: No Non-Dialysis Use?: No Comment: Flows: Good If access problem, who was notified: Pre and Post-Assessment Patient Vitals for the past 8 hrs: Level of Consciousness Oriented X Heart Rhythm Respiratory Pattern O2 Device Bilateral Breath Sounds Skin Color Skin Condition/Temp Abdomen Inspection Bowel Sounds (All Quadrants) Edema Generalized Edema RUE Edema LUE Edema RLE Edema LLE Edema 11/07/24 0800 -- -- -- -- -- Clear;Diminished -- Warm;Dry Soft;Rounded Active Generalized Non-pitting -- -- -- -- 11/07/24 0912 Alert (0) x4 Regular Other (Comment) None (Room air) Diminished [place] Warm;Dry Soft;Rounded Active Right lower extremity;Left lower extremity -- None None +1 +2 11/07/24 1259 Alert (0) x4 Regular Other (Comment) None (Room air) Diminished [place] Warm;Dry Soft;Rounded Active Right lower extremity;Left lower extremity -- None None +1 +2 Labs Lab Results Component Value Date/Time WBC 14.1 (H) 11/07/2024107 HGB 7.6 (L) 11/07/2024107 HGB 9.1 10/05/2024 1419 HCT 23.6 (L) 11/07/2024107 PLT 377 11/07/2024107 NA 139 11/07/2024107 K 4.8 11/07/2024107 CL 105 11/07/2024107 CO2 23 11/07/2024107 BUN 37 (H) 11/07/2024107 CREATININE 4.35 (H) 11/07/2024107 CALCIUM 7.2 (L) 11/07/2024107 PHOS 2.7 10/26/2024 06 IV Drips and Rate/Dose Continuous Meds[3] Safety - Before each treatment: Dialysis Machine No.: [id number] RO Machine Number: [id number] Dialyzer Lot No.: [id number] Tubing Lot Number: [id number] All Connections Secure: Yes Venous Parameters Set: Yes Arterial Parameters Set: Yes NS Bag: Yes Saline Line Double Clamped: Yes Dialyzer: Nipro Prime Volume (mL): 200 mL RO Machine Number: [id number] RO Machine Log Sheet Completed: Yes Machine Alarm Self Test: Completed, Passed (11/07/24942) Air Foam Detector: Tested, Proper Function, pH Reading Extracorporeal Circuit Tested for Integrity: Yes Machine Conductivity: 13.6 Manual Conductivity: 13.4 Manual Ph: 7.4 Bleach Test (Neg): Yes Bath Temperature: 36 C (96.8 F) Conductivity Meter Serial #: [id number] Machine Functioning Alarm Free? Yes Dialysis Bath: K+ (Potassium): 2 Ca+ (Calcium): 2.5 Na+ (Sodium): 138 HCO3 (Bicarb): 32 Bicarbonate Concentrate Lot No.: [id number] Acid Concentrate Lot No.: [id number] Chlorine Testing - Before each treatment and every 4 hours: Time On: 0943 Time Off: 1243 Treatment Goal: 1 kg Weight Height: 162.6 cm (5' 4) (10/26/24 1438) Weight: 54.7 kg (120 lb 11.2 oz) (11/07/24610) BMI (Calculated): 20.71 (11/07/24610) 1st check: less than 0.1 ppm at: 0904 2nd check: less than 0.1 ppm at: na 3rd check: Not Applicable (if greater than 0.1 ppm, then check every 30 minutes from secondary) Access Flows and Pressures Patient Vitals for the past 8 hrs: Blood Flow Rate (mL/min) Ultrafiltration Rate (ml/hr) Arterial Pressure (mmHg) Venous Pressure (mmHg) TMP DFR Access Visible Intra-Hemodialysis Comments 11/07/24 0943 400 mL/min 480 ml/hr -60 mmHg 30 mmHg 90 600 Yes HD started per policy without difficulty, no change in condition noted, denies needs, LVSD 11/07/24 1000 400 mL/min 480 ml/hr -80 mmHg 50 mmHg 80 600 Yes LVSD, watching tv, no sign of acute distress 11/07/24 1015 400 mL/min 480 ml/hr -80 mmHg 50 mmHg 80 600 Yes LVSD, eyes closed, no sign of acute distress 11/07/24 1030 400 mL/min 480 ml/hr -80 mmHg 60 mmHg 80 600 Yes LVSD, eyes closed, no sign of acute distress 11/07/24 1045 400 mL/min 480 ml/hr -90 mmHg 60 mmHg 80 600 Yes LVSD, eyes closed no sign of acute distress 11/07/24 1100 400 mL/min 480 ml/hr -90 mmHg 60 mmHg 80 600 Yes LVSD, denies needs, LVSD 11/07/24 1115 400 mL/min 480 ml/hr -90 mmHg 60 mmHg 80 600 Yes LVSD, no sign of acute distress 11/07/24 1130 400 mL/min 480 ml/hr -90 mmHg 70 mmHg 80 600 Yes LVSD, no sign of acute distress 11/07/24 1145 400 mL/min 480 ml/hr -90 mmHg 60 mmHg 80 600 Yes LVSD, denies needs 11/07/24 1200 400 mL/min 480 ml/hr -90 mmHg 70 mmHg 80 600 Yes LVSD, no sign of acute distress 11/07/24 1215 400 mL/min 480 ml/hr -100 mmHg 60 mmHg 80 600 Yes LVSD, denies needs 11/07/24 1230 400 mL/min 480 ml/hr -100 mmHg 70 mmHg 80 600 Yes LVSD, using phone 11/07/24 1243 400 mL/min -- -100 mmHg 70 mmHg 80 600 Yes LVSD, tx completed, blood rinsed back per policy without difficulty, denies needs Vital Signs Patient Vitals for the past 24 hrs: BP Temp Temp src Pulse Resp SpO2 Weight 11/07/24 1259 (!) 165/86 36.7 C (98 F) -- 99 18 99 % -- 11/07/24 1243 (!) 167/99 -- -- 100 17 -- -- 11/07/24 1230 (!) 174/95 -- -- 102 18 -- -- 11/07/24 1215 (!) 161/99 -- -- 103 18 -- -- 11/07/24 1200 160/94 -- -- 101 18 -- -- 11/07/24 1145 (!) 173/87 -- -- 100 17 -- -- 11/07/24 1130 160/84 -- -- 100 18 -- -- 11/07/24 1115 (!) 165/89 -- -- 99 19 -- -- 11/07/24 1100 160/87 -- -- 100 17 -- -- 11/07/24 1045 154/86 -- -- 94 18 -- -- 11/07/24 1030 (!) 163/89 -- -- 92 17 -- -- 11/07/24 1015 151/93 -- -- 92 16 -- -- 11/07/24 1000 (!) 161/91 -- -- 87 18 -- -- 11/07/24 0943 (!) 180/94 -- -- 86 19 -- -- 11/07/24 0912 159/94 36.8 C (98.3 F) -- 88 19 99 % -- 11/07/24 0753 157/96 36.7 C (98.1 F) Temporal 87 19 100 % -- 11/07/24 0611 -- -- -- -- -- -- 54.7 kg (120 lb 11.2 oz) 11/06/248 138/88 37.2 C (99 F) Temporal 98 18 99 % -- Post-Dialysis Arterial Catheter Locking Solution: Heparin (1000units:1ml) Volume (ml): 2 Venous Catheter Locking Solution: Heparin (1000units:1ml) Volume (ml): 2.1 Post-Treatment Procedures: Blood returned, Catheter capped, clamped and heparinized x 2 ports Machine Disinfection Process: Exterior Machine Disinfection Rinseback Volume (mL): 200 mL Total Liters Processed (L/min): 69.2 L/min Dialyzer Clearance: Lightly streaked Hemodialysis Intake (ml): 400 ml Hemodialysis Output (ml): 1400 ml NET Removed (ml): 1000 ml Tolerated Treatment: Good Interventions Taken: (None needed at this time) Patient Response to Treatment: tolerated well Physician Notified: No Patient Disposition: (bedside tx) Charge: $ IP Hemodialysis Charge: Hemodialysis Provider Notification Provider Notification Reason for Communication: Evaluate (left arm leaking/bleeding) Provider Name: Johann Provider Role: Hospitalist Method of Communication: Secure chat Response: Waiting for response Notification Date: 11/07/24 Notification Time: 075 Provider Role: Hospitalist Method of Communication: Secure chat Response: Waiting for response Notification Time: 075 Handoff complete and report given to Primary RN at 1305. Primary RN (First Initial, Last Name, Title): Manny Hou RN Education Person Educated: Patient Knowledge Base: Substantial Barriers to Learning?: None Preferred method of Learning: Hands-on Topic(s): Procedural and Potassium Teaching Tools: Explanation Response to Education: Verbalized Understanding and Requires Follow-up [1] No Known Allergies [2] Patient Active Problem List Diagnosis Hypertensive emergency Gastrointestinal hemorrhage, unspecified gastrointestinal hemorrhage type Anemia Pulmonary edema, acute (HCC) Shortness of breath COVID-19 Edema of left lower extremity Sepsis, due to unspecified organism, unspecified whether acute organ dysfunction present (HCC) Seizures (HCC) ESRD (end stage renal disease) (HCC) Dialysis patient (HCC) [3] Patient Name: Apoorva Gonzalez Patient : 1950 Acct: [id number] Date of Admission: 10/22/2024 Room/Bed: [facility] A Code Status: DNR-CCA Allergies: Allergies[1] Diagnosis: Problem List[2] Treatment: Hemodialysis 1:1 Priority: Routine Location: Bedside Diabetic: No NPO: No Isolation Precautions: Contact Consent for Treatment Verified: Yes Blood Consent Verified: Not Applicable ICEBOAT: Identify, Consent, Equipment, HepB Status, Orders Complete, Access Verified, Timeliness Second Clinician Verifying: Vi Renteria RN Time out performed prior to access at 1945. Report Received from Primary RN at 0849. Primary RN (First Initial, Last Name, Title): Manny Hou RN Incapacitated Nurse Education Completed: Yes HBsAg ONLY: Date Drawn: September 15, 2024 Results: Negative HBsAb: Date Drawn: September 15, 2024 Results: Immune >10 Order Dialyzer: Nipro Na+ Modeling: Not Applicable Dialysate Temperature (C): 36 Blood Flow Rate (BFR): 400 Dialysate Flow Rate (DFR): 600 Access to be Utilized Access: Tunneled Catheter Location: Subclavian Side: Left Needle gauge: Not Applicable + Bruit/Thrill: Not Applicable First Use X-ray Verified: Not Applicable OK to use line order: Not Applicable Site Assessment: Signs and Symptoms of Infection/Inflammation: None If yes: Not Applicable Dressing: Dry and Intact Site Prep: Medical Aseptic Technique Dressing Changed this Treatment: Yes If yes, by whom: Juli MARIE Date of Last Dressing Change: November 04, [address]?: Yes Red Alcohol Caps in place?: Yes Gauze Dressing?: No Non-Dialysis Use?: No Comment: Flows: Good and Patent If access problem, who was notified: Pre and Post-Assessment Patient Vitals for the past 8 hrs: Level of Consciousness Oriented X O2 Device Bilateral Breath Sounds Skin Condition/Temp Abdomen Inspection Bowel Sounds (All Quadrants) Edema Generalized Edema RUE Edema LUE Edema RLE Edema LLE Edema 11/04/24 0821 -- -- -- Clear;Diminished Warm;Dry Soft Present Generalized;Right lower extremity;Left lower extremity Non-pitting None None Non-pitting +2 11/04/24 0940 Alert (0) 1 None (Room air) Clear;Diminished Warm;Dry Soft Present Generalized;Right lower extremity;Left lower extremity Non-pitting None None Non-pitting +2 Labs Lab Results Component Value Date/Time WBC 15.5 (H) 11/04/2024 025 HGB 7.7 (L) 11/04/2024 025 HGB 9.1 10/05/2024 1419 HCT 23.0 (L) 11/04/2024 025 PLT 372 11/04/2024 025 NA 139 11/04/2024 0100 K 4.0 11/04/2024 010 CL 104 11/04/2024 010 CO2 24 11/04/2024 010 BUN 25 (H) 11/04/2024 010 CREATININE 3.47 (H) 11/04/2024 010 CALCIUM 7.2 (L) 11/04/2024 010 PHOS 2.7 10/26/2024 0657 IV Drips and Rate/Dose Continuous Meds[3] Safety - Before each treatment: Dialysis Machine No.: [id number] Machine Number: [id number] Dialyzer Lot No.: [id number] Tubing Lot Number: [id number] All Connections Secure: Yes Venous Parameters Set: Yes Arterial Parameters Set: Yes NS Bag: Yes Saline Line Double Clamped: Yes Dialyzer: Nipro Prime Volume (mL): 250 mL RO Machine Number: [id number] RO Machine Log Sheet Completed: Yes Machine Alarm Self Test: Completed, Passed (11/04/24 0940) Air Foam Detector: Tested, Proper Function, pH Reading Extracorporeal Circuit Tested for Integrity: Yes Machine Conductivity: 13.9 Manual Conductivity: 14 Manual Ph: 7.2 Bleach Test (Neg): Yes Bath Temperature: 36 C (96.8 F) Conductivity Meter Serial #: [id number] Machine Functioning Alarm Free? Yes Dialysis Bath: K+ (Potassium): 2 Ca+ (Calcium): 2.5 Na+ (Sodium): 138 HCO3 (Bicarb): 32 Bicarbonate Concentrate Lot No.: [id number] Acid Concentrate Lot No.: [id number] Chlorine Testing - Before each treatment and every 4 hours: Time On: 0950 Time Off: 1250 Treatment Goal: 1 kg Weight Height: 162.6 cm (5' 4) (10/26/24 1438) Weight: 55.2 kg (121 lb 11.2 oz) (11/04/24 06) BMI (Calculated): 20.88 (11/04/24599) 1st check: less than 0.1 ppm at: 0930 2nd check: less than 0.1 ppm at: n/a 3rd check: Not Applicable (if greater than 0.1 ppm, then check every 30 minutes from secondary) Access Flows and Pressures Patient Vitals for the past 8 hrs: Blood Flow Rate (mL/min) Ultrafiltration Rate (ml/hr) Arterial Pressure (mmHg) Venous Pressure (mmHg) TMP DFR Access Visible Intra-Hemodialysis Comments 11/04/24 0950 400 mL/min 500 ml/hr -90 mmHg 60 mmHg 90 600 Yes tx initiated 11/04/24 1000 400 mL/min 500 ml/hr -90 mmHg 90 mmHg 90 600 Yes no HD complications 95 ml removed 11/04/24 1015 400 mL/min 500 ml/hr -120 mmHg 90 mmHg 80 600 Yes pt resting with eyes closed, 200 ml removed 11/04/24 1030 400 mL/min 500 ml/hr -120 mmHg 90 mmHg 80 600 Yes no s/s of distress, 325 ml removed 11/04/24 1045 400 mL/min 500 ml/hr -130 mmHg 100 mmHg 80 600 Yes lines secure and visible, 450 ml removed 11/04/24 1100 400 mL/min 500 ml/hr -120 mmHg 100 mmHg 80 600 Yes repositioned pt, provided warm blankets and socks, 575 ml removed 11/04/24 1115 400 mL/min 500 ml/hr -130 mmHg 100 mmHg 80 600 Yes pt resting with eyes closed, 700 ml removed 11/04/24 1130 400 mL/min 510 ml/hr -140 mmHg 90 mmHg 80 600 Yes asked primary nurse to admin BP meds for increasing BP, 840 ml removed 11/04/24 1145 400 mL/min 510 ml/hr -130 mmHg 100 mmHg 80 600 Yes primary nurse at bedside,955 ml removed 11/04/24 1200 400 mL/min 510 ml/hr -130 mmHg 100 mmHg 80 600 Yes pt alert, no voiced concerns, 1090 ml removed 11/04/24 1215 400 mL/min 510 ml/hr -130 mmHg 110 mmHg 90 600 Yes no HD complications, 1210 ml removed 11/04/24 1230 400 mL/min 510 ml/hr -130 mmHg 100 mmHg 80 600 Yes no s/s of distress, 1330 ml removed 11/04/24 1245 400 mL/min 510 ml/hr -130 mmHg 100 mmHg 80 600 Yes pt alert, no voiced concerns, 1460 ml removed 11/04/24 1250 400 mL/min 510 ml/hr -130 mmHg 100 mmHg 80 600 Yes tx complete, 1500 ml removed Vital Signs Patient Vitals for the past 24 hrs: BP Temp Temp src Pulse Resp SpO2 Weight 11/04/24 1256 146/75 37.1 C (98.7 F) Temporal 92 18 100 % -- 11/04/24 1250 155/86 -- -- 92 -- -- -- 11/04/24 1245 (!) 171/87 -- -- 92 -- -- -- 11/04/24 1230 139/79 -- -- 92 -- -- -- 11/04/24 1215 (!) 167/77 -- -- 87 -- -- -- 11/04/24 1200 160/84 -- -- 89 -- -- -- 11/04/24 1145 139/80 -- -- 83 -- -- -- 11/04/24 1130 (!) 177/94 -- -- 104 -- -- -- 11/04/24 1115 (!) 175/98 -- -- 102 -- -- -- 11/04/24 1100 (!) 151/106 -- -- 102 -- -- -- 11/04/24 1045 157/94 -- -- 103 -- -- -- 11/04/24 1030 (!) 164/83 -- -- 102 -- -- -- 11/04/24 1015 136/87 -- -- 100 -- -- -- 11/04/24 1000 152/86 -- -- 98 -- -- -- 11/04/24 0950 (!) 164/93 -- -- 96 -- -- -- 11/04/24 0940 143/87 36.9 C (98.4 F) Temporal 102 18 95 % -- 11/04/24 0739 156/84 37.2 C (98.9 F) Temporal 95 18 97 % -- 11/04/24 0600 -- -- -- -- -- -- 55.2 kg (121 lb 11.2 oz) 11/03/24 1943 142/86 37.4 C (99.4 F) Temporal 103 20 100 % -- 11/03/24 1322 129/74 36.6 C (97.9 F) Temporal 94 17 96 % -- Post-Dialysis Arterial Catheter Locking Solution: Heparin (1000units:1ml) Volume (ml): 2.0 Venous Catheter Locking Solution: Heparin (1000units:1ml) Volume (ml): 2.1 Post-Treatment Procedures: Blood returned, Catheter capped, clamped and heparinized x 2 ports Machine Disinfection Process: Bleach, Verified Absence of Bleach in HCO3 Jug, Machine Absence of Bleach Machine, Exterior Machine Disinfection Rinseback Volume (mL): 250 mL Total Liters Processed (L/min): 68.1 L/min Dialyzer Clearance: Clear Hemodialysis Intake (ml): 500 ml Hemodialysis Output (ml): 1500 ml NET Removed (ml): 1000 ml Tolerated Treatment: Good Interventions Taken: (None needed at this time) Patient Response to Treatment: stable Physician Notified: No Patient Disposition: (remain in room 6W 637) Charge: $ IP Hemodialysis Charge: Hemodialysis Provider Notification Provider Notification Reason for Communication: Critical Lab Value Provider Name: Dr. John Gar DO Provider Role: Consulting physician Method of Communication: Secure chat Response: See orders Notification Date: 11/04/24 Notification Time: 137 Provider Role: Consulting physician Method of Communication: Secure chat Response: See orders Notification Time: 137 Handoff complete and report given to Primary RN at 1300. Primary RN (First Initial, Last Name, Title): Mnany Hou RN Education Person Educated: Patient Knowledge Base: Minimal Barriers to Learning?: Yes, including confusion Preferred method of Learning: Oral Topic(s): Access Care and Procedural Teaching Tools: Explanation Response to Education: Requires Follow-up [1] No Known Allergies [2] Patient Active Problem List Diagnosis Hypertensive emergency Gastrointestinal hemorrhage, unspecified gastrointestinal hemorrhage type Anemia Pulmonary edema, acute (HCC) Shortness of breath COVID-19 Edema of left lower extremity Sepsis, due to unspecified organism, unspecified whether acute organ dysfunction present (HCC) Seizures (HCC) ESRD (end stage renal disease) (HCC) Dialysis patient (HCC) [3] Patient Name: Apoorva Gonzalez Patient : 1950 Acct: [id number] Date of Admission: 10/22/2024 Room/Bed: [facility] A Code Status: DNR-CCA Allergies: Allergies[1] Diagnosis: Problem List[2] Treatment: Hemodialysis 1:1 Priority: Routine Location: Med/Surg/Tele Diabetic: No NPO: No Isolation Precautions: Contact Consent for Treatment Verified: Yes Blood Consent Verified: Not Applicable ICEBOAT: Identify, Consent, Equipment, HepB Status, Orders Complete, Access Verified, Timeliness Second Clinician Verifying: Manny Adkins RN Time out performed prior to access at 1527. Report Received from Primary RN at 1350. Primary RN (First Initial, Last Name, Title): Manny Adkins RN Incapacitated Nurse Education Completed: Yes AP HBsAg ONLY: Date Drawn: September 18, 2024 Results: Negative HBsAb: Date Drawn: September 18, 2024 Results: Immune >10 Order Dialyzer: Nipro Na+ Modeling: Not Applicable Dialysate Temperature (C): 36 Blood Flow Rate (BFR): 400 Dialysate Flow Rate (DFR): 600 Access to be Utilized Access: Tunneled Catheter Location: Internal Jugular Side: Left Needle gauge: Not Applicable + Bruit/Thrill: Not Applicable First Use X-ray Verified: Not Applicable OK to use line order: Present on Admission Site Assessment: Signs and Symptoms of Infection/Inflammation: None If yes: Not Applicable Dressing: Dry and Intact Site Prep: Medical Aseptic Technique Dressing Changed this Treatment: No If yes, by whom: NA - not changed today Date of Last Dressing Change: October 27, [address]?: Yes Red Alcohol Caps in place?: Yes Gauze Dressing?: No Non-Dialysis Use?: No Comment: Flows: Good and Patent If access problem, who was notified: Pre and Post-Assessment Patient Vitals for the past 8 hrs: Level of Consciousness Oriented X Heart Rhythm O2 Device Bilateral Breath Sounds Skin Condition/Temp Abdomen Inspection Bowel Sounds (All Quadrants) Edema LLE Edema Pre-Hemodialysis Comments 11/02/24 1150 -- -- -- -- Diminished;Clear -- Soft Active -- -- -- 11/02/24 1215 -- -- -- -- Diminished;Clear -- -- -- -- -- -- 11/02/24 1245 -- -- -- -- Diminished;Clear -- -- -- -- -- -- 11/02/24 1315 -- -- -- -- Diminished;Clear -- -- -- -- -- -- 11/02/24 1345 -- -- -- -- Diminished;Clear -- -- -- -- -- -- 11/02/24 1415 -- -- -- -- Diminished;Clear -- -- -- -- -- -- 11/02/24 1430 -- -- -- -- Clear;Diminished Warm;Dry Soft Active -- -- -- 11/02/24 1518 Alert (0) 0 Regular None (Room air) Clear;Diminished Warm;Dry Soft Active Left lower extremity +1 Patient is agreeable to dialysis, and consent obtained from brother, Deshawn, by this Rn 11/02/24 1846 Alert (0) 4 Regular None (Room air) Clear;Diminished Warm;Dry Soft Active Left lower extremity +1 -- Labs Lab Results Component Value Date/Time WBC 21.9 (H) 11/02/2024 0241 HGB 8.0 (L) 11/02/2024 1655 HGB 9.1 10/05/2024 1419 HCT 24.1 (L) 11/02/2024 1655 PLT 530 (H) 11/02/2024 0241 NA 136 11/02/2024 1155 K 5.0 11/02/2024 1155 CL 105 11/02/2024 1155 CO2 20 (L) 11/02/2024 1155 BUN 23 11/02/2024 1155 CREATININE 3.99 (H) 11/02/2024 1155 CALCIUM 7.5 (L) 11/02/2024 1155 PHOS 2.7 10/26/2024 0657 IV Drips and Rate/Dose Continuous Meds[3] Safety - Before each treatment: Dialysis Machine No.: [id number] RO Machine Number: [id number] Dialyzer Lot No.: [id number] Tubing Lot Number: [id number] All Connections Secure: Yes Venous Parameters Set: Yes Arterial Parameters Set: Yes NS Bag: Yes Saline Line Double Clamped: Yes Dialyzer: Nipro Prime Volume (mL): 200 mL RO Machine Number: [id number] RO Machine Log Sheet Completed: Yes Machine Alarm Self Test: Completed, Passed (The machine passed all tests at 1520.) (11/02/241526) Air Foam Detector: Proper Function, Tested Extracorporeal Circuit Tested for Integrity: Yes Machine Conductivity: 13.5 Manual Conductivity: 13.6 Manual Ph: 7.2 Bleach Test (Neg): Yes Bath Temperature: 36 C (96.8 F) Conductivity Meter Serial #: [id number] Machine Functioning Alarm Free? Yes Dialysis Bath: K+ (Potassium): 2 Ca+ (Calcium): 2.5 Na+ (Sodium): 138 HCO3 (Bicarb): 32 Bicarbonate Concentrate Lot No.: [id number] Acid Concentrate Lot No.: [id number] Chlorine Testing - Before each treatment and every 4 hours: Time On: 1532 Time Off: 183 Treatment Goal: 1L Weight Height: 162.6 cm (5' 4) (10/26/24 1438) Weight: 53.2 kg (117 lb 3.2 oz) (11/02/24617) BMI (Calculated): 20.11 (11/02/24617) 1st check: less than 0.1 ppm at: 1521 2nd check: less than 0.1 ppm at: 1649 3rd check: Not Applicable (if greater than 0.1 ppm, then check every 30 minutes from secondary) Access Flows and Pressures Patient Vitals for the past 8 hrs: Blood Flow Rate (mL/min) Ultrafiltration Rate (ml/hr) Arterial Pressure (mmHg) Venous Pressure (mmHg) TMP DFR Access Visible Intra-Hemodialysis Comments 11/02/24 1532 200 mL/min 500 ml/hr -60 mmHg 50 mmHg 80 600 Yes Treatment intitiated. All lines secured, bed in locked and lowest position, and call light is within reach 11/02/24 1537 400 mL/min 500 ml/hr -130 mmHg 140 mmHg 90 600 Yes BFR to 400- UF Removed- 41 11/02/24 1545 400 mL/min 500 ml/hr -140 mmHg 150 mmHg 90 600 Yes Patient resting, UF Removed- 110 11/02/24 1600 400 mL/min 500 ml/hr -150 mmHg 160 mmHg 80 600 Yes Patient resting, UF Removed- 228 11/02/24 1615 400 mL/min 500 ml/hr -150 mmHg 160 mmHg 80 600 Yes Patient resting, UF Removed- 420 11/02/24 1630 400 mL/min 500 ml/hr -170 mmHg 170 mmHg 80 600 Yes Patient resting, UF Removed- 485 11/02/24 1645 400 mL/min 500 ml/hr -160 mmHg 160 mmHg 80 600 Yes Patient's signifigant other at bedside- UF Removed- 603 11/02/24 1700 400 mL/min 500 ml/hr -170 mmHg 160 mmHg 80 600 Yes Patient's signifigant other at [facility], UF Removed- 746 11/02/24 1715 400 mL/min 500 ml/hr -180 mmHg 160 mmHg 80 600 Yes Patient's signifigant other at bedside, UF Removed- 863 11/02/24 1730 400 mL/min 500 ml/hr -190 mmHg 160 mmHg 80 600 Yes Patient resting, UF Removed- 982 11/02/24 1800 400 mL/min 500 ml/hr -190 mmHg 160 mmHg 80 600 Yes Patient resting, UF Removed- 1247 11/02/24 1815 400 mL/min 500 ml/hr -180 mmHg 150 mmHg 80 600 Yes Patient resting, UF Removed- 1365 11/02/24 1832 0 mL/min 0 ml/hr -- -- -- -- -- Treatment completed as ordered, blood returned to patient per policy. UF Removed- 1500 Vital Signs Patient Vitals for the past 24 hrs: BP Temp Temp src Pulse Resp SpO2 Weight 11/02/24 1846 141/75 36.9 C (98.5 F) -- 111 16 95 % -- 11/02/24 1832 116/66 -- -- 118 -- -- -- 11/02/24 1815 131/74 -- -- 118 -- -- -- 11/02/24 1800 118/73 -- -- 115 -- -- -- 11/02/24 1730 115/72 -- -- 118 -- -- -- 11/02/24 1715 119/76 -- -- 116 -- -- -- 11/02/24 1700 119/76 -- -- 117 -- -- -- 11/02/24 1645 122/75 -- -- 120 -- -- -- 11/02/24 1630 116/75 -- -- 119 -- -- -- 11/02/24 1615 118/77 -- -- 114 -- -- -- 11/02/24 1600 121/79 -- -- 116 -- -- -- 11/02/24 1545 146/77 -- -- 108 -- -- -- 11/02/24 1537 128/79 -- -- 102 -- -- -- 11/02/24 1532 145/86 -- -- 102 -- -- -- 11/02/24 1518 140/83 37.5 C (99.5 F) Temporal 104 18 99 % -- 11/02/24 1429 114/74 37.4 C (99.4 F) Temporal 107 18 98 % -- 11/02/24 1415 138/65 36.5 C (97.7 F) -- 107 22 -- -- 11/02/24 1400 138/62 -- -- 108 21 -- -- 11/02/24 1345 133/62 -- -- 107 23 -- -- 11/02/24 1330 130/55 -- -- 109 (!) 29 97 % -- 11/02/24 1319 (!) 91/45 36.5 C (97.7 F) -- 102 24 97 % -- 11/02/24 1304 (!) 102/49 36.7 C (98 F) -- 106 23 97 % -- 11/02/24 1300 (!) 102/49 -- -- 107 20 97 % -- 11/02/24 1245 114/63 -- -- 110 25 97 % -- 11/02/24 1230 113/68 -- -- 109 18 97 % -- 11/02/24 1215 119/73 -- -- 105 21 100 % -- 11/02/24 1200 (!) 140/79 -- -- 103 23 100 % -- 11/02/24 1150 (!) 147/78 36.3 C (97.4 F) Tympanic 103 23 100 % -- 11/02/24 0715 (!) 174/96 37.6 C (99.6 F) Temporal 110 18 98 % -- 11/02/24 0618 -- -- -- -- -- -- 53.2 kg (117 lb 3.2 oz) 11/01/242023 159/92 37.4 C (99.3 F) Temporal 114 16 97 % -- Post-Dialysis Arterial Catheter Locking Solution: Heparin (1000units:1ml) Volume (ml): 2.0 Venous Catheter Locking Solution: Heparin (1000units:1ml) Volume (ml): 2.1 Post-Treatment Procedures: Blood returned, Catheter capped, clamped and heparinized x 2 ports (Red CUROS Caps) Machine Disinfection Process: Acid/Vinegar Clean, Heat Disinfect, Exterior Machine Disinfection Rinseback Volume (mL): 300 mL Total Liters Processed (L/min): 66.4 L/min Dialyzer Clearance: Clear Hemodialysis Intake (ml): 500 ml Hemodialysis Output (ml): 1500 ml NET Removed (ml): 1000 ml Tolerated Treatment: Good Interventions Taken: (None needed at this time) Patient Response to Treatment: The patient denied any discomfort due to the treatment Physician Notified: No Patient Disposition: (Remain in room) Charge: $ IP Hemodialysis Charge: Hemodialysis Provider Notification Provider Notification Reason for Communication: Critical Lab Value (Hgb 6.3) Provider Name: Dr. Somers Provider Role: Hospitalist Method of Communication: Secure chat Response: See orders Notification Date: 11/02/24 Notification Time: 1230 Provider Role: Hospitalist Method of Communication: Secure chat Response: See orders Notification Time: 1230 Handoff complete and report given to Primary RN at 1842. Primary RN (First Initial, Last Name, Title): Manny Adkins RN Education Person Educated: Patient Knowledge Base: Unable to assess due patient orientation Barriers to Learning?: Yes, including patient orientation Preferred method of Learning: Written Topic(s): Emergency, Access Care, Signs and Symptoms of Infection, and Fluid Management Teaching Tools: Explanation Response to Education: Requires Follow-up [1] No Known Allergies [2] Patient Active Problem List Diagnosis Hypertensive emergency Gastrointestinal hemorrhage, unspecified gastrointestinal hemorrhage type Anemia Pulmonary edema, acute (HCC) Shortness of breath COVID-19 Edema of left lower extremity Sepsis, due to unspecified organism, unspecified whether acute organ dysfunction present (HCC) Seizures (HCC) ESRD (end stage renal disease) (HCC) Dialysis patient (HCC) [3] Patient yelling my arm is bleeding, this nurse went in and left arm fistula bloody all over bed, patient not sure what happened, cleaned patient up and no further bleeding observed. Received phone call from Deshawn Burks. He requests updates about upcoming interventions if able. Phone number verified in chart Patient transferred to [facility] with the transport team.she is going to [facility] room number [id number].Handoff given to the [facility] nurse. Patient Name: Apoorva Gonzalez Patient : 1950 Acct: [id number] Date of Admission: 10/22/2024 Room/Bed: B2258/B2-258 A Code Status: DNR-CCA Allergies: Allergies[1] Diagnosis: Problem List[2] Treatment: Hemodialysis 1:1 Priority: Routine Location: Bedside Diabetic: No NPO: No Isolation Precautions: Contact Consent for Treatment Verified: Yes Blood Consent Verified: Not Applicable ICEBOAT: Identify, Consent, Equipment, HepB Status, Orders Complete, Access Verified, Timeliness Second Clinician Verifying: + Time out performed prior to access at 1125. Report Received from Primary RN at 1014. Primary RN (First Initial, Last Name, Title): Flo Hansen RN Incapacitated Nurse Education Completed: Yes VD HBsAg ONLY: Date Drawn: September 15, 2024 Results: Negative HBsAb: Date Drawn: September 15, 2024 Results: Immune >10 Order Dialyzer: Nipro Na+ Modeling: Not Applicable Dialysate Temperature (C): 36 Blood Flow Rate (BFR): 400 Dialysate Flow Rate (DFR): 600 Access to be Utilized Access: Tunneled Catheter Location: Internal Jugular Side: Left Needle gauge: Not Applicable + Bruit/Thrill: Not Applicable First Use X-ray Verified: Not Applicable OK to use line order: Yes Site Assessment: Signs and Symptoms of Infection/Inflammation: None If yes: Not Applicable Dressing: Dry and Intact Site Prep: Medical Aseptic Technique Dressing Changed this Treatment: No If yes, by whom: NA - not changed today Date of Last Dressing Change: October 27, [address]?: Yes Red Alcohol Caps in place?: Yes Gauze Dressing?: No Non-Dialysis Use?: No Comment: Flows: Good and Patent If access problem, who was notified: Pre and Post-Assessment Patient Vitals for the past 8 hrs: Level of Consciousness Oriented X Heart Rhythm O2 Device Bilateral Breath Sounds Skin Color Skin Condition/Temp Abdomen Inspection Bowel Sounds (All Quadrants) Edema Generalized Edema RUE Edema LUE Edema RLE Edema LLE Edema 10/31/24 0815 -- -- -- -- -- [place];Red Warm;Dry Soft;Flat Active Left lower extremity;Right lower extremity Non-pitting None None None None 10/31/24 1116 Alert (0) 2 Regular None (Room air) Diminished [place] Warm;Dry Soft -- Left lower extremity -- -- -- -- +1 10/31/24 1440 Alert (0) 2 Regular None (Room air) Diminished [place] Warm;Dry Soft Active Left lower extremity -- -- -- -- +1 Labs Lab Results Component Value Date/Time WBC 17.2 (H) 10/31/2024 0526 HGB 8.5 (L) 10/31/2024 0526 HGB 9.1 10/05/2024 1419 HCT 26.6 (L) 10/31/2024525 PLT 531 (H) 10/31/2024525 NA 143 10/31/2024525 K 4.4 10/31/2024525 CL 110 (H) 10/31/2024525 CO2 23 10/31/2024525 BUN 27 (H) 10/31/2024525 CREATININE 4.44 (H) 10/31/2024525 CALCIUM 8.0 (L) 10/31/2024525 PHOS 2.7 10/26/2024656 IV Drips and Rate/Dose Continuous Meds[3] Safety - Before each treatment: Dialysis Machine No.: [id number] RO Machine Number: [id number] Dialyzer Lot No.: [id number] Tubing Lot Number: [id number] All Connections Secure: Yes Venous Parameters Set: Yes Arterial Parameters Set: Yes NS Bag: Yes Saline Line Double Clamped: Yes Dialyzer: Nipro Prime Volume (mL): 200 mL RO Machine Number: [id number] RO Machine Log Sheet Completed: Yes Machine Alarm Self Test: Completed, Passed (Machine passed all tests at 1057) (10/31/24 1116) Air Foam Detector: Tested, Proper Function Extracorporeal Circuit Tested for Integrity: Yes Machine Conductivity: 14.1 Manual Conductivity: 14 Manual Ph: 7.4 Bleach Test (Neg): Yes Bath Temperature: 36 C (96.8 F) Conductivity Meter Serial #: [id number] Machine Functioning Alarm Free? Yes Dialysis Bath: K+ (Potassium): 3 Ca+ (Calcium): 2.5 Na+ (Sodium): 138 HCO3 (Bicarb): 32 Bicarbonate Concentrate Lot No.: [id number] Acid Concentrate Lot No.: [id number] Chlorine Testing - Before each treatment and every 4 hours: Time On: 1130 Time Off: 1430 Treatment Goal: 1L Weight Height: 162.6 cm (5' 4) (10/26/248) Weight: 51 kg (112 lb 7 oz) (10/31/24519) BMI (Calculated): 19.29 (10/31/24519) 1st check: less than 0.1 ppm at: 1126 2nd check: less than 0.1 ppm at: 1250 3rd check: Not Applicable (if greater than 0.1 ppm, then check every 30 minutes from secondary) Access Flows and Pressures Patient Vitals for the past 8 hrs: Blood Flow Rate (mL/min) Ultrafiltration Rate (ml/hr) Arterial Pressure (mmHg) Venous Pressure (mmHg) TMP DFR Access Visible Intra-Hemodialysis Comments 10/31/24 1130 200 mL/min 500 ml/hr -50 mmHg 30 mmHg 80 600 Yes Treatment initiated, and consent verified by this RN. All lines are secure, bed is in locked and lowest position, call light is within patient's reach 10/31/24 1134 400 mL/min 500 ml/hr -140 mmHg 140 mmHg 60 600 Yes BFR to 400. UF Removed- 53 10/31/24 1145 400 mL/min 500 ml/hr -160 mmHg 150 mmHg 50 600 Yes Patient sleeping, UF Removed- 156 10/31/24 1200 400 mL/min 500 ml/hr -170 mmHg 160 mmHg 50 600 Yes Patient reminded to leave CVC site uncovered, UF Removed- 267 10/31/24 1215 400 mL/min 500 ml/hr -190 mmHg 160 mmHg 50 600 Yes pt resting, uf removal 389 10/31/24 1230 400 mL/min 500 ml/hr -190 mmHg 160 mmHg [address] Dorantes at bedside 10/31/24 1245 400 mL/min 500 ml/hr -200 mmHg 160 mmHg 50 600 Yes Patient resting, UF Removed- 640 10/31/24 1300 400 mL/min 500 ml/hr -200 mmHg 170 mmHg 50 600 Yes Patient's family at bedside, UF Removed- 773 10/31/24 1315 400 mL/min 500 ml/hr -180 mmHg 160 mmHg 50 600 Yes family at bedside, uf removal 883 10/31/24 1330 400 mL/min 500 ml/hr -200 mmHg 160 mmHg 50 600 Yes pt tolerating treatment well, uf removal 1058 10/31/24 1345 400 mL/min 500 ml/hr -200 mmHg 160 mmHg 50 600 Yes Patient's family at bedside, UF Removed- 1129 10/31/24 1400 400 mL/min 500 ml/hr -190 mmHg 160 mmHg 50 600 Yes Patient's family at bedside, UF Removed- 1249 10/31/24 1415 400 mL/min 500 ml/hr -190 mmHg 160 mmHg 50 600 Yes pt resting, uf removal 1368 10/31/24 1430 0 mL/min 500 ml/hr -- -- -- -- Yes Treatment completed as ordred, blood returned per policy. UF Removed- 1500 Vital Signs Patient Vitals for the past 24 hrs: BP Temp Temp src Pulse Resp SpO2 Weight 10/31/24 1440 (!) 178/108 36.5 C (97.7 F) -- 104 16 98 % -- 10/31/24 1430 (!) 153/108 -- -- 108 -- -- -- 10/31/24 1415 (!) 175/98 -- -- 111 -- -- -- 10/31/24 1400 151/92 -- -- 110 -- -- -- 10/31/24 1345 156/90 -- -- 110 -- -- -- 10/31/24 1330 (!) 161/92 -- -- 112 -- -- -- 10/31/24 1315 127/92 -- -- 110 -- -- -- 10/31/24 1300 154/95 -- -- 113 -- -- -- 10/31/24 1245 153/98 -- -- 108 -- -- -- 10/31/24 1230 (!) 158/107 -- -- 109 -- -- -- 10/31/24 1215 (!) 146/101 -- -- 103 -- -- -- 10/31/24 1200 158/97 -- -- 104 -- -- -- 10/31/24 1145 132/64 -- -- 103 -- -- -- 10/31/24 1134 (!) 163/87 -- -- 98 -- -- -- 10/31/24 1130 158/87 -- -- 96 -- -- -- 10/31/24 1116 153/93 36.5 C (97.7 F) Temporal 98 16 98 % -- 10/31/24 0827 (!) 163/94 36.4 C (97.6 F) Temporal 97 18 99 % -- 10/31/24 0520 -- -- -- -- -- -- 51 kg (112 lb 7 oz) 10/30/242037 (!) 168/96 37.1 C (98.8 F) Temporal 110 16 98 % -- 10/30/24 1518 (!) 168/97 36.7 C (98 F) Temporal 99 18 100 % -- Post-Dialysis Arterial Catheter Locking Solution: Heparin (1000units:1ml) Volume (ml): 2.0 Venous Catheter Locking Solution: Heparin (1000units:1ml) Volume (ml): 2.1 Post-Treatment Procedures: Blood returned, Catheter capped, clamped and heparinized x 2 ports (Red CUROS Caps) Machine Disinfection Process: Exterior Machine Disinfection Rinseback Volume (mL): 300 mL Total Liters Processed (L/min): 65.4 L/min Dialyzer Clearance: Clear Hemodialysis Intake (ml): 500 ml Hemodialysis Output (ml): 1500 ml NET Removed (ml): 1000 ml Tolerated Treatment: Good Interventions Taken: (None needed) Patient Response to Treatment: The patient denied discomfort due to the treatment, and had stable vital signs at the time of the treatment end. Physician Notified: No Patient Disposition: (Remain in Room) Charge: $ IP Hemodialysis Charge: Hemodialysis Provider Notification Provider Notification Reason for Communication: Other (Comment) Provider Name: Provider Role: Hospitalist Method of Communication: Secure chat Response: See orders Notification Date: 10/29/24 Notification Time: 08 Provider Role: Hospitalist Method of Communication: Secure chat Response: See orders Notification Time: 08 Handoff complete and report given to Primary RN at 1449. Primary RN (First Initial, Last Name, Title): Tyrone Gonzales RN Education Person Educated: Patient Knowledge Base: Substantial Barriers to Learning?: None Preferred method of Learning: Oral Topic(s): Emergency, Access Care, Signs and Symptoms of Infection, and Fluid Management Teaching Tools: Explanation Response to Education: Verbalized Understanding [1] No Known Allergies [2] Patient Active Problem List Diagnosis Hypertensive emergency Gastrointestinal hemorrhage, unspecified gastrointestinal hemorrhage type Anemia Pulmonary edema, acute (HCC) Shortness of breath COVID-19 Edema of left lower extremity Sepsis, due to unspecified organism, unspecified whether acute organ dysfunction present (HCC) [3] Patient ate a whole meal and drink and was starving and she is a feed, tele unmet and sometimes she has ST elevation for seconds and V-tach with no symptoms. Patient tolerate swallow very well. Patient Name: Apoorva Gonzalez Patient : 1950 Acct: [id number] Date of Admission: 10/22/2024 Room[facility]Bed: [facility] A Code Status: DNR-CCA Allergies: Allergies[1] Diagnosis: Problem List[2] Treatment: Hemodialysis 1:1 Priority: Routine Location: Bedside Diabetic: No NPO: No Isolation Precautions: Contact Consent for Treatment Verified: Yes Blood Consent Verified: Not Applicable ICEBOAT: Identify, Consent, Equipment, HepB Status, Orders Complete, Access Verified, Timeliness Second Clinician Verifying: Tung Rivas RN Time out performed prior to access at 0910. Report Received from Primary RN at 0810. Primary RN (First Initial, Last Name, Title): Tung Rivas RN Incapacitated Nurse Education Completed: Yes RC HBsAg ONLY: Date Drawn: September 15, 2024 Results: Negative HBsAb: Date Drawn: September 15, 2024 Results: Immune >10 Order Dialyzer: Nipro Na+ Modeling: Not Applicable Dialysate Temperature (C): 36 Blood Flow Rate (BFR): 400 Dialysate Flow Rate (DFR): 600 Access to be Utilized Access: Tunneled Catheter Location: Internal Jugular Side: Right Needle gauge: Not Applicable + Bruit/Thrill: Not Applicable First Use X-ray Verified: Not Applicable OK to use line order: Yes Site Assessment: Signs and Symptoms of Infection/Inflammation: None If yes: Not Applicable Dressing: Dry and Intact Site Prep: Medical Aseptic Technique Dressing Changed this Treatment: No If yes, by whom: NA - not changed today Date of Last Dressing Change: October 26, [address]?: Yes Red Alcohol Caps in place?: No Gauze Dressing?: Yes Non-Dialysis Use?: No Comment: Flows: Good and Patent If access problem, who was notified: Pre and Post-Assessment Patient Vitals for the past 8 hrs: Level of Consciousness Oriented X Heart Rhythm O2 Device Bilateral Breath Sounds Skin Color Skin Condition/Temp Abdomen Inspection Bowel Sounds (All Quadrants) Edema Generalized Edema RLE Edema LLE Edema Pre-Hemodialysis Comments 10/28/24 0735 -- -- -- -- Clear;Diminished [place];Red Warm;Dry Soft Active -- -- -- -- -- 10/28/24 09 Alert (0) 4 Regular None (Room air) Clear;Diminished [place];Red Warm;Dry Soft Active Left lower extremity;Right lower extremity -- +1 +1 Patient is agreeable to dialysis, consent verified prior to treatment 10/28/24 1225 Alert (0) 4 Regular None (Room air) Clear;Diminished [place];Red Warm;Dry Soft Active Left lower extremity Non-pitting Non-pitting Non-pitting -- Labs Lab Results Component Value Date/Time WBC 26.6 (H) 10/28/2024 0515 HGB 9.3 (L) 10/28/2024 0515 HGB 9.1 10/05/2024 1419 HCT 28.0 (L) 10/28/2024 0515 PLT 460 (H) 10/28/2024 0515 NA 144 10/28/2024 0515 K 3.9 10/28/2024 0515 CL 109 (H) 10/28/2024 0515 CO2 24 10/28/2024 0515 BUN 24 (H) 10/28/2024 0515 CREATININE 3.83 (H) 10/28/2024 0515 CALCIUM 8.0 (L) 10/28/2024 0515 PHOS 2.7 10/26/2024 0657 IV Drips and Rate/Dose Continuous Meds[3] Safety - Before each treatment: Dialysis Machine No.: [id number] RO Machine Number: [id number] Dialyzer Lot No.: [id number] Tubing Lot Number: [id number] All Connections Secure: Yes Venous Parameters Set: Yes Arterial Parameters Set: Yes NS Bag: Yes Saline Line Double Clamped: Yes Dialyzer: Nipro Prime Volume (mL): 200 mL RO Machine Number: [id number] RO Machine Log Sheet Completed: Yes Machine Alarm Self Test: Completed, Passed (The machine passed all tests at 0851) (10/28/24 09) Air Foam Detector: Tested, Proper Function Extracorporeal Circuit Tested for Integrity: Yes Machine Conductivity: 14 Manual Conductivity: 14.2 Manual Ph: 7.4 Bleach Test (Neg): Yes Bath Temperature: 36 C (96.8 F) Conductivity Meter Serial #: [id number] Machine Functioning Alarm Free? Yes Dialysis Bath: K+ (Potassium): 3 Ca+ (Calcium): 2.5 Na+ (Sodium): 138 HCO3 (Bicarb): 32 Bicarbonate Concentrate Lot No.: [id number] Acid Concentrate Lot No.: [id number] Chlorine Testing - Before each treatment and every 4 hours: Time On: 0915 Time Off: 1215 Treatment Goal: 1L Weight Height: 162.6 cm (5' 4) (10/26/24 1438) Weight: 52.3 kg (115 lb 4.8 oz) (10/28/24515) BMI (Calculated): 19.78 (10/28/24515) 1st check: less than 0.1 ppm at: 0855 2nd check: less than 0.1 ppm at: 1040 3rd check: Not Applicable (if greater than 0.1 ppm, then check every 30 minutes from secondary) Access Flows and Pressures Patient Vitals for the past 8 hrs: Blood Flow Rate (mL/min) Ultrafiltration Rate (ml/hr) Arterial Pressure (mmHg) Venous Pressure (mmHg) TMP DFR Access Visible Intra-Hemodialysis Comments 10/28/24 0915 200 mL/min 500 ml/hr -30 mmHg 40 mmHg 90 600 Yes Treatment initiated, all lines secure, bed in locked and lowest position, call light is within the patient's reach 10/28/24 0918 350 mL/min 500 ml/hr -260 mmHg 140 mmHg 110 600 Yes Primary RN at beside. BFR to 350, UF Removed- 35 10/28/24 0930 350 mL/min 500 ml/hr -260 mmHg 140 mmHg 110 600 Yes Patient resting, UF Removed- 152 10/28/24 0945 350 mL/min 500 ml/hr -250 mmHg 140 mmHg 110 600 Yes Patient resting, UF Removed- 260 10/28/24 1000 350 mL/min 500 ml/hr -240 mmHg 140 mmHg 100 600 Yes pt resting, uf removal 380 10/28/24 1015 350 mL/min 500 ml/hr -250 mmHg 140 mmHg 100 600 Yes Patient resting, UF Removed- 507 10/28/24 1030 350 mL/min 500 ml/hr -240 mmHg 140 mmHg 100 600 Yes Patient resting, UF Removed- 649 10/28/24 1045 350 mL/min 500 ml/hr -240 mmHg 140 mmHg 110 600 Yes Patient resting, UF Removed- 751 10/28/24 1100 350 mL/min 500 ml/hr -250 mmHg 140 mmHg 110 600 Yes Patient resting, UF Removed- 913 10/28/24 1115 350 mL/min 500 ml/hr -250 mmHg 140 mmHg 110 600 Yes Patient resting, UF Removed- 999 10/28/24 1130 350 mL/min 500 ml/hr -250 mmHg 140 mmHg 110 600 Yes Patient resting, UF Removed- 1136 10/28/24 1145 350 mL/min 500 ml/hr -250 mmHg 140 mmHg 110 600 Yes Patient resting, UF Removed- 1264 10/28/24 1200 350 mL/min 500 ml/hr -250 mmHg 140 mmHg 110 600 Yes Patient resting, UF Removed- 1392 10/28/24 1215 0 mL/min -- -- -- -- -- -- Treatment completed as ordered. Patient's CVC heparinized, capped, and clamped. UF Removed- 1500 Vital Signs Patient Vitals for the past 24 hrs: BP Temp Temp src Pulse Resp SpO2 Weight 10/28/24 1225 (!) 179/101 36.1 C (96.9 F) -- 102 18 97 % -- 10/28/24 1215 (!) 179/97 -- -- 102 -- -- -- 10/28/24 1200 (!) 171/109 -- -- 99 -- -- -- 10/28/24 1145 (!) 177/96 -- -- 102 -- -- -- 10/28/24 1130 (!) 171/93 -- -- 100 -- -- -- 10/28/24 1115 (!) 150/102 -- -- 98 -- -- -- 10/28/24 1100 (!) 161/103 -- -- 100 -- -- -- 10/28/24 1045 155/90 -- -- 104 -- -- -- 10/28/24 1030 149/86 -- -- 103 -- -- -- 10/28/24 1015 157/96 -- -- 100 -- -- -- 10/28/24 1000 (!) 162/86 -- -- 103 -- -- -- 10/28/24 0945 154/87 -- -- 105 -- -- -- 10/28/24 0930 147/93 -- -- 102 -- -- -- 10/28/24 0918 (!) 166/95 -- -- 103 -- -- -- 10/28/24 0915 153/91 -- -- 106 -- -- -- 10/28/24 0906 160/95 36.3 C (97.3 F) Temporal 105 18 99 % -- 10/28/24 0735 (!) 163/91 36.1 C (96.9 F) Temporal 104 16 98 % -- 10/28/24 0516 -- -- -- -- -- -- 52.3 kg (115 lb 4.8 oz) 10/28/24 0419 145/89 36.6 C (97.8 F) Temporal 112 -- 97 % -- 10/28/24 0309 (!) 170/92 36.3 C (97.3 F) Temporal 110 20 98 % -- 10/28/24 0123 148/80 -- -- 102 -- -- -- 10/27/24 2340 (!) 171/102 36.6 C (97.9 F) Temporal 120 20 100 % -- 10/27/24 2259 (!) 165/98 36.5 C (97.7 F) Temporal 118 18 98 % -- 10/27/24 1942 (!) 173/103 36.6 C (97.8 F) Temporal 115 22 95 % -- 10/27/24 1818 -- 36.4 C (97.5 F) Temporal 105 18 93 % -- 10/27/24 1308 138/76 36.9 C (98.4 F) -- 98 18 -- -- Post-Dialysis Arterial Catheter Locking Solution: Heparin (1000units:1ml) Volume (ml): 2.0 Venous Catheter Locking Solution: Heparin (1000units:1ml) Volume (ml): 2.1 Post-Treatment Procedures: Blood returned, Catheter capped, clamped and heparinized x 2 ports Machine Disinfection Process: Exterior Machine Disinfection Rinseback Volume (mL): 300 mL Total Liters Processed (L/min): 56.2 L/min Dialyzer Clearance: Clear Hemodialysis Intake (ml): 500 ml Hemodialysis Output (ml): 1500 ml NET Removed (ml): 1000 ml Tolerated Treatment: Good Interventions Taken: (None Needed) Patient Response to Treatment: The patient denied any discomfort due to her treatment and her Primary RN is aware of her blood pressure. Physician Notified: No Patient Disposition: Other (Comment) (Remain in room) Charge: $ IP Hemodialysis Charge: Hemodialysis Provider Notification Provider Notification Reason for Communication: Evaluate (Pt temp 100.5f Hr at times tachy 115 - 130, not sustained currently 117 on monitor. AM Hgb was 6.9 WBC 35.0 , and glucose was 72 with am labs did you want her on glucose checks? She remains at times A/o to self/discoriented Poor and limited IV access.) Provider Name: Dr. Zambrano Provider Role: Attending physician Method of Communication: Secure chat Response: See orders (Transfer to ICU) Notification Date: 10/23/24 Notification Time: 807 Provider Role: Attending physician Method of Communication: Secure chat Response: See orders (Transfer to ICU) Notification Time: 807 Handoff complete and report given to Primary RN at 1222. Primary RN (First Initial, Last Name, Title): Rob Amanda RN Education Person Educated: Patient Knowledge Base: Substantial Barriers to Learning?: None Preferred method of Learning: Oral Topic(s): Emergency, Access Care, Signs and Symptoms of Infection, and Fluid Management Teaching Tools: Explanation Response to Education: Verbalized Understanding [1] No Known Allergies [2] Patient Active Problem List Diagnosis Hypertensive emergency Gastrointestinal hemorrhage, unspecified gastrointestinal hemorrhage type Anemia Pulmonary edema, acute (HCC) Shortness of breath COVID-19 Edema of left lower extremity Sepsis, due to unspecified organism, unspecified whether acute organ dysfunction present (HCC) [3] Hypertensive with tx even after receiving medication to lower BP. Pt had no c/o with tx today. Patient Name: Apoorva Gonzalez Patient : 1950 Acct: [id number] Date of Admission: 10/22/2024 Room/Bed: A Code Status: Full Code Allergies: Allergies[1] Diagnosis: Problem List[2] Treatment: Hemodialysis 1:1 Priority: Routine Location: ICU Diabetic: Yes NPO: No Isolation Precautions: Contact Consent for Treatment Verified: Yes Blood Consent Verified: Not Applicable ICEBOAT: Identify, Consent, Equipment, HepB Status, Orders Complete, Access Verified, Timeliness Second Clinician Verifying: Susana Keating RN Time out performed prior to access at 1035. Report Received from Primary RN at 0983. Primary RN (First Initial, Last Name, Title): Susana Keating RN Incapacitated Nurse Education Completed: Yes HBsAg ONLY: Date Drawn: September 15, 2024 Results: Negative HBsAb: Date Drawn: September 15, 2024 Results: Immune >10 Order Dialyzer: Nipro Na+ Modeling: Not Applicable Dialysate Temperature (C): 36 Blood Flow Rate (BFR): 350 Dialysate Flow Rate (DFR): 600 Access to be Utilized Access: Tunneled Catheter Location: Subclavian Side: Left Needle gauge: Not Applicable + Bruit/Thrill: Not Applicable First Use X-ray Verified: Yes OK to use line order: Yes Site Assessment: Signs and Symptoms of Infection/Inflammation: None If yes: Not Applicable Dressing: Dry and Intact Site Prep: Medical Aseptic Technique Dressing Changed this Treatment: Yes If yes, by whom: Bedside RN Date of Last Dressing Change: October 26, [address]?: Yes Red Alcohol Caps in place?: Yes Gauze Dressing?: No Non-Dialysis Use?: No Comment: Flows: Good If access problem, who was notified: Pre and Post-Assessment Patient Vitals for the past 8 hrs: Level of Consciousness Oriented X Heart Rhythm Respiratory Pattern O2 Device Bilateral Breath Sounds Skin Condition/Temp Abdomen Inspection Bowel Sounds (All Quadrants) RUE Edema LUE Edema RLE Edema LLE Edema Pre-Hemodialysis Comments 10/26/24 0930 -- -- -- -- -- -- -- -- -- -- -- -- -- pre report given by Susana Keating RN 10/26/24 1000 Responds to voice (1) x2 Regular Other (Comment) None (Room air) Diminished Warm;Dry Soft Active None None None +1 -- 10/26/24 1043 -- -- -- -- -- Diminished Dry;Warm Soft Active None None None None -- 10/26/24 1345 -- -- -- -- -- -- Dry;Warm -- -- -- -- -- -- -- Labs Lab Results Component Value Date/Time WBC 25.4 (H) 10/26/2024 0657 HGB 7.5 (L) 10/26/2024 0657 HGB 9.1 10/05/2024 1419 HCT 23.3 (L) 10/26/2024 0657 PLT 357 10/26/2024 0657 NA 143 10/26/2024 0657 K 3.7 10/26/2024 0657 CL 106 10/26/2024 0657 CO2 25 10/26/2024 0657 BUN 24 (H) 10/26/2024 0657 CREATININE 4.91 (H) 10/26/2024 0657 CALCIUM 7.8 (L) 10/26/2024 0657 PHOS 2.7 10/26/2024 0657 IV Drips and Rate/Dose Continuous Meds[3] Safety - Before each treatment: Dialysis Machine No.: [id number] Machine Number: [id number] Dialyzer Lot No.: [id number] Tubing Lot Number: [id number] All Connections Secure: Yes Venous Parameters Set: Yes Arterial Parameters Set: Yes NS Bag: Yes Saline Line Double Clamped: Yes Dialyzer: Nipro Prime Volume (mL): 200 mL Machine Number: [id number] RO Machine Log Sheet Completed: Yes Machine Alarm Self Test: Completed, Passed (10/26/24 1035) Air Foam Detector: Tested, Proper Function, pH Reading Extracorporeal Circuit Tested for Integrity: Yes Machine Conductivity: 14 Manual Conductivity: 14 Manual Ph: 7.2 Bleach Test (Neg): Yes Bath Temperature: 36 C (96.8 F) Conductivity Meter Serial #: [id number] Machine Functioning Alarm Free? Yes Dialysis Bath: K+ (Potassium): 3 Ca+ (Calcium): 2.5 Na+ (Sodium): 138 HCO3 (Bicarb): 32 Bicarbonate Concentrate Lot No.: [id number] Acid Concentrate Lot No.: [id number] Chlorine Testing - Before each treatment and every 4 hours: Time On: 1035 Time Off: 1035 Treatment Goal: 1 Weight Height: 162.6 cm (5' 4) (10/23/24 1034) Weight: 51.3 kg (113 lb 1.5 oz) (10/25/2449) BMI (Calculated): 19.4 (10/25/2449) 1st check: less than 0.1 ppm at: 0951 2nd check: less than 0.1 ppm at: n/a 3rd check: Not Applicable (if greater than 0.1 ppm, then check every 30 minutes from secondary) Access Flows and Pressures Patient Vitals for the past 8 hrs: Blood Flow Rate (mL/min) Ultrafiltration Rate (ml/hr) Arterial Pressure (mmHg) Venous Pressure (mmHg) TMP DFR Access Visible Intra-Hemodialysis Comments 10/26/24 1035 350 mL/min 470 ml/hr -110 mmHg 120 mmHg 100 600 Yes HD started per policy without difficulty, no change in condition noted, LVSD 10/26/24 1045 350 mL/min 470 ml/hr -120 mmHg 130 mmHg 100 600 Yes LVSD, no sign of acute distress 10/26/24 1100 350 mL/min 470 ml/hr -120 mmHg 130 mmHg 100 600 Yes LVSD, denies needs, nods head yes when asked if feeling ok 10/26/24 1115 350 mL/min 470 ml/hr -120 mmHg 140 mmHg 100 600 Yes LVSD, denies needs after getting warm blankets 10/26/24 1130 350 mL/min 470 ml/hr -120 mmHg 140 mmHg 100 600 Yes LVSD, eyes clsoed, no sign of acute distress 10/26/24 1145 350 mL/min 470 ml/hr -120 mmHg 140 mmHg 100 600 Yes LVSD 10/26/24 1200 350 mL/min 470 ml/hr -120 mmHg 140 mmHg 100 600 Yes LVSD, denies needs 10/26/24 1215 350 mL/min 470 ml/hr -120 mmHg 130 mmHg 100 600 Yes LVSD, eyes close, resting 10/26/24 1230 350 mL/min 470 ml/hr -130 mmHg 140 mmHg 100 600 Yes LVSD, denies needs 10/26/24 1245 350 mL/min 470 ml/hr -120 mmHg 130 mmHg 100 600 Yes 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, 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 10/26/24 1300 350 mL/min 470 ml/hr -120 mmHg 130 mmHg 100 600 Yes LVSD, 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, waiting on reply from DR pulido RN 10/26/24 1315 350 mL/min 470 ml/hr -120 mmHg 130 mmHg 100 600 Yes LVSD, eyes closed, resting 10/26/24 1335 350 mL/min -- -120 mmHg 130 mmHg 100 600 Yes LVSD, tx completed, blood rinsed back per policy without difficulty Vital Signs Patient Vitals for the past 24 hrs: BP Temp Temp src Pulse Resp SpO2 10/26/24 1345 -- -- -- -- 14 -- 10/26/24 1335 (!) 177/106 -- -- 104 15 -- 10/26/24 1315 (!) 158/106 -- -- 100 15 -- 10/26/24 1300 (!) 181/101 -- -- 103 16 -- 10/26/24 1245 (!) 184/99 -- -- 97 13 -- 10/26/24 1230 (!) 177/107 -- -- 99 14 -- 10/26/24 1215 (!) 173/107 -- -- 95 15 -- 10/26/24 1200 (!) 169/102 -- -- 97 15 -- 10/26/24 1145 (!) 172/92 -- -- 93 16 -- 10/26/24 1130 (!) 168/87 -- -- 93 13 -- 10/26/24 1115 (!) 196/103 -- -- 109 14 -- 10/26/24 1100 (!) 182/109 -- -- 104 15 -- 10/26/24 1045 158/96 -- -- 103 14 -- 10/26/24 1035 (!) 165/82 -- -- 106 15 -- 10/26/24 1000 144/83 -- -- 108 -- -- 10/26/24 0958 151/85 37.3 C (99.2 F) Oral 109 14 96 % 10/26/24 0733 -- -- -- 106 -- -- 10/26/24 0704 -- 37.6 C (99.6 F) Oral -- -- -- 10/26/24 0653 160/98 -- -- 107 -- -- 10/26/24 0002 151/85 37.1 C (98.8 F) Oral 100 16 -- 10/25/246 139/95 -- -- 103 -- -- 10/25/242100 (!) 172/89 -- -- 104 -- -- 10/25/242048 (!) 186/99 -- -- 111 -- -- 10/25/241926 (!) 180/88 -- -- 104 -- -- 10/25/241923 (!) 180/88 37.1 C (98.8 F) -- -- -- 96 % Post-Dialysis Arterial Catheter Locking Solution: Heparin (1000units:1ml) Volume (ml): 2 Venous Catheter Locking Solution: Heparin (1000units:1ml) Volume (ml): 2.1 Post-Treatment Procedures: Blood returned, Catheter capped, clamped and heparinized x 2 ports Machine Disinfection Process: Exterior Machine Disinfection Rinseback Volume (mL): 200 mL Total Liters Processed (L/min): 57.4 L/min Dialyzer Clearance: Lightly streaked Hemodialysis Intake (ml): 400 ml Hemodialysis Output (ml): 1400 ml NET Removed (ml): 1000 ml Tolerated Treatment: Fair (hypertensive with tx) Interventions Taken: Other (Comment) (None Needed) Patient Response to Treatment: pt had no c/o with tx, hypertsion with HD tx today Physician Notified: No Patient Disposition: Remain in ICU/ED Charge: $ IP Hemodialysis Charge: Hemodialysis Provider Notification Provider Notification Reason for Communication: Evaluate (Pt temp 100.5f Hr at times tachy 115 - 130, not sustained currently 117 on monitor. AM Hgb was 6.9 WBC 35.0 , and glucose was 72 with am labs did you want her on glucose checks? She remains at times A/o to self/discoriented Poor and limited IV access.) Provider Name: Dr. Zambrano Provider Role: Attending physician Method of Communication: Secure chat Response: See orders (Transfer to ICU) Notification Date: 10/23/24 Notification Time: 807 Provider Role: Attending physician Method of Communication: Secure chat Response: See orders (Transfer to ICU) Notification Time: 807 Handoff complete and report given to Primary RN at 1359. Primary RN (First Initial, Last Name, Title): susana Keating RN Education Person Educated: Patient Knowledge Base: Minimal Barriers to Learning?: Yes, including current medical condition Preferred method of Learning: AIRAM Topic(s): Procedural Teaching Tools: Explanation Response to Education: Requires Follow-up [1] No Known Allergies [2] Patient Active Problem List Diagnosis Hypertensive emergency Gastrointestinal hemorrhage, unspecified gastrointestinal hemorrhage type Anemia Pulmonary edema, acute (HCC) Shortness of breath COVID-19 Edema of left lower extremity Sepsis, due to unspecified organism, unspecified whether acute organ dysfunction present (HCC) [3] Patient Name: Apoorva Gonzalez Patient : 1950 Acct: [id number] Date of Admission: 10/22/2024 Room[facility]Bed: [facility] A Code Status: Full Code Allergies: Allergies[1] Diagnosis: Problem List[2] Treatment: Hemodialysis 1:1 Priority: Routine Location: ICU Diabetic: No NPO: No Isolation Precautions: Dialysis Consent for Treatment Verified: Yes Blood Consent Verified: Yes ICEBOAT: Identify, Consent, Equipment, HepB Status, Orders Complete, Access Verified, Timeliness Second Clinician Verifying: Ottoniel Cunha RN Time out performed prior to access at 0932. Report Received from Primary RN at 0830. Primary RN (First Initial, Last Name, Title): Alphonse Emanuel RN Incapacitated Nurse Education Completed: Yes MF HBsAg ONLY: Date Drawn: September 15, 2024 Results: Negative HBsAb: Date Drawn: 2024 Results: Immune >10 Order Dialyzer: Nipro Na+ Modeling: Not Applicable Dialysate Temperature (C): 36 Blood Flow Rate (BFR): 400 Dialysate Flow Rate (DFR): 600 Access to be Utilized Access: Tunneled Catheter Location: Internal Jugular Side: Left Needle gauge: Not Applicable + Bruit/Thrill: Not Applicable First Use X-ray Verified: Not Applicable OK to use line order: present on admission Site Assessment: Signs and Symptoms of Infection/Inflammation: None If yes: Not Applicable Dressing: Dry and Intact Site Prep: Medical Aseptic Technique Dressing Changed this Treatment: No If yes, by whom: NA - not changed today Date of Last Dressing Change: October 23, [address]?: Yes Red Alcohol Caps in place?: Yes Gauze Dressing?: No Non-Dialysis Use?: No Comment: Flows: Good and Patent If access problem, who was notified: Pre and Post-Assessment Patient Vitals for the past 8 hrs: Level of Consciousness Oriented X Heart Rhythm Respiratory Pattern O2 Device Bilateral Breath Sounds Skin Condition/Temp Abdomen Inspection Bowel Sounds (All Quadrants) RUE Edema LUE Edema RLE Edema LLE Edema Pre-Hemodialysis Comments 10/24/24 0802 -- -- -- -- -- Clear;Diminished Warm;Dry Soft;Rounded Active None None None None -- 10/24/24 0919 Responds to voice (1) 1 Regular Other (Comment) None (Room air) Diminished;Clear Warm;Dry Soft Active -- -- None +1 Patient agreeble to treatment, but unable to sign consent due to orientation. Patient's POA contacted to obtain consent. 10/24/24 0937 -- -- -- -- -- Diminished -- -- -- -- -- -- -- -- 10/24/24 1247 Responds to voice (1) 1 Regular -- None (Room air) Diminished;Clear Warm;Dry Soft Active -- -- -- +1 -- Labs Lab Results Component Value Date/Time WBC 31.2 (HH) 10/24/2024 0649 HGB 7.5 (L) 10/24/2024 1217 HGB 9.1 10/05/2024 1419 HCT 23.3 (L) 10/24/2024 1217 PLT 316 10/24/2024 0649 NA 138 10/24/2024 0649 K 3.5 10/24/2024 0649 CL 101 10/24/2024 0649 CO2 22 (L) 10/24/2024 0649 BUN 40 (H) 10/24/2024 0649 CREATININE 7.06 (H) 10/24/2024 0649 CALCIUM 7.6 (L) 10/24/2024 0649 PHOS 4.6 10/24/2024 0649 IV Drips and Rate/Dose Continuous Meds[3] Safety - Before each treatment: Dialysis Machine No.: [id number] RO Machine Number: [id number] Dialyzer Lot No.: [id number] Tubing Lot Number: [id number] All Connections Secure: Yes Venous Parameters Set: Yes Arterial Parameters Set: Yes NS Bag: Yes Saline Line Double Clamped: Yes Dialyzer: Nipro Prime Volume (mL): 200 mL RO Machine Number: [id number] RO Machine Log Sheet Completed: Yes Machine Alarm Self Test: Completed, Passed (Machine passed all tests at 0916) (10/24/24 0919) Air Foam Detector: Tested, Proper Function Extracorporeal Circuit Tested for Integrity: Yes Machine Conductivity: 14.0 Manual Conductivity: 14.2 Manual Ph: 7.4 Bleach Test (Neg): Yes Bath Temperature: 36 C (96.8 F) Conductivity Meter Serial #: [id number] Machine Functioning Alarm Free? Yes Dialysis Bath: K+ (Potassium): 3 Ca+ (Calcium): 2.5 Na+ (Sodium): 138 HCO3 (Bicarb): 32 Chlorine Testing - Before each treatment and every 4 hours: Time On: 0937 Time Off: 1237 Treatment Goal: 1L Weight Height: 162.6 cm (5' 4) (10/23/24 1034) Weight: 48.3 kg (106 lb 7.7 oz) (10/22/24 1508) 1st check: less than 0.1 ppm at: 0912 2nd check: less than 0.1 ppm at: 1044 3rd check: Not Applicable (if greater than 0.1 ppm, then check every 30 minutes from secondary) Access Flows and Pressures Patient Vitals for the past 8 hrs: Blood Flow Rate (mL/min) Ultrafiltration Rate (ml/hr) Arterial Pressure (mmHg) Venous Pressure (mmHg) TMP DFR Access Visible Intra-Hemodialysis Comments 10/24/24 0937 200 mL/min 500 ml/hr -30 mmHg 20 mmHg 90 600 Yes Treatment initiated, patient's bed in lowest position, and call light is within reach 10/24/24 0945 400 mL/min 500 ml/hr -90 mmHg 120 mmHg 120 600 Yes BFR increased to 400, Primary RN at bedside to administer blood product 10/24/24 1000 400 mL/min 500 ml/hr -100 mmHg 140 mmHg 120 600 Yes Patient resting, UF Removed- 224 10/24/24 1015 400 mL/min 500 ml/hr -110 mmHg 140 mmHg 110 600 Yes Patient resting, UF Removed- 331 10/24/24 1030 400 mL/min 500 ml/hr -120 mmHg 150 mmHg 110 600 Yes Patient resting, UF Removed- 473 10/24/24 1045 400 mL/min 500 ml/hr -120 mmHg 160 mmHg 120 600 Yes pt resting, uf removal 589 10/24/24 1100 400 mL/min 500 ml/hr -130 mmHg 160 mmHg 110 600 Yes Patient resting, UF Removed- 726 10/24/24 1115 400 mL/min 500 ml/hr -130 mmHg 160 mmHg 120 600 Yes Primary RN at bedside to complete blood tranfusion, UF Removed- 833 10/24/24 1130 400 mL/min 500 ml/hr -130 mmHg 160 mmHg 110 600 Yes Patient resting, UF Removed- 941 10/24/24 1145 400 mL/min 500 ml/hr -130 mmHg 160 mmHg 120 600 Yes Bicarb changed, UF Removed- 1075 10/24/24 1200 400 mL/min 500 ml/hr -140 mmHg 170 mmHg 120 600 Yes Patient resting, UF Removed- 1195 10/24/24 1215 400 mL/min 500 ml/hr -130 mmHg 160 mmHg 110 600 Yes primary Rn bedside, uf removal 1369 10/24/24 1230 400 mL/min 610 ml/hr -140 mmHg 160 mmHg 110 600 Yes Patient resting, UF Removed- 1454 10/24/24 1237 -- 0 ml/hr -- -- -- -- Yes Treatment completed as ordered, UF Removed- 1500 Vital Signs Patient Vitals for the past 24 hrs: BP Temp Temp src Pulse Resp SpO2 10/24/24 1247 (!) 167/82 36.7 C (98.1 F) -- 113 16 99 % 10/24/24 1237 (!) 170/94 -- -- 114 19 -- 10/24/24 1230 (!) 171/100 -- -- 113 23 -- 10/24/24 1215 (!) 175/93 -- -- 111 18 -- 10/24/24 1200 (!) 174/88 -- -- 110 16 -- 10/24/24 1145 (!) 173/87 -- -- 110 18 -- 10/24/24 1130 (!) 175/86 -- -- 108 22 -- 10/24/24 1115 (!) 161/84 -- -- 106 22 -- 10/24/24 1100 (!) 171/83 36.8 C (98.2 F) -- 108 18 100 % 10/24/24 1045 (!) 176/92 -- -- 106 22 -- 10/24/24 1030 (!) 171/100 -- -- 106 17 -- 10/24/24 1015 (!) 165/87 -- -- 102 17 -- 10/24/24 1000 149/80 -- -- 108 17 -- 10/24/24 0945 140/83 -- -- 108 22 -- 10/24/24 0937 143/80 37.1 C (98.7 F) -- 107 23 100 % 10/24/24 0932 150/76 -- -- 110 20 100 % 10/24/24 0919 147/74 37.3 C (99.2 F) -- 112 20 100 % 10/24/24 0802 128/74 -- -- 110 15 98 % 10/24/24 0702 148/65 -- -- 109 (!) 26 97 % 10/24/24 0602 152/83 -- -- 114 17 97 % 10/24/24 0502 150/73 -- -- 115 18 96 % 10/24/24 0402 (!) 165/75 -- -- 113 (!) 26 -- 10/24/24 0345 -- -- -- -- -- 99 % 10/24/24 0302 139/77 37.1 C (98.8 F) Axillary 110 (!) 27 97 % 10/24/24 0202 (!) 166/78 -- -- 114 19 -- 10/24/24 0102 150/69 -- -- 108 24 -- 10/24/24 0003 147/70 -- -- 109 17 98 % 10/23/24 2302 138/69 36.9 C (98.4 F) Axillary 107 18 98 % 10/23/24 2222 -- -- -- 110 (!) 26 97 % 10/23/242220 -- -- -- 110 (!) 27 97 % 10/23/242219 -- -- -- 109 (!) 27 98 % 10/23/242218 -- -- -- 111 15 98 % 10/23/242217 -- -- -- 113 19 98 % 10/23/242216 -- -- -- 111 17 98 % 10/23/242215 -- -- -- 113 20 96 % 10/23/242214 -- -- -- 110 18 99 % 10/23/242213 -- -- -- 113 16 100 % 10/23/242212 -- -- -- 113 14 97 % 10/23/242211 -- -- -- 113 18 100 % 10/23/242210 -- -- -- 110 (!) 26 98 % 10/23/242209 -- -- -- 111 13 99 % 10/23/242208 -- -- -- 112 14 100 % 10/23/242207 -- -- -- 111 25 99 % 10/23/242206 -- -- -- 111 22 96 % 10/23/242205 -- -- -- 111 19 98 % 10/23/242204 -- -- -- 110 19 99 % 10/23/242203 -- -- -- 111 18 98 % 10/23/242202 -- -- -- 111 23 97 % 10/23/242201 136/72 -- -- 112 21 98 % 10/23/242200 -- -- -- 112 21 98 % 10/23/242199 -- -- -- 112 13 99 % 10/23/242158 -- 37.5 C (99.5 F) Oral 111 14 100 % 10/23/242157 -- -- -- 112 16 99 % 10/23/242156 -- -- -- 112 13 99 % 10/23/242155 -- -- -- 114 (!) 29 98 % 10/23/242154 -- -- -- 113 (!) 32 97 % 10/23/242153 -- -- -- 114 (!) 29 97 % 10/23/242152 -- -- -- 115 (!) 28 98 % 10/23/242151 -- -- -- 113 (!) 26 97 % 10/23/242150 -- -- -- 113 24 97 % 10/23/242149 -- -- -- 113 (!) 26 96 % 10/23/242148 -- -- -- 113 (!) 27 98 % 10/23/242147 -- -- -- 112 (!) 27 98 % 10/23/242146 -- -- -- 112 (!) 27 97 % 10/23/242145 -- -- -- 111 (!) 26 97 % 10/23/242144 -- -- -- 112 (!) 26 99 % 10/23/242143 -- -- -- 110 (!) 26 99 % 10/23/242142 -- -- -- 110 25 98 % 10/23/242141 -- -- -- 111 (!) 26 98 % 10/23/242139 -- -- -- 110 (!) 29 98 % 10/23/242138 -- -- -- 114 25 98 % 10/23/242137 -- -- -- 112 25 98 % 10/23/242136 -- -- -- 110 22 99 % 10/23/242135 -- -- -- 113 (!) 27 96 % 10/23/242134 -- -- -- 114 25 96 % 10/23/242133 -- -- -- 112 (!) 32 98 % 10/23/242132 -- -- -- 113 (!) 30 98 % 10/23/242131 -- -- -- 112 (!) 26 97 % 10/23/242130 -- -- -- 112 (!) 26 98 % 10/23/242129 -- -- -- 112 (!) 29 98 % 10/23/242128 -- -- -- 113 (!) 27 98 % 10/23/242127 -- -- -- 112 (!) 26 98 % 10/23/242126 -- -- -- 112 (!) 27 98 % 10/23/242125 -- -- -- 111 (!) 27 99 % 10/23/242124 -- -- -- 112 (!) 29 98 % 10/23/242123 -- -- -- 111 (!) 27 98 % 10/23/242122 -- -- -- 111 25 98 % 10/23/242121 -- -- -- 110 (!) 26 98 % 10/23/242120 -- -- -- 110 (!) 30 98 % 10/23/242119 -- -- -- 109 (!) 28 97 % 10/23/242118 -- -- -- 110 19 98 % 10/23/242117 -- -- -- 111 22 98 % 10/23/242116 -- -- -- 112 22 98 % 10/23/242115 -- -- -- 113 20 99 % 10/23/242114 -- -- -- 114 18 100 % 10/23/242113 -- -- -- 112 15 100 % 10/23/242112 -- -- -- 111 25 98 % 10/23/242111 -- -- -- 111 22 96 % 10/23/242110 -- -- -- 110 (!) 29 97 % 10/23/242109 -- -- -- 112 23 98 % 10/23/242108 -- -- -- 111 16 99 % 10/23/242107 -- -- -- 111 (!) 26 98 % 10/23/242106 -- -- -- 112 20 97 % 10/23/242105 -- -- -- 111 22 97 % 10/23/242104 -- -- -- 111 (!) 29 97 % 10/23/242103 -- -- -- 111 (!) 28 97 % 10/23/242102 -- -- -- 112 23 97 % 10/23/242101 138/73 -- -- 111 22 97 % 10/23/242100 -- -- -- 112 21 97 % 10/23/242099 -- -- -- 111 18 97 % 10/23/242058 -- -- -- 111 20 98 % 10/23/242057 -- -- -- 113 19 100 % 10/23/242056 -- -- -- 110 (!) 26 98 % 10/23/242055 -- -- -- 111 (!) 27 98 % 10/23/242054 -- -- -- 111 23 97 % 10/23/242053 -- -- -- 110 (!) 26 97 % 10/23/242052 -- -- -- 112 (!) 28 96 % 10/23/242051 -- -- -- 112 (!) 27 97 % 10/23/242050 -- -- -- 111 (!) 28 95 % 10/23/242049 -- -- -- 110 25 98 % 10/23/242048 -- -- -- 111 17 96 % 10/23/242047 -- -- -- 111 19 98 % 10/23/242046 -- -- -- 112 15 98 % 10/23/242045 -- -- -- 114 20 99 % 10/23/242044 -- -- -- 113 23 97 % 10/23/242043 -- -- -- 110 (!) 26 98 % 10/23/242042 -- -- -- 110 19 98 % 10/23/242041 -- -- -- 110 (!) 30 98 % 10/23/242040 -- -- -- 110 (!) 35 98 % 10/23/242039 -- -- -- 110 24 97 % 10/23/242038 -- -- -- 111 15 99 % 10/23/242037 -- -- -- 112 (!) 26 96 % 10/23/242036 -- -- -- 111 (!) 30 97 % 10/23/242035 -- -- -- 111 (!) 26 97 % 10/23/242034 -- -- -- 113 (!) 27 97 % 10/23/242033 -- -- -- 113 20 97 % 10/23/242031 -- -- -- 115 21 98 % 10/23/242030 -- -- -- 115 (!) 27 98 % 10/23/242029 -- -- -- 115 21 98 % 10/23/242028 -- -- -- 113 18 98 % 10/23/242027 -- -- -- 116 20 97 % 10/23/242026 -- -- -- 114 23 97 % 10/23/242025 -- -- -- 113 19 98 % 10/23/242024 -- -- -- 115 18 100 % 10/23/242023 -- -- -- 114 24 97 % 10/23/242022 -- -- -- 112 24 98 % 10/23/242021 -- -- -- 114 21 98 % 10/23/242020 -- -- -- 112 18 98 % 10/23/242019 -- -- -- 113 22 98 % 10/23/242018 -- -- -- 113 16 99 % 10/23/242017 -- -- -- 115 16 98 % 10/23/242016 -- -- -- 111 21 97 % 10/23/242015 -- -- -- 112 18 100 % 10/23/242014 -- -- -- 112 23 99 % 10/23/242013 -- -- -- 111 20 100 % 10/23/242012 -- -- -- 112 19 97 % 10/23/242011 -- -- -- 112 17 98 % 10/23/242010 -- -- -- 112 18 99 % 10/23/242009 -- -- -- 112 (!) 27 97 % 10/23/242008 -- -- -- 112 20 98 % 10/23/242007 -- -- -- 112 (!) 29 98 % 10/23/242006 -- -- -- 112 (!) 33 97 % 10/23/242005 -- -- -- 113 22 97 % 10/23/242004 -- -- -- 113 (!) 26 96 % 10/23/242003 -- -- -- 112 (!) 26 97 % 10/23/242002 -- -- -- 111 (!) 31 97 % 10/23/24 2002 127/70 -- -- 113 25 99 % 10/23/242000 -- -- -- 113 23 98 % 10/23/241999 -- -- -- 113 15 98 % 10/23/241958 -- -- -- 111 19 98 % 10/23/241957 -- -- -- 113 (!) 35 98 % 10/23/241956 -- -- -- 112 (!) 28 96 % 10/23/241955 -- -- -- 114 24 97 % 10/23/241954 -- -- -- 112 21 98 % 10/23/241953 -- -- -- 111 (!) 30 97 % 10/23/241952 -- -- -- 115 21 97 % 10/23/241951 -- -- -- 115 20 99 % 10/23/241950 -- -- -- 114 23 97 % 10/23/241949 -- -- -- 115 (!) 28 98 % 10/23/241948 -- -- -- 116 (!) 27 97 % 10/23/241947 -- -- -- 117 15 99 % 10/23/241946 -- -- -- 115 (!) 27 94 % 10/23/241945 -- -- -- 114 17 99 % 10/23/241944 -- -- -- 115 20 99 % 10/23/241943 -- -- -- 115 (!) 34 98 % 10/23/241942 -- -- -- 118 16 96 % 10/23/241941 -- -- -- 117 (!) 30 97 % 10/23/241940 -- -- -- 117 (!) 31 97 % 10/23/241939 -- -- -- 117 (!) 34 98 % 10/23/241938 -- -- -- 116 (!) 27 99 % 10/23/241937 -- -- -- 118 (!) 28 96 % 10/23/241936 -- -- -- 118 (!) 26 96 % 10/23/241935 -- -- -- 117 25 96 % 10/23/241934 -- -- -- 117 (!) 26 96 % 10/23/241933 -- -- -- 117 (!) 26 96 % 10/23/241932 -- -- -- 117 (!) 27 96 % 10/23/241931 -- -- -- 116 (!) 29 96 % 10/23/241930 -- -- -- 116 (!) 30 96 % 10/23/241929 -- -- -- 116 (!) 28 96 % 10/23/241928 -- -- -- 115 (!) 28 96 % 10/23/241927 -- -- -- 115 (!) 32 96 % 10/23/241926 -- -- -- 115 (!) 29 96 % 10/23/241925 -- -- -- 115 (!) 29 96 % 10/23/241923 -- -- -- 114 (!) 26 96 % 10/23/241922 -- -- -- 115 (!) 28 96 % 10/23/241921 -- -- -- 114 (!) 31 96 % 10/23/241920 -- -- -- 114 14 98 % 10/23/241919 -- -- -- 115 24 96 % 10/23/241918 -- -- -- 117 (!) 28 96 % 10/23/241917 -- -- -- 117 (!) 26 96 % 10/23/241916 -- -- -- 117 (!) 29 97 % 10/23/241915 -- -- -- 117 (!) 27 96 % 10/23/241914 -- -- -- 117 (!) 26 97 % 10/23/241913 -- -- -- 116 (!) 27 98 % 10/23/241912 -- -- -- 117 (!) 29 97 % 10/23/241911 -- -- -- 117 (!) 28 98 % 10/23/241910 -- -- -- 115 (!) 28 97 % 10/23/241909 -- -- -- 117 24 98 % 10/23/241908 -- -- -- 115 23 94 % 07/21/25 1908 -- -- -- 119 (!) 28 94 % 10/23/24 1907 -- -- -- 117 (!) 26 98 % 10/23/24 1906 -- -- -- 115 23 95 % 10/23/24 1905 -- -- -- 117 25 96 % 10/23/24 1904 -- -- -- 116 25 97 % 10/23/24 1903 -- -- -- 116 (!) 26 94 % 10/23/24 1902 159/67 -- -- 116 (!) 26 95 % 10/23/24 1800 148/77 -- -- (!) 123 25 100 % 10/23/24 1700 (!) 178/89 -- -- 120 (!) 28 98 % 10/23/24 1600 -- -- -- 118 (!) 29 99 % 10/23/24 1515 -- (!) 38.1 C (100.6 F) Axillary 115 20 100 % 10/23/24 1503 (!) 169/81 -- -- 111 23 100 % 10/23/24 1500 -- -- -- 112 23 99 % 10/23/24 1403 157/80 -- -- 110 21 100 % 10/23/24 1303 150/77 -- -- 105 25 100 % Post-Dialysis Arterial Catheter Locking Solution: Heparin (1000units:1ml) Volume (ml): 2.0 Venous Catheter Locking Solution: Heparin (1000units:1ml) Volume (ml): 2.1 Post-Treatment Procedures: Catheter capped, clamped and heparinized x 2 ports Machine Disinfection Process: Exterior Machine Disinfection Rinseback Volume (mL): 300 mL Total Liters Processed (L/min): 66.2 L/min Dialyzer Clearance: Clear Hemodialysis Intake (ml): 500 ml Hemodialysis Output (ml): 1500 ml NET Removed (ml): 1000 ml Tolerated Treatment: Good Interventions Taken: Other (Comment) (None Needed) Patient Response to Treatment: Patient denies discomfort due to treatment Physician Notified: No Patient Disposition: Remain in ICU/ED Charge: $ IP Hemodialysis Charge: Hemodialysis Provider Notification Provider Notification Reason for Communication: Evaluate (Pt temp 100.5f Hr at times tachy 115 - 130, not sustained currently 117 on monitor. AM Hgb was 6.9 WBC 35.0 , and glucose was 72 with am labs did you want her on glucose checks? She remains at times A/o to self/discoriented Poor and limited IV access.) Provider Name: Dr. Zambrano Provider Role: Attending physician Method of Communication: Secure chat Response: See orders (Transfer to ICU) Notification Date: 10/23/24 Notification Time: 807 Provider Role: Attending physician Method of Communication: Secure chat Response: See orders (Transfer to ICU) Notification Time: 807 Handoff complete and report given to Primary RN at 1259. Primary RN (First Initial, Last Name, Title): Ottoniel Cunha RN Education Person Educated: Patient Knowledge Base: Minimal Barriers to Learning?: Yes, including Orientation Preferred method of Learning: Oral Topic(s): Emergency, Access Care, Signs and Symptoms of Infection, and Fluid Management Teaching Tools: Explanation Response to Education: Requires Follow-up [1] No Known Allergies [2] Patient Active Problem List Diagnosis Hypertensive emergency Gastrointestinal hemorrhage, unspecified gastrointestinal hemorrhage type Anemia Pulmonary edema, acute (HCC) Shortness of breath COVID-19 Edema of left lower extremity Sepsis, due to unspecified organism, unspecified whether acute organ dysfunction present (HCC) [3] L AV fistula site cleansed w/ sterile water and swabbed for cx Interventional Radiology: Reagan Guerin tolerated placement of her TLC left Internal Jugular (left neck) very well. She is confused but she is not in distress. Dressing is dry and intact. A new dressing was placed over the Left Tunneled HD Catheter. No bleeding. No hematoma. Ok to use order placed. Transfer back to the ICU. Patient arrived from [facility] for temporary central line placement. Dr. ruvalcaba in to speak with the patient/family regarding procedure, and consent was obtained. Patient's lab values and allergies were reviewed. Patient was placed supine on exam table, prepped and draped in sterile fashion. Telemetry monitors were placed. IR Procedures: Apoorva is here at [facility] from the ICU for a TLC (Temp Central Line) . She has verbalized understanding of the procedural instructions, however she is somewhat confused, and we got phone consent from her brother. History, allergies, medications and lab results reviewed. Prepped and draped in sterile fashion. Time out performed. She is on a monitor. Patient ready for the procedure. IR is ready. Patient transported to ICU by Nursing Piping Blocker and Kacey RN Report called to [place] JOINTER OPERATOR. Wound Care consulted for Pressure Injury Prevention. Pt's Arnol score= 13 on 10/23 Pt's pressure points assessed. Pt turned with max assist of 2 (this RN and Wound MILLINERY DEPARTMENT MANAGER) for posterior assessment. Pt's Heels, Back, Elbows, Occiput and ears all intact. Unstageable pressure injury noted to sacrum extending to left buttock. Wound MILLINERY DEPARTMENT MANAGER present at bedside for concurrent skin assessment. For sacrum/left buttock wound assessment and treatment plan, please see Wound/Ostomy MILLINERY DEPARTMENT MANAGER progress notes. Prevention Measures in place, including: Pillows/wedges, Foam heel protectors (changed), Heels elevated off bed on pillows, Sacral foam (changed), Zinc/Moisture Barrier ointment (obtained), Waffle chair cushion (obtained for pt). Skin Care precaution order set in place. Dietitian consult in place. PT consult in place. D/W nursing staff. Will continue to follow pt. Please secure chat for any questions or concerns. Kirti High RN documented in this encounter [facility] 11-11-2024 Note [facility] 11-11-2024 Hospital course Narrative Hospitalist Discharge Summary Apoorva Gonzalez : 1950 Admit date: 10/22/2024 Discharge date: 11/11/2024 Admitting Physician: Loni Zambrano MD Primary Care Physician: Roxie Spain Visit Status: Inpatient Code Status: DNR-CCA BRIEF HOSPITAL COURSE: 74-year-old female presenting with fever and tachycardia.history of hypertension, hyperlipidemia, ESRD on hemodialysis and previous history of seizures she has had frequent hospitalizations in the last several months. From , to August 24 she had an infected hematoma in the right thigh and anterior hip. She had a wound VAC after it was drained. She returned to the hospital on August 26, 2024 for the expanding hematoma requiring 2 units of PRBCs. From September 13 to October 12, 2024, she was treated for new onset atrial fibrillation complicated by COVID-19 infection. At that time, she was also positive for Enterobacter cloacae bacteremia, Klebsiella pneumoniae, Klebsiella oxytoca. She was sent to the ICU transiently due to high fevers, tachycardia, and tachypnea which might have been a drug reaction to meropenem she was on. She was also treated for C. difficile colitis. She had a tunneled HD catheter placed on discharge. She is discharged to nursing facility. There is concern that she had a fistula infection and could be potentially the source. She had an excision of the left upper extremity infected graft on November 02, 2024. Infectious disease recommended Bactrim renally dosed through November 13. Nephrology has been following for dialysis. From November 04 to November 05, she was having bleeding from her AV fistula requiring blood transfusions and on November 05 she had an ex lap of the left upper extremity with evacuation of hematoma. She was having increasing pain. Vascular surgery evaluated and looked at her wound and took off a couple sutures from her 3 incisions, and they evacuated a 50 cc old clot, and irrigated this extensively without any further bleeding. There is some trace oozing around the skin edges. She had some improvement with the local swelling. They attempted to do a duplex ultrasound on her to see if there was a DVT but could not see anything 1 way or another. Her hemoglobin has been stable now for the last 2 days. Her pain has been well-controlled. Vascular surgery signed off and was not planning on any intervention. Acute, acute on chronic, unstable/uncontrolled chronic problems/discharge diagnoses: Sepsis due to blood pressure ulcer and AV graft Acute blood loss Anemia Stable chronic problems affecting care, new non-acute discharge diagnoses: ESRD on hemodialysis-nephrology following Hx of recent covid infection Hx of infected hematoma status post I&D Seizure History-cont keppra Hx of recent c dif infection Hx of recent Enterobacter cloacae/ Kleb pneumo/ Kleb oxytoca/ VR-Enterococcus casseliflavus Septic shock-resolved Hypertension-continue amlodipine Medical History[1] Procedures: Evacuation of old clot in fistula Hospital Course: See discharge diagnoses list above and medication adjustments below in med rec.The patient is discharged in improved and stable condition. Consults: IP CONSULT TO CASE MANAGEMENT INPATIENT CONSULT TO WOUND CARE PROVIDERS PHARMACY TO DOSE VANCO IP CONSULT TO INFECTIOUS DISEASES IP CONSULT TO WOUND PREVENTION IP CONSULT TO PALLIATIVE CARE IP CONSULT TO NEPHROLOGY IP CONSULT TO DIETITIAN IP CONSULT TO VASCULAR SURGERY Discharge Instructions: Diet: Dietary Orders (From admission, onward) Start Ordered 11/10/24 1602 Adult diet Regular Diet effective now Question: Diet type Answer: Regular 11/10/24 1601 10/26/24 1438 Supplement:Dinner; Nepro w/CARB Steady Until discontinued Question Answer Comment Frequency Dinner Select supplement: Nepro w/CARB Steady 10/26/24 1438 10/26/24 1438 Supplement:Breakfast, Lunch; Vanilla Magic Cup Until discontinued Question Answer Comment Frequency Breakfast Frequency Lunch Select supplement: Vanilla Magic Cup 10/26/24 1438 Activity: as tolerated Recommended Outpatient Tests: Disposition: Patient discharged in stable condition to nursing facility. Greater than 31 minutes spent discharging the patient and coming up with patient discharge plan. Vitals: BP 154/80 Pulse 87 Temp 36.4 C (97.6 F) Resp 16 Ht 5' 4 (1.626 m) Wt 117 lb 4.6 oz (53.2 kg) SpO2 100% BMI 20.13 kg/m Pulse Ox: SpO2 Av.3 % Min: 97 % Max: 100 % Supplemental O2: O2 Flow Rate (L/min): 6 L/min Physical Exam Constitutional: Comments: Appeared well, was alert, and conversational today. In no acute distress. Calm. Cardiovascular: Rate and Rhythm: Normal rate. Pulses: Normal pulses. Pulmonary: Effort: Pulmonary effort is normal. No respiratory distress. Abdominal: General: There is no distension. Palpations: Abdomen is soft. Tenderness: There is no abdominal tenderness. Musculoskeletal: Comments: Arm was wrapped in Rosey bandage LABS: Recent Labs 11/09/2422511/10/2421711/11/24 0539 NA 134* 134* 138 K 4.5 4.0 4.5 CL 102 103 105 CO2 24 26 24 BUN 24* 16 26* CREATININE 4.02* 2.81* 4.23* GLUCOSE 68* 67* 67* CALCIUM 7.4* 7.6* 7.3* Recent Labs 11/09/2422511/09/2474911/10/2421711/11/24 0539 WBC 16.0* -- 13.2* 12.6* RBC 2.40* -- 2.43* 2.39* HGB 6.8* 8.6* 7.0* 7.0* HCT 21.4* 25.9* 21.6* 21.8* MCV 89.2 -- 88.9 91.2 MCH 28.3 -- 28.8 29.3 MCHC 31.8 -- 32.4 32.1 RDW 16.7* -- 16.9* 17.1* PLT 414 -- 382 480* MPV 10.1 -- 10.4 10.4 Discharge Medications: Medication List START taking these medications amLODIPine 5 MG tablet Commonly known as: Norvasc Take 1 tablet (5 mg) by mouth daily. melatonin 5 MG tablet Take 1 tablet (5 mg) by mouth Nightly. polyethylene glycol (PEG) 3350 17 g packet Commonly known as: Miralax Take 17 g by mouth Daily as needed (constipation) for up to 3 days. sulfamethoxazole-trimethoprim 800-160 MG tablet Commonly known as: Bactrim DS Take 1 tablet by mouth daily for 4 days. CHANGE how you take these medications oxyCODONE 5 MG immediate release tablet Commonly known as: Roxicodone Take 1 tablet (5 mg) by mouth every 6 hours as needed for severe pain (7-10) or moderate pain (4-6) for up to 5 days. What changed: reasons to take this CONTINUE taking these medications acetaminophen 325 MG tablet Commonly known as: Tylenol atorvastatin 40 MG tablet Commonly known as: Lipitor Take 1 tablet (40 mg) by mouth Nightly. B complex-vitamin C-folic acid 0.8 MG tablet calcium acetate 667 MG tablet Commonly known as: Phoslo cholecalciferol 125 MCG (5000 UT) capsule Commonly known as: Vitamin D-3 levETIRAcetam 500 MG tablet Commonly known as: Keppra Take 1 tablet (500 mg) by mouth daily. magnesium hydroxide 2400 MG/10ML suspension suspension Commonly known as: Milk of Magnesia sevelamer 800 MG tablet Commonly known as: Renagel vitamin B-1 250 MG tablet STOP taking these medications cefdinir 300 MG capsule Commonly known as: Omnicef cyclobenzaprine 5 MG tablet Commonly known as: Flexeril linezolid 600 MG tablet Commonly known as: Zyvox meclizine 25 MG tablet Commonly known as: Antivert Where to Get Your Medications Information about where to get these medications is not yet available Ask your nurse or doctor about these medications amLODIPine 5 MG tablet melatonin 5 MG tablet oxyCODONE 5 MG immediate release tablet polyethylene glycol (PEG) 3350 17 g packet sulfamethoxazole-trimethoprim 800-160 MG tablet Recommended Follow-up: No follow-up provider specified. Complexity of Follow up: [] Moderate Complexity: follow up within 7-14 calendar days (36847) [x] Severe Complexity: follow up within 7 calendar days (49275) Follow up Testing, Pending results or Referrals at Transitional Care Visit: [x] yes [] no Instructions to MA: Please call patient on day after discharge (must document patient contacted within 2 business days of discharge). Follow up questions for MA: 1. Did you get medications filled and taking them as instructed from discharge? 2. Are you following your discharge instructions from your hospital stay? 3. Please confirm patient is scheduled for a follow up appointment within the above time frame. Signed: Gerard Carrillo DO Division of Hospitalist Medicine [facility] 11/11/2024, 3:40 PM [1] Past Medical History: Diagnosis Date Chronic kidney disease (CKD) Hemodialysis patient (CMS/HCC) (HCC) Wednesday, , Wednesday History of blood transfusion 02/27/2022 Hypertension Seizure (HCC) Developed seizure-like activity on 02/24 during hospital admission documented in this encounter [facility] 11-11-2024 History of Present illness Narrative Nephrology Progress Note Following for ESRD Pt seen in room NAD Dialyzed earlier, plans for discharge today Current Inpatient Medications: Reviewed on JUN. Vitals: BP 123/75 Pulse 87 Temp 36.5 C (97.7 F) Resp 16 Ht 1.626 m (5' 4) Wt 53.2 kg (117 lb 4.6 oz) SpO2 97% BMI 20.13 kg/m BLOOD PRESSURE RANGE: Systolic (24hrs), Av , Min:102 , Max:153 ; Diastolic (24hrs), Av, Min:61, Max:81 24HR INTAKE/OUTPUT: No intake or output data in the 24 hours ending 11/11/24 1412 Physical exam: Constitutional: NAD Skin: no rash, turgor wnl Heent: eomi, mmm Neck: no bruits or jvd noted Cardiovascular: Normal S1, S2 without m/r/g Respiratory: CTAB without w/r/r Abdomen: +bs, soft, nt, nd Ext: no lower extremity edema Data: Labs: Recent Labs 11/09/2422511/09/24 0750 11/10/2421711/11/24 0539 WBC 16.0* -- 13.2* 12.6* HGB 6.8* 8.6* 7.0* 7.0* HCT 21.4* 25.9* 21.6* 21.8* MCV 89.2 -- 88.9 91.2 PLT 414 -- 382 480* Recent Labs 11/09/2422511/10/248 11/11/24 0539 NA 134* 134* 138 K 4.5 4.0 4.5 CL 102 103 105 CO2 24 26 24 GLUCOSE 68* 67* 67* CALCIUM 7.4* 7.6* 7.3* BUN 24* 16 26* CREATININE 4.02* 2.81* 4.23* Assessment and Plan: 74 yo female with pmhx of ESRD, HTN, seizure infected AV graft. ESRD on TTS HD - TDC CDI Volume. Traced edema to LE ++LUE - Bp stable - UF as tolerated with HD Acute on chronic Anemia in CKD. Av graft hematoma - HODAN as OP - follow H&H -Transfuse forhgb <7.5 - blood TF per primary team CKDMBD. Not on binders at this time - check phos in AM - phos gaol 3.5-5.5 Plan HD today Ok for discharge from [facility] continue HD TTS , Please message me through [employer] with any questions or concerns. Jose G Ramirez DO Vascular Surgery Progress Note Subjective: NAEO. Pt reports her pain and swelling is slightly improved from before, still w/ intermittent AMS. Denies, numbness, tingling to LUE. Still able to move fiingers. ROS: As above unless otherwise noted here OBJECTIVE: Vitals: 11/11/24 0744 BP: 129/74 Pulse: 83 Resp: 18 Temp: 36.6 C (97.8 F) SpO2: 100% Intake and output: -Reviewed PHYSICAL EXAMINATION: GENERAL: no acute distress HEAD: Normocephalic, Atraumatic PULMONARY: Normal Respiratory Effort, No Respiratory Distress CARDIO: Regular Rate ABDOMEN: Soft, non-distended EXTREMITIES: Skin Warm And Well Perfused MUSCULOSKELETAL: Motor/sensation intact NEURO: No Focal Neuro Defecits, Motor And Sensation Grossly Intact VASCULAR: LUE Radial pulse 2+, LUE wrapped w/ compresison wrap, taken down at bedside, persistent but improved sanguinous strikethrough, no brisk bloody return upon removal of dressing. old hematoma between incision sites w/o interval change. Good leather flesher strength and sensation. Rewrapped w/ compression dressing and left elevated Artery Left Right Carotid Palpable [] Doppler Signal [] Palpable [] Doppler Signal [] Radial Palpable [x] Doppler Signal [] Palpable [x] Doppler Signal [] Ulnar Palpable [] Doppler Signal [] Palpable [] Doppler Signal [] Femoral Palpable [] Doppler Signal [] Palpable [] Doppler Signal [] Popliteal Palpable [] Doppler Signal [] Palpable [] Doppler Signal [] Dorsalis Pedis Palpable [] Doppler Signal [] Palpable [] Doppler Signal [] Posterior Tibial Palpable [] Doppler Signal [] Palpable [] Doppler Signal [] Lab/imaging: -Reviewed ASSESSMENT: Apoorva Gonzalez is a 74 y.o. female s/p left upper extremity AV graft excision. PLAN: No plans for operative vascular intervention at this time Incisions partially closed with corie yesterday Daily dressing changes Hemodialysis T, TH, S Rest of care per primary team Vascular surgery will follow peripherally, please reach out directly with any concerns WDW Dr. Jimenez skilled nursing professional for Dr. Fernandez Cosigned by Dee Jimenez MD at 11/11/2024 1:23 PM EDT Associated attestation - Dee Jimenez MD - 11/11/2024 1:23 PM EDT I have evaluated the patient and agree with the resident assessment and plan except for additional comments made in this note. Hospitalist Progress Note 11/10/2024 Subjective: Admit Date: 10/22/2024 PCP: Roxie Spain Room#: W6-017/W6-299 A BRIEF HOSPITAL COURSE: 74-year-old female presenting with fever and tachycardia.history of hypertension, hyperlipidemia, ESRD on hemodialysis and previous history of seizures she has had frequent hospitalizations in the last several months. From , to August 24 she had an infected hematoma in the right thigh and anterior hip. She had a wound VAC after it was drained. She returned to the hospital on August 26, 2024 for the expanding hematoma requiring 2 units of PRBCs. From September 13 to October 12, 2024, she was treated for new onset atrial fibrillation complicated by COVID-19 infection. At that time, she was also positive for Enterobacter cloacae bacteremia, Klebsiella pneumoniae, Klebsiella oxytoca. She was sent to the ICU transiently due to high fevers, tachycardia, and tachypnea which might have been a drug reaction to meropenem she was on. She was also treated for C. difficile colitis. She had a tunneled HD catheter placed on discharge. She is discharged to nursing facility. There is concern that she had a fistula infection and could be potentially the source. She had an excision of the left upper extremity infected graft on November 02, 2024. Infectious disease recommended Bactrim renally dosed through November 13. Nephrology has been following for dialysis. From November 04 to November 05, she was having bleeding from her AV fistula requiring blood transfusions and on November 05 she had an ex lap of the left upper extremity with evacuation of hematoma. She was having increasing pain. Vascular surgery evaluated and looked at her wound and took off a couple sutures from her 3 incisions, and they evacuated a 50 cc old clot, and irrigated this extensively without any further bleeding. There is some trace oozing around the skin edges. She had some improvement with the local swelling. They attempted to do a duplex ultrasound on her to see if there was a DVT but could not see anything 1 way or another. They felt that possibly to give a dose of DDAVP, continue Rosey compression wrap and and elevating the extremity for symptom control. They advised every 4 hours neurovascular checks and they plan on seeing her again tomorrow. Interval History: Regarding her mentation, she was conversational, calm and not altered. She was not having pain. She indicated she slept well. We also spoke about a possible DVT at that area, but we that anticoagulation would be contraindicated. I spoke with vascular surgery, and they saw the patient today. Of note, NPO diet with enteral medications 24HR INTAKE/OUTPUT: Intake/Output Summary (Last 24 hours) at 11/10/2024 1522 Last data filed at 11/10/2024 0644 Gross per 24 hour Intake 360 ml Output -- Net 360 ml Past Medical History: Medical History[1] LABS: CBC: Recent Labs 11/08/24 0326 11/09/24 0226 11/09/24 0750 11/10/24 0218 WBC 13.0* 16.0* -- 13.2* RBC 2.60* 2.40* -- 2.43* HGB 7.5* 6.8* 8.6* 7.0* HCT 23.1* 21.4* 25.9* 21.6* MCV 88.8 89.2 -- 88.9 RDW 17.0* 16.7* -- 16.9* PLT 376 414 -- 382 BMP: Recent Labs 11/08/24 0326 11/09/24 0226 11/10/248 NA 135* 134* 134* K 4.0 4.5 4.0 CL 103 102 103 CO2 26 24 26 BUN 18 24* 16 CREATININE 2.91* 4.02* 2.81* GLUCOSE 67* 68* 67* CALCIUM 7.2* 7.4* 7.6* ANIONGAP 6 8 5 LIVER PROFILE:No results for input(s): AST, ALT, BILITOT, ALKPHOS, PROT in the last 72 hours. No lab exists for component: LABALBU PT/INR: No results for input(s): PROTIME, INR in the last 72 hours. CARDIAC ENZYMES: No results for input(s): TROPONINI in the last 72 hours. Procalcitonin: No results found for: PROCAL COVID-19 PCR: No results for input(s): COVID19 in the last 72 hours. Objective: Vitals: BP 127/78 Pulse 86 Temp 36.2 C (97.2 F) (Temporal) Resp 16 Ht 5' 4 (1.626 m) Wt 117 lb 4.6 oz (53.2 kg) SpO2 100% BMI 20.13 kg/m Pulse Ox: SpO2 Av % Min: 100 % Max: 100 % Supplemental O2: O2 Flow Rate (L/min): 6 L/min Physical Exam Constitutional: General: She is not in acute distress. Comments: Conversational. Sitting up. No distress Cardiovascular: Rate and Rhythm: Normal rate. Pulses: Normal pulses. Pulmonary: Effort: Pulmonary effort is normal. No respiratory distress. Breath sounds: No wheezing. Abdominal: Palpations: Abdomen is soft. Neurological: Mental Status: She is alert. Medications: Scheduled PRN Scheduled Meds[2] PRN Meds[3] Continuous Continuous Meds[4] Assessment Acute, acute on chronic, unstable/uncontrolled chronic problems/diagnoses: Sepsis Sepsis due to both pressure ulcer and AV graft Infectious disease had recommended Bactrim renally dosed through November 13, will continue this. She had an excision of the left upper extremity infected graft. She is having increasing pain from the infected graft site. Much improved from yesterday regarding her pain. Vascular surgery evaluated and looked at her wound and took off a couple sutures from her 3 incisions, and they evacuated a 50 cc old clot, and irrigated this extensively without any further bleeding. There is some trace oozing around the skin edges. She had some improvement with the local swelling. They attempted to do a duplex ultrasound on her to see if there was a DVT but could not see anything 1 way or another. Plan -Continue Bactrim until November 13 -added back on the dilaudid, scheduled tylenol -vascular surgery seeing Acute blood loss Anemia She required transfusions and she had ex lap of the left upper extremity with evacuation of her hematoma. Her hemoglobin is still dropping, will continue to monitor needs for transfusion. Plan -required a blood transfusion yesterday -held DVT prophylaxis -vascular surgery continuing to follow Stable chronic problems affecting care, new non-acute diagnoses: ESRD on hemodialysis-nephrology following Hx of recent covid infection Hx of infected hematoma status post I&D Seizure History-cont keppra Hx of recent c dif infection Hx of recent Enterobacter cloacae/ Kleb pneumo/ Kleb oxytoca/ VR-Enterococcus casseliflavus Septic shock-resolved Hypertension-continue amlodipine Plan As a result of the above findings & factors, the following mgmt was pursued: - as above - am labs, replace lytes prn - PT/OT/CM/SW - delirium precautions: increase activity - DVT prophylaxis: heparin and encourage ambulation Complexity: Acute illness or injury posing a threat to life or body function (HIGH). Risk: Prescription drug/IVF/colloid was initiated, discontinued, adjusted; or reviewed with decision to maintain current orders (MOD). Spoke directly with vascular surgery about her care High risk medication, IV dilaudid requiring monitoring of respiratory status. Advance Directive: DNR-CCA Anticipated Discharge - Date - tomorrow - Location - Skilled Facility - Pending the following - hemoglobin stable Total time spent (which include face to face and non face to face encounters) : 25 minutes Extended Emergency Contact Information Primary Emergency Contact: Deshawn Crystal Mobile Relation: Brother Technical Coordinator needed? No Secondary Emergency Contact: Edward Ruggiero Mobile Relation: Significant Other Preferred language: Cambodian Technical Coordinator needed? No Gerard Carrillo DO Division of Hospitalist Medicine [facility] [1] Past Medical History: Diagnosis Date Chronic kidney disease (CKD) Hemodialysis patient (CMS/HCC) (HCC) Wednesday, , Wednesday History of blood transfusion 02/27/2022 Hypertension Seizure (HCC) Developed seizure-like activity on 02/24 during hospital admission [2] acetaminophen, 1,000 mg, Oral, q8h amLODIPine, 5 mg, Oral, Daily chlorhexidine, , Topical, Daily collagenase, , Topical, Daily [Held by provider] heparin, 5,000 Units, SubCUTAneous, 2 times per day levETIRAcetam, 500 mg, Oral, Daily lidocaine-EPINEPHrine, 25 mL, Injection, Once melatonin, 5 mg, Oral, Nightly [Held by provider] sevelamer carbonate, 800 mg, Oral, TID WC sodium chloride 0.9%, 5-40 mL, IntraVENous, 2 times per day sodium chloride 0.9%, 5-40 mL, IntraCATHeter, q8h sulfamethoxazole-trimethoprim, 1 tablet, Oral, Daily [3] PRN medications: collagenase, heparin, heparin, HYDROmorphone, naloxone, ondansetron ODT OR ondansetron, oxyCODONE, polyethylene glycol (PEG) 3350, sodium chloride, sodium chloride, sodium chloride, sodium chloride, sodium chloride, sodium chloride, sodium chloride, sodium chloride, sodium chloride 0.9%, sodium chloride 0.9% [4] Nutrition Assessment Type and Reason for Visit: Reassess Nutrition Recommendations/Plan: Recommend continuing with/re-initiating fully liberalized Regular diet as medically feasible (has been NPO all day), will continue to monitor acute renal labs however need to continue to encourage PO intake at meals. Pt already ordered Vanilla Magic Cup BID and Nepro once daily, still question if pt fully consuming ONS, will continue to send as long as pt has active PO diet. Please continue to record % consumed of meals in I/O Flowsheet. RD to monitor weight (confirm/monitor for Nephrology comment on pt's current EDW), labs, fluid, overall nutritional status & follow up weekly. Malnutrition Assessment: Malnutrition Status: At risk for malnutrition (Comment) (continue with ONS and diet once appropriate; noted MD/AGENCY TRAINER had been documenting Severe Malnutrition (until 10/31)) Context: Acute Illness (still ? chronic with prior admissions) Findings of the 6 clinical characteristics of malnutrition: Energy Intake: Mild decrease in energy intake (Comment) (however remains likely <75% or less for one week, recorded PO intakes remain here 0-100%, in prior admits pt also had largely varied PO intakes) Weight Loss: Unable to assess (as previously noted last EDW may be ~104#; acute weights here ranging from 106# (admit) up to 121#, today 117#) Body Fat Loss: Unable to assess Muscle Mass Loss: Unable to assess Fluid Accumulation: No significant fluid accumulation (per flowsheet) Property Condition Assessor Strength: Not Performed Nutrition Assessment: Pt with previously noted PMH including ESRD on HD, Seizures, HTN, HLD, recent admission to OSH for sudden cardiac arrest 2/2 right thigh/hip abscess s/p I&D 08/16 presented initially to [facility] from [facility] on 10/22 due to AMS; in ED pt noted to be febrile 101.3 at [facility], tachycardic, tachypneic and with elevated WBC, received IV fluid bolus, antibiotics, admitted to [facility] for further work up; Critical care consulted the following day as pt remained febrile, tachycardic and tachypneic, WBC count also continuing to increase with worsening anemia; pt has had multiple admissions 08/14 to 08/24 at [facility] for cardiac arrest, 08/26 to 09/06 at for sepsis believed to be due to an infected right thigh wound and hematoma; [facility] from 09/13-10/12 w/ COVID-19 due to covid-19, electrolyte derangements, Enterobacter cloacae, Klebsiella pneumonia, Klebsiella oxytocin and VR Enterococcus which were treated for complete course, also, had C. difficile colitis which was treated, had tunneled HD catheter placed on discharge on 10/12; at [facility] PT/OT/LP, ID, Nephrology, and Wound Care consulted; pt was transferred out of ICU services to medical services on 10/24, noted to be receiving Meropenem and Vancomycin IV (stopped, transitioned to oral abx) for infected pressure ulcer on left buttocks; at [facility] Palliative Care was following, speaking with pt's brother, code status changed to DNR-CCA; pt noted to need fistula placement for HD, has temp HD cath in place, transferred to [facility] 10/31 for new fistula placement; here Vascular was consulted for same, recommended OR for assessment of AV fistula clot/infection 11/02; s/p further blood transfusion 11/02, 11/05 (hemoglobin today 9.3 mg/dL), 11/04-11/05 pt was having bleeding from AV fistula requiring transfusions, 11/07 pt had drop in hemoglobin and Vascular went to bedside to examine LUE incsiion, 11/09 looked at wound again and took off a couple sutures from her 3 incisions, evacuated 50cc old clot, irrigated without further bleeding, duplex US attempted but inadequate, continuing ROSEY compression and elevating extremity, considering DDAVP. CAREER RESOURCE SPECIALIST following (signed off previously, diet progressed to Regular from Soft and Bite Sized 10/30, recorded intakes this admission remain largely varied (0-100%), receiving Magic Cup and Nepro ONS, currently NPO. Per chart, pt reporting pain today is better, did not require PRN dilaudid overnight. Prior intakes remain varied 0-100%, pt currently NPO (for possible procedure?), hasn't received any meals yet today because of this. Nutrition Related Findings: pos I/O (5.6L); +BS, last BM 11/09; No edema indicated; medications include renvela; labs: Na (134), SCr (2.81), BG (67), Hemoglobin (7.0) Wound Type: Pressure Injury, Unstageable (sacrum extending to L buttock) Current Nutrition Therapies: NPO diet with enteral medications Current Oral Intake Average Meal Intake: 0%, 1-25%, 26-50%, 51-75%, 76-100% (remains varied during length of admission) Average Supplements Intake: Unable to assess Anthropometric Measures: Height: 162.6 cm (5' 4) Current Body Weight: 53.2 kg (117 lb 4.6 oz) (11/10) Weight Source: Bed Scale Admission Body Weight: 48.3 kg (106 lb 7.7 oz) Usual Body Weight: 48.9 kg (107 lb 12.8 oz) (Per EMR--> 110# 08/09/23; 105.4# 03/03/24; 112# 06/09/24; 107.8# 08/26/24; 114.4# 10/06/24 bed scale) % Weight Change (Calculated): -1.2 [place] Body Weight (lbs) (Calculated): 120 lbs [place] Body Weight (Kg) (Calculated): 55 kg % [place] Body Weight (Calculated): 97.7 % BMI (kg/m2) (Calculated): 20.1 Weight Adjustment For: No Adjustment BMI Categories: Underweight (BMI less than 22) age over 65 Nutrition Interventions: Nutrition Education/Counseling: Education not appropriate Coordination of Nutrition Care: Continue to monitor while inpatient Plan of Care discussed with: N/A Goals: Previous Goal Met: Progressing toward Goal(s) (PO intakes remain varied) Goals: PO intake 75% or greater, by next RD assessment Nutrition Monitoring and Evaluation: Behavioral-Environmental Outcomes: Knowledge or Skill Food/Nutrient Intake Outcomes: Food and Nutrient Intake, Supplement Intake Physical Signs/Symptoms Outcomes: Biochemical Data, Fluid Status or Edema, Meal Time Behavior, Nutrition Focused Physical Findings, Skin, Weight Discharge Planning: Too soon to determine Alexus Denney RD Contact: Secure chat or *[phone] [facility] - Infectious Diseases Attending Progress Note Subjective: No acute events, reports pain better controlled today. Denies CP/SOB or cough. Fatigued but feels better overall. Afebrile. pRBC transfusion yesterday. Objective: Vitals: Patient Vitals for the past 24 hrs: BP Temp Temp src Pulse Resp SpO2 Weight 11/10/24 0759 127/78 36.2 C (97.2 F) Temporal 86 16 100 % -- 11/10/24 0600 -- -- -- -- -- -- 53.2 kg (117 lb 4.6 oz) 08/07/25 1958 116/64 36.7 C (98.1 F) Temporal 98 16 100 % -- Physical Exam Vitals reviewed. Constitutional: General: She is not in acute distress. Appearance: Normal appearance. She is ill-appearing. She is not toxic-appearing. Pulmonary: Effort: Pulmonary effort is normal. Musculoskeletal: General: Signs of injury (LUE rosey wrapped(pressure bandage) able to make a fist) present. Neurological: General: No focal deficit present. Mental Status: She is alert and oriented to person, place, and time. Psychiatric: Mood and Affect: Mood normal. Labs: Lab Results Component Value Date/Time NA 134 (L) 11/10/2024217 K 4.0 11/10/2024217 CL 103 11/10/2024217 CO2 26 11/10/2024217 BUN 16 11/10/2024217 CREATININE 2.81 (H) 11/10/2024217 GLUCOSE 67 (L) 11/10/2024217 CALCIUM 7.6 (L) 11/10/2024217 PROT 5.6 (L) 10/24/2024 0649 BILITOT 0.5 10/24/2024 0649 ALKPHOS 150 10/24/2024 0649 AST 28 10/24/2024 0649 ALT <6 10/24/2024 0649 PROCAL 68.03 (H) 10/05/2024 1419 PROCAL 19.25 (H) 09/15/2024 0308 PROCAL 76.25 (H) 09/14/2024 0541 Lab Results Component Value Date/Time WBC 13.2 (H) 11/10/2024217 HGB 7.0 (L) 11/10/2024217 HGB 9.1 10/05/2024 1419 HCT 21.6 (L) 11/10/2024217 PLT 382 11/10/2024217 LYMPHOPCT 15.1 11/10/2024217 LYMPHOPCT 8 (L) 11/01/2024316 MONOPCT 8.1 11/10/2024217 MONOPCT 2 (L) 11/01/2024316 BASOPCT 1.0 11/10/2024217 BASOPCT 1 11/01/2024 0317 NEUTROABS 9.4 (H) 11/10/2024 0218 Micro: Reviewed 11/02 operative cultures negative Lines: Vas cath Radiography/Echo/Other: reviewed Antimicrobials, Start/End Dates: Bactrim DS to 11/13 planned Impression: 74 F admitted with fever, change MS(confusion)from ECF: Severe sepsis. resolvedWBC trending down infected left arm fistula with E cloacae as well. s/p excision of AVF 11/02, and complicated by postoperative bleeding, clots, requiring RTOR 11/05 for evacuation of hematoma. Suture removed and further clots removed yesterday per Surgery notes, and pressure bandage re-applied. Anemia from above, requiring periodic transfusions Encephalopathy- back to baseline, resolved Leukocytosis-normalizing ESRD, on HD. Recent h/o Enterobacter cloacae/ Kleb pneumo/ Kleb oxytoca/ VR-Enterococcus casseliflavus BSI. Possble due to #3, instead of infected hematoma previously assumed and treated for in September 2024. Recent h/o C diff colitis. Overall back to baseline. Improved. Plan: Complete antibiotic as outlined previously. Will reassess on 11/13. Nephrology Progress Note Following for ESRD Pt seen in room NAD Current Inpatient Medications: Reviewed on JUN. Vitals: BP 127/78 Pulse 86 Temp 36.2 C (97.2 F) (Temporal) Resp 16 Ht 1.626 m (5' 4) Wt 53.2 kg (117 lb 4.6 oz) SpO2 100% BMI 20.13 kg/m BLOOD PRESSURE RANGE: Systolic (24hrs), Av , Min:116 , Max:143 ; Diastolic (24hrs), Av, Min:64, Max:86 24HR INTAKE/OUTPUT: Intake/Output Summary (Last 24 hours) at 11/10/2024 1220 Last data filed at 11/10/2024 0644 Gross per 24 hour Intake 360 ml Output -- Net 360 ml Physical exam: Constitutional: NAD Skin: no rash, turgor wnl Heent: eomi, mmm Neck: no bruits or jvd noted Cardiovascular: Normal S1, S2 without m/r/g Respiratory: CTAB without w/r/r Abdomen: +bs, soft, nt, nd Ext: no lower extremity edema Data: Labs: Recent Labs 11/08/246 11/09/246 11/09/24 0750 11/10/24 0218 WBC 13.0* 16.0* -- 13.2* HGB 7.5* 6.8* 8.6* 7.0* HCT 23.1* 21.4* 25.9* 21.6* MCV 88.8 89.2 -- 88.9 PLT 376 414 -- 382 Recent Labs 11/08/24 0326 11/09/246 11/10/24 0218 NA 135* 134* 134* K 4.0 4.5 4.0 CL 103 102 103 CO2 26 24 26 GLUCOSE 67* 68* 67* CALCIUM 7.2* 7.4* 7.6* BUN 18 24* 16 CREATININE 2.91* 4.02* 2.81* Assessment and Plan: 74 yo female with pmhx of ESRD, HTN, seizure infected AV graft. ESRD on TTS HD - seen on hd today UF goal increased - TDC CDI Volume. Traced edema to LE ++LUE - Bp stable - UF as tolerated with HD Acute on chronic Anemia in CKD. Av graft hematoma - HODAN as OP - follow H&H -Transfuse forhgb <7.5 - blood TF per primary team CKDMBD. Not on binders at this time - check phos in AM - phos gaol 3.5-5.5 Plan Continue monitoring surgical site for bleeding, infection, or hematoma recurrence vasc following Daily CBC to trend hemoglobin and hematocrit. Maintain hemodynamic stability, monitor volume status closely. Coordinate with dialysis team to resume access use when cleared by surgery. continue HD TTS , Thank you for allowing me to care for pt. Feel free to reach out with any questions or concerns Karis Stone APRN AGENCY TRAINER A-[employer]PARTMENT MANAGER [facility] [place] [phone] Pt seen and examined independently by me. I reviewed with Karis Stone APRN-AGENCY TRAINER the saavedra portions of the medical history and the findings on physical examination. I discussed the patient s saavedra portions of the diagnosis and concur with the treatment plan as documented in her note. Please message me through [employer] with any questions or concerns. Sean Castaneda MD Vascular Surgery Progress Note Subjective: NAEO. Pt reports her pain slightly improved from before, still w/ intermittent AMS. Denies, numbness, tingling to LUE. Still able to move fiingers. Not requiring PRN Dilaudid overnight ROS: As above unless otherwise noted here OBJECTIVE: Vitals: 11/10/24 0759 BP: 127/78 Pulse: 86 Resp: 16 Temp: 36.2 C (97.2 F) SpO2: 100% Intake and output: -Reviewed PHYSICAL EXAMINATION: GENERAL: no acute distress HEAD: Normocephalic, Atraumatic EYES: no drainage NECK: Supple, No Jvd PULMONARY: Normal Respiratory Effort, No Respiratory Distress, No Stridor, Chest Non-Tender CARDIO: Regular Rate ABDOMEN: Soft, no tenderness Is Present : Not Examed EXTREMITIES: Skin Warm And Well Perfused, No Cyanosis, Atraumatic, see vascular MUSCULOSKELETAL: Motor/sensation intact NEURO: No Focal Neuro Defecits, Motor And Sensation Grossly Intact VASCULAR: LUE Radial pulse 2+, LUE wrapped w/ compresison wrap, taken down at bedside, persistent but improved sanguinous strikethrough, no brisk bloody return upon removal of dressing. old hematoma between incision sites w/o interval change. Good leather flesher strength and sensation. Rewrapped w/ compression dressing and left elevated Artery Left Right Carotid Palpable [] Doppler Signal [] Palpable [] Doppler Signal [] Radial Palpable [x] Doppler Signal [] Palpable [x] Doppler Signal [] Ulnar Palpable [] Doppler Signal [] Palpable [] Doppler Signal [] Femoral Palpable [] Doppler Signal [] Palpable [] Doppler Signal [] Popliteal Palpable [] Doppler Signal [] Palpable [] Doppler Signal [] Dorsalis Pedis Palpable [] Doppler Signal [] Palpable [] Doppler Signal [] Posterior Tibial Palpable [] Doppler Signal [] Palpable [] Doppler Signal [] Lab/imaging: -Reviewed ASSESSMENT: Apoorva Gonzalez is a 74 y.o. female s/p left upper extremity AV graft excision. PLAN: No plans for operative vascular intervention at this time Will continue to monitor left upper extremity Possible DVT to LUE, however anticoagulation contraindicated 2/2 ongoing bleeding concerns Interval H/H drop to 7.0 from 8.6, No transfusions ovn, will continue to monitor Holding Heparin given bleeding concern Pressure dressings as needed w/ Kerlix, ROSEY Wrap Q4h Neurovascular checks Consider DDAVP for possible uremic coagulopathy Hemodialysis T, TH, S Rest of care per primary team Vascular surgery will continue to follow WDW Dr. Fernandez Cosigned by Raffy Fernandez MD at 11/10/2024 4:23 PM EDT Associated attestation - Raffy Fernandez MD - 11/10/2024 4:23 PM EDT I saw and evaluated the patient. I agree with the findings and plan of care as documented in the resident s note unless otherwise noted below. Incisions overlying the vessels to be closed. Middle arm incision will remain open to allow for drainage. Compression wrap to LUE to aid in swelling. Motion and sensation remain intact. Left radial pulse remains palpable. The patient was seen with the residents bedside. Some sutures removed from each incision with evacuation of old clot. Arm remains swollen. Compartments soft. Left radial pulse palpable. Motion and sensation intact. I suspect the patient may have an axillary DVT given required repair of the vein and swelling. Treatment would be anticoagulation however at this time the patient is not a candidate for anticoagulation given ongoing bleeding concerns. There is no active bleeding present from the left upper arm. The patient may benefit from DDAVP. She has already been back to OR once for bleeding concerns and there was no major bleeding identified. The wounds were dressed and a compression ROSEY wrap was applied. Vascular surgery will change dressing. Please call with any concerns. Raffy Fernandez MD Vascular Surgery Vascular Surgery Progress Note HPI: Reconsulted this am for concern for increased pain, swelling and bloody discharge from incisions in setting of needing blood transfusion 11/08/24. Patient was seen an evaluated at the bedside. Receiving HD upon initial evaluation. Notes her pain is much worse than when last seen on 11/07 and is now requiring additional PRN Dilaudid. Otherwise denying new vascular complaints. No new numbness,tingling, weakness, lightheadedness, SOB, CP. She does note her swelling feels worse than before. Dressing was taken down at bedside, and output was more sanguinous than before. Upon further examination, there was diffuse edema of the LUE, slightly worse than before. Her Incision sites appeared to have a slow ooze of old clotted blood, and the decision was made to remove a suture from each incision site for clot evacuation. Approximately 50 ml of clot was able to be expressed from the inicision sites, which were then irrigated w/ sterile saline q/ moderate improvement in swelling. Duplex US was brought to bedside to evaluate for DVT, however her post operative anatomy limited ultrasonography. Per chart patient has been anemic requiring transfusion most recently 11/08. On examination, no obvious bleeding necessitating intervention. Only notable for some slow bloody oozing from skin edges. Patient arm was then wrapped w/ compression dressing and elevated on pillow. ROS: As above unless otherwise noted here OBJECTIVE: Vitals: 11/09/24 1248 BP: 143/86 Pulse: 113 Resp: 18 Temp: 37.2 C (98.9 F) SpO2: 97% Intake and output: -Reviewed PHYSICAL EXAMINATION: GENERAL: no acute distress HEAD: Normocephalic, Atraumatic EYES: no drainage NECK: Supple, No Jvd PULMONARY: Normal Respiratory Effort, No Respiratory Distress, No Stridor, Chest Non-Tender CARDIO: Regular Rate ABDOMEN: Soft, no tenderness Is Present : Not Examed EXTREMITIES: Skin Warm And Well Perfused, No Cyanosis, Atraumatic, see vascular MUSCULOSKELETAL: Motor/sensation intact NEURO: No Focal Neuro Defecits, Motor And Sensation Grossly Intact VASCULAR: Strong left radial pulse. LUE w/ moderate interval increase in diffuse edema. Increased Sanguinous output than before. X3 incision sites initially closed w/ vertical matress suture, and subsequently removed 2 from each for clot evacuation. Approximately 50 ml old clot expressed. After evacuation, only notable for minimal blood ooze from skin edge, no obvious additional active bleed. Equal leather flesher strength, 2+ palpable radial pulses and sensation to BUE. Pressure wrap placed, and LUE left elevated. Artery Left Right Carotid Palpable [] Doppler Signal [] Palpable [] Doppler Signal [] Radial Palpable [x] Doppler Signal [] Palpable [x] Doppler Signal [] Ulnar Palpable [] Doppler Signal [] Palpable [] Doppler Signal [] Femoral Palpable [] Doppler Signal [] Palpable [] Doppler Signal [] Popliteal Palpable [] Doppler Signal [] Palpable [] Doppler Signal [] Dorsalis Pedis Palpable [] Doppler Signal [] Palpable [] Doppler Signal [] Posterior Tibial Palpable [] Doppler Signal [] Palpable [] Doppler Signal [] Lab/imaging: -Reviewed ASSESSMENT: Apoorva Gonzalez is a 74 y.o. female s/p left upper extremity AV graft excision. PLAN: No plans for operative vascular intervention at this time Will continue to monitor left upper extremity Possible DVT to LUE, however anticoagulation contraindicated 2/2 ongoing bleeding concerns Pressure dressings as needed w/ Kerlix, ROSEY Wrap Continue to monitor Hgb Q4h Neurovascular checks Consider DDAVP for possible uremic coagulopathy Hemodialysis T, TH, S Rest of care per primary team Vascular surgery will continue to follow [facility] Dr. Fernandez Cosigned by Rafyf Fernandez MD at 11/09/2024 3:14 PM EDT Nephrology Progress Note Following for ESRD ABG hematoma Pt seen on HD today BP elevated increased swelling in LUE and bleeding vascular at bedside to assess Increase UF goal Current Inpatient Medications: Reviewed on JUN. Vitals: BP 157/96 Pulse 112 Temp 36.5 C (97.7 F) Resp 20 Ht 1.626 m (5' 4) Wt 52.8 kg (116 lb 4.8 oz) SpO2 100% BMI 19.96 kg/m BLOOD PRESSURE RANGE: Systolic (24hrs), Av , Min:122 , Max:182 ; Diastolic (24hrs), Av, Min:80, Max:114 24HR INTAKE/OUTPUT: Intake/Output Summary (Last 24 hours) at 11/09/2024 1141 Last data filed at 11/09/2024 1110 Gross per 24 hour Intake 828 ml Output 1663 ml Net -835 ml Physical exam: Constitutional: ill appearing Neck: no bruits or jvd noted Cardiovascular: Normal S1, S2 without m/r/g Respiratory: CTAB without w/r/r Abdomen: +bs, soft, nt, nd Ext: + lower extremity edema Data: Labs: Recent Labs 11/07/2410711/08/2432511/09/2422511/09/24 0750 WBC 14.1* 13.0* 16.0* -- HGB 7.6* 7.5* 6.8* 8.6* HCT 23.6* 23.1* 21.4* 25.9* MCV 88.7 88.8 89.2 -- PLT 377 376 414 -- Recent Labs 11/07/2410711/08/2432511/09/24225 NA 139 135* 134* K 4.8 4.0 4.5 CL 105 103 102 CO2 23 26 24 GLUCOSE 82 67* 68* CALCIUM 7.2* 7.2* 7.4* BUN 37* 18 24* CREATININE 4.35* 2.91* 4.02* Assessment and Plan: 74 yo female with pmhx of ESRD, HTN, seizure infected AV graft. ESRD on TTS HD - seen on hd today UF goal increased - TDC CDI Volume. Traced edema to LE ++LUE - Bp with elevation today - UF as tolerated with HD Acute on chronic Anemia in CKD. Av graft hematoma - HODAN as OP - follow H&H -Transfuse forhgb <7.5 - blood TF per primary team CKDMBD. Not on binders at this time - check phos in AM - phos gaol 3.5-5.5 Plan Continue monitoring surgical site for bleeding, infection, or hematoma recurrence vasc at bedside to assess increased bleeding Daily CBC to trend hemoglobin and hematocrit. Maintain hemodynamic stability, monitor volume status closely. Coordinate with dialysis team to resume access use when cleared by surgery. continue HD TTS , Thank you for allowing me to care for pt. Feel free to reach out with any questions or concerns Karis David-G MILLINERY DEPARTMENT MANAGER [facility] [place] [phone] Pt seen and examined independently by me. I reviewed with MAYANK Mensah the saavedra portions of the medical history and the findings on physical examination. I discussed the patient s saavedra portions of the diagnosis and concur with the treatment plan as documented in her note. Please message me through [employer]! with any questions or concerns. Sean Castaneda MD Hospitalist Progress Note 11/09/2024 Subjective: Admit Date: 10/22/2024 PCP: Roxie Spain Room#: [id number]/[id number] A BRIEF HOSPITAL COURSE: 74-year-old female presenting with fever and tachycardia.history of hypertension, hyperlipidemia, ESRD on hemodialysis and previous history of seizures she has had frequent hospitalizations in the last several months. From , to August 24 she had an infected hematoma in the right thigh and anterior hip. She had a wound VAC after it was drained. She returned to the hospital on August 26, 2024 for the expanding hematoma requiring 2 units of PRBCs. From September 13 to October 12, 2024, she was treated for new onset atrial fibrillation complicated by COVID-19 infection. At that time, she was also positive for Enterobacter cloacae bacteremia, Klebsiella pneumoniae, Klebsiella oxytoca. She was sent to the ICU transiently due to high fevers, tachycardia, and tachypnea which might have been a drug reaction to meropenem she was on. She was also treated for C. difficile colitis. She had a tunneled HD catheter placed on discharge. She is discharged to nursing facility. There is concern that she had a fistula infection and could be potentially the source. She had an excision of the left upper extremity infected graft on November 02, 2024. Infectious disease recommended Bactrim renally dosed through November 13. Nephrology has been following for dialysis. From November 04 to November 05, she was having bleeding from her AV fistula requiring blood transfusions and on November 05 she had an ex lap of the left upper extremity with evacuation of hematoma. Interval History: She was having increasing pain in the left upper extremity. She was not sleeping well. I spoke with vascular surgery, and they saw the patient today. Of note, they looked at her wound and took off a couple sutures from her 3 incisions, and they evacuated a 50 cc old clot, and irrigated this extensively without any further bleeding. There is some trace oozing around the skin edges. She had some improvement with the local swelling. They attempted to do a duplex ultrasound on her to see if there was a DVT but could not see anything 1 way or another. They felt that possibly to give a dose of DDAVP, continue Rosey compression wrap and and elevating the extremity for symptom control. They advised every 4 hours neurovascular checks and they plan on seeing her again tomorrow. Adult diet Regular 24HR INTAKE/OUTPUT: Intake/Output Summary (Last 24 hours) at 11/09/2024 0927 Last data filed at 11/09/2024 0631 Gross per 24 hour Intake 578 ml Output -- Net 578 ml Past Medical History: Medical History[1] LABS: CBC: Recent Labs 11/07/2410711/08/2432511/09/2422511/09/24 0750 WBC 14.1* 13.0* 16.0* -- RBC 2.66* 2.60* 2.40* -- HGB 7.6* 7.5* 6.8* 8.6* HCT 23.6* 23.1* 21.4* 25.9* MCV 88.7 88.8 89.2 -- RDW 17.5* 17.0* 16.7* -- PLT 377 376 414 -- BMP: Recent Labs 11/07/2410711/08/2432511/09/24 0226 NA 139 135* 134* K 4.8 4.0 4.5 CL 105 103 102 CO2 23 26 24 BUN 37* 18 24* CREATININE 4.35* 2.91* 4.02* GLUCOSE 82 67* 68* CALCIUM 7.2* 7.2* 7.4* ANIONGAP 11 6 8 LIVER PROFILE:No results for input(s): AST, ALT, BILITOT, ALKPHOS, PROT in the last 72 hours. No lab exists for component: LABALBU PT/INR: No results for input(s): PROTIME, INR in the last 72 hours. CARDIAC ENZYMES: No results for input(s): TROPONINI in the last 72 hours. Procalcitonin: No results found for: PROCAL COVID-19 PCR: No results for input(s): COVID19 in the last 72 hours. Objective: Vitals: BP (!) 178/114 Pulse 105 Temp 37.2 C (99 F) (Temporal) Resp 18 Ht 5' 4 (1.626 m) Wt 116 lb 4.8 oz (52.8 kg) SpO2 99% BMI 19.96 kg/m Pulse Ox: SpO2 Av.4 % Min: 97 % Max: 99 % Supplemental O2: O2 Flow Rate (L/min): 6 L/min Physical Exam Constitutional: General: She is not in acute distress. Comments: Conversational today, looks much improved from when I saw her about a month past. Was alert and indicated feeling well. Cardiovascular: Rate and Rhythm: Normal rate. Pulses: Normal pulses. Pulmonary: Effort: Pulmonary effort is normal. No respiratory distress. Breath sounds: No wheezing. Abdominal: Palpations: Abdomen is soft. Neurological: Mental Status: She is alert. Medications: Scheduled PRN Scheduled Meds[2] PRN Meds[3] Continuous Continuous Meds[4] Assessment Acute, acute on chronic, unstable/uncontrolled chronic problems/diagnoses: Sepsis Sepsis due to both pressure ulcer and AV graft Infectious disease had recommended Bactrim renally dosed through November 13, will continue this. She had an excision of the left upper extremity infected graft. She is having increasing pain from the infected graft site. Plan -Continue Bactrim until November 13 -added back on the dilaudid, scheduled tylenol -vascular surgery to see, DDVAP, duplex? Rosey compression wrap Acute blood loss Anemia She required transfusions and she had ex lap of the left upper extremity with evacuation of her hematoma. Plan -required a blood transfusion yesterday -held DVT prophylaxis -vascular surgery continuing to follow Stable chronic problems affecting care, new non-acute diagnoses: ESRD on hemodialysis-nephrology following Hx of recent covid infection Hx of infected hematoma status post I&D Seizure History-cont keppra Hx of recent c dif infection Hx of recent Enterobacter cloacae/ Kleb pneumo/ Kleb oxytoca/ VR-Enterococcus casseliflavus Septic shock-resolved Hypertension-continue amlodipine Plan As a result of the above findings & factors, the following mgmt was pursued: - as above - am labs, replace lytes prn - PT/OT/CM/SW - delirium precautions: increase activity - DVT prophylaxis: heparin and encourage ambulation Complexity: Acute illness or injury posing a threat to life or body function (HIGH). Risk: Prescription drug/IVF/colloid was initiated, discontinued, adjusted; or reviewed with decision to maintain current orders (MOD). Advance Directive: DNR-CCA Anticipated Discharge - Date - tomorrow - Location - Skilled Facility - Pending the following - hemoglobin stable Total time spent (which include face to face and non face to face encounters) : 25 minutes Extended Emergency Contact Information Primary Emergency Contact: Deshawn Crystal Mobile Relation: Brother Technical Coordinator needed? No Secondary Emergency Contact: Edward Ruggiero Mobile Relation: Significant Other Preferred language: Cambodian Technical Coordinator needed? No Gerard Carrillo DO Division of Hospitalist Medicine [facility] [1] Past Medical History: Diagnosis Date Chronic kidney disease (CKD) Hemodialysis patient ([facility]/HCC) ([facility]) Wednesday, , Wednesday History of blood transfusion 02/27/2022 Hypertension Seizure ([facility]) Developed seizure-like activity on 02/24 during hospital admission [2] acetaminophen, 1,000 mg, Oral, q8h amLODIPine, 5 mg, Oral, Daily chlorhexidine, , Topical, Daily collagenase, , Topical, Daily [Held by provider] heparin, 5,000 Units, SubCUTAneous, 2 times per day levETIRAcetam, 500 mg, Oral, Daily melatonin, 5 mg, Oral, Nightly [Held by provider] sevelamer carbonate, 800 mg, Oral, TID WC sodium chloride 0.9%, 5-40 mL, IntraVENous, 2 times per day sodium chloride 0.9%, 5-40 mL, IntraCATHeter, q8h sulfamethoxazole-trimethoprim, 1 tablet, Oral, Daily [3] PRN medications: collagenase, heparin, heparin, HYDROmorphone, naloxone, ondansetron ODT OR ondansetron, oxyCODONE, polyethylene glycol (PEG) 3350, sodium chloride, sodium chloride, sodium chloride, sodium chloride, sodium chloride, sodium chloride, sodium chloride, sodium chloride, sodium chloride 0.9%, sodium chloride 0.9% [4] Hospitalist Progress Note 11/08/2024 Subjective: Admit Date: 10/22/2024 PCP: Roxie Spain Room#: [id number] A BRIEF HOSPITAL COURSE: 74-year-old female presenting with fever and tachycardia.history of hypertension, hyperlipidemia, ESRD on hemodialysis and previous history of seizures she has had frequent hospitalizations in the last several months. From , to August 24 she had an infected hematoma in the right thigh and anterior hip. She had a wound VAC after it was drained. She returned to the hospital on August 26, 2024 for the expanding hematoma requiring 2 units of PRBCs. From September 13 to October 12, 2024, she was treated for new onset atrial fibrillation complicated by COVID-19 infection. At that time, she was also positive for Enterobacter cloacae bacteremia, Klebsiella pneumoniae, Klebsiella oxytoca. She was sent to the ICU transiently due to high fevers, tachycardia, and tachypnea which might have been a drug reaction to meropenem she was on. She was also treated for C. difficile colitis. She had a tunneled HD catheter placed on discharge. She is discharged to nursing facility. There is concern that she had a fistula infection and could be potentially the source. She had an excision of the left upper extremity infected graft on November 02, 2024. Infectious disease recommended Bactrim renally dosed through November 13. Nephrology has been following for dialysis. From November 04 to November 05, she was having bleeding from her AV fistula requiring blood transfusions and on November 05 she had an ex lap of the left upper extremity with evacuation of hematoma. Interval History: She was having increasing pain today in her left upper extremity and did require dose of IV Dilaudid today. She had some bleeding at the wound site, but it was somewhat minimal. Her hemoglobin has been stable. Adult diet Regular 24HR INTAKE/OUTPUT: Intake/Output Summary (Last 24 hours) at 11/08/2024 1442 Last data filed at 11/08/2024 1356 Gross per 24 hour Intake 530 ml Output -- Net 530 ml Past Medical History: Medical History[1] LABS: CBC: Recent Labs 11/06/2421511/07/2410711/08/24 0326 WBC 15.6* 14.1* 13.0* RBC 3.23* 2.66* 2.60* HGB 9.3* 7.6* 7.5* HCT 27.6* 23.6* 23.1* MCV 85.4 88.7 88.8 RDW 17.4* 17.5* 17.0* PLT 388 377 376 BMP: Recent Labs 11/06/2421511/07/2410711/08/24 032 NA 138 139 135* K 4.7 4.8 4.0 CL 105 105 103 CO2 24 23 26 BUN 24* 37* 18 CREATININE 3.50* 4.35* 2.91* GLUCOSE 123* 82 67* CALCIUM 7.3* 7.2* 7.2* ANIONGAP 9 11 6 LIVER PROFILE:No results for input(s): AST, ALT, BILITOT, ALKPHOS, PROT in the last 72 hours. No lab exists for component: LABALBU PT/INR: No results for input(s): PROTIME, INR in the last 72 hours. CARDIAC ENZYMES: No results for input(s): TROPONINI in the last 72 hours. Procalcitonin: No results found for: PROCAL COVID-19 PCR: No results for input(s): COVID19 in the last 72 hours. Objective: Vitals: BP 145/89 Pulse 104 Temp 36.8 C (98.3 F) (Temporal) Resp 20 Ht 5' 4 (1.626 m) Wt 116 lb 4.8 oz (52.8 kg) SpO2 97% BMI 19.96 kg/m Pulse Ox: SpO2 Av.3 % Min: 97 % Max: 98 % Supplemental O2: O2 Flow Rate (L/min): 6 L/min Physical Exam Constitutional: Comments: Conversational today, looks much improved from when I saw her about a month past. Was alert and indicated feeling well. Cardiovascular: Rate and Rhythm: Normal rate. Pulses: Normal pulses. Pulmonary: Effort: Pulmonary effort is normal. No respiratory distress. Breath sounds: No wheezing. Abdominal: Palpations: Abdomen is soft. Medications: Scheduled PRN Scheduled Meds[2] PRN Meds[3] Continuous Continuous Meds[4] Assessment Acute, acute on chronic, unstable/uncontrolled chronic problems/diagnoses: Sepsis Sepsis due to both pressure ulcer and AV graft Infectious disease had recommended Bactrim renally dosed through November 13, will continue this. She had an excision of the left upper extremity infected graft. She is having increasing pain from the infected graft site. Plan -Continue Bactrim until November 13 - I took off the IV Dilaudid and increase the frequency of her oxycodone, hopefully we can get her off any IV pain meds and just do oral so we can get her going to nursing facility tomorrow. Acute blood loss Anemia She required transfusions and she had ex lap of the left upper extremity with evacuation of her hematoma. Plan -Hemoglobin has been stable, some minor bleeding from surgical site Stable chronic problems affecting care, new non-acute diagnoses: ESRD on hemodialysis-nephrology following Hx of recent covid infection Hx of infected hematoma status post I&D Seizure History-cont keppra Hx of recent c dif infection Hx of recent Enterobacter cloacae/ Kleb pneumo/ Kleb oxytoca/ VR-Enterococcus casseliflavus Septic shock-resolved Hypertension-continue amlodipine Plan As a result of the above findings & factors, the following mgmt was pursued: - as above - am labs, replace lytes prn - PT/OT/CM/SW - delirium precautions: increase activity - DVT prophylaxis: heparin and encourage ambulation Complexity: Acute illness or injury posing a threat to life or body function (HIGH). Risk: Prescription drug/IVF/colloid was initiated, discontinued, adjusted; or reviewed with decision to maintain current orders (MOD). Advance Directive: DNR-CCA Anticipated Discharge - Date - tomorrow - Location - Skilled Facility - Pending the following - hemoglobin stable Total time spent (which include face to face and non face to face encounters) : 25 minutes Extended Emergency Contact Information Primary Emergency Contact: Deshawn Crystal Mobile Relation: Brother Technical Coordinator needed? No Secondary Emergency Contact: Edward Ruggiero Mobile Relation: Significant Other Preferred language: Cambodian Technical Coordinator needed? No Gerard Carrillo DO Division of Hospitalist Medicine [facility] [1] Past Medical History: Diagnosis Date Chronic kidney disease (CKD) Hemodialysis patient (CMS/HCC) (HCC) Wednesday, , Wednesday History of blood transfusion 02/27/2022 Hypertension Seizure (HCC) Developed seizure-like activity on 02/24 during hospital admission [2] amLODIPine, 5 mg, Oral, Daily chlorhexidine, , Topical, Daily collagenase, , Topical, Daily heparin, 5,000 Units, SubCUTAneous, 2 times per day levETIRAcetam, 500 mg, Oral, Daily [Held by provider] sevelamer carbonate, 800 mg, Oral, TID WC sodium chloride 0.9%, 5-40 mL, IntraVENous, 2 times per day sodium chloride 0.9%, 5-40 mL, IntraCATHeter, q8h sulfamethoxazole-trimethoprim, 1 tablet, Oral, Daily [3] PRN medications: acetaminophen OR acetaminophen, acetaminophen, collagenase, heparin, heparin, hydrALAZINE, labetalol, melatonin, naloxone, ondansetron ODT OR ondansetron, oxyCODONE, polyethylene glycol (PEG) 3350, sodium chloride, sodium chloride, sodium chloride, sodium chloride, sodium chloride, sodium chloride, sodium chloride, sodium chloride 0.9%, sodium chloride 0.9% [4] Nephrology Progress Note Following for Pt had some hypoglycemia this am given OJ would recc using apple juice or cranberry given K content Current Inpatient Medications: Reviewed on JUN. Vitals: BP 145/89 Pulse 104 Temp 36.8 C (98.3 F) (Temporal) Resp 20 Ht 1.626 m (5' 4) Wt 52.8 kg (116 lb 4.8 oz) SpO2 97% BMI 19.96 kg/m BLOOD PRESSURE RANGE: Systolic (24hrs), Av , Min:145 , Max:174 ; Diastolic (24hrs), Av, Min:86, Max:99 24HR INTAKE/OUTPUT: Intake/Output Summary (Last 24 hours) at 11/08/2024 1208 Last data filed at 11/08/2024 0830 Gross per 24 hour Intake 680 ml Output 1400 ml Net -720 ml Data: Labs: Recent Labs 11/06/24 0216 11/07/24 0108 11/08/24 0326 WBC 15.6* 14.1* 13.0* HGB 9.3* 7.6* 7.5* HCT 27.6* 23.6* 23.1* MCV 85.4 88.7 88.8 PLT 388 377 376 Recent Labs 11/06/2421511/07/24 0108 11/08/24 0326 NA 138 139 135* K 4.7 4.8 4.0 CL 105 105 103 CO2 24 23 26 GLUCOSE 123* 82 67* CALCIUM 7.3* 7.2* 7.2* BUN 24* 37* 18 CREATININE 3.50* 4.35* 2.91* Assessment and Plan: 74 yo female with pmhx of ESRD, HTN, seizure infected AV graft. ESRD on TTS HD - HD tomorrow - TDC CDI Volume. Traced edema to LE - Bp acceptable - UF as tolerated with HD Acute on chronic Anemia in CKD. Av graft hematoma - HODAN as OP - follow H&H -Transfuse forhgb <7.5 - blood TF per primary team CKDMBD. Not on binders at this time - check phos in AM - phos gaol 3.5-5.5 Plan Continue monitoring surgical site for bleeding, infection, or hematoma recurrence. Daily CBC to trend hemoglobin and hematocrit. Maintain hemodynamic stability, monitor volume status closely. Coordinate with dialysis team to resume access use when cleared by surgery. No immediate need for additional intervention; patient stable postoperatively continue HD TTS , Thank you for allowing me to care for pt. Feel free to reach out with any questions or concerns Karis Stone APRN AGENCY TRAINER A-G MILLINERY DEPARTMENT MANAGER [facility] [phone] Pt seen and examined independently by me. I reviewed with Karis Stone APRN-TAMIR the saavedra portions of the medical history and the findings on physical examination. I discussed the patient s saavedra portions of the diagnosis and concur with the treatment plan as documented in her note. Please message me through Epic with any questions or concerns. Sean Castaneda MD [facility] - Infectious Diseases Attending Progress Note Subjective: ID following- last seen at [facility] on 11/02- transferred to [facility] for Vascualr evaluation of suspected infected LUE AVF, and underwent excision of graft on 11/02. Postoperative complication of bleeding and RTOR 11/05 for evacuation of old clots. 11/02 ORcultures obtained-neg to date. She has remained on Bactrim DS. Still with some oozing from proximal wounds, pain about the same but no numbness or weakness distally. More alert now, mentation back to baseline. Afebrile. Objective: Vitals: Patient Vitals for the past 24 hrs: BP Temp Temp src Pulse Resp SpO2 Weight 11/07/24 1259 (!) 165/86 36.7 C (98 F) -- 99 18 99 % -- 11/07/24 1243 (!) 167/99 -- -- 100 17 -- -- 11/07/24 1230 (!) 174/95 -- -- 102 18 -- -- 11/07/24 1215 (!) 161/99 -- -- 103 18 -- -- 11/07/24 1200 160/94 -- -- 101 18 -- -- 11/07/24 1145 (!) 173/87 -- -- 100 17 -- -- 11/07/24 1130 160/84 -- -- 100 18 -- -- 11/07/24 1115 (!) 165/89 -- -- 99 19 -- -- 11/07/24 1100 160/87 -- -- 100 17 -- -- 11/07/24 1045 154/86 -- -- 94 18 -- -- 11/07/24 1030 (!) 163/89 -- -- 92 17 -- -- 11/07/24 1015 151/93 -- -- 92 16 -- -- 11/07/24 1000 (!) 161/91 -- -- 87 18 -- -- 11/07/24 0943 (!) 180/94 -- -- 86 19 -- -- 11/07/24 0912 159/94 36.8 C (98.3 F) -- 88 19 99 % -- 11/07/24 0753 157/96 36.7 C (98.1 F) Temporal 87 19 100 % -- 11/07/24 0611 -- -- -- -- -- -- 54.7 kg (120 lb 11.2 oz) 11/06/24 1918 138/88 37.2 C (99 F) Temporal 98 18 99 % -- Physical Exam Vitals reviewed. Constitutional: General: She is not in acute distress. Appearance: She is ill-appearing (thin , chronically). She is not toxic-appearing. Cardiovascular: Rate and Rhythm: Normal rate and regular rhythm. Heart sounds: Normal heart sounds. No murmur heard. Pulmonary: Effort: Pulmonary effort is normal. No respiratory distress. Breath sounds: Normal breath sounds. Musculoskeletal: General: Signs of injury (LUE with kerlix dressing, nl ROM otherwise, palplable distal pulse) present. Neurological: General: No focal deficit present. Mental Status: She is alert and oriented to person, place, and time. Psychiatric: Thought Content: Thought content normal. Labs: Lab Results Component Value Date/Time NA 139 11/07/2024 0108 K 4.8 11/07/2024 0108 CL 105 11/07/2024 0108 CO2 23 11/07/20248 BUN 37 (H) 11/07/2024107 CREATININE 4.35 (H) 11/07/2024 0108 GLUCOSE 82 11/07/2024 0108 CALCIUM 7.2 (L) 11/07/2024 0108 PROT 5.6 (L) 10/24/2024 0649 BILITOT 0.5 10/24/2024 0649 ALKPHOS 150 10/24/2024 0649 AST 28 10/24/2024 0649 ALT <6 10/24/2024 0649 PROCAL 68.03 (H) 10/05/2024 1419 PROCAL 19.25 (H) 09/15/2024 0308 PROCAL 76.25 (H) 09/14/2024 0541 Lab Results Component Value Date/Time WBC 14.1 (H) 11/07/2024107 HGB 7.6 (L) 11/07/2024107 HGB 9.1 10/05/2024 1419 HCT 23.6 (L) 11/07/2024107 PLT 377 11/07/2024107 LYMPHOPCT 22.2 11/07/2024107 LYMPHOPCT 8 (L) 11/01/2024316 MONOPCT 6.8 11/07/2024107 MONOPCT 2 (L) 11/01/2024316 BASOPCT 1.0 11/07/2024107 BASOPCT 1 11/01/2024316 NEUTROABS 9.1 (H) 11/07/2024107 Micro: 11/02 OR cultres(LUE Tissue): neg, 10/24 LUE wound drainage: E cloacae Lines: Radiography/Echo/Other: reviewed Antimicrobials, Start/End Dates: Meropenem to Bactrim DS daily( EOT planned 11/13) Impression: 74 F admitted with fever, change MS(confusion)from ECF: Severe sepsis. resolvedWBC trending down Infected left buttock pressure ulcer due to enterobacter cloacae complex. Photo on Media tab- does not appear grossly infected, fibrinous base. nfected left arm fistula with E cloacae as well. s/p excision of AVF 11/02, and complicated by postoperative bleeding, clots, requiring RTOR 11/05 for evacuation of hematoma. Encephalopathy- back to baseline, resolved Leukocytosis-normalizing ESRD, on HD. Recent h/o Enterobacter cloacae/ Kleb pneumo/ Kleb oxytoca/ VR-Enterococcus casseliflavus BSI. Possble due to #3, instead of infected hematoma previously assumed and treated for in September 2024. Recent h/o C diff colitis. Overall back to baseline. Improved. Plan: Continue Bactrim as outlined previously. Local wound care per Vascular Surgery. Will follow. Based on diagnoses and management, combination of acute and chronic problems, exacerbations and/or acuity, this visit should be considered to be of moderate complexity. Nephrology Progress Note Following for ESRD Pt seen in room on HD Denoies any CP SOB nVD or cramping States HD is going well BP started High starting to come down with HD UF as BP allows Current Inpatient Medications: Reviewed on JUN. Vitals: BP (!) 173/87 Pulse 100 Temp 36.8 C (98.3 F) Resp 17 Ht 1.626 m (5' 4) Wt 54.7 kg (120 lb 11.2 oz) SpO2 99% BMI 20.72 kg/m BLOOD PRESSURE RANGE: Systolic (24hrs), Av , Min:138 , Max:180 ; Diastolic (24hrs), Av, Min:84, Max:96 24HR INTAKE/OUTPUT: Intake/Output Summary (Last 24 hours) at 11/07/2024 1150 Last data filed at 11/07/2024 0608 Gross per 24 hour Intake 700 ml Output 0 ml Net 700 ml Physical exam: Constitutional: nad Skin: no rash, turgor wnl Heent: eomi, mmm Neck: no bruits or jvd noted Cardiovascular: Normal S1, S2 without m/r/g Respiratory: CTAB without w/r/r Abdomen: +bs, soft, nt, nd Ext: + lower extremity edema Data: Labs: Recent Labs 11/05/24 0434 11/05/24 0617 11/05/24 1453 11/06/24 0216 11/07/24 0108 WBC 14.6* -- -- 15.6* 14.1* HGB 6.6* < > 9.4* 9.3* 7.6* HCT 20.3* < > 28.2* 27.6* 23.6* MCV 87.5 -- -- 85.4 88.7 PLT 391 -- -- 388 377 < > = values in this interval not displayed. Recent Labs 11/05/24 0434 11/06/24 0216 11/07/24 0108 NA 138 138 139 K 3.8 4.7 4.8 CL 104 105 105 CO2 25 24 23 GLUCOSE 66* 123* 82 CALCIUM 7.3* 7.3* 7.2* BUN 13 24* 37* CREATININE 2.53* 3.50* 4.35* Assessment and Plan: 74 yo female with pmhx of ESRD, HTN, seizure infected AV graft. ESRD on TTS HD - seen on HD today no complaints - TDC CDI Volume. Traced edema to LE - Bp acceptable - UF as tolerated with HD Acute on chronic Anemia in CKD. Av graft hematoma - HODAN as OP - follow H&H Transfuse forhgb <7.5 - blood TF per primary team CKDMBD. Not on binders at this time - check phos in AM - phos gaol 3.5-5.5 Plan Continue monitoring surgical site for bleeding, infection, or hematoma recurrence. Daily CBC to trend hemoglobin and hematocrit. Maintain hemodynamic stability, monitor volume status closely. Coordinate with dialysis team to resume access use when cleared by surgery. No immediate need for additional intervention; patient stable postoperatively Seen on HD today no complaints continue HD TTS , Thank you for allowing me to care for pt. Feel free to reach out with any questions or concerns Karis Stone APRN, CNP A-G MILLINERY DEPARTMENT MANAGER [facility] [place] [phone] Pt seen and examined independently by me. I reviewed with Karis Stone APRN-TAMIR the saavedra portions of the medical history and the findings on physical examination. I discussed the patient s saavedra portions of the diagnosis and concur with the treatment plan as documented in her note. Please message me through [employer]! with any questions or concerns. Sean Castaneda MD Paged by nursing w/ concern for patients LUE incision site and notabke pain. Patient was seen and examined at the bedside. Patient notes her pain is relatively unchanged from prior days. Otherwise no new symptoms or complaints. Dressing w/ some minimal SS strikethrough on initial evaluation. Dressing was taken down. LUE Incisions were clean and intact w/ some scant SS output from the middle incision. Otherwise no new hematoma palpable. Radial pulses were 2+ b/l. Interval H/H drop noted, but consistent w/ prior chronic anemia prior to vascular intervention and remains otherwise asymptomatic. Dressing was replaced and reevaluated 1 hr later. No new SS output in interval. No need for further vascular surgery intervention at this time. Chris Wills MD Uro PGY1 Hospitalist Progress Note 11/07/2024 Subjective: Admit Date: 10/22/2024 PCP: Roxie Spain Room#: W6-637/W6-637 A BRIEF HOSPITAL COURSE: 74-year-old female presenting with fever and tachycardia.history of hypertension, hyperlipidemia, ESRD on hemodialysis and previous history of seizures she has had frequent hospitalizations in the last several months. From , to August 24 she had an infected hematoma in the right thigh and anterior hip. She had a wound VAC after it was drained. She returned to the hospital on August 26, 2024 for the expanding hematoma requiring 2 units of PRBCs. From September 13 to October 12, 2024, she was treated for new onset atrial fibrillation complicated by COVID-19 infection. At that time, she was also positive for Enterobacter cloacae bacteremia, Klebsiella pneumoniae, Klebsiella oxytoca. She was sent to the ICU transiently due to high fevers, tachycardia, and tachypnea which might have been a drug reaction to meropenem she was on. She was also treated for C. difficile colitis. She had a tunneled HD catheter placed on discharge. She is discharged to nursing facility. There is concern that she had a fistula infection and could be potentially the source. She had an excision of the left upper extremity infected graft on November 02, 2024. Infectious disease recommended Bactrim renally dosed through November 13. Nephrology has been following for dialysis. From November 04 to November 05, she was having bleeding from her AV fistula requiring blood transfusions and on November 05 she had an ex lap of the left upper extremity with evacuation of hematoma. Interval History: Was messaged by the nurse that she had blood and clear fluid coming from her wound. Surgery evaluated and they were not concerned about this. Her hemoglobin did drop from 9.4-7.6. She is overall feeling well though without any new symptoms. Adult diet Regular 24HR INTAKE/OUTPUT: Intake/Output Summary (Last 24 hours) at 11/07/2024 0829 Last data filed at 11/07/2024 0608 Gross per 24 hour Intake 700 ml Output 0 ml Net 700 ml Past Medical History: Medical History[1] LABS: CBC: Recent Labs 11/05/24 0434 11/05/24 0617 11/05/24 1453 11/06/24 0216 11/07/24 0108 WBC 14.6* -- -- 15.6* 14.1* RBC 2.32* -- -- 3.23* 2.66* HGB 6.6* < > 9.4* 9.3* 7.6* HCT 20.3* < > 28.2* 27.6* 23.6* MCV 87.5 -- -- 85.4 88.7 RDW 17.3* -- -- 17.4* 17.5* PLT 391 -- -- 388 377 < > = values in this interval not displayed. BMP: Recent Labs 11/05/24 04311/06/24 02111/07/24 0108 NA 138 138 139 K 3.8 4.7 4.8 CL 104 105 105 CO2 25 24 23 BUN 13 24* 37* CREATININE 2.53* 3.50* 4.35* GLUCOSE 66* 123* 82 CALCIUM 7.3* 7.3* 7.2* ANIONGAP 9 9 11 LIVER PROFILE:No results for input(s): AST, ALT, BILITOT, ALKPHOS, PROT in the last 72 hours. No lab exists for component: LABALBU PT/INR: No results for input(s): PROTIME, INR in the last 72 hours. CARDIAC ENZYMES: No results for input(s): TROPONINI in the last 72 hours. Procalcitonin: No results found for: PROCAL COVID-19 PCR: No results for input(s): COVID19 in the last 72 hours. Objective: Vitals: BP 157/96 (BP Location: Right arm, Patient Position: Sitting) Pulse 87 Temp 36.7 C (98.1 F) (Temporal) Resp 19 Ht 5' 4 (1.626 m) Wt 120 lb 11.2 oz (54.7 kg) SpO2 100% BMI 20.72 kg/m Pulse Ox: SpO2 Av.5 % Min: 99 % Max: 100 % Supplemental O2: O2 Flow Rate (L/min): 6 L/min Physical Exam Constitutional: Comments: Conversational today, looks much improved from when I saw her about a month past. Was alert and indicated feeling well. Cardiovascular: Rate and Rhythm: Normal rate. Pulses: Normal pulses. Pulmonary: Effort: Pulmonary effort is normal. No respiratory distress. Breath sounds: No wheezing. Abdominal: Palpations: Abdomen is soft. Medications: Scheduled PRN Scheduled Meds[2] PRN Meds[3] Continuous Continuous Meds[4] Assessment Acute, acute on chronic, unstable/uncontrolled chronic problems/diagnoses: Sepsis Sepsis due to both pressure ulcer and AV graft Infectious disease had recommended Bactrim renally dosed through November 13, will continue this. She had an excision of the left upper extremity a infected graft. Plan -Continue Bactrim until November 13 Acute blood loss Anemia She required transfusions and she had ex lap of the left upper extremity with evacuation of her hematoma. Plan -Hemoglobin did drop slightly from yesterday to today, will continue to monitor with daily CBCs Stable chronic problems affecting care, new non-acute diagnoses: ESRD on hemodialysis-nephrology following Hx of recent covid infection Hx of infected hematoma status post I&D Seizure History-cont keppra Hx of recent c dif infection Hx of recent Enterobacter cloacae/ Kleb pneumo/ Kleb oxytoca/ VR-Enterococcus casseliflavus Septic shock-resolved Hypertension-continue amlodipine Plan As a result of the above findings & factors, the following mgmt was pursued: - as above - am labs, replace lytes prn - PT/OT/CM/SW - delirium precautions: increase activity - DVT prophylaxis: heparin and encourage ambulation Complexity: Acute illness or injury posing a threat to life or body function (HIGH). Risk: Prescription drug/IVF/colloid was initiated, discontinued, adjusted; or reviewed with decision to maintain current orders (MOD). Advance Directive: DNR-CCA Anticipated Discharge - Date - tomorrow - Location - Skilled Facility - Pending the following - hemoglobin stable Total time spent (which include face to face and non face to face encounters) : 25 minutes Extended Emergency Contact Information Primary Emergency Contact: Deshawn Crystal Mobile Relation: Brother Technical Coordinator needed? No Secondary Emergency Contact: Edward Ruggiero Mobile Relation: Significant Other Preferred language: Cambodian Technical Coordinator needed? No Gerard Carrillo DO Division of Hospitalist Medicine Acute [facility] [1] Past Medical History: Diagnosis Date Chronic kidney disease (CKD) Hemodialysis patient ([facility]) (HCC) Wednesday, , Wednesday History of blood transfusion 02/27/2022 Hypertension Seizure (HCC) Developed seizure-like activity on 02/24 during hospital admission [2] amLODIPine, 5 mg, Oral, Daily chlorhexidine, , Topical, Daily collagenase, , Topical, Daily heparin, 5,000 Units, SubCUTAneous, 2 times per day levETIRAcetam, 500 mg, Oral, Daily [Held by provider] sevelamer carbonate, 800 mg, Oral, TID WC sodium chloride 0.9%, 5-40 mL, IntraVENous, 2 times per day sodium chloride 0.9%, 5-40 mL, IntraCATHeter, q8h sulfamethoxazole-trimethoprim, 1 tablet, Oral, Daily [3] PRN medications: acetaminophen OR acetaminophen, acetaminophen, collagenase, heparin, heparin, hydrALAZINE, labetalol, melatonin, morphine sulfate, naloxone, ondansetron ODT OR ondansetron, oxyCODONE, polyethylene glycol (PEG) 3350, sodium chloride, sodium chloride, sodium chloride, sodium chloride, sodium chloride, sodium chloride, sodium chloride, sodium chloride 0.9%, sodium chloride 0.9% [4] Nutrition Assessment Type and Reason for Visit: Reassess Nutrition Recommendations/Plan: Would continue with fully liberalized Regular diet, will continue to monitor acute renal labs however need to continue to encourage PO intake at meals. Pt already ordered Vanilla Magic Cup BID and Nepro once daily, still question if pt fully consuming ONS, will continue to send, no ONS observed in room accumulated. Please continue to record % consumed of meals in I/O Flowsheet. RD to monitor weight (confirm/monitor for Nephrology comment on pt's current EDW), labs, fluid, overall nutritional status & follow up weekly. Malnutrition Assessment: Malnutrition Status: At risk for malnutrition (Comment) (continue with ONS and liberalized diet; noted MD or AGENCY TRAINER had been documenting Severe Malnutrition since 10/23) Context: Acute Illness (still ? chronic with prior admissions) Findings of the 6 clinical characteristics of malnutrition: Energy Intake: Mild decrease in energy intake (Comment) (however likely <75% or less for one week, recorded PO intakes remain here 0-100%, in prior admits pt also had largely varied PO intakes) Weight Loss: Unable to assess (as previously noted last EDW may be ~104#; acute weights here ranging from 106# (admit) up to 121#, today 104# documented however 118# was observed by RD) Body Fat Loss: Unable to assess (pt not interactive during assessment) Muscle Mass Loss: Unable to assess (pt is estimated to likely have some loss ? beyond her baseline at least to hoahaoism, clavicle however could not quantify today) Fluid Accumulation: Mild (+2 LLE, nonpitting generalized/RLE edema) Property Condition Assessor Strength: Not Performed Nutrition Assessment: Pt with previously noted PMH including ESRD on HD, Seizures, HTN, HLD, recent admission to OSH for sudden cardiac arrest / right thigh/hip abscess s/p I&D 08/16 presented initially to [facility] from [facility] on 10/22 due to AMS; in ED pt noted to be febrile 101.3 at [facility], tachycardic, tachypneic and with elevated WBC, received IV fluid bolus, antibiotics, admitted to [facility] for further work up; Critical care consulted the following day as pt remained febrile, tachycardic and tachypneic, WBC count also continuing to increase with worsening anemia; pt has had multiple admissions 08/14 to 08/24 at [facility] for cardiac arrest, 08/26 to 09/06 at for sepsis believed to be due to an infected right thigh wound and hematoma; [facility] from 09/13-10/12 w/ COVID-19 due to covid-19, electrolyte derangements, Enterobacter cloacae, Klebsiella pneumonia, Klebsiella oxytocin and VR Enterococcus which were treated for complete course, also, had C. difficile colitis which was treated, had tunneled HD catheter placed on discharge on 10/12; at [facility] PT/OT/LP, ID, Nephrology, and Wound Care consulted; pt was transferred out of ICU services to medical services on 10/24, noted to be receiving Meropenem and Vancomycin IV (stopped, transitioned to oral abx) for infected pressure ulcer on left buttocks; at [facility] Palliative Care was following, speaking with pt's brother, code status changed to DNR-CCA; pt noted to need fistula placement for HD, has temp HD cath in place, transferred to [facility] 10/31 for new fistula placement; here Vascular was consulted for same, recommended OR for assessment of AV fistula clot/infection 11/02; s/p further blood transfusion 11/02, 11/05 (hemoglobin today 9.3 mg/dL), 11/04-11/05 pt was having bleeding from AV fistula requiring transfusions, yesterday pt underwent exploration of LUE with evacuation of hematoma; last HD 11/04. CAREER RESOURCE SPECIALIST following (signed off last week), diet progressed to Regular from Soft and Bite Sized 10/30, recorded intakes this admission remain largely varied (0-100%), receiving Magic Cup and Nepro ONS. RD visited pt's room this afternoon, pt kept eyes closed and was minimally interactive during conversation (only stating/mumbling 'mhm'), RD asked if pt had lunch already, if she is drinking ONS, etc and her responses were all 'mhm'; per Diet Office pt had a house tray for lunch however breakfast was comoran toast and coffee, dinner is not a house tray (pt is Dietary Assist), there were no observed ONS in room. Nutrition Related Findings: pos I/O (7.8L); missing teeth, +BS, last BM 11/04, constipation; nonpitting generalized/RLE and +2 LLE edema; medications reviewed; labs: SCr (3.50), BG (123), Hemoglobin (9.3) Wound Type: Pressure Injury, Unstageable (sacrum extending to L buttock) Current Nutrition Therapies: Adult diet Regular Current Oral Intake Average Meal Intake: 0%, 1-25%, 26-50%, 51-75%, 76-100% (per flowsheet, remains varied as it has during length of admission) Average Supplements Intake: Unable to assess (pt minimally interactive, no ONS noted in room) Anthropometric Measures: Height: 162.6 cm (5' 4) Current Body Weight: 51 kg (112 lb 7 oz) (10/31 weight per chart; acute weights flucuated, up to 117#; per chart, most recent EDW may be 104#; today pt had just returned to room at time of RD visit this afternoon) Weight Source: Bed Scale Admission Body Weight: 48.3 kg (106 lb 7.7 oz) Usual Body Weight: 48.9 kg (107 lb 12.8 oz) (Per EMR--> 110# 08/09/23; 105.4# 03/03/24; 112# 06/09/24; 107.8# 08/26/24; 114.4# 10/06/24 bed scale) % Weight Change (Calculated): -1.2 [place] Body Weight (lbs) (Calculated): 120 lbs [place] Body Weight (Kg) (Calculated): 55 kg % [place] Body Weight (Calculated): 97.7 % BMI (kg/m2) (Calculated): 19.3 Weight Adjustment For: No Adjustment BMI Categories: Underweight (BMI less than 22) age over 65 Nutrition Interventions: Nutrition Education/Counseling: Education not appropriate Coordination of Nutrition Care: Continue to monitor while inpatient Plan of Care discussed with: N/A Goals: Previous Goal Met: No Progress toward Goal(s) Goals: PO intake 75% or greater, by next RD assessment Nutrition Monitoring and Evaluation: Behavioral-Environmental Outcomes: Knowledge or Skill Food/Nutrient Intake Outcomes: Food and Nutrient Intake, Supplement Intake Physical Signs/Symptoms Outcomes: Biochemical Data, Fluid Status or Edema, Meal Time Behavior, GI Status, Nutrition Focused Physical Findings, Skin, Weight Discharge Planning: Too soon to determine Alexus Denney RD Contact: Secure chat or *[phone] Images from the original note were not included. PHYSICAL THERAPY [facility] Treatment Note Name/MRN: Apoorva Gonzalez ([id number]) Date of : 1950 Age: 74 y.o. Room/Bed: W6-637/W6-637 A Discharge Recommendation: [facility] Equipment Needed: No Assessment Pt motivated to participate and is progressing towards goals. Required max assist for bed mobility, mod assist for transfers, and mod assist for ambulation 3ft with FWW. Continue to rec SNF due to decreased strength & balance with high risk for falls, decreased safety & indep in mobility, & decreased activity tolerance with inability to care for self. Subjective Pt resting in bed and agreeable to PT tx; RN okayed session Pain: Pt denies any current pain. Medical Precautions: Contact Proper PPE donned/doffed in accordance with facility standards. Fall Risk: [place] Fall Risk Score: 45 (High Risk) Precautions/Restrictions: Lines/Drains/Airways: bed alarm Overall Cognitive Status: Exceptions - Initiation: requires cues for some - Sequencing: requires cues for some Overall Orientation Status: Oriented to Place, Oriented to Time, and Oriented to Person Family/Caregiver Present: none Objective Bed Mobility Supine to sit: Max Assist Sit to supine: Max Assist Transfers/Mobility Sit to stand: Mod Assist Stand to sit: Mod Assist From EOB x1 and from recliner chair x1 Device(s) used: Front wheeled walker Ambulation Ambulation 1 Assistive device(s) used: Front wheeled walker Assist level: Mod Assist Distance (ft): 3ft x2 (seated rest between trials) Quality of gait: slow kell, shuffling steps, intermittent posterior trunk lean; cues for FWW management Balance During Session: Posture: fair Sitting - Static: Supervision Sitting - Dynamic: Contact Guard Standing - Static: Min Assist Standing - Dynamic: Mod Assist Standing posture and balance training with stance at FWW with BUE support and lateral weight shifting and stepping in place; tolerated x3 min with min-mod assist Exercises Seated BLE Exercises for improved strength & mobiltiy Gluteal Sets: x10 Hip Flexion: seated alternating marhces x10 BLEs Hip Abduction: AROM x10 BLEs Hip Adduction: AROM x10 BLEs Knee Long Arc Quad: AROM x8 BLEs Ankle Pumps: x15 BLEs Comments: verbal and tactile cues for proper form/full ROM Plan Continue acute PT per plan of care. Safety/Education Safety Safety Devices in place: call light within reach, left in bed, bed alarm in place, and gait belt Restraints: No Education Education Given To: patient Education Provided: PT Role, PT Goals, Transfer Training, Fall Prevention Education, and Benefits of Increasing Activity Education Method: Verbal Barriers to Learning: None Education Outcome: Verbalized Understanding Outcome Measures AM-PAC AM-PAC Inpatient Mobility Raw Score (No Stairs) : 11 JH-HLM JH-HLM Score: Transferred to chair/commode Goals Patient Stated Goal: to get stronger Encounter Problems Encounter Problems (Active) Balance Patient will maintain static sitting balance for 10 minutes with SBA in order to demonstrate improved postural control and prepare for out of bed mobility. (Progressing) Start: 11/01/24 Expected End: 11/29/24 Mobility Patient will ambulate 10 feet with min assist and least restrictive device in order to improve safety and independence with mobility. (Progressing) Start: 11/01/24 Expected End: 11/29/24 Transfers Patient will perform bed mobility with CGA in order to improve independence and prepare for out of bed mobility. (Progressing) Start: 11/01/24 Expected End: 11/29/24 Patient will complete functional transfer with least restrictive device with min assist in order to prepare for ambulation. (Progressing) Start: 11/01/24 Expected End: 11/29/24 Therapy Time Individual Co-treatment Time In 1023 Time Out 1050 Minutes 27 Timed Code Treatment Minutes: 27 Minutes (1 unit TP, 1 unit FA) Ana Daily, PT Nephrology Progress Note Following for ESRD Pt seen in room nad Denies any CP SOB NVD S/p surgical evacuation of LUE heatoma and hemostasis of prior av graft site 11/05/24 L arm wrapped shadowing noticed on dressing Current Inpatient Medications: Reviewed on JUN. Vitals: BP 133/81 (BP Location: Right arm, Patient Position: Lying) Pulse 91 Temp 36.9 C (98.5 F) (Temporal) Resp 12 Ht 1.626 m (5' 4) Wt 47.2 kg (104 lb) SpO2 96% BMI 17.85 kg/m BLOOD PRESSURE RANGE: Systolic (24hrs), Av , Min:122 , Max:166 ; Diastolic (24hrs), Av, Min:71, Max:84 24HR INTAKE/OUTPUT: Intake/Output Summary (Last 24 hours) at 11/06/2024 1044 Last data filed at 11/06/2024 0000 Gross per 24 hour Intake 1174 ml Output 35 ml Net 1139 ml Physical exam: Constitutional: nad Skin: no rash, turgor wnl Heent: eomi, mmm Neck: no bruits or jvd noted Cardiovascular: Normal S1, S2 without m/r/g Respiratory: CTAB without w/r/r Abdomen: +bs, soft, nt, nd Ext: + lower extremity edema Data: Labs: Recent Labs 11/04/24 0250 11/05/24 0434 11/05/24 0617 11/05/24 1453 11/06/24 0216 WBC 15.5* 14.6* -- -- 15.6* HGB 7.7* 6.6* 5.8* 9.4* 9.3* HCT 23.0* 20.3* 18.0* 28.2* 27.6* MCV 86.5 87.5 -- -- 85.4 PLT 372 391 -- -- 388 Recent Labs 11/04/24 0100 11/05/24 0434 11/06/24 0216 NA 139 138 138 K 4.0 3.8 4.7 CL 104 104 105 CO2 24 25 24 GLUCOSE 79* 66* 123* CALCIUM 7.2* 7.3* 7.3* BUN 25* 13 24* CREATININE 3.47* 2.53* 3.50* Assessment and Plan: 74 yo female with pmhx of ESRD, HTN, seizure infected AV graft. ESRD on TTS HD - we will arrange for HD tomorrow - TDC CDI Volume. Traced edema to LE - Bp acceptable - UF as tolerated with HD Acute on chronic Anemia in CKD. Av graft hematoma - HODAN as OP - follow H&H - blood TF per primary team CKDMBD. Not on binders at this time - check phos in AM - phos gaol 3.5-5.5 Plan Continue monitoring surgical site for bleeding, infection, or hematoma recurrence. Daily CBC to trend hemoglobin and hematocrit. Maintain hemodynamic stability, monitor volume status closely. Coordinate with dialysis team to resume access use when cleared by surgery. No immediate need for additional intervention; patient stable postoperatively.HD TTS , Thank you for allowing me to care for pt. Feel free to reach out with any questions or concerns Karis Stone APRN AGENCY TRAINER A-G MILLINERY DEPARTMENT MANAGER [facility] [place] [phone] Pt seen and examined independently by me. I reviewed with Karis Stone APRN-TAMIR the saavedra portions of the medical history and the findings on physical examination. I discussed the patient s saavedra portions of the diagnosis and concur with the treatment plan as documented in her note. Please message me through Epic with any questions or concerns. Sean Castaneda MD Vascular Surgery Progress Note SUBJECTIVE: NAEON. Pain is controlled. LUQ is wrapped with ROSEY bandage without strikethrough and left radial pulse remains palpable. She reports feeling much better today than yesterday. Ate some food yesterday. Denies fevers or chills. ROS: As above unless otherwise noted here OBJECTIVE: Vitals: 11/05/242033 BP: 122/71 Pulse: 112 Resp: 20 Temp: 36.8 C (98.3 F) SpO2: 96% Intake and output: -Reviewed PHYSICAL EXAMINATION: GENERAL: no acute distress HEAD: Normocephalic, Atraumatic EYES: no drainage NECK: Supple, No Jvd PULMONARY: Normal Respiratory Effort, No Respiratory Distress, No Stridor, Chest Non-Tender CARDIO: Regular Rate ABDOMEN: Soft, no tenderness Is Present : Not Examed EXTREMITIES: Skin Warm And Well Perfused, No Cyanosis, Atraumatic MUSCULOSKELETAL: Motor/sensation intact NEURO: No Focal Neuro Defecits, Motor And Sensation Grossly Intact VASCULAR: Strong left radial pulse. LUE dressing removed with very minimal SS strikethrough and no hematoma. Artery Left Right Carotid Palpable [] Doppler Signal [] Palpable [] Doppler Signal [] Radial Palpable [x] Doppler Signal [] Palpable [x] Doppler Signal [] Ulnar Palpable [] Doppler Signal [] Palpable [] Doppler Signal [] Femoral Palpable [] Doppler Signal [] Palpable [] Doppler Signal [] Popliteal Palpable [] Doppler Signal [] Palpable [] Doppler Signal [] Dorsalis Pedis Palpable [] Doppler Signal [] Palpable [] Doppler Signal [] Posterior Tibial Palpable [] Doppler Signal [] Palpable [] Doppler Signal [] Lab/imaging: -Reviewed ASSESSMENT: Apoorva Gonzalez is a 74 y.o. female s/p left upper extremity AV graft excision. PLAN: No further vascular surgery invention at this time Continue to monitor left upper extremity wound Dress as needed with Kerlix and ROSEY Wrap Hemoglobin stable today 9.3 from 9.4 Culture no growth to date, on Bactrim Hemodialysis T, , S Rest of care per primary team Vascular surgery will sign off, please call with questions or concerns WDW Dr. Fernandez Cosigned by Raffy Fernandez MD at 11/06/2024 4:42 PM EDT Associated attestation - Raffy Fernandez MD - 11/06/2024 4:42 PM EDT Left radial pulse palpable. No significant bleeding. Hgb remains stable today. Vascular surgery will sign off. Please call with any questions or concerns. Outpatient follow up will be arranged. Hospitalist Progress Note 11/06/2024 Subjective: Admit Date: 10/22/2024 PCP: Roxie Spain Room#: W6-637/W6-637 A Interval History: No acute events overnight. Patient is resting in bed. Discussed with patient's RN Jamie. Adult diet Regular 24HR INTAKE/OUTPUT: Intake/Output Summary (Last 24 hours) at 11/06/2024 0703 Last data filed at 11/06/2024 0000 Gross per 24 hour Intake 1494 ml Output 35 ml Net 1459 ml Past Medical History: Medical History[1] LABS: CBC: Recent Labs 11/04/24 0250 11/05/24 0434 11/05/24 0617 11/05/24 1453 11/06/24 0216 WBC 15.5* 14.6* -- -- 15.6* RBC 2.66* 2.32* -- -- 3.23* HGB 7.7* 6.6* 5.8* 9.4* 9.3* HCT 23.0* 20.3* 18.0* 28.2* 27.6* MCV 86.5 87.5 -- -- 85.4 RDW 18.0* 17.3* -- -- 17.4* PLT 372 391 -- -- 388 BMP: Recent Labs 11/04/24 0100 11/05/24 0434 11/06/24 0216 NA 139 138 138 K 4.0 3.8 4.7 CL 104 104 105 CO2 24 25 24 BUN 25* 13 24* CREATININE 3.47* 2.53* 3.50* GLUCOSE 79* 66* 123* CALCIUM 7.2* 7.3* 7.3* ANIONGAP 11 9 9 LIVER PROFILE:No results for input(s): AST, ALT, BILITOT, ALKPHOS, PROT in the last 72 hours. No lab exists for component: LABALBU PT/INR: No results for input(s): PROTIME, INR in the last 72 hours. CARDIAC ENZYMES: No results for input(s): TROPONINI in the last 72 hours. Procalcitonin: No results found for: PROCAL COVID-19 PCR: No results for input(s): COVID19 in the last 72 hours. Objective: Vitals: BP 122/71 (BP Location: Right arm) Pulse 112 Temp 36.8 C (98.3 F) (Temporal) Resp 20 Ht 5' 4 (1.626 m) Wt 104 lb (47.2 kg) SpO2 96% BMI 17.85 kg/m Pulse Ox: SpO2 Av.4 % Min: 96 % Max: 100 % Supplemental O2: O2 Flow Rate (L/min): 6 L/min Physical Exam HENT: Head: Normocephalic and atraumatic. Cardiovascular: Rate and Rhythm: Normal rate and regular rhythm. Pulmonary: Effort: Pulmonary effort is normal. No respiratory distress. Abdominal: General: Bowel sounds are normal. Palpations: Abdomen is soft. Musculoskeletal: Comments: Left upper extremity dressing noted clean dry and intact. Medications: Scheduled PRN Scheduled Meds[2] PRN Meds[3] Continuous Continuous Meds[4] Assessment 74 yo female presented with fever and tachycardia and lethargy to [facility] on 10/22/24. HC POA is partner = Edward and brother Deshawn Recently admitted from 09/13 to 10/12 at [facility] for new onset atrial fibrillation complicated by COVID 19 infection, Enterobacter cloacae, Klebsiella pneumonia, Klebsiella oxytocin and VR Enterococcus which she was treated for complete course. Went into septic shock at that time for increased leukocytosis and C. difficile colitis which was treated.Requiring ICU admission during admission and tunneled HD catheter placed on discharge on 10/12 prior to going to hospital. recent infected hematoma which was I&D at [facility] and treated with antibiotics from 08/14-08/24 in which she went under cardiac arrest which was thought to be due to the right thigh and anterior hip abscess - which was drained and she left with wound vac. Returned on 08/26 for expanding hematoma to the right thigh requiring 2 units of pRBC, and transferred to [facility] for IR emobolization of thigh hematoma, but a decision was made not to perform any intervention and she was discharged to SNF on 09/06. 10/22-10/31 [facility] ICU. Patient did not require vasopressors. October 28 transferred to [facility]. October 31 decided to transfer patient to [facility] for vascular assessment of fistula to see for if the fistula is potentially source of infection. 10/23 Successful uncomplicated ultrasound and fluoroscopically guided left sided central line placement. The catheter is ready for immediate use. 11/02 EXCISION OF LEFT UPPER EXTREMITY INFECTED GRAFT Infectious diseease recommends Bactrim renally dosed through November 13 Nephrology following for dialysis Palliative care following, CODE STATUS DO NOT RESUSCITATE CCA November 04 through November 05 patient was having bleeding from AV fistula quiring blood transfusions. On November 05 underwent exploration of left upper extremity with evacuation of hematoma Sepsis Sepsis due to both pressure ulcer and AV graft infected pressure ulcer on left buttocks secondary to Enterobacter because of a complex 11/02 EXCISION OF LEFT UPPER EXTREMITY INFECTED GRAFT large left upper extremity hematoma 11/04 11/05 Exploration of left upper extremity with evacuation of hematoma Acute blood loss anemia ESRD HTN Hx of seizures History of cardiopulmonary arrest August 2024 at [facility] Contact Information Primary Emergency Contact: BonillaDeshawn Mobile Relation: Brother Technical Coordinator needed? No Secondary Emergency Contact: Edward Ruggiero Mobile Relation: Significant Other Preferred language: Cambodian Technical Coordinator needed? No Candy Denis DO Division of Hospitalist Medicine Acute care [facility] [1] Past Medical History: Diagnosis Date Chronic kidney disease (CKD) Hemodialysis patient (CMS/HCC) (HCC) Wednesday, , Wednesday History of blood transfusion 02/27/2022 Hypertension Seizure (HCC) Developed seizure-like activity on 02/24 during hospital admission [2] amLODIPine, 5 mg, Oral, Daily chlorhexidine, , Topical, Daily collagenase, , Topical, Daily heparin, 5,000 Units, SubCUTAneous, 2 times per day levETIRAcetam, 500 mg, Oral, Daily [Held by provider] sevelamer carbonate, 800 mg, Oral, TID WC sodium chloride 0.9%, 5-40 mL, IntraVENous, 2 times per day sodium chloride 0.9%, 5-40 mL, IntraCATHeter, q8h sulfamethoxazole-trimethoprim, 1 tablet, Oral, Daily [3] PRN medications: acetaminophen OR acetaminophen, acetaminophen, collagenase, heparin, heparin, hydrALAZINE, labetalol, melatonin, morphine sulfate, naloxone, ondansetron ODT OR ondansetron, [Held by provider] oxyCODONE, polyethylene glycol (PEG) 3350, sodium chloride, sodium chloride, sodium chloride, sodium chloride, sodium chloride, sodium chloride, sodium chloride, sodium chloride 0.9%, sodium chloride 0.9% [4] [facility] PROGRESS NOTE Subjective Interval History: Apoorva Gonzalez is being followed for ESRD. On November 05, 2024, Apoorva Gonzalez (: 1950) underwent a surgical procedure at [facility] for evacuation of a left upper extremity hematoma and control of bleeding related to a prior AV graft site. The procedure was performed by Dr. Raffy Fernandez, with Dr. Maria A Khan listed on the case. The patient had a pre- and post-operative diagnosis of bleeding (R58). Intraoperative findings confirmed oozing from the graft site, which was successfully controlled, and the incision was closed. The estimated blood loss was 35 mL, with no drains placed and no complications noted. The patient tolerated the procedure well. A post-transfusion hemoglobin and hematocrit was ordered, and blood products were prepared with appropriate consent, though no transfusion was documented intraoperatively. Prophylactic antibiotics were administered per protocol. The case was clean (Wound Class I), and both surgeons have electronically signed the report. Medications Current Medications[1] Objective Physical Exam Awake, more appropriate Heart is tachycardic, regular Chest is CTA No edema Relevant Results Vital signs in last 24 hours: Temp: [36.1 C (96.9 F)-37.3 C (99.2 F)] 36.7 C (98 F) Heart Rate: [84-104] 85 Resp: [16-20] 16 BP: (131-166)/(79-93) 131/79 Intake/Output this shift: I/O this shift: In: 1044 [I.V.:405; Blood:620; IV Piggyback:19] Out: 35 [Blood:35] Intake/Output last 3 shifts: I/O last 3 completed shifts: In: 250 (5.3 mL/kg) [I.V.:250 (5.3 mL/kg)] Out: - (0 mL/kg) Weight: 47.3 kg Labs: Results from last 7 days Lab Units 11/05/24 1453 11/05/24 0617 11/05/24 0434 WBC AUTO 10*3/uL -- -- 14.6* RBC AUTO 10*6/uL -- -- 2.32* HEMOGLOBIN g/dL 9.4* < > 6.6* HEMATOCRIT % 28.2* < > 20.3* < > = values in this interval not displayed. Results from last 7 days Lab Units 11/05/24 0434 SODIUM mmol/L 138 POTASSIUM mmol/L 3.8 CHLORIDE mmol/L 104 CO2 mmol/L 25 BUN mg/dL 13 CREATININE mg/dL 2.53* CALCIUM mg/dL 7.3* No lab exists for component: FATCASTU Assessment/Plan 1. Bleeding secondary to AV graft site hematoma Patient underwent surgical evacuation of left upper extremity hematoma and hemostasis of prior AV graft site on 11/05/[address] Fernandez and Dr. Khan. No intraoperative complications; blood loss estimated at 35 mL. Wound classified as Class I (clean), no drains placed. Prophylactic antibiotics given within 1 hour of incision. Postoperative course stable so far; patient tolerated procedure well. 2. Anemia secondary to acute blood loss Hemoglobin dropped to 6.6 g/dL pre-op (11/05/24 0434); post-op Hgb improved to 9.4 g/dL (11/05/24 1453) -- likely post-transfusion. Hct improved from 20.3% to 28.2%. Continue to trend H/H. No further transfusions needed at this time, reassess with clinical symptoms or drop in H/H. 3. ESRD on dialysis (assumed background) Hemodialysis schedule and access integrity to be reassessed post-procedure. Monitor for reaccumulation of hematoma or vascular access dysfunction. Plan: Continue monitoring surgical site for bleeding, infection, or hematoma recurrence. Daily CBC to trend hemoglobin and hematocrit. Maintain hemodynamic stability, monitor volume status closely. Coordinate with dialysis team to resume access use when cleared by surgery. No immediate need for additional intervention; patient stable postoperatively.HD TTS , Sean Castaneda MD 11/05/2024 5:33 PM [1] Current Facility-Administered Medications: acetaminophen (Tylenol) tablet 650 mg, 650 mg, Oral, q6h PRN, 650 mg at 11/03/24 0821 OR acetaminophen (Tylenol) suppository 650 mg, 650 mg, Rectal, q6h PRN, Francisco Javier Somers III, MD, 650 mg at 10/27/24 0034 acetaminophen (Tylenol) tablet 650 mg, 650 mg, Oral, q6h PRN, Francisco Javier Somers III, MD, 650 mg at 11/04/242056 amLODIPine (Norvasc) tablet 5 mg, 5 mg, Oral, Daily, Francisco Javier Somers III, MD, 5 mg at 11/04/24820 chlorhexidine (Hibiclens) 4 % solution, , Topical, Daily, Francisco Javier Somers III, MD, Given at 11/04/24 1828 collagenase 250 UNIT/GM ointment, , Topical, PRN, Francisco Javier Somers III, MD collagenase 250 UNIT/GM ointment, , Topical, Daily, Francisco Javier Somers III, MD, Given at 11/04/24 0822 heparin injection 1,200-2,000 Units, 1,200-2,000 Units, IntraCATHeter, PRN, Francisco Javier Somers III, MD, 2,000 Units at 11/04/24 1251 heparin injection 1,200-2,000 Units, 1,200-2,000 Units, IntraCATHeter, PRN, Francisco Javier Somers III, MD, 2,000 Units at 11/04/24 125 heparin injection 5,000 Units, 5,000 Units, SubCUTAneous, 2 times per day, Francisco Javier Somers III, MD, 5,000 Units at 11/04/242054 hydrALAZINE (Apresoline) injection 10 mg, 10 mg, IntraVENous, q4h PRN, Francisco Javier Somers III, MD, 10 mg at 10/31/24 2045 labetalol (Normodyne,Trandate) injection 10 mg, 10 mg, IntraVENous, q4h PRN, Francisco Javier Somers III, MD, 10 mg at 11/04/24 1136 levETIRAcetam (Keppra) tablet 500 mg, 500 mg, Oral, Daily, Francisco Javier Somers III, MD, 500 mg at 11/04/24 0821 melatonin tablet 5 mg, 5 mg, Oral, Nightly PRN, Francisco Javier Somers III, MD, 5 mg at 11/04/24 205 morphine injection 1 mg, 1 mg, IntraVENous, q4h PRN, Candy Denis DO, 1 mg at 11/05/24 0758 naloxone (Narcan) injection 0.4 mg, 0.4 mg, IntraVENous, q5 min PRN, Francisco Javier Somers III, MD ondansetron ODT (Zofran-ODT) disintegrating tablet 4 mg, 4 mg, Oral, q8h PRN OR ondansetron (Zofran) injection 4 mg, 4 mg, IntraVENous, q6h PRN, Francisco Javier Somers III, MD [Held by provider] oxyCODONE (Roxicodone) immediate release tablet 5 mg, 5 mg, Oral, q8h PRN, Francisco Javier Somers III, MD, 5 mg at 11/05/24 0413 polyethylene glycol (PEG) 3350 (Miralax) packet 17 g, 17 g, Oral, Daily PRN, Francisco Javier Somers III, MD, 17 g at 11/04/24 0821 [Held by provider] sevelamer carbonate (Renvela) tablet 800 mg, 800 mg, Oral, TID BALBINA, Kaylin Thomas DO sodium chloride 0.9 % infusion, 5-250 mL/hr, IntraVENous, PRN, Francisco Javier Somers III, MD sodium chloride 0.9 % infusion, 250 mL/hr, IntraVENous, PRN, Francisco Javier Somers III, MD sodium chloride 0.9 % infusion, 250 mL/hr, IntraVENous, PRN, Francisco Javier Somers III, MD sodium chloride 0.9 % infusion, 125 mL/hr, IntraVENous, PRN, Luther Robin MD sodium chloride 0.9 % infusion, 250 mL/hr, IntraVENous, PRN, Candy Denis, DO sodium chloride 0.9 % infusion, 250 mL/hr, IntraVENous, PRN, Romain Meadows, MILLINERY DEPARTMENT MANAGER sodium chloride 0.9 % infusion, 250 mL/hr, IntraVENous, PRN, Raffy Fernandez MD sodium chloride 0.9% (NS) flush 5-40 mL, 5-40 mL, IntraVENous, 2 times per day, Francisco Javier Somers III, MD, 10 mL at 11/04/24 211 sodium chloride 0.9% (NS) flush 5-40 mL, 5-40 mL, IntraVENous, PRN, Francisco Javier Somers III, MD sodium chloride 0.9% (NS) flush 5-40 mL, 5-40 mL, IntraCATHeter, q8h, Francisco Javier Somers III, MD, 10 mL at 11/05/24 0617 sodium chloride 0.9% (NS) flush 5-40 mL, 5-40 mL, IntraVENous, PRN, Francisco Javier Somers III, MD, 10 mL at 10/27/242031 sulfamethoxazole-trimethoprim (Bactrim DS) 800-160 MG per tablet 1 tablet, 1 tablet, Oral, Daily, Francisco Javier Somers III, MD, 1 tablet at 11/04/24 0823 Patient's brother Deshawn updated following surgery via telephone. Discussed with patient's brother and POA Deshawn regarding the overnight events and recommendation for OR for washout, control of bleeding, and closure of wound dehiscence. All questions have been answered to his satisfaction. He has provided consent for us to proceed. Raffy Fernandez MD Vascular Surgery Vascular Surgery Progress Note SUBJECTIVE: overnight team paged for bleeding from left upper extremity, appeared that wound had dehisced. I was paged this a.m. to come evaluate left upper extremity for bleeding. Large hematoma noted on arm, evacuated large clot. Washed out with saline, placed Surgicel, Kerlix, Rosey wrap. Patient denies have any chest pain/dizziness/shortness of breath on examination. Resting in bed, no acute distress. Currently receiving 1 unit PRBCs. ROS: As above unless otherwise noted here OBJECTIVE: Vitals: 11/05/24 0750 BP: 157/93 Pulse: 104 Resp: 20 Temp: 37.2 C (99 F) SpO2: 98% Intake and output: -Reviewed PHYSICAL EXAMINATION: GENERAL: no acute distress HEAD: Normocephalic, Atraumatic EYES: no drainage NECK: Supple, No Jvd PULMONARY: Normal Respiratory Effort, No Respiratory Distress, No Stridor, Chest Non-Tender CARDIO: Regular Rate ABDOMEN: Soft, no tenderness Is Present : Not Examed EXTREMITIES: Skin Warm And Well Perfused, No Cyanosis, Atraumatic MUSCULOSKELETAL: Motor/sensation intact NEURO: No Focal Neuro Defecits, Motor And Sensation Grossly Intact VASCULAR: left upper extremity wound dehiscence with large clot evacuated (see above), previous [place] removed 11/04/2024. Plan to monitor will need Surgicel/4 x 4/Kerlix removed from wound. Artery Left Right Carotid Palpable [] Doppler Signal [] Palpable [] Doppler Signal [] Radial Palpable [x] Doppler Signal [] Palpable [x] Doppler Signal [] Ulnar Palpable [] Doppler Signal [] Palpable [] Doppler Signal [] Femoral Palpable [] Doppler Signal [] Palpable [] Doppler Signal [] Popliteal Palpable [] Doppler Signal [] Palpable [] Doppler Signal [] Dorsalis Pedis Palpable [] Doppler Signal [] Palpable [] Doppler Signal [] Posterior Tibial Palpable [] Doppler Signal [] Palpable [] Doppler Signal [] Lab/imaging: -Reviewed ASSESSMENT: Apoorva Gonzalez is a 74 y.o. female s/p left upper extremity AV graft excision. PLAN: No additional vascular surgery invention at this time Left upper extremity developed dehiscence secondary to large hematoma, evacuated as described above We will plan to remove Surgicel/4x4 and evaluate bleeding later this a.m. Hgb 5.8 this a.m., being transfused 1 unit which was ordered by primary team Culture no growth to date, on Bactrim Hemodialysis T, TH, S Rest of care per primary team Vascular surgery will continue to follow Case to be discussed with Ottoniel Fernandez MD Cosigned by Raffy Fernandez MD at 11/05/2024 10:46 AM EDT Associated attestation - Raffy Fernandez MD - 11/05/2024 10:46 AM EDT I saw and evaluated the patient. I agree with the findings and plan of care as documented in the resident s note unless otherwise noted below. Patient with development of large left upper extremity hematoma overnight in the upper portio of the arm that led to dehiscence of her incision. Evacuated this morning. Small amount of reaccumulation and the incision remains open at this time. Left radial pulse remains palpable. I recommend return to OR for washout, control of bleeding and wound closure. She has received 1 unit PRBC this morning for hgb 5.8 which has just finished transfusing while I was evaluating her. Will discuss with her brother Deshawn. Hospitalist Progress Note 11/05/2024 Subjective: Admit Date: 10/22/2024 PCP: Roxie Spain Room#: W6-591/W6-212 A Interval History: GARMENT ALTERATION EXAMINER PER CYNTHIA LOMBARDI'S NOTE large amount of new bloody drainage from left upper arm. Upon assessment, incision is open and actively bleeding. Arm is firm and incision below in forearm is beginning to ooze. Pressure dressing applied. Patient states that when she was being repositioned in bed she felt a sudden gush of fluid from upper arm. Denies numbness/tingling. Strong radial pulse and good cap refilL D/w with cynthia mason Adult diet Regular 24HR INTAKE/OUTPUT: Intake/Output Summary (Last 24 hours) at 11/05/2024 0658 Last data filed at 11/04/2024 1256 Gross per 24 hour Intake 250 ml Output -- Net 250 ml Past Medical History: Medical History[1] LABS: CBC: Recent Labs 11/04/24 0100 11/04/24 0250 11/05/24 0434 11/05/24 0617 WBC 17.2* 15.5* 14.6* -- RBC 2.35* 2.66* 2.32* -- HGB 6.7* 7.7* 6.6* 5.8* HCT 20.2* 23.0* 20.3* 18.0* MCV 86.0 86.5 87.5 -- RDW 18.3* 18.0* 17.3* -- PLT 394 372 391 -- BMP: Recent Labs 11/03/24 0630 11/04/24 0100 11/05/24 0434 NA 136 139 138 K 3.9 4.0 3.8 CL 103 104 104 CO2 21* 24 25 BUN 16 25* 13 CREATININE 2.68* 3.47* 2.53* GLUCOSE 76* 79* 66* CALCIUM 7.4* 7.2* 7.3* ANIONGAP 12 11 9 LIVER PROFILE:No results for input(s): AST, ALT, BILITOT, ALKPHOS, PROT in the last 72 hours. No lab exists for component: LABALBU PT/INR: No results for input(s): PROTIME, INR in the last 72 hours. CARDIAC ENZYMES: No results for input(s): TROPONINI in the last 72 hours. Procalcitonin: No results found for: PROCAL COVID-19 PCR: No results for input(s): COVID19 in the last 72 hours. Objective: Vitals: BP 157/90 Pulse 97 Temp 37.3 C (99.2 F) (Temporal) Resp 16 Ht 5' 4 (1.626 m) Wt 104 lb 4.4 oz (47.3 kg) Comment: bed scale SpO2 95% BMI 17.90 kg/m Pulse Ox: SpO2 Av.8 % Min: 95 % Max: 100 % Supplemental O2: O2 Flow Rate (L/min): 4 L/min Physical Exam HENT: Head: Normocephalic and atraumatic. Cardiovascular: Rate and Rhythm: Normal rate and regular rhythm. Pulmonary: Effort: Pulmonary effort is normal. No respiratory distress. Abdominal: General: Bowel sounds are normal. Palpations: Abdomen is soft. Musculoskeletal: Comments: LUE dressing saturated with blood Neurological: Mental Status: She is oriented to person, place, and time. Medications: Scheduled PRN Scheduled Meds[2] PRN Meds[3] Continuous Continuous Meds[4] Assessment 74 yo female presented with fever and tachycardia and lethargy to [facility] on 10/22/24. HC POA is partner = Edward and brother Deshawn Recently admitted from 09/13 to 10/12 at [facility] for new onset atrial fibrillation complicated by COVID 19 infection, Enterobacter cloacae, Klebsiella pneumonia, Klebsiella oxytocin and VR Enterococcus which she was treated for complete course. Went into septic shock at that time for increased leukocytosis and C. difficile colitis which was treated.Requiring ICU admission during admission and tunneled HD catheter placed on discharge on 10/12 prior to going to hospital. recent infected hematoma which was I&D at [facility] and treated with antibiotics from 08/14-08/24 in which she went under cardiac arrest which was thought to be due to the right thigh and anterior hip abscess - which was drained and she left with wound vac. Returned on 08/26 for expanding hematoma to the right thigh requiring 2 units of pRBC, and transferred to [facility] for IR emobolization of thigh hematoma, but a decision was made not to perform any intervention and she was discharged to SNF on 09/06. 10/22-10/31 [facility] ICU. Patient did not require vasopressors. October 28 transferred to [facility]. October 31 decided to transfer patient to [facility] for vascular assessment of fistula to see for if the fistula is potentially source of infection. 10/23 Successful uncomplicated ultrasound and fluoroscopically guided left sided central line placement. The catheter is ready for immediate use. 11/01 patient evaluated by vascular surgery. OR for assessment of AV fistula clotted infection on November 02. Infectious diseease recommends Bactrim renally dosed through November 13 Nephrology following for dialysis Palliative care following, CODE STATUS DO NOT RESUSCITATE CCA 11/04 one unit of PRBC transfusion Sepsis infected pressure ulcer on left buttocks secondary to Enterobacter because of a complex 11/02 EXCISION OF LEFT UPPER EXTREMITY INFECTED GRAFT large left upper extremity hematoma 11/04 11/05 vascular sx recommends ecommend return to OR for washout, control of bleeding and wound closure Acute blood loss anemia ESRD HTN Hx of seizures History of cardiopulmonary arrest August 2024 at [facility] Contact Information Primary Emergency Contact: Deshawn Crystal Mobile Relation: Brother Technical Coordinator needed? No Secondary Emergency Contact: Edward Ruggiero Mobile Relation: Significant Other Preferred language: Cambodian Technical Coordinator needed? No Candy Denis DO Division of Hospitalist Medicine [facility] [1] Past Medical History: Diagnosis Date Chronic kidney disease (CKD) Hemodialysis patient (CMS/HCC) (HCC) Wednesday, , Wednesday History of blood transfusion 02/27/2022 Hypertension Seizure (HCC) Developed seizure-like activity on 02/24 during hospital admission [2] amLODIPine, 5 mg, Oral, Daily chlorhexidine, , Topical, Daily collagenase, , Topical, Daily heparin, 5,000 Units, SubCUTAneous, 2 times per day levETIRAcetam, 500 mg, Oral, Daily [Held by provider] sevelamer carbonate, 800 mg, Oral, TID WC sodium chloride 0.9%, 5-40 mL, IntraVENous, 2 times per day sodium chloride 0.9%, 5-40 mL, IntraCATHeter, q8h sulfamethoxazole-trimethoprim, 1 tablet, Oral, Daily [3] PRN medications: acetaminophen OR acetaminophen, acetaminophen, collagenase, heparin, heparin, hydrALAZINE, labetalol, melatonin, naloxone, ondansetron ODT OR ondansetron, oxyCODONE, polyethylene glycol (PEG) 3350, sodium chloride, sodium chloride, sodium chloride, sodium chloride, sodium chloride, sodium chloride, sodium chloride 0.9%, sodium chloride 0.9% [4] [facility] PROGRESS NOTE Subjective Interval History: Apoorva Gonzalez is being followed for ESRD. Left upper extremity AVG has fluid around arterial anastomosis at area of ulceration. This is concerning for ongoing infection and therefore the graft needs to be removed. It is currently thrombosed. s/p EXCISION OF LEFT UPPER EXTREMITY INFECTED GRAFT Left ti drain removed. 2 corie placed. Patient tolerated well. Medications Current Medications[1] Objective Physical Exam Awake, more appropriate Heart is tachycardic, regular Chest is CTA No edema Relevant Results Vital signs in last 24 hours: Temp: [36.9 C (98.4 F)-37.4 C (99.4 F)] 37.1 C (98.7 F) Heart Rate: [83-104] 92 Resp: [18-20] 18 BP: (136-177)/(75-106) 146/75 Intake/Output this shift: I/O this shift: In: 250 [I.V.:250] Out: - Intake/Output last 3 shifts: I/O last 3 completed shifts: In: 278 (5 mL/kg) [Blood:278] Out: - (0 mL/kg) Weight: 55.2 kg Labs: Results from last 7 days Lab Units 11/04/24 0250 WBC AUTO 10*3/uL 15.5* RBC AUTO 10*6/uL 2.66* HEMOGLOBIN g/dL 7.7* HEMATOCRIT % 23.0* Results from last 7 days Lab Units 11/04/24 0100 SODIUM mmol/L 139 POTASSIUM mmol/L 4.0 CHLORIDE mmol/L 104 CO2 mmol/L 24 BUN mg/dL 25* CREATININE mg/dL 3.47* CALCIUM mg/dL 7.2* No lab exists for component: FATCASTU Assessment/Plan Principal Problem: Sepsis, due to unspecified organism, unspecified whether acute organ dysfunction present ([facility]) Active Problems: Seizures (HCC) ESRD (end stage renal disease) ([facility]) Dialysis patient (HCC) ESRD Stable on dialysis Access TDC Normokalemia AVF has clotted, with possible infection , s/p removal -Left ti drain removed. 2 corie placed. Patient tolerated well. Plan HD TTS , Acute anemia, transfusion per primary team Sean Castaneda MD 11/04/2024 3:50 PM [1] Current Facility-Administered Medications: acetaminophen (Tylenol) tablet 650 mg, 650 mg, Oral, q6h PRN, 650 mg at 11/03/24 0821 OR acetaminophen (Tylenol) suppository 650 mg, 650 mg, Rectal, q6h PRN, Francisco Javier Somers III, MD, 650 mg at 10/27/24 0034 acetaminophen (Tylenol) tablet 650 mg, 650 mg, Oral, q6h PRN, Francisco Javier Somers III, MD amLODIPine (Norvasc) tablet 5 mg, 5 mg, Oral, Daily, Francisco Javier Somers III, MD, 5 mg at 11/04/24 0821 chlorhexidine (Hibiclens) 4 % solution, , Topical, Daily, Francisco Javier Somers III, MD, Given at 11/03/24 1323 collagenase 250 UNIT/GM ointment, , Topical, PRN, Francisco Javier Somers III, MD collagenase 250 UNIT/GM ointment, , Topical, Daily, Francisco Javier Somers III, MD, Given at 11/04/24 0822 heparin injection 1,200-2,000 Units, 1,200-2,000 Units, IntraCATHeter, PRN, Francisco Javier Somers III, MD, 2,000 Units at 11/04/24 1251 heparin injection 1,200-2,000 Units, 1,200-2,000 Units, IntraCATHeter, PRN, Francisco Javier Somers III, MD, 2,000 Units at 11/04/24 1251 heparin injection 5,000 Units, 5,000 Units, SubCUTAneous, 2 times per day, Francisco Javier Somers III, MD, 5,000 Units at 11/04/24 0821 hydrALAZINE (Apresoline) injection 10 mg, 10 mg, IntraVENous, q4h PRN, Francisco Javier Somers III, MD, 10 mg at 10/31/24 2045 labetalol (Normodyne,Trandate) injection 10 mg, 10 mg, IntraVENous, q4h PRN, Francisco Javier Somers III, MD, 10 mg at 11/04/24 1136 levETIRAcetam (Keppra) tablet 500 mg, 500 mg, Oral, Daily, Francisco Javier Somers III, MD, 500 mg at 11/04/24820 melatonin tablet 5 mg, 5 mg, Oral, Nightly PRN, Francisco Javier Somers III, MD, 5 mg at 11/01/242009 naloxone (Narcan) injection 0.4 mg, 0.4 mg, IntraVENous, q5 min PRN, Francisco Javier Somers III, MD ondansetron ODT (Zofran-ODT) disintegrating tablet 4 mg, 4 mg, Oral, q8h PRN OR ondansetron (Zofran) injection 4 mg, 4 mg, IntraVENous, q6h PRN, Francisco Javier Somers III, MD oxyCODONE (Roxicodone) immediate release tablet 5 mg, 5 mg, Oral, q8h PRN, Francisco Javier Somers III, MD, 5 mg at 11/04/24 08 polyethylene glycol (PEG) 3350 (Miralax) packet 17 g, 17 g, Oral, Daily PRN, Francisco Javier Somers III, MD, 17 g at 11/04/24 08 [Held by provider] sevelamer carbonate (Renvela) tablet 800 mg, 800 mg, Oral, TID WC, Kaylin Thomas, sodium chloride 0.9 % infusion, 5-250 mL/hr, IntraVENous, PRN, Francisco Javier Somers III, MD sodium chloride 0.9 % infusion, 250 mL/hr, IntraVENous, PRN, Francisco Javier Somers III, MD sodium chloride 0.9 % infusion, 250 mL/hr, IntraVENous, PRN, Francisco Javier Somers III, MD sodium chloride 0.9 % infusion, 125 mL/hr, IntraVENous, PRN, Luther Robin MD sodium chloride 0.9 % infusion, 250 mL/hr, IntraVENous, PRN, Candy Denis DO sodium chloride 0.9% (NS) flush 5-40 mL, 5-40 mL, IntraVENous, 2 times per day, Francisco Javier Somers III, MD, 10 mL at 11/04/2423 sodium chloride 0.9% (NS) flush 5-40 mL, 5-40 mL, IntraVENous, PRN, Francisco Javier Somers III, MD sodium chloride 0.9% (NS) flush 5-40 mL, 5-40 mL, IntraCATHeter, q8h, Francisco Javier Somers III, MD, 10 mL at 11/04/24 0610 sodium chloride 0.9% (NS) flush 5-40 mL, 5-40 mL, IntraVENous, PRN, Francisco Javier Somers III, MD, 10 mL at 10/27/242031 sulfamethoxazole-trimethoprim (Bactrim DS) 800-160 MG per tablet 1 tablet, 1 tablet, Oral, Daily, Francisco Javier Somers III, MD, 1 tablet at 11/04/24 08 Left ti drain removed. 2 corie placed. Patient tolerated well. Vascular Surgery Progress Note SUBJECTIVE: NAEON. Patient alert and oriented to self on exam. Denies of any pain. Resting in bed. Per nursing staff patient did have some drainage from left upper extremity, covered with Kerlix ROS: As above unless otherwise noted here OBJECTIVE: Vitals: 11/03/241942 BP: 142/86 Pulse: 103 Resp: 20 Temp: 37.4 C (99.4 F) SpO2: 100% Intake and output: -Reviewed PHYSICAL EXAMINATION: GENERAL: no acute distress HEAD: Normocephalic, Atraumatic EYES: no drainage NECK: Supple, No Jvd PULMONARY: Normal Respiratory Effort, No Respiratory Distress, No Stridor, Chest Non-Tender CARDIO: Regular Rate ABDOMEN: Soft, no tenderness Is Present : Not Examed EXTREMITIES: Skin Warm And Well Perfused, No Cyanosis, Atraumatic MUSCULOSKELETAL: Motor/sensation intact NEURO: No Focal Neuro Defecits, Motor And Sensation Grossly Intact VASCULAR: left upper extremity with [place] drain in place, old blood draining, old clot expressed, moderate amount of strikethrough, rewrapped with Kerlix. No obvious purulent fluid Artery Left Right Carotid Palpable [] Doppler Signal [] Palpable [] Doppler Signal [] Radial Palpable [x] Doppler Signal [] Palpable [x] Doppler Signal [] Ulnar Palpable [] Doppler Signal [] Palpable [] Doppler Signal [] Femoral Palpable [] Doppler Signal [] Palpable [] Doppler Signal [] Popliteal Palpable [] Doppler Signal [] Palpable [] Doppler Signal [] Dorsalis Pedis Palpable [] Doppler Signal [] Palpable [] Doppler Signal [] Posterior Tibial Palpable [] Doppler Signal [] Palpable [] Doppler Signal [] Lab/imaging: -Reviewed ASSESSMENT: Apoorva Gonzalez is a 74 y.o. female s/p left upper extremity AV graft excision. PLAN: No additional vascular surgery invention at this time Culture no growth to date, on Bactrim Hemodialysis T, TH, S Rest of care per primary team Vascular surgery will continue to follow Case to be discussed with Ottoniel Fernandez MD Cosigned by Raffy Fernandez MD at 11/04/2024 11:16 AM EDT Associated attestation - Raffy Fernandez MD - 11/04/2024 11:16 AM EDT I saw and evaluated the patient. I agree with the findings and plan of care as documented in the resident s note unless otherwise noted below. [place] drain removed from the incision and remained of incision closed with 2 corie. Thin dark fluid evacuated (thin serousanguinous but appears as old blood). The patient tolerated this well. Radial pulse remains palpable. Arm dressed. Will reassess tomorrow. Cultures from surgery remain negative to date. Hospitalist Progress Note 11/04/2024 Subjective: Admit Date: 10/22/2024 PCP: Roxie Spain Room#: [id number]/[id number] A Interval History: On room air. Hypertensive. No fever. Finishing up dialysis medical technologist at bedside In her bed currently D/w with cynthia montague Eating well Adult diet Regular 24HR INTAKE/OUTPUT: Intake/Output Summary (Last 24 hours) at 11/04/2024 0612 Last data filed at 11/03/2024 1320 Gross per 24 hour Intake 278 ml Output -- Net 278 ml Past Medical History: Medical History[1] LABS: CBC: Recent Labs 11/03/24 0630 11/03/24 1430 11/04/24 0100 11/04/24 0250 WBC 19.2* -- 17.2* 15.5* RBC 2.11* -- 2.35* 2.66* HGB 6.1* 8.6* 6.7* 7.7* HCT 18.6* 26.0* 20.2* 23.0* MCV 88.2 -- 86.0 86.5 RDW 18.3* -- 18.3* 18.0* PLT 407 -- 394 372 BMP: Recent Labs 11/02/24 1155 11/03/24 0630 11/04/24 0100 NA 136 136 139 K 5.0 3.9 4.0 CL 105 103 104 CO2 20* 21* 24 BUN 23 16 25* CREATININE 3.99* 2.68* 3.47* GLUCOSE 78* 76* 79* CALCIUM 7.5* 7.4* 7.2* ANIONGAP 11 12 11 LIVER PROFILE:No results for input(s): AST, ALT, BILITOT, ALKPHOS, PROT in the last 72 hours. No lab exists for component: LABALBU PT/INR: Recent Labs 11/01/24 1358 PROTIME 11.8 INR 1.1 CARDIAC ENZYMES: No results for input(s): TROPONINI in the last 72 hours. Procalcitonin: No results found for: PROCAL COVID-19 PCR: No results for input(s): COVID19 in the last 72 hours. Objective: Vitals: BP 142/86 (BP Location: Right arm, Patient Position: Lying) Pulse 103 Temp 37.4 C (99.4 F) (Temporal) Resp 20 Ht 5' 4 (1.626 m) Wt 121 lb 11.2 oz (55.2 kg) SpO2 100% BMI 20.89 kg/m Pulse Ox: SpO2 Av % Min: 96 % Max: 100 % Supplemental O2: O2 Flow Rate (L/min): 4 L/min Physical Exam HENT: Head: Normocephalic and atraumatic. Cardiovascular: Rate and Rhythm: Normal rate and regular rhythm. Pulmonary: Effort: Pulmonary effort is normal. No respiratory distress. Abdominal: General: Bowel sounds are normal. Palpations: Abdomen is soft. Musculoskeletal: Comments: LUE dressing noted C/D/I Neurological: Mental Status: She is oriented to person, place, and time. Medications: Scheduled PRN Scheduled Meds[2] PRN Meds[3] Continuous Continuous Meds[4] Assessment 74 yo female presented with fever and tachycardia and lethargy to [facility] on 10/22/24. HC POA is partner = Edward and brother Deshawn Recently admitted from 09/13 to 10/12 at [facility] for new onset atrial fibrillation complicated by COVID 19 infection, Enterobacter cloacae, Klebsiella pneumonia, Klebsiella oxytocin and VR Enterococcus which she was treated for complete course. Went into septic shock at that time for increased leukocytosis and C. difficile colitis which was treated.Requiring ICU admission during admission and tunneled HD catheter placed on discharge on 10/12 prior to going to hospital. recent infected hematoma which was I&D at [facility] and treated with antibiotics from 08/14-08/24 in which she went under cardiac arrest which was thought to be due to the right thigh and anterior hip abscess - which was drained and she left with wound vac. Returned on 08/26 for expanding hematoma to the right thigh requiring 2 units of pRBC, and transferred to [facility] for IR emobolization of thigh hematoma, but a decision was made not to perform any intervention and she was discharged to SNF on 09/06. 10/22-10/31 [facility] ICU. Patient did not require vasopressors. October 28 transferred to [facility]. October 31 decided to transfer patient to [facility] for vascular assessment of fistula to see for if the fistula is potentially source of infection. 10/23 Successful uncomplicated ultrasound and fluoroscopically guided left sided central line placement. The catheter is ready for immediate use. 11/01 patient evaluated by vascular surgery. OR for assessment of AV fistula clotted infection on November 02. Infectious diseease recommends Bactrim renally dosed through November 13 Nephrology following for dialysis Palliative care following, CODE STATUS DO NOT RESUSCITATE CCA 11/02 one unit of PRBC transfusion Sepsis infected pressure ulcer on left buttocks secondary to Enterobacter because of a complex 11/02 EXCISION OF LEFT UPPER EXTREMITY INFECTED GRAFT ESRD HTN Hx of seizures History of cardiopulmonary arrest August 2024 at [facility] Continue [facility] Extended Emergency Contact Information Primary Emergency Contact: Deshawn Crystal Mobile Relation: Brother Technical Coordinator needed? No Secondary Emergency Contact: Edward Ruggiero Mobile Relation: Significant Other Preferred language: Cambodian Technical Coordinator needed? No Candy Denis DO Division of Hospitalist Medicine Acute care [facility] [1] Past Medical History: Diagnosis Date Chronic kidney disease (CKD) Hemodialysis patient (CMS/HCC) (HCC) Wednesday, , Wednesday History of blood transfusion 02/27/2022 Hypertension Seizure (HCC) Developed seizure-like activity on 02/24 during hospital admission [2] amLODIPine, 5 mg, Oral, Daily chlorhexidine, , Topical, Daily collagenase, , Topical, Daily heparin, 5,000 Units, SubCUTAneous, 2 times per day levETIRAcetam, 500 mg, Oral, Daily [Held by provider] sevelamer carbonate, 800 mg, Oral, TID WC sodium chloride 0.9%, 5-40 mL, IntraVENous, 2 times per day sodium chloride 0.9%, 5-40 mL, IntraCATHeter, q8h sulfamethoxazole-trimethoprim, 1 tablet, Oral, Daily [3] PRN medications: acetaminophen OR acetaminophen, acetaminophen, collagenase, dextrose, dextrose, glucagon (rDNA), glucose, heparin, heparin, hydrALAZINE, labetalol, melatonin, naloxone, ondansetron ODT OR ondansetron, oxyCODONE, polyethylene glycol (PEG) 3350, sodium chloride, sodium chloride, sodium chloride, sodium chloride, sodium chloride, sodium chloride 0.9%, sodium chloride 0.9% [4] [facility] PROGRESS NOTE Subjective Interval History: Apoorva Gonzalez is being followed for ESRD. Transferred yes to be evaluated by vascular surgery Left upper extremity AVG has fluid around arterial anastomosis at area of ulceration. This is concerning for ongoing infection and therefore the graft needs to be removed. It is currently thrombosed. s/p EXCISION OF LEFT UPPER EXTREMITY INFECTED GRAFT Medications Current Medications[1] Objective Physical Exam Awake, more appropriate Heart is tachycardic, regular Chest is CTA No edema Relevant Results Vital signs in last 24 hours: Temp: [36.6 C (97.9 F)-37.4 C (99.4 F)] 36.6 C (97.9 F) Heart Rate: [94-118] 94 Resp: [16-18] 17 BP: (116-141)/(63-83) 129/74 Intake/Output this shift: I/O this shift: In: 278 [Blood:278] Out: - Intake/Output last 3 shifts: I/O last 3 completed shifts: In: 1836.6 (33.4 mL/kg) [P.O.:240; I.V.:837.1 (15.2 mL/kg); Blood:647.5; IV Piggyback:112] Out: 350 (6.4 mL/kg) [Blood:350] Weight: 54.9 kg Labs: Results from last 7 days Lab Units 11/03/24 1430 11/03/24 0630 WBC AUTO 10*3/uL -- 19.2* RBC AUTO 10*6/uL -- 2.11* HEMOGLOBIN g/dL 8.6* 6.1* HEMATOCRIT % 26.0* 18.6* Results from last 7 days Lab Units 11/03/24 0630 SODIUM mmol/L 136 POTASSIUM mmol/L 3.9 CHLORIDE mmol/L 103 CO2 mmol/L 21* BUN mg/dL 16 CREATININE mg/dL 2.68* CALCIUM mg/dL 7.4* No lab exists for component: FATCASTU Assessment/Plan Principal Problem: Sepsis, due to unspecified organism, unspecified whether acute organ dysfunction present ([facility]) Active Problems: Seizures (HCC) ESRD (end stage renal disease) (HCC) Dialysis patient (HCC) ESRD Stable on dialysis Access TDC Normokalemia AVF has clotted, with possible infection , s/p removal Plan HD TTS , Acute anemia, transfusion per primary team Pipe Soto MD 11/03/2024 5:57 PM [1] Current Facility-Administered Medications: acetaminophen (Tylenol) tablet 650 mg, 650 mg, Oral, q6h PRN, 650 mg at 11/03/24 0821 OR acetaminophen (Tylenol) suppository 650 mg, 650 mg, Rectal, q6h PRN, Francisco Javier Somers III, MD, 650 mg at 10/27/24 0034 acetaminophen (Tylenol) tablet 650 mg, 650 mg, Oral, q6h PRN, Francisco Javier Somers III, MD amLODIPine (Norvasc) tablet 5 mg, 5 mg, Oral, Daily, Francisco Javier Somers III, MD, 5 mg at 11/03/24 08 chlorhexidine (Hibiclens) 4 % solution, , Topical, Daily, Francisco Javier Somers III, MD, Given at 11/03/24 1323 collagenase 250 UNIT/GM ointment, , Topical, PRN, Francisco Javier Somers III, MD collagenase 250 UNIT/GM ointment, , Topical, Daily, Francisco Javier Somers III, MD, Given at 11/03/24 0823 dextrose 5 % infusion, 100 mL/hr, IntraVENous, PRN, Francisco Javier Somers III, MD dextrose 50 % solution 12.5 g, 12.5 g, IntraVENous, PRN, Francisco Javier Somers III, MD, 12.5 g at 10/24/24 0654 glucagon (human recombinant) injection 1 mg, 1 mg, IntraMUSCular, PRN, Francisco Javier Somers III, MD glucose oral gel 15 g, 15 g, Oral, PRN, Francisco Javier Somers III, MD, 15 g at 10/30/24 0451 heparin injection 1,200-2,000 Units, 1,200-2,000 Units, IntraCATHeter, PRN, Francisco Javier Somers III, MD, 2,000 Units at 11/02/24 1835 heparin injection 1,200-2,000 Units, 1,200-2,000 Units, IntraCATHeter, PRN, Francisco Javier Somers III, MD, 2,100 Units at 11/02/24 1835 heparin injection 5,000 Units, 5,000 Units, SubCUTAneous, 2 times per day, Francisco Javier Somers III, MD, 5,000 Units at 11/03/24 0821 hydrALAZINE (Apresoline) injection 10 mg, 10 mg, IntraVENous, q4h PRN, Francisco Javier Somers III, MD, 10 mg at 10/31/242044 labetalol (Normodyne,Trandate) injection 10 mg, 10 mg, IntraVENous, q4h PRN, Francisco Javier Somers III, MD, 10 mg at 10/30/242053 levETIRAcetam (Keppra) tablet 500 mg, 500 mg, Oral, Daily, Francisco Javier Somers III, MD, 500 mg at 11/03/24821 melatonin tablet 5 mg, 5 mg, Oral, Nightly PRN, Francisco Javier Somers III, MD, 5 mg at 11/01/242009 naloxone (Narcan) injection 0.4 mg, 0.4 mg, IntraVENous, q5 min PRN, Francisco Javier Somers III, MD ondansetron ODT (Zofran-ODT) disintegrating tablet 4 mg, 4 mg, Oral, q8h PRN OR ondansetron (Zofran) injection 4 mg, 4 mg, IntraVENous, q6h PRN, Francisco Javier Somers III, MD oxyCODONE (Roxicodone) immediate release tablet 5 mg, 5 mg, Oral, q8h PRN, Francisco Javier Somers III, MD, 5 mg at 11/03/24 1422 polyethylene glycol (PEG) 3350 (Miralax) packet 17 g, 17 g, Oral, Daily PRN, Francisco Javier Somers III, MD [Held by provider] sevelamer carbonate (Renvela) tablet 800 mg, 800 mg, Oral, TID WC, Kaylin Thomas, sodium chloride 0.9 % infusion, 5-250 mL/hr, IntraVENous, PRN, Francisco Javier Somers III, MD sodium chloride 0.9 % infusion, 250 mL/hr, IntraVENous, PRN, Francisco Javier Somers III, MD sodium chloride 0.9 % infusion, 250 mL/hr, IntraVENous, PRN, Francisco Javier Somers III, MD sodium chloride 0.9 % infusion, 125 mL/hr, IntraVENous, PRN, Luther Robin MD sodium chloride 0.9 % infusion, 250 mL/hr, IntraVENous, PRN, Candy Denis, sodium chloride 0.9% (NS) flush 5-40 mL, 5-40 mL, IntraVENous, 2 times per day, Francisco Javier Somers III, MD, 10 mL at 11/03/24 0823 sodium chloride 0.9% (NS) flush 5-40 mL, 5-40 mL, IntraVENous, PRN, Francisco Javier Somers III, MD sodium chloride 0.9% (NS) flush 5-40 mL, 5-40 mL, IntraCATHeter, q8h, Francisco Javier Somers III, MD, 10 mL at 11/03/24 1323 sodium chloride 0.9% (NS) flush 5-40 mL, 5-40 mL, IntraVENous, PRN, Francisco Javier Somers III, MD, 10 mL at 10/27/24 2032 sulfamethoxazole-trimethoprim (Bactrim DS) 800-160 MG per tablet 1 tablet, 1 tablet, Oral, Daily, Francisco Javier Somers III, MD, 1 tablet at 11/03/24 0821 Vascular Surgery Progress Note SUBJECTIVE: NAEON. Mentation unchanged. Underwent hemodialysis after procedure. Pain is controlled with current regimen. Denies: nausea/emesis/fevers/chills/CP/SO B/new numbness/paresthesias. ROS: As above unless otherwise noted here OBJECTIVE: Vitals: 11/02/241956 BP: 128/76 Pulse: 115 Resp: 18 Temp: 37.4 C (99.4 F) SpO2: 97% Intake and output: -Reviewed PHYSICAL EXAMINATION: GENERAL: no acute distress HEAD: Normocephalic, Atraumatic EYES: no drainage NECK: Supple, No Jvd PULMONARY: Normal Respiratory Effort, No Respiratory Distress, No Stridor, Chest Non-Tender CARDIO: Regular Rate ABDOMEN: Soft, no tenderness Is Present : Not Examed EXTREMITIES: Skin Warm And Well Perfused, No Cyanosis, Atraumatic MUSCULOSKELETAL: Motor/sensation intact NEURO: No Focal Neuro Defecits, Motor And Sensation Grossly Intact VASCULAR: Left lower extremity wound covered with Kerlix and Rosey wrap Artery Left Right Carotid Palpable [] Doppler Signal [] Palpable [] Doppler Signal [] Radial Palpable [x] Doppler Signal [] Palpable [x] Doppler Signal [] Ulnar Palpable [] Doppler Signal [] Palpable [] Doppler Signal [] Femoral Palpable [] Doppler Signal [] Palpable [] Doppler Signal [] Popliteal Palpable [] Doppler Signal [] Palpable [] Doppler Signal [] Dorsalis Pedis Palpable [] Doppler Signal [] Palpable [] Doppler Signal [] Posterior Tibial Palpable [] Doppler Signal [] Palpable [] Doppler Signal [] Lab/imaging: -Reviewed ASSESSMENT: Apoorva Gonzalez is a 74 y.o. female s/p left upper extremity AV graft excision. PLAN: No acute vascular surgery invention at this time Hemodialysis T, TH, S Rest of care per primary team Vascular surgery will continue to follow Case to be discussed with Ottoniel Fernandez MD Cosigned by Raffy Fernandez MD at 11/03/2024 12:27 PM EDT Associated attestation - Raffy Fernandez MD - 11/03/2024 12:27 PM EDT I saw and evaluated the patient. I agree with the findings and plan of care as documented in the resident s note unless otherwise noted below. Dressing taken down bedside. No active bleeding. Expressible old blood from the superior aspect of the incision. The Nu-Knit was removed. Will remove drain tomorrow. No swelling present. Left radial pulse palpable. Motion and sensation are intact. Hospitalist Progress Note 11/03/2024 Subjective: Admit Date: 10/22/2024 PCP: Roxie Spain Room#: [id number]/[id number] A Interval History: On room air. Hypertensive. No fever. Unable to obtain review of system. Sitting in the recliner Adult diet Regular 24HR INTAKE/OUTPUT: Intake/Output Summary (Last 24 hours) at 11/03/2024 06 Last data filed at 11/02/2024 1846 Gross per 24 hour Intake 1596.6 ml Output 350 ml Net 1246.6 ml Past Medical History: Medical History[1] LABS: CBC: Recent Labs 11/01/2431611/02/24 02411/02/24 1155 11/02/24 1655 WBC 20.4* 21.9* -- -- RBC 2.75* 2.48* -- -- HGB 8.0* 7.4* 6.3* 8.0* HCT 25.2* 22.9* 20.0* 24.1* MCV 91.6 92.3 -- -- RDW 16.6* 16.3* -- -- PLT 557* 530* -- -- BMP: Recent Labs 11/01/2431611/02/24 0241 11/02/24 1155 NA 139 138 136 K 4.6 4.8 5.0 CL 104 105 105 CO2 22* 21* 20* BUN 14 20 23 CREATININE 2.98* 4.11* 3.99* GLUCOSE 67* 64* 78* CALCIUM 7.7* 7.7* 7.5* ANIONGAP 13 12 11 LIVER PROFILE:No results for input(s): AST, ALT, BILITOT, ALKPHOS, PROT in the last 72 hours. No lab exists for component: LABALBU PT/INR: Recent Labs 11/01/24 1358 PROTIME 11.8 INR 1.1 CARDIAC ENZYMES: No results for input(s): TROPONINI in the last 72 hours. Procalcitonin: No results found for: PROCAL COVID-19 PCR: No results for input(s): COVID19 in the last 72 hours. Objective: Vitals: BP 128/76 (BP Location: Right arm, Patient Position: Lying) Pulse 115 Temp 37.4 C (99.4 F) (Temporal) Resp 18 Ht 5' 4 (1.626 m) Wt 121 lb 1.6 oz (54.9 kg) SpO2 97% BMI 20.79 kg/m Pulse Ox: SpO2 Av.8 % Min: 95 % Max: 100 % Supplemental O2: O2 Flow Rate (L/min): 4 L/min Physical Exam HENT: Head: Normocephalic and atraumatic. Cardiovascular: Rate and Rhythm: Normal rate and regular rhythm. Pulmonary: Effort: Pulmonary effort is normal. No respiratory distress. Abdominal: General: Bowel sounds are normal. Palpations: Abdomen is soft. Neurological: Mental Status: She is disoriented. Medications: Scheduled PRN Scheduled Meds[2] PRN Meds[3] Continuous Continuous Meds[4] Assessment 74 yo female presented with fever and tachycardia and lethargy to [facility] on 10/22/24. HC POA is partner = Edward and brother Deshawn Recently admitted from 09/13 to 10/12 at [facility] for new onset atrial fibrillation complicated by COVID 19 infection, Enterobacter cloacae, Klebsiella pneumonia, Klebsiella oxytocin and VR Enterococcus which she was treated for complete course. Went into septic shock at that time for increased leukocytosis and C. difficile colitis which was treated.Requiring ICU admission during admission and tunneled HD catheter placed on discharge on 10/12 prior to going to hospital. recent infected hematoma which was I&D at [facility] and treated with antibiotics from 08/14-08/24 in which she went under cardiac arrest which was thought to be due to the right thigh and anterior hip abscess - which was drained and she left with wound vac. Returned on 08/26 for expanding hematoma to the right thigh requiring 2 units of pRBC, and transferred to [facility] for IR emobolization of thigh hematoma, but a decision was made not to perform any intervention and she was discharged to SNF on 09/06. 10/22-10/31 [facility] ICU. Patient did not require vasopressors. October 28 transferred to [facility]. October 31 decided to transfer patient to [facility] for vascular assessment of fistula to see for if the fistula is potentially source of infection. 10/23 Successful uncomplicated ultrasound and fluoroscopically guided left sided central line placement. The catheter is ready for immediate use. 11/01 patient evaluated by vascular surgery. OR for assessment of AV fistula clotted infection on November 02. Infectious diseease recommends Bactrim renally dosed through November 13 Nephrology following for dialysis Palliative care following, CODE STATUS DO NOT RESUSCITATE CCA 11/02 one unit of PRBC transfusion Sepsis infected pressure ulcer on left buttocks secondary to Enterobacter because of a complex 11/02 EXCISION OF LEFT UPPER EXTREMITY INFECTED GRAFT ESRD HTN Hx of seizures History of cardiopulmonary arrest August 2024 at [facility] Contact Information Primary Emergency Contact: BonillaDeshawn Mobile Relation: Brother Technical Coordinator needed? No Secondary Emergency Contact: Edward Ruggiero Mobile Relation: Significant Other Preferred language: Cambodian Technical Coordinator needed? No Candy Denis DO Division of Hospitalist Medicine Acute care [facility] [1] Past Medical History: Diagnosis Date Chronic kidney disease (CKD) Hemodialysis patient (CMS/HCC) (HCC) Wednesday, , Wednesday History of blood transfusion 02/27/2022 Hypertension Seizure (HCC) Developed seizure-like activity on 02/24 during hospital admission [2] amLODIPine, 5 mg, Oral, Daily chlorhexidine, , Topical, Daily collagenase, , Topical, Daily heparin, 5,000 Units, SubCUTAneous, 2 times per day levETIRAcetam, 500 mg, Oral, Daily [Held by provider] sevelamer carbonate, 800 mg, Oral, TID WC sodium chloride 0.9%, 5-40 mL, IntraVENous, 2 times per day sodium chloride 0.9%, 5-40 mL, IntraCATHeter, q8h sulfamethoxazole-trimethoprim, 1 tablet, Oral, Daily [3] PRN medications: acetaminophen OR acetaminophen, acetaminophen, collagenase, dextrose, dextrose, glucagon (rDNA), glucose, heparin, heparin, hydrALAZINE, labetalol, melatonin, naloxone, ondansetron ODT OR ondansetron, oxyCODONE, polyethylene glycol (PEG) 3350, sodium chloride, sodium chloride, sodium chloride, sodium chloride, sodium chloride 0.9%, sodium chloride 0.9% [4] [facility] PROGRESS NOTE Subjective Interval History: Apoorva Gonzalez is being followed for ESRD. Transferred yes to be evaluated by vascular surgery Left upper extremity AVG has fluid around arterial anastomosis at area of ulceration. This is concerning for ongoing infection and therefore the graft needs to be removed. It is currently thrombosed. s/p EXCISION OF LEFT UPPER EXTREMITY INFECTED GRAFT Getting HD now Medications Current Medications[1] Objective Physical Exam Awake, more appropriate Heart is tachycardic, regular Chest is CTA No edema Relevant Results Vital signs in last 24 hours: Temp: [36.3 C (97.4 F)-37.6 C (99.6 F)] 37.5 C (99.5 F) Heart Rate: [102-120] 120 Resp: [16-29] 18 BP: (91-174)/(45-96) 122/75 Intake/Output this shift: I/O this shift: In: 934.1 [I.V.:537.1; Blood:285; IV Piggyback:112] Out: 350 [Blood:350] Intake/Output last 3 shifts: I/O last 3 completed shifts: In: 484.1 (9.1 mL/kg) [P.O.:480; I.V.:4.1 (0.1 mL/kg)] Out: - (0 mL/kg) Weight: 53.2 kg Labs: Results from last 7 days Lab Units 11/02/24 1155 11/02/24 0241 WBC AUTO 10*3/uL -- 21.9* RBC AUTO 10*6/uL -- 2.48* HEMOGLOBIN g/dL 6.3* 7.4* HEMATOCRIT % 20.0* 22.9* Results from last 7 days Lab Units 11/02/24 1155 SODIUM mmol/L 136 POTASSIUM mmol/L 5.0 CHLORIDE mmol/L 105 CO2 mmol/L 20* BUN mg/dL 23 CREATININE mg/dL 3.99* CALCIUM mg/dL 7.5* No lab exists for component: FATCASTU Assessment/Plan Principal Problem: Sepsis, due to unspecified organism, unspecified whether acute organ dysfunction present (HCC) Active Problems: Seizures (HCC) ESRD (end stage renal disease) (HCC) Dialysis patient (HCC) ESRD Stable on dialysis Access TDC Normokalemia AVF has clotted, with possible infection , s/p removal Plan HD today, and then on Wednesday Acute anemia, transfusion per primary team Pipe Soto MD 11/02/2024 4:53 PM [1] Current Facility-Administered Medications: acetaminophen (Tylenol) tablet 650 mg, 650 mg, Oral, q6h PRN, 650 mg at 11/01/24 1505 OR acetaminophen (Tylenol) suppository 650 mg, 650 mg, Rectal, q6h PRN, Francisco Javier Somers III, MD, 650 mg at 10/27/24 0034 acetaminophen (Tylenol) tablet 650 mg, 650 mg, Oral, q6h PRN, Francisco Javier Somers III, MD amLODIPine (Norvasc) tablet 5 mg, 5 mg, Oral, Daily, Francisco Javier Somers III, MD, 5 mg at 11/01/24 0810 chlorhexidine (Hibiclens) 4 % solution, , Topical, Daily, Francisco Javier Somers III, MD, Given at 11/02/24 1457 collagenase 250 UNIT/GM ointment, , Topical, PRN, Francisco Javier Somers III, MD collagenase 250 UNIT/GM ointment, , Topical, Daily, Francisco Javier Somers III, MD, Given at 11/02/24 1458 dextrose 5 % infusion, 100 mL/hr, IntraVENous, PRN, Francisco Javier Somers III, MD dextrose 50 % solution 12.5 g, 12.5 g, IntraVENous, PRN, Francisco Javier Somers III, MD, 12.5 g at 10/24/24 0654 glucagon (human recombinant) injection 1 mg, 1 mg, IntraMUSCular, PRN, Francisco Javier Somers III, MD glucose oral gel 15 g, 15 g, Oral, PRN, Francisco Javier Somers III, MD, 15 g at 10/30/24 0451 heparin injection 1,200-2,000 Units, 1,200-2,000 Units, IntraCATHeter, PRN, Francisco Javier Somers III, MD, 2,000 Units at 10/31/24 1440 heparin injection 1,200-2,000 Units, 1,200-2,000 Units, IntraCATHeter, PRN, Francisco Javier Somers III, MD, 2,100 Units at 10/31/24 1440 heparin injection 5,000 Units, 5,000 Units, SubCUTAneous, 2 times per day, Francisco Javier Somers III, MD, 5,000 Units at 11/01/242009 hydrALAZINE (Apresoline) injection 10 mg, 10 mg, IntraVENous, q4h PRN, Francisco Javier Somers III, MD, 10 mg at 10/31/242044 labetalol (Normodyne,Trandate) injection 10 mg, 10 mg, IntraVENous, q4h PRN, Francisco Javier Somers III, MD, 10 mg at 10/30/242053 levETIRAcetam (Keppra) tablet 500 mg, 500 mg, Oral, Daily, Francisco Javier Somers III, MD, 500 mg at 11/02/24 1458 melatonin tablet 5 mg, 5 mg, Oral, Nightly PRN, Francisco Javier Somers III, MD, 5 mg at 11/01/242009 naloxone (Narcan) injection 0.4 mg, 0.4 mg, IntraVENous, q5 min PRN, Francisco Javier Somers III, MD ondansetron ODT (Zofran-ODT) disintegrating tablet 4 mg, 4 mg, Oral, q8h PRN OR ondansetron (Zofran) injection 4 mg, 4 mg, IntraVENous, q6h PRN, Francisco Javier Somers III, MD oxyCODONE (Roxicodone) immediate release tablet 5 mg, 5 mg, Oral, q8h PRN, Francisco Javier Somers III, MD, 5 mg at 11/01/24 1705 polyethylene glycol (PEG) 3350 (Miralax) packet 17 g, 17 g, Oral, Daily PRN, Francisco Javier Somers III, MD [Held by provider] sevelamer carbonate (Renvela) tablet 800 mg, 800 mg, Oral, TID WC, Kaylin Thomas DO sodium chloride 0.9 % infusion, 5-250 mL/hr, IntraVENous, PRN, Francisco Javier Somers III, MD sodium chloride 0.9 % infusion, 250 mL/hr, IntraVENous, PRN, Francisco Javier Somers III, MD sodium chloride 0.9 % infusion, 250 mL/hr, IntraVENous, PRN, Francisco Javier Somers III, MD sodium chloride 0.9 % infusion, 125 mL/hr, IntraVENous, PRN, Luther Robin MD sodium chloride 0.9% (NS) flush 5-40 mL, 5-40 mL, IntraVENous, 2 times per day, Francisco Javier Somers III, MD, 10 mL at 11/01/242010 sodium chloride 0.9% (NS) flush 5-40 mL, 5-40 mL, IntraVENous, PRN, Francisco Javier Somers III, MD sodium chloride 0.9% (NS) flush 5-40 mL, 5-40 mL, IntraCATHeter, q8h, Francisco Javier Somers III, MD, 10 mL at 11/02/24 145 sodium chloride 0.9% (NS) flush 5-40 mL, 5-40 mL, IntraVENous, PRN, Francisco Javier Somers III, MD, 10 mL at 10/27/242031 sulfamethoxazole-trimethoprim (Bactrim DS) 800-160 MG per tablet 1 tablet, 1 tablet, Oral, Daily, Francisco Javier Somers III, MD, 1 tablet at 11/02/24 1459 Vascular Surgery Progress Note SUBJECTIVE: The patient is resting comfortably in bed this morning. She denies fevers and chills. She denies left arm pain at rest. IMPRESSION: 74 yo female with infected left upper extremity AVG RECOMMENDATIONS: Plan for explant of infected AVG today. The patient has expressed understanding of the procedure. It was also discussed with her brother/HCPASTRID Hess. They have both elected to proceed with the surgery as discussed. Medical History[1] Surgical History[2] Current Medications: Continuous Meds[3] PRN Meds[4] Scheduled Meds[5] Allergies: Patient has no known allergies. Social History Socioeconomic History Marital status: Spouse name: Not on file Number of children: Not on file Years of education: Not on file Highest education level: Not on file Occupational History Not on file Tobacco Use Smoking status: Never Smokeless tobacco: Never Vaping Use Vaping status: Never Used Substance and Sexual Activity Alcohol use: Yes Alcohol/week: 2.0 standard drinks of alcohol Types: 2 Glasses of wine per week Comment: weekly Drug use: Never Sexual activity: Not on file Other Topics Concern Not on file Social History Narrative Not on file Social Drivers of Health Financial Resource Strain: Patient Unable To Answer (10/23/2024) Overall Financial Resource Strain (CARDIA) Difficulty of Paying Living Expenses: Patient unable to answer Food Insecurity: No Food Insecurity (10/31/2024) Hunger Vital Sign Worried About Running Out of Food in the Last Year: Never true Ran Out of Food in the Last Year: Never true Transportation Needs: No Transportation Needs (10/31/2024) PRAPARE - Transportation Lack of Transportation (Medical): No Lack of Transportation (Non-Medical): No Physical Activity: Not on file Stress: Not on file Social Connections: Not on file Intimate Partner Violence: Not At Risk (10/31/2024) Humiliation, Afraid, Rape, and Kick questionnaire Fear of Current or Ex-Partner: No Emotionally Abused: No Physically Abused: No Sexually Abused: No Housing Stability: Low Risk (10/31/2024) Housing Stability Vital Sign Unable to Pay for Housing in the Last Year: No Number of Times Moved in the Last Year: 0 Homeless in the Last Year: No Family History[6] REVIEW OF SYSTEMS: The chart was reviewed. Review of Systems LABS: Lab Results Component Value Date CREATININE 4.11 (H) 11/02/2024 Lab Results Component Value Date WBC 21.9 (H) 11/02/2024 HGB 7.4 (L) 11/02/2024 HCT 22.9 (L) 11/02/2024 MCV 92.3 11/02/2024 PLT 530 (H) 11/02/2024 Lab Results Component Value Date INR 1.1 11/01/2024 INR 1.0 10/09/2024 INR 1.2 (H) 09/17/2024 PROTIME 11.8 11/01/2024 PROTIME 11.1 10/09/2024 PROTIME 12.3 (H) 09/17/2024 No results found for: VLDL PHYSICAL EXAM: Vitals: 11/01/242023 BP: 159/92 Pulse: 114 Resp: 16 Temp: 37.4 C (99.3 F) SpO2: 97% PHYSICAL EXAM: CONSTITUTIONAL: awake, alert, cooperative, no apparent distress, and appears stated age EYES: Perrla, Eomi ENT: normocepalic, without obvious abnormality, atraumatic NECK: supple, symmetrical, trachea midline, no jugular venous distension, no masses LUNGS: no increased work of breathing, good air exchange and clear to auscultation CARDIOVASCULAR: regular rate and rhythm ABDOMEN: soft, non-distended, non-tender, Aorta not palpated SKIN: no lesions EXTREMITIES: Left upper extremity AVG without thrill or bruit. There is an ulceration present near the arterial anastomosis with some purulent drainage. LABS: Lab Results Component Value Date WBC 21.9 (H) 11/02/2024 HGB 7.4 (L) 11/02/2024 HCT 22.9 (L) 11/02/2024 PLT 530 (H) 11/02/2024 PROTIME 11.8 11/01/2024 INR 1.1 11/01/2024 K 4.8 11/02/2024 BUN 20 11/02/2024 CREATININE 4.11 (H) 11/02/2024 VASCULAR TESTING: HD access duplex performed 1950: AV graft of the left upper extremity. Occluded at the proximal segment, mid segment and distal segment. Complex perigraft fluid collection identified adjacent to the distal graft, near the brachial artery anastomosis. Raffy Fernandez MD Vascular Surgery [1] Past Medical History: Diagnosis Date Chronic kidney disease (CKD) Hemodialysis patient ([facility]) ([facility]) Wednesday, , Wednesday History of blood transfusion 02/27/2022 Hypertension Seizure (HCC) Developed seizure-like activity on 02/24 during hospital admission [2] Past Surgical History: Procedure Laterality Date AV FISTULA PLACEMENT Left 08/07/2022 COLONOSCOPY N/A 01/25/2024 Performed by Chrissy Gilman MD at [facility] ENDOSCOPY IR CVC TUNNELED DIALYSIS CATHETER PLACEMENT 02/27/2022 IR CVC TUNNELED CATHETER PLACEMENT 02/27/2022 Candis Andrade MD [facility] SPECIAL PROCEDURES IR EMBOLIZATION 01/24/2024 IR EMBOLIZATION 01/24/2024 Jovan Glynn MD [facility] SPECIAL PROCEDURES [3] lactated Ringer's, 125 mL/hr [4] PRN medications: [Transfer Hold] acetaminophen OR [Transfer Hold] acetaminophen, [Transfer Hold] acetaminophen, [Transfer Hold] collagenase, [Transfer Hold] dextrose, [Transfer Hold] dextrose, diphenhydrAMINE, [Transfer Hold] glucagon (rDNA), [Transfer Hold] glucose, [Transfer Hold] heparin, [Transfer Hold] heparin, [Transfer Hold] hydrALAZINE, labetalol OR hydrALAZINE, [Transfer Hold] labetalol, LORazepam, [Transfer Hold] melatonin, [Transfer Hold] naloxone, [Transfer Hold] ondansetron ODT OR [Transfer Hold] ondansetron, ondansetron, [Transfer Hold] oxyCODONE, [Transfer Hold] polyethylene glycol (PEG) 3350, sodium chloride, [Transfer Hold] sodium chloride, [Transfer Hold] sodium chloride, [Transfer Hold] sodium chloride, sodium chloride, sodium chloride 0.9%, [Transfer Hold] sodium chloride 0.9%, [Transfer Hold] sodium chloride 0.9% [5] [Transfer Hold] amLODIPine, 5 mg, Oral, Daily [Transfer Hold] chlorhexidine, , Topical, Daily [Transfer Hold] collagenase, , Topical, Daily [Transfer Hold] heparin, 5,000 Units, SubCUTAneous, 2 times per day [Transfer Hold] levETIRAcetam, 500 mg, Oral, Daily [Held by provider] sevelamer carbonate, 800 mg, Oral, TID WC sodium chloride 0.9%, 10 mL, IntraVENous, 2 times per day [Transfer Hold] sodium chloride 0.9%, 5-40 mL, IntraVENous, 2 times per day [Transfer Hold] sodium chloride 0.9%, 5-40 mL, IntraCATHeter, q8h [Transfer Hold] sulfamethoxazole-trimethoprim, 1 tablet, Oral, Daily [6] Family History Problem Relation Name Age of Onset Dementia Mother Stroke Father Prostate cancer Brother 69 Breast cancer Cousin 32 Stomach cancer Mother's Sister 70 Hospitalist Progress Note 11/02/2024 Subjective: Admit Date: 10/22/2024 PCP: Roxie Spain Room#: [id number] A Interval History: On room air. Hypertensive. No fever. Unable to obtain review of system. NPO diet with enteral medications 24HR INTAKE/OUTPUT: Intake/Output Summary (Last 24 hours) at 11/02/2024 0607 Last data filed at 11/01/2024 2206 Gross per 24 hour Intake 484.1 ml Output -- Net 484.1 ml Past Medical History: Medical History[1] LABS: CBC: Recent Labs 10/31/2452511/01/247 11/02/24 0241 WBC 17.2* 20.4* 21.9* RBC 2.91* 2.75* 2.48* HGB 8.5* 8.0* 7.4* HCT 26.6* 25.2* 22.9* MCV 91.4 91.6 92.3 RDW 16.7* 16.6* 16.3* PLT 531* 557* 530* BMP: Recent Labs 10/31/24 0511/01/247 11/02/24 0241 NA 143 139 138 K 4.4 4.6 4.8 CL 110* 104 105 CO2 23 22* 21* BUN 27* 14 20 CREATININE 4.44* 2.98* 4.11* GLUCOSE 73* 67* 64* CALCIUM 8.0* 7.7* 7.7* ANIONGAP 10 13 12 LIVER PROFILE:No results for input(s): AST, ALT, BILITOT, ALKPHOS, PROT in the last 72 hours. No lab exists for component: LABALBU PT/INR: Recent Labs 11/01/24 1358 PROTIME 11.8 INR 1.1 CARDIAC ENZYMES: No results for input(s): TROPONINI in the last 72 hours. Procalcitonin: No results found for: PROCAL COVID-19 PCR: No results for input(s): COVID19 in the last 72 hours. Objective: Vitals: BP 159/92 (BP Location: Right arm, Patient Position: Lying) Pulse 114 Temp 37.4 C (99.3 F) (Temporal) Resp 16 Ht 5' 4 (1.626 m) Wt 112 lb 7 oz (51 kg) SpO2 97% BMI 19.30 kg/m Pulse Ox: SpO2 Av % Min: 97 % Max: 99 % Supplemental O2: Physical Exam HENT: Head: Normocephalic and atraumatic. Cardiovascular: Rate and Rhythm: Normal rate and regular rhythm. Pulmonary: Effort: Pulmonary effort is normal. No respiratory distress. Abdominal: General: Bowel sounds are normal. Palpations: Abdomen is soft. Neurological: Mental Status: She is disoriented. Medications: Scheduled PRN Scheduled Meds[2] PRN Meds[3] Continuous Continuous Meds[4] Assessment 74 yo female presented with fever and tachycardia and lethargy to [facility] on 10/22/24. HC POA is partner = Edward and brother Deshawn Recently admitted from 09/13 to 10/12 at [facility] for new onset atrial fibrillation complicated by COVID 19 infection, Enterobacter cloacae, Klebsiella pneumonia, Klebsiella oxytocin and VR Enterococcus which she was treated for complete course. Went into septic shock at that time for increased leukocytosis and C. difficile colitis which was treated.Requiring ICU admission during admission and tunneled HD catheter placed on discharge on 10/12 prior to going to hospital. recent infected hematoma which was I&D at [facility] and treated with antibiotics from 08/14-08/24 in which she went under cardiac arrest which was thought to be due to the right thigh and anterior hip abscess - which was drained and she left with wound vac. Returned on 08/26 for expanding hematoma to the right thigh requiring 2 units of pRBC, and transferred to [facility] for IR emobolization of thigh hematoma, but a decision was made not to perform any intervention and she was discharged to SNF on 09/06. 10/22-10/31 [facility] ICU. Patient did not require vasopressors. October 28 transferred to [facility]. October 31 decided to transfer patient to [facility] for vascular assessment of fistula to see for if the fistula is potentially source of infection. 10/23 Successful uncomplicated ultrasound and fluoroscopically guided left sided central line placement. The catheter is ready for immediate use. 11/01 patient evaluated by vascular surgery. OR for assessment of AV fistula clotted infection on November 02. Infectious ease recommends Bactrim renally dosed through November 13 Nephrology following for dialysis Palliative care following, CODE STATUS DO NOT RESUSCITATE CCA Sepsis infected pressure ulcer on left buttocks secondary to Enterobacter because of a complex Rule out infected left arm fistula ESRD HTN Hx of seizures History of cardiopulmonary arrest August 2024 at [facility] Extended Emergency Contact Information Primary Emergency Contact: Deshawn Crystal Mobile Relation: Brother Technical Coordinator needed? No Secondary Emergency Contact: BahmanEdward Mobile Relation: Significant Other Preferred language: Cambodian Technical Coordinator needed? No Candy Denis DO Division of Hospitalist Medicine [facility] [1] Past Medical History: Diagnosis Date Chronic kidney disease (CKD) Hemodialysis patient (CMS/HCC) (HCC) Wednesday, , Wednesday History of blood transfusion 02/27/2022 Hypertension Seizure (HCC) Developed seizure-like activity on 02/24 during hospital admission [2] amLODIPine, 5 mg, Oral, Daily chlorhexidine, , Topical, Daily collagenase, , Topical, Daily heparin, 5,000 Units, SubCUTAneous, 2 times per day levETIRAcetam, 500 mg, Oral, Daily [Held by provider] sevelamer carbonate, 800 mg, Oral, TID WC sodium chloride 0.9%, 5-40 mL, IntraVENous, 2 times per day sodium chloride 0.9%, 5-40 mL, IntraCATHeter, q8h sulfamethoxazole-trimethoprim, 1 tablet, Oral, Daily [3] PRN medications: acetaminophen OR acetaminophen, acetaminophen, collagenase, dextrose, dextrose, glucagon (rDNA), glucose, heparin, heparin, hydrALAZINE, labetalol, melatonin, naloxone, ondansetron ODT OR ondansetron, oxyCODONE, polyethylene glycol (PEG) 3350, sodium chloride, sodium chloride, sodium chloride, sodium chloride 0.9%, sodium chloride 0.9% [4] [facility] PROGRESS NOTE Subjective Interval History: Apoorva Gonzalez is being followed for ESRD. Transferred yes to be evaluated by vascular surgery Left upper extremity AVG has fluid around arterial anastomosis at area of ulceration. This is concerning for ongoing infection and therefore the graft needs to be removed. It is currently thrombosed. Plan for AVG explant tomorrow morning Medications Current Medications[1] Objective Physical Exam Awake, more appropriate Heart is tachycardic, regular Chest is CTA No edema Relevant Results Vital signs in last 24 hours: Temp: [36.8 C (98.2 F)-37.6 C (99.7 F)] 37.2 C (98.9 F) Heart Rate: [111-117] 112 Resp: [16-20] 18 BP: (155-178)/(96-108) 160/108 Intake/Output this shift: I/O this shift: In: 244.1 [P.O.:240; I.V.:4.1] Out: - Intake/Output last 3 shifts: I/O last 3 completed shifts: In: 300 (5.9 mL/kg) [I.V.:300 (5.9 mL/kg)] Out: - (0 mL/kg) Weight: 51 kg Labs: Results from last 7 days Lab Units 11/01/24 0317 WBC AUTO 10*3/uL 20.4* RBC AUTO 10*6/uL 2.75* HEMOGLOBIN g/dL 8.0* HEMATOCRIT % 25.2* Results from last 7 days Lab Units 11/01/24 0317 10/27/24 0339 10/26/24 0657 SODIUM mmol/L 139 < > 143 POTASSIUM mmol/L 4.6 < > 3.7 CHLORIDE mmol/L 104 < > 106 CO2 mmol/L 22* < > 25 BUN mg/dL 14 < > 24* CREATININE mg/dL 2.98* < > 4.91* CALCIUM mg/dL 7.7* < > 7.8* PHOSPHORUS mg/dL -- -- 2.7 MAGNESIUM mg/dL -- -- 1.9 < > = values in this interval not displayed. No lab exists for component: FATCASTU Assessment/Plan Principal Problem: Sepsis, due to unspecified organism, unspecified whether acute organ dysfunction present (HCC) ESRD Stable on dialysis Euvolemia Access TDC Normokalemia AVF has clotted, with possible infection Tachycardic Plan Plan for AVG explant tomorrow niya Next HD to be done after surgery Pipe Soto MD 11/01/2024 5:36 PM [1] Current Facility-Administered Medications: acetaminophen (Tylenol) tablet 650 mg, 650 mg, Oral, q6h PRN, 650 mg at 11/01/24 1505 OR acetaminophen (Tylenol) suppository 650 mg, 650 mg, Rectal, q6h PRN, Kaylin Thomas, DO, 650 mg at 10/27/24 0034 acetaminophen (Tylenol) tablet 650 mg, 650 mg, Oral, q6h PRN, Kaylin Thomas, DO amLODIPine (Norvasc) tablet 5 mg, 5 mg, Oral, Daily, Ana Boyce, RADIATION ONCOLOGIST - AGENCY TRAINER, 5 mg at 11/01/24 0810 chlorhexidine (Hibiclens) 4 % solution, , Topical, Daily, Kaylin Thomas, DO, Given at 11/01/24 1340 collagenase 250 UNIT/GM ointment, , Topical, PRN, Kaylin Thomas, DO collagenase 250 UNIT/GM ointment, , Topical, Daily, Kaylin Thomas, DO, Given at 11/01/24 0945 dextrose 5 % infusion, 100 mL/hr, IntraVENous, PRN, Kaylin Thomas, DO dextrose 50 % solution 12.5 g, 12.5 g, IntraVENous, PRN, Kaylin Thomas, DO, 12.5 g at 10/24/24 0654 glucagon (human recombinant) injection 1 mg, 1 mg, IntraMUSCular, PRN, Kaylin Thomas, DO glucose oral gel 15 g, 15 g, Oral, PRN, Kaylin Thomas, DO, 15 g at 10/30/24 0451 heparin injection 1,200-2,000 Units, 1,200-2,000 Units, IntraCATHeter, PRN, Kaylin Thomas, DO, 2,000 Units at 10/31/24 1440 heparin injection 1,200-2,000 Units, 1,200-2,000 Units, IntraCATHeter, PRN, Kaylin Thomas DO, 2,100 Units at 10/31/24 1440 heparin injection 5,000 Units, 5,000 Units, SubCUTAneous, 2 times per day, Kaylin Thomas DO, 5,000 Units at 11/01/24 0810 hydrALAZINE (Apresoline) injection 10 mg, 10 mg, IntraVENous, q4h PRN, PARK Erickson CNP, 10 mg at 10/31/24 204 labetalol (Normodyne,Trandate) injection 10 mg, 10 mg, IntraVENous, q4h PRN, Kaylin Thomas DO, 10 mg at 10/30/242053 levETIRAcetam (Keppra) tablet 500 mg, 500 mg, Oral, Daily, Candy Denis DO, 500 mg at 11/01/24 0945 melatonin tablet 5 mg, 5 mg, Oral, Nightly PRN, Romain Meadows NP, 5 mg at 10/31/24 2336 naloxone (Narcan) injection 0.4 mg, 0.4 mg, IntraVENous, q5 min PRN, Jalen Snider MD ondansetron ODT (Zofran-ODT) disintegrating tablet 4 mg, 4 mg, Oral, q8h PRN OR ondansetron (Zofran) injection 4 mg, 4 mg, IntraVENous, q6h PRN, Kaylin Thomas DO oxyCODONE (Roxicodone) immediate release tablet 5 mg, 5 mg, Oral, q8h PRN, PARK Erickson CNP, 5 mg at 11/01/24 1705 polyethylene glycol (PEG) 3350 (Miralax) packet 17 g, 17 g, Oral, Daily PRN, Kaylin Thomas DO [Held by provider] sevelamer carbonate (Renvela) tablet 800 mg, 800 mg, Oral, TID WCKaylin DO sodium chloride 0.9 % infusion, 5-250 mL/hr, IntraVENous, PRN, Kaylin Thomas DO sodium chloride 0.9 % infusion, 250 mL/hr, IntraVENous, PRN, Kaylin Thomas DO sodium chloride 0.9 % infusion, 250 mL/hr, IntraVENous, PRN, Ana Boyce, RADIATION ONCOLOGIST - AGENCY TRAINER sodium chloride 0.9% (NS) flush 5-40 mL, 5-40 mL, IntraVENous, 2 times per day, Kaylin Luttmann, DO, 10 mL at 11/01/24 0810 sodium chloride 0.9% (NS) flush 5-40 mL, 5-40 mL, IntraVENous, PRN, Kaylin Luttmann, DO sodium chloride 0.9% (NS) flush 5-40 mL, 5-40 mL, IntraCATHeter, q8h, Kaylin Luttmann, DO, 10 mL at 11/01/24 1351 sodium chloride 0.9% (NS) flush 5-40 mL, 5-40 mL, IntraVENous, PRN, Kaylin Luttmann, DO, 10 mL at 10/27/242031 sulfamethoxazole-trimethoprim (Bactrim DS) 800-160 MG per tablet 1 tablet, 1 tablet, Oral, Daily, Shamar More MD, 1 tablet at 11/01/24 0810 Nutrition Assessment Type and Reason for Visit: Reassess Nutrition Recommendations/Plan: Would continue with fully liberalized Regular diet, will continue to monitor acute renal labs however need to continue to encourage PO intake at meals. Pt already ordered Vanilla Magic Cup BID and Nepro once daily, pt confirms liking Magic Cup, unclear about Nepro consumption (pt just transferred here last night after being at [facility] for 9 days). Please continue to record % consumed of meals in I/O Flowsheet. RD to monitor weight (confirm/monitor for Nephrology comment on pt's current EDW), labs, fluid, overall nutritional status & follow up weekly. Malnutrition Assessment: Malnutrition Status: At risk for malnutrition (Comment) (continue with ONS and liberalized diet; noted MD or AGENCY TRAINER have been documenting Severe Malnutrition since 10/23) Context: Acute Illness (however chronic status also questioned with admissions in the past couple months) Findings of the 6 clinical characteristics of malnutrition: Energy Intake: Mild decrease in energy intake (Comment) (however likely <75% or less for one week, recorded PO intakes here 0-100%, in prior admits pt also had largely varied PO intakes) Weight Loss: Unable to assess (acute weights ranging in the 110#s, per chart last EDW may be ~104#,) Body Fat Loss: Unable to assess Muscle Mass Loss: Unable to assess (deferred, pt had just returned from vascular lab, RD encouraged pt to eat and she seemed to be preparing to do so at end of conversation (meal already in room)) Fluid Accumulation: No significant fluid accumulation (per chart) Property Condition Assessor Strength: Not Performed Nutrition Assessment: Pt with PMH including ESRD on HD, Seizures, HTN, HLD, recent admission to OSH for sudden cardiac arrest 05/07 right thigh/hip abscess s/p I&D 08/16 presented initially to [facility] from [facility] on 10/22 due to AMS; in ED pt noted to be febrile 101.3 at [facility], tachycardic, tachypneic and with elevated WBC, received IV fluid bolus, antibiotics, admitted to [facility] for further work up; Critical care consulted the following day as pt remained febrile, tachycardic and tachypneic, WBC count also continuing to increase with worsening anemia; pt has had multiple admissions 08/14 to 08/24 at [facility] for cardiac arrest, 08/26 to 09/06 at for sepsis believed to be due to an infected right thigh wound and hematoma; [facility] from 09/13-10/12 w/ COVID-19 due to covid-19, electrolyte derangements, Enterobacter cloacae, Klebsiella pneumonia, Klebsiella oxytocin and VR Enterococcus which were treated for complete course, also, had C. difficile colitis which was treated, had tunneled HD catheter placed on discharge on 10/12; at [facility] PT/OT/LP, ID, Nephrology, and Wound Care consulted; pt was transferred out of ICU services to medical services on 10/24, noted to be receiving Meropenem and Vancomycin IV (stopped, transitioned to oral abx) for infected pressure ulcer on left buttocks, last HD 10/31; on 10/27 pt received 1 unit of blood (3rd unit pt had received there); at [facility] Palliative Care was following, speaking with pt's brother, code status changed to DNR-CCA; pt noted to need fistula placement for HD, has temp HD cath in place, transferred here yesterday for new fistula placement; here Vascular was consulted for same, recommended OR for assessment of AV fistula clot/infection 11/02. CAREER RESOURCE SPECIALIST following (signed off today), diet progressed to Regular from Soft and Bite Sized 10/30, recorded intakes this admission largely varied (0-100%), receiving Magic Cup and Nepro ONS. Pt was initially OOR in Vascular lab, meal tray was present however tray was soft and bite sized food (mac and cheese, mashed potatoes, carrots and pears cut up to bite size), Magic Cup was on tray, RD spoke with diet office who noted prior meal from when pt was previously on dysphagia diet must have been copied over for today, pt had sausage links and eggs for breakfast this AM; pt then arrived back to room, RD asked if lunch tray was OK (showed pt what was on tray) and offered regular textured food, pt stated meal in front of her was fine, she may pick on it in a little bit (RD encouraged, pt pulled off lid from hot plate while RD in room), she declined assistance w/ setting up tray; pt states she really likes Magic Cup, pt had no response for RD when asked if she was drinking protein shake which she would have last received while at [facility]. Nutrition Related Findings: pos I/O (4.3L); +BS, last BM 10/30; No edema indicated; medications include renvela; labs: SCr (2.98), BG (67) Wound Type: Pressure Injury, Unstageable (sacrum extending to L buttock) Current Nutrition Therapies: Adult diet Regular Current Oral Intake Average Meal Intake: 0%, 1-25%, 26-50%, 51-75%, 76-100% (per flowsheet) Average Supplements Intake: Unable to assess (pt just transferred to [facility] from [facility] last night) Anthropometric Measures: Height: 162.6 cm (5' 4) Current Body Weight: 51 kg (112 lb 7 oz) (10/31 weight per chart; acute weights flucuated, up to 117#; per chart, most recent EDW may be 104#; today pt had just returned to room at time of RD visit this afternoon) Weight Source: Bed Scale Admission Body Weight: 48.3 kg (106 lb 7.7 oz) Usual Body Weight: 48.9 kg (107 lb 12.8 oz) (Per EMR--> 110# 08/09/23; 105.4# 03/03/24; 112# 06/09/24; 107.8# 08/26/24; 114.4# 10/06/24 bed scale) % Weight Change (Calculated): -1.2 [place] Body Weight (lbs) (Calculated): 120 lbs [place] Body Weight (Kg) (Calculated): 55 kg % [place] Body Weight (Calculated): 97.7 % BMI (kg/m2) (Calculated): 19.3 Weight Adjustment For: No Adjustment BMI Categories: Underweight (BMI less than 22) age over 65 Nutrition Interventions: Nutrition Education/Counseling: Education not indicated Coordination of Nutrition Care: Continue to monitor while inpatient Plan of Care discussed with: pt Goals: Previous Goal Met: (? progress) Goals: PO intake 75% or greater, by next RD assessment Nutrition Monitoring and Evaluation: Behavioral-Environmental Outcomes: Knowledge or Skill Food/Nutrient Intake Outcomes: Food and Nutrient Intake, Supplement Intake Physical Signs/Symptoms Outcomes: Biochemical Data, Fluid Status or Edema, Meal Time Behavior, Nutrition Focused Physical Findings, Skin, Weight Discharge Planning: Too soon to determine Alexus Denney RD Contact: Secure chat or *[phone] Images from the original note were not included. PHYSICAL THERAPY [facility] Re-Evaluation Name/MRN: Apoorva Gonzalez ([id number]) Evaluation Date: 11/01/2024 Date of : 1950 Admission Date: 10/22/2024 12:48 PM Age: 74 y.o. [facility] Recommendation: [facility] Equipment Needed: No Assessment IMPRESSION: PT re-evaluation completed d/t pt transfer SB>[facility]. She is here for sepsis, fever, lethargy. Max A for mobility, MANAGER PHOTOGRAPHY required assist for all from SNF. Will recommend return to SNF at discharge. Admitting Diagnosis: sepsis, fever, lethargy Prognosis: fair Performance Deficits /Impairments: Decreased Functional Mobility, Decreased Strength, Decreased Safety Awareness, Decreased Endurance, and Decreased Balance Decision Making: Medium Complexity Subjective Pt supine in bed. Agreeable to PT session. Cleared by nursing Pain: Pt denies any current pain. Past Medical History: Medical History[1] Past Surgical History: Surgical History[2] Admission Diagnosis: Patient Active Problem List Diagnosis Date Noted Sepsis, due to unspecified organism, unspecified whether acute organ dysfunction present (HCC) 10/22/2024 Edema of left lower extremity 10/05/2024 COVID-19 09/14/2024 Shortness of breath 03/02/2024 Pulmonary edema, acute (HCC) 02/19/2024 Gastrointestinal hemorrhage, unspecified gastrointestinal hemorrhage type 01/19/2024 Hypertensive emergency 02/21/2022 Anemia 01/19/2024 Medical Precautions: Contact Proper PPE donned/doffed in accordance with facility standards. Fall Risk: [place] Fall Risk Score: 75 (High Risk) Precautions/Restrictions: Fall Precautions Family/Caregiver Present: none Overall Cognitive Status: Exceptions - Following commands: follows one step commands with increased time and follows one step commands with repetition - Safety judgement: decreased awareness of need for assistance and decreased awareness of need for safety - Problem solving: assistance required to generate solutions and assistance required to correct errors made Overall Orientation Status: Oriented to Person Vision: Not Assessed Hearing: normal Social/Functional History Patient admitted from SNF. Assistive Equipment: wheelchair - manual Prior Level of Function Prior Level of ADL Function: Required Assist Prior Level of Mobility: Required Assist; Device: staff assist for transfers Prior Level of Transfers: Required Assist Objective Lower Extremity Assessment AROM: WFL PROM: WFL Strength: WFL 3+/5 overall Sensation: WFL Balance: Balance During Session: Posture: poor Sitting - Static: Min Assist Sitting - Dynamic: Min Assist Seated EOB ~5 min with Min A at all times with retrograde leaning Bed Mobility: Supine to sit: Max Assist Sit to supine: Max Assist HOB Elevated Assist with BLE and trunk to and from EOB, use of glide sheet, cues for reaching and pt assist Transfers Unable to assess Ambulation Did not assess this session. Outcome Measures AM-PAC How much HELP from another person do you currently need Turning from your back to your side while in a flat bed without using bedrails?: A Lot Moving from lying on your back to sitting on the side of a flat bed without using bedrails?: A Lot Moving to and from a bed to a chair (including a wheelchair)?: Total Standing up from a chair using your arms (wheelchair or bedside chair)?: Total Walking in a hospital room?: Total Stair climbing assessed?: No AM-PAC Inpatient Mobility Raw Score (No Stairs) : 7 JH-HLM JH-HLM Score: Sat at edge of bed Plan Pt would benefit from skilled acute PT services to address Strengthening, Gait Training, Balance Training, Functional Mobility Training, Endurance Training, Safety Education and Training, Stair Training, Equipment Evaluation/Education, Neuromuscular Re-Education Training, and Patient/Caregiver Training. Frequency: 2x/weekfor 4 weeks Barriers: Impaired balance, Lower extremity weakness, Upper extremity weakness, Decreased endurance, and Limited safety awareness Safety/Education Safety Safety Devices in place: call light within reach, left in bed, nurse notified, and no alarms engaged upon entry Restraints: No Education Education Given To: patient Education Provided: PT Role, PT Goals, Plan of Care, Precautions, Transfer Training, Fall Prevention Education, Discharge Recommendations, and Benefits of Increasing Activity Education Method: Verbal Barriers to Learning: None Education Outcome: Verbalized Understanding Goals Patient Stated Goal: to feel better Encounter Problems Encounter Problems (Active) Balance Patient will maintain static sitting balance for 10 minutes with SBA in order to demonstrate improved postural control and prepare for out of bed mobility. Start: 11/01/24 Expected End: 11/29/24 Mobility Patient will ambulate 10 feet with min assist and least restrictive device in order to improve safety and independence with mobility. Start: 11/01/24 Expected End: 11/29/24 Transfers Patient will perform bed mobility with CGA in order to improve independence and prepare for out of bed mobility. Start: 11/01/24 Expected End: 11/29/24 Patient will complete functional transfer with least restrictive device with min assist in order to prepare for ambulation. Start: 11/01/24 Expected End: 11/29/24 Therapy Time Individual Co-Treatment Co-Evaluation Time In 1015 Time Out 1028 Minutes 13 Timed Code Treatment Minutes: (re-eval) Guilherme Tavares PT Patient's Physical Therapy Plan of Care supervision is transferred to a [facility] Therapy Services Physical Therapist. Goals and/or treatment plan was established in collaboration with patient/family/other representatives. [1] Past Medical History: Diagnosis Date Chronic kidney disease (CKD) Hemodialysis patient (CMS/HCC) ([facility]) Wednesday, , Wednesday History of blood transfusion 02/27/2022 Hypertension Seizure (HCC) Developed seizure-like activity on 02/24 during hospital admission [2] Past Surgical History: Procedure Laterality Date AV FISTULA PLACEMENT Left 08/07/2022 COLONOSCOPY N/A 01/25/2024 Performed by Chrissy Gilman MD at [facility] ENDOSCOPY IR CVC TUNNELED DIALYSIS CATHETER PLACEMENT 02/27/2022 IR CVC TUNNELED CATHETER PLACEMENT 02/27/2022 Candis Andrade MD [facility] SPECIAL PROCEDURES IR EMBOLIZATION 01/24/2024 IR EMBOLIZATION 01/24/2024 Jovan Glynn MD [facility] SPECIAL PROCEDURES Images from the original note were not included. Speech-Language Pathology SPEECH LANGUAGE PATHOLOGY [facility] Dysphagia Treatment Note Patient Name: Apoorva Gonzalez Evaluation Date: 11/01/2024 Date of : 1950 Admission Date: 10/22/2024 12:48 PM Age: 74 y.o. Room/Bed: [facility] A Subjective Patient alert and cooperative. Seen upright in bed. Answers all basic questions with clear vocal quality. Follows all basic commands. No visitors at bedside. Spoke with CYNTHIA Og who cleared pt for treatment. Current Diet: Dietary Orders (From admission, onward) Start Ordered 10/30/24 1019 Adult diet Regular Diet effective now Comments: Regular/thin liquids/ok for meds Question: Diet type Answer: Regular 10/30/24 1019 10/26/24 1438 Supplement:Dinner; Nepro w/CARB Steady Until discontinued Question Answer Comment Frequency Dinner Select supplement: Nepro w/CARB Steady 10/26/24 1438 10/26/24 1438 Supplement:Breakfast, Lunch; Vanilla Magic Cup Until discontinued Question Answer Comment Frequency Breakfast Frequency Lunch Select supplement: Vanilla Magic Cup 10/26/24 1438 Aspiration Precautions: - Upright positioning for all PO intake - Slow rate of intake - Alternate solid and liquids Oxygen: Oxygen Therapy: None (Room air) Pain: Pt denies any current pain. PPE Worn: gown, gloves Objective & Assessment Dysphagia Treatment # of Activities: 1 Dysphagia Activity 1: assess diet tolerance Patient reports good tolerance of current diet. She accepted trials of thin liquid via straw, soft and bite sized, and regular solids. All trials met with clinically adequate oral bolus control, timely swallow onset, and complete oral clearance. Mastication was prolonged but complete with dry solid. She requested a liquid wash to initiate a swallow with same. No overt s/sx of aspiration or penetration. Plan & Recommendations Plan: Recommend Regular solids and Thin liquids and meds as tolerated and the following precautions: - Upright positioning for all PO intake - Slow rate of intake - Small bites/sips Patient has achieved all acute care CAREER RESOURCE SPECIALIST goals. Speech therapy to sign off at this time. D/C Recommendations: No follow up therapy recommended post discharge Education Education Given: safety, swallowing strategies, diet recommendations Given To: patient Response: verbalizes understanding Goals Patient Stated Goal: to have warmer water Encounter Problems Encounter Problems (Resolved) Swallowing Patient will tolerate the least restrictive diet consistency to allow for safe consumption of daily meals (Completed) Start: 10/24/24 Expected End: 11/07/24 Resolved: 11/01/24 Patient will demonstrate safe swallowing Intervention/techniques (Completed) Start: 10/24/24 Expected End: 11/07/24 Resolved: 11/01/24 Patient will use appropriate strategies for increased oralpharyngeal swallow function (Completed) Start: 10/24/24 Expected End: 11/07/24 Resolved: 11/01/24 Therapy Time CAREER RESOURCE SPECIALIST Individual Minutes Time In: 1034 Time Out: 1044 Minutes: 10 Tameka Bernard CAREER RESOURCE SPECIALIST [employer] Bro[employer] Cosigned by Evelia Mares CCC-CAREER RESOURCE SPECIALIST at 11/01/2024 11:04 AM EDT Hospitalist Progress Note 11/01/2024 Subjective: Admit Date: 10/22/2024 PCP: Roxie Spain Room#: W6-637/W6-487 A Interval History: On room air. Hypertensive. No fever. Unable to obtain review of system. Adult diet Regular 24HR INTAKE/OUTPUT: Intake/Output Summary (Last 24 hours) at 11/01/2024 0910 Last data filed at 10/31/2024 1440 Gross per 24 hour Intake 300 ml Output -- Net 300 ml Past Medical History: Medical History[1] LABS: CBC: Recent Labs 10/30/2445410/31/2452511/01/24316 WBC 18.2* 17.2* 20.4* RBC 2.85* 2.91* 2.75* HGB 8.3* 8.5* 8.0* HCT 26.3* 26.6* 25.2* MCV 92.3 91.4 91.6 RDW 16.6* 16.7* 16.6* PLT 502* 531* 557* BMP: Recent Labs 10/30/2445410/31/2452511/01/24316 NA 143 143 139 K 4.2 4.4 4.6 CL 110* 110* 104 CO2 26 23 22* BUN 21 27* 14 CREATININE 3.52* 4.44* 2.98* GLUCOSE 79* 73* 67* CALCIUM 7.7* 8.0* 7.7* ANIONGAP 7 10 13 LIVER PROFILE:No results for input(s): AST, ALT, BILITOT, ALKPHOS, PROT in the last 72 hours. No lab exists for component: LABALBU PT/INR: No results for input(s): PROTIME, INR in the last 72 hours. CARDIAC ENZYMES: No results for input(s): TROPONINI in the last 72 hours. Procalcitonin: No results found for: PROCAL COVID-19 PCR: No results for input(s): COVID19 in the last 72 hours. Objective: Vitals: BP (!) 160/108 (BP Location: Right arm, Patient Position: Sitting) Pulse 112 Temp 37.2 C (98.9 F) (Temporal) Resp 18 Ht 5' 4 (1.626 m) Wt 112 lb 7 oz (51 kg) SpO2 99% BMI 19.30 kg/m Pulse Ox: SpO2 Av % Min: 97 % Max: 99 % Supplemental O2: Physical Exam HENT: Head: Normocephalic and atraumatic. Cardiovascular: Rate and Rhythm: Normal rate and regular rhythm. Pulmonary: Effort: Pulmonary effort is normal. No respiratory distress. Abdominal: General: Bowel sounds are normal. Palpations: Abdomen is soft. Neurological: Mental Status: She is disoriented. Medications: Scheduled PRN Scheduled Meds[2] PRN Meds[3] Continuous Continuous Meds[4] Assessment 74 yo female presented with fever and tachycardia and lethargy to [facility] on 10/22/24. HC POA is partner = Edward and brother Deshawn Recently admitted from 09/13 to 10/12 at [facility] for new onset atrial fibrillation complicated by COVID 19 infection, Enterobacter cloacae, Klebsiella pneumonia, Klebsiella oxytocin and VR Enterococcus which she was treated for complete course. Went into septic shock at that time for increased leukocytosis and C. difficile colitis which was treated.Requiring ICU admission during admission and tunneled HD catheter placed on discharge on 10/12 prior to going to hospital. recent infected hematoma which was I&D at [facility] and treated with antibiotics from 08/14-08/24 in which she went under cardiac arrest which was thought to be due to the right thigh and anterior hip abscess - which was drained and she left with wound vac. Returned on 08/26 for expanding hematoma to the right thigh requiring 2 units of pRBC, and transferred to [facility] for IR emobolization of thigh hematoma, but a decision was made not to perform any intervention and she was discharged to SNF on 09/06. 10/22-10/31 [facility] ICU. Patient did not require vasopressors. October 28 transferred to [facility]. October 31 decided to transfer patient to [facility] for vascular assessment of fistula to see for if the fistula is potentially source of infection. 10/23 Successful uncomplicated ultrasound and fluoroscopically guided left sided central line placement. The catheter is ready for immediate use. 11/01 patient evaluated by vascular surgery. OR for assessment of AV fistula clotted infection on November 02. Infectious ease recommends Bactrim renally dosed through November 13 Nephrology following for dialysis Palliative care following, CODE STATUS DO NOT RESUSCITATE CCA Sepsis infected pressure ulcer on left buttocks secondary to Enterobacter because of a complex Rule out infected left arm fistula ESRD HTN Hx of seizures History of cardiopulmonary arrest August 2024 at [facility] Continue [facility] Extended Emergency Contact Information Primary Emergency Contact: Deshawn Crystal Mobile Relation: Brother Technical Coordinator needed? No Secondary Emergency Contact: Edward Ruggiero Mobile Relation: Significant Other Preferred language: Cambodian Technical Coordinator needed? No Candy Denis DO Division of Hospitalist Medicine [facility] [1] Past Medical History: Diagnosis Date Chronic kidney disease (CKD) Hemodialysis patient (CMS/HCC) (HCC) Wednesday, , Wednesday History of blood transfusion 02/27/2022 Hypertension Seizure (HCC) Developed seizure-like activity on 02/24 during hospital admission [2] amLODIPine, 5 mg, Oral, Daily chlorhexidine, , Topical, Daily collagenase, , Topical, Daily heparin, 5,000 Units, SubCUTAneous, 2 times per day levETIRAcetam, 500 mg, IntraVENous, Daily [Held by provider] sevelamer carbonate, 800 mg, Oral, TID WC sodium chloride 0.9%, 5-40 mL, IntraVENous, 2 times per day sodium chloride 0.9%, 5-40 mL, IntraCATHeter, q8h sulfamethoxazole-trimethoprim, 1 tablet, Oral, Daily [3] PRN medications: acetaminophen OR acetaminophen, acetaminophen, collagenase, dextrose, dextrose, glucagon (rDNA), glucose, heparin, heparin, hydrALAZINE, labetalol, melatonin, naloxone, ondansetron ODT OR ondansetron, oxyCODONE, polyethylene glycol (PEG) 3350, sodium chloride, sodium chloride, sodium chloride, sodium chloride 0.9%, sodium chloride 0.9% [4] Images from the original note were not included. PHYSICAL THERAPY [facility] Name/MRN: Apoorva Gonzalez ([id number]) Date: 10/31/2024 Chart review completed. Unable to see pt currently secondary to receiving dialysis. Noted plan to transfer pt to [facility] for vascular consult. Will follow while here for continued therapy if medically stable. Mayuri Parkinson PTA Cosigned by Julian Lerner PT at 10/31/2024 3:33 PM EDT [facility] PROGRESS NOTE Subjective Interval History: Apoorva Gonzalez is being followed for ESRD. Seen during dialysis session. More awake, appropriate. Access - TDC with Qb 350. BP is stable Medications Current Medications[1] Objective Physical Exam Awake, more appropriate Heart is tachycardic, regular Chest is CTA No edema Relevant Results Vital signs in last 24 hours: Temp: [36.4 C (97.6 F)-37.1 C (98.8 F)] 36.5 C (97.7 F) Heart Rate: [96-110] 109 Resp: [16-18] 16 BP: (132-168)/(64-107) 158/107 Intake/Output this shift: No intake/output data recorded. Intake/Output last 3 shifts: I/O last 3 completed shifts: In: 1186 (23.3 mL/kg) [P.O.:1186] Out: - (0 mL/kg) Weight: 51 kg Labs: Results from last 7 days Lab Units 10/31/24 0526 WBC AUTO 10*3/uL 17.2* RBC AUTO 10*6/uL 2.91* HEMOGLOBIN g/dL 8.5* HEMATOCRIT % 26.6* Results from last 7 days Lab Units 10/31/24 0526 10/27/24 0339 10/26/24 0657 SODIUM mmol/L 143 < > 143 POTASSIUM mmol/L 4.4 < > 3.7 CHLORIDE mmol/L 110* < > 106 CO2 mmol/L 23 < > 25 BUN mg/dL 27* < > 24* CREATININE mg/dL 4.44* < > 4.91* CALCIUM mg/dL 8.0* < > 7.8* PHOSPHORUS mg/dL -- -- 2.7 MAGNESIUM mg/dL -- -- 1.9 < > = values in this interval not displayed. No lab exists for component: [facility] Assessment/Plan Principal Problem: Sepsis, due to unspecified organism, unspecified whether acute organ dysfunction present (HCC) ESRD Stable on dialysis Euvolemia Access TDC Normokalemia AVF has clotted Tachycardic Plan Next HD Radha Meza MD 10/31/2024 12:44 PM [1] Current Facility-Administered Medications: acetaminophen (Tylenol) tablet 650 mg, 650 mg, Oral, q6h PRN, 650 mg at 10/30/242052 OR acetaminophen (Tylenol) suppository 650 mg, 650 mg, Rectal, q6h PRN, Kaylin Thomas, DO, 650 mg at 10/27/24 0034 acetaminophen (Tylenol) tablet 650 mg, 650 mg, Oral, q6h PRN, Kaylin Husseinmann, DO amLODIPine (Norvasc) tablet 5 mg, 5 mg, Oral, Daily, Ana Boyce, RADIATION ONCOLOGIST - AGENCY TRAINER, 5 mg at 10/31/24 0820 chlorhexidine (Hibiclens) 4 % solution, , Topical, Daily, Kaylin Thomas, DO, Given at 10/30/24 1630 collagenase 250 UNIT/GM ointment, , Topical, PRN, Kaylin Thomas, DO collagenase 250 UNIT/GM ointment, , Topical, Daily, Kaylin Thomas DO, Given at 10/30/24 1009 dextrose 5 % infusion, 100 mL/hr, IntraVENous, PRN, Kaylin Thomas, dextrose 50 % solution 12.5 g, 12.5 g, IntraVENous, PRN, Kaylin Thomas, , 12.5 g at 10/24/24 0654 glucagon (human recombinant) injection 1 mg, 1 mg, IntraMUSCular, PRN, Kaylin Thomas, DO glucose oral gel 15 g, 15 g, Oral, PRN, Kaylin Thomas, DO, 15 g at 10/30/24 0451 heparin injection 1,200-2,000 Units, 1,200-2,000 Units, IntraCATHeter, PRN, Kaylin Thomas, DO, 2,100 Units at 10/26/24 1343 heparin injection 1,200-2,000 Units, 1,200-2,000 Units, IntraCATHeter, PRN, Kaylin Thomas, DO, 2,000 Units at 10/26/24 1341 heparin injection 1,200-2,000 Units, 1,200-2,000 Units, IntraCATHeter, PRN, Kaylin Thomas, DO, 2,100 Units at 10/28/24 1221 heparin injection 1,200-2,000 Units, 1,200-2,000 Units, IntraCATHeter, PRN, Kaylin Husseinmann, DO, 2,000 Units at 10/28/24 1221 heparin injection 5,000 Units, 5,000 Units, SubCUTAneous, 2 times per day, Kaylin Thomas DO, 5,000 Units at 10/31/24 0820 hydrALAZINE (Apresoline) injection 10 mg, 10 mg, IntraVENous, q4h PRN, Ana Boyce APRN - AGENCY TRAINER, 10 mg at 10/30/24 0451 labetalol (Normodyne,Trandate) injection 10 mg, 10 mg, IntraVENous, q4h PRN, Kaylin Thomas DO, 10 mg at 10/30/242053 levETIRAcetam in sodium chloride (Keppra) IVPB 500 mg, 500 mg, IntraVENous, Daily, Kaylin Thomas DO, Stopped at 10/31/24 103 Melatonin disintegrating tablet 5 mg, 5 mg, Oral, Nightly PRN, Jalen Snider MD, 5 mg at 10/30/242053 naloxone (Narcan) injection 0.4 mg, 0.4 mg, IntraVENous, q5 min PRN, Jalen Snider MD ondansetron ODT (Zofran-ODT) disintegrating tablet 4 mg, 4 mg, Oral, q8h PRN OR ondansetron (Zofran) injection 4 mg, 4 mg, IntraVENous, q6h PRN, Kaylin Thomas DO polyethylene glycol (PEG) 3350 (Miralax) packet 17 g, 17 g, Oral, Daily PRN, Kaylin Thomas DO [Held by provider] sevelamer carbonate (Renvela) tablet 800 mg, 800 mg, Oral, TID WC, Kaylin Thomas DO sodium chloride 0.9 % infusion, 5-250 mL/hr, IntraVENous, PRN, Kaylin Tohmas DO sodium chloride 0.9 % infusion, 250 mL/hr, IntraVENous, PRN, Kaylin Thomas DO sodium chloride 0.9 % infusion, 250 mL/hr, IntraVENous, PRN, PARK Erickson CNP sodium chloride 0.9% (NS) flush 5-40 mL, 5-40 mL, IntraVENous, 2 times per day, Kaylin Thomas DO, 10 mL at 10/31/24 0821 sodium chloride 0.9% (NS) flush 5-40 mL, 5-40 mL, IntraVENous, PRN, Kaylin Luttmann, DO sodium chloride 0.9% (NS) flush 5-40 mL, 5-40 mL, IntraCATHeter, q8h, Kaylin Thomas, DO, 10 mL at 10/31/24 0526 sodium chloride 0.9% (NS) flush 5-40 mL, 5-40 mL, IntraVENous, PRN, Kaylin Thomas, DO, 10 mL at 10/27/24 203 sulfamethoxazole-trimethoprim (Bactrim DS) 800-160 MG per tablet 1 tablet, 1 tablet, Oral, Daily, Shamar More MD, 1 tablet at 10/31/24 0820 traMADol (Ultram) tablet 50 mg, 50 mg, Oral, q8h PRN, Ana Boyce, RADIATION ONCOLOGIST - AGENCY TRAINER Hospitalist Progress Note 10/31/2024 Subjective: Admit Date: 10/22/2024 PCP: Roxie Spain Room#: B2-258/B2-258 A BRIEF HOSPITAL COURSE: Apoorva Gonzalez is a 74 year old female who presented 10/22 from SNF due to altered mental status. In the ED was noted to be febrile 101.3 at SNF, tachycardic, tachypneic and with elevated WBC. Received IV fluid bolus, antibiotics. Admitted to [facility] for further work up. Critical care consulted the following day as patient remained febrile, tachycardic and tachypneic. WBC count also continuing to increase with worsening anemia. Patient has had multiple admissions 08/14 to 08/24 at [facility] for cardiac arrest, 08/26 to 09/06 at for sepsis believed to be due to an infected right thigh wound and hematoma; [facility] from 09/13 - 10/12/24 due to covid-19, electrolyte derangements, Enterobacter cloacae, Klebsiella pneumonia, Klebsiella oxytocin and VR Enterococcus which were treated for complete course, also, had C. difficile colitis which was treated, had tunneled HD catheter placed on discharge on 10/12. . Patient has PT/OT/ST, Infectious disease, nephrology, and wound care consulted. She was transferred out of ICU services to medical services on 10/24/24. She is currently receiving Meropenem and Vancomycin IV for infected pressure ulcer on left buttocks. Patient is also ESRD and gets HD T, Th, 10/27/24: Hgb 6.7 received 1 unit of blood, Dr Boyd spoke with HPOA brother Deshawn, made patient DNR CCA, considering hospice, Vancomycin stopped 10/28/24 Patient moved out of ICU to [address] [place], [place] [address]U, dialysis being set up this morning, hemoglobin remains stable overnight at 9.3 10/30/24 IV Zosyn stopped, oral ATB started in the afternoon by ID, reached out to vascular they do not come to [place] willing to see patient at [facility] Interval History: 10/31/24 Discussed plan with patient's POA/brother Deshawn- instead of getting authorization for [facility] approval, going to [facility] then turning around to return to outpatient vascular appointment to evaluate fistula for potential source of infection, he is agreeable to transfer to [facility] for vascular assessment and/or removal of current fistula, patient has temporary vas cath right now. Reached out to vascular this morning Dr Fernandez in procedure, resident cannot accept, will wait to speak with her when she is out of procedure, covering provider Dr Yan and Theresa CALLES aware of plan Patient sitting up in bed, she is alert, has trouble recalling day/time etc but answer questions in general every day topics, she denies pain, chest pain, shortness of breath, fever/chills, N/V/D, appetite is still good, getting ready to receive dialysis who is at bedside Case and plan discussed with patient and bedside nurse. All questions answered. Spoke with Dr Fernandez and admitting team at [facility], accepted transfer and will assess AV fistula on , covering attending Dr Yan and STEVAN aware Adult diet Regular 24HR INTAKE/OUTPUT: Intake/Output Summary (Last 24 hours) at 10/31/2024 1241 Last data filed at 10/30/2024 1823 Gross per 24 hour Intake 1186 ml Output -- Net 1186 ml Past Medical History: Medical History[1] LABS: CBC: Recent Labs 10/29/24 0437 10/30/24 0455 10/31/24 0526 WBC 22.8* 18.2* 17.2* RBC 3.02* 2.85* 2.91* HGB 8.8* 8.3* 8.5* HCT 27.2* 26.3* 26.6* MCV 90.1 92.3 91.4 RDW 16.6* 16.6* 16.7* PLT 464* 502* 531* BMP: Recent Labs 10/29/24 0437 10/30/24 0455 10/31/24 0526 NA 143 143 143 K 3.9 4.2 4.4 CL 108* 110* 110* CO2 24 26 23 BUN 14 21 27* CREATININE 2.73* 3.52* 4.44* GLUCOSE 85 79* 73* CALCIUM 7.9* 7.7* 8.0* ANIONGAP 11 7 10 LIVER PROFILE:No results for input(s): AST, ALT, BILITOT, ALKPHOS, PROT in the last 72 hours. No lab exists for component: LABALBU PT/INR: No results for input(s): PROTIME, INR in the last 72 hours. CARDIAC ENZYMES: No results for input(s): TROPONINI in the last 72 hours. Procalcitonin: No results found for: PROCAL COVID-19 PCR: No results for input(s): COVID19 in the last 72 hours. Objective: Vitals: BP (!) 158/107 Pulse 109 Temp 36.5 C (97.7 F) (Temporal) Resp 16 Ht 1.626 m (5' 4) Wt 51 kg (112 lb 7 oz) SpO2 98% BMI 19.30 kg/m Pulse Ox: SpO2 Av.8 % Min: 98 % Max: 100 % Supplemental O2: Physical Exam Vitals and nursing note reviewed. Constitutional: Appearance: She is ill-appearing. HENT: Mouth/Throat: Mouth: Mucous membranes are moist. Eyes: Pupils: Pupils are equal, round, and reactive to light. Cardiovascular: Rate and Rhythm: Normal rate and regular rhythm. Pulmonary: Effort: Pulmonary effort is normal. Breath sounds: Normal breath sounds. Comments: Diminished, poor inspiratory effort Abdominal: General: Bowel sounds are normal. Palpations: Abdomen is soft. Musculoskeletal: General: Normal range of motion. Skin: General: Skin is warm and dry. Neurological: General: No focal deficit present. Mental Status: She is alert. Comments: Will answer questions correctly on every day topics, recalling date/time she has trouble Psychiatric: Mood and Affect: Mood normal. Behavior: Behavior normal. Medications: Scheduled PRN Scheduled Meds[2] PRN Meds[3] Continuous Continuous Meds[4] Assessment Data: (CAT1) Reviewed 3 or more notes from different specialty or health system (each=1). (CAT1) Reviewed 2 labs/studies previously ordered by me not previously counted (each=1, panels count as 1). (LOW: 2x CAT1 or independent historian MOD: 3x CAT1 or 1x CAT3 EXTENSIVE: 3x CAT1 and 1x CAT3) Acute, acute on chronic, unstable/uncontrolled chronic problems/diagnoses: Severe sepsis HAGMA Encephalopathy ESRD on HD-T, , S Acute on chronic normocytic anemia Left buttocks pressure ulcer stage 3 Severe malnutrition dysphagia Stable chronic problems affecting care, new non-acute diagnoses: Seizure disorder- on Keppra HTN HLD Debility Recent CDIFF-treated at [facility] Plan As a result of the above findings & factors, the following mgmt was pursued: - Severe sepsis is improving, thought to be related to left buttocks pressure wound that has enterobacter cloacae complex, possible source is AV fistula, vascular consult placed 10/30/24 per ID, they do not come here, discussed plans with Deshawn DE LEÓN and brother, no point in getting authorization for SNF right now until this is addressed and trying to get outpatient appointment, reaching out to vascular to update we will proceed transfer to [facility] for vascular surgery to evaluate, brother agrees this may be the less stressful option for the patient over going to SNF then trying to get outpatient vascular appointment set up and possibly needing it removed and going back to the hospital. - WBC trending down 17.2 this AM - BC negative after 8 days - Encephalopathy likely from sepsis, improving - ID following, IV Meropenem stopped 10/30/24, oral ATB started - HAGMA improving - chronic anemia, had 1 unit PRBC on 10/24/24, was 6.8 on 10/25/24 1 unit PRBC 10/26/24 Hgb 6.7 received 1 unit PRBC -Hgb 8.5 today, will continue to monitor with AM labs - ESRD T, , S- - Nephrology following - ST/PT/OT following, recommending SNF- - BP elevated, 10/26/24 added on Amlodipine has PRN BP meds with parameters, will continue to monitor - code status now DNR CCA 10/27/24, Deshawn is brother/POA - home medications resumed - am labs, replace lytes prn - PT/OT/CM/SW - delirium precautions: limit nighttime disturbances - DVT prophylaxis: SCDs and encourage ambulation Complexity: Chronic illness with mild to moderate exacerbation, progression, or side effect of tx (MOD). Acute illness with systemic symptoms (MOD). Risk: Prescription drug/IVF/colloid was initiated, discontinued, adjusted; or reviewed with decision to maintain current orders (MOD). Advance Directive: DNR-CCA Anticipated Discharge - Date - TBD - Location - transfer to [facility] then pursue SNF for rehab - Pending the following - pending acceptance Toxic drug monitoring/narrow therapeutic index drug monitoring : # Drug name : # Route administered : # Method of monitoring : Extended Emergency Contact Information Primary Emergency Contact: Gera Crystalence Mobile Relation: Brother Technical Coordinator needed? No Secondary Emergency Contact: RuggieroEdwrad Mobile Relation: Significant Other Preferred language: Cambodian Technical Coordinator needed? No Ana Boyce APRN - AGENCY TRAINER Division of Hospitalist Medicine [facility] [1] Past Medical History: Diagnosis Date Chronic kidney disease (CKD) Hemodialysis patient (CMS/HCC) (HCC) Wednesday, , Wednesday History of blood transfusion 02/27/2022 Hypertension Seizure (HCC) Developed seizure-like activity on 02/24 during hospital admission [2] amLODIPine, 5 mg, Oral, Daily chlorhexidine, , Topical, Daily collagenase, , Topical, Daily heparin, 5,000 Units, SubCUTAneous, 2 times per day levETIRAcetam, 500 mg, IntraVENous, Daily [Held by provider] sevelamer carbonate, 800 mg, Oral, TID WC sodium chloride 0.9%, 5-40 mL, IntraVENous, 2 times per day sodium chloride 0.9%, 5-40 mL, IntraCATHeter, q8h sulfamethoxazole-trimethoprim, 1 tablet, Oral, Daily [3] PRN medications: acetaminophen OR acetaminophen, acetaminophen, collagenase, dextrose, dextrose, glucagon (rDNA), glucose, heparin, heparin, heparin, heparin, hydrALAZINE, labetalol, Melatonin, naloxone, ondansetron ODT OR ondansetron, polyethylene glycol (PEG) 3350, sodium chloride, sodium chloride, sodium chloride, sodium chloride 0.9%, sodium chloride 0.9%, traMADol [4] Images from the original note were not included. Speech-Language Pathology SPEECH LANGUAGE PATHOLOGY [facility] Dysphagia Treatment Note Patient Name: Apoorva Gonzalez Evaluation Date: 10/31/2024 Date of : 1950 Admission Date: 10/22/2024 12:48 PM Age: 74 y.o. Room[facility]Bed: [facility] A Subjective Patient alert and cooperative. Seen upright in bed. Answers all basic questions with clear vocal quality. Follows all basic commands. No visitors at bedside. Spoke with CYNTHIA Smalls who cleared pt for treatment. Current Diet: Dietary Orders (From admission, onward) Start Ordered 10/30/24 1019 Adult diet Regular Diet effective now Comments: Regular/thin liquids/ok for meds Question: Diet type Answer: Regular 10/30/24 1019 10/26/24 1438 Supplement:Dinner; Nepro w/CARB Steady Until discontinued Question Answer Comment Frequency Dinner Select supplement: Nepro w/CARB Steady 10/26/24 1438 10/26/24 1438 Supplement:Breakfast, Lunch; Vanilla Magic Cup Until discontinued Question Answer Comment Frequency Breakfast Frequency Lunch Select supplement: Vanilla Magic Cup 10/26/24 1438 Oxygen: Oxygen Therapy: None (Room air) Would you dial that number on the board Pain: RN managing pain. No current complaints PPE Worn: gown, gloves Objective & Assessment Dysphagia Treatment Dysphagia Activity 1: Assess tolerance of recommended diet. Pt is now on a regular diet with thin liquids. She demonstrates improved level of alertness from initial evaluation. She has portion of breakfast tray. Eating piece of sausage. She took bites off the sausage link and demonstrated prolonged mastication with moderate right buccal pocketing/residuals. She demonstrated good oral awareness and was able to clear with additional bites of pudding and or drinks of water independently. Functional with current strategies that pt used independently. She will only need assist with set up. Plan & Recommendations Plan: Continue dysphagia POC. Possible transfer to [facility] if need surgery for infected Fistula. Recommend Regular solids and Thin liquids and meds non-oral and the following precautions: Assist with set up - Upright positioning for all PO intake - Slow rate of intake - Alternate solid and liquids D/C Recommendations: No follow up therapy recommended post discharge suspected Education Education Given: swallowing strategies, diet recommendations Given To: patient Response: verbalizes understanding/demonstrated understanding Goals Patient Stated Goal: To talk to Edward. Encounter Problems Encounter Problems (Active) Swallowing Patient will tolerate the least restrictive diet consistency to allow for safe consumption of daily meals (Progressing) Start: 10/24/24 Expected End: 11/07/24 Patient will demonstrate safe swallowing Intervention/techniques (Progressing) Start: 10/24/24 Expected End: 11/07/24 Patient will use appropriate strategies for increased oralpharyngeal swallow function (Progressing) Start: 10/24/24 Expected End: 11/07/24 Therapy Time CAREER RESOURCE SPECIALIST Individual Minutes Time In: 922 Time Out: 938 Minutes: 16 NIRU Quiroz Images from the original note were not included. [facility] Wound Care Progress Note Apoorva Gonzalez AGE: 74 y.o. GENDER: female : 1950 Subjective: HISTORY of PRESENT ILLNESS HPI Apoorva Gonzalez is a 74 y.o. female who presents for a wound care follow up. HPI: Apoorva is a 74 y.o. female who presented to the emergency department on 10/22/24 with chief complaint of AMS. Pt is resident of [place] at [facility]. Report one day of increasing weakness and AMS. She receives dialysis 5x/week Wed-Wednesday. No missed sessions. Temp 101.3F at [facility]. Hospitalized from 08/14 - 08/24 at [facility] for cardiac arrest and sepsis and again from 08/26 to 09/06 at for sepsis believed to be due to an infected right thigh wound and hematoma. Hospitalized again at [facility] from 09/13 - 10/12 due to covid-19 sepsis and electrolyte derangements. Wound Care consulted for pressure Injury coccyx and buttock Patient resting in regular bed at time of visit. Patient cooperative to wound assessment and able to slightly turn with much assistance to side for evaluation. Patient with fecal incontinence, cleansed and aide contacted and at the bedside for help with brief and incontinence pads. PAST MEDICAL HISTORY Medical History[1] PAST SURGICAL HISTORY Surgical History[2] FAMILY HISTORY Family History[3] SOCIAL HISTORY Social History[4] ALLERGIES Allergies[5] MEDICATIONS Medications Ordered Prior to Encounter[6] REVIEW OF SYSTEMS Pertinent items are noted in HPI. Objective: BP (!) 168/97 (BP Location: Right arm, Patient Position: Sitting) Pulse 99 Temp 36.7 C (98 F) (Temporal) Resp 18 Ht 5' 4 (1.626 m) Wt 114 lb (51.7 kg) SpO2 100% BMI 19.57 kg/m PHYSICAL EXAM General appearance: in no apparent distress, well developed and well nourished, in no respiratory distress and acyanotic, alert, cooperative, and moderately ill Skin: warm and dry Pulmonary: Normal effort, no respiratory distress, no cyanosis Sacrum extending to left buttock: [id number] cm. Wound bed with a mix of moderate pink tissue and moderate thinning yellow slough present. Aminah wound intact with no erythema and fragile. Improved 10/30/24 LABS CBC: Lab Results Component Value Date WBC 18.2 (H) 10/30/2024 HGB 8.3 (L) 10/30/2024 HCT 26.3 (L) 10/30/2024 MCV 92.3 10/30/2024 PLT 502 (H) 10/30/2024 BMP: Lab Results Component Value Date NA 143 10/30/2024 K 4.2 10/30/2024 CL 110 (H) 10/30/2024 CO2 26 10/30/2024 BUN 21 10/30/2024 CREATININE 3.52 (H) 10/30/2024 PT/INR: No results found for: PROTIME, INR Prealbumin: No results found for: PREALBUMIN Albumin:No components found for: LABALBU Sed Rate:No results found for: SEDRATE Micro: No components found for: BC Assessment/Plan: Nursing staff to perform dressing change: Sacrum extending to left buttock: Pressure Injury Unstageable (POA) -cleanse with NS, apply santyl followed by xeroform, cover with dry clean dressing daily and PRN. -P500 bed -waffle chair cushion -Q2hr/PRN turns -glide sheets for T&R -continence checks Q1-2 Hrs/PRN Nutritional support Wound Care to follow Recommend to follow up at [facility] Outpatient wound care center after hospital discharge. Any questions or concerns please secure chat [facility] wound/ostomy. Thank you for the consult! I personally obtained the saavedra and critical portions of the history and physical exam. I reviewed the labs, imaging studies, and electronic medical record. I reviewed the chart documentation and discussed the patient with treatment team members. I have edited the note to reflect my clinical findings and my assessment and plan. Please note, the time of this note does not reflect the time I saw this patient today, but the time of this documentaton. Portions of this note including HPI, ROS, impression/plan, and examination may have been copied forward from admission to today as to provide important historical information essential in contributing to medical decision making. Documentation has been reviewed and edited as necessary to support clinical decision making for today's visit and to reflect my own independent evaluation of this patient. Decision making for today's visit and to reflect my own independent evaluation of this patient. [1] Past Medical History: Diagnosis Date Chronic kidney disease (CKD) Hemodialysis patient (CMS/HCC) (HCC) Wednesday, , Wednesday History of blood transfusion 02/27/2022 Hypertension Seizure (HCC) Developed seizure-like activity on 02/24 during hospital admission [2] Past Surgical History: Procedure Laterality Date AV FISTULA PLACEMENT Left 08/07/2022 COLONOSCOPY N/A 01/25/2024 Performed by Chrissy Gilman MD at [facility] ENDOSCOPY IR CVC TUNNELED DIALYSIS CATHETER PLACEMENT 02/27/2022 IR CVC TUNNELED CATHETER PLACEMENT 02/27/2022 Candis Andrade MD [facility] SPECIAL PROCEDURES IR EMBOLIZATION 01/24/2024 IR EMBOLIZATION 01/24/2024 Jovan Glynn MD [facility] SPECIAL PROCEDURES [3] Family History Problem Relation Name Age of Onset Dementia Mother Stroke Father Prostate cancer Brother 69 Breast cancer Cousin 32 Stomach cancer Mother's Sister 70 [4] Social History Tobacco Use Smoking status: Never Smokeless tobacco: Never Vaping Use Vaping status: Never Used Substance Use Topics Alcohol use: Yes Alcohol/week: 2.0 standard drinks of alcohol Types: 2 Glasses of wine per week Comment: weekly Drug use: Never [5] No Known Allergies [6] No current facility-administered medications on file prior to encounter. Current Outpatient Medications on File Prior to Encounter Medication Sig Dispense Refill acetaminophen (Tylenol) 325 MG tablet Take 650 mg by mouth every 6 hours as needed. atorvastatin (Lipitor) 40 MG tablet Take 1 tablet (40 mg) by mouth Nightly. 30 tablet 11 B complex-vitamin C-folic acid (Nephro-Coleen) 0.8 MG tablet Take 0.8 mg by mouth daily. cholecalciferol (Vitamin D-3) 125 MCG (5000 UT) capsule Take 5,000 Units by mouth daily. cyclobenzaprine (Flexeril) 5 MG tablet Take 1 tablet (5 mg) by mouth 3 times daily as needed for muscle spasms for up to 10 days. levETIRAcetam (Keppra) 500 MG tablet Take 1 tablet (500 mg) by mouth daily. 30 tablet 1 meclizine (Antivert) 25 MG tablet Take 1 tablet (25 mg) by mouth 3 times daily as needed for dizziness for up to 10 doses. 10 tablet 0 sevelamer (Renagel) 800 MG tablet Take 800 mg by mouth 3 times daily (with meals). Swallow tablet whole; do not crush, break, or chew. Thiamine HCl (vitamin B-1) 250 MG tablet Take 250 mg by mouth daily. calcium acetate (Phoslo) 667 MG tablet Take 1 tablet by mouth in the morning and 1 tablet at noon and 1 tablet in the evening. Take with meals. magnesium hydroxide (Milk of Magnesia) 2400 MG/10ML suspension suspension Take 30 mL by mouth Daily as needed for constipation. Spiritual Care Note [facility] Palliative Care Patient Name:Apoorva Gonzalez Chief Complaint: Chief Complaint Patient presents with Altered Mental Status Pt came from shelter. Squad was called for weakness and altered mental status. Pt is not diabetic. Gcs 14 due to confusion a&ox2. Pt bgl was 99. Pt fistula is in left arm . Reason for visit: Follow Up Services Provided To:patient Background and visit note: Follow up with patient. She is feeling better. She did take a second to respond during the visit. Provided spiritual supportive presence. Will follow up. Is there spiritual distress? NO Comment: Interventions: spiritual support provided and emotional support provided. Care Plan: connect to higher power. Follow Up: PRN and when patient is able. Debriefed: with hydraulic plumber helper team. Gretchen Adames 10/30/24 Consult acknowledged. Concern for infected LUE AVG. The patient will need transferred to [facility] for any vascular surgical evaluation/procedure as we have no operative time available to us at [facility]. Ana Boyce, PARK-AGENCY TRAINER contacted. Raffy Fernandez MD Vascular Surgery Hospitalist Progress Note 10/30/2024 Subjective: Admit Date: 10/22/2024 PCP: Roxie Spain Room#: B2-258/B2-258 A BRIEF HOSPITAL COURSE: Apoorva Gonzalez is a 74 year old female who presented 10/22 from [facility] due to altered mental status. In the ED was noted to be febrile 101.3 at [facility], tachycardic, tachypneic and with elevated WBC. Received IV fluid bolus, antibiotics. Admitted to [facility] for further work up. Critical care consulted the following day as patient remained febrile, tachycardic and tachypneic. WBC count also continuing to increase with worsening anemia. Patient has had multiple admissions 08/14 to 08/24 at [facility] for cardiac arrest, 08/26 to 09/06 at for sepsis believed to be due to an infected right thigh wound and hematoma; [facility] from 09/13 - 10/12/24 due to covid-19, electrolyte derangements, Enterobacter cloacae, Klebsiella pneumonia, Klebsiella oxytocin and VR Enterococcus which were treated for complete course, also, had C. difficile colitis which was treated, had tunneled HD catheter placed on discharge on 10/12. . Patient has PT/OT/ST, Infectious disease, nephrology, and wound care consulted. She was transferred out of ICU services to medical services on 10/24/24. She is currently receiving Meropenem and Vancomycin IV for infected pressure ulcer on left buttocks. Patient is also ESRD and gets HD T, Th, 10/27/24: Hgb 6.7 received 1 unit of blood, Dr Boyd spoke with HPOA brother Deshawn, made patient DNR CCA, considering hospice, Vancomycin stopped 10/28/24 Patient moved out of ICU to [address] [place], [place] [address]U, dialysis being set up this morning, hemoglobin remains stable overnight at 9.3, Interval History: 10/30/24 Patient sitting up in bed, more alert today, appetite is still good, ST cleared for regular diet thin liquids, patient denies pain, fever/chills, denies shortness of breath, chest pain, denies N/V/D, due for dialysis tomorrow, PT/OT recommending SNF, per CRISTO brother interested in palliative when she returns to the facility, let nursing know patient would like to get up in recliner to look out the window Case and plan discussed with patient and bedside nurse. All questions answered. Adult diet Regular 24HR INTAKE/OUTPUT: No intake or output data in the 24 hours ending 10/30/24 1159 Past Medical History: Medical History[1] LABS: CBC: Recent Labs 10/28/24 0515 10/29/24 0437 10/30/24 0455 WBC 26.6* 22.8* 18.2* RBC 3.15* 3.02* 2.85* HGB 9.3* 8.8* 8.3* HCT 28.0* 27.2* 26.3* MCV 88.9 90.1 92.3 RDW 16.4* 16.6* 16.6* PLT 460* 464* 502* BMP: Recent Labs 10/28/24 0515 10/29/24 0437 10/30/24 0455 NA 144 143 143 K 3.9 3.9 4.2 CL 109* 108* 110* CO2 24 24 26 BUN 24* 14 21 CREATININE 3.83* 2.73* 3.52* GLUCOSE 87 85 79* CALCIUM 8.0* 7.9* 7.7* ANIONGAP 11 11 7 LIVER PROFILE:No results for input(s): AST, ALT, BILITOT, ALKPHOS, PROT in the last 72 hours. No lab exists for component: LABALBU PT/INR: No results for input(s): PROTIME, INR in the last 72 hours. CARDIAC ENZYMES: No results for input(s): TROPONINI in the last 72 hours. Procalcitonin: No results found for: PROCAL COVID-19 PCR: No results for input(s): COVID19 in the last 72 hours. Objective: Vitals: BP 151/86 (BP Location: Right arm, Patient Position: Sitting) Pulse 104 Temp 36.8 C (98.2 F) (Temporal) Resp 18 Ht 1.626 m (5' 4) Wt 51.7 kg (114 lb) SpO2 100% BMI 19.57 kg/m Pulse Ox: SpO2 Av.7 % Min: 97 % Max: 100 % Supplemental O2: Physical Exam Vitals and nursing note reviewed. Constitutional: Appearance: She is ill-appearing. HENT: Mouth/Throat: Mouth: Mucous membranes are moist. Eyes: Pupils: Pupils are equal, round, and reactive to light. Cardiovascular: Rate and Rhythm: Normal rate and regular rhythm. Comments: Vas cath in left chest Pulmonary: Effort: Pulmonary effort is normal. Breath sounds: Normal breath sounds. Comments: Diminished, poor inspiratory effort Abdominal: General: Bowel sounds are normal. Palpations: Abdomen is soft. Musculoskeletal: General: Normal range of motion. Skin: General: Skin is warm and dry. Neurological: General: No focal deficit present. Mental Status: She is alert. Comments: Is more alert and talkative today, can answer questions, lost sense of time being in the hospital frequently, we discussed date/time/place etc Psychiatric: Mood and Affect: Mood normal. Behavior: Behavior normal. Medications: Scheduled PRN Scheduled Meds[2] PRN Meds[3] Continuous Continuous Meds[4] Assessment Data: (CAT1) Reviewed 3 or more notes from different specialty or health system (each=1). (CAT1) Reviewed 2 labs/studies previously ordered by me not previously counted (each=1, panels count as 1). (LOW: 2x CAT1 or independent historian MOD: 3x CAT1 or 1x CAT3 EXTENSIVE: 3x CAT1 and 1x CAT3) Acute, acute on chronic, unstable/uncontrolled chronic problems/diagnoses: Severe sepsis HAGMA Encephalopathy ESRD on HD-T, Th, S Acute on chronic normocytic anemia Left buttocks pressure ulcer stage 3 Severe malnutrition dysphagia Stable chronic problems affecting care, new non-acute diagnoses: Seizure disorder- on Keppra HTN HLD Debility Recent CDIFF-treated at [facility] Plan As a result of the above findings & factors, the following mgmt was pursued: - Severe sepsis is improving, likely related to left buttocks pressure wound that has enterobacter cloacae complex, WBC trending down to 18.2 - BC negative after 7 days - Encephalopathy likely from sepsis, much improved - ID following, continue IV Meropenem-Vancomycin discontinued 10/26/24 - HAGMA improving - chronic anemia, had 1 unit PRBC on 10/24/24, was 6.8 on 10/25/24 1 unit PRBC 10/26/24 Hgb 6.7 received 1 unit PRBC -Hgb 8.3 today, will continue to monitor with AM labs - ESRD T, Th, S- - Nephrology following - ST/PT/OT following, recommending SNF, will go back to [facility], palliative consult will be placed when she returns back but declining hospice at this time - BP elevated, 10/26/24 added on Amlodipine has PRN BP meds with parameters, elevated during dialysis, will continue to monitor - code status now DNR CCA 10/27/24, Deshawn is brother/POA - home medications resumed - am labs, replace lytes prn - PT/OT/CM/SW - delirium precautions: limit nighttime disturbances - DVT prophylaxis: SCDs and encourage ambulation Complexity: Chronic illness with mild to moderate exacerbation, progression, or side effect of tx (MOD). Acute illness with systemic symptoms (MOD). Risk: Prescription drug/IVF/colloid was initiated, discontinued, adjusted; or reviewed with decision to maintain current orders (MOD). Advance Directive: DNR-CCA Anticipated Discharge - Date - TBD - Location - Skilled Facility - Pending the following - ID recs/authorization for SNF Toxic drug monitoring/narrow therapeutic index drug monitoring : # Drug name : # Route administered : # Method of monitoring : Extended Emergency Contact Information Primary Emergency Contact: Deshawn Crystal Mobile Relation: Brother Technical Coordinator needed? No Secondary Emergency Contact: Edward Ruggiero Mobile Relation: Significant Other Preferred language: Cambodian Technical Coordinator needed? No PARK Ureña CNP Division of Hospitalist Medicine [facility] [1] Past Medical History: Diagnosis Date Chronic kidney disease (CKD) Hemodialysis patient (CMS/HCC) (HCC) Wednesday, , Wednesday History of blood transfusion 02/27/2022 Hypertension Seizure (HCC) Developed seizure-like activity on 02/24 during hospital admission [2] amLODIPine, 5 mg, Oral, Daily chlorhexidine, , Topical, Daily collagenase, , Topical, Daily heparin, 5,000 Units, SubCUTAneous, 2 times per day levETIRAcetam, 500 mg, IntraVENous, Daily meropenem, 1,000 mg, IntraVENous, q12h [Held by provider] sevelamer carbonate, 800 mg, Oral, TID WC sodium chloride 0.9%, 5-40 mL, IntraVENous, 2 times per day sodium chloride 0.9%, 5-40 mL, IntraCATHeter, q8h [3] PRN medications: acetaminophen OR acetaminophen, acetaminophen, collagenase, dextrose, dextrose, glucagon (rDNA), glucose, heparin, heparin, heparin, heparin, hydrALAZINE, labetalol, Melatonin, ondansetron ODT OR ondansetron, polyethylene glycol (PEG) 3350, sodium chloride, sodium chloride, sodium chloride, sodium chloride 0.9%, sodium chloride 0.9% [4] [facility] - Infectious Diseases Attending Progress Note Subjective: No acute events- afebrile and mentation back to baseline- denies GALVIN, N/V, pain. Feels better overall and wants to get home. Objective: Vitals: Patient Vitals for the past 24 hrs: BP Temp Temp src Pulse Resp SpO2 Weight 10/30/24 1119 151/86 36.8 C (98.2 F) Temporal 104 18 100 % -- 10/30/24 0743 152/88 37.2 C (99 F) Temporal 98 18 100 % -- 10/30/24 0456 -- -- -- -- -- -- 51.7 kg (114 lb) 10/30/24 0436 (!) 166/97 37.2 C (99 F) Temporal 100 18 98 % -- 10/29/24 2342 144/88 37.4 C (99.3 F) Temporal 106 16 99 % -- 10/29/24 2100 -- -- -- 101 -- -- -- 10/29/24 2000 (!) 161/96 37.4 C (99.3 F) Temporal 101 16 98 % -- 10/29/24 1733 (!) 170/96 37.2 C (99 F) Temporal 108 16 97 % -- Physical Exam Vitals reviewed. Constitutional: General: She is not in acute distress. Appearance: She is ill-appearing (chronically but more alert and answers appropriately). Eyes: Extraocular Movements: Extraocular movements intact. Cardiovascular: Rate and Rhythm: Regular rhythm. Tachycardia present. Heart sounds: Normal heart sounds. No murmur heard. Pulmonary: Effort: No respiratory distress. Breath sounds: Normal breath sounds. No wheezing or rales. Abdominal: General: There is no distension. Palpations: Abdomen is soft. Musculoskeletal: Right lower leg: Edema (mild with induraiton but lateral incision is healing, nontender) present. Comments: Oxxlusive dressing to L AVF, nontender, pulses palpable Skin: General: Skin is warm. Coloration: Skin is not jaundiced. Findings: No erythema. Neurological: General: No focal deficit present. Mental Status: She is alert and oriented to person, place, and time. Motor: No weakness. Psychiatric: Thought Content: Thought content normal. Labs: Lab Results Component Value Date/Time NA 143 10/30/20245 K 4.2 10/30/2024 0455 CL 110 (H) 10/30/2024 0455 CO2 26 10/30/2024 0455 BUN 21 10/30/2024 0455 CREATININE 3.52 (H) 10/30/2024454 GLUCOSE 79 (L) 10/30/2024 0455 CALCIUM 7.7 (L) 10/30/2024 0455 PROT 5.6 (L) 10/24/2024 0649 BILITOT 0.5 10/24/2024 0649 ALKPHOS 150 10/24/2024 0649 AST 28 10/24/2024 0649 ALT <6 10/24/2024 0649 PROCAL 68.03 (H) 10/05/2024 1419 PROCAL 19.25 (H) 09/15/2024 0308 PROCAL 76.25 (H) 09/14/2024 0541 Lab Results Component Value Date/Time WBC 18.2 (H) 10/30/2024 045 HGB 8.3 (L) 10/30/2024 045 HGB 9.1 10/05/2024 1419 HCT 26.3 (L) 10/30/2024 0455 PLT 502 (H) 10/30/2024 045 LYMPHOPCT 4 (L) 10/30/2024454 MONOPCT 3 (L) 10/30/2024454 BASOPCT 1 10/28/2024 0515 NEUTROABS 16.9 (H) 10/22/2024 1411 Micro: Reviewed LUE AVF wound cx: E cloacae BC: neg Lines: Vas cath Radiography/Echo/Other: reviewed Antimicrobials, Start/End Dates: Vancomycin dc'd Cefepime to Meropenem Impression: 74 F admitted with fever, change MS(confusion)from ECF: Severe sepsis. Improving, WBC trending down Infected left buttock pressure ulcer due to enterobacter cloacae complex. Photo on Media tab- does not appear grossly infected, fibrinous base. R/o infected left arm fistula with E cloacae as well. Consider Vascular surgery in case needs to be excised. Encephalopathy- worse today( compared to previous [facility] admission) Leukocytosis. ESRD, on HD. Recent h/o Enterobacter cloacae/ Kleb pneumo/ Kleb oxytoca/ VR-Enterococcus casseliflavus BSI. Possble due to #3, instead of infected hematoma previously assumed and treated for in September 2024. Recent h/o C diff colitis. Overall back to baseline. Improved. Plan: Given clinical response, reasonable to de-escalate to renal dosed Bactrim Ds and complete treatment on 11/13. She can follow up as outpatient with Vascular Surgery to assess her L AVF( does not look grossly infected now). DC planning back to ECF given debility form multiple hospitalizations. Images from the original note were not included. Speech-Language Pathology SPEECH LANGUAGE PATHOLOGY [facility] Dysphagia Treatment Note Patient Name: Apoorva Gonzalez Evaluation Date: 10/30/2024 Date of : 1950 Admission Date: 10/22/2024 12:48 PM Age: 74 y.o. Room/Bed: [facility]258 A Subjective Patient alert and cooperative. Seen upright in bed. Answers all basic questions with clear, strong vocal quality. Follows all basic commands. No visitors at bedside. Spoke with RNJessica, who cleared pt for treatment. Current Diet: Dietary Orders (From admission, onward) Start Ordered 10/26/24 1438 Supplement:Dinner; Nepro w/CARB Steady Until discontinued Question Answer Comment Frequency Dinner Select supplement: Nepro w/CARB Steady 10/26/24 1438 10/26/24 1438 Supplement:Breakfast, Lunch; Vanilla Magic Cup Until discontinued Question Answer Comment Frequency Breakfast Frequency Lunch Select supplement: Vanilla Magic Cup 10/26/24 1438 10/25/24 1441 Adult diet Dysphagia - Soft and Bite Sized Diet effective now Question: Diet type Answer: Dysphagia - Soft and Bite Sized 10/25/24 1440 Aspiration Precautions: - Upright positioning for all PO intake - Small bites/sips - PO only when fully alert - Alternate solid and liquids Oxygen: Oxygen Therapy: None (Room air) Pain: Pt denies any current pain. PPE Worn: gown, gloves Objective & Assessment Activity 1: Diet tolerance Pt agreeable to PO trials this date, more attentive & cooperative. The patient was adjusted upright in bed, self-fed. Easy to chew & regular textures trialed with the patient this date. Mastication was slightly prolonged but completed. Pt utilized liquid rinse independently every 1-2 bites of food. Achieved full bolus clearance. No overt s/s of aspiration/penetration observed with regular textures or thin liquids. Vocal quality remained clear. Appropriate for diet upgrade. Plan & Recommendations Plan: Continue acute CAREER RESOURCE SPECIALIST therapy per initial plan of care and established goals. Recommend Regular solids and Thin liquids and meds as tolerated and the following precautions: - Upright positioning for all PO intake - Slow rate of intake - Small bites/sips - Alternate solid and liquids D/C Recommendations: to be determined Education Education Given: swallowing strategies, diet recommendations Given To: patient and RN Response: verbalizes understanding Goals Patient Stated Goal: Can you get me a nice cold beer? That sounds good Encounter Problems Encounter Problems (Active) Swallowing Patient will tolerate the least restrictive diet consistency to allow for safe consumption of daily meals (Progressing) Start: 10/24/24 Expected End: 11/07/24 Patient will demonstrate safe swallowing Intervention/techniques (Progressing) Start: 10/24/24 Expected End: 11/07/24 Patient will use appropriate strategies for increased oralpharyngeal swallow function (Progressing) Start: 10/24/24 Expected End: 11/07/24 Therapy Time CAREER RESOURCE SPECIALIST Individual Minutes Time In: 939 Time Out: 954 Minutes: 15 Christine Barnes CCC-CAREER RESOURCE SPECIALIST Images from the original note were not included. Palliative Care Progress Note Chief Complaint: Apoorva Gonzalez is a 74 y.o. female with chief complaint of fever. Palliative Care is signing off, please re-consult if needed. (add SIGNOFFTRANSITION dotphrase below) Assessment/Plan Goals of care Apoorva Gonzalez maintains capacity for medical decision-making -legal surrogate decision maker is HCPOA, Brother Deshawn Crystal ( ) Alternate is s/o Edward Ruggiero [phone]) -HCPOA documented to have been filled out at facility recently-->copy was emailed to me today from [facility]. Faxed to medical records to be scanned into chart. -Goals of care include-->1)CONTINUE ATBX 2)RETURN TO FACILITY 3)PALLIATIVE REFERRAL PATIENT NOT REDY FOR HOSPICE AT THIS TIME. Sepsis -Recent admission at [facility] for sepsis, Cdiff. -Had central line replaced and noted that IV ATBX course will be finished out PO at facility. -Monitor for s/s repeat infection, continued decline, patient is hospice appropriate, however -Monitor. Acute encephalopathy -Improved since last seen. -Monitor. Dysphagia -Patient now cleared for regular diet after being seen by CAREER RESOURCE SPECIALIST -Monitor. Debility Wounds -ongoing, 2/2 chronically ill and long hospitalizations recently. -This is her 5th admission over the last year. -Noted WCB at baseline at facility. -PT/OT-->recommending SNF -Planning return to facility at DC -Monitor. Hx Seizures -Keppra 500 mg IVPB continued. -Monitor. Hx ESRD -Dialysis patient, nephrology managing. -Noted that tunneled like previously inserted last admission (ACH-->10-13) -Avoid nephrotoxic medications. -Renally dose medications Hx CP arrest --->while at [facility]. Palliative Care Encounter -Code Status: DNR-CCA, DNI - will continue to follow for ongoing monitoring of progression of Dyspnea and Pain as well as for appropriateness for hospice care due to ESRD Discharge planning: Per primary team. Palliative care signing off. Patient meets criteria for general inpatient hospice care: No Palliative Care IDT members involved: None Discussed the plan of care with the other interdisciplinary team (IDT) members of the Palliative Care and Hospice teams and Patient, Family, and Primary Attending. Subjective: Subjective/Events Apoorva Gonzalez is a 74 y.o. female seen today, in bed. She is largely improved. Noted that she is planned dc in coming days back to facility. CALI. We are signing off. Patient confirmed DNR-CCA today. Discussed update and plans for dc with brother. I had a conversation with patient today around chronic issues as well as hospice conversation. Noted that she is not ready for hospice enrollment at this time. Brother is worried about her and her chronic illnesses. Asking for CM phone call today for assistance with medicaid planning?? Questions answered, concerns addressed, emotional support provided. Palliative Care Assessments: Goals of care: Continue Current Management, Live Longer, extend life as much as possible, Strengthening Relationships, and Support for Family/Caregiver Advanced Directives: Health Care Power of Rotary Helper, DNR Functional Assessment: PPS 50% mainly sit/lie; can't do any work/extensive disease; considerable assistance; normal or reduced intake; full LOC or confusion Prognosis: depends upon goals of care Spiritual Assessment: No spiritual distress identified Bereavement and Grief: To Be Determined ROS: See palliative care ROS/ESAS below; Detail ROS unable to be obtained due to patient's mental status Chester Symptom Assessment Score Chester Score Pain Score (if non-verbal, add .FLACC below) 0 Tiredness Score 0 Nausea Score 0 Depression Score 0 Anxiety Score 0 Drowsiness Score 0 Anorexia Score (0= eating well, 10= not eating) 5 Wellbeing Score (10= worst sense of well-being) 4 Constipation 0 Dyspnea Score (0= no shortness of breath) 0 Family Meeting: Participants: patient and extended family Family meeting was held to discuss:Goals of Care, Symptom Management, and Advanced Care Planning Objective: BP 152/88 (BP Location: Right arm, Patient Position: Lying) Pulse 98 Temp 37.2 C (99 F) (Temporal) Resp 18 Ht 5' 4 (1.626 m) Wt 114 lb (51.7 kg) SpO2 100% BMI 19.57 kg/m Physical Exam Vitals and nursing note reviewed. Constitutional: General: She is sleeping. She is not in acute distress. Appearance: She is underweight. She is ill-appearing. Comments: Chronically ill appearing woman, lying in bed. Awake and alert Central line x2 noted L chest HENT: Head: Normocephalic and atraumatic. Nose: Nose normal. Mouth/Throat: Mouth: Mucous membranes are moist. Pharynx: Oropharynx is clear. Eyes: General: Right eye: No discharge. Left eye: No discharge. Extraocular Movements: Extraocular movements intact. Pupils: Pupils are equal, round, and reactive to light. Cardiovascular: Rate and Rhythm: Normal rate and regular rhythm. Pulses: Normal pulses. Pulmonary: Effort: Pulmonary effort is normal. Breath sounds: Normal breath sounds. Abdominal: General: There is no distension. Palpations: Abdomen is soft. Tenderness: There is no abdominal tenderness. Musculoskeletal: Right lower leg: No edema. Left lower leg: No edema. Skin: General: Skin is warm and dry. Capillary Refill: Capillary refill takes less than 2 seconds. Neurological: Mental Status: She is oriented to person, place, and time. Mental status is at baseline. Psychiatric: Mood and Affect: Mood normal. Behavior: Behavior normal. Thought Content: Thought content normal. Judgment: Judgment normal. Medication information: 24-hour PRN meds received: glucose oral gel 15 g x2, hydralazine 10 mg x1, labetalol 10 mg IV x1 Results/Verification of Data Review Objective data reviewed (must include dates reviewed for labs, imaging reports and other specialty notes): BMP, CBC 10/30/24 Palliative note from -10/30/24 Data in Support of Terminal Illness: Is patient hospice appropriate? Eligible, but not consistent with GO at this time Apoorva Gonzalez has been seen in consultation by [facility] Palliative Care during their admission to [facility]. They currently have no uncontrolled symptoms and have established goals of care and we have signed off of their case. The patient has established follow-up with palliative care team and PCP. PARK Prajapati CNP Images from the original note were not included. PHYSICAL THERAPY [facility] Treatment Note Name/MRN: Apoorva Gonzalez ([id number]) Date of : 1950 Age: 74 y.o. Room/Bed: [facility]258/[facility]258 A Visit #: 2 out of 5 Discharge Recommendation: [facility] Facility Equipment Needed: No Assessment Pt continues to make poor overall progress towards established therapy goals this date. Remains limited by pain, weakness and decreased tolerance to activity. Pt completed bed mobility at Mod Ax1, Dynamic sitting balance at EOB completed at Min/Max Ax1. Limited return of cues noted. Pt unwilling to attempt STS transfers at this time. Vitals noted in subjective. Pt will continue to benefit from skilled therapy services during acute medical stay to improve upon presenting deficits prior to discharge to SNF. Subjective Pt agreeable to PT session. RN cleared pt for session. Vitals BP supine post EOB sitting 174/102 Pain: Mclain-Guerra Pain Ratin = Hurts whole lot Pain Location: all over Medical Precautions: Contact Proper PPE donned/doffed in accordance with facility standards. Fall Risk: Landers Fall Risk Score: 75 (High Risk) Precautions/Restrictions: Fall Precautions Overall Cognitive Status: Exceptions - Following commands: follows one step commands with increased time, follows one step commands with repetition, follows multi-step commands with increased time, and follows multi-step commands with repetition - Attention span: difficulty attending to directions - Memory: decreased recall of recent events and decreased short term memory - Safety judgement: decreased awareness of need for assistance and decreased awareness of need for safety - Problem solving: assistance required to generate solutions, assistance required to implement solutions, assistance required to identify errors made, and assistance required to correct errors made - Insights: not aware of deficits - Initiation: requires cues for all - Sequencing: requires cues for all Overall Orientation Status: Oriented to Person Family/Caregiver Present: none Objective Bed Mobility Supine to sit: Mod Assist Sit to supine: Mod Assist Rolling to right: Mod Assist Rolling to left: Mod Assist Scooting: Mod Assist Mod Ax1 for all bed mobility required. Hand over hand cues for positioning, sequencing, body mechanics and pacing for self assistance provided. Limited return noted d/t mild agitation. Pt was able to tolerate sitting EOB ~9 minutes for seated balance training with reaching outside ASTON, dynamic weight shifting and maintenance of erect trunk posture following cues for compensation. Min/Max Ax1 required d/t retro LOB and fatigue. Transfers/Mobility Pt unwilling to attempt transfers at this time. Pt upset stating, Sitting here has ruined my entire day. I don't want to do anything else. Let me lay down. Balance During Session: Posture: poor Sitting - Static: Min Assist, Mod Assist Sitting - Dynamic: Min Assist, Max Assist Standing - Static: NT Standing - Dynamic: NT Plan Continue acute PT per plan of care. Safety/Education Safety Safety Devices in place: All fall risk precautions in place, call light within reach, left in bed, bed alarm in place, gait belt, patient at risk for falls, and nurse notified Restraints: N/A Education Education Given To: patient Education Provided: PT Role, PT Goals, Plan of Care, ADL Adaptive Strategies, Discharge Recommendations, and Benefits of Increasing Activity Education Method: Verbal, Demonstration, and Teach Back Barriers to Learning: Cognition Education Outcome: Verbalized Understanding, Unable to Demonstrate, and Continued Education Needed Outcome Measures AM-PAC AM-PAC Inpatient Mobility Raw Score (No Stairs) : 7 JH-HLM -HLM Score: Sat at edge of bed Goals Patient Stated Goal: None stated Encounter Problems Encounter Problems (Active) Balance Patient will maintain dynamic sitting balance for 8 minutes with min assist in order to demonstrate improved postural control and prepare for out of bed mobility. (Progressing) Start: 10/24/24 Expected End: 10/31/24 Exercise Patient will complete lower extremity exercises for 1-2 sets / 5-10 reps in order to improve strength and activity tolerance for mobility. (Not Addressed) Start: 10/24/24 Expected End: 10/31/24 Mobility Patient will ambulate 5 feet with mod assist and least restrictive device in order to improve safety and independence with mobility. (Not Addressed) Start: 10/24/24 Expected End: 10/31/24 Transfers Patient will perform bed mobility with min assist in order to improve independence and prepare for out of bed mobility. (Progressing) Start: 10/24/24 Expected End: 10/31/24 Patient will complete sit to stand transfer with max assist to LRAD in order to improve safety and prepare for out of bed mobility. (Not Addressed) Start: 10/24/24 Expected End: 10/31/24 Therapy Time Individual Co-treatment Time In 0830 Time Out 0840 Minutes 10 Timed Code Treatment Minutes: 10 Minutes (ther act x1) Julian Lerner PT Hospitalist Progress Note 10/29/2024 Subjective: Admit Date: 10/22/2024 PCP: Roxie Spain Room#: [id number] A BRIEF HOSPITAL COURSE: Apoorva Gonzalez is a 74 year old female who presented 10/22 from SNF due to altered mental status. In the ED was noted to be febrile 101.3 at SNF, tachycardic, tachypneic and with elevated WBC. Received IV fluid bolus, antibiotics. Admitted to [facility] for further work up. Critical care consulted the following day as patient remained febrile, tachycardic and tachypneic. WBC count also continuing to increase with worsening anemia. Patient has had multiple admissions 08/14 to 08/24 at [facility] for cardiac arrest, 08/26 to 09/06 at for sepsis believed to be due to an infected right thigh wound and hematoma; ACH from 09/13 - 10/12/24 due to covid-19, electrolyte derangements, Enterobacter cloacae, Klebsiella pneumonia, Klebsiella oxytocin and VR Enterococcus which were treated for complete course, also, had C. difficile colitis which was treated, had tunneled HD catheter placed on discharge on 10/12. . Patient has PT/OT/ST, Infectious disease, nephrology, and wound care consulted. She was transferred out of ICU services to medical services on 10/24/24. She is currently receiving Meropenem and Vancomycin IV for infected pressure ulcer on left buttocks. Patient is also ESRD and gets HD T, Th, 10/27/24: Hgb 6.7 received 1 unit of blood, Dr Boyd spoke with HPOA brother Deshawn, made patient DNR CCA, considering hospice, Vancomycin stopped 10/28/24 [facility] dialysis being set up this morning, hemoglobin remains stable overnight at 9.3, Interval History: 10/29/24 patient sitting upright in bed just finished breakfast lights are off, patient appears cold got her a warm blanket, patient had no complaints of overall pain denied chest pain or shortness of breath, fever/chills, nausea, reports her appetite is fine Case and plan discussed with patient and bedside nurse. All questions answered. Adult diet Dysphagia - Soft and Bite Sized 24HR INTAKE/OUTPUT: Intake/Output Summary (Last 24 hours) at 10/29/2024 1121 Last data filed at 10/28/2024 2311 Gross per 24 hour Intake 544.1 ml Output -- Net 544.1 ml Past Medical History: Medical History[1] LABS: CBC: Recent Labs 10/27/24 0339 10/27/24 1406 10/28/24 0515 10/29/24 0437 WBC 24.7* -- 26.6* 22.8* RBC 2.28* -- 3.15* 3.02* HGB 6.7* 9.5* 9.3* 8.8* HCT 20.8* 29.4* 28.0* 27.2* MCV 91.2 -- 88.9 90.1 RDW 16.2* -- 16.4* 16.6* PLT 390 -- 460* 464* BMP: Recent Labs 10/27/24 0339 10/28/24 0515 10/29/24 0437 NA 143 144 143 K 3.6 3.9 3.9 CL 108* 109* 108* CO2 27 24 24 BUN 13 24* 14 CREATININE 2.93* 3.83* 2.73* GLUCOSE 104 87 85 CALCIUM 7.9* 8.0* 7.9* ANIONGAP 8 11 11 LIVER PROFILE:No results for input(s): AST, ALT, BILITOT, ALKPHOS, PROT in the last 72 hours. No lab exists for component: LABALBU PT/INR: No results for input(s): PROTIME, INR in the last 72 hours. CARDIAC ENZYMES: No results for input(s): TROPONINI in the last 72 hours. Procalcitonin: No results found for: PROCAL COVID-19 PCR: No results for input(s): COVID19 in the last 72 hours. Objective: Vitals: BP (!) 186/101 (BP Location: Right arm, Patient Position: Lying) Pulse 109 Temp 36.9 C (98.5 F) (Temporal) Resp 24 Ht 1.626 m (5' 4) Wt 50 kg (110 lb 3.7 oz) SpO2 100% BMI 18.92 kg/m Pulse Ox: SpO2 Av.5 % Min: 97 % Max: 100 % Supplemental O2: Physical Exam Vitals reviewed. Constitutional: Appearance: Normal appearance. She is ill-appearing. HENT: Mouth/Throat: Mouth: Mucous membranes are moist. Eyes: Extraocular Movements: Extraocular movements intact. Pupils: Pupils are equal, round, and reactive to light. Cardiovascular: Rate and Rhythm: Tachycardia present. Pulmonary: Effort: Pulmonary effort is normal. Breath sounds: Normal breath sounds. Abdominal: General: Bowel sounds are normal. Palpations: Abdomen is soft. Musculoskeletal: General: Normal range of motion. Right lower leg: No edema. Left lower leg: No edema. Skin: General: Skin is warm and dry. Neurological: General: No focal deficit present. Mental Status: She is alert. Comments: Will answer some questions appropriately, sometimes she does not want to talk Psychiatric: Mood and Affect: Mood normal. Behavior: Behavior normal. Medications: Scheduled PRN Scheduled Meds[2] PRN Meds[3] Continuous Continuous Meds[4] Assessment Data: (CAT1) Reviewed 1 notes from different specialty or health system (each=1). (CAT1) Reviewed 2 labs/studies previously ordered by me not previously counted (each=1, panels count as 1). (LOW: 2x CAT1 or independent historian MOD: 3x CAT1 or 1x CAT3 EXTENSIVE: 3x CAT1 and 1x CAT3) Acute, acute on chronic, unstable/uncontrolled chronic problems/diagnoses: Severe sepsis HAGMA Encephalopathy ESRD on HD-T, , S Acute on chronic normocytic anemia Left buttocks pressure ulcer stage 3 Severe malnutrition dysphagia Stable chronic problems affecting care, new non-acute diagnoses: Seizure disorder- on Keppra HTN HLD Debility Recent CDIFF-treated at [facility] Plan As a result of the above findings & factors, the following mgmt was pursued: - Severe sepsis is improving, likely related to left buttocks pressure wound that has enterobacter cloacae complex, WBC trending down some to 24.7 - BC negative after 6 days - Encephalopathy likely from sepsis, improving, consider versus more sometimes does not want to talk - ID following, continue IV Meropenem-Vancomycin discontinued yesterday afternoon 10/26/24 - HAGMA improving - chronic anemia, had 1 unit PRBC on 10/24/24, was 6.8 on 10/25/24 1 unit PRBC 10/26/24 Hgb 6.7 received 1 unit PRBC -Hgb 8.8 today, will continue to monitor with AM labs - ESRD T, Th, S- - Nephrology following - ST/PT/OT following, - BP elevated, 10/26/24 added on Amlodipine has PRN BP meds with parameters, elevated during dialysis, will continue to monitor - code status now DNR CCA 10/27/24, Deshawn is brother/POA, if no improvement in 2-3 days open to hospice per Dr Boyd - home medications resumed - am labs, replace lytes prn - PT/OT/CM/SW - delirium precautions: limit nighttime disturbances - DVT prophylaxis: SCDs and encourage ambulation Complexity: Chronic illness with mild to moderate exacerbation, progression, or side effect of tx (MOD). Risk: Escalation of care to ICU was considered or occurred (HIGH). Advance Directive: DNR-CCA Anticipated Discharge - Date -TBD - Location -may go to SNF or hospice uncertain at this time - Pending the following -depends on symptom improvement Toxic drug monitoring/narrow therapeutic index drug monitoring : # Drug name : # Route administered : # Method of monitoring : Extended Emergency Contact Information Primary Emergency Contact: Deshawn Crystal Mobile Relation: Brother Technical Coordinator needed? No Secondary Emergency Contact: Edward Ruggiero Mobile Relation: Significant Other Preferred language: Cambodian Technical Coordinator needed? No Ana Boyce APRN - AGENCY TRAINER Division of Hospitalist Medicine [facility] [1] Past Medical History: Diagnosis Date Chronic kidney disease (CKD) Hemodialysis patient ([facility]/HCC) (HCC) Wednesday, , Wednesday History of blood transfusion 02/27/2022 Hypertension Seizure (HCC) Developed seizure-like activity on 02/24 during hospital admission [2] amLODIPine, 5 mg, Oral, Daily chlorhexidine, , Topical, Daily collagenase, , Topical, Daily heparin, 5,000 Units, SubCUTAneous, 2 times per day levETIRAcetam, 500 mg, IntraVENous, Daily meropenem, 1,000 mg, IntraVENous, q12h [Held by provider] sevelamer carbonate, 800 mg, Oral, TID WC sodium chloride 0.9%, 5-40 mL, IntraVENous, 2 times per day sodium chloride 0.9%, 5-40 mL, IntraCATHeter, q8h [3] PRN medications: acetaminophen OR acetaminophen, acetaminophen, collagenase, dextrose, dextrose, glucagon (rDNA), glucose, heparin, heparin, heparin, heparin, hydrALAZINE, labetalol, ondansetron ODT OR ondansetron, polyethylene glycol (PEG) 3350, sodium chloride, sodium chloride, sodium chloride, sodium chloride 0.9%, sodium chloride 0.9% [4] Hospitalist Progress Note 10/28/2024 Subjective: Admit Date: 10/22/2024 PCP: Roxie Spain Room#: [id number]/[id number] A BRIEF HOSPITAL COURSE: Apoorva Gonzalez is a 74 year old female who presented 10/22 from [facility] due to altered mental status. In the ED was noted to be febrile 101.3 at [facility], tachycardic, tachypneic and with elevated WBC. Received IV fluid bolus, antibiotics. Admitted to [facility] for further work up. Critical care consulted the following day as patient remained febrile, tachycardic and tachypneic. WBC count also continuing to increase with worsening anemia. Patient has had multiple admissions 08/14 to 08/24 at [facility] for cardiac arrest, 08/26 to 09/06 at for sepsis believed to be due to an infected right thigh wound and hematoma; ACH from 09/13 - 10/12/24 due to covid-19, electrolyte derangements, Enterobacter cloacae, Klebsiella pneumonia, Klebsiella oxytocin and VR Enterococcus which were treated for complete course, also, had C. difficile colitis which was treated, had tunneled HD catheter placed on discharge on 10/12. . Patient has PT/OT/ST, Infectious disease, nephrology, and wound care consulted. She was transferred out of ICU services to medical services on 10/24/24. She is currently receiving Meropenem and Vancomycin IV for infected pressure ulcer on left buttocks. Patient is also ESRD and gets HD T, Th, 10/27/24: Hgb 6.7 received 1 unit of blood, Dr Boyd spoke with HPOA brother Deshawn, made patient DNR CCA, considering hospice, Vancomycin stopped Interval History: 10/28/24 Patient moved out of ICU to [address] [place], [place] [address], dialysis being set up this morning, hemoglobin remains stable overnight at 9.3, patient denies pain, chest pain, shortness of breath, states she is not having pain yet denies fever/chills, denies N/V, flat affect, doesn't engage in talking unless asked questions she will answer or needs asked a few times until she answers, appetite improving, tolerating oral intake, Case and plan discussed with patient and bedside nurse. All questions answered. Adult diet Dysphagia - Soft and Bite Sized 24HR INTAKE/OUTPUT: Intake/Output Summary (Last 24 hours) at 10/28/2024 1359 Last data filed at 10/28/2024 1225 Gross per 24 hour Intake 333.2 ml Output -- Net 333.2 ml Past Medical History: Medical History[1] LABS: CBC: Recent Labs 10/26/24 0657 10/27/24 0339 10/27/24 1406 10/28/24 0515 WBC 25.4* 24.7* -- 26.6* RBC 2.56* 2.28* -- 3.15* HGB 7.5* 6.7* 9.5* 9.3* HCT 23.3* 20.8* 29.4* 28.0* MCV 91.0 91.2 -- 88.9 RDW 16.3* 16.2* -- 16.4* PLT 357 390 -- 460* BMP: Recent Labs 10/26/24 0657 10/27/24 0339 10/28/24 0515 NA 143 143 144 K 3.7 3.6 3.9 CL 106 108* 109* CO2 25 27 24 BUN 24* 13 24* CREATININE 4.91* 2.93* 3.83* GLUCOSE 88 104 87 CALCIUM 7.8* 7.9* 8.0* ANIONGAP 12 8 11 LIVER PROFILE:No results for input(s): AST, ALT, BILITOT, ALKPHOS, PROT in the last 72 hours. No lab exists for component: LABALBU PT/INR: No results for input(s): PROTIME, INR in the last 72 hours. CARDIAC ENZYMES: No results for input(s): TROPONINI in the last 72 hours. Procalcitonin: No results found for: PROCAL COVID-19 PCR: No results for input(s): COVID19 in the last 72 hours. Objective: Vitals: BP (!) 179/101 Pulse 102 Temp 36.1 C (96.9 F) Resp 18 Ht 1.626 m (5' 4) Wt 52.3 kg (115 lb 4.8 oz) SpO2 97% BMI 19.79 kg/m Pulse Ox: SpO2 Av.2 % Min: 93 % Max: 100 % Supplemental O2: Physical Exam Vitals and nursing note reviewed. Constitutional: Appearance: She is ill-appearing. HENT: Head: Normocephalic. Mouth/Throat: Mouth: Mucous membranes are moist. Eyes: Extraocular Movements: Extraocular movements intact. Pupils: Pupils are equal, round, and reactive to light. Cardiovascular: Rate and Rhythm: Normal rate and regular rhythm. Pulmonary: Effort: Pulmonary effort is normal. Breath sounds: Normal breath sounds. Comments: Diminished, poor inspiratory effort Abdominal: General: Bowel sounds are normal. Palpations: Abdomen is soft. Musculoskeletal: General: Normal range of motion. Skin: General: Skin is warm and dry. Comments: See wound media photo Neurological: General: No focal deficit present. Mental Status: She is alert and oriented to person, place, and time. Psychiatric: Mood and Affect: Mood normal. Behavior: Behavior normal. Medications: Scheduled PRN Scheduled Meds[2] PRN Meds[3] Continuous Continuous Meds[4] Assessment Data: (CAT1) Reviewed 3 or more notes from different specialty or health system (each=1). (CAT1) Reviewed 2 labs/studies previously ordered by me not previously counted (each=1, panels count as 1). (LOW: 2x CAT1 or independent historian MOD: 3x CAT1 or 1x CAT3 EXTENSIVE: 3x CAT1 and 1x CAT3) Acute, acute on chronic, unstable/uncontrolled chronic problems/diagnoses: Severe sepsis HAGMA Encephalopathy ESRD on HD-T, Th, S Acute on chronic normocytic anemia Left buttocks pressure ulcer stage 3 Severe malnutrition dysphagia Stable chronic problems affecting care, new non-acute diagnoses: Seizure disorder- on Keppra HTN HLD Debility Recent CDIFF-treated at [facility] Plan As a result of the above findings & factors, the following mgmt was pursued: - Severe sepsis is improving, likely related to left buttocks pressure wound that has enterobacter cloacae complex, WBC trending down some to 24.7 - BC negative after 5 days - Encephalopathy likely from sepsis, improving, more alert today than yesterday - ID following, continue IV Meropenem-Vancomycin discontinued yesterday afternoon 10/26/24 - HAGMA improving - chronic anemia, had 1 unit PRBC on 10/24/24, was 6.8 on 10/25/24 1 unit PRBC held for dialysis yesterday but Hgb 7.5, today 6.7 received 1 unit PRBC - ESRD T, Th, S-receiving dialysis today - Nephrology following - ST/PT/OT following, - BP elevated, 10/26/24 added on Amlodipine has PRN BP meds with parameters, elevated during dialysis - code status now DNR CCA 10/27/24, Deshawn is brother/POA, if no improvement in 2-3 days open to hospice per Dr Boyd - home medications resumed - am labs, replace lytes prn - PT/OT/CM/SW - delirium precautions: limit nighttime disturbances - DVT prophylaxis: SCDs and encourage ambulation Complexity: Chronic illness with mild to moderate exacerbation, progression, or side effect of tx (MOD). Acute illness with systemic symptoms (MOD). Risk: Prescription drug/IVF/colloid was initiated, discontinued, adjusted; or reviewed with decision to maintain current orders (MOD). Advance Directive: DNR-CCA Anticipated Discharge - Date - TBD - Location - Skilled Facility maybe hospice - Pending the following - improvement Toxic drug monitoring/narrow therapeutic index drug monitoring : # Drug name : # Route administered : # Method of monitoring : Extended Emergency Contact Information Primary Emergency Contact: Deshawn Crystal Mobile Relation: Brother Technical Coordinator needed? No Secondary Emergency Contact: Edward Ruggiero Mobile Relation: Significant Other Preferred language: Cambodian Technical Coordinator needed? No PARK Ureña CNP Division of Hospitalist Medicine [facility] [1] Past Medical History: Diagnosis Date Chronic kidney disease (CKD) Hemodialysis patient (CMS/HCC) (HCC) Wednesday, , Wednesday History of blood transfusion 02/27/2022 Hypertension Seizure (HCC) Developed seizure-like activity on 02/24 during hospital admission [2] amLODIPine, 5 mg, Oral, Daily chlorhexidine, , Topical, Daily collagenase, , Topical, Daily heparin, 5,000 Units, SubCUTAneous, 2 times per day levETIRAcetam, 500 mg, IntraVENous, Daily meropenem, 1,000 mg, IntraVENous, q12h [Held by provider] sevelamer carbonate, 800 mg, Oral, TID WC sodium chloride 0.9%, 5-40 mL, IntraVENous, 2 times per day sodium chloride 0.9%, 5-40 mL, IntraCATHeter, q8h [3] PRN medications: acetaminophen OR acetaminophen, acetaminophen, collagenase, dextrose, dextrose, glucagon (rDNA), glucose, heparin, heparin, heparin, heparin, hydrALAZINE, labetalol, ondansetron ODT OR ondansetron, polyethylene glycol (PEG) 3350, sodium chloride, sodium chloride, sodium chloride, sodium chloride 0.9%, sodium chloride 0.9% [4] Images from the original note were not included. [facility] - Infectious Diseases Attending Progress Note Patient seen and examined Chart reviewed Fever overnight noted Tm 38.6 Following for buttock wound, sepsis Patient with grimace unable to get history Objective: Vitals: Patient Vitals for the past 24 hrs: BP Temp Temp src Pulse Resp SpO2 Height Weight 10/27/24 1055 133/77 -- -- 103 -- -- -- -- 10/27/24 1054 -- 36.4 C (97.6 F) -- 103 18 -- -- -- 10/27/24 1028 137/78 36.9 C (98.4 F) -- 105 18 -- -- -- 10/27/24 0844 -- -- -- 96 -- -- -- -- 10/27/24 0802 152/89 37 C (98.6 F) Axillary 96 16 99 % -- -- 10/27/24 0610 -- -- -- -- -- -- -- 51.6 kg (113 lb 12.1 oz) 10/27/24 0339 153/79 37.4 C (99.3 F) Axillary 102 16 99 % -- -- 10/27/24 0002 (!) 164/81 (!) 38.6 C (101.4 F) Axillary 112 18 97 % -- -- 10/26/24 2151 157/83 (!) 38.2 C (100.7 F) Oral 109 16 98 % -- -- 10/26/24 2001 143/75 -- -- 109 -- -- -- -- 10/26/24 1919 134/67 -- -- 108 -- -- -- -- 10/26/24 1855 122/78 -- -- (!) 125 -- -- -- -- 10/26/24 1800 -- -- -- (!) 130 -- -- -- -- 10/26/24 1545 132/80 -- -- (!) 122 -- -- -- -- 10/26/24 1530 (!) 165/99 -- -- 115 -- -- -- -- 10/26/24 1515 (!) 170/99 -- -- 111 -- -- -- -- 10/26/24 1500 (!) 175/86 -- -- 108 -- -- -- -- 10/26/24 1445 (!) 172/97 -- -- 109 -- -- -- -- 10/26/24 1438 -- -- -- -- -- -- 1.626 m (5' 4) -- 10/26/24 1430 (!) 183/87 -- -- 108 -- -- -- -- 10/26/24 1415 (!) 176/95 -- -- 105 -- -- -- -- 10/26/24 1400 -- -- -- 103 -- -- 1.626 m (5' 4) 53.2 kg (117 lb 4.6 oz) 10/26/24 1345 (!) 174/92 -- -- 106 14 -- -- -- 10/26/24 1335 (!) 177/106 -- -- 104 15 -- -- -- 10/26/24 1330 -- -- -- 99 -- -- -- -- 10/26/24 1315 (!) 158/106 -- -- 100 15 -- -- -- 10/26/24 1300 (!) 181/101 -- -- 103 16 -- -- -- 10/26/24 1245 (!) 184/99 -- -- 97 13 -- -- -- 10/26/24 1230 (!) 177/107 -- -- 99 14 -- -- -- 10/26/24 1215 (!) 173/107 -- -- 95 15 -- -- -- Physical Exam Vitals reviewed. Constitutional: General: She is not in acute distress. Appearance: She is ill-appearing and toxic-appearing. Cardiovascular: Rate and Rhythm: Tachycardia present. Pulses: Normal pulses. Heart sounds: Normal heart sounds. No murmur heard. Pulmonary: Effort: Pulmonary effort is normal. No respiratory distress. Breath sounds: Normal breath sounds. No wheezing or rales (poor effort). Abdominal: General: There is no distension. Palpations: Abdomen is soft. Tenderness: There is no abdominal tenderness. Musculoskeletal: General: No swelling. Cervical back: Neck supple. Right lower leg: No edema (R thigh incision healing well, induratio actually better to R lateral thigh). Left lower leg: No edema. Comments: AVF, wound, no purulence, no surrounding erythema bu TTP Skin: General: Skin is warm. Coloration: Skin is not jaundiced. Findings: No erythema or rash. Neurological: Comments: Unable to assess, not following commands, lethargic Psychiatric: Comments: Uanble to assess Left buttock wound Addendum 10/29: On 10/27 left arm fistula site was examined. No koko pus expressible from site but noted on gauze, no induration noted. Labs: Lab Results Component Value Date/Time NA 143 10/27/2024 0339 K 3.6 10/27/2024 0339 CL 108 (H) 10/27/2024 0339 CO2 27 10/27/2024 0339 BUN 13 10/27/2024 0339 CREATININE 2.93 (H) 10/27/2024 0339 GLUCOSE 104 10/27/2024 0339 CALCIUM 7.9 (L) 10/27/2024 0339 PROT 5.6 (L) 10/24/2024 0649 BILITOT 0.5 10/24/2024 0649 ALKPHOS 150 10/24/2024 0649 AST 28 10/24/2024 0649 ALT <6 10/24/2024 0649 PROCAL 68.03 (H) 10/05/2024 1419 PROCAL 19.25 (H) 09/15/2024 0308 PROCAL 76.25 (H) 09/14/2024 0541 Lab Results Component Value Date/Time WBC 24.7 (H) 10/27/2024 0339 HGB 6.7 (LL) 10/27/2024 0339 HGB 9.1 10/05/2024 1419 HCT 20.8 (L) 10/27/2024 0339 PLT 390 10/27/2024 0339 LYMPHOPCT 7 (L) 10/27/2024 0339 MONOPCT 3 (L) 10/27/2024 0339 BASOPCT 2 10/27/2024 0339 NEUTROABS 16.9 (H) 10/22/2024 1411 Micro: 10/24 drainage left AVF site cx: E cloacae 10/22 BC: neg 10/22 L buttock wound cx: E cloacae Lines: PIV TLC Vas cath Radiography/Echo/Other: Reviewed Chest xray: Bibasilar infiltrates and effusions. 2. Prominence of the interstitial and central pulmonary vasculature consistent with mild to moderate congestive heart failure/fluid overload. 3. Overall improvement in the aeration of the lungs when compared to the previous study. Antimicrobials, Start/End Dates: IV meropenem Impression: 74 F admitted with fever, change MS(confusion)from ECF: Severe sepsis. Improving, WBC trending down Infected left buttock pressure ulcer due to enterobacter cloacae complex. Photo on Media tab- does not appear grossly infected, fibrinous base. R/o infected left arm fistula with E cloacae as well. Consider Vascular surgery in case needs to be excised. Addendum 10/29: fevers better consider vascular surgery consult as outpatient to address fistula Encephalopathy- worse today( compared to previous [facility] admission) Leukocytosis. ESRD, on HD. Recent h/o Enterobacter cloacae/ Kleb pneumo/ Kleb oxytoca/ VR-Enterococcus casseliflavus BSI. Possble due to #3, instead of infected hematoma previously assumed and treated for in September 2024. Recent h/o C diff colitis. Overall acutely ill still. Plan: Antibiotics switched to meropenem yesterday Continue to monitor fevers Repeat BC so far negative Will follow Total time of 35 minutes on this day of encounter spent on, but not limited to review of tests, medical records . Hospitalist Progress Note 10/27/2024 Subjective: Admit Date: 10/22/2024 PCP: Roxie Spain Room#: 222-02/222-02 A BRIEF HOSPITAL COURSE: Apoorva Gonzalez is a 74 year old female who presented 10/22 from [facility] due to altered mental status. In the ED was noted to be febrile 101.3 at [facility], tachycardic, tachypneic and with elevated WBC. Received IV fluid bolus, antibiotics. Admitted to [facility] for further work up. Critical care consulted the following day as patient remained febrile, tachycardic and tachypneic. WBC count also continuing to increase with worsening anemia. Patient has had multiple admissions 08/14 to 08/24 at [facility] for cardiac arrest, 08/26 to 09/06 at for sepsis believed to be due to an infected right thigh wound and hematoma; [facility] from 09/13 - 10/12/24 due to covid-19, electrolyte derangements, Enterobacter cloacae, Klebsiella pneumonia, Klebsiella oxytocin and VR Enterococcus which were treated for complete course, also, had C. difficile colitis which was treated, had tunneled HD catheter placed on discharge on 10/12. . Patient has PT/OT/ST, Infectious disease, nephrology, and wound care consulted. She was transferred out of ICU services to medical services on 10/24/24. She is currently receiving Meropenem and Vancomycin IV for infected pressure ulcer on left buttocks. Patient is also ESRD and gets T, Th, Sat HD. Patient currently resides at [facility] and will return on discharge Interval History: 10/27/24: Patient sitting up in bed eating breakfast, Hgb this morning was 6.7, discussed type and screen, blood consent, patient agreeable to consent for 1 unit PRBC. Patient much more alert today, wasn't happy ST was there, I can swallow my food just fine, I don't need you here you can stand there and watch me if you want Patient appears weak but able to feed self, denies having pain, denied shortness of breath/chest pain when assessing her, has trouble recalling date/time, knows her , can say she is in the hospital. I told her that her buttocks looks pretty good from the picture I seen and she said I told you that yesterday. Case and plan discussed with patient and bedside nurse. All questions answered. Adult diet Dysphagia - Soft and Bite Sized 24HR INTAKE/OUTPUT: Intake/Output Summary (Last 24 hours) at 10/27/2024 1503 Last data filed at 10/27/2024 1308 Gross per 24 hour Intake 743.5 ml Output 0 ml Net 743.5 ml Past Medical History: Medical History[1] LABS: CBC: Recent Labs 10/25/24 0349 10/26/24 0657 10/27/24 0339 10/27/24 1406 WBC 29.9* 25.4* 24.7* -- RBC 2.39* 2.56* 2.28* -- HGB 6.8* 7.5* 6.7* 9.5* HCT 22.1* 23.3* 20.8* 29.4* MCV 92.5 91.0 91.2 -- RDW 16.1* 16.3* 16.2* -- PLT 317 357 390 -- BMP: Recent Labs 10/25/24 0349 10/26/24 0657 10/27/24 0339 NA 143 143 143 K 3.5 3.7 3.6 CL 103 106 108* CO2 23 25 27 BUN 15 24* 13 CREATININE 3.49* 4.91* 2.93* GLUCOSE 69* 88 104 CALCIUM 8.2* 7.8* 7.9* ANIONGAP 17* 12 8 LIVER PROFILE:No results for input(s): AST, ALT, BILITOT, ALKPHOS, PROT in the last 72 hours. No lab exists for component: LABALBU PT/INR: No results for input(s): PROTIME, INR in the last 72 hours. CARDIAC ENZYMES: No results for input(s): TROPONINI in the last 72 hours. Procalcitonin: No results found for: PROCAL COVID-19 PCR: No results for input(s): COVID19 in the last 72 hours. Objective: Vitals: BP 138/76 Pulse 98 Temp 36.9 C (98.4 F) Resp 18 Ht 1.626 m (5' 4) Wt 51.6 kg (113 lb 12.1 oz) SpO2 99% BMI 19.53 kg/m Pulse Ox: SpO2 Av.3 % Min: 97 % Max: 99 % Supplemental O2: Physical Exam Vitals and nursing note reviewed. Constitutional: Appearance: She is ill-appearing. Comments: Weak appearance HENT: Head: Normocephalic. Mouth/Throat: Mouth: Mucous membranes are moist. Eyes: Extraocular Movements: Extraocular movements intact. Pupils: Pupils are equal, round, and reactive to light. Cardiovascular: Rate and Rhythm: Tachycardia present. Pulmonary: Effort: Pulmonary effort is normal. Comments: Diminished poor inspiratory effort Abdominal: General: Bowel sounds are normal. Palpations: Abdomen is soft. Musculoskeletal: General: Normal range of motion. Cervical back: Normal range of motion. Right lower leg: No edema. Left lower leg: No edema. Skin: General: Skin is warm and dry. Comments: See wound care picture Neurological: General: No focal deficit present. Mental Status: She is alert and oriented to person, place, and time. Psychiatric: Mood and Affect: Mood normal. Behavior: Behavior normal. Medications: Scheduled PRN Scheduled Meds[2] PRN Meds[3] Continuous Continuous Meds[4] Assessment Data: (CAT1) Reviewed 3 or more labs/studies previously ordered by me not previously counted (each=1, panels count as 1). (LOW: 2x CAT1 or independent historian MOD: 3x CAT1 or 1x CAT3 EXTENSIVE: 3x CAT1 and 1x CAT3) Acute, acute on chronic, unstable/uncontrolled chronic problems/diagnoses: Severe sepsis HAGMA Encephalopathy ESRD on HD-T, , S Acute on chronic normocytic anemia Left buttocks pressure ulcer stage 3 Severe malnutrition dysphagia Stable chronic problems affecting care, new non-acute diagnoses: Seizure disorder- on Keppra HTN HLD Debility Recent CDIFF-treated at [facility] Plan As a result of the above findings & factors, the following mgmt was pursued: - Severe sepsis is improving, likely related to left buttocks pressure wound that has enterobacter cloacae complex, WBC trending down some to 24.7 - BC negative after 4 days - Encephalopathy likely from sepsis, improving, more alert today than yesterday - ID following, continue IV Meropenem-Vancomycin discontinued yesterday afternoon 10/26/24 - HAGMA improving - wound care is following for pressure ulcer - chronic anemia, had 1 unit PRBC on 10/24/24, was 6.8 on 10/25/24 1 unit PRBC held for dialysis yesterday but Hgb 7.5, today 6.7, consented to transfuse 1 unit PRBC, Type and Screen completed - ESRD T, , S-had dialysis yesterday - Nephrology following - ST/PT/OT following, patient upset that ST consulted, I don't need you here continue soft solid bites, thin liquids and meds - BP has been elevated for a few days, added on Amlodipine today, has PRN BP meds with parameters, BP more controlled overnight - Spoke with Dr Boyd about code status change, Deshawn is brother/POA, if no improvement in 2-3 days open to hospice DNR CCA - home medications resumed - am labs, replace lytes prn - PT/OT/CM/SW - delirium precautions: limit nighttime disturbances - DVT prophylaxis: SCDs and encourage ambulation Complexity: Chronic illness with mild to moderate exacerbation, progression, or side effect of tx (MOD). Acute illness with systemic symptoms (MOD). Risk: Prescription drug/IVF/colloid was initiated, discontinued, adjusted; or reviewed with decision to maintain current orders (MOD). Advance Directive: DNR-CCA Anticipated Discharge - Date - TBD - Location - Assisted Living PT/OT recommending SNF - Pending the following - improvement Toxic drug monitoring/narrow therapeutic index drug monitoring : # Drug name : Vancomycin discontinued # Route administered : # Method of monitoring : Extended Emergency Contact Information Primary Emergency Contact: Deshawn Crystal Mobile Relation: Brother Technical Coordinator needed? No Secondary Emergency Contact: Edward Ruggiero Mobile Relation: Significant Other Preferred language: Cambodian Technical Coordinator needed? No PARK Ureña CNP Division of Hospitalist Medicine [facility] [1] Past Medical History: Diagnosis Date Chronic kidney disease (CKD) Hemodialysis patient (CMS/HCC) ([facility]) Wednesday, , Wednesday History of blood transfusion 02/27/2022 Hypertension Seizure ([facility]) Developed seizure-like activity on 02/24 during hospital admission [2] amLODIPine, 5 mg, Oral, Daily chlorhexidine, , Topical, Daily collagenase, , Topical, Daily heparin, 5,000 Units, SubCUTAneous, 2 times per day levETIRAcetam, 500 mg, IntraVENous, Daily meropenem, 1,000 mg, IntraVENous, q12h mupirocin, , Nasal, BID [Held by provider] sevelamer carbonate, 800 mg, Oral, TID WC sodium chloride 0.9%, 5-40 mL, IntraVENous, 2 times per day sodium chloride 0.9%, 5-40 mL, IntraCATHeter, q8h [3] PRN medications: acetaminophen OR acetaminophen, acetaminophen, collagenase, dextrose, dextrose, glucagon (rDNA), glucose, heparin, heparin, heparin, heparin, hydrALAZINE, labetalol, ondansetron ODT OR ondansetron, polyethylene glycol (PEG) 3350, sodium chloride, sodium chloride, sodium chloride, sodium chloride 0.9%, sodium chloride 0.9% [4] Images from the original note were not included. Speech-Language Pathology SPEECH LANGUAGE PATHOLOGY [facility] Dysphagia Treatment Note Patient Name: Apoorva Gonzalez Evaluation Date: 10/27/2024 Date of : 1950 Admission Date: 10/22/2024 12:48 PM Age: 74 y.o. Room/Bed: 222-02/22202 A Subjective Patient alert, confused and agitated. Seen upright in bed. Answers some basic questions with clear vocal quality. Follows some basic commands. 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 Spoke with RNAna, who cleared pt for treatment. Current Diet: Dietary Orders (From admission, onward) Start Ordered 10/26/24 1438 Supplement:Dinner; Nepro w/CARB Steady Until discontinued Question Answer Comment Frequency Dinner Select supplement: Nepro w/CARB Steady 10/26/24 1438 10/26/24 1438 Supplement:Breakfast, Lunch; Vanilla Magic Cup Until discontinued Question Answer Comment Frequency Breakfast Frequency Lunch Select supplement: Vanilla Magic Cup 10/26/24 1438 10/25/24 1441 Adult diet Dysphagia - Soft and Bite Sized Diet effective now Question: Diet type Answer: Dysphagia - Soft and Bite Sized 10/25/24 1440 Aspiration Precautions: - Upright positioning for all PO intake - 1:1 Assistance/supervision depending on mentation - PO only when fully alert - Alternate solid and liquids Oxygen: Oxygen Therapy: None (Room air) Pain: Pt denies any current pain. PPE Worn: gown, gloves Objective & Assessment Activity 1: Diet tolerance & trials Pt agitated with CAREER RESOURCE SPECIALIST this am, stating I don't need you, don't touch my food. Pt was observed to be self-feeding at CAREER RESOURCE SPECIALIST's arrival. CAREER RESOURCE SPECIALIST provided explanation for purpose of therapy & goals of care - to upgrade pt's diet as appropriate. Pt stating You can watch me eat but that's it. Pt was observed to tolerated 3 bites of scrambled eggs & ice cream with functional mastication, achieving full bolus clearance & no overt s/s of aspiration/penetration. CAREER RESOURCE SPECIALIST offered pt regular PO trials (dipti vasquez) with pt stating Don't touch anything, I don't need this, leave me be. CAREER RESOURCE SPECIALIST adhered to pt's wishes at this time to decrease agitation, RN notified. Continue with current diet at this time - allow pt to self-feed if mentation continues to improve. Plan & Recommendations Plan: Continue acute CAREER RESOURCE SPECIALIST therapy per initial plan of care and established goals. Recommend Soft and bite-sized solids and Thin liquids and meds as tolerated and the following precautions: - Upright positioning for all PO intake - Small bites/sips - Supervision with PO - PO only when fully alert - Alternate solid and liquids D/C Recommendations: to be determined Education Education Given: swallowing strategies, diet recommendations Given To: patient and RN Response: verbalizes understanding Goals Patient Stated Goal: Leave me be Encounter Problems Encounter Problems (Active) Swallowing Patient will tolerate the least restrictive diet consistency to allow for safe consumption of daily meals (Not Progressing) Start: 10/24/24 Expected End: 11/07/24 Patient will demonstrate safe swallowing Intervention/techniques (Not Progressing) Start: 10/24/24 Expected End: 11/07/24 Patient will use appropriate strategies for increased oralpharyngeal swallow function (Not Progressing) Start: 10/24/24 Expected End: 11/07/24 Therapy Time CAREER RESOURCE SPECIALIST Individual Minutes Time In: 904 Time Out: 914 Minutes: 10 Christine Barnes CCC-CAREER RESOURCE SPECIALIST Images from the original note were not included. Palliative Care Progress Note Chief Complaint: Apoorva Gonzalez is a 74 y.o. female with chief complaint of fever Palliative care consulted for goals of care Palliative Care is actively following. Assessment/Plan Goals of care Apoorva Gonzalez lacks capacity for medical decision-making due to encephalopathy. -legal surrogate decision maker is Brother Deshawn CARUSO ( ) Alternate is s/o Edward Ruggiero [phone]) - patient seen this am, she was confused, oriented X 1 only - reached out to SHADY/brother Deshawn Crystal, introduced self and role - discussed goals, discussed CPR, intubation, vent - discussed quality, quantity of life - Discussed the medicare hospice benefit, explained it will provide nurses, aides, spiritual care, social work and physicians. Discussed comfort medications and supplies will be included. Discussed goals of comfort focused care. Discussed that family will have number to call hospice 24 hours per day for concerns, that they can call hospice instead of 911. Reviewed that if patients require inpatient admission for uncontrolled symptoms they can be directly admitted to Palliative Care and Hospice Unit. - changed Code status to DNRCCA after discussion with Deshawn, he stated that he would not want Apoorva to go through all that - Deshawn would like to see how Apoorva does over the weekend, should her condition not improve he was open to revisiting goals again on Wednesday and open to hospice consult - provided empathetic listening and emotional support to Deshawn - discussed with bedside RN, primary team RADIATION ONCOLOGIST-TAMIR Boyce - will continue to have ongoing goals of care conversations with patient, family Severe sepsis - likely secondary to infected left buttock pressure ulcer due to enterobacter cloacae complex , possible infected left arm fistula with E cloacae - ID on case, patient on meropenem Wound - sacral extending to left buttock - wound care team on case Dysphagia - CAREER RESOURCE SPECIALIST on case, patient on soft and bite sized diet Seizure Disorder - patient on keppra ESRD - per nephrology notes from 10/26 patient stable on dialysis - next HD planned for Wednesday Hx of CP Arrest - 08/2024 while at [facility] Palliative Care Encounter -Code Status: Full Code - will continue to follow for ongoing monitoring of progression of Dyspnea and Pain as well as for appropriateness for hospice care due to ESRD Palliative Care Encounter -Code Status: DNRCCA - will continue to follow for ongoing monitoring of progression of Dyspnea, Pain, and Constipation as well as for appropriateness for hospice care due to Dysphagia - will continue to evaluate test results related to Dysphagia, medication effectiveness for Dyspnea, Pain, and Constipation, response to treatment of Dysphagia - obtaining testing as needed to monitor medication results:N/A PC Time Stamp: Total of 85 minutes spent on this encounter including Chart review, Patient visit and exam, Documentation in EHR, Care coordination, and Communicating with primary attending or other consultants. Discharge planning: Not ready for discharge due to ongoing goals of care discussion Patient meets criteria for general inpatient hospice care: No Palliative Care IDT members involved: None Discussed the plan of care with the other interdisciplinary team (IDT) members of the Palliative Care and Hospice teams and Patient, Family, Primary Attending, and Floor Nurse. Subjective: Subjective/Events Apoorva Gonzalez is a 74 y.o. female admitted to [facility] on 10/22 from facility with mentation alteration, fever, tachycardia, lethargy . Patient seen and examined this morning. Discussed with bedside RN. Patient was sitting up on bed, was trying to remove her tray. When asked stated it has been lying there for 1 hr and very cold. Per staff has been confused. Was AxOx1 only when seen. Patient denied any complains. Palliative Care Assessments: Goals of care: Continue Current Management, Live Longer, extend life as much as possible, Strengthening Relationships, and Support for Family/Caregiver Advanced Directives: Health Care Power of Rotary Helper, DNR Functional Assessment: PPS 50% mainly sit/lie; can't do any work/extensive disease; considerable assistance; normal or reduced intake; full LOC or confusion Prognosis: depends upon goals of care Spiritual Assessment: No spiritual distress identified Bereavement and Grief: To Be Determined PDMP/OARRS Reviewed: Yes-reviewed Social history: Marital status: Children: one child, . Living status: shelter Work history: n/a [place] status: No Episcopal erma: None ROS: See palliative care ROS/ESAS below; Detail ROS unable to be obtained due to patient's mental status Chester Symptom Assessment Score Chester Score Pain Score (if non-verbal, add .FLACC below) 0 Tiredness Score 8 Nausea Score 0 Depression Score 0 Anxiety Score 3 Drowsiness Score 6 Anorexia Score (0= eating well, 10= not eating) 8 Wellbeing Score (10= worst sense of well-being) 8 Constipation 0 Dyspnea Score (0= no shortness of breath) 0 Family Meeting: Participants: patient and HCPOA/Brother Stephanie on phone Family meeting was held to discuss:Diagnosis and Prognosis, Goals of Care, Treatment Options, Symptom Management, Advanced Care Planning, and Prior Expressed Wishes Objective: BP 152/89 Pulse 96 Temp 37.4 C (99.3 F) (Axillary) Resp 16 Ht 5' 4 (1.626 m) Wt 113 lb 12.1 oz (51.6 kg) SpO2 99% BMI 19.53 kg/m Physical Exam Constitutional: Appearance: She is ill-appearing. HENT: Head: Normocephalic and atraumatic. Right Ear: External ear normal. Left Ear: External ear normal. Nose: Nose normal. Mouth/Throat: Mouth: Mucous membranes are moist. Eyes: General: No scleral icterus. Right eye: No discharge. Left eye: No discharge. Conjunctiva/sclera: Conjunctivae normal. Pupils: Pupils are equal, round, and reactive to light. Cardiovascular: Rate and Rhythm: Regular rhythm. Tachycardia present. Pulses: Normal pulses. Heart sounds: Normal heart sounds. No murmur heard. Pulmonary: Effort: Pulmonary effort is normal. Breath sounds: No stridor. No wheezing. Comments: Bilateral basal crackles present Abdominal: General: Bowel sounds are normal. There is no distension. Palpations: Abdomen is soft. Musculoskeletal: Cervical back: Neck supple. Skin: General: Skin is warm. Coloration: Skin is not jaundiced. Neurological: Mental Status: She is alert. Motor: Weakness present. Comments: AxOx1 Psychiatric: Comments: Anxious Medication information: 24-hour PRN meds received: Reviewed Results/Verification of Data Review Objective data reviewed (must include dates reviewed for labs, imaging reports and other specialty notes): - labs, imaging, MAR, Vitals, OARRS reviewed 10/27/24 Data in Support of Terminal Illness: Is patient hospice appropriate? Yes - Apoorva Gonzalez is a 74 y.o. female who is hospice appropriate with an expected prognosis of 6 months or less due to the following: Primary Hospice Diagnosis (must include ICD-10 code) ESRD, Contributing Diagnoses Dysphagia, Severe sepsis, Wound, Seizure disorder , Diagnoses unrelated to terminal condition: None. CTI Apoorva Gonzalez is a 74 y.o. female with PMHx of HTN, CKD, seizures, CP arrest. She presents from facility with mentation alteration, fever, tachycardia, lethargy. Noted last iHD was day prior per brother. She does receive dialysis 5 times a week. She was hypotensive, tachycardic, fever up to 101 F. Increased WBC. CXR notes bibasilar effusions/infiltrates. Central pulmonary vascular congestion c/w CHF and fluid overload. She had a recent long admission at [facility] for about a month, COVID-19, spesis. Cdiff colitis as well during that admission. Patient found to have severe sepsis, was started on IV antibiotics, admitted to ICU. Patient found to have Dysphagia, on modified diet. Patient also found to have sacral wound extending to left buttock. Patient is hospice appropriate with life expectancy of 6 months or less should her disease run its natural course. Opal Boyd MD [facility] - Infectious Diseases Attending Progress Note Subjective: ID covering- Chart reviewed, patient is less interactive, mumbling and unable to provide ROS this time. Did grimace when abdominal exam was done. Incontinent of liquid stool. Objective: Vitals: Patient Vitals for the past 24 hrs: BP Temp Temp src Pulse Resp SpO2 Height Weight 10/26/24 1438 -- -- -- -- -- -- 1.626 m (5' 4) -- 10/26/24 1400 -- -- -- -- -- -- 1.626 m (5' 4) 53.2 kg (117 lb 4.6 oz) 10/26/24 1345 -- -- -- -- 14 -- -- -- 10/26/24 1335 (!) 177/106 -- -- 104 15 -- -- -- 10/26/24 1315 (!) 158/106 -- -- 100 15 -- -- -- 10/26/24 1300 (!) 181/101 -- -- 103 16 -- -- -- 10/26/24 1245 (!) 184/99 -- -- 97 13 -- -- -- 10/26/24 1230 (!) 177/107 -- -- 99 14 -- -- -- 10/26/24 1215 (!) 173/107 -- -- 95 15 -- -- -- 10/26/24 1200 (!) 169/102 -- -- 97 15 -- -- -- 10/26/24 1145 (!) 172/92 -- -- 93 16 -- -- -- 10/26/24 1130 (!) 168/87 -- -- 93 13 -- -- -- 10/26/24 1115 (!) 196/103 -- -- 109 14 -- -- -- 10/26/24 1100 (!) 182/109 -- -- 104 15 -- -- -- 10/26/24 1045 158/96 -- -- 103 14 -- -- -- 10/26/24 1035 (!) 165/82 -- -- 106 15 -- -- -- 10/26/24 1000 144/83 -- -- 108 -- -- -- -- 10/26/24 0958 151/85 37.3 C (99.2 F) Oral 109 14 96 % -- -- 10/26/24 0733 -- -- -- 106 -- -- -- -- 10/26/24 0704 -- 37.6 C (99.6 F) Oral -- -- -- -- -- 10/26/24 0653 160/98 -- -- 107 -- -- -- -- 10/26/24 0002 151/85 37.1 C (98.8 F) Oral 100 16 -- -- -- 10/25/24 2116 139/95 -- -- 103 -- -- -- -- 10/25/24 2101 (!) 172/89 -- -- 104 -- -- -- -- 10/25/249 (!) 186/99 -- -- 111 -- -- -- -- 10/25/24 192 (!) 180/88 -- -- 104 -- -- -- -- 10/25/241923 (!) 180/88 37.1 C (98.8 F) -- -- -- 96 % -- -- Physical Exam Vitals reviewed. Constitutional: General: She is not in acute distress. Appearance: She is ill-appearing and toxic-appearing. Cardiovascular: Rate and Rhythm: Tachycardia present. Rhythm irregular. Pulses: Normal pulses. Heart sounds: Normal heart sounds. No murmur heard. Pulmonary: Effort: Pulmonary effort is normal. No respiratory distress. Breath sounds: Normal breath sounds. No wheezing or rales (poor effort). Abdominal: General: There is no distension. Palpations: Abdomen is soft. Tenderness: There is abdominal tenderness. Musculoskeletal: General: No swelling. Cervical back: Neck supple. Right lower leg: No edema (R thigh incision healing well, induratio actually better to R lateral thigh). Left lower leg: No edema. Comments: AVF, wound, no purulence, no surrounding erythema bu TTP Skin: General: Skin is warm. Coloration: Skin is not jaundiced. Findings: No erythema or rash. Neurological: Comments: Unable to assess, not following commands, lethargic Psychiatric: Comments: Uanble to assess Labs: Lab Results Component Value Date/Time NA 143 10/26/2024 0657 K 3.7 10/26/2024 0657 CL 106 10/26/2024 0657 CO2 25 10/26/2024 0657 BUN 24 (H) 10/26/2024 0657 CREATININE 4.91 (H) 10/26/2024 0657 GLUCOSE 88 10/26/2024 0657 CALCIUM 7.8 (L) 10/26/2024 0657 PROT 5.6 (L) 10/24/2024 0649 BILITOT 0.5 10/24/2024 0649 ALKPHOS 150 10/24/2024 0649 AST 28 10/24/2024 0649 ALT <6 10/24/2024 0649 PROCAL 68.03 (H) 10/05/2024 1419 PROCAL 19.25 (H) 09/15/2024 0308 PROCAL 76.25 (H) 09/14/2024 0541 Lab Results Component Value Date/Time WBC 25.4 (H) 10/26/2024 0657 HGB 7.5 (L) 10/26/2024 0657 HGB 9.1 10/05/2024 1419 HCT 23.3 (L) 10/26/2024 0657 PLT 357 10/26/2024 0657 LYMPHOPCT 4 (L) 10/26/2024 0657 LYMPHOPCT 7.2 (L) 10/22/2024 1411 LYMPHOPCT 6 (L) 10/11/2024 0245 MONOPCT 5 10/26/2024 0657 MONOPCT 6.5 10/22/2024 1411 MONOPCT 3 (L) 10/11/2024 0245 BASOPCT 2 10/26/2024 0657 BASOPCT 1.1 10/22/2024 1411 BASOPCT 3 (H) 10/11/2024 0245 NEUTROABS 16.9 (H) 10/22/2024 1411 Micro: 10/24 AVF site cx: E cloacae 10/22 BC: neg 10/22 L buttock wound cx: E cloacae Lines: PIV TLC Vas cath Radiography/Echo/Other: reviewed Antimicrobials, Start/End Dates: Vancomycin Cefepime to Meropenem Impression: 74 F admitted with fever, change MS(confusion)from ECF: Severe sepsis. Improving, WBC trending down Infected left buttock pressure ulcer due to enterobacter cloacae complex. Photo on Media tab- does not appear grossly infected, fibrinous base. R/o infected left arm fistula with E cloacae as well. Consider Vascular surgery in case needs to be excised. Encephalopathy- worse today( compared to previous [facility] admission) Leukocytosis. ESRD, on HD. Recent h/o Enterobacter cloacae/ Kleb pneumo/ Kleb oxytoca/ VR-Enterococcus casseliflavus BSI. Possble due to #3, instead of infected hematoma previously assumed and treated for in September 2024. Recent h/o C diff colitis. Overall acutely ill still. Plan: Continue same Meropenem. Duration to be determined. DC Vancomycin. Nutrition Assessment Type and Reason for Visit: Reassess Nutrition Recommendations/Plan: Continue with Adult diet Dysphagia - Soft and Bite Sized per CAREER RESOURCE SPECIALIST recommendation. No additional renal restrictions needed for now. K+/Phos wnl. Initiate Nepro once daily per MNT protocol. Nepro provides 420 kcals, 19 g protein per 8 oz serving. Initiate Magic cup BID per MNT protocol. Magic cup provides 290 kcals, 9 g protein per serving. Please document pt's PO intakes via flowsheet to accurately assess PO intake adequacy. Monitor intakes, weights, and labs weekly. RD will follow. 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 Pt is very tired this afternoon. Noted to be confused, but improving encephalopathy. Pt received dialysis today, on TTHSat HD schedule. HD today with 1L net removed. RD weighed the pt today at 53.2kg. Limited interaction today d/t pt with decreased level of consciousness. Lunch tray at bedside with 0% consumed. Pt would benefit from ONS supplementation. Pt also with noted skin breakdown. Estimated Daily Nutrient Needs: Energy Requirements Based On: Kcal/kg Weight Used for Energy Requirements: [place] Weight for Energy Calculation (kg): 55 kg Total Energy Requirements (kcals/day): 7813-7312 (27-32 kcal/kg IBW) Weight Used for Protein Requirements: [place] Weight in Kg Used for Protein Requirements: 55 kg Estimated Total Protein (g/day): 55-82 (1.0-1.5 g protein/kg IBW) Estimated Daily Total Fluid (ml/day): urine output +1000 ml/day or per MD Nutrition Related Findings: no edema; BUN 24, Cr 4.91, GFR 8.8, ca++ 7.8, Phos 2.7, Mag 1.9, Albumin 1.2, Hgb 7.5, Hct 23.3; Collagenase, Merrem, Vancocin, Keppra Wound Type: Pressure Injury (unstageable) Current Nutrition Therapies: Adult diet Dysphagia - Soft and Bite Sized Current Oral Intake Average Meal Intake: 26-50%, 0% Average Supplements Intake: None Ordered Anthropometric Measures: Height: 162.6 cm (5' 4) Current Body Weight: 53.2 kg (117 lb 4.6 oz) Weight Source: Bed Scale Admission Body Weight: 48.3 kg (106 lb 7.7 oz) (bed) Usual Body Weight: 48.9 kg (107 lb 12.8 oz) (Per EMR--> 110# 08/09/23; 105.4# 03/03/24; 112# 06/09/24; 107.8# 08/26/24; 114.4# 10/06/24 bed scale) % Weight Change (Calculated): -1.2 [place] Body Weight (lbs) (Calculated): 120 lbs [place] Body Weight (Kg) (Calculated): 55 kg % [place] Body Weight (Calculated): 97.7 % BMI (kg/m2) (Calculated): 20.1 Weight Adjustment For: No Adjustment BMI Categories: Underweight (BMI less than 22) age over 65 Nutrition Diagnosis: Increased nutrient needs related to increase demand for energy/nutrients as evidenced by wounds, dialysis Nutrition Interventions: Nutrition Education/Counseling: No recommendation at this time Coordination of Nutrition Care: Continue to monitor while inpatient, Speech Therapy Plan of Care discussed with: Rounds Goals: Goals: PO intake 75% or greater, by next RD assessment Nutrition Monitoring and Evaluation: Behavioral-Environmental Outcomes: Knowledge or Skill Food/Nutrient Intake Outcomes: Diet Advancement/Tolerance, Food and Nutrient Intake, Supplement Intake Physical Signs/Symptoms Outcomes: Biochemical Data, GI Status, Fluid Status or Edema, Nutrition Focused Physical Findings, Skin, Weight Discharge Planning: Too soon to determine Kelly Castro RD Contact: *[phone] or via Secure Chat Images from the original note were not included. Hospitalist Progress Note 10/26/2024 Subjective: Admit Date: 10/22/2024 PCP: Roxie Spain Room#: 222-02/222-02 A BRIEF HOSPITAL COURSE: Apoorva Gonzalez is a 74 year old female who presented 10/22 from SNF due to altered mental status. In the ED was noted to be febrile 101.3 at SNF, tachycardic, tachypneic and with elevated WBC. Received IV fluid bolus, antibiotics. Admitted to [facility] for further work up. Critical care consulted the following day as patient remained febrile, tachycardic and tachypneic. WBC count also continuing to increase with worsening anemia. Patient has had multiple admissions 08/14 to 08/24 at [facility] for cardiac arrest, 08/26 to 09/06 at for sepsis believed to be due to an infected right thigh wound and hematoma; [facility] from 09/13 - 10/12/24 due to covid-19, electrolyte derangements, Enterobacter cloacae, Klebsiella pneumonia, Klebsiella oxytocin and VR Enterococcus which were treated for complete course, also, had C. difficile colitis which was treated, had tunneled HD catheter placed on discharge on 10/12. . Patient has PT/OT/ST, Infectious disease, nephrology, and wound care consulted. She was transferred out of ICU services to medical services on 10/24/24. She is currently receiving Meropenem and Vancomycin IV for infected pressure ulcer on left buttocks. Patient is also ESRD and gets T, Th, Sat HD. Patient currently resides at [facility] and will return on discharge Interval History: 10/26/24 Patient poor historian, will answer some questions, per nursing staff she is more alert today, states she is always cold but denies fever/chills, denied N/V/D, denies chest pain or shortness of breath, per patient wound is healing and looks better than it did, spoke of having lots of family, no major complaints of pain Case and plan discussed with patient and bedside nurse. All questions answered. Adult diet Dysphagia - Soft and Bite Sized 24HR INTAKE/OUTPUT: Intake/Output Summary (Last 24 hours) at 10/26/2024 1322 Last data filed at 10/25/2024 1613 Gross per 24 hour Intake 240 ml Output -- Net 240 ml Past Medical History: Medical History[1] LABS: CBC: Recent Labs 10/24/24 0649 10/24/24 1217 10/25/24 0349 10/26/24 0657 WBC 31.2* -- 29.9* 25.4* RBC 1.95* -- 2.39* 2.56* HGB 5.8* 7.5* 6.8* 7.5* HCT 17.9* 23.3* 22.1* 23.3* MCV 91.8 -- 92.5 91.0 RDW 15.8* -- 16.1* 16.3* PLT 316 -- 317 357 BMP: Recent Labs 10/24/24 0649 10/25/24 0349 10/26/24 0657 NA 138 143 143 K 3.5 3.5 3.7 CL 101 103 106 CO2 22* 23 25 BUN 40* 15 24* CREATININE 7.06* 3.49* 4.91* GLUCOSE 62* 69* 88 CALCIUM 7.6* 8.2* 7.8* ANIONGAP 15* 17* 12 LIVER PROFILE: Recent Labs 10/24/24 0649 AST 28 ALT <6 BILITOT 0.5 ALKPHOS 150 PROT 5.6* PT/INR: No results for input(s): PROTIME, INR in the last 72 hours. CARDIAC ENZYMES: No results for input(s): TROPONINI in the last 72 hours. Procalcitonin: No results found for: PROCAL COVID-19 PCR: No results for input(s): COVID19 in the last 72 hours. Objective: Vitals: BP (!) 181/101 Pulse 103 Temp 37.3 C (99.2 F) (Oral) Resp 16 Ht 1.626 m (5' 4) Wt 51.3 kg (113 lb 1.5 oz) SpO2 96% BMI 19.41 kg/m Pulse Ox: SpO2 Av % Min: 96 % Max: 96 % Supplemental O2: Physical Exam Vitals and nursing note reviewed. Constitutional: Appearance: She is ill-appearing. HENT: Head: Normocephalic. Nose: Nose normal. Mouth/Throat: Mouth: Mucous membranes are moist. Eyes: Extraocular Movements: Extraocular movements intact. Conjunctiva/sclera: Conjunctivae normal. Pupils: Pupils are equal, round, and reactive to light. Cardiovascular: Rate and Rhythm: Tachycardia present. Pulmonary: Effort: Pulmonary effort is normal. Breath sounds: Normal breath sounds. Comments: Diminished throughout Abdominal: General: Bowel sounds are normal. Palpations: Abdomen is soft. Musculoskeletal: General: Normal range of motion. Cervical back: Normal range of motion. Right lower leg: Edema present. Left lower leg: Edema present. Comments: Appears weak Skin: General: Skin is warm and dry. Neurological: Mental Status: She is alert. Comments: More alert per staff, answering questions, Psychiatric: Mood and Affect: Mood normal. Behavior: Behavior normal. Medications: Scheduled PRN Scheduled Meds[2] PRN Meds[3] Continuous Continuous Meds[4] Assessment Data: (CAT1) Reviewed 3 or more notes from different specialty or health system (each=1). (CAT1) Reviewed 3 or more labs/studies ordered by another provider not previously counted (each=1, panels count as 1). (CAT1) Ordered 3 or more new labs and/or studies (each=1, panels count as 1). (CAT2) EKG reviewed & showed ST as interpreted by me. (CAT2) CXR reviewed & showed bibasilar infiltrates or effusions mild congestive heart failure as interpreted by me. (LOW: 2x CAT1 or independent historian MOD: 3x CAT1 or 1x CAT3 EXTENSIVE: 3x CAT1 and 1x CAT3) Acute, acute on chronic, unstable/uncontrolled chronic problems/diagnoses: Sever sepsis HAGMA Encephalopathy ESRD on HD-T, , S Acute on chronic normocytic anemia Left buttocks pressure ulcer stage 3 Severe malnutrition dysphagia Stable chronic problems affecting care, new non-acute diagnoses: Seizure disorder- on Keppra HTN HLD Debility Recent CD[facility]-treated at [facility] Plan As a result of the above findings & factors, the following mgmt was pursued: - Severe sepsis is improving, likely related to left buttocks pressure wound that has enterobacter cloacae complex - BC negative after 72 hours - Encephalopathy likely from sepsis, improving, more alert today per nursing staff - ID following, continue IV Meropenem and Vancomycin - HAGMA improving - wound care is following for pressure ulcer - chronic anemia, had 1 unit PRBC on 10/24/24, was 6.8 yesterday, awaiting to transfuse with dialysis but today she is 7.5, will hold off on transfusing blood for now - ESRD T, , S-in session this morning - Nephrology following - ST/PT/OT following, ok for bite sized soft diet, thin liquids, help with meals - Severe malnutrition, dietary is following - BP has been elevated, added on Amlodipine today, has PRN BP meds with parameters - home medications resumed - am labs, replace lytes prn - PT/OT/CM/SW - delirium precautions: limit nighttime disturbances - DVT prophylaxis: SCDs and encourage ambulation Complexity: Chronic illness with mild to moderate exacerbation, progression, or side effect of tx (MOD). Acute illness with systemic symptoms (MOD). Risk: Prescription drug/IVF/colloid was initiated, discontinued, adjusted; or reviewed with decision to maintain current orders (MOD). Advance Directive: Full Code Anticipated Discharge - Date - TBD - Location - Skilled Facility - Pending the following - improvement Toxic drug monitoring/narrow therapeutic index drug monitoring : # Drug name : # Route administered : # Method of monitoring : Extended Emergency Contact Information Primary Emergency Contact: Deshawn Crystal Mobile Relation: Brother Technical Coordinator needed? No Secondary Emergency Contact: Edward Ruggiero Mobile Relation: Significant Other Preferred language: Cambodian Technical Coordinator needed? No PARK Ureña CNP Division of Hospitalist Medicine [facility] [1] Past Medical History: Diagnosis Date Chronic kidney disease (CKD) Hemodialysis patient (CMS/HCC) (HCC) Wednesday, , Wednesday History of blood transfusion 02/27/2022 Hypertension Seizure (HCC) Developed seizure-like activity on 02/24 during hospital admission [2] amLODIPine, 5 mg, Oral, Daily chlorhexidine, , Topical, Daily collagenase, , Topical, Daily heparin, 5,000 Units, SubCUTAneous, 2 times per day levETIRAcetam, 500 mg, IntraVENous, Daily meropenem, 1,000 mg, IntraVENous, q12h mupirocin, , Nasal, BID [Held by provider] sevelamer carbonate, 800 mg, Oral, TID WC sodium chloride 0.9%, 5-40 mL, IntraVENous, 2 times per day sodium chloride 0.9%, 5-40 mL, IntraCATHeter, q8h vancomycin (Vancocin) intermittent dosing (placeholder), , Other, RX Placeholder [3] PRN medications: acetaminophen OR acetaminophen, acetaminophen, collagenase, dextrose, dextrose, glucagon (rDNA), glucose, heparin, heparin, heparin, heparin, hydrALAZINE, labetalol, ondansetron ODT OR ondansetron, polyethylene glycol (PEG) 3350, sodium chloride, sodium chloride, sodium chloride 0.9%, sodium chloride 0.9% [4] [facility] PROGRESS NOTE Subjective Interval History: Apoorva Gonzalez is being followed for ESRD. Pt has been seen during dialysis session. Using TDC Qb 400. BP is high, she is tachycardic. On RA. Confused Medications Current Medications[1] Objective Physical Exam Awake, confused, appears upset Heart is tachycardic, regular No edema Vital signs in last 24 hours: Temp: [37.1 C (98.8 F)-37.6 C (99.6 F)] 37.3 C (99.2 F) Heart Rate: [100-111] 109 Resp: [14-16] 14 BP: (139-196)/(82-109) 196/103 Intake/Output this shift: No intake/output data recorded. Intake/Output last 3 shifts: I/O last 3 completed shifts: In: 240 (4.7 mL/kg) [P.O.:240] Out: - (0 mL/kg) Weight: 51.3 kg Labs: Results from last 7 days Lab Units 10/26/24 0657 WBC AUTO 10*3/uL 25.4* RBC AUTO 10*6/uL 2.56* HEMOGLOBIN g/dL 7.5* HEMATOCRIT % 23.3* Results from last 7 days Lab Units 10/26/24 0657 10/25/24 0349 10/24/24 0649 SODIUM mmol/L 143 < > 138 POTASSIUM mmol/L 3.7 < > 3.5 CHLORIDE mmol/L 106 < > 101 CO2 mmol/L 25 < > 22* BUN mg/dL 24* < > 40* CREATININE mg/dL 4.91* < > 7.06* CALCIUM mg/dL 7.8* < > 7.6* PHOSPHORUS mg/dL 2.7 < > 4.6 MAGNESIUM mg/dL 1.9 < > 1.9 BILIRUBIN TOTAL mg/dL -- -- 0.5 ALT U/L -- -- <6 AST U/L -- -- 28 < > = values in this interval not displayed. Results from last 7 days Lab Units 10/22/24 1451 COLOR U Light Richardson* CLARITY U Clear PH U pH 8.5* PROTEIN U MG/DL mg/dL 300* BLOOD U mg/dL Negative NITRITE U Negative WBC UR HPF /HPF 3-5 BACTERIA UR HPF /HPF Few* Assessment/Plan Principal Problem: Sepsis, due to unspecified organism, unspecified whether acute organ dysfunction present (HCC) ESRD Stable on dialysis Euvolemia Access TDC Normokalemia AVF has clotted Tachycardic Plan Next HD Wednesday Radha Meza MD 10/26/2024 11:29 AM [1] Current Facility-Administered Medications: acetaminophen (Tylenol) tablet 650 mg, 650 mg, Oral, q6h PRN, 650 mg at 10/25/242048 OR acetaminophen (Tylenol) suppository 650 mg, 650 mg, Rectal, q6h PRN, Kaylin Thomas DO, 650 mg at 10/23/24 1515 acetaminophen (Tylenol) tablet 650 mg, 650 mg, Oral, q6h PRN, Kaylin Thomas DO chlorhexidine (Hibiclens) 4 % solution, , Topical, Daily, Kaylin Thomas DO, Given at 10/25/24 1503 collagenase 250 UNIT/GM ointment, , Topical, PRN, Kaylin Thomas DO collagenase 250 UNIT/GM ointment, , Topical, Daily, Kaylin Thomas DO, Self Administered Via Pump at 10/25/24 0829 dextrose 5 % infusion, 100 mL/hr, IntraVENous, PRN, Kaylin Thomas DO dextrose 50 % solution 12.5 g, 12.5 g, IntraVENous, PRN, Kaylin Thomas DO, 12.5 g at 10/24/24 0654 glucagon (human recombinant) injection 1 mg, 1 mg, IntraMUSCular, PRN, Kaylin Thomas DO glucose oral gel 15 g, 15 g, Oral, PRN, Kaylin Thomas DO heparin injection 1,200-2,000 Units, 1,200-2,000 Units, IntraCATHeter, PRN, Kaylin Thomas DO heparin injection 1,200-2,000 Units, 1,200-2,000 Units, IntraCATHeter, PRN, Kaylin Thomas DO heparin injection 1,200-2,000 Units, 1,200-2,000 Units, IntraCATHeter, PRN, Kaylin Thomas DO, 2,000 Units at 10/24/24 1240 heparin injection 1,200-2,000 Units, 1,200-2,000 Units, IntraCATHeter, PRN, Kaylin Thomas DO, 2,100 Units at 10/24/24 1240 heparin injection 5,000 Units, 5,000 Units, SubCUTAneous, 2 times per day, Kaylin Thomas DO, 5,000 Units at 10/25/242048 labetalol (Normodyne,Trandate) injection 10 mg, 10 mg, IntraVENous, q4h PRN, Kaylin Thomas DO, 10 mg at 10/26/24 1125 levETIRAcetam in sodium chloride (Keppra) IVPB 500 mg, 500 mg, IntraVENous, Daily, Kaylin Thomas DO, Stopped at 10/26/24 1125 meropenem (Merrem) 1,000 mg in sodium chloride 0.9 % 100 mL IVPB, 1,000 mg, IntraVENous, q12h, Kaylin Thomas DO, Last Rate: 33.3 mL/hr at 10/26/24 0958, 1,000 mg at 10/26/24 0958 mupirocin (Bactroban) 2 % ointment, , Nasal, BID, Kaylin Thomas DO, Given at 10/26/24 0957 ondansetron ODT (Zofran-ODT) disintegrating tablet 4 mg, 4 mg, Oral, q8h PRN OR ondansetron (Zofran) injection 4 mg, 4 mg, IntraVENous, q6h PRN, Kaylin Thomas DO polyethylene glycol (PEG) 3350 (Miralax) packet 17 g, 17 g, Oral, Daily PRN, Kaylin Thomas DO [Held by provider] sevelamer carbonate (Renvela) tablet 800 mg, 800 mg, Oral, TID WC, Kaylin Thomas DO sodium chloride 0.9 % infusion, 5-250 mL/hr, IntraVENous, PRN, Kaylin Thomas DO sodium chloride 0.9 % infusion, 250 mL/hr, IntraVENous, PRN, Kaylin Thomas DO sodium chloride 0.9% (NS) flush 5-40 mL, 5-40 mL, IntraVENous, 2 times per day, Kaylin Thomas DO, 10 mL at 10/26/24 0958 sodium chloride 0.9% (NS) flush 5-40 mL, 5-40 mL, IntraVENous, PRN, Kaylin Thomas DO sodium chloride 0.9% (NS) flush 5-40 mL, 5-40 mL, IntraCATHeter, q8h, Kaylin Thomas DO, 10 mL at 10/26/24 0222 sodium chloride 0.9% (NS) flush 5-40 mL, 5-40 mL, IntraVENous, PRN, Kaylin Thomas DO vancomycin (Vancocin) intermittent dosing (placeholder), , Other, RX Placeholder, Kaylin Thomas DO Images from the original note were not included. Pharmacy Managed Vancomycin Dosing Service Progress Note Consult Date: 10/26/24 Patient Name: Apoorva Gonzalez Allergies: Patient has no known allergies. Age: 74 y.o. Sex: female Ht: Height: 162.6 cm (5' 4) TBW: Weight: 51.3 kg (113 lb 1.5 oz) BMI: Body mass index is 19.41 kg/m . Lab Results Component Value Date CREATININE 4.91 (H) 10/26/2024 CREATININE 3.49 (H) 10/25/2024 BUN 24 (H) 10/26/2024 BUN 15 10/25/2024 WBC 25.4 (H) 10/26/2024 WBC 29.9 (H) 10/25/2024 Renal: [x]HD []CRRT []PD [] CrCl ml/min (if ROLANDO, no GARMENT ALTERATION EXAMINER) Infectious Diagnosis: sepsis (target level = mg/L) Antimicrobials: Patient recently received an antibiotic (last 12 hours) Date/Time Action Medication Dose Rate 10/25/24 2249 New Bag meropenem (Merrem) 1,000 mg in sodium chloride 0.9 % 100 mL IVPB 1,000 mg 33.3 mL/hr Assessment/Plan: Intermittent vancomycin dosing (Pulse Dosing). Lab Results Component Value Date VANCORANDOM 19.7 10/24/2024 No Vancomycin dose today. patient's R level is 27.2 mcg/ml and based on the Vancomycin dosing guide if Pre-HD Level> 25 mcg/ml no dose-recheck R level before of after (4 hours post) next HD. Will check R level pre-next HD. Will adjust dose/frequency if needed according to level. Follow renal status closely. Orders placed. Thank you for this consult. Please page/call with questions. Date: 10/26/24 Time: 9:34 AM Won Gutiérrez PharmD (available on [employer]) Images from the original note were not included. Speech-Language Pathology SPEECH LANGUAGE PATHOLOGY [facility] Dysphagia Treatment Note Patient Name: Apoorva Gonzalez Evaluation Date: 10/26/2024 Date of : 1950 Admission Date: 10/22/2024 12:48 PM Age: 74 y.o. Room/Bed: 222/ A Subjective Patient alert, confused and some agitiation. Seen upright in bed, after repositioning. Answers few basic questions with clear vocal quality. Follows few basic commands. No visitors at bedside. Spoke with RN Ana who cleared pt for treatment. Current Diet: Dietary Orders (From admission, onward) Start Ordered 10/25/24 1441 Adult diet Dysphagia - Soft and Bite Sized Diet effective now Question: Diet type Answer: Dysphagia - Soft and Bite Sized 10/25/24 1440 Aspiration Precautions: - Upright positioning for all PO intake - 1:1 Assistance - PO only when fully alert - Alternate solid and liquids Oxygen: Oxygen Therapy: None (Room air) I want my coffee Pain: Pt denies any current pain. PPE Worn: gown, gloves Objective & Assessment Dysphagia Treatment Dysphagia Activity 1: Assess tolerance of recommended diet. Pt was very alert. Alert and oriented to self only. Unable to consistently assist with self feeding. Attempt to take lid off her coffee. Later holding cup and would not let go. Assist d/t pt later not paying attention and her cup will fall. Place lid back on and did not allow pt to hold without supervision for safety. Multiple attempts to remove cup from hand as pt did not want to let go. Pt initially taking single small bites of eggs, bites of cream of wheat and cup drinks of coffee. Functional oral clearing with soft foods. She did not initially need liquid chaser to clear oral residuals. Decreased attention to eating after she started drinking coffee with decreased interest in bite, spitting out and not accepting. PO remains limited and reported by RN as well. Continue 1:1 assist for feeding. Pt unable to reason and is confused or thoughts, recall and orientation. Plan & Recommendations Plan: Continue dysphagia POC. ST will continue advanced diet trials if appropriate. Recommend Soft and bite-sized solids and Thin liquids and meds whole in puree and the following precautions: - Upright positioning for all PO intake - 1:1 Assistance - PO only when fully alert - Alternate solid and liquids as necessary -Watch for swallow between bites D/C Recommendations: to be determined Education Education Given: swallowing strategies, orientation and safety concerns Given To: patient Response: no evidence of learning Goals Patient Stated Goal: To drink my coffee. Encounter Problems Encounter Problems (Active) Swallowing Patient will tolerate the least restrictive diet consistency to allow for safe consumption of daily meals (Progressing) Start: 10/24/24 Expected End: 11/07/24 Patient will demonstrate safe swallowing Intervention/techniques (Progressing) Start: 10/24/24 Expected End: 11/07/24 Patient will use appropriate strategies for increased oralpharyngeal swallow function (Progressing) Start: 10/24/24 Expected End: 11/07/24 Therapy Time CAREER RESOURCE SPECIALIST Individual Minutes Time In: 08 Time Out: 911 Minutes: 22 NIRU Quiroz Images from the original note were not included. [facility] - Infectious Diseases Attending Progress Note Subjective: Follow up for severe sepsis, encephalopathy, Infected left buttock pressure ulcer due to enterobacter cloacae complex, r/o infected left arm graft site. She was seen, found her laying on bed, more alert, fever and tachypnea decreased but remained tachycardic, she appeared confused and chronically ill. She was admitted on 10/22/24 from SNF due to fever of 101.3 F increased weakness, and altered mental status; on presentation, she was diaphoretic, had stage III pressure ulcer on left buttock, tachycardic P 120, tachypneic R 22; labs showed leukocytosis 20.2k, CXR showed bibasilar infiltrates and effusions; pip/tazo and vancomycin were given initially. She has had multiple recent hospital admissions; hospitalized from 08/14 - 08/24 at [facility] for cardiac arrest and sepsis and again from 08/26 to 09/06 at for sepsis believed to be due to an infected right thigh wound and hematoma; again at [facility] from 09/13 - 10/12/24 due to covid-19, electrolyte derangements, Enterobacter cloacae, Klebsiella pneumonia, Klebsiella oxytocin and VR Enterococcus which were treated for complete course, also, had C. difficile colitis which was treated, had tunneled HD catheter placed on discharge on 10/12. She has h/o ESRD on HD, seizure disorder and alcohol use. She was examined; notes, labs, imaging were reviewed; treatment plan was discussed, clinical informations were documented in electronic record. Objective: Vitals: Patient Vitals for the past 24 hrs: BP Temp Temp src Pulse Resp SpO2 Weight 10/25/24 1348 151/85 -- -- 104 -- -- -- 10/25/24 1139 -- -- -- 104 -- -- -- 10/25/24 1125 (!) 170/98 -- -- -- -- -- -- 10/25/24 0826 -- 37.1 C (98.8 F) Oral -- -- 95 % -- 10/25/24 0802 156/88 -- -- 103 16 -- -- 10/25/24 0634 (!) 178/102 -- -- 104 -- -- -- 10/25/24 0610 (!) 198/98 36.6 C (97.9 F) Oral 106 16 99 % -- 10/25/24 0608 (!) 198/98 -- -- 112 -- -- -- 10/25/24 0544 (!) 188/110 -- -- 111 16 -- -- 10/25/24 0050 -- -- -- -- -- -- 51.3 kg (113 lb 1.5 oz) 10/25/24 0002 (!) 166/94 -- -- 103 16 -- -- 10/24/24 2142 153/82 -- -- 103 18 -- -- 10/24/24 2114 (!) 176/91 -- -- 118 22 -- -- 10/24/24 211 (!) 176/91 37.1 C (98.8 F) Oral 120 15 99 % -- 10/24/24 2112 (!) 185/87 -- -- 117 18 -- -- Physical Exam Vitals and nursing note reviewed. Constitutional: General: She is not in acute distress. Appearance: She is ill-appearing. Comments: more alert HENT: Mouth/Throat: Pharynx: Oropharynx is clear. Eyes: Conjunctiva/sclera: Conjunctivae normal. Cardiovascular: Rate and Rhythm: tachycardia present. Heart sounds: No murmur heard. Pulmonary: Effort: Pulmonary effort is normal. No respiratory distress. Breath sounds: No wheezing or rales. Comments: Tachypnea decreased Abdominal: General: Bowel sounds are normal. Tenderness: There is no abdominal tenderness. Comments: Left lower quadrant - mass under skin Musculoskeletal: General: Swelling, tenderness and signs of injury present. Left arm graft site discharge, r/o infection. Comments: Sacral wound Skin: General: Skin is warm. Capillary Refill: Capillary refill takes less than 2 seconds. Comments: Stage III pressure ulcer on Lt buttock. No surrounding erythema or crepitus Neurological: General: No focal deficit present. Mental Status: She is alert. She is disoriented. Motor: Weakness present. Labs: Recent Labs 10/23/24 0052 10/24/24 0649 10/25/24 0349 NA 134* 138 143 K 3.5 3.5 3.5 CL 95* 101 103 CO2 27 22* 23 BUN 31* 40* 15 CREATININE 5.78* 7.06* 3.49* GLUCOSE 72* 62* 69* CALCIUM 7.9* 7.6* 8.2* PROT 6.0* 5.6* -- BILITOT 0.7 0.5 -- ALKPHOS 162* 150 -- AST 34* 28 -- ALT <6 <6 -- Recent Labs 10/23/24 0052 10/24/24 0649 10/24/24 1217 10/25/24 0349 WBC 35.0* 31.2* -- 29.9* HGB 6.9* 5.8* 7.5* 6.8* HCT 21.6* 17.9* 23.3* 22.1* PLT 355 316 -- 317 LYMPHOPCT 1* 3* -- 4* MONOPCT 2* 3* -- 4* BASOPCT 0 1 -- 1 Micro: No results for input(s): COVID19 in the last 72 hours. 10/24/2024 0958 10/24/2024 1005 Aerobic and Anaerobic Culture with Stain [[id number]] Drainage from Arm, Left In process Component Value No component results 10/24/2024 0958 10/24/2024 1439 Culture, Aerobic Bacteria with Gram Stain [[id number]] Drainage from Arm, Left Preliminary result Component Value Culture Culture in progress P Gram Stain Result Many Polymorphonuclear leukocytes per low power field P No organisms seen P 10/24/2024 0958 10/24/2024 1005 Anaerobic culture [[id number]] Drainage from Arm, Left In process Component Value No component results 10/22/2024 2305 10/24/2024 0401 Blood culture Site #1 - Suspected Infection [[id number]] Blood, Venous Preliminary result Component Value Blood Culture No growth at 24 hours P 10/22/2024 1705 10/23/2024 2101 Blood culture Site #2 - Suspected Infection [[id number]] Blood, Venous Preliminary result Component Value Blood Culture No growth at 24 hours P 10/22/2024 1602 10/22/2024 2123 Respiratory Pathogens Panel by PCR [[id number]] Swab from Nasopharynx Final result Component Value SARS-CoV-2 Not Detected Adenovirus Not Detected Coronavirus HKU1 Not Detected Coronavirus NL63 Not Detected Coronavirus 229E Not Detected Coronavirus OC43 Not Detected Human Metapneumovirus Not Detected Human Rhinovirus/Enterovirus Not Detected Influenza A Not Detected Influenza B Not Detected Parainfluenza 1 Not Detected Parainfluenza 2 Not Detected Parainfluenza 3 Not Detected Parainfluenza 4 Not Detected Respiratory Syncytial Virus Not Detected Bordetella pertussis Not Detected Bordetella parapertussis Not Detected Chlamydia pneumoniae Not Detected Mycoplasma pneumoniae Not Detected 10/22/2024 1434 10/22/2024 1458 Aerobic and Anaerobic Culture with Stain [[id number]] (Abnormal) Other from Buttock, Left In process Component Value No component results 10/22/2024 1434 10/24/2024 1028 Culture, Aerobic Bacteria with Gram Stain [[id number]] (Abnormal) Other from Buttock, Left Preliminary result Component Value Culture Few skin camilo present P Many Enterobacter cloacae complex Abnormal P Gram Stain Result Rare Polymorphonuclear leukocytes per low power field Abnormal P Many Gram negative bacilli Abnormal P 10/22/2024 1434 10/22/2024 1458 Anaerobic culture [[id number]] Other from Buttock, Left In process Component Value No component results 10/22/2024 1411 10/23/2024 2101 Blood culture Site #1 - Suspected Infection [[id number]] Blood, Venous Preliminary result Component Value Blood Culture No growth at 24 hours P 10/09/2024 1541 10/14/2024 0950 Aerobic and Anaerobic Culture with Stain [[id number]] Drainage from Fistula Final result Component Value No component results 10/09/2024 1541 10/12/2024 0920 Culture, Aerobic Bacteria with Gram Stain [[id number]] Drainage from Fistula Final result Component Value Culture No growth at 72 hours Gram Stain Result Moderate Polymorphonuclear leukocytes per low power field No organisms seen 10/09/2024 1541 10/14/2024 0950 Anaerobic culture [[id number]] Drainage from Fistula Final result Component Value Culture No growth at 5 days 10/05/2024 1601 10/05/2024 1713 Respiratory culture and Stain [[id number]] (Abnormal) Sputum from Bronchus Final result Component Value Respiratory culture Culture canceled due to poor specimen quality. Recollect if clinically indicated. Gram Stain Result Rare Polymorphonuclear leukocytes per low power field Abnormal Many Epithelial cells per low power field Abnormal Moderate Gram positive bacilli Abnormal Few Gram positive cocci Abnormal Few Yeast Abnormal Smear contains >= 15 squamous cells per low power field, suggestive of poor quality. Culture not performed. Please re-collect if clinically indicated. Abnormal 10/05/2024 1601 10/05/2024 1747 Respiratory Pathogens Panel by PCR [[id number]] Swab from Nasopharynx Final result Component Value SARS-CoV-2 Not Detected Adenovirus Not Detected Coronavirus HKU1 Not Detected Coronavirus NL63 Not Detected Coronavirus 229E Not Detected Coronavirus OC43 Not Detected Human Metapneumovirus Not Detected Human Rhinovirus/Enterovirus Not Detected Influenza A Not Detected Influenza B Not Detected Parainfluenza 1 Not Detected Parainfluenza 2 Not Detected Parainfluenza 3 Not Detected Parainfluenza 4 Not Detected Respiratory Syncytial Virus Not Detected Bordetella pertussis Not Detected Bordetella parapertussis Not Detected Chlamydia pneumoniae Not Detected Mycoplasma pneumoniae Not Detected Lines: LSC HD cath, LIJ picc sites ok Radiography/Echo/Other: IR nontunneled catheter placement [[id number]] Collected: 10/23/24 1115 Order Status: Completed Updated: 10/23/241117 Narrative: Patient Name: APOORVA GONZALEZ : 1950 Exam Date/Time: 10/23/2024 10:26 Procedure: IR NONTUNNELED CATHETER PLACEMENT Ordering Provider: ZAMBRANO CANDICE Reason For Exam: IV access CLINICAL HISTORY: Venous access needed Procedures: Left sided central line placement Physician: Jordon MEDICATIONS: Local Lidocaine EBL: Minimal. Contrast: None Specimen sent: None COMPLICATIONS: None Fluoroscopy Time: Less than 0.1 minutes Angiographic runs: 0 Fluoroscopic spot images: 0 Fluoroscopy dose: Ka,r = 0 mGy Fluoroscopic saved images were obtained. These images do NOT add additional exposure to ionizing radiation and were captured electronically from the imaging chain. Procedural details: Prior to the procedure red rules were performed which included patient name, date of , and procedure type. All of the risk, benefits, and alternative treatments were explained to the patient and informed consent was obtained and documented. The patient was brought into the interventional radiology suite. The left neck was prepped and draped in the usual sterile fashion. Maximal sterile barrier technique was utilized. All elements of maximal sterile barrier technique were used including a hat, mask, sterile gown, sterile gloves, and a sterile drape. Appropriate hand hygiene using 2 percent chlorhexidine for cutaneous antisepsis was utilized. A sterile ultrasound probe cover and sterile ultrasound gel was utilized. The overlying subcutaneous tissues were anesthetized using one percent lidocaine. Under direct ultrasound visualization, a 21-gauge micropuncture needle puncture needle was advanced into the left external jugular vein. A permanent ultrasound image of needle entry into the vessel was stored to the patient record. A 0.018 micro puncture wire was advanced through the needle and into the central circulation. This was exchanged for 0.035 J-wire. The J-wire was advanced into the IVC. A spot image was obtained. The tract was then dilated and a new triple lumen central line was advanced over the wire. Postplacement fluoroscopy demonstrated appropriate position of the central line. The patient tolerated the procedure well. There were no immediate complications. FINDINGS: Tip of new central line terminates at the cavoatrial junction. Impression: Successful uncomplicated ultrasound and fluoroscopically guided left sided central line placement. The catheter is ready for immediate use. Attending physician was present throughout the entirety of the procedure. Report Dictated on Electronically Signed By: Balta Ruvalcaba MD Electronically Signed Date/Time: 10/23/2024 11:17 AM EDT XR chest 1 view [[id number]] Collected: 10/22/24 154 Order Status: Completed Updated: 10/22/24 154 Narrative: Patient Name: APOORVA GONZALEZ : 1950 Exam Date/Time: 10/22/2024 15:17 Procedure: XR CHEST 1 VIEW Ordering Provider: MONTOYA SAMUEL Reason For Exam: sepsis CLINICAL INFORMATION: Shortness of breath. Sepsis. Renal failure. Portable view of the chest at 1535 hours is provided and compared to a previous study dated October 05, 2024. FINDINGS: A tunneled hemodialysis catheter is in place via the left internal jugular vein. The distal tip is in the superior vena cava. The cardiac silhouette and mediastinum are otherwise unremarkable. Bibasilar infiltrates and effusions are noted. There is prominence of the interstitium and central pulmonary vasculature. Impression: 1. Bibasilar infiltrates and effusions. 2. Prominence of the interstitial and central pulmonary vasculature consistent with mild to moderate congestive heart failure/fluid overload. 3. Overall improvement in the aeration of the lungs when compared to the previous study. Report Dictated on Electronically Signed By: Honorio Henson MD Electronically Signed Date/Time: 10/22/2024 3:46 PM EDT IR CVC Tunneled Dialysis Cath Exchange [[id number]] Collected: 10/12/24 1344 Order Status: Completed Updated: 10/12/241346 Narrative: Patient Name: APOORVA GONZALEZ : 1950 Exam Date/Time: 10/12/2024 11:51 Procedure: IR CVC TUNNELED DIALYSIS CATH EXCHANGE Ordering Provider: CASTANEDA RUPESH Reason For Exam: ESRD CLINICAL HISTORY: Renal failure. PROCEDURE: Fluoroscopic and ultrasound-guided left tunneled dialysis catheter placement. Physicians: Dr. Andrade. MEDICATIONS: Local lidocaine EBL: Minimal. Specimen sent: None. Complications: None. Fluoroscopy time: 0.3 minutes Angiographic runs: 0 Fluoroscopic spot images: 0 Total Air Kerma: 0.58 mGy Fluoroscopic saved images were obtained. These images do NOT add additional exposure to ionizing radiation and were captured electronically from the imaging chain. Procedural details: All of the risks, benefits, alternatives of the procedure were explained to the patient and all of the patient's questions were answered. The patient was brought into the interventional radiology suite and placed supine on the table. A timeout was performed. Patient's existing left-sided temporary dialysis catheter is too cranial for successful conversion. The patient's left internal jugular vein was interrogated with ultrasound and found to be widely patent. A permanent ultrasound image was stored to the patient's record. The patient's left neck and chest were prepped and draped in the usual sterile fashion. Maximal sterile barrier technique was utilized. All elements of maximal sterile barrier technique including a mask, hat, sterile gown, sterile gloves, and large sterile sheet were utilized. 2% Chlorhexidine antiseptic was utilized for skin sterilization. Sterile ultrasound gel and a sterile ultrasound probe cover were also used. The subcutaneous tissues were anesthetized using 2 percent lidocaine. Under direct ultrasound visualization, a 21-gauge micropuncture needle was advanced into the left internal jugular vein. A permanent ultrasound image of needle entry into the vessel was stored to the patient record. A 0.018 micro puncture wire was then advanced through the needle and into the IVC under fluoroscopic guidance. A spot image was obtained. This was upsized to a 0.035 J-wire. Attention was then directed to the patient's left chest. A subcutaneous tract was created in the left chest to the venotomy site after subcutaneous anesthesia using 2 percent lidocaine. A 28 cm Quentin split tip tunneled dialysis catheter was then pulled through the tunnel and out the venotomy site. A peel-away sheath was then advanced over the wire into the central circulation after serial dilatation. The catheter was placed through the peel-away sheath. Postplacement imaging showed proper positioning of the tunneled dialysis catheter with the tip terminating in the proximal right atrium. Both lumens of the catheter flushed and aspirated appropriately. The catheter was then sutured to the patient's skin using 2-0 silk suture. The venotomy site was closed using skin glue. The patient tolerated the procedure well. FINDINGS: Tip of tunneled dialysis catheter terminates within the proximal right atrium. Impression: Successful uncomplicated ultrasound and fluoroscopic guided placement of a 28 cm tunneled dialysis catheter. The catheter is ready for immediate use. The sutures should not be removed for two weeks. The patient was then transferred to recovery in stable condition. 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 Could not Declot today. PROCEDURE: Venous Access, Nontunneled central venous catheter exchange Procedural Personnel Attending physician(s): Franco Majano DR Indication: Renal insufficiency Additional clinical history: Thrombosed left upper extremity graft Complications: No immediate complications. Impression: 1. Thrombosed left upper extremity graft. Purulent fluid seen leaking from prior access site, precluding thrombectomy. 2. Right IJ occluded cranially with small cysts dump distally which could not be accessed due to clavicular shadowing and patient movement. 3. Successful left-sided internal jugular temporary central venous catheter exchange for a new dialysis catheter, with its tip in the expected location of the cavoatrial junction. Plan: The catheter may be used immediately. PROCEDURE SUMMARY: -Temporary central venous catheter exchange with fluoroscopic guidance -Ultrasound-guided right IJ venous access - Diagnostic venography of the right IJ PROCEDURE DETAILS: Pre-procedure Consent: Informed consent for the procedure including risks, benefits and alternatives was obtained and time-out was performed prior to the procedure. Preparation (MIPS): The site was prepared and draped using all elements of maximal sterile barrier technique including sterile gloves, sterile gown, cap, mask, large sterile sheet, sterile ultrasound probe cover, hand hygiene and cutaneous antisepsis with 2% chlorhexidine. Medical reason for site preparation exception (MIPS): Not applicable Anesthesia/sedation Level of anesthesia/sedation: No sedation Right IJ access Local anesthesia was administered. The vessel was sonographically evaluated and determined to be patent distally. Real time ultrasound was used to visualize needle entry into the vessel and a permanent image was stored. Vein accessed: Internal jugular vein Access technique: Micropuncture set with 21 gauge needle Right IJ Venography Indication for venography: Diagnostic venography due to suspected stenosis or occlusion Catheter tip position for venography: Distal right IJ Venous segment imaged: Distal right IJ Findings: Occlusion of the right IJ cranially. A cross collateral venous varix extends into a stump of the patent distal right IJ Left IJ Catheter exchange A wire was passed through the indwelling tunneled central venous catheter and into the central veins. The catheter was removed, and a new catheter was advanced under fluoroscopic guidance. Catheter tip location was fluoroscopically verified and a permanent image was stored. Catheter placed: 13.5 Fr 20 cm triple-lumen Dialysis Catheter Catheter tip position: Cavoatrial junction. Catheter flush: Heparin (100 units/mL) Closure The catheter was secured. A sterile dressing was applied. Catheter securement technique: Non-absorbable suture Contrast Contrast agent: None Contrast volume (mL): 0 Radiation Dose Fluoroscopy time (minutes): 2.6 Fluoroscopy Dose: Ka,r = 5.1 mGy Additional Details Additional description of procedure: None Equipment details: None Specimens removed: None Estimated blood loss (mL): Less than 10 Report Dictated on Electronically Signed By: Franco Majano DR Electronically Signed Date/Time: 10/09/2024 3:[address] head wo IV contrast [[id number]] Collected: 10/06/24313 Order Status: Completed Updated: 10/06/24326 Narrative: Patient Name: APOORVA GONZALEZ : 1950 Exam Date/Time: 10/05/2024 23:23 Procedure: CT HEAD WO IV CONTRAST Ordering Provider: CARABALLO GEORGE Reason For Exam: AMS EXAMINATION: CT HEAD WO IV CONTRAST HISTORY: AMS - - - - - [id number] - - - - change in mental status. Fever. Malignant hypertension TECHNIQUE: CT head without contrast. Dose reduction was employed with automated exposure control. COMPARISON: September 26, 2024 RESULT: Acute change: No evidence of an acute intracranial process. Hemorrhage: No evidence of acute intracranial hemorrhage. Mass Lesion / Mass Effect: No evidence of an intracranial mass, extra-axial fluid collection, or significant localized mass effect. Chronic change: Patchy foci of low attenuation coefficient are present within the supratentorial white matter which is a nonspecific finding but likely represents moderate microvascular ischemia. Parenchyma: There is moderate generalized volume loss. The brain parenchyma is otherwise within normal limits for age. Ventricles: Commensurate with volume loss. Other: The calvarium, skull base, imaged paranasal sinuses, mastoids, orbits and extracranial soft tissues are unremarkable. Engagement Specialist (topogram) images: No additional findings. Impression: No CT evidence of an acute intracranial abnormality. Report Dictated on Electronically Signed By: Kev Goldstein MD Electronically Signed Date/Time: 10/06/2024 3:[address] chest abdomen pelvis with contrast [[id number]] Collected: 10/06/24850 Order Status: Completed Updated: 10/06/24903 Narrative: [facility] 1950 [id number] Exam Date/Time: 10/05/2024 23:23 Procedure: CT CHEST ABDOMEN PELVIS W CONTRAST Ordering Provider: CARABALLO GEORGE Reason For Exam: Sepsis EXAM: CT Chest, Abdomen and Pelvis With Intravenous Contrast CLINICAL INDICATION: Sepsis TECHNIQUE: Axial computed tomography images of the chest, abdomen and pelvis with intravenous contrast. This CT exam was performed using one or more of the following dose reduction techniques: automated exposure control, adjustment of the mA and/or kV according to patient size, and/or use of iterative reconstruction technique. COMPARISON: 09/26/2024, 09/14/2024 FINDINGS: CHEST: LUNGS AND PLEURAL SPACES: Large bilateral pleural effusions with adjacent passive atelectasis mildly increased compared to 09/26/2024. No pneumothorax. No new areas of consolidation. No suspicious pulmonary nodules or masses. HEART: Unremarkable. No cardiomegaly. No significant pericardial effusion. No significant coronary artery calcifications. THYROID: Several subcentimeter right-sided thyroid nodules. These do not require any additional follow-up given patient age. ABDOMEN: LIVER: Unremarkable. No mass. GALLBLADDER AND BILE DUCTS: Gallbladder is prominent in size. No calcified stones. PANCREAS: Unremarkable. No ductal dilation. No mass. SPLEEN: Unremarkable. No splenomegaly. ADRENALS: Unremarkable. No mass. KIDNEYS AND URETERS: Atrophic kidneys. No hydronephrosis. No solid mass. STOMACH AND BOWEL: Mild sigmoid diverticulosis. No obstruction. No mucosal thickening. PELVIS: APPENDIX: Appendix not visualized however there are no inflammatory changes within the right lower quadrant. BLADDER: Unremarkable. No mass. REPRODUCTIVE: Unremarkable as visualized. CHEST, ABDOMEN and PELVIS: INTRAPERITONEAL SPACE: Mild perihepatic ascites. No free air. BONES/JOINTS: Bilateral total hip arthroplasties. Old healed right-sided rib fractures. SOFT TISSUES: Diffuse anasarca. VASCULATURE: Moderate atherosclerotic calcifications of the abdominal aorta. Diffuse mesenteric venous congestion. No aortic aneurysm. LYMPH NODES: Unremarkable. No enlarged lymph nodes. TUBES, LINES AND DEVICES: Left-sided central line tip terminates at the cavoatrial junction. Impression: 1. Large bilateral water attenuation pleural effusions with adjacent passive atelectasis. This is mildly increased compared to the prior examination from 09/26/2024. 2. Mild perihepatic ascites along with mesenteric venous congestion and anasarca. Findings are consistent with fluid overload/third spacing. 3. No intra-abdominal abscesses. 4. Mild sigmoid diverticulosis. Report Dictated on Electronically Signed By: Robson Andrade MD Electronically Signed Date/Time: 10/06/2024 9:03 AM EDT XR chest 1 view [[id number]] Collected: 10/05/242039 Order Status: Completed Updated: 10/05/242042 Narrative: [facility] : 1950 [id number] Exam Date/Time: 10/05/2024 20:36 Procedure: XR CHEST 1 VIEW Ordering Provider: ESTEVEZ JOHN Reason For Exam: cvc line confirmation EXAMINATION: XR chest AP. EXAM DATE & TIME: 10/05/2024 8:36 PM EDT INDICATION: cvc line confirmation ADDITIONAL INFORMATION: 74-year-old female presents for follow-up after central venous catheter insertion COMPARISON: Chest x-rays dated 10/05/2024 and 09/28/2024 TECHNIQUE: Frontal view of the chest was obtained. FINDINGS: Lines/support devices: Cardiac leads project over the chest, somewhat limiting evaluation. Interval placement of a left internal jugular approach central venous catheter with its distal tip projecting over the cavoatrial junction. Cardiomediastinal silhouette: Within normal limits. Lungs/pleura: Moderate layering pleural effusions are seen bilaterally. No evidence of pneumothorax. Osseous structures: No acute osseous abnormality is demonstrated. Other findings: None. Impression: 1. Moderate bilateral layering pleural effusions. 2. Interval placement of left internal jugular approach central venous catheter with its distal tip projecting over the cavoatrial junction. Report Dictated on Electronically Signed By: Clarke Glynn MD Electronically Signed Date/Time: 10/05/2024 8:41 PM EDT XR chest 1 view [[id number]] Collected: 10/05/24 144 Order Status: Completed Updated: 10/05/24 1451 Narrative: [facility] Name[facility] 1950 [id number] Exam Date/Time: 10/05/2024 14:30 Procedure: XR CHEST 1 VIEW Ordering Provider: CARABALLO GEORGE Reason For Exam: SOB CHEST CLINICAL INDICATION: Dyspnea TECHNIQUE: AP portable chest COMPARISON: 09/28/2024 Impression: FINDINGS AND IMPRESSION: SUPPORT DEVICES: EKG leads OSSEOUS STRUCTURES: Unremarkable. HEART AND MEDIASTINUM: The cardiomediastinal silhouette appears unchanged from the prior exam. LUNGS AND PLEURA: Pulmonary venous congestion with interstitial edema and multifocal airspace opacities are present in both lungs. There are new moderate to large right and moderate left pleural effusions. Report Dictated on Electronically Signed By: London Hollis MD Electronically Signed Date/Time: 10/05/2024 2:50 PM EDT Antimicrobials, Start/End Dates: Cefepime 10/22- Vanco 10/22- Silvino 10/23- Impression: Severe sepsis. Improved. Infected left buttock pressure ulcer due to enterobacter cloacae complex. R/o infected left arm graft site. Encephalopathy. Leukocytosis. ESRD, on HD. Recent h/o Enterobacter cloacae/ Kleb pneumo/ Kleb oxytoca/ VR-Enterococcus casseliflavus BSI. Recent h/o C diff colitis. Plan: Pt clinically improved, was admitted sick due to severe sepsis due to infected left buttock pressure ulcer due to enterobacter cloacae complex, and r/o infected left arm graft site. She remained confused, tachycardic but encephalopathy improved. Blood cxs -neg so far. Await left arm graft site final cx results. Continue present antimicrobials. Moderate level complexity medical decision making. ID Will follow. Dr. More covers 10/26. Please call with any further question. Total time of 35 minutes on this day of encounter spent on, but not limited to review of tests, medical records , complex history , review of external medical records, paper and electronic, counseling and education (patient, family member, caregiver), ordering medications, tests, and procedures, communication with other health care professions, independent interpretation of tests, care coordination, arrangement of outpatient antimicrobial therapy, post-hospitalization therapy and follow-up, and counseling for risks, benefits, and consideration of use of antimicrobials. Images from the original note were not included. PHYSICAL THERAPY [facility] Treatment Note Name/MRN: Apoorva Gonzalez ([id number]) Date of : 1950 Age: 74 y.o. Room/Bed: 222-/222- A Visit #: 1 out of 5 visits Discharge Recommendation: [facility] Facility Equipment Needed: No Prior Level of Function Prior Level of ADL Function: Required Assist Prior Level of Mobility: Required Assist; Device: assist for stand-step Prior Level of Transfers: Required Assist Assessment Pt continues to make good overall progress towards established therapy goals this date. Remains limited by AMS/ sepsis. Pt completed bed mobility at Max A. STS transfers and Gait training were not safe to complete at this time. Vitals noted before session: 158/88, EOB 161/121, supine 170/94. Nursing was notified. Pt will continue to benefit from skilled therapy services during acute medical stay to improve upon presenting deficits prior to discharge SNF. Subjective Per RN pt was good to be seen for therapy. Pt was still verbally limited due to her AMS. Pain: Mclain-Guerra Pain Ratin = Hurts even more Pain Location: BLE Medical Precautions: No active isolations Proper PPE donned/doffed in accordance with facility standards. Fall Risk: Landers Fall Risk Score: 50 (High Risk) Precautions/Restrictions: Fall Precautions Overall Cognitive Status: Exceptions - Following commands: follows one step commands with increased time and follows one step commands with repetition - Safety judgement: decreased awareness of need for assistance and decreased awareness of need for safety - Insights: decreased awareness of deficits - Initiation: requires cues for all Overall Orientation Status: Oriented to Time and Oriented to Person Family/Caregiver Present: none Objective Bed Mobility Supine to sit: Max Assist Sit to supine: Max Assist Pt required MAX assist for all bed activities. Pt required assist with trunk as well as LE. Pt was able to sit on the EOB for about 2 minutes requiring CGA. Pt was not able to complete a STS transfer at this time due to BP vitals which were stated above as well as AMS. While in bed pt was able to complete a few ankle pumps in order to help increase circulation as well as increase strength. Constant cueing and increased time was needed through session. Plan Continue acute PT per plan of care. Safety/Education Safety Safety Devices in place: All fall risk precautions in place, call light within reach, left in bed, bed alarm in place, patient at risk for falls, and nurse notified Restraints: No Education Education Given To: patient Education Provided: PT Role, PT Goals, Home Exercise Program, Fall Prevention Education, Discharge Recommendations, and Benefits of Increasing Activity Education Method: Verbal Barriers to Learning: Cognition Education Outcome: Continued Education Needed Outcome Measures AM-PAC AM-PAC Inpatient Mobility Raw Score (No Stairs) : 7 JH-HLM JH-HLM Score: Sat at edge of bed Goals Patient Stated Goal: Pt not able to verbally set goal at this time Encounter Problems Encounter Problems (Active) Balance Patient will maintain dynamic sitting balance for 8 minutes with min assist in order to demonstrate improved postural control and prepare for out of bed mobility. (Progressing) Start: 10/24/24 Expected End: 10/31/24 Exercise Patient will complete lower extremity exercises for 1-2 sets / 5-10 reps in order to improve strength and activity tolerance for mobility. (Progressing) Start: 10/24/24 Expected End: 10/31/24 Mobility Patient will ambulate 5 feet with mod assist and least restrictive device in order to improve safety and independence with mobility. (Not Addressed) Start: 10/24/24 Expected End: 10/31/24 Transfers Patient will perform bed mobility with min assist in order to improve independence and prepare for out of bed mobility. (Progressing) Start: 10/24/24 Expected End: 10/31/24 Patient will complete sit to stand transfer with max assist to LRAD in order to improve safety and prepare for out of bed mobility. (Not Addressed) Start: 10/24/24 Expected End: 10/31/24 Therapy Time Individual Co-treatment Time In 1007 Time Out 1020 Minutes 13 Ramonita Vincent PT Hospitalist Progress Note 10/25/2024 Subjective: Admit Date: 10/22/2024 PCP: Roxie Spain Room#: 222-02/222-02 A BRIEF HOSPITAL COURSE: Patient is a 74 year old female that was sent in from her SNF 10/22 for AMS. She was found to be septic with HAGMA and went to the ICU. She was transferred to medical service 10/24. She is ESRD on HD and being followed by nephrology. ID following for infected sacral wound and sepsis. Interval History: No overnight issues. She is seen in her room, sacral wound noted. She states she is not doing good but she cannot name any specific complaints. Discussed wit her nurse and she is without any concerns. Case and plan discussed with patient and bedside nurse. All questions answered. Adult diet Dysphagia - Soft and Bite Sized 24HR INTAKE/OUTPUT: No intake or output data in the 24 hours ending 10/25/24 1440 Past Medical History: Medical History[1] LABS: CBC: Recent Labs 10/23/24 0052 10/24/24 0649 10/24/24 1217 10/25/24 0349 WBC 35.0* 31.2* -- 29.9* RBC 2.35* 1.95* -- 2.39* HGB 6.9* 5.8* 7.5* 6.8* HCT 21.6* 17.9* 23.3* 22.1* MCV 91.9 91.8 -- 92.5 RDW 15.5* 15.8* -- 16.1* PLT 355 316 -- 317 BMP: Recent Labs 10/23/24 0052 10/24/24 0649 10/25/24 0349 NA 134* 138 143 K 3.5 3.5 3.5 CL 95* 101 103 CO2 27 22* 23 BUN 31* 40* 15 CREATININE 5.78* 7.06* 3.49* GLUCOSE 72* 62* 69* CALCIUM 7.9* 7.6* 8.2* ANIONGAP 12 15* 17* LIVER PROFILE: Recent Labs 10/23/24 0052 10/24/24 0649 AST 34* 28 ALT <6 <6 BILITOT 0.7 0.5 ALKPHOS 162* 150 PROT 6.0* 5.6* PT/INR: No results for input(s): PROTIME, INR in the last 72 hours. CARDIAC ENZYMES: No results for input(s): TROPONINI in the last 72 hours. Procalcitonin: No results found for: PROCAL COVID-19 PCR: No results for input(s): COVID19 in the last 72 hours. Objective: Vitals: BP (!) 170/98 Pulse 104 Temp 37.1 C (98.8 F) (Oral) Resp 16 Ht 5' 4 (1.626 m) Wt 113 lb 1.5 oz (51.3 kg) SpO2 95% BMI 19.41 kg/m Pulse Ox: SpO2 Av.7 % Min: 95 % Max: 99 % Supplemental O2: Physical Exam Constitutional: Appearance: She is ill-appearing. HENT: Head: Normocephalic and atraumatic. Nose: Nose normal. Mouth/Throat: Mouth: Mucous membranes are moist. Eyes: Conjunctiva/sclera: Conjunctivae normal. Pupils: Pupils are equal, round, and reactive to light. Cardiovascular: Rate and Rhythm: Normal rate and regular rhythm. Heart sounds: Murmur heard. Pulmonary: Effort: Pulmonary effort is normal. Comments: Diminished , on room air Abdominal: General: Bowel sounds are normal. Palpations: Abdomen is soft. Musculoskeletal: General: Normal range of motion. Cervical back: Normal range of motion. Right lower leg: Edema present. Left lower leg: Edema present. Skin: General: Skin is warm and dry. Findings: Lesion present. Neurological: General: No focal deficit present. Mental Status: She is alert. Motor: Weakness present. Psychiatric: Mood and Affect: Mood normal. Behavior: Behavior normal. Thought Content: Thought content normal. Medications: Scheduled PRN Scheduled Meds[2] PRN Meds[3] Continuous Continuous Meds[4] Assessment Data: (CAT1) Reviewed 3 or more notes from different specialty or health system (each=1). (CAT1) Reviewed 3 or more labs/studies ordered by another provider not previously counted (each=1, panels count as 1). (CAT1) Ordered 2 new labs and/or studies (each=1, panels count as 1). (LOW: 2x CAT1 or independent historian MOD: 3x CAT1 or 1x CAT3 EXTENSIVE: 3x CAT1 and 1x CAT3) Acute, acute on chronic, unstable/uncontrolled chronic problems/diagnoses: Severe sepsis- improving , likely 2/2 infected sacral wound with enterobacter cloacae complex, ID following , on IVPB meropenem and vancomycin HAGMA - improved Encephalopathy - likely 2/2 sepsis , improved Wounds - stage 3 sacral wound Acute/chronic anemia - normocytic , continue to monitor hemoglobin , she is at 6.8 today , type and screen pending , transfused 1 unit 10/24, will need another unit 10/26 with dialysis Severe malnutrition - dietary following Dysphagia - seen by [facility] and now on bite sized soft diet with thin liquids, needs help with meals ESRD on HD- access with brown drainage around site, no erythema or edema noted , nephrology following and dialysis tomorrow Stable chronic problems affecting care, new non-acute diagnoses: HTN HPL Debility- WC for ambulation Recent Cdiff infection afib Plan As a result of the above findings & factors, the following mgmt was pursued: - patient transferred to medical service but remains roomed in ICU, she is improved and answers questions appropriately , Id following and managing antibiotics , blood cultures negative x 48 hours - am labs, replace lytes prn - PT/OT/CM/SW - delirium precautions: increase activity and limit nighttime disturbances - DVT prophylaxis: SCDs and encourage ambulation Complexity: Chronic illness with mild to moderate exacerbation, progression, or side effect of tx (MOD). Acute illness with systemic symptoms (MOD). Risk: Prescription drug/IVF/colloid was initiated, discontinued, adjusted; or reviewed with decision to maintain current orders (MOD). Low risk diagnostic testing or treatment (LOW). Advance Directive: Full Code Anticipated Discharge - Date - TBD - Location - Skilled Facility - Pending the following - clinical improvement Total time spent (which include face to face and non face to face encounters) : minutes Toxic drug monitoring/narrow therapeutic index drug monitoring : # Drug name : # Route administered : # Method of monitoring : Extended Emergency Contact Information Primary Emergency Contact: Deshawn Crystal Mobile Relation: Brother Technical Coordinator needed? No Secondary Emergency Contact: Edward Ruggiero Mobile Relation: Significant Other Preferred language: Cambodian Technical Coordinator needed? No PARK Kelly CNP Division of Hospitalist Medicine [facility] [1] Past Medical History: Diagnosis Date Chronic kidney disease (CKD) Hemodialysis patient (CMS/HCC) (HCC) Wednesday, , Wednesday History of blood transfusion 02/27/2022 Hypertension Seizure ([facility]) Developed seizure-like activity on 02/24 during hospital admission [2] chlorhexidine, , Topical, Daily collagenase, , Topical, Daily heparin, 5,000 Units, SubCUTAneous, 2 times per day levETIRAcetam, 500 mg, IntraVENous, Daily meropenem, 1,000 mg, IntraVENous, q12h mupirocin, , Nasal, BID [Held by provider] sevelamer carbonate, 800 mg, Oral, TID WC sodium chloride 0.9%, 5-40 mL, IntraVENous, 2 times per day sodium chloride 0.9%, 5-40 mL, IntraCATHeter, q8h vancomycin (Vancocin) intermittent dosing (placeholder), , Other, RX Placeholder [3] PRN medications: acetaminophen OR acetaminophen, acetaminophen, collagenase, dextrose, dextrose, glucagon (rDNA), glucose, heparin, heparin, heparin, heparin, labetalol, ondansetron ODT OR ondansetron, polyethylene glycol (PEG) 3350, sodium chloride, sodium chloride, sodium chloride 0.9%, sodium chloride 0.9% [4] Images from the original note were not included. [facility] Wound Care Progress Note Apoorva Gonzalez AGE: 74 y.o. GENDER: female : 1950 Subjective: HISTORY of PRESENT ILLNESS HPI Apoorva Gonzalez is a 74 y.o. female who presents for a wound care follow up. HPI: Apoorva is a 74 y.o. female who presented to the emergency department on 10/22/24 with chief complaint of AMS. Pt is resident of [place] at [facility]. Report one day of increasing weakness and AMS. She receives dialysis 5x/week Wed-Wednesday. No missed sessions. Temp 101.3F at [facility]. Hospitalized from 08/14 - 08/24 at [facility] for cardiac arrest and sepsis and again from 08/26 to 09/06 at for sepsis believed to be due to an infected right thigh wound and hematoma. Hospitalized again at [facility] from 09/13 - 10/12 due to covid-19 sepsis and electrolyte derangements. Wound Care consulted for pressure Injury coccyx and buttock Patient resting in ICU bed at time of visit. Dressing to sacrum changed per this provider today with no complications. Patient incontinent of loose stool and assisted patient with incontinence care and changed bed pads. PAST MEDICAL HISTORY Medical History[1] PAST SURGICAL HISTORY Surgical History[2] FAMILY HISTORY Family History[3] SOCIAL HISTORY Social History[4] ALLERGIES Allergies[5] MEDICATIONS Medications Ordered Prior to Encounter[6] REVIEW OF SYSTEMS Pertinent items are noted in HPI. Objective: BP 156/88 (BP Location: Right arm, Patient Position: Lying) Pulse 103 Temp 37.1 C (98.8 F) (Oral) Resp 16 Ht 5' 4 (1.626 m) Wt 113 lb 1.5 oz (51.3 kg) SpO2 95% BMI 19.41 kg/m PHYSICAL EXAM General appearance: in no apparent distress, well developed and well nourished, in no respiratory distress and acyanotic, alert, cooperative, and moderately ill Skin: warm and dry Pulmonary: Normal effort, no respiratory distress, no cyanosis Sacrum extending to left buttock: [id number] cm. Wound bed with a mix of small pink tissue and large adherent yellow slough present. Aminah wound intact with no erythema and fragile. Stable 10/23/24 LABS CBC: Lab Results Component Value Date WBC 29.9 (H) 10/25/2024 HGB 6.8 (LL) 10/25/2024 HCT 22.1 (L) 10/25/2024 MCV 92.5 10/25/2024 PLT 317 10/25/2024 BMP: Lab Results Component Value Date NA 143 10/25/2024 K 3.5 10/25/2024 CL 103 10/25/2024 CO2 23 10/25/2024 PHOS 2.4 10/25/2024 BUN 15 10/25/2024 CREATININE 3.49 (H) 10/25/2024 PT/INR: No results found for: PROTIME, INR Prealbumin: No results found for: PREALBUMIN Albumin:No components found for: LABALBU Sed Rate:No results found for: SEDRATE Micro: No components found for: BC Assessment/Plan: Nursing staff to perform dressing change: Sacrum extending to left buttock: Pressure Injury Unstageable (POA) -cleanse with NS, apply santyl followed by xeroform, cover with dry clean dressing daily and PRN. -ICU bed -waffle chair cushion -Q2hr/PRN turns -glide sheets for T&R -continence checks Q1-2 Hrs/PRN Nutritional support Wound Care to follow Recommend to follow up at [facility] Outpatient wound care center after hospital discharge. Any questions or concerns please secure chat [facility] wound/ostomy. Thank you for the consult! I personally obtained the saavedra and critical portions of the history and physical exam. I reviewed the labs, imaging studies, and electronic medical record. I reviewed the chart documentation and discussed the patient with treatment team members. I have edited the note to reflect my clinical findings and my assessment and plan. Please note, the time of this note does not reflect the time I saw this patient today, but the time of this documentaton. Portions of this note including HPI, ROS, impression/plan, and examination may have been copied forward from admission to today as to provide important historical information essential in contributing to medical decision making. Documentation has been reviewed and edited as necessary to support clinical decision making for today's visit and to reflect my own independent evaluation of this patient. Decision making for today's visit and to reflect my own independent evaluation of this patient. [1] Past Medical History: Diagnosis Date Chronic kidney disease (CKD) Hemodialysis patient (CMS/HCC) (HCC) Wednesday, , Wednesday History of blood transfusion 02/27/2022 Hypertension Seizure (HCC) Developed seizure-like activity on 02/24 during hospital admission [2] Past Surgical History: Procedure Laterality Date AV FISTULA PLACEMENT Left 08/07/2022 COLONOSCOPY N/A 01/25/2024 Performed by Chrissy Gilman MD at [facility] ENDOSCOPY IR CVC TUNNELED DIALYSIS CATHETER PLACEMENT 02/27/2022 IR CVC TUNNELED CATHETER PLACEMENT 02/27/2022 Candis Andrade MD [facility] SPECIAL PROCEDURES IR EMBOLIZATION 01/24/2024 IR EMBOLIZATION 01/24/2024 Jovan Glynn MD [facility] SPECIAL PROCEDURES [3] Family History Problem Relation Name Age of Onset Dementia Mother Stroke Father Prostate cancer Brother 69 Breast cancer Cousin 32 Stomach cancer Mother's Sister 70 [4] Social History Tobacco Use Smoking status: Never Smokeless tobacco: Never Vaping Use Vaping status: Never Used Substance Use Topics Alcohol use: Yes Alcohol/week: 2.0 standard drinks of alcohol Types: 2 Glasses of wine per week Comment: weekly Drug use: Never [5] No Known Allergies [6] No current facility-administered medications on file prior to encounter. Current Outpatient Medications on File Prior to Encounter Medication Sig Dispense Refill acetaminophen (Tylenol) 325 MG tablet Take 650 mg by mouth every 6 hours as needed. atorvastatin (Lipitor) 40 MG tablet Take 1 tablet (40 mg) by mouth Nightly. 30 tablet 11 B complex-vitamin C-folic acid (Nephro-Coleen) 0.8 MG tablet Take 0.8 mg by mouth daily. cholecalciferol (Vitamin D-3) 125 MCG (5000 UT) capsule Take 5,000 Units by mouth daily. cyclobenzaprine (Flexeril) 5 MG tablet Take 1 tablet (5 mg) by mouth 3 times daily as needed for muscle spasms for up to 10 days. levETIRAcetam (Keppra) 500 MG tablet Take 1 tablet (500 mg) by mouth daily. 30 tablet 1 meclizine (Antivert) 25 MG tablet Take 1 tablet (25 mg) by mouth 3 times daily as needed for dizziness for up to 10 doses. 10 tablet 0 sevelamer (Renagel) 800 MG tablet Take 800 mg by mouth 3 times daily (with meals). Swallow tablet whole; do not crush, break, or chew. Thiamine HCl (vitamin B-1) 250 MG tablet Take 250 mg by mouth daily. calcium acetate (Phoslo) 667 MG tablet Take 1 tablet by mouth in the morning and 1 tablet at noon and 1 tablet in the evening. Take with meals. [] cefdinir (Omnicef) 300 MG capsule Take 1 capsule (300 mg) by mouth daily for 8 days. 8 capsule 0 [] linezolid (Zyvox) 600 MG tablet Take 1 tablet (600 mg) by mouth every 12 hours for 15 doses. 15 tablet 0 magnesium hydroxide (Milk of Magnesia) 2400 MG/10ML suspension suspension Take 30 mL by mouth Daily as needed for constipation. Cosigned by Evan Culp DO at 10/30/2024 5:10 PM EDT Images from the original note were not included. Speech-Language Pathology SPEECH LANGUAGE PATHOLOGY [facility] Dysphagia Treatment Note Patient Name: Apoorva Gonzalez Evaluation Date: 10/25/2024 Date of : 1950 Admission Date: 10/22/2024 12:48 PM Age: 74 y.o. Room/Bed: 222/ A Subjective Patient alert and oriented to self only. Seen upright in bed, after repositioning. Answers some basic questions with clear vocal quality. Follows some basic commands. No visitors at bedside. Spoke with CYNTHIA Angel who cleared pt for treatment. Current Diet: Dietary Orders (From admission, onward) Start Ordered 10/22/241851 NPO diet with enteral medications Diet effective now Comments: Please do not give oral medications if she is not awake enough to take them Question: Medications? Answer: with enteral medications 10/22/24 1851 Oxygen: Oxygen Therapy: None (Room air) I have been eating good Pain: Pt denies any current pain. PPE Worn: gloves Objective & Assessment Dysphagia Treatment # of Activities: 1 Dysphagia Activity 1: re-assess swallowing function Ptt is more alert. Needed encouragement to accept food bolus, sips. Some hesitation to accept bites. Would not initiate self feeding. Functional labial striping from the spoon, lip rounding around the cup and eventually taking single and serial drinks from the straw. Swallowing with liquids was overtly prompt, slight delay for bites of applesauce with occasional second swallow. Mastication of dipti cracker pieces softened and via single bites was functional. Mild coating across surface of the tongue that clears well with liquid chaser. Limited acceptance of po. Needed encouragement and coaxing to accept additional bites/drinks until complete refusal. Plan & Recommendations Plan: Advance to soft and bite sized diet with thin liquids. Assist with feeding and ensure oral clearing with alternating drinks. Recommend Soft and bite-sized solids and Thin liquids and meds whole in puree and the following precautions: - Upright positioning for all PO intake - 1:1 Assistance - PO only when fully alert - Alternate solid and liquids D/C Recommendations: to be determined Education Education Given: swallowing strategies, diet recommendations Given To: patient and RN Response: verbalizes understanding Goals Patient Stated Goal: none stated. Encounter Problems Encounter Problems (Active) Swallowing Patient will tolerate the least restrictive diet consistency to allow for safe consumption of daily meals (Progressing) Start: 10/24/24 Expected End: 11/07/24 Patient will demonstrate safe swallowing Intervention/techniques (Initiated) Start: 10/24/24 Expected End: 11/07/24 Patient will use appropriate strategies for increased oralpharyngeal swallow function (Initiated) Start: 10/24/24 Expected End: 11/07/24 Therapy Time [facility] Individual Minutes Time In: 835 Time Out: 850 Minutes: 15 NIRU Quiroz Images from the original note were not included. Pharmacy Managed Vancomycin Dosing Service Progress Note Consult Date: 10/24/24 Patient Name: Apoorva Gonzalez Allergies: Patient has no known allergies. Age: 74 y.o. Sex: female Ht: Height: 162.6 cm (5' 4) TBW: Weight: 48.3 kg (106 lb 7.7 oz) BMI: Body mass index is 18.28 kg/m . Lab Results Component Value Date CREATININE 7.06 (H) 10/24/2024 CREATININE 5.78 (H) 10/23/2024 BUN 40 (H) 10/24/2024 BUN 31 (H) 10/23/2024 WBC 31.2 (HH) 10/24/2024 WBC 35.0 (HH) 10/23/2024 Renal: [x]HD []CRRT []PD [] CrCl ml/min (if ROLANDO, no GARMENT ALTERATION EXAMINER) Infectious Diagnosis: sepsis (target level = mg/L) Antimicrobials: Patient recently received an antibiotic (last 12 hours) Date/Time Action Medication Dose Rate 10/24/242116 Given mupirocin (Bactroban) 2 % ointment 10/24/242110 New Bag meropenem (Merrem) 1,000 mg in sodium chloride 0.9 % 100 mL IVPB 1,000 mg 33.3 mL/hr Assessment/Plan: Intermittent vancomycin dosing (Pulse Dosing). Lab Results Component Value Date VANCORANDOM 19.7 10/24/2024 Give Vancomycin 500 mg once based on patient age, weight, renal status and infectious diagnosis (10 mg/kg). Will adjust dose/frequency if needed according to level. Follow renal status closely. Orders placed. Thank you for this consult. Please page/call with questions. Date: 10/24/24 Time: 11:21 PM Joann Floyd PharmD (available on [employer]) [facility] PROGRESS NOTE Subjective Interval History: Apoorva Gonzalez is being followed for ESRD. She has been dialyzed today, tolerated well Medications Current Medications[1] Objective Physical Exam Somnolent, moaning Hot to touch Shivering Chest is CTA anteriorly tachycardic No edema Vital signs in last 24 hours: Temp: [36.7 C (98.1 F)-37.5 C (99.5 F)] 36.7 C (98.1 F) Heart Rate: [102-123] 113 Resp: [13-35] 16 BP: (127-176)/(65-100) 167/82 Intake/Output this shift: I/O this shift: In: 609.7 [I.V.:300; Blood:309.7] Out: - Intake/Output last 3 shifts: No intake/output data recorded. Labs: Results from last 7 days Lab Units 10/24/24 1217 10/24/24 0649 WBC AUTO 10*3/uL -- 31.2* RBC AUTO 10*6/uL -- 1.95* HEMOGLOBIN g/dL 7.5* 5.8* HEMATOCRIT % 23.3* 17.9* Results from last 7 days Lab Units 10/24/24 0649 SODIUM mmol/L 138 POTASSIUM mmol/L 3.5 CHLORIDE mmol/L 101 CO2 mmol/L 22* BUN mg/dL 40* CREATININE mg/dL 7.06* CALCIUM mg/dL 7.6* PHOSPHORUS mg/dL 4.6 MAGNESIUM mg/dL 1.9 BILIRUBIN TOTAL mg/dL 0.5 ALT U/L <6 AST U/L 28 Results from last 7 days Lab Units 10/22/24 1451 COLOR U Light Richardson* CLARITY U Clear PH U pH 8.5* PROTEIN U MG/DL mg/dL 300* BLOOD U mg/dL Negative NITRITE U Negative WBC UR HPF /HPF 3-5 BACTERIA UR HPF /HPF Few* Assessment/Plan Principal Problem: Sepsis, due to unspecified organism, unspecified whether acute organ dysfunction present (HCC) ESRD Stable on dialysis Euvolemia Access TDC Normokalemia Plan Next HD Radha Meza MD 10/24/2024 5:26 PM [1] Current Facility-Administered Medications: acetaminophen (Tylenol) tablet 650 mg, 650 mg, Oral, q6h PRN OR acetaminophen (Tylenol) suppository 650 mg, 650 mg, Rectal, q6h PRN, Kaylin Thomas DO, 650 mg at 10/23/24 1515 acetaminophen (Tylenol) tablet 650 mg, 650 mg, Oral, q6h PRN, Kaylin Thomas DO chlorhexidine (Hibiclens) 4 % solution, , Topical, Daily, Kaylin Thomas DO, Given at 10/24/24 1506 collagenase 250 UNIT/GM ointment, , Topical, PRN, Kaylin Thomas DO collagenase 250 UNIT/GM ointment, , Topical, Daily, Kaylin Thomas DO, Given at 10/24/24 0819 dextrose 5 % infusion, 100 mL/hr, IntraVENous, PRN, Kaylin Thomas DO dextrose 50 % solution 12.5 g, 12.5 g, IntraVENous, PRN, Kaylin Thomas DO, 12.5 g at 10/24/24 0654 glucagon (human recombinant) injection 1 mg, 1 mg, IntraMUSCular, PRN, Kaylin Thomas DO glucose oral gel 15 g, 15 g, Oral, PRN, Kaylin Thomas DO heparin injection 1,200-2,000 Units, 1,200-2,000 Units, IntraCATHeter, PRN, Kaylin Thomas DO heparin injection 1,200-2,000 Units, 1,200-2,000 Units, IntraCATHeter, PRN, Kaylin Thomas DO heparin injection 1,200-2,000 Units, 1,200-2,000 Units, IntraCATHeter, PRN, Kaylin Thomas DO, 2,000 Units at 10/24/24 1240 heparin injection 1,200-2,000 Units, 1,200-2,000 Units, IntraCATHeter, PRN, Kaylin Thomas DO, 2,100 Units at 10/24/24 1240 heparin injection 5,000 Units, 5,000 Units, SubCUTAneous, 2 times per day, Kaylin Thomas DO, 5,000 Units at 10/24/24 0819 labetalol (Normodyne,Trandate) injection 10 mg, 10 mg, IntraVENous, q4h PRN, Kaylin Thomas DO levETIRAcetam in sodium chloride (Keppra) IVPB 500 mg, 500 mg, IntraVENous, Daily, Kaylin Thomas DO, Stopped at 10/24/24 0900 meropenem (Merrem) 1,000 mg in sodium chloride 0.9 % 100 mL IVPB, 1,000 mg, IntraVENous, q12h, Kaylin Thomas DO, Stopped at 10/24/24 1400 mupirocin (Bactroban) 2 % ointment, , Nasal, BID, Kaylin Thomas DO, Given at 10/24/24 0818 ondansetron ODT (Zofran-ODT) disintegrating tablet 4 mg, 4 mg, Oral, q8h PRN OR ondansetron (Zofran) injection 4 mg, 4 mg, IntraVENous, q6h PRN, Kaylin Thomas DO polyethylene glycol (PEG) 3350 (Miralax) packet 17 g, 17 g, Oral, Daily PRN, Kaylin Thomas DO [Held by provider] sevelamer carbonate (Renvela) tablet 800 mg, 800 mg, Oral, TID WC, Kaylin Thomas DO sodium chloride 0.9 % infusion, 5-250 mL/hr, IntraVENous, PRN, Kaylin Thomas, sodium chloride 0.9 % infusion, 250 mL/hr, IntraVENous, PRN, Kaylin Thomas, sodium chloride 0.9% (NS) flush 5-40 mL, 5-40 mL, IntraVENous, 2 times per day, Kaylin Thomas DO, 10 mL at 10/24/24 0818 sodium chloride 0.9% (NS) flush 5-40 mL, 5-40 mL, IntraVENous, PRN, Kaylin Thomas DO sodium chloride 0.9% (NS) flush 5-40 mL, 5-40 mL, IntraCATHeter, q8h, Kaylin Thomas DO, 20 mL at 10/24/24 0656 sodium chloride 0.9% (NS) flush 5-40 mL, 5-40 mL, IntraVENous, PRN, Kaylin Thomas DO vancomycin (Vancocin) intermittent dosing (placeholder), , Other, RX Placeholder, Kaylin Thomas DO Images from the original note were not included. [facility] - Infectious Diseases Attending Progress Note Subjective: Follow up for severe sepsis, encephalopathy, Infected left buttock pressure ulcer due to enterobacter cloacae complex, r/o infected left arm graft site. She was seen, found her laying on bed, sleeping, confused, making incomprehensible sounds when asked questions, fever and tachypnea decreased but remained tachycardic, she appeared lethargic and ill. She was admitted on 10/22/24 from [facility] due to fever of 101.3 F increased weakness, and altered mental status; on presentation, she was diaphoretic, had stage III pressure ulcer on left buttock, tachycardic P 120, tachypneic R 22; labs showed leukocytosis 20.2k, CXR showed bibasilar infiltrates and effusions; pip/tazo and vancomycin were given initially. She has had multiple recent hospital admissions; hospitalized from 08/14 - 08/24 at [facility] for cardiac arrest and sepsis and again from 08/26 to 09/06 at for sepsis believed to be due to an infected right thigh wound and hematoma; again at [facility] from 09/13 - 10/12/24 due to covid-19, electrolyte derangements, Enterobacter cloacae, Klebsiella pneumonia, Klebsiella oxytocin and VR Enterococcus which were treated for complete course, also, had C. difficile colitis which was treated, had tunneled HD catheter placed on discharge on 10/12. She has h/o ESRD on HD, seizure disorder and alcohol use. She was examined; notes, labs, imaging were reviewed; treatment plan was discussed, clinical informations were documented in electronic record. Objective: Vitals: Patient Vitals for the past 24 hrs: BP Temp Temp src Pulse Resp SpO2 10/24/24 1247 (!) 167/82 36.7 C (98.1 F) -- 113 16 99 % 10/24/24 1237 (!) 170/94 -- -- 114 19 -- 10/24/24 1230 (!) 171/100 -- -- 113 23 -- 10/24/24 1215 (!) 175/93 -- -- 111 18 -- 10/24/24 1200 (!) 174/88 -- -- 110 16 -- 10/24/24 1145 (!) 173/87 -- -- 110 18 -- 10/24/24 1130 (!) 175/86 -- -- 108 22 -- 10/24/24 1115 (!) 161/84 -- -- 106 22 -- 10/24/24 1100 (!) 171/83 36.8 C (98.2 F) -- 108 18 100 % 10/24/24 1045 (!) 176/92 -- -- 106 22 -- 10/24/24 1030 (!) 171/100 -- -- 106 17 -- 10/24/24 1015 (!) 165/87 -- -- 102 17 -- 10/24/24 1000 149/80 -- -- 108 17 -- 10/24/24 0945 140/83 -- -- 108 22 -- 10/24/24 0937 143/80 37.1 C (98.7 F) -- 107 23 100 % 10/24/24 0932 150/76 -- -- 110 20 100 % 10/24/24 0919 147/74 37.3 C (99.2 F) -- 112 20 100 % 10/24/24 0802 128/74 -- -- 110 15 98 % 10/24/24 0702 148/65 -- -- 109 (!) 26 97 % 10/24/24 0602 152/83 -- -- 114 17 97 % 10/24/24 0502 150/73 -- -- 115 18 96 % 10/24/24 0402 (!) 165/75 -- -- 113 (!) 26 -- 10/24/24 0345 -- -- -- -- -- 99 % 10/24/24 0302 139/77 37.1 C (98.8 F) Axillary 110 (!) 27 97 % 10/24/24 0202 (!) 166/78 -- -- 114 19 -- 10/24/24 0102 150/69 -- -- 108 24 -- 10/24/24 0003 147/70 -- -- 109 17 98 % 10/23/24 2302 138/69 36.9 C (98.4 F) Axillary 107 18 98 % 10/23/242221 -- -- -- 110 (!) 26 97 % 10/23/242220 -- -- -- 110 (!) 27 97 % 10/23/242219 -- -- -- 109 (!) 27 98 % 10/23/242218 -- -- -- 111 15 98 % 10/23/242217 -- -- -- 113 19 98 % 10/23/242216 -- -- -- 111 17 98 % 10/23/242215 -- -- -- 113 20 96 % 10/23/242214 -- -- -- 110 18 99 % 10/23/242213 -- -- -- 113 16 100 % 10/23/242212 -- -- -- 113 14 97 % 10/23/242211 -- -- -- 113 18 100 % 10/23/242210 -- -- -- 110 (!) 26 98 % 10/23/242209 -- -- -- 111 13 99 % 10/23/242208 -- -- -- 112 14 100 % 10/23/242207 -- -- -- 111 25 99 % 10/23/242206 -- -- -- 111 22 96 % 10/23/242205 -- -- -- 111 19 98 % 10/23/242204 -- -- -- 110 19 99 % 10/23/242203 -- -- -- 111 18 98 % 10/23/242202 -- -- -- 111 23 97 % 10/23/242201 136/72 -- -- 112 21 98 % 10/23/242200 -- -- -- 112 21 98 % 10/23/242199 -- -- -- 112 13 99 % 10/23/242158 -- 37.5 C (99.5 F) Oral 111 14 100 % 10/23/242157 -- -- -- 112 16 99 % 10/23/242156 -- -- -- 112 13 99 % 10/23/242155 -- -- -- 114 (!) 29 98 % 10/23/242154 -- -- -- 113 (!) 32 97 % 10/23/242153 -- -- -- 114 (!) 29 97 % 10/23/242152 -- -- -- 115 (!) 28 98 % 10/23/242151 -- -- -- 113 (!) 26 97 % 10/23/242150 -- -- -- 113 24 97 % 10/23/242149 -- -- -- 113 (!) 26 96 % 10/23/242148 -- -- -- 113 (!) 27 98 % 10/23/242147 -- -- -- 112 (!) 27 98 % 10/23/242146 -- -- -- 112 (!) 27 97 % 10/23/242145 -- -- -- 111 (!) 26 97 % 10/23/242144 -- -- -- 112 (!) 26 99 % 10/23/242143 -- -- -- 110 (!) 26 99 % 10/23/242142 -- -- -- 110 25 98 % 10/23/242141 -- -- -- 111 (!) 26 98 % 10/23/242139 -- -- -- 110 (!) 29 98 % 10/23/242138 -- -- -- 114 25 98 % 10/23/242137 -- -- -- 112 25 98 % 10/23/242136 -- -- -- 110 22 99 % 10/23/242135 -- -- -- 113 (!) 27 96 % 10/23/242134 -- -- -- 114 25 96 % 10/23/242133 -- -- -- 112 (!) 32 98 % 10/23/242132 -- -- -- 113 (!) 30 98 % 10/23/242131 -- -- -- 112 (!) 26 97 % 10/23/242130 -- -- -- 112 (!) 26 98 % 10/23/242129 -- -- -- 112 (!) 29 98 % 10/23/242128 -- -- -- 113 (!) 27 98 % 10/23/242127 -- -- -- 112 (!) 26 98 % 10/23/242126 -- -- -- 112 (!) 27 98 % 10/23/242125 -- -- -- 111 (!) 27 99 % 10/23/242124 -- -- -- 112 (!) 29 98 % 10/23/242123 -- -- -- 111 (!) 27 98 % 10/23/242122 -- -- -- 111 25 98 % 10/23/242121 -- -- -- 110 (!) 26 98 % 10/23/242120 -- -- -- 110 (!) 30 98 % 10/23/242119 -- -- -- 109 (!) 28 97 % 10/23/242118 -- -- -- 110 19 98 % 10/23/242117 -- -- -- 111 22 98 % 10/23/242116 -- -- -- 112 22 98 % 10/23/242115 -- -- -- 113 20 99 % 10/23/242114 -- -- -- 114 18 100 % 10/23/242113 -- -- -- 112 15 100 % 10/23/242112 -- -- -- 111 25 98 % 10/23/242111 -- -- -- 111 22 96 % 10/23/242110 -- -- -- 110 (!) 29 97 % 10/23/242109 -- -- -- 112 23 98 % 10/23/242108 -- -- -- 111 16 99 % 10/23/242107 -- -- -- 111 (!) 26 98 % 10/23/242106 -- -- -- 112 20 97 % 10/23/242105 -- -- -- 111 22 97 % 10/23/242104 -- -- -- 111 (!) 29 97 % 10/23/242103 -- -- -- 111 (!) 28 97 % 10/23/242102 -- -- -- 112 23 97 % 10/23/242101 138/73 -- -- 111 22 97 % 10/23/242100 -- -- -- 112 21 97 % 10/23/242099 -- -- -- 111 18 97 % 10/23/242058 -- -- -- 111 20 98 % 10/23/242057 -- -- -- 113 19 100 % 10/23/242056 -- -- -- 110 (!) 26 98 % 10/23/242055 -- -- -- 111 (!) 27 98 % 10/23/242054 -- -- -- 111 23 97 % 10/23/242053 -- -- -- 110 (!) 26 97 % 10/23/242052 -- -- -- 112 (!) 28 96 % 10/23/242051 -- -- -- 112 (!) 27 97 % 10/23/242050 -- -- -- 111 (!) 28 95 % 10/23/242049 -- -- -- 110 25 98 % 10/23/242048 -- -- -- 111 17 96 % 10/23/242047 -- -- -- 111 19 98 % 10/23/242046 -- -- -- 112 15 98 % 10/23/242045 -- -- -- 114 20 99 % 10/23/242044 -- -- -- 113 23 97 % 10/23/242043 -- -- -- 110 (!) 26 98 % 10/23/242042 -- -- -- 110 19 98 % 10/23/242041 -- -- -- 110 (!) 30 98 % 10/23/242040 -- -- -- 110 (!) 35 98 % 10/23/242039 -- -- -- 110 24 97 % 10/23/242038 -- -- -- 111 15 99 % 10/23/242037 -- -- -- 112 (!) 26 96 % 10/23/242036 -- -- -- 111 (!) 30 97 % 10/23/242035 -- -- -- 111 (!) 26 97 % 10/23/242034 -- -- -- 113 (!) 27 97 % 10/23/242033 -- -- -- 113 20 97 % 10/23/242031 -- -- -- 115 21 98 % 10/23/242030 -- -- -- 115 (!) 27 98 % 10/23/242029 -- -- -- 115 21 98 % 10/23/242028 -- -- -- 113 18 98 % 10/23/242027 -- -- -- 116 20 97 % 10/23/242026 -- -- -- 114 23 97 % 10/23/242025 -- -- -- 113 19 98 % 10/23/242024 -- -- -- 115 18 100 % 10/23/242023 -- -- -- 114 24 97 % 10/23/242022 -- -- -- 112 24 98 % 10/23/242021 -- -- -- 114 21 98 % 10/23/242020 -- -- -- 112 18 98 % 10/23/242019 -- -- -- 113 22 98 % 10/23/242018 -- -- -- 113 16 99 % 10/23/242017 -- -- -- 115 16 98 % 10/23/242016 -- -- -- 111 21 97 % 10/23/242015 -- -- -- 112 18 100 % 10/23/242014 -- -- -- 112 23 99 % 10/23/242013 -- -- -- 111 20 100 % 10/23/242012 -- -- -- 112 19 97 % 10/23/242011 -- -- -- 112 17 98 % 10/23/242010 -- -- -- 112 18 99 % 10/23/242009 -- -- -- 112 (!) 27 97 % 10/23/242008 -- -- -- 112 20 98 % 10/23/242007 -- -- -- 112 (!) 29 98 % 10/23/242006 -- -- -- 112 (!) 33 97 % 10/23/242005 -- -- -- 113 22 97 % 10/23/242004 -- -- -- 113 (!) 26 96 % 10/23/242003 -- -- -- 112 (!) 26 97 % 10/23/242002 -- -- -- 111 (!) 31 97 % 10/23/242001 127/70 -- -- 113 25 99 % 10/23/242000 -- -- -- 113 23 98 % 10/23/241999 -- -- -- 113 15 98 % 10/23/241958 -- -- -- 111 19 98 % 10/23/241957 -- -- -- 113 (!) 35 98 % 10/23/241956 -- -- -- 112 (!) 28 96 % 10/23/241955 -- -- -- 114 24 97 % 10/23/241954 -- -- -- 112 21 98 % 10/23/241953 -- -- -- 111 (!) 30 97 % 10/23/241952 -- -- -- 115 21 97 % 10/23/241951 -- -- -- 115 20 99 % 10/23/241950 -- -- -- 114 23 97 % 10/23/241949 -- -- -- 115 (!) 28 98 % 10/23/241948 -- -- -- 116 (!) 27 97 % 10/23/241947 -- -- -- 117 15 99 % 10/23/241946 -- -- -- 115 (!) 27 94 % 10/23/241945 -- -- -- 114 17 99 % 10/23/241944 -- -- -- 115 20 99 % 10/23/241943 -- -- -- 115 (!) 34 98 % 10/23/241942 -- -- -- 118 16 96 % 10/23/241941 -- -- -- 117 (!) 30 97 % 10/23/241940 -- -- -- 117 (!) 31 97 % 10/23/241939 -- -- -- 117 (!) 34 98 % 10/23/241938 -- -- -- 116 (!) 27 99 % 10/23/241937 -- -- -- 118 (!) 28 96 % 10/23/241936 -- -- -- 118 (!) 26 96 % 10/23/241935 -- -- -- 117 25 96 % 10/23/241934 -- -- -- 117 (!) 26 96 % 10/23/241933 -- -- -- 117 (!) 26 96 % 10/23/241932 -- -- -- 117 (!) 27 96 % 10/23/241931 -- -- -- 116 (!) 29 96 % 10/23/241930 -- -- -- 116 (!) 30 96 % 10/23/241929 -- -- -- 116 (!) 28 96 % 10/23/241928 -- -- -- 115 (!) 28 96 % 10/23/241927 -- -- -- 115 (!) 32 96 % 10/23/241926 -- -- -- 115 (!) 29 96 % 10/23/241925 -- -- -- 115 (!) 29 96 % 10/23/241923 -- -- -- 114 (!) 26 96 % 10/23/241922 -- -- -- 115 (!) 28 96 % 10/23/241921 -- -- -- 114 (!) 31 96 % 10/23/241920 -- -- -- 114 14 98 % 10/23/241919 -- -- -- 115 24 96 % 10/23/241918 -- -- -- 117 (!) 28 96 % 10/23/241917 -- -- -- 117 (!) 26 96 % 10/23/241916 -- -- -- 117 (!) 29 97 % 10/23/241915 -- -- -- 117 (!) 27 96 % 10/23/241914 -- -- -- 117 (!) 26 97 % 10/23/241913 -- -- -- 116 (!) 27 98 % 10/23/241912 -- -- -- 117 (!) 29 97 % 10/23/241911 -- -- -- 117 (!) 28 98 % 10/23/241910 -- -- -- 115 (!) 28 97 % 10/23/241909 -- -- -- 117 24 98 % 10/23/241908 -- -- -- 115 23 94 % 10/23/241907 -- -- -- 119 (!) 28 94 % 10/23/241906 -- -- -- 117 (!) 26 98 % 10/23/241905 -- -- -- 115 23 95 % 10/23/241904 -- -- -- 117 25 96 % 10/23/241903 -- -- -- 116 25 97 % 07/21/25 1903 -- -- -- 116 (!) 26 94 % 10/23/24 1902 159/67 -- -- 116 (!) 26 95 % 10/23/24 1800 148/77 -- -- (!) 123 25 100 % 10/23/24 1700 (!) 178/89 -- -- 120 (!) 28 98 % Physical Exam Vitals and nursing note reviewed. Constitutional: General: She is in acute distress. Appearance: She is ill-appearing. Comments: Lethargic - only moantonette does not give verbal replies HENT: Mouth/Throat: Pharynx: Oropharynx is clear. Eyes: Conjunctiva/sclera: Conjunctivae normal. Cardiovascular: Rate and Rhythm: tachycardia present. Heart sounds: No murmur heard. Pulmonary: Effort: Pulmonary effort is normal. No respiratory distress. Breath sounds: No wheezing or rales. Comments: Tachypnea decreased Abdominal: General: Bowel sounds are normal. Tenderness: There is no abdominal tenderness. Comments: Left lower quadrant - mass under skin Musculoskeletal: General: Swelling, tenderness and signs of injury present. Left arm graft site discharge, r/o infection. Comments: Sacral wound Skin: General: Skin is warm. Capillary Refill: Capillary refill takes less than 2 seconds. Comments: Stage III pressure ulcer on Lt buttock. Draining clear fluid. No surrounding erythema or crepitus Neurological: General: No focal deficit present. Mental Status: She is alert. She is disoriented. Motor: Weakness present. Labs: Recent Labs 10/22/24 1411 10/23/24 0052 10/24/24 0649 NA 135* 134* 138 K 3.1* 3.5 3.5 CL 93* 95* 101 CO2 26 27 22* BUN 28* 31* 40* CREATININE 5.36* 5.78* 7.06* GLUCOSE 85 72* 62* CALCIUM 8.2* 7.9* 7.6* PROT 6.1* 6.0* 5.6* BILITOT 0.6 0.7 0.5 ALKPHOS 161* 162* 150 AST 37* 34* 28 ALT <6 <6 <6 Recent Labs 10/22/24 1411 10/23/24 0052 10/24/24 0649 10/24/24 1217 WBC 20.2* 35.0* 31.2* -- HGB 7.2* 6.9* 5.8* 7.5* HCT 22.2* 21.6* 17.9* 23.3* PLT 363 355 316 -- LYMPHOPCT 7.2* 1* 3* -- MONOPCT 6.5 2* 3* -- BASOPCT 1.1 0 1 -- NEUTROABS 16.9* -- -- -- Micro: No results for input(s): COVID19 in the last 72 hours. 10/24/2024 0958 10/24/2024 1005 Aerobic and Anaerobic Culture with Stain [[id number]] Drainage from Arm, Left In process Component Value No component results 10/24/2024 0958 10/24/2024 1439 Culture, Aerobic Bacteria with Gram Stain [[id number]] Drainage from Arm, Left Preliminary result Component Value Culture Culture in progress P Gram Stain Result Many Polymorphonuclear leukocytes per low power field P No organisms seen P 10/24/2024 0958 10/24/2024 1005 Anaerobic culture [[id number]] Drainage from Arm, Left In process Component Value No component results 10/22/2024 2305 10/24/2024 0401 Blood culture Site #1 - Suspected Infection [[id number]] Blood, Venous Preliminary result Component Value Blood Culture No growth at 24 hours P 10/22/2024 1705 10/23/2024 2101 Blood culture Site #2 - Suspected Infection [[id number]] Blood, Venous Preliminary result Component Value Blood Culture No growth at 24 hours P 10/22/2024 1602 10/22/2024 2123 Respiratory Pathogens Panel by PCR [[id number]] Swab from Nasopharynx Final result Component Value SARS-CoV-2 Not Detected Adenovirus Not Detected Coronavirus HKU1 Not Detected Coronavirus NL63 Not Detected Coronavirus 229E Not Detected Coronavirus OC43 Not Detected Human Metapneumovirus Not Detected Human Rhinovirus/Enterovirus Not Detected Influenza A Not Detected Influenza B Not Detected Parainfluenza 1 Not Detected Parainfluenza 2 Not Detected Parainfluenza 3 Not Detected Parainfluenza 4 Not Detected Respiratory Syncytial Virus Not Detected Bordetella pertussis Not Detected Bordetella parapertussis Not Detected Chlamydia pneumoniae Not Detected Mycoplasma pneumoniae Not Detected 10/22/2024 1434 10/22/2024 1458 Aerobic and Anaerobic Culture with Stain [[id number]] (Abnormal) Other from Buttock, Left In process Component Value No component results 10/22/2024 1434 10/24/2024 1028 Culture, Aerobic Bacteria with Gram Stain [[id number]] (Abnormal) Other from Buttock, Left Preliminary result Component Value Culture Few skin camilo present P Many Enterobacter cloacae complex Abnormal P Gram Stain Result Rare Polymorphonuclear leukocytes per low power field Abnormal P Many Gram negative bacilli Abnormal P 10/22/2024 1434 10/22/2024 1458 Anaerobic culture [[id number]] Other from Buttock, Left In process Component Value No component results 10/22/2024 1411 10/23/2024 2101 Blood culture Site #1 - Suspected Infection [[id number]] Blood, Venous Preliminary result Component Value Blood Culture No growth at 24 hours P 10/09/2024 1541 10/14/2024 0950 Aerobic and Anaerobic Culture with Stain [[id number]] Drainage from Fistula Final result Component Value No component results 10/09/2024 1541 10/12/2024 0920 Culture, Aerobic Bacteria with Gram Stain [[id number]] Drainage from Fistula Final result Component Value Culture No growth at 72 hours Gram Stain Result Moderate Polymorphonuclear leukocytes per low power field No organisms seen 10/09/2024 1541 10/14/2024 0950 Anaerobic culture [[id number]] Drainage from Fistula Final result Component Value Culture No growth at 5 days 10/05/2024 1601 10/05/2024 1713 Respiratory culture and Stain [[id number]] (Abnormal) Sputum from Bronchus Final result Component Value Respiratory culture Culture canceled due to poor specimen quality. Recollect if clinically indicated. Gram Stain Result Rare Polymorphonuclear leukocytes per low power field Abnormal Many Epithelial cells per low power field Abnormal Moderate Gram positive bacilli Abnormal Few Gram positive cocci Abnormal Few Yeast Abnormal Smear contains >= 15 squamous cells per low power field, suggestive of poor quality. Culture not performed. Please re-collect if clinically indicated. Abnormal 10/05/2024 1601 10/05/2024 1747 Respiratory Pathogens Panel by PCR [[id number]] Swab from Nasopharynx Final result Component Value SARS-CoV-2 Not Detected Adenovirus Not Detected Coronavirus HKU1 Not Detected Coronavirus NL63 Not Detected Coronavirus 229E Not Detected Coronavirus OC43 Not Detected Human Metapneumovirus Not Detected Human Rhinovirus/Enterovirus Not Detected Influenza A Not Detected Influenza B Not Detected Parainfluenza 1 Not Detected Parainfluenza 2 Not Detected Parainfluenza 3 Not Detected Parainfluenza 4 Not Detected Respiratory Syncytial Virus Not Detected Bordetella pertussis Not Detected Bordetella parapertussis Not Detected Chlamydia pneumoniae Not Detected Mycoplasma pneumoniae Not Detected Lines: LIJ HD cath Radiography/Echo/Other: IR nontunneled catheter placement [[id number]] Collected: 10/23/241114 Order Status: Completed Updated: 10/23/241117 Narrative: [facility] 1950 [id number] Exam Date/Time: 10/23/2024 10:26 Procedure: IR NONTUNNELED CATHETER PLACEMENT Ordering Provider: ZAMBRANO CANDICE Reason For Exam: IV access CLINICAL HISTORY: Venous access needed Procedures: Left sided central line placement Physician: Jordon MEDICATIONS: Local Lidocaine EBL: Minimal. Contrast: None Specimen sent: None COMPLICATIONS: None Fluoroscopy Time: Less than 0.1 minutes Angiographic runs: 0 Fluoroscopic spot images: 0 Fluoroscopy dose: Ka,r = 0 mGy Fluoroscopic saved images were obtained. These images do NOT add additional exposure to ionizing radiation and were captured electronically from the imaging chain. Procedural details: Prior to the procedure red rules were performed which included patient name, date of , and procedure type. All of the risk, benefits, and alternative treatments were explained to the patient and informed consent was obtained and documented. The patient was brought into the interventional radiology suite. The left neck was prepped and draped in the usual sterile fashion. Maximal sterile barrier technique was utilized. All elements of maximal sterile barrier technique were used including a hat, mask, sterile gown, sterile gloves, and a sterile drape. Appropriate hand hygiene using 2 percent chlorhexidine for cutaneous antisepsis was utilized. A sterile ultrasound probe cover and sterile ultrasound gel was utilized. The overlying subcutaneous tissues were anesthetized using one percent lidocaine. Under direct ultrasound visualization, a 21-gauge micropuncture needle puncture needle was advanced into the left external jugular vein. A permanent ultrasound image of needle entry into the vessel was stored to the patient record. A 0.018 micro puncture wire was advanced through the needle and into the central circulation. This was exchanged for 0.035 J-wire. The J-wire was advanced into the IVC. A spot image was obtained. The tract was then dilated and a new triple lumen central line was advanced over the wire. Postplacement fluoroscopy demonstrated appropriate position of the central line. The patient tolerated the procedure well. There were no immediate complications. FINDINGS: Tip of new central line terminates at the cavoatrial junction. Impression: Successful uncomplicated ultrasound and fluoroscopically guided left sided central line placement. The catheter is ready for immediate use. Attending physician was present throughout the entirety of the procedure. Report Dictated on Electronically Signed By: Balta Ruvalcaba MD Electronically Signed Date/Time: 10/23/2024 11:17 AM EDT XR chest 1 view [[id number]] Collected: 10/22/241544 Order Status: Completed Updated: 10/22/241546 Narrative: [facility] 1950 [id number] Exam Date/Time: 10/22/2024 15:17 Procedure: XR CHEST 1 VIEW Ordering Provider: MONTOYA SAMUEL Reason For Exam: sepsis CLINICAL INFORMATION: Shortness of breath. Sepsis. Renal failure. Portable view of the chest at 1535 hours is provided and compared to a previous study dated October 05, 2024. FINDINGS: A tunneled hemodialysis catheter is in place via the left internal jugular vein. The distal tip is in the superior vena cava. The cardiac silhouette and mediastinum are otherwise unremarkable. Bibasilar infiltrates and effusions are noted. There is prominence of the interstitium and central pulmonary vasculature. Impression: 1. Bibasilar infiltrates and effusions. 2. Prominence of the interstitial and central pulmonary vasculature consistent with mild to moderate congestive heart failure/fluid overload. 3. Overall improvement in the aeration of the lungs when compared to the previous study. Report Dictated on Electronically Signed By: Honorio Henson MD Electronically Signed Date/Time: 10/22/2024 3:46 PM EDT IR CVC Tunneled Dialysis Cath Exchange [[id number]] Collected: 10/12/241343 Order Status: Completed Updated: 10/12/241346 Narrative: Patient Name: APOORVA GONZALEZ : 1950 [facility]#: [id number] Exam Date/Time: 10/12/2024 11:51 Procedure: IR CVC TUNNELED DIALYSIS CATH EXCHANGE Ordering Provider: CASTANEDA RUPESH Reason For Exam: ESRD CLINICAL HISTORY: Renal failure. PROCEDURE: Fluoroscopic and ultrasound-guided left tunneled dialysis catheter placement. Physicians: Dr. Andrade. MEDICATIONS: Local lidocaine EBL: Minimal. Specimen sent: None. Complications: None. Fluoroscopy time: 0.3 minutes Angiographic runs: 0 Fluoroscopic spot images: 0 Total Air Kerma: 0.58 mGy Fluoroscopic saved images were obtained. These images do NOT add additional exposure to ionizing radiation and were captured electronically from the imaging chain. Procedural details: All of the risks, benefits, alternatives of the procedure were explained to the patient and all of the patient's questions were answered. The patient was brought into the interventional radiology suite and placed supine on the table. A timeout was performed. Patient's existing left-sided temporary dialysis catheter is too cranial for successful conversion. The patient's left internal jugular vein was interrogated with ultrasound and found to be widely patent. A permanent ultrasound image was stored to the patient's record. The patient's left neck and chest were prepped and draped in the usual sterile fashion. Maximal sterile barrier technique was utilized. All elements of maximal sterile barrier technique including a mask, hat, sterile gown, sterile gloves, and large sterile sheet were utilized. 2% Chlorhexidine antiseptic was utilized for skin sterilization. Sterile ultrasound gel and a sterile ultrasound probe cover were also used. The subcutaneous tissues were anesthetized using 2 percent lidocaine. Under direct ultrasound visualization, a 21-gauge micropuncture needle was advanced into the left internal jugular vein. A permanent ultrasound image of needle entry into the vessel was stored to the patient record. A 0.018 micro puncture wire was then advanced through the needle and into the IVC under fluoroscopic guidance. A spot image was obtained. This was upsized to a 0.035 J-wire. Attention was then directed to the patient's left chest. A subcutaneous tract was created in the left chest to the venotomy site after subcutaneous anesthesia using 2 percent lidocaine. A 28 cm Quentin split tip tunneled dialysis catheter was then pulled through the tunnel and out the venotomy site. A peel-away sheath was then advanced over the wire into the central circulation after serial dilatation. The catheter was placed through the peel-away sheath. Postplacement imaging showed proper positioning of the tunneled dialysis catheter with the tip terminating in the proximal right atrium. Both lumens of the catheter flushed and aspirated appropriately. The catheter was then sutured to the patient's skin using 2-0 silk suture. The venotomy site was closed using skin glue. The patient tolerated the procedure well. FINDINGS: Tip of tunneled dialysis catheter terminates within the proximal right atrium. Impression: Successful uncomplicated ultrasound and fluoroscopic guided placement of a 28 cm tunneled dialysis catheter. The catheter is ready for immediate use. The sutures should not be removed for two weeks. The patient was then transferred to recovery in stable condition. 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 Could not Declot today. PROCEDURE: Venous Access, Nontunneled central venous catheter exchange Procedural Personnel Attending physician(s): Franco Majano DR Indication: Renal insufficiency Additional clinical history: Thrombosed left upper extremity graft Complications: No immediate complications. Impression: 1. Thrombosed left upper extremity graft. Purulent fluid seen leaking from prior access site, precluding thrombectomy. 2. Right IJ occluded cranially with small cysts dump distally which could not be accessed due to clavicular shadowing and patient movement. 3. Successful left-sided internal jugular temporary central venous catheter exchange for a new dialysis catheter, with its tip in the expected location of the cavoatrial junction. Plan: The catheter may be used immediately. PROCEDURE SUMMARY: -Temporary central venous catheter exchange with fluoroscopic guidance -Ultrasound-guided right IJ venous access - Diagnostic venography of the right IJ PROCEDURE DETAILS: Pre-procedure Consent: Informed consent for the procedure including risks, benefits and alternatives was obtained and time-out was performed prior to the procedure. Preparation (MIPS): The site was prepared and draped using all elements of maximal sterile barrier technique including sterile gloves, sterile gown, cap, mask, large sterile sheet, sterile ultrasound probe cover, hand hygiene and cutaneous antisepsis with 2% chlorhexidine. Medical reason for site preparation exception (MIPS): Not applicable Anesthesia/sedation Level of anesthesia/sedation: No sedation Right IJ access Local anesthesia was administered. The vessel was sonographically evaluated and determined to be patent distally. Real time ultrasound was used to visualize needle entry into the vessel and a permanent image was stored. Vein accessed: Internal jugular vein Access technique: Micropuncture set with 21 gauge needle Right IJ Venography Indication for venography: Diagnostic venography due to suspected stenosis or occlusion Catheter tip position for venography: Distal right IJ Venous segment imaged: Distal right IJ Findings: Occlusion of the right IJ cranially. A cross collateral venous varix extends into a stump of the patent distal right IJ Left IJ Catheter exchange A wire was passed through the indwelling tunneled central venous catheter and into the central veins. The catheter was removed, and a new catheter was advanced under fluoroscopic guidance. Catheter tip location was fluoroscopically verified and a permanent image was stored. Catheter placed: 13.5 Fr 20 cm triple-lumen Dialysis Catheter Catheter tip position: Cavoatrial junction. Catheter flush: Heparin (100 units/mL) Closure The catheter was secured. A sterile dressing was applied. Catheter securement technique: Non-absorbable suture Contrast Contrast agent: None Contrast volume (mL): 0 Radiation Dose Fluoroscopy time (minutes): 2.6 Fluoroscopy Dose: Ka,r = 5.1 mGy Additional Details Additional description of procedure: None Equipment details: None Specimens removed: None Estimated blood loss (mL): Less than 10 Report Dictated on Electronically Signed By: Franco Majano DR Electronically Signed Date/Time: 10/09/2024 3:[address] head wo IV contrast [[id number]] Collected: 10/06/24313 Order Status: Completed Updated: 10/06/24326 Narrative: Patient Name: APOORVA GONZALEZ : 1950 Exam Date/Time: 10/05/2024 23:23 Procedure: CT HEAD WO IV CONTRAST Ordering Provider: CARABALLO GEORGE Reason For Exam: AMS EXAMINATION: CT HEAD WO IV CONTRAST HISTORY: AMS - - - - - [id number] - - - - change in mental status. Fever. Malignant hypertension TECHNIQUE: CT head without contrast. Dose reduction was employed with automated exposure control. COMPARISON: September 26, 2024 RESULT: Acute change: No evidence of an acute intracranial process. Hemorrhage: No evidence of acute intracranial hemorrhage. Mass Lesion / Mass Effect: No evidence of an intracranial mass, extra-axial fluid collection, or significant localized mass effect. Chronic change: Patchy foci of low attenuation coefficient are present within the supratentorial white matter which is a nonspecific finding but likely represents moderate microvascular ischemia. Parenchyma: There is moderate generalized volume loss. The brain parenchyma is otherwise within normal limits for age. Ventricles: Commensurate with volume loss. Other: The calvarium, skull base, imaged paranasal sinuses, mastoids, orbits and extracranial soft tissues are unremarkable. Engagement Specialist (topogram) images: No additional findings. Impression: No CT evidence of an acute intracranial abnormality. Report Dictated on Electronically Signed By: Kev Goldstein MD Electronically Signed Date/Time: 10/06/2024 3:[address] chest abdomen pelvis with contrast [[id number]] Collected: 10/06/24 0851 Order Status: Completed Updated: 10/06/24903 Narrative: Patient Name: APOORVA GONZALEZ : 1950 Exam Date/Time: 10/05/2024 23:23 Procedure: CT CHEST ABDOMEN PELVIS W CONTRAST Ordering Provider: CARABALLO GEORGE Reason For Exam: Sepsis EXAM: CT Chest, Abdomen and Pelvis With Intravenous Contrast CLINICAL INDICATION: Sepsis TECHNIQUE: Axial computed tomography images of the chest, abdomen and pelvis with intravenous contrast. This CT exam was performed using one or more of the following dose reduction techniques: automated exposure control, adjustment of the mA and/or kV according to patient size, and/or use of iterative reconstruction technique. COMPARISON: 09/26/2024, 09/14/2024 FINDINGS: CHEST: LUNGS AND PLEURAL SPACES: Large bilateral pleural effusions with adjacent passive atelectasis mildly increased compared to 09/26/2024. No pneumothorax. No new areas of consolidation. No suspicious pulmonary nodules or masses. HEART: Unremarkable. No cardiomegaly. No significant pericardial effusion. No significant coronary artery calcifications. THYROID: Several subcentimeter right-sided thyroid nodules. These do not require any additional follow-up given patient age. ABDOMEN: LIVER: Unremarkable. No mass. GALLBLADDER AND BILE DUCTS: Gallbladder is prominent in size. No calcified stones. PANCREAS: Unremarkable. No ductal dilation. No mass. SPLEEN: Unremarkable. No splenomegaly. ADRENALS: Unremarkable. No mass. KIDNEYS AND URETERS: Atrophic kidneys. No hydronephrosis. No solid mass. STOMACH AND BOWEL: Mild sigmoid diverticulosis. No obstruction. No mucosal thickening. PELVIS: APPENDIX: Appendix not visualized however there are no inflammatory changes within the right lower quadrant. BLADDER: Unremarkable. No mass. REPRODUCTIVE: Unremarkable as visualized. CHEST, ABDOMEN and PELVIS: INTRAPERITONEAL SPACE: Mild perihepatic ascites. No free air. BONES/JOINTS: Bilateral total hip arthroplasties. Old healed right-sided rib fractures. SOFT TISSUES: Diffuse anasarca. VASCULATURE: Moderate atherosclerotic calcifications of the abdominal aorta. Diffuse mesenteric venous congestion. No aortic aneurysm. LYMPH NODES: Unremarkable. No enlarged lymph nodes. TUBES, LINES AND DEVICES: Left-sided central line tip terminates at the cavoatrial junction. Impression: 1. Large bilateral water attenuation pleural effusions with adjacent passive atelectasis. This is mildly increased compared to the prior examination from 09/26/2024. 2. Mild perihepatic ascites along with mesenteric venous congestion and anasarca. Findings are consistent with fluid overload/third spacing. 3. No intra-abdominal abscesses. 4. Mild sigmoid diverticulosis. Report Dictated on Electronically Signed By: Robson Andrade MD Electronically Signed Date/Time: 10/06/2024 9:03 AM EDT XR chest 1 view [[id number]] Collected: 10/05/242039 Order Status: Completed Updated: 10/05/242042 Narrative: Patient Name: APOORVA GONZALEZ : 1950 Exam Date/Time: 10/05/2024 20:36 Procedure: XR CHEST 1 VIEW Ordering Provider: ESTEVEZ JOHN Reason For Exam: cvc line confirmation EXAMINATION: XR chest AP. EXAM DATE & TIME: 10/05/2024 8:36 PM EDT INDICATION: cvc line confirmation ADDITIONAL INFORMATION: 74-year-old female presents for follow-up after central venous catheter insertion COMPARISON: Chest x-rays dated 10/05/2024 and 09/28/2024 TECHNIQUE: Frontal view of the chest was obtained. FINDINGS: Lines/support devices: Cardiac leads project over the chest, somewhat limiting evaluation. Interval placement of a left internal jugular approach central venous catheter with its distal tip projecting over the cavoatrial junction. Cardiomediastinal silhouette: Within normal limits. Lungs/pleura: Moderate layering pleural effusions are seen bilaterally. No evidence of pneumothorax. Osseous structures: No acute osseous abnormality is demonstrated. Other findings: None. Impression: 1. Moderate bilateral layering pleural effusions. 2. Interval placement of left internal jugular approach central venous catheter with its distal tip projecting over the cavoatrial junction. Report Dictated on Electronically Signed By: Clarke Glynn MD Electronically Signed Date/Time: 10/05/2024 8:41 PM EDT XR chest 1 view [[id number]] Collected: 10/05/24 1449 Order Status: Completed Updated: 10/05/24 1451 Narrative: Patient Name: APOORVA GONZALEZ : 1950 Exam Date/Time: 10/05/2024 14:30 Procedure: XR CHEST 1 VIEW Ordering Provider: CARABALLO GEORGE Reason For Exam: SOB CHEST CLINICAL INDICATION: Dyspnea TECHNIQUE: AP portable chest COMPARISON: 09/28/2024 Impression: FINDINGS AND IMPRESSION: SUPPORT DEVICES: EKG leads OSSEOUS STRUCTURES: Unremarkable. HEART AND MEDIASTINUM: The cardiomediastinal silhouette appears unchanged from the prior exam. LUNGS AND PLEURA: Pulmonary venous congestion with interstitial edema and multifocal airspace opacities are present in both lungs. There are new moderate to large right and moderate left pleural effusions. Report Dictated on Electronically Signed By: London Hollis MD Electronically Signed Date/Time: 10/05/2024 2:50 PM EDT Antimicrobials, Start/End Dates: Cefepime 10/22- Vanco 10/22- Silvino 10/23- Impression: Severe sepsis. Infected left buttock pressure ulcer due to enterobacter cloacae complex. R/o infected left arm graft site. Encephalopathy. Leukocytosis. ESRD, on HD. Recent h/o Enterobacter cloacae/ Kleb pneumo/ Kleb oxytoca/ VR-Enterococcus casseliflavus BSI. Recent h/o C diff colitis. Plan: Pt sick due to severe sepsis due to infected left buttock pressure ulcer due to enterobacter cloacae complex, and r/o infected left arm graft site. She remained confused, tachycardic and encephalopathic. Blood cxs -neg so far. Await final cx results. Continue present antimicrobials. High level complexity medical decision making. Will follow. Total time of 50 minutes on this day of encounter spent on, but not limited to review of tests, medical records , complex history , review of external medical records, paper and electronic, counseling and education (patient, family member, caregiver), ordering medications, tests, and procedures, communication with other health care professions, independent interpretation of tests, care coordination, arrangement of outpatient antimicrobial therapy, post-hospitalization therapy and follow-up, and counseling for risks, benefits, and consideration of use of antimicrobials. Images from the original note were not included. PHYSICAL THERAPY [facility] Initial Evaluation Name/MRN: Apoorva Gonzalez ([id number]) Evaluation Date: 10/24/2024 Date of : 1950 Admission Date: 10/22/2024 12:48 PM Age: 74 y.o. Room/Bed: 222-/222-02 A Discharge Recommendation: [facility] Facility Equipment Needed: No Assessment IMPRESSION: Pt admitted 10/23 with sepsis, altered mental status. She has had multiple recent hospital admissions, was at [facility] 09/13-10/12 for Afib and COVID-19, PNA. Prior to that was at [facility] with R thigh hematoma and I&D, went into cardiac arrest. Prior to these hospitalizations was IND but since has been at SNF with plan to transition to half-way care. I spoke with PT at SNF and reports pt mod A to stand and take 3 steps prior to this hospitalization. Today she demo bed mobility max x1, demo limited participation and command follow. If pt able to participate would rec SNF, will keep on trial basis to assess this Admitting Diagnosis: sepsis, AMS Prognosis: guarded Performance Deficits /Impairments: Increased Pain, Decreased Functional Mobility, Decreased Strength, Decreased Safety Awareness, Decreased Endurance, and Decreased Balance Decision Making: Medium Complexity Subjective Per RN pt okay for therapy. Pt cooperative with therapy, limited verbally-states name, answers yes/no Pain: RN managing pain. Mclain-Guerra Pain Ratin = Hurts whole lot Pain Location: BLE ( with mobility) Past Medical History: Medical History[1] Past Surgical History: Surgical History[2] Admission Diagnosis: Patient Active Problem List Diagnosis Date Noted Sepsis, due to unspecified organism, unspecified whether acute organ dysfunction present (HCC) 10/22/2024 Edema of left lower extremity 10/05/2024 COVID-19 09/14/2024 Shortness of breath 03/02/2024 Pulmonary edema, acute ([facility]) 02/19/2024 Gastrointestinal hemorrhage, unspecified gastrointestinal hemorrhage type 01/19/2024 Hypertensive emergency 02/21/2022 Anemia 01/19/2024 Medical Precautions: No active isolations Proper PPE donned/doffed in accordance with facility standards. Fall Risk: Landers Fall Risk Score: 50 (High Risk) Precautions/Restrictions: N/A Family/Caregiver Present: none Overall Cognitive Status: Exceptions - Following commands: follows one step commands with increased time - Safety judgement: decreased awareness of need for assistance and decreased awareness of need for safety - Insights: decreased awareness of deficits - Initiation: requires cues for all - sequencing:cues for all Overall Orientation Status: Oriented to Person Vision: Not Assessed Hearing: normal Social/Functional History Patient admitted from SNF. Assistive Equipment: wheelchair - manual Prior Level of Function Prior Level of ADL Function: Required Assist Prior Level of Mobility: Required Assist; Device: assist for stand-step Prior Level of Transfers: Required Assist Objective Lower Extremity Assessment AROM: WFL PROM: Not assessed this session Strength: Exceptions: grossly decreased, unable to follow command for formal MMT Sensation: Not assessed this session Balance: Balance During Session: Posture: poor Sitting - Static: Max Assist Sitting - Dynamic: Max Assist Standing - Static: NT Standing - Dynamic: NT Bed Mobility: Supine to sit: Max Assist, pt demo supine to sit max x1. Therapist assist pt to manage BLE and trunk. Pt assist to initial BLE movement, limited by pain and cognition. In sit demo some core engagement, require ax x1 to maintain and to return to supine Sit to supine: Max Assist Transfers NT Ambulation Did not assess this session. Outcome Measures AM-PAC How much HELP from another person do you currently need Turning from your back to your side while in a flat bed without using bedrails?: A Lot Moving from lying on your back to sitting on the side of a flat bed without using bedrails?: A Lot Moving to and from a bed to a chair (including a wheelchair)?: Total Standing up from a chair using your arms (wheelchair or bedside chair)?: Total Walking in a hospital room?: Total Stair climbing assessed?: No AM-PAC Inpatient Mobility Raw Score (No Stairs) : 7 JH-HLM JH-HLM Score: Sat at edge of bed Plan Pt would benefit from skilled acute PT services to address Strengthening, Gait Training, Balance Training, Functional Mobility Training, Endurance Training, Safety Education and Training, Stair Training, Pain Management, Equipment Evaluation/Education, Home Management Training, and Positioning. Frequency: 5 visits during current hospital admission or until additional recommendations are made Barriers: Pain and Confusion Safety/Education Safety Safety Devices in place: All fall risk precautions in place, call light within reach, left in bed, patient at risk for falls, and nurse notified Restraints: No Education Education Given To: patient Education Provided: PT Role, PT Goals, Plan of Care, Precautions, Transfer Training, Energy Conservation, Orientation, Equipment, Fall Prevention Education, Discharge Recommendations, and Benefits of Increasing Activity Education Method: Verbal Barriers to Learning: Cognition Education Outcome: Continued Education Needed Goals Patient Stated Goal: Patient unable to participate in goal setting at this time. Encounter Problems Encounter Problems (Active) Balance Patient will maintain dynamic sitting balance for 8 minutes with min assist in order to demonstrate improved postural control and prepare for out of bed mobility. Start: 10/24/24 Expected End: 10/31/24 Exercise Patient will complete lower extremity exercises for 1-2 sets / 5-10 reps in order to improve strength and activity tolerance for mobility. Start: 10/24/24 Expected End: 10/31/24 Mobility Patient will ambulate 5 feet with mod assist and least restrictive device in order to improve safety and independence with mobility. Start: 10/24/24 Expected End: 10/31/24 Transfers Patient will perform bed mobility with min assist in order to improve independence and prepare for out of bed mobility. Start: 10/24/24 Expected End: 10/31/24 Patient will complete sit to stand transfer with max assist to LRAD in order to improve safety and prepare for out of bed mobility. Start: 10/24/24 Expected End: 10/31/24 Therapy Time Individual Co-Treatment Co-Evaluation Time In 0800 Time Out 0808 Minutes 8 Deangelo Connell PT Patient's Physical Therapy Plan of Care supervision is transferred to a [facility] Therapy Services Physical Therapist. Goals and/or treatment plan was established in collaboration with patient/family/other representatives. [1] Past Medical History: Diagnosis Date Chronic kidney disease (CKD) Hemodialysis patient (CMS/HCC) ([facility]) Wednesday, , Wednesday History of blood transfusion 02/27/2022 Hypertension Seizure ([facility]) Developed seizure-like activity on 02/24 during hospital admission [2] Past Surgical History: Procedure Laterality Date AV FISTULA PLACEMENT Left 08/07/2022 COLONOSCOPY N/A 01/25/2024 Performed by Chrissy Gilman MD at [facility] ENDOSCOPY IR CVC TUNNELED DIALYSIS CATHETER PLACEMENT 02/27/2022 IR CVC TUNNELED CATHETER PLACEMENT 02/27/2022 Candis Andrade MD [facility] SPECIAL PROCEDURES IR EMBOLIZATION 01/24/2024 IR EMBOLIZATION 01/24/2024 Jovan Glynn MD [facility] SPECIAL PROCEDURES Speech-Language Pathology SPEECH LANGUAGE PATHOLOGY [facility] Bedside Swallow Evaluation Patient Name: Apoorva Gonzalez Evaluation Date: 10/24/2024 Date of : 1950 Admission Date: 10/22/2024 12:48 PM Age: 74 y.o. Room/Bed: 222-02/222-02 A IMPRESSION: No s/s oropharyngeal dysphagia. No overt clinical s/s pulmonary compromise with PO. Risk factors for aspiration include confusion. RECOMMENDATION: Recommend NPO and meds crushed in puree and the following precautions: - Upright positioning for all PO intake - Slow rate of intake - Small bites/sips Dysphagia NOMS: Level 2: Individual is not able to swallow safely by mouth for nutrition and hydration, but may take some consistency with consistent maximal cues in a therapy env only. Alternative method of feeding is required. Pt would benefit from skilled acute CAREER RESOURCE SPECIALIST services to repeat bedside swallow evaluation. Frequency: 3 days/wk for 2 weeks Barriers: Confusion, Limited safety awareness, Limited participation, and Medical complications Prognosis: fair D/C Recommendations: to be determined Subjective Patient somnolent, confused and flat, somewhat cooperative. Seen semi-upright with head hunched over in bed. Answers no basic questions with weak, soft vocal quality. Follows few basic commands. No visitors at bedside. Spoke with RN Makenna Jerry who cleared pt to be evaluated. Dysphagia History: Retrospective chart review revealed a history of CAREER RESOURCE SPECIALIST services as follows: speech therapy services from 09/17/2024-09/19/2024 with the ultimate recommendation of an adult regular diet with thin liquids and meds as tolerated. The following precautions included: - Upright positioning for all PO intake - Slow rate of intake - Small bites/sips Baseline Diet: Adult diet regular Current Diet: Dietary Orders (From admission, onward) Start Ordered 10/22/241851 NPO diet with enteral medications Diet effective now Comments: Please do not give oral medications if she is not awake enough to take them Question: Medications? Answer: with enteral medications 10/22/241850 Tube Feeding: no Tracheostomy: no Recent Chest Xray/CT of Chest: XR chest 1 view 10/22/2024 Impression 1. Bibasilar infiltrates and effusions. 2. Prominence of the interstitial and central pulmonary vasculature consistent with mild to moderate congestive heart failure/fluid overload. 3. Overall improvement in the aeration of the lungs when compared to the previous study. Report Dictated on Electronically Signed By: Honorio Henson MD Electronically Signed Date/Time: 10/22/2024 3:46 PM EDT Oxygen: Oxygen Therapy: None (Room air) Past Medical History: Medical History[1] Past Surgical History: Surgical History[2] Admission Diagnosis: Patient Active Problem List Diagnosis Date Noted Sepsis, due to unspecified organism, unspecified whether acute organ dysfunction present (HCC) 10/22/2024 Edema of left lower extremity 10/05/2024 COVID-19 09/14/2024 Shortness of breath 03/02/2024 Pulmonary edema, acute (HCC) 02/19/2024 Gastrointestinal hemorrhage, unspecified gastrointestinal hemorrhage type 01/19/2024 Hypertensive emergency 02/21/2022 Anemia 01/19/2024 History of Present Illness: Apoorva Gonzalez is a 74 y.o. female who presents to the emergency department with chief complaint of AMS. Pt is resident of [place] at [facility]. Collateral hx provided by [facility] nurse and EMS. Report one day of increasing weakness and AMS. She receives dialysis 5x/week Wed-Wednesday. No missed sessions. Temp 101.3F at [facility]. Hospitalized from 08/14 - 08/24 at [facility] for cardiac arrest and sepsis and again from 08/26 to 09/06 at for sepsis believed to be due to an infected right thigh wound and hematoma Hospitalized again at [facility] from 09/13 - 10/12 due to covid-19 sepsis and electrolyte derangements Patient Complaint: None stated. Pain: Pt denies any current pain. PPE Worn: gloves Objective Bedside swallow eval completed. Oral Motor Mechanism Patient was not able to participate with a formal oral motor evaluation. Oral Hygiene: moist Swallowing Examination PO Trials - ice chips, (teaspoon) - thin liquid, (teaspoon, cup edge, straw) - fed by clinician Oral Phase Pt with impaired oral receipt of PO trials. No anterior spillage. Unable to assess mastication.. Oral transit time appears adequate. No oral residue. Additional Observations: Pt confused and not oriented to self or location. Pt difficult to arouse and keep engaged. Multiple attempts for pt to look at items being given to her. Pt required feeding assistance with maximal cues (verbal, tactile). Pharyngeal Phase Hyolaryngeal excursion clinically appears adequate and timely per palpation. 1-2 swallows palpated per bolus, likely indicative of adequate pharyngeal clearance. No overt clinical s/s airway penetration as evidenced by no cough, no throat clear, and no change in vocal quality. Additional comments: PO trials were limited due to pt's state of alertness. Re-assessment of bedside swallow evaluation is recommended to continue assessing for overt clinical s/s airway penetration and overall swallowing functioning. Education Education Given: role of therapy Given To: patient and RN Response: no evidence of learning Goals Patient Stated Goal: Patient unable to participate in goal setting at this time. Encounter Problems Encounter Problems (Active) Swallowing Patient will tolerate the least restrictive diet consistency to allow for safe consumption of daily meals Start: 10/24/24 Expected End: 11/07/24 Patient will demonstrate safe swallowing Intervention/techniques Start: 10/24/24 Expected End: 11/07/24 Patient will use appropriate strategies for increased oralpharyngeal swallow function Start: 10/24/24 Expected End: 11/07/24 Therapy Time CAREER RESOURCE SPECIALIST Individual Minutes Time In: 815 Time Out: 834 Minutes: 19 Levi Louis CAREER RESOURCE SPECIALIST Graduate Clinician [1] Past Medical History: Diagnosis Date Chronic kidney disease (CKD) Hemodialysis patient (CMS/HCC) (HCC) Wednesday, , Wednesday History of blood transfusion 02/27/2022 Hypertension Seizure ([facility]) Developed seizure-like activity on 02/24 during hospital admission [2] Past Surgical History: Procedure Laterality Date AV FISTULA PLACEMENT Left 08/07/2022 COLONOSCOPY N/A 01/25/2024 Performed by Chrissy Gilman MD at [facility] ENDOSCOPY IR CVC TUNNELED DIALYSIS CATHETER PLACEMENT 02/27/2022 IR CVC TUNNELED CATHETER PLACEMENT 02/27/2022 Candis Andrade MD [facility] SPECIAL PROCEDURES IR EMBOLIZATION 01/24/2024 IR EMBOLIZATION 01/24/2024 Jovan Glynn MD [facility] SPECIAL PROCEDURES Cosigned by NIRU Quiroz at 10/24/2024 10:19 AM EDT ICU Progress Note Name: Apoorva Gonzalez : 1950(74 y.o.) Date: 10/24/24 Team: MICU Attending: William Subjective: Hospital Summary: Ms Gonzalez is a 74 year old female who presented 10/22 from [facility] due to altered mental status. In the ED was noted to be febrile, tachycardic, tachypneic and with elevated WBC. Received IV fluid bolus, antibiotics. Admitted to [facility] for further work up. Critical care consulted the following day as patient remained febrile, tachycardic and tachypneic. WBC count also continuing to increase with worsening anemia. Interval Events: Ms Gonzalez seen and evaluated at bedside. No acute events overnight. This morning she is confused, making incomprehensible sounds when asked questions. Scheduled Meds:Scheduled Meds[1] Continuous Infusions:Continuous Meds[2] Objective: Last Vitals: BP MAP 150/73 (10/24/24 0502) 93 (10/24/24 0502) Arterial BP MAP Temp 37.1 C (98.8 F) (10/24/24 0302) Pulse 115 (10/24/24 0502) Resp 18 (10/24/24 0502) SpO2 96 % (10/24/24 0502) Weight 48.3 kg (106 lb 7.7 oz) (10/22/24 1508) BMI Body mass index is 18.28 kg/m . I/O: No intake/output data recorded. Ventilator: Oxygen Delivery: Invasive Lines / Tubes / Drains: CVC Triple Lumen 10/23/24 Non-tunneled Left Internal jugular (Active) Number of days: 1 Peripheral IV 10/22/24 Anterior;Right Forearm (Active) Number of days: 1 Hemodialysis Cath Double Lumen 10/22/24 Left Subclavian (Active) Number of days: 1 Central Line Indication: Inadequate peripheral access despite documented ultrasound attempts AND unable to place extended dwell PIV Whyte Indications: NA - patient does not have a Whyte catheter Restraints: NA - patient is not restrained. Wounds: Wound/Incision 09/14/24 Incision Leg Anterior;Right;Upper (Active) Date First Assessed/Time First Assessed: 09/14/241999 Present on Original Admission: Yes Primary Wound Type: Incision Location: Leg Wound Location Orientation: Anterior;Right;Upper Wound/Incision 09/26/24 Pressure Injury Sacrum (Active) Date First Assessed/Time First Assessed: 09/26/24 1700 Present on Original Admission: (c) Primary Wound Type: Pressure Injury Location: (c) Sacrum Pressure Injury Stage: Unstageable Constitutional: General Appearance [x]WDWN []Obese []Cachectic []Thin []Ill Eyes: Inspection of Pupils/Irises Pupils round and react: [x]Yes []No Sclera: []Icteric [x]Non-Icteric Inspection of Conjunctiva/Lids Conjunctiva: []Injected [x]Non-Injected Lids: [x]Intact []Lesion Present ENT/Mouth: External Inspection of ears/nose [x] Normal [] Scar/Lesion/Mass Inspection of teeth/lips/gums Dentition: [][place] Teeth []Dentures Lips/Gums: [x]Intact []Lesion Present Mucosa: [x][place] []Moist []Dry Neck: External Appearance Overall Appearance: [x]Normal []Lesion/Mass/Crepitus Present Trachea midline: [x]Yes []No Thyroid []Normal []Enlarged []Tender []Mass []Absent Respiratory: Respiratory effort []Labored [x]Non-Labored [] Mechanically-Ventilated Auscultation []Clear []Crackles []Wheezes [][place] Cardiovascular: Auscultation Rate: []Regular []Irregular [x]Tachycardia []Bradycardia Rhythm: [x]Regular []Irregular Murmur: []Present [x]Absent Extremities Peripheral Edema: []Present [x]Absent Varicosities: []Present [x]Absent Gastrointestinal: Abdomen Palpation: [x]Soft []Firm []Tender [x]Non-Tender []Distended [x]Non-distended Mass: []Present []Absent Bowel Sounds: [x]Present []Absent Hernia: []Present []Absent Liver/Spleen: []Hepatosplenomegaly []Organomegaly Absent Musculoskeletal: Inspection of Digits and Nails Cyanosis: []Present [x]Absent Clubbing: []Present [x]Absent Ischemia: []Present [x]Absent Infection: []Present [x]Absent Extremities ANDERSON Equally: Except ([]RUE []RLE []LUE []LLE) Strength/Tone: Intact and Normal ([]RUE []RLE []LUE []LLE) Skin: Inspection [x]Normal []Rash []Lesion []Ulcer Palpation [x]Warm []Cool [x]Dry []Clammy []Nodules []Induration []Skin-tightening Cap-Refill: [] <3 sec [] >3 seconds (delayed) Neurologic: GCS EYE: 4 - Opens spontaneously GCS MOTOR: 5 - Localizes to pain (purposeful movements to painful stimulus) GCS VERBAL: 2 - Incomprehensible sounds Total GCS: 11 [] Sensation grossly intact Psych: Mental Status Alert: [x]Yes [] No Oriented: []x0 []X1 []X2 []x3 Mood/Affect []Normal []Flat []Agitated []Depressed []Anxious []Calm []Sedated [x]NAD [facility] within last 24 hours- BMP: Recent Labs 10/22/24 14110/23/24 005 NA 135* 134* K 3.1* 3.5 CL 93* 95* CO2 26 27 BUN 28* 31* CREATININE 5.36* 5.78* CALCIUM 8.2* 7.9* MG -- 1.8 LFTs: Recent Labs 10/22/24 14110/22/24 1451 10/23/24 0052 AST 37* -- 34* ALT <6 -- <6 PROT 6.1* -- 6.0* ALBUMIN 1.4* -- 1.4* BILITOT 0.6 -- 0.7 BILIRUBINU -- Negative -- ALKPHOS 161* -- 162* Glucose: Recent Labs 10/22/24 1301 10/22/24 1411 10/23/24 0052 GLUCOSE -- 85 72* POCGLU 99 -- -- Procal: No results for input(s): PROCAL in the last 72 hours. CBC: Recent Labs 10/22/24 14110/23/24 005 WBC 20.2* 35.0* HGB 7.2* 6.9* HCT 22.2* 21.6* PLT 363 355 MCV 91.0 91.9 RDW 15.3* 15.5* ABGs: No results for input(s): PHART, PFZ4POH, PO2ART, XPR5ZRO, SO2ART, M4RRFMAA in the last 72 hours. Lactic Acid: Recent Labs 10/22/24 1411 LACTATE 1.5 INR: No results for input(s): INR in the last 72 hours. Cardiac Injury Profile: No results for input(s): CKTOTAL, CKMB, TROPONINI in the last 72 hours. Labs in Last 3 months: Lab Results Component Value Date TSH 3.30 09/14/2024 INR 1.0 10/09/2024 Microbiology- Urine Cx: No results found for: URINECX Blood Cx: Lab Results Component Value Date BLOODCX No growth at 24 hours 10/22/2024 Sputum Cx: Lab Results Component Value Date RESPCULT 10/05/2024 Culture canceled due to poor specimen quality. Recollect if clinically indicated. Gram Stain: Lab Results Component Value Date LABGRAM (A) 10/22/2024 Rare Polymorphonuclear leukocytes per low power field LABGRAM Many Gram negative bacilli (A) 10/22/2024 PNA PCR: Lab Results Component Value Date HUMANMETAPNE Not Detected 10/22/2024 COVID19: No results found for: COVID19 Legionella Ag: Lab Results Component Value Date LEGIONELLAPN Not Detected 09/26/2024 Strep Ag: No results for input(s): STREPPNEUMO in the last 72 hours. Imaging- No new imaging to review Assessment and Plan: Principal Problem: Sepsis, due to unspecified organism, unspecified whether acute organ dysfunction present (HCC) Assessment/Plan: Severe sepsis HAGMA, ?d/t uremia ESRD on HD TTS Acute on chronic normocytic anemia Seizure disorder, on Keppra Hypertension Hyperlipidemia Debility Severe malnutrition -Infectious work up initiated, continue broad spectrum antibiotics -Antibiotics per ID, currently on meropenem, vancomycin -Consider left AV graft for source of infection given brown drainage. Would consider transfer to [facility] for evaluation by vascular surgery -GARMENT ALTERATION EXAMINER per nephrology -Transfuse to maintain hemoglobin >7 -Hypoglycemia protocol GI Prophylaxis: none indicated DVT Prophylaxis: Heparin subcutaneous Disposition: Transfer to [facility] Critical Care Time: 38 minutes Total critical care time caring for this patient with life threatening, unstable organ failure, including direct patient contact, management of life support systems, review of data including imaging and labs, discussions with other team members and physicians, excluding procedures. [1] chlorhexidine, , Topical, Daily collagenase, , Topical, Daily heparin, 5,000 Units, SubCUTAneous, 2 times per day levETIRAcetam, 500 mg, IntraVENous, Daily meropenem, 1,000 mg, IntraVENous, q12h mupirocin, , Nasal, BID [Held by provider] sevelamer carbonate, 800 mg, Oral, TID WC sodium chloride 0.9%, 5-40 mL, IntraVENous, 2 times per day sodium chloride 0.9%, 5-40 mL, IntraCATHeter, q8h vancomycin (Vancocin) intermittent dosing (placeholder), , Other, RX Placeholder [2] Images from the original note were not included. Pharmacy Managed Vancomycin Dosing Service Progress Note Consult Date: 10/23/24 Patient Name: Apoorva Gonzalez Allergies: Patient has no known allergies. Age: 74 y.o. Sex: female Ht: Height: 162.6 cm (5' 4) TBW: Weight: 48.3 kg (106 lb 7.7 oz) BMI: Body mass index is 18.28 kg/m . Lab Results Component Value Date CREATININE 5.78 (H) 10/23/2024 CREATININE 5.36 (H) 10/22/2024 BUN 31 (H) 10/23/2024 BUN 28 (H) 10/22/2024 WBC 35.0 (HH) 10/23/2024 WBC 20.2 (H) 10/22/2024 Renal: [x]HD []CRRT []PD [] CrCl Infectious Diagnosis: Sepsis Antimicrobials: Patient recently received an antibiotic (last 12 hours) Date/Time Action Medication Dose Rate 10/23/24 1110 Given mupirocin (Bactroban) 2 % ointment 10/23/24 1109 New Bag meropenem (Merrem) 1,000 mg in sodium chloride 0.9 % 100 mL IVPB 1,000 mg 33.3 mL/hr 10/23/24 0741 New Bag cefepime (Maxipime) 1,000 mg in sodium chloride 0.9 % 50 mL IVPB 1,000 mg 100 mL/hr Assessment/Plan: Intermittent vancomycin dosing (Pulse Dosing). Lab Results Component Value Date YADINDOM 17.6 10/23/2024 Give Vancomycin 500 mg x1 (post HD if receives HD today, still ok to give if does not receive HD) based on patient age, weight, renal status and infectious diagnosis (10 mg/kg). Will schedule next random level once HD schedule known. Follow renal status closely. Orders placed. Thank you for this consult. Please page/call with questions. Date: 10/23/24 Time: 12:17 PM Leticia Carty RPh (available on [employer]) Images from the original note were not included. PHYSICAL THERAPY [facility] Name/MRN: Apoorva Gonzalez ([id number]) Date: 10/23/2024 Therapy eval and treat orders received. Chart review complete. Attempted session this AM at 833, pt presenting with increased lethargy and decreased responsiveness to verbal/tactile stimuli. Pt repetitively stating, My name is Apoorva MARIE made aware. RN informed planned transfer to ICU d/t ongoing sepsis. Will continue to follow and attempt as appropriate during acute medical stay. Julian Lerner PT Spiritual Care Note [facility] Palliative Care Patient Name:Apoorva Gonzalez Chief Complaint: Chief Complaint Patient presents with Altered Mental Status Pt came from shelter. Squad was called for weakness and altered mental status. Pt is not diabetic. Gcs 14 due to confusion a&ox2. Pt bgl was 99. Pt fistula is in left arm . Reason for visit: Previous admission Services Provided To:patient Background and visit note: Reintroduced myself to patient. Visited with patient's brother at previous visit. She was doing good. Patient was sleeping when I came to visit. Will follow up. Is there spiritual distress? NO Comment: Interventions: spiritual support provided, emotional support provided, and validated feelings. Care Plan: build trust and connect to higher power. Follow Up: PRN and when patient is able. Debriefed: with hydraulic plumber helper team. Gretchen Adames 10/23/24 Nutrition Assessment Type and Reason for Visit: Initial (ICU admit) Nutrition Recommendations/Plan: NPO and off unit for tunneled line placement. Recommend ADAT as deemed safe and appropriate by CAREER RESOURCE SPECIALIST Should alternative nutrition route align with goals of care and be established, would recommend: Nepro with CarbSteady @ 35 mL/hr goal rate Proposed regimen to provide: 1486 kcal, 68 g protein, 611 mL free fluid (31 kcal and 1.4 g protein/kg CBW or 27 kcal and 1.2 g protein/kg IBW) RDN to continue to monitor and follow weekly. NFPE to be completed on next assessment Malnutrition Assessment: Malnutrition Status: Insufficient data (off unit at time of assessment) Context: Chronic Illness Nutrition Assessment: 74 year old woman with PMHx: ESRD with TRS schedule, HTN, and seizure. With recent lengthy admit to [facility] 09/13-10/12/24 with confusion, generalized pain and SOB. Founds to be COVID+ on arrival. +Blood cultures for Enterobacter cloacae, antibiotics changes to vanc/cefepime and ID recommended 3 days of remdesivir. Course complicated by lethargy and AMS following iHD on 09/14 and GARMENT ALTERATION EXAMINER later called with unresponsive episode, and hypoxia with hypoglycemia. Required levophed and transferred to ICU and started on CRRT. +Decadron and required 2u PRBC for Hgb of 5.9. CRRT weaned to iHD on 09/16; S/P Dobhoff placement on 09/16 due to encephalopathy, however on 09/17 CAREER RESOURCE SPECIALIST recommended Easy to Chew diet and dobhoff removed. Transferred from ICU to [facility] on 09/17. Palliative care consulted and supporting, as well as nephrology for ESRD. Unfortunately, she was transferred back to the ICU on 10/05/2024 due to concerns for recurrent sepsis after getting a fever and tachycardia with a lactic acidosis during dialysis. Patient [facility] 11-11-2024 Miscellaneous Notes Care Management Progress Note Short Medical why still here: Anticipate Medical readiness for discharge today. Requested update from attending. Also updated attending that patient's Auth is good through today. Planned Discharge Disposition: [facility] [facility] approved 11/06/24 and Auth approved 11/08-11/11/24 Barriers/Today we still Wait: Attending completion of discharge workflow, Clinical stability Length of Stay (Days): 20 GMLOS: 9.6 Noted response from attending, plan for discharge today. Updated facility. Discharge order noted. Scheduled discharge transportation in [employer] for 1700. Spoke with patient's brother Deshawn over the phone regarding transportation plan. Confirmed pickup time is 1700. Discussed patient may have a co-pay for ambulance depending on their individual insurance coverage. Advised Deshawn to call number on back of insurance card with questions or concerns. Updated bedside RN via secure chat and requested completion of their portion of the SHERIE. Facility notified of transportation time and discharge documents including Progress notes, MAR, LABS, and Vitals were uploaded into careport for review. Discharge summary note not available at this time. Auth obtained to return to [place] of [facility] until 11/11. MD updated. RN reports continued bleeding, low BS and pain this am. Will follow. Per [facility] auth yesterday and that they started a new auth today. Received notification that [facility] has auth for her to return. Noted hgb drop and vascular sx at bedside today to examine her LUE incision, no need for intervention at this time. Facility asked when auth is good until, awaiting response. Updated notes sent to [facility] via [employer] per [facility] request. Await review and response regarding ability to accept. [facility] notified. [facility] messaged to send updates to [facility] with request to start auth to return. Care Management Progress Note Short Medical why still here: s/p graft hematoma sx yesterday for bleeding issues. Vascular signed off this am, hgb stable. Planned Discharge Disposition: [facility], needs auth to return to [facility], PT asked to see today for updated notes. Barriers/Today we still Wait: Facility pre-cert Length of Stay (Days): 15 GMLOS: 4.9 REPORT CALLED TO 6W OPERATIVE REPORT DATE OF SERVICE: 11/05/2024 PRE-PROCEDURE DIAGNOSIS: 1) Left upper extremity hematoma 2) Acute blood loss anemia 3) Surgical wound dehiscence POST-PROCEDURE DIAGNOSIS: As above PROCEDURE PERFORMED: Exploration of left upper extremity with evacuation of hematoma SURGEON: Raffy Fernandez MD ASSISTANTS: Maria A Khan MD (PGY-3) FINDINGS: Approximately 100 ml of old hematoma evacuated from prior AVG tract. General oozing present. Venous anastomosis is without bleeding. Left radial pulse palpable. ANESTHESIA: General ESTIMATED BLOOD LOSS: < 50 ml acute blood loss. Approximately 100 ml old hematoma evacuated. COMPLICATIONS: None SPECIMENS: None IMPLANTS: None WOUND CLASS: 2 INDICATIONS FOR PROCEDURE: The patient is a 74-year-old female with recent explant of a left upper extremity arteriovenous graft secondary to exposed graft and infection. Overnight, the patient developed a significant left upper extremity hematoma leading to dehiscence of the axillary incision. While the bleeding was temporized, operative exploration was recommended for control of bleeding and additional evacuation of hematoma. Recommendations were discussed with the patient as well as with her power of attorney law clerk and brother Deshawn. They elected to proceed. PROCEDURE IN DETAIL: The patient was taken to the operating room and placed in the supine position. General anesthesia was induced. Perioperative antibiotics of Ancef were administered. The patient's left upper extremity was prepped and draped in the usual sterile fashion. A timeout was performed verifying the correct patient, side, site, and procedure to be performed. The patient's axillary incision was approximately 90% open and the additional suture at the proximal portion was cut. Old hematoma was evacuated and the wound was irrigated with normal saline. The venous anastomosis was identified and there was no bleeding or oozing in this area. There was surface ooze present but no identifiable bleeding vessel. Manual compression was then performed of the tunnel where the graft previously resided. This evacuated an additional hematoma. The tract was irrigated with normal saline. Inspection of the wound showed surface oozing within the tract. This was controlled with electrocautery. The mid upper arm incision was opened by cutting the previously placed nylon sutures. The tract was again inspected from this incision with no additional bleeding identified. The wound was then irrigated with normal saline. The wound was then observed for approximately 5 minutes without any hemostatic agent or pressure applied. No additional bleeding was identified and there was no welling up of blood within the incisions. The incisions were then closed with interrupted 2-0 nylon vertical mattress sutures. A sterile dressing was then applied including an Rosey wrap from the hand to the axilla. All sponge and needle counts were correct at the conclusion of the case. The patient was awakened from general anesthesia and transferred to the recovery area in stable condition. The patient's left radial pulse remained palpable at the conclusion of the case. Raffy Fernandez MD Vascular Surgery Date: 11/05/2024 Location: [facility] OR Name: Apoorva Gonzalez, : 1950, Diagnosis Pre-op Diagnosis * Bleeding [R58] Post-op Diagnosis * Bleeding [R58] Procedures Evacuation of left upper extremity hematoma and control of bleeding Surgeons * Raffy Fernandez - Primary Procedure Summary Anesthesia: * No anesthesia type entered * ASA: III Estimated Blood Loss: 35 mL Drains: * None in log * Staff: Labor Representative: Kori Khan RN Relief Scrub: Mak Adler RN Scrub Person: Tc Leonard Findings: hematoma evacuation of left upper extremity with control of oozing from prior graft site, closure of incisions Complications: None; patient tolerated the procedure well. Specimens Collected: Order Name Source Comment Collection Info Order Time HEMOGLOBIN AND HEMATOCRIT, BLOOD Blood, Venous Recommend 1 hour post transfusion 11/05/2024 11:48 AM PREPARE RBC 11/05/2024 11:48 AM Transfusion indications HGB <7.0 gr/dl Has consent been obtained? Yes Wound Class: Class I: Clean Blood Products: None Prophylactic Antibiotics: Procedure appropriate prophylactic antibiotic(s) given within 1 hour of surgical incision (two hours if receiving Vancomycin or flouroquinolone) Cosigned by Raffy Fernandez MD at 11/05/2024 3:46 PM EDT Rapid response called to bedside for continued bleeding of left upper arm surgical site. On arrival pt had bled through dressing and onto bed pads. Dressing removed and pressure held. Attending and vascular resident notified by bedside staff. Vascular at the bedside. Surgical wounds cleaned and clots evacuated. Surgicel placed by resident and dressing replaced. One unit of blood already ordered and hung by bedside staff for hgb drop. Pt remains awake, alert and stable throughout. Bedside staff will follow up with vascular surgery if bleeding becomes an issue again. Rapid available to help if needed. 0335 - called to bedside to see patient for large amount of new bloody drainage from left upper arm. Upon assessment, incision is open and actively bleeding. Arm is firm and incision below in forearm is beginning to ooze. Pressure dressing applied. Patient states that when she was being repositioned in bed she felt a sudden gush of fluid from upper arm. Denies numbness/tingling. Strong radial pulse and good cap refill. Surgery resident paged via secure chat. VSS. 0400 - surgery resident here now to evaluate. Care Management Progress Note Short Medical why still here: Monitoring Hgb, has been fluctuating for several days. Planned for Dialysis today. Planned Discharge Disposition: [facility] [place] [facility], heather, Auth Pending. [facility]. Requested update from facility on Auth status. Barriers/Today we still Wait: Clinical stability, Attending completion of discharge workflow, Facility pre-cert Length of Stay (Days): 13 GMLOS: 4.9 OPERATIVE REPORT DATE OF SERVICE: 11/02/2024 PRE-PROCEDURE DIAGNOSIS: Infected left upper extremity arteriovenous graft POST-PROCEDURE DIAGNOSIS: As above PROCEDURE PERFORMED: Excision of infected left upper extremity arteriovenous graft with vein patch repair of left brachial artery SURGEON: Raffy Fernandez MD ASSISTANTS: Francisco Javier Somers MD (PGY-5) FINDINGS: Well incorporated graft in the proximal portion of the graft. Exposed graft present at the arterial anastomosis. Graft was excised in it's entirety. Left palpable pulse was present at the conclusion of the case. ANESTHESIA: General ESTIMATED BLOOD LOSS: 300 ml COMPLICATIONS: None SPECIMENS: 1) Left upper extremity AVG for culture 2) Left upper extremity distal AVG for culture IMPLANTS: Ti drain to be removed WOUND CLASS: 4 INDICATIONS FOR PROCEDURE: The patient is a 74 yo female with history of end stage renal disease and left upper arteriovenous graft. She was admitted to the hospital for sepsis and bacteremia. There was concern about her graft and it being infected. It was also occluded. Explant of the AVG was recommended for source control. Risks, benefits, and alternatives were discussed with the patient and her brother Deshawn and they elected to proceed. PROCEDURE IN DETAIL: The patient was taken to the operating room and placed in the supine position. General anesthesia was induced. Perioperative antibiotics of Ancef were administered. The patient's left upper extremity was prepped and draped in the usual sterile fashion. A timeout was performed verifying the correct patient, side, site, and procedure to be performed. A Tegaderm was placed over the patient's ulceration overlying the graft near the arterial anastomosis. Using a 10 blade scalpel, the patient's axillary incision was opened along its length. Dissection was carried down through the subcutaneous tissues using electrocautery. The arteriovenous graft was encountered and noted to be well incorporated. The graft was then cleared of surrounding tissues and followed proximally to the level of the axillary vein. The patient was given 3000 units of heparin for systemic anticoagulation. The anastomosis was encountered. Control was obtained of the axillary vein using bulldog clamps. Using an 11 blade scalpel, the anastomosis was taken down off the axillary vein. The graft was noted to be thrombosed. Following removal of the graft, the axillary vein was sewn in an end-to-end fashion using 5-0 Prolene suture. No tension was present. The remainder of the graft was then freed using Metzenbaum scissors and electrocautery within the incision and extending distally toward the antecubital fossa. A transverse incision was then made overlying the midportion of the arteriovenous graft in the mid upper arm. Dissection was carried down through the subcutaneous tissues using electrocautery. The graft was encountered and cleared of surrounding tissues using electrocautery and Metzenbaum scissors. The graft was then clamped with a DeBakey clamp distally within the incision and transected. The graft was then cleared of surrounding tissues and from the overlying skin using Metzenbaum scissors and electrocautery. The graft was noted to be well incorporated within this region as well. Once completely freed the graft was removed and sent as specimen for culture. The distal aspect of the arteriovenous graft was then cleared from the mid arm transverse incision extending down toward the arterial anastomosis again using Metzenbaum scissors and electrocautery. The axillary incision was then inspected and hemostasis was secured. The wound was irrigated with normal saline. The tract was then closed using 3-0 Vicryl suture. 3-0 Vicryl deep dermal sutures were then placed followed by running 4-0 Monocryl subcuticular suture at the skin. The incision was then covered with a sterile Tegaderm. Next turned our attention to the arterial limb of the arteriovenous graft and the ulceration. The ulceration was inspected and fibrinous tissue overlying the opening was removed exposing the graft below. An elliptical incision was made around the ulceration to healthy skin. The arterial limb was then cleared toward the mid upper arm incision using Metzenbaum scissors and electrocautery and the graft brought out through the antecubital incision. The graft was then followed toward the brachial artery and the brachial artery was identified and cleared of surrounding tissues. Silastic Vesseloops were placed proximally and distally to the anastomosis for control of the brachial artery. The anastomosis was then taken down using an 11 blade scalpel. The arterial portion of the graft was then sent as a separate specimen for culture. At this point, the entire graft had been explanted. Excellent inflow was present as was good backbleeding from the brachial artery. The artery was then flushed with heparinized saline. A small branch of the basilic vein was identified within the incision and doubly clipped and transected. The branch was then opened longitudinally creating a vein patch to be used for repair of the brachial artery. Using 6-0 Prolene in a running fashion, a patch anastomosis was created between the vein patch and the brachial artery arteriotomy. Prior to completion of the anastomosis, backbleeding for bleeding was allowed in order to vent the artery of air and debris. The anastomosis was then completed. Inflow was then restored followed by outflow through the brachial artery. A repair suture was placed at the proximal portion of the anastomosis. The repair was then inspected. Excellent pulsatile flow was present through the repair and a palpable radial pulse was present distally at the wrist. The wound was then irrigated with normal saline. Hemostasis was difficult to obtain despite giving protamine, the use of Nu-Knit gauze, and thrombin spray. There was generalized oozing from the graft tunnel. The anastomoses were hemostatic. Manual pressure was held to help achieve hemostasis. The elliptical incision was then closed with interrupted 2-0 nylon suture. A Ti drain as well as a strip of Nu-Knit gauze was placed within the tunnel extending toward the axillary incision as well as toward the arterial repair and sutured in place using nylon suture. The remainder of the mid upper arm incision was closed with interrupted 2-0 nylon suture. The arm was then dressed with 4 x 4 gauze, ABD pads, Kerlix, and Rosey wrap. All sponge and needle counts were correct at the conclusion of the case. The patient was awakened from general anesthesia and transferred to the recovery area in stable condition. At the conclusion of the case, a left radial pulse remained palpable. Within the wound the [place] drain remains as it is a long strip of Nu-Knit hemostatic agent to be removed at a later date. Raffy Fernandez MD Vascular Surgery Date: 11/02/2024 Location: [facility] OR Name: Apoorva Gonzalez, : 1950, Diagnosis Pre-op Diagnosis * Sepsis, due to unspecified organism, unspecified whether acute organ dysfunction present (HCC) [A41.9] Post-op Diagnosis * Sepsis, due to unspecified organism, unspecified whether acute organ dysfunction present (HCC) [A41.9] Procedures EXCISION OF LEFT UPPER EXTREMITY INFECTED GRAFT 79012 - UT EXCISION INFECTED GRAFT EXTREMITY Surgeons * Raffy Fernandez - Primary Procedure Summary Anesthesia: General ASA: III Estimated Blood Loss: 350 mL Drains: Open Drain Left (Active) Specimens ID Source Type Tests Collected By Collected At Frozen? Priority Lab ID A Arm, Left Tissue AEROBIC AND ANAEROBIC CULTURE WITH STAIN Raffy Fernandez MD 11/02/24 0913 [id number], [id number] Description: left upper extremity AV fistula B Arm, Left Tissue AEROBIC AND ANAEROBIC CULTURE WITH STAIN Raffy Fernandez MD 11/02/24 1017 [id number], [id number] Description: LEFT ARM DISTAL AV FISTULA GRAFT Staff: Labor Representative: Nicole Hyatt RN Relief Labor Representative: Alicia Foley RN Scrub Person: Tc Leonard Findings: L radial artery pulse palpable at conclusion of case. There is a ti drain in place and a long strip of cellulose clotting matrix. Complications: None; patient tolerated the procedure well. Specimens Collected: Order Name Source Comment Collection Info Order Time AEROBIC AND ANAEROBIC CULTURE WITH STAIN Arm, Left Collected By: Raffy Fernandez MD 11/02/2024 9:14 AM AEROBIC AND ANAEROBIC CULTURE WITH STAIN Arm, Left Collected By: Raffy Fernandez MD 11/02/2024 10:17 AM BASIC METABOLIC PANEL WITH MG REFLEX Blood, Venous 11/02/2024 11:53 AM HEMOGLOBIN AND HEMATOCRIT, BLOOD Blood, Venous 11/02/2024 11:53 AM Wound Class: Class IV: Dirty Blood Products: None Prophylactic Antibiotics: Pre-operative antibiotics were not given because the patient is on continuous antibiotics for documented preoperative infection. Cosigned by Raffy Fernandez MD at 11/02/2024 2:59 PM EDT Care Management Progress Note Short Medical why still here: Patient from [facility] for vascular surgery to assess AV fistula. Patient is scheduled for surgery on Wednesday. Planned Discharge Disposition: [facility]- return to [facility] once medically stable Barriers/Today we still Wait: Clinical stability Length of Stay (Days): 10 GMLOS: 4.9 Care Management Progress Note Short Medical why still here: -Pt will transfer to [facility] for vascular surgery to evaluate if new AV fistula will be needed. -Now on PO ATB -Monitoring labs -Has temporary HD cath and non-tunneled L IJ Planned Discharge Disposition: Pt is from [facility] and will return when medically ready. Pt does need auth before she can return. Pt gets HD at facility 5 days/week at facility. Barriers/Today we still Wait: Administering IV medications, Clinical stability, Symptomatic control, Vascular recommendations and Facility pre-cert business segment manager to follow and assist as needed. Length of Stay (Days): 9 GMLOS: 4.9 Sent updated notes to return back to [facility] via [facility] per [facility] request. Await review and response regarding ability to accept. [facility] notified. Care Management Progress Note Short Medical why still here: Treating sepsis with IV ATB, ID following. BP's elevated-utilizing prn BP meds. Needs fistula placement for HD. Receives HD T//WED. Has temporary HD cath in place. Will need probable transfer to [facility] for new fistula placement. Left central line to be pulled. Pt will transition to PO ATB at discharge. Planned Discharge Disposition: [facility] Facility Back to [facility]-new auth will be needed when pt is closer to medical stability once she has fistula placement. Tasked BODY CORPORATE MANAGER to send updated clinicals to facility. Did speak with her brother Deshawn and confirmed pt will return to [place] [facility]. Barriers/Today we still Wait: Administering IV medications, Clinical stability, Symptomatic control, new fistula Per 10/29 IM note, if pt does not improve within 2-3 days, brother (GENET) may consider hospice. However, hospice will not be pursued at this time. business segment manager to follow and assist as needed. Length of Stay (Days): 8 GMLOS: 4.9 Family Communication Number Called: [phone] Name of Designated Family Diesel Crane Operator: Deshawn Crystal HCPOA/ Brother I spoke with the individual listed above Family Diesel Crane Operator Updated on the Following: Changed Code staus to DNRCCA , please see my progress note from today for details Care Management Progress Note Short Medical why still here: receiving hemodialysis on Wednesday, , Wednesday schedule. Has non-tunneled central line. On IV keppra and meropenem. Receiving PRBC today. Planned Discharge Disposition: [facility] Facility Barriers/Today we still Wait: Clinical stability, Administering IV medications, Symptomatic control, Diagnostic workup Requested orders for PT&OT eval for auth for return to [place] [facility]. Length of Stay (Days): 5 GMLOS: 4.9 Referral placed to return back to [facility] via [facility] per [facility] request. Await review and response regarding ability to accept. [facility] notified. ICU Transfer Checklist Transfer Med Reconciliation (resume home meds if able, convert to PO if able) Complete Antibiotics (name, indication, duration, convert to PO if able) Yes, addressed in today's progress note Steroid (indication, duration, convert to PO if able) None Anticipated [place] Medications (ICU initiated) or Dose Changes and Indication No Permanently Discontinued Home Medications and Reason for medication contraindication No Whyte Catheter (please remove if able. Note: place DC order) No Central Line (please remove if able. Note: place DC order) Yes, indication poor peripheral IV access Transfer Discussed with: Dr Guillen If additional questions for ICU team within 24 hours of ICU transfer, page #[phone] for clarifications. Patient was transferred out of ICU to hospitalist service. Care Management Progress Note Short Medical why still here: Re-admitted 10/22 with sepsis, AMS and buttock wound. Consults to Nephro, Palliative Care, Wound Care and PT/OT. IV Merrem 1gm Q12. Non-tunneled left internal jugular placed. AV fistula felt to be occluded. Chart review shows that patient recently discharged from [facility] to [facility]. Task sent to [facility] to send referral for possible return. PT recommending SNF. Will continue to follow for ongoing needs and improvement in mentation. [facility] Pending ability to accept back Barriers/Today we still Wait: Clinical stability, Symptomatic control Length of Stay (Days): 2 GMLOS: 4.9 Family Communication Number Called: [phone] Name of Designated Family Diesel Crane Operator: Deshawn Crystal Relationship to patient: Brother Outcome: There was no answer when the number listed above was called and I left a HIPPA compliant message at the number listed above Family Diesel Crane Operator Updated on the Following: -Planned to give non-urgent medical update and re-introduce palliative care team. -No answer. Message left with callback number. -Await callback. Signed, Lilliana Rae APRN, CNP, [facility] Palliative Care/Hospice [facility] [phone] Family Communication Number Called: n/a Name of Designated Family Diesel Crane Operator: Deshawn Crystal Relationship to patient: Brother Outcome: I spoke with the individual listed above Family Diesel Crane Operator Updated on the Following: -Received callback from Deshawn arredondo. -Introduced the palliative care service to the patient and/or family. Discussed that we see patients with serious illnesses. Our role is to assist with pain and symptom management and to support the patient and family to promote quality of life. We at times also assist in discussions regarding goals of care and clinical decisions. -Provided medical update and discussion around chronically ill condition and concern that infections may continue to get worse, more resistant to ATBX. -States last dialysis was yesterday. -He is on the way from [facility] (2 hours) -Discussion around code status. DNR on file, however remains full code at this time. -Questions answered, concerns addressed, emotional support provided. -Return tomorrow. Signed, Lilliana Rae APRN, CNP, [facility] Palliative Care/Hospice [facility] [phone] 30 Day Readmission. Hospital Readmission Questionnaire not completed due to patient readmitted from skilled or rehabilitation facility. documented in this encounter [facility] 11-01-2024 Consult note Associated Order (s): IP CONSULT TO VASCULAR SURGERY Vascular Surgery Consultation Note Reason for Consult: Left AV fistula concern for clot and source of infection leading to sepsis History of Present Illness: Apoorva Gonzalez is a 74 y.o. female with PMHx hypertension, ESRD, seizure, hemodialysis (Wednesday, , Wednesday), PSH AV fistula placement (Dr. Fernandez 2022) (additional history below) who presents to [facility] ED with a chief complaint of transferred from [facility] for management of left AV fistula clot/infection. Vascular surgery was consulted for the evaluation and management of left AV fistula clot/infection. Patient is altered, poor historian. Per chart review: Patient presented on 10/22 from SNF due to altered mental status, was admitted to the ICU for management of sepsis, patient was transferred out of ICU on 10/24 patient was receiving meropenem and vancomycin for infected pressure ulcer on left buttocks. Patient is ESRD receives hemodialysis Wednesday, , Wednesday via Vas-Cath. Upon discussion with the patient's POA/brother Deshawn it was decided to transfer to [facility] for vascular assessment and possible removal of current fistula. This morning patient denies chest pain/shortness of breath/fever/chills/nausea/vomiti ng. Reports some pain in her right arm Pertinent social history: Alcohol use: 2 glasses of wine per week. Tobacco use: The patient denies current or previous tobacco use. Drug Use: denied.. Current workup demonstrates: Patient is afebrile, tachycardic to 117, BP of 155/96. WBC 20.4, Hgb 8.0, platelets 557. Creatinine 2.98 IMPRESSION: Apoorva Gonzalez is a 74 y.o. female with AV fistula concerning for infection/clot. RECOMMENDATIONS: No acute vascular surge intervention at this time LUE access duplex OR for assessment of AV fistula clot/infection 11/02 HD through Vas-Cath T, Th, S Reach out to nephrology about adjusting dialysis Continue Bactrim Case will be discussed with Dr. Fernandez Medical History[1] Surgical History[2] Current Medications: Continuous Meds[3] PRN Meds[4] Scheduled Meds[5] Allergies: Patient has no known allergies. Social History Socioeconomic History Marital status: Spouse name: Not on file Number of children: Not on file Years of education: Not on file Highest education level: Not on file Occupational History Not on file Tobacco Use Smoking status: Never Smokeless tobacco: Never Vaping Use Vaping status: Never Used Substance and Sexual Activity Alcohol use: Yes Alcohol/week: 2.0 standard drinks of alcohol Types: 2 Glasses of wine per week Comment: weekly Drug use: Never Sexual activity: Not on file Other Topics Concern Not on file Social History Narrative Not on file Social Drivers of Health Financial Resource Strain: Patient Unable To Answer (10/23/2024) Overall Financial Resource Strain (CARDIA) Difficulty of Paying Living Expenses: Patient unable to answer Food Insecurity: No Food Insecurity (10/31/2024) Hunger Vital Sign Worried About Running Out of Food in the Last Year: Never true Ran Out of Food in the Last Year: Never true Transportation Needs: No Transportation Needs (10/31/2024) PRAPARE - Transportation Lack of Transportation (Medical): No Lack of Transportation (Non-Medical): No Physical Activity: Not on file Stress: Not on file Social Connections: Not on file Intimate Partner Violence: Not At Risk (10/31/2024) Humiliation, Afraid, Rape, and Kick questionnaire Fear of Current or Ex-Partner: No Emotionally Abused: No Physically Abused: No Sexually Abused: No Housing Stability: Low Risk (10/31/2024) Housing Stability Vital Sign Unable to Pay for Housing in the Last Year: No Number of Times Moved in the Last Year: 0 Homeless in the Last Year: No Family History[6] REVIEW OF SYSTEMS: The chart was reviewed. Review of Systems Unable to perform ROS: Mental status change LABS: Lab Results Component Value Date CREATININE 2.98 (H) 11/01/2024 Lab Results Component Value Date WBC 20.4 (H) 11/01/2024 HGB 8.0 (L) 11/01/2024 HCT 25.2 (L) 11/01/2024 MCV 91.6 11/01/2024 PLT 557 (H) 11/01/2024 Lab Results Component Value Date INR 1.0 10/09/2024 INR 1.2 (H) 09/17/2024 INR 1.3 (H) 09/16/2024 PROTIME 11.1 10/09/2024 PROTIME 12.3 (H) 09/17/2024 PROTIME 13.5 (H) 09/16/2024 PHYSICAL EXAM: Vitals: 10/31/24 2237 BP: 155/96 Pulse: 117 Resp: 16 Temp: 37.6 C (99.7 F) SpO2: 97% Vascular Physical Exam Constitutional: General: She is awake. Appearance: Normal appearance. HENT: Head: Normocephalic and atraumatic. Cardiovascular: Rate and Rhythm: Normal rate. Pulses: Radial pulses are 2+ on the right side and 2+ on the left side. Brachial pulses are 2+ on the right side and 2+ on the left side. Pulmonary: Effort: No respiratory distress. Abdominal: General: Abdomen is flat. Tenderness: There is no abdominal tenderness. Musculoskeletal: Right Leg: No edema. Left Leg: No edema. Right lower leg: No edema. Left lower leg: No edema. Comments: L AV fistula is swollen, appears to have a sore on it, no thrill or bruit appreciated Feet: Right foot: Skin integrity: No ulcer. Toenail Condition: Right toenails are normal. Left foot: Toenail Condition: Left toenails are normal. Skin: General: Skin is warm and dry. Capillary Refill: Capillary refill takes less than 2 seconds. Neurological: General: No focal deficit present. Sensory: Sensation is intact. LABS: Lab Results Component Value Date WBC 20.4 (H) 11/01/2024 HGB 8.0 (L) 11/01/2024 HCT 25.2 (L) 11/01/2024 PLT 557 (H) 11/01/2024 PROTIME 11.1 10/09/2024 INR 1.0 10/09/2024 K 4.6 11/01/2024 BUN 14 11/01/2024 CREATININE 2.98 (H) 11/01/2024 VASCULAR TESTING: N/a [1] Past Medical History: Diagnosis Date Chronic kidney disease (CKD) Hemodialysis patient (CMS/HCC) (HCC) Wednesday, , Wednesday History of blood transfusion 02/27/2022 Hypertension Seizure (HCC) Developed seizure-like activity on 02/24 during hospital admission [2] Past Surgical History: Procedure Laterality Date AV FISTULA PLACEMENT Left 08/07/2022 COLONOSCOPY N/A 01/25/2024 Performed by Chrissy Gilman MD at [facility] ENDOSCOPY IR CVC TUNNELED DIALYSIS CATHETER PLACEMENT 02/27/2022 IR CVC TUNNELED CATHETER PLACEMENT 02/27/2022 Candis Andrade MD [facility] SPECIAL PROCEDURES IR EMBOLIZATION 01/24/2024 IR EMBOLIZATION 01/24/2024 Jovan Glynn MD [facility] SPECIAL PROCEDURES [3] [4] PRN medications: acetaminophen OR acetaminophen, acetaminophen, collagenase, dextrose, dextrose, glucagon (rDNA), glucose, heparin, heparin, heparin, heparin, hydrALAZINE, labetalol, melatonin, naloxone, ondansetron ODT OR ondansetron, oxyCODONE, polyethylene glycol (PEG) 3350, sodium chloride, sodium chloride, sodium chloride, sodium chloride 0.9%, sodium chloride 0.9% [5] amLODIPine, 5 mg, Oral, Daily chlorhexidine, , Topical, Daily collagenase, , Topical, Daily heparin, 5,000 Units, SubCUTAneous, 2 times per day levETIRAcetam, 500 mg, IntraVENous, Daily [Held by provider] sevelamer carbonate, 800 mg, Oral, TID WC sodium chloride 0.9%, 5-40 mL, IntraVENous, 2 times per day sodium chloride 0.9%, 5-40 mL, IntraCATHeter, q8h sulfamethoxazole-trimethoprim, 1 tablet, Oral, Daily [6] Family History Problem Relation Name Age of Onset Dementia Mother Stroke Father Prostate cancer Brother 69 Breast cancer Cousin 32 Stomach cancer Mother's Sister 70 Cosigned by Raffy Fernandez MD at 11/01/2024 2:31 PM EDT Associated attestation - Raffy Fernandez MD - 11/01/2024 2:31 PM EDT I saw and evaluated the patient. I agree with the findings and plan of care as documented in the resident s note unless otherwise noted below. Left upper extremity AVG has fluid around arterial anastomosis at area of ulceration. This is concerning for ongoing infection and therefore the graft needs to be removed. It is currently thrombosed. Plan for AVG explant tomorrow morning. The plan and rational for removal was discussed with the patient bedside as well as her brother/GENET Hess via telephone. The procedure has been described in detail. They have elected for us to proceed. NPO at midnight. OK for sips of water for medications only if needed. Associated Order(s): PHARMACY TO DOSE VANCO Vancomycin therapy has been discontinued by Dr More on 10-26. Thank you for the consult. Pharmacy signing off for vancomycin dosing. Ronald Gould RPh, Date: 10/26/24 Time: 4:06 PM Associated Order(s): IP CONSULT TO NEPHROLOGY Apoorva Gonzalez is an 74 y.o. female. Reason for Consult Chief Complaint Patient presents with Altered Mental Status Pt came from shelter. Squad was called for weakness and altered mental status. Pt is not diabetic. Gcs 14 due to confusion a&ox2. Pt bgl was 99. Pt fistula is in left arm . History of Present Illness Recent course is as follows per recent documentation: Hospitalized at [facility] 08/14/2024 with sudden cardiac arrest thought to be due to complications from sepsis due to a right thigh and anterior hip abscess. She underwent I&D in the OR and was treated with a 7-day course of IV Zosyn, and was discharged to a halfway facility on 08/24/2024 with a wound VAC. She re-presented to [facility] on 08/26/2024 for increased pain of her right thigh, found to have an expanding hematoma and required 2 units of PRBCs, she was transferred to for consideration of IR embolization but eventually it was stable and did not require this procedure. Last month was admitted to [facility] with COVID, pneumonia, a.fib. She was discharged from [facility] less than 2 weeks ago. Came over to [facility] yesterday with sepsis: high fever, low BP and tachycardia Sometime in between 10/12 and now she ended up with clotted AVF and TDC - I cannot find any record of it and pt is unable to provide hidtory Medical history review: Medical History[1] Surgical history review: Surgical History[2] Current medications review: * Intraprocedure medication information is unavailable because the case start and end events have not been set * Allergies review: Patient has no known allergies. Family history review: Family History[3] Social history review: Social History[4] Vascular Access: L TDC Review of Systems: Able due to AMS Physical Exam Somnolent, moaning Hot to touch Shivering Chest is CTA anteriorly Temp: [36.7 C (98 F)-38.1 C (100.6 F)] 38.1 C (100.6 F) Heart Rate: [78-127] 115 Resp: [15-25] 20 BP: (125-182)/(71-112) 169/81 Intake/Output this shift: No intake/output data recorded. Intake/Output last 3 shifts: I/O last 3 completed shifts: In: 100 (2.1 mL/kg) [IV Piggyback:100] Out: - (0 mL/kg) Weight: 48.3 kg Lab Results Review: Results from last 7 days Lab Units 10/23/24 0052 SODIUM mmol/L 134* POTASSIUM mmol/L 3.5 CHLORIDE mmol/L 95* CO2 mmol/L 27 BUN mg/dL 31* CREATININE mg/dL 5.78* CALCIUM mg/dL 7.9* MAGNESIUM mg/dL 1.8 HEMOGLOBIN g/dL 6.9* HEMATOCRIT % 21.6* WBC AUTO 10*3/uL 35.0* PLATELETS 10*3/uL 355 Assessment/Plan Problem list: Principal Problem: Sepsis, due to unspecified organism, unspecified whether acute organ dysfunction present (HCC) Orders Placed This Encounter Procedures Blood culture Site #1 - Suspected Infection Standing Status: Standing Number of Occurrences: 1 Stage of testing:: Initial Reason for testing:: Sepsis/Septic shock Blood culture Site #2 - Suspected Infection Standing Status: Standing Number of Occurrences: 1 Stage of testing:: Initial Reason for testing:: Sepsis/Septic shock Aerobic and Anaerobic Culture with Stain Standing Status: Standing Number of Occurrences: 1 Culture, Aerobic Bacteria with Gram Stain Standing Status: Standing Number of Occurrences: 1 Anaerobic culture Standing Status: Standing Number of Occurrences: 1 Respiratory Pathogens Panel by PCR Standing Status: Standing Number of Occurrences: 1 Blood culture Site #1 - Suspected Infection Please obtain blood cultures from tunnel dialysis - Dialysis nurse to perform and use this order Standing Status: Standing Number of Occurrences: 1 Stage of testing:: Initial Reason for testing:: Infected indwelling vascular catheter XR chest 1 view Standing Status: Standing Number of Occurrences: 1 IR nontunneled catheter placement Standing Status: Standing Number of Occurrences: 1 What type of catheter?: Central Line Lactic acid with reflex Standing Status: Standing Number of Occurrences: 1 Reflex Frequency:: Q4H Complete Urinalysis with reflex to Culture Standing Status: Standing Number of Occurrences: 1 Select Ordering Indication:: Fever CBC auto differential Standing Status: Standing Number of Occurrences: 1 Comprehensive metabolic panel Standing Status: Standing Number of Occurrences: 1 Serial Troponin, High Sensitivity Standing Status: Standing Number of Occurrences: 1 Troponin, High Sensitivity, Serial, Second Test Standing Status: Standing Number of Occurrences: 1 CBC auto differential Standing Status: Standing Number of Occurrences: 3 Comprehensive Metabolic Panel w/ Mg Reflex Standing Status: Standing Number of Occurrences: 3 Comprehensive metabolic panel Standing Status: Standing Number of Occurrences: 1 Man Differential Standing Status: Standing Number of Occurrences: 1 Magnesium Standing Status: Standing Number of Occurrences: 1 Vancomycin, random Pre-HD random level for vancomycin pulse dosing. Standing Status: Standing Number of Occurrences: 1 Type and Screen Standing Status: Standing Number of Occurrences: 1 Magnesium Standing Status: Standing Number of Occurrences: 3 Phosphorus Standing Status: Standing Number of Occurrences: 3 NPO diet with enteral medications Please do not give oral medications if she is not awake enough to take them Standing Status: Standing Number of Occurrences: 1 Medications?: with enteral medications Reason For Not Ordering Sepsis Fluid Bolus Standing Status: Standing Number of Occurrences: 1 Specify:: ESRD, concern for fluid overload, fluid shift, electrolytes Straight cath Standing Status: Standing Number of Occurrences: 1 Vital Signs Standing Status: Standing Number of Occurrences: 1 Notify patient's primary care provider of admission Standing Status: Standing Number of Occurrences: 1 Activity Up With Assistance; Up in Chair Standing Status: Standing Number of Occurrences: 1 Activity Level:: Up With Assistance Additional Activity:: Up in Chair Notify physician per STANDARD parameters Standing Status: Standing Number of Occurrences: 1 Intake and output Call for urine ouput less than 120ml in 4 hours Standing Status: Standing Number of Occurrences: 1 Daily weights Standing Status: Standing Number of Occurrences: 1 Central line catheter care Standing Status: Standing Number of Occurrences: 1 OK to Use Line Hemodialysis Catheter; Tunneled; Double lumen Line to be accessed for dialysis purposes only by dialysis or trained home theatre technician for CRRT. Any other access must be ordered and approved by nephrology. Line to be accessed for dialysis purposes only by dialysis or trained home theatre technician for CRRT. Any other access must be ordered and approved by nephrology. Standing Status: Standing Number of Occurrences: 1 Central Line Type: Hemodialysis Catheter Tunnel Type: Tunneled Hemodialysis Catheter Lumen: Double lumen Vital Signs Standing Status: Standing Number of Occurrences: 1 Weigh patient Standing Status: Standing Number of Occurrences: 1 Telemetry monitoring for Arrhythmia Management Standing Status: Standing Number of Occurrences: 1 Indication for telemetry:: Arrhythmia Management Can the patient be off telemetry for activities (including therapy, ambulation, off-unit procedures, showers, bathroom, transport)?: Yes Do NOT remove Telemetry monitoring without order from Provider Standing Status: Standing Number of Occurrences: 1 OK to remove per nurse driven telemetry protocol- Begin review at 48 hours Standing Status: Standing Number of Occurrences: 1 OK to Use Line Central Venous Catheter; Non-tunneled; Triple lumen Standing Status: Standing Number of Occurrences: 1 Central Line Type: Central Venous Catheter Tunnel Type: Non-tunneled CVC Lumen: Triple lumen Change dressing Nursing staff to perform dressing change: Sacrum extending to left buttock: Pressure Injury Unstageable (POA) -cleanse with NS, apply santyl followed by xeroform, cover with dry clean dressing daily and PRN. -ICU bed -waffle chair cushion -Q2hr/PRN turns -glide sheets for T&R -continence checks Q1-2 Hrs/PRN Standing Status: Standing Number of Occurrences: 1 HYPOGLYCEMIA TREATMENT: blood glucose less than 50 mg/dL and patient ALERT and TOLERATING PO Give 4 ounces juice or regular soda or 1 tube glucose gel. Repeat blood glucose in 15 minutes. If blood glucose is less than 70 mg/dL, repeat treatment and recheck blood glucose in 15 minutes x2. If blood glucose remains less than 70 mg/dL, notify provider. Standing Status: Standing Number of Occurrences: [id number] HYPOGLYCEMIA TREATMENT: blood glucose less than 70 mg/dL and patient NOT ALERT or NPO Give dextrose 50% intravenous. If patient does not respond within 5 minutes, repeat dose x1. Start D5W at 100 mL/hour until ordering provider can be reached. Repeat blood glucose in 15 minutes. If blood glucose is less than 70 mg/dL, repeat treatment and recheck blood glucose in 15 minutes x2. Notify provider. If no intravenous access, administer glucagon 1 mg. After administration, attempt intravenous access and start D5W at 100 mL/hr. Repeat blood glucose in 15 minutes x2 and notify provider. Standing Status: Standing Number of Occurrences: [id number] Full code Standing Status: Standing Number of Occurrences: 1 Pharmacy to dose Vancomycin Standing Status: Standing Number of Occurrences: 1 Dosing of this medication varies based on severity of illness. Does this patient have sepsis or concern for sepsis (probable or documented infection plus systemic manifestations of infection)?: Yes Suspected Indication (Select all that apply): Sepsis of Unknown Etiology Inpatient consult to Case Management Standing Status: Standing Number of Occurrences: 1 Reason for Consult?: discharge back to facility Inpatient consult to Wound Care--Pressure Injury; coccyx and buttock Standing Status: Standing Number of Occurrences: 1 Consulting Group: [facility] [[id number]] Reason for Consult:: Pressure Injury Wound location: coccyx and buttock Pharmacy to dose Vancomycin Standing Status: Standing Number of Occurrences: 1 Dosing of this medication varies based on severity of illness. Does this patient have sepsis or concern for sepsis (probable or documented infection plus systemic manifestations of infection)?: Yes Suspected Indication (Select all that apply): Sepsis of Unknown Etiology Inpatient consult to Infectious Diseases--[facility] [place]FECTIOUS DISEASE; Sepsis - with complex history previous bacteremia with cardiac arrest Standing Status: Standing Number of Occurrences: 1 Consulting Group: [facility] – [place] INFECTIOUS DISEASE [[id number]] Reason for Consult?: Sepsis - with complex history previous bacteremia with cardiac arrest Level of Consultation: Consultation and Management Did you contact the php consultant?: No When to contact consulting provider: Tomorrow Inpatient consult to Wound Prevention Standing Status: Standing Number of Occurrences: 1 Reason for Consult:: Arnol score, Prevention Inpatient consult to Palliative Care Standing Status: Standing Number of Occurrences: 1 Consulting Group: [facility] [place] PALLIATIVE CARE [[id number]] Reason for consult?: Assistance with clarification of goals of care Inpatient consult to Nephrology--[facility]; Dialysis Standing Status: Standing Number of Occurrences: 1 Consulting Group: [facility] [[id number]] Reason for Consult?: Dialysis Level of Consultation: Consultation and Management Did you contact the php consultant?: No When to contact consulting provider: Today PT eval and treat Standing Status: Standing Number of Occurrences: 1 Weight bearing restriction?: No Reason for PT:: Eval & Treat if Arnol activity/mobility < or equal to 2 Initiate Oxygen Therapy Protocol Initiate oxygen therapy if the patient has 1) SpO2 is less than 90%, 2) Cyanosis, Chest Pain, Dyspnea, or Altered level of consciousness AND SpO2 checked and it is less than 90%, or 3) patient on Home oxygen. To initiate oxygen therapy: nurse or RT enters Nasal cannula oxygen order using Per Protocol without Cosign order mode (if indication Home Oxygen then change L/min to same amount at home and change Wean to Room Air to No). Notify provider if initiate oxygen therapy unless already on Home Oxygen. Standing Status: Standing Number of Occurrences: [id number] CAREER RESOURCE SPECIALIST eval and treat Standing Status: Standing Number of Occurrences: 1 Reason for CAREER RESOURCE SPECIALIST Consult?: Dysphagia (bedside swallow evaluation) CAREER RESOURCE SPECIALIST eval and treat Standing Status: Standing Number of Occurrences: 1 Reason for CAREER RESOURCE SPECIALIST Consult?: Dysphagia (bedside swallow evaluation) POCT glucose meter Standing Status: Standing Number of Occurrences: 1 ECG 12 lead Standing Status: Standing Number of Occurrences: 1 Reason for exam:: Syncope/Collapse Admit to inpatient Standing Status: Standing Number of Occurrences: 1 Estimated Span of Midnights: Estimated stay of 2 midnights or greater Bed request comments: Dialysis patient - needs private room Transfer patient to new unit Standing Status: Standing Number of Occurrences: 1 Bed request comments: ICU bed Skin care precautions Standing Status: Standing Number of Occurrences: 1 Diagnosis: The primary encounter diagnosis was Sepsis, due to unspecified organism, unspecified whether acute organ dysfunction present (HCC). Diagnoses of Altered mental status, unspecified altered mental status type and Buttock wound, left, initial encounter were also pertinent to this visit. ESRD Sepsis Low K No acidosis No fluid overload Plan No dialysis needed today Will dialyze tomorrow, see orders [1] Past Medical History: Diagnosis Date Chronic kidney disease (CKD) Hemodialysis patient (CMS/HCC) (HCC) Wednesday, , Wednesday History of blood transfusion 02/27/2022 Hypertension Seizure ([facility]) Developed seizure-like activity on 02/24 during hospital admission [2] Past Surgical History: Procedure Laterality Date AV FISTULA PLACEMENT Left 08/07/2022 COLONOSCOPY N/A 01/25/2024 Performed by Chrissy Gilman MD at [facility] ENDOSCOPY IR CVC TUNNELED DIALYSIS CATHETER PLACEMENT 02/27/2022 IR CVC TUNNELED CATHETER PLACEMENT 02/27/2022 Candis Andrade MD [facility] SPECIAL PROCEDURES IR EMBOLIZATION 01/24/2024 IR EMBOLIZATION 01/24/2024 Jovan Glynn MD [facility] SPECIAL PROCEDURES [3] Family History Problem Relation Name Age of Onset Dementia Mother Stroke Father Prostate cancer Brother 69 Breast cancer Cousin 32 Stomach cancer Mother's Sister 70 [4] Social History Tobacco Use Smoking status: Never Smokeless tobacco: Never Vaping Use Vaping status: Never Used Substance Use Topics Alcohol use: Yes Alcohol/week: 2.0 standard drinks of alcohol Types: 2 Glasses of wine per week Comment: weekly Drug use: Never Associated Order(s): IP CONSULT TO PALLIATIVE CARE Images from the original note were not included. Palliative Care Initial Consult Chief Complaint: Apoorva Gonzalez is a 74 y.o. female with chief complaint of fever. Palliative Care is actively following. Assessment/Plan Goals of care Apoorva Gonzalez lacks capacity for medical decision-making due to encephalopathy. -legal surrogate decision maker is MESHAOA, Brother Deshawn Crystal ( ) Alternate is s/o Edward Ruggiero [phone]) -see subjective for details of conversation -goals of care include: 1) continue infectious workup 2)maintain full code 3)continue goals of care conversations -Palliative care saw last admission while at [facility]-->spouse has , daughter has . Noted that emergency contacts appear to be grandsons-->Mayur and Sharad (both above 18 yo), Brother-->Deshawn Crystal and s/o Edward Ruggiero. -HCPOA documented to have been filled out at facility recently-->copy was emailed to me today from [facility]. Faxed to medical records to be scanned into chart. Sepsis -Recent admission at [facility] for sepsis, Cdiff. -Wound cultures PENDING. -Blood cultures PENDING. -ATBX in place now below. -Febrile Tmax 101.1F on arrival. -Meropenem 1,000 mg Q12. -Vancomycin 500 mg x1, pharmacy to dose. -Viral panel negative. -CXR 10-22-24-->Bibasilar infiltrates and effusions. Mild to moderate interstitial and central pulmonary vasculature. -ICU managing. -ID following-->rotated atbx, await cultures, r/o infected iHD catheter. -Monitor. Acute encephalopathy -Ongoing. -No CTH done this admission. Low threshold for imaging pending mentation does not improve. -Monitor. ?Dysphagia -Continue to monitor swallowing abilities, no dysphagia noted per discussion with brother today re: baseline function. -CAREER RESOURCE SPECIALIST consulted, unable to address today 2/2 mentation continuing to be poor. -Monitor, remains NPO for now with encephalopathy. Debility Wounds -ongoing, 2/2 chronically ill and long hospitalizations recently. -This is her 5th admission over the last year. -Noted WCB at baseline at facility. -PT/OT when able. -Likely return to facility at [place] pending clinical course. -Monitor. Hx Seizures -Keppra 500 mg IVPB ordered. -Monitor. Hx ESRD -Dialysis -Noted that tunneled like previously inserted last admission ([facility]-->10-13) -Nephrology consulted -Creatinine Cl 6.5 mL/min -Avoid nephrotoxic medications. -Renally dose medications -Last dialysis yesterday per brother. Hx CP arrest --->while at [facility]. Palliative Care Encounter -Code Status: Full Code - will continue to follow for ongoing monitoring of progression of Dyspnea and Pain as well as for appropriateness for hospice care due to ESRD PC Time Stamp: Total of 70 minutes spent on this encounter including Chart review, Patient visit and exam, Documentation in EHR, Care coordination, Communicating with primary attending or other consultants, Obtaining and/or reviewing separately obtained history, and Counseling and educating patient/family/caregiver. Discharge planning: Not ready for discharge due to ongoing medical work-up/critical illness Patient meets criteria for general inpatient hospice care: No Palliative Care IDT members involved: None Discussed the plan of care with the other interdisciplinary team (IDT) members of the Palliative Care and Hospice teams and Patient, Family, and Primary Attending. Subjective: Subjective/Events Apoorva Gonzalez is a 74 y.o. female with PMH of HTN, CKD, seizures, CP arrest. She presents from facility with mentation alteration, fever, tachycardia, lethargy. Noted last iHD was day prior per brother. She does receive dialysis 5 times a week. She was hypotensive, tachycardic, fever up to 101 F. Increased WBC. CXR notes bibasilar effusions/infiltrates. Central pulmonary vascular congestion c/w CHF and fluid overload. She had a recent long admission at [facility] for about a month, COVID-19, spesis. Cdiff colitis as well during that admission. She was admitted to medical floor for further workup and monitoring. She was tx to ICU for worsening mentation this morning. She remains lethargic, infectious workup in place. Just returned from IR for tunneled CVC. Continued on ATBX and pending blood cultures. Palliative consulted for goals of care. She is seen today in bed. Asleep. Confused. NAD. FLACC 0/10 Management per ICU now with tx this morning. Continue to follow. Discussion via phone with patient's brother. Unable to participate in ROS 2/2 AMS. Pain Assessment Unable due to Encephalopathy Advance Care Planning Advanced Care Planning Conversation Pertinent Diagnosis/es: Sepsis, Palliative Care encounter The patient and/or surrogate consented to a voluntary Advance Care Planning conversation. Apoorva Gonzalez lacks capacity for medical decision-making due to encephalopathy. Individuals present included: Sibling(s) (brother, Deshawn). Summary of the conversation: As per care coordination note from today's date. Reviewed with patient and family that, given multiple medical co-morbidities in the setting of advanced age, if patient were to have cardiac arrest the chances of surviving CPR would be low. Reviewed that if survived cardiac arrest, patient would likely not return to prior level of function-->remains full code at this time. Outcome of the conversation: Decision to remain full code and continue all aggressive care Advance Directives were not explained. Conversation focused on goals, values and medical decision-making. This is the first significant conversation I have had with this patient about advanced care planning. I spent 30 minutes providing separately identifiable ACP services with the patient and/or surrogate decision maker in a voluntary conversation discussing the patient's goals, values, and preferences as detailed in the note above. Lilliana Rae, RADIATION ONCOLOGIST - AGENCY TRAINER Palliative Care Assessments: Goals of care: Continue Current Management, Live Longer, extend life as much as possible, Strengthening Relationships, and Support for Family/Caregiver Advanced Directives: Health Care Power of Rotary Helper, DNR Functional Assessment: PPS 50% mainly sit/lie; can't do any work/extensive disease; considerable assistance; normal or reduced intake; full LOC or confusion Prognosis: depends upon goals of care Spiritual Assessment: No spiritual distress identified Bereavement and Grief: To Be Determined PDMP/OARRS Reviewed: Yes-reviewed Social history: Marital status: Children: one child, . Living status: shelter Work history: n/a status: No Episcopal erma: None ROS: See palliative care ROS/ESAS below; Detail ROS unable to be obtained due to patient's mental status Chester Symptom Assessment Score Chester Score Pain Score (if non-verbal, add .FLACC below) 0 Tiredness Score 10 Nausea Score 0 Depression Score 0 Anxiety Score 0 Drowsiness Score 10 Anorexia Score (0= eating well, 10= not eating) 10 Wellbeing Score (10= worst sense of well-being) 7 Constipation 0 Dyspnea Score (0= no shortness of breath) 0 FLACC Scale (For Pain Assessment of the Non-Verbal Patient) Face: 0- no particular expression Legs: 0- normal position or relaxed Activity: 0-lying quietly, moves easily Cry: 0-no cry Consolability:0-content, relaxed Total Score: 0 Family Meeting: Participants: Deshawn arredondo Family meeting was held to discuss:Diagnosis and Prognosis, Goals of Care, Treatment Options, Symptom Management, Advanced Care Planning, Prior Expressed Wishes, and Discharge Plan Medical History[1] Surgical History[2] Family History[3] Unable to obtain family history due to N/A- family history available Allergies[4] Objective: BP 138/83 (BP Location: Right arm, Patient Position: Lying) Pulse 118 Temp (!) 38.1 C (100.5 F) (Oral) Resp 20 Wt 106 lb 7.7 oz (48.3 kg) SpO2 95% BMI 18.28 kg/m Physical Exam Vitals and nursing note reviewed. Constitutional: General: She is sleeping. She is not in acute distress. Appearance: She is underweight. She is ill-appearing. Comments: Chronically ill appearing woman, lying in bed. Sleeping. NAD. HENT: Head: Normocephalic. Nose: Nose normal. Eyes: General: Right eye: No discharge. Left eye: No discharge. Cardiovascular: Rate and Rhythm: Normal rate. Pulses: Normal pulses. Pulmonary: Effort: Pulmonary effort is normal. Abdominal: General: There is no distension. Tenderness: There is no abdominal tenderness. Musculoskeletal: Right lower leg: No edema. Left lower leg: No edema. Skin: General: Skin is warm and dry. Capillary Refill: Capillary refill takes less than 2 seconds. Neurological: Mental Status: She is disoriented. Medication information: 24-hour PRN meds received: none in 24 hours. Results/Verification of Data Review Objective data reviewed (must include dates reviewed for labs, imaging reports and other specialty notes): BMP, CBC 10/23/24 Lactic Acid 10/23/24 Viral panel 10/23/24 UA 10/23/24 Aerobic culture 10/23/24 Blood cultures 10/23/24 Data in Support of Terminal Illness: Is patient hospice appropriate? Eligible, but not consistent with GOC at this time Transition Note Initiated: yes Lilliana Rae, [facility] - [facility] [1] Past Medical History: Diagnosis Date Chronic kidney disease (CKD) Hemodialysis patient (CMS/HCC) (HCC) Wednesday, , Wednesday History of blood transfusion 02/27/2022 Hypertension Seizure (HCC) Developed seizure-like activity on 02/24 during hospital admission [2] Past Surgical History: Procedure Laterality Date AV FISTULA PLACEMENT Left 08/07/2022 COLONOSCOPY N/A 01/25/2024 Performed by Chrissy Gilman MD at [facility] ENDOSCOPY IR CVC TUNNELED DIALYSIS CATHETER PLACEMENT 02/27/2022 IR CVC TUNNELED CATHETER PLACEMENT 02/27/2022 Candis Andrade MD [facility] SPECIAL PROCEDURES IR EMBOLIZATION 01/24/2024 IR EMBOLIZATION 01/24/2024 Jovan Glynn MD [facility] SPECIAL PROCEDURES [3] Family History Problem Relation Name Age of Onset Dementia Mother Stroke Father Prostate cancer Brother 69 Breast cancer Cousin 32 Stomach cancer Mother's Sister 70 [4] No Known Allergies Cosigned by Opal Boyd MD at 10/23/2024 4:47 PM EDT Images from the original note were not included. Internal Medicine: MICU Initial Consult Name: Apoorva Gonzalez : 1950(74 y.o.) Date: 10/23/24 Attending: Dr. Thomas Subjective: Chief Complaint: sepsis HPI: Ms Gonzalez is a 74 year old female who presented 10/22 from [facility] due to altered mental status. In the ED was noted to be febrile, tachycardic, tachypneic and with elevated WBC. Received IV fluid bolus, antibiotics. Admitted to [facility] for further work up. This morning critical care consulted as patient remained febrile, tachycardic and tachypneic. WBC count also continuing to increase with worsening anemia. On examination patient is sleepy, awakening only briefly to answer questions before falling back asleep. She is oriented to self only. Medical History[1] Surgical History[2] Family History[3] Social History Socioeconomic History Marital status: Spouse name: Not on file Number of children: Not on file Years of education: Not on file Highest education level: Not on file Occupational History Not on file Tobacco Use Smoking status: Never Smokeless tobacco: Never Vaping Use Vaping status: Never Used Substance and Sexual Activity Alcohol use: Yes Alcohol/week: 2.0 standard drinks of alcohol Types: 2 Glasses of wine per week Comment: weekly Drug use: Never Sexual activity: Not on file Other Topics Concern Not on file Social History Narrative Not on file Social Drivers of Health Financial Resource Strain: Patient Unable To Answer (10/23/2024) Overall Financial Resource Strain (CARDIA) Difficulty of Paying Living Expenses: Patient unable to answer Food Insecurity: No Food Insecurity (10/23/2024) Hunger Vital Sign Worried About Running Out of Food in the Last Year: Never true Ran Out of Food in the Last Year: Never true Transportation Needs: No Transportation Needs (10/23/2024) PRAPARE - Transportation Lack of Transportation (Medical): No Lack of Transportation (Non-Medical): No Physical Activity: Not on file Stress: Not on file Social Connections: Not on file Intimate Partner Violence: Not At Risk (08/31/2024) Received from [facility] Humiliation, Afraid, Rape, and Kick questionnaire Fear of Current or Ex-Partner: No Emotionally Abused: No Physically Abused: No Sexually Abused: No Housing Stability: Low Risk (10/23/2024) Housing Stability Vital Sign Unable to Pay for Housing in the Last Year: No Number of Times Moved in the Last Year: 0 Homeless in the Last Year: No Allergies[4] Prior to Admission medications Medication Sig Start Date End Date Taking? Authorizing Provider acetaminophen (Tylenol) 325 MG tablet Take 650 mg by mouth every 6 hours as needed. 08/24/24 Yes Historical Provider, atorvastatin (Lipitor) 40 MG tablet Take 1 tablet (40 mg) by mouth Nightly. 03/02/22 10/22/24 Yes Evan Joshua, RADIATION ONCOLOGIST - AGENCY TRAINER B complex-vitamin C-folic acid (Nephro-Coleen) 0.8 MG tablet Take 0.8 mg by mouth daily. Yes Historical Provider, cholecalciferol (Vitamin D-3) 125 MCG (5000 UT) capsule Take 5,000 Units by mouth daily. Yes Historical Provider, cyclobenzaprine (Flexeril) 5 MG tablet Take 1 tablet (5 mg) by mouth 3 times daily as needed for muscle spasms for up to 10 days. 10/12/24 10/22/24 Yes John Mayes, levETIRAcetam (Keppra) 500 MG tablet Take 1 tablet (500 mg) by mouth daily. 03/02/22 10/22/24 Yes Evan Joshua, RADIATION ONCOLOGIST - AGENCY TRAINER meclizine (Antivert) 25 MG tablet Take 1 tablet (25 mg) by mouth 3 times daily as needed for dizziness for up to 10 doses. 06/29/24 Yes Robson Syed, sevelamer (Renagel) 800 MG tablet Take 800 mg by mouth 3 times daily (with meals). Swallow tablet whole; do not crush, break, or chew. Yes Historical Provider, Thiamine HCl (vitamin B-1) 250 MG tablet Take 250 mg by mouth daily. Yes Historical Provider, calcium acetate (Phoslo) 667 MG tablet Take 1 tablet by mouth in the morning and 1 tablet at noon and 1 tablet in the evening. Take with meals. 07/01/22 Historical Provider, cefdinir (Omnicef) 300 MG capsule Take 1 capsule (300 mg) by mouth daily for 8 days. 10/12/24 10/20/24 John Mayes DO linezolid (Zyvox) 600 MG tablet Take 1 tablet (600 mg) by mouth every 12 hours for 15 doses. 10/12/24 10/20/24 John Mayes DO magnesium hydroxide (Milk of Magnesia) 2400 MG/10ML suspension suspension Take 30 mL by mouth Daily as needed for constipation. Historical Provider, Objective: Oxygen Delivery: VITALS: BP 138/83 (BP Location: Right arm, Patient Position: Lying) Pulse 118 Temp (!) 38.1 C (100.5 F) (Oral) Resp 20 Wt 48.3 kg (106 lb 7.7 oz) SpO2 95% BMI 18.28 kg/m CURRENT PULSE OXIMETRY: SpO2: 95 % Review of Systems Unable to perform ROS: Mental status change Constitutional: General Appearance [x]WDWN []Obese []Cachectic []Thin []Ill Eyes: Inspection of Pupils/Irises Pupils round and react: [x]Yes []No Sclera: []Icteric [x]Non-Icteric Inspection of Conjunctiva/Lids Conjunctiva: []Injected [x]Non-Injected Lids: [x]Intact []Lesion Present ENT/Mouth: External Inspection of ears/nose [x] Normal [] Scar/Lesion/Mass Inspection of teeth/lips/gums Dentition: [][place] Teeth []Dentures Lips/Gums: [x]Intact []Lesion Present Mucosa: [][place] []Moist []Dry Neck: External Appearance Overall Appearance: [x]Normal []Lesion/Mass/Crepitus Present Trachea midline: [x]Yes []No Thyroid []Normal []Enlarged []Tender []Mass []Absent Respiratory: Respiratory effort []Labored [x]Non-Labored [] Mechanically-Ventilated Auscultation [x]Clear []Crackles []Wheezes [][place] Cardiovascular: Auscultation Rate: []Regular []Irregular [x]Tachycardia []Bradycardia Rhythm: [x]Regular []Irregular Murmur: []Present [x]Absent Extremities Peripheral Edema: []Present [x]Absent Varicosities: []Present [x]Absent Gastrointestinal: Abdomen Palpation: [x]Soft []Firm []Tender [x]Non-Tender []Distended [x]Non-distended Mass: []Present []Absent Bowel Sounds: [x]Present []Absent Hernia: []Present []Absent Liver/Spleen: []Hepatosplenomegaly []Organomegaly Absent Musculoskeletal: Inspection of Digits and Nails Cyanosis: []Present [x]Absent Clubbing: []Present [x]Absent Ischemia: []Present [x]Absent Infection: []Present [x]Absent Extremities ANDERSON Equally: Except ([]RUE []RLE []LUE []LLE) Strength/Tone: Intact and Normal ([]RUE []RLE []LUE []LLE) Skin: Inspection [x]Normal []Rash []Lesion []Ulcer Palpation [x]Warm []Cool [x]Dry []Clammy []Nodules []Induration []Skin-tightening Cap-Refill: [] <3 sec [] >3 seconds (delayed) Neurologic: GCS EYE: 4 - Opens spontaneously GCS MOTOR: 5 - Localizes to pain (purposeful movements to painful stimulus) GCS VERBAL: 4 - Confused Total GCS: 13 [] Sensation grossly intact Psych: Mental Status Alert: [x]Yes [] No Oriented: []x0 []X1 []X2 []x3 Mood/Affect []Normal []Flat []Agitated []Depressed []Anxious []Calm []Sedated [x]NAD [facility] within last 24 hours- BMP: Recent Labs 10/22/24 1411 10/23/24 0052 NA 135* 134* K 3.1* 3.5 CL 93* 95* CO2 26 27 BUN 28* 31* CREATININE 5.36* 5.78* CALCIUM 8.2* 7.9* MG -- 1.8 LFTs: Recent Labs 10/22/24 1411 10/22/24 1451 10/23/24 0052 AST 37* -- 34* ALT <6 -- <6 PROT 6.1* -- 6.0* ALBUMIN 1.4* -- 1.4* BILITOT 0.6 -- 0.7 BILIRUBINU -- Negative -- ALKPHOS 161* -- 162* Glucose: Recent Labs 10/22/24 1301 10/22/24 1411 10/23/24 0052 GLUCOSE -- 85 72* POCGLU 99 -- -- Procal: No results for input(s): PROCAL in the last 72 hours. CBC: Recent Labs 10/22/24 1411 10/23/24 0052 WBC 20.2* 35.0* HGB 7.2* 6.9* HCT 22.2* 21.6* PLT 363 355 MCV 91.0 91.9 RDW 15.3* 15.5* ABGs: No results for input(s): PHART, WAQ6YEH, PO2ART, HFG8JLV, SO2ART, N7PCNOYK in the last 72 hours. Lactic Acid: Recent Labs 10/22/24 1411 LACTATE 1.5 INR: No results for input(s): INR in the last 72 hours. Cardiac Injury Profile: No results for input(s): CKTOTAL, CKMB, TROPONINI in the last 72 hours. Labs in Last 3 months: Lab Results Component Value Date TSH 3.30 09/14/2024 INR 1.0 10/09/2024 Microbiology- Urine Cx: No results found for: URINECX Blood Cx: Lab Results Component Value Date BLOODCX Blood culture incubation started 10/22/2024 Sputum Cx: Lab Results Component Value Date RESPCULT 10/05/2024 Culture canceled due to poor specimen quality. Recollect if clinically indicated. Gram Stain: Lab Results Component Value Date LABGRAM (A) 10/22/2024 Rare Polymorphonuclear leukocytes per low power field LABGRAM Many Gram negative bacilli (A) 10/22/2024 PNA PCR: Lab Results Component Value Date HUMANMETAPNE Not Detected 10/22/2024 COVID19: No results found for: COVID19 Legionella Ag: Lab Results Component Value Date LEGIONELLAPN Not Detected 09/26/2024 Strep Ag: No results for input(s): STREPPNEUMO in the last 72 hours. Imaging- No new imaging to review Assessment and Plan: Principal Problem: Sepsis, due to unspecified organism, unspecified whether acute organ dysfunction present (HCC) Assessment/Plan: Severe sepsis ESRD on HD TTS Acute on chronic normocytic anemia Seizure disorder, on Keppra Hypertension Hyperlipidemia Debility Severe malnutrition -Transfer to MICU -Infectious work up initiated, continue broad spectrum antibiotics -During last admission there was concern for infection of AV graft. Cultures were obtained and negative, however, patient had already received several days of broad spectrum antibiotics. -Infectious disease consulted, will appreciate recommendations -CVC placement per IR ordered d/t lack of PIV access -Order type and screen -Hypoglycemia protocol GI Prophylaxis: none indicated DVT Prophylaxis: Heparin subcutaneous BMI Classification: Body mass index is 18.28 kg/m . underweight BMI <18.5 Disposition: Remain in ICU Status Critical Care Time: 42 minutes Total critical care time caring for this patient with life threatening, unstable organ failure, including direct patient contact, management of life support systems, review of data including imaging and labs, discussions with other team members and physicians, excluding procedures. [1] Past Medical History: Diagnosis Date Chronic kidney disease (CKD) Hemodialysis patient (CMS/HCC) (HCC) Wednesday, , Wednesday History of blood transfusion 02/27/2022 Hypertension Seizure ([facility]) Developed seizure-like activity on 02/24 during hospital admission [2] Past Surgical History: Procedure Laterality Date AV FISTULA PLACEMENT Left 08/07/2022 COLONOSCOPY N/A 01/25/2024 Performed by Chrissy Gilman MD at [facility] ENDOSCOPY IR CVC TUNNELED DIALYSIS CATHETER PLACEMENT 02/27/2022 IR CVC TUNNELED CATHETER PLACEMENT 02/27/2022 Candis Andrade MD [facility] SPECIAL PROCEDURES IR EMBOLIZATION 01/24/2024 IR EMBOLIZATION 01/24/2024 Jovan Glynn MD [facility] SPECIAL PROCEDURES [3] Family History Problem Relation Name Age of Onset Dementia Mother Stroke Father Prostate cancer Brother 69 Breast cancer Cousin 32 Stomach cancer Mother's Sister 70 [4] No Known Allergies Associated Order(s): IP CONSULT TO INFECTIOUS DISEASES Images from the original note were not included. [facility] - Infectious Diseases Attending Consult Note Reason for Consult: Sepsis History of Present Illness: 74 y/o female was admitted on 10/22/24 from [facility] due to fever of 101.3 F increased weakness, and altered mental status; on presentation, she was diaphoretic, had stage III pressure ulcer on left buttock, tachycardic P 120, tachypneic R 22; labs showed leukocytosis 20.2k, CXR showed bibasilar infiltrates and effusions; pip/tazo and vancomycin were given. She was seen, found her sleeping and when awake would only moan and not respond to any questions, fever and tachycardia continued; she appeared lethargic and ill. She has had multiple recent hospital admissions; hospitalized from 08/14 - 08/24 at [facility] for cardiac arrest and sepsis and again from 08/26 to 09/06 at for sepsis believed to be due to an infected right thigh wound and hematoma; again at [facility] from 09/13 - 10/12/24 due to covid-19, electrolyte derangements, Enterobacter cloacae, Klebsiella pneumonia, Klebsiella oxytocin and VR Enterococcus which were treated for complete course, also, had C. difficile colitis which was treated, had tunneled HD catheter placed on discharge on 10/12. She has h/o ESRD on HD, seizure disorder and alcohol use. She was examined; notes, labs, imaging were reviewed; treatment plan was discussed, clinical informations were documented in electronic record. Past Medical History: Medical History[1] Past Surgical History: Surgical History[2] Current Medications: Current Medications[3] Allergies: Allergies[4] Social History: Social History Socioeconomic History Marital status: Spouse name: Not on file Number of children: Not on file Years of education: Not on file Highest education level: Not on file Occupational History Not on file Tobacco Use Smoking status: Never Smokeless tobacco: Never Vaping Use Vaping status: Never Used Substance and Sexual Activity Alcohol use: Yes Alcohol/week: 2.0 standard drinks of alcohol Types: 2 Glasses of wine per week Comment: weekly Drug use: Never Sexual activity: Not on file Other Topics Concern Not on file Social History Narrative Not on file Social Drivers of Health Financial Resource Strain: Patient Unable To Answer (10/23/2024) Overall Financial Resource Strain (CARDIA) Difficulty of Paying Living Expenses: Patient unable to answer Food Insecurity: No Food Insecurity (10/23/2024) Hunger Vital Sign Worried About Running Out of Food in the Last Year: Never true Ran Out of Food in the Last Year: Never true Transportation Needs: No Transportation Needs (10/23/2024) PRAPARE - Transportation Lack of Transportation (Medical): No Lack of Transportation (Non-Medical): No Physical Activity: Not on file Stress: Not on file Social Connections: Not on file Intimate Partner Violence: Not At Risk (08/31/2024) Received from [facility] Humiliation, Afraid, Rape, and Kick questionnaire Fear of Current or Ex-Partner: No Emotionally Abused: No Physically Abused: No Sexually Abused: No Housing Stability: Low Risk (10/23/2024) Housing Stability Vital Sign Unable to Pay for Housing in the Last Year: No Number of Times Moved in the Last Year: 0 Homeless in the Last Year: No Family History: Family History[5] Review of Systems: Review of Systems Constitutional: Positive for activity change, fatigue and fever. Skin: Positive for wound. Psychiatric/Behavioral: Positive for confusion. ROS was obtained from the chart, as the patient was lethargic and could not answer. Vitals: Patient Vitals for the past 24 hrs: BP Temp Temp src Pulse Resp SpO2 Weight 10/23/24 0741 -- (!) 38.1 C (100.5 F) Oral -- -- -- -- 10/23/24 0737 138/83 37.4 C (99.4 F) Temporal 118 20 95 % -- 10/23/24 0348 155/96 36.7 C (98 F) Temporal (!) 125 -- 97 % -- 10/23/24 0100 (!) 172/90 37.7 C (99.8 F) Temporal (!) 127 20 96 % -- 10/22/24 2030 (!) 182/112 37.1 C (98.8 F) Temporal (!) 121 20 96 % -- 10/22/24 1836 (!) 162/93 -- -- 106 18 98 % -- 10/22/24 1658 -- 37.7 C (99.9 F) Oral -- -- -- -- 10/22/24 1629 (!) 194/86 -- -- (!) 115 16 95 % -- 10/22/24 1508 -- -- -- -- -- -- 48.3 kg (106 lb 7.7 oz) 10/22/24 1400 (!) 204/100 (!) 38.3 C (101 F) Rectal (!) 118 14 94 % -- 10/22/24 1259 (!) 164/78 37.7 C (99.8 F) Axillary (!) 120 22 100 % -- Physical Exam: Physical Exam Vitals and nursing note reviewed. Constitutional: General: She is in acute distress. Appearance: She is ill-appearing. Comments: Lethargic - only moans does not give verbal replies HENT: Mouth/Throat: Pharynx: Oropharynx is clear. Eyes: Conjunctiva/sclera: Conjunctivae normal. Cardiovascular: Rate and Rhythm: tachycardia present. Heart sounds: No murmur heard. Pulmonary: Effort: Pulmonary effort is normal. No respiratory distress. Breath sounds: No wheezing or rales. Comments: Tachypnea Abdominal: General: Bowel sounds are normal. Tenderness: There is no abdominal tenderness. Comments: Left lower quadrant - mass under skin Musculoskeletal: General: Swelling, tenderness and signs of injury present. Comments: Sacral wound Skin: General: Skin is warm. Capillary Refill: Capillary refill takes less than 2 seconds. Comments: Stage III pressure ulcer on Lt buttock. Draining clear fluid. No surrounding erythema or crepitus Neurological: General: No focal deficit present. Mental Status: She is alert. She is disoriented. Motor: Weakness present. Labs: Recent Labs 10/22/24 1411 10/23/24 0052 NA 135* 134* K 3.1* 3.5 CL 93* 95* CO2 26 27 BUN 28* 31* CREATININE 5.36* 5.78* GLUCOSE 85 72* CALCIUM 8.2* 7.9* PROT 6.1* 6.0* BILITOT 0.6 0.7 ALKPHOS 161* 162* AST 37* 34* ALT <6 <6 Recent Labs 10/22/24 1411 10/23/24 0052 WBC 20.2* 35.0* HGB 7.2* 6.9* HCT 22.2* 21.6* PLT 363 355 LYMPHOPCT 7.2* 1* MONOPCT 6.5 2* BASOPCT 1.1 0 NEUTROABS 16.9* -- Micro: No results for input(s): COVID19 in the last 72 hours. 10/22/2024 2305 10/23/2024 0501 Blood culture Site #1 - Suspected Infection [[id number]] Blood, Venous Preliminary result Component Value Blood Culture Blood culture incubation started P 10/22/2024 1705 10/22/2024 2201 Blood culture Site #2 - Suspected Infection [[id number]] Blood, Venous Preliminary result Component Value Blood Culture Blood culture incubation started P 10/22/2024 1602 10/22/2024 2123 Respiratory Pathogens Panel by PCR [[id number]] Swab from Nasopharynx Final result Component Value SARS-CoV-2 Not Detected Adenovirus Not Detected Coronavirus HKU1 Not Detected Coronavirus NL63 Not Detected Coronavirus 229E Not Detected Coronavirus OC43 Not Detected Human Metapneumovirus Not Detected Human Rhinovirus/Enterovirus Not Detected Influenza A Not Detected Influenza B Not Detected Parainfluenza 1 Not Detected Parainfluenza 2 Not Detected Parainfluenza 3 Not Detected Parainfluenza 4 Not Detected Respiratory Syncytial Virus Not Detected Bordetella pertussis Not Detected Bordetella parapertussis Not Detected Chlamydia pneumoniae Not Detected Mycoplasma pneumoniae Not Detected 10/22/2024 1434 10/22/2024 1458 Aerobic and Anaerobic Culture with Stain [[id number]] (Abnormal) Other from Buttock, Left In process Component Value No component results 10/22/2024 1434 10/22/2024 2148 Culture, Aerobic Bacteria with Gram Stain [[id number]] (Abnormal) Other from Buttock, Left Preliminary result Component Value Culture Culture in progress P Gram Stain Result Rare Polymorphonuclear leukocytes per low power field Abnormal P Many Gram negative bacilli Abnormal P 10/22/2024 1434 10/22/2024 1458 Anaerobic culture [[id number]] Other from Buttock, Left In process Component Value No component results 10/22/2024 1411 10/22/2024 2201 Blood culture Site #1 - Suspected Infection [[id number]] Blood, Venous Preliminary result Component Value Blood Culture Blood culture incubation started P Lines: Tunneled HD cath on 10/12/24 Radiography/Echo/Other: Procedure Component Value Units Date/Time XR chest 1 view [[id number]] Collected: 10/22/24 1545 Order Status: Completed Updated: 10/22/24 154 Narrative: Patient Name: APOORVA GONZALEZ : 1950 Exam Date/Time: 10/22/2024 15:17 Procedure: XR CHEST 1 VIEW Ordering Provider: MONTOYA SAMUEL Reason For Exam: sepsis CLINICAL INFORMATION: Shortness of breath. Sepsis. Renal failure. Portable view of the chest at 1535 hours is provided and compared to a previous study dated October 05, 2024. FINDINGS: A tunneled hemodialysis catheter is in place via the left internal jugular vein. The distal tip is in the superior vena cava. The cardiac silhouette and mediastinum are otherwise unremarkable. Bibasilar infiltrates and effusions are noted. There is prominence of the interstitium and central pulmonary vasculature. Impression: 1. Bibasilar infiltrates and effusions. 2. Prominence of the interstitial and central pulmonary vasculature consistent with mild to moderate congestive heart failure/fluid overload. 3. Overall improvement in the aeration of the lungs when compared to the previous study. Report Dictated on Electronically Signed By: Honorio Henson MD Electronically Signed Date/Time: 10/22/2024 3:46 PM EDT IR CVC Tunneled Dialysis Cath Exchange [[id number]] Collected: 10/12/24 134 Order Status: Completed Updated: 10/12/241346 Narrative: Patient Name: APOORVA GONZALEZ : 1950 Exam Date/Time: 10/12/2024 11:51 Procedure: IR CVC TUNNELED DIALYSIS CATH EXCHANGE Ordering Provider: CASTANEDA RUPESH Reason For Exam: ESRD CLINICAL HISTORY: Renal failure. PROCEDURE: Fluoroscopic and ultrasound-guided left tunneled dialysis catheter placement. Physicians: Dr. Andrade. MEDICATIONS: Local lidocaine EBL: Minimal. Specimen sent: None. Complications: None. Fluoroscopy time: 0.3 minutes Angiographic runs: 0 Fluoroscopic spot images: 0 Total Air Kerma: 0.58 mGy Fluoroscopic saved images were obtained. These images do NOT add additional exposure to ionizing radiation and were captured electronically from the imaging chain. Procedural details: All of the risks, benefits, alternatives of the procedure were explained to the patient and all of the patient's questions were answered. The patient was brought into the interventional radiology suite and placed supine on the table. A timeout was performed. Patient's existing left-sided temporary dialysis catheter is too cranial for successful conversion. The patient's left internal jugular vein was interrogated with ultrasound and found to be widely patent. A permanent ultrasound image was stored to the patient's record. The patient's left neck and chest were prepped and draped in the usual sterile fashion. Maximal sterile barrier technique was utilized. All elements of maximal sterile barrier technique including a mask, hat, sterile gown, sterile gloves, and large sterile sheet were utilized. 2% Chlorhexidine antiseptic was utilized for skin sterilization. Sterile ultrasound gel and a sterile ultrasound probe cover were also used. The subcutaneous tissues were anesthetized using 2 percent lidocaine. Under direct ultrasound visualization, a 21-gauge micropuncture needle was advanced into the left internal jugular vein. A permanent ultrasound image of needle entry into the vessel was stored to the patient record. A 0.018 micro puncture wire was then advanced through the needle and into the IVC under fluoroscopic guidance. A spot image was obtained. This was upsized to a 0.035 J-wire. Attention was then directed to the patient's left chest. A subcutaneous tract was created in the left chest to the venotomy site after subcutaneous anesthesia using 2 percent lidocaine. A 28 cm Quentin split tip tunneled dialysis catheter was then pulled through the tunnel and out the venotomy site. A peel-away sheath was then advanced over the wire into the central circulation after serial dilatation. The catheter was placed through the peel-away sheath. Postplacement imaging showed proper positioning of the tunneled dialysis catheter with the tip terminating in the proximal right atrium. Both lumens of the catheter flushed and aspirated appropriately. The catheter was then sutured to the patient's skin using 2-0 silk suture. The venotomy site was closed using skin glue. The patient tolerated the procedure well. FINDINGS: Tip of tunneled dialysis catheter terminates within the proximal right atrium. Impression: Successful uncomplicated ultrasound and fluoroscopic guided placement of a 28 cm tunneled dialysis catheter. The catheter is ready for immediate use. The sutures should not be removed for two weeks. The patient was then transferred to recovery in stable condition. Report Dictated on Electronically Signed By: Robson Andrade MD Electronically Signed Date/Time: 10/12/2024 1:46 PM EDT Antimicrobials,Start/End Dates: Cefepime 10/22- Vanco 10/22- Impression: Severe sepsis (fever, tachycardia, tachypnea, leukocytosis, altered mental status). Infected left buttock pressure ulcer. Encephalopathy. ESRD, on HD. Recent h/o Enterobacter cloacae/ Kleb pneumo/ Kleb oxytoca/ VR-Enterococcus casseliflavus BSI. Treated. Recent h/o C diff colitis. Treated. Plan: Pt sick due to severe sepsis syndrome. She remained febrile, tachycardic and encephalopathic. Await cx results. R/o infected HD catheter. Recent h/o Enterobacter cloacae/ Kleb pneumo/ Kleb oxytoca/ VR-Enterococcus casseliflavus BSI. Substitute meropenem for cefepime. High level complexity medical decision making. Will follow. Thank you. Total time of 75 minutes on this day of encounter spent on, but not limited to review of tests, medical records , complex history , review of external medical records, paper and electronic, counseling and education (patient, family member, caregiver), ordering medications, tests, and procedures, communication with other health care professions, independent interpretation of tests, care coordination, arrangement of outpatient antimicrobial therapy, post-hospitalization therapy and follow-up, and counseling for risks, benefits, and consideration of use of antimicrobials. [1] Past Medical History: Diagnosis Date Chronic kidney disease (CKD) Hemodialysis patient ([facility]) ([facility]) Wednesday, , Wednesday History of blood transfusion 02/27/2022 Hypertension Seizure (HCC) Developed seizure-like activity on 02/24 during hospital admission [2] Past Surgical History: Procedure Laterality Date AV FISTULA PLACEMENT Left 08/07/2022 COLONOSCOPY N/A 01/25/2024 Performed by Chrissy Gilman MD at [facility] ENDOSCOPY IR CVC TUNNELED DIALYSIS CATHETER PLACEMENT 02/27/2022 IR CVC TUNNELED CATHETER PLACEMENT 02/27/2022 Candis Andrade MD [facility] SPECIAL PROCEDURES IR EMBOLIZATION 01/24/2024 IR EMBOLIZATION 01/24/2024 Jovan Glynn MD [facility] SPECIAL PROCEDURES [3] Current Facility-Administered Medications Medication Dose Route Frequency Provider Last Rate Last Admin acetaminophen (Tylenol) tablet 650 mg 650 mg Oral q6h PRN Loni Zambrano MD Or acetaminophen (Tylenol) suppository 650 mg 650 mg Rectal q6h PRN Loni Zambrano MD 650 mg at 10/23/24 0741 acetaminophen (Tylenol) tablet 650 mg 650 mg Oral q6h PRN Loni Zambrano MD cefepime (Maxipime) 1,000 mg in sodium chloride 0.9 % 50 mL IVPB 1,000 mg IntraVENous q12h Loni Zambrano MD 100 mL/hr at 10/23/24 0741 1,000 mg at 10/23/24 0741 chlorhexidine (Hibiclens) 4 % solution Topical Daily Loni Zambrano MD heparin injection 1,200-2,000 Units 1,200-2,000 Units IntraCATHeter PRN Loni Zambrano MD heparin injection 1,200-2,000 Units 1,200-2,000 Units IntraCATHeter PRN Loni Zambrano MD heparin injection 1,200-2,000 Units 1,200-2,000 Units IntraCATHeter PRN Loni Zambrano MD heparin injection 1,200-2,000 Units 1,200-2,000 Units IntraCATHeter DOROTHEAN Loni Zambrano MD heparin injection 5,000 Units 5,000 Units SubCUTAneous 2 times per day Loni Zambrano MD 5,000 Units at 10/22/24 2331 levETIRAcetam in sodium chloride (Keppra) IVPB 500 mg 500 mg IntraVENous Daily Jalen Snider MD Stopped at 10/22/24 2335 ondansetron ODT (Zofran-ODT) disintegrating tablet 4 mg 4 mg Oral q8h PRN Loni Zambrano MD Or ondansetron (Zofran) injection 4 mg 4 mg IntraVENous q6h PRN Loni Zambrano MD polyethylene glycol (PEG) 3350 (Miralax) packet 17 g 17 g Oral Daily PRN Loni Zambrano MD [Held by provider] sevelamer carbonate (Renvela) tablet 800 mg 800 mg Oral TID WC Loni Zambrano MD sodium chloride 0.9 % infusion 5-250 mL/hr IntraVENous PRN Loni Zambrano MD sodium chloride 0.9% (NS) flush 5-40 mL 5-40 mL IntraVENous 2 times per day Loni Zambrano MD 10 mL at 10/22/24 2315 sodium chloride 0.9% (NS) flush 5-40 mL 5-40 mL IntraVENous PRN Loni Zambrano MD vancomycin (Vancocin) intermittent dosing (placeholder) Other RX Placeholder Loni Zambrano MD [4] No Known Allergies [5] Family History Problem Relation Name Age of Onset Dementia Mother Stroke Father Prostate cancer Brother 69 Breast cancer Cousin 32 Stomach cancer Mother's Sister 70 Associated Order(s): INPATIENT CONSULT TO WOUND CARE PROVIDERS Images from the original note were not included. [facility] Wound Care CONSULT Note Apoorva Gonzalez AGE: 74 y.o. GENDER: female : 1950 Subjective: HISTORY of PRESENT ILLNESS HPI Apoorva Gonzalez is a 74 y.o. female who presents for a wound consult. HPI: Apoorva is a 74 y.o. female who presented to the emergency department on 10/22/24 with chief complaint of AMS. Pt is resident of [place] at [facility]. Report one day of increasing weakness and AMS. She receives dialysis 5x/week Wed-Wednesday. No missed sessions. Temp 101.3F at SNF. Hospitalized from 08/14 - 08/24 at [facility] for cardiac arrest and sepsis and again from 08/26 to 09/06 at for sepsis believed to be due to an infected right thigh wound and hematoma. Hospitalized again at [facility] from 09/13 - 10/12 due to covid-19 sepsis and electrolyte derangements. Wound Care consulted for pressure Injury coccyx and buttock PAST MEDICAL HISTORY Medical History[1] PAST SURGICAL HISTORY Surgical History[2] FAMILY HISTORY Family History[3] SOCIAL HISTORY Social History[4] ALLERGIES Allergies[5] MEDICATIONS Medications Ordered Prior to Encounter[6] REVIEW OF SYSTEMS Pertinent items are noted in HPI. Objective: BP 126/75 Pulse (!) 123 Temp 37.8 C (100 F) (Axillary) Resp 18 Ht 5' 4 (1.626 m) Wt 106 lb 7.7 oz (48.3 kg) SpO2 98% BMI 18.28 kg/m PHYSICAL EXAM General appearance: in no apparent distress, well developed and well nourished, in no respiratory distress and acyanotic, alert, cooperative, and moderately ill Skin: warm and dry Pulmonary: Normal effort, no respiratory distress, no cyanosis Sacrum extending to left buttock: [id number] cm. Wound bed with a mix of small pink tissue and large adherent yellow slough present. Aminah wound intact with no erythema and fragile. 10/23/24 LABS CBC: Lab Results Component Value Date WBC 35.0 (HH) 10/23/2024 HGB 6.9 (LL) 10/23/2024 HCT 21.6 (L) 10/23/2024 MCV 91.9 10/23/2024 PLT 355 10/23/2024 BMP: Lab Results Component Value Date NA 134 (L) 10/23/2024 K 3.5 10/23/2024 CL 95 (L) 10/23/2024 CO2 27 10/23/2024 BUN 31 (H) 10/23/2024 CREATININE 5.78 (H) 10/23/2024 PT/INR: No results found for: PROTIME, INR Prealbumin: No results found for: PREALBUMIN Albumin:No components found for: LABALBU Sed Rate:No results found for: SEDRATE Micro: No components found for: BC Assessment/Plan: Nursing staff to perform dressing change: Sacrum extending to left buttock: Pressure Injury Unstageable (POA) -cleanse with NS, apply santyl followed by xeroform, cover with dry clean dressing daily and PRN. -ICU bed -waffle chair cushion -Q2hr/PRN turns -glide sheets for T&R -continence checks Q1-2 Hrs/PRN Nutritional support Wound Care to follow Recommend to follow up at [facility] Outpatient wound care center after hospital discharge. Any questions or concerns please secure chat [facility] wound/ostomy. Thank you for the consult! I personally obtained the saavedra and critical portions of the history and physical exam. I reviewed the labs, imaging studies, and electronic medical record. I reviewed the chart documentation and discussed the patient with treatment team members. I have edited the note to reflect my clinical findings and my assessment and plan. Please note, the time of this note does not reflect the time I saw this patient today, but the time of this documentaton. Portions of this note including HPI, ROS, impression/plan, and examination may have been copied forward from admission to today as to provide important historical information essential in contributing to medical decision making. Documentation has been reviewed and edited as necessary to support clinical decision making for today's visit and to reflect my own independent evaluation of this patient. Decision making for today's visit and to reflect my own independent evaluation of this patient. [1] Past Medical History: Diagnosis Date Chronic kidney disease (CKD) Hemodialysis patient (CMS/HCC) ([facility]) Wednesday, , Wednesday History of blood transfusion 02/27/2022 Hypertension Seizure ([facility]) Developed seizure-like activity on 02/24 during hospital admission [2] Past Surgical History: Procedure Laterality Date AV FISTULA PLACEMENT Left 08/07/2022 COLONOSCOPY N/A 01/25/2024 Performed by Chrissy Gilman MD at [facility] ENDOSCOPY IR CVC TUNNELED DIALYSIS CATHETER PLACEMENT 02/27/2022 IR CVC TUNNELED CATHETER PLACEMENT 02/27/2022 Candis Andrade MD [facility] SPECIAL PROCEDURES IR EMBOLIZATION 01/24/2024 IR EMBOLIZATION 01/24/2024 Jovan Glynn MD [facility] SPECIAL PROCEDURES [3] Family History Problem Relation Name Age of Onset Dementia Mother Stroke Father Prostate cancer Brother 69 Breast cancer Cousin 32 Stomach cancer Mother's Sister 70 [4] Social History Tobacco Use Smoking status: Never Smokeless tobacco: Never Vaping Use Vaping status: Never Used Substance Use Topics Alcohol use: Yes Alcohol/week: 2.0 standard drinks of alcohol Types: 2 Glasses of wine per week Comment: weekly Drug use: Never [5] No Known Allergies [6] No current facility-administered medications on file prior to encounter. Current Outpatient Medications on File Prior to Encounter Medication Sig Dispense Refill acetaminophen (Tylenol) 325 MG tablet Take 650 mg by mouth every 6 hours as needed. atorvastatin (Lipitor) 40 MG tablet Take 1 tablet (40 mg) by mouth Nightly. 30 tablet 11 B complex-vitamin C-folic acid (Nephro-Coleen) 0.8 MG tablet Take 0.8 mg by mouth daily. cholecalciferol (Vitamin D-3) 125 MCG (5000 UT) capsule Take 5,000 Units by mouth daily. cyclobenzaprine (Flexeril) 5 MG tablet Take 1 tablet (5 mg) by mouth 3 times daily as needed for muscle spasms for up to 10 days. levETIRAcetam (Keppra) 500 MG tablet Take 1 tablet (500 mg) by mouth daily. 30 tablet 1 meclizine (Antivert) 25 MG tablet Take 1 tablet (25 mg) by mouth 3 times daily as needed for dizziness for up to 10 doses. 10 tablet 0 sevelamer (Renagel) 800 MG tablet Take 800 mg by mouth 3 times daily (with meals). Swallow tablet whole; do not crush, break, or chew. Thiamine HCl (vitamin B-1) 250 MG tablet Take 250 mg by mouth daily. calcium acetate (Phoslo) 667 MG tablet Take 1 tablet by mouth in the morning and 1 tablet at noon and 1 tablet in the evening. Take with meals. [] cefdinir (Omnicef) 300 MG capsule Take 1 capsule (300 mg) by mouth daily for 8 days. 8 capsule 0 [] linezolid (Zyvox) 600 MG tablet Take 1 tablet (600 mg) by mouth every 12 hours for 15 doses. 15 tablet 0 magnesium hydroxide (Milk of Magnesia) 2400 MG/10ML suspension suspension Take 30 mL by mouth Daily as needed for constipation. Cosigned by Evan Culp DO at 10/30/2024 5:10 PM EDT Images from the original note were not included. Pharmacy Managed Vancomycin Dosing Service Consult Note Consult Date: 10/22/24 Patient Name: Apoorva Gonzalez Allergies: Patient has no known allergies. Age: 74 y.o. Sex: female Estimated body mass index is 18.28 kg/m as calculated from the following: Height as of 09/26/24: 1.626 m (5' 4). Weight as of this encounter: 48.3 kg (106 lb 7.7 oz). Lab Results Component Value Date CREATININE 5.36 (H) 10/22/2024 CREATININE 4.49 (H) 10/12/2024 BUN 28 (H) 10/22/2024 BUN 23 10/12/2024 WBC 20.2 (H) 10/22/2024 WBC 16.7 (H) 10/12/2024 Calculated CrCl: 6.9 mL/min Consulted By: Dr. Tuan Montoya Infectious Diagnosis: Sepsis Unknown (AUC Goal 400-600 mg/L*hr) Antimicrobials: Patient recently received an antibiotic (last 12 hours) Date/Time Action Medication Dose Rate 10/22/24 1451 New Bag piperacillin-tazobactam (Zosyn) 2,250 mg in sodium chloride 0.9 % 50 mL IVPB Mini-Bag Plus 2,250 mg 100 mL/hr Assessment/Plan: Doses, serum creatinine, and vancomycin levels interfaced automatically to [employer] and data has been analyzed and interpreted. Start Vancomycin 1000 mg Q 24 hours based on patient age, weight, renal function, and infectious diagnosis (20 mg/kg). Predicted AUC = 547 mg/L*hr (goal 400-600 mg/L*hr) Will assess level on 10/23/2024 and adjust as appropriate. Trend serum creatinine. Orders placed. Thank you for this consult. Please secure text or call with questions. DATE: 10/22/24 TIME: 3:40 PM Gee Ryder PharmD Clinical Pharmacist Available via Secure Chat documented in this encounter [facility] 10-31-2024 Hospital Discharge instructions Jessica La RN - 10/31/2024 2:42 PM EDT Images from the original note were not included. Continuity of Care Form Patient Name: Apoorva Gonzalez : 1950 Admit date: 10/22/2024 Discharge date: 11/11/24 Code Status Order: DNR-CCA Advance Directives: Y Admitting Physician: Loni Zambrano MD PCP: Roxie Spain Discharging Nurse: Discharging Hospital Unit/Room#: B2-258/B2-258 A Discharging Unit Phone Number: [phone] Emergency Contact: Extended Emergency Contact Information Primary Emergency Contact: Deshawn Crystal Mobile Relation: Brother Technical Coordinator needed? No Secondary Emergency Contact: Edward Ruggiero Mobile Relation: Significant Other Preferred language: Cambodian Technical Coordinator needed? No Past Surgical History: Past Surgical History: Procedure Laterality Date AV FISTULA PLACEMENT Left 08/07/2022 COLONOSCOPY N/A 01/25/2024 Performed by Chrissy Gilman MD at [facility] ENDOSCOPY IR CVC TUNNELED DIALYSIS CATHETER PLACEMENT 02/27/2022 IR CVC TUNNELED CATHETER PLACEMENT 02/27/2022 Candis Andrade MD [facility] SPECIAL PROCEDURES IR EMBOLIZATION 01/24/2024 IR EMBOLIZATION 01/24/2024 Jovan Glynn MD [facility] SPECIAL PROCEDURES Immunization History: Immunization History Administered Date(s) Administered Moderna SARS-CoV-2 Vaccination 07/24/2020, 08/21/2020, 03/05/2021 Active Problems: Medical Problems Problem List * (Principal) Sepsis, due to unspecified organism, unspecified whether acute organ dysfunction present (HCC) Hypertensive emergency Gastrointestinal hemorrhage, unspecified gastrointestinal hemorrhage type Pulmonary edema, acute (HCC) Shortness of breath COVID-19 Edema of left lower extremity Anemia Isolation/Infection: Contact CRE Nurse Assessment: Last Vital Signs: BP (!) 175/98 Pulse 111 Temp 36.5 C (97.7 F) (Temporal) Resp 16 Ht 1.626 m (5' 4) Wt 51 kg (112 lb 7 oz) SpO2 98% BMI 19.30 kg/m Last documented pain score (0-10 scale): Last Weight: Wt Readings from Last 1 Encounters: 10/31/24 51 kg (112 lb 7 oz) Mental Status: SHERIE Patient Mental Status: oriented and alert IV Access: SHERIE IV Access: Dialysis Catheter - site: L chest, insertion date: Nursing Mobility/ADLs: Walking Total assistance Transfer Total assistance Bathing Total assistance Dressing Total assistance Toileting Total assistance Feeding Independent Retail Marketing Specialist Minimal assistance Med Delivery yes Wound Care Documentation and Therapy: Wound/Incision 09/14/24 Incision Leg Anterior;Right;Upper (Active) Number of days: 46 Wound/Incision 09/26/24 Pressure Injury Sacrum (Active) Site Assessment [place];Yellow 10/30/24 1002 Aminah-Wound Assessment Clean;Intact 10/30/24 2226 Wound Length (cm) 2.4 cm 10/23/24 0830 Wound Width (cm) 3 cm 10/23/24 0830 Wound Surface Area (cm^2) 5.65 cm^2 10/23/24 0830 Odor None 10/29/24 1058 Drainage Amount Small 10/30/24 1002 Treatments Site care;Pharmaceutical agent 10/30/24 1002 Primary Dressing Foam 10/30/24 2226 Dressing Status Clean, dry & intact 10/30/24 2226 Number of days: 34 Elimination: Continence: Bowel: no Bladder: no Urinary Catheter: None Colostomy/Ileostomy/Ileal Conduit: None Date of Last BM: 11/11/24 Intake/Output Summary (Last 24 hours) at 10/31/2024 1441 Last data filed at 10/30/2024 1823 Gross per 24 hour Intake 936 ml Output -- Net 936 ml I/O last 3 completed shifts: In: 1186 (23.3 mL/kg) [P.O.:1186] Out: - (0 mL/kg) Weight: 51 kg Safety Concerns: none Impairments/Disabilities: none Nutrition Therapy: Current Nutrition Therapy: Oral diet: general Routes of Feeding: oral Liquids: thin liquids Daily Fluid Restriction: no Last Modified Barium Swallow with Video (Video Swallowing Test): not done Treatments at the Time of Hospital Discharge: Respiratory Treatments: Oxygen Therapy: is not on home oxygen therapy. Ventilator: No ventilator support Rehab Therapies: physical therapy and occupational therapy Weight Bearing Status/Restrictions: Other Medical Equipment (for information only, NOT a DME order): Other Treatments: Patient's personal belongings (please select all that are sent with patient): all RN SIGNATURE: MANAGEMENT/SOCIAL WORK SECTION Inpatient Status Date: 10/22/24 Discharging to Facility/ Agency Name: [facility] Address: [address] [place] [address] Fax: Dialysis Facility (if applicable) Name:[facility] Address:[address] [place] [address] Dialysis Schedule:TTa Fax: Central Supply Nurse/[employer] Bus Driver signature: ICIAN SECTION Name: Apoorva Gonzalez Prognosis: fair Condition at Discharge: stable Rehab Potential (if transferring to Rehab): good Recommended Labs or Other Treatments After Discharge: She is on dialysis, and should follow BMP, magnesium and phosphorus at least surrounding the time she is dialyzed. I will check a hemoglobin in 2 to 3 days. The individual is being admitted to a nursing facility directly from an [facility] or a unit of a [facility] that is not operated by or licensed by [facility] under section 5119.14 or 5160-3-15.1 5 The individual requires the level of services provided by a nursing facility for the condition for which he or she was treated in the hospital and, Physician Certification: I certify the above information and transfer of Apoorva Gonzalez is necessary for the continuing treatment of the diagnosis listed and that she requires halfway facility for less than 30 days. Update Admission H&P: Changes in H&P as follows: 74-year-old female presenting with fever and tachycardia.history of hypertension, hyperlipidemia, ESRD on hemodialysis and previous history of seizures she has had frequent hospitalizations in the last several months. From , to August 24 she had an infected hematoma in the right thigh and anterior hip. She had a wound VAC after it was drained. She returned to the hospital on August 26, 2024 for the expanding hematoma requiring 2 units of PRBCs. From September 13 to October 12, 2024, she was treated for new onset atrial fibrillation complicated by COVID-19 infection. At that time, she was also positive for Enterobacter cloacae bacteremia, Klebsiella pneumoniae, Klebsiella oxytoca. She was sent to the ICU transiently due to high fevers, tachycardia, and tachypnea which might have been a drug reaction to meropenem she was on. She was also treated for C. difficile colitis. She had a tunneled HD catheter placed on discharge. She is discharged to nursing facility. There is concern that she had a fistula infection and could be potentially the source. She had an excision of the left upper extremity infected graft on November 02, 2024. Infectious disease recommended Bactrim renally dosed through November 13. Nephrology has been following for dialysis. From November 04 to November 05, she was having bleeding from her AV fistula requiring blood transfusions and on November 05 she had an ex lap of the left upper extremity with evacuation of hematoma. She was having increasing pain. Vascular surgery evaluated and looked at her wound and took off a couple sutures from her 3 incisions, and they evacuated a 50 cc old clot, and irrigated this extensively without any further bleeding. There is some trace oozing around the skin edges. She had some improvement with the local swelling. They attempted to do a duplex ultrasound on her to see if there was a DVT but could not see anything 1 way or another. Her hemoglobin has been stable now for the last 2 days. Her pain has been well-controlled. Vascular surgery signed off and was not planning on any intervention. PHYSICIAN SIGNATURE: documented in this encounter [facility] 10-22-2024 Procedure note Business Supervisor arrived at pt room to draw cultures from tunnel dialysis line. While wearing proper ppe and using aseptic technique. Blood drawn and put into aerobic and anerobic culture bottles. Cvc was heparinized and capped, dressing changed documented in this encounter [facility] 10-22-2024 History and physical note Attending History and Physical Admit Date: 10/22/2024 PCP: Roxie Spain CHIEF COMPLAINT: Fever, tachycardia, and lethargy Reason for Admission: Sepsis History Obtained From: patient HISTORY OF PRESENT ILLNESS: Apoorva is a 74 y.o. female with past medical history hypertension, chronic kidney disease on hemodialysis 3 times a week, history of seizures presents to the emergency department respite facility but she resides at in [facility], typically uses a wheel chair to get around. HC GENET is partner = Edward and brother Deshawn - recently signs at her facility. In the ED, she was tachycardic 120, respiratory rate 22, BP 81/78, temperature 37.7 and 100% on room air. EKG was obtained showing sinus tachycardia with heart rate of 117, QTc 449, left ventricular hypertrophy. Temperature went up to 101.0 Fahrenheit, WBC 20.2, hemoglobin 7.2, lactic acid 1.5, CMP sodium 135, potassium 3.1, anion gap 16, BUN of 20, creatinine 5.36, calcium low at 8.2 with an AST of 37, alkaline phosphatase 161, albumin 1.4. Total protein of 6.1, troponin elevated at 23. She was given a 500 cc bolus with restriction given kidney disease. Started on pip-tazo,. UA unremarkable for WBCs, but positive for blood and proteinuria light orange color. Was treated with Tylenol. Chest x-ray showing bibasilar infiltrates and effusions, Central pulmonary vascular consistent with mild to moderate congestive heart failure and fluid overload, overall improvement in the aeration of the lungs. Recently admitted from 09/13 to 10/12 at [facility] for new onset atrial fibrillation complicated by COVID 19 infection, Enterobacter cloacae, Klebsiella pneumonia, Klebsiella oxytocin and VR Enterococcus which she was treated for complete course. Went into septic shock at that time for increased leukocytosis and C. difficile colitis which was treated.Requiring ICU admission during admission and tunneled HD catheter placed on discharge on 10/12 prior to going to hospital. Of note had a recent infected hematoma which was I&D at [facility] and treated with antibiotics from 08/14-08/24 in which she went under cardiac arrest which was thought to be due to the right thigh and anterior hip abscess - which was drained and she left with wound vac. Returned on 08/26 for expanding hematoma to the right thigh requiring 2 units of pRBC, and transferred to [facility] for IR emobolization of thigh hematoma, but a decision was made not to perform any intervention and she was discharged to SNF on 09/06. Unable to obtain ROS for patient given that she was sleeping and when awake would only moan and not respond to any questions. Edward at bedside, denies her making any specific complaint lately. Will admit for further evaluation and management. Past Medical History: Past Medical History: Diagnosis Date Chronic kidney disease (CKD) Hemodialysis patient ([facility]) ([facility]) Wednesday, , Wednesday History of blood transfusion 02/27/2022 Hypertension Seizure ([facility]) Developed seizure-like activity on 02/24 during hospital admission Past Surgical History: Surgical History[1] Social History: Social History Socioeconomic History Marital status: Spouse name: Not on file Number of children: Not on file Years of education: Not on file Highest education level: Not on file Occupational History Not on file Tobacco Use Smoking status: Never Smokeless tobacco: Never Vaping Use Vaping status: Never Used Substance and Sexual Activity Alcohol use: Yes Alcohol/week: 2.0 standard drinks of alcohol Types: 2 Glasses of wine per week Comment: weekly Drug use: Never Sexual activity: Not on file Other Topics Concern Not on file Social History Narrative Not on file Social Drivers of Health Financial Resource Strain: Low Risk (08/31/2024) Received from [facility] Overall Financial Resource Strain (CARDIA) Difficulty of Paying Living Expenses: Not hard at all Food Insecurity: No Food Insecurity (08/31/2024) Received from [facility] Hunger Vital Sign Worried About Running Out of Food in the Last Year: Never true Ran Out of Food in the Last Year: Never true Transportation Needs: No Transportation Needs (08/31/2024) Received from [facility] PRAPARE - Transportation Lack of Transportation (Medical): No Lack of Transportation (Non-Medical): No Physical Activity: Not on file Stress: Not on file Social Connections: Not on file Intimate Partner Violence: Not At Risk (08/31/2024) Received from [facility] Humiliation, Afraid, Rape, and Kick questionnaire Fear of Current or Ex-Partner: No Emotionally Abused: No Physically Abused: No Sexually Abused: No Housing Stability: Low Risk (08/31/2024) Received from [facility] Housing Stability Vital Sign Unable to Pay for Housing in the Last Year: No Number of Times Moved in the Last Year: 0 Homeless in the Last Year: No Family History: Family History[2] Medications Prior to Admission: Current Medications[3] Medications Reconciliation: Medications were reviewed in chart and verified as accurate by review of records with family and/or extended care facility Allergies: Allergies[4] REVIEW OF SYSTEMS: Unable to get good review of systems due to mentations Vitals: BP (!) 194/86 Pulse (!) 115 Temp (!) 38.3 C (101 F) (Rectal) Resp 16 Wt 106 lb 7.7 oz (48.3 kg) SpO2 95% BMI 18.28 kg/m BMI Classification: Underweight (BMI <18.5) Pulse Ox: SpO2 Av.3 % Min: 94 % Max: 100 % Supplemental O2: PHYSICAL EXAM: Physical Exam Vitals and nursing note reviewed. Constitutional: General: She is in acute distress. Appearance: She is ill-appearing. Comments: Lethargic - only moans does not give verbal replies HENT: Mouth/Throat: Pharynx: Oropharynx is clear. Eyes: Conjunctiva/sclera: Conjunctivae normal. Cardiovascular: Rate and Rhythm: Normal rate. Heart sounds: No murmur heard. Pulmonary: Effort: Pulmonary effort is normal. No respiratory distress. Breath sounds: No wheezing or rales. Abdominal: General: Bowel sounds are normal. Tenderness: There is no abdominal tenderness. Comments: Left lower quadrant - square mass under skin Musculoskeletal: General: Swelling, tenderness and signs of injury present. Comments: Sacral wound Skin: General: Skin is warm. Capillary Refill: Capillary refill takes less than 2 seconds. Neurological: General: No focal deficit present. Mental Status: She is alert. She is disoriented. GCS: GCS eye subscore is 2. GCS verbal subscore is 2. GCS motor subscore is 5. Motor: Weakness present. DATA: CBC: Recent Labs 10/22/24 1411 WBC 20.2* RBC 2.44* HGB 7.2* HCT 22.2* MCV 91.0 RDW 15.3* PLT 363 BMP: Recent Labs 10/22/24 141 NA 135* K 3.1* CL 93* CO2 26 BUN 28* CREATININE 5.36* GLUCOSE 85 CALCIUM 8.2* ANIONGAP 16* LIVER PROFILE: Recent Labs 10/22/24 141 AST 37* ALT <6 BILITOT 0.6 ALKPHOS 161* PROT 6.1* PT/INR: No results for input(s): PROTIME, INR in the last 72 hours. CARDIAC ENZYMES: No results for input(s): TROPONINI in the last 72 hours. Procalcitonin: No results found for: PROCAL Urine Culture: No results found for this or any previous visit. COVID-19 PCR: No results for input(s): COVID19 in the last 72 hours. I reviewed: [x] laboratory results [x] radiographic results At the time of today's encounter. Pt was advised of the results. Data: (CAT1) Reviewed 3 or more notes from different specialty or health system (each=1). (CAT1) Reviewed 3 or more labs/studies ordered by another provider not previously counted (each=1, panels count as 1). (CAT1) Reviewed 3 or more labs/studies previously ordered by me not previously counted (each=1, panels count as 1). (CAT1) Additional studies (MRI head due to confusion ) were considered but not performed due to uncertainty on device in abdome nregion, after discussing with patient/family (each=1). (CAT1) Clinical information was necessarily obtained from an independent historian. (LOW: 2x CAT1 or independent historian MOD: 3x CAT1 or 1x CAT3 EXTENSIVE: 3x CAT1 and 1x CAT3) Previous review of sensitivities Susceptibility Klebsiella pneumoniae Enterococcus casseliflavus Klebsiella oxytoca BROTH MICRODILUTION ETEST BROTH MICRODILUTION BROTH MICRODILUTION Ampicillin Resistant <=2 ug/ml Susceptible Resistant Ampicillin / Sulbactam 4 ug/ml Susceptible 4 ug/ml Susceptible Aztreonam <=1 ug/ml Susceptible <=1 ug/ml Susceptible Cefazolin 4 ug/ml Intermediate 4 ug/ml Intermediate Cefepime <=0.12 ug/ml Susceptible <=0.12 ug/ml Susceptible Ceftriaxone <=0.25 ug/ml Susceptible <=0.25 ug/ml Susceptible Ciprofloxacin <=0.06 ug/ml Susceptible <=0.06 ug/ml Susceptible Daptomycin 2 ug/ml Susceptible Doxycycline <=0.5 ug/ml Susceptible Ertapenem <=0.12 ug/ml Susceptible <=0.12 ug/ml Susceptible Gentamicin <=1 ug/ml Susceptible <=1 ug/ml Susceptible Gentamicin High Level Susceptible Levofloxacin <=0.12 ug/ml Susceptible <=0.12 ug/ml Susceptible Linezolid 2 ug/ml Susceptible Meropenem <=0.25 ug/ml Susceptible <=0.25 ug/ml Susceptible Piperacillin / Tazobactam <=4 ug/ml Susceptible <=4 ug/ml Susceptible Streptomycin High Level Susceptible Trimethoprim / Sulfamethoxazole <=20 ug/ml Susceptible <=20 ug/ml Susceptible Vancomycin Resistant Assessment Discussed management with the ED provider and agree with hospitalization. Acute, acute on chronic, unstable/uncontrolled chronic problems/diagnoses: Severe Sepsis - SIRS + bacteria suspected - Altered mental status, Creatine elevated but unable to use (given ESRD), Admit to tele Antibiotics: Cefepime Vancomycin ID consult - given complexity and multiple sources. Daily CBC and CMP Renal dose medications Monitor fluid overload vs dehydration Follow up blood cultures - only one was able to be obtained due to vascular issues in ED - messaged nursing to obtain a sample of tunnel dialysis port. Central line care ordered. Altered mental status - metabolic encephalopathy, GCS 9 Hyponatremia - Mild ESRD on HD 5 days a week, Tunnel line inserted 09/12 - no documentation - last known note states it was removed n 09/12, AV fistula on left arm, Nephrology consultation s Avoid nephro toxic agents Sevelamer 800 mg with meals, Chronic pain Oxycodone 5 mg q6 h prn HOLD cyclobenzapine Bowel regimen, Normocytic anemia - most likely anemia of chronic disease Obtain iron, iron studies, Minimally elevated troponin - likely demand. Unknown device to LLQ Monitor - continue to investigate what it is - unable to find in records - not sure if pain pump or something else at this time - but could be a source Left bottock ulcer Wound care consultation, may need to consider surgery for debridement. Hx of seizures Obtain Keppra levels. Keppra 500 mg po daily Hyperlipidemia Atorvastatin 40 mg PO daily Plan As a result of the above findings & factors, the following mgmt was pursued: - 10/22 - Admit as above - am labs, replace lytes prn - PT/OT/CM/SW - delirium precautions: increase activity and limit nighttime disturbances - DVT prophylaxis: heparin and encourage ambulation Complexity: End-stage chronic illness posing a constant threat to life (HIGH). Risk: Admission to hospital-level care was considered or occurred (HIGH). Escalation of care to ICU was considered or occurred (HIGH). Advance Directive: Prior Anticipated Discharge - Date - - Location - SNF - Pending the following - once medically stable to return Total time spent (which include face to face and non face to face encounters) : 95 minutes. = Prolonged admission given complexity and extensive chart review Toxic drug monitoring/narrow therapeutic index drug monitoring : # Drug name : Keppra # Route administered : oral # Method of monitoring : monitor therapeutic levels Extended Emergency Contact Information Primary Emergency Contact: Mayur Matthews Mobile Relation: Grandchild Secondary Emergency Contact: Deshawn Crystal Mobile Relation: Brother Technical Coordinator needed? No ADVANCED CARE PLANNING Apoorva Gonzalez : 1950 Primary Care Physician: Roxie Spain The patient and/or family/surrogate voluntarily agreed to participate in ACP services. Patient s cognitive capacity: confused Code Status: [X] [FULL CODE - Continue all advanced life support: CPR,intubation,invasive procedures] [_] [DNR-CCA - DO NOT do CPR, intubation] [_] [DNR-CDL SERVICE TECHNICIAN - Comfort care only] [_] DNR form [was/was not] signed Summary of discussion: The patient health care POA/ surrogate is the following: Edward - partner and Dsehawn - brother . [Condition that instigated the ACP on this DOS, relevant PMH, functional status, goals of care, and whom this was discussed with including names and relationship to the patient, and any relevant advance care documentation discussion] I answered all the patient/family questions that I could within the range and scope of the current medical situation. We discussed the medical conditions, risks, benefits, outcomes, and goals of care at this time for the patient's medical issues at hand in the face of the patient's chronic issues and current presentation. Total time spent: 3 minutes were spent discussing the patient's resuscitation status, advance care planning, and end of life care, with patient and/or family/surrogate. Loni Zambrano MD [facility] [1] Past Surgical History: Procedure Laterality Date AV FISTULA PLACEMENT Left 08/07/2022 COLONOSCOPY N/A 01/25/2024 Performed by Chrissy Gilman MD at [facility] ENDOSCOPY IR CVC TUNNELED DIALYSIS CATHETER PLACEMENT 02/27/2022 IR CVC TUNNELED CATHETER PLACEMENT 02/27/2022 Candis Andrade MD [facility] SPECIAL PROCEDURES IR EMBOLIZATION 01/24/2024 IR EMBOLIZATION 01/24/2024 Jovan Glynn MD [facility] SPECIAL PROCEDURES [2] Family History Problem Relation Name Age of Onset Dementia Mother Stroke Father Prostate cancer Brother 69 Breast cancer Cousin 32 Stomach cancer Mother's Sister 70 [3] Current Facility-Administered Medications: sodium chloride 0.9 % infusion, 5-250 mL/hr, IntraVENous, PRN, Tuan Bela Romina, DO sodium chloride 0.9% (NS) flush 5-40 mL, 5-40 mL, IntraVENous, 2 times per day, Tuan D Romina, DO sodium chloride 0.9% (NS) flush 5-40 mL, 5-40 mL, IntraVENous, PRN, Tuan D Romina, DO vancomycin (Vancocin) 1,000 mg in sodium chloride 0.9 % 250 mL IVPB, 1,000 mg, IntraVENous, q24h, Tuan Bela Romina, DO Current Outpatient Medications: atorvastatin (Lipitor) 40 MG tablet, Take 1 tablet (40 mg) by mouth Nightly., Disp: 30 tablet, Rfl: 11 calcium acetate (Phoslo) 667 MG tablet, Take 1 tablet by mouth in the morning and 1 tablet at noon and 1 tablet in the evening. Take with meals., Disp: , Rfl: cholecalciferol (Vitamin D-3) 125 MCG (5000 UT) capsule, Take 5,000 Units by mouth daily., Disp: , Rfl: cyclobenzaprine (Flexeril) 5 MG tablet, Take 1 tablet (5 mg) by mouth 3 times daily as needed for muscle spasms for up to 10 days., Disp: , Rfl: levETIRAcetam (Keppra) 500 MG tablet, Take 1 tablet (500 mg) by mouth daily., Disp: 30 tablet, Rfl: 1 meclizine (Antivert) 25 MG tablet, Take 1 tablet (25 mg) by mouth 3 times daily as needed for dizziness for up to 10 doses., Disp: 10 tablet, Rfl: 0 Thiamine HCl (vitamin B-1) 250 MG tablet, Take 250 mg by mouth daily., Disp: , Rfl: [4] No Known Allergies documented in this encounter [facility] 10-22-2024 Emergency department Note USIV stopped working, unable to start vanc at this time. GARMENT ALTERATION EXAMINER RN called for USIV. Provider notified. Pt's grandson Mayur (information in contacts) would like contacted if pt's status changes. US IV placed by Dr Montoya, one set of cultures obtained from that line. DO attempted second US for second set of blood cultures without success and states we will just send one set of blood cultures. Medic unable to obtain US IV. air and water filler notified and is to attempt. Unable to obtain IV or blood draw after two attempts by RN and one by medic. Medic at bedside at this time attempting US IV for labs and IC access. EMERGENCY DEPARTMENT ENCOUNTER Pt Name: Apoorva Gonzalez Birthdate 1950 Date of evaluation: 10/22/2024 ED Provider: Tuan Montoya DO Subjective: CHIEF COMPLAINT Chief Complaint Patient presents with Altered Mental Status Pt came from shelter. Squad was called for weakness and altered mental status. Pt is not diabetic. Gcs 14 due to confusion a&ox2. Pt bgl was 99. Pt fistula is in left arm . HISTORY OF PRESENT ILLNESS (Location/Symptom, Timing/Onset, Context/Setting, Quality, Duration, Modifying Factors, Severity) Note limiting factors. I wore appropriate PPE for the entirety of this encounter. HPI Apoorva Gonzalez is a 74 y.o. female who presents to the emergency department with chief complaint of AMS. Pt is resident of [place] at [facility]. Collateral hx provided by [facility] nurse and EMS. Report one day of increasing weakness and AMS. She receives dialysis 5x/week Wed-Wednesday. No missed sessions. Temp 101.3F at [facility]. Hospitalized from 08/14 - 08/24 at [facility] for cardiac arrest and sepsis and again from 08/26 to 09/06 at for sepsis believed to be due to an infected right thigh wound and hematoma Hospitalized again at [facility] from 09/13 - 10/12 due to covid-19 sepsis and electrolyte derangements Pt A/O to self only, non participatory in ROS. She does state that she does still make some urine when asked. Nursing Notes were reviewed. Limitations to history: Outside historians: REVIEW OF SYSTEMS Review of Systems Pertinent positives and negatives as per HPI. PAST MEDICAL HISTORY Medical History[1] SURGICAL HISTORY Surgical History[2] CURRENT MEDICATIONS Previous Medications ATORVASTATIN (LIPITOR) 40 MG TABLET Take 1 tablet (40 mg) by mouth Nightly. CALCIUM ACETATE (PHOSLO) 667 MG TABLET Take 1 tablet by mouth in the morning and 1 tablet at noon and 1 tablet in the evening. Take with meals. CHOLECALCIFEROL (VITAMIN D-3) 125 MCG (5000 UT) CAPSULE Take 5,000 Units by mouth daily. CYCLOBENZAPRINE (FLEXERIL) 5 MG TABLET Take 1 tablet (5 mg) by mouth 3 times daily as needed for muscle spasms for up to 10 days. LEVETIRACETAM (KEPPRA) 500 MG TABLET Take 1 tablet (500 mg) by mouth daily. MECLIZINE (ANTIVERT) 25 MG TABLET Take 1 tablet (25 mg) by mouth 3 times daily as needed for dizziness for up to 10 doses. THIAMINE HCL (VITAMIN B-1) 250 MG TABLET Take 250 mg by mouth daily. ALLERGIES Patient has no known allergies. FAMILY HISTORY Family History[3] SOCIAL HISTORY Social History[4] SCREENINGS [place] Coma Scale Best Eye Response: To verbal stimuli Best Verbal Response: Confused Best Motor Response: Localizes pain Lety Coma Scale Score: 12 Objective: PHYSICAL EXAM ED Triage Vitals Temp Pulse Resp BP -- -- -- -- SpO2 Temp src Heart Rate Source Patient Position -- -- -- -- BP Location FiO2 (%) -- -- Physical Exam Constitutional: General: She is not in acute distress. Appearance: She is ill-appearing and diaphoretic. Cardiovascular: Rate and Rhythm: Tachycardia present. Heart sounds: No murmur heard. No friction rub. No gallop. Pulmonary: Breath sounds: No wheezing, rhonchi or rales. Comments: Tachypnea Abdominal: Tenderness: There is no abdominal tenderness. There is no guarding or rebound. Skin: Comments: Stage III pressure ulcer on L buttock. Draining clear fluid. No surrounding erythema or crepitus Neurological: Mental Status: She is alert. Comments: Oriented to self only. Answers few questions after prompting DIAGNOSTIC RESULTS RADIOLOGY (Per Emergency Physician): Interpretation per the Radiologist below, if available at the time of this note: XR chest 1 view Final Result 1. Bibasilar infiltrates and effusions. 2. Prominence of the interstitial and central pulmonary vasculature consistent with mild to moderate congestive heart failure/fluid overload. 3. Overall improvement in the aeration of the lungs when compared to the previous study. Report Dictated on Electronically Signed By: Honorio Henson MD Electronically Signed Date/Time: 10/22/2024 3:46 PM EDT LABS: Labs Reviewed COMPLETE URINALYSIS WITH REFLEX TO CULTURE - Abnormal Result Value Color, Urine Light Richardson (*) Clarity, Urine Clear pH, Urine 8.5 (*) Leukocytes, Urine Negative Nitrite, Urine Negative Protein, Urine 300 (*) Glucose, Urine Normal Bilirubin, Urine Negative Ketones, Urine Negative Urobilinogen, Urine 6 (*) Blood, Urine Negative RBC, Urine 3-5 (*) WBC, Urine 3-5 Squamous Epithelial, Urine 0-2 Bacteria, Urine Few (*) Mucus, Urine Few Hyaline Casts, Urine 0-2 (*) Granular Casts, Urine 0-2 (*) SPECIFIC GRAVITY OF URINE (NUMERIC) 1.017 Narrative: A specimen with <=10 WBC is not consistent with inflammation. This specimen will not reflex to a urine culture. CBC WITH AUTO DIFFERENTIAL - Abnormal Auto WBC 20.2 (*) RBC 2.44 (*) Hemoglobin 7.2 (*) Hematocrit 22.2 (*) MCV 91.0 MCH 29.5 MCHC 32.4 RDW 15.3 (*) Platelets 363 MPV 10.6 nRBC 0.0 Neutrophils Relative 84.0 (*) Lymphocytes Relative 7.2 (*) Monocytes Relative 6.5 Eosinophils Relative 0.6 Basophils Relative 1.1 Immature Grans % 0.6 Neutrophils Absolute 16.9 (*) Lymphocytes Absolute 1.5 Monocytes Absolute 1.3 (*) Eosinophils Absolute 0.1 Basophils Absolute 0.2 Immature Grans Absolute 0.1 (*) COMPREHENSIVE METABOLIC PANEL - Abnormal SODIUM 135 (*) POTASSIUM 3.1 (*) CHLORIDE 93 (*) CARBON DIOXIDE 26 ANION GAP 16 (*) UREA NITROGEN 28 (*) CREATININE 5.36 (*) GLUCOSE 85 CALCIUM 8.2 (*) AST (SGOT) 37 (*) ALT <6 ALKALINE PHOSPHATASE 161 (*) ALBUMIN 1.4 (*) BILIRUBIN, TOTAL 0.6 TOTAL PROTEIN 6.1 (*) eGFR 7.9 (*) HIGH SENSITIVITY TROPONIN, SERIAL BASELINE - Abnormal Troponin HS Serial Baseline 26 (*) LACTIC ACID WITH REFLEX - Normal LACTIC ACID 1.5 POCT GLUCOSE METER UNSOLICITED RESULTS - Normal Glucose 99 Narrative: Performed by: Haley Kirk, [address] [place] [address] [place] [address] CLIA ID: [id number] BLOOD CULTURE BLOOD CULTURE AEROBIC AND ANAEROBIC CULTURE WITH STAIN Narrative: The following orders were created for panel order Aerobic and Anaerobic Culture with Stain. Procedure Abnormality Status --------- ------ Culture, Aerobic Bacteri...[[id number]] In process Anaerobic culture[[id number]] In process Please view results for these tests on the individual orders. CULTURE, AEROBIC BACTERIA WITH GRAM STAIN CULTURE ANAEROBIC RESPIRATORY PATHOGENS PANEL BY PCR HIGH SENSITIVITY TROPONIN, SERIAL, SECOND TEST All other labs were within normal range or not returned as of this dictation. EMERGENCY DEPARTMENT COURSE and DIFFERENTIAL DIAGNOSIS/MDM: Vitals: Vitals: 10/22/24 1259 10/22/24 1400 10/22/24 1508 10/22/24 1629 BP: (!) 164/78 (!) 204/100 (!) 194/86 BP Location: Right arm Patient Position: Lying Pulse: (!) 120 (!) 118 (!) 115 Resp: 22 14 16 Temp: 37.7 C (99.8 F) (!) 38.3 C (101 F) TempSrc: Axillary Rectal SpO2: 100% 94% 95% Weight: 48.3 kg (106 lb 7.7 oz) The patient presented with a chief complaint of AMS. The differential diagnosis associated with this patient's presentation includes Hypoglycemia, DKA or HHS, electrolyte abnormality, uremia, intracranial hemorrhage, ischemic stroke, intoxication, infection . Our workup consisted of ordering/reviewing bloodwork, EKG, CXR, Urine tests. Medical test interpretation and decision making below. ED Course as of 10/22/24 1635 Sun Oct 22, 2024 1452 Troponin elevated. This is elevated at baseline. Will need to repeat [SC] 1452 There is significant leukocytosis. Lactic is only 1.5. [SC] 1453 Creatinine elevated. Consistent with known end-stage renal disease [SC] 1529 Urinalysis less concerning for source of infection [SC] 1549 XR chest 1 view [SC] ED Course User Index [SC] Tuan Montoya DO Diagnoses as of 10/22/24 1635 Sepsis, due to unspecified organism, unspecified whether acute organ dysfunction present (HCC) Altered mental status, unspecified altered mental status type Buttock wound, left, initial encounter SEP- CORE MEASURE DATA SIRS Criteria Sepsis Criteria Severe Sepsis Criteria Septic Shock Criteria Must meet 2: [x] Temperature > 100.4 F (38 C) or < 96.8 F (36 C) [x] HR > 90 [x] RR > 20 [] WBC > 12 or < 4 or 10% bands Must be confirmed or suspected to move forward with diagnosis of sepsis. Must select at least one: [x] Bacterial Infection Confirmed or Suspected. [] Viral Infection Confirmed or Suspected. [] No infection present. Patient does not meet criteria for Sepsis. Must meet 1: [] Lactate > 2 or [] Signs of Organ Dysfunction: - SBP < 90 or MAP < 65 - Altered mental status - Creatinine > 2 or increased from baseline - Urine Output < 0.5 ml/kg/hr - Bilirubin > 2 - INR > 1.5 - Platelets < 100,000 - Acute Respiratory Failure as evidenced by new need for NIPPV or mechanical ventilation [x] No criteria met for Severe Sepsis. Must meet 1: [] Lactate = or > 4 or [] SBP < 90 or MAP < 65 for at least two readings in the first hour after fluid bolus administration [] No criteria met for Septic Shock. No data found. Recent Labs 10/22/24 1411 WBC 20.2* LACTATE 1.5 CREATININE 5.36* BILITOT 0.6 PLT 363 Sepsis Identified at 1317 Fluid Resuscitation Rational: ESRD on dialysis, concern for fluid overload Infection Source: Unknown Reassessment Exam: Not applicable. Patient does not have Septic Shock. Tuan Montoya DO Patient has sepsis with likely soft tissue versus pulmonary etiology. I discussed the case with the hospitalist who agreed to admit the patient for further relation and treatment External records reviewed: Chronic conditions impacting care: Social determinants of health affecting care: Diagnostic Studies interpreted by me: Discussions with other clinicians: ED Medications managed: Medications sodium chloride 0.9% (NS) flush 5-40 mL (has no administration in time range) sodium chloride 0.9% (NS) flush 5-40 mL (has no administration in time range) sodium chloride 0.9 % infusion (has no administration in time range) vancomycin (Vancocin) 1,000 mg in sodium chloride 0.9 % 250 mL IVPB (has no administration in time range) sodium chloride 0.9 % bolus 500 mL (0 mL IntraVENous Stopped 10/22/24 1522) acetaminophen (Ofirmev) IVPB 1,000 mg (0 mg IntraVENous Stopped 10/22/24 1536) piperacillin-tazobactam (Zosyn) 2,250 mg in sodium chloride 0.9 % 50 mL IVPB Mini-Bag Plus (0 mg IntraVENous Stopped 10/22/24 1522) Prescription drugs considered: PROCEDURES: Unless otherwise noted below, none Procedures FINAL IMPRESSION 1. Sepsis, due to unspecified organism, unspecified whether acute organ dysfunction present (HCC) 2. Altered mental status, unspecified altered mental status type 3. Buttock wound, left, initial encounter DISPOSITION Admit 10/22/2024 04:35:55 PM PATIENT REFERRED TO: No follow-up provider specified. DISCHARGE MEDICATIONS: New Prescriptions No medications on file (Comment: Please note this report has been produced using speech recognition software and may contain errors related to that system including errors in grammar, punctuation, and spelling, as well as words and phrases that may be inappropriate. If there are any questions or concerns please feel free to contact the dictating provider for clarification.) Tuan Montoya DO (electronically signed) Emergency Medicine Provider [1] Past Medical History: Diagnosis Date Chronic kidney disease (CKD) Hemodialysis patient ([facility]/HCC) (HCC) Wednesday, , Wednesday History of blood transfusion 02/27/2022 Hypertension Seizure ([facility]) Developed seizure-like activity on 02/24 during hospital admission [2] Past Surgical History: Procedure Laterality Date AV FISTULA PLACEMENT Left 08/07/2022 COLONOSCOPY N/A 01/25/2024 Performed by Chrissy Gilman MD at [facility] ENDOSCOPY IR CVC TUNNELED DIALYSIS CATHETER PLACEMENT 02/27/2022 IR CVC TUNNELED CATHETER PLACEMENT 02/27/2022 Candis Andrade MD [facility] SPECIAL PROCEDURES IR EMBOLIZATION 01/24/2024 IR EMBOLIZATION 01/24/2024 Jovan Glynn MD [facility] SPECIAL PROCEDURES [3] Family History Problem Relation Name Age of Onset Dementia Mother Stroke Father Prostate cancer Brother 69 Breast cancer Cousin 32 Stomach cancer Mother's Sister 70 [4] Social History Socioeconomic History Marital status: Tobacco Use Smoking status: Never Smokeless tobacco: Never Vaping Use Vaping status: Never Used Substance and Sexual Activity Alcohol use: Yes Alcohol/week: 2.0 standard drinks of alcohol Types: 2 Glasses of wine per week Comment: weekly Drug use: Never Social Drivers of Health Financial Resource Strain: Low Risk (08/31/2024) Received from [facility] Overall Financial Resource Strain (CARDIA) Difficulty of Paying Living Expenses: Not hard at all Food Insecurity: No Food Insecurity (08/31/2024) Received from [facility] Hunger Vital Sign Worried About Running Out of Food in the Last Year: Never true Ran Out of Food in the Last Year: Never true Transportation Needs: No Transportation Needs (08/31/2024) Received from [facility] PRAPARE - Transportation Lack of Transportation (Medical): No Lack of Transportation (Non-Medical): No Intimate Partner Violence: Not At Risk (08/31/2024) Received from [facility] Humiliation, Afraid, Rape, and Kick questionnaire Fear of Current or Ex-Partner: No Emotionally Abused: No Physically Abused: No Sexually Abused: No Housing Stability: Low Risk (08/31/2024) Received from [facility] Housing Stability Vital Sign Unable to Pay for Housing in the Last Year: No Number of Times Moved in the Last Year: 0 Homeless in the Last Year: No Tuan Montoya DO Resident 10/22/24 1636 Cosigned by Veronica Abebe MD at 10/23/2024 3:09 PM EDT Emergency Department Encounter [facility] ED Patient: Apoorva Gonzalez : 1950 Date of Evaluation: 10/22/2024 ED Supervising Physician: Veronica Abebe MD I independently examined and evaluated Apoorva Gonzalez. This will serve as my Supervisory note and shared attestation. I did perform a substantive portion of the visit including all aspects of the Medical Decision Making. I wore appropriate PPE for the entirety of this encounter. In brief, Apoorva Gonzalez is a 74 y.o. that presents to the emergency department with AMS from shelter. Pt is a poor historian. Focused exam: Constitutional: No acute distress HEENT:Head: Atraumatic Eyes: Conjunctivae normal. Neck: Supple CV: Tachy RESP: CTAB, good respiratory effort, no increased wob GI: Abdomen soft, non-tender, non-distended, no guarding MSK: No gross deformity EXTR: Warm and well perfused, no edema SKIN: L buttock pressure ulcer PSYCH: Appropriate affect, cooperative behavior NEURO: Alert, oriented to self, face symmetric, no slurred speech, CN2-12 intact, motor and sensory intact and equal bilaterally. Brief ED course/MDM: Patient appears somewhat ill. Hypertensive. Tachycardic. Initially afebrile but rectal temperature showed fever. Leukocytosis of 20.2. Concern for sepsis. Not in shock. Possible source could be the wound. Given vancomycin IV and Zosyn IV. Tylenol IV for fever. Will admit for continued workup and treatment. ED Course as of 10/22/24 1604 Sun Oct 22, 2024 1452 Troponin elevated. This is elevated at baseline. Will need to repeat [SC] 1452 There is significant leukocytosis. Lactic is only 1.5. [SC] 1453 Creatinine elevated. Consistent with known end-stage renal disease [SC] 1529 Urinalysis less concerning for source of infection [SC] 1549 XR chest 1 view [SC] ED Course User Index [SC] Tuan Montoya, Diagnoses as of 10/22/24 1604 Sepsis, due to unspecified organism, unspecified whether acute organ dysfunction present (HCC) Altered mental status, unspecified altered mental status type Buttock wound, left, initial encounter I personally (separate from CRISTO or resident) spent a total of 32 minutes of critical care time in obtaining history, performing a physical exam, bedside monitoring of interventions, collecting and interpreting tests, and discussion with consultants but not including time spent performing procedures. I personally saw the patient and made/approved the management plan and take responsibility for the patient management. All diagnostic, treatment, and disposition decisions were made by myself in conjunction with the resident. For all further details of the patient's emergency department visit, please see their documentation. (Comment: Please note this report has been produced using speech recognition software and may contain errors related to that system including errors in grammar, punctuation, and spelling, as well as words and phrases that may be inappropriate. If there are any questions or concerns please feel free to contact the dictating provider for clarification.) Veronica Abebe MD [employer] Veronica Abebe MD 10/22/24 1604 documented in this encounter [facility] 09-06-2024 Plan of care note Problem: Pain - Adult Goal: Verbalizes/displays adequate comfort level or baseline comfort level Outcome: Met Problem: Safety - Adult Goal: Free from fall injury Outcome: Met Problem: Discharge Planning Goal: Discharge to home or other facility with appropriate resources Outcome: Met Problem: Chronic Conditions and Co-morbidities Goal: Patient's chronic conditions and co-morbidity symptoms are monitored and maintained or improved Outcome: Met Problem: Nutrition Goal: Nutrient intake appropriate for maintaining nutritional needs Outcome: Met Problem: Pain Goal: Takes deep breaths with improved pain control throughout the shift Outcome: Met Goal: Turns in bed with improved pain control throughout the shift Outcome: Met Goal: Walks with improved pain control throughout the shift Outcome: Met Goal: Performs ADL's with improved pain control throughout shift Outcome: Met Goal: Participates in PT with improved pain control throughout the shift Outcome: Met Goal: Free from opioid side effects throughout the shift Outcome: Met Goal: Free from acute confusion related to pain meds throughout the shift Outcome: Met Problem: Fall/Injury Goal: Not fall by end of shift Outcome: Met Problem: Fall/Injury Goal: Not fall by end of shift Outcome: Met Goal: Be free from injury by end of the shift Outcome: Met Goal: Verbalize understanding of personal risk factors for fall in the hospital Outcome: Met Goal: Verbalize understanding of risk factor reduction measures to prevent injury from fall in the home Outcome: Met Goal: Use assistive devices by end of the shift Outcome: Met Goal: Pace activities to prevent fatigue by end of the shift Outcome: Met The patient's goals for the shift include rest The clinical goals for the shift include Patient will remain safe throughout shift [facility] 09-06-2024 Miscellaneous Notes Problem: Pain - Adult Goal: Verbalizes/displays adequate comfort level or baseline comfort level Outcome: Met Problem: Safety - Adult Goal: Free from fall injury Outcome: Met Problem: Discharge Planning Goal: Discharge to home or other facility with appropriate resources Outcome: Met Problem: Chronic Conditions and Co-morbidities Goal: Patient's chronic conditions and co-morbidity symptoms are monitored and maintained or improved Outcome: Met Problem: Nutrition Goal: Nutrient intake appropriate for maintaining nutritional needs Outcome: Met Problem: Pain Goal: Takes deep breaths with improved pain control throughout the shift Outcome: Met Goal: Turns in bed with improved pain control throughout the shift Outcome: Met Goal: Walks with improved pain control throughout the shift Outcome: Met Goal: Performs ADL's with improved pain control throughout shift Outcome: Met Goal: Participates in PT with improved pain control throughout the shift Outcome: Met Goal: Free from opioid side effects throughout the shift Outcome: Met Goal: Free from acute confusion related to pain meds throughout the shift Outcome: Met Problem: Fall/Injury Goal: Not fall by end of shift Outcome: Met Problem: Fall/Injury Goal: Not fall by end of shift Outcome: Met Goal: Be free from injury by end of the shift Outcome: Met Goal: Verbalize understanding of personal risk factors for fall in the hospital Outcome: Met Goal: Verbalize understanding of risk factor reduction measures to prevent injury from fall in the home Outcome: Met Goal: Use assistive devices by end of the shift Outcome: Met Goal: Pace activities to prevent fatigue by end of the shift Outcome: Met The patient's goals for the shift include rest The clinical goals for the shift include Patient will remain safe throughout shift Apoorva Gonzalez is a 74 y.o. female presenting with pmhx of seizures(on keppra), ESRD on dialysis TTS LUE fistula, and HTN who presented as transfer from [facility] for IR embolization of thigh hematoma. Note patient had a recent hospitalization at [facility] on 08/14 with sudden cardiac arrest, though to be sepsis due to R thigh and anterior hip abscess She underwent CT guided aspiration then I&D in OR, treated with IV Zosyn x7 days then discharged 08/24 to SNF with wound vac. Cultures reported to be negative. She re-presented to [facility] on 08/26 for increased pain in her right thigh. Admission CT showed concern for hematoma versus cellulitis of right thigh and patient was treated with IV Vanco and Zosyn, labs revealed hemoglobin of 6 from a baseline of 8, a CTA was obtained that showed expanding hematoma in right thigh. Patient status post 2 units packed RBC and incrementation to 8.1. Patient was transferred to [facility] for IF embolization of thigh hematoma. IR evaluated the patient and determined that there was not indication for IR embolization; elected to monitor clinically. Patient remained stable with stable H and H. Patient feels that thigh hematoma improving in size. ID consulted and recommended no further abx. Patient received dialysis inpatient with her last treatment on on 09/05 prior to discharge. Patient was discharged home in stable conditioned on 09/06 with home care. Problem: Pain Goal: Takes deep breaths with improved pain control throughout the shift Outcome: Progressing Goal: Turns in bed with improved pain control throughout the shift Outcome: Progressing Goal: Walks with improved pain control throughout the shift Outcome: Progressing Goal: Performs ADL's with improved pain control throughout shift Outcome: Progressing Goal: Participates in PT with improved pain control throughout the shift Outcome: Progressing Goal: Free from opioid side effects throughout the shift Outcome: Progressing Goal: Free from acute confusion related to pain meds throughout the shift Outcome: Progressing Problem: Fall/Injury Goal: Not fall by end of shift Outcome: Progressing Goal: Be free from injury by end of the shift Outcome: Progressing Goal: Verbalize understanding of personal risk factors for fall in the hospital Outcome: Progressing Goal: Verbalize understanding of risk factor reduction measures to prevent injury from fall in the home Outcome: Progressing Goal: Use assistive devices by end of the shift Outcome: Progressing The patient's goals for the shift include rest The clinical goals for the shift include Patient will remain safe and free from falls/injury the whole shift. Over the shift, the patient did make progress toward the following goals. Problem: Pain - Adult Goal: Verbalizes/displays adequate comfort level or baseline comfort level Outcome: Progressing Problem: Safety - Adult Goal: Free from fall injury Outcome: Progressing Problem: Discharge Planning Goal: Discharge to home or other facility with appropriate resources Outcome: Progressing Problem: Chronic Conditions and Co-morbidities Goal: Patient's chronic conditions and co-morbidity symptoms are monitored and maintained or improved Outcome: Progressing Problem: Nutrition Goal: Nutrient intake appropriate for maintaining nutritional needs Outcome: Progressing Problem: Pain Goal: Takes deep breaths with improved pain control throughout the shift Outcome: Progressing Goal: Turns in bed with improved pain control throughout the shift Outcome: Progressing Goal: Walks with improved pain control throughout the shift Outcome: Progressing Goal: Performs ADL's with improved pain control throughout shift Outcome: Progressing Goal: Participates in PT with improved pain control throughout the shift Outcome: Progressing Goal: Free from opioid side effects throughout the shift Outcome: Progressing Goal: Free from acute confusion related to pain meds throughout the shift Outcome: Progressing Problem: Fall/Injury Goal: Not fall by end of shift Outcome: Progressing Goal: Be free from injury by end of the shift Outcome: Progressing Goal: Verbalize understanding of personal risk factors for fall in the hospital Outcome: Progressing Goal: Verbalize understanding of risk factor reduction measures to prevent injury from fall in the home Outcome: Progressing Goal: Use assistive devices by end of the shift Outcome: Progressing Goal: Pace activities to prevent fatigue by end of the shift Outcome: Progressing The patient's goals for the shift include rest The clinical goals for the shift include Pt will remain safe throughout shift Problem: Pain Goal: Takes deep breaths with improved pain control throughout the shift Outcome: Progressing Goal: Turns in bed with improved pain control throughout the shift Outcome: Progressing Goal: Walks with improved pain control throughout the shift Outcome: Progressing Goal: Performs ADL's with improved pain control throughout shift Outcome: Progressing Goal: Free from opioid side effects throughout the shift Outcome: Progressing Goal: Free from acute confusion related to pain meds throughout the shift Outcome: Progressing The patient's goals for the shift include rest The clinical goals for the shift include Patient will be free from fall/injury the whole shift. Over the shift, the patient did not make progress toward the following goals. Problem: Pain - Adult Goal: Verbalizes/displays adequate comfort level or baseline comfort level Outcome: Progressing Problem: Safety - Adult Goal: Free from fall injury Outcome: Progressing Problem: Discharge Planning Goal: Discharge to home or other facility with appropriate resources Outcome: Progressing Problem: Chronic Conditions and Co-morbidities Goal: Patient's chronic conditions and co-morbidity symptoms are monitored and maintained or improved Outcome: Progressing Problem: Nutrition Goal: Nutrient intake appropriate for maintaining nutritional needs Outcome: Progressing Problem: Pain Goal: Takes deep breaths with improved pain control throughout the shift Outcome: Progressing Goal: Turns in bed with improved pain control throughout the shift Outcome: Progressing Goal: Walks with improved pain control throughout the shift Outcome: Progressing Goal: Performs ADL's with improved pain control throughout shift Outcome: Progressing Goal: Participates in PT with improved pain control throughout the shift Outcome: Progressing Goal: Free from opioid side effects throughout the shift Outcome: Progressing Goal: Free from acute confusion related to pain meds throughout the shift Outcome: Progressing Problem: Fall/Injury Goal: Not fall by end of shift Outcome: Progressing Goal: Be free from injury by end of the shift Outcome: Progressing Goal: Verbalize understanding of personal risk factors for fall in the hospital Outcome: Progressing Goal: Verbalize understanding of risk factor reduction measures to prevent injury from fall in the home Outcome: Progressing Goal: Use assistive devices by end of the shift Outcome: Progressing Goal: Pace activities to prevent fatigue by end of the shift Outcome: Progressing The patient's goals for the shift include rest The clinical goals for the shift include Pt will reamin HDS during this shift Problem: Pain - Adult Goal: Verbalizes/displays adequate comfort level or baseline comfort level Outcome: Progressing Problem: Safety - Adult Goal: Free from fall injury Outcome: Progressing Problem: Nutrition Goal: Nutrient intake appropriate for maintaining nutritional needs Outcome: Progressing Problem: Pain Goal: Free from opioid side effects throughout the shift Outcome: Progressing Problem: Fall/Injury Goal: Not fall by end of shift Outcome: Progressing Goal: Be free from injury by end of the shift Outcome: Progressing The patient's goals for the shift include rest The clinical goals for the shift include Pt will remain safe and free from injury during shift Over the shift, the patient did not make progress toward the following goals. Barriers to progression include Problem: Pain - Adult Goal: Verbalizes/displays adequate comfort level or baseline comfort level Outcome: Progressing Problem: Chronic Conditions and Co-morbidities Goal: Patient's chronic conditions and co-morbidity symptoms are monitored and maintained or improved Outcome: Progressing Problem: Nutrition Goal: Nutrient intake appropriate for maintaining nutritional needs Outcome: Progressing Problem: Pain - Adult Goal: Verbalizes/displays adequate comfort level or baseline comfort level Outcome: Progressing The patient's goals for the shift include rest The clinical goals for the shift include Pt will remain safe and free from injury during shift Over the shift, the patient did not make progress toward the following goals. Barriers to progression include Problem: Nutrition Goal: Nutrient intake appropriate for maintaining nutritional needs Outcome: Progressing Problem: Pain - Adult Goal: Verbalizes/displays adequate comfort level or baseline comfort level Outcome: Progressing Problem: Pain - Adult Goal: Verbalizes/displays adequate comfort level or baseline comfort level Outcome: Progressing Problem: Safety - Adult Goal: Free from fall injury Outcome: Progressing Problem: Discharge Planning Goal: Discharge to home or other facility with appropriate resources Outcome: Progressing Problem: Chronic Conditions and Co-morbidities Goal: Patient's chronic conditions and co-morbidity symptoms are monitored and maintained or improved Outcome: Progressing Problem: Nutrition Goal: Nutrient intake appropriate for maintaining nutritional needs Outcome: Progressing Problem: Pain Goal: Takes deep breaths with improved pain control throughout the shift Outcome: Progressing Goal: Turns in bed with improved pain control throughout the shift Outcome: Progressing Goal: Walks with improved pain control throughout the shift Outcome: Progressing Goal: Performs ADL's with improved pain control throughout shift Outcome: Progressing Goal: Participates in PT with improved pain control throughout the shift Outcome: Progressing Goal: Free from opioid side effects throughout the shift Outcome: Progressing Goal: Free from acute confusion related to pain meds throughout the shift Outcome: Progressing Problem: Fall/Injury Goal: Not fall by end of shift Outcome: Progressing Goal: Be free from injury by end of the shift Outcome: Progressing Goal: Verbalize understanding of personal risk factors for fall in the hospital Outcome: Progressing Goal: Verbalize understanding of risk factor reduction measures to prevent injury from fall in the home Outcome: Progressing Goal: Use assistive devices by end of the shift Outcome: Progressing Goal: Pace activities to prevent fatigue by end of the shift Outcome: Progressing The patient's goals for the shift include rest The clinical goals for the shift include Pt will have less pain throughout this shift. Over the shift, the patient did not make progress toward the following goals. Barriers to progression include R leg hematoma. Recommendations to address these barriers include pain medication . The patient's goals for the shift include rest The clinical goals for the shift include decreased pain Problem: Safety - Adult Goal: Free from fall injury Outcome: Progressing Problem: Discharge Planning Goal: Discharge to home or other facility with appropriate resources Outcome: Progressing Problem: Chronic Conditions and Co-morbidities Goal: Patient's chronic conditions and co-morbidity symptoms are monitored and maintained or improved Outcome: Progressing IR consulted for consideration of right thigh hematoma aspiration. Imaging features consistent with hematoma without an obvious suspicious target for infection/abscess aspiration. Problem: Pain - Adult Goal: Verbalizes/displays adequate comfort level or baseline comfort level Outcome: Progressing Problem: Safety - Adult Goal: Free from fall injury Outcome: Progressing Problem: Discharge Planning Goal: Discharge to home or other facility with appropriate resources Outcome: Progressing Problem: Chronic Conditions and Co-morbidities Goal: Patient's chronic conditions and co-morbidity symptoms are monitored and maintained or improved Outcome: Progressing Problem: Nutrition Goal: Nutrient intake appropriate for maintaining nutritional needs Outcome: Progressing Problem: Pain Goal: Takes deep breaths with improved pain control throughout the shift Outcome: Progressing Goal: Turns in bed with improved pain control throughout the shift Outcome: Progressing Goal: Walks with improved pain control throughout the shift Outcome: Progressing Goal: Performs ADL's with improved pain control throughout shift Outcome: Progressing Goal: Participates in PT with improved pain control throughout the shift Outcome: Progressing Goal: Free from opioid side effects throughout the shift Outcome: Progressing Goal: Free from acute confusion related to pain meds throughout the shift Outcome: Progressing Problem: Fall/Injury Goal: Not fall by end of shift Outcome: Progressing Goal: Be free from injury by end of the shift Outcome: Progressing Goal: Verbalize understanding of personal risk factors for fall in the hospital Outcome: Progressing Goal: Verbalize understanding of risk factor reduction measures to prevent injury from fall in the home Outcome: Progressing Goal: Use assistive devices by end of the shift Outcome: Progressing Goal: Pace activities to prevent fatigue by end of the shift Outcome: Progressing The patient's goals for the shift include rest The clinical goals for the shift include Pt will have decreased pain throughout this shift. Over the shift, the patient did not make progress toward the following goals. Barriers to progression include R leg hematoma. Recommendations to address these barriers include surgery and pain medication. The patient's goals for the shift include rest The clinical goals for the shift include pt will remain safe during shift Apoorva Gonzalez is a 74 yo Female with history of ESRD on dialysis, seizures, HTN, HLD, who presented with right thigh hematoma. Patient recently hospitalized at OSH from 08/14-08/24 for sudden cardiac arrest and sepsis, likely 2/2 right thigh/hip abscess, s/p I&D and antibiotics. CTA runoff on 08/29/24 demonstrated right anterior thigh hematoma with findings concerning for active bleeding. Hb was 6.5 which increased to 8 following 2 units pRBC. The case was discussed with Interventional radiology in the morning of 08/30, with plan for transfer to [facility] for potential embolization. The patient arrived to [facility] around 0001 08/31/24. Initial Hb was 7.0, and patient was hemodynamically stable. Decision was made to conservatively manage the patient overnight. Repeat Hb in the morning was 7.2, and the patient continued to be hemodynamically stable. At this point, there is no indication for IR embolization, and conservative management is encouraged. If there is concern for significant active bleeding or acute clinical decompensation, would recommend repeat CTA of the thigh, and to reach out to the interventional radiology service. Reviewed and approved by JUSTINE ROQUE on 08/31/24 at 9:02 AM. Problem: Pain - Adult Goal: Verbalizes/displays adequate comfort level or baseline comfort level Outcome: Progressing Problem: Safety - Adult Goal: Free from fall injury Outcome: Progressing Problem: Discharge Planning Goal: Discharge to home or other facility with appropriate resources Outcome: Progressing Problem: Chronic Conditions and Co-morbidities Goal: Patient's chronic conditions and co-morbidity symptoms are monitored and maintained or improved Outcome: Progressing Problem: Nutrition Goal: Nutrient intake appropriate for maintaining nutritional needs Outcome: Progressing The patient's goals for the shift include rest The clinical goals for the shift include Pt will be safe and free from injury during shift Transfer Acceptance Note - [facility] Receiving Facility: [facility] Accepting Physician: Carine Mejia DO Date/Time: 7:54 AM Patient: Apoorva [place] Sending Facility: [facility] Reason for Transfer: Evaluation and management of acutely bleeding R anterior thigh hematoma requiring IR embolization (not available at sending facility). Dr. Clarke Mckeon from IR at [facility] was contacted and agreed with transfer specifically to [facility] for embolization. Pertinent History: Presentation: Presented from [facility] to [facility] ED with increased right lower extremity pain and swelling, concern for hematoma, ortho and vascular consulted. CTA of lower extremity done showing contrast pooling in hematoma with active bleeding. Vascular recommended urgent transfer for IR embolization. Past Medical History: ESRD on HD (T, Th, Sat), HTN, HLD, chronic anemia. Recent hospitalization at [facility] on 08/14 with sudden cardiac arrest, though to be sepsis due to R thigh and anterior hip abscess, underwent CT guided aspiration then I&D in OR, treated with IV Zosyn x7 days then discharged 08/24 to SNF with wound vac. Recent Findings: Labs: Hgb 6.5 yesterday, transfused 2 units, Hgb today 8.1. Imaging: CTA RLE with pooling in anterior thigh concerning for actively bleeding hematoma Clinical: Swelling and pain, without acute concerns for compartment syndrome but high risk for development if acute bleeding not addressed. Currently also on Vanc/Zosyn since 08/27 for any underlying infection in the R anterior thigh Last HD yesterday (08/29) Vital Signs (at time of conference): BP 144/64, HR 88, RR 16, T 36.5C, SpO2 96% on RA Disposition: Accepted to General Medicine at [facility] for: Management of acute R anterior thigh hematoma with acute blood loss anemia (on chronic anemia) with planned IR embolization at [facility]. Coordination of multidisciplinary evaluation (e.g., IR, vascular surgery, nephrology) Note: Transfer center and sending facility advised to re-contact accepting physician if any clinical deterioration occurs prior to arrival. Hospitalist [facility] documented in this encounter [facility] Work Phone: 09-06-2024 History of Present illness Narrative Occupational Therapy OT Treatment Patient Name: Apoorva Gonzalez Department: [facility] Room: 6013/6013-A Today's Date: 09/06/2024 Time Calculation Start Time: 1140 Stop Time: 1206 Time Calculation (min): 26 min Assessment: OT Assessment: Pt will benefit from continued skilled OT to increase independence in ADLs, functional mobility, activity tolerance, safety, and strength. Prognosis: Excellent Barriers to Discharge Home: No anticipated barriers Evaluation/Treatment Tolerance: Patient tolerated treatment well Medical Staff Made Aware: Yes End of Session Communication: Bedside nurse End of Session Patient Position: Bed, 3 rail up, Alarm off, not on at start of session OT Assessment Results: Decreased ADL status, Decreased upper extremity strength, Decreased safe judgment during ADL, Decreased endurance, Decreased functional mobility, Decreased IADLs Prognosis: Excellent Evaluation/Treatment Tolerance: Patient tolerated treatment well Medical Staff Made Aware: Yes Strengths: Attitude of self Barriers to Participation: Comorbidities Plan: Treatment Interventions: ADL retraining, UE strengthening/ROM, Functional transfer training, Endurance training, Patient/family training, Equipment evaluation/education, Compensatory technique education OT Frequency: 2 times per week OT Discharge Recommendations: Low intensity level of continued care Equipment Recommended upon Discharge: Wheeled walker OT Recommended Transfer Status: Assist of 1 OT - OK to Discharge: Yes (upon medical clearance) Treatment Interventions: ADL retraining, UE strengthening/ROM, Functional transfer training, Endurance training, Patient/family training, Equipment evaluation/education, Compensatory technique education Subjective OT Visit Info: OT Received On: 09/06/24 General Visit Info: General Reason for Referral: ADL safety and disposition Past Medical History Relevant to Rehab: ESRD on dialysis, seizures, HLD, HTN, anemia; Patient admitted on 08/30 as a transfer from [facility] due to right anterior thigh hematoma. Determined to be stable and no surgery performed. Patient was admitted to outside hospital on 08/14 due to sudden cardiac arrest and right high and anterior hip abscess with CT aspiration then I&D on 08/17. was transferred to SNF on 08/24 with wound vac Family/Caregiver Present: No Patient Position Received: Bed, 3 rail up, Alarm off, not on at start of session General Comment: Pt supine in bed upon arrival, agreeable to OT, pt frustrated beginning of session 2/2 prolonged hospital stay, pt educated on and practiced LE dressing using AD to increase independence with homegoing, d/c rec updated from mod to low intensity OT post d/c Precautions: LE Weight Bearing Status: Weight Bearing as Tolerated Medical Precautions: Fall precautions Pain: Pain Assessment Pain Assessment: 0-10 0-10 (Numeric) Pain Score: 5 - Moderate pain Pain Type: Acute pain, Surgical pain Pain Location: Hip Pain Orientation: Right Pain Interventions: Repositioned, Distraction Objective Cognition: Cognition Arousal/Alertness: Appropriate responses to stimuli Orientation Level: Oriented X4 Following Commands: Follows all commands and directions without difficulty Insight: Mild Impulsive: Within functional limits Processing Speed: Within funtional limits Coordination: Movements are Fluid and Coordinated: Yes Activities of Daily Living: UE Dressing UE Dressing Level of Assistance: Independent UE Dressing Where Assessed: Edge of bed UE Dressing Comments: gown management seated EOB LE Dressing LE Dressing: Yes Pants Level of Assistance: Close supervision Sock Level of Assistance: Moderate assistance LE Dressing Where Assessed: Edge of bed LE Dressing Comments: donned pants over B feet seated EOB SBA sit <> stand to elva over hips SBA, doffed R sock SBA, mod A to elva, educated on use of liquefied natural gas plant operator for LE dressing, extended time to complete Bed Mobility/Transfers: Bed Mobility Bed Mobility: Yes Bed Mobility 1 Bed Mobility 1: Supine to sitting, Sitting to supine Level of Assistance 1: Close supervision Bed Mobility Comments 1: HOB slightly elevated Transfers Transfer: Yes Transfer 1 Transfer From 1: Sit to, Stand to Transfer to 1: Stand, Sit Technique 1: Sit to stand, Stand to sit Transfer Device 1: Walker Transfer Level of Assistance 1: Close supervision Trials/Comments 1: 3x trials, VCs for hand placement Functional Mobility: Functional Mobility Functional Mobility Performed: Yes Functional Mobility 1 Surface 1: Level tile Device 1: Rolling walker Assistance 1: Close supervision Comments 1: max hosuehold Sitting Balance: Static Sitting Balance Static Sitting-Balance Support: Feet supported Static Sitting-Level of Assistance: Independent Dynamic Sitting Balance Dynamic Sitting-Balance Support: Feet supported Dynamic Sitting-Level of Assistance: Independent Standing Balance: Static Standing Balance Static Standing-Balance Support: Bilateral upper extremity supported Static Standing-Level of Assistance: Close supervision Dynamic Standing Balance Dynamic Standing-Balance Support: Bilateral upper extremity supported Dynamic Standing-Level of Assistance: Close supervision Modalities: Modalities Used: No Therapy/Activity: Therapeutic Activity Therapeutic Activity Performed: Yes Therapeutic Activity 1: bed mobility, transfers, functional mobility Outcome Measures:[facility] Daily Activity Putting on and taking off regular lower body clothing: A lot Bathing (including washing, rinsing, drying): A little Putting on and taking off regular upper body clothing: A little Toileting, which includes using toilet, bedpan or urinal: A little Taking care of personal grooming such as brushing teeth: A little Eating Meals: None Daily Activity - Total Score: 18 Education Documentation Body Mechanics, taught by Cholo Bailey OT at 09/06/2024 2:06 PM. Learner: Patient Readiness: Acceptance Method: Explanation Response: Verbalizes Understanding Comment: OT POC, d/c rec, safety, ADLs Precautions, taught by Cholo Bailey OT at 09/06/2024 2:06 PM. Learner: Patient Readiness: Acceptance Method: Explanation Response: Verbalizes Understanding Comment: OT POC, d/c rec, safety, ADLs ADL Training, taught by Cholo Bailey OT at 09/06/2024 2:06 PM. Learner: Patient Readiness: Acceptance Method: Explanation Response: Verbalizes Understanding Comment: OT POC, d/c rec, safety, ADLs Education Comments No comments found. Goals: Encounter Problems Encounter Problems (Active) ADLs Patient will demonstrate lower body dressing with modified independent level of assistancedonning and doffing all LE clothes with PRN adaptive equipment (Progressing) Start: 09/04/24 Expected End: 09/25/24 BALANCE pt will demonstrate dynamic standing greater than 8 mins with 1-2 UE release at mod I in prep for cooking and bathing tasks (Progressing) Start: 09/04/24 Expected End: 09/25/24 EXERCISE/STRENGTHENING pt will be IND with BUE HEP for increasing functional strength and activity tolerance required for ADL completion (Progressing) Start: 09/04/24 Expected End: 09/25/24 MOBILITY pt will safely demonstrate functional mobility, to/from bathroom and at other household distances, navigating around environmental barriers with LRD and mod I (Progressing) Start: 09/04/24 Expected End: 09/25/24 Cholo Bailey OTR/L Apoorva Gonzalez is a 74 y.o. female on day 7 of admission presenting with Hematoma. Subjective Pt sitting on side of bed. Denies sob, n/v/d, fever, cough, chills, pain, chest pains, light head, dizziness, constipation Objective Physical Exam Vitals and nursing note reviewed. Cardiovascular: Rate and Rhythm: Normal rate and regular rhythm. Comments: SR 78 Pulmonary: Comments: Ariel lung sounds dim POX 99% room air Abdominal: Palpations: Abdomen is soft. Comments: Non-tender to palpation Genitourinary: Comments: States make urine Musculoskeletal: Comments: Rt thigh [id number] intact Ble without edema Skin: General: Skin is warm and dry. Neurological: General: No focal deficit present. Mental Status: She is alert and oriented to person, place, and time. Psychiatric: Mood and Affect: Mood normal. Behavior: Behavior normal. Last Recorded Vitals Blood pressure 154/69, pulse 82, temperature 36.6 C (97.9 F), resp. rate 15, height 1.63 m (5' 4.17), weight 51.8 kg (114 lb 3.2 oz), SpO2 99%. Intake/Output last 3 Shifts: I/O last 3 completed shifts: In: 1390 (26.8 mL/kg) [P.O.:1190; I.V.:200 (3.9 mL/kg)] Out: 0 (0 mL/kg) Weight: 51.8 kg Relevant Results Scheduled medications amLODIPine, 5 mg, oral, Daily atorvastatin, 40 mg, oral, Nightly cholecalciferol, 125 mcg, oral, Daily sodium zirconium cyclosilicate, 10 g, oral, Once per day on Wednesday thiamine, 100 mg, oral, Daily vitamin B complex-vitamin C-folic acid, 1 capsule, oral, Daily Continuous medications PRN medications PRN medications: HYDROmorphone, meclizine Results for orders placed or performed during the hospital encounter of 08/30/24 (from the past 24 hours) CBC Result Value Ref Range WBC 7.9 4.4 - 11.3 x10*3/uL nRBC 0.0 0.0 - 0.0 /100 WBCs RBC 2.47 (L) 4.00 - 5.20 x10*6/uL Hemoglobin 7.6 (L) 12.0 - 16.0 g/dL Hematocrit 24.9 (L) 36.0 - 46.0 % MCV 101 (H) 80 - 100 fL MCH 30.8 26.0 - 34.0 pg MCHC 30.5 (L) 32.0 - 36.0 g/dL RDW 15.5 (H) 11.5 - 14.5 % Platelets 488 (H) 150 - 450 x10*3/uL Renal Function Panel Result Value Ref Range Glucose 118 (H) 74 - 99 mg/dL Sodium 143 136 - 145 mmol/L Potassium 3.9 3.5 - 5.3 mmol/L Chloride 100 98 - 107 mmol/L Bicarbonate 31 21 - 32 mmol/L Anion Gap 16 10 - 20 mmol/L Urea Nitrogen 35 (H) 6 - 23 mg/dL Creatinine 5.52 (H) 0.50 - 1.05 mg/dL eGFR 8 (L) >60 mL/min/1.73m*2 Calcium 8.1 (L) 8.6 - 10.6 mg/dL Phosphorus 2.2 (L) 2.5 - 4.9 mg/dL Albumin 3.2 (L) 3.4 - 5.0 g/dL Assessment & Plan Hematoma Tolerated hemodialysis yesterday with net fluid loss 2L Bp slight high with tx (141/66-175/68) euvolemic on exam and has stable electrolytes . K+=4.1.. Lokelma 10g non-dialysis days.. will cont to monitor Outpatient Dialysis schedule: [facility] Access: lt fist- no issues - able to achieve BFR 400 Anemia of ESRD: 09/01-epoetin miller-epbx (Retacrit) injection 10,000 Units .. Current hgb 7.6.. will cont to monitor.. 09/01-s/p 1 unit prbc.. 09/06-1x dose 10,000 units Epo prior to d/c CKD-MBD Phosphate Binder:cholecalciferol (Vitamin D-3) tablet 125 mcg daily, vitamin B complex-vitamin C-folic acid (Nephrocaps) capsule 1 capsule , daily, thiamine (Vitamin B-1) tablet 100 mg daily, Phos level at 2.2.. will cont to monitor.. (not on phos binders) Plan HD tomorrow with UF as tolerated Renal diet Please obtain daily standing wt (if possible) Medication to be adjusted for ESRD Patient to continue regular HD schedule while inpatient and to follow with the outpatient millinery copyist at discharge MAYANK Longo 09/06/24 1311 Discharge Planning Home or Post Acute Services In home services Expected Discharge Disposition Home H Does the patient need discharge transport arranged? No Insurance denied auth to SNF. Patient agreeable to home care. MD will place home care orders. [facility] Dialysis center informed patient will return tomorrow. Brother will provide transportation home and to dialysis tomorrow. [facility] can accept. They are home care services that are offered through her insurance. Final home care orders and AVS sent to agency. Ann Sheridan RN, BSN Transitional Liquor Store Manager Name: Apoorva Gonzalez Age: 74 y.o. Date of Admission: 09/05/2024 Subjective No acute events overnight. No concerns today. Objective Vitals: 09/05/24 1030 09/05/24 1050 09/05/24 1100 09/05/24 1135 BP: 168/83 141/66 145/64 Pulse: 106 68 95 99 Resp: Temp: 36 C (96.8 F) 36.9 C (98.4 F) TempSrc: Temporal SpO2: 97% Weight: Height: I/O last 3 completed shifts: In: 820 (15.8 mL/kg) [P.O.:820] Out: - (0 mL/kg) Weight: 51.8 kg I/O this shift: In: 440 [P.O.:240; I.V.:200] Out: - Wt Readings from Last 3 Encounters: 08/31/24 51.8 kg (114 lb 3.2 oz) 08/30/24 52.4 kg (115 lb 8.3 oz) 08/15/24 50 kg (110 lb 3.7 oz) Body mass index is 19.5 kg/m . Physical Exam Gen: Alert, well appearing, in NAD Head/Neck: normocephalic, atraumatic Eyes: anicteric sclerae, noninjected conjunctivae Nose: No congestion or rhinorrhea Mouth: MMM, oropharynx without erythema or lesions Heart: RRR, no murmurs, rubs, or gallops Lungs: No increased work of breathing, lungs clear bilaterally, no wheezing, crackles, rhonchi Abdomen: soft, NT, ND, no HSM, no palpable masses, good bowel sounds Musculoskeletal: no joint swelling Extremities: WWP, cap refill <2sec Neurologic: Alert, symmetrical facies, phonates clearly Skin: no rashes Psychological: appropriate mood/affect Labs Results from last 7 days Lab Units 09/05/24 0711 09/04/24 1217 09/03/24 0634 SODIUM mmol/L 137 136 139 POTASSIUM mmol/L 4.5 4.1 4.3 CHLORIDE mmol/L 98 94* 98 CO2 mmol/L 27 30 33* BUN mg/dL 61* 58* 28* CREATININE mg/dL 7.78* 6.79* 4.58* GLUCOSE mg/dL 92 171* 87 CALCIUM mg/dL 8.0* 8.7 7.8* Results from last 7 days Lab Units 09/05/24 0710 09/03/24 0634 09/02/24 1804 WBC AUTO x10*3/uL 7.0 9.6 9.3 HEMOGLOBIN g/dL 7.2* 8.0* 8.8* HEMATOCRIT % 22.5* 26.0* 28.8* PLATELETS AUTO x10*3/uL 404 429 430 Results from last 7 days Lab Units 08/31/24 0051 APTT seconds 25* INR 1.0 Microbiology No results found for the last 90 days. Radiology Consult to Interventional Radiology (Results Pending) Medications Scheduled medications Scheduled Medications[1] Continuous medications Continuous Medications[2] PRN medications PRN Medications[3] Assessment and Plan: Patient is a 74 year old female with medical history including ESRD on dialysis and HTN with recent admission at OSH from 08/14-08/24 for sudden cardiac arrest and sepsis, likely 2/2 right thigh/hip abscess, s/p I&D and antibiotics who presents [facility] on 08/30 for R thigh hematoma. IR consulted and not recommending IR embolization. Serial H/H. #. Rt Thigh hematoma s/p abscess drainage #Right anterior thigh cellulitis and hematoma - Recent hospitalization at [facility] on 08/14 with sudden cardiac arrest, though to be sepsis due to R thigh and anterior hip abscess, underwent CT guided aspiration then I&D in OR, treated with IV Zosyn x7 days then discharged 08/24 to SNF with wound vac. - ID consulted and signed off, no further antibiotics recommended. Stopped on 09/01, no fevers since that time, WBC - CBC slowly downtrending, follow up tomorrow #ESRD on dialysis - LUE fistula - TT - consult nephro for HD - [facility] 10 on non dialysis days #acute on chronic anemia- due to blood loss - anemia of chronic disease due to ESRD #hx of seizures cw keppra Code Status: Full DVT ppx: on hold due to active bleeding Disp: PT/OT I spent 45 minutes in the care of this patient including calling family, chart review, examining patient, and appropriate documentation and clinical results. [1] amLODIPine, 5 mg, oral, Daily atorvastatin, 40 mg, oral, Nightly cholecalciferol, 125 mcg, oral, Daily epoetin miller or biosimilar, 10,000 Units, intravenous, Once per day on Wednesday sodium zirconium cyclosilicate, 10 g, oral, Once per day on Wednesday thiamine, 100 mg, oral, Daily vitamin B complex-vitamin C-folic acid, 1 capsule, oral, Daily [2] [3] PRN medications: HYDROmorphone, meclizine 09/05/24 1136 Discharge Planning Home or Post Acute Services Post acute facilities (Rehab/SNF/etc) ([facility]) Type of Post Acute Facility Services shelter Expected Discharge Disposition SNF Does the patient need discharge transport arranged? Yes RoundTrip coordination needed? Yes Precert is still pending to [facility]. Confirmed with facility that they offer dialysis onsite. Anticipating discharge today vs tomorrow. Will continue to follow for updates. Ann Sheridan RN, BSN Transitional Liquor Store Manager Renal Staff HD Note I visited and examined the patient on dialysis. Tolerating treatment without event. Labs: BP Readings from Last 3 Encounters: 09/05/24 156/70 08/30/24 134/68 08/15/24 115/62 Lab Results Component Value Date CREATININE 7.78 (H) 09/05/2024 BUN 61 (H) 09/05/2024 NA 137 09/05/2024 K 4.5 09/05/2024 CL 98 09/05/2024 CO2 27 09/05/2024 Lab Results Component Value Date CALCIUM 8.0 (L) 09/05/2024 PHOS 2.3 (L) 09/05/2024 @ Lab Results Component Value Date HGB 7.2 (L) 09/05/2024 Meds: amLODIPine, 5 mg, Daily atorvastatin, 40 mg, Nightly cholecalciferol, 125 mcg, Daily epoetin miller or biosimilar, 10,000 Units, Once per day on Wednesday sodium zirconium cyclosilicate, 10 g, Once per day on Wednesday thiamine, 100 mg, Daily vitamin B complex-vitamin C-folic acid, 1 capsule, Daily HYDROmorphone, 1 mg, q6h PRN meclizine, 25 mg, TID PRN @medscheduled@ PRN Medications[1] Prior to Admission Medications Prescriptions Last Dose Informant Patient Reported? Taking? OMEGA-3 FATTY ACIDS ORAL Other Yes No Sig: Take 1,000 mg by mouth once daily. acetaminophen (Tylenol) 325 mg tablet Other Yes No Sig: Take 2 tablets (650 mg) by mouth every 6 hours if needed (elevated temperature >100 degress and general discomfort). amLODIPine (Norvasc) 5 mg tablet Other Yes No Sig: Take 1 tablet (5 mg) by mouth once daily. atorvastatin (Lipitor) 40 mg tablet Other Yes No Sig: Take 1 tablet (40 mg) by mouth once daily at bedtime. cholecalciferol, vitamin D3, (D3-5000 ORAL) Other Yes No Sig: Take 1 tablet by mouth once daily. levETIRAcetam (Keppra) 500 mg tablet Other Yes No Sig: Take 1 tablet (500 mg) by mouth once daily. meclizine (Antivert) 25 mg tablet Other Yes No Sig: Take 1 tablet (25 mg) by mouth 3 times a day as needed for dizziness. sodium zirconium cyclosilicate (Lokelma) 10 gram packet Other Yes No Sig: Take 10 g by mouth 3 (three) times a week. Mon/wed/wed thiamine (Vitamin B-1) 250 mg tablet Other Yes No Sig: Take 1 tablet (250 mg) by mouth once daily. Facility-Administered Medications: None Current Medications[2] Images: ASSESSMENT AND PLAN: -Continue treatment per submitted orders Brandt Aaron MD Senior Attending Physician Director of Onco-Nephrology Program Division of Nephrology & Hypertension [facility] [1] PRN medications: HYDROmorphone, meclizine [2] Current Facility-Administered Medications Medication Dose Route Frequency Provider Last Rate Last Admin amLODIPine (Norvasc) tablet 5 mg 5 mg oral Daily Teodoro Toscano MD 5 mg at 09/04/24 08 atorvastatin (Lipitor) tablet 40 mg 40 mg oral Nightly Teodoro Toscano MD 40 mg at 09/04/242103 cholecalciferol (Vitamin D-3) tablet 125 mcg 125 mcg oral Daily Cory Montelongo MD 125 mcg at 09/04/24820 epoetin miller (Epogen) injection 10,000 Units 10,000 Units intravenous Once per day on Wednesday Cristina Stack APRN-AGENCY TRAINER HYDROmorphone (Dilaudid) tablet 1 mg 1 mg oral q6h PRN Arsenio Lombardo MD 1 mg at 09/05/24 05 meclizine (Antivert) tablet 25 mg 25 mg oral TID PRN Cory Montelongo MD sodium zirconium cyclosilicate (Lokelma) packet 10 g 10 g oral Once per day on Wednesday Teodoro Toscano MD 10 g at 09/04/24820 thiamine (Vitamin B-1) tablet 100 mg 100 mg oral Daily Cory Montelongo MD 100 mg at 09/04/24820 vitamin B complex-vitamin C-folic acid (Nephrocaps) capsule 1 capsule 1 capsule oral Daily Teodoro Toscano MD 1 capsule at 09/04/24820 Apoorva Gonzalez is a 74 y.o. female on day 5 of admission presenting with Hematoma. Subjective Pt sitting on side of bed. Denies sob, n/v/d, fever, cough, chills, pain, chest pains, light head, dizziness, constipation Objective Physical Exam Vitals and nursing note reviewed. Cardiovascular: Rate and Rhythm: Normal rate and regular rhythm. Pulmonary: Comments: Ariel lung sounds dim POX 99% room air Abdominal: Palpations: Abdomen is soft. Comments: Non-tender to palpation Genitourinary: Comments: States make urine Musculoskeletal: Comments: Rt thigh kfihyloae-smsbncxk-saoajdfy intact Ble without edema Skin: General: Skin is warm and dry. Neurological: General: No focal deficit present. Mental Status: She is alert and oriented to person, place, and time. Psychiatric: Mood and Affect: Mood normal. Behavior: Behavior normal. Last Recorded Vitals Blood pressure 152/64, pulse 97, temperature 36.9 C (98.4 F), resp. rate 16, height 1.63 m (5' 4.17), weight 51.8 kg (114 lb 3.2 oz), SpO2 99%. Intake/Output last 3 Shifts: I/O last 3 completed shifts: In: 820 (15.8 mL/kg) [P.O.:820] Out: 1 (0 mL/kg) [Urine:1 (0 mL/kg/hr)] Weight: 51.8 kg Relevant Results Scheduled medications amLODIPine, 5 mg, oral, Daily atorvastatin, 40 mg, oral, Nightly cholecalciferol, 125 mcg, oral, Daily sodium zirconium cyclosilicate, 10 g, oral, Once per day on Wednesday thiamine, 100 mg, oral, Daily vitamin B complex-vitamin C-folic acid, 1 capsule, oral, Daily Continuous medications PRN medications PRN medications: HYDROmorphone, meclizine Results for orders placed or performed during the hospital encounter of 08/30/24 (from the past 24 hours) CBC and Auto Differential Result Value Ref Range WBC RBC Hemoglobin Hematocrit MCV MCHC RDW Platelets Neutrophils % Immature Granulocytes %, Automated Lymphocytes % Monocytes % Eosinophils % Basophils % Neutrophils Absolute Lymphocytes Absolute Monocytes Absolute Eosinophils Absolute Basophils Absolute Basic metabolic panel Result Value Ref Range Glucose 171 (H) 74 - 99 mg/dL Sodium 136 136 - 145 mmol/L Potassium 4.1 3.5 - 5.3 mmol/L Chloride 94 (L) 98 - 107 mmol/L Bicarbonate 30 21 - 32 mmol/L Anion Gap 16 10 - 20 mmol/L Urea Nitrogen 58 (H) 6 - 23 mg/dL Creatinine 6.79 (H) 0.50 - 1.05 mg/dL eGFR 6 (L) >60 mL/min/1.73m*2 Calcium 8.7 8.6 - 10.6 mg/dL Assessment & Plan Hematoma Tolerated hemodialysis yesterday with net fluid loss 1.5L Bp slight high with tx (128/73-164/74) euvolemic on exam and has stable electrolytes . K+=4.1 Outpatient Dialysis schedule: TTS [facility]aitan Access: lt fist- no issues - able to achieve BFR 400 Anemia of ESRD: 09/01-epoetin miller-epbx (Retacrit) injection 10,000 Units .. Current hgb 8.0.. will cont to monitor.. 09/01-s/p 1 unit prbc CKD-MBD Phosphate Binder:cholecalciferol (Vitamin D-3) tablet 125 mcg daily, vitamin B complex-vitamin C-folic acid (Nephrocaps) capsule 1 capsule , daily, thiamine (Vitamin B-1) tablet 100 mg daily Plan HD tomorrow with UF as tolerated Renal diet Please obtain daily standing wt (if possible) Medication to be adjusted for ESRD Patient to continue regular HD schedule while inpatient and to follow with the outpatient millinery copyist at discharge MAYANK Longo 09/04/24 Transitional Liquor Store Manager Notes: Transitional Care Coordination Progress Note: Patient discussed during interdisciplinary rounds. Team members present: MD and TCC Plan per Medical/Surgical team: PT/OT is recommending moderate intensity therapy. Patient is agreeable and would like to return to [facility]. Referral placed with facility. Will continue to follow for updates. [id number] Updates: precert started by [facility]. Will continue to follow for updates. Payor: [employer] Discharge disposition: SNF Potential Barriers: none ADOD: 1-3 days Assessment & Plan Hematoma Ann Sheridan RN Physical Therapy Physical Therapy Physical Therapy Evaluation Patient Name: Apoorva Gonzalez Today's Date: 09/04/2024 Time Calculation Start Time: 843 Stop Time: 857 Time Calculation (min): 14 min 6013/6013-A Assessment/Plan PT Assessment PT Assessment Results: Decreased strength, Decreased range of motion, Impaired balance, Decreased mobility Rehab Prognosis: Good Barriers to Discharge Home: Caregiver assistance, Physical needs Caregiver Assistance: Patient lives alone and/or does not have reliable caregiver assistance Physical Needs: Ambulating household distances limited by function/safety, Intermittent mobility assistance needed, Intermittent ADL assistance needed Evaluation/Treatment Tolerance: Patient tolerated treatment well Strengths: Attitude of self Barriers to Participation: Comorbidities Assessment Comment: Patient presents with decreased right LE strength and ROM impairing functional mobility and requring new use of wheeled walker (no device prior). Patient has limited assist at home. Presents at high saxena risk based on balance assessment. Recommend continued PT to address functional impairments and facilitate increased indep with mobility End of Session Patient Position: Bed, 2 rail up, Alarm off, not on at start of session IP OR SWING BED PT PLAN Inpatient or Swing Bed: Inpatient PT Plan Treatment/Interventions: Bed mobility, Transfer training, Balance training, Therapeutic exercise, Therapeutic activity, Range of motion, Strengthening, Home exercise program PT Plan: Ongoing PT PT Frequency: 4 times per week PT Discharge Recommendations: Moderate intensity level of continued care Equipment Recommended upon Discharge: Wheeled walker PT Recommended Transfer Status: Assist x1 PT - OK to Discharge: Yes (when medically appropriate) Subjective Current Problem: 1. Hematoma Problem List[1] General Visit Information: General Reason for Referral: impaired mobility Referred By: Dr Toscano 09/02 Past Medical History Relevant to Rehab: ESRD on dialysis, seizures, HLD, HTN, anemia Family/Caregiver Present: No Co-Treatment: OT Co-Treatment Reason: facilitate safe functional mobility Prior to Session Communication: Bedside nurse Patient Position Received: Bed, 2 rail up, Alarm off, not on at start of session General Comment: Patient admitted on 08/30 as a transfer from [facility] due to right anterior thigh hematoma. Determined to be stable and no surgery performed. Patient was admitted to outside hospital on 08/14 due to sudden cardiac arrest and right high and anterior hip abscess with CT aspiration then I&D on 08/17. was transferred to SNF on 08/24 with wound vac Home Living: Home Living Home Living Comments: Lives alone in second floor apartment with elevator access. Drives. Tub shower. No adapative equipment Prior Level of Function: Prior Function Per Pt/Caregiver Report Prior Function Comments: Patient was indep with all mobility, ADLS and IADLs. Grandson's are available to cloth picker groceries for her. States she can have friends drive her to dialysis if needed. Precautions: Precautions LE Weight Bearing Status: Weight Bearing as Tolerated Medical Precautions: Fall precautions Vital Signs: Objective Pain: Pain Assessment Pain Assessment: 0-10 0-10 (Numeric) Pain Score: 0 - No pain (reports she recently had pain medication and pain is well controlled) Cognition: Cognition Overall Cognitive Status: Within Functional Limits General Assessments: Activity Tolerance Endurance: Endurance does not limit participation in activity Sensation Sensation Comment: no reports of numbness of tingling Postural Control Postural Control: Within Functional Limits Static Standing Balance Static Standing-Comment/Number of Minutes: good sitting balance Dynamic Standing Balance Dynamic Standing-Comments: Tinetti performed Tinetti score: balance: 9/16, gait: /12. Combined score 15/28 indicating high risk for falls Functional Assessments: Bed Mobility Bed Mobility: Yes Bed Mobility 1 Bed Mobility 1: Supine to sitting, Sitting to supine Level of Assistance 1: Close supervision Bed Mobility Comments 1: Unable to lift right leg into/out of bed. Uses UEs to lift leg. Would benefit from leg passenger flagman Transfers Transfer: Yes Transfer 1 Technique 1: Sit to stand, Stand to sit Transfer Device 1: Walker Transfer Level of Assistance 1: Contact guard Trials/Comments 1: Able to perform sit to stand with walker for support. Patient with decreased balance without walker present. Keeps right knee in partial extension during sit to stand due to pain with knee flexed. Ambulation/Gait Training Ambulation/Gait Training Performed: Yes Ambulation/Gait Training 1 Surface 1: Level tile Device 1: Rolling walker Assistance 1: Contact guard Quality of Gait 1: Decreased step length, Antalgic Comments/Distance (ft) 1: patient requires walker for ambulation and is unable to attempt ambulation without device. Patient with decreased weight bearing on right LE during stance phase. Decreased step length on left due to decreased stance on right. Able to perform step through gait with cues. Cues for sequencing during ambulation and for safety with turns Extremity/Trunk Assessments: RUE RUE : Within Functional Limits LUE LUE: Within Functional Limits RLE RLE : Exceptions to WFL (ankle DF intact. Knee extension 3-/5, knee flexion 3-/5, hip flexion 3-/5. Knee flexion ROM limited to 70 degrees.) LLE LLE : Within Functional Limits Outcome Measures: [facility] Basic Mobility Turning from your back to your side while in a flat bed without using bedrails: A little Moving from lying on your back to sitting on the side of a flat bed without using bedrails: A little Moving to and from bed to chair (including a wheelchair): A little Standing up from a chair using your arms (e.g. wheelchair or bedside chair): A little To walk in hospital room: A little Climbing 3-5 steps with railing: Total Basic Mobility - Total Score: 16 Goals: Encounter Problems Encounter Problems (Active) PT Problem Patient will perform bed mobility without bed rails from flat bed indep (Progressing) Start: 09/04/24 Expected End: 09/18/24 Patient will perform functional transfers modified indep (Progressing) Start: 09/04/24 Expected End: 09/18/24 Patient will ambulate 100' with wheeled walker and SBA with equal step length (Progressing) Start: 09/04/24 Expected End: 09/18/24 Improve right knee flexion ROM to 90 degrees (Progressing) Start: 09/04/24 Expected End: 09/18/24 Pain - Adult Education Documentation Home Exercise Program, taught by Jelly Ortega PT at 09/04/2024 9:44 AM. Learner: Patient Readiness: Acceptance Method: Explanation Response: Verbalizes Understanding, Needs Reinforcement Comment: frequent ankle pumps, safe use of walker, transfer techniques, knee flexion to tolerance Mobility Training, taught by Jelly Ortega PT at 09/04/2024 9:44 AM. Learner: Patient Readiness: Acceptance Method: Explanation Response: Verbalizes Understanding, Needs Reinforcement Comment: frequent ankle pumps, safe use of walker, transfer techniques, knee flexion to tolerance Education Comments No comments found. [1] Patient Active Problem List Diagnosis Hematoma Occupational Therapy Evaluation Patient Name: Apoorva Gonzalez Department: [place] [id number] Room: 60/6013- Today's Date: 09/04/2024 Time Calculation Start Time: 08 Stop Time: 58 Time Calculation (min): 14 min Assessment: OT Assessment: Pt presents to OT with increased falls risk, decreased safety and independence with functional transfers and mobility and impaired ADL performance. Pt will continue to benefit from skilled OT services to address deficits and facilitate safe return to PLOF and home environment. Prognosis: Good Barriers to Discharge Home: Caregiver assistance, Physical needs Caregiver Assistance: Patient lives alone and/or does not have reliable caregiver assistance Physical Needs: High falls risk due to function or environment, Intermittent ADL assistance needed (pain limiting ADLs) Evaluation/Treatment Tolerance: Patient tolerated treatment well Medical Staff Made Aware: Yes End of Session Communication: Bedside nurse End of Session Patient Position: Bed, 3 rail up, Alarm off, not on at start of session OT Assessment Results: Decreased ADL status, Decreased upper extremity strength, Decreased safe judgment during ADL, Decreased endurance, Decreased functional mobility, Decreased IADLs Prognosis: Good Evaluation/Treatment Tolerance: Patient tolerated treatment well Medical Staff Made Aware: Yes Plan: Treatment Interventions: ADL retraining, Functional transfer training, UE strengthening/ROM, Endurance training, Patient/family training, Equipment evaluation/education, Compensatory technique education, Continued evaluation OT Frequency: 3 times per week OT Discharge Recommendations: Moderate intensity level of continued care Equipment Recommended upon Discharge: (shower chair, hip kit) OT Recommended Transfer Status: Assist of 1 OT - OK to Discharge: Yes Treatment Interventions: ADL retraining, Functional transfer training, UE strengthening/ROM, Endurance training, Patient/family training, Equipment evaluation/education, Compensatory technique education, Continued evaluation Subjective Current Problem: 1. Hematoma OT Visit Info: OT Received On: 09/04/24 General: General Reason for Referral: ADL safety and disposition Past Medical History Relevant to Rehab: ESRD on dialysis, seizures, HLD, HTN, anemia; Patient admitted on 08/30 as a transfer from [facility] due to right anterior thigh hematoma. Determined to be stable and no surgery performed. Patient was admitted to outside hospital on 08/14 due to sudden cardiac arrest and right high and anterior hip abscess with CT aspiration then I&D on 08/17. was transferred to SNF on 08/24 with wound vac Co-Treatment: PT Co-Treatment Reason: to maximize pt safety and therapeutic potential in order to faciltiate timely d/c planning with request for ROSALEE evals Prior to Session Communication: Bedside nurse Patient Position Received: Bed, 3 rail up, Alarm off, not on at start of session General Comment: Met in bed, pleasant and cooperative, willing to participate, hopeful to d/c to SNF prior to returning home Precautions: LE Weight Bearing Status: Weight Bearing as Tolerated Medical Precautions: Fall precautions Date/Time Vitals Session Patient Position Pulse Resp SpO2 BP MAP (mmHg) 09/04/24 08:21:53 -- -- 86 16 100 % 155/83 107 09/04/24 0845 Pre OT -- 89 -- -- -- -- 09/04/24 0850 During OT -- 107 -- -- -- -- 09/04/24 0858 Post OT -- 99 -- -- -- -- Pain: Pain Assessment Pain Assessment: (pt denies pain throughout session at rest or during mobility/activity, states pre-medicated however pain limits ROM to RLE and ability to perform ADLs however when asked pt denies pain on scale 0-10) Objective Cognition: Overall Cognitive Status: Within Functional Limits Arousal/Alertness: Appropriate responses to stimuli Orientation Level: Oriented X4 Following Commands: Follows one step commands without difficulty Cognition Comments: somewhat flat/guarded affect Insight: Mild Home Living: Type of Home: Apartment Lives With: Alone Home Adaptive Equipment: None Home Layout: One level Home Access: Elevator (2nd floor-typically ascends stairs) Bathroom Shower/Tub: Tub/shower unit Bathroom Equipment: None Prior Function: Level of [place]: Independent with ADLs and functional transfers, Independent with homemaking with ambulation Receives Help From: Family (grandsons obtain groceries) ADL Assistance: Independent Homemaking Assistance: Independent Ambulatory Assistance: Independent Vocational: Retired Prior Function Comments: denies falls, endorses very limited support from grandsons IADL History: Current License: Yes Mode of Transportation: Car 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: 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 ADL: Eating Assistance: Independent Grooming Assistance: (CGA) Grooming Deficit: (for BUE release to engage at sink) Bathing Assistance: Moderate (anticipated) UE Dressing Assistance: Stand by (anticipated) UE Dressing Deficit: Setup LE Dressing Assistance: Maximal LE Dressing Deficit: (unable to demonstrate RLE 2/2 increased pain; would require LHAE) Toileting Assistance with Device: Minimal (anticipated-declined need for toileting) Activity Tolerance: Endurance: Tolerates 10 - 20 min exercise with multiple rests Bed Mobility/Transfers: Bed Mobility Bed Mobility: Yes Bed Mobility 1 Bed Mobility 1: Supine to sitting, Sitting to supine Level of Assistance 1: Close supervision Bed Mobility Comments 1: HOB raised Transfers Transfer: Yes Transfer 1 Technique 1: Sit to stand, Stand to sit Transfer Device 1: Walker Transfer Level of Assistance 1: Contact guard Trials/Comments 1: from EOB x2 trials Functional Mobility: Functional Mobility Functional Mobility Performed: Yes Functional Mobility 1 Comments 1: facilitated short household distances with RW and CGA-SBA; pt does not utilize AD at baseline Sitting Balance: Dynamic Sitting Balance Dynamic Sitting-Comments: poor dynamic reaching 2/2 increased pain to RLE limiting ADLs at EOB Standing Balance: Static Standing Balance Static Standing-Balance Support: No upper extremity supported Static Standing-Level of Assistance: Minimum assistance Static Standing-Comment/Number of Minutes: +LOB with removal of UE support Vision:Vision - Basic Assessment Current Vision: No visual deficits Sensation: Light Touch: No apparent deficits Strength: Strength Comments: BUE 3+/5 Perception: Inattention/Neglect: Appears intact Initiation: Appears intact Motor Planning: Appears intact Perseveration: Not present Coordination: Movements are Fluid and Coordinated: Yes Hand Function: Gross Grasp: Functional Coordination: Functional Extremities: RUE RUE : Within Functional Limits and LUE LUE: Within Functional Limits Outcome Measures:[facility] Daily Activity Putting on and taking off regular lower body clothing: A lot Bathing (including washing, rinsing, drying): A lot Putting on and taking off regular upper body clothing: A little Toileting, which includes using toilet, bedpan or urinal: A little Taking care of personal grooming such as brushing teeth: A little Eating Meals: None Daily Activity - Total Score: 17 , Brief Confusion Assessment Method (bCAM) CAM Result: CAM - , and OT Adult Other Outcome Measures Modified Shira Index (Mckenzie version): 60 Education Documentation Body Mechanics, taught by Jenn Fajardo OT at 09/04/2024 9:25 AM. Learner: Patient Readiness: Acceptance Method: Explanation Response: Verbalizes Understanding Precautions, taught by Jenn Fajardo OT at 09/04/2024 9:25 AM. Learner: Patient Readiness: Acceptance Method: Explanation Response: Verbalizes Understanding ADL Training, taught by Jenn Fajardo OT at 09/04/2024 9:25 AM. Learner: Patient Readiness: Acceptance Method: Explanation Response: Verbalizes Understanding Education Comments No comments found. Goals: Encounter Problems Encounter Problems (Active) ADLs Patient will demonstrate lower body dressing with modified independent level of assistancedonning and doffing all LE clothes with PRN adaptive equipment Start: 09/04/24 Expected End: 09/25/24 BALANCE pt will demonstrate dynamic standing greater than 8 mins with 1-2 UE release at mod I in prep for cooking and bathing tasks Start: 09/04/24 Expected End: 09/25/24 EXERCISE/STRENGTHENING pt will be IND with BUE HEP for increasing functional strength and activity tolerance required for ADL completion Start: 09/04/24 Expected End: 09/25/24 MOBILITY pt will safely demonstrate functional mobility, to/from bathroom and at other household distances, navigating around environmental barriers with LRD and mod I Start: 09/04/24 Expected End: 09/25/24 09/04/24 at 9:46 AM Jenn Fajardo OT Rehab Office: [phone] Apoorva Gonzalez is a 74 y.o. female on day 5 of admission presenting with Hematoma. Medical History[1] Surgical History[2] Social History Socioeconomic History Marital status: Single Spouse name: Not on file Number of children: Not on file Years of education: Not on file Highest education level: Not on file Occupational History Not on file Tobacco Use Smoking status: Never Smokeless tobacco: Never Substance and Sexual Activity Alcohol use: Not on file Drug use: Not on file Sexual activity: Not on file Other Topics Concern Not on file Social History Narrative Not on file Social Drivers of Health Financial Resource Strain: Low Risk (08/31/2024) Overall Financial Resource Strain (CARDIA) Difficulty of Paying Living Expenses: Not hard at all Food Insecurity: No Food Insecurity (08/31/2024) Hunger Vital Sign Worried About Running Out of Food in the Last Year: Never true Ran Out of Food in the Last Year: Never true Transportation Needs: No Transportation Needs (08/31/2024) PRAPARE - Transportation Lack of Transportation (Medical): No Lack of Transportation (Non-Medical): No Physical Activity: Not on file Stress: Not on file Social Connections: Not on file Intimate Partner Violence: Not At Risk (08/31/2024) Humiliation, Afraid, Rape, and Kick questionnaire Fear of Current or Ex-Partner: No Emotionally Abused: No Physically Abused: No Sexually Abused: No Housing Stability: Low Risk (08/31/2024) Housing Stability Vital Sign Unable to Pay for Housing in the Last Year: No Number of Times Moved in the Last Year: 0 Homeless in the Last Year: No Allergies[3] Dietary Orders (From admission, onward) Adult diet Regular Diet effective now Question: Diet type Answer: Regular May Participate in Room Service Once Question: . Answer: Yes Objective Vitals Temp: [36.6 C (97.9 F)-37 C (98.6 F)] 36.7 C (98.1 F) Heart Rate: [85-89] 86 Resp: [15-18] 16 BP: (147-164)/(70-83) 155/83 0-10 (Numeric) Pain Score: 3 Peripheral IV 08/30/24 22 G Anterior;Left Forearm (Active) Number of days: 1 Peripheral IV 08/30/24 20 G Anterior;Left;Upper Arm (Active) Number of days: 1 Relevant Results Results for orders placed or performed during the hospital encounter of 08/30/24 (from the past 24 hours) CBC and Auto Differential Result Value Ref Range WBC RBC Hemoglobin Hematocrit MCV MCHC RDW Platelets Neutrophils % Immature Granulocytes %, Automated Lymphocytes % Monocytes % Eosinophils % Basophils % Neutrophils Absolute Lymphocytes Absolute Monocytes Absolute Eosinophils Absolute Basophils Absolute Scheduled medications Scheduled Medications[4] Continuous medications Continuous Medications[5] PRN medications PRN Medications[6] S/ Seen and examined No new complaints no new event over the night ROS: Negative O/ General Appearance: Alert, Oriented X3, Cooperative, Not in Acute Distress HEENT: no eye redness, not pale, no jaundice, Throat: not congested, no ulcers Chest: Good AE bilateral, No crackles, no ronchies, no wheezes. Heart: RHR, Normal heart sounds S1, S2, no murmur or gallop, Abdomen: Soft, lax, no hepatosplenomegaly, intact hernia orifices, negative staton sign, no tenderness, Genitalia: no abnormal discharge, no ulcers, no swelling. Lymphatics: no lymphadenopathy, supraclavicular, inguinal trochlear, or axilla. Neurology: Intact cranial nerves 2 to 12, intact sensation, intact motor function (Power, tone and reflexes). Normal DTR reflexes. Extremities: no signs of PAD, no swelling no ulcers Back: no deformity, no SI tenderness, no ulcers. Skin: no signs of dehydration, no Rash, Bruises, or purpura. : Ms. Apoorva Gonzalez is a 74 y.o. female with pmhx of ESRD on HD- TTS, seizures(on keppra), HTN, [facility] for thigh hematoma. CTA was obtained that showed expanding hematoma in right thigh. Patient status post 2 units packed RBC. IR on board at this time did not recommended embolization, requested continue clinical monitoring and serial H&H. Required another Unit of PRBCs on 08/31, Hb stable at 7.5 mg will continue monitoring. Per ID Dc ABX. Per ACS and IR continue with conservative management for thigh hematoma. Clinically she is stable and improving, pain under control. Hb continue to be stable 8-8.5 mg/dl Continue monitoring C/w with HD TTS Medically stable pending Placement #. Rt Thigh hematoma s/p abscess drainage: stable #. Right anterior thigh cellulitis and hematoma - Recent hospitalization at [facility] on 08/14 with sudden cardiac arrest, though to be sepsis due to R thigh and anterior hip abscess, underwent CT guided aspiration then I&D in OR, treated with IV Zosyn x7 days then discharged 08/24 to SNF with wound vac. - IR on board - Consult Ortho - ID consult - cw vanc/zosyn , first day was 08/27 - 0.2 mg iv dilaudid prn severe pain, 5mg oxy prn moderate pain - daily cbc while inpatient #ESRD on dialysis - LUE fistula - TT - consult nephro for HD - cw lynne Peres on non dialysis days #. acute on chronic anemia- due to blood loss at thigh hematoma - anemia of chronic disease due to ESRD - Hb 6.8 >> 7.7 mg/dl - s/p 3 units PRBCs. - continue monitoring Hb #hx of seizures - she reported stop taking keppra for longtime - unknown why she was given keppra, but she said maybe it was for alcohol withdrawal seizure ! Code Status: Full DVT ppx: on hold due to active bleeding Disp: PT/ot pending POA: Son: Mayur [phone] I reviewed the resident/fellow's documentation and discussed the patient with the resident/fellow. I agree with the resident/fellow's medical decision making as documented in the note. I saw and evaluated the patient. I personally obtained the saavedra and critical portions of the history and physical exam or was physically present for saavedra and critical portions performed by the resident. I reviewed the resident's documentation and discussed the patient with the resident. I agree with the resident's medical decision making as documented in the note. spoke to the pt, explained the medical and social conditions and the reason for this admission explained our plan and recommendations. Time spent on the assessment of patient, gathering and interpreting data, review of medical record/patient history, personally reviewing radiographic imaging. With greater than 50% spent in personal discussion with patient. Disclaimer: Portions of this note may have been generated using [employer] voice recognition software. Reasonable efforts were made to correct any dictation errors that resulted due to the programming of this software but some may still be present. Portions of this note including HPI, ROS, impression/plan, and examination may have been copied forward from previous notes as to provide important historical information essential in contributing to medical decision making. Documentation has been reviewed and edited as necessary to support clinical decision making for today's visit and to reflect my own independent evaluation of this patient. The time of this note does not reflect the time I saw the patient but the time that this note was written Time >40 min Teodoro Toscano MD [1] No past medical history on file. [2] No past surgical history on file. [3] No Known Allergies [4] amLODIPine, 5 mg, oral, Daily atorvastatin, 40 mg, oral, Nightly cholecalciferol, 125 mcg, oral, Daily epoetin miller or biosimilar, 10,000 Units, subcutaneous, Once per day on Wednesday sodium zirconium cyclosilicate, 10 g, oral, Once per day on Wednesday thiamine, 100 mg, oral, Daily vitamin B complex-vitamin C-folic acid, 1 capsule, oral, Daily [5] [6] PRN medications: HYDROmorphone, meclizine 09/03/24 1612 [employer]itional [employer] Manager Notes: Transitional Care Coordination Progress Note: Patient discussed during interdisciplinary rounds. Team members present: MD and TCC Plan per Medical/Surgical team: Pending PT/OT to evaluate for discharge needs. Anticipating discharge for tomorrow. Payor: [employer]? Discharge disposition: [facility] Potential Barriers: none ADOD: 1-3 days Assessment & Plan Hematoma Ann Sheridan RN Apoorva Gonzalez is a 74 y.o. female on day 4 of admission presenting with Hematoma. Medical History[1] Surgical History[2] Social History Socioeconomic History Marital status: Single Spouse name: Not on file Number of children: Not on file Years of education: Not on file Highest education level: Not on file Occupational History Not on file Tobacco Use Smoking status: Never Smokeless tobacco: Never Substance and Sexual Activity Alcohol use: Not on file Drug use: Not on file Sexual activity: Not on file Other Topics Concern Not on file Social History Narrative Not on file Social Drivers of Health Financial Resource Strain: Low Risk (08/31/2024) Overall Financial Resource Strain (CARDIA) Difficulty of Paying Living Expenses: Not hard at all Food Insecurity: No Food Insecurity (08/31/2024) Hunger Vital Sign Worried About Running Out of Food in the Last Year: Never true Ran Out of Food in the Last Year: Never true Transportation Needs: No Transportation Needs (08/31/2024) PRAPARE - Transportation Lack of Transportation (Medical): No Lack of Transportation (Non-Medical): No Physical Activity: Not on file Stress: Not on file Social Connections: Not on file Intimate Partner Violence: Not At Risk (08/31/2024) Humiliation, Afraid, Rape, and Kick questionnaire Fear of Current or Ex-Partner: No Emotionally Abused: No Physically Abused: No Sexually Abused: No Housing Stability: Low Risk (08/31/2024) Housing Stability Vital Sign Unable to Pay for Housing in the Last Year: No Number of Times Moved in the Last Year: 0 Homeless in the Last Year: No Allergies[3] Dietary Orders (From admission, onward) Adult diet Regular Diet effective now Question: Diet type Answer: Regular May Participate in Room Service Once Question: . Answer: Yes Objective Vitals Temp: [36 C (96.8 F)-36.9 C (98.4 F)] 36 C (96.8 F) Heart Rate: [71-88] 81 Resp: [17-18] 18 BP: (128-164)/(59-76) 160/76 0-10 (Numeric) Pain Score: 3 Peripheral IV 08/30/24 22 G Anterior;Left Forearm (Active) Number of days: 1 Peripheral IV 08/30/24 20 G Anterior;Left;Upper Arm (Active) Number of days: 1 Relevant Results Results for orders placed or performed during the hospital encounter of 08/30/24 (from the past 24 hours) CBC and Auto Differential Result Value Ref Range WBC 8.8 4.4 - 11.3 x10*3/uL nRBC 0.0 0.0 - 0.0 /100 WBCs RBC 2.78 (L) 4.00 - 5.20 x10*6/uL Hemoglobin 8.5 (L) 12.0 - 16.0 g/dL Hematocrit 27.3 (L) 36.0 - 46.0 % MCV 98 80 - 100 fL MCH 30.6 26.0 - 34.0 pg MCHC 31.1 (L) 32.0 - 36.0 g/dL RDW 15.3 (H) 11.5 - 14.5 % Platelets 399 150 - 450 x10*3/uL Neutrophils % 69.9 40.0 - 80.0 % Immature Granulocytes %, Automated 0.5 0.0 - 0.9 % Lymphocytes % 14.6 13.0 - 44.0 % Monocytes % 8.7 2.0 - 10.0 % Eosinophils % 4.8 0.0 - 6.0 % Basophils % 1.5 0.0 - 2.0 % Neutrophils Absolute 6.16 (H) 1.60 - 5.50 x10*3/uL Immature Granulocytes Absolute, Automated 0.04 0.00 - 0.50 x10*3/uL Lymphocytes Absolute 1.29 0.80 - 3.00 x10*3/uL Monocytes Absolute 0.77 0.05 - 0.80 x10*3/uL Eosinophils Absolute 0.42 (H) 0.00 - 0.40 x10*3/uL Basophils Absolute 0.13 (H) 0.00 - 0.10 x10*3/uL CBC and Auto Differential Result Value Ref Range WBC 9.3 4.4 - 11.3 x10*3/uL nRBC 0.0 0.0 - 0.0 /100 WBCs RBC 2.84 (L) 4.00 - 5.20 x10*6/uL Hemoglobin 8.8 (L) 12.0 - 16.0 g/dL Hematocrit 28.8 (L) 36.0 - 46.0 % MCV 101 (H) 80 - 100 fL MCH 31.0 26.0 - 34.0 pg MCHC 30.6 (L) 32.0 - 36.0 g/dL RDW 15.5 (H) 11.5 - 14.5 % Platelets 430 150 - 450 x10*3/uL Neutrophils % 73.9 40.0 - 80.0 % Immature Granulocytes %, Automated 0.6 0.0 - 0.9 % Lymphocytes % 11.5 13.0 - 44.0 % Monocytes % 8.5 2.0 - 10.0 % Eosinophils % 4.3 0.0 - 6.0 % Basophils % 1.2 0.0 - 2.0 % Neutrophils Absolute 6.86 (H) 1.60 - 5.50 x10*3/uL Immature Granulocytes Absolute, Automated 0.06 0.00 - 0.50 x10*3/uL Lymphocytes Absolute 1.07 0.80 - 3.00 x10*3/uL Monocytes Absolute 0.79 0.05 - 0.80 x10*3/uL Eosinophils Absolute 0.40 0.00 - 0.40 x10*3/uL Basophils Absolute 0.11 (H) 0.00 - 0.10 x10*3/uL Basic metabolic panel Result Value Ref Range Glucose 87 74 - 99 mg/dL Sodium 139 136 - 145 mmol/L Potassium 4.3 3.5 - 5.3 mmol/L Chloride 98 98 - 107 mmol/L Bicarbonate 33 (H) 21 - 32 mmol/L Anion Gap 12 10 - 20 mmol/L Urea Nitrogen 28 (H) 6 - 23 mg/dL Creatinine 4.58 (H) 0.50 - 1.05 mg/dL eGFR 10 (L) >60 mL/min/1.73m*2 Calcium 7.8 (L) 8.6 - 10.6 mg/dL CBC and Auto Differential Result Value Ref Range WBC 9.6 4.4 - 11.3 x10*3/uL nRBC 0.0 0.0 - 0.0 /100 WBCs RBC 2.66 (L) 4.00 - 5.20 x10*6/uL Hemoglobin 8.0 (L) 12.0 - 16.0 g/dL Hematocrit 26.0 (L) 36.0 - 46.0 % MCV 98 80 - 100 fL MCH 30.1 26.0 - 34.0 pg MCHC 30.8 (L) 32.0 - 36.0 g/dL RDW 15.2 (H) 11.5 - 14.5 % Platelets 429 150 - 450 x10*3/uL Neutrophils % 66.4 40.0 - 80.0 % Immature Granulocytes %, Automated 0.5 0.0 - 0.9 % Lymphocytes % 17.5 13.0 - 44.0 % Monocytes % 9.2 2.0 - 10.0 % Eosinophils % 5.5 0.0 - 6.0 % Basophils % 0.9 0.0 - 2.0 % Neutrophils Absolute 6.38 (H) 1.60 - 5.50 x10*3/uL Immature Granulocytes Absolute, Automated 0.05 0.00 - 0.50 x10*3/uL Lymphocytes Absolute 1.69 0.80 - 3.00 x10*3/uL Monocytes Absolute 0.89 (H) 0.05 - 0.80 x10*3/uL Eosinophils Absolute 0.53 (H) 0.00 - 0.40 x10*3/uL Basophils Absolute 0.09 0.00 - 0.10 x10*3/uL Scheduled medications Scheduled Medications[4] Continuous medications Continuous Medications[5] PRN medications PRN Medications[6] S/ Seen and examined No new complaints no new event over the night ROS: Negative O/ General Appearance: Alert, Oriented X3, Cooperative, Not in Acute Distress HEENT: no eye redness, not pale, no jaundice, Throat: not congested, no ulcers Chest: Good AE bilateral, No crackles, no ronchies, no wheezes. Heart: RHR, Normal heart sounds S1, S2, no murmur or gallop, Abdomen: Soft, lax, no hepatosplenomegaly, intact hernia orifices, negative staton sign, no tenderness, Genitalia: no abnormal discharge, no ulcers, no swelling. Lymphatics: no lymphadenopathy, supraclavicular, inguinal trochlear, or axilla. Neurology: Intact cranial nerves 2 to 12, intact sensation, intact motor function (Power, tone and reflexes). Normal DTR reflexes. Extremities: no signs of PAD, no swelling no ulcers Back: no deformity, no SI tenderness, no ulcers. Skin: no signs of dehydration, no Rash, Bruises, or purpura. : Ms. Apoorva Gonzalez is a 74 y.o. female with pmhx of ESRD on HD- TTS, seizures(on keppra), HTN, [facility] for thigh hematoma. CTA was obtained that showed expanding hematoma in right thigh. Patient status post 2 units packed RBC. IR on board at this time did not recommended embolization, requested continue clinical monitoring and serial H&H. Required another Unit of PRBCs on 08/31, Hb stable at 7.5 mg will continue monitoring. ACS and IR not planning for procedures at this time. Per ID Dc ABX. Per ACS and IR continue with conservative management for thigh hematoma. Clinically she is stable and improving, pain under control. Hb continue to be stable 8-8.5 mg/dl Continue monitoring C/w with HD #. Rt Thigh hematoma s/p abscess drainage: stable #. Right anterior thigh cellulitis and hematoma - Recent hospitalization at [facility] on 08/14 with sudden cardiac arrest, though to be sepsis due to R thigh and anterior hip abscess, underwent CT guided aspiration then I&D in OR, treated with IV Zosyn x7 days then discharged 08/24 to SNF with wound vac. - IR on board - Consult Ortho - ID consult - cw vanc/zosyn , first day was 08/27 - 0.2 mg iv dilaudid prn severe pain, 5mg oxy prn moderate pain - q6h cbc #ESRD on dialysis - LUE fistula - TThS - consult nephro for HD - cw lynne 10 on non dialysis days #. acute on chronic anemia- due to blood loss at thigh hematoma - anemia of chronic disease due to ESRD - Hb 6.8 >> 7.7 mg/dl - s/p 3 units PRBCs. - continue monitoring Hb #hx of seizures - she reported stop taking keppra for longtime - unknown why she was given keppra, but she said maybe it was for alcohol withdrawal seizure ! Code Status: Full DVT ppx: on hold due to active bleeding Disp: PT/ot pending I reviewed the resident/fellow's documentation and discussed the patient with the resident/fellow. I agree with the resident/fellow's medical decision making as documented in the note. I saw and evaluated the patient. I personally obtained the saavedra and critical portions of the history and physical exam or was physically present for saavedra and critical portions performed by the resident. I reviewed the resident's documentation and discussed the patient with the resident. I agree with the resident's medical decision making as documented in the note. spoke to the pt, explained the medical and social conditions and the reason for this admission explained our plan and recommendations. Time spent on the assessment of patient, gathering and interpreting data, review of medical record/patient history, personally reviewing radiographic imaging. With greater than 50% spent in personal discussion with patient. Disclaimer: Portions of this note may have been generated using [employer] voice recognition software. Reasonable efforts were made to correct any dictation errors that resulted due to the programming of this software but some may still be present. Portions of this note including HPI, ROS, impression/plan, and examination may have been copied forward from previous notes as to provide important historical information essential in contributing to medical decision making. Documentation has been reviewed and edited as necessary to support clinical decision making for today's visit and to reflect my own independent evaluation of this patient. The time of this note does not reflect the time I saw the patient but the time that this note was written Time > 35 min Teodoro Toscano MD [1] No past medical history on file. [2] No past surgical history on file. [3] No Known Allergies [4] amLODIPine, 5 mg, oral, Daily atorvastatin, 40 mg, oral, Nightly cholecalciferol, 125 mcg, oral, Daily epoetin miller or biosimilar, 10,000 Units, subcutaneous, Once per day on Wednesday sodium zirconium cyclosilicate, 10 g, oral, Once per day on Wednesday thiamine, 100 mg, oral, Daily vitamin B complex-vitamin C-folic acid, 1 capsule, oral, Daily [5] [6] PRN medications: HYDROmorphone, meclizine Apoorva Gonzalez is a 74 y.o. female on day 3 of admission presenting with Hematoma. Medical History[1] Surgical History[2] Social History Socioeconomic History Marital status: Single Spouse name: Not on file Number of children: Not on file Years of education: Not on file Highest education level: Not on file Occupational History Not on file Tobacco Use Smoking status: Never Smokeless tobacco: Never Substance and Sexual Activity Alcohol use: Not on file Drug use: Not on file Sexual activity: Not on file Other Topics Concern Not on file Social History Narrative Not on file Social Drivers of Health Financial Resource Strain: Low Risk (08/31/2024) Overall Financial Resource Strain (CARDIA) Difficulty of Paying Living Expenses: Not hard at all Food Insecurity: No Food Insecurity (08/31/2024) Hunger Vital Sign Worried About Running Out of Food in the Last Year: Never true Ran Out of Food in the Last Year: Never true Transportation Needs: No Transportation Needs (08/31/2024) PRAPARE - Transportation Lack of Transportation (Medical): No Lack of Transportation (Non-Medical): No Physical Activity: Not on file Stress: Not on file Social Connections: Not on file Intimate Partner Violence: Not At Risk (08/31/2024) Humiliation, Afraid, Rape, and Kick questionnaire Fear of Current or Ex-Partner: No Emotionally Abused: No Physically Abused: No Sexually Abused: No Housing Stability: Low Risk (08/31/2024) Housing Stability Vital Sign Unable to Pay for Housing in the Last Year: No Number of Times Moved in the Last Year: 0 Homeless in the Last Year: No Allergies[3] Dietary Orders (From admission, onward) Adult diet Regular Diet effective now Question: Diet type Answer: Regular May Participate in Room Service Once Question: . Answer: Yes Objective Vitals Temp: [35.6 C (96.1 F)-36.7 C (98.1 F)] 35.6 C (96.1 F) Heart Rate: [79-86] 80 Resp: [16-21] 16 BP: (128-170)/(68-84) 128/73 0-10 (Numeric) Pain Score: 7 Critical-Care Pain Observation Score: 0 CRIES Score: 0 Mclain-Guerra FACES Pain Rating: No hurt Score: FLACC (Rest): 0 Score: FLACC (Activity): 0 NIPS Score: 0 N-PASS Pain/Agitation Score: 0 PAINAD Score: 0 VAS Pain Score: 0 Peripheral IV 08/30/24 22 G Anterior;Left Forearm (Active) Number of days: 1 Peripheral IV 08/30/24 20 G Anterior;Left;Upper Arm (Active) Number of days: 1 Relevant Results Results for orders placed or performed during the hospital encounter of 08/30/24 (from the past 24 hours) CBC and Auto Differential Result Value Ref Range WBC 12.4 (H) 4.4 - 11.3 x10*3/uL nRBC 0.0 0.0 - 0.0 /100 WBCs RBC 2.75 (L) 4.00 - 5.20 x10*6/uL Hemoglobin 8.4 (L) 12.0 - 16.0 g/dL Hematocrit 26.2 (L) 36.0 - 46.0 % MCV 95 80 - 100 fL MCH 30.5 26.0 - 34.0 pg MCHC 32.1 32.0 - 36.0 g/dL RDW 15.9 (H) 11.5 - 14.5 % Platelets 393 150 - 450 x10*3/uL Neutrophils % 76.8 40.0 - 80.0 % Immature Granulocytes %, Automated 0.3 0.0 - 0.9 % Lymphocytes % 11.6 13.0 - 44.0 % Monocytes % 7.8 2.0 - 10.0 % Eosinophils % 2.3 0.0 - 6.0 % Basophils % 1.2 0.0 - 2.0 % Neutrophils Absolute 9.54 (H) 1.60 - 5.50 x10*3/uL Immature Granulocytes Absolute, Automated 0.04 0.00 - 0.50 x10*3/uL Lymphocytes Absolute 1.44 0.80 - 3.00 x10*3/uL Monocytes Absolute 0.97 (H) 0.05 - 0.80 x10*3/uL Eosinophils Absolute 0.28 0.00 - 0.40 x10*3/uL Basophils Absolute 0.15 (H) 0.00 - 0.10 x10*3/uL CBC and Auto Differential Result Value Ref Range WBC 11.1 4.4 - 11.3 x10*3/uL nRBC 0.0 0.0 - 0.0 /100 WBCs RBC 2.48 (L) 4.00 - 5.20 x10*6/uL Hemoglobin 7.9 (L) 12.0 - 16.0 g/dL Hematocrit 23.5 (L) 36.0 - 46.0 % MCV 95 80 - 100 fL MCH 31.9 26.0 - 34.0 pg MCHC 33.6 32.0 - 36.0 g/dL RDW 16.0 (H) 11.5 - 14.5 % Platelets 369 150 - 450 x10*3/uL Neutrophils % 70.8 40.0 - 80.0 % Immature Granulocytes %, Automated 0.4 0.0 - 0.9 % Lymphocytes % 14.1 13.0 - 44.0 % Monocytes % 10.5 2.0 - 10.0 % Eosinophils % 3.4 0.0 - 6.0 % Basophils % 0.8 0.0 - 2.0 % Neutrophils Absolute 7.86 (H) 1.60 - 5.50 x10*3/uL Immature Granulocytes Absolute, Automated 0.04 0.00 - 0.50 x10*3/uL Lymphocytes Absolute 1.57 0.80 - 3.00 x10*3/uL Monocytes Absolute 1.17 (H) 0.05 - 0.80 x10*3/uL Eosinophils Absolute 0.38 0.00 - 0.40 x10*3/uL Basophils Absolute 0.09 0.00 - 0.10 x10*3/uL CBC and Auto Differential Result Value Ref Range WBC 12.3 (H) 4.4 - 11.3 x10*3/uL nRBC 0.0 0.0 - 0.0 /100 WBCs RBC 2.24 (L) 4.00 - 5.20 x10*6/uL Hemoglobin 6.8 (L) 12.0 - 16.0 g/dL Hematocrit 21.1 (L) 36.0 - 46.0 % MCV 94 80 - 100 fL MCH 30.4 26.0 - 34.0 pg MCHC 32.2 32.0 - 36.0 g/dL RDW 15.7 (H) 11.5 - 14.5 % Platelets 366 150 - 450 x10*3/uL Neutrophils % 78.7 40.0 - 80.0 % Immature Granulocytes %, Automated 0.3 0.0 - 0.9 % Lymphocytes % 8.1 13.0 - 44.0 % Monocytes % 10.0 2.0 - 10.0 % Eosinophils % 1.9 0.0 - 6.0 % Basophils % 1.0 0.0 - 2.0 % Neutrophils Absolute 9.70 (H) 1.60 - 5.50 x10*3/uL Immature Granulocytes Absolute, Automated 0.04 0.00 - 0.50 x10*3/uL Lymphocytes Absolute 1.00 0.80 - 3.00 x10*3/uL Monocytes Absolute 1.23 (H) 0.05 - 0.80 x10*3/uL Eosinophils Absolute 0.23 0.00 - 0.40 x10*3/uL Basophils Absolute 0.12 (H) 0.00 - 0.10 x10*3/uL Basic metabolic panel Result Value Ref Range Glucose 88 74 - 99 mg/dL Sodium 140 136 - 145 mmol/L Potassium 4.4 3.5 - 5.3 mmol/L Chloride 98 98 - 107 mmol/L Bicarbonate 29 21 - 32 mmol/L Anion Gap 17 10 - 20 mmol/L Urea Nitrogen 38 (H) 6 - 23 mg/dL Creatinine 6.49 (H) 0.50 - 1.05 mg/dL eGFR 6 (L) >60 mL/min/1.73m*2 Calcium 7.3 (L) 8.6 - 10.6 mg/dL CBC and Auto Differential Result Value Ref Range WBC 9.7 4.4 - 11.3 x10*3/uL nRBC 0.0 0.0 - 0.0 /100 WBCs RBC 2.52 (L) 4.00 - 5.20 x10*6/uL Hemoglobin 7.7 (L) 12.0 - 16.0 g/dL Hematocrit 24.0 (L) 36.0 - 46.0 % MCV 95 80 - 100 fL MCH 30.6 26.0 - 34.0 pg MCHC 32.1 32.0 - 36.0 g/dL RDW 15.6 (H) 11.5 - 14.5 % Platelets 392 150 - 450 x10*3/uL Neutrophils % 67.9 40.0 - 80.0 % Immature Granulocytes %, Automated 0.4 0.0 - 0.9 % Lymphocytes % 17.5 13.0 - 44.0 % Monocytes % 8.1 2.0 - 10.0 % Eosinophils % 5.0 0.0 - 6.0 % Basophils % 1.1 0.0 - 2.0 % Neutrophils Absolute 6.58 (H) 1.60 - 5.50 x10*3/uL Immature Granulocytes Absolute, Automated 0.04 0.00 - 0.50 x10*3/uL Lymphocytes Absolute 1.70 0.80 - 3.00 x10*3/uL Monocytes Absolute 0.79 0.05 - 0.80 x10*3/uL Eosinophils Absolute 0.49 (H) 0.00 - 0.40 x10*3/uL Basophils Absolute 0.11 (H) 0.00 - 0.10 x10*3/uL Scheduled medications Scheduled Medications[4] Continuous medications Continuous Medications[5] PRN medications PRN Medications[6] S/ Seen and examined No new complaints no new event over the night ROS: Negative O/ General Appearance: Alert, Oriented X3, Cooperative, Not in Acute Distress HEENT: no eye redness, not pale, no jaundice, Throat: not congested, no ulcers Chest: Good AE bilateral, No crackles, no ronchies, no wheezes. Heart: RHR, Normal heart sounds S1, S2, no murmur or gallop, Abdomen: Soft, lax, no hepatosplenomegaly, intact hernia orifices, negative staton sign, no tenderness, Genitalia: no abnormal discharge, no ulcers, no swelling. Lymphatics: no lymphadenopathy, supraclavicular, inguinal trochlear, or axilla. Neurology: Intact cranial nerves 2 to 12, intact sensation, intact motor function (Power, tone and reflexes). Normal DTR reflexes. Extremities: no signs of PAD, no swelling no ulcers Back: no deformity, no SI tenderness, no ulcers. Skin: no signs of dehydration, no Rash, Bruises, or purpura. : Ms. Apoorva Gonzalez is a 74 y.o. female with pmhx of ESRD on HD- TTS, seizures(on keppra), HTN, [facility] for thigh hematoma. CTA was obtained that showed expanding hematoma in right thigh. Patient status post 2 units packed RBC. IR on board at this time did not recommended embolization, requested continue clinical monitoring and serial H&H. Required another Unit of PRBCs on 08/31, Hb stable at 7.5 mg will continue monitoring. ACS and IR not planning for procedures at this time. Per ID Dc ABX. Per ACS and IR continue with conservative management for thigh hematoma. Clinically she is stable and improving, pain under control. #. Rt Thigh hematoma s/p abscess drainage: stable #. Right anterior thigh cellulitis and hematoma - Recent hospitalization at [facility] on 08/14 with sudden cardiac arrest, though to be sepsis due to R thigh and anterior hip abscess, underwent CT guided aspiration then I&D in OR, treated with IV Zosyn x7 days then discharged 08/24 to SNF with wound vac. - IR on board - Consult Ortho - ID consult - cw vanc/zosyn , first day was 08/27 - 0.2 mg iv dilaudid prn severe pain, 5mg oxy prn moderate pain - q6h cbc #ESRD on dialysis - LUE fistula - TThS - consult nephro for HD - cw lokelma 10 on non dialysis days #. acute on chronic anemia- due to blood loss at thigh hematoma - anemia of chronic disease due to ESRD - Hb 6.8 >> 7.7 mg/dl - s/p 3 units PRBCs. - continue monitoring Hb #hx of seizures - she reported stop taking keppra for longtime - unknown why she was given keppra, but she said maybe it was for alcohol withdrawal seizure ! Code Status: Full DVT ppx: on hold due to active bleeding Disp: PT/ot pending I reviewed the resident/fellow's documentation and discussed the patient with the resident/fellow. I agree with the resident/fellow's medical decision making as documented in the note. I saw and evaluated the patient. I personally obtained the saavedra and critical portions of the history and physical exam or was physically present for saavedra and critical portions performed by the resident. I reviewed the resident's documentation and discussed the patient with the resident. I agree with the resident's medical decision making as documented in the note. spoke to the pt, explained the medical and social conditions and the reason for this admission explained our plan and recommendations. Time spent on the assessment of patient, gathering and interpreting data, review of medical record/patient history, personally reviewing radiographic imaging. With greater than 50% spent in personal discussion with patient. Disclaimer: Portions of this note may have been generated using [employer] voice recognition software. Reasonable efforts were made to correct any dictation errors that resulted due to the programming of this software but some may still be present. Portions of this note including HPI, ROS, impression/plan, and examination may have been copied forward from previous notes as to provide important historical information essential in contributing to medical decision making. Documentation has been reviewed and edited as necessary to support clinical decision making for today's visit and to reflect my own independent evaluation of this patient. The time of this note does not reflect the time I saw the patient but the time that this note was written Time > 50 min Teodoro Toscano MD [1] No past medical history on file. [2] No past surgical history on file. [3] No Known Allergies [4] amLODIPine, 5 mg, oral, Daily atorvastatin, 40 mg, oral, Nightly cholecalciferol, 125 mcg, oral, Daily epoetin miller or biosimilar, 10,000 Units, subcutaneous, Once per day on Wednesday sodium zirconium cyclosilicate, 10 g, oral, Once per day on Wednesday thiamine, 100 mg, oral, Daily vitamin B complex-vitamin C-folic acid, 1 capsule, oral, Daily [5] [6] PRN medications: HYDROmorphone, meclizine [facility] met with patient yesterday and again today for medicaid screening. Each time patient refuses screening stating that she has insurance. [facility] states her insurance is showing as inactive in the system. called [facility] to inquire if they are billing insurance for this patient. Dwain at [facility] states that she has a [employer] product and provides numbers: Group # [id number] Plan # [id number]. JOSÉ MIGUEL Rios Apoorva Gonzalez is a 74 y.o. female on day 2 of admission presenting with Hematoma. Subjective Pt resting in bed. Denies sob, n/v/d, fever, cough, chills, pain, chest pains, light head, dizziness, constipation Objective Physical Exam Vitals and nursing note reviewed. Cardiovascular: Rate and Rhythm: Normal rate and regular rhythm. Pulmonary: Comments: Ariel lung sounds dim POX 96% room air Abdominal: Palpations: Abdomen is soft. Comments: Non-tender to palpation Genitourinary: Comments: States make urine Musculoskeletal: Comments: Rt thigh cuihriugu-ahodxalv-lnkxhlvf intact Ble without edema Skin: General: Skin is warm and dry. Neurological: General: No focal deficit present. Mental Status: She is alert and oriented to person, place, and time. Psychiatric: Mood and Affect: Mood normal. Behavior: Behavior normal. Last Recorded Vitals Blood pressure 146/70, pulse 81, temperature 36.9 C (98.4 F), temperature source Temporal, resp. rate 18, height 1.63 m (5' 4.17), weight 51.8 kg (114 lb 3.2 oz), SpO2 96%. Intake/Output last 3 Shifts: I/O last 3 completed shifts: In: 1145.4 (22.1 mL/kg) [I.V.:200 (3.9 mL/kg); Blood:395.4; Other:400; IV Piggyback:150] Out: 1400 (27 mL/kg) [Other:1400] Weight: 51.8 kg Relevant Results Scheduled medications amLODIPine, 5 mg, oral, Daily atorvastatin, 40 mg, oral, Nightly cholecalciferol, 125 mcg, oral, Daily sodium zirconium cyclosilicate, 10 g, oral, Once per day on Wednesday thiamine, 100 mg, oral, Daily vitamin B complex-vitamin C-folic acid, 1 capsule, oral, Daily Continuous medications PRN medications PRN medications: HYDROmorphone, meclizine Results for orders placed or performed during the hospital encounter of 08/30/24 (from the past 24 hours) CBC Result Value Ref Range WBC 15.2 (H) 4.4 - 11.3 x10*3/uL nRBC 0.0 0.0 - 0.0 /100 WBCs RBC 2.71 (L) 4.00 - 5.20 x10*6/uL Hemoglobin 8.2 (L) 12.0 - 16.0 g/dL Hematocrit 26.1 (L) 36.0 - 46.0 % MCV 96 80 - 100 fL MCH 30.3 26.0 - 34.0 pg MCHC 31.4 (L) 32.0 - 36.0 g/dL RDW 15.9 (H) 11.5 - 14.5 % Platelets 450 150 - 450 x10*3/uL Prepare RBC: 1 Units Result Value Ref Range PRODUCT CODE [id number] Unit Number [id number] Unit ABO O Unit RH POS XM INTEP COMP Dispense Status IS Blood Expiration Date 09/08/2024 11:59:00 PM EDT PRODUCT BLOOD TYPE 5100 UNIT VOLUME 350 Basic metabolic panel Result Value Ref Range Glucose 92 74 - 99 mg/dL Sodium 141 136 - 145 mmol/L Potassium 3.7 3.5 - 5.3 mmol/L Chloride 97 (L) 98 - 107 mmol/L Bicarbonate 33 (H) 21 - 32 mmol/L Anion Gap 15 10 - 20 mmol/L Urea Nitrogen 23 6 - 23 mg/dL Creatinine 4.41 (H) 0.50 - 1.05 mg/dL eGFR 10 (L) >60 mL/min/1.73m*2 Calcium 7.7 (L) 8.6 - 10.6 mg/dL CBC and Auto Differential Result Value Ref Range WBC 11.9 (H) 4.4 - 11.3 x10*3/uL nRBC 0.0 0.0 - 0.0 /100 WBCs RBC 2.43 (L) 4.00 - 5.20 x10*6/uL Hemoglobin 7.5 (L) 12.0 - 16.0 g/dL Hematocrit 22.9 (L) 36.0 - 46.0 % MCV 94 80 - 100 fL MCH 30.9 26.0 - 34.0 pg MCHC 32.8 32.0 - 36.0 g/dL RDW 15.5 (H) 11.5 - 14.5 % Platelets 360 150 - 450 x10*3/uL Neutrophils % 69.7 40.0 - 80.0 % Immature Granulocytes %, Automated 0.6 0.0 - 0.9 % Lymphocytes % 14.0 13.0 - 44.0 % Monocytes % 11.7 2.0 - 10.0 % Eosinophils % 2.7 0.0 - 6.0 % Basophils % 1.3 0.0 - 2.0 % Neutrophils Absolute 8.33 (H) 1.60 - 5.50 x10*3/uL Immature Granulocytes Absolute, Automated 0.07 0.00 - 0.50 x10*3/uL Lymphocytes Absolute 1.67 0.80 - 3.00 x10*3/uL Monocytes Absolute 1.39 (H) 0.05 - 0.80 x10*3/uL Eosinophils Absolute 0.32 0.00 - 0.40 x10*3/uL Basophils Absolute 0.15 (H) 0.00 - 0.10 x10*3/uL Vancomycin Result Value Ref Range Vancomycin 25.3 (H) 5.0 - 20.0 ug/mL CBC and Auto Differential Result Value Ref Range WBC 12.4 (H) 4.4 - 11.3 x10*3/uL nRBC 0.0 0.0 - 0.0 /100 WBCs RBC 2.75 (L) 4.00 - 5.20 x10*6/uL Hemoglobin 8.4 (L) 12.0 - 16.0 g/dL Hematocrit 26.2 (L) 36.0 - 46.0 % MCV 95 80 - 100 fL MCH 30.5 26.0 - 34.0 pg MCHC 32.1 32.0 - 36.0 g/dL RDW 15.9 (H) 11.5 - 14.5 % Platelets 393 150 - 450 x10*3/uL Neutrophils % 76.8 40.0 - 80.0 % Immature Granulocytes %, Automated 0.3 0.0 - 0.9 % Lymphocytes % 11.6 13.0 - 44.0 % Monocytes % 7.8 2.0 - 10.0 % Eosinophils % 2.3 0.0 - 6.0 % Basophils % 1.2 0.0 - 2.0 % Neutrophils Absolute 9.54 (H) 1.60 - 5.50 x10*3/uL Immature Granulocytes Absolute, Automated 0.04 0.00 - 0.50 x10*3/uL Lymphocytes Absolute 1.44 0.80 - 3.00 x10*3/uL Monocytes Absolute 0.97 (H) 0.05 - 0.80 x10*3/uL Eosinophils Absolute 0.28 0.00 - 0.40 x10*3/uL Basophils Absolute 0.15 (H) 0.00 - 0.10 x10*3/uL CBC and Auto Differential Result Value Ref Range WBC 12.3 (H) 4.4 - 11.3 x10*3/uL nRBC 0.0 0.0 - 0.0 /100 WBCs RBC 2.24 (L) 4.00 - 5.20 x10*6/uL Hemoglobin 6.8 (L) 12.0 - 16.0 g/dL Hematocrit 21.1 (L) 36.0 - 46.0 % MCV 94 80 - 100 fL MCH 30.4 26.0 - 34.0 pg MCHC 32.2 32.0 - 36.0 g/dL RDW 15.7 (H) 11.5 - 14.5 % Platelets 366 150 - 450 x10*3/uL Neutrophils % 78.7 40.0 - 80.0 % Immature Granulocytes %, Automated 0.3 0.0 - 0.9 % Lymphocytes % 8.1 13.0 - 44.0 % Monocytes % 10.0 2.0 - 10.0 % Eosinophils % 1.9 0.0 - 6.0 % Basophils % 1.0 0.0 - 2.0 % Neutrophils Absolute 9.70 (H) 1.60 - 5.50 x10*3/uL Immature Granulocytes Absolute, Automated 0.04 0.00 - 0.50 x10*3/uL Lymphocytes Absolute 1.00 0.80 - 3.00 x10*3/uL Monocytes Absolute 1.23 (H) 0.05 - 0.80 x10*3/uL Eosinophils Absolute 0.23 0.00 - 0.40 x10*3/uL Basophils Absolute 0.12 (H) 0.00 - 0.10 x10*3/uL Assessment & Plan Hematoma Tolerated hemodialysis yesterday with net fluid loss 1L Bp slight high with tx (116/66-167/88) euvolemic on exam and has stable electrolytes . K+=3.7 Outpatient Dialysis schedule: TTS [facility] Access: lt fist- no issues - able to achieve BFR 400 Anemia of ESRD: 09/01-epoetin miller-epbx (Retacrit) injection 10,000 Units .. Current hgb 8.4.. will cont to monitor.. 09/01-s/p 1 unit prbc CKD-MBD Phosphate Binder:cholecalciferol (Vitamin D-3) tablet 125 mcg daily, vitamin B complex-vitamin C-folic acid (Nephrocaps) capsule 1 capsule , daily, thiamine (Vitamin B-1) tablet 100 mg daily Plan HD tomorrow with UF as tolerated Renal diet Please obtain daily standing wt (if possible) Medication to be adjusted for ESRD Patient to continue regular HD schedule while inpatient and to follow with the outpatient millinery copyist at discharge Cristina Stack APRN-TAMIR Apoorva Gonzalez is a 74 y.o. female on day 2 of admission presenting with Hematoma. Subjective Interval History: Pt evaluated while sitting in bed. Pt doing well and hemodynamically stable. Pt endorses R thigh swelling but says pain meds are helping. Also endorses dark-colored stool this morning. Denies fever, chills, abdominal pain, N/V/D. Review of Systems Objective Range of Vitals (last 24 hours) Heart Rate: [81-105] Temp: [35.7 C (96.3 F)-37.3 C (99.1 F)] Resp: [16-18] BP: (116-167)/(61-88) SpO2: [93 %-99 %] Daily Weight 08/31/24 : 51.8 kg (114 lb 3.2 oz) Body mass index is 19.5 kg/m . Physical Exam Constitutional: General: She is not in acute distress. Appearance: Normal appearance. HENT: Head: Normocephalic and atraumatic. Mouth/Throat: Mouth: Mucous membranes are moist. Eyes: Extraocular Movements: Extraocular movements intact. Cardiovascular: Rate and Rhythm: Normal rate and regular rhythm. Pulmonary: Effort: Pulmonary effort is normal. Musculoskeletal: General: Normal range of motion. Right lower leg: No edema. Left lower leg: No edema. Comments: R thigh with silver dressing and ROSEY wrap, firm to touch Neurological: Mental Status: She is alert and oriented to person, place, and time. Psychiatric: Mood and Affect: Mood normal. Behavior: Behavior normal. Antibiotics This patient does not have an active medication from one of the medication groupers. Relevant Results Labs Results from last 72 hours Lab Units 09/01/24 2345 09/01/24 1230 09/01/24 0555 WBC AUTO x10*3/uL 12.3* 12.4* 11.9* HEMOGLOBIN g/dL 6.8* 8.4* 7.5* HEMATOCRIT % 21.1* 26.2* 22.9* PLATELETS AUTO x10*3/uL 366 393 360 NEUTROS PCT AUTO % 78.7 76.8 69.7 LYMPHS PCT AUTO % 8.1 11.6 14.0 MONOS PCT AUTO % 10.0 7.8 11.7 EOS PCT AUTO % 1.9 2.3 2.7 Results from last 72 hours Lab Units 09/01/24 0555 08/31/24 0553 08/31/24 0051 SODIUM mmol/L 141 132* 132* POTASSIUM mmol/L 3.7 4.2 4.1 CHLORIDE mmol/L 97* 89* 88* CO2 mmol/L 33* 28 29 BUN mg/dL 23 45* 47* CREATININE mg/dL 4.41* 7.69* 7.69* GLUCOSE mg/dL 92 74 86 CALCIUM mg/dL 7.7* 7.3* 7.8* ANION GAP mmol/L 15 19 19 EGFR mL/min/1.73m*2 10* 5* 5* PHOSPHORUS mg/dL -- -- 7.0* Results from last 72 hours Lab Units 08/31/24 0051 ALK PHOS U/L 89 BILIRUBIN TOTAL mg/dL 0.7 PROTEIN TOTAL g/dL 5.8* ALT U/L 18 AST U/L 43* ALBUMIN g/dL 3.2* Estimated Creatinine Clearance: 9.2 mL/min (A) (by C-G formula based on SCr of 4.41 mg/dL (H)). No results found for: CRP Microbiology 08/16/24 R thigh aspirate culture- negative (OSH) Imaging Assessment/Plan Apoorva Gonzalez is a 74 y.o. female with a PMHx of ESRD on HD (T,TH, Sat LUE fistula), HTN, HLD, chronic anemia for whom ID is consulted for R thigh abscess. Pt hospitalized from 08/14-08/24 with sepsis and R thigh abscess/ hematoma. Aspiration R thigh performed on 08/16 with culture negative. Taken to the OR for I&D on 08/17 with no intra-op cultures due to lack of fluid/ pus. Treated with seven-day course of Zosyn. Presenting again with increased thigh pain and swelling. Pt started on vancomycin and Zosyn on 08/27. Inflammatory markers at OSH elevated with CRP 34.56 (mg/dL) and ESR 35. White count 14.4 on 08/31. 08/16 R thigh aspirate culture was negative. Pt then treated with 7-day course of Zosyn. Not convinced currently that there is infection in the R thigh. Recommend getting another aspirate or even open biopsy. Also recommend ortho consult to review imaging and weigh in as well. Can stop antibiotics and closely observe. 09/01/24 Update: Pt hemodynamically stable. White count downtrending and is 11.9. ACS consulted and said hematoma appears intramuscular with no target for operative I&D or debridement. IR consulted for consideration of R thigh hematoma aspiration and also determined no obvious target for infection/ abscess aspiration. Recommend close observation off of antibiotics. ID will sign off at this time. Please contact with any questions or concerns. Case and plan were discussed with the ID attending, Dr. Anderson. I spent 20 minutes in the professional and overall care of this patient. Berta Chambers PA-C Infectious Disease Team B Epic chat preferred Clinical updates sent to [facility] via [employer] for patient to return to [facility] [place] upon discharge on TTS schedule. Awaiting update from [facility] on medicaid eligibility. JOSÉ MIGUEL Rios Vancomycin Dosing by Pharmacy- Cessation of Therapy Consult to pharmacy for vancomycin dosing has been discontinued by the prescriber, pharmacy will sign off at this time. Please call pharmacy if there are further questions or re-enter a consult if vancomycin is resumed. Serge Tejeda PharmD Apoorva Gonzalez is a 74 y.o. female on day 2 of admission presenting with Hematoma. Medical History[1] Surgical History[2] Social History Socioeconomic History Marital status: Single Spouse name: Not on file Number of children: Not on file Years of education: Not on file Highest education level: Not on file Occupational History Not on file Tobacco Use Smoking status: Never Smokeless tobacco: Never Substance and Sexual Activity Alcohol use: Not on file Drug use: Not on file Sexual activity: Not on file Other Topics Concern Not on file Social History Narrative Not on file Social Drivers of Health Financial Resource Strain: Low Risk (08/31/2024) Overall Financial Resource Strain (CARDIA) Difficulty of Paying Living Expenses: Not hard at all Food Insecurity: No Food Insecurity (08/31/2024) Hunger Vital Sign Worried About Running Out of Food in the Last Year: Never true Ran Out of Food in the Last Year: Never true Transportation Needs: No Transportation Needs (08/31/2024) PRAPARE - Transportation Lack of Transportation (Medical): No Lack of Transportation (Non-Medical): No Physical Activity: Not on file Stress: Not on file Social Connections: Not on file Intimate Partner Violence: Not At Risk (08/31/2024) Humiliation, Afraid, Rape, and Kick questionnaire Fear of Current or Ex-Partner: No Emotionally Abused: No Physically Abused: No Sexually Abused: No Housing Stability: Low Risk (08/31/2024) Housing Stability Vital Sign Unable to Pay for Housing in the Last Year: No Number of Times Moved in the Last Year: 0 Homeless in the Last Year: No Allergies[3] Dietary Orders (From admission, onward) Adult diet Regular Diet effective now Question: Diet type Answer: Regular May Participate in Room Service Once Question: . Answer: Yes Objective Vitals Temp: [35.7 C (96.3 F)-37.3 C (99.1 F)] 36.9 C (98.4 F) Heart Rate: [81-105] 81 Resp: [16-18] 18 BP: (116-167)/(61-88) 146/70 0-10 (Numeric) Pain Score: 9 Peripheral IV 08/30/24 22 G Anterior;Left Forearm (Active) Number of days: 1 Peripheral IV 08/30/24 20 G Anterior;Left;Upper Arm (Active) Number of days: 1 Relevant Results Results for orders placed or performed during the hospital encounter of 08/30/24 (from the past 24 hours) Hepatitis B surface antibody Result Value Ref Range Hepatitis B Surface AB >1,000.0 (H) <10.0 mIU/mL CBC and Auto Differential Result Value Ref Range WBC 15.5 (H) 4.4 - 11.3 x10*3/uL nRBC 0.0 0.0 - 0.0 /100 WBCs RBC 2.40 (L) 4.00 - 5.20 x10*6/uL Hemoglobin 7.2 (L) 12.0 - 16.0 g/dL Hematocrit 22.7 (L) 36.0 - 46.0 % MCV 95 80 - 100 fL MCH 30.0 26.0 - 34.0 pg MCHC 31.7 (L) 32.0 - 36.0 g/dL RDW 16.1 (H) 11.5 - 14.5 % Platelets 353 150 - 450 x10*3/uL Neutrophils % 79.7 40.0 - 80.0 % Immature Granulocytes %, Automated 0.8 0.0 - 0.9 % Lymphocytes % 8.8 13.0 - 44.0 % Monocytes % 7.1 2.0 - 10.0 % Eosinophils % 2.4 0.0 - 6.0 % Basophils % 1.2 0.0 - 2.0 % Neutrophils Absolute 12.33 (H) 1.60 - 5.50 x10*3/uL Immature Granulocytes Absolute, Automated 0.12 0.00 - 0.50 x10*3/uL Lymphocytes Absolute 1.36 0.80 - 3.00 x10*3/uL Monocytes Absolute 1.10 (H) 0.05 - 0.80 x10*3/uL Eosinophils Absolute 0.37 0.00 - 0.40 x10*3/uL Basophils Absolute 0.19 (H) 0.00 - 0.10 x10*3/uL Hepatitis B surface antigen Result Value Ref Range Hepatitis B Surface AG Nonreactive Nonreactive CBC and Auto Differential Result Value Ref Range WBC 13.2 (H) 4.4 - 11.3 x10*3/uL nRBC 0.0 0.0 - 0.0 /100 WBCs RBC 2.11 (L) 4.00 - 5.20 x10*6/uL Hemoglobin 6.4 (LL) 12.0 - 16.0 g/dL Hematocrit 19.6 (L) 36.0 - 46.0 % MCV 93 80 - 100 fL MCH 30.3 26.0 - 34.0 pg MCHC 32.7 32.0 - 36.0 g/dL RDW 15.7 (H) 11.5 - 14.5 % Platelets 347 150 - 450 x10*3/uL Neutrophils % 79.0 40.0 - 80.0 % Immature Granulocytes %, Automated 0.4 0.0 - 0.9 % Lymphocytes % 9.8 13.0 - 44.0 % Monocytes % 7.2 2.0 - 10.0 % Eosinophils % 2.6 0.0 - 6.0 % Basophils % 1.0 0.0 - 2.0 % Neutrophils Absolute 10.47 (H) 1.60 - 5.50 x10*3/uL Immature Granulocytes Absolute, Automated 0.05 0.00 - 0.50 x10*3/uL Lymphocytes Absolute 1.29 0.80 - 3.00 x10*3/uL Monocytes Absolute 0.95 (H) 0.05 - 0.80 x10*3/uL Eosinophils Absolute 0.34 0.00 - 0.40 x10*3/uL Basophils Absolute 0.13 (H) 0.00 - 0.10 x10*3/uL CBC Result Value Ref Range WBC 15.2 (H) 4.4 - 11.3 x10*3/uL nRBC 0.0 0.0 - 0.0 /100 WBCs RBC 2.71 (L) 4.00 - 5.20 x10*6/uL Hemoglobin 8.2 (L) 12.0 - 16.0 g/dL Hematocrit 26.1 (L) 36.0 - 46.0 % MCV 96 80 - 100 fL MCH 30.3 26.0 - 34.0 pg MCHC 31.4 (L) 32.0 - 36.0 g/dL RDW 15.9 (H) 11.5 - 14.5 % Platelets 450 150 - 450 x10*3/uL Prepare RBC: 1 Units Result Value Ref Range PRODUCT CODE [id number] Unit Number [id number] Unit ABO O Unit RH POS XM INTEP COMP Dispense Status IS Blood Expiration Date 09/08/2024 11:59:00 PM EDT PRODUCT BLOOD TYPE 5100 UNIT VOLUME 350 Basic metabolic panel Result Value Ref Range Glucose 92 74 - 99 mg/dL Sodium 141 136 - 145 mmol/L Potassium 3.7 3.5 - 5.3 mmol/L Chloride 97 (L) 98 - 107 mmol/L Bicarbonate 33 (H) 21 - 32 mmol/L Anion Gap 15 10 - 20 mmol/L Urea Nitrogen 23 6 - 23 mg/dL Creatinine 4.41 (H) 0.50 - 1.05 mg/dL eGFR 10 (L) >60 mL/min/1.73m*2 Calcium 7.7 (L) 8.6 - 10.6 mg/dL CBC and Auto Differential Result Value Ref Range WBC 11.9 (H) 4.4 - 11.3 x10*3/uL nRBC 0.0 0.0 - 0.0 /100 WBCs RBC 2.43 (L) 4.00 - 5.20 x10*6/uL Hemoglobin 7.5 (L) 12.0 - 16.0 g/dL Hematocrit 22.9 (L) 36.0 - 46.0 % MCV 94 80 - 100 fL MCH 30.9 26.0 - 34.0 pg MCHC 32.8 32.0 - 36.0 g/dL RDW 15.5 (H) 11.5 - 14.5 % Platelets 360 150 - 450 x10*3/uL Neutrophils % 69.7 40.0 - 80.0 % Immature Granulocytes %, Automated 0.6 0.0 - 0.9 % Lymphocytes % 14.0 13.0 - 44.0 % Monocytes % 11.7 2.0 - 10.0 % Eosinophils % 2.7 0.0 - 6.0 % Basophils % 1.3 0.0 - 2.0 % Neutrophils Absolute 8.33 (H) 1.60 - 5.50 x10*3/uL Immature Granulocytes Absolute, Automated 0.07 0.00 - 0.50 x10*3/uL Lymphocytes Absolute 1.67 0.80 - 3.00 x10*3/uL Monocytes Absolute 1.39 (H) 0.05 - 0.80 x10*3/uL Eosinophils Absolute 0.32 0.00 - 0.40 x10*3/uL Basophils Absolute 0.15 (H) 0.00 - 0.10 x10*3/uL Vancomycin Result Value Ref Range Vancomycin 25.3 (H) 5.0 - 20.0 ug/mL CBC and Auto Differential Result Value Ref Range WBC 12.3 (H) 4.4 - 11.3 x10*3/uL nRBC 0.0 0.0 - 0.0 /100 WBCs RBC 2.24 (L) 4.00 - 5.20 x10*6/uL Hemoglobin 6.8 (L) 12.0 - 16.0 g/dL Hematocrit 21.1 (L) 36.0 - 46.0 % MCV 94 80 - 100 fL MCH 30.4 26.0 - 34.0 pg MCHC 32.2 32.0 - 36.0 g/dL RDW 15.7 (H) 11.5 - 14.5 % Platelets 366 150 - 450 x10*3/uL Neutrophils % 78.7 40.0 - 80.0 % Immature Granulocytes %, Automated 0.3 0.0 - 0.9 % Lymphocytes % 8.1 13.0 - 44.0 % Monocytes % 10.0 2.0 - 10.0 % Eosinophils % 1.9 0.0 - 6.0 % Basophils % 1.0 0.0 - 2.0 % Neutrophils Absolute 9.70 (H) 1.60 - 5.50 x10*3/uL Immature Granulocytes Absolute, Automated 0.04 0.00 - 0.50 x10*3/uL Lymphocytes Absolute 1.00 0.80 - 3.00 x10*3/uL Monocytes Absolute 1.23 (H) 0.05 - 0.80 x10*3/uL Eosinophils Absolute 0.23 0.00 - 0.40 x10*3/uL Basophils Absolute 0.12 (H) 0.00 - 0.10 x10*3/uL Scheduled medications Scheduled Medications[4] Continuous medications Continuous Medications[5] PRN medications PRN Medications[6] S/ Seen and examined No new complaints no new event over the night ROS: Negative O/ General Appearance: Alert, Oriented X3, Cooperative, Not in Acute Distress HEENT: no eye redness, not pale, no jaundice, Throat: not congested, no ulcers Chest: Good AE bilateral, No crackles, no ronchies, no wheezes. Heart: RHR, Normal heart sounds S1, S2, no murmur or gallop, Abdomen: Soft, lax, no hepatosplenomegaly, intact hernia orifices, negative staton sign, no tenderness, Genitalia: no abnormal discharge, no ulcers, no swelling. Lymphatics: no lymphadenopathy, supraclavicular, inguinal trochlear, or axilla. Neurology: Intact cranial nerves 2 to 12, intact sensation, intact motor function (Power, tone and reflexes). Normal DTR reflexes. Extremities: no signs of PAD, no swelling no ulcers Back: no deformity, no SI tenderness, no ulcers. Skin: no signs of dehydration, no Rash, Bruises, or purpura. : Ms. Apoorva Gonzalez is a 74 y.o. female with pmhx of ESRD on HD- TTS, seizures(on keppra), HTN, [facility] hematoma. CTA was obtained that showed expanding hematoma in right thigh. Patient status post 2 units packed RBC. IR on board at this time did not recommended embolization, requested continue clinical monitoring and serial H&H. Required another Unit of PRBCs on 08/31, Hb stable at 7.5 mg will continue monitoring. ACS and IR not planning for procedures at this time. ID recommended aspiration of the hematoma with culture if possible, discussed with ortho, ACS, and IR not planning to do any procedure at this time. ID rec dc aBX #. Rt Thigh hematoma s/p abscess drainage #. Right anterior thigh cellulitis and hematoma - Recent hospitalization at [facility] on 08/14 with sudden cardiac arrest, though to be sepsis due to R thigh and anterior hip abscess, underwent CT guided aspiration then I&D in OR, treated with IV Zosyn x7 days then discharged 08/24 to SNF with wound vac. 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 Code Status: Full DVT ppx: on hold due to active bleeding Disp: PT/ot I reviewed the resident/fellow's documentation and discussed the patient with the resident/fellow. I agree with the resident/fellow's medical decision making as documented in the note. I saw and evaluated the patient. I personally obtained the saavedra and critical portions of the history and physical exam or was physically present for saavedra and critical portions performed by the resident. I reviewed the resident's documentation and discussed the patient with the resident. I agree with the resident's medical decision making as documented in the note. spoke to the pt, explained the medical and social conditions and the reason for this admission explained our plan and recommendations. Time spent on the assessment of patient, gathering and interpreting data, review of medical record/patient history, personally reviewing radiographic imaging. With greater than 50% spent in personal discussion with patient. Disclaimer: Portions of this note may have been generated using [employer] voice recognition software. Reasonable efforts were made to correct any dictation errors that resulted due to the programming of this software but some may still be present. Portions of this note including HPI, ROS, impression/plan, and examination may have been copied forward from previous notes as to provide important historical information essential in contributing to medical decision making. Documentation has been reviewed and edited as necessary to support clinical decision making for today's visit and to reflect my own independent evaluation of this patient. The time of this note does not reflect the time I saw the patient but the time that this note was written Time > 55 min Teodoro Toscano MD [1] No past medical history on file. [2] No past surgical history on file. [3] No Known Allergies [4] cholecalciferol, 125 mcg, oral, Daily ferrous sulfate, 65 mg of elemental iron, oral, q48h levETIRAcetam, 500 mg, oral, Daily piperacillin-tazobactam, 2.25 g, intravenous, q12h sodium zirconium cyclosilicate, 10 g, oral, Every other day thiamine, 100 mg, oral, Daily [START ON 09/02/2024] vancomycin, 500 mg, intravenous, Once [5] [6] PRN medications: HYDROmorphone, meclizine, vancomycin Vancomycin Dosing by Pharmacy- FOLLOW UP Apoorva Gonzalez is a 74 y.o. year old female who Pharmacy has been consulted for vancomycin dosing for cellulitis, skin and soft tissue. Based on the patient's indication and renal status this patient is being dosed based on a goal pre-HD level of 20-25. Patient is ESRD, receiving HD on . Visit Vitals BP 143/70 Pulse 88 Temp 36.4 C (97.5 F) (Temporal) Resp 18 Lab Results Component Value Date CREATININE 4.41 (H) 09/01/2024 CREATININE 7.69 (H) 08/31/2024 CREATININE 7.69 (H) 08/31/2024 Patient weight is as follows: Vitals: 08/31/24 0134 Weight: 51.8 kg (114 lb 3.2 oz) Cultures: No results found for the encounter in last 14 days. I/O last 3 completed shifts: In: 1145.4 (22.1 mL/kg) [I.V.:200 (3.9 mL/kg); Blood:395.4; Other:400; IV Piggyback:150] Out: 1400 (27 mL/kg) [Other:1400] Weight: 51.8 kg I/O during current shift: No intake/output data recorded. Temp (24hrs), Av.5 C (97.7 F), Min:35.7 C (96.3 F), Max:37.3 C (99.1 F) Assessment/Plan No dose was given after yesterday's HD session due to the 08/31 AM level being 35.9. Today's AM level is 25.3. No doses needed today. Will schedule a post-HD 500mg x1 dose for tomorrow. The next level will be obtained on 09/05 with AM labs. May be obtained sooner if clinically indicated. Will continue to monitor renal function daily while on vancomycin and order serum creatinine at least every 48 hours if not already ordered. Follow for continued vancomycin needs, clinical response, and signs/symptoms of toxicity. Serge Tejeda PharmD, BCPS Pharmacy Medication History Review Apoorva Gonzalez is a 74 y.o. female admitted for Hematoma. Pharmacy reviewed the patient's [id number] medications and allergies for accuracy. Medications ADDED: All medications on MANAGER PHOTOGRAPHY list Medications CHANGED: None Medications REMOVED: None The list below reflects the updated MANAGER PHOTOGRAPHY list. Prior to Admission Medications Prescriptions Last Dose Informant OMEGA-3 FATTY ACIDS ORAL Other Sig: Take 1,000 mg by mouth once daily. acetaminophen (Tylenol) 325 mg tablet Other Sig: Take 2 tablets (650 mg) by mouth every 6 hours if needed (elevated temperature >100 degress and general discomfort). amLODIPine (Norvasc) 5 mg tablet Other Sig: Take 1 tablet (5 mg) by mouth once daily. atorvastatin (Lipitor) 40 mg tablet Other Sig: Take 1 tablet (40 mg) by mouth once daily at bedtime. calcium acetate (Phoslo) 667 mg capsule Other Sig: Take 1 capsule (667 mg) by mouth 3 times daily (morning, midday, late afternoon). cholecalciferol, vitamin D3, (D3-5000 ORAL) Other Sig: Take 1 tablet by mouth once daily. levETIRAcetam (Keppra) 500 mg tablet Other Sig: Take 1 tablet (500 mg) by mouth once daily. meclizine (Antivert) 25 mg tablet Other Sig: Take 1 tablet (25 mg) by mouth 3 times a day as needed for dizziness. sodium zirconium cyclosilicate (Lokelma) 10 gram packet Other Sig: Take 10 g by mouth 3 (three) times a week. Mon/wed/fri thiamine (Vitamin B-1) 250 mg tablet Other Sig: Take 1 tablet (250 mg) by mouth once daily. Facility-Administered Medications: None The list below reflects the updated allergy list. Please review each documented allergy for additional clarification and justification. Allergies Reviewed by Jenn Martin PharmD on 08/31/2024 No Known Allergies Patient declines M2B at discharge. Sources: SNF --[facility] Additional Comments: MANAGER PHOTOGRAPHY medication list updated per [facility] SNF medication list List was active as of 08/26 Jenn Martin PharmD Transitions of Care Pharmacist 08/31/24 Secure Chat preferred If no response call [phone] or [facility] 08/31/24 [phone] Discharge Planning Living Arrangements Alone Support Systems Spouse/significant other;Family members Assistance Needed uses a walker for ambulation assistance Type of Residence Private residence Home or Post Acute Services In home services Expected Discharge Disposition Home H Does the patient need discharge transport arranged? Yes RoundTrip coordination needed? Yes Financial Resource Strain How hard is it for you to pay for the very basics like food, housing, medical care, and heating? Not hard Housing Stability In the last 12 months, was there a time when you were not able to pay the mortgage or rent on time? N In the past 12 months, how many times have you moved where you were living? 0 At any time in the past 12 months, were you homeless or living in a half-way (including now)? N Transportation Needs In the past 12 months, has lack of transportation kept you from medical appointments or from getting medications? no In the past 12 months, has lack of transportation kept you from meetings, work, or from getting things needed for daily living? No Plan per Medical/Surgical team: Patient is admitted for a right thigh hematoma. IR, ID, and Ortho consulted. Patient also has a history of ESRD, Nephrology consulted. Demographics/Insurance: Patient doesn't have her insurance cards but stated she has Medicaid. HRS consulted for Medicaid screening. Living Environment: Patient lives alone but has support from her significant other and family. Home Care: denies PCP: doesn't remember the name of provider [facility] DME: walker [place]: denies Dialysis: [facility] in [place] TTS Social Work Needs: Patient stated she has transportation to dialysis. Denies any financial or social work needs. Transportation at discharge: will possibly need transportation home Potential Barriers: none Discharge [facility]position: [facility] ADOD: 2-4 days Ann Sheridan RN, BSN Transitional Liquor Store Manager Apoorva Gonzalez is a 74 y.o. female on day 1 of admission presenting with Hematoma. Medical History[1] Surgical History[2] Social History Socioeconomic History Marital status: Not on file Spouse name: Not on file Number of children: Not on file Years of education: Not on file Highest education level: Not on file Occupational History Not on file Tobacco Use Smoking status: Never Smokeless tobacco: Never Substance and Sexual Activity Alcohol use: Not on file Drug use: Not on file Sexual activity: Not on file Other Topics Concern Not on file Social History Narrative Not on file Social Drivers of Health Financial Resource Strain: Low Risk (08/31/2024) Overall Financial Resource Strain (CARDIA) Difficulty of Paying Living Expenses: Not hard at all Food Insecurity: No Food Insecurity (08/31/2024) Hunger Vital Sign Worried About Running Out of Food in the Last Year: Never true Ran Out of Food in the Last Year: Never true Transportation Needs: No Transportation Needs (08/31/2024) PRAPARE - Transportation Lack of Transportation (Medical): No Lack of Transportation (Non-Medical): No Physical Activity: Not on file Stress: Not on file Social Connections: Not on file Intimate Partner Violence: Not At Risk (08/31/2024) Humiliation, Afraid, Rape, and Kick questionnaire Fear of Current or Ex-Partner: No Emotionally Abused: No Physically Abused: No Sexually Abused: No Housing Stability: Low Risk (08/31/2024) Housing Stability Vital Sign Unable to Pay for Housing in the Last Year: No Number of Times Moved in the Last Year: 0 Homeless in the Last Year: No Allergies[3] Dietary Orders (From admission, onward) Adult diet Regular Diet effective now Question: Diet type Answer: Regular May Participate in Room Service Once Question: . Answer: Yes Objective Vitals Temp: [36.6 C (97.9 F)] 36.6 C (97.9 F) Heart Rate: [77-79] 79 Resp: [18] 18 BP: (118-134)/(60-64) 118/60 0-10 (Numeric) Pain Score: 8 Peripheral IV 08/30/24 22 G Anterior;Left Forearm (Active) Number of days: 1 Peripheral IV 08/30/24 20 G Anterior;Left;Upper Arm (Active) Number of days: 1 Relevant Results Results for orders placed or performed during the hospital encounter of 08/30/24 (from the past 24 hours) CBC and Auto Differential Result Value Ref Range WBC 15.5 (H) 4.4 - 11.3 x10*3/uL nRBC 0.0 0.0 - 0.0 /100 WBCs RBC 2.30 (L) 4.00 - 5.20 x10*6/uL Hemoglobin 7.0 (L) 12.0 - 16.0 g/dL Hematocrit 21.9 (L) 36.0 - 46.0 % MCV 95 80 - 100 fL MCH 30.4 26.0 - 34.0 pg MCHC 32.0 32.0 - 36.0 g/dL RDW 16.3 (H) 11.5 - 14.5 % Platelets 341 150 - 450 x10*3/uL Neutrophils % 75.7 40.0 - 80.0 % Immature Granulocytes %, Automated 0.6 0.0 - 0.9 % Lymphocytes % 11.4 13.0 - 44.0 % Monocytes % 8.6 2.0 - 10.0 % Eosinophils % 2.5 0.0 - 6.0 % Basophils % 1.2 0.0 - 2.0 % Neutrophils Absolute 11.75 (H) 1.60 - 5.50 x10*3/uL Immature Granulocytes Absolute, Automated 0.09 0.00 - 0.50 x10*3/uL Lymphocytes Absolute 1.77 0.80 - 3.00 x10*3/uL Monocytes Absolute 1.34 (H) 0.05 - 0.80 x10*3/uL Eosinophils Absolute 0.39 0.00 - 0.40 x10*3/uL Basophils Absolute 0.18 (H) 0.00 - 0.10 x10*3/uL Coagulation Screen Result Value Ref Range Protime 11.4 9.8 - 12.4 seconds INR 1.0 0.9 - 1.1 aPTT 25 (L) 26 - 36 seconds Type And Screen Result Value Ref Range ABO TYPE O Rh TYPE POS ANTIBODY SCREEN NEG Comprehensive metabolic panel Result Value Ref Range Glucose 86 74 - 99 mg/dL Sodium 132 (L) 136 - 145 mmol/L Potassium 4.1 3.5 - 5.3 mmol/L Chloride 88 (L) 98 - 107 mmol/L Bicarbonate 29 21 - 32 mmol/L Anion Gap 19 mmol/L Urea Nitrogen 47 (H) 6 - 23 mg/dL Creatinine 7.69 (H) 0.50 - 1.05 mg/dL eGFR 5 (L) >60 mL/min/1.73m*2 Calcium 7.8 (L) 8.6 - 10.6 mg/dL Albumin 3.2 (L) 3.4 - 5.0 g/dL Alkaline Phosphatase 89 33 - 136 U/L Total Protein 5.8 (L) 6.4 - 8.2 g/dL AST 43 (H) 9 - 39 U/L Bilirubin, Total 0.7 0.0 - 1.2 mg/dL ALT 18 7 - 45 U/L Magnesium Result Value Ref Range Magnesium 2.04 1.60 - 2.40 mg/dL Phosphorus Result Value Ref Range Phosphorus 7.0 (H) 2.5 - 4.9 mg/dL Iron and TIBC Result Value Ref Range Iron 29 (L) 35 - 150 ug/dL UIBC 110 110 - 370 ug/dL TIBC 139 (L) 240 - 445 ug/dL % Saturation 21 (L) 25 - 45 % Basic metabolic panel Result Value Ref Range Glucose 74 74 - 99 mg/dL Sodium 132 (L) 136 - 145 mmol/L Potassium 4.2 3.5 - 5.3 mmol/L Chloride 89 (L) 98 - 107 mmol/L Bicarbonate 28 21 - 32 mmol/L Anion Gap 19 10 - 20 mmol/L Urea Nitrogen 45 (H) 6 - 23 mg/dL Creatinine 7.69 (H) 0.50 - 1.05 mg/dL eGFR 5 (L) >60 mL/min/1.73m*2 Calcium 7.3 (L) 8.6 - 10.6 mg/dL CBC and Auto Differential Result Value Ref Range WBC 14.4 (H) 4.4 - 11.3 x10*3/uL nRBC 0.0 0.0 - 0.0 /100 WBCs RBC 2.34 (L) 4.00 - 5.20 x10*6/uL Hemoglobin 7.2 (L) 12.0 - 16.0 g/dL Hematocrit 22.2 (L) 36.0 - 46.0 % MCV 95 80 - 100 fL MCH 30.8 26.0 - 34.0 pg MCHC 32.4 32.0 - 36.0 g/dL RDW 16.3 (H) 11.5 - 14.5 % Platelets 332 150 - 450 x10*3/uL Neutrophils % 74.2 40.0 - 80.0 % Immature Granulocytes %, Automated 0.5 0.0 - 0.9 % Lymphocytes % 12.3 13.0 - 44.0 % Monocytes % 8.7 2.0 - 10.0 % Eosinophils % 3.2 0.0 - 6.0 % Basophils % 1.1 0.0 - 2.0 % Neutrophils Absolute 10.69 (H) 1.60 - 5.50 x10*3/uL Immature Granulocytes Absolute, Automated 0.07 0.00 - 0.50 x10*3/uL Lymphocytes Absolute 1.77 0.80 - 3.00 x10*3/uL Monocytes Absolute 1.25 (H) 0.05 - 0.80 x10*3/uL Eosinophils Absolute 0.46 (H) 0.00 - 0.40 x10*3/uL Basophils Absolute 0.16 (H) 0.00 - 0.10 x10*3/uL CBC Result Value Ref Range WBC 14.4 (H) 4.4 - 11.3 x10*3/uL nRBC 0.0 0.0 - 0.0 /100 WBCs RBC 2.34 (L) 4.00 - 5.20 x10*6/uL Hemoglobin 7.2 (L) 12.0 - 16.0 g/dL Hematocrit 22.2 (L) 36.0 - 46.0 % MCV 95 80 - 100 fL MCH 30.8 26.0 - 34.0 pg MCHC 32.4 32.0 - 36.0 g/dL RDW 16.3 (H) 11.5 - 14.5 % Platelets 332 150 - 450 x10*3/uL Vancomycin Result Value Ref Range Vancomycin 35.9 (H) 5.0 - 20.0 ug/mL Scheduled medications Scheduled Medications[4] Continuous medications Continuous Medications[5] PRN medications PRN Medications[6] S/ Seen and examined No new complaints no new event over the night ROS: Negative O/ General Appearance: Alert, Oriented X3, Cooperative, Not in Acute Distress HEENT: no eye redness, not pale, no jaundice, Throat: not congested, no ulcers Chest: Good AE bilateral, No crackles, no ronchies, no wheezes. Heart: RHR, Normal heart sounds S1, S2, no murmur or gallop, Abdomen: Soft, lax, no hepatosplenomegaly, intact hernia orifices, negative staton sign, no tenderness, Genitalia: no abnormal discharge, no ulcers, no swelling. Lymphatics: no lymphadenopathy, supraclavicular, inguinal trochlear, or axilla. Neurology: Intact cranial nerves 2 to 12, intact sensation, intact motor function (Power, tone and reflexes). Normal DTR reflexes. Extremities: no signs of PAD, no swelling no ulcers Back: no deformity, no SI tenderness, no ulcers. Skin: no signs of dehydration, no Rash, Bruises, or purpura. : Ms. Apoorva Gonzalez is a 74 y.o. female with pmhx of ESRD on HD- TTS, seizures(on keppra), HTN, [facility] hemat[facility]. CTA was obtained that showed expanding hematoma in right thigh. Patient status post 2 units packed RBC. IR on board at this time did not recommended embolization, requested continue clinical monitoring and serial H&H. #. Rt Thigh hematoma s/p abscess drainage #Right anterior thigh cellulitis and hematoma - Recent hospitalization at [facility] on 08/14 with sudden cardiac arrest, though to be sepsis due to R thigh and anterior hip abscess, underwent CT guided aspiration then I&D in OR, treated with IV Zosyn x7 days then discharged 08/24 to SNF with wound vac. - IR on board - Consult Ortho - ID consult - cw vanc/zosyn , first day was 08/27 - 0.2 mg iv dilaudid prn severe pain, 5mg oxy prn moderate pain - q6h cbc #ESRD on dialysis - LUE fistula - TThS - consult nephro for HD - cw lokelma 10 on non dialysis days #acute on chronic anemia- due to blood loss - anemia of chronic disease due to ESRD #hx of seizures cw keppra Code Status: Full DVT ppx: on hold due to active bleeding Disp: PT/ot I reviewed the resident/fellow's documentation and discussed the patient with the resident/fellow. I agree with the resident/fellow's medical decision making as documented in the note. I saw and evaluated the patient. I personally obtained the saavedra and critical portions of the history and physical exam or was physically present for saavedra and critical portions performed by the resident. I reviewed the resident's documentation and discussed the patient with the resident. I agree with the resident's medical decision making as documented in the note. spoke to the pt, explained the medical and social conditions and the reason for this admission explained our plan and recommendations. Time spent on the assessment of patient, gathering and interpreting data, review of medical record/patient history, personally reviewing radiographic imaging. With greater than 50% spent in personal discussion with patient. Disclaimer: Portions of this note may have been generated using [employer] voice recognition software. Reasonable efforts were made to correct any dictation errors that resulted due to the programming of this software but some may still be present. Portions of this note including HPI, ROS, impression/plan, and examination may have been copied forward from previous notes as to provide important historical information essential in contributing to medical decision making. Documentation has been reviewed and edited as necessary to support clinical decision making for today's visit and to reflect my own independent evaluation of this patient. The time of this note does not reflect the time I saw the patient but the time that this note was written Time > 55 min Teodoro Toscano MD [1] No past medical history on file. [2] No past surgical history on file. [3] No Known Allergies [4] cholecalciferol, 125 mcg, oral, Daily levETIRAcetam, 500 mg, oral, Daily piperacillin-tazobactam, 2.25 g, intravenous, q12h sodium zirconium cyclosilicate, 10 g, oral, Every other day thiamine, 100 mg, oral, Daily [5] [6] PRN medications: HYDROmorphone, meclizine, vancomycin documented in this encounter [facility] Work Phone: 09-06-2024 Hospital course Narrative Discharge Diagnosis Hematoma Issues Requiring Follow-Up Hematoma: Monitor size, recommended follow up with PCP in about 1 week for CBC Discharge Meds Medication List CONTINUE taking these medications acetaminophen 325 mg tablet; Commonly known as: Tylenol amLODIPine 5 mg tablet; Commonly known as: Norvasc atorvastatin 40 mg tablet; Commonly known as: Lipitor D3-5000 ORAL Lokelma 10 gram packet; Generic drug: sodium zirconium cyclosilicate meclizine 25 mg tablet; Commonly known as: Antivert OMEGA-3 FATTY ACIDS ORAL thiamine 250 mg tablet; Commonly known as: Vitamin B-1 STOP taking these medications levETIRAcetam 500 mg tablet; Commonly known as: Keppra Test Results Pending At Discharge Pending Labs No current pending labs. Hospital Course Apoorva Gonzalez is a 74 y.o. female presenting with pmhx of seizures(on keppra), ESRD on dialysis TTS LUE fistula, and HTN who presented as transfer from [facility] for IR embolization of thigh hematoma. Note patient had a recent hospitalization at [facility] on 08/14 with sudden cardiac arrest, though to be sepsis due to R thigh and anterior hip abscess She underwent CT guided aspiration then I&D in OR, treated with IV Zosyn x7 days then discharged 08/24 to SNF with wound vac. Cultures reported to be negative. She re-presented to [facility] on 08/26 for increased pain in her right thigh. Admission CT showed concern for hematoma versus cellulitis of right thigh and patient was treated with IV Vanco and Zosyn, labs revealed hemoglobin of 6 from a baseline of 8, a CTA was obtained that showed expanding hematoma in right thigh. Patient status post 2 units packed RBC and incrementation to 8.1. Patient was transferred to [facility] for IF embolization of thigh hematoma. IR evaluated the patient and determined that there was not indication for IR embolization; elected to monitor clinically. Patient remained stable with stable H and H. Patient feels that thigh hematoma improving in size. ID consulted and recommended no further abx. Patient received dialysis inpatient with her last treatment on on 09/05 prior to discharge. Patient was discharged home in stable conditioned on 09/06 with home care. Pertinent Physical Exam At Time of Discharge Physical Exam Gen: Alert, well appearing, in NAD Head/Neck: normocephalic, atraumatic Eyes: anicteric sclerae, noninjected conjunctivae Nose: No congestion or rhinorrhea Mouth: MMM, oropharynx without erythema or lesions Heart: RRR, no murmurs, rubs, or gallops Lungs: No increased work of breathing, lungs clear bilaterally, no wheezing, crackles, rhonchi Abdomen: soft, NT, ND, no HSM, no palpable masses, good bowel sounds Musculoskeletal: no joint swelling Extremities: WWP, cap refill <2sec, stable R thigh hematoma decreased in size from prior Neurologic: Alert, symmetrical facies, phonates clearly Skin: no rashes Psychological: appropriate mood/affect Outpatient Follow-Up No future appointments. Levi Geronimo MD documented in this encounter [facility] Work Phone: 09-06-2024 Hospital Note Formatting of t his note might be different from the original. Apoorva Gonzalez is a 74 y.o. female presenting with pmhx of seizures(on keppra), ESRD on dialysis TTS LUE fistula, and HTN who presented as transfer from [facility] for IR embolization of thigh hematoma. Note patient had a recent hospitalization at [facility] on 08/14 with sudden cardiac arrest, though to be sepsis due to R thigh and anterior hip abscess She underwent CT guided aspiration then I&D in OR, treated with IV Zosyn x7 days then discharged 08/24 to SNF with wound vac. Cultures reported to be negative. She re-presented to [facility] on 08/26 for increased pain in her right thigh. Admission CT showed concern for hematoma versus cellulitis of right thigh and patient was treated with IV Vanco and Zosyn, labs revealed hemoglobin of 6 from a baseline of 8, a CTA was obtained that showed expanding hematoma in right thigh. Patient status post 2 units packed RBC and incrementation to 8.1. Patient was transferred to [facility] for IF embolization of thigh hematoma. IR evaluated the patient and determined that there was not indication for IR embolization; elected to monitor clinically. Patient remained stable with stable H and H. Patient feels that thigh hematoma improving in size. ID consulted and recommended no further abx. Patient received dialysis inpatient with her last treatment on on 09/05 prior to discharge. Patient was discharged home in stable conditioned on 09/06 with home care. [facility] Work Phone: 09-06-2024 Hospital Discharge instructions Levi Geronimo MD - 09/06/2024 1:14 PM EDT Ms. Gonzalez, You were admitted to the hospital a hematoma in your thigh. We have been closely monitoring your blood counts while you're here and those numbers have stabilized. Your thigh hematoma is improving. I would recommend that you follow up with your primary doctor in about 1 week to make sure you are continuing to improved and your blood counts are stable. It was a pleasure taking care of you at [facility]! Best, Dr. Levi Geronimo Ann Sheridan RN - 09/06/2024 1:31 PM EDT [facility] will provide your home care services. There contact number is . A nurse will contact you 24-48 hours post discharge to arrange services. documented in this encounter [facility] Work Phone: 09-06-2024 Plan of care note Problem: Pain Goal: Takes deep breaths with improved pain control throughout the shift Outcome: Progressing Goal: Turns in bed with improved pain control throughout the shift Outcome: Progressing Goal: Walks with improved pain control throughout the shift Outcome: Progressing Goal: Performs ADL's with improved pain control throughout shift Outcome: Progressing Goal: Participates in PT with improved pain control throughout the shift Outcome: Progressing Goal: Free from opioid side effects throughout the shift Outcome: Progressing Goal: Free from acute confusion related to pain meds throughout the shift Outcome: Progressing Problem: Fall/Injury Goal: Not fall by end of shift Outcome: Progressing Goal: Be free from injury by end of the shift Outcome: Progressing Goal: Verbalize understanding of personal risk factors for fall in the hospital Outcome: Progressing Goal: Verbalize understanding of risk factor reduction measures to prevent injury from fall in the home Outcome: Progressing Goal: Use assistive devices by end of the shift Outcome: Progressing The patient's goals for the shift include rest The clinical goals for the shift include Patient will remain safe and free from falls/injury the whole shift. Over the shift, the patient did make progress toward the following goals. [facility] Work Phone: 09-05-2024 Nurse Note Patient walked around this evening in the hallway with the walker and she tolerated it well. She said moving around helps lessen her pain. [facility] 09-05-2024 Nurse Note Patient walked around this evening in the hallway with the walker and she tolerated it well. She said moving around helps lessen her pain. Report to Receiving RN: Report To: CYNTHIA Cruz Time Report Called: [id number] Hand-Off Communication: pt stable, completed and tolerated HD tx, post vitals: 141/66, pulse 99, pt removed 2 liters Complications During Treatment: No Ultrafiltration Treatment: Yes Medications Administered During Dialysis: No Blood Products Administered During Dialysis: No Labs Sent During Dialysis: No Heparin Drip Rate Changes: No Dialysis Catheter Dressing: N/A Last Dressing Change: N/A, AVF Last Updated: 10:59 AM by AMELIA VALENZUELA Report from Sending RN: Report From: Jospehina Recent Surgery of Procedure: No Baseline Level of Consciousness (LOC): a/o x 4 Oxygen Use: No Type: none Diabetic: No Last BP Med Given Day of Dialysis: none Last Pain Med Given: Dilaudid 1 mg 0526 am Lab Tests to be Obtained with Dialysis: Yes, CBC & RFP Blood Transfusion to be Given During Dialysis: No Available IV Access: Yes Medications to be Administered During Dialysis: No Continuous IV Infusion Running: No Restraints on Currently or in the Last 24 Hours: No Hand-Off Communication: No acute overnight or morning events; vs- 141/66, 68, 96.8, 95%, 18 and wnl 1 hour prior to pt's arrival to the unit; pt will need morning labs; pt is able to stand with assistance; pt may go off unit without telemetry; pt is a full code. Nimisha Colón RN. Dialysis Catheter Dressing: left upper arm AVF Last Dressing Change: will assess when pt arrives to the unit. During shift change pt was found coming out of bathroom with walker, which was tolerated well. Pt is alert and denies pain with clear speech. Pt has no concerns at this time. Call light and essentials wnr of pt. Report to Receiving RN: Report To: CYNTHIA Pierre Time Report Called: [id number] Hand-Off Communication: Pt completed 3.5 hrs HD, 1.5L fluid removed, tolerated tx, BP 134/73, HR 83, pt stable, no issues. Complications During Treatment: No Ultrafiltration Treatment: Yes Medications Administered During Dialysis: No Blood Products Administered During Dialysis: No Labs Sent During Dialysis: Yes Heparin Drip Rate Changes: No Dialysis Catheter Dressing: N/A, AVF Last Dressing Change: N/A Last Updated: 10:45 AM by GUILHERME GONZALES Report from Sending RN: Report From: Jayleen Recent Surgery of Procedure: No Baseline Level of Consciousness (LOC): A and O x 4 Oxygen Use: No Type: ra Diabetic: No Last BP Med Given Day of Dialysis: None Last Pain Med Given: 0600 0.2 Dilaudid Lab Tests to be Obtained with Dialysis: Yes Blood Transfusion to be Given During Dialysis: No Available IV Access: Yes Medications to be Administered During Dialysis: No Continuous IV Infusion Running: No Restraints on Currently or in the Last 24 Hours: No Hand-Off Communication: Very pleasant, no acute events over night. Dialysis Catheter Dressing: AVF Last Dressing Change: AVF Report to Receiving RN: Report To: CYNTHIA Mack Time Report Called: 18:24 Hand-Off Communication: tolerated tx well, no issues or concerns, removed fluid goal of 1 Liter, post blood pressure 150/81 HR 97, alert and stable post tx Complications During Treatment: No Ultrafiltration Treatment: No Medications Administered During Dialysis: No Blood Products Administered During Dialysis: No Labs Sent During Dialysis: No Heparin Drip Rate Changes: N/A Dialysis Catheter Dressing: patient has a fistula Last Dressing Change: N/A Last Updated: 6:24 PM by DEISY CASTAÑEDA Pt hemoglobin 6.4. Md Toscano notified. Order to continue to monitor until next CBC draw. Report from Sending RN: Report From: CYNTHIA Mack Recent Surgery of Procedure: No Baseline Level of Consciousness (LOC): A/O X 4 Oxygen Use: No Type: N/A Diabetic: No Last BP Med Given Day of Dialysis: none Last Pain Med Given: yes, see EMAR Lab Tests to be Obtained with Dialysis: No Blood Transfusion to be Given During Dialysis: No Available IV Access: Yes Medications to be Administered During Dialysis: No Continuous IV Infusion Running: No Restraints on Currently or in the Last 24 Hours: No Hand-Off Communication: full code, no isolation, pt has a right thigh hematoma, travel by dialysis cart Dialysis Catheter Dressing: pt has a fistula Last Dressing Change: N/A Vitals at 13:00: BP 136/67 (MAP 83) HR 83 RR 18 Temp 36.4 documented in this encounter [facility] Work Phone: 09-05-2024 Plan of care note Problem: Pain - Adult Goal: Verbalizes/displays adequate comfort level or baseline comfort level Outcome: Progressing Problem: Safety - Adult Goal: Free from fall injury Outcome: Progressing Problem: Discharge Planning Goal: Discharge to home or other facility with appropriate resources Outcome: Progressing Problem: Chronic Conditions and Co-morbidities Goal: Patient's chronic conditions and co-morbidity symptoms are monitored and maintained or improved Outcome: Progressing Problem: Nutrition Goal: Nutrient intake appropriate for maintaining nutritional needs Outcome: Progressing Problem: Pain Goal: Takes deep breaths with improved pain control throughout the shift Outcome: Progressing Goal: Turns in bed with improved pain control throughout the shift Outcome: Progressing Goal: Walks with improved pain control throughout the shift Outcome: Progressing Goal: Performs ADL's with improved pain control throughout shift Outcome: Progressing Goal: Participates in PT with improved pain control throughout the shift Outcome: Progressing Goal: Free from opioid side effects throughout the shift Outcome: Progressing Goal: Free from acute confusion related to pain meds throughout the shift Outcome: Progressing Problem: Fall/Injury Goal: Not fall by end of shift Outcome: Progressing Goal: Be free from injury by end of the shift Outcome: Progressing Goal: Verbalize understanding of personal risk factors for fall in the hospital Outcome: Progressing Goal: Verbalize understanding of risk factor reduction measures to prevent injury from fall in the home Outcome: Progressing Goal: Use assistive devices by end of the shift Outcome: Progressing Goal: Pace activities to prevent fatigue by end of the shift Outcome: Progressing The patient's goals for the shift include rest The clinical goals for the shift include Pt will remain safe throughout shift [facility] Work Phone: 09-05-2024 Nurse Note Report to Receiving RN: Report To: CYNTHIA Cruz Time Report Called: [id number] Hand-Off Communication: pt stable, completed and tolerated HD tx, post vitals: 141/66, pulse 99, pt removed 2 liters Complications During Treatment: No Ultrafiltration Treatment: Yes Medications Administered During Dialysis: No Blood Products Administered During Dialysis: No Labs Sent During Dialysis: No Heparin Drip Rate Changes: No Dialysis Catheter Dressing: N/A Last Dressing Change: N/A, AVF Last Updated: 10:59 AM by AMELIA VALENZUELA [facility] 09-05-2024 Nurse Note Report from Sending RN: Report From: Mona Recent Surgery of Procedure: No Baseline Level of Consciousness (LOC): a/o x 4 Oxygen Use: No Type: none Diabetic: No Last BP Med Given Day of Dialysis: none Last Pain Med Given: Dilaudid 1 mg 0526 am Lab Tests to be Obtained with Dialysis: Yes, CBC & RFP Blood Transfusion to be Given During Dialysis: No Available IV Access: Yes Medications to be Administered During Dialysis: No Continuous IV Infusion Running: No Restraints on Currently or in the Last 24 Hours: No Hand-Off Communication: No acute overnight or morning events; vs- 141/66, 68, 96.8, 95%, 18 and wnl 1 hour prior to pt's arrival to the unit; pt will need morning labs; pt is able to stand with assistance; pt may go off unit without telemetry; pt is a full code. Nimisha Colón RN. Dialysis Catheter Dressing: left upper arm AVF Last Dressing Change: will assess when pt arrives to the unit. [facility] 09-05-2024 Plan of care note Problem: Pain Goal: Takes deep breaths with improved pain control throughout the shift Outcome: Progressing Goal: Turns in bed with improved pain control throughout the shift Outcome: Progressing Goal: Walks with improved pain control throughout the shift Outcome: Progressing Goal: Performs ADL's with improved pain control throughout shift Outcome: Progressing Goal: Free from opioid side effects throughout the shift Outcome: Progressing Goal: Free from acute confusion related to pain meds throughout the shift Outcome: Progressing The patient's goals for the shift include rest The clinical goals for the shift include Patient will be free from fall/injury the whole shift. Over the shift, the patient did not make progress toward the following goals. [facility] Work Phone: 09-04-2024 Nurse Note During shift change pt was found coming out of bathroom with walker, which was tolerated well. Pt is alert and denies pain with clear speech. Pt has no concerns at this time. Call light and essentials wnr of pt. [facility] 09-04-2024 Plan of care note Problem: Pain - Adult Goal: Verbalizes/displays adequate comfort level or baseline comfort level Outcome: Progressing Problem: Safety - Adult Goal: Free from fall injury Outcome: Progressing Problem: Discharge Planning Goal: Discharge to home or other facility with appropriate resources Outcome: Progressing Problem: Chronic Conditions and Co-morbidities Goal: Patient's chronic conditions and co-morbidity symptoms are monitored and maintained or improved Outcome: Progressing Problem: Nutrition Goal: Nutrient intake appropriate for maintaining nutritional needs Outcome: Progressing Problem: Pain Goal: Takes deep breaths with improved pain control throughout the shift Outcome: Progressing Goal: Turns in bed with improved pain control throughout the shift Outcome: Progressing Goal: Walks with improved pain control throughout the shift Outcome: Progressing Goal: Performs ADL's with improved pain control throughout shift Outcome: Progressing Goal: Participates in PT with improved pain control throughout the shift Outcome: Progressing Goal: Free from opioid side effects throughout the shift Outcome: Progressing Goal: Free from acute confusion related to pain meds throughout the shift Outcome: Progressing Problem: Fall/Injury Goal: Not fall by end of shift Outcome: Progressing Goal: Be free from injury by end of the shift Outcome: Progressing Goal: Verbalize understanding of personal risk factors for fall in the hospital Outcome: Progressing Goal: Verbalize understanding of risk factor reduction measures to prevent injury from fall in the home Outcome: Progressing Goal: Use assistive devices by end of the shift Outcome: Progressing Goal: Pace activities to prevent fatigue by end of the shift Outcome: Progressing [facility] 09-04-2024 Plan of care note The patient's goals for the shift include rest The clinical goals for the shift include Pt will reamin HDS during this shift Problem: Pain - Adult Goal: Verbalizes/displays adequate comfort level or baseline comfort level Outcome: Progressing Problem: Safety - Adult Goal: Free from fall injury Outcome: Progressing Problem: Nutrition Goal: Nutrient intake appropriate for maintaining nutritional needs Outcome: Progressing Problem: Pain Goal: Free from opioid side effects throughout the shift Outcome: Progressing Problem: Fall/Injury Goal: Not fall by end of shift Outcome: Progressing Goal: Be free from injury by end of the shift Outcome: Progressing [facility] 09-03-2024 Plan of care note The patient's goals for the shift include rest The clinical goals for the shift include Pt will remain safe and free from injury during shift Over the shift, the patient did not make progress toward the following goals. Barriers to progression include Problem: Pain - Adult Goal: Verbalizes/displays adequate comfort level or baseline comfort level Outcome: Progressing Problem: Chronic Conditions and Co-morbidities Goal: Patient's chronic conditions and co-morbidity symptoms are monitored and maintained or improved Outcome: Progressing Problem: Nutrition Goal: Nutrient intake appropriate for maintaining nutritional needs Outcome: Progressing [facility] 09-02-2024 Procedure note I evaluated the patient during dialysis. No complaints. BP: 128/73 BFR: 400 Anticipated fluid removal: 2L Vascular access: left upper arm AVF Plan: Continue TTS dialysis schedule. Jennifer [facility] Work Phone: 09-02-2024 Procedure note I evaluated the patient during dialysis. No complaints. BP: 128/73 BFR: 400 Anticipated fluid removal: 2L Vascular access: left upper arm AVF Plan: Continue TTS dialysis schedule. Jennifer documented in this encounter [facility] Work Phone: 09-02-2024 Nurse Note Report to Receiving RN: Report To: CYNTHIA Pierre Time Report Called: [id number] Hand-Off Communication: Pt completed 3.5 hrs HD, 1.5L fluid removed, tolerated tx, BP 134/73, HR 83, pt stable, no issues. Complications During Treatment: No Ultrafiltration Treatment: Yes Medications Administered During Dialysis: No Blood Products Administered During Dialysis: No Labs Sent During Dialysis: Yes Heparin Drip Rate Changes: No Dialysis Catheter Dressing: N/A, AVF Last Dressing Change: N/A Last Updated: 10:45 AM by GUILHERME GONZALES [facility] 09-02-2024 Plan of care note Problem: Pain - Adult Goal: Verbalizes/displays adequate comfort level or baseline comfort level Outcome: Progressing The patient's goals for the shift include rest The clinical goals for the shift include Pt will remain safe and free from injury during shift Over the shift, the patient did not make progress toward the following goals. Barriers to progression include Problem: Nutrition Goal: Nutrient intake appropriate for maintaining nutritional needs Outcome: Progressing Problem: Pain - Adult Goal: Verbalizes/displays adequate comfort level or baseline comfort level Outcome: Progressing [facility] Work Phone: 09-02-2024 Nurse Note Report from Sending RN: Report From: Jayleen Recent Surgery of Procedure: No Baseline Level of Consciousness (LOC): A and O x 4 Oxygen Use: No Type: ra Diabetic: No Last BP Med Given Day of Dialysis: None Last Pain Med Given: 0600 0.2 Dilaudid Lab Tests to be Obtained with Dialysis: Yes Blood Transfusion to be Given During Dialysis: No Available IV Access: Yes Medications to be Administered During Dialysis: No Continuous IV Infusion Running: No Restraints on Currently or in the Last 24 Hours: No Hand-Off Communication: Very pleasant, no acute events over night. Dialysis Catheter Dressing: AVF Last Dressing Change: AVF [facility] 09-02-2024 Plan of care note Problem: Pain - Adult Goal: Verbalizes/displays adequate comfort level or baseline comfort level Outcome: Progressing Problem: Safety - Adult Goal: Free from fall injury Outcome: Progressing Problem: Discharge Planning Goal: Discharge to home or other facility with appropriate resources Outcome: Progressing Problem: Chronic Conditions and Co-morbidities Goal: Patient's chronic conditions and co-morbidity symptoms are monitored and maintained or improved Outcome: Progressing Problem: Nutrition Goal: Nutrient intake appropriate for maintaining nutritional needs Outcome: Progressing Problem: Pain Goal: Takes deep breaths with improved pain control throughout the shift Outcome: Progressing Goal: Turns in bed with improved pain control throughout the shift Outcome: Progressing Goal: Walks with improved pain control throughout the shift Outcome: Progressing Goal: Performs ADL's with improved pain control throughout shift Outcome: Progressing Goal: Participates in PT with improved pain control throughout the shift Outcome: Progressing Goal: Free from opioid side effects throughout the shift Outcome: Progressing Goal: Free from acute confusion related to pain meds throughout the shift Outcome: Progressing Problem: Fall/Injury Goal: Not fall by end of shift Outcome: Progressing Goal: Be free from injury by end of the shift Outcome: Progressing Goal: Verbalize understanding of personal risk factors for fall in the hospital Outcome: Progressing Goal: Verbalize understanding of risk factor reduction measures to prevent injury from fall in the home Outcome: Progressing Goal: Use assistive devices by end of the shift Outcome: Progressing Goal: Pace activities to prevent fatigue by end of the shift Outcome: Progressing The patient's goals for the shift include rest The clinical goals for the shift include Pt will have less pain throughout this shift. Over the shift, the patient did not make progress toward the following goals. Barriers to progression include R leg hematoma. Recommendations to address these barriers include pain medication . 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 Imaging features consistent with hematoma without an obvious suspicious target for infection/abscess aspiration. [facility] Work Phone: 09-01-2024 Plan of care note Problem: Pain - Adult Goal: Verbalizes/displays adequate comfort level or baseline comfort level Outcome: Progressing Problem: Safety - Adult Goal: Free from fall injury Outcome: Progressing Problem: Discharge Planning Goal: Discharge to home or other facility with appropriate resources Outcome: Progressing Problem: Chronic Conditions and Co-morbidities Goal: Patient's chronic conditions and co-morbidity symptoms are monitored and maintained or improved Outcome: Progressing Problem: Nutrition Goal: Nutrient intake appropriate for maintaining nutritional needs Outcome: Progressing Problem: Pain Goal: Takes deep breaths with improved pain control throughout the shift Outcome: Progressing Goal: Turns in bed with improved pain control throughout the shift Outcome: Progressing Goal: Walks with improved pain control throughout the shift Outcome: Progressing Goal: Performs ADL's with improved pain control throughout shift Outcome: Progressing Goal: Participates in PT with improved pain control throughout the shift Outcome: Progressing Goal: Free from opioid side effects throughout the shift Outcome: Progressing Goal: Free from acute confusion related to pain meds throughout the shift Outcome: Progressing Problem: Fall/Injury Goal: Not fall by end of shift Outcome: Progressing Goal: Be free from injury by end of the shift Outcome: Progressing Goal: Verbalize understanding of personal risk factors for fall in the hospital Outcome: Progressing Goal: Verbalize understanding of risk factor reduction measures to prevent injury from fall in the home Outcome: Progressing Goal: Use assistive devices by end of the shift Outcome: Progressing Goal: Pace activities to prevent fatigue by end of the shift Outcome: Progressing The patient's goals for the shift include rest The clinical goals for the shift include Pt will have decreased pain throughout this shift. Over the shift, the patient did not make progress toward the following goals. Barriers to progression include R leg hematoma. Recommendations to address these barriers include surgery and pain medication. [facility] Work Phone: 08-31-2024 Nurse Note Report to Receiving RN: Report To: CYNTHIA Mack Time Report Called: 18:24 Hand-Off Communication: tolerated tx well, no issues or concerns, removed fluid goal of 1 Liter, post blood pressure 150/81 HR 97, alert and stable post tx Complications During Treatment: No Ultrafiltration Treatment: No Medications Administered During Dialysis: No Blood Products Administered During Dialysis: No Labs Sent During Dialysis: No Heparin Drip Rate Changes: N/A Dialysis Catheter Dressing: patient has a fistula Last Dressing Change: N/A Last Updated: 6:24 PM by DEISY CASTAÑEDA [facility] 08-31-2024 Nurse Note Pt hemoglobin 6.4. Md Toscano notified. Order to continue to monitor until next CBC draw. [facility] 08-31-2024 Consult note Associated Order (s): Inpatient consult to Nephrology Dialysis Inpatient consult to Nephrology Dialysis Consult performed by: Arianna Hogan MD Consult ordered by: Teodoro Toscano MD NEPHROLOGY NEW CONSULT NOTE Patient ID: Apoorva Gonzalez is a 74 y.o. female. Reason for consult: ESRD-HD HPI Apoorva Gonzalez is a 74 y.o. female - With past medical Hx of ESRD and seizures - Admitted for thigh hematoma - Nephrology was consulted for ESRD management She gets dialysis TTS [facility] in [place]. She states her treatments have been uneventful recently. Allergies[1] Meds: cholecalciferol, 125 mcg, Daily ferrous sulfate, 65 mg of elemental iron, q48h levETIRAcetam, 500 mg, Daily piperacillin-tazobactam, 2.25 g, q12h sodium zirconium cyclosilicate, 10 g, Every other day thiamine, 100 mg, Daily HYDROmorphone, 0.2 mg, q3h PRN meclizine, 25 mg, TID PRN vancomycin, , Daily PRN Heart Rate: [77-86] Temp: [35.7 C (96.3 F)-36.6 C (97.9 F)] Resp: [18] BP: (118-149)/(60-70) Height: [163 cm (5' 4.17)] Weight: [51.8 kg (114 lb 3.2 oz)] SpO2: [98 %-100 %] Weight: 51.8 kg (114 lb 3.2 oz) General appearance: Awake and alert, oriented, . No distress HEENT: supple, moist oral mucosa, no mouth ulcers Neck: No JVD Skin: no apparent rash Heart: heart sounds 1 & 2 present and normal, no murmurs heard or friction rub Lungs: Adequate air entry, no wheezing/crackles Abdomen: soft, non tender, no masses palpated, no flank tenderness Extremities: No edema, right thigh swelling ACCESS: LUE permanent access. Results from last 72 hours Lab Units 08/31/24 1218 08/31/24 0553 08/31/24 0051 SODIUM mmol/L -- 132* 132* POTASSIUM mmol/L -- 4.2 4.1 CO2 mmol/L -- 28 29 BUN mg/dL -- 45* 47* CREATININE mg/dL -- 7.69* 7.69* PHOSPHORUS mg/dL -- -- 7.0* CALCIUM mg/dL -- 7.3* 7.8* ALBUMIN g/dL -- -- 3.2* GLUCOSE mg/dL -- 74 86 WBC AUTO x10*3/uL 15.5* 14.4* 14.4* 15.5* A/P ESRD-HD admitted with thigh hematoma work up underway per primary team. Patient seen and examined while on dialysis, tolerating well. Labs, medications, recent events reviewed. Will follow overall management per primary team and continue regular dialysis while in house. Arianna Hogan MD [1] No Known Allergies T [facility] Work Phone: 08-31-2024 Consult note Associated Order (s): Inpatient consult to Nephrology Dialysis Inpatient consult to Nephrology Dialysis Consult performed by: Arianna Hogan MD Consult ordered by: Teodoro Toscano MD NEPHROLOGY NEW CONSULT NOTE Patient ID: Apoorva Gonzalez is a 74 y.o. female. Reason for consult: ESRD-HD HPI Apoorva Gonzalez is a 74 y.o. female - With past medical Hx of ESRD and seizures - Admitted for thigh hematoma - Nephrology was consulted for ESRD management She gets dialysis TTS at [facility] in [place]. She states her treatments have been uneventful recently. Allergies[1] Meds: cholecalciferol, 125 mcg, Daily ferrous sulfate, 65 mg of elemental iron, q48h levETIRAcetam, 500 mg, Daily piperacillin-tazobactam, 2.25 g, q12h sodium zirconium cyclosilicate, 10 g, Every other day thiamine, 100 mg, Daily HYDROmorphone, 0.2 mg, q3h PRN meclizine, 25 mg, TID PRN vancomycin, , Daily PRN Heart Rate: [77-86] Temp: [35.7 C (96.3 F)-36.6 C (97.9 F)] Resp: [18] BP: (118-149)/(60-70) Height: [163 cm (5' 4.17)] Weight: [51.8 kg (114 lb 3.2 oz)] SpO2: [98 %-100 %] Weight: 51.8 kg (114 lb 3.2 oz) General appearance: Awake and alert, oriented, . No distress HEENT: supple, moist oral mucosa, no mouth ulcers Neck: No JVD Skin: no apparent rash Heart: heart sounds 1 & 2 present and normal, no murmurs heard or friction rub Lungs: Adequate air entry, no wheezing/crackles Abdomen: soft, non tender, no masses palpated, no flank tenderness Extremities: No edema, right thigh swelling ACCESS: LUE permanent access. Results from last 72 hours Lab Units 08/31/24 1218 08/31/24 0553 08/31/24 0051 SODIUM mmol/L -- 132* 132* POTASSIUM mmol/L -- 4.2 4.1 CO2 mmol/L -- 28 29 BUN mg/dL -- 45* 47* CREATININE mg/dL -- 7.69* 7.69* PHOSPHORUS mg/dL -- -- 7.0* CALCIUM mg/dL -- 7.3* 7.8* ALBUMIN g/dL -- -- 3.2* GLUCOSE mg/dL -- 74 86 WBC AUTO x10*3/uL 15.5* 14.4* 14.4* 15.5* A/P ESRD-HD admitted with thigh hematoma work up underway per primary team. Patient seen and examined while on dialysis, tolerating well. Labs, medications, recent events reviewed. Will follow overall management per primary team and continue regular dialysis while in house. Arianna Hogan MD [1] No Known Allergies Associated Order(s): Inpatient consult to Infectious Diseases Inpatient consult to Infectious Diseases Consult performed by: Berta Chambers PA-C Consult ordered by: Teodoro Toscano MD Referred by Dr. Teodoro Heredia MD: No primary care provider on file. Reason For Consult R thigh abscess History Of Present Illness Apoorva Gonzalez is a 74 y.o. female with a PMHx of ESRD on HD (T,TH, Sat LUE fistula), HTN, HLD, chronic anemia who presented on 08/31 as a transfer from [facility] for further management of R thigh hematoma and possible IR embolization. Pt was recently hospitalized from 08/14-08/24/24 at [facility] for sudden cardiac arrest and sepsis thought to be due to R thigh and anterior hip abscess. R thigh abscess was aspirated on 08/16 with culture negative. Pt taken to the OR for I&D of R thigh abscess but no intra-op cultures due to lack of fluid/ pus. Pt treated with a 7-day course of Zosyn. Also of note, pt treated for CAP while hospitalized. Discharged to SNF on 08/24 w/ wound vac. On 08/26/2024, pt presented from [facility] to [facility] ED with increased RLE pain and swelling. Started on vancomycin and Zosyn. CT showed diffuse skin thickening and subcutaneous edema, multiple hypodense foci within ventral thigh musculature concerning for intramuscular abscesses, generalized ventral thigh muscular swelling which may reflect edema/ infection/ hematoma/ combination, no periosteal rxn, osseous destruction. CTA reportedly showed contrast pooling in R thigh hematoma w/ concern for active bleeding. Pt transferred to [facility] on 08/31 for further management and possible IR embolization. IR consulted and recommends conservative management with clinical monitoring and serial H&H. Pt evaluated while sitting in bed today. Endorses R thigh pain and tightness as well as diarrhea. Pt is having one loose bowel movement a day. Denies fever, chills, abdominal pain, N/V. On room air. Afebrile. White count 14.4. Past Medical History She has no past medical history on file. Surgical History She has no past surgical history on file. Social History Occupational History Not on file Tobacco Use Smoking status: Never Smokeless tobacco: Never Substance and Sexual Activity Alcohol use: Not on file Drug use: Not on file Sexual activity: Not on file Travel History Travel since 08/01/24 No documented travel since 08/01/24 Family History Family History[1] Allergies Patient has no known allergies. Immunization History Administered Date(s) Administered Moderna SARS-CoV-2 Vaccination 07/24/2020, 08/21/2020, 03/05/2021 Medications Home medications: Prescriptions Prior to Admission[2] Current medications: Scheduled medications Scheduled Medications[3] Continuous medications Continuous Medications[4] PRN medications PRN Medications[5] Review of Systems Constitutional: Negative for chills and fever. Cardiovascular: Negative for chest pain. Gastrointestinal: Positive for diarrhea. Negative for abdominal pain, nausea and vomiting. Musculoskeletal: R thigh pain Objective Range of Vitals (last 24 hours) Heart Rate: [77-83] Temp: [36.4 C (97.5 F)-36.6 C (97.9 F)] Resp: [18] BP: (118-136)/(60-67) Height: [163 cm (5' 4.17)] Weight: [51.8 kg (114 lb 3.2 oz)] SpO2: [98 %-100 %] Daily Weight 08/31/24 : 51.8 kg (114 lb 3.2 oz) Body mass index is 19.5 kg/m . Physical Exam Constitutional: General: She is not in acute distress. Appearance: Normal appearance. HENT: Head: Normocephalic and atraumatic. Mouth/Throat: Mouth: Mucous membranes are moist. Eyes: Extraocular Movements: Extraocular movements intact. Cardiovascular: Rate and Rhythm: Normal rate and regular rhythm. Pulmonary: Effort: Pulmonary effort is normal. Breath sounds: Normal breath sounds. Abdominal: General: Abdomen is flat. Palpations: Abdomen is soft. Musculoskeletal: Comments: R thigh with rosey wrap and silver dressing Skin is very taut and firm to touch Neurological: Mental Status: She is alert and oriented to person, place, and time. Psychiatric: Mood and Affect: Mood normal. Behavior: Behavior normal. Relevant Results Labs Results from last 72 hours Lab Units 08/31/24 1218 08/31/24 0553 08/31/24 0051 WBC AUTO x10*3/uL 15.5* 14.4* 14.4* 15.5* HEMOGLOBIN g/dL 7.2* 7.2* 7.2* 7.0* HEMATOCRIT % 22.7* 22.2* 22.2* 21.9* PLATELETS AUTO x10*3/uL 353 332 332 341 NEUTROS PCT AUTO % 79.7 74.2 75.7 LYMPHS PCT AUTO % 8.8 12.3 11.4 MONOS PCT AUTO % 7.1 8.7 8.6 EOS PCT AUTO % 2.4 3.2 2.5 Results from last 72 hours Lab Units 08/31/24 0553 08/31/24 0051 SODIUM mmol/L 132* 132* POTASSIUM mmol/L 4.2 4.1 CHLORIDE mmol/L 89* 88* CO2 mmol/L 28 29 BUN mg/dL 45* 47* CREATININE mg/dL 7.69* 7.69* GLUCOSE mg/dL 74 86 CALCIUM mg/dL 7.3* 7.8* ANION GAP mmol/L 19 19 EGFR mL/min/1.73m*2 5* 5* PHOSPHORUS mg/dL -- 7.0* Results from last 72 hours Lab Units 08/31/24 0051 ALK PHOS U/L 89 BILIRUBIN TOTAL mg/dL 0.7 PROTEIN TOTAL g/dL 5.8* ALT U/L 18 AST U/L 43* ALBUMIN g/dL 3.2* Estimated Creatinine Clearance: 5.2 mL/min (A) (by C-G formula based on SCr of 7.69 mg/dL (H)). No results found for: CRP, SEDRATE No results found for: HIV1X2, HIVCONF, [id number] No results found for: HEPCABINIT, HEPCAB, HCVPCRQUANT Microbiology Imaging Assessment/Plan Apoorva Gonzalez is a 74 y.o. female with a PMHx of ESRD on HD (T,TH, Sat LUE fistula), HTN, HLD, chronic anemia for whom ID is consulted for R thigh abscess. Pt hospitalized from 08/14-08/24 with sepsis and R thigh abscess/ hematoma. Aspiration R thigh performed on 08/16 with culture negative. Taken to the OR for I&D on 08/17 with no intra-op cultures due to lack of fluid/ pus. Treated with seven-day course of Zosyn. Presenting again with increased thigh pain and swelling. Pt started on vancomycin and Zosyn on 08/27. Inflammatory markers at OSH elevated with CRP 34.56 (mg/dL) and ESR 35. White count 14.4 on 08/31. 08/16 R thigh aspirate culture was negative. Pt then treated with 7-day course of Zosyn. Not convinced currently that there is infection in the R thigh. Recommend getting another aspirate or even open biopsy. Also recommend ortho consult to review imaging and weigh in as well. Can stop antibiotics and closely observe. Recommendations: 1) Aspirate or even biopsy of R thigh 2) Ortho consult 3) Can stop Zosyn and vancomycin ID will continue to follow. Case and plan were discussed with the ID attending, Dr. Hollis. I spent 60 minutes in the professional and overall care of this patient. Berta Chambers PA-C Infectious Disease Team B [facility] preferred [1] No family history on file. [2] Medications Prior to Admission Medication Sig Dispense Refill Last Dose/Taking acetaminophen (Tylenol) 325 mg tablet Take 2 tablets (650 mg) by mouth every 6 hours if needed (elevated temperature >100 degress and general discomfort). amLODIPine (Norvasc) 5 mg tablet Take 1 tablet (5 mg) by mouth once daily. atorvastatin (Lipitor) 40 mg tablet Take 1 tablet (40 mg) by mouth once daily at bedtime. calcium acetate (Phoslo) 667 mg capsule Take 1 capsule (667 mg) by mouth 3 times daily (morning, midday, late afternoon). cholecalciferol, vitamin D3, (D3-5000 ORAL) Take 1 tablet by mouth once daily. levETIRAcetam (Keppra) 500 mg tablet Take 1 tablet (500 mg) by mouth once daily. meclizine (Antivert) 25 mg tablet Take 1 tablet (25 mg) by mouth 3 times a day as needed for dizziness. OMEGA-3 FATTY ACIDS ORAL Take 1,000 mg by mouth once daily. sodium zirconium cyclosilicate (Lokelma) 10 gram packet Take 10 g by mouth 3 (three) times a week. Mon/wed/fri thiamine (Vitamin B-1) 250 mg tablet Take 1 tablet (250 mg) by mouth once daily. [3] cholecalciferol, 125 mcg, oral, Daily ferrous sulfate, 65 mg of elemental iron, oral, q48h levETIRAcetam, 500 mg, oral, Daily piperacillin-tazobactam, 2.25 g, intravenous, q12h sodium zirconium cyclosilicate, 10 g, oral, Every other day thiamine, 100 mg, oral, Daily [4] [5] PRN medications: HYDROmorphone, meclizine, vancomycin Associated Order(s): PHARMACY TO DOSE VANCO Vancomycin Dosing by Pharmacy- INITIAL Apoorva Gonzalez is a 74 y.o. year old female who Pharmacy has been consulted for vancomycin dosing for cellulitis, skin and soft tissue. Based on the patient's indication and renal status this patient will be dosed based on a goal trough/random level of 15-20. Renal function: Hemodialysis on //Wed Visit Vitals BP 134/64 (BP Location: Right arm) Pulse 77 Temp 36.6 C (97.9 F) (Temporal) Resp 18 No results found for: CREATININE Patient weight is as follows: Vitals: 08/31/24 0134 Weight: 51.8 kg (114 lb 3.2 oz) Cultures: No results found for the encounter in last 14 days. No intake/output data recorded. I/O during current shift: No intake/output data recorded. Temp (24hrs), Av.6 C (97.9 F), Min:36.5 C (97.7 F), Max:36.7 C (98.1 F) Assessment/Plan Patient will not be given a loading dose. Will initiate vancomycin maintenance, a one time dose of 500 mg. Follow-up level will be ordered per nephro dialysis schedule Will continue to monitor renal function daily while on vancomycin and order serum creatinine at least every 48 hours if not already ordered. Follow for continued vancomycin needs, clinical response, and signs/symptoms of toxicity. Evelia Mejia PharmD documented in this encounter [facility] Work Phone: 08-31-2024 Consult note Associated Order (s): Inpatient consult to Infectious Diseases Inpatient consult to Infectious Diseases Consult performed by: Berta Chambers PA-C Consult ordered by: Teodoro Toscano MD Referred by Dr. Teodoro Toscano Primary MD: No primary care provider on file. Reason For Consult R thigh abscess History Of Present Illness Apoorva Gonzalez is a 74 y.o. female with a PMHx of ESRD on HD (T,TH, Sat LUE fistula), HTN, HLD, chronic anemia who presented on 08/31 as a transfer from [facility] for further management of R thigh hematoma and possible IR embolization. Pt was recently hospitalized from 08/14-08/24/24 at [facility] for sudden cardiac arrest and sepsis thought to be due to R thigh and anterior hip abscess. R thigh abscess was aspirated on 08/16 with culture negative. Pt taken to the OR for I&D of R thigh abscess but no intra-op cultures due to lack of fluid/ pus. Pt treated with a 7-day course of Zosyn. Also of note, pt treated for CAP while hospitalized. Discharged to SNF on 08/24 w/ wound vac. On 08/26/2024, pt presented from [facility] to [facility] ED with increased RLE pain and swelling. Started on vancomycin and Zosyn. CT showed diffuse skin thickening and subcutaneous edema, multiple hypodense foci within ventral thigh musculature concerning for intramuscular abscesses, generalized ventral thigh muscular swelling which may reflect edema/ infection/ hematoma/ combination, no periosteal rxn, osseous destruction. CTA reportedly showed contrast pooling in R thigh hematoma w/ concern for active bleeding. Pt transferred to [facility] on 08/31 for further management and possible IR embolization. IR consulted and recommends conservative management with clinical monitoring and serial H&H. Pt evaluated while sitting in bed today. Endorses R thigh pain and tightness as well as diarrhea. Pt is having one loose bowel movement a day. Denies fever, chills, abdominal pain, N/V. On room air. Afebrile. White count 14.4. Past Medical History She has no past medical history on file. Surgical History She has no past surgical history on file. Social History Occupational History Not on file Tobacco Use Smoking status: Never Smokeless tobacco: Never Substance and Sexual Activity Alcohol use: Not on file Drug use: Not on file Sexual activity: Not on file Travel History Travel since 08/01/24 No documented travel since 08/01/24 Family History Family History[1] Allergies Patient has no known allergies. Immunization History Administered Date(s) Administered Moderna SARS-CoV-2 Vaccination 07/24/2020, 08/21/2020, 03/05/2021 Medications Home medications: Prescriptions Prior to Admission[2] Current medications: Scheduled medications Scheduled Medications[3] Continuous medications Continuous Medications[4] PRN medications PRN Medications[5] Review of Systems Constitutional: Negative for chills and fever. Cardiovascular: Negative for chest pain. Gastrointestinal: Positive for diarrhea. Negative for abdominal pain, nausea and vomiting. Musculoskeletal: R thigh pain Objective Range of Vitals (last 24 hours) Heart Rate: [77-83] Temp: [36.4 C (97.5 F)-36.6 C (97.9 F)] Resp: [18] BP: (118-136)/(60-67) Height: [163 cm (5' 4.17)] Weight: [51.8 kg (114 lb 3.2 oz)] SpO2: [98 %-100 %] Daily Weight 08/31/24 : 51.8 kg (114 lb 3.2 oz) Body mass index is 19.5 kg/m . Physical Exam Constitutional: General: She is not in acute distress. Appearance: Normal appearance. HENT: Head: Normocephalic and atraumatic. Mouth/Throat: Mouth: Mucous membranes are moist. Eyes: Extraocular Movements: Extraocular movements intact. Cardiovascular: Rate and Rhythm: Normal rate and regular rhythm. Pulmonary: Effort: Pulmonary effort is normal. Breath sounds: Normal breath sounds. Abdominal: General: Abdomen is flat. Palpations: Abdomen is soft. Musculoskeletal: Comments: R thigh with rosey wrap and silver dressing Skin is very taut and firm to touch Neurological: Mental Status: She is alert and oriented to person, place, and time. Psychiatric: Mood and Affect: Mood normal. Behavior: Behavior normal. Relevant Results Labs Results from last 72 hours Lab Units 08/31/24 1218 08/31/24 0553 08/31/24 0051 WBC AUTO x10*3/uL 15.5* 14.4* 14.4* 15.5* HEMOGLOBIN g/dL 7.2* 7.2* 7.2* 7.0* HEMATOCRIT % 22.7* 22.2* 22.2* 21.9* PLATELETS AUTO x10*3/uL 353 332 332 341 NEUTROS PCT AUTO % 79.7 74.2 75.7 LYMPHS PCT AUTO % 8.8 12.3 11.4 MONOS PCT AUTO % 7.1 8.7 8.6 EOS PCT AUTO % 2.4 3.2 2.5 Results from last 72 hours Lab Units 08/31/24 0553 08/31/24 0051 SODIUM mmol/L 132* 132* POTASSIUM mmol/L 4.2 4.1 CHLORIDE mmol/L 89* 88* CO2 mmol/L 28 29 BUN mg/dL 45* 47* CREATININE mg/dL 7.69* 7.69* GLUCOSE mg/dL 74 86 CALCIUM mg/dL 7.3* 7.8* ANION GAP mmol/L 19 19 EGFR mL/min/1.73m*2 5* 5* PHOSPHORUS mg/dL -- 7.0* Results from last 72 hours Lab Units 08/31/24 0051 ALK PHOS U/L 89 BILIRUBIN TOTAL mg/dL 0.7 PROTEIN TOTAL g/dL 5.8* ALT U/L 18 AST U/L 43* ALBUMIN g/dL 3.2* Estimated Creatinine Clearance: 5.2 mL/min (A) (by C-G formula based on SCr of 7.69 mg/dL (H)). No results found for: CRP, SEDRATE No results found for: HIV1X2, HIVCONF, [id number] No results found for: HEPCABINIT, HEPCAB, HCVPCRQUANT Microbiology Imaging Assessment/Plan Apoorva Gonzalez is a 74 y.o. female with a PMHx of ESRD on HD (T,TH, Sat LUE fistula), HTN, HLD, chronic anemia for whom ID is consulted for R thigh abscess. Pt hospitalized from 08/14-08/24 with sepsis and R thigh abscess/ hematoma. Aspiration R thigh performed on 08/16 with culture negative. Taken to the OR for I&D on 08/17 with no intra-op cultures due to lack of fluid/ pus. Treated with seven-day course of Zosyn. Presenting again with increased thigh pain and swelling. Pt started on vancomycin and Zosyn on 08/27. Inflammatory markers at OSH elevated with CRP 34.56 (mg/dL) and ESR 35. White count 14.4 on 08/31. 08/16 R thigh aspirate culture was negative. Pt then treated with 7-day course of Zosyn. Not convinced currently that there is infection in the R thigh. Recommend getting another aspirate or even open biopsy. Also recommend ortho consult to review imaging and weigh in as well. Can stop antibiotics and closely observe. Recommendations: 1) Aspirate or even biopsy of R thigh 2) Ortho consult 3) Can stop Zosyn and vancomycin ID will continue to follow. Case and plan were discussed with the ID attending, Dr. Hollis. I spent 60 minutes in the professional and overall care of this patient. Berta Chambers PA-C Infectious Disease Team B [facility] preferred [1] No family history on file. [2] Medications Prior to Admission Medication Sig Dispense Refill Last Dose/Taking acetaminophen (Tylenol) 325 mg tablet Take 2 tablets (650 mg) by mouth every 6 hours if needed (elevated temperature >100 degress and general discomfort). amLODIPine (Norvasc) 5 mg tablet Take 1 tablet (5 mg) by mouth once daily. atorvastatin (Lipitor) 40 mg tablet Take 1 tablet (40 mg) by mouth once daily at bedtime. calcium acetate (Phoslo) 667 mg capsule Take 1 capsule (667 mg) by mouth 3 times daily (morning, midday, late afternoon). cholecalciferol, vitamin D3, (D3-5000 ORAL) Take 1 tablet by mouth once daily. levETIRAcetam (Keppra) 500 mg tablet Take 1 tablet (500 mg) by mouth once daily. meclizine (Antivert) 25 mg tablet Take 1 tablet (25 mg) by mouth 3 times a day as needed for dizziness. OMEGA-3 FATTY ACIDS ORAL Take 1,000 mg by mouth once daily. sodium zirconium cyclosilicate (Lokelma) 10 gram packet Take 10 g by mouth 3 (three) times a week. Mon/wed/fri thiamine (Vitamin B-1) 250 mg tablet Take 1 tablet (250 mg) by mouth once daily. [3] cholecalciferol, 125 mcg, oral, Daily ferrous sulfate, 65 mg of elemental iron, oral, q48h levETIRAcetam, 500 mg, oral, Daily piperacillin-tazobactam, 2.25 g, intravenous, q12h sodium zirconium cyclosilicate, 10 g, oral, Every other day thiamine, 100 mg, oral, Daily [4] [5] PRN medications: HYDROmorphone, meclizine, vancomycin [facility] Work Phone: 08-31-2024 Nurse Note Report from Sending RN: Report From: CYNTHIA Mack Recent Surgery of Procedure: No Baseline Level of Consciousness (LOC): A/O X 4 Oxygen Use: No Type: N/A Diabetic: No Last BP Med Given Day of Dialysis: none Last Pain Med Given: yes, see EMAR Lab Tests to be Obtained with Dialysis: No Blood Transfusion to be Given During Dialysis: No Available IV Access: Yes Medications to be Administered During Dialysis: No Continuous IV Infusion Running: No Restraints on Currently or in the Last 24 Hours: No Hand-Off Communication: full code, no isolation, pt has a right thigh hematoma, travel by dialysis cart Dialysis Catheter Dressing: pt has a fistula Last Dressing Change: N/A Vitals at 13:00: BP 136/67 (MAP 83) HR 83 RR 18 Temp 36.4 [facility] Work Phone: 08-31-2024 Plan of care note The patient's goals for the shift include rest The clinical goals for the shift include pt will remain safe during shift [facility] Work Phone: 08-31-2024 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 Patient recently hospitalized at OSH from 08/14-08/24 for sudden cardiac arrest and sepsis, likely 2/2 right thigh/hip abscess, s/p I&D and antibiotics. CTA runoff on 08/29/24 demonstrated right anterior thigh hematoma with findings concerning for active bleeding. Hb was 6.5 which increased to 8 following 2 units pRBC. The case was discussed with Interventional radiology in the morning of 08/30, with plan for transfer to [facility] for potential embolization. The patient arrived to [facility] around 0001 08/31/24. Initial Hb was 7.0, and patient was hemodynamically stable. Decision was made to conservatively manage the patient overnight. Repeat Hb in the morning was 7.2, and the patient continued to be hemodynamically stable. At this point, there is no indication for IR embolization, and conservative management is encouraged. If there is concern for significant active bleeding or acute clinical decompensation, would recommend repeat CTA of the thigh, and to reach out to the interventional radiology service. Reviewed and approved by JUSTINE ROQUE on 08/31/24 at 9:02 AM. [facility] Work Phone: 08-31-2024 Consult note Associated Order (s): PHARMACY TO DOSE VANCO Vancomycin Dosing by Pharmacy- INITIAL Apoorva Gonzalez is a 74 y.o. year old female who Pharmacy has been consulted for vancomycin dosing for cellulitis, skin and soft tissue. Based on the patient's indication and renal status this patient will be dosed based on a goal trough/random level of 15-20. Renal function: Hemodialysis on T//Wed Visit Vitals BP 134/64 (BP Location: Right arm) Pulse 77 Temp 36.6 C (97.9 F) (Temporal) Resp 18 No results found for: CREATININE Patient weight is as follows: Vitals: 08/31/24 0134 Weight: 51.8 kg (114 lb 3.2 oz) Cultures: No results found for the encounter in last 14 days. No intake/output data recorded. I/O during current shift: No intake/output data recorded. Temp (24hrs), Av.6 C (97.9 F), Min:36.5 C (97.7 F), Max:36.7 C (98.1 F) Assessment/Plan Patient will not be given a loading dose. Will initiate vancomycin maintenance, a one time dose of 500 mg. Follow-up level will be ordered per nephro dialysis schedule Will continue to monitor renal function daily while on vancomycin and order serum creatinine at least every 48 hours if not already ordered. Follow for continued vancomycin needs, clinical response, and signs/symptoms of toxicity. Evelia Mejia PharmD [facility] Work Phone: 08-31-2024 Plan of care note Problem: Pain - Adult Goal: Verbalizes/displays adequate comfort level or baseline comfort level Outcome: Progressing Problem: Safety - Adult Goal: Free from fall injury Outcome: Progressing Problem: Discharge Planning Goal: Discharge to home or other facility with appropriate resources Outcome: Progressing Problem: Chronic Conditions and Co-morbidities Goal: Patient's chronic conditions and co-morbidity symptoms are monitored and maintained or improved Outcome: Progressing Problem: Nutrition Goal: Nutrient intake appropriate for maintaining nutritional needs Outcome: Progressing The patient's goals for the shift include rest The clinical goals for the shift include Pt will be safe and free from injury during shift [facility] Work Phone: 08-31-2024 History and physical note History Of Present Illness Apoorva Gonzalez is a 74 y.o. female presenting with pmhx of seizures(on keppra), ESRD on dialysis Tths LUE fistula, HTN, [facility] . Patient initially presented to outside hospital on 08/26 for increased pain in her right thigh. Admission CT showed concern for hematoma versus cellulitis of right thigh and patient was treated with IV Vanco and Zosyn, labs yesterday revealed hemoglobin of 6 from a baseline of 8, a CTA was obtained that showed expanding hematoma in right thigh. Patient status post 2 units packed RBC and incrementation to 8.1 and plan to transfer to our difficult facility for intervention. Of note: Recent hospitalization at [facility] on 08/14 with sudden cardiac arrest, though to be sepsis due to R thigh and anterior hip abscess, underwent CT guided aspiration then I&D in OR, treated with IV Zosyn x7 days then discharged 08/24 to SNF with wound vac. Upon arrival: Patient endorses no pain, endorses that right-sided mass has been expanding, is tender to palpation, however pain has been managed with outside hospital opioids. Sensation intact in the lower legs, pulses equal. Patient denies any episodes of dizziness, loss of consciousness, nausea, vomiting, fever, cough. Home meds: amlodipine 5 Astralgus 1 ml TID Keppra 500 mg daily Lipitor 40 mg Lokelma 10mg three times a week Meclizine 25 mg Mylanta prm Thiamine 250 Vitamin D 125 mcg Past Medical History Medical History[1] Surgical History Surgical History[2] Social History She reports that she has never smoked. She has never used smokeless tobacco. No history on file for alcohol use and drug use. Family History Family History[3] Allergies Patient has no known allergies. Physical Exam Constitutional: Well-developed female in no acute distress. HEENT: Normocephalic, atraumatic. PERRL. EOMI. No cervical lymphadenopathy. Respiratory: CTA bilaterally. No wheezes, rales, or rhonchi. Normal respiratory effort. Cardiovascular: RRR. No murmurs, gallops, or rubs. No JVD. Radial pulses 2+. Abdominal: Soft, nondistended, nontender to palpation. Bowel sounds present. No hepatosplenomegaly or masses. No CVA tenderness. Neuro: CN II-XII intact. UE and LE strength 5/5 bilaterally and sensation intact. Normal FTN testing. MSK: Right thigh with circumferential enlargement, warm and hard to touch, pulses and sensation preserved bilaterally Skin: Warm, dry. No rashes or wounds. Psych: Appropriate mood and affect. Last Recorded Vitals Blood pressure 134/64, pulse 77, temperature 36.6 C (97.9 F), temperature source Temporal, resp. rate 18, height 1.63 m (5' 4.17), weight 51.8 kg (114 lb 3.2 oz), SpO2 98%. Relevant Results Active Medications Scheduled medications Scheduled Medications[4] Continuous medications Continuous Medications[5] PRN medications PRN Medications[6] Recent Labs Results for orders placed or performed during the hospital encounter of 08/30/24 (from the past 24 hours) CBC and Auto Differential Result Value Ref Range WBC 15.5 (H) 4.4 - 11.3 x10*3/uL nRBC 0.0 0.0 - 0.0 /100 WBCs RBC 2.30 (L) 4.00 - 5.20 x10*6/uL Hemoglobin 7.0 (L) 12.0 - 16.0 g/dL Hematocrit 21.9 (L) 36.0 - 46.0 % MCV 95 80 - 100 fL MCH 30.4 26.0 - 34.0 pg MCHC 32.0 32.0 - 36.0 g/dL RDW 16.3 (H) 11.5 - 14.5 % Platelets 341 150 - 450 x10*3/uL Neutrophils % 75.7 40.0 - 80.0 % Immature Granulocytes %, Automated 0.6 0.0 - 0.9 % Lymphocytes % 11.4 13.0 - 44.0 % Monocytes % 8.6 2.0 - 10.0 % Eosinophils % 2.5 0.0 - 6.0 % Basophils % 1.2 0.0 - 2.0 % Neutrophils Absolute 11.75 (H) 1.60 - 5.50 x10*3/uL Immature Granulocytes Absolute, Automated 0.09 0.00 - 0.50 x10*3/uL Lymphocytes Absolute 1.77 0.80 - 3.00 x10*3/uL Monocytes Absolute 1.34 (H) 0.05 - 0.80 x10*3/uL Eosinophils Absolute 0.39 0.00 - 0.40 x10*3/uL Basophils Absolute 0.18 (H) 0.00 - 0.10 x10*3/uL Coagulation Screen Result Value Ref Range Protime 11.4 9.8 - 12.4 seconds INR 1.0 0.9 - 1.1 aPTT 25 (L) 26 - 36 seconds Imaging Imaging No results found. Cardiology, Vascular, and Other Imaging No other imaging results found for the past 2 days Assessment & Plan Hematoma Apoorva Gonzalez is a 74 y.o. female presenting with pmhx of seizures(on keppra), ESRD on dialysis Tths LUE fistula, HTN, [facility] for R thigh hematoma, s/p 2 unit prbc this am for hg of 6.2, labs showing hg drop to 7.0 from 8.1 this am however vitally stable w/o signs of compartment syndrome, not in any pain. IR aware and plan to intervene in the AM. Will cw vanc zosyn for suspected cellulitis. #Right anterior thigh cellulitis and hematoma :: was on vanc zosyn at OSH :: reffered here for IR intervention :: IR aware and tentative plan for intervention in am - cw vanc/zosyn , first day was 08/27 - npo - 0.2 mg iv dilaudid prn severe pain, 5mg oxy prn moderate pain - q6h cbc #ESRD on dialysis :: LUE fistula :: TThS [ ] consult renal in am - cw florenciakelma 10 on non dialysis days #acute on chronic anemia :: labs suggesting anemia of chronic disease, re-obtain labs here #hx of seizures cw keppra F: as needed E: K>4 Mg>2 N: npo A: PIV DVT Ppx: none GI Ppx: none Code status: full code NOK: Extended Emergency Contact Information Primary Emergency Contact: Edward mandel Mobile Relation: Significant Other Preferred language: Cambodian Technical Coordinator needed? No Cory Montelongo MD [1] No past medical history on file. [2] No past surgical history on file. [3] No family history on file. [4] cholecalciferol, 125 mcg, oral, Daily levETIRAcetam, 500 mg, oral, Daily oxyCODONE, 5 mg, oral, Once piperacillin-tazobactam, 3.375 g, intravenous, q6h sodium zirconium cyclosilicate, 10 g, oral, Every other day thiamine, 100 mg, oral, Daily [5] [6] PRN medications: HYDROmorphone, meclizine, vancomycin Cosigned by Arsenio Lombardo MD at 08/31/2024 7:00 AM EDT Associated attestation - Arsenio Robles MD - 08/31/2024 7:00 AM EDT I saw and evaluated the patient. I personally obtained the saavedra and critical portions of the history and physical exam or was physically present for saavedra and critical portions performed by the resident. I reviewed the resident's documentation and discussed the patient with the resident. I agree with the resident s medical decision making as documented in the note. [facility] Work Phone: 08-31-2024 History and physical note History Of Present Illness Apoorva Gonzalez is a 74 y.o. female presenting with pmhx of seizures(on keppra), ESRD on dialysis Tths LUE fistula, HTN, [facility] . Patient initially presented to outside hospital on 08/26 for increased pain in her right thigh. Admission CT showed concern for hematoma versus cellulitis of right thigh and patient was treated with IV Vanco and Zosyn, labs yesterday revealed hemoglobin of 6 from a baseline of 8, a CTA was obtained that showed expanding hematoma in right thigh. Patient status post 2 units packed RBC and incrementation to 8.1 and plan to transfer to our difficult facility for intervention. Of note: Recent hospitalization at [facility] on 08/14 with sudden cardiac arrest, though to be sepsis due to R thigh and anterior hip abscess, underwent CT guided aspiration then I&D in OR, treated with IV Zosyn x7 days then discharged 08/24 to SNF with wound vac. Upon arrival: Patient endorses no pain, endorses that right-sided mass has been expanding, is tender to palpation, however pain has been managed with outside hospital opioids. Sensation intact in the lower legs, pulses equal. Patient denies any episodes of dizziness, loss of consciousness, nausea, vomiting, fever, cough. Home meds: amlodipine 5 Astralgus 1 ml TID Keppra 500 mg daily Lipitor 40 mg Lokelma 10mg three times a week Meclizine 25 mg Mylanta prm Thiamine 250 Vitamin D 125 mcg Past Medical History Medical History[1] Surgical History Surgical History[2] Social History She reports that she has never smoked. She has never used smokeless tobacco. No history on file for alcohol use and drug use. Family History Family History[3] Allergies Patient has no known allergies. Physical Exam Constitutional: Well-developed female in no acute distress. HEENT: Normocephalic, atraumatic. PERRL. EOMI. No cervical lymphadenopathy. Respiratory: CTA bilaterally. No wheezes, rales, or rhonchi. Normal respiratory effort. Cardiovascular: RRR. No murmurs, gallops, or rubs. No JVD. Radial pulses 2+. Abdominal: Soft, nondistended, nontender to palpation. Bowel sounds present. No hepatosplenomegaly or masses. No CVA tenderness. Neuro: CN II-XII intact. UE and LE strength 5/5 bilaterally and sensation intact. Normal FTN testing. MSK: Right thigh with circumferential enlargement, warm and hard to touch, pulses and sensation preserved bilaterally Skin: Warm, dry. No rashes or wounds. Psych: Appropriate mood and affect. Last Recorded Vitals Blood pressure 134/64, pulse 77, temperature 36.6 C (97.9 F), temperature source Temporal, resp. rate 18, height 1.63 m (5' 4.17), weight 51.8 kg (114 lb 3.2 oz), SpO2 98%. Relevant Results Active Medications Scheduled medications Scheduled Medications[4] Continuous medications Continuous Medications[5] PRN medications PRN Medications[6] Recent Labs Results for orders placed or performed during the hospital encounter of 08/30/24 (from the past 24 hours) CBC and Auto Differential Result Value Ref Range WBC 15.5 (H) 4.4 - 11.3 x10*3/uL nRBC 0.0 0.0 - 0.0 /100 WBCs RBC 2.30 (L) 4.00 - 5.20 x10*6/uL Hemoglobin 7.0 (L) 12.0 - 16.0 g/dL Hematocrit 21.9 (L) 36.0 - 46.0 % MCV 95 80 - 100 fL MCH 30.4 26.0 - 34.0 pg MCHC 32.0 32.0 - 36.0 g/dL RDW 16.3 (H) 11.5 - 14.5 % Platelets 341 150 - 450 x10*3/uL Neutrophils % 75.7 40.0 - 80.0 % Immature Granulocytes %, Automated 0.6 0.0 - 0.9 % Lymphocytes % 11.4 13.0 - 44.0 % Monocytes % 8.6 2.0 - 10.0 % Eosinophils % 2.5 0.0 - 6.0 % Basophils % 1.2 0.0 - 2.0 % Neutrophils Absolute 11.75 (H) 1.60 - 5.50 x10*3/uL Immature Granulocytes Absolute, Automated 0.09 0.00 - 0.50 x10*3/uL Lymphocytes Absolute 1.77 0.80 - 3.00 x10*3/uL Monocytes Absolute 1.34 (H) 0.05 - 0.80 x10*3/uL Eosinophils Absolute 0.39 0.00 - 0.40 x10*3/uL Basophils Absolute 0.18 (H) 0.00 - 0.10 x10*3/uL Coagulation Screen Result Value Ref Range Protime 11.4 9.8 - 12.4 seconds INR 1.0 0.9 - 1.1 aPTT 25 (L) 26 - 36 seconds Imaging Imaging No results found. Cardiology, Vascular, and Other Imaging No other imaging results found for the past 2 days Assessment & Plan Hematoma Apoorva Gonzalez is a 74 y.o. female presenting with pmhx of seizures(on keppra), ESRD on dialysis Tths LUE fistula, HTN, [facility] for R thigh hematoma, s/p 2 unit prbc this am for hg of 6.2, labs showing hg drop to 7.0 from 8.1 this am however vitally stable w/o signs of compartment syndrome, not in any pain. IR aware and plan to intervene in the AM. Will cw vanc zosyn for suspected cellulitis. #Right anterior thigh cellulitis and hematoma :: was on vanc zosyn at OSH :: reffered here for IR intervention :: IR aware and tentative plan for intervention in am - cw vanc/zosyn , first day was 08/27 - npo - 0.2 mg iv dilaudid prn severe pain, 5mg oxy prn moderate pain - q6h cbc #ESRD on dialysis :: LUE fistula :: TThS [ ] consult renal in am - cw lokelmn 10 on non dialysis days #acute on chronic anemia :: labs suggesting anemia of chronic disease, re-obtain labs here #hx of seizures cw keppra F: as needed E: K>4 Mg>2 N: npo A: PIV DVT Ppx: none GI Ppx: none Code status: full code NOK: Extended Emergency Contact Information Primary Emergency Contact: Edward mandel Mobile Relation: Significant Other Preferred language: Cambodian Technical Coordinator needed? No Cory Montelongo MD [1] No past medical history on file. [2] No past surgical history on file. [3] No family history on file. [4] cholecalciferol, 125 mcg, oral, Daily levETIRAcetam, 500 mg, oral, Daily oxyCODONE, 5 mg, oral, Once piperacillin-tazobactam, 3.375 g, intravenous, q6h sodium zirconium cyclosilicate, 10 g, oral, Every other day thiamine, 100 mg, oral, Daily [5] [6] PRN medications: HYDROmorphone, meclizine, vancomycin Cosigned by Arsenio Lombardo MD at 08/31/2024 7:00 AM EDT Associated attestation - Gaston Lombardo, Arsenio Emanuel MD - 08/31/2024 7:00 AM EDT I saw and evaluated the patient. I personally obtained the saavedra and critical portions of the history and physical exam or was physically present for saavedra and critical portions performed by the resident. I reviewed the resident's documentation and discussed the patient with the resident. I agree with the resident s medical decision making as documented in the note. documented in this encounter [facility] Work Phone: 08-30-2024 business segment manager Note Transfer Acceptance Note - [facility] Receiving Facility: [facility] Accepting Physician: Carine Mejia DO Date/Time: 7:54 AM Patient: Apoorva Gonzalez Sending Facility: [facility] Reason for Transfer: Evaluation and management of acutely bleeding R anterior thigh hematoma requiring IR embolization (not available at sending facility). Dr. Clarke Mckeon from IR at [facility] was contacted and agreed with transfer specifically to [facility] for embolization. Pertinent History: Presentation: Presented from SNF to [facility] ED with increased right lower extremity pain and swelling, concern for hematoma, ortho and vascular consulted. CTA of lower extremity done showing contrast pooling in hematoma with active bleeding. Vascular recommended urgent transfer for IR embolization. Past Medical History: ESRD on HD (T, Th, Sat), HTN, HLD, chronic anemia. Recent hospitalization at [facility] on 08/14 with sudden cardiac arrest, though to be sepsis due to R thigh and anterior hip abscess, underwent CT guided aspiration then I&D in OR, treated with IV Zosyn x7 days then discharged 08/24 to SNF with wound vac. Recent Findings: Labs: Hgb 6.5 yesterday, transfused 2 units, Hgb today 8.1. Imaging: CTA RLE with pooling in anterior thigh concerning for actively bleeding hematoma Clinical: Swelling and pain, without acute concerns for compartment syndrome but high risk for development if acute bleeding not addressed. Currently also on Vanc/Zosyn since 08/27 for any underlying infection in the R anterior thigh Last HD yesterday (08/29) Vital Signs (at time of conference): BP 144/64, HR 88, RR 16, T 36.5C, SpO2 96% on RA Disposition: Accepted to General Medicine at [facility] for: Management of acute R anterior thigh hematoma with acute blood loss anemia (on chronic anemia) with planned IR embolization at [facility]. Coordination of multidisciplinary evaluation (e.g., IR, vascular surgery, nephrology) Note: Transfer center and sending facility advised to re-contact accepting physician if any clinical deterioration occurs prior to arrival. Hospitalist [facility] Work Phone: 07-17-2024 Emergency department Note Discharged. Instructions given. Concerns addressed. Patient aware of dialysis schedule. Visitor at bedside and is driving patient home. Patient is alert oriented and cooperative. Gait is steady. No sign or symptom of distress. Transported [facility] via wheel chair. [facility] 07-17-2024 Emergency department Note Discharged. Instructions given. Concerns addressed. Patient aware of dialysis schedule. Visitor at bedside and is driving patient home. Patient is alert oriented and cooperative. Gait is steady. No sign or symptom of distress. Transported [facility] via wheel chair. This RN is taking over care of this patient at this time. Per Previous shift RN;s patient is at dialysis and will return to ED when dialysis is complete. Patient taken to dialysis. Pt went to an open bed that was not assigned to any nurse or medic and transferred pt over. Said they were waiting too long. Bed was moved to the medic desk by this medic. Visually monitoring until a bed opens. EMERGENCY DEPARTMENT ENCOUNTER Patient Name: Apoorva Gonzalez Birthdate 1950 Date of evaluation: 07/17/2024 ED Physician: Victor Manuel Kowalski DO CHIEF COMPLAINT Chief Complaint Patient presents with Altered Mental Status Pt from office after angiogram of dialysis cath where she went unresponsive during procedure. Pt received 25mcg fentynal and 0.5 versed and 2 narcan prior to arrival. Pt responding to verbal stimuli and denies complains HISTORY OF PRESENT ILLNESS (Location/Symptom, Timing/Onset, Context/Setting, Quality, Duration, Modifying Factors, Severity) Note limiting factors. I wore appropriate PPE for the entirety of this encounter. HPI Apoorva Gonzalez is a 74 y.o. female with a history of requiring dialysis, presents to the Emergency Department following a syncopal episode during a recent surgical procedure. The patient reports that their blood pressure got screwed up during the surgery, leading to the loss of consciousness. The patient denies any current symptoms, including chest pain, shortness of breath, nausea, vomiting, or abdominal pain. They report being able to eat and drink normally. The patient receives dialysis on Tuesdays, , and Saturdays through a port in their left arm. Today is Wednesday, and the patient was scheduled for surgery, not dialysis. The patient does not report any other recent healthcare interactions or lifestyle changes that may be contributing to their current condition. Medical History - End-stage renal disease requiring dialysis (Wednesday, , Wednesday) Social History - Dialysis: Receives dialysis on Wednesday, , Wednesday via port in left arm Nursing Notes were reviewed. Limitations to history: None REVIEW OF SYSTEMS Review of Systems Pertinent positives and negatives as per HPI. PAST MEDICAL HISTORY Past Medical History: Diagnosis Date Chronic kidney disease (CKD) Hemodialysis patient (CMS/HCC) ([facility]) Wednesday, , Wednesday History of blood transfusion 02/27/2022 Hypertension Seizure ([facility]) Developed seizure-like activity on 02/24 during hospital admission SURGICAL HISTORY Past Surgical History: Procedure Laterality Date AV FISTULA PLACEMENT Left 08/07/2022 COLONOSCOPY N/A 01/25/2024 Performed by Chrissy Gilman MD at [facility] ENDOSCOPY IR CVC TUNNELED DIALYSIS CATHETER PLACEMENT 02/27/2022 IR CVC TUNNELED CATHETER PLACEMENT 02/27/2022 Candis Andrade MD [facility] SPECIAL PROCEDURES IR EMBOLIZATION 01/24/2024 IR EMBOLIZATION 01/24/2024 Jovan Glynn MD [facility] SPECIAL PROCEDURES CURRENT MEDICATIONS Current Discharge Medication List CONTINUE these medications which have NOT CHANGED Details amLODIPine (Norvasc) 5 MG tablet Take 1 tablet (5 mg) by mouth daily. Qty: 30 tablet, Refills: 11 ASTRAGALUS PO Take 1 mL by mouth 3 times daily. atorvastatin (Lipitor) 40 MG tablet Take 1 tablet (40 mg) by mouth Nightly. Qty: 30 tablet, Refills: 11 calcium acetate (Phoslo) 667 MG tablet Take 1 tablet by mouth in the morning and 1 tablet at noon and 1 tablet in the evening. Take with meals. cholecalciferol (Vitamin D-3) 125 MCG (5000 UT) capsule Take 5,000 Units by mouth daily. levETIRAcetam (Keppra) 500 MG tablet Take 1 tablet (500 mg) by mouth daily. Qty: 30 tablet, Refills: 1 meclizine (Antivert) 25 MG tablet Take 1 tablet (25 mg) by mouth 3 times daily as needed for dizziness for up to 10 doses. Qty: 10 tablet, Refills: 0 !! NON FORMULARY Take 1 mL by mouth 3 times daily. Kidney tonic !! NON FORMULARY Take 1 capsule by mouth daily. [place] omega-3 (Fish Oil) 1000 MG capsule Take 1,000 mg by mouth daily. Thiamine HCl (vitamin B-1) 250 MG tablet Take 250 mg by mouth daily. !! - Potential duplicate medications found. Please discuss with provider. ALLERGIES Patient has no known allergies. FAMILY HISTORY Family History Problem Relation Name Age of Onset Dementia Mother Stroke Father Prostate cancer Brother 69 Breast cancer Cousin 32 Stomach cancer Mother's Sister 70 SOCIAL HISTORY Social History Socioeconomic History Marital status: Tobacco Use Smoking status: Never Smokeless tobacco: Never Vaping Use Vaping status: Never Used Substance and Sexual Activity Alcohol use: Yes Alcohol/week: 2.0 standard drinks of alcohol Types: 2 Glasses of wine per week Comment: weekly Drug use: Never Social Drivers of Health Food Insecurity: No Food Insecurity (03/02/2024) Hunger Vital Sign Worried About Running Out of Food in the Last Year: Never true Ran Out of Food in the Last Year: Never true Transportation Needs: No Transportation Needs (03/02/2024) PRAPARE - Transportation Lack of Transportation (Medical): No Lack of Transportation (Non-Medical): No Intimate Partner Violence: Not At Risk (03/02/2024) Humiliation, Afraid, Rape, and Kick questionnaire Fear of Current or Ex-Partner: No Emotionally Abused: No Physically Abused: No Sexually Abused: No Housing Stability: Low Risk (03/02/2024) Housing Stability Vital Sign Unable to Pay for Housing in the Last Year: No Number of Times Moved in the Last Year: 0 Homeless in the Last Year: No SCREENINGS Lety Coma Scale Best Eye Response: To verbal stimuli Best Verbal Response: Oriented Best Motor Response: Follows commands Lety Coma Scale Score: 14 PHYSICAL EXAM ED Triage Vitals [07/17/24 1409] Temp Heart Rate Resp BP -- 83 15 (!) 158/89 SpO2 Temp src Heart Rate Source Patient Position 100 % -- -- -- BP Location FiO2 (%) -- -- Physical Exam Vitals reviewed. Constitutional: General: She is not in acute distress. Appearance: She is ill-appearing. HENT: Head: Normocephalic and atraumatic. Right Ear: External ear normal. Left Ear: External ear normal. Nose: Nose normal. Mouth/Throat: Mouth: Mucous membranes are moist. Pharynx: Oropharynx is clear. Eyes: Extraocular Movements: Extraocular movements intact. Pupils: Pupils are equal, round, and reactive to light. Cardiovascular: Rate and Rhythm: Normal rate and regular rhythm. Pulses: Radial pulses are 2+ on the right side and 2+ on the left side. Heart sounds: Normal heart sounds. Pulmonary: Effort: Pulmonary effort is normal. Breath sounds: Normal breath sounds. No wheezing, rhonchi or rales. Abdominal: General: There is no distension. Palpations: Abdomen is soft. Tenderness: There is no abdominal tenderness. Musculoskeletal: General: No swelling. Cervical back: Normal range of motion. Right lower leg: No edema. Left lower leg: No edema. Skin: General: Skin is warm and dry. Capillary Refill: Capillary refill takes less than 2 seconds. Findings: No rash. Comments: AV fistula in LUE Neurological: Mental Status: She is alert and oriented to person, place, and time. Sensory: No sensory deficit. Motor: No weakness. DIAGNOSTIC RESULTS Procedures/EKG: EKG was reviewed by myself. Physician EKG interpretation can be found in [facility] RADIOLOGY (Per Emergency Physician): Interpretation per the Radiologist below, if available at the time of this note: XR chest 1 view Final Result No acute cardiopulmonary disease. Report Dictated on Electronically Signed By: Veronica Monsivais MD Electronically Signed Date/Time: 07/17/2024 3:00 PM EDT ED BEDSIDE ULTRASOUND: Performed by ED Physician - none LABS: Labs Reviewed CBC WITH AUTO DIFFERENTIAL - Abnormal Result Value Auto WBC 7.4 RBC 3.62 (*) Hemoglobin 11.5 (*) Hematocrit 34.9 (*) MCV 96.4 MCH 31.8 MCHC 33.0 RDW 16.3 (*) Platelets 325 MPV 11.3 nRBC 0.0 Neutrophils Relative 83.7 (*) Lymphocytes Relative 12.2 (*) Monocytes Relative 3.2 (*) Eosinophils Relative 0.1 Basophils Relative 0.1 Immature Grans % 0.7 Neutrophils Absolute 6.2 Lymphocytes Absolute 0.9 (*) Monocytes Absolute 0.2 Eosinophils Absolute 0.0 Basophils Absolute 0.0 Immature Grans Absolute 0.1 (*) BASIC METABOLIC PANEL - Abnormal SODIUM 133 (*) POTASSIUM 5.6 (*) CHLORIDE 96 (*) CARBON DIOXIDE 16 (*) UREA NITROGEN 84 (*) CREATININE 9.04 (*) GLUCOSE 92 CALCIUM 8.5 (*) ANION GAP 21 (*) eGFR 4.2 (*) HIGH SENSITIVITY TROPONIN, SERIAL, SECOND TEST - Abnormal 2h Troponin HS (Serial 2nd Troponin) 33 (*) MAGNESIUM - Normal MAGNESIUM 2.3 Narrative: Higher values can be expected in females during menses. HIGH SENSITIVITY TROPONIN, SERIAL, SECOND TEST All other labs were within normal range or not returned as of this dictation. EMERGENCY DEPARTMENT COURSE and DIFFERENTIAL DIAGNOSIS/MDM: Vitals: Vitals: 07/17/24 1930 07/17/24194207/17/24195607/17/242031 BP: 124/61 (!) 150/77 (!) 160/80 127/73 Pulse: 103 85 84 92 Resp: 16 Temp: 36.3 C (97.3 F) TempSrc: SpO2: 98% Weight: Labs and Images interpreted in ED course. All labs and imaging have been personally reviewed and interpreted by me. Medical Decision Making Problems Addressed: Adverse effect of drug, initial encounter: complicated acute illness or injury Amount and/or Complexity of Data Reviewed Labs: ordered. Radiology: ordered. ECG/medicine tests: ordered. Summary of External Notes reviewed: Summary of pertinent elements includes: Care everywhere reviewed PDMP reviewed 02/21/22 TRANSTHORACIC ECHOCARDIOGRAM (TTE) COMPLETE (CONTRAST/BUBBLE/3D PRN) 02/27/2022 2:04 PM (Final) Interpretation Summary Left Ventricle: Left ventricle size is normal. Normal wall thickness. Normal left ventricular systolic function. The EF by visual approximation is 60%. Normal wall motion. Right Ventricle: Right ventricle size is normal. Normal systolic function. TAPSE is normal. No significant valvular abnormalities. Signed by: Francisco Javier Qureshi MD on 02/27/2022 2:04 PM Factors Affecting Care: Past Medical History: Diagnosis Date Chronic kidney disease (CKD) Hemodialysis patient (CMS/HCC) (HCC) Wednesday, , Wednesday History of blood transfusion 02/27/2022 Hypertension Seizure ([facility]) Developed seizure-like activity on 02/24 during hospital admission Past Surgical History: Procedure Laterality Date AV FISTULA PLACEMENT Left 08/07/2022 COLONOSCOPY N/A 01/25/2024 Performed by Chrissy Gilman MD at [facility] ENDOSCOPY IR CVC TUNNELED DIALYSIS CATHETER PLACEMENT 02/27/2022 IR CVC TUNNELED CATHETER PLACEMENT 02/27/2022 Candis Andrade MD [facility] SPECIAL PROCEDURES IR EMBOLIZATION 01/24/2024 IR EMBOLIZATION 01/24/2024 Jovan Glynn MD [facility] SPECIAL PROCEDURES [facility] Marie Navarro [place] 74 y.o. female presents with the following Chief Compliant: Chief Complaint Patient presents with Altered Mental Status Pt from office after angiogram of dialysis cath where she went unresponsive during procedure. Pt received 25mcg fentynal and 0.5 versed and 2 narcan prior to arrival. Pt responding to verbal stimuli and denies complains The patient was examined. Shared Decision Making I will have a long discussion with the patient and/or visitors regarding risks/benefits of further testing or admission. They will be made aware of the risks/benefits in this decision and will voiced understanding as able. 74 year old female with end-stage renal disease on hemodialysis presenting after a syncopal episode during a dialysis related procedure. The patient lost consciousness during the procedure. Currently, the patient denies chest pain, shortness of breath, nausea, vomiting, or abdominal pain. Given the patient's history of dialysis and recent surgical procedure, the differential diagnosis includes post-operative hypotension, electrolyte abnormality, ACS, dialysis-related complications, and cardiac events. An EKG, CBC, troponin, BMP, magnesium level, and chest x-ray have been ordered to evaluate for potential cardiac causes, assess the patient's current renal function and electrolyte balance, and rule out pulmonary complications. The absence of current symptoms suggests hemodynamic stability, but close monitoring is warranted given the recent syncopal episode in the context of a surgical procedure. Plan: - Obtain EKG - Order laboratory tests: - Complete blood count (CBC) - Troponin - Basic metabolic panel (BMP) - Magnesium level - Obtain chest x-ray Diagnoses as of 07/17/242039 Adverse effect of drug, initial encounter Patient provided: Medications - No data to display The floor renovator revealed sinus rhythm as interpreted by me. The floor renovator was ordered secondary to the patient's history of syncope and to monitor the patient for dysrhythmia. Upon reevaluation the patient's symptoms are Stable. Lab work was notable for elevated potassium of 5.6 with EKG changes concerning for hyperkalemia. Nephrology was consulted to facilitate dialysis at this visit. Troponin was elevated at 33. Neurology was agreeable to perform dialysis at today's visit. Patient completed dialysis session and remains completely asymptomatic. She states that she feels great now. I discussed with her my thoughts that this may be related to the medication she received for the procedure earlier today. Patient will attend her previously scheduled dialysis session tomorrow and this coming Wednesday The risks and benefits of admission versus discharge were discussed with the patient using a shared decision-making model. The patient was given the opportunity to ask questions, and all questions were answered. Strict return precautions were given including returning to the ED for any new or worsening symptoms, or any new concerns. The patient was instructed to return to the ED if his/her symptoms changed or worsened. The patient was instructed to schedule and appointment with Roxie Spain in 1 week or at the earliest possible appointment for reassessment and further management. The patient agreed with the plan and expressed understanding. The patient will be discharged home in stable condition. Social determinants of health: None Specific History obtained from others: None Consults: IP CONSULT TO NEPHROLOGY PROCEDURES: Unless otherwise noted below, none Procedures Patients symptoms are consistent with sepsis, severe sepsis, or septic shock (If yes use .sepsiscoremeasure): FINAL IMPRESSION 1. Adverse effect of drug, initial encounter DISPOSITION Discharge 07/17/2024 08:39:52 PM PATIENT REFERRED TO: Roxie Spain [id number] [facility] [id number] Schedule an appointment as soon as possible for a visit in 1 week For follow up DISCHARGE MEDICATIONS: Current Discharge Medication List (Comment: Please note this report has been produced using speech recognition software and may contain errors related to that system including errors in grammar, punctuation, and spelling, as well as words and phrases that may be inappropriate. If there are any questions or concerns please feel free to contact the dictating provider for clarification.) Victor Manuel Kowalski DO (electronically signed) Emergency Medicine Physician Victor Manuel Kowalski DO Resident 07/17/242040 Cosigned by Rivas Sanchez DO at 07/17/2024 10:26 PM EDT Emergency Department Encounter [facility] EMERGENCY DEPT Patient: Apoorva Gonzalez : 1950 Date of Evaluation: 07/17/2024 ED Supervising Physician: Rivas Sanchez DO I personally evaluated Apoorva Gonzalez and made/approved the management plan and take responsibility for the patient management. This will serve as my Supervisory note and shared attestation. I did perform a substantive portion of the visit including all aspects of the Medical Decision Making. I wore appropriate PPE for the entirety of this encounter. In brief, Apoorva oGnzalez is a 74 y.o. that presents to the emergency department with syncopal episode during a procedure earlier today. Patient was undergoing an angiogram for her new fistula of her left arm. She was given fentanyl and Versed for the procedure and her blood pressure dropped to 80s over 40s. She did have a syncopal event where she lost consciousness. Currently asymptomatic. No chest pain shortness of breath lightheadedness dizziness. No abdominal pain nausea vomiting. Focused exam: Constitutional: Well-developed and well-nourished. No distress. HENT: Mucous membranes dry Cardiovascular: Regular rate and rhythm. No abnormal heart sounds heard. Pulmonary/Chest: Effort normal with no conversational dyspnea. Clear to auscultation bilaterally. Abdominal: Soft. No tenderness. No distension or guarding. Musculoskeletal: No edema Neuro: No focal deficit Skin: Skin is warm and dry. Left arm fistula with overlying bandage, palpable thrill Psychiatric: Normal mood and affect. Brief ED course/MDM: 74-year-old female with ESRD on dialysis presenting after syncopal episode during a procedure earlier today. Differential diagnosis includes medication side effect versus hypovolemia versus electrolyte abnormalities. BMP consistent with ESRD on dialysis. Does have hyperkalemia at 5.6 with peaked T waves noted on EKG so urgent dialysis was arranged. Also had elevated troponin at 33. During the syncopal episode earlier she had been given Versed and fentanyl which dropped her blood pressure and caused her to pass out. Her blood pressures remained stable while here in the emergency department. Blood pressure is normal after dialysis. Patient is feeling well able to ambulate prior to discharge home. Discharged home in stable condition Diagnostics interpreted by me: Xray(s) Chest x-ray without acute process I personally discussed the patient's management with other clinicians: none All diagnostic, treatment, and disposition decisions were made by myself in conjunction with the Resident. I also supervised saavedra portions of any procedures performed by the Resident. For all further details of the patient's emergency department visit, please see their documentation. (Comment: Please note this report has been produced using speech recognition software and may contain errors related to that system including errors in grammar, punctuation, and spelling, as well as words and phrases that may be inappropriate. If there are any questions or concerns please feel free to contact the dictating provider for clarification.) Rivas Sanchez DO [employer] Rivas Sanchez DO 07/17/242042 documented in this encounter [facility] 07-17-2024 Hospital Discharge instructions Victor Manuel Kowalski DO - 07/17/2024 8:39 PM EDT Please attend your previously scheduled session for dialysis tomorrow in addition to and this coming Wednesday. Please follow-up with your primary physician or if you do not have a PCP, with the [facility] [place], in 1 week. Please return to the emergency department for any new or worsening symptoms as we discussed. documented in this encounter [facility] 07-17-2024 Emergency department Note This RN is taking over care of this patient at this time. Per Previous shift RN;s patient is at dialysis and will return to ED when dialysis is complete. [facility] 07-17-2024 Nurse Note Patient Name: Apoorva Goznalez Patient : 1950 Acct: [id number] Date of Admission: 07/17/2024 Room/Bed: 43/ Code Status: Prior Allergies: No Known Allergies Diagnosis: Patient Active Problem List Diagnosis Hypertensive emergency Gastrointestinal hemorrhage, unspecified gastrointestinal hemorrhage type Anemia Pulmonary edema, acute (HCC) Shortness of breath Treatment: Hemodilaysis 2:1 Priority: Routine Location: Acute Room Diabetic: No NPO: No Isolation Precautions: None Consent for Treatment Verified: Yes Blood Consent Verified: Not Applicable ICEBOAT: Identify, Consent, Equipment, HepB Status, Orders Complete, Access Verified, Timeliness (O2 and wall suction bedside) Second Clinician Verifying: Matilde Julien Time out performed prior to access at 1722. Report Received from Primary RN at 1630. Primary RN (First Initial, Last Name, Title): Will Humphries RN Incapacitated Nurse Education Completed: Quinn Julien RN HBsAg ONLY: Date Drawn: January 22, 2024 Results: Negative HBsAb: Date Drawn: January 22, 2024 Results: Immune >10 Order Dialyzer: Nipro Na+ Modeling: Not Applicable Dialysate Temperature (C): 36 Blood Flow Rate (BFR): 350 Dialysate Flow Rate (DFR): 600 Access to be Utilized Access: AVG Location: Upper Extremity Side: Left Needle gauge: 16 + Bruit/Thrill: Yes First Use X-ray Verified: Not Applicable OK to use line order: Not Applicable Site Assessment: Signs and Symptoms of Infection/Inflammation: None If yes: Not Applicable Dressing: N/A Site Prep: Medical Aseptic Technique Dressing Changed this Treatment: N/A If yes, by whom: N/A Date of Last Dressing Change: N/A N/A [address]?: N/A Red Alcohol Caps in place?: N/A Gauze Dressing?: N/A Non-Dialysis Use?: No Comment: Flows: Good If access problem, who was notified: Pre and Post-Assessment Patient Vitals for the past 8 hrs: Level of Consciousness Oriented X Heart Rhythm O2 Device Bilateral Breath Sounds Skin Color Skin Condition/Temp Abdomen Inspection Bowel Sounds (All Quadrants) 07/17/24 1720 Alert (0) 3 Regular None (Room air) Clear [place] Warm;Dry;No swelling Soft Active 07/17/242000 Alert (0) 3 Regular None (Room air) Clear [place] -- -- -- Labs Lab Results Component Value Date/Time WBC 7.4 07/17/2024 1419 HGB 11.5 (L) 07/17/2024 1419 HGB 12.1 03/02/2024 0510 HCT 34.9 (L) 07/17/2024 1419 PLT 325 07/17/2024 1419 NA 133 (L) 07/17/2024 1523 K 5.6 (H) 07/17/2024 1523 CL 96 (L) 07/17/2024 1523 CO2 16 (L) 07/17/2024 1523 BUN 84 (H) 07/17/2024 1523 CREATININE 9.04 (H) 07/17/2024 1523 CALCIUM 8.5 (L) 07/17/2024 1523 PHOS 5.7 (H) 01/25/2024 0003 IV Drips and Rate/Dose Safety - Before each treatment: Dialysis Machine No.: [id number] Machine Number: [id number] Dialyzer Lot No.: [id number] Tubing Lot Number: [id number] All [employer] Secure: Yes Venous Parameters Set: Yes Arterial Parameters Set: Yes NS Bag: Yes Saline Line Double Clamped: Yes Dialyzer: Nipro Prime Volume (mL): 200 mL RO Machine Number: [id number] RO Machine Log Sheet Completed: Yes Machine Alarm Self Test: Completed, Passed (07/17/24 1627) Air Foam Detector: Tested, Proper Function, pH Reading Extracorporeal Circuit Tested for Integrity: Yes Machine Conductivity: 13.6 Manual Conductivity: 13.7 Manual Ph: 7 Bleach Test (Neg): Yes Bath Temperature: 36 C (96.8 F) Conductivity Meter Serial #: [id number] Machine Functioning Alarm Free? Yes Dialysis Bath: K+ (Potassium): 2 Ca+ (Calcium): 2.5 Na+ (Sodium): 137 HCO3 (Bicarb): 35 Chlorine Testing - Before each treatment and every 4 hours: Time On: 1726 Time Off: 1942 Treatment Goal: 3L Weight Weight: 52.2 kg (115 lb) (07/17/24 1407) 1st check: less than 0.1 ppm at: 1645 2nd check: less than 0.1 ppm at: 1945 3rd check: Not Applicable (if greater than 0.1 ppm, then check every 30 minutes from secondary) Access Flows and Pressures Patient Vitals for the past 8 hrs: Blood Flow Rate (mL/min) Ultrafiltration Rate (ml/hr) Arterial Pressure (mmHg) Venous Pressure (mmHg) TMP DFR Access Visible Intra-Hemodialysis Comments 07/17/24 1727 200 mL/min 830 ml/hr -100 mmHg 40 mmHg 60 600 Yes Tx initiated call light within reach 07/17/24 1732 350 mL/min 830 ml/hr -120 mmHg 140 mmHg 100 600 Yes Bfr increased 07/17/24 1745 350 mL/min 830 ml/hr -230 mmHg 210 mmHg 90 600 Yes pt resting rmv 270 07/17/24 1800 300 mL/min 840 ml/hr -70 mmHg 260 mmHg 110 600 Yes pt alert stable rmv 504 07/17/24 1815 350 mL/min 840 ml/hr -50 mmHg 110 mmHg 100 600 Yes pt resting rmv 700 07/17/24 1830 350 mL/min 910 ml/hr -60 mmHg 110 mmHg 100 600 Yes pt stable rmv 726 07/17/24 1845 350 mL/min 910 ml/hr -80 mmHg 150 mmHg 110 600 Yes pt sleeping rmv 882 07/17/24 1900 350 mL/min 910 ml/hr -100 mmHg 160 mmHg 110 600 Yes pt resting rmv 1123 07/17/24 1915 350 mL/min 910 ml/hr -100 mmHg 200 mmHg 110 600 Yes pt alert resting rmv 1396 07/17/24 1930 350 mL/min 910 ml/hr -60 mmHg 250 mmHg 120 600 Yes pt stable rmv 1557 07/17/241942 -- -- -- -- -- -- -- Tx termianted due to clotting rmv 1700 Vital Signs Patient Vitals for the past 24 hrs: BP Temp Temp src Pulse Resp SpO2 Weight 07/17/241956 (!) 160/80 -- -- 84 -- -- -- 04/14/25 1943 (!) 150/77 36.3 C (97.3 F) -- 85 -- -- -- 07/17/24 1930 124/61 -- -- 103 -- -- -- 07/17/24 1915 137/75 -- -- 85 -- -- -- 07/17/24 1900 (!) 152/79 -- -- 84 -- -- -- 07/17/24 1845 (!) 160/80 -- -- 80 -- -- -- 07/17/24 1830 (!) 158/78 -- -- 83 -- -- -- 07/17/24 1815 (!) 164/76 -- -- 84 -- -- -- 07/17/24 1800 (!) 146/82 -- -- 84 -- -- -- 07/17/24 1745 (!) 144/81 -- -- 84 -- -- -- 07/17/24 1732 (!) 151/76 -- -- 84 -- -- -- 07/17/24 1727 (!) 166/79 -- -- 85 -- -- -- 07/17/24 1721 (!) 144/77 36.8 C (98.2 F) -- 85 16 98 % -- 07/17/24 1647 122/76 -- -- 84 15 98 % -- 07/17/24 1409 (!) 158/89 36.8 C (98.2 F) Oral 83 15 100 % -- 07/17/24 1407 -- -- -- -- -- -- 52.2 kg (115 lb) Post-Dialysis Arterial Catheter Locking Solution: Not Applicable Venous Catheter Locking Solution: Not Applicable Post-Treatment Procedures: Blood returned, Access bleeding time < 10 minutes Machine Disinfection Process: Exterior Machine Disinfection, Acid/Vinegar Clean, Heat Disinfect Rinseback Volume (mL): 300 mL Total Liters Processed (L/min): 38.3 L/min Dialyzer Clearance: Lightly streaked Hemodialysis Intake (ml): 500 ml Hemodialysis Output (ml): 1700 ml NET Removed (ml): 1200 ml Tolerated Treatment: Good Charge: Provider Notification Handoff complete and report given to Primary RN at 2000. Primary RN (First Initial, Last Name, Title): Will Humphries RN Education Person Educated: Patient Knowledge Base: Substantial Barriers to Learning?: None Preferred method of Learning: Oral Topic(s): Call Light Education, Access Care, Signs and Symptoms of Infection, and Fluid Management Teaching Tools: Explanation Response to Education: Verbalized Understanding [facility] 07-17-2024 Nurse Note Patient Name: Apoorva Gonzalez Patient : 1950 Acct: [id number] Date of Admission: 07/17/2024 Room/Bed: [facility] Code Status: Prior Allergies: No Known Allergies Diagnosis: Patient Active Problem List Diagnosis Hypertensive emergency Gastrointestinal hemorrhage, unspecified gastrointestinal hemorrhage type Anemia Pulmonary edema, acute (HCC) Shortness of breath Treatment: Hemodilaysis 2:1 Priority: Routine Location: Acute Room Diabetic: No NPO: No Isolation Precautions: None Consent for Treatment Verified: Yes Blood Consent Verified: Not Applicable ICEBOAT: Identify, Consent, Equipment, HepB Status, Orders Complete, Access Verified, Timeliness (O2 and wall suction bedside) Second Clinician Verifying: Matilde Julien Time out performed prior to access at 1722. Report Received from Primary RN at 1630. Primary RN (First Initial, Last Name, Title): Will Humphries RN Incapacitated Nurse Education Completed: Quinn Julien RN HBsAg ONLY: Date Drawn: January 22, 2024 Results: Negative HBsAb: Date Drawn: January 22, 2024 Results: Immune >10 Order Dialyzer: Nipro Na+ Modeling: Not Applicable Dialysate Temperature (C): 36 Blood Flow Rate (BFR): 350 Dialysate Flow Rate (DFR): 600 Access to be Utilized Access: AVG Location: Upper Extremity Side: Left Needle gauge: 16 + Bruit/Thrill: Yes First Use X-ray Verified: Not Applicable OK to use line order: Not Applicable Site Assessment: Signs and Symptoms of Infection/Inflammation: None If yes: Not Applicable Dressing: N/A Site Prep: Medical Aseptic Technique Dressing Changed this Treatment: N/A If yes, by whom: N/A Date of Last Dressing Change: N/A N/A [address]?: N/A Red Alcohol Caps in place?: N/A Gauze Dressing?: N/A Non-Dialysis Use?: No Comment: Flows: Good If access problem, who was notified: Pre and Post-Assessment Patient Vitals for the past 8 hrs: Level of Consciousness Oriented X Heart Rhythm O2 Device Bilateral Breath Sounds Skin Color Skin Condition/Temp Abdomen Inspection Bowel Sounds (All Quadrants) 07/17/24 172 Alert (0) 3 Regular None (Room air) Clear [place] Warm;Dry;No swelling Soft Active 07/17/242000 Alert (0) 3 Regular None (Room air) Clear [place] -- -- -- Labs Lab Results Component Value Date/Time WBC 7.4 07/17/2024 1419 HGB 11.5 (L) 07/17/2024 1419 HGB 12.1 03/02/2024 0510 HCT 34.9 (L) 07/17/2024 1419 PLT 325 07/17/2024 1419 NA 133 (L) 07/17/2024 1523 K 5.6 (H) 07/17/2024 1523 CL 96 (L) 07/17/2024 1523 CO2 16 (L) 07/17/2024 1523 BUN 84 (H) 07/17/2024 1523 CREATININE 9.04 (H) 07/17/2024 1523 CALCIUM 8.5 (L) 07/17/2024 1523 PHOS 5.7 (H) 01/25/2024 0003 IV Drips and Rate/Dose Safety - Before each treatment: Dialysis Machine No.: [id number] RO Machine Number: [id number] Dialyzer Lot No.: [id number] Tubing Lot Number: [id number] [employer] Secure: Yes Venous Parameters Set: Yes Arterial Parameters Set: Yes NS Bag: Yes Saline Line Double Clamped: Yes Dialyzer: Nipro Prime Volume (mL): 200 mL RO Machine Number: [id number] RO Machine Log Sheet Completed: Yes Machine Alarm Self Test: Completed, Passed (07/17/24 1627) Air Foam Detector: Tested, Proper Function, pH Reading Extracorporeal Circuit Tested for Integrity: Yes Machine Conductivity: 13.6 Manual Conductivity: 13.7 Manual Ph: 7 Bleach Test (Neg): Yes Bath Temperature: 36 C (96.8 F) Conductivity Meter Serial #: [id number] Machine Functioning Alarm Free? Yes Dialysis Bath: K+ (Potassium): 2 Ca+ (Calcium): 2.5 Na+ (Sodium): 137 HCO3 (Bicarb): 35 Chlorine Testing - Before each treatment and every 4 hours: Time On: 1726 Time Off: 1942 Treatment Goal: 3L Weight Weight: 52.2 kg (115 lb) (07/17/24 1407) 1st check: less than 0.1 ppm at: 1645 2nd check: less than 0.1 ppm at: 1945 3rd check: Not Applicable (if greater than 0.1 ppm, then check every 30 minutes from secondary) Access Flows and Pressures Patient Vitals for the past 8 hrs: Blood Flow Rate (mL/min) Ultrafiltration Rate (ml/hr) Arterial Pressure (mmHg) Venous Pressure (mmHg) TMP DFR Access Visible Intra-Hemodialysis Comments 07/17/24 1727 200 mL/min 830 ml/hr -100 mmHg 40 mmHg 60 600 Yes Tx initiated call light within reach 07/17/24 1732 350 mL/min 830 ml/hr -120 mmHg 140 mmHg 100 600 Yes Bfr increased 07/17/24 1745 350 mL/min 830 ml/hr -230 mmHg 210 mmHg 90 600 Yes pt resting rmv 270 07/17/24 1800 300 mL/min 840 ml/hr -70 mmHg 260 mmHg 110 600 Yes pt alert stable rmv 504 07/17/24 1815 350 mL/min 840 ml/hr -50 mmHg 110 mmHg 100 600 Yes pt resting rmv 700 07/17/24 1830 350 mL/min 910 ml/hr -60 mmHg 110 mmHg 100 600 Yes pt stable rmv 726 07/17/24 1845 350 mL/min 910 ml/hr -80 mmHg 150 mmHg 110 600 Yes pt sleeping rmv 882 07/17/24 1900 350 mL/min 910 ml/hr -100 mmHg 160 mmHg 110 600 Yes pt resting rmv 1123 07/17/24 1915 350 mL/min 910 ml/hr -100 mmHg 200 mmHg 110 600 Yes pt alert resting rmv 1396 07/17/24 1930 350 mL/min 910 ml/hr -60 mmHg 250 mmHg 120 600 Yes pt stable rmv 1557 07/17/241942 -- -- -- -- -- -- -- Tx termianted due to clotting rmv 1700 Vital Signs Patient Vitals for the past 24 hrs: BP Temp Temp src Pulse Resp SpO2 Weight 07/17/241956 (!) 160/80 -- -- 84 -- -- -- 07/17/24 194 (!) 150/77 36.3 C (97.3 F) -- 85 -- -- -- 07/17/24 1930 124/61 -- -- 103 -- -- -- 07/17/24 1915 137/75 -- -- 85 -- -- -- 07/17/24 1900 (!) 152/79 -- -- 84 -- -- -- 07/17/24 1845 (!) 160/80 -- -- 80 -- -- -- 07/17/24 1830 (!) 158/78 -- -- 83 -- -- -- 07/17/24 1815 (!) 164/76 -- -- 84 -- -- -- 07/17/24 1800 (!) 146/82 -- -- 84 -- -- -- 07/17/24 1745 (!) 144/81 -- -- 84 -- -- -- 07/17/24 1732 (!) 151/76 -- -- 84 -- -- -- 07/17/24 1727 (!) 166/79 -- -- 85 -- -- -- 07/17/24 1721 (!) 144/77 36.8 C (98.2 F) -- 85 16 98 % -- 07/17/24 1647 122/76 -- -- 84 15 98 % -- 07/17/24 1409 (!) 158/89 36.8 C (98.2 F) Oral 83 15 100 % -- 07/17/24 1407 -- -- -- -- -- -- 52.2 kg (115 lb) Post-Dialysis Arterial Catheter Locking Solution: Not Applicable Venous Catheter Locking Solution: Not Applicable Post-Treatment Procedures: Blood returned, Access bleeding time < 10 minutes Machine Disinfection Process: Exterior Machine Disinfection, Acid/Vinegar Clean, Heat Disinfect Rinseback Volume (mL): 300 mL Total Liters Processed (L/min): 38.3 L/min Dialyzer Clearance: Lightly streaked Hemodialysis Intake (ml): 500 ml Hemodialysis Output (ml): 1700 ml NET Removed (ml): 1200 ml Tolerated Treatment: Good Charge: Provider Notification Handoff complete and report given to Primary RN at 2000. Primary RN (First Initial, Last Name, Title): Will Humphries RN Education Person Educated: Patient Knowledge Base: Substantial Barriers to Learning?: None Preferred method of Learning: Oral Topic(s): Call Light Education, Access Care, Signs and Symptoms of Infection, and Fluid Management Teaching Tools: Explanation Response to Education: Verbalized Understanding documented in this encounter [facility] 07-17-2024 Emergency department Note Patient taken to dialysis. [facility] 07-17-2024 Emergency department Note Pt went to an open bed that was not assigned to any nurse or medic and transferred pt over. Said they were waiting too long. Bed was moved to the medic desk by this medic. Visually monitoring until a bed opens. [facility] 07-17-2024 Physician Emergency department Note EMERGENCY DEPARTMENT ENCOUNTER Patient Name: Apoorva Gonzalez Birthdate 1950 Date of evaluation: 07/17/2024 ED Physician: Victor Manuel Kowalski DO CHIEF COMPLAINT Chief Complaint Patient presents with Altered Mental Status Pt from office after angiogram of dialysis cath where she went unresponsive during procedure. Pt received 25mcg fentynal and 0.5 versed and 2 narcan prior to arrival. Pt responding to verbal stimuli and denies complains HISTORY OF PRESENT ILLNESS (Location/Symptom, Timing/Onset, Context/Setting, Quality, Duration, Modifying Factors, Severity) Note limiting factors. I wore appropriate PPE for the entirety of this encounter. HPI Apoorva Gonzalez is a 74 y.o. female with a history of requiring dialysis, presents to the Emergency Department following a syncopal episode during a recent surgical procedure. The patient reports that their blood pressure got screwed up during the surgery, leading to the loss of consciousness. The patient denies any current symptoms, including chest pain, shortness of breath, nausea, vomiting, or abdominal pain. They report being able to eat and drink normally. The patient receives dialysis on Tuesdays, , and Saturdays through a port in their left arm. Today is Wednesday, and the patient was scheduled for surgery, not dialysis. The patient does not report any other recent healthcare interactions or lifestyle changes that may be contributing to their current condition. Medical History - End-stage renal disease requiring dialysis (Wednesday, , Wednesday) Social History - Dialysis: Receives dialysis on Wednesday, , Wednesday via port in left arm Nursing Notes were reviewed. Limitations to history: None REVIEW OF SYSTEMS Review of Systems Pertinent positives and negatives as per HPI. PAST MEDICAL HISTORY Past Medical History: Diagnosis Date Chronic kidney disease (CKD) Hemodialysis patient (CMS/HCC) (HCC) Wednesday, , Wednesday History of blood transfusion 02/27/2022 Hypertension Seizure ([facility]) Developed seizure-like activity on 02/24 during hospital admission SURGICAL HISTORY Past Surgical History: Procedure Laterality Date AV FISTULA PLACEMENT Left 08/07/2022 COLONOSCOPY N/A 01/25/2024 Performed by Chrissy Gilman MD at [facility] ENDOSCOPY IR CVC TUNNELED DIALYSIS CATHETER PLACEMENT 02/27/2022 IR CVC TUNNELED CATHETER PLACEMENT 02/27/2022 Candis Andrade MD [facility] SPECIAL PROCEDURES IR EMBOLIZATION 01/24/2024 IR EMBOLIZATION 01/24/2024 Jovan Glynn MD [facility] SPECIAL PROCEDURES CURRENT MEDICATIONS Current Discharge Medication List CONTINUE these medications which have NOT CHANGED Details amLODIPine (Norvasc) 5 MG tablet Take 1 tablet (5 mg) by mouth daily. Qty: 30 tablet, Refills: 11 ASTRAGALUS PO Take 1 mL by mouth 3 times daily. atorvastatin (Lipitor) 40 MG tablet Take 1 tablet (40 mg) by mouth Nightly. Qty: 30 tablet, Refills: 11 calcium acetate (Phoslo) 667 MG tablet Take 1 tablet by mouth in the morning and 1 tablet at noon and 1 tablet in the evening. Take with meals. cholecalciferol (Vitamin D-3) 125 MCG (5000 UT) capsule Take 5,000 Units by mouth daily. levETIRAcetam (Keppra) 500 MG tablet Take 1 tablet (500 mg) by mouth daily. Qty: 30 tablet, Refills: 1 meclizine (Antivert) 25 MG tablet Take 1 tablet (25 mg) by mouth 3 times daily as needed for dizziness for up to 10 doses. Qty: 10 tablet, Refills: 0 !! NON FORMULARY Take 1 mL by mouth 3 times daily. Kidney tonic !! NON FORMULARY Take 1 capsule by mouth daily. [place] omega-3 (Fish Oil) 1000 MG capsule Take 1,000 mg by mouth daily. Thiamine HCl (vitamin B-1) 250 MG tablet Take 250 mg by mouth daily. !! - Potential duplicate medications found. Please discuss with provider. ALLERGIES Patient has no known allergies. FAMILY HISTORY Family History Problem Relation Name Age of Onset Dementia Mother Stroke Father Prostate cancer Brother 69 Breast cancer Cousin 32 Stomach cancer Mother's Sister 70 SOCIAL HISTORY Social History Socioeconomic History Marital status: Tobacco Use Smoking status: Never Smokeless tobacco: Never Vaping Use Vaping status: Never Used Substance and Sexual Activity Alcohol use: Yes Alcohol/week: 2.0 standard drinks of alcohol Types: 2 Glasses of wine per week Comment: weekly Drug use: Never Social Drivers of Health Food Insecurity: No Food Insecurity (03/02/2024) Hunger Vital Sign Worried About Running Out of Food in the Last Year: Never true Ran Out of Food in the Last Year: Never true Transportation Needs: No Transportation Needs (03/02/2024) PRAPARE - Transportation Lack of Transportation (Medical): No Lack of Transportation (Non-Medical): No Intimate Partner Violence: Not At Risk (03/02/2024) Humiliation, Afraid, Rape, and Kick questionnaire Fear of Current or Ex-Partner: No Emotionally Abused: No Physically Abused: No Sexually Abused: No Housing Stability: Low Risk (03/02/2024) Housing Stability Vital Sign Unable to Pay for Housing in the Last Year: No Number of Times Moved in the Last Year: 0 Homeless in the Last Year: No SCREENINGS Lety Coma Scale Best Eye Response: To verbal stimuli Best Verbal Response: Oriented Best Motor Response: Follows commands Lety Coma Scale Score: 14 PHYSICAL EXAM ED Triage Vitals [07/17/24 1409] Temp Heart Rate Resp BP -- 83 15 (!) 158/89 SpO2 Temp src Heart Rate Source Patient Position 100 % -- -- -- BP Location FiO2 (%) -- -- Physical Exam Vitals reviewed. Constitutional: General: She is not in acute distress. Appearance: She is ill-appearing. HENT: Head: Normocephalic and atraumatic. Right Ear: External ear normal. Left Ear: External ear normal. Nose: Nose normal. Mouth/Throat: Mouth: Mucous membranes are moist. Pharynx: Oropharynx is clear. Eyes: Extraocular Movements: Extraocular movements intact. Pupils: Pupils are equal, round, and reactive to light. Cardiovascular: Rate and Rhythm: Normal rate and regular rhythm. Pulses: Radial pulses are 2+ on the right side and 2+ on the left side. Heart sounds: Normal heart sounds. Pulmonary: Effort: Pulmonary effort is normal. Breath sounds: Normal breath sounds. No wheezing, rhonchi or rales. Abdominal: General: There is no distension. Palpations: Abdomen is soft. Tenderness: There is no abdominal tenderness. Musculoskeletal: General: No swelling. Cervical back: Normal range of motion. Right lower leg: No edema. Left lower leg: No edema. Skin: General: Skin is warm and dry. Capillary Refill: Capillary refill takes less than 2 seconds. Findings: No rash. Comments: AV fistula in LUE Neurological: Mental Status: She is alert and oriented to person, place, and time. Sensory: No sensory deficit. Motor: No weakness. DIAGNOSTIC RESULTS Procedures/EKG: EKG was reviewed by myself. Physician EKG interpretation can be found in [facility] RADIOLOGY (Per Emergency Physician): Interpretation per the Radiologist below, if available at the time of this note: XR chest 1 view Final Result No acute cardiopulmonary disease. Report Dictated on Electronically Signed By: Veronica Monsivais MD Electronically Signed Date/Time: 07/17/2024 3:00 PM EDT ED BEDSIDE ULTRASOUND: Performed by ED Physician - none LABS: Labs Reviewed CBC WITH AUTO DIFFERENTIAL - Abnormal Result Value Auto WBC 7.4 RBC 3.62 (*) Hemoglobin 11.5 (*) Hematocrit 34.9 (*) MCV 96.4 MCH 31.8 MCHC 33.0 RDW 16.3 (*) Platelets 325 MPV 11.3 nRBC 0.0 Neutrophils Relative 83.7 (*) Lymphocytes Relative 12.2 (*) Monocytes Relative 3.2 (*) Eosinophils Relative 0.1 Basophils Relative 0.1 Immature Grans % 0.7 Neutrophils Absolute 6.2 Lymphocytes Absolute 0.9 (*) Monocytes Absolute 0.2 Eosinophils Absolute 0.0 Basophils Absolute 0.0 Immature Grans Absolute 0.1 (*) BASIC METABOLIC PANEL - Abnormal SODIUM 133 (*) POTASSIUM 5.6 (*) CHLORIDE 96 (*) CARBON DIOXIDE 16 (*) UREA NITROGEN 84 (*) CREATININE 9.04 (*) GLUCOSE 92 CALCIUM 8.5 (*) ANION GAP 21 (*) eGFR 4.2 (*) HIGH SENSITIVITY TROPONIN, SERIAL, SECOND TEST - Abnormal 2h Troponin HS (Serial 2nd Troponin) 33 (*) MAGNESIUM - Normal MAGNESIUM 2.3 Narrative: Higher values can be expected in females during menses. HIGH SENSITIVITY TROPONIN, SERIAL, SECOND TEST All other labs were within normal range or not returned as of this dictation. EMERGENCY DEPARTMENT COURSE and DIFFERENTIAL DIAGNOSIS/MDM: Vitals: Vitals: 07/17/24 1930 07/17/24194207/17/24195607/17/242031 BP: 124/61 (!) 150/77 (!) 160/80 127/73 Pulse: 103 85 84 92 Resp: 16 Temp: 36.3 C (97.3 F) TempSrc: SpO2: 98% Weight: Labs and Images interpreted in ED course. All labs and imaging have been personally reviewed and interpreted by me. Medical Decision Making Problems Addressed: Adverse effect of drug, initial encounter: complicated acute illness or injury Amount and/or Complexity of Data Reviewed Labs: ordered. Radiology: ordered. ECG/medicine tests: ordered. Summary of External Notes reviewed: Summary of pertinent elements includes: Care everywhere reviewed PDMP reviewed 02/21/22 TRANSTHORACIC ECHOCARDIOGRAM (TTE) COMPLETE (CONTRAST/BUBBLE/3D PRN) 02/27/2022 2:04 PM (Final) Interpretation Summary Left Ventricle: Left ventricle size is normal. Normal wall thickness. Normal left ventricular systolic function. The EF by visual approximation is 60%. Normal wall motion. Right Ventricle: Right ventricle size is normal. Normal systolic function. TAPSE is normal. No significant valvular abnormalities. Signed by: Francisco Javier Qureshi MD on 02/27/2022 2:04 PM Factors Affecting Care: Past Medical History: Diagnosis Date Chronic kidney disease (CKD) Hemodialysis patient (CMS/HCC) (HCC) Wednesday, , Wednesday History of blood transfusion 02/27/2022 Hypertension Seizure ([facility]) Developed seizure-like activity on 02/24 during hospital admission Past Surgical History: Procedure Laterality Date AV FISTULA PLACEMENT Left 08/07/2022 COLONOSCOPY N/A 01/25/2024 Performed by Chrissy Gilman MD at [facility] ENDOSCOPY IR CVC TUNNELED DIALYSIS CATHETER PLACEMENT 02/27/2022 IR CVC TUNNELED CATHETER PLACEMENT 02/27/2022 Candis Andrade MD [facility] SPECIAL PROCEDURES IR EMBOLIZATION 01/24/2024 IR EMBOLIZATION 01/24/2024 Jovan Glynn MD [facility] SPECIAL PROCEDURES [facility] Narative Apoorva [place] 74 y.o. female presents with the following Chief Compliant: Chief Complaint Patient presents with Altered Mental Status Pt from office after angiogram of dialysis cath where she went unresponsive during procedure. Pt received 25mcg fentynal and 0.5 versed and 2 narcan prior to arrival. Pt responding to verbal stimuli and denies complains The patient was examined. Shared Decision Making I will have a long discussion with the patient and/or visitors regarding risks/benefits of further testing or admission. They will be made aware of the risks/benefits in this decision and will voiced understanding as able. 74 year old female with end-stage renal disease on hemodialysis presenting after a syncopal episode during a dialysis related procedure. The patient lost consciousness during the procedure. Currently, the patient denies chest pain, shortness of breath, nausea, vomiting, or abdominal pain. Given the patient's history of dialysis and recent surgical procedure, the differential diagnosis includes post-operative hypotension, electrolyte abnormality, ACS, dialysis-related complications, and cardiac events. An EKG, CBC, troponin, BMP, magnesium level, and chest x-ray have been ordered to evaluate for potential cardiac causes, assess the patient's current renal function and electrolyte balance, and rule out pulmonary complications. The absence of current symptoms suggests hemodynamic stability, but close monitoring is warranted given the recent syncopal episode in the context of a surgical procedure. Plan: - Obtain EKG - Order laboratory tests: - Complete blood count (CBC) - Troponin - Basic metabolic panel (BMP) - Magnesium level - Obtain chest x-ray Diagnoses as of 07/17/242039 Adverse effect of drug, initial encounter Patient provided: Medications - No data to display The floor renovator revealed sinus rhythm as interpreted by me. The floor renovator was ordered secondary to the patient's history of syncope and to monitor the patient for dysrhythmia. Upon reevaluation the patient's symptoms are Stable. Lab work was notable for elevated potassium of 5.6 with EKG changes concerning for hyperkalemia. Nephrology was consulted to facilitate dialysis at this visit. Troponin was elevated at 33. Neurology was agreeable to perform dialysis at today's visit. Patient completed dialysis session and remains completely asymptomatic. She states that she feels great now. I discussed with her my thoughts that this may be related to the medication she received for the procedure earlier today. Patient will attend her previously scheduled dialysis session tomorrow and this coming Wednesday The risks and benefits of admission versus discharge were discussed with the patient using a shared decision-making model. The patient was given the opportunity to ask questions, and all questions were answered. Strict return precautions were given including returning to the ED for any new or worsening symptoms, or any new concerns. The patient was instructed to return to the ED if his/her symptoms changed or worsened. The patient was instructed to schedule and appointment with Roxie Spain in 1 week or at the earliest possible appointment for reassessment and further management. The patient agreed with the plan and expressed understanding. The patient will be discharged home in stable condition. Social determinants of health: None Specific History obtained from others: None Consults: IP CONSULT TO NEPHROLOGY PROCEDURES: Unless otherwise noted below, none Procedures Patients symptoms are consistent with sepsis, severe sepsis, or septic shock (If yes use .sepsiscoremeasure): FINAL IMPRESSION 1. Adverse effect of drug, initial encounter DISPOSITION Discharge 07/17/2024 08:39:52 PM PATIENT REFERRED TO: Roxie Spain [id number] [facility] [id number] Schedule an appointment as soon as possible for a visit in 1 week For follow up DISCHARGE MEDICATIONS: Current Discharge Medication List (Comment: Please note this report has been produced using speech recognition software and may contain errors related to that system including errors in grammar, punctuation, and spelling, as well as words and phrases that may be inappropriate. If there are any questions or concerns please feel free to contact the dictating provider for clarification.) Victor Manuel Kowalski DO (electronically signed) Emergency Medicine Physician Victor Manuel Kowalski DO Resident 07/17/242040 Cosigned by Rivas Sanchez DO at 07/17/2024 10:26 PM EDT [facility] 07-17-2024 Physician Emergency department Note Emergency Department Encounter [facility] EMERGENCY DEPT Patient: Apoorva Gonzalez : 1950 Date of Evaluation: 07/17/2024 ED Supervising Physician: Rivas Sanchze DO I personally evaluated Apoorva Gonzalez and made/approved the management plan and take responsibility for the patient management. This will serve as my Supervisory note and shared attestation. I did perform a substantive portion of the visit including all aspects of the Medical Decision Making. I wore appropriate PPE for the entirety of this encounter. In brief, Apoorva Gonzalez is a 74 y.o. that presents to the emergency department with syncopal episode during a procedure earlier today. Patient was undergoing an angiogram for her new fistula of her left arm. She was given fentanyl and Versed for the procedure and her blood pressure dropped to 80s over 40s. She did have a syncopal event where she lost consciousness. Currently asymptomatic. No chest pain shortness of breath lightheadedness dizziness. No abdominal pain nausea vomiting. Focused exam: Constitutional: Well-developed and well-nourished. No distress. HENT: Mucous membranes dry Cardiovascular: Regular rate and rhythm. No abnormal heart sounds heard. Pulmonary/Chest: Effort normal with no conversational dyspnea. Clear to auscultation bilaterally. Abdominal: Soft. No tenderness. No distension or guarding. Musculoskeletal: No edema Neuro: No focal deficit Skin: Skin is warm and dry. Left arm fistula with overlying bandage, palpable thrill Psychiatric: Normal mood and affect. Brief ED course/MDM: 74-year-old female with ESRD on dialysis presenting after syncopal episode during a procedure earlier today. Differential diagnosis includes medication side effect versus hypovolemia versus electrolyte abnormalities. BMP consistent with ESRD on dialysis. Does have hyperkalemia at 5.6 with peaked T waves noted on EKG so urgent dialysis was arranged. Also had elevated troponin at 33. During the syncopal episode earlier she had been given Versed and fentanyl which dropped her blood pressure and caused her to pass out. Her blood pressures remained stable while here in the emergency department. Blood pressure is normal after dialysis. Patient is feeling well able to ambulate prior to discharge home. Discharged home in stable condition Diagnostics interpreted by me: Xray(s) Chest x-ray without acute process I personally discussed the patient's management with other clinicians: none All diagnostic, treatment, and disposition decisions were made by myself in conjunction with the Resident. I also supervised saavedra portions of any procedures performed by the Resident. For all further details of the patient's emergency department visit, please see their documentation. (Comment: Please note this report has been produced using speech recognition software and may contain errors related to that system including errors in grammar, punctuation, and spelling, as well as words and phrases that may be inappropriate. If there are any questions or concerns please feel free to contact the dictating provider for clarification.) Rivas Sanchez DO [employer] Rivas Sanchez DO 07/17/242042 [employer] Phone: 06-29-2024 Hospital Discharge instructions Robson Syed DO - 06/29/2024 6:56 PM EDT You were seen today in the Emergency Department for weakness and fall. Follow up with care physician as needed Return to the ED if you develop shortness of breath, chest pain nausea or vomiting, or any new signs, symptoms, or concerns arise. Thank you for letting us take care of you today. documented in this encounter [facility] 06-29-2024 Emergency department Note Pt returned from dialysis at this time [facility] 06-29-2024 Emergency department Note Pt returned from dialysis at this time Pt notified that she will go to dialysis between 2-3 pm today. Report given to CYNTHIA Schulte EMERGENCY DEPARTMENT ENCOUNTER Pt Name: Apoorva Gonzalez Birthdate 1950 Date of evaluation: 06/29/2024 ED Provider: Kierra Escamilla PA-C CHIEF COMPLAINT Chief Complaint Patient presents with Fall Pt presents to ED after a fall. Pt family member states she had a jerking movement and began to fall when he was able to catch her. Pt denies hitting head or LOC. Pt states she is on dialysis and goes 3 times a week. Pt states she has been having jerking movements since yesterday evening. HISTORY OF PRESENT ILLNESS (Location/Symptom, Timing/Onset, Context/Setting, Quality, Duration, Modifying Factors, Severity) Note limiting factors. I wore appropriate PPE for the entirety of this encounter. HPI Apoorva Gonzalez is a 74 y.o. female who presents to the emergency department for evaluation of jerking movements ongoing since yesterday. Patient states that she is on dialysis Wednesday, , Wednesday at her days. States she has not missed a session. She notes over the past 24 hours have developed these involuntary movements described as her whole body jerking. She notes this occurred and caused her to fall but her significant other was there to catch her so she did not fall to the ground, no LOC, did not hit her head she. She denies any injuries from this. She states that she feels well has no associated chest pain, shortness of breath, weakness or fatigue. She does note however that when she gets up to ambulate she will have these jerking movements which makes it difficult for her to ambulate. She denies any fever, chills, cough, congestion or recent illness. Nursing Notes were reviewed. Limitations to history: None Outside historians: None REVIEW OF SYSTEMS Review of Systems 14 systems reviewed, positives and pertinent negatives as per HPI. All other systems were reviewed and are negative. PAST MEDICAL HISTORY Past Medical History: Diagnosis Date Chronic kidney disease (CKD) Hemodialysis patient (CMS/HCC) (HCC) Wednesday, , Wednesday History of blood transfusion 02/27/2022 Hypertension Seizure ([facility]) Developed seizure-like activity on 02/24 during hospital admission SURGICAL HISTORY Past Surgical History: Procedure Laterality Date AV FISTULA PLACEMENT Left 08/07/2022 COLONOSCOPY N/A 01/25/2024 Performed by Chrissy Gilman MD at [facility] ENDOSCOPY IR CVC TUNNELED DIALYSIS CATHETER PLACEMENT 02/27/2022 IR CVC TUNNELED CATHETER PLACEMENT 02/27/2022 Candis Andrade MD [facility] SPECIAL PROCEDURES IR EMBOLIZATION 01/24/2024 IR EMBOLIZATION 01/24/2024 Jovan Glynn MD [facility] SPECIAL PROCEDURES CURRENT MEDICATIONS Previous Medications AMLODIPINE (NORVASC) 5 MG TABLET Take 1 tablet (5 mg) by mouth daily. ASTRAGALUS PO Take 1 mL by mouth 3 times daily. ATORVASTATIN (LIPITOR) 40 MG TABLET Take 1 tablet (40 mg) by mouth Nightly. CALCIUM ACETATE (PHOSLO) 667 MG TABLET Take 1 tablet by mouth in the morning and 1 tablet at noon and 1 tablet in the evening. Take with meals. CHOLECALCIFEROL (VITAMIN D-3) 125 MCG (5000 UT) CAPSULE Take 5,000 Units by mouth daily. LEVETIRACETAM (KEPPRA) 500 MG TABLET Take 1 tablet (500 mg) by mouth daily. NON FORMULARY Take 1 mL by mouth 3 times daily. Kidney tonic NON FORMULARY Take 1 capsule by mouth daily. [place] OMEGA-3 (FISH OIL) 1000 MG CAPSULE Take 1,000 mg by mouth daily. THIAMINE HCL (VITAMIN B-1) 250 MG TABLET Take 250 mg by mouth daily. ALLERGIES Patient has no known allergies. FAMILY HISTORY Family History Problem Relation Name Age of Onset Dementia Mother Stroke Father Prostate cancer Brother 69 Breast cancer Cousin 32 Stomach cancer Mother's Sister 70 SOCIAL HISTORY Social History Socioeconomic History Marital status: Tobacco Use Smoking status: Never Smokeless tobacco: Never Vaping Use Vaping status: Never Used Substance and Sexual Activity Alcohol use: Yes Alcohol/week: 2.0 standard drinks of alcohol Types: 2 Glasses of wine per week Comment: weekly Drug use: Never Social Drivers of Health Food Insecurity: No Food Insecurity (03/02/2024) Hunger Vital Sign Worried About Running Out of Food in the Last Year: Never true Ran Out of Food in the Last Year: Never true Transportation Needs: No Transportation Needs (03/02/2024) PRAPARE - Transportation Lack of Transportation (Medical): No Lack of Transportation (Non-Medical): No Intimate Partner Violence: Not At Risk (03/02/2024) Humiliation, Afraid, Rape, and Kick questionnaire Fear of Current or Ex-Partner: No Emotionally Abused: No Physically Abused: No Sexually Abused: No Housing Stability: Low Risk (03/02/2024) Housing Stability Vital Sign Unable to Pay for Housing in the Last Year: No Number of Times Moved in the Last Year: 0 Homeless in the Last Year: No SCREENINGS Lety Coma Scale Best Eye Response: Spontaneous Best Verbal Response: Oriented Best Motor Response: Follows commands Lety Coma Scale Score: 15 PHYSICAL EXAM ED Triage Vitals [06/29/24 0601] Temp Heart Rate Resp BP 36.2 C (97.1 F) 90 20 (!) 203/94 SpO2 Temp Source Heart Rate Source Patient Position 100 % Temporal Monitor -- BP Location FiO2 (%) -- -- Physical Exam Vitals and nursing note reviewed. Constitutional: General: She is not in acute distress. Appearance: She is well-developed. Comments: 74-year-old female, alert and oriented, answering questions appropriately. Intermittent myoclonic jerks involving all extremities on exam. HENT: Head: Normocephalic and atraumatic. Eyes: Conjunctiva/sclera: Conjunctivae normal. Cardiovascular: Rate and Rhythm: Normal rate and regular rhythm. Heart sounds: No murmur heard. Pulmonary: Effort: Pulmonary effort is normal. No respiratory distress. Breath sounds: Normal breath sounds. Abdominal: Palpations: Abdomen is soft. Tenderness: There is no abdominal tenderness. Musculoskeletal: General: No swelling. Cervical back: Neck supple. Skin: General: Skin is warm and dry. Capillary Refill: Capillary refill takes less than 2 seconds. Neurological: Mental Status: She is alert. Comments: No focal weakness. Equal strength and sensation of the bilateral upper and lower extremities. Neurovascular intact distally. No acute focal neurological deficit. Normal finger-nose. Normal [id number]. NIHSS 0 Psychiatric: Mood and Affect: Mood normal. DIAGNOSTIC RESULTS RADIOLOGY (Per Emergency Physician): Interpretation per the Radiologist below, if available at the time of this note: CT head wo IV contrast Final Result No acute intracranial abnormalities or significant change from the prior study. Generalized brain parenchymal volume loss and moderate chronic small vessel ischemic changes bilaterally. Report Dictated on Electronically Signed By: Andrea Gonzales MD Electronically Signed Date/Time: 06/29/2024 7:49 AM EDT LABS: Labs Reviewed CBC WITH AUTO DIFFERENTIAL - Abnormal Result Value Auto WBC 10.2 RBC 2.54 (*) Hemoglobin 8.0 (*) Hematocrit 24.0 (*) MCV 94.5 MCH 31.5 MCHC 33.3 RDW 16.1 (*) Platelets 370 MPV 10.4 nRBC 0.0 Neutrophils Relative 71.6 Lymphocytes Relative 16.0 Monocytes Relative 9.5 Eosinophils Relative 1.6 Basophils Relative 0.9 Immature Grans % 0.4 Neutrophils Absolute 7.3 Lymphocytes Absolute 1.6 Monocytes Absolute 1.0 (*) Eosinophils Absolute 0.2 Basophils Absolute 0.1 Immature Grans Absolute 0.0 COMPREHENSIVE METABOLIC PANEL - Abnormal SODIUM 137 POTASSIUM 6.0 (*) CHLORIDE 93 (*) CARBON DIOXIDE 24 ANION GAP 20 (*) UREA NITROGEN 96 (*) CREATININE 11.11 (*) GLUCOSE 89 CALCIUM 8.4 (*) AST (SGOT) 23 ALT 8 ALKALINE PHOSPHATASE 93 ALBUMIN 3.4 BILIRUBIN, TOTAL 0.6 TOTAL PROTEIN 7.1 eGFR 3.3 (*) MAGNESIUM - Abnormal MAGNESIUM 2.9 (*) Narrative: Higher values can be expected in females during menses. THYROID STIMULATING HORMONE - Normal THYROID STIMULATING HORMONE 0.95 FREE T4 - Normal FREE T4 1.40 AMMONIA - Normal AMMONIA 22 COMPLETE URINALYSIS WITH REFLEX TO CULTURE Narrative: The following orders were created for panel order Urinalysis complete with reflex to Culture. Procedure Abnormality Status --------- ------ Complete Urinalysis[[id number]] Please view results for these tests on the individual orders. COMPLETE URINALYSIS All other labs were within normal range or not returned as of this dictation. EMERGENCY DEPARTMENT COURSE and DIFFERENTIAL DIAGNOSIS/MDM: Vitals: Vitals: 06/29/24 1445 06/29/24 1500 06/29/24 1515 06/29/24 1530 BP: (!) 194/78 (!) 185/92 (!) 200/89 (!) 198/95 BP Location: Patient Position: Pulse: 84 83 79 82 Resp: Temp: TempSrc: SpO2: Weight: Height: Medications sodium zirconium cyclosilicate (Lokelma) packet 15 g (15 g Oral Given 06/29/24 0916) ED care was supervised by Dr. Abebe who independently examined and evaluated the patient. Please see their attestation note for further details. In brief, Apoorva Gonzalez is a 74 y.o. female who presented to the emergency department for evaluation of jerking movements onset for the past 24 hours. This resulted in a fall, she did not fall to the ground as her family had caught her, did not hit her head no LOC. Presents to the ED with a blood pressure 191/81, afebrile without tachycardia. She is alert and oriented and answering questions appropriately. Please refer to history and physical exam for the details. Nursing notes and medical records reviewed, PMH of hypertensive emergency, GI bleed, anemia. She is on hemodialysis and produces urine. Differential considerations included electrolyte derangement versus brain mass versus brain bleed versus thyroid abnormality versus liver disease Initial workup includes CBC, CMP, magnesium, TSH, T4, UA, ammonia, CT head without IV contrast Upon reassessment patient is resting comfortably in the bed in no acute distress, vitals have remained hemodynamically stable throughout the course. Patient has no new complaints at this time. Lab workup results CBC shows no significant leukocytosis, anemia of 8.0, similar to her baseline. TSH and T4 within normal limits. Ammonia is unremarkable. Magnesium is 2.9, potassium of 6.0, creatinine of 11.11, anion gap 20, normal bicarb, no transaminitis. Patient will be given 15 g Lokelma. See Miguel for EKG interpretation by attending. Imaging results per radiology CT head shows no acute intracranial normality. Will reach out to patient's nephrology for patient to obtain dialysis. Was to go to dialysis this morning however came to the ED instead. Discussed with Dr. Castaneda who will have the patient have dialysis completed while here in the ED. Will plan to reevaluate for final disposition after dialysis. 4:00PM I have signed out Apoorva Gonzalez's Emergency Department care to Dr. Syed. We discussed the pertinent history, physical exam, completed/pending test results (if applicable) and current treatment plan. Please refer to his/her chart for the patients remaining Emergency Department course and final disposition. PROCEDURES: Unless otherwise noted below, none Procedures FINAL IMPRESSION 1. Myoclonus 2. Fall, initial encounter 3. Hyperkalemia DISPOSITION PATIENT REFERRED TO: No follow-up provider specified. DISCHARGE MEDICATIONS: New Prescriptions No medications on file (Comment: Please note this report has been produced using speech recognition software and may contain errors related to that system including errors in grammar, punctuation, and spelling, as well as words and phrases that may be inappropriate. If there are any questions or concerns please feel free to contact the dictating provider for clarification.) Kierra Escamilla PA-C (electronically signed) Emergency Medicine Provider Kierra Escamilla PA-C 06/29/24 1543 Cosigned by Veronica Abebe MD at 06/29/2024 4:48 PM EDT Emergency Department Encounter [facility] EMERGENCY DEPT Patient: Apoorva Gonzalez : 1950 Date of Evaluation: 06/29/2024 ED Supervising Physician: Veronica Abebe MD I independently examined and evaluated Apoorva Gonzalez. I personally saw the patient and made/approved the management plan and take responsibility for the patient management. This will serve as my Supervisory note and shared attestation. I did perform a substantive portion of the visit including all aspects of the Medical Decision Making. I wore appropriate PPE for the entirety of this encounter. In brief, Apoorva Gonzalez is a 74 y.o. that presents to the emergency department with jerks/twitching that started last night. Caused her to fall. caught her and she denies injuries from that fall. Patient is due for dialysis today. No prior missed sessions. Normal p.o. intake. No recent head injuries. Focused exam: Constitutional: No acute distress HEENT:Head: Atraumatic Eyes: Conjunctivae normal. PERRLA, EOMI, visual worthy full ENT: Mucous membranes moist. Normal oropharynx Neck: Normal ROM, supple CV: RRR, radial pulses equal RESP: CTAB, good respiratory effort, no increased wob GI: Abdomen soft, non-tender, non-distended, +BS, no guarding or rebound tenderness MSK: Normal bulk and tone, no gross deformity EXTR: Warm and well perfused, no edema SKIN: No rash/bruising/erythema PSYCH: Appropriate affect, cooperative behavior NEURO: Alert and oriented x 3, face symmetric, no slurred speech, CN2-12 intact, motor and sensory intact and equal bilaterally. No upper or lower extremity drift. Cerebellar (finger-nose, hpeb-[id number]-sops) normal. Brief ED course/MDM: Patient appears nontoxic. Hypertensive. Other vitals normal. Occasionally having myoclonic jerks that involve all the extremities. They seem somewhat painful/disturbing to the patient. I independently interpreted the following studies which showed: CT head ordered to evaluate for acute bleed, cranial fracture, space occupying lesions is negative for acute bleed, cranial fracture, space occupying lesions on my interpretation. No acute abnormalities on the radiologist's final read. CMP shows moderate hyperkalemia with potassium 6.0. BUN is elevated at 96. Creatinine is 11.11. CBC with mild stable chronic anemia. Magnesium is slightly elevated. Ammonia is normal. The exact cause of the patient's symptoms are unclear though the hyperkalemia and uremia may be contributing. Patient was given Lokelma p.o. for the hyperkalemia. Patient will get dialysis and then be reassessed and likely discharged home with outpatient follow-up recommended. Diagnoses as of 06/29/24 1448 Myoclonus Fall, initial encounter Hyperkalemia All diagnostic, treatment, and disposition decisions were made by myself in conjunction with the [facility]. For further details of the patient's emergency department visit, please see their documentation. (Comment: Please note this report has been produced using speech recognition software and may contain errors related to that system including errors in grammar, punctuation, and spelling, as well as words and phrases that may be inappropriate. If there are any questions or concerns please feel free to contact the dictating provider for clarification.) Veronica Abebe MD Acute [facility] Veronica Abebe MD 06/29/24 1322 documented in this encounter [facility] 06-29-2024 Nurse Note Patient Name: Apoorva Gonzalez Patient : 1950 Acct: [id number] Date of Admission: 06/29/2024 Room/Bed: [facility] Code Status: Prior Allergies: No Known Allergies Diagnosis: Patient Active Problem List Diagnosis Hypertensive emergency Gastrointestinal hemorrhage, unspecified gastrointestinal hemorrhage type Anemia Pulmonary edema, acute (HCC) Shortness of breath Treatment: Hemodilaysis 2:1 Priority: Routine Location: Acute Room Diabetic: No NPO: No Isolation Precautions: Dialysis Consent for Treatment Verified: Yes Blood Consent Verified: Not Applicable ICEBOAT: Identify, Consent, Equipment, HepB Status, Orders Complete, Access Verified, Timeliness (O2 and wall suction bedside) Second Clinician Verifying: Marlena Hammonds Time out performed prior to access at 1437. Report Received from Primary RN at 1149. Primary RN (First Initial, Last Name, Title): Lorna Greer RN Incapacitated Nurse Education Completed: Edilberto Julien RN HBsAg ONLY: Date Drawn: January 22, 2024 Results: Negative HBsAb: Date Drawn: January 22, 2024 Results: Immune >10 Order Dialyzer: Nipro Na+ Modeling: Not Applicable Dialysate Temperature (C): 36 Blood Flow Rate (BFR): 400 Dialysate Flow Rate (DFR): 600 Access to be Utilized Access: AVG Location: Upper Extremity Side: Left Needle gauge: 15 + Bruit/Thrill: Yes First Use X-ray Verified: Not Applicable OK to use line order: Yes Site Assessment: Signs and Symptoms of Infection/Inflammation: None If yes: NA Dressing: NA Site Prep: Medical Aseptic Technique Dressing Changed this Treatment: NA If yes, by whom: NA Date of Last Dressing Change: NA NA [address]?: NA Red Alcohol Caps in place?: NA Gauze Dressing?: NA Non-Dialysis Use?: No Comment: Flows: Good If access problem, who was notified: Pre and Post-Assessment Patient Vitals for the past 8 hrs: Level of Consciousness Oriented X Heart Rhythm O2 Device Bilateral Breath Sounds Skin Color Skin Condition/Temp Abdomen Inspection Bowel Sounds (All Quadrants) 06/29/24 1428 Alert (0) 3 Regular None (Room air) Clear [place] Warm;Dry;No swelling Soft Active 06/29/24 1756 Alert (0) 3 Regular None (Room air) Clear [place] Warm;Dry;No swelling -- -- Labs Lab Results Component Value Date/Time WBC 10.2 06/29/2024 0749 HGB 8.0 (L) 06/29/2024 0749 HGB 12.1 03/02/2024 0510 HCT 24.0 (L) 06/29/2024 0749 PLT 370 06/29/2024 0749 NA 137 06/29/2024 0749 K 6.0 (H) 06/29/2024 0749 CL 93 (L) 06/29/2024 0749 CO2 24 06/29/2024 0749 BUN 96 (H) 06/29/2024 0749 CREATININE 11.11 (H) 06/29/2024 0749 CALCIUM 8.4 (L) 06/29/2024 0749 PHOS 5.7 (H) 01/25/2024 0003 IV Drips and Rate/Dose Safety - Before each treatment: Dialysis Machine No.: [id number] RO Machine Number: [id number] Dialyzer Lot No.: [id number] Tubing Lot Number: [id number] All Connections Secure: Yes Venous Parameters Set: Yes Arterial Parameters Set: Yes NS Bag: Yes Saline Line Double Clamped: Yes Dialyzer: Nipro Prime Volume (mL): 200 mL RO Machine Number: [id number] RO Machine Log Sheet Completed: Yes Machine Alarm Self Test: Completed, Passed (1420) (06/29/24 1421) Air Foam Detector: Tested, Proper Function, pH Reading Extracorporeal Circuit Tested for Integrity: Yes Machine Conductivity: 13.8 Manual Conductivity: 13.6 Manual Ph: 7.2 Bleach Test (Neg): Yes Bath Temperature: 36 C (96.8 F) Conductivity Meter Serial #: [id number] Machine Functioning Alarm Free? Yes Dialysis Bath: K+ (Potassium): 2 Ca+ (Calcium): 2.5 Na+ (Sodium): 135 HCO3 (Bicarb): 35 Chlorine Testing - Before each treatment and every 4 hours: Time On: 1442 Time Off: 174 Treatment Goal: 2 Weight Height: 162.6 cm (5' 4) (06/29/24600) Weight: 50.8 kg (112 lb) (06/29/24600) BMI (Calculated): 19.22 (06/29/24600) 1st check: less than 0.1 ppm at: 1345 2nd check: less than 0.1 ppm at: 1645 3rd check: Not Applicable (if greater than 0.1 ppm, then check every 30 minutes from secondary) Access Flows and Pressures Patient Vitals for the past 8 hrs: Blood Flow Rate (mL/min) Ultrafiltration Rate (ml/hr) Arterial Pressure (mmHg) Venous Pressure (mmHg) TMP DFR Access Visible Intra-Hemodialysis Comments 06/29/24 1442 200 mL/min 830 ml/hr 140 mmHg 80 mmHg 90 600 Yes Tx initiated call light within reach 06/29/24 1445 400 mL/min 830 ml/hr -100 mmHg 190 mmHg 80 600 Yes Bfr increased 06/29/24 1500 400 mL/min 830 ml/hr -170 mmHg 200 mmHg 50 600 Yes Pt stable rmv 246 06/29/24 1515 400 mL/min 830 ml/hr -180 mmHg 210 mmHg 90 600 Yes LInes secure rmv 513 06/29/24 1530 400 mL/min 830 ml/hr -200 mmHg 210 mmHg 80 600 Yes PT resting rmv 665 06/29/24 1600 400 mL/min 830 ml/hr -90 mmHg 230 mmHg 90 600 Yes LInes secure rmv 1106 06/29/24 1615 400 mL/min 830 ml/hr -100 mmHg 220 mmHg 90 600 Yes pt resting, uf removed is 1300 06/29/24 1630 400 mL/min 830 ml/hr -110 mmHg 220 mmHg 90 600 Yes pt resting, removed: 14806/29/24 1645 400 mL/min 840 ml/hr -110 mmHg 230 mmHg 80 600 Yes LInes secure rmv 1724 06/29/24 1700 400 mL/min 840 ml/hr -100 mmHg 230 mmHg 90 600 Yes LInes secure rmv 1913 06/29/24 1715 400 mL/min 0 ml/hr -120 mmHg 170 mmHg 70 600 Yes pt cramping in legs. turned UF off and gave 200cc bolus. uf removed is 207206/29/24 1730 400 mL/min 0 ml/hr -150 mmHg 210 mmHg 70 600 Yes pt stable. uf remains off 06/29/241741 -- -- -- -- -- -- -- Tx completed rmv 2072 Vital Signs Patient Vitals for the past 24 hrs: BP Temp Temp src Pulse Resp SpO2 Height Weight 06/29/24 1756 (!) 160/76 36.5 C (97.7 F) -- 55 18 96 % -- -- 06/29/24 1742 (!) 150/76 -- -- 65 -- -- -- -- 06/29/24 1730 (!) 154/83 -- -- 74 -- -- -- -- 06/29/24 1715 110/84 -- -- 89 -- -- -- -- 06/29/24 1700 (!) 147/75 -- -- 88 -- -- -- -- 06/29/24 1645 (!) 135/94 -- -- 79 -- -- -- -- 06/29/24 1630 (!) 162/63 -- -- 77 -- -- -- -- 06/29/24 1615 (!) 147/69 -- -- 87 -- -- -- -- 06/29/24 1600 (!) 159/83 -- -- 87 -- -- -- -- 06/29/24 1530 (!) 198/95 -- -- 82 -- -- -- -- 06/29/24 1515 (!) 200/89 -- -- 79 -- -- -- -- 06/29/24 1500 (!) 185/92 -- -- 83 -- -- -- -- 06/29/24 1445 (!) 194/78 -- -- 84 -- -- -- -- 06/29/24 1442 (!) 182/96 -- -- 82 -- -- -- -- 06/29/24 1435 (!) 190/150 36.6 C (97.8 F) -- 92 18 95 % -- -- 06/29/24 1037 (!) 172/77 -- -- 79 18 97 % -- -- 06/29/24 0628 (!) 191/81 -- -- 84 18 100 % -- -- 06/29/24 0601 (!) 203/94 36.2 C (97.1 F) Temporal 90 20 100 % -- -- 06/29/24 0601 -- -- -- -- -- -- 1.626 m (5' 4) 50.8 kg (112 lb) Post-Dialysis Arterial Catheter Locking Solution: Not Applicable Venous Catheter Locking Solution: Not Applicable Post-Treatment Procedures: Blood returned, Access bleeding time < 10 minutes Machine Disinfection Process: Acid/Vinegar Clean, Heat Disinfect, Exterior Machine Disinfection Rinseback Volume (mL): 300 mL Total Liters Processed (L/min): 67.38 L/min Dialyzer Clearance: Lightly streaked Hemodialysis Intake (ml): 800 ml Hemodialysis Output (ml): 2073 ml NET Removed (ml): 1273 ml Charge: $ IP Hemodialysis Charge: Hemodialysis Provider Notification Handoff complete and report given to Primary RN at 1750. Primary RN (First Initial, Last Name, Title): Lorna Greer RN Education Person Educated: Patient Knowledge Base: Substantial Barriers to Learning?: None Preferred method of Learning: Oral Topic(s): call light education, Access Care, Signs and Symptoms of Infection, and Fluid Management Teaching Tools: Explanation Response to Education: Verbalized Understanding [facility] 06-29-2024 Nurse Note Patient Name: Apoorva Gonzalez Patient : 1950 Acct: [id number] Date of Admission: 06/29/2024 Room/Bed: [facility] Code Status: Prior Allergies: No Known Allergies Diagnosis: Patient Active Problem List Diagnosis Hypertensive emergency Gastrointestinal hemorrhage, unspecified gastrointestinal hemorrhage type Anemia Pulmonary edema, acute (HCC) Shortness of breath Treatment: Hemodilaysis 2:1 Priority: Routine Location: Acute Room Diabetic: No NPO: No Isolation Precautions: Dialysis Consent for Treatment Verified: Yes Blood Consent Verified: Not Applicable ICEBOAT: Identify, Consent, Equipment, HepB Status, Orders Complete, Access Verified, Timeliness (O2 and wall suction bedside) Second Clinician Verifying: Marlena Hammonds Time out performed prior to access at 1437. Report Received from Primary RN at 1149. Primary RN (First Initial, Last Name, Title): Lorna Greer RN Incapacitated Nurse Education Completed: Edilberto Julien RN HBsAg ONLY: Date Drawn: January 22, 2024 Results: Negative HBsAb: Date Drawn: January 22, 2024 Results: Immune >10 Order Dialyzer: Nipro Na+ Modeling: Not Applicable Dialysate Temperature (C): 36 Blood Flow Rate (BFR): 400 Dialysate Flow Rate (DFR): 600 Access to be Utilized Access: AVG Location: Upper Extremity Side: Left Needle gauge: 15 + Bruit/Thrill: Yes First Use X-ray Verified: Not Applicable OK to use line order: Yes Site Assessment: Signs and Symptoms of Infection/Inflammation: None If yes: NA Dressing: NA Site Prep: Medical Aseptic Technique Dressing Changed this Treatment: NA If yes, by whom: NA Date of Last Dressing Change: NA NA [address]?: NA Red Alcohol Caps in place?: NA Gauze Dressing?: NA Non-Dialysis Use?: No Comment: Flows: Good If access problem, who was notified: Pre and Post-Assessment Patient Vitals for the past 8 hrs: Level of Consciousness Oriented X Heart Rhythm O2 Device Bilateral Breath Sounds Skin Color Skin Condition/Temp Abdomen Inspection Bowel Sounds (All Quadrants) 06/29/24 1428 Alert (0) 3 Regular None (Room air) Clear [place] Warm;Dry;No swelling Soft Active 06/29/24 1756 Alert (0) 3 Regular None (Room air) Clear [place] Warm;Dry;No swelling -- -- Labs Lab Results Component Value Date/Time WBC 10.2 06/29/2024 0749 HGB 8.0 (L) 06/29/2024 0749 HGB 12.1 03/02/2024 0510 HCT 24.0 (L) 06/29/2024 0749 PLT 370 06/29/2024 0749 NA 137 06/29/2024 0749 K 6.0 (H) 06/29/2024 0749 CL 93 (L) 06/29/2024 0749 CO2 24 06/29/2024 0749 BUN 96 (H) 06/29/2024 0749 CREATININE 11.11 (H) 06/29/2024 0749 CALCIUM 8.4 (L) 06/29/2024 0749 PHOS 5.7 (H) 01/25/2024 0003 IV Drips and Rate/Dose Safety - Before each treatment: Dialysis Machine No.: [id number] RO Machine Number: [id number] Dialyzer Lot No.: [id number] Tubing Lot Number: [id number] All Connections Secure: Yes Venous Parameters Set: Yes Arterial Parameters Set: Yes NS Bag: Yes Saline Line Double Clamped: Yes Dialyzer: Nipro Prime Volume (mL): 200 mL RO Machine Number: [id number] RO Machine Log Sheet Completed: Yes Machine Alarm Self Test: Completed, Passed (1420) (06/29/24 1421) Air Foam Detector: Tested, Proper Function, pH Reading Extracorporeal Circuit Tested for Integrity: Yes Machine Conductivity: 13.8 Manual Conductivity: 13.6 Manual Ph: 7.2 Bleach Test (Neg): Yes Bath Temperature: 36 C (96.8 F) Conductivity Meter Serial #: [id number] Machine Functioning Alarm Free? Yes Dialysis Bath: K+ (Potassium): 2 Ca+ (Calcium): 2.5 Na+ (Sodium): 135 HCO3 (Bicarb): 35 Chlorine Testing - Before each treatment and every 4 hours: Time On: 1442 Time Off: 1742 Treatment Goal: 2 Weight Height: 162.6 cm (5' 4) (06/29/24 0601) Weight: 50.8 kg (112 lb) (06/29/24600) BMI (Calculated): 19.22 (06/29/24600) 1st check: less than 0.1 ppm at: 1345 2nd check: less than 0.1 ppm at: 1645 3rd check: Not Applicable (if greater than 0.1 ppm, then check every 30 minutes from secondary) Access Flows and Pressures Patient Vitals for the past 8 hrs: Blood Flow Rate (mL/min) Ultrafiltration Rate (ml/hr) Arterial Pressure (mmHg) Venous Pressure (mmHg) TMP DFR Access Visible Intra-Hemodialysis Comments 06/29/24 1442 200 mL/min 830 ml/hr 140 mmHg 80 mmHg 90 600 Yes Tx initiated call light within reach 06/29/24 1445 400 mL/min 830 ml/hr -100 mmHg 190 mmHg 80 600 Yes Bfr increased 06/29/24 1500 400 mL/min 830 ml/hr -170 mmHg 200 mmHg 50 600 Yes Pt stable rmv 246 06/29/24 1515 400 mL/min 830 ml/hr -180 mmHg 210 mmHg 90 600 Yes LInes secure rmv 513 06/29/24 1530 400 mL/min 830 ml/hr -200 mmHg 210 mmHg 80 600 Yes PT resting rmv 665 06/29/24 1600 400 mL/min 830 ml/hr -90 mmHg 230 mmHg 90 600 Yes LInes secure rmv 1106 06/29/24 1615 400 mL/min 830 ml/hr -100 mmHg 220 mmHg 90 600 Yes pt resting, uf removed is 1300 06/29/24 1630 400 mL/min 830 ml/hr -110 mmHg 220 mmHg 90 600 Yes pt resting, removed: 1483 06/29/24 1645 400 mL/min 840 ml/hr -110 mmHg 230 mmHg 80 600 Yes LInes secure rmv 1724 06/29/24 1700 400 mL/min 840 ml/hr -100 mmHg 230 mmHg 90 600 Yes LInes secure rmv 1913 06/29/24 1715 400 mL/min 0 ml/hr -120 mmHg 170 mmHg 70 600 Yes pt cramping in legs. turned UF off and gave 200cc bolus. uf removed is 207206/29/24 1730 400 mL/min 0 ml/hr -150 mmHg 210 mmHg 70 600 Yes pt stable. uf remains off 06/29/241741 -- -- -- -- -- -- -- Tx completed rmv 2072 Vital Signs Patient Vitals for the past 24 hrs: BP Temp Temp src Pulse Resp SpO2 Height Weight 06/29/24 1756 (!) 160/76 36.5 C (97.7 F) -- 55 18 96 % -- -- 06/29/24 174 (!) 150/76 -- -- 65 -- -- -- -- 06/29/24 1730 (!) 154/83 -- -- 74 -- -- -- -- 06/29/24 1715 110/84 -- -- 89 -- -- -- -- 06/29/24 1700 (!) 147/75 -- -- 88 -- -- -- -- 06/29/24 1645 (!) 135/94 -- -- 79 -- -- -- -- 06/29/24 1630 (!) 162/63 -- -- 77 -- -- -- -- 06/29/24 1615 (!) 147/69 -- -- 87 -- -- -- -- 06/29/24 1600 (!) 159/83 -- -- 87 -- -- -- -- 06/29/24 1530 (!) 198/95 -- -- 82 -- -- -- -- 06/29/24 1515 (!) 200/89 -- -- 79 -- -- -- -- 06/29/24 1500 (!) 185/92 -- -- 83 -- -- -- -- 06/29/24 1445 (!) 194/78 -- -- 84 -- -- -- -- 06/29/24 1442 (!) 182/96 -- -- 82 -- -- -- -- 06/29/24 1435 (!) 190/150 36.6 C (97.8 F) -- 92 18 95 % -- -- 06/29/24 1037 (!) 172/77 -- -- 79 18 97 % -- -- 06/29/24 0628 (!) 191/81 -- -- 84 18 100 % -- -- 06/29/24 0601 (!) 203/ 36.2 C (97.1 F) Temporal 90 20 100 % -- -- 06/29/24600 -- -- -- -- -- -- 1.626 m (5' 4) 50.8 kg (112 lb) Post-Dialysis Arterial Catheter Locking Solution: Not Applicable Venous Catheter Locking Solution: Not Applicable Post-Treatment Procedures: Blood returned, Access bleeding time < 10 minutes Machine Disinfection Process: Acid/Vinegar Clean, Heat Disinfect, Exterior Machine Disinfection Rinseback Volume (mL): 300 mL Total Liters Processed (L/min): 67.38 L/min Dialyzer Clearance: Lightly streaked Hemodialysis Intake (ml): 800 ml Hemodialysis Output (ml): 2073 ml NET Removed (ml): 1273 ml Charge: $ IP Hemodialysis Charge: Hemodialysis Provider Notification Handoff complete and report given to Primary RN at 1750. Primary RN (First Initial, Last Name, Title): Lorna Greer RN Education Person Educated: Patient Knowledge Base: Substantial Barriers to Learning?: None Preferred method of Learning: Oral Topic(s): call light education, Access Care, Signs and Symptoms of Infection, and Fluid Management Teaching Tools: Explanation Response to Education: Verbalized Understanding documented in this encounter [facility] 06-29-2024 Emergency department Note Pt notified that she will go to dialysis between 2-3 pm today. [facility] 06-29-2024 Emergency department Note Report given to CYNTHIA Schulte [facility] 06-29-2024 Physician Emergency department Note EMERGENCY DEPARTMENT ENCOUNTER Pt Name: Apoorva Gonzalez Birthdate 1950 Date of evaluation: 06/29/2024 ED Provider: Kierra Escamilla PA-C CHIEF COMPLAINT Chief Complaint Patient presents with Fall Pt presents to ED after a fall. Pt family member states she had a jerking movement and began to fall when he was able to catch her. Pt denies hitting head or LOC. Pt states she is on dialysis and goes 3 times a week. Pt states she has been having jerking movements since yesterday evening. HISTORY OF PRESENT ILLNESS (Location/Symptom, Timing/Onset, Context/Setting, Quality, Duration, Modifying Factors, Severity) Note limiting factors. I wore appropriate PPE for the entirety of this encounter. HPI Apoorva Gonzalez is a 74 y.o. female who presents to the emergency department for evaluation of jerking movements ongoing since yesterday. Patient states that she is on dialysis Wednesday, , Wednesday at her days. States she has not missed a session. She notes over the past 24 hours have developed these involuntary movements described as her whole body jerking. She notes this occurred and caused her to fall but her significant other was there to catch her so she did not fall to the ground, no LOC, did not hit her head she. She denies any injuries from this. She states that she feels well has no associated chest pain, shortness of breath, weakness or fatigue. She does note however that when she gets up to ambulate she will have these jerking movements which makes it difficult for her to ambulate. She denies any fever, chills, cough, congestion or recent illness. Nursing Notes were reviewed. Limitations to history: None Outside historians: None REVIEW OF SYSTEMS Review of Systems 14 systems reviewed, positives and pertinent negatives as per HPI. All other systems were reviewed and are negative. PAST MEDICAL HISTORY Past Medical History: Diagnosis Date Chronic kidney disease (CKD) Hemodialysis patient ([facility]) (HCC) Wednesday, , Wednesday History of blood transfusion 02/27/2022 Hypertension Seizure ([facility]) Developed seizure-like activity on 02/24 during hospital admission SURGICAL HISTORY Past Surgical History: Procedure Laterality Date AV FISTULA PLACEMENT Left 08/07/2022 COLONOSCOPY N/A 01/25/2024 Performed by Chrissy Gilman MD at [facility] ENDOSCOPY IR CVC TUNNELED DIALYSIS CATHETER PLACEMENT 02/27/2022 IR CVC TUNNELED CATHETER PLACEMENT 02/27/2022 Candis Andrade MD [facility] SPECIAL PROCEDURES IR EMBOLIZATION 01/24/2024 IR EMBOLIZATION 01/24/2024 Jovan Glynn MD [facility] SPECIAL PROCEDURES CURRENT MEDICATIONS Previous Medications AMLODIPINE (NORVASC) 5 MG TABLET Take 1 tablet (5 mg) by mouth daily. ASTRAGALUS PO Take 1 mL by mouth 3 times daily. ATORVASTATIN (LIPITOR) 40 MG TABLET Take 1 tablet (40 mg) by mouth Nightly. CALCIUM ACETATE (PHOSLO) 667 MG TABLET Take 1 tablet by mouth in the morning and 1 tablet at noon and 1 tablet in the evening. Take with meals. CHOLECALCIFEROL (VITAMIN D-3) 125 MCG (5000 UT) CAPSULE Take 5,000 Units by mouth daily. LEVETIRACETAM (KEPPRA) 500 MG TABLET Take 1 tablet (500 mg) by mouth daily. NON FORMULARY Take 1 mL by mouth 3 times daily. Kidney tonic NON FORMULARY Take 1 capsule by mouth daily. [place] OMEGA-3 (FISH OIL) 1000 MG CAPSULE Take 1,000 mg by mouth daily. THIAMINE HCL (VITAMIN B-1) 250 MG TABLET Take 250 mg by mouth daily. ALLERGIES Patient has no known allergies. FAMILY HISTORY Family History Problem Relation Name Age of Onset Dementia Mother Stroke Father Prostate cancer Brother 69 Breast cancer Cousin 32 Stomach cancer Mother's Sister 70 SOCIAL HISTORY Social History Socioeconomic History Marital status: Tobacco Use Smoking status: Never Smokeless tobacco: Never Vaping Use Vaping status: Never Used Substance and Sexual Activity Alcohol use: Yes Alcohol/week: 2.0 standard drinks of alcohol Types: 2 Glasses of wine per week Comment: weekly Drug use: Never Social Drivers of Health Food Insecurity: No Food Insecurity (03/02/2024) Hunger Vital Sign Worried About Running Out of Food in the Last Year: Never true Ran Out of Food in the Last Year: Never true Transportation Needs: No Transportation Needs (03/02/2024) PRAPARE - Transportation Lack of Transportation (Medical): No Lack of Transportation (Non-Medical): No Intimate Partner Violence: Not At Risk (03/02/2024) Humiliation, Afraid, Rape, and Kick questionnaire Fear of Current or Ex-Partner: No Emotionally Abused: No Physically Abused: No Sexually Abused: No Housing Stability: Low Risk (03/02/2024) Housing Stability Vital Sign Unable to Pay for Housing in the Last Year: No Number of Times Moved in the Last Year: 0 Homeless in the Last Year: No SCREENINGS [place] Coma Scale Best Eye Response: Spontaneous Best Verbal Response: Oriented Best Motor Response: Follows commands Lety Coma Scale Score: 15 PHYSICAL EXAM ED Triage Vitals [06/29/24 0601] Temp Heart Rate Resp BP 36.2 C (97.1 F) 90 20 (!) 203/94 SpO2 Temp Source Heart Rate Source Patient Position 100 % Temporal Monitor -- BP Location FiO2 (%) -- -- Physical Exam Vitals and nursing note reviewed. Constitutional: General: She is not in acute distress. Appearance: She is well-developed. Comments: 74-year-old female, alert and oriented, answering questions appropriately. Intermittent myoclonic jerks involving all extremities on exam. HENT: Head: Normocephalic and atraumatic. Eyes: Conjunctiva/sclera: Conjunctivae normal. Cardiovascular: Rate and Rhythm: Normal rate and regular rhythm. Heart sounds: No murmur heard. Pulmonary: Effort: Pulmonary effort is normal. No respiratory distress. Breath sounds: Normal breath sounds. Abdominal: Palpations: Abdomen is soft. Tenderness: There is no abdominal tenderness. Musculoskeletal: General: No swelling. Cervical back: Neck supple. Skin: General: Skin is warm and dry. Capillary Refill: Capillary refill takes less than 2 seconds. Neurological: Mental Status: She is alert. Comments: No focal weakness. Equal strength and sensation of the bilateral upper and lower extremities. Neurovascular intact distally. No acute focal neurological deficit. Normal finger-nose. Normal [id number]-dxeb. NIHSS 0 Psychiatric: Mood and Affect: Mood normal. DIAGNOSTIC RESULTS RADIOLOGY (Per Emergency Physician): Interpretation per the Radiologist below, if available at the time of this note: CT head wo IV contrast Final Result No acute intracranial abnormalities or significant change from the prior study. Generalized brain parenchymal volume loss and moderate chronic small vessel ischemic changes bilaterally. Report Dictated on Electronically Signed By: Andrea Gonzales MD Electronically Signed Date/Time: 06/29/2024 7:49 AM EDT LABS: Labs Reviewed CBC WITH AUTO DIFFERENTIAL - Abnormal Result Value Auto WBC 10.2 RBC 2.54 (*) Hemoglobin 8.0 (*) Hematocrit 24.0 (*) MCV 94.5 MCH 31.5 MCHC 33.3 RDW 16.1 (*) Platelets 370 MPV 10.4 nRBC 0.0 Neutrophils Relative 71.6 Lymphocytes Relative 16.0 Monocytes Relative 9.5 Eosinophils Relative 1.6 Basophils Relative 0.9 Immature Grans % 0.4 Neutrophils Absolute 7.3 Lymphocytes Absolute 1.6 Monocytes Absolute 1.0 (*) Eosinophils Absolute 0.2 Basophils Absolute 0.1 Immature Grans Absolute 0.0 COMPREHENSIVE METABOLIC PANEL - Abnormal SODIUM 137 POTASSIUM 6.0 (*) CHLORIDE 93 (*) CARBON DIOXIDE 24 ANION GAP 20 (*) UREA NITROGEN 96 (*) CREATININE 11.11 (*) GLUCOSE 89 CALCIUM 8.4 (*) AST (SGOT) 23 ALT 8 ALKALINE PHOSPHATASE 93 ALBUMIN 3.4 BILIRUBIN, TOTAL 0.6 TOTAL PROTEIN 7.1 eGFR 3.3 (*) MAGNESIUM - Abnormal MAGNESIUM 2.9 (*) Narrative: Higher values can be expected in females during menses. THYROID STIMULATING HORMONE - Normal THYROID STIMULATING HORMONE 0.95 FREE T4 - Normal FREE T4 1.40 AMMONIA - Normal AMMONIA 22 COMPLETE URINALYSIS WITH REFLEX TO CULTURE Narrative: The following orders were created for panel order Urinalysis complete with reflex to Culture. Procedure Abnormality Status --------- ------ Complete Urinalysis[[id number]] Please view results for these tests on the individual orders. COMPLETE URINALYSIS All other labs were within normal range or not returned as of this dictation. EMERGENCY DEPARTMENT COURSE and DIFFERENTIAL DIAGNOSIS/MDM: Vitals: Vitals: 06/29/24 1445 06/29/24 1500 06/29/24 1515 06/29/24 1530 BP: (!) 194/78 (!) 185/92 (!) 200/89 (!) 198/95 BP Location: Patient Position: Pulse: 84 83 79 82 Resp: Temp: TempSrc: SpO2: Weight: Height: Medications sodium zirconium cyclosilicate (Lokelma) packet 15 g (15 g Oral Given 06/29/24 0916) ED care was supervised by Dr. Abebe who independently examined and evaluated the patient. Please see their attestation note for further details. In brief, Apoorva Gonzalez is a 74 y.o. female who presented to the emergency department for evaluation of jerking movements onset for the past 24 hours. This resulted in a fall, she did not fall to the ground as her family had caught her, did not hit her head no LOC. Presents to the ED with a blood pressure 191/81, afebrile without tachycardia. She is alert and oriented and answering questions appropriately. Please refer to history and physical exam for the details. Nursing notes and medical records reviewed, PMH of hypertensive emergency, GI bleed, anemia. She is on hemodialysis and produces urine. Differential considerations included electrolyte derangement versus brain mass versus brain bleed versus thyroid abnormality versus liver disease Initial workup includes CBC, CMP, magnesium, TSH, T4, UA, ammonia, CT head without IV contrast Upon reassessment patient is resting comfortably in the bed in no acute distress, vitals have remained hemodynamically stable throughout the course. Patient has no new complaints at this time. Lab workup results CBC shows no significant leukocytosis, anemia of 8.0, similar to her baseline. TSH and T4 within normal limits. Ammonia is unremarkable. Magnesium is 2.9, potassium of 6.0, creatinine of 11.11, anion gap 20, normal bicarb, no transaminitis. Patient will be given 15 g Lokelma. See Miguel for EKG interpretation by attending. Imaging results per radiology CT head shows no acute intracranial normality. Will reach out to patient's nephrology for patient to obtain dialysis. Was to go to dialysis this morning however came to the ED instead. Discussed with Dr. Castaneda who will have the patient have dialysis completed while here in the ED. Will plan to reevaluate for final disposition after dialysis. 4:00PM I have signed out pAoorva Gonzalez's Emergency Department care to Dr. Syed. We discussed the pertinent history, physical exam, completed/pending test results (if applicable) and current treatment plan. Please refer to his/her chart for the patients remaining Emergency Department course and final disposition. PROCEDURES: Unless otherwise noted below, none Procedures FINAL IMPRESSION 1. Myoclonus 2. Fall, initial encounter 3. Hyperkalemia DISPOSITION PATIENT REFERRED TO: No follow-up provider specified. DISCHARGE MEDICATIONS: New Prescriptions No medications on file (Comment: Please note this report has been produced using speech recognition software and may contain errors related to that system including errors in grammar, punctuation, and spelling, as well as words and phrases that may be inappropriate. If there are any questions or concerns please feel free to contact the dictating provider for clarification.) Kierra Escamilla PA-C (electronically signed) Emergency Medicine Provider Kierra Escamilla PA-C 06/29/24 1543 Cosigned by Veronica Abebe MD at 06/29/2024 4:48 PM EDT [employer] Phone: 06-29-2024 Physician Emergency department Note Emergency Department Encounter [facility] EMERGENCY DEPT Patient: Apoorva Gonzalez : 1950 Date of Evaluation: 06/29/2024 ED Supervising Physician: Veronica Abebe MD I independently examined and evaluated Apoorva Gonzalez. I personally saw the patient and made/approved the management plan and take responsibility for the patient management. This will serve as my Supervisory note and shared attestation. I did perform a substantive portion of the visit including all aspects of the Medical Decision Making. I wore appropriate PPE for the entirety of this encounter. In brief, Apoorva Gonzalez is a 74 y.o. that presents to the emergency department with jerks/twitching that started last night. Caused her to fall. caught her and she denies injuries from that fall. Patient is due for dialysis today. No prior missed sessions. Normal p.o. intake. No recent head injuries. Focused exam: Constitutional: No acute distress HEENT:Head: Atraumatic Eyes: Conjunctivae normal. PERRLA, EOMI, visual worthy full ENT: Mucous membranes moist. Normal oropharynx Neck: Normal ROM, supple CV: RRR, radial pulses equal RESP: CTAB, good respiratory effort, no increased wob GI: Abdomen soft, non-tender, non-distended, +BS, no guarding or rebound tenderness MSK: Normal bulk and tone, no gross deformity EXTR: Warm and well perfused, no edema SKIN: No rash/bruising/erythema PSYCH: Appropriate affect, cooperative behavior NEURO: Alert and oriented x 3, face symmetric, no slurred speech, CN2-12 intact, motor and sensory intact and equal bilaterally. No upper or lower extremity drift. Cerebellar (finger-nose, puvt-kn-dehy) normal. Brief ED course/MDM: Patient appears nontoxic. Hypertensive. Other vitals normal. Occasionally having myoclonic jerks that involve all the extremities. They seem somewhat painful/disturbing to the patient. I independently interpreted the following studies which showed: CT head ordered to evaluate for acute bleed, cranial fracture, space occupying lesions is negative for acute bleed, cranial fracture, space occupying lesions on my interpretation. No acute abnormalities on the radiologist's final read. CMP shows moderate hyperkalemia with potassium 6.0. BUN is elevated at 96. Creatinine is 11.11. CBC with mild stable chronic anemia. Magnesium is slightly elevated. Ammonia is normal. The exact cause of the patient's symptoms are unclear though the hyperkalemia and uremia may be contributing. Patient was given Lokelma p.o. for the hyperkalemia. Patient will get dialysis and then be reassessed and likely discharged home with outpatient follow-up recommended. Diagnoses as of 06/29/24 1448 Myoclonus Fall, initial encounter Hyperkalemia All diagnostic, treatment, and disposition decisions were made by myself in conjunction with the [facility]. For further details of the patient's emergency department visit, please see their documentation. (Comment: Please note this report has been produced using speech recognition software and may contain errors related to that system including errors in grammar, punctuation, and spelling, as well as words and phrases that may be inappropriate. If there are any questions or concerns please feel free to contact the dictating provider for clarification.) Veronica Abebe MD [employer] Veronica Abebe MD 06/29/24 [facility]2 [facility] Nurse Note Family member here to take patient home, DC papers given to patient, Education completed by mily MARIE but reinforced [facility] 03-03-2024 Nurse Note Family member here to take patient home, DC papers given to patient, Education completed by mily MARIE but reinforced Patient return from dialysis. Alert and oriented. Tele removed and IV Dc'd. States that she called family member for ride home and he is on the way Patient Name: Apoorva Gonzalez Patient : 1950 Acct: [id number] Date of Admission: 03/02/2024 Room/Bed: [facility] B Code Status: Full Code Allergies: No Known Allergies Diagnosis: Patient Active Problem List Diagnosis Hypertensive emergency Gastrointestinal hemorrhage, unspecified gastrointestinal hemorrhage type Anemia Pulmonary edema, acute (HCC) Shortness of breath Treatment: Hemodilaysis 2:1 Priority: Routine Location: Acute Room Diabetic: No NPO: No Isolation Precautions: Dialysis Consent for Treatment Verified: Yes Blood Consent Verified: Not Applicable ICEBOAT: Identify, Consent, Equipment, HepB Status, Orders Complete, Access Verified, Timeliness (o2 and suction functional @ bedside) Second Clinician Verifying: Vi Renteria RN Time out performed prior to access at 1605. Report Received from Primary RN at 1358. Primary RN (First Initial, Last Name, Title): Isabela Birmingham RN Incapacitated Nurse Education Completed: ws HBsAg ONLY: Date Drawn: January 22, 2024 Results: Negative HBsAb: Date Drawn: January 22, 2024 Results: Immune >10 Order Dialyzer: Nipro Na+ Modeling: Not Applicable Dialysate Temperature (C): 36 Blood Flow Rate (BFR): 400 Dialysate Flow Rate (DFR): 600 Access to be Utilized Access: AVG Location: Upper Extremity Side: Left Needle gauge: 15 + Bruit/Thrill: Yes First Use X-ray Verified: Not Applicable OK to use line order: Not Applicable Site Assessment: Signs and Symptoms of Infection/Inflammation: None If yes: Not Applicable Dressing: na Site Prep: Medical Aseptic Technique Dressing Changed this Treatment: na If yes, by whom: na Date of Last Dressing Change: na na [address]?: na Red Alcohol Caps in place?: na Gauze Dressing?: na Non-Dialysis Use?: No Comment: Flows: Good If access problem, who was notified: Pre and Post-Assessment Patient Vitals for the past 8 hrs: Level of Consciousness Heart Rhythm O2 Device Bilateral Breath Sounds Skin Condition/Temp Abdomen Inspection Bowel Sounds (All Quadrants) 03/03/24 1546 Alert (0) Regular None (Room air) Diminished Warm;Dry Soft Audible 03/03/24 1753 -- -- -- Diminished Warm;Dry Soft Active 03/03/24 1910 Alert (0) Regular -- -- -- -- -- Labs Lab Results Component Value Date/Time WBC 7.5 03/03/2024520 HGB 10.2 (L) 03/03/2024520 HGB 12.1 03/02/2024 05 HCT 32.8 (L) 03/03/2024520 PLT 409 03/03/2024520 NA 138 03/03/2024520 K 5.0 03/03/2024520 CL 98 03/03/2024520 CO2 28 03/03/2024520 BUN 42 (H) 03/03/2024520 CREATININE 8.03 (H) 03/03/2024520 CALCIUM 8.3 (L) 03/03/2024520 PHOS 5.7 (H) 01/25/2024 0003 IV Drips and Rate/Dose Safety - Before each treatment: Dialysis Machine No.: [id number] Machine Number: [id number] Dialyzer Lot No.: [id number] Tubing Lot Number: [id number] [employer] Secure: Yes Venous Parameters Set: Yes Arterial Parameters Set: Yes NS Bag: Yes Saline Line Double Clamped: Yes Dialyzer: Nipro Prime Volume (mL): 200 mL RO Machine Number: [id number] RO Machine Log Sheet Completed: Yes Machine Alarm Self Test: Completed, Passed (666) (03/03/24 155) Air Foam Detector: Tested, Proper Function Extracorporeal Circuit Tested for Integrity: Yes Machine Conductivity: 13.6 Manual Conductivity: 13.7 Machine Ph: 7 Manual Ph: 7 Bleach Test (Neg): Yes Bath Temperature: 36 C (96.8 F) Conductivity Meter Serial #: [id number] Machine Functioning Alarm Free? Yes Dialysis Bath: K+ (Potassium): 2 Ca+ (Calcium): 2.5 Na+ (Sodium): 137 HCO3 (Bicarb): 35 Chlorine Testing - Before each treatment and every 4 hours: Time On: 1609 Time Off: 1909 Treatment Goal: 2L Weight Height: 162.6 cm (5' 4) (03/02/24 0956) Weight: 47.8 kg (105 lb 6.4 oz) (03/03/24413) BMI (Calculated): 18.08 (03/03/24413) 1st check: less than 0.1 ppm at: 1445 2nd check: less than 0.1 ppm at: 1745 3rd check: Not Applicable (if greater than 0.1 ppm, then check every 30 minutes from secondary) Access Flows and Pressures Patient Vitals for the past 8 hrs: Blood Flow Rate (mL/min) Ultrafiltration Rate (ml/hr) Arterial Pressure (mmHg) Venous Pressure (mmHg) TMP DFR Access Visible Intra-Hemodialysis Comments 03/03/24 1546 -- -- -- -- -- -- Yes pt aware of call light within reach and educated on use of call light 03/03/24 1610 200 mL/min 830 ml/hr -30 mmHg 50 mmHg 70 600 Yes tx iniated lines secured pt stable 03/03/24 1612 400 mL/min 830 ml/hr -110 mmHg 150 mmHg 90 600 Yes bfr increased 03/03/24 1615 400 mL/min 840 ml/hr -140 mmHg 160 mmHg 80 600 Yes pt stable, uf removed is 140 03/03/24 1630 400 mL/min 840 ml/hr -150 mmHg 170 mmHg 80 600 Yes pt alert, UFremoved 287 03/03/24 1645 400 mL/min 840 ml/hr -160 mmHg 180 mmHg 70 600 Yes Line secure, UF removed 511 03/03/24 1700 400 mL/min 840 ml/hr -160 mmHg 170 mmHg 70 600 Yes pt stable, watching tv, 710 uf removed 03/03/24 1715 400 mL/min 840 ml/hr -170 mmHg 180 mmHg 80 600 Yes pt stable, lines secured call light within reach 891 uf removed 03/03/24 1734 400 mL/min 840 ml/hr -170 mmHg 180 mmHg 70 600 Yes Pt stable rmvd 1148. Pt on phone. Call light in reach. 03/03/24 1745 400 mL/min 830 ml/hr -170 mmHg 180 mmHg 70 600 Yes Pt stable rmvd 1300. Lines secure. Pt on phone. 03/03/24 1801 400 mL/min 830 ml/hr -180 mmHg 170 mmHg 80 600 Yes Pt stable rmvd 1509. Pt watching tv.. 03/03/24 1816 400 mL/min 830 ml/hr -190 mmHg 170 mmHg 80 600 Yes Pt stable watfgching tv. Rmvd 1722. Lines secure. 03/03/24 1831 400 mL/min 830 ml/hr -180 mmHg 170 mmHg 80 600 Yes Pt alert watching tv, rmvd 1927. 03/03/24 1846 400 mL/min 830 ml/hr -190 mmHg 180 mmHg 40 600 Yes Pt alert stable rmvd 2125. watching tv. 03/03/24 1900 400 mL/min 830 ml/hr -180 mmHg 180 mmHg 80 600 Yes Pt alert resting. Watching tv. Rmvd 2368. 03/03/24 1910 -- -- -- -- -- -- Yes tx complete pt stable 2500 uf removed Vital Signs Patient Vitals for the past 24 hrs: BP Temp Temp src Pulse Resp SpO2 Weight 03/03/241917 149/81 -- -- 92 -- -- -- 03/03/24 1910 146/83 36.7 C (98 F) -- 91 16 98 % -- 03/03/24 1900 159/87 -- -- 95 -- -- -- 03/03/24 1846 155/82 -- -- 92 -- -- -- 03/03/24 1831 156/88 -- -- 89 -- -- -- 03/03/24 1816 (!) 163/90 -- -- 91 -- -- -- 03/03/24 1801 (!) 166/89 -- -- 92 -- -- -- 03/03/24 1745 (!) 184/92 -- -- 92 -- -- -- 03/03/24 1734 (!) 176/95 -- -- 88 -- -- -- 03/03/24 1715 (!) 188/98 -- -- 86 -- -- -- 03/03/24 1700 (!) 187/90 -- -- 85 -- -- -- 03/03/24 1645 (!) 196/90 -- -- 83 -- -- -- 03/03/24 1630 (!) 183/96 -- -- 82 -- -- -- 03/03/24 1615 (!) 179/89 -- -- 80 -- -- -- 03/03/24 1612 (!) 179/89 -- -- 80 -- -- -- 03/03/24 1610 (!) 188/88 -- -- 81 -- -- -- 03/03/24 1546 159/86 36.7 C (98 F) -- 84 16 95 % -- 03/03/24 1500 130/71 36.2 C (97.1 F) Temporal 83 16 96 % -- 03/03/24 1034 143/75 36.1 C (97 F) Temporal 81 16 98 % -- 03/03/24 0723 146/75 36.2 C (97.1 F) Temporal 77 16 99 % -- 03/03/24 0414 159/85 36.4 C (97.6 F) Temporal 83 15 98 % 47.8 kg (105 lb 6.4 oz) 03/02/24 2307 139/65 36.3 C (97.3 F) Temporal 85 20 97 % -- 03/02/24 1939 121/58 36.6 C (97.8 F) Temporal 91 20 97 % -- Post-Dialysis Arterial Catheter Locking Solution: Not Applicable Venous Catheter Locking Solution: Not Applicable Post-Treatment Procedures: Blood returned, Access bleeding time < 10 minutes Machine Disinfection Process: Acid/Vinegar Clean, Heat Disinfect, Exterior Machine Disinfection Rinseback Volume (mL): 300 mL Total Liters Processed (L/min): 65.5 L/min Dialyzer Clearance: Lightly streaked Hemodialysis Intake (ml): 500 ml Hemodialysis Output (ml): 2500 ml NET Removed (ml): 2000 ml Tolerated Treatment: Good Patient Response to Treatment: stable Physician Notified: No Patient Disposition: Return to room Charge: $ IP Hemodialysis Charge: Hemodialysis Provider Notification Handoff complete and report given to Primary RN at 1920. Primary RN (First Initial, Last Name, Title): Ricardo Cramer RN Education Person Educated: Patient Knowledge Base: Minimal Barriers to Learning?: None Preferred method of Learning: Oral Topic(s): call light, Access Care, Signs and Symptoms of Infection, and Fluid Management Teaching Tools: Demonstration Response to Education: Verbalized Understanding Patient Name: Apoorva Gonzalez Patient : 1950 Acct: [id number] Date of Admission: 03/02/2024 Room/Bed: [facility] B Code Status: Full Code Allergies: No Known Allergies Diagnosis: Patient Active Problem List Diagnosis Hypertensive emergency Gastrointestinal hemorrhage, unspecified gastrointestinal hemorrhage type Anemia Pulmonary edema, acute (HCC) Shortness of breath Treatment: Hemodialysis 1:1 Priority: STAT Location: Med/Surg/Tele Diabetic: Yes NPO: No Isolation Precautions: Dialysis Consent for Treatment Verified: Yes Blood Consent Verified: Yes ICEBOAT: Identify, Consent, Equipment, HepB Status, Orders Complete, Access Verified, Timeliness Second Clinician Verifying: Isabela Birmingham RN Time out performed prior to access at 1035. Report Received from Primary RN at Rickie Birmingham RN Primary RN (First Initial, Last Name, Title): [id number] Incapacitated Nurse Education Completed: Yes HBsAg ONLY: Date Drawn: January 22, 2024 Results: Negative HBsAb: Date Drawn: January 22, 2024 Results: Immune >10 Order Dialyzer: Nipro Na+ Modeling: Not Applicable Dialysate Temperature (C): 36 Blood Flow Rate (BFR): 400 Dialysate Flow Rate (DFR): 600 Access to be Utilized Access: AVG Location: Upper Extremity Side: Left Needle gauge: 15 + Bruit/Thrill: Yes First Use X-ray Verified: Not Applicable OK to use line order: Not Applicable Site Assessment: Signs and Symptoms of Infection/Inflammation: None If yes: Not Applicable Dressing: Dry and Intact Site Prep: Medical Aseptic Technique Dressing Changed this Treatment: Yes If yes, by whom: Juli MARIE Date of Last Dressing Change: March 02, [address]?: No Red Alcohol Caps in place?: No Gauze Dressing?: No Non-Dialysis Use?: No Comment: Flows: Good and Patent If access problem, who was notified: Pre and Post-Assessment Patient Vitals for the past 8 hrs: Level of Consciousness Oriented X Heart Rhythm O2 Device Bilateral Breath Sounds Skin Condition/Temp Abdomen Inspection Bowel Sounds (All Quadrants) 03/02/24 0900 -- -- -- -- Diminished -- -- -- 03/02/24 1030 Alert (0) 3 Regular Nasal cannula Clear Warm;Dry Soft Active 03/02/24 1355 Alert (0) -- Regular Nasal cannula Clear Warm;Dry Soft Active Labs Lab Results Component Value Date/Time WBC 8.5 03/02/2024 0510 HGB 10.2 (L) 03/02/2024 0510 HGB 12.1 03/02/2024 0510 HCT 32.3 (L) 03/02/2024 0510 PLT 406 03/02/2024 0510 NA 137 03/02/2024 0510 K 6.4 (HH) 03/02/2024 0510 CL 97 (L) 03/02/2024 0510 CO2 20 (L) 03/02/2024 0510 BUN 58 (H) 03/02/2024 0510 CREATININE 11.21 (H) 03/02/2024 0510 CALCIUM 8.8 03/02/2024 0510 PHOS 5.7 (H) 01/25/2024 0003 IV Drips and Rate/Dose Safety - Before each treatment: Dialysis Machine No.: [id number] RO Machine Number: [id number] Dialyzer Lot No.: [id number] Tubing Lot Number: [id number] All Connections Secure: Yes Venous Parameters Set: Yes Arterial Parameters Set: Yes NS Bag: Yes Saline Line Double Clamped: Yes Dialyzer: Nipro Prime Volume (mL): 200 mL RO Machine Number: [id number] RO Machine Log Sheet Completed: Yes Machine Alarm Self Test: Completed, Passed (03/02/24 1030) Air Foam Detector: Tested, Proper Function, pH Reading Extracorporeal Circuit Tested for Integrity: Yes Machine Conductivity: 13.8 Manual Conductivity: 13.6 Machine Ph: 7 Manual Ph: 7 Bleach Test (Neg): Yes Bath Temperature: 36 C (96.8 F) Conductivity Meter Serial #: [id number] Machine Functioning Alarm Free? Yes Dialysis Bath: K+ (Potassium): 2 Ca+ (Calcium): 2.5 Na+ (Sodium): 137 HCO3 (Bicarb): 35 Chlorine Testing - Before each treatment and every 4 hours: Time On: 1041 Time Off: 1341 Treatment Goal: 2L Weight Height: 162.6 cm (5' 4) (03/02/24955) Weight: 49.3 kg (108 lb 9.6 oz) (03/02/24955) BMI (Calculated): 18.63 (03/02/24955) 1st check: less than 0.1 ppm at: 1015 2nd check: less than 0.1 ppm at: 1315 3rd check: Not Applicable (if greater than 0.1 ppm, then check every 30 minutes from secondary) Access Flows and Pressures Patient Vitals for the past 8 hrs: Blood Flow Rate (mL/min) Ultrafiltration Rate (ml/hr) Arterial Pressure (mmHg) Venous Pressure (mmHg) TMP DFR Access Visible Intra-Hemodialysis Comments 03/02/24 1041 200 mL/min 830 ml/hr -70 mmHg 60 mmHg 100 600 Yes tx started 03/02/24 1045 400 mL/min 830 ml/hr -140 mmHg 130 mmHg 100 600 Yes bfr increased 03/02/24 1100 400 mL/min 830 ml/hr -130 mmHg 140 mmHg 100 600 Yes pt resting 03/02/24 1130 400 mL/min 830 ml/hr -130 mmHg 140 mmHg 100 600 Yes stable 03/02/24 1145 400 mL/min 830 ml/hr -130 mmHg 140 mmHg 100 600 Yes lines secured 03/02/24 1200 400 mL/min 830 ml/hr -130 mmHg 140 mmHg 100 600 Yes 1097 ml off 03/02/24 1215 400 mL/min 830 ml/hr -130 mmHg 140 mmHg 100 600 Yes bicarb change ph 7.0 conduct 13.8 03/02/24 1230 400 mL/min 830 ml/hr -130 mmHg 140 mmHg 100 600 Yes pt resting 03/02/24 1245 400 mL/min 830 ml/hr -130 mmHg 140 mmHg 100 600 Yes stable 03/02/24 1300 400 mL/min 830 ml/hr -130 mmHg 140 mmHg 100 600 Yes lines secured 03/02/24 1315 400 mL/min 830 ml/hr -130 mmHg 140 mmHg 100 600 Yes stable 03/02/24 1341 200 mL/min 830 ml/hr -- -- -- -- Yes tx completed Vital Signs Patient Vitals for the past 24 hrs: BP Temp Temp src Pulse Resp SpO2 Height Weight 03/02/24 1355 (!) 182/84 36.5 C (97.7 F) -- 82 16 96 % -- -- 03/02/24 1341 (!) 172/80 -- -- 89 -- -- -- -- 03/02/24 1315 (!) 170/96 -- -- 90 -- -- -- -- 03/02/24 1300 (!) 184/88 -- -- 87 -- -- -- -- 03/02/24 1245 (!) 171/88 -- -- 82 -- -- -- -- 03/02/24 1230 (!) 171/82 -- -- 88 -- -- -- -- 03/02/24 1215 (!) 170/81 -- -- 85 -- -- -- -- 03/02/24 1200 (!) 176/88 -- -- 80 -- -- -- -- 03/02/24 1145 (!) 166/90 -- -- 84 -- -- -- -- 03/02/24 1130 (!) 169/88 -- -- 83 -- -- -- -- 03/02/24 1100 (!) 191/ -- -- 84 -- -- -- -- 03/02/24 1045 (!) 188/90 -- -- 88 -- -- -- -- 03/02/24 1041 (!) 203/99 -- -- 87 -- -- -- -- 03/02/24 1030 (!) 190/91 36.4 C (97.5 F) -- 86 16 95 % -- -- 03/02/24 0956 (!) 189/94 36.1 C (97 F) Temporal 90 20 93 % 1.626 m (5' 4) 49.3 kg (108 lb 9.6 oz) 03/02/24 0900 (!) 189/94 (!) 35.9 C (96.7 F) Temporal 90 24 93 % -- 49.3 kg (108 lb 9.6 oz) 03/02/24 0824 (!) 176/85 -- -- 90 18 -- -- -- 03/02/24 0730 (!) 185/92 -- -- 86 20 98 % -- -- 03/02/24 0700 (!) 194/78 -- -- 82 20 99 % -- -- 03/02/24 0600 (!) 200/85 -- -- (!) 113 26 100 % -- -- 03/02/24 0458 -- -- -- -- -- 98 % -- -- 03/02/24 0353 -- -- -- -- -- -- 1.626 m (5' 4) 48.5 kg (107 lb) 03/02/24 0351 (!) 208/97 36.2 C (97.1 F) Temporal 90 16 (!) 88 % -- -- Post-Dialysis Arterial Catheter Locking Solution: Not Applicable Venous Catheter Locking Solution: Not Applicable Post-Treatment Procedures: Blood returned, Access bleeding time < 10 minutes Machine Disinfection Process: Acid/Vinegar Clean, Heat Disinfect, Exterior Machine Disinfection Rinseback Volume (mL): 300 mL Total Liters Processed (L/min): 59.1 L/min Dialyzer Clearance: Moderately streaked Hemodialysis Intake (ml): 500 ml Hemodialysis Output (ml): 2500 ml NET Removed (ml): 2000 ml Tolerated Treatment: Good Patient Response to Treatment: well Physician Notified: No Patient Disposition: Return to room Charge: $ IP Hemodialysis Charge: Hemodialysis Provider Notification Handoff complete and report given to Primary RN at 1357. Primary RN (First Initial, Last Name, Title): Rickie Birmingham RN Education Person Educated: Patient Knowledge Base: Minimal Barriers to Learning?: None Preferred method of Learning: Oral Topic(s): Access Care, Signs and Symptoms of Infection, Procedural, and Treatment Options Teaching Tools: Explanation Response to Education: Verbalized Understanding documented in this encounter [facility] 03-03-2024 Nurse Note Patient return from dialysis. Alert and oriented. Tele removed and IV Dc'd. States that she called family member for ride home and he is on the way [facility] 03-03-2024 Plan of care note Problem: Pain - Adult Goal: Verbalizes/displays adequate comfort level or baseline comfort level 03/03/2024 175 by Rickie Birmingham RN Outcome: Adequate for Discharge 03/03/2024 1005 by Rickie Birmingham RN Outcome: Progressing Problem: Safety - Adult Goal: Free from fall injury 03/03/2024 1751 by Rickie Birmingham RN Outcome: Adequate for Discharge 03/03/2024 1005 by Rickie Birmingham RN Outcome: Progressing Problem: Discharge Planning Goal: Discharge to home or other facility with appropriate resources 03/03/2024 1751 by Rickie Birmingham RN Outcome: Adequate for Discharge 03/03/2024 1005 by Rickie Birmingham RN Outcome: Progressing Problem: Chronic Conditions and Co-morbidities Goal: Patient's chronic conditions and co-morbidity symptoms are monitored and maintained or improved 03/03/2024 175 by Rickie Birmingham RN Outcome: Adequate for Discharge 03/03/2024 1005 by Rickie Birmingham RN Outcome: Progressing [facility] 03-03-2024 Miscellaneous Notes Problem: Pain - Adult Goal: Verbalizes/displays adequate comfort level or baseline comfort level 03/03/2024 175 by Rickie Birmingham RN Outcome: Adequate for Discharge 03/03/2024 1005 by Rickie Birmingham RN Outcome: Progressing Problem: Safety - Adult Goal: Free from fall injury 03/03/2024 1751 by Rickie Birmingham RN Outcome: Adequate for Discharge 03/03/2024 1005 by Rickie Birmingham RN Outcome: Progressing Problem: Discharge Planning Goal: Discharge to home or other facility with appropriate resources 03/03/2024 175 by Rickie Birmingham RN Outcome: Adequate for Discharge 03/03/2024 1005 by Rickie Birmingham RN Outcome: Progressing Problem: Chronic Conditions and Co-morbidities Goal: Patient's chronic conditions and co-morbidity symptoms are monitored and maintained or improved 03/03/20241750 by Rickie Birmingham RN Outcome: Adequate for Discharge 03/03/2024 1005 by Rickie Birmingham RN Outcome: Progressing 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 as indicated: Confirmation of Payer with patient/family: Yes Payer Name: [employer] MED[employer]ARE ADVANTAGE/[employer] MEDICARE [place]: No Confirmation of Primary Care Physician: Confirmed PCP Name: Dr Spain Primary Caregiver: Self If assistance needed, confirmed caregiver ready, willing and able to care for patient at discharge: Confirmed with: Living Arrangements Current Residence: Apartment Number of Floors 1 Number of Entry Steps: (elevator) Bed/Bath Levels: Facility: Facility Name: Plan to Return: Lives with: Alone Support Systems: Family members Activities of Daily Living Ambulation: Independent Bathing/Dressing: Independent Elimination/Continence/Toileting: Independent Feeding: Independent Who Assists with Activities of Daily Living: Instrumental Activities of Daily Living Prescription Coverage: Yes Pharmacy Used: [id number] - [place], [place] - [address] Medication Management: Independent Transportation/Shopping: Independent Transportation Mode: Car Needs Assistance with Transportation at Discharge: No (Edward-friend) Meal Preparation: Independent Laundry/Cleaning: Independent Finances/Bill Paying: Independent Communication: Independent Types of Care Services/Equipment Utilized Care Services: (NA) Dialysis Type: Hemo Dialysis Provider Name/Location: [facility] Schedule: //WED Transportation to Dialysis: self Durable Medical Equipment: Patient's Goal/Discharge Plan Patient expects to be discharged to: home Discharge Planning Actions: Continue to follow Patient's Choice Rights and [employer] and Collaborative Relationships Disclosed as Indicated for Post-Acute Care: Interdisciplinary Team Engagement: Social Work Referral for: Additional Information: Met with patient at their bedside. Introduced self and role. Discussed discharge planning. Patient has insurance and prescription coverage. Discharge plan is home with HD. Patient verbalized understanding of discharge plan and agrees with plan. Nephrology following. HD. Citlali Chu RN Problem: Pain - Adult Goal: Verbalizes/displays adequate comfort level or baseline comfort level Outcome: Progressing Problem: Safety - Adult Goal: Free from fall injury Outcome: Progressing Problem: Discharge Planning Goal: Discharge to home or other facility with appropriate resources Outcome: Progressing Problem: Chronic Conditions and Co-morbidities Goal: Patient's chronic conditions and co-morbidity symptoms are monitored and maintained or improved Outcome: Progressing Problem: Pain - Adult Goal: Verbalizes/displays adequate comfort level or baseline comfort level Outcome: Progressing Problem: Safety - Adult Goal: Free from fall injury Outcome: Progressing Problem: Discharge Planning Goal: Discharge to home or other facility with appropriate resources Outcome: Progressing Problem: Chronic Conditions and Co-morbidities Goal: Patient's chronic conditions and co-morbidity symptoms are monitored and maintained or improved Outcome: Progressing Problem: Pain - Adult Goal: Verbalizes/displays adequate comfort level or baseline comfort level Outcome: Progressing Problem: Safety - Adult Goal: Free from fall injury Outcome: Progressing Problem: Discharge Planning Goal: Discharge to home or other facility with appropriate resources Outcome: Progressing Problem: Chronic Conditions and Co-morbidities Goal: Patient's chronic conditions and co-morbidity symptoms are monitored and maintained or improved Outcome: Progressing documented in this encounter [facility] 03-03-2024 Nurse Note Patient Name: Apoorva Gonzalez Patient : 1950 Acct: [id number] Date of Admission: 03/02/2024 Room/Bed: [facility] B Code Status: Full Code Allergies: No Known Allergies Diagnosis: Patient Active Problem List Diagnosis Hypertensive emergency Gastrointestinal hemorrhage, unspecified gastrointestinal hemorrhage type Anemia Pulmonary edema, acute (HCC) Shortness of breath Treatment: Hemodilaysis 2:1 Priority: Routine Location: Acute Room Diabetic: No NPO: No Isolation Precautions: Dialysis Consent for Treatment Verified: Yes Blood Consent Verified: Not Applicable ICEBOAT: Identify, Consent, Equipment, HepB Status, Orders Complete, Access Verified, Timeliness (o2 and suction functional @ bedside) Second Clinician Verifying: Vi Renteria RN Time out performed prior to access at 1605. Report Received from Primary RN at 1358. Primary RN (First Initial, Last Name, Title): Isabela Birmingham RN Incapacitated Nurse Education Completed: ws HBsAg ONLY: Date Drawn: January 22, 2024 Results: Negative HBsAb: Date Drawn: January 22, 2024 Results: Immune >10 Order Dialyzer: Nipro Na+ Modeling: Not Applicable Dialysate Temperature (C): 36 Blood Flow Rate (BFR): 400 Dialysate Flow Rate (DFR): 600 Access to be Utilized Access: AVG Location: Upper Extremity Side: Left Needle gauge: 15 + Bruit/Thrill: Yes First Use X-ray Verified: Not Applicable OK to use line order: Not Applicable Site Assessment: Signs and Symptoms of Infection/Inflammation: None If yes: Not Applicable Dressing: na Site Prep: Medical Aseptic Technique Dressing Changed this Treatment: na If yes, by whom: na Date of Last Dressing Change: na na [address]?: na Red Alcohol Caps in place?: na Gauze Dressing?: na Non-Dialysis Use?: No Comment: Flows: Good If access problem, who was notified: Pre and Post-Assessment Patient Vitals for the past 8 hrs: Level of Consciousness Heart Rhythm O2 Device Bilateral Breath Sounds Skin Condition/Temp Abdomen Inspection Bowel Sounds (All Quadrants) 03/03/24 1546 Alert (0) Regular None (Room air) Diminished Warm;Dry Soft Audible 03/03/24 1753 -- -- -- Diminished Warm;Dry Soft Active 03/03/24 1910 Alert (0) Regular -- -- -- -- -- Labs Lab Results Component Value Date/Time WBC 7.5 03/03/2024520 HGB 10.2 (L) 03/03/2024520 HGB 12.1 03/02/2024509 HCT 32.8 (L) 03/03/2024520 PLT 409 03/03/2024520 NA 138 03/03/2024520 K 5.0 03/03/2024520 CL 98 03/03/2024520 CO2 28 03/03/2024520 BUN 42 (H) 03/03/2024520 CREATININE 8.03 (H) 03/03/2024520 CALCIUM 8.3 (L) 03/03/2024520 PHOS 5.7 (H) 01/25/2024 0003 IV Drips and Rate/Dose Safety - Before each treatment: Dialysis Machine No.: [id number] RO Machine Number: [id number] Dialyzer Lot No.: [id number] Tubing Lot Number: [id number] All Connections Secure: Yes Venous Parameters Set: Yes Arterial Parameters Set: Yes NS Bag: Yes Saline Line Double Clamped: Yes Dialyzer: Nipro Prime Volume (mL): 200 mL RO Machine Number: [id number] RO Machine Log Sheet Completed: Yes Machine Alarm Self Test: Completed, Passed (9543) (03/03/24 2472) Air Foam Detector: Tested, Proper Function Extracorporeal Circuit Tested for Integrity: Yes Machine Conductivity: 13.6 Manual Conductivity: 13.7 Machine Ph: 7 Manual Ph: 7 Bleach Test (Neg): Yes Bath Temperature: 36 C (96.8 F) Conductivity Meter Serial #: [id number] Machine Functioning Alarm Free? Yes Dialysis Bath: K+ (Potassium): 2 Ca+ (Calcium): 2.5 Na+ (Sodium): 137 HCO3 (Bicarb): 35 Chlorine Testing - Before each treatment and every 4 hours: Time On: 1610 Time Off: 1910 Treatment Goal: 2L Weight Height: 162.6 cm (5' 4) (03/02/24 0956) Weight: 47.8 kg (105 lb 6.4 oz) (03/03/24413) BMI (Calculated): 18.08 (03/03/24413) 1st check: less than 0.1 ppm at: 1445 2nd check: less than 0.1 ppm at: 1745 3rd check: Not Applicable (if greater than 0.1 ppm, then check every 30 minutes from secondary) Access Flows and Pressures Patient Vitals for the past 8 hrs: Blood Flow Rate (mL/min) Ultrafiltration Rate (ml/hr) Arterial Pressure (mmHg) Venous Pressure (mmHg) TMP DFR Access Visible Intra-Hemodialysis Comments 03/03/24 1546 -- -- -- -- -- -- Yes pt aware of call light within reach and educated on use of call light 03/03/24 1610 200 mL/min 830 ml/hr -30 mmHg 50 mmHg 70 600 Yes tx iniated lines secured pt stable 03/03/24 1612 400 mL/min 830 ml/hr -110 mmHg 150 mmHg 90 600 Yes bfr increased 03/03/24 1615 400 mL/min 840 ml/hr -140 mmHg 160 mmHg 80 600 Yes pt stable, uf removed is 140 03/03/24 1630 400 mL/min 840 ml/hr -150 mmHg 170 mmHg 80 600 Yes pt alert, UFremoved 287 03/03/24 1645 400 mL/min 840 ml/hr -160 mmHg 180 mmHg 70 600 Yes Line secure, UF removed 511 03/03/24 1700 400 mL/min 840 ml/hr -160 mmHg 170 mmHg 70 600 Yes pt stable, watching tv, 710 uf removed 03/03/24 1715 400 mL/min 840 ml/hr -170 mmHg 180 mmHg 80 600 Yes pt stable, lines secured call light within reach 891 uf removed 03/03/24 1734 400 mL/min 840 ml/hr -170 mmHg 180 mmHg 70 600 Yes Pt stable rmvd 1148. Pt on phone. Call light in reach. 03/03/24 1745 400 mL/min 830 ml/hr -170 mmHg 180 mmHg 70 600 Yes Pt stable rmvd 1300. Lines secure. Pt on phone. 03/03/24 1801 400 mL/min 830 ml/hr -180 mmHg 170 mmHg 80 600 Yes Pt stable rmvd 1509. Pt watching tv.. 03/03/24 1816 400 mL/min 830 ml/hr -190 mmHg 170 mmHg 80 600 Yes Pt stable watfgching tv. Rmvd 1722. Lines secure. 03/03/24 1831 400 mL/min 830 ml/hr -180 mmHg 170 mmHg 80 600 Yes Pt alert watching tv, rmvd 1927. 03/03/24 1846 400 mL/min 830 ml/hr -190 mmHg 180 mmHg 40 600 Yes Pt alert stable rmvd 2125. watching tv. 03/03/24 1900 400 mL/min 830 ml/hr -180 mmHg 180 mmHg 80 600 Yes Pt alert resting. Watching tv. Rmvd 2368. 03/03/24 191 -- -- -- -- -- -- Yes tx complete pt stable 2500 uf removed Vital Signs Patient Vitals for the past 24 hrs: BP Temp Temp src Pulse Resp SpO2 Weight 03/03/241917 149/81 -- -- 92 -- -- -- 03/03/241909 146/83 36.7 C (98 F) -- 91 16 98 % -- 03/03/24 190 159/87 -- -- 95 -- -- -- 03/03/24 1846 155/82 -- -- 92 -- -- -- 03/03/24 1831 156/88 -- -- 89 -- -- -- 03/03/24 1816 (!) 163/90 -- -- 91 -- -- -- 03/03/24 1801 (!) 166/89 -- -- 92 -- -- -- 03/03/24 1745 (!) 184/92 -- -- 92 -- -- -- 03/03/24 1734 (!) 176/95 -- -- 88 -- -- -- 03/03/24 1715 (!) 188/98 -- -- 86 -- -- -- 03/03/24 1700 (!) 187/90 -- -- 85 -- -- -- 03/03/24 1645 (!) 196/90 -- -- 83 -- -- -- 03/03/24 1630 (!) 183/96 -- -- 82 -- -- -- 03/03/24 1615 (!) 179/89 -- -- 80 -- -- -- 03/03/24 1612 (!) 179/89 -- -- 80 -- -- -- 03/03/24 1610 (!) 188/88 -- -- 81 -- -- -- 03/03/24 1546 159/86 36.7 C (98 F) -- 84 16 95 % -- 03/03/24 1500 130/71 36.2 C (97.1 F) Temporal 83 16 96 % -- 03/03/24 1034 143/75 36.1 C (97 F) Temporal 81 16 98 % -- 03/03/24 0723 146/75 36.2 C (97.1 F) Temporal 77 16 99 % -- 03/03/24 0414 159/85 36.4 C (97.6 F) Temporal 83 15 98 % 47.8 kg (105 lb 6.4 oz) 03/02/24 2307 139/65 36.3 C (97.3 F) Temporal 85 20 97 % -- 03/02/24 1939 121/58 36.6 C (97.8 F) Temporal 91 20 97 % -- Post-Dialysis Arterial Catheter Locking Solution: Not Applicable Venous Catheter Locking Solution: Not Applicable Post-Treatment Procedures: Blood returned, Access bleeding time < 10 minutes Machine Disinfection Process: Acid/Vinegar Clean, Heat Disinfect, Exterior Machine Disinfection Rinseback Volume (mL): 300 mL Total Liters Processed (L/min): 65.5 L/min Dialyzer Clearance: Lightly streaked Hemodialysis Intake (ml): 500 ml Hemodialysis Output (ml): 2500 ml NET Removed (ml): 2000 ml Tolerated Treatment: Good Patient Response to Treatment: stable Physician Notified: No Patient Disposition: Return to room Charge: $ IP Hemodialysis Charge: Hemodialysis Provider Notification Handoff complete and report given to Primary RN at 1920. Primary RN (First Initial, Last Name, Title): Ricardo Cramer RN Education Person Educated: Patient Knowledge Base: Minimal Barriers to Learning?: None Preferred method of Learning: Oral Topic(s): call light, Access Care, Signs and Symptoms of Infection, and Fluid Management Teaching Tools: Demonstration Response to Education: Verbalized Understanding N [employer] 03-03-2024 History of Present illness Narrative [facility] Progress Note Nephrology following for ESRD HD yesterday. Events over night: Doing well BP 143/75 (BP Location: Right arm, Patient Position: Sitting) Pulse 81 Temp 36.1 C (97 F) (Temporal) Resp 16 Ht 1.626 m (5' 4) Wt 47.8 kg (105 lb 6.4 oz) SpO2 98% BMI 18.09 kg/m Input / Output: 24 HR: Intake/Output Summary (Last 24 hours) at 03/03/2024 1300 Last data filed at 03/03/2024 0845 Gross per 24 hour Intake 740 ml Output 2500 ml Net -1760 ml Physical Exam Alert and oriented x 3 NAD Neck: no JVD CV: RRR Lungs: CTA bilaterally Abd: soft, NT, ND Ext: 2+ lower extremity edema Scheduled medications amLODIPine, 10 mg, Oral, Daily atorvastatin, 40 mg, Oral, Nightly calcium acetate, 667 mg, Oral, TID WC heparin, 5,000 Units, SubCUTAneous, 2 times per day influenza, 0.5 mL, IntraMUSCular, Once levETIRAcetam, 500 mg, Oral, Daily Continuous medications PRN medications PRN medications: acetaminophen OR acetaminophen, dextrose, dextrose, glucagon (rDNA), glucose, hydrALAZINE, melatonin, ondansetron ODT OR ondansetron, polyethylene glycol (PEG) 3350 Results from last 7 days Lab Units 03/03/24 0521 SODIUM mmol/L 138 POTASSIUM mmol/L 5.0 CHLORIDE mmol/L 98 CO2 mmol/L 28 BUN mg/dL 42* CREATININE mg/dL 8.03* CALCIUM mg/dL 8.3* GLUCOSE mg/dL 91 Results from last 7 days Lab Units 03/03/24 0521 03/02/24 0510 WBC AUTO 10*3/uL 7.5 8.5 HEMOGLOBIN g/dL 10.2* 10.2* HEMOGLOBIN BG g/dl -- 12.1 HEMATOCRIT % 32.8* 32.3* PLATELETS 10*3/uL 409 406 Assessment & Plan: Apoorva Gonzalez is a 73 y.o. female with hx including ESRD, HTN, seizure who presented with uremai SOB and hyperkalemia. Hyperkalemia seen on basic metabolic panel 6.4, consistent with ESRD and missed dialysis; troponin in the normal range at 0.028; NT proBNP is elevated 26,175, consistent with fluid close review review shows alkalosis with pH 7.437, consistent with tachypnea and supplemental oxygen sampling; CBC auto differential displays anemia with hemoglobin 10.2 and hematocrit 32.3, improved from prior values .Nephrology following for ESRD. ESRD -patient on TTS schedule as outpatient -access: LUE AVG HTN -BP with acceptable control recently Volume -ultrafiltration with HD goal 4L Electrolytes -hyperkalemia -mild with recent K at 5 -correction/stabilization with HD using 2k BATH -hyponatremia -in setting of ESRD -mild with recent S Na at 138 -correction/stabilization with HD/UF Acid/base -stabilization with HD Anemia -recent HgB 10.2 -Fe/HODAN titration can be done as outpatient -transfuse PRN per primary CKD MBD -recent PO4 elevated at 6.4 -dialysis should help lower Plan: -continue HD on TTS schedule, HD today anddch home -Please message me through Convert[employer] chat with any questions or concerns. Please message me through Convert[employer] chat with any questions or concerns. Sean Castaneda MD 03/03/2024 1:00 PM [facility] [address] [place] [address], [address] [place] [address] Office: [phone] Hospitalist Progress Note 03/03/2024 9:58 AM Subjective: Admit Date: 03/02/2024 PCP: Roxie Guerin is a 73 y.o. female with past medical history below who presents with chief complaint listed above. Pt states she missed her last two dialysis sessions as she chose to go to work instead and states since Wednesday, she has had increasingly worsening sob. States last night she was unable to sleep due to her inability to breath so she came to the ED where she was found to be in severe volume overload due to missed HD. She was 88% on RA and placed on 2L O2 and her BP was 208/97. Labs consistent with ESRD and with hyperkalemia of 6.4 for which she was given hyperkalemia cocktail in the ED. Nephrology contacted from the ED to order urgent dialysis and pt admitted for further evaluation and management. . Did her HD in house Interval History: pt feels better Less sob Close to baseline Denies chest pain, Adult diet Regular; Low Potassium (Less than 3000 mg/day) @IODETAILS@ @[id number]@ Medications: amLODIPine, 10 mg, Oral, Daily atorvastatin, 40 mg, Oral, Nightly calcium acetate, 667 mg, Oral, TID WC heparin, 5,000 Units, SubCUTAneous, 2 times per day influenza, 0.5 mL, IntraMUSCular, Once levETIRAcetam, 500 mg, Oral, Daily Recent Labs 03/02/24 0510 03/03/24 0521 WBC 8.5 7.5 HGB 12.1 10.2* 10.2* PLT 406 409 Recent Labs 03/02/24 0510 03/03/24 0521 NA 137 138 K 6.4* 5.0 CL 97* 98 CO2 20* 28 BUN 58* 42* CREATININE 11.21* 8.03* GLUCOSE 110* 91 No results for input(s): AST, ALT, BILITOT, ALKPHOS in the last 72 hours. No lab exists for component: ALB No results found for: TRIG, HDL, LDLCALC, CHOL No results for input(s): INR in the last 72 hours. Recent Labs 03/02/24 0510 03/02/24 0820 03/02/24 1036 TROPONINI 0.028 0.029 0.029 Objective: Vitals: BP 146/75 (BP Location: Right arm, Patient Position: Sitting) Pulse 77 Temp 36.2 C (97.1 F) (Temporal) Resp 16 Ht 5' 4 (1.626 m) Wt 105 lb 6.4 oz (47.8 kg) SpO2 99% BMI 18.09 kg/m Pulse Ox: SpO2 Av.7 % Min: 95 % Max: 99 % Supplemental O2: O2 Flow Rate (L/min): 2 L/min General appearance: Alert and cooperative with exam Lungs: dec bs at base Heart: regular rate and rhythm Abdomen: soft, non-tender; bowel sounds normal; no masses, no organomegaly Extremities: extremities normal, atraumatic, no cyanosis or edema Neurologic: No obvious focal neurologic deficits. Assessment Principal Problem: Shortness of breath Missed HD ESRD Fluid overload Hypertensive urgency- BP 208/97 Hyperkalemia Stable chronic problems affecting care, new non-acute diagnoses: ESRD on HD TTS HTN Seizures Following with renal ? Another HD run today Plan dc home with outpt HD soon Home meds otherwise Anticipated Discharge - Date - 03/03 - Location - Home - Pending the following - course Total time spent (which include face to face and non face to face encounters) : 36 minutes See orders, continue POC Advance Directive: Full Code Magalys Can MD, [facility] Hospitalist documented in this encounter [facility] 03-03-2024 Note Formatting of this n ote might be different from the original. 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 as indicated: Confirmation of Payer with patient/family: Yes Payer Name: [employer] MEDICARE ADVANTAGE/HUMANA MEDICARE [place]: No Confirmation of Primary Care Physician: Confirmed PCP Name: Dr Spain Primary Caregiver: Self If assistance needed, confirmed caregiver ready, willing and able to care for patient at discharge: Confirmed with: Living Arrangements Current Residence: Apartment Number of Floors 1 Number of Entry Steps: (elevator) Bed/Bath Levels: Facility: Facility Name: Plan to Return: Lives with: Alone Support Systems: Family members Activities of Daily Living Ambulation: Independent Bathing/Dressing: Independent Elimination/Continence/Toileting: Independent Feeding: Independent Who Assists with Activities of Daily Living: Instrumental Activities of Daily Living Prescription Coverage: Yes [facility] Used: [id number] [facility] [place] - [address] Medication Management: Independent Transportation/Shopping: Independent Transportation Mode: Car Needs Assistance with Transportation at Discharge: No (Edward-friend) Meal Preparation: Independent Laundry/Cleaning: Independent Finances/Bill Paying: Independent Communication: Independent Types of Care Services/Equipment Utilized Care Services: (NA) Dialysis Type: Hemo Dialysis Provider Name/Location: [facility] Dialysis Schedule: //WED Transportation to Dialysis: self Durable Medical Equipment: Patient's Goal/Discharge Plan Patient expects to be discharged to: home Discharge Planning Actions: Continue to follow Patient's Choice Rights and [employer] and Collaborative Relationships Disclosed as Indicated for Post-Acute Care: Interdisciplinary Team Engagement: Social Work Referral for: Additional Information: Met with patient at their bedside. Introduced self and role. Discussed discharge planning. Patient has insurance and prescription coverage. Discharge plan is home with HD. Patient verbalized understanding of discharge plan and agrees with plan. Nephrology following. HD. Citlali Chu RN [facility] 03-03-2024 Note Formatting of this n ote might be different from the original. 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 as indicated: Confirmation of Payer with patient/family: Yes Payer Name: [employer] MEDICARE ADVANTAGE/HU[employer]NA MEDICARE : No Confirmation of Primary Care Physician: Confirmed PCP Name: Dr Spain Primary Caregiver: Self If assistance needed, confirmed caregiver ready, willing and able to care for patient at discharge: Confirmed with: Living Arrangements Current Residence: Apartment Number of Floors 1 Number of Entry Steps: (elevator) Bed/Bath Levels: Facility: Facility Name: Plan to Return: Lives with: Alone Support Systems: Family members Activities of Daily Living Ambulation: Independent Bathing/Dressing: Independent Elimination/Continence/Toileting: Independent Feeding: Independent Who Assists with Activities of Daily Living: Instrumental Activities of Daily Living Prescription Coverage: Yes Pharmacy Used: [id number] - [place], [place] - [address] Medication Management: Independent Transportation/Shopping: Independent Transportation Mode: Car Needs Assistance with Transportation at Discharge: No (Edward-friend) Meal Preparation: Independent Laundry/Cleaning: Independent Finances/Bill Paying: Independent Communication: Independent Types of Care Services/Equipment Utilized Care Services: (NA) Dialysis Type: Hemo Dialysis Provider Name/Location: [facility] Dialysis Schedule: //WED Transportation to Dialysis: self Durable Medical Equipment: Patient's Goal/Discharge Plan Patient expects to be discharged to: home Discharge Planning Actions: Continue to follow Patient's Choice Rights and [employer] and Collaborative Relationships Disclosed as Indicated for Post-Acute Care: Interdisciplinary Team Engagement: Social Work Referral for: Additional Information: Met with patient at their bedside. Introduced self and role. Discussed discharge planning. Patient has insurance and prescription coverage. Discharge plan is home with HD. Patient verbalized understanding of discharge plan and agrees with plan. Nephrology following. HD. Citlali Chu RN [employer] 03-03-2024 Plan of care note Problem: Pain - Adult Goal: Verbalizes/displays adequate comfort level or baseline comfort level Outcome: Progressing Problem: Safety - Adult Goal: Free from fall injury Outcome: Progressing Problem: Discharge Planning Goal: Discharge to home or other facility with appropriate resources Outcome: Progressing Problem: Chronic Conditions and Co-morbidities Goal: Patient's chronic conditions and co-morbidity symptoms are monitored and maintained or improved Outcome: Progressing [facility] 03-03-2024 Plan of care note Problem: Pain - Adult Goal: Verbalizes/displays adequate comfort level or baseline comfort level Outcome: Progressing Problem: Safety - Adult Goal: Free from fall injury Outcome: Progressing Problem: Discharge Planning Goal: Discharge to home or other facility with appropriate resources Outcome: Progressing Problem: Chronic Conditions and Co-morbidities Goal: Patient's chronic conditions and co-morbidity symptoms are monitored and maintained or improved Outcome: Progressing [facility] 03-02-2024 Consult note Formatting of th is note is different from the original. [facility]ph[facility] Consult Note Consults HPI Apoorva Gonzalez is a 73 y.o. female with hx including ESRD, HTN, seizure who presented t shortness of breath and orthopnea after missing dialysis session on Wednesday. Patient states she missed dialysis because she chose to go to work rather than go to dialysis. Is normally a Wednesday patient. Did get dialyzed on Wednesday. Denies any chest pain. Patient was saturating 88% on arrival, shortness of breath is now resolved on 2 L nasal cannula saturating 99%. No fevers or chills. No abdominal pain nausea or vomiting. 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 Past Medical History: Diagnosis Date Chronic kidney disease (CKD) Hemodialysis patient (CMS/HCC) (HCC) Wednesday, , Wednesday History of blood transfusion 02/27/2022 Hypertension Seizure (HCC) Developed seizure-like activity on 02/24 during hospital admission Social History Socioeconomic History Marital status: Spouse name: Not on file Number of children: Not on file Years of education: Not on file Highest education level: Not on file Occupational History Not on file Tobacco Use Smoking status: Never Smokeless tobacco: Never Vaping Use Vaping status: Never Used Substance and Sexual Activity Alcohol use: Yes Alcohol/week: 2.0 standard drinks of alcohol Types: 2 Glasses of wine per week Comment: weekly Drug use: Never Sexual activity: Not on file Other Topics Concern Not on file Social History Narrative Not on file Social Drivers of Health Financial Resource Strain: Not on file Food Insecurity: No Food Insecurity (03/02/2024) Hunger Vital Sign Worried About Running Out of Food in the Last Year: Never true Ran Out of Food in the Last Year: Never true Transportation Needs: No Transportation Needs (03/02/2024) PRAPARE - Transportation Lack of Transportation (Medical): No Lack of Transportation (Non-Medical): No Physical Activity: Not on file Stress: Not on file Social Connections: Not on file Intimate Partner Violence: Not At Risk (03/02/2024) Humiliation, Afraid, Rape, and Kick questionnaire Fear of Current or Ex-Partner: No Emotionally Abused: No Physically Abused: No Sexually Abused: No Housing Stability: Low Risk (03/02/2024) Housing Stability Vital Sign Unable to Pay for Housing in the Last Year: No Number of Times Moved in the Last Year: 0 Homeless in the Last Year: No Family History Problem Relation Name Age of Onset Dementia Mother Stroke Father Breast cancer Cousin No current facility-administered medications on file prior to encounter. Current Outpatient Medications on File Prior to Encounter Medication Sig Dispense Refill amLODIPine (Norvasc) 5 MG tablet Take 1 tablet (5 mg) by mouth daily. (Patient taking differently: Take 10 mg by mouth daily.) 30 tablet 11 ASTRAGALUS PO Take 1 mL by mouth 3 times daily. atorvastatin (Lipitor) 40 MG tablet Take 1 tablet (40 mg) by mouth Nightly. 30 tablet 11 calcium acetate (Phoslo) 667 MG tablet Take 1 tablet by mouth in the morning and 1 tablet at noon and 1 tablet in the evening. Take with meals. cholecalciferol (Vitamin D-3) 125 MCG (5000 UT) capsule Take 5,000 Units by mouth daily. levETIRAcetam (Keppra) 500 MG tablet Take 1 tablet (500 mg) by mouth daily. 30 tablet 1 NON FORMULARY Take 1 mL by mouth 3 times daily. Kidney tonic NON FORMULARY Take 1 capsule by mouth daily. [place] omega-3 (Fish Oil) 1000 MG capsule Take 1,000 mg by mouth daily. Thiamine HCl (vitamin B-1) 250 MG tablet Take 250 mg by mouth daily. Scheduled medications amLODIPine, 10 mg, Oral, Daily atorvastatin, 40 mg, Oral, Nightly calcium acetate, 667 mg, Oral, TID WC heparin, 5,000 Units, SubCUTAneous, 2 times per day [START ON 03/03/2024] influenza, 0.5 mL, IntraMUSCular, Once levETIRAcetam, 500 mg, Oral, Daily Continuous medications PRN medications PRN medications: acetaminophen OR acetaminophen, dextrose, dextrose, glucagon (rDNA), glucose, hydrALAZINE, melatonin, ondansetron ODT OR ondansetron, polyethylene glycol (PEG) 3350 Review of systems as per HPI otherwise 10 point review systems negative BP (!) 171/88 Pulse 82 Temp 36.4 C (97.5 F) Resp 16 Ht 1.626 m (5' 4) Wt 49.3 kg (108 lb 9.6 oz) SpO2 95% BMI 18.64 kg/m Input / Output: 24 HR: Intake/Output Summary (Last 24 hours) at 03/02/2024 1251 Last data filed at 03/02/2024 1106 Gross per 24 hour Intake 170 ml Output -- Net 170 ml Physical Exam Alert and oriented x 3, NAD EOMI OP clear Neck: supple, No JVD CV: RRR without m/r/g Lungs: CTA bilaterally Abd: soft NT/ND +BS Neuro: grossly intact Skin: no rashes Results from last 7 days Lab Units 03/02/24 0510 SODIUM mmol/L 137 POTASSIUM mmol/L 6.4* CHLORIDE mmol/L 97* CO2 mmol/L 20* BUN mg/dL 58* CREATININE mg/dL 11.21* GLUCOSE mg/dL 110* CALCIUM mg/dL 8.8 Results from last 7 days Lab Units 03/02/24 0510 SODIUM mmol/L 137 POTASSIUM mmol/L 6.4* CHLORIDE mmol/L 97* CO2 mmol/L 20* BUN mg/dL 58* CREATININE mg/dL 11.21* CALCIUM mg/dL 8.8 GLUCOSE mg/dL 110* Results from last 7 days Lab Units 03/02/24 0510 WBC AUTO 10*3/uL 8.5 HEMOGLOBIN g/dL 10.2* HEMOGLOBIN BG g/dl 12.1 HEMATOCRIT % 32.3* PLATELETS 10*3/uL 406 XR chest 1 view Final Result 1. Worsening bibasilar infiltrates and effusions. 2. Prominence of the central pulmonary vasculature consistent with moderate to severe congestive heart failure/fluid overload. Report Dictated on Electronically Signed By: Honorio Henson MD Electronically Signed Date/Time: 03/02/2024 4:43 AM EST Assessment: Apoorva Gonzalez is a 73 y.o. female with hx including ESRD, HTN, seizure who presented with uremai SOB and hyperkalemia. Hyperkalemia seen on basic metabolic panel 6.4, consistent with ESRD and missed dialysis; troponin in the normal range at 0.028; NT proBNP is elevated 26,175, consistent with fluid close review review shows alkalosis with pH 7.437, consistent with tachypnea and supplemental oxygen sampling; CBC auto differential displays anemia with hemoglobin 10.2 and hematocrit 32.3, improved from prior values .Nephrology following for ESRD. ESRD -patient on TTS schedule as outpatient -access: LUE AVG -Stat HD seen on HD IUF4L HTN -BP with acceptable control recently Volume -ultrafiltration with HD goal 4L Electrolytes -hyperkalemia -mild with recent K at 6.4 -correction/stabilization with HD using 2k BATH -hyponatremia -in setting of ESRD -mild with recent S Na at 137 -correction/stabilization with HD/UF Acid/base -stabilization with HD Anemia -recent HgB 10.2 -Fe/HODAN titration can be done as outpatient -transfuse PRN per primary CKD MBD -recent PO4 elevated at 6.4 -dialysis should help lower Plan: -continue HD on TTS schedule, HD today and repeat in am Please message me through [employer] chat with any questions or concerns. Sean Castaneda MD 03/02/2024 12:51 PM [facility] [address] [place] [address], [address] [place] [address] Office: [phone] [facility] 03-02-2024 Consult note Formatting of th is note is different from the original. [facility] Consult Note Consults HPI Apoorva Gonzalez is a 73 y.o. female with hx including ESRD, HTN, seizure who presented t shortness of breath and orthopnea after missing dialysis session on Wednesday. Patient states she missed dialysis because she chose to go to work rather than go to dialysis. Is normally a Wednesday patient. Did get dialyzed on Wednesday. Denies any chest pain. Patient was saturating 88% on arrival, shortness of breath is now resolved on 2 L nasal cannula saturating 99%. No fevers or chills. No abdominal pain nausea or vomiting. 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 Past Medical History: Diagnosis Date Chronic kidney disease (CKD) Hemodialysis patient ([facility]/HCC) (HCC) Wednesday, , Wednesday History of blood transfusion 02/27/2022 Hypertension Seizure (HCC) Developed seizure-like activity on 02/24 during hospital admission Social History Socioeconomic History Marital status: Spouse name: Not on file Number of children: Not on file Years of education: Not on file Highest education level: Not on file Occupational History Not on file Tobacco Use Smoking status: Never Smokeless tobacco: Never Vaping Use Vaping status: Never Used Substance and Sexual Activity Alcohol use: Yes Alcohol/week: 2.0 standard drinks of alcohol Types: 2 Glasses of wine per week Comment: weekly Drug use: Never Sexual activity: Not on file Other Topics Concern Not on file Social History Narrative Not on file Social Drivers of Health Financial Resource Strain: Not on file Food Insecurity: No Food Insecurity (03/02/2024) Hunger Vital Sign Worried About Running Out of Food in the Last Year: Never true Ran Out of Food in the Last Year: Never true Transportation Needs: No Transportation Needs (03/02/2024) PRAPARE - Transportation Lack of Transportation (Medical): No Lack of Transportation (Non-Medical): No Physical Activity: Not on file Stress: Not on file Social Connections: Not on file Intimate Partner Violence: Not At Risk (03/02/2024) Humiliation, Afraid, Rape, and Kick questionnaire Fear of Current or Ex-Partner: No Emotionally Abused: No Physically Abused: No Sexually Abused: No Housing Stability: Low Risk (03/02/2024) Housing Stability Vital Sign Unable to Pay for Housing in the Last Year: No Number of Times Moved in the Last Year: 0 Homeless in the Last Year: No Family History Problem Relation Name Age of Onset Dementia Mother Stroke Father Breast cancer Cousin No current facility-administered medications on file prior to encounter. Current Outpatient Medications on File Prior to Encounter Medication Sig Dispense Refill amLODIPine (Norvasc) 5 MG tablet Take 1 tablet (5 mg) by mouth daily. (Patient taking differently: Take 10 mg by mouth daily.) 30 tablet 11 ASTRAGALUS PO Take 1 mL by mouth 3 times daily. atorvastatin (Lipitor) 40 MG tablet Take 1 tablet (40 mg) by mouth Nightly. 30 tablet 11 calcium acetate (Phoslo) 667 MG tablet Take 1 tablet by mouth in the morning and 1 tablet at noon and 1 tablet in the evening. Take with meals. cholecalciferol (Vitamin D-3) 125 MCG (5000 UT) capsule Take 5,000 Units by mouth daily. levETIRAcetam (Keppra) 500 MG tablet Take 1 tablet (500 mg) by mouth daily. 30 tablet 1 NON FORMULARY Take 1 mL by mouth 3 times daily. Kidney tonic NON FORMULARY Take 1 capsule by mouth daily. [place] omega-3 (Fish Oil) 1000 MG capsule Take 1,000 mg by mouth daily. Thiamine HCl (vitamin B-1) 250 MG tablet Take 250 mg by mouth daily. Scheduled medications amLODIPine, 10 mg, Oral, Daily atorvastatin, 40 mg, Oral, Nightly calcium acetate, 667 mg, Oral, TID WC heparin, 5,000 Units, SubCUTAneous, 2 times per day [START ON 03/03/2024] influenza, 0.5 mL, IntraMUSCular, Once levETIRAcetam, 500 mg, Oral, Daily Continuous medications PRN medications PRN medications: acetaminophen OR acetaminophen, dextrose, dextrose, glucagon (rDNA), glucose, hydrALAZINE, melatonin, ondansetron ODT OR ondansetron, polyethylene glycol (PEG) 3350 Review of systems as per HPI otherwise 10 point review systems negative BP (!) 171/88 Pulse 82 Temp 36.4 C (97.5 F) Resp 16 Ht 1.626 m (5' 4) Wt 49.3 kg (108 lb 9.6 oz) SpO2 95% BMI 18.64 kg/m Input / Output: 24 HR: Intake/Output Summary (Last 24 hours) at 03/02/2024 1251 Last data filed at 03/02/2024 1106 Gross per 24 hour Intake 170 ml Output -- Net 170 ml Physical Exam Alert and oriented x 3, NAD EOMI OP clear Neck: supple, No JVD CV: RRR without m/r/g Lungs: CTA bilaterally Abd: soft NT/ND +BS Neuro: grossly intact Skin: no rashes Results from last 7 days Lab Units 03/02/24 0510 SODIUM mmol/L 137 POTASSIUM mmol/L 6.4* CHLORIDE mmol/L 97* CO2 mmol/L 20* BUN mg/dL 58* CREATININE mg/dL 11.21* GLUCOSE mg/dL 110* CALCIUM mg/dL 8.8 Results from last 7 days Lab Units 03/02/24 0510 SODIUM mmol/L 137 POTASSIUM mmol/L 6.4* CHLORIDE mmol/L 97* CO2 mmol/L 20* BUN mg/dL 58* CREATININE mg/dL 11.21* CALCIUM mg/dL 8.8 GLUCOSE mg/dL 110* Results from last 7 days Lab Units 03/02/24 0510 WBC AUTO 10*3/uL 8.5 HEMOGLOBIN g/dL 10.2* HEMOGLOBIN BG g/dl 12.1 HEMATOCRIT % 32.3* PLATELETS 10*3/uL 406 XR chest 1 view Final Result 1. Worsening bibasilar infiltrates and effusions. 2. Prominence of the central pulmonary vasculature consistent with moderate to severe congestive heart failure/fluid overload. Report Dictated on Electronically Signed By: Honorio Henson MD Electronically Signed Date/Time: 03/02/2024 4:43 AM EST Assessment: Apoorva Gonzalez is a 73 y.o. female with hx including ESRD, HTN, seizure who presented with uremai SOB and hyperkalemia. Hyperkalemia seen on basic metabolic panel 6.4, consistent with ESRD and missed dialysis; troponin in the normal range at 0.028; NT proBNP is elevated 26,175, consistent with fluid close review review shows alkalosis with pH 7.437, consistent with tachypnea and supplemental oxygen sampling; CBC auto differential displays anemia with hemoglobin 10.2 and hematocrit 32.3, improved from prior values .Nephrology following for ESRD. ESRD -patient on TTS schedule as outpatient -access: LUE AVG -Stat HD seen on HD IUF4L HTN -BP with acceptable control recently Volume -ultrafiltration with HD goal 4L Electrolytes -hyperkalemia -mild with recent K at 6.4 -correction/stabilization with HD using 2k BATH -hyponatremia -in setting of ESRD -mild with recent S Na at 137 -correction/stabilization with HD/UF Acid/base -stabilization with HD Anemia -recent HgB 10.2 -Fe/HODAN titration can be done as outpatient -transfuse PRN per primary CKD MBD -recent PO4 elevated at 6.4 -dialysis should help lower Plan: -continue HD on TTS schedule, HD today and repeat in am Please message me through EPIC chat with any questions or concerns. Sean Castaneda MD 03/02/2024 12:51 PM [facility] [place] [address], [address] [place] [address] Office: [phone] documented in this encounter [facility] 03-02-2024 Nurse Note Patient Name: Apoorva Gonzalez Patient : 1950 Acct: [id number] Date of Admission: 03/02/2024 Room/Bed: [facility] B Code Status: Full Code Allergies: No Known Allergies Diagnosis: Patient Active Problem List Diagnosis Hypertensive emergency Gastrointestinal hemorrhage, unspecified gastrointestinal hemorrhage type Anemia Pulmonary edema, acute (HCC) Shortness of breath Treatment: Hemodialysis 1:1 Priority: STAT Location: Med/Surg/Tele Diabetic: Yes NPO: No Isolation Precautions: Dialysis Consent for Treatment Verified: Yes Blood Consent Verified: Yes ICEBOAT: Identify, Consent, Equipment, HepB Status, Orders Complete, Access Verified, Timeliness Second Clinician Verifying: Isabela Birmingham RN Time out performed prior to access at 1035. Report Received from Primary RN at Rickie Birmingham RN Primary RN (First Initial, Last Name, Title): [id number] Incapacitated Nurse Education Completed: Yes HBsAg ONLY: Date Drawn: January 22, 2024 Results: Negative HBsAb: Date Drawn: January 22, 2024 Results: Immune >10 Order Dialyzer: Nipro Na+ Modeling: Not Applicable Dialysate Temperature (C): 36 Blood Flow Rate (BFR): 400 Dialysate Flow Rate (DFR): 600 Access to be Utilized Access: AVG Location: Upper Extremity Side: Left Needle gauge: 15 + Bruit/Thrill: Yes First Use X-ray Verified: Not Applicable OK to use line order: Not Applicable Site Assessment: Signs and Symptoms of Infection/Inflammation: None If yes: Not Applicable Dressing: Dry and Intact Site Prep: Medical Aseptic Technique Dressing Changed this Treatment: Yes If yes, by whom: Juli MARIE Date of Last Dressing Change: March 02, [address]?: No Red Alcohol Caps in place?: No Gauze Dressing?: No Non-Dialysis Use?: No Comment: Flows: Good and Patent If access problem, who was notified: Pre and Post-Assessment Patient Vitals for the past 8 hrs: Level of Consciousness Oriented X Heart Rhythm O2 Device Bilateral Breath Sounds Skin Condition/Temp Abdomen Inspection Bowel Sounds (All Quadrants) 03/02/24 0900 -- -- -- -- Diminished -- -- -- 03/02/24 1030 Alert (0) 3 Regular Nasal cannula Clear Warm;Dry Soft Active 03/02/24 1355 Alert (0) -- Regular Nasal cannula Clear Warm;Dry Soft Active Labs Lab Results Component Value Date/Time WBC 8.5 03/02/2024 0510 HGB 10.2 (L) 03/02/2024 0510 HGB 12.1 03/02/2024 0510 HCT 32.3 (L) 03/02/2024 0510 PLT 406 03/02/2024 0510 NA 137 03/02/2024 0510 K 6.4 (HH) 03/02/2024 05 CL 97 (L) 03/02/2024 0510 CO2 20 (L) 03/02/2024 0510 BUN 58 (H) 03/02/2024 0510 CREATININE 11.21 (H) 03/02/2024 05 CALCIUM 8.8 03/02/2024 0510 PHOS 5.7 (H) 01/25/2024 0003 IV Drips and Rate/Dose Safety - Before each treatment: Dialysis Machine No.: [id number] Machine Number: [id number] Dialyzer Lot No.: [id number] Tubing Lot Number: [id number] All Connections Secure: Yes Venous Parameters Set: Yes Arterial Parameters Set: Yes NS Bag: Yes Saline Line Double Clamped: Yes Dialyzer: Nipro Prime Volume (mL): 200 mL RO Machine Number: [id number] RO Machine Log Sheet Completed: Yes Machine Alarm Self Test: Completed, Passed (03/02/24 1030) Air Foam Detector: Tested, Proper Function, pH Reading Extracorporeal Circuit Tested for Integrity: Yes Machine Conductivity: 13.8 Manual Conductivity: 13.6 Machine Ph: 7 Manual Ph: 7 Bleach Test (Neg): Yes Bath Temperature: 36 C (96.8 F) Conductivity Meter Serial #: [id number] Machine Functioning Alarm Free? Yes Dialysis Bath: K+ (Potassium): 2 Ca+ (Calcium): 2.5 Na+ (Sodium): 137 HCO3 (Bicarb): 35 Chlorine Testing - Before each treatment and every 4 hours: Time On: 1041 Time Off: 1341 Treatment Goal: 2L Weight Height: 162.6 cm (5' 4) (03/02/24955) Weight: 49.3 kg (108 lb 9.6 oz) (03/02/24955) BMI (Calculated): 18.63 (03/02/24955) 1st check: less than 0.1 ppm at: 1015 2nd check: less than 0.1 ppm at: 1315 3rd check: Not Applicable (if greater than 0.1 ppm, then check every 30 minutes from secondary) Access Flows and Pressures Patient Vitals for the past 8 hrs: Blood Flow Rate (mL/min) Ultrafiltration Rate (ml/hr) Arterial Pressure (mmHg) Venous Pressure (mmHg) TMP DFR Access Visible Intra-Hemodialysis Comments 03/02/24 1041 200 mL/min 830 ml/hr -70 mmHg 60 mmHg 100 600 Yes tx started 03/02/24 1045 400 mL/min 830 ml/hr -140 mmHg 130 mmHg 100 600 Yes bfr increased 03/02/24 1100 400 mL/min 830 ml/hr -130 mmHg 140 mmHg 100 600 Yes pt resting 03/02/24 1130 400 mL/min 830 ml/hr -130 mmHg 140 mmHg 100 600 Yes stable 03/02/24 1145 400 mL/min 830 ml/hr -130 mmHg 140 mmHg 100 600 Yes lines secured 03/02/24 1200 400 mL/min 830 ml/hr -130 mmHg 140 mmHg 100 600 Yes 1097 ml off 03/02/24 1215 400 mL/min 830 ml/hr -130 mmHg 140 mmHg 100 600 Yes bicarb change ph 7.0 conduct 13.8 03/02/24 1230 400 mL/min 830 ml/hr -130 mmHg 140 mmHg 100 600 Yes pt resting 03/02/24 1245 400 mL/min 830 ml/hr -130 mmHg 140 mmHg 100 600 Yes stable 03/02/24 1300 400 mL/min 830 ml/hr -130 mmHg 140 mmHg 100 600 Yes lines secured 03/02/24 1315 400 mL/min 830 ml/hr -130 mmHg 140 mmHg 100 600 Yes stable 03/02/24 1341 200 mL/min 830 ml/hr -- -- -- -- Yes tx completed Vital Signs Patient Vitals for the past 24 hrs: BP Temp Temp src Pulse Resp SpO2 Height Weight 03/02/24 1355 (!) 182/84 36.5 C (97.7 F) -- 82 16 96 % -- -- 03/02/24 1341 (!) 172/80 -- -- 89 -- -- -- -- 03/02/24 1315 (!) 170/96 -- -- 90 -- -- -- -- 03/02/24 1300 (!) 184/88 -- -- 87 -- -- -- -- 03/02/24 1245 (!) 171/88 -- -- 82 -- -- -- -- 03/02/24 1230 (!) 171/82 -- -- 88 -- -- -- -- 03/02/24 1215 (!) 170/81 -- -- 85 -- -- -- -- 03/02/24 1200 (!) 176/88 -- -- 80 -- -- -- -- 03/02/24 1145 (!) 166/90 -- -- 84 -- -- -- -- 03/02/24 1130 (!) 169/88 -- -- 83 -- -- -- -- 03/02/24 1100 (!) 191/94 -- -- 84 -- -- -- -- 03/02/24 1045 (!) 188/90 -- -- 88 -- -- -- -- 03/02/24 1041 (!) 203/99 -- -- 87 -- -- -- -- 03/02/24 1030 (!) 190/91 36.4 C (97.5 F) -- 86 16 95 % -- -- 03/02/24 0956 (!) 189/94 36.1 C (97 F) Temporal 90 20 93 % 1.626 m (5' 4) 49.3 kg (108 lb 9.6 oz) 03/02/24 0900 (!) 189/94 (!) 35.9 C (96.7 F) Temporal 90 24 93 % -- 49.3 kg (108 lb 9.6 oz) 03/02/24 0824 (!) 176/85 -- -- 90 18 -- -- -- 03/02/24 0730 (!) 185/92 -- -- 86 20 98 % -- -- 03/02/24 0700 (!) 194/78 -- -- 82 20 99 % -- -- 03/02/24 0600 (!) 200/85 -- -- (!) 113 26 100 % -- -- 03/02/24 0458 -- -- -- -- -- 98 % -- -- 03/02/24 0353 -- -- -- -- -- -- 1.626 m (5' 4) 48.5 kg (107 lb) 03/02/24 0351 (!) 208/97 36.2 C (97.1 F) Temporal 90 16 (!) 88 % -- -- Post-Dialysis Arterial Catheter Locking Solution: Not Applicable Venous Catheter Locking Solution: Not Applicable Post-Treatment Procedures: Blood returned, Access bleeding time < 10 minutes Machine Disinfection Process: Acid/Vinegar Clean, Heat Disinfect, Exterior Machine Disinfection Rinseback Volume (mL): 300 mL Total Liters Processed (L/min): 59.1 L/min Dialyzer Clearance: Moderately streaked Hemodialysis Intake (ml): 500 ml Hemodialysis Output (ml): 2500 ml NET Removed (ml): 2000 ml Tolerated Treatment: Good Patient Response to Treatment: well Physician Notified: No Patient Disposition: Return to room Charge: $ IP Hemodialysis Charge: Hemodialysis Provider Notification Handoff complete and report given to Primary RN at 1357. Primary RN (First Initial, Last Name, Title): Rickie Birmingham RN Education Person Educated: Patient Knowledge Base: Minimal Barriers to Learning?: None Preferred method of Learning: Oral Topic(s): Access Care, Signs and Symptoms of Infection, Procedural, and Treatment Options Teaching Tools: Explanation Response to Education: Verbalized Understanding [facility] 03-02-2024 History and physical note Attending History and Physical Admit Date: 03/02/2024 PCP: Roxie Spain CHIEF COMPLAINT: SOB Reason for Admission: missed HD, HTN urgency, hyperkalemia History Obtained From: patient HISTORY OF PRESENT ILLNESS: Apoorva is a 73 y.o. female with past medical history below who presents with chief complaint listed above. Pt states she missed her last two dialysis sessions as she chose to go to work instead and states since Wednesday, she has had increasingly worsening sob. States last night she was unable to sleep due to her inability to breath so she came to the ED where she was found to be in severe volume overload due to missed HD. She was 88% on RA and placed on 2L O2 and her BP was 208/97. Labs consistent with ESRD and with hyperkalemia of 6.4 for which she was given hyperkalemia cocktail in the ED. Nephrology contacted from the ED to order urgent dialysis and pt admitted for further evaluation and management. Past Medical History: Past Medical History: Diagnosis Date Chronic kidney disease (CKD) Hemodialysis patient (CMS/HCC) (HCC) Wednesday, , Wednesday History of blood transfusion 02/27/2022 Hypertension Seizure ([facility]) Developed seizure-like activity on 02/24 during hospital admission Past Surgical History: Past Surgical History: Procedure Laterality Date AV FISTULA PLACEMENT Left 08/07/2022 COLONOSCOPY N/A 01/25/2024 Performed by Chrissy Gilman MD at [facility] ENDOSCOPY IR CVC TUNNELED DIALYSIS CATHETER PLACEMENT 02/27/2022 IR CVC TUNNELED CATHETER PLACEMENT 02/27/2022 Candis Andrade MD [facility] SPECIAL PROCEDURES IR EMBOLIZATION 01/24/2024 IR EMBOLIZATION 01/24/2024 Jovan Glynn MD [facility] SPECIAL PROCEDURES Social History: Social History Socioeconomic History Marital status: Spouse name: Not on file Number of children: Not on file Years of education: Not on file Highest education level: Not on file Occupational History Not on file Tobacco Use Smoking status: Never Smokeless tobacco: Never Vaping Use Vaping status: Never Used Substance and Sexual Activity Alcohol use: Yes Alcohol/week: 2.0 standard drinks of alcohol Types: 2 Glasses of wine per week Comment: weekly Drug use: Never Sexual activity: Not on file Other Topics Concern Not on file Social History Narrative Not on file Social Drivers of Health Financial Resource Strain: Not on file Food Insecurity: No Food Insecurity (03/02/2024) Hunger Vital Sign Worried About Running Out of Food in the Last Year: Never true Ran Out of Food in the Last Year: Never true Transportation Needs: No Transportation Needs (03/02/2024) PRAPARE - Transportation Lack of Transportation (Medical): No Lack of Transportation (Non-Medical): No Physical Activity: Not on file Stress: Not on file Social Connections: Not on file Intimate Partner Violence: Not At Risk (03/02/2024) Humiliation, Afraid, Rape, and Kick questionnaire Fear of Current or Ex-Partner: No Emotionally Abused: No Physically Abused: No Sexually Abused: No Housing Stability: Low Risk (03/02/2024) Housing Stability Vital Sign Unable to Pay for Housing in the Last Year: No Number of Times Moved in the Last Year: 0 Homeless in the Last Year: No Family History: Family History Problem Relation Name Age of Onset Dementia Mother Stroke Father Breast cancer Cousin Medications Prior to Admission: No current facility-administered medications on file prior to encounter. Current Outpatient Medications on File Prior to Encounter Medication Sig Dispense Refill amLODIPine (Norvasc) 5 MG tablet Take 1 tablet (5 mg) by mouth daily. (Patient taking differently: Take 10 mg by mouth daily.) 30 tablet 11 ASTRAGALUS PO Take 1 mL by mouth 3 times daily. atorvastatin (Lipitor) 40 MG tablet Take 1 tablet (40 mg) by mouth Nightly. 30 tablet 11 calcium acetate (Phoslo) 667 MG tablet Take 1 tablet by mouth in the morning and 1 tablet at noon and 1 tablet in the evening. Take with meals. cholecalciferol (Vitamin D-3) 125 MCG (5000 UT) capsule Take 5,000 Units by mouth daily. levETIRAcetam (Keppra) 500 MG tablet Take 1 tablet (500 mg) by mouth daily. 30 tablet 1 NON FORMULARY Take 1 mL by mouth 3 times daily. Kidney tonic NON FORMULARY Take 1 capsule by mouth daily. Sea Fair omega-3 (Fish Oil) 1000 MG capsule Take 1,000 mg by mouth daily. Thiamine HCl (vitamin B-1) 250 MG tablet Take 250 mg by mouth daily. Allergies: No Known Allergies REVIEW OF SYSTEMS: 12 point ROS negative unless otherwise stated in the H&P Vitals: BP (!) 191/94 Pulse 84 Temp 36.4 C (97.5 F) Resp 16 Ht 5' 4 (1.626 m) Wt 108 lb 9.6 oz (49.3 kg) SpO2 95% BMI 18.64 kg/m BMI Classification: Normal Weight (BMI 18.5-24.9) Pulse Ox: SpO2 Av.5 % Min: 88 % Max: 100 % Supplemental O2: O2 Flow Rate (L/min): 2 L/min PHYSICAL EXAM: GENERAL: Lying in bed comfortably, awake and alert HEENT: normocephalic, non-traumatic, MMM NECK: supple, trachea midline HEART: RRR, normal S1 and S2 LUNGS: good breath sounds bilaterally, no wheeze, minimal crackles ABD: soft, non-tender, no rebound, no guarding, +BS MSK: no edema noted SKIN: warm, dry PSYCH: appropriate affect DATA: CBC: Recent Labs 03/02/24 0510 WBC 8.5 RBC 3.33* HGB 12.1 10.2* HCT 32.3* MCV 97.0 RDW 16.6* PLT 406 BMP: Recent Labs 03/02/24 0510 NA 137 K 6.4* CL 97* CO2 20* BUN 58* CREATININE 11.21* GLUCOSE 110* CALCIUM 8.8 ANIONGAP 20* LIVER PROFILE:No results for input(s): AST, ALT, BILITOT, ALKPHOS, PROT in the last 72 hours. No lab exists for component: LABALBU PT/INR: No results for input(s): PROTIME, INR in the last 72 hours. CARDIAC ENZYMES: Recent Labs 03/02/24 0510 03/02/24 0820 TROPONINI 0.028 0.029 Procalcitonin: No results found for: PROCAL Urine Culture: No results found for this or any previous visit. COVID-19 PCR: No results for input(s): COVID19 in the last 72 hours. I reviewed: [x] laboratory results [x] radiographic results At the time of today's encounter. Pt was advised of the results. Data: Assessment Discussed management with the ED provider and agree with hospitalization. Acute, acute on chronic, unstable/uncontrolled chronic problems/diagnoses: Volume overload due to ESRD and missed HD x2- CXR with mod/severe volume overload, BNP 26k Respiratory insufficiency- 88% on RA. Placed on 2L. Wean as tolerated Hypertensive urgency- BP 208/97 Hyperkalemia Stable chronic problems affecting care, new non-acute diagnoses: ESRD on HD TTS HTN Seizures Plan As a result of the above findings & factors, the following mgmt was pursued: - Urgent dialysis upon admission. Nephrology consulted - given hyperkalemia cocktail in the ED. Anticipate improvement with HD - monitor BP with dialysis. Cont home regimen - cont meds as ordered - stressed compliance with dialysis - am labs, replace lytes prn - PT/OT/CM/SW - delirium precautions: increase activity and limit nighttime disturbances - DVT prophylaxis: heparin and encourage ambulation Advance Directive: Full Code Anticipated Discharge - Date - 03/03 - Location - Home - Pending the following - dialysis today and possibly again tomorrow, nephrology recs, improvement in symptoms, labs and BP 55 minutes spent in chart review, lab and radiology interpretation, patient eval, counseling and treatment plan. Toxic drug monitoring/narrow therapeutic index drug monitoring : # Drug name : heparin # Route administered : SQ # Method of monitoring : monitor for bleeding Extended Emergency Contact Information Primary Emergency Contact: Mayur Matthews Mobile Relation: Grandchild Secondary Emergency Contact: Edward Ruggiero Mobile Relation: Significant Other Preferred language: Cambodian Technical Coordinator needed? No [employer] Apoorva Gonzalez : 1950 Primary Care Physician: Roxie Spain The patient and/or family/surrogate voluntarily agreed to participate in ACP services. Patient s cognitive capacity: AAOx3 Code Status: [X] [FULL CODE - Continue all advanced life support: CPR,intubation,invasive procedures] [_] [DNR-CCA - DO NOT do CPR, intubation] [_] [DNR-CDL SERVICE TECHNICIAN - Comfort care only] [_] DNR form [was/was not] signed Total time spent: 5 minutes were spent discussing the patient's resuscitation status, advance care planning, and end of life care, with patient and/or family/surrogate. John Mayes DO Division of Hospitalist Medicine [employer] [facility] History and physical note Attending History and Physical Admit Date: 03/02/2024 PCP: Roxie Spain CHIEF COMPLAINT: SOB Reason for Admission: missed HD, HTN urgency, hyperkalemia History Obtained From: patient HISTORY OF PRESENT ILLNESS: Apoorva is a 73 y.o. female with past medical history below who presents with chief complaint listed above. Pt states she missed her last two dialysis sessions as she chose to go to work instead and states since Wednesday, she has had increasingly worsening sob. States last night she was unable to sleep due to her inability to breath so she came to the ED where she was found to be in severe volume overload due to missed HD. She was 88% on RA and placed on 2L O2 and her BP was 208/97. Labs consistent with ESRD and with hyperkalemia of 6.4 for which she was given hyperkalemia cocktail in the ED. Nephrology contacted from the ED to order urgent dialysis and pt admitted for further evaluation and management. Past Medical History: Past Medical History: Diagnosis Date Chronic kidney disease (CKD) Hemodialysis patient (CMS/HCC) (HCC) Wednesday, , Wednesday History of blood transfusion 02/27/2022 Hypertension Seizure (HCC) Developed seizure-like activity on 02/24 during hospital admission Past Surgical History: Past Surgical History: Procedure Laterality Date AV FISTULA PLACEMENT Left 08/07/2022 COLONOSCOPY N/A 01/25/2024 Performed by Chrissy Gilman MD at [facility] ENDOSCOPY IR CVC TUNNELED DIALYSIS CATHETER PLACEMENT 02/27/2022 IR CVC TUNNELED CATHETER PLACEMENT 02/27/2022 Candis Andrade MD [facility] SPECIAL PROCEDURES IR EMBOLIZATION 01/24/2024 IR EMBOLIZATION 01/24/2024 Jovan Glynn MD [facility] SPECIAL PROCEDURES Social History: Social History Socioeconomic History Marital status: Spouse name: Not on file Number of children: Not on file Years of education: Not on file Highest education level: Not on file Occupational History Not on file Tobacco Use Smoking status: Never Smokeless tobacco: Never Vaping Use Vaping status: Never Used Substance and Sexual Activity Alcohol use: Yes Alcohol/week: 2.0 standard drinks of alcohol Types: 2 Glasses of wine per week Comment: weekly Drug use: Never Sexual activity: Not on file Other Topics Concern Not on file Social History Narrative Not on file Social Drivers of Health Financial Resource Strain: Not on file Food Insecurity: No Food Insecurity (03/02/2024) Hunger Vital Sign Worried About Running Out of Food in the Last Year: Never true Ran Out of Food in the Last Year: Never true Transportation Needs: No Transportation Needs (03/02/2024) PRAPARE - Transportation Lack of Transportation (Medical): No Lack of Transportation (Non-Medical): No Physical Activity: Not on file Stress: Not on file Social Connections: Not on file Intimate Partner Violence: Not At Risk (03/02/2024) Humiliation, Afraid, Rape, and Kick questionnaire Fear of Current or Ex-Partner: No Emotionally Abused: No Physically Abused: No Sexually Abused: No Housing Stability: Low Risk (03/02/2024) Housing Stability Vital Sign Unable to Pay for Housing in the Last Year: No Number of Times Moved in the Last Year: 0 Homeless in the Last Year: No Family History: Family History Problem Relation Name Age of Onset Dementia Mother Stroke Father Breast cancer Cousin Medications Prior to Admission: No current facility-administered medications on file prior to encounter. Current Outpatient Medications on File Prior to Encounter Medication Sig Dispense Refill amLODIPine (Norvasc) 5 MG tablet Take 1 tablet (5 mg) by mouth daily. (Patient taking differently: Take 10 mg by mouth daily.) 30 tablet 11 ASTRAGALUS PO Take 1 mL by mouth 3 times daily. atorvastatin (Lipitor) 40 MG tablet Take 1 tablet (40 mg) by mouth Nightly. 30 tablet 11 calcium acetate (Phoslo) 667 MG tablet Take 1 tablet by mouth in the morning and 1 tablet at noon and 1 tablet in the evening. Take with meals. cholecalciferol (Vitamin D-3) 125 MCG (5000 UT) capsule Take 5,000 Units by mouth daily. levETIRAcetam (Keppra) 500 MG tablet Take 1 tablet (500 mg) by mouth daily. 30 tablet 1 NON FORMULARY Take 1 mL by mouth 3 times daily. Kidney tonic NON FORMULARY Take 1 capsule by mouth daily. [place] omega-3 (Fish Oil) 1000 MG capsule Take 1,000 mg by mouth daily. Thiamine HCl (vitamin B-1) 250 MG tablet Take 250 mg by mouth daily. Allergies: No Known Allergies REVIEW OF SYSTEMS: 12 point ROS negative unless otherwise stated in the H&P Vitals: BP (!) 191/94 Pulse 84 Temp 36.4 C (97.5 F) Resp 16 Ht 5' 4 (1.626 m) Wt 108 lb 9.6 oz (49.3 kg) SpO2 95% BMI 18.64 kg/m BMI Classification: Normal Weight (BMI 18.5-24.9) Pulse Ox: SpO2 Av.5 % Min: 88 % Max: 100 % Supplemental O2: O2 Flow Rate (L/min): 2 L/min PHYSICAL EXAM: GENERAL: Lying in bed comfortably, awake and alert HEENT: normocephalic, non-traumatic, MMM NECK: supple, trachea midline HEART: RRR, normal S1 and S2 LUNGS: good breath sounds bilaterally, no wheeze, minimal crackles ABD: soft, non-tender, no rebound, no guarding, +BS MSK: no edema noted SKIN: warm, dry PSYCH: appropriate affect DATA: CBC: Recent Labs 03/02/24 0510 WBC 8.5 RBC 3.33* HGB 12.1 10.2* HCT 32.3* MCV 97.0 RDW 16.6* PLT 406 BMP: Recent Labs 03/02/24 0510 NA 137 K 6.4* CL 97* CO2 20* BUN 58* CREATININE 11.21* GLUCOSE 110* CALCIUM 8.8 ANIONGAP 20* LIVER PROFILE:No results for input(s): AST, ALT, BILITOT, ALKPHOS, PROT in the last 72 hours. No lab exists for component: LABALBU PT/INR: No results for input(s): PROTIME, INR in the last 72 hours. CARDIAC ENZYMES: Recent Labs 03/02/24 0510 03/02/24 0820 TROPONINI 0.028 0.029 Procalcitonin: No results found for: PROCAL Urine Culture: No results found for this or any previous visit. COVID-19 PCR: No results for input(s): COVID19 in the last 72 hours. I reviewed: [x] laboratory results [x] radiographic results At the time of today's encounter. Pt was advised of the results. Data: Assessment Discussed management with the ED provider and agree with hospitalization. Acute, acute on chronic, unstable/uncontrolled chronic problems/diagnoses: Volume overload due to ESRD and missed HD x2- CXR with mod/severe volume overload, BNP 26k Respiratory insufficiency- 88% on RA. Placed on 2L. Wean as tolerated Hypertensive urgency- BP 208/97 Hyperkalemia Stable chronic problems affecting care, new non-acute diagnoses: ESRD on HD TTS HTN Seizures Plan As a result of the above findings & factors, the following mgmt was pursued: - Urgent dialysis upon admission. Nephrology consulted - given hyperkalemia cocktail in the ED. Anticipate improvement with HD - monitor BP with dialysis. Cont home regimen - cont meds as ordered - stressed compliance with dialysis - am labs, replace lytes prn - PT/OT/CM/SW - delirium precautions: increase activity and limit nighttime disturbances - DVT prophylaxis: heparin and encourage ambulation Advance Directive: Full Code Anticipated Discharge - Date - 03/03 - Location - Home - Pending the following - dialysis today and possibly again tomorrow, nephrology recs, improvement in symptoms, labs and BP 55 minutes spent in chart review, lab and radiology interpretation, patient eval, counseling and treatment plan. Toxic drug monitoring/narrow therapeutic index drug monitoring : # Drug name : heparin # Route administered : SQ # Method of monitoring : monitor for bleeding Extended Emergency Contact Information Primary Emergency Contact: CassieMayur Mobile Relation: Grandchild Secondary Emergency Contact: Edward Ruggiero Mobile Relation: Significant Other Preferred language: Cambodian Technical Coordinator needed? No [employer] Apoorva Navarro Rajinder : 1950 Primary Care Physician: Roxie Spain The patient and/or family/surrogate voluntarily agreed to participate in ACP services. Patient s cognitive capacity: AAOx3 Code Status: [X] [FULL CODE - Continue all advanced life support: CPR,intubation,invasive procedures] [_] [DNR-CCA - DO NOT do CPR, intubation] [_] [DNR-CDL SERVICE TECHNICIAN - Comfort care only] [_] DNR form [was/was not] signed Total time spent: 5 minutes were spent discussing the patient's resuscitation status, advance care planning, and end of life care, with patient and/or family/surrogate. John Mayes DO Division of Hospitalist Medicine [facility] documented in this encounter [facility] 03-02-2024 Plan of care note Problem: Pain - Adult Goal: Verbalizes/displays adequate comfort level or baseline comfort level Outcome: Progressing Problem: Safety - Adult Goal: Free from fall injury Outcome: Progressing Problem: Discharge Planning Goal: Discharge to home or other facility with appropriate resources Outcome: Progressing Problem: Chronic Conditions and Co-morbidities Goal: Patient's chronic conditions and co-morbidity symptoms are monitored and maintained or improved Outcome: Progressing [facility] 03-02-2024 Emergency department Note Pt in for transport to the floor. Orders states she can come off tele for transport. [facility] 03-02-2024 Emergency department Note Pt in for transport to the floor. Orders states she can come off tele for transport. Pt BGT was 57. Pt AxOx4. Oral glucose given Report from CYNTHIA Jim Pt 88% on RA in triage. Placed on 2L per [place] Emergency Department Encounter [facility] EMERGENCY DEPT Patient: Apoorva Gonzalez : 1950 Date of Evaluation: 03/02/2024 ED Supervising Physician: Marcus Ragland DO I personally saw Apoorva Gonzalez and made/approved the management plan and take responsibility for the patient management. This will serve as my Supervisory note and shared attestation. I did perform a substantive portion of the visit including all aspects of the Medical Decision Making. I wore appropriate PPE for the entirety of this encounter. In brief, Apoorva Gonzalez is a 73 y.o. that presents to the emergency department shortness of breath and orthopnea after missing dialysis session on Wednesday. Patient states she missed dialysis because she chose to go to work rather than go to dialysis. Is normally a Wednesday patient. Did get dialyzed on Wednesday. Denies any chest pain. Patient was saturating 88% on arrival, shortness of breath is now resolved on 2 L nasal cannula saturating 99%. No fevers or chills. No abdominal pain nausea or vomiting. Focused exam: Alert and oriented 4, no acute distress, nontoxic appearing, Pulm: Crackles in bilateral bases, cardiac: regular rate and rhythm, Abdomen: soft nontender, Neuro: no focal motor or sensory deficits. Brief ED course/MDM: Patient presents with shortness of breath and orthopnea, states she could not sleep tonight due to her shortness of breath. Arrived saturating 88% on room air. Patient was slightly tachypneic and tachycardic, crackles in the lung bases, missed her dialysis session on Wednesday. Potassium is 6.4 today. Patient will be given insulin dextrose and calcium gluconate. Patient has alkalemia with a pH of 7.437. BNP 26,000. Normal troponin. Hemoglobin 10.2 and improved from baseline. Chest x-ray shows volume overload. As the patient missed her dialysis, is volume overloaded with hyperkalemia, resident spoke with nephrology who plans for emergent dialysis. Will admit the patient medically for dialysis and continued workup. Critical care time 35 minutes Diagnostics interpreted by me: EKG(s) no acute ischemic changes Xray(s) basilar infiltrates and effusions with pulmonary vascular congestion with moderate to severe congestive heart failure/fluid overload I personally discussed the patient's management with other clinicians: none All diagnostic, treatment, and disposition decisions were made by myself in conjunction with the resident. I also supervised saavedra portions of any procedures performed by the Resident. For all further details of the patient's emergency department visit, please see their documentation. (Comment: Please note this report has been produced using speech recognition software and may contain errors related to that system including errors in grammar, punctuation, and spelling, as well as words and phrases that may be inappropriate. If there are any questions or concerns please feel free to contact the dictating provider for clarification.) Marcus Ragland DO [employer] Marcus Ragland DO 03/02/24 0645 EMERGENCY DEPARTMENT ENCOUNTER Pt Name: Apoorva Gonzalez Birthdate 1950 Date of evaluation: 03/02/2024 ED Provider: Jacob Laguna DO CHIEF COMPLAINT Chief Complaint Patient presents with Shortness of Breath Patient presents to ED via triage with SOB. Patient states she's missed a couple dialysis tx. HISTORY OF PRESENT ILLNESS (Location/Symptom, Timing/Onset, Context/Setting, Quality, Duration, Modifying Factors, Severity) Note limiting factors. I wore appropriate PPE for the entirety of this encounter. HPI Apoorva Gonzalez is a 73 y.o. who presents to the emergency department for concerns of shortness of breath. The patient states that over approximately the past day she has been increasingly short of breath to the point where she feels she cannot speak in full sentences, the patient has ESRD and is on dialysis on Tuesdays and Saturdays, she states that she missed her last appointment for dialysis. The patient denies chest pain, nausea, vomiting, or lightheadedness. Initial oxygen saturations in the high 80s upon arrival, the patient was placed on 2LN/C in the ED, oxygen saturations improved to mid to high 90s with some resolution in her dyspnea. The patient denies a known history of CHF, review of the patient's chart showed that her last echo was in 2021 which showed grossly normal findings, she denies leg swelling. Nursing Notes were reviewed. Limitations to history: None Outside historians: None REVIEW OF SYSTEMS Review of Systems Pertinent positives and negatives as per HPI. PAST MEDICAL HISTORY Past Medical History: Diagnosis Date Chronic kidney disease (CKD) Hemodialysis patient (CMS/HCC) (HCC) Wednesday, , Wednesday History of blood transfusion 02/27/2022 Hypertension Seizure ([facility]) Developed seizure-like activity on 02/24 during hospital admission SURGICAL HISTORY Past Surgical History: Procedure Laterality Date AV FISTULA PLACEMENT Left 08/07/2022 COLONOSCOPY N/A 01/25/2024 Performed by Chrissy Gilman MD at [facility] ENDOSCOPY IR CVC TUNNELED DIALYSIS CATHETER PLACEMENT 02/27/2022 IR CVC TUNNELED CATHETER PLACEMENT 02/27/2022 Candis Andrade MD [facility] SPECIAL PROCEDURES IR EMBOLIZATION 01/24/2024 IR EMBOLIZATION 01/24/2024 Jovan Glynn MD [facility] SPECIAL PROCEDURES CURRENT MEDICATIONS Current Discharge Medication List CONTINUE these medications which have NOT CHANGED Details amLODIPine (Norvasc) 5 MG tablet Take 1 tablet (5 mg) by mouth daily. Qty: 30 tablet, Refills: 11 ASTRAGALUS PO Take 1 mL by mouth 3 times daily. atorvastatin (Lipitor) 40 MG tablet Take 1 tablet (40 mg) by mouth Nightly. Qty: 30 tablet, Refills: 11 calcium acetate (Phoslo) 667 MG tablet Take 1 tablet by mouth in the morning and 1 tablet at noon and 1 tablet in the evening. Take with meals. cholecalciferol (Vitamin D-3) 125 MCG (5000 UT) capsule Take 5,000 Units by mouth daily. levETIRAcetam (Keppra) 500 MG tablet Take 1 tablet (500 mg) by mouth daily. Qty: 30 tablet, Refills: 1 !! NON FORMULARY Take 1 mL by mouth 3 times daily. Kidney tonic !! NON FORMULARY Take 1 capsule by mouth daily. [place] omega-3 (Fish Oil) 1000 MG capsule Take 1,000 mg by mouth daily. Thiamine HCl (vitamin B-1) 250 MG tablet Take 250 mg by mouth daily. !! - Potential duplicate medications found. Please discuss with provider. ALLERGIES Patient has no known allergies. FAMILY HISTORY Family History Problem Relation Name Age of Onset Dementia Mother Stroke Father Breast cancer Cousin SOCIAL HISTORY Social History Socioeconomic History Marital status: Tobacco Use Smoking status: Never Smokeless tobacco: Never Vaping Use Vaping status: Never Used Substance and Sexual Activity Alcohol use: Yes Alcohol/week: 2.0 standard drinks of alcohol Types: 2 Glasses of wine per week Comment: weekly Drug use: Never Social Drivers of Health Food Insecurity: No Food Insecurity (03/02/2024) Hunger Vital Sign Worried About Running Out of Food in the Last Year: Never true Ran Out of Food in the Last Year: Never true Transportation Needs: No Transportation Needs (03/02/2024) PRAPARE - Transportation Lack of Transportation (Medical): No Lack of Transportation (Non-Medical): No Intimate Partner Violence: Not At Risk (03/02/2024) Humiliation, Afraid, Rape, and Kick questionnaire Fear of Current or Ex-Partner: No Emotionally Abused: No Physically Abused: No Sexually Abused: No Housing Stability: Low Risk (03/02/2024) Housing Stability Vital Sign Unable to Pay for Housing in the Last Year: No Number of Times Moved in the Last Year: 0 Homeless in the Last Year: No SCREENINGS PHYSICAL EXAM ED Triage Vitals Temp Heart Rate Resp BP 03/02/24 0351 03/02/24 0351 03/02/24 03503/02/24 035 36.2 C (97.1 F) 90 16 (!) 208/97 SpO2 Temp Source Heart Rate Source Patient Position 03/02/24 0351 03/02/24 0351 03/02/24 03503/02/24 0900 (!) 88 % Temporal Monitor Lying BP Location FiO2 (%) 03/02/24 0824 -- Right arm Physical Exam Constitutional: Appearance: She is well-developed. Comments: Appears uncomfortable HENT: Head: Normocephalic and atraumatic. Mouth/Throat: Mouth: Mucous membranes are moist. Pharynx: Oropharynx is clear. Eyes: Extraocular Movements: Extraocular movements intact. Pupils: Pupils are equal, round, and reactive to light. Cardiovascular: Rate and Rhythm: Normal rate. Heart sounds: No murmur heard. No friction rub. No gallop. Pulmonary: Effort: Tachypnea present. No accessory muscle usage. Breath sounds: Examination of the right-upper field reveals rales. Examination of the left-upper field reveals rales. Examination of the right-middle field reveals rales. Examination of the left-middle field reveals rales. Examination of the right-lower field reveals rales. Examination of the left-lower field reveals rales. Rales present. No decreased breath sounds, wheezing or rhonchi. Abdominal: General: Bowel sounds are normal. Palpations: Abdomen is soft. Tenderness: There is no abdominal tenderness. There is no guarding or rebound. Musculoskeletal: Right lower leg: No edema. Left lower leg: No edema. Skin: General: Skin is warm and dry. Capillary Refill: Capillary refill takes less than 2 seconds. Neurological: General: No focal deficit present. Mental Status: She is alert and oriented to person, place, and time. DIAGNOSTIC RESULTS RADIOLOGY (Per Emergency Physician): Chest x-ray: Bilateral interstitial prominence, no focal infiltrate Interpretation per the Radiologist below, if available at the time of this note: XR chest 1 view Final Result 1. Worsening bibasilar infiltrates and effusions. 2. Prominence of the central pulmonary vasculature consistent with moderate to severe congestive heart failure/fluid overload. Report Dictated on Electronically Signed By: Honorio Henson MD Electronically Signed Date/Time: 03/02/2024 4:43 AM EST Laboratory analysis: Hyperkalemia seen on basic metabolic panel 6.4, consistent with ESRD and missed dialysis; troponin in the normal range at 0.028; NT proBNP is elevated 26,175, consistent with fluid close review review shows alkalosis with pH 7.437, consistent with tachypnea and supplemental oxygen sampling; CBC auto differential displays anemia with hemoglobin 10.2 and hematocrit 32.3, improved from prior values LABS: Labs Reviewed BASIC METABOLIC PANEL - Abnormal Result Value SODIUM 137 POTASSIUM 6.4 (*) CHLORIDE 97 (*) CARBON DIOXIDE 20 (*) UREA NITROGEN 58 (*) CREATININE 11.21 (*) GLUCOSE 110 (*) CALCIUM 8.8 ANION GAP 20 (*) eGFR 3.3 (*) CBC WITH AUTO DIFFERENTIAL - Abnormal Auto WBC 8.5 RBC 3.33 (*) Hemoglobin 10.2 (*) Hematocrit 32.3 (*) MCV 97.0 MCH 30.6 MCHC 31.6 RDW 16.6 (*) Platelets 406 MPV 10.3 nRBC 0.0 Neutrophils Relative 76.6 Lymphocytes Relative 14.4 (*) Monocytes Relative 5.4 Eosinophils Relative 2.1 Basophils Relative 1.1 Immature Grans % 0.4 Neutrophils Absolute 6.5 Lymphocytes Absolute 1.2 Monocytes Absolute 0.5 Eosinophils Absolute 0.2 Basophils Absolute 0.1 Immature Grans Absolute 0.0 NT PRO BNP - Abnormal NT PRO BNP 26,175 (*) BLOOD GAS, VENOUS - Abnormal pH, Venous 7.437 (*) pCO2, Venous 36.0 (*) pO2, Venous 45.7 HCO3, Venous 23.7 O2 Sat, Venous 73.5 Base Excess, Venous -0.1 Hgb, blood gas 12.1 TCO2, Venous 24.8 Source Of Oxygen 2L Narrative: Assessment of oxygenation is best done with an arterial blood gas determination. Reference ranges for pO2, bicarbonate, and base excess are for mixed venous blood. Specimens drawn from a peripheral vein will often have higher values. POCT GLUCOSE METER UNSOLICITED RESULTS - Abnormal Glucose 239 (*) Narrative: Performed by: [facility], [address] [place] [id number] CLIA ID: [id number] POCT GLUCOSE METER UNSOLICITED RESULTS - Abnormal Glucose 57 (*) Narrative: Performed by: [facility], [address] [place] [id number] CLIA ID: [id number] TROPONIN, WITH SERIAL REFLEX - Normal TROPONIN I 0.028 Narrative: Patients with high levels of Biotin oral intake (ie >5 mg/day) may have falsely decreased Troponin levels. TROPONIN I - Normal TROPONIN I 0.029 Narrative: Patients with high levels of Biotin oral intake (ie >5 mg/day) may have falsely decreased Troponin levels. TROPONIN I - Normal TROPONIN I 0.029 Narrative: Patients with high levels of Biotin oral intake (ie >5 mg/day) may have falsely decreased Troponin levels. POCT GLUCOSE METER UNSOLICITED RESULTS - Normal Glucose 88 Narrative: Performed by: [facility], [address] [place] [id number] CLIA ID: [id number] POCT GLUCOSE METER UNSOLICITED RESULTS - Normal Glucose 88 Narrative: Performed by: [facility], [address] [place] [id number] CLIA ID: [id number] POCT GLUCOSE METER POCT GLUCOSE METER POCT GLUCOSE METER POCT GLUCOSE METER POCT GLUCOSE METER POCT GLUCOSE METER POCT GLUCOSE METER EKG: Sinus rhythm, rate 86, normal axis, UT interval 123, QTc 483, no ST segment elevations or depressions, no evidence of acute ischemia Encounter Date: 03/02/24 ECG 12 lead Result Value Heart Rate 86 QRSD Interval 96 QT Interval 404 QTC Interval 483 P [place] 58 QRS Ionia 0 T Wave Ionia 51 UT Interval 123 Impression Sinus rhythm Probable left atrial enlargement Normal axis Electronically Signed On 03-02-2024 07:16:24 EST by Marcus Gombash All other labs were within normal range or not returned as of this dictation. EMERGENCY DEPARTMENT COURSE and DIFFERENTIAL DIAGNOSIS/MDM: Vitals: Vitals: 03/02/24 1041 03/02/24 1045 03/02/24 1100 03/02/24 1130 BP: (!) 203/99 (!) 188/90 (!) 191/94 (!) 169/88 BP Location: Patient Position: Pulse: 87 88 84 83 Resp: Temp: TempSrc: SpO2: Weight: Height: The patient presented with a chief complaint of shortness of breath in the setting of missed dialysis. The differential diagnosis associated with this patient's presentation includes acute pulmonary edema secondary to renal failure, CHF, ACS, electrolyte disturbance, symptomatic anemia, pneumonia. Our workup consisted of ordering/reviewing EKG, chest x-ray, troponin, NT proBNP, CBC, BMP, VBG. The patient's chest x-ray does not display focality of infiltrates appreciated bilaterally, making pneumonia less likely, she is also afebrile and nontoxic-appearing; the patient does not have lower extremity edema suggestive of CHF and I do believe her Rales on exam are more likely secondary to ESRD, making CHF less likely; ACS is less likely in this patient as her EKG is not acutely ischemic and her troponin is within normal range; symptomatic anemia is less likely in this patient as her hemoglobin hematocrit are improved from prior values; electrolyte disturbance is less likely in this patient as her electrolytes are grossly normal range on BMP; the patient is saturating well on supplemental oxygen via nasal cannula and as such she is not requiring NIV at this time, nephrology was consulted regarding the patient who recommended that the patient be admitted following dialysis treatment, the patient's hyperkalemia was temporized with calcium gluconate and insulin and dextrose, on-call hospitalist was followed regarding a medical admission following the patient's dialysis treatment, patient is agreement with the plan for admission following dialysis. Diagnoses as of 03/02/24 1150 Shortness of breath Acute pulmonary edema (HCC) Hyperkalemia External records reviewed: ED notes 08/09/2023-hyperkalemia; ED notes 02/21/2023-ESRD on hemodialysis; ED notes 02/12/2024-hypertension Diagnostics interpreted by me: EKG, chest x-ray, laboratory studies Discussions with other clinicians: Attending physician Chronic conditions impacting care: ESRD Social determinants of health affecting care: none ED Medications managed: Medications glucose oral gel 15 g (15 g Oral Given 03/02/24 0824) dextrose 50 % solution 12.5 g (has no administration in time range) glucagon (human recombinant) injection 1 mg (has no administration in time range) dextrose 5 % infusion (has no administration in time range) acetaminophen (Tylenol) tablet 650 mg (has no administration in time range) Or acetaminophen (Tylenol) suppository 650 mg (has no administration in time range) ondansetron ODT (Zofran-ODT) disintegrating tablet 4 mg (has no administration in time range) Or ondansetron (Zofran) injection 4 mg (has no administration in time range) polyethylene glycol (PEG) 3350 (Miralax) packet 17 g (has no administration in time range) influenza vaccine A&B surf ant adjuvanted (Fluad) HIGH-DOSE injection 0.5 mL (has no administration in time range) heparin injection 5,000 Units (has no administration in time range) amLODIPine (Norvasc) tablet 10 mg (has no administration in time range) atorvastatin (Lipitor) tablet 40 mg (has no administration in time range) calcium acetate (Phoslo) capsule 667 mg (667 mg Oral Given 03/02/24 0815) levETIRAcetam (Keppra) tablet 500 mg (has no administration in time range) hydrALAZINE (Apresoline) injection 10 mg (has no administration in time range) melatonin tablet 5 mg (has no administration in time range) insulin regular (HumuLIN R,NovoLIN R) injection 10 Units (10 Units IntraVENous Given 03/02/24 0701) And dextrose 50 % solution 25 g (25 g IntraVENous Given 03/02/24 0702) calcium gluconate 10 % injection 1,000 mg (1,000 mg IntraVENous Given 03/02/24 0700) Prescription drugs considered: Insulin, dextrose, calcium gluconate PROCEDURES: Unless otherwise noted below, none Procedures FINAL IMPRESSION 1. Shortness of breath 2. Acute pulmonary edema (HCC) 3. Hyperkalemia DISPOSITION Admit 03/02/2024 07:56:41 AM PATIENT REFERRED TO: No follow-up provider specified. DISCHARGE MEDICATIONS: Current Discharge Medication List (Comment: Please note this report has been produced using speech recognition software and may contain errors related to that system including errors in grammar, punctuation, and spelling, as well as words and phrases that may be inappropriate. If there are any questions or concerns please feel free to contact the dictating provider for clarification.) Jacob Laguna DO (electronically signed) Emergency Medicine Provider Jacob Laguna DO Resident 03/02/24 1206 Cosigned by Marcus Ragland DO at 03/02/2024 4:24 PM EST documented in this encounter [facility] 03-02-2024 Emergency department Note Pt BGT was 57. Pt AxOx4. Oral glucose given [facility] 03-02-2024 Emergency department Note Report from CYNTHIA Jim [facility] 03-02-2024 Emergency department Note Pt 88% on RA in triage. Placed on 2L per [place] [facility] 03-02-2024 Physician Emergency department Note Emergency Department Encounter [facility] EMERGENCY DEPT Patient: Apoorva Gonzalez : 1950 Date of Evaluation: 03/02/2024 ED Supervising Physician: Marcus Ragland DO I personally saw Apoorva Gonzalez and made/approved the management plan and take responsibility for the patient management. This will serve as my Supervisory note and shared attestation. I did perform a substantive portion of the visit including all aspects of the Medical Decision Making. I wore appropriate PPE for the entirety of this encounter. In brief, Apoorva Gonzalez is a 73 y.o. that presents to the emergency department shortness of breath and orthopnea after missing dialysis session on Wednesday. Patient states she missed dialysis because she chose to go to work rather than go to dialysis. Is normally a Wednesday patient. Did get dialyzed on Wednesday. Denies any chest pain. Patient was saturating 88% on arrival, shortness of breath is now resolved on 2 L nasal cannula saturating 99%. No fevers or chills. No abdominal pain nausea or vomiting. Focused exam: Alert and oriented 4, no acute distress, nontoxic appearing, Pulm: Crackles in bilateral bases, cardiac: regular rate and rhythm, Abdomen: soft nontender, Neuro: no focal motor or sensory deficits. Brief ED course/MDM: Patient presents with shortness of breath and orthopnea, states she could not sleep tonight due to her shortness of breath. Arrived saturating 88% on room air. Patient was slightly tachypneic and tachycardic, crackles in the lung bases, missed her dialysis session on Wednesday. Potassium is 6.4 today. Patient will be given insulin dextrose and calcium gluconate. Patient has alkalemia with a pH of 7.437. BNP 26,000. Normal troponin. Hemoglobin 10.2 and improved from baseline. Chest x-ray shows volume overload. As the patient missed her dialysis, is volume overloaded with hyperkalemia, resident spoke with nephrology who plans for emergent dialysis. Will admit the patient medically for dialysis and continued workup. Critical care time 35 minutes Diagnostics interpreted by me: EKG(s) no acute ischemic changes Xray(s) basilar infiltrates and effusions with pulmonary vascular congestion with moderate to severe congestive heart failure/fluid overload I personally discussed the patient's management with other clinicians: none All diagnostic, treatment, and disposition decisions were made by myself in conjunction with the resident. I also supervised saavedra portions of any procedures performed by the Resident. For all further details of the patient's emergency department visit, please see their documentation. (Comment: Please note this report has been produced using speech recognition software and may contain errors related to that system including errors in grammar, punctuation, and spelling, as well as words and phrases that may be inappropriate. If there are any questions or concerns please feel free to contact the dictating provider for clarification.) Marcus Ragland DO [employer] Marcus Ragland DO 03/02/24 0645 [employer] Phone: 03-02-2024 Physician Emergency department Note EMERGENCY DEPARTMENT ENCOUNTER Pt Name: Apoorva Gonzalez Birthdate 1950 Date of evaluation: 03/02/2024 ED Provider: Jacob Laguna DO CHIEF COMPLAINT Chief Complaint Patient presents with Shortness of Breath Patient presents to ED via triage with SOB. Patient states she's missed a couple dialysis tx. HISTORY OF PRESENT ILLNESS (Location/Symptom, Timing/Onset, Context/Setting, Quality, Duration, Modifying Factors, Severity) Note limiting factors. I wore appropriate PPE for the entirety of this encounter. HPI Apoorva Gonzalez is a 73 y.o. who presents to the emergency department for concerns of shortness of breath. The patient states that over approximately the past day she has been increasingly short of breath to the point where she feels she cannot speak in full sentences, the patient has ESRD and is on dialysis on Tuesdays and Saturdays, she states that she missed her last appointment for dialysis. The patient denies chest pain, nausea, vomiting, or lightheadedness. Initial oxygen saturations in the high 80s upon arrival, the patient was placed on 2LN/C in the ED, oxygen saturations improved to mid to high 90s with some resolution in her dyspnea. The patient denies a known history of CHF, review of the patient's chart showed that her last echo was in 2021 which showed grossly normal findings, she denies leg swelling. Nursing Notes were reviewed. Limitations to history: None Outside historians: None REVIEW OF SYSTEMS Review of Systems Pertinent positives and negatives as per HPI. PAST MEDICAL HISTORY Past Medical History: Diagnosis Date Chronic kidney disease (CKD) Hemodialysis patient (CMS/HCC) (HCC) Wednesday, , Wednesday History of blood transfusion 02/27/2022 Hypertension Seizure ([facility]) Developed seizure-like activity on 02/24 during hospital admission SURGICAL HISTORY Past Surgical History: Procedure Laterality Date AV FISTULA PLACEMENT Left 08/07/2022 COLONOSCOPY N/A 01/25/2024 Performed by Chrissy Gilman MD at [facility] ENDOSCOPY IR CVC TUNNELED DIALYSIS CATHETER PLACEMENT 02/27/2022 IR CVC TUNNELED CATHETER PLACEMENT 02/27/2022 Candis Andrade MD [facility] SPECIAL PROCEDURES IR EMBOLIZATION 01/24/2024 IR EMBOLIZATION 01/24/2024 Jovan Glynn MD [facility] SPECIAL PROCEDURES CURRENT MEDICATIONS Current Discharge Medication List CONTINUE these medications which have NOT CHANGED Details amLODIPine (Norvasc) 5 MG tablet Take 1 tablet (5 mg) by mouth daily. Qty: 30 tablet, Refills: 11 ASTRAGALUS PO Take 1 mL by mouth 3 times daily. atorvastatin (Lipitor) 40 MG tablet Take 1 tablet (40 mg) by mouth Nightly. Qty: 30 tablet, Refills: 11 calcium acetate (Phoslo) 667 MG tablet Take 1 tablet by mouth in the morning and 1 tablet at noon and 1 tablet in the evening. Take with meals. cholecalciferol (Vitamin D-3) 125 MCG (5000 UT) capsule Take 5,000 Units by mouth daily. levETIRAcetam (Keppra) 500 MG tablet Take 1 tablet (500 mg) by mouth daily. Qty: 30 tablet, Refills: 1 !! NON FORMULARY Take 1 mL by mouth 3 times daily. Kidney tonic !! NON FORMULARY Take 1 capsule by mouth daily. [place] omega-3 (Fish Oil) 1000 MG capsule Take 1,000 mg by mouth daily. Thiamine HCl (vitamin B-1) 250 MG tablet Take 250 mg by mouth daily. !! - Potential duplicate medications found. Please discuss with provider. ALLERGIES Patient has no known allergies. FAMILY HISTORY Family History Problem Relation Name Age of Onset Dementia Mother Stroke Father Breast cancer Cousin SOCIAL HISTORY Social History Socioeconomic History Marital status: Tobacco Use Smoking status: Never Smokeless tobacco: Never Vaping Use Vaping status: Never Used Substance and Sexual Activity Alcohol use: Yes Alcohol/week: 2.0 standard drinks of alcohol Types: 2 Glasses of wine per week Comment: weekly Drug use: Never Social Drivers of Health Food Insecurity: No Food Insecurity (03/02/2024) Hunger Vital Sign Worried About Running Out of Food in the Last Year: Never true Ran Out of Food in the Last Year: Never true Transportation Needs: No Transportation Needs (03/02/2024) PRAPARE - Transportation Lack of Transportation (Medical): No Lack of Transportation (Non-Medical): No Intimate Partner Violence: Not At Risk (03/02/2024) Humiliation, Afraid, Rape, and Kick questionnaire Fear of Current or Ex-Partner: No Emotionally Abused: No Physically Abused: No Sexually Abused: No Housing Stability: Low Risk (03/02/2024) Housing Stability Vital Sign Unable to Pay for Housing in the Last Year: No Number of Times Moved in the Last Year: 0 Homeless in the Last Year: No SCREENINGS PHYSICAL EXAM ED Triage Vitals Temp Heart Rate Resp BP 03/02/24 03503/02/2435003/02/2435003/02/24350 36.2 C (97.1 F) 90 16 (!) 208/97 SpO2 Temp Source Heart Rate Source Patient Position 03/02/2435003/02/2435003/02/2435003/02/24 0900 (!) 88 % Temporal Monitor Lying BP Location FiO2 (%) 03/02/24 0824 -- Right arm Physical Exam Constitutional: Appearance: She is well-developed. Comments: Appears uncomfortable HENT: Head: Normocephalic and atraumatic. Mouth/Throat: Mouth: Mucous membranes are moist. Pharynx: Oropharynx is clear. Eyes: Extraocular Movements: Extraocular movements intact. Pupils: Pupils are equal, round, and reactive to light. Cardiovascular: Rate and Rhythm: Normal rate. Heart sounds: No murmur heard. No friction rub. No gallop. Pulmonary: Effort: Tachypnea present. No accessory muscle usage. Breath sounds: Examination of the right-upper field reveals rales. Examination of the left-upper field reveals rales. Examination of the right-middle field reveals rales. Examination of the left-middle field reveals rales. Examination of the right-lower field reveals rales. Examination of the left-lower field reveals rales. Rales present. No decreased breath sounds, wheezing or rhonchi. Abdominal: General: Bowel sounds are normal. Palpations: Abdomen is soft. Tenderness: There is no abdominal tenderness. There is no guarding or rebound. Musculoskeletal: Right lower leg: No edema. Left lower leg: No edema. Skin: General: Skin is warm and dry. Capillary Refill: Capillary refill takes less than 2 seconds. Neurological: General: No focal deficit present. Mental Status: She is alert and oriented to person, place, and time. DIAGNOSTIC RESULTS RADIOLOGY (Per Emergency Physician): Chest x-ray: Bilateral interstitial prominence, no focal infiltrate Interpretation per the Radiologist below, if available at the time of this note: XR chest 1 view Final Result 1. Worsening bibasilar infiltrates and effusions. 2. Prominence of the central pulmonary vasculature consistent with moderate to severe congestive heart failure/fluid overload. Report Dictated on Electronically Signed By: Honorio Henson MD Electronically Signed Date/Time: 03/02/2024 4:43 AM EST Laboratory analysis: Hyperkalemia seen on basic metabolic panel 6.4, consistent with ESRD and missed dialysis; troponin in the normal range at 0.028; NT proBNP is elevated 26,175, consistent with fluid close review review shows alkalosis with pH 7.437, consistent with tachypnea and supplemental oxygen sampling; CBC auto differential displays anemia with hemoglobin 10.2 and hematocrit 32.3, improved from prior values LABS: Labs Reviewed BASIC METABOLIC PANEL - Abnormal Result Value SODIUM 137 POTASSIUM 6.4 (*) CHLORIDE 97 (*) CARBON DIOXIDE 20 (*) UREA NITROGEN 58 (*) CREATININE 11.21 (*) GLUCOSE 110 (*) CALCIUM 8.8 ANION GAP 20 (*) eGFR 3.3 (*) CBC WITH AUTO DIFFERENTIAL - Abnormal Auto WBC 8.5 RBC 3.33 (*) Hemoglobin 10.2 (*) Hematocrit 32.3 (*) MCV 97.0 MCH 30.6 MCHC 31.6 RDW 16.6 (*) Platelets 406 MPV 10.3 nRBC 0.0 Neutrophils Relative 76.6 Lymphocytes Relative 14.4 (*) Monocytes Relative 5.4 Eosinophils Relative 2.1 Basophils Relative 1.1 Immature Grans % 0.4 Neutrophils Absolute 6.5 Lymphocytes Absolute 1.2 Monocytes Absolute 0.5 Eosinophils Absolute 0.2 Basophils Absolute 0.1 Immature Grans Absolute 0.0 NT PRO BNP - Abnormal NT PRO BNP 26,175 (*) BLOOD GAS, VENOUS - Abnormal pH, Venous 7.437 (*) pCO2, Venous 36.0 (*) pO2, Venous 45.7 HCO3, Venous 23.7 O2 Sat, Venous 73.5 Base Excess, Venous -0.1 Hgb, blood gas 12.1 TCO2, Venous 24.8 Source Of Oxygen 2L Narrative: Assessment of oxygenation is best done with an arterial blood gas determination. Reference ranges for pO2, bicarbonate, and base excess are for mixed venous blood. Specimens drawn from a peripheral vein will often have higher values. POCT GLUCOSE METER UNSOLICITED RESULTS - Abnormal Glucose 239 (*) Narrative: Performed by: [facility], [address] [place] [id number] CLIA ID: [id number] POCT GLUCOSE METER UNSOLICITED RESULTS - Abnormal Glucose 57 (*) Narrative: Performed by: [facility], [address] [place] [address] CLIA ID: [id number] TROPONIN, WITH SERIAL REFLEX - Normal TROPONIN I 0.028 Narrative: Patients with high levels of Biotin oral intake (ie >5 mg/day) may have falsely decreased Troponin levels. TROPONIN I - Normal TROPONIN I 0.029 Narrative: Patients with high levels of Biotin oral intake (ie >5 mg/day) may have falsely decreased Troponin levels. TROPONIN I - Normal TROPONIN I 0.029 Narrative: Patients with high levels of Biotin oral intake (ie >5 mg/day) may have falsely decreased Troponin levels. POCT GLUCOSE METER UNSOLICITED RESULTS - Normal Glucose 88 Narrative: Performed by: [facility], [address] [place] [address] CLIA ID: [id number] POCT GLUCOSE METER UNSOLICITED RESULTS - Normal Glucose 88 Narrative: Performed by: [facility], [address] [place] [address] CLIA ID: [id number] POCT GLUCOSE METER POCT GLUCOSE METER POCT GLUCOSE METER POCT GLUCOSE METER POCT GLUCOSE METER POCT GLUCOSE METER POCT GLUCOSE METER EKG: Sinus rhythm, rate 86, normal axis, UT interval 123, QTc 483, no ST segment elevations or depressions, no evidence of acute ischemia Encounter Date: 03/02/24 ECG 12 lead Result Value Heart Rate 86 QRSD Interval 96 QT Interval 404 QTC Interval 483 P I[place] 58 QRS Ionia 0 T Wave Ionia 51 UT Interval 123 Impression Sinus rhythm Probable left atrial enlargement Normal axis Electronically Signed On 03-02-2024 07:16:24 EST by Marcus Ragland All other labs were within normal range or not returned as of this dictation. EMERGENCY DEPARTMENT COURSE and DIFFERENTIAL DIAGNOSIS/MDM: Vitals: Vitals: 03/02/24 1041 03/02/24 1045 03/02/24 1100 03/02/24 1130 BP: (!) 203/99 (!) 188/90 (!) 191/94 (!) 169/88 BP Location: Patient Position: Pulse: 87 88 84 83 Resp: Temp: TempSrc: SpO2: Weight: Height: The patient presented with a chief complaint of shortness of breath in the setting of missed dialysis. The differential diagnosis associated with this patient's presentation includes acute pulmonary edema secondary to renal failure, CHF, ACS, electrolyte disturbance, symptomatic anemia, pneumonia. Our workup consisted of ordering/reviewing EKG, chest x-ray, troponin, NT proBNP, CBC, BMP, VBG. The patient's chest x-ray does not display focality of infiltrates appreciated bilaterally, making pneumonia less likely, she is also afebrile and nontoxic-appearing; the patient does not have lower extremity edema suggestive of CHF and I do believe her Rales on exam are more likely secondary to ESRD, making CHF less likely; ACS is less likely in this patient as her EKG is not acutely ischemic and her troponin is within normal range; symptomatic anemia is less likely in this patient as her hemoglobin hematocrit are improved from prior values; electrolyte disturbance is less likely in this patient as her electrolytes are grossly normal range on BMP; the patient is saturating well on supplemental oxygen via nasal cannula and as such she is not requiring NIV at this time, nephrology was consulted regarding the patient who recommended that the patient be admitted following dialysis treatment, the patient's hyperkalemia was temporized with calcium gluconate and insulin and dextrose, on-call hospitalist was followed regarding a medical admission following the patient's dialysis treatment, patient is agreement with the plan for admission following dialysis. Diagnoses as of 03/02/24 1150 Shortness of breath Acute pulmonary edema (HCC) Hyperkalemia External records reviewed: ED notes 08/09/2023-hyperkalemia; ED notes 02/21/2023-ESRD on hemodialysis; ED notes 02/12/2024-hypertension Diagnostics interpreted by me: EKG, chest x-ray, laboratory studies Discussions with other clinicians: Attending physician Chronic conditions impacting care: ESRD Social determinants of health affecting care: none ED Medications managed: Medications glucose oral gel 15 g (15 g Oral Given 03/02/24 0824) dextrose 50 % solution 12.5 g (has no administration in time range) glucagon (human recombinant) injection 1 mg (has no administration in time range) dextrose 5 % infusion (has no administration in time range) acetaminophen (Tylenol) tablet 650 mg (has no administration in time range) Or acetaminophen (Tylenol) suppository 650 mg (has no administration in time range) ondansetron ODT (Zofran-ODT) disintegrating tablet 4 mg (has no administration in time range) Or ondansetron (Zofran) injection 4 mg (has no administration in time range) polyethylene glycol (PEG) 3350 (Miralax) packet 17 g (has no administration in time range) influenza vaccine A&B surf ant adjuvanted (Fluad) HIGH-DOSE injection 0.5 mL (has no administration in time range) heparin injection 5,000 Units (has no administration in time range) amLODIPine (Norvasc) tablet 10 mg (has no administration in time range) atorvastatin (Lipitor) tablet 40 mg (has no administration in time range) calcium acetate (Phoslo) capsule 667 mg (667 mg Oral Given 03/02/24 0815) levETIRAcetam (Keppra) tablet 500 mg (has no administration in time range) hydrALAZINE (Apresoline) injection 10 mg (has no administration in time range) melatonin tablet 5 mg (has no administration in time range) insulin regular (HumuLIN R,NovoLIN R) injection 10 Units (10 Units IntraVENous Given 03/02/24 0701) And dextrose 50 % solution 25 g (25 g IntraVENous Given 03/02/24 0702) calcium gluconate 10 % injection 1,000 mg (1,000 mg IntraVENous Given 03/02/24 0700) Prescription drugs considered: Insulin, dextrose, calcium gluconate PROCEDURES: Unless otherwise noted below, none Procedures FINAL IMPRESSION 1. Shortness of breath 2. Acute pulmonary edema (HCC) 3. Hyperkalemia DISPOSITION Admit 03/02/2024 07:56:41 AM PATIENT REFERRED TO: No follow-up provider specified. DISCHARGE MEDICATIONS: Current Discharge Medication List (Comment: Please note this report has been produced using speech recognition software and may contain errors related to that system including errors in grammar, punctuation, and spelling, as well as words and phrases that may be inappropriate. If there are any questions or concerns please feel free to contact the dictating provider for clarification.) Jacob Laguna DO (electronically signed) Emergency Medicine Provider Jacob Laguna DO Resident 03/02/24 1206 Cosigned by Marcus Ragland DO at 03/02/2024 4:24 PM EST [facility] 02-20-2024 Nurse Note RN reviewed discharge AVS with pt and pt verbalized understanding. Pt ambulated out independently to meet at entrance [facility] 02-20-2024 Nurse Note RN reviewed discharge AVS with pt and pt verbalized understanding. Pt ambulated out independently to meet at entrance documented in this encounter [facility] 02-20-2024 Hospital course Narrative Hospitalist Discharge Summary Apoorva Gonzalez : 1950 Admit date: 02/19/2024 Discharge date: 02/20/2024 Admitting Physician: Radha Kevin DO Primary Care Physician: Roxie Spain Visit Status: inpt Code Status: Full Code BRIEF HOSPITAL COURSE: Acute, acute on chronic, unstable/uncontrolled chronic problems/discharge diagnoses: Dyspnea due to volume overload Stable chronic problems affecting care, new non-acute discharge diagnoses: ESRD HTN Seizure d/o Past Medical History: Diagnosis Date Chronic kidney disease (CKD) Hemodialysis patient (CMS/HCC) (HCC) Wednesday, , Wednesday History of blood transfusion 02/27/2022 Hypertension Seizure (HCC) Developed seizure-like activity on 02/24 during hospital admission Procedures: Hospital Course: Apoorva is a 73 y.o. 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 C-scope with diverticulosis and evidence of diverticular spasm, but no source of bleeding. Received blood transfusion Apoorva reports she has been experiencing cough with clear sputum since she was discharged from the hospital last month. She also reports worsening fatigue Says that her BP went up yesterday and her vision got blurry as it usually does when her BP goes up. She felt progressively more short of breath, hypertensive and anxious and called paramedics She was hypoxic down to 54% on RA per EMS. placed on Bipap, started on nitroglycerin ggt, given IV Lasix 80 mg with improvement and was weaned to 6 L. She was taken for urgent HD with UF and had immediate improvement in her SOB. She was weaned down to RA and was feeling much better the following day and was ok to dc home at this time. Consults: IP CONSULT TO NEPHROLOGY IP CONSULT TO SOCIAL WORK Discharge Instructions: Diet: Dietary Orders (From admission, onward) Start Ordered 02/19/242311 Adult diet Regular; Low Potassium (Less than 3000 mg/day) Diet effective now Question Answer Comment Diet type Regular Potassium restriction: Low Potassium (Less than 3000 mg/day) 02/19/242311 Activity: as tolerated Recommended Outpatient Tests: Disposition: Patient discharged in stable condition to Home. Greater than 31 minutes spent discharging the patient and coming up with patient discharge plan. Vitals: BP 157/72 (BP Location: Left arm, Patient Position: Lying) Pulse 88 Temp 36.4 C (97.6 F) (Temporal) Resp 16 Ht 5' 4 (1.626 m) Wt 107 lb (48.5 kg) SpO2 94% BMI 18.37 kg/m Pulse Ox: SpO2 Av.3 % Min: 94 % Max: 100 % Supplemental O2: O2 Flow Rate (L/min): 2 L/min Physical Exam Cardiovascular: Rate and Rhythm: Normal rate and regular rhythm. Pulmonary: Effort: Pulmonary effort is normal. Breath sounds: Normal breath sounds. Abdominal: General: Abdomen is flat. Bowel sounds are normal. Palpations: Abdomen is soft. Skin: General: Skin is warm. Neurological: General: No focal deficit present. Mental Status: She is alert and oriented to person, place, and time. LABS: Recent Labs 02/19/2440902/19/24 1614 02/20/24 0020 NA 134* 134* 135 K 5.2* 4.1 3.8 CL 95* 95* 97* CO2 21* 28 27 BUN 44* 18* 29* CREATININE 6.67* 3.12* 4.37* GLUCOSE 193* 104* 91 CALCIUM 8.2* 8.5 8.2* Recent Labs 02/19/24 0410 02/19/24 0622 02/20/24 0020 WBC 11.5* -- 11.2* RBC 3.00* -- 2.73* HGB 8.7 9.2* 8.8 8.4* HCT 30.6* -- 27.4* MCV 102.0* -- 100.4* MCH 30.7 -- 30.8 MCHC 30.1* -- 30.7 RDW 18.0* -- 17.5* PLT 472* -- 405 MPV 10.4 -- 10.1 Discharge Medications: Medication List CHANGE how you take these medications amLODIPine 5 MG tablet Commonly known as: Norvasc Take 1 tablet (5 mg) by mouth daily. What changed: how much to take CONTINUE taking these medications ASTRAGALUS PO atorvastatin 40 MG tablet Commonly known as: Lipitor Take 1 tablet (40 mg) by mouth Nightly. calcium acetate 667 MG tablet Commonly known as: Phoslo cholecalciferol 125 MCG (5000 UT) capsule Commonly known as: Vitamin D-3 levETIRAcetam 500 MG tablet Commonly known as: Keppra Take 1 tablet (500 mg) by mouth daily. NON FORMULARY NON FORMULARY omega-3 1000 MG capsule Commonly known as: Fish Oil vitamin B-1 250 MG tablet Recommended Follow-up: Roxie Judit [address] [place] [address] Schedule an appointment as soon as possible for a visit in 1 week(s) Complexity of Follow up: [] Moderate Complexity: follow up within 7-14 calendar days (23837) [x] Severe Complexity: follow up within 7 calendar days (20154) Follow up Testing, Pending results or Referrals at Transitional Care Visit: [x] yes [] no Instructions to MA: Please call patient on day after discharge (must document patient contacted within 2 business days of discharge). Follow up questions for MA: 1. Did you get medications filled and taking them as instructed from discharge? 2. Are you following your discharge instructions from your hospital stay? 3. Please confirm patient is scheduled for a follow up appointment within the above time frame. Signed: Geoff Gonsales MD Division of Hospitalist Medicine [facility] 02/20/2024, 3:01 PM documented in this encounter [facility] 02-20-2024 History of Present illness Narrative [facility] [place] Nephrology Progress Note Patient is a 73 y.o. female who is admitted to hospital with complaints of SOB . Nephrology consulted in view of ESRD . Events over night: Feeling better . Had HD on 02/18 BP 157/72 (BP Location: Left arm, Patient Position: Lying) Pulse 88 Temp 36.4 C (97.6 F) (Temporal) Resp 16 Ht 1.626 m (5' 4) Wt 48.5 kg (107 lb) SpO2 94% BMI 18.37 kg/m Input / Output: 24 HR: Intake/Output Summary (Last 24 hours) at 02/20/2024 1408 Last data filed at 02/20/2024 0635 Gross per 24 hour Intake 550 ml Output -- Net 550 ml Physical Exam Alert and oriented x 3 NAD Neck: no JVD CV: RRR Lungs: CTA bilaterally Abd: soft, NT, ND Ext: no lower extremity edema Scheduled medications amLODIPine, 10 mg, Oral, Daily [Held by provider] atorvastatin, 40 mg, Oral, Nightly calcium acetate, 667 mg, Oral, TID WC cefTRIAXone, 1 g, IntraVENous, q24h cholecalciferol, 5,000 Units, Oral, Daily heparin, 5,000 Units, SubCUTAneous, 2 times per day sodium chloride 0.9%, 10 mL, IntraVENous, 2 times per day sodium chloride 0.9%, 10 mL, IntraVENous, 2 times per day Continuous medications PRN medications PRN medications: acetaminophen OR acetaminophen, albuterol, benzonatate, ipratropium-albuterol, ondansetron ODT OR ondansetron, polyethylene glycol (PEG) 3350, sodium chloride, sodium chloride, sodium chloride 0.9%, sodium chloride 0.9% Results from last 7 days Lab Units 02/20/24 0020 SODIUM mmol/L 135 POTASSIUM mmol/L 3.8 CHLORIDE mmol/L 97* CO2 mmol/L 27 BUN mg/dL 29* CREATININE mg/dL 4.37* CALCIUM mg/dL 8.2* PROTEIN TOTAL g/dL 6.2* BILIRUBIN TOTAL mg/dL 0.7 ALK PHOS U/L 136* ALT U/L 35* AST U/L 41 GLUCOSE mg/dL 91 Results from last 7 days Lab Units 02/20/24 0020 02/19/24 0622 02/19/24 0410 WBC AUTO 10*3/uL 11.2* -- 11.5* HEMOGLOBIN g/dL 8.4* -- 9.2* HEMOGLOBIN BG g/dl -- 8.8 8.7 HEMATOCRIT % 27.4* -- 30.6* PLATELETS 10*3/uL 405 -- 472* Assessment & Plan: Apoorva Gonzalez is a 73 y.o. female with hx including ESRD, HTN, seizure who presented with [facility]. Nephrology following for ESRD. ESRD -patient on TTS schedule as outpatient -access: LUE AVG HTN -BP with acceptable control recently Volume -ultrafiltration with HD Electrolytes -hyperkalemia -correction/stabilization with HD -hyponatremia -in setting of ESRD -mild with recent S Na at 134 -correction/stabilization with HD/UF Acid/base -stabilization with HD CKD MBD Plan: - continue HD on TTS schedule, Ok for Discharge Please message me through [employer] chat with any questions or concerns. Pipe Soto MD 02/20/2024 2:08 PM [facility] [address] [place] [address], [address] [place] [id number] Office: [phone] [facility] Respiratory Care Department Progress Note As part of the Respiratory Assessment Program (RAP), the following Respiratory Therapist evaluation has been completed, including a chart review and clinical/physical assessment. Respiratory Therapist RAP Evaluation Guideline Points 0 1 2 3 4 Points Strongly Consider History Factor No Pulmonary conditions Stable Pulmonary condition(s) Surgery or Intervention that may impact Pulmonary system (at risk) Surgery or Intervention that is impacting Pulmonary system Active Exacerbation of Pulmonary Condition 0 Respiratory Pattern Regular, RR= 12-18 BRAY or Increased RR= 19-24 Irregular, or RR= 25-30 SOB, talk in short sentences, or RR= 31-35 Severe SOB, accessory muscle use, one word answers, or RR>35 0 Aerosol Med(s), High Flow O2 Breath Sounds Clear Diminished in 1 lobe Diminished in <= 2 lobes Adventitious breath sounds Coarse crackles, Wheezes, or Diminished in >2 lobes 2 Aerosol Med(s), Bronchial Hygiene, Hyperinflation Cough & Sputum Strong cough, no secretion retention or production Weak cough, no secretion retention or production Weak cough, w/ production (less often than Q2hr), or secretion retention No cough, w/ secretion retention or production (less often than Q2hr) Significant secretion production (more often than Q2hr) or mucus plug 0 Aerosol Med(s), Bronchial Hygiene, Hyperinflation Level of Activity Ambulatory Ambulatory with Assist Up in chair or edge of bed (dangle) Non-ambulatory, bedridden with active ROM Completely paralyzed or without active ROM 0 Triage 5 0-2 Triage 4 3-5 Triage 3 6-10 Triage 2 11-14 Triage 1 >=15 Total 2 Triage Score = 5 TRIAGE SCORING - SUGGESTED FREQUENCIES Aerosol Therapy Bronchial Hygiene Hyperinflation Triage Score Q4h & PRN 1 Q4hWA (QID) & PRN 2 TID & PRN 3 BID & PRN 4 PRN 5 Therapy(s) Indicated Yes/No Aerosol Medication Y Hyperinflation N Bronchial Hygiene N High Flow Oxygen N Patient instructed and returned demonstration on use of MDI (with spacer, as appropriate) None RT to enter/modify frequency of treatment order in EMR/EHR to match this RAP evaluation. Based on this RAP evaluation the following therapy is being initiated: DuoNeb At the following frequency: PRN Comments: Thank you for involving Respiratory in the care of this patient, documented in this encounter [facility] 02-20-2024 Plan of care note Problem: Excessive Fluid Volume Goal: Fluid and electrolyte balance are achieved/maintained Outcome: Progressing Problem: Inadequate Gas Exchange Goal: Patient is adequately oxygenated and ventilation is improved Outcome: Progressing Goal: Nutritional status is improving Outcome: Progressing Problem: Activity Intolerance/Impaired Mobility Goal: Mobility/activity is maintained at optimum level for patient Outcome: Progressing Problem: Safety - Adult Goal: Free from fall injury Outcome: Progressing Problem: Discharge Planning Goal: Discharge to home or other facility with appropriate resources Outcome: Progressing [facility] 02-20-2024 Miscellaneous Notes Problem: Excessive Fluid Volume Goal: Fluid and electrolyte balance are achieved/maintained Outcome: Progressing Problem: Inadequate Gas Exchange Goal: Patient is adequately oxygenated and ventilation is improved Outcome: Progressing Goal: Nutritional status is improving Outcome: Progressing Problem: Activity Intolerance/Impaired Mobility Goal: Mobility/activity is maintained at optimum level for patient Outcome: Progressing Problem: Safety - Adult Goal: Free from fall injury Outcome: Progressing Problem: Discharge Planning Goal: Discharge to home or other facility with appropriate resources Outcome: Progressing documented in this encounter [facility] 02-19-2024 Emergency department Note Patient taken to floor. Respirations even and unlabored. No acute distress noted. AXO x 4 and vitals obtained, stable for tx. [facility] 02-19-2024 Emergency department Note Patient taken to floor. Respirations even and unlabored. No acute distress noted. AXO x 4 and vitals obtained, stable for tx. Report from CYNTHIA Law. Report given to Gertrude MARIE Emergency Department Encounter [facility] EMERGENCY DEPT Patient: Apoorva Gonzalez : 1950 Date of Evaluation: 02/19/2024 ED Supervising Physician: Cassie Mace DO I personally evaluated Apoorva Gonzalez and made/approved the management plan and take responsibility for the patient management. This will serve as my Supervisory note and shared attestation. I did perform a substantive portion of the visit including all aspects of the Medical Decision Making. I wore appropriate PPE for the entirety of this encounter. In brief, Apoorva Gonzalez is a 73 y.o. with past medical history of hypertension, end-stage renal disease on dialysis Wednesday that presents to the emergency department for dyspnea. Patient reports worsening dyspnea over the past 2 days. Per EMS, patient was in respiratory distress and saturating 54% on room air, incremented to 90% on nonrebreather. Patient states last hemodialysis on , completed full treatment and still makes some urine. Gen: In respiratory distress HEENT: Head atraumatic. Eyes no discharge, nonicteric and non injected Heart: Tachycardic, regular rhythm Lungs: Diffuse rales, tachypneic, retracting, in respiratory distress Abd: mildly distended otherwise soft and nontender Extremities: Palpable radial and DP. No edema Brief ED course/MDM: Upon arrival to the ED, patient in respiratory distress desaturating to mid 80s on nonrebreather, tachypneic, and tachycardic. Hypertensive 220/100. Diffuse rales concerning for flash pulmonary edema. Patient started on BiPAP and nitroglycerin gtt. chest x-ray fluid overloaded with pulmonary edema. Lactate elevated 3.3 and mild leukocytosis, however I suspect this is likely due to severe hypoxia as patient is denying any fever/chills, cough over the past couple of days. Will defer antibiotics at this time. Renal function at baseline. Potassium 5.2. No EKG changes. Patient was given Lasix 80 mg IV as she is still making urine. Plan for admission ICU versus medicine if able to wean off of BiPAP. All diagnostic, treatment, and disposition decisions were made by myself in conjunction with the Resident. I also supervised saavedra portions of any procedures performed by the Resident. For all further details of the patient's emergency department visit, please see their documentation. (Comment: Please note this report has been produced using speech recognition software and may contain errors related to that system including errors in grammar, punctuation, and spelling, as well as words and phrases that may be inappropriate. If there are any questions or concerns please feel free to contact the dictating provider for clarification.) Cassie Mace DO [employer] Cassie Mace DO 02/19/24 0533 documented in this encounter [facility] 02-19-2024 Emergency department Note Report from CYNTHIA Law. [facility] 02-19-2024 Emergency department Note Report given to Gertrude MARIE [facility] 02-19-2024 Consult note Associated Order (s): Inpatient consult to Nephrology [facility] Nephrology Consult Note Inpatient consult to Nephrology Consult performed by: Pipe Soto MD Consult ordered by: Radha Kevin DO HPI Patient is a 73 y.o. female who is admitted to hospital with complaints of SOB . Nephrology consulted in view of ESRD . Apoorva Gonzalez is a 73 y.o. with past medical history of hypertension, end-stage renal disease on dialysis Wednesday that presents to the emergency department for dyspnea. Patient reports worsening dyspnea over the past 2 days. Per EMS, patient was in respiratory distress and saturating 54% on room air, incremented to 90% on nonrebreather. Patient states last hemodialysis on , completed full treatment and still makes some urine. Past Medical History: Diagnosis Date Chronic kidney disease (CKD) Hemodialysis patient ([facility]/HCC) (HCC) Wednesday, , Wednesday History of blood transfusion 02/27/2022 Hypertension Seizure (HCC) Developed seizure-like activity on 02/24 during hospital admission Social History Socioeconomic History Marital status: Spouse name: Not on file Number of children: Not on file Years of education: Not on file Highest education level: Not on file Occupational History Not on file Tobacco Use Smoking status: Never Smokeless tobacco: Never Vaping Use Vaping status: Never Used Substance and Sexual Activity Alcohol use: Yes Alcohol/week: 2.0 standard drinks of alcohol Types: 2 Glasses of wine per week Comment: weekly Drug use: Never Sexual activity: Not on file Other Topics Concern Not on file Social History Narrative Not on file Social Drivers of Health Financial Resource Strain: Not on file Food Insecurity: Not on file Transportation Needs: No Transportation Needs (02/22/2022) PRAPARE - Transportation Lack of Transportation (Medical): No Lack of Transportation (Non-Medical): No Physical Activity: Not on file Stress: Not on file Social Connections: Not on file Intimate Partner Violence: Not At Risk (08/07/2022) Humiliation, Afraid, Rape, and Kick questionnaire Fear of Current or Ex-Partner: No Emotionally Abused: No Physically Abused: No Sexually Abused: No Housing Stability: Not on file Family History Problem Relation Name Age of Onset Dementia Mother Stroke Father Breast cancer Cousin No current facility-administered medications on file prior to encounter. Current Outpatient Medications on File Prior to Encounter Medication Sig Dispense Refill amLODIPine (Norvasc) 5 MG tablet Take 1 tablet (5 mg) by mouth daily. (Patient taking differently: Take 10 mg by mouth daily.) 30 tablet 11 ASTRAGALUS PO Take 1 mL by mouth 3 times daily. atorvastatin (Lipitor) 40 MG tablet Take 1 tablet (40 mg) by mouth Nightly. 30 tablet 11 calcium acetate (Phoslo) 667 MG tablet Take 1 tablet by mouth in the morning and 1 tablet at noon and 1 tablet in the evening. Take with meals. cholecalciferol (Vitamin D-3) 125 MCG (5000 UT) capsule Take 5,000 Units by mouth daily. levETIRAcetam (Keppra) 500 MG tablet Take 1 tablet (500 mg) by mouth daily. 30 tablet 1 NON FORMULARY Take 1 mL by mouth 3 times daily. Kidney tonic NON FORMULARY Take 1 capsule by mouth daily. [place] omega-3 (Fish Oil) 1000 MG capsule Take 1,000 mg by mouth daily. Thiamine HCl (vitamin B-1) 250 MG tablet Take 250 mg by mouth daily. Scheduled medications amLODIPine, 10 mg, Oral, Daily [Held by provider] atorvastatin, 40 mg, Oral, Nightly cefTRIAXone, 1 g, IntraVENous, q24h And azithromycin, 500 mg, Oral, q24h calcium acetate, 667 mg, Oral, TID WC cholecalciferol, 5,000 Units, Oral, Daily heparin, 5,000 Units, SubCUTAneous, 2 times per day sodium chloride 0.9%, 10 mL, IntraVENous, 2 times per day Continuous medications nitroglycerin, 5-200 mcg/min, Last Rate: Stopped (02/19/24 0434) PRN medications PRN medications: acetaminophen OR acetaminophen, benzonatate, ondansetron ODT OR ondansetron, polyethylene glycol (PEG) 3350, sodium chloride, sodium chloride 0.9% Review of systems as per HPI otherwise 10 point review systems negative BP 132/66 Pulse 83 Temp 36.8 C (98.2 F) Resp 26 SpO2 100% Input / Output: 24 HR: No intake or output data in the 24 hours ending 02/19/24 1338 Physical Exam Alert and oriented x 3, NAD EOMI OP clear Neck: supple, No JVD CV: RRR without m/r/g Lungs: CTA bilaterally Abd: soft NT/ND +BS Ext: no lower extremity edema : no whyte Neuro: grossly intact Skin: no rashes Results from last 7 days Lab Units 02/19/24 0410 SODIUM mmol/L 134* POTASSIUM mmol/L 5.2* CHLORIDE mmol/L 95* CO2 mmol/L 21* BUN mg/dL 44* CREATININE mg/dL 6.67* GLUCOSE mg/dL 193* CALCIUM mg/dL 8.2* Results from last 7 days Lab Units 02/19/24 0410 SODIUM mmol/L 134* POTASSIUM mmol/L 5.2* CHLORIDE mmol/L 95* CO2 mmol/L 21* BUN mg/dL 44* CREATININE mg/dL 6.67* CALCIUM mg/dL 8.2* PROTEIN TOTAL g/dL 7.3 BILIRUBIN TOTAL mg/dL 1.1 ALK PHOS U/L 131* ALT U/L 50* AST U/L 105* GLUCOSE mg/dL 193* Results from last 7 days Lab Units 02/19/24 0622 02/19/24 0410 WBC AUTO 10*3/uL -- 11.5* HEMOGLOBIN g/dL -- 9.2* HEMOGLOBIN BG g/dl 8.8 8.7 HEMATOCRIT % -- 30.6* PLATELETS 10*3/uL -- 472* XR chest 1 view Final Result Extensive patchy bilateral pulmonary consolidation, which may be due to alveolar edema versus pneumonia. Moderate bilateral pleural effusions. Report Dictated on Electronically Signed By: Ana Ashton MD Electronically Signed Date/Time: 02/19/2024 4:37 AM EST Assessment: Apoorva Gonzalez is a 73 y.o. female with hx including ESRD, HTN, seizure who presented with SOB l. Nephrology following for ESRD. ESRD -patient on TTS schedule as outpatient -access: LUE AVG HTN -BP with acceptable control recently Volume -ultrafiltration with HD Electrolytes -hyperkalemia -correction/stabilization with HD -hyponatremia -in setting of ESRD -mild with recent S Na at 134 -correction/stabilization with HD/UF Acid/base -stabilization with HD CKD MBD Plan: -seen on iHD today, continue HD on TTS schedule, Please message me through [employer] chat with any questions or concerns. Pipe Soto MD 02/19/2024 1:38 PM [facility] [address] [place] [address], [address] [place] [address] Office: [phone] [facility] 02-19-2024 Consult note Associated Order (s): Inpatient consult to Nephrology [facility] Ne[facility] Consult Note Inpatient consult to Nephrology Consult performed by: Pipe Soto MD Consult ordered by: DO VALERIO Sierra Patient is a 73 y.o. female who is admitted to hospital with complaints of SOB . Nephrology consulted in view of ESRD . Apoorva Gonzalez is a 73 y.o. with past medical history of hypertension, end-stage renal disease on dialysis Wednesday that presents to the emergency department for dyspnea. Patient reports worsening dyspnea over the past 2 days. Per EMS, patient was in respiratory distress and saturating 54% on room air, incremented to 90% on nonrebreather. Patient states last hemodialysis on , completed full treatment and still makes some urine. Past Medical History: Diagnosis Date Chronic kidney disease (CKD) Hemodialysis patient ([facility]/HCC) (HCC) Wednesday, , Wednesday History of blood transfusion 02/27/2022 Hypertension Seizure ([facility]) Developed seizure-like activity on 02/24 during hospital admission Social History Socioeconomic History Marital status: Spouse name: Not on file Number of children: Not on file Years of education: Not on file Highest education level: Not on file Occupational History Not on file Tobacco Use Smoking status: Never Smokeless tobacco: Never Vaping Use Vaping status: Never Used Substance and Sexual Activity Alcohol use: Yes Alcohol/week: 2.0 standard drinks of alcohol Types: 2 Glasses of wine per week Comment: weekly Drug use: Never Sexual activity: Not on file Other Topics Concern Not on file Social History Narrative Not on file Social Drivers of Health Financial Resource Strain: Not on file Food Insecurity: Not on file Transportation Needs: No Transportation Needs (02/22/2022) PRAPARE - Transportation Lack of Transportation (Medical): No Lack of Transportation (Non-Medical): No Physical Activity: Not on file Stress: Not on file Social Connections: Not on file Intimate Partner Violence: Not At Risk (08/07/2022) Humiliation, Afraid, Rape, and Kick questionnaire Fear of Current or Ex-Partner: No Emotionally Abused: No Physically Abused: No Sexually Abused: No Housing Stability: Not on file Family History Problem Relation Name Age of Onset Dementia Mother Stroke Father Breast cancer Cousin No current facility-administered medications on file prior to encounter. Current Outpatient Medications on File Prior to Encounter Medication Sig Dispense Refill amLODIPine (Norvasc) 5 MG tablet Take 1 tablet (5 mg) by mouth daily. (Patient taking differently: Take 10 mg by mouth daily.) 30 tablet 11 ASTRAGALUS PO Take 1 mL by mouth 3 times daily. atorvastatin (Lipitor) 40 MG tablet Take 1 tablet (40 mg) by mouth Nightly. 30 tablet 11 calcium acetate (Phoslo) 667 MG tablet Take 1 tablet by mouth in the morning and 1 tablet at noon and 1 tablet in the evening. Take with meals. cholecalciferol (Vitamin D-3) 125 MCG (5000 UT) capsule Take 5,000 Units by mouth daily. levETIRAcetam (Keppra) 500 MG tablet Take 1 tablet (500 mg) by mouth daily. 30 tablet 1 NON FORMULARY Take 1 mL by mouth 3 times daily. Kidney tonic NON FORMULARY Take 1 capsule by mouth daily. [place] omega-3 (Fish Oil) 1000 MG capsule Take 1,000 mg by mouth daily. Thiamine HCl (vitamin B-1) 250 MG tablet Take 250 mg by mouth daily. Scheduled medications amLODIPine, 10 mg, Oral, Daily [Held by provider] atorvastatin, 40 mg, Oral, Nightly cefTRIAXone, 1 g, IntraVENous, q24h And azithromycin, 500 mg, Oral, q24h calcium acetate, 667 mg, Oral, TID WC cholecalciferol, 5,000 Units, Oral, Daily heparin, 5,000 Units, SubCUTAneous, 2 times per day sodium chloride 0.9%, 10 mL, IntraVENous, 2 times per day Continuous medications nitroglycerin, 5-200 mcg/min, Last Rate: Stopped (02/19/24 0434) PRN medications PRN medications: acetaminophen OR acetaminophen, benzonatate, ondansetron ODT OR ondansetron, polyethylene glycol (PEG) 3350, sodium chloride, sodium chloride 0.9% Review of systems as per HPI otherwise 10 point review systems negative BP 132/66 Pulse 83 Temp 36.8 C (98.2 F) Resp 26 SpO2 100% Input / Output: 24 HR: No intake or output data in the 24 hours ending 02/19/24 1338 Physical Exam Alert and oriented x 3, NAD EOMI OP clear Neck: supple, No JVD CV: RRR without m/r/g Lungs: CTA bilaterally Abd: soft NT/ND +BS Ext: no lower extremity edema : no whyte Neuro: grossly intact Skin: no rashes Results from last 7 days Lab Units 02/19/24 0410 SODIUM mmol/L 134* POTASSIUM mmol/L 5.2* CHLORIDE mmol/L 95* CO2 mmol/L 21* BUN mg/dL 44* CREATININE mg/dL 6.67* GLUCOSE mg/dL 193* CALCIUM mg/dL 8.2* Results from last 7 days Lab Units 02/19/24 0410 SODIUM mmol/L 134* POTASSIUM mmol/L 5.2* CHLORIDE mmol/L 95* CO2 mmol/L 21* BUN mg/dL 44* CREATININE mg/dL 6.67* CALCIUM mg/dL 8.2* PROTEIN TOTAL g/dL 7.3 BILIRUBIN TOTAL mg/dL 1.1 ALK PHOS U/L 131* ALT U/L 50* AST U/L 105* GLUCOSE mg/dL 193* Results from last 7 days Lab Units 02/19/24 0622 02/19/24 0410 WBC AUTO 10*3/uL -- 11.5* HEMOGLOBIN g/dL -- 9.2* HEMOGLOBIN BG g/dl 8.8 8.7 HEMATOCRIT % -- 30.6* PLATELETS 10*3/uL -- 472* XR chest 1 view Final Result Extensive patchy bilateral pulmonary consolidation, which may be due to alveolar edema versus pneumonia. Moderate bilateral pleural effusions. Report Dictated on Electronically Signed By: Ana Ashton MD Electronically Signed Date/Time: 02/19/2024 4:37 AM EST Assessment: Apoorva Gonzalez is a 73 y.o. female with hx including ESRD, HTN, seizure who presented with SOB l. Nephrology following for ESRD. ESRD -patient on TTS schedule as outpatient -access: LUE AVG HTN -BP with acceptable control recently Volume -ultrafiltration with HD Electrolytes -hyperkalemia -correction/stabilization with HD -hyponatremia -in setting of ESRD -mild with recent S Na at 134 -correction/stabilization with HD/UF Acid/base -stabilization with HD CKD MBD Plan: -seen on iHD today, continue HD on TTS schedule, Please message me through [employer] chat with any questions or concerns. Pipe Soto MD 02/19/2024 1:38 PM [facility] [address] [place] [address], [address] [place] [address] Office: [phone] documented in this encounter [facility] 02-19-2024 History and physical note Attending History and Physical Admit Date: 02/19/2024 PCP: Roxie Spain CHIEF COMPLAINT: Chief Complaint Patient presents with Shortness of Breath Pt arrived SOB, missed HD today. EMS found pt 50% on RA. Denies chest pain. Pt is T/Th/Sa HD Reason for Admission: acute respiratory failure History Obtained From: patient, chart HISTORY OF PRESENT ILLNESS: Apoorva is a 73 y.o. 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 C-scope with diverticulosis and evidence of diverticular spasm, but no source of bleeding. Received blood transfusion Apoorva reports she has been experiencing cough with clear sputum since she was discharged from the hospital last month. She also reports worsening fatigue Says that her BP went up yesterday and her vision got blurry as it usually does when her BP goes up. She felt progressively more short of breath, hypertensive and anxious and called paramedics She was hypoxic down to 54% on RA per EMS. placed on Bipap, started on nitroglycerin ggt, given IV Lasix 80 mg with improvement and was weaned to 6 L In ED: HT 103, RR 35, Temp 184/70 WBC 11.5, lactate 3.3, BNP 21,574, Alk phos 131, AST 105, ALT 50, Nz = 134, K = 5.2, CO2 21, AG 18, Ca 8.2 , Hg = 9.2 === 02/19/24 === XR CHEST 1 VIEW Extensive patchy bilateral pulmonary consolidation, which may be due to alveolar edema versus pneumonia. Moderate bilateral pleural effusions. At the time of my evaluation patient is undergoing HD in ED room. Reports feeling a little better ( on 6 L NC. Normally never on oxygen) but not feeling normal yet everything is off and feeling achy all over. Denies chest pain I discussed with ED provider and agree with hospital admission Past Medical History: Past Medical History: Diagnosis Date Chronic kidney disease (CKD) Hemodialysis patient ([facility]/HCC) (HCC) Wednesday, , Wednesday History of blood transfusion 02/27/2022 Hypertension Seizure (HCC) Developed seizure-like activity on 02/24 during hospital admission Past Surgical History: Past Surgical History: Procedure Laterality Date AV FISTULA PLACEMENT Left 08/07/2022 COLONOSCOPY N/A 01/25/2024 Performed by Chrissy Gilman MD at [facility] ENDOSCOPY IR CVC TUNNELED DIALYSIS CATHETER PLACEMENT 02/27/2022 IR CVC TUNNELED CATHETER PLACEMENT 02/27/2022 Candis Andrade MD [facility] SPECIAL PROCEDURES IR EMBOLIZATION 01/24/2024 IR EMBOLIZATION 01/24/2024 Jovan Glynn MD [facility] SPECIAL PROCEDURES Social History: Social History Socioeconomic History Marital status: Spouse name: Not on file Number of children: Not on file Years of education: Not on file Highest education level: Not on file Occupational History Not on file Tobacco Use Smoking status: Never Smokeless tobacco: Never Vaping Use Vaping status: Never Used Substance and Sexual Activity Alcohol use: Yes Alcohol/week: 2.0 standard drinks of alcohol Types: 2 Glasses of wine per week Comment: weekly Drug use: Never Sexual activity: Not on file Other Topics Concern Not on file Social History Narrative Not on file Social Drivers of Health Financial Resource Strain: Not on file Food Insecurity: Not on file Transportation Needs: No Transportation Needs (02/22/2022) PRAPARE - Transportation Lack of Transportation (Medical): No Lack of Transportation (Non-Medical): No Physical Activity: Not on file Stress: Not on file Social Connections: Not on file Intimate Partner Violence: Not At Risk (08/07/2022) Humiliation, Afraid, Rape, and Kick questionnaire Fear of Current or Ex-Partner: No Emotionally Abused: No Physically Abused: No Sexually Abused: No Housing Stability: Not on file Family History: Family History Problem Relation Name Age of Onset Dementia Mother Stroke Father Breast cancer Cousin Medications Prior to Admission: No current facility-administered medications on file prior to encounter. Current Outpatient Medications on File Prior to Encounter Medication Sig Dispense Refill amLODIPine (Norvasc) 5 MG tablet Take 1 tablet (5 mg) by mouth daily. (Patient taking differently: Take 10 mg by mouth daily.) 30 tablet 11 ASTRAGALUS PO Take 1 mL by mouth 3 times daily. atorvastatin (Lipitor) 40 MG tablet Take 1 tablet (40 mg) by mouth Nightly. 30 tablet 11 calcium acetate (Phoslo) 667 MG tablet Take 1 tablet by mouth in the morning and 1 tablet at noon and 1 tablet in the evening. Take with meals. cholecalciferol (Vitamin D-3) 125 MCG (5000 UT) capsule Take 5,000 Units by mouth daily. levETIRAcetam (Keppra) 500 MG tablet Take 1 tablet (500 mg) by mouth daily. 30 tablet 1 NON FORMULARY Take 1 mL by mouth 3 times daily. Kidney tonic NON FORMULARY Take 1 capsule by mouth daily. [place] omega-3 (Fish Oil) 1000 MG capsule Take 1,000 mg by mouth daily. Thiamine HCl (vitamin B-1) 250 MG tablet Take 250 mg by mouth daily. Allergies: No Known Allergies REVIEW OF SYSTEMS: Review of Systems Constitutional: Positive for fatigue. Negative for chills and fever. Eyes: Positive for visual disturbance (improving). Respiratory: Positive for cough. Cardiovascular: Negative for chest pain and leg swelling. Gastrointestinal: Negative for constipation and diarrhea. Last BM 02/17 Genitourinary: Negative for dysuria. Musculoskeletal: Positive for myalgias. Skin: Negative for rash. Neurological: Positive for weakness. Psychiatric/Behavioral: Positive for sleep disturbance. Vitals: BP (!) 165/80 Pulse 83 Resp 20 SpO2 96% BMI Classification: Normal Weight (BMI 18.5-24.9) Pulse Ox: SpO2 Av.3 % Min: 95 % Max: 100 % Supplemental O2: O2 Flow Rate (L/min): 6 L/min PHYSICAL EXAM: Physical Exam Vitals and nursing note reviewed. Constitutional: General: She is not in acute distress. Appearance: She is ill-appearing. Interventions: Nasal cannula in place. HENT: Head: Normocephalic and atraumatic. Mouth/Throat: Mouth: Mucous membranes are moist. Eyes: Extraocular Movements: Extraocular movements intact. Cardiovascular: Rate and Rhythm: Normal rate and regular rhythm. Pulmonary: Effort: Pulmonary effort is normal. No respiratory distress. Breath sounds: Rales (few) present. Abdominal: General: Bowel sounds are normal. There is no distension. Tenderness: There is no abdominal tenderness. Musculoskeletal: General: No swelling or tenderness. Cervical back: Neck supple. Skin: General: Skin is warm and dry. Neurological: General: No focal deficit present. Mental Status: She is alert. Psychiatric: Mood and Affect: Mood normal. DATA: CBC: Recent Labs 02/19/24 0410 02/19/24 0622 WBC 11.5* -- RBC 3.00* -- HGB 8.7 9.2* 8.8 HCT 30.6* -- MCV 102.0* -- RDW 18.0* -- PLT 472* -- BMP: Recent Labs 02/19/24409 NA 134* K 5.2* CL 95* CO2 21* BUN 44* CREATININE 6.67* GLUCOSE 193* CALCIUM 8.2* ANIONGAP 18* LIVER PROFILE: Recent Labs 02/19/24409 AST 105* ALT 50* BILITOT 1.1 ALKPHOS 131* PROT 7.3 PT/INR: No results for input(s): PROTIME, INR in the last 72 hours. CARDIAC ENZYMES: Recent Labs 02/19/24409 TROPONINI 0.027 Procalcitonin: No results found for: PROCAL Urine Culture: No results found for this or any previous visit. COVID-19 PCR: No results for input(s): COVID19 in the last 72 hours. I reviewed: [x] laboratory results [x] radiographic results At the time of today's encounter. Pt was advised of the results. Data: (CAT1) Reviewed 3 or more notes from different specialty or health system (each=1). (CAT1) Reviewed 2 labs/studies ordered by another provider not previously counted (each=1, panels count as 1). (CAT1) Ordered 3 or more new labs and/or studies (each=1, panels count as 1). (CAT3) Discussed with ED provider, Dr. Huffman, regarding patient's eval & mgmt thus far, and agree with the plan for hospitalization. (LOW: 2x CAT1 or independent historian MOD: 3x CAT1 or 1x CAT3 EXTENSIVE: 3x CAT1 and 1x CAT3) Assessment Discussed management with the ED provider and agree with hospitalization. Acute, acute on chronic, unstable/uncontrolled chronic problems/diagnoses: Sepsis due to pneumonia - HR 103, RR35 - lactate wnl - check procal, Bcx, sputum Cx - Ceftriaxone + Azithro --> Ceftriaxone - no fluid bolus d/t pulm edema Acute respiratory failure - suspect flush pum edema in setting of ESRD and hypertension and concern for pneumonia - breathing is improved with nitroglycerin ggt , bipap and volume removal with HD/ultrafiltration - Ceftriaxone + azithromycin pending sputum Culture, urine antigens --> Uag negative -> stop azithro - RVP negative HTN urgency - BP improved - cont home norvasc Hyponatremia - cont HD per nephrology Elevated LFTs - hold lipitor and monitor Elevated troponin - demand mediated - resolved - no chest pain Stable chronic problems affecting care, new non-acute diagnoses: ESRD - HD per nephrology, appreciate input Anemia, recent GIB - cont PPI H/o seizure - no longer on AED - on chart review she had a seizure a/w hypertensive encephalopathy in 2021 Plan As a result of the above findings & factors, the following mgmt was pursued: - as above - am labs, replace lytes prn - PT/OT/CM/SW SEP-1 CORE MEASURE DATA SIRS Criteria Sepsis Criteria Severe Sepsis Criteria Septic Shock Criteria Must meet 2: [] Temperature > 100.4 F (38 C) or < 96.8 F (36 C) [x] HR > 90 [x] RR > 20 [] WBC > 12 or < 4 or 10% bands Must be confirmed or suspected to move forward with diagnosis of sepsis. Must select at least one: [x] Bacterial Infection Confirmed or Suspected. [] Viral Infection Confirmed or Suspected. [] No infection present. Patient does not meet criteria for Sepsis. Must meet 1: [] Lactate > 2 or [] Signs of Organ Dysfunction: - SBP < 90 or MAP < 65 - Altered mental status - Creatinine > 2 or increased from baseline - Urine Output < 0.5 ml/kg/hr - Bilirubin > 2 - INR > 1.5 - Platelets < 100,000 - Acute Respiratory Failure as evidenced by new need for NIPPV or mechanical ventilation [] No criteria met for Severe Sepsis. Must meet 1: [] Lactate = or > 4 or [] SBP < 90 or MAP < 65 for at least two readings in the first hour after fluid bolus administration [] No criteria met for Septic Shock. No data found. Recent Labs 02/19/24 0410 02/19/24 0814 02/19/24 1614 WBC 11.5* -- -- LACTATE 3.3* 1.3 -- CREATININE 6.67* -- 3.12* BILITOT 1.1 -- 1.1 PLT 472* -- -- Sepsis Identified at 0815 hours. Fluid Resuscitation Rational: Due to concern for fluid overload and renal failure ordered less than 30cc/kg actual body weight. Actual fluid amount given: 0 mL Infection Source: Pulmonary - Community Acquired Reassessment Exam: Not applicable. Patient does not have Septic Shock. Radha Kevin, - delirium precautions: increase activity and limit nighttime disturbances - DVT prophylaxis: heparin Complexity: Acute illness or injury posing a threat to life or body function (HIGH). Risk: Admission to hospital-level care was considered or occurred (HIGH). Advance Directive: Prior Anticipated Discharge - Date - 02/20 - Location - Home with Home Health Care? - Pending the following - clinical improvement Total time spent (which include face to face and non face to face encounters) : minutes. Toxic drug monitoring/narrow therapeutic index drug monitoring : # Drug name : # Route administered : # Method of monitoring : Extended Emergency Contact Information Primary Emergency Contact: Edward Ruggiero Mobile Relation: Significant Other Preferred language: Cambodian Technical Coordinator needed? No Secondary Emergency Contact: Mayur Matthews Mobile Relation: [place] [employer] Apoorva Gonzalez : 1950 Primary Care Physician: Roxie Spain The patient and/or family/surrogate voluntarily agreed to participate in ACP services. Patient s cognitive capacity: alert and oriented Code Status: [x_] [FULL CODE - Continue all advanced life support: CPR,intubation,invasive procedures] [_] [DNR-CCA - DO NOT do CPR, intubation] [_] [DNR-CDL SERVICE TECHNICIAN - Comfort care only] [_] DNR form [was/was not] signed Summary of discussion: The patient health care POA/ surrogate is the following: significant other Edward Ruggiero and grandson Mayur Matthews ( c/s SW to assist with POA paperwork) . [Condition that instigated the ACP on this DOS, relevant PMH, functional status, goals of care, and whom this was discussed with including names and relationship to the patient, and any relevant advance care documentation discussion] I answered all the patient/family questions that I could within the range and scope of the current medical situation. We discussed the medical conditions, risks, benefits, outcomes, and goals of care at this time for the patient's medical issues at hand in the face of the patient's chronic issues and current presentation. Total time spent: 6 minutes were spent discussing the patient's resuscitation status, advance care planning, and end of life care, with patient and/or family/surrogate. Radha Kevin DO Division of Hospitalist Medicine Acute care [facility] [place] [facility] Work Phone: 02-19-2024 History and physical note Attending History and Physical Admit Date: 02/19/2024 PCP: Roxie Spain CHIEF COMPLAINT: Chief Complaint Patient presents with Shortness of Breath Pt arrived SOB, missed HD today. EMS found pt 50% on RA. Denies chest pain. Pt is T// HD Reason for Admission: acute respiratory failure History Obtained From: patient, chart HISTORY OF PRESENT ILLNESS: Apoorva is a 73 y.o. female with past medical history significant for HTN, ESRD on HD (//), HTN, hx seizure ( 2021 a/w HTN encephalopathy; not currently on anti-epileptic therapy) Recently admitted here 01/18 -01/24 for anemia 2/2 descending colonic bleed with + tagged RBC scan , but No source of bleed was found when IR tried to embolize. C-scope with diverticulosis and evidence of diverticular spasm, but no source of bleeding. Received blood transfusion Apoorva reports she has been experiencing cough with clear sputum since she was discharged from the hospital last month. She also reports worsening fatigue Says that her BP went up yesterday and her vision got blurry as it usually does when her BP goes up. She felt progressively more short of breath, hypertensive and anxious and called paramedics She was hypoxic down to 54% on RA per EMS. placed on Bipap, started on nitroglycerin ggt, given IV Lasix 80 mg with improvement and was weaned to 6 L In ED: HT 103, RR 35, Temp 184/70 WBC 11.5, lactate 3.3, BNP 21,574, Alk phos 131, AST 105, ALT 50, Nz = 134, K = 5.2, CO2 21, AG 18, Ca 8.2 , Hg = 9.2 === 02/19/24 === XR CHEST 1 VIEW Extensive patchy bilateral pulmonary consolidation, which may be due to alveolar edema versus pneumonia. Moderate bilateral pleural effusions. At the time of my evaluation patient is undergoing HD in ED room. Reports feeling a little better ( on 6 L NC. Normally never on oxygen) but not feeling normal yet everything is off and feeling achy all over. Denies chest pain I discussed with ED provider and agree with hospital admission Past Medical History: Past Medical History: Diagnosis Date Chronic kidney disease (CKD) Hemodialysis patient (CMS/HCC) (HCC) Wednesday, , Wednesday History of blood transfusion 02/27/2022 Hypertension Seizure (HCC) Developed seizure-like activity on 02/24 during hospital admission Past Surgical History: Past Surgical History: Procedure Laterality Date AV FISTULA PLACEMENT Left 08/07/2022 COLONOSCOPY N/A 01/25/2024 Performed by Chrissy Gilman MD at [facility] ENDOSCOPY IR CVC TUNNELED DIALYSIS CATHETER PLACEMENT 02/27/2022 IR CVC TUNNELED CATHETER PLACEMENT 02/27/2022 Candis Andrade MD [facility] SPECIAL PROCEDURES IR EMBOLIZATION 01/24/2024 IR EMBOLIZATION 01/24/2024 Jovan Glynn MD [facility] SPECIAL PROCEDURES Social History: Social History Socioeconomic History Marital status: Spouse name: Not on file Number of children: Not on file Years of education: Not on file Highest education level: Not on file Occupational History Not on file Tobacco Use Smoking status: Never Smokeless tobacco: Never Vaping Use Vaping status: Never Used Substance and Sexual Activity Alcohol use: Yes Alcohol/week: 2.0 standard drinks of alcohol Types: 2 Glasses of wine per week Comment: weekly Drug use: Never Sexual activity: Not on file Other Topics Concern Not on file Social History Narrative Not on file Social Drivers of Health Financial Resource Strain: Not on file Food Insecurity: Not on file Transportation Needs: No Transportation Needs (02/22/2022) PRAPARE - Transportation Lack of Transportation (Medical): No Lack of Transportation (Non-Medical): No Physical Activity: Not on file Stress: Not on file Social Connections: Not on file Intimate Partner Violence: Not At Risk (08/07/2022) Humiliation, Afraid, Rape, and Kick questionnaire Fear of Current or Ex-Partner: No Emotionally Abused: No Physically Abused: No Sexually Abused: No Housing Stability: Not on file Family History: Family History Problem Relation Name Age of Onset Dementia Mother Stroke Father Breast cancer Cousin Medications Prior to Admission: No current facility-administered medications on file prior to encounter. Current Outpatient Medications on File Prior to Encounter Medication Sig Dispense Refill amLODIPine (Norvasc) 5 MG tablet Take 1 tablet (5 mg) by mouth daily. (Patient taking differently: Take 10 mg by mouth daily.) 30 tablet 11 ASTRAGALUS PO Take 1 mL by mouth 3 times daily. atorvastatin (Lipitor) 40 MG tablet Take 1 tablet (40 mg) by mouth Nightly. 30 tablet 11 calcium acetate (Phoslo) 667 MG tablet Take 1 tablet by mouth in the morning and 1 tablet at noon and 1 tablet in the evening. Take with meals. cholecalciferol (Vitamin D-3) 125 MCG (5000 UT) capsule Take 5,000 Units by mouth daily. levETIRAcetam (Keppra) 500 MG tablet Take 1 tablet (500 mg) by mouth daily. 30 tablet 1 NON FORMULARY Take 1 mL by mouth 3 times daily. Kidney tonic NON FORMULARY Take 1 capsule by mouth daily. [place] omega-3 (Fish Oil) 1000 MG capsule Take 1,000 mg by mouth daily. Thiamine HCl (vitamin B-1) 250 MG tablet Take 250 mg by mouth daily. Allergies: No Known Allergies REVIEW OF SYSTEMS: Review of Systems Constitutional: Positive for fatigue. Negative for chills and fever. Eyes: Positive for visual disturbance (improving). Respiratory: Positive for cough. Cardiovascular: Negative for chest pain and leg swelling. Gastrointestinal: Negative for constipation and diarrhea. Last BM 02/17 Genitourinary: Negative for dysuria. Musculoskeletal: Positive for myalgias. Skin: Negative for rash. Neurological: Positive for weakness. Psychiatric/Behavioral: Positive for sleep disturbance. Vitals: BP (!) 165/80 Pulse 83 Resp 20 SpO2 96% BMI Classification: Normal Weight (BMI 18.5-24.9) Pulse Ox: SpO2 Av.3 % Min: 95 % Max: 100 % Supplemental O2: O2 Flow Rate (L/min): 6 L/min PHYSICAL EXAM: Physical Exam Vitals and nursing note reviewed. Constitutional: General: She is not in acute distress. Appearance: She is ill-appearing. Interventions: Nasal cannula in place. HENT: Head: Normocephalic and atraumatic. Mouth/Throat: Mouth: Mucous membranes are moist. Eyes: Extraocular Movements: Extraocular movements intact. Cardiovascular: Rate and Rhythm: Normal rate and regular rhythm. Pulmonary: Effort: Pulmonary effort is normal. No respiratory distress. Breath sounds: Rales (few) present. Abdominal: General: Bowel sounds are normal. There is no distension. Tenderness: There is no abdominal tenderness. Musculoskeletal: General: No swelling or tenderness. Cervical back: Neck supple. Skin: General: Skin is warm and dry. Neurological: General: No focal deficit present. Mental Status: She is alert. Psychiatric: Mood and Affect: Mood normal. DATA: CBC: Recent Labs 02/19/2440902/19/24621 WBC 11.5* -- RBC 3.00* -- HGB 8.7 9.2* 8.8 HCT 30.6* -- MCV 102.0* -- RDW 18.0* -- PLT 472* -- BMP: Recent Labs 02/19/24409 NA 134* K 5.2* CL 95* CO2 21* BUN 44* CREATININE 6.67* GLUCOSE 193* CALCIUM 8.2* ANIONGAP 18* LIVER PROFILE: Recent Labs 02/19/24409 AST 105* ALT 50* BILITOT 1.1 ALKPHOS 131* PROT 7.3 PT/INR: No results for input(s): PROTIME, INR in the last 72 hours. CARDIAC ENZYMES: Recent Labs 02/19/24409 TROPONINI 0.027 Procalcitonin: No results found for: PROCAL Urine Culture: No results found for this or any previous visit. COVID-19 PCR: No results for input(s): COVID19 in the last 72 hours. I reviewed: [x] laboratory results [x] radiographic results At the time of today's encounter. Pt was advised of the results. Data: (CAT1) Reviewed 3 or more notes from different specialty or health system (each=1). (CAT1) Reviewed 2 labs/studies ordered by another provider not previously counted (each=1, panels count as 1). (CAT1) Ordered 3 or more new labs and/or studies (each=1, panels count as 1). (CAT3) Discussed with ED provider, Dr. Huffman, regarding patient's eval & mgmt thus far, and agree with the plan for hospitalization. (LOW: 2x CAT1 or independent historian MOD: 3x CAT1 or 1x CAT3 EXTENSIVE: 3x CAT1 and 1x CAT3) Assessment Discussed management with the ED provider and agree with hospitalization. Acute, acute on chronic, unstable/uncontrolled chronic problems/diagnoses: Sepsis due to pneumonia - HR 103, RR35 - lactate wnl - check procal, Bcx, sputum Cx - Ceftriaxone + Azithro --> Ceftriaxone - no fluid bolus d/t pulm edema Acute respiratory failure - suspect flush pum edema in setting of ESRD and hypertension and concern for pneumonia - breathing is improved with nitroglycerin ggt , bipap and volume removal with HD/ultrafiltration - Ceftriaxone + azithromycin pending sputum Culture, urine antigens --> Uag negative -> stop azithro - RVP negative HTN urgency - BP improved - cont home norvasc Hyponatremia - cont HD per nephrology Elevated LFTs - hold lipitor and monitor Elevated troponin - demand mediated - resolved - no chest pain Stable chronic problems affecting care, new non-acute diagnoses: ESRD - HD per nephrology, appreciate input Anemia, recent GIB - cont PPI H/o seizure - no longer on AED - on chart review she had a seizure a/w hypertensive encephalopathy in 2021 Plan As a result of the above findings & factors, the following mgmt was pursued: - as above - am labs, replace lytes prn - PT/OT/CM/SW SEP-1 CORE MEASURE DATA SIRS Criteria Sepsis Criteria Severe Sepsis Criteria Septic Shock Criteria Must meet 2: [] Temperature > 100.4 F (38 C) or < 96.8 F (36 C) [x] HR > 90 [x] RR > 20 [] WBC > 12 or < 4 or 10% bands Must be confirmed or suspected to move forward with diagnosis of sepsis. Must select at least one: [x] Bacterial Infection Confirmed or Suspected. [] Viral Infection Confirmed or Suspected. [] No infection present. Patient does not meet criteria for Sepsis. Must meet 1: [] Lactate > 2 or [] Signs of Organ Dysfunction: - SBP < 90 or MAP < 65 - Altered mental status - Creatinine > 2 or increased from baseline - Urine Output < 0.5 ml/kg/hr - Bilirubin > 2 - INR > 1.5 - Platelets < 100,000 - Acute Respiratory Failure as evidenced by new need for NIPPV or mechanical ventilation [] No criteria met for Severe Sepsis. Must meet 1: [] Lactate = or > 4 or [] SBP < 90 or MAP < 65 for at least two readings in the first hour after fluid bolus administration [] No criteria met for Septic Shock. No data found. Recent Labs 02/19/24 0410 02/19/24 0814 02/19/24 1614 WBC 11.5* -- -- LACTATE 3.3* 1.3 -- CREATININE 6.67* -- 3.12* BILITOT 1.1 -- 1.1 PLT 472* -- -- Sepsis Identified at 0815 hours. Fluid Resuscitation Rational: Due to concern for fluid overload and renal failure ordered less than 30cc/kg actual body weight. Actual fluid amount given: 0 mL Infection Source: Pulmonary - Community Acquired Reassessment Exam: Not applicable. Patient does not have Septic Shock. Radha Kevin DO - delirium precautions: increase activity and limit nighttime disturbances - DVT prophylaxis: heparin Complexity: Acute illness or injury posing a threat to life or body function (HIGH). Risk: Admission to hospital-level care was considered or occurred (HIGH). Advance Directive: Prior Anticipated Discharge - Date - 02/20 - Location - Home with Home Health Care? - Pending the following - clinical improvement Total time spent (which include face to face and non face to face encounters) : minutes. Toxic drug monitoring/narrow therapeutic index drug monitoring : # Drug name : # Route administered : # Method of monitoring : Extended Emergency Contact Information Primary Emergency Contact: Edward Ruggiero Mobile Relation: Significant Other Preferred language: Cambodian Technical Coordinator needed? No Secondary Emergency Contact: Mayur Matthews Mobile Relation: Grandchild [employer] Apoorva Navarro [place] : 1950 Primary Care Physician: Roxie Spain The patient and/or family/surrogate voluntarily agreed to participate in ACP services. Patient s cognitive capacity: alert and oriented Code Status: [x_] [FULL CODE - Continue all advanced life support: CPR,intubation,invasive procedures] [_] [DNR-CCA - DO NOT do CPR, intubation] [_] [DNR-CDL SERVICE TECHNICIAN - Comfort care only] [_] DNR form [was/was not] signed Summary of discussion: The patient health care POA/ surrogate is the following: significant other Edward Ruggiero and bernadine Matthews ( c/s SW to assist with POA paperwork) . [Condition that instigated the ACP on this DOS, relevant PMH, functional status, goals of care, and whom this was discussed with including names and relationship to the patient, and any relevant advance care documentation discussion] I answered all the patient/family questions that I could within the range and scope of the current medical situation. We discussed the medical conditions, risks, benefits, outcomes, and goals of care at this time for the patient's medical issues at hand in the face of the patient's chronic issues and current presentation. Total time spent: 6 minutes were spent discussing the patient's resuscitation status, advance care planning, and end of life care, with patient and/or family/surrogate. Radha Kevin DO [facility] documented in this encounter [facility] 02-19-2024 Physician Emergency department Note Emergency Department Encounter [facility] EMERGENCY DEPT Patient: Apoorva Gonzalez : 1950 Date of Evaluation: 02/19/2024 ED Supervising Physician: Cassie Mace DO I personally evaluated Apoorva Gonzalez and made/approved the management plan and take responsibility for the patient management. This will serve as my Supervisory note and shared attestation. I did perform a substantive portion of the visit including all aspects of the Medical Decision Making. I wore appropriate PPE for the entirety of this encounter. In brief, Apoorva Gonzalez is a 73 y.o. with past medical history of hypertension, end-stage renal disease on dialysis Wednesday that presents to the emergency department for dyspnea. Patient reports worsening dyspnea over the past 2 days. Per EMS, patient was in respiratory distress and saturating 54% on room air, incremented to 90% on nonrebreather. Patient states last hemodialysis on , completed full treatment and still makes some urine. Gen: In respiratory distress HEENT: Head atraumatic. Eyes no discharge, nonicteric and non injected Heart: Tachycardic, regular rhythm Lungs: Diffuse rales, tachypneic, retracting, in respiratory distress Abd: mildly distended otherwise soft and nontender Extremities: Palpable radial and DP. No edema Brief ED course/MDM: Upon arrival to the ED, patient in respiratory distress desaturating to mid 80s on nonrebreather, tachypneic, and tachycardic. Hypertensive 220/100. Diffuse rales concerning for flash pulmonary edema. Patient started on BiPAP and nitroglycerin gtt. chest x-ray fluid overloaded with pulmonary edema. Lactate elevated 3.3 and mild leukocytosis, however I suspect this is likely due to severe hypoxia as patient is denying any fever/chills, cough over the past couple of days. Will defer antibiotics at this time. Renal function at baseline. Potassium 5.2. No EKG changes. Patient was given Lasix 80 mg IV as she is still making urine. Plan for admission ICU versus medicine if able to wean off of BiPAP. All diagnostic, treatment, and disposition decisions were made by myself in conjunction with the Resident. I also supervised saavedra portions of any procedures performed by the Resident. For all further details of the patient's emergency department visit, please see their documentation. (Comment: Please note this report has been produced using speech recognition software and may contain errors related to that system including errors in grammar, punctuation, and spelling, as well as words and phrases that may be inappropriate. If there are any questions or concerns please feel free to contact the dictating provider for clarification.) Cassie Mace DO [employer] Cassie Mace DO 02/19/24 0533 [employer] Phone: 02-12-2024 Emergency department Note EMERGENCY DEPARTMENT ENCOUNTER Pt Name: Apoorva Gonzalez Birthdate 1950 Date of evaluation: 02/12/2024 ED Provider: Marcus Ragland DO CHIEF COMPLAINT Chief Complaint Patient presents with Hypertension Treated with medication, pt took it this morning and was high. Pt was able to ambulate without difficulty. Alert and oriented x's 4 HISTORY OF PRESENT ILLNESS (Location/Symptom, Timing/Onset, Context/Setting, Quality, Duration, Modifying Factors, Severity) Note limiting factors. I wore appropriate PPE for the entirety of this encounter. HPI Apoorva Gonzalez is a 73 y.o. female who presents to the emergency department with elevated blood pressure at home. States last night she got very anxious and felt her chest pounding. Woke up this morning with elevated blood pressure in the 200s systolic. Took her oral antihypertensives and went to dialysis. States she is currently asymptomatic but she was still hypertensive after dialysis. Took another blood pressure medication just prior to arrival and presented to the emergency room for evaluation. States she does feel significantly improved after getting dialyzed. Blood pressure currently 143/71. Denied any pressure-like chest pain last night or today. No radiation of symptoms. No associated shortness of breath nausea vomiting or diaphoresis. Nursing Notes were reviewed. REVIEW OF SYSTEMS 14 systems reviewed and otherwise acutely negative except as in the [facility]. PAST MEDICAL HISTORY Past Medical History: Diagnosis Date Chronic kidney disease (CKD) Hemodialysis patient (CMS/HCC) (HCC) Wednesday, , Wednesday History of blood transfusion 02/27/2022 Hypertension Seizure ([facility]) Developed seizure-like activity on 02/24 during hospital admission SURGICAL HISTORY Past Surgical History: Procedure Laterality Date AV FISTULA PLACEMENT Left 08/07/2022 COLONOSCOPY N/A 01/25/2024 Performed by Chrissy Gilman MD at [facility] ENDOSCOPY IR CVC TUNNELED DIALYSIS CATHETER PLACEMENT 02/27/2022 IR CVC TUNNELED CATHETER PLACEMENT 02/27/2022 Candis Andrade MD [facility] SPECIAL PROCEDURES IR EMBOLIZATION 01/24/2024 IR EMBOLIZATION 01/24/2024 Jovan Glynn MD [facility] SPECIAL PROCEDURES CURRENT MEDICATIONS Discharge Medication List as of 02/12/2024 2:30 PM CONTINUE these medications which have NOT CHANGED Details amLODIPine (Norvasc) 5 MG tablet Take 1 tablet (5 mg) by mouth daily., Starting Wed03/02/2022, Until Wed03/02/2023, Normal ASTRAGALUS PO Take 1 mL by mouth 3 times daily., Historical Med atorvastatin (Lipitor) 40 MG tablet Take 1 tablet (40 mg) by mouth Nightly., Starting Wed03/02/2022, Until Wed03/02/2023, Normal calcium acetate (Phoslo) 667 MG tablet Take 1 tablet by mouth in the morning and 1 tablet at noon and 1 tablet in the evening. Take with meals., Starting Wed07/01/2022, Historical Med cholecalciferol (Vitamin D-3) 125 MCG (5000 UT) capsule Take 5,000 Units by mouth daily., Historical Med levETIRAcetam (Keppra) 500 MG tablet Take 1 tablet (500 mg) by mouth daily., Starting 03/02/2022, Until Wed08/26/2022, Normal !! NON FORMULARY Take 1 mL by mouth 3 times daily. Kidney tonic, Historical Med !! NON FORMULARY Take 1 capsule by mouth daily. [place], Historical Med omega-3 (Fish Oil) 1000 MG capsule Take 1,000 mg by mouth daily., Historical Med Thiamine HCl (vitamin B-1) 250 MG tablet Take 250 mg by mouth daily., Historical Med !! - Potential duplicate medications found. Please discuss with provider. ALLERGIES Patient has no known allergies. FAMILY HISTORY Family History Problem Relation Name Age of Onset Dementia Mother Stroke Father Breast cancer Cousin SOCIAL HISTORY Social History Socioeconomic History Marital status: Tobacco Use Smoking status: Never Smokeless tobacco: Never Vaping Use Vaping status: Never Used Substance and Sexual Activity Alcohol use: Yes Alcohol/week: 2.0 standard drinks of alcohol Types: 2 Glasses of wine per week Comment: weekly Drug use: Never Social Drivers of Health Transportation Needs: No Transportation Needs (02/22/2022) PRAPARE - Transportation Lack of Transportation (Medical): No Lack of Transportation (Non-Medical): No Intimate Partner Violence: Not At Risk (08/07/2022) Humiliation, Afraid, Rape, and Kick questionnaire Fear of Current or Ex-Partner: No Emotionally Abused: No Physically Abused: No Sexually Abused: No SCREENINGS PHYSICAL EXAM ED Triage Vitals Temp Heart Rate Resp BP 02/12/24 1156 02/12/24 1156 02/12/24 1156 02/12/24 1156 36.6 C (97.9 F) 82 14 (!) 143/71 SpO2 Temp Source Heart Rate Source Patient Position 02/12/24 1156 02/12/24 1156 02/12/24 1156 02/12/24 1158 100 % Temporal Monitor Sitting BP Location FiO2 (%) 02/12/24 1158 -- Right arm CONSTITUTIONAL: AOx4, no apparent distress, appears stated age HEAD: normocephalic, atraumatic EYES: PERRL, EOMI ENT: moist mucous membranes, uvula midline NECK: supple, symmetric BACK: symmetric LUNGS: clear to auscultation bilaterally CARDIOVASCULAR: regular rate and rhythm ABDOMEN: soft, non-tender, non-distended with normal active bowel sounds : deferred NEUROLOGIC: MAEx4, no focal sensory or motor deficits MUSCULOSKELETAL: no clubbing, cyanosis or edema, palpable thrill left upper extremity AV fistula SKIN: no exposed rash DIAGNOSTIC RESULTS Procedures/EKG: EKG was reviewed by myself. Physician EKG interpretation can be found in [facility] RADIOLOGY (Per Emergency Physician): Interpretation per the Radiologist below, if available at the time of this note: No orders to display ED BEDSIDE ULTRASOUND: Performed by ED Physician - none LABS: Labs Reviewed CBC (HEMOGRAM) - Abnormal Result Value Auto WBC 11.5 (*) RBC 2.47 (*) Hemoglobin 7.6 (*) Hematocrit 23.7 (*) MCV 96.0 MCH 30.8 MCHC 32.1 RDW 16.3 (*) Platelets 385 MPV 11.0 BASIC METABOLIC PANEL - Abnormal SODIUM 134 (*) POTASSIUM 4.0 CHLORIDE 90 (*) CARBON DIOXIDE 32 (*) UREA NITROGEN 11 CREATININE 2.71 (*) GLUCOSE 92 CALCIUM 8.7 ANION GAP 12 eGFR 18.0 (*) Narrative: Slightly Hemolyzed. Interpret K+ with caution. TROPONIN I - Normal TROPONIN I 0.030 Narrative: Slightly Hemolyzed. Interpret Troponin I with caution. Patients with high levels of Biotin oral intake (ie >5 mg/day) may have falsely decreased Troponin levels. All other labs were within normal range or not returned as of this dictation. EMERGENCY DEPARTMENT COURSE and DIFFERENTIAL DIAGNOSIS/MDM: Vitals: Vitals: 02/12/24 1156 02/12/24 1421 BP: (!) 143/71 (!) 153/71 Pulse: 82 87 Resp: 14 14 Temp: 36.6 C (97.9 F) 36.5 C (97.7 F) TempSrc: Temporal Temporal SpO2: 100% 96% EMERGENCY DEPARTMENT COURSE and DIFFERENTIAL DIAGNOSIS/MDM: Vitals: Vitals: 02/12/24 1156 02/12/24 1421 BP: (!) 143/71 (!) 153/71 Pulse: 82 87 Resp: 14 14 Temp: 36.6 C (97.9 F) 36.5 C (97.7 F) TempSrc: Temporal Temporal SpO2: 100% 96% The patient presented with a chief complaint of some elevated blood pressure readings today before dialysis. Also had some anxiety and palpitations last night.. The differential diagnosis associated with this patient's presentation includes hypertension, ACS, electrolyte abnormality, is feeling asymptomatic now after dialysis.. Our workup consisted of ordering/reviewing lab work which shows a stable hemoglobin at 7.6. BMP also stable with her known chronic kidney disease on dialysis. Troponin was normal. No signs of endorgan damage low suspicion for ACS as she is asymptomatic after dialysis. Encouraged to continue outpatient PCP follow-up. Diagnoses as of 02/12/24 1448 Hypertension, unspecified type Diagnostic tests considered but not performed: External records reviewed: Inpatient notes discharge summary reviewed from 01/19/2000 before the patient was admitted for lower GI bleed Diagnostics interpreted by me: none Discussions with other clinicians: none Chronic conditions impacting care: CKD on dialysis Social determinants of health affecting care: none ED Medications managed: Medications - No data to display CONSULTS: None PROCEDURES: Unless otherwise noted below, none Procedures Patients symptoms are consistent with sepsis, severe sepsis, or septic shock (If yes use .sepsiscoremeasure): FINAL IMPRESSION 1. Hypertension, unspecified type DISPOSITION/PLAN dc PATIENT REFERRED TO: Roxie Spain [address] [facility] [id number] Schedule an appointment as soon as possible for a visit DISCHARGE MEDICATIONS: Discharge Medication List as of 02/12/2024 2:30 PM (Comment: Please note this report has been produced using speech recognition software and may contain errors related to that system including errors in grammar, punctuation, and spelling, as well as words and phrases that may be inappropriate. If there are any questions or concerns please feel free to contact the dictating provider for clarification.) Marcus Ragland DO (electronically signed) Emergency Medicine Provider Marcus Ragland DO 02/12/24 1448 Treated with medication, pt took it this morning and was high. Pt was able to ambulate without difficulty. Alert and oriented x's 4 documented in this encounter [facility] 02-12-2024 Emergency department Triage note Treated with medication, pt took it this morning and was high. Pt was able to ambulate without difficulty. Alert and oriented x's 4 [facility] 02-12-2024 Physician Emergency department Note EMERGENCY DEPARTMENT ENCOUNTER Pt Name: Apoorva Gonzalez Birthdate 1950 Date of evaluation: 02/12/2024 ED Provider: Marcus Ragland DO CHIEF COMPLAINT Chief Complaint Patient presents with Hypertension Treated with medication, pt took it this morning and was high. Pt was able to ambulate without difficulty. Alert and oriented x's 4 HISTORY OF PRESENT ILLNESS (Location/Symptom, Timing/Onset, Context/Setting, Quality, Duration, Modifying Factors, Severity) Note limiting factors. I wore appropriate PPE for the entirety of this encounter. HPI Apoorva Gonzalez is a 73 y.o. female who presents to the emergency department with elevated blood pressure at home. States last night she got very anxious and felt her chest pounding. Woke up this morning with elevated blood pressure in the 200s systolic. Took her oral antihypertensives and went to dialysis. States she is currently asymptomatic but she was still hypertensive after dialysis. Took another blood pressure medication just prior to arrival and presented to the emergency room for evaluation. States she does feel significantly improved after getting dialyzed. Blood pressure currently 143/71. Denied any pressure-like chest pain last night or today. No radiation of symptoms. No associated shortness of breath nausea vomiting or diaphoresis. Nursing Notes were reviewed. REVIEW OF SYSTEMS 14 systems reviewed and otherwise acutely negative except as in the [facility]. PAST MEDICAL HISTORY Past Medical History: Diagnosis Date Chronic kidney disease (CKD) Hemodialysis patient (CMS/HCC) (HCC) Wednesday, , Wednesday History of blood transfusion 02/27/2022 Hypertension Seizure ([facility]) Developed seizure-like activity on 02/24 during hospital admission SURGICAL HISTORY Past Surgical History: Procedure Laterality Date AV FISTULA PLACEMENT Left 08/07/2022 COLONOSCOPY N/A 01/25/2024 Performed by Chrissy Gilman MD at [facility] ENDOSCOPY IR CVC TUNNELED DIALYSIS CATHETER PLACEMENT 02/27/2022 IR CVC TUNNELED CATHETER PLACEMENT 02/27/2022 Candis Andrade MD [facility] SPECIAL PROCEDURES IR EMBOLIZATION 01/24/2024 IR EMBOLIZATION 01/24/2024 Jovan Glynn MD [facility] SPECIAL PROCEDURES CURRENT MEDICATIONS Discharge Medication List as of 02/12/2024 2:30 PM CONTINUE these medications which have NOT CHANGED Details amLODIPine (Norvasc) 5 MG tablet Take 1 tablet (5 mg) by mouth daily., Starting Wed03/02/2022, Until Wed03/02/2023, Normal ASTRAGALUS PO Take 1 mL by mouth 3 times daily., Historical Med atorvastatin (Lipitor) 40 MG tablet Take 1 tablet (40 mg) by mouth Nightly., Starting Wed03/02/2022, Until Wed03/02/2023, Normal calcium acetate (Phoslo) 667 MG tablet Take 1 tablet by mouth in the morning and 1 tablet at noon and 1 tablet in the evening. Take with meals., Starting Wed07/01/2022, Historical Med cholecalciferol (Vitamin D-3) 125 MCG (5000 UT) capsule Take 5,000 Units by mouth daily., Historical Med levETIRAcetam (Keppra) 500 MG tablet Take 1 tablet (500 mg) by mouth daily., Starting Wed03/02/2022, Until Wed08/26/2022, Normal !! NON FORMULARY Take 1 mL by mouth 3 times daily. Kidney tonic, Historical Med !! NON FORMULARY Take 1 capsule by mouth daily. [place], Historical Med omega-3 (Fish Oil) 1000 MG capsule Take 1,000 mg by mouth daily., Historical Med Thiamine HCl (vitamin B-1) 250 MG tablet Take 250 mg by mouth daily., Historical Med !! - Potential duplicate medications found. Please discuss with provider. ALLERGIES Patient has no known allergies. FAMILY HISTORY Family History Problem Relation Name Age of Onset Dementia Mother Stroke Father Breast cancer Cousin SOCIAL HISTORY Social History Socioeconomic History Marital status: Tobacco Use Smoking status: Never Smokeless tobacco: Never Vaping Use Vaping status: Never Used Substance and Sexual Activity Alcohol use: Yes Alcohol/week: 2.0 standard drinks of alcohol Types: 2 Glasses of wine per week Comment: weekly Drug use: Never Social Drivers of Health Transportation Needs: No Transportation Needs (02/22/2022) PRAPARE - Transportation Lack of Transportation (Medical): No Lack of Transportation (Non-Medical): No Intimate Partner Violence: Not At Risk (08/07/2022) Humiliation, Afraid, Rape, and Kick questionnaire Fear of Current or Ex-Partner: No Emotionally Abused: No Physically Abused: No Sexually Abused: No SCREENINGS PHYSICAL EXAM ED Triage Vitals Temp Heart Rate Resp BP 02/12/24 1156 02/12/24 1156 02/12/24 1156 02/12/24 1156 36.6 C (97.9 F) 82 14 (!) 143/71 SpO2 Temp Source Heart Rate Source Patient Position 02/12/24 1156 02/12/24 1156 02/12/24 1156 02/12/24 1158 100 % Temporal Monitor Sitting BP Location FiO2 (%) 02/12/24 1158 -- Right arm CONSTITUTIONAL: AOx4, no apparent distress, appears stated age HEAD: normocephalic, atraumatic EYES: PERRL, EOMI ENT: moist mucous membranes, uvula midline NECK: supple, symmetric BACK: symmetric LUNGS: clear to auscultation bilaterally CARDIOVASCULAR: regular rate and rhythm ABDOMEN: soft, non-tender, non-distended with normal active bowel sounds : deferred NEUROLOGIC: MAEx4, no focal sensory or motor deficits MUSCULOSKELETAL: no clubbing, cyanosis or edema, palpable thrill left upper extremity AV fistula SKIN: no exposed rash DIAGNOSTIC RESULTS Procedures/EKG: EKG was reviewed by myself. Physician EKG interpretation can be found in [facility] RADIOLOGY (Per Emergency Physician): Interpretation per the Radiologist below, if available at the time of this note: No orders to display ED BEDSIDE ULTRASOUND: Performed by ED Physician - none LABS: Labs Reviewed CBC (HEMOGRAM) - Abnormal Result Value Auto WBC 11.5 (*) RBC 2.47 (*) Hemoglobin 7.6 (*) Hematocrit 23.7 (*) MCV 96.0 MCH 30.8 MCHC 32.1 RDW 16.3 (*) Platelets 385 MPV 11.0 BASIC METABOLIC PANEL - Abnormal SODIUM 134 (*) POTASSIUM 4.0 CHLORIDE 90 (*) CARBON DIOXIDE 32 (*) UREA NITROGEN 11 CREATININE 2.71 (*) GLUCOSE 92 CALCIUM 8.7 ANION GAP 12 eGFR 18.0 (*) Narrative: Slightly Hemolyzed. Interpret K+ with caution. TROPONIN I - Normal TROPONIN I 0.030 Narrative: Slightly Hemolyzed. Interpret Troponin I with caution. Patients with high levels of Biotin oral intake (ie >5 mg/day) may have falsely decreased Troponin levels. All other labs were within normal range or not returned as of this dictation. EMERGENCY DEPARTMENT COURSE and DIFFERENTIAL DIAGNOSIS/MDM: Vitals: Vitals: 02/12/24 1156 02/12/24 1421 BP: (!) 143/71 (!) 153/71 Pulse: 82 87 Resp: 14 14 Temp: 36.6 C (97.9 F) 36.5 C (97.7 F) TempSrc: Temporal Temporal SpO2: 100% 96% EMERGENCY DEPARTMENT COURSE and DIFFERENTIAL DIAGNOSIS/MDM: Vitals: Vitals: 02/12/24 1156 02/12/24 1421 BP: (!) 143/71 (!) 153/71 Pulse: 82 87 Resp: 14 14 Temp: 36.6 C (97.9 F) 36.5 C (97.7 F) TempSrc: Temporal Temporal SpO2: 100% 96% The patient presented with a chief complaint of some elevated blood pressure readings today before dialysis. Also had some anxiety and palpitations last night.. The differential diagnosis associated with this patient's presentation includes hypertension, ACS, electrolyte abnormality, is feeling asymptomatic now after dialysis.. Our workup consisted of ordering/reviewing lab work which shows a stable hemoglobin at 7.6. BMP also stable with her known chronic kidney disease on dialysis. Troponin was normal. No signs of endorgan damage low suspicion for ACS as she is asymptomatic after dialysis. Encouraged to continue outpatient PCP follow-up. Diagnoses as of 02/12/24 1448 Hypertension, unspecified type Diagnostic tests considered but not performed: External records reviewed: Inpatient notes discharge summary reviewed from 01/19/2000 before the patient was admitted for lower GI bleed Diagnostics interpreted by me: none Discussions with other clinicians: none Chronic conditions impacting care: CKD on dialysis Social determinants of health affecting care: none ED Medications managed: Medications - No data to display CONSULTS: None PROCEDURES: Unless otherwise noted below, none Procedures Patients symptoms are consistent with sepsis, severe sepsis, or septic shock (If yes use .sepsiscoremeasure): FINAL IMPRESSION 1. Hypertension, unspecified type DISPOSITION/PLAN dc PATIENT REFERRED TO: Roxie Spain [address] [place] [address] Schedule an appointment as soon as possible for a visit DISCHARGE MEDICATIONS: Discharge Medication List as of 02/12/2024 2:30 PM (Comment: Please note this report has been produced using speech recognition software and may contain errors related to that system including errors in grammar, punctuation, and spelling, as well as words and phrases that may be inappropriate. If there are any questions or concerns please feel free to contact the dictating provider for clarification.) Marcus Ragland DO (electronically signed) Emergency Medicine Provider Marcus Ragland DO 02/12/24 1448 [facility] 01-25-2024 History of Present illness Narrative [facility] Progress Note Nephrology following for ESRD. Events over night: Seen and examined while on iHD tolerating well BP 158/77 (BP Location: Right arm, Patient Position: Sitting) Pulse 107 Temp 36.6 C (97.9 F) (Temporal) Resp 18 Ht 1.626 m (5' 4) Wt 52.2 kg (115 lb) SpO2 99% BMI 19.74 kg/m Input / Output: 24 HR: Intake/Output Summary (Last 24 hours) at 01/25/2024 2309 Last data filed at 01/25/2024 1613 Gross per 24 hour Intake 500 ml Output -- Net 500 ml Physical Exam Alert and oriented x 3 NAD Neck: no JVD CV: RRR Lungs: CTA bilaterally Abd: soft, NT, ND Ext: no lower extremity edema Scheduled medications Continuous medications PRN medications Results from last 7 days Lab Units 01/25/24 0003 01/20/24 0348 01/19/24 1747 SODIUM mmol/L 136 < > 135 POTASSIUM mmol/L 4.6 < > 4.9 CHLORIDE mmol/L 101 < > 92* CO2 mmol/L 18* < > 30 BUN mg/dL 36* < > 47* CREATININE mg/dL 8.47* < > 7.70* CALCIUM mg/dL 8.3* < > 8.7 PROTEIN TOTAL g/dL -- -- 7.0 BILIRUBIN TOTAL mg/dL -- -- 0.5 ALK PHOS U/L -- -- 88 ALT U/L -- -- 14 AST U/L -- -- 23 GLUCOSE mg/dL 82 < > 146* < > = values in this interval not displayed. Results from last 7 days Lab Units 01/25/24 0003 01/24/24 0054 01/23/24 0504 MAGNESIUM mg/dL 2.2 2.0 2.1 Results from last 7 days Lab Units 01/25/24 0003 01/24/24 1454 01/24/24 0822 01/24/24 0054 01/23/24 0504 WBC AUTO 10*3/uL 15.1* -- -- 14.2* 13.8* HEMOGLOBIN g/dL 8.6* 7.7* 7.7* 6.4* 8.0* HEMATOCRIT % 26.4* 23.7* 23.0* 19.8* 24.7* PLATELETS 10*3/uL 400 -- -- 327 325 Assessment & Plan: Apoorva Gonzalez is a 73 y.o. female with hx including ESRD, HTN, seizure who presented with blood in stool. Nephrology following for ESRD. ESRD -patient on TTS schedule as outpatient -access: LUE AVG HTN -BP with acceptable control recently Volume -ultrafiltration with HD Electrolytes -hyperkalemia -mild with recent K at 4.4 -correction/stabilization with HD -hyponatremia -in setting of ESRD -mild with recent S Na at 136 -correction/stabilization with HD/UF Acid/base -stabilization with HD Anemia -acute blood loss -recent Hgb 8.0 -Fe/HODAN titration can be done as outpatient -transfuse PRN per primary CKD MBD -recent PO4 elevated at 6.4 -dialysis should help lower Plan: -seen on iHD today, continue HD on TTS schedule, Please message me through [facility] chat with any questions or concerns. Fabrizio Scott MD 01/25/2024 11:09 PM [facility] [address], [address] [place] [address] Office: [phone] Hospitalist Progress Note 01/25/2024 9:54 AM [phone]: Please page me for patient care issues. [phone]: Please page [facility] night Hospitalist for any issues. Subjective: Admit Date: 01/19/2024 PCP: Roxie Spain Room#: Endo Pool/NONE Interval History: 73 y.o. F with a PMHx significant for ESRD on HD (T//), HTN, hx seizures (not currently on anti-epileptic therapy) who was initially admitted to the [facility] 01/18 for anemia 2/2 descending colonic bleed. Received 2u pRBC day of admit. IR attempted to embolize, but was unable with the location. A femoral arterial sheath was left in place to stop the bleeding so she was transferred to the ICU. Required 1u pRBC transfusion overnight into the . She has remained stable throughout admission and her arterial sheath was removed 01/20 morning without complication. Patient transferred out of ICU 01/22 01/24 Patient seen and examined, patient back from colonoscopy denies lightheaded dizziness. Wants to eat Labs reviewed, discussed with TCC and nursing care plan reviewed Past Medical History: Past Medical History: Diagnosis Date Chronic kidney disease (CKD) Hemodialysis patient (CMS/HCC) (HCC) Wednesday, , Wednesday History of blood transfusion 02/27/2022 Hypertension Seizure ([facility]) Developed seizure-like activity on 02/24 during hospital admission NPO diet @[id number]@ Medications: [Transfer Hold] amLODIPine, 5 mg, Oral, Daily [Transfer Hold] pantoprazole, 40 mg, Oral, BID AC [Transfer Hold] polyethylene glycol (PEG) 3350, 17 g, Oral, Daily [Transfer Hold] sodium chloride 0.9%, 10 mL, IntraVENous, 2 times per day LABS: CBC: Recent Labs 01/23/24 0504 01/24/24 0054 01/24/24 0822 01/24/24 1454 01/25/24 0003 WBC 13.8* 14.2* -- -- 15.1* RBC 2.70* 2.14* -- -- 2.84* HGB 8.0* 6.4* 7.7* 7.7* 8.6* HCT 24.7* 19.8* 23.0* 23.7* 26.4* MCV 91.5 92.5 -- -- 93.0 RDW 16.0* 16.3* -- -- 15.7* PLT 325 327 -- -- 400 BMP: Recent Labs 01/23/24 0504 01/24/24 0054 01/25/24 0003 NA 136 136 136 K 4.4 4.0 4.6 CL 101 103 101 CO2 30 23 18* BUN 26* 30* 36* CREATININE 4.86* 6.63* 8.47* GLUCOSE 107* 116* 82 CALCIUM 7.6* 7.7* 8.3* ANIONGAP 5 11 17* LIVER PROFILE:No results for input(s): AST, ALT, BILITOT, ALKPHOS, PROT in the last 72 hours. No lab exists for component: LABALBU PT/INR: No results for input(s): PROTIME, INR in the last 72 hours. CARDIAC ENZYMES: No results for input(s): TROPONINI in the last 72 hours. Procalcitonin: No results found for: PROCAL I reviewed: [x] laboratory results [x] radiographic results At the time of today's encounter. Pt was informed about the results. Objective: Vitals: BP (!) 122/45 Pulse 89 Temp 36.7 C (98.1 F) Resp 18 Ht 5' 4 (1.626 m) Wt 115 lb (52.2 kg) SpO2 100% BMI 19.74 kg/m Pulse Ox: SpO2 Av.5 % Min: 91 % Max: 100 % Supplemental O2: General appearance: No apparent distress, HEENT: Eyes: No scleral icterus No pallor Oral: Tongue is semi-moist Cardiovascular: S1S2 heard, RRR Respiratory: Clear to auscultation bilaterally Abdomen: Soft, non-tender, non-distended with normal bowel sounds. Musculoskeletal: No obvious deformities seen Skin: No visible rashes or lesions. Neurology- no focal neurology,Awake alert Extremity- peripheral edema both lower extremities Left upper extremity fistula thrill present Assessment Acute problems-- Lower GI bleed with recurrence Anemia secondary to GI bleed Leukocytosis trending down Chronic issues-- End-stage renal disease on hemodialysis Hypertension Seizure disorder Plan Hemoglobin stable GI consult following, colonoscopy done today, hemorrhoids. IR embolization was requested, no active bleeding Resume diet Nephrology following Continue PPI SCDs for DVT prophylaxis Labs ordered for AM CBC BMP Patient was informed about all work up and treatment plan Discussed with nursing staff Extended Emergency Contact Information Primary Emergency Contact: Edward Ruggiero Mobile Relation: Significant Other Preferred language: Cambodian Technical Coordinator needed? No Secondary Emergency Contact: Deshawn Crystal Mobile Relation: Brother Technical Coordinator needed? No Advance Directive: Full Code Anticipated Discharge - Date -1021 - Location - Home - Pending the following -pending clinical course, hemoglobin stabilization, Total time spent (which include face to face and non face to face encounters) : 30 minutes Leticia Collier MD,MD Division of Hospitalist Medicine Images from the original note were not included. PHYSICAL THERAPY Formerly [facility] Initial Evaluation Name/MRN: Apoorva Gonzalez ([id number]) Evaluation Date: 01/24/2024 Date of : 1950 Admission Date: 01/19/2024 5:28 PM Age: 73 y.o. Room[facility]Bed: [facility] Discharge Recommendation: Home with assist PRN Equipment Needed: No Assessment IMPRESSION: Pt up to supervision for all functional mobility. Demos functional walking distance, no c/o of symptoms at this time. No ACH therapy indicated at this time, will dc PT. Rec home with assist prn. Admitting Diagnosis: Gastrointestinal hemorrhage Prognosis: good Performance Deficits /Impairments: N/A Decision Making: Low Complexity Subjective RN cleared. Pt in bed upon entry, consents to PT. Pain: Pt denies any current pain. Past Medical History: Past Medical History: Diagnosis Date Chronic kidney disease (CKD) Hemodialysis patient (CMS/HCC) (HCC) Wednesday, , Wednesday History of blood transfusion 02/27/2022 Hypertension Seizure (HCC) Developed seizure-like activity on 02/24 during hospital admission Past Surgical History: Past Surgical History: Procedure Laterality Date AV FISTULA PLACEMENT Left 08/07/2022 IR CVC TUNNELED DIALYSIS CATHETER PLACEMENT 02/27/2022 IR CVC TUNNELED CATHETER PLACEMENT 02/27/2022 Candis Andrade MD [facility] SPECIAL PROCEDURES Admission Diagnosis: Patient Active Problem List Diagnosis Date Noted Gastrointestinal hemorrhage, unspecified gastrointestinal hemorrhage type 01/19/2024 Hypertensive emergency 02/21/2022 Anemia 01/19/2024 Medical Precautions: No active isolations Proper PPE donned/doffed in accordance with facility standards. Fall Risk: Landers Fall Risk Score: 35 (Medium Risk) Precautions/Restrictions: N/A Family/Caregiver Present: none Overall Cognitive Status: WNL Overall Orientation Status: Oriented x4 Vision: not assessed this session Hearing: normal Social/Functional History Patient admitted from home. 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 Prior Level of Function Prior Level of ADL Function: Independent Prior Level of Mobility: Independent; Device: None Prior Level of Transfers: Independent Objective Lower Extremity Assessment AROM: WNL PROM: Not assessed this session Strength: WNL Sensation: Not assessed this session Balance: Balance During Session: Posture: good Sitting - Static: Independent Sitting - Dynamic: Independent Standing - Static: Independent Standing - Dynamic: Supervision Bed Mobility: Supine to sit: Independent Sit to supine: Independent Transfers Sit to stand: Supervision Stand to sit: Supervision EOB x1 Ambulation Ambulation 1 Assistive device(s) used: None Assist level: Supervision Distance (ft): 300 Quality of gait: No gait deviations, No LOB Pt with standing rest for looking out window x2 during ambulation. No complaints of SOB, dizziness, lightheadedness. Able to carry conversation during amb Outcome Measures AM-PAC How much HELP from another person do you currently need Turning from your back to your side while in a flat bed without using bedrails?: None Moving from lying on your back to sitting on the side of a flat bed without using bedrails?: None Moving to and from a bed to a chair (including a wheelchair)?: None Standing up from a chair using your arms (wheelchair or bedside chair)?: None Walking in a hospital room?: None Stair climbing assessed?: No AM-PAC Inpatient Mobility Raw Score (No Stairs) : 20 JH-HLM JH-HLM Score: Walked 250 ft or more (i.e. several laps on unit) Plan No skilled acute PT indicated at this time. Please reconsult should changes occur. Safety/Education Safety Safety Devices in place: call light within reach and left in bed Restraints: No Education Education Given To: patient Education Provided: Discharge Recommendations Education Method: Verbal Barriers to Learning: None Education Outcome: Verbalized Understanding Goals Patient Stated Goal: To go home Therapy Time Individual Co-treatment Time In 0848 Time Out 0900 Minutes 12 Brenda CHÁVEZ Patient's Physical Therapy Plan of Care supervision is transferred to a [facility] Therapy Services Physical Therapist. Goals and/or treatment plan was established in collaboration with patient/family/other representatives. Cosigned by Rosey Damico PT at 01/24/2024 1:24 PM EDT Hospitalist Progress Note 01/24/2024 8:55 AM [phone]: Please page me for patient care issues. [phone]: Please page [facility] night Hospitalist for any issues. Subjective: Admit Date: 01/19/2024 PCP: Roxie Spain Room#: W6-622/W6-622 B Interval History: 73 y.o. F with a PMHx significant for ESRD on HD (T//), HTN, hx seizures (not currently on anti-epileptic therapy) who was initially admitted to the [facility] 01/18 for anemia 2/2 descending colonic bleed. Received 2u pRBC day of admit. IR attempted to embolize, but was unable with the location. A femoral arterial sheath was left in place to stop the bleeding so she was transferred to the ICU. Required 1u pRBC transfusion overnight into the . She has remained stable throughout admission and her arterial sheath was removed 01/20 morning without complication. Patient transferred out of ICU 01/22 01/23 Patient seen and examined, patient overnight had bloody bowel movements with the bowel prep. Denies abdominal pain no nausea vomiting. Hemoglobin was noted to be low this morning transfuse PRBC hemoglobin improved to 7.7. Denies lightheaded dizziness. Labs reviewed, discussed with TCC and nursing care plan reviewed Past Medical History: Past Medical History: Diagnosis Date Chronic kidney disease (CKD) Hemodialysis patient (CMS/HCC) (HCC) Wednesday, , Wednesday History of blood transfusion 02/27/2022 Hypertension Seizure (HCC) Developed seizure-like activity on 02/24 during hospital admission NPO diet @[email or web address]@ Medications: amLODIPine, 5 mg, Oral, Daily pantoprazole, 40 mg, Oral, BID AC polyethylene glycol (PEG) 3350, 17 g, Oral, Daily sodium chloride 0.9%, 10 mL, IntraVENous, 2 times per day sodium chloride 0.9%, 10 mL, IntraVENous, 2 times per day LABS: CBC: Recent Labs 01/22/24 0010 01/23/24 0504 01/24/24 0054 01/24/24 0822 WBC 17.7* 13.8* 14.2* -- RBC 2.71* 2.70* 2.14* -- HGB 8.0* 8.0* 6.4* 7.7* HCT 24.3* 24.7* 19.8* 23.0* MCV 89.7 91.5 92.5 -- RDW 16.8* 16.0* 16.3* -- PLT 292 325 327 -- BMP: Recent Labs 01/22/24 0010 01/23/24 0504 01/24/24 0054 NA 133* 136 136 K 4.8 4.4 4.0 CL 102 101 103 CO2 21* 30 23 BUN 49* 26* 30* CREATININE 7.66* 4.86* 6.63* GLUCOSE 78 107* 116* CALCIUM 6.7* 7.6* 7.7* ANIONGAP 9 5 11 LIVER PROFILE:No results for input(s): AST, ALT, BILITOT, ALKPHOS, PROT in the last 72 hours. No lab exists for component: LABALBU PT/INR: No results for input(s): PROTIME, INR in the last 72 hours. CARDIAC ENZYMES: No results for input(s): TROPONINI in the last 72 hours. Procalcitonin: No results found for: PROCAL I reviewed: [x] laboratory results [x] radiographic results At the time of today's encounter. Pt was informed about the results. Objective: Vitals: BP 138/68 (BP Location: Right arm, Patient Position: Lying) Pulse 92 Temp 36.6 C (97.8 F) (Temporal) Resp 16 Ht 5' 4 (1.626 m) Wt 117 lb 1 oz (53.1 kg) SpO2 98% BMI 20.09 kg/m Pulse Ox: SpO2 Av.8 % Min: 97 % Max: 100 % Supplemental O2: General appearance: No apparent distress, HEENT: Eyes: No scleral icterus No pallor Oral: Tongue is semi-moist Cardiovascular: S1S2 heard, RRR Respiratory: Clear to auscultation bilaterally Abdomen: Soft, non-tender, non-distended with normal bowel sounds. Musculoskeletal: No obvious deformities seen Skin: No visible rashes or lesions. Neurology- no focal neurology,Awake alert Extremity- peripheral edema both lower extremities Left upper extremity fistula thrill present Assessment Acute problems-- Lower GI bleed with recurrence Anemia secondary to GI bleed Leukocytosis trending down Chronic issues-- End-stage renal disease on hemodialysis Hypertension Seizure disorder Plan Continue to monitor H&H every 6 hours, transfuse as needed GI consult appreciated, RBC scan has been ordered GI planning for colonoscopy tomorrow with slow prep today, low threshold for ICU transfer Nephrology following Continue PPI SCDs for DVT prophylaxis Labs ordered for AM CBC BMP Patient was informed about all work up and treatment plan Discussed with nursing staff Extended Emergency Contact Information Primary Emergency Contact: Edward Ruggiero Mobile Relation: Significant Other Preferred language: Cambodian Technical Coordinator needed? No Secondary Emergency Contact: Deshawn Crystal Mobile Relation: Brother Technical Coordinator needed? No Advance Directive: Full Code Anticipated Discharge - Date -TBD - Location - Home - Pending the following -pending clinical course, workup, colonoscopy Total time spent (which include face to face and non face to face encounters) : 30 minutes Leticia Collier MD,MD Division of Hospitalist Medicine Images from the original note were not included. OCCUPATIONAL THERAPY Formerly [facility] Initial Evaluation Name/MRN: Apoorva Gonzalez ([id number]) Evaluation Date: 01/24/2024 Date of : 1950 Admission Date: 01/19/2024 5:28 PM Age: 73 y.o. Room[facility]Bed: [facility] Discharge Recommendation: Home with assist PRN Equipment Needed: No Assessment IMPRESSION: Patient is a 73-year-old female hospitalized s/p rectal bleeding; found to have a descending colon bleed requiring mesenteric angiogram. Patient with syncopal episode in the ED. Patient is functionally independent with self-care tasks and functional mobility at baseline. Patient is limited by the deficits listed below. Patient is Modified Independent for UB ADLs, Modified Independent LB ADLs and Modified Independent toileting. Patient is Modified Independent bed mobility and Modified Independent for transfers/functional mobility. Recommending Home with Assist PRN upon discharge. Admitting Diagnosis: GI hemorrhage Performance Deficits /Impairments: N/A Prognosis: Good Decision Making: Low Complexity Subjective Patient is supine in bed; patient agreeable to therapy evaluation. Pain: Pt denies any current pain. Past Medical History: Past Medical History: Diagnosis Date Chronic kidney disease (CKD) Hemodialysis patient ([facility]/HCC) ([facility]) Wednesday, , Wednesday History of blood transfusion 02/27/2022 Hypertension Seizure ([facility]) Developed seizure-like activity on 02/24 during hospital admission Past Surgical History: Past Surgical History: Procedure Laterality Date AV FISTULA PLACEMENT Left 08/07/2022 IR CVC TUNNELED DIALYSIS CATHETER PLACEMENT 02/27/2022 IR CVC TUNNELED CATHETER PLACEMENT 02/27/2022 Candis Andrade MD [facility] SPECIAL PROCEDURES Admission Diagnosis: Patient Active Problem List Diagnosis Date Noted Gastrointestinal hemorrhage, unspecified gastrointestinal hemorrhage type 01/19/2024 Hypertensive emergency 02/21/2022 Anemia 01/19/2024 Medical Precautions: No active isolations Proper PPE donned/doffed in accordance with facility standards. Fall Risk: Landers Fall Risk Score: 35 (Medium Risk) Precautions/Restrictions: Lines/Drains/Airways: PIV Family/Caregiver Present: none Overall Cognitive Status: WNL Overall Orientation Status: Oriented x4 Social/Functional History Patient admitted from home. 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 Prior Level of Function Prior Level of ADL Function: Independent Prior Level of Mobility: Independent; Device: None Prior Level of Transfers: Independent Objective ADLs LE Dressing: Modified Independent- threading BLE into pants and donning over hips Grooming: Modified Independent- brushing teeth while sitting at EOB UE Dressing: Modified Independent- donning/doffing gown; patient able to snap gown and make sleeves herself UE Bathing: Modified Independent- washing UB while sitting on EOB LE Bathing: Modified Independent- washing LB while sitting on EOB Upper Extremity Assessment AROM: WFL PROM: Not assessed this session Strength: WFL Vision: no visual deficits Hearing: normal Bed Mobility Supine to sit: Modified Independent Scooting: Modified Independent HOB elevated; use of bed rail. GOOD sitting balance. Transfers/Functional Mobility Sit to stand: Modified Independent Stand to sit: Modified Independent Toilet: Modified Independent Standing balance: Modified Independent Functional mobility: Modified Independent Patient MA for sit-stand from EOB x 2 attempts. Patient ambulated to commode in bathroom with no device and MA. Patient transferred on/off commode with no grab bars. Patient with no overt LOB. Device(s) used: None AM-PAC AM-PAC Inpatient Daily Activity Raw Score: 24 ADL Inpatient CMS G-Code Modifier: CH Plan No skilled acute OT indicated at this time. Please reconsult should changes occur. Safety/Education Safety Safety Devices in place: All fall risk precautions in place, call light within reach, left in bed, and nurse notified Restraints: No Education Education Given To: patient Education Provided: OT Role, Plan of Care, Precautions, and Discharge Recommendations Education Method: Verbal Barriers to Learning: None Education Outcome: Verbalized Understanding Goals Patient Stated Goal: to go home Therapy Time Individual Co-treatment Time In 0831 Time Out 0847 Minutes 16 Mariposa Tejada OT Patient's Occupational Therapy Plan of Care supervision is transferred to a [facility] Services Occupational Therapist. Goals and/or treatment plan was established in collaboration with patient/family/other representatives. [facility] Progress Note Nephrology following for ESRD. Events over night: Doing well-Overnight -HD did well. Patient also received non-urgent HD yesterday afternoon (on // schedule). BP 145/74 Pulse 87 Temp 36.6 C (97.9 F) (Temporal) Resp 20 Ht 1.626 m (5' 4) Wt 53.1 kg (117 lb 1 oz) SpO2 97% BMI 20.09 kg/m Input / Output: 24 HR: Intake/Output Summary (Last 24 hours) at 01/23/2024 1209 Last data filed at 01/23/2024 0507 Gross per 24 hour Intake 420 ml Output -- Net 420 ml Physical Exam Alert and oriented x 3 NAD Neck: no JVD CV: RRR Lungs: CTA bilaterally Abd: soft, NT, ND Ext: no lower extremity edema Scheduled medications amLODIPine, 5 mg, Oral, Daily pantoprazole, 40 mg, Oral, BID AC polyethylene glycol, 4,000 mL, Oral, Once polyethylene glycol (PEG) 3350, 17 g, Oral, Daily sodium chloride 0.9%, 10 mL, IntraVENous, 2 times per day sodium chloride 0.9%, 10 mL, IntraVENous, 2 times per day Continuous medications PRN medications PRN medications: acetaminophen OR acetaminophen, Diclofenac Sodium, ondansetron ODT OR ondansetron, ondansetron, senna-docusate sodium, sodium chloride, sodium chloride, sodium chloride, sodium chloride, sodium chloride 0.9%, sodium chloride 0.9% Results from last 7 days Lab Units 01/23/24 0504 01/20/24 0348 01/19/24 1747 SODIUM mmol/L 136 < > 135 POTASSIUM mmol/L 4.4 < > 4.9 CHLORIDE mmol/L 101 < > 92* CO2 mmol/L 30 < > 30 BUN mg/dL 26* < > 47* CREATININE mg/dL 4.86* < > 7.70* CALCIUM mg/dL 7.6* < > 8.7 PROTEIN TOTAL g/dL -- -- 7.0 BILIRUBIN TOTAL mg/dL -- -- 0.5 ALK PHOS U/L -- -- 88 ALT U/L -- -- 14 AST U/L -- -- 23 GLUCOSE mg/dL 107* < > 146* < > = values in this interval not displayed. Results from last 7 days Lab Units 01/23/24 0504 01/22/24 0010 01/21/24 0036 MAGNESIUM mg/dL 2.1 2.2 2.0 Results from last 7 days Lab Units 01/23/24 0504 01/22/24 0010 01/21/24 0618 01/21/24 0058 01/21/24 0036 WBC AUTO 10*3/uL 13.8* 17.7* -- -- 22.8* HEMOGLOBIN g/dL 8.0* 8.0* 8.2* < > 7.0* HEMATOCRIT % 24.7* 24.3* 24.9* < > 21.0* PLATELETS 10*3/uL 325 292 -- -- 268 < > = values in this interval not displayed. Assessment & Plan: Apoorva Gonzalez is a 73 y.o. female with hx including ESRD, HTN, seizure who presented with blood in stool. Nephrology following for ESRD. ESRD -patient on TTS schedule as outpatient -access: COREEN AVJay HTN -BP with acceptable control recently Volume -ultrafiltration with HD Electrolytes -hyperkalemia -mild with recent K at 4.4 -correction/stabilization with HD -hyponatremia -in setting of ESRD -mild with recent S Na at 136 -correction/stabilization with HD/UF Acid/base -stabilization with HD Anemia -acute blood loss -recent Hgb 8.0 -Fe/HODAN titration can be done as outpatient -transfuse PRN per primary CKD MBD -recent PO4 elevated at 6.4 -dialysis should help lower Plan: -continue HD on TTS schedule, Please message me through EPIC chat with any questions or concerns. Sean Castaneda MD 01/23/2024 12:09 PM [facility] [address] [place] [address], [address] [place] [address] Office: [phone] ICU Progress Note Name: Apoorva Gonzalez : 1950(73 y.o.) Date: 01/23/24 Team: MICU Attending: Dr. Schneider Subjective: Hospital Summary: 73 y.o. F with a PMHx significant for ESRD on HD (T//), HTN, hx seizures (not currently on anti-epileptic therapy) who was initially admitted to the [facility] 01/18 for anemia 2/2 descending colonic bleed. Received 2u pRBC day of admit. IR attempted to embolize, but was unable with the location. A femoral arterial sheath was left in place to stop the bleeding so she was transferred to the ICU. Required 1u pRBC transfusion overnight into the . She has remained stable throughout admission and her arterial sheath was removed 01/20 morning without complication. Interval Events: Feeling well this AM. Had a bowel movement earlier and her abdominal pain has fully resolved. No complaints nor concerns. Was able to get up and sit in chair yesterday. Eager for discharge. ROS Denies fever/chills, decreased appetite Denies abdominal pain, constipation, diarrhea, nausea, vomiting, melena/hematochezia Denies chest pain Denies shortness of breath Denies weakness and light headedness Scheduled Meds:pantoprazole, 40 mg, Oral, BID AC polyethylene glycol (PEG) 3350, 17 g, Oral, Daily senna-docusate sodium, 2 tablet, Oral, Daily Continuous Infusions: Objective: Last Vitals: BP MAP 153/70 (01/23/24 0507) 95 (01/23/24 0507) Arterial BP MAP 122/49 (01/21/24 0206) Temp 36.9 C (98.4 F) (01/23/24 0507) Pulse 89 (01/23/24 0507) Resp 20 (01/23/24 0507) SpO2 99 % (01/23/24 0507) Weight 53.1 kg (117 lb 1 oz) (01/22/24 0009) BMI Body mass index is 20.09 kg/m . I/O: 01/21 0700 - 01/22 0659 In: 420 [P.O.:120; I.V.:300] Out: - Invasive Lines / Tubes / Drains: Peripheral IV 01/19/24 Anterior;Right Forearm (Active) Number of days: 1 Arterial Sheath 5 Fr. Right Femoral (Active) Number of days: 1 Central Line Indication: NA - patient does not have a central line Whyte Indications: NA - patient does not have a Whyte catheter Restraints: NA - patient is not restrained. Wounds: Wound/Incision 08/07/22 Incision Forearm Anterior;Left (Active) Date First Assessed/Time First Assessed: 08/07/22 1137 Primary Wound Type: Incision Location: Forearm Wound Location Orientation: Anterior;Left Constitutional: General Appearance [x]WDWN []Obese []Cachectic []Thin []Ill Eyes: Inspection of Pupils/Irises Pupils round and react: [x]Yes []No Sclera: []Icteric [x]Non-Icteric Inspection of Conjunctiva/Lids Conjunctiva: []Injected [x]Non-Injected Lids: [x]Intact []Lesion Present ENT/Mouth: External Inspection of ears/nose [] Normal [] Scar/Lesion/Mass Inspection of teeth/lips/gums Dentition: [][place] Teeth []Dentures Lips/Gums: [x]Intact []Lesion Present Mucosa: [x][place] []Moist []Dry Neck: External Appearance Overall Appearance: []Normal []Lesion/Mass/Crepitus Present Trachea midline: []Yes []No Thyroid []Normal []Enlarged []Tender []Mass []Absent Respiratory: Respiratory effort []Labored [x]Non-Labored [] Mechanically-Ventilated Auscultation [x]Clear []Crackles []Wheezes [][place] Cardiovascular: Auscultation Rate: [x]Regular []Irregular []Tachycardia []Bradycardia Rhythm: [x]Regular []Irregular Murmur: []Present [x]Absent Extremities Peripheral Edema: []Present [x]Absent Varicosities: []Present []Absent Gastrointestinal: Abdomen Palpation: [x]Soft []Firm [x]Tender []Non-Tender []Distended [x]Non-distended Mass: []Present [x]Absent Bowel Sounds: [x]Present []Absent Hernia: []Present []Absent Liver/Spleen: []Hepatosplenomegaly []Organomegaly Absent Musculoskeletal: Inspection of Digits and Nails Cyanosis: []Present [x]Absent Clubbing: []Present [x]Absent Ischemia: []Present [x]Absent Infection: []Present [x]Absent Extremities ANDERSON Equally: Except ([]RUE []RLE []LUE []LLE) Strength/Tone: Intact and Normal ([]RUE []RLE []LUE []LLE) Skin: Inspection [x]Normal []Rash []Lesion []Ulcer Palpation [x]Warm []Cool [x]Dry []Clammy []Nodules []Induration []Skin-tightening Cap-Refill: [] <3 sec [] >3 seconds (delayed) Neurologic: GCS EYE: 4 - Opens spontaneously GCS MOTOR: 6 - Obeys commands for movement GCS VERBAL: 5 - Oriented to person, place, time Total GCS: 15 [x] Sensation grossly intact Psych: Mental Status Alert: [x]Yes [] No Oriented: []x0 []X1 []X2 [x]x3 Mood/Affect [x]Normal []Flat []Agitated []Depressed []Anxious [x]Calm []Sedated [x]NAD [facility] Labs within last 24 hours- BMP: Recent Labs 01/21/24 0036 01/22/24 0010 01/23/24 0504 NA 135 133* 136 K 4.5 4.8 4.4 CL 100 102 101 CO2 26 21* 30 BUN 26* 49* 26* CREATININE 4.74* 7.66* 4.86* CALCIUM 7.4* 6.7* 7.6* MG 2.0 2.2 2.1 PHOS 6.4* 5.5* 4.3 LFTs: No results for input(s): AST, ALT, PROT, ALBUMIN, BILITOT, BILIRUBINU, ALKPHOS, LIPASE in the last 72 hours. Glucose: Recent Labs 01/21/24 0036 01/22/24 0010 01/23/24 0504 GLUCOSE 85 78 107* Procal: No results for input(s): PROCAL in the last 72 hours. CBC: Recent Labs 01/21/24 0036 01/21/24 0058 01/21/24 0618 01/22/24 0010 01/23/24 0504 WBC 22.8* -- -- 17.7* 13.8* HGB 7.0* < > 8.2* 8.0* 8.0* HCT 21.0* < > 24.9* 24.3* 24.7* PLT 268 -- -- 292 325 MCV 90.5 -- -- 89.7 91.5 RDW 16.4* -- -- 16.8* 16.0* < > = values in this interval not displayed. ABGs: No results for input(s): PHART, CBB3VYF, PO2ART, XVC4EXL, SO2ART, Q3GLLXKB in the last 72 hours. Lactic Acid: No results for input(s): LACTATE in the last 72 hours. INR: No results for input(s): INR in the last 72 hours. Cardiac Injury Profile: No results for input(s): CKTOTAL, CKMB, TROPONINI in the last 72 hours. Labs in Last 3 months: Lab Results Component Value Date TSH 2.317 02/22/2022 INR 1.0 01/19/2024 Microbiology- Urine Cx: No results found for: URINECX Blood Cx: No results found for: BLOODCX Sputum Cx: No results found for: RESPCULT Gram Stain: No results found for: LABGRAM PNA PCR: No results found for: HUMANMETAPNE COVID19: No results found for: COVID19 Legionella Ag: No results found for: LEGIONELLAPN Strep Ag: No results for input(s): STREPPNEUMO in the last 72 hours. Imaging- CTA abdomen pelvis 01/18 Impression Descending colon active bleeding. An element of diverticulitis possible. IR angiogram mesenteric 01/18 Impression Small rounded area of contrast within the left lower quadrant which is in the same location as the area of extravasation seen on prior CTA. There is no movement of this contrast blush. This may represent a tiny area of hemorrhage however the vessel supplying this area is too small for cannulization. No intervention was performed at this time. XR left forearm 01/19 Findings There is no evidence for fracture or dislocation. Osteopenia is noted. No bone lesion is identified. Elongated soft tissue calcification present posterior to the proximal ulna. Surgical clips also noted in the antecubital fossa.. Assessment and Plan: Principal Problem: Gastrointestinal hemorrhage, unspecified gastrointestinal hemorrhage type Assessment: Acute blood loss anemia 2/2 descending colonic bleed - stable Leukocytosis - improving ESRD (HD T//) Constipation - resolved Hx HTN Presyncope 2/2 blood loss anemia vs vasovagal episode - resolved Hx of seizures; no longer on antiepileptic medication Plan: Continue daily CBC w stability of hgb Leukocytosis likely inflammatory response to sheath placement Transfuse for Hgb <7 GI consult for evaluation of colonic bleed and coordination of outpatient follow up / management Consider discharge pending GI recommendations PT/OT ordered Confirmed patient has not taken keppra in ~1 yr (both verbally and w review of dispense report) -> will discontinue inpatient keppra Senna and miralax scheduled daily Add home amlodipine 5 mg GI Prophylaxis: Pantoprazole PO DVT Prophylaxis: SCDs Disposition: Transfer to [facility] Cosigned by Ronald Schneider DO at 01/23/2024 6:50 PM EDT Associated attestation - Ronald Schneider DO - 01/23/2024 6:50 PM EDT I have personally performed a [id number] diagnostic evaluation on this patient on date of service 01/23/24. History, labs, imaging studies, and electronic medical record have been reviewed by me. This note documented by the []Critical Care Fellow [x]char house supervisor []CRISTO reflects my history, exam, and medical decision making. I have reviewed and agree with the care plan. Changes were made in the orders as necessary. ROS documentation was reviewed and negative unless otherwise stated in HPI. Additional pertinent interval history, ROS, and physical exam findings: AdmitDate = 01/19/2024 LOS: 4 Chief Complaint Patient presents with Rectal Bleeding Pt presents to ED for rectal bleeding. Pt reports onset today. Pt reports dark and bright red blood in stool. Pt reports severe abdominal cramping right before a bowel movement. ON Event(s): No ETT: No NIV/HHFNC/Salter: No Sedation: No Pressors: No Assessment: LGIB -- no recurrence Anemia 2/2 GIB -- stable ESRD/HD Leukocytosis -- down trending. Sz d/o Plan: Awaiting scope tomorrow. Stop H/H monitoring and start CBC daily. Resume home meds for BP control. Continue HD per nephro. Continue AEDs. In my professional opinion this pt remains critically ill based on the aforementioned assessment/plan: No Lifethreatening disease process: No Unstable organ failure: No Active vent mgmt: No Active management of life support system(s): No Disposition: Stable to transfer to floor. Critical Care Time: n/a Or Noncritical Care Time: 25min Total time caring for this patient including direct patient contact, review of data including imaging and labs, discussions with other team members and physicians, excluding procedures. [facility] Progress Note Nephrology following for ESRD. Events over night: Doing well-Overnight -HD did well. Patient also received non-urgent HD yesterday afternoon (on schedule). BP (!) 164/69 Pulse 87 Temp 36.8 C (98.2 F) Resp 17 Ht 1.626 m (5' 4) Wt 53.1 kg (117 lb 1 oz) SpO2 100% BMI 20.09 kg/m Input / Output: 24 HR: Intake/Output Summary (Last 24 hours) at 01/22/2024 1622 Last data filed at 01/22/2024 0600 Gross per 24 hour Intake 635 ml Output 1 ml Net 634 ml Physical Exam Alert and oriented x 3 NAD Neck: no JVD CV: RRR Lungs: CTA bilaterally Abd: soft, NT, ND Ext: no lower extremity edema Scheduled medications pantoprazole, 40 mg, Oral, BID AC polyethylene glycol (PEG) 3350, 17 g, Oral, Daily senna-docusate sodium, 2 tablet, Oral, Daily Continuous medications PRN medications PRN medications: acetaminophen OR acetaminophen, Diclofenac Sodium, ondansetron ODT OR ondansetron, sodium chloride, sodium chloride Results from last 7 days Lab Units 01/22/24 0010 01/20/24 0348 01/19/24 1747 SODIUM mmol/L 133* < > 135 POTASSIUM mmol/L 4.8 < > 4.9 CHLORIDE mmol/L 102 < > 92* CO2 mmol/L 21* < > 30 BUN mg/dL 49* < > 47* CREATININE mg/dL 7.66* < > 7.70* CALCIUM mg/dL 6.7* < > 8.7 PROTEIN TOTAL g/dL -- -- 7.0 BILIRUBIN TOTAL mg/dL -- -- 0.5 ALK PHOS U/L -- -- 88 ALT U/L -- -- 14 AST U/L -- -- 23 GLUCOSE mg/dL 78 < > 146* < > = values in this interval not displayed. Results from last 7 days Lab Units 01/22/24 0010 01/21/24 0036 01/20/24 0348 MAGNESIUM mg/dL 2.2 2.0 2.0 Results from last 7 days Lab Units 01/22/24 0010 01/21/24 0618 01/21/24 0058 01/21/24 0036 01/20/24 0958 01/20/24 0348 WBC AUTO 10*3/uL 17.7* -- -- 22.8* -- 20.1* HEMOGLOBIN g/dL 8.0* 8.2* 6.8* 7.0* < > 8.5* HEMATOCRIT % 24.3* 24.9* 20.4* 21.0* < > 24.9* PLATELETS 10*3/uL 292 -- -- 268 -- 285 < > = values in this interval not displayed. Assessment & Plan: Apoorva Gonzalez is a 73 y.o. female with hx including ESRD, HTN, seizure who presented with blood in stool. Nephrology following for ESRD. ESRD -patient on TTS schedule as outpatient -access: COREEN RAMÍREZ HTN -BP with acceptable control recently Volume -ultrafiltration with HD Electrolytes -hyperkalemia -mild with recent K at 4.8 -correction/stabilization with HD -hyponatremia -in setting of ESRD -mild with recent S Na at 133 -correction/stabilization with HD/UF Acid/base -stabilization with HD Anemia -acute blood loss -recent Hgb 8.0 -Fe/HODAN titration can be done as outpatient -transfuse PRN per primary CKD MBD -recent PO4 elevated at 6.4 -dialysis should help lower Plan: -continue HD on TTS schedule, HD today did well Please message me through Convert[employer] chat with any questions or concerns. Sean Castaneda MD 01/22/2024 4:22 PM [facility] [address] [place] [address], [address] [place] [address] Office: [phone] ICU Transfer Checklist Transfer Med Reconciliation (resume home meds if able, convert to PO if able) Complete Antibiotics (name, indication, duration, convert to PO if able) None Steroid (indication, duration, convert to PO if able) None Anticipated [place] Medications (ICU initiated) or Dose Changes and Indication Yes, indication : continue protonix in setting of GI bleed Permanently Discontinued Home Medications and Reason for medication contraindication No Whyte Catheter (please remove if able. Note: place DC order) No Central Line (please remove if able. Note: place DC order) No Transfer Discussed with: Dr Juan If additional questions for ICU team within 24 hours of ICU transfer, page resident team for clarifications. ICU Progress Note Name: Apoorva Gonzalez : 1950(73 y.o.) Date: 01/22/24 Team: MICU Attending: Dr. Schneider Subjective: Hospital Summary: 73 y.o. F with a PMHx significant for ESRD on HD (T//), HTN, hx seizures (not currently on anti-epileptic therapy) who was initially admitted to the [facility] 01/18 for anemia 2/2 descending colonic bleed. Received 2u pRBC day of admit. IR attempted to embolize, but was unable with the location. A femoral arterial sheath was left in place to stop the bleeding so she was transferred to the ICU. Required 1u pRBC transfusion overnight into the . She has remained stable throughout admission and her arterial sheath was removed 01/20 morning without complication. Interval Events: Reports continuing to feel better, and being close to her baseline. She has not had a BM since admission, but is still passing gas and her pain is improved. Feeling stronger and was able to get out of bed yesterday. Tolerating PO diet well. Scheduled Meds:pantoprazole, 40 mg, Oral, BID AC polyethylene glycol (PEG) 3350, 17 g, Oral, Daily senna-docusate sodium, 2 tablet, Oral, Daily Continuous Infusions: Objective: Last Vitals: BP MAP 133/74 (01/22/24 1000) 92 (01/22/24 1000) Arterial BP MAP 122/49 (01/21/24 0206) Temp 36.8 C (98.3 F) (01/22/24 0912) Pulse 84 (01/22/24 1000) Resp 25 (01/22/24 0912) SpO2 100 % (01/22/24 1000) Weight 53.1 kg (117 lb 1 oz) (01/22/24 0009) BMI Body mass index is 20.09 kg/m . I/O: 01/20 0700 - 01/21 0659 In: 985 [P.O.:850; I.V.:135] Out: 1 [Urine:1] Invasive Lines / Tubes / Drains: Peripheral IV 01/19/24 Anterior;Right Forearm (Active) Number of days: 1 Arterial Sheath 5 Fr. Right Femoral (Active) Number of days: 1 Central Line Indication: NA - patient does not have a central line Whyte Indications: NA - patient does not have a Whyte catheter Restraints: NA - patient is not restrained. Wounds: Wound/Incision 08/07/22 Incision Forearm Anterior;Left (Active) Date First Assessed/Time First Assessed: 08/07/22 1137 Primary Wound Type: Incision Location: Forearm Wound Location Orientation: Anterior;Left Constitutional: General Appearance [x]WDWN []Obese []Cachectic []Thin []Ill Eyes: Inspection of Pupils/Irises Pupils round and react: [x]Yes []No Sclera: []Icteric [x]Non-Icteric Inspection of Conjunctiva/Lids Conjunctiva: []Injected [x]Non-Injected Lids: [x]Intact []Lesion Present ENT/Mouth: External Inspection of ears/nose [] Normal [] Scar/Lesion/Mass Inspection of teeth/lips/gums Dentition: [][place] Teeth []Dentures Lips/Gums: [x]Intact []Lesion Present Mucosa: [x][place] []Moist []Dry Neck: External Appearance Overall Appearance: []Normal []Lesion/Mass/Crepitus Present Trachea midline: []Yes []No Thyroid []Normal []Enlarged []Tender []Mass []Absent Respiratory: Respiratory effort []Labored [x]Non-Labored [] Mechanically-Ventilated Auscultation [x]Clear []Crackles []Wheezes [][place] Cardiovascular: Auscultation Rate: [x]Regular []Irregular []Tachycardia []Bradycardia Rhythm: [x]Regular []Irregular Murmur: []Present [x]Absent Extremities Peripheral Edema: []Present [x]Absent Varicosities: []Present []Absent Gastrointestinal: Abdomen Palpation: [x]Soft []Firm [x]Tender []Non-Tender []Distended [x]Non-distended Mass: []Present [x]Absent Bowel Sounds: [x]Present []Absent Hernia: []Present []Absent Liver/Spleen: []Hepatosplenomegaly []Organomegaly Absent Musculoskeletal: Inspection of Digits and Nails Cyanosis: []Present [x]Absent Clubbing: []Present [x]Absent Ischemia: []Present [x]Absent Infection: []Present [x]Absent Extremities ANDERSON Equally: Except ([]RUE []RLE []LUE []LLE) Strength/Tone: Intact and Normal ([]RUE []RLE []LUE []LLE) Skin: Inspection [x]Normal []Rash []Lesion []Ulcer Palpation [x]Warm []Cool [x]Dry []Clammy []Nodules []Induration []Skin-tightening Cap-Refill: [] <3 sec [] >3 seconds (delayed) Neurologic: GCS EYE: 4 - Opens spontaneously GCS MOTOR: 6 - Obeys commands for movement GCS VERBAL: 5 - Oriented to person, place, time Total GCS: 15 [x] Sensation grossly intact Psych: Mental Status Alert: [x]Yes [] No Oriented: []x0 []X1 []X2 [x]x3 Mood/Affect [x]Normal []Flat []Agitated []Depressed []Anxious [x]Calm []Sedated [x]NAD [facility] Labs within last 24 hours- BMP: Recent Labs 01/20/2434701/21/24 0036 01/22/24 0010 NA 132* 135 133* K 5.3* 4.5 4.8 CL 97* 100 102 CO2 27 26 21* BUN 50* 26* 49* CREATININE 8.34* 4.74* 7.66* CALCIUM 7.2* 7.4* 6.7* MG 2.0 2.0 2.2 PHOS 6.4* 6.4* 5.5* LFTs: Recent Labs 01/19/241746 AST 23 ALT 14 PROT 7.0 ALBUMIN 4.0 BILITOT 0.5 ALKPHOS 88 Glucose: Recent Labs 01/19/24174601/20/2434701/21/24 0036 01/22/24 0010 GLUCOSE 146* 116* 85 78 Procal: No results for input(s): PROCAL in the last 72 hours. CBC: Recent Labs 01/20/2434701/20/24 0958 01/21/24 0036 01/21/24 0058 01/21/24 0618 01/22/24 0010 WBC 20.1* -- 22.8* -- -- 17.7* HGB 8.5* < > 7.0* 6.8* 8.2* 8.0* HCT 24.9* < > 21.0* 20.4* 24.9* 24.3* PLT 285 -- 268 -- -- 292 MCV 89.2 -- 90.5 -- -- 89.7 RDW 15.6* -- 16.4* -- -- 16.8* < > = values in this interval not displayed. ABGs: No results for input(s): PHART, RBV7FRF, PO2ART, ZKG4KPX, SO2ART, U2ZDWLKZ in the last 72 hours. Lactic Acid: No results for input(s): LACTATE in the last 72 hours. INR: Recent Labs 01/19/241757 INR 1.0 Cardiac Injury Profile: Recent Labs 01/19/241746 TROPONINI <0.012 Labs in Last 3 months: Lab Results Component Value Date TSH 2.317 02/22/2022 INR 1.0 01/19/2024 Microbiology- Urine Cx: No results found for: URINECX Blood Cx: No results found for: BLOODCX Sputum Cx: No results found for: RESPCULT Gram Stain: No results found for: LABGRAM PNA PCR: No results found for: HUMANMETAPNE COVID19: No results found for: COVID19 Legionella Ag: No results found for: LEGIONELLAPN Strep Ag: No results for input(s): STREPPNEUMO in the last 72 hours. Imaging- CTA abdomen pelvis 01/18 Impression Descending colon active bleeding. An element of diverticulitis possible. IR angiogram mesenteric 01/18 Impression Small rounded area of contrast within the left lower quadrant which is in the same location as the area of extravasation seen on prior CTA. There is no movement of this contrast blush. This may represent a tiny area of hemorrhage however the vessel supplying this area is too small for cannulization. No intervention was performed at this time. XR left forearm 01/19 Findings There is no evidence for fracture or dislocation. Osteopenia is noted. No bone lesion is identified. Elongated soft tissue calcification present posterior to the proximal ulna. Surgical clips also noted in the antecubital fossa.. Assessment and Plan: Principal Problem: Gastrointestinal hemorrhage, unspecified gastrointestinal hemorrhage type Assessment: Acute blood loss anemia 2/2 descending colonic bleed - stable Leukocytosis - improving ESRD (HD T//) Constipation Hx HTN Presyncope 2/2 blood loss anemia vs vasovagal episode - resolved Hx of seizures; no longer on antiepileptic medication Plan: Continue daily CBC w stability of hgb Leukocytosis likely inflammatory response to sheath placement Transfuse for Hgb <7 GI consult for evaluation of colonic bleed and coordination of outpatient follow up / management PT/OT ordered Confirmed patient has not taken keppra in ~1 yr (both verbally and w review of dispense report) -> will discontinue inpatient keppra Senna and miralax scheduled daily GI Prophylaxis: Pantoprazole PO DVT Prophylaxis: SCDs Disposition: Transfer to [facility] Cosigned by Ronald Schneider DO at 01/22/2024 1:39 PM EDT Associated attestation - Ronald Schneider, - 01/22/2024 1:39 PM EDT I have personally performed a [id number] diagnostic evaluation on this patient on date of service 01/22/24. History, labs, imaging studies, and electronic medical record have been reviewed by me. This note documented by the []Critical Care Fellow [x]char house supervisor []CRISTO reflects my history, exam, and medical decision making. I have reviewed and agree with the care plan. Changes were made in the orders as necessary. ROS documentation was reviewed and negative unless otherwise stated in HPI. Additional pertinent interval history, ROS, and physical exam findings: AdmitDate = 01/19/2024 LOS: 3 Chief Complaint Patient presents with Rectal Bleeding Pt presents to ED for rectal bleeding. Pt reports onset today. Pt reports dark and bright red blood in stool. Pt reports severe abdominal cramping right before a bowel movement. ON Event(s): No ETT: No NIV/HHFNC/Salter: No Sedation: No Pressors: No Assessment: LGIB -- no recurrence Anemia 2/2 GIB -- stable after transfusion ESRD/HD Leukocytosis -- down trending. Sz d/o Plan: No recurrence of bleeding. Hemodynaimcs have remained stable. Change H/H to daily. GI consult (likely outpt cscope). Pt tolerating diet. Bowel mvmt this morning per pt. Pt tolerated HD. Continue keppra. In my professional opinion this pt remains critically ill based on the aforementioned assessment/plan: No Lifethreatening disease process: No Unstable organ failure: No Active vent mgmt: No Active management of life support system(s): No Disposition: Stable to transfer to floor. Critical Care Time: n/a Or Noncritical Care Time: 25min Total time caring for this patient including direct patient contact, review of data including imaging and labs, discussions with other team members and physicians, excluding procedures. [facility] Progress Note Nephrology following for ESRD. Events over night: Doing well-Overnight patient required 1 unit pRBCs due to Hgb 6.8. Patient has not had any additional bloody stools since admission. Patient also received non-urgent HD yesterday afternoon (on schedule). BP 129/81 Pulse 90 Temp 37.6 C (99.6 F) (Oral) Resp 19 Ht 1.626 m (5' 4) Wt 51.7 kg (113 lb 15.7 oz) SpO2 98% BMI 19.56 kg/m Input / Output: 24 HR: Intake/Output Summary (Last 24 hours) at 01/21/2024 1532 Last data filed at 01/21/2024 1000 Gross per 24 hour Intake 2394 ml Output 0 ml Net 2394 ml Physical Exam Alert and oriented x 3 NAD Neck: no JVD CV: RRR Lungs: CTA bilaterally Abd: soft, NT, ND Ext: no lower extremity edema Scheduled medications atropine, , , [START ON 01/22/2024] levETIRAcetam, 500 mg, Oral, Daily pantoprazole, 40 mg, Oral, BID AC Or pantoprazole (ProtoNix) 40 mg in sodium chloride (PF) 0.9 % 10 mL injection, 40 mg, IntraVENous, BID AC Continuous medications PRN medications PRN medications: acetaminophen OR acetaminophen, atropine, Diclofenac Sodium, ondansetron ODT OR ondansetron, polyethylene glycol (PEG) 3350, sodium chloride, sodium chloride Results from last 7 days Lab Units 01/21/24 0036 01/20/24 0348 01/19/24 1747 SODIUM mmol/L 135 < > 135 POTASSIUM mmol/L 4.5 < > 4.9 CHLORIDE mmol/L 100 < > 92* CO2 mmol/L 26 < > 30 BUN mg/dL 26* < > 47* CREATININE mg/dL 4.74* < > 7.70* CALCIUM mg/dL 7.4* < > 8.7 PROTEIN TOTAL g/dL -- -- 7.0 BILIRUBIN TOTAL mg/dL -- -- 0.5 ALK PHOS U/L -- -- 88 ALT U/L -- -- 14 AST U/L -- -- 23 GLUCOSE mg/dL 85 < > 146* < > = values in this interval not displayed. Results from last 7 days Lab Units 01/21/24 0036 01/20/24 0348 MAGNESIUM mg/dL 2.0 2.0 Results from last 7 days Lab Units 01/21/24 0618 01/21/24 0058 01/21/24 0036 01/20/24 0958 01/20/24 0348 01/19/24 2349 01/19/24 1747 WBC AUTO 10*3/uL -- -- 22.8* -- 20.1* -- 15.9* HEMOGLOBIN g/dL 8.2* 6.8* 7.0* < > 8.5* < > 7.7* HEMATOCRIT % 24.9* 20.4* 21.0* < > 24.9* < > 24.4* PLATELETS 10*3/uL -- -- 268 -- 285 -- 465* < > = values in this interval not displayed. Assessment & Plan: Apoorva Gonzalez is a 73 y.o. female with hx including ESRD, HTN, seizure who presented with blood in stool. Nephrology following for ESRD. ESRD -patient on TTS schedule as outpatient -access: LUE AVG HTN -BP with acceptable control recently Volume -ultrafiltration with HD Electrolytes -hyperkalemia -mild with recent K at 4.5 -correction/stabilization with HD -hyponatremia -in setting of ESRD -mild with recent S Na at 132 -correction/stabilization with HD/UF Acid/base -stabilization with HD Anemia -acute blood loss -recent Hgb 8.2 -Fe/HODAN titration can be done as outpatient -transfuse PRN per primary CKD MBD -recent PO4 elevated at 6.4 -dialysis should help lower Plan: -continue HD on TTS schedule, HD tomorrow Please message me through EPIC chat with any questions or concerns. Sean Castaneda MD 01/21/2024 3:32 PM [facility] [address] [place] [address], [address] [place] [address] Office: [phone] Nutrition Assessment Type and Reason for Visit: Assessment Nutrition Recommendations/Plan: Continue regular diet as ordered Consider phosphate binder, if appropriate Per MNT protocol, will order vanilla Magic Cup once daily to promote weight maintenance and adequate PO intake Encourage frequent meals and snacks as well as protein-dense foods RD will monitor overall nutrition status and will follow weekly Malnutrition Assessment: Malnutrition Status: At risk for malnutrition (Comment) Context: Acute Illness Findings of the 6 clinical characteristics of malnutrition: Energy Intake: 50% or less of estimated energy requirements for 5 or more days Weight Loss: No significant weight loss Body Fat Loss: No significant body fat loss Muscle Mass Loss: No significant muscle mass loss Fluid Accumulation: No significant fluid accumulation Property Condition Assessor Strength: Not Performed Nutrition Assessment: Pt with PMH including ESRD on HD (//), HTN, Hx seizures presented to [facility] ED 01/19/24 due to 10 episodes of bright red and dark bloody stools beginning the previous day and continuing into 01/18. In ED, noted to have mild tachycardia at 101 and otherwise stable vitals. While in ED, patient did have repeat multiple bright red bloody bowel movements. Also experienced episode of apparent syncope during a bowel movement, causing her to fall onto her left forearm; no head trauma or complete loss of consciousness. Labs in ED showing WBCs of 15.9, hemoglobin 7.7, platelets of 465. CMP revealing elevated creatinine of 7.7 in the setting of known ESRD, with BUN of 47. Stat CTA of the abdomen and pelvis revealed descending colonic active bleed with elements of diverticulosis possible. Patient was transferred to IR; unsuccessful procedure, as bleeding had stopped. Due to the intermittent nature of descending clinic bleeds, the decision was made to keep the patient's arterial sheath in place, as further need for intervention is very possible. Now s/p x2 units pRBC with improvement in hemoglobin to 9.5. Repeat studies showing slight down trending of hemoglobin 8.5 >> 7.9. Pt reports imrpoving appetite, states she ate fruit for breakfast today, initially reports this is typical meal size for her prior to admission, however later states that she eats a lot. She reports little to no intake fro a 5 days period before and during admission and endorses weight loss from usual dry weight of ~115#, but states she loses weight easily and is able to regain weight easily also, and also states her BMI has been below 20 her whole life. She does not consume ONS at home or at dialysis, states her prtoein/albumin labs are always good, describes consuming 5 oz of protein daily. She declines Nepro, states I won't drink it. She is agreeable to trial of Magic Cup once daily. RD also encouraged overall increased PO intake, frequent snacking, and increased protein intake. Estimated Daily Nutrient Needs: Energy Requirements Based On: Kcal/kg Weight Used for Energy Requirements: Current (30-35 kcal/kg) Weight for Energy Calculation (kg): 54.4 kg Total Energy Requirements (kcals/day): 4864-0508 Weight Used for Protein Requirements: Current (1.2-1.4 g/kg) Weight in Kg Used for Protein Requirements: 54.4 kg Estimated Total Protein (g/day): 65-76 Estimated Daily Total Fluid (ml/day): per MD Nutrition Related Findings: Nutrition History: Independent of feeding. Lives with: Alone GI symptoms: Decreased appetite. Arnol Scale Score: 15. Wound Type: None Net IO Since Admission: 2,824 mL [01/21/24 1315] Edema: RUE Edema: None, LUE Edema: None, RLE Edema: None, LLE Edema: None Bowel Sounds (All Quadrants): Active Abdomen Inspection: Nondistended Last BM Date: 01/20/24 Labs and meds reviewed: atropine, , , [START ON 01/22/2024] levETIRAcetam, 500 mg, Oral, Daily pantoprazole, 40 mg, Oral, BID AC Or pantoprazole (ProtoNix) 40 mg in sodium chloride (PF) 0.9 % 10 mL injection, 40 mg, IntraVENous, BID AC BMP: Recent Labs 01/19/24 1747 01/20/24 0348 01/21/24 0036 NA 135 132* 135 K 4.9 5.3* 4.5 CL 92* 97* 100 CO2 30 27 26 BUN 47* 50* 26* CREATININE 7.70* 8.34* 4.74* GLUCOSE 146* 116* 85 CALCIUM 8.7 7.2* 7.4* MG -- 2.0 2.0 PHOS -- 6.4* 6.4* Current Nutrition Therapies: Adult diet Regular Current Oral Intake Average Meal Intake: 1-25% (per pt description) Average Supplements Intake: None Ordered Anthropometric Measures: Height: 162.6 cm (5' 4) Current Body Weight: 51.7 kg (113 lb 15.7 oz) Admission Body Weight: 50.3 kg (111 lb) (stated) Usual Body Weight: (112# on 01/08/23, 110# on 08/09/23) [place] [place] Body Weight (lbs) (Calculated): 120 lbs [place] Body Weight (Kg) (Calculated): 55 kg % [place] Body Weight (Calculated): 95 % BMI (kg/m2) (Calculated): 19.6 BMI Categories: Underweight (BMI less than 22) age over 65 Wt Readings from Last 10 Encounters: 01/20/24 51.7 kg (113 lb 15.7 oz) 08/09/23 49.9 kg (110 lb) 01/12/23 52.2 kg (115 lb) 10/01/22 51.7 kg (114 lb) 08/26/22 51.7 kg (114 lb) 08/07/22 49.9 kg (110 lb) 07/10/22 49.9 kg (110 lb 1.6 oz) 06/24/22 51.7 kg (114 lb) 03/02/22 51.5 kg (113 lb 8.6 oz) Nutrition Diagnosis: Increased nutrient needs related to increase demand for energy/nutrients as evidenced by dialysis Underweight related to inadequate protein-energy intake as evidenced by BMI ([id number]) Nutrition Interventions: Food and/or Nutrient Delivery: Continue Current Diet, Start Oral Nutrition Supplement Nutrition Education/Counseling: No recommendation at this time Coordination of Nutrition Care: Continue to monitor while inpatient Goals: Goals: PO intake 75% or greater, by next RD assessment Nutrition Monitoring and Evaluation: Behavioral-Environmental Outcomes: None Identified Food/Nutrient Intake Outcomes: Food and Nutrient Intake, Supplement Intake Physical Signs/Symptoms Outcomes: Biochemical Data, GI Status, Fluid Status or Edema, Skin, Weight Discharge Planning: Continue Oral Nutrition Supplement Maren Warner RD, LD Contact: *[phone] or via Convertro chat ICU Progress Note Name: Apoorva Gonzalez : 1950(73 y.o.) Date: 01/21/24 Team: MICU Attending: Dr. Schneider Subjective: Hospital Summary: Interval Events: Overnight patient required 1 unit pRBCs due to Hgb 6.8. Patient has not had any additional bloody stools since admission. Patient also received non-urgent HD yesterday afternoon (on schedule). On exam, patient is resting comfortably in bed. Continues to report no repeat bloody stools, but has not had any bowel movements since admission. Feels lower abdominal pain is improved. Reports no nausea/vomiting, hematemesis. Also has remained in bed, but denies any repeat episodes of pre/syncope or dizziness or falls. Feels left arm pain also improving. Reports dialysis was well tolerated yesterday. No additional symptoms concerns. No chest pain, dyspnea, edema, headaches. Scheduled Meds:atropine, , , [START ON 01/22/2024] levETIRAcetam, 500 mg, Oral, Daily pantoprazole, 40 mg, Oral, BID AC Or pantoprazole (ProtoNix) 40 mg in sodium chloride (PF) 0.9 % 10 mL injection, 40 mg, IntraVENous, BID AC Continuous Infusions: Objective: Last Vitals: BP MAP 142/72 (01/21/24 1300) 91 (01/21/24 1300) Arterial BP MAP 122/49 (01/21/24 0206) Temp 37.6 C (99.6 F) (01/21/24 1200) Pulse 85 (01/21/24 1300) Resp 19 (01/21/24 1300) SpO2 100 % (01/21/24 1300) Weight 51.7 kg (113 lb 15.7 oz) (01/20/24 0700) BMI Body mass index is 19.56 kg/m . I/O: 01/19 0700 - 01/20 0659 In: 2244 [I.V.:1934] Out: 0 Ventilator: Oxygen Delivery: Invasive Lines / Tubes / Drains: Peripheral IV 01/19/24 Anterior;Right Forearm (Active) Number of days: 1 Arterial Sheath 5 Fr. Right Femoral (Active) Number of days: 1 Central Line Indication: NA - patient does not have a central line Whyte Indications: NA - patient does not have a Whyte catheter Restraints: NA - patient is not restrained. Wounds: Wound/Incision 08/07/22 Incision Forearm Anterior;Left (Active) Date First Assessed/Time First Assessed: 08/07/22 113 Primary Wound Type: Incision Location: Forearm Wound Location Orientation: Anterior;Left Constitutional: General Appearance [x]WDWN []Obese []Cachectic []Thin []Ill Eyes: Inspection of Pupils/Irises Pupils round and react: [x]Yes []No Sclera: []Icteric [x]Non-Icteric Inspection of Conjunctiva/Lids Conjunctiva: []Injected [x]Non-Injected Lids: [x]Intact []Lesion Present ENT/Mouth: External Inspection of ears/nose [] Normal [] Scar/Lesion/Mass Inspection of teeth/lips/gums Dentition: [][place] Teeth []Dentures Lips/Gums: []Intact []Lesion Present Mucosa: [][place] []Moist []Dry Neck: External Appearance Overall Appearance: []Normal []Lesion/Mass/Crepitus Present Trachea midline: []Yes []No Thyroid []Normal []Enlarged []Tender []Mass []Absent Respiratory: Respiratory effort []Labored [x]Non-Labored [] Mechanically-Ventilated Auscultation [x]Clear []Crackles []Wheezes []Rhonchi Cardiovascular: Auscultation Rate: [x]Regular []Irregular []Tachycardia []Bradycardia Rhythm: [x]Regular []Irregular Murmur: []Present [x]Absent Extremities Peripheral Edema: []Present [x]Absent Varicosities: []Present []Absent Gastrointestinal: Abdomen Palpation: [x]Soft []Firm [x]Tender []Non-Tender []Distended [x]Non-distended Mass: []Present [x]Absent Bowel Sounds: [x]Present []Absent Hernia: []Present []Absent Liver/Spleen: []Hepatosplenomegaly []Organomegaly Absent Musculoskeletal: Inspection of Digits and Nails Cyanosis: []Present [x]Absent Clubbing: []Present [x]Absent Ischemia: []Present [x]Absent Infection: []Present [x]Absent Extremities ANDERSON Equally: Except ([]RUE []RLE []LUE []LLE) Strength/Tone: Intact and Normal ([]RUE []RLE []LUE []LLE) Skin: Inspection []Normal []Rash []Lesion []Ulcer Palpation [x]Warm []Cool [x]Dry []Clammy []Nodules []Induration []Skin-tightening Cap-Refill: [] <3 sec [] >3 seconds (delayed) Neurologic: GCS EYE: 4 - Opens spontaneously GCS MOTOR: 6 - Obeys commands for movement GCS VERBAL: 5 - Oriented to person, place, time Total GCS: 15 [x] Sensation grossly intact Psych: Mental Status Alert: [x]Yes [] No Oriented: []x0 []X1 []X2 [x]x3 Mood/Affect [x]Normal []Flat []Agitated []Depressed []Anxious [x]Calm []Sedated [x]NAD Select Labs within last 24 hours- BMP: Recent Labs 01/19/24174601/20/2434701/21/2435 NA 135 132* 135 K 4.9 5.3* 4.5 CL 92* 97* 100 CO2 30 27 26 BUN 47* 50* 26* CREATININE 7.70* 8.34* 4.74* CALCIUM 8.7 7.2* 7.4* MG -- 2.0 2.0 PHOS -- 6.4* 6.4* LFTs: Recent Labs 01/19/241746 AST 23 ALT 14 PROT 7.0 ALBUMIN 4.0 BILITOT 0.5 ALKPHOS 88 Glucose: Recent Labs 01/19/24174601/20/2434701/21/24 0036 GLUCOSE 146* 116* 85 Procal: No results for input(s): PROCAL in the last 72 hours. CBC: Recent Labs 01/19/24174601/19/24 2349 01/20/2434701/20/24 0958 01/21/24 0036 01/21/24 0058 01/21/24 0618 WBC 15.9* -- 20.1* -- 22.8* -- -- HGB 7.7* < > 8.5* < > 7.0* 6.8* 8.2* HCT 24.4* < > 24.9* < > 21.0* 20.4* 24.9* PLT 465* -- 285 -- 268 -- -- MCV 93.5 -- 89.2 -- 90.5 -- -- RDW 16.7* -- 15.6* -- 16.4* -- -- < > = values in this interval not displayed. ABGs: No results for input(s): PHART, KQD1WXN, PO2ART, PCA5LHO, SO2ART, E8UYIYJV in the last 72 hours. Lactic Acid: No results for input(s): LACTATE in the last 72 hours. INR: Recent Labs 01/19/24 1758 INR 1.0 Cardiac Injury Profile: Recent Labs 01/19/24 1747 TROPONINI <0.012 Labs in Last 3 months: Lab Results Component Value Date TSH 2.317 02/22/2022 INR 1.0 01/19/2024 Microbiology- Urine Cx: No results found for: URINECX Blood Cx: No results found for: BLOODCX Sputum Cx: No results found for: RESPCULT Gram Stain: No results found for: LABGRAM PNA PCR: No results found for: HUMANMETAPNE COVID19: No results found for: COVID19 Legionella Ag: No results found for: LEGIONELLAPN Strep Ag: No results for input(s): STREPPNEUMO in the last 72 hours. Imaging- CTA abdomen pelvis 01/18 Impression Descending colon active bleeding. An element of diverticulitis possible. IR angiogram mesenteric 01/18 Impression Small rounded area of contrast within the left lower quadrant which is in the same location as the area of extravasation seen on prior CTA. There is no movement of this contrast blush. This may represent a tiny area of hemorrhage however the vessel supplying this area is too small for cannulization. No intervention was performed at this time. XR left forearm 01/19 Findings There is no evidence for fracture or dislocation. Osteopenia is noted. No bone lesion is identified. Elongated soft tissue calcification present posterior to the proximal ulna. Surgical clips also noted in the antecubital fossa.. Assessment and Plan: Principal Problem: Gastrointestinal hemorrhage, unspecified gastrointestinal hemorrhage type Assessment: Acute blood loss anemia 2/2 descending colonic bleed Acute descending colonic bleed Diverticulitis? Leukocytosis, up-trending ESRD Hx HTN Presyncope 2/2 blood loss anemia vs vasovagal episode Hx of seizures; no longer on antiepileptic medication Plan: Patient requiring repeat pRBC transfusion overnight with repeat Hgb of 8.2 In total this admission, s/p 3 units pRBCs No repeat bloody bowel movements reported, low concern for continued bleeding Planning to remove femoral arterial sheath as IR not planning for repeat procedure Will scale back to daily CBC to monitor Hgb and WBC Transfuse for Hgb <7 Will resume diet as no procedure planned Holding antibiotics for diverticulitis Patient reporting improved abdominal pain; no bloody stools If WBC continues to increase or patient's pain worsens, can consider addition of PO abx GI consult for evaluation of colonic bleed and coordination of outpatient follow up / management ESRD on HD (//) Nephro following for IP dialysis Fall precautions Topical diclofenac for left arm pain after fall No fracture on xray Hx of seizures; not on home antiepileptic medication Pt reports that she has not been on her home Keppra for approximately 1 year per her PCPs recommendations; as such, holding and will likely discontinue altogether as her hx of seizure occurred while hospitalized and has had none since. GI Prophylaxis: Pantoprazole IV DVT Prophylaxis: SCDs Disposition: Remain in ICU Status I performed a history and physical examination of the patient and discussed her management with the medical student. I reviewed the medical student note and agree with the documented findings and plan of care. My additional input is written in above. Patient has been receiving daily keppra while in patient. Will follow up on necessity. Cosigned by Ronald Schneider DO at 01/21/2024 7:55 PM EDT Associated attestation - Ronald Schneider DO - 01/21/2024 7:55 PM EDT I have personally performed a [id number] diagnostic evaluation on this patient on date of service 01/21/24. History, labs, imaging studies, and electronic medical record have been reviewed by me. This note documented by the []Critical Care Fellow [x]char house supervisor []CRISTO reflects my history, exam, and medical decision making. I have reviewed and agree with the care plan. Changes were made in the orders as necessary. ROS documentation was reviewed and negative unless otherwise stated in HPI. Additional pertinent interval history, ROS, and physical exam findings: AdmitDate = 01/19/2024 LOS: 2 Chief Complaint Patient presents with Rectal Bleeding Pt presents to ED for rectal bleeding. Pt reports onset today. Pt reports dark and bright red blood in stool. Pt reports severe abdominal cramping right before a bowel movement. ON Event(s): Yes, describe: transfused 1 unit ETT: No NIV/HHFNC/[place]: No Sedation: No Pressors: No Assessment: LGIB -- no recurrence Anemia 2/2 GIB -- stable after transfusion ESRD/HD Leukocytosis Sz d/o Plan: Remove sheath today. Change labs to daily. Transfuse if Hb<7. Nephro following for HD. If leukocytosis worsens, abd pain inc's, or develops fever will start PO Abx for possible diverticulitis. Continue keppra Remainder of plan per resident note. In my professional opinion this pt remains critically ill based on the aforementioned assessment/plan: No Lifethreatening disease process: No Unstable organ failure: No Active vent mgmt: No Active management of life support system(s): No Disposition: Stable to transfer to floor. Tomorrow. Critical Care Time: n/a Or Noncritical Care Time: 35min Total time caring for this patient including direct patient contact, review of data including imaging and labs, discussions with other team members and physicians, excluding procedures. INTERVENTIONAL RADIOLOGY PROGRESS NOTE Admit Date: 01/19/2024 Subjective: This is a 73 y.o. female who was admitted to [facility] on 01/18. Pt presented to the ED with complaints of rectal bleeding. History of ESRD, on dialysis. CTA demonstrated descending colon active bleeding. Hgb 7.7 on presentation, she received 2 units pRBC was given. Hgb improved to 9.5 last night. IR was consulted for embolization. Successful mesenteric angiogram. Small area of possible hemorrhage identified, but vessel supplying the area was too small for cannulization. Patient endorses mild discomfort at groin site and mild abdominal pain. She denies nausea and vomiting. Most recent Hgb this morning 7.9. Objective: Vitals: Vitals: 01/20/24 1000 BP: 135/68 Pulse: 105 Resp: (!) 9 Temp: SpO2: 98% General appearance: Asleep on exam Abdomen: Right arterial sheath in place, bandage C/D/I. No bruising or hematoma. Appropriately tender to palpation. Femoral pulse palpable. Extremities: BLE warm, well perfused. Palpable DP pulses bilaterally. Neurologic: Asleep on exam, awoke to questions, able to answer appropriately DATA: CBC: Lab Results Component Value Date WBC 20.1 (H) 01/20/2024 HGB 7.9 (L) 01/20/2024 HCT 23.4 (L) 01/20/2024 MCV 89.2 01/20/2024 PLT 285 01/20/2024 BMP: Lab Results Component Value Date GLUCOSE 116 (H) 01/20/2024 CALCIUM 7.2 (L) 01/20/2024 NA 132 (L) 01/20/2024 K 5.3 (H) 01/20/2024 CO2 27 01/20/2024 CL 97 (L) 01/20/2024 BUN 50 (H) 01/20/2024 CREATININE 8.34 (H) 01/20/2024 INR: Lab Results Component Value Date INR 1.0 01/19/2024 INR 1.0 02/24/2022 INR 0.9 02/21/2022 PROTIME 11.0 01/19/2024 PROTIME 10.3 02/24/2022 PROTIME 9.9 02/21/2022 I&O: I/O last 3 completed shifts: In: 430 (8.5 mL/kg) [Blood:430] Out: - (0 mL/kg) Weight: 50.3 kg No intake/output data recorded. Assessment/Plan Apoorva Gonzalez is a 73 y.o. female who was admitted to [facility] on 01/19/2024 for GI bleed. - Successful mesenteric angiogram 01/18. - Small area of possible hemorrhage identified, but vessel supplying the area was too small for cannulization. - Patient remains hemodynamically stable - H&H down trending today, continue to monitor - Will discuss with attending physician. - Continue medical management and disposition per primary care team I personally spent 15 minutes consulting with patient, of which over 50% was spent counseling. Norma Elliott PA-C Interventional Radiology ICU Progress Note Name: Apoorva Gonzalez : 1950(73 y.o.) Date: 01/20/24 Team: MICU Attending: Dr. Schneider Subjective: Hospital Summary: Ms. Gonzalez is a 73 F with PMH ESRD on HD (T//), HTN, Hx seizures who presented to [facility] ED 01/18 due to 10 episodes of bright red and dark bloody stools beginning the previous day and continuing into 01/18. In ED, noted to have mild tachycardia at 101 and otherwise stable vitals. While in ED, patient did have repeat multiple bright red bloody bowel movements. Also experienced episode of apparent syncope during a bowel movement, causing her to fall onto her left forearm; no head trauma or complete loss of consciousness. Labs in ED showing WBCs of 15.9, hemoglobin 7.7, platelets of 465. CMP revealing elevated creatinine of 7.7 in the setting of known ESRD, with BUN of 47. Stat CTA of the abdomen and pelvis revealed descending colonic active bleed with elements of diverticulosis possible. Patient was transferred to IR; unsuccessful procedure, as bleeding had stopped. Due to the intermittent nature of descending clinic bleeds, the decision was made to keep the patient's arterial sheath in place, as further need for intervention is very possible. Now s/p x2 units pRBC with improvement in hemoglobin to 9.5. Repeat studies showing slight down trending of hemoglobin 8.5 >> 7.9. Interval Events: Patient admitted to ICU given left sheath in femoral artery remains in place (in case of recurrent bleeding). On exam patient reports no repeat melena/hematochezia. Does have some ongoing left sided abdominal pain/tenderness. Denies nausea/vomiting or hematemesis. Does report she began taking various supplements/natural remedies approximately one month ago in an effort to improve her renal function. Reports adherence to dialysis schedule; last session on Wednesday 01/17. Notes she still has soreness of her left forearm since her fall yesterday. Has been adherent to strict bedrest. No other symptoms or concerns. Scheduled Meds:levETIRAcetam, 500 mg, IntraVENous, Daily pantoprazole, 40 mg, Oral, Nightly Or pantoprazole (ProtoNix) 40 mg in sodium chloride (PF) 0.9 % 10 mL injection, 40 mg, IntraVENous, Nightly Continuous Infusions: Objective: Last Vitals: BP MAP 126/72 (01/20/24 1300) 87 (01/20/24 1300) Arterial BP MAP Temp 37.1 C (98.8 F) (01/20/24 1100) Pulse 100 (01/20/24 1300) Resp 21 (01/20/24 1300) SpO2 98 % (01/20/24 1300) Weight 51.7 kg (113 lb 15.7 oz) (01/20/24 0700) BMI Body mass index is 19.56 kg/m . I/O: 01/18 07 - 01/19 0659 In: 430 Out: - Ventilator: Oxygen Delivery: Invasive Lines / Tubes / Drains: Peripheral IV 01/19/24 Anterior;Right Forearm (Active) Number of days: 0 Arterial Sheath 5 Fr. Right Femoral (Active) Number of days: 0 Central Line Indication: Hemodialysis Whyte Indications: NA - patient does not have a Whyte catheter Restraints: NA - patient is not restrained. Wounds: Wound/Incision 08/07/22 Incision Forearm Anterior;Left (Active) Date First Assessed/Time First Assessed: 08/07/22 1137 Primary Wound Type: Incision Location: Forearm Wound Location Orientation: Anterior;Left Constitutional: General Appearance [x]WDWN []Obese []Cachectic []Thin []Ill Eyes: Inspection of Pupils/Irises Pupils round and react: [x]Yes []No Sclera: []Icteric [x]Non-Icteric Inspection of Conjunctiva/Lids Conjunctiva: []Injected [x]Non-Injected Lids: [x]Intact []Lesion Present ENT/Mouth: External Inspection of ears/nose [] Normal [] Scar/Lesion/Mass Inspection of teeth/lips/gums Dentition: [][place] Teeth []Dentures Lips/Gums: []Intact []Lesion Present Mucosa: [][place] []Moist []Dry Neck: External Appearance Overall Appearance: []Normal []Lesion/Mass/Crepitus Present Trachea midline: []Yes []No Thyroid []Normal []Enlarged []Tender []Mass []Absent Respiratory: Respiratory effort []Labored [x]Non-Labored [] Mechanically-Ventilated Auscultation [x]Clear []Crackles []Wheezes []Rhonchi Cardiovascular: Auscultation Rate: [x]Regular []Irregular []Tachycardia []Bradycardia Rhythm: [x]Regular []Irregular Murmur: []Present [x]Absent Extremities Peripheral Edema: []Present [x]Absent Varicosities: []Present []Absent Gastrointestinal: Abdomen Palpation: [x]Soft []Firm [x]Tender []Non-Tender []Distended [x]Non-distended Mass: []Present [x]Absent Bowel Sounds: [x]Present []Absent Hernia: []Present []Absent Liver/Spleen: []Hepatosplenomegaly []Organomegaly Absent Musculoskeletal: Inspection of Digits and Nails Cyanosis: []Present [x]Absent Clubbing: []Present [x]Absent Ischemia: []Present [x]Absent Infection: []Present [x]Absent Extremities ANDERSON Equally: Except ([]RUE []RLE []LUE []LLE) Strength/Tone: Intact and Normal ([]RUE []RLE []LUE []LLE) Skin: Inspection []Normal []Rash []Lesion []Ulcer Palpation [x]Warm []Cool [x]Dry []Clammy []Nodules []Induration []Skin-tightening Cap-Refill: [] <3 sec [] >3 seconds (delayed) Neurologic: GCS EYE: 4 - Opens spontaneously GCS MOTOR: 6 - Obeys commands for movement GCS VERBAL: 5 - Oriented to person, place, time Total GCS: 15 [x] Sensation grossly intact Psych: Mental Status Alert: [x]Yes [] No Oriented: []x0 []X1 []X2 [x]x3 Mood/Affect [x]Normal []Flat []Agitated []Depressed []Anxious [x]Calm []Sedated [x]NAD Select Labs within last 24 hours- BMP: Recent Labs 01/19/24174601/20/24347 NA 135 132* K 4.9 5.3* CL 92* 97* CO2 30 27 BUN 47* 50* CREATININE 7.70* 8.34* CALCIUM 8.7 7.2* MG -- 2.0 PHOS -- 6.4* LFTs: Recent Labs 01/19/241746 AST 23 ALT 14 PROT 7.0 ALBUMIN 4.0 BILITOT 0.5 ALKPHOS 88 Glucose: Recent Labs 01/19/24174601/20/24347 GLUCOSE 146* 116* Procal: No results for input(s): PROCAL in the last 72 hours. CBC: Recent Labs 01/19/24174601/19/249 01/20/2434701/20/24 0958 WBC 15.9* -- 20.1* -- HGB 7.7* 9.5* 8.5* 7.9* HCT 24.4* 28.4* 24.9* 23.4* PLT 465* -- 285 -- MCV 93.5 -- 89.2 -- RDW 16.7* -- 15.6* -- ABGs: No results for input(s): PHART, IGL2MWA, PO2ART, NMH0WCN, SO2ART, H4MLKFHI in the last 72 hours. Lactic Acid: No results for input(s): LACTATE in the last 72 hours. INR: Recent Labs 01/19/241757 INR 1.0 Cardiac Injury Profile: Recent Labs 01/19/241746 TROPONINI <0.012 Labs in Last 3 months: Lab Results Component Value Date TSH 2.317 02/22/2022 INR 1.0 01/19/2024 Microbiology- Urine Cx: No results found for: URINECX Blood Cx: No results found for: BLOODCX Sputum Cx: No results found for: RESPCULT Gram Stain: No results found for: LABGRAM PNA PCR: No results found for: HUMANMETAPNE COVID19: No results found for: COVID19 Legionella Ag: No results found for: LEGIONELLAPN Strep Ag: No results for input(s): STREPPNEUMO in the last 72 hours. Imaging- CTA abdomen pelvis 01/18 Impression Descending colon active bleeding. An element of diverticulitis possible. IR angiogram mesenteric 01/18 Impression Small rounded area of contrast within the left lower quadrant which is in the same location as the area of extravasation seen on prior CTA. There is no movement of this contrast blush. This may represent a tiny area of hemorrhage however the vessel supplying this area is too small for cannulization. No intervention was performed at this time. XR left forearm 01/19 Findings There is no evidence for fracture or dislocation. Osteopenia is noted. No bone lesion is identified. Elongated soft tissue calcification present posterior to the proximal ulna. Surgical clips also noted in the antecubital fossa.. Assessment and Plan: Principal Problem: Gastrointestinal hemorrhage, unspecified gastrointestinal hemorrhage type Assessment: Acute blood loss anemia 2/2 descending colonic bleed Acute descending colonic bleed Diverticulitis? Leukocytosis ESRD, on HD (//) Hx HTN Presyncope 2/2 blood loss anemia vs vasovagal episode Hx of seizures; not on home antiepileptic medication Plan: Acute blood loss anemia 2/2 descending colonic bleed Per IR's :01/08 had mesenteric angiogram, small hemorrhage found- vessel supplying area too small for cannulization. Will retain left sheath in femoral artery sheath for 24 hours and consider removing if no concern for re-bleed. Checking H&H q 6 hours; Transfuse < 7 No continued bleeding noted; will monitor and discuss with IR if bleeding reoccurs NPO in case of repeat IR procedure needed Diverticulitis Possible diverticulitis given abdominal pain and leukocytosis Holding off antibiotics for now given improvement in symptoms/bleeding Leukocytosis Trend: 15.9> 20.1 ESRD, on HD () Nephro consulted for IP dialysis Presyncope 2/2 blood loss anemia vs vasovagal episode Fall precautions No fracture of left upper extremity; will continue conservative pain management Hx of seizures; not on home antiepileptic medication Pt reports that she has not been on her home Keppra for approximately 1 year per her PCPs recommendations; as such, holding and will likely discontinue altogether as her hx of seizure occurred while hospitalized and has had none since. GI Prophylaxis: Pantoprazole IV DVT Prophylaxis: SCDs Disposition: Remain in ICU Status Cosigned by Ronald Schneider DO at 01/20/2024 7:36 PM EDT Associated attestation - Ronald Schneider DO - 01/20/2024 7:36 PM EDT See my separate re-eval note on same day of service. ICU Attending Re-eval Statement Subjective: Pt c/o discomfort in RLQ of abd. Feels better than she did yesterday. Ongoing left forearm pain. Objective: Vitals: 01/20/24 0400 01/20/24 0500 01/20/24 0600 01/20/24 0700 BP: 126/76 142/64 145/69 128/83 BP Location: Left arm Patient Position: Lying Pulse: 98 102 101 102 Resp: 12 17 (!) 6 15 Temp: 37.1 C (98.7 F) TempSrc: Temporal SpO2: 97% 99% 95% 98% Weight: Height: Physical Exam Vitals and nursing note reviewed. Constitutional: General: She is not in acute distress. Appearance: She is not ill-appearing, toxic-appearing or diaphoretic. HENT: Head: Normocephalic and atraumatic. Right Ear: External ear normal. Left Ear: External ear normal. Nose: Nose normal. Eyes: General: No scleral icterus. Extraocular Movements: Extraocular movements intact. Conjunctiva/sclera: Conjunctivae normal. Cardiovascular: Rate and Rhythm: Normal rate and regular rhythm. Pulses: Normal pulses. Pulmonary: Effort: Pulmonary effort is normal. No respiratory distress. Breath sounds: Normal breath sounds. Abdominal: General: Bowel sounds are normal. Skin: General: Skin is warm. Capillary Refill: Capillary refill takes less than 2 seconds. Neurological: General: No focal deficit present. Mental Status: She is alert. Psychiatric: Mood and Affect: Mood normal. Behavior: Behavior normal. At the time of today's encounter I reviewed: My colleagues's notes: Yes Laboratory results: Yes Radiographic results: Yes Medications/orders: Yes I reviewed the pt's PMHX, PSHX, FamHX, SOCHX, and ALLERGIES. These sections were w/o change, and if change was found they were updated. Assessment/Plan: LGIB -- descending colon based on CTA. Anemia 2/2 GIB -- monitor for further bleeding. Trend H/H. If re-bleeds call IR. Maintain shealth for today. Consider removal if no bleed recurrence later today. ESRD/HD (tunneled cath; TRS) Hyperkalemia (mild) Hyponatremia (mild) Hyperphos --nephro on consult. Await their recs. No immediate urgent need for HD at this time. Leukocytosis --likely stress demarg but monitor for s/s infxn and fever. Daily CBC. Monitor RLQ symptoms. Sz d/o --change PO keppra to IV while NPO. JOB PRINTER APPRENTICE: LILLIE Preferred Method of Communication/Reaching: EPIC. The above physician should be contacted w/ questions/concerns about items being managed by ICU Team. If there are any questions or concerns related to the info in this note please contact the treatment team or the on-call sterile proc tech directly. I spent 30 minutes of critical care time with the pt which involved more than 51% of the time in coordination of care, medical evaluation, review of records, and/or counseling of the pt regarding her condition/disease state/prognosis on the date of this note. Electronically signed by Ronald Schneider DO 7:55 AM 01/20/24 Consult received and chart reviewed. Patient with ESRD who follows with Dr. Meza. Will change consult to her group. Thank you for considering us for this consult. Signed: Tylor Nelson MD Nephrology [facility] ([facility]) Pager: [phone] Office Office documented in this encounter [facility] 01-25-2024 Plan of care note Problem: Knowledge Deficit Goal: Patient/family/caregiver demonstrates understanding of disease process, treatment plan, medications, and discharge instructions 01/25/2024 1716 by Lenka Adkins RN Outcome: Adequate for Discharge 01/25/2024 1006 by Lenka Adkins RN Outcome: Progressing Problem: Potential for Compromised Skin Integrity Goal: Skin Integrity is Maintained or Improved 01/25/2024 1716 by Lenka Adkins RN Outcome: Adequate for Discharge 01/25/2024 1006 by Lenka Adkins RN Outcome: Progressing Goal: Nutritional status is improving 01/25/20241715 by Lenka Adkins RN Outcome: Adequate for Discharge 01/25/2024 1006 by Lenka Adkins RN Outcome: Progressing Problem: Urinary Incontinence Goal: Perineal skin integrity is maintained or improved 01/25/2024 171 by Lenka Adkins RN Outcome: Adequate for Discharge 01/25/2024 1006 by Lenka Adkins RN Outcome: Progressing Problem: Problem Interventions Goal: Assess Nutritional Intake 01/25/20241715 by Lenka Adkins RN Outcome: Adequate for Discharge 01/25/2024 1006 by Lenka Adkins RN Outcome: Progressing Problem: Pain - Adult Goal: Verbalizes/displays adequate comfort level or baseline comfort level 01/25/20241715 by Lenka Adkins RN Outcome: Adequate for Discharge 01/25/2024 1006 by Lenka Adkins RN Outcome: Progressing Problem: Safety - Adult Goal: Free from fall injury 01/25/2024 171 by Lenka Adkins RN Outcome: Adequate for Discharge 01/25/2024 1006 by Lenka Adkins RN Outcome: Progressing Problem: Discharge Planning Goal: Discharge to home or other facility with appropriate resources 01/25/20241715 by Lenka Adkins RN Outcome: Adequate for Discharge 01/25/2024 1006 by Lenka Adkins RN Outcome: Progressing Problem: Chronic Conditions and Co-morbidities Goal: Patient's chronic conditions and co-morbidity symptoms are monitored and maintained or improved 01/25/20241715 by Lenka Adkins RN Outcome: Adequate for Discharge 01/25/2024 1006 by Lenka Adkins RN Outcome: Progressing [facility] 01-25-2024 Miscellaneous Notes Problem: Knowledge Deficit Goal: Patient/family/caregiver demonstrates understanding of disease process, treatment plan, medications, and discharge instructions 01/25/2024 171 by Lenka Adkins RN Outcome: Adequate for Discharge 01/25/2024 1006 by Lenka Adkins RN Outcome: Progressing Problem: Potential for Compromised Skin Integrity Goal: Skin Integrity is Maintained or Improved 01/25/2024 171 by Lenka Adkins RN Outcome: Adequate for Discharge 01/25/2024 1006 by Lenka Adkins RN Outcome: Progressing Goal: Nutritional status is improving 01/25/20241715 by Lenka Adkins RN Outcome: Adequate for Discharge 01/25/2024 1006 by Lenka Adkins RN Outcome: Progressing Problem: Urinary Incontinence Goal: Perineal skin integrity is maintained or improved 01/25/2024 1716 by Lenka Adkins RN Outcome: Adequate for Discharge 01/25/2024 1006 by Lenka Adkins RN Outcome: Progressing Problem: Problem Interventions Goal: Assess Nutritional Intake 01/25/20241715 by Lenka Adkins RN Outcome: Adequate for Discharge 01/25/2024 1006 by Lenka Adkins RN Outcome: Progressing Problem: Pain - Adult Goal: Verbalizes/displays adequate comfort level or baseline comfort level 01/25/20241715 by Lenka Adkins RN Outcome: Adequate for Discharge 01/25/2024 1006 by Lenka Adkins RN Outcome: Progressing Problem: Safety - Adult Goal: Free from fall injury 01/25/20241715 by Lenka Adkins RN Outcome: Adequate for Discharge 01/25/2024 1006 by Lenka Adkins RN Outcome: Progressing Problem: Discharge Planning Goal: Discharge to home or other facility with appropriate resources 01/25/20241715 by Lenka Adkins RN Outcome: Adequate for Discharge 01/25/2024 1006 by Lenka Adkins RN Outcome: Progressing Problem: Chronic Conditions and Co-morbidities Goal: Patient's chronic conditions and co-morbidity symptoms are monitored and maintained or improved 01/25/2024 1716 by Lenka Adkins RN Outcome: Adequate for Discharge 01/25/2024 1006 by Lenka Adkins RN Outcome: Progressing Problem: Problem Interventions Goal: Assess Nutritional Intake Outcome: Progressing Problem: Pain - Adult Goal: Verbalizes/displays adequate comfort level or baseline comfort level Outcome: Progressing Problem: Discharge Planning Goal: Discharge to home or other facility with appropriate resources Outcome: Progressing POST ENDOSCOPY PROCEDURE TRANSFER REPORT Physician: Procedure completed: colonoscopy Specimens obtained: n/a Medications administered: see anesthesia note Findings: see physician's note Complications: n/a Please call the Main Endoscopy Dept at [phone] for questions. [facility] Ap[facility]va Gonzalez Procedure Date: 01/25/2024 8:33 AM Gender: Female Date of : 1950 Age: 73 Admit Type: Inpatient Note Status: Finalized Endoscopist: Chrissy Gilman MD, [id number] Procedure: Colonoscopy Indications: Rectal bleeding, Acute post hemorrhagic anemia, Iron deficiency anemia secondary to chronic blood loss Findings: Hemorrhoids and skin tags were found on perianal exam. Multiple medium-mouthed and small-mouthed diverticula were found in the sigmoid colon, descending colon, transverse colon and ascending colon. There was evidence of diverticular spasm. There was no evidence of diverticular bleeding. Non-bleeding external hemorrhoids were found during perianal exam. The hemorrhoids were small. The exam was otherwise without abnormality. Impression: - Hemorrhoids found on perianal exam. - Moderate diverticulosis in the sigmoid colon, in the descending colon, in the transverse colon and in the ascending colon. There was evidence of diverticular spasm. There was no evidence of diverticular bleeding. - Non-bleeding external hemorrhoids. - The examination was otherwise normal. - No specimens collected. Recommendation: - [facility]. - Resume previous diet. Avoid seeds, constipation and NSAID if possible . Ok for soft diet today . - Continue present medications. - Repeat colonoscopy is not recommended due to current age (66 years or older) for screening. - Return to GI office PRN. - The findings and recommendations were discussed with the patient. - The findings and recommendations were discussed with the referring physician. Referring MD: Christiano Grove DO Medicines: Monitored Anesthesia Care Procedure: Pre-Anesthesia Assessment: - Prior to the procedure, a History and Physical was performed, and patient medications and allergies were reviewed. The patient's tolerance of previous anesthesia was also reviewed. The risks and benefits of the procedure and the sedation options and risks were discussed with the patient. All questions were answered, and informed consent was obtained. Prior Anticoagulants: The patient has taken no anticoagulant or antiplatelet agents. ASA Grade Assessment: III - A patient with severe systemic disease. After reviewing the risks and benefits, the patient was deemed in satisfactory condition to undergo the procedure. After I obtained informed consent, the scope was passed under direct vision. Throughout the procedure, the patient's blood pressure, pulse, and oxygen saturations were monitored continuously. The Colonoscope was introduced through the anus and advanced to the cecum, identified by appendiceal orifice and ileocecal valve. The colonoscopy was technically difficult and complex due to a redundant colon and significant looping. Successful completion of the procedure was aided by applying abdominal pressure. The patient tolerated the procedure well. The quality of the bowel preparation was adequate. Anatomical landmarks were photographed. Complications: No immediate complications. Procedure Code(s): --- Professional --- 41224, Colonoscopy, flexible; diagnostic, including collection of specimen(s) by brushing or washing, when performed (separate procedure) --- Technical --- 63375, Colonoscopy, flexible; diagnostic, including collection of specimen(s) by brushing or washing, when performed (separate procedure) Diagnosis Code(s): --- Professional --- K64.4, Residual hemorrhoidal skin tags K62.5, Hemorrhage of anus and rectum D62, Acute posthemorrhagic anemia D50.0, Iron deficiency anemia secondary to blood loss (chronic) K57.30, Diverticulosis of large intestine without perforation or abscess without bleeding --- Technical --- K64.4, Residual hemorrhoidal skin tags K62.5, Hemorrhage of anus and rectum D62, Acute posthemorrhagic anemia D50.0, Iron deficiency anemia secondary to blood loss (chronic) K57.30, Diverticulosis of large intestine without perforation or abscess without bleeding CPT copyright 2021 [employer]. All rights reserved. The codes documented in this report are preliminary and upon molder setter review may be revised to meet current compliance requirements. Chrissy Gilman MD 01/25/2024 10:02:22 AM This report has been signed electronically. Number of Addenda: 0 Note Initiated On: 01/25/2024 8:33 AM Problem: Knowledge Deficit Goal: Patient/family/caregiver demonstrates understanding of disease process, treatment plan, medications, and discharge instructions Outcome: Progressing Problem: Potential for Compromised Skin Integrity Goal: Skin Integrity is Maintained or Improved Outcome: Progressing Goal: Nutritional status is improving Outcome: Progressing Problem: Pain - Adult Goal: Verbalizes/displays adequate comfort level or baseline comfort level Outcome: Progressing Problem: Safety - Adult Goal: Free from fall injury Outcome: Progressing Spoke with Dr Collier-patients admitting team-ordered patient to have 10mg hydralazine q6 for SBP>160 Dr Glynn paged regarding post procedure BP's. Department of Internal Medicine Gastroenterology Notified this morning at 0817 by bedside RN that patient only drank 2 glasses of prep and was passing bright red blood. Hgb dropped from 8.0 to 6.4, now 7.7 after 1 unit PRBC, patient has remained hemodynamically stable. Ordered TRBC and plan for IR if bleeding localized. Tentative plan for colonoscopy tomorrow if IR intervention not indicated. Primary team and bedside RN notified. PARK Baker CNP 01/24/2024 1:51 PM Problem: Pain - Adult Goal: Verbalizes/displays adequate comfort level or baseline comfort level Outcome: Progressing Problem: Safety - Adult Goal: Free from fall injury Outcome: Progressing Problem: Chronic Conditions and Co-morbidities Goal: Patient's chronic conditions and co-morbidity symptoms are monitored and maintained or improved Outcome: Progressing Chart reviewed. Patient transferred from ICU to med/surg floor 01/22. +increased bloody bowel movements over night with Hgb 6.4 this AM. Patient received 1U PRBC. Nuclear med bleeding scan today. Current discharge plan is home once medically stable. TCC to continue to follow. Problem: Knowledge Deficit Goal: Patient/family/caregiver demonstrates understanding of disease process, treatment plan, medications, and discharge instructions Outcome: Progressing Problem: Potential for Compromised Skin Integrity Goal: Skin Integrity is Maintained or Improved Outcome: Progressing Goal: Nutritional status is improving Outcome: Progressing Problem: Urinary Incontinence Goal: Perineal skin integrity is maintained or improved Outcome: Progressing Problem: Problem Interventions Goal: Assess Nutritional Intake Outcome: Progressing Problem: Potential for Compromised Skin Integrity Goal: Skin Integrity is Maintained or Improved Outcome: Progressing Problem: Potential for Compromised Skin Integrity Goal: Nutritional status is improving Outcome: Progressing Problem: Urinary Incontinence Goal: Perineal skin integrity is maintained or improved Outcome: Progressing The patient is Moderately Stable - Low risk of patient condition declining or worsening Problem: Knowledge Deficit Goal: Patient/family/caregiver demonstrates understanding of disease process, treatment plan, medications, and discharge instructions Outcome: Progressing Problem: Potential for Compromised Skin Integrity Goal: Skin Integrity is Maintained or Improved Outcome: Progressing Goal: Nutritional status is improving Outcome: Progressing Problem: Urinary Incontinence Goal: Perineal skin integrity is maintained or improved Outcome: Progressing Problem: Problem Interventions Goal: Assess Nutritional Intake Outcome: Progressing Problem: Knowledge Deficit Goal: Patient/family/caregiver demonstrates understanding of disease process, treatment plan, medications, and discharge instructions Outcome: Progressing Problem: Potential for Compromised Skin Integrity Goal: Skin Integrity is Maintained or Improved Outcome: Progressing Goal: Nutritional status is improving Outcome: Progressing Problem: Urinary Incontinence Goal: Perineal skin integrity is maintained or improved Outcome: Progressing Problem: Problem Interventions Goal: Assess Nutritional Intake Outcome: Progressing Care Management Progress Note Patient remains in [facility] ICU with GI bleed/acute blood anemia. VSS, on RA, in NSR on tele, transfused PRBC again overnight, iHD per outpatient schedule (T/H/S at [facility]) sheath to be removed and PT/OT evals pending. DCP-home with no anticipated needs. Length of Stay (Days): 2 GMLOS: 4.5 Care Managment Initial Assessment Date: 01/20/2024 Patient Name: Apoorva Gonzalez : 1950 Patient Information Source of Information: Patient Cognition/Language: WFL - Within Functional Limits 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 as indicated: Yes Confirmation of Payer with patient/family: Yes Payer Name: [employer] Medicare [place]: No Confirmation of Primary Care Physician: Confirmed PCP Name: Dr. Spain Seen in last 2 years?: Yes Primary Caregiver: Self If assistance needed, confirmed caregiver ready, willing and able to care for patient at discharge: Confirmed with: Living Arrangements Current Residence: Apartment Number of Floors 1 Number of Entry Steps: (elevator if needed) Bed/Bath Levels: Both first floor Facility: Facility Name: Plan to Return: Lives with: Alone Support Systems: Family members Activities of Daily Living Ambulation: Independent Bathing/Dressing: Independent Elimination/Continence/Toileting: Independent Feeding: Independent Who Assists with Activities of Daily Living: Instrumental Activities of Daily Living Prescription Coverage: Yes [facility] Medication Management: Independent Transportation/Shopping: Independent Transportation Mode: Car Needs Assistance with Transportation at Discharge: No Meal Preparation: Independent Laundry/Cleaning: Independent Finances/Bill Paying: Independent Communication: Independent Types of Care Services/Equipment Utilized Care Services: Dialysis Type: Hemo Dialysis Provider Name/Location: [facility] Dialysis Schedule: Transportation to Dialysis: drives self Durable Medical Equipment: Patient's Goal/Discharge Plan Patient expects to be discharged to: home Discharge Planning Actions: No needs identified Patient's Choice Rights and [employer] and Collaborative Relationships Disclosed as Indicated for Post-Acute Care: Interdisciplinary Team Engagement: Social Work Referral for: Additional Information: Patient admitted to [facility] ICU with acute blood loss anemia. Spoke with patient at bedside, introduced self and role. Patient from home alone, is independent, has PCP and prescription coverage, drives self to HD at [facility], will have a ride home and denies discharge needs. Christine Ribeiro, CYNTHIA documented in this encounter [facility] 01-25-2024 Hospital Discharge instructions Leticia Collier MD - 01/25/2024 5:14 PM EDT No nsaids,no seeds, avoid constipation Leticia Collier MD - 01/25/2024 5:03 PM EDT Up as able Leticia Collier MD - 01/25/2024 5:03 PM EDT Soft diet documented in this encounter [facility] 01-25-2024 Hospital course Narrative Discharge Summary Apoorva Gonzalez : 1950 ADMIT DATE: 01/19/2024 DISCHARGE DATE: 01/25/2024 PRIMARY CARE PHYSICIAN: Roxie Spain VISIT STATUS: Admission CODE STATUS: Full Code DISCHARGE DIAGNOSES: Principal Problem: Gastrointestinal hemorrhage, unspecified gastrointestinal hemorrhage type Active Problems: Anemia Lower GI bleed with recurrence Anemia secondary to GI bleed Leukocytosis trending down Chronic issues-- End-stage renal disease on hemodialysis Hypertension Seizure disorder HOSPITAL COURSE: 73 y.o. F with a PMHx significant for ESRD on HD (//), HTN, hx seizures (not currently on anti-epileptic therapy) who was initially admitted to the [facility] 01/18 for anemia 2/2 descending colonic bleed. Received 2u pRBC day of admit. IR attempted to embolize, but was unable with the location. A femoral arterial sheath was left in place to stop the bleeding so she was transferred to the ICU. Required 1u pRBC transfusion overnight into the . She has remained stable throughout admission and her arterial sheath was removed 01/20 morning without complication. Patient transferred out of ICU 01/22 . Pt hb dropped received prbc transfusion. RBC scan postive. IR embolization, no source of bleed. Post colonoscopy today. Tolerating diet HB stable. Pt is insisting to be discharged. Follow up with pcp with repeat cbc in 2 days.follow up with GI. Continue soft diet Nephrology followed for HD.discharge home today per pt request. SIGNIFICANT DIAGNOSTIC STUDIES: As above CONSULTANTS: GI,critical care RECOMMENDED NEXT STEPS: As above DISCHARGE MEDICATIONS: Medication List START taking these medications polyethylene glycol (PEG) 3350 17 g packet Commonly known as: Miralax Take 17 g by mouth Daily as needed (constipation) for up to 3 days. CHANGE how you take these medications amLODIPine 5 MG tablet Commonly known as: Norvasc Take 1 tablet (5 mg) by mouth daily. What changed: how much to take CONTINUE taking these medications ASTRAGALUS PO atorvastatin 40 MG tablet Commonly known as: Lipitor Take 1 tablet (40 mg) by mouth Nightly. calcium acetate 667 MG tablet Commonly known as: Phoslo cholecalciferol 125 MCG (5000 UT) capsule Commonly known as: Vitamin D-3 levETIRAcetam 500 MG tablet Commonly known as: Keppra Take 1 tablet (500 mg) by mouth daily. NON FORMULARY NON FORMULARY omega-3 1000 MG capsule Commonly known as: Fish Oil vitamin B-1 250 MG tablet STOP taking these medications VITAMIN E PO Where to Get Your Medications These medications were sent to [id number] - [place], [place] - [address] [facility] [id number] polyethylene glycol (PEG) 3350 17 g packet DIET: Adult diet Dysphagia - Soft and Bite Sized; Low Potassium (Less than 3000 mg/day) ACTIVITY: No restriction. COMPLEXITY OF FOLLOW UP: [] Moderate Complexity: follow up within 7-14 calendar days (25496) [] Severe Complexity: follow up within 7 calendar days (14267) FOLLOW UP TESTING, PENDING RESULTS OR REFERRALS AT TRANSITIONAL CARE VISIT: [] Yes [] No PENDING STUDIES: DISPOSITION: Home FACILITY/HOME CARE AGENCY NAME: Follow up with Roxie Gomez[address] [place] [address] Follow up cbc in 2 days on INSTRUCTIONS TO MA/SW: Please call patient on day after discharge (must document patient contacted within 2 business days of discharge). FOLLOW UP QUESTIONS FOR MA/SW: 1. Did you get medications filled and taking them as instructed from discharge? 2. Are you following your discharge instructions from your hospital stay? 3. Please confirm patient is scheduled for a follow up appointment within the above time frame. DISCHARGE TIME:more than 32 mins SIGNED: Leticia Collier MD 01/25/2024, 5:06 PM documented in this encounter [facility] 01-25-2024 Nurse Note Patient Name: Apoorva Gonzalez Patient : 1950 Acct: [id number] Date of Admission: 01/19/2024 [facility]: [facility] Code Status: Full Code Allergies: No Known Allergies Diagnosis: Patient Active Problem List Diagnosis Hypertensive emergency Gastrointestinal hemorrhage, unspecified gastrointestinal hemorrhage type Anemia Treatment: Hemodilaysis 2:1 Priority: Routine Location: Acute Room Diabetic: No NPO: No Isolation Precautions: Dialysis Consent for Treatment Verified: Yes Blood Consent Verified: Not Applicable ICEBOAT: Identify, Consent, Equipment, HepB Status, Orders Complete, Access Verified, Timeliness Second Clinician Verifying: Roldan Garcia Time out performed prior to access at 1254. Report Received from Primary RN at 1140. Primary RN (First Initial, Last Name, Title): Joann ADKINS RN Incapacitated Nurse Education Completed: quinn julien rn HBsAg ONLY: Date Drawn: March 25, 2023 Results: Negative HBsAb: Date Drawn: March 25, 2023 Results: Immune >10 Order Dialyzer: Nipro Na+ Modeling: Not Applicable Dialysate Temperature (C): 36 Blood Flow Rate (BFR): 350 Dialysate Flow Rate (DFR): 600 Access to be Utilized Access: AVF Location: Upper Extremity Side: Left Needle gauge: 16 + Bruit/Thrill: Yes First Use X-ray Verified: Not Applicable OK to use line order: Not Applicable Site Assessment: Signs and Symptoms of Infection/Inflammation: None If yes: Not Applicable Dressing: na Site Prep: Medical Aseptic Technique Dressing Changed this Treatment: na If yes, by whom: na Date of Last Dressing Change: na na [address]?: na Red Alcohol Caps in place?: na Gauze Dressing?: na Non-Dialysis Use?: No Comment: Flows: Good and Patent If access problem, who was notified: Pre and Post-Assessment Patient Vitals for the past 8 hrs: Level of Consciousness Oriented X Heart Rhythm O2 Device Bilateral Breath Sounds Skin Condition/Temp Abdomen Inspection Bowel Sounds (All Quadrants) 01/25/24 1254 Alert (0) 3 Regular None (Room air) Clear Warm;Dry;No swelling Soft Active 01/25/24 1613 Alert (0) 3 Regular None (Room air) Clear Warm;Dry;No swelling Soft Active Labs Lab Results Component Value Date/Time WBC 15.1 (H) 01/25/20242 HGB 8.6 (L) 01/25/20242 HCT 26.4 (L) 01/25/20242 PLT 400 01/25/20242 NA 136 01/25/20242 K 4.6 01/25/20242 CL 101 01/25/20242 CO2 18 (L) 01/25/20242 BUN 36 (H) 01/25/20242 CREATININE 8.47 (H) 01/25/20242 CALCIUM 8.3 (L) 01/25/20242 PHOS 5.7 (H) 01/25/20242 IV Drips and Rate/Dose Safety - Before each treatment: Dialysis Machine No.: [id number] RO Machine Number: [id number] Dialyzer Lot No.: [id number] Tubing Lot Number: [id number] All Connections Secure: Yes Venous Parameters Set: Yes Arterial Parameters Set: Yes NS Bag: Yes Saline Line Double Clamped: Yes Dialyzer: Nipro Prime Volume (mL): 200 mL RO Machine Number: [id number] RO Machine Log Sheet Completed: Yes Machine Alarm Self Test: Completed, Passed (1250) (01/25/24 1254) Air Foam Detector: Tested, Proper Function, pH Reading Extracorporeal Circuit Tested for Integrity: Yes Machine Conductivity: 13.6 Manual Conductivity: 13.6 Machine Ph: 7 Manual Ph: 7.4 Bleach Test (Neg): Yes Bath Temperature: 36 C (96.8 F) Conductivity Meter Serial #: [id number] Machine Functioning Alarm Free? Yes Dialysis Bath: K+ (Potassium): 2 Ca+ (Calcium): 2.5 Na+ (Sodium): 137 HCO3 (Bicarb): 32 Bicarbonate Concentrate Lot No.: [id number] Acid Concentrate Lot No.: [id number] Chlorine Testing - Before each treatment and every 4 hours: Time On: 1259 Time Off: 1559 Treatment Goal: 3 Weight Height: 162.6 cm (5' 4) (01/25/24826) Weight: 52.2 kg (115 lb) (01/25/24826) BMI (Calculated): 19.73 (01/25/24826) 1st check: less than 0.1 ppm at: 1145 2nd check: less than 0.1 ppm at: 1445 3rd check: Not Applicable (if greater than 0.1 ppm, then check every 30 minutes from secondary) Access Flows and Pressures Patient Vitals for the past 8 hrs: Blood Flow Rate (mL/min) Ultrafiltration Rate (ml/hr) Arterial Pressure (mmHg) Venous Pressure (mmHg) TMP DFR Access Visible Intra-Hemodialysis Comments 01/25/24 1259 200 mL/min 170 ml/hr -10 mmHg 90 mmHg 50 600 Yes Tx iniated call light within reach 01/25/24 1300 350 mL/min 170 ml/hr -140 mmHg 180 mmHg 70 600 Yes BFr increased 01/25/24 1315 350 mL/min 170 ml/hr -160 mmHg 200 mmHg 70 600 Yes Pt awake on cell phone rmv 53 01/25/24 1330 350 mL/min 170 ml/hr -160 mmHg 200 mmHg 60 600 Yes Pt on cell phone rmv 89 01/25/24 1345 350 mL/min 170 ml/hr -140 mmHg 190 mmHg 60 600 Yes Pt resting rmv 135 01/25/24 1400 350 mL/min 170 ml/hr -140 mmHg 190 mmHg 60 600 Yes Pt resting rmv 175 01/25/24 1415 350 mL/min 170 ml/hr -140 mmHg 210 mmHg 40 600 Yes Pt resting rmv 225 01/25/24 1430 350 mL/min 170 ml/hr -140 mmHg 210 mmHg 30 600 Yes Pt resting rmv 266 01/25/24 1445 350 mL/min 170 ml/hr -140 mmHg 210 mmHg 10 600 Yes Pt resting rmv 297 01/25/24 1500 350 mL/min 170 ml/hr -150 mmHg 200 mmHg [address] Fabrizio Montano rmv 352 01/25/24 1515 350 mL/min 170 ml/hr -150 mmHg 240 mmHg 60 600 Yes Pt awake alert rmv 374 01/25/24 1530 350 mL/min 170 ml/hr -140 mmHg 190 mmHg 50 600 Yes pt alert, stable, removed 417 01/25/24 1559 -- -- -- -- -- -- -- Tx completed rmv 500 Vital Signs Patient Vitals for the past 24 hrs: BP Temp Temp src Pulse Resp SpO2 Height Weight 01/25/24 1623 158/77 36.6 C (97.9 F) Temporal 107 18 99 % -- -- 01/25/24 1613 (!) 16974 36.7 C (98 F) -- 95 -- -- -- -- 01/25/24 1559 (!) 173/64 -- -- 92 -- -- -- -- 01/25/24 1530 158/77 -- -- 93 -- -- -- -- 01/25/24 1515 154/58 -- -- 101 -- -- -- -- 01/25/24 1500 153/71 -- -- 98 -- -- -- -- 01/25/24 1445 (!) 166/71 -- -- 82 -- -- -- -- 01/25/24 1430 150/73 -- -- 93 -- -- -- -- 01/25/24 1415 151/78 -- -- 91 -- -- -- -- 01/25/24 1400 150/74 -- -- 91 -- -- -- -- 01/25/24 1345 (!) 169/78 -- -- 92 -- -- -- -- 01/25/24 1330 149/68 -- -- 90 -- -- -- -- 01/25/24 1315 148/68 -- -- 92 -- -- -- -- 01/25/24 1300 155/73 -- -- 95 -- -- -- -- 01/25/24 1259 145/75 -- -- 96 -- -- -- -- 01/25/24 1254 141/63 37.1 C (98.7 F) -- 96 18 100 % -- -- 01/25/24 1007 (!) 146/56 -- -- 91 18 100 % -- -- 01/25/24 1000 137/53 -- -- 87 18 100 % -- -- 01/25/24 0953 (!) 122/45 -- -- 89 18 100 % -- -- 01/25/24 0949 (!) 119/44 36.7 C (98.1 F) -- 88 16 100 % -- -- 01/25/24 0827 (!) 147/58 36.2 C (97.2 F) Temporal 90 18 100 % 1.626 m (5' 4) 52.2 kg (115 lb) 01/25/24 0700 137/66 36.5 C (97.7 F) Temporal 89 18 100 % -- -- 01/24/24 195 148/74 37.1 C (98.7 F) Temporal 108 16 100 % -- -- 01/24/24 1900 158/68 -- -- 106 20 100 % -- -- 01/24/24 1845 (!) 175/71 -- -- 105 20 100 % -- -- 01/24/24 1830 (!) 170/79 -- -- 94 18 100 % -- -- 01/24/24 1815 (!) 178/68 -- -- 94 20 100 % -- -- 01/24/24 1800 (!) 173/72 -- -- 93 20 100 % -- -- 01/24/24 1745 (!) 170/66 -- -- 91 18 100 % -- -- 01/24/24 1734 (!) 168/65 36.4 C (97.5 F) Temporal 95 18 100 % -- -- 01/24/24 1716 157/76 -- -- 98 15 99 % -- -- 01/24/24 1715 -- -- -- -- -- 91 % -- -- 01/24/24 1714 -- -- -- 94 (!) 11 -- -- -- 01/24/24 1710 158/75 -- -- 95 (!) 10 100 % -- -- 01/24/24 1705 156/65 -- -- 97 12 100 % -- -- 01/24/24 1700 157/72 -- -- 102 14 99 % -- -- 01/24/24 1655 (!) 162/72 -- -- 97 (!) 7 100 % -- -- 01/24/24 1650 155/72 -- -- 98 13 99 % -- -- 01/24/24 1645 152/72 -- -- 101 15 99 % -- -- 01/24/24 1640 (!) 162/75 -- -- 101 17 100 % -- -- 01/24/24 1636 (!) 169/80 -- -- 102 13 100 % -- -- 01/24/24 1635 (!) 169/80 -- -- 102 15 100 % -- -- 01/24/24 1630 155/70 -- -- 105 17 100 % -- -- Post-Dialysis Arterial Catheter Locking Solution: Not Applicable Venous Catheter Locking Solution: Not Applicable Post-Treatment Procedures: Blood returned, Access bleeding time < 10 minutes Machine Disinfection Process: Acid/Vinegar Clean, Heat Disinfect, Exterior Machine Disinfection Rinseback Volume (mL): 300 mL Total Liters Processed (L/min): 60 L/min Dialyzer Clearance: Lightly streaked Hemodialysis Intake (ml): 500 ml Hemodialysis Output (ml): 500 ml NET Removed (ml): 0 ml Tolerated Treatment: Good Patient Response to Treatment: stable Physician Notified: No Patient Disposition: Remain in ICU/ED Charge: $ IP Hemodialysis Charge: Hemodialysis Provider Notification Provider Notification Reason for Communication: Evaluate (High BPs with dialysis, 01/12 pain in right leg/hip area) Provider Name: Dr. Darling Provider Role: Resident Method of Communication: Secure chat Response: At bedside Notification Time: 1630 Shift Event: Fall Reason for Communication: Evaluate (High BPs with dialysis, 10/10 pain in right leg/hip area) Provider Role: Resident Method of Communication: Secure chat Response: At bedside Notification Time: 1630 Handoff complete and report given to Primary RN at 1609. Primary RN (First Initial, Last Name, Title): Joann ADKINS RN Education Person Educated: Patient Knowledge Base: Substantial Barriers to Learning?: None Preferred method of Learning: Oral Topic(s): call light, Access Care, Signs and Symptoms of Infection, Fluid Management, and Procedural Teaching Tools: Explanation Response to Education: Verbalized Understanding [facility] 01-25-2024 Nurse Note Patient Name: Apoorva Gonzalez Patient : 1950 Acct: [id number] Date of Admission: 01/19/2024 Room/Bed: [facility] B Code Status: Full Code Allergies: No Known Allergies Diagnosis: Patient Active Problem List Diagnosis Hypertensive emergency Gastrointestinal hemorrhage, unspecified gastrointestinal hemorrhage type Anemia Treatment: Hemodilaysis 2:1 Priority: Routine Location: Acute Room Diabetic: No NPO: No Isolation Precautions: Dialysis Consent for Treatment Verified: Yes Blood Consent Verified: Not Applicable ICEBOAT: Identify, Consent, Equipment, HepB Status, Orders Complete, Access Verified, Timeliness Second Clinician Verifying: Roldan Garcia Time out performed prior to access at 1254. Report Received from Primary RN at 1140. Primary RN (First Initial, Last Name, Title): Joann ADKINS RN Incapacitated Nurse Education Completed: quinn julien rn HBsAg ONLY: Date Drawn: March 25, 2023 Results: Negative HBsAb: Date Drawn: March 25, 2023 Results: Immune >10 Order Dialyzer: Nipro Na+ Modeling: Not Applicable Dialysate Temperature (C): 36 Blood Flow Rate (BFR): 350 Dialysate Flow Rate (DFR): 600 Access to be Utilized Access: AVF Location: Upper Extremity Side: Left Needle gauge: 16 + Bruit/Thrill: Yes First Use X-ray Verified: Not Applicable OK to use line order: Not Applicable Site Assessment: Signs and Symptoms of Infection/Inflammation: None If yes: Not Applicable Dressing: na Site Prep: Medical Aseptic Technique Dressing Changed this Treatment: na If yes, by whom: na Date of Last Dressing Change: na [address]?: na Red Alcohol Caps in place?: na Gauze Dressing?: na Non-Dialysis Use?: No Comment: Flows: Good and Patent If access problem, who was notified: Pre and Post-Assessment Patient Vitals for the past 8 hrs: Level of Consciousness Oriented X Heart Rhythm O2 Device Bilateral Breath Sounds Skin Condition/Temp Abdomen Inspection Bowel Sounds (All Quadrants) 01/25/24 1254 Alert (0) 3 Regular None (Room air) Clear Warm;Dry;No swelling Soft Active 01/25/24 1613 Alert (0) 3 Regular None (Room air) Clear Warm;Dry;No swelling Soft Active Labs Lab Results Component Value Date/Time WBC 15.1 (H) 01/25/20242 HGB 8.6 (L) 01/25/20242 HCT 26.4 (L) 01/25/20242 PLT 400 01/25/20242 NA 136 01/25/20242 K 4.6 01/25/20242 CL 101 01/25/20242 CO2 18 (L) 01/25/20242 BUN 36 (H) 01/25/20242 CREATININE 8.47 (H) 01/25/20242 CALCIUM 8.3 (L) 01/25/20242 PHOS 5.7 (H) 01/25/20242 IV Drips and Rate/Dose Safety - Before each treatment: Dialysis Machine No.: [id number] RO Machine Number: [id number] Dialyzer Lot No.: [id number] Tubing Lot Number: [id number] All Connections Secure: Yes Venous Parameters Set: Yes Arterial Parameters Set: Yes NS Bag: Yes Saline Line Double Clamped: Yes Dialyzer: Nipro Prime Volume (mL): 200 mL RO Machine Number: [id number] RO Machine Log Sheet Completed: Yes Machine Alarm Self Test: Completed, Passed (1250) (01/25/24 1254) Air Foam Detector: Tested, Proper Function, pH Reading Extracorporeal Circuit Tested for Integrity: Yes Machine Conductivity: 13.6 Manual Conductivity: 13.6 Machine Ph: 7 Manual Ph: 7.4 Bleach Test (Neg): Yes Bath Temperature: 36 C (96.8 F) Conductivity Meter Serial #: [id number] Machine Functioning Alarm Free? Yes Dialysis Bath: K+ (Potassium): 2 Ca+ (Calcium): 2.5 Na+ (Sodium): 137 HCO3 (Bicarb): 32 Bicarbonate Concentrate Lot No.: [id number] Acid Concentrate Lot No.: [id number] Chlorine Testing - Before each treatment and every 4 hours: Time On: 1259 Time Off: 1559 Treatment Goal: 3 Weight Height: 162.6 cm (5' 4) (01/25/24826) Weight: 52.2 kg (115 lb) (01/25/24826) BMI (Calculated): 19.73 (01/25/24826) 1st check: less than 0.1 ppm at: 1145 2nd check: less than 0.1 ppm at: 1445 3rd check: Not Applicable (if greater than 0.1 ppm, then check every 30 minutes from secondary) Access Flows and Pressures Patient Vitals for the past 8 hrs: Blood Flow Rate (mL/min) Ultrafiltration Rate (ml/hr) Arterial Pressure (mmHg) Venous Pressure (mmHg) TMP DFR Access Visible Intra-Hemodialysis Comments 01/25/24 1259 200 mL/min 170 ml/hr -10 mmHg 90 mmHg 50 600 Yes Tx iniated call light within reach 01/25/24 1300 350 mL/min 170 ml/hr -140 mmHg 180 mmHg 70 600 Yes BFr increased 01/25/24 1315 350 mL/min 170 ml/hr -160 mmHg 200 mmHg 70 600 Yes Pt awake on cell phone rmv 53 01/25/24 1330 350 mL/min 170 ml/hr -160 mmHg 200 mmHg 60 600 Yes Pt on cell phone rmv 89 01/25/24 1345 350 mL/min 170 ml/hr -140 mmHg 190 mmHg 60 600 Yes Pt resting rmv 135 01/25/24 1400 350 mL/min 170 ml/hr -140 mmHg 190 mmHg 60 600 Yes Pt resting rmv 175 01/25/24 1415 350 mL/min 170 ml/hr -140 mmHg 210 mmHg 40 600 Yes Pt resting rmv 225 01/25/24 1430 350 mL/min 170 ml/hr -140 mmHg 210 mmHg 30 600 Yes Pt resting rmv 266 01/25/24 1445 350 mL/min 170 ml/hr -140 mmHg 210 mmHg 10 600 Yes Pt resting rmv 297 01/25/24 1500 350 mL/min 170 ml/hr -150 mmHg 200 mmHg [address] Fabrizio Montano rmv 352 01/25/24 1515 350 mL/min 170 ml/hr -150 mmHg 240 mmHg 60 600 Yes Pt awake alert rmv 374 01/25/24 1530 350 mL/min 170 ml/hr -140 mmHg 190 mmHg 50 600 Yes pt alert, stable, removed 417 01/25/24 1559 -- -- -- -- -- -- -- Tx completed rmv 500 Vital Signs Patient Vitals for the past 24 hrs: BP Temp Temp src Pulse Resp SpO2 Height Weight 01/25/24 1623 158/77 36.6 C (97.9 F) Temporal 107 18 99 % -- -- 01/25/24 1613 (!) 16974 36.7 C (98 F) -- 95 -- -- -- -- 01/25/24 1559 (!) 173/64 -- -- 92 -- -- -- -- 01/25/24 1530 158/77 -- -- 93 -- -- -- -- 01/25/24 1515 154/58 -- -- 101 -- -- -- -- 01/25/24 1500 153/71 -- -- 98 -- -- -- -- 01/25/24 1445 (!) 166/71 -- -- 82 -- -- -- -- 01/25/24 1430 150/73 -- -- 93 -- -- -- -- 01/25/24 1415 151/78 -- -- 91 -- -- -- -- 01/25/24 1400 150/74 -- -- 91 -- -- -- -- 01/25/24 1345 (!) 169/78 -- -- 92 -- -- -- -- 01/25/24 1330 149/68 -- -- 90 -- -- -- -- 01/25/24 1315 148/68 -- -- 92 -- -- -- -- 01/25/24 1300 155/73 -- -- 95 -- -- -- -- 01/25/24 1259 145/75 -- -- 96 -- -- -- -- 01/25/24 1254 141/63 37.1 C (98.7 F) -- 96 18 100 % -- -- 01/25/24 1007 (!) 146/56 -- -- 91 18 100 % -- -- 01/25/24 1000 137/53 -- -- 87 18 100 % -- -- 01/25/24 0953 (!) 122/45 -- -- 89 18 100 % -- -- 01/25/24 0949 (!) 119/44 36.7 C (98.1 F) -- 88 16 100 % -- -- 01/25/24 0827 (!) 147/58 36.2 C (97.2 F) Temporal 90 18 100 % 1.626 m (5' 4) 52.2 kg (115 lb) 01/25/24 0700 137/66 36.5 C (97.7 F) Temporal 89 18 100 % -- -- 01/24/24 1953 148/74 37.1 C (98.7 F) Temporal 108 16 100 % -- -- 01/24/24 1900 158/68 -- -- 106 20 100 % -- -- 01/24/24 1845 (!) 175/71 -- -- 105 20 100 % -- -- 01/24/24 1830 (!) 170/79 -- -- 94 18 100 % -- -- 01/24/24 1815 (!) 178/68 -- -- 94 20 100 % -- -- 01/24/24 1800 (!) 173/72 -- -- 93 20 100 % -- -- 01/24/24 1745 (!) 170/66 -- -- 91 18 100 % -- -- 01/24/24 1734 (!) 168/65 36.4 C (97.5 F) Temporal 95 18 100 % -- -- 01/24/24 1716 157/76 -- -- 98 15 99 % -- -- 01/24/24 1715 -- -- -- -- -- 91 % -- -- 01/24/24 1714 -- -- -- 94 (!) 11 -- -- -- 01/24/24 1710 158/75 -- -- 95 (!) 10 100 % -- -- 01/24/24 1705 156/65 -- -- 97 12 100 % -- -- 01/24/24 1700 157/72 -- -- 102 14 99 % -- -- 01/24/24 1655 (!) 162/72 -- -- 97 (!) 7 100 % -- -- 01/24/24 1650 155/72 -- -- 98 13 99 % -- -- 01/24/24 1645 152/72 -- -- 101 15 99 % -- -- 01/24/24 1640 (!) 162/75 -- -- 101 17 100 % -- -- 01/24/24 1636 (!) 169/80 -- -- 102 13 100 % -- -- 01/24/24 1635 (!) 169/80 -- -- 102 15 100 % -- -- 01/24/24 1630 155/70 -- -- 105 17 100 % -- -- Post-Dialysis Arterial Catheter Locking Solution: Not Applicable Venous Catheter Locking Solution: Not Applicable Post-Treatment Procedures: Blood returned, Access bleeding time < 10 minutes Machine Disinfection Process: Acid/Vinegar Clean, Heat Disinfect, Exterior Machine Disinfection Rinseback Volume (mL): 300 mL Total Liters Processed (L/min): 60 L/min Dialyzer Clearance: Lightly streaked Hemodialysis Intake (ml): 500 ml Hemodialysis Output (ml): 500 ml NET Removed (ml): 0 ml Tolerated Treatment: Good Patient Response to Treatment: stable Physician Notified: No Patient Disposition: Remain in ICU/ED Charge: $ IP Hemodialysis Charge: Hemodialysis Provider Notification Provider Notification Reason for Communication: Evaluate (High BPs with dialysis, 10/10 pain in right leg/hip area) Provider Name: Dr. Darling Provider Role: Resident Method of Communication: Secure chat Response: At bedside Notification Time: 1630 Shift Event: Fall Reason for Communication: Evaluate (High BPs with dialysis, 10/10 pain in right leg/hip area) Provider Role: Resident Method of Communication: Secure chat Response: At bedside Notification Time: 1630 Handoff complete and report given to Primary RN at 1609. Primary RN (First Initial, Last Name, Title): Joann ADKINS RN Education Person Educated: Patient Knowledge Base: Substantial Barriers to Learning?: None Preferred method of Learning: Oral Topic(s): call light, Access Care, Signs and Symptoms of Infection, Fluid Management, and Procedural Teaching Tools: Explanation Response to Education: Verbalized Understanding Patient arrived from room [facility], Dr. Suárez in to speak with the patient regarding mesenteric embo, consent obtained. Patient was placed supine on exam table prepped and draped in sterile fashion. Telemetry monitors placed, conscious sedation administered. Patient tolerated procedure well. Transfer back to room. Wound Care consulted for Pressure Injury Prevention. Pt's Arnol= 22, pt is no longer at risk. Skin Care Precaution order set in place. Dietitian consult in place. Will continue to follow peripherally. Please voicera or secure chat message with any questions. Radha Lopes RN, [facility] Patient Name: Apoorva Gonzalez Patient : 1950 Acct: [id number] Date of Admission: 01/19/2024 Room/Bed: T1-126/T1-126 A Code Status: DNR-CCA Allergies: No Known Allergies Diagnosis: Patient Active Problem List Diagnosis Hypertensive emergency Gastrointestinal hemorrhage, unspecified gastrointestinal hemorrhage type Treatment: Hemodialysis 1:1 Priority: Routine Location: ICU Diabetic: No NPO: No Isolation Precautions: Dialysis Consent for Treatment Verified: Yes Blood Consent Verified: Not Applicable ICEBOAT: Identify, Consent, Equipment, HepB Status, Orders Complete, Access Verified, Timeliness Second Clinician Verifying: Jose Andrea RN Time out performed prior to access at 1537. Report Received from Primary RN at 1520. Primary RN (First Initial, Last Name, Title): Jose Andrea RN Incapacitated Nurse Education Completed: Yes O.A. HBsAg ONLY: Date Drawn: March 25, 2023 Results: Negative HBsAb: Date Drawn: March 25, 2023 Results: Immune >10 Order Dialyzer: Nipro Na+ Modeling: Not Applicable Dialysate Temperature (C): 36 Blood Flow Rate (BFR): 350 Dialysate Flow Rate (DFR): 600 Access to be Utilized Access: AVF Location: Upper Extremity Side: Left Needle gauge: 16 + Bruit/Thrill: Yes First Use X-ray Verified: Not Applicable OK to use line order: Not Applicable Site Assessment: Signs and Symptoms of Infection/Inflammation: None If yes: Not Applicable Dressing: na Site Prep: Medical Aseptic Technique Dressing Changed this Treatment: na If yes, by whom: na Date of Last Dressing Change: Not Applicable Antimicrobial Patch in place?: NA Red Alcohol Caps in place?: NA Gauze Dressing?: NA Non-Dialysis Use?: NA Comment: Flows: Good and Patent If access problem, who was notified: Pre and Post-Assessment Patient Vitals for the past 8 hrs: Level of Consciousness Oriented X Heart Rhythm O2 Device Bilateral Breath Sounds Skin Color Skin Condition/Temp Appetite Abdomen Inspection Bowel Sounds (All Quadrants) Edema RUE Edema LUE Edema RLE Edema LLE Edema Pain Interventions 01/22/24 1530 Alert (0) 3 Regular None (Room air) Clear [place] Warm;Dry Good Soft;Rounded Active Other (Comment) None None None None -- 01/22/24 1834 -- -- -- -- -- -- -- -- -- -- -- -- -- -- -- Medication (See MAR) 01/22/24 1858 Alert (0) 3 Regular None (Room air) Clear -- Warm;Dry -- Soft;Rounded Active -- -- -- -- -- Medication (See MAR) Labs Lab Results Component Value Date/Time WBC 17.7 (H) 01/22/2024 001 HGB 8.0 (L) 01/22/2024 001 HCT 24.3 (L) 01/22/2024 001 PLT 292 01/22/2024 0010 NA 133 (L) 01/22/20249 K 4.8 01/22/20249 CL 102 01/22/20249 CO2 21 (L) 01/22/20249 BUN 49 (H) 01/22/20249 CREATININE 7.66 (H) 01/22/20249 CALCIUM 6.7 (L) 01/22/20249 PHOS 5.5 (H) 01/22/20249 IV Drips and Rate/Dose Safety - Before each treatment: Dialysis Machine No.: [id number] RO Machine Number: [id number] Dialyzer Lot No.: [id number] Tubing Lot Number: [id number] All Connections Secure: Yes Venous Parameters Set: Yes Arterial Parameters Set: Yes NS Bag: Yes Saline Line Double Clamped: Yes Dialyzer: Nipro Prime Volume (mL): 200 mL RO Machine Number: [id number] RO Machine Log Sheet Completed: Yes Machine Alarm Self Test: Completed, Passed (01/22/241536) Air Foam Detector: pH Reading Extracorporeal Circuit Tested for Integrity: Yes Machine Conductivity: 13.7 Manual Conductivity: 13.8 Machine Ph: 7 Manual Ph: 7.6 Bleach Test (Neg): Yes Bath Temperature: 36 C (96.8 F) Conductivity Meter Serial #: [id number] Machine Functioning Alarm Free? Yes Dialysis Bath: K+ (Potassium): 2 Ca+ (Calcium): 2.5 Na+ (Sodium): 137 HCO3 (Bicarb): 32 Bicarbonate Concentrate Lot No.: [id number] Acid Concentrate Lot No.: [id number] Chlorine Testing - Before each treatment and every 4 hours: Time On: 1515 Time Off: 184 Treatment Goal: 0-3 liters uf as tolerated, keeping SBP >100 Weight Height: 162.6 cm (5' 4) (01/21/24 0947) Weight: 53.1 kg (117 lb 1 oz) (01/22/248) BMI (Calculated): 20.08 (01/22/248) 1st check: less than 0.1 ppm at: 1540 2nd check: less than 0.1 ppm at: 1714 3rd check: Not Applicable (if greater than 0.1 ppm, then check every 30 minutes from secondary) Access Flows and Pressures Patient Vitals for the past 8 hrs: Blood Flow Rate (mL/min) Ultrafiltration Rate (ml/hr) Arterial Pressure (mmHg) Venous Pressure (mmHg) TMP DFR Access Visible Intra-Hemodialysis Comments 01/22/24 1550 200 mL/min 170 ml/hr -30 mmHg 20 mmHg 50 600 Yes treatment started, call light within reach, and lines secured 01/22/24 1600 350 mL/min 170 ml/hr -150 mmHg 170 mmHg 90 600 Yes blood flow rate 350, patient requested no fluid removal 01/22/24 1615 350 mL/min 170 ml/hr -140 mmHg 170 mmHg 90 600 Yes uf removal 73, patient is tolerating treatment 01/22/24 1630 350 mL/min 170 ml/hr -140 mmHg 170 mmHg 90 600 Yes uf removal 118, patient asleep in bed 01/22/24 1645 350 mL/min 170 ml/hr -150 mmHg 180 mmHg 90 600 Yes uf removal 18 01/22/24 1700 350 mL/min 170 ml/hr -150 mmHg 180 mmHg 80 600 Yes pt resting, bicarb and acid changed, uf removal 194 01/22/24 1715 350 mL/min 170 ml/hr -150 mmHg 180 mmHg 80 600 Yes pt states she feel ok , uf removal 239 01/22/24 1730 350 mL/min 170 ml/hr -150 mmHg 170 mmHg 80 600 Yes pt resting, uf removal 281 01/22/24 1745 350 mL/min 170 ml/hr -150 mmHg 170 mmHg 70 600 Yes pt is resting in bed, uf removed is 324 01/22/24 1800 350 mL/min 170 ml/hr -150 mmHg 170 mmHg 80 600 Yes pt is resting in bed, uf is 367 01/22/24 1815 350 mL/min 170 ml/hr -150 mmHg 180 mmHg 0 600 Yes pt is relaxing while watching t.v., uf is 406 01/22/24 1830 350 mL/min 170 ml/hr -150 mmHg 280 mmHg 60 600 Yes pt is relaxing, uf removed 01/22/24 1844 250 mL/min -- -- -- -- 600 -- treatment complete/ dc early due to clotting / uf removal 472 Vital Signs Patient Vitals for the past 24 hrs: BP Temp Temp src Pulse Resp SpO2 Weight 01/22/24 1858 (!) 164/76 36.4 C (97.6 F) -- 98 18 100 % -- 01/22/24 1844 (!) 178/98 -- -- 100 -- 100 % -- 01/22/24 1830 (!) 174/71 -- -- 97 -- 100 % -- 01/22/24 1815 (!) 165/73 -- -- 92 -- 100 % -- 01/22/24 1800 154/72 -- -- 91 -- 100 % -- 01/22/24 1745 (!) 162/82 -- -- 89 -- 100 % -- 01/22/24 1730 160/69 -- -- 87 -- 100 % -- 01/22/24 1715 147/70 -- -- 98 -- 100 % -- 01/22/24 1700 160/75 -- -- 85 -- 100 % -- 01/22/24 1645 145/84 -- -- 88 -- 100 % -- 01/22/24 1630 (!) 172/81 -- -- 86 -- 99 % -- 01/22/24 1615 (!) 164/69 -- -- 87 -- 100 % -- 01/22/24 1600 156/69 -- -- 86 -- 100 % -- 01/22/24 1550 148/84 -- -- 88 -- 98 % -- 01/22/24 1537 -- -- -- 85 -- 99 % -- 01/22/24 1530 148/84 36.8 C (98.2 F) -- 85 17 100 % -- 01/22/24 1528 148/84 -- -- -- -- -- -- 01/22/24 1000 133/74 -- -- 84 -- 100 % -- 01/22/24 0912 138/67 36.8 C (98.3 F) Temporal 89 25 99 % -- 01/22/24 0600 148/65 -- -- 89 16 100 % -- 01/22/24 0500 140/63 -- -- 91 19 99 % -- 01/22/24 0400 130/56 36.7 C (98 F) Temporal 85 17 98 % -- 01/22/24 0300 141/59 -- -- 89 19 98 % -- 01/22/24 0200 125/59 -- -- 92 19 99 % -- 01/22/24 0100 -- -- -- 94 18 99 % -- 01/22/24 0009 -- -- -- -- -- -- 53.1 kg (117 lb 1 oz) 01/22/24 0000 141/67 36.8 C (98.2 F) Temporal 91 15 100 % -- 01/21/24 2300 127/63 -- -- 90 (!) 11 100 % -- 01/21/24 2200 147/58 -- -- 92 19 99 % -- 01/21/24 2100 134/65 -- -- 89 12 99 % -- 01/21/24 2000 137/58 36.7 C (98 F) Temporal 89 15 100 % -- Post-Dialysis Arterial Catheter Locking Solution: NA Venous Catheter Locking Solution: Not Applicable Post-Treatment Procedures: Blood returned, Access bleeding time < 10 minutes Machine Disinfection Process: Acid/Vinegar Clean, Heat Disinfect, Exterior Machine Disinfection Rinseback Volume (mL): 300 mL Total Liters Processed (L/min): 55.9 L/min Dialyzer Clearance: Lightly streaked Hemodialysis Intake (ml): 500 ml Hemodialysis Output (ml): 472 ml NET Removed (ml): -28 ml Tolerated Treatment: Good Patient Response to Treatment: stable Physician Notified: No Patient Disposition: Remain in ICU/ED Charge: $ IP Hemodialysis Charge: Hemodialysis Provider Notification Provider Notification Reason for Communication: Evaluate (High BPs with dialysis, 10/10 pain in right leg/hip area) Provider Name: Dr. Darling Provider Role: Resident Method of Communication: Secure chat Response: At bedside Notification Time: 1630 Shift Event: Fall Reason for Communication: Evaluate (High BPs with dialysis, 10/10 pain in right leg/hip area) Provider Role: Resident Method of Communication: Secure chat Response: At bedside Notification Time: 1630 Handoff complete and report given to Primary RN at 1902 Primary RN (First Initial, Last Name, Title): Jose Andrea Rn Education Person Educated: Patient Knowledge Base: Substantial Barriers to Learning?: None Preferred method of Learning: Oral Topic(s): Procedural and fluid management Teaching Tools: Explanation Response to Education: Verbalized Understanding Patient Name: Apoorva Gonzalez Patient : 1950 Acct: [id number] Date of Admission: 01/19/2024 Room/Bed: T1-126/T1-126 A Code Status: DNR-CCA Allergies: No Known Allergies Diagnosis: Patient Active Problem List Diagnosis Hypertensive emergency Gastrointestinal hemorrhage, unspecified gastrointestinal hemorrhage type Treatment: Hemodialysis 1:1 Priority: Routine Location: ICU Diabetic: No NPO: Yes Isolation Precautions: None Consent for Treatment Verified: Yes Blood Consent Verified: Not Applicable ICEBOAT: Identify, Consent, Equipment, HepB Status, Orders Complete, Access Verified, Timeliness Second Clinician Verifying: [place] Time out performed prior to access at 1510. Report Received from Primary RN at 1500. Primary RN (First Initial, Last Name, Title): Isael Pritchard RN Incapacitated Nurse Education Completed: Quinn Julien RN HBsAg ONLY: Date Drawn: March 25, 2023 Results: Negative HBsAb: Date Drawn: March 25, 2023 Results: Immune >10 Order Dialyzer: Nipro Na+ Modeling: Not Applicable Dialysate Temperature (C): 36 Blood Flow Rate (BFR): 350 Dialysate Flow Rate (DFR): 600 Access to be Utilized Access: AVF Location: Upper Extremity Side: Left Needle gauge: 16 + Bruit/Thrill: Yes First Use X-ray Verified: Not Applicable OK to use line order: Not Applicable Site Assessment: Signs and Symptoms of Infection/Inflammation: None If yes: Not Applicable Dressing: N/A Site Prep: Medical Aseptic Technique Dressing Changed this Treatment: N/A If yes, by whom: N/A Date of Last Dressing Change: N/A N/A [address]?: N/A Red Alcohol Caps in place?: N/A Gauze Dressing?: N/A Non-Dialysis Use?: No Comment: Flows: Good If access problem, who was notified: Pre and Post-Assessment Patient Vitals for the past 8 hrs: Level of Consciousness Oriented X Heart Rhythm O2 Device Bilateral Breath Sounds Skin Color Skin Condition/Temp Abdomen Inspection Bowel Sounds (All Quadrants) RUE Edema LUE Edema RLE Edema LLE Edema 01/20/24 1100 -- -- -- -- Diminished -- -- Soft;Nondistended Active None None None None 01/20/24 1500 -- -- -- -- Diminished -- -- Soft;Nondistended Active None None None None 01/20/24 1506 Alert (0) 3 Regular None (Room air) Clear [place] Warm;Dry;No swelling Soft Active -- -- -- -- Labs Lab Results Component Value Date/Time WBC 20.1 (H) 01/20/2024347 HGB 7.3 (L) 01/20/2024 150 HCT 21.3 (L) 01/20/2024 1509 PLT 285 01/20/2024347 NA 132 (L) 01/20/2024347 K 5.3 (H) 01/20/2024347 CL 97 (L) 01/20/2024347 CO2 27 01/20/2024347 BUN 50 (H) 01/20/2024347 CREATININE 8.34 (H) 01/20/2024347 CALCIUM 7.2 (L) 01/20/2024347 PHOS 6.4 (H) 01/20/2024347 IV Drips and Rate/Dose Safety - Before each treatment: Dialysis Machine No.: [id number] Machine Number: [id number] Dialyzer Lot No.: [id number] Tubing Lot Number: [id number] All [employer]ctions Secure: Yes Venous Parameters Set: Yes Arterial Parameters Set: Yes NS Bag: Yes Saline Line Double Clamped: Yes Dialyzer: Nipro Prime Volume (mL): 200 mL RO Machine Number: [id number] RO Machine Log Sheet Completed: Yes Machine Alarm Self Test: Completed, Passed (6975) (01/20/24 1445) Air Foam Detector: pH Reading, Proper Function, Tested Extracorporeal Circuit Tested for Integrity: Yes Machine Conductivity: 13.8 Manual Conductivity: 13.7 Machine Ph: 7 Manual Ph: 7 Bleach Test (Neg): Yes Bath Temperature: 36 C (96.8 F) Conductivity Meter Serial #: [id number] Machine Functioning Alarm Free? Yes Dialysis Bath: K+ (Potassium): 2 Ca+ (Calcium): 2.5 Na+ (Sodium): 137 HCO3 (Bicarb): 32 Chlorine Testing - Before each treatment and every 4 hours: Time On: 1515 Time Off: 181 Treatment Goal: 3L Weight Height: 162.6 cm (5' 4) (01/19/24 1659) Weight: 51.7 kg (113 lb 15.7 oz) (01/20/24 07) BMI (Calculated): 19.55 (01/20/24 07) 1st check: less than 0.1 ppm at: 1445 2nd check: less than 0.1 ppm at: 1745 3rd check: Not Applicable (if greater than 0.1 ppm, then check every 30 minutes from secondary) Access Flows and Pressures Patient Vitals for the past 8 hrs: Blood Flow Rate (mL/min) Ultrafiltration Rate (ml/hr) Arterial Pressure (mmHg) Venous Pressure (mmHg) TMP DFR Access Visible Intra-Hemodialysis Comments 01/20/24 1515 200 mL/min 1170 ml/hr -30 mmHg 70 mmHg 80 600 Yes tx int call with pt 01/20/24 1520 350 mL/min 1170 ml/hr -160 mmHg 160 mmHg 80 600 Yes bfr increased 01/20/24 1530 350 mL/min 1170 ml/hr -190 mmHg 190 mmHg 70 600 Yes pt alert stable uf rmv 296 01/20/24 1545 350 mL/min 1170 ml/hr -190 mmHg 230 mmHg 70 600 Yes pt alert talking with staff uf rmv 626 01/20/24 1600 350 mL/min 750 ml/hr -170 mmHg 190 mmHg 70 600 Yes pt talking with boyfriend uf rmv 802 01/20/24 1615 350 mL/min 0 ml/hr -210 mmHg 190 mmHg 70 600 Yes pt bp dropped 85/59 uf turned off 01/20/24 1630 350 mL/min 0 ml/hr -210 mmHg 190 mmHg 60 600 Yes pt bp still soft uf remains off 01/20/24 1645 350 mL/min 0 ml/hr -220 mmHg 200 mmHg 60 600 Yes pt resting bp came up uf still off 01/20/24 1700 350 mL/min 0 ml/hr -210 mmHg 190 mmHg 60 600 Yes pt feeling much better talking with staff 01/20/24 1715 350 mL/min 0 ml/hr -210 mmHg 190 mmHg 60 600 Yes pt stable needles intact 01/20/24 1730 350 mL/min 0 ml/hr -160 mmHg 200 mmHg 60 600 Yes pt alert stable 01/20/24 1745 350 mL/min 0 ml/hr -160 mmHg 200 mmHg 50 600 Yes pt resting stable 01/20/24 1800 350 mL/min 0 ml/hr -160 mmHg 200 mmHg 50 600 Yes pt resting sleeping 01/20/24 181 -- -- -- -- -- -- -- tx complete Vital Signs Patient Vitals for the past 24 hrs: BP Temp Temp src Pulse Resp SpO2 Weight 01/20/24 1829 130/81 36.9 C (98.5 F) -- 108 -- -- -- 01/20/24 1815 148/62 -- -- 108 -- -- -- 01/20/24 1800 132/64 -- -- 109 14 100 % -- 01/20/24 174 116/65 -- -- 110 -- -- -- 01/20/24 1730 120/66 -- -- 114 -- -- -- 01/20/24 1715 133/75 -- -- 106 -- -- -- 01/20/24 1700 (!) 118/105 -- -- 109 18 100 % -- 01/20/24 1645 132/68 -- -- 105 -- -- -- 01/20/24 1630 91/62 -- -- 104 (!) 11 100 % -- 01/20/24 1615 (!) 85/59 -- -- 106 15 95 % -- 01/20/24 1600 146/78 -- -- 107 25 97 % -- 01/20/24 1545 111/67 -- -- -- -- -- -- 01/20/24 1530 120/62 -- -- 97 -- -- -- 01/20/24 1520 134/80 -- -- -- -- -- -- 01/20/24 1500 119/84 37.1 C (98.7 F) Temporal 94 16 99 % -- 01/20/24 1400 142/78 -- -- 97 18 97 % -- 01/20/24 1300 126/72 -- -- 100 21 98 % -- 01/20/24 1200 133/62 -- -- 98 16 99 % -- 01/20/24 1100 135/74 37.1 C (98.8 F) Temporal 102 19 98 % -- 01/20/24 1000 135/68 -- -- 105 (!) 9 98 % -- 01/20/24 0900 129/77 -- -- 104 23 100 % -- 01/20/24 0800 148/66 -- -- 102 18 100 % -- 01/20/24 0700 128/83 37.3 C (99.2 F) Temporal 102 15 98 % 51.7 kg (113 lb 15.7 oz) 01/20/24 0600 145/69 -- -- 101 (!) 6 95 % -- 01/20/24 0500 142/64 -- -- 102 17 99 % -- 01/20/24 0400 126/76 37.1 C (98.7 F) Temporal 98 12 97 % -- 01/20/24 0300 148/77 -- -- 98 12 100 % -- 01/20/24 0200 145/63 -- -- 96 12 100 % -- 01/20/24 0100 114/64 -- -- 97 (!) 10 100 % -- 01/20/24 0000 126/72 36.9 C (98.5 F) Temporal 97 15 100 % -- 01/19/242318 -- -- -- 93 13 100 % -- 01/19/242314 139/71 -- -- 95 18 100 % -- 01/19/242313 -- -- -- 94 22 100 % -- 01/19/24 2310 139/73 -- -- 95 17 100 % -- 01/19/242304 (!) 147/82 -- -- 95 (!) 11 100 % -- 01/19/242299 (!) 149/71 -- -- 99 18 100 % -- 01/19/242254 137/81 -- -- 93 18 100 % -- 01/19/242249 (!) 142/78 -- -- 95 18 100 % -- 01/19/242244 (!) 151/78 -- -- 98 25 100 % -- 01/19/242239 -- -- -- 97 13 100 % -- 01/19/242234 (!) 148/78 -- -- 95 (!) 9 100 % -- 01/19/242229 -- -- -- 97 15 100 % -- 01/19/242228 (!) 149/76 -- -- 96 13 100 % -- 01/19/242224 (!) 154/81 -- -- 98 17 100 % -- 01/19/242219 (!) 155/80 -- -- 97 12 100 % -- 01/19/242219 (!) 153/80 -- -- 98 19 100 % -- 01/19/242209 (!) 146/87 -- -- 99 22 100 % -- 01/19/242148 122/63 37.2 C (98.9 F) -- 96 12 -- -- 01/19/241951 125/71 37.1 C (98.8 F) -- 101 12 -- -- 01/19/241937 (!) 142/53 37.2 C (99 F) -- 100 13 -- -- Post-Dialysis Arterial Catheter Locking Solution: Not Applicable Venous Catheter Locking Solution: Not Applicable Post-Treatment Procedures: Blood returned, Access bleeding time < 10 minutes Machine Disinfection Process: Exterior Machine Disinfection Rinseback Volume (mL): 300 mL Total Liters Processed (L/min): 57.2 L/min Dialyzer Clearance: Lightly streaked Hemodialysis Intake (ml): 954 ml Hemodialysis Output (ml): 500 ml NET Removed (ml): -454 ml Tolerated Treatment: Fair Charge: $ IP Hemodialysis Charge: Hemodialysis Provider Notification Provider Notification Reason for Communication: Abnormal vitals (Patient's BP dropped to 66/40 (47), medical authorization specialist immediately stopped pulling fluid. BP started coming back up. Patient also became nauseated, dizzy, and having abdominal cramping. Dr. Richardson to see patient.) Provider Name: Dr. Richardson Provider Role: Resident Method of Communication: Call Response: En route Notification Time: 1635 Shift Event: Fall Reason for Communication: Abnormal vitals (Patient's BP dropped to 66/40 (47), medical authorization specialist immediately stopped pulling fluid. BP started coming back up. Patient also became nauseated, dizzy, and having abdominal cramping. Dr. Dylan to see patient.) Provider Role: Resident Method of Communication: Call Response: En route Notification Time: 1635 Handoff complete and report given to Primary RN at 1830. Primary RN (First Initial, Last Name, Title): Isael Pritchard RN Education Person Educated: Patient Knowledge Base: Substantial Barriers to Learning?: None Preferred method of Learning: Oral Topic(s): Call Light Education, Access Care, Signs and Symptoms of Infection, and Fluid Management Teaching Tools: Explanation Response to Education: Verbalized Understanding Patient tolerated the procedure well. Transfer to T126 following the procedure. Patient arrived from the emergency department for mesenteric angiogram with possible intervention. Dr. Whatleyu in to speak with the patient regarding the procedure, and consent was obtained. Patient's lab values and allergies were reviewed. Patient was placed supine on exam table, prepped and draped in sterile fashion. Telemetry monitors were placed. documented in this encounter [facility] 01-25-2024 Plan of care note Problem: Problem Interventions Goal: Assess Nutritional Intake Outcome: Progressing Problem: Pain - Adult Goal: Verbalizes/displays adequate comfort level or baseline comfort level Outcome: Progressing Problem: Discharge Planning Goal: Discharge to home or other facility with appropriate resources Outcome: Progressing [facility] 01-25-2024 Note Formatting of this n ote might be different from the original. POST ENDOSCOPY PROCEDURE TRANSFER REPORT Physician: Procedure completed: colonoscopy Specimens obtained: n/a Medications administered: see anesthesia note Findings: see physician's note Complications: n/a Please call the Main Endoscopy Dept at [phone] for questions. Report called to CYNTHIA Og on 6W. [facility] 01-25-2024 Note Formatting of this n ote might be different from the original. POST ENDOSCOPY PROCEDURE TRANSFER REPORT Physician: Procedure completed: colonoscopy Specimens obtained: n/a Medications administered: see anesthesia note Findings: see physician's note Complications: n/a Please call the Main Endoscopy Dept at [phone] for questions. Report called to CYNTHIA Og on [facility]. [facility] 01-25-2024 Note Formatting of this n ote might be different from the original. [facility] Ap[facility]va [facility] Procedure Date: 01/25/2024 8:33 AM Gender: Female Date of : 1950 Age: 73 Admit Type: Inpatient Note Status: Finalized Endoscopist: Chrissy Gilman MD, [id number] Procedure: Colonoscopy Indications: Rectal bleeding, Acute post hemorrhagic anemia, Iron deficiency anemia secondary to chronic blood loss Findings: Hemorrhoids and skin tags were found on perianal exam. Multiple medium-mouthed and small-mouthed diverticula were found in the sigmoid colon, descending colon, transverse colon and ascending colon. There was evidence of diverticular spasm. There was no evidence of diverticular bleeding. Non-bleeding external hemorrhoids were found during perianal exam. The hemorrhoids were small. The exam was otherwise without abnormality. Impression: - Hemorrhoids found on perianal exam. - Moderate diverticulosis in the sigmoid colon, in the descending colon, in the transverse colon and in the ascending colon. There was evidence of diverticular spasm. There was no evidence of diverticular bleeding. - Non-bleeding external hemorrhoids. - The examination was otherwise normal. - No specimens collected. Recommendation: - [facility]. - Resume previous diet. Avoid seeds, constipation and NSAID if possible . Ok for soft diet today . - Continue present medications. - Repeat colonoscopy is not recommended due to current age (66 years or older) for screening. - Return to GI office PRN. - The findings and recommendations were discussed with the patient. - The findings and recommendations were discussed with the referring physician. Referring MD: Christiano Grove DO Medicines: Monitored Anesthesia Care Procedure: Pre-Anesthesia Assessment: - Prior to the procedure, a History and Physical was performed, and patient medications and allergies were reviewed. The patient's tolerance of previous anesthesia was also reviewed. The risks and benefits of the procedure and the sedation options and risks were discussed with the patient. All questions were answered, and informed consent was obtained. Prior Anticoagulants: The patient has taken no anticoagulant or antiplatelet agents. ASA Grade Assessment: III - A patient with severe systemic disease. After reviewing the risks and benefits, the patient was deemed in satisfactory condition to undergo the procedure. After I obtained informed consent, the scope was passed under direct vision. Throughout the procedure, the patient's blood pressure, pulse, and oxygen saturations were monitored continuously. The Colonoscope was introduced through the anus and advanced to the cecum, identified by appendiceal orifice and ileocecal valve. The colonoscopy was technically difficult and complex due to a redundant colon and significant looping. Successful completion of the procedure was aided by applying abdominal pressure. The patient tolerated the procedure well. The quality of the bowel preparation was adequate. Anatomical landmarks were photographed. Complications: No immediate complications. Procedure Code(s): --- Professional --- 73703, Colonoscopy, flexible; diagnostic, including collection of specimen(s) by brushing or washing, when performed (separate procedure) --- Technical --- 04785, Colonoscopy, flexible; diagnostic, including collection of specimen(s) by brushing or washing, when performed (separate procedure) Diagnosis Code(s): --- Professional --- K64.4, Residual hemorrhoidal skin tags K62.5, Hemorrhage of anus and rectum D62, Acute posthemorrhagic anemia D50.0, Iron deficiency anemia secondary to blood loss (chronic) K57.30, Diverticulosis of large intestine without perforation or abscess without bleeding --- Technical --- K64.4, Residual hemorrhoidal skin tags K62.5, Hemorrhage of anus and rectum D62, Acute posthemorrhagic anemia D50.0, Iron deficiency anemia secondary to blood loss (chronic) K57.30, Diverticulosis of large intestine without perforation or abscess without bleeding CPT copyright 2021 [employer]. All rights reserved. The codes documented in this report are preliminary and upon molder setter review may be revised to meet current compliance requirements. Chrissy Gilman MD 01/25/2024 10:02:22 AM This report has been signed electronically. Number of Addenda: 0 Note Initiated On: 01/25/2024 8:33 AM [facility] Work Phone: 01-25-2024 Note Formatting of this n ote might be different from the original. [facility] Ap[facility] Procedure Date: 01/25/2024 8:33 AM Gender: Female Date of : 1950 Age: 73 Admit Type: Inpatient Note Status: Finalized Endoscopist: Chrissy Gilman MD, [id number] Procedure: Colonoscopy Indications: Rectal bleeding, Acute post hemorrhagic anemia, Iron deficiency anemia secondary to chronic blood loss Findings: Hemorrhoids and skin tags were found on perianal exam. Multiple medium-mouthed and small-mouthed diverticula were found in the sigmoid colon, descending colon, transverse colon and ascending colon. There was evidence of diverticular spasm. There was no evidence of diverticular bleeding. Non-bleeding external hemorrhoids were found during perianal exam. The hemorrhoids were small. The exam was otherwise without abnormality. Impression: - Hemorrhoids found on perianal exam. - Moderate diverticulosis in the sigmoid colon, in the descending colon, in the transverse colon and in the ascending colon. There was evidence of diverticular spasm. There was no evidence of diverticular bleeding. - Non-bleeding external hemorrhoids. - The examination was otherwise normal. - No specimens collected. Recommendation: - [facility]. - Resume previous diet. Avoid seeds, constipation and NSAID if possible . Ok for soft diet today . - Continue present medications. - Repeat colonoscopy is not recommended due to current age (66 years or older) for screening. - Return to GI office PRN. - The findings and recommendations were discussed with the patient. - The findings and recommendations were discussed with the referring physician. Referring MD: Christiano Grove DO Medicines: Monitored Anesthesia Care Procedure: Pre-Anesthesia Assessment: - Prior to the procedure, a History and Physical was performed, and patient medications and allergies were reviewed. The patient's tolerance of previous anesthesia was also reviewed. The risks and benefits of the procedure and the sedation options and risks were discussed with the patient. All questions were answered, and informed consent was obtained. Prior Anticoagulants: The patient has taken no anticoagulant or antiplatelet agents. ASA Grade Assessment: III - A patient with severe systemic disease. After reviewing the risks and benefits, the patient was deemed in satisfactory condition to undergo the procedure. After I obtained informed consent, the scope was passed under direct vision. Throughout the procedure, the patient's blood pressure, pulse, and oxygen saturations were monitored continuously. The Colonoscope was introduced through the anus and advanced to the cecum, identified by appendiceal orifice and ileocecal valve. The colonoscopy was technically difficult and complex due to a redundant colon and significant looping. Successful completion of the procedure was aided by applying abdominal pressure. The patient tolerated the procedure well. The quality of the bowel preparation was adequate. Anatomical landmarks were photographed. Complications: No immediate complications. Procedure Code(s): --- Professional --- 98314, Colonoscopy, flexible; diagnostic, including collection of specimen(s) by brushing or washing, when performed (separate procedure) --- Technical --- 54073, Colonoscopy, flexible; diagnostic, including collection of specimen(s) by brushing or washing, when performed (separate procedure) Diagnosis Code(s): --- Professional --- K64.4, Residual hemorrhoidal skin tags K62.5, Hemorrhage of anus and rectum D62, Acute posthemorrhagic anemia D50.0, Iron deficiency anemia secondary to blood loss (chronic) K57.30, Diverticulosis of large intestine without perforation or abscess without bleeding --- Technical --- K64.4, Residual hemorrhoidal skin tags K62.5, Hemorrhage of anus and rectum D62, Acute posthemorrhagic anemia D50.0, Iron deficiency anemia secondary to blood loss (chronic) K57.30, Diverticulosis of large intestine without perforation or abscess without bleeding CPT copyright 2021 [employer]. All rights reserved. The codes documented in this report are preliminary and upon molder setter review may be revised to meet current compliance requirements. Chrissy Gilman MD 01/25/2024 10:02:22 AM This report has been signed electronically. Number of Addenda: 0 Note Initiated On: 01/25/2024 8:33 AM T [facility] Work Phone: 01-25-2024 Plan of care note Problem: Knowledge Deficit Goal: Patient/family/caregiver demonstrates understanding of disease process, treatment plan, medications, and discharge instructions Outcome: Progressing Problem: Potential for Compromised Skin Integrity Goal: Skin Integrity is Maintained or Improved Outcome: Progressing Goal: Nutritional status is improving Outcome: Progressing Problem: Pain - Adult Goal: Verbalizes/displays adequate comfort level or baseline comfort level Outcome: Progressing Problem: Safety - Adult Goal: Free from fall injury Outcome: Progressing [facility] 01-24-2024 Note Formatting of this n ote might be different from the original. Spoke with Dr Collier-patients admitting team-ordered patient to have 10mg hydralazine q6 for SBP>160 [facility] 01-24-2024 Note Formatting of this n ote might be different from the original. Spoke with Dr Collier-patients admitting team-ordered patient to have 10mg hydralazine q6 for SBP>160 T [facility] 01-24-2024 Note Formatting of this n ote might be different from the original. Dr Glynn paged regarding post procedure BP's. [facility] 01-24-2024 Note Formatting of this n ote might be different from the original. Dr Glynn pagebela regarding post procedure BP's. [facility] 10-21-2024 Nurse Note Patient arrived from room [facility], Dr. Suárez in to speak with the patient regarding mesenteric embo, consent obtained. Patient was placed supine on exam table prepped and draped in sterile fashion. Telemetry monitors placed, conscious sedation administered. Patient tolerated procedure well. Transfer back to room. [facility] 01-24-2024 Note Formatting of this n ote might be different from the original. Department of Internal Medicine Gastroenterology Notified this morning at 0817 by bedside RN that patient only drank 2 glasses of prep and was passing bright red blood. Hgb dropped from 8.0 to 6.4, now 7.7 after 1 unit PRBC, patient has remained hemodynamically stable. Ordered TRBC and plan for IR if bleeding localized. Tentative plan for colonoscopy tomorrow if IR intervention not indicated. Primary team and bedside RN notified. PARK Baker CNP 01/24/2024 1:51 PM [employer] Work Phone: 01-24-2024 Note Formatting of this n ote might be different from the original. Department of Internal Medicine Gastroenterology Notified this morning at 0817 by bedside RN that patient only drank 2 glasses of prep and was passing bright red blood. Hgb dropped from 8.0 to 6.4, now 7.7 after 1 unit PRBC, patient has remained hemodynamically stable. Ordered TRBC and plan for IR if bleeding localized. Tentative plan for colonoscopy tomorrow if IR intervention not indicated. Primary team and bedside RN notified. PARK Baker CNP 01/24/2024 1:51 PM [facility] [employer] Phone: 01-24-2024 Plan of care note Problem: Pain - Adult Goal: Verbalizes/displays adequate comfort level or baseline comfort level Outcome: Progressing Problem: Safety - Adult Goal: Free from fall injury Outcome: Progressing Problem: Chronic Conditions and Co-morbidities Goal: Patient's chronic conditions and co-morbidity symptoms are monitored and maintained or improved Outcome: Progressing T [facility] 01-24-2024 Note Formatting of this n ote might be different from the original. Chart reviewed. Patient transferred from ICU to med/surg floor 01/22. +increased bloody bowel movements over night with Hgb 6.4 this AM. Patient received 1U PRBC. Nuclear med bleeding scan today. Current discharge plan is home once medically stable. TCC to continue to follow. T [facility] 01-24-2024 Note Formatting of this n ote might be different from the original. Chart reviewed. Patient transferred from ICU to med/surg floor 01/22. +increased bloody bowel movements over night with Hgb 6.4 this AM. Patient received 1U PRBC. Nuclear med bleeding scan today. Current discharge plan is home once medically stable. TCC to continue to follow. T [facility] 01-24-2024 Nurse Note Wound Care consulted for Pressure Injury Prevention. Pt's Arnol= 22, pt is no longer at risk. Skin Care Precaution order set in place. Dietitian consult in place. Will continue to follow peripherally. Please voicera or secure chat message with any questions. Radha Lopes RN, [facility] 01-23-2024 Plan of care note Problem: Knowledge Deficit Goal: Patient/family/caregiver demonstrates understanding of disease process, treatment plan, medications, and discharge instructions Outcome: Progressing Problem: Potential for Compromised Skin Integrity Goal: Skin Integrity is Maintained or Improved Outcome: Progressing Goal: Nutritional status is improving Outcome: Progressing Problem: Urinary Incontinence Goal: Perineal skin integrity is maintained or improved Outcome: Progressing Problem: Problem Interventions Goal: Assess Nutritional Intake Outcome: Progressing [facility] 01-23-2024 Plan of care note Problem: Potential for Compromised Skin Integrity Goal: Skin Integrity is Maintained or Improved Outcome: Progressing Problem: Potential for Compromised Skin Integrity Goal: Nutritional status is improving Outcome: Progressing Problem: Urinary Incontinence Goal: Perineal skin integrity is maintained or improved Outcome: Progressing T [facility] 01-23-2024 Consult note Associated Order (s): IP CONSULT TO GI Department of Internal Medicine Gastroenterology Attending Consult Note Reason for Consult: The patient was seen in consultation at the request of Mounika Connell DO re: Consult being placed only for assistance with setting up OP GI follow up for colonoscopy. She does not having any inpatient GI needs. Thank you! CHIEF COMPLAINT: blood in stool History Obtained From: patient, EMR HISTORY OF PRESENT ILLNESS: The patient is a 73 y.o. female with significant past medical history of CKD on hemodialysis T//, HTN, seizure who presents with blood in stool. Presented with blood in stool 01/19/2024 with over 10 episodes of bright red and dark clots. In ED, HR in the low 100s, blood pressures stable with systolics 120-140, labs notable for hemoglobin of 7.7 on her CBC, and CTA abdomen pelvis angiogram showed descending colon active bleeding. IR was consulted in the ED and the patient was planned for immediate intervention by interventional radiology CT angio positive for descending colon bleed and IR agreed to take pt for intervention. IR planned intervention and put arterial sheath in but no intervention was required as bleeding spontaneously resolved. Received 2u pRBC day of admit. Required 1u pRBC transfusion overnight into the 18. Arterial sheath removed 01/20. No repeat hematochezia. This has not happened before. Has LLQ pain at the time of episodes but this has since resolved. Last BM was this morning and formed without hematochezia. No black tarry stools. No change in BM, no constipation or diarrhea. Feels like she has been rodney stable. No upper abdominal pain, no nausea, no vomiting, no dysphagia, no odynophagia. No illicit drugs. Drinks some EtOH on the weekends. No tobacco use. No family history of CRC. No anticoagulants. Never has had an EGD, colonoscopy, or abdominal surgery. Allergies: Patient has no known allergies. Current Medications: Current Facility-Administered Medications: acetaminophen (Tylenol) tablet 650 mg, 650 mg, Oral, q6h PRN, 650 mg at 01/22/24 1834 OR acetaminophen (Tylenol) suppository 650 mg, 650 mg, Rectal, q6h PRN, Jessica Murphy DO amLODIPine (Norvasc) tablet 5 mg, 5 mg, Oral, Daily, Mounika Connell DO, 5 mg at 01/23/24 0810 Diclofenac Sodium (Voltaren) 1 % gel 2 g, 2 g, Topical, BID PRN, Mounika Connell DO ondansetron ODT (Zofran-ODT) disintegrating tablet 4 mg, 4 mg, Oral, q8h PRN OR ondansetron (Zofran) injection 4 mg, 4 mg, IntraVENous, q6h PRN, Jessica Murphy DO, 4 mg at 01/20/24 1613 pantoprazole (ProtoNix) EC tablet 40 mg, 40 mg, Oral, BID AC, 40 mg at 01/23/24 0504 OR [DISCONTINUED] pantoprazole (ProtoNix) 40 mg in sodium chloride (PF) 0.9 % 10 mL injection, 40 mg, IntraVENous, BID AC, Dora Diego, polyethylene glycol (PEG) 3350 (Miralax) packet 17 g, 17 g, Oral, Daily, Mounika Connell DO, 17 g at 01/23/24 0811 senna-docusate sodium (Senokot-S) 8.6-50 MG tablet 2 tablet, 2 tablet, Oral, Daily PRN, Mounika Connell DO, 2 tablet at 01/23/24 0810 sodium chloride 0.9 % infusion, 250 mL/hr, IntraVENous, PRN, Jessica Murphy, sodium chloride 0.9 % infusion, 250 mL/hr, IntraVENous, PRN, Flaco Rivera, DO Past Medical History: Active Ambulatory Problems Diagnosis Date Noted Hypertensive emergency 02/21/2022 Resolved Ambulatory Problems Diagnosis Date Noted No Resolved Ambulatory Problems Past Medical History: Diagnosis Date Chronic kidney disease (CKD) Hemodialysis patient (CMS/HCC) (HCC) History of blood transfusion 02/27/2022 Hypertension Seizure ([facility]) Past Surgical History: Social History Socioeconomic History Marital status: Spouse name: Not on file Number of children: Not on file Years of education: Not on file Highest education level: Not on file Occupational History Not on file Tobacco Use Smoking status: Never Smokeless tobacco: Never Vaping Use Vaping status: Never Used Substance and Sexual Activity Alcohol use: Yes Alcohol/week: 2.0 standard drinks of alcohol Types: 2 Glasses of wine per week Comment: weekly Drug use: Never Sexual activity: Not on file Other Topics Concern Not on file Social History Narrative Not on file Social Determinants of Health Financial Resource Strain: Not on file Food Insecurity: Not on file Transportation Needs: No Transportation Needs (02/22/2022) PRAPARE - Transportation Lack of Transportation (Medical): No Lack of Transportation (Non-Medical): No Physical Activity: Not on file Stress: Not on file Social Connections: Not on file Intimate Partner Violence: Not At Risk (08/07/2022) Humiliation, Afraid, Rape, and Kick questionnaire Fear of Current or Ex-Partner: No Emotionally Abused: No Physically Abused: No Sexually Abused: No Housing Stability: Not on file Family History: Family History Problem Relation Name Age of Onset Dementia Mother Stroke Father Breast cancer Cousin No family history colon or stomach cancer. Social History: TOBACCO: reports that she has never smoked. She has never used smokeless tobacco. ETOH: reports current alcohol use of about 2.0 standard drinks of alcohol per week. DRUGS: reports no history of drug use. REVIEW OF SYSTEMS: No fever, chills, or sweats. Normal appetite and weight. No GALVIN, visual disturbance, eye pain, jaundice, sore throat or mouth ulcers. No skin rash or itching. No CP, SOB, BRAY, cough or wheeze. No urinary frequency, urgency, hematuria, or dysuria. No myalgia, arthralgia, or joint swelling. No weakness, numbness, or confusion. GI per HPI. No polyuria, polydipsia, heat or cold intolerance. PHYSICAL EXAM: VS: BP 153/70 (BP Location: Right arm, Patient Position: Lying) Pulse 89 Temp 36.9 C (98.4 F) (Temporal) Resp 20 Ht 5' 4 (1.626 m) Wt 117 lb 1 oz (53.1 kg) SpO2 99% BMI 20.09 kg/m Body mass index is 20.09 kg/m . Constitutional: No acute distress. Well-nourished. Well hydrated. Laying comfortably in bed. Head/Eyes: Pupils are equal and round; Conjunctiva are not injected; Sclera are non-icteric. ENT: Ears/nose without external abnormalities. Oral mucosa is pink and moist. Neck: No JVD. No carotid bruits; No thyromegaly. Respiratory: Clear to auscultation bilaterally without any added sounds. Effort is normal Heart: Regular, Normal S1 and S2. No murmur; No added sounds. Abdomen: Normal BS, soft, non-tender, non-distended; no hepatomegaly. Extremities/Skin: No LE edema; Skin warm to touch and well perfused. Musculoskeletal: Head - normocephalic. Neck - supple Psychiatric: AAO x 3, answers appropriately, normal mood, normal affect. Non-focal. DATA: Recent blood work and relevant radiologic and endoscopic studies were reviewed and discussed with the patient. CBC: Recent Labs 01/21/24 0036 01/21/24 0058 01/21/24 0618 01/22/24 0010 01/23/24 0504 WBC 22.8* -- -- 17.7* 13.8* RBC 2.32* -- -- 2.71* 2.70* HGB 7.0* < > 8.2* 8.0* 8.0* HCT 21.0* < > 24.9* 24.3* 24.7* MCV 90.5 -- -- 89.7 91.5 MCH 30.2 -- -- 29.5 29.6 MCHC 33.3 -- -- 32.9 32.4 RDW 16.4* -- -- 16.8* 16.0* PLT 268 -- -- 292 325 MPV 10.5 -- -- 10.4 10.0 < > = values in this interval not displayed. CMP: Recent Labs 01/21/24 0036 01/22/24 0010 01/23/24 0504 NA 135 133* 136 K 4.5 4.8 4.4 CL 100 102 101 CO2 26 21* 30 BUN 26* 49* 26* CREATININE 4.74* 7.66* 4.86* GLUCOSE 85 78 107* CALCIUM 7.4* 6.7* 7.6* PT/INR: No results for input(s): INR in the last 72 hours. Radiologic Review CTA abdomen pelvis 01/19/2024 ndication: GI bleeding. FINDINGS: Unenhanced abdomen and enhanced abdomen with 75 mL Isovue 370 performed. Dose reduction and automated exposure control utilized. Lung bases are grossly clear. No free air seen. Increased stool within bowel suspicious for constipation. Mild infiltration adjacent to sigmoid colon. Diverticula noted. No convincing pneumatosis or abscess or obstruction. Appendix not confidently seen. Atrophic kidneys. No convincing active disease of the liver, gallbladder pancreas or spleen. Atherosclerotic calcifications of the aorta noted. No convincing dissection or acute stenosis. There is extravasation into the ascending colon. IMPRESSION: Descending colon active bleeding. An element of diverticulitis possible. DTR Dr Kaur Endoscopic Review None on Epic or Care Everywhere IMPRESSION/RECOMMENDATIONS: Acute normocytic anemia- Hgb on presentation 7.7 (01/18) ,s/p 3 units PRBC, now stable at 8.0. Vitally stable. Hematochezia- resolved without IR intervention, likely from descending colon. Abnormal CTA- Descending colon active bleeding. An element of diverticulitis possible. -Plan for colonoscopy 01/24/[address] Gilman. -CLD diet today with bowel prep. -Agree with transfer to floor. -Continue care per primary team. -Plan shared with primary. -GI will follow. Cosigned by Analilia Jo MD at 01/24/2024 11:46 AM EDT [facility] 01-23-2024 Consult note Associated Order (s): IP CONSULT TO GI Department of Internal Medicine Gastroenterology Attending Consult Note Reason for Consult: The patient was seen in consultation at the request of Mounika Connell DO re: Consult being placed only for assistance with setting up OP GI follow up for colonoscopy. She does not having any inpatient GI needs. Thank you! CHIEF COMPLAINT: blood in stool History Obtained From: patient, EMR HISTORY OF PRESENT ILLNESS: The patient is a 73 y.o. female with significant past medical history of CKD on hemodialysis T//, HTN, seizure who presents with blood in stool. Presented with blood in stool 01/19/2024 with over 10 episodes of bright red and dark clots. In ED, HR in the low 100s, blood pressures stable with systolics 120-140, labs notable for hemoglobin of 7.7 on her CBC, and CTA abdomen pelvis angiogram showed descending colon active bleeding. IR was consulted in the ED and the patient was planned for immediate intervention by interventional radiology CT angio positive for descending colon bleed and IR agreed to take pt for intervention. IR planned intervention and put arterial sheath in but no intervention was required as bleeding spontaneously resolved. Received 2u pRBC day of admit. Required 1u pRBC transfusion overnight into the . Arterial sheath removed 01/20. No repeat hematochezia. This has not happened before. Has LLQ pain at the time of episodes but this has since resolved. Last BM was this morning and formed without hematochezia. No black tarry stools. No change in BM, no constipation or diarrhea. Feels like she has been rodney stable. No upper abdominal pain, no nausea, no vomiting, no dysphagia, no odynophagia. No illicit drugs. Drinks some EtOH on the weekends. No tobacco use. No family history of CRC. No anticoagulants. Never has had an EGD, colonoscopy, or abdominal surgery. Allergies: Patient has no known allergies. Current Medications: Current Facility-Administered Medications: acetaminophen (Tylenol) tablet 650 mg, 650 mg, Oral, q6h PRN, 650 mg at 01/22/24 1834 OR acetaminophen (Tylenol) suppository 650 mg, 650 mg, Rectal, q6h PRN, Jessica Murphy DO amLODIPine (Norvasc) tablet 5 mg, 5 mg, Oral, Daily, Mounika Connell DO, 5 mg at 01/23/24 0810 Diclofenac Sodium (Voltaren) 1 % gel 2 g, 2 g, Topical, BID PRN, Mounika Connell DO ondansetron ODT (Zofran-ODT) disintegrating tablet 4 mg, 4 mg, Oral, q8h PRN OR ondansetron (Zofran) injection 4 mg, 4 mg, IntraVENous, q6h PRN, Jessica Murphy DO, 4 mg at 01/20/24 1613 pantoprazole (ProtoNix) EC tablet 40 mg, 40 mg, Oral, BID AC, 40 mg at 01/23/24 0504 OR [DISCONTINUED] pantoprazole (ProtoNix) 40 mg in sodium chloride (PF) 0.9 % 10 mL injection, 40 mg, IntraVENous, BID AC, Dora Diego, polyethylene glycol (PEG) 3350 (Miralax) packet 17 g, 17 g, Oral, Daily, Mounika Connell DO, 17 g at 01/23/24 0811 senna-docusate sodium (Senokot-S) 8.6-50 MG tablet 2 tablet, 2 tablet, Oral, Daily PRN, Mounika Connell DO, 2 tablet at 01/23/24 0810 sodium chloride 0.9 % infusion, 250 mL/hr, IntraVENous, PRN, Jessica Murphy DO sodium chloride 0.9 % infusion, 250 mL/hr, IntraVENous, PRN, Flaco Rivera DO Past Medical History: Active Ambulatory Problems Diagnosis Date Noted Hypertensive emergency 02/21/2022 Resolved Ambulatory Problems Diagnosis Date Noted No Resolved Ambulatory Problems Past Medical History: Diagnosis Date Chronic kidney disease (CKD) Hemodialysis patient ([facility]/HCC) (HCC) History of blood transfusion 02/27/2022 Hypertension Seizure ([facility]) Past Surgical History: Social History Socioeconomic History Marital status: Spouse name: Not on file Number of children: Not on file Years of education: Not on file Highest education level: Not on file Occupational History Not on file Tobacco Use Smoking status: Never Smokeless tobacco: Never Vaping Use Vaping status: Never Used Substance and Sexual Activity Alcohol use: Yes Alcohol/week: 2.0 standard drinks of alcohol Types: 2 Glasses of wine per week Comment: weekly Drug use: Never Sexual activity: Not on file Other Topics Concern Not on file Social History Narrative Not on file Social Determinants of Health Financial Resource Strain: Not on file Food Insecurity: Not on file Transportation Needs: No Transportation Needs (02/22/2022) PRAPARE - Transportation Lack of Transportation (Medical): No Lack of Transportation (Non-Medical): No Physical Activity: Not on file Stress: Not on file Social Connections: Not on file Intimate Partner Violence: Not At Risk (08/07/2022) Humiliation, Afraid, Rape, and Kick questionnaire Fear of Current or Ex-Partner: No Emotionally Abused: No Physically Abused: No Sexually Abused: No Housing Stability: Not on file Family History: Family History Problem Relation Name Age of Onset Dementia Mother Stroke Father Breast cancer Cousin No family history colon or stomach cancer. Social History: TOBACCO: reports that she has never smoked. She has never used smokeless tobacco. ETOH: reports current alcohol use of about 2.0 standard drinks of alcohol per week. DRUGS: reports no history of drug use. REVIEW OF SYSTEMS: No fever, chills, or sweats. Normal appetite and weight. No GALVIN, visual disturbance, eye pain, jaundice, sore throat or mouth ulcers. No skin rash or itching. No CP, SOB, BRAY, cough or wheeze. No urinary frequency, urgency, hematuria, or dysuria. No myalgia, arthralgia, or joint swelling. No weakness, numbness, or confusion. GI per HPI. No polyuria, polydipsia, heat or cold intolerance. PHYSICAL EXAM: VS: BP 153/70 (BP Location: Right arm, Patient Position: Lying) Pulse 89 Temp 36.9 C (98.4 F) (Temporal) Resp 20 Ht 5' 4 (1.626 m) Wt 117 lb 1 oz (53.1 kg) SpO2 99% BMI 20.09 kg/m Body mass index is 20.09 kg/m . Constitutional: No acute distress. Well-nourished. Well hydrated. Laying comfortably in bed. Head/Eyes: Pupils are equal and round; Conjunctiva are not injected; Sclera are non-icteric. ENT: Ears/nose without external abnormalities. Oral mucosa is pink and moist. Neck: No JVD. No carotid bruits; No thyromegaly. Respiratory: Clear to auscultation bilaterally without any added sounds. Effort is normal Heart: Regular, Normal S1 and S2. No murmur; No added sounds. Abdomen: Normal BS, soft, non-tender, non-distended; no hepatomegaly. Extremities/Skin: No LE edema; Skin warm to touch and well perfused. Musculoskeletal: Head - normocephalic. Neck - supple Psychiatric: AAO x 3, answers appropriately, normal mood, normal affect. Non-focal. DATA: Recent blood work and relevant radiologic and endoscopic studies were reviewed and discussed with the patient. CBC: Recent Labs 01/21/24 0036 01/21/24 0058 01/21/24 0618 01/22/24 0010 01/23/24 0504 WBC 22.8* -- -- 17.7* 13.8* RBC 2.32* -- -- 2.71* 2.70* HGB 7.0* < > 8.2* 8.0* 8.0* HCT 21.0* < > 24.9* 24.3* 24.7* MCV 90.5 -- -- 89.7 91.5 MCH 30.2 -- -- 29.5 29.6 MCHC 33.3 -- -- 32.9 32.4 RDW 16.4* -- -- 16.8* 16.0* PLT 268 -- -- 292 325 MPV 10.5 -- -- 10.4 10.0 < > = values in this interval not displayed. CMP: Recent Labs 01/21/246 01/22/24 0010 01/23/24 0504 NA 135 133* 136 K 4.5 4.8 4.4 CL 100 102 101 CO2 26 21* 30 BUN 26* 49* 26* CREATININE 4.74* 7.66* 4.86* GLUCOSE 85 78 107* CALCIUM 7.4* 6.7* 7.6* PT/INR: No results for input(s): INR in the last 72 hours. Radiologic Review CTA abdomen pelvis 01/19/2024 ndication: GI bleeding. FINDINGS: Unenhanced abdomen and enhanced abdomen with 75 mL Isovue 370 performed. Dose reduction and automated exposure control utilized. Lung bases are grossly clear. No free air seen. Increased stool within bowel suspicious for constipation. Mild infiltration adjacent to sigmoid colon. Diverticula noted. No convincing pneumatosis or abscess or obstruction. Appendix not confidently seen. Atrophic kidneys. No convincing active disease of the liver, gallbladder pancreas or spleen. Atherosclerotic calcifications of the aorta noted. No convincing dissection or acute stenosis. There is extravasation into the ascending colon. IMPRESSION: Descending colon active bleeding. An element of diverticulitis possible. DTR Dr Kaur Endoscopic Review None on Epic or Care Everywhere IMPRESSION/RECOMMENDATIONS: Acute normocytic anemia- Hgb on presentation 7.7 (01/18) ,s/p 3 units PRBC, now stable at 8.0. Vitally stable. Hematochezia- resolved without IR intervention, likely from descending colon. Abnormal CTA- Descending colon active bleeding. An element of diverticulitis possible. -Plan for colonoscopy 01/24/[address] Gilman. -CLD diet today with bowel prep. -Agree with transfer to floor. -Continue care per primary team. -Plan shared with primary. -GI will follow. Cosigned by Analilia Jo MD at 01/24/2024 11:46 AM EDT Associated Order(s): IP CONSULT TO NEPHROLOGY [facility] [id number] [place] [address] Consult Note Patient's Name: Apoorva Gonzalez 9:14 AM 01/20/2024 Reason for Consult: ESRD History of Present Ilness: Apoorva Gonzalez is a 73 y.o. female with hx including ESRD, HTN, seizure who presented with blood in stool. Went to IR, but embolization was not done due to no active bleeding, femoral artery sheath was left in place. 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 Patient denied SOB. Past Medical History: Diagnosis Date Chronic kidney disease (CKD) Hemodialysis patient (CMS/HCC) (HCC) Wednesday, , Wednesday History of blood transfusion 02/27/2022 Hypertension Seizure (HCC) Developed seizure-like activity on 02/24 during hospital admission Past Surgical History: Procedure Laterality Date AV FISTULA PLACEMENT Left 08/07/2022 IR CVC TUNNELED DIALYSIS CATHETER PLACEMENT 02/27/2022 IR CVC TUNNELED CATHETER PLACEMENT 02/27/2022 Candis Andrade MD [facility] SPECIAL PROCEDURES Family History Problem Relation Name Age of Onset Dementia Mother Stroke Father Breast cancer Cousin reports that she has never smoked. She has never used smokeless tobacco. She reports current alcohol use of about 2.0 standard drinks of alcohol per week. She reports that she does not use drugs. Allergies: Patient has no known allergies. Medications: No current facility-administered medications on file prior to encounter. Current Outpatient Medications on File Prior to Encounter Medication Sig Dispense Refill amLODIPine (Norvasc) 5 MG tablet Take 1 tablet (5 mg) by mouth daily. (Patient taking differently: Take 10 mg by mouth daily.) 30 tablet 11 atorvastatin (Lipitor) 40 MG tablet Take 1 tablet (40 mg) by mouth Nightly. 30 tablet 11 calcium acetate (Phoslo) 667 MG tablet Take 1 tablet by mouth in the morning and 1 tablet at noon and 1 tablet in the evening. Take with meals. cholecalciferol (Vitamin D-3) 125 MCG (5000 UT) capsule Take 5,000 Units by mouth daily. levETIRAcetam (Keppra) 500 MG tablet Take 1 tablet (500 mg) by mouth daily. 30 tablet 1 omega-3 (Fish Oil) 1000 MG capsule Take 1,000 mg by mouth daily. Thiamine HCl (vitamin B-1) 250 MG tablet Take 250 mg by mouth daily. VITAMIN E PO Take by mouth daily. Review of Systems: ROS as in HPI Physical exam: BP 148/66 Pulse 102 Temp 37.3 C (99.2 F) (Temporal) Resp 18 Ht 1.626 m (5' 4) Wt 51.7 kg (113 lb 15.7 oz) SpO2 100% BMI 19.56 kg/m NAD Was alert No significant lower extremity pitting edema appreciated Labs: Recent Labs 01/19/24174601/19/249 01/20/248 WBC 15.9* -- 20.1* HGB 7.7* 9.5* 8.5* HCT 24.4* 28.4* 24.9* MCV 93.5 -- 89.2 PLT 465* -- 285 Recent Labs 01/19/24174601/20/24347 NA 135 132* K 4.9 5.3* CL 92* 97* CO2 30 27 GLUCOSE 146* 116* PHOS -- 6.4* MG -- 2.0 BUN 47* 50* CREATININE 7.70* 8.34* CALCIUM 8.7 7.2* Ionized Calcium: No components found for: IONCA Magnesium: Lab Results Component Value Date MG 2.0 01/20/2024 Phosphorus: Lab Results Component Value Date PHOS 6.4 (H) 01/20/2024 Input / Output: 24 HR: Intake/Output Summary (Last 24 hours) at 01/20/2024 0914 Last data filed at 01/19/2024 2232 Gross per 24 hour Intake 430 ml Output -- Net 430 ml IV Intake: Whyte: Assessment: Apoorva Gonzalez is a 73 y.o. female with hx including ESRD, HTN, seizure who presented with blood in stool. Nephrology following for ESRD. ESRD -patient on TTS schedule as outpatient -access: COREEN RAMÍREZ HTN -BP with acceptable control recently Volume -ultrafiltration with HD Electrolytes -hyperkalemia -mild with recent K at 5.3 -correction/stabilization with HD -hyponatremia -in setting of ESRD -mild with recent S Na at 132 -correction/stabilization with HD/UF Acid/base -stabilization with HD Anemia -acute blood loss -recent Hgb 8.5 -Fe/HODAN titration can be done as outpatient -transfuse PRN per primary CKD MBD -recent PO4 elevated at 6.4 -dialysis should help lower Plan: -continue HD on TTS schedule, HD today PARK Arauz CNP Pt seen and examined independently by me. I reviewed with MAYANK Leyva the medical history and the findings on physical examination. I discussed the patient s diagnosis and concur with the treatment plan as documented in his note. Please call [phone] or message me through [employer] with any questions or concerns. Images from the original note were not included. Internal Medicine: MICU Initial Consult Name: Apoorva Gonzalez : 1950(73 y.o.) Date: 01/20/24 Attending: Dr. Delgado Subjective: Chief Complaint: Rectal bleeding HPI: Apoorva Gonzalez is a 73 y.o. F with a PMHx significant for ESRD on HD (T//), HTN, Hx seizures, who presented to [facility] ED on 01/19/2024 due to 10 episodes of bright red and dark bloody stools that began the previous day and continued into the day on 01/18. On arrival to the ED, vital signs stable though notable for mild tachycardia to 101 with blood pressure of 128/68. Respirations of 16 with SpO2 of 100% on room air. While in the ED, patient did have multiple episodes of bright red bloody bowel movements and did experience a bout of syncope during one of her bowel movements characterized by fall onto her right forearm, though did not hit her head or fully lose consciousness. Labs on arrival were notable for WBCs of 15.9, hemoglobin 7.7, platelets of 465. CMP revealing elevated creatinine of 7.7 in the setting of known ESRD, with BUN of 47. Stat CTA of the abdomen and pelvis revealed descending colonic active bleed with elements of diverticulosis possible. Patient was transferred to IR; unsuccessful procedure, as bleeding had stopped. Due to the intermittent nature of descending clinic bleeds, the decision was made to keep the patient's arterial sheath in place, as further need for intervention is very possible. Now s/p x2 units pRBC with improvement in hemoglobin to 9.5. On evaluation, the patient is resting in bed comfortably and in no acute distress. She denies any current lightheadedness, or dizziness. She also denies any abdominal pain. She states that she has never had a GI bleed in the past, though remarks that in the last 2 weeks, she had begun to change her diet and had eaten beef jerky for the first time 2 weeks prior. Ever since eating her beef jerky, she noted lower extremity edema, though this seems to be unrelated. Denies any blood thinners (apart from heparin with HD) or NSAID use. Otherwise, she denies any recent changes in bowel movements. She denies any nausea, vomiting, or any additional pains globally apart from her left forearm pain, though is able to move her upper extremity appropriately and without visible deformity. Discussed plans for close monitoring in the setting of possible intermittent GI bleed and the need for potentially going back to IR should she become symptomatic, hemodynamically unstable, or with recurrence of bright red blood per rectum. Patient understanding of plan and agreeable with no additional questions or concerns at this time. Additionally, discussed CODE STATUS. At this time, the patient would like transition her code status to DNR-CCA - okay for ICU transfer though not okay for intubation. Discussed that this will be reflected in the chart per her wishes. Pt with no additional questions or concerns at this time. Past Medical History: Diagnosis Date Chronic kidney disease (CKD) Hemodialysis patient ([facility]) ([facility]) Wednesday, , Wednesday History of blood transfusion 02/27/2022 Hypertension Seizure ([facility]) Developed seizure-like activity on 02/24 during hospital admission Past Surgical History: Procedure Laterality Date AV FISTULA PLACEMENT Left 08/07/2022 IR CVC TUNNELED DIALYSIS CATHETER PLACEMENT 02/27/2022 IR CVC TUNNELED CATHETER PLACEMENT 02/27/2022 Candis Andrade MD [facility] SPECIAL PROCEDURES Family History Problem Relation Name Age of Onset Dementia Mother Stroke Father Breast cancer Cousin Social History Socioeconomic History Marital status: Spouse name: Not on file Number of children: Not on file Years of education: Not on file Highest education level: Not on file Occupational History Not on file Tobacco Use Smoking status: Never Smokeless tobacco: Never Vaping Use Vaping status: Never Used Substance and Sexual Activity Alcohol use: Yes Alcohol/week: 2.0 standard drinks of alcohol Types: 2 Glasses of wine per week Comment: weekly Drug use: Never Sexual activity: Not on file Other Topics Concern Not on file Social History Narrative Not on file Social Determinants of Health Financial Resource Strain: Not on file Food Insecurity: Not on file Transportation Needs: No Transportation Needs (02/22/2022) PRAPARE - Transportation Lack of Transportation (Medical): No Lack of Transportation (Non-Medical): No Physical Activity: Not on file Stress: Not on file Social Connections: Not on file Intimate Partner Violence: Not At Risk (08/07/2022) Humiliation, Afraid, Rape, and Kick questionnaire Fear of Current or Ex-Partner: No Emotionally Abused: No Physically Abused: No Sexually Abused: No Housing Stability: Not on file No Known Allergies Prior to Admission medications Medication Sig Start Date End Date Taking? Authorizing Provider amLODIPine (Norvasc) 5 MG tablet Take 1 tablet (5 mg) by mouth daily. Patient taking differently: Take 10 mg by mouth daily. 03/02/22 03/02/23 PARK Lipscomb CNP atorvastatin (Lipitor) 40 MG tablet Take 1 tablet (40 mg) by mouth Nightly. 03/02/22 03/02/23 PARK Lipscomb CNP calcium acetate (Phoslo) 667 MG tablet Take 1 tablet by mouth in the morning and 1 tablet at noon and 1 tablet in the evening. Take with meals. 07/01/22 Historical ProviderMD cholecalciferol (Vitamin D-3) 125 MCG (5000 UT) capsule Take 5,000 Units by mouth daily. Historical Provider, levETIRAcetam (Keppra) 500 MG tablet Take 1 tablet (500 mg) by mouth daily. 03/02/22 08/26/22 PARK Lipscomb CNP omega-3 (Fish Oil) 1000 MG capsule Take 1,000 mg by mouth daily. Historical Provider, Thiamine HCl (vitamin B-1) 250 MG tablet Take 250 mg by mouth daily. Historical Provider, VITAMIN E PO Take by mouth daily. Historical Provider, Objective: Oxygen Delivery: VITALS: BP 139/71 Pulse 93 Temp 37.2 C (98.9 F) Resp 13 Ht 1.626 m (5' 4) Wt 50.3 kg (111 lb) SpO2 100% BMI 19.05 kg/m CURRENT PULSE OXIMETRY: SpO2: 100 % Review of Systems Constitutional: Negative for chills, fatigue and fever. Respiratory: Negative for shortness of breath. Cardiovascular: Negative for chest pain. Gastrointestinal: Positive for blood in stool. Negative for abdominal pain, constipation, diarrhea, nausea and vomiting. Genitourinary: Negative for difficulty urinating and dysuria. Neurological: Negative for dizziness, light-headedness and headaches. Constitutional: General Appearance []WDWN []Obese []Cachectic [x]Thin []Ill Eyes: Inspection of Pupils/Irises Pupils round and react: [x]Yes []No Sclera: []Icteric [x]Non-Icteric Inspection of Conjunctiva/Lids Conjunctiva: []Injected [x]Non-Injected Lids: [x]Intact []Lesion Present ENT/Mouth: External Inspection of ears/nose [x] Normal [] Scar/Lesion/Mass Inspection of teeth/lips/gums Dentition: [][place] Teeth []Dentures Lips/Gums: [x]Intact []Lesion Present Mucosa: [x][place] [x]Moist []Dry Neck: External Appearance Overall Appearance: [x]Normal []Lesion/Mass/Crepitus Present Trachea midline: [x]Yes []No Thyroid [x]Normal []Enlarged []Tender []Mass []Absent Respiratory: Respiratory effort []Labored [x]Non-Labored [] Mechanically-Ventilated Auscultation [x]Clear []Crackles []Wheezes [][place] Cardiovascular: Auscultation Rate: [x]Regular []Irregular []Tachycardia []Bradycardia Rhythm: [x]Regular []Irregular Murmur: []Present [x]Absent Extremities Peripheral Edema: []Present [x]Absent Varicosities: []Present [x]Absent Gastrointestinal: Abdomen Palpation: [x]Soft []Firm []Tender [x]Non-Tender []Distended [x]Non-distended Mass: []Present [x]Absent Bowel Sounds: [x]Present []Absent Hernia: []Present [x]Absent Liver/Spleen: []Hepatosplenomegaly [x]Organomegaly Absent Musculoskeletal: Inspection of Digits and Nails Cyanosis: []Present [x]Absent Clubbing: []Present [x]Absent Ischemia: []Present [x]Absent Infection: []Present [x]Absent Extremities ANDERSON Equally: Except ([]RUE []RLE []LUE []LLE) Strength/Tone: Intact and Normal ([]RUE []RLE []LUE []LLE) Skin: Inspection [x]Normal []Rash []Lesion []Ulcer Palpation [x]Warm []Cool [x]Dry []Clammy []Nodules []Induration []Skin-tightening Cap-Refill: [x] <3 sec [] >3 seconds (delayed) Neurologic: GCS EYE: 4 - Opens spontaneously GCS MOTOR: 6 - Obeys commands for movement GCS VERBAL: 5 - Oriented to person, place, time Total GCS: 15 [x] Sensation grossly intact Psych: Mental Status Alert: [x]Yes [] No Oriented: []x0 []X1 []X2 [x]x3 Mood/Affect [x]Normal []Flat []Agitated []Depressed []Anxious []Calm []Sedated []NAD Select Labs within last 24 hours- BMP: Recent Labs 01/19/24 174 NA 135 K 4.9 CL 92* CO2 30 BUN 47* CREATININE 7.70* CALCIUM 8.7 LFTs: Recent Labs 01/19/24 174 AST 23 ALT 14 PROT 7.0 ALBUMIN 4.0 BILITOT 0.5 ALKPHOS 88 Glucose: Recent Labs 01/19/24 174 GLUCOSE 146* Procal: No results for input(s): PROCAL in the last 72 hours. CBC: Recent Labs 01/19/241746 WBC 15.9* HGB 7.7* HCT 24.4* PLT 465* MCV 93.5 RDW 16.7* ABGs: No results for input(s): PHART, KTO0ROW, PO2ART, DRG0OYL, SO2ART, M6ZCDJEC in the last 72 hours. Lactic Acid: No results for input(s): LACTATE in the last 72 hours. INR: Recent Labs 01/19/24 1758 INR 1.0 Cardiac Injury Profile: Recent Labs 01/19/241746 TROPONINI <0.012 Labs in Last 3 months: Lab Results Component Value Date TSH 2.317 02/22/2022 INR 1.0 01/19/2024 Microbiology- Urine Cx: No results found for: URINECX Blood Cx: No results found for: BLOODCX Sputum Cx: No results found for: RESPCULT Gram Stain: No results found for: LABGRAM PNA PCR: No results found for: HUMANMETAPNE COVID19: No results found for: COVID19 Legionella Ag: No results found for: LEGIONELLAPN Strep Ag: No results for input(s): STREPPNEUMO in the last 72 hours. Imaging- CTA abdomen pelvis angio, 01/18 IMPRESSION: Descending colon active bleeding. An element of diverticulitis possible. DTR Dr Kaur Assessment and Plan: Principal Problem: Gastrointestinal hemorrhage, unspecified gastrointestinal hemorrhage type Assessment: Acute blood loss anemia 2/2 descending colonic bleed Acute descending colonic bleed ESRD, on HD (//) Hx HTN Presyncope 2/2 blood loss anemia vs vasovagal episode Hx Seizures; not on home antiepileptic medication Plan: Admit to T1 for further monitoring Recent CTA notable for descending colonic bleed though spontaneously soft en route to IR - not amenable to embolization Per IR's recommendations, will retain arterial sheath for 24 hours and consider removing if no concern for re-bleed. If develops recurrent GI bleeding, continued abrupt drop in Hgb or hemodynamic instability, will proceed with repeat STAT CTA and IR consideration Continue to closely monitor hemodynamics; remains stable at this time S/p x2 pRBC with improvement in Hgb; pt now asymptomatic Continue to monitor on telemetry Strict bed rest H&H Q6H Checking L upper extremity X-ray; low concern for fx though with continued pain. No visible deformities Pt reports that she has not been on her home Keppra for approximately 1 year per her PCPs recommendations; as such, holding and will likely discontinue altogether as her hx of seizure occurred while hospitalized and has had none since. GI Prophylaxis: Pantoprazole IV DVT Prophylaxis: SCDs BMI Classification: Body mass index is 19.05 kg/m . normal BMI 18.5-24.9 Disposition: Remain in ICU Status Cosigned by aGbriel Delgado MD at 01/20/2024 2:48 AM EDT Associated attestation - Gabriel Delgado MD - 01/20/2024 2:48 AM EDT I have personally seen the patient and examined along with the CRISTO/resident team. I personally obtained the saavedra and relevent portions of the history and performed physical exam. I reviewed the chart including MAR , labs and radiology and discussed the patient's plan of action with the resident/CRISTO. This note reflects my plan of care as I have edited the note to reflect my findings and my assessment and plan. Date of service: 01/20/24 Discussed with: [x]Residents [x]Patient/Family [x]RN [x]Consultants []SW/TCC []Other []CRISTO Personally Reviewed: [x]Epic notes [x]Radiology studies [x]Labs []EKG []Other In addition to resident/CRISTO documentation pertinent History, ROS, and/or Physical Exam findings include: 73 year-old female with PMH significant for ESRD on iHD, HTN who presented to [facility] ED with complaints of BRBPR. She was found to have active bleeding in the descending colon on CTA and was taken to IR. IR was unable to complete embolization due to no active bleeding so they left sheath in femoral artery in case of recurrent bleeding. Due to sheath being left in place patient was admitted to ICU. Patient has received two units of PRBCs prior to arrival to unit. She has remained HDS. Assessment: -Acute lower GI bleeding -ABLA -ESRD on iHD -HTN -Hx seizures -Syncope Plan: -Admit to ICU -Continue q6h CBC -Keep NPO -Will plan for repeat attempt at embolization if rebleeding or hemodynamic instability. -Remainder as per resident documentation ICU Checklist: DVT prophylaxis: SCDs GI prophylaxis: PPI Bowel Regimen: prn miralax Glycemic control: SSI Lines/Devices/Tubes w/ dates: right femoral sheath, PIV GOC/Family Discussions: Full Code Excluding procedures, the total critical care time invested in the care of this patient with life threatening/unstable organ failure today is at least 35 minutes. This includes direct patient contact, review of medical record, management of life support systems, review of data including imaging and labs, discussions with other team members, patient's family and physicians. documented in this encounter [facility] 01-23-2024 Plan of care note The patient is Moderately Stable - Low risk of patient condition declining or worsening [facility] 01-22-2024 Nurse Note Patient Name: Apoorva Gonzalez Patient : 1950 Acct: [id number] Date of Admission: 01/19/2024 Room/Bed: T1126/[facility] A Code Status: DNR-CCA Allergies: No Known Allergies Diagnosis: Patient Active Problem List Diagnosis Hypertensive emergency Gastrointestinal hemorrhage, unspecified gastrointestinal hemorrhage type Treatment: Hemodialysis 1:1 Priority: Routine Location: ICU Diabetic: No NPO: No Isolation Precautions: Dialysis Consent for Treatment Verified: Yes Blood Consent Verified: Not Applicable ICEBOAT: Identify, Consent, Equipment, HepB Status, Orders Complete, Access Verified, Timeliness Second Clinician Verifying: Jose Andrea RN Time out performed prior to access at 1537. Report Received from Primary RN at 1520. Primary RN (First Initial, Last Name, Title): Jose Andrea RN Incapacitated Nurse Education Completed: Yes O.A. HBsAg ONLY: Date Drawn: March 25, 2023 Results: Negative HBsAb: Date Drawn: March 25, 2023 Results: Immune >10 Order Dialyzer: Nipro Na+ Modeling: Not Applicable Dialysate Temperature (C): 36 Blood Flow Rate (BFR): 350 Dialysate Flow Rate (DFR): 600 Access to be Utilized Access: AVF Location: Upper Extremity Side: Left Needle gauge: 16 + Bruit/Thrill: Yes First Use X-ray Verified: Not Applicable OK to use line order: Not Applicable Site Assessment: Signs and Symptoms of Infection/Inflammation: None If yes: Not Applicable Dressing: na Site Prep: Medical Aseptic Technique Dressing Changed this Treatment: na If yes, by whom: na Date of Last Dressing Change: Not Applicable Antimicrobial Patch in place?: NA Red Alcohol Caps in place?: NA Gauze Dressing?: NA Non-Dialysis Use?: NA Comment: Flows: Good and Patent If access problem, who was notified: Pre and Post-Assessment Patient Vitals for the past 8 hrs: Level of Consciousness Oriented X Heart Rhythm O2 Device Bilateral Breath Sounds Skin Color Skin Condition/Temp Appetite Abdomen Inspection Bowel Sounds (All Quadrants) Edema RUE Edema LUE Edema RLE Edema LLE Edema Pain Interventions 01/22/241529 Alert (0) 3 Regular None (Room air) Clear [place] Warm;Dry Good Soft;Rounded Active Other (Comment) None None None None -- 01/22/24 1834 -- -- -- -- -- -- -- -- -- -- -- -- -- -- -- Medication (See MAR) 01/22/24 185 Alert (0) 3 Regular None (Room air) Clear -- Warm;Dry -- Soft;Rounded Active -- -- -- -- -- Medication (See JUN) Labs Lab Results Component Value Date/Time WBC 17.7 (H) 01/22/20249 HGB 8.0 (L) 01/22/20249 HCT 24.3 (L) 01/22/20249 PLT 292 01/22/20249 NA 133 (L) 01/22/20249 K 4.8 01/22/20249 CL 102 01/22/20249 CO2 21 (L) 01/22/20249 BUN 49 (H) 01/22/20249 CREATININE 7.66 (H) 01/22/20249 CALCIUM 6.7 (L) 01/22/20249 PHOS 5.5 (H) 01/22/20249 IV Drips and Rate/Dose Safety - Before each treatment: Dialysis Machine No.: [id number] RO Machine Number: [id number] Dialyzer Lot No.: [id number] Tubing Lot Number: [id number] All Connections Secure: Yes Venous Parameters Set: Yes Arterial Parameters Set: Yes NS Bag: Yes Saline Line Double Clamped: Yes Dialyzer: Nipro Prime Volume (mL): 200 mL RO Machine Number: [id number] RO Machine Log Sheet Completed: Yes Machine Alarm Self Test: Completed, Passed (01/22/241536) Air Foam Detector: pH Reading Extracorporeal Circuit Tested for Integrity: Yes Machine Conductivity: 13.7 Manual Conductivity: 13.8 Machine Ph: 7 Manual Ph: 7.6 Bleach Test (Neg): Yes Bath Temperature: 36 C (96.8 F) Conductivity Meter Serial #: [id number] Machine Functioning Alarm Free? Yes Dialysis Bath: K+ (Potassium): 2 Ca+ (Calcium): 2.5 Na+ (Sodium): 137 HCO3 (Bicarb): 32 Bicarbonate Concentrate Lot No.: [id number] Acid Concentrate Lot No.: [id number] Chlorine Testing - Before each treatment and every 4 hours: Time On: 1515 Time Off: 184 Treatment Goal: 0-3 liters uf as tolerated, keeping SBP >100 Weight Height: 162.6 cm (5' 4) (01/21/24 0947) Weight: 53.1 kg (117 lb 1 oz) (01/22/248) BMI (Calculated): 20.08 (01/22/248) 1st check: less than 0.1 ppm at: 1540 2nd check: less than 0.1 ppm at: 1714 3rd check: Not Applicable (if greater than 0.1 ppm, then check every 30 minutes from secondary) Access Flows and Pressures Patient Vitals for the past 8 hrs: Blood Flow Rate (mL/min) Ultrafiltration Rate (ml/hr) Arterial Pressure (mmHg) Venous Pressure (mmHg) TMP DFR Access Visible Intra-Hemodialysis Comments 01/22/24 1550 200 mL/min 170 ml/hr -30 mmHg 20 mmHg 50 600 Yes treatment started, call light within reach, and lines secured 01/22/24 1600 350 mL/min 170 ml/hr -150 mmHg 170 mmHg 90 600 Yes blood flow rate 350, patient requested no fluid removal 01/22/24 1615 350 mL/min 170 ml/hr -140 mmHg 170 mmHg 90 600 Yes uf removal 73, patient is tolerating treatment 01/22/24 1630 350 mL/min 170 ml/hr -140 mmHg 170 mmHg 90 600 Yes uf removal 118, patient asleep in bed 01/22/24 1645 350 mL/min 170 ml/hr -150 mmHg 180 mmHg 90 600 Yes uf removal 18 01/22/24 1700 350 mL/min 170 ml/hr -150 mmHg 180 mmHg 80 600 Yes pt resting, bicarb and acid changed, uf removal 194 01/22/24 1715 350 mL/min 170 ml/hr -150 mmHg 180 mmHg 80 600 Yes pt states she feel ok , uf removal 239 01/22/24 1730 350 mL/min 170 ml/hr -150 mmHg 170 mmHg 80 600 Yes pt resting, uf removal 281 01/22/24 1745 350 mL/min 170 ml/hr -150 mmHg 170 mmHg 70 600 Yes pt is resting in bed, uf removed is 324 01/22/24 1800 350 mL/min 170 ml/hr -150 mmHg 170 mmHg 80 600 Yes pt is resting in bed, uf is 367 01/22/24 1815 350 mL/min 170 ml/hr -150 mmHg 180 mmHg 0 600 Yes pt is relaxing while watching t.v., uf is 406 01/22/24 1830 350 mL/min 170 ml/hr -150 mmHg 280 mmHg 60 600 Yes pt is relaxing, uf removed 01/22/24 1844 250 mL/min -- -- -- -- 600 -- treatment complete/ dc early due to clotting / uf removal 472 Vital Signs Patient Vitals for the past 24 hrs: BP Temp Temp src Pulse Resp SpO2 Weight 01/22/24 1858 (!) 164/76 36.4 C (97.6 F) -- 98 18 100 % -- 01/22/24 1844 (!) 178/98 -- -- 100 -- 100 % -- 01/22/24 1830 (!) 174/71 -- -- 97 -- 100 % -- 01/22/24 1815 (!) 165/73 -- -- 92 -- 100 % -- 01/22/24 1800 154/72 -- -- 91 -- 100 % -- 01/22/24 174 (!) 162/82 -- -- 89 -- 100 % -- 01/22/24 1730 160/69 -- -- 87 -- 100 % -- 01/22/24 1715 147/70 -- -- 98 -- 100 % -- 01/22/24 1700 160/75 -- -- 85 -- 100 % -- 01/22/24 1645 145/84 -- -- 88 -- 100 % -- 01/22/24 1630 (!) 172/81 -- -- 86 -- 99 % -- 01/22/24 1615 (!) 164/69 -- -- 87 -- 100 % -- 01/22/24 1600 156/69 -- -- 86 -- 100 % -- 01/22/24 1550 148/84 -- -- 88 -- 98 % -- 01/22/24 1537 -- -- -- 85 -- 99 % -- 01/22/24 1530 148/84 36.8 C (98.2 F) -- 85 17 100 % -- 01/22/24 1528 148/84 -- -- -- -- -- -- 01/22/24 1000 133/74 -- -- 84 -- 100 % -- 01/22/24 0912 138/67 36.8 C (98.3 F) Temporal 89 25 99 % -- 01/22/24 0600 148/65 -- -- 89 16 100 % -- 01/22/24 0500 140/63 -- -- 91 19 99 % -- 01/22/24 0400 130/56 36.7 C (98 F) Temporal 85 17 98 % -- 01/22/24 0300 141/59 -- -- 89 19 98 % -- 01/22/24 0200 125/59 -- -- 92 19 99 % -- 01/22/24 0100 -- -- -- 94 18 99 % -- 01/22/24 0009 -- -- -- -- -- -- 53.1 kg (117 lb 1 oz) 01/22/24 0000 141/67 36.8 C (98.2 F) Temporal 91 15 100 % -- 01/21/24 2300 127/63 -- -- 90 (!) 11 100 % -- 01/21/24 2200 147/58 -- -- 92 19 99 % -- 01/21/24 2100 134/65 -- -- 89 12 99 % -- 01/21/24 2000 137/58 36.7 C (98 F) Temporal 89 15 100 % -- Post-Dialysis Arterial Catheter Locking Solution: NA Venous Catheter Locking Solution: Not Applicable Post-Treatment Procedures: Blood returned, Access bleeding time < 10 minutes Machine Disinfection Process: Acid/Vinegar Clean, Heat Disinfect, Exterior Machine Disinfection Rinseback Volume (mL): 300 mL Total Liters Processed (L/min): 55.9 L/min Dialyzer Clearance: Lightly streaked Hemodialysis Intake (ml): 500 ml Hemodialysis Output (ml): 472 ml NET Removed (ml): -28 ml Tolerated Treatment: Good Patient Response to Treatment: stable Physician Notified: No Patient Disposition: Remain in ICU/ED Charge: $ IP Hemodialysis Charge: Hemodialysis Provider Notification Provider Notification Reason for Communication: Evaluate (High BPs with dialysis, 10/10 pain in right leg/hip area) Provider Name: Dr. Darling Provider Role: Resident Method of Communication: Secure chat Response: At bedside Notification Time: 1630 Shift Event: Fall Reason for Communication: Evaluate (High BPs with dialysis, 10/10 pain in right leg/hip area) Provider Role: Resident Method of Communication: Secure chat Response: At bedside Notification Time: 1630 Handoff complete and report given to Primary RN at 1902 Primary RN (First Initial, Last Name, Title): Jose Andrea Rn Education Person Educated: Patient Knowledge Base: Substantial Barriers to Learning?: None Preferred method of Learning: Oral Topic(s): Procedural and fluid management Teaching Tools: Explanation Response to Education: Verbalized Understanding T [facility] 01-22-2024 Plan of care note Problem: Knowledge Deficit Goal: Patient/family/caregiver demonstrates understanding of disease process, treatment plan, medications, and discharge instructions Outcome: Progressing Problem: Potential for Compromised Skin Integrity Goal: Skin Integrity is Maintained or Improved Outcome: Progressing Goal: Nutritional status is improving Outcome: Progressing Problem: Urinary Incontinence Goal: Perineal skin integrity is maintained or improved Outcome: Progressing Problem: Problem Interventions Goal: Assess Nutritional Intake Outcome: Progressing [facility] 01-21-2024 Plan of care note Problem: Knowledge Deficit Goal: Patient/family/caregiver demonstrates understanding of disease process, treatment plan, medications, and discharge instructions Outcome: Progressing Problem: Potential for Compromised Skin Integrity Goal: Skin Integrity is Maintained or Improved Outcome: Progressing Goal: Nutritional status is improving Outcome: Progressing Problem: Urinary Incontinence Goal: Perineal skin integrity is maintained or improved Outcome: Progressing Problem: Problem Interventions Goal: Assess Nutritional Intake Outcome: Progressing [facility] 01-21-2024 Note Formatting of this n ote might be different from the original. Care Management Progress Note Patient remains in CTV ICU with GI bleed/acute blood anemia. VSS, on RA, in NSR on tele, transfused PRBC again overnight, iHD per outpatient schedule (T/H/S at [facility]) sheath to be removed and PT/OT evals pending. DCP-home with no anticipated needs. Length of Stay (Days): 2 GMLOS: 4.5 [facility] 01-21-2024 Note Formatting of this n ote might be different from the original. Care Management Progress Note Patient remains in CTV ICU with GI bleed/acute blood anemia. VSS, on RA, in NSR on tele, transfused PRBC again overnight, iHD per outpatient schedule (T/H/S at [facility]) sheath to be removed and PT/OT evals pending. DCP-home with no anticipated needs. Length of Stay (Days): 2 GMLOS: 4.5 [facility] 01-20-2024 Nurse Note Patient Name: Apoorva Gonzalez Patient : 1950 Acct: [id number] Date of Admission: 01/19/2024 Room/Bed: T1-126/T1-126 A Code Status: DNR-CCA Allergies: No Known Allergies Diagnosis: Patient Active Problem List Diagnosis Hypertensive emergency Gastrointestinal hemorrhage, unspecified gastrointestinal hemorrhage type Treatment: Hemodialysis 1:1 Priority: Routine Location: ICU Diabetic: No NPO: Yes Isolation Precautions: None Consent for Treatment Verified: Yes Blood Consent Verified: Not Applicable ICEBOAT: Identify, Consent, Equipment, HepB Status, Orders Complete, Access Verified, Timeliness Second Clinician Verifying: [place] Time out performed prior to access at 1510. Report Received from Primary RN at 1500. Primary RN (First Initial, Last Name, Title): Isael Pritchard RN Incapacitated Nurse Education Completed: Quinn Julien RN HBsAg ONLY: Date Drawn: March 25, 2023 Results: Negative HBsAb: Date Drawn: March 25, 2023 Results: Immune >10 Order Dialyzer: Nipro Na+ Modeling: Not Applicable Dialysate Temperature (C): 36 Blood Flow Rate (BFR): 350 Dialysate Flow Rate (DFR): 600 Access to be Utilized Access: AVF Location: Upper Extremity Side: Left Needle gauge: 16 + Bruit/Thrill: Yes First Use X-ray Verified: Not Applicable OK to use line order: Not Applicable Site Assessment: Signs and Symptoms of Infection/Inflammation: None If yes: Not Applicable Dressing: N/A Site Prep: Medical Aseptic Technique Dressing Changed this Treatment: N/A If yes, by whom: N/A Date of Last Dressing Change: N/A N/A [address]?: N/A Red Alcohol Caps in place?: N/A Gauze Dressing?: N/A Non-Dialysis Use?: No Comment: Flows: Good If access problem, who was notified: Pre and Post-Assessment Patient Vitals for the past 8 hrs: Level of Consciousness Oriented X Heart Rhythm O2 Device Bilateral Breath Sounds Skin Color Skin Condition/Temp Abdomen Inspection Bowel Sounds (All Quadrants) RUE Edema LUE Edema RLE Edema LLE Edema 01/20/24 1100 -- -- -- -- Diminished -- -- Soft;Nondistended Active None None None None 01/20/24 1500 -- -- -- -- Diminished -- -- Soft;Nondistended Active None None None None 01/20/24 1506 Alert (0) 3 Regular None (Room air) Clear [place] Warm;Dry;No swelling Soft Active -- -- -- -- Labs Lab Results Component Value Date/Time WBC 20.1 (H) 01/20/2024347 HGB 7.3 (L) 01/20/2024 1509 HCT 21.3 (L) 01/20/2024 1509 PLT 285 01/20/2024347 NA 132 (L) 01/20/2024347 K 5.3 (H) 01/20/2024347 CL 97 (L) 01/20/2024347 CO2 27 01/20/2024347 BUN 50 (H) 01/20/2024347 CREATININE 8.34 (H) 01/20/2024347 CALCIUM 7.2 (L) 01/20/2024347 PHOS 6.4 (H) 01/20/2024347 IV Drips and Rate/Dose Safety - Before each treatment: Dialysis Machine No.: [id number] RO Machine Number: [id number] Dialyzer Lot No.: [id number] Tubing Lot Number: [id number] All Connections Secure: Yes Venous Parameters Set: Yes Arterial Parameters Set: Yes NS Bag: Yes Saline Line Double Clamped: Yes Dialyzer: Nipro Prime Volume (mL): 200 mL RO Machine Number: [id number] RO Machine Log Sheet Completed: Yes Machine Alarm Self Test: Completed, Passed (1445) (01/20/24 1445) Air Foam Detector: pH Reading, Proper Function, Tested Extracorporeal Circuit Tested for Integrity: Yes Machine Conductivity: 13.8 Manual Conductivity: 13.7 Machine Ph: 7 Manual Ph: 7 Bleach Test (Neg): Yes Bath Temperature: 36 C (96.8 F) Conductivity Meter Serial #: [id number] Machine Functioning Alarm Free? Yes Dialysis Bath: K+ (Potassium): 2 Ca+ (Calcium): 2.5 Na+ (Sodium): 137 HCO3 (Bicarb): 32 Chlorine Testing - Before each treatment and every 4 hours: Time On: 1514 Time Off: 1814 Treatment Goal: 3L Weight Height: 162.6 cm (5' 4) (01/19/24 1659) Weight: 51.7 kg (113 lb 15.7 oz) (01/20/24 0700) BMI (Calculated): 19.55 (01/20/24 07) 1st check: less than 0.1 ppm at: 1445 2nd check: less than 0.1 ppm at: 1745 3rd check: Not Applicable (if greater than 0.1 ppm, then check every 30 minutes from secondary) Access Flows and Pressures Patient Vitals for the past 8 hrs: Blood Flow Rate (mL/min) Ultrafiltration Rate (ml/hr) Arterial Pressure (mmHg) Venous Pressure (mmHg) TMP DFR Access Visible Intra-Hemodialysis Comments 01/20/24 1515 200 mL/min 1170 ml/hr -30 mmHg 70 mmHg 80 600 Yes tx int call with pt 01/20/24 1520 350 mL/min 1170 ml/hr -160 mmHg 160 mmHg 80 600 Yes bfr increased 01/20/24 1530 350 mL/min 1170 ml/hr -190 mmHg 190 mmHg 70 600 Yes pt alert stable uf rmv 296 01/20/24 1545 350 mL/min 1170 ml/hr -190 mmHg 230 mmHg 70 600 Yes pt alert talking with staff uf rmv 626 01/20/24 1600 350 mL/min 750 ml/hr -170 mmHg 190 mmHg 70 600 Yes pt talking with boyfriend uf rmv 802 01/20/24 1615 350 mL/min 0 ml/hr -210 mmHg 190 mmHg 70 600 Yes pt bp dropped 85/59 uf turned off 01/20/24 1630 350 mL/min 0 ml/hr -210 mmHg 190 mmHg 60 600 Yes pt bp still soft uf remains off 01/20/24 1645 350 mL/min 0 ml/hr -220 mmHg 200 mmHg 60 600 Yes pt resting bp came up uf still off 01/20/24 1700 350 mL/min 0 ml/hr -210 mmHg 190 mmHg 60 600 Yes pt feeling much better talking with staff 01/20/24 1715 350 mL/min 0 ml/hr -210 mmHg 190 mmHg 60 600 Yes pt stable needles intact 01/20/24 1730 350 mL/min 0 ml/hr -160 mmHg 200 mmHg 60 600 Yes pt alert stable 01/20/24 1745 350 mL/min 0 ml/hr -160 mmHg 200 mmHg 50 600 Yes pt resting stable 01/20/24 1800 350 mL/min 0 ml/hr -160 mmHg 200 mmHg 50 600 Yes pt resting sleeping 01/20/24 1815 -- -- -- -- -- -- -- tx complete Vital Signs Patient Vitals for the past 24 hrs: BP Temp Temp src Pulse Resp SpO2 Weight 01/20/24 1829 130/81 36.9 C (98.5 F) -- 108 -- -- -- 01/20/24 1815 148/62 -- -- 108 -- -- -- 01/20/24 1800 132/64 -- -- 109 14 100 % -- 01/20/24 1745 116/65 -- -- 110 -- -- -- 01/20/24 1730 120/66 -- -- 114 -- -- -- 01/20/24 1715 133/75 -- -- 106 -- -- -- 01/20/24 1700 (!) 118/105 -- -- 109 18 100 % -- 01/20/24 1645 132/68 -- -- 105 -- -- -- 01/20/24 1630 91/62 -- -- 104 (!) 11 100 % -- 01/20/24 1615 (!) 85/59 -- -- 106 15 95 % -- 01/20/24 1600 146/78 -- -- 107 25 97 % -- 01/20/24 1545 111/67 -- -- -- -- -- -- 01/20/24 1530 120/62 -- -- 97 -- -- -- 01/20/24 1520 134/80 -- -- -- -- -- -- 01/20/24 1500 119/84 37.1 C (98.7 F) Temporal 94 16 99 % -- 01/20/24 1400 142/78 -- -- 97 18 97 % -- 01/20/24 1300 126/72 -- -- 100 21 98 % -- 01/20/24 1200 133/62 -- -- 98 16 99 % -- 01/20/24 1100 135/74 37.1 C (98.8 F) Temporal 102 19 98 % -- 01/20/24 1000 135/68 -- -- 105 (!) 9 98 % -- 01/20/24 0900 129/77 -- -- 104 23 100 % -- 01/20/24 0800 148/66 -- -- 102 18 100 % -- 01/20/24 0700 128/83 37.3 C (99.2 F) Temporal 102 15 98 % 51.7 kg (113 lb 15.7 oz) 01/20/24 0600 145/69 -- -- 101 (!) 6 95 % -- 01/20/24 0500 142/64 -- -- 102 17 99 % -- 01/20/24 0400 126/76 37.1 C (98.7 F) Temporal 98 12 97 % -- 01/20/24 0300 148/77 -- -- 98 12 100 % -- 01/20/24 0200 145/63 -- -- 96 12 100 % -- 01/20/24 0100 114/64 -- -- 97 (!) 10 100 % -- 01/20/24 0000 126/72 36.9 C (98.5 F) Temporal 97 15 100 % -- 01/19/242318 -- -- -- 93 13 100 % -- 01/19/242314 139/71 -- -- 95 18 100 % -- 01/19/242313 -- -- -- 94 22 100 % -- 01/19/242309 139/73 -- -- 95 17 100 % -- 01/19/242304 (!) 147/82 -- -- 95 (!) 11 100 % -- 01/19/242299 (!) 149/71 -- -- 99 18 100 % -- 01/19/242254 137/81 -- -- 93 18 100 % -- 01/19/242249 (!) 142/78 -- -- 95 18 100 % -- 01/19/242244 (!) 151/78 -- -- 98 25 100 % -- 01/19/242239 -- -- -- 97 13 100 % -- 01/19/242234 (!) 148/78 -- -- 95 (!) 9 100 % -- 01/19/242229 -- -- -- 97 15 100 % -- 01/19/242228 (!) 149/76 -- -- 96 13 100 % -- 01/19/242224 (!) 154/81 -- -- 98 17 100 % -- 01/19/242219 (!) 155/80 -- -- 97 12 100 % -- 01/19/242219 (!) 153/80 -- -- 98 19 100 % -- 01/19/242209 (!) 146/87 -- -- 99 22 100 % -- 01/19/242148 122/63 37.2 C (98.9 F) -- 96 12 -- -- 01/19/241951 125/71 37.1 C (98.8 F) -- 101 12 -- -- 01/19/24 193 (!) 142/53 37.2 C (99 F) -- 100 13 -- -- Post-Dialysis Arterial Catheter Locking Solution: Not Applicable Venous Catheter Locking Solution: Not Applicable Post-Treatment Procedures: Blood returned, Access bleeding time < 10 minutes Machine Disinfection Process: Exterior Machine Disinfection Rinseback Volume (mL): 300 mL Total Liters Processed (L/min): 57.2 L/min Dialyzer Clearance: Lightly streaked Hemodialysis Intake (ml): 954 ml Hemodialysis Output (ml): 500 ml NET Removed (ml): -454 ml Tolerated Treatment: Fair Charge: $ IP Hemodialysis Charge: Hemodialysis Provider Notification Provider Notification Reason for Communication: Abnormal vitals (Patient's BP dropped to 66/40 (47), medical authorization specialist immediately stopped pulling fluid. BP started coming back up. Patient also became nauseated, dizzy, and having abdominal cramping. Dr. Richardson to see patient.) Provider Name: Dr. Richardson Provider Role: Resident Method of Communication: Call Response: En route Notification Time: 1635 Shift Event: Fall Reason for Communication: Abnormal vitals (Patient's BP dropped to 66/40 (47), medical authorization specialist immediately stopped pulling fluid. BP started coming back up. Patient also became nauseated, dizzy, and having abdominal cramping. Dr. Richardson to see patient.) Provider Role: Resident Method of Communication: Call Response: En route Notification Time: 1635 Handoff complete and report given to Primary RN at 1830. Primary RN (First Initial, Last Name, Title): Isael Pritchard RN Education Person Educated: Patient Knowledge Base: Substantial Barriers to Learning?: None Preferred method of Learning: Oral Topic(s): Call Light Education, Access Care, Signs and Symptoms of Infection, and Fluid Management Teaching Tools: Explanation Response to Education: Verbalized Understanding [facility] 01-20-2024 Note Formatting of this n ote might be different from the original. Care Managment Initial Assessment Date: 01/20/2024 Patient Name: Apoorva Gonzalez : 1950 Patient Information Source of Information: Patient Cognition/Language: WFL - Within Functional Limits 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 as indicated: Yes Confirmation of Payer with patient/family: Yes Payer Name: [employer] Medicare : No Confirmation of Primary Care Physician: Confirmed PCP Name: Dr. Spain Seen in last 2 years?: Yes Primary Caregiver: Self If assistance needed, confirmed caregiver ready, willing and able to care for patient at discharge: Confirmed with: Living Arrangements Current Residence: Apartment Number of Floors 1 Number of Entry Steps: (elevator if needed) Bed/Bath Levels: Both first floor Facility: Facility Name: Plan to Return: Lives with: Alone Support Systems: Family members Activities of Daily Living Ambulation: Independent Bathing/Dressing: Independent Elimination/Continence/Toileting: Independent Feeding: Independent Who Assists with Activities of Daily Living: Instrumental Activities of Daily Living Prescription Coverage: Yes [facility] Medication Management: Independent Transportation/Shopping: Independent Transportation Mode: Car Needs Assistance with Transportation at Discharge: No Meal Preparation: Independent Laundry/Cleaning: Independent Finances/Bill Paying: Independent Communication: Independent Types of Care Services/Equipment Utilized Care Services: Dialysis Type: Hemo Dialysis Provider Name/Location: [facility] Dialysis Schedule: /WED Transportation to Dialysis: drives self Durable Medical Equipment: Patient's Goal/Discharge Plan Patient expects to be discharged to: home Discharge Planning Actions: No needs identified Patient's Choice Rights and [employer] and Collaborative Relationships Disclosed as Indicated for Post-Acute Care: Interdisciplinary Team Engagement: Social Work Referral for: Additional Information: Patient admitted to CTV ICU with acute blood loss anemia. Spoke with patient at bedside, introduced self and role. Patient from home alone, is independent, has PCP and prescription coverage, drives self to HD at [facility], will have a ride home and denies discharge needs. Christine Ribeiro RN T [facility] 01-20-2024 Note Formatting of this n ote might be different from the original. Care Managment Initial Assessment Date: 01/20/2024 Patient Name: Apoorva Gonzalez : 1950 Patient Information Source of Information: Patient Cognition/Language: WFL - Within Functional Limits 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 as indicated: Yes Confirmation of Payer with patient/family: Yes Payer Name: [employer] Medicare : No Confirmation of Primary Care Physician: Confirmed PCP Name: Dr. Spain Seen in last 2 years?: Yes Primary Caregiver: Self If assistance needed, confirmed caregiver ready, willing and able to care for patient at discharge: Confirmed with: Living Arrangements Current Residence: Apartment Number of Floors 1 Number of Entry Steps: (elevator if needed) Bed/Bath Levels: Both first floor Facility: Facility Name: Plan to Return: Lives with: Alone Support Systems: Family members Activities of Daily Living Ambulation: Independent Bathing/Dressing: Independent Elimination/Continence/Toileting: Independent Feeding: Independent Who Assists with Activities of Daily Living: Instrumental Activities of Daily Living Prescription Coverage: Yes [facility] Medication Management: Independent Transportation/Shopping: Independent Transportation Mode: Car Needs Assistance with Transportation at Discharge: No Meal Preparation: Independent Laundry/Cleaning: Independent Finances/Bill Paying: Independent Communication: Independent Types of Care Services/Equipment Utilized Care Services: Dialysis Type: Hemo Dialysis Provider Name/Location: [facility] Dialysis Schedule: /WED Transportation to Dialysis: drives self Durable Medical Equipment: Patient's Goal/Discharge Plan Patient expects to be discharged to: home Discharge Planning Actions: No needs identified Patient's Choice Rights and [employer] and Collaborative Relationships Disclosed as Indicated for Post-Acute Care: Interdisciplinary Team Engagement: Social Work Referral for: Additional Information: Patient admitted to CTV ICU with acute blood loss anemia. Spoke with patient at bedside, introduced self and role. Patient from home alone, is independent, has PCP and prescription coverage, drives self to HD at [facility], will have a ride home and denies discharge needs. Christine Ribeiro RN T [facility] 01-20-2024 Consult note Associated Order (s): IP CONSULT TO NEPHROLOGY [facility] [address] [place], [place] [id number] Consult Note Patient's Name: Apoorva Gonzalez 9:14 AM 01/20/2024 Reason for Consult: ESRD History of Present Ilness: Apoorva Gonzalez is a 73 y.o. female with hx including ESRD, HTN, seizure who presented with blood in stool. Went to IR, but embolization was not done due to no active bleeding, femoral artery sheath was left in place. 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 Patient denied SOB. Past Medical History: Diagnosis Date Chronic kidney disease (CKD) Hemodialysis patient (CMS/HCC) (HCC) Wednesday, , Wednesday History of blood transfusion 02/27/2022 Hypertension Seizure ([facility]) Developed seizure-like activity on 02/24 during hospital admission Past Surgical History: Procedure Laterality Date AV FISTULA PLACEMENT Left 08/07/2022 IR CVC TUNNELED DIALYSIS CATHETER PLACEMENT 02/27/2022 IR CVC TUNNELED CATHETER PLACEMENT 02/27/2022 Candis Andrade MD [facility] SPECIAL PROCEDURES Family History Problem Relation Name Age of Onset Dementia Mother Stroke Father Breast cancer Cousin reports that she has never smoked. She has never used smokeless tobacco. She reports current alcohol use of about 2.0 standard drinks of alcohol per week. She reports that she does not use drugs. Allergies: Patient has no known allergies. Medications: No current facility-administered medications on file prior to encounter. Current Outpatient Medications on File Prior to Encounter Medication Sig Dispense Refill amLODIPine (Norvasc) 5 MG tablet Take 1 tablet (5 mg) by mouth daily. (Patient taking differently: Take 10 mg by mouth daily.) 30 tablet 11 atorvastatin (Lipitor) 40 MG tablet Take 1 tablet (40 mg) by mouth Nightly. 30 tablet 11 calcium acetate (Phoslo) 667 MG tablet Take 1 tablet by mouth in the morning and 1 tablet at noon and 1 tablet in the evening. Take with meals. cholecalciferol (Vitamin D-3) 125 MCG (5000 UT) capsule Take 5,000 Units by mouth daily. levETIRAcetam (Keppra) 500 MG tablet Take 1 tablet (500 mg) by mouth daily. 30 tablet 1 omega-3 (Fish Oil) 1000 MG capsule Take 1,000 mg by mouth daily. Thiamine HCl (vitamin B-1) 250 MG tablet Take 250 mg by mouth daily. VITAMIN E PO Take by mouth daily. Review of Systems: ROS as in HPI Physical exam: BP 148/66 Pulse 102 Temp 37.3 C (99.2 F) (Temporal) Resp 18 Ht 1.626 m (5' 4) Wt 51.7 kg (113 lb 15.7 oz) SpO2 100% BMI 19.56 kg/m NAD Was alert No significant lower extremity pitting edema appreciated Labs: Recent Labs 01/19/24174601/19/24 2349 01/20/24 0348 WBC 15.9* -- 20.1* HGB 7.7* 9.5* 8.5* HCT 24.4* 28.4* 24.9* MCV 93.5 -- 89.2 PLT 465* -- 285 Recent Labs 01/19/247 01/20/24 0348 NA 135 132* K 4.9 5.3* CL 92* 97* CO2 30 27 GLUCOSE 146* 116* PHOS -- 6.4* MG -- 2.0 BUN 47* 50* CREATININE 7.70* 8.34* CALCIUM 8.7 7.2* Ionized Calcium: No components found for: IONCA Magnesium: Lab Results Component Value Date MG 2.0 01/20/2024 Phosphorus: Lab Results Component Value Date PHOS 6.4 (H) 01/20/2024 Input / Output: 24 HR: Intake/Output Summary (Last 24 hours) at 01/20/2024 0914 Last data filed at 01/19/2024 2832 Gross per 24 hour Intake 430 ml Output -- Net 430 ml IV Intake: Whyte: Assessment: Apoorva Gonzalez is a 73 y.o. female with hx including ESRD, HTN, seizure who presented with blood in stool. Nephrology following for ESRD. ESRD -patient on TTS schedule as outpatient -access: LUE AVG HTN -BP with acceptable control recently Volume -ultrafiltration with HD Electrolytes -hyperkalemia -mild with recent K at 5.3 -correction/stabilization with HD -hyponatremia -in setting of ESRD -mild with recent S Na at 132 -correction/stabilization with HD/UF Acid/base -stabilization with HD Anemia -acute blood loss -recent Hgb 8.5 -Fe/HODAN titration can be done as outpatient -transfuse PRN per primary CKD MBD -recent PO4 elevated at 6.4 -dialysis should help lower Plan: -continue HD on TTS schedule, HD today PARK Arauz CNP Pt seen and examined independently by me. I reviewed with MAYANK Leyva the medical history and the findings on physical examination. I discussed the patient s diagnosis and concur with the treatment plan as documented in his note. Please call [phone] or message me through [employer] with any questions or concerns. [facility] 01-20-2024 Consult note Formatting of th is note is different from the original. Images from the original note were not included. Internal Medicine: MICU Initial Consult Name: Apoorva Gonzalez : 1950(73 y.o.) Date: 01/20/24 Attending: Dr. Delgado Subjective: Chief Complaint: Rectal bleeding HPI: Apoorva Gonzalez is a 73 y.o. F with a PMHx significant for ESRD on HD (T//S), HTN, Hx seizures, who presented to [facility] ED on 01/19/2024 due to 10 episodes of bright red and dark bloody stools that began the previous day and continued into the day on 01/18. On arrival to the ED, vital signs stable though notable for mild tachycardia to 101 with blood pressure of 128/68. Respirations of 16 with SpO2 of 100% on room air. While in the ED, patient did have multiple episodes of bright red bloody bowel movements and did experience a bout of syncope during one of her bowel movements characterized by fall onto her right forearm, though did not hit her head or fully lose consciousness. Labs on arrival were notable for WBCs of 15.9, hemoglobin 7.7, platelets of 465. CMP revealing elevated creatinine of 7.7 in the setting of known ESRD, with BUN of 47. Stat CTA of the abdomen and pelvis revealed descending colonic active bleed with elements of diverticulosis possible. Patient was transferred to IR; unsuccessful procedure, as bleeding had stopped. Due to the intermittent nature of descending clinic bleeds, the decision was made to keep the patient's arterial sheath in place, as further need for intervention is very possible. Now s/p x2 units pRBC with improvement in hemoglobin to 9.5. On evaluation, the patient is resting in bed comfortably and in no acute distress. She denies any current lightheadedness, or dizziness. She also denies any abdominal pain. She states that she has never had a GI bleed in the past, though remarks that in the last 2 weeks, she had begun to change her diet and had eaten beef jerky for the first time 2 weeks prior. Ever since eating her beef jerky, she noted lower extremity edema, though this seems to be unrelated. Denies any blood thinners (apart from heparin with HD) or NSAID use. Otherwise, she denies any recent changes in bowel movements. She denies any nausea, vomiting, or any additional pains globally apart from her left forearm pain, though is able to move her upper extremity appropriately and without visible deformity. Discussed plans for close monitoring in the setting of possible intermittent GI bleed and the need for potentially going back to IR should she become symptomatic, hemodynamically unstable, or with recurrence of bright red blood per rectum. Patient understanding of plan and agreeable with no additional questions or concerns at this time. Additionally, discussed CODE STATUS. At this time, the patient would like transition her code status to DNR-CCA - okay for ICU transfer though not okay for intubation. Discussed that this will be reflected in the chart per her wishes. Pt with no additional questions or concerns at this time. Past Medical History: Diagnosis Date Chronic kidney disease (CKD) Hemodialysis patient (CMS/HCC) (HCC) Wednesday, , Wednesday History of blood transfusion 02/27/2022 Hypertension Seizure (HCC) Developed seizure-like activity on 02/24 during hospital admission Past Surgical History: Procedure Laterality Date AV FISTULA PLACEMENT Left 08/07/2022 IR CVC TUNNELED DIALYSIS CATHETER PLACEMENT 02/27/2022 IR CVC TUNNELED CATHETER PLACEMENT 02/27/2022 Candis Andrade MD [facility] SPECIAL PROCEDURES Family History Problem Relation Name Age of Onset Dementia Mother Stroke Father Breast cancer Cousin Social History Socioeconomic History Marital status: Spouse name: Not on file Number of children: Not on file Years of education: Not on file Highest education level: Not on file Occupational History Not on file Tobacco Use Smoking status: Never Smokeless tobacco: Never Vaping Use Vaping status: Never Used Substance and Sexual Activity Alcohol use: Yes Alcohol/week: 2.0 standard drinks of alcohol Types: 2 Glasses of wine per week Comment: weekly Drug use: Never Sexual activity: Not on file Other Topics Concern Not on file Social History Narrative Not on file Social Determinants of Health Financial Resource Strain: Not on file Food Insecurity: Not on file Transportation Needs: No Transportation Needs (02/22/2022) PRAPARE - Transportation Lack of Transportation (Medical): No Lack of Transportation (Non-Medical): No Physical Activity: Not on file Stress: Not on file Social Connections: Not on file Intimate Partner Violence: Not At Risk (08/07/2022) Humiliation, Afraid, Rape, and Kick questionnaire Fear of Current or Ex-Partner: No Emotionally Abused: No Physically Abused: No Sexually Abused: No Housing Stability: Not on file No Known Allergies Prior to Admission medications Medication Sig Start Date End Date Taking? Authorizing Provider amLODIPine (Norvasc) 5 MG tablet Take 1 tablet (5 mg) by mouth daily. Patient taking differently: Take 10 mg by mouth daily. 03/02/22 03/02/23 PARK Lipscomb CNP atorvastatin (Lipitor) 40 MG tablet Take 1 tablet (40 mg) by mouth Nightly. 03/02/22 03/02/23 PARK Lipscomb CNP calcium acetate (Phoslo) 667 MG tablet Take 1 tablet by mouth in the morning and 1 tablet at noon and 1 tablet in the evening. Take with meals. 07/01/22 Historical Provider, cholecalciferol (Vitamin D-3) 125 MCG (5000 UT) capsule Take 5,000 Units by mouth daily. Historical Provider, levETIRAcetam (Keppra) 500 MG tablet Take 1 tablet (500 mg) by mouth daily. 03/02/22 08/26/22 Evan Joshua, RADIATION ONCOLOGIST - AGENCY TRAINER omega-3 (Fish Oil) 1000 MG capsule Take 1,000 mg by mouth daily. Historical Provider, Thiamine HCl (vitamin B-1) 250 MG tablet Take 250 mg by mouth daily. Historical Provider, VITAMIN E PO Take by mouth daily. Historical Provider, Objective: Oxygen Delivery: VITALS: BP 139/71 Pulse 93 Temp 37.2 C (98.9 F) Resp 13 Ht 1.626 m (5' 4) Wt 50.3 kg (111 lb) SpO2 100% BMI 19.05 kg/m CURRENT PULSE OXIMETRY: SpO2: 100 % Review of Systems Constitutional: Negative for chills, fatigue and fever. Respiratory: Negative for shortness of breath. Cardiovascular: Negative for chest pain. Gastrointestinal: Positive for blood in stool. Negative for abdominal pain, constipation, diarrhea, nausea and vomiting. Genitourinary: Negative for difficulty urinating and dysuria. Neurological: Negative for dizziness, light-headedness and headaches. Constitutional: General Appearance []WDWN []Obese []Cachectic [x]Thin []Ill Eyes: Inspection of Pupils/Irises Pupils round and react: [x]Yes []No Sclera: []Icteric [x]Non-Icteric Inspection of Conjunctiva/Lids Conjunctiva: []Injected [x]Non-Injected Lids: [x]Intact []Lesion Present ENT/Mouth: External Inspection of ears/nose [x] Normal [] Scar/Lesion/Mass Inspection of teeth/lips/gums Dentition: [][place] Teeth []Dentures Lips/Gums: [x]Intact []Lesion Present Mucosa: [x][place] [x]Moist []Dry Neck: External Appearance Overall Appearance: [x]Normal []Lesion/Mass/Crepitus Present Trachea midline: [x]Yes []No Thyroid [x]Normal []Enlarged []Tender []Mass []Absent Respiratory: Respiratory effort []Labored [x]Non-Labored [] Mechanically-Ventilated Auscultation [x]Clear []Crackles []Wheezes [][place] Cardiovascular: Auscultation Rate: [x]Regular []Irregular []Tachycardia []Bradycardia Rhythm: [x]Regular []Irregular Murmur: []Present [x]Absent Extremities Peripheral Edema: []Present [x]Absent Varicosities: []Present [x]Absent Gastrointestinal: Abdomen Palpation: [x]Soft []Firm []Tender [x]Non-Tender []Distended [x]Non-distended Mass: []Present [x]Absent Bowel Sounds: [x]Present []Absent Hernia: []Present [x]Absent Liver/Spleen: []Hepatosplenomegaly [x]Organomegaly Absent Musculoskeletal: Inspection of Digits and Nails Cyanosis: []Present [x]Absent Clubbing: []Present [x]Absent Ischemia: []Present [x]Absent Infection: []Present [x]Absent Extremities ANDERSON Equally: Except ([]RUE []RLE []LUE []LLE) Strength/Tone: Intact and Normal ([]RUE []RLE []LUE []LLE) Skin: Inspection [x]Normal []Rash []Lesion []Ulcer Palpation [x]Warm []Cool [x]Dry []Clammy []Nodules []Induration []Skin-tightening Cap-Refill: [x] <3 sec [] >3 seconds (delayed) Neurologic: GCS EYE: 4 - Opens spontaneously GCS MOTOR: 6 - Obeys commands for movement GCS VERBAL: 5 - Oriented to person, place, time Total GCS: 15 [x] Sensation grossly intact Psych: Mental Status Alert: [x]Yes [] No Oriented: []x0 []X1 []X2 [x]x3 Mood/Affect [x]Normal []Flat []Agitated []Depressed []Anxious []Calm []Sedated []NAD [facility] within last 24 hours- BMP: Recent Labs 01/19/24 1747 NA 135 K 4.9 CL 92* CO2 30 BUN 47* CREATININE 7.70* CALCIUM 8.7 LFTs: Recent Labs 01/19/24 1747 AST 23 ALT 14 PROT 7.0 ALBUMIN 4.0 BILITOT 0.5 ALKPHOS 88 Glucose: Recent Labs 01/19/24 1747 GLUCOSE 146* Procal: No results for input(s): PROCAL in the last 72 hours. CBC: Recent Labs 01/19/241746 WBC 15.9* HGB 7.7* HCT 24.4* PLT 465* MCV 93.5 RDW 16.7* ABGs: No results for input(s): PHART, WBA4YNP, PO2ART, OST9AZB, SO2ART, F8YEZDRO in the last 72 hours. Lactic Acid: No results for input(s): LACTATE in the last 72 hours. INR: Recent Labs 01/19/24 1758 INR 1.0 Cardiac Injury Profile: Recent Labs 01/19/241746 TROPONINI <0.012 Labs in Last 3 months: Lab Results Component Value Date TSH 2.317 02/22/2022 INR 1.0 01/19/2024 Microbiology- Urine Cx: No results found for: URINECX Blood Cx: No results found for: BLOODCX Sputum Cx: No results found for: RESPCULT Gram Stain: No results found for: LABGRAM PNA PCR: No results found for: HUMANMETAPNE COVID19: No results found for: COVID19 Legionella Ag: No results found for: LEGIONELLAPN Strep Ag: No results for input(s): STREPPNEUMO in the last 72 hours. Imaging- CTA abdomen pelvis angio, 01/18 IMPRESSION: Descending colon active bleeding. An element of diverticulitis possible. DTR Dr Kaur Assessment and Plan: Principal Problem: Gastrointestinal hemorrhage, unspecified gastrointestinal hemorrhage type Assessment: Acute blood loss anemia 2/2 descending colonic bleed Acute descending colonic bleed ESRD, on HD (//) Hx HTN Presyncope 2/2 blood loss anemia vs vasovagal episode Hx Seizures; not on home antiepileptic medication Plan: Admit to T1 for further monitoring Recent CTA notable for descending colonic bleed though spontaneously soft en route to IR - not amenable to embolization Per IR's recommendations, will retain arterial sheath for 24 hours and consider removing if no concern for re-bleed. If develops recurrent GI bleeding, continued abrupt drop in Hgb or hemodynamic instability, will proceed with repeat STAT CTA and IR consideration Continue to closely monitor hemodynamics; remains stable at this time S/p x2 pRBC with improvement in Hgb; pt now asymptomatic Continue to monitor on telemetry Strict bed rest H&H Q6H Checking L upper extremity X-ray; low concern for fx though with continued pain. No visible deformities Pt reports that she has not been on her home Keppra for approximately 1 year per her PCPs recommendations; as such, holding and will likely discontinue altogether as her hx of seizure occurred while hospitalized and has had none since. GI Prophylaxis: Pantoprazole IV DVT Prophylaxis: SCDs BMI Classification: Body mass index is 19.05 kg/m . normal BMI 18.5-24.9 Disposition: Remain in ICU Status Cosigned by Gabriel Delgado MD at 01/20/2024 2:48 AM EDT Associated attestation - Gabriel Delgado MD - 01/20/2024 2:48 AM EDT I have personally seen the patient and examined along with the CRISTO/resident team. I personally obtained the saavedra and relevent portions of the history and performed physical exam. I reviewed the chart including MAR , labs and radiology and discussed the patient's plan of action with the resident/CRISTO. This note reflects my plan of care as I have edited the note to reflect my findings and my assessment and plan. Date of service: 01/20/24 Discussed with: [x]Residents [x]Patient/Family [x]RN [x]Consultants []SW/TCC []Other []CRISTO Personally Reviewed: [x]Epic notes [x]Radiology studies [x]Labs []EKG []Other In addition to resident/CRISTO documentation pertinent History, ROS, and/or Physical Exam findings include: 73 year-old female with PMH significant for ESRD on iHD, HTN who presented to [facility] ED with complaints of BRBPR. She was found to have active bleeding in the descending colon on CTA and was taken to IR. IR was unable to complete embolization due to no active bleeding so they left sheath in femoral artery in case of recurrent bleeding. Due to sheath being left in place patient was admitted to ICU. Patient has received two units of PRBCs prior to arrival to unit. She has remained HDS. Assessment: -Acute lower GI bleeding -ABLA -ESRD on iHD -HTN -Hx seizures -Syncope Plan: -Admit to ICU -Continue q6h CBC -Keep NPO -Will plan for repeat attempt at embolization if rebleeding or hemodynamic instability. -Remainder as per resident documentation ICU Checklist: DVT prophylaxis: SCDs GI prophylaxis: PPI Bowel Regimen: prn miralax Glycemic control: SSI Lines/Devices/Tubes w/ dates: right femoral sheath, PIV GOC/Family Discussions: Full Code Excluding procedures, the total critical care time invested in the care of this patient with life threatening/unstable organ failure today is at least 35 minutes. This includes direct patient contact, review of medical record, management of life support systems, review of data including imaging and labs, discussions with other team members, patient's family and physicians. [facility] Work Phone: 01-19-2024 Nurse Note Patient tolerated the procedure well. Transfer to T126 following the procedure. [facility] 01-19-2024 History and physical note Attending History and Physical Admit Date: 01/19/2024 PCP: Christiano Grove DO CHIEF COMPLAINT: blood in stool Reason for Admission: Acute blood loss anemia History Obtained From: patient HISTORY OF PRESENT ILLNESS: Apoorva is a 73 y.o. female with past medical history below who presents with chief complaint listed above. Patient has a hx of ESRD on HD TTS. She developed over 10 episodes of bright red and dark bloody stools today, so she came into the ED for further evaluation. She presented to the ED with a heart rate in the low 100s, blood pressures stable with systolics 120-140, labs notable for hemoglobin of 7.7 on her CBC, and CTA abdomen pelvis angiogram showed descending colon active bleeding. IR was consulted in the ED and the patient was planned for immediate intervention by interventional radiology CT angio positive for descending colon bleed and IR agreed to take pt for intervention. Patient was being prepared for transport during my admission exam. Will admit for further evaluation and management. Past Medical History: Past Medical History: Diagnosis Date Chronic kidney disease (CKD) Hemodialysis patient (CMS/HCC) (HCC) Wednesday, , Wednesday History of blood transfusion 02/27/2022 Hypertension Seizure (HCC) Developed seizure-like activity on 02/24 during hospital admission Past Surgical History: Past Surgical History: Procedure Laterality Date AV FISTULA PLACEMENT Left 08/07/2022 IR CVC TUNNELED DIALYSIS CATHETER PLACEMENT 02/27/2022 IR CVC TUNNELED CATHETER PLACEMENT 02/27/2022 Candis Andrade MD [facility] SPECIAL PROCEDURES Social History: Social History Socioeconomic History Marital status: Spouse name: Not on file Number of children: Not on file Years of education: Not on file Highest education level: Not on file Occupational History Not on file Tobacco Use Smoking status: Never Smokeless tobacco: Never Vaping Use Vaping status: Never Used Substance and Sexual Activity Alcohol use: Yes Alcohol/week: 2.0 standard drinks of alcohol Types: 2 Glasses of wine per week Comment: weekly Drug use: Never Sexual activity: Not on file Other Topics Concern Not on file Social History Narrative Not on file Social Determinants of Health Financial Resource Strain: Not on file Food Insecurity: Not on file Transportation Needs: No Transportation Needs (02/22/2022) PRAPARE - Transportation Lack of Transportation (Medical): No Lack of Transportation (Non-Medical): No Physical Activity: Not on file Stress: Not on file Social Connections: Not on file Intimate Partner Violence: Not At Risk (08/07/2022) Humiliation, Afraid, Rape, and Kick questionnaire Fear of Current or Ex-Partner: No Emotionally Abused: No Physically Abused: No Sexually Abused: No Housing Stability: Not on file Family History: Family History Problem Relation Name Age of Onset Dementia Mother Stroke Father Breast cancer Cousin Medications Prior to Admission: No current facility-administered medications on file prior to encounter. Current Outpatient Medications on File Prior to Encounter Medication Sig Dispense Refill amLODIPine (Norvasc) 5 MG tablet Take 1 tablet (5 mg) by mouth daily. (Patient taking differently: Take 10 mg by mouth daily.) 30 tablet 11 atorvastatin (Lipitor) 40 MG tablet Take 1 tablet (40 mg) by mouth Nightly. 30 tablet 11 calcium acetate (Phoslo) 667 MG tablet Take 1 tablet by mouth in the morning and 1 tablet at noon and 1 tablet in the evening. Take with meals. cholecalciferol (Vitamin D-3) 125 MCG (5000 UT) capsule Take 5,000 Units by mouth daily. levETIRAcetam (Keppra) 500 MG tablet Take 1 tablet (500 mg) by mouth daily. 30 tablet 1 omega-3 (Fish Oil) 1000 MG capsule Take 1,000 mg by mouth daily. Thiamine HCl (vitamin B-1) 250 MG tablet Take 250 mg by mouth daily. VITAMIN E PO Take by mouth daily. Allergies: No Known Allergies REVIEW OF SYSTEMS: Constitutional: Negative for fever, chills, activity change and unexpected weight change. HEENT: Negative for congestion, postnasal drip and sneezing. Eyes: Negative for itching and visual disturbance. Respiratory: Negative for apnea, cough, choking, chest tightness, shortness of breath, wheezing and stridor. Cardiovascular: Negative for chest pain. Gastrointestinal: Negative for nausea, vomiting, abdominal pain, diarrhea and blood in stool. Genitourinary: Negative for dysuria, frequency and flank pain. Musculoskeletal: Negative for myalgias and joint swelling. Skin: Negative for rash. Neurological: Negative for dizziness, tremors, seizures, syncope, facial asymmetry, speech difficulty, weakness, numbness and headaches. Hematological: Negative for adenopathy. Psychiatric/Behavioral: Negative for suicidal ideas, behavioral problems, self-injury and dysphoric mood. Vitals: BP (!) 149/76 Pulse 96 Temp 37.2 C (98.9 F) Resp 13 Ht 5' 4 (1.626 m) Wt 111 lb (50.3 kg) SpO2 100% BMI 19.05 kg/m BMI Classification: Normal Weight (BMI 18.5-24.9) Pulse Ox: SpO2 Av % Min: 100 % Max: 100 % Supplemental O2: PHYSICAL EXAM: Physical Exam Vitals reviewed. Constitutional: General: She is not in acute distress. Appearance: Normal appearance. She is not ill-appearing. HENT: Head: Normocephalic and atraumatic. Right Ear: External ear normal. Left Ear: External ear normal. Nose: Nose normal. Mouth/Throat: Mouth: Mucous membranes are moist. Pharynx: Oropharynx is clear. Eyes: General: Right eye: No discharge. Left eye: No discharge. Pupils: Pupils are equal, round, and reactive to light. Cardiovascular: Rate and Rhythm: Normal rate. Pulses: Normal pulses. Pulmonary: Effort: Pulmonary effort is normal. No respiratory distress. Abdominal: General: Bowel sounds are normal. Palpations: Abdomen is soft. Musculoskeletal: General: No deformity. Normal range of motion. Cervical back: Normal range of motion and neck supple. No rigidity. Skin: General: Skin is warm and dry. Neurological: General: No focal deficit present. Mental Status: She is alert. Psychiatric: Mood and Affect: Mood normal. Behavior: Behavior normal. DATA: CBC: Recent Labs 01/19/24 174 WBC 15.9* RBC 2.61* HGB 7.7* HCT 24.4* MCV 93.5 RDW 16.7* PLT 465* BMP: Recent Labs 01/19/24 174 NA 135 K 4.9 CL 92* CO2 30 BUN 47* CREATININE 7.70* GLUCOSE 146* CALCIUM 8.7 ANIONGAP 13 LIVER PROFILE: Recent Labs 01/19/24 1747 AST 23 ALT 14 BILITOT 0.5 ALKPHOS 88 PROT 7.0 PT/INR: Recent Labs 01/19/24 1758 PROTIME 11.0 INR 1.0 CARDIAC ENZYMES: Recent Labs 01/19/24 174 TROPONINI <0.012 Procalcitonin: No results found for: PROCAL Urine Culture: No results found for this or any previous visit. COVID-19 PCR: No results for input(s): COVID19 in the last 72 hours. I reviewed: [x] laboratory results [x] radiographic results At the time of today's encounter. Pt was advised of the results. Data: (CAT3) Discussed with ED provider, Dr. Kaur, regarding patient's eval & mgmt thus far, and agree with the plan for hospitalization. (LOW: 2x CAT1 or independent historian MOD: 3x CAT1 or 1x CAT3 EXTENSIVE: 3x CAT1 and 1x CAT3) Assessment Discussed management with the ED provider and agree with hospitalization. Acute, acute on chronic, unstable/uncontrolled chronic problems/diagnoses: Acute blood loss anemia Stable chronic problems affecting care, new non-acute diagnoses: Plan As a result of the above findings & factors, the following mgmt was pursued: Acute blood loss anemia - presented with 1 day of BRBPR and melena in stools, Hgb 7.7 on arrival with large volume blood in stools seen in ED which also was followed by a syncopal episode in the ED likely as a result. - transfusions started in ED, and being taken for procedure by IR ESRD - on HD TTS, no missed sessions. Will consult nephro in AM to follow for HD as needed while inpatient. - am labs, replace lytes prn - PT/OT/CM/SW - delirium precautions: increase activity - DVT prophylaxis: encourage ambulation Complexity: Acute illness or injury posing a threat to life or body function (HIGH). Risk: Admission to hospital-level care was considered or occurred (HIGH). Advance Directive: Prior Anticipated Discharge - Date - 01/21/24 - Location - Home - Pending the following - hemoglobin and hemodynamic stability Total time spent (which include face to face and non face to face encounters) : 79 minutes. Extended Emergency Contact Information Primary Emergency Contact: Mayur Matthews Mobile Relation: Grandchild Jessica Murphy DO Division of Hospitalist Medicine Inpatient Medical Services/[facility] [employer] Phone: 01-19-2024 History and physical note Attending History and Physical Admit Date: 01/19/2024 PCP: Christiano Grove DO CHIEF COMPLAINT: blood in stool Reason for Admission: Acute blood loss anemia History Obtained From: patient HISTORY OF PRESENT ILLNESS: Apoorva is a 73 y.o. female with past medical history below who presents with chief complaint listed above. Patient has a hx of ESRD on HD TTS. She developed over 10 episodes of bright red and dark bloody stools today, so she came into the ED for further evaluation. She presented to the ED with a heart rate in the low 100s, blood pressures stable with systolics 120-140, labs notable for hemoglobin of 7.7 on her CBC, and CTA abdomen pelvis angiogram showed descending colon active bleeding. IR was consulted in the ED and the patient was planned for immediate intervention by interventional radiology CT angio positive for descending colon bleed and IR agreed to take pt for intervention. Patient was being prepared for transport during my admission exam. Will admit for further evaluation and management. Past Medical History: Past Medical History: Diagnosis Date Chronic kidney disease (CKD) Hemodialysis patient (CMS/HCC) (HCC) Wednesday, , Wednesday History of blood transfusion 02/27/2022 Hypertension Seizure (HCC) Developed seizure-like activity on 02/24 during hospital admission Past Surgical History: Past Surgical History: Procedure Laterality Date AV FISTULA PLACEMENT Left 08/07/2022 IR CVC TUNNELED DIALYSIS CATHETER PLACEMENT 02/27/2022 IR CVC TUNNELED CATHETER PLACEMENT 02/27/2022 Candis Andrade MD [facility] SPECIAL PROCEDURES Social History: Social History Socioeconomic History Marital status: Spouse name: Not on file Number of children: Not on file Years of education: Not on file Highest education level: Not on file Occupational History Not on file Tobacco Use Smoking status: Never Smokeless tobacco: Never Vaping Use Vaping status: Never Used Substance and Sexual Activity Alcohol use: Yes Alcohol/week: 2.0 standard drinks of alcohol Types: 2 Glasses of wine per week Comment: weekly Drug use: Never Sexual activity: Not on file Other Topics Concern Not on file Social History Narrative Not on file Social Determinants of Health Financial Resource Strain: Not on file Food Insecurity: Not on file Transportation Needs: No Transportation Needs (02/22/2022) PRAPARE - Transportation Lack of Transportation (Medical): No Lack of Transportation (Non-Medical): No Physical Activity: Not on file Stress: Not on file Social Connections: Not on file Intimate Partner Violence: Not At Risk (08/07/2022) Humiliation, Afraid, Rape, and Kick questionnaire Fear of Current or Ex-Partner: No Emotionally Abused: No Physically Abused: No Sexually Abused: No Housing Stability: Not on file Family History: Family History Problem Relation Name Age of Onset Dementia Mother Stroke Father Breast cancer Cousin Medications Prior to Admission: No current facility-administered medications on file prior to encounter. Current Outpatient Medications on File Prior to Encounter Medication Sig Dispense Refill amLODIPine (Norvasc) 5 MG tablet Take 1 tablet (5 mg) by mouth daily. (Patient taking differently: Take 10 mg by mouth daily.) 30 tablet 11 atorvastatin (Lipitor) 40 MG tablet Take 1 tablet (40 mg) by mouth Nightly. 30 tablet 11 calcium acetate (Phoslo) 667 MG tablet Take 1 tablet by mouth in the morning and 1 tablet at noon and 1 tablet in the evening. Take with meals. cholecalciferol (Vitamin D-3) 125 MCG (5000 UT) capsule Take 5,000 Units by mouth daily. levETIRAcetam (Keppra) 500 MG tablet Take 1 tablet (500 mg) by mouth daily. 30 tablet 1 omega-3 (Fish Oil) 1000 MG capsule Take 1,000 mg by mouth daily. Thiamine HCl (vitamin B-1) 250 MG tablet Take 250 mg by mouth daily. VITAMIN E PO Take by mouth daily. Allergies: No Known Allergies REVIEW OF SYSTEMS: Constitutional: Negative for fever, chills, activity change and unexpected weight change. HEENT: Negative for congestion, postnasal drip and sneezing. Eyes: Negative for itching and visual disturbance. Respiratory: Negative for apnea, cough, choking, chest tightness, shortness of breath, wheezing and stridor. Cardiovascular: Negative for chest pain. Gastrointestinal: Negative for nausea, vomiting, abdominal pain, diarrhea and blood in stool. Genitourinary: Negative for dysuria, frequency and flank pain. Musculoskeletal: Negative for myalgias and joint swelling. Skin: Negative for rash. Neurological: Negative for dizziness, tremors, seizures, syncope, facial asymmetry, speech difficulty, weakness, numbness and headaches. Hematological: Negative for adenopathy. Psychiatric/Behavioral: Negative for suicidal ideas, behavioral problems, self-injury and dysphoric mood. Vitals: BP (!) 149/76 Pulse 96 Temp 37.2 C (98.9 F) Resp 13 Ht 5' 4 (1.626 m) Wt 111 lb (50.3 kg) SpO2 100% BMI 19.05 kg/m BMI Classification: Normal Weight (BMI 18.5-24.9) Pulse Ox: SpO2 Av % Min: 100 % Max: 100 % Supplemental O2: PHYSICAL EXAM: Physical Exam Vitals reviewed. Constitutional: General: She is not in acute distress. Appearance: Normal appearance. She is not ill-appearing. HENT: Head: Normocephalic and atraumatic. Right Ear: External ear normal. Left Ear: External ear normal. Nose: Nose normal. Mouth/Throat: Mouth: Mucous membranes are moist. Pharynx: Oropharynx is clear. Eyes: General: Right eye: No discharge. Left eye: No discharge. Pupils: Pupils are equal, round, and reactive to light. Cardiovascular: Rate and Rhythm: Normal rate. Pulses: Normal pulses. Pulmonary: Effort: Pulmonary effort is normal. No respiratory distress. Abdominal: General: Bowel sounds are normal. Palpations: Abdomen is soft. Musculoskeletal: General: No deformity. Normal range of motion. Cervical back: Normal range of motion and neck supple. No rigidity. Skin: General: Skin is warm and dry. Neurological: General: No focal deficit present. Mental Status: She is alert. Psychiatric: Mood and Affect: Mood normal. Behavior: Behavior normal. DATA: CBC: Recent Labs 01/19/241746 WBC 15.9* RBC 2.61* HGB 7.7* HCT 24.4* MCV 93.5 RDW 16.7* PLT 465* BMP: Recent Labs 01/19/24 174 NA 135 K 4.9 CL 92* CO2 30 BUN 47* CREATININE 7.70* GLUCOSE 146* CALCIUM 8.7 ANIONGAP 13 LIVER PROFILE: Recent Labs 01/19/24 1747 AST 23 ALT 14 BILITOT 0.5 ALKPHOS 88 PROT 7.0 PT/INR: Recent Labs 01/19/24 1758 PROTIME 11.0 INR 1.0 CARDIAC ENZYMES: Recent Labs 01/19/241746 TROPONINI <0.012 Procalcitonin: No results found for: PROCAL Urine Culture: No results found for this or any previous visit. COVID-19 PCR: No results for input(s): COVID19 in the last 72 hours. I reviewed: [x] laboratory results [x] radiographic results At the time of today's encounter. Pt was advised of the results. Data: (CAT3) Discussed with ED provider, Dr. Kaur, regarding patient's eval & mgmt thus far, and agree with the plan for hospitalization. (LOW: 2x CAT1 or independent historian MOD: 3x CAT1 or 1x CAT3 EXTENSIVE: 3x CAT1 and 1x CAT3) Assessment Discussed management with the ED provider and agree with hospitalization. Acute, acute on chronic, unstable/uncontrolled chronic problems/diagnoses: Acute blood loss anemia Stable chronic problems affecting care, new non-acute diagnoses: Plan As a result of the above findings & factors, the following mgmt was pursued: Acute blood loss anemia - presented with 1 day of BRBPR and melena in stools, Hgb 7.7 on arrival with large volume blood in stools seen in ED which also was followed by a syncopal episode in the ED likely as a result. - transfusions started in ED, and being taken for procedure by IR ESRD - on HD TTS, no missed sessions. Will consult nephro in AM to follow for HD as needed while inpatient. - am labs, replace lytes prn - PT/OT/CM/SW - delirium precautions: increase activity - DVT prophylaxis: encourage ambulation Complexity: Acute illness or injury posing a threat to life or body function (HIGH). Risk: Admission to hospital-level care was considered or occurred (HIGH). Advance Directive: Prior Anticipated Discharge - Date - 01/21/24 - Location - Home - Pending the following - hemoglobin and hemodynamic stability Total time spent (which include face to face and non face to face encounters) : 79 minutes. Extended Emergency Contact Information Primary Emergency Contact: Mayur Matthews Mobile Relation: Grandchild Jessica Murphy DO Division of Hospitalist Medicine Inpatient Medical Services/[facility] [place] documented in this encounter [facility] 01-19-2024 Nurse Note Patient arrived from the emergency department for mesenteric angiogram with possible intervention. Dr. Whatleyu in to speak with the patient regarding the procedure, and consent was obtained. Patient's lab values and allergies were reviewed. Patient was placed supine on exam table, prepped and draped in sterile fashion. Telemetry monitors were placed. [facility] 01-19-2024 Emergency department Note Patient in no apparent distress. Respirations equal and nonlabored. Lala Ni RN 01/19/24 1782 [facility] 01-19-2024 Emergency department Note Patient in no apparent distress. Respirations equal and nonlabored. Lala Ni RN 01/19/242215 Patient in IR at this time. Lala Ni RN 01/19/242209 Patients 15 minute samra for vitals not documented as patient was being transported to IR. Lala Ni RN 01/19/242209 Second unit of blood started at 600 mLs/hr per Dr Kaur. Pt being transported to IR by CYNTHIA Reeves. Olivia Rodgers RN 01/19/242150 Dr Kaur called IR to do procedure. Blood transfusion going at 300 mLs an hour per Dr Kaur. Pt changed up again and large clots and blood noted. Olivia Rodgers RN 01/19/242126 Report to Olivia Camejo RN 01/19/241923 Pt taken to CT scan. Dr Kaur made aware pt had another large passing of blood clots. Order to be received for blood tranfusion Tameka Camejo RN 01/19/241904 Trauma float at bedside for ultrasound IV Tameka Camejo RN 01/19/24 1808 Large clots noted from pts rectum. States she has been bleeding and having clots since this morning. Denies being on a blood thinner. Does not have any abd pain but has pressure when having a bowel movement. Provider called to bedside for assessment Tameka Camejo RN 01/19/24 1740 Patient was in the waiting room walking to the bathroom and fell forward from a standing position, another patient yelled for staff and RN's came to assist. C-collar applied. Patient was awake and alert, bleeding noted from her pants she states she had some rectal bleeding. No obvious head or face injury, no c-spine tenderness. Patient taken to room 7 after being assisted into a cot. ED provider notified Tyra Garcia RN 01/19/24 4578 EMERGENCY DEPARTMENT ENCOUNTER Pt Name: Apoorva Gonzalez Birthdate 1950 Date of evaluation: 01/19/2024 ED Provider: Brown Kaur DO CHIEF COMPLAINT Chief Complaint Patient presents with Rectal Bleeding Pt presents to ED for rectal bleeding. Pt reports onset today. Pt reports dark and bright red blood in stool. Pt reports severe abdominal cramping right before a bowel movement. HISTORY OF PRESENT ILLNESS (Location/Symptom, Timing/Onset, Context/Setting, Quality, Duration, Modifying Factors, Severity) Note limiting factors. I wore appropriate PPE for the entirety of this encounter. HPI Apoorva Gonzalez is a 73 y.o. who presents to the emergency department with chief complaint of rectal bleeding. Patient states she had a few episodes since yesterday but today she has had greater than 10 episodes of bright red blood per rectum. While in the emergency department she had a syncopal episode. She endorses lower left abdominal pain. She is not anticoagulated. No prior history of GI bleeding or colonoscopies. Of note has history of dialysis with last session yesterday. Nursing Notes were reviewed. Limitations to history: None Outside historians: None REVIEW OF SYSTEMS Review of Systems Pertinent positives and negatives as per HPI. PAST MEDICAL HISTORY Past Medical History: Diagnosis Date Chronic kidney disease (CKD) Hemodialysis patient ([facility]/HCC) (HCC) Wednesday, , Wednesday History of blood transfusion 02/27/2022 Hypertension Seizure (HCC) Developed seizure-like activity on 02/24 during hospital admission SURGICAL HISTORY Past Surgical History: Procedure Laterality Date AV FISTULA PLACEMENT Left 08/07/2022 IR CVC TUNNELED DIALYSIS CATHETER PLACEMENT 02/27/2022 IR CVC TUNNELED CATHETER PLACEMENT 02/27/2022 Candis Andrade MD [facility] SPECIAL PROCEDURES CURRENT MEDICATIONS Previous Medications AMLODIPINE (NORVASC) 5 MG TABLET Take 1 tablet (5 mg) by mouth daily. ATORVASTATIN (LIPITOR) 40 MG TABLET Take 1 tablet (40 mg) by mouth Nightly. CALCIUM ACETATE (PHOSLO) 667 MG TABLET Take 1 tablet by mouth in the morning and 1 tablet at noon and 1 tablet in the evening. Take with meals. CHOLECALCIFEROL (VITAMIN D-3) 125 MCG (5000 UT) CAPSULE Take 5,000 Units by mouth daily. LEVETIRACETAM (KEPPRA) 500 MG TABLET Take 1 tablet (500 mg) by mouth daily. OMEGA-3 (FISH OIL) 1000 MG CAPSULE Take 1,000 mg by mouth daily. THIAMINE HCL (VITAMIN B-1) 250 MG TABLET Take 250 mg by mouth daily. VITAMIN E PO Take by mouth daily. ALLERGIES Patient has no known allergies. FAMILY HISTORY Family History Problem Relation Name Age of Onset Dementia Mother Stroke Father Breast cancer Cousin SOCIAL HISTORY Social History Socioeconomic History Marital status: Tobacco Use Smoking status: Never Smokeless tobacco: Never Vaping Use Vaping status: Never Used Substance and Sexual Activity Alcohol use: Yes Alcohol/week: 2.0 standard drinks of alcohol Types: 2 Glasses of wine per week Comment: weekly Drug use: Never Social Determinants of Health Transportation Needs: No Transportation Needs (02/22/2022) PRAPARE - Transportation Lack of Transportation (Medical): No Lack of Transportation (Non-Medical): No Intimate Partner Violence: Not At Risk (08/07/2022) Humiliation, Afraid, Rape, and Kick questionnaire Fear of Current or Ex-Partner: No Emotionally Abused: No Physically Abused: No Sexually Abused: No SCREENINGS [place] Coma Scale Best Eye Response: Spontaneous Best Verbal Response: Oriented Best Motor Response: Follows commands [place] Coma Scale Score: 15 PHYSICAL EXAM ED Triage Vitals Temp Heart Rate Resp BP 01/19/24 1708 01/19/24 1708 01/19/24 1708 01/19/24 1708 36.9 C (98.4 F) 101 16 128/68 SpO2 Temp Source Heart Rate Source Patient Position 01/19/24 1708 01/19/24 1708 01/19/24 1708 01/19/24 1750 100 % Temporal Monitor Lying BP Location FiO2 (%) 01/19/24 1750 -- Left arm Physical Exam Vitals and nursing note reviewed. Constitutional: General: She is not in acute distress. Appearance: She is well-developed. She is not toxic-appearing. HENT: Head: Normocephalic and atraumatic. Nose: Nose normal. Eyes: Extraocular Movements: Extraocular movements intact. Comments: Conjunctiva pale Cardiovascular: Rate and Rhythm: Regular rhythm. Tachycardia present. Pulses: Normal pulses. Heart sounds: Normal heart sounds. Pulmonary: Effort: Pulmonary effort is normal. No respiratory distress. Breath sounds: Normal breath sounds. Abdominal: Palpations: Abdomen is soft. Tenderness: There is abdominal tenderness (LLQ). Musculoskeletal: General: Normal range of motion. Cervical back: Normal range of motion and neck supple. Right lower leg: No edema. Left lower leg: No edema. Skin: General: Skin is warm and dry. Capillary Refill: Capillary refill takes less than 2 seconds. Neurological: General: No focal deficit present. Mental Status: She is alert and oriented to person, place, and time. Mental status is at baseline. DIAGNOSTIC RESULTS Procedures/EKG: EKG was reviewed by myself. Physician EKG interpretation can be found in [facility] RADIOLOGY (Per Emergency Physician): Interpretation per the Radiologist below, if available at the time of this note: CTA abdomen pelvis angiogram w and/or wo IV contrast Final Result Descending colon active bleeding. An element of diverticulitis possible. DTR Dr Kaur Report Dictated on Electronically Signed By: Jacob Alcaraz MD Electronically Signed Date/Time: 01/19/2024 7:31 PM EDT IR angiogram mesentric (Results Pending) ED BEDSIDE ULTRASOUND: Performed by ED Physician - none LABS: Labs Reviewed CBC WITH AUTO DIFFERENTIAL - Abnormal Result Value Auto WBC 15.9 (*) RBC 2.61 (*) Hemoglobin 7.7 (*) Hematocrit 24.4 (*) MCV 93.5 MCH 29.5 MCHC 31.6 RDW 16.7 (*) Platelets 465 (*) MPV 10.7 nRBC 0.0 Neutrophils Relative 80.6 Lymphocytes Relative 11.1 (*) Monocytes Relative 6.9 Eosinophils Relative 0.4 Basophils Relative 0.6 Immature Grans % 0.4 Neutrophils Absolute 12.8 (*) Lymphocytes Absolute 1.8 Monocytes Absolute 1.1 (*) Eosinophils Absolute 0.1 Basophils Absolute 0.1 Immature Grans Absolute 0.1 (*) IPF 2 COMPREHENSIVE METABOLIC PANEL - Abnormal SODIUM 135 POTASSIUM 4.9 CHLORIDE 92 (*) CARBON DIOXIDE 30 ANION GAP 13 UREA NITROGEN 47 (*) CREATININE 7.70 (*) GLUCOSE 146 (*) CALCIUM 8.7 AST (SGOT) 23 ALT 14 ALKALINE PHOSPHATASE 88 ALBUMIN 4.0 BILIRUBIN, TOTAL 0.5 TOTAL PROTEIN 7.0 eGFR 5.1 (*) TROPONIN I - Normal TROPONIN I <0.012 Narrative: Patients with high levels of Biotin oral intake (ie >5 mg/day) may have falsely decreased Troponin levels. PROTIME & APTT - Normal PROTHROMBIN TIME 11.0 INR 1.0 APTT 22.2 BLOOD TYPE AND SCREEN GEL ABO Grouping O Antibody Screen NEG Rh Type POS HEMOGLOBIN AND HEMATOCRIT, BLOOD PREPARE RBC PRODUCT CODE C4188D54 Unit Number [id number] Unit ABO O Unit RH POS Crossmatch interpretation COMP Dispense Status Transfused Blood Expiration Date Product Blood Type 5100 Unit Volume 300 PRODUCT CODE [id number] Unit Number [id number] Unit ABO O Unit RH POS Crossmatch interpretation COMP Dispense Status Transfused Blood Expiration Date Product Blood Type 5100 Unit Volume 300 All other labs were within normal range or not returned as of this dictation. EMERGENCY DEPARTMENT COURSE and DIFFERENTIAL DIAGNOSIS/MDM: Vitals: Vitals: 01/19/24 2300 01/19/24 2305 10/16/230901/19/242314 BP: (!) 149/71 (!) 147/82 139/73 139/71 BP Location: Patient Position: Pulse: 99 95 95 95 Resp: 18 (!) 11 17 18 Temp: TempSrc: SpO2: 100% 100% 100% 100% Weight: Height: Diagnoses as of 01/19/242318 Gastrointestinal hemorrhage, unspecified gastrointestinal hemorrhage type The patient presented with chief complaint of rectal bleeding. The differential diagnosis associated with this patient's presentation includes GI bleed, diverticulosis, hemorrhoidal bleed. Our workup consisted of ordering/reviewing: labs and CTA. Patient is in agreement with this plan. Medications sodium chloride 0.9 % infusion (has no administration in time range) lidocaine PF (Xylocaine) 1 % injection (5 mL Infiltration Given 01/19/242222) iopamidol (Isovue-370) 76 % injection 75 mL (75 mL IntraVENous Given 01/19/241912) iopamidol (Isovue-300) 61 % injection 65 mL (65 mL Intra-arTERial Given 01/19/242316) REVAL: 73-year-old female presenting to the ED for bright red blood per rectum. She has had greater than 10 episodes today. In the emergency department she passed several episodes of huge bright red blood clots per rectum and had bleeding through the pads on the bed. She is mildly tachycardic but hemodynamically she is stable. Will obtain CT angio for concerns of GI bleeding. Initial hemoglobin is 7.7 but given her active bleeding we will transfuse [address] angio positive for descending colon bleed. Hemoglobin 7.7. Patient remaining hemodynamically stable on blood transfusion. Case discussed with interventional radiology, Dr. Andrade. Will take patient for IR intervention. Patient will be admitted to the ICU afterwards. CRITICAL CARE TIME Total Critical Care time was 35 minutes, excluding separately reportable procedures. There was a high probability of clinically significant/life threatening deterioration in the patient's condition which required my urgent intervention. CONSULTS: None PROCEDURES: Unless otherwise noted below, none Procedures Patients symptoms are consistent with sepsis, severe sepsis, or septic shock (If yes use .sepsiscoremeasure): FINAL IMPRESSION 1. Gastrointestinal hemorrhage, unspecified gastrointestinal hemorrhage type DISPOSITION Admit 01/19/2024 11:16:01 PM PATIENT REFERRED TO: No follow-up provider specified. DISCHARGE MEDICATIONS: New Prescriptions No medications on file (Comment: Please note this report has been produced using speech recognition software and may contain errors related to that system including errors in grammar, punctuation, and spelling, as well as words and phrases that may be inappropriate. If there are any questions or concerns please feel free to contact the dictating provider for clarification.) Brown Kaur DO (electronically signed) Emergency Medicine Provider Brown Kaur DO 01/19/242127 Brown Kaur DO 01/19/242318 documented in this encounter [facility] 01-19-2024 Emergency department Note Patient in IR at this time. Lala Ni RN 01/19/242209 [facility] 01-19-2024 Emergency department Note Patients 15 minute samra for vitals not documented as patient was being transported to IR. Lala Ni RN 01/19/242209 [facility] 01-19-2024 Emergency department Note Second unit of blood started at 600 mLs/hr per Dr Kaur. Pt being transported to IR by CYNTHIA Reeves. Olivia Rodgers RN 01/19/242150 [facility] 01-19-[address] Kaur called IR to do procedure. Blood transfusion going at 300 mLs an hour per Dr Kaur. Pt changed up again and large clots and blood noted. Olivia Rodgers RN 01/19/242126 [facility] 01-19-2024 Emergency department Note Report to Olivia Camejo RN 01/19/24 1924 [facility] 01-19-2024 Emergency department Note Pt taken to CT scan. Dr Kuar made aware pt had another large passing of blood clots. Order to be received for blood tranfusion Tameka Camejo RN 01/19/24 1905 [facility] 01-19-2024 Emergency department Note Trauma float at bedside for ultrasound IV Tameka Camejo RN 01/19/24 1808 [facility] 01-19-2024 Emergency department Note Large clots noted from pts rectum. States she has been bleeding and having clots since this morning. Denies being on a blood thinner. Does not have any abd pain but has pressure when having a bowel movement. Provider called to bedside for assessment Tameka Camejo RN 01/19/24 1740 T [facility] 01-19-2024 Emergency department Note Patient was in the waiting room walking to the bathroom and fell forward from a standing position, another patient yelled for staff and RN's came to assist. C-collar applied. Patient was awake and alert, bleeding noted from her pants she states she had some rectal bleeding. No obvious head or face injury, no c-spine tenderness. Patient taken to room 7 after being assisted into a cot. ED provider notified Tyra Garcia RN 01/19/24 7148 [facility] 01-19-2024 Physician Emergency department Note EMERGENCY DEPARTMENT ENCOUNTER Pt Name: Apoorva Gonzalez Birthdate 1950 Date of evaluation: 01/19/2024 ED Provider: Brown Kaur DO CHIEF COMPLAINT Chief Complaint Patient presents with Rectal Bleeding Pt presents to ED for rectal bleeding. Pt reports onset today. Pt reports dark and bright red blood in stool. Pt reports severe abdominal cramping right before a bowel movement. HISTORY OF PRESENT ILLNESS (Location/Symptom, Timing/Onset, Context/Setting, Quality, Duration, Modifying Factors, Severity) Note limiting factors. I wore appropriate PPE for the entirety of this encounter. HPI Apoorva Gonzalez is a 73 y.o. who presents to the emergency department with chief complaint of rectal bleeding. Patient states she had a few episodes since yesterday but today she has had greater than 10 episodes of bright red blood per rectum. While in the emergency department she had a syncopal episode. She endorses lower left abdominal pain. She is not anticoagulated. No prior history of GI bleeding or colonoscopies. Of note has history of dialysis with last session yesterday. Nursing Notes were reviewed. Limitations to history: None Outside historians: None REVIEW OF SYSTEMS Review of Systems Pertinent positives and negatives as per HPI. PAST MEDICAL HISTORY Past Medical History: Diagnosis Date Chronic kidney disease (CKD) Hemodialysis patient ([facility]) ([facility]) Wednesday, , Wednesday History of blood transfusion 02/27/2022 Hypertension Seizure ([facility]) Developed seizure-like activity on 02/24 during hospital admission SURGICAL HISTORY Past Surgical History: Procedure Laterality Date AV FISTULA PLACEMENT Left 08/07/2022 IR CVC TUNNELED DIALYSIS CATHETER PLACEMENT 02/27/2022 IR CVC TUNNELED CATHETER PLACEMENT 02/27/2022 Candis Andrade MD [facility] SPECIAL PROCEDURES CURRENT MEDICATIONS Previous Medications AMLODIPINE (NORVASC) 5 MG TABLET Take 1 tablet (5 mg) by mouth daily. ATORVASTATIN (LIPITOR) 40 MG TABLET Take 1 tablet (40 mg) by mouth Nightly. CALCIUM ACETATE (PHOSLO) 667 MG TABLET Take 1 tablet by mouth in the morning and 1 tablet at noon and 1 tablet in the evening. Take with meals. CHOLECALCIFEROL (VITAMIN D-3) 125 MCG (5000 UT) CAPSULE Take 5,000 Units by mouth daily. LEVETIRACETAM (KEPPRA) 500 MG TABLET Take 1 tablet (500 mg) by mouth daily. OMEGA-3 (FISH OIL) 1000 MG CAPSULE Take 1,000 mg by mouth daily. THIAMINE HCL (VITAMIN B-1) 250 MG TABLET Take 250 mg by mouth daily. VITAMIN E PO Take by mouth daily. ALLERGIES Patient has no known allergies. FAMILY HISTORY Family History Problem Relation Name Age of Onset Dementia Mother Stroke Father Breast cancer Cousin SOCIAL HISTORY Social History Socioeconomic History Marital status: Tobacco Use Smoking status: Never Smokeless tobacco: Never Vaping Use Vaping status: Never Used Substance and Sexual Activity Alcohol use: Yes Alcohol/week: 2.0 standard drinks of alcohol Types: 2 Glasses of wine per week Comment: weekly Drug use: Never Social Determinants of Health Transportation Needs: No Transportation Needs (02/22/2022) PRAPARE - Transportation Lack of Transportation (Medical): No Lack of Transportation (Non-Medical): No Intimate Partner Violence: Not At Risk (08/07/2022) Humiliation, Afraid, Rape, and Kick questionnaire Fear of Current or Ex-Partner: No Emotionally Abused: No Physically Abused: No Sexually Abused: No SCREENINGS [place] Coma Scale Best Eye Response: Spontaneous Best Verbal Response: Oriented Best Motor Response: Follows commands [place] Coma Scale Score: 15 PHYSICAL EXAM ED Triage Vitals Temp Heart Rate Resp BP 01/19/24 1708 01/19/24 1708 01/19/24 1708 01/19/24 1708 36.9 C (98.4 F) 101 16 128/68 SpO2 Temp Source Heart Rate Source Patient Position 01/19/24 1708 01/19/24 1708 01/19/24 1708 01/19/24 1750 100 % Temporal Monitor Lying BP Location FiO2 (%) 01/19/24 1750 -- Left arm Physical Exam Vitals and nursing note reviewed. Constitutional: General: She is not in acute distress. Appearance: She is well-developed. She is not toxic-appearing. HENT: Head: Normocephalic and atraumatic. Nose: Nose normal. Eyes: Extraocular Movements: Extraocular movements intact. Comments: Conjunctiva pale Cardiovascular: Rate and Rhythm: Regular rhythm. Tachycardia present. Pulses: Normal pulses. Heart sounds: Normal heart sounds. Pulmonary: Effort: Pulmonary effort is normal. No respiratory distress. Breath sounds: Normal breath sounds. Abdominal: Palpations: Abdomen is soft. Tenderness: There is abdominal tenderness (LLQ). Musculoskeletal: General: Normal range of motion. Cervical back: Normal range of motion and neck supple. Right lower leg: No edema. Left lower leg: No edema. Skin: General: Skin is warm and dry. Capillary Refill: Capillary refill takes less than 2 seconds. Neurological: General: No focal deficit present. Mental Status: She is alert and oriented to person, place, and time. Mental status is at baseline. DIAGNOSTIC RESULTS Procedures/EKG: EKG was reviewed by myself. Physician [facility] RAD[facility]OLOGY (Per Emergency Physician): Interpretation per the Radiologist below, if available at the time of this note: CTA abdomen pelvis angiogram w and/or wo IV contrast Final Result Descending colon active bleeding. An element of diverticulitis possible. DTR Dr Kaur Report Dictated on Electronically Signed By: Jacob Alcaraz MD Electronically Signed Date/Time: 01/19/2024 7:31 PM EDT IR angiogram mesentric (Results Pending) ED BEDSIDE ULTRASOUND: Performed by ED Physician - none LABS: Labs Reviewed CBC WITH AUTO DIFFERENTIAL - Abnormal Result Value Auto WBC 15.9 (*) RBC 2.61 (*) Hemoglobin 7.7 (*) Hematocrit 24.4 (*) MCV 93.5 MCH 29.5 MCHC 31.6 RDW 16.7 (*) Platelets 465 (*) MPV 10.7 nRBC 0.0 Neutrophils Relative 80.6 Lymphocytes Relative 11.1 (*) Monocytes Relative 6.9 Eosinophils Relative 0.4 Basophils Relative 0.6 Immature Grans % 0.4 Neutrophils Absolute 12.8 (*) Lymphocytes Absolute 1.8 Monocytes Absolute 1.1 (*) Eosinophils Absolute 0.1 Basophils Absolute 0.1 Immature Grans Absolute 0.1 (*) IPF 2 COMPREHENSIVE METABOLIC PANEL - Abnormal SODIUM 135 POTASSIUM 4.9 CHLORIDE 92 (*) CARBON DIOXIDE 30 ANION GAP 13 UREA NITROGEN 47 (*) CREATININE 7.70 (*) GLUCOSE 146 (*) CALCIUM 8.7 AST (SGOT) 23 ALT 14 ALKALINE PHOSPHATASE 88 ALBUMIN 4.0 BILIRUBIN, TOTAL 0.5 TOTAL PROTEIN 7.0 eGFR 5.1 (*) TROPONIN I - Normal TROPONIN I <0.012 Narrative: Patients with high levels of Biotin oral intake (ie >5 mg/day) may have falsely decreased Troponin levels. PROTIME & APTT - Normal PROTHROMBIN TIME 11.0 INR 1.0 APTT 22.2 BLOOD TYPE AND SCREEN GEL ABO Grouping O Antibody Screen NEG Rh Type POS HEMOGLOBIN AND HEMATOCRIT, BLOOD PREPARE RBC PRODUCT CODE [id number] Unit Number [id number] Unit ABO O Unit RH POS Crossmatch interpretation COMP Dispense Status Transfused Blood Expiration Date Product Blood Type 5100 Unit Volume 300 PRODUCT CODE [id number] Unit Number [id number] Unit ABO O Unit RH POS Crossmatch interpretation COMP Dispense Status Transfused Blood Expiration Date Product Blood Type 5100 Unit Volume 300 All other labs were within normal range or not returned as of this dictation. EMERGENCY DEPARTMENT COURSE and DIFFERENTIAL DIAGNOSIS/MDM: Vitals: Vitals: 01/19/24 2300 01/19/24230401/19/24230901/19/242314 BP: (!) 149/71 (!) 147/82 139/73 139/71 BP Location: Patient Position: Pulse: 99 95 95 95 Resp: 18 (!) 11 17 18 Temp: TempSrc: SpO2: 100% 100% 100% 100% Weight: Height: Diagnoses as of 01/19/242318 Gastrointestinal hemorrhage, unspecified gastrointestinal hemorrhage type The patient presented with chief complaint of rectal bleeding. The differential diagnosis associated with this patient's presentation includes GI bleed, diverticulosis, hemorrhoidal bleed. Our workup consisted of ordering/reviewing: labs and CTA. Patient is in agreement with this plan. Medications sodium chloride 0.9 % infusion (has no administration in time range) lidocaine PF (Xylocaine) 1 % injection (5 mL Infiltration Given 01/19/242222) iopamidol (Isovue-370) 76 % injection 75 mL (75 mL IntraVENous Given 01/19/241912) iopamidol (Isovue-300) 61 % injection 65 mL (65 mL Intra-arTERial Given 01/19/242316) REVAL: 73-year-old female presenting to the ED for bright red blood per rectum. She has had greater than 10 episodes today. In the emergency department she passed several episodes of huge bright red blood clots per rectum and had bleeding through the pads on the bed. She is mildly tachycardic but hemodynamically she is stable. Will obtain CT angio for concerns of GI bleeding. Initial hemoglobin is 7.7 but given her active bleeding we will transfuse [address] angio positive for descending colon bleed. Hemoglobin 7.7. Patient remaining hemodynamically stable on blood transfusion. Case discussed with interventional radiology, Dr. Andrade. Will take patient for IR intervention. Patient will be admitted to the ICU afterwards. CRITICAL CARE TIME Total Critical Care time was 35 minutes, excluding separately reportable procedures. There was a high probability of clinically significant/life threatening deterioration in the patient's condition which required my urgent intervention. CONSULTS: None PROCEDURES: Unless otherwise noted below, none Procedures Patients symptoms are consistent with sepsis, severe sepsis, or septic shock (If yes use .sepsiscoremeasure): FINAL IMPRESSION 1. Gastrointestinal hemorrhage, unspecified gastrointestinal hemorrhage type DISPOSITION Admit 01/19/2024 11:16:01 PM PATIENT REFERRED TO: No follow-up provider specified. DISCHARGE MEDICATIONS: New Prescriptions No medications on file (Comment: Please note this report has been produced using speech recognition software and may contain errors related to that system including errors in grammar, punctuation, and spelling, as well as words and phrases that may be inappropriate. If there are any questions or concerns please feel free to contact the dictating provider for clarification.) Brown Kaur DO (electronically signed) Emergency Medicine Provider Brown Kaur DO 01/19/242127 Brown Kaur DO 01/19/24 2319 [facility] 08-09-2023 Emergency department Note Pt remains in dialysis Regi Galdamez RN 08/09/23 1901 [facility] 08-09-2023 Emergency department Note Pt remains in dialysis Regi Galdamez RN 08/09/23 1901 Lab called with potassium 6.1 with no hemolysis, same reported to Dr. Velasquez via secure chat Jenn Adams RN 08/09/23 1650 Pt taken to dialysis Regi Galdamez RN 08/09/23 1638 documented in this encounter [facility] 08-09-2023 Nurse Note Patient Name: Apoorva Gonzalez Patient : 1950 Acct: [id number] Date of Admission: 08/09/2023 Room/Bed: Code Status: Prior Allergies: No Known Allergies Diagnosis: Patient Active Problem List Diagnosis Hypertensive emergency Treatment: Hemodilaysis 2:1 Priority: Routine Location: Acute Room Diabetic: No NPO: No Isolation Precautions: Dialysis Consent for Treatment Verified: Yes Blood Consent Verified: Not Applicable ICEBOAT: Identify, Consent, Equipment, HepB Status, Orders Complete, Timeliness, Access Verified (o2 and suction and functional @ bedside) Second Clinician Verifying: Vi Renteria Rn Time out performed prior to access at 2945. Report Received from Primary RN at 5490. Primary RN (First Initial, Last Name, Title): Keila Galdamez RN Incapacitated Nurse Education Completed: Not Applicable HBsAg ONLY: Date Drawn: March 25, 2023 Results: Negative HBsAb: Date Drawn: March 25, 2023 Results: Immune >10 Order Dialyzer: Revaclear 300 Na+ Modeling: Not Applicable Dialysate Temperature (C): 36 Blood Flow Rate (BFR): 350 Dialysate Flow Rate (DFR): 600 Access to be Utilized Access: AVG Location: Upper Extremity Side: Left Needle gauge: 16 + Bruit/Thrill: Yes First Use X-ray Verified: Not Applicable OK to use line order: Not Applicable Site Assessment: Signs and Symptoms of Infection/Inflammation: None If yes: Not Applicable Dressing: na Site Prep: Medical Aseptic Technique Dressing Changed this Treatment: na If yes, by whom: na Date of Last Dressing Change: na [address]?: na Red Alcohol Caps in place?: na Gauze Dressing?: na Non-Dialysis Use?: No Comment: Flows: Good If access problem, who was notified: Pre and Post-Assessment Patient Vitals for the past 8 hrs: Level of Consciousness Heart Rhythm 08/09/232001 Alert (0) Regular Labs Lab Results Component Value Date/Time WBC 8.6 03/03/2023938 HGB 10.6 (L) 03/03/2023938 HCT 32.3 (L) 03/03/2023938 PLT 351 03/03/2023938 NA 135 08/09/2023 1606 K 6.1 (HH) 08/09/2023 1606 CL 99 08/09/2023 1606 CO2 21 (L) 08/09/2023 1606 BUN 65 (H) 08/09/2023 1606 CREATININE 9.07 (H) 08/09/2023 1606 CALCIUM 9.5 08/09/2023 1606 PHOS 6.9 (H) 08/09/2023 1606 IV Drips and Rate/Dose Safety - Before each treatment: Dialysis Machine No.: [id number] Machine Number: [id number] Dialyzer Lot No.: [id number] Tubing Lot Number: [id number] All Connections Secure: Yes Venous Parameters Set: Yes Arterial Parameters Set: Yes NS Bag: Yes Saline Line Double Clamped: Yes Dialyzer: Revaclear 300 Prime Volume (mL): 200 mL RO Machine Number: [id number] RO Machine Log Sheet Completed: Yes Machine Alarm Self Test: Completed, Passed (08/09/231614) Air Foam Detector: Tested, Proper Function, pH Reading Extracorporeal Circuit Tested for Integrity: Yes Machine Conductivity: 13.6 Manual Conductivity: 13.6 Manual Ph: 7 Bleach Test (Neg): Yes Bath Temperature: 36 C (96.8 F) Conductivity Meter Serial #: [id number] Machine Functioning Alarm Free? Yes Dialysis Bath: K+ (Potassium): 2 Ca+ (Calcium): 2.5 Na+ (Sodium): 137 HCO3 (Bicarb): 32 Chlorine Testing - Before each treatment and every 4 hours: Time On: 1701 Time Off: 2001 Treatment Goal: 2L (per pt request, states she is only able to handle 2L fluid removal) Weight Height: 162.6 cm (5' 4) (08/09/23 154) Weight: 49.9 kg (110 lb) (08/09/231542) BMI (Calculated): 18.87 (08/09/231542) 1st check: less than 0.1 ppm at: 1445 2nd check: less than 0.1 ppm at: 1745 3rd check: Not Applicable (if greater than 0.1 ppm, then check every 30 minutes from secondary) Access Flows and Pressures Patient Vitals for the past 8 hrs: Blood Flow Rate (mL/min) Ultrafiltration Rate (ml/hr) Arterial Pressure (mmHg) Venous Pressure (mmHg) TMP DFR Access Visible Intra-Hemodialysis Comments 08/09/23 1645 -- -- -- -- -- -- Yes pt aware of call light within reach and educated on use of call light 08/09/23 1702 200 mL/min 1170 ml/hr -50 mmHg 120 mmHg 80 600 Yes tx iniated, lines secured, pt stable 08/09/23 1704 350 mL/min 1170 ml/hr -150 mmHg 240 mmHg 60 600 Yes bfr increased 08/09/23 1730 350 mL/min 830 ml/hr -190 mmHg 220 mmHg 60 600 Yes Pt stable rmvd 430 alert on phone. Goal reduced to 2 ltrs per brn. 08/09/23 1745 350 mL/min 830 ml/hr -230 mmHg 190 mmHg 60 600 Yes Pt stable rmvd 664 pt on phone,. 08/09/23 1800 350 mL/min 830 ml/hr -240 mmHg 210 mmHg 70 600 Yes Pt stable rmvd 821 resting watching tv. 08/09/23 1815 350 mL/min 830 ml/hr -240 mmHg 210 mmHg 70 600 Yes Pt stable r,mvd 1090 08/09/23 1833 350 mL/min 830 ml/hr -260 mmHg 210 mmHg 70 600 Yes Pt stable rmvd 1254 resting, on phone. 08/09/23 1845 350 mL/min 830 ml/hr -250 mmHg 210 mmHg 70 600 Yes Pt stable resting on phone. rmvd 1462 08/09/23 1901 350 mL/min 830 ml/hr -240 mmHg 220 mmHg 80 600 Yes Pt stable rmvd 1636 alert on phone. 08/09/23 1915 350 mL/min 830 ml/hr -230 mmHg 200 mmHg 80 600 Yes Pt stable rmvd 1818 pt. alert on phone. Lines secure. Stable. 08/09/23 1931 300 mL/min 830 ml/hr -270 mmHg 200 mmHg 80 600 Yes pt alert bp trending down rmvd 2031 uf off bfr 300 poor art flow. 08/09/23 1945 300 mL/min 830 ml/hr -200 mmHg 180 mmHg 60 600 Yes Pt alert stable. Pt on phone, rmvd 203108/09/232001 -- -- -- -- -- -- Yes tx complete, pt stable, 2031 removed Vital Signs Patient Vitals for the past 24 hrs: BP Temp Temp src Pulse Resp SpO2 Height Weight 08/09/232039 (!) 147/75 -- -- 82 18 100 % -- -- 08/09/232011 (!) 149/74 -- -- 86 -- -- -- -- 08/09/232001 (!) 140/67 36.4 C (97.6 F) -- 92 16 96 % -- -- 08/09/231944 121/69 -- -- 91 -- -- -- -- 08/09/23 1931 91/55 -- -- 86 -- -- -- -- 08/09/23 191 (!) 151/74 -- -- 90 -- -- -- -- 08/09/23 1901 138/78 -- -- 91 -- -- -- -- 08/09/23 1845 134/72 -- -- 98 -- -- -- -- 08/09/23 1833 (!) 152/77 -- -- 94 -- -- -- -- 08/09/23 1815 (!) 157/74 -- -- 93 -- -- -- -- 08/09/23 1800 (!) 145/70 -- -- 92 -- -- -- -- 08/09/23 1745 (!) 142/79 -- -- 97 -- -- -- -- 08/09/23 1730 (!) 147/74 -- -- 88 -- -- -- -- 08/09/23 1704 (!) 172/91 -- -- 100 -- -- -- -- 08/09/23 1702 (!) 157/84 -- -- 92 -- -- -- -- 08/09/23 1645 (!) 157/92 36.2 C (97.2 F) -- 91 16 95 % -- -- 08/09/23 1544 (!) 155/93 -- -- -- -- -- -- -- 08/09/23 1543 -- 36.7 C (98.1 F) Tympanic 93 16 98 % 1.626 m (5' 4) 49.9 kg (110 lb) Post-Dialysis Arterial Catheter Locking Solution: Not Applicable Venous Catheter Locking Solution: Not Applicable Post-Treatment Procedures: Blood returned, Access bleeding time < 10 minutes Machine Disinfection Process: Acid/Vinegar Clean, Heat Disinfect, Exterior Machine Disinfection Rinseback Volume (mL): 300 mL Total Liters Processed (L/min): 55.7 L/min Dialyzer Clearance: Lightly streaked Hemodialysis Intake (ml): 500 ml Hemodialysis Output (ml): 2032 ml NET Removed (ml): 1532 ml Tolerated Treatment: Good Interventions Taken: Ultrafiltration stopped Patient Response to Treatment: stable Physician Notified: No Patient Disposition: Return to room Charge: Provider Notification Handoff complete and report given to Primary RN at 2014. Primary RN (First Initial, Last Name, Title): Keila Galdamez RN Education Person Educated: Patient Knowledge Base: Minimal Barriers to Learning?: None Preferred method of Learning: Oral Topic(s): call light, Access Care, Signs and Symptoms of Infection, and Fluid Management Teaching Tools: Demonstration Response to Education: Verbalized Understanding [facility] 08-09-2023 Nurse Note Patient Name: Apoorva Gonzalez Patient : 1950 Acct: [id number] Date of Admission: 08/09/2023 Room/Bed: Code Status: Prior Allergies: No Known Allergies Diagnosis: Patient Active Problem List Diagnosis Hypertensive emergency Treatment: Hemodilaysis 2:1 Priority: Routine Location: Acute Room Diabetic: No NPO: No Isolation Precautions: Dialysis Consent for Treatment Verified: Yes Blood Consent Verified: Not Applicable ICEBOAT: Identify, Consent, Equipment, HepB Status, Orders Complete, Timeliness, Access Verified (o2 and suction and functional @ bedside) Second Clinician Verifying: Vi Renteria Rn Time out performed prior to access at 1655. Report Received from Primary RN at 1559. Primary RN (First Initial, Last Name, Title): Keila Galdamez RN Incapacitated Nurse Education Completed: Not Applicable HBsAg ONLY: Date Drawn: March 25, 2023 Results: Negative HBsAb: Date Drawn: March 25, 2023 Results: Immune >10 Order Dialyzer: Revaclear 300 Na+ Modeling: Not Applicable Dialysate Temperature (C): 36 Blood Flow Rate (BFR): 350 Dialysate Flow Rate (DFR): 600 Access to be Utilized Access: AVG Location: Upper Extremity Side: Left Needle gauge: 16 + Bruit/Thrill: Yes First Use X-ray Verified: Not Applicable OK to use line order: Not Applicable Site Assessment: Signs and Symptoms of Infection/Inflammation: None If yes: Not Applicable Dressing: na Site Prep: Medical Aseptic Technique Dressing Changed this Treatment: na If yes, by whom: na Date of Last Dressing Change: na na [address]?: na Red Alcohol Caps in place?: na Gauze Dressing?: na Non-Dialysis Use?: No Comment: Flows: Good If access problem, who was notified: Pre and Post-Assessment Patient Vitals for the past 8 hrs: Level of Consciousness Heart Rhythm 08/09/232001 Alert (0) Regular Labs Lab Results Component Value Date/Time WBC 8.6 03/03/2023 0939 HGB 10.6 (L) 03/03/2023 0939 HCT 32.3 (L) 03/03/2023 0939 PLT 351 03/03/2023 0939 NA 135 08/09/2023 1606 K 6.1 (HH) 08/09/2023 1606 CL 99 08/09/2023 1606 CO2 21 (L) 08/09/2023 1606 BUN 65 (H) 08/09/2023 1606 CREATININE 9.07 (H) 08/09/2023 1606 CALCIUM 9.5 08/09/2023 1606 PHOS 6.9 (H) 08/09/2023 1606 IV Drips and Rate/Dose Safety - Before each treatment: Dialysis Machine No.: [id number] RO Machine Number: [id number] Dialyzer Lot No.: [id number] Tubing Lot Number: [id number] All Connections Secure: Yes Venous Parameters Set: Yes Arterial Parameters Set: Yes NS Bag: Yes Saline Line Double Clamped: Yes Dialyzer: Revaclear 300 Prime Volume (mL): 200 mL RO Machine Number: [id number] RO Machine Log Sheet Completed: Yes Machine Alarm Self Test: Completed, Passed (08/09/231614) Air Foam Detector: Tested, Proper Function, pH Reading Extracorporeal Circuit Tested for Integrity: Yes Machine Conductivity: 13.6 Manual Conductivity: 13.6 Manual Ph: 7 Bleach Test (Neg): Yes Bath Temperature: 36 C (96.8 F) Conductivity Meter Serial #: [id number] Machine Functioning Alarm Free? Yes Dialysis Bath: K+ (Potassium): 2 Ca+ (Calcium): 2.5 Na+ (Sodium): 137 HCO3 (Bicarb): 32 Chlorine Testing - Before each treatment and every 4 hours: Time On: 1701 Time Off: 2001 Treatment Goal: 2L (per pt request, states she is only able to handle 2L fluid removal) Weight Height: 162.6 cm (5' 4) (08/09/23 154) Weight: 49.9 kg (110 lb) (08/09/23 154) BMI (Calculated): 18.87 (08/09/231542) 1st check: less than 0.1 ppm at: 1445 2nd check: less than 0.1 ppm at: 1745 3rd check: Not Applicable (if greater than 0.1 ppm, then check every 30 minutes from secondary) Access Flows and Pressures Patient Vitals for the past 8 hrs: Blood Flow Rate (mL/min) Ultrafiltration Rate (ml/hr) Arterial Pressure (mmHg) Venous Pressure (mmHg) TMP DFR Access Visible Intra-Hemodialysis Comments 08/09/23 1645 -- -- -- -- -- -- Yes pt aware of call light within reach and educated on use of call light 08/09/23 1702 200 mL/min 1170 ml/hr -50 mmHg 120 mmHg 80 600 Yes tx iniated, lines secured, pt stable 08/09/23 1704 350 mL/min 1170 ml/hr -150 mmHg 240 mmHg 60 600 Yes bfr increased 08/09/23 1730 350 mL/min 830 ml/hr -190 mmHg 220 mmHg 60 600 Yes Pt stable rmvd 430 alert on phone. Goal reduced to 2 ltrs per brn. 08/09/23 1745 350 mL/min 830 ml/hr -230 mmHg 190 mmHg 60 600 Yes Pt stable rmvd 664 pt on phone,. 08/09/23 1800 350 mL/min 830 ml/hr -240 mmHg 210 mmHg 70 600 Yes Pt stable rmvd 821 resting watching tv. 08/09/23 1815 350 mL/min 830 ml/hr -240 mmHg 210 mmHg 70 600 Yes Pt stable r,mvd 1090 08/09/23 1833 350 mL/min 830 ml/hr -260 mmHg 210 mmHg 70 600 Yes Pt stable rmvd 1254 resting, on phone. 08/09/23 1845 350 mL/min 830 ml/hr -250 mmHg 210 mmHg 70 600 Yes Pt stable resting on phone. rmvd 1462 08/09/23 1901 350 mL/min 830 ml/hr -240 mmHg 220 mmHg 80 600 Yes Pt stable rmvd 1636 alert on phone. 08/09/23 1915 350 mL/min 830 ml/hr -230 mmHg 200 mmHg 80 600 Yes Pt stable rmvd 1818 pt. alert on phone. Lines secure. Stable. 08/09/23 1931 300 mL/min 830 ml/hr -270 mmHg 200 mmHg 80 600 Yes pt alert bp trending down rmvd 2031 uf off bfr 300 poor art flow. 08/09/23 1945 300 mL/min 830 ml/hr -200 mmHg 180 mmHg 60 600 Yes Pt alert stable. Pt on phone, rmvd 203108/09/232001 -- -- -- -- -- -- Yes tx complete, pt stable, 2031 removed Vital Signs Patient Vitals for the past 24 hrs: BP Temp Temp src Pulse Resp SpO2 Height Weight 08/09/232039 (!) 147/75 -- -- 82 18 100 % -- -- 08/09/232011 (!) 149/74 -- -- 86 -- -- -- -- 08/09/232001 (!) 140/67 36.4 C (97.6 F) -- 92 16 96 % -- -- 08/09/231944 121/69 -- -- 91 -- -- -- -- 08/09/23 193 91/55 -- -- 86 -- -- -- -- 08/09/23 191 (!) 151/74 -- -- 90 -- -- -- -- 08/09/23 1901 138/78 -- -- 91 -- -- -- -- 08/09/23 1845 134/72 -- -- 98 -- -- -- -- 08/09/23 1833 (!) 152/77 -- -- 94 -- -- -- -- 08/09/23 1815 (!) 157/74 -- -- 93 -- -- -- -- 08/09/23 1800 (!) 145/70 -- -- 92 -- -- -- -- 08/09/23 1745 (!) 142/79 -- -- 97 -- -- -- -- 08/09/23 1730 (!) 147/74 -- -- 88 -- -- -- -- 08/09/23 1704 (!) 172/91 -- -- 100 -- -- -- -- 08/09/23 1702 (!) 157/84 -- -- 92 -- -- -- -- 08/09/23 1645 (!) 157/92 36.2 C (97.2 F) -- 91 16 95 % -- -- 08/09/23 1544 (!) 155/93 -- -- -- -- -- -- -- 08/09/23 1543 -- 36.7 C (98.1 F) Tympanic 93 16 98 % 1.626 m (5' 4) 49.9 kg (110 lb) Post-Dialysis Arterial Catheter Locking Solution: Not Applicable Venous Catheter Locking Solution: Not Applicable Post-Treatment Procedures: Blood returned, Access bleeding time < 10 minutes Machine Disinfection Process: Acid/Vinegar Clean, Heat Disinfect, Exterior Machine Disinfection Rinseback Volume (mL): 300 mL Total Liters Processed (L/min): 55.7 L/min Dialyzer Clearance: Lightly streaked Hemodialysis Intake (ml): 500 ml Hemodialysis Output (ml): 2032 ml NET Removed (ml): 1532 ml Tolerated Treatment: Good Interventions Taken: Ultrafiltration stopped Patient Response to Treatment: stable Physician Notified: No Patient Disposition: Return to room Charge: Provider Notification Handoff complete and report given to Primary RN at 2015. Primary RN (First Initial, Last Name, Title): Keila Galdamez RN Education Person Educated: Patient Knowledge Base: Minimal Barriers to Learning?: None Preferred method of Learning: Oral Topic(s): call light, Access Care, Signs and Symptoms of Infection, and Fluid Management Teaching Tools: Demonstration Response to Education: Verbalized Understanding documented in this encounter [facility] 08-09-2023 Emergency department Note Lab called with potassium 6.1 with no hemolysis, same reported to Dr. Velasquez via secure chat Jenn Adams RN 08/09/23 1650 [facility] 08-09-2023 Emergency department Note Pt taken to dialysis Regi Galdamez RN 08/09/23 1638 [facility] 08-09-2023 Consult note Formatting of th is note is different from the original. [facility] [address] [place] [address] Consult Note Patient's Name: Apoorva Gonzalez 4:37 PM 08/09/2023 History of Present Ilness: Apoorva Gonzalez is a 73 y.o. female with hx including ESRD, is TTS HD patient at [facility] Rosalino Gaitan. 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 Was found to have 8.0K on outpatient labwork on 08/06 (likely collected prior to HD that day). Was referred to ER in relation to hyperkalemia. Denied SOB. Past Medical History: Diagnosis Date Chronic kidney disease (CKD) Hemodialysis patient (CMS/HCC) (HCC) Wednesday, , Wednesday History of blood transfusion 02/27/2022 Hypertension Seizure ([facility]) Developed seizure-like activity on 02/24 during hospital admission Past Surgical History: Procedure Laterality Date AV FISTULA PLACEMENT Left 08/07/2022 IR CVC TUNNELED DIALYSIS CATHETER PLACEMENT 02/27/2022 IR CVC TUNNELED CATHETER PLACEMENT 02/27/2022 Candis Andrade MD [facility] SPECIAL PROCEDURES Family History Problem Relation Name Age of Onset Dementia Mother Stroke Father Breast cancer Cousin reports that she has never smoked. She has never used smokeless tobacco. She reports current alcohol use of about 2.0 standard drinks of alcohol per week. She reports that she does not use drugs. Allergies: Patient has no known allergies. Medications: No current facility-administered medications on file prior to encounter. Current Outpatient Medications on File Prior to Encounter Medication Sig Dispense Refill amLODIPine (Norvasc) 5 MG tablet Take 1 tablet (5 mg) by mouth daily. (Patient taking differently: Take 10 mg by mouth daily.) 30 tablet 11 atorvastatin (Lipitor) 40 MG tablet Take 1 tablet (40 mg) by mouth Nightly. 30 tablet 11 calcium acetate (Phoslo) 667 MG tablet Take 1 tablet by mouth in the morning and 1 tablet at noon and 1 tablet in the evening. Take with meals. cholecalciferol (Vitamin D-3) 125 MCG (5000 UT) capsule Take 5,000 Units by mouth daily. levETIRAcetam (Keppra) 500 MG tablet Take 1 tablet (500 mg) by mouth daily. 30 tablet 1 omega-3 (Fish Oil) 1000 MG capsule Take 1,000 mg by mouth daily. Thiamine HCl (vitamin B-1) 250 MG tablet Take 250 mg by mouth daily. VITAMIN E PO Take by mouth daily. Review of Systems: ROS as in HPI Physical exam: BP (!) 155/93 Pulse 93 Temp 36.7 C (98.1 F) (Tympanic) Resp 16 Ht 1.626 m (5' 4) Wt 49.9 kg (110 lb) SpO2 98% BMI 18.88 kg/m Was alert Labs: No results for input(s): WBC, HGB, HCT, MCV, PLT in the last 72 hours. No results for input(s): NA, K, CL, CO2, GLUCOSE, PHOS, MG, BUN, CREATININE, CALCIUM, LABGLOM in the last 72 hours. No lab exists for component: CA, GFRAA Ionized Calcium: No components found for: IONCA Magnesium: No results found for: MG Phosphorus: No results found for: PHOS Input / Output: 24 HR: No intake or output data in the 24 hours ending 08/09/23 1637 IV Intake: Whyte: Assessment: Apoorva Gonzalez is a 73 y.o. female with hx including ESRD, presented in relation to hyperkalemia. Hyperkalemia -had outpatient K of 8.0, which may have been collected prior to HD on Wednesday -RFP was ordered -correction with HD ESRD -on TTS schedule as outpatient Plan: -check RFP -HD today, plan for component with 1K bath, may adjust duration of this depending on K result today PARK Koenig CNP Pt seen and examined independently by me. I reviewed with MAYANK Leyva the medical history and the findings on physical examination. I discussed the patient s diagnosis and concur with the treatment plan as documented in his note. Please call [phone] or message me through [employer] with any questions or concerns. [employer] Phone: 08-09-2023 Consult note Formatting of th is note is different from the original. [facility] [address] [place] [address] Consult Note Patient's Name: Apoorva Gonzalez 4:37 PM 08/09/2023 History of Present Ilness: Apoorva Gonzalez is a 73 y.o. female with hx including ESRD, is TTS HD patient at [facility]. 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 Was found to have 8.0K on outpatient labwork on 08/06 (likely collected prior to HD that day). Was referred to ER in relation to hyperkalemia. Denied SOB. Past Medical History: Diagnosis Date Chronic kidney disease (CKD) Hemodialysis patient (CMS/HCC) (HCC) Wednesday, , Wednesday History of blood transfusion 02/27/2022 Hypertension Seizure (HCC) Developed seizure-like activity on 02/24 during hospital admission Past Surgical History: Procedure Laterality Date AV FISTULA PLACEMENT Left 08/07/2022 IR CVC TUNNELED DIALYSIS CATHETER PLACEMENT 02/27/2022 IR CVC TUNNELED CATHETER PLACEMENT 02/27/2022 Candis Andrade MD [facility] SPECIAL PROCEDURES Family History Problem Relation Name Age of Onset Dementia Mother Stroke Father Breast cancer Cousin reports that she has never smoked. She has never used smokeless tobacco. She reports current alcohol use of about 2.0 standard drinks of alcohol per week. She reports that she does not use drugs. Allergies: Patient has no known allergies. Medications: No current facility-administered medications on file prior to encounter. Current Outpatient Medications on File Prior to Encounter Medication Sig Dispense Refill amLODIPine (Norvasc) 5 MG tablet Take 1 tablet (5 mg) by mouth daily. (Patient taking differently: Take 10 mg by mouth daily.) 30 tablet 11 atorvastatin (Lipitor) 40 MG tablet Take 1 tablet (40 mg) by mouth Nightly. 30 tablet 11 calcium acetate (Phoslo) 667 MG tablet Take 1 tablet by mouth in the morning and 1 tablet at noon and 1 tablet in the evening. Take with meals. cholecalciferol (Vitamin D-3) 125 MCG (5000 UT) capsule Take 5,000 Units by mouth daily. levETIRAcetam (Keppra) 500 MG tablet Take 1 tablet (500 mg) by mouth daily. 30 tablet 1 omega-3 (Fish Oil) 1000 MG capsule Take 1,000 mg by mouth daily. Thiamine HCl (vitamin B-1) 250 MG tablet Take 250 mg by mouth daily. VITAMIN E PO Take by mouth daily. Review of Systems: ROS as in HPI Physical exam: BP (!) 155/93 Pulse 93 Temp 36.7 C (98.1 F) (Tympanic) Resp 16 Ht 1.626 m (5' 4) Wt 49.9 kg (110 lb) SpO2 98% BMI 18.88 kg/m Was alert Labs: No results for input(s): WBC, HGB, HCT, MCV, PLT in the last 72 hours. No results for input(s): NA, K, CL, CO2, GLUCOSE, PHOS, MG, BUN, CREATININE, CALCIUM, LABGLOM in the last 72 hours. No lab exists for component: CA, GFRAA Ionized Calcium: No components found for: IONCA Magnesium: No results found for: MG Phosphorus: No results found for: PHOS Input / Output: 24 HR: No intake or output data in the 24 hours ending 08/09/23 1637 IV Intake: Whyte: Assessment: Apoorva Gonzalez is a 73 y.o. female with hx including ESRD, presented in relation to hyperkalemia. Hyperkalemia -had outpatient K of 8.0, which may have been collected prior to HD on Wednesday -RFP was ordered -correction with HD ESRD -on TTS schedule as outpatient Plan: -check RFP -HD today, plan for component with 1K bath, may adjust duration of this depending on K result today PARK Koenig CNP Pt seen and examined independently by me. I reviewed with MAYANK Leyva the medical history and the findings on physical examination. I discussed the patient s diagnosis and concur with the treatment plan as documented in his note. Please call [phone] or message me through [employer] with any questions or concerns. documented in this encounter [facility] 03-03-2023 Emergency department Note Pt discharged to home alert by CRISTO Rcoha Tracey L. Harper, RN 03/03/23 105 [facility] 03-03-2023 Emergency department Note Pt discharged to home alert by CRISTO Rocha, Essie Ward RN 03/03/23 105 Emergency Department Encounter [facility] EMERGENCY DEPT Patient: Apoorva Gonzalez : 1950 Date of Evaluation: 03/03/2023 ED Provider: Balta Wang MD I saw the patient as the Clinician in Triage and performed a brief history and physical exam, established acuity, and ordered appropriate tests to develop basic plan of care. Patient will be seen by CRISTO, resident and/or my physician partner who will evaluate the patient. I wore appropriate PPE for the entirety of this encounter. Brief HPI: In brief, Apoorva Gonzalez is a 72 y.o. that presents with chief complaint of for evaluation of elevated potassium. States she was told yesterday during her dialysis treatment that her potassium was elevated. She states she was given something to drink to help her potassium. States she did not want to come to the ER yesterday and came today for evaluation. She denies symptoms at this time. Focused Physical exam: Awake and alert. Afebrile. Nontoxic. Lungs clear to auscultation. Heart regular rate and rhythm. Abdomen soft nondistended without focal tenderness rebound or guarding EKG: Normal sinus rhythm. Rate of 88. Normal axis. No ST segment elevation. Criteria for LVH. No significant change prior to previous 02/24/2022. Today's EKG interpreted by this examiner Plan/MDM: Lab studies obtained to evaluate her potassium. Anticipate if her potassium is normal today we will be able to discharge patient. There is no changes on her EKG. Patients symptoms are consistent with sepsis, severe sepsis, or septic shock (If yes use .sepsiscoremeasure): no Please see subsequent provider note for further details and disposition This will serve as my Supervisory note and shared attestation. I did perform a substantive portion of the visit including all aspects of the Medical Decision Making. All diagnostic, treatment, and disposition decisions were made by myself in conjunction with the CRISTO. For all further details of the patient's emergency department visit, please see their documentation. (Comment: Please note this report has been produced using speech recognition software and may contain errors related to that system including errors in grammar, punctuation, and spelling as well as words and phrases that may be inappropriate. If there are any questions or concerns please feel free to contact the dictating provider for clarification) Balta Wang MD [employer] Balta Wang MD 03/03/23 1055 EMERGENCY DEPARTMENT ENCOUNTER Pt Name: Apoorva Gonzalez Birthdate 1950 Date of evaluation: 03/03/2023 ED Provider: FREDI Del Angel CHIEF COMPLAINT Chief Complaint Patient presents with Abnormal Labs Pt sent here from dialysis for elevated K+. Had dialysis yesterday. HISTORY OF PRESENT ILLNESS (Location/Symptom, Timing/Onset, Context/Setting, Quality, Duration, Modifying Factors, Severity) Note limiting factors. I wore appropriate PPE for the entirety of this encounter. HPI Apoorva Gonzalez is a 72 y.o. female who presents to the emergency department for evaluation of hyperkalemia. Patient reports that she has ESRD and on hemodialysis Wednesday, , Wednesday. States that she was getting dialyzed yesterday when they noted her potassium to be severely elevated. Reports that she was sent home with Kayexalate and was dialyzed yesterday. States that she was instructed to come to ED due to elevated potassium. Patient denies any symptoms currently. Denies any abdominal pain, nausea, vomiting. Denies any lightheadedness or dizziness. Denies any chest pain or shortness of breath. Reports that she was dialyzed yesterday and has dialysis scheduled for tomorrow. States that she routinely goes to dialysis and does not miss an appointment. Nursing Notes were reviewed. Limitations to history: None Outside historians: None REVIEW OF SYSTEMS Review of Systems 6 systems reviewed, positives and pertinent negatives as per HPI. All other systems were reviewed and are negative. PAST MEDICAL HISTORY Past Medical History: Diagnosis Date Chronic kidney disease (CKD) Hemodialysis patient (CMS/HCC) (HCC) Wednesday, , Wednesday History of blood transfusion 02/27/2022 Hypertension Seizure ([facility]) Developed seizure-like activity on 02/24 during hospital admission SURGICAL HISTORY Past Surgical History: Procedure Laterality Date AV FISTULA PLACEMENT Left 08/07/2022 IR CVC TUNNELED DIALYSIS CATHETER PLACEMENT 02/27/2022 IR CVC TUNNELED CATHETER PLACEMENT 02/27/2022 Candis Andrade MD [facility] SPECIAL PROCEDURES CURRENT MEDICATIONS Discharge Medication List as of 03/03/2023 10:48 AM CONTINUE these medications which have NOT CHANGED Details amLODIPine (Norvasc) 5 MG tablet Take 1 tablet (5 mg) by mouth daily., Starting Wed03/02/2022, Until Wed03/02/2023, Normal atorvastatin (Lipitor) 40 MG tablet Take 1 tablet (40 mg) by mouth Nightly., Starting Wed03/02/2022, Until Wed03/02/2023, Normal calcium acetate (Phoslo) 667 MG tablet Take 1 tablet by mouth in the morning and 1 tablet at noon and 1 tablet in the evening. Take with meals., Starting Wed07/01/2022, Historical Med cholecalciferol (Vitamin D-3) 125 MCG (5000 UT) capsule Take 5,000 Units by mouth daily., Historical Med iron sucrose (Venofer) 20 MG/ML injection Infuse 50 mg into a venous catheter per week., Starting Wed04/14/2022, Until Wed04/06/2023, Historical Med levETIRAcetam (Keppra) 500 MG tablet Take 1 tablet (500 mg) by mouth daily., Starting Wed03/02/2022, Until Wed08/26/2022, Normal omega-3 (Fish Oil) 1000 MG capsule Take 1,000 mg by mouth daily., Historical Med Thiamine HCl (vitamin B-1) 250 MG tablet Take 250 mg by mouth daily., Historical Med VITAMIN E PO Take by mouth daily., Historical Med ALLERGIES Patient has no known allergies. FAMILY HISTORY Family History Problem Relation Name Age of Onset Dementia Mother Stroke Father Breast cancer Cousin SOCIAL HISTORY Social History Socioeconomic History Marital status: Tobacco Use Smoking status: Never Smokeless tobacco: Never Vaping Use Vaping Use: Never used Substance and Sexual Activity Alcohol use: Yes Alcohol/week: 2.0 standard drinks of alcohol Types: 2 Glasses of wine per week Comment: weekly Drug use: Never Social Determinants of Health Transportation Needs: No Transportation Needs (02/22/2022) PRAPARE - Transportation Lack of Transportation (Medical): No Lack of Transportation (Non-Medical): No Intimate Partner Violence: Not At Risk (08/07/2022) Humiliation, Afraid, Rape, and Kick questionnaire Fear of Current or Ex-Partner: No Emotionally Abused: No Physically Abused: No Sexually Abused: No SCREENINGS PHYSICAL EXAM ED Triage Vitals [03/03/23 0832] Temp Heart Rate Resp BP 36.6 C (97.8 F) 88 18 (!) 143/72 SpO2 Temp Source Heart Rate Source Patient Position 96 % Temporal Monitor -- BP Location FiO2 (%) -- -- Physical Exam Vitals and nursing note reviewed. Constitutional: General: She is not in acute distress. Appearance: She is not toxic-appearing. Comments: Pleasant 72-year-old female who does not appear to be in acute distress or discomfort. HENT: Head: Normocephalic and atraumatic. Nose: Nose normal. Mouth/Throat: Mouth: Mucous membranes are moist. Pharynx: Oropharynx is clear. Eyes: Conjunctiva/sclera: Conjunctivae normal. Cardiovascular: Rate and Rhythm: Normal rate and regular rhythm. Pulses: Normal pulses. Heart sounds: Normal heart sounds. Pulmonary: Effort: Pulmonary effort is normal. Breath sounds: Normal breath sounds. Abdominal: Comments: Abdomen soft and nonrigid. No tenderness to palpation of abdomen diffusely. No peritoneal signs of abdomen noted. Musculoskeletal: Cervical back: Normal range of motion and neck supple. Skin: General: Skin is warm and dry. Capillary Refill: Capillary refill takes less than 2 seconds. Neurological: General: No focal deficit present. Mental Status: She is alert and oriented to person, place, and time. Psychiatric: Mood and Affect: Mood normal. DIAGNOSTIC RESULTS RADIOLOGY (Per Emergency Physician): Interpretation per the Radiologist below, if available at the time of this note: No orders to display LABS: Labs Reviewed CBC WITH AUTO DIFFERENTIAL - Abnormal Result Value Auto WBC 8.6 RBC 3.34 (*) Hemoglobin 10.6 (*) Hematocrit 32.3 (*) MCV 96.7 MCH 31.6 MCHC 32.7 RDW 15.7 (*) Platelets 351 MPV 7.8 nRBC 0.0 Neutrophils Relative 60.4 Lymphocytes Relative 25.4 Monocytes Relative 8.8 Eosinophils Relative 4.0 Basophils Relative 1.4 Neutrophils Absolute 5.2 Lymphocytes Absolute 2.2 Monocytes Absolute 0.8 Eosinophils Absolute 0.3 Basophils Absolute 0.1 BASIC METABOLIC PANEL - Abnormal SODIUM 135 POTASSIUM 4.3 CHLORIDE 91 (*) CARBON DIOXIDE 28 UREA NITROGEN 33 (*) CREATININE 6.25 (*) GLUCOSE 89 CALCIUM 9.4 ANION GAP 15 (*) eGFR 6.7 (*) TROPONIN I - Normal TROPONIN I <0.012 Narrative: Patients with high levels of Biotin oral intake (ie >5 mg/day) may have falsely decreased Troponin levels. All other labs were within normal range or not returned as of this dictation. EMERGENCY DEPARTMENT COURSE and DIFFERENTIAL DIAGNOSIS/MDM: Vitals: Vitals: 03/03/23 0832 BP: (!) 143/72 Pulse: 88 Resp: 18 Temp: 36.6 C (97.8 F) TempSrc: Temporal SpO2: 96% Medications - No data to display ED care was supervised by Dr. Wang who independently examined and evaluated the patient. Please see their attestation note for further details. In brief, Apoorva Gonzalez is a 72 y.o. female who presented to the emergency department for evaluation of hyperkalemia that was noted at dialysis yesterday. HPI further details. Nursing notes and medical records reviewed, patient noted to be ESRD with hemodialysis on Wednesday, , Wednesday. No recent visits or studies correlating patient's presenting symptoms. Differential considerations included hyperkalemia, cardiac arrhythmias, electrolyte abnormalities. Initial medical management includes no initial medical management was initiated in the ED. Initial workup includes CBC, BMP, troponin, EKG. Upon reassessment patient resting comfortably in ED bed. Patient reports still having no symptoms at this time. Lab workup results CBC shows no signs of leukocytosis. BMP shows a creatinine of 6.25 although this is noted to be around patient's baseline. Potassium is within normal limits at 4.3. Low suspicion for hyperkalemia as there is none noted on lab work. Troponin within normal limits. EKG shows normal sinus rhythm with no evidence of peaked T waves. Chronic conditions contributing to patients presentation include ESRD on hemodialysis Wednesday, , Wednesday, hypertension. I have low suspiscion for (effectively ruled ddx out via) hyperkalemia as there is no evidence on lab work today in the ED. Social determinants to care: None noted. Diagnosis ESRD on hemodialysis. Disposition discharge home stable. Discussed with patient potassium within normal limits here today in the ED. Discussed with patient that I have low suspicion for potassium as there is no evidence on lab work. Discussed that creatinine/kidney function is within normal limits for patient. Discussed with patient that she is not currently having any symptoms I do feel comfortable discharging her at this time. Instructed patient that she needs to continue with dialysis on Wednesday, , Saturdays. Patient demonstrated understanding and states that she will go to dialysis tomorrow. Alternate disposition considered none. Prescriptions provided none. Discussed ED return precautions, recommended consulting their primary doctor or returning to the ED if there are any new or worsening of symptoms, particularly worsening symptoms, hyperkalemia noted at dialysis, abdominal pain, nausea, vomiting, chest pain, shortness of breath, lightheadedness, dizziness, falls. Follow-up PCP as needed for reevaluation. Please follow-up with dialysis for scheduled appointment on Wednesday, , Saturdays. PROCEDURES: Unless otherwise noted below, none Procedures FINAL IMPRESSION 1. ESRD on hemodialysis ([facility]) ([facility]) DISPOSITION Discharge 03/03/2023 10:40:48 AM PATIENT REFERRED TO: Christiano Grove DO [address] [facility] [address] DISCHARGE MEDICATIONS: Discharge Medication List as of 03/03/2023 10:48 AM (Comment: Please note this report has been produced using speech recognition software and may contain errors related to that system including errors in grammar, punctuation, and spelling, as well as words and phrases that may be inappropriate. If there are any questions or concerns please feel free to contact the dictating provider for clarification.) FREDI Del Angel (electronically signed) Emergency Medicine Provider FREDI Del Angel 03/03/23 1108 documented in this encounter [facility] 03-03-2023 Hospital Discharge instructions FREDI Del Angel - 03/03/2023 10:48 AM EST Potassium is 4.3 here today in the ED which is within normal limits. At this time there is no intervention warranted in the ED. Please continue with your scheduled dialysis on Wednesday, , Saturdays. Please follow-up with Dr. Grove as needed. Return to the ED with any new or worsening symptoms. documented in this encounter [facility] 03-03-2023 Physician Emergency department Note Emergency Department Encounter [facility] EMERGENCY DEPT Patient: Apoorva Gonzalez : 1950 Date of Evaluation: 03/03/2023 ED Provider: Balta Wang MD I saw the patient as the Clinician in Triage and performed a brief history and physical exam, established acuity, and ordered appropriate tests to develop basic plan of care. Patient will be seen by CRISTO, resident and/or my physician partner who will evaluate the patient. I wore appropriate PPE for the entirety of this encounter. Brief HPI: In brief, Apoorva Gonzalez is a 72 y.o. that presents with chief complaint of for evaluation of elevated potassium. States she was told yesterday during her dialysis treatment that her potassium was elevated. She states she was given something to drink to help her potassium. States she did not want to come to the ER yesterday and came today for evaluation. She denies symptoms at this time. Focused Physical exam: Awake and alert. Afebrile. Nontoxic. Lungs clear to auscultation. Heart regular rate and rhythm. Abdomen soft nondistended without focal tenderness rebound or guarding EKG: Normal sinus rhythm. Rate of 88. Normal axis. No ST segment elevation. Criteria for LVH. No significant change prior to previous 02/24/2022. Today's EKG interpreted by this examiner Plan/MDM: Lab studies obtained to evaluate her potassium. Anticipate if her potassium is normal today we will be able to discharge patient. There is no changes on her EKG. Patients symptoms are consistent with sepsis, severe sepsis, or septic shock (If yes use .sepsiscoremeasure): no Please see subsequent provider note for further details and disposition This will serve as my Supervisory note and shared attestation. I did perform a substantive portion of the visit including all aspects of the Medical Decision Making. All diagnostic, treatment, and disposition decisions were made by myself in conjunction with the CRISTO. For all further details of the patient's emergency department visit, please see their documentation. (Comment: Please note this report has been produced using speech recognition software and may contain errors related to that system including errors in grammar, punctuation, and spelling as well as words and phrases that may be inappropriate. If there are any questions or concerns please feel free to contact the dictating provider for clarification) Balta Wang MD [employer] Balta Wang MD 03/03/23 1055 [employer] Phone: 03-03-2023 Physician Emergency department Note EMERGENCY DEPARTMENT ENCOUNTER Pt Name: Apoorva Gonzalez Birthdate 1950 Date of evaluation: 03/03/2023 ED Provider: FREDI Del Angel CHIEF COMPLAINT Chief Complaint Patient presents with Abnormal Labs Pt sent here from dialysis for elevated K+. Had dialysis yesterday. HISTORY OF PRESENT ILLNESS (Location/Symptom, Timing/Onset, Context/Setting, Quality, Duration, Modifying Factors, Severity) Note limiting factors. I wore appropriate PPE for the entirety of this encounter. HPI Apoorva Gonzalez is a 72 y.o. female who presents to the emergency department for evaluation of hyperkalemia. Patient reports that she has ESRD and on hemodialysis Wednesday, , Wednesday. States that she was getting dialyzed yesterday when they noted her potassium to be severely elevated. Reports that she was sent home with Kayexalate and was dialyzed yesterday. States that she was instructed to come to ED due to elevated potassium. Patient denies any symptoms currently. Denies any abdominal pain, nausea, vomiting. Denies any lightheadedness or dizziness. Denies any chest pain or shortness of breath. Reports that she was dialyzed yesterday and has dialysis scheduled for tomorrow. States that she routinely goes to dialysis and does not miss an appointment. Nursing Notes were reviewed. Limitations to history: None Outside historians: None REVIEW OF SYSTEMS Review of Systems 6 systems reviewed, positives and pertinent negatives as per HPI. All other systems were reviewed and are negative. PAST MEDICAL HISTORY Past Medical History: Diagnosis Date Chronic kidney disease (CKD) Hemodialysis patient (CMS/HCC) (HCC) Wednesday, , Wednesday History of blood transfusion 02/27/2022 Hypertension Seizure ([facility]) Developed seizure-like activity on 02/24 during hospital admission SURGICAL HISTORY Past Surgical History: Procedure Laterality Date AV FISTULA PLACEMENT Left 08/07/2022 IR CVC TUNNELED DIALYSIS CATHETER PLACEMENT 02/27/2022 IR CVC TUNNELED CATHETER PLACEMENT 02/27/2022 Candis Andrade MD [facility] SPECIAL PROCEDURES CURRENT MEDICATIONS Discharge Medication List as of 03/03/2023 10:48 AM CONTINUE these medications which have NOT CHANGED Details amLODIPine (Norvasc) 5 MG tablet Take 1 tablet (5 mg) by mouth daily., Starting Wed03/02/2022, Until Wed03/02/2023, Normal atorvastatin (Lipitor) 40 MG tablet Take 1 tablet (40 mg) by mouth Nightly., Starting Wed03/02/2022, Until Wed03/02/2023, Normal calcium acetate (Phoslo) 667 MG tablet Take 1 tablet by mouth in the morning and 1 tablet at noon and 1 tablet in the evening. Take with meals., Starting Wed07/01/2022, Historical Med cholecalciferol (Vitamin D-3) 125 MCG (5000 UT) capsule Take 5,000 Units by mouth daily., Historical Med iron sucrose (Venofer) 20 MG/ML injection Infuse 50 mg into a venous catheter per week., Starting Wed04/14/2022, Until Wed04/06/2023, Historical Med levETIRAcetam (Keppra) 500 MG tablet Take 1 tablet (500 mg) by mouth daily., Starting Wed03/02/2022, Until Wed08/26/2022, Normal omega-3 (Fish Oil) 1000 MG capsule Take 1,000 mg by mouth daily., Historical Med Thiamine HCl (vitamin B-1) 250 MG tablet Take 250 mg by mouth daily., Historical Med VITAMIN E PO Take by mouth daily., Historical Med ALLERGIES Patient has no known allergies. FAMILY HISTORY Family History Problem Relation Name Age of Onset Dementia Mother Stroke Father Breast cancer Cousin SOCIAL HISTORY Social History Socioeconomic History Marital status: Tobacco Use Smoking status: Never Smokeless tobacco: Never Vaping Use Vaping Use: Never used Substance and Sexual Activity Alcohol use: Yes Alcohol/week: 2.0 standard drinks of alcohol Types: 2 Glasses of wine per week Comment: weekly Drug use: Never Social Determinants of Health Transportation Needs: No Transportation Needs (02/22/2022) PRAPARE - Transportation Lack of Transportation (Medical): No Lack of Transportation (Non-Medical): No Intimate Partner Violence: Not At Risk (08/07/2022) Humiliation, Afraid, Rape, and Kick questionnaire Fear of Current or Ex-Partner: No Emotionally Abused: No Physically Abused: No Sexually Abused: No SCREENINGS PHYSICAL EXAM ED Triage Vitals [03/03/23 0832] Temp Heart Rate Resp BP 36.6 C (97.8 F) 88 18 (!) 143/72 SpO2 Temp Source Heart Rate Source Patient Position 96 % Temporal Monitor -- BP Location FiO2 (%) -- -- Physical Exam Vitals and nursing note reviewed. Constitutional: General: She is not in acute distress. Appearance: She is not toxic-appearing. Comments: Pleasant 72-year-old female who does not appear to be in acute distress or discomfort. HENT: Head: Normocephalic and atraumatic. Nose: Nose normal. Mouth/Throat: Mouth: Mucous membranes are moist. Pharynx: Oropharynx is clear. Eyes: Conjunctiva/sclera: Conjunctivae normal. Cardiovascular: Rate and Rhythm: Normal rate and regular rhythm. Pulses: Normal pulses. Heart sounds: Normal heart sounds. Pulmonary: Effort: Pulmonary effort is normal. Breath sounds: Normal breath sounds. Abdominal: Comments: Abdomen soft and nonrigid. No tenderness to palpation of abdomen diffusely. No peritoneal signs of abdomen noted. Musculoskeletal: Cervical back: Normal range of motion and neck supple. Skin: General: Skin is warm and dry. Capillary Refill: Capillary refill takes less than 2 seconds. Neurological: General: No focal deficit present. Mental Status: She is alert and oriented to person, place, and time. Psychiatric: Mood and Affect: Mood normal. DIAGNOSTIC RESULTS RADIOLOGY (Per Emergency Physician): Interpretation per the Radiologist below, if available at the time of this note: No orders to display LABS: Labs Reviewed CBC WITH AUTO DIFFERENTIAL - Abnormal Result Value Auto WBC 8.6 RBC 3.34 (*) Hemoglobin 10.6 (*) Hematocrit 32.3 (*) MCV 96.7 MCH 31.6 MCHC 32.7 RDW 15.7 (*) Platelets 351 MPV 7.8 nRBC 0.0 Neutrophils Relative 60.4 Lymphocytes Relative 25.4 Monocytes Relative 8.8 Eosinophils Relative 4.0 Basophils Relative 1.4 Neutrophils Absolute 5.2 Lymphocytes Absolute 2.2 Monocytes Absolute 0.8 Eosinophils Absolute 0.3 Basophils Absolute 0.1 BASIC METABOLIC PANEL - Abnormal SODIUM 135 POTASSIUM 4.3 CHLORIDE 91 (*) CARBON DIOXIDE 28 UREA NITROGEN 33 (*) CREATININE 6.25 (*) GLUCOSE 89 CALCIUM 9.4 ANION GAP 15 (*) eGFR 6.7 (*) TROPONIN I - Normal TROPONIN I <0.012 Narrative: Patients with high levels of Biotin oral intake (ie >5 mg/day) may have falsely decreased Troponin levels. All other labs were within normal range or not returned as of this dictation. EMERGENCY DEPARTMENT COURSE and DIFFERENTIAL DIAGNOSIS/MDM: Vitals: Vitals: 03/03/23 0832 BP: (!) 143/72 Pulse: 88 Resp: 18 Temp: 36.6 C (97.8 F) TempSrc: Temporal SpO2: 96% Medications - No data to display ED care was supervised by Dr. Wang who independently examined and evaluated the patient. Please see their attestation note for further details. In brief, Apoorva Gonzalez is a 72 y.o. female who presented to the emergency department for evaluation of hyperkalemia that was noted at dialysis yesterday. HPI further details. Nursing notes and medical records reviewed, patient noted to be ESRD with hemodialysis on Wednesday, , Wednesday. No recent visits or studies correlating patient's presenting symptoms. Differential considerations included hyperkalemia, cardiac arrhythmias, electrolyte abnormalities. Initial medical management includes no initial medical management was initiated in the ED. Initial workup includes CBC, BMP, troponin, EKG. Upon reassessment patient resting comfortably in ED bed. Patient reports still having no symptoms at this time. Lab workup results CBC shows no signs of leukocytosis. BMP shows a creatinine of 6.25 although this is noted to be around patient's baseline. Potassium is within normal limits at 4.3. Low suspicion for hyperkalemia as there is none noted on lab work. Troponin within normal limits. EKG shows normal sinus rhythm with no evidence of peaked T waves. Chronic conditions contributing to patients presentation include ESRD on hemodialysis Wednesday, , Wednesday, hypertension. I have low suspiscion for (effectively ruled ddx out via) hyperkalemia as there is no evidence on lab work today in the ED. Social determinants to care: None noted. Diagnosis ESRD on hemodialysis. Disposition discharge home stable. Discussed with patient potassium within normal limits here today in the ED. Discussed with patient that I have low suspicion for potassium as there is no evidence on lab work. Discussed that creatinine/kidney function is within normal limits for patient. Discussed with patient that she is not currently having any symptoms I do feel comfortable discharging her at this time. Instructed patient that she needs to continue with dialysis on Wednesday, , Saturdays. Patient demonstrated understanding and states that she will go to dialysis tomorrow. Alternate disposition considered none. Prescriptions provided none. Discussed ED return precautions, recommended consulting their primary doctor or returning to the ED if there are any new or worsening of symptoms, particularly worsening symptoms, hyperkalemia noted at dialysis, abdominal pain, nausea, vomiting, chest pain, shortness of breath, lightheadedness, dizziness, falls. Follow-up PCP as needed for reevaluation. Please follow-up with dialysis for scheduled appointment on Wednesday, , Saturdays. PROCEDURES: Unless otherwise noted below, none Procedures FINAL IMPRESSION 1. ESRD on hemodialysis ([facility]) ([facility]) DISPOSITION Discharge 03/03/2023 10:40:48 AM PATIENT REFERRED TO: Christiano Grove DO [address] [facility] [id number] DISCHARGE MEDICATIONS: Discharge Medication List as of 03/03/2023 10:48 AM (Comment: Please note this report has been produced using speech recognition software and may contain errors related to that system including errors in grammar, punctuation, and spelling, as well as words and phrases that may be inappropriate. If there are any questions or concerns please feel free to contact the dictating provider for clarification.) FREDI Del Angel (electronically signed) Emergency Medicine Provider FREDI Del Angel 03/03/23 1108 [facility] 10-01-2022 Emergency department Note Wound care completed. Ordered treatment completed. Patient discharged without any issues. Patient has a copy dc papers and verbalizes understanding. All questions answered. Nickie Pizarro LPN 10/01/22 0549 [facility] 10-01-2022 Emergency department Note Wound care completed. Ordered treatment completed. Patient discharged without any issues. Patient has a copy dc papers and verbalizes understanding. All questions answered. Nickie Pizarro LPN 10/01/22 1405 Emergency Department Encounter [facility] EMERGENCY DEPT Patient: Apoorva Gonzalez : 1950 Date of Evaluation: 10/01/2022 ED Supervising Physician: Mak Hilario MD I independently examined and evaluated Apoorva Gonzalez. This will serve as my Supervisory note and shared attestation. I did perform a substantive portion of the visit including all aspects of the Medical Decision Making. I wore appropriate PPE for the entirety of this encounter. In brief, Apoorva Gonzalez is a 72 y.o. that presents to the emergency department patient has chronic renal failure had Abbass cath while her shunt was getting prepared. Vas-Cath was pulled yesterday she had dialysis which I gave her heparin her Vas-Cath site continues to bleed today. No shortness of breath chest pain Focused exam: Patient alert and orient x4 vital signs are noted. Card pulm exam is normal. The shunt in her left forearm is working fine. Her Vas-Cath site does note some dried blood around it no evidence of cellulitis. Brief ED course/MDM: Get a chest x-ray make sure the lungs okay do wound care dressing should prevent further leakage All diagnostic, treatment, and disposition decisions were made by myself in conjunction with the [facility]. For all further details of the patient's emergency department visit, please see their documentation. (Comment: Please note this report has been produced using speech recognition software and may contain errors related to that system including errors in grammar, punctuation, and spelling, as well as words and phrases that may be inappropriate. If there are any questions or concerns please feel free to contact the dictating provider for clarification.) Mak Hilario MD Acute Care [facility] Mak Hilario MD 10/01/221947 Images from the original note were not included. EMERGENCY DEPARTMENT ENCOUNTER Pt Name: Apoorva Gonzalez Birthdate 1950 Date of evaluation: 10/01/2022 ED Provider: FREDI Sampson EDcare was supervised by Dr. Hilario who independently examined and evaluated the patient. Please see their attestation note for further details. CHIEF COMPLAINT No chief complaint on file. HISTORY OF PRESENT ILLNESS (Location/Symptom, Timing/Onset, Context/Setting, Quality, Duration, Modifying Factors, Severity) Note limiting factors. I wore appropriate PPE for the entirety of this encounter. HPI Apoorva Gonzalez is a 72 y.o. female who presents to the emergency department with concern for bleeding, swelling where her Vas-Cath was. Patient had a Vas-Cath placed, while her fistula was being matured. Patient and the Vas-Cath removed yesterday, and went to the dialysis center today to get heparin in the fistula as well as iron infusion. After the heparin she started noticed bleeding from the Vas-Cath wound, as well as some swelling. Denies any fevers or chills or purulent drainage. Denies any overlying skin changes. Nursing Notes were reviewed. Limitations to history: Outside historians: REVIEW OF SYSTEMS Review of Systems PAST MEDICAL HISTORY Past Medical History: Diagnosis Date Chronic kidney disease (CKD) Hemodialysis patient ([facility]) ([facility]) Wednesday, , Wednesday History of blood transfusion 02/27/2022 Hypertension Seizure ([facility]) Developed seizure-like activity on 02/24 during hospital admission SURGICAL HISTORY Past Surgical History: Procedure Laterality Date AV FISTULA PLACEMENT Left 08/07/2022 IR CVC TUNNELED DIALYSIS CATHETER PLACEMENT 02/27/2022 IR CVC TUNNELED CATHETER PLACEMENT 02/27/2022 Candis Andrade MD [facility] SPECIAL PROCEDURES CURRENT MEDICATIONS Previous Medications AMLODIPINE (NORVASC) 5 MG TABLET Take 1 tablet (5 mg) by mouth daily. ASPIRIN 81 MG EC TABLET Take 1 tablet (81 mg) by mouth daily. ATORVASTATIN (LIPITOR) 40 MG TABLET Take 1 tablet (40 mg) by mouth Nightly. CALCIUM ACETATE (PHOSLO) 667 MG TABLET Take 1 tablet by mouth in the morning and 1 tablet at noon and 1 tablet in the evening. Take with meals. CHOLECALCIFEROL (VITAMIN D-3) 125 MCG (5000 UT) CAPSULE Take 5,000 Units by mouth daily. IRON SUCROSE (VENOFER) 20 MG/ML INJECTION Infuse 50 mg into a venous catheter per week. LEVETIRACETAM (KEPPRA) 500 MG TABLET Take 1 tablet (500 mg) by mouth daily. OMEGA-3 (FISH OIL) 1000 MG CAPSULE Take 1,000 mg by mouth daily. THIAMINE HCL (VITAMIN B-1) 250 MG TABLET Take 250 mg by mouth daily. VITAMIN E PO Take by mouth daily. ALLERGIES Patient has no known allergies. FAMILY HISTORY Family History Problem Relation Name Age of Onset Dementia Mother Stroke Father SOCIAL HISTORY Social History Socioeconomic History Marital status: Tobacco Use Smoking status: Never Smokeless tobacco: Never Vaping Use Vaping Use: Never used Substance and Sexual Activity Alcohol use: Yes Alcohol/week: 2.0 standard drinks of alcohol Types: 2 Glasses of wine per week Comment: weekly Drug use: Never Social Determinants of Health Transportation Needs: No Transportation Needs (02/22/2022) PRAPARE - Transportation Lack of Transportation (Medical): No Lack of Transportation (Non-Medical): No Intimate Partner Violence: Not At Risk (08/07/2022) Humiliation, Afraid, Rape, and Kick questionnaire Fear of Current or Ex-Partner: No Emotionally Abused: No Physically Abused: No Sexually Abused: No SCREENINGS PHYSICAL EXAM ED Triage Vitals [10/01/22 1205] Temp Heart Rate Resp BP 36.5 C (97.7 F) 81 14 139/75 SpO2 Temp Source Heart Rate Source Patient Position 98 % Temporal Monitor Sitting BP Location FiO2 (%) Right arm -- Physical Exam Vitals and nursing note reviewed. Constitutional: General: She is not in acute distress. Appearance: She is well-developed. HENT: Head: Normocephalic and atraumatic. Mouth/Throat: Mouth: Mucous membranes are moist. Eyes: Conjunctiva/sclera: Conjunctivae normal. Cardiovascular: Rate and Rhythm: Normal rate and regular rhythm. Heart sounds: No murmur heard. Pulmonary: Effort: Pulmonary effort is normal. No respiratory distress. Breath sounds: Normal breath sounds. Chest: Chest wall: Swelling and tenderness present. Comments: Small wound present in the right upper chest, there is some tenderness superior to this with an area of swelling. No active bleeding on my examination, there is some dried blood around it. There is no cellulitic changes, or purulence. Abdominal: Palpations: Abdomen is soft. Tenderness: There is no abdominal tenderness. Musculoskeletal: General: No swelling. Cervical back: Neck supple. Skin: General: Skin is warm and dry. Capillary Refill: Capillary refill takes less than 2 seconds. Neurological: General: No focal deficit present. Mental Status: She is alert and oriented to person, place, and time. Psychiatric: Mood and Affect: Mood normal. DIAGNOSTIC RESULTS RADIOLOGY (Per Emergency Physician): Interpretation per the Radiologist below, if available at the time of this note: XR chest 1 view Final Result FINDINGS AND IMPRESSION: SUPPORT DEVICES: None OSSEOUS STRUCTURES: Unremarkable. HEART AND MEDIASTINUM: The cardiomediastinal silhouette appears unchanged from the prior exam. LUNGS AND PLEURA: The lungs are clear. No sizable pleural effusion. Report Dictated on Electronically Signed By: London Hollis Electronically Signed Date/Time: 10/01/2022 1:42 PM EDT LABS: Labs Reviewed - No data to display All other labs were within normal range or not returned as of this dictation. EMERGENCY DEPARTMENT COURSE and DIFFERENTIAL DIAGNOSIS/MDM: Vitals: Vitals: 10/01/22 1205 BP: 139/75 BP Location: Right arm Patient Position: Sitting Pulse: 81 Resp: 14 Temp: 36.5 C (97.7 F) TempSrc: Temporal SpO2: 98% Weight: 51.7 kg (114 lb) The patient presented with a chief complaint of bleeding out of her old Vas-Cath wound. Vital signs are normal.. Patient states that she had 2 areas that were swollen on her chest, but have since gone down, after the bleeding stopped. Patient was given heparin this morning by her fistula. Believe that the heparin because of bleeding near the Vas-Cath wound. On my evaluation there is no active bleeding. Area was redressed, chest x-ray was obtained which showed no evidence of acute abnormalities. Patient was instructed to follow-up with doctors and return to the ER if experiencing any worsening symptoms. Patient agreed this plan was discharged. Apoorva Gonzalez and myself have engaged in Shared Decision Making to ensure adequate and appropriate information was provided to Apoorva Gonzalez to assist them in choosing a course of treatment based on their own preferences and concerns. Diagnoses as of 10/01/22 1345 Hematoma Bleeding from wound ED Medications managed: Medications - No data to display Prescription drugs considered: PROCEDURES: Unless otherwise noted below, none Procedures FINAL IMPRESSION 1. Hematoma 2. Bleeding from wound DISPOSITION Discharge 10/01/2022 01:43:40 PM PATIENT REFERRED TO: Christiano Grove DO [address] [facility] [id number] Schedule an appointment as soon as possible for a visit [facility] EMERGENCY DEPT [address] [place] [phone] Go to If symptoms worsen DISCHARGE MEDICATIONS: New Prescriptions No medications on file (Comment: Please note this report has been produced using speech recognition software and may contain errors related to that system including errors in grammar, punctuation, and spelling, as well as words and phrases that may be inappropriate. If there are any questions or concerns please feel free to contact the dictating provider for clarification.) FREDI Sampson (electronically signed) Emergency Medicine Provider FREDI Sampson 10/01/22 1345 documented in this encounter [facility] 10-01-2022 Hospital Discharge instructions FREDI Sampson - 10/01/2022 1:44 PM EDT Follow-up your primary care doctor and return to the ER if you experience any worsening symptoms. documented in this encounter [facility] 10-01-2022 Physician Emergency department Note Emergency Department Encounter [facility] EMERGENCY DEPT Patient: Apoorva Gonzalez : 1950 Date of Evaluation: 10/01/2022 ED Supervising Physician: Mak Hilario MD I independently examined and evaluated Apoorva Gonzalez. This will serve as my Supervisory note and shared attestation. I did perform a substantive portion of the visit including all aspects of the Medical Decision Making. I wore appropriate PPE for the entirety of this encounter. In brief, Apoorva Gonzalez is a 72 y.o. that presents to the emergency department patient has chronic renal failure had Abbass cath while her shunt was getting prepared. Vas-Cath was pulled yesterday she had dialysis which I gave her heparin her Vas-Cath site continues to bleed today. No shortness of breath chest pain Focused exam: Patient alert and orient x4 vital signs are noted. Card pulm exam is normal. The shunt in her left forearm is working fine. Her Vas-Cath site does note some dried blood around it no evidence of cellulitis. Brief ED course/MDM: Get a chest x-ray make sure the lungs okay do wound care dressing should prevent further leakage All diagnostic, treatment, and disposition decisions were made by myself in conjunction with the [facility]. For all further details of the patient's emergency department visit, please see their documentation. (Comment: Please note this report has been produced using speech recognition software and may contain errors related to that system including errors in grammar, punctuation, and spelling, as well as words and phrases that may be inappropriate. If there are any questions or concerns please feel free to contact the dictating provider for clarification.) Mak Hilario MD Acute Care [facility] Mak Hilario MD 10/01/221947 [employer] Phone: 10-01-2022 Physician Emergency department Note Images from the original note were not included. EMERGENCY DEPARTMENT ENCOUNTER Pt Name: Apoorva Gonzalez Birthdate 1950 Date of evaluation: 10/01/2022 ED Provider: FREDI Sampson EDcare was supervised by Dr. Hilario who independently examined and evaluated the patient. Please see their attestation note for further details. CHIEF COMPLAINT No chief complaint on file. HISTORY OF PRESENT ILLNESS (Location/Symptom, Timing/Onset, Context/Setting, Quality, Duration, Modifying Factors, Severity) Note limiting factors. I wore appropriate PPE for the entirety of this encounter. HPI Apoorva Gonzalez is a 72 y.o. female who presents to the emergency department with concern for bleeding, swelling where her Vas-Cath was. Patient had a Vas-Cath placed, while her fistula was being matured. Patient and the Vas-Cath removed yesterday, and went to the dialysis center today to get heparin in the fistula as well as iron infusion. After the heparin she started noticed bleeding from the Vas-Cath wound, as well as some swelling. Denies any fevers or chills or purulent drainage. Denies any overlying skin changes. Nursing Notes were reviewed. Limitations to history: Outside historians: REVIEW OF SYSTEMS Review of Systems PAST MEDICAL HISTORY Past Medical History: Diagnosis Date Chronic kidney disease (CKD) Hemodialysis patient (CMS/HCC) (HCC) Wednesday, , Wednesday History of blood transfusion 02/27/2022 Hypertension Seizure ([facility]) Developed seizure-like activity on 02/24 during hospital admission SURGICAL HISTORY Past Surgical History: Procedure Laterality Date AV FISTULA PLACEMENT Left 08/07/2022 IR CVC TUNNELED DIALYSIS CATHETER PLACEMENT 02/27/2022 IR CVC TUNNELED CATHETER PLACEMENT 02/27/2022 Candis Andrade MD [facility] SPECIAL PROCEDURES CURRENT MEDICATIONS Previous Medications AMLODIPINE (NORVASC) 5 MG TABLET Take 1 tablet (5 mg) by mouth daily. ASPIRIN 81 MG EC TABLET Take 1 tablet (81 mg) by mouth daily. ATORVASTATIN (LIPITOR) 40 MG TABLET Take 1 tablet (40 mg) by mouth Nightly. CALCIUM ACETATE (PHOSLO) 667 MG TABLET Take 1 tablet by mouth in the morning and 1 tablet at noon and 1 tablet in the evening. Take with meals. CHOLECALCIFEROL (VITAMIN D-3) 125 MCG (5000 UT) CAPSULE Take 5,000 Units by mouth daily. IRON SUCROSE (VENOFER) 20 MG/ML INJECTION Infuse 50 mg into a venous catheter per week. LEVETIRACETAM (KEPPRA) 500 MG TABLET Take 1 tablet (500 mg) by mouth daily. OMEGA-3 (FISH OIL) 1000 MG CAPSULE Take 1,000 mg by mouth daily. THIAMINE HCL (VITAMIN B-1) 250 MG TABLET Take 250 mg by mouth daily. VITAMIN E PO Take by mouth daily. ALLERGIES Patient has no known allergies. FAMILY HISTORY Family History Problem Relation Name Age of Onset Dementia Mother Stroke Father SOCIAL HISTORY Social History Socioeconomic History Marital status: Tobacco Use Smoking status: Never Smokeless tobacco: Never Vaping Use Vaping Use: Never used Substance and Sexual Activity Alcohol use: Yes Alcohol/week: 2.0 standard drinks of alcohol Types: 2 Glasses of wine per week Comment: weekly Drug use: Never Social Determinants of Health Transportation Needs: No Transportation Needs (02/22/2022) PRAPARE - Transportation Lack of Transportation (Medical): No Lack of Transportation (Non-Medical): No Intimate Partner Violence: Not At Risk (08/07/2022) Humiliation, Afraid, Rape, and Kick questionnaire Fear of Current or Ex-Partner: No Emotionally Abused: No Physically Abused: No Sexually Abused: No SCREENINGS PHYSICAL EXAM ED Triage Vitals [10/01/22 1205] Temp Heart Rate Resp BP 36.5 C (97.7 F) 81 14 139/75 SpO2 Temp Source Heart Rate Source Patient Position 98 % Temporal Monitor Sitting BP Location FiO2 (%) Right arm -- Physical Exam Vitals and nursing note reviewed. Constitutional: General: She is not in acute distress. Appearance: She is well-developed. HENT: Head: Normocephalic and atraumatic. Mouth/Throat: Mouth: Mucous membranes are moist. Eyes: Conjunctiva/sclera: Conjunctivae normal. Cardiovascular: Rate and Rhythm: Normal rate and regular rhythm. Heart sounds: No murmur heard. Pulmonary: Effort: Pulmonary effort is normal. No respiratory distress. Breath sounds: Normal breath sounds. Chest: Chest wall: Swelling and tenderness present. Comments: Small wound present in the right upper chest, there is some tenderness superior to this with an area of swelling. No active bleeding on my examination, there is some dried blood around it. There is no cellulitic changes, or purulence. Abdominal: Palpations: Abdomen is soft. Tenderness: There is no abdominal tenderness. Musculoskeletal: General: No swelling. Cervical back: Neck supple. Skin: General: Skin is warm and dry. Capillary Refill: Capillary refill takes less than 2 seconds. Neurological: General: No focal deficit present. Mental Status: She is alert and oriented to person, place, and time. Psychiatric: Mood and Affect: Mood normal. DIAGNOSTIC RESULTS RADIOLOGY (Per Emergency Physician): Interpretation per the Radiologist below, if available at the time of this note: XR chest 1 view Final Result FINDINGS AND IMPRESSION: SUPPORT DEVICES: None OSSEOUS STRUCTURES: Unremarkable. HEART AND MEDIASTINUM: The cardiomediastinal silhouette appears unchanged from the prior exam. LUNGS AND PLEURA: The lungs are clear. No sizable pleural effusion. Report Dictated on Electronically Signed By: London Hollis Electronically Signed Date/Time: 10/01/2022 1:42 PM EDT LABS: Labs Reviewed - No data to display All other labs were within normal range or not returned as of this dictation. EMERGENCY DEPARTMENT COURSE and DIFFERENTIAL DIAGNOSIS/MDM: Vitals: Vitals: 10/01/22 1205 BP: 139/75 BP Location: Right arm Patient Position: Sitting Pulse: 81 Resp: 14 Temp: 36.5 C (97.7 F) TempSrc: Temporal SpO2: 98% Weight: 51.7 kg (114 lb) The patient presented with a chief complaint of bleeding out of her old Vas-Cath wound. Vital signs are normal.. Patient states that she had 2 areas that were swollen on her chest, but have since gone down, after the bleeding stopped. Patient was given heparin this morning by her fistula. Believe that the heparin because of bleeding near the Vas-Cath wound. On my evaluation there is no active bleeding. Area was redressed, chest x-ray was obtained which showed no evidence of acute abnormalities. Patient was instructed to follow-up with doctors and return to the ER if experiencing any worsening symptoms. Patient agreed this plan was discharged. Apoorva Gonzalez and myself have engaged in Shared Decision Making to ensure adequate and appropriate information was provided to Apoorva Gonzalez to assist them in choosing a course of treatment based on their own preferences and concerns. Diagnoses as of 10/01/22 1345 Hematoma Bleeding from wound ED Medications managed: Medications - No data to display Prescription drugs considered: PROCEDURES: Unless otherwise noted below, none Procedures FINAL IMPRESSION 1. Hematoma 2. Bleeding from wound DISPOSITION Discharge 10/01/2022 01:43:40 PM PATIENT REFERRED TO: Christiano Grove DO [address] [facility] [address] Schedule an appointment as soon as possible for a visit [facility] EMERGENCY DEPT [address] [place] [phone] Go to If symptoms worsen DISCHARGE MEDICATIONS: New Prescriptions No medications on file (Comment: Please note this report has been produced using speech recognition software and may contain errors related to that system including errors in grammar, punctuation, and spelling, as well as words and phrases that may be inappropriate. If there are any questions or concerns please feel free to contact the dictating provider for clarification.) FREDI Sampson (electronically signed) Emergency Medicine Provider FREDI Sampson 10/01/22 6465 [facility] 10-01-2022 Note Formatting of this n ote might be different from the original. Dwain, nurse from [facility] called d/t to patient having tunneled dialysis catheter removal on 09-30-22 and c/o small bubble approx. 2 above insertion site which feels better when she applies pressure. Site is not discolored and no swelling noted per dialysis nurse. I did discuss with Dr. Christian Glynn. Aware to continue to monitor site, if develops fever, purulent drainage, area increases in size, and/or bleeding or bruising to call her physician and/or be seen emergency dept. [facility] 10-01-2022 Miscellaneous Notes Dwain nurse from [facility] called d/t to patient having tunneled dialysis catheter removal on 09-30-22 and c/o small bubble approx. 2 above insertion site which feels better when she applies pressure. Site is not discolored and no swelling noted per dialysis nurse. I did discuss with Dr. Christian Glynn. Aware to continue to monitor site, if develops fever, purulent drainage, area increases in size, and/or bleeding or bruising to call her physician and/or be seen emergency dept. documented in this encounter [facility] 09-30-2022 Nurse Note Tunneled HD catheter cleansed with betadine and removed from pt RIJ. 14fr x 24cm. Pt followed breathing instructions and tolerated well. Pressure held x10 min. Discharged home with all belongings, steady, independent gait. [facility] 09-30-2022 Nurse Note Tunneled HD catheter cleansed with betadine and removed from pt RIJ. 14fr x 24cm. Pt followed breathing instructions and tolerated well. Pressure held x10 min. Discharged home with all belongings, steady, independent gait. documented in this encounter [facility] 08-07-2022 Hospital Discharge instructions Arthur Medrano MD - 08/07/2022 10:32 AM EDT Fistula/Graft Home Going Instructions After Surgery: Your surgeon will give you specific instructions to follow, however, in general follow the steps listed below upon discharge. You may experience bruising, swelling, and discomfort in your leg(s). These symptoms can be expected. Pain medication will be prescribed at discharge. Keep the arm extended and elevated at the level of your heart. Place the arm on a pillow when lying down and when sitting. AVOID putting any pressure on the arm or swinging the arm. Rest, follow your diet, and take your prescription medications. Your surgeon may advise you to perform specific exercise, like squeezing a rubber ball, if so remember to do so. Incision Care: Keep the incision area clean and dry After 48 hours you may remove all the dressings except the Steri-strips directly over the incision; leave these intact. If Steri-Strips are directly over each incision, these may being to peel off at which time you may trim or remove them. If you are not currently on dialysis, you may bathe, allowing soap and water to clean the incision area, do not scrub. If you prefer, you may keep a clean bandage over the incision site to keep it from rubbing on clothes to prevent irritation. Look at the incisions daily to become familiar with any changes or concerns. After the swelling has gone down, you will be able to see the faint outline of the graft in your arm. By placing your fingertips over the graft, you will be able to feel the vibration (thrill) that indicates blood is flowing. Pain Medication: You will be prescribed pain medication after your procedure at the time of discharge. Take as prescribed. Do Not Drive while taking a prescription pain medication. Please note that constipation is a side effect of prescription pain medication and using a stool softener may reduce constipation. Call a day prior to running out of pain medication. There will be NO REFILLS on pain medication after office hours (M-F 8:30a-5:00p). Have your medication bottle available to confirm medication, dosage, and Rx number and phone number of the pharmacy. Follow-Up: The office nurse will try to call you the day after your surgery to schedule your 2 week follow-up appointment. Please call the office if you do not hear from the office nurse. When to call the Doctor: If you have an increase in swelling after the initial 48 hours Redness Bleeding Foul odor from the incision site. Coldness or numbness/weakness to the hand or fingers. Please call the office if you experience these symptoms or have any questions or concerns! documented in this encounter [facility] 08-07-2022 Attending History and physical note H&P reviewed. The patient was examined and there are no changes to the H&P. Plan for left upper extremity arteriovenous graft placement. Risks have been discussed with the patient at her pre-operative visit. We discussed the risks involved in creation of the AVG including the risks of bleeding, infection, damage to surrounding structures such as the nerves resulting in numbness, dialysis access steal syndrome, development or worsening of heart failure, and myocardial infarction. She has elected to proceed. The consent form has been signed. Source Note - Mary Wilkinson RADIATION ONCOLOGIST - AGENCY TRAINER - 07/10/2022 12:30 PM EDT Images from the original note were not included. Comprehensive PreSurgical History and Physical ? Name: Apoorva Gonzalez : 1950 (Age-72 y.o.) Date of Service: Pt seen/examined on 07/10/2022 Procedure Information Date/Time: 07/17/22 1130 Procedure: LEFT UPPER EXTREMITY ARTERIOVENOUS GRAFT PLACEMENT (Left) Location: [facility] OR Operating Room Surgeons: Raffy Fernandez MD Chief Complaint: Dependence on renal dialysis End stage renal disease History Of Present Illness: 72 y.o. female who we are asked to see/evaluate by Dr. Fernandez for pre-operative evaluation prior to above procedure . ? Denies history of MA, CHF, TIA, CVA Past Medical History: Past Medical History: No date: Chronic kidney disease (CKD) No date: Hemodialysis patient ([facility]) ([facility]) Comment: Wednesday, , Wednesday02/27/2022: History of blood transfusion No date: Hypertension No date: Seizure ([facility]) Comment: Developed seizure-like activity on 02/24 during hospital admission Past Surgical History: Past Surgical History: 02/27/2022: IR CVC TUNNELED DIALYSIS CATHETER PLACEMENT Comment: IR CVC TUNNELED CATHETER PLACEMENT 02/27/2022 Candis Andrade MD [facility] SPECIAL PROCEDURES Medications Prior to Admission: Prior to Admission medications Medication Sig Start Date End Date Taking? Authorizing Provider amLODIPine (Norvasc) 5 MG tablet Take 1 tablet (5 mg) by mouth daily. Patient taking differently: Take 10 mg by mouth daily. 03/02/22 03/02/23 Yes PARK Lipscomb CNP calcium acetate (Phoslo) 667 MG tablet Take 1 tablet by mouth in the morning and 1 tablet at noon and 1 tablet in the evening. Take with meals. 07/01/22 Yes Historical Provider, iron sucrose (Venofer) 20 MG/ML injection Infuse 50 mg into a venous catheter per week. 04/14/22 04/06/23 Yes Historical Provider, VITAMIN E PO Take by mouth daily. Yes Historical Provider, aspirin 81 MG EC tablet Take 1 tablet (81 mg) by mouth daily. Patient not taking: Reported on 07/10/2022 03/02/22 03/02/23 PARK Lipscomb CNP atorvastatin (Lipitor) 40 MG tablet Take 1 tablet (40 mg) by mouth Nightly. Patient not taking: Reported on 07/10/2022 03/02/22 03/02/23 PARK Lipscomb CNP cholecalciferol (Vitamin D-3) 125 MCG (5000 UT) capsule Take 5,000 Units by mouth daily. Historical Provider, levETIRAcetam (Keppra) 500 MG tablet Take 1 tablet (500 mg) by mouth daily. 03/02/22 04/01/22 Evan Joshua RADIATION ONCOLOGIST - AGENCY TRAINER omega-3 (Fish Oil) 1000 MG capsule Take 1,000 mg by mouth daily. Historical Provider, Thiamine HCl (vitamin B-1) 250 MG tablet Take 250 mg by mouth daily. Historical Provider, CHRONIC NARCOTIC USE: No Allergies: Patient has no known allergies. Can the patient take acetaminophen: Yes Social History: TOBACCO: reports that she has never smoked. She has never used smokeless tobacco. ETOH: reports current alcohol use of about 2.0 standard drinks per week. Social History Substance and Sexual Activity Drug Use Never Family History: Family History Problem Relation Name Age of Onset Dementia Mother Stroke Father REVIEW OF SYSTEMS: Review of Systems Constitutional: Negative for chills and fever. HENT: Negative for trouble swallowing. Respiratory: Negative for cough and shortness of breath. Cardiovascular: Negative for chest pain and leg swelling. Gastrointestinal: Negative for abdominal pain, nausea and vomiting. Skin: Negative for rash. Neurological: Negative for seizures and weakness. Physical Exam: Physical Exam Constitutional: Appearance: Normal appearance. HENT: Head: Normocephalic and atraumatic. Mouth/Throat: Mouth: Mucous membranes are moist. Pharynx: Oropharynx is clear. Eyes: Pupils: Pupils are equal, round, and reactive to light. Cardiovascular: Rate and Rhythm: Normal rate. Pulses: Normal pulses. Pulmonary: Effort: Pulmonary effort is normal. Abdominal: General: Bowel sounds are normal. Musculoskeletal: General: Normal range of motion. Cervical back: Normal range of motion. Skin: General: Skin is warm and dry. Capillary Refill: Capillary refill takes less than 2 seconds. Neurological: General: No focal deficit present. Mental Status: She is alert and oriented to person, place, and time. Psychiatric: Behavior: Behavior normal. Vitals: Vitals Value Taken Time BP 154/83 07/10/22 1253 Temp 36.4 C (97.5 F) 07/10/22 1253 Pulse 91 07/10/22 1253 Resp 12 07/10/22 1253 SpO2 99 % 07/10/22 1253 Labs: Ordered per PAT protocol Juarez's Simple Cardiac Risk Index: JUAREZ'S SIMPLE CARDIAC RISK SCORE: 3 Interpretation: 0 Points Class I 0.5% 1 Point Class II 1.3% 2 Points Class III 3.6% 3+ Points Class IV 9.1% METS >4 METS (Able to climb a flight of stairs with no chest pain or shortness of breath): Yes PAT Pain Score: Postop Pain Management Plan (Pain consult ordered?): Pain consult not indicated at this time ? EKG: completed 02/2022 ( sinus tachy at 106) ECHO and EF:Echo 02/27/22 ASSESSMENT/PLAN: Patient is considered intermediate risk for this intermediate risk procedure/surgery () with no reducible risk factors. Based on the above evaluation, the benefits of the planned procedure likely exceed the risks. The patient is medically optimized to proceed with the planned procedure without any further cardiopulmonary testing. 1) Dependence on renal dialysis End stage renal disease - Managed per surgery Currently has right chest port and dialysis T-TH-S Phoslo Venofer Labs ordered 2) Hx seizure (one time in February 2022) Pt reports from hypertensive crisis No longer taking Keppra for the past 2-3 months 3) CAD/ HTN No longer taking Lipitor or Norvasc Talked to pt about her BP being elevated here in PAT today- she reports she will talk to her PCP Visit Type: Pre-Admission Testing Visit Labs Ordered: YES - PER PAT PROTOCOL Sleep Referral Ordered: NO - NEGATIVE SCREEN PER SLEEP REFERRAL PROTOCOL Electronically signed by: PARK Ferrell CNP Date: 07/10/2022 at 1:05 PM PAT Protocol referenced includes: 1. Anesthesia Lab Protocol Orders 2. Perioperative Cardiovascular Risk Assessment 3. Anesthesia Assessment 4. Pain Assessment and Acute Pain Service Consult (if appropriate) 5. Medical Clearance/Consult from Internal Medicine ([facility]) 6. Shower/Wash Order (for designated surgeries) 7. [place]ORE[place] Screen and Sleep Clinic Referral (if appropriate) [email or web address] Phone: 08-07-2022 Note Formatting of this n ote might be different from the original. OPERATIVE REPORT DATE OF SERVICE: 08/07/2022 PRE-PROCEDURE DIAGNOSIS: End Stage Renal Disease on Hemodialysis POST-PROCEDURE DIAGNOSIS: As above PROCEDURE PERFORMED: Left upper extremity brachial artery to axillary vein arteriovenous graft placement with 4-7 mm Propaten graft SURGEON: Raffy Fernandez MD ASSISTANTS: Kailyn Hodgson APRN-TAMIR and Arthur Medrano MD (PGY-5) FINDINGS: Palpable thrill present in graft at the conclusion of the case as well as a palpable left radial pulse. ANESTHESIA: General ESTIMATED BLOOD LOSS: 50 ml COMPLICATIONS: None SPECIMENS: None IMPLANTS: 4-7 mm Propaten PTFE graft WOUND CLASS: 1 INDICATIONS FOR PROCEDURE: The patient is a 72 yo female who presents today for creation of permanent hemodialysis access. Pre-operative vein mapping suggests no suitable vein for creation of an autologous fistula therefore placement of an arteriovenous graft was recommended. Risks, benefits, and alternatives were discussed with the patient and she elected to proceed. PROCEDURE IN DETAIL: The patient was taken to the operating room and placed in the supine position with the left arm extended. General anesthesia was induced. Perioperative antibiotics were administered. The patient's left upper extremity was then prepped and draped in the usual sterile fashion. A timeout was performed verifying the correct patient, side, site, and procedure to be performed. Intraoperative ultrasound was performed to samra the approximate location of the axillary vein as well as brachial artery. A longitudinal incision was made just above the antecubital fossa overlying the brachial artery using a 10 blade scalpel. Dissection was carried down through the subcutaneous tissues using electrocautery. The muscular fascia was encountered and incised. The brachial artery was then identified and cleared of surrounding tissues using Metzenbaum scissors. Silastic Vesseloops were placed both proximally and distally in order to obtain control. We next turned our attention to the axillary vein. A longitudinal incision was made overlying the patient's axillary vein. Dissection was carried down through the subcutaneous tissues using electrocautery. The vein was identified and cleared of surrounding tissues using Metzenbaum scissors. Next, using a ingrid tunneler, a subcutaneous tunnel was created extending from the axillary incision to the brachial artery incision. At this point, the patient was given 5000 units of heparin for anticoagulation. A 4 to 7 mm propatent graft was then placed through the tunnel with a 7 mm portion at the axillary vein incision and the 4 mm portion at the brachial artery incision. The tunneler was then removed. 3 minutes following heparin administration, proximal and distal control was obtained of the brachial artery using the previously placed Silastic Vesseloops. Using 11 blade scalpel, an arteriotomy was created in the anterior surface of the brachial artery and extended using Monzon scissors. This is done for a length of approximately 4 mm. A small sidebranch was clipped as there continued to be bleeding into the arteriotomy. Heparinized saline was flushed both proximally and distally for local anticoagulation. Using 6-0 Prolene suture in a running fashion, an anastomosis was then created between the 4 mm portion of the propatent graft and the brachial artery in an end to side fashion. Following completion of the anastomosis, inflow was restored through the brachial artery followed by outflow to the brachial artery and a graft clamp was placed proximally just above the anastomosis. Nu-Knit was placed around the anastomosis. Prior to clamping there was pulsatility present in the AVG. The clip was removed from the small side branch. Next we turned our attention to the venous anastomosis, a small bulldog clamp was placed proximally and a silastic vessel loop was placed distally on the axillary vein. Using 11 blade scalpel, a venotomy was created in the anterior surface of the axillary vein and extended using Monzon scissors for approximately 2 cm. The 7 mm portion of the graft was then cut and beveled to meet the venotomy. Using 6-0 Prolene suture in a running fashion, an anastomosis created between the 7 mm portion of the graft and the axillary vein. Prior to completion of the anastomosis, backbleeding through the venous system as well as inflow through the graft were allowed in order to vent to the graft and vein of air and debris. The anastomosis was then completed. Outflow was then restored followed by inflow through the graft and outflow through the distal axillary vein. Once flow was restored, the graft was inspected. A palpable thrill was present throughout the graft and the arteriovenous Doppler signal was present in the axillary vein proximal to the venous anastomosis. The radial pulse remained palpable. Hemostasis was achieved. We then proceeded with closure. At the axillary incision, 3-0 Vicryl suture was placed to reapproximate the axillary fascia. 3-0 Vicryl deep dermal sutures were then placed followed by a running 4-0 Monocryl subcuticular suture at the skin. At the brachial artery incision, 3-0 vicryl deep dermal sutures were placed followed by a running 4-0 Monocryl subcuticular suture at the skin. Dermabond skin glue was placed. All sponge and needle counts were correct at the conclusion of the case. The patient was awakened from general anesthesia and transferred to the recovery area in stable condition. A palpable thrill remained present throughout the graft and the left radial pulse remained palpable. Raffy Fernandez MD Vascular Surgery [facility] 08-07-2022 Note Formatting of this n ote might be different from the original. OPERATIVE REPORT DATE OF SERVICE: 08/07/2022 PRE-PROCEDURE DIAGNOSIS: End Stage Renal Disease on Hemodialysis POST-PROCEDURE DIAGNOSIS: As above PROCEDURE PERFORMED: Left upper extremity brachial artery to axillary vein arteriovenous graft placement with 4-7 mm Propaten graft SURGEON: Raffy Fernandez MD ASSISTANTS: Kailyn Hodgson APRN-TAMIR and Arthur Medrano MD (PGY-5) FINDINGS: Palpable thrill present in graft at the conclusion of the case as well as a palpable left radial pulse. ANESTHESIA: General ESTIMATED BLOOD LOSS: 50 ml COMPLICATIONS: None SPECIMENS: None IMPLANTS: 4-7 mm Propaten PTFE graft WOUND CLASS: 1 INDICATIONS FOR PROCEDURE: The patient is a 72 yo female who presents today for creation of permanent hemodialysis access. Pre-operative vein mapping suggests no suitable vein for creation of an autologous fistula therefore placement of an arteriovenous graft was recommended. Risks, benefits, and alternatives were discussed with the patient and she elected to proceed. PROCEDURE IN DETAIL: The patient was taken to the operating room and placed in the supine position with the left arm extended. General anesthesia was induced. Perioperative antibiotics were administered. The patient's left upper extremity was then prepped and draped in the usual sterile fashion. A timeout was performed verifying the correct patient, side, site, and procedure to be performed. Intraoperative ultrasound was performed to samra the approximate location of the axillary vein as well as brachial artery. A longitudinal incision was made just above the antecubital fossa overlying the brachial artery using a 10 blade scalpel. Dissection was carried down through the subcutaneous tissues using electrocautery. The muscular fascia was encountered and incised. The brachial artery was then identified and cleared of surrounding tissues using Metzenbaum scissors. Silastic Vesseloops were placed both proximally and distally in order to obtain control. We next turned our attention to the axillary vein. A longitudinal incision was made overlying the patient's axillary vein. Dissection was carried down through the subcutaneous tissues using electrocautery. The vein was identified and cleared of surrounding tissues using Metzenbaum scissors. Next, using a ingrid tunneler, a subcutaneous tunnel was created extending from the axillary incision to the brachial artery incision. At this point, the patient was given 5000 units of heparin for anticoagulation. A 4 to 7 mm propatent graft was then placed through the tunnel with a 7 mm portion at the axillary vein incision and the 4 mm portion at the brachial artery incision. The tunneler was then removed. 3 minutes following heparin administration, proximal and distal control was obtained of the brachial artery using the previously placed Silastic Vesseloops. Using 11 blade scalpel, an arteriotomy was created in the anterior surface of the brachial artery and extended using Monzon scissors. This is done for a length of approximately 4 mm. A small sidebranch was clipped as there continued to be bleeding into the arteriotomy. Heparinized saline was flushed both proximally and distally for local anticoagulation. Using 6-0 Prolene suture in a running fashion, an anastomosis was then created between the 4 mm portion of the propatent graft and the brachial artery in an end to side fashion. Following completion of the anastomosis, inflow was restored through the brachial artery followed by outflow to the brachial artery and a graft clamp was placed proximally just above the anastomosis. Nu-Knit was placed around the anastomosis. Prior to clamping there was pulsatility present in the AVG. The clip was removed from the small side branch. Next we turned our attention to the venous anastomosis, a small bulldog clamp was placed proximally and a silastic vessel loop was placed distally on the axillary vein. Using 11 blade scalpel, a venotomy was created in the anterior surface of the axillary vein and extended using Monzon scissors for approximately 2 cm. The 7 mm portion of the graft was then cut and beveled to meet the venotomy. Using 6-0 Prolene suture in a running fashion, an anastomosis created between the 7 mm portion of the graft and the axillary vein. Prior to completion of the anastomosis, backbleeding through the venous system as well as inflow through the graft were allowed in order to vent to the graft and vein of air and debris. The anastomosis was then completed. Outflow was then restored followed by inflow through the graft and outflow through the distal axillary vein. Once flow was restored, the graft was inspected. A palpable thrill was present throughout the graft and the arteriovenous Doppler signal was present in the axillary vein proximal to the venous anastomosis. The radial pulse remained palpable. Hemostasis was achieved. We then proceeded with closure. At the axillary incision, 3-0 Vicryl suture was placed to reapproximate the axillary fascia. 3-0 Vicryl deep dermal sutures were then placed followed by a running 4-0 Monocryl subcuticular suture at the skin. At the brachial artery incision, 3-0 vicryl deep dermal sutures were placed followed by a running 4-0 Monocryl subcuticular suture at the skin. Dermabond skin glue was placed. All sponge and needle counts were correct at the conclusion of the case. The patient was awakened from general anesthesia and transferred to the recovery area in stable condition. A palpable thrill remained present throughout the graft and the left radial pulse remained palpable. Raffy Fernandez MD Vascular Surgery [facility] 08-07-2022 History and physical note H&P reviewed. The patient was examined and there are no changes to the H&P. Plan for left upper extremity arteriovenous graft placement. Risks have been discussed with the patient at her pre-operative visit. We discussed the risks involved in creation of the AVG including the risks of bleeding, infection, damage to surrounding structures such as the nerves resulting in numbness, dialysis access steal syndrome, development or worsening of heart failure, and myocardial infarction. She has elected to proceed. The consent form has been signed. Source Note - Mary Wilkinson APRN - AGENCY TRAINER - 07/10/2022 12:30 PM EDT Images from the original note were not included. Comprehensive PreSurgical History and Physical ? Name: Apoorva Gonzalez : 1950 (Age-72 y.o.) Date of Service: Pt seen/examined on 07/10/2022 Procedure Information Date/Time: 07/17/22 1130 Procedure: LEFT UPPER EXTREMITY ARTERIOVENOUS GRAFT PLACEMENT (Left) Location: [facility] Operating Room Surgeons: Raffy Fernandez MD Chief Complaint: Dependence on renal dialysis End stage renal disease History Of Present Illness: 72 y.o. female who we are asked to see/evaluate by Dr. Fernandez for pre-operative evaluation prior to above procedure . ? Denies history of MA, CHF, TIA, CVA Past Medical History: Past Medical History: No date: Chronic kidney disease (CKD) No date: Hemodialysis patient ([facility]) ([facility]) Comment: Wednesday, , Wednesday02/27/2022: History of blood transfusion No date: Hypertension No date: Seizure ([facility]) Comment: Developed seizure-like activity on 02/24 during hospital admission Past Surgical History: Past Surgical History: 02/27/2022: IR CVC TUNNELED DIALYSIS CATHETER PLACEMENT Comment: IR CVC TUNNELED CATHETER PLACEMENT 02/27/2022 Candis Andrade MD [facility] SPECIAL PROCEDURES Medications Prior to Admission: Prior to Admission medications Medication Sig Start Date End Date Taking? Authorizing Provider amLODIPine (Norvasc) 5 MG tablet Take 1 tablet (5 mg) by mouth daily. Patient taking differently: Take 10 mg by mouth daily. 03/02/22 03/02/23 Yes PARK Lipscomb CNP calcium acetate (Phoslo) 667 MG tablet Take 1 tablet by mouth in the morning and 1 tablet at noon and 1 tablet in the evening. Take with meals. 07/01/22 Yes Historical Provider, iron sucrose (Venofer) 20 MG/ML injection Infuse 50 mg into a venous catheter per week. 04/14/22 04/06/23 Yes Historical Provider, VITAMIN E PO Take by mouth daily. Yes Historical Provider, aspirin 81 MG EC tablet Take 1 tablet (81 mg) by mouth daily. Patient not taking: Reported on 07/10/2022 03/02/22 03/02/23 PARK Lipscomb CNP atorvastatin (Lipitor) 40 MG tablet Take 1 tablet (40 mg) by mouth Nightly. Patient not taking: Reported on 07/10/2022 03/02/22 03/02/23 PARK Lipscomb CNP cholecalciferol (Vitamin D-3) 125 MCG (5000 UT) capsule Take 5,000 Units by mouth daily. Historical Provider, levETIRAcetam (Keppra) 500 MG tablet Take 1 tablet (500 mg) by mouth daily. 03/02/22 04/01/22 Evan Joshua, RADIATION ONCOLOGIST - AGENCY TRAINER omega-3 (Fish Oil) 1000 MG capsule Take 1,000 mg by mouth daily. Historical Provider, Thiamine HCl (vitamin B-1) 250 MG tablet Take 250 mg by mouth daily. Historical Provider, CHRONIC NARCOTIC USE: No Allergies: Patient has no known allergies. Can the patient take acetaminophen: Yes Social History: TOBACCO: reports that she has never smoked. She has never used smokeless tobacco. ETOH: reports current alcohol use of about 2.0 standard drinks per week. Social History Substance and Sexual Activity Drug Use Never Family History: Family History Problem Relation Name Age of Onset Dementia Mother Stroke Father REVIEW OF SYSTEMS: Review of Systems Constitutional: Negative for chills and fever. HENT: Negative for trouble swallowing. Respiratory: Negative for cough and shortness of breath. Cardiovascular: Negative for chest pain and leg swelling. Gastrointestinal: Negative for abdominal pain, nausea and vomiting. Skin: Negative for rash. Neurological: Negative for seizures and weakness. Physical Exam: Physical Exam Constitutional: Appearance: Normal appearance. HENT: Head: Normocephalic and atraumatic. Mouth/Throat: Mouth: Mucous membranes are moist. Pharynx: Oropharynx is clear. Eyes: Pupils: Pupils are equal, round, and reactive to light. Cardiovascular: Rate and Rhythm: Normal rate. Pulses: Normal pulses. Pulmonary: Effort: Pulmonary effort is normal. Abdominal: General: Bowel sounds are normal. Musculoskeletal: General: Normal range of motion. Cervical back: Normal range of motion. Skin: General: Skin is warm and dry. Capillary Refill: Capillary refill takes less than 2 seconds. Neurological: General: No focal deficit present. Mental Status: She is alert and oriented to person, place, and time. Psychiatric: Behavior: Behavior normal. Vitals: Vitals Value Taken Time BP 154/83 07/10/22 1253 Temp 36.4 C (97.5 F) 07/10/22 1253 Pulse 91 07/10/22 1253 Resp 12 07/10/22 1253 SpO2 99 % 07/10/22 1253 Labs: Ordered per PAT protocol Juarez's Simple Cardiac Risk Index: JUAREZ'S SIMPLE CARDIAC RISK SCORE: 3 Interpretation: 0 Points Class I 0.5% 1 Point Class II 1.3% 2 Points Class III 3.6% 3+ Points Class IV 9.1% METS >4 METS (Able to climb a flight of stairs with no chest pain or shortness of breath): Yes PAT Pain Score: Postop Pain Management Plan (Pain consult ordered?): Pain consult not indicated at this time ? EKG: completed 02/2022 ( sinus tachy at 106) ECHO and EF:Echo 02/27/22 ASSESSMENT/PLAN: Patient is considered intermediate risk for this intermediate risk procedure/surgery () with no reducible risk factors. Based on the above evaluation, the benefits of the planned procedure likely exceed the risks. The patient is medically optimized to proceed with the planned procedure without any further cardiopulmonary testing. 1) Dependence on renal dialysis End stage renal disease - Managed per surgery Currently has right chest port and dialysis T-TH- Phoslo Venofer Labs ordered 2) Hx seizure (one time in February 2022) Pt reports from hypertensive crisis No longer taking Keppra for the past 2-3 months 3) CAD/ HTN No longer taking Lipitor or Norvasc Talked to pt about her BP being elevated here in PAT today- she reports she will talk to her PCP Visit Type: Pre-Admission Testing Visit Labs Ordered: YES - PER PAT PROTOCOL Sleep Referral Ordered: NO - NEGATIVE SCREEN PER SLEEP REFERRAL PROTOCOL Electronically signed by: PARK Ferrell CNP Date: 07/10/2022 at 1:05 PM PAT Protocol referenced includes: 1. Anesthesia Lab Protocol Orders 2. Perioperative Cardiovascular Risk Assessment 3. Anesthesia Assessment 4. Pain Assessment and Acute Pain Service Consult (if appropriate) 5. Medical Clearance/Consult from Internal Medicine (IMS) 6. Shower/Wash Order (for designated surgeries) 7. KOREY Screen and Sleep Clinic Referral (if appropriate) documented in this encounter [facility] 08-07-2022 Miscellaneous Notes OPERATIVE REPORT DATE OF SERVICE: 08/07/2022 PRE-PROCEDURE DIAGNOSIS: End Stage Renal Disease on Hemodialysis POST-PROCEDURE DIAGNOSIS: As above PROCEDURE PERFORMED: Left upper extremity brachial artery to axillary vein arteriovenous graft placement with 4-7 mm Propaten graft SURGEON: Raffy Fernandez MD ASSISTANTS: MAYANK Matthews and Arthur Medrano MD (PGY-5) FINDINGS: Palpable thrill present in graft at the conclusion of the case as well as a palpable left radial pulse. ANESTHESIA: General ESTIMATED BLOOD LOSS: 50 ml COMPLICATIONS: None SPECIMENS: None IMPLANTS: 4-7 mm Propaten PTFE graft WOUND CLASS: 1 INDICATIONS FOR PROCEDURE: The patient is a 72 yo female who presents today for creation of permanent hemodialysis access. Pre-operative vein mapping suggests no suitable vein for creation of an autologous fistula therefore placement of an arteriovenous graft was recommended. Risks, benefits, and alternatives were discussed with the patient and she elected to proceed. PROCEDURE IN DETAIL: The patient was taken to the operating room and placed in the supine position with the left arm extended. General anesthesia was induced. Perioperative antibiotics were administered. The patient's left upper extremity was then prepped and draped in the usual sterile fashion. A timeout was performed verifying the correct patient, side, site, and procedure to be performed. Intraoperative ultrasound was performed to samra the approximate location of the axillary vein as well as brachial artery. A longitudinal incision was made just above the antecubital fossa overlying the brachial artery using a 10 blade scalpel. Dissection was carried down through the subcutaneous tissues using electrocautery. The muscular fascia was encountered and incised. The brachial artery was then identified and cleared of surrounding tissues using Metzenbaum scissors. Silastic Vesseloops were placed both proximally and distally in order to obtain control. We next turned our attention to the axillary vein. A longitudinal incision was made overlying the patient's axillary vein. Dissection was carried down through the subcutaneous tissues using electrocautery. The vein was identified and cleared of surrounding tissues using Metzenbaum scissors. Next, using a ingrid tunneler, a subcutaneous tunnel was created extending from the axillary incision to the brachial artery incision. At this point, the patient was given 5000 units of heparin for anticoagulation. A 4 to 7 mm propatent graft was then placed through the tunnel with a 7 mm portion at the axillary vein incision and the 4 mm portion at the brachial artery incision. The tunneler was then removed. 3 minutes following heparin administration, proximal and distal control was obtained of the brachial artery using the previously placed Silastic Vesseloops. Using 11 blade scalpel, an arteriotomy was created in the anterior surface of the brachial artery and extended using Monzon scissors. This is done for a length of approximately 4 mm. A small sidebranch was clipped as there continued to be bleeding into the arteriotomy. Heparinized saline was flushed both proximally and distally for local anticoagulation. Using 6-0 Prolene suture in a running fashion, an anastomosis was then created between the 4 mm portion of the propatent graft and the brachial artery in an end to side fashion. Following completion of the anastomosis, inflow was restored through the brachial artery followed by outflow to the brachial artery and a graft clamp was placed proximally just above the anastomosis. Nu-Knit was placed around the anastomosis. Prior to clamping there was pulsatility present in the AVG. The clip was removed from the small side branch. Next we turned our attention to the venous anastomosis, a small bulldog clamp was placed proximally and a silastic vessel loop was placed distally on the axillary vein. Using 11 blade scalpel, a venotomy was created in the anterior surface of the axillary vein and extended using Monzon scissors for approximately 2 cm. The 7 mm portion of the graft was then cut and beveled to meet the venotomy. Using 6-0 Prolene suture in a running fashion, an anastomosis created between the 7 mm portion of the graft and the axillary vein. Prior to completion of the anastomosis, backbleeding through the venous system as well as inflow through the graft were allowed in order to vent to the graft and vein of air and debris. The anastomosis was then completed. Outflow was then restored followed by inflow through the graft and outflow through the distal axillary vein. Once flow was restored, the graft was inspected. A palpable thrill was present throughout the graft and the arteriovenous Doppler signal was present in the axillary vein proximal to the venous anastomosis. The radial pulse remained palpable. Hemostasis was achieved. We then proceeded with closure. At the axillary incision, 3-0 Vicryl suture was placed to reapproximate the axillary fascia. 3-0 Vicryl deep dermal sutures were then placed followed by a running 4-0 Monocryl subcuticular suture at the skin. At the brachial artery incision, 3-0 vicryl deep dermal sutures were placed followed by a running 4-0 Monocryl subcuticular suture at the skin. Dermabond skin glue was placed. All sponge and needle counts were correct at the conclusion of the case. The patient was awakened from general anesthesia and transferred to the recovery area in stable condition. A palpable thrill remained present throughout the graft and the left radial pulse remained palpable. Raffy Fernandez MD Vascular Surgery documented in this encounter [facility] 07-17-2022 Telephone encounter Note Patient called in today stating that she has to reschedule her surgery because she ate breakfast this morning. Surgery has been rescheduled to: Date: 08/07/22 AT 9:30 AM PAT IS STILL GOOD FROM 07/10/22 NEW PO: 08/26/22 AT 8:30 AM New surgical booklet mailed to patient home withupdates. Also went over all dates and times and fasting instructions with patient. Kailyn has put new orders in Epic due to case number changed and was cancelled. [facility] 07-17-2022 Miscellaneous Notes Patient called in today stating that she has to reschedule her surgery because she ate breakfast this morning. Surgery has been rescheduled to: Date: 08/07/22 AT 9:30 AM PAT IS STILL GOOD FROM 07/10/22 NEW PO: 08/26/22 AT 8:30 AM New surgical booklet mailed to patient home withupdates. Also went over all dates and times and fasting instructions with patient. Kailyn has put new orders in [employer] due to case number changed and was cancelled. [facility] SURGERY: LEFT UPPER EXTREMITY AV GRAFT PLACEMENT DATE OF SURGERY: 07/17/22 11:30 PRE TESTIN07/10/2022 12:30 AUTH #: LUIZA CARDIAC CLEARANCE POST OP OR OV: 08/03/2022 2:00 MEDS TO HOLD: NONE MEDS TO CONTINUE: ALL documented in this encounter [facility] 07-17-2022 Attending History and physical note I was notified the patient had breakfast this morning prior to arrival. Will cancel case for today and reschedule. The office has been notified and will work to reschedule her surgery. Source Note - PARK Ferrell CNP - 07/10/2022 12:30 PM EDT Images from the original note were not included. Comprehensive PreSurgical History and Physical ? Name: Apoorva Gonzalez : 1950 (Age-72 y.o.) Date of Service: Pt seen/examined on 07/10/2022 Procedure Information Date/Time: 07/17/22 1130 Procedure: LEFT UPPER EXTREMITY ARTERIOVENOUS GRAFT PLACEMENT (Left) Location: [facility] OR [address] [place] [address] Operating Room Surgeons: Raffy Fernandez MD Chief Complaint: Dependence on renal dialysis End stage renal disease History Of Present Illness: 72 y.o. female who we are asked to see/evaluate by Dr. Fernandez for pre-operative evaluation prior to above procedure . ? Denies history of MA, CHF, TIA, CVA Past Medical History: Past Medical History: No date: Chronic kidney disease (CKD) No date: Hemodialysis patient ([facility]) ([facility]) Comment: Wednesday, , Wednesday02/27/2022: History of blood transfusion No date: Hypertension No date: Seizure ([facility]) Comment: Developed seizure-like activity on 02/24 during hospital admission Past Surgical History: Past Surgical History: 02/27/2022: IR CVC TUNNELED DIALYSIS CATHETER PLACEMENT Comment: IR CVC TUNNELED CATHETER PLACEMENT 02/27/2022 Candis Andrade MD [facility] SPECIAL PROCEDURES Medications Prior to Admission: Prior to Admission medications Medication Sig Start Date End Date Taking? Authorizing Provider amLODIPine (Norvasc) 5 MG tablet Take 1 tablet (5 mg) by mouth daily. Patient taking differently: Take 10 mg by mouth daily. 03/02/22 03/02/23 Yes PARK Lispcomb CNP calcium acetate (Phoslo) 667 MG tablet Take 1 tablet by mouth in the morning and 1 tablet at noon and 1 tablet in the evening. Take with meals. 07/01/22 Yes Historical Provider, iron sucrose (Venofer) 20 MG/ML injection Infuse 50 mg into a venous catheter per week. 04/14/22 04/06/23 Yes Historical Provider, VITAMIN E PO Take by mouth daily. Yes Historical Provider, aspirin 81 MG EC tablet Take 1 tablet (81 mg) by mouth daily. Patient not taking: Reported on 07/10/2022 03/02/22 03/02/23 PARK Lipscomb CNP atorvastatin (Lipitor) 40 MG tablet Take 1 tablet (40 mg) by mouth Nightly. Patient not taking: Reported on 07/10/2022 03/02/22 03/02/23 PARK Lipscomb CNP cholecalciferol (Vitamin D-3) 125 MCG (5000 UT) capsule Take 5,000 Units by mouth daily. Historical Provider, levETIRAcetam (Keppra) 500 MG tablet Take 1 tablet (500 mg) by mouth daily. 03/02/22 04/01/22 PARK Lipscomb CNP omega-3 (Fish Oil) 1000 MG capsule Take 1,000 mg by mouth daily. Historical Provider, Thiamine HCl (vitamin B-1) 250 MG tablet Take 250 mg by mouth daily. Historical Provider, CHRONIC NARCOTIC USE: No Allergies: Patient has no known allergies. Can the patient take acetaminophen: Yes Social History: TOBACCO: reports that she has never smoked. She has never used smokeless tobacco. ETOH: reports current alcohol use of about 2.0 standard drinks per week. Social History Substance and Sexual Activity Drug Use Never Family History: Family History Problem Relation Name Age of Onset Dementia Mother Stroke Father REVIEW OF SYSTEMS: Review of Systems Constitutional: Negative for chills and fever. HENT: Negative for trouble swallowing. Respiratory: Negative for cough and shortness of breath. Cardiovascular: Negative for chest pain and leg swelling. Gastrointestinal: Negative for abdominal pain, nausea and vomiting. Skin: Negative for rash. Neurological: Negative for seizures and weakness. Physical Exam: Physical Exam Constitutional: Appearance: Normal appearance. HENT: Head: Normocephalic and atraumatic. Mouth/Throat: Mouth: Mucous membranes are moist. Pharynx: Oropharynx is clear. Eyes: Pupils: Pupils are equal, round, and reactive to light. Cardiovascular: Rate and Rhythm: Normal rate. Pulses: Normal pulses. Pulmonary: Effort: Pulmonary effort is normal. Abdominal: General: Bowel sounds are normal. Musculoskeletal: General: Normal range of motion. Cervical back: Normal range of motion. Skin: General: Skin is warm and dry. Capillary Refill: Capillary refill takes less than 2 seconds. Neurological: General: No focal deficit present. Mental Status: She is alert and oriented to person, place, and time. Psychiatric: Behavior: Behavior normal. Vitals: Vitals Value Taken Time BP 154/83 07/10/22 1253 Temp 36.4 C (97.5 F) 07/10/22 1253 Pulse 91 07/10/22 1253 Resp 12 07/10/22 1253 SpO2 99 % 07/10/22 1253 Labs: Ordered per PAT protocol Juarez's Simple Cardiac Risk Index: JUAREZ'S SIMPLE CARDIAC RISK SCORE: 3 Interpretation: 0 Points Class I 0.5% 1 Point Class II 1.3% 2 Points Class III 3.6% 3+ Points Class IV 9.1% METS >4 METS (Able to climb a flight of stairs with no chest pain or shortness of breath): Yes PAT Pain Score: Postop Pain Management Plan (Pain consult ordered?): Pain consult not indicated at this time ? EKG: completed 02/2022 ( sinus tachy at 106) ECHO and EF:Echo 02/27/22 ASSESSMENT/PLAN: Patient is considered intermediate risk for this intermediate risk procedure/surgery () with no reducible risk factors. Based on the above evaluation, the benefits of the planned procedure likely exceed the risks. The patient is medically optimized to proceed with the planned procedure without any further cardiopulmonary testing. 1) Dependence on renal dialysis End stage renal disease - Managed per surgery Currently has right chest port and dialysis T-TH-S Phoslo Venofer Labs ordered 2) Hx seizure (one time in February 2022) Pt reports from hypertensive crisis No longer taking Keppra for the past 2-3 months 3) CAD/ HTN No longer taking Lipitor or Norvasc Talked to pt about her BP being elevated here in PAT today- she reports she will talk to her PCP Visit Type: Pre-Admission Testing Visit Labs Ordered: YES - PER PAT PROTOCOL Sleep Referral Ordered: NO - NEGATIVE SCREEN PER SLEEP REFERRAL PROTOCOL Electronically signed by: PARK Ferrell CNP Date: 07/10/2022 at 1:05 PM PAT Protocol referenced includes: 1. Anesthesia Lab Protocol Orders 2. Perioperative Cardiovascular Risk Assessment 3. Anesthesia Assessment 4. Pain Assessment and Acute Pain Service Consult (if appropriate) 5. Medical Clearance/Consult from Internal Medicine (IMS) 6. Shower/Wash Order (for designated surgeries) 7. KOREY Screen and Sleep Clinic Referral (if appropriate) [employer] Work Phone: 07-17-2022 History and physical note I was notified the patient had breakfast this morning prior to arrival. Will cancel case for today and reschedule. The office has been notified and will work to reschedule her surgery. Source Note - PARK Ferrell CNP - 07/10/2022 12:30 PM EDT Images from the original note were not included. Comprehensive PreSurgical History and Physical ? Name: Apoorva Gonzalez : 1950 (Age-72 y.o.) Date of Service: Pt seen/examined on 07/10/2022 Procedure Information Date/Time: 07/17/22 1130 Procedure: LEFT UPPER EXTREMITY ARTERIOVENOUS GRAFT PLACEMENT (Left) Location: [facility] OR [address] [place] [address] Operating Room Surgeons: Raffy Fernandez MD Chief Complaint: Dependence on renal dialysis End stage renal disease History Of Present Illness: 72 y.o. female who we are asked to see/evaluate by Dr. Fernandez for pre-operative evaluation prior to above procedure . ? Denies history of MA, CHF, TIA, CVA Past Medical History: Past Medical History: No date: Chronic kidney disease (CKD) No date: Hemodialysis patient (CMS/HCC) (HCC) Comment: Wednesday, , Wednesday02/27/2022: History of blood transfusion No date: Hypertension No date: Seizure ([facility]) Comment: Developed seizure-like activity on 02/24 during hospital admission Past Surgical History: Past Surgical History: 02/27/2022: IR CVC TUNNELED DIALYSIS CATHETER PLACEMENT Comment: IR CVC TUNNELED CATHETER PLACEMENT 02/27/2022 Candis Andrade MD [facility] SPECIAL PROCEDURES Medications Prior to Admission: Prior to Admission medications Medication Sig Start Date End Date Taking? Authorizing Provider amLODIPine (Norvasc) 5 MG tablet Take 1 tablet (5 mg) by mouth daily. Patient taking differently: Take 10 mg by mouth daily. 03/02/22 03/02/23 Yes PARK Lipscomb CNP calcium acetate (Phoslo) 667 MG tablet Take 1 tablet by mouth in the morning and 1 tablet at noon and 1 tablet in the evening. Take with meals. 07/01/22 Yes Historical Provider, iron sucrose (Venofer) 20 MG/ML injection Infuse 50 mg into a venous catheter per week. 04/14/22 04/06/23 Yes Historical Provider, VITAMIN E PO Take by mouth daily. Yes Historical Provider, aspirin 81 MG EC tablet Take 1 tablet (81 mg) by mouth daily. Patient not taking: Reported on 07/10/2022 03/02/22 03/02/23 PARK Lipscomb CNP atorvastatin (Lipitor) 40 MG tablet Take 1 tablet (40 mg) by mouth Nightly. Patient not taking: Reported on 07/10/2022 03/02/22 03/02/23 PARK Lipscomb CNP cholecalciferol (Vitamin D-3) 125 MCG (5000 UT) capsule Take 5,000 Units by mouth daily. Historical Provider, levETIRAcetam (Keppra) 500 MG tablet Take 1 tablet (500 mg) by mouth daily. 03/02/22 04/01/22 PARK Lipscomb CNP omega-3 (Fish Oil) 1000 MG capsule Take 1,000 mg by mouth daily. Historical Provider, Thiamine HCl (vitamin B-1) 250 MG tablet Take 250 mg by mouth daily. Historical Provider, CHRONIC NARCOTIC USE: No Allergies: Patient has no known allergies. Can the patient take acetaminophen: Yes Social History: TOBACCO: reports that she has never smoked. She has never used smokeless tobacco. ETOH: reports current alcohol use of about 2.0 standard drinks per week. Social History Substance and Sexual Activity Drug Use Never Family History: Family History Problem Relation Name Age of Onset Dementia Mother Stroke Father REVIEW OF SYSTEMS: Review of Systems Constitutional: Negative for chills and fever. HENT: Negative for trouble swallowing. Respiratory: Negative for cough and shortness of breath. Cardiovascular: Negative for chest pain and leg swelling. Gastrointestinal: Negative for abdominal pain, nausea and vomiting. Skin: Negative for rash. Neurological: Negative for seizures and weakness. Physical Exam: Physical Exam Constitutional: Appearance: Normal appearance. HENT: Head: Normocephalic and atraumatic. Mouth/Throat: Mouth: Mucous membranes are moist. Pharynx: Oropharynx is clear. Eyes: Pupils: Pupils are equal, round, and reactive to light. Cardiovascular: Rate and Rhythm: Normal rate. Pulses: Normal pulses. Pulmonary: Effort: Pulmonary effort is normal. Abdominal: General: Bowel sounds are normal. Musculoskeletal: General: Normal range of motion. Cervical back: Normal range of motion. Skin: General: Skin is warm and dry. Capillary Refill: Capillary refill takes less than 2 seconds. Neurological: General: No focal deficit present. Mental Status: She is alert and oriented to person, place, and time. Psychiatric: Behavior: Behavior normal. Vitals: Vitals Value Taken Time BP 154/83 07/10/22 1253 Temp 36.4 C (97.5 F) 07/10/22 1253 Pulse 91 07/10/22 1253 Resp 12 07/10/22 1253 SpO2 99 % 07/10/22 1253 Labs: Ordered per PAT protocol Juarez's Simple Cardiac Risk Index: JUAREZ'S SIMPLE CARDIAC RISK SCORE: 3 Interpretation: 0 Points Class I 0.5% 1 Point Class II 1.3% 2 Points Class III 3.6% 3+ Points Class IV 9.1% METS >4 METS (Able to climb a flight of stairs with no chest pain or shortness of breath): Yes PAT Pain Score: Postop Pain Management Plan (Pain consult ordered?): Pain consult not indicated at this time ? EKG: completed 02/2022 ( sinus tachy at 106) ECHO and EF:Echo 02/27/22 ASSESSMENT/PLAN: Patient is considered intermediate risk for this intermediate risk procedure/surgery () with no reducible risk factors. Based on the above evaluation, the benefits of the planned procedure likely exceed the risks. The patient is medically optimized to proceed with the planned procedure without any further cardiopulmonary testing. 1) Dependence on renal dialysis End stage renal disease - Managed per surgery Currently has right chest port and dialysis T-TH-S Phoslo Venofer Labs ordered 2) Hx seizure (one time in February 2022) Pt reports from hypertensive crisis No longer taking Keppra for the past 2-3 months 3) CAD/ HTN No longer taking Lipitor or Norvasc Talked to pt about her BP being elevated here in PAT today- she reports she will talk to her PCP Visit Type: Pre-Admission Testing Visit Labs Ordered: YES - PER PAT PROTOCOL Sleep Referral Ordered: NO - NEGATIVE SCREEN PER SLEEP REFERRAL PROTOCOL Electronically signed by: Mary Wilkisnon, PARK - AGENCY TRAINER Date: 07/10/2022 at 1:05 PM PAT Protocol referenced includes: 1. Anesthesia Lab Protocol Orders 2. Perioperative Cardiovascular Risk Assessment 3. Anesthesia Assessment 4. Pain Assessment and Acute Pain Service Consult (if appropriate) 5. Medical Clearance/Consult from Internal Medicine (IMS) 6. Shower/Wash Order (for designated surgeries) 7. KOREY Screen and Sleep Clinic Referral (if appropriate) documented in this encounter [facility] 07-17-2022 Note Formatting of this n ote might be different from the original. Pt ate a crab cake and egg at 0530, Dr Fernandez notified, unable to do surgery later. Pt advised that her surgery is cancelled for today and to go home and reschedule for another day. Pt advised to not eat anything at all before next surgery. [facility] 07-17-2022 Note Formatting of this n ote might be different from the original. Pt ate a crab cake and egg at 0530, Dr Fernandez notified, unable to do surgery later. Pt advised that her surgery is cancelled for today and to go home and reschedule for another day. Pt advised to not eat anything at all before next surgery. [facility] 07-17-2022 Miscellaneous Notes Pt ate a crab cake and egg at 0530, Dr Fernandez notified, unable to do surgery later. Pt advised that her surgery is cancelled for today and to go home and reschedule for another day. Pt advised to not eat anything at all before next surgery. documented in this encounter [facility] 07-10-2022 Telephone encounter Note Lab called me with a critical lab K 6.6 Patient has ESRD on HD (T-TH-S) and scheduled for HD tomorrow. Advise for patient to go to HD session tomorrow given her elevated K. No need for ED visit at this time. Maria R Greenwood MD Division of Hospitalist Medicine [facility] [employer]ep[employer]! 7:06 PM 07/10/22 [employer] [facility] Work Phone: 07-10-2022 Miscellaneous Notes Lab called me with a critical lab K 6.6 Patient has ESRD on HD (T-TH-S) and scheduled for HD tomorrow. Advise for patient to go to HD session tomorrow given her elevated K. No need for ED visit at this time. Maria R Greenwood MD Division of Hospitalist Medicine [facility] YepLike! 7:06 PM 07/10/22 documented in this encounter [facility] 07-01-2022 Telephone encounter Note SURGERY: LEFT UPPER EXTREMITY AV GRAFT PLACEMENT DATE OF SURGERY: 07/17/22 11:30 PRE TESTIN07/10/2022 12:30 AUTH #: LUIZA CARDIAC CLEARANCE POST OP OR OV: 08/03/2022 2:00 MEDS TO HOLD: NONE MEDS TO CONTINUE: ALL [facility] 06-24-2022 History of Present illness Narrative Vascular Surgery Outpatient Consultation Chief Complaint Patient presents with New Patient Eval for perm access placement; 06/03/22 Reason for Consult: Hemodialysis access, End Stage Renal Disease HISTORY OF PRESENT ILLNESS: The patient is a 72 y.o. right handed female with end stage renal disease on hemodialysis who presents to the clinic today for creation of permanent access. She currently undergoes HD via a right tunneled HD catheter on . She states that she started HD in April (some notes suggest February of 2022). She had a gradual decline in her kidney function over time. She is tolerating HD without difficulty. She had vein mapping performed at [facility]. Past Medical History: Past Medical History: Diagnosis Date Chronic kidney disease (CKD) Hypertension Past Surgical History: Past Surgical History: Procedure Laterality Date IR CVC TUNNELED DIALYSIS CATHETER PLACEMENT 02/27/2022 IR CVC TUNNELED CATHETER PLACEMENT 02/27/2022 Candis Andrade MD [facility] SPECIAL PROCEDURES Current Medications: Prior to Admission medications Medication Sig Start Date End Date Taking? Authorizing Provider amLODIPine (Norvasc) 5 MG tablet Take 1 tablet (5 mg) by mouth daily. 03/02/22 03/02/23 Yes PARK Lipscomb CNP aspirin 81 MG EC tablet Take 1 tablet (81 mg) by mouth daily. 03/02/22 03/02/23 Yes PARK Lipscomb CNP atorvastatin (Lipitor) 40 MG tablet Take 1 tablet (40 mg) by mouth Nightly. 03/02/22 03/02/23 Yes PARK Lipscomb CNP iron sucrose (Venofer) 20 MG/ML injection Infuse 50 mg into a venous catheter per week. 04/14/22 04/06/23 Yes Historical Provider, levETIRAcetam (Keppra) 500 MG tablet Take 1 tablet (500 mg) by mouth daily. 03/02/22 04/01/22 PARK Lipscomb CNP Allergies: Patient has no known allergies. Social History Socioeconomic History Marital status: Spouse name: Not on file Number of children: Not on file Years of education: Not on file Highest education level: Not on file Occupational History Not on file Tobacco Use Smoking status: Never Smokeless tobacco: Never Substance and Sexual Activity Alcohol use: Yes Alcohol/week: 2.0 standard drinks Types: 2 Glasses of wine per week Drug use: Not on file Sexual activity: Not on file Other Topics Concern Not on file Social History Narrative Not on file Social Determinants of Health Financial Resource Strain: Not on file Food Insecurity: Not on file Transportation Needs: No Transportation Needs Lack of Transportation (Medical): No Lack of Transportation (Non-Medical): No Physical Activity: Not on file Stress: Not on file Social Connections: Not on file Intimate Partner Violence: Not At Risk Fear of Current or Ex-Partner: No Emotionally Abused: No Physically Abused: No Sexually Abused: No Housing Stability: Not on file Family History Problem Relation Name Age of Onset Dementia Mother Stroke Father Review of Systems Constitutional: Negative. HENT: Negative. Eyes: Negative. Respiratory: Negative. Cardiovascular: Negative. Gastrointestinal: Negative. Endocrine: Negative. Genitourinary: Negative. Musculoskeletal: Negative. Skin: Negative. Allergic/Immunologic: Negative. Neurological: Negative. Hematological: Negative. Psychiatric/Behavioral: Negative. LABS: Lab Results Component Value Date CREATININE 5.46 (H) 03/02/2022 Lab Results Component Value Date WBC 10.5 03/02/2022 HGB 7.8 (L) 03/02/2022 HCT 23.3 (L) 03/02/2022 MCV 92.7 03/02/2022 PLT 324 03/02/2022 Lab Results Component Value Date INR 1.0 02/24/2022 INR 0.9 02/21/2022 PROTIME 10.3 02/24/2022 PROTIME 9.9 02/21/2022 PHYSICAL EXAM: CONSTITUTIONAL: awake, alert, cooperative, no apparent distress, and appears stated age EYES: Perrla, Eomi ENT: normocepalic, without obvious abnormality, atraumatic NECK: supple, symmetrical, trachea midline, no jugular venous distension, no masses. A right tunneled internal jugular catheter is in place without evidence of infection. LUNGS: no increased work of breathing, good air exchange and clear to auscultation CARDIOVASCULAR: regular rate and rhythm and no murmur noted ABDOMEN: soft, non-distended, non-tender, Aorta not palpated SKIN: no lesions EXTREMITIES: No upper or lower extremity edema present. Radial pulses are palpable bilaterally IMAGING: Outside vein mapping suggests no suitable vein for creation of an autologous AVF. RECOMMENDATIONS: Problem List Items Addressed This Visit None Visit Diagnoses ESRD (end stage renal disease) (HCC) - Primary Plan for placement of a left upper extremity arteriovenous graft. We discussed the risks involved in placement of the AVG including the risks of bleeding, infection, damage to surrounding structures such as the nerves resulting in numbness, dialysis access steal syndrome, development or worsening of heart failure, and myocardial infarction.The patient expressed understanding and has elected to proceed with surgery. We will work on scheduling. Raffy Fernandez MD Vascular Surgery documented in this encounter [facility] 06-03-2022 Note HNO ID: [id number] Author: RT Austen(Vasiliy) Service: Radiology Author Type: Technologist Type: Progress Notes Filed: 06/03/2022 2:29 PM Note Text: Radiology Service Progress Note PATIENT NAME: Apoorva Gonzalez DATE OF SERVICE: June 03, 2022 TIME: 2:29 PM PATIENT IDENTITY VERIFICATION COMPLETED USING TWO (2) IDENTIFIERS: Name and Date of confirmed by patient verbally. FALL SCREENING: Has the patient had 2 falls in the last year or 1 fall with injury or currently using an Ambulatory Assistive Device (Walker, Cane, Wheelchair, Crutches, etc.)? No PATIENT GENDER DATA: Female. status: : No status: NO. PATIENT RELEVANT IMPLANT DATA REVIEWED: Not Applicable RADIOLOGY DEPARTMENT: Ultrasound PERIPHERAL IV DATA: Not applicable SIGNED BY: RT Austen(R) June 03, 2022 2:29 PM [facility] 06-03-2022 History of Present illness Narrative Radiology Service Progress Note PATIENT NAME: Apoorva Gonzalez DATE OF SERVICE: June 03, 2022 TIME: 2:29 PM PATIENT IDENTITY VERIFICATION COMPLETED USING TWO (2) IDENTIFIERS: Name and Date of confirmed by patient verbally. FALL SCREENING: Has the patient had 2 falls in the last year or 1 fall with injury or currently using an Ambulatory Assistive Device (Walker, Cane, Wheelchair, Crutches, etc.)? No PATIENT GENDER DATA: Female. status: : No status: NO. PATIENT RELEVANT IMPLANT DATA REVIEWED: Not Applicable RADIOLOGY DEPARTMENT: Ultrasound PERIPHERAL IV DATA: Not applicable SIGNED BY: RT Austen(R) June 03, 2022 2:29 PM documented in this encounter [facility] 12-31-2020 Note HNO ID: [id number] Author: Philly Michael, RN Service: ? Author Type: Registered Nurse Type: Progress Notes Filed: 12/31/2020 10:58 AM Note Text: Per insurance note on 12/31/2020: Called to conduct pt interview and she asked me to reschedule her appt/ PRE KIDNEY TXP. I called and left a detailed vm for Ms Gonzalez informing her this is her second cancellation and I will rescheduled one more time. If she cancels for the 3rd time she will closed and not be able to come back for at least a years time. Phone number provided. [facility] Evaluation note Diagnosis ESRD (end stage renal disease) (HCC)- Primary End stage renal disease documented in this encounter [facility]* Diagnosis S/P arteriovenous (AV) graft placement- Primary [facility] Diagnosis End stage renal disease (HCC) End stage renal disease documented in this encounter [facility] note* Diagnosis Hematoma- Primary Contusion of unspecified site Bleeding from wound [facility]* Diagnosis End stage renal disease (HCC)- Primary End stage renal disease End stage renal disease (HCC) End stage renal disease documented in this encounter [facility] note* Diagnosis Encounter for screening mammogram for malignant neoplasm of breast documented [facility] this [facility]* Diagnosis ESRD on hemodialysis (CMS/HCC) (HCC)- Primary documented in this [facility]* Diagnosis Hyperkalemia- Primary Hyperpotassemia documented in this encounter [facility]* Diagnosis End stage renal disease (HCC)- Primary End stage renal disease documented in this encounter [facility]* Diagnosis Gastrointestinal hemorrhage, unspecified gastrointestinal hemorrhage type- Primary Gastrointestinal hemorrhage, unspecified gastrointestinal hemorrhage type Anemia, unspecified type Anemia Unspecified anemia documented in this encounter [facility]* Diagnosis Hypertension, unspecified type- Primary documented in this encounter [facility]* Diagnosis Pulmonary edema, acute (HCC)- Primary Unspecified acute edema of lung Pulmonary edema, acute (HCC) Unspecified acute edema of lung documented in this [facility]* Diagnosis Shortness of breath- Primary Shortness of breath Acute pulmonary edema (HCC) Unspecified acute edema of lung Hyperkalemia Hyperpotassemia documented in this encounter [facility] note* Diagnosis Encounter for screening mammogram for malignant neoplasm of breast documented in this encounter [facility]* Diagnosis Myoclonus- Primary Fall, initial encounter Hyperkalemia Hyperpotassemia documented in this encounter [facility] note* Diagnosis Adverse effect of drug, initial encounter- Primary documented in this encounter [facility] note* Diagnosis Hematoma- Primary Contusion of unspecified site Hematoma Contusion of unspecified site documented in this encounter [facility] Work Phone: Evaluation note* Diagnosis Sepsis, due to unspecified organism, unspecified whether acute organ dysfunction present (HCC)- Primary Sepsis, due to unspecified organism, unspecified whether acute organ dysfunction present (HCC) Altered mental status, unspecified altered mental status type Buttock wound, left, initial encounter Seizures (HCC) Other convulsions ESRD (end stage renal disease) (HCC) End stage renal disease Dialysis patient ([facility]) Renal dialysis status documented in this encounter [facility] note* Diagnosis Wound dehiscence- Primary Disruption of external operation (surgical) wound Wound dehiscence Disruption of external operation (surgical) wound Anemia due to other cause, not classified End stage congestive heart failure (HCC) Seizures (HCC) Other convulsions Pressure ulcer of left buttock, stage 3 (HCC) End stage congestive heart failure (HCC) documented in this encounter [facility]Evaluation note* Diagnosis End stage congestive heart failure (HCC)- Primary ESRD (end stage renal disease) (HCC) End stage renal disease documented [facility]* Diagnosis Anemia of chronic disease- Primary Anemia of other chronic disease documented in this encounter [facility]* Diagnosis ESRD (end stage renal disease) on dialysis (HCC)- Primary End stage renal disease documented in this encounter [facility]Evaluation note* Diagnosis ESRD (end stage renal disease) on dialysis (HCC)- Primary End stage renal disease documented [facility]* Diagnosis ESRD (end stage renal disease) on dialysis (HCC) End stage renal disease Preop examination Unspecified pre-operative examination documented in this encounter [facility] note* Diagnosis Fall, initial encounter- Primary Fall, initial encounter Closed head injury, initial encounter Pressure injury of left buttock, stage 3 (HCC) Fall (on)(from) sidewalk curb, initial encounter Moderate malnutrition (CMS/HCC) (HCC) documented in this encounter [facility]Evaluation note* Diagnosis Transient alteration of awareness- Primary [facility]* Attachments The following attachments cannot be sent through Care Everywhere. * Hyperkalemia ([place]) [facility]* Attachments The following attachments cannot be sent through Care Everywhere. * High Blood Pressure Discharge Instructions ([place]) documented in this [facility] Discharge instructions* Attachments The following attachments cannot be sent through Care Everywhere. * Anemia of Inflammation (Anemia of Chronic Disease) ([place]) documented in this [facility] HealthInstructions* Attachments The following attachments cannot be sent through Care Everywhere. * Preparing for Hemodialysis ([place]) * Hemodialysis ([place]) documented in this [facility] HealthReason for visit Narrative* Auth/Cert (Routine) Specialty Diagnoses / Procedures Referred By Gustavo jones Referred To Contact Diagnoses Hematoma Fluid Collection Procedures No coded [place] [id number] Department [place] [address] Phone: tel: [facility]: [phone] [place] [address] Phone: tel: Referral ID Status Reason Start Date Expiration Date Visits Re quested Visits Authorized [id number] 1 1 [facility] Work Phone: Reason for visit Narrative* Imaging (Routine) - Closed Specialty Diagnoses / Procedures Referred By Gustavo jones Referred To Contact Cardiology Diagnoses ESRD (end stage renal disease) on dialysis (HCC) Preop examination Procedures Vascular US vessel map for hemodialysis access arm bilateral Raffy Fernandez MD [address] [facility] [address] [place] [address] Phone: tel: fax: Referral ID Status Reason Start Date Expiration Date Visits Re quested Visits Authorized [id number] Closed 11/28/2024 11/28/2026 1 1 [facility] Advance Directives No Advanced Directives Records FoundDocuments on File Type Date Recorded Patient Diesel Crane Operator Expl anation Advance Directives and Living Will Power of Rotary Helper Documents on File Type Date Recorded Patient Diesel Crane Operator Expl anation Advance Directive(s) 10/25/2019 7:08 AM Latest Code Status on File Code Status Date Activated Date Inactivated Comments Full Code 02/24/2022 5:00 PM 03/02/2022 7:07 PM Latest Code Status on File Code Status Date Activated Date Inactivated Comments Full Code 07/17/2022 9:55 AM 07/17/2022 12:44 PM Code Status History Code Status Date Activated Date Inactivated Comments Full Code 02/24/2022 5:00 PM 03/02/2022 7:07 PM Latest Code Status on File Code Status Date Activated Date Inactivated Comments Full Code 07/17/2022 9:55 AM 07/17/2022 12:44 PM Code Status History Code Status Date Activated Date Inactivated Comments Full Code 02/24/2022 5:00 PM 03/02/2022 7:07 PM Latest Code Status on File Code Status Date Activated Date Inactivated Comments Full Code 08/07/2022 8:15 AM 08/08/2022 8:14 AM Code Status History Code Status Date Activated Date Inactivated Comments Full Code 07/17/2022 9:55 AM 07/17/2022 12:44 PM Full Code 02/24/2022 5:00 PM 03/02/2022 7:07 PM Documents on File Type Date Recorded Patient Diesel Crane Operator Expl anation Advance Directives and Livin g Will 10/01/2022 1:19 PM Power of Rotary Helper 10/01/2022 1:19 PM Latest Code Status on File Code Status Date Activated Date Inactivated Comments Full Code 08/07/2022 8:15 AM 08/08/2022 8:14 AM Code Status History Code Status Date Activated Date Inactivated Comments Full Code 07/17/2022 9:55 AM 07/17/2022 12:44 PM Full Code 02/24/2022 5:00 PM 03/02/2022 7:07 PM Documents on File Type Date Recorded Patient Diesel Crane Operator Expl anation Advance Directives and Livin g Will 10/01/2022 1:19 PM Power of Rotary Helper 10/01/2022 1:19 PM Date Activated Date Inactivated Comments 08/07/2022 8:15 AM 08/08/2022 8:14 AM Date Activated Date Inactivated Comments 07/17/2022 9:55 AM 07/17/2022 12:44 PM Date Activated Date Inactivated Comments 02/24/2022 5:00 PM 03/02/2022 7:07 PM Date Activated Date Inactivated Comments 01/23/2024 9:53 AM 01/25/2024 8:12 PM Date Activated Date Inactivated Comments 01/20/2024 12:18 AM 01/23/2024 9:53 AM Question Answer Comments ICU transfer: Yes Intubation: No Date Activated Date Inactivated Comments 01/19/2024 11:35 PM 01/20/2024 12:18 AM Date Activated Date Inactivated Comments 08/07/2022 8:15 AM 08/08/2022 8:14 AM Date Activated Date Inactivated Comments 07/17/2022 9:55 AM 07/17/2022 12:44 PM Documents on File Type Date Recorded Patient Diesel Crane Operator Expl anation DNR (Do Not Resuscitate) 01/26/2024 11:24 AM Advance Directives and Livin g Will 10/01/2022 1:19 PM Power of Rotary Helper 10/01/2022 1:19 PM Date Activated Date Inactivated Comments 02/19/2024 8:31 AM 02/20/2024 7:26 PM Date Activated Date Inactivated Comments 01/23/2024 9:53 AM 01/25/2024 8:12 PM Date Activated Date Inactivated Comments 01/20/2024 12:18 AM 01/23/2024 9:53 AM Question Answer Comments ICU transfer: Yes Intubation: No Date Activated Date Inactivated Comments 01/19/2024 11:35 PM 01/20/2024 12:18 AM Date Activated Date Inactivated Comments 08/07/2022 8:15 AM 08/08/2022 8:14 AM Date Activated Date Inactivated Comments 03/02/2024 7:56 AM 03/03/2024 10:18 PM Date Activated Date Inactivated Comments 02/19/2024 8:31 AM 02/20/2024 7:26 PM Date Activated Date Inactivated Comments 01/23/2024 9:53 AM 01/25/2024 8:12 PM Date Activated Date Inactivated Comments 01/20/2024 12:18 AM 01/23/2024 9:53 AM Question Answer Comments ICU transfer: Yes Intubation: No Date Activated Date Inactivated Comments 01/19/2024 11:35 PM 01/20/2024 12:18 AM Healthcare Agents on File Name Relationship Healthcare Agent Relationshi p Communication Mayur Matthews [facility] Care Agent Healthcare Agents on File Name Relationship Healthcare Agent Relationshi p Communication Mayur [facility] Care Agent Healthcare Agents on File Name Relationship Healthcare Agent Relationshi p Communication Mayur Barragan [facility] Care Agent Healthcare Agents on File Name Relationship Healthcare Agent Relationshi p Communication Mayur Barragan [facility] Care Agent Date Activated Date Inactivated Comments 08/31/2024 12:12 AM Question Answer Comments Plan of Care: Code Status Discussion Completed Decision Maker: Patient Documents on File Type Date Recorded Patient Diesel Crane Operator Expl anation Power of Rotary Helper 10/24/2024 11:41 AM Power of Rotary Helper 10/24/2024 11:24 AM DNR (Do Not Resuscitate) 01/26/2024 11:24 AM Advance Directives and Living Will 10/01/2022 1:19 PM Power of Rotary Helper 10/01/2022 1:19 PM DNR (Do Not Resuscitate) 11/11/2024 12:26 PM [place] DNR Form Date Activated Date Inactivated Comments 10/27/2024 12:55 PM 11/11/2024 8:10 PM Question Answer Comments ICU transfer: Yes Intubation: No Date Activated Date Inactivated Comments 10/22/2024 6:51 PM 10/27/2024 12:55 PM Date Activated Date Inactivated Comments 09/14/2024 4:43 AM 10/12/2024 9:44 PM Date Activated Date Inactivated Comments 03/02/2024 7:56 AM 03/03/2024 10:18 PM Date Activated Date Inactivated Comments 02/19/2024 8:31 AM 02/20/2024 7:26 PM Healthcare Agents on File Name Relationship Healthcare Agent Relationshi p Communication Deshawn Crystal [facility] Care Agent Documents on File Type Date Recorded Patient Diesel Crane Operator Expl anation Power of Rotary Helper 10/24/2024 11:41 AM Power of Rotary Helper 10/24/2024 11:24 AM DNR (Do Not Resuscitate) 01/26/2024 11:24 AM Advance Directives and Living Will 10/01/2022 1:19 PM Power of Rotary Helper 10/01/2022 1:19 PM DNR (Do Not Resuscitate) 11/15/2024 10:00 AM [place] DNR Form DNR (Do Not Resuscitate) 11/11/2024 12:26 PM [place] DNR Form Date Activated Date Inactivated Comments 11/13/2024 2:07 PM 11/15/2024 3:50 PM Question Answer Comments ICU transfer: Yes Intubation: No Date Activated Date Inactivated Comments 11/12/2024 5:45 PM 11/13/2024 2:07 PM Question Answer Comments ICU transfer: Yes Intubation: No Date Activated Date Inactivated Comments 11/12/2024 5:45 PM 11/12/2024 5:45 PM Question Answer Comments ICU transfer: Yes Intubation: No Date Activated Date Inactivated Comments 10/27/2024 12:55 PM 11/11/2024 8:10 PM Question Answer Comments ICU transfer: Yes Intubation: No Date Activated Date Inactivated Comments 10/22/2024 6:51 PM 10/27/2024 12:55 PM Healthcare Agents on File Name Relationship Healthcare Agent Relationshi p Communication Deshawn [facility] Agent Healthcare Agents on File Name Relationship Healthcare Agent Relationshi p Communication Deshawn [facility] Care Agent Documents on File Type Date Recorded Patient Diesel Crane Operator Expl anation Power of Rotary Helper 10/24/2024 11:24 AM DNR (Do Not Resuscitate) 01/26/2024 11:24 AM Advance Directives and Living Will 10/01/2022 1:19 PM Power of Rotary Helper 10/01/2022 1:19 PM DNR (Do Not Resuscitate) 11/15/2024 10:00 AM [place] DNR Form DNR (Do Not Resuscitate) 11/11/2024 12:26 PM [place] DNR Form Date Activated Date Inactivated Comments 11/13/2024 2:07 PM 11/15/2024 3:50 PM Date Activated Date Inactivated Comments 11/12/2024 5:45 PM 11/13/2024 2:07 PM Date Activated Date Inactivated Comments 11/12/2024 5:45 PM 11/12/2024 5:45 PM Date Activated Date Inactivated Comments 10/27/2024 12:55 PM 11/11/2024 8:10 PM Date Activated Date Inactivated Comments 10/22/2024 6:51 PM 10/27/2024 12:55 PM Healthcare Agents on File Name Relationship Healthcare Agent Relationshi p Communication Deshawn [facility] Agent Documents on File Type Date Recorded Patient Diesel Crane Operator Expl anation Power of Rotary Helper 10/24/2024 11:24 AM DNR (Do Not Resuscitate) 01/26/2024 11:24 AM Advance Directives and Living Will 10/01/2022 1:19 PM Power of Rotary Helper 10/01/2022 1:19 PM DNR (Do Not Resuscitate) 11/15/2024 10:00 AM [place] DNR Form DNR (Do Not Resuscitate) 11/11/2024 12:26 PM [place] DNR Form Healthcare Agents on File Name Relationship Healthcare Agent Relationshi p Communication Deshawn [facility] Care Agent Healthcare Agents on File Name Relationship Healthcare Agent Relationshi p Communication Deshawn [facility] Care Agent Healthcare Agents on File Name Relationship Healthcare Agent Relationshi p Communication Deshawn [facility] Care Agent Documents on File Type Date Recorded Patient Diesel Crane Operator Expl anation Power of Rotary Helper 10/24/2024 11:24 AM DNR (Do Not Resuscitate) 01/26/2024 11:24 AM Advance Directives and Living Will 10/01/2022 1:19 PM Power of Rotary Helper 10/01/2022 1:19 PM DNR (Do Not Resuscitate) 12/20/2024 2:49 PM [place] DNR Form DNR (Do Not Resuscitate) 11/15/2024 10:00 AM [place] DNR Form DNR (Do Not Resuscitate) 11/11/2024 12:26 PM [place] DNR Form Date Activated Date Inactivated Comments 12/13/2024 1:29 PM 12/20/2024 8:14 PM Date Activated Date Inactivated Comments 12/09/2024 6:15 AM 12/13/2024 1:29 PM Question Answer Comments ICU transfer: No Date Activated Date Inactivated Comments 11/13/2024 2:07 PM 11/15/2024 3:50 PM Date Activated Date Inactivated Comments 11/12/2024 5:45 PM 11/13/2024 2:07 PM Date Activated Date Inactivated Comments 11/12/2024 5:45 PM 11/12/2024 5:45 PM Question Answer Comments ICU transfer: Yes Intubation: No Healthcare Agents on File Name Relationship [facility]wnvibha [facility] Agent ([employer]) Documents on File Type Date Recorded Patient Diesel Crane Operator Expl anation DNR (Do Not Resuscitate) 12/21/2024 11:18 AM Power of Rotary Helper 10/24/2024 11:24 AM DNR (Do Not Resuscitate) 01/26/2024 11:24 AM Advance Directives and Living Will 10/01/2022 1:19 PM Power of Rotary Helper 10/01/2022 1:19 PM DNR (Do Not Resuscitate) 12/20/2024 2:49 PM [place] DNR Form DNR (Do Not Resuscitate) 11/15/2024 10:00 AM [place] DNR Form DNR (Do Not Resuscitate) 11/11/2024 12:26 PM [place] DNR Form Date Activated Date Inactivated Comments 12/13/2024 1:29 PM 12/20/2024 8:14 PM Date Activated Date Inactivated Comments 12/09/2024 6:15 AM 12/13/2024 1:29 PM Question Answer Comments ICU transfer: No Date Activated Date Inactivated Comments 11/13/2024 2:07 PM 11/15/2024 3:50 PM Date Activated Date Inactivated Comments 11/12/2024 5:45 PM 11/13/2024 2:07 PM Date Activated Date Inactivated Comments 11/12/2024 5:45 PM 11/12/2024 5:45 PM Question Answer Comments ICU transfer: Yes Intubation: No Healthcare Agents on File Name Relationship Healthcare Agent Relationshi p Communication Deshawnvibha [facility] Agent Assessments Diagnosis Chronic kidney disease, stage IV (severe) (HCC) Chronic kidney disease, Stage IV (severe) Pre-transplant evaluation for lung transplant Summary Purpose Family History No Family History Records FoundNo Family History Records FoundNo Family History Records FoundNo Family History Records FoundNo Family History Records FoundNo Family History Records FoundNo Family History Records FoundNo Family History Records Found Medications Administered Section Inactive Administered Medications - up to 3 most recent administrations Medication Order MAR Action Action Date Dose Rate Site HYDROcodone 5 mg - acetaminophen 325 mg tablet (NORCO) 1-2 tablet, ORAL, EVERY 4 HOURS NEEDED, Starting 10/25/19 at 0917, Until Diane 10/26/19 at 0305, Moderate Pain (4-6) - Enteral, Severe Pain (7-10) - Enteral, Give 1 tab for moderate pain Give 2 tabs for severe pain, Reason for Referral Specialty Diagnoses / Procedures Referred By Contac t Referred To Contact Arthur Medrano [facility] [place] [address] Referral ID Status Reason Start Date Expiration Date Visits Re quested Visits Authorized [id number] Closed 1 1 Specialty Diagnoses / Procedures Referred By Contac t Referred To Contact Radiology Diagnoses End stage renal disease (HCC) Procedures IR CVC tunneled catheter removal Radha Meza MD [address] [place] [address] Referral ID Status Reason Start Date Expiration Date Visits Re quested Visits Authorized [id number] Closed 09/28/2022 03/27/2023 1 1 Specialty Diagnoses / Procedures Referred By Contac t Referred To Contact Radiology Diagnoses End stage renal disease (HCC) Procedures IR fistulagram Radha Meza MD [address] [place] [address] Referral ID Status Reason Start Date Expiration Date V isits Requested Visits Authorized [id number] Pending Review 06/25/2023 06/24/2024 1 1 Additional Source Comments Source Comments (unrecognize d section and content) In the event this informatio n is protected by the Federal Confidentiality of Alcohol and Drug Abuse Patient Records regulations: The Federal rules restrict any use of the information to criminally investigate or prosecute any alcohol or drug abuse patient.[facility] the event this information is protected by the Federal Confidentiality of Alcohol and Drug Abuse Patient Records regulations: The Federal rules restrict any use of the information to criminally investigate or prosecute any alcohol or drug abuse patient.[facility] the event this information is protected by the Federal Confidentiality of Alcohol and Drug Abuse Patient Records regulations: The Federal rules restrict any use of the information to criminally investigate or prosecute any alcohol or drug abuse patient.[facility] the event this information is protected by the Federal Confidentiality of Alcohol and Drug Abuse Patient Records regulations: The Federal rules restrict any use of the information to criminally investigate or prosecute any alcohol or drug abuse patient.[facility] INFORMATION SOURCE (unrecogn ized section and content) DATE CREATED AUTHOR 11/03/2019 [facility] DATE CREATED AUTHOR AUTHOR'S ORGANIZ ATION 11/29/2020 [employer] [facility] [employer] DATE CREATED AUTHOR AUTHOR'S ORGANIZ ATION 09/12/2021 [facility] DATE CREATED AUTHOR AUTHOR'S ORGANIZ ATION 06/05/2022 [facility] DATE CREATED AUTHOR AUTHOR'S ORGANIZ ATION 09/09/2024 [facility] DATE CREATED AUTHOR AUTHOR'S ORGANIZ ATION 09/16/2024 [facility] DATE CREATED AUTHOR AUTHOR'S ORGANIZ ATION 12/28/2024 [facility] DATE CREATED AUTHOR AUTHOR'S ORGANIZ ATION 12/29/2024 [facility] Reason for Visit (unrecogniz ed section and content) Status Reason Specialty Diagnoses / Procedures Referred By Contact Referred To Contact Diagnoses Chronic kidney disease (CKD), stage IV (severe) (HCC) Procedures RENAL BX. PERCUTANEOUS BIOPSY KIDNEY PERCUTANEOUS [place] Interventional Radiology [address] [place] [address] Reason Comments New Patient Eval for perm access placement; 06/03/22 Specialty Diagnoses / Procedures Referred By Contac t Referred To Contact Diagnoses Dependence on renal dialysis (HCC) End stage renal disease (HCC) Dependence on renal dialysis (CMS/HCC) (HCC) [Z99.2] End stage renal disease (HCC) [N18.6] Procedures UT CRTJ ARVEN FSTL XCP DIR TL ANAST NONAUTOG GRF LEFT UPPER EXTREMITY ARTERIOVENOUS GRAFT PLACEMENT Raffy Fernandez MD [address] [place] [address] [address] [place] [address] [place] [address] Referral ID Status Reason Start Date Expiration Date Visits Re quested Visits Authorized [id number] 1 1 Reason Onset Date Comments Surgery Scheduling 07/01/2022 Referral ID Status Reason Start Date Expiration Date Visits Re quested Visits Authorized [id number] 1 1 Specialty Diagnoses / Procedures Referred By Contac t Referred To Contact Radiology Diagnoses End stage renal disease (HCC) Procedures IR CVC tunneled catheter removal Radha Meza MD [address] [place] [address] Referral ID Status Reason Start Date Expiration Date Visits Re quested Visits Authorized [id number] Closed 09/28/2022 03/27/2023 1 1 Reason Comments Abnormal Labs Pt sent here from di alysis for elevated K+. Had dialysis yesterday. Reason Comments Rectal Bleeding Pt presents to ED fo r rectal bleeding. Pt reports onset today. Pt reports dark and bright red blood in stool. Pt reports severe abdominal cramping right before a bowel movement. Specialty Diagnoses / Procedures Referred By Gustavo t Referred To Contact Diagnoses Gastrointestinal hemorrhage, unspecified gastrointestinal hemorrhage type Procedures [email or web address] Gabriel Delgado MD [address] [place] [address] Phone: tel: fax: [facility] Cardiac Thoracic Vascular Intensive Care Unit CTV ICU T1 [address] [place] [address] Phone: tel: Referral ID Status Reason Start Date Expiration Date Visits Re quested Visits Authorized [id number] 1 1 Reason Comments Hypertension Treated with medicat ion, pt took it this morning and was high. Pt was able to ambulate without difficulty. Alert and oriented x's 4 Reason Comments Shortness of Breath Pt arrived SOB, miss ed HD today. EMS found pt 50% on RA. Denies chest pain. Pt is T// HD Specialty Diagnoses / Procedures Referred By Gustavo jones Referred To Contact Diagnoses Pulmonary edema, acute (HCC) Procedures . Radha Kevin, [address] [place] [address] Phone: tel: fax: [facility] EMERGENCY DEPT [address] [place] [address] Phone: tel: Referral ID Status Reason Start Date Expiration Date Visits Re quested Visits Authorized [id number] 1 1 Reason Comments Shortness of Breath Patient presents to ED via triage with SOB. Patient states she's missed a couple dialysis tx. Specialty Diagnoses / Procedures Referred By Gustavo jones Referred To Contact Diagnoses Shortness of breath Hyperkalemia Acute pulmonary edema (HCC) Procedures . John Mayes, [address] [place] [address] Phone: tel: fax: [facility] Cardiac Progressive Care Unit PCU 5W [address] [place] [address] Phone: tel: Referral ID Status Reason Start Date Expiration Date Visits Re quested Visits Authorized [id number] 1 1 Reason Comments Fall Pt presents to ED af ter a fall. Pt family member states she had a jerking movement and began to fall when he was able to catch her. Pt denies hitting head or LOC. Pt states she is on dialysis and goes 3 times a week. Pt states she has been having jerking movements since yesterday evening. Reason Comments Altered Mental Status Pt from office aft er angiogram of dialysis cath where she went unresponsive during procedure. Pt received 25mcg fentynal and 0.5 versed and 2 narcan prior to arrival. Pt responding to verbal stimuli and denies complains Reason Comments Altered Mental Status Pt came from [facility]. Squad was called for weakness and altered mental status. Pt is not diabetic. Gcs 14 due to confusion a&ox2. Pt bgl was 99. Pt fistula is in left arm . Specialty Diagnoses / Procedures Referred By Gustavo t Referred To Contact Diagnoses Buttock wound, left, initial encounter Altered mental status, unspecified altered mental status type Sepsis, due to unspecified organism, unspecified whether acute organ dysfunction present (HCC) Procedures .. Loni Zambrano MD [address] [place] [address] Phone: tel: fax: [facility] Intensive Care Unit ICU [address] [place] [address] Phone: tel: Referral ID Status Reason Start Date Expiration Date Visits Re quested Visits Authorized [id number] 1 1 Reason Comments Wound Check EMS from [place] f or bleeding fistula in left upper arm. DC from [facility] to [place] previously. Specialty Diagnoses / Procedures Referred By Gustavo jones Referred To Contact Diagnoses Wound dehiscence Procedures .. Edson Velazquez MD [address] [place] [address] Phone: tel: fax: [facility] Cardiac Vascular Progressive Care Unit PCC 1C [address] [place] [address] Phone: tel: Referral ID Status Reason Start Date Expiration Date Visits Re quested Visits Authorized 1 1 Reason Comments Other C/O low hgb from [facility] 6.5 this am during dialysis pt has no complaints Reason Comments Post-op 1st PO LUE explorati on + hematoma evacuation 11/06/24, s/p LUE AVG excision 11/02/24 Reason Comments Post-op 2nd PO LUE explorati on + hematoma evacuation 11/06/24, s/p LUE AVG excision 11/02/24 Reason Comments Fall Pt presents to ED fo r mechanical fall while at dinner. Pt family states pt fell backwards and hit her head and now has lump on head, denies LOC. Denies blood thinners. Specialty Diagnoses / Procedures Referred By Contac t Referred To Contact Diagnoses Closed head injury, initial encounter Fall, initial encounter Fall (on)(from) sidewalk curb, initial encounter Procedures . Magalys Can MD [address] [place] [address] Phone: tel: fax: [facility]SE[facility] [address] [place] [address] Phone: tel: Referral ID Status Reason Start Date Expiration Date Visits Re quested Visits Authorized [id number] 1 1 Reason Comments Altered Mental Status Per [place] Mateo gerber, pt was altered last night. Sent to ED for eval. Pt denies any complaints. Care Teams (unrecognized sec tion and content) Building Appraiser Relationship Specialty Start Date End Date Christiano Grove, DO [address] [place] [phone] PCP - General Family Medicine 10/25/19 Building Appraiser Relationship Specialty Start Date End Date Christiano Grove, DO [address] [place] [phone] PCP - General Family Medicine 10/25/19 Building Appraiser Relationship Specialty Start Date End Date Christiano Grove, DO [address] [place] [address] PCP - General 09/17/16 Carlos Manuel Wang MD [address] [place] [address] Nephrology 06/24/22 Raffy Fernandez MD [address] [place] [address] Consulting Physician Vascular Surgery 06/24/22 [facility] 02/03/22 Building Appraiser Relationship Specialty Start Date End Date Christiano Grove, DO [address] [place] [address] PCP - General 09/17/16 Carlos Manuel Wang MD [address] [place] [address] Nephrology 06/24/22 Raffy Fernandez MD [address] [place] [address] Consulting Physician Vascular Surgery 06/24/22 [facility] 02/03/22 Building Appraiser Relationship Specialty Start Date End Date Christiano Grove, DO [address] [place] [address] PCP - General 09/17/16 Carlos Manuel Wang MD [address] [place] [address] Nephrology 06/24/22 Raffy Fernandez MD [address] [place] [address] Consulting Physician Vascular Surgery 06/24/22 [facility] 02/03/22 Building Appraiser Relationship Specialty Start Date End Date Christiano Grove, DO [address] [place] [address] PCP - General 09/17/16 Carlos Manuel Wang MD [address] [place] [address] Nephrology 06/24/22 Raffy Fernandez MD [address] [place] [address] Consulting Physician Vascular Surgery 06/24/22 [facility] 02/03/22 Building Appraiser Relationship Specialty Start Date End Date Christiano Grove, DO [address] [place] [address] PCP - General 09/17/16 Carlos Manuel Wang MD [address] [place] [address] Nephrology 06/24/22 Raffy Fernandez MD [address] [place] [address] Consulting Physician Vascular Surgery 06/24/22 [facility] 02/03/22 Building Appraiser Relationship Specialty Start Date End Date Christiano Grove, DO [address] [place] [address] PCP - General 09/17/16 Carlos Manuel Wang MD [address] [place] [address] Nephrology 06/24/22 Raffy Fernandez MD [address] [place] [address] Consulting Physician Vascular Surgery 06/24/22 [facility] 02/03/22 Building Appraiser Relationship Specialty Start Date End Date Christiano Grove DO [address] [place] [address] PCP - General 09/17/16 Carlos Manuel Wang MD [address] [place] [address] Nephrology 06/24/22 Raffy Fernandez MD [address] [place] [address] Consulting Physician Vascular Surgery 06/24/22 [facility] 02/03/22 Building Appraiser Relationship Specialty Start Date End Date Christiano Grove DO [address] [place] [address] PCP - General 09/17/16 Carlos Manuel Wang MD [address] [place] [address] Nephrology 06/24/22 Raffy Fernandez MD [address] [place] [address] Consulting Physician Vascular Surgery 06/24/22 [facility] 02/03/22 Building Appraiser Relationship Specialty Start Date End Date Christiano Grove DO [address] [place] [address] PCP - General 09/17/16 Carlos Manuel Wang MD [address] [place] [address] Nephrology 06/24/22 Raffy Fernandez MD [address] [place] [address] Consulting Physician Vascular Surgery 06/24/22 [facility] 02/03/22 Building Appraiser Relationship Specialty Start Date End Date Christiano Grove DO [address] [place] [address] PCP - General 09/17/16 Carlos Manuel Wang MD [address] [place] [place] [address] Nephrology 06/24/22 Raffy Fernandez MD [address] [place] [address] Consulting Physician Vascular Surgery 06/24/22 [facility] 02/03/22 Building Appraiser Relationship Specialty Start Date End Date Christiano Grove DO [address] [place] [address] PCP - General 09/17/16 Carlos Manuel Wang MD [address] [place] [address] Nephrology 06/24/22 Raffy Fernandez MD [address] [place] [address] Consulting Physician Vascular Surgery 06/24/22 [facility] 02/03/22 Building Appraiser Relationship Specialty Start Date End Date Christiano Grove DO [address] [place] [address] PCP - General 09/17/16 Carlos Manuel Wang MD [address] [place] [address] Nephrology 06/24/[address] Fern[address] [place] [address] Consulting Physician Vascular Surgery 06/24/22 [facility] 02/03/22 Building Appraiser Relationship Specialty Start Date End Date Christiano Grove DO [address] [place] [address] PCP - General 09/17/16 Carlos Manuel Wang MD [address] [place] [address] Nephrology 06/24/22 Raffy Fernandez MD [address] [place], [place] [id number] Consulting Physician Vascular Surgery 06/24/22 [facility] 02/03/22 Building Appraiser Relationship Specialty Start Date End Date Christiano Grove DO [address] [place] [address] PCP - General 09/17/16 Carlos Manuel Wang MD [address] [place] [address] Nephrology 06/24/22 Raffy Fernandez MD [address] [place] [address] Consulting Physician Vascular Surgery 06/24/22 [facility] 02/03/22 Building Appraiser Relationship Specialty Start Date End Date Christiano Grove DO [address] [place] [address] PCP - General 09/17/16 Carlos Manuel Wang MD [address] [place] [address] Nephrology 06/24/22 Raffy Fernandez MD [address] [place] [address] Consulting Physician Vascular Surgery 06/24/22 [facility] 02/03/22 Building Appraiser Relationship Specialty Start Date End Date PjChristiano garciaDO [address] [place], [place] [address] PCP - General 09/17/16 01/19/24 Judit Roxie [address] [place] [phone] PCP - General Family Medicine 01/20/24 Carlos Manuel Wang MD [address] [place] [address] Nephrology 06/24/22 Raffy Frenandez MD [address] [place] [address] Consulting Physician Vascular Surgery 06/24/22 [facility] 02/03/22 Building Appraiser Relationship Specialty Start Date End Date Roxie Spain [address] [place] [phone] PCP - General Family Medicine 01/20/24 Carlos Manuel Wang MD Nephrology 06/24/22 Raffy Fernandez MD [address] [place], [place] [phone] Consulting Physician Vascular Surgery 06/24/[address] [facility] 02/03/22 Building Appraiser Relationship Specialty Start Date End Date Hazel Spaingail [address] [facility] [place] [phone] PCP - General Family Medicine 01/20/24 Carlos Manuel Wang MD Nephrology 06/24/[address] [place] [address] Consulting Physician Vascular Surgery 06/24/22 [facility] 02/03/22 Building Appraiser Relationship Specialty Start Date End Date Roxie Spain [address] [place] [phone] PCP - General Family Medicine 01/20/24 Carlos Manuel Wang MD Nephrology 06/24/22 [address] [place] [address] Consulting Physician Vascular Surgery 06/24/22 [facility] 02/03/22 Building Appraiser Relationship Specialty Start Date End Date Roxie Spain [address] [place] [address] PCP - General Family Medicine 01/20/24 Carlos Manuel Wang MD Nephrology 06/24/[address] [place] [address] Consulting Physician Vascular Surgery 06/24/22 [facility] 02/03/22 Building Appraiser Relationship Specialty Start Date End Date Roxie Spain [address] [place] [phone] PCP - General Family Medicine 01/20/24 Carlos Manuel Wang MD Nephrology 06/24/22 Raffy Fernandez MD [address] [place] [address] Consulting Physician Vascular Surgery 06/24/22 [facility] 02/03/22 Building Appraiser Relationship Specialty Start Date End Date Roxie Spain [address] [place] [phone] PCP - General Family Medicine 01/20/24 Carlos Manuel Wang MD Nephrology 06/24/22 Raffy Fernandez MD [address] [place] [address] Consulting Physician Vascular Surgery 06/24/22 [facility] 02/03/22 Building Appraiser Relationship Specialty Start Date End Date Roxie Spain [address] [place] [phone] PCP - General Family Medicine 01/20/24 Carlos Manuel Wang MD Nephrology 06/24/22 Raffy Fernandez MD [address] [place] [address] Consulting Physician Vascular Surgery 06/24/22 [facility] 02/03/22 Building Appraiser Relationship Specialty Start Date End Date Roxie Spain [address] [place] [address] PCP - General Family Medicine 01/20/24 Carlos Manuel Wang MD Nephrology 06/24/22 Raffy Fernandez MD [address] [place] [address] Consulting Physician Vascular Surgery 06/24/22 [facility] [place] [facility] 02/03/22 [facility] 11/14/24 Building Appraiser Relationship Specialty Start Date End Date Roxie Spain [address] [place] [address] PCP - General Family Medicine 01/20/24 Carlos Manuel Wang MD Nephrology 06/24/22 Raffy Fernandez MD [address] [place], [place] [id number] Consulting Physician Vascular Surgery 06/24/22 [facility]22 [facility]/14[facility] Building Appraiser Relationship Specialty Start Date End Date Roxie Spain [address] [facility] [place] [phone] PCP - General Family Medicine 01/20/24 Carlos Manuel Wagn MD Nephrology 06/24/22 Raffy Fernandez MD [address] [place] [address] Consulting Physician Vascular Surgery 06/24/22 [facility] [place] [facility] 02/03/22 [facility] 11/14/24 Building Appraiser Relationship Specialty Start Date End Date Roxie Spain [address] [place] [phone] PCP - General Family Medicine 01/20/24 Carlos Manuel Wang MD Nephrology 06/24/22 Raffy Fernandez MD [address] [place] [address] Consulting Physician Vascular Surgery 06/24/22 [facility] [place] [facility] 02/03/22 [facility] 11/14/24 Building Appraiser Relationship Specialty Start Date End Date Roxie Spain [address] [place] [phone] PCP - General Family Medicine 01/20/24 Carlos Manuel Wang MD Nephrology 06/24/22 Raffy Fernandez MD [address] [place] [address] Consulting Physician Vascular Surgery 06/24/22 [facility] 11/14/24 Building Appraiser Relationship Specialty Start Date End Date Roxie Spain [address] [place] [phone] PCP - General Family Medicine 01/20/24 Carlos Manuel Wang MD Nephrology 06/24/22 Raffy Fernandez MD [address] [place] [address] Consulting Physician Vascular Surgery 06/24/22 [facility] 02/03/22 [facility]/14[facility] Building Appraiser Relationship Specialty Start Date End Date Roxie Spain [address] [place] [address] PCP - General Family Medicine 01/20/24 Carlos Manuel Wang MD Nephrology 06/24/22 Raffy Fernandez MD [address] [place] [address] Consulting Physician Vascular Surgery 06/24/22 [facility] [place] [facility] 11/14/24 Building Appraiser Relationship Specialty Start Date End Date Roxie Spain [address] [place] [address] PCP - General Family Medicine 01/20/24 Carlos Manuel Wang MD Nephrology 06/24/22 Raffy Fernandez MD [address] [place] [address] Consulting Physician Vascular Surgery 06/24/22 [facility] [place] [facility] 02/03/22 [facility] 11/14/24 Scheduled Active and Recently Administ ered Medications (unrecognized section and content) Medication Order 07/15/2022 07/16/2022 07/17/2022 acetaminophen (Tylenol) tablet 500 mg 500 mg, Oral, Once, On Wed07/17/22 at 1000, For 1 dose, Preprocedure, Maximum dose of acetaminophen is 4000 mg from all sources in 24 hours. Do not administer if patient has taken tylenol <4 hours earlier. Do not give if contraindicated ie. patient has active liver disease or cirrhosis. 1000 (Canceled Entry - Provider: Automatic Discharge Provider - Comment: Automatically canceled at discontinue of medication order) ceFAZolin in dextrose 4% (Ancef) IVPB 2,000 mg 2,000 mg, IntraVENous, Administer over 30 Minutes, Once, On Wed07/17/22 at 1000, For 1 dose, Preprocedure, Administer within 1 hour prior to incision. Recommend to repeat in 3-4 hours after initial dose if still intra-op. premix bag, Suspected Indication (Select all that apply): Surgical Prophylaxis 1000 (Canceled Entry - Provider: Automatic Discharge Provider - Comment: Automatically canceled at discontinue of medication order) famotidine (Pepcid) tablet 20 mg 20 mg, Oral, Once, On Wed07/17/22 at 1000, For 1 dose, Preprocedure 1000 (Canceled Entry - Provider: Automatic Discharge Provider - Comment: Automatically canceled at discontinue of medication order) sodium chloride 0.9% (NS) flush 10 mL 10 mL, IntraVENous, Every 12 hours scheduled (2 times per day), First dose on Wed07/17/22 at 1000, Preprocedure 1000 (Canceled Entry - Provider: Automatic Discharge Provider - Comment: Automatically canceled at discontinue of medication order) sodium chloride 0.9% (NS) flush 5-40 mL 5-40 mL, IntraVENous, Every 12 hours, First dose on Wed07/17/22 at 1000, Preprocedure, For Line Patency: Peripheral IV = 5 mL; Midline or Central Line = 10 mL/lumen. If following IV push medication, administer flush at same rate as the IV push. Flush volume is determined by type of infusion therapy being given. For non-viscous solutions use: Peripheral IV = 5 mL Midline or Central Line = 10 mL/lumen For viscous solutions (i.e. blood components, parenteral nutrition, contrast media, or after obtaining blood sample) use: Peripheral IV = 10 mL Midline or Central Line = 20 mL/lumen 1000 (Canceled Entry - Provider: Automatic Discharge Provider - Comment: Automatically canceled at discontinue of medication order) Continuous Medication Order 07/15/2022 07/16/2022 07/17/2022 sodium chloride 0.9 % infusion 50 mL/hr, IntraVENous, Continuous, Starting on Wed07/17/22 at 1000, Preprocedure, Upon admission to sameday - please start iv if patient does not have iv access. 1000 (Canceled Entry - Provider: Automatic Discharge Provider - Comment: Automatically canceled at discontinue of medication order) PRN Medication Order 07/15/2022 07/16/2022 07/17/2022 ALPRAZolam (Xanax) disintegrating tablet 0.25 mg 0.25 mg, Oral, PRN, anxiety, Starting on Wed07/17/22 at 0955, For 1 dose, Preprocedure, Using dry hands, place tablet on top of tongue and allow to disintegrate. Administration with water is not necessary. sodium chloride 0.9 % infusion 5-250 mL/hr, IntraVENous, PRN, if patient receiving piggyback infusions and maintenance fluids are not ordered OR KVO fluids to protect IV site / prevent frequent line interruptions / long duration, Starting on Wed07/17/22 at 0954, Preprocedure, For piggyback infusion, administer at same rate as piggyback for a total of 25 mL. Enter 25 mL into dose field and piggyback rate into rate field of order. If piggyback is infusing at a rate less than 100 mL/hr, enter 25 mL into dose field and 100 mL/hr into rate field of order. For KVO fluids, enter rate of 20 mL/hr or less into rate field of order. sodium chloride 0.9 % infusion 5-250 mL/hr, IntraVENous, PRN, if patient receiving piggyback infusions and maintenance fluids are not ordered OR KVO fluids to protect IV site / prevent frequent line interruptions/ long duration, Starting on Wed07/17/22 at 0955, Preprocedure, For piggyback infusion, administer at same rate as piggyback for a total of 25 mL. Enter 25 mL into dose field and piggyback rate into rate field of order. If piggyback is infusing at a rate less than 100 mL/hr, enter 25 mL into dose field and 100 mL/hr into rate field of order. For KVO fluids, enter rate of 20 mL/hr or less into rate field of order. sodium chloride 0.9% (NS) flush 10 mL 10 mL, IntraVENous, PRN, line care, Starting on Wed07/17/22 at 0955, Preprocedure, After every IV line use sodium chloride 0.9% (NS) flush 5-40 mL 5-40 mL, IntraVENous, PRN, line care, After every IV line use, Starting on Wed07/17/22 at 0954, Preprocedure, For Line Patency: Peripheral IV = 5 mL; Midline or Central Line = 10 mL/lumen. If following IV push medication, administer flush at same rate as the IV push. Flush volume is determined by type of infusion therapy being given. For non-viscous solutions use: Peripheral IV = 5 mL Midline or Central Line = 10 mL/lumen For viscous solutions (i.e. blood components, parenteral nutrition, contrast media, or after obtaining blood sample) use: Peripheral IV = 10 mL Midline or Central Line = 20 mL/lumen Scheduled Medication Order 08/05/2022 08/06/2022 08/07/2022 acetaminophen (Tylenol) tablet 1,000 mg (COMPLETED) 1,000 mg, Oral, Once, On Wed08/07/22 at 0815, For 1 dose, Preprocedure, Maximum dose of acetaminophen is 4000 mg from all sources in 24 hours. Do not administer if patient has taken tylenol <4 hours earlier. Do not give if contraindicated ie. patient has active liver disease or cirrhosis. 0832 (Given - Provid er: Hung Pagan RN) ceFAZolin in dextrose 4% (Ancef) IVPB 2,000 mg (COMPLETED) 2,000 mg, IntraVENous, Administer over 30 Minutes, Once, On Wed08/07/22 at 0815, For 1 dose, Preprocedure, Administer within 1 hour prior to incision. Recommend to repeat in 3-4 hours after initial dose if still intra-op. premix bag, Suspected Indication (Select all that apply): Surgical Prophylaxis 0932 (Given - Provid er: PARK Cross CRNA)1140 (Anesthesia Volume Adjustment - Provider: PARK Cross CRNA) famotidine (Pepcid) tablet 20 mg (COMPLETED) 20 mg, Oral, Once, On Wed08/07/22 at 0815, For 1 dose, Preprocedure 0833 (Given - Provid er: Hung Pagan RN) sodium chloride 0.9% (NS) flush 10 mL 10 mL, IntraVENous, Every 12 hours scheduled (2 times per day), First dose on Wed08/07/22 at 0900, Preprocedure 0900 (Canceled Entry - Provider: Automatic Discharge Provider - Comment: Automatically canceled at discontinue of medication order)2100 (Canceled Entry - Provider: Automatic Discharge Provider - Comment: Automatically canceled at discontinue of medication order) sodium chloride 0.9% (NS) flush 10 mL 10 mL, IntraVENous, Every 12 hours scheduled (2 times per day), First dose on Wed08/07/22 at 2100, Recovery (only) 2100 (Canceled Entry - Provider: Automatic Discharge Provider - Comment: Automatically canceled at discontinue of medication order) sodium chloride 0.9% (NS) flush 5-40 mL 5-40 mL, IntraVENous, Every 12 hours, First dose on Wed08/07/22 at 0815, Preprocedure, For Line Patency: Peripheral IV = 5 mL; Midline or Central Line = 10 mL/lumen. If following IV push medication, administer flush at same rate as the IV push. Flush volume is determined by type of infusion therapy being given. For non-viscous solutions use: Peripheral IV = 5 mL Midline or Central Line = 10 mL/lumen For viscous solutions (i.e. blood components, parenteral nutrition, contrast media, or after obtaining blood sample) use: Peripheral IV = 10 mL Midline or Central Line = 20 mL/lumen 0815 (Canceled Entry - Provider: Automatic Discharge Provider - Comment: Automatically canceled at discontinue of medication order)2014 (Canceled Entry - Provider: Automatic Discharge Provider - Comment: Automatically canceled at discontinue of medication order) Continuous Medication Order 08/05/2022 08/06/2022 08/07/2022 lactated ringers infusion 125 mL/hr, IntraVENous, Continuous, Starting on Wed08/07/22 at 1200, Recovery (only) 1200 (Canceled Entry - Provider: Automatic Discharge Provider - Comment: Automatically canceled at discontinue of medication order) sodium chloride 0.9 % infusion 50 mL/hr, IntraVENous, Continuous, Starting on Wed08/07/22 at 0815, Preprocedure, Upon admission to sameday - please start iv if patient does not have iv access. 0834 (New Bag - Prov ider: Hung Pagan RN)0918 (Continued by Anesthesia - Provider: PARK Cross CRNA)1140 (Stopped - Provider: PARK Cross CRNA) PRN Medication Order 08/05/2022 08/06/2022 08/07/2022 ALPRAZolam (Xanax) disintegrating tablet 0.25 mg (COMPLETED) 0.25 mg, Oral, PRN, anxiety, Starting on Wed08/07/22 at 0814, For 1 dose, Preprocedure, Using dry hands, place tablet on top of tongue and allow to disintegrate. Administration with water is not necessary. 0833 (Given - Provid er: Hung Pagan RN) diphenhydrAMINE (BENADryl) injection 12.5 mg 12.5 mg, IntraVENous, Once PRN, itching, Starting on Wed08/07/22 at 1150, For 1 dose, Recovery (only) heparin injection (CANCELED) As needed, Starting on Wed08/07/22 at 0914, Intraprocedure 0914 (Given - Provid er: Raffy Fernandez MD) hydrALAZINE (Apresoline) injection 5 mg(Linked Group 1) 5 mg, IntraVENous, Every 15 min PRN, high blood pressure, for SBP greater than 160 mmHg for 2 consecutive measurements taken from different sites, Starting on Wed08/07/22 at 1150, For 2 doses, Recovery (only), PRN for SBP > 160 for 2 consecutive measurements, and if one of the following conditions is met: 1) If IV labetolol is ineffective. 2) If HR is under 60. 3) If patient has heart block, COPD or asthma. If both labetalol and hydralazine ineffective, notify anesthesia provider. HYDROmorphone (Dilaudid) injection 0.25 mg 0.25 mg, IntraVENous, Every 5 min PRN, moderate pain (4-6), Starting on Wed08/07/22 at 1150, For 4 doses, Recovery (only), Phase I and Phase II- Initial therapy for moderate pain (4-6). Restricted to a 90 minute time frame starting when the patient can verbally state their pain score. If after 2 doses the pain score does not decrease by more than one point, then call the provider. If oral meds are utilized, do not return to initial therapy medications. 1235 (Given - Provid er: Casi Villa RN) HYDROmorphone (Dilaudid) injection 0.5 mg 0.5 mg, IntraVENous, Every 5 min PRN, severe pain (7-10), Starting on Wed08/07/22 at 1150, For 4 doses, Recovery (only), Phase I and Phase II- Initial therapy for severe pain (7-10). Restricted to a 90 minute time frame starting when the patient can verbally state their pain score. If after 2 doses the pain score does not decrease by more than one point, then call the provider. If oral meds are utilized, do not return to initial therapy medications. 1201 (Given - Provid er: Enriqueta Fatima RN) labetalol (Normodyne,Trandate) injection 5 mg(Linked Group 1) 5 mg, IntraVENous, Every 10 min PRN, high blood pressure, for SBP greater than 160 mmHg for 2 consecutive measurements taken from different sites., Starting on Wed08/07/22 at 1150, For 2 doses, Recovery (only), PRN for SBP >160 for 2 consecutive measurements, if HR is 60 or greater. If beta janes is contraindicated (HR less than 60, heart block, COPD or asthma) use hydralazine IV order. LORazepam (Ativan) injection 0.5 mg 0.5 mg, IntraVENous, Once PRN, for anxiety or muscle spasm., Starting on Wed08/07/22 at 1150, For 1 dose, Recovery (only), For IV doses dilute dose with 1ml NS. ondansetron (Zofran) injection 4 mg 4 mg, IntraVENous, Once PRN, nausea, Starting on Wed08/07/22 at 1150, For 1 dose, Recovery (only), Initial antiemetic therapy. Oxidized Cellulose external pad (CANCELED) As needed, Starting on Wed08/07/22 at 1035, Intraprocedure 1035 (Given - Provid er: Raffy Fernandez MD) oxyCODONE (Roxicodone) immediate release tablet 5 mg (COMPLETED) 5 mg, Oral, PRN, moderate pain (4-6), Starting on Wed08/07/22 at 1150, For 1 dose, Recovery (only), PHASE II 1249 (Given - Provid er: Casi Villa RN) sodium chloride 0.9 % bolus 500 mL 500 mL, IntraVENous, at 1,000 mL/hr, Administer over 0.5 Hours, PRN, Anti-nausea, Starting on Wed08/07/22 at 1150, Recovery (only), Indications: Anti-nausea sodium chloride 0.9 % infusion 5-250 mL/hr, IntraVENous, PRN, if patient receiving piggyback infusions and maintenance fluids are not ordered OR KVO fluids to protect IV site / prevent frequent line interruptions / long duration, Starting on Wed08/07/22 at 0814, Preprocedure, For piggyback infusion, administer at same rate as piggyback for a total of 25 mL. Enter 25 mL into dose field and piggyback rate into rate field of order. If piggyback is infusing at a rate less than 100 mL/hr, enter 25 mL into dose field and 100 mL/hr into rate field of order. For KVO fluids, enter rate of 20 mL/hr or less into rate field of order. sodium chloride 0.9 % infusion 5-250 mL/hr, IntraVENous, PRN, if patient receiving piggyback infusions and maintenance fluids are not ordered OR KVO fluids to protect IV site / prevent frequent line interruptions/ long duration, Starting on Wed08/07/22 at 0814, Preprocedure, For piggyback infusion, administer at same rate as piggyback for a total of 25 mL. Enter 25 mL into dose field and piggyback rate into rate field of order. If piggyback is infusing at a rate less than 100 mL/hr, enter 25 mL into dose field and 100 mL/hr into rate field of order. For KVO fluids, enter rate of 20 mL/hr or less into rate field of order. sodium chloride 0.9 % infusion 5-250 mL/hr, IntraVENous, PRN, if patient receiving piggyback infusions and maintenance fluids are not ordered OR KVO fluids to protect IV site / prevent frequent line interruptions/ long duration, Starting on Wed08/07/22 at 1150, Recovery (only), For piggyback infusion, administer at same rate as piggyback for a total of 25 mL. Enter 25 mL into dose field and piggyback rate into rate field of order. If piggyback is infusing at a rate less than 100 mL/hr, enter 25 mL into dose field and 100 mL/hr into rate field of order. For KVO fluids, enter rate of 20 mL/hr or less into rate field of order. sodium chloride 0.9% (NS) flush 10 mL 10 mL, IntraVENous, PRN, line care, Starting on Wed08/07/22 at 0814, Preprocedure, After every IV line use sodium chloride 0.9% (NS) flush 10 mL 10 mL, IntraVENous, PRN, line care, Starting on Wed08/07/22 at 1150, Recovery (only), After every IV line use sodium chloride 0.9% (NS) flush 5-40 mL 5-40 mL, IntraVENous, PRN, line care, After every IV line use, Starting on Wed08/07/22 at 0814, Preprocedure, For Line Patency: Peripheral IV = 5 mL; Midline or Central Line = 10 mL/lumen. If following IV push medication, administer flush at same rate as the IV push. Flush volume is determined by type of infusion therapy being given. For non-viscous solutions use: Peripheral IV = 5 mL Midline or Central Line = 10 mL/lumen For viscous solutions (i.e. blood components, parenteral nutrition, contrast media, or after obtaining blood sample) use: Peripheral IV = 10 mL Midline or Central Line = 20 mL/lumen Linked Groups Order Group 1: labetalol (Normodyne,Trandate) injection 5 mgJump to med 5 mg, IntraVENous, Every 10 min PRN, high blood pressure, for SBP greater than 160 mmHg for 2 consecutive measurements taken from different sites., Starting on Wed08/07/22 at 1150, For 2 doses, Recovery (only)
PRN for SBP >160 for 2 consecutive measurements, if HR is 60 or greater. If beta janes is contraindicated (HR less than 60, heart block, COPD or asthma) use hydralazine IV order.
Or hydrALAZINE (Apresoline) injection 5 mgJump to med 5 mg, IntraVENous, Every 15 min PRN, high blood pressure, for SBP greater than 160 mmHg for 2 consecutive measurements taken from different sites, Starting on Wed08/07/22 at 1150, For 2 doses, Recovery (only)
PRN for SBP > 160 for 2 consecutive measurements, and if one of the following conditions is met: 1) If IV labetolol is ineffective. 2) If HR is under 60. 3) If patient has heart block, COPD or asthma. If both labetalol and hydralazine ineffective, notify anesthesia provider.
Scheduled Medication Order 01/23/2024 01/24/2024 01/25/2024 amLODIPine (Norvasc) tablet 5 mg 5 mg, Oral, Daily, First dose on Wed01/23/24 at 0900 0810 (Given - Provider: Sneha Andrea RN) 0913 (Given - Provider: Lenka Adkins RN) 0803 (Given - Provider: Lenka Adkins RN)0824 (JUN Hold - Provider: Automatic Transfer Provider - Reason: Patient not available)1029 (JUN Unhold - Provider: Automatic Transfer Provider) pantoprazole (ProtoNix) EC tablet 40 mg(Linked Group 1) 40 mg, Oral, 2 times daily before meals, First dose (after last modification) on Wed01/21/24 at 0700, Do not crush, chew, or split. 0504 (Given - Provider: Enriqueta Dial RN)1646 (Given - Provider: Alisia Collier RN) 0601 (Given - Provider: Anne-Marie He RN)1600 (Not Given - Provider: Lenka Adkins RN - Reason: Patient not available) 0601 (Given - Provider: Mary Francisco RN)0824 (MAR Hold - Provider: Automatic Transfer Provider - Reason: Patient not available)1029 (MAR Unhold - Provider: Automatic Transfer Provider)1636 (Given - Provider: Lenka Adkins RN) polyethylene glycol (GoLYTELY) solution 4,000 mL (COMPLETED) 4,000 mL, Oral, Once, On 01/23/24 at 1000, For 1 dose, Preprocedure, Begin at 1600. 240 ml (approximately 8 oz) PO every 10 minutes, until 4 liters are consumed or the rectal effluent is clear. Rapid drinking of each portion is preferred to drinking small amounts continuously. 1642 (Given - Provider: Alisia Collier RN) polyethylene glycol (GoLYTELY) solution 4,000 mL (COMPLETED) 4,000 mL, Oral, Once, On 01/24/24 at 1600, For 1 dose, Prep may be mixed with any clear liquid, please avoid red colored liquids. Begin drinking 1 8oz glass every 15-20 minutes as tolerated until completed or stool is yellow liquid. Please reach out to the GI team if unable to drink prep or stool remains brown. 2007 (Given - Provider: Mary Francisco RN) polyethylene glycol (PEG) 3350 (Miralax) packet 17 g 17 g, Oral, Daily, First dose (after last modification) on 01/22/24 at 0900, 1st line for treatment of constipation - give scheduled if no bowel movement in past 24 hours. 0811 (Given - Provider: Sneha Andrea RN) 0900 (Not Given - Provider: Lenka Adkins RN - Reason: Patient/family refused) 0824 (MAR Hold - Provider: Automatic Transfer Provider - Reason: Patient not available)0900 (Not Given - Provider: Lenka Adkins RN - Reason: Patient/family refused)1029 (MAR Unhold - Provider: Automatic Transfer Provider) sodium chloride 0.9% (NS) flush 10 mL 10 mL, IntraVENous, Every 12 hours scheduled (2 times per day), First dose on 01/23/24 at 1000 1000 (Given - Provider: Alisia Collier RN)2100 (Not Given - Provider: Anne-Marie He RN - Reason: Other - Comment: 1 iv access) 0900 (Given - Provider: Lenka Adkins RN)2100 (Given - Provider: Mary Francisco RN) 0824 (MAR Hold - Provider: Automatic Transfer Provider - Reason: Patient not available)0900 (Given - Provider: Lenka Adkins RN)1029 (JUN Unhold - Provider: Automatic Transfer Provider) sodium chloride 0.9% (NS) flush 10 mL (CANCELED) 10 mL, IntraVENous, Every 12 hours scheduled (2 times per day), First dose on Wed01/23/24 at 1000, Preprocedure 1000 (Given - Provider: Alisia Collier RN)2015 (Given - Provider: Anne-Marie He RN) 0900 (Given - Provider: Lenka Adkins RN) technetium Tc-99m labeled red blood cells (UltraTAG) radio-isotope injection 20 millicurie (COMPLETED) 20 millicurie, IntraVENous, Once, On Wed01/24/24 at 1345, For 1 dose 1345 (Given - Provider: Love Baig [facility]) PRN Medication Order 01/23/2024 01/24/2024 01/25/2024 acetaminophen (Tylenol) suppository 650 mg(Linked Group 2) 650 mg, Rectal, Every 6 hours PRN, mild pain (1-3), fever, For temp greater than 100.4 F (38 C), Starting on Wed01/19/24 at 2335, Administer if oral route cannot be used. Maximum dose of acetaminophen is 4000 mg from all sources in 24 hours. 2017 (See Alternative - Provider: Mary Francisco RN) 08 ([facility] Hold - Provider: Automatic Transfer Provider - Reason: Patient not available)102 ([facility] Unhold - Provider: Automatic Transfer Provider) acetaminophen (Tylenol) tablet 650 mg(Linked Group 2) 650 mg, Oral, Every 6 hours PRN, mild pain (1-3), fever, For temp greater than 100.4 F (38 C), Starting on Wed01/19/24 at 2335, Maximum dose of acetaminophen is 4000 mg from all sources in 24 hours. 2017 (Given - Provider: Mary Francisco RN) 08 (JUN Hold - Provider: Automatic Transfer Provider - Reason: Patient not available)102 ([facility] Unhold - Provider: Automatic Transfer Provider) Diclofenac Sodium (Voltaren) 1 % gel 2 g 2 g, Topical, 2 times daily PRN, Joint pain, Starting on Wed01/21/24 at 0845, Apply to area w joint pain. 823 (JUN Hold - Provider: Automatic Transfer Provider - Reason: Patient not available)1029 (JUN Unhold - Provider: Automatic Transfer Provider) fentaNYL (Sublimaze) injection (COMPLETED) IntraVENous, As needed, Starting on Wed01/24/24 at 1637, Intraprocedure 1637 (Given - Provider: Rayshawn Lawson, RN) hydrALAZINE (Apresoline) injection 10 mg 10 mg, IntraVENous, Every 6 hours PRN, high blood pressure, SBP >160, Starting on Wed01/24/24 at 1829 1835 (Given - Provider: Enriqueta Ricks, CYNTHIA) 0824 (JUN Hold - Provider: Automatic Transfer Provider - Reason: Patient not available)1029 (JUN Unhold - Provider: Automatic Transfer Provider) iopamidol (Isovue-300) 61 % injection 100 mL (COMPLETED) 100 mL, Intra-arTERial, IMG once PRN, contrast, Starting on Wed01/24/24 at 1719, For 1 dose 1721 (Given - Provider: Geraldine Carson, RT (R)) midazolam (Versed) injection (COMPLETED) IntraVENous, As needed, Starting on Wed01/24/24 at 1637, Intraprocedure 1637 (Given - Provider: Rayshawn Lawsno, CYNTHIA) ondansetron (Zofran) injection 4 mg(Linked Group 3) 4 mg, IntraVENous, Every 6 hours PRN, nausea, vomiting, Starting on Wed01/19/24 at 2335, 1st Line. Give IV if patient is unable to take orally. If inadequate response within 60 minutes, proceed to next-line agent or contact provider if no further options ordered. 2337 (See Alternative - Provider: Mary Francisco RN) 0824 (JUN Hold - Provider: Automatic Transfer Provider - Reason: Patient not available)1029 (JUN Unhold - Provider: Automatic Transfer Provider) ondansetron ODT (Zofran-ODT) disintegrating tablet 4 mg(Linked Group 3) 4 mg, Oral, Every 8 hours PRN, nausea, vomiting, Starting on Wed01/19/24 at 2335, 1st Line. If inadequate response within 60 minutes, proceed to next-line agent or contact provider if no further options ordered. Patient should allow tablet to dissolve on tongue. Do not remove from blister pack until just before administering. 2337 (Given - Provider: Mary Francisco RN) 0824 ([facility] Hold - Provider: Automatic Transfer Provider - Reason: Patient not available)1029 ([facility] Unhold - Provider: Automatic Transfer Provider) senna-docusate sodium (Senokot-S) 8.6-50 MG tablet 2 tablet 2 tablet, Oral, Daily PRN, constipation, Starting on 01/23/24 at 0745 0810 (Given - Provider: Sneha Andrea RN) 08 ([facility] Hold - Provider: Automatic Transfer Provider - Reason: Patient not available)102 ([facility] Unhold - Provider: Automatic Transfer Provider) sodium chloride 0.9 % infusion 5-250 mL/hr, IntraVENous, PRN, if patient receiving piggyback infusions and maintenance fluids are not ordered OR KVO fluids to protect IV site / prevent frequent line interruptions/ long duration, Starting on 01/23/24 at 0950, For piggyback infusion, administer at same rate as piggyback for a total of 25 mL. Enter 25 mL into dose field and piggyback rate into rate field of order. If piggyback is infusing at a rate less than 100 mL/hr, enter 25 mL into dose field and 100 mL/hr into rate field of order. For KVO fluids, enter rate of 20 mL/hr or less into rate field of order. 08 ([facility] Hold - Provider: Automatic Transfer Provider - Reason: Patient not available)102 ([facility] Unhold - Provider: Automatic Transfer Provider) sodium chloride 0.9 % infusion 250 mL/hr, IntraVENous, Administer over 10 Minutes, As needed, For use in priming line prior to transfusion (prime via gravity) and flush line post transfusion, Starting on 01/24/24 at 0115, For 1 dose, For use in priming line prior to transfusion (prime via gravity) and flush line post transfusion ONLY. Discontinue once line has been cleared of remaining blood product. 0824 ([facility] Hold - Provider: Automatic Transfer Provider - Reason: Patient not available)102 ([facility] Unhold - Provider: Automatic Transfer Provider) sodium chloride 0.9% (NS) flush 10 mL 10 mL, IntraVENous, PRN, line care, Starting on 01/23/24 at 0950, After every IV line use 08 ([facility] Hold - Provider: Automatic Transfer Provider - Reason: Patient not available)1029 ([facility] Unhold - Provider: Automatic Transfer Provider) No Frequency Medication Order 01/23/2024 01/24/2024 01/25/2024 gelatin absorbable (Gelfoam) 100 sponge - Pyxis ADS Override Pull (COMPLETED) Starting on Wed01/25/24 at 1602, For 1 dose, Matilde Julien: cabinet override 1615 (Given - Provid er: Matilde Julien RN) Linked Groups Order Group 1: pantoprazole (ProtoNix) EC tablet 40 mgJump to med 40 mg, Oral, 2 times daily before meals, First dose (after last modification) on Wed01/21/24 at 0700, Do not crush, chew, or split. Or pantoprazole (ProtoNix) 40 mg in sodium chloride (PF) 0.9 % 10 mL injection (CANCELED) 40 mg, IntraVENous, Administer over 2 Minutes, 2 times daily before meals, First dose (after last modification) on Wed01/21/24 at 0700, Give only if unable to tolerate po. Group 2: acetaminophen (Tylenol) tablet 650 mgJump to med 650 mg, Oral, Every 6 hours PRN, mild pain (1-3), fever, For temp greater than 100.4 F (38 C), Starting on Wed01/19/24 at 2335, Maximum dose of acetaminophen is 4000 mg from all sources in 24 hours. Or acetaminophen (Tylenol) suppository 650 mgJump to med 650 mg, Rectal, Every 6 hours PRN, mild pain (1-3), fever, For temp greater than 100.4 F (38 C), Starting on Wed01/19/24 at 2335, Administer if oral route cannot be used. Maximum dose of acetaminophen is 4000 mg from all sources in 24 hours. Group 3: ondansetron ODT (Zofran-ODT) disintegrating tablet 4 mgJump to med 4 mg, Oral, Every 8 hours PRN, nausea, vomiting, Starting on Wed01/19/24 at 2335, 1st Line. If inadequate response within 60 minutes, proceed to next-line agent or contact provider if no further options ordered. Patient should allow tablet to dissolve on tongue. Do not remove from blister pack until just before administering. Or ondansetron (Zofran) injection 4 mgJump to med 4 mg, IntraVENous, Every 6 hours PRN, nausea, vomiting, Starting on 01/19/24 at 2335, 1st Line. Give IV if patient is unable to take orally. If inadequate response within 60 minutes, proceed to next-line agent or contact provider if no further options ordered. Scheduled Medication Order 02/18/2024 02/19/2024 02/20/2024 amLODIPine (Norvasc) tablet 10 mg 10 mg, Oral, Daily, First dose on 02/19/24 at 0900 0856 (Given - Provider: Regi Galdamez RN) 0913 (Given - Provider: Mike Augustin, CYNTHIA) atorvastatin (Lipitor) tablet 40 mg 40 mg, Oral, Nightly, First dose on 02/19/24 at 2100, On hold since 02/19/2024 at 0831 until manually unheld 0831 (Held by provider - Provider: Radha Kevin, - Reason: Other)2100 (Dose Auto Held) 1921 (Unheld by provider - Provider: Automatic Discharge Provider) azithromycin (Zithromax) tablet 500 mg (CANCELED)(Linked Group 1) 500 mg, Oral, Every 24 hours, First dose on 02/19/24 at 0820, For 3 days, Suspected Indication (Select all that apply): Pneumonia 0856 (Given - Provider: Regi Galdamez RN) calcium acetate (Phoslo) capsule 667 mg 667 mg, Oral, 3 times daily with meals, First dose on 02/19/24 at 0835 0856 (Given - Provider: Regi Galdamez RN)1404 (Given - Provider: Regi Galdamez RN)1822 (Given - Provider: Regi Galdamez, CYNTHIA) 0914 (Given - Provider: Mike Augustin, RN)1259 (Given - Provider: Mike Augustin, CYNTHIA)1700 (Canceled Entry - Provider: Automatic Discharge Provider - Comment: Automatically canceled at discontinue of medication order) cefTRIAXone (Rocephin) 1 g in sodium chloride 0.9 % 50 mL IVPB Mini-Bag Plus(Linked Group 1) 1 g, IntraVENous, at 100 mL/hr, Administer over 30 Minutes, Every 24 hours, First dose on 02/19/24 at 0820, For 5 days, Mini-Bag Plus bag, Suspected Indication (Select all that apply): Pneumonia 0856 (New Bag - Provider: Regi Galdamez RN)925 (Stopped - Provider: Regi Galdamez RN) 913 (New Bag - Provider: Mike Augustin RN)943 (Stopped - Provider: Mike Augustin, CYNTHIA) cholecalciferol (Vitamin D-3) tablet 5,000 Units 5,000 Units, Oral, Daily, First dose on 02/19/24 at 0900 0856 (Given - Provider: Regi Galdamez RN) 912 (Given - Provider: Mike Augustin, CYNTHIA) furosemide (Lasix) injection 80 mg (COMPLETED) 80 mg, IntraVENous, Once, On 02/19/24 at 0445, For 1 dose 0512 (Given - Provider: Efrem Raphael RN) heparin injection 5,000 Units 5,000 Units, SubCUTAneous, Every 12 hours scheduled (2 times per day), First dose on 02/19/24 at 0900 0856 (Given - Provider: Regi Galdamez RN)2051 (Given - Provider: Dorcas Robles RN) 912 (Given - Provider: Mike Augustin, CYNTHIA) ipratropium-albuterol (Duo-Neb) 0.5-2.5 mg/3 mL nebulizer solution 3 mL (CANCELED) 3 mL, Nebulization, 4 times daily, First dose on 02/19/24 at 2315 2315 (Due) 0821 (Given - Provider: Ceilne Gomez)1200 (Not Given - Provider: Celine Gomez - Reason: Patient/family refused) sodium chloride 0.9% (NS) flush 10 mL 10 mL, IntraVENous, Every 12 hours scheduled (2 times per day), First dose on 02/19/24 at 0900 0900 (Given - Provider: Regi Galdamez RN)2053 (Given - Provider: Dorcas Robles RN) 0900 (Not Given - Provider: Mike Augustin, CYNTHIA - Reason: Other) sodium chloride 0.9% (NS) flush 10 mL 10 mL, IntraVENous, Every 12 hours scheduled (2 times per day), First dose on 02/19/24 at 2315 2315 (Given - Provider: Jose Bowman, CYNTHIA) 0915 (Given - Provider: Mike Augustin, CYNTHIA) Continuous Medication Order 02/18/2024 02/19/2024 02/20/2024 nitroGLYCERIN 50 mg in dextrose 5% 250 mL infusion (CANCELED) 5-200 mcg/min (1.5-60 mL/hr), IntraVENous, Continuous, Starting on 02/19/24 at 0425, If Titrate Infusion? is No: Disregard instructions below. If Titrate infusion? is Yes: If rate LESS than 20 mcg/min: Titrate by 5 mcg/min no faster than every 5 minutes to goal. If rate GREATER than or equal to 20 mcg/min: Titrate by 10 mcg/min no faster than every 5 minutes to goal., Titrate Infusion? Yes, Initial Infusion Dose: Other, Other (mcg/min): 50mcg/min, Goal of Therapy is: SBP less than 160 mmHg, Contact Provider if: SBP less than 90 mmHg 0424 (New Bag - Provider: Karis Pulido RN)0434 (Stopped - Provider: Karis Pulido RN) PRN Medication Order 02/18/2024 02/19/2024 02/20/2024 acetaminophen (Tylenol) suppository 650 mg(Linked Group 2) 650 mg, Rectal, Every 6 hours PRN, mild pain (1-3), Fever GREATER than 100.4 F (38 C), Starting on 02/19/24 at 2312, Administer if oral route cannot be used. acetaminophen (Tylenol) tablet 650 mg(Linked Group 2) 650 mg, Oral, Every 6 hours PRN, mild pain (1-3), Fever GREATER than 100.4 F (38 C), Starting on 02/19/24 at 2312, Maximum dose of acetaminophen is 4000 mg from all sources in 24 hours. albuterol (2.5 MG/3ML) 0.083% nebulizer solution 2.5 mg 2.5 mg, Nebulization, Every 4 hours PRN, wheezing, Starting on 02/19/24 at 2312, Initiate RT Bronchodilator Protocol: benzonatate (Tessalon) capsule 100 mg 100 mg, Oral, 3 times daily PRN, cough, Starting on 02/19/24 at 0803, Do not crush or chew. 0807 (Self Administered Via Pump - Provider: Regi Galdamez RN) ipratropium-albuterol (Duo-Neb) 0.5-2.5 mg/3 mL nebulizer solution 3 mL 3 mL, Nebulization, Every 6 hours PRN, shortness of breath, Starting on 02/20/24 at 1215 ondansetron (Zofran) injection 4 mg(Linked Group 3) 4 mg, IntraVENous, Every 6 hours PRN, nausea, vomiting, Starting on 02/19/24 at 0831, 1st Line. Give IV if patient is unable to take orally. If inadequate response within 60 minutes, proceed to next-line agent or contact provider if no further options ordered. ondansetron ODT (Zofran-ODT) disintegrating tablet 4 mg(Linked Group 3) 4 mg, Oral, Every 8 hours PRN, nausea, vomiting, Starting on 02/19/24 at 0831, 1st Line. If inadequate response within 60 minutes, proceed to next-line agent or contact provider if no further options ordered. Patient should allow tablet to dissolve on tongue. Do not remove from blister pack until just before administering. polyethylene glycol (PEG) 3350 (Miralax) packet 17 g 17 g, Oral, Daily PRN, constipation, Starting on 02/19/24 at 0831, 1st line for treatment of constipation - give scheduled if no bowel movement in past 24 hours. 2107 (Given - Provider: Dorcas Robles RN) 0626 (Given - Provider: Jose Bowman RN) sodium chloride 0.9 % infusion 5-250 mL/hr, IntraVENous, PRN, if patient receiving piggyback infusions and maintenance fluids are not ordered OR KVO fluids to protect IV site / prevent frequent line interruptions/ long duration, Starting on 02/19/24 at 0831, For piggyback infusion, administer at same rate as piggyback for a total of 25 mL. Enter 25 mL into dose field and piggyback rate into rate field of order. If piggyback is infusing at a rate less than 100 mL/hr, enter 25 mL into dose field and 100 mL/hr into rate field of order. For KVO fluids, enter rate of 20 mL/hr or less into rate field of order. sodium chloride 0.9 % infusion 5-250 mL/hr, IntraVENous, PRN, if patient receiving piggyback infusions and maintenance fluids are not ordered OR KVO fluids to protect IV site / prevent frequent line interruptions/ long duration, Starting on 02/19/24 at 2312, For piggyback infusion, administer at same rate as piggyback for a total of 25 mL. Enter 25 mL into dose field and piggyback rate into rate field of order. If piggyback is infusing at a rate less than 100 mL/hr, enter 25 mL into dose field and 100 mL/hr into rate field of order. For KVO fluids, enter rate of 20 mL/hr or less into rate field of order. sodium chloride 0.9% (NS) flush 10 mL 10 mL, IntraVENous, PRN, line care, Starting on 02/19/24 at 0831, After every IV line use sodium chloride 0.9% (NS) flush 10 mL 10 mL, IntraVENous, PRN, line care, Starting on 02/19/24 at 2312, After every IV line use Linked Groups Order Group 1: cefTRIAXone (Rocephin) 1 g in sodium chloride 0.9 % 50 mL IVPB Mini-Bag PlusJump to med 1 g, IntraVENous, at 100 mL/hr, Administer over 30 Minutes, Every 24 hours, First dose on 02/19/24 at 0820, For 5 days, Mini-Bag Plus bag, Suspected Indication (Select all that apply): Pneumonia And azithromycin (Zithromax) tablet 500 mg (CANCELED)Jump to med 500 mg, Oral, Every 24 hours, First dose on 02/19/24 at 0820, For 3 days, Suspected Indication (Select all that apply): Pneumonia Group 2: acetaminophen (Tylenol) tablet 650 mgJump to med 650 mg, Oral, Every 6 hours PRN, mild pain (1-3), Fever GREATER than 100.4 F (38 C), Starting on 02/19/24 at 2312, Maximum dose of acetaminophen is 4000 mg from all sources in 24 hours. Or acetaminophen (Tylenol) suppository 650 mgJump to med 650 mg, Rectal, Every 6 hours PRN, mild pain (1-3), Fever GREATER than 100.4 F (38 C), Starting on 02/19/24 at 2312, Administer if oral route cannot be used. Group 3: ondansetron ODT (Zofran-ODT) disintegrating tablet 4 mgJump to med 4 mg, Oral, Every 8 hours PRN, nausea, vomiting, Starting on 02/19/24 at 0831, 1st Line. If inadequate response within 60 minutes, proceed to next-line agent or contact provider if no further options ordered. Patient should allow tablet to dissolve on tongue. Do not remove from blister pack until just before administering. Or ondansetron (Zofran) injection 4 mgJump to med 4 mg, IntraVENous, Every 6 hours PRN, nausea, vomiting, Starting on 02/19/24 at 0831, 1st Line. Give IV if patient is unable to take orally. If inadequate response within 60 minutes, proceed to next-line agent or contact provider if no further options ordered. Scheduled Medication Order 03/01/2024 03/02/2024 03/03/2024 amLODIPine (Norvasc) tablet 10 mg 10 mg, Oral, Daily, First dose on Diane 03/02/24 at 0900 1419 (Given - Provider: Rickie Birmingham RN - Comment: pt getting dialysis at bedside) 0842 (Given - Provider: Rickie Birmingham RN) atorvastatin (Lipitor) tablet 40 mg 40 mg, Oral, Nightly, First dose on Diane 03/02/24 at 2100 6 (Given - Provider: Brenda Wooten RN) 2100 (Canceled Entry - Provider: Automatic Discharge Provider - Comment: Automatically canceled at discontinue of medication order) calcium acetate (Phoslo) capsule 667 mg 667 mg, Oral, 3 times daily with meals, First dose on Diane 03/02/24 at 0800 0815 (Given - Provider: Franco Greer RN)1419 (Given - Provider: Rickie Birmingham RN - Comment: pt getting dialysis at bedside)1729 (Given - Provider: Rickie Birmingham, CYNTHIA) 0842 (Given - Provider: Rickie Birmingham, CYNTHIA)1344 (Given - Provider: Rickie Birmingham, CYNTHIA)1700 (Not Given - Provider: Rickie Birmingham RN - Reason: Patient not available - Comment: pt at dialysis and will be d/c after getting back to floor) calcium gluconate 10 % injection 1,000 mg (COMPLETED) 1,000 mg, IntraVENous, Once, On Diane 03/02/24 at 0635, For 1 dose, Administer over 2 to 5 minutes to lower the risk of ventricular fibrillation. 0700 (Given - Provider: Diandra Gant, CYNTHIA) dextrose 50 % solution 25 g (COMPLETED)(Linked Group 1) 25 g, IntraVENous, Once, On Diane 03/02/24 at 0625, For 1 dose 0702 (Given - Provider: Diandra Gant, CYNTHIA) heparin injection 5,000 Units 5,000 Units, SubCUTAneous, Every 12 hours scheduled (2 times per day), First dose on Wed03/02/24 at 0900 1419 (Given - Provider: Rickie Birmingham RN - Comment: pt getting dialysis at bedside)2100 (Not Given - Provider: Brenda Wooten RN - Reason: Patient/family refused) 0900 (Not Given - Provider: Rickie Birmingham RN - Reason: Patient/family refused)2100 (Canceled Entry - Provider: Automatic Discharge Provider - Comment: Automatically canceled at discontinue of medication order) insulin regular (HumuLIN R,NovoLIN R) injection 10 Units (COMPLETED)(Linked Group 1) 10 Units, IntraVENous, Once, On Wed03/02/24 at 0625, For 1 dose 0701 (Given - Provider: Diandra Gant, CYNTHIA) levETIRAcetam (Keppra) tablet 500 mg 500 mg, Oral, Daily, First dose on Wed03/02/24 at 0900, Do not crush or chew. 0900 (Not Given - Provider: Rickie Birmingham RN - Reason: Patient/family refused - Comment: states she does not take this medication anymore) 0900 (Not Given - Provider: Rickie Birmingham RN - Reason: Patient/family refused - Comment: pt states she does not take this med anymore) PRN Medication Order 03/01/2024 03/02/2024 03/03/2024 acetaminophen (Tylenol) suppository 650 mg(Linked Group 2) 650 mg, Rectal, Every 6 hours PRN, mild pain (1-3), fever, For temp greater than 100.4 F (38 C), Starting on Diane 03/02/24 at 0753, Administer if oral route cannot be used. Maximum dose of acetaminophen is 4000 mg from all sources in 24 hours. acetaminophen (Tylenol) tablet 650 mg(Linked Group 2) 650 mg, Oral, Every 6 hours PRN, mild pain (1-3), fever, For temp greater than 100.4 F (38 C), Starting on Diane 03/02/24 at 0753, Maximum dose of acetaminophen is 4000 mg from all sources in 24 hours. dextrose 5 % infusion 100 mL/hr, IntraVENous, PRN, Low Blood Sugar, Starting on Diane 03/02/24 at 0621, Blood glucose less than 70 mg/dL and patient NOT ALERT or NPO and does not have IV access., After administration, attempt intravenous access and start D5W at 100 mL/hr. Repeat blood glucose in 15 minutes x2 and notify provider. dextrose 50 % solution 12.5 g 12.5 g, IntraVENous, PRN, low blood sugar, Starting on Diane 03/02/24 at 0621, Blood glucose less than 70 mg/dL and patient NOT ALERT or NPO., If patient does not respond within 5 minutes, repeat dose x1. Start D5W at 100 mL/hour until ordering provider can be reached. Repeat blood glucose in 15 minutes. If blood glucose is less than 70 mg/dL, repeat treatment and recheck blood glucose in 15 minutes x2. If using Glucostabilizer, dose as instructed per system. glucagon (human recombinant) injection 1 mg 1 mg, IntraMUSCular, PRN, low blood sugar, Blood glucose less than 70 mg/dL and patient NOT ALERT or NPO and does not have IV access., Starting on Diane 03/02/24 at 0621, After administration, attempt intravenous access and start D5W at 100 mL/hr. Repeat blood glucose in 15 minutes x2 and notify provider. glucose oral gel 15 g 15 g, Oral, As needed, low blood sugar, Starting on Diane 03/02/24 at 0621, If blood glucose less than 50 mg/dL and patient ALERT and NOT NPO, give 2 tubes glucose gel. If blood glucose less than 70 mg/dL and patient ALERT and NOT NPO, give 1 tube glucose gel. Repeat blood glucose in 15 minutes. If blood glucose is less than 70 mg/dL, repeat treatment and recheck blood glucose in 15 minutes x2 and notify provider. 823 (Given - Provider: Randy Greer RN) hydrALAZINE (Apresoline) injection 10 mg 10 mg, IntraVENous, Every 4 hours PRN, SBP>170, Starting on Diane 03/02/24 at 0758 melatonin tablet 5 mg 5 mg, Oral, Nightly PRN, sleep, Starting on Diane 03/02/24 at 1108 ondansetron (Zofran) injection 4 mg(Linked Group 3) 4 mg, IntraVENous, Every 6 hours PRN, nausea, vomiting, Starting on Diane 03/02/24 at 0753, 1st Line. Give IV if patient is unable to take orally. If inadequate response within 60 minutes, proceed to next-line agent or contact provider if no further options ordered. ondansetron ODT (Zofran-ODT) disintegrating tablet 4 mg(Linked Group 3) 4 mg, Oral, Every 8 hours PRN, nausea, vomiting, Starting on Diane 03/02/24 at 0753, 1st Line. If inadequate response within 60 minutes, proceed to next-line agent or contact provider if no further options ordered. Patient should allow tablet to dissolve on tongue. Do not remove from blister pack until just before administering. polyethylene glycol (PEG) 3350 (Miralax) packet 17 g 17 g, Oral, Daily PRN, constipation, Starting on Diane 03/02/24 at 0753, 1st line for treatment of constipation - give scheduled if no bowel movement in past 24 hours. 2030 (Given - Provider: Daisy Wooten RN) Linked Groups Order Group 1: insulin regular (HumuLIN R,NovoLIN R) injection 10 Units (COMPLETED)Jump to med 10 Units, IntraVENous, Once, On Diane 03/02/24 at 0625, For 1 dose And dextrose 50 % solution 25 g (COMPLETED)Jump to med 25 g, IntraVENous, Once, On Diane 03/02/24 at 0625, For 1 dose And POCT glucose check (COMPLETED) Once, On Diane 03/02/24 at 0622, For 1 occurrence, Obtain POCT Glucose every 30 minutes following D50 administration times 2 occurrences, then every 1 hr times 2 occurrences, and then AC/HS for 24 hours. And POCT glucose check (COMPLETED) Every 1 hour, First occurrence on Diane 03/02/24 at 0722, Last occurrence on Diane 03/02/24 at 0800, For 2 occurrences, Obtain POCT Glucose every 30 minutes following D50 administration times 2 occurrences, then every 1 hr times 2 occurrences, and then AC/HS for 24 hours. And POCT glucose check (CANCELED) 4 times daily before meals and at bedtime, First occurrence on Diane 03/02/24 at 0922, Last occurrence on [facility] 03/04/24 at 2200, For 3 days, Obtain POCT Glucose every 30 minutes following D50 administration times 2 occurrences, then every 1 hr times 2 occurrences, and then AC/HS for 24 hours. Group 2: acetaminophen (Tylenol) tablet 650 mgJump to med 650 mg, Oral, Every 6 hours PRN, mild pain (1-3), fever, For temp greater than 100.4 F (38 C), Starting on Diane 03/02/24 at 0753, Maximum dose of acetaminophen is 4000 mg from all sources in 24 hours. Or acetaminophen (Tylenol) suppository 650 mgJump to med 650 mg, Rectal, Every 6 hours PRN, mild pain (1-3), fever, For temp greater than 100.4 F (38 C), Starting on Diane 03/02/24 at 0753, Administer if oral route cannot be used. Maximum dose of acetaminophen is 4000 mg from all sources in 24 hours. Group 3: ondansetron ODT (Zofran-ODT) disintegrating tablet 4 mgJump to med 4 mg, Oral, Every 8 hours PRN, nausea, vomiting, Starting on Diane 03/02/24 at 0753, 1st Line. If inadequate response within 60 minutes, proceed to next-line agent or contact provider if no further options ordered. Patient should allow tablet to dissolve on tongue. Do not remove from blister pack until just before administering. Or ondansetron (Zofran) injection 4 mgJump to med 4 mg, IntraVENous, Every 6 hours PRN, nausea, vomiting, Starting on Diane 03/02/24 at 0753, 1st Line. Give IV if patient is unable to take orally. If inadequate response within 60 minutes, proceed to next-line agent or contact provider if no further options ordered. Scheduled Medication Order 06/27/2024 06/28/2024 06/29/2024 sodium zirconium cyclosilicate (Lokelma) packet 15 g (COMPLETED) 15 g, Oral, Once, On Wed06/29/24 at 0910, For 1 dose, Empty entire contents of packet(s) into 45 mL water. Stir well and administer immediately. If powder remains, rinse glass with water and administer. Administer other meds at least 2 hours before or after dose to prevent decreases in their absorption. 0916 (Given - Provid er: Franco Greer RN) Scheduled Medication Order 09/04/2024 09/05/2024 09/06/2024 amLODIPine (Norvasc) tablet 5 mg 5 mg, oral, Daily, First dose on Wed09/01/24 at 1030 0821 (Given - Provider: Praveen Carney RN) 1230 (Given - Provider: Kelechi Warren RN) 0843 (Given - Provider: Jenn Little RN) atorvastatin (Lipitor) tablet 40 mg 40 mg, oral, Nightly, First dose on Wed09/01/24 at 2100 2104 (Given - Provider: Opal David RN) 2036 (Given - Provider: Opal David RN) 2100 (Due) cholecalciferol (Vitamin D-3) tablet 125 mcg 125 mcg, oral, Daily, First dose on Wed08/31/24 at 0900 0821 (Given - Provider: Praveen Carney RN) 1228 (Given - Provider: Kelechi Warren RN) 0844 (Given - Provider: Jenn Little RN) epoetin miller (Epogen) injection 10,000 Units (CANCELED) 10,000 Units, intravenous, User specified (Once per day on Wednesday), First dose (after last modification) on Wed09/05/24 at 2100, Indications: ESRD on Dialysis 2037 (Given - Provider: Opal David RN) epoetin miller (Epogen) injection 10,000 Units (COMPLETED) 10,000 Units, intravenous, Once, On Wed09/06/24 at 1330, For 1 dose, Please give today.. non-dialysis day..hgb 7.6, Indications: ESRD on Dialysis, anemia 1342 (Given - Provider: Jenn Little, CYNTHIA) epoetin miller (Epogen) injection 20,000 Units 20,000 Units, intravenous, User specified (Once per day on Wednesday), First dose (after last modification) on Wed09/07/24 at 2100, Indications: ESRD on Dialysis sodium zirconium cyclosilicate (Lokelma) packet 10 g 10 g, oral, 3 times weekly (Once per day on Wednesday), First dose on Wed09/01/24 at 1030 0821 (Given - Provider: Praveen Carney RN) 0844 (Given - Provider: Jenn Little RN) thiamine (Vitamin B-1) tablet 100 mg 100 mg, oral, Daily, First dose on Wed08/31/24 at 0900 0821 (Given - Provider: Praveen Carney RN) 1230 (Given - Provider: Kelechi Warren RN) 0843 (Given - Provider: Jenn Little RN) vitamin B complex-vitamin C-folic acid (Nephrocaps) capsule 1 capsule 1 capsule, oral, Daily, First dose on Wed09/01/24 at 1530 0821 (Given - Provider: Praveen Carney RN) 1230 (Given - Provider: Kelechi Warren, CYNTHIA) 0843 (Given - Provider: Jenn Little, CYNTHIA) PRN Medication Order 09/04/2024 09/05/2024 09/06/2024 HYDROmorphone (Dilaudid) injection 0.2 mg (CANCELED) 0.2 mg, intravenous, Every 3 hours PRN, pain severe (7-10), first line, Starting on Wed08/31/24 at 0133 0255 (Given - Provider: Ilene Valle RN)0831 (Given - Provider: Praveen Carney RN)2122 (Given - Provider: Opal David, CYNTHIA) 0108 (Given - Provider: Opal David, CYNTHIA) HYDROmorphone (Dilaudid) tablet 1 mg 1 mg, oral, Every 6 hours PRN, pain severe (7-10), first line, Starting on Wed09/05/24 at 0126, If ordered PRN for pain, nurse is permitted to administer this medication for higher pain scores based on patient preference? Yes 0526 (Given - Provider: Opal David RN)1228 (Given - Provider: Kelechi Warren, RN)1826 (Given - Provider: Jenn Little, RN) 0055 (Given - Provider: Opal David RN)0843 (Given - Provider: Jenn Little, CYNTHIA) meclizine (Antivert) tablet 25 mg 25 mg, oral, 3 times daily PRN, vertigo, Starting on Wed08/31/24 at 0133 Scheduled Medication Order 11/09/2024 11/10/2024 11/11/2024 acetaminophen (Tylenol) tablet 1,000 mg 1,000 mg, Oral, Every 8 hours, First dose (after last modification) on [place] 11/09/24 at 0930, Maximum dose of acetaminophen is 4000 mg from all sources in 24 hours. 1312 (Given - Provider: Kellee Rich RN - Comment: Pt. was in dialysis)2017 (Given - Provider: Yuly Gonzalez RN) 0501 (Given - Provider: Yuly Gonzalez RN)1245 (Given - Provider: Key Leach RN)2016 (Given - Provider: Bee Hoyos, CYNTHIA) 0531 (Given - Provider: Bee Hoyos, RN)1402 (Given - Provider: Jessica La, CYNTHIA) amLODIPine (Norvasc) tablet 5 mg 5 mg, Oral, Daily, First dose on Diane 10/26/24 at 1330 1251 (Given - Provider: Kellee Rich RN - Comment: Pt. was in dialysis) 0912 (Given - Provider: Key Leach RN) 0816 (Given - Provider: Jessica La, CYNTHIA) chlorhexidine (Hibiclens) 4 % solution Topical, Daily, First dose on 10/23/24 at 1400 1312 (Given - Provider: Kellee Rich RN) 0515 (Given - Provider: Yuly Gonzalez RN - Comment: given)1247 (Given - Provider: Key Leach, CYNTHIA) 1431 (Not Given - Provider: Jessica La RN - Reason: Order parameters not met - Comment: line dcd) collagenase 250 UNIT/GM ointment Topical, Daily, First dose on Wed10/23/24 at 1200, Nursing staff to perform dressing change: Sacrum extending to left buttock: Pressure Injury Unstageable (POA) -cleanse with NS, apply santyl followed by xeroform, cover with dry clean dressing daily and PRN. 0751 (Given - Provider: Jamie Medina RN) 1247 (Given - Provider: Key Leach RN) 0900 (Canceled Entry - Provider: Automatic Discharge Provider - Comment: Automatically canceled at discontinue of medication order) heparin injection 5,000 Units 5,000 Units, SubCUTAneous, Every 12 hours scheduled (2 times per day), First dose on Wed10/22/24 at 2100, On hold since Diane 11/09/2024 at 0836 until manually unheld 0836 (Held by provider - Provider: Gerard Carrillo DO - Reason: Other)0837 (Not Given - Provider: Jamie Medina RN - Reason: See Provider Order)2100 (Dose Auto Held - Provider: Gerard Carrillo DO) 0900 (Dose Auto Held - Provider: Gerard Carrillo DO)2100 (Dose Auto Held - Provider: Gerard Carrillo DO) 0900 (Dose Auto Held - Provider: Gerard Carrillo DO)2000 (Unheld by provider - Provider: Automatic Discharge Provider) HYDROmorphone (Dilaudid) injection 0.5 mg (COMPLETED) 0.5 mg, IntraVENous, Once, On [place] 11/09/24 at 0445, For 1 dose, If oral and injectable narcotics ordered, use oral first and only use injectable if oral is ineffective or cannot take oral. Do Not give oral and injectable within 1 hour of each other unless specifically ordered. 0459 (Given - Provider: Yuly Gonzalez RN) levETIRAcetam (Keppra) tablet 500 mg 500 mg, Oral, Daily, First dose on Wed11/01/24 at 0930, Do not crush or chew. 1251 (Given - Provider: Kellee Rich RN - Comment: Pt. was in dialysis) 0912 (Given - Provider: Key Leach, RN) 0816 (Given - Provider: Jessica La, CYNTHIA) lidocaine-EPINEPHrine (Xylocaine W/EPI) 1 %[id number] injection 25 mL 25 mL, Injection, Once, On Wed11/10/24 at 1345, For 1 dose 1345 (Canceled Entry - Provider: Automatic Discharge Provider - Comment: Automatically canceled at discontinue of medication order) melatonin tablet 5 mg 5 mg, Oral, Nightly, First dose (after last modification) on Wed11/09/24 at 2100 2018 (Given - Provider: Yuly Gonzalez, RN) 2017 (Given - Provider: Bee Hoyos, CYNTHIA) oxyCODONE (Roxicodone) immediate release tablet 5 mg (COMPLETED) 5 mg, Oral, Once, On Wed11/09/24 at 0045, For 1 dose 0045 (Given - Provider: Yuly Gonzalez, RN) sevelamer carbonate (Renvela) tablet 800 mg 800 mg, Oral, 3 times daily with meals, First dose on Wed10/22/24 at 1855, Do not crush, chew, or split., On hold since Wed10/22/2024 at 1851 until manually unheld 0800 (Dose Auto Held)1200 (Dose Auto Held)1700 (Dose Auto Held) 0800 (Dose Auto Held)1200 (Dose Auto Held)1700 (Dose Auto Held) 0800 (Dose Auto Held)1200 (Dose Auto Held)1700 (Dose Auto Held)2000 (Unheld by provider - Provider: Automatic Discharge Provider) sodium chloride 0.9% (NS) flush 5-40 mL 5-40 mL, IntraVENous, Every 12 hours scheduled (2 times per day), First dose on Wed10/22/24 at 2100, For Line Patency: Peripheral IV = 5 mL; Midline or Central Line = 10 mL/lumen. If following IV push medication, administer flush at same rate as the IV push. Flush volume is determined by type of infusion therapy being given. For non-viscous solutions use: Peripheral IV = 5 mL Midline or Central Line = 10 mL/lumen For viscous solutions (i.e. blood components, parenteral nutrition, contrast media, or after obtaining blood sample) use: Peripheral IV = 10 mL Midline or Central Line = 20 mL/lumen 1314 (Not Given - Provider: Kellee Rich RN - Reason: Other)2018 (Given - Provider: Yuly Gonzalez RN) 0913 (Given - Provider: Key Leach RN)2045 (Not Given - Provider: Bee Hoyos RN - Reason: Other - Comment: duplicate order) 0818 (Given - Provider: Jessica La, CYNTHIA) sodium chloride 0.9% (NS) flush 5-40 mL 5-40 mL, IntraCATHeter, Every 8 hours, First dose on Wed10/23/24 at 1045, For Line Patency: Peripheral IV = 5 mL; Midline or Central Line = 10 mL/lumen. If following IV push medication, administer flush at same rate as the IV push. Flush volume is determined by type of infusion therapy being given. For non-viscous solutions use: Peripheral IV = 5 mL Midline or Central Line = 10 mL/lumen For viscous solutions (i.e. blood components, parenteral nutrition, contrast media, or after obtaining blood sample) use: Peripheral IV = 10 mL Midline or Central Line = 20 mL/lumen 0500 (Given - Provider: Yuly Gonzalez RN)1313 (Given - Provider: Kellee Rich RN)2123 (Given - Provider: Yuly Gonzalez RN) 0651 (Given - Provider: Yuly Gonzalez RN)1323 (Given - Provider: Key Leach RN)202 (Given - Provider: Bee Hoyos RN) 0532 (Given - Provider: Bee Hoyos RN)1431 (Not Given - Provider: Jessica La RN - Reason: Order parameters not met - Comment: line dcd) sulfamethoxazole-trime thoprim (Bactrim DS) 800-160 MG per tablet 1 tablet 1 tablet, Oral, Daily, First dose on Wed10/30/24 at 1500, For 14 days, Suspected Indication (Select all that apply): Other, Other Abx Indication: AVF wound infection 1251 (Given - Provider: Kellee Rich RN - Comment: Pt. was in dialysis) 0912 (Given - Provider: Key Leach RN) 0816 (Given - Provider: Jessica La, CYNTHIA) PRN Medication Order 11/09/2024 11/10/202411/11/2024 collagenase 250 UNIT/GM ointment Topical, PRN, Wound care, Starting on 10/23/24 at 1133, Nursing staff to perform dressing change: Sacrum extending to left buttock: Pressure Injury Unstageable (POA) -cleanse with NS, apply santyl followed by xeroform, cover with dry clean dressing daily and PRN. heparin injection 1,200-2,000 Units 1,200-2,000 Units, IntraCATHeter, As needed, For hemodialysis system down vascular catheter, Starting on 10/22/24 at 1851, To ARTERIAL lumen. Use when system down. Dose based on lumen volume: 1,200 units = 1.2 mL 1,400 units = 1.4 mL 1,500 units = 1.5 mL 1,600 units = 1.6 mL 1,700 units = 1.7 mL 1,800 units = 1.8 mL 2,000 units = 2 mL 1100 (Given - Provider: Marisel Johns RN - Comment: 2.1 ml venous lumen) 1307 (Given - Provider: Kimmie Sandhu, RN) heparin injection 1,200-2,000 Units 1,200-2,000 Units, IntraCATHeter, As needed, For hemodialysis system down vascular catheter, Starting on Wed10/22/24 at 1851, To VENOUS lumen. Use when system down. Dose based on lumen volume: 1,200 units = 1.2 mL 1,400 units = 1.4 mL 1,500 units = 1.5 mL 1,600 units = 1.6 mL 1,700 units = 1.7 mL 1,800 units = 1.8 mL 2,000 units = 2 mL 1100 (Given - Provider: Marisel Johns RN - Comment: 2.0 ml arterial lumen) 1307 (Given - Provider: Kimmie Sandhu RN) HYDROmorphone (Dilaudid) injection 0.25 mg 0.25 mg, IntraVENous, Every 4 hours PRN, severe pain (7-10), give for severe pain if the oral pain medication is not sufficient. do not give within an hour of the oral oxycodone, Starting on Diane 11/09/24 at 0924, If oral and injectable narcotics ordered, use oral first and only use injectable if oral is ineffective or cannot take oral. Do Not give oral and injectable within 1 hour of each other unless specifically ordered. 1014 (Given - Provider: Jamie Medina RN) labetalol (Normodyne,Trandate) injection 10 mg (CANCELED) 10 mg, IntraVENous, Every 4 hours PRN, high blood pressure, SBP>160 (1st line, HOLD for HR<65), Starting on Wed10/24/24 at 0423 0415 (Given - Provider: Yuly Gonzalez RN) naloxone (Narcan) injection 0.4 mg 0.4 mg, IntraVENous, Every 5 min PRN, opioid reversal, respiratory depression, Starting on Wed10/30/24 at 2059, +++ For RR <10, pinpoint pupils, over sedation for opioid reversal - MUST notify skilled nursing professional provider immediately after first dose, may give IM or SQ if no IV access +++ ondansetron (Zofran) injection 4 mg(Linked Group 1) 4 mg, IntraVENous, Every 6 hours PRN, nausea, vomiting, Starting on 10/22/24 at 1851, 1st Line. Give IV if patient is unable to take orally. If inadequate response within 60 minutes, proceed to next-line agent or contact provider if no further options ordered. ondansetron ODT (Zofran-ODT) disintegrating tablet 4 mg(Linked Group 1) 4 mg, Oral, Every 8 hours PRN, nausea, vomiting, Starting on 10/22/24 at 1851, 1st Line. If inadequate response within 60 minutes, proceed to next-line agent or contact provider if no further options ordered. Patient should allow tablet to dissolve on tongue. Do not remove from blister pack until just before administering. oxyCODONE (Roxicodone) immediate release tablet 5 mg 5 mg, Oral, Every 6 hours PRN, severe pain (7-10), moderate pain (4-6), Starting on Wed11/08/24 at 1425 0347 (Given - Provider: Yuly Gonzalez RN) 202 (Given - Provider: Bee Hoyos, CYNTHIA) 0222 (Given - Provider: Bee Hoyos, CYNTHIA)1004 (Given - Provider: Jessica La, RN)1654 (Given - Provider: Jessica La, CYNTHIA) polyethylene glycol (PEG) 3350 (Miralax) packet 17 g 17 g, Oral, Daily PRN, constipation, Starting on Wed10/22/24 at 1851, 1st line for treatment of constipation - give scheduled if no bowel movement in past 24 hours. sodium chloride 0.9 % infusion 5-250 mL/hr, IntraVENous, PRN, if patient receiving piggyback infusions and maintenance fluids are not ordered OR KVO fluids to protect IV site / prevent frequent line interruptions/ long duration, Starting on Wed10/22/24 at 1304, For piggyback infusion, administer at same rate as piggyback for a total of 25 mL. Enter 25 mL into dose field and piggyback rate into rate field of order. If piggyback is infusing at a rate less than 100 mL/hr, enter 25 mL into dose field and 100 mL/hr into rate field of order. For KVO fluids, enter rate of 20 mL/hr or less into rate field of order. sodium chloride 0.9 % infusion 250 mL/hr, IntraVENous, Administer over 10 Minutes, As needed, For use in priming line prior to transfusion (prime via gravity) and flush line post transfusion, Starting on Wed10/24/24 at 0851, For 1 dose, For use in priming line prior to transfusion (prime via gravity) and flush line post transfusion ONLY. Discontinue once line has been cleared of remaining blood product. sodium chloride 0.9 % infusion 250 mL/hr, IntraVENous, Administer over 10 Minutes, As needed, For use in priming line prior to transfusion (prime via gravity) and flush line post transfusion, Starting on Wed10/27/24 at 0803, For 1 dose, For use in priming line prior to transfusion (prime via gravity) and flush line post transfusion ONLY. Discontinue once line has been cleared of remaining blood product. sodium chloride 0.9 % infusion 125 mL/hr, IntraVENous, Administer over 10 Minutes, As needed, Line Flush, Starting on Diane 11/02/24 at 1233, For 1 dose, Recovery & On Unit, For use in priming line prior to transfusion (prime via gravity) and flush line post transfusion ONLY. DISCONTINUE once line has been cleared of remaining blood product. sodium chloride 0.9 % infusion 250 mL/hr, IntraVENous, Administer over 10 Minutes, As needed, For use in priming line prior to transfusion (prime via gravity) and flush line post transfusion, Starting on Wed11/03/24 at 0711, For 1 dose, For use in priming line prior to transfusion (prime via gravity) and flush line post transfusion ONLY. Discontinue once line has been cleared of remaining blood product. sodium chloride 0.9 % infusion 250 mL/hr, IntraVENous, Administer over 10 Minutes, As needed, For use in priming line prior to transfusion (prime via gravity) and flush line post transfusion, Starting on Wed11/05/24 at 0646, For 1 dose, For use in priming line prior to transfusion (prime via gravity) and flush line post transfusion ONLY. Discontinue once line has been cleared of remaining blood product. sodium chloride 0.9 % infusion 250 mL/hr, IntraVENous, Administer over 10 Minutes, As needed, For use in priming line prior to transfusion (prime via gravity) and flush line post transfusion, Starting on Wed11/05/24 at 1146, For 1 dose, For use in priming line prior to transfusion (prime via gravity) and flush line post transfusion ONLY. Discontinue once line has been cleared of remaining blood product. sodium chloride 0.9 % infusion 250 mL/hr, IntraVENous, Administer over 10 Minutes, As needed, For use in priming line prior to transfusion (prime via gravity) and flush line post transfusion, Starting on Wed11/09/24 at 0329, For 1 dose, For use in priming line prior to transfusion (prime via gravity) and flush line post transfusion ONLY. Discontinue once line has been cleared of remaining blood product. sodium chloride 0.9% (NS) flush 5-40 mL 5-40 mL, IntraVENous, PRN, line care, Starting on [place] 10/22/24 at 1304, For Line Patency: Peripheral IV = 5 mL; Midline or Central Line = 10 mL/lumen. If following IV push medication, administer flush at same rate as the IV push. Flush volume is determined by type of infusion therapy being given. For non-viscous solutions use: Peripheral IV = 5 mL Midline or Central Line = 10 mL/lumen For viscous solutions (i.e. blood components, parenteral nutrition, contrast media, or after obtaining blood sample) use: Peripheral IV = 10 mL Midline or Central Line = 20 mL/lumen sodium chloride 0.9% (NS) flush 5-40 mL 5-40 mL, IntraVENous, PRN, line care, before and after blood draws, infusion, or medication administration, Starting on 10/23/24 at 1042, For Line Patency: Peripheral IV = 5 mL; Midline or Central Line = 10 mL/lumen. If following IV push medication, administer flush at same rate as the IV push. Flush volume is determined by type of infusion therapy being given. For non-viscous solutions use: Peripheral IV = 5 mL Midline or Central Line = 10 mL/lumen For viscous solutions (i.e. blood components, parenteral nutrition, contrast media, or after obtaining blood sample) use: Peripheral IV = 10 mL Midline or Central Line = 20 mL/lumen Linked Groups Order Group 1: ondansetron ODT (Zofran-ODT) disintegrating tablet 4 mgJump to med 4 mg, Oral, Every 8 hours PRN, nausea, vomiting, Starting on 10/22/24 at 1851, 1st Line. If inadequate response within 60 minutes, proceed to next-line agent or contact provider if no further options ordered. Patient should allow tablet to dissolve on tongue. Do not remove from blister pack until just before administering. Or ondansetron (Zofran) injection 4 mgJump to med 4 mg, IntraVENous, Every 6 hours PRN, nausea, vomiting, Starting on 10/22/24 at 1851, 1st Line. Give IV if patient is unable to take orally. If inadequate response within 60 minutes, proceed to next-line agent or contact provider if no further options ordered. Scheduled Medication Order 11/13/2024 11/14/2024 11/15/2024 acetaminophen (Tylenol) tablet 1,000 mg 1,000 mg, Oral, Every 8 hours, First dose (after last modification) on 11/12/24 at 1830, Maximum dose of acetaminophen is 4000 mg from all sources in 24 hours. 0123 (Not Given - Provider: Saloni Childers RN - Reason: Patient/family refused)0909 (Given - Provider: Jairon Travis RN)1831 (Not Given - Provider: Jairon Travis RN - Reason: Patient/family refused) 0201 (Not Given - Provider: Saloni Childers RN - Reason: Patient/family refused)0745 (Given - Provider: Jairon Travis RN)1737 (Given - Provider: Jairon Travis RN) 0210 (Not Given - Provider: Saloni Childers RN - Reason: Patient/family refused)0821 (Given - Provider: Jairon Travis RN) amLODIPine (Norvasc) tablet 5 mg 5 mg, Oral, Daily, First dose (after last modification) on Wed11/13/24 at 0900 0908 (Given - Provider: Jairon Travis RN) 0745 (Given - Provider: Jairon Travis RN) 0821 (Given - Provider: Jairon Travis RN) collagenase 250 UNIT/GM ointment (CANCELED) Topical, Daily, First dose (after last modification) on Wed11/13/24 at 0900, Nursing staff to perform dressing change: Sacrum extending to left buttock: Pressure Injury Unstageable (POA) -cleanse with NS, apply santyl followed by xeroform, cover with dry clean dressing daily and PRN. 1707 (Given - Provider: Jairon Travis RN) levETIRAcetam (Keppra) tablet 500 mg 500 mg, Oral, Daily, First dose (after last modification) on Wed11/13/24 at 0900, Do not crush or chew. 0908 (Given - Provider: Jairon Travis RN) 0745 (Given - Provider: Jairon Travis RN) 0821 (Given - Provider: Jairon Travis RN) melatonin tablet 5 mg 5 mg, Oral, Nightly, First dose (after last modification) on Wed11/12/24 at 2100 1952 (Given - Provider: Saloni Childers, CYNTHIA) 2016 (Given - Provider: Saloni Childers, CYNTHIA) sevelamer carbonate (Renvela) tablet 800 mg 800 mg, Oral, 3 times daily with meals, First dose (after last modification) on Wed11/13/24 at 0800, Do not crush, chew, or split. 0908 (Given - Provider: Jairon Travis RN)1207 (Not Given - Provider: Jairon Travis RN - Reason: Other - Comment: not eating)1831 (Not Given - Provider: Jairon Travis RN - Reason: Patient/family refused - Comment: pt vomited) 0745 (Given - Provider: Jairon Travis RN)1310 (Not Given - Provider: Jairon Travis RN - Reason: Patient/family refused)1737 (Given - Provider: Jairon Travis RN) 0821 (Given - Provider: Jairon Travis RN)1301 (Not Given - Provider: Jairon Travis RN - Reason: Other - Comment: not eating) silver nitrate applicator Topical, Once, On Wed11/12/24 at 1900, For 1 dose, Resident to apply. sulfamethoxazole-trimeth oprim (Bactrim DS) 800-160 MG per tablet 1 tablet (COMPLETED) 1 tablet, Oral, Daily, First dose on Wed11/13/24 at 0900, For 1 day, Suspected Indication (Select all that apply): Surgical Site Infection 09 (Given - Provider: Jairon Travis RN) Xeroform Petrolat Gauze 5x9 external pad 1 each (CANCELED) 1 each, Topical, Daily, First dose on Wed11/13/24 at 1600, Apply to left buttock. 1706 (Given - Provider: Jairon Travis RN) PRN Medication Order 11/13/2024 11/14/2024 11/15/2024 diphenhydrAMINE (BENADryl) injection 25 mg 25 mg, IntraVENous, Every 6 hours PRN, itching, Starting on Wed11/14/24 at 1304 naloxone (Narcan) injection 0.4 mg 0.4 mg, IntraVENous, Every 5 min PRN, opioid reversal, respiratory depression, Starting on Wed11/12/24 at 1748, +++ For RR <10, pinpoint pupils, over sedation for opioid reversal - MUST notify skilled nursing professional provider immediately after first dose, may give IM or SQ if no IV access +++ ondansetron (Zofran) injection 4 mg(Linked Group 1) 4 mg, IntraVENous, Every 6 hours PRN, nausea, vomiting, Starting on Wed11/12/24 at 1742, 1st Line. Give IV if patient is unable to take orally. If inadequate response within 60 minutes, proceed to next-line agent or contact provider if no further options ordered. 182 (See Alternative - Provider: Jairon Travis RN)1823 (See Alternative - Provider: Jairon Travis RN) ondansetron ODT (Zofran-ODT) disintegrating tablet 4 mg(Linked Group 1) 4 mg, Oral, Every 8 hours PRN, nausea, vomiting, Starting on 11/12/24 at 1742, 1st Line. If inadequate response within 60 minutes, proceed to next-line agent or contact provider if no further options ordered. Patient should allow tablet to dissolve on tongue. Do not remove from blister pack until just before administering. 1820 (Canceled Entry - Provider: Jairon Travis RN)1823 (Given - Provider: Jairon Travis RN) oxyCODONE (Roxicodone) immediate release tablet 5 mg 5 mg, Oral, Every 6 hours PRN, severe pain (7-10), moderate pain (4-6), Starting on 11/12/24 at 1742 0622 (Given - Provider: Saloni Childers RN)1221 (Given - Provider: Jairon Travis RN)1952 (Given - Provider: Saloni Childers RN) 1046 (Given - Provider: Jairon Travis RN)1607 (Given - Provider: Jairon Travis RN - Comment: order ok to give early per Dr. Do)2338 (Given - Provider: Saloni Childers RN) 0821 (Given - Provider: Jairon Travis RN) polyethylene glycol (PEG) 3350 (Miralax) packet 17 g 17 g, Oral, Daily PRN, constipation, Starting on 11/12/24 at 1742, 1st line for treatment of constipation - give scheduled if no bowel movement in past 24 hours. Linked Groups Order Group 1: ondansetron ODT (Zofran-ODT) disintegrating tablet 4 mgJump to med 4 mg, Oral, Every 8 hours PRN, nausea, vomiting, Starting on 11/12/24 at 1742, 1st Line. If inadequate response within 60 minutes, proceed to next-line agent or contact provider if no further options ordered. Patient should allow tablet to dissolve on tongue. Do not remove from blister pack until just before administering. Or ondansetron (Zofran) injection 4 mgJump to med 4 mg, IntraVENous, Every 6 hours PRN, nausea, vomiting, Starting on 11/12/24 at 1742, 1st Line. Give IV if patient is unable to take orally. If inadequate response within 60 minutes, proceed to next-line agent or contact provider if no further options ordered. Scheduled Medication Order 12/18/2024 12/19/2024 12/20/2024 acetaminophen (Tylenol) tablet 1,000 mg 1,000 mg, Oral, Every 8 hours, First dose on 12/10/24 at 1900, Maximum dose of acetaminophen is 4000 mg from all sources in 24 hours. 0300 (Not Given - Provider: Karis Jacobson RN - Reason: Patient/family refused)1443 (Not Given - Provider: Kellee Rich RN - Reason: Patient/family refused)1800 (Not Given - Provider: Kellee Rich RN - Reason: Patient/family refused) 0301 (Not Given - Provider: Jayashree Petersen RN - Reason: Patient/family refused)1216 (Not Given - Provider: Key Leach RN - Reason: Patient/family refused)1816 (Given - Provider: Key Leach RN) 0332 (Not Given - Provider: Jayashree Petersen RN - Reason: Patient/family refused)0934 (Given - Provider: Jamie Medina, CYNTHIA)1900 (Canceled Entry - Provider: Automatic Discharge Provider - Comment: Automatically canceled at discontinue of medication order) amLODIPine (Norvasc) tablet 10 mg 10 mg, Oral, Daily, First dose (after last modification) on 12/11/24 at 0900 0836 (Not Given - Provider: Kellee Rich RN - Reason: Patient/family refused) 0952 (Given - Provider: Shauna Flynn) 0848 (Given - Provider: Jamie Medina, RN) atorvastatin (Lipitor) tablet 40 mg 40 mg, Oral, Nightly, First dose on 12/09/24 at 2100 2042 (Not Given - Provider: Jayashree Petersen, CYNTHIA - Reason: Patient/family refused) 2000 (Given - Provider: Jayashree Petersen, RN) B complex-vitamin C-folic acid (Nephrocaps) capsule 1 capsule 1 capsule, Oral, Daily, First dose on 12/09/24 at 0900 0836 (Not Given - Provider: Kellee Rich RN - Reason: Patient/family refused) 0951 (Given - Provider: Shauna Flynn) 0847 (Given - Provider: Jamie Medina, CYNTHIA) cholecalciferol (Vitamin D-3) tablet 5,000 Units 5,000 Units, Oral, Daily, First dose on Wed12/09/24 at 0900 0836 (Not Given - Provider: Kellee Rich RN - Reason: Patient/family refused) 0951 (Given - Provider: Shauna Flynn) 0847 (Given - Provider: Jamie Medina, CYNTHIA) heparin injection 5,000 Units 5,000 Units, SubCUTAneous, Every 8 hours scheduled (3 times per day), First dose on Wed12/13/24 at 1400, On hold since Wed12/17/2024 at 0736 until manually unheld 0600 (Dose Auto Held - Provider: Kev Urias MD)1400 (Dose Auto Held - Provider: Kev Urias MD)2200 (Dose Auto Held - Provider: Kev Urias MD) 0600 (Dose Auto Held - Provider: Kev Urias MD)1400 (Dose Auto Held - Provider: Kev Urias MD)2200 (Dose Auto Held - Provider: Kev Urias MD) 0600 (Dose Auto Held - Provider: Kev Urias MD)1400 (Dose Auto Held - Provider: Kev Urias MD)2008 (Unheld by provider - Provider: Automatic Discharge Provider) levETIRAcetam (Keppra) tablet 250 mg 250 mg, Oral, 2 times daily, First dose on Wed12/20/24 at 1000, Do not crush or chew. 0932 (Given - Provider: Jamie Medina, CYNTHIA) levETIRAcetam in sodium chloride (Keppra) IVPB 500 mg (CANCELED) 500 mg, IntraVENous, Administer over 15 Minutes, Daily, First dose on Wed12/18/24 at 1515 1854 (New Bag - Provider: Kellee Rich, CYNTHIA)1950 (Stopped - Provider: Jayashree Petersen, CYNTHIA) 1126 (New Bag - Provider: Shauna Flynn)1145 (Stopped - Provider: Key Leach RN) Lidocaine 4 % patch 1 patch 1 patch, TransDERmal, Administer over 12 Hours, Daily, First dose on [place] 12/10/24 at 0900, Apply patch to affected area. Patch may remain in place for up to 12 hours in any 24 hour period. 0836 (Not Given - Provider: Kellee Rich RN - Reason: Patient/family refused) 0950 (Not Given - Provider: Shauna Flynn - Reason: Patient/family refused) 0856 (Not Given - Provider: Jamie Medina RN - Reason: Patient/family refused) meropenem (Merrem) 1,000 mg in sodium chloride 0.9 % 100 mL IVPB (CANCELED) 1,000 mg, IntraVENous, at 33.3 mL/hr, Administer over 180 Minutes, Every 12 hours, First dose on [place] 12/14/24 at 1200, For 7 days, Mini-Bag Plus bag, Suspected Indication (Select all that apply): Surgical Site Infection 0010 (New Bag - Provider: Karis Jacobson RN)0310 (Stopped - Provider: Karis Jacobson RN)1625 (Not Given - Provider: Kellee Rich RN - Reason: Other - Comment: Order d/c) sodium chloride 0.9% (NS) flush 5-40 mL 5-40 mL, IntraVENous, Every 12 hours, First dose on [facility] 12/09/24 at 0630, For Line Patency: Peripheral IV = 5 mL; Midline or Central Line = 10 mL/lumen. If following IV push medication, administer flush at same rate as the IV push. Flush volume is determined by type of infusion therapy being given. For non-viscous solutions use: Peripheral IV = 5 mL Midline or Central Line = 10 mL/lumen For viscous solutions (i.e. blood components, parenteralnutrition, contrast media, or after obtaining blood sample) use: Peripheral IV = 10 mL Midline or Central Line = 20 mL/lumen 0628 (Given - Provider: Karis Jacobson RN)1803 (Not Given - Provider: Kellee Rich RN - Reason: Other) 0509 (Given - Provider: Jayashree Petersen, CYNTHIA)1816 (Given - Provider: Key Leach RN) 0426 (Given - Provider: Jayashree Petersen, CYNTHIA)1733 (Not Given - Provider: Jamie Medina RN - Reason: Other) stomahesive in petrolatum (ET Mix) Topical, Every 8 hours scheduled (3 times per day), First dose on Wed12/13/24 at 1400, Apply to buttocks 0628 (Given - Provider: Karis Jacobson RN)1508 (Not Given - Provider: Kellee Rich RN - Reason: Patient not available - Comment: In dialysis)2000 (Given - Provider: Jayashree Petersen RN) 0509 (Not Given - Provider: Jayashree Petersen RN - Reason: Patient/family refused)1321 (Given - Provider: Key Leach, CYNTHIA)2140 (Given - Provider: Jayashree Petersen, CYNTHIA) 0425 (Given - Provider: Jayashree Petersen RN)1603 (Given - Provider: Jamie Medina RN) thiamine (Vitamin B1) 500 mg in sodium chloride 0.9 % 100 mL IVPB (CANCELED) 500 mg, IntraVENous, at 200 mL/hr, Administer over 30 Minutes, 3 times daily, First dose on Wed12/14/24 at 1500 0911 (New Bag - Provider: Kellee Rich RN)1007 (Stopped - Provider: Kellee Rich RN)1507 (Not Given - Provider: Kellee Rich RN - Reason: Patient not available - Comment: Pt. getting dialysis)1999 (New Bag - Provider: Jayashree Petersen RN)2147 (Stopped - Provider: Jayashree Petersen RN) 0954 (New Bag - Provider: Shauna Flynn)1026 (Stopped - Provider: Key Leach RN)1318 (New Bag - Provider: Key Leach, CYNTHIA)1348 (Stopped - Provider: Key Leach, RN)2140 (New Bag - Provider: Jayashree Petersen RN)2217 (Stopped - Provider: Jayashree Petersen RN) 0929 (Not Given - Provider: Jamie Medina RN - Reason: See Provider Order) thiamine (Vitamin B1) tablet 100 mg 100 mg, Oral, Daily, First dose on Wed12/20/24 at 0915 0932 (Given - Provider: Jamie Medina, CYNTHIA) PRN Medication Order 12/18/2024 12/19/202412/20/2024 alteplase (Cathflo Activase) 2 mg in sterile water 2 mL injection 2 mg, IntraCATHeter, As needed, line care, Starting on Wed12/13/24 at 2114, For occluded catheter ports. Instill 2 mg into each port, and retain for 0.5 - 2 hours. May repeat if catheter remains occluded. Dilute each 2 mg vial with 2.2 mL sterile water to give 1 mg/mL final concentration. Swirl gently to mix; do not shake. alteplase (Cathflo Activase) 2 mg in sterile water 2 mL injection 2 mg, IntraCATHeter, As needed, line care, Starting on Wed12/13/24 at 2115, For occluded catheter ports. Instill 2 mg into each port, and retain for 0.5 - 2 hours. May repeat if catheter remains occluded. Dilute each 2 mg vial with 2.2 mL sterile water to give 1 mg/mL final concentration. Swirl gently to mix; do not shake. dextrose 5 % infusion 100 mL/hr, IntraVENous, PRN, Blood sugar less than 70mg/dL, Starting on Wed12/12/24 at 2230, Start infusion following administration of dextrose 50% or glucagon. dextrose 50 % solution 12.5 g 12.5 g, IntraVENous, PRN, low blood sugar, Blood glucose less than 70 mg/dL and patient NOT ALERT or NPO., Starting on Wed12/12/24 at 2230, If patient does not respond within 5 minutes, repeat dose x1. Start D5W at 100 mL/hour until ordering provider can be reached. Repeat blood glucose in 15 minutes. If blood glucose is less than 70 mg/dL, repeat treatment and recheck blood glucose in 15 minutes x2. If using Glucostabilizer, dose as instructed per system. 184 (Given - Provider: Key Leach RN) gadopiclenol (Vueway) injection 5 mL (COMPLETED) 5 mL, IntraVENous, IMG once PRN, contrast, Starting on Wed12/12/24 at 1117, For 1 dose 1124 (Given - Provider: Swetha Arevalo, RT (R)(MR)) glucagon (human recombinant) injection 1 mg 1 mg, IntraMUSCular, PRN, low blood sugar, Blood glucose less than 70 mg/dL and patient NOT ALERT or NPO and does not have IV access., Starting on Wed12/12/24 at 2230, After administration, attempt intravenous access and start D5W at 100 mL/hr. Repeat blood glucose in 15 minutes x2 and notify provider. glucose oral gel 15 g 15 g, Oral, As needed, low blood sugar, Starting on Wed12/12/24 at 2230, If blood glucose less than 50 mg/dL and patient ALERT and NOT NPO, give 2 tubes glucose gel. If blood glucose less than 70 mg/dL and patient ALERT and NOT NPO, give 1 tube glucose gel. Repeat blood glucose in 15 minutes. If blood glucose is less than 70 mg/dL, repeat treatment and recheck blood glucose in 15 minutes x2 and notify provider. heparin injection 1,200-2,000 Units 1,200-2,000 Units, IntraCATHeter, As needed, For hemodialysis system down vascular catheter, Starting on Wed12/12/24 at 1758, Dialysis, To ARTERIAL lumen. Use when system down. Dose based on lumen volume: 1,200 units = 1.2 mL 1,400 units = 1.4 mL 1,500 units = 1.5 mL 1,600 units = 1.6 mL 1,700 units = 1.7 mL 1,800 units = 1.8 mL 2,000 units = 2 mL heparin injection 1,200-2,000 Units 1,200-2,000 Units, IntraCATHeter, As needed, For hemodialysis system down vascular catheter, Starting on Wed12/12/24 at 1758, Dialysis, To VENOUS lumen. Use when system down. Dose based on lumen volume: 1,200 units = 1.2 mL 1,400 units = 1.4 mL 1,500 units = 1.5 mL 1,600 units = 1.6 mL 1,700 units = 1.7 mL 1,800 units = 1.8 mL 2,000 units = 2 mL HYDROmorphone (Dilaudid) injection 0.25 mg(Linked Group 1) 0.25 mg, IntraVENous, Every 4 hours PRN, moderate pain (4-6), Starting on [place] 12/14/24 at 1311, If oral and IV narcotics ordered, use oral first and only use IV if oral is ineffective or cannot take oral. Do Not give oral and IV within 1 hour of each other unless specifically ordered. 909 (See Alternative - Provider: Kellee Rich RN)1853 (See Alternative - Provider: Kellee Rich RN) 30 (See Alternative - Provider: Jayashree Petersen, CYNTHIA)2000 (See Alternative - Provider: Jayashree Petersen, CYNTHIA) 424 (See Alternative - Provider: Jayashree Petersen, RN) HYDROmorphone (Dilaudid) injection 0.5 mg(Linked Group 1) 0.5 mg, IntraVENous, Every 4 hours PRN, severe pain (7-10), Starting on [place] 12/14/24 at 1311, If oral and IV narcotics ordered, use oral first and only use IV if oral is ineffective or cannot take oral. Do Not give oral and IV within 1 hour of each other unless specifically ordered. 909 (Given - Provider: Kellee Rich RN)1853 (Given - Provider: Kellee Rich RN) 30 (Given - Provider: Jayashree Petersen RN)2000 (Given - Provider: Jayashree Petersen RN) 424 (Given - Provider: Jayashree Petersen, CYNTHIA) labetalol (Normodyne,Trandate) injection 10 mg 10 mg, IntraVENous, Every 6 hours PRN, high blood pressure, SBP>160. hold for HR< 60, Starting on 12/09/24 at 1112, 1st line 1853 (Given - Provider: Kellee Rich RN) 1999 (Given - Provider: Jayashree Petersen, CYNTHIA) melatonin tablet 5 mg 5 mg, Oral, Nightly PRN, sleep, Starting on Wed12/13/24 at 1500 naloxone (Narcan) injection 0.4 mg 0.4 mg, IntraVENous, Every 5 min PRN, opioid reversal, respiratory depression, Starting on 12/10/24 at 1911, +++ For RR <10, pinpoint pupils, over sedation for opioid reversal - MUST notify skilled nursing professional provider immediately after first dose, may give IM or SQ if no IV access +++ ondansetron (Zofran) injection 4 mg(Linked Group 2) 4 mg, IntraVENous, Every 6 hours PRN, nausea, vomiting, Starting on 12/09/24 at 0615, 1st Line. Give IV if patient is unable to take orally. If inadequate response within 60 minutes, proceed to next-line agent or contact provider if no further options ordered. ondansetron ODT (Zofran-ODT) disintegrating tablet 4 mg(Linked Group 2) 4 mg, Oral, Every 8 hours PRN, nausea, vomiting, Starting on 12/09/24 at 0615, 1st Line. If inadequate response within 60 minutes, proceed to next-line agent or contact provider if no further options ordered. Patient should allow tablet to dissolve on tongue. Do not remove from blister pack until just before administering. oxyCODONE (Roxicodone) immediate release tablet 2.5 mg 2.5 mg, Oral, Every 4 hours PRN, moderate pain (4-6), Starting on 12/10/24 at 1856 oxyCODONE (Roxicodone) immediate release tablet 5 mg 5 mg, Oral, Every 4 hours PRN, severe pain (7-10), Starting on 12/10/24 at 1856 0857 (Given - Provider: Jamie Medina RN) polyethylene glycol (PEG) 3350 (Miralax) packet 17 g 17 g, Oral, Daily PRN, constipation, Starting on 12/09/24 at 0615, 1st line for treatment of constipation - give scheduled if no bowel movement in past 24 hours. pregabalin (Lyrica) capsule 25 mg 25 mg, Oral, 2 times daily PRN, anxiety, Starting on 12/11/24 at 0933 QUEtiapine (SEROquel) tablet 12.5 mg 12.5 mg, Oral, 2 times daily PRN, agitation, first line for agitation, [place] PRN Seroquel for ONLY if danger to self/others/treatment, Starting on [place] 12/14/24 at 1520 sodium chloride 0.9 % infusion (COMPLETED) 250 mL/hr, IntraVENous, Administer over 10 Minutes, As needed, For use in priming line prior to transfusion (prime via gravity) and flush line post transfusion, Starting on Wed12/08/24 at 2251, For 1 dose, For use in priming line prior to transfusion (prime via gravity) and flush line post transfusion ONLY. Discontinue once line has been cleared of remaining blood product. 1028 (New Bag - Provider: Kanu Colmenares CRNA)1136 (Anesthesia Volume Adjustment - Provider: Kanu Colmenares CRNA) sodium chloride 0.9 % infusion 5-250 mL/hr, IntraVENous, PRN, if patient receiving piggyback infusions and maintenance fluids are not ordered OR KVO fluids to protect IV site / prevent frequent line interruptions / long duration, Starting on 12/09/24 at 0615, For piggyback infusion, administer at same rate as piggyback for a total of 25 mL. Enter 25 mL into dose field and piggyback rate into rate field of order. If piggyback is infusing at a rate less than 100 mL/hr, enter 25 mL into dose field and 100 mL/hr into rate field of order. For KVO fluids, enter rate of 20 mL/hr or less into rate field of order. sodium chloride 0.9 % infusion 250 mL/hr, IntraVENous, Administer over 10 Minutes, As needed, For use in priming line prior to transfusion (prime via gravity) and flush line post transfusion, Starting on [place] 12/14/24 at 0154, For 1 dose, For use in priming line prior to transfusion (prime via gravity) and flush line post transfusion ONLY. Discontinue once line has been cleared of remaining blood product. sodium chloride 0.9 % infusion 250 mL/hr, IntraVENous, Administer over 10 Minutes, As needed, For use in priming line prior to transfusion (prime via gravity) and flush line post transfusion, Starting on [place] 12/17/24 at 0832, For 1 dose, For use in priming line prior to transfusion (prime via gravity) and flush line post transfusion ONLY. Discontinue once line has been cleared of remaining blood product. sodium chloride 0.9% (NS) flush 5-40 mL 5-40 mL, IntraVENous, PRN, line care, After every IV line use, Starting on 12/09/24 at 0615, For Line Patency: Peripheral IV = 5 mL; Midline or Central Line = 10 mL/lumen. If following IV push medication, administer flush at same rate as the IV push. Flush volume is determined by type of infusion therapy being given. For non-viscous solutions use: Peripheral IV = 5 mL Midline or Central Line = 10 mL/lumen For viscous solutions (i.e. blood components, parenteralnutrition, contrast media, or after obtaining blood sample) use: Peripheral IV = 10 mL Midline or Central Line = 20 mL/lumen stomahesive in petrolatum (ET Mix) Topical, PRN, dry skin, Starting on Wed12/13/24 at 1202 Linked Groups Order Group 1: HYDROmorphone (Dilaudid) injection 0.25 mgJump to med 0.25 mg, IntraVENous, Every 4 hours PRN, moderate pain (4-6), Starting on [place] 12/14/24 at 1311, If oral and IV narcotics ordered, use oral first and only use IV if oral is ineffective or cannot take oral. Do Not give oral and IV within 1 hour of each other unless specifically ordered. Or HYDROmorphone (Dilaudid) injection 0.5 mgJump to med 0.5 mg, IntraVENous, Every 4 hours PRN, severe pain (7-10), Starting on [place] 12/14/24 at 1311, If oral and IV narcotics ordered, use oral first and only use IV if oral is ineffective or cannot take oral. Do Not give oral and IV within 1 hour of each other unless specifically ordered. Group 2: ondansetron ODT (Zofran-ODT) disintegrating tablet 4 mgJump to med 4 mg, Oral, Every 8 hours PRN, nausea, vomiting, Starting on 12/09/24 at 0615, 1st Line. If inadequate response within 60 minutes, proceed to next-line agent or contact provider if no further options ordered. Patient should allow tablet to dissolve on tongue. Do not remove from blister pack until just before administering. Or ondansetron (Zofran) injection 4 mgJump to med 4 mg, IntraVENous, Every 6 hours PRN, nausea, vomiting, Starting on 12/09/24 at 0615, 1st Line. Give IV if patient is unable to take orally. If inadequate response within 60 minutes, proceed to next-line agent or contact provider if no further options ordered. FOR RECORDS PERTAINING TO PATIENTS WHO ARE [...] BE BASED ON THE PRIMARY CLINICAL RECORDS. [facility]. provides no warranty or guarantee of the accuracy or completeness of information in this document.
--- OUTSIDE RECORDS SUMMARY | 2025-01-05 04:16 | XMS RPT_ITS | CCD ---
Author Organization [facility] Inform ion Partnership [facility] Care Team Providers Care Side Seam 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 Name Role Phone Bonyo, Alvarado S Primary Care Provider [phone] Unavailable Primary Care Provider Unavailabl e Bonyo, Alvarado Wes Primary Care Provider Bonyo DO, Alvarado Wes Primary Care Provider [phone] WANG, CARLOS MANUEL Q Referring Unavailable BONYO, [...] Unavailable Primary Care Provider Unavailabl e BICAKODAK DO~[id number], SHAMEKAAKODAK VERJoann Neri g Unavailable SAROJ DENG, RADHA Procedure Practitioner Unav DANIELA Perdue MD Consulting Unavailable JAYANT DO~[id number], JAYANT hedrick Unavailable ROXIE SPAIN MD Primary [...] JOSE G P Consulting Unavaila ble BICAKODAK DO~[phone], BICAKODAK VERA Gueroin g Unavailable ALTHEA DENG, BLANCA Procedure Practitioner UnavailKEV Bledsoe MD Consulting Unavailable POLLOCK DO~[phone], KEITH David Admitting Unavailable ROXIE SPAIN MD [...] MD, GERA Emanuel Consulting Unavailabl e BRENT JOINER, KLEVER Consulting Unavailabl e BRENT JOINER, KLEVER Consulting Unavailabl e MAYLIN LEÓN MD Consulting Unava ilable MAYLIN LEÓN MD Consulting Unava ilable LE DO~[phone], RONDA KRISHNA Admitting Unavai lable LE DO~[id number], RONDA KRISHNA Attending ROXIE Mendoza MD Primary [...] Primary Care Unavailable BLANCA [place] Consulting Unavailable SHAMAR MORE Consulting Unavailable RAFFY FERNANDEZ Attending Unavailable [...] mg by mouth daily. Active epoetin miller 31633 unt/ml injectable solution (4 sources) Erythropoiesis-sti mulating Agent Start: 2024 take 60614 [IU] intravenously once daily 20,000 Units, intravenous, User specified (Once per day on Wednesday), First dose (after last modification) on Wed09/07/24 at 2100, Indications: ESRD on Dialysis Start: 09-06-2024 End: 09-06-2024 10,000 Units, intravenous, O nce, On Wed09/06/24 at 1330, For 1 dose, Please give today.. non-dialysis day..hgb 7.6, Indications: ESRD on Dialysis, anemia Start: 09-05-2024 End: 09-06-2024 take 63071 [IU] intravenously once daily 10,000 Units, intravenous, User specified (Once per day on Wednesday), First dose (after last modification) on Wed09/05/24 at 2100, Indications: ESRD on Dialysis Start: 09-02-2024 End: 09-04-2024 inject 16650 [IU] by subcutaneous injection once daily 10,000 [...] daily as needed (first line for agitation, [place] PRN Seroquel for ONLY if danger to self/others/treatment). 12/20/2024 01/19/2025 Active Start: 10-29-2024 End: 10-29-2024 sodium zirconium cyclosilicate 30100 mg powder for oral suspension (3 sources) [...] Minutes, Every 24 hours, First dose on [facility] 02/19/24 at 0820, For 5 days, Mini-Bag [...] 02/19/24 at 0900 take 1 capsule by la ut once daily cholecalciferol (Vitamin D-3) 125 [...] mg docusate sodium 50 mg / sennosides, halfway 8.6 mg oral tablet (4 sources) Start: [...] End: 12-13-2024 0.5 ml heparin sodium, porcine 03647 unt/ml prefilled syringe (20 sources) Unfractionated Heparin, [...] (2 times per day), First dose on [facility] 02/19/24 at 0900 1 ml HYDROmorphone hydrochloride [...] Skin and Soft Tissue polyethylene glycol 3350 24081 mg powder for oral solution (18 sources) [...] in past 24 hours. 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 THERAPY] Onset: 5 Episodic Other [...] Nursing Noteon 12-28-2024 ED Nursing Note Normal [facility] ED Provider Noteon 5 ED Provider Note Normal [facility] Laboratory - Chemistry and C hemistry - challengeon 12-28-2024 Glucose [Mass/Vol] 80 mg/dL 70 - 100 mg/dL [facility] No Panel Informationon 12-28 Interpretation and review of laboratory results Normal [facility] Performed by: Haley Kirk, [address] [facility] [place] [address] CLIA ID: [id number] [facility] Basic Metabolic Profile (BMP )on 12-25-2024 CO2 [Moles/Vol] 24.2 mmol/L Normal 21.0-32.0 [facility] Comment on above: Result Comment: AMENDED REPORT 12/25/24 1007 CO2 previously reported as: 24.1 mmol/L Performed By: #### L 100.0500, L500.2500 #### [facility] [address] [place], [address] GAP 14 Normal 5-15 [facility] Comment on above: Performed By: #### L 100.0500, L500.2500 #### [facility] [address] [place], [address] CBC-Complete Blood Cnt No Di ffon 12-25-2024 Erythrocyte distribution width (RBC) [Ratio] 17.0 % High 11.6-14.6 [facility] Comment on above: Performed By: #### L 100.0500, L500.2500 #### [facility] [address] [place], [address] Hematocrit (Bld) [Volume fraction] 26.1 % Low 37-47 [facility] Comment on above: Performed By: #### L 100.0500, L500.2500 #### [facility] [address] [place], [address] Hemoglobin (Bld) [Mass/Vol] 8.5 g/dL Low 12.0-15.0 [facility] Comment on above: Performed By: #### L 100.0500, L500.2500 #### [facility] [address] [place], [address] MCH (RBC) [Entitic mass] 31.5 pg Normal 27.0-32.0 [facility] Comment on above: Performed By: #### L 100.0500, L500.2500 #### [facility] [address] [place], [address] MCHC (RBC) [Mass/Vol] 32.6 g/dL Normal 32-36 [facility] Comment on above: Performed By: #### L 100.0500, L500.2500 #### [facility] [address] [place], [address] MCV (RBC) [Entitic vol] 96.7 fL Normal 81-[address] [facility] Comment on above: Performed By: #### L 100.0500, L500.2500 #### [facility] [address] [place], [address] Platelet mean volume (Bld) [Entitic vol] 10.9 fL Normal 6.2-12.0 [facility] Comment on above: Performed By: #### L 100.0500, L500.2500 #### [facility] [address] [place], [address] Platelets (Bld) [#/Vol] 435 10*3/uL Normal 150-450 [facility] Comment on above: Performed By: #### L 100.0500, L500.2500 #### [facility] [address] [place], [address] RBC (Bld) [#/Vol] 2.70 10*6/uL Low 4.2-5.4 [facility] Comment on above: Performed By: #### L 100.0500, L500.2500 #### [facility] [address] [place], [address] RDW SD 58.0 fl High 35.1-43.9 [facility] Comment on above: Performed By: #### L 100.0500, L500.2500 #### [facility] [address] [place], [address] WBC (Bld) [#/Vol] 11.2 10*3/uL High 4.4-11.0 [facility] Comment on above: Performed By: #### L 100.0500, L500.2500 #### [facility] [address] [place], [address] [id number] [id number] Transportation confirmed for 630. Called and spoke to brother Deshawn with update on time of discharge. RN and community mental health worker notified via secure chat. [facility] [phone] Discharge med list transmitted to [facility] via [facility] per TCC request. [facility] [phone] [facility] [phone] Discharge order note d in epic. [facility] tasked to set up cot transport for return to [facility]. [facility] CBC (HEMOGRAM)on 12-20-2024 Erythrocyte distribution width (RBC) [Ratio] 15.9 % High 11.5-15.0 [facility] Comment on above: Performed By: #### L [id number] ####Job Service Consultant: PHILLY FRANCO ([id number])[address] Hematocrit (Bld) [Volume fraction] 20.9 % Low 35.0-47.0 [facility] Comment on above: Performed By: #### L [id number] ####Job Service Consultant: PHILLY FRANCO ([id number])[place] [address] [place] Hemoglobin (Bld) [Mass/Vol] 7.1 g/dL Low 11.7-16.0 [facility] Comment on above: Performed By: #### L [id number] ####Job Service Consultant: PHILLY FRANCO ([phone])[facility] ([facility])[address] [place] [address] MCH (RBC) [Entitic mass] 31.4 pg Normal 26.0-34.0 [facility] Comment on above: Performed By: #### L AB294 ####Job Service Consultant: PHILLY FRANCO ([phone])[facility])[address] [place] [address] MCHC 34.0 % Normal 30.5-36.0 [facility] Comment on above: Performed By: #### L AB294 ####Job Service Consultant: PHILLY FRANCO ([phone])[facility] ([facility])[address] [place] [address] MCV (RBC) [Entitic vol] 92.5 fL Normal 77.0-99.[address] [facility] Comment on above: Performed By: #### L AB294 ####Job Service Consultant: PHILLY FRANCO ([phone])[facility] ([facility])[address] [place] [address] Platelet mean volume (Bld) [Entitic vol] 10.8 fL Normal 9.0-12.7 [facility] Comment on above: Performed By: #### L [id number] ####Job Service Consultant: PHILLY FRANCO ([phone])[facility] ([facility])[address] [place] [address] Platelets (Bld) [#/Vol] 237 10*3/uL Normal 140-440 [facility] Comment on above: Performed By: #### L [id number] ####Job Service Consultant: PHILLY FRANCO ([phone])[facility] ([facility])[address] [place] [address] RBC (Bld) [#/Vol] 2.26 10*6/uL Low 3.80-5.20 [facility] Comment on above: Performed By: #### L [id number] ####Job Service Consultant: PHILLY FRANCO ([phone])[facility] ([facility])[address] [place] [address] WBC (Bld) [#/Vol] 12.1 10*3/uL High 3.6-10.7 [facility] Comment on above: Performed By: #### L [id number] ####Job Service Consultant: PHILLY FRANCO ([phone])[facility] ([facility])[address] [place] [address] CBC panel Auto (Bld)on 12-20 Erythrocyte distribution width (RBC) [Ratio] 15.9 % High 11.5 - 15.0 % [facility] Hematocrit (Bld) [Volume fraction] 20.9 % Low 35.0 - 47.0 % [facility] Hemoglobin (Bld) [Mass/Vol] 7.1 g/dL Low 11.7 - 16.0 g/dL [facility] Interpretation and review of laboratory results Abnormal [facility] MCH (RBC) [Entitic mass] 31.4 pg 26.0 - 34.0 pg [facility] MCHC (RBC) [Mass/Vol] 34 % 30.5 - 36.0 % [facility] MCV (RBC) [Entitic vol] 92.5 fL 77.0 - 99.0 fL [facility] Platelet mean volume (Bld) [Entitic vol] 10.8 fL 9.0 - 12.7 fL [facility] Platelets (Bld) [#/Vol] 237 10*3/uL 140 - 440 10*3/uL [facility] RBC (Bld) [#/Vol] 2.26 10*6/uL Low 3.80 - 5.2 0 10*6/uL [facility] WBC (Bld) [#/Vol] 12.1 10*3/uL High 3.6 - 10.7 10*3/uL [facility] COMPREHENSIVE METABOLIC PANE Fam 12-20-2024 Albumin [Mass/Vol] 1.1 g/dL Low 3.4-4.8 [facility] Comment on above: Performed By: #### L AB17 ####Job Service Consultant: PHILLY FRANCO ([phone])[facility] ([facility])[address] [place] [address] [place] ALP [Catalytic activity/Vol] 155 U/L High 40-150 [facility] Comment on above: Performed By: #### L AB17 ####Job Service Consultant: PHILLY FRANCO ([phone])[facility] ([facility])[address] [place] [address] [place] ALT [Catalytic activity/Vol] U/L Normal <30 [facility] Comment on above: Performed By: #### L AB17 ####Job Service Consultant: PHILLY FRANCO ([phone])[facility] ([facility])[address] [place] [address] Anion gap [Moles/Vol] 7 mmol/L Normal 3-13 [facility] Comment on above: Performed By: #### L AB17 ####Job Service Consultant: PHILLY FRANCO ([phone])[facility] ([facility])[address] [place] [address] AST [Catalytic activity/Vol] 57 U/L High <34 [facility] Comment on above: Result Comment: TCPo tential interference from hemolysis Performed By: #### L AB17 ####Job Service Consultant: PHILLY FRANCO ([phone])[facility] ([facility])[address] [place] [address] Bilirubin [Mass/Vol] 0.6 mg/dL Normal <1.2 [facility] Comment on above: Performed By: #### L AB17 ####Job Service Consultant: PIHLLY FRANCO ([id number])[facility] ([facility])[address] [place] [address] Calcium [Mass/Vol] 6.5 mg/dL Low 8.8-10.0 [facility] Comment on above: Performed By: #### L AB17 ####Job Service Consultant: PHILLY FRANCO ([phone])[facility] ([facility])[address] [place] [address] [place] Chloride [Moles/Vol] 106 mmol/L Normal 98-107 [facility] Comment on above: Performed By: #### L AB17 ####Job Service Consultant: PHILLY FRANCO ([id number])[facility])[address] [place] [address] CO2 [Moles/Vol] 21 mmol/L Low 23-31 [facility] Comment on above: Performed By: #### L AB17 ####Job Service Consultant: PHILLY FRANCO ([phone])[facility])[address] [place] [address] Creatinine [Mass/Vol] 2.84 mg/dL High 0.57-1.11 [facility] Comment on above: Performed By: #### L AB17 ####Job Service Consultant: PHILLY FRANCO ([phone])[address] GLOMERULAR FILTRATION RATE ML/MIN/1.73 SQ M.PREDICTED 16.9 mL/min/1.73m*2 Low >60.0 [facility] Comment on above: Result Comment: Calc ulation based on the Chronic Kidney Disease Epidemiology Collaboration (CKD-EPI) equation refit without adjustment for race Performed By: #### L AB17 ####Job Service Consultant: PHILLY FRANCO ([phone])[facility])[address] [place] [address] Glucose [Mass/Vol] 72 mg/dL Low 82-115 [facility] Comment on above: Performed By: #### L AB17 ####Job Service Consultant: PHILLY FRANCO ([phone])[facility])[address] [place] [address] Potassium [Moles/Vol] 4.3 mmol/L Normal 3.5-5.1 [facility] Comment on above: Result Comment: [facility] potassium values may be up to 0.5 mmol/L lower than serum values. Performed By: #### L AB17 ####Job Service Consultant: PHILLY FRANCO ([phone])[facility])[address] [place] [address] Protein [Mass/Vol] 5.1 g/dL Low 6.4-8.3 [facility] Comment on above: Performed By: #### L AB17 ####Job Service Consultant: PHILLY FRANCO ([phone])[facility])[address] [place] [address] Sodium [Moles/Vol] 134 mmol/L Low 136-145 [facility] Comment on above: Performed By: #### L AB17 ####Job Service Consultant: PHILLY FRANCO ([phone])[facility] ([facility])[address] [place] [address] Urea nitrogen [Mass/Vol] 15 mg/dL Normal 9-23 [facility] Comment on above: Performed By: #### L AB17 ####Job Service Consultant: PHILLY FRANOC ([id number])[facility] ([facility])[address] [place] [address] Comprehensive metabolic 1998 panelon 12-20-2024 Albumin [Mass/Vol] 1.1 g/dL Low 3.4 - 4.8 g/dL [facility] ALP [Catalytic activity/Vol] 155 U/L High 40 - 150 U/L [facility] ALT [Catalytic activity/Vol] U/L NINF - 30 U/L [facility] Anion gap [Moles/Vol] 7 mmol/L 3 - 13 mmol/L [facility] AST [Catalytic activity/Vol] 57 U/L High NINF - 34 U/L [facility] Bilirubin [Mass/Vol] 0.6 mg/dL NINF - 1.2 mg/dL [facility] Calcium [Mass/Vol] 6.5 mg/dL Low 8.8 - 10. 0 mg/dL [facility] Chloride [Moles/Vol] 106 mmol/L 98 - 10 7 mmol/L [facility] CO2 [Moles/Vol] 21 mmol/L Low 23 - 31 mmol/L [facility] Creatinine [Mass/Vol] 2.84 mg/dL High 0.57 - 1.11 mg/dL [facility] GFR/1.73 sq M.predicted (S/P/Bld) [Vol rate/Area] 16.9 mL/min Low - PINF [facility] Glucose [Mass/Vol] 72 mg/dL Low 82 - 115 mg/dL [facility] Interpretation and review of laboratory results Abnormal [facility] Potassium [Moles/Vol] 4.3 mmol/L 3.5 - 5.1 mmol/L [facility] Protein [Mass/Vol] 5.1 g/dL Low 6.4 - 8.3 g/dL [facility] Sodium [Moles/Vol] 134 mmol/L Low 136 - 145 mmol/L [facility] Urea nitrogen [Mass/Vol] 15 mg/dL 9 - 23 mg/dL [facility] - Chemistry and C hemistry - challengeon 12-20-2024 Glucose [Mass/Vol] 72 mg/dL 70 - 100 mg/dL [facility] Glucose [Mass/Vol] 73 mg/dL 70 - 100 mg/dL [facility] Glucose [Mass/Vol] 88 mg/dL 70 - 100 mg/dL [facility] No Panel Informationon 12-20 Interpretation and review of laboratory results Normal [facility] Interpretation and review of laboratory results Normal [facility] Interpretation and review of laboratory results Normal [facility] Nursing Noteon 12-20-2024 Nursing Note Attempted to call report to [facility]. No answer. Normal [facility] Nursing Note Discharge order placed. IVS removed. Transport here to take pt to SNF. Normal [facility] Nursing Note Normal [facility] Progress Noteon 12-20-2024 Progress Note Normal [facility] Progress Note Normal [facility] Progress Note Normal [facility] Progress Note Normal [facility] CBC (HEMOGRAM)on 12-19-2024 Erythrocyte distribution width (RBC) [Ratio] 15.5 % High 11.5-15.0 [facility] Comment on above: Performed By: #### L [id number] ####Job Service Consultant: PHILLY FRANCO ([phone])[facility] ([address] Hematocrit (Bld) [Volume fraction] 23.6 % Low 35.0-47.0 [facility] Comment on above: Performed By: #### L [id number] ####Job Service Consultant: PHILLY FRANCO ([phone])[facility])[address] [place] [address] Hemoglobin (Bld) [Mass/Vol] 8.2 g/dL Low 11.7-16.0 [facility] Comment on above: Performed By: #### L [id number] ####Job Service Consultant: PHILLY FRANCO ([phone])[facility])[address] [place] [address] MCH (RBC) [Entitic mass] 30.9 pg Normal 26.0-34.0 [facility] Comment on above: Performed By: #### L [id number] ####Job Service Consultant: PHILLY FRANCO ([phone])[facility])[address] [place] [address] MCHC 34.7 % Normal 30.5-36.0 [facility] Comment on above: Performed By: #### L [id number] ####Job Service Consultant: PHILLY FRANCO ([phone])[facility])[address] [place] [address] MCV (RBC) [Entitic vol] 89.1 fL Normal 77.0-99.[address] [facility] Comment on above: Performed By: #### L [id number] ####Job Service Consultant: PHILLY FRANCO ([phone])[facility])[address] [place] [address] Platelet mean volume (Bld) [Entitic vol] 10.7 fL Normal 9.0-12.7 [facility] Comment on above: Performed By: #### L [id number] ####Job Service Consultant: PHILLY FRANCO ([phone])[facility])[address] [place] [address] [place] Platelets (Bld) [#/Vol] 274 10*3/uL Normal 140-440 [facility] Comment on above: Performed By: #### L [id number] ####Job Service Consultant: PHILLY FRANCO ([phone])[facility])[address] [place] [address] RBC (Bld) [#/Vol] 2.65 10*6/uL Low 3.80-5.20 [facility] Comment on above: Performed By: #### L [id number] ####Job Service Consultant: PHILLY FRANCO ([phone])[facility] ([facility])[address] [place] [address] WBC (Bld) [#/Vol] 15.7 10*3/uL High 3.6-10.7 [facility] Comment on above: Performed By: #### L [id number] ####Job Service Consultant: PHILLY FRANCO ([phone])[facility] ([facility])[address] [place] [address] CBC panel Auto (Bld)on 12-19 Erythrocyte distribution width (RBC) [Ratio] 15.5 % High 11.5 - 15.0 % [facility] Hematocrit (Bld) [Volume fraction] 23.6 % Low 35.0 - 47.0 % [facility] Hemoglobin (Bld) [Mass/Vol] 8.2 g/dL Low 11.7 - 16.0 g/dL [facility] Interpretation and review of laboratory results Abnormal [facility] MCH (RBC) [Entitic mass] 30.9 pg 26.0 - 34.0 pg [facility] MCHC (RBC) [Mass/Vol] 34.7 % 30.5 - 36.0 % [facility] MCV (RBC) [Entitic vol] 89.1 fL 77.0 - 99.0 fL [facility] Platelet mean volume (Bld) [Entitic vol] 10.7 fL 9.0 - 12.7 fL [facility] Platelets (Bld) [#/Vol] 274 10*3/uL 140 - 440 10*3/uL [facility] RBC (Bld) [#/Vol] 2.65 10*6/uL Low 3.80 - 5.2 0 10*6/uL [facility] WBC (Bld) [#/Vol] 15.7 10*3/uL High 3.6 - 10.7 10*3/uL [facility] COMPREHENSIVE METABOLIC PANE Fam 12-19-2024 Albumin [Mass/Vol] 1.2 g/dL Low 3.4-4.8 [facility] Comment on above: Performed By: #### L [id number] ####Job Service Consultant: PHILLY FRANCO ([phone])[facility] ([facility])[address] [place] [address] ALP [Catalytic activity/Vol] 144 U/L Normal 40-150 [facility] Comment on above: Performed By: #### L AB17 ####Job Service Consultant: PHILLY FRANCO ([phone])[facility] ([facility])[address] [place] [address] ALT [Catalytic activity/Vol] U/L Normal <30 [facility] Comment on above: Performed By: #### L AB17 ####Job Service Consultant: PHILLY FRANCO ([phone])[facility] ([facility])[address] [place] [address] Anion gap [Moles/Vol] 8 mmol/L Normal 3-13 [facility] Comment on above: Performed By: #### L AB17 ####Job Service Consultant: PHILLY FRANCO ([id number])[facility] ([facility])[address] [place] [address] AST [Catalytic activity/Vol] 49 U/L High <34 [facility] Comment on above: Performed By: #### L AB17 ####Job Service Consultant: PHILLY FRANCO ([phone])[facility] ([facility])[address] [place] [address] Bilirubin [Mass/Vol] 0.5 mg/dL Normal <1.2 [facility] Comment on above: Performed By: #### L AB17 ####Job Service Consultant: PHILLY FRANCO ([phone])[facility] ([facility])[address] [place] [address] [place] Calcium [Mass/Vol] 7.3 mg/dL Low 8.8-10.0 [facility] Comment on above: Performed By: #### L AB17 ####Job Service Consultant: PHILLY FRANCO ([phone])[facility] ([facility])[address] [place] [address] [place] Chloride [Moles/Vol] 102 mmol/L Normal 98-107 [facility] Comment on above: Performed By: #### L [id number] ####Job Service Consultant: PHILLY FRANCO ([phone])[facility])[address] [place] [address] CO2 [Moles/Vol] 25 mmol/L Normal 23-31 [facility] Comment on above: Performed By: #### L AB17 ####Job Service Consultant: PHILLY FRANCO ([phone])[facility])[address] [place] [address] Creatinine [Mass/Vol] 2.25 mg/dL High 0.57-1.11 [facility] Comment on above: Performed By: #### L AB17 ####Job Service Consultant: PHILLY FRANCO ([phone])[address] GLOMERULAR FILTRATION RATE ML/MIN/1.73 SQ M.PREDICTED 22.4 mL/min/1.73m*2 Low >60.0 [facility] Comment on above: Result Comment: Calc ulation based on the Chronic Kidney Disease Epidemiology Collaboration (CKD-EPI) equation refit without adjustment for race Performed By: #### L AB17 ####Job Service Consultant: PHILLY FRANCO ([phone])[address] Glucose [Mass/Vol] 73 mg/dL Low 82-115 [facility] Comment on above: Performed By: #### L AB17 ####Job Service Consultant: PHILLY FRANCO ([phone])[address] Potassium [Moles/Vol] 3.9 mmol/L Normal 3.5-5.1 [facility] Comment on above: Result Comment: [facility] potassium values may be up to 0.5 mmol/L lower than serum values. Performed By: #### L [id number] ####Job Service Consultant: PHILLY FRANCO ([phone])[facility])[address] [place] [address] Protein [Mass/Vol] 5.3 g/dL Low 6.4-8.3 [facility] Comment on above: Performed By: #### L [id number] ####Job Service Consultant: PHILLY FRANCO ([phone])[facility] ([facility])[address] [place] [address] Sodium [Moles/Vol] 135 mmol/L Low 136-145 [facility] Comment on above: Performed By: #### L AB17 ####Job Service Consultant: PHILLY FRANCO ([phone])[facility] ([facility])[address] [place] [address] Urea nitrogen [Mass/Vol] 11 mg/dL Normal 9-23 [facility] Comment on above: Performed By: #### L [id number] ####Job Service Consultant: PHILLY FRANCO ([phone])[facility] ([facility])[address] [place] [address] Comprehensive metabolic 1998 panelOrdered By: Mak Hobbs on 12-19-2024 Albumin [Mass/Vol] 1.2 g/dL Low 3.4 - 4.8 g/dL [facility] ALP [Catalytic activity/Vol] 144 U/L 40 - 150 U/L [facility] ALT [Catalytic activity/Vol] U/L NINF - 30 U/L [facility] Anion gap [Moles/Vol] 8 mmol/L 3 - 13 mmol/L [facility] AST [Catalytic activity/Vol] 49 U/L High NINF - 34 U/L [facility] Bilirubin [Mass/Vol] 0.5 mg/dL NINF - 1.2 mg/dL [facility] Calcium [Mass/Vol] 7.3 mg/dL Low 8.8 - 10. 0 mg/dL [facility] Chloride [Moles/Vol] 102 mmol/L 98 - 10 7 mmol/L [facility] CO2 [Moles/Vol] 25 mmol/L 23 - 31 mmol/L [facility] Creatinine [Mass/Vol] 2.25 mg/dL High 0.57 - 1.11 mg/dL [facility] GFR/1.73 sq M.predicted (S/P/Bld) [Vol rate/Area] 22.4 mL/min Low - PINF [facility] Glucose [Mass/Vol] 73 mg/dL Low 82 - 115 mg/dL [facility] Interpretation and review of laboratory results Abnormal [facility] Potassium [Moles/Vol] 3.9 mmol/L 3.5 - 5.1 mmol/L [facility] Protein [Mass/Vol] 5.3 g/dL Low 6.4 - 8.3 g/dL [facility] Sodium [Moles/Vol] 135 mmol/L Low 136 - 145 mmol/L [facility] Urea nitrogen [Mass/Vol] 11 mg/dL 9 - 23 mg/dL [facility] HEMOGLOBIN AND HEMATOCRIT, B LOODon 12-19-2024 Hematocrit (Bld) [Volume fraction] 24.0 % Low 35.0-47.0 [facility] Comment on above: Performed By: #### L [id number] ####Job Service Consultant: PHILLY FRANCO ([phone])[facility])[address] [place] [address] Hemoglobin (Bld) [Mass/Vol] 8.1 g/dL Low 11.7-16.0 [facility] Comment on above: Performed By: #### L [id number] ####Job Service Consultant: PHILLY FRANCO ([phone])[address] Hemoglobin (Bld) [Mass/Vol]o n 12-19-2024 Hematocrit (Bld) [Volume fraction] 24 % Low 35.0 - 47.0 % [facility] Interpretation and review of laboratory results Abnormal [facility] Laboratory - Chemistry and C hemistry - challengeon 12-19-2024 Glucose [Mass/Vol] 84 mg/dL 70 - 100 mg/dL [facility] Glucose [Mass/Vol] 57 mg/dL Low 70 - 100 mg/dL [facility] Glucose [Mass/Vol] 67 mg/dL Low 70 - 100 mg/dL [facility] Laboratory - Hematology and Cell countson 12-19-2024 Hemoglobin (Bld) [Mass/Vol] 8.1 g/dL Low 11.7 - 16.0 g/dL [facility] No Panel Informationon 12-19 Interpretation and review of laboratory results Normal [facility] Interpretation and review of laboratory results Abnormal [facility] Interpretation and review of laboratory results Abnormal [facility] Nursing Noteon 12-19-2024 Nursing Note Normal [facility] Progress Noteon 12-19-2024 Progress Note Normal [facility] Progress Note Normal [facility] Progress Note Normal [facility] Progress Note Normal [facility] Progress Note Normal [facility] Progress Note Normal [facility] Progress Note Normal [facility] [id number] 12-18-2024 [id number] Normal [facility] [id number] 12-18-2024 [id number] Normal [facility] Anesthesia Noteon 12-18-2024 Anesthesia Note Normal [facility] Anesthesia Note Normal [facility] CBC (HEMOGRAM)on 12-18-2024 Erythrocyte distribution width (RBC) [Ratio] 14.9 % Normal 11.5-15.0 [facility] Comment on above: Performed By: #### L [id number] ####Job Service Consultant: PHILLY FRANCO ([id number])[address] Hematocrit (Bld) [Volume fraction] 25.3 % Low 35.0-47.0 [facility] Comment on above: Performed By: #### L [id number] ####Job Service Consultant: PHILLY FRANCO ([phone])[address] Hemoglobin (Bld) [Mass/Vol] 9.0 g/dL Low 11.7-16.0 [facility] Comment on above: Performed By: #### L [id number] ####Job Service Consultant: PHILLY FRANCO ([phone])[address] MCH (RBC) [Entitic mass] 30.8 pg Normal 26.0-34.0 [facility] Comment on above: Performed By: #### L [id number] ####Job Service Consultant: PHILLY FRANCO ([phone])[address] MCHC 35.6 % Normal 30.5-36.0 [facility] Comment on above: Performed By: #### L [id number] ####Job Service Consultant: PHILLY FRANCO ([phone])[facility] ([facility])[address] [place] [address] MCV (RBC) [Entitic vol] 86.6 fL Normal 77.0-99.[address] [facility] Comment on above: Performed By: #### L [id number] ####Job Service Consultant: PHILLY FRANCO ([phone])[facility] ([facility])[address] [place] [address] Platelet mean volume (Bld) [Entitic vol] 10.7 fL Normal 9.0-12.7 [facility] Comment on above: Performed By: #### L [id number] ####Job Service Consultant: PHILLY FRANCO ([id number])[facility] ([facility])[address] [place] [address] Platelets (Bld) [#/Vol] 327 10*3/uL Normal 140-440 [facility] Comment on above: Performed By: #### L [id number] ####Job Service Consultant: PHILLY FRANCO ([id number])[facility] ([facility])[address] [place] [address] RBC (Bld) [#/Vol] 2.92 10*6/uL Low 3.80-5.20 [facility] Comment on above: Performed By: #### L [id number] ####Job Service Consultant: PHILLY FRANCO ([phone])[facility] ([facility])[address] [place] [address] WBC (Bld) [#/Vol] 19.3 10*3/uL High 3.6-10.7 [facility] Comment on above: Performed By: #### L [id number] ####Job Service Consultant: PHILLY FRANCO ([phone])[facility])[address] [place] [address] CBC panel Auto (Bld)on 12-18 Erythrocyte distribution width (RBC) [Ratio] 14.9 % 11.5 - 15.0 % [facility] Hematocrit (Bld) [Volume fraction] 25.3 % Low 35.0 - 47.0 % [facility] Hemoglobin (Bld) [Mass/Vol] 9 g/dL Low 11.7 - 16.0 g/dL [facility] Interpretation and review of laboratory results Abnormal [facility] MCH (RBC) [Entitic mass] 30.8 pg 26.0 - 34.0 pg [facility] MCHC (RBC) [Mass/Vol] 35.6 % 30.5 - 36.0 % [facility] MCV (RBC) [Entitic vol] 86.6 fL 77.0 - 99.0 fL [facility] Platelet mean volume (Bld) [Entitic vol] 10.7 fL 9.0 - 12.7 fL [facility] Platelets (Bld) [#/Vol] 327 10*3/uL 140 - 440 10*3/uL [facility] RBC (Bld) [#/Vol] 2.92 10*6/uL Low 3.80 - 5.2 0 10*6/uL [facility] WBC (Bld) [#/Vol] 19.3 10*3/uL High 3.6 - 10.7 10*3/uL [facility] COMPREHENSIVE METABOLIC PANE Fam 12-18-2024 Albumin [Mass/Vol] 1.3 g/dL Low 3.4-4.8 [facility] Comment on above: Performed By: #### L [id number] ####Job Service Consultant: PHILLY FRANCO ([phone])[address] ALP [Catalytic activity/Vol] 136 U/L Normal 40-150 [facility] Comment on above: Performed By: #### L AB17 ####Job Service Consultant: PHILLY FRANCO ([phone])[address] ALT [Catalytic activity/Vol] 6 U/L Normal <30 [facility] Comment on above: Performed By: #### L AB17 ####Job Service Consultant: PHILLY FRANCO ([phone])[facility] ([facility])[address] [place] [address] Anion gap [Moles/Vol] 6 mmol/L Normal 3-13 [facility] Comment on above: Performed By: #### L AB17 ####Job Service Consultant: PHILLY FRANCO ([phone])[facility] ([facility])[address] [place] [address] AST [Catalytic activity/Vol] 51 U/L High <34 [facility] Comment on above: Performed By: #### L AB17 ####Job Service Consultant: PHILLY FRANCO ([id number])[facility] ([facility])[address] [place] [address] Bilirubin [Mass/Vol] 0.5 mg/dL Normal <1.2 [facility] Comment on above: Performed By: #### L AB17 ####Job Service Consultant: PHILLY FRANCO ([phone])[facility] ([facility])[address] [place] [address] Calcium [Mass/Vol] 7.3 mg/dL Low 8.8-10.0 [facility] Comment on above: Performed By: #### L AB17 ####Job Service Consultant: PHILLY FRANCO ([phone])[facility] ([facility])[address] [place] [address] Chloride [Moles/Vol] 97 mmol/L Low 98-107 [facility] Comment on above: Performed By: #### L AB17 ####Job Service Consultant: PHILLY FRANCO ([phone])[facility])[address] [place] [address] CO2 [Moles/Vol] 25 mmol/L Normal 23-31 [facility] Comment on above: Performed By: #### L AB17 ####Job Service Consultant: PHILLY FRANCO ([phone])[facility])[address] [place] [address] Creatinine [Mass/Vol] 3.46 mg/dL High 0.57-1.11 [facility] Comment on above: Performed By: #### L AB17 ####Job Service Consultant: PHILLY [id number])[facility])[address] [place] [address] [place] GLOMERULAR FILTRATION RATE ML/MIN/1.73 SQ M.PREDICTED 13.4 mL/min/1.73m*2 Low >60.0 [facility] Comment on above: Result Comment: Calc ulation based on the Chronic Kidney Disease Epidemiology Collaboration (CKD-EPI) equation refit without adjustment for race Performed By: #### L AB17 ####Job Service Consultant: PHILLY FRANCO ([phone])[facility] ([facility])[address] [place] [address] Glucose [Mass/Vol] 89 mg/dL Normal 82-115 [facility] Comment on above: Performed By: #### L AB17 ####Job Service Consultant: PHILLY FRANCO ([phone])[facility])[address] [place] [address] Potassium [Moles/Vol] 4.4 mmol/L Normal 3.5-5.1 [facility] Comment on above: Result Comment: [facility] potassium values may be up to 0.5 mmol/L lower than serum values. Performed By: #### L AB17 ####Job Service Consultant: PHILLY FRANCO ([phone])[facility])[address] [place] [address] [place] Protein [Mass/Vol] 5.5 g/dL Low 6.4-8.3 [facility] Comment on above: Performed By: #### L AB17 ####Job Service Consultant: PHILLY FRANCO ([phone])[facility])[address] [place] [address] [place] Sodium [Moles/Vol] 128 mmol/L Low 136-145 [facility] Comment on above: Performed By: #### L AB17 ####Job Service Consultant: PHILLY FRANCO ([phone])[facility])[address] [place] [address] [place] Urea nitrogen [Mass/Vol] 18 mg/dL Normal 9-23 [facility] Comment on above: Performed By: #### L AB17 ####Job Service Consultant: PHILLY FRANCO ([phone])[facility] ([address] Comprehensive metabolic 1998 panelon 12-18-2024 Albumin [Mass/Vol] 1.3 g/dL Low 3.4 - 4.8 g/dL [facility] ALP [Catalytic activity/Vol] 136 U/L 40 - 150 U/L [facility] ALT [Catalytic activity/Vol] 6 U/L NINF - 30 U/L [facility] Anion gap [Moles/Vol] 6 mmol/L 3 - 13 mmol/L [facility] AST [Catalytic activity/Vol] 51 U/L High NINF - 34 U/L [facility] Bilirubin [Mass/Vol] 0.5 mg/dL NINF - 1.2 mg/dL [facility] Calcium [Mass/Vol] 7.3 mg/dL Low 8.8 - 10. 0 mg/dL [facility] Chloride [Moles/Vol] 97 mmol/L Low 98 - 10 7 mmol/L [facility] CO2 [Moles/Vol] 25 mmol/L 23 - 31 mmol/L [facility] Creatinine [Mass/Vol] 3.46 mg/dL High 0.57 - 1.11 mg/dL [facility] GFR/1.73 sq M.predicted (S/P/Bld) [Vol rate/Area] 13.4 mL/min Low - PINF [facility] Glucose [Mass/Vol] 89 mg/dL 82 - 115 mg/dL [facility] Interpretation and review of laboratory results Abnormal [facility] Potassium [Moles/Vol] 4.4 mmol/L 3.5 - 5.1 mmol/L [facility] Protein [Mass/Vol] 5.5 g/dL Low 6.4 - 8.3 g/dL [facility] Sodium [Moles/Vol] 128 mmol/L Low 136 - 145 mmol/L [facility] Urea nitrogen [Mass/Vol] 18 mg/dL 9 - 23 mg/dL [facility] HEMOGLOBIN AND HEMATOCRIT, B LOODon 12-18-2024 Hematocrit (Bld) [Volume fraction] 22.6 % Low 35.0-47.0 [facility] Comment on above: Performed By: #### L [id number] ####Job Service Consultant: PHILLY FRANCO ([phone])[facility] ([facility])[address] [place] [address] Hemoglobin (Bld) [Mass/Vol] 7.9 g/dL Low 11.7-16.0 [facility] Comment on above: Performed By: #### L [id number] ####Job Service Consultant: PHILLY FRANCO ([phone])[facility] ([facility])[address] [place] [address] Hematocrit (Bld) [Volume fraction] 25.1 % Low 35.0-47.0 [facility] Comment on above: Performed By: #### L [id number] ####Job Service Consultant: PHILLY FRANCO ([phone])[facility] ([facility])[address] [place] [address] Hemoglobin (Bld) [Mass/Vol] 8.8 g/dL Low 11.7-16.0 [facility] Comment on above: Performed By: #### L [id number] ####Job Service Consultant: PHILLY FRANCO ([phone])[facility] ([facility])[address] [place] [address] Hemoglobin (Bld) [Mass/Vol]o n 12-18-2024 Hematocrit (Bld) [Volume fraction] 22.6 % Low 35.0 - 47.0 % [facility] Interpretation and review of laboratory results Abnormal [facility] Hematocrit (Bld) [Volume fraction] 25.1 % Low 35.0 - 47.0 % [facility] Interpretation and review of laboratory results Abnormal [facility] Laboratory - Chemistry and C hemistry - challengeon 12-18-2024 Glucose [Mass/Vol] 93 mg/dL 70 - 100 mg/dL [facility] Glucose [Mass/Vol] 83 mg/dL 70 - 100 mg/dL [facility] Laboratory - Hematology and Cell countson 12-18-2024 Hemoglobin (Bld) [Mass/Vol] 7.9 g/dL Low 11.7 - 16.0 g/dL [facility] Hemoglobin (Bld) [Mass/Vol] 8.8 g/dL Low 11.7 - 16.0 g/dL [facility] MR Brain WO contraston 12-18 [facility] Radiology Study observation (narrative) [facility] MR Brain WO contrastOrdered By: Andrea Gonzales on 12-18-2024 [facility] Work Phone: MR Cervical spine WO and W c ontrast Indu 12-18-2024 [facility] Radiology Study observation (narrative) [facility] No Panel Informationon 12-18 Interpretation and review of laboratory results Normal [facility] Interpretation and review of laboratory results Normal [facility] Nursing Noteon 12-18-2024 Nursing Note Normal [facility] Progress Noteon 12-18-2024 Progress Note Vancomycin therapy h as been discontinued by Dr. Shamar More on 12/18/24. Thank you for the consult. Pharmacy signing off for vancomycin dosing. Jess Byrd [facility], Date: 12/18/24 Time: 3:54 PM Normal [facility] Progress Note Normal [facility] Progress Note Normal [facility] Progress Note Normal [facility] Progress Note Normal [facility] Progress Note Normal [facility] Progress Note Normal [facility] Progress Note Normal [facility] Bacteria identified Cx Nom ( Bld)on 12-17-2024 Interpretation and review of laboratory results Normal [facility] CBC (HEMOGRAM)on 12-17-2024 Erythrocyte distribution width (RBC) [Ratio] 17.6 % High 11.5-15.0 [facility] Comment on above: Performed By: #### L [id number] ####Job Service Consultant: PHILLY FRANCO ([phone])[facility] ([address] Hematocrit (Bld) [Volume fraction] 12.6 % Low 35.0-47.0 [facility] Comment on above: Performed By: #### L [id number] ####Job Service Consultant: PHILLY FRANCO ([phone])[facility] ([facility])[address] [place] [address] Hemoglobin (Bld) [Mass/Vol] 4.2 g/dL Critically low 11.7-16.0 [facility] Comment on above: Performed By: #### L [id number] ####Job Service Consultant: PHILLY FRANCO ([phone])[facility])[address] [place] [address] MCH (RBC) [Entitic mass] 30.2 pg Normal 26.0-34.0 [facility] Comment on above: Performed By: #### L [id number] ####Job Service Consultant: PHILLY FRANCO ([phone])[facility] ([facility])[address] [place] [address] MCHC 33.3 % Normal 30.5-36.0 [facility] Comment on above: Performed By: #### L [id number] ####Job Service Consultant: PHILLY FRANCO ([phone])[facility])[address] [place] [address] MCV (RBC) [Entitic vol] 90.6 fL Normal 77.0-99.[address] [facility] Comment on above: Performed By: #### L [id number] ####Job Service Consultant: PHILLY FRANCO ([phone])[facility] ([facility])[address] [place] [address] Platelet mean volume (Bld) [Entitic vol] 11.0 fL Normal 9.0-12.7 [facility] Comment on above: Performed By: #### L [id number] ####Job Service Consultant: PHILLY FRANCO ([phone])[facility])[address] [place] [address] Platelets (Bld) [#/Vol] 350 10*3/uL Normal 140-440 [facility] Comment on above: Performed By: #### L [id number] ####Job Service Consultant: PHILLY FRANCO ([phone])[facility])[address] [place] [address] RBC (Bld) [#/Vol] 1.39 10*6/uL Low 3.80-5.20 [facility] Comment on above: Performed By: #### L [id number] ####Job Service Consultant: PHILLY FRANCO ([phone])[facility])[address] [place] [address] WBC (Bld) [#/Vol] 12.8 10*3/uL High 3.6-10.7 [facility] Comment on above: Performed By: #### L [id number] ####Job Service Consultant: PHILLY FRANCO ([id number])[facility])[address] [place] [address] Erythrocyte distribution width (RBC) [Ratio] 17.6 % High 11.5-15.0 [facility] Comment on above: Performed By: #### L [id number] ####Job Service Consultant: PHILLY FRANCO ([phone])[facility])[address] [place] [address] Hematocrit (Bld) [Volume fraction] 12.6 % Low 35.0-47.0 [facility] Comment on above: Performed By: #### L [id number] ####Job Service Consultant: PHILLY FRANCO ([phone])[address] Hemoglobin (Bld) [Mass/Vol] 4.1 g/dL Critically low 11.7-16.0 [facility] Comment on above: Performed By: #### L [id number] ####Job Service Consultant: PHILLY FRANCO ([phone])[facility])[address] [place] [address] MCH (RBC) [Entitic mass] 29.5 pg Normal 26.0-34.0 [facility] Comment on above: Performed By: #### L [id number] ####Job Service Consultant: PHILLY FRANCO ([phone])[address] MCHC 32.5 % Normal 30.5-36.0 [facility] Comment on above: Performed By: #### L [id number] ####Job Service Consultant: PHILLY FRANCO ([id number])[facility])[address] [place] [address] MCV (RBC) [Entitic vol] 90.6 fL Normal 77.0-99.[address] [facility] Comment on above: Performed By: #### L [id number] ####Job Service Consultant: PHILLY FRANCO ([id number])[facility])[address] [place] [address] Platelet mean volume (Bld) [Entitic vol] 10.7 fL Normal 9.0-12.7 [facility] Comment on above: Performed By: #### L [id number] ####Job Service Consultant: PHILLY FRANCO ([phone])[facility])[address] [place] [address] Platelets (Bld) [#/Vol] 322 10*3/uL Normal 140-440 [facility] Comment on above: Performed By: #### L [id number] ####Job Service Consultant: PHILLY FRANCO ([phone])[facility])[address] [place] [address] RBC (Bld) [#/Vol] 1.39 10*6/uL Low 3.80-5.20 [facility] Comment on above: Performed By: #### L [id number] ####Job Service Consultant: PHILLY FRANCO ([phone])[facility])[address] [place] [address] WBC (Bld) [#/Vol] 11.3 10*3/uL High 3.6-10.7 [facility] Comment on above: Performed By: #### L [id number] ####Job Service Consultant: PHILLY FRANCO ([phone])[facility])[address] [place] [address] CBC panel Auto (Bld)Ordered By: Lindy Johansen on 12-17-2024 Erythrocyte distribution width (RBC) [Ratio] 17.6 % High 11.5 - 15.0 % [facility] Hematocrit (Bld) [Volume fraction] 12.6 % Low 35.0 - 47.0 % [facility] Hemoglobin (Bld) [Mass/Vol] 4.2 g/dL Critically low 11.7 - 16.0 g/dL [facility] Interpretation and review of laboratory results Abnormal [facility] MCH (RBC) [Entitic mass] 30.2 pg 26.0 - 34.0 pg [facility] MCHC (RBC) [Mass/Vol] 33.3 % 30.5 - 36.0 % [facility] MCV (RBC) [Entitic vol] 90.6 fL 77.0 - 99.0 fL [facility] Platelet mean volume (Bld) [Entitic vol] 11 fL 9.0 - 12.7 fL [facility] Platelets (Bld) [#/Vol] 350 10*3/uL 140 - 440 10*3/uL [facility] RBC (Bld) [#/Vol] 1.39 10*6/uL Low 3.80 - 5.2 0 10*6/uL [facility] WBC (Bld) [#/Vol] 12.8 10*3/uL High 3.6 - 10.7 10*3/uL [facility] CBC panel Auto (Bld)on 12-17 Erythrocyte distribution width (RBC) [Ratio] 17.6 % High 11.5 - 15.0 % [facility] Hematocrit (Bld) [Volume fraction] 12.6 % Low 35.0 - 47.0 % [facility] Hemoglobin (Bld) [Mass/Vol] 4.1 g/dL Critically low 11.7 - 16.0 g/dL [facility] Interpretation and review of laboratory results Abnormal [facility] MCH (RBC) [Entitic mass] 29.5 pg 26.0 - 34.0 pg [facility] MCHC (RBC) [Mass/Vol] 32.5 % 30.5 - 36.0 % [facility] MCV (RBC) [Entitic vol] 90.6 fL 77.0 - 99.0 fL [facility] Platelet mean volume (Bld) [Entitic vol] 10.7 fL 9.0 - 12.7 fL [facility] Platelets (Bld) [#/Vol] 322 10*3/uL 140 - 440 10*3/uL [facility] RBC (Bld) [#/Vol] 1.39 10*6/uL Low 3.80 - 5.2 0 10*6/uL [facility] WBC (Bld) [#/Vol] 11.3 10*3/uL High 3.6 - 10.7 10*3/uL [facility] COMPREHENSIVE METABOLIC PANE Fam 12-17-2024 Albumin [Mass/Vol] 1.3 g/dL Low 3.4-4.8 [facility] Comment on above: Performed By: #### L [id number] ####Job Service Consultant: PHILLY FRANCO ([phone])[facility] [place] [address] ALP [Catalytic activity/Vol] 130 U/L Normal 40-150 [facility] Comment on above: Performed By: #### L [id number] ####Job Service Consultant: PHILLY FRANCO ([phone])[facility] ([facility])[address] [place] [address] ALT [Catalytic activity/Vol] 8 U/L Normal <30 [facility] Comment on above: Performed By: #### L [id number] ####Job Service Consultant: PHILLY FRANCO ([phone])[facility] [place] [address] Anion gap [Moles/Vol] 7 mmol/L Normal 3-13 [facility] Comment on above: Performed By: #### L [id number] ####Job Service Consultant: PHILLY FRANCO ([phone])[facility] ([facility])[address] [place] [address] [place] AST [Catalytic activity/Vol] 41 U/L High <34 [facility] Comment on above: Performed By: #### L [id number] ####Job Service Consultant: PHILLY FRANCO ([phone])[facility] ([facility])[address] [place] [address] [place] Bilirubin [Mass/Vol] 0.5 mg/dL Normal <1.2 [facility] Comment on above: Performed By: #### L [id number] ####Job Service Consultant: PHILLY FRANCO ([phone])[facility] [place] [address] [place] Calcium [Mass/Vol] 7.3 mg/dL Low 8.8-10.0 [facility] Comment on above: Performed By: #### L [id number] ####Job Service Consultant: PHILLY FRANCO ([phone])[facility] [place] [address] Chloride [Moles/Vol] 95 mmol/L Low 98-107 [facility] Comment on above: Performed By: #### L [id number] ####Job Service Consultant: PHILLY FRANCO ([phone])[facility] [place] [address] [place] CO2 [Moles/Vol] 26 mmol/L Normal 23-31 [facility] Comment on above: Performed By: #### L [id number] ####Job Service Consultant: PHILLY FRANCO ([phone])[facility] [place] [address] Creatinine [Mass/Vol] 2.91 mg/dL High 0.57-1.11 [facility] Comment on above: Performed By: #### L [id number] ####Job Service Consultant: PHILLY FRANCO ([phone])[facility] ([facility])[address] [place] [address] [place] GLOMERULAR FILTRATION RATE ML/MIN/1.73 SQ M.PREDICTED 16.4 mL/min/1.73m*2 Low >60.0 [facility] Comment on above: Result Comment: Calc ulation based on the Chronic Kidney Disease Epidemiology Collaboration (CKD-EPI) equation refit without adjustment for race Performed By: #### L [id number] ####Job Service Consultant: PHILLY FRANCO ([phone])[facility] [place] [address] [place] Glucose [Mass/Vol] 110 mg/dL Normal 82-115 [facility] Comment on above: Performed By: #### L [id number] ####Job Service Consultant: PHILLY FRANCO ([phone])[facility] ([facility])[address] [place] [address] [place] Potassium [Moles/Vol] 4.0 mmol/L Normal 3.5-5.1 [facility] Comment on above: Result Comment: [facility] potassium values may be up to 0.5 mmol/L lower than serum values. Performed By: #### L [id number] ####Job Service Consultant: PHILLY FRANCO ([phone])[facility] [place] [address] Protein [Mass/Vol] 5.6 g/dL Low 6.4-8.3 [facility] Comment on above: Performed By: #### L [id number] ####Job Service Consultant: PHILLY FRANCO ([phone])[facility] ([facility])[address] [place] [address] Sodium [Moles/Vol] 128 mmol/L Low 136-145 [facility] Comment on above: Performed By: #### L [id number] ####Job Service Consultant: PHILLY FRANCO ([phone])[facility] ([facility])[address] [place] [address] Urea nitrogen [Mass/Vol] 14 mg/dL Normal 9-23 [facility] Comment on above: Performed By: #### L [id number] ####Job Service Consultant: PHILLY FRANCO ([phone])[facility] ([facility])[address] [place] [address] Coagulation index TEG Qn (Bl d)Ordered By: Juventino Lares on 12-17-2024 APTEM A10 67 mm 50 - 70 mm [facility] APTEM A20 72 mm High 50 - 70 mm [facility] Clot angle TEG (Bld) [Angle] 82 High [facility] Clot formation.extrinsic coagulation system activated Rotational TEG (Bld) [Time] 69 s 43 - 82 s [facility] Clot formation.extrinsic coagulation system activated Rotational TEG (Bld) [Time] 38 s Low 48 - 127 s [facility] Clot formation.extrinsic coagulation system activated Rotational TEG (Bld) [Time] 82 High [facility] Clot formation.extrinsic coagulation system activated Rotational TEG (Bld) [Time] 67 mm 50 - 70 mm [facility] Clot formation.extrinsic coagulation system activated Rotational TEG (Bld) [Time] 72 mm High 50 - 70 mm [facility] Clot formation.extrinsic coagulation system activated Rotational TEG (Bld) [Time] 73 mm High 52 - 70 mm [facility] Clot formation.extrinsic coagulation system activated.fibrinolysis suppressed Rotational TEG (Bld) [Time] 37 s Low 48 - 127 s [facility] Clot formation.extrinsic coagulation system activated.fibrinolysis suppressed Rotational TEG (Bld) [Time] 31 mm High 7 - 24 mm [facility] Clot formation.extrinsic coagulation system activated.fibrinolysis suppressed Rotational TEG (Bld) [Time] 30 mm [facility] Clotting time.extrinsic coagulation system activated.fibrinolysis suppressed Rotational TEG (Bld) 78 s 43 - 82 s [facility] Interpretation and review of laboratory results Abnormal [facility] Maximum clot firmness.extrinsic coagulation system activated.fibrinolysis suppressed Rotational TEG (Bld) [Length] 74 mm High 52 - 70 mm [facility] Comprehensive metabolic 1998 panelon 12-17-2024 Albumin [Mass/Vol] 1.3 g/dL Low 3.4 - 4.8 g/dL [facility] ALP [Catalytic activity/Vol] 130 U/L 40 - 150 U/L [facility] ALT [Catalytic activity/Vol] 8 U/L [facility] - [facility] U/L [facility] Anion gap [Moles/Vol] 7 mmol/L 3 - 13 mmol/L [facility] AST [Catalytic activity/Vol] 41 U/L High NINF - 34 U/L [facility] Bilirubin [Mass/Vol] 0.5 mg/dL [facility] - 1.2 mg/dL [facility] Calcium [Mass/Vol] 7.3 mg/dL Low 8.8 - 10. 0 mg/dL [facility] Chloride [Moles/Vol] 95 mmol/L Low 98 - 10 7 mmol/L [facility] CO2 [Moles/Vol] 26 mmol/L 23 - 31 mmol/L [facility] Creatinine [Mass/Vol] 2.91 mg/dL High 0.57 - 1.11 mg/dL [facility] GFR/1.73 sq M.predicted (S/P/Bld) [Vol rate/Area] 16.4 mL/min Low - PINF [facility] Glucose [Mass/Vol] 110 mg/dL 82 - 115 mg/dL [facility] Interpretation and review of laboratory results Abnormal [facility] Potassium [Moles/Vol] 4 mmol/L 3.5 - 5.1 mmol/L [facility] Protein [Mass/Vol] 5.6 g/dL Low 6.4 - 8.3 g/dL [facility] Sodium [Moles/Vol] 128 mmol/L Low 136 - 145 mmol/L [facility] Urea nitrogen [Mass/Vol] 14 mg/dL 9 - 23 mg/dL [facility] HEMOGLOBIN AND HEMATOCRIT, B LOODon 12-17-2024 Hematocrit (Bld) [Volume fraction] 27.1 % Low 35.0-47.0 [facility] Comment on above: Performed By: #### L [id number] ####Job Service Consultant: PHILLY FRANCO ([phone])[facility])[address] [place] [address] Hemoglobin (Bld) [Mass/Vol] 9.6 g/dL Low 11.7-16.0 [facility] Comment on above: Performed By: #### L [id number] ####Job Service Consultant: PHILLY FRANCO ([phone])[facility] ([facility])[address] [place] [address] Hemoglobin (Bld) [Mass/Vol]O rdered By: Adrienne Bradshaw on 12-17-2024 Hematocrit (Bld) [Volume fraction] 27.1 % Low 35.0 - 47.0 % [facility] Interpretation and review of laboratory results Abnormal [facility] LACTIC ACID WITH REFLEXon Lactate [Moles/Vol] 1.6 mmol/L Normal 0.5-2.2 [facility] Comment on above: Performed By: #### L [id number] ####Job Service Consultant: PHILLY FRANCO ([phone])[facility] ([facility])[address] [place] [address] Lactate [Moles/Vol] 2.4 mmol/L High 0.5-2.2 [facility] Comment on above: Performed By: #### L [id number] ####Job Service Consultant: PHILLY FRANCO ([phone])[facility])[address] [place] [address] Laboratory - Chemistry and C hemistry - challengeon 12-17-2024 Glucose [Mass/Vol] 96 mg/dL 70 - 100 mg/dL [facility] Lactate [Moles/Vol] 1.6 mmol/L 0.5 - 2. 2 mmol/L [facility] Lactate [Moles/Vol] 2.4 mmol/L High 0.5 - 2. 2 mmol/L [facility] Laboratory - Coagulationon 0 12-17-2024 aPTT Coag (PPP) [Time] 30.5 s 20.0 - 30.5 s [facility] INR Coag (PPP) [Relative time] 1.2 {INR} High 0.9 - 1.1 [facility] PT Coag (Bld) [Time] 13 s High 9.0 - 12.0 s [facility] Laboratory - Drug toxicology on 12-17-2024 levETIRAcetam [Mass/Vol] 11.3 ug/mL [facility] Laboratory - Hematology and Cell countsOrdered By: Adrienne Bradshaw on 12-17-2024 Hemoglobin (Bld) [Mass/Vol] 9.6 g/dL Low 11.7 - 16.0 g/dL [facility] Laboratory - Microbiology an d Antimicrobial susceptibilityon 12-17-2024 Bacteria identified Cx Nom (Bld) No growth at 5 days [facility] No Panel Informationon 12-17 [facility] Interpretation and review of laboratory results Normal [facility] Blood Expiration Date S [facility] Blood Expiration Date S [facility] Crossmatch interpretation COMP [facility] Dispense Status Transfused [facility] Product Blood Type 5100 [facility] PRODUCT CODE [id number] [facility] PRODUCT CODE [id number] [facility] PRODUCT CODE [id number] [facility] ABO O [facility] Number [id number] [facility] Number [id number]-* [facility] Number [id number] [facility] RH Positive [facility] Unit Volume 300 mL [facility] Interpretation and review of laboratory results Abnormal [facility] Interpretation and review of laboratory results Normal [facility] Interpretation and review of laboratory results Abnormal [facility] Nursing Noteon 12-17-2024 Nursing Note Normal [facility] Nursing Note Non Emergent rapid paged for stat labs per general surgery. Pt hard stick. Pt known to rapid. Labs sent. Hemoglobin 4.2. Talked with Dr. Leonardo about a possible line for patient due to the issues with getting access/blood. Normal [facility] Nursing Note Normal [facility] PROTIME AND APTTon aPTT Coag (Bld) [Time] 30.5 s Normal 20.0-30.5 [facility] Comment on above: Performed By: #### L [id number] ####Job Service Consultant: PHILLY FRANCO ([phone])[facility])[address] [place] [address] INR Coag (PPP) [Relative time] 1.2 {INR} High 0.9-1.1 [facility] Comment on above: Result Comment: Bruce mmended [...] prevent Myocardial Infarction Performed By: #### L [id number] ####Job Service Consultant: PHILLY FRANCO ([phone])[address] PT Coag (PPP) [Time] 13.0 s High 9.0-12.0 [facility] Comment on above: Performed By: #### L [id number] ####Job Service Consultant: PHILLY FRANCO ([phone])[facility])[address] [place] [address] Progress Noteon 12-17-2024 Progress Note Normal [facility] Progress Note Normal [facility] Progress Note Normal [facility] Progress Note Normal [facility] ALFREDO TRAUMA PANELon 025 APTEM A10 67 mm Normal 50-70 [facility] Comment on above: Performed By: #### L [id number] ####Job Service Consultant: PHILLY FRANCO ([phone])[facility] ([facility])[address] [place] [address] [place] APTEM A20 72 mm High 50-70 [facility] Comment on above: Performed By: #### L [id number] ####Job Service Consultant: PHILLY FRANCO ([phone])[facility] ([facility])[address] [place] [address] [place] APTEM ALPHA 82 DEGREES High 65-80 [facility] Comment on above: Performed By: #### L [id number] ####Job Service Consultant: PHILLY FRANCO ([phone])[facility] ([facility])[address] [place] [address] [place] APTEM CLOT FORMATION TIME 37 s Low 48-127 [facility] Comment on above: Performed By: #### L [id number] ####Job Service Consultant: PHILLY FRANCO ([phone])[facility] ([facility])[address] [place] [address] [place] APTEM CLOTTING TIME 78 s Normal 43-82 [facility] Comment on above: Performed By: #### L [id number] ####Job Service Consultant: PHILLY FRANCO ([phone])[facility] ([facility])[address] [place] [address] [place] APTEM MAXIMUM CLOT FIRMNESS 74 mm High 52-70 [facility] Comment on above: Performed By: #### L [id number] ####Job Service Consultant: PHILLY FRANCO ([phone])[facility] ([facility])[address] [place] [address] [place] EXTEM A10 67 mm Normal 50-70 [facility] Comment on above: Performed By: #### L [id number] ####Job Service Consultant: PHILLY FRANCO ([phone])[facility] ([facility])[address] [place] [address] [place] EXTEM A20 72 mm High 50-70 [facility] Comment on above: Performed By: #### L [id number] ####Job Service Consultant: PHILLY FRANCO ([phone])[facility] ([facility])[address] [place] [address] [place] EXTEM ALPHA 82 DEGREES High 65-80 [facility] Comment on above: Performed By: #### L [id number] ####Job Service Consultant: PHILLY FRANCO ([phone])[facility] ([facility])[address] [place] [address] [place] EXTEM CLOT FORMATION TIME 38 s Low 48-127 [facility] Comment on above: Performed By: #### L [id number] ####Job Service Consultant: PHILLY FRANCO ([phone])[facility] ([facility])[address] [place] [address] [place] EXTEM CLOTTING TIME 69 s Normal 43-82 [facility] Comment on above: Performed By: #### L [id number] ####Job Service Consultant: PHILLY FRANCO ([phone])[facility] ([facility])[address] [place] [address] EXTEM MAXIMUM CLOT FIRMNESS 73 mm High 52-70 [facility] Comment on above: Performed By: #### L [id number] ####Job Service Consultant: PHILLY FRANCO ([phone])[facility] ([facility])[address] [place] [address] FIBTEM A10 31 mm Normal [facility] Comment on above: Performed By: #### L [id number] ####Job Service Consultant: PHILLY FRANCO ([phone])[facility] ([facility])[address] [place] [address] [place] FIBTEM A20 30 mm Normal [facility] Comment on above: Performed By: #### L [id number] ####Job Service Consultant: PHILLY FRANCO ([phone])[facility] ([facility])[address] [place] [address] FIBTEM MAXIMUM CLOT FIRMNESS 31 mm High 7-24 [facility] Comment on above: Performed By: #### L [id number] ####Job Service Consultant: PHILLY FRANCO ([phone])[facility] ([facility])[address] [place] [address] CBC (HEMOGRAM)on 12-16-2024 Erythrocyte distribution width (RBC) [Ratio] 17.2 % High 11.5-15.0 [facility] Comment on above: Performed By: #### L [id number] ####Job Service Consultant: PHILLY FRANCO ([phone])[facility])[address] [place] [address] Hematocrit (Bld) [Volume fraction] 24.9 % Low 35.0-47.0 [facility] Comment on above: Performed By: #### L [id number] ####Job Service Consultant: PHILLY FRANCO ([phone])[facility])[address] [place] [address] Hemoglobin (Bld) [Mass/Vol] 8.2 g/dL Low 11.7-16.0 [facility] Comment on above: Performed By: #### L [id number] ####Job Service Consultant: PHILLY FRANCO ([phone])[facility] ([facility])[address] [place] [address] MCH (RBC) [Entitic mass] 29.7 pg Normal 26.0-34.0 [facility] Comment on above: Performed By: #### L [id number] ####Job Service Consultant: PHILLY FRANCO ([phone])[facility])[address] [place] [address] MCHC 32.9 % Normal 30.5-36.0 [facility] Comment on above: Performed By: #### L [id number] ####Job Service Consultant: PHILLY FRANCO ([phone])[facility])[address] [place] [address] MCV (RBC) [Entitic vol] 90.2 fL Normal 77.0-99.0 [facility] Comment on above: Performed By: #### L [id number] ####Job Service Consultant: PHILLY FRANCO ([phone])[facility])[address] [place] [address] Platelet mean volume (Bld) [Entitic vol] 10.6 fL Normal 9.0-12.7 [facility] Comment on above: Performed By: #### L [id number] ####Job Service Consultant: PHILLY FRANCO ([phone])[facility] ([facility])[address] [place] [address] Platelets (Bld) [#/Vol] 394 10*3/uL Normal 140-440 [facility] Comment on above: Performed By: #### L [id number] ####Job Service Consultant: PHILLY FRANCO ([phone])[facility] ([facility])[address] [place] [address] RBC (Bld) [#/Vol] 2.76 10*6/uL Low 3.80-5.20 [facility] Comment on above: Performed By: #### L [id number] ####Job Service Consultant: PHILLY FRANCO ([phone])[facility] ([facility])[address] [place] [address] WBC (Bld) [#/Vol] 10.3 10*3/uL Normal 3.6-10.7 [facility] Comment on above: Performed By: #### L [id number] ####Job Service Consultant: PHILLY FRANCO ([phone])[facility] ([facility])[address] [place] [address] CBC panel Auto (Bld)on 12-16 Erythrocyte distribution width (RBC) [Ratio] 17.2 % High 11.5 - 15.0 % [facility] Hematocrit (Bld) [Volume fraction] 24.9 % Low 35.0 - 47.0 % [facility] Hemoglobin (Bld) [Mass/Vol] 8.2 g/dL Low 11.7 - 16.0 g/dL [facility] Interpretation and review of laboratory results Abnormal [facility] MCH (RBC) [Entitic mass] 29.7 pg 26.0 - 34.0 pg [facility] MCHC (RBC) [Mass/Vol] 32.9 % 30.5 - 36.0 % [facility] MCV (RBC) [Entitic vol] 90.2 fL 77.0 - 99.0 fL [facility] Platelet mean volume (Bld) [Entitic vol] 10.6 fL 9.0 - 12.7 fL [facility] Platelets (Bld) [#/Vol] 394 10*3/uL 140 - 440 10*3/uL [facility] RBC (Bld) [#/Vol] 2.76 10*6/uL Low 3.80 - 5.2 0 10*6/uL [facility] WBC (Bld) [#/Vol] 10.3 10*3/uL 3.6 - 10.7 10*3/uL [facility] COMPREHENSIVE METABOLIC PANE Fam 12-16-2024 Albumin [Mass/Vol] 1.3 g/dL Low 3.4-4.8 [facility] Comment on above: Performed By: #### L [id number] ####Job Service Consultant: PHILLY FRANCO ([phone])[facility])[address] [place] [address] ALP [Catalytic activity/Vol] 139 U/L Normal 40-150 [facility] Comment on above: Performed By: #### L [id number] ####Job Service Consultant: PHILLY FRANCO ([phone])[address] ALT [Catalytic activity/Vol] 12 U/L Normal <30 [facility] Comment on above: Performed By: #### L [id number] ####Job Service Consultant: PHILLY FRANCO ([phone])[facility])[address] [place] [address] Anion gap [Moles/Vol] 5 mmol/L Normal 3-13 [facility] Comment on above: Performed By: #### L [id number] ####Job Service Consultant: PHILLY FRANCO ([phone])[address] AST [Catalytic activity/Vol] 45 U/L High <34 [facility] Comment on above: Performed By: #### L [id number] ####Job Service Consultant: PHILLY [phone])[facility])[address] [place] [address] Bilirubin [Mass/Vol] 0.5 mg/dL Normal <1.2 [facility] Comment on above: Performed By: #### L AB17 ####Job Service Consultant: PHILLY FRANCO ([phone])[facility])[address] [place] [address] Calcium [Mass/Vol] 7.4 mg/dL Low 8.8-10.0 [facility] Comment on above: Performed By: #### L [id number] ####Job Service Consultant: PHILLY FRANCO ([phone])[facility] ([facility])[address] [place] [address] Chloride [Moles/Vol] 98 mmol/L Normal 98-107 [facility] Comment on above: Performed By: #### L AB17 ####Job Service Consultant: PHILLY FRANCO ([phone])[facility] ([facility])[address] [place] [address] CO2 [Moles/Vol] 25 mmol/L Normal 23-31 [facility] Comment on above: Performed By: #### L [id number] ####Job Service Consultant: PHILLY FRANCO ([phone])[facility])[address] [place] [address] Creatinine [Mass/Vol] 2.66 mg/dL High 0.57-1.11 [facility] Comment on above: Performed By: #### L AB17 ####Job Service Consultant: PHILLY FRANCO ([phone])[facility])[address] [place] [address] GLOMERULAR FILTRATION RATE ML/MIN/1.73 SQ M.PREDICTED 18.3 mL/min/1.73m*2 Low >60.0 [facility] Comment on above: Result Comment: Calc ulation based on the Chronic Kidney Disease Epidemiology Collaboration (CKD-EPI) equation refit without adjustment for race Performed By: #### L AB17 ####Job Service Consultant: PHILLY FRANCO ([phone])[facility])[address] [place] [address] Glucose [Mass/Vol] 146 mg/dL High 82-115 [facility] Comment on above: Performed By: #### L AB17 ####Job Service Consultant: PHILLY FRANCO ([phone])[facility])[address] [place] [address] Potassium [Moles/Vol] 4.3 mmol/L Normal 3.5-5.1 [facility] Comment on above: Result Comment: [facility] potassium values may be up to 0.5 mmol/L lower than serum values. Performed By: #### L AB17 ####Job Service Consultant: PHILLY FRANCO ([phone])[facility] ([facility])[address] [place] [address] Protein [Mass/Vol] 5.9 g/dL Low 6.4-8.3 [facility] Comment on above: Performed By: #### L AB17 ####Job Service Consultant: PHILLY FRANCO ([phone])[facility])[address] [place] [address] Sodium [Moles/Vol] 128 mmol/L Low 136-145 [facility] Comment on above: Performed By: #### L AB17 ####Job Service Consultant: PHILLY FRANCO ([phone])[facility])[address] [place] [address] Urea nitrogen [Mass/Vol] 10 mg/dL Normal 9-23 [facility] Comment on above: Performed By: #### L AB17 ####Job Service Consultant: PHILLY FRANCO ([phone])[facility])[address] [place] [address] Albumin [Mass/Vol] 1.4 g/dL Low 3.4-4.8 [facility] Comment on above: Performed By: #### L AB17 ####Job Service Consultant: PHILLY FRANCO ([phone])[facility])[address] [place] [address] ALP [Catalytic activity/Vol] 147 U/L Normal 40-150 [facility] Comment on above: Performed By: #### L AB17 ####Job Service Consultant: PHILLY FRANCO ([phone])[facility] [place] [address] [place] ALT [Catalytic activity/Vol] 13 U/L Normal <30 [facility] Comment on above: Performed By: #### L AB17 ####Job Service Consultant: PHILLY FRANCO ([phone])[facility] ([facility])[address] [place] [address] Anion gap [Moles/Vol] 8 mmol/L Normal 3-13 [facility] Comment on above: Performed By: #### L AB17 ####Job Service Consultant: PHILLY FRANCO ([phone])[facility] ([facility])[address] [place] [address] AST [Catalytic activity/Vol] 52 U/L High <34 [facility] Comment on above: Performed By: #### L AB17 ####Job Service Consultant: PHILLY FRANCO ([phone])[facility] ([facility])[address] [place] [address] Bilirubin [Mass/Vol] 0.4 mg/dL Normal <1.2 [facility] Comment on above: Performed By: #### L AB17 ####Job Service Consultant: PHILLY FRANCO ([phone])[facility] ([facility])[address] [place] [address] Calcium [Mass/Vol] 7.5 mg/dL Low 8.8-10.0 [facility] Comment on above: Performed By: #### L AB17 ####Job Service Consultant: PHILLY FRANCO ([phone])[facility] ([facility])[address] [place] [address] [place] Chloride [Moles/Vol] 99 mmol/L Normal 98-107 [facility] Comment on above: Performed By: #### L AB17 ####Job Service Consultant: PHILLY FRANCO ([phone])[facility] ([facility])[address] [place] [address] [place] CO2 [Moles/Vol] 25 mmol/L Normal 23-31 [facility] Comment on above: Performed By: #### L AB17 ####Job Service Consultant: PHILLY FRANCO ([phone])[facility])[address] [place] [address] Creatinine [Mass/Vol] 1.99 mg/dL High 0.57-1.11 [facility] Comment on above: Performed By: #### L AB17 ####Job Service Consultant: PHILLY FRANCO ([phone])[facility])[address] [place] [address] GLOMERULAR FILTRATION RATE ML/MIN/1.73 SQ M.PREDICTED 25.9 mL/min/1.73m*2 Low >60.0 [facility] Comment on above: Result Comment: Calc ulation based on the Chronic Kidney Disease Epidemiology Collaboration (CKD-EPI) equation refit without adjustment for race Performed By: #### L AB17 ####Job Service Consultant: PHILLY FRANCO ([phone])[facility])[address] [place] [address] Glucose [Mass/Vol] 98 mg/dL Normal 82-115 [facility] Comment on above: Performed By: #### L AB17 ####Job Service Consultant: PHILLY FRANCO ([phone])[facility])[address] [place] [address] Potassium [Moles/Vol] 4.0 mmol/L Normal 3.5-5.1 [facility] Comment on above: Result Comment: [facility] potassium values may be up to 0.5 mmol/L lower than serum values. Performed By: #### L AB17 ####Job Service Consultant: PHILLY FRANCO ([phone])[facility] ([facility])[address] [place] [address] Protein [Mass/Vol] 6.4 g/dL Normal 6.4-8.3 [facility] Comment on above: Performed By: #### L AB17 ####Job Service Consultant: PHILLY FRANCO ([phone])[facility])[address] [place] [address] [place] Sodium [Moles/Vol] 132 mmol/L Low 136-145 [facility] Comment on above: Performed By: #### L AB17 ####Job Service Consultant: PHILLY FRANCO ([phone])[facility] ([facility])[address] [place] [address] Urea nitrogen [Mass/Vol] 7 mg/dL Low 9-23 [facility] Comment on above: Performed By: #### L [id number] ####Job Service Consultant: PHILLY FRANCO ([phone])[facility] ([facility])[address] [place] [address] [place] ABDOMEN PELVIS WO IV CONT RASTon 12-16-2024 CT ABDOMEN PELVIS WO IV CONTRAST Normal [facility] CT Abdomen and Pelvis WO con traston 12-16-2024 [facility] Radiology Study observation (narrative) [facility] CT Abdomen and Pelvis WO con trastOrdered By: Balta Ruvalcaba on 12-16-2024 [facility] Work Phone: Comprehensive metabolic 1998 panelon 12-16-2024 Albumin [Mass/Vol] 1.3 g/dL Low 3.4 - 4.8 g/dL [facility] ALP [Catalytic activity/Vol] 139 U/L 40 - 150 U/L [facility] ALT [Catalytic activity/Vol] 12 U/L [facility] - 30 U/L [facility] Anion gap [Moles/Vol] 5 mmol/L 3 - 13 mmol/L [facility] AST [Catalytic activity/Vol] 45 U/L High NINF - 34 U/L [facility] Bilirubin [Mass/Vol] 0.5 mg/dL NINF - 1.2 mg/dL [facility] Calcium [Mass/Vol] 7.4 mg/dL Low 8.8 - 10. 0 mg/dL [facility] Chloride [Moles/Vol] 98 mmol/L 98 - 10 7 mmol/L [facility] CO2 [Moles/Vol] 25 mmol/L 23 - 31 mmol/L [facility] Creatinine [Mass/Vol] 2.66 mg/dL High 0.57 - 1.11 mg/dL [facility] GFR/1.73 sq M.predicted (S/P/Bld) [Vol rate/Area] 18.3 mL/min Low - PINF [facility] Glucose [Mass/Vol] 146 mg/dL High 82 - 115 mg/dL [facility] Interpretation and review of laboratory results Abnormal [facility] Potassium [Moles/Vol] 4.3 mmol/L 3.5 - 5.1 mmol/L [facility] Protein [Mass/Vol] 5.9 g/dL Low 6.4 - 8.3 g/dL [facility] Sodium [Moles/Vol] 128 mmol/L Low 136 - 145 mmol/L [facility] Urea nitrogen [Mass/Vol] 10 mg/dL 9 - 23 mg/dL [facility] Albumin [Mass/Vol] 1.4 g/dL Low 3.4 - 4.8 g/dL [facility] ALP [Catalytic activity/Vol] 147 U/L 40 - 150 U/L [facility] ALT [Catalytic activity/Vol] 13 U/L NINF - 30 U/L [facility] Anion gap [Moles/Vol] 8 mmol/L 3 - 13 mmol/L [facility] AST [Catalytic activity/Vol] 52 U/L High NINF - 34 U/L [facility] Bilirubin [Mass/Vol] 0.4 mg/dL NINF - 1.2 mg/dL [facility] Calcium [Mass/Vol] 7.5 mg/dL Low 8.8 - 10. 0 mg/dL [facility] Chloride [Moles/Vol] 99 mmol/L 98 - 10 7 mmol/L [facility] CO2 [Moles/Vol] 25 mmol/L 23 - 31 mmol/L [facility] Creatinine [Mass/Vol] 1.99 mg/dL High 0.57 - 1.11 mg/dL [facility] GFR/1.73 sq M.predicted (S/P/Bld) [Vol rate/Area] 25.9 mL/min Low - PINF [facility] Glucose [Mass/Vol] 98 mg/dL 82 - 115 mg/dL [facility] Interpretation and review of laboratory results Abnormal [facility] Potassium [Moles/Vol] 4 mmol/L 3.5 - 5.1 mmol/L [facility] Protein [Mass/Vol] 6.4 g/dL 6.4 - 8.3 g/dL [facility] Sodium [Moles/Vol] 132 mmol/L Low 136 - 145 mmol/L [facility] Urea nitrogen [Mass/Vol] 7 mg/dL Low 9 - 23 mg/dL [facility] Consulton 12-16-2024 Consult Normal [facility] LACTIC ACID WITH REFLEXon Lactate [Moles/Vol] 2.6 mmol/L High 0.5-2.2 [facility] Comment on above: Performed By: #### L [id number] ####Job Service Consultant: PHILLY FRANCO ([phone])[facility] [place] [address] Laboratory - Chemistry and C hemistry - challengeon 12-16-2024 Lactate [Moles/Vol] 2.6 mmol/L High 0.5 - 2. 2 mmol/L [facility] Laboratory - Drug toxicology on 12-16-2024 Vancomycin [Mass/Vol] 13.7 ug/mL [facility] No Panel Informationon 12-16 Interpretation and review of laboratory results Abnormal [facility] Nursing Noteon 12-16-2024 Nursing Note Normal [facility] Nursing Note Crushed patients med s and put in pudding. Patient only took some of meds, and refused the rest. Normal [facility] Progress Noteon 12-16-2024 Progress Note Normal [facility] Progress Note Normal [facility] Progress Note Normal [facility] VANCOMYCIN, RANDOMon 025 VANCOMYCIN 13.7 ug/mL Normal [facility] Comment on above: Result Comment: SHAWNE R COMMENTS:Toxicity is seen at concentrations >80-100 ug/mLTherapeutic (Peak) range: 20-40Therapeutic (Trough) range: 5-10 Performed By: #### L AB40 ####Job Service Consultant: PHILLY FRANCO ([phone])[facility] [place] [address] [id number] 12-15-2024 [id number] Normal [facility] [id number] 30 Day Readmission. Hospital Readmission Questionnaire not required due to patient readmitted from skilled or rehabilitation facility. [facility] CBC (HEMOGRAM)on 12-15-2024 Erythrocyte distribution width (RBC) [Ratio] 17.2 % High 11.5-15.0 [facility] Comment on above: Performed By: #### L [id number] ####Job Service Consultant: PHILLY FRANCO ([phone])[facility])[address] [place] [address] Hematocrit (Bld) [Volume fraction] 25.6 % Low 35.0-47.0 [facility] Comment on above: Performed By: #### L [id number] ####Job Service Consultant: PHILLY FRANCO ([phone])[facility])[address] [place] [address] Hemoglobin (Bld) [Mass/Vol] 8.3 g/dL Low 11.7-16.0 [facility] Comment on above: Performed By: #### L [id number] ####Job Service Consultant: PHILLY FRANCO ([phone])[facility] ([facility])[address] [place] [address] MCH (RBC) [Entitic mass] 30.0 pg Normal 26.0-34.0 [facility] Comment on above: Performed By: #### L [id number] ####Job Service Consultant: PHILLY FRANCO ([phone])[facility])[address] [place] [address] MCHC 32.4 % Normal 30.5-36.0 [facility] Comment on above: Performed By: #### L [id number] ####Job Service Consultant: PHILLY FRANCO ([phone])[facility])[address] [place] [address] MCV (RBC) [Entitic vol] 92.4 fL Normal 77.0-99.[address] [facility] Comment on above: Performed By: #### L [id number] ####Job Service Consultant: PHILLY FRANCO ([phone])[facility])[address] [place] [address] Platelet mean volume (Bld) [Entitic vol] 10.5 fL Normal 9.0-12.7 [facility] Comment on above: Performed By: #### L [id number] ####Job Service Consultant: PHILLY FRANCO ([phone])[facility])[address] [place] [address] Platelets (Bld) [#/Vol] 363 10*3/uL Normal 140-440 [facility] Comment on above: Performed By: #### L [id number] ####Job Service Consultant: PHILLY FRANCO ([phone])[facility] ([facility])[address] [place] [address] RBC (Bld) [#/Vol] 2.77 10*6/uL Low 3.80-5.20 [facility] Comment on above: Performed By: #### L [id number] ####Job Service Consultant: PHILLY FRANCO ([phone])[facility])[address] [place] [address] WBC (Bld) [#/Vol] 12.0 10*3/uL High 3.6-10.7 [facility] Comment on above: Performed By: #### L [id number] ####Job Service Consultant: PHILLY FRANCO ([phone])[facility])[address] [place] [address] CBC panel Auto (Bld)on 12-15 Erythrocyte distribution width (RBC) [Ratio] 17.2 % High 11.5 - 15.0 % [facility] Hematocrit (Bld) [Volume fraction] 25.6 % Low 35.0 - 47.0 % [facility] Hemoglobin (Bld) [Mass/Vol] 8.3 g/dL Low 11.7 - 16.0 g/dL [facility] Interpretation and review of laboratory results Abnormal [facility] MCH (RBC) [Entitic mass] 30 pg 26.0 - 34.0 pg [facility] MCHC (RBC) [Mass/Vol] 32.4 % 30.5 - 36.0 % [facility] MCV (RBC) [Entitic vol] 92.4 fL 77.0 - 99.0 fL [facility] Platelet mean volume (Bld) [Entitic vol] 10.5 fL 9.0 - 12.7 fL [facility] Platelets (Bld) [#/Vol] 363 10*3/uL 140 - 440 10*3/uL [facility] RBC (Bld) [#/Vol] 2.77 10*6/uL Low 3.80 - 5.2 0 10*6/uL [facility] WBC (Bld) [#/Vol] 12 10*3/uL High 3.6 - 10.7 10*3/uL [facility] COMPREHENSIVE METABOLIC PANE Fam 12-15-2024 Albumin [Mass/Vol] 1.5 g/dL Low 3.4-4.8 [facility] Comment on above: Performed By: #### L AB17 ####Job Service Consultant: PHILLY FRANCO ([phone])[facility] ([facility])[address] [place] [address] ALP [Catalytic activity/Vol] 146 U/L Normal 40-150 [facility] Comment on above: Performed By: #### L AB17 ####Job Service Consultant: PHILLY FRANCO ([phone])[facility] ([facility])[address] [place] [address] ALT [Catalytic activity/Vol] 14 U/L Normal <30 [facility] Comment on above: Performed By: #### L AB17 ####Job Service Consultant: PHILLY FRANCO ([phone])[facility] ([facility])[address] [place] [address] Anion gap [Moles/Vol] 9 mmol/L Normal 3-13 [facility] Comment on above: Performed By: #### L AB17 ####Job Service Consultant: PHILLY FRANCO ([phone])[facility] ([facility])[address] [place] [address] AST [Catalytic activity/Vol] 53 U/L High <34 [facility] Comment on above: Performed By: #### L AB17 ####Job Service Consultant: PHILLY FRANCO ([phone])[facility] ([facility])[address] [place] [address] Bilirubin [Mass/Vol] 0.4 mg/dL Normal <1.2 [facility] Comment on above: Performed By: #### L AB17 ####Job Service Consultant: PHILLY FRANCO ([phone])[facility] ([facility])[address] [place] [address] Calcium [Mass/Vol] 7.8 mg/dL Low 8.8-10.0 [facility] Comment on above: Performed By: #### L AB17 ####Job Service Consultant: PHILLY FRANCO ([phone])[facility] ([facility])[address] [place] [address] Chloride [Moles/Vol] 101 mmol/L Normal 98-107 [facility] Comment on above: Performed By: #### L AB17 ####Job Service Consultant: PHILLY FRANCO ([phone])[facility] ([facility])[address] [place] [address] CO2 [Moles/Vol] 24 mmol/L Normal 23-31 [facility] Comment on above: Performed By: #### L AB17 ####Job Service Consultant: PHILLY FRANCO ([phone])[facility] ([facility])[address] [place] [address] Creatinine [Mass/Vol] 2.80 mg/dL High 0.57-1.11 [facility] Comment on above: Performed By: #### L AB17 ####Job Service Consultant: PHILLY FRANCO ([phone])[facility] ([facility])[address] [place] [address] [place] GLOMERULAR FILTRATION RATE ML/MIN/1.73 SQ M.PREDICTED 17.2 mL/min/1.73m*2 Low >60.0 [facility] Comment on above: Result Comment: Calc ulation based on the Chronic Kidney Disease Epidemiology Collaboration (CKD-EPI) equation refit without adjustment for race Performed By: #### L AB17 ####Job Service Consultant: PHILLY FRANCO ([phone])[facility] ([facility])[address] [place] [address] Glucose [Mass/Vol] 65 mg/dL Low 82-115 [facility] Comment on above: Performed By: #### L AB17 ####Job Service Consultant: PHILLY FRANCO ([phone])[facility])[address] [place] [address] Potassium [Moles/Vol] 4.4 mmol/L Normal 3.5-5.1 [facility] Comment on above: Result Comment: [facility] potassium values may be up to 0.5 mmol/L lower than serum values. Performed By: #### L AB17 ####Job Service Consultant: PHILLY FRANCO ([phone])[facility] ([facility])[address] [place] [address] Protein [Mass/Vol] 6.5 g/dL Normal 6.4-8.3 [facility] Comment on above: Performed By: #### L AB17 ####Job Service Consultant: PHILLY FRANCO ([phone])[facility])[address] [place] [address] Sodium [Moles/Vol] 134 mmol/L Low 136-145 [facility] Comment on above: Performed By: #### L AB17 ####Job Service Consultant: PHILLY FRANCO ([phone])[facility])[address] [place] [address] Urea nitrogen [Mass/Vol] 12 mg/dL Normal 9-23 [facility] Comment on above: Performed By: #### L AB17 ####Job Service Consultant: PHILLY FRANCO ([phone])[facility])[address] [place] [address] Comprehensive metabolic 1998 panelOrdered By: Feliberto Avina on 12-15-2024 Albumin [Mass/Vol] 1.5 g/dL Low 3.4 - 4.8 g/dL [facility] ALP [Catalytic activity/Vol] 146 U/L 40 - 150 U/L [facility] ALT [Catalytic activity/Vol] 14 U/L NINF - 30 U/L [facility] Anion gap [Moles/Vol] 9 mmol/L 3 - 13 mmol/L [facility] AST [Catalytic activity/Vol] 53 U/L High NINF - 34 U/L [facility] Bilirubin [Mass/Vol] 0.4 mg/dL NINF - 1.2 mg/dL [facility] Calcium [Mass/Vol] 7.8 mg/dL Low 8.8 - 10. 0 mg/dL [facility] Chloride [Moles/Vol] 101 mmol/L 98 - 10 7 mmol/L [facility] CO2 [Moles/Vol] 24 mmol/L 23 - 31 mmol/L [facility] Creatinine [Mass/Vol] 2.8 mg/dL High 0.57 - 1.11 mg/dL [facility] GFR/1.73 sq M.predicted (S/P/Bld) [Vol rate/Area] 17.2 mL/min Low - PINF [facility] Glucose [Mass/Vol] 65 mg/dL Low 82 - 115 mg/dL [facility] Interpretation and review of laboratory results Abnormal [facility] Potassium [Moles/Vol] 4.4 mmol/L 3.5 - 5.1 mmol/L [facility] Protein [Mass/Vol] 6.5 g/dL 6.4 - 8.3 g/dL [facility] Sodium [Moles/Vol] 134 mmol/L Low 136 - 145 mmol/L [facility] Urea nitrogen [Mass/Vol] 12 mg/dL 9 - 23 mg/dL [facility] LEVETIRACETAM LEVEL (BKR QUE [facility])on 12-15-2024 QUEST LEVETIRACETAM, IMMUNOASSAY 11.3 mcg/mL Normal 6.0-46.0 [facility] Comment on above: Result Comment: Briv aracetam (Briviact(R), Rikelta(R)) exhibitssignificant cross-reactivity in the Levetiracetam(Keppra(R), Spritam(R)) immunoassay. If Brivaracetamhas been prescribed, order test code [id number] by LCMSMS.Test Performed by [employer] [facility],[address] [place] [address] [id number] Orourke M.D., Ph.D., Director of [phone], CLIA [id number] Performed By: #### L [id number] ####[employer])[address] [place] [address] [facility] Laboratory - Chemistry and C hemistry - challengeon 12-15-2024 Glucose [Mass/Vol] 104 mg/dL High 70 - 100 mg/dL [facility] Glucose [Mass/Vol] 69 mg/dL Low 70 - 100 mg/dL [facility] Laboratory - Drug toxicology on 12-15-2024 Vancomycin [Mass/Vol] 19 ug/mL [facility] No Panel Informationon 12-15 Interpretation and review of laboratory results Abnormal [facility] Interpretation and review of laboratory results Abnormal [facility] Nursing Noteon 12-15-2024 Nursing Note Normal [facility] Progress Noteon 12-15-2024 Progress Note Normal [facility] Progress Note Normal [facility] Progress Note Normal [facility] Progress Note Normal [facility] Progress Note Normal [facility] VANCOMYCIN, RANDOMon 025 VANCOMYCIN 19.0 ug/mL Normal [facility] Comment on above: Result Comment: GUERO Amanda COMMENTS:Obtain a vancomycin level 4 hours after the END of hemodialysis.Toxicity is seen at concentrations >80-100 ug/mLTherapeutic (Peak) range: 20-40Therapeutic (Trough) range: 5-10 Performed By: #### L AB40 ####Job Service Consultant: PHILLY FRANCO ([phone])[facility] ([facility])[address] [place] [address] [id number] 12-14-2024 [id number] Normal [facility] AMMONIAon 12-14-2024 Ammonia (P) [Moles/Vol] 26 umol/L Normal 18-[address] [facility] Comment on above: Performed By: #### L [id number] ####Job Service Consultant: PHILLY FRANCO ([phone])[facility] ([facility])[address] [place] [address] BLOOD TYPE AND SCREEN GELon 12-14-2024 ABO GROUPING O Normal [facility] Comment on above: Performed By: #### L [id number] ####Job Service Consultant: PHILLY FRANCO ([phone])[facility] ([facility])[address] [place] [address] RH TYPE IN BLOOD Positive Normal [facility] Comment on above: Performed By: #### L [id number] ####Job Service Consultant: PHILLY FRANCO ([phone])[facility] ([facility])[address] [place] [address] Blood type and Crossmatch pa kojo (Bld)on 12-14-2024 ABO group Nom (Bld) O [facility] Blood group antibody screen GEL Ql Negative [facility] D Ag Ql (RBC) Positive [facility] CBC (HEMOGRAM)on 12-14-2024 HEMATOCRIT Normal 35.0-47.0 [facility] Comment on above: Result Comment: Disr egard previously reported results.Corrected result: Previously reported as 20.8 % (reference range: 35.0-47.0 %) on 12/14/2024 at 0147 EDT. Performed By: #### L [id number] ####Job Service Consultant: PHILLY FRANCO ([phone])[address] HEMOGLOBIN Normal 11.7-16.0 [facility] Comment on above: Result Comment: Disr egard previously reported results.Corrected result: Previously reported as 6.5 g/dL (reference range: 11.7-16.0 g/dL) on 12/14/2024 at 0147 EDT. Performed By: #### L [id number] ####Job Service Consultant: PHILLY FRANCO ([phone])[facility] ([facility])[address] [place] [address] MCH Normal 26.0-34.0 [facility] Comment on above: Result Comment: Disr egard previously reported results.Corrected result: Previously reported as 29.4 pg (reference range: 26.0-34.0 pg) on 12/14/2024 at 0147 EDT. Performed By: #### L [id number] ####Job Service Consultant: PHILLY FRANCO ([phone])[facility] ([facility])[address] [place] [address] MCHC Normal 30.5-36.0 [facility] Comment on above: Result Comment: Disr egard previously reported results.Corrected result: Previously reported as 31.3 % (reference range: 30.5-36.0 %) on 12/14/2024 at 0147 EDT. Performed By: #### L [id number] ####Job Service Consultant: PHILLY FRANCO ([phone])[address] MCV Normal 77.0-99.0 [facility] Comment on above: Result Comment: Disr egard previously reported results.Corrected result: Previously reported as 94.1 fL (reference range: 77.0-99.0 fL) on 12/14/2024 at 0147 EDT. Performed By: #### L [id number] ####Job Service Consultant: PHILLY FRANCO ([phone])[address] MPV Normal 9.0-12.7 [facility] Comment on above: Result Comment: Disr egard previously reported results.Corrected result: Previously reported as 10.6 fL (reference range: 9.0-12.7 fL) on 12/14/2024 at 0147 EDT.ORDER COMMENTS:Disregard previously reported results.Specimen contaminated with iv fluid Performed By: #### L [id number] ####Job Service Consultant: PHILLY FRANCO ([phone])[address] PLATELET COUNT Normal 140-440 [facility] Comment on above: Result Comment: Disr egard previously reported results.Corrected result: Previously reported as 274 10*3/uL (reference range: 140-440 10*3/uL) on 12/14/2024 at 0147 EDT. Performed By: #### L [id number] ####Job Service Consultant: PHILLY FRANCO ([phone])[facility])[address] [place] [address] RBC Normal 3.80-5.20 [facility] Comment on above: Result Comment: Disr egard previously reported results.Corrected result: Previously reported as 2.21 10*6/uL (reference range: 3.80-5.20 10*6/uL) on 12/14/2024 at 0147 EDT. Performed By: #### L [id number] ####Job Service Consultant: PHILLY FRANCO ([phone])[facility])[address] [place] [address] RDW Normal 11.5-15.0 [facility] Comment on above: Result Comment: Brigid hernandez previously reported results.Corrected result: Previously reported as 17.2 % (reference range: 11.5-15.0 %) on 12/14/2024 at 0147 EDT. Performed By: #### L [id number] ####Job Service Consultant: PHILLY FRANCO ([phone])[facility] ([facility])[address] [place] [address] WBC Normal 3.6-10.7 [facility] Comment on above: Result Comment: Brigid hernandez previously reported results.Corrected result: Previously reported as 11.9 10*3/uL (reference range: 3.6-10.7 10*3/uL) on 12/14/2024 at 0147 EDT. Performed By: #### L [id number] ####Job Service Consultant: PHILLY FRANCO ([phone])[facility] ([facility])[address] [place] [address] CBC W Auto Differential pane l (Bld)Ordered By: Alison Jain on 12-14-2024 Basophils (Bld) [#/Vol] 0.1 10*3/uL 0.0 - 0.2 10*3/uL [facility] Basophils/100 WBC (Bld) 0.8 % 0.0 - 2.0 % [employer] Eosinophils (Bld) [#/Vol] 0.4 10*3/uL 0.0 - 0.5 10*3/uL [facility] Eosinophils/100 WBC (Bld) 3.3 % 0.0 - 6.0 % [facility] Erythrocyte distribution width (RBC) [Ratio] 17.2 % High 11.5 - 15.0 % [facility] [employer] Hematocrit (Bld) [Volume fraction] 23.6 % Low 35.0 - 47.0 % [facility] [employer] Hemoglobin (Bld) [Mass/Vol] 7.5 g/dL Low 11.7 - 16.0 g/dL [facility] Immature granulocytes (Bld) [#/Vol] 0.1 10*3/uL High NINF - 0.1 10*3/uL [facility] Immature granulocytes/100 WBC (Bld) 0.4 % 0.0 - 2.0 % [facility] Interpretation and review of laboratory results Abnormal [facility] Lymphocytes (Bld) [#/Vol] 1.2 10*3/uL 1.0 - 4.3 10*3/uL [facility] Lymphocytes/100 WBC (Bld) 9 % Low 15.0 - 45.0 % [facility] MCH (RBC) [Entitic mass] 29.3 pg 26.0 - 34.0 pg [facility] MCHC (RBC) [Mass/Vol] 31.8 % 30.5 - 36.0 % [facility] MCV (RBC) [Entitic vol] 92.2 fL 77.0 - 99.0 fL [facility] [employer] Monocytes (Bld) [#/Vol] 1 10*3/uL High 0.0 - 0.9 10*3/uL [facility] Monocytes/100 WBC (Bld) 7.6 % 5.0 - 13.0 % [facility] Neutrophils (Bld) [#/Vol] 10.4 10*3/uL High 1.8 - 7.5 10*3/uL [facility] Neutrophils/100 WBC (Bld) 78.9 % 38.0 - 82.0 % [facility] Nucleated RBC/100 WBC (Bld) [Ratio] 0 % [facility] Platelet mean volume (Bld) [Entitic vol] 10.6 fL 9.0 - 12.7 fL [facility] Platelets (Bld) [#/Vol] 305 10*3/uL 140 - 440 10*3/uL [facility] RBC (Bld) [#/Vol] 2.56 10*6/uL Low 3.80 - 5.2 0 10*6/uL [facility] WBC (Bld) [#/Vol] 13.1 10*3/uL High 3.6 - 10.7 10*3/uL [facility] CBC WITH AUTO DIFFERENTIALon 12-14-2024 Basophils (Bld) [#/Vol] 0.1 10*3/uL Normal 0.0-0.2 [facility] Comment on above: Performed By: #### L [id number] ####Job Service Consultant: PHILLY FRANCO ([phone])[facility])[address] [place] [address] Basophils/100 WBC (Bld) 0.8 % Normal 0.0-2.0 [facility] Comment on above: Performed By: #### L [id number] ####Job Service Consultant: PHILLY FRANCO ([phone])[facility])[address] [place] [address] Eosinophils (Bld) [#/Vol] 0.4 10*3/uL Normal 0.0-0.5 [facility] Comment on above: Performed By: #### L [id number] ####Job Service Consultant: PHILLY FRANCO ([phone])[facility])[address] [place] [address] Eosinophils/100 WBC (Bld) 3.3 % Normal 0.0-6.0 [facility] Comment on above: Performed By: #### L [id number] ####Job Service Consultant: PHILLY FRANCO ([phone])[facility])[address] [place] [address] Erythrocyte distribution width (RBC) [Ratio] 17.2 % High 11.5-15.0 [facility] Comment on above: Performed By: #### L [id number] ####Job Service Consultant: PHILLY FRANCO ([phone])[facility])[address] [place] [address] Hematocrit (Bld) [Volume fraction] 23.6 % Low 35.0-47.0 [facility] Comment on above: Performed By: #### L [id number] ####Job Service Consultant: PHILLY FRANCO ([phone])[facility])[address] [place] [address] Hemoglobin (Bld) [Mass/Vol] 7.5 g/dL Low 11.7-16.0 [facility] Comment on above: Performed By: #### L [id number] ####Job Service Consultant: PHILLY FRANCO ([phone])[facility])[address] [place] [address] IMMATURE GRANS % 0.4 % Normal 0.0-2.0 [facility] Comment on above: Performed By: #### L [id number] ####Job Service Consultant: PHILLY FRANCO ([phone])[facility])[address] [place] [address] IMMATURE GRANS ABSOLUTE 0.1 10*3/uL High <0.1 [facility] Comment on above: Performed By: #### L [id number] ####Job Service Consultant: PHILLY FRANCO ([phone])[address] Lymphocytes (Bld) [#/Vol] 1.2 10*3/uL Normal 1.0-4.3 [facility] Comment on above: Performed By: #### L [id number] ####Job Service Consultant: PHILLY FRANCO ([phone])[address] Lymphocytes/100 WBC (Bld) 9.0 % Low 15.0-45.0 [facility] Comment on above: Performed By: #### L [id number] ####Job Service Consultant: PHILLY FRANCO ([id number])[address] MCH (RBC) [Entitic mass] 29.3 pg Normal 26.0-34.0 [facility] Comment on above: Performed By: #### L [id number] ####Job Service Consultant: PHILLY FRANCO ([phone])[address] MCHC 31.8 % Normal 30.5-36.0 [facility] Comment on above: Performed By: #### L [id number] ####Job Service Consultant: PHILLY FRANCO ([phone])[facility] ([facility])[address] [place] [address] MCV (RBC) [Entitic vol] 92.2 fL Normal 77.0-99.[address] [facility] Comment on above: Performed By: #### L [id number] ####Job Service Consultant: PHILLY FRANCO ([phone])[facility])[address] [place] [address] Monocytes (Bld) [#/Vol] 1.0 10*3/uL High 0.0-0.9 [facility] Comment on above: Performed By: #### L [id number] ####Job Service Consultant: PHILLY FRANCO ([phone])[facility])[address] [place] [address] Monocytes/100 WBC (Bld) 7.6 % Normal 5.0-13.[address] [facility] Comment on above: Performed By: #### L [id number] ####Job Service Consultant: PHILLY FRANCO ([phone])[facility] ([facility])[address] [place] [address] NEUTROPHILS ABSOLUTE 10.4 10*3/uL High 1.8-7.5 [facility] Comment on above: Performed By: #### L [id number] ####Job Service Consultant: PHILLY FRANCO ([phone])[facility])[address] [place] [address] Neutrophils/100 WBC (Bld) 78.9 % Normal 38.0-82.0 [facility] Comment on above: Performed By: #### L [id number] ####Job Service Consultant: PHILLY FRANCO ([phone])[facility])[address] [place] [address] NRBC 0.0 /100 WBCs Normal 0.0-2.0 [facility] Comment on above: Performed By: #### L [id number] ####Job Service Consultant: PHILLY FRANCO ([phone])[facility])[address] [place] [address] [place] Platelet mean volume (Bld) [Entitic vol] 10.6 fL Normal 9.0-12.7 [facility] Comment on above: Performed By: #### L [id number] ####Job Service Consultant: PHILLY FRANCO ([phone])[facility] ([facility])[address] [place] [address] [place] Platelets (Bld) [#/Vol] 305 10*3/uL Normal 140-440 [facility] Comment on above: Performed By: #### L [id number] ####Job Service Consultant: PHILLY FRANCO ([phone])[facility] ([facility])[address] [place] [address] RBC (Bld) [#/Vol] 2.56 10*6/uL Low 3.80-5.20 [facility] Comment on above: Performed By: #### L [id number] ####Job Service Consultant: PHILLY FRANCO ([phone])[facility] ([facility])[address] [place] [address] WBC (Bld) [#/Vol] 13.1 10*3/uL High 3.6-10.7 [facility] Comment on above: Performed By: #### L [id number] ####Job Service Consultant: PHILLY FRANCO ([phone])[facility] ([facility])[address] [place] [address] CBC panel Auto (Bld)Ordered By: Beatriz Morales on 12-14-2024 Erythrocyte distribution width (RBC) [Ratio] [facility] Hematocrit (Bld) [Volume fraction] [facility] Hemoglobin (Bld) [Mass/Vol] [facility] MCH (RBC) [Entitic mass] [facility] MCHC (RBC) [Mass/Vol] [facility] MCV (RBC) [Entitic vol] S [facility] Platelet mean volume (Bld) [Entitic vol] [facility] Platelets (Bld) [#/Vol] S [facility] RBC (Bld) [#/Vol] [facility] WBC (Bld) [#/Vol] [facility] COMPREHENSIVE METABOLIC PANE Fam 12-14-2024 Albumin [Mass/Vol] 1.4 g/dL Low 3.4-4.8 [facility] Comment on above: Performed By: #### L ABAntonio, LAB17 ####Job Service Consultant: PHILLY FRANCO ([phone])[facility] ([facility])[address] [place] [address] ALP [Catalytic activity/Vol] 131 U/L Normal 40-150 [facility] Comment on above: Performed By: #### L ABAntonio, LAB17 ####Job Service Consultant: PHILLY FRANCO ([phone])[facility] ([facility])[address] [place] [address] ALT [Catalytic activity/Vol] 13 U/L Normal <30 [facility] Comment on above: Performed By: #### L ABAntonio, LAB17 ####Job Service Consultant: PHILLY FRANCO ([phone])[facility] ([facility])[address] [place] [address] Anion gap [Moles/Vol] 9 mmol/L Normal 3-13 [facility] Comment on above: Performed By: #### L ABAntonio, LAB17 ####Job Service Consultant: PHILLY FRANCO ([phone])[facility] ([facility])[address] [place] [address] AST [Catalytic activity/Vol] 50 U/L High <34 [facility] Comment on above: Performed By: #### L ABAntonio, LAB17 ####Job Service Consultant: PHILLY FRANCO ([phone])[facility])[address] [place] [address] Bilirubin [Mass/Vol] 0.4 mg/dL Normal <1.2 [facility] Comment on above: Performed By: #### L ABAntonio, LAB17 ####Job Service Consultant: PHILLY FRANCO ([phone])[facility])[address] [place] [address] Calcium [Mass/Vol] 7.5 mg/dL Low 8.8-10.0 [facility] Comment on above: Performed By: #### L AB113, LAB17 ####Job Service Consultant: PHILLY FRANCO ([phone])[facility])[address] [place] [address] Chloride [Moles/Vol] 96 mmol/L Low 98-107 [facility] Comment on above: Performed By: #### L AB113, LAB17 ####Job Service Consultant: PHILLY FRANCO ([phone])[facility])[address] [place] [address] CO2 [Moles/Vol] 25 mmol/L Normal 23-31 [facility] Comment on above: Performed By: #### L AB113, LAB17 ####Job Service Consultant: PHILLY FRANCO ([phone])[facility])[address] [place] [address] Creatinine [Mass/Vol] 4.37 mg/dL High 0.57-1.11 [facility] Comment on above: Performed By: #### L ABAntonio, LAB17 ####Job Service Consultant: PHILLY FRANCO ([phone])[facility])[address] [place] [address] GLOMERULAR FILTRATION RATE ML/MIN/1.73 SQ M.PREDICTED 10.1 mL/min/1.73m*2 Low >60.0 [facility] Comment on above: Result Comment: Calc ulation based on the Chronic Kidney Disease Epidemiology Collaboration (CKD-EPI) equation refit without adjustment for race Performed By: #### L ABAntonio, LAB17 ####Job Service Consultant: PHILLY FRANCO ([phone])[facility])[address] [place] [address] Glucose [Mass/Vol] 95 mg/dL Normal 82-115 [facility] Comment on above: Performed By: #### L AB113, LAB17 ####Job Service Consultant: PHILLY FRANCO ([phone])[facility])[address] [place] [address] Potassium [Moles/Vol] 3.7 mmol/L Normal 3.5-5.1 [facility] Comment on above: Result Comment: [facility] potassium values may be up to 0.5 mmol/L lower than serum values. Performed By: #### L AB113, LAB17 ####Job Service Consultant: PHILLY FRANCO ([phone])[facility] ([facility])[address] [place] [address] Protein [Mass/Vol] 6.2 g/dL Low 6.4-8.3 [facility] Comment on above: Performed By: #### L AB113, LAB17 ####Job Service Consultant: PHILLY FRANCO ([phone])[facility] ([facility])[address] [place] [address] Sodium [Moles/Vol] 130 mmol/L Low 136-145 [facility] Comment on above: Performed By: #### L 113, LAB17 ####Job Service Consultant: PHILLY FRANCO ([phone])[facility] ([facility])[address] [place] [address] Urea nitrogen [Mass/Vol] 26 mg/dL High 9-23 [facility] Comment on above: Performed By: #### L AB113, LAB17 ####Job Service Consultant: PHILLY FRANCO ([phone])[facility] ([facility])[address] [place] [address] Comprehensive metabolic 1998 panelon 12-14-2024 Albumin [Mass/Vol] 1.4 g/dL Low 3.4 - 4.8 g/dL [facility] ALP [Catalytic activity/Vol] 131 U/L 40 - 150 U/L [facility] ALT [Catalytic activity/Vol] 13 U/L NINF - 30 U/L [facility] Anion gap [Moles/Vol] 9 mmol/L 3 - 13 mmol/L [facility] AST [Catalytic activity/Vol] 50 U/L High NINF - 34 U/L [facility] Bilirubin [Mass/Vol] 0.4 mg/dL NINF - 1.2 mg/dL [facility] Calcium [Mass/Vol] 7.5 mg/dL Low 8.8 - 10. 0 mg/dL [facility] Chloride [Moles/Vol] 96 mmol/L Low 98 - 10 7 mmol/L [facility] CO2 [Moles/Vol] 25 mmol/L 23 - 31 mmol/L [facility] Creatinine [Mass/Vol] 4.37 mg/dL High 0.57 - 1.11 mg/dL [facility] GFR/1.73 sq M.predicted (S/P/Bld) [Vol rate/Area] 10.1 mL/min Low - PINF [facility] Glucose [Mass/Vol] 95 mg/dL 82 - 115 mg/dL [facility] Interpretation and review of laboratory results Abnormal [facility] Potassium [Moles/Vol] 3.7 mmol/L 3.5 - 5.1 mmol/L [facility] Protein [Mass/Vol] 6.2 g/dL Low 6.4 - 8.3 g/dL [facility] Sodium [Moles/Vol] 130 mmol/L Low 136 - 145 mmol/L [facility] Urea nitrogen [Mass/Vol] 26 mg/dL High 9 - 23 mg/dL [facility] Consulton 12-14-2024 Consult Normal [facility] Laboratory - Chemistry and C hemistry - challengeon 12-14-2024 Glucose [Mass/Vol] 117 mg/dL High 70 - 100 mg/dL [facility] Glucose [Mass/Vol] 96 mg/dL 70 - 100 mg/dL [facility] Glucose [Mass/Vol] 104 mg/dL High 70 - 100 mg/dL [facility] Ammonia (P) [Moles/Vol] 26 umol/L 18 - 72 umol/L [facility] Glucose [Mass/Vol] 98 mg/dL 70 - 100 mg/dL [facility] No Panel Informationon 12-14 Interpretation and review of laboratory results Abnormal [facility] Interpretation and review of laboratory results Normal [facility] Interpretation and review of laboratory results Abnormal [facility] Interpretation and review of laboratory results Normal [facility] Interpretation and review of laboratory results Normal [facility] Nursing Noteon 12-14-2024 Nursing Note Normal [facility] PHOSPHORUSon 12-14-2024 Phosphate [Mass/Vol] 2.3 mg/dL Normal 2.3-4.7 [facility] Comment on above: Performed By: #### L AB113, LAB17 ####Job Service Consultant: PHILLY FRANCO ([phone])[facility] ([facility])[address] [place] [address] [place] Phosphate [Moles/Vol]on 12-04 Interpretation and review of laboratory results Normal [facility] Phosphate [Mass/Vol] 2.3 mg/dL 2.3 - 4 .7 mg/dL [facility] Progress Noteon 12-14-2024 Progress Note Normal [facility] Progress Note Normal [facility] Progress Note Normal [facility] Progress Note Normal [facility] Progress Note Normal [facility] Progress Note Normal [facility] Progress Note Normal [facility] [id number] 12-13-2024 [id number] Normal [facility] BASIC METABOLIC PANELon 12-04 Anion gap [Moles/Vol] 9 mmol/L Normal 3-13 [facility] Comment on above: Performed By: #### L AB67, LAB15, [id number], [id number] ####Job Service Consultant: PHILLY FRANCO ([phone])[facility] ([facility])[address] [place] [address] [place] Calcium [Mass/Vol] 7.8 mg/dL Low 8.8-10.0 [facility] Comment on above: Performed By: #### L AB67, LAB15, [id number], [id number] ####Job Service Consultant: PHILLY FRANCO ([phone])[facility] ([facility])[address] [place] [address] [place] Chloride [Moles/Vol] 100 mmol/L Normal 98-107 [facility] Comment on above: Performed By: #### L AB67, LAB15, [id number], [id number] ####Job Service Consultant: PHILLY FRANCO ([phone])[facility] ([facility])[address] [place] [address] [place] CO2 [Moles/Vol] 25 mmol/L Normal 23-31 [facility] Comment on above: Performed By: #### L AB67, LAB15, [id number], [id number] ####Job Service Consultant: PHILLY FRANCO ([phone])[facility] ([facility])[address] [place] [address] [place] Creatinine [Mass/Vol] 3.82 mg/dL High 0.57-1.11 [facility] Comment on above: Performed By: #### L AB67, LAB15, [id number], [id number] ####Job Service Consultant: PHILLY FRANCO ([phone])[facility])[address] [place] [address] GLOMERULAR FILTRATION RATE ML/MIN/1.73 SQ M.PREDICTED 11.9 mL/min/1.73m*2 Low >60.0 [facility] Comment on above: Result Comment: Calc ulation based on the Chronic Kidney Disease Epidemiology Collaboration (CKD-EPI) equation refit without adjustment for race Performed By: #### L AB67, LAB15, [id number], [id number] ####Job Service Consultant: PHILLY FRANCO ([phone])[facility])[address] [place] [address] Glucose [Mass/Vol] 47 mg/dL Critically low 82-115 [facility] Comment on above: Performed By: #### L AB67, LAB15, [id number], [id number] ####Job Service Consultant: PHILLY FRANCO ([phone])[facility] ([facility])[address] [place] [address] Potassium [Moles/Vol] 4.2 mmol/L Normal 3.5-5.1 [facility] Comment on above: Result Comment: [facility] potassium values may be up to 0.5 mmol/L lower than serum values. Performed By: #### L AB67, LAB15, [id number], [id number] ####Job Service Consultant: PHILLY FRANCO ([phone])[facility] ([facility])[address] [place] [address] [place] Sodium [Moles/Vol] 134 mmol/L Low 136-145 [facility] Comment on above: Performed By: #### L AB67, LAB15, [id number], [id number] ####Job Service Consultant: PHILLY FRANCO ([phone])[facility])[address] [place] [address] [place] Urea nitrogen [Mass/Vol] 22 mg/dL Normal 9-23 [facility] Comment on above: Performed By: #### L AB67, LAB15, [id number], [id number] ####Job Service Consultant: PHILLY FRANCO ([phone])[facility])[address] [place] [address] Basic metabolic 1998 panelOr dered By: Yogi Stanley on 12-13-2024 Anion gap [Moles/Vol] 9 mmol/L 3 - 13 mmol/L [facility] Calcium [Mass/Vol] 7.8 mg/dL Low 8.8 - 10. 0 mg/dL [facility] Chloride [Moles/Vol] 100 mmol/L 98 - 10 7 mmol/L [facility] CO2 [Moles/Vol] 25 mmol/L 23 - 31 mmol/L [facility] Creatinine [Mass/Vol] 3.82 mg/dL High 0.57 - 1.11 mg/dL [facility] GFR/1.73 sq M.predicted (S/P/Bld) [Vol rate/Area] 11.9 mL/min Low - PINF [facility] Glucose [Mass/Vol] 47 mg/dL Critically low 82 - 11 5 mg/dL [facility] Interpretation and review of laboratory results Abnormal [facility] Potassium [Moles/Vol] 4.2 mmol/L 3.5 - 5.1 mmol/L [facility] Sodium [Moles/Vol] 134 mmol/L Low 136 - 145 mmol/L [facility] Urea nitrogen [Mass/Vol] 22 mg/dL 9 - 23 mg/dL [facility] C-REACTIVE PROTEINon 025 CRP [Mass/Vol] 133.0 mg/L High <5.0 [facility] Comment on above: Performed By: #### L AB67, LAB15, [id number], [id number] ####Job Service Consultant: PHILLY FRANCO ([phone])[facility] ([facility])[address] [place] [address] CBC (HEMOGRAM)on 12-13-2024 Erythrocyte distribution width (RBC) [Ratio] 17.6 % High 11.5-15.0 [facility] Comment on above: Performed By: #### L [id number] ####Job Service Consultant: PHILLY FRANCO ([id number])[facility] ([facility])[address] [place] [address] Hematocrit (Bld) [Volume fraction] 25.3 % Low 35.0-47.0 [facility] Comment on above: Performed By: #### L [id number] ####Job Service Consultant: PHILLY FRANCO ([phone])[facility])[address] [place] [address] Hemoglobin (Bld) [Mass/Vol] 8.0 g/dL Low 11.7-16.0 [facility] Comment on above: Performed By: #### L [id number] ####Job Service Consultant: PHILLY FRANCO ([phone])[facility])[address] [place] [address] MCH (RBC) [Entitic mass] 29.1 pg Normal 26.0-34.0 [facility] Comment on above: Performed By: #### L [id number] ####Job Service Consultant: PHILLY FRANCO ([phone])[facility] ([facility])[address] [place] [address] MCHC 31.6 % Normal 30.5-36.0 [facility] Comment on above: Performed By: #### L [id number] ####Job Service Consultant: PHILLY FRANCO ([phone])[facility])[address] [place] [address] MCV (RBC) [Entitic vol] 92.0 fL Normal 77.0-99.[address] [facility] Comment on above: Performed By: #### L [id number] ####Job Service Consultant: PHILLY FRANCO ([id number])[facility] ([facility])[address] [place] [address] Platelet mean volume (Bld) [Entitic vol] 10.5 fL Normal 9.0-12.7 [facility] Comment on above: Performed By: #### L [id number] ####Job Service Consultant: PHILLY FRANCO ([phone])[facility])[address] [place] [address] Platelets (Bld) [#/Vol] 312 10*3/uL Normal 140-440 [facility] Comment on above: Performed By: #### L [id number] ####Job Service Consultant: PHILLY FRANCO ([phone])[facility])[address] [place] [address] RBC (Bld) [#/Vol] 2.75 10*6/uL Low 3.80-5.20 [facility] Comment on above: Performed By: #### L [id number] ####Job Service Consultant: PHILLY FRANCO ([phone])[facility])[address] [place] [address] WBC (Bld) [#/Vol] 16.5 10*3/uL High 3.6-10.7 [facility] Comment on above: Performed By: #### L [id number] ####Job Service Consultant: PHILLY FRANCO ([phone])[address] CBC panel Auto (Bld)on 12-13 Erythrocyte distribution width (RBC) [Ratio] 17.6 % High 11.5 - 15.0 % [facility] Hematocrit (Bld) [Volume fraction] 25.3 % Low 35.0 - 47.0 % [facility] Hemoglobin (Bld) [Mass/Vol] 8 g/dL Low 11.7 - 16.0 g/dL [facility] Interpretation and review of laboratory results Abnormal [facility] MCH (RBC) [Entitic mass] 29.1 pg 26.0 - 34.0 pg [facility] MCHC (RBC) [Mass/Vol] 31.6 % 30.5 - 36.0 % [facility] MCV (RBC) [Entitic vol] 92 fL 77.0 - 99.0 fL [facility] Platelet mean volume (Bld) [Entitic vol] 10.5 fL 9.0 - 12.7 fL [facility] Platelets (Bld) [#/Vol] 312 10*3/uL 140 - 440 10*3/uL [facility] RBC (Bld) [#/Vol] 2.75 10*6/uL Low 3.80 - 5.2 0 10*6/uL [facility] WBC (Bld) [#/Vol] 16.5 10*3/uL High 3.6 - 10.7 10*3/uL [facility] CRP [Mass/Vol]on 12-13-2024 Interpretation and review of laboratory results Abnormal [facility] Cobalamin (Vitamin B12) [Mas s/Vol]on 12-13-2024 Interpretation and review of laboratory results Abnormal [facility] Health Consulton 12-13-2024 Consult Normal [facility] Consult Normal [facility] Consult Normal [facility] ECG 12-LEADon 12-13-2024 ECG 12-LEAD IMPRESSION: Sinus rhythm Probable LVH with secondary repol abnrm Electronically Signed On 12-13-2024 19:24:44 EDT by Bhavik Estrada Normal [facility] Laboratory - Chemistry and C hemistry - challengeon 12-13-2024 Glucose [Mass/Vol] 105 mg/dL High 70 - 100 mg/dL [facility] Cobalamin (Vitamin B12) [Mass/Vol] 1419 pg/mL High 213 - 816 pg/mL [facility] TSH Qn 0.83 m[IU]/L [facility] Glucose [Mass/Vol] 105 mg/dL High 70 - 100 mg/dL [facility] CRP [Mass/Vol] 133 mg/L High NINF - 5.0 mg/L [facility] Glucose [Mass/Vol] 78 mg/dL 70 - 100 mg/dL [facility] Glucose [Mass/Vol] 55 mg/dL Low 70 - 100 mg/dL [facility] Laboratory - Drug toxicology on 12-13-2024 Vancomycin [Mass/Vol] 15.4 ug/mL [facility] No Panel InformationOrdered By: Bhavik Estrada on 12-13-2024 P [place] 61 degrees [facility] [employer] Work Phone: [place] Interval 121 ms [facility] Work Phone: QRS [place] 20 degrees [employer] Work Phone: QRSD Interval 72 ms [facility] Work Phone: QT Interval 360 ms [facility] Work Phone: QTC Interval 451 ms [facility] Work Phone: [employer] [place] 19 degrees [facility] Work Phone: [facility] [employer] Work Phone: No Panel Informationon 12-13 CV EPIPHANY [facility] Interpretation and review of laboratory results Abnormal [facility] Interpretation and review of laboratory results Abnormal [facility] Interpretation and review of laboratory results Normal [facility] Interpretation and review of laboratory results Abnormal [facility] Nursing Noteon 12-13-2024 Nursing Note Brother Deshawn notified of using soft wrist restrained. Normal [facility] Nursing Note Unable to run pt tonight due to access issues, Dr Castaneda notified, order of cathflow ordered and placed in the access. Access to be reassessed in the morning. This RN will relay message to AM charge nurse. Normal [facility] Nursing Note Normal [facility] Progress Noteon 12-13-2024 Progress Note Normal [facility] Progress Note Normal [facility] Progress Note Normal [facility] Progress Note Normal [facility] Progress Note Normal [facility] Progress Note PHYSICAL THERAPY [facility] Name/MRN: Apoorva Gonzalez ([id number]) Date: 12/13/2024 Plans for MRI with sedation, also has pending shoulder x-rays. Will continue to hold and assess at a later time as able. Guilherme Tavares, PT Normal [facility] Progress Note Normal [facility] Progress Note To schedule mri with sedation please call [phone] Normal [facility] THYROID STIMULATING HORMONEo n 12-13-2024 THYROID STIMULATING HORMONE 0.83 uIU/mL Normal 0.35-4.94 [facility] Comment on above: Performed By: #### L AB67, LAB15, [id number], [id number] ####Job Service Consultant: PHILLY FRANCO ([phone])[facility] TSH Qnon 12-13-2024 Interpretation and review of laboratory results Normal [facility] VANCOMYCIN, RANDOMon 025 VANCOMYCIN 15.4 ug/mL Normal [facility] Comment on above: Result Comment: GUERO Amanda COMMENTS:Please obtain 4 hours after the end of hemodialysisToxicity is seen at concentrations >80-100 ug/mLTherapeutic (Peak) range: 20-40Therapeutic (Trough) range: 5-10 Performed By: #### L AB40 ####Job Service Consultant: PHILLY FRANCO ([phone])[facility] ([facility])[address] [place] [address] VITAMIN B12on 12-13-2024 Cobalamin (Vitamin B12) [Mass/Vol] 1419 pg/mL High 213-816 [facility] Comment on above: Performed By: #### L AB67, LAB15, [id number], [id number] ####Job Service Consultant: PHILLY FRANCO ([phone])[facility] [place] [address] Vital signsOrdered By: [place] Estrada on 12-13-2024 Heart rate 94 /min bpm [facility] [employer] Work Phone: XR SHOULDER 2+ VIEWS LEFTon 12-13-2024 XR SHOULDER 2+ VIEWS LEFT Normal [facility] XR Shoulder - left 2 Viewson 12-13-2024 [facility] SYSTEM [facility] Radiology Study observation (narrative) [facility] XR Shoulder - left 2 ViewsOr dered By: Barrera Stack on 12-13-2024 [facility] [employer] Phone: [phone] 12-12-2024 [id number] Normal [facility] [id number] 12-12-2024 [id number] Normal [facility] BLOOD CULTUREon 12-12-2024 Bacteria identified Cx Nom (Bld) Normal [facility] Comment on above: Performed By: #### L [id number] ####Job Service Consultant: PHILLY FRANCO ([phone])[facility] ([facility])[address] [place] [address] CBC W Auto Differential pane l (Bld)on 12-12-2024 Basophils (Bld) [#/Vol] 0.1 10*3/uL 0.0 - 0.2 10*3/uL [facility] Basophils/100 WBC (Bld) 1.2 % 0.0 - 2.0 % [facility] Eosinophils (Bld) [#/Vol] 0.2 10*3/uL 0.0 - 0.5 10*3/uL [facility] Eosinophils/100 WBC (Bld) 2.1 % 0.0 - 6.0 % [facility] Erythrocyte distribution width (RBC) [Ratio] 17.8 % High 11.5 - 15.0 % [facility] Hematocrit (Bld) [Volume fraction] 24.8 % Low 35.0 - 47.0 % [facility] Hemoglobin (Bld) [Mass/Vol] 8 g/dL Low 11.7 - 16.0 g/dL [facility] Immature granulocytes (Bld) [#/Vol] 0.1 10*3/uL High NINF - 0.1 10*3/uL [facility] Immature granulocytes/100 WBC (Bld) 0.4 % 0.0 - 2.0 % [facility] Interpretation and review of laboratory results Abnormal [facility] Lymphocytes (Bld) [#/Vol] 1 10*3/uL 1.0 - 4.3 10*3/uL [facility] Lymphocytes/100 WBC (Bld) 8.5 % Low 15.0 - 45.0 % [facility] MCH (RBC) [Entitic mass] 29.7 pg 26.0 - 34.0 pg [facility] MCHC (RBC) [Mass/Vol] 32.3 % 30.5 - 36.0 % [facility] MCV (RBC) [Entitic vol] 92.2 fL 77.0 - 99.0 fL [facility] Monocytes (Bld) [#/Vol] 0.6 10*3/uL 0.0 - 0.9 10*3/uL [facility] Monocytes/100 WBC (Bld) 4.9 % Low 5.0 - 13.0 % [facility] Neutrophils (Bld) [#/Vol] 9.5 10*3/uL High 1.8 - 7.5 10*3/uL [facility] Neutrophils/100 WBC (Bld) 82.9 % High 38.0 - 82.0 % [facility] Nucleated RBC/100 WBC (Bld) [Ratio] 0 % [facility] Platelet mean volume (Bld) [Entitic vol] 10.7 fL 9.0 - 12.7 fL [facility] Platelets (Bld) [#/Vol] 332 10*3/uL 140 - 440 10*3/uL [facility] RBC (Bld) [#/Vol] 2.69 10*6/uL Low 3.80 - 5.2 0 10*6/uL [facility] WBC (Bld) [#/Vol] 11.5 10*3/uL High 3.6 - 10.7 10*3/uL [facility] CBC WITH AUTO DIFFERENTIALon 12-12-2024 Basophils (Bld) [#/Vol] 0.1 10*3/uL Normal 0.0-0.2 [facility] Comment on above: Performed By: #### L [id number] ####Job Service Consultant: PHILLY FRANCO ([phone])[facility])[address] [place] [address] Basophils/100 WBC (Bld) 1.2 % Normal 0.0-2.0 [facility] Comment on above: Performed By: #### L [id number] ####Job Service Consultant: PHILLY FRANCO ([phone])[facility])[address] [place] [address] Eosinophils (Bld) [#/Vol] 0.2 10*3/uL Normal 0.0-0.5 [facility] Comment on above: Performed By: #### L [id number] ####Job Service Consultant: PHILLY FRANCO ([phone])[facility])[address] [place] [address] Eosinophils/100 WBC (Bld) 2.1 % Normal 0.0-6.0 [facility] Comment on above: Performed By: #### L [id number] ####Job Service Consultant: PHILLY FRANCO ([phone])[facility])[address] [place] [address] Erythrocyte distribution width (RBC) [Ratio] 17.8 % High 11.5-15.0 [facility] Comment on above: Performed By: #### L [id number] ####Job Service Consultant: PHILLY FRANCO ([phone])[facility])[address] [place] [address] Hematocrit (Bld) [Volume fraction] 24.8 % Low 35.0-47.0 [facility] Comment on above: Performed By: #### L [id number] ####Job Service Consultant: PHILLY FRANCO ([phone])[facility])[address] [place] [address] Hemoglobin (Bld) [Mass/Vol] 8.0 g/dL Low 11.7-16.0 [facility] Comment on above: Performed By: #### L [id number] ####Job Service Consultant: PHILLY FRANCO ([phone])[facility])[address] [place] [address] IMMATURE GRANS % 0.4 % Normal 0.0-2.0 [facility] Comment on above: Performed By: #### L [id number] ####Job Service Consultant: PHILLY FRANCO ([phone])[facility])[address] [place] [address] IMMATURE GRANS ABSOLUTE 0.1 10*3/uL High <0.1 [facility] Comment on above: Performed By: #### L [id number] ####Job Service Consultant: PHILLY FRANCO ([phone])[facility])[address] [place] [address] Lymphocytes (Bld) [#/Vol] 1.0 10*3/uL Normal 1.0-4.3 [facility] Comment on above: Performed By: #### L [id number] ####Job Service Consultant: PHILLY FRANCO ([phone])[facility])[address] [place] [address] Lymphocytes/100 WBC (Bld) 8.5 % Low 15.0-45.0 [facility] Comment on above: Performed By: #### L [id number] ####Job Service Consultant: PHILLY FRANCO ([phone])[facility])[address] [place] [address] MCH (RBC) [Entitic mass] 29.7 pg Normal 26.0-34.0 [facility] Comment on above: Performed By: #### L [id number] ####Job Service Consultant: PHILLY FRANCO ([phone])[facility])[address] [place] [address] MCHC 32.3 % Normal 30.5-36.0 [facility] Comment on above: Performed By: #### L [id number] ####Job Service Consultant: PHILLY FRANCO ([phone])[facility])[address] [place] [address] MCV (RBC) [Entitic vol] 92.2 fL Normal 77.0-99.0 [facility] Comment on above: Performed By: #### L [id number] ####Job Service Consultant: PHILLY FRANCO ([phone])[facility])[address] [place] [address] Monocytes (Bld) [#/Vol] 0.6 10*3/uL Normal 0.0-0.9 [facility] Comment on above: Performed By: #### L [id number] ####Job Service Consultant: PHILLY FRANCO ([phone])[facility])[address] [place] [address] Monocytes/100 WBC (Bld) 4.9 % Low 5.0-13.0 [facility] Comment on above: Performed By: #### L [id number] ####Job Service Consultant: PHILLY FRANCO ([phone])[facility])[address] [place] [address] NEUTROPHILS ABSOLUTE 9.5 10*3/uL High 1.8-7.5 [facility] Comment on above: Performed By: #### L [id number] ####Job Service Consultant: PHILLY FRANCO ([phone])[facility])[address] [place] [address] Neutrophils/100 WBC (Bld) 82.9 % High 38.0-82.0 [facility] Comment on above: Performed By: #### L [id number] ####Job Service Consultant: PHILLY [id number])[facility] [place] [address] NRBC 0.0 /100 WBCs Normal 0.0-2.0 [facility] Comment on above: Performed By: #### L [id number] ####Job Service Consultant: PHILLY FRANCO ([phone])[facility] ([facility])[address] [place] [address] Platelet mean volume (Bld) [Entitic vol] 10.7 fL Normal 9.0-12.7 [facility] Comment on above: Performed By: #### L [id number] ####Job Service Consultant: PHILLY FRANCO ([phone])[facility] ([facility])[address] [place] [address] Platelets (Bld) [#/Vol] 332 10*3/uL Normal 140-440 [facility] Comment on above: Performed By: #### L [id number] ####Job Service Consultant: PHILLY FRANCO ([phone])[facility] ([facility])[address] [place] [address] RBC (Bld) [#/Vol] 2.69 10*6/uL Low 3.80-5.20 [facility] Comment on above: Performed By: #### L [id number] ####Job Service Consultant: PHILLY FRANCO ([phone])[facility])[address] [place] [address] WBC (Bld) [#/Vol] 11.5 10*3/uL High 3.6-10.7 [facility] Comment on above: Performed By: #### L [id number] ####Job Service Consultant: PHILLY FRANCO ([phone])[facility])[address] [place] [address] COMPREHENSIVE METABOLIC PANE Fam 12-12-2024 Albumin [Mass/Vol] 1.4 g/dL Low 3.4-4.8 [facility] Comment on above: Performed By: #### L [id number] ####Job Service Consultant: PHILLY FRANCO ([phone])[facility])[address] [place] [address] ALP [Catalytic activity/Vol] 131 U/L Normal 40-150 [facility] Comment on above: Performed By: #### L [id number] ####Job Service Consultant: PHILLY FRANCO ([phone])[facility] ([facility])[address] [place] [address] ALT [Catalytic activity/Vol] 10 U/L Normal <30 [facility] Comment on above: Performed By: #### L [id number] ####Job Service Consultant: PHILLY FRANCO ([phone])[facility] ([facility])[address] [place] [address] Anion gap [Moles/Vol] 11 mmol/L Normal 3-13 [facility] Comment on above: Performed By: #### L [id number] ####Job Service Consultant: PHILLY FRANCO ([phone])[facility] ([facility])[address] [place] [address] AST [Catalytic activity/Vol] 36 U/L High <34 [facility] Comment on above: Performed By: #### L [id number] ####Job Service Consultant: PHILLY FRANCO ([id number])[facility] ([facility])[address] [place] [address] Bilirubin [Mass/Vol] 0.4 mg/dL Normal <1.2 [facility] Comment on above: Performed By: #### L [id number] ####Job Service Consultant: PHILLY FRANCO ([phone])[facility] ([facility])[address] [place] [address] Calcium [Mass/Vol] 7.8 mg/dL Low 8.8-10.0 [facility] Comment on above: Performed By: #### L [id number] ####Job Service Consultant: PHILLY FRANCO ([phone])[facility])[address] [place] [address] Chloride [Moles/Vol] 100 mmol/L Normal 98-107 [facility] Comment on above: Performed By: #### L [id number] ####Job Service Consultant: PHILLY FRANCO ([phone])[facility] ([facility])[address] [place] [address] CO2 [Moles/Vol] 26 mmol/L Normal 23-31 [facility] Comment on above: Performed By: #### L [id number] ####Job Service Consultant: PHILLY FRANCO ([phone])[facility])[address] [place] [address] Creatinine [Mass/Vol] 5.60 mg/dL High 0.57-1.11 [facility] Comment on above: Performed By: #### L [id number] ####Job Service Consultant: PHILLY FRANCO ([phone])[facility])[address] [place] [address] GLOMERULAR FILTRATION RATE ML/MIN/1.73 SQ M.PREDICTED 7.5 mL/min/1.73m*2 Low >60.0 [facility] Comment on above: Result Comment: Calc ulation based on the Chronic Kidney Disease Epidemiology Collaboration (CKD-EPI) equation refit without adjustment for race Performed By: #### L [id number] ####Job Service Consultant: PHILLY FRANCO ([phone])[facility] ([facility])[address] [place] [address] Glucose [Mass/Vol] 77 mg/dL Low 82-115 [facility] Comment on above: Performed By: #### L [id number] ####Job Service Consultant: PHILLY FRANCO ([phone])[facility])[address] [place] [address] Potassium [Moles/Vol] 4.1 mmol/L Normal 3.5-5.1 [facility] Comment on above: Result Comment: [facility] potassium values may be up to 0.5 mmol/L lower than serum values. Performed By: #### L [id number] ####Job Service Consultant: PHILLY FRANCO ([phone])[facility])[address] [place] [address] Protein [Mass/Vol] 6.1 g/dL Low 6.4-8.3 [facility] Comment on above: Performed By: #### L [id number] ####Job Service Consultant: PHILLY FRANCO ([phone])[facility] [place] [address] Sodium [Moles/Vol] 137 mmol/L Normal 136-145 [facility] Comment on above: Performed By: #### L [id number] ####Job Service Consultant: PHILLY FRANCO ([phone])[facility] [place], [place] [address] Urea nitrogen [Mass/Vol] 38 mg/dL High 9-23 [facility] Comment on above: Performed By: #### L [id number] ####Job Service Consultant: PHILLY FRANCO ([phone])[facility] [place] [address] CT HEAD WO IV CONTRASTon CT HEAD WO IV CONTRAST Normal [facility] CT Head WO contraston 2024 [facility] RAD[facility] Radiology Study observation (narrative) [facility] Comprehensive metabolic 1998 panelon 12-12-2024 Albumin [Mass/Vol] 1.4 g/dL Low 3.4 - 4.8 g/dL [facility] ALP [Catalytic activity/Vol] 131 U/L 40 - 150 U/L [facility] ALT [Catalytic activity/Vol] 10 U/L [facility] - 30 U/L [facility] Anion gap [Moles/Vol] 11 mmol/L 3 - 13 mmol/L [facility] AST [Catalytic activity/Vol] 36 U/L High NINF - 34 U/L [facility] Bilirubin [Mass/Vol] 0.4 mg/dL NINF - 1.2 mg/dL [facility] Calcium [Mass/Vol] 7.8 mg/dL Low 8.8 - 10. 0 mg/dL [facility] Chloride [Moles/Vol] 100 mmol/L 98 - 10 7 mmol/L [facility] CO2 [Moles/Vol] 26 mmol/L 23 - 31 mmol/L [facility] Creatinine [Mass/Vol] 5.6 mg/dL High 0.57 - 1.11 mg/dL [facility] GFR/1.73 sq M.predicted (S/P/Bld) [Vol rate/Area] 7.5 mL/min Low - PINF [facility] Glucose [Mass/Vol] 77 mg/dL Low 82 - 115 mg/dL [facility] Interpretation and review of laboratory results Abnormal [facility] Potassium [Moles/Vol] 4.1 mmol/L 3.5 - 5.1 mmol/L [facility] Protein [Mass/Vol] 6.1 g/dL Low 6.4 - 8.3 g/dL [facility] Sodium [Moles/Vol] 137 mmol/L 136 - 145 mmol/L [facility] Urea nitrogen [Mass/Vol] 38 mg/dL High 9 - 23 mg/dL [facility] Consulton 12-12-2024 Consult Normal [facility] Laboratory - Chemistry and C hemistry - challengeon 12-12-2024 Glucose [Mass/Vol] 117 mg/dL High 70 - 100 mg/dL [facility] Glucose [Mass/Vol] 63 mg/dL Low 70 - 100 mg/dL [facility] Glucose [Mass/Vol] 72 mg/dL 70 - 100 mg/dL [facility] No Panel Informationon 12-12 Interpretation and review of laboratory results Abnormal [facility] Interpretation and review of laboratory results Abnormal [facility] Interpretation and review of laboratory results Normal [facility] Nursing Noteon 12-12-2024 Nursing Note Normal [facility] Nursing Note Patient's significan t other had to be stopped from pouring water into patient's mouth. He said that he knows she has to be thirsty. RN educated on why you cannot do this as it can cause aspiration. Normal [facility] Nursing Note Normal [facility] Nursing Note Normal [facility] Nursing Note Patient to xray Normal [facility] Progress Noteon 12-12-2024 Progress Note OCCUPATIONAL THERAPY [facility] Name/MRN: Apoorva Gonzalez ([id number]) Date: 12/12/2024 Attempt Note Attempted OT eval. Awaiting results of C-spine MRI. ~Jelly Gleason MS, OTR/L Normal [facility] Progress Note Normal [facility] Progress Note Normal [facility] Progress Note Normal [facility] Progress Note Normal [facility] Progress Note MRI attempted again; pt. Unable to tolerate exam. Pt. Very confused, hitting head on camera, swinging arms and groaning. Too dangerous to leave pt. Alone on scanner due to fear of personal injury to self. MRI aborted. Normal [facility] Progress Note Normal [facility] XR ABDOMEN 1 VIEWon 12-13-19 25 XR ABDOMEN 1 VIEW Normal [facility] XR Abdomen Single viewon [facility] XR CHEST 1 VIEWon 12-12-2024 XR CHEST 1 VIEW Normal [facility] XR Chest Single viewon 12-12 [facility] 25-hydroxyvitamin D3 [Mass/V ol]on 12-11-2024 Interpretation and review of laboratory results Abnormal [facility] BLOOD GAS ARTERIALon 025 AMOUNT OF OXYGEN 21 Normal [facility] Comment on above: Performed By: #### L [id number] ####Job Service Consultant: PHILLY FRANCO ([phone])[facility])[address] [place] [address] Base excess Calc (Bld) [Moles/Vol] 3.6 mmol/L High -3.0-3.0 [facility] Comment on above: Performed By: #### L [id number] ####Job Service Consultant: PHILLY FRANCO ([phone])[facility])[address] [place] [address] CO2 [Moles/Vol] 28.8 mmol/L High 23.0-27.0 [facility] Comment on above: Performed By: #### L [id number] ####Job Service Consultant: PHILLY FRANCO ([phone])[facility])[address] [place] [address] HCO3 (Bld) [Moles/Vol] 27.6 mmol/L High 21.0-25.0 [facility] Comment on above: Performed By: #### L [id number] ####Job Service Consultant: PHILLY FRANCO ([phone])[facility])[address] [place] [address] [place] Hemoglobin (Bld) [Mass/Vol] 9.3 g/dL Normal Screen only [facility] Comment on above: Performed By: #### L [id number] ####Job Service Consultant: PHILLY FRANCO ([phone])[facility])[address] [place] [address] OXYGEN SATURATION (%) IN ARTERIAL BLOOD 85.3 % Low 95.0-100.0 [facility] Comment on above: Performed By: #### L [id number] ####Job Service Consultant: PHILLY FRANCO ([phone])[facility] ([facility])[address] [place] [address] PCO2 ARTERIAL 39.5 mm Hg Normal >35.0-<45.0 [facility] Comment on above: Performed By: #### L [id number] ####Job Service Consultant: PHILLY FRANCO ([phone])[facility])[address] [place] [address] PH ARTERIAL 7.462 High 7.350-7.450 [facility] Comment on above: Performed By: #### L [id number] ####Job Service Consultant: PHILLY FRANCO ([phone])[facility] ([facility])[address] [place] [address] PO2 ARTERIAL 51.0 mm Hg Low 80.0-100.0 [facility] Comment on above: Performed By: #### L [id number] ####Job Service Consultant: PHILLY FRANCO ([phone])[facility])[address] [place] [address] SOURCE OF OXYGEN None (Room Air) Normal [facility] Comment on above: Performed By: #### L [id number] ####Job Service Consultant: PHILLY FRANCO ([phone])[facility] ([facility])[address] [place] [address] CBC W Auto Differential pane l (Bld)Ordered By: Andre Ervin on 12-11-2024 Basophils (Bld) [#/Vol] 0.1 10*3/uL 0.0 - 0.2 10*3/uL [facility] Basophils/100 WBC (Bld) 1.1 % 0.0 - 2.0 % [facility] Eosinophils (Bld) [#/Vol] 0.4 10*3/uL 0.0 - 0.5 10*3/uL [facility] Eosinophils/100 WBC (Bld) 3.2 % 0.0 - 6.0 % [facility] Erythrocyte distribution width (RBC) [Ratio] 18.3 % High 11.5 - 15.0 % [facility] Hematocrit (Bld) [Volume fraction] 23.6 % Low 35.0 - 47.0 % [facility] Hemoglobin (Bld) [Mass/Vol] 7.7 g/dL Low 11.7 - 16.0 g/dL [facility] Immature granulocytes (Bld) [#/Vol] 0 10*3/uL NINF - 0.1 10*3/uL [facility] Immature granulocytes/100 WBC (Bld) 0.3 % 0.0 - 2.0 % [facility] Interpretation and review of laboratory results Abnormal [facility] IPF 2 [facility] Lymphocytes (Bld) [#/Vol] 1.3 10*3/uL 1.0 - 4.3 10*3/uL [facility] Lymphocytes/100 WBC (Bld) 10.5 % Low 15.0 - 45.0 % [facility] MCH (RBC) [Entitic mass] 30 pg 26.0 - 34.0 pg [facility] MCHC (RBC) [Mass/Vol] 32.6 % 30.5 - 36.0 % [facility] MCV (RBC) [Entitic vol] 91.8 fL 77.0 - 99.0 fL [facility] Monocytes (Bld) [#/Vol] 0.5 10*3/uL 0.0 - 0.9 10*3/uL [facility] Monocytes/100 WBC (Bld) 4.4 % Low 5.0 - 13.0 % [facility] Neutrophils (Bld) [#/Vol] 9.8 10*3/uL High 1.8 - 7.5 10*3/uL [facility] Neutrophils/100 WBC (Bld) 80.5 % 38.0 - 82.0 % [facility] Nucleated RBC/100 WBC (Bld) [Ratio] 0 % [facility] Platelet mean volume (Bld) [Entitic vol] 10.6 fL 9.0 - 12.7 fL [facility] Platelets (Bld) [#/Vol] 300 10*3/uL 140 - 440 10*3/uL [facility] RBC (Bld) [#/Vol] 2.57 10*6/uL Low 3.80 - 5.2 0 10*6/uL [facility] WBC (Bld) [#/Vol] 12.1 10*3/uL High 3.6 - 10.7 10*3/uL [facility] CBC WITH AUTO DIFFERENTIALon 12-11-2024 Basophils (Bld) [#/Vol] 0.1 10*3/uL Normal 0.0-0.2 [facility] Comment on above: Performed By: #### L [id number] ####Job Service Consultant: PHILLY FRANCO ([phone])[facility] ([facility])[address] [place] [address] Basophils/100 WBC (Bld) 1.1 % Normal 0.0-2.0 [facility] Comment on above: Performed By: #### L [id number] ####Job Service Consultant: PHILLY FRANCO ([phone])[facility] ([facility])[address] [place] [address] [place] Eosinophils (Bld) [#/Vol] 0.4 10*3/uL Normal 0.0-0.5 [facility] Comment on above: Performed By: #### L [id number] ####Job Service Consultant: PHILLY FRANCO ([phone])[facility] ([facility])[address] [place] [address] [place] Eosinophils/100 WBC (Bld) 3.2 % Normal 0.0-6.0 [facility] Comment on above: Performed By: #### L [id number] ####Job Service Consultant: PHILLY FRANCO ([phone])[facility])[address] [place] [address] Erythrocyte distribution width (RBC) [Ratio] 18.3 % High 11.5-15.0 [facility] Comment on above: Performed By: #### L [id number] ####Job Service Consultant: PHILLY [id number])[facility] ([facility])[address] [place] [address] Hematocrit (Bld) [Volume fraction] 23.6 % Low 35.0-47.0 [facility] Comment on above: Performed By: #### L [id number] ####Job Service Consultant: PHILLY FRANCO ([phone])[facility])[address] [place] [address] Hemoglobin (Bld) [Mass/Vol] 7.7 g/dL Low 11.7-16.0 [facility] Comment on above: Performed By: #### L [id number] ####Job Service Consultant: PHILLY FRANCO ([phone])[facility])[address] [place] [address] IMMATURE GRANS % 0.3 % Normal 0.0-2.0 [facility] Comment on above: Performed By: #### L [id number] ####Job Service Consultant: PHILLY FRANCO ([phone])[facility] ([facility])[address] [place] [address] IMMATURE GRANS ABSOLUTE 0.0 10*3/uL Normal <0.1 [facility] Comment on above: Performed By: #### L [id number] ####Job Service Consultant: PHILLY FRANCO ([phone])[facility])[address] [place] [address] [place] IPF 2 Normal [facility] Comment on above: Performed By: #### L [id number] ####Job Service Consultant: PHILLY FRANCO ([phone])[facility])[address] [place] [address] Lymphocytes (Bld) [#/Vol] 1.3 10*3/uL Normal 1.0-4.3 [facility] Comment on above: Performed By: #### L [id number] ####Job Service Consultant: PHILLY FRANCO ([phone])[facility])[address] [place] [address] Lymphocytes/100 WBC (Bld) 10.5 % Low 15.0-45.0 [facility] Comment on above: Performed By: #### L [id number] ####Job Service Consultant: PHILLY FRANCO ([phone])[facility])[address] [place] [address] MCH (RBC) [Entitic mass] 30.0 pg Normal 26.0-34.0 [facility] Comment on above: Performed By: #### L [id number] ####Job Service Consultant: PHILLY FRANCO ([phone])[facility])[address] [place] [address] MCHC 32.6 % Normal 30.5-36.0 [facility] Comment on above: Performed By: #### L [id number] ####Job Service Consultant: PHILLY FRANCO ([phone])[address] MCV (RBC) [Entitic vol] 91.8 fL Normal 77.0-99.0 [facility] Comment on above: Performed By: #### L [id number] ####Job Service Consultant: PHILLY FRANCO ([phone])[address] Monocytes (Bld) [#/Vol] 0.5 10*3/uL Normal 0.0-0.9 [facility] Comment on above: Performed By: #### L [id number] ####Job Service Consultant: PHILLY FRANCO ([phone])[address] Monocytes/100 WBC (Bld) 4.4 % Low 5.0-13.0 [facility] Comment on above: Performed By: #### L [id number] ####Job Service Consultant: PHILLY FRANCO ([phone])[address] NEUTROPHILS ABSOLUTE 9.8 10*3/uL High 1.8-7.5 [facility] Comment on above: Performed By: #### L [id number] ####Job Service Consultant: PHILLY FRANCO ([phone])[facility] ([facility])[address] [place] [address] Neutrophils/100 WBC (Bld) 80.5 % Normal 38.0-82.0 [facility] Comment on above: Performed By: #### L [id number] ####Job Service Consultant: PHILLY FRANCO ([phone])[facility] ([facility])[address] [place] [address] NRBC 0.0 /100 WBCs Normal 0.0-2.0 [facility] Comment on above: Performed By: #### L [id number] ####Job Service Consultant: PHILLY FRANCO ([phone])[facility] ([facility])[address] [place] [address] Platelet mean volume (Bld) [Entitic vol] 10.6 fL Normal 9.0-12.7 [facility] Comment on above: Performed By: #### L [id number] ####Job Service Consultant: PHILLY FRANCO ([phone])[facility] ([facility])[address] [place] [address] Platelets (Bld) [#/Vol] 300 10*3/uL Normal 140-440 [facility] Comment on above: Performed By: #### L [id number] ####Job Service Consultant: PHILLY FRANCO ([phone])[facility] ([facility])[address] [place] [address] RBC (Bld) [#/Vol] 2.57 10*6/uL Low 3.80-5.20 [facility] Comment on above: Performed By: #### L [id number] ####Job Service Consultant: PHILLY FRANCO ([phone])[facility] ([facility])[address] [place] [address] [place] WBC (Bld) [#/Vol] 12.1 10*3/uL High 3.6-10.7 [facility] Comment on above: Performed By: #### L [id number] ####Job Service Consultant: PHILLY FRANCO ([phone])[facility] ([facility])[address] [place] [address] COMPREHENSIVE METABOLIC PANE Fam 12-11-2024 Albumin [Mass/Vol] 1.5 g/dL Low 3.4-4.8 [facility] Comment on above: Performed By: #### L [id number] ####Job Service Consultant: PHILLY FRANCO ([phone])[facility] ([facility])[address] [place] [address] ALP [Catalytic activity/Vol] 149 U/L Normal 40-150 [facility] Comment on above: Performed By: #### L [id number] ####Job Service Consultant: PHILLY FRANCO ([phone])[facility] ([facility])[address] [place] [address] ALT [Catalytic activity/Vol] 13 U/L Normal <30 [facility] Comment on above: Performed By: #### L [id number] ####Job Service Consultant: PHILLY FRANCO ([phone])[facility] ([facility])[address] [place] [address] Anion gap [Moles/Vol] 11 mmol/L Normal 3-13 [facility] Comment on above: Performed By: #### L [id number] ####Job Service Consultant: PHILLY FRANCO ([phone])[facility])[address] [place] [address] AST [Catalytic activity/Vol] 41 U/L High <34 [facility] Comment on above: Performed By: #### L [id number] ####Job Service Consultant: PHILLY FRANCO ([phone])[facility])[address] [place] [address] Bilirubin [Mass/Vol] 0.4 mg/dL Normal <1.2 [facility] Comment on above: Performed By: #### L [id number] ####Job Service Consultant: PIHLLY FRANCO ([phone])[facility])[address] [place] [address] Calcium [Mass/Vol] 8.0 mg/dL Low 8.8-10.0 [facility] Comment on above: Performed By: #### L [id number] ####Job Service Consultant: PHILLY FRANCO ([phone])[facility])[address] [place] [address] Chloride [Moles/Vol] 100 mmol/L Normal 98-107 [facility] Comment on above: Performed By: #### L [id number] ####Job Service Consultant: PHILLY FRANCO ([phone])[facility])[address] [place] [address] CO2 [Moles/Vol] 27 mmol/L Normal 23-31 [facility] Comment on above: Performed By: #### L [id number] ####Job Service Consultant: PHILLY FRANCO ([phone])[facility])[address] [place] [address] Creatinine [Mass/Vol] 4.96 mg/dL High 0.57-1.11 [facility] Comment on above: Performed By: #### L [id number] ####Job Service Consultant: PHILLY FRANCO ([phone])[facility])[address] [place] [address] GLOMERULAR FILTRATION RATE ML/MIN/1.73 SQ M.PREDICTED 8.7 mL/min/1.73m*2 Low >60.0 [facility] Comment on above: Result Comment: Calc ulation based on the Chronic Kidney Disease Epidemiology Collaboration (CKD-EPI) equation refit without adjustment for race Performed By: #### L [id number] ####Job Service Consultant: PHILLY FRANCO ([phone])[facility])[address] [place] [address] Glucose [Mass/Vol] 74 mg/dL Low 82-115 [facility] Comment on above: Performed By: #### L [id number] ####Job Service Consultant: PHILLY FRANCO ([phone])[facility])[address] [place] [address] Potassium [Moles/Vol] 3.7 mmol/L Normal 3.5-5.1 [facility] Comment on above: Result Comment: [facility] potassium values may be up to 0.5 mmol/L lower than serum values. Performed By: #### L [id number] ####Job Service Consultant: PHILLY FRANCO ([phone])[facility] ([facility])[address] [place] [address] Protein [Mass/Vol] 6.5 g/dL Normal 6.4-8.3 [facility] Comment on above: Performed By: #### L [id number] ####Job Service Consultant: PHILLY FRANCO ([phone])[facility] ([facility])[address] [place] [address] Sodium [Moles/Vol] 138 mmol/L Normal 136-145 [facility] Comment on above: Performed By: #### L [id number] ####Job Service Consultant: PHILLY FRANCO ([phone])[facility] ([facility])[address] [place] [address] Urea nitrogen [Mass/Vol] 32 mg/dL High 9-23 [facility] Comment on above: Performed By: #### L [id number] ####Job Service Consultant: PHILLY FRANCO ([phone])[facility] ([facility])[address] [place] [address] CT HEAD WO IV CONTRASTon CT HEAD WO IV CONTRAST Normal [facility] CT Head WO contraston 2024 [facility] RADIOLOGY [facility] Comprehensive metabolic 1998 panelon 12-11-2024 Albumin [Mass/Vol] 1.5 g/dL Low 3.4 - 4.8 g/dL [facility] ALP [Catalytic activity/Vol] 149 U/L 40 - 150 U/L [facility] ALT [Catalytic activity/Vol] 13 U/L NINF - 30 U/L [facility] Anion gap [Moles/Vol] 11 mmol/L 3 - 13 mmol/L [facility] AST [Catalytic activity/Vol] 41 U/L High NINF - 34 U/L [facility] Bilirubin [Mass/Vol] 0.4 mg/dL NINF - 1.2 mg/dL [facility] Calcium [Mass/Vol] 8 mg/dL Low 8.8 - 10. 0 mg/dL [facility] Chloride [Moles/Vol] 100 mmol/L 98 - 10 7 mmol/L [facility] CO2 [Moles/Vol] 27 mmol/L 23 - 31 mmol/L [facility] Creatinine [Mass/Vol] 4.96 mg/dL High 0.57 - 1.11 mg/dL [facility] GFR/1.73 sq M.predicted (S/P/Bld) [Vol rate/Area] 8.7 mL/min Low - PINF [facility] Glucose [Mass/Vol] 74 mg/dL Low 82 - 115 mg/dL [facility] Interpretation and review of laboratory results Abnormal [facility] Potassium [Moles/Vol] 3.7 mmol/L 3.5 - 5.1 mmol/L [facility] Protein [Mass/Vol] 6.5 g/dL 6.4 - 8.3 g/dL [facility] Sodium [Moles/Vol] 138 mmol/L 136 - 145 mmol/L [facility] Urea nitrogen [Mass/Vol] 32 mg/dL High 9 - 23 mg/dL [facility] Consulton 12-11-2024 Consult Normal [facility] LACTIC ACID WITH REFLEXon Lactate [Moles/Vol] 0.6 mmol/L Normal 0.5-2.2 [facility] Comment on above: Performed By: #### L [id number] ####Job Service Consultant: PHILLY FRANCO ([phone])[address] Laboratory - Chemistry and C hemistry - challengeon 12-11-2024 Lactate [Moles/Vol] 0.6 mmol/L 0.5 - 2. 2 mmol/L [facility] Base excess Calc (Bld) [Moles/Vol] 3.6 mmol/L High -3.0 - 3.0 mmol/L [facility] CO2 (Bld) [Partial pressure] 39.5 mm[Hg] - PINF [facility] CO2 [Moles/Vol] 28.8 mmol/L High 23.0 - 27.0 mmol/L [facility] HCO3 (Bld) [Moles/Vol] 27.6 mmol/L High 21.0 - 25.0 mmol/L [facility] Oxygen (Bld) [Partial pressure] 51 mm[Hg] Low [facility] pH (Bld) 7.462 [pH] High 7.350 - 7.450 [facility] Glucose [Mass/Vol] 95 mg/dL 70 - 100 mg/dL [facility] 25-hydroxyvitamin D3 [Mass/Vol] 60 ng/mL High 20 - 50 ng/mL [facility] Laboratory - Hematology and Cell countson 12-11-2024 Hemoglobin (Bld) [Mass/Vol] 9.3 g/dL 7.0 g/dl [facility] No Panel Informationon 12-11 Radiology Study observation (narrative) [facility] Interpretation and review of laboratory results Normal [facility] Amount Of Oxygen 21 [facility] Interpretation and review of laboratory results Abnormal [facility] Source Of Oxygen None (Room Air) [facility] Interpretation and review of laboratory results Normal [facility] Nursing Noteon 12-11-2024 Nursing Note Spoke with MRI regarding pt being unable to answer MRI questions. 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 Normal [facility] Nursing Note Normal [facility] Progress Noteon 12-11-2024 Progress Note OCCUPATIONAL THERAPY [facility] Name/MRN: Apoorva Gonazlez ([id number]) Date: 12/11/2024 OT eval on hold pending MRI c-spine imaging. Will evaluate as appropriate. Leonila Rios, OT Normal [facility] Progress Note Normal [facility] Progress Note Normal [facility] Progress Note PHYSICAL THERAPY [facility] Name/MRN: Apoorva Gonzalez ([id number]) Date: 12/11/2024 PT held pending MRI c-spine imaging. Anitha [place], PT Normal [facility] Progress Note Normal [facility] Progress Note Normal [facility] VITAMIN D DEFICIENCY SCREENI NG (VIT D 25)on 12-11-2024 VIT D 25-OH, TOTAL 60 ng/mL High See comment [facility] Comment on above: Result Comment: SHAWNE R COMMENTS:Target concentration: 30 - 40 ng/mL; toxicity seen at concentrations >100 ng/mLLess than 20 ng/mL: Indicative of Vit D deficiencyTest performed by [employer], measuring Total Vitamin D, not individual fractions. Performed By: #### L [id number] ####Job Service Consultant: PHILLY FRANCO ([phone])[facility] ([facility])[address] [place] [address] CBC W Auto Differential pane l (Bld)on 12-10-2024 Basophils (Bld) [#/Vol] 0.1 10*3/uL 0.0 - 0.2 10*3/uL [facility] Basophils/100 WBC (Bld) 1.3 % 0.0 - 2.0 % [facility] Eosinophils (Bld) [#/Vol] 0.3 10*3/uL 0.0 - 0.5 10*3/uL [facility] Eosinophils/100 WBC (Bld) 2.6 % 0.0 - 6.0 % [facility] [employer] Erythrocyte distribution width (RBC) [Ratio] 18.6 % High 11.5 - 15.0 % [facility] Hematocrit (Bld) [Volume fraction] 23.2 % Low 35.0 - 47.0 % [facility] Hemoglobin (Bld) [Mass/Vol] 7.3 g/dL Low 11.7 - 16.0 g/dL [facility] [employer] Immature granulocytes (Bld) [#/Vol] 0 10*3/uL NINF - 0.1 10*3/uL [facility] [employer] Immature granulocytes/100 WBC (Bld) 0.4 % 0.0 - 2.0 % [facility] Interpretation and review of laboratory results Abnormal [facility] Lymphocytes (Bld) [#/Vol] 1.4 10*3/uL 1.0 - 4.3 10*3/uL [facility] Lymphocytes/100 WBC (Bld) 14.1 % Low 15.0 - 45.0 % [facility] [employer] MCH (RBC) [Entitic mass] 29.1 pg 26.0 - 34.0 pg [facility] [employer] MCHC (RBC) [Mass/Vol] 31.5 % 30.5 - 36.0 % [facility] [employer] MCV (RBC) [Entitic vol] 92.4 fL 77.0 - 99.0 fL [facility] [employer] Monocytes (Bld) [#/Vol] 0.7 10*3/uL 0.0 - 0.9 10*3/uL [facility] Monocytes/100 WBC (Bld) 7 % 5.0 - 13.0 % [facility] [employer] Neutrophils (Bld) [#/Vol] 7.6 10*3/uL High 1.8 - 7.5 10*3/uL [facility] Neutrophils/100 WBC (Bld) 74.6 % 38.0 - 82.0 % [facility] Nucleated RBC/100 WBC (Bld) [Ratio] 0 % [facility] Platelet mean volume (Bld) [Entitic vol] 10.3 fL 9.0 - 12.7 fL [facility] Platelets (Bld) [#/Vol] 293 10*3/uL 140 - 440 10*3/uL [facility] RBC (Bld) [#/Vol] 2.51 10*6/uL Low 3.80 - 5.2 0 10*6/uL [facility] WBC (Bld) [#/Vol] 10.2 10*3/uL 3.6 - 10.7 10*3/uL [facility] CBC WITH AUTO DIFFERENTIALon 12-10-2024 Basophils (Bld) [#/Vol] 0.1 10*3/uL Normal 0.0-0.2 [facility] Comment on above: Performed By: #### L [id number] ####Job Service Consultant: PHILLY FRANCO ([phone])[facility])[address] [place] [address] Basophils/100 WBC (Bld) 1.3 % Normal 0.0-2.0 [facility] Comment on above: Performed By: #### L [id number] ####Job Service Consultant: PHILLY FRANCO ([phone])[facility])[address] [place] [address] [place] Eosinophils (Bld) [#/Vol] 0.3 10*3/uL Normal 0.0-0.5 [facility] Comment on above: Performed By: #### L [id number] ####Job Service Consultant: PHILLY [id number])[facility])[address] [place] [address] [place] Eosinophils/100 WBC (Bld) 2.6 % Normal 0.0-6.0 [facility] Comment on above: Performed By: #### L [id number] ####Job Service Consultant: PHILLY [id number])[facility])[address] [place] [address] Erythrocyte distribution width (RBC) [Ratio] 18.6 % High 11.5-15.0 [facility] Comment on above: Performed By: #### L [id number] ####Job Service Consultant: PHILLY FRANCO ([phone])[facility])[address] [place] [address] Hematocrit (Bld) [Volume fraction] 23.2 % Low 35.0-47.0 [facility] Comment on above: Performed By: #### L [id number] ####Job Service Consultant: PHILLY FRANCO ([phone])[facility])[address] [place] [address] Hemoglobin (Bld) [Mass/Vol] 7.3 g/dL Low 11.7-16.0 [facility] Comment on above: Performed By: #### L [id number] ####Job Service Consultant: PHILLY FRANCO ([phone])[facility])[address] [place] [address] IMMATURE GRANS % 0.4 % Normal 0.0-2.0 [facility] Comment on above: Performed By: #### L [id number] ####Job Service Consultant: PHILLY FRANCO ([phone])[facility])[address] [place] [address] IMMATURE GRANS ABSOLUTE 0.0 10*3/uL Normal <0.1 [facility] Comment on above: Performed By: #### L [id number] ####Job Service Consultant: PHILLY FRANCO ([phone])[facility])[address] [place] [address] Lymphocytes (Bld) [#/Vol] 1.4 10*3/uL Normal 1.0-4.3 [facility] Comment on above: Performed By: #### L [id number] ####Job Service Consultant: PHILLY FRANCO ([phone])[facility])[address] [place] [address] [place] Lymphocytes/100 WBC (Bld) 14.1 % Low 15.0-45.0 [facility] Comment on above: Performed By: #### L [id number] ####Job Service Consultant: PHILLY FRANCO ([phone])[facility])[address] [place] [address] MCH (RBC) [Entitic mass] 29.1 pg Normal 26.0-34.0 [facility] Comment on above: Performed By: #### L [id number] ####Job Service Consultant: PHILLY FRANCO ([phone])[facility])[address] [place] [address] MCHC 31.5 % Normal 30.5-36.0 [facility] Comment on above: Performed By: #### L [id number] ####Job Service Consultant: PHILLY FRANCO ([phone])[facility])[address] [place] [address] MCV (RBC) [Entitic vol] 92.4 fL Normal 77.0-99.0 [facility] Comment on above: Performed By: #### L [id number] ####Job Service Consultant: PHILLY FRANCO ([phone])[facility])[address] [place] [address] Monocytes (Bld) [#/Vol] 0.7 10*3/uL Normal 0.0-0.9 [facility] Comment on above: Performed By: #### L [id number] ####Job Service Consultant: PHILLY FRANCO ([phone])[facility])[address] [place] [address] Monocytes/100 WBC (Bld) 7.0 % Normal 5.0-13.0 [facility] Comment on above: Performed By: #### L [id number] ####Job Service Consultant: PHILLY FRANCO ([phone])[facility])[address] [place] [address] NEUTROPHILS ABSOLUTE 7.6 10*3/uL High 1.8-7.5 [facility] Comment on above: Performed By: #### L [id number] ####Job Service Consultant: PHILLY FRANCO ([phone])[facility] ([facility])[address] [place] [address] Neutrophils/100 WBC (Bld) 74.6 % Normal 38.0-82.0 [facility] Comment on above: Performed By: #### L [id number] ####Job Service Consultant: PHILLY FRANCO ([phone])[facility])[address] [place] [address] NRBC 0.0 /100 WBCs Normal 0.0-2.0 [facility] Comment on above: Performed By: #### L [id number] ####Job Service Consultant: PHILLY FRANCO ([phone])[facility])[address] [place] [address] Platelet mean volume (Bld) [Entitic vol] 10.3 fL Normal 9.0-12.7 [facility] Comment on above: Performed By: #### L [id number] ####Job Service Consultant: PHILLY FRANCO ([phone])[facility] ([facility])[address] [place] [address] Platelets (Bld) [#/Vol] 293 10*3/uL Normal 140-440 [facility] Comment on above: Performed By: #### L [id number] ####Job Service Consultant: PHILLY FRANCO ([phone])[facility])[address] [place] [address] RBC (Bld) [#/Vol] 2.51 10*6/uL Low 3.80-5.20 [facility] Comment on above: Performed By: #### L [id number] ####Job Service Consultant: PHILLY FRANCO ([phone])[facility])[address] [place] [address] WBC (Bld) [#/Vol] 10.2 10*3/uL Normal 3.6-10.7 [facility] Comment on above: Performed By: #### L [id number] ####Job Service Consultant: PHILLY FRANCO ([phone])[facility] [place] [address] COMPREHENSIVE METABOLIC PANE Fam 12-10-2024 Albumin [Mass/Vol] 1.4 g/dL Low 3.4-4.8 [facility] Comment on above: Performed By: #### L [id number], LAB17 ####Job Service Consultant: PHILLY FRANCO ([phone])[facility] ([facility])[address] [place] [address] ALP [Catalytic activity/Vol] 125 U/L Normal 40-150 [facility] Comment on above: Performed By: #### L [id number], LAB17 ####Job Service Consultant: PHILLY FRANCO ([phone])[facility] ([facility])[address] [place] [address] ALT [Catalytic activity/Vol] 11 U/L Normal <30 [facility] Comment on above: Performed By: #### Jose KENDALL, LAB17 ####Job Service Consultant: PHILLY FRANCO ([phone])[facility] ([facility])[address] [place] [address] Anion gap [Moles/Vol] 10 mmol/L Normal 3-13 [facility] Comment on above: Performed By: #### L [id number], LAB17 ####Job Service Consultant: PHILLY FRANCO ([phone])[facility] ([facility])[address] [place] [address] AST [Catalytic activity/Vol] 36 U/L High <34 [facility] Comment on above: Performed By: #### L [id number], LAB17 ####Job Service Consultant: PHILLY FRANCO ([phone])[facility] ([facility])[address] [place] [address] [place] Bilirubin [Mass/Vol] 0.4 mg/dL Normal <1.2 [facility] Comment on above: Performed By: #### L [id number], LAB17 ####Job Service Consultant: PHILLY FRANCO ([phone])[facility] ([facility])[address] [place] [address] Calcium [Mass/Vol] 7.5 mg/dL Low 8.8-10.0 [facility] Comment on above: Performed By: #### L [id number], LAB17 ####Job Service Consultant: PHILLY FRANCO ([phone])[facility] ([facility])[address] [place] [address] Chloride [Moles/Vol] 99 mmol/L Normal 98-107 [facility] Comment on above: Performed By: #### L [id number], LAB17 ####Job Service Consultant: PHILLY FRANCO ([phone])[facility] [place] [address] [place] CO2 [Moles/Vol] 26 mmol/L Normal 23-31 [facility] Comment on above: Performed By: #### L [id number], LAB17 ####Job Service Consultant: PHILLY FRANCO ([phone])[facility] ([facility])[address] [place] [address] Creatinine [Mass/Vol] 4.24 mg/dL High 0.57-1.11 [facility] Comment on above: Performed By: #### L AB103, LAB17 ####Job Service Consultant: PHILLY FRANCO ([phone])[facility] ([facility])[address] [place] [address] GLOMERULAR FILTRATION RATE ML/MIN/1.73 SQ M.PREDICTED 10.5 mL/min/1.73m*2 Low >60.0 [facility] Comment on above: Result Comment: Calc ulation based on the Chronic Kidney Disease Epidemiology Collaboration (CKD-EPI) equation refit without adjustment for race Performed By: #### L AB103, LAB17 ####Job Service Consultant: PHILLY FRANCO ([phone])[facility] ([facility])[address] [place] [address] [place] Glucose [Mass/Vol] 74 mg/dL Low 82-115 [facility] Comment on above: Performed By: #### L AB103, LAB17 ####Job Service Consultant: PHILLY FRANCO ([phone])[facility] ([facility])[address] [place] [address] [place] Potassium [Moles/Vol] 3.4 mmol/L Low 3.5-5.1 [facility] Comment on above: Result Comment: [facility] potassium values may be up to 0.5 mmol/L lower than serum values. Performed By: #### L AB103, LAB17 ####Job Service Consultant: PHILLY FRANCO ([phone])[facility] ([facility])[address] [place] [address] Protein [Mass/Vol] 5.7 g/dL Low 6.4-8.3 [facility] Comment on above: Performed By: #### L AB103, LAB17 ####Job Service Consultant: PHILLY FRANCO ([phone])[facility] ([facility])[address] [place] [address] Sodium [Moles/Vol] 135 mmol/L Low 136-145 [facility] Comment on above: Performed By: #### L [id number], LAB17 ####Job Service Consultant: PHILLY FRANCO ([phone])[facility] ([facility])[address] [place] [address] Urea nitrogen [Mass/Vol] 25 mg/dL High 9-23 [facility] Comment on above: Performed By: #### L AB103, LAB17 ####Job Service Consultant: PHILLY FRANCO ([phone])[facility])[address] [place] [address] Comprehensive metabolic 1998 panelon 12-10-2024 Albumin [Mass/Vol] 1.4 g/dL Low 3.4 - 4.8 g/dL [facility] ALP [Catalytic activity/Vol] 125 U/L 40 - 150 U/L [facility] ALT [Catalytic activity/Vol] 11 U/L NINF - 30 U/L [facility] Anion gap [Moles/Vol] 10 mmol/L 3 - 13 mmol/L [facility] AST [Catalytic activity/Vol] 36 U/L High NINF - 34 U/L [facility] Bilirubin [Mass/Vol] 0.4 mg/dL NINF - 1.2 mg/dL [facility] Calcium [Mass/Vol] 7.5 mg/dL Low 8.8 - 10. 0 mg/dL [facility] Chloride [Moles/Vol] 99 mmol/L 98 - 10 7 mmol/L [facility] CO2 [Moles/Vol] 26 mmol/L 23 - 31 mmol/L [facility] Creatinine [Mass/Vol] 4.24 mg/dL High 0.57 - 1.11 mg/dL [facility] GFR/1.73 sq M.predicted (S/P/Bld) [Vol rate/Area] 10.5 mL/min Low - PINF [facility] Glucose [Mass/Vol] 74 mg/dL Low 82 - 115 mg/dL [facility] Interpretation and review of laboratory results Abnormal [facility] Potassium [Moles/Vol] 3.4 mmol/L Low 3.5 - 5.1 mmol/L [facility] Protein [Mass/Vol] 5.7 g/dL Low 6.4 - 8.3 g/dL [facility] Sodium [Moles/Vol] 135 mmol/L Low 136 - 145 mmol/L [facility] Urea nitrogen [Mass/Vol] 25 mg/dL High 9 - 23 mg/dL [facility] Consulton 12-10-2024 Consult Normal [facility] Laboratory - Chemistry and C hemistry - challengeon 12-10-2024 Magnesium [Mass/Vol] 1.8 mg/dL 1.6 - 2 .6 mg/dL [facility] MAGNESIUMon 12-10-2024 Magnesium [Mass/Vol] 1.8 mg/dL Normal 1.6-2.6 [facility] Comment on above: Result Comment: GUERO Amanda COMMENTS:Higher values can be expected in females during menses. Performed By: #### L AB103, LAB17 ####Job Service Consultant: PHILLY FRANCO ([phone])[facility] ([facility] Magnesium [Mass/Vol]on 12-10 Interpretation and review of laboratory results Normal [facility] Nursing Noteon 12-10-2024 Nursing Note Unable to give IV antibiotic at this time due to occluded IV site. Was unsuccessful to place new IV so I called RR team to come place one. 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 Normal [facility] Progress Noteon 12-10-2024 Progress Note Normal [facility] Progress Note Normal [facility] CBC W Auto Differential pane l (Bld)on 12-09-2024 Basophils (Bld) [#/Vol] 0.1 10*3/uL 0.0 - 0.2 10*3/uL [facility] Basophils/100 WBC (Bld) 1.1 % 0.0 - 2.0 % [facility] Eosinophils (Bld) [#/Vol] 0.2 10*3/uL 0.0 - 0.5 10*3/uL [facility] Eosinophils/100 WBC (Bld) 2.3 % 0.0 - 6.0 % [facility] Erythrocyte distribution width (RBC) [Ratio] 18.7 % High 11.5 - 15.0 % [facility] Hematocrit (Bld) [Volume fraction] 23.5 % Low 35.0 - 47.0 % [facility] Hemoglobin (Bld) [Mass/Vol] 7.6 g/dL Low 11.7 - 16.0 g/dL [facility] Immature granulocytes (Bld) [#/Vol] 0 10*3/uL NINF - 0.1 10*3/uL [facility] Immature granulocytes/100 WBC (Bld) 0.2 % 0.0 - 2.0 % [facility] Interpretation and review of laboratory results Abnormal [facility] Lymphocytes (Bld) [#/Vol] 1.2 10*3/uL 1.0 - 4.3 10*3/uL [facility] Lymphocytes/100 WBC (Bld) 12.8 % Low 15.0 - 45.0 % [facility] MCH (RBC) [Entitic mass] 29.7 pg 26.0 - 34.0 pg [facility] MCHC (RBC) [Mass/Vol] 32.3 % 30.5 - 36.0 % [facility] MCV (RBC) [Entitic vol] 91.8 fL 77.0 - 99.0 fL [facility] Monocytes (Bld) [#/Vol] 0.8 10*3/uL 0.0 - 0.9 10*3/uL [facility] Monocytes/100 WBC (Bld) 7.8 % 5.0 - 13.0 % [facility] Neutrophils (Bld) [#/Vol] 7.4 10*3/uL 1.8 - 7.5 10*3/uL [facility] Neutrophils/100 WBC (Bld) 75.8 % 38.0 - 82.0 % [facility] Nucleated RBC/100 WBC (Bld) [Ratio] 0 % [facility] Platelet mean volume (Bld) [Entitic vol] 10.3 fL 9.0 - 12.7 fL [facility] Platelets (Bld) [#/Vol] 311 10*3/uL 140 - 440 10*3/uL [facility] RBC (Bld) [#/Vol] 2.56 10*6/uL Low 3.80 - 5.2 0 10*6/uL [facility] WBC (Bld) [#/Vol] 9.7 10*3/uL 3.6 - 10.7 10*3/uL [facility] CBC WITH AUTO DIFFERENTIALon 12-09-2024 Basophils (Bld) [#/Vol] 0.1 10*3/uL Normal 0.0-0.2 [facility] Comment on above: Performed By: #### L [id number] ####Job Service Consultant: PHILLY FRANCO ([phone])[facility])[address] [place] [address] Basophils/100 WBC (Bld) 1.1 % Normal 0.0-2.0 [facility] Comment on above: Performed By: #### L [id number] ####Job Service Consultant: PHILLY FRANCO ([phone])[facility])[address] [place] [address] Eosinophils (Bld) [#/Vol] 0.2 10*3/uL Normal 0.0-0.5 [facility] Comment on above: Performed By: #### L [id number] ####Job Service Consultant: PHILLY FRANCO ([phone])[facility])[address] [place] [address] Eosinophils/100 WBC (Bld) 2.3 % Normal 0.0-6.0 [facility] Comment on above: Performed By: #### L [id number] ####Job Service Consultant: PHILLY FRANCO ([phone])[facility])[address] [place] [address] [place] Erythrocyte distribution width (RBC) [Ratio] 18.7 % High 11.5-15.0 [facility] Comment on above: Performed By: #### L [id number] ####Job Service Consultant: PHILLY FRANCO ([phone])[facility])[address] [place] [address] Hematocrit (Bld) [Volume fraction] 23.5 % Low 35.0-47.0 [facility] Comment on above: Performed By: #### L [id number] ####Job Service Consultant: PHILLY FRANCO ([phone])[facility])[address] [place] [address] Hemoglobin (Bld) [Mass/Vol] 7.6 g/dL Low 11.7-16.0 [facility] Comment on above: Performed By: #### L [id number] ####Job Service Consultant: PHILLY FRANCO ([phone])[facility])[address] [place] [address] IMMATURE GRANS % 0.2 % Normal 0.0-2.0 [facility] Comment on above: Performed By: #### L [id number] ####Job Service Consultant: PHILLY FRANCO ([phone])[address] IMMATURE GRANS ABSOLUTE 0.0 10*3/uL Normal <0.1 [facility] Comment on above: Performed By: #### L [id number] ####Job Service Consultant: HPILLY FRANCO ([phone])[facility])[address] [place] [address] Lymphocytes (Bld) [#/Vol] 1.2 10*3/uL Normal 1.0-4.3 [facility] Comment on above: Performed By: #### L [id number] ####Job Service Consultant: PHILLY FRANCO ([phone])[facility])[address] [place] [address] [place] Lymphocytes/100 WBC (Bld) 12.8 % Low 15.0-45.0 [facility] Comment on above: Performed By: #### L [id number] ####Job Service Consultant: PHILLY FRANCO ([phone])[facility])[address] [place] [address] MCH (RBC) [Entitic mass] 29.7 pg Normal 26.0-34.0 [facility] Comment on above: Performed By: #### L [id number] ####Job Service Consultant: PHILLY FRANCO ([phone])[facility])[address] [place] [address] MCHC 32.3 % Normal 30.5-36.0 [facility] Comment on above: Performed By: #### L [id number] ####Job Service Consultant: PHILLY FRANCO ([phone])[facility])[address] [place] [address] MCV (RBC) [Entitic vol] 91.8 fL Normal 77.0-99.0 [facility] Comment on above: Performed By: #### L [id number] ####Job Service Consultant: PHILLY FRANCO ([phone])[facility])[address] [place] [address] Monocytes (Bld) [#/Vol] 0.8 10*3/uL Normal 0.0-0.9 [facility] Comment on above: Performed By: #### L [id number] ####Job Service Consultant: PHILLY FRANCO ([phone])[facility])[address] [place] [address] Monocytes/100 WBC (Bld) 7.8 % Normal 5.0-13.0 [facility] Comment on above: Performed By: #### L [id number] ####Job Service Consultant: PHILLY FRANCO ([phone])[address] NEUTROPHILS ABSOLUTE 7.4 10*3/uL Normal 1.8-7.5 [facility] Comment on above: Performed By: #### L [id number] ####Job Service Consultant: PHILLY FRANCO ([phone])[facility])[address] [place] [address] Neutrophils/100 WBC (Bld) 75.8 % Normal 38.0-82.0 [facility] Comment on above: Performed By: #### L [id number] ####Job Service Consultant: PHILLY FRANCO ([phone])[facility] ([facility])[address] [place] [address] NRBC 0.0 /100 WBCs Normal 0.0-2.0 [facility] Comment on above: Performed By: #### L [id number] ####Job Service Consultant: PHILLY FRANCO ([phone])[facility])[address] [place] [address] Platelet mean volume (Bld) [Entitic vol] 10.3 fL Normal 9.0-12.7 [facility] Comment on above: Performed By: #### L [id number] ####Job Service Consultant: PHILLY FRANCO ([phone])[facility] ([facility])[address] [place] [address] Platelets (Bld) [#/Vol] 311 10*3/uL Normal 140-440 [facility] Comment on above: Performed By: #### L [id number] ####Job Service Consultant: PHILLY FRANCO ([id number])[facility] ([facility])[address] [place] [address] RBC (Bld) [#/Vol] 2.56 10*6/uL Low 3.80-5.20 [facility] Comment on above: Performed By: #### L [id number] ####Job Service Consultant: PHILLY FRANCO ([phone])[facility] ([facility])[address] [place] [address] [place] WBC (Bld) [#/Vol] 9.7 10*3/uL Normal 3.6-10.7 [facility] Comment on above: Performed By: #### L [id number] ####Job Service Consultant: PHILLY FRANCO ([phone])[facility] ([facility])[address] [place] [address] [place] Consulton 12-09-2024 Consult Normal [facility] ED Nursing Noteon 12-09-2024 ED Nursing Note IV re established an d blood reconnected to complete infusion Normal [facility] ED Nursing Note US IV nurse called away to trauma. Will re attempt when able Normal [facility] ED Nursing Note Patient placed in hospital bed for comfort while awaiting inpatient room assignment. While removing old bed from room patient IV tubing got caught and IV was displaced. Blood product placed on hold at this time until new US IV can be established. Normal [facility] Laboratory - Chemistry and C hemistry - challengeon 12-09-2024 Albumin [Mass/Vol] 1.5 g/dL Low 3.4 - 4.8 g/dL [facility] Anion gap [Moles/Vol] 8 mmol/L 3 - 13 mmol/L [facility] Calcium [Mass/Vol] 7.6 mg/dL Low 8.8 - 10. 0 mg/dL [facility] Chloride [Moles/Vol] 96 mmol/L Low 98 - 10 7 mmol/L [facility] CO2 [Moles/Vol] 32 mmol/L High 23 - 31 mmol/L [facility] Creatinine [Mass/Vol] 3.73 mg/dL High 0.57 - 1.11 mg/dL [facility] GFR/1.73 sq M.predicted (S/P/Bld) [Vol rate/Area] 12.2 mL/min Low - PINF [facility] Glucose [Mass/Vol] 79 mg/dL Low 82 - 115 mg/dL [facility] Phosphate [Mass/Vol] 1.7 mg/dL Low 2.3 - 4 .7 mg/dL [facility] Potassium [Moles/Vol] 3.1 mmol/L Low 3.5 - 5.1 mmol/L [facility] Sodium [Moles/Vol] 136 mmol/L 136 - 145 mmol/L [facility] Urea nitrogen [Mass/Vol] 19 mg/dL 9 - 23 mg/dL [facility] No Panel Informationon 12-09 Interpretation and review of laboratory results Abnormal [facility] Blood Expiration Date [id number] [facility] Crossmatch interpretation COMP [facility] Dispense Status Transfused [facility] [employer] Product Blood Type 5100 [facility] PRODUCT CODE [id number] [facility] Unit ABO O [facility] Unit Number [id number] [facility] RH Positive [facility] Unit Volume 300 mL [facility] Nursing Noteon 12-09-2024 Nursing Note Pt states she would like to return [facility] at discharge Normal [facility] Progress Noteon 12-09-2024 Progress Note 2nd attempt for MRI with meds patient still refusing exam Normal [facility] Progress Note Normal [facility] Progress Note Pt attempted MRI but could not complete the exam. Patient refusing to continue exam. Normal [facility] Progress Note OCCUPATIONAL THERAPY [facility] Name/MRN: Apoorva Gonzalez ([id number]) Date: 12/09/2024 OT orders received and chart reviewed. MRI pending c-spine for r/o discitis, will await results prior to initiating OT eval. Jelly Fischer, OT Normal [facility] Progress Note Normal [facility] Progress Note Normal [facility] RENAL FUNCTION PANELon 12-09 Albumin [Mass/Vol] 1.5 g/dL Low 3.4-4.8 [facility] Comment on above: Performed By: #### L [id number] ####Job Service Consultant: PHILLY FRANCO ([phone])[address] Anion gap [Moles/Vol] 8 mmol/L Normal 3-13 [facility] Comment on above: Performed By: #### L [id number] ####Job Service Consultant: PHILLY FRANCO ([phone])[facility])[address] [place] [address] Calcium [Mass/Vol] 7.6 mg/dL Low 8.8-10.0 [facility] Comment on above: Performed By: #### L [id number] ####Job Service Consultant: PHILLY FRANCO ([phone])[address] Chloride [Moles/Vol] 96 mmol/L Low 98-107 [facility] Comment on above: Performed By: #### L [id number] ####Job Service Consultant: PHILLY FRANCO ([phone])[facility] ([facility])[address] [place] [address] CO2 [Moles/Vol] 32 mmol/L High 23-31 [facility] Comment on above: Performed By: #### L [id number] ####Job Service Consultant: PHILLY FRANCO ([phone])[facility])[address] [place] [address] Creatinine [Mass/Vol] 3.73 mg/dL High 0.57-1.11 [facility] Comment on above: Performed By: #### L [id number] ####Job Service Consultant: PHILLY FRANCO ([phone])[facility])[address] [place] [address] GLOMERULAR FILTRATION RATE ML/MIN/1.73 SQ M.PREDICTED 12.2 mL/min/1.73m*2 Low >60.0 [facility] Comment on above: Result Comment: Calc ulation based on the Chronic Kidney Disease Epidemiology Collaboration (CKD-EPI) equation refit without adjustment for race Performed By: #### L [id number] ####Job Service Consultant: PHILLY FRANCO ([phone])[facility] ([facility])[address] [place] [address] Glucose [Mass/Vol] 79 mg/dL Low 82-115 [facility] Comment on above: Performed By: #### L [id number] ####Job Service Consultant: PHLILY FRANCO ([phone])[facility])[address] [place] [address] [place] Phosphate [Mass/Vol] 1.7 mg/dL Low 2.3-4.7 [facility] Comment on above: Performed By: #### L [id number] ####Job Service Consultant: PHILLY FRANCO ([phone])[facility])[address] [place] [address] Potassium [Moles/Vol] 3.1 mmol/L Low 3.5-5.1 [facility] Comment on above: Result Comment: [facility] potassium values may be up to 0.5 mmol/L lower than serum values. Performed By: #### L [id number] ####Job Service Consultant: PHILLY FRANCO ([phone])[facility] ([facility])[address] [place] [address] Sodium [Moles/Vol] 136 mmol/L Normal 136-145 [facility] Comment on above: Performed By: #### L [id number] ####Job Service Consultant: PHILLY FRANCO ([phone])[facility] ([facility])[address] [place] [address] Urea nitrogen [Mass/Vol] 19 mg/dL Normal 9-23 [facility] Comment on above: Performed By: #### L [id number] ####Job Service Consultant: PHILLY FRANCO ([phone])[facility] ([facility])[address] [place] [address] XR Hip - left 3 [employer]son [facility] RADIOLOGY [facility] Radiology Study observation (narrative) [facility] XR Hip - left 3 ViewsOrdered By: Honorio Grande on 12-09-2024 [facility] Work Phone: BLOOD TYPE AND SCREEN GELon 12-08-2024 ABO GROUPING O Normal [facility] Comment on above: Performed By: #### L [id number] ####Job Service Consultant: PHILLY FRANCO ([phone])[facility] ([facility])[address] [place] [address] RH TYPE IN BLOOD Positive Normal [facility] Comment on above: Performed By: #### L [id number] ####Job Service Consultant: PHILLY FRANCO ([phone])[facility] ([facility])[address] [place] [address] Blood type and Crossmatch pa kojo (Bld)on 12-08-2024 ABO group Nom (Bld) O [facility] Blood group antibody screen GEL Ql Negative [facility] D Ag Ql (RBC) Positive [facility] CBC W Auto Differential pane l (Bld)Ordered By: Rimma [place] on 12-08-2024 Basophils (Bld) [#/Vol] 0.1 10*3/uL 0.0 - 0.2 10*3/uL [facility] Basophils/100 WBC (Bld) 0.8 % 0.0 - 2.0 % [facility] Eosinophils (Bld) [#/Vol] 0.1 10*3/uL 0.0 - 0.5 10*3/uL [facility] Eosinophils/100 WBC (Bld) 0.9 % 0.0 - 6.0 % [facility] Erythrocyte distribution width (RBC) [Ratio] 18.4 % High 11.5 - 15.0 % [facility] Hematocrit (Bld) [Volume fraction] 20.9 % Low 35.0 - 47.0 % [facility] Hemoglobin (Bld) [Mass/Vol] 6.9 g/dL Critically low 11.7 - 16.0 g/dL [facility] Immature granulocytes (Bld) [#/Vol] 0.1 10*3/uL High NINF - 0.1 10*3/uL [facility] Immature granulocytes/100 WBC (Bld) 0.4 % 0.0 - 2.0 % [facility] Interpretation and review of laboratory results Abnormal [facility] Lymphocytes (Bld) [#/Vol] 0.8 10*3/uL Low 1.0 - 4.3 10*3/uL [facility] Lymphocytes/100 WBC (Bld) 7.4 % Low 15.0 - 45.0 % [facility] MCH (RBC) [Entitic mass] 30.5 pg 26.0 - 34.0 pg [facility] MCHC (RBC) [Mass/Vol] 33 % 30.5 - 36.0 % [facility] MCV (RBC) [Entitic vol] 92.5 fL 77.0 - 99.0 fL [facility] Monocytes (Bld) [#/Vol] 0.6 10*3/uL 0.0 - 0.9 10*3/uL [facility] Monocytes/100 WBC (Bld) 4.9 % Low 5.0 - 13.0 % [facility] Neutrophils (Bld) [#/Vol] 9.6 10*3/uL High 1.8 - 7.5 10*3/uL [facility] Neutrophils/100 WBC (Bld) 85.6 % High 38.0 - 82.0 % [facility] Nucleated RBC/100 WBC (Bld) [Ratio] 0 % [facility] Platelet mean volume (Bld) [Entitic vol] 10.1 fL 9.0 - 12.7 fL [facility] Platelets (Bld) [#/Vol] 359 10*3/uL 140 - 440 10*3/uL [facility] RBC (Bld) [#/Vol] 2.26 10*6/uL Low 3.80 - 5.2 0 10*6/uL [facility] WBC (Bld) [#/Vol] 11.2 10*3/uL High 3.6 - 10.7 10*3/uL [facility] CBC WITH AUTO DIFFERENTIALon 12-08-2024 Basophils (Bld) [#/Vol] 0.1 10*3/uL Normal 0.0-0.2 [facility] Comment on above: Performed By: #### L [id number] ####Job Service Consultant: PHILLY FRANCO ([phone])[facility])[address] [place] [address] Basophils/100 WBC (Bld) 0.8 % Normal 0.0-2.0 [facility] Comment on above: Performed By: #### L [id number] ####Job Service Consultant: PHILLY FRANCO ([phone])[facility])[address] [place] [address] Eosinophils (Bld) [#/Vol] 0.1 10*3/uL Normal 0.0-0.5 [facility] Comment on above: Performed By: #### L [id number] ####Job Service Consultant: PHILLY FRANCO ([phone])[facility])[address] [place] [address] Eosinophils/100 WBC (Bld) 0.9 % Normal 0.0-6.0 [facility] Comment on above: Performed By: #### L [id number] ####Job Service Consultant: PHILLY FRANCO ([phone])[facility])[address] [place] [address] Erythrocyte distribution width (RBC) [Ratio] 18.4 % High 11.5-15.0 [facility] Comment on above: Performed By: #### L [id number] ####Job Service Consultant: PHILLY FRANCO ([phone])[facility])[address] [place] [address] Hematocrit (Bld) [Volume fraction] 20.9 % Low 35.0-47.0 [facility] Comment on above: Performed By: #### L [id number] ####Job Service Consultant: PHILLY FRANCO ([phone])[facility])[address] [place] [address] Hemoglobin (Bld) [Mass/Vol] 6.9 g/dL Critically low 11.7-16.0 [facility] Comment on above: Performed By: #### L [id number] ####Job Service Consultant: PIHLLY FRANCO ([phone])[facility])[address] [place] [address] IMMATURE GRANS % 0.4 % Normal 0.0-2.0 [facility] Comment on above: Performed By: #### L [id number] ####Job Service Consultant: PHILLY FRANCO ([phone])[facility])[address] [place] [address] IMMATURE GRANS ABSOLUTE 0.1 10*3/uL High <0.1 [facility] Comment on above: Performed By: #### L [id number] ####Job Service Consultant: PHILLY FRANCO ([phone])[facility])[address] [place] [address] Lymphocytes (Bld) [#/Vol] 0.8 10*3/uL Low 1.0-4.3 [facility] Comment on above: Performed By: #### L [id number] ####Job Service Consultant: PHILLY FRANCO ([phone])[facility])[address] [place] [address] [place] Lymphocytes/100 WBC (Bld) 7.4 % Low 15.0-45.0 [facility] Comment on above: Performed By: #### L [id number] ####Job Service Consultant: PHILLY FRANCO ([phone])[facility])[address] [place] [address] MCH (RBC) [Entitic mass] 30.5 pg Normal 26.0-34.0 [facility] Comment on above: Performed By: #### L [id number] ####Job Service Consultant: PHILLY FRANCO ([phone])[facility])[address] [place] [address] MCHC 33.0 % Normal 30.5-36.0 [facility] Comment on above: Performed By: #### L [id number] ####Job Service Consultant: PHILLY FRANCO ([phone])[facility])[address] [place] [address] MCV (RBC) [Entitic vol] 92.5 fL Normal 77.0-99.0 [facility] Comment on above: Performed By: #### L [id number] ####Job Service Consultant: PHILLY FRANCO ([id number])[facility])[address] [place] [address] Monocytes (Bld) [#/Vol] 0.6 10*3/uL Normal 0.0-0.9 [facility] Comment on above: Performed By: #### L [id number] ####Job Service Consultant: PHILLY FRANCO ([phone])[facility])[address] [place] [address] Monocytes/100 WBC (Bld) 4.9 % Low 5.0-13.0 [facility] Comment on above: Performed By: #### L [id number] ####Job Service Consultant: PHILLY FRANCO ([phone])[facility])[address] [place] [address] NEUTROPHILS ABSOLUTE 9.6 10*3/uL High 1.8-7.5 [facility] Comment on above: Performed By: #### L [id number] ####Job Service Consultant: PHILLY FRANCO ([phone])[facility])[address] [place] [address] Neutrophils/100 WBC (Bld) 85.6 % High 38.0-82.0 [facility] Comment on above: Performed By: #### L [id number] ####Job Service Consultant: PHILLY FRANCO ([phone])[facility] ([facility])[address] [place] [address] NRBC 0.0 /100 WBCs Normal 0.0-2.0 [facility] Comment on above: Performed By: #### L [id number] ####Job Service Consultant: PHILLY FRANCO ([phone])[facility] ([facility])[address] [place] [address] Platelet mean volume (Bld) [Entitic vol] 10.1 fL Normal 9.0-12.7 [facility] Comment on above: Performed By: #### L [id number] ####Job Service Consultant: PHILLY FRANCO ([id number])[facility] ([facility])[address] [place] [address] Platelets (Bld) [#/Vol] 359 10*3/uL Normal 140-440 [facility] Comment on above: Performed By: #### L [id number] ####Job Service Consultant: PHILLY FRANCO ([id number])[facility] ([facility])[address] [place] [address] RBC (Bld) [#/Vol] 2.26 10*6/uL Low 3.80-5.20 [facility] Comment on above: Performed By: #### L [id number] ####Job Service Consultant: PHILLY FRANCO ([phone])[facility] ([facility])[address] [place] [address] WBC (Bld) [#/Vol] 11.2 10*3/uL High 3.6-10.7 [facility] Comment on above: Performed By: #### L [id number] ####Job Service Consultant: PHILLY FRANCO ([id number])[facility])[address] [place] [address] COMPREHENSIVE METABOLIC PANE Fam 12-08-2024 Albumin [Mass/Vol] 1.6 g/dL Low 3.4-4.8 [facility] Comment on above: Performed By: #### L [id number] ####Job Service Consultant: PHILLY FRANCO ([phone])[facility] ([facility])[address] [place] [address] ALP [Catalytic activity/Vol] 166 U/L High 40-150 [facility] Comment on above: Performed By: #### L [id number] ####Job Service Consultant: PHILLY FRANCO ([phone])[facility] ([facility])[address] [place] [address] [place] ALT [Catalytic activity/Vol] 14 U/L Normal <30 [facility] Comment on above: Performed By: #### L [id number] ####Job Service Consultant: PHILLY FRANCO ([phone])[facility] ([facility])[address] [place] [address] Anion gap [Moles/Vol] 11 mmol/L Normal 3-13 [facility] Comment on above: Performed By: #### L [id number] ####Job Service Consultant: PHILLY FRANCO ([phone])[facility] ([facility])[address] [place] [address] AST [Catalytic activity/Vol] 46 U/L High <34 [facility] Comment on above: Performed By: #### L [id number] ####Job Service Consultant: PHILLY FRANCO ([phone])[facility] ([facility])[address] [place] [address] Bilirubin [Mass/Vol] 0.4 mg/dL Normal <1.2 [facility] Comment on above: Performed By: #### L [id number] ####Job Service Consultant: PHILLY FRANCO ([phone])[facility] ([facility])[address] [place] [address] Calcium [Mass/Vol] 8.1 mg/dL Low 8.8-10.0 [facility] Comment on above: Performed By: #### L [id number] ####Job Service Consultant: PHILLY FRANCO ([phone])[facility] ([facility])[address] [place] [address] [place] Chloride [Moles/Vol] 94 mmol/L Low 98-107 [facility] Comment on above: Performed By: #### L [id number] ####Job Service Consultant: PHILLY FRANCO ([phone])[facility])[address] [place] [address] CO2 [Moles/Vol] 30 mmol/L Normal 23-31 [facility] Comment on above: Performed By: #### L [id number] ####Job Service Consultant: PHILLY FRANCO ([phone])[facility])[address] [place] [address] Creatinine [Mass/Vol] 3.05 mg/dL High 0.57-1.11 [facility] Comment on above: Performed By: #### L [id number] ####Job Service Consultant: PHILLY FRANCO ([phone])[address] GLOMERULAR FILTRATION RATE ML/MIN/1.73 SQ M.PREDICTED 15.5 mL/min/1.73m*2 Low >60.0 [facility] Comment on above: Result Comment: Calc ulation based on the Chronic Kidney Disease Epidemiology Collaboration (CKD-EPI) equation refit without adjustment for race Performed By: #### L [id number] ####Job Service Consultant: PHILLY FRANCO ([id number])[address] Glucose [Mass/Vol] 101 mg/dL Normal 82-115 [facility] Comment on above: Performed By: #### L [id number] ####Job Service Consultant: PHILLY FRANCO ([phone])[facility])[address] [place] [address] Potassium [Moles/Vol] 2.6 mmol/L Critically low 3.5-5.1 [facility] Comment on above: Result Comment: [facility] potassium values may be up to 0.5 mmol/L lower than serum values. Performed By: #### L [id number] ####Job Service Consultant: PHILLY FRANCO ([phone])[facility])[address] [place] [address] Protein [Mass/Vol] 6.4 g/dL Normal 6.4-8.3 [facility] Comment on above: Performed By: #### L [id number] ####Job Service Consultant: PHILLY FRANCO ([phone])[facility] ([facility])[address] [place] [address] Sodium [Moles/Vol] 135 mmol/L Low 136-145 [facility] Comment on above: Performed By: #### L [id number] ####Job Service Consultant: PHILLY FRANCO ([phone])[facility] ([facility])[address] [place] [address] Urea nitrogen [Mass/Vol] 17 mg/dL Normal 9-23 [facility] Comment on above: Performed By: #### L [id number] ####Job Service Consultant: PHILLY FRANCO ([phone])[facility] ([facility])[address] [place] [address] CT CERVICAL SPINE WO IV CONT RASTon 12-08-2024 CT CERVICAL SPINE WO IV CONTRAST Normal [facility] CT HEAD WO IV CONTRASTon CT HEAD WO IV CONTRAST Normal [facility] Comprehensive metabolic 1998 panelOrdered By: Brenda Means on 12-08-2024 Albumin [Mass/Vol] 1.6 g/dL Low 3.4 - 4.8 g/dL [facility] ALP [Catalytic activity/Vol] 166 U/L High 40 - 150 U/L [facility] ALT [Catalytic activity/Vol] 14 U/L NINF - 30 U/L [facility] Anion gap [Moles/Vol] 11 mmol/L 3 - 13 mmol/L [facility] AST [Catalytic activity/Vol] 46 U/L High NINF - 34 U/L [facility] Bilirubin [Mass/Vol] 0.4 mg/dL NINF - 1.2 mg/dL [facility] Calcium [Mass/Vol] 8.1 mg/dL Low 8.8 - 10. 0 mg/dL [facility] Chloride [Moles/Vol] 94 mmol/L Low 98 - 10 7 mmol/L [facility] CO2 [Moles/Vol] 30 mmol/L 23 - 31 mmol/L [facility] Creatinine [Mass/Vol] 3.05 mg/dL High 0.57 - 1.11 mg/dL [facility] [employer] GFR/1.73 sq M.predicted (S/P/Bld) [Vol rate/Area] 15.5 mL/min Low - PINF [facility] Glucose [Mass/Vol] 101 mg/dL 82 - 115 mg/dL [facility] Interpretation and review of laboratory results Abnormal [facility] Potassium [Moles/Vol] 2.6 mmol/L Critically low 3.5 - 5.1 mmol/L [facility] Protein [Mass/Vol] 6.4 g/dL 6.4 - 8.3 g/dL [facility] Sodium [Moles/Vol] 135 mmol/L Low 136 - 145 mmol/L [facility] Urea nitrogen [Mass/Vol] 17 mg/dL 9 - 23 mg/dL [facility] ED Nursing Noteon 12-08-2024 ED Nursing Note MRI screening completed at this time. Normal [facility] ED Provider Noteon ED Provider Note Normal [facility] No Panel Informationon 12-08 [facility] Radiology Study observation (narrative) [facility] [employer] No Panel InformationOrdered By: Norman Malin on 12-08-2024 [employer] Work Phone: No Panel InformationOrdered By: Mason Duran on 12-06-2024 Left antecubital vein depth 2.4 cm [employer] Phone: Left Antecutibal Vein Diam 1.1 mm [employer] Phone: Left Axillary Artery Diameter 0.77 cm [employer] Phone: Left Axillary Vein Diameter 5.3 mm [employer] Phone: Left Brachial A dist PSV 54.3 cm/s [employer] Phone: Left brachial artery distal diameter 0.57 cm [employer] Phone: Left Brachial Vein 1 Diam 1.9 mm [employer] Phone: Left Cephalic Vein Lower Arm Dist Diam 0.8 mm [employer] Phone: Left Cephalic Vein Lower Arm Mid [...] Radial A prox PSV 65.3 cm/s [facility] Work Phone: Left radial artery dist [...] Right Brachial A mid PSV 83.4 cm/s [facility] Work Phone: Right Brachial A prox PSV 85.8 cm/s [facility] Work Phone: Right brachial artery distal diameter 0.49 cm [facility] Work Phone: Right brachial artery mid diameter 0.49 cm [facility] Work Phone: Right brachial artery proximal diameter 0.55 cm [facility] Work Phone: Right Brachial Vein 1 Diam 3.2 mm [facility] Work Phone: Right Brachial Vein 2 Diam 2.6 mm [facility] Work Phone: Right Cephalic Vein Upper Arm Dist Diam 0.9 mm [facility] [employer] Work Phone: Right Cephalic Vein Upper Arm Mid Diam 0.5 mm [facility] [employer] Work Phone: [phone] Right Radial A dist PSV 76 cm/s [facility] [employer] Work Phone: Right Radial A mid PSV 82.1 cm/s [facility] Work Phone: Right Radial A prox PSV 88.3 cm/s S [facility] [employer] Work Phone: Right radial artery distal diameter 0.27 cm [facility] [employer] Work Phone: Right radial artery mid diameter 0.23 cm [facility] [employer] Work Phone: Right radial artery proximal diameter 0.23 cm [facility] Work Phone: Right Subclavian Vein Diameter 7.6 mm [facility] Work Phone: Right upper cephalic vein distal depth 2.2 cm [facility] Work Phone: Right upper cephalic vein mid depth 2.15 cm [facility] [employer] Work Phone: No Panel Informationon 12-06 Chronic [...] CPACS Progress Noteon 12-06-2024 Progress Note Normal [facility] CBC-Complete Blood Cnt No Di ffon 12-05-2024 Erythrocyte distribution width (RBC) [Ratio] 18.8 % High 11.6-14.6 [facility] Comment on above: Order Comment: 408.2 Performed By: #### L 100.8470, L100.0500 #### [facility] [address] [place], [address] Hematocrit (Bld) [Volume fraction] 22.4 % Low 37-47 [facility] Comment on above: Order Comment: 408.2 Performed By: #### L 100.4500, L100.0500 #### [facility] [address] [place], [address] Hemoglobin (Bld) [Mass/Vol] 7.2 g/dL Low 12.0-15.0 [facility] Comment on above: Order Comment: 408.2 Performed By: #### L 100.4500, L100.0500 #### [facility] [address] [place], [address] MCH (RBC) [Entitic mass] 30.4 pg Normal 27.0-32.0 [facility] Comment on above: Order Comment: 408.2 Performed By: #### L 100.4500, L100.0500 #### [facility] [address], [address] MCHC (RBC) [Mass/Vol] 32.1 g/dL Normal 32-36 [facility] Comment on above: Order Comment: 408.2 Performed By: #### L 100.4500, L100.0500 #### [facility] [address] [place], [address] MCV (RBC) [Entitic vol] 94.5 fL Normal 81-99 [facility] Comment on above: Order Comment: 408.2 Performed By: #### L 100.4500, L100.0500 #### [facility] [address] [place], [address] Platelet mean volume (Bld) [Entitic vol] 10.7 fL Normal 6.2-12.0 [facility] Comment on above: Order Comment: 408.2 Performed By: #### L 100.4500, L100.0500 #### [facility] [address] [place], [address] Platelets (Bld) [#/Vol] 395 10*3/uL Normal 150-450 [facility] Comment on above: Order Comment: 408.2 Performed By: #### L 100.4500, L100.0500 #### [facility] [address] [place], [address] RBC (Bld) [#/Vol] 2.37 10*6/uL Low 4.2-5.4 [facility] Comment on above: Order Comment: 408.2 Performed By: #### L 100.4500, L100.0500 #### [facility] [address] [place], [address] RDW SD 65.1 fl High 35.1-43.9 [facility] Comment on above: Order Comment: 408.2 Performed By: #### L 100.4500, L100.0500 #### [facility] [address] [place], [address] WBC (Bld) [#/Vol] 8.5 10*3/uL Normal 4.4-11.0 [facility] Comment on above: Order Comment: 408.2 Performed By: #### L 100.4500, L100.0500 #### [facility] [address] [place], [address] Differential Commenton 12-05 SMEAR COMMENT COMMENT Normal [facility] Comment on above: Order Comment: 408.2 Result Comment: 2+ A NISO. Performed By: #### L 100.4500, L100.0500 #### [facility] [address] [place], [address] CBC-Complete Blood Cnt No Di ffon 12-01-2024 HCT Normal 37-47 [facility] Comment on above: Order Comment: 408-2 Result Comment: This specimen has been REJECTED due to Laboratory criteria: Clotted. TIANNA RUIZ has been notified of need of recollection. 12/01/24 0856 Aaliyah Huber Performed By: #### L 100.0500 #### [facility] [address] [place], [address] HGB Normal 12.0-15.0 [facility] Comment on above: Order Comment: 408-2 Result Comment: This specimen has been REJECTED due to Laboratory criteria: Clotted. TIANNA RUIZ has been notified of need of recollection. 12/01/24 0856 Aaliyah Huber Performed By: #### L 100.0500 #### [facility] [address] [place], [address] MCH Normal 27.0-32.0 [facility] Comment on above: Order Comment: 408-2 Result Comment: This specimen has been REJECTED due to Laboratory criteria: Clotted. TIANNA RUIZ has been notified of need of recollection. 12/01/24 0856 Aaliyah Huber Performed By: #### L 100.0500 #### [facility] [address] [place], [address] MCHC Normal 32-36 [facility] Comment on above: Order Comment: 408-2 Result Comment: This specimen has been REJECTED due to Laboratory criteria: Clotted. TIANNA RUIZ has been notified of need of recollection. 12/01/24 0856 Aaliyah Huber Performed By: #### L 100.0500 #### [facility] [address] [facility] [address] MCV Normal 81-99 [facility] Comment on above: Order Comment: 408-2 Result Comment: This specimen has been REJECTED due to Laboratory criteria: Clotted. TIANNA RUIZ has been notified of need of recollection. 12/01/24 0856 Aaliyah Huber Performed By: #### L 100.0500 #### [facility] [address] [place], [address] PLT Normal 150-450 [facility] Comment on above: Order Comment: 408-2 Result Comment: This specimen has been REJECTED due to Laboratory criteria: Clotted. TIANNA RUIZ has been notified of need of recollection. 12/01/24 0856 Aaliyah Huber Performed By: #### L 100.0500 #### [facility] [address] [place], [address] RBC Normal 4.2-5.4 [facility] Comment on above: Order Comment: 408-2 Result Comment: This specimen has been REJECTED due to Laboratory criteria: Clotted. TIANNA RUIZ has been notified of need of recollection. 12/01/24 0856 Aaliyah Huber Performed By: #### L 100.0500 #### [facility] [address] [place], [address] RDW CV Normal 11.6-14.6 [facility] Comment on above: Order Comment: 408-2 Result Comment: This specimen has been REJECTED due to Laboratory criteria: Clotted. TIANNA RUIZ has been notified of need of recollection. 12/01/24 0856 Aaliyah Huber Performed By: #### L 100.0500 #### [facility] [address] [place], [address] RDW SD Normal 35.1-43.9 [facility] Comment on above: Order Comment: 408-2 Result Comment: This specimen has been REJECTED due to Laboratory criteria: Clotted. TIANNA RUIZ has been notified of need of recollection. 12/01/24 0856 Aaliyah Huber Performed By: #### L 100.0500 #### [facility] [address] [place], [address] WBC Normal 4.4-11.0 [facility] Comment on above: Order Comment: 408-2 Result Comment: This specimen has been REJECTED due to Laboratory criteria: Clotted. TIANNA RUIZ has been notified of need of recollection. 12/01/24 0856 Aaliyah Huber Performed By: #### L 100.0500 #### [facility] [address] [place], [address] CBC-Complete Blood Cnt No Di ffon 11-30-2024 Erythrocyte distribution width (RBC) [Ratio] 18.5 % High 11.6-14.6 [facility] Comment on above: Order Comment: 408.2 Performed By: #### L 100.0500 #### [facility] [address] [place], [address] Hematocrit (Bld) [Volume fraction] 21.7 % Low 37-47 [facility] Comment on above: Order Comment: 408.2 Performed By: #### L 100.0500 #### [facility] [address] [place], [address] Hemoglobin (Bld) [Mass/Vol] 6.9 g/dL Low 12.0-15.0 [facility] Comment on above: Order Comment: 408.2 Performed By: #### L 100.0500 #### [facility] [address] [place], [address] MCH (RBC) [Entitic mass] 29.9 pg Normal 27.0-32.0 [facility] Comment on above: Order Comment: 408.2 Performed By: #### L 100.0500 #### [facility] [address] [place], [address] MCHC (RBC) [Mass/Vol] 31.8 g/dL Low 32-36 [facility] Comment on above: Order Comment: 408.2 Performed By: #### L 100.0500 #### [facility] [address] [place], [address] MCV (RBC) [Entitic vol] 93.9 fL Normal 81-[address] [facility] Comment on above: Order Comment: 408.2 Performed By: #### L 100.0500 #### [facility] [address] [place], [address] Platelet mean volume (Bld) [Entitic vol] 10.5 fL Normal 6.2-12.0 [facility] Comment on above: Order Comment: 408.2 Performed By: #### L 100.0500 #### [facility] [address] [place], [address] Platelets (Bld) [#/Vol] 342 10*3/uL Normal 150-450 [facility] Comment on above: Order Comment: 408.2 Performed By: #### L 100.0500 #### [facility] [address] [place], [address] RBC (Bld) [#/Vol] 2.31 10*6/uL Low 4.2-5.4 [facility] Comment on above: Order Comment: 408.2 Performed By: #### L 100.0500 #### [facility] [address] [place], [address] RDW SD 63.3 fl High 35.1-43.9 [facility] Comment on above: Order Comment: 408.2 Performed By: #### L 100.0500 #### [facility] [address] [place], [address] WBC (Bld) [#/Vol] 7.0 10*3/uL Normal 4.4-11.0 [facility] Comment on above: Order Comment: 408.2 Performed By: #### L 100.0500 #### [facility] [address] [place], [address] Progress Noteon 11-27-2024 Progress Note Normal [facility] KEPPRA (LEVETIRACETAM)on KEPPRA 18.7 ug/mL Normal 10.0-40.0 [facility] Comment on above: Order Comment: 408-2 Result Comment: Perf ormed at: - [facility] [id number] Dressing 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: Scott Little MD, Phone: [phone] Performed By: #### L 3310.0000 #### [facility] [place], [address] BASIC METABOLIC PANELon 08-2 0-2024 Anion gap [Moles/Vol] 13 mmol/L Normal 3-13 [facility] Comment on above: Performed By: #### L AB15 ####Job Service Consultant: DEANN CURRAN ([phone])[facility] ([facility])[address] Calcium [Mass/Vol] 8.4 mg/dL Low 8.8-10.0 [facility] Comment on above: Performed By: #### L AB15 ####Job Service Consultant: DEANN CURRAN ([phone])[facility] ([facility])[address] Chloride [Moles/Vol] 94 mmol/L Low 98-107 [facility] Comment on above: Performed By: #### L AB15 ####Job Service Consultant: DEANN CURRAN ([phone])[facility] ([facility])[address] CO2 [Moles/Vol] 27 mmol/L Normal 23-31 [facility] Comment on above: Performed By: #### L AB15 ####Job Service Consultant: DEANN CURRAN ([phone])[facility] ([facility])[address] [place] [address] [place] Creatinine [Mass/Vol] 2.28 mg/dL High 0.57-1.11 [facility] Comment on above: Performed By: #### L AB15 ####Job Service Consultant: DEANN CURRAN ([phone])[facility] ([facility])[address] [place] [address] [place] GLOMERULAR FILTRATION RATE ML/MIN/1.73 SQ M.PREDICTED 22.0 mL/min/1.73m*2 Low >60.0 [facility] Comment on above: Result Comment: Calc ulation based on the Chronic Kidney Disease Epidemiology Collaboration (CKD-EPI) equation refit without adjustment for race Performed By: #### L AB15 ####Job Service Consultant: DEANN CURRAN ([phone])[facility] ([facility])[address] Glucose [Mass/Vol] 81 mg/dL Low 82-115 [facility] Comment on above: Performed By: #### L AB15 ####Job Service Consultant: DEANN CURRAN ([phone])[facility] ([facility])[address] Potassium [Moles/Vol] 3.1 mmol/L Low 3.5-5.1 [facility] Comment on above: Result Comment: [facility] potassium values may be up to 0.5 mmol/L lower than serum values. Performed By: #### L AB15 ####Job Service Consultant: DEANN CURRAN ([phone])[facility] ([facility])[address] Sodium [Moles/Vol] 134 mmol/L Low 136-145 [facility] Comment on above: Performed By: #### L AB15 ####Job Service Consultant: DEANN CURRAN ([phone])[facility] (HLAB)[address] Urea nitrogen [Mass/Vol] 10 mg/dL Normal - [facility] Comment on above: Performed By: #### L AB15 ####Job Service Consultant: DEANN CURRAN ([phone])[facility] ([facility])[address] BLOOD TYPE AND SCREEN GELon 11-22-2024 ABO GROUPING O Normal [facility] Comment on above: Performed By: #### L [id number] ####Job Service Consultant: DEANN CURRAN ([phone])[facility] ([facility])[address] RH TYPE IN BLOOD Positive Normal [facility] Comment on above: Performed By: #### L [id number] ####Job Service Consultant: DEANN CURRAN ([phone])[facility] ([facility])[address] [place] [id number] [facility] Basic metabolic 1998 panelon 11-22-2024 Anion gap [Moles/Vol] 13 mmol/L 3 - 13 mmol/L [facility] Calcium [Mass/Vol] 8.4 mg/dL Low 8.8 - 10. 0 mg/dL [facility] Chloride [Moles/Vol] 94 mmol/L Low 98 - 10 7 mmol/L [facility] CO2 [Moles/Vol] 27 mmol/L 23 - 31 mmol/L [facility] Creatinine [Mass/Vol] 2.28 mg/dL High 0.57 - 1.11 mg/dL [facility] GFR/1.73 sq M.predicted (S/P/Bld) [Vol rate/Area] 22 mL/min Low - PINF [facility] Comment on above: Calculation based on the Chronic Kidney Disease Epidemiology Collaboration (CKD-EPI) equation refit without adjustment for race Glucose [Mass/Vol] 81 mg/dL Low 82 - 115 mg/dL [facility] Interpretation and review of laboratory results Abnormal [facility] Potassium [Moles/Vol] 3.1 mmol/L Low 3.5 - 5.1 mmol/L [facility] Comment on above: Plasma potassium bhaskar ues may be up to 0.5 mmol/L lower than serum values. Sodium [Moles/Vol] 134 mmol/L Low 136 - 145 mmol/L [facility] Urea nitrogen [Mass/Vol] 10 mg/dL 9 - 23 mg/dL [facility] Blood type and Crossmatch pa kojo (Bld)on 11-22-2024 ABO group Nom (Bld) O [facility] Blood group antibody screen GEL Ql Negative [facility] D Ag Ql (RBC) Positive [facility] CBC W Auto Differential pane l (Bld)on 11-22-2024 Basophils (Bld) [#/Vol] 0.2 10*3/uL 0.0 - 0.2 10*3/uL [facility] Basophils/100 WBC (Bld) 2.3 % High 0.0 - 2.0 % [facility] [employer] Eosinophils (Bld) [#/Vol] 0.4 10*3/uL 0.0 - 0.5 10*3/uL [facility] Eosinophils/100 WBC (Bld) 4.2 % 0.0 - 6.0 % [facility] [employer] Erythrocyte distribution width (RBC) [Ratio] 17.8 % High 11.5 - 15.0 % [facility] Hematocrit (Bld) [Volume fraction] 23.9 % Low 35.0 - 47.0 % [facility] Hemoglobin (Bld) [Mass/Vol] 7.8 g/dL Low 11.7 - 16.0 g/dL [facility] Immature granulocytes (Bld) [#/Vol] 0 10*3/uL NINF - 0.1 10*3/uL [facility] Immature granulocytes/100 WBC (Bld) 0.5 % 0.0 - 2.0 % [facility] Interpretation and review of laboratory results Abnormal [facility] IPF 3 [facility] Lymphocytes (Bld) [#/Vol] 1.6 10*3/uL 1.0 - 4.3 10*3/uL [facility] Lymphocytes/100 WBC (Bld) 18.4 % 15.0 - 45.0 % [facility] MCH (RBC) [Entitic mass] 29.8 pg 26.0 - 34.0 pg [facility] MCHC (RBC) [Mass/Vol] 32.6 % 30.5 - 36.0 % [facility] MCV (RBC) [Entitic vol] 91.2 fL 77.0 - 99.0 fL [facility] Monocytes (Bld) [#/Vol] 0.8 10*3/uL 0.0 - 0.9 10*3/uL [facility] Monocytes/100 WBC (Bld) 9.3 % 5.0 - 13.0 % [facility] Neutrophils (Bld) [#/Vol] 5.6 10*3/uL 1.8 - 7.5 10*3/uL [facility] Neutrophils/100 WBC (Bld) 65.3 % 38.0 - 82.0 % [facility] Nucleated RBC/100 WBC (Bld) [Ratio] 0 % [facility] [employer] Platelet mean volume (Bld) [Entitic vol] 10.3 fL 9.0 - 12.7 fL [facility] Platelets (Bld) [#/Vol] 575 10*3/uL High 140 - 440 10*3/uL [facility] RBC (Bld) [#/Vol] 2.62 10*6/uL Low 3.80 - 5.2 0 10*6/uL [facility] WBC (Bld) [#/Vol] 8.6 10*3/uL 3.6 - 10.7 10*3/uL [facility] CBC WITH AUTO DIFFERENTIALon 11-22-2024 Basophils (Bld) [#/Vol] 0.2 10*3/uL Normal 0.0-0.2 [facility] Comment on above: Performed By: #### L [id number] ####Job Service Consultant: DEANN CURRAN ([phone])[facility] ([facility])[address] [place] [address] Basophils/100 WBC (Bld) 2.3 % High 0.0-2.0 [facility] Comment on above: Performed By: #### L [id number] ####Job Service Consultant: DEANN CURRAN ([phone])[facility] ([facility])[address] Eosinophils (Bld) [#/Vol] 0.4 10*3/uL Normal 0.0-0.5 [facility] Comment on above: Performed By: #### L [id number] ####Job Service Consultant: DEANN CURRAN ([id number])[facility] ([facility])[address] Eosinophils/100 WBC (Bld) 4.2 % Normal 0.0-6.0 [facility] Comment on above: Performed By: #### L [id number] ####Job Service Consultant: DEANN CURRAN ([phone])[facility] ([facility])[address] Erythrocyte distribution width (RBC) [Ratio] 17.8 % High 11.5-15.0 [facility] Comment on above: Performed By: #### L [id number] ####Job Service Consultant: DEANN CURRAN ([id number])[facility] ([facility])[address] Hematocrit (Bld) [Volume fraction] 23.9 % Low 35.0-47.0 [facility] Comment on above: Performed By: #### L [id number] ####Job Service Consultant: DEANN FERNANDESRYLEE ([phone])[facility] ([facility])[address] Hemoglobin (Bld) [Mass/Vol] 7.8 g/dL Low 11.7-16.0 [facility] Comment on above: Performed By: #### L [id number] ####Job Service Consultant: DEANN FERNANDESRYLEE ([phone])[facility] ([facility])[address] IMMATURE GRANS % 0.5 % Normal 0.0-2.0 [facility] Comment on above: Performed By: #### L [id number] ####Job Service Consultant: DEANN FERNANDESRYLEE ([phone])[facility] ([facility])[address] IMMATURE GRANS ABSOLUTE 0.0 10*3/uL Normal <0.1 [facility] Comment on above: Performed By: #### L [id number] ####Job Service Consultant: DEANN FERNANDESRYLEE ([phone])[facility] ([facility])[address] IPF 3 Normal [facility] Comment on above: Performed By: #### L [id number] ####Job Service Consultant: DEANN FERNANDESRYLEE ([phone])[facility] ([facility])[address] [place] [address] [place] Lymphocytes (Bld) [#/Vol] 1.6 10*3/uL Normal 1.0-4.3 [facility] Comment on above: Performed By: #### L [id number] ####Job Service Consultant: DEANN CURRAN ([id number])[facility] ([facility])[address] Lymphocytes/100 WBC (Bld) 18.4 % Normal 15.0-45.0 [facility] Comment on above: Performed By: #### L [id number] ####Job Service Consultant: DEANN CURRAN ([id number])[facility] ([facility])[address] MCH (RBC) [Entitic mass] 29.8 pg Normal 26.0-34.0 [facility] Comment on above: Performed By: #### L [id number] ####Job Service Consultant: DEANN CURRAN ([phone])[facility] ([facility])[address] MCHC 32.6 % Normal 30.5-36.0 [facility] Comment on above: Performed By: #### L [id number] ####Job Service Consultant: DEANN CURRAN ([phone])[facility] ([facility])[address] MCV (RBC) [Entitic vol] 91.2 fL Normal 77.0-99.0 [facility] Comment on above: Performed By: #### L [id number] ####Job Service Consultant: DEANN CURRAN ([phone])[facility] ([facility])[address] [place] [address] Monocytes (Bld) [#/Vol] 0.8 10*3/uL Normal 0.0-0.9 [facility] Comment on above: Performed By: #### L [id number] ####Job Service Consultant: DEANN CURRAN ([phone])[facility] ([facility])[address] Monocytes/100 WBC (Bld) 9.3 % Normal 5.0-13.0 [facility] Comment on above: Performed By: #### L [id number] ####Job Service Consultant: DEANN CURRAN ([phone])[facility] ([facility])[address] NEUTROPHILS ABSOLUTE 5.6 10*3/uL Normal 1.8-7.5 [facility] Comment on above: Performed By: #### L [id number] ####Job Service Consultant: DEANN CURRAN ([id number])[facility] ([facility])[address] Neutrophils/100 WBC (Bld) 65.3 % Normal 38.0-82.0 [facility] Comment on above: Performed By: #### L [id number] ####Job Service Consultant: DEANN CURRAN ([phone])[facility] ([facility])[address] NRBC 0.0 /100 WBCs Normal 0.0-2.0 [facility] Comment on above: Performed By: #### L [id number] ####Job Service Consultant: DEANN CURRAN ([phone])[facility] ([facility])[address] Platelet mean volume (Bld) [Entitic vol] 10.3 fL Normal 9.0-12.7 [facility] Comment on above: Performed By: #### L [id number] ####Job Service Consultant: DEANN CURRAN ([id number])[facility] ([facility])[address] Platelets (Bld) [#/Vol] 575 10*3/uL High 140-440 [facility] Comment on above: Performed By: #### L [id number] ####Job Service Consultant: DEANN CURRAN ([phone])[facility] ([facility])[address] RBC (Bld) [#/Vol] 2.62 10*6/uL Low 3.80-5.20 [facility] Comment on above: Performed By: #### L [id number] ####Job Service Consultant: DEANN CURRAN ([phone])[facility] ([facility])[address] WBC (Bld) [#/Vol] 8.6 10*3/uL Normal 3.6-10.7 [facility] Comment on above: Performed By: #### L [id number] ####Job Service Consultant: DEANN CURRAN ([phone])[facility] ([facility])[address] ED Nursing Noteon 11-22-2024 ED Nursing Note Called [facility] [phone]. Spoke with CYNTHIA Perry. Advised pt sent in from dialysis for low hgb of 6.5, [facility] [facility] ED hgb 7.8. pt stable and will be sent back. Normal [facility] ED Provider Noteon ED Provider Note [facility] Progress Noteon 11-16-2024 Progress Note [facility] [id number] 11-15-2024 [id number] [facility]/SNF - [address] [phone] Patient/Family Choice [facility] [phone] [facility] [id number] MAR & Discharge med list transmitted to [facility] via Careport per TCC request. Electronically signed by JASPREET Verdin [facility] [phone] [facility] Nursing Noteon 11-15-2024 Nursing Note Report called to david dunn at [facility]. All questions answered. 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 Normal [facility] Progress Noteon 11-15-2024 Progress Note [facility] Consulton 11-14-2024 Consult [facility] [phone] 11-13-2024 [id number] [facility] [phone] Patient is from a SN F. 30 day readmission is not warranted. [facility] BASIC METABOLIC PANELon 08- Anion gap [Moles/Vol] 11 mmol/L Normal 3-13 [facility] Comment on above: Performed By: #### L [id number] ####Job Service Consultant: PHILLY FRANCO ([phone])[facility] ([facility])[address] [place] [address] Calcium [Mass/Vol] 7.6 mg/dL Low 8.8-10.0 [facility] Comment on above: Performed By: #### L [id number] ####Job Service Consultant: PHILLY FRANCO ([phone])[facility] ([facility])[address] [place] [address] Chloride [Moles/Vol] 103 mmol/L Normal 98-107 [facility] Comment on above: Performed By: #### L AB15 ####Job Service Consultant: PHILLY FRANCO ([phone])[facility] ([facility])[address] [place] [address] CO2 [Moles/Vol] 23 mmol/L Normal 23-31 [facility] Comment on above: Performed By: #### L AB15 ####Job Service Consultant: PHILLY FRANCO ([phone])[facility] ([facility])[address] [place] [address] Creatinine [Mass/Vol] 3.51 mg/dL High 0.57-1.11 [facility] Comment on above: Performed By: #### L [id number] ####Job Service Consultant: PHILLY FRANCO ([phone])[facility] ([facility])[address] [place] [address] [place] GLOMERULAR FILTRATION RATE ML/MIN/1.73 SQ M.PREDICTED 13.1 mL/min/1.73m*2 Low >60.0 [facility] Comment on above: Result Comment: Calc ulation based on the Chronic Kidney Disease Epidemiology Collaboration (CKD-EPI) equation refit without adjustment for race Performed By: #### L AB15 ####Job Service Consultant: PHILLY FRANCO ([phone])[facility] ([facility])[address] [place] [address] [place] Glucose [Mass/Vol] 62 mg/dL Low 82-115 [facility] Comment on above: Performed By: #### L AB15 ####Job Service Consultant: PHILLY FRANCO ([phone])[facility] ([facility])[address] [place] [address] Potassium [Moles/Vol] 4.0 mmol/L Normal 3.5-5.1 [facility] Comment on above: Result Comment: [facility] potassium values may be up to 0.5 mmol/L lower than serum values. Performed By: #### L AB15 ####Job Service Consultant: PHILLY FRANCO ([phone])[facility] [place] [address] Sodium [Moles/Vol] 137 mmol/L Normal 136-145 [facility] Comment on above: Performed By: #### L [id number] ####Job Service Consultant: PHILLY FRANCO ([phone])[facility] [place] [address] Urea nitrogen [Mass/Vol] 16 mg/dL Normal 9-23 [facility] Comment on above: Performed By: #### L [id number] ####Job Service Consultant: PHILLY FRANCO ([phone])[facility] [place] [address] Basic metabolic 1998 panelon 11-13-2024 Anion gap [Moles/Vol] 11 mmol/L 3 - 13 mmol/L [facility] Calcium [Mass/Vol] 7.6 mg/dL Low 8.8 - 10. 0 mg/dL [facility] Chloride [Moles/Vol] 103 mmol/L 98 - 10 7 mmol/L [facility] CO2 [Moles/Vol] 23 mmol/L 23 - 31 mmol/L [facility] Creatinine [Mass/Vol] 3.51 mg/dL High 0.57 - 1.11 mg/dL [facility] GFR/1.73 sq M.predicted (S/P/Bld) [Vol rate/Area] 13.1 mL/min Low - PINF [facility] Comment on above: Calculation based on the Chronic Kidney Disease Epidemiology Collaboration (CKD-EPI) equation refit without adjustment for race Glucose [Mass/Vol] 62 mg/dL Low 82 - 115 mg/dL [facility] Interpretation and review of laboratory results Abnormal [facility] Potassium [Moles/Vol] 4 mmol/L 3.5 - 5.1 mmol/L [facility] Comment on above: Plasma potassium bhaskar ues may be up to 0.5 mmol/L lower than serum values. Sodium [Moles/Vol] 137 mmol/L 136 - 145 mmol/L [facility] Urea nitrogen [Mass/Vol] 16 mg/dL 9 - 23 mg/dL [facility] CBC W Auto Differential pane l (Bld)Ordered By: Andre Ervin on 11-13-2024 Basophils (Bld) [#/Vol] 0.1 10*3/uL 0.0 - 0.2 10*3/uL [facility] Basophils/100 WBC (Bld) 1.3 % 0.0 - 2.0 % [facility] Eosinophils (Bld) [#/Vol] 0.7 10*3/uL High 0.0 - 0.5 10*3/uL [facility] Eosinophils/100 WBC (Bld) 7.3 % High 0.0 - 6.0 % [facility] Erythrocyte distribution width (RBC) [Ratio] 17 % High 11.5 - 15.0 % [facility] Hematocrit (Bld) [Volume fraction] 22.7 % Low 35.0 - 47.0 % [facility] Hemoglobin (Bld) [Mass/Vol] 7.1 g/dL Low 11.7 - 16.0 g/dL [facility] Immature granulocytes (Bld) [#/Vol] 0.1 10*3/uL High NINF - 0.1 10*3/uL [facility] Immature granulocytes/100 WBC (Bld) 1.1 % 0.0 - 2.0 % [facility] Interpretation and review of laboratory results Abnormal [facility] Lymphocytes (Bld) [#/Vol] 1.9 10*3/uL 1.0 - 4.3 10*3/uL [facility] Lymphocytes/100 WBC (Bld) 19.1 % 15.0 - 45.0 % [facility] MCH (RBC) [Entitic mass] 28.7 pg 26.0 - 34.0 pg [facility] MCHC (RBC) [Mass/Vol] 31.3 % 30.5 - 36.0 % [facility] MCV (RBC) [Entitic vol] 91.9 fL 77.0 - 99.0 fL [facility] Monocytes (Bld) [#/Vol] 0.9 10*3/uL 0.0 - 0.9 10*3/uL [facility] Monocytes/100 WBC (Bld) 8.7 % 5.0 - 13.0 % [facility] Neutrophils (Bld) [#/Vol] 6.3 10*3/uL 1.8 - 7.5 10*3/uL [facility] Neutrophils/100 WBC (Bld) 62.5 % 38.0 - 82.0 % [facility] Nucleated RBC/100 WBC (Bld) [Ratio] 0 % [facility] Platelet mean volume (Bld) [Entitic vol] 10.3 fL 9.0 - 12.7 fL [facility] Platelets (Bld) [#/Vol] 495 10*3/uL High 140 - 440 10*3/uL [facility] RBC (Bld) [#/Vol] 2.47 10*6/uL Low 3.80 - 5.2 0 10*6/uL [facility] WBC (Bld) [#/Vol] 10.1 10*3/uL 3.6 - 10.7 10*3/uL [facility] CBC WITH AUTO DIFFERENTIALon 11-13-2024 Basophils (Bld) [#/Vol] 0.1 10*3/uL Normal 0.0-0.2 [facility] Comment on above: Performed By: #### L [id number] ####Job Service Consultant: PHILLY FRANCO ([phone])[address] Basophils/100 WBC (Bld) 1.3 % Normal 0.0-2.0 [facility] Comment on above: Performed By: #### L [id number] ####Job Service Consultant: PHILLY [id number])[facility] ([facility])[address] [place] [address] Eosinophils (Bld) [#/Vol] 0.7 10*3/uL High 0.0-0.5 [facility] Comment on above: Performed By: #### L [id number] ####Job Service Consultant: PHILLY [id number])[facility] Eosinophils/100 WBC (Bld) 7.3 % High 0.0-6.0 [facility] Comment on above: Performed By: #### L [id number] ####Job Service Consultant: PHILLY FRANCO ([phone])[facility])[address] [place] [address] Erythrocyte distribution width (RBC) [Ratio] 17.0 % High 11.5-15.0 [facility] Comment on above: Performed By: #### L [id number] ####Job Service Consultant: PHILLY FRANCO ([phone])[address] Hematocrit (Bld) [Volume fraction] 22.7 % Low 35.0-47.0 [facility] Comment on above: Performed By: #### L [id number] ####Job Service Consultant: PHILLY FRANCO ([phone])[facility])[address] [place] [address] Hemoglobin (Bld) [Mass/Vol] 7.1 g/dL Low 11.7-16.0 [facility] Comment on above: Performed By: #### L [id number] ####Job Service Consultant: PHILLY FRANCO ([phone])[address] IMMATURE GRANS % 1.1 % Normal 0.0-2.0 [facility] Comment on above: Performed By: #### L [id number] ####Job Service Consultant: PHILLY FRANCO ([phone])[facility])[address] [place] [address] IMMATURE GRANS ABSOLUTE 0.1 10*3/uL High <0.1 [facility] Comment on above: Performed By: #### L [id number] ####Job Service Consultant: PHILLY FRANCO ([phone])[facility])[address] [place] [address] Lymphocytes (Bld) [#/Vol] 1.9 10*3/uL Normal 1.0-4.3 [facility] Comment on above: Performed By: #### L [id number] ####Job Service Consultant: PHILLY FRANCO ([phone])[facility])[address] [place] [address] Lymphocytes/100 WBC (Bld) 19.1 % Normal 15.0-45.0 [facility] Comment on above: Performed By: #### L [id number] ####Job Service Consultant: PHILLY FRANCO ([id number])[facility] ([facility])[address] [place] [address] MCH (RBC) [Entitic mass] 28.7 pg Normal 26.0-34.0 [facility] Comment on above: Performed By: #### L [id number] ####Job Service Consultant: PHILLY FRANCO ([phone])[facility])[address] [place] [address] MCHC 31.3 % Normal 30.5-36.0 [facility] Comment on above: Performed By: #### L [id number] ####Job Service Consultant: PHILLY FRANCO ([phone])[facility])[address] [place] [address] MCV (RBC) [Entitic vol] 91.9 fL Normal 77.0-99.0 [facility] Comment on above: Performed By: #### L [id number] ####Job Service Consultant: PHILLY FRANCO ([phone])[facility])[address] [place] [address] Monocytes (Bld) [#/Vol] 0.9 10*3/uL Normal 0.0-0.9 [facility] Comment on above: Performed By: #### L [id number] ####Job Service Consultant: PHILLY FRANCO ([phone])[facility])[address] [place] [address] Monocytes/100 WBC (Bld) 8.7 % Normal 5.0-13.0 [facility] Comment on above: Performed By: #### L [id number] ####Job Service Consultant: PHILLY FRANCO ([phone])[facility] ([facility])[address] [place] [address] NEUTROPHILS ABSOLUTE 6.3 10*3/uL Normal 1.8-7.5 [facility] Comment on above: Performed By: #### L [id number] ####Job Service Consultant: PHILLY FRANCO ([phone])[facility] ([facility])[address] [place] [address] Neutrophils/100 WBC (Bld) 62.5 % Normal 38.0-82.0 [facility] Comment on above: Performed By: #### L [id number] ####Job Service Consultant: PHILLY FRANCO ([phone])[facility] ([facility])[address] [place] [address] NRBC 0.0 /100 WBCs Normal 0.0-2.0 [facility] Comment on above: Performed By: #### L [id number] ####Job Service Consultant: PHILLY FRANCO ([phone])[facility] ([facility])[address] [place] [address] Platelet mean volume (Bld) [Entitic vol] 10.3 fL Normal 9.0-12.7 [facility] Comment on above: Performed By: #### L [id number] ####Job Service Consultant: PHILLY FRANCO ([id number])[facility] ([facility])[address] [place] [address] [place] Platelets (Bld) [#/Vol] 495 10*3/uL High 140-440 [facility] Comment on above: Performed By: #### L [id number] ####Job Service Consultant: PHILLY FRANCO ([phone])[facility] ([facility])[address] [place] [address] [place] RBC (Bld) [#/Vol] 2.47 10*6/uL Low 3.80-5.20 [facility] Comment on above: Performed By: #### L [id number] ####Job Service Consultant: PHILLY FRANCO ([phone])[facility] ([facility])[address] [place] [address] WBC (Bld) [#/Vol] 10.1 10*3/uL Normal 3.6-10.7 [facility] Comment on above: Performed By: #### L [id number] ####Job Service Consultant: PHILLY FRANCO ([phone])[facility] ([facility])[address] [place] [address] Consulton 11-13-2024 Consult Normal [facility] HEMOGLOBIN AND HEMATOCRIT, B LOODon 11-13-2024 Hematocrit (Bld) [Volume fraction] 23.2 % Low 35.0-47.0 [facility] Comment on above: Performed By: #### L [id number] ####Job Service Consultant: PHILLY FRANCO ([phone])[facility] ([facility])[address] [place] [address] Hemoglobin (Bld) [Mass/Vol] 7.2 g/dL Low 11.7-16.0 [facility] Comment on above: Performed By: #### L [id number] ####Job Service Consultant: PHILLY FRANCO ([phone])[facility] ([facility])[address] [place] [address] Hemoglobin (Bld) [Mass/Vol]o n 11-13-2024 Hematocrit (Bld) [Volume fraction] 23.2 % Low 35.0 - 47.0 % [facility] Interpretation and review of laboratory results Abnormal [facility] - Chemistry and C hemistry - challengeon 11-13-2024 Glucose [Mass/Vol] 81 mg/dL 70 - 100 mg/dL [facility] Glucose [Mass/Vol] 64 mg/dL Low 70 - 100 mg/dL [facility] Laboratory - Hematology and Cell countson 11-13-2024 Hemoglobin (Bld) [Mass/Vol] 7.2 g/dL Low 11.7 - 16.0 g/dL [facility] No Panel Informationon 11-13 Interpretation and review of laboratory results Normal [facility] Performed by: [place] [address] CLIA ID: [id number] [facility] Interpretation and review of laboratory results Abnormal [facility] Performed by: [facility], [address] [place] [id number] CLIA ID: [id number] [facility] Progress Noteon 11-13-2024 Progress Note Normal [facility] Progress Note Normal [facility] BASIC METABOLIC PANELon 11-03 Anion gap [Moles/Vol] 12 mmol/L Normal 3-13 [facility] Comment on above: Performed By: #### L [id number] ####Job Service Consultant: DEANN CURRAN ([phone])[facility] ([facility])[address] Calcium [Mass/Vol] 8.1 mg/dL Low 8.8-10.0 [facility] Comment on above: Performed By: #### L AB15 ####Job Service Consultant: DEANN CURRAN ([phone])[facility] ([facility])[address] Chloride [Moles/Vol] 104 mmol/L Normal 98-107 [facility] Comment on above: Performed By: #### L AB15 ####Job Service Consultant: DEANN CURRAN ([phone])[facility] ([facility])[address] CO2 [Moles/Vol] 24 mmol/L Normal 23-31 [facility] Comment on above: Performed By: #### L AB15 ####Job Service Consultant: DEANN CURRAN ([id number])[facility] ([facility])[address] Creatinine [Mass/Vol] 3.37 mg/dL High 0.57-1.11 [facility] Comment on above: Performed By: #### L AB15 ####Job Service Consultant: DEANN CURRAN ([id number])[facility] ([facility])[address] GLOMERULAR FILTRATION RATE ML/MIN/1.73 SQ M.PREDICTED 13.8 mL/min/1.73m*2 Low >60.0 [facility] Comment on above: Result Comment: Calc ulation based on the Chronic Kidney Disease Epidemiology Collaboration (CKD-EPI) equation refit without adjustment for race Performed By: #### L AB15 ####Job Service Consultant: DEANN CURRAN ([phone])[facility] ([facility])[address] Glucose [Mass/Vol] 78 mg/dL Low 82-115 [facility] Comment on above: Performed By: #### L AB15 ####Job Service Consultant: DEANN CURRAN ([phone])[facility] ([facility])[address] Potassium [Moles/Vol] 4.0 mmol/L Normal 3.5-5.1 [facility] Comment on above: Result Comment: [facility] potassium values may be up to 0.5 mmol/L lower than serum values. Performed By: #### L AB15 ####Job Service Consultant: DEANN CURRAN ([phone])[facility] ([facility])[address] Sodium [Moles/Vol] 140 mmol/L Normal 136-145 [facility] Comment on above: Performed By: #### L AB15 ####Job Service Consultant: DEANN CURRAN ([phone])[facility] ([facility])[address] Urea nitrogen [Mass/Vol] 15 mg/dL Normal 9-23 [facility] Comment on above: Performed By: #### L AB15 ####Job Service Consultant: DEANN CURRAN ([phone])[facility] ([facility])[address] Basic metabolic 1998 panelon 11-12-2024 Anion gap [Moles/Vol] 12 mmol/L 3 - 13 mmol/L [facility] Calcium [Mass/Vol] 8.1 mg/dL Low 8.8 - 10. 0 mg/dL [facility] Chloride [Moles/Vol] 104 mmol/L 98 - 10 7 mmol/L [facility] CO2 [Moles/Vol] 24 mmol/L 23 - 31 mmol/L [facility] Creatinine [Mass/Vol] 3.37 mg/dL High 0.57 - 1.11 mg/dL [facility] GFR/1.73 sq M.predicted (S/P/Bld) [Vol rate/Area] 13.8 mL/min Low - PINF [facility] Comment on above: Calculation based on the Chronic Kidney Disease Epidemiology Collaboration (CKD-EPI) equation refit without adjustment for race Glucose [Mass/Vol] 78 mg/dL Low 82 - 115 mg/dL [facility] Interpretation and review of laboratory results Abnormal [facility] Potassium [Moles/Vol] 4 mmol/L 3.5 - 5.1 mmol/L [facility] Comment on above: Plasma potassium bhaskar ues may be up to 0.5 mmol/L lower than serum values. Sodium [Moles/Vol] 140 mmol/L 136 - 145 mmol/L [facility] Urea nitrogen [Mass/Vol] 15 mg/dL 9 - 23 mg/dL [facility] CBC W Auto Differential pane l (Bld)Ordered By: Mona Huston on 11-12-2024 Erythrocyte distribution width (RBC) [Ratio] 17 % High 11.5 - 15.0 % [facility] Hematocrit (Bld) [Volume fraction] 29 % Low 35.0 - 47.0 % [facility] Hemoglobin (Bld) [Mass/Vol] 9.3 g/dL Low 11.7 - 16.0 g/dL [facility] IPF 4 [facility] MCH (RBC) [Entitic mass] 29.2 pg 26.0 - 34.0 pg [facility] MCHC (RBC) [Mass/Vol] 32.1 % 30.5 - 36.0 % [facility] MCV (RBC) [Entitic vol] 91.2 fL 77.0 - 99.0 fL [facility] Platelet mean volume (Bld) [Entitic vol] 10.5 fL 9.0 - 12.7 fL [facility] Platelets (Bld) [#/Vol] 407 10*3/uL 140 - 440 10*3/uL [facility] RBC (Bld) [#/Vol] 3.18 10*6/uL Low 3.80 - 5.2 0 10*6/uL [facility] WBC (Bld) [#/Vol] 10.9 10*3/uL High 3.6 - 10.7 10*3/uL [facility] CBC WITH AUTO DIFFERENTIALon 11-12-2024 Erythrocyte distribution width (RBC) [Ratio] 17.0 % High 11.5-15.0 [facility] Comment on above: Performed By: #### L [id number], [id number] ####Job Service Consultant: DEANN CURRAN ([phone])[facility] ([facility])[address] Hematocrit (Bld) [Volume fraction] 29.0 % Low 35.0-47.0 [facility] Comment on above: Performed By: #### L [id number], [id number] ####Job Service Consultant: DEANN CURRAN ([phone])[facility] ([facility])[address] [place] [address] Hemoglobin (Bld) [Mass/Vol] 9.3 g/dL Low 11.7-16.0 [facility] Comment on above: Performed By: #### L [id number], [id number] ####Job Service Consultant: DEANN CURRAN ([phone])[facility] IPF 4 Normal [facility] Comment on above: Performed By: #### L [id number], [id number] ####Job Service Consultant: DEANN CURRAN ([phone])[facility] [place] [address] MCH (RBC) [Entitic mass] 29.2 pg Normal 26.0-34.0 [facility] Comment on above: Performed By: #### L [id number], [id number] ####Job Service Consultant: DEANN CURRAN ([phone])[facility] ([facility])[address] MCHC 32.1 % Normal 30.5-36.0 [facility] Comment on above: Performed By: #### L [id number], [id number] ####Job Service Consultant: DEANN CURRAN ([id number])[facility] ([facility])[address] MCV (RBC) [Entitic vol] 91.2 fL Normal 77.0-99.[address] [facility] Comment on above: Performed By: #### L [id number], [id number] ####Job Service Consultant: DEANN CURRAN ([phone])[facility] ([facility])[address] Platelet mean volume (Bld) [Entitic vol] 10.5 fL Normal 9.0-12.7 [facility] Comment on above: Performed By: #### L [id number], [id number] ####Job Service Consultant: DEANN CURRAN ([phone])[facility] ([facility])[address] Platelets (Bld) [#/Vol] 407 10*3/uL Normal 140-440 [facility] Comment on above: Performed By: #### L [id number], [id number] ####Job Service Consultant: DEANN CURRAN ([phone])[facility] ([facility])[address] RBC (Bld) [#/Vol] 3.18 10*6/uL Low 3.80-5.20 [facility] Comment on above: Performed By: #### L [id number], [id number] ####Job Service Consultant: DEANN CURRAN ([id number])[facility] ([facility])[address] [place] [address] [place] WBC (Bld) [#/Vol] 10.9 10*3/uL High 3.6-10.7 [facility] Comment on above: Performed By: #### L [id number], [id number] ####Job Service Consultant: DEANN CURRAN ([id number])[facility] ([facility])[address] [place] [address] [place] Consulton 11-12-2024 Consult Normal [facility] ED Nursing Noteon 11-12-2024 ED Nursing Note Moody Harman at bedside for transport to [facility] for admission. Packet/blue card sent with crew. Normal [facility] ED Nursing Note Report called to Fawad rouse, RN 1 [facility]. Pt awaiting transport, resting comfortably at this time, side rails up x2, curtain remains open for safety. Normal [facility] ED Provider Noteon ED Provider Note Normal [facility] MANUAL DIFFERENTIALon 2024 ANISOCYTOSIS PRESENCE IN BLOOD BY LIGHT MICROSCOPY Moderate Abnormal (none) [facility] Comment on above: Performed By: #### L [id number], [id number] ####Job Service Consultant: DEANN CURRAN ([id number])[facility] ([facility])[address] [place] [address] [place] BASOPHILS (10*3/UL) IN BLOOD BY MANUAL COUNT 0.1 10*3/uL Normal 0.0-0.2 [facility] Comment on above: Performed By: #### L [id number], [id number] ####Job Service Consultant: DEANN CURRAN ([phone])[facility] ([facility])[address] [place] [address] [place] BASOPHILS TOTAL PER COUNTED LEUKOCYTES BY MANUAL COUNT 1 Normal [facility] Comment on above: Performed By: #### L [id number], [id number] ####Job Service Consultant: DEANN CURRAN ([phone])[facility] ([facility])[address] [place] [address] [place] BASOPHILS/100 LEUKOCYTES IN BLOOD BY MANUAL COUNT 1 % Normal 0-2 [facility] [facility] Comment on above: Performed By: #### L [id number], [id number] ####Job Service Consultant: DEANN CURRAN ([phone])[facility] ([facility])[address] [place] [address] [place] CHERI CELLS PRESENCE IN BLOOD BY LIGHT MICROSCOPY Rare Abnormal (none) [facility] Comment on above: Performed By: #### L [id number], [id number] ####Job Service Consultant: DEANN CURRAN ([phone])[facility] [place] ([facility])[address] [place] [address] [place] CELLS COUNTED TOTAL (#) IN BLOOD 100 Normal [facility] Comment on above: Performed By: #### L [id number], [id number] ####Job Service Consultant: DEANN FERNANDESRYLEE ([phone])[facility] ([facility])[address] DIFFERENTIAL METHOD Manual differential performed Normal [facility] Comment on above: Performed By: #### L [id number], [id number] ####Job Service Consultant: DEANN CURRAN ([id number])[facility] ([facility])[address] [place] [address] [place] EOSINOPHILS (10*3/UL) IN BLOOD BY MANUAL COUNT 0.3 10*3/uL Normal 0.0-0.5 [facility] Comment on above: Performed By: #### L [id number], [id number] ####Job Service Consultant: DEANN CURRAN ([phone])[facility] ([facility])[address] [place] [address] [place] EOSINOPHILS TOTAL PER COUNTED LEUKOCYTES BY MANUAL COUNT 3 High 0-1 [facility] Comment on above: Performed By: #### L [id number], [id number] ####Job Service Consultant: DEANN CURRAN ([phone])[facility] ([facility])[address] [place] [address] [place] EOSINOPHILS/100 LEUKOCYTES IN BLOOD BY MANUAL COUNT 3 % Normal 0-6 [facility] Comment on above: Performed By: #### L [id number], [id number] ####Job Service Consultant: DEANN CURRAN ([phone])[facility] ([facility])[address] [place] [address] [place] LEUKOCYTE MORPHOLOGY FINDING IN BLOOD Normal Normal [facility] Comment on above: Performed By: #### L [id number], [id number] ####Job Service Consultant: DEANN CURRAN ([phone])[facility] ([facility])[address] [place] [address] [place] LEUKOCYTES (10*3/UL) NUCLEATED ERYTHROCYTE ADJUST 10.9 10*3/uL High 3.6-10.7 [facility] Comment on above: Performed By: #### L [id number], [id number] ####Job Service Consultant: DEANN CURRAN ([phone])[facility] ([facility])[address] [place] [address] [place] LYMPHOCYTES (10*3/UL) IN BLOOD BY MANUAL COUNT 1.3 10*3/uL Normal 1.0-4.3 [facility] Comment on above: Performed By: #### L [id number], [id number] ####Job Service Consultant: DEANN CURRAN ([phone])[facility] ([facility])[address] LYMPHOCYTES TOTAL PER COUNTED LEUKOCYTES BY MANUAL COUNT 12 Normal [facility] Comment on above: Performed By: #### L [id number], [id number] ####Job Service Consultant: DEANN CURRAN ([phone])[facility] ([facility])[address] [place] [address] [place] LYMPHOCYTES/100 LEUKOCYTES IN BLOOD BY MANUAL COUNT 12 % Low 15-45 [facility] Comment on above: Performed By: #### L [id number], [id number] ####Job Service Consultant: DEANN CURRAN ([phone])[facility] ([facility])[address] [place] [address] [place] MONOCYTES (10*3/UL) IN BLOOD BY MANUAL COUNT 0.5 10*3/uL Normal 0.0-0.9 [facility] Comment on above: Performed By: #### L [id number], [id number] ####Job Service Consultant: DEANN CURRAN ([phone])[facility] ([facility])[address] [place] [address] [place] MONOCYTES TOTAL PER COUNTED LEUKOCYTES BY MANUAL COUNT 5 Normal [facility] Comment on above: Performed By: #### L [id number], [id number] ####Job Service Consultant: DEANN CURRAN ([phone])[facility] ([facility])[address] [place] [address] [place] MONOCYTES/100 LEUKOCYTES IN BLOOD BY MANUAL COUNT 5 % Normal 5-13 [facility] Comment on above: Performed By: #### L [id number], [id number] ####Job Service Consultant: DEANN CURRNA ([phone])[facility] ([facility])[address] [place] [address] [place] NEUTROPHILS (SEGS+BANDS) (10*3/UL) BY MANUAL COUNT 8.6 10*3/uL High 1.8-7.0 [facility] Comment on above: Performed By: #### L [id number], [id number] ####Job Service Consultant: DEANN CURRAN ([phone])[facility] ([facility])[address] NEUTROPHILS TOTAL PER COUNTED LEUKOCYTES BY MANUAL COUNT 79 Normal [facility] Comment on above: Performed By: #### L [id number], [id number] ####Job Service Consultant: DEANN CURRAN ([phone])[facility] ([facility])[address] [place] [address] [place] OVALOCYTES PRESENCE IN BLOOD BY LIGHT MICROSCOPY Slight Abnormal (none) [facility] Comment on above: Performed By: #### L [id number], [id number] ####Job Service Consultant: DEANN CURRAN ([phone])[facility] ([facility])[address] PLATELET MORPHOLOGY IN BLOOD Normal Normal [facility] Comment on above: Performed By: #### L [id number], [id number] ####Job Service Consultant: DEANN CURRAN ([phone])[facility] ([facility])[address] [place] [address] [place] POIKILOCYTOSIS (PRESENCE) IN BLOOD BY LIGHT MICROSCOPY Slight Abnormal (none) [facility] Comment on above: Performed By: #### L [id number], [id number] ####Job Service Consultant: DEANN CURRAN ([phone])[facility] ([facility])[address] [place] [address] [place] SEGEMENTED NEUTROPHILS/100 LEUKOCYTES BY MANUAL COUNT 79 % Normal 38-82 [facility] Comment on above: Performed By: #### L [id number], [id number] ####Job Service Consultant: DEANN CURRAN ([phone])[facility] ([facility])[address] Manual differential performe d Ql (Bld)on 11-12-2024 Anisocytosis Ql (Bld) Moderate Abnormal (none) [facility] Basophils (Bld) [#/Vol] 0.1 10*3/uL 0.0 - 0.2 10*3/uL [facility] Basophils Manual 1 [facility] Basophils/100 WBC (Bld) 1 % 0 - 2 % [facility] Cheri cells LM Ql (Bld) Rare Abnormal (none) [facility] Cells Counted Total (Bld) [#] 100 {cells} [facility] Differential Method Manual differential performed [facility] Eosinophils (Bld) [#/Vol] 0.3 10*3/uL 0.0 - 0.5 10*3/uL [facility] Eosinophils Manual 3 High 0 - 1 [facility] Eosinophils/100 WBC (Bld) 3 % 0 - 6 % [facility] Leukocyte morphology finding Nom (Bld) Normal [facility] Lymphocytes (Bld) [#/Vol] 1.3 10*3/uL 1.0 - 4.3 10*3/uL [facility] Lymphocytes Manual 12 [facility] Lymphocytes/100 WBC (Bld) 12 % Low 15 - 45 % [facility] Monocytes (Bld) [#/Vol] 0.5 10*3/uL 0.0 - 0.9 10*3/uL [facility] Monocytes Manual 5 [facility] Monocytes/100 WBC (Bld) 5 % 5 - 13 % [facility] Neutrophils (Bld) [#/Vol] 8.6 10*3/uL High 1.8 - 7.0 10*3/uL [facility] Neutrophils Manual 79 [facility] Ovalocytes LM Ql (Bld) Slight Abnormal (none) [facility] Platelet morphology finding Nom (Bld) Normal [facility] Poikilocytosis LM Ql (Bld) Slight Abnormal (none) [facility] Segmented neutrophils/100 WBC (Bld) 79 % 38 - 82 % [facility] WBC corrected for nucl RBC (Bld) [#/Vol] 10.9 10*3/uL High 3.6 - 10.7 10*3/uL [facility] No Panel InformationOrdered By: Mona Huston on 11-12-2024 Interpretation and review of laboratory results Abnormal [facility] [id number] 11-11-2024 [id number] Normal [facility] [id number] [facility]ci/SNF - [place] [facility] [address] [facility] [id number] Patient/Family Choice Normal [facility] [id number] Normal [facility] BASIC METABOLIC PANELon Anion gap [Moles/Vol] 9 mmol/L Normal 3-13 [facility] Comment on above: Performed By: #### L [id number] ####Job Service Consultant: PIHLLY FRANCO ([phone])[facility])[address] [place] [address] Calcium [Mass/Vol] 7.3 mg/dL Low 8.8-10.0 [facility] Comment on above: Performed By: #### L [id number] ####Job Service Consultant: PIHLLY FRANCO ([phone])[facility] ([facility])[address] [place] [address] Chloride [Moles/Vol] 105 mmol/L Normal 98-107 [facility] Comment on above: Performed By: #### L [id number] ####Job Service Consultant: PHILLY FRANCO ([phone])[facility])[address] [place] [address] CO2 [Moles/Vol] 24 mmol/L Normal 23-31 [facility] Comment on above: Performed By: #### L [id number] ####Job Service Consultant: PHILLY FRANCO ([phone])[facility])[address] [place] [address] Creatinine [Mass/Vol] 4.23 mg/dL High 0.57-1.11 [facility] Comment on above: Performed By: #### L [id number] ####Job Service Consultant: PHILLY FRANCO ([phone])[facility])[address] [place] [address] [place] GLOMERULAR FILTRATION RATE ML/MIN/1.73 SQ M.PREDICTED 10.5 mL/min/1.73m*2 Low >60.0 [facility] Comment on above: Result Comment: Calc ulation based on the Chronic Kidney Disease Epidemiology Collaboration (CKD-EPI) equation refit without adjustment for race Performed By: #### L [id number] ####Job Service Consultant: PHILLY FRANCO ([phone])[facility] ([facility])[address] [place] [address] [place] Glucose [Mass/Vol] 67 mg/dL Low 82-115 [facility] Comment on above: Performed By: #### L [id number] ####Job Service Consultant: PHILLY FRANCO ([phone])[facility])[address] [place] [address] Potassium [Moles/Vol] 4.5 mmol/L Normal 3.5-5.1 [facility] Comment on above: Result Comment: [facility] potassium values may be up to 0.5 mmol/L lower than serum values. Performed By: #### L [id number] ####Job Service Consultant: PHILLY FRANCO ([phone])[facility])[address] [place] [address] Sodium [Moles/Vol] 138 mmol/L Normal 136-145 [facility] Comment on above: Performed By: #### L [id number] ####Job Service Consultant: PHILLY FRANCO ([phone])[facility])[address] [place] [address] [place] Urea nitrogen [Mass/Vol] 26 mg/dL High 9-23 [facility] Comment on above: Performed By: #### L [id number] ####Job Service Consultant: PHILLY FRANCO ([phone])[facility])[address] [place] [address] BLOOD TYPE AND SCREEN GELon 11-11-2024 ABO GROUPING O Normal [facility] Comment on above: Performed By: #### L [id number] ####Job Service Consultant: PHILLY FRANCO ([phone])[facility] ([facility])[address] [place] [address] RH TYPE IN BLOOD Positive Normal [facility] Comment on above: Performed By: #### L [id number] ####Job Service Consultant: PHILLY FRANCO ([phone])[facility] ([facility])[address] [place] [address] Basic metabolic 1998 panelon 11-11-2024 Anion gap [Moles/Vol] 9 mmol/L 3 - 13 mmol/L [facility] Calcium [Mass/Vol] 7.3 mg/dL Low 8.8 - 10. 0 mg/dL [facility] Chloride [Moles/Vol] 105 mmol/L 98 - 10 7 mmol/L [facility] CO2 [Moles/Vol] 24 mmol/L 23 - 31 mmol/L [facility] Creatinine [Mass/Vol] 4.23 mg/dL High 0.57 - 1.11 mg/dL [facility] GFR/1.73 sq M.predicted (S/P/Bld) [Vol rate/Area] 10.5 mL/min Low - PINF [facility] Glucose [Mass/Vol] 67 mg/dL Low 82 - 115 mg/dL [facility] Interpretation and review of laboratory results Abnormal [facility] Potassium [Moles/Vol] 4.5 mmol/L 3.5 - 5.1 mmol/L [facility] Sodium [Moles/Vol] 138 mmol/L 136 - 145 mmol/L [facility] Urea nitrogen [Mass/Vol] 26 mg/dL High 9 - 23 mg/dL [facility] Blood type and Crossmatch pa kojo (Bld)on 11-11-2024 ABO group Nom (Bld) O [facility] Blood group antibody screen GEL Ql Negative [facility] D Ag Ql (RBC) Positive [facility] CBC W Auto Differential pane l (Bld)on 11-11-2024 Basophils (Bld) [#/Vol] 0.1 10*3/uL 0.0 - 0.2 10*3/uL [facility] Basophils/100 WBC (Bld) 1 % 0.0 - 2.0 % [facility] Eosinophils (Bld) [#/Vol] 0.4 10*3/uL 0.0 - 0.5 10*3/uL [facility] Eosinophils/100 WBC (Bld) 3.1 % 0.0 - 6.0 % [facility] Erythrocyte distribution width (RBC) [Ratio] 17.1 % High 11.5 - 15.0 % [facility] Hematocrit (Bld) [Volume fraction] 21.8 % Low 35.0 - 47.0 % [facility] Hemoglobin (Bld) [Mass/Vol] 7 g/dL Low 11.7 - 16.0 g/dL [facility] Immature granulocytes (Bld) [#/Vol] 0.1 10*3/uL High NINF - 0.1 10*3/uL [facility] Immature granulocytes/100 WBC (Bld) 1.1 % 0.0 - 2.0 % [facility] Interpretation and review of laboratory results Abnormal [facility] Lymphocytes (Bld) [#/Vol] 1.8 10*3/uL 1.0 - 4.3 10*3/uL [facility] Lymphocytes/100 WBC (Bld) 14.3 % Low 15.0 - 45.0 % [facility] MCH (RBC) [Entitic mass] 29.3 pg 26.0 - 34.0 pg [facility] MCHC (RBC) [Mass/Vol] 32.1 % 30.5 - 36.0 % [facility] MCV (RBC) [Entitic vol] 91.2 fL 77.0 - 99.0 fL [facility] Monocytes (Bld) [#/Vol] 0.9 10*3/uL 0.0 - 0.9 10*3/uL [facility] Monocytes/100 WBC (Bld) 7.1 % 5.0 - 13.0 % [facility] Neutrophils (Bld) [#/Vol] 9.3 10*3/uL High 1.8 - 7.5 10*3/uL [facility] Neutrophils/100 WBC (Bld) 73.4 % 38.0 - 82.0 % [facility] Nucleated RBC/100 WBC (Bld) [Ratio] 0 % [facility] Platelet mean volume (Bld) [Entitic vol] 10.4 fL 9.0 - 12.7 fL [facility] Platelets (Bld) [#/Vol] 480 10*3/uL High 140 - 440 10*3/uL [facility] RBC (Bld) [#/Vol] 2.39 10*6/uL Low 3.80 - 5.2 0 10*6/uL [facility] WBC (Bld) [#/Vol] 12.6 10*3/uL High 3.6 - 10.7 10*3/uL [facility] CBC WITH AUTO DIFFERENTIALon 11-11-2024 Basophils (Bld) [#/Vol] 0.1 10*3/uL Normal 0.0-0.2 [facility] Comment on above: Performed By: #### L [id number] ####Job Service Consultant: PHILLY FRANCO ([phone])[facility])[address] [place] [address] Basophils/100 WBC (Bld) 1.0 % Normal 0.0-2.0 [facility] Comment on above: Performed By: #### L [id number] ####Job Service Consultant: PHILLY FRANCO ([phone])[facility])[address] [place] [address] Eosinophils (Bld) [#/Vol] 0.4 10*3/uL Normal 0.0-0.5 [facility] Comment on above: Performed By: #### L [id number] ####Job Service Consultant: PHILLY FRANCO ([phone])[facility])[address] [place] [address] Eosinophils/100 WBC (Bld) 3.1 % Normal 0.0-6.0 [facility] Comment on above: Performed By: #### L [id number] ####Job Service Consultant: PHILLY FRANCO ([phone])[facility])[address] [place] [address] Erythrocyte distribution width (RBC) [Ratio] 17.1 % High 11.5-15.0 [facility] Comment on above: Performed By: #### L [id number] ####Job Service Consultant: PHILLY FRANCO ([phone])[facility])[address] [place] [address] [place] Hematocrit (Bld) [Volume fraction] 21.8 % Low 35.0-47.0 [facility] Comment on above: Performed By: #### L [id number] ####Job Service Consultant: PHILLY FRANCO ([phone])[facility])[address] [place] [address] Hemoglobin (Bld) [Mass/Vol] 7.0 g/dL Low 11.7-16.0 [facility] Comment on above: Performed By: #### L [id number] ####Job Service Consultant: PHILLY FRANCO ([phone])[facility])[address] [place] [address] IMMATURE GRANS % 1.1 % Normal 0.0-2.0 [facility] Comment on above: Performed By: #### L [id number] ####Job Service Consultant: PHILLY FRANCO ([phone])[facility])[address] [place] [address] IMMATURE GRANS ABSOLUTE 0.1 10*3/uL High <0.1 [facility] Comment on above: Performed By: #### L [id number] ####Job Service Consultant: PHILLY FRANCO ([phone])[facility])[address] [place] [address] Lymphocytes (Bld) [#/Vol] 1.8 10*3/uL Normal 1.0-4.3 [facility] Comment on above: Performed By: #### L [id number] ####Job Service Consultant: PHILLY FRANCO ([phone])[facility])[address] [place] [address] Lymphocytes/100 WBC (Bld) 14.3 % Low 15.0-45.0 [facility] Comment on above: Performed By: #### L [id number] ####Job Service Consultant: PHILLY FRANCO ([phone])[facility])[address] [place] [address] MCH (RBC) [Entitic mass] 29.3 pg Normal 26.0-34.0 [facility] Comment on above: Performed By: #### L [id number] ####Job Service Consultant: PHILLY FRANCO ([phone])[facility] ([facility])[address] [place] [address] MCHC 32.1 % Normal 30.5-36.0 [facility] Comment on above: Performed By: #### L [id number] ####Job Service Consultant: PHILLY FRANCO ([phone])[facility] ([facility])[address] [place] [address] MCV (RBC) [Entitic vol] 91.2 fL Normal 77.0-99.0 [facility] Comment on above: Performed By: #### L [id number] ####Job Service Consultant: PHILLY FRANCO ([phone])[facility])[address] [place] [address] Monocytes (Bld) [#/Vol] 0.9 10*3/uL Normal 0.0-0.9 [facility] Comment on above: Performed By: #### L [id number] ####Job Service Consultant: PHILLY FRANCO ([phone])[facility] ([facility])[address] [place] [address] Monocytes/100 WBC (Bld) 7.1 % Normal 5.0-13.0 [facility] Comment on above: Performed By: #### L [id number] ####Job Service Consultant: PHILLY FRANCO ([phone])[facility] ([facility])[address] [place] [address] NEUTROPHILS ABSOLUTE 9.3 10*3/uL High 1.8-7.5 [facility] Comment on above: Performed By: #### L [id number] ####Job Service Consultant: PHILLY FRANCO ([phone])[facility])[address] [place] [address] Neutrophils/100 WBC (Bld) 73.4 % Normal 38.0-82.0 [facility] Comment on above: Performed By: #### L [id number] ####Job Service Consultant: PHILLY FRANCO ([id number])[facility] ([facility])[address] [place] [address] NRBC 0.0 /100 WBCs Normal 0.0-2.0 [facility] Comment on above: Performed By: #### L [id number] ####Job Service Consultant: PHILLY FRANCO ([phone])[facility])[address] [place] [address] Platelet mean volume (Bld) [Entitic vol] 10.4 fL Normal 9.0-12.7 [facility] Comment on above: Performed By: #### L [id number] ####Job Service Consultant: PHILLY FRANCO ([phone])[facility] ([facility])[address] [place] [address] Platelets (Bld) [#/Vol] 480 10*3/uL High 140-440 [facility] Comment on above: Performed By: #### L [id number] ####Job Service Consultant: PHILLY FRANCO ([id number])[facility] ([facility])[address] [place] [address] RBC (Bld) [#/Vol] 2.39 10*6/uL Low 3.80-5.20 [facility] Comment on above: Performed By: #### L [id number] ####Job Service Consultant: PHILLY FRANCO ([phone])[facility] ([facility])[address] [place] [address] WBC (Bld) [#/Vol] 12.6 10*3/uL High 3.6-10.7 [facility] Comment on above: Performed By: #### L [id number] ####Job Service Consultant: PHILLY FRANCO ([phone])[facility])[address] [place] [address] Nursing Noteon 11-11-2024 Nursing Note [facility] Normal [facility] Nursing Note Called report to raven sprague at [facility]. Pt brother at bedside aware of dc. Normal [facility] Nursing Note Normal [facility] Progress Noteon 11-11-2024 Progress Note Normal [facility] Progress Note Normal [facility] BASIC METABOLIC PANELon 08-0 Anion gap [Moles/Vol] 5 mmol/L Normal 3-13 [facility] Comment on above: Performed By: #### L [id number] ####Job Service Consultant: PHILLY FRANCO ([phone])[facility] ([facility])[address] [place] [address] Calcium [Mass/Vol] 7.6 mg/dL Low 8.8-10.0 [facility] Comment on above: Performed By: #### L [id number] ####Job Service Consultant: PHILLY FRANCO ([phone])[facility] ([facility])[address] [place] [address] Chloride [Moles/Vol] 103 mmol/L Normal 98-107 [facility] Comment on above: Performed By: #### L [id number] ####Job Service Consultant: PHILLY FRANCO ([phone])[facility] [place] [address] CO2 [Moles/Vol] 26 mmol/L Normal 23-31 [facility] Comment on above: Performed By: #### L [id number] ####Job Service Consultant: PHILLY FRANCO ([phone])[facility] ([facility])[address] [place] [address] Creatinine [Mass/Vol] 2.81 mg/dL High 0.57-1.11 [facility] Comment on above: Performed By: #### L [id number] ####Job Service Consultant: PHILLY FRANCO ([phone])[facility])[address] [place] [address] GLOMERULAR FILTRATION RATE ML/MIN/1.73 SQ M.PREDICTED 17.1 mL/min/1.73m*2 Low >60.0 [facility] Comment on above: Result Comment: Calc ulation based on the Chronic Kidney Disease Epidemiology Collaboration (CKD-EPI) equation refit without adjustment for race Performed By: #### L [id number] ####Job Service Consultant: PHILLY FRANCO ([phone])[facility] [place] [address] Glucose [Mass/Vol] 67 mg/dL Low 82-115 [facility] Comment on above: Performed By: #### L [id number] ####Job Service Consultant: PHILLY FRANCO ([phone])[facility] ([facility])[address] [place] [address] Potassium [Moles/Vol] 4.0 mmol/L Normal 3.5-5.1 [facility] Comment on above: Result Comment: [facility] potassium values may be up to 0.5 mmol/L lower than serum values. Performed By: #### L [id number] ####Job Service Consultant: PHILLY FRANCO ([phone])[facility] ([facility])[address] [place] [address] Sodium [Moles/Vol] 134 mmol/L Low 136-145 [facility] Comment on above: Performed By: #### L AB15 ####Job Service Consultant: PHILLY FRANCO ([phone])[facility] ([facility])[address] [place] [address] Urea nitrogen [Mass/Vol] 16 mg/dL Normal 9-23 [facility] Comment on above: Performed By: #### L [id number] ####Job Service Consultant: PHILLY FRANCO ([phone])[facility])[address] [place] [address] Basic metabolic 1998 panelon 11-10-2024 Anion gap [Moles/Vol] 5 mmol/L 3 - 13 mmol/L [facility] Calcium [Mass/Vol] 7.6 mg/dL Low 8.8 - 10. 0 mg/dL [facility] Chloride [Moles/Vol] 103 mmol/L 98 - 10 7 mmol/L [facility] CO2 [Moles/Vol] 26 mmol/L 23 - 31 mmol/L [facility] Creatinine [Mass/Vol] 2.81 mg/dL High 0.57 - 1.11 mg/dL [facility] GFR/1.73 sq M.predicted (S/P/Bld) [Vol rate/Area] 17.1 mL/min Low - PINF [facility] Glucose [Mass/Vol] 67 mg/dL Low 82 - 115 mg/dL [facility] Interpretation and review of laboratory results Abnormal [facility] Potassium [Moles/Vol] 4 mmol/L 3.5 - 5.1 mmol/L [facility] Sodium [Moles/Vol] 134 mmol/L Low 136 - 145 mmol/L [facility] Urea nitrogen [Mass/Vol] 16 mg/dL 9 - 23 mg/dL [facility] CBC W Auto Differential pane l (Bld)on 11-10-2024 Basophils (Bld) [#/Vol] 0.1 10*3/uL 0.0 - 0.2 10*3/uL [facility] Basophils/100 WBC (Bld) 1 % 0.0 - 2.0 % [facility] Eosinophils (Bld) [#/Vol] 0.4 10*3/uL 0.0 - 0.5 10*3/uL [facility] Eosinophils/100 WBC (Bld) 3.1 % 0.0 - 6.0 % [facility] Erythrocyte distribution width (RBC) [Ratio] 16.9 % High 11.5 - 15.0 % [facility] Hematocrit (Bld) [Volume fraction] 21.6 % Low 35.0 - 47.0 % [facility] Hemoglobin (Bld) [Mass/Vol] 7 g/dL Low 11.7 - 16.0 g/dL [facility] Immature granulocytes (Bld) [#/Vol] 0.2 10*3/uL High NINF - 0.1 10*3/uL [facility] Immature granulocytes/100 WBC (Bld) 1.1 % 0.0 - 2.0 % [facility] Interpretation and review of laboratory results Abnormal [facility] Lymphocytes (Bld) [#/Vol] 2 10*3/uL 1.0 - 4.3 10*3/uL [facility] Lymphocytes/100 WBC (Bld) 15.1 % 15.0 - 45.0 % [facility] MCH (RBC) [Entitic mass] 28.8 pg 26.0 - 34.0 pg [facility] MCHC (RBC) [Mass/Vol] 32.4 % 30.5 - 36.0 % [facility] MCV (RBC) [Entitic vol] 88.9 fL 77.0 - 99.0 fL [facility] Monocytes (Bld) [#/Vol] 1.1 10*3/uL High 0.0 - 0.9 10*3/uL [facility] Monocytes/100 WBC (Bld) 8.1 % 5.0 - 13.0 % [facility] Neutrophils (Bld) [#/Vol] 9.4 10*3/uL High 1.8 - 7.5 10*3/uL [facility] Neutrophils/100 WBC (Bld) 71.6 % 38.0 - 82.0 % [facility] Nucleated RBC/100 WBC (Bld) [Ratio] 0 % [facility] Platelet mean volume (Bld) [Entitic vol] 10.4 fL 9.0 - 12.7 fL [facility] Platelets (Bld) [#/Vol] 382 10*3/uL 140 - 440 10*3/uL [facility] RBC (Bld) [#/Vol] 2.43 10*6/uL Low 3.80 - 5.2 0 10*6/uL [facility] WBC (Bld) [#/Vol] 13.2 10*3/uL High 3.6 - 10.7 10*3/uL [facility] CBC WITH AUTO DIFFERENTIALon 11-10-2024 Basophils (Bld) [#/Vol] 0.1 10*3/uL Normal 0.0-0.2 [facility] Comment on above: Performed By: #### L [id number] ####Job Service Consultant: PHILLY FRANCO ([phone])[facility] ([facility])[address] [place] [address] Basophils/100 WBC (Bld) 1.0 % Normal 0.0-2.0 [facility] Comment on above: Performed By: #### L [id number] ####Job Service Consultant: PHILLY FRANCO ([phone])[facility] ([facility])[address] [place] [address] [place] Eosinophils (Bld) [#/Vol] 0.4 10*3/uL Normal 0.0-0.5 [facility] Comment on above: Performed By: #### L [id number] ####Job Service Consultant: PHILLY FRANCO ([phone])[facility] ([facility])[address] [place] [address] [place] Eosinophils/100 WBC (Bld) 3.1 % Normal 0.0-6.0 [facility] Comment on above: Performed By: #### L [id number] ####Job Service Consultant: PHILLY FRANCO ([phone])[facility])[address] [place] [address] Erythrocyte distribution width (RBC) [Ratio] 16.9 % High 11.5-15.0 [facility] Comment on above: Performed By: #### L [id number] ####Job Service Consultant: PHILLY FRANCO ([phone])[address] Hematocrit (Bld) [Volume fraction] 21.6 % Low 35.0-47.0 [facility] Comment on above: Performed By: #### L [id number] ####Job Service Consultant: PHILLY FRANCO ([phone])[address] Hemoglobin (Bld) [Mass/Vol] 7.0 g/dL Low 11.7-16.0 [facility] Comment on above: Performed By: #### L [id number] ####Job Service Consultant: PHILLY FRANCO ([phone])[address] IMMATURE GRANS % 1.1 % Normal 0.0-2.0 [facility] Comment on above: Performed By: #### L [id number] ####Job Service Consultant: PHILLY FRANCO ([phone])[address] IMMATURE GRANS ABSOLUTE 0.2 10*3/uL High <0.1 [facility] Comment on above: Performed By: #### L [id number] ####Job Service Consultant: PHILLY FRANCO ([phone])[address] Lymphocytes (Bld) [#/Vol] 2.0 10*3/uL Normal 1.0-4.3 [facility] Comment on above: Performed By: #### L [id number] ####Job Service Consultant: PHILLY FRANCO ([phone])[facility] ([facility])[address] [place] [address] Lymphocytes/100 WBC (Bld) 15.1 % Normal 15.0-45.0 [facility] Comment on above: Performed By: #### L [id number] ####Job Service Consultant: PHILLY FRANCO ([phone])[facility])[address] [place] [address] MCH (RBC) [Entitic mass] 28.8 pg Normal 26.0-34.0 [facility] Comment on above: Performed By: #### L [id number] ####Job Service Consultant: PHILLY FRANCO ([phone])[facility])[address] [place] [address] MCHC 32.4 % Normal 30.5-36.0 [facility] Comment on above: Performed By: #### L [id number] ####Job Service Consultant: PHILLY FRANCO ([phone])[facility] ([facility])[address] [place] [address] MCV (RBC) [Entitic vol] 88.9 fL Normal 77.0-99.0 [facility] Comment on above: Performed By: #### L [id number] ####Job Service Consultant: PHILLY FRANCO ([phone])[facility])[address] [place] [address] Monocytes (Bld) [#/Vol] 1.1 10*3/uL High 0.0-0.9 [facility] Comment on above: Performed By: #### L [id number] ####Job Service Consultant: PHILLY FRANCO ([phone])[facility])[address] [place] [address] Monocytes/100 WBC (Bld) 8.1 % Normal 5.0-13.0 [facility] Comment on above: Performed By: #### L [id number] ####Job Service Consultant: PHILLY FRANCO ([phone])[facility] ([facility])[address] [place] [address] NEUTROPHILS ABSOLUTE 9.4 10*3/uL High 1.8-7.5 [facility] Comment on above: Performed By: #### L [id number] ####Job Service Consultant: PHILLY FRANCO ([phone])[facility] ([facility])[address] [place] [address] Neutrophils/100 WBC (Bld) 71.6 % Normal 38.0-82.0 [facility] Comment on above: Performed By: #### L [id number] ####Job Service Consultant: PHILLY FRANCO ([phone])[facility] ([facility])[address] [place] [address] NRBC 0.0 /100 WBCs Normal 0.0-2.0 [facility] Comment on above: Performed By: #### L [id number] ####Job Service Consultant: PHILLY FRANCO ([phone])[facility] ([facility])[address] [place] [address] Platelet mean volume (Bld) [Entitic vol] 10.4 fL Normal 9.0-12.7 [facility] Comment on above: Performed By: #### L [id number] ####Job Service Consultant: PHILLY FRANCO ([phone])[facility] ([facility])[address] [place] [address] Platelets (Bld) [#/Vol] 382 10*3/uL Normal 140-440 [facility] Comment on above: Performed By: #### L [id number] ####Job Service Consultant: PHILLY FRANCO ([phone])[facility] ([facility])[address] [place] [address] [place] RBC (Bld) [#/Vol] 2.43 10*6/uL Low 3.80-5.20 [facility] Comment on above: Performed By: #### L [id number] ####Job Service Consultant: PHILLY FRANCO ([phone])[facility] ([facility])[address] [place] [address] [place] WBC (Bld) [#/Vol] 13.2 10*3/uL High 3.6-10.7 [facility] Comment on above: Performed By: #### L [id number] ####Job Service Consultant: PHILLY FRANCO ([phone])[facility])[address] [place] [address] Nursing Noteon 11-10-2024 Nursing Note Normal [facility] Progress Noteon 11-10-2024 Progress Note Normal [facility] Progress Note Normal [facility] Progress Note Normal [facility] Progress Note Normal [facility] Progress Note Normal [facility] BASIC METABOLIC PANELon Anion gap [Moles/Vol] 8 mmol/L Normal 3-13 [facility] Comment on above: Performed By: #### L [id number] ####Job Service Consultant: PHILLY FRANCO ([phone])[facility])[address] [place] [address] Calcium [Mass/Vol] 7.4 mg/dL Low 8.8-10.0 [facility] Comment on above: Performed By: #### L [id number] ####Job Service Consultant: PHILLY FRANCO ([phone])[facility] ([facility])[address] [place] [address] Chloride [Moles/Vol] 102 mmol/L Normal 98-107 [facility] Comment on above: Performed By: #### L [id number] ####Job Service Consultant: PHILLY FRANCO ([phone])[facility])[address] [place] [address] CO2 [Moles/Vol] 24 mmol/L Normal 23-31 [facility] Comment on above: Performed By: #### L [id number] ####Job Service Consultant: PHILLY FRANCO ([phone])[facility])[address] [place] [address] Creatinine [Mass/Vol] 4.02 mg/dL High 0.57-1.11 [facility] Comment on above: Performed By: #### L [id number] ####Job Service Consultant: PHILLY FRANCO ([phone])[facility])[address] [place] [address] [place] GLOMERULAR FILTRATION RATE ML/MIN/1.73 SQ M.PREDICTED 11.2 mL/min/1.73m*2 Low >60.0 [facility] Comment on above: Result Comment: Calc ulation based on the Chronic Kidney Disease Epidemiology Collaboration (CKD-EPI) equation refit without adjustment for race Performed By: #### L [id number] ####Job Service Consultant: PHILLY FRANCO ([phone])[facility])[address] [place] [address] Glucose [Mass/Vol] 68 mg/dL Low 82-115 [facility] Comment on above: Performed By: #### L [id number] ####Job Service Consultant: PHILLY FRANCO ([phone])[facility])[address] [place] [address] Potassium [Moles/Vol] 4.5 mmol/L Normal 3.5-5.1 [facility] Comment on above: Result Comment: [facility] potassium values may be up to 0.5 mmol/L lower than serum values. Performed By: #### L [id number] ####Job Service Consultant: PHILLY FRANCO ([phone])[facility])[address] [place] [address] Sodium [Moles/Vol] 134 mmol/L Low 136-145 [facility] Comment on above: Performed By: #### L [id number] ####Job Service Consultant: PHILLY FRANCO ([phone])[facility])[address] [place] [address] Urea nitrogen [Mass/Vol] 24 mg/dL High 9-23 [facility] Comment on above: Performed By: #### L [id number] ####Job Service Consultant: PHILLY FRANCO ([phone])[facility])[address] [place] [address] BLOOD TYPE AND SCREEN GELon 11-09-2024 ABO GROUPING O Normal [facility] Comment on above: Performed By: #### L [id number] ####Job Service Consultant: PHILLY [id number])[facility] ([facility])[address] [place] [address] RH TYPE IN BLOOD Positive Normal [facility] Comment on above: Performed By: #### L [id number] ####Job Service Consultant: PHILLY FRANCO ([phone])[facility] ([facility])[address] [place] [address] Basic metabolic 1998 panelon 11-09-2024 Anion gap [Moles/Vol] 8 mmol/L 3 - 13 mmol/L [facility] Calcium [Mass/Vol] 7.4 mg/dL Low 8.8 - 10. 0 mg/dL [facility] Chloride [Moles/Vol] 102 mmol/L 98 - 10 7 mmol/L [facility] CO2 [Moles/Vol] 24 mmol/L 23 - 31 mmol/L [facility] Creatinine [Mass/Vol] 4.02 mg/dL High 0.57 - 1.11 mg/dL [facility] GFR/1.73 sq M.predicted (S/P/Bld) [Vol rate/Area] 11.2 mL/min Low - PINF [facility] Glucose [Mass/Vol] 68 mg/dL Low 82 - 115 mg/dL [facility] Interpretation and review of laboratory results Abnormal [facility] Potassium [Moles/Vol] 4.5 mmol/L 3.5 - 5.1 mmol/L [facility] Sodium [Moles/Vol] 134 mmol/L Low 136 - 145 mmol/L [facility] Urea nitrogen [Mass/Vol] 24 mg/dL High 9 - 23 mg/dL [facility] Blood type and Crossmatch pa kojo (Bld)on 11-09-2024 ABO group Nom (Bld) O [facility] Blood group antibody screen GEL Ql Negative [facility] D Ag Ql (RBC) Positive [facility] CBC W Auto Differential pane l (Bld)Ordered By: Yogi Stanley on 11-09-2024 Basophils (Bld) [#/Vol] 0.2 10*3/uL 0.0 - 0.2 10*3/uL [facility] Basophils/100 WBC (Bld) 1 % 0.0 - 2.0 % [facility] Eosinophils (Bld) [#/Vol] 0.4 10*3/uL 0.0 - 0.5 10*3/uL [facility] Eosinophils/100 WBC (Bld) 2.7 % 0.0 - 6.0 % [facility] Erythrocyte distribution width (RBC) [Ratio] 16.7 % High 11.5 - 15.0 % [facility] Hematocrit (Bld) [Volume fraction] 21.4 % Low 35.0 - 47.0 % [facility] Hemoglobin (Bld) [Mass/Vol] 6.8 g/dL Critically low 11.7 - 16.0 g/dL [facility] Immature granulocytes (Bld) [#/Vol] 0.1 10*3/uL High NINF - 0.1 10*3/uL [facility] Immature granulocytes/100 WBC (Bld) 0.8 % 0.0 - 2.0 % [facility] Interpretation and review of laboratory results Abnormal [facility] Lymphocytes (Bld) [#/Vol] 2.2 10*3/uL 1.0 - 4.3 10*3/uL [facility] Lymphocytes/100 WBC (Bld) 13.5 % Low 15.0 - 45.0 % [facility] MCH (RBC) [Entitic mass] 28.3 pg 26.0 - 34.0 pg [facility] MCHC (RBC) [Mass/Vol] 31.8 % 30.5 - 36.0 % [facility] MCV (RBC) [Entitic vol] 89.2 fL 77.0 - 99.0 fL [facility] Monocytes (Bld) [#/Vol] 1 10*3/uL High 0.0 - 0.9 10*3/uL [facility] Monocytes/100 WBC (Bld) 6.1 % 5.0 - 13.0 % [facility] Neutrophils (Bld) [#/Vol] 12.1 10*3/uL High 1.8 - 7.5 10*3/uL [facility] Neutrophils/100 WBC (Bld) 75.9 % 38.0 - 82.0 % [facility] Nucleated RBC/100 WBC (Bld) [Ratio] 0 % [facility] Platelet mean volume (Bld) [Entitic vol] 10.1 fL 9.0 - 12.7 fL [facility] Platelets (Bld) [#/Vol] 414 10*3/uL 140 - 440 10*3/uL [facility] RBC (Bld) [#/Vol] 2.4 10*6/uL Low 3.80 - 5.2 0 10*6/uL [facility] WBC (Bld) [#/Vol] 16 10*3/uL High 3.6 - 10.7 10*3/uL [facility] CBC WITH AUTO DIFFERENTIALon 11-09-2024 Basophils (Bld) [#/Vol] 0.2 10*3/uL Normal 0.0-0.2 [facility] Comment on above: Performed By: #### L [id number] ####Job Service Consultant: PHILLY FRANCO ([phone])[facility] ([facility])[address] [place] [address] Basophils/100 WBC (Bld) 1.0 % Normal 0.0-2.0 [facility] Comment on above: Performed By: #### L [id number] ####Job Service Consultant: PHILLY FRANCO ([phone])[facility] ([facility])[address] [place] [address] Eosinophils (Bld) [#/Vol] 0.4 10*3/uL Normal 0.0-0.5 [facility] Comment on above: Performed By: #### L [id number] ####Job Service Consultant: PHILLY FRANCO ([phone])[facility] ([facility])[address] [place] [address] Eosinophils/100 WBC (Bld) 2.7 % Normal 0.0-6.0 [facility] Comment on above: Performed By: #### L [id number] ####Job Service Consultant: PHILLY FRANCO ([phone])[facility] ([facility])[address] [place] [address] Erythrocyte distribution width (RBC) [Ratio] 16.7 % High 11.5-15.0 [facility] Comment on above: Performed By: #### L [id number] ####Job Service Consultant: PHILLY FRANCO ([phone])[facility] ([facility])[address] [place] [address] Hematocrit (Bld) [Volume fraction] 21.4 % Low 35.0-47.0 [facility] Comment on above: Performed By: #### L [id number] ####Job Service Consultant: PHILLY FRANCO ([phone])[facility])[address] [place] [address] Hemoglobin (Bld) [Mass/Vol] 6.8 g/dL Critically low 11.7-16.0 [facility] Comment on above: Performed By: #### L [id number] ####Job Service Consultant: PHILLY FRANCO ([phone])[facility])[address] [place] [address] IMMATURE GRANS % 0.8 % Normal 0.0-2.0 [facility] Comment on above: Performed By: #### L [id number] ####Job Service Consultant: PHILLY FRANCO ([phone])[address] IMMATURE GRANS ABSOLUTE 0.1 10*3/uL High <0.1 [facility] Comment on above: Performed By: #### L [id number] ####Job Service Consultant: PHILLY FRANCO ([phone])[facility])[address] [place] [address] Lymphocytes (Bld) [#/Vol] 2.2 10*3/uL Normal 1.0-4.3 [facility] Comment on above: Performed By: #### L [id number] ####Job Service Consultant: PHILLY FRANCO ([phone])[facility])[address] [place] [address] Lymphocytes/100 WBC (Bld) 13.5 % Low 15.0-45.0 [facility] Comment on above: Performed By: #### L [id number] ####Job Service Consultant: PHILLY FRANCO ([phone])[facility])[address] [place] [address] MCH (RBC) [Entitic mass] 28.3 pg Normal 26.0-34.0 [facility] Comment on above: Performed By: #### L [id number] ####Job Service Consultant: PHILLY FRANCO ([phone])[facility] ([facility])[address] [place] [address] MCHC 31.8 % Normal 30.5-36.0 [facility] Comment on above: Performed By: #### L [id number] ####Job Service Consultant: PHILLY FRANCO ([phone])[facility] ([facility])[address] [place] [address] MCV (RBC) [Entitic vol] 89.2 fL Normal 77.0-99.0 [facility] Comment on above: Performed By: #### L [id number] ####Job Service Consultant: PHILLY FRANCO ([phone])[facility])[address] [place] [address] Monocytes (Bld) [#/Vol] 1.0 10*3/uL High 0.0-0.9 [facility] Comment on above: Performed By: #### L [id number] ####Job Service Consultant: PHILLY FRANCO ([phone])[facility] ([facility])[address] [place] [address] Monocytes/100 WBC (Bld) 6.1 % Normal 5.0-13.0 [facility] Comment on above: Performed By: #### L [id number] ####Job Service Consultant: PHILLY FRANCO ([phone])[facility])[address] [place] [address] NEUTROPHILS ABSOLUTE 12.1 10*3/uL High 1.8-7.5 [facility] Comment on above: Performed By: #### L [id number] ####Job Service Consultant: PHILLY FRANCO ([phone])[facility])[address] [place] [address] Neutrophils/100 WBC (Bld) 75.9 % Normal 38.0-82.0 [facility] Comment on above: Performed By: #### L [id number] ####Job Service Consultant: PHILLY FRANCO ([phone])[facility])[address] [place] [address] NRBC 0.0 /100 WBCs Normal 0.0-2.0 [facility] Comment on above: Performed By: #### L [id number] ####Job Service Consultant: PHILLY FRANCO ([phone])[facility])[address] [place] [address] Platelet mean volume (Bld) [Entitic vol] 10.1 fL Normal 9.0-12.7 [facility] Comment on above: Performed By: #### L [id number] ####Job Service Consultant: PHILLY FRANCO ([phone])[facility])[address] [place] [address] Platelets (Bld) [#/Vol] 414 10*3/uL Normal 140-440 [facility] Comment on above: Performed By: #### L [id number] ####Job Service Consultant: PHILLY FRANCO ([phone])[facility])[address] [place] [address] RBC (Bld) [#/Vol] 2.40 10*6/uL Low 3.80-5.20 [facility] Comment on above: Performed By: #### L [id number] ####Job Service Consultant: PHILLY FRANCO ([phone])[facility])[address] [place] [address] WBC (Bld) [#/Vol] 16.0 10*3/uL High 3.6-10.7 [facility] Comment on above: Performed By: #### L [id number] ####Job Service Consultant: PHILLY FRANCO ([phone])[facility])[address] [place] [address] HEMOGLOBIN AND HEMATOCRIT, B LOODon 11-09-2024 Hematocrit (Bld) [Volume fraction] 25.9 % Low 35.0-47.0 [facility] Comment on above: Order Comment: Recom mend 1 hour post transfusion Performed By: #### L [id number] ####Job Service Consultant: PHILLY FRANCO ([phone])[facility])[address] [place] [address] Hemoglobin (Bld) [Mass/Vol] 8.6 g/dL Low 11.7-16.0 [facility] Comment on above: Order Comment: Recom mend 1 hour post transfusion Performed By: #### L [id number] ####Job Service Consultant: PHILLY FRANCO ([phone])[facility] ([facility])[address] [place] [address] Hemoglobin (Bld) [Mass/Vol]O rdered By: Ct [place] on 11-09-2024 Hematocrit (Bld) [Volume fraction] 25.9 % Low 35.0 - 47.0 % [facility] Interpretation and review of laboratory results Abnormal [facility] - Hematology and Cell countsOrdered By: Ct [place] on 11-09-2024 Hemoglobin (Bld) [Mass/Vol] 8.6 g/dL Low 11.7 - 16.0 g/dL [facility] No Panel Informationon 11-09 Blood Expiration Date [id number] S [facility] Crossmatch interpretation COMP [facility] Dispense Status Transfused [facility] Health Product Blood Type 5100 [facility] Health PRODUCT CODE [id number] [facility] ABO O [facility] Unit Number [id number] [facility] RH Positive [facility] Unit Volume 300 mL [facility] Blood Expiration Date [id number] S [facility] Crossmatch interpretation COMP [facility] Dispense Status Released from [place] [facility] Dispense Status Transfused [facility] Product Blood Type 5100 [facility] PRODUCT CODE [id number] [facility] PRODUCT CODE [id number] [facility] ABO O [facility] Unit Number [id number] [facility] Unit Number [id number] [facility] RH Positive [facility] Volume 300 mL [facility] Nursing Noteon 11-09-2024 Nursing Note Normal [facility] Nursing Note Contacted Dr. Ciro rouse regarding pt screaming out in pain and having bit of confusion. Pt dressing saturated and changed again. Anjel H&H. Dialysis at bedside. Normal [facility] Nursing Note Normal [facility] Progress Noteon 11-09-2024 Progress Note Normal [facility] Progress Note Normal [facility] Progress Note Normal [facility] Progress Note Normal [facility] [id number] 11-08-2024 [id number] Auth obtained to return to [place] of willi Good until 11/11. updated. RN reports continued bleeding, low BS and pain this am. Will follow. Normal [facility] BASIC METABOLIC PANELon Anion gap [Moles/Vol] 6 mmol/L Normal 3-13 [facility] Comment on above: Performed By: #### L [id number] ####Job Service Consultant: PHILLY FRANCO ([phone])[facility] ([facility])[address] [place] [address] Calcium [Mass/Vol] 7.2 mg/dL Low 8.8-10.0 [facility] Comment on above: Performed By: #### L [id number] ####Job Service Consultant: PHILLY FRANCO ([phone])[facility] ([facility])[address] [place] [address] [place] Chloride [Moles/Vol] 103 mmol/L Normal 98-107 [facility] Comment on above: Performed By: #### L [id number] ####Job Service Consultant: PHILLY FRANCO ([phone])[facility] ([facility])[address] [place] [address] [place] CO2 [Moles/Vol] 26 mmol/L Normal 23-31 [facility] Comment on above: Performed By: #### L [id number] ####Job Service Consultant: PHILLY FRANCO ([phone])[facility] ([facility])[address] [place] [address] Creatinine [Mass/Vol] 2.91 mg/dL High 0.57-1.11 [facility] Comment on above: Performed By: #### L [id number] ####Job Service Consultant: PHILLY FRANCO ([phone])[facility] ([facility])[address] [place] [address] [place] GLOMERULAR FILTRATION RATE ML/MIN/1.73 SQ M.PREDICTED 16.4 mL/min/1.73m*2 Low >60.0 [facility] Comment on above: Result Comment: Calc ulation based on the Chronic Kidney Disease Epidemiology Collaboration (CKD-EPI) equation refit without adjustment for race Performed By: #### L [id number] ####Job Service Consultant: PHILLY FRANCO ([phone])[facility])[address] [place] [address] Glucose [Mass/Vol] 67 mg/dL Low 82-115 [facility] Comment on above: Performed By: #### L [id number] ####Job Service Consultant: PHILLY FRANCO ([phone])[facility])[address] [place] [address] Potassium [Moles/Vol] 4.0 mmol/L Normal 3.5-5.1 [facility] Comment on above: Result Comment: [facility] potassium values may be up to 0.5 mmol/L lower than serum values. Performed By: #### L [id number] ####Job Service Consultant: PHILLY FRANCO ([phone])[facility])[address] [place] [address] Sodium [Moles/Vol] 135 mmol/L Low 136-145 [facility] Comment on above: Performed By: #### L [id number] ####Job Service Consultant: PHILLY FRANCO ([phone])[address] Urea nitrogen [Mass/Vol] 18 mg/dL Normal 9-23 [facility] Comment on above: Performed By: #### L [id number] ####Job Service Consultant: PHILLY FRANCO ([id number])[address] Basic metabolic 1998 panelon 11-08-2024 Anion gap [Moles/Vol] 6 mmol/L 3 - 13 mmol/L [facility] Calcium [Mass/Vol] 7.2 mg/dL Low 8.8 - 10. 0 mg/dL [facility] Chloride [Moles/Vol] 103 mmol/L 98 - 10 7 mmol/L [facility] CO2 [Moles/Vol] 26 mmol/L 23 - 31 mmol/L [facility] Creatinine [Mass/Vol] 2.91 mg/dL High 0.57 - 1.11 mg/dL [facility] GFR/1.73 sq M.predicted (S/P/Bld) [Vol rate/Area] 16.4 mL/min Low - PINF [facility] Glucose [Mass/Vol] 67 mg/dL Low 82 - 115 mg/dL [facility] Interpretation and review of laboratory results Abnormal [facility] Potassium [Moles/Vol] 4 mmol/L 3.5 - 5.1 mmol/L [facility] Sodium [Moles/Vol] 135 mmol/L Low 136 - 145 mmol/L [facility] Urea nitrogen [Mass/Vol] 18 mg/dL 9 - 23 mg/dL [facility] CBC W Auto Differential pane l (Bld)on 11-08-2024 Basophils (Bld) [#/Vol] 0.1 10*3/uL 0.0 - 0.2 10*3/uL [facility] Basophils/100 WBC (Bld) 0.9 % 0.0 - 2.0 % [facility] Eosinophils (Bld) [#/Vol] 0.5 10*3/uL 0.0 - 0.5 10*3/uL [facility] Eosinophils/100 WBC (Bld) 4.1 % 0.0 - 6.0 % [facility] Erythrocyte distribution width (RBC) [Ratio] 17 % High 11.5 - 15.0 % [facility] Hematocrit (Bld) [Volume fraction] 23.1 % Low 35.0 - 47.0 % [facility] Hemoglobin (Bld) [Mass/Vol] 7.5 g/dL Low 11.7 - 16.0 g/dL [facility] Immature granulocytes (Bld) [#/Vol] 0.1 10*3/uL High NINF - 0.1 10*3/uL [facility] Immature granulocytes/100 WBC (Bld) 0.5 % 0.0 - 2.0 % [facility] Interpretation and review of laboratory results Abnormal [facility] Lymphocytes (Bld) [#/Vol] 2.2 10*3/uL 1.0 - 4.3 10*3/uL [facility] Lymphocytes/100 WBC (Bld) 16.6 % 15.0 - 45.0 % [facility] MCH (RBC) [Entitic mass] 28.8 pg 26.0 - 34.0 pg [facility] MCHC (RBC) [Mass/Vol] 32.5 % 30.5 - 36.0 % [facility] MCV (RBC) [Entitic vol] 88.8 fL 77.0 - 99.0 fL [facility] Monocytes (Bld) [#/Vol] 0.9 10*3/uL 0.0 - 0.9 10*3/uL [facility] Monocytes/100 WBC (Bld) 6.9 % 5.0 - 13.0 % [facility] Neutrophils (Bld) [#/Vol] 9.2 10*3/uL High 1.8 - 7.5 10*3/uL [facility] Neutrophils/100 WBC (Bld) 71 % 38.0 - 82.0 % [facility] Nucleated RBC/100 WBC (Bld) [Ratio] 0 % [facility] Platelet mean volume (Bld) [Entitic vol] 10.3 fL 9.0 - 12.7 fL [facility] Platelets (Bld) [#/Vol] 376 10*3/uL 140 - 440 10*3/uL [facility] RBC (Bld) [#/Vol] 2.6 10*6/uL Low 3.80 - 5.2 0 10*6/uL [facility] WBC (Bld) [#/Vol] 13 10*3/uL High 3.6 - 10.7 10*3/uL [facility] CBC WITH AUTO DIFFERENTIALon 11-08-2024 Basophils (Bld) [#/Vol] 0.1 10*3/uL Normal 0.0-0.2 [facility] Comment on above: Performed By: #### L [id number] ####Job Service Consultant: PHILLY FRANCO ([phone])[address] Basophils/100 WBC (Bld) 0.9 % Normal 0.0-2.0 [facility] Comment on above: Performed By: #### L [id number] ####Job Service Consultant: PHILLY FRANCO ([phone])[facility])[address] [place] [address] Eosinophils (Bld) [#/Vol] 0.5 10*3/uL Normal 0.0-0.5 [facility] Comment on above: Performed By: #### L [id number] ####Job Service Consultant: PHLILY FRANCO ([phone])[facility])[address] [place] [address] Eosinophils/100 WBC (Bld) 4.1 % Normal 0.0-6.0 [facility] Comment on above: Performed By: #### L [id number] ####Job Service Consultant: PHILLY FRANCO ([phone])[address] Erythrocyte distribution width (RBC) [Ratio] 17.0 % High 11.5-15.0 [facility] Comment on above: Performed By: #### L [id number] ####Job Service Consultant: PHILLY FRANCO ([phone])[facility])[address] [place] [address] Hematocrit (Bld) [Volume fraction] 23.1 % Low 35.0-47.0 [facility] Comment on above: Performed By: #### L [id number] ####Job Service Consultant: PHILLY FRANCO ([phone])[address] Hemoglobin (Bld) [Mass/Vol] 7.5 g/dL Low 11.7-16.0 [facility] Comment on above: Performed By: #### L [id number] ####Job Service Consultant: PHILLY FRANCO ([phone])[facility])[address] [place] [address] IMMATURE GRANS % 0.5 % Normal 0.0-2.0 [facility] Comment on above: Performed By: #### L [id number] ####Job Service Consultant: PHILLY FRANCO ([phone])[address] IMMATURE GRANS ABSOLUTE 0.1 10*3/uL High <0.1 [facility] Comment on above: Performed By: #### L [id number] ####Job Service Consultant: PHILLY FRANCO ([phone])[facility])[address] [place] [address] Lymphocytes (Bld) [#/Vol] 2.2 10*3/uL Normal 1.0-4.3 [facility] Comment on above: Performed By: #### L [id number] ####Job Service Consultant: PHILLY FRANCO ([phone])[facility])[address] [place] [address] Lymphocytes/100 WBC (Bld) 16.6 % Normal 15.0-45.0 [facility] Comment on above: Performed By: #### L [id number] ####Job Service Consultant: PHILLY FRANCO ([phone])[facility])[address] [place] [address] MCH (RBC) [Entitic mass] 28.8 pg Normal 26.0-34.0 [facility] Comment on above: Performed By: #### L [id number] ####Job Service Consultant: PHILLY FRANCO ([phone])[facility])[address] [place] [address] MCHC 32.5 % Normal 30.5-36.0 [facility] Comment on above: Performed By: #### L [id number] ####Job Service Consultant: PHILLY FRANCO ([phone])[facility])[address] [place] [address] MCV (RBC) [Entitic vol] 88.8 fL Normal 77.0-99.0 [facility] Comment on above: Performed By: #### L [id number] ####Job Service Consultant: PHILLY FRANCO ([phone])[facility])[address] [place] [address] Monocytes (Bld) [#/Vol] 0.9 10*3/uL Normal 0.0-0.9 [facility] Comment on above: Performed By: #### L [id number] ####Job Service Consultant: PHILLY FRANCO ([phone])[facility] ([facility])[address] [place] [address] Monocytes/100 WBC (Bld) 6.9 % Normal 5.0-13.0 [facility] Comment on above: Performed By: #### L [id number] ####Job Service Consultant: PHILLY FRANCO ([phone])[facility] ([facility])[address] [place] [address] NEUTROPHILS ABSOLUTE 9.2 10*3/uL High 1.8-7.5 [facility] Comment on above: Performed By: #### L [id number] ####Job Service Consultant: PHILLY FRANCO ([phone])[facility] ([facility])[address] [place] [address] Neutrophils/100 WBC (Bld) 71.0 % Normal 38.0-82.0 [facility] Comment on above: Performed By: #### L [id number] ####Job Service Consultant: PHILLY FRANCO ([phone])[facility] ([facility])[address] [place] [address] NRBC 0.0 /100 WBCs Normal 0.0-2.0 [facility] Comment on above: Performed By: #### L [id number] ####Job Service Consultant: PHILLY FRANCO ([id number])[facility] ([facility])[address] [place] [address] Platelet mean volume (Bld) [Entitic vol] 10.3 fL Normal 9.0-12.7 [facility] Comment on above: Performed By: #### L [id number] ####Job Service Consultant: PHILLY FRANCO ([phone])[facility] ([facility])[address] [place] [address] [place] Platelets (Bld) [#/Vol] 376 10*3/uL Normal 140-440 [facility] Comment on above: Performed By: #### L [id number] ####Job Service Consultant: PHILLY FRANCO ([phone])[facility] [place] [address] RBC (Bld) [#/Vol] 2.60 10*6/uL Low 3.80-5.20 [facility] Comment on above: Performed By: #### L [id number] ####Job Service Consultant: PHILLY FRANCO ([id number])[facility] ([facility])[address] [place] [address] WBC (Bld) [#/Vol] 13.0 10*3/uL High 3.6-10.7 [facility] Comment on above: Performed By: #### L [id number] ####Job Service Consultant: PHILLY FRANCO ([phone])[facility])[address] [place] [address] Laboratory - Chemistry and C hemistry - challengeon 11-08-2024 Glucose [Mass/Vol] 117 mg/dL High 70 - 100 mg/dL [facility] No Panel Informationon 11-08 Interpretation and review of laboratory results Abnormal [facility] Nursing Noteon 11-08-2024 Nursing Note Blood sugar 67 orang e juice given pt resting quietly , denies any s/s of hypoglycemia. Normal [facility] Progress Noteon 11-08-2024 Progress Note Normal [facility] Progress Note Normal [facility] [id number] 11-07-2024 [id number] Per [facility] aut h yesterday and that they started a new auth today. Normal [facility] [id number] Normal [facility] BASIC METABOLIC PANELon Anion gap [Moles/Vol] 11 mmol/L Normal 3-13 [facility] Comment on above: Performed By: #### L [id number] ####Job Service Consultant: PHILLY FRANCO ([phone])[facility] ([facility])[address] [place] [address] Calcium [Mass/Vol] 7.2 mg/dL Low 8.8-10.0 [facility] Comment on above: Performed By: #### L [id number] ####Job Service Consultant: PHILLY FRANCO ([phone])[facility])[address] [place] [address] Chloride [Moles/Vol] 105 mmol/L Normal 98-107 [facility] Comment on above: Performed By: #### L [id number] ####Job Service Consultant: PHILLY FRANCO ([phone])[facility])[address] [place] [address] CO2 [Moles/Vol] 23 mmol/L Normal 23-31 [facility] Comment on above: Performed By: #### L [id number] ####Job Service Consultant: PHILLY FRANCO ([phone])[facility])[address] [place] [address] Creatinine [Mass/Vol] 4.35 mg/dL High 0.57-1.11 [facility] Comment on above: Performed By: #### L [id number] ####Job Service Consultant: PHILLY FRANCO ([phone])[facility])[address] [place] [address] GLOMERULAR FILTRATION RATE ML/MIN/1.73 SQ M.PREDICTED 10.1 mL/min/1.73m*2 Low >60.0 [facility] Comment on above: Result Comment: Calc ulation based on the Chronic Kidney Disease Epidemiology Collaboration (CKD-EPI) equation refit without adjustment for race Performed By: #### L [id number] ####Job Service Consultant: PHILLY FRANCO ([phone])[facility])[address] [place] [address] Glucose [Mass/Vol] 82 mg/dL Normal 82-115 [facility] Comment on above: Performed By: #### L [id number] ####Job Service Consultant: PHILLY FRANCO ([phone])[facility])[address] [place] [address] Potassium [Moles/Vol] 4.8 mmol/L Normal 3.5-5.1 [facility] Comment on above: Result Comment: [facility] potassium values may be up to 0.5 mmol/L lower than serum values. Performed By: #### L [id number] ####Job Service Consultant: PHILLY FRANCO ([phone])[facility] ([facility])[address] [place] [address] Sodium [Moles/Vol] 139 mmol/L Normal 136-145 [facility] Comment on above: Performed By: #### L [id number] ####Job Service Consultant: PHILLY FRANCO ([phone])[facility] ([facility])[address] [place] [address] Urea nitrogen [Mass/Vol] 37 mg/dL High 9-23 [facility] Comment on above: Performed By: #### L [id number] ####Job Service Consultant: PHILLY FRANCO ([phone])[facility] ([facility])[address] [place] [address] Bacteria identified Anaer cx Nom (Unsp spec)on 11-07-2024 Interpretation and review of laboratory results Normal [facility] Interpretation and review of laboratory results Normal [facility] Basic metabolic 1998 panelon 11-07-2024 Anion gap [Moles/Vol] 11 mmol/L 3 - 13 mmol/L [facility] Calcium [Mass/Vol] 7.2 mg/dL Low 8.8 - 10. 0 mg/dL [facility] Chloride [Moles/Vol] 105 mmol/L 98 - 10 7 mmol/L [facility] CO2 [Moles/Vol] 23 mmol/L 23 - 31 mmol/L [facility] Creatinine [Mass/Vol] 4.35 mg/dL High 0.57 - 1.11 mg/dL [facility] GFR/1.73 sq M.predicted (S/P/Bld) [Vol rate/Area] 10.1 mL/min Low - PINF [facility] Glucose [Mass/Vol] 82 mg/dL 82 - 115 mg/dL [facility] Interpretation and review of laboratory results Abnormal [facility] Potassium [Moles/Vol] 4.8 mmol/L 3.5 - 5.1 mmol/L [facility] Sodium [Moles/Vol] 139 mmol/L 136 - 145 mmol/L [facility] Urea nitrogen [Mass/Vol] 37 mg/dL High 9 - 23 mg/dL [facility] CBC W Auto Differential pane l (Bld)on 11-07-2024 Basophils (Bld) [#/Vol] 0.1 10*3/uL 0.0 - 0.2 10*3/uL [facility] Basophils/100 WBC (Bld) 1 % 0.0 - 2.0 % [facility] Eosinophils (Bld) [#/Vol] 0.7 10*3/uL High 0.0 - 0.5 10*3/uL [facility] Eosinophils/100 WBC (Bld) 4.7 % 0.0 - 6.0 % [facility] Erythrocyte distribution width (RBC) [Ratio] 17.5 % High 11.5 - 15.0 % [facility] Hematocrit (Bld) [Volume fraction] 23.6 % Low 35.0 - 47.0 % [facility] Hemoglobin (Bld) [Mass/Vol] 7.6 g/dL Low 11.7 - 16.0 g/dL [facility] Immature granulocytes (Bld) [#/Vol] 0.1 10*3/uL High NINF - 0.1 10*3/uL [facility] Immature granulocytes/100 WBC (Bld) 0.6 % 0.0 - 2.0 % [facility] Interpretation and review of laboratory results Abnormal [facility] Lymphocytes (Bld) [#/Vol] 3.1 10*3/uL 1.0 - 4.3 10*3/uL [facility] Lymphocytes/100 WBC (Bld) 22.2 % 15.0 - 45.0 % [facility] MCH (RBC) [Entitic mass] 28.6 pg 26.0 - 34.0 pg [facility] MCHC (RBC) [Mass/Vol] 32.2 % 30.5 - 36.0 % [facility] MCV (RBC) [Entitic vol] 88.7 fL 77.0 - 99.0 fL [facility] Monocytes (Bld) [#/Vol] 1 10*3/uL High 0.0 - 0.9 10*3/uL [facility] Monocytes/100 WBC (Bld) 6.8 % 5.0 - 13.0 % [facility] Neutrophils (Bld) [#/Vol] 9.1 10*3/uL High 1.8 - 7.5 10*3/uL [facility] Neutrophils/100 WBC (Bld) 64.7 % 38.0 - 82.0 % [facility] Nucleated RBC/100 WBC (Bld) [Ratio] 0 % [facility] Platelet mean volume (Bld) [Entitic vol] 10.5 fL 9.0 - 12.7 fL [facility] Platelets (Bld) [#/Vol] 377 10*3/uL 140 - 440 10*3/uL [facility] RBC (Bld) [#/Vol] 2.66 10*6/uL Low 3.80 - 5.2 0 10*6/uL [facility] WBC (Bld) [#/Vol] 14.1 10*3/uL High 3.6 - 10.7 10*3/uL [facility] CBC WITH AUTO DIFFERENTIALon 11-07-2024 Basophils (Bld) [#/Vol] 0.1 10*3/uL Normal 0.0-0.2 [facility] Comment on above: Performed By: #### L [id number] ####Job Service Consultant: PHILLY FRANCO ([phone])[facility])[address] [place] [address] Basophils/100 WBC (Bld) 1.0 % Normal 0.0-2.0 [facility] Comment on above: Performed By: #### L [id number] ####Job Service Consultant: PHILLY FRANCO ([phone])[facility])[address] [place] [address] Eosinophils (Bld) [#/Vol] 0.7 10*3/uL High 0.0-0.5 [facility] Comment on above: Performed By: #### L [id number] ####Job Service Consultant: PHILLY FRANCO ([phone])[facility])[address] [place] [address] Eosinophils/100 WBC (Bld) 4.7 % Normal 0.0-6.0 [facility] Comment on above: Performed By: #### L [id number] ####Job Service Consultant: PHILLY FRANCO ([phone])[facility])[address] [place] [address] Erythrocyte distribution width (RBC) [Ratio] 17.5 % High 11.5-15.0 [facility] Comment on above: Performed By: #### L [id number] ####Job Service Consultant: PHILLY FRANCO ([phone])[facility])[address] [place] [address] Hematocrit (Bld) [Volume fraction] 23.6 % Low 35.0-47.0 [facility] Comment on above: Performed By: #### L [id number] ####Job Service Consultant: PHILLY FRANCO ([phone])[facility])[address] [place] [address] Hemoglobin (Bld) [Mass/Vol] 7.6 g/dL Low 11.7-16.0 [facility] Comment on above: Performed By: #### L [id number] ####Job Service Consultant: PHILLY FRANCO ([phone])[facility])[address] [place] [address] IMMATURE GRANS % 0.6 % Normal 0.0-2.0 [facility] Comment on above: Performed By: #### L [id number] ####Job Service Consultant: PHILLY FRANCO ([phone])[facility])[address] [place] [address] IMMATURE GRANS ABSOLUTE 0.1 10*3/uL High <0.1 [facility] Comment on above: Performed By: #### L [id number] ####Job Service Consultant: PHILLY FRANCO ([phone])[facility])[address] [place] [address] Lymphocytes (Bld) [#/Vol] 3.1 10*3/uL Normal 1.0-4.3 [facility] Comment on above: Performed By: #### L [id number] ####Job Service Consultant: PHILLY FRANCO ([phone])[facility])[address] [place] [address] Lymphocytes/100 WBC (Bld) 22.2 % Normal 15.0-45.0 [facility] Comment on above: Performed By: #### L [id number] ####Job Service Consultant: PHILLY FRANCO ([phone])[facility])[address] [place] [address] MCH (RBC) [Entitic mass] 28.6 pg Normal 26.0-34.0 [facility] Comment on above: Performed By: #### L [id number] ####Job Service Consultant: PHILLY FRANCO ([phone])[facility])[address] [place] [address] MCHC 32.2 % Normal 30.5-36.0 [facility] Comment on above: Performed By: #### L [id number] ####Job Service Consultant: PHILLY FRANCO ([phone])[facility])[address] [place] [address] MCV (RBC) [Entitic vol] 88.7 fL Normal 77.0-99.0 [facility] Comment on above: Performed By: #### L [id number] ####Job Service Consultant: PHILLY FRANCO ([phone])[facility])[address] [place] [address] Monocytes (Bld) [#/Vol] 1.0 10*3/uL High 0.0-0.9 [facility] Comment on above: Performed By: #### L [id number] ####Job Service Consultant: PHILLY FRANCO ([phone])[facility])[address] [place] [address] Monocytes/100 WBC (Bld) 6.8 % Normal 5.0-13.[address] [facility] Comment on above: Performed By: #### L [id number] ####Job Service Consultant: PHILLY FRANCO ([phone])[facility])[address] [place] [address] NEUTROPHILS ABSOLUTE 9.1 10*3/uL High 1.8-7.5 [facility] Comment on above: Performed By: #### L [id number] ####Job Service Consultant: PHILLY FRANCO ([phone])[facility] [place] [address] Neutrophils/100 WBC (Bld) 64.7 % Normal 38.0-82.0 [facility] Comment on above: Performed By: #### L [id number] ####Job Service Consultant: PHILLY FRANCO ([phone])[facility] ([facility])[address] [place] [address] NRBC 0.0 /100 WBCs Normal 0.0-2.0 [facility] Comment on above: Performed By: #### L [id number] ####Job Service Consultant: PHILLY FRANCO ([phone])[facility] ([facility])[address] [place] [address] Platelet mean volume (Bld) [Entitic vol] 10.5 fL Normal 9.0-12.7 [facility] Comment on above: Performed By: #### L [id number] ####Job Service Consultant: PHILLY FRANCO ([id number])[facility] ([facility])[address] [place] [address] Platelets (Bld) [#/Vol] 377 10*3/uL Normal 140-440 [facility] Comment on above: Performed By: #### L [id number] ####Job Service Consultant: PHILLY FRANCO ([phone])[facility] ([facility])[address] [place] [address] RBC (Bld) [#/Vol] 2.66 10*6/uL Low 3.80-5.20 [facility] Comment on above: Performed By: #### L [id number] ####Job Service Consultant: PHILLY FRANCO ([phone])[facility] ([facility])[address] [place] [address] WBC (Bld) [#/Vol] 14.1 10*3/uL High 3.6-10.7 [facility] Comment on above: Performed By: #### L [id number] ####Job Service Consultant: PHILLY FRANCO ([phone])[facility] ([facility])[address] [place] [address] Laboratory - Microbiology an d Antimicrobial susceptibilityon 11-07-2024 Bacteria identified Anaer cx Nom (Unsp spec) No growth at 5 days [facility] Bacteria identified Anaer cx Nom (Unsp spec) No growth at 5 days [facility] Nursing Noteon 11-07-2024 Nursing Note Normal [facility] Progress Noteon 11-07-2024 Progress Note Normal [facility] Progress Note Normal [facility] Progress Note Normal [facility] Progress Note Normal [facility] [id number] 11-06-2024 [id number] Updated notes sent t o [facility] [place] [facility] [place] via [facility] per TCC request. Await review and response regarding ability to accept. TCC notified. [facility] [phone] [facility] messaged to send updates to [facility] with request to start auth to return. Normal [facility] [id number] Normal [facility] BASIC METABOLIC PANELon 08-0 Anion gap [Moles/Vol] 9 mmol/L Normal 3-13 [facility] Comment on above: Performed By: #### L [id number] ####Job Service Consultant: PHILLY FRANCO ([phone])[facility] ([facility])[address] [place] [address] [place] Calcium [Mass/Vol] 7.3 mg/dL Low 8.8-10.0 [facility] Comment on above: Performed By: #### L [id number] ####Job Service Consultant: PHILLY FRANCO ([phone])[facility] ([facility])[address] [place] [address] [place] Chloride [Moles/Vol] 105 mmol/L Normal 98-107 [facility] Comment on above: Performed By: #### L [id number] ####Job Service Consultant: PHILLY FRANCO ([phone])[facility] ([facility])[address] [place] [address] [place] CO2 [Moles/Vol] 24 mmol/L Normal 23-31 [facility] Comment on above: Performed By: #### L [id number] ####Job Service Consultant: PHILLY FRANCO ([phone])[facility] ([facility])[address] [place] [address] Creatinine [Mass/Vol] 3.50 mg/dL High 0.57-1.11 [facility] Comment on above: Performed By: #### L [id number] ####Job Service Consultant: PHILLY FRANCO ([phone])[facility] ([facility])[address] [place] [address] Basic metabolic 1998 panelon 11-06-2024 Anion gap [Moles/Vol] 9 mmol/L 3 - 13 mmol/L [facility] Calcium [Mass/Vol] 7.3 mg/dL Low 8.8 - 10. 0 mg/dL [facility] Chloride [Moles/Vol] 105 mmol/L 98 - 10 7 mmol/L [facility] CO2 [Moles/Vol] 24 mmol/L 23 - 31 mmol/L [facility] Creatinine [Mass/Vol] 3.5 mg/dL High 0.57 - 1.11 mg/dL [facility] GFR/1.73 sq M.predicted (S/P/Bld) [Vol rate/Area] 13.2 mL/min Low - PINF [facility] Glucose [Mass/Vol] 123 mg/dL High 82 - 115 mg/dL [facility] Interpretation and review of laboratory results Abnormal [facility] Potassium [Moles/Vol] 4.7 mmol/L 3.5 - 5.1 mmol/L [facility] Sodium [Moles/Vol] 138 mmol/L 136 - 145 mmol/L [facility] Urea nitrogen [Mass/Vol] 24 mg/dL High 9 - 23 mg/dL [facility] CBC W Auto Differential pane l (Bld)on 11-06-2024 Basophils (Bld) [#/Vol] 0.1 10*3/uL 0.0 - 0.2 10*3/uL [facility] Basophils/100 WBC (Bld) 0.6 % 0.0 - 2.0 % [facility] Eosinophils (Bld) [#/Vol] 0 10*3/uL 0.0 - 0.5 10*3/uL [facility] Eosinophils/100 WBC (Bld) 0.1 % 0.0 - 6.0 % [facility] Erythrocyte distribution width (RBC) [Ratio] 17.4 % High 11.5 - 15.0 % [facility] Hematocrit (Bld) [Volume fraction] 27.6 % Low 35.0 - 47.0 % [facility] Hemoglobin (Bld) [Mass/Vol] 9.3 g/dL Low 11.7 - 16.0 g/dL [facility] Immature granulocytes (Bld) [#/Vol] 0.1 10*3/uL High NINF - 0.1 10*3/uL [facility] Immature granulocytes/100 WBC (Bld) 0.6 % 0.0 - 2.0 % [facility] Interpretation and review of laboratory results Abnormal [facility] Lymphocytes (Bld) [#/Vol] 2.3 10*3/uL 1.0 - 4.3 10*3/uL [facility] Lymphocytes/100 WBC (Bld) 14.8 % Low 15.0 - 45.0 % [facility] MCH (RBC) [Entitic mass] 28.8 pg 26.0 - 34.0 pg [facility] MCHC (RBC) [Mass/Vol] 33.7 % 30.5 - 36.0 % [facility] MCV (RBC) [Entitic vol] 85.4 fL 77.0 - 99.0 fL [facility] Monocytes (Bld) [#/Vol] 1 10*3/uL High 0.0 - 0.9 10*3/uL [facility] Monocytes/100 WBC (Bld) 6.1 % 5.0 - 13.0 % [facility] Neutrophils (Bld) [#/Vol] 12.2 10*3/uL High 1.8 - 7.5 10*3/uL [facility] Neutrophils/100 WBC (Bld) 77.8 % 38.0 - 82.0 % [facility] Nucleated RBC/100 WBC (Bld) [Ratio] 0 % [facility] Platelet mean volume (Bld) [Entitic vol] 10.6 fL 9.0 - 12.7 fL [facility] Platelets (Bld) [#/Vol] 388 10*3/uL 140 - 440 10*3/uL [facility] RBC (Bld) [#/Vol] 3.23 10*6/uL Low 3.80 - 5.2 0 10*6/uL [facility] WBC (Bld) [#/Vol] 15.6 10*3/uL High 3.6 - 10.7 10*3/uL [facility] Progress Noteon 11-06-2024 Progress Note Normal [facility] Progress Note Normal [facility] Progress Note Normal [facility] Progress Note Normal [facility] Progress Note Normal [facility] Bacteria identified Aer cx N om (Unsp spec)on 11-05-2024 Gram Stain Result Moderate Polymorphonuclear leukocytes per low power field [facility] Gram Stain Result No organisms seen [facility] Bacteria identified Aer cx N om (Unsp spec)Ordered By: Te Laguna on 11-05-2024 Gram Stain Result Few Polymorphonuclea r leukocytes per low power field [facility] Gram Stain Result No organisms seen [facility] Basic metabolic 1998 panelon 11-05-2024 Anion gap [Moles/Vol] 9 mmol/L 3 - 13 mmol/L [facility] Calcium [Mass/Vol] 7.3 mg/dL Low 8.8 - 10. 0 mg/dL [facility] Chloride [Moles/Vol] 104 mmol/L 98 - 10 7 mmol/L [facility] CO2 [Moles/Vol] 25 mmol/L 23 - 31 mmol/L [facility] Creatinine [Mass/Vol] 2.53 mg/dL High 0.57 - 1.11 mg/dL [facility] GFR/1.73 sq M.predicted (S/P/Bld) [Vol rate/Area] 19.4 mL/min Low - PINF [facility] Glucose [Mass/Vol] 66 mg/dL Low 82 - 115 mg/dL [facility] Interpretation and review of laboratory results Abnormal [facility] Potassium [Moles/Vol] 3.8 mmol/L 3.5 - 5.1 mmol/L [facility] Sodium [Moles/Vol] 138 mmol/L 136 - 145 mmol/L [facility] Urea nitrogen [Mass/Vol] 13 mg/dL 9 - 23 mg/dL [facility] Blood type and Crossmatch pa kojo (Bld)on 11-05-2024 ABO group Nom (Bld) O [facility] Blood group antibody screen GEL Ql Negative [facility] D Ag Ql (RBC) Positive [facility] CBC W Auto Differential pane l (Bld)Ordered By: Beatriz Morales on 11-05-2024 Basophils (Bld) [#/Vol] 0.1 10*3/uL 0.0 - 0.2 10*3/uL [facility] Basophils/100 WBC (Bld) 0.8 % 0.0 - 2.0 % [facility] Eosinophils (Bld) [#/Vol] 0.8 10*3/uL High 0.0 - 0.5 10*3/uL [facility] Eosinophils/100 WBC (Bld) 5.1 % 0.0 - 6.0 % [facility] Erythrocyte distribution width (RBC) [Ratio] 17.3 % High 11.5 - 15.0 % [facility] Hematocrit (Bld) [Volume fraction] 20.3 % Low 35.0 - 47.0 % [facility] Hemoglobin (Bld) [Mass/Vol] 6.6 g/dL Critically low 11.7 - 16.0 g/dL [facility] [employer] Immature granulocytes (Bld) [#/Vol] 0.1 10*3/uL High NINF - 0.1 10*3/uL [facility] Immature granulocytes/100 WBC (Bld) 0.6 % 0.0 - 2.0 % [facility] Interpretation and review of laboratory results Abnormal [facility] Lymphocytes (Bld) [#/Vol] 2.2 10*3/uL 1.0 - 4.3 10*3/uL [facility] Lymphocytes/100 WBC (Bld) 14.8 % Low 15.0 - 45.0 % [facility] MCH (RBC) [Entitic mass] 28.4 pg 26.0 - 34.0 pg [facility] MCHC (RBC) [Mass/Vol] 32.5 % 30.5 - 36.0 % [facility] MCV (RBC) [Entitic vol] 87.5 fL 77.0 - 99.0 fL [facility] Monocytes (Bld) [#/Vol] 0.9 10*3/uL 0.0 - 0.9 10*3/uL [facility] Monocytes/100 WBC (Bld) 6.2 % 5.0 - 13.0 % [facility] Neutrophils (Bld) [#/Vol] 10.6 10*3/uL High 1.8 - 7.5 10*3/uL [facility] Neutrophils/100 WBC (Bld) 72.5 % 38.0 - 82.0 % [facility] Nucleated RBC/100 WBC (Bld) [Ratio] 0 % [facility] Platelet mean volume (Bld) [Entitic vol] 10.9 fL 9.0 - 12.7 fL [facility] Platelets (Bld) [#/Vol] 391 10*3/uL 140 - 440 10*3/uL [facility] RBC (Bld) [#/Vol] 2.32 10*6/uL Low 3.80 - 5.2 0 10*6/uL [facility] WBC (Bld) [#/Vol] 14.6 10*3/uL High 3.6 - 10.7 10*3/uL [facility] Hemoglobin (Bld) [Mass/Vol]O rdered By: Emily Hernández on 11-05-2024 Hematocrit (Bld) [Volume fraction] 28.2 % Low 35.0 - 47.0 % [facility] Interpretation and review of laboratory results Abnormal [facility] Hemoglobin (Bld) [Mass/Vol]o n 11-05-2024 Hematocrit (Bld) [Volume fraction] 18 % Low 35.0 - 47.0 % [facility] Interpretation and review of laboratory results Abnormal [facility] Laboratory - Hematology and Cell countsOrdered By: Emily Hernández on 11-05-2024 Hemoglobin (Bld) [Mass/Vol] 9.4 g/dL Low 11.7 - 16.0 g/dL [facility] Laboratory - Hematology and Cell countson 11-05-2024 Hemoglobin (Bld) [Mass/Vol] 5.8 g/dL Critically low 11.7 - 16.0 g/dL [facility] Laboratory - Microbiology an d Antimicrobial susceptibilityon 11-05-2024 Bacteria identified Aer cx Nom (Unsp spec) No growth at 72 hours [facility] Laboratory - Microbiology an d Antimicrobial susceptibilityOrdered By: Te Laguna on 11-05-2024 Bacteria identified Aer cx Nom (Unsp spec) No growth at 72 hours [facility] No Panel Informationon 11-05 Blood Expiration Date [id number] [facility] Crossmatch interpretation COMP [facility] Dispense Status Transfused [facility] Product Blood Type 5100 [facility] PRODUCT CODE [id number] [facility] ABO O [facility] Number [id number] [facility] RH Positive [facility] Volume 300 mL [facility] Blood Expiration Date [id number] [facility] Crossmatch interpretation COMP [facility] Dispense Status Released from Crossmatch [facility] Product Blood Type 5100 [facility] PRODUCT CODE [id number] [facility] ABO O [facility] Number [id number] [facility] RH Positive [facility] Volume 300 mL [facility] Basic metabolic 1998 panelon 11-04-2024 Anion gap [Moles/Vol] 11 mmol/L 3 - 13 mmol/L [facility] Calcium [Mass/Vol] 7.2 mg/dL Low 8.8 - 10. 0 mg/dL [facility] Chloride [Moles/Vol] 104 mmol/L 98 - 10 7 mmol/L [facility] CO2 [Moles/Vol] 24 mmol/L 23 - 31 mmol/L [facility] Creatinine [Mass/Vol] 3.47 mg/dL High 0.57 - 1.11 mg/dL [facility] GFR/1.73 sq M.predicted (S/P/Bld) [Vol rate/Area] 13.3 mL/min Low - PINF [facility] Glucose [Mass/Vol] 79 mg/dL Low 82 - 115 mg/dL [facility] Interpretation and review of laboratory results Abnormal [facility] Potassium [Moles/Vol] 4 mmol/L 3.5 - 5.1 mmol/L [facility] Sodium [Moles/Vol] 139 mmol/L 136 - 145 mmol/L [facility] Urea nitrogen [Mass/Vol] 25 mg/dL High 9 - 23 mg/dL [facility] CBC W Auto Differential pane l (Bld)on 11-04-2024 Basophils (Bld) [#/Vol] 0.1 10*3/uL 0.0 - 0.2 10*3/uL [facility] Basophils/100 WBC (Bld) 0.8 % 0.0 - 2.0 % [facility] Eosinophils (Bld) [#/Vol] 0.5 10*3/uL 0.0 - 0.5 10*3/uL [facility] Eosinophils/100 WBC (Bld) 3.1 % 0.0 - 6.0 % [facility] Erythrocyte distribution width (RBC) [Ratio] 18 % High 11.5 - 15.0 % [facility] Hematocrit (Bld) [Volume fraction] 23 % Low 35.0 - 47.0 % [facility] Hemoglobin (Bld) [Mass/Vol] 7.7 g/dL Low 11.7 - 16.0 g/dL [facility] Immature granulocytes (Bld) [#/Vol] 0.1 10*3/uL High NINF - 0.1 10*3/uL [facility] Immature granulocytes/100 WBC (Bld) 0.6 % 0.0 - 2.0 % [facility] Interpretation and review of laboratory results Abnormal [facility] Lymphocytes (Bld) [#/Vol] 2.5 10*3/uL 1.0 - 4.3 10*3/uL [facility] Lymphocytes/100 WBC (Bld) 15.9 % 15.0 - 45.0 % [facility] MCH (RBC) [Entitic mass] 28.9 pg 26.0 - 34.0 pg [facility] MCHC (RBC) [Mass/Vol] 33.5 % 30.5 - 36.0 % [facility] MCV (RBC) [Entitic vol] 86.5 fL 77.0 - 99.0 fL [facility] Monocytes (Bld) [#/Vol] 0.9 10*3/uL 0.0 - 0.9 10*3/uL [facility] Monocytes/100 WBC (Bld) 5.9 % 5.0 - 13.0 % [facility] Neutrophils (Bld) [#/Vol] 11.4 10*3/uL High 1.8 - 7.5 10*3/uL [facility] Neutrophils/100 WBC (Bld) 73.7 % 38.0 - 82.0 % [facility] Nucleated RBC/100 WBC (Bld) [Ratio] 0 % [facility] Platelet mean volume (Bld) [Entitic vol] 10.6 fL 9.0 - 12.7 fL [facility] Platelets (Bld) [#/Vol] 372 10*3/uL 140 - 440 10*3/uL [facility] RBC (Bld) [#/Vol] 2.66 10*6/uL Low 3.80 - 5.2 0 10*6/uL [facility] WBC (Bld) [#/Vol] 15.5 10*3/uL High 3.6 - 10.7 10*3/uL [facility] CBC W Auto Differential pane l (Bld)Ordered By: Andre Ervin on 11-04-2024 Basophils (Bld) [#/Vol] 0.1 10*3/uL 0.0 - 0.2 10*3/uL [facility] Basophils/100 WBC (Bld) 0.8 % 0.0 - 2.0 % [facility] Eosinophils (Bld) [#/Vol] 0.5 10*3/uL 0.0 - 0.5 10*3/uL [facility] Eosinophils/100 WBC (Bld) 2.7 % 0.0 - 6.0 % [facility] Erythrocyte distribution width (RBC) [Ratio] 18.3 % High 11.5 - 15.0 % [facility] Hematocrit (Bld) [Volume fraction] 20.2 % Low 35.0 - 47.0 % [facility] Hemoglobin (Bld) [Mass/Vol] 6.7 g/dL Critically low 11.7 - 16.0 g/dL [facility] Immature granulocytes (Bld) [#/Vol] 0.1 10*3/uL High NINF - 0.1 10*3/uL [facility] Immature granulocytes/100 WBC (Bld) 0.8 % 0.0 - 2.0 % [facility] Interpretation and review of laboratory results Abnormal [facility] Lymphocytes (Bld) [#/Vol] 2.8 10*3/uL 1.0 - 4.3 10*3/uL [facility] Lymphocytes/100 WBC (Bld) 16 % 15.0 - 45.0 % [facility] MCH (RBC) [Entitic mass] 28.5 pg 26.0 - 34.0 pg [facility] MCHC (RBC) [Mass/Vol] 33.2 % 30.5 - 36.0 % [facility] MCV (RBC) [Entitic vol] 86 fL 77.0 - 99.0 fL [facility] Monocytes (Bld) [#/Vol] 1 10*3/uL High 0.0 - 0.9 10*3/uL [facility] Monocytes/100 WBC (Bld) 5.9 % 5.0 - 13.0 % [facility] Neutrophils (Bld) [#/Vol] 12.7 10*3/uL High 1.8 - 7.5 10*3/uL [facility] Neutrophils/100 WBC (Bld) 73.8 % 38.0 - 82.0 % [facility] Nucleated RBC/100 WBC (Bld) [Ratio] 0 % [facility] Platelet mean volume (Bld) [Entitic vol] 10.7 fL 9.0 - 12.7 fL [facility] Platelets (Bld) [#/Vol] 394 10*3/uL 140 - 440 10*3/uL [facility] RBC (Bld) [#/Vol] 2.35 10*6/uL Low 3.80 - 5.2 0 10*6/uL [facility] WBC (Bld) [#/Vol] 17.2 10*3/uL High 3.6 - 10.7 10*3/uL [facility] Laboratory - Chemistry and C hemistry - challengeon 11-04-2024 Glucose [Mass/Vol] 93 mg/dL 70 - 100 mg/dL [facility] Glucose [Mass/Vol] 93 mg/dL 70 - 100 mg/dL [facility] No Panel Informationon 11-04 Interpretation and review of laboratory results Normal [facility] Interpretation and review of laboratory results Normal [facility] Basic metabolic 1998 panelOr dered By: Shauna Ayon on 11-03-2024 Anion gap [Moles/Vol] 12 mmol/L 3 - 13 mmol/L [facility] Calcium [Mass/Vol] 7.4 mg/dL Low 8.8 - 10. 0 mg/dL [facility] Chloride [Moles/Vol] 103 mmol/L 98 - 10 7 mmol/L [facility] CO2 [Moles/Vol] 21 mmol/L Low 23 - 31 mmol/L [facility] Creatinine [Mass/Vol] 2.68 mg/dL High 0.57 - 1.11 mg/dL [facility] GFR/1.73 sq M.predicted (S/P/Bld) [Vol rate/Area] 18.1 mL/min Low - PINF [facility] Glucose [Mass/Vol] 76 mg/dL Low 82 - 115 mg/dL [facility] Interpretation and review of laboratory results Abnormal [facility] Potassium [Moles/Vol] 3.9 mmol/L 3.5 - 5.1 mmol/L [facility] Sodium [Moles/Vol] 136 mmol/L 136 - 145 mmol/L [facility] Urea nitrogen [Mass/Vol] 16 mg/dL 9 - 23 mg/dL [facility] CBC W Auto Differential pane l (Bld)on 11-03-2024 Basophils (Bld) [#/Vol] 0.1 10*3/uL 0.0 - 0.2 10*3/uL [facility] Basophils/100 WBC (Bld) 0.6 % 0.0 - 2.0 % [facility] Eosinophils (Bld) [#/Vol] 0.2 10*3/uL 0.0 - 0.5 10*3/uL [facility] Eosinophils/100 WBC (Bld) 0.9 % 0.0 - 6.0 % [facility] Erythrocyte distribution width (RBC) [Ratio] 18.3 % High 11.5 - 15.0 % [facility] Hematocrit (Bld) [Volume fraction] 18.6 % Low 35.0 - 47.0 % [facility] Hemoglobin (Bld) [Mass/Vol] 6.1 g/dL Critically low 11.7 - 16.0 g/dL [facility] Immature granulocytes (Bld) [#/Vol] 0.1 10*3/uL High NINF - 0.1 10*3/uL [facility] Immature granulocytes/100 WBC (Bld) 0.6 % 0.0 - 2.0 % [facility] Interpretation and review of laboratory results Abnormal [facility] Lymphocytes (Bld) [#/Vol] 3.6 10*3/uL 1.0 - 4.3 10*3/uL [facility] Lymphocytes/100 WBC (Bld) 18.7 % 15.0 - 45.0 % [facility] MCH (RBC) [Entitic mass] 28.9 pg 26.0 - 34.0 pg [facility] MCHC (RBC) [Mass/Vol] 32.8 % 30.5 - 36.0 % [facility] MCV (RBC) [Entitic vol] 88.2 fL 77.0 - 99.0 fL [facility] Monocytes (Bld) [#/Vol] 1.4 10*3/uL High 0.0 - 0.9 10*3/uL [facility] Monocytes/100 WBC (Bld) 7.3 % 5.0 - 13.0 % [facility] Neutrophils (Bld) [#/Vol] 13.8 10*3/uL High 1.8 - 7.5 10*3/uL [facility] Neutrophils/100 WBC (Bld) 71.9 % 38.0 - 82.0 % [facility] Nucleated RBC/100 WBC (Bld) [Ratio] 0 % [facility] Platelet mean volume (Bld) [Entitic vol] 10.7 fL 9.0 - 12.7 fL [facility] Platelets (Bld) [#/Vol] 407 10*3/uL 140 - 440 10*3/uL [facility] RBC (Bld) [#/Vol] 2.11 10*6/uL Low 3.80 - 5.2 0 10*6/uL [facility] WBC (Bld) [#/Vol] 19.2 10*3/uL High 3.6 - 10.7 10*3/uL [facility] Hemoglobin (Bld) [Mass/Vol]O rdered By: Christy Carnes on 11-03-2024 Hematocrit (Bld) [Volume fraction] 26 % Low 35.0 - 47.0 % [facility] Interpretation and review of laboratory results Abnormal [facility] Laboratory - Chemistry and C hemistry - challengeon 11-03-2024 Glucose [Mass/Vol] 101 mg/dL High 70 - 100 mg/dL [facility] Glucose [Mass/Vol] 112 mg/dL High 70 - 100 mg/dL [facility] Glucose [Mass/Vol] 100 mg/dL 70 - 100 mg/dL [facility] Glucose [Mass/Vol] 95 mg/dL 70 - 100 mg/dL [facility] Laboratory - Hematology and Cell countsOrdered By: Christy Carnes on 11-03-2024 Hemoglobin (Bld) [Mass/Vol] 8.6 g/dL Low 11.7 - 16.0 g/dL [facility] No Panel Informationon 11-03 Interpretation and review of laboratory results Abnormal [facility] Interpretation and review of laboratory results Abnormal [facility] Blood Expiration Date [id number] [facility] Crossmatch interpretation COMP [facility] Dispense Status Transfused [facility] Product Blood Type 5100 [facility] PRODUCT CODE [id number] [facility] PRODUCT CODE [id number] [facility] ABO O [facility] Number [id number] [facility] RH Positive [facility] Volume 227 mL [facility] Volume 285 mL [facility] Interpretation and review of laboratory results Normal [facility] Interpretation and review of laboratory results Normal [facility] Basic metabolic 1998 panelon 11-02-2024 Anion gap [Moles/Vol] 11 mmol/L 3 - 13 mmol/L [facility] Calcium [Mass/Vol] 7.5 mg/dL Low 8.8 - 10. 0 mg/dL [facility] Chloride [Moles/Vol] 105 mmol/L 98 - 10 7 mmol/L [facility] CO2 [Moles/Vol] 20 mmol/L Low 23 - 31 mmol/L [facility] Creatinine [Mass/Vol] 3.99 mg/dL High 0.57 - 1.11 mg/dL [facility] GFR/1.73 sq M.predicted (S/P/Bld) [Vol rate/Area] 11.3 mL/min Low - PINF [facility] Glucose [Mass/Vol] 78 mg/dL Low 82 - 115 mg/dL [facility] Interpretation and review of laboratory results Abnormal [facility] Potassium [Moles/Vol] 5 mmol/L 3.5 - 5.1 mmol/L [facility] Sodium [Moles/Vol] 136 mmol/L 136 - 145 mmol/L [facility] Urea nitrogen [Mass/Vol] 23 mg/dL 9 - 23 mg/dL [facility] Anion gap [Moles/Vol] 12 mmol/L 3 - 13 mmol/L [facility] Calcium [Mass/Vol] 7.7 mg/dL Low 8.8 - 10. 0 mg/dL [facility] Chloride [Moles/Vol] 105 mmol/L 98 - 10 7 mmol/L [facility] CO2 [Moles/Vol] 21 mmol/L Low 23 - 31 mmol/L [facility] Creatinine [Mass/Vol] 4.11 mg/dL High 0.57 - 1.11 mg/dL [facility] GFR/1.73 sq M.predicted (S/P/Bld) [Vol rate/Area] 10.9 mL/min Low - PINF [facility] Glucose [Mass/Vol] 64 mg/dL Low 82 - 115 mg/dL [facility] Interpretation and review of laboratory results Abnormal [facility] Potassium [Moles/Vol] 4.8 mmol/L 3.5 - 5.1 mmol/L [facility] Sodium [Moles/Vol] 138 mmol/L 136 - 145 mmol/L [facility] Urea nitrogen [Mass/Vol] 20 mg/dL 9 - 23 mg/dL [facility] CBC W Auto Differential pane l (Bld)on 11-02-2024 Basophils (Bld) [#/Vol] 0.2 10*3/uL 0.0 - 0.2 10*3/uL [facility] Basophils/100 WBC (Bld) 0.7 % 0.0 - 2.0 % [facility] Eosinophils (Bld) [#/Vol] 0.8 10*3/uL High 0.0 - 0.5 10*3/uL [facility] Eosinophils/100 WBC (Bld) 3.6 % 0.0 - 6.0 % [facility] Erythrocyte distribution width (RBC) [Ratio] 16.3 % High 11.5 - 15.0 % [facility] Hematocrit (Bld) [Volume fraction] 22.9 % Low 35.0 - 47.0 % [facility] Hemoglobin (Bld) [Mass/Vol] 7.4 g/dL Low 11.7 - 16.0 g/dL [facility] Immature granulocytes (Bld) [#/Vol] 0.1 10*3/uL High NINF - 0.1 10*3/uL [facility] Immature granulocytes/100 WBC (Bld) 0.6 % 0.0 - 2.0 % [facility] Interpretation and review of laboratory results Abnormal [facility] Lymphocytes (Bld) [#/Vol] 3.3 10*3/uL 1.0 - 4.3 10*3/uL [facility] Lymphocytes/100 WBC (Bld) 14.8 % Low 15.0 - 45.0 % [facility] MCH (RBC) [Entitic mass] 29.8 pg 26.0 - 34.0 pg [facility] MCHC (RBC) [Mass/Vol] 32.3 % 30.5 - 36.0 % [facility] MCV (RBC) [Entitic vol] 92.3 fL 77.0 - 99.0 fL [facility] Monocytes (Bld) [#/Vol] 1.2 10*3/uL High 0.0 - 0.9 10*3/uL [facility] Monocytes/100 WBC (Bld) 5.6 % 5.0 - 13.0 % [facility] Neutrophils (Bld) [#/Vol] 16.4 10*3/uL High 1.8 - 7.5 10*3/uL [facility] Neutrophils/100 WBC (Bld) 74.7 % 38.0 - 82.0 % [facility] Nucleated RBC/100 WBC (Bld) [Ratio] 0 % [facility] Platelet mean volume (Bld) [Entitic vol] 10.8 fL 9.0 - 12.7 fL [facility] Platelets (Bld) [#/Vol] 530 10*3/uL High 140 - 440 10*3/uL [facility] RBC (Bld) [#/Vol] 2.48 10*6/uL Low 3.80 - 5.2 0 10*6/uL [facility] WBC (Bld) [#/Vol] 21.9 10*3/uL High 3.6 - 10.7 10*3/uL [facility] Hemoglobin (Bld) [Mass/Vol]O rdered By: Rimma Galloway on 11-02-2024 Hematocrit (Bld) [Volume fraction] 24.1 % Low 35.0 - 47.0 % [facility] Interpretation and review of laboratory results Abnormal [facility] Hemoglobin (Bld) [Mass/Vol]O rdered By: Mihaela Miller on 11-02-2024 Hematocrit (Bld) [Volume fraction] 20 % Low 35.0 - 47.0 % [facility] Interpretation and review of laboratory results Abnormal [facility] Laboratory - Chemistry and C hemistry - challengeon 11-02-2024 Glucose [Mass/Vol] 98 mg/dL 70 - 100 mg/dL [facility] Glucose [Mass/Vol] 103 mg/dL High 70 - 100 mg/dL [facility] Glucose [Mass/Vol] 96 mg/dL 70 - 100 mg/dL [facility] Glucose [Mass/Vol] 73 mg/dL 70 - 100 mg/dL [facility] Laboratory - Hematology and Cell countsOrdered By: Rimma Galloway on 11-02-2024 Hemoglobin (Bld) [Mass/Vol] 8 g/dL Low 11.7 - 16.0 g/dL [facility] Laboratory - Hematology and Cell countsOrdered By: Mihaela Miller on 11-02-2024 Hemoglobin (Bld) [Mass/Vol] 6.3 g/dL Critically low 11.7 - 16.0 g/dL [facility] No Panel Informationon 11-02 Interpretation and review of laboratory results Normal [facility] Interpretation and review of laboratory results Abnormal [facility] Interpretation and review of laboratory results Normal [facility] Interpretation and review of laboratory results Normal [facility] Basic metabolic 1998 panelOr dered By: Tameka Can on 11-01-2024 Anion gap [Moles/Vol] 13 mmol/L 3 - 13 mmol/L [facility] Calcium [Mass/Vol] 7.7 mg/dL Low 8.8 - 10. 0 mg/dL [facility] Chloride [Moles/Vol] 104 mmol/L 98 - 10 7 mmol/L [facility] CO2 [Moles/Vol] 22 mmol/L Low 23 - 31 mmol/L [facility] Creatinine [Mass/Vol] 2.98 mg/dL High 0.57 - 1.11 mg/dL [facility] GFR/1.73 sq M.predicted (S/P/Bld) [Vol rate/Area] 16 mL/min Low - PINF [facility] Glucose [Mass/Vol] 67 mg/dL Low 82 - 115 mg/dL [facility] Interpretation and review of laboratory results Abnormal [facility] Potassium [Moles/Vol] 4.6 mmol/L 3.5 - 5.1 mmol/L [facility] Sodium [Moles/Vol] 139 mmol/L 136 - 145 mmol/L [facility] Urea nitrogen [Mass/Vol] 14 mg/dL 9 - 23 mg/dL [facility] Blood type and Crossmatch fredi varma (Bld)on 11-01-2024 ABO group Nom (Bld) O [facility] Blood group antibody screen GEL Ql Negative [facility] D Ag Ql (RBC) Positive [facility] CBC W Auto Differential pane l (Bld)Ordered By: Mka Hobbs on 11-01-2024 Erythrocyte distribution width (RBC) [Ratio] 16.6 % High 11.5 - 15.0 % [facility] Hematocrit (Bld) [Volume fraction] 25.2 % Low 35.0 - 47.0 % [facility] Hemoglobin (Bld) [Mass/Vol] 8 g/dL Low 11.7 - 16.0 g/dL [facility] Interpretation and review of laboratory results Abnormal [facility] MCH (RBC) [Entitic mass] 29.1 pg 26.0 - 34.0 pg [facility] MCHC (RBC) [Mass/Vol] 31.7 % 30.5 - 36.0 % [facility] MCV (RBC) [Entitic vol] 91.6 fL 77.0 - 99.0 fL [facility] Platelet mean volume (Bld) [Entitic vol] 10.3 fL 9.0 - 12.7 fL [facility] Platelets (Bld) [#/Vol] 557 10*3/uL High 140 - 440 10*3/uL [facility] RBC (Bld) [#/Vol] 2.75 10*6/uL Low 3.80 - 5.2 0 10*6/uL [facility] WBC (Bld) [#/Vol] 20.4 10*3/uL High 3.6 - 10.7 10*3/uL [facility] Laboratory - Chemistry and C hemistry - challengeon 11-01-2024 Glucose [Mass/Vol] 79 mg/dL 70 - 100 mg/dL [facility] Glucose [Mass/Vol] 75 mg/dL 70 - 100 mg/dL [facility] Glucose [Mass/Vol] 79 mg/dL 70 - 100 mg/dL [facility] Glucose [Mass/Vol] 81 mg/dL 70 - 100 mg/dL [facility] Glucose [Mass/Vol] 68 mg/dL Low 70 - 100 mg/dL [facility] Glucose [Mass/Vol] 78 mg/dL 70 - 100 mg/dL [facility] Laboratory - Coagulationon 0 11-01-2024 PT Coag (Bld) [Time] 11.8 s 9.0 - 12.0 s [facility] Laboratory - Hematology and Cell countson 11-01-2024 Basophils (Bld) [#/Vol] 0.2 10*3/uL 0.0 - 0.2 10*3/uL [facility] Basophils/100 WBC (Bld) 1 % 0 - 2 % [facility] Eosinophils (Bld) [#/Vol] 0.6 10*3/uL High 0.0 - 0.5 10*3/uL [facility] Eosinophils/100 WBC (Bld) 3 % 0 - 6 % [facility] Hypochromia Ql (Bld) Slight Abnormal (none) [facility] Lymphocytes (Bld) [#/Vol] 1.6 10*3/uL 1.0 - 4.3 10*3/uL [facility] Lymphocytes/100 WBC (Bld) 8 % Low 15 - 45 % [facility] Monocytes (Bld) [#/Vol] 0.4 10*3/uL 0.0 - 0.9 10*3/uL [facility] Monocytes/100 WBC (Bld) 2 % Low 5 - 13 % [facility] Neutrophils (Bld) [#/Vol] 17.5 10*3/uL High 1.8 - 7.5 10*3/uL [facility] Ovalocytes LM Ql (Bld) Slight Abnormal (none) [facility] Poikilocytosis LM Ql (Bld) Slight Abnormal (none) [facility] RBC morphology finding Nom (Bld) abnormal [facility] Segmented neutrophils/100 WBC (Bld) 86 % High 38 - 82 % [facility] No Panel Informationon 11-01 Interpretation and review of laboratory results Normal [facility] Interpretation and review of laboratory results Normal [facility] CV EPIPHANY [facility] CV CPACS Interpretation and review of laboratory results Normal [facility] Interpretation and review of laboratory results Normal [facility] Interpretation and review of laboratory results Abnormal [facility] Basophils Manual 1 [facility] Eosinophils Manual 3 High 0 - 1 [facility] Interpretation and review of laboratory results Abnormal [facility] Lymphocytes Manual 8 [facility] Monocytes Manual 2 [facility] Neutrophils Manual 87 [employer] Interpretation and review of laboratory results Normal [facility] [employer] No Panel InformationOrdered By: Samra Reveles on 11-01-2024 P [place] 53 degrees [employer] Work Phone: KS Interval 107 ms [employer] Work Phone: QRS [place] 10 degrees [employer] Phone: QRSD Interval 71 ms [employer] Work Phone: QT Interval 338 ms [employer] Work Phone: QTC Interval 458 ms [employer] Phone: T Wave [place] 161 degrees [employer] Phone: [employer] Phone: No Panel InformationOrdered By: Jacob Gutiérrez on 11-01-2024 Left AVF Arterial Prox Anastomosis EDV 0 cm/s [employer] Phone: Left AVF Arterial Prox Anastomosis PSV 30.4 cm/s [employer] Phone: [phone] Left AVF AVG Diameter 1 0.6 cm S [employer] Phone: [phone] Left AVF AVG Diameter 2 0.56 cm S [employer] Phone: Left AVF AVG Diameter 3 0.7 cm S [employer] Phone: [phone] Left AVF AVG Inflow Vol Flow 212.7 mL/min [employer] Phone: [phone] Left AVF Dist Outflow EDV 0 cm/s [employer] Phone: [phone] Left AVF Dist Outflow PSV 0 cm/s [employer] Phone: [phone] Left AVF Inflow Artery EDV 0 cm/s [employer] Phone: Left AVF Inflow Artery PSV 64.6 cm/s [employer] Phone: Left AVF Mid Outflow EDV 0 cm/s [employer] Phone: Left AVF Mid Outflow PSV 0 cm/s [employer] Phone: Left AVF Prox Outflow EDV 0 cm/s [employer] Work Phone: Left AVF Prox Outflow PSV 0 cm/s [facility] Work Phone: Left AVF Venous Dist Anastomosis EDV 11 cm/s [facility] Work Phone: Left AVF Venous Dist Anastomosis PSV 21.3 cm/s [employer] Work Phone: Left AVG AVF Depth 1 0.32 cm [employer] Work Phone: Left AVG AVF Depth 2 0.4 cm [employer] Work Phone: Left AVG AVF Depth 3 0.27 cm [employer] Work Phone: PT Coag (Bld) [Time]on 11-01 INR Coag (PPP) [Relative time] 1.1 {INR} 0.9 - 1.1 [facility] [employer] Interpretation and review of laboratory results Normal [facility] [employer] Vital signsOrdered By: Samra Reveles on 11-01-2024 Heart rate 110 /min bpm [facility] Work Phone: XR Chest Single viewon 11-01 [facility] Radiology Study observation (narrative) [facility] [employer] XR Chest Single viewOrdered By: Leonila Seth on 11-01-2024 [facility] [employer] Work Phone: Basic metabolic 1998 panelon 10-31-2024 Anion gap [Moles/Vol] 10 mmol/L 3 - 13 mmol/L [facility] [employer] Calcium [Mass/Vol] 8 mg/dL Low 8.8 - 10. 0 mg/dL [facility] [employer] Chloride [Moles/Vol] 110 mmol/L High 98 - 10 7 mmol/L [facility] [employer] CO2 [Moles/Vol] 23 mmol/L 23 - 31 mmol/L [facility] [employer] Creatinine [Mass/Vol] 4.44 mg/dL High 0.57 - 1.11 mg/dL [facility] [employer] GFR/1.73 sq M.predicted (S/P/Bld) [Vol rate/Area] 9.9 mL/min Low - PINF [facility] Glucose [Mass/Vol] 73 mg/dL Low 82 - 115 mg/dL [facility] Interpretation and review of laboratory results Abnormal [facility] Potassium [Moles/Vol] 4.4 mmol/L 3.5 - 5.1 mmol/L [facility] Sodium [Moles/Vol] 143 mmol/L 136 - 145 mmol/L [facility] Urea nitrogen [Mass/Vol] 27 mg/dL High 9 - 23 mg/dL [facility] CBC W Auto Differential pane l (Bld)on 10-31-2024 Erythrocyte distribution width (RBC) [Ratio] 16.7 % High 11.5 - 15.0 % [facility] Hematocrit (Bld) [Volume fraction] 26.6 % Low 35.0 - 47.0 % [facility] Hemoglobin (Bld) [Mass/Vol] 8.5 g/dL Low 11.7 - 16.0 g/dL [facility] MCH (RBC) [Entitic mass] 29.2 pg 26.0 - 34.0 pg [facility] MCHC (RBC) [Mass/Vol] 32 % 30.5 - 36.0 % [facility] MCV (RBC) [Entitic vol] 91.4 fL 77.0 - 99.0 fL [facility] Platelet mean volume (Bld) [Entitic vol] 10.7 fL 9.0 - 12.7 fL [facility] Platelets (Bld) [#/Vol] 531 10*3/uL High 140 - 440 10*3/uL [facility] RBC (Bld) [#/Vol] 2.91 10*6/uL Low 3.80 - 5.2 0 10*6/uL [facility] WBC (Bld) [#/Vol] 17.2 10*3/uL High 3.6 - 10.7 10*3/uL [facility] Laboratory - Chemistry and C hemistry - challengeon 10-31-2024 Glucose [Mass/Vol] 85 mg/dL 70 - 100 mg/dL [facility] Glucose [Mass/Vol] 69 mg/dL Low 70 - 100 mg/dL [facility] Glucose [Mass/Vol] 78 mg/dL 70 - 100 mg/dL [facility] Glucose [Mass/Vol] 76 mg/dL 70 - 100 mg/dL [facility] Glucose [Mass/Vol] 82 mg/dL 70 - 100 mg/dL [facility] Laboratory - Hematology and Cell countson 10-31-2024 Anisocytosis Ql (Bld) Slight Abnormal (none) [facility] Basophils (Bld) [#/Vol] 0.2 10*3/uL 0.0 - 0.2 10*3/uL [facility] Basophils/100 WBC (Bld) 1 % 0 - 2 % [facility] Eosinophils (Bld) [#/Vol] 1.2 10*3/uL High 0.0 - 0.5 10*3/uL [facility] Eosinophils/100 WBC (Bld) 7 % High 0 - 6 % [facility] Lymphocytes (Bld) [#/Vol] 1.5 10*3/uL 1.0 - 4.3 10*3/uL [facility] Lymphocytes/100 WBC (Bld) 9 % Low 15 - 45 % [facility] Monocytes (Bld) [#/Vol] 0.7 10*3/uL 0.0 - 0.9 10*3/uL [facility] Monocytes/100 WBC (Bld) 4 % Low 5 - 13 % [facility] Neutrophils (Bld) [#/Vol] 13.6 10*3/uL High 1.8 - 7.5 10*3/uL [facility] Ovalocytes LM Ql (Bld) Slight Abnormal (none) [facility] Poikilocytosis LM Ql (Bld) Slight Abnormal (none) [facility] RBC morphology finding Nom (Bld) abnormal [facility] Segmented neutrophils/100 WBC (Bld) 79 % 38 - 82 % [facility] No Panel Informationon 10-31 Interpretation and review of laboratory results Normal [facility] Interpretation and review of laboratory results Abnormal [facility] Interpretation and review of laboratory results Normal [facility] Interpretation and review of laboratory results Normal [facility] Basophils Manual 1 [facility] Eosinophils Manual 7 High 0 - 1 [facility] Interpretation and review of laboratory results Abnormal [facility] Lymphocytes Manual 9 [facility] Monocytes Manual 4 [facility] Neutrophils Manual 79 [facility] Interpretation and review of laboratory results Normal [facility] Bacteria identified Anaer cx Nom (Unsp spec)on 10-30-2024 Interpretation and review of laboratory results Normal [facility] Interpretation and review of laboratory results Normal [facility] Basic metabolic 1998 panelon 10-30-2024 Anion gap [Moles/Vol] 7 mmol/L 3 - 13 mmol/L [facility] Calcium [Mass/Vol] 7.7 mg/dL Low 8.8 - 10. 0 mg/dL [facility] Chloride [Moles/Vol] 110 mmol/L High 98 - 10 7 mmol/L [facility] CO2 [Moles/Vol] 26 mmol/L 23 - 31 mmol/L [facility] Creatinine [Mass/Vol] 3.52 mg/dL High 0.57 - 1.11 mg/dL [facility] GFR/1.73 sq M.predicted (S/P/Bld) [Vol rate/Area] 13.1 mL/min Low - PINF [facility] Glucose [Mass/Vol] 79 mg/dL Low 82 - 115 mg/dL [facility] Interpretation and review of laboratory results Abnormal [facility] Potassium [Moles/Vol] 4.2 mmol/L 3.5 - 5.1 mmol/L [facility] Sodium [Moles/Vol] 143 mmol/L 136 - 145 mmol/L [facility] Urea nitrogen [Mass/Vol] 21 mg/dL 9 - 23 mg/dL [facility] CBC W Auto Differential pane l (Bld)on 10-30-2024 Erythrocyte distribution width (RBC) [Ratio] 16.6 % High 11.5 - 15.0 % [facility] Hematocrit (Bld) [Volume fraction] 26.3 % Low 35.0 - 47.0 % [facility] Hemoglobin (Bld) [Mass/Vol] 8.3 g/dL Low 11.7 - 16.0 g/dL [facility] MCH (RBC) [Entitic mass] 29.1 pg 26.0 - 34.0 pg [facility] MCHC (RBC) [Mass/Vol] 31.6 % 30.5 - 36.0 % [facility] MCV (RBC) [Entitic vol] 92.3 fL 77.0 - 99.0 fL [facility] Platelet mean volume (Bld) [Entitic vol] 10.6 fL 9.0 - 12.7 fL [facility] Platelets (Bld) [#/Vol] 502 10*3/uL High 140 - 440 10*3/uL [facility] RBC (Bld) [#/Vol] 2.85 10*6/uL Low 3.80 - 5.2 0 10*6/uL [facility] WBC (Bld) [#/Vol] 18.2 10*3/uL High 3.6 - 10.7 10*3/uL [facility] Laboratory - Chemistry and C hemistry - challengeon 10-30-2024 Glucose [Mass/Vol] 79 mg/dL 70 - 100 mg/dL [facility] Glucose [Mass/Vol] 83 mg/dL 70 - 100 mg/dL [facility] Glucose [Mass/Vol] 92 mg/dL 70 - 100 mg/dL [facility] Glucose [Mass/Vol] 75 mg/dL 70 - 100 mg/dL [facility] Laboratory - Hematology and Cell countson 10-30-2024 Anisocytosis Ql (Bld) Slight Abnormal (none) [facility] Eosinophils (Bld) [#/Vol] 0.7 10*3/uL High 0.0 - 0.5 10*3/uL [facility] Eosinophils/100 WBC (Bld) 4 % 0 - 6 % [facility] Lymphocytes (Bld) [#/Vol] 0.7 10*3/uL Low 1.0 - 4.3 10*3/uL [facility] Lymphocytes/100 WBC (Bld) 4 % Low 15 - 45 % [facility] Monocytes (Bld) [#/Vol] 0.5 10*3/uL 0.0 - 0.9 10*3/uL [facility] Monocytes/100 WBC (Bld) 3 % Low 5 - 13 % [facility] Neutrophils (Bld) [#/Vol] 16.2 10*3/uL High 1.8 - 7.5 10*3/uL [facility] RBC morphology finding Nom (Bld) abnormal [facility] Segmented neutrophils/100 WBC (Bld) 89 % High 38 - 82 % [facility] Laboratory - Microbiology an d Antimicrobial susceptibilityon 10-30-2024 Bacteria identified Anaer cx Nom (Unsp spec) No growth at 5 days [facility] Bacteria identified Anaer cx Nom (Unsp spec) No growth at 5 days [facility] No Panel Informationon 10-30 Interpretation and review of laboratory results Normal [facility] Interpretation and review of laboratory results Normal [facility] Interpretation and review of laboratory results Normal [facility] Eosinophils Manual 4 High 0 - 1 [facility] Interpretation and review of laboratory results Abnormal [facility] Lymphocytes Manual 4 [facility] Monocytes Manual 3 [facility] Neutrophils Manual 89 [facility] Interpretation and review of laboratory results Normal [facility] Basic metabolic 1998 panelon 10-29-2024 Anion gap [Moles/Vol] 11 mmol/L 3 - 13 mmol/L [facility] Calcium [Mass/Vol] 7.9 mg/dL Low 8.8 - 10. 0 mg/dL [facility] Chloride [Moles/Vol] 108 mmol/L High 98 - 10 7 mmol/L [facility] CO2 [Moles/Vol] 24 mmol/L 23 - 31 mmol/L [facility] Creatinine [Mass/Vol] 2.73 mg/dL High 0.57 - 1.11 mg/dL [facility] GFR/1.73 sq M.predicted (S/P/Bld) [Vol rate/Area] 17.8 mL/min Low - PINF [facility] Glucose [Mass/Vol] 85 mg/dL 82 - 115 mg/dL [facility] Interpretation and review of laboratory results Abnormal [facility] Potassium [Moles/Vol] 3.9 mmol/L 3.5 - 5.1 mmol/L [facility] [facility] [Moles/Vol] 143 mmol/L 136 - 145 mmol/L [facility] Urea nitrogen [Mass/Vol] 14 mg/dL 9 - 23 mg/dL [facility] CBC W Auto Differential pane l (Bld)on 10-29-2024 Erythrocyte distribution width (RBC) [Ratio] 16.6 % High 11.5 - 15.0 % [facility] Hematocrit (Bld) [Volume fraction] 27.2 % Low 35.0 - 47.0 % [facility] Hemoglobin (Bld) [Mass/Vol] 8.8 g/dL Low 11.7 - 16.0 g/dL [facility] MCH (RBC) [Entitic mass] 29.1 pg 26.0 - 34.0 pg [facility] MCHC (RBC) [Mass/Vol] 32.4 % 30.5 - 36.0 % [facility] MCV (RBC) [Entitic vol] 90.1 fL 77.0 - 99.0 fL [facility] Platelet mean volume (Bld) [Entitic vol] 10.6 fL 9.0 - 12.7 fL [facility] Platelets (Bld) [#/Vol] 464 10*3/uL High 140 - 440 10*3/uL [facility] RBC (Bld) [#/Vol] 3.02 10*6/uL Low 3.80 - 5.2 0 10*6/uL [facility] WBC (Bld) [#/Vol] 22.8 10*3/uL High 3.6 - 10.7 10*3/uL [facility] Laboratory - Chemistry and C hemistry - challengeon 10-29-2024 Glucose [Mass/Vol] 119 mg/dL High 70 - 100 mg/dL [facility] Glucose [Mass/Vol] 76 mg/dL 70 - 100 mg/dL [facility] Glucose [Mass/Vol] 66 mg/dL Low 70 - 100 mg/dL [facility] Glucose [Mass/Vol] 80 mg/dL 70 - 100 mg/dL [facility] Glucose [Mass/Vol] 85 mg/dL 70 - 100 mg/dL [facility] Laboratory - Hematology and Cell countson 10-29-2024 Eosinophils (Bld) [#/Vol] 0.9 10*3/uL High 0.0 - 0.5 10*3/uL [facility] Eosinophils/100 WBC (Bld) 4 % 0 - 6 % [facility] Lymphocytes (Bld) [#/Vol] 1.4 10*3/uL 1.0 - 4.3 10*3/uL [facility] Lymphocytes/100 WBC (Bld) 6 % Low 15 - 45 % [facility] Monocytes (Bld) [#/Vol] 0.9 10*3/uL 0.0 - 0.9 10*3/uL [facility] Monocytes/100 WBC (Bld) 4 % Low 5 - 13 % [facility] Neutrophils (Bld) [#/Vol] 19.6 10*3/uL High 1.8 - 7.5 10*3/uL [facility] RBC morphology finding Nom (Bld) Normal [facility] Segmented neutrophils/100 WBC (Bld) 86 % High 38 - 82 % [facility] No Panel Informationon 10-29 Interpretation and review of laboratory results Abnormal [facility] Interpretation and review of laboratory results Normal [facility] Interpretation and review of laboratory results Abnormal [facility] Eosinophils Manual 4 High 0 - 1 [facility] Interpretation and review of laboratory results Abnormal [facility] Lymphocytes Manual 6 [facility] Monocytes Manual 4 [facility] Neutrophils Manual 87 [facility] Interpretation and review of laboratory results Normal [facility] Interpretation and review of laboratory results Normal [facility] Bacteria identified Cx Nom ( Bld)on 10-28-2024 Interpretation and review of laboratory results Normal [facility] Basic metabolic 1998 panelon 10-28-2024 Anion gap [Moles/Vol] 11 mmol/L 3 - 13 mmol/L [facility] Calcium [Mass/Vol] 8 mg/dL Low 8.8 - 10. 0 mg/dL [facility] Chloride [Moles/Vol] 109 mmol/L High 98 - 10 7 mmol/L [facility] CO2 [Moles/Vol] 24 mmol/L 23 - 31 mmol/L [facility] Creatinine [Mass/Vol] 3.83 mg/dL High 0.57 - 1.11 mg/dL [facility] GFR/1.73 sq M.predicted (S/P/Bld) [Vol rate/Area] 11.8 mL/min Low - PINF [facility] Glucose [Mass/Vol] 87 mg/dL 82 - 115 mg/dL [facility] Interpretation and review of laboratory results Abnormal [facility] Potassium [Moles/Vol] 3.9 mmol/L 3.5 - 5.1 mmol/L [facility] Sodium [Moles/Vol] 144 mmol/L 136 - 145 mmol/L [facility] Urea nitrogen [Mass/Vol] 24 mg/dL High 9 - 23 mg/dL [facility] CBC W Auto Differential pane l (Bld)on 10-28-2024 Erythrocyte distribution width (RBC) [Ratio] 16.4 % High 11.5 - 15.0 % [facility] Hematocrit (Bld) [Volume fraction] 28 % Low 35.0 - 47.0 % [facility] Hemoglobin (Bld) [Mass/Vol] 9.3 g/dL Low 11.7 - 16.0 g/dL [facility] MCH (RBC) [Entitic mass] 29.5 pg 26.0 - 34.0 pg [facility] MCHC (RBC) [Mass/Vol] 33.2 % 30.5 - 36.0 % [facility] MCV (RBC) [Entitic vol] 88.9 fL 77.0 - 99.0 fL [facility] Platelet mean volume (Bld) [Entitic vol] 10.7 fL 9.0 - 12.7 fL [facility] Platelets (Bld) [#/Vol] 460 10*3/uL High 140 - 440 10*3/uL [facility] RBC (Bld) [#/Vol] 3.15 10*6/uL Low 3.80 - 5.2 0 10*6/uL [facility] WBC (Bld) [#/Vol] 26.6 10*3/uL High 3.6 - 10.7 10*3/uL [facility] Laboratory - Chemistry and C hemistry - challengeon 10-28-2024 Glucose [Mass/Vol] 102 mg/dL High 70 - 100 mg/dL [facility] Glucose [Mass/Vol] 101 mg/dL High 70 - 100 mg/dL [facility] Glucose [Mass/Vol] 90 mg/dL 70 - 100 mg/dL [facility] Glucose [Mass/Vol] 98 mg/dL 70 - 100 mg/dL [facility] Glucose [Mass/Vol] 92 mg/dL 70 - 100 mg/dL [facility] Laboratory - Hematology and Cell countson 10-28-2024 Anisocytosis Ql (Bld) Slight Abnormal (none) [facility] Basophils (Bld) [#/Vol] 0.3 10*3/uL High 0.0 - 0.2 10*3/uL [facility] Basophils/100 WBC (Bld) 1 % 0 - 2 % [facility] Eosinophils (Bld) [#/Vol] 0.5 10*3/uL 0.0 - 0.5 10*3/uL [facility] Eosinophils/100 WBC (Bld) 2 % 0 - 6 % [facility] Lymphocytes (Bld) [#/Vol] 1.9 10*3/uL 1.0 - 4.3 10*3/uL [facility] Lymphocytes/100 WBC (Bld) 7 % Low 15 - 45 % [facility] Monocytes (Bld) [#/Vol] 1.1 10*3/uL High 0.0 - 0.9 10*3/uL [facility] Monocytes/100 WBC (Bld) 4 % Low 5 - 13 % [facility] Neutrophils (Bld) [#/Vol] 22.6 10*3/uL High 1.8 - 7.5 10*3/uL [facility] RBC morphology finding Nom (Bld) abnormal [facility] Segmented neutrophils/100 WBC (Bld) 85 % High 38 - 82 % [facility] Laboratory - Microbiology an d Antimicrobial susceptibilityon 10-28-2024 Bacteria identified Cx Nom (Bld) No growth at 5 days [facility] No Panel Informationon 10-28 Interpretation and review of laboratory results Abnormal [facility] Interpretation and review of laboratory results Abnormal [facility] Interpretation and review of laboratory results Normal [facility] Basophils Manual 1 [facility] Eosinophils Manual 2 High 0 - 1 [facility] Interpretation and review of laboratory results Abnormal [facility] Lymphocytes Manual 7 [facility] Monocytes Manual 4 [facility] Neutrophils Manual 88 [facility] Interpretation and review of laboratory results Normal [facility] Interpretation and review of laboratory results Normal [facility] Bacteria identified Cx Nom ( Bld)on 10-27-2024 Interpretation and review of laboratory results Normal [facility] Laboratory - Chemistry and C hemistry - challengeon 10-27-2024 Glucose [Mass/Vol] 100 mg/dL 70 - 100 mg/dL [facility] Glucose [Mass/Vol] 72 mg/dL 70 - 100 mg/dL [facility] - Microbiology an d Antimicrobial susceptibilityon 10-27-2024 Bacteria identified Cx Nom (Bld) No growth at 5 days [facility] No Panel Informationon 10-27 Interpretation and review of laboratory results Normal [facility] CBC panel Auto (Bld)on 09-06 Erythrocyte distribution width (RBC) [Ratio] 15.5 % High 11.5 - 14.5 % [facility] Hematocrit (Bld) [Volume fraction] 24.9 % Low 36.0 - 46.0 % [facility] Hemoglobin (Bld) [Mass/Vol] 7.6 g/dL Low 12.0 - 16.0 g/dL [facility] Interpretation and review of laboratory results Abnormal [facility] MCH (RBC) [Entitic mass] 30.8 pg 26.0 - 34.0 pg [facility] MCHC (RBC) [Mass/Vol] 30.5 g/dL Low 32.0 - 36.0 g/dL [facility] MCV (RBC) [Entitic vol] 101 fL High 80 - 100 fL [facility] Nucleated RBC/100 WBC (Bld) [Ratio] 0 % [facility] Platelets (Bld) [#/Vol] 488 10*3/uL High [facility] RBC (Bld) [#/Vol] 2.47 10*6/uL Low [facility] WBC (Bld) [#/Vol] 7.9 10*3/uL [facility] Erythrocyte distribution width (RBC) [Ratio] 15.5 % High 11.5-14.5 [facility] Comment on above: Performed By: #### 2 777-1 #### KELECHI Garcia ([id number]) [facility] ([facility]) [address] [place] [address] Hematocrit (Bld) [Volume fraction] 24.9 % Low 36.0-46.0 [facility] Comment on above: Performed By: #### 2 777-1 #### KELECHI Garcia ([id number]) [facility] ([facility]) [address] [place] [address] Hemoglobin (Bld) [Mass/Vol] 7.6 g/dL Low 12.0-16.0 [facility] Comment on above: Performed By: #### 2 777-1 #### KELECHI Garcia ([id number]) [facility] ([facility]) [id number] [place] [address] 40880 MCH (RBC) [Entitic mass] 30.8 pg Normal 26.0-34.0 [facility] Comment on above: Performed By: #### 2 777-1 #### KELECHI Garcia ([id number]) [facility] ([facility]) [address] [place] [address] MCHC (RBC) [Mass/Vol] 30.5 g/dL Low 32.0-36.0 [facility] Comment on above: Performed By: #### 2 777-1 #### KELECHI Garcia ([id number]) [facility] ([facility]) [address] [place] [address] MCV (RBC) [Entitic vol] 101 fL High 80-100 [facility] Comment on above: Performed By: #### 2 777-1 #### KELECHI Garcia ([id number]) [facility] ([facility]) [id number] [place] [address] 39665 Nucleated RBC/100 WBC (Bld) [Ratio] 0.0 /100 WBCs Normal 0.0-0.0 [facility] Comment on above: Performed By: #### 2 777-1 #### KELECHI Garcia ([id number]) [facility] ([facility]) [id number] [place] [address] 15337 Platelets (Bld) [#/Vol] 488 x10*3/uL High 150-450 [facility] Comment on above: Performed By: #### 2 777-1 #### KELECHI Garcia ([id number]) [facility] ([facility]) [address] [place] [address] RBC (Bld) [#/Vol] 2.47 x10*6/uL Low 4.00-5.20 [facility] Comment on above: Performed By: #### 2 777-1 #### KELECHI Garcia ([id number]) [facility] ([facility]) [id number] [place] [address] 68709 WBC (Bld) [#/Vol] 7.9 x10*3/uL Normal 4.4-11.[address] [facility] Comment on above: Performed By: #### 2 777-1 #### KELECHI Garcia ([id number]) [facility] ([facility]) [address] [place] [address] Glucose Test strip manual (B ld) [Mass/Vol]on 09-06-2024 Glucose [Mass/Vol] 121 mg/dL High 74 - 99 mg/dL [facility] Interpretation and review of laboratory results Abnormal [facility] Glucose [Mass/Vol] 121 mg/dL High 74-99 [facility] Comment on above: Performed By: #### 2 777-1 #### KELECHI Garcia ([id number]) [facility] ([facility]) [address] [place] [id number] Renal function 2000 panelon 09-06-2024 Albumin BCP dye [Mass/Vol] 3.2 g/dL Low 3.4 - 5.0 g/dL [facility] Anion gap [Moles/Vol] 16 mmol/L 10 - 2 0 mmol/L [facility] Calcium [Mass/Vol] 8.1 mg/dL Low 8.6 - 10. 6 mg/dL [facility] Chloride [Moles/Vol] 100 mmol/L 98 - 10 7 mmol/L [facility] CO2 [Moles/Vol] 31 mmol/L 21 - 32 mmol/L [facility] Creatinine [Mass/Vol] 5.52 mg/dL High 0.50 - 1.05 mg/dL [facility] GFR/1.73 sq M.predicted among non-blacks MDRD (S/P/Bld) [Vol rate/Area] 8 mL/min/{1.73_m2} Low - PINF [facility] Comment on above: Calculations of katy mated GFR are performed using the 2020 CKD-EPI Study Refit equation without the race variable for the IDMS-Traceable creatinine methods. https://jasn.asnjournals.org/content/early/ASN.2020 675261 Glucose [Mass/Vol] 118 mg/dL High 74 - 99 mg/dL [facility] Interpretation and review of laboratory results Abnormal [facility] Phosphate [Mass/Vol] 2.2 mg/dL Low 2.5 - 4 .9 mg/dL [facility] Potassium [Moles/Vol] 3.9 mmol/L 3.5 - 5.3 mmol/L [facility] Sodium [Moles/Vol] 143 mmol/L 136 - 145 mmol/L [facility] Urea nitrogen [Mass/Vol] 35 mg/dL High 6 - 23 mg/dL [facility] Albumin BCP dye [Mass/Vol] 3.2 g/dL Low 3.4-5.0 [facility] Comment on above: Performed By: #### 2 777-1 #### KELECHI Garcia ([id number]) [facility] ([facility]) [address] [place] [address] Anion gap [Moles/Vol] 16 mmol/L Normal 10-20 [facility] Comment on above: Performed By: #### 2 777-1 #### KELECHI VELÁZQUEZ L ([id number]) [facility] ([facility]) [id number] [place] [address]376 Calcium [Mass/Vol] 8.1 mg/dL Low 8.6-10.6 [facility] Comment on above: Performed By: #### 2 777-1 #### KELECHI VELÁZQUEZ L ([id number]) [facility] ([facility]) [address] [place] [address] Chloride [Moles/Vol] 100 mmol/L Normal 98-107 [facility] Comment on above: Performed By: #### 2 777-1 #### KELECHI VELEZMOTZMARCY L ([id number]) [facility] ([facility]) [address] [place] [address] CO2 [Moles/Vol] 31 mmol/L Normal 21-32 [facility] Comment on above: Performed By: #### 2 777-1 #### KELECHI VELEZMOTZMARCY L ([id number]) [facility] ([facility]) [address] [place] [address] Creatinine [Mass/Vol] 5.52 mg/dL High 0.50-1.05 [facility] Comment on above: Performed By: #### 2 777-1 #### KELECHI VELÁZQUEZ L ([id number]) [facility] ([facility]) [id number] [place] [address]37 Glomerular filtration rate/1.73 sq M.predicted 8 mL/min/1.73m*2 Low >60 [facility] Comment on above: Result Comment: Calc ulations of estimated GFR are performed using the 2020 CKD-EPI Study Refit equation without the race variable for the IDMS-Traceable creatinine methods. https://jasn.asnjournals.org/content/early//ASN.2020 160867 Performed By: #### 2 777-1 #### KELECHI VELÁZQUEZ L ([id number]) [facility] ([facility]) [address] [place] [address]289 Glucose [Mass/Vol] 118 mg/dL High 74-99 [facility] Comment on above: Performed By: #### 2 777-1 #### KELECHI VELÁZQUEZ L ([id number]) [facility] ([facility]) [id number] [place] [address] Phosphate [Mass/Vol] 2.2 mg/dL Low 2.5-4.9 [facility] Comment on above: Performed By: #### 2 777-1 #### KELECHI VELEZMOTZER L ([id number]) [facility] ([facility]) [id number] [place] [address] Potassium [Moles/Vol] 3.9 mmol/L Normal 3.5-5.3 [facility] Comment on above: Performed By: #### 2 777-1 #### KELECHI VELEZMOTZER L ([id number]) [facility] ([facility]) [address] [place] [address]60 Sodium [Moles/Vol] 143 mmol/L Normal 136-145 [facility] Comment on above: Performed By: #### 2 777-1 #### KELECHI VELÁZQUEZ L ([id number]) [facility] ([facility]) [address] [place] [address] Urea nitrogen [Mass/Vol] 35 mg/dL High 6-23 [facility] Comment on above: Performed By: #### 2 777-1 #### KELECHI Garcia ([id number]) [facility] ([facility]) [address] [place] [address] CBC W Auto Differential pane l (Bld)on 09-05-2024 Basophils (Bld) [#/Vol] 0.04 10*3/uL [facility] Basophils/100 WBC (Bld) 0.6 % 0.0 - 2.0 % [facility] Eosinophils (Bld) [#/Vol] 0.33 10*3/uL [facility] Eosinophils/100 WBC (Bld) 4.7 % 0.0 - 6.0 % [facility] Erythrocyte distribution width (RBC) [Ratio] 15.1 % High 11.5 - 14.5 % [facility] Hematocrit (Bld) [Volume fraction] 22.5 % Low 36.0 - 46.0 % [facility] Hemoglobin (Bld) [Mass/Vol] 7.2 g/dL Low 12.0 - 16.0 g/dL [facility] Immature granulocytes (Bld) [#/Vol] 0.06 10*3/uL [facility] Immature granulocytes/100 WBC (Bld) 0.9 % 0.0 - 0.9 % [facility] Comment on above: Immature Granulocyte Count (IG) includes promyelocytes, myelocytes and metamyelocytes but does not include bands. Percent differential counts (%) should be interpreted in the context of the absolute cell counts (cells/UL). Interpretation and review of laboratory results Abnormal [facility] Lymphocytes (Bld) [#/Vol] 1 10*3/uL [facility] Lymphocytes/100 WBC (Bld) 14.4 % 13.0 - 44.0 % [facility] MCH (RBC) [Entitic mass] 31 pg 26.0 - 34.0 pg [facility] MCHC (RBC) [Mass/Vol] 32 g/dL 32.0 - 36.0 g/dL [facility] MCV (RBC) [Entitic vol] 97 fL 80 - 100 fL [facility] Monocytes (Bld) [#/Vol] 0.56 10*3/uL [facility] Monocytes/100 WBC (Bld) 8 % 2.0 - 10.0 % [facility] Neutrophils (Bld) [#/Vol] 4.97 10*3/uL [facility] Comment on above: Percent differential counts (%) should be interpreted in the context of the absolute cell counts (cells/uL). Neutrophils/100 WBC (Bld) 71.4 % 40.0 - 80.0 % [facility] Nucleated RBC/100 WBC (Bld) [Ratio] 0 % [facility] Platelets (Bld) [#/Vol] 404 10*3/uL [facility] RBC (Bld) [#/Vol] 2.32 10*6/uL [facility] WBC (Bld) [#/Vol] 7 10*3/uL [facility] Basophils (Bld) [#/Vol] 0.04 x10*3/uL Normal 0.00-0.10 [facility] Comment on above: Performed By: #### 2 777-1 #### KELECHI Garcia ([id number]) [facility] ([facility]) [address] [place] [address] Basophils/100 WBC (Bld) 0.6 % Normal 0.0-2.0 [facility] Comment on above: Performed By: #### 2 777-1 #### KELECHI Garcia ([id number]) [facility] ([facility]) [address] [place] [address] Eosinophils (Bld) [#/Vol] 0.33 x10*3/uL Normal 0.00-0.40 [facility] Comment on above: Performed By: #### 2 777-1 #### KELECHI Garcia ([id number]) [facility] ([facility]) [address] [place] [address] Eosinophils/100 WBC (Bld) 4.7 % Normal 0.0-6.0 [facility] Comment on above: Performed By: #### 2 777-1 #### KELECHI Garcia ([id number]) [facility] ([facility]) [address] [place] [address]127 Erythrocyte distribution width (RBC) [Ratio] 15.1 % High 11.5-14.5 [facility] Comment on above: Performed By: #### 2 777-1 #### KELECHI Garcia ([id number]) [facility] ([facility]) [address] [place] [address]15 Hematocrit (Bld) [Volume fraction] 22.5 % Low 36.0-46.0 [facility] Comment on above: Performed By: #### 2 777-1 #### KELECHI Garcia ([id number]) [facility] ([facility]) [address] [place] [address] Hemoglobin (Bld) [Mass/Vol] 7.2 g/dL Low 12.0-16.0 [facility] Comment on above: Performed By: #### 2 777-1 #### KELECHI Garcia ([id number]) [facility] ([facility]) [address] [place] [address]1990 Immature granulocytes (Bld) [#/Vol] 0.06 x10*3/uL Normal 0.00-0.50 [facility] Comment on above: Performed By: #### 2 777-1 #### KELECHI Garcia ([id number]) [facility] ([facility]) [address] [place] [address]54 Immature granulocytes/100 WBC (Bld) 0.9 % Normal 0.0-0.9 [facility] Comment on above: Result Comment: Jannie ture Granulocyte Count (IG) includes promyelocytes, myelocytes and metamyelocytes but does not include bands. Percent differential counts (%) should be interpreted in the context of the absolute cell counts (cells/UL). Performed By: #### 2 777-1 #### KELECHI Garcia ([id number]) [facility] ([facility]) [address] [place] [address] [place] [address] Lymphocytes (Bld) [#/Vol] 1.00 x10*3/uL Normal 0.80-3.00 [facility] Comment on above: Performed By: #### 2 777-1 #### KELECHI Garcia ([id number]) [facility] ([facility]) [address] [place] [address] Lymphocytes/100 WBC (Bld) 14.4 % Normal 13.0-44.0 [facility] Comment on above: Performed By: #### 2 777-1 #### KELECHI Garcia ([id number]) [facility] ([facility]) [id number] [place] [address] 47178 MCH (RBC) [Entitic mass] 31.0 pg Normal 26.0-34.0 [facility] Comment on above: Performed By: #### 2 777-1 #### KELECHI Garcia ([id number]) [facility] ([facility]) [id number] [place] [address]106 MCHC (RBC) [Mass/Vol] 32.0 g/dL Normal 32.0-36.0 [facility] Comment on above: Performed By: #### 2 777-1 #### KELECHI Garcia ([id number]) [facility] ([facility]) [id number] [place] [address] 11694 MCV (RBC) [Entitic vol] 97 fL Normal 80-100 [facility] Comment on above: Performed By: #### 2 777-1 #### KELECHI Garcia ([id number]) [facility] ([facility]) [id number] [place] [address]677 Monocytes (Bld) [#/Vol] 0.56 x10*3/uL Normal 0.05-0.80 [facility] Comment on above: Performed By: #### 2 777-1 #### KELECHI Garcia ([id number]) [facility] ([facility]) [address] [place] [address] Monocytes/100 WBC (Bld) 8.0 % Normal 2.0-10.0 U [facility] Comment on above: Performed By: #### 2 777-1 #### KELECHI Garcia ([id number]) [facility] ([facility]) [id number] [place] [address] 18885 Neutrophils (Bld) [#/Vol] 4.97 x10*3/uL Normal 1.60-5.50 [facility] Comment on above: Result Comment: Perc ent differential counts (%) should be interpreted in the context of the absolute cell counts (cells/uL). Performed By: #### 2 777-1 #### KELECHI Garcia ([id number]) [facility] ([facility]) [address] [place] [address] 94342 Neutrophils/100 WBC (Bld) 71.4 % Normal 40.0-80.0 [facility] Comment on above: Performed By: #### 2 777-1 #### KELECHI Garcia ([id number]) [facility] ([facility]) [id number] [place] [address] 63788 Nucleated RBC/100 WBC (Bld) [Ratio] 0.0 /100 WBCs Normal 0.0-0.0 [facility] Comment on above: Performed By: #### 2 777-1 #### KELECHI Garcia ([id number]) [facility] ([facility]) [address] [place] [address] 32387 Platelets (Bld) [#/Vol] 404 x10*3/uL Normal 150-450 [facility] Comment on above: Performed By: #### 2 777-1 #### KELECHI VELÁZQUEZ L ([id number]) [facility] ([facility]) [address] [place] [address] RBC (Bld) [#/Vol] 2.32 x10*6/uL Low 4.00-5.20 [facility] Comment on above: Performed By: #### 2 777-1 #### KELECHI Garcia ([id number]) [facility] ([facility]) [address] [place] [id number] WBC (Bld) [#/Vol] 7.0 x10*3/uL Normal 4.4-11.[address] [facility] Comment on above: Performed By: #### 2 777-1 #### KELECHI Garcia ([id number]) [facility] ([facility]) [address] [place] [id number] Renal function 2000 panelOrd ered By: Alice Juan on 09-05-2024 Albumin BCP dye [Mass/Vol] 2.9 g/dL Low 3.4 - 5.0 g/dL [facility] Anion gap [Moles/Vol] 17 mmol/L 10 - 2 0 mmol/L [facility] Calcium [Mass/Vol] 8 mg/dL Low 8.6 - 10. 6 mg/dL [facility] Chloride [Moles/Vol] 98 mmol/L 98 - 10 7 mmol/L [facility] CO2 [Moles/Vol] 27 mmol/L 21 - 32 mmol/L [facility] Creatinine [Mass/Vol] 7.78 mg/dL High 0.50 - 1.05 mg/dL [facility] GFR/1.73 sq M.predicted among non-blacks MDRD (S/P/Bld) [Vol rate/Area] 5 mL/min/{1.73_m2} Low - PINF [facility] Comment on above: Calculations of katy mated GFR are performed using the 2020 CKD-EPI Study Refit equation without the race variable for the IDMS-Traceable creatinine methods. https://jasn.asnjournals.org/content/early//ASN.2020 005945 Glucose [Mass/Vol] 92 mg/dL 74 - 99 mg/dL [facility] Interpretation and review of laboratory results Abnormal [facility] Phosphate [Mass/Vol] 2.3 mg/dL Low 2.5 - 4 .9 mg/dL [facility] Potassium [Moles/Vol] 4.5 mmol/L 3.5 - 5.3 mmol/L [facility] Sodium [Moles/Vol] 137 mmol/L 136 - 145 mmol/L [facility] Urea nitrogen [Mass/Vol] 61 mg/dL High 6 - 23 mg/dL [facility] Renal function 2000 panelon 09-05-2024 Albumin BCP dye [Mass/Vol] 2.9 g/dL Low 3.4-5.0 [facility] Comment on above: Performed By: #### 2 777-1 #### KELECHI Garcia ([id number]) [facility] ([facility]) [address] [place] [address] Anion gap [Moles/Vol] 17 mmol/L Normal 10-20 [facility] Comment on above: Performed By: #### 2 777-1 #### KELECHI VELÁZQUEZ L ([id number]) [facility] ([facility]) [address] [place] [address] 39084 Calcium [Mass/Vol] 8.0 mg/dL Low 8.6-10.6 [facility] Comment on above: Performed By: #### 2 777-1 #### KELECHI VELÁZQUEZ L ([id number]) [facility] ([facility]) [id number] [place] [address] 15775 Chloride [Moles/Vol] 98 mmol/L Normal 98-107 [facility] Comment on above: Performed By: #### 2 777-1 #### KELECHI VELÁZQUEZ L ([id number]) [facility] ([facility]) [address] [place] [address] 00655 CO2 [Moles/Vol] 27 mmol/L Normal 21-32 [facility] Comment on above: Performed By: #### 2 777-1 #### KELECHI VELÁZQUEZ L ([id number]) [facility] ([facility]) [address] [place] [address] Creatinine [Mass/Vol] 7.78 mg/dL High 0.50-1.05 [facility] Comment on above: Performed By: #### 2 777-1 #### KELECHI VELÁZQUEZ L ([id number]) [facility] ([facility]) [address] [place] [address] 90254 Glomerular filtration rate/1.73 sq M.predicted 5 mL/min/1.73m*2 Low >60 [facility] Comment on above: Result Comment: Calc ulations of estimated GFR are performed using the 2020 CKD-EPI Study Refit equation without the race variable for the IDMS-Traceable creatinine methods. https://jasn.asnjournals.org/content//ASN.2020 269570 Performed By: #### 2 777-1 #### KELECHI Garcia ([id number]) [facility] ([facility]) [address] [place] [address] Glucose [Mass/Vol] 92 mg/dL Normal 74-99 [facility] Comment on above: Performed By: #### 2 777-1 #### KELECHI VELÁZQUEZ L ([id number]) [facility] ([facility]) [address] [place] [address] Phosphate [Mass/Vol] 2.3 mg/dL Low 2.5-4.9 [facility] Comment on above: Performed By: #### 2 777-1 #### KELECHI VELÁZQUEZ L ([id number]) [facility] ([facility]) [address] [place] [address] Potassium [Moles/Vol] 4.5 mmol/L Normal 3.5-5.3 [facility] Comment on above: Performed By: #### 2 777-1 #### KELECHI VELÁZQUEZ L ([id number]) [facility] ([facility]) [address] [place] [address] Sodium [Moles/Vol] 137 mmol/L Normal 136-145 [facility] Comment on above: Performed By: #### 2 777-1 #### KELECHI VELÁZQUEZ L ([id number]) [facility] ([facility]) [address] [place] [address] 19953 Urea nitrogen [Mass/Vol] 61 mg/dL High 6-23 [facility] Comment on above: Performed By: #### 2 777-1 #### KELECHI Garcia ([id number]) [facility] ([facility]) [address] [place] [address] Basic metabolic 2000 panelon 09-04-2024 Anion gap [Moles/Vol] 16 mmol/L 10 - 2 0 mmol/L [facility] Calcium [Mass/Vol] 8.7 mg/dL 8.6 - 10. 6 mg/dL [facility] Chloride [Moles/Vol] 94 mmol/L Low 98 - 10 7 mmol/L [facility] CO2 [Moles/Vol] 30 mmol/L 21 - 32 mmol/L [facility] Creatinine [Mass/Vol] 6.79 mg/dL High 0.50 - 1.05 mg/dL [facility] GFR/1.73 sq M.predicted among non-blacks MDRD (S/P/Bld) [Vol rate/Area] 6 mL/min/{1.73_m2} Low - PINF [facility] Comment on above: Calculations of katy mated GFR are performed using the 2020 CKD-EPI Study Refit equation without the race variable for the IDMS-Traceable creatinine methods. https://jasn.asnjournals.org/content//ASN.2020 346757 Glucose [Mass/Vol] 171 mg/dL High 74 - 99 mg/dL [facility] Interpretation and review of laboratory results Abnormal [facility] Potassium [Moles/Vol] 4.1 mmol/L 3.5 - 5.3 mmol/L [facility] Sodium [Moles/Vol] 136 mmol/L 136 - 145 mmol/L [facility] Urea nitrogen [Mass/Vol] 58 mg/dL High 6 - 23 mg/dL [facility] Anion gap [Moles/Vol] 16 mmol/L Normal 10-20 [facility] Comment on above: Performed By: #### 2 777-1 #### KELECHI Garcia ([id number]) [facility] ([facility]) [address] [place] [address] Calcium [Mass/Vol] 8.7 mg/dL Normal 8.6-10.6 [facility] Comment on above: Performed By: #### 2 777-1 #### KEELCHI TAOTZER L ([id number]) [facility] ([facility]) [address] [place] [address] Chloride [Moles/Vol] 94 mmol/L Low 98-107 [facility] Comment on above: Performed By: #### 2 777-1 #### KELECHI VELEZMOTZER L ([id number]) [facility] ([facility]) [address] [place] [address] CO2 [Moles/Vol] 30 mmol/L Normal 21-32 [facility] Comment on above: Performed By: #### 2 777-1 #### KELECHI VELEZMOTZER L ([id number]) [facility] ([facility]) [address] [place] [address] 99587 Creatinine [Mass/Vol] 6.79 mg/dL High 0.50-1.05 [facility] Comment on above: Performed By: #### 2 777-1 #### KELECHI WEBSTERER L ([id number]) [facility] ([facility]) [address] [place] [address] 50058 Glomerular filtration rate/1.73 sq M.predicted 6 mL/min/1.73m*2 Low >60 [facility] Comment on above: Result Comment: Calc ulations of estimated GFR are performed using the 2020 CKD-EPI Study Refit equation without the race variable for the IDMS-Traceable creatinine methods. https://jasn.asnjournals.org/content/early//ASN.2020 054890 Performed By: #### 2 777-1 #### KELECHI TAOTZER L ([id number]) [facility] ([facility]) [address] [place] [address] 25871 Glucose [Mass/Vol] 171 mg/dL High 74-99 [facility] Comment on above: Performed By: #### 2 777-1 #### KELECHI VELEZMOTZER L ([id number]) [facility] ([facility]) [address] [place] [address] Potassium [Moles/Vol] 4.1 mmol/L Normal 3.5-5.3 [facility] Comment on above: Performed By: #### 2 777-1 #### KELECHI VELÁZQUEZ L ([id number]) [facility] ([facility]) [address] [place] [address] Sodium [Moles/Vol] 136 mmol/L Normal 136-145 [facility] Comment on above: Performed By: #### 2 777-1 #### KELECHI VELÁZQUEZ L ([id number]) [facility] ([facility]) [address] [place] [address] 34030 Urea nitrogen [Mass/Vol] 58 mg/dL High 6-23 [facility] Comment on above: Performed By: #### 2 777-1 #### KELECHI VELÁZQUEZ L ([id number]) [facility] ([facility]) [address] [place] [address] 99714 CBC W Auto Differential pane l (Bld)Ordered By: Cheryl Brooks on 09-04-2024 Basophils (Bld) [#/Vol] U [facility] Basophils/100 WBC (Bld) U [facility] Eosinophils (Bld) [#/Vol] [facility] Eosinophils/100 WBC (Bld) [facility] Erythrocyte distribution width (RBC) [Ratio] [facility] Comment on above: qns Hematocrit (Bld) [Volume fraction] [facility] Comment on above: qns Hemoglobin (Bld) [Mass/Vol] [facility] Comment on above: qns Immature granulocytes/100 WBC (Bld) [facility] Comment on above: qns Lymphocytes (Bld) [#/Vol] [facility] Lymphocytes/100 WBC (Bld) [facility] MCHC (RBC) [Mass/Vol] [facility] Comment on above: qns MCV (RBC) [Entitic vol] U [facility] Comment on above: qns Monocytes (Bld) [#/Vol] U [facility] Monocytes/100 WBC (Bld) U [facility] Neutrophils (Bld) [#/Vol] [facility] Neutrophils/100 WBC (Bld) [facility] Platelets (Bld) [#/Vol] U [facility] Comment on above: qns RBC (Bld) [#/Vol] [facility] Comment on above: qns WBC (Bld) [#/Vol] [facility] Comment on above: qns [facility] CBC W Auto Differential pane l (Bld)on 09-04-2024 Basophils (Bld) [#/Vol] Normal [facility] Comment on above: Performed By: #### 1 9123-9 #### KELECHI Garcia ([id number]) [facility] ([facility]) [address] [place] [address] 99093 Basophils/100 WBC (Bld) Normal [facility] Comment on above: Performed By: #### 1 9123-9 #### KELECHI Garcia ([id number]) [facility] ([facility]) [address] [place] [address] 32707 Eosinophils (Bld) [#/Vol] [facility] Comment on above: Performed By: #### 1 9123-9 #### KELECHI Garcia ([id number]) [facility]) [address] [place] [address] 57913 Eosinophils/100 WBC (Bld) [facility] Comment on above: Performed By: #### 1 9123-9 #### KELECHI Garcia ([id number]) [facility] ([facility]) [address] [place] [address] 88772 Erythrocyte distribution width (RBC) [Ratio] [facility] Comment on above: Result Comment: qns Performed By: #### 1 9123-9 #### KELECHI Garcia ([id number]) [facility] ([facility]) [address] [place] [address] 26658 Hematocrit (Bld) [Volume fraction] [facility] Comment on above: Result Comment: qns Performed By: #### 1 9123-9 #### KELECHI Garcia ([id number]) [facility] ([facility]) [address] [place] [address] 20086 Hemoglobin (Bld) [Mass/Vol] Normal [facility] Comment on above: Result Comment: qns Performed By: #### 1 9123-9 #### KELECHI Garcia ([id number]) [facility] ([facility]) [address] [place] [address] 75759 Immature granulocytes/100 WBC (Bld) [facility] Comment on above: Result Comment: qns Performed By: #### 1 9123-9 #### KELECHI Garcia ([id number]) [facility] ([facility]) [address] [place] [address] 54422 Lymphocytes (Bld) [#/Vol] [facility] Comment on above: Performed By: #### 1 9123-9 #### KELECHI Garcia ([id number]) [facility] ([facility]) [address] [place] [address] 88333 Lymphocytes/100 WBC (Bld) [facility] Comment on above: Performed By: #### 1 9123-9 #### KELECHI Garcia ([id number]) [facility] ([facility]) [address] [place] [address] 12243 MCHC (RBC) [Mass/Vol] Normal [facility] Comment on above: Result Comment: qns Performed By: #### 1 9123-9 #### KELECHI Garcia ([id number]) [facility] ([facility]) [address] [place] [address] 18556 MCV (RBC) [Entitic vol] Normal [facility] Comment on above: Result Comment: qns Performed By: #### 1 9123-9 #### KELECHI Garcia ([id number]) [facility] ([facility]) [address] [place] [address] 97674 Monocytes (Bld) [#/Vol] Normal [facility] Comment on above: Performed By: #### 1 9123-9 #### KELECHI Garcia ([id number]) [facility] ([facility]) [address] [place] [address] 24735 Monocytes/100 WBC (Bld) Normal [facility] Comment on above: Performed By: #### 1 9123-9 #### KELECHI VELÁZQUEZ L ([id number]) [facility] ([facility]) [address] [place] [address] 68860 Neutrophils (Bld) [#/Vol] Normal [facility] Comment on above: Performed By: #### 1 9123-9 #### KELECHI Garcia ([id number]) [facility] ([facility]) [address] [place] [address] 90847 Neutrophils/100 WBC (Bld) [facility] Comment on above: Performed By: #### 1 9123-9 #### KELECHI Garcia ([id number]) [facility] ([facility]) [address] [place] [address] 15117 Platelets (Bld) [#/Vol] Normal [facility] Comment on above: Result Comment: qns Performed By: #### 1 9123-9 #### KELECHI Garcia ([id number]) [facility] ([facility]) [address] [place] [address] 86779 RBC (Bld) [#/Vol] Normal [facility] Comment on above: Result Comment: qns Performed By: #### 1 9123-9 #### KELECHI Garcia ([id number]) [facility] ([facility]) [address] [place] [address] 70556 WBC (Bld) [#/Vol] Normal [facility] Comment on above: Result Comment: qns Performed By: #### 1 9123-9 #### KELECHI Garcia ([id number]) [facility] ([facility]) [address] [place] [address] 14448 Basic metabolic 2000 panelon 09-03-2024 Anion gap [Moles/Vol] 12 mmol/L 10 - 2 0 mmol/L [facility] Calcium [Mass/Vol] 7.8 mg/dL Low 8.6 - 10. 6 mg/dL [facility] Chloride [Moles/Vol] 98 mmol/L 98 - 10 7 mmol/L [facility] CO2 [Moles/Vol] 33 mmol/L High 21 - 32 mmol/L [facility] Creatinine [Mass/Vol] 4.58 mg/dL High 0.50 - 1.05 mg/dL [facility] GFR/1.73 sq M.predicted among non-blacks MDRD (S/P/Bld) [Vol rate/Area] 10 mL/min/{1.73_m2} Low - PINF [facility] Comment on above: Calculations of katy mated GFR are performed using the 2020 CKD-EPI Study Refit equation without the race variable for the IDMS-Traceable creatinine methods. https://jasn.asnjournals.org/content//ASN.2020 233872 Glucose [Mass/Vol] 87 mg/dL 74 - 99 mg/dL [facility] Interpretation and review of laboratory results Abnormal [facility] Potassium [Moles/Vol] 4.3 mmol/L 3.5 - 5.3 mmol/L [facility] Sodium [Moles/Vol] 139 mmol/L 136 - 145 mmol/L [facility] Urea nitrogen [Mass/Vol] 28 mg/dL High 6 - 23 mg/dL [facility] Anion gap [Moles/Vol] 12 mmol/L Normal 10-20 [facility] Comment on above: Performed By: #### 1 9123-9 #### KELECHI Garcia ([id number]) [facility] ([facility]) [address] [place] [address] 03542 Calcium [Mass/Vol] 7.8 mg/dL Low 8.6-10.6 [facility] Comment on above: Performed By: #### 1 9123-9 #### KELECHI Garcia ([id number]) [facility] ([facility]) [address] [place] [address] Chloride [Moles/Vol] 98 mmol/L Normal 98-107 [facility] Comment on above: Performed By: #### 1 9123-9 #### KELECHI Garcia ([id number]) [facility] ([facility]) [address] [place] [address] CO2 [Moles/Vol] 33 mmol/L High 21-32 [facility] Comment on above: Performed By: #### 1 9123-9 #### KELECHI Garcia ([id number]) [facility] ([facility]) [address] [place] [address] Creatinine [Mass/Vol] 4.58 mg/dL High 0.50-1.05 [facility] Comment on above: Performed By: #### 1 9123-9 #### KELECHI Garcia ([id number]) [facility] ([facility]) [address] [place] [address] 67390 Glomerular filtration rate/1.73 sq M.predicted 10 mL/min/1.73m*2 Low >60 [facility] Comment on above: Result Comment: Calc ulations of estimated GFR are performed using the 2020 CKD-EPI Study Refit equation without the race variable for the IDMS-Traceable creatinine methods. https://jasn.asnjournals.org/content/early//ASN.2020 769327 Performed By: #### 1 9123-9 #### KELECHI Garcia ([id number]) [facility] ([facility]) [address] [place] [address] Glucose [Mass/Vol] 87 mg/dL Normal 74-99 [facility] Comment on above: Performed By: #### 1 9123-9 #### KELECHI Garcia ([id number]) [facility] ([facility]) [address] [place] [address] Potassium [Moles/Vol] 4.3 mmol/L Normal 3.5-5.3 [facility] Comment on above: Performed By: #### 1 9123-9 #### KELECHI VELÁZQUEZ L ([id number]) [facility] ([facility]) [address] [place] Sodium [Moles/Vol] 139 mmol/L Normal 136-145 [facility] Comment on above: Performed By: #### 1 9123-9 #### KELECHI VELÁZQUEZ L ([id number]) [facility] ([facility]) [address] [place] [address] Urea nitrogen [Mass/Vol] 28 mg/dL High 6-23 [facility] Comment on above: Performed By: #### 1 9123-9 #### KELECHI VELÁZQUEZ L ([id number]) [facility] ([facility]) [address] [place] [address] CBC W Auto Differential pane l (Bld)on 09-03-2024 Basophils (Bld) [#/Vol] 0.09 10*3/uL [facility] Basophils/100 WBC (Bld) 0.9 % 0.0 - 2.0 % [facility] Eosinophils (Bld) [#/Vol] 0.53 10*3/uL High [facility] Eosinophils/100 WBC (Bld) 5.5 % 0.0 - 6.0 % [facility] Erythrocyte distribution width (RBC) [Ratio] 15.2 % High 11.5 - 14.5 % [facility] Hematocrit (Bld) [Volume fraction] 26 % Low 36.0 - 46.0 % [facility] Hemoglobin (Bld) [Mass/Vol] 8 g/dL Low 12.0 - 16.0 g/dL [facility] Immature granulocytes (Bld) [#/Vol] 0.05 10*3/uL [facility] Immature granulocytes/100 WBC (Bld) 0.5 % 0.0 - 0.9 % [facility] Comment on above: Immature Granulocyte Count (IG) includes promyelocytes, myelocytes and metamyelocytes but does not include bands. Percent differential counts (%) should be interpreted in the context of the absolute cell counts (cells/UL). Interpretation and review of laboratory results Abnormal [facility] Lymphocytes (Bld) [#/Vol] 1.69 10*3/uL [facility] Lymphocytes/100 WBC (Bld) 17.5 % 13.0 - 44.0 % [facility] MCH (RBC) [Entitic mass] 30.1 pg 26.0 - 34.0 pg [facility] MCHC (RBC) [Mass/Vol] 30.8 g/dL Low 32.0 - 36.0 g/dL [facility] MCV (RBC) [Entitic vol] 98 fL 80 - 100 fL [facility] Monocytes (Bld) [#/Vol] 0.89 10*3/uL High [facility] Monocytes/100 WBC (Bld) 9.2 % 2.0 - 10.0 % [facility] Neutrophils (Bld) [#/Vol] 6.38 10*3/uL High [facility] Comment on above: Percent differential counts (%) should be interpreted in the context of the absolute cell counts (cells/uL). Neutrophils/100 WBC (Bld) 66.4 % 40.0 - 80.0 % [facility] Nucleated RBC/100 WBC (Bld) [Ratio] 0 % [facility] Platelets (Bld) [#/Vol] 429 10*3/uL [facility] RBC (Bld) [#/Vol] 2.66 10*6/uL Low [facility] WBC (Bld) [#/Vol] 9.6 10*3/uL [facility] Basophils (Bld) [#/Vol] 0.09 x10*3/uL Normal 0.00-0.10 [facility] Comment on above: Performed By: #### 1 9123-9 #### KELECHI Garcia ([id number]) [facility] ([facility]) [id number] [place] [address] 64856 Basophils/100 WBC (Bld) 0.9 % Normal 0.0-2.0 [facility] Comment on above: Performed By: #### 1 9123-9 #### KELECHI Garcia ([id number]) [facility] ([facility]) [id number] [place] [address] 28576 Eosinophils (Bld) [#/Vol] 0.53 x10*3/uL High 0.00-0.40 [facility] Comment on above: Performed By: #### 1 9123-9 #### KELECHI Garcia ([id number]) [facility] ([facility]) [id number] [place] [address] 68662 Eosinophils/100 WBC (Bld) 5.5 % Normal 0.0-6.0 [facility] Comment on above: Performed By: #### 1 9123-9 #### KELECHI Garcia ([id number]) [facility] ([facility]) [address] [place] [address] 99378 Erythrocyte distribution width (RBC) [Ratio] 15.2 % High 11.5-14.5 [facility] Comment on above: Performed By: #### 1 9123-9 #### KELECHI Garcia ([id number]) [facility] ([facility]) [address] [place] [address] 19025 Hematocrit (Bld) [Volume fraction] 26.0 % Low 36.0-46.0 [facility] Comment on above: Performed By: #### 1 9123-9 #### KELECHI Garcia ([id number]) [facility] ([facility]) [address] [place] [address] 59657 Hemoglobin (Bld) [Mass/Vol] 8.0 g/dL Low 12.0-16.0 [facility] Comment on above: Performed By: #### 1 9123-9 #### KELECHI Garcia ([id number]) [facility] ([facility]) [id number] [place] [address] 70485 Immature granulocytes (Bld) [#/Vol] 0.05 x10*3/uL Normal 0.00-0.50 [facility] Comment on above: Performed By: #### 1 9123-9 #### KELECHI Garcia ([id number]) [facility] ([facility]) [id number] [place] [address] 59210 Immature granulocytes/100 WBC (Bld) 0.5 % Normal 0.0-0.9 [facility] Comment on above: Result Comment: Jannie ture Granulocyte Count (IG) includes promyelocytes, myelocytes and metamyelocytes but does not include bands. Percent differential counts (%) should be interpreted in the context of the absolute cell counts (cells/UL). Performed By: #### 1 9123-9 #### KELECHI Garcia ([id number]) [facility] ([facility]) [id number] [place] [address] 48829 Lymphocytes (Bld) [#/Vol] 1.69 x10*3/uL Normal 0.80-3.00 [facility] Comment on above: Performed By: #### 1 9123-9 #### KELECHI Garcia ([id number]) [facility] ([facility]) [address] [place] [address] 20147 Lymphocytes/100 WBC (Bld) 17.5 % Normal 13.0-44.0 [facility] Comment on above: Performed By: #### 1 9123-9 #### KELECHI Garcia ([id number]) [facility] ([facility]) [address] [place] [address] MCH (RBC) [Entitic mass] 30.1 pg Normal 26.0-34.0 [facility] Comment on above: Performed By: #### 1 9123-9 #### KELECHI Garcia ([id number]) [facility] ([facility]) [address] [place] [address] MCHC (RBC) [Mass/Vol] 30.8 g/dL Low 32.0-36.0 [facility] Comment on above: Performed By: #### 1 9123-9 #### KELECHI Garcia ([id number]) [facility] ([facility]) [address] [place] [address] 81883 MCV (RBC) [Entitic vol] 98 fL Normal 80-100 [facility] Comment on above: Performed By: #### 1 9123-9 #### KELECHI Garcia ([id number]) [facility] ([facility]) [address] [place] [address] Monocytes (Bld) [#/Vol] 0.89 x10*3/uL High 0.05-0.80 [facility] Comment on above: Performed By: #### 1 9123-9 #### KELECHI Garcia ([id number]) [facility] ([facility]) [address] [place] [address] Monocytes/100 WBC (Bld) 9.2 % Normal 2.0-10.0 [facility] Comment on above: Performed By: #### 1 9123-9 #### KELECHI Garcia ([id number]) [facility] ([facility]) [id number] [place] [address] 01739 Neutrophils (Bld) [#/Vol] 6.38 x10*3/uL High 1.60-5.50 [facility] Comment on above: Result Comment: Perc ent differential counts (%) should be interpreted in the context of the absolute cell counts (cells/uL). Performed By: #### 1 9123-9 #### KELECHI Garcia ([id number]) [facility] ([facility]) [address] [place] [address] Neutrophils/100 WBC (Bld) 66.4 % Normal 40.0-80.0 [facility] Comment on above: Performed By: #### 1 9123-9 #### KELECHI Garcia ([id number]) [facility] ([facility]) [address] [place] [address] 60744 Nucleated RBC/100 WBC (Bld) [Ratio] 0.0 /100 WBCs Normal 0.0-0.0 [facility] Comment on above: Performed By: #### 1 9123-9 #### KELECHI Garcia ([id number]) [facility] ([facility]) [address] [place] [address] 15006 Platelets (Bld) [#/Vol] 429 x10*3/uL Normal 150-450 [facility] Comment on above: Performed By: #### 1 9123-9 #### KELECHI VELÁZQUEZ L ([id number]) [facility] ([facility]) [address] [place] [address] RBC (Bld) [#/Vol] 2.66 x10*6/uL Low 4.00-5.20 [facility] Comment on above: Performed By: #### 1 9123-9 #### KELECHI VELEZMOTZER L ([id number]) [facility] ([facility]) [address] [place] [address] WBC (Bld) [#/Vol] 9.6 x10*3/uL Normal 4.4-11.[address] [facility] Comment on above: Performed By: #### 1 9123-9 #### KELECHI WEBSTERER L ([id number]) [facility] ([facility]) [address] [place] [address] Basic metabolic 2000 panelon 09-02-2024 Anion gap [Moles/Vol] 17 mmol/L 10 - 2 0 mmol/L [facility] Calcium [Mass/Vol] 7.3 mg/dL Low 8.6 - 10. 6 mg/dL [facility] Chloride [Moles/Vol] 98 mmol/L 98 - 10 7 mmol/L [facility] CO2 [Moles/Vol] 29 mmol/L 21 - 32 mmol/L [facility] Creatinine [Mass/Vol] 6.49 mg/dL High 0.50 - 1.05 mg/dL [facility] GFR/1.73 sq M.predicted among non-blacks MDRD (S/P/Bld) [Vol rate/Area] 6 mL/min/{1.73_m2} Low - PINF [facility] Comment on above: Calculations of katy mated GFR are performed using the 2020 CKD-EPI Study Refit equation without the race variable for the IDMS-Traceable creatinine methods. https://jasn.asnjournals.org/content/early/ASN.2020 948864 Glucose [Mass/Vol] 88 mg/dL 74 - 99 mg/dL [facility] Interpretation and review of laboratory results Abnormal [facility] Potassium [Moles/Vol] 4.4 mmol/L 3.5 - 5.3 mmol/L [facility] Sodium [Moles/Vol] 140 mmol/L 136 - 145 mmol/L [facility] Urea nitrogen [Mass/Vol] 38 mg/dL High 6 - 23 mg/dL [facility] Anion gap [Moles/Vol] 17 mmol/L Normal 10-20 [facility] Comment on above: Performed By: #### 1 9123-9 #### KELECHI Garcia ([id number]) [facility] ([facility]) [id number] [place] [address] 58524 Calcium [Mass/Vol] 7.3 mg/dL Low 8.6-10.6 [facility] Comment on above: Performed By: #### 1 9123-9 #### KELECHI Garcia ([id number]) [facility] ([facility]) [id number] [place] [address] 93339 Chloride [Moles/Vol] 98 mmol/L Normal 98-107 [facility] Comment on above: Performed By: #### 1 9123-9 #### KELECHI Garcia ([id number]) [facility] ([facility]) [address] [place] [address] CO2 [Moles/Vol] 29 mmol/L Normal 21-32 [facility] Comment on above: Performed By: #### 1 9123-9 #### KELECHI Garcia ([id number]) [facility] ([facility]) [address] [place] [address] 60146 Creatinine [Mass/Vol] 6.49 mg/dL High 0.50-1.05 [facility] Comment on above: Performed By: #### 1 9123-9 #### KELECHI VELÁZQUEZ L ([id number]) [facility] ([facility]) [address] [place] [address] 41299 Glomerular filtration rate/1.73 sq M.predicted 6 mL/min/1.73m*2 Low >60 [facility] Comment on above: Result Comment: Calc ulations of estimated GFR are performed using the 2020 CKD-EPI Study Refit equation without the race variable for the IDMS-Traceable creatinine methods. https://jasn.asnjournals.org/content/early/ASN.2020 402124 Performed By: #### 1 9123-9 #### KELECHI Garcia ([id number]) [facility] ([facility]) [id number] [place] [address] 35446 Glucose [Mass/Vol] 88 mg/dL Normal 74-99 [facility] Comment on above: Performed By: #### 1 9123-9 #### KELECHI VELÁZQUEZ L ([id number]) [facility] ([facility]) [address] [place] [address] 48333 Potassium [Moles/Vol] 4.4 mmol/L Normal 3.5-5.3 [facility] Comment on above: Performed By: #### 1 9123-9 #### KELECHI VELÁZQUEZ L ([id number]) [facility] ([facility]) [address] [place] [address] 13285 Sodium [Moles/Vol] 140 mmol/L Normal 136-145 [facility] Comment on above: Performed By: #### 1 9123-9 #### KELECHI VELÁZQUEZ L ([id number]) [facility] ([facility]) [address] [place] [address] 27240 Urea nitrogen [Mass/Vol] 38 mg/dL [facility] 6-23 [facility] Comment on above: Performed By: #### 1 9123-9 #### KELECHI VELÁZQUEZ L ([id number]) [facility] ([facility]) [address] [place] [address] 33941 CBC W Auto Differential pane l (Bld)on 09-02-2024 Basophils (Bld) [#/Vol] 0.11 10*3/uL [facility] Basophils/100 WBC (Bld) 1.2 % 0.0 - 2.0 % [facility] Eosinophils (Bld) [#/Vol] 0.4 10*3/uL [facility] Eosinophils/100 WBC (Bld) 4.3 % 0.0 - 6.0 % [facility] Erythrocyte distribution width (RBC) [Ratio] 15.5 % High 11.5 - 14.5 % [facility] Hematocrit (Bld) [Volume fraction] 28.8 % Low 36.0 - 46.0 % [facility] Hemoglobin (Bld) [Mass/Vol] 8.8 g/dL Low 12.0 - 16.0 g/dL [facility] Immature granulocytes (Bld) [#/Vol] 0.06 10*3/uL [facility] Immature granulocytes/100 WBC (Bld) 0.6 % 0.0 - 0.9 % [facility] Comment on above: Immature Granulocyte Count (IG) includes promyelocytes, myelocytes and metamyelocytes but does not include bands. Percent differential counts (%) should be interpreted in the context of the absolute cell counts (cells/UL). Interpretation and review of laboratory results Abnormal [facility] Lymphocytes (Bld) [#/Vol] 1.07 10*3/uL [facility] Lymphocytes/100 WBC (Bld) 11.5 % 13.0 - 44.0 % [facility] MCH (RBC) [Entitic mass] 31 pg 26.0 - 34.0 pg [facility] MCHC (RBC) [Mass/Vol] 30.6 g/dL Low 32.0 - 36.0 g/dL [facility] MCV (RBC) [Entitic vol] 101 fL High 80 - 100 fL [facility] Monocytes (Bld) [#/Vol] 0.79 10*3/uL [facility] Monocytes/100 WBC (Bld) 8.5 % 2.0 - 10.0 % [facility] Neutrophils (Bld) [#/Vol] 6.86 10*3/uL High [facility] Comment on above: Percent differential counts (%) should be interpreted in the context of the absolute cell counts (cells/uL). Neutrophils/100 WBC (Bld) 73.9 % 40.0 - 80.0 % [facility] Nucleated RBC/100 WBC (Bld) [Ratio] 0 % [facility] Platelets (Bld) [#/Vol] 430 10*3/uL [facility] RBC (Bld) [#/Vol] 2.84 10*6/uL Low [facility] WBC (Bld) [#/Vol] 9.3 10*3/uL [facility] Basophils (Bld) [#/Vol] 0.11 x10*3/uL High 0.00-0.10 [facility] Comment on above: Performed By: #### 1 9123-9 #### KELECHI Garcia ([id number]) [facility] ([facility]) [id number] [place] [address] 97054 Basophils/100 WBC (Bld) 1.2 % Normal 0.0-2.0 [facility] Comment on above: Performed By: #### 1 9123-9 #### KELECHI Garcia ([id number]) [facility] ([facility]) [address] [place] [address] 56143 Eosinophils (Bld) [#/Vol] 0.40 x10*3/uL Normal 0.00-0.40 [facility] Comment on above: Performed By: #### 1 9123-9 #### KELECHI Garcia ([id number]) [facility] ([facility]) [address] [place] [address] 46043 Eosinophils/100 WBC (Bld) 4.3 % Normal 0.0-6.0 [facility] Comment on above: Performed By: #### 1 9123-9 #### KELECHI Garcia ([id number]) [facility] ([facility]) [address] [place] [address] 82802 Erythrocyte distribution width (RBC) [Ratio] 15.5 % High 11.5-14.5 [facility] Comment on above: Performed By: #### 1 9123-9 #### KELECHI Garcia ([id number]) [facility] ([facility]) [address] [place] [address] 83104 Hematocrit (Bld) [Volume fraction] 28.8 % Low 36.0-46.0 [facility] Comment on above: Performed By: #### 1 9123-9 #### KELECHI Garcia ([id number]) [facility] ([facility]) [address] [place] [address] 96598 Hemoglobin (Bld) [Mass/Vol] 8.8 g/dL Low 12.0-16.0 [facility] Comment on above: Performed By: #### 1 9123-9 #### KELECHI Garcia ([id number]) [facility] ([facility]) [address] [place] [address] 96804 Immature granulocytes (Bld) [#/Vol] 0.06 x10*3/uL Normal 0.00-0.50 [facility] Comment on above: Performed By: #### 1 9123-9 #### KELECHI Garcia ([id number]) [facility] ([facility]) [address] [place] [address] 62817 Immature granulocytes/100 WBC (Bld) 0.6 % Normal 0.0-0.9 [facility] Comment on above: Result Comment: Jannie ture Granulocyte Count (IG) includes promyelocytes, myelocytes and metamyelocytes but does not include bands. Percent differential counts (%) should be interpreted in the context of the absolute cell counts (cells/UL). Performed By: #### 1 9123-9 #### KELECHI Garcia ([id number]) [facility] ([facility]) [address] [place] [address] 33932 Lymphocytes (Bld) [#/Vol] 1.07 x10*3/uL Normal 0.80-3.00 [facility] Comment on above: Performed By: #### 1 9123-9 #### KELECHI VELÁZQUEZ L ([id number]) [facility] ([facility]) [address] [place] [address] 07671 Lymphocytes/100 WBC (Bld) 11.5 % Normal 13.0-44.0 [facility] Comment on above: Performed By: #### 1 9123-9 #### KELECHI Garcia ([id number]) [facility] ([facility]) [id number] [place] [address] 55066 MCH (RBC) [Entitic mass] 31.0 pg Normal 26.0-34.0 [facility] Comment on above: Performed By: #### 1 9123-9 #### KELECHI Garcia ([id number]) [facility] ([facility]) [address] [place] [address] MCHC (RBC) [Mass/Vol] 30.6 g/dL Low 32.0-36.0 [facility] Comment on above: Performed By: #### 1 9123-9 #### KELECHI Garcia ([id number]) [facility] ([facility]) [address] [place] [address] MCV (RBC) [Entitic vol] 101 fL High 80-100 [facility] Comment on above: Performed By: #### 1 9123-9 #### KELECHI Garcia ([id number]) [facility] ([facility]) [address] [place] [address] Monocytes (Bld) [#/Vol] 0.79 x10*3/uL Normal 0.05-0.80 [facility] Comment on above: Performed By: #### 1 9123-9 #### KELECHI Garcia ([id number]) [facility] ([facility]) [address] [place] [address] Monocytes/100 WBC (Bld) 8.5 % Normal 2.0-10.0 [facility] Comment on above: Performed By: #### 1 9123-9 #### KELECHI Garcia ([id number]) [facility] ([facility]) [address] [place] [address] Neutrophils (Bld) [#/Vol] 6.86 x10*3/uL High 1.60-5.50 [facility] Comment on above: Result Comment: Perc ent differential counts (%) should be interpreted in the context of the absolute cell counts (cells/uL). Performed By: #### 1 9123-9 #### KELECHI Garcia ([id number]) [facility] ([facility]) [address] [place] [address] 17081 Neutrophils/100 WBC (Bld) 73.9 % Normal 40.0-80.0 [facility] Comment on above: Performed By: #### 1 9123-9 #### KELECHI Garcia ([id number]) [facility] ([facility]) [address] [place] [address] 68189 Nucleated RBC/100 WBC (Bld) [Ratio] 0.0 /100 WBCs Normal 0.0-0.0 [facility] Comment on above: Performed By: #### 1 9123-9 #### KELECHI Garcia ([id number]) [facility] ([facility]) [address] [place] [address] 36654 Platelets (Bld) [#/Vol] 430 x10*3/uL Normal 150-450 [facility] Comment on above: Performed By: #### 1 9123-9 #### KELECHI Garcia ([id number]) [facility] ([facility]) [address] [place] [address] 45156 RBC (Bld) [#/Vol] 2.84 x10*6/uL Low 4.00-5.20 [facility] Comment on above: Performed By: #### 1 9123-9 #### KELECHI Garcia ([id number]) [facility] ([facility]) [address] [place] [address] 66283 WBC (Bld) [#/Vol] 9.3 x10*3/uL Normal 4.4-11.[address] [facility] Comment on above: Performed By: #### 1 9123-9 #### KELECHI Garcia ([id number]) [facility] ([facility]) [address] [place] [address] 52835 Basophils (Bld) [#/Vol] 0.13 10*3/uL [facility] Basophils/100 WBC (Bld) 1.5 % 0.0 - 2.0 % [facility] Eosinophils (Bld) [#/Vol] 0.42 10*3/uL [facility] Eosinophils/100 WBC (Bld) 4.8 % 0.0 - 6.0 % [facility] Erythrocyte distribution width (RBC) [Ratio] 15.3 % High 11.5 - 14.5 % [facility] Hematocrit (Bld) [Volume fraction] 27.3 % Low 36.0 - 46.0 % [facility] Hemoglobin (Bld) [Mass/Vol] 8.5 g/dL Low 12.0 - 16.0 g/dL [facility] Immature granulocytes (Bld) [#/Vol] 0.04 10*3/uL [facility] Immature granulocytes/100 WBC (Bld) 0.5 % 0.0 - 0.9 % [facility] Comment on above: Immature Granulocyte Count (IG) includes promyelocytes, myelocytes and metamyelocytes but does not include bands. Percent differential counts (%) should be interpreted in the context of the absolute cell counts (cells/UL). Interpretation and review of laboratory results Abnormal [facility] Lymphocytes (Bld) [#/Vol] 1.29 10*3/uL [facility] Lymphocytes/100 WBC (Bld) 14.6 % 13.0 - 44.0 % [facility] MCH (RBC) [Entitic mass] 30.6 pg 26.0 - 34.0 pg [facility] MCHC (RBC) [Mass/Vol] 31.1 g/dL Low 32.0 - 36.0 g/dL [facility] MCV (RBC) [Entitic vol] 98 fL 80 - 100 fL [facility] Monocytes (Bld) [#/Vol] 0.77 10*3/uL [facility] Monocytes/100 WBC (Bld) 8.7 % 2.0 - 10.0 % [facility] Neutrophils (Bld) [#/Vol] 6.16 10*3/uL High [facility] Comment on above: Percent differential counts (%) should be interpreted in the context of the absolute cell counts (cells/uL). Neutrophils/100 WBC (Bld) 69.9 % 40.0 - 80.0 % [facility] Nucleated RBC/100 WBC (Bld) [Ratio] 0 % [facility] Platelets (Bld) [#/Vol] 399 10*3/uL [facility] RBC (Bld) [#/Vol] 2.78 10*6/uL Low [facility] WBC (Bld) [#/Vol] 8.8 10*3/uL [facility] Basophils (Bld) [#/Vol] 0.13 x10*3/uL High 0.00-0.10 [facility] Comment on above: Performed By: #### 1 9123-9 #### KELECHI Garcia ([id number]) [facility] ([facility]) [address] [place] [address] 81542 Basophils/100 WBC (Bld) 1.5 % Normal 0.0-2.0 [facility] Comment on above: Performed By: #### 1 9123-9 #### KELECHI Garcia ([id number]) [facility] ([facility]) [address] [place] [address] 45435 Eosinophils (Bld) [#/Vol] 0.42 x10*3/uL High 0.00-0.40 [facility] Comment on above: Performed By: #### 1 9123-9 #### KELECHI Garcia ([id number]) [facility] ([facility]) [address] [place] [address] 71355 Eosinophils/100 WBC (Bld) 4.8 % Normal 0.0-6.0 [facility] Comment on above: Performed By: #### 1 9123-9 #### KELECHI Garcia ([id number]) [facility] ([facility]) [address] [place] [address] 18228 Erythrocyte distribution width (RBC) [Ratio] 15.3 % High 11.5-14.5 [facility] Comment on above: Performed By: #### 1 9123-9 #### KELECHI Garcia ([id number]) [facility] ([facility]) [address] [place] [address] 48537 Hematocrit (Bld) [Volume fraction] 27.3 % Low 36.0-46.0 [facility] Comment on above: Performed By: #### 1 9123-9 #### KELECHI Garcia ([id number]) [facility] ([facility]) [address] [place] [address] 86264 Hemoglobin (Bld) [Mass/Vol] 8.5 g/dL Low 12.0-16.0 [facility] Comment on above: Performed By: #### 1 9123-9 #### KELECHI VELEZMOTZER L ([id number]) [facility] ([facility]) [address] [place] [address] 66989 Immature granulocytes (Bld) [#/Vol] 0.04 x10*3/uL Normal 0.00-0.50 [facility] Comment on above: Performed By: #### 1 9123-9 #### KELECHI Garcia ([id number]) [facility] [facility]) [address] [place] [address]49 Immature granulocytes/100 WBC (Bld) 0.5 % Normal 0.0-0.9 [facility] Comment on above: Result Comment: Jannie ture Granulocyte Count (IG) includes promyelocytes, myelocytes and metamyelocytes but does not include bands. Percent differential counts (%) should be interpreted in the context of the absolute cell counts (cells/UL). Performed By: #### 1 9123-9 #### KELECHI Garcia ([id number]) [facility] ([facility]) [address] [place] [address] 51075 Lymphocytes (Bld) [#/Vol] 1.29 x10*3/uL Normal 0.80-3.00 [facility] Comment on above: Performed By: #### 1 9123-9 #### KELECHI VELÁZQUEZ L ([id number]) [facility] ([facility]) [address] [place] [address] 74024 Lymphocytes/100 WBC (Bld) 14.6 % Normal 13.0-44.0 [facility] Comment on above: Performed By: #### 1 9123-9 #### KELECHI VELÁZQUEZ L ([id number]) [facility] ([facility]) [address] [place] [address], [place] [address] MCH (RBC) [Entitic mass] 30.6 pg Normal 26.0-34.0 [facility] Comment on above: Performed By: #### 1 9123-9 #### KELECHI Garcia ([id number]) [facility] ([facility]) [address] [place] [address] MCHC (RBC) [Mass/Vol] 31.1 g/dL Low 32.0-36.0 [facility] Comment on above: Performed By: #### 1 9123-9 #### KELECHI Garcia ([id number]) [facility] ([facility]) [address] [place] [address] MCV (RBC) [Entitic vol] 98 fL Normal 80-100 [facility] Comment on above: Performed By: #### 1 9123-9 #### KELECHI Garcia ([id number]) [facility] ([facility]) [address] [place] [address] Monocytes (Bld) [#/Vol] 0.77 x10*3/uL Normal 0.05-0.80 [facility] Comment on above: Performed By: #### 1 9123-9 #### KELECHI Garcia ([id number]) [facility] ([facility]) [address] [place] [address] Monocytes/100 WBC (Bld) 8.7 % Normal 2.0-10.0 [facility] Comment on above: Performed By: #### 1 9123-9 #### KELECHI Garcia ([id number]) [facility] ([facility]) [address] [place] [address] Neutrophils (Bld) [#/Vol] 6.16 x10*3/uL High 1.60-5.50 [facility] Comment on above: Result Comment: Perc ent differential counts (%) should be interpreted in the context of the absolute cell counts (cells/uL). Performed By: #### 1 9123-9 #### KELECHI Garcia ([id number]) [facility] ([facility]) [id number] [place] [address] 77668 Neutrophils/100 WBC (Bld) 69.9 % Normal 40.0-80.0 [facility] Comment on above: Performed By: #### 1 9123-9 #### KELECHI Garcia ([id number]) [facility] ([facility]) [address] [place] [address] 35666 Nucleated RBC/100 WBC (Bld) [Ratio] 0.0 /100 WBCs Normal 0.0-0.0 [facility] Comment on above: Performed By: #### 1 9123-9 #### KELECHI Garcia ([id number]) [facility] ([facility]) [address] [place] [address] 65523 Platelets (Bld) [#/Vol] 399 x10*3/uL Normal 150-450 [facility] Comment on above: Performed By: #### 1 9123-9 #### KELECHI Garcia ([id number]) [facility] ([facility]) [address] [place] [address] 55992 RBC (Bld) [#/Vol] 2.78 x10*6/uL Low 4.00-5.20 [facility] Comment on above: Performed By: #### 1 9123-9 #### KELECHI Garcia ([id number]) [facility] ([facility]) [address] [place] [address] 02943 WBC (Bld) [#/Vol] 8.8 x10*3/uL Normal 4.4-11.[address] [facility] Comment on above: Performed By: #### 1 9123-9 #### KELECHI Garcia ([id number]) [facility] ([facility]) [address] [place] [address] 71513 Basophils (Bld) [#/Vol] 0.11 10*3/uL [facility] Basophils/100 WBC (Bld) 1.1 % 0.0 - 2.0 % [facility] Eosinophils (Bld) [#/Vol] 0.49 10*3/uL [facility] Eosinophils/100 WBC (Bld) 5 % 0.0 - 6.0 % [facility] Erythrocyte distribution width (RBC) [Ratio] 15.6 % High 11.5 - 14.5 % [facility] Hematocrit (Bld) [Volume fraction] 24 % Low 36.0 - 46.0 % [facility] Hemoglobin (Bld) [Mass/Vol] 7.7 g/dL Low 12.0 - 16.0 g/dL [facility] Immature granulocytes (Bld) [#/Vol] 0.04 10*3/uL [facility] Immature granulocytes/100 WBC (Bld) 0.4 % 0.0 - 0.9 % [facility] Comment on above: Immature Granulocyte Count (IG) includes promyelocytes, myelocytes and metamyelocytes but does not include bands. Percent differential counts (%) should be interpreted in the context of the absolute cell counts (cells/UL). Interpretation and review of laboratory results Abnormal [facility] Lymphocytes (Bld) [#/Vol] 1.7 10*3/uL [facility] Lymphocytes/100 WBC (Bld) 17.5 % 13.0 - 44.0 % [facility] MCH (RBC) [Entitic mass] 30.6 pg 26.0 - 34.0 pg [facility] MCHC (RBC) [Mass/Vol] 32.1 g/dL 32.0 - 36.0 g/dL [facility] MCV (RBC) [Entitic vol] 95 fL 80 - 100 fL [facility] Monocytes (Bld) [#/Vol] 0.79 10*3/uL [facility] Monocytes/100 WBC (Bld) 8.1 % 2.0 - 10.0 % [facility] Neutrophils (Bld) [#/Vol] 6.58 10*3/uL High [facility] Comment on above: Percent differential counts (%) should be interpreted in the context of the absolute cell counts (cells/uL). Neutrophils/100 WBC (Bld) 67.9 % 40.0 - 80.0 % [facility] Nucleated RBC/100 WBC (Bld) [Ratio] 0 % [facility] Platelets (Bld) [#/Vol] 392 10*3/uL [facility] RBC (Bld) [#/Vol] 2.52 10*6/uL Low [facility] WBC (Bld) [#/Vol] 9.7 10*3/uL [facility] Basophils (Bld) [#/Vol] 0.11 x10*3/uL High 0.00-0.10 [facility] Comment on above: Performed By: #### 1 9123-9 #### KELECHI Garcia ([id number]) [facility] ([facility]) [address] [place] [address] 26111 Basophils/100 WBC (Bld) 1.1 % Normal 0.0-2.0 [facility] Comment on above: Performed By: #### 1 9123-9 #### KELECHI Garcia ([id number]) [facility] ([facility]) [address] [place] [address] 13171 Eosinophils (Bld) [#/Vol] 0.49 x10*3/uL High 0.00-0.40 [facility] Comment on above: Performed By: #### 1 9123-9 #### KELECHI Garcia ([id number]) [facility] ([facility]) [address] [place] [address] 12824 Eosinophils/100 WBC (Bld) 5.0 % Normal 0.0-6.0 [facility] Comment on above: Performed By: #### 1 9123-9 #### KELECHI Garcia ([id number]) [facility] ([facility]) [address] [place] [address] 01123 Erythrocyte distribution width (RBC) [Ratio] 15.6 % High 11.5-14.5 [facility] Comment on above: Performed By: #### 1 9123-9 #### KELECHI Garcia ([id number]) [facility] ([facility]) [address] [place] [address] 20677 Hematocrit (Bld) [Volume fraction] 24.0 % Low 36.0-46.0 [facility] Comment on above: Performed By: #### 1 9123-9 #### KELECHI Garcia ([id number]) [facility] ([facility]) [address] [place] [address] 07901 Hemoglobin (Bld) [Mass/Vol] 7.7 g/dL Low 12.0-16.0 [facility] Comment on above: Performed By: #### 1 9123-9 #### KELECHI VELEZMOTZER L ([id number]) [facility] ([facility]) [address] [place] [address] 59911 Immature granulocytes (Bld) [#/Vol] 0.04 x10*3/uL Normal 0.00-0.50 [facility] Comment on above: Performed By: #### 1 9123-9 #### KELECHI Garcia ([id number]) [facility] ([facility]) [address] [place] [address] 90155 Immature granulocytes/100 WBC (Bld) 0.4 % Normal 0.0-0.9 [facility] Comment on above: Result Comment: Jannie ture Granulocyte Count (IG) includes promyelocytes, myelocytes and metamyelocytes but does not include bands. Percent differential counts (%) should be interpreted in the context of the absolute cell counts (cells/UL). Performed By: #### 1 9123-9 #### KELECHI Garcia ([id number]) [facility] ([facility]) [address] [place] [address] 60964 Lymphocytes (Bld) [#/Vol] 1.70 x10*3/uL Normal 0.80-3.00 [facility] Comment on above: Performed By: #### 1 9123-9 #### KELECHI VELÁZQUEZ L ([id number]) [facility] ([facility]) [address] [place] [address] 56273 Lymphocytes/100 WBC (Bld) 17.5 % Normal 13.0-44.0 [facility] Comment on above: Performed By: #### 1 9123-9 #### KELECHI VELÁZQUEZ L ([id number]) [facility] ([facility]) [address] [place] [address], [place] [address] MCH (RBC) [Entitic mass] 30.6 pg Normal 26.0-34.0 [facility] Comment on above: Performed By: #### 1 9123-9 #### KELECHI Garcia ([id number]) [facility] ([facility]) [address] [place] [address] MCHC (RBC) [Mass/Vol] 32.1 g/dL Normal 32.0-36.0 [facility] Comment on above: Performed By: #### 1 9123-9 #### KELECHI Garcia ([id number]) [facility] ([facility]) [address] [place] [address] MCV (RBC) [Entitic vol] 95 fL Normal 80-100 [facility] Comment on above: Performed By: #### 1 9123-9 #### KELECHI Garcia ([id number]) [facility] ([facility]) [address] [place] [address] Monocytes (Bld) [#/Vol] 0.79 x10*3/uL Normal 0.05-0.80 [facility] Comment on above: Performed By: #### 1 9123-9 #### KELECHI Garcia ([id number]) [facility] ([facility]) [address] [place] [address] Monocytes/100 WBC (Bld) 8.1 % Normal 2.0-10.0 [facility] Comment on above: Performed By: #### 1 9123-9 #### KELECHI Garcia ([id number]) [facility] ([facility]) [address] [place] [address] Neutrophils (Bld) [#/Vol] 6.58 x10*3/uL High 1.60-5.50 [facility] Comment on above: Result Comment: Perc ent differential counts (%) should be interpreted in the context of the absolute cell counts (cells/uL). Performed By: #### 1 9123-9 #### KELECHI Garcia ([id number]) [facility] ([facility]) [address] [place] [address] 74446 Neutrophils/100 WBC (Bld) 67.9 % Normal 40.0-80.0 [facility] Comment on above: Performed By: #### 1 9123-9 #### KELECHI Garcia ([id number]) [facility] ([facility]) [address] [place] [address] 27446 Nucleated RBC/100 WBC (Bld) [Ratio] 0.0 /100 WBCs Normal 0.0-0.0 [facility] Comment on above: Performed By: #### 1 9123-9 #### KELECHI Garcia ([id number]) [facility] ([facility]) [address] [place] [address] 35970 Platelets (Bld) [#/Vol] 392 x10*3/uL Normal 150-450 [facility] Comment on above: Performed By: #### 1 9123-9 #### KELECHI Garcia ([id number]) [facility] ([facility]) [address] [place] [address] 85679 RBC (Bld) [#/Vol] 2.52 x10*6/uL Low 4.00-5.20 [facility] Comment on above: Performed By: #### 1 9123-9 #### KELECHI Garcia ([id number]) [facility] ([facility]) [address] [place] [address] 74644 WBC (Bld) [#/Vol] 9.7 x10*3/uL Normal 4.4-11.[address] [facility] Comment on above: Performed By: #### 1 9123-9 #### KELECHI Garcia ([id number]) [facility] ([facility]) [address] [place] [address] 40892 Prepare RBC: 1 Unitson 09-02 Blood Expiration Date 09/08/2024 11:59:00 PM EDT [facility] Dispense Status PT [facility] PRODUCT BLOOD TYPE 5100 [facility] PRODUCT CODE [id number] [facility] Unit ABO O [facility] Unit Number [id number] [facility] Unit RH Positive [facility] UNIT VOLUME 350 [facility] XM INTEP COMP [facility] Basic metabolic 2000 panelon 09-01-2024 Anion gap [Moles/Vol] 15 mmol/L 10 - 2 0 mmol/L [facility] Calcium [Mass/Vol] 7.7 mg/dL Low 8.6 - 10. 6 mg/dL [facility] Chloride [Moles/Vol] 97 mmol/L Low 98 - 10 7 mmol/L [facility] CO2 [Moles/Vol] 33 mmol/L High 21 - 32 mmol/L [facility] Creatinine [Mass/Vol] 4.41 mg/dL High 0.50 - 1.05 mg/dL [facility] GFR/1.73 sq M.predicted among non-blacks MDRD (S/P/Bld) [Vol rate/Area] 10 mL/min/{1.73_m2} Low - PINF [facility] Comment on above: Calculations of katy mated GFR are performed using the 2020 CKD-EPI Study Refit equation without the race variable for the IDMS-Traceable creatinine methods. https://jasn.asnjournals.org/content/early//ASN.2020 452357 Glucose [Mass/Vol] 92 mg/dL 74 - 99 mg/dL [facility] Potassium [Moles/Vol] 3.7 mmol/L 3.5 - 5.3 mmol/L [facility] Sodium [Moles/Vol] 141 mmol/L 136 - 145 mmol/L [facility] Urea nitrogen [Mass/Vol] 23 mg/dL 6 - 23 mg/dL [facility] Anion gap [Moles/Vol] 15 mmol/L Normal 10-20 [facility] Comment on above: Performed By: #### 5 7021-8 #### KELECHI Garcia ([id number]) [facility]) [address] [place] [address] Calcium [Mass/Vol] 7.7 mg/dL Low 8.6-10.6 [facility] Comment on above: Performed By: #### 5 7021-8 #### KELECHI Garcia ([id number]) [facility] ([facility]) [address] [place] [address] Chloride [Moles/Vol] 97 mmol/L Low 98-107 [facility] Comment on above: Performed By: #### 5 7021-8 #### KELECHI VELÁZQUEZ L ([id number]) [facility] ([facility]) [address] [place] [address] CO2 [Moles/Vol] 33 mmol/L High 21-32 [facility] Comment on above: Performed By: #### 5 7021-8 #### KELECHI Garcia ([id number]) [facility] ([facility]) [address] [place] [address]3664 Creatinine [Mass/Vol] 4.41 mg/dL High 0.50-1.05 [facility] Comment on above: Performed By: #### 5 7021-8 #### KELECHI Garcia ([id number]) [facility] ([facility]) [address] [place] [address] Glomerular filtration rate/1.73 sq M.predicted 10 mL/min/1.73m*2 Low >60 [facility] Comment on above: Result Comment: Calc ulations of estimated GFR are performed using the 2020 CKD-EPI Study Refit equation without the race variable for the IDMS-Traceable creatinine methods. https://jasn.asnjournals.org/content/early//ASN.2020 590164 Performed By: #### 5 7021-8 #### KELECHI Garcia ([id number]) [facility] ([facility]) [address] [place] [address] Glucose [Mass/Vol] 92 mg/dL Normal 74-99 [facility] Comment on above: Performed By: #### 5 7021-8 #### KELECHI Garcia ([id number]) [facility]) [address] [place] [address] Potassium [Moles/Vol] 3.7 mmol/L Normal 3.5-5.3 [facility] Comment on above: Performed By: #### 5 7021-8 #### KELECHI Garcia ([id number]) [facility] ([facility]) [address] [place] [address] 51245 Sodium [Moles/Vol] 141 mmol/L Normal 136-145 [facility] Comment on above: Performed By: #### 5 7021-8 #### KELECHI Garcia ([id number]) [facility] ([facility]) [address] [place] [address] 08200 Urea nitrogen [Mass/Vol] 23 mg/dL Normal 6-23 [facility] Comment on above: Performed By: #### 5 7021-8 #### KELECHI Garcia ([id number]) [facility]) [address] [place] [address] 58342 CBC W Auto Differential pane l (Bld)on 09-01-2024 Basophils (Bld) [#/Vol] 0.12 x10*3/uL High 0.00-0.10 [facility] Comment on above: Performed By: #### 5 7021-8 #### KELECHI Garcia ([id number]) [facility] ([facility]) [address] [place] [address] 09722 Basophils/100 WBC (Bld) 1.0 % Normal 0.0-2.0 [facility] Comment on above: Performed By: #### 5 7021-8 #### KELECHI Garcia ([id number]) [facility]) [address] [place] [address] 01971 Eosinophils (Bld) [#/Vol] 0.23 x10*3/uL Normal 0.00-0.40 [facility] Comment on above: Performed By: #### 5 7021-8 #### KELECHI Garcia ([id number]) [facility] ([facility]) [address] [place] [address] 10406 Eosinophils/100 WBC (Bld) 1.9 % Normal 0.0-6.0 [facility] Comment on above: Performed By: #### 5 7021-8 #### KELECHI Garcia ([id number]) [facility]) [address] [place] [address] 41145 Erythrocyte distribution width (RBC) [Ratio] 15.7 % High 11.5-14.5 [facility] Comment on above: Performed By: #### 5 7021-8 #### KELECHI Garcia ([id number]) [facility] ([facility]) [address] [place] [address] 76055 Hematocrit (Bld) [Volume fraction] 21.1 % Low 36.0-46.0 [facility] Comment on above: Performed By: #### 5 7021-8 #### KELECHI Garcia ([id number]) [facility] ([facility]) [address] [place] [address] 49479 Hemoglobin (Bld) [Mass/Vol] 6.8 g/dL Low 12.0-16.0 [facility] Comment on above: Performed By: #### 5 7021-8 #### KELECHI Garcia ([id number]) [facility] ([facility]) [address] [place] [address] 43180 Immature granulocytes (Bld) [#/Vol] 0.04 x10*3/uL Normal 0.00-0.50 [facility] Comment on above: Performed By: #### 5 7021-8 #### KELECHI Garcia ([id number]) [facility] ([facility]) [address] [place] [address] 29285 Immature granulocytes/100 WBC (Bld) 0.3 % Normal 0.0-0.9 [facility] Comment on above: Result Comment: Jannie ture Granulocyte Count (IG) includes promyelocytes, myelocytes and metamyelocytes but does not include bands. Percent differential counts (%) should be interpreted in the context of the absolute cell counts (cells/UL). Performed By: #### 5 7021-8 #### KELECHI Garcia ([id number]) [facility] ([facility]) [address] [place] [address] 98447 Lymphocytes (Bld) [#/Vol] 1.00 x10*3/uL Normal 0.80-3.00 [facility] Comment on above: Performed By: #### 5 7021-8 #### KELECHI Garcia ([id number]) [facility] ([facility]) [id number] [place] [address] 40654 Lymphocytes/100 WBC (Bld) 8.1 % Normal 13.0-44.0 [facility] Comment on above: Performed By: #### 5 7021-8 #### KELECHI Garcia ([id number]) [facility] ([facility]) [address] [place] [address] 15858 MCH (RBC) [Entitic mass] 30.4 pg Normal 26.0-34.0 [facility] Comment on above: Performed By: #### 5 7021-8 #### KELECHI Garcia ([id number]) [facility]) [address] [place] [address] 70167 MCHC (RBC) [Mass/Vol] 32.2 g/dL Normal 32.0-36.0 [facility] Comment on above: Performed By: #### 5 7021-8 #### KELECHI Garcia ([id number]) [facility]) [address] [place] [address] 92585 MCV (RBC) [Entitic vol] 94 fL Normal 80-100 [facility] Comment on above: Performed By: #### 5 7021-8 #### KELECHI Garcia ([id number]) [facility]) [address] [place] [address] 39138 Monocytes (Bld) [#/Vol] 1.23 x10*3/uL High 0.05-0.80 [facility] Comment on above: Performed By: #### 5 7021-8 #### KELECHI Garcia ([id number]) [facility]) [address] [place] [address] Monocytes/100 WBC (Bld) 10.0 % Normal 2.0-10.0 [facility] Comment on above: Performed By: #### 5 7021-8 #### KELECHI Garcia ([id number]) [facility]) [address] [place] [address] Neutrophils (Bld) [#/Vol] 9.70 x10*3/uL High 1.60-5.50 [facility] Comment on above: Result Comment: Perc ent differential counts (%) should be interpreted in the context of the absolute cell counts (cells/uL). Performed By: #### 5 7021-8 #### KELECHI Garcia ([id number]) [facility]) [address] [place] [address] Neutrophils/100 WBC (Bld) 78.7 % Normal 40.0-80.0 [facility] Comment on above: Performed By: #### 5 7021-8 #### KELECHI Garcia ([id number]) [facility]) [address] [place] [address] Nucleated RBC/100 WBC (Bld) [Ratio] 0.0 /100 WBCs Normal 0.0-0.0 [facility] Comment on above: Performed By: #### 5 7021-8 #### KELECHI Garcia ([id number]) [facility]) [address] [place] [address] Platelets (Bld) [#/Vol] 366 x10*3/uL Normal 150-450 [facility] Comment on above: Performed By: #### 5 7021-8 #### KELECHI Garcia ([id number]) [facility]) [address] [place] [address] RBC (Bld) [#/Vol] 2.24 x10*6/uL Low 4.00-5.20 [facility] Comment on above: Performed By: #### 5 7021-8 #### KELECHI Garcia ([id number]) [facility]) [address] [place] [address] WBC (Bld) [#/Vol] 12.3 x10*3/uL High 4.4-11.3 [facility] Comment on above: Performed By: #### 5 7021-8 #### KELECHI Garcia ([id number]) [facility]) [address] [place] [address] Basophils (Bld) [#/Vol] 0.09 10*3/uL [facility] Basophils/100 WBC (Bld) 0.8 % 0.0 - 2.0 % [facility] Eosinophils (Bld) [#/Vol] 0.38 10*3/uL [facility] Eosinophils/100 WBC (Bld) 3.4 % 0.0 - 6.0 % [facility] Erythrocyte distribution width (RBC) [Ratio] 16 % High 11.5 - 14.5 % [facility] Hematocrit (Bld) [Volume fraction] 23.5 % Low 36.0 - 46.0 % [facility] Hemoglobin (Bld) [Mass/Vol] 7.9 g/dL Low 12.0 - 16.0 g/dL [facility] Immature granulocytes (Bld) [#/Vol] 0.04 10*3/uL [facility] Immature granulocytes/100 WBC (Bld) 0.4 % 0.0 - 0.9 % [facility] Comment on above: Immature Granulocyte Count (IG) includes promyelocytes, myelocytes and metamyelocytes but does not include bands. Percent differential counts (%) should be interpreted in the context of the absolute cell counts (cells/UL). Interpretation and review of laboratory results Abnormal [facility] Lymphocytes (Bld) [#/Vol] 1.57 10*3/uL [facility] Lymphocytes/100 WBC (Bld) 14.1 % 13.0 - 44.0 % [facility] MCH (RBC) [Entitic mass] 31.9 pg 26.0 - 34.0 pg [facility] MCHC (RBC) [Mass/Vol] 33.6 g/dL 32.0 - 36.0 g/dL [facility] MCV (RBC) [Entitic vol] 95 fL 80 - 100 fL [facility] Monocytes (Bld) [#/Vol] 1.17 10*3/uL High [facility] Monocytes/100 WBC (Bld) 10.5 % 2.0 - 10.0 % [facility] Neutrophils (Bld) [#/Vol] 7.86 10*3/uL High [facility] Comment on above: Percent differential counts (%) should be interpreted in the context of the absolute cell counts (cells/uL). Neutrophils/100 WBC (Bld) 70.8 % 40.0 - 80.0 % [facility] Nucleated RBC/100 WBC (Bld) [Ratio] 0 % [facility] Platelets (Bld) [#/Vol] 369 10*3/uL [facility] RBC (Bld) [#/Vol] 2.48 10*6/uL [facility]ld[facility] [#/Vol] 11.1 10*3/uL [facility] Basophils (Bld) [#/Vol] 0.09 x10*3/uL Normal 0.00-0.10 [facility] Comment on above: Performed By: #### 1 9123-9 #### KELECHI Garcia ([id number]) [facility] ([facility]) [address] [place] [address] Basophils/100 WBC (Bld) 0.8 % Normal 0.0-2.0 U [facility] Comment on above: Performed By: #### 1 9123-9 #### KELECHI VELEZMOTZER L ([id number]) [facility] ([facility]) [address] [place] [address] Eosinophils (Bld) [#/Vol] 0.38 x10*3/uL Normal 0.00-0.40 [facility] Comment on above: Performed By: #### 1 9123-9 #### KELECHI VELÁZQUEZ L ([id number]) [facility] ([facility]) [address] [place] [address] Eosinophils/100 WBC (Bld) 3.4 % Normal 0.0-6.0 [facility] Comment on above: Performed By: #### 1 9123-9 #### KELECHI Garcia ([id number]) [facility] ([facility]) [address] [place] [address] Erythrocyte distribution width (RBC) [Ratio] 16.0 % High 11.5-14.5 [facility] Comment on above: Performed By: #### 1 9123-9 #### KELECHI Garcia ([id number]) [facility] ([facility]) [address] [place] [address] Hematocrit (Bld) [Volume fraction] 23.5 % Low 36.0-46.0 [facility] Comment on above: Performed By: #### 1 9123-9 #### KELECHI Garcia ([id number]) [facility] ([facility]) [address] [place] [address] Hemoglobin (Bld) [Mass/Vol] 7.9 g/dL Low 12.0-16.0 [facility] Comment on above: Performed By: #### 1 9123-9 #### KELECHI Garcia ([id number]) [facility] ([facility]) [address] [place] [address] Immature granulocytes (Bld) [#/Vol] 0.04 x10*3/uL Normal 0.00-0.50 [facility] Comment on above: Performed By: #### 1 9123-9 #### KELECHI Garcia ([id number]) [facility] ([facility]) [address] [place] [address] Immature granulocytes/100 WBC (Bld) 0.4 % Normal 0.0-0.9 [facility] Comment on above: Result Comment: Jannie ture Granulocyte Count (IG) includes promyelocytes, myelocytes and metamyelocytes but does not include bands. Percent differential counts (%) should be interpreted in the context of the absolute cell counts (cells/UL). Performed By: #### 1 9123-9 #### KELECHI Garcia ([id number]) [facility] ([facility]) [address] [place] [address] Lymphocytes (Bld) [#/Vol] 1.57 x10*3/uL Normal 0.80-3.00 [facility] Comment on above: Performed By: #### 1 9123-9 #### KELECHI Garcia ([id number]) [facility] ([facility]) [address] [place] [address] Lymphocytes/100 WBC (Bld) 14.1 % Normal 13.0-44.0 [facility] Comment on above: Performed By: #### 1 9123-9 #### KELECHI aGrcia ([id number]) [facility] ([facility]) [address] [place] [address] MCH (RBC) [Entitic mass] 31.9 pg Normal 26.0-34.0 [facility] Comment on above: Performed By: #### 1 9123-9 #### KELECHI Garcia ([id number]) [facility] ([facility]) [address] [place] [address] MCHC (RBC) [Mass/Vol] 33.6 g/dL Normal 32.0-36.0 [facility] Comment on above: Performed By: #### 1 9123-9 #### KELECHI Garcia ([id number]) [facility] ([facility]) [address] [place] [address] MCV (RBC) [Entitic vol] 95 fL Normal 80-100 U [facility] Comment on above: Performed By: #### 1 9123-9 #### KELECHI Garcia ([id number]) [facility] ([facility]) [address] [place] [address] Monocytes (Bld) [#/Vol] 1.17 x10*3/uL High 0.05-0.80 [facility] Comment on above: Performed By: #### 1 9123-9 #### KELECHI Garcia ([id number]) [facility] ([facility]) [address] [place] [address] Monocytes/100 WBC (Bld) 10.5 % Normal 2.0-10.0 [facility] Comment on above: Performed By: #### 1 9123-9 #### KELECHI Garcia ([id number]) [facility] ([facility]) [address] [place] [address] Neutrophils (Bld) [#/Vol] 7.86 x10*3/uL High 1.60-5.50 [facility] Comment on above: Result Comment: Perc ent differential counts (%) should be interpreted in the context of the absolute cell counts (cells/uL). Performed By: #### 1 9123-9 #### KELECHI Garcia ([id number]) [facility] ([facility]) [address] [place] [address] Neutrophils/100 WBC (Bld) 70.8 % Normal 40.0-80.0 [facility] Comment on above: Performed By: #### 1 9123-9 #### KELECHI Garcia ([id number]) [facility] ([facility]) [address] [place] [address] Nucleated RBC/100 WBC (Bld) [Ratio] 0.0 /100 WBCs Normal 0.0-0.0 [facility] Comment on above: Performed By: #### 1 9123-9 #### KELECHI Garcia ([id number]) [facility] ([facility]) [address] [place] [address] Platelets (Bld) [#/Vol] 369 x10*3/uL Normal 150-450 [facility] Comment on above: Performed By: #### 1 9123-9 #### KELECHI Garcia ([id number]) [facility] ([facility]) [address] [place] [address] RBC (Bld) [#/Vol] 2.48 x10*6/uL Low 4.00-5.20 [facility] Comment on above: Performed By: #### 1 9123-9 #### KELECHI Garcia ([id number]) [facility] ([facility]) [address] [place] [address] WBC (Bld) [#/Vol] 11.1 x10*3/uL Normal 4.4-11.3 [facility] Comment on above: Performed By: #### 1 9123-9 #### KELECHI Garcia ([id number]) [facility] ([facility]) [address] [place] [address] Basophils (Bld) [#/Vol] 0.15 10*3/uL High [facility] Basophils/100 WBC (Bld) 1.2 % 0.0 - 2.0 % [facility] Eosinophils (Bld) [#/Vol] 0.28 10*3/uL [facility] Eosinophils/100 WBC (Bld) 2.3 % 0.0 - 6.0 % [facility] Erythrocyte distribution width (RBC) [Ratio] 15.9 % High 11.5 - 14.5 % [facility] Hematocrit (Bld) [Volume fraction] 26.2 % Low 36.0 - 46.0 % [facility] Hemoglobin (Bld) [Mass/Vol] 8.4 g/dL Low 12.0 - 16.0 g/dL [facility] Immature granulocytes (Bld) [#/Vol] 0.04 10*3/uL [facility] Immature granulocytes/100 WBC (Bld) 0.3 % 0.0 - 0.9 % [facility] Comment on above: Immature Granulocyte Count (IG) includes promyelocytes, myelocytes and metamyelocytes but does not include bands. Percent differential counts (%) should be interpreted in the context of the absolute cell counts (cells/UL). Interpretation and review of laboratory results Abnormal [facility] Lymphocytes (Bld) [#/Vol] 1.44 10*3/uL [facility] Lymphocytes/100 WBC (Bld) 11.6 % 13.0 - 44.0 % [facility] MCH (RBC) [Entitic mass] 30.5 pg 26.0 - 34.0 pg [facility] MCHC (RBC) [Mass/Vol] 32.1 g/dL 32.0 - 36.0 g/dL [facility] MCV (RBC) [Entitic vol] 95 fL 80 - 100 fL [facility] Monocytes (Bld) [#/Vol] 0.97 10*3/uL High [facility] Monocytes/100 WBC (Bld) 7.8 % 2.0 - 10.0 % [facility] Neutrophils (Bld) [#/Vol] 9.54 10*3/uL High [facility] Comment on above: Percent differential counts (%) should be interpreted in the context of the absolute cell counts (cells/uL). Neutrophils/100 WBC (Bld) 76.8 % 40.0 - 80.0 % [facility] Nucleated RBC/100 WBC (Bld) [Ratio] 0 % [facility] Platelets (Bld) [#/Vol] 393 10*3/uL [facility] RBC (Bld) [#/Vol] 2.75 10*6/uL Low [facility] WBC (Bld) [#/Vol] 12.4 10*3/uL [facility] Basophils (Bld) [#/Vol] 0.15 x10*3/uL High 0.00-0.10 [facility] Comment on above: Performed By: #### 1 9123-9 #### KELECHI Garcia ([id number]) [facility] ([facility]) [address] [place] [address] Basophils/100 WBC (Bld) 1.2 % Normal 0.0-2.0 U [facility] Comment on above: Performed By: #### 1 9123-9 #### KELECHI VELÁZQUEZ L ([id number]) [facility] ([facility]) [address] [place] [address] Eosinophils (Bld) [#/Vol] 0.28 x10*3/uL Normal 0.00-0.40 [facility] Comment on above: Performed By: #### 1 9123-9 #### KELECHI VELÁZQUEZ L ([id number]) [facility] ([facility]) [address] [place] [address] Eosinophils/100 WBC (Bld) 2.3 % Normal 0.0-6.0 [facility] Comment on above: Performed By: #### 1 9123-9 #### KELECHI Garcia ([id number]) [facility] ([facility]) [address] [place] [address] Erythrocyte distribution width (RBC) [Ratio] 15.9 % High 11.5-14.5 [facility] Comment on above: Performed By: #### 1 9123-9 #### KELECHI Garcia ([id number]) [facility] ([facility]) [address] [place] [address] Hematocrit (Bld) [Volume fraction] 26.2 % Low 36.0-46.0 [facility] Comment on above: Performed By: #### 1 9123-9 #### KELECHI Garcia ([id number]) [facility] ([facility]) [address] [place] [address] Hemoglobin (Bld) [Mass/Vol] 8.4 g/dL Low 12.0-16.0 [facility] Comment on above: Performed By: #### 1 9123-9 #### KELECHI Garcia ([id number]) [facility] ([facility]) [address] [place] [address] Immature granulocytes (Bld) [#/Vol] 0.04 x10*3/uL Normal 0.00-0.50 [facility] Comment on above: Performed By: #### 1 9123-9 #### KELECHI Garcia ([id number]) [facility] ([facility]) [address] [place] [address] Immature granulocytes/100 WBC (Bld) 0.3 % Normal 0.0-0.9 [facility] Comment on above: Result Comment: Jannie ture Granulocyte Count (IG) includes promyelocytes, myelocytes and metamyelocytes but does not include bands. Percent differential counts (%) should be interpreted in the context of the absolute cell counts (cells/UL). Performed By: #### 1 9123-9 #### KELECHI Garcia ([id number]) [facility] ([facility]) [address] [place] [address] Lymphocytes (Bld) [#/Vol] 1.44 x10*3/uL Normal 0.80-3.00 [facility] Comment on above: Performed By: #### 1 9123-9 #### KELECHI Garcia ([id number]) [facility] ([facility]) [address] [place] [address] Lymphocytes/100 WBC (Bld) 11.6 % Normal 13.0-44.0 [facility] Comment on above: Performed By: #### 1 9123-9 #### KELECHI Garcia ([id number]) [facility] ([facility]) [address] [place] [address]309 MCH (RBC) [Entitic mass] 30.5 pg Normal 26.0-34.0 [facility] Comment on above: Performed By: #### 1 9123-9 #### KELECHI Garcia ([id number]) [facility] ([facility]) [address] [place] [address] MCHC (RBC) [Mass/Vol] 32.1 g/dL Normal 32.0-36.0 [facility] Comment on above: Performed By: #### 1 9123-9 #### KELECHI Garcia ([id number]) [facility] ([facility]) [address] [place] [address]99 MCV (RBC) [Entitic vol] 95 fL Normal 80-100 U [facility] Comment on above: Performed By: #### 1 9123-9 #### KELECHI Garcia ([id number]) [facility] ([facility]) [address] [place] [address]134 Monocytes (Bld) [#/Vol] 0.97 x10*3/uL High 0.05-0.80 [facility] Comment on above: Performed By: #### 1 9123-9 #### KELECHI Garcia ([id number]) [facility] ([facility]) [address] [place] [address] Monocytes/100 WBC (Bld) 7.8 % Normal 2.0-10.0 [facility] Comment on above: Performed By: #### 1 9123-9 #### KELECHI Garcia ([id number]) [facility] ([facility]) [address] [place] [address] Neutrophils (Bld) [#/Vol] 9.54 x10*3/uL High 1.60-5.50 [facility] Comment on above: Result Comment: Perc ent differential counts (%) should be interpreted in the context of the absolute cell counts (cells/uL). Performed By: #### 1 9123-9 #### KELECHI Garcia ([id number]) [facility] ([facility]) [address] [place] [address] 89689 Neutrophils/100 WBC (Bld) 76.8 % Normal 40.0-80.0 [facility] Comment on above: Performed By: #### 1 9123-9 #### KELECHI Garcia ([id number]) [facility] ([facility]) [address] [place] [address] 97685 Nucleated RBC/100 WBC (Bld) [Ratio] 0.0 /100 WBCs Normal 0.0-0.0 [facility] Comment on above: Performed By: #### 1 9123-9 #### KELECHI Garcia ([id number]) [facility] ([facility]) [address] [place] [address]389 Platelets (Bld) [#/Vol] 393 x10*3/uL Normal 150-450 [facility] Comment on above: Performed By: #### 1 9123-9 #### KELECHI Garcia ([id number]) [facility] ([facility]) [address] [place] [address]328 RBC (Bld) [#/Vol] 2.75 x10*6/uL Low 4.00-5.20 [facility] Comment on above: Performed By: #### 1 9123-9 #### KELECHI Garcia ([id number]) [facility] ([facility]) [address] [place] [address] WBC (Bld) [#/Vol] 12.4 x10*3/uL High 4.4-11.3 [facility] Comment on above: Performed By: #### 1 9123-9 #### KELECHI Garcia ([id number]) [facility] ([facility]) [address] [place] [address] Basophils (Bld) [#/Vol] 0.15 10*3/uL High [facility] Basophils/100 WBC (Bld) 1.3 % 0.0 - 2.0 % [facility] Eosinophils (Bld) [#/Vol] 0.32 10*3/uL [facility] Eosinophils/100 WBC (Bld) 2.7 % 0.0 - 6.0 % [facility] Erythrocyte distribution width (RBC) [Ratio] 15.5 % High 11.5 - 14.5 % [facility] Hematocrit (Bld) [Volume fraction] 22.9 % Low 36.0 - 46.0 % [facility] Hemoglobin (Bld) [Mass/Vol] 7.5 g/dL Low 12.0 - 16.0 g/dL [facility] Immature granulocytes (Bld) [#/Vol] 0.07 10*3/uL [facility] Immature granulocytes/100 WBC (Bld) 0.6 % 0.0 - 0.9 % [facility] Comment on above: Immature Granulocyte Count (IG) includes promyelocytes, myelocytes and metamyelocytes but does not include bands. Percent differential counts (%) should be interpreted in the context of the absolute cell counts (cells/UL). Interpretation and review of laboratory results Abnormal [facility] Lymphocytes (Bld) [#/Vol] 1.67 10*3/uL [facility] Lymphocytes/100 WBC (Bld) 14 % 13.0 - 44.0 % [facility] MCH (RBC) [Entitic mass] 30.9 pg 26.0 - 34.0 pg [facility] MCHC (RBC) [Mass/Vol] 32.8 g/dL 32.0 - 36.0 g/dL [facility] MCV (RBC) [Entitic vol] 94 fL 80 - 100 fL [facility] Monocytes (Bld) [#/Vol] 1.39 10*3/uL High [facility] Monocytes/100 WBC (Bld) 11.7 % 2.0 - 10.0 % [facility] Neutrophils (Bld) [#/Vol] 8.33 10*3/uL High [facility] Comment on above: Percent differential counts (%) should be interpreted in the context of the absolute cell counts (cells/uL). Neutrophils/100 WBC (Bld) 69.7 % 40.0 - 80.0 % [facility] Nucleated RBC/100 WBC (Bld) [Ratio] 0 % [facility] Platelets (Bld) [#/Vol] 360 10*3/uL [facility] RBC (Bld) [#/Vol] 2.43 10*6/uL Low [facility] WBC (Bld) [#/Vol] 11.9 10*3/uL High [facility] Basophils (Bld) [#/Vol] 0.15 x10*3/uL High 0.00-0.10 [facility] Comment on above: Performed By: #### 5 7021-8 #### KELECHI Garcia ([id number]) [facility] ([facility]) [address] [place] [address] Basophils/100 WBC (Bld) 1.3 % Normal 0.0-2.0 [facility] Comment on above: Performed By: #### 5 7021-8 #### KELECHI VELÁZQUEZ L ([id number]) [facility] ([facility]) [address] [place] [address] Eosinophils (Bld) [#/Vol] 0.32 x10*3/uL Normal 0.00-0.40 [facility] Comment on above: Performed By: #### 5 7021-8 #### KELECHI Garcia ([id number]) [facility] ([facility]) [id number] [place] [address]23 Eosinophils/100 WBC (Bld) 2.7 % Normal 0.0-6.0 [facility] Comment on above: Performed By: #### 5 7021-8 #### KELECHI Garcia ([id number]) [facility] ([facility]) [address] [place] [address] 42035 Erythrocyte distribution width (RBC) [Ratio] 15.5 % High 11.5-14.5 [facility] Comment on above: Performed By: #### 5 7021-8 #### KELECHI Garcia ([id number]) [facility] ([facility]) [address] [place] [address] 66709 Hematocrit (Bld) [Volume fraction] 22.9 % Low 36.0-46.0 [facility] Comment on above: Performed By: #### 5 7021-8 #### KELECHI Garcia ([id number]) [facility] ([facility]) [address] [place] [address] 18011 Hemoglobin (Bld) [Mass/Vol] 7.5 g/dL Low 12.0-16.0 [facility] Comment on above: Performed By: #### 5 7021-8 #### KELECHI Garcia ([id number]) [facility] ([facility]) [address] [place] [address] 70156 Immature granulocytes (Bld) [#/Vol] 0.07 x10*3/uL Normal 0.00-0.50 [facility] Comment on above: Performed By: #### 5 7021-8 #### KELECHI Garcia ([id number]) [facility] ([facility]) [address] [place] [address] 55545 Immature granulocytes/100 WBC (Bld) 0.6 % Normal 0.0-0.9 [facility] Comment on above: Result Comment: Jannie ture Granulocyte Count (IG) includes promyelocytes, myelocytes and metamyelocytes but does not include bands. Percent differential counts (%) should be interpreted in the context of the absolute cell counts (cells/UL). Performed By: #### 5 7021-8 #### KELECHI Garcia ([id number]) [facility] ([facility]) [id number] [place] [address] 23857 Lymphocytes (Bld) [#/Vol] 1.67 x10*3/uL Normal 0.80-3.00 [facility] Comment on above: Performed By: #### 5 7021-8 #### KELECHI Garcia ([id number]) [facility] ([facility]) [address] [place] [address] 36212 Lymphocytes/100 WBC (Bld) 14.0 % Normal 13.0-44.0 [facility] Comment on above: Performed By: #### 5 7021-8 #### KELECHI Garcia ([id number]) [facility] ([facility]) [address] [place] [address] 09914 MCH (RBC) [Entitic mass] 30.9 pg Normal 26.0-34.0 [facility] Comment on above: Performed By: #### 5 7021-8 #### KELECHI Garcia ([id number]) [facility] ([facility]) [id number] [place] [address] 46009 MCHC (RBC) [Mass/Vol] 32.8 g/dL Normal 32.0-36.0 [facility] Comment on above: Performed By: #### 5 7021-8 #### KELECHI Garcia ([id number]) [facility]) [id number] [place] [address] 57897 MCV (RBC) [Entitic vol] 94 fL Normal 80-100 U [facility] Comment on above: Performed By: #### 5 7021-8 #### KELECHI Garcia ([id number]) [facility] ([facility]) [address] [place] [address] 30039 Monocytes (Bld) [#/Vol] 1.39 x10*3/uL High 0.05-0.80 [facility] Comment on above: Performed By: #### 5 7021-8 #### KELECHI Garcia ([id number]) [facility] ([facility]) [address] [place] [address] Monocytes/100 WBC (Bld) 11.7 % Normal 2.0-10.0 [facility] Comment on above: Performed By: #### 5 7021-8 #### KELECHI Garcia ([id number]) [facility] ([facility]) [address] [place] [address] 23484 Neutrophils (Bld) [#/Vol] 8.33 x10*3/uL High 1.60-5.50 [facility] Comment on above: Result Comment: Perc ent differential counts (%) should be interpreted in the context of the absolute cell counts (cells/uL). Performed By: #### 5 7021-8 #### KELECHI Garcia ([id number]) [facility] ([facility]) [id number] [place] [address] 49612 Neutrophils/100 WBC (Bld) 69.7 % Normal 40.0-80.0 [facility] Comment on above: Performed By: #### 5 7021-8 #### KELECHI Garcia ([id number]) [facility] ([facility]) [address] [place] [address] 33324 Nucleated RBC/100 WBC (Bld) [Ratio] 0.0 /100 WBCs Normal 0.0-0.0 [facility] Comment on above: Performed By: #### 5 7021-8 #### KELECHI Garcia ([id number]) [facility] ([facility]) [address] [place] [address] 74870 Platelets (Bld) [#/Vol] 360 x10*3/uL Normal 150-450 [facility] Comment on above: Performed By: #### 5 7021-8 #### KELECHI Garcia ([id number]) [facility] ([facility]) [address] [place] [address] 02462 RBC (Bld) [#/Vol] 2.43 x10*6/uL Low 4.00-5.20 [facility] Comment on above: Performed By: #### 5 7021-8 #### KELECHI Garcia ([id number]) [facility] ([facility]) [address] [place] [address] WBC (Bld) [#/Vol] 11.9 x10*3/uL High 4.4-11.3 [facility] Comment on above: Performed By: #### 5 7021-8 #### KELECHI Garcia ([id number]) [facility] ([facility]) [address] [place] [address] Basophils (Bld) [#/Vol] 0.12 10*3/uL High [facility] Basophils/100 WBC (Bld) 1 % 0.0 - 2.0 % [facility] Eosinophils (Bld) [#/Vol] 0.23 10*3/uL [facility] Eosinophils/100 WBC (Bld) 1.9 % 0.0 - 6.0 % [facility] Erythrocyte distribution width (RBC) [Ratio] 15.7 % High 11.5 - 14.5 % [facility] Hematocrit (Bld) [Volume fraction] 21.1 % Low 36.0 - 46.0 % [facility] Hemoglobin (Bld) [Mass/Vol] 6.8 g/dL Low 12.0 - 16.0 g/dL [facility] Immature granulocytes (Bld) [#/Vol] 0.04 10*3/uL [facility] Immature granulocytes/100 WBC (Bld) 0.3 % 0.0 - 0.9 % [facility] Comment on above: Immature Granulocyte Count (IG) includes promyelocytes, myelocytes and metamyelocytes but does not include bands. Percent differential counts (%) should be interpreted in the context of the absolute cell counts (cells/UL). Interpretation and review of laboratory results Abnormal [facility] Lymphocytes (Bld) [#/Vol] 1 10*3/uL [facility] Lymphocytes/100 WBC (Bld) 8.1 % 13.0 - 44.0 % [facility] MCH (RBC) [Entitic mass] 30.4 pg 26.0 - 34.0 pg [facility] MCHC (RBC) [Mass/Vol] 32.2 g/dL 32.0 - 36.0 g/dL [facility] MCV (RBC) [Entitic vol] 94 fL 80 - 100 fL [facility] Monocytes (Bld) [#/Vol] 1.23 10*3/uL [facility] Monocytes/100 WBC (Bld) 10 % 2.0 - 10.0 % [facility] Neutrophils (Bld) [#/Vol] 9.7 10*3/uL [facility] Comment on above: Percent differential counts (%) should be interpreted in the context of the absolute cell counts (cells/uL). Neutrophils/100 WBC (Bld) 78.7 % 40.0 - 80.0 % [facility] Nucleated RBC/100 WBC (Bld) [Ratio] 0 % [facility] Platelets (Bld) [#/Vol] 366 10*3/uL [facility] RBC (Bld) [#/Vol] 2.24 10*6/uL Low [facility] WBC (Bld) [#/Vol] 12.3 10*3/uL High [facility] Panel Informationon 09-01 Interpretation and review of laboratory results Abnormal [facility] Vancomycinon 09-01-2024 Vancomycin [Mass/Vol] 25.3 ug/mL High 5.0 - 20.0 ug/mL [facility] Vancomycin [Mass/Vol] 25.3 ug/mL High 5.0-20.0 [facility] Comment on above: Order Comment: Vanco mycin [...] By: #### 1 9123-9 #### KELECHI Garcia ([id number]) [facility] ([facility]) [address] [place] [address] Vancomycin [Mass/Vol]on 08-05 Vancomycin levels can be [...] 30.0-40.0 ug/mL Trough (all ages): 10.0-20.0 ug/mL [facility] Basic metabolic 2000 panelon 08-31-2024 Anion gap [Moles/Vol] 19 mmol/L 10 - 2 0 mmol/L [facility] Calcium [Mass/Vol] 7.3 mg/dL Low 8.6 - 10. 6 mg/dL [facility] Chloride [Moles/Vol] 89 mmol/L Low 98 - 10 7 mmol/L [facility] CO2 [Moles/Vol] 28 mmol/L 21 - 32 mmol/L [facility] Creatinine [Mass/Vol] 7.69 mg/dL High 0.50 - 1.05 mg/dL [facility] GFR/1.73 sq M.predicted among non-blacks MDRD (S/P/Bld) [Vol rate/Area] 5 mL/min/{1.73_m2} Low - PINF [facility] Comment on above: Calculations of katy mated GFR are performed using the 2020 CKD-EPI Study Refit equation without the race variable for the IDMS-Traceable creatinine methods. https://jasn.asnjournals.org/content//ASN.2020 690009 Glucose [Mass/Vol] 74 mg/dL 74 - 99 mg/dL [facility] Potassium [Moles/Vol] 4.2 mmol/L 3.5 - 5.3 mmol/L [facility] Sodium [Moles/Vol] 132 mmol/L Low 136 - 145 mmol/L [facility] Urea nitrogen [Mass/Vol] 45 mg/dL High 6 - 23 mg/dL [facility] Anion gap [Moles/Vol] 19 mmol/L Normal 10-20 [facility] Comment on above: Performed By: #### 2 4321-2 #### KELECHI VELÁZQUEZ L ([id number]) [facility] ([facility]) [address] [place] [address] Calcium [Mass/Vol] 7.3 mg/dL Low 8.6-10.6 [facility] Comment on above: Performed By: #### 2 4321-2 #### KELECHI VELÁZQUEZ L ([id number]) [facility] ([facility]) [address] [place] [address] 18449 Chloride [Moles/Vol] 89 mmol/L Low 98-107 [facility] Comment on above: Performed By: #### 2 4321-2 #### KELECHI VELÁZQUEZ L ([id number]) [facility] ([facility]) [address] [place] [address] CO2 [Moles/Vol] 28 mmol/L Normal 21-32 [facility] Comment on above: Performed By: #### 2 4321-2 #### KELECHI VELÁZQUEZ L ([id number]) [facility] ([facility]) [address] [place] [address] 20497 Creatinine [Mass/Vol] 7.69 mg/dL High 0.50-1.05 [facility] Comment on above: Performed By: #### 2 4321-2 #### KELECHI TAOTZMARCY L ([id number]) [facility] ([facility]) [address] [place] [address] 14268 Glomerular filtration rate/1.73 sq M.predicted 5 mL/min/1.73m*2 Low >60 [facility] Comment on above: Result Comment: Calc ulations of estimated GFR are performed using the 2020 CKD-EPI Study Refit equation without the race variable for the IDMS-Traceable creatinine methods. https://jasn.asnjournals.org/content/early/ASN 786597 Performed By: #### 2 4321-2 #### KELECHI Garcia ([id number]) [facility] ([facility]) [address] [place] [address] 57012 Glucose [Mass/Vol] 74 mg/dL Normal 74-99 [facility] Comment on above: Performed By: #### 2 4321-2 #### KELECHI Garcia ([id number]) [facility] ([facility]) [address] [place] [address] 85208 Potassium [Moles/Vol] 4.2 mmol/L Normal 3.5-5.3 [facility] Comment on above: Performed By: #### 2 4321-2 #### KELECHI Garcia ([id number]) [facility] ([facility]) [address] [place] [address] 76315 Sodium [Moles/Vol] 132 mmol/L Low 136-145 [facility] Comment on above: Performed By: #### 2 4321-2 #### KELECHI Garcia ([id number]) [facility] ([facility]) [address] [place] [address] 30805 Urea nitrogen [Mass/Vol] 45 mg/dL High 6-23 [facility] Comment on above: Performed By: #### 2 4321-2 #### KELECHI Garcia ([id number]) [facility] ([facility]) [address] [place] [address] 88805 Blood type and Indirect anti body screen panel (Bld)on 08-31-2024 ABO group Nom (Bld) O [facility] Blood group antibody screen Ql Negative [facility] D Ag Ql (Bld) Positive [facility] ABO group Nom (Bld) O Normal [facility] Comment on above: Performed By: #### 5 7021-8 #### KELECHI Garcia ([id number]) [facility] ([facility]) [address] [place] [address] 60843 Blood group antibody screen Ql Negative [facility] Comment on above: Performed By: #### 5 7021-8 #### KELECHI Garcia ([id number]) [facility] ([facility]) [id number] [place] [address] 09787 D Ag Ql (Bld) Positive [facility] Comment on above: Performed By: #### 5 7021-8 #### KELECHI Garcia ([id number]) [facility] ([facility]) [address] [place], [place] [id number] ABO group Nom (Bld) O [facility] Blood group antibody screen Ql Negative [facility] D Ag Ql (Bld) Positive [facility] Comment on above: 2nd ABO test require d. Order and Collect VERAB [facility] ABO group Nom (Bld) O Normal [facility] Comment on above: Performed By: #### 3 4532-2 #### KELECHI Garcia ([id number]) [facility] ([facility]) [address] [place], [place] [phone] Blood group antibody screen Ql Negative [facility] Comment on above: Performed By: #### 3 4532-2 #### KELECHI Garcia ([id number]) [facility] ([facility]) [address] [place], [place] [phone] D Ag Ql (Bld) Positive [facility] Comment on above: Result Comment: 2nd ABO test required. Order and Collect VERAB Performed By: #### 3 4532-2 #### KELECHI Garcia ([id number]) [facility] ([facility]) [address] [place] [address] 34062 CBC W Auto Differential pane l (Bld)on 08-31-2024 Basophils (Bld) [#/Vol] 0.13 10*3/uL [facility] Basophils/100 WBC (Bld) 1 % 0.0 - 2.0 % [facility] Eosinophils (Bld) [#/Vol] 0.34 10*3/uL [facility] Eosinophils/100 WBC (Bld) 2.6 % 0.0 - 6.0 % [facility] Erythrocyte distribution width (RBC) [Ratio] 15.7 % High 11.5 - 14.5 % [facility] Hematocrit (Bld) [Volume fraction] 19.6 % Low 36.0 - 46.0 % [facility] Hemoglobin (Bld) [Mass/Vol] 6.4 g/dL Critically low 12.0 - 16.0 g/dL [facility] Immature granulocytes (Bld) [#/Vol] 0.05 10*3/uL [facility] Immature granulocytes/100 WBC (Bld) 0.4 % 0.0 - 0.9 % [facility] Comment on above: Immature Granulocyte Count (IG) includes promyelocytes, myelocytes and metamyelocytes but does not include bands. Percent differential counts (%) should be interpreted in the context of the absolute cell counts (cells/UL). Interpretation and review of laboratory results Abnormal [facility] Lymphocytes (Bld) [#/Vol] 1.29 10*3/uL [facility] Lymphocytes/100 WBC (Bld) 9.8 % 13.0 - 44.0 % [facility] MCH (RBC) [Entitic mass] 30.3 pg 26.0 - 34.0 pg [facility] MCHC (RBC) [Mass/Vol] 32.7 g/dL 32.0 - 36.0 g/dL [facility] MCV (RBC) [Entitic vol] 93 fL 80 - 100 fL [facility] Monocytes (Bld) [#/Vol] 0.95 10*3/uL High [facility] Monocytes/100 WBC (Bld) 7.2 % 2.0 - 10.0 % [facility] Neutrophils (Bld) [#/Vol] 10.47 10*3/uL High [facility] Comment on above: Percent differential counts (%) should be interpreted in the context of the absolute cell counts (cells/uL). Neutrophils/100 WBC (Bld) 79 % 40.0 - 80.0 % [facility] Nucleated RBC/100 WBC (Bld) [Ratio] 0 % [facility] Platelets (Bld) [#/Vol] 347 10*3/uL [facility] RBC (Bld) [#/Vol] 2.11 10*6/uL Low [facility] WBC (Bld) [#/Vol] 13.2 10*3/uL High [facility] Basophils (Bld) [#/Vol] 0.13 x10*3/uL High 0.00-0.10 [facility] Comment on above: Performed By: #### 5 7021-8 #### KELECHI Garcia ([id number]) [facility] ([facility]) [address] [place] [address] 10369 Basophils/100 WBC (Bld) 1.0 % Normal 0.0-2.0 [facility] Comment on above: Performed By: #### 5 7021-8 #### KELECHI Garcia ([id number]) [facility] ([facility]) [address] [place] [address] 64862 Eosinophils (Bld) [#/Vol] 0.34 x10*3/uL Normal 0.00-0.40 [facility] Comment on above: Performed By: #### 5 7021-8 #### KELECHI Garcia ([id number]) [facility] ([facility]) [address] [place] [address] 01641 Eosinophils/100 WBC (Bld) 2.6 % Normal 0.0-6.0 [facility] Comment on above: Performed By: #### 5 7021-8 #### KELECHI Garcia ([id number]) [facility] ([facility]) [address] [place] [address] 76817 Erythrocyte distribution width (RBC) [Ratio] 15.7 % High 11.5-14.5 [facility] Comment on above: Performed By: #### 5 7021-8 #### KELECHI Garcia ([id number]) [facility] ([facility]) [address] [place] [address] 68106 Hematocrit (Bld) [Volume fraction] 19.6 % Low 36.0-46.0 [facility] Comment on above: Performed By: #### 5 7021-8 #### KELECHI TAOTZER L ([id number]) [facility] ([facility]) [address] [place] [address] 48420 Hemoglobin (Bld) [Mass/Vol] 6.4 g/dL Critically low 12.0-16.0 [facility] Comment on above: Performed By: #### 5 7021-8 #### KELECHI SCHMOTZER L ([id number]) [facility] ([facility]) [address] [place] [address] 66810 Immature granulocytes (Bld) [#/Vol] 0.05 x10*3/uL Normal 0.00-0.50 [facility] Comment on above: Performed By: #### 5 7021-8 #### KELECHI VELEZMOTZER L ([id number]) [facility] ([facility]) [address] [place] [address] 52891 Immature granulocytes/100 WBC (Bld) 0.4 % Normal 0.0-0.9 [facility] Comment on above: Result Comment: Jannie ture Granulocyte Count (IG) includes promyelocytes, myelocytes and metamyelocytes but does not include bands. Percent differential counts (%) should be interpreted in the context of the absolute cell counts (cells/UL). Performed By: #### 5 7021-8 #### KELECHI VELÁZQUEZ L ([id number]) [facility] ([facility]) [address] [place] [address] 29784 Lymphocytes (Bld) [#/Vol] 1.29 x10*3/uL Normal 0.80-3.00 [facility] Comment on above: Performed By: #### 5 7021-8 #### KELECHI VELEZMOTZER L ([id number]) [facility] ([facility]) [address] [place] [address] 87896 Lymphocytes/100 WBC (Bld) 9.8 % Normal 13.0-44.0 [facility] Comment on above: Performed By: #### 5 7021-8 #### KELECHI VELEZMOTZER L ([id number]) [facility] ([facility]) [address] [place] [address] MCH (RBC) [Entitic mass] 30.3 pg Normal 26.0-34.0 [facility] Comment on above: Performed By: #### 5 7021-8 #### KELECHI Garcia ([id number]) [facility] ([facility]) [address] [place] [address] MCHC (RBC) [Mass/Vol] 32.7 g/dL Normal 32.0-36.0 [facility] Comment on above: Performed By: #### 5 7021-8 #### KELECHI Garcia ([id number]) [facility] ([facility]) [address] [place] [address] 08035 MCV (RBC) [Entitic vol] 93 fL Normal 80-100 U [facility] Comment on above: Performed By: #### 5 7021-8 #### KELECHI Garcia ([id number]) [facility] ([facility]) [address] [place] [address] 61027 Monocytes (Bld) [#/Vol] 0.95 x10*3/uL High 0.05-0.80 [facility] Comment on above: Performed By: #### 5 7021-8 #### KELECHI Garcia ([id number]) [facility] ([facility]) [address] [place] [address] 25154 Monocytes/100 WBC (Bld) 7.2 % Normal 2.0-10.0 [facility] Comment on above: Performed By: #### 5 7021-8 #### KELECHI Garcia ([id number]) [facility] ([facility]) [address] [place] [address] Neutrophils (Bld) [#/Vol] 10.47 x10*3/uL High 1.60-5.50 [facility] Comment on above: Result Comment: Perc ent differential counts (%) should be interpreted in the context of the absolute cell counts (cells/uL). Performed By: #### 5 7021-8 #### KELECHI Garcia ([id number]) [facility] ([facility]) [address] [place] [address] 20029 Neutrophils/100 WBC (Bld) 79.0 % Normal 40.0-80.0 [facility] Comment on above: Performed By: #### 5 7021-8 #### KELECHI Garcia ([id number]) [facility] ([facility]) [address] [place] [address] 64476 Nucleated RBC/100 WBC (Bld) [Ratio] 0.0 /100 WBCs Normal 0.0-0.0 [facility] Comment on above: Performed By: #### 5 7021-8 #### KELECHI Garcia ([id number]) [facility] ([facility]) [address] [place] [address] 05753 Platelets (Bld) [#/Vol] 347 x10*3/uL Normal 150-450 [facility] Comment on above: Performed By: #### 5 7021-8 #### KELECHI Garcia ([id number]) [facility] ([facility]) [address] [place] [address] 02345 RBC (Bld) [#/Vol] 2.11 x10*6/uL Low 4.00-5.20 [facility] Comment on above: Performed By: #### 5 7021-8 #### KELECHI Garcia ([id number]) [facility] ([facility]) [address] [place] [address] 22558 WBC (Bld) [#/Vol] 13.2 x10*3/uL High 4.4-11.3 [facility] Comment on above: Performed By: #### 5 7021-8 #### KELECHI Garcia ([id number]) [facility] ([facility]) [address] [place] [address] 84255 Basophils (Bld) [#/Vol] 0.19 10*3/uL High [facility] Basophils/100 WBC (Bld) 1.2 % 0.0 - 2.0 % [facility] Eosinophils (Bld) [#/Vol] 0.37 10*3/uL [facility] Eosinophils/100 WBC (Bld) 2.4 % 0.0 - 6.0 % [facility] Erythrocyte distribution width (RBC) [Ratio] 16.1 % High 11.5 - 14.5 % [facility] Hematocrit (Bld) [Volume fraction] 22.7 % Low 36.0 - 46.0 % [facility] Hemoglobin (Bld) [Mass/Vol] 7.2 g/dL Low 12.0 - 16.0 g/dL [facility] Immature granulocytes (Bld) [#/Vol] 0.12 10*3/uL [facility] Immature granulocytes/100 WBC (Bld) 0.8 % 0.0 - 0.9 % [facility] Comment on above: Immature Granulocyte Count (IG) includes promyelocytes, myelocytes and metamyelocytes but does not include bands. Percent differential counts (%) should be interpreted in the context of the absolute cell counts (cells/UL). Interpretation and review of laboratory results Abnormal [facility] Lymphocytes (Bld) [#/Vol] 1.36 10*3/uL [facility] Lymphocytes/100 WBC (Bld) 8.8 % 13.0 - 44.0 % [facility] MCH (RBC) [Entitic mass] 30 pg 26.0 - 34.0 pg [facility] MCHC (RBC) [Mass/Vol] 31.7 g/dL Low 32.0 - 36.0 g/dL [facility] MCV (RBC) [Entitic vol] 95 fL 80 - 100 fL [facility] Monocytes (Bld) [#/Vol] 1.1 10*3/uL High [facility] Monocytes/100 WBC (Bld) 7.1 % 2.0 - 10.0 % [facility] Neutrophils (Bld) [#/Vol] 12.33 10*3/uL High [facility] Comment on above: Percent differential counts (%) should be interpreted in the context of the absolute cell counts (cells/uL). Neutrophils/100 WBC (Bld) 79.7 % 40.0 - 80.0 % [facility] Nucleated RBC/100 WBC (Bld) [Ratio] 0 % [facility] Platelets (Bld) [#/Vol] 353 10*3/uL [facility] RBC (Bld) [#/Vol] 2.4 10*6/uL Low [facility] WBC (Bld) [#/Vol] 15.5 10*3/uL High [facility] Basophils (Bld) [#/Vol] 0.19 x10*3/uL High 0.00-0.10 [facility] Comment on above: Performed By: #### 5 7021-8 #### KELECHI Garcia ([id number]) [facility] ([facility]) [address] [place] [address] 38861 Basophils/100 WBC (Bld) 1.2 % Normal 0.0-2.0 [facility] Comment on above: Performed By: #### 5 7021-8 #### KELECHI VELÁZQUEZ L ([id number]) [facility] ([facility]) [address] [place] [address] 41711 Eosinophils (Bld) [#/Vol] 0.37 x10*3/uL Normal 0.00-0.40 [facility] Comment on above: Performed By: #### 5 7021-8 #### KELECHI VELÁZQUEZ L ([id number]) [facility] ([facility]) [address] [place] [address] 68744 Eosinophils/100 WBC (Bld) 2.4 % Normal 0.0-6.0 [facility] Comment on above: Performed By: #### 5 7021-8 #### KELECHI VELÁZQUEZ L ([id number]) [facility] ([facility]) [address] [place] [address] 34367 Erythrocyte distribution width (RBC) [Ratio] 16.1 % High 11.5-14.5 [facility] Comment on above: Performed By: #### 5 7021-8 #### KELECHI VELÁZQUEZ L ([id number]) [facility] ([facility]) [address] [place] [address] 95811 Hematocrit (Bld) [Volume fraction] 22.7 % Low 36.0-46.0 [facility] Comment on above: Performed By: #### 5 7021-8 #### KELECHI Garcia ([id number]) [facility] ([facility]) [address] [place] [address] Hemoglobin (Bld) [Mass/Vol] 7.2 g/dL Low 12.0-16.0 [facility] Comment on above: Performed By: #### 5 7021-8 #### KELECHI VELEZMOTZER L ([id number]) [facility] ([facility]) [id number] [place] [address] 35657 Immature granulocytes (Bld) [#/Vol] 0.12 x10*3/uL Normal 0.00-0.50 [facility] Comment on above: Performed By: #### 5 7021-8 #### KELECHI VELÁZQUEZ L ([id number]) [facility] ([facility]) [address] [place] [address] 62805 Immature granulocytes/100 WBC (Bld) 0.8 % Normal 0.0-0.9 [facility] Comment on above: Result Comment: Jannie ture Granulocyte Count (IG) includes promyelocytes, myelocytes and metamyelocytes but does not include bands. Percent differential counts (%) should be interpreted in the context of the absolute cell counts (cells/UL). Performed By: #### 5 7021-8 #### KELECHI Garcia ([id number]) [facility] ([facility]) [address] [place] [address] Lymphocytes (Bld) [#/Vol] 1.36 x10*3/uL Normal 0.80-3.00 [facility] Comment on above: Performed By: #### 5 7021-8 #### KELECHI VELÁZQUEZ L ([id number]) [facility] ([facility]) [address] [place] [address] Lymphocytes/100 WBC (Bld) 8.8 % Normal 13.0-44.0 [facility] Comment on above: Performed By: #### 5 7021-8 #### KELECHI VELEZMODEBBI L ([id number]) [facility] ([facility]) [address] [place] [address] MCH (RBC) [Entitic mass] 30.0 pg Normal 26.0-34.0 [facility] Comment on above: Performed By: #### 5 7021-8 #### KELECHI Garcia ([id number]) [facility] ([facility]) [address] [place] [address] 46039 MCHC (RBC) [Mass/Vol] 31.7 g/dL Low 32.0-36.0 [facility] Comment on above: Performed By: #### 5 7021-8 #### KELECHI Garcia ([id number]) [facility] ([facility]) [address] [place] [address] 06041 MCV (RBC) [Entitic vol] 95 fL Normal 80-100 [facility] Comment on above: Performed By: #### 5 7021-8 #### KELECHI Garcia ([id number]) [facility] ([facility]) [address] [place] [address] 95453 Monocytes (Bld) [#/Vol] 1.10 x10*3/uL High 0.05-0.80 [facility] Comment on above: Performed By: #### 5 7021-8 #### KELECHI Garcia ([id number]) [facility] ([facility]) [address] [place] [address] 99322 Monocytes/100 WBC (Bld) 7.1 % Normal 2.0-10.0 [facility] Comment on above: Performed By: #### 5 7021-8 #### KELECHI Garcia ([id number]) [facility] ([facility]) [address] [place] [address] 43426 Neutrophils (Bld) [#/Vol] 12.33 x10*3/uL High 1.60-5.50 [facility] Comment on above: Result Comment: Perc ent differential counts (%) should be interpreted in the context of the absolute cell counts (cells/uL). Performed By: #### 5 7021-8 #### KELECHI Garcia ([id number]) [facility] ([facility]) [address] [place] [address] Neutrophils/100 WBC (Bld) 79.7 % Normal 40.0-80.0 [facility] Comment on above: Performed By: #### 5 7021-8 #### KELECHI Garcia ([id number]) [facility] ([facility]) [address] [place] [address] 80587 Nucleated RBC/100 WBC (Bld) [Ratio] 0.0 /100 WBCs Normal 0.0-0.0 [facility] Comment on above: Performed By: #### 5 7021-8 #### KELECHI Garcia ([id number]) [facility] ([facility]) [address] [place] [address] 69354 Platelets (Bld) [#/Vol] 353 x10*3/uL Normal 150-450 [facility] Comment on above: Performed By: #### 5 7021-8 #### KELECHI Garcia ([id number]) [facility] ([facility]) [address] [place] [address] 88297 RBC (Bld) [#/Vol] 2.40 x10*6/uL Low 4.00-5.20 [facility] Comment on above: Performed By: #### 5 7021-8 #### KELECHI Garcia ([id number]) [facility] ([facility]) [address] [place] [address] 15664 WBC (Bld) [#/Vol] 15.5 x10*3/uL High 4.4-11.3 [facility] Comment on above: Performed By: #### 5 7021-8 #### KELECHI Garcia ([id number]) [facility] ([facility]) [address] [place] [address] 61612 Basophils (Bld) [#/Vol] 0.16 10*3/uL High [facility] Basophils/100 WBC (Bld) 1.1 % 0.0 - 2.0 % [facility] Eosinophils (Bld) [#/Vol] 0.46 10*3/uL High [facility] Eosinophils/100 WBC (Bld) 3.2 % 0.0 - 6.0 % [facility] Immature granulocytes (Bld) [#/Vol] 0.07 10*3/uL [facility] Immature granulocytes/100 WBC (Bld) 0.5 % 0.0 - 0.9 % [facility] Comment on above: Immature Granulocyte Count (IG) includes promyelocytes, myelocytes and metamyelocytes but does not include bands. Percent differential counts (%) should be interpreted in the context of the absolute cell counts (cells/UL). Lymphocytes (Bld) [#/Vol] 1.77 10*3/uL [facility] Lymphocytes/100 WBC (Bld) 12.3 % 13.0 - 44.0 % [facility] Monocytes (Bld) [#/Vol] 1.25 10*3/uL [facility] Monocytes/100 WBC (Bld) 8.7 % 2.0 - 10.0 % [facility] Neutrophils (Bld) [#/Vol] 10.69 10*3/uL High [facility] Comment on above: Percent differential counts (%) should be interpreted in the context of the absolute cell counts (cells/uL). Neutrophils/100 WBC (Bld) 74.2 % 40.0 - 80.0 % [facility] Basophils (Bld) [#/Vol] 0.16 x10*3/uL High 0.00-0.10 [facility] Comment on above: Performed By: #### 5 7021-8 #### KELECHI Garcia ([id number]) [facility] ([facility]) [address] [place] [address] Basophils/100 WBC (Bld) 1.1 % Normal 0.0-2.0 [facility] Comment on above: Performed By: #### 5 7021-8 #### KELECHI Garcia ([id number]) [facility] ([facility]) [address] [place] [address] Eosinophils (Bld) [#/Vol] 0.46 x10*3/uL High 0.00-0.40 [facility] Comment on above: Performed By: #### 5 7021-8 #### KELECHI VELEZMOTZER L ([id number]) [facility] ([facility]) [address] [place] [address] 94157 Eosinophils/100 WBC (Bld) 3.2 % Normal 0.0-6.0 [facility] Comment on above: Performed By: #### 5 7021-8 #### KELECHI SCHMOTZER L ([id number]) [facility] ([facility]) [address] [place] [address] 35309 Immature granulocytes (Bld) [#/Vol] 0.07 x10*3/uL Normal 0.00-0.50 [facility] Comment on above: Performed By: #### 5 7021-8 #### KELECHI VELEZMOTZER L ([id number]) [facility] ([facility]) [address] [place] [address] 17341 Immature granulocytes/100 WBC (Bld) 0.5 % Normal 0.0-0.9 [facility] Comment on above: Result Comment: Jannie ture Granulocyte Count (IG) includes promyelocytes, myelocytes and metamyelocytes but does not include bands. Percent differential counts (%) should be interpreted in the context of the absolute cell counts (cells/UL). Performed By: #### 5 7021-8 #### KELECHI VELEZMOTZER L ([id number]) [facility] ([facility]) [address] [place] [address] 50976 Lymphocytes (Bld) [#/Vol] 1.77 x10*3/uL Normal 0.80-3.00 [facility] Comment on above: Performed By: #### 5 7021-8 #### KELECHI VELEZMOTZER L ([id number]) [facility] ([facility]) [address] [place] [address] 49089 Lymphocytes/100 WBC (Bld) 12.3 % Normal 13.0-44.0 [facility] Comment on above: Performed By: #### 5 7021-8 #### KELECHI VELEZMOTZER L ([id number]) [facility] ([facility]) [address] [place] [address] [place] [address] Monocytes (Bld) [#/Vol] 1.25 x10*3/uL High 0.05-0.80 [facility] Comment on above: Performed By: #### 5 7021-8 #### KELECHI Garcia ([id number]) [facility] ([facility]) [address] [place] [address] Monocytes/100 WBC (Bld) 8.7 % Normal 2.0-10.0 [facility] Comment on above: Performed By: #### 5 7021-8 #### KELECHI Garcia ([id number]) [facility] ([facility]) [address] [place] [address] 94116 Neutrophils (Bld) [#/Vol] 10.69 x10*3/uL High 1.60-5.50 [facility] Comment on above: Result Comment: Perc ent differential counts (%) should be interpreted in the context of the absolute cell counts (cells/uL). Performed By: #### 5 7021-8 #### KELECHI Garcia ([id number]) [facility] ([facility]) [address] [place] [address] Neutrophils/100 WBC (Bld) 74.2 % Normal 40.0-80.0 [facility] Comment on above: Performed By: #### 5 7021-8 #### KELECHI Garcia ([id number]) [facility] ([facility]) [address] [place] [address] Basophils (Bld) [#/Vol] 0.18 10*3/uL High [facility] Basophils/100 WBC (Bld) 1.2 % 0.0 - 2.0 % [facility] Eosinophils (Bld) [#/Vol] 0.39 10*3/uL [facility] Eosinophils/100 WBC (Bld) 2.5 % 0.0 - 6.0 % [facility] Erythrocyte distribution width (RBC) [Ratio] 16.3 % High 11.5 - 14.5 % [facility] Hematocrit (Bld) [Volume fraction] 21.9 % Low 36.0 - 46.0 % [facility] Hemoglobin (Bld) [Mass/Vol] 7 g/dL Low 12.0 - 16.0 g/dL [facility] Immature granulocytes (Bld) [#/Vol] 0.09 10*3/uL [facility] Immature granulocytes/100 WBC (Bld) 0.6 % 0.0 - 0.9 % [facility] Comment on above: Immature Granulocyte Count (IG) includes promyelocytes, myelocytes and metamyelocytes but does not include bands. Percent differential counts (%) should be interpreted in the context of the absolute cell counts (cells/UL). Interpretation and review of laboratory results Abnormal [facility] Lymphocytes (Bld) [#/Vol] 1.77 10*3/uL [facility] Lymphocytes/100 WBC (Bld) 11.4 % 13.0 - 44.0 % [facility] MCH (RBC) [Entitic mass] 30.4 pg 26.0 - 34.0 pg [facility] MCHC (RBC) [Mass/Vol] 32 g/dL 32.0 - 36.0 g/dL [facility] MCV (RBC) [Entitic vol] 95 fL 80 - 100 fL [facility] Monocytes (Bld) [#/Vol] 1.34 10*3/uL High [facility] Monocytes/100 WBC (Bld) 8.6 % 2.0 - 10.0 % [facility] Neutrophils (Bld) [#/Vol] 11.75 10*3/uL High [facility] Comment on above: Percent differential counts (%) should be interpreted in the context of the absolute cell counts (cells/uL). Neutrophils/100 WBC (Bld) 75.7 % 40.0 - 80.0 % [facility] Nucleated RBC/100 WBC (Bld) [Ratio] 0 % [facility] Platelets (Bld) [#/Vol] 341 10*3/uL [facility] RBC (Bld) [#/Vol] 2.3 10*6/uL Low [facility] WBC (Bld) [#/Vol] 15.5 10*3/uL High [facility] Basophils (Bld) [#/Vol] 0.18 x10*3/uL High 0.00-0.10 [facility] Comment on above: Performed By: #### 5 7021-8 #### KELECHI Garcia ([id number]) [facility] ([facility]) [id number] [place] [address] 16916 Basophils/100 WBC (Bld) 1.2 % Normal 0.0-2.0 [facility] Comment on above: Performed By: #### 5 7021-8 #### KELECHI Garcia ([id number]) [facility] ([facility]) [address] [place] [address] 62568 Eosinophils (Bld) [#/Vol] 0.39 x10*3/uL Normal 0.00-0.40 [facility] Comment on above: Performed By: #### 5 7021-8 #### KELECHI Garcia ([id number]) [facility] ([facility]) [address] [place] [address] 65461 Eosinophils/100 WBC (Bld) 2.5 % Normal 0.0-6.0 [facility] Comment on above: Performed By: #### 5 7021-8 #### KELECHI Garcia ([id number]) [facility] ([facility]) [address] [place] [address] 90791 Erythrocyte distribution width (RBC) [Ratio] 16.3 % High 11.5-14.5 [facility] Comment on above: Performed By: #### 5 7021-8 #### KELECHI Garcia ([id number]) [facility] ([facility]) [address] [place] [address] 26301 Hematocrit (Bld) [Volume fraction] 21.9 % Low 36.0-46.0 [facility] Comment on above: Performed By: #### 5 7021-8 #### KELECHI Garcia ([id number]) [facility] ([facility]) [address] [place] [address] 84208 Hemoglobin (Bld) [Mass/Vol] 7.0 g/dL Low 12.0-16.0 [facility] Comment on above: Performed By: #### 5 7021-8 #### KELECHI Garcia ([id number]) [facility] ([facility]) [id number] [place] [address] 33605 Immature granulocytes (Bld) [#/Vol] 0.09 x10*3/uL Normal 0.00-0.50 [facility] Comment on above: Performed By: #### 5 7021-8 #### KELECHI Garcia ([id number]) [facility] ([facility]) [id number] [place] [address] 17775 Immature granulocytes/100 WBC (Bld) 0.6 % Normal 0.0-0.9 [facility] Comment on above: Result Comment: Jannie ture Granulocyte Count (IG) includes promyelocytes, myelocytes and metamyelocytes but does not include bands. Percent differential counts (%) should be interpreted in the context of the absolute cell counts (cells/UL). Performed By: #### 5 7021-8 #### KELECHI Garcia ([id number]) [facility] ([facility]) [address] [place] [address] 90372 Lymphocytes (Bld) [#/Vol] 1.77 x10*3/uL Normal 0.80-3.00 [facility] Comment on above: Performed By: #### 5 7021-8 #### KELECHI Garcia ([id number]) [facility] ([facility]) [address] [place] [address] 71622 Lymphocytes/100 WBC (Bld) 11.4 % Normal 13.0-44.0 [facility] Comment on above: Performed By: #### 5 7021-8 #### KELECHI Garcia ([id number]) [facility] ([facility]) [address] [place] [address] 98721 MCH (RBC) [Entitic mass] 30.4 pg Normal 26.0-34.0 [facility] Comment on above: Performed By: #### 5 7021-8 #### KELECHI Garcia ([id number]) [facility] ([facility]) [address] [place] [address] MCHC (RBC) [Mass/Vol] 32.0 g/dL Normal 32.0-36.0 [facility] Comment on above: Performed By: #### 5 7021-8 #### KELECHI Garcia ([id number]) [facility] ([facility]) [address] [place] [address] 55289 MCV (RBC) [Entitic vol] 95 fL Normal 80-100 U [facility] Comment on above: Performed By: #### 5 7021-8 #### KELECHI Garcia ([id number]) [facility] ([facility]) [address] [place] [address] 97112 Monocytes (Bld) [#/Vol] 1.34 x10*3/uL High 0.05-0.80 [facility] Comment on above: Performed By: #### 5 7021-8 #### KELECHI Garcia ([id number]) [facility] ([facility]) [address] [place] [address] 83477 Monocytes/100 WBC (Bld) 8.6 % Normal 2.0-10.0 [facility] Comment on above: Performed By: #### 5 7021-8 #### KELECHI Garcia ([id number]) [facility] ([facility]) [address] [place] [address] 06016 Neutrophils (Bld) [#/Vol] 11.75 x10*3/uL High 1.60-5.50 [facility] Comment on above: Result Comment: Perc ent differential counts (%) should be interpreted in the context of the absolute cell counts (cells/uL). Performed By: #### 5 7021-8 #### KELECHI Garcia ([id number]) [facility] ([facility]) [address] [place] [address] 76777 Neutrophils/100 WBC (Bld) 75.7 % Normal 40.0-80.0 [facility] Comment on above: Performed By: #### 5 7021-8 #### KELECHI Garcia ([id number]) [facility] ([facility]) [address] [place] [address] Nucleated RBC/100 WBC (Bld) [Ratio] 0.0 /100 WBCs Normal 0.0-0.0 [facility] Comment on above: Performed By: #### 5 7021-8 #### KELECHI Garcia ([id number]) [facility] ([facility]) [id number] [place] [address] 58073 Platelets (Bld) [#/Vol] 341 x10*3/uL Normal 150-450 [facility] Comment on above: Performed By: #### 5 7021-8 #### KELECHI Garcia ([id number]) [facility] ([facility]) [address] [place] [address] 99246 RBC (Bld) [#/Vol] 2.30 x10*6/uL Low 4.00-5.20 [facility] Comment on above: Performed By: #### 5 7021-8 #### KELECHI Garcia ([id number]) [facility] ([facility]) [address] [place] [address] 79865 WBC (Bld) [#/Vol] 15.5 x10*3/uL High 4.4-11.3 [facility] Comment on above: Performed By: #### 5 7021-8 #### KELECHI Garcia ([id number]) [facility] ([facility]) [address] [place] [address] 37541 CBC panel Auto (Bld)on 08-31 Erythrocyte distribution width (RBC) [Ratio] 15.9 % High 11.5 - 14.5 % [facility] Hematocrit (Bld) [Volume fraction] 26.1 % Low 36.0 - 46.0 % [facility] Hemoglobin (Bld) [Mass/Vol] 8.2 g/dL Low 12.0 - 16.0 g/dL [facility] Interpretation and review of laboratory results Abnormal [facility] MCH (RBC) [Entitic mass] 30.3 pg 26.0 - 34.0 pg [facility] MCHC (RBC) [Mass/Vol] 31.4 g/dL Low 32.0 - 36.0 g/dL [facility] MCV (RBC) [Entitic vol] 96 fL 80 - 100 fL [facility] Nucleated RBC/100 WBC (Bld) [Ratio] 0 % [facility] Platelets (Bld) [#/Vol] 450 10*3/uL [facility] RBC (Bld) [#/Vol] 2.71 10*6/uL Low [facility] WBC (Bld) [#/Vol] 15.2 10*3/uL High [facility] Erythrocyte distribution width (RBC) [Ratio] 15.9 % High 11.5-14.5 [facility] Comment on above: Performed By: #### 5 7021-8 #### KELECHI Garcia ([id number]) [facility] ([facility]) [address] [place] [address] 39866 Hematocrit (Bld) [Volume fraction] 26.1 % Low 36.0-46.0 [facility] Comment on above: Performed By: #### 5 7021-8 #### KELECHI Garcia ([id number]) [facility] ([facility]) [address] [place] [address] 80493 Hemoglobin (Bld) [Mass/Vol] 8.2 g/dL Low 12.0-16.0 [facility] Comment on above: Performed By: #### 5 7021-8 #### KELECHI Garcia ([id number]) [facility] ([facility]) [address] [place] [address] 69555 MCH (RBC) [Entitic mass] 30.3 pg Normal 26.0-34.0 [facility] Comment on above: Performed By: #### 5 7021-8 #### KELECHI Garcia ([id number]) [facility] ([facility]) [address] [place] [address] 20807 MCHC (RBC) [Mass/Vol] 31.4 g/dL Low 32.0-36.0 [facility] Comment on above: Performed By: #### 5 7021-8 #### KELECHI Garcia ([id number]) [facility] ([facility]) [address] [place] [address] MCV (RBC) [Entitic vol] 96 fL Normal 80-100 [facility] Comment on above: Performed By: #### 5 7021-8 #### KELECHI Garcia ([id number]) [facility] ([facility]) [id number] [place] [address] 77049 Nucleated RBC/100 WBC (Bld) [Ratio] 0.0 /100 WBCs Normal 0.0-0.0 [facility] Comment on above: Performed By: #### 5 7021-8 #### KELECHI Garcia ([id number]) [facility] ([facility]) [id number] [place] [address] 31572 Platelets (Bld) [#/Vol] 450 x10*3/uL Normal 150-450 [facility] Comment on above: Performed By: #### 5 7021-8 #### KELECHI Garcia ([id number]) [facility] ([facility]) [address] [place] [address] 03840 RBC (Bld) [#/Vol] 2.71 x10*6/uL Low 4.00-5.20 [facility] Comment on above: Performed By: #### 5 7021-8 #### KELECHI Garcia ([id number]) [facility] ([facility]) [address] [place] [address] 57668 WBC (Bld) [#/Vol] 15.2 x10*3/uL High 4.4-11.3 [facility] Comment on above: Performed By: #### 5 7021-8 #### KELECHI VELÁZQUEZ L ([id number]) [facility] ([facility]) [id number] [place] [address] 26366 Complete blood count panelon 08-31-2024 Erythrocyte distribution width (RBC) [Ratio] 16.3 % High 11.5-14.5 [facility] Comment on above: Performed By: #### 5 8410-2 #### KELECHI VELÁZQUEZ L ([id number]) [facility]) [address] [place] [address] Performed By: #### 5 7021-8 #### KELECHI VELÁZQUEZ L ([id number]) [facility] [facility] ([facility]) [address] [place] [address] Hematocrit (Bld) [Volume fraction] 22.2 % Low 36.0-46.0 [facility] Comment on above: Performed By: #### 5 8410-2 #### KELECHI VELÁZQUEZ L ([id number]) [facility]) [address] [place] [address] Performed By: #### 5 7021-8 #### KELECHI VELEZMODEBBI L ([id number]) [facility] ([facility]) [address] [place] [address] Hemoglobin (Bld) [Mass/Vol] 7.2 g/dL Low 12.0-16.0 [facility] Comment on above: Performed By: #### 5 8410-2 #### KELECHI VELÁZQUEZ L ([id number]) [facility]) [address] [place] [address] Performed By: #### 5 7021-8 #### KELECHI VELÁZQUEZ L ([id number]) [facility] ([facility]) [address] [place] [address] MCH (RBC) [Entitic mass] 30.8 pg Normal 26.0-34.0 [facility] Comment on above: Performed By: #### 5 8410-2 #### KELECHI VELÁZQUEZ L ([id number]) [facility] ([facility]) [address] [place], [place] [id number] Performed By: #### 5 7021-8 #### KELECHI VELEZMOTZER L ([id number]) [facility] ([facility]) [address] [place], [place] [id number] MCHC (RBC) [Mass/Vol] 32.4 g/dL Normal 32.0-36.0 [facility] Comment on above: Performed By: #### 5 8410-2 #### KELECHI VELÁZQUEZ L ([id number]) [facility] ([facility]) [address] [place] [address] Performed By: #### 5 7021-8 #### KELECHI VELÁZQUEZ L ([id number]) [facility] ([facility]) [address] [place] [address] MCV (RBC) [Entitic vol] 95 fL Normal 80-100 U [facility] Comment on above: Performed By: #### 5 8410-2 #### KELECHI VELÁZQUEZ L ([id number]) [facility] ([facility]) [address] [place] [address] Performed By: #### 5 7021-8 #### KELECHI VELÁZQUEZ L ([id number]) [facility] ([facility]) [address] [place] [address] Nucleated RBC/100 WBC (Bld) [Ratio] 0.0 /100 WBCs Normal 0.0-0.0 [facility] Comment on above: Performed By: #### 5 8410-2 #### KELECHI Garcia ([id number]) [facility] ([facility]) [address] [place] [address] Performed By: #### 5 7021-8 #### KELECHI VELÁZQUEZ L ([id number]) [facility] ([facility]) [address] [place] [address] Platelets (Bld) [#/Vol] 332 x10*3/uL Normal 150-450 [facility] Comment on above: Performed By: #### 5 8410-2 #### KELECHI VELÁZQUEZ L ([id number]) [facility] ([facility]) [address] [place], [place] [address] Performed By: #### 5 7021-8 #### KELECHI VELEZMODEBBI L ([id number]) [facility] ([facility]) [address] [place] [address] RBC (Bld) [#/Vol] 2.34 x10*6/uL Low 4.00-5.20 [facility] Comment on above: Performed By: #### 5 8410-2 #### KELECHI Garcia ([id number]) [facility] ([facility]) [address] [place] [address] Performed By: #### 5 7021-8 #### KELECHI Garcia ([id number]) [facility] ([facility]) [address] [place] [address] WBC (Bld) [#/Vol] 14.4 x10*3/uL High 4.4-11.3 [facility] Comment on above: Performed By: #### 5 8410-2 #### KELECHI Garcia ([id number]) [facility] ([facility]) [address] [place] [address] Performed By: #### 5 7021-8 #### KELECHI Garcia ([id number]) [facility] ([facility]) [address] [place] [address] Comprehensive metabolic 2000 panelon 08-31-2024 Albumin BCP dye [Mass/Vol] 3.2 g/dL Low 3.4 - 5.0 g/dL [facility] ALP [Catalytic activity/Vol] 89 U/L 33 - 136 U/L [facility] ALT With P-5'-P [Catalytic activity/Vol] 18 U/L 7 - 45 U/L [facility] Comment on above: Patients treated wit h Sulfasalazine may generate falsely decreased results for ALT. Anion gap [Moles/Vol] 19 mmol/L [facility] AST With P-5'-P [Catalytic activity/Vol] 43 U/L High 9 - 39 U/L [facility] Bilirubin [Mass/Vol] 0.7 mg/dL 0.0 - 1 .2 mg/dL [facility] Calcium [Mass/Vol] 7.8 mg/dL Low 8.6 - 10. 6 mg/dL [facility] Chloride [Moles/Vol] 88 mmol/L Low 98 - 10 7 mmol/L [facility] CO2 [Moles/Vol] 29 mmol/L 21 - 32 mmol/L [facility] Creatinine [Mass/Vol] 7.69 mg/dL High 0.50 - 1.05 mg/dL [facility] GFR/1.73 sq M.predicted among non-blacks MDRD (S/P/Bld) [Vol rate/Area] 5 mL/min/{1.73_m2} Low - PINF [facility] Comment on above: Calculations of katy mated GFR are performed using the 2020 CKD-EPI Study Refit equation without the race variable for the IDMS-Traceable creatinine methods. https://jasn.asnjournals.org/content/early/ASN.2020 515058 Glucose [Mass/Vol] 86 mg/dL 74 - 99 mg/dL [facility] Potassium [Moles/Vol] 4.1 mmol/L 3.5 - 5.3 mmol/L [facility] Protein [Mass/Vol] 5.8 g/dL Low 6.4 - 8.2 g/dL [facility] Sodium [Moles/Vol] 132 mmol/L Low 136 - 145 mmol/L [facility] Urea nitrogen [Mass/Vol] 47 mg/dL High 6 - 23 mg/dL [facility] Albumin BCP dye [Mass/Vol] 3.2 g/dL Low 3.4-5.0 [facility] Comment on above: Performed By: #### 2 4323-8 #### KELECHI Garcia ([id number]) [facility] ([facility]) [address] [place] [address] ALP [Catalytic activity/Vol] 89 U/L Normal 33-136 [facility] Comment on above: Performed By: #### 2 4323-8 #### KELECHI Garcia ([id number]) [facility] ([facility]) [address] [place] [address] ALT With P-5'-P [Catalytic activity/Vol] 18 U/L Normal 7-45 [facility] Comment on above: Result Comment: Patsy ents treated with Sulfasalazine may generate falsely decreased results for ALT. Performed By: #### 2 4323-8 #### KELECHI Garcia ([id number]) [facility] ([facility]) [address] [place] [address] Anion gap [Moles/Vol] 19 mmol/L Normal [facility] Comment on above: Performed By: #### 2 4323-8 #### KELECHI Garcia ([id number]) [facility] ([facility]) [address] [place] [address] AST With P-5'-P [Catalytic activity/Vol] 43 U/L High 9-39 [facility] Comment on above: Performed By: #### 2 4323-8 #### KELECHI Garcia ([id number]) [facility] ([facility]) [address] [place] [address] Bilirubin [Mass/Vol] 0.7 mg/dL Normal 0.0-1.2 [facility] Comment on above: Performed By: #### 2 4323-8 #### KELECHI Garcia ([id number]) [facility] ([facility]) [address] [place] [address] Calcium [Mass/Vol] 7.8 mg/dL Low 8.6-10.6 [facility] Comment on above: Performed By: #### 2 4323-8 #### KELECHI Garcia ([id number]) [facility] ([facility]) [address] [place] [address] Chloride [Moles/Vol] 88 mmol/L Low 98-107 [facility] Comment on above: Performed By: #### 2 4323-8 #### KELECHI Garcia ([id number]) [facility] ([facility]) [address] [place] [address]2013 CO2 [Moles/Vol] 29 mmol/L Normal 21-32 [facility] Comment on above: Performed By: #### 2 4323-8 #### KELECHI Garcia ([id number]) [facility] ([facility]) [address] [place] [address] Creatinine [Mass/Vol] 7.69 mg/dL High 0.50-1.05 [facility] Comment on above: Performed By: #### 2 4323-8 #### KELECHI Garcia ([id number]) [facility] ([facility]) [address] [place] [address]203 Glomerular filtration rate/1.73 sq M.predicted 5 mL/min/1.73m*2 Low >60 [facility] Comment on above: Result Comment: Calc ulations of estimated GFR are performed using the 2020 CKD-EPI Study Refit equation without the race variable for the IDMS-Traceable creatinine methods. https://jasn.asnjournals.org/content/early/ASN.2020 987667 Performed By: #### 2 4323-8 #### KELECHI Garcia ([id number]) [facility] ([facility]) [address] [place] [address] Glucose [Mass/Vol] 86 mg/dL Normal 74-99 [facility] Comment on above: Performed By: #### 2 4323-8 #### KELECHI Garcia ([id number]) [facility] ([facility]) [address] [place] [address] Potassium [Moles/Vol] 4.1 mmol/L Normal 3.5-5.3 [facility] Comment on above: Performed By: #### 2 4323-8 #### KELECHI Garcia ([id number]) [facility] ([facility]) [address] [place] [address]60 Protein [Mass/Vol] 5.8 g/dL Low 6.4-8.2 [facility] Comment on above: Performed By: #### 2 4323-8 #### KELECHI VELÁZQUEZ L ([id number]) [facility] ([facility]) [address] [place] [address] Sodium [Moles/Vol] 132 mmol/L Low 136-145 [facility] Comment on above: Performed By: #### 2 4323-8 #### KELECHI Garcia ([id number]) [facility] ([facility]) [address] [place] [address] Urea nitrogen [Mass/Vol] 47 mg/dL High 6-23 [facility] Comment on above: Performed By: #### 2 4323-8 #### KELECHI Garcia ([id number]) [facility] ([facility]) [address] [place] [address] 39272 HBV surface Ab Qn (S)on 08-04 Interpretation and review of laboratory results Abnormal [facility] HBV surface Ag IA Qlon 08-31 Interpretation and review of laboratory results Normal [facility] Hepatitis B surface antibody on 08-31-2024 HBV surface Ab Qn (S) High NINF [facility] Comment on above: Interpretive Criteri a: <10 mIU/mL Nonreactive >=10 mIU/mL Reactive Biotin interference may cause falsely decreased results. Patients taking a Biotin dose of up to 5 mg/day should refrain from taking Biotin for 24 hours before sample collection. Providers may contact their local laboratory for further information. Hepatitis B surface antigeno n 08-31-2024 HBV surface Ag IA Ql Non-Reactive Nonreactive U [facility] Comment on above: Biotin interference may cause falsely decreased results. Patients taking a Biotin dose of up to 5 mg/day should refrain from taking Biotin for 24 hours before sample collection. Providers may contact their local laboratory for further information. Hepatitis B virus surface Ab on 08-31-2024 HBV surface Ab Qn (S) >1000.0 High <10.0 [facility] Comment on above: Result Comment: Inte rpretive Criteria: <10 mIU/mL Nonreactive >=10 mIU/mL Reactive Biotin interference may cause falsely decreased results. Patients taking a Biotin dose of up to 5 mg/day should refrain from taking Biotin for 24 hours before sample collection. Providers may contact their local laboratory for further information. Performed By: #### 5 7021-8 #### KELECHI Garcia ([id number]) [facility] ([facility]) [address] [place] [address] Hepatitis B virus surface Ag on 08-31-2024 HBV surface Ag IA Ql Non-Reactive Normal Nonreactive U [facility] Comment on above: Result Comment: Biot in interference may cause falsely decreased results. Patients taking a Biotin dose of up to 5 mg/day should refrain from taking Biotin for 24 hours before sample collection. Providers may contact their local laboratory for further information. Performed By: #### 5 7021-8 #### KELECHI Garcia ([id number]) [facility] ([facility]) [address] [place] [address] Iron and Iron binding capaci ty panelon 08-31-2024 Iron [Mass/Vol] 29 ug/dL Low 35 - 150 ug/dL [facility] Iron binding capacity [Mass/Vol] 139 ug/dL Low 240 - 445 ug/dL [facility] Iron binding capacity.unsaturated [Mass/Vol] 110 ug/dL 110 - 370 ug/dL [facility] Iron saturation [Mass fraction] 21 % Low 25 - 45 % [facility] Iron [Mass/Vol] 29 ug/dL Low 35-150 [facility] Comment on above: Performed By: #### 5 0190-8 #### KELECHI Garcia ([id number]) [facility] ([facility]) [address] [place] [address] Iron binding capacity [Mass/Vol] 139 ug/dL Low 240-445 [facility] Comment on above: Performed By: #### 5 0190-8 #### KELECHI Garcia ([id number]) [facility] ([facility]) [address] [place] [address] Iron binding capacity.unsaturated [Mass/Vol] 110 ug/dL Normal 110-370 [facility] Comment on above: Performed By: #### 5 0190-8 #### KELECHI Garcia ([id number]) [facility] ([facility]) [address] [place] [address] Iron saturation [Mass fraction] 21 % Low 25-45 [facility] Comment on above: Performed By: #### 5 0190-8 #### KELECHI Garcia ([id number]) [facility] ([facility]) [address] [place] [address] Laboratory - Hematology and Cell countson 08-31-2024 Erythrocyte distribution width (RBC) [Ratio] 16.3 % High 11.5 - 14.5 % [facility] Hematocrit (Bld) [Volume fraction] 22.2 % Low 36.0 - 46.0 % [facility] Hemoglobin (Bld) [Mass/Vol] 7.2 g/dL Low 12.0 - 16.0 g/dL [facility] MCH (RBC) [Entitic mass] 30.8 pg 26.0 - 34.0 pg [facility] MCHC (RBC) [Mass/Vol] 32.4 g/dL 32.0 - 36.0 g/dL [facility] MCV (RBC) [Entitic vol] 95 fL 80 - 100 fL [facility] Nucleated RBC/100 WBC (Bld) [Ratio] 0 % [facility] Platelets (Bld) [#/Vol] 332 10*3/uL [facility] RBC (Bld) [#/Vol] 2.34 10*6/uL Low [facility] WBC (Bld) [#/Vol] 14.4 10*3/uL High [facility] Magnesiumon 08-31-2024 Magnesium [Mass/Vol] 2.04 mg/dL 1.60 - 2.40 mg/dL [facility] Magnesium [Mass/Vol] 2.04 mg/dL Normal 1.60-2.40 [facility] Comment on above: Performed By: #### 1 9123-9 #### KELECHI Garcia ([id number]) [facility] ([facility]) [address] [place] [address] Magnesium [Mass/Vol]on 08-31 Interpretation and review of laboratory results Normal [facility] No Panel Informationon 08-31 Interpretation and review of laboratory results Abnormal [facility] Interpretation and review of laboratory results Abnormal [facility] Interpretation and review of laboratory results Abnormal [facility] PT and aPTT panel Coag (PPP) on 08-31-2024 aPTT Coag (PPP) [Time] 25 s Low Un [facility] INR Coag (PPP) [Relative time] 1 {INR} 0.9 - 1.1 [facility] Interpretation and review of laboratory results Abnormal [facility] PT Coag (PPP) [Time] 11.4 s [facility] The APTT is no longe r used for monitoring Unfractionated Heparin Therapy. For monitoring Heparin Therapy, use the Heparin Assay. [facility] aPTT Coag (PPP) [Time] 25 s Low 26-36 Un [facility] Comment on above: Order Comment: The A PTT is no longer used for monitoring Unfractionated Heparin Therapy. For monitoring Heparin Therapy, use the Heparin Assay. Performed By: #### 3 4529-8 #### KELECHI Garcia ([id number]) [facility] ([facility]) [address] [place] [address]262 INR Coag (PPP) [Relative time] 1.0 Normal 0.9-1.1 [facility] Comment on above: Order Comment: The A PTT is no longer used for monitoring Unfractionated Heparin Therapy. For monitoring Heparin Therapy, use the Heparin Assay. Performed By: #### 3 4529-8 #### KELECHI Garcia ([id number]) [facility] ([facility]) [address] [place] [address] PT Coag (PPP) [Time] 11.4 s Normal 9.8-12.4 [facility] Comment on above: Order Comment: The A PTT is no longer used for monitoring Unfractionated Heparin Therapy. For monitoring Heparin Therapy, use the Heparin Assay. Performed By: #### 3 4529-8 #### KELECHI Garcia ([id number]) [facility] ([facility]) [address] [place] [address] 54968 Phosphateon 08-31-2024 Phosphate [Mass/Vol] 7.0 mg/dL High 2.5-4.9 [facility] Comment on above: Performed By: #### 2 777-1 #### KELECHI Garcia ([id number]) [facility] ([facility]) [address] [place] [address] 68138 Phosphate [Mass/Vol]on 08-31 Interpretation and review of laboratory results Abnormal [facility] Phosphoruson 08-31-2024 Phosphate [Mass/Vol] 7 mg/dL High 2.5 - 4 .9 mg/dL [facility] Vancomycinon 08-31-2024 Vancomycin [Mass/Vol] 35.9 ug/mL High 5.0 - 20.0 ug/mL [facility] Vancomycin [Mass/Vol] 35.9 ug/mL High 5.0-20.0 [facility] Comment on above: Order Comment: ADD O [...] By: #### 5 7021-8 #### KELECHI Garcia ([id number]) [facility] ([facility]) [address] [place] [address]161 Vancomycin [Mass/Vol]on 08-04 Vancomycin levels can be [...] 30.0-40.0 ug/mL Trough (all ages): 10.0-20.0 ug/mL [facility] US RLE Soft Tissue OR Joint [...] ultrasound examination. Report Dictated on Authenticated by: [place] On: 08/30/2024 10:40 Read by: HONORIO GRANDE MD, MD Date: 08/30/2024 10:40 [facility] CTA RT Lower Extremity w/wo contraston [...] ROBSON GENAO MD, MD Date: 08/30/2024 07:31 [facility] Comment on above: Order Comment: TRAUM A Please call CT department to schedule 7319 Leukodepleted Red Cells Rele [facility] 08-29-2024 Product Code E0336 [facility] Comment on above: Performed By: #### R LRC ####[place] [address] Rel By [facility] Comment on above: Performed By: #### R LRC ####[place] [address] Rel Date 08/29/2024 [facility] Comment on above: Performed By: #### R LRC ####[facility] [place], [place] [id number] Rel Time 1545 [facility] Comment on above: Performed By: #### R LRC ####[facility] [place] [address] Rel To MR [facility] Comment on above: Performed By: #### R LRC ####[facility] [place], [place] [id number] Unit [address] [id number] [phone] [facility] Comment on above: Performed By: #### R LRC ####[facility] [place] [address] CT RT Lower Extremity wo con traston [...] RONALD RICE MD, MD Date: 08/27/2024 03:58 [facility] Comment on above: Order Comment: witho ut Contrast (No Oral or IV contrast) - look for abscess, right thigh Leukodepleted Red Cells Rele minerva 08-20-2024 Product Code E0336 [facility] Comment on above: Performed By: #### R LRC ####[facility] [place] [address] Rel By SAD [facility] Comment on above: Performed By: #### R LRC ####[facility] [place] [address] Rel Date 08/20/24 [facility] Comment on above: Performed By: #### R LRC ####[place] [address] Rel Time 09:30 [facility] Comment on above: Performed By: #### R LRC ####[place] [address] Rel To CAT [facility] Comment on above: Performed By: #### R LRC ####[place] [address] [id number] [phone] [facility] Comment on above: Performed By: #### R LRC ####[place] [address] XR Chest 1 view-Mobileon XR Chest 1 view-Mobile CHEST CPT 33101 - RADIOLOGIC EXAMINATION, CHEST; SINGLE VIEW COMPARISON: [...] CARLY GIBSON MD, MD Date: 08/18/2024 09:47 [facility] Comment on above: Order Comment: TRAUM [...] JORGITO LA MD, MD Date: 08/17/2024 19:11 [facility] XR Chest 1 view-Mobile Chest radiograph Comparison: August 16. Findings: Endotracheal tube above liane. NG tube below diaphragm. No pneumothorax. Mild vascular congestion. Persistent subtle bilateral pulmonary opacities overall improving. No significant effusion. Heart size stable. Impression: No pneumothorax Report electronically signed by: Jamie Hays MD on August 17, 08:04 PM EDT Read by: JAMIE HAYS DO, MD Date: 08/17/2024 20:04 [facility] Comment on above: Order Comment: Paul row 0600 CK Totalon 08-16-2024 CK [Catalytic activity/Vol] 20 U/L Low 26-[address] [facility] Comment on above: Performed By: #### C K ####[facility] [place] [address] US Aspiration Absc/Hemat/Bul /Cyston 08-16-2024 US Aspiration Absc/Hemat/Bul/Cyst ULTRASOUND GUIDED ABSCESS ASPIRATION: CLINICAL INDICATION: Right thigh collection. TECHNIQUE: Following discussion with the patient regarding risks, benefits and alternatives along with timeout to document the patient's name, site and nature of the procedure, the skin was sterilely prepared and local anesthesia was applied. Under real-time ultrasound guidance, a 5 Israeli Yueh needle was advanced into the collection in the right anterolateral thigh. Aspiration was performed with the yield of 10mL of purulent fluid. The specimen was sent for pathologic evaluation, including culture and sensitivity. The patient tolerated procedure well. IMPRESSION: Successful aspiration of right anterolateral thigh collection yielding 10 mL purulent fluid. Report Dictated on Authenticated by: Frnaco Majano On: 08/16/2024 16:13 Read by: FRANCO MAJANO MD, MD Date: 08/16/2024 16:13 [facility] US Guid Ndl Plcmt W/Imageon 08-16-2024 US Guid Ndl Plcmt W/Image ULTRASOUND GUIDED ABSCESS ASPIRATION: CLINICAL INDICATION: Right thigh collection. TECHNIQUE: Following discussion with the patient regarding risks, benefits and alternatives along with timeout to document the patient's name, site and nature of the procedure, the skin was sterilely prepared and local anesthesia was applied. Under real-time ultrasound guidance, a 5 Israeli Yueh needle was advanced into the collection [...] FRANCO MAJANO MD, MD Date: 08/16/2024 16:13 [facility] XR Abdomen single AP view-KU Bon [...] CARLY GIBSON MD, MD Date: 08/16/2024 07:45 [facility] XR Chest 1 view-Mobileon XR Chest 1 view-Mobile CHEST CPT 78751 - RADIOLOGIC EXAMINATION, CHEST; SINGLE VIEW COMPARISON: [...] GIBSON MD, MD Date: 08/16/2024 07:[address] [facility] XR Hip Right 2-3 viewson XR Hip Right 2-3 views 2 VIEWS OF [facility] HIP COMPARISON: No comparison exams available at [...] JUNI WOOD MD, MD Date: 08/16/2024 12:38 [facility] CT Brain wo contraston 08-15 CT [...] MATILDE TURNER DO, MD Date: 08/15/2024 05:16 [facility] Comment on above: Order Comment: CONTR [...] DHIRAJ LAGOS DO, MD Date: 08/15/2024 05:49 [facility] XR Chest 1 view-Mobileon XR Chest 1 view-Mobile CHEST CPT 63173 - RADIOLOGIC EXAMINATION, CHEST; SINGLE VIEW COMPARISON: [...] CARLY GIBSON MD, MD Date: 08/15/2024 19:33 [facility] XR Chest 1 view-Mobile Chest. Single [...] DHIRAJ LAGOS DO, MD Date: 08/15/2024 05:50 [facility] CT Brain wo contraston 08-14 CT [...] KEV SANTANA MD, MD Date: 08/14/2024 20:14 [facility] Comment on above: Order Comment: TRAUM [...] KEV SANTANA MD, MD Date: 08/14/2024 21:01 [facility] Comment on above: Order Comment: TRAUM A Please call CT department to schedule [phone] CTA Head and Neck w/wo contr jenna 08-14-2024 CTA Head and Neck w/wo contrast CTA OF THE NECK (CAROTIDS) (CPT 18557) TECHNICAL: CT angiography of the neck/carotid vasculature [...] bilateral pulmonary opacities CTA OF THE HEAD/BRAIN ([place]) (CPT 04872) TECHNICAL: CT angiography of the neck/carotid vasculature [...] appear normal. POSTERIOR CEREBRAL ARTERY CIRCULATION: Visualized APICULTURIST segments appear normal. VERTEBROBASILAR CIRCULATION stenosis or [...] KEV SANTANA MD, MD Date: 08/14/2024 20:25 [facility] Comment on above: Order Comment: CONTR AST PER RADIOLOGIST DISCRETION Please call CT department to schedule [phone] XR Chest 1 view-Mobileon XR Chest 1 view-Mobile CHEST COMPARISON: No comparison exams available at the time of dictation. FINDINGS: CARDIOVASCULAR: Cardiomediastinal silhouette is not enlarged. LUNGS: Diffuse opacities. Edema versus infiltrate. OSSEOUS STRUCTURES: Bony structures are intact. SOFT TISSUES: No foreign bodies. TUBES/LINES/IMPLANTABL E DEVICES: Endotracheal tube 3 cm by the liane IMPRESSION: Diffuse opacities. Report electronically signed by: eKv Santana MD on August 14, 08:19 PM EDT Read by: KEV SANTANA MD, MD Date: 08/14/2024 20:19 [facility] Basic metabolic 1998 panelon 07-17-2024 Anion gap [Moles/Vol] 21 mmol/L High 3 - 13 mmol/L [facility] [employer] Calcium [Mass/Vol] 8.5 mg/dL Low 8.8 - 10. 0 mg/dL [facility] [employer] Chloride [Moles/Vol] 96 mmol/L Low 98 - 10 7 mmol/L [facility] [employer] CO2 [Moles/Vol] 16 mmol/L Low 23 - 31 mmol/L [facility] Creatinine [Mass/Vol] 9.04 mg/dL High 0.57 - 1.11 mg/dL [facility] GFR/1.73 sq M.predicted (S/P/Bld) [Vol rate/Area] 4.2 mL/min Low - PINF [facility] Comment on above: Calculation based on the Chronic Kidney Disease Epidemiology Collaboration (CKD-EPI) equation refit without adjustment for race Glucose [Mass/Vol] 92 mg/dL 82 - 115 mg/dL [facility] Interpretation and review of laboratory results Abnormal [facility] Potassium [Moles/Vol] 5.6 mmol/L High 3.5 - 5.1 mmol/L [facility] Comment on above: Plasma potassium bhaskar ues may be up to 0.5 mmol/L lower than serum values. Sodium [Moles/Vol] 133 mmol/L Low 136 - 145 mmol/L [facility] [employer] Urea nitrogen [Mass/Vol] 84 mg/dL High 9 - 23 mg/dL [facility] CBC W Auto Differential pane l (Bld)on 07-17-2024 Basophils (Bld) [#/Vol] 0 10*3/uL 0.0 - 0.2 10*3/uL [facility] Basophils/100 WBC (Bld) 0.1 % 0.0 - 2.0 % [facility] Eosinophils (Bld) [#/Vol] 0 10*3/uL 0.0 - 0.5 10*3/uL [facility] Eosinophils/100 WBC (Bld) 0.1 % 0.0 - 6.0 % [facility] Erythrocyte distribution width (RBC) [Ratio] 16.3 % High 11.5 - 15.0 % [facility] Hematocrit (Bld) [Volume fraction] 34.9 % Low 35.0 - 47.0 % [facility] Hemoglobin (Bld) [Mass/Vol] 11.5 g/dL Low 11.7 - 16.0 g/dL [facility] Immature granulocytes (Bld) [#/Vol] 0.1 10*3/uL High NINF - 0.1 10*3/uL [facility] Immature granulocytes/100 WBC (Bld) 0.7 % 0.0 - 2.0 % [facility] Interpretation and review of laboratory results Abnormal [facility] Lymphocytes (Bld) [#/Vol] 0.9 10*3/uL Low 1.0 - 4.3 10*3/uL [facility] Lymphocytes/100 WBC (Bld) 12.2 % Low 15.0 - 45.0 % [facility] MCH (RBC) [Entitic mass] 31.8 pg 26.0 - 34.0 pg [facility] MCHC (RBC) [Mass/Vol] 33 % 30.5 - 36.0 % [facility] MCV (RBC) [Entitic vol] 96.4 fL 77.0 - 99.0 fL [facility] Monocytes (Bld) [#/Vol] 0.2 10*3/uL 0.0 - 0.9 10*3/uL [facility] Monocytes/100 WBC (Bld) 3.2 % Low 5.0 - 13.0 % [facility] Neutrophils (Bld) [#/Vol] 6.2 10*3/uL 1.8 - 7.5 10*3/uL [facility] Neutrophils/100 WBC (Bld) 83.7 % High 38.0 - 82.0 % [facility] Nucleated RBC/100 WBC (Bld) [Ratio] 0 % [facility] Platelet mean volume (Bld) [Entitic vol] 11.3 fL 9.0 - 12.7 fL [facility] Platelets (Bld) [#/Vol] 325 10*3/uL 140 - 440 10*3/uL [facility] RBC (Bld) [#/Vol] 3.62 10*6/uL Low 3.80 - 5.2 0 10*6/uL [facility] WBC (Bld) [#/Vol] 7.4 10*3/uL 3.6 - 10.7 10*3/uL [facility] Laboratory - Chemistry and C hemistry - challengeon 07-17-2024 Magnesium [Mass/Vol] 2.3 mg/dL 1.6 - 2 .6 mg/dL [facility] Magnesium [Mass/Vol]on 07-17 Interpretation and review of laboratory results Normal [facility] Higher values can be expected in females during menses. [facility] No Panel Informationon 07-17 2h Troponin HS (Serial 2nd Troponin) 82 ng/L High NINF - 14 ng/L [facility] Interpretation and review of laboratory results Abnormal [facility] Sinus rhythm Consider left ventricular hypertrophy Electronically Signed On 07-17-2024 20:17:37 EDT by Bryant Jameson CV Bryant Rooney MD - 07/17/2024 IMPRESSION: Sinus rhythm Consider left ventricular hypertrophy Electronically Signed On 07-17-2024 20:17:37 EDT by Bryant Jameson [facility] 2h Troponin HS (Serial 2nd Troponin) 33 ng/L High NINF - 14 ng/L [facility] Interpretation and review of laboratory results Abnormal [facility] No Panel InformationOrdered By: Bryant Jameson on 07-17-2024 P [place] 99 degrees [facility] Work Phone: [place] Interval 119 ms [employer] Work Phone: QRS [place] 42 degrees [employer] Work Phone: QRSD Interval 82 ms [employer] Work Phone: QT Interval 391 ms [employer] Work Phone: [phone] [employer]TC Interval 452 ms [employer] Phone: T Wave [place] 67 degrees [employer] Work Phone: [phone] [employer] Work Phone: Vital signsOrdered By: Bryant Jameson on 07-17-2024 Heart rate 80 /min bpm [employer] Phone: XR Chest Single viewon 07-17 No acute cardiopulmonary disease. Report Dictated on Electronically Signed By: Veronica Monsivais MD Electronically Signed Date/Time: 07/17/2024 3:00 PM EDT [facility] RAD[facility]Y [facility] Patient Name: APOORVA GONZALEZ : [...] changes of the thoracic spine are noted. [facility] Veronica Monsivais MD - 07/17/2024 Patient [...] Electronically Signed Date/Time: 07/17/2024 3:00 PM EDT [facility] Radiology Study observation (narrative) [facility] [employer] XR Chest Single viewOrdered By: Veronica Monsivais on 07-17-2024 [facility] [employer] CBC W Auto Differential pane l (Bld)on 06-29-2024 Basophils (Bld) [#/Vol] 0.1 10*3/uL 0.0 - 0.2 10*3/uL [facility] [employer] Basophils/100 WBC (Bld) 0.9 % 0.0 - 2.0 % [facility] [employer] Eosinophils (Bld) [#/Vol] 0.2 10*3/uL 0.0 - 0.5 10*3/uL [facility] [employer] Eosinophils/100 WBC (Bld) 1.6 % 0.0 - 6.0 % [facility] [employer] Erythrocyte distribution width (RBC) [Ratio] 16.1 % High 11.5 - 15.0 % [facility] [employer] Hematocrit (Bld) [Volume fraction] 24 % Low 35.0 - 47.0 % [facility] Hemoglobin (Bld) [Mass/Vol] 8 g/dL Low 11.7 - 16.0 g/dL [facility] [employer] Immature granulocytes (Bld) [#/Vol] 0 10*3/uL NINF - 0.1 10*3/uL [facility] [employer] Immature granulocytes/100 WBC (Bld) 0.4 % 0.0 - 2.0 % [facility] Interpretation and review of laboratory results Abnormal [facility] [employer] Lymphocytes (Bld) [#/Vol] 1.6 10*3/uL 1.0 - 4.3 10*3/uL [facility] [employer] Lymphocytes/100 WBC (Bld) 16 % 15.0 - 45.0 % [facility] MCH (RBC) [Entitic mass] 31.5 pg 26.0 - 34.0 pg [facility] MCHC (RBC) [Mass/Vol] 33.3 % 30.5 - 36.0 % [employer] MCV (RBC) [Entitic vol] 94.5 fL 77.0 - 99.0 fL [facility] [employer] Monocytes (Bld) [#/Vol] 1 10*3/uL High 0.0 - 0.9 10*3/uL [facility] [employer] Monocytes/100 WBC (Bld) 9.5 % 5.0 - 13.0 % [facility] [employer] Neutrophils (Bld) [#/Vol] 7.3 10*3/uL 1.8 - 7.5 10*3/uL [facility] Neutrophils/100 WBC (Bld) 71.6 % 38.0 - 82.0 % [employer] Nucleated RBC/100 WBC (Bld) [Ratio] 0 % [employer] Platelet mean volume (Bld) [Entitic vol] 10.4 fL 9.0 - 12.7 fL [facility] [employer] Platelets (Bld) [#/Vol] 370 10*3/uL 140 - 440 10*3/uL [facility] [employer] RBC (Bld) [#/Vol] 2.54 10*6/uL Low 3.80 - 5.2 0 10*6/uL [facility] [employer] WBC (Bld) [#/Vol] 10.2 10*3/uL 3.6 - 10.7 10*3/uL [facility] CT Head WO contraston 2024 No acute intracranial abnormalities or significant change from the prior study. Generalized brain parenchymal volume loss and moderate chronic small vessel ischemic changes bilaterally. Report Dictated on Electronically Signed By: Andrea Gonzales MD Electronically Signed Date/Time: 06/29/2024 7:49 AM [facility] [employer] SYSTEM Patient Name: APOORVA GONZALEZ : 1950 [...] paranasal sinuses and orbits are normal. [facility] Andrea Gonzales M D - 06/29/2024 Patient Name: [facility] 1950 [id number] Exam Date/Time: 06/29/2024 07:26 Procedure: CT HEAD [...] Electronically Signed Date/Time: 06/29/2024 7:49 AM EDT [facility] Radiology Study observation (narrative) [facility] CT Head WO contrastOrdered B y: Andrea Gonzales on 06-29-2024 [facility] [employer] Work Phone: Comprehensive metabolic 1998 panelon 06-29-2024 Albumin [Mass/Vol] 3.4 g/dL 3.4 - 4.8 g/dL [facility] [employer] ALP [Catalytic activity/Vol] 93 U/L 40 - 150 U/L [facility] ALT [Catalytic activity/Vol] 8 U/L NINF - 30 U/L [facility] Anion gap [Moles/Vol] 20 mmol/L High 3 - 13 mmol/L [facility] AST [Catalytic activity/Vol] 23 U/L NINF - 34 U/L [facility] Bilirubin [Mass/Vol] 0.6 mg/dL NINF - 1.2 mg/dL [facility] Calcium [Mass/Vol] 8.4 mg/dL Low 8.8 - 10. 0 mg/dL [facility] Chloride [Moles/Vol] 93 mmol/L Low 98 - 10 7 mmol/L [facility] CO2 [Moles/Vol] 24 mmol/L 23 - 31 mmol/L [facility] Creatinine [Mass/Vol] 11.11 mg/dL High 0.57 - 1.11 mg/dL [facility] GFR/1.73 sq M.predicted (S/P/Bld) [Vol rate/Area] 3.3 mL/min Low - PINF [facility] Comment on above: Calculation based on the Chronic Kidney Disease Epidemiology Collaboration (CKD-EPI) equation refit without adjustment for race Glucose [Mass/Vol] 89 mg/dL 82 - 115 mg/dL [facility] Potassium [Moles/Vol] 6 mmol/L High 3.5 - 5.1 mmol/L [facility] Comment on above: Plasma potassium bhaskar ues may be up to 0.5 mmol/L lower than serum values. Protein [Mass/Vol] 7.1 g/dL 6.4 - 8.3 g/dL [facility] Sodium [Moles/Vol] 137 mmol/L 136 - 145 mmol/L [facility] Urea nitrogen [Mass/Vol] 96 mg/dL High 9 - 23 mg/dL [facility] Free T4 [Mass/Vol]on 025 Free T4 Dialysis [Mass/Vol] 1.4 ng/dL 0.70 - 1.48 ng/dL [facility] Laboratory - Chemistry and C hemistry - challengeon 06-29-2024 TSH Qn 0.95 m[IU]/L [facility] Magnesium [Mass/Vol] 2.9 mg/dL High 1.6 - 2 .6 mg/dL [facility] Ammonia (P) [Moles/Vol] 22 umol/L 18 - 72 umol/L [facility] Magnesium [Mass/Vol]on 06-29 Higher values can be expected in females during menses. [facility] No Panel Informationon 06-29 Interpretation and review of laboratory results Normal [facility] Interpretation and review of laboratory results Abnormal [facility] Interpretation and review of laboratory results Normal [facility] P [place] 80 degrees [facility] [place] Interval 124 ms [facility] QRS [place] 42 degrees [facility] QRSD Interval 108 ms [facility] QT Interval 422 ms [facility] QTC Interval 497 ms [facility] T Wave [place] 68 degrees [facility] Sinus rhythm Incomplete left bundle branch block Probable left ventricular hypertrophy Anterior Q waves, possibly due to LVH Electronically Signed On 06-29-2024 07:59:25 EDT by Veronica Abebe CV Veronica Sharma MD - 06/29/2024 IMPRESSION: Sinus rhythm Incomplete left bundle branch block Probable left ventricular hypertrophy Anterior Q waves, possibly due to LVH Electronically Signed On 06-29-2024 07:59:25 EDT by Veronica Abebe [facility] Vital signson 06-29-2024 Heart rate 83 /min bpm [facility] DBT Breast - bilateral scree ningon 06-09-2024 [...] [facility] RAD[facility] Patient Name: APOORVA GOZNALEZ : 1950 Exam Date/Time: 06/09/2024 13:19 Procedure: BI MAMMOGRAM SCREENING TOMOSYNTHESIS BILATERAL Ordering Provider: SPAIN ABIGAIL Reason For Exam: This exam was performed at [facility] at [address] [place] [facility] [address] PATIENT CANCER HISTORY: No Personal History of Cancer FAMILY CANCER HISTORY: Cousin Breast Cancer age 32 Brother Prostate Cancer age 69 Maternal Aunt Stomach Cancer age 70 Image views: 2D Bilateral CC and MLO views were acquired. 3D Bilateral CC and MLO views were acquired. Images were reviewed with CAD. Markings on images: BB's = Nipples; skin lesions Open hughes = Palpable Line = Scar COMPARISON: 01/12/2023 and 11/28/2020 TISSUE DENSITY: BIRADS C - The breasts are heterogeneously dense, which may obscure small masses. FINDINGS: No suspicious masses, architectural distortions or suspiciously clustered microcalcifications are identified. There is no evidence of skin thickening or nipple retraction. There are no significant changes when compared with prior studies. [facility] Nalini Márquez MD - 06/09/2024 Patient Name: APOORVA GONZALEZ : 1950 Exam Date/Time: 06/09/2024 13:19 Procedure: BI MAMMOGRAM SCREENING TOMOSYNTHESIS BILATERAL Ordering Provider: SPAIN ABIGAIL Reason For Exam: This exam was performed at [facility] at [address] [place] [facility] [address] PATIENT CANCER HISTORY: No Personal History of Cancer FAMILY CANCER HISTORY: Cousin Breast Cancer age 32 Brother Prostate Cancer age 69 Maternal Aunt Stomach Cancer age 70 Image views: 2D Bilateral CC and MLO views were acquired. 3D Bilateral CC and MLO views were acquired. Images were reviewed with CAD. Markings on images: BB's = Nipples; skin lesions Open hughes = Palpable Line = Scar COMPARISON: 01/12/2023 [...] Electronically Signed Date/Time: 06/09/2024 2:24 PM EST [employer] Radiology Study observation (narrative) [employer] DBT Breast - bilateral scree ningOrdered By: Nalini Márquez on 06-09-2024 [employer] Work Phone: Basic metabolic 1998 panelOr dered By: Yonatan Cornell on 03-03-2024 Anion gap [Moles/Vol] 12 mmol/L 3 - 13 mmol/L [employer] Calcium [Mass/Vol] 8.3 mg/dL Low 8.4 - 10. 4 mg/dL [employer] Chloride [Moles/Vol] 98 mmol/L 98 - 10 7 mmol/L [employer] CO2 [Moles/Vol] 28 mmol/L 22 - 30 mmol/L [employer] Creatinine [Mass/Vol] 8.03 mg/dL High 0.52 - 1.04 mg/dL [employer] GFR/1.73 sq M.predicted (S/P/Bld) [Vol rate/Area] 4.9 mL/min Low - PINF [employer] Comment on above: Calculation based on the Chronic Kidney Disease Epidemiology Collaboration (CKD-EPI) equation refit without adjustment for race Glucose [Mass/Vol] 91 mg/dL 70 - 100 mg/dL [employer] [employer] Interpretation and review of laboratory results Abnormal [employer] Potassium [Moles/Vol] 5 mmol/L 3.5 - 5.1 mmol/L [facility] Sodium [Moles/Vol] 138 mmol/L 135 - 145 mmol/L [facility] Urea nitrogen [Mass/Vol] 42 mg/dL High 7 - 17 mg/dL [facility] CBC W Auto Differential pane l (Bld)on 03-03-2024 Basophils (Bld) [#/Vol] 0.1 10*3/uL 0.0 - 0.2 10*3/uL [facility] Basophils/100 WBC (Bld) 1.1 % 0.0 - 2.0 % [facility] Eosinophils (Bld) [#/Vol] 0.3 10*3/uL 0.0 - 0.5 10*3/uL [facility] Eosinophils/100 WBC (Bld) 4 % 0.0 - 6.0 % [facility] Erythrocyte distribution width (RBC) [Ratio] 16.8 % High 11.5 - 15.0 % [facility] Hematocrit (Bld) [Volume fraction] 32.8 % Low 35.0 - 47.0 % [facility] Hemoglobin (Bld) [Mass/Vol] 10.2 g/dL Low 11.7 - 16.0 g/dL [facility] Immature granulocytes (Bld) [#/Vol] 0 10*3/uL NINF - 0.1 10*3/uL [facility] Immature granulocytes/100 WBC (Bld) 0.4 % 0.0 - 2.0 % [facility] Interpretation and review of laboratory results Abnormal [facility] Lymphocytes (Bld) [#/Vol] 1.9 10*3/uL 1.0 - 4.3 10*3/uL [facility] Lymphocytes/100 WBC (Bld) 24.8 % 15.0 - 45.0 % [facility] MCH (RBC) [Entitic mass] 30.9 pg 26.0 - 34.0 pg [facility] MCHC (RBC) [Mass/Vol] 31.1 % 30.5 - 36.0 % [facility] MCV (RBC) [Entitic vol] 99.4 fL High 77.0 - 99.0 fL [facility] Monocytes (Bld) [#/Vol] 0.6 10*3/uL 0.0 - 0.9 10*3/uL [facility] Monocytes/100 WBC (Bld) 7.8 % 5.0 - 13.0 % [facility] Neutrophils (Bld) [#/Vol] 4.7 10*3/uL 1.8 - 7.5 10*3/uL [facility] Neutrophils/100 WBC (Bld) 61.9 % 38.0 - 82.0 % [facility] Nucleated RBC/100 WBC (Bld) [Ratio] 0 % [facility] Platelet mean volume (Bld) [Entitic vol] 10.4 fL 9.0 - 12.7 fL [facility] Platelets (Bld) [#/Vol] 409 10*3/uL 140 - 440 10*3/uL [facility] RBC (Bld) [#/Vol] 3.3 10*6/uL Low 3.80 - 5.2 0 10*6/uL [facility] WBC (Bld) [#/Vol] 7.5 10*3/uL 3.6 - 10.7 10*3/uL [facility] Laboratory - Chemistry and C hemistry - challengeon 03-03-2024 Glucose [Mass/Vol] 74 mg/dL 70 - 100 mg/dL [facility] Glucose [Mass/Vol] 90 mg/dL 70 - 100 mg/dL [facility] No Panel Informationon 03-03 Interpretation and review of laboratory results Normal [facility] Performed by: [facility], [address] [place] [address] CLIA ID: [id number] [facility] Interpretation and review of laboratory results Normal [facility] Performed by: [facility], [address] [place] [address] CLIA ID: [id number] [facility] Basic metabolic 1998 panelOr dered By: Yogi Stanley on 03-02-2024 Anion gap [Moles/Vol] 20 mmol/L High 3 - 13 mmol/L [facility] Calcium [Mass/Vol] 8.8 mg/dL 8.4 - 10. 4 mg/dL [facility] Chloride [Moles/Vol] 97 mmol/L Low 98 - 10 7 mmol/L [facility] CO2 [Moles/Vol] 20 mmol/L Low 22 - 30 mmol/L [facility] Creatinine [Mass/Vol] 11.21 mg/dL High 0.52 - 1.04 mg/dL [facility] GFR/1.73 sq M.predicted (S/P/Bld) [Vol rate/Area] 3.3 mL/min Low - PINF [facility] Comment on above: Calculation based on the Chronic Kidney Disease Epidemiology Collaboration (CKD-EPI) equation refit without adjustment for race Glucose [Mass/Vol] 110 mg/dL High 70 - 100 mg/dL [facility] Interpretation and review of laboratory results Abnormal [facility] Potassium [Moles/Vol] 6.4 mmol/L Critically high 3.5 - 5.1 mmol/L [facility] [employer] Sodium [Moles/Vol] 137 mmol/L 135 - 145 mmol/L [facility] Urea nitrogen [Mass/Vol] 58 mg/dL High 7 - 17 mg/dL [facility] CBC W Auto Differential pane l (Bld)on 03-02-2024 Basophils (Bld) [#/Vol] 0.1 10*3/uL 0.0 - 0.2 10*3/uL [facility] Basophils/100 WBC (Bld) 1.1 % 0.0 - 2.0 % [facility] [employer] Eosinophils (Bld) [#/Vol] 0.2 10*3/uL 0.0 - 0.5 10*3/uL [facility] Eosinophils/100 WBC (Bld) 2.1 % 0.0 - 6.0 % [facility] Erythrocyte distribution width (RBC) [Ratio] 16.6 % High 11.5 - 15.0 % [facility] Hematocrit (Bld) [Volume fraction] 32.3 % Low 35.0 - 47.0 % [facility] Hemoglobin (Bld) [Mass/Vol] 10.2 g/dL Low 11.7 - 16.0 g/dL [facility] [employer] Immature granulocytes (Bld) [#/Vol] 0 10*3/uL NINF - 0.1 10*3/uL [facility] [employer] Immature granulocytes/100 WBC (Bld) 0.4 % 0.0 - 2.0 % [facility] [employer] Lymphocytes (Bld) [#/Vol] 1.2 10*3/uL 1.0 - 4.3 10*3/uL [facility] [employer] Lymphocytes/100 WBC (Bld) 14.4 % Low 15.0 - 45.0 % [facility] MCH (RBC) [Entitic mass] 30.6 pg 26.0 - 34.0 pg [facility] [employer] MCHC (RBC) [Mass/Vol] 31.6 % 30.5 - 36.0 % [facility] [employer] MCV (RBC) [Entitic vol] 97 fL 77.0 - 99.0 fL [facility] [employer] Monocytes (Bld) [#/Vol] 0.5 10*3/uL 0.0 - 0.9 10*3/uL [facility] [employer] Monocytes/100 WBC (Bld) 5.4 % 5.0 - 13.0 % [facility] Neutrophils (Bld) [#/Vol] 6.5 10*3/uL 1.8 - 7.5 10*3/uL [facility] Neutrophils/100 WBC (Bld) 76.6 % 38.0 - 82.0 % [facility] [employer] Nucleated RBC/100 WBC (Bld) [Ratio] 0 % [facility] [employer] Platelet mean volume (Bld) [Entitic vol] 10.3 fL 9.0 - 12.7 fL [facility] [employer] Platelets (Bld) [#/Vol] 406 10*3/uL 140 - 440 10*3/uL [facility] [employer] RBC (Bld) [#/Vol] 3.33 10*6/uL Low 3.80 - 5.2 0 10*6/uL [facility] [employer] WBC (Bld) [#/Vol] 8.5 10*3/uL 3.6 - 10.7 10*3/uL [facility] Laboratory - Chemistry and C hemistry - challengeon 03-02-2024 Glucose [Mass/Vol] 124 mg/dL High 70 - 100 mg/dL [facility] [employer] Glucose [Mass/Vol] 126 mg/dL High 70 - 100 mg/dL [facility] [employer] Glucose [Mass/Vol] 77 mg/dL 70 - 100 mg/dL [facility] [employer] Troponin I.cardiac [Mass/Vol] 0.029 ng/mL NINF - 0.034 ng/mL [facility] [employer] Troponin I.cardiac [Mass/Vol] 0.029 ng/mL NINF - 0.034 ng/mL [facility] [employer] Glucose [Mass/Vol] 88 mg/dL 70 - 100 mg/dL [facility] [employer] Glucose [Mass/Vol] 57 mg/dL Low 70 - 100 mg/dL [facility] [employer] Glucose [Mass/Vol] 239 mg/dL High 70 - 100 mg/dL [facility] [employer] Glucose [Mass/Vol] 88 mg/dL 70 - 100 mg/dL [facility] Troponin I.cardiac [Mass/Vol] 0.028 ng/mL NINF - 0.034 ng/mL [facility] Laboratory - Chemistry and C hemistry - challengeOrdered By: Christiano Weinberg on 03-02-2024 Base excess Calc (BldV) [Moles/Vol] -0.1000 mmol/L -3.0 - 3.0 mmol/L [facility] CO2 (BldV) [Partial pressure] 36 mm[Hg] Low [facility] CO2 [Moles/Vol] 24.8 mmol/L 24.0 - 28.0 mmol/L [facility] HCO3 (Bld) [Moles/Vol] 23.7 mmol/L 23.0 - 27.0 mmol/L [facility] Oxygen (BldV) [Partial pressure] 45.7 mm[Hg] mm Hg [facility] pH (BldV) 7.437 [pH] High 7.330 - 7.430 [facility] Laboratory - Hematology and Cell countsOrdered By: Christiano Weinberg on 03-02-2024 Hemoglobin (Bld) [Mass/Vol] 12.1 g/dL Screen only [facility] Natriuretic peptide B [Mass/ Vol]on 03-02-2024 Interpretation and review of laboratory results Abnormal [facility] Natriuretic peptide B (Bld) [Mass/Vol] 58550 pg/mL High NINF - 125 pg/mL [facility] No Panel Informationon 03-02 Interpretation and review of laboratory results Abnormal [facility] Performed by: [facility], [address] [place] [id number] CLIA ID: [id number] [facility] Interpretation and review of laboratory results Abnormal [facility] Performed by: [facility], [address] [place] [id number] CLIA ID: [id number] [facility] Interpretation and review of laboratory results Normal [facility] Performed by: [facility], [address] [place] [id number] CLIA ID: [id number] [facility] Interpretation and review of laboratory results Normal [facility] Performed by: [facility], [address] [place] [id number] CLIA ID: [id number] [facility] Interpretation and review of laboratory results Abnormal [facility]formed by: [facility], [address] [facility] [place] [address] CLIA ID: [id number] [facility] Interpretation and review of laboratory results Abnormal [facility] Performed by: [facility], [address] [facility] [address] CLIA ID: [id number] [facility] P [place] 65 degrees [facility] [place] Interval 129 ms [facility] QRS [place] 3 degrees [facility] QRSD Interval 91 ms [facility] QT Interval 384 ms [facility] QTC Interval 464 ms [facility] T Wave [place] 58 degrees [facility] Sinus rhythm Minimal ST elevation, anterior leads Normal axis Electronically Signed On 03-02-2024 07:17:20 EST by Marcus Sutherland DO - 03/02/2024 IMPRESSION: Sinus rhythm Minimal ST elevation, anterior leads Normal axis Electronically Signed On 03-02-2024 07:17:20 EST by Marcus Cordonquentin [facility] P [place] 58 degrees [facility] [place] Interval 123 ms [facility] QRS [place] 0 degrees [facility] QRSD Interval 96 ms [facility] QT Interval 404 ms [facility] QTC Interval 483 ms [facility] T Wave [place] 51 degrees [facility] Sinus rhythm Probable left atrial enlargement Normal axis Electronically Signed On 03-02-2024 07:16:24 EST by Marcus Sutherland DO - 03/02/2024 IMPRESSION: Sinus rhythm Probable left atrial enlargement Normal axis Electronically Signed On 03-02-2024 07:16:24 EST by Marcus [facility] Interpretation and review of laboratory results Normal [facility] Performed by: [facility], [address] [place] [id number] CLIA ID: [id number] [facility] Interpretation and review of laboratory results Abnormal [facility] No Panel InformationOrdered By: Christiano Weinberg on 03-02-2024 Source Of Oxygen 2L [facility] Assessment of oxygenation is best done with an arterial blood gas determination. Reference ranges for pO2, bicarbonate, and base excess are for mixed venous blood. Specimens drawn from a peripheral vein will often have higher values. [facility] Troponin I.cardiac [Mass/Vol ]on 03-02-2024 Interpretation and review of laboratory results Normal [facility] Patients with high levels of Biotin oral intake (ie >5 mg/day) may have falsely decreased Troponin levels. [facility] Interpretation and review of laboratory results Normal [facility] Patients with high levels of Biotin oral intake (ie >5 mg/day) may have falsely decreased Troponin levels. [facility] Interpretation and review of laboratory results Normal [facility] Patients with high levels of Biotin oral intake (ie >5 mg/day) may have falsely decreased Troponin levels. [facility] Vital signson 03-02-2024 Heart rate 88 /min bpm [facility] Heart rate 86 /min bpm [facility] Vital signsOrdered By: Christiano Weinberg on 03-02-2024 Oxygen saturation in Venous blood 73.5 % [facility] XR Chest Single viewon 03-02 1. Worsening bibasil ar infiltrates and effusions. 2. Prominence of the central pulmonary vasculature consistent with moderate to severe congestive heart failure/fluid overload. Report Dictated on Electronically Signed By: Honorio Henson MD Electronically Signed Date/Time: 03/02/2024 4:43 AM EST [employer] Patient Name: APOORVA GONZALEZ : 1950 [...] the interstitium and central pulmonary vasculature. [facility] [employer] [facility] Honorio Henson MD - 03/02/2024 [facility] Name[facility] 1950 [id number] Exam Date/Time: 03/02/2024 04:24 Procedure: XR CHEST [...] Electronically Signed Date/Time: 03/02/2024 4:43 AM EST [employer] Radiology Study observation (narrative) [employer] XR Chest Single viewOrdered By: Honorio Henson on 03-02-2024 [employer] Work Phone: CBC W Auto Differential pane l (Bld)Ordered By: Andre Ervin on 02-20-2024 Basophils (Bld) [#/Vol] 0.1 10*3/uL 0.0 - 0.2 10*3/uL [employer] Basophils/100 WBC (Bld) 1.1 % 0.0 - 2.0 % [employer] [employer] Eosinophils (Bld) [#/Vol] 0.5 10*3/uL 0.0 - 0.5 10*3/uL [employer] [employer] Eosinophils/100 WBC (Bld) 4.6 % 0.0 - 6.0 % [employer] [employer] Erythrocyte distribution width (RBC) [Ratio] 17.5 % High 11.5 - 15.0 % [employer] Hematocrit (Bld) [Volume fraction] 27.4 % Low 35.0 - 47.0 % [employer] [employer] Hemoglobin (Bld) [Mass/Vol] 8.4 g/dL Low 11.7 - 16.0 g/dL [facility] [employer] Immature granulocytes (Bld) [#/Vol] 0.1 10*3/uL High NINF - 0.1 10*3/uL [facility] Immature granulocytes/100 WBC (Bld) 0.4 % 0.0 - 2.0 % [facility] Interpretation and review of laboratory results Abnormal [facility] Lymphocytes (Bld) [#/Vol] 2.5 10*3/uL 1.0 - 4.3 10*3/uL [facility] Lymphocytes/100 WBC (Bld) 22.7 % 15.0 - 45.0 % [facility] MCH (RBC) [Entitic mass] 30.8 pg 26.0 - 34.0 pg [facility] MCHC (RBC) [Mass/Vol] 30.7 % 30.5 - 36.0 % [facility] MCV (RBC) [Entitic vol] 100.4 fL High 77.0 - 99.0 fL [facility] Monocytes (Bld) [#/Vol] 0.9 10*3/uL 0.0 - 0.9 10*3/uL [facility] Monocytes/100 WBC (Bld) 8 % 5.0 - 13.0 % [facility] Neutrophils (Bld) [#/Vol] 7.1 10*3/uL 1.8 - 7.5 10*3/uL [facility] Neutrophils/100 WBC (Bld) 63.2 % 38.0 - 82.0 % [facility] Nucleated RBC/100 WBC (Bld) [Ratio] 0 % [facility] Platelet mean volume (Bld) [Entitic vol] 10.1 fL 9.0 - 12.7 fL [facility] Platelets (Bld) [#/Vol] 405 10*3/uL 140 - 440 10*3/uL [facility] RBC (Bld) [#/Vol] 2.73 10*6/uL Low 3.80 - 5.2 0 10*6/uL [facility] WBC (Bld) [#/Vol] 11.2 10*3/uL High 3.6 - 10.7 10*3/uL [facility] Comprehensive metabolic 1998 panelOrdered By: Gracie Wooten on 02-20-2024 Albumin [Mass/Vol] 3.4 g/dL Low 3.5 - 5.0 g/dL [facility] ALP [Catalytic activity/Vol] 136 U/L High 38 - 126 U/L [facility] ALT [Catalytic activity/Vol] 35 U/L High 0 - 34 U/L [facility] Anion gap [Moles/Vol] 11 mmol/L 3 - 13 mmol/L [facility] AST [Catalytic activity/Vol] 41 U/L 15 - 46 U/L [facility] Bilirubin [Mass/Vol] 0.7 mg/dL 0.2 - 1 .3 mg/dL [facility] Calcium [Mass/Vol] 8.2 mg/dL Low 8.4 - 10. 4 mg/dL [facility] Chloride [Moles/Vol] 97 mmol/L Low 98 - 10 7 mmol/L [facility] CO2 [Moles/Vol] 27 mmol/L 22 - 30 mmol/L [facility] Creatinine [Mass/Vol] 4.37 mg/dL High 0.52 - 1.04 mg/dL [facility] GFR/1.73 sq M.predicted (S/P/Bld) [Vol rate/Area] 10.2 mL/min Low - PINF [facility] Comment on above: Calculation based on the Chronic Kidney Disease Epidemiology Collaboration (CKD-EPI) equation refit without adjustment for race Glucose [Mass/Vol] 91 mg/dL 70 - 100 mg/dL [facility] Interpretation and review of laboratory results Abnormal [facility] Potassium [Moles/Vol] 3.8 mmol/L 3.5 - 5.1 mmol/L [facility] Protein [Mass/Vol] 6.2 g/dL Low 6.3 - 8.2 g/dL [facility] Sodium [Moles/Vol] 135 mmol/L 135 - 145 mmol/L [facility] Urea nitrogen [Mass/Vol] 29 mg/dL High 7 - 17 mg/dL [facility] Laboratory - Chemistry and C hemistry - challengeon 02-20-2024 Procalcitonin [Mass/Vol] 0.56 ng/mL High 0.00 - 0.09 ng/mL [facility] Procalcitonin [Mass/Vol]on 04-21-2023 Interpretation and review of laboratory results Abnormal [facility] PCT <0.50 = Low risk of severe sepsis and/or septic shock. PCT >2.00 = High risk of severe sepsis and/or septic shock. [facility] CBC W Auto Differential pane l (Bld)Ordered By: Beatriz Morales on 02-19-2024 Basophils (Bld) [#/Vol] 0.2 10*3/uL 0.0 - 0.2 10*3/uL [facility] Basophils/100 WBC (Bld) 1.3 % 0.0 - 2.0 % [facility] Eosinophils (Bld) [#/Vol] 0.6 10*3/uL High 0.0 - 0.5 10*3/uL [facility] Eosinophils/100 WBC (Bld) 4.9 % 0.0 - 6.0 % [facility] Erythrocyte distribution width (RBC) [Ratio] 18 % High 11.5 - 15.0 % [facility] Hematocrit (Bld) [Volume fraction] 30.6 % Low 35.0 - 47.0 % [facility] Hemoglobin (Bld) [Mass/Vol] 9.2 g/dL Low 11.7 - 16.0 g/dL [facility] Immature granulocytes (Bld) [#/Vol] 0.1 10*3/uL High NINF - 0.1 10*3/uL [facility] Immature granulocytes/100 WBC (Bld) 0.4 % 0.0 - 2.0 % [facility] Interpretation and review of laboratory results Abnormal [facility] Lymphocytes (Bld) [#/Vol] 2 10*3/uL 1.0 - 4.3 10*3/uL [facility] Lymphocytes/100 WBC (Bld) 17.1 % 15.0 - 45.0 % [facility] MCH (RBC) [Entitic mass] 30.7 pg 26.0 - 34.0 pg [facility] MCHC (RBC) [Mass/Vol] 30.1 % Low 30.5 - 36.0 % [facility] MCV (RBC) [Entitic vol] 102 fL High 77.0 - 99.0 fL [facility] Monocytes (Bld) [#/Vol] 0.7 10*3/uL 0.0 - 0.9 10*3/uL [facility] Monocytes/100 WBC (Bld) 6.3 % 5.0 - 13.0 % [facility] Neutrophils (Bld) [#/Vol] 8 10*3/uL High 1.8 - 7.5 10*3/uL [facility] Neutrophils/100 WBC (Bld) 70 % 38.0 - 82.0 % [facility] Nucleated RBC/100 WBC (Bld) [Ratio] 0.2 % [facility] Platelet mean volume (Bld) [Entitic vol] 10.4 fL 9.0 - 12.7 fL [facility] Platelets (Bld) [#/Vol] 472 10*3/uL High 140 - 440 10*3/uL [facility] RBC (Bld) [#/Vol] 3 10*6/uL Low 3.80 - 5.2 0 10*6/uL [facility] WBC (Bld) [#/Vol] 11.5 10*3/uL High 3.6 - 10.7 10*3/uL [facility] Comprehensive metabolic 1998 panelOrdered By: Cathy Salinas on 02-19-2024 Albumin [Mass/Vol] 3.7 g/dL 3.5 - 5.0 g/dL [facility] ALP [Catalytic activity/Vol] 122 U/L 38 - 126 U/L [facility] ALT [Catalytic activity/Vol] 42 U/L High 0 - 34 U/L [facility] Anion gap [Moles/Vol] 11 mmol/L 3 - 13 mmol/L [facility] AST [Catalytic activity/Vol] 76 U/L High 15 - 46 U/L [facility] Bilirubin [Mass/Vol] 1.1 mg/dL 0.2 - 1 .3 mg/dL [facility] Calcium [Mass/Vol] 8.5 mg/dL 8.4 - 10. 4 mg/dL [facility] Chloride [Moles/Vol] 95 mmol/L Low 98 - 10 7 mmol/L [facility] CO2 [Moles/Vol] 28 mmol/L 22 - 30 mmol/L [facility] Creatinine [Mass/Vol] 3.12 mg/dL High 0.52 - 1.04 mg/dL [facility] GFR/1.73 sq M.predicted (S/P/Bld) [Vol rate/Area] 15.2 mL/min Low - PINF [facility] Comment on above: Calculation based on the Chronic Kidney Disease Epidemiology Collaboration (CKD-EPI) equation refit without adjustment for race Glucose [Mass/Vol] 104 mg/dL High 70 - 100 mg/dL [facility] Interpretation and review of laboratory results Abnormal [facility] Potassium [Moles/Vol] 4.1 mmol/L 3.5 - 5.1 mmol/L [facility] Protein [Mass/Vol] 6.9 g/dL 6.3 - 8.2 g/dL [facility] Sodium [Moles/Vol] 134 mmol/L Low 135 - 145 mmol/L [facility] Urea nitrogen [Mass/Vol] 18 mg/dL High 7 - 17 mg/dL [facility] AST, Potassium, Alkaline Phosphatase-Slightly Hemolyzed. Interpret with caution. [facility] Comprehensive metabolic 1998 panelon 02-19-2024 Albumin [Mass/Vol] 4 g/dL 3.5 - 5.0 g/dL [facility] ALP [Catalytic activity/Vol] 131 U/L High 38 - 126 U/L [facility] ALT [Catalytic activity/Vol] 50 U/L High 0 - 34 U/L [facility] Anion gap [Moles/Vol] 18 mmol/L High 3 - 13 mmol/L [facility] AST [Catalytic activity/Vol] 105 U/L High 15 - 46 U/L [facility] Bilirubin [Mass/Vol] 1.1 mg/dL 0.2 - 1 .3 mg/dL [facility] Calcium [Mass/Vol] 8.2 mg/dL Low 8.4 - 10. 4 mg/dL [facility] Chloride [Moles/Vol] 95 mmol/L Low 98 - 10 7 mmol/L [facility] CO2 [Moles/Vol] 21 mmol/L Low 22 - 30 mmol/L [facility] Creatinine [Mass/Vol] 6.67 mg/dL High 0.52 - 1.04 mg/dL [facility] GFR/1.73 sq M.predicted (S/P/Bld) [Vol rate/Area] 6.1 mL/min Low - PINF [facility] Comment on above: Calculation based on the Chronic Kidney Disease Epidemiology Collaboration (CKD-EPI) equation refit without adjustment for race Glucose [Mass/Vol] 193 mg/dL High 70 - 100 mg/dL [facility] Interpretation and review of laboratory results Abnormal [facility] Potassium [Moles/Vol] 5.2 mmol/L High 3.5 - 5.1 mmol/L [facility] Protein [Mass/Vol] 7.3 g/dL 6.3 - 8.2 g/dL [facility] Sodium [Moles/Vol] 134 mmol/L Low 135 - 145 mmol/L [facility] Urea nitrogen [Mass/Vol] 44 mg/dL High 7 - 17 mg/dL [facility] Slightly Hemolyzed. Interpret Potassium, Total Protein, Albumin, Alkaline Phosphatase, and AST with caution. [facility] Laboratory - Chemistry and C hemistry - challengeon 02-19-2024 Troponin I.cardiac [Mass/Vol] 0.033 ng/mL [facility] - 0.034 ng/mL [facility] Troponin I.cardiac [Mass/Vol] 0.042 ng/mL High NINF - 0.034 ng/mL [facility] Procalcitonin [Mass/Vol] 0.48 ng/mL High 0.00 - 0.09 ng/mL [facility] Lactate [Moles/Vol] 1.3 mmol/L 0.7 - 2. 0 mmol/L [facility] Troponin I.cardiac [Mass/Vol] 0.034 ng/mL High [facility] - 0.034 ng/mL [facility] Base excess Calc (BldV) [Moles/Vol] 4.4 mmol/L High -3.0 - 3.0 mmol/L [facility] CO2 (BldV) [Partial pressure] 44.1 mm[Hg] [facility] CO2 [Moles/Vol] 30.4 mmol/L High 24.0 - 28.0 mmol/L [facility] HCO3 (Bld) [Moles/Vol] 29.1 mmol/L High 23.0 - 27.0 mmol/L [facility] Oxygen (BldV) [Partial pressure] 41.7 mm[Hg] mm Hg [facility] pH (BldV) 7.437 [pH] High 7.330 - 7.430 [facility] Troponin I.cardiac [Mass/Vol] 0.027 ng/mL [facility] - 0.034 ng/mL [facility] Lactate [Moles/Vol] 3.3 mmol/L High 0.7 - 2. 0 mmol/L [facility] Laboratory - Chemistry and C hemistry - challengeOrdered By: Christiano Weinberg on 02-19-2024 Base excess Calc (BldV) [Moles/Vol] 3.3 mmol/L High -3.0 - 3.0 mmol/L [facility] CO2 (BldV) [Partial pressure] 62.2 mm[Hg] High [facility] CO2 [Moles/Vol] 32.3 mmol/L High 24.0 - 28.0 mmol/L [facility] HCO3 (Bld) [Moles/Vol] 30.4 mmol/L High 23.0 - 27.0 mmol/L [facility] Oxygen (BldV) [Partial pressure] 19.6 mm[Hg] mm Hg [facility] pH (BldV) 7.307 [pH] Low 7.330 - 7.430 [facility] Laboratory - Hematology and Cell countson 02-19-2024 Hemoglobin (Bld) [Mass/Vol] 8.8 g/dL Screen only [facility] Laboratory - Hematology and Cell countsOrdered By: Christiano Weinberg on 02-19-2024 Hemoglobin (Bld) [Mass/Vol] 8.7 g/dL Screen only [facility] Natriuretic peptide B [Mass/ Vol]Ordered By: aHndy Jarvis on 02-19-2024 Interpretation and review of laboratory results Abnormal [facility] Natriuretic peptide B (Bld) [Mass/Vol] 11875 pg/mL High NINF - 125 pg/mL [facility] No Panel InformationOrdered By: Amol Perdue on 02-19-2024 Interpretation and review of laboratory results Normal [facility] Legionella pneumophila Ag Not detected Not Detected [facility] Streptococcus pneumoniae Ag Not detected Not Detected [facility] Methodology: Lateral flow enzyme immunoassay This assay is approved for detection of antigens to Streptococcus pneumoniae and Legionella pneumophila serogroup 1; however, other L. pneumophila serogroups may also be detected. [facility] No Panel Informationon 02-18 Interpretation and review of laboratory results Normal [facility] Interpretation and review of laboratory results Abnormal [facility] Source Of Oxygen [facility] Comment on above: 6L Assessment of oxygenation is best done with an arterial blood gas determination. Reference ranges for pO2, bicarbonate, and base excess are for mixed venous blood. Specimens drawn from a peripheral vein will often have higher values. [facility] Interpretation and review of laboratory results Abnormal [facility] P [place] 67 degrees [facility] [place] Interval 133 ms [facility] QRS [place] 3 degrees [facility] QRSD Interval 82 ms [facility] QT Interval 397 ms [facility] QTC Interval 465 ms [facility] T Wave [place] 48 degrees [facility] Sinus rhythm Probable left ventricular hypertrophy Anterior Q waves Electronically Signed On 02-19-2024 04:31:07 EST by Brown Barreto DO - 02/19/2024 IMPRESSION: Sinus rhythm Probable left ventricular hypertrophy Anterior Q waves Electronically Signed On 02-19-2024 04:31:07 EST by Brown Kaur [facility] No Panel InformationOrdered By: Christiano Weinberg on 02-19-2024 Interpretation and review of laboratory results Abnormal [facility] Source Of Oxygen [facility] Comment on above: 100% Assessment of oxygenation is best done with an arterial blood gas determination. Reference ranges for pO2, bicarbonate, and base excess are for mixed venous blood. Specimens drawn from a peripheral vein will often have higher values. [facility] Procalcitonin [Mass/Vol]on 04-20-2023 Interpretation and review of laboratory results Abnormal [facility] PCT <0.50 = Low risk of severe sepsis and/or septic shock. PCT >2.00 = High risk of severe sepsis and/or septic shock. [facility] Respiratory pathogens DNA an d RNA panel CHIQUIS+non-probe (Nph)on 02-19-2024 Adenovirus Not detected Not Detected [facility] B. pertussis DNA CHIQUIS+probe Ql (Unsp spec) Not detected Not Detected [facility] Bordetella parapertussis Not detected Not Detected [facility] Chlamydia pneumoniae Not detected Not Detected [facility] Coronavirus 229E Not detected Not Detected [facility] Coronavirus HKU1 Not detected Not Detected [facility] Coronavirus NL63 Not detected Not Detected [facility] Coronavirus OC43 Not detected Not Detected [facility] FLUAV RNA CHIQUIS+non-probe Ql (Nph) Not detected Not Detected [facility] FLUBV RNA CHIQUIS+non-probe Ql (Nph) Not detected Not Detected [facility] Human Metapneumovirus Not detected Not Detected [facility] Human Rhinovirus/Enterovirus Not detected Not Detected [facility] Interpretation and review of laboratory results Normal [facility] Mycoplasma pneumoniae Not detected Not Detected [facility] Parainfluenza 1 Not detected Not Detected [facility] Parainfluenza 2 Not detected Not Detected [facility] Parainfluenza 3 Not detected Not Detected [facility] Parainfluenza 4 Not detected Not Detected [facility] Respiratory Syncytial Virus Not detected Not Detected [facility] SARS-CoV-2 (COVID-19) RNA CHIQUIS+non-probe Ql (Nph) Not detected Not Detected [facility] Methodology: Multipl ex PCR [facility] Troponin I.cardiac [Mass/Vol ]on 02-19-2024 Interpretation and review of laboratory results Normal [facility] Patients with high levels of Biotin oral intake (ie >5 mg/day) may have falsely decreased Troponin levels. [facility] Interpretation and review of laboratory results Abnormal [facility] Patients with high levels of Biotin oral intake (ie >5 mg/day) may have falsely decreased Troponin levels. [facility] Interpretation and review of laboratory results Abnormal [facility] Patients with high levels of Biotin oral intake (ie >5 mg/day) may have falsely decreased Troponin levels. [facility] Interpretation and review of laboratory results Normal [facility] Moderately Hemolyzed . Interpret Troponin with caution. Patients with high levels of Biotin oral intake (ie >5 mg/day) may have falsely decreased Troponin levels. [facility] Vital signson 02-19-2024 Oxygen saturation in Venous blood 71.7 % [facility] Heart rate 82 /min bpm [facility] Vital signsOrdered By: Christiano Weinberg on 02-19-2024 Oxygen saturation in Venous blood 19.6 % [facility] XR Chest Single viewon 02-18 Extensive patchy bilateral pulmonary consolidation, which may be due to alveolar edema versus pneumonia. Moderate bilateral pleural effusions. Report Dictated on Electronically Signed By: Ana Ashton MD Electronically Signed Date/Time: 02/19/2024 4:37 AM EST [facility] [employer] [facility] Patient Name: APOORVA GONZALEZ : 1950 [...] pneumothorax is identified. OSSEOUS STRUCTURES: Unremarkable. [facility] RADIOLOGY SYSTEM Ana Ashton M D - 02/19/2024 Patient Name: APOORVA GONZALEZ : 1950 [facility]#: [id number] Exam Date/Time: 02/19/2024 04:15 Procedure: XR CHEST [...] Electronically Signed Date/Time: 02/19/2024 4:37 AM EST [facility] [employer] Radiology Study observation (narrative) [employer] XR Chest Single viewOrdered By: Ana Ashton on 02-19-2024 [employer] Work Phone: Basic metabolic 1998 panelon 02-12-2024 Anion gap [Moles/Vol] 12 mmol/L 3 - 13 mmol/L [facility] [employer] Calcium [Mass/Vol] 8.7 mg/dL 8.4 - 10. 4 mg/dL [facility] [employer] Chloride [Moles/Vol] 90 mmol/L Low 98 - 10 7 mmol/L [facility] [employer] CO2 [Moles/Vol] 32 mmol/L High 22 - 30 mmol/L [facility] [employer] Creatinine [Mass/Vol] 2.71 mg/dL High 0.52 - 1.04 mg/dL [facility] [employer] GFR/1.73 sq M.predicted (S/P/Bld) [Vol rate/Area] 18 mL/min Low - PINF [facility] Comment on above: Calculation based on the Chronic Kidney Disease Epidemiology Collaboration (CKD-EPI) equation refit without adjustment for race Glucose [Mass/Vol] 92 mg/dL 70 - 100 mg/dL [facility] Interpretation and review of laboratory results Abnormal [facility] Potassium [Moles/Vol] 4 mmol/L 3.5 - 5.1 mmol/L [facility] Sodium [Moles/Vol] 134 mmol/L Low 135 - 145 mmol/L [facility] Urea nitrogen [Mass/Vol] 11 mg/dL 7 - 17 mg/dL [facility] Slightly Hemolyzed. Interpret K+ with caution. [facility] CBC panel Auto (Bld)on 02-11 Erythrocyte distribution width (RBC) [Ratio] 16.3 % High 11.5 - 15.0 % [facility] Hematocrit (Bld) [Volume fraction] 23.7 % Low 35.0 - 47.0 % [facility] Hemoglobin (Bld) [Mass/Vol] 7.6 g/dL Low 11.7 - 16.0 g/dL [facility] Interpretation and review of laboratory results Abnormal [facility] MCH (RBC) [Entitic mass] 30.8 pg 26.0 - 34.0 pg [facility] MCHC (RBC) [Mass/Vol] 32.1 % 30.5 - 36.0 % [facility] MCV (RBC) [Entitic vol] 96 fL 77.0 - 99.0 fL [facility] Platelet mean volume (Bld) [Entitic vol] 11 fL 9.0 - 12.7 fL [facility] Platelets (Bld) [#/Vol] 385 10*3/uL 140 - 440 10*3/uL [facility] RBC (Bld) [#/Vol] 2.47 10*6/uL Low 3.80 - 5.2 0 10*6/uL [facility] WBC (Bld) [#/Vol] 11.5 10*3/uL High 3.6 - 10.7 10*3/uL [facility] Laboratory - Chemistry and C hemistry - challengeon 02-12-2024 Troponin I.cardiac [Mass/Vol] 0.03 ng/mL [facility] - 0.034 ng/mL [facility] Troponin I.cardiac [Mass/Vol ]on 02-12-2024 Interpretation and review of laboratory results Normal [facility] Slightly Hemolyzed. Interpret Troponin I with caution. Patients with high levels of Biotin oral intake (ie >5 mg/day) may have falsely decreased Troponin levels. [facility] Basic metabolic 1998 panelon 01-25-2024 Anion gap [Moles/Vol] 17 mmol/L High 3 - 13 mmol/L [facility] Calcium [Mass/Vol] 8.3 mg/dL Low 8.4 - 10. 4 mg/dL [facility] Chloride [Moles/Vol] 101 mmol/L 98 - 10 7 mmol/L [facility] CO2 [Moles/Vol] 18 mmol/L Low 22 - 30 mmol/L [facility] Creatinine [Mass/Vol] 8.47 mg/dL High 0.52 - 1.04 mg/dL [facility] GFR/1.73 sq M.predicted (S/P/Bld) [Vol rate/Area] 4.6 mL/min Low - PINF [facility] Comment on above: Calculation based on the Chronic Kidney Disease Epidemiology Collaboration (CKD-EPI) equation refit without adjustment for race Glucose [Mass/Vol] 82 mg/dL 70 - 100 mg/dL [facility] Interpretation and review of laboratory results Abnormal [facility] Potassium [Moles/Vol] 4.6 mmol/L 3.5 - 5.1 mmol/L [facility] Sodium [Moles/Vol] 136 mmol/L 135 - 145 mmol/L [facility] Urea nitrogen [Mass/Vol] 36 mg/dL High 7 - 17 mg/dL [facility] CBC W Auto Differential pane l (Bld)on 01-25-2024 Basophils (Bld) [#/Vol] 0.1 10*3/uL 0.0 - 0.2 10*3/uL [facility] Basophils/100 WBC (Bld) 0.9 % 0.0 - 2.0 % [facility] Eosinophils (Bld) [#/Vol] 0.3 10*3/uL 0.0 - 0.5 10*3/uL [facility] Eosinophils/100 WBC (Bld) 1.7 % 0.0 - 6.0 % [facility] Erythrocyte distribution width (RBC) [Ratio] 15.7 % High 11.5 - 15.0 % [facility] Hematocrit (Bld) [Volume fraction] 26.4 % Low 35.0 - 47.0 % [facility] Hemoglobin (Bld) [Mass/Vol] 8.6 g/dL Low 11.7 - 16.0 g/dL [facility] Immature granulocytes (Bld) [#/Vol] 0.1 10*3/uL High NINF - 0.1 10*3/uL [facility] [employer] Immature granulocytes/100 WBC (Bld) 0.7 % 0.0 - 2.0 % [facility] Interpretation and review of laboratory results Abnormal [facility] Lymphocytes (Bld) [#/Vol] 2.3 10*3/uL 1.0 - 4.3 10*3/uL [facility] Lymphocytes/100 WBC (Bld) 15.3 % 15.0 - 45.0 % [facility] MCH (RBC) [Entitic mass] 30.3 pg 26.0 - 34.0 pg [facility] MCHC (RBC) [Mass/Vol] 32.6 % 30.5 - 36.0 % [facility] MCV (RBC) [Entitic vol] 93 fL 77.0 - 99.0 fL [facility] Monocytes (Bld) [#/Vol] 0.8 10*3/uL 0.0 - 0.9 10*3/uL [facility] Monocytes/100 WBC (Bld) 5 % 5.0 - 13.0 % [facility] Neutrophils (Bld) [#/Vol] 11.6 10*3/uL High 1.8 - 7.5 10*3/uL [facility] Neutrophils/100 WBC (Bld) 76.4 % 38.0 - 82.0 % [facility] Nucleated RBC/100 WBC (Bld) [Ratio] 0 % [facility] Platelet mean volume (Bld) [Entitic vol] 9.8 fL 9.0 - 12.7 fL [facility] Platelets (Bld) [#/Vol] 400 10*3/uL 140 - 440 10*3/uL [facility] RBC (Bld) [#/Vol] 2.84 10*6/uL Low 3.80 - 5.2 0 10*6/uL [facility] WBC (Bld) [#/Vol] 15.1 10*3/uL High 3.6 - 10.7 10*3/uL [facility] Laboratory - Chemistry and C hemistry - challengeon 01-25-2024 Magnesium [Mass/Vol] 2.2 mg/dL 1.6 - 2 .3 mg/dL [facility] Magnesium [Mass/Vol]on 01-24 Interpretation and review of laboratory results Normal [facility] No Panel Informationon 01-24 [facility] Phosphate [Moles/Vol]on 01-04 Interpretation and review of laboratory results Abnormal [facility] Phosphate [Mass/Vol] 5.7 mg/dL High 2.5 - 4 .5 mg/dL [facility] Basic metabolic 1998 panelOr rich By: Mak Hobbs on 01-24-2024 Anion gap [Moles/Vol] 11 mmol/L 3 - 13 mmol/L [facility] Calcium [Mass/Vol] 7.7 mg/dL Low 8.4 - 10. 4 mg/dL [facility] Chloride [Moles/Vol] 103 mmol/L 98 - 10 7 mmol/L [facility] CO2 [Moles/Vol] 23 mmol/L 22 - 30 mmol/L [facility] Creatinine [Mass/Vol] 6.63 mg/dL High 0.52 - 1.04 mg/dL [facility] GFR/1.73 sq M.predicted (S/P/Bld) [Vol rate/Area] 6.2 mL/min Low - PINF [facility] Comment on above: Calculation based on the Chronic Kidney Disease Epidemiology Collaboration (CKD-EPI) equation refit without adjustment for race Glucose [Mass/Vol] 116 mg/dL High 70 - 100 mg/dL [facility] Interpretation and review of laboratory results Abnormal [facility] Potassium [Moles/Vol] 4 mmol/L 3.5 - 5.1 mmol/L [facility] Sodium [Moles/Vol] 136 mmol/L 135 - 145 mmol/L [facility] Urea nitrogen [Mass/Vol] 30 mg/dL High 7 - 17 mg/dL [facility] Blood type and Crossmatch pa kojo (Bld)on 01-24-2024 ABO group Nom (Bld) O [facility] Blood group antibody screen GEL Ql Negative [facility] D Ag Ql (RBC) Positive [facility] CBC W Auto Differential pane l (Bld)on 01-24-2024 Basophils (Bld) [#/Vol] 0.1 10*3/uL 0.0 - 0.2 10*3/uL [facility] Basophils/100 WBC (Bld) 0.7 % 0.0 - 2.0 % [facility] Eosinophils (Bld) [#/Vol] 0.2 10*3/uL 0.0 - 0.5 10*3/uL [facility] Eosinophils/100 WBC (Bld) 1.7 % 0.0 - 6.0 % [facility] Erythrocyte distribution width (RBC) [Ratio] 16.3 % High 11.5 - 15.0 % [facility] Hematocrit (Bld) [Volume fraction] 19.8 % Low 35.0 - 47.0 % [facility] Hemoglobin (Bld) [Mass/Vol] 6.4 g/dL Critically low 11.7 - 16.0 g/dL [facility] Immature granulocytes (Bld) [#/Vol] 0.1 10*3/uL High NINF - 0.1 10*3/uL [facility] Immature granulocytes/100 WBC (Bld) 0.8 % 0.0 - 2.0 % [facility] Interpretation and review of laboratory results Abnormal [facility] Lymphocytes (Bld) [#/Vol] 1.5 10*3/uL 1.0 - 4.3 10*3/uL [facility] Lymphocytes/100 WBC (Bld) 10.5 % Low 15.0 - 45.0 % [facility] MCH (RBC) [Entitic mass] 29.9 pg 26.0 - 34.0 pg [facility] MCHC (RBC) [Mass/Vol] 32.3 % 30.5 - 36.0 % [facility] MCV (RBC) [Entitic vol] 92.5 fL 77.0 - 99.0 fL [facility] Monocytes (Bld) [#/Vol] 0.6 10*3/uL 0.0 - 0.9 10*3/uL [facility] Monocytes/100 WBC (Bld) 4.4 % Low 5.0 - 13.0 % [facility] Neutrophils (Bld) [#/Vol] 11.6 10*3/uL High 1.8 - 7.5 10*3/uL [facility] Neutrophils/100 WBC (Bld) 81.9 % 38.0 - 82.0 % [facility] Nucleated RBC/100 WBC (Bld) [Ratio] 0 % [facility] Platelet mean volume (Bld) [Entitic vol] 10 fL 9.0 - 12.7 fL [facility] Platelets (Bld) [#/Vol] 327 10*3/uL 140 - 440 10*3/uL [facility] RBC (Bld) [#/Vol] 2.14 10*6/uL Low 3.80 - 5.2 0 10*6/uL [facility] WBC (Bld) [#/Vol] 14.2 10*3/uL High 3.6 - 10.7 10*3/uL [facility] Guidance for embolization of Vesselson 01-24-2024 [...] a permanent image was stored. A 5 Israeli short sheath was placed. Vessel accessed: Left [...] Signed Date/Time: 01/24/2024 5:35 PM EDT [facility] [employer] [facility] Patient Name: APOORVA GONZALEZ : 1950 [...] the splenic flexure. Complications: No immediate complications. [facility] Jovan Glynn MD - 01/24/2024 Patient [...] a permanent image was stored. A 5 [place] short sheath was placed. Vessel accessed: Left [...] Electronically Signed Date/Time: 01/24/2024 5:35 PM EDT [facility] Radiology Study observation (narrative) [facility] Guidance for embolization of VesselsOrdered By: Jovan Glynn on 01-24-2024 [facility] Work Phone: Hemoglobin (Bld) [Mass/Vol]o n 01-24-2024 Hematocrit (Bld) [Volume fraction] 23.7 % Low 35.0 - 47.0 % [facility] Interpretation and review of laboratory results Abnormal [facility] Hemoglobin (Bld) [Mass/Vol]O rdered By: Ct Hays on 01-24-2024 Hematocrit (Bld) [Volume fraction] 23 % Low 35.0 - 47.0 % [facility] Interpretation and review of laboratory results Abnormal [facility] Laboratory - Chemistry and C hemistry - challengeon 01-24-2024 Magnesium [Mass/Vol] 2 mg/dL 1.6 - 2 .3 mg/dL [facility] Laboratory - Hematology and Cell countson 01-24-2024 Hemoglobin (Bld) [Mass/Vol] 7.7 g/dL Low 11.7 - 16.0 g/dL [facility] Laboratory - Hematology and Cell countsOrdered By: Ct Hays on 01-24-2024 Hemoglobin (Bld) [Mass/Vol] 7.7 g/dL Low 11.7 - 16.0 g/dL [facility] Magnesium [Mass/Vol]on 01-23 Interpretation and review of laboratory results Normal [facility] Gastrointestinal tract Vi ews for gastrointestinal bleedingon 01-24-2024 Findings consistent with active gastrointestinal hemorrhage, which appears to originate from the colon near the splenic flexure. Report Dictated on Electronically Signed By: Veronica Monsivais MD Electronically Signed Date/Time: 01/24/2024 2:[address] [facility] Patient Name: APOORVA GONZALEZ : 1950 [...] the liver, spleen, and large intra-abdominal vessels. [facility] Veronica Monsivais MD - 01/24/2024 Patient Name: [...] Electronically Signed Date/Time: 01/24/2024 2:58 PM EDT [facility] Radiology Study observation (narrative) [facility] [place] Gastrointestinal tract Vi ews for gastrointestinal bleedingOrdered By: Veronica Monsivais on 01-24-2024 [facility] No Panel Informationon 01-23 Blood Expiration Date [id number] S [facility] Crossmatch interpretation COMP [facility] Dispense Status Transfused [facility] [employer] Product Blood Type 5100 [facility] [employer] PRODUCT CODE [id number] [facility] Unit ABO O [facility] Unit Number [id number] [facility] Unit RH Positive [facility] Unit Volume 300 mL [facility] Phosphate [Moles/Vol]on 01-04 Interpretation and review of laboratory results Abnormal [facility] Phosphate [Mass/Vol] 5 mg/dL High 2.5 - 4 .5 mg/dL [facility] Basic metabolic 1998 panelOr dered By: Gracie Wooten on 01-23-2024 Anion gap [Moles/Vol] 5 mmol/L 3 - 13 mmol/L [facility] Calcium [Mass/Vol] 7.6 mg/dL Low 8.4 - 10. 4 mg/dL [facility] Chloride [Moles/Vol] 101 mmol/L 98 - 10 7 mmol/L [facility] CO2 [Moles/Vol] 30 mmol/L 22 - 30 mmol/L [facility] Creatinine [Mass/Vol] 4.86 mg/dL High 0.52 - 1.04 mg/dL [facility] GFR/1.73 sq M.predicted (S/P/Bld) [Vol rate/Area] 8.9 mL/min Low - PINF [facility] Comment on above: Calculation based on the Chronic Kidney Disease Epidemiology Collaboration (CKD-EPI) equation refit without adjustment for race Glucose [Mass/Vol] 107 mg/dL High 70 - 100 mg/dL [facility] Interpretation and review of laboratory results Abnormal [facility] Potassium [Moles/Vol] 4.4 mmol/L 3.5 - 5.1 mmol/L [facility] Sodium [Moles/Vol] 136 mmol/L 135 - 145 mmol/L [facility] Urea nitrogen [Mass/Vol] 26 mg/dL High 7 - 17 mg/dL [facility] CBC W Auto Differential pane l (Bld)on 01-23-2024 Basophils (Bld) [#/Vol] 0.1 10*3/uL 0.0 - 0.2 10*3/uL [facility] Basophils/100 WBC (Bld) 0.7 % 0.0 - 2.0 % [facility] Eosinophils (Bld) [#/Vol] 0.4 10*3/uL 0.0 - 0.5 10*3/uL [facility] Eosinophils/100 WBC (Bld) 3.1 % 0.0 - 6.0 % [facility] Erythrocyte distribution width (RBC) [Ratio] 16 % High 11.5 - 15.0 % [facility] Hematocrit (Bld) [Volume fraction] 24.7 % Low 35.0 - 47.0 % [facility] Hemoglobin (Bld) [Mass/Vol] 8 g/dL Low 11.7 - 16.0 g/dL [facility] Immature granulocytes (Bld) [#/Vol] 0.1 10*3/uL High NINF - 0.1 10*3/uL [facility] Immature granulocytes/100 WBC (Bld) 0.7 % 0.0 - 2.0 % [facility] Interpretation and review of laboratory results Abnormal [facility] Lymphocytes (Bld) [#/Vol] 1.6 10*3/uL 1.0 - 4.3 10*3/uL [facility] Lymphocytes/100 WBC (Bld) 11.5 % Low 15.0 - 45.0 % [facility] MCH (RBC) [Entitic mass] 29.6 pg 26.0 - 34.0 pg [facility] MCHC (RBC) [Mass/Vol] 32.4 % 30.5 - 36.0 % [facility] MCV (RBC) [Entitic vol] 91.5 fL 77.0 - 99.0 fL [facility] Monocytes (Bld) [#/Vol] 0.9 10*3/uL 0.0 - 0.9 10*3/uL [facility] Monocytes/100 WBC (Bld) 6.4 % 5.0 - 13.0 % [facility] Neutrophils (Bld) [#/Vol] 10.7 10*3/uL High 1.8 - 7.5 10*3/uL [facility] Neutrophils/100 WBC (Bld) 77.6 % 38.0 - 82.0 % [facility] Nucleated RBC/100 WBC (Bld) [Ratio] 0 % [facility] Platelet mean volume (Bld) [Entitic vol] 10 fL 9.0 - 12.7 fL [facility] Platelets (Bld) [#/Vol] 325 10*3/uL 140 - 440 10*3/uL [facility] RBC (Bld) [#/Vol] 2.7 10*6/uL Low 3.80 - 5.2 0 10*6/uL [facility] WBC (Bld) [#/Vol] 13.8 10*3/uL High 3.6 - 10.7 10*3/uL [facility] Laboratory - Chemistry and C hemistry - challengeon 01-23-2024 Glucose [Mass/Vol] 87 mg/dL 70 - 100 mg/dL [facility] Magnesium [Mass/Vol] 2.1 mg/dL 1.6 - 2 .3 mg/dL [facility] No Panel Informationon 01-22 Interpretation and review of laboratory results Normal [facility] Performed by: [facility], [address] [place] [address] CLIA ID: [id number] [facility] Interpretation and review of laboratory results Normal [facility] Phosphate [Moles/Vol]on 01-04 Phosphate [Mass/Vol] 4.3 mg/dL 2.5 - 4 .5 mg/dL [facility] Basic metabolic 1998 panelOr dered By: Christiano Weinberg on 01-22-2024 Anion gap [Moles/Vol] 9 mmol/L 3 - 13 mmol/L [facility] Calcium [Mass/Vol] 6.7 mg/dL Low 8.4 - 10. 4 mg/dL [facility] Chloride [Moles/Vol] 102 mmol/L 98 - 10 7 mmol/L [facility] CO2 [Moles/Vol] 21 mmol/L Low 22 - 30 mmol/L [facility] Creatinine [Mass/Vol] 7.66 mg/dL High 0.52 - 1.04 mg/dL [facility] GFR/1.73 sq M.predicted (S/P/Bld) [Vol rate/Area] 5.2 mL/min Low - PINF [facility] Comment on above: Calculation based on the Chronic Kidney Disease Epidemiology Collaboration (CKD-EPI) equation refit without adjustment for race Glucose [Mass/Vol] 78 mg/dL 70 - 100 mg/dL [facility] Interpretation and review of laboratory results Abnormal [facility] [employer] [employer] Potassium [Moles/Vol] 4.8 mmol/L 3.5 - 5.1 mmol/L [facility] Sodium [Moles/Vol] 133 mmol/L Low 135 - 145 mmol/L [facility] Urea nitrogen [Mass/Vol] 49 mg/dL High 7 - 17 mg/dL [facility] CBC W Auto Differential pane l (Bld)on 01-22-2024 Basophils (Bld) [#/Vol] 0.1 10*3/uL 0.0 - 0.2 10*3/uL [facility] Basophils/100 WBC (Bld) 0.5 % 0.0 - 2.0 % [facility] Eosinophils (Bld) [#/Vol] 0.5 10*3/uL 0.0 - 0.5 10*3/uL [facility] Eosinophils/100 WBC (Bld) 2.5 % 0.0 - 6.0 % [facility] Erythrocyte distribution width (RBC) [Ratio] 16.8 % High 11.5 - 15.0 % [facility] Hematocrit (Bld) [Volume fraction] 24.3 % Low 35.0 - 47.0 % [facility] Hemoglobin (Bld) [Mass/Vol] 8 g/dL Low 11.7 - 16.0 g/dL [facility] [employer] Immature granulocytes (Bld) [#/Vol] 0.1 10*3/uL High NINF - 0.1 10*3/uL [facility] Immature granulocytes/100 WBC (Bld) 0.6 % 0.0 - 2.0 % [facility] Interpretation and review of laboratory results Abnormal [facility] Lymphocytes (Bld) [#/Vol] 2.4 10*3/uL 1.0 - 4.3 10*3/uL [facility] Lymphocytes/100 WBC (Bld) 13.4 % Low 15.0 - 45.0 % [facility] MCH (RBC) [Entitic mass] 29.5 pg 26.0 - 34.0 pg [facility] MCHC (RBC) [Mass/Vol] 32.9 % 30.5 - 36.0 % [facility] MCV (RBC) [Entitic vol] 89.7 fL 77.0 - 99.0 fL [facility] Monocytes (Bld) [#/Vol] 1.3 10*3/uL High 0.0 - 0.9 10*3/uL [facility] Monocytes/100 WBC (Bld) 7.1 % 5.0 - 13.0 % [facility] Neutrophils (Bld) [#/Vol] 13.4 10*3/uL High 1.8 - 7.5 10*3/uL [facility] Neutrophils/100 WBC (Bld) 75.9 % 38.0 - 82.0 % [facility] Nucleated RBC/100 WBC (Bld) [Ratio] 0 % [facility] Platelet mean volume (Bld) [Entitic vol] 10.4 fL 9.0 - 12.7 fL [facility] Platelets (Bld) [#/Vol] 292 10*3/uL 140 - 440 10*3/uL [facility] RBC (Bld) [#/Vol] 2.71 10*6/uL Low 3.80 - 5.2 0 10*6/uL [facility] WBC (Bld) [#/Vol] 17.7 10*3/uL High 3.6 - 10.7 10*3/uL [facility] HBV surface Ab IA Qnon 01-21 Interpretation: <8.0 Non-Reactive 8.0-11.9 Equivocal >= 12.0 Ab Detected Note: If an equivocal result is interpreted, an antibody status is unable to be determined. Collect new specimen if clinically indicated. [facility] HBV surface Ag IA Qlon 01-21 Interpretation and review of laboratory results Normal [facility] Laboratory - Chemistry and C hemistry - challengeon 01-22-2024 Magnesium [Mass/Vol] 2.2 mg/dL 1.6 - 2 .3 mg/dL [facility] Laboratory - Microbiology an d Antimicrobial susceptibilityon 01-22-2024 HBV surface Ab IA Qn mIU/mL [facility] HBV surface Ag IA Ql Not detected Not Detected [facility] Magnesium [Mass/Vol]on 01-21 Interpretation and review of laboratory results Normal [facility] No Panel Informationon 01-21 [facility] Phosphate [Moles/Vol]on 01-03 Interpretation and review of laboratory results Abnormal [facility] Phosphate [Mass/Vol] 5.5 mg/dL High 2.5 - 4 .5 mg/dL [facility] Basic metabolic 1998 panelOr dered By: Handy Jarvis on 01-21-2024 Anion gap [Moles/Vol] 9 mmol/L 3 - 13 mmol/L [facility] Calcium [Mass/Vol] 7.4 mg/dL Low 8.4 - 10. 4 mg/dL [facility] Chloride [Moles/Vol] 100 mmol/L 98 - 10 7 mmol/L [facility] CO2 [Moles/Vol] 26 mmol/L 22 - 30 mmol/L [facility] Creatinine [Mass/Vol] 4.74 mg/dL High 0.52 - 1.04 mg/dL [facility] GFR/1.73 sq M.predicted (S/P/Bld) [Vol rate/Area] 9.2 mL/min Low - PINF [facility] Comment on above: Calculation based on the Chronic Kidney Disease Epidemiology Collaboration (CKD-EPI) equation refit without adjustment for race Glucose [Mass/Vol] 85 mg/dL 70 - 100 mg/dL [facility] Interpretation and review of laboratory results Abnormal [facility] Potassium [Moles/Vol] 4.5 mmol/L 3.5 - 5.1 mmol/L [facility] Sodium [Moles/Vol] 135 mmol/L 135 - 145 mmol/L [facility] Urea nitrogen [Mass/Vol] 26 mg/dL High 7 - 17 mg/dL [facility] CBC W Auto Differential pane l (Bld)on 01-21-2024 Basophils (Bld) [#/Vol] 0.1 10*3/uL 0.0 - 0.2 10*3/uL [facility] Basophils/100 WBC (Bld) 0.6 % 0.0 - 2.0 % [facility] Eosinophils (Bld) [#/Vol] 0.1 10*3/uL 0.0 - 0.5 10*3/uL [facility] Eosinophils/100 WBC (Bld) 0.6 % 0.0 - 6.0 % [facility] Erythrocyte distribution width (RBC) [Ratio] 16.4 % High 11.5 - 15.0 % [facility] Hematocrit (Bld) [Volume fraction] 21 % Low 35.0 - 47.0 % [facility] Hemoglobin (Bld) [Mass/Vol] 7 g/dL Low 11.7 - 16.0 g/dL [facility] Immature granulocytes (Bld) [#/Vol] 0.2 10*3/uL High NINF - 0.1 10*3/uL [facility] Immature granulocytes/100 WBC (Bld) 0.7 % 0.0 - 2.0 % [facility] Interpretation and review of laboratory results Abnormal [facility] Lymphocytes (Bld) [#/Vol] 2.8 10*3/uL 1.0 - 4.3 10*3/uL [facility] Lymphocytes/100 WBC (Bld) 12.4 % Low 15.0 - 45.0 % [facility] MCH (RBC) [Entitic mass] 30.2 pg 26.0 - 34.0 pg [facility] MCHC (RBC) [Mass/Vol] 33.3 % 30.5 - 36.0 % [facility] MCV (RBC) [Entitic vol] 90.5 fL 77.0 - 99.0 fL [facility] Monocytes (Bld) [#/Vol] 1.2 10*3/uL High 0.0 - 0.9 10*3/uL [facility] Monocytes/100 WBC (Bld) 5.4 % 5.0 - 13.0 % [facility] Neutrophils (Bld) [#/Vol] 18.3 10*3/uL High 1.8 - 7.5 10*3/uL [facility] Neutrophils/100 WBC (Bld) 80.3 % 38.0 - 82.0 % [facility] Nucleated RBC/100 WBC (Bld) [Ratio] 0 % [facility] Platelet mean volume (Bld) [Entitic vol] 10.5 fL 9.0 - 12.7 fL [facility] Platelets (Bld) [#/Vol] 268 10*3/uL 140 - 440 10*3/uL [facility] RBC (Bld) [#/Vol] 2.32 10*6/uL Low 3.80 - 5.2 0 10*6/uL [facility] WBC (Bld) [#/Vol] 22.8 10*3/uL High 3.6 - 10.7 10*3/uL [facility] Hemoglobin (Bld) [Mass/Vol]o n 01-21-2024 Hematocrit (Bld) [Volume fraction] 24.9 % Low 35.0 - 47.0 % [facility] Interpretation and review of laboratory results Abnormal [facility] Hemoglobin (Bld) [Mass/Vol]O rdered By: Shauna Ayon on 01-21-2024 Hematocrit (Bld) [Volume fraction] 20.4 % Low 35.0 - 47.0 % [facility] Interpretation and review of laboratory results Abnormal [facility] Laboratory - Chemistry and C hemistry - challengeon 01-21-2024 Magnesium [Mass/Vol] 2 mg/dL 1.6 - 2 .3 mg/dL [facility] Laboratory - Hematology and Cell countson 01-21-2024 Hemoglobin (Bld) [Mass/Vol] 8.2 g/dL Low 11.7 - 16.0 g/dL [facility] Laboratory - Hematology and Cell countsOrdered By: Shauna Ayon on 01-21-2024 Hemoglobin (Bld) [Mass/Vol] 6.8 g/dL Critically low 11.7 - 16.0 g/dL [facility] Magnesium [Mass/Vol]on 01-20 Interpretation and review of laboratory results Normal [facility] No Panel Informationon 01-20 Blood Expiration Date [id number] S [facility] Crossmatch interpretation COMP [facility] Dispense Status Transfused [facility] [employer] Product Blood Type 5100 [facility] PRODUCT CODE [id number] [facility] Unit ABO O [facility] Unit Number [id number] [facility] RH Positive [facility] Unit Volume 300 mL [facility] Phosphate [Moles/Vol]on 01-03 Interpretation and review of laboratory results Abnormal [facility] Phosphate [Mass/Vol] 6.4 mg/dL High 2.5 - 4 .5 mg/dL [facility] Basic metabolic 1998 panelon 01-20-2024 Anion gap [Moles/Vol] 9 mmol/L 3 - 13 mmol/L [facility] Calcium [Mass/Vol] 7.2 mg/dL Low 8.4 - 10. 4 mg/dL [facility] [employer] Chloride [Moles/Vol] 97 mmol/L Low 98 - 10 7 mmol/L [facility] [employer] CO2 [Moles/Vol] 27 mmol/L 22 - 30 mmol/L [facility] [employer] Creatinine [Mass/Vol] 8.34 mg/dL High 0.52 - 1.04 mg/dL [facility] GFR/1.73 sq M.predicted (S/P/Bld) [Vol rate/Area] 4.7 mL/min Low - PINF [facility] Comment on above: Calculation based on the Chronic Kidney Disease Epidemiology Collaboration (CKD-EPI) equation refit without adjustment for race Glucose [Mass/Vol] 116 mg/dL High 70 - 100 mg/dL [facility] Interpretation and review of laboratory results Abnormal [facility] Potassium [Moles/Vol] 5.3 mmol/L High 3.5 - 5.1 mmol/L [facility] Sodium [Moles/Vol] 132 mmol/L Low 135 - 145 mmol/L [facility] Urea nitrogen [Mass/Vol] 50 mg/dL High 7 - 17 mg/dL [facility] CBC W Auto Differential pane l (Bld)on 01-20-2024 Basophils (Bld) [#/Vol] 0.1 10*3/uL 0.0 - 0.2 10*3/uL [facility] Basophils/100 WBC (Bld) 0.5 % 0.0 - 2.0 % [facility] Eosinophils (Bld) [#/Vol] 0 10*3/uL 0.0 - 0.5 10*3/uL [facility] Eosinophils/100 WBC (Bld) 0 % 0.0 - 6.0 % [facility] Erythrocyte distribution width (RBC) [Ratio] 15.6 % High 11.5 - 15.0 % [facility] Hematocrit (Bld) [Volume fraction] 24.9 % Low 35.0 - 47.0 % [facility] Hemoglobin (Bld) [Mass/Vol] 8.5 g/dL Low 11.7 - 16.0 g/dL [facility] Immature granulocytes (Bld) [#/Vol] 0.1 10*3/uL High NINF - 0.1 10*3/uL [facility] [employer] Immature granulocytes/100 WBC (Bld) 0.6 % 0.0 - 2.0 % [facility] Interpretation and review of laboratory results Abnormal [facility] Lymphocytes (Bld) [#/Vol] 2 10*3/uL 1.0 - 4.3 10*3/uL [facility] Lymphocytes/100 WBC (Bld) 10 % Low 15.0 - 45.0 % [facility] MCH (RBC) [Entitic mass] 30.5 pg 26.0 - 34.0 pg [facility] MCHC (RBC) [Mass/Vol] 34.1 % 30.5 - 36.0 % [facility] MCV (RBC) [Entitic vol] 89.2 fL 77.0 - 99.0 fL [facility] Monocytes (Bld) [#/Vol] 1.1 10*3/uL High 0.0 - 0.9 10*3/uL [facility] Monocytes/100 WBC (Bld) 5.4 % 5.0 - 13.0 % [facility] Neutrophils (Bld) [#/Vol] 16.8 10*3/uL High 1.8 - 7.5 10*3/uL [facility] Neutrophils/100 WBC (Bld) 83.5 % High 38.0 - 82.0 % [facility] Nucleated RBC/100 WBC (Bld) [Ratio] 0 % [facility] [employer] Platelet mean volume (Bld) [Entitic vol] 10.5 fL 9.0 - 12.7 fL [facility] Platelets (Bld) [#/Vol] 285 10*3/uL 140 - 440 10*3/uL [facility] RBC (Bld) [#/Vol] 2.79 10*6/uL Low 3.80 - 5.2 0 10*6/uL [facility] WBC (Bld) [#/Vol] 20.1 10*3/uL High 3.6 - 10.7 10*3/uL [facility] Hemoglobin (Bld) [Mass/Vol]O rdered By: Adrienne Bradshaw on 01-20-2024 Hematocrit (Bld) [Volume fraction] 24.7 % Low 35.0 - 47.0 % [facility] Interpretation and review of laboratory results Abnormal [facility] Hemoglobin (Bld) [Mass/Vol]o n 01-20-2024 Hematocrit (Bld) [Volume fraction] 21.3 % Low 35.0 - 47.0 % [facility] Interpretation and review of laboratory results Abnormal [facility] Hematocrit (Bld) [Volume fraction] 23.4 % Low 35.0 - 47.0 % [facility] Interpretation and review of laboratory results Abnormal [facility] Hemoglobin (Bld) [Mass/Vol]O rdered By: Andre Ervin on 01-20-2024 Hematocrit (Bld) [Volume fraction] 28.4 % Low 35.0 - 47.0 % [facility] Interpretation and review of laboratory results Abnormal [facility] Laboratory - Chemistry and C hemistry - challengeon 01-20-2024 Magnesium [Mass/Vol] 2 mg/dL 1.6 - 2 .3 mg/dL [facility] Laboratory - Hematology and Cell countsOrdered By: Adrienne Bradshaw on 01-20-2024 Hemoglobin (Bld) [Mass/Vol] 8.3 g/dL Low 11.7 - 16.0 g/dL [facility] Laboratory - Hematology and Cell countson 01-20-2024 Hemoglobin (Bld) [Mass/Vol] 7.3 g/dL Low 11.7 - 16.0 g/dL [facility] Hemoglobin (Bld) [Mass/Vol] 7.9 g/dL Low 11.7 - 16.0 g/dL [facility] Laboratory - Hematology and Cell countsOrdered By: Andre Ervin on 01-20-2024 Hemoglobin (Bld) [Mass/Vol] 9.5 g/dL Low 11.7 - 16.0 g/dL [facility] Magnesium [Mass/Vol]on 01-19 Interpretation and review of laboratory results Normal [facility] No Panel InformationOrdered By: Candis Andrade on 01-20-2024 [facility] [employer] Work Phone: No Panel InformationOrdered By: Link Alaniz on 01-20-2024 P [place] 88 degrees [facility] Work Phone: [place] Interval 124 ms [employer] Work Phone: QRS [place] 33 degrees [employer] Work Phone: QRSD Interval 76 ms [employer] Work Phone: QT Interval 348 ms [employer] Work Phone: QTC Interval 455 ms [employer] Work Phone: T Wave [place] 60 degrees [employer] Work Phone: [phone] [employer] Work Phone: No Panel Informationon 01-19 Sinus tachycardia Consider left ventricular hypertrophy Electronically Signed On 01-20-2024 08:04:49 EDT by Link Wang MD - 01/20/2024 IMPRESSION: Sinus tachycardia Consider left ventricular hypertrophy Electronically Signed On 01-20-2024 08:04:49 EDT by Link Alaniz [employer] No acute abnormality . Report Dictated on Electronically Signed By: Honorio Grande MD Electronically Signed Date/Time: 01/20/2024 8:[address] [facility] Patient Name: APOORVA GONZALEZ : 1950 [...] clips also noted in the antecubital fossa.. [facility] Honorio Grande MD - 01/20/2024 Patient Name: APOORVA GONZALEZ [...] Electronically Signed Date/Time: 01/20/2024 8:00 AM EDT [facility] Radiology Study observation (narrative) [facility] Phosphate [Moles/Vol]on 01-03 Interpretation and review of laboratory results Abnormal [facility] Phosphate [Mass/Vol] 6.4 mg/dL High 2.5 - 4 .5 mg/dL [facility] RFA Celiac artery Views W co ntrast IAon 01-20-2024 Successful uncomplicated mesenteric arteriogram. Report Dictated on Electronically Signed By: Robson Andrade MD Electronically Signed Date/Time: 01/20/2024 9:37 AM EDT [employer] Patient Name: APOORVA GONZALEZ : 1950 [...] head. Access was upsized to a 5 Israeli vascular sheath. Following this, a 0.035 Bentson [...] No intervention was performed at this time. [facility] Candis Andrade MD - 01/20/2024 [facility] 1950 [id number] Exam Date/Time: 01/19/2024 23:19 Procedure: IR ANGIOGRAM [...] head. Access was upsized to a 5 [place] vascular sheath. Following this, a 0.035 Bentson wire along with a [employer] one catheter were advanced into the thoracic [...] Electronically Signed Date/Time: 01/20/2024 9:37 AM EDT [employer] Vital signsOrdered By: Link darden on 01-20-2024 Heart rate 103 /min bpm [employer] Work Phone: Blood type and Crossmatch pa kojo (Bld)on 01-19-2024 ABO group Nom (Bld) O [facility] Blood group antibody screen GEL Ql Negative [facility] D Ag Ql (RBC) Positive [facility] CBC W Auto Differential pane l (Bld)on 01-19-2024 Basophils (Bld) [#/Vol] 0.1 10*3/uL 0.0 - 0.2 10*3/uL [facility] Basophils/100 WBC (Bld) 0.6 % 0.0 - 2.0 % [facility] Eosinophils (Bld) [#/Vol] 0.1 10*3/uL 0.0 - 0.5 10*3/uL [facility] Eosinophils/100 WBC (Bld) 0.4 % 0.0 - 6.0 % [facility] Erythrocyte distribution width (RBC) [Ratio] 16.7 % High 11.5 - 15.0 % [facility] Hematocrit (Bld) [Volume fraction] 24.4 % Low 35.0 - 47.0 % [facility] Hemoglobin (Bld) [Mass/Vol] 7.7 g/dL Low 11.7 - 16.0 g/dL [facility] Immature granulocytes (Bld) [#/Vol] 0.1 10*3/uL High NINF - 0.1 10*3/uL [facility] Immature granulocytes/100 WBC (Bld) 0.4 % 0.0 - 2.0 % [facility] Interpretation and review of laboratory results Abnormal [facility] IPF 2 [facility] Lymphocytes (Bld) [#/Vol] 1.8 10*3/uL 1.0 - 4.3 10*3/uL [facility] Lymphocytes/100 WBC (Bld) 11.1 % Low 15.0 - 45.0 % [facility] MCH (RBC) [Entitic mass] 29.5 pg 26.0 - 34.0 pg [facility] MCHC (RBC) [Mass/Vol] 31.6 % 30.5 - 36.0 % [facility] MCV (RBC) [Entitic vol] 93.5 fL 77.0 - 99.0 fL [facility] Monocytes (Bld) [#/Vol] 1.1 10*3/uL High 0.0 - 0.9 10*3/uL [facility] Monocytes/100 WBC (Bld) 6.9 % 5.0 - 13.0 % [facility] [employer] Neutrophils (Bld) [#/Vol] 12.8 10*3/uL High 1.8 - 7.5 10*3/uL [facility] [employer] Neutrophils/100 WBC (Bld) 80.6 % 38.0 - 82.0 % [facility] [employer] Nucleated RBC/100 WBC (Bld) [Ratio] 0 % [facility] [employer] Platelet mean volume (Bld) [Entitic vol] 10.7 fL 9.0 - 12.7 fL [facility] [employer] Platelets (Bld) [#/Vol] 465 10*3/uL High 140 - 440 10*3/uL [facility] [employer] RBC (Bld) [#/Vol] 2.61 10*6/uL Low 3.80 - 5.2 0 10*6/uL [facility] [employer] WBC (Bld) [#/Vol] 15.9 10*3/uL High 3.6 - 10.7 10*3/uL [facility] CT Abdomen and Pelvis W cont rast Indu 01-19-2024 Descending colon active bleeding. An element of diverticulitis possible. DTR Dr Kaur Report Dictated on Electronically Signed By: Jacob Alcaraz MD Electronically Signed Date/Time: 01/19/2024 7:31 PM EDT [employer] [facility] Name: [facility]Z [facility] 1950 [id number] Exam Date/Time: 01/19/2024 19:20 Procedure: CT ABDOMEN [...] There is extravasation into the ascending colon. [employer] Jacob Alcaraz MD - 01/19/2024 Patient Name: [facility]OOR[facility]ALEZ [facility] 1950 [id number] Exam Date/Time: 01/19/2024 19:20 Procedure: CT ABDOMEN [...] Electronically Signed Date/Time: 01/19/2024 7:31 PM EDT [facility] Radiology Study observation (narrative) [facility] [employer] CT Abdomen and Pelvis W cont rast IVOrdered By: Jacob Alcaraz on 01-19-2024 [facility] [employer] Work Phone: Comprehensive metabolic 1998 panelon 01-19-2024 Albumin [Mass/Vol] 4 g/dL 3.5 - 5.0 g/dL [facility] ALP [Catalytic activity/Vol] 88 U/L 38 - 126 U/L [facility] ALT [Catalytic activity/Vol] 14 U/L 0 - 34 U/L [facility] Anion gap [Moles/Vol] 13 mmol/L 3 - 13 mmol/L [facility] AST [Catalytic activity/Vol] 23 U/L 15 - 46 U/L [facility] Bilirubin [Mass/Vol] 0.5 mg/dL 0.2 - 1 .3 mg/dL [facility] Calcium [Mass/Vol] 8.7 mg/dL 8.4 - 10. 4 mg/dL [facility] Chloride [Moles/Vol] 92 mmol/L Low 98 - 10 7 mmol/L [facility] CO2 [Moles/Vol] 30 mmol/L 22 - 30 mmol/L [facility] Creatinine [Mass/Vol] 7.7 mg/dL High 0.52 - 1.04 mg/dL [facility] GFR/1.73 sq M.predicted (S/P/Bld) [Vol rate/Area] 5.1 mL/min Low - PINF [facility] Comment on above: Calculation based on the Chronic Kidney Disease Epidemiology Collaboration (CKD-EPI) equation refit without adjustment for race Glucose [Mass/Vol] 146 mg/dL High 70 - 100 mg/dL [facility] Interpretation and review of laboratory results Abnormal [facility] Potassium [Moles/Vol] 4.9 mmol/L 3.5 - 5.1 mmol/L [facility] Protein [Mass/Vol] 7 g/dL 6.3 - 8.2 g/dL [facility] Sodium [Moles/Vol] 135 mmol/L 135 - 145 mmol/L [facility] Urea nitrogen [Mass/Vol] 47 mg/dL High 7 - 17 mg/dL [facility] Laboratory - Chemistry and C hemistry - challengeon 01-19-2024 Troponin I.cardiac [Mass/Vol] ng/mL NINF - 0.034 ng/mL [facility] Laboratory - Coagulationon 1 aPTT Coag (PPP) [Time] 22.2 s 20.0 - 30.5 s [facility] INR Coag (PPP) [Relative time] 1 {INR} 0.9 - 1.1 [facility] Comment on above: Recommended Anticoag ulant Therapy: [...] s 9.0 - 12.0 s [facility] No Panel Informationon 01-18 Blood Expiration Date [id number] S [facility] Crossmatch interpretation COMP [facility] Dispense Status Transfused [facility] Product Blood Type 5100 [facility] PRODUCT CODE [id number] [facility] Unit ABO O [facility] Unit Number [id number] [facility] Unit Number [id number] [facility] Unit RH Positive [facility] Unit Volume 300 mL [facility] Interpretation and review of laboratory results Normal [facility] RFA Celiac artery Views W co ntrast IAon 01-19-2024 Radiology Study observation (narrative) [facility] Troponin I.cardiac [Mass/Vol ]on 01-19-2024 Interpretation and review of laboratory results Normal [facility] Patients with high levels of Biotin oral intake (ie >5 mg/day) may have falsely decreased Troponin levels. [facility] Renal function 2000 panelOrd ered By: Cathy Salinas on 08-09-2023 Albumin [Mass/Vol] 4.8 g/dL 3.5 - 5.0 g/dL [facility] Anion gap [Moles/Vol] 15 mmol/L High 3 - 13 mmol/L [facility] Calcium [Mass/Vol] 9.5 mg/dL 8.4 - 10. 4 mg/dL [facility] Chloride [Moles/Vol] 99 mmol/L 98 - 10 7 mmol/L [facility] CO2 [Moles/Vol] 21 mmol/L Low 22 - 30 mmol/L [facility] Creatinine [Mass/Vol] 9.07 mg/dL High 0.52 - 1.04 mg/dL [facility] GFR/1.73 sq M.predicted MDRD (S/P/Bld) [Vol rate/Area] 4.2 mL/min/{1.73_m2} Low - PINF [facility] Comment on above: Calculation based on the Chronic Kidney Disease Epidemiology Collaboration (CKD-EPI) equation refit without adjustment for race Glucose [Mass/Vol] 91 mg/dL 70 - 100 mg/dL [facility] Interpretation and review of laboratory results Abnormal [facility] Phosphate [Mass/Vol] 6.9 mg/dL High 2.5 - 4 .5 mg/dL [facility] Potassium [Moles/Vol] 6.1 mmol/L Critically high 3.5 - 5.1 mmol/L [facility] Sodium [Moles/Vol] 135 mmol/L 135 - 145 mmol/L [facility] Urea nitrogen [Mass/Vol] 65 mg/dL High 7 - 17 mg/dL [facility] Basic metabolic 1998 panelon 03-03-2023 Anion gap [Moles/Vol] 15 mmol/L High 3 - 13 mmol/L [facility] Calcium [Mass/Vol] 9.4 mg/dL 8.4 - 10. 4 mg/dL [facility] Chloride [Moles/Vol] 91 mmol/L Low 98 - 10 7 mmol/L [facility] CO2 [Moles/Vol] 28 mmol/L 22 - 30 mmol/L [facility] Creatinine [Mass/Vol] 6.25 mg/dL High 0.52 - 1.04 mg/dL [facility] GFR/1.73 sq M.predicted MDRD (S/P/Bld) [Vol rate/Area] 6.7 mL/min/{1.73_m2} Low - PINF [facility] Comment on above: Calculation based on the Chronic Kidney Disease Epidemiology Collaboration (CKD-EPI) equation refit without adjustment for race Glucose [Mass/Vol] 89 mg/dL 70 - 100 mg/dL [facility] Interpretation and review of laboratory results Abnormal [facility] Potassium [Moles/Vol] 4.3 mmol/L 3.5 - 5.1 mmol/L [facility] Sodium [Moles/Vol] 135 mmol/L 135 - 145 mmol/L [facility] Urea nitrogen [Mass/Vol] 33 mg/dL High 7 - 17 mg/dL [facility] CBC W Auto Differential pane l (Bld)Ordered By: Rudy Jacobs on 03-03-2023 Basophils (Bld) [#/Vol] 0.1 10*3/uL 0.0 - 0.2 10*3/uL [facility] Basophils/100 WBC (Bld) 1.4 % 0.0 - 2.0 % [facility] Eosinophils (Bld) [#/Vol] 0.3 10*3/uL 0.0 - 0.5 10*3/uL [facility] Eosinophils/100 WBC (Bld) 4.0 % 1.0 - 6.0 % [facility] Erythrocyte distribution width (RBC) [Ratio] 15.7 % High 11.5 - 14.5 % [facility] Hematocrit (Bld) [Volume fraction] 32.3 % Low 35.0 - 47.0 % [facility] Hemoglobin (Bld) [Mass/Vol] 10.6 g/dL Low 11.7 - 16.0 g/dL [facility] Interpretation and review of laboratory results Abnormal [facility] Lymphocytes (Bld) [#/Vol] 2.2 10*3/uL 1.0 - 4.3 10*3/uL [facility] Lymphocytes/100 WBC (Bld) 25.4 % 20.0 - 40.0 % [facility] MCH (RBC) [Entitic mass] 31.6 pg 26.0 - 34.0 pg [facility] MCHC (RBC) [Mass/Vol] 32.7 % 32.0 - 36.0 % [facility] MCV (RBC) [Entitic vol] 96.7 fL 80.0 - 98.0 fL [facility] Monocytes (Bld) [#/Vol] 0.8 10*3/uL 0.0 - 0.8 10*3/uL [facility] Monocytes/100 WBC (Bld) 8.8 % 2.0 - 10.0 % [facility] Neutrophils (Bld) [#/Vol] 5.2 10*3/uL 1.8 - 7.0 10*3/uL [facility] Neutrophils/100 WBC (Bld) 60.4 % 40.0 - 80.0 % [facility] Nucleated RBC/100 WBC (Bld) [Ratio] 0.0 % [facility] Platelet mean volume (Bld) [Entitic vol] 7.8 fL 7.4 - 12.4 fL [facility] Platelets (Bld) [#/Vol] 351 10*3/uL 140 - 440 10*3/uL [facility] RBC (Bld) [#/Vol] 3.34 10*6/uL Low 3.8 - 5.20 10*6/uL [facility] WBC (Bld) [#/Vol] 8.6 10*3/uL 3.6 - 10.7 10*3/uL [facility] No Panel Informationon 03-03 P [place] 56 degrees [facility] [place] Interval 118 ms [facility] QRS [place] 13 degrees [facility] QRSD Interval 80 ms [facility] QT Interval 374 ms [facility] QTC Interval 454 ms [facility] [employer] T Wave [place] 57 degrees [facility] [employer] Sinus rhythm Left ventricular hypertrophy Normal [place] No ST or T wave changes No significant changes compared to previous Electronically Signed On 03-03-2023 10:54:21 EST by Balta Wang CV Balta Solo MD - 03/03/2023 IMPRESSION: Sinus rhythm Left ventricular hypertrophy Normal [place] No ST or T wave changes No significant changes compared to previous Electronically Signed On 03-03-2023 10:54:21 EST by Balta Wang [facility] [employer] Troponin - One Time order ON [place] 03-03-2023 Troponin I.cardiac [Mass/Vol] ng/mL NINF - 0.034 ng/mL [facility] Troponin I.cardiac [Mass/Vol ]on 03-03-2023 Interpretation and review of laboratory results Normal [facility] Patients with high levels of Biotin oral intake (ie >5 mg/day) may have falsely decreased Troponin levels. [facility] [employer] [facility] [employer] Vital signson 03-03-2023 Heart rate 88 /min bpm [facility] [employer] DBT Breast - bilateral scree ningon 01-12-2023 [...] Electronically Signed Date/Time: 01/12/2023 11:[address] [facility] [employer] Patient Name: APOORVA GONZALEZ : 1950 [...] images: BB's = Nipples; skin lesions Open hughes = Palpable Line = Scar COMPARISON: 11/28/2020 and 09/03/2016 TISSUE DENSITY: BIRADS C - The breast tissue is heterogeneously dense, which could obscure underlying abnormalities. FINDINGS: No suspicious masses, architectural distortions or suspiciously clustered microcalcifications are identified. There is no evidence of skin thickening or nipple retraction. There are no significant changes when compared with prior studies. [facility] Nalini Márquez MD - 01/12/2023 [facility] 1950 [id number] Exam Date/Time: 01/12/2023 11:31 Procedure: BI MAMMOGRAM SCREENING TOMOSYNTHESIS BILATERAL Ordering Provider: GROVE BENSON Reason For Exam: Breast cancer screening, average or low risk (Female >= 18y) Image views: 2D Bilateral CC and MLO views were acquired. 3D Bilateral CC and MLO views were acquired. Images were reviewed with CAD. Markings on images: BB's = Nipples; skin lesions Open hughes = Palpable Line = Scar COMPARISON: 11/28/2020 [...] Electronically Signed Date/Time: 01/12/2023 11:44 AM EDT [employer] Radiology Study observation (narrative) [employer] DBT Breast - bilateral scree ningOrdered By: Nalini Márquez on 01-12-2023 [employer] Work Phone: XR Chest Single viewon 10-01 FINDINGS AND IMPRESSION: SUPPORT DEVICES: None OSSEOUS STRUCTURES: Unremarkable. HEART AND MEDIASTINUM: The cardiomediastinal silhouette appears unchanged from the prior exam. LUNGS AND PLEURA: The lungs are clear. No sizable pleural effusion. Report Dictated on Electronically Signed By: London Hollis Electronically Signed Date/Time: 10/01/2022 1:42 PM EDT [employer] Patient Name: APOORVA GONZALEZ : 1950 Exam Date/Time: 10/01/2022 13:12 Procedure: XR CHEST 1 VIEW Ordering Provider: HILARIO DAVID Reason For Exam: vasc cath pulled from right subclavian yesterday - bleeding today CHEST CLINICAL INDICATION: Hemorrhage, recent vascular catheter removal TECHNIQUE: AP portable chest COMPARISON: 02/26/2022 [facility] London Hollis MD - 10/01/2022 [...] Electronically Signed Date/Time: 10/01/2022 1:42 PM EDT [employer] Radiology Study observation (narrative) [employer] XR Chest Single viewOrdered By: London Hollis on 10-01-2022 [employer] Work Phone: RF Guidance for removal of [...] Electronically Signed Date/Time: 09/30/2022 11:26 AM EDT [employer] Patient Name: APOORVA GONZALEZ : 1950 Exam Date/Time: 09/30/2022 10:19 Procedure: IR CVC TUNNELED CATHETER REMOVAL Ordering Provider: MEZA OLGA Reason For Exam: n18.6 PROCEDURE: Tunneled central venous catheter removal Procedural Personnel Attending physician(s): Jovan Glynn MD Indication: Catheter no longer needed Additional clinical history: None Complications: No immediate complications. [facility] Jovan Glynn MD - 09/30/2022 Patient [...] Electronically Signed Date/Time: 09/30/2022 11:26 AM EDT [facility] Radiology Study observation (narrative) [facility] RF Guidance for removal of t unneled CV catheterOrdered By: Jovan Glynn on 09-30-2022 [facility] Work Phone: Laboratory - Chemistry and C hemistry - challengeon 08-07-2022 Potassium [Moles/Vol] 4.5 mmol/L 3.5 - 5.1 mmol/L [facility] Potassium [Moles/Vol]on Interpretation and review of laboratory results Normal [facility] US VEIN MAPPING UPPER BILon 06-03-2022 [...] EXTREMITY VEINS BILATERALLY WITH ASSOCIATED MEASUREMENTS DESCRIBED. [employer]: THU Transcribe Date/Time: Jun 04 2022 7:09A Dictated by : VICTOR MANUEL WRIGHT MD This examination was interpreted and the report reviewed and electronically signed by: VICTOR MANUEL WRIGHT MD on Jun 04 2022 7:17AM EST [id number] Normal [facility] CNCOon 09-11-2021 CNCO Letter Text Normal [facility] CNPNon 12-24-2020 CNPN Telephone (TXCTGL) APOORVA GONZALEZ ([id number]) 1950 F TRN Date Time Provider Department [...] Status:Closed by FRANKIE AGUILARGRETCHEN on 12/24/20 Normal [facility] MG Breast Tomosynthesis Scr Blon 11-28-2020 MG Breast Tomosynthesis Scr Bl Patient Name: APOORVA GONZALEZ Mammography ACCESSION EXAM DATE/TIME PROCEDURE ORDERING PROVIDER [id number] 11/28/2020 08:55 EDT MG Breast Tomosynthesis CHRISTIANO GROVE S BI Scr CPT code [id number] Reason For Exam (MG Breast Tomosynthesis BI [...] MG breast tomosynthesis bl scr performed at [facility]. TISSUE DENSITY: BIRADS C - [...] images: BB's = Nipples; skin lesions Open hughes = Palpable Line = Scar 2D digital [...] pm Signed by: [facility] Telephone (TXCTGL) APOORVA GONZALEZ ([id number]) 1950 F TRN Date Time Provider Department 09/24/20 MARY ELLIOTTCTGL During your visit today, we recorded the following information about you: Mary Elliott 09/24/2020 3:29 PM Signed Patient called and rescheduled for 01/01/21. Patient verbalized understanding. Mary Elliott Allergies As of Date: 09/24/2020 (No Known Allergies) Date Reviewed: 10/25/2019 Reviewed by: Jose Antonio Adams - Fully Assessed Reason for Visit: Future Appointment [256] Prescriptions as of 09/24/2020 Sig: AMLODIPINE 10 MG-ATORVASTATIN* Take 0.5 tablets by mouth onc* Problem List As Of Date: 09/24/2020 (None) Encounter Status:Closed by MARY ELLIOTT on 09/24/20 [facility] Deven 09-13-2020 CNPN Telephone (TXCTGL) APOORVA GONZALEZ ([id number]) 1950 F TRN Date Time Provider Department [...] GRETCHEN DAVID MA on 09/13/20 [facility] CT BIOPSY RENALon 10-25-2019 CT BIOPSY RENAL Final Report DATE OF EXAM: Oct 25 2019 9:26AM [facility] 2019 - CT BIOPSY RENAL / [...] administration of agent and ending when continuous [id number] time ends): Approximately 25 minutes Patient monitoring: [...] complicated by a small left perinephric hematoma. [employer]: THU Transcribe Date/Time: Oct 25 2019 10:19A Dictated by : JOSE ANTONIO ADAMS MD This examination was interpreted and the report reviewed and electronically signed by: JOSE ANTONIO ADAMS MD on Oct 25 2019 10:23AM EST Normal [facility] Otheron 10-25-2019 [facility] Pathology Miscellaneouson Pathology Miscellaneous Test performed a t [place] [address] NAME: APOORVA GONZALEZ REQUESTING: JOSE ANTONIO ADAMS MD DIAGNOSIS: Kidney: See complete report from [facility]. SPECIMEN: TISSUE FOR SEND-OUT, Medical Kidney EXTERNAL CONSULT, PATHOLOGIST (Electronic signature on file) Signed out: 11/02/2019 16:25 PRINTED: 11/02/2019 Page 1 of 1 Normal [facility] Comment on above: Performed By: #### M ISC #### [place] [address] Surgical Tissue Examon 10-24 Surgical Tissue Exam Test performed at [place] [address] NAME: APOORVA GONZALEZ REQUESTING: JOSE ANTONIO ADAMS MD COPY TO: CHRISTIANO GROVE FINAL DIAGNOSIS: LEFT KIDNEY, CORE BIOPSIES - [facility]ALU[facility]. PLEASE SEE THEIR SEPARATE [...] fixative, and glutaraldehyde and submitted directly to [facility] for further evaluation. EDS/sherry EXTERNAL CONSULT, PATHOLOGIST (Electronic signature on file) Signed out: 10/26/2019 08:26 PRINTED: 10/26/2019 Page 1 of 1 Normal [facility] Comment on above: Performed By: #### S URG #### [place] [address] Activated PTTon 10-03-2019 aPTT Coag (Bld) [Time] 27.1 s Normal 23.0-32.4 [facility] Comment on above: Result Comment: Unfr [...] laboratory APTT reagent in use throughout the [facility]. Performed By: #### A PTT #### [place] [id number] Hematologyon 10-03-2019 aPTT Coag (PPP) [Time] 27.1 s 23.0 - 32.4 sec [facility] INR Coag (PPP) [Relative time] 0.93 {INR} 0.90 - 1.30 [facility] PT Coag (PPP) [Time] 10.1 s 9.7 - 1 3.0 sec [facility] Hematocrit (Bld) [Volume fraction] 31.6 % Low 34.1 - 44.9 % [facility] Hemoglobin (Bld) [Mass/Vol] 9.9 g/dL Low 11.2 - 15.7 g/dL [facility] MCH (RBC) [Entitic mass] 28.9 pg 25.6 - 32.2 pg [facility] MCV (RBC) [Entitic vol] 92.1 fL 79.4 - 94.8 fl [facility] Platelets (Bld) [#/Vol] 502 thou/cmm High 182 - 369 thou/cmm [facility] RBC (Bld) [#/Vol] 3.43 mil/cmm Low 3.93 - 5.2 2 mil/cmm [facility] WBC (Bld) [#/Vol] 13.18 thou/cmm High 3.98 - 1 0.04 thou/cmm [facility] Hemogramon 10-03-2019 Erythrocyte distribution width (RBC) [Ratio] 13.5 % Normal 11.7-14.4 [facility] Comment on above: Performed By: #### C BC1 #### [facility] [address] [place], [place] [address] Hematocrit (Bld) [Volume fraction] 31.6 % Low 34.1-44.9 [facility] Comment on above: Performed By: #### C BC1 #### [facility] [address] [place], [place] [address] Hemoglobin (Bld) [Mass/Vol] 9.9 g/dL Low 11.2-15.7 [facility] Comment on above: Performed By: #### C BC1 #### [facility] [address] [place], [place] [address] MCH (RBC) [Entitic mass] 28.9 pg Normal 25.6-32.2 [facility] Comment on above: Performed By: #### C BC1 #### [facility] [address] [place], [place] [address] MCHC (RBC) [Mass/Vol] 31.3 % Low 31.6-34.8 [facility] Comment on above: Performed By: #### C BC1 #### [facility] [address] [place], [place] [address] MCV (RBC) [Entitic vol] 92.1 fL Normal 79.4-94.8 [facility] Comment on above: Performed By: #### C BC1 #### [facility] [address] [place], [place] [address] Platelet mean volume (Bld) [Entitic vol] 10.8 fL Normal 9.4-12.3 [facility] Comment on above: Performed By: #### C BC1 #### [facility] [address] [place], [place] [address] Platelets (Bld) [#/Vol] 502 thou/cmm High 182-369 [facility] Comment on above: Performed By: #### C BC1 #### [facility] [address] [place], [place] [address] RBC (Bld) [#/Vol] 3.43 mil/cmm Low 3.93-5.22 [facility] Comment on above: Performed By: #### C BC1 #### [facility] [address] [place], [place] [address] RDW SD 45.1 fl Normal 36.4-46.3 [facility] Comment on above: Performed By: #### C BC1 #### [facility] [address] [place], [place] [address] WBC (Bld) [#/Vol] 13.18 thou/cmm High 3.98-10.04 [facility] Comment on above: Performed By: #### C BC1 #### [facility] [address] [place] [address] Otheron 10-03-2019 Erythrocyte distribution width (RBC) [Entitic vol] 45.1 fL 36.4 - 46.3 fl [facility] Erythrocyte distribution width (RBC) [Ratio] 13.5 % 11.7 - 14.4 % [facility] MCHC (RBC) [Mass/Vol] 31.3 % Low 31.6 - 34.8 % [facility] Platelet mean volume (Bld) [Entitic vol] 10.8 fL 9.4 - 12.3 fl [facility] Protimeon 10-03-2019 INR Coag (PPP) [Relative time] 0.93 {INR} Normal 0.90-1.30 [facility] Comment on above: Result Comment: Haylee min K Antagonist (VKA) Therapeutic Range: INR 2 to 3 (Target INR of 2.5) Note: For patients treated with VKA drugs, such as warfarin, the [employer] 2012 Guideline recommends [...] Chest 2012; 141:7S-47S Joselyn RA, et al. [facility] 2017; 70: 252-289 Performed By: #### P T #### [facility] [address] [place], [place] [address] PT Coag (PPP) [Time] 10.1 s Normal 9.7-13.0 [facility] Comment on above: Performed By: #### P T #### [facility] [address] [place], [place] [address] US RETROPERITONEAL COMPLETEo n 07-24-2019 Patient Name: APOORVA GONZALEZ ---Ultrasound--- Exam Date/Time 07/24/2019 15:50:07 EDT Exam US Retroperitoneal Complete Ordering Physician CHRISTIANO GROVE Accession Number [id number] CPT4 Codes 09532 () Reason For Exam stage 4 kid [...] R Transcribed Date and Time: 07/24/2019 3:25 [place], [place] Incoming Radiology Results From [facility] - 07/24/2019 3:50 PM EDT Patient Name: APOORVA GONZALEZ ---Ultrasound--- Exam Date/Time 07/24/2019 15:50:07 EDT Exam US Retroperitoneal Complete Ordering Physician CHRISTIANO GROVE Accession Number [id number] CPT4 Codes 34054 () Reason For Exam stage 4 kid [...] R Transcribed Date and Time: 07/24/2019 3:25 [place] Vital Signs Date Time Vital Sign Value Performing Clinician Facility 12-28-2024 10:00-0400 Body temperature 98.71 [degF] Mejgon Natasha DO Work Phone: [facility] [employer] 12-28-2024 10:00-0400 Diastolic blood pressure 76 mm[Hg] Mejgon Natasha DO Work Phone: [facility] [employer] 12-28-2024 10:00-0400 Heart rate 91 /min jgon Natasha DO Work Phone: [facility] [employer] 12-28-2024 10:00-0400 Respiratory rate 14 /min Frankygon Natasha DO Work Phone: [facility] [employer] 12-28-2024 10:00-0400 SaO2% (BldA) [Mass fraction] 100 % Frankygon Natasha DO Work Phone: [facility] [employer] 12-28-2024 10:00-0400 Systolic blood pressure 162 mm[Hg] Mejgon Natasha DO Work Phone: [facility] [employer] 12-20-2024 17:50-0400 Body temperature 98.01 [degF] Mason Munson MD Work Phone: [facility] [employer] 12-20-2024 17:50-0400 Diastolic blood pressure 78 mm[Hg] Mason Munson MD Work Phone: [facility] 12-20-2024 17:50-0400 Heart rate 101 /min Mason Munson MD Work Phone: [facility] 12-20-2024 17:50-0400 Respiratory rate 16 /min Mason Munson MD Work Phone: [facility] 12-20-2024 17:50-0400 SaO2% (BldA) [Mass fraction] 98 % Mason Munson MD Work Phone: [facility] 12-20-2024 17:50-0400 Systolic blood pressure 182 mm[Hg] Mason Munson MD Work Phone: [facility] [employer] 12-11-2024 20:45-0400 SaO2% (BldA) [Mass fraction] 85.3 % Mason Munson MD Work Phone: [facility] [employer] 12-11-2024 10:14-0400 Body mass index (BMI) [Ratio] 19.61 kg/m2 Mason Munson MD Work Phone: [facility] [employer] 12-11-2024 10:14-0400 Body weight 52.75 kg Mason Munson MD Work Phone: [facility] [employer] 12-11-2024 06:46-0400 Body height 164 cm Mason Munson MD Work Phone: [facility] [employer] 12-06-2024 10:54-0400 Body height 162.6 cm Raffy Fernandez MD Work Phone: [facility] [employer] 12-06-2024 10:54-0400 Body mass index (BMI) [Ratio] 17.68 kg/m2 Raffy Fernandez MD Work Phone: [facility] [employer] 12-06-2024 10:54-0400 Body weight 46.72 kg Raffy Fernandez MD Work Phone: [facility] [employer] 12-06-2024 10:54-0400 Heart rate 94 /min Raffy Fernandez MD Work Phone: [facility] [employer] 12-06-2024 10:54-0400 Respiratory rate 18 /min Raffy Fernandez MD Work Phone: [facility] [employer] 12-06-2024 10:54-0400 SaO2% (BldA) [Mass fraction] 98 % Raffy Fernandez MD Work Phone: [facility] [employer] 11-27-2024 15:46-0400 Body height 162.6 cm Raffy Fernandez MD Work Phone: [employer] 11-27-2024 15:46-0400 Body mass index (BMI) [Ratio] 17.68 kg/m2 Raffy Fernandez MD Work Phone: [facility] [employer] 11-27-2024 15:46-0400 Body weight 46.72 kg Raffy Fernandez MD Work Phone: [facility] [employer] 11-27-2024 15:46-0400 Heart rate 70 /min Raffy Fernandez MD Work Phone: [facility] [employer] 11-27-2024 15:46-0400 Respiratory rate 18 /min Raffy Fernandez MD Work Phone: [facility] [employer] 11-27-2024 15:46-0400 SaO2% (BldA) [Mass fraction] 97 % Raffy Fernandez MD Work Phone: [facility] [employer] 11-22-2024 18:08-0400 Diastolic blood pressure 88 mm[Hg] Kev Warner MD Work Phone: [employer] 11-22-2024 18:08-0400 Heart rate 85 /min Kev Warner MD Work Phone: [employer] 11-22-2024 18:08-0400 Respiratory rate 20 /min Kev Warner MD Work Phone: [employer] 11-22-2024 18:08-0400 Systolic blood pressure 149 mm[Hg] Kev Warner MD Work Phone: [employer] 11-22-2024 15:57-0400 Body height 162.6 cm Kev Warner MD Work Phone: [employer] 11-22-2024 15:57-0400 Body mass index (BMI) [Ratio] 17.68 kg/m2 Kev Warner MD Work Phone: [employer] 11-22-2024 15:57-0400 Body temperature 97.39 [degF] Kev Warner MD Work Phone: [employer] 11-22-2024 15:57-0400 Body weight 46.72 kg Kev Warner MD Work Phone: [employer] 11-22-2024 15:57-0400 SaO2% (BldA) [Mass fraction] 100 % Kev Warner MD Work Phone: [employer] 11-15-2024 11:15-0400 Body temperature 98.1 [degF] CHAPARRO Moore MD Work Phone: [facility] [employer] 11-15-2024 11:15-0400 Diastolic blood pressure 73 mm[Hg] CHAPARRO Moore MD Work Phone: [facility] [employer] 11-15-2024 11:15-0400 Heart rate 61 /min CHAPARRO Moore MD Work Phone: [facility] [employer] 11-15-2024 11:15-0400 Respiratory rate 16 /min CHAPARRO Moore MD Work Phone: [facility] [employer] 11-15-2024 11:15-0400 SaO2% (BldA) [Mass fraction] 100 % CHAPARRO Moore MD Work Phone: [facility] [employer] 11-15-2024 11:15-0400 Systolic blood pressure 150 mm[Hg] CHAPARRO Moore MD Work Phone: [facility] [employer] 11-15-2024 04:48-0400 Body mass index (BMI) [Ratio] 18.76 kg/m2 CHAPARRO Moore MD Work Phone: [facility] [employer] 11-15-2024 04:48-0400 Body weight 49.58 kg CHAPARRO Moore MD Work Phone: [facility] [employer] 11-14-2024 06:25-0400 Body height 162.6 cm CHAPARRO Moore MD Work Phone: [facility] [employer] 11-11-2024 13:12-0400 Body temperature 97.59 [degF] Veronica Abebe MD Work Phone: [facility] [employer] 11-11-2024 13:12-0400 Diastolic blood pressure 80 mm[Hg] Veronica Abebe MD Work Phone: [facility] [employer] 11-11-2024 13:12-0400 Heart rate 87 /min Veronica Abebe MD Work Phone: [facility] [employer] 11-11-2024 13:12-0400 Respiratory rate 16 /min Veronica Abebe MD Work Phone: [facility] [employer] 11-11-2024 13:12-0400 SaO2% (BldA) [Mass fraction] 100 % Veronica Abebe MD Work Phone: [facility] [employer] 11-11-2024 13:12-0400 Systolic blood pressure 154 mm[Hg] Veronica Abebe MD Work Phone: [facility] [employer] 11-10-2024 06:00-0400 Body mass index (BMI) [Ratio] 20.13 kg/m2 Veronica Abebe MD Work Phone: [facility] [employer] 11-10-2024 06:00-0400 Body weight 53.2 kg Veronica Abebe MD Work Phone: [facility] [employer] 10-26-2024 14:38-0400 Body height 162.6 cm Veronica Abebe MD Work Phone: [facility] [employer] 09-06-2024 16:42-0400 Body temperature 100.2 [degF] Carine Jackie DO Work Phone: [facility] 09-06-2024 16:42-0400 Diastolic blood pressure 71 mm[Hg] Carine Jackie DO Work Phone: [facility] 09-06-2024 16:42-0400 Heart rate 110 /min Carine Jakcie DO Work Phone: [facility] 09-06-2024 16:42-0400 Respiratory rate 16 /min Carine Jackie DO Work Phone: [facility] 09-06-2024 16:42-0400 SaO2% (BldA) [Mass fraction] 100 % Carine Jackie DO Work Phone: [facility] 09-06-2024 16:42-0400 Systolic blood pressure 157 mm[Hg] Carine Jackie DO Work Phone: [facility] 08-31-2024 01:34-0400 Body height 163 cm Carine Jackie DO Work Phone: [facility] 08-31-2024 01:34-0400 Body mass index (BMI) [Ratio] 19.5 kg/m2 Carine Mejia DO Work Phone: [facility] 08-31-2024 01:34-0400 Body weight 51.8 kg Carine Mejia DO Work Phone: [facility] 07-17-2024 21:10-0400 Body temperature 98.8 [degF] Rivas Pal-Meghana DO Work Phone: [facility] [employer] 07-17-2024 20:32-0400 Diastolic blood pressure 73 mm[Hg] Rivas Pal-Johnuegena DO Work Phone: [facility] [employer] 07-17-2024 20:32-0400 Heart rate 92 /min Rivas Pal-Meghana DO Work Phone: [facility] [employer] 07-17-2024 20:32-0400 Respiratory rate 16 /min Rivas Pal-Meghana DO Work Phone: [facility] [employer] 07-17-2024 20:32-0400 SaO2% (BldA) [Mass fraction] 98 % Rivas Pal-Meghana DO Work Phone: [employer] 07-17-2024 20:32-0400 Systolic blood pressure 127 mm[Hg] Rivas Pal-Meghana DO Work Phone: [employer] 07-17-2024 14:07-0400 Body mass index (BMI) [Ratio] 19.74 kg/m2 Rivas Pal-Meghana DO Work Phone: [employer] 07-17-2024 14:07-0400 Body weight 52.16 kg Rivas Pal-Meghana DO Work Phone: [employer] 06-29-2024 19:34-0400 Diastolic blood pressure 84 mm[Hg] Veronica Abebe MD Work Phone: [employer] 06-29-2024 19:34-0400 Heart rate 84 /min Veronica Abebe MD Work Phone: [facility] [employer] 06-29-2024 19:34-0400 Respiratory rate 18 /min Veronica Abebe MD Work Phone: [facility] [employer] 06-29-2024 19:34-0400 SaO2% (BldA) [Mass fraction] 100 % Veronica Abebe MD Work Phone: [facility] [employer] 06-29-2024 19:34-0400 Systolic blood pressure 166 mm[Hg] Veronica Abebe MD Work Phone: [facility] [employer] 06-29-2024 17:56-0400 Body temperature 97.7 [degF] Veronica Abebe MD Work Phone: [facility] [employer] 06-29-2024 06:01-0400 Body height 162.6 cm Veronica Abebe MD Work Phone: [facility] [employer] 06-29-2024 06:01-0400 Body mass index (BMI) [Ratio] 19.22 kg/m2 Veronica Abebe MD Work Phone: [facility] [employer] 06-29-2024 06:01-0400 Body weight 50.8 kg Veronica Abebe MD Work Phone: [facility] 06-09-2024 13:36-0500 Body height 162.6 cm Roxie Judit Work Phone: [employer] 06-09-2024 13:36-0500 Body mass index (BMI) [Ratio] 19.22 kg/m2 Roxie Judit Work Phone: [employer] 06-09-2024 13:36-0500 Body weight 50.8 kg Roxie Judit Work Phone: [facility] [employer] 03-03-2024 19:56-0500 Body temperature 97.5 [degF] Marcus Gombash DO Work Phone: [facility] [employer] 03-03-2024 19:56-0500 Diastolic blood pressure 81 mm[Hg] Marcus Gombash DO Work Phone: [employer] 03-03-2024 19:56-0500 Heart rate 91 /min [facility]ash [facility] 03-03-2024 19:56-0500 Respiratory rate 16 /min Marcus [facility]ombash DO [facility] 03-03-2024 19:56-0500 SaO2% (BldA) [Mass fraction] 96 % Marcus [facility]ombash DO [facility] 03-03-2024 19:56-0500 Systolic blood pressure 168 mm[Hg] Marcus [facility]ombash DO [facility] 03-03-2024 04:14-0500 Body mass index (BMI) [Ratio] 18.09 kg/m2 Marcus [facility]ombash DO [facility] 03-03-2024 04:14-0500 Body weight 47.81 kg Marcus Gombash DO Work Phone: [facility] [employer] 03-02-2024 09:56-0500 Body height 162.6 cm Marcus [facility]ombash DO [facility] 02-20-2024 15:07-0500 Body temperature 98.29 [degF] Cassie Mace DO Work [facility] 02-20-2024 15:07-0500 Diastolic blood pressure 72 mm[Hg] Cassie Mace DO Work [facility] 02-20-2024 15:07-0500 Heart rate 87 /min Cassie Glassworth DO Work Phone: [employer] 02-20-2024 15:07-0500 Respiratory rate 16 /min Cassie Glassworth DO Work Phone: [employer] 02-20-2024 15:07-0500 SaO2% (BldA) [Mass fraction] 94 % Cassie Glassworth DO Work Phone: [employer] 02-20-2024 15:07-0500 Systolic blood pressure 151 mm[Hg] Cassie Mace DO [facility] 02-20-2024 00:00-0500 Body mass index (BMI) [Ratio] 18.37 kg/m2 Cassie Mace DO Work Phone: [facility] [employer] 02-20-2024 00:00-0500 Body weight 48.53 kg Cassie Mace DO Work Phone: [facility] 02-19-2024 21:01-0500 Body height 162.6 cm Cassie Mace DO Work Phone: [facility] 02-12-2024 14:21-0500 Body temperature 97.7 [degF] Marcus Gombash DO Work Phone: [facility] 02-12-2024 14:21-0500 Diastolic blood pressure 71 mm[Hg] Marcus Gombash DO Work Phone: [facility] 02-12-2024 14:21-0500 Heart rate 87 /min Marcus [facility]ombash DO [facility] 02-12-2024 14:21-0500 Respiratory rate 14 /min Marcus Gombash DO Work Phone: [facility] 02-12-2024 14:21-0500 SaO2% (BldA) [Mass fraction] 96 % Marcus Gombash DO Work Phone: [facility] 02-12-2024 14:21-0500 Systolic blood pressure 153 mm[Hg] Marcus Gombash DO Work Phone: [facility] 01-25-2024 16:23-0400 Body temperature 97.9 [degF] Mejgon Natasha DO Work Phone: [facility] 01-25-2024 16:23-0400 Diastolic blood pressure 77 mm[Hg] Mejgon Natasha DO Work Phone: [facility] 01-25-2024 16:23-0400 Heart rate 107 /min Mejgon Natasha DO Work Phone: [facility] 01-25-2024 16:23-0400 Respiratory rate 18 /min Brown Kaur DO Work Phone: [facility] 01-25-2024 16:23-0400 SaO2% (BldA) [Mass fraction] 99 % Brown Kaur DO Work Phone: [facility] 01-25-2024 16:23-0400 Systolic blood pressure 158 mm[Hg] Brown Kaur DO Work Phone: [facility] 01-25-2024 08:27-0400 Body height 162.6 cm Brown Kaur DO Work Phone: [facility] 01-25-2024 08:27-0400 Body mass index (BMI) [Ratio] 19.74 kg/m2 Brown Kaur DO Work Phone: [facility] 01-25-2024 08:27-0400 Body weight 52.16 kg Brown Kaur DO Work Phone: [facility] 08-09-2023 20:40-0400 Diastolic blood pressure 75 mm[Hg] Samuel Dennisrakola DO Work Phone: [facility] 08-09-2023 20:40-0400 Heart rate 82 /min Samuel Silvakola DO Work Phone: [facility] 08-09-2023 20:40-0400 Respiratory rate 18 /min Samuel Dennisrakola DO Work Phone: [facility] 08-09-2023 20:40-0400 SaO2% (BldA) [Mass fraction] 100 % Samuel Dennisrakola DO Work Phone: [facility] 08-09-2023 20:40-0400 Systolic blood pressure 147 mm[Hg] Samuel Mudrakola DO Work Phone: [facility] 08-09-2023 20:02-0400 Body temperature 97.59 [degF] Samuel Mudrakola DO Work Phone: [facility] 08-09-2023 15:43-0400 Body height 162.6 cm Samuel Amatola DO Work Phone: [facility] 08-09-2023 15:43-0400 Body mass index (BMI) [Ratio] 18.88 kg/m2 Samuel Amatola DO Work Phone: [facility] 08-09-2023 15:43-0400 Body weight 49.9 kg Samuel Amatola DO Work Phone: [facility] 03-03-2023 08:32-0500 Body temperature 97.81 [degF] Alvarado Bonyo DO Work Phone: [facility] 03-03-2023 08:32-0500 Diastolic blood pressure 72 mm[Hg] Alvarado Bonyo DO Work Phone: [facility] 03-03-2023 08:32-0500 Heart rate 88 /min Alvarado Bonyo DO Work Phone: [facility] 03-03-2023 08:32-0500 Respiratory rate 18 /min Alvarado Bonyo DO Work Phone: [facility] 03-03-2023 08:32-0500 SaO2% (BldA) [Mass fraction] 96 % Alvarado Bonyo DO Work Phone: [facility] 03-03-2023 08:32-0500 Systolic blood pressure 143 mm[Hg] Alvarado Bonyo DO Work Phone: [facility] [employer] 01-12-2023 11:18-0400 Body height 162.6 cm Alvarado Bonyo DO Work Phone: [facility] 01-12-2023 11:18-0400 Body mass index (BMI) [Ratio] 19.74 kg/m2 Alvarado Bonyo DO Work Phone: [facility] 01-12-2023 11:18-0400 Body weight 52.16 kg Alvarado Bonyo DO Work Phone: [facility] 10-01-2022 12:05-0400 Body mass index (BMI) [Ratio] 19.57 kg/m2 Mak Hilario MD Work Phone: [facility] 10-01-2022 12:05-0400 Body temperature 97.7 [degF] Mak Hilario MD Work Phone: [facility] 10-01-2022 12:05-0400 Body weight 51.71 kg Mak Hilario MD Work Phone: [facility] 10-01-2022 12:05-0400 Diastolic blood pressure 75 mm[Hg] Mak Hilario MD Work Phone: [facility] 10-01-2022 12:05-0400 Heart rate 81 /min Mak Hilario MD Work Phone: [facility] 10-01-2022 12:05-0400 Respiratory rate 14 /min Mak Hilario MD Work Phone: [facility] 10-01-2022 12:05-0400 SaO2% (BldA) [Mass fraction] 98 % Mak Hilario MD Work Phone: [facility] 10-01-2022 12:05-0400 Systolic blood pressure 139 mm[Hg] Mak Hilario MD Work Phone: [facility] 08-07-2022 14:00-0400 Diastolic blood pressure 65 mm[Hg] Raffy Fernandez MD Work Phone: [facility] [employer] 08-07-2022 14:00-0400 Heart rate 73 /min Raffy Fernandez MD Work Phone: [facility] [employer] 08-07-2022 14:00-0400 Respiratory rate 11 /min Raffy Fernandez MD Work Phone: [facility] 08-07-2022 14:00-0400 SaO2% (BldA) [Mass fraction] 100 % Raffy Fernandez MD Work Phone: [facility] 08-07-2022 14:00-0400 Systolic blood pressure 108 mm[Hg] Raffy Fernandez MD Work Phone: [facility] 08-07-2022 13:30-0400 Body temperature 97.7 [degF] Raffy Fernandez MD Work Phone: [facility] 08-07-2022 08:15-0400 Body height 162.6 cm Raffy Fernandez MD Work Phone: [facility] 08-07-2022 08:15-0400 Body mass index (BMI) [Ratio] 18.88 kg/m2 Raffy Fernandez MD Work Phone: [facility] 08-07-2022 08:15-0400 Body weight 49.9 kg Raffy Fernandez MD Work Phone: [facility] 06-24-2022 09:35-0400 Body height 162.6 cm Raffy Fernandez MD Work Phone: [facility] 06-24-2022 09:35-0400 Body mass index (BMI) [Ratio] 19.57 kg/m2 Raffy Fernandez MD Work Phone: [facility] 06-24-2022 09:35-0400 Body weight 51.71 kg Raffy Fernandez MD Work Phone: [facility] 06-24-2022 09:35-0400 Diastolic blood pressure 75 mm[Hg] Raffy Fernandez MD Work Phone: [facility] 06-24-2022 09:35-0400 Heart rate 90 /min Raffy Fernandez MD Work Phone: [facility] 06-24-2022 09:35-0400 Systolic blood pressure 130 mm[Hg] Raffy Fernandez MD Work Phone: [facility] 10-25-2019 09:48-0400 BP Diastolic 90 mm[Hg] [facility] 10-25-2019 09:48-0400 BP Systolic 123 mm[Hg] [facility] 10-25-2019 09:48-0400 Pulse (Heart Rate) 71 /min [facility] 10-25-2019 09:48-0400 Pulse Oximetry 100 % Jose Antonio [facility] 10-25-2019 09:48-0400 Respiratory Rate 16 /min Jose Antonio [facility] 10-25-2019 07:35-0400 Body Temperature 97 [degF] Jose Antonio [facility] 10-25-2019 07:35-0400 Body weight 57.61 kg [facility] 10-25-2019 07:35-0400 Height 162.6 cm [facility] Encounters Encounter Date Encounter Type Care Provider Facility Start: 12-28-2024 End: 12-28-2024 Emergency department patient visit Brown Kaur Work Phone: [facility] Comment on above: Transient alteration of awareness (Primary Dx) Start: 12-25-2024 ambulatory Alex guevara OLS Facility:[facility] Start: 12-08-2024 End: 12-20-2024 Evaluation and management of inpatient Mason Munson MD Work Phone: [facility] Start: 12-06-2024 End: 12-06-2024 Preprocedural examination done Raffy Fernandez MD Work Phone: [facility] Start: 12-06-2024 End: 12-06-2024 Subsequent hospital visit by physician Raffy Fernandez MD Work Phone: [facility] Comment on above: ESRD (end stage bladimir l disease) on dialysis (HCC); Preop examination Start: 12-06-2024 End: 12-06-2024 ambulatory RAFFY JIM [facility] Start: 12-06-2024 End: 12-06-2024 [facility] Start: 12-06-2024 End: 12-06-2024 Postop follow up visit related to original px Raffy Fernandez MD Work Phone: [facility] [place] Comment on above: ESRD (end stage bladimir l disease) on dialysis (HCC) (Primary Dx) Start: 12-06-2024 End: 12-06-2024 ambulatory RAFFY FERNANDEZ [facility] Start: 12-05-2024 ambulatory [facility] Facility:[facility] Start: 11-30-2024 ambulatory [facility] Facility:[facility] Start: 11-27-2024 End: 11-27-2024 ambulatory RAFFY FERNANDEZ [facility] Start: 11-27-2024 End: 11-27-2024 Postop follow up visit related to original px Raffy Fernandez MD Work Phone: [facility] [place] Comment on above: ESRD (end stage bladimir l disease) on dialysis (HCC) (Primary Dx) Start: 11-22-2024 End: 11-22-2024 Emergency department patient visit Kev Warner MD Work Phone: [facility] Comment on above: Anemia of chronic di sease (Primary Dx) Start: 11-22-2024 ambulatory [facility] Facility:[facility] Start: 11-16-2024 End: 11-16-2024 Orders Only Kellee Gonzalez RN [facility] Comment on above: End stage congestive heart failure (HCC) (Primary Dx); ESRD (end stage renal disease) (HCC) Start: 11-12-2024 End: 11-15-2024 ambulatory FELIBERTO KAMINSKI [facility] Start: 11-12-2024 End: 11-15-2024 Evaluation and management of inpatient Roz Moore MD Work Phone: [facility]C Comment on above: Wound dehiscence (Pr imary Dx); Anemia due to other cause, not classified; End stage congestive heart failure (HCC); Seizures (HCC); Pressure ulcer of left buttock, stage 3 (HCC) Start: 10-22-2024 End: 11-11-2024 Evaluation and management of inpatient Veronica Abebe MD Work Phone: [facility] Start: 09-13-2024 End: 10-12-2024 Evaluation and management of inpatient KEV WANG [facility] Start: 08-30-2024 End: 09-06-2024 Evaluation and management of inpatient Carine Mejia DO Work Phone: [facility] Comment on above: Hematoma (Primary Dx ) Start: 08-26-2024 End: 08-30-2024 Evaluation and management of inpatient YONY BHAKTA DO~[id number] [facility] Start: 08-14-2024 End: 08-24-2024 Evaluation and management of inpatient YONY BHAKTA DO~[id number] [facility] Start: 07-17-2024 End: 07-17-2024 Emergency department patient visit Rivas Sanchez DO Work Phone: [facility] Comment on above: Adverse effect of dr sue, initial encounter (Primary Dx) Start: 06-29-2024 End: 06-29-2024 Emergency department patient visit Veronica Abebe MD Work Phone: [facility] Comment on above: Myoclonus (Primary D x); Fall, initial encounter; Hyperkalemia Start: 06-09-2024 End: 06-09-2024 Subsequent hospital visit by physician Roxie Spain Work Phone: [facility] Comment on above: Encounter for screen ing mammogram for malignant neoplasm of breast Start: 06-09-2024 End: 06-09-20[facility] Start: 05-23-2024 End: 05-23-2024 Emergency department patient visit RONDA TEJEDA DO~[id number] [facility] Start: 03-02-2024 End: 03-03-2024 ambulatory [facility] Start: 03-02-2024 End: 03-03-2024 Emergency department patient visit Marcus Ragland DO Work Phone: [facility] Cardiac [facility] PCU 5W Comment on above: Shortness of breath (Primary Dx); Acute pulmonary edema (HCC); Hyperkalemia Start: 02-19-2024 End: 02-20-2024 Evaluation and management of inpatient Cassie Mace DO Work Phone: [facility] Cardiac Progressive Care Unit PCU 5W Comment on above: Pulmonary edema, acu te (HCC) (Primary Dx) Start: 02-12-2024 End: 02-12-2024 Emergency department patient visit Marcus Ragland DO Work Phone: [facility] EMERGENCY DEPT Comment on above: Hypertension, unspec ified type (Primary Dx) Start: 01-19-2024 End: 01-25-2024 Evaluation and management of inpatient Brown Kaur DO Work Phone: [facility] Acute Care of the Elderly [facility] 6W Comment on above: Gastrointestinal hem orrhage, unspecified gastrointestinal hemorrhage type (Primary Dx); Anemia, unspecified type Start: 08-09-2023 End: 08-09-2023 Emergency department patient visit Samuel Velasquez DO Work Phone: [facility] EMERGENCY DEPT Comment on above: Hyperkalemia (Primar y Dx) Start: 06-25-2023 End: 09-24-2023 Transcribe Orders Radha Meza MD Work Phone: [facility] Central Scheduling Comment on above: End stage renal dise ase (HCC) (Primary Dx) Start: 03-03-2023 End: 03-03-2023 Emergency department patient visit Christiano Grove DO Work Phone: [facility] EMERGENCY DEPT Comment on above: ESRD on hemodialysis (CMS/HCC) (HCC) (Primary Dx) Start: 03-03-2023 End: 03-03-2023 Subsequent hospital visit by physician Nandini Ecg [facility] Non-Invasive Cardiology Comment on above: Arrived Start: 01-12-2023 End: 01-12-2023 Subsequent hospital visit by physician Christiano Grove DO Work Phone: [facility] Comment on above: Encounter for screen ing mammogram for malignant neoplasm of breast Start: 10-01-2022 Telephone encounter Katherin Salinas RN [facility] Special Procedures Start: 10-01-2022 End: 10-01-2022 Emergency department patient visit Mak Hilario MD Work Phone: [facility] EMERGENCY DEPT Comment on above: Hematoma (Primary Dx ); Bleeding from wound Start: 09-30-2022 End: 09-30-2022 Evaluation and management of inpatient Radha Meza MD Work Phone: [facility] Special Procedures Comment on above: End stage renal dise ase (HCC) Start: 09-28-2022 Transcribe Orders Radha steven MD Work Phone: [facility] Central Scheduling Comment on above: End stage renal dise ase (HCC) (Primary Dx) Start: 08-07-2022 End: 08-07-2022 Subsequent hospital visit by physician Raffy Fernandez MD Work Phone: [facility] MAIN OR Comment on above: S/P arteriovenous (A V) graft placement (Primary Dx) Start: 07-17-2022 ambulatory Kailyn Funk CNP Work Phone: [facility] Start: 07-17-2022 End: 07-17-2022 Subsequent hospital visit by physician Raffy Fernandez MD Work Phone: [facility] MAIN OR Start: 07-10-2022 Telephone encounter Maria R perez MD Work Phone: [facility] Internal Med Start: 07-01-2022 Telephone encounter Raffy smith MD Work Phone: [facility] [place] Comment on above: Surgery Scheduling Start: 06-24-2022 End: 06-24-2022 Office outpatient new 45 minutes Raffy Fernandez MD Work Phone: [facility] [place] Comment on above: ESRD (end stage bladimir l disease) (HCC) (Primary Dx) Start: 06-03-2022 ambulatory CARLOS MANUEL Q WANG Facility: [facility] Start: 06-03-2022 End: 06-03-2022 Subsequent hospital visit by physician Us Lugo 1 RADIO ULTRA clipkit STOW Comment on above: End stage renal dise ase [N18.6] Start: 10-25-2019 End: 10-25-2019 Subsequent hospital visit by physician Jose Antonio Adams Work Phone: [facility] INTERVENTIONAL RADIOLOGY Comment on above: Chronic kidney [...] Glucose quantitative blood xcpt reagent strip Brown Redi Natasha DO Work Phone: Start: 12-20-2024 Glucose quantitative blood xcpt reagent strip Mo Vieira MD Work Phone: Start: 12-20-2024 Glucose quantitative [...] on above: Performed By: #### L [id number] ####Job Service Consultant: PHILLY FRANCO ([phone])[facility] ([address] Start: 12-14-2024 Blood typing serologic abo Ramonita Garnett PULMONOLOGY TECHNICIAN Start: 12-14-2024 End: 12-14-2024 Comprehensive metabolic panel Leticia Malissa DO Work Phone: Start: 12-14-2024 Blood count complete automated Leticia Malissa DO Work Phone: Start: 12-13-2024 Glucose quantitative blood xcpt reagent strip Leticia Malissa DO Work Phone: Start: 12-13-2024 Radex shoulder compl ete minimum 2 views Ramonita Garnett PULMONOLOGY TECHNICIAN Start: 12-13-2024 Glucose quantitative blood xcpt reagent strip Leticia Malissa DO Work Phone: Start: 12-13-2024 End: 12-13-2024 Glucose quantitative blood xcpt reagent strip Leticia Malissa DO Work Phone: Start: 12-13-2024 Basic metabolic pane l calcium total Ramonita Garnett NP Start: 12-13-2024 Drug screen quantita tive vancomycin Leticia Malissa DO Work Phone: Start: 12-12-2024 Ct head/brain w/o co ntrast material Ramonita Garnett PULMONOLOGY TECHNICIAN Start: 12-12-2024 End: 12-12-2024 Glucose quantitative blood xcpt reagent strip Leticia Malissa DO Work Phone: Start: 12-12-2024 Glucose quantitative blood xcpt reagent strip Leticia Malissa DO Work Phone: Start: 12-12-2024 Radiologic exam ches t single view Ramonita Garnett PULMONOLOGY TECHNICIAN Start: 12-12-2024 Radiologic exam abdo men 1 view Ramonita Amanda Mariola PULMONOLOGY TECHNICIAN Start: 12-12-2024 Bacteria identified in Blood by [...] on above: Performed By: #### L [id number] ####Job Service Consultant: PHILLY FRANCO ([phone])[facility] (ACH)[address] Start: 12-08-2024 Blood typing serologic abo [...] on above: Performed By: #### L [id number] ####Job Service Consultant: DEANN MCKEE ([phone])[facility] ([facility])[address] [place] [id number] [place] [address] Start: 11-22-2024 Basic metabolic pane l calcium total Kev Warner MD Work Phone: Start: 11-22-2024 Blood typing serologic abo Kev Warner MD Work Phone: Start: 11-13-2024 Blood count hematocrit Kailyn Juárez MACHINE CLERICAL VERIFIER - MACROECONOMICS PROFESSOR Work Phone: Start: 11-13-2024 Glucose quantitative blood [...] on above: Performed By: #### L [id number] ####Job Service Consultant: PHILLY FRANCO ([phone])[facility] ([facility])[address] [place] [address] Start: 11-11-2024 Basic metabolic pane l calcium total Candy Baiko DO Work Phone: Start: 11-11-2024 Blood typing serologic abo Francisco Javier Somers MD Work Phone: Start: 11-10-2024 Basic metabolic pane l calcium total Candy Baiko DO Work Phone: Start: 11-09-2024 Blood count hematocrit Romain Meadows PULMONOLOGY TECHNICIAN Work Phone: Start: 11-09-2024 Compatibility each u nit electronic Romain Meadows PULMONOLOGY TECHNICIAN Work Phone: Start: 11-09-2024 End: 11-09-2024 TRANSFUSE RED BLOOD CELLS Romain Meadows PULMONOLOGY TECHNICIAN Work Phone: Start: 11-09-2024 Antibody screen FELIBERTO IV AN Comment on above: Performed By: #### L [id number] ####Job Service Consultant: PHILLY FRANCO ([phone])[facility] ([facility])[address] [place] [address] Start: 11-09-2024 Basic metabolic pane l calcium [...] Compatibility each u nit electronic Romain Meadows PULMONOLOGY TECHNICIAN Work Phone: Start: 11-05-2024 End: 11-05-2024 TRANSFUSE RED BLOOD CELLS Romain Meadows PULMONOLOGY TECHNICIAN Work Phone: Start: 11-05-2024 Blood count hematocrit Romain Meadows PULMONOLOGY TECHNICIAN Work Phone: Start: 11-05-2024 Basic metabolic pane [...] pane l calcium total Ana M Austen MACHINE CLERICAL VERIFIER - MACROECONOMICS PROFESSOR Work Phone: Start: 11-01-2024 Glucose quantitative blood [...] pane l calcium total Ana Emanuel Austen MACHINE CLERICAL VERIFIER - MACROECONOMICS PROFESSOR Work Phone: Start: 11-01-2024 Manual Differential panel - Blood Ana Adelfo Austen MACHINE CLERICAL VERIFIER - MACROECONOMICS PROFESSOR Work Phone: Start: 11-01-2024 Glucose quantitative blood [...] pane l calcium total Ana M Boyce MACHINE CLERICAL VERIFIER - MACROECONOMICS PROFESSOR Work Phone: Start: 10-31-2024 Manual Differential panel - Blood Ana M Austen MACHINE CLERICAL VERIFIER - MACROECONOMICS PROFESSOR Work Phone: Start: 10-31-2024 Glucose quantitative blood [...] metabolic panel calcium total Ana M Austen MACHINE CLERICAL VERIFIER - MACROECONOMICS PROFESSOR Work Phone: Start: 10-30-2024 Manual Differential panel - Blood Ana M Austen MACHINE CLERICAL VERIFIER - MACROECONOMICS PROFESSOR Work Phone: Start: 10-29-2024 Glucose quantitative blood xcpt reagent strip Isai Guillen MD Work Phone: Start: 10-29-2024 Glucose quantitative blood xcpt reagent strip Isai Guillen MD Work Phone: Start: 10-29-2024 Glucose quantitative blood xcpt reagent strip Isai Guillen MD Work Phone: Start: 10-29-2024 Basic metabolic pane l calcium total Ana Emanuel Austen MACHINE CLERICAL VERIFIER - MACROECONOMICS PROFESSOR Work Phone: Start: 10-29-2024 Manual Differential panel - Blood Ana Emanuel Austen MACHINE CLERICAL VERIFIER - MACROECONOMICS PROFESSOR Work Phone: Start: 10-29-2024 Glucose quantitative blood [...] metabolic panel calcium total Ana Emanuel Austen MACHINE CLERICAL VERIFIER - MACROECONOMICS PROFESSOR Work Phone: Start: 10-28-2024 Manual Differential panel - Blood Ana Emanuel Austen MACHINE CLERICAL VERIFIER - MACROECONOMICS PROFESSOR Work Phone: Start: 10-28-2024 Glucose quantitative blood xcpt reagent strip Isai Guillen MD Work Phone: Start: 10-27-2024 Glucose quantitative blood xcpt reagent strip Isai Guillen MD Work Phone: Start: 10-27-2024 Glucose quantitative blood xcpt reagent strip Isai Guillen MD Work Phone: Start: 10-27-2024 Blood count hematocrit Ana M Austen MACHINE CLERICAL VERIFIER - MACROECONOMICS PROFESSOR Work Phone: Start: 10-27-2024 Compatibility each u nit electronic Ana M Austen MACHINE CLERICAL VERIFIER - MACROECONOMICS PROFESSOR Work Phone: Start: 10-27-2024 End: 10-27-2024 TRANSFUSE RED BLOOD CELLS Ana Emanuel Nathanael cramer MACHINE CLERICAL VERIFIER - MACROECONOMICS PROFESSOR Work Phone: Start: 10-27-2024 Blood typing serologic abo Ana Emanuel Austen MACHINE CLERICAL VERIFIER - MACROECONOMICS PROFESSOR Work Phone: Start: 10-27-2024 Glucose quantitative blood xcpt reagent strip Isai Guillen MD Work Phone: Start: 10-27-2024 Basic metabolic pane l calcium total Ana Emanuel Austen MACHINE CLERICAL VERIFIER - MACROECONOMICS PROFESSOR Work Phone: Start: 10-27-2024 Manual Differential panel - Blood Ana Emanuel Austen MACHINE CLERICAL VERIFIER - MACROECONOMICS PROFESSOR Work Phone: Start: 10-27-2024 Glucose quantitative blood [...] 10-24-2024 TRANSFUSE RED BLOOD CELLS Kaylin Thomas shopa Work Phone: Start: 10-24-2024 End: 10-24-2024 Comprehensive metabolic panel Leandra David [employer] [place] Work Phone: Start: 10-24-2024 Manual differential performed [Presence] in Blood Leandra David [employer] [place] Work Phone: Start: 10-23-2024 Drug screen quantita [...] 08-31-2024 Blood typing serolog ic rh (d) rAsenio Lombardo MD Work Phone: Start: 08-31-2024 Comprehensive metabo lic panel Teodoro Toscano MD Work Phone: Start: 08-29-2024 Performance of Urina ry Filtration, Intermittent, Less than 6 Hours Per Day BICAKODAK VERA BICAKODAK DO~[id number] Start: 08-20-2024 Transfusion of Nonau tologous Red Blood Cells into Peripheral Vein, Percutaneous Approach B[place] VERA BICAKODAK DO~[id number] Start: 08-17-2024 Extraction of Right Hip Muscle, Open Approach BIC[place] VERA BICAKODAK DO~[id number] Start: 08-15-2024 Insertion of Infusio n Device into Superior Vena Cava, Percutaneous Approach [place] VERA BICAKODAK DO~[id number] Start: 08-15-2024 Performance of Urina ry Filtration, Intermittent, Less than 6 Hours Per Day BIC[place] VERA BICAKODAK DO~[id number] Start: 08-15-2024 Respiratory Ventilat ion, 24-96 Consecutive Hours BICAKODAK VERA BICAKODAK DO~[id number] Start: 08-14-2024 Performance of Cardi ac Output, Single, Manual BICAKODAK VERA BICAKODAK DO~[id number] Start: 07-17-2024 Assay of troponin quantitative Victor [...] ast 12 lds trcg only w/o i&r Chris Huffman MD Work Phone: Start: 02-19-2024 Radiologic exam ches t single view Chris Huffman MD Work Phone: Start: 02-19-2024 Blood gases any comb ination ph pco2 po2 co2 hco3 Chris Huffman MD Work Phone: Start: 02-19-2024 Comprehensive metabo lic panel Chris Hufmfan MD Work Phone: Start: 02-12-2024 Basic metabolic [...] Phone: Start: 01-24-2024 Blood count hematocrit Leticia Colleir MD Work Phone: Start: 01-24-2024 Acute gastrointestin al blood loss imaging Mary Martinez MACHINE CLERICAL VERIFIER - MACROECONOMICS PROFESSOR Work Phone: Start: 01-24-2024 Blood count hematocrit [...] Start: 01-21-2024 Blood count hematocrit Flaco Schulte [place] DO Work Phone: Start: 01-21-2024 Compatibility each u nit electronic Flaco Rivera DO Work Phone: Start: 01-21-2024 End: 01-21-2024 TRANSFUSE RED BLOOD CELLS Flaco Schulte [place] DO Work Phone: Start: 01-21-2024 End: 01-21-2024 [...] metabolic pane l calcium total Jessica Courtney [facility] DO Work Phone: Start: 01-19-2024 Blood count hematocrit Jessica Courtney Niisraeli DO Work Phone: Start: 01-19-2024 RFA Celiac artery Vi ews W contrast IA Jessica Courtney [facility] DO Work Phone: Start: 01-19-2024 Compatibility each [...] Start: 08-09-2023 Renal function panel Andrew Sánchez MACHINE CLERICAL VERIFIER - MACROECONOMICS PROFESSOR Work Phone: Start: 08-09-2023 Ecg routine ecg [...] Fransisco Valdovinos Work Phone: Start: 10-03-2019 CBC [place] [facility] Transcribe Provider Start: 10-03-2019 PROTHROMBIN TIME/PT [facility] Transcribe Provider Start: 07-24-2019 Us retroperitoneal r eal time w/image complete Christiano Kirkland Bonyo Work Phone: Plan of Treatment Date Care Activity Detail Author Start: 01-24-2034 Screening for malign ant neoplasm of colon [facility] Start: 02-22-2027 Lipid panel [facility] Start: 12-20-2025 Creatinine measurement [facility] Start: 12-20-2025 Potassium measurement S [facility] Start: 11-22-2025 Creatinine measurement Creatinine Le yoseph [facility] Start: 11-22-2025 Potassium measurement Potassium Leve l [facility] Start: 11-13-2025 Creatinine measurement Creatinine Le yoseph [facility] Start: 11-13-2025 Potassium measurement Potassium Leve l [facility] Start: 11-11-2025 Creatinine measurement [facility] Start: 11-11-2025 Potassium measurement S [facility] Start: 09-15-2025 Echocardiography Echocardiogram [facility] Start: 09-15-2025 [facility] Start: 09-06-2025 Creatinine measurement Creatinine Le yoseph [facility] Start: 09-06-2025 Potassium measurement Potassium Leve l [facility] Start: 06-09-2025 Screening for malign ant neoplasm of breast [facility] Start: 01-24-2025 Diabetes: Estimated Glomerular Filtration Rate for Kidney Health Diabetes: Estimated Glomerular Filtration Rate for Kidney Health [facility] Start: 12-18-2024 End: 12-18-2024 Patient encounter procedure 12/18/2024 2:30 PM EDT Office Visit [facility] [address] [place] [phone] Raffy Fernandez MD [address] [place], [place] [phone] [facility] Start: 12-06-2024 End: 12-06-2024 Patient encounter procedure 12/06/2024 11:00 AM EDT Office Visit [facility] [place] [address] [place] [phone] Raffy Fernandez MD [address] [place] [address] [facility] [place] Start: 12-04-2024 COVID-19 Vaccine ( season) COVID-19 Vaccine ( season) [facility] Start: 12-04-2024 Influenza vaccination S [facility] Start: 12-04-2024 [facility] Start: 11-27-2024 End: 11-27-2024 Patient encounter procedure 11/27/2024 3:30 PM EDT Office Visit [facility] [employer] [facility] [place] [address] [place] [phone] Raffy Fernandez MD [address] [place], [place] [phone] [facility] [place] Start: 11-22-2024 End: 11-22-2024 ambulatory [facility] [place] Start: 11-22-2024 End: 11-22-2024 Patient encounter procedure 11/22/2024 9:15 AM EDT Office Visit [facility] [employer] [facility] [place] [address] [place] [address] Raffy Fernandez MD [address] [place], [place] [phone] [facility] [place] Start: 11-14-2024 End: 12-14-2024 CBC panel - Blood by Automated count CBC Lab Routine Anemia due to other cause, not classified Expected: 11/14/2024 (Approximate), Expires: 12/14/2024 [facility] [employer] [facility] Work Phone: Comment on above: Expected: 11/14/2024 (Approximate), Expires: 12/14/2024 Start: 04-05-2024 Medicare Advantage A nnual Wellness Visit Medicare Advantage Annual Wellness Visit [facility] Start: 04-05-2024 [facility] Start: 01-13-2024 Screening for malign ant neoplasm of breast Mammogram [facility] Start: 12-05-2023 COVID-19 Vaccine ( season) COVID-19 Vaccine ( season) [facility] Start: 12-05-2023 COVID-19 Vaccine ( season) COVID-19 Vaccine ( season) [facility] Start: 12-05-2023 Influenza vaccination Influenza Vacc ine (#1) [facility] Start: 12-05-2023 [facility] Start: 10-25-2023 Hepatitis B Vaccines (5 of 5 - Risk Dialysis Recombivax 3-dose series) Hepatitis B Vaccines (5 of 5 - Risk Dialysis Recombivax 3-dose series) [facility] Start: 10-25-2023 [facility] Start: 06-25-2023 End: 06-24-2024 RFA Guidance for atherectomy of AV fistula-- W contrast IV IR fistulagram Imaging Routine End stage renal disease (HCC) Expected: 06/25/2023, Expires: 06/24/2024 [facility] Work Phone: Comment on above: Expected: 06/25/2023 , Expires: 06/24/2024 Start: 04-05-2023 Medicare [email or web address] A nnual Wellness Visit Medicare Advantage Annual Wellness Visit [facility] Start: 02-22-2023 Lipid panel Lipid Panel [facility] Start: 02-21-2023 Diabetes mellitus screening [facility] Start: 02-21-2023 Hemoglobin A1c measurement Herminia betes: Hemoglobin A1C [facility] Start: 12-04-2022 COVID-19 Vaccine () COVID-19 Vaccine () [facility] Start: 12-04-2022 Influenza vaccination [facility] Start: 08-26-2022 End: 08-26-2022 Patient encounter procedure 08/26/2022 Office Visit Vascular Surgery Raffy Fernandez MD [address] [place] [address] [address] [facility] Start: 08-07-2022 End: 08-07-2022 Admission to same day surgery center 08/07/2022 Surgery Procedural Raffy Fernandez MD [address] [place] [phone] LEFT UPPER EXTREMITY ARTERIOVENOUS GRAFT PLACEMENT [54724 (CPT )] [facility] MAIN OR Comment on above: LEFT UPPER EXTREMITY ARTERIOVENOUS GRAFT PLACEMENT [98660 (CPT )] Start: 08-07-2022 End: 08-07-2022 Crtj arven fstl xcp dir arven anast nonautog grf CREATION AV FISTULA WITH NONAUTOGEMOUS GRAFT Dependence on renal dialysis (HCC) End stage renal disease (HCC) 08/07/2022 9:30 AM EDT [facility] Operating Room Start: 08-07-2022 Subsequent hospital visit by physician 08/07/2022 Hospital Encounter Procedural Raffy Fernandez MD [address] [place] [address] [facility] MA[facility] OR Start: 08-03-2022 End: 08-03-2022 Patient encounter procedure 08/03/2022 Office Visit Vascular Surgery Raffy Fernandez MD [address] [place] [phone] [facility] Start: 07-17-2022 End: 07-17-2022 Admission to same day surgery center 07/17/2022 Surgery Procedural Raffy Fernandez MD [address] [place] [phone] LEFT UPPER EXTREMITY ARTERIOVENOUS GRAFT PLACEMENT [06986 (CPT )] [facility] MAIN OR Comment on above: LEFT UPPER EXTREMITY ARTERIOVENOUS GRAFT PLACEMENT [23161 (CPT )] Start: 07-17-2022 End: 07-17-2022 Anesthesia consultation 07/17/2022 Anesthesia Event Procedural Mary Wilkinson, MACHINE CLERICAL VERIFIER - MACROECONOMICS PROFESSOR [address] [place] [address] [facility] Start: 07-17-2022 End: 07-17-2022 Crtj arven fstl xcp dir arven anast nonautog grf CREATION AV FISTULA WITH NONAUTOGEMOUS GRAFT Dependence on renal dialysis (HCC) End stage renal disease (HCC) 07/17/2022 11:30 AM EDT [facility] Operating Room Start: 07-17-2022 Subsequent hospital visit by physician 07/17/2022 Hospital Encounter Procedural Raffy Fernandez MD [address] [place] [phone] [facility] Start: 07-16-2022 Hepatitis B Vaccines (2 of 2 - CpG 2-dose series) Hepatitis B Vaccines (2 of 2 - CpG 2-dose series) [facility] Start: 05-24-2022 Hemoglobin A1c measurement Herminia betes: Hemoglobin A1C [facility] Start: 04-05-2022 ADVANCE DIRECTIVE DISCUSSION ADVANCE DIRECTIVE DISCUSSION [facility] Start: 04-05-2022 DEPRESSION ASSESSMENT DEPRESSION ASS ESSMENT [facility] Start: 12-04-2021 Influenza vaccination C [facility] Start: 11-28-2021 Screening for malign ant neoplasm of breast Mammogram [facility] Start: 04-30-2021 COVID-19 Vaccine (4 - Booster for Moderna series) COVID-19 Vaccine (4 - Booster for Moderna series) [facility] Start: 04-30-2021 COVID-19 Vaccine (4 - Moderna series) COVID-19 Vaccine (4 - Moderna series) [facility] Start: 10-16-2020 COVID-19 VACCINE (3 - Booster for Moderna series) COVID-19 VACCINE (3 - Booster for Moderna series) [facility] Start: 12-05-2019 Influenza vaccination M [place], [place] Start: 09-03-2018 Breast cancer screen Breast cancer s seth [place], [place] Start: 2015 ADVANCE DIRECTIVE DISCUSSION ADVANCE DIRECTIVE DISCUSSION [facility] Start: 2015 BONE DENSITY BONE DENSITY [facility] Start: 2015 Pneumococcal 65+ yea rs Vaccine (1 of 1 - PPSV23) Pneumococcal 65+ years Vaccine (1 of 1 - PPSV23) [place], [place] Start: 2015 Pneumococcal Vaccine : 65+ Years (1 of 1 - PCV) Pneumococcal Vaccine: 65+ Years (1 of 1 - PCV) [facility] Start: 2015 PNEUMOVAX AGE 65 AND OVER WITH 5YR LOOKBACK (#1) PNEUMOVAX AGE 65 AND OVER WITH 5YR LOOKBACK (#1) [facility] Start: 2010 HEPATITIS B (1 of 3 - Risk 3-dose series) HEPATITIS B (1 of 3 - Risk 3-dose series) [facility] Start: 2010 RSV High Risk: (Elde rly (60+) or Population) (1 - Risk 60-74 years 1-dose series) RSV High Risk: (Elderly (60+) or Population) (1 - Risk 60-74 years 1-dose series) [facility] Start: 2010 RSV Immunization age d 60 or older (1 - 1-dose 60+ series) RSV Immunization aged 60 or older (1 - 1-dose 60+ series) [facility] Start: 2010 RSV Immunization for Adults (1 - Risk 60-74 years 1-dose series) RSV Immunization for Adults (1 - Risk 60-74 years 1-dose series) [facility] Start: 2010 [facility] Start: 2005 DEXA (modify frequen cy per FRAX score) DEXA (modify frequency per FRAX score) [place], [place] Start: 2000 Colon cancer screen colonoscopy Colon cancer screen colonoscopy [place], [place] Start: 2000 Pneumococcal Vaccine : 50+ Years (1 of 1 - PCV) Pneumococcal Vaccine: 50+ Years (1 of 1 - PCV) [facility] Start: 2000 Shingles Vaccine (1 of 2) Zaman gles Vaccine (1 of 2) [place], [place] Start: 2000 SHINGRIX VACCINE (1 of 2) ZAMAN GRIX VACCINE (1 of 2) [facility] Start: 2000 Tuberculosis screening COLOREC NELLA CANCER SCREENING,SEE MODIFIER [facility] Start: 2000 Zoster Vaccines (1 of 2) Zoste r Vaccines (1 of 2) [facility] Start: 2000 [facility] Start: 1995 COLOGUARD (FIT-DNA) COLOGUARD (FIT-D NA) [facility] Start: 1995 Colonoscopy COLONOSCOPY [facility] Start: 1995 COLORECTAL CANCER SCREENING COLORECTAL CANCER SCREENING [facility] Start: [address] COLONOGRAPHY [facility] Start: 1995 DIABETES SCREEN DIABETES SCREEN [facility] Start: 1995 FECAL OCCULT BLOOD FECAL OCCULT BLOO D [facility] Start: 1995 LIPID SCREEN LIPID SCREEN [facility] Start: 1995 SIGMOIDOSCOPY SIGMOIDOSCOPY [facility] Start: 1990 Lipid screen Lipid screen [place], [place] Start: 1990 Mammography MAMMOGRAM [facility] Start: 1990 Screening for malign ant neoplasm of breast Mammogram [facility] Start: 1972 DTaP/Tdap/Td Vaccine s (1 - Tdap) DTaP/Tdap/Td Vaccines (1 - Tdap) [facility] Start: 1969 DTaP/Tdap/Td vaccine (1 - Tdap) DTaP/Tdap/Td vaccine (1 - Tdap) [place], [place] Start: 1969 DTaP/Tdap/Td Vaccine s (1 - Tdap) DTaP/Tdap/Td Vaccines (1 - Tdap) [facility] Start: 1969 Pneumococcal Vaccine : 50+ Years (1 of 2 - PCV) Pneumococcal Vaccine: 50+ Years (1 of 2 - PCV) [facility] Start: 1969 SHINGRIX VACCINE (1 of 2) ZAMAN GRIX VACCINE (1 of 2) [facility] Start: 1969 Urine microalbumin profile DTAP,TDAP ,TD (1 - Tdap) [facility] Start: 1969 Zoster Vaccines (1 of 2) Zoste r Vaccines (1 of 2) [facility] Start: 1969 [facility] Start: 1968 Diabetes mellitus screening Diabetes Screening [facility] Start: 1968 Diabetes: Urine Albumin-Creatinine Ratio for Kidney Health Diabetes: Urine Albumin-Creatinine Ratio for Kidney Health [facility] Start: 1968 HEPATITIS C SCREENING HEPATITIS C [facility] Start: 1968 Hepatitis C screening Hepatitis C [facility] Start: 1962 Depression Monitoring Depression Mon itoring [facility] Start: 1962 Depression Screening Depression Scre ening [facility] Start: 1962 [facility] Start: 1960 Diabetic foot examination Diabetes: Foot Exam [facility] Start: 1960 Glaucoma screening Diabetes: R etinopathy Screening [facility] Start: 1960 Preventive dental service Diabetes: Dental Exam [facility] Start: 1956 Pneumococcal Vaccine : 65+ Years (1 - PCV) Pneumococcal Vaccine: 65+ Years (1 - PCV) [facility] Start: 1956 Pneumococcal Vaccine : 65+ Years (1 of 2 - PCV) Pneumococcal Vaccine: 65+ Years (1 of 2 - PCV) [facility] Start: 1956 PNEUMOCOCCAL: 65+ (1 - PCV) PNEUMOCOCCAL: 65+ (1 - PCV) [facility] Start: 1951 HEPATITIS A (1 of 2 - Risk 2-dose series) HEPATITIS A (1 of 2 - Risk 2-dose series) [facility] Start: 1950 Echocardiography E[facility]ocardiogram [facility] Start: 1950 Hepatitis C screen Hepatitis C [facility] [place], [place] Start: 1950 Lipid panel Lipid Panel [facility] Start: 1950 Medicare Advantage A nnual Wellness Visit (AWV) Medicare Advantage Annual Wellness Visit (AWV) [facility] Start: 1950 Medicare Annual Well ness Visit Medicare Annual Wellness Visit (AWV) [facility] Start: 1950 Screening for malign ant neoplasm of colon [facility] Start: 1950 Screening for osteoporosis [facility] Bacteria identified in Blood by Culture [facility] End: 02-19-2024 Bacteria identified in Lower respiratory specimen by Aerobe culture [facility] Comment on above: Once (Lab) for 1 Occ urrences starting 02/19/2024 until 02/19/2024 Basic metabolic 2000 panel - Serum or Plasma Basic metabolic panel Lab Routine Daily (Lab) until discontinued starting 08/31/2024, 5 completed [facility] Service Area Work Phone: Comment on above: Daily (Lab) until di scontinued starting 08/31/2024, 5 completed End: 09-07-2024 CBC panel - Blood by Automated count [facility] Work Phone: Comment on above: Morning draw (Lab) f or 3 Days starting 09/05/2024 until 09/07/2024, 1 completed Morning draw (Lab) f or 3 Occurrences starting 09/05/2024 until 09/07/2024 End: 08-31-2024 Consult to Interventional Radiology Consult to Interventional Radiology Imaging STAT Once for 1 Occurrences starting 08/31/2024 until 08/31/2024 [facility] Work Phone: Comment on above: Once for 1 Occurrenc es starting 08/31/2024 until 08/31/2024 ECG 12 lead ECG 12 lead CV E CG STAT 08/09/2023 4:05 PM EDT [facility] Work Phone: Electrocardiogram, 1 2-lead PRN ACS symptoms Electrocardiogram, 12-lead PRN ACS symptoms ECG Routine As needed until discontinued starting 08/31/2024 [facility] Work Phone: Comment on above: As needed until disc ontinued starting 08/31/2024 End: 12-13-2024 Erythrocyte sedimentation rate [employer] Work Phone: End: 02-19-2024 Hemodialysis Hemodialysis inpatient 3 Hours Dialysis Routine Once for 1 Occurrences starting 02/19/2024 until 02/19/2024 [employer] [facility] Work Phone: Comment on above: Once for 1 Occurrenc es starting 02/19/2024 until 02/19/2024 End: 08-31-2024 Hemodialysis Hemodialysis inpatient 3.5 Hours Dialysis Routine Once for 1 Occurrences starting 08/31/2024 until 08/31/2024 [facility] Service Area Work Phone: Comment on above: Once for 1 Occurrenc es starting 08/31/2024 until 08/31/2024 End: 09-02-2024 Hemodialysis Hemodialysis inpatient 3.5 Hours Dialysis Routine Once for 1 Occurrences starting 09/02/2024 until 09/02/2024 [facility] Work Phone: Comment on above: Once for 1 Occurrenc es starting 09/02/2024 until 09/02/2024 End: 09-05-2024 Hemodialysis Hemodialysis inpatient 3.5 Hours Dialysis Routine Once for 1 Occurrences starting 09/05/2024 until 09/05/2024 [facility] Service Area Work Phone: Comment on above: Once for 1 Occurrenc es starting 09/05/2024 until 09/05/2024 End: 09-07-2024 Hemodialysis Hemodialysis inpatient 3.5 Hours Dialysis Routine Once for 1 Occurrences starting 09/07/2024 until 09/07/2024 [facility] Service Area Work Phone: Comment on above: Once for 1 Occurrenc es starting 09/07/2024 until 09/07/2024 End: 09-07-2024 Renal function 2000 panel - Serum or Plasma Renal Function Panel Lab Routine Morning draw (Lab) for 3 Occurrences starting 09/05/2024 until 09/07/2024, 2 completed [facility] Work Phone: Comment on above: Morning draw (Lab) f or 3 Occurrences starting 09/05/2024 until 09/07/2024, 2 completed SURGICAL PATHOLOGY SURGICAL PATH OLOGY Lab Routine 10/25/2019 [facility] Immunizations Immunization Date Immunization Notes Care Provider Fa cili 01-03-2024 influenza virus vaccine, unspecified formulation CHAPARRO Moore MD Work Phone: [employer] 01-16-2023 influenza virus vaccine, unspecified formulation Brown Kaur DO Work Phone: [employer] 08-21-2020 Moderna SARS-CoV-2 Vaccination Raffy Fernandez MD Work Phone: [employer] 07-24-2020 Moderna SARS-CoV-2 Vaccination Raffy Fernandez MD Work Phone: [employer] NEGATED: Highlighted row has not occurred!03-03-2024 Seasonal trivalent influenza vaccine, adjuvanted, preservative free Marcus Ragland DO Work Phone: [employer] Comment on above: Deferred: Patient Re fused - pt states she alread had one Payers Date Payer Category Payer Self-pay 2023 Medicare (Managed Care) [employer] [id number] 2023 Medicare HMO [id number] 2022 Unknown [id number] 2021 Medicare [id number] 2019 Medicare UHC AARP MEDICAR E [facility] AARP MEDICARE HMO [id number] 2019-Present HMO [id number] 2018 Private Health Insurance [id number] 1950 Unknown [id number] 1950 Unknown [id number] 1950 Unknown [id number] 1950 Unknown [id number] Unknown [id number] Unknown [id number] Unknown [id number] Social History Date Type Detail Facility Tobacco smoking [facility] [place] Start: 1950 Sex Assigned At Not on file [place], [place] Exposure to SARS-CoV -2 (event) Unable to assess [facility] Start: 06-14-2022 End: 08-31-2024 Exposure to SARS-CoV-2 (event) Not sure [facility] Tobacco smoking stat [facility] Tobacco smoking consumption unknown [facility] Start: 02-22-2022 End: 08-31-2024 Tobacco smoking status NHIS Never smoked tobacco [facility] Start: 02-22-2022 End: 08-31-2024 Tobacco use and exposure Smokeless tobacco non-user [facility] Start: 06-24-2022 End: 12-06-2024 Alcohol intake Current drinker of alcohol (finding) [facility] Start: 06-24-2022 End: 12-09-2024 Alcohol intake [facility] Start: 02-22-2022 History SDOH Alcohol Frequency 5 [facility] Start: 02-22-2022 History SDOH Alcohol Std Drinks 1 [facility] Start: 02-22-2022 End: 08-07-2022 History SDOH IPV Fear 2 [facility] Start: 07-10-2022 Alcohol Comment weekly [facility] Start: 08-07-2022 End: 12-09-2024 Humiliation, Afraid, Rape, and Kick questionnaire [HARK] [facility] Within the last year , have you been afraid of your partner or ex-partner? No [facility] How often to you hav e a drink containing alcohol? 4 or more times a week [facility] How many standard dr inks containing alcohol do you have on a typical day? 1 or 2 [facility] How often do you hav e 6 or more drinks on 1 occasion? Never [facility] In the past 12 month s, has lack of transportation kept you from medical appointments or from getting medications? No [facility] Start: 11-03-2021 Sex Female (finding) [facility] How often to you hav e a drink containing alcohol? Monthly or less [facility] How often to you hav e a drink containing alcohol? 2-3 time sa week [facility] (I/We) worried wheth er (my/our) food would run out before (I/we) got money to buy more. Never true [facility] How often do you hav e 6 or more drinks on 1 occasion? Less than monthly [facility] Do you belong to any clubs or organizations such as latter-day groups, unions, fraternal or athletic groups, or school groups? Yes [facility] Are you now , , , , never or living with a partner? [facility] Do you feel stress - tense, restless, nervous, or anxious, or unable to sleep at night because your mind is troubled all the time - these days [OSQ] Very much [facility] Medical Equipment Procedure Code Equipment Code Equipment Origin al Text Equipment Identifier Dates [id number] Start: 08-07-2022 [id number] Start: 01-24-2024 Functional Status Date Assessment Result Facility 10-31-2024 Total score [AUDIT-C] [facility] 08-31-2024 Neptune - suicide s everity rating scale screener - recent [C-SSRS] [facility] Work Phone: 08-31-2024 Total score [AUDIT-C] 1 09/01/19 12:15 AM EDT Fe Luong RN [facility] Work Phone: 08-31-2024 Patient Health Quest ionnaire 2 item (PHQ-2) [Reported] [facility] Work Phone: [facility] Work Phone: [facility] Clinical Notes 12-31-2020 to 12-28-2024 Casi Rodgers RN - 12/28/2024 10:26 AM EDTCasi Rodgers RN - 12/28/2024 10:26 AM Karen Kaur DO - 12/28/2024 9:57 AM EDTDischarradha Kaur, DO - 12/28/2024 9:57 AM EDT Note Date & Type Note Facility 12-28-2024 Emergency department Note Called [facility] and spoke with nurse Tyra at the [...] as report. No signs of injury noted. [facility] 12-28-2024 Emergency department Note Called [facility] and spoke with nurse Tyra at the [...] noted. EMERGENCY DEPARTMENT ENCOUNTER Pt Name: Apoorva Gonzalez Birthdate 1950 Date of evaluation: 12/28/2024 ED Provider: Brown Kaur DO CHIEF COMPLAINT Chief Complaint Patient presents with Altered Mental Status Per [place] Latisha, pt was altered last night. Sent [...] daily as needed (first line for agitation, [place] PRN Seroquel for ONLY if danger to [...] Response: Oriented Best Motor Response: Follows commands Tovey Coma Scale Score: 15 PHYSICAL EXAM ED [...] Glucose 80 Narrative: Performed by: Haley Kirk, [address] [place], [place] [id number] CLIA ID: [id number] All other labs were within normal range [...] AM PATIENT REFERRED TO: Roxie Spain [address] [place] [address] DISCHARGE MEDICATIONS: Current Discharge Medication List [...] 01/25/2024 Performed by Chrissy Gilman MD at [facility] ENDOSCOPY IR CVC TUNNELED DIALYSIS CATHETER PLACEMENT 02/27/2022 IR CVC TUNNELED CATHETER PLACEMENT 02/27/2022 Candis Andrade MD [facility] SPECIAL PROCEDURES IR EMBOLIZATION 01/24/2024 IR EMBOLIZATION 01/24/2024 Jovan Glynn MD [facility] SPECIAL PROCEDURES VASCULAR SURGERY Left 11/02/2024 EXCISION [...] 10 min Stress: Stress Concern Present (12/09/2024) [employer] [employer] - Occupational Stress Questionnaire Feeling of Stress : Very much Social Connections: Moderately Integrated (12/09/2024) Social Connection and Isolation Panel [NHANES] Frequency of Communication with Friends and Family: More than three times a week Frequency of Social Gatherings with Friends and Family: Three times a week Attends [employer] Services: 1 to 4 times per year [...] DO 12/28/24 1027 documented in this encounter [facility] 12-28-2024 Hospital Discharge instructions Brown Kaur DO - 12/28/2024 10:20 AM EDT Schedule an appointment to follow-up with your primary care physician for evaluation of your confusion at night. Return to the ER for fevers, chest pain, urinary symptoms or worsening confusion. documented in this encounter [facility] 12-28-2024 Physician Emergency department Note EMERGENCY DEPARTMENT ENCOUNTER Pt Name: Apoorva Gonzalez Birthdate 1950 Date of evaluation: 12/28/2024 ED Provider: Brown Kaur DO CHIEF COMPLAINT Chief Complaint Patient presents with Altered Mental Status Per [place] jay Godo was altered last night. Sent to ED [...] daily as needed (first line for agitation, [place] PRN Seroquel for ONLY if danger to self/others/treatment). sevelamer (Renagel) 800 MG tablet Take 800 mg by mouth 3 times daily (with meals). Swallow tablet whole; do not crush, break, or chew. Thiamine HCl (vitamin B-1) 250 MG tablet Take 250 mg by mouth daily. ALLERGIES Patient has no known allergies. FAMILY HISTORY Family History[3] SOCIAL HISTORY Social History[4] SCREENINGS Tovey Coma Scale Best Eye Response: Spontaneous Best Verbal Response: Oriented Best Motor Response: Follows commands Tovey Coma Scale Score: 15 PHYSICAL EXAM ED [...] Glucose 80 Narrative: Performed by: Haley Kirk, [address] [place] [address] [place] [address] CLIA ID: [id number] All other labs were within normal range [...] AM PATIENT REFERRED TO: Roxie Spain [address] [place] [id number] DISCHARGE MEDICATIONS: Current Discharge Medication List (Comment: [...] 01/25/2024 Performed by Chrissy Gilman MD at [facility] ENDOSCOPY IR CVC TUNNELED DIALYSIS CATHETER PLACEMENT 02/27/2022 IR CVC TUNNELED CATHETER PLACEMENT 02/27/2022 Candis Andrade MD [facility] SPECIAL PROCEDURES IR EMBOLIZATION 01/24/2024 IR EMBOLIZATION 01/24/2024 Jovan Glynn MD [facility] SPECIAL PROCEDURES VASCULAR SURGERY Left 11/02/2024 EXCISION [...] 10 min Stress: Stress Concern Present (12/09/2024) [employer] [place] [employer] - Occupational Stress Questionnaire Feeling of Stress : Very much Social Connections: Moderately Integrated (12/09/2024) Social Connection and Isolation Panel [NHANES] Frequency of Communication with Friends and Family: More than three times a week Frequency of Social Gatherings with Friends and Family: Three times a week Attends [employer]ats[employer] Services: 1 to 4 times per year [...] Year: No Brown Kaur DO 12/28/24 1027 [facility] 12-20-2024 Nurse Note Attempted to call report to [facility]. No answer. Discharge order placed. IVS removed. Transport here to take pt to SNF. Patient Name: Apoorva Gonzalez Patient : 1950 Acct: [id number] Date of Admission: 12/08/2024 [facility] A Code Status: DNR-CCA Allergies: Allergies[1] [...] - Before each treatment: Dialysis Machine No.: [id number] RO Machine Number: [id number] Dialyzer Lot No.: [id number] Tubing Lot Number: [id number] All Connections Secure: Yes Venous Parameters Set: Yes Arterial Parameters Set: Yes NS Bag: Yes Saline Line Double Clamped: Yes Dialyzer: Nipro Prime Volume (mL): 200 mL RO Machine Number: [id number] RO Machine Log Sheet Completed: Yes Machine Alarm Self Test: Passed, Completed (1410) (12/20/24 141) Air Foam Detector: Tested, Proper Function Extracorporeal Circuit Tested for Integrity: Yes Machine Conductivity: 13.7 Manual Conductivity: 13.6 Manual Ph: 7.2 Bleach Test (Neg): Yes Bath Temperature: 36 C (96.8 F) Conductivity Meter Serial #: [id number] Machine Functioning Alarm Free? Yes Dialysis Bath: K+ (Potassium): 3 Ca+ (Calcium): 2.5 Na+ (Sodium): 135 HCO3 (Bicarb): 35 Bicarbonate Concentrate Lot No.: [id number] Acid Concentrate Lot No.: [id number] Chlorine Testing - Before each treatment and [...] sidewalk curb, initial encounter Moderate malnutrition (CMS/HCC) ([facility]) [3] Wound Care consulted for Pressure Injury Prevention. Pt's Arnol score= 14 on 12/18/2024 Pt in chair for assessment. 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 For Left buttock stage 3 pressure injury wound assessment and treatment plan, please see Wound/Ostomy PULMONOLOGY TECHNICIAN progress notes. Pt's pressure points assessed: Pt's [...] and applied. Prevention Measures in place, including: [place] sheet with pillows/wedges (in place), Bilateral foam heel protectors (obtained for pt and applied to pt), Heels elevated off chair on pillows, Bilateral Elbows (off loaded on pillow), Sacral foam (NA see Wound Care PULMONOLOGY TECHNICIAN treatment plan), Upper Spine foam (obtained and [...] in place. PT/OT consult in place. D/W clinical biochemist skin assessment, preventions, and interventions implemented. Will continue to follow pt. Please Voicera for any questions or concerns. DEWAYNE Lozano, RN Patient Name: Apoorva Gonzalez Patient : 1950 Acct: [id number] Date of Admission: 12/08/2024 Room[facility]Bed: [facility] A Code Status: DNR-CCA Allergies: Allergies[1] [...] - Before each treatment: Dialysis Machine No.: [id number] RO Machine Number: [id number] Dialyzer Lot No.: [id number] Tubing Lot Number: [id number] All Connections Secure: Yes Venous Parameters Set: Yes Arterial Parameters Set: Yes NS Bag: Yes Saline Line Double Clamped: Yes Dialyzer: Nipro Prime Volume (mL): 200 mL RO Machine Number: [id number] RO Machine Log Sheet Completed: Yes Machine Alarm Self Test: Completed, Passed (at 1455) (12/18/24 1500) Air Foam Detector: Tested, Proper Function, pH Reading Extracorporeal Circuit Tested for Integrity: Yes Machine Conductivity: 13.7 Manual Conductivity: 13.8 Manual Ph: 7.2 Bleach Test (Neg): Yes (water check negative at 1615) Bath Temperature: 36 C (96.8 F) Conductivity Meter Serial #: [id number] Machine Functioning Alarm Free? Yes Dialysis Bath: K+ (Potassium): 3 Ca+ (Calcium): 2.5 Na+ (Sodium): 135 HCO3 (Bicarb): 35 Bicarbonate Concentrate Lot No.: [id number] Acid Concentrate Lot No.: [id number] Chlorine Testing - Before each treatment and [...] ICU is unable to place line today. AIRCRAFT RESTORER put 18g in upper arm to attempt [...] to the issues with getting access/blood. Messaged container finisher Nany OWEN regarding not being able to [...] specimen contaminated and recommended repeat H&H. Messaged container finisher Nany OWEN about critical. Per PULMONOLOGY TECHNICIAN repeat H&H ordered for morning, no transfusion [...] Name: Apoorva Gonzalez Patient : 1950 Acct: [id number] Date of Admission: 12/08/2024 Room[facility]Bed: [facility] A Code Status: DNR-CCA Allergies: Allergies[1] [...] - Before each treatment: Dialysis Machine No.: [id number] Machine Number: [id number] Dialyzer Lot No.: [id number] Tubing Lot Number: [id number] All Connections Secure: Yes Venous Parameters Set: Yes Arterial Parameters Set: Yes NS Bag: Yes Saline Line Double Clamped: Yes Dialyzer: Nipro Prime Volume (mL): 200 mL RO Machine Number: [id number] RO Machine Log Sheet Completed: Yes Machine [...] HCO3 (Bicarb): 35 Bicarbonate Concentrate Lot No.: [id number] Acid Concentrate Lot No.: [id number] Chlorine Testing - Before each treatment and [...] Name: Apoorva Gonzalez Patient : 1950 Acct: [id number] Date of Admission: 12/08/2024 Room/Bed: [facility] A Code Status: DNR-CCA Allergies: Allergies[1] [...] - Before each treatment: Dialysis Machine No.: [id number] Machine Number: [id number] Dialyzer Lot No.: [id number] Machine Log Sheet Completed: Yes Machine Alarm Self Test: Completed, Passed (12/14/24934) Air Foam Detector: Tested, Proper Function Extracorporeal Circuit Tested for Integrity: Yes (test complete at 932) Machine Conductivity: 13.7 Manual Conductivity: 13.6 Bicarbonate Concentrate Lot No.: [id number] Acid Concentrate Lot No.: [id number] Manual Ph: 7.4 Bleach Test (Neg): Yes Bath Temperature: 36 C (96.8 F) Tubing Lot Number: [id number] Conductivity Meter Serial #: [id number] All Connections Secure: Yes Arterial Parameters Set: [...] can cause aspiration. Patient Name: Apoorva Navarro [place] Patient : 1950 Acct: [id number] Date of Admission: 12/08/2024 Room[facility]Bed: [facility] A Code Status: DNR-CCA Allergies: Allergies[1] [...] - Before each treatment: Dialysis Machine No.: [id number] RO Machine Number: [id number] Dialyzer Lot No.: [id number] Tubing Lot Number: [id number] All Connections Secure: Yes Venous Parameters Set: Yes Arterial Parameters Set: Yes NS Bag: Yes Saline Line Double Clamped: Yes Dialyzer: Nipro Prime Volume (mL): 200 mL RO Machine Number: [id number] RO Machine Log Sheet Completed: Yes Machine Alarm Self Test: Completed, Passed (12/12/24 1445) Air Foam Detector: Tested, Proper Function, pH Reading Extracorporeal Circuit Tested for Integrity: Yes Machine Conductivity: 13.5 Manual Conductivity: 13.6 Manual Ph: 7.2 Bleach Test (Neg): Yes Bath Temperature: 36 C (96.8 F) Conductivity Meter Serial #: [id number] Machine Functioning Alarm Free? Yes Dialysis Bath: K+ (Potassium): 3 Ca+ (Calcium): 2.5 Na+ (Sodium): 135 HCO3 (Bicarb): 35 Bicarbonate Concentrate Lot No.: [id number] Acid Concentrate Lot No.: [id number] Chlorine Testing - Before each treatment and [...] see media tab. Consult placed to wound PULMONOLOGY TECHNICIAN group. Pt turned to left side at end of visit. Prevention Measures in place, including: [place] sheet with pillows/wedges, Foam heel protectors (applied), [...] being unable to answer MRI questions. 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 This rn and nurse charge rn attempted to get blood cultures, unable to get. Lactic was obtained and sent. Called and left for rapid to see if they can obtain blood cultures. Dr Kevin made aware that at this time blood cultures could not be drawn. Notified container finisher Rishi HART of ABG results. Order to [...] states she would like to return [facility] at discharge documented in this encounter [facility] 12-20-2024 Miscellaneous Notes Transportation confirmed for 630. Called and spoke to brother Deshawn with update on time of discharge. RN and community mental health worker notified via secure chat. Discharge med list transmitted to [facility] via [employer] per TCC request. Confirmed pickup time of 6:30pm on 12/20/24 by transport Cuponomiaald Ghazal at phone number [phone]. Location of facility drop off is [facility]. Facility notified via [employer] TCC notified on secure chat. Discharge order noted in epic. JEWELRY CONSULTANT tasked to set up cot transport for return to [facility]. Palliative Care Interdisciplinary Team Note: Diagnosis: Principal [...] Any Medications Nursing: Decrease Fall Risk and Shelter Care Social Work: No Unmet Needs Spiritual Care: No Unmet Needs Pharmacy: No Unmet Needs Psychology/Psychiatry: No Unmet Needs Care Management Progress Note Short Medical why still here: Chart reviewed. MRI under sedation today. +IV abx for discitis, ID following. Patient received 3U PRBC yesterday for Hgb 4.1 2/2 rectus sheath hematoma. Palliative care following. Current discharge plan is return to [facility] once stable. Planned Discharge Disposition: Shelter Facility Barriers/Today we still Wait: Clinical stability, [...] Wednesday. Current discharge plan is return to [facility] once stable. Planned Discharge Disposition: Shelter Facility Barriers/Today we still Wait: Clinical stability, [...] brother-Deshawn. He states received recent information from [facility] that patient may be over assets. He stated he shared this information with the social insurance analyst at [facility]. ACID STRENGTH INSPECTOR did confirm that is the best person [...] into bed using appropriate back board. Ramonita PULMONOLOGY TECHNICIAN notified and fall orders placed. Sitter at bedside, bed alarm placed. No further interventions at this time. Primary RN to call with further concerns. Return Referral placed to [facility] via [employer] per TCC request. Await review and response regarding ability to accept. TCC notified. Care Managment Initial Assessment Date: 12/12/2024 Patient Name: Apoorva Gonzalez : 1950 Patient Information Source of Information: Patient Statistics Professor Name/Contact Information: brother DeshawnGENET, / patient lethargic Cognition/Language: Impaired Permission given to speak with patient renewals representative/caregiver as indicated: Yes Confirmation of Payer [...] Confirmed with: Deshawn arredondo Living Arrangements Facility: [facility] Facility Name: [facility] Plan to Return: Yes Lives with: Alone [...] ECF Discharge Planning Actions: Continue to follow, Shelter Facility referral indicated [place] of choice: [place] of choice discussed (choice list not indicated; [...] Geriatrics consulted. Brother confirmed patient is from [facility]. She is assist with transfer to wheelchair [...] of blood components. documented in this encounter [facility] 12-20-2024 Note [facility] 12-20-2024 Hospital course Narrative Hospitalist Discharge [...] outpatient. Seen by geriatrics and nephrology as banking consultant in hospital admission. The patient is [...] daily as needed (first line for agitation, [place] PRN Seroquel for ONLY if danger to [...] tablet Recommended Follow-up: [facility] Ostomy [address] [facility] [id number] Victor Manuel Benito MD [address] [place] [address] Schedule an appointment as soon as possible for a visit As needed, neck pain Roxie Judit [address] [place] [address] Schedule an appointment as soon as possible for a visit post hospital follow up Complexity of Follow up: [] Moderate Complexity: follow up within 7-14 calendar days (54459) [x] Severe Complexity: follow up within 7 calendar days (17456) Follow up Testing, Pending results or Referrals [...] frame. Signed: Mo Vieira MD [facility] [place]/20/2024 [1] Past Medical History: Diagnosis Date Chronic kidney disease (CKD) Hemodialysis patient (CMS/HCC) (HCC) Wednesday, , Wednesday History of blood transfusion 02/27/2022 Hypertension Seizure (HCC) Developed seizure-like activity on 02/24 during hospital admission documented in this encounter [facility] 12-20-2024 History of Present illness Narrative Nephrology [...] any questions or concerns Pipe Soto MD [facility] Geriatric Medicine Inpatient Consult Service Admission Date: [...] for pain --QTc= 451 ms on 12/11/24 --[place] PRN Seroquel for ONLY if danger to [...] PT/OT evaluation --Anticipate d/c to return to [facility] --Vitamin D 60 --Check orthostatic vital signs as able --Marketing/Sales Person- supplements ordered BID Acute pain due to [...] level 11.3 -As a new medication with BUSINESS PLANNING DIRECTOR activity, sertraline may be a contributor to encephalopathy. Now discontinued -Continue thiamine supplementation Plan discussed with RN. Follow-up: will follow with you Subjective Chief Complaint: fall Geriatrics consulted for fall HPI- The patient is known to me. 74 y.o. year-old female admitted to acute care from [facility] for fall on 12/08. Patient reportedly fell [...] 0.83 12/13/2024 Lab Results Component Value Date [id number] 1,419 (H) 12/13/2024 Lab Results Component Value [...] 5 mg, Oral, Nightly PRN, Eileen Duncan, MACHINE CLERICAL VERIFIER - MACROECONOMICS PROFESSOR, 5 mg at 12/15/242055 naloxone (Narcan) injection [...] infusion, 250 mL/hr, IntraVENous, PRN, Ramonita Garnett, PULMONOLOGY TECHNICIAN sodium chloride 0.9 % infusion, 250 mL/hr, [...] Intake/Output Summary (Last 24 hours) at 12/20/2024 0897 Last data filed at 12/19/2024 2217 Gross [...] QT Interval 360 QTC Interval 451 P [place] 61 QRS [place] 20 T Wave [place] 19 [place] Interval 121 Impression Sinus rhythm Probable LVH [...] MD Division of Hospitalist Medicine Inpatient Medical Services/[facility] [1] Past Medical History: Diagnosis Date Chronic kidney disease (CKD) Hemodialysis patient (CMS/HCC) (HCC) Wednesday, , Wednesday History of blood transfusion 02/27/2022 Hypertension Seizure ([facility]) Developed seizure-like activity on 02/24 [...] mg, IntraVENous, Daily, Jeane Carlson APRN - MACROECONOMICS PROFESSOR, Stopped at 12/19/24 1145 Lidocaine 4 % [...] Oral, BID PRN, Eileen Duncan APRN - MACROECONOMICS PROFESSOR sodium chloride 0.9 % infusion, 5-250 mL/hr, [...] that within the past year between 105-112#.) [place] Body Weight (lbs) (Calculated): 123 lbs [place] Body Weight (Kg) (Calculated): 56 kg % [place] Body Weight (Calculated): 94.6 % BMI (kg/m2) [...] Alexus Denney RD Contact: Secure chat or *[phone] Orthopedic Surgery Progress Note Orthopedic surgery paged regarding patient ability to perform spine exam. On evaluation, patient is seen resting in bedside chair. Patient becomes frustrated during encounter and states isn't it late? Discussed with patient it is 12:00PM and that this provider presented for spine exam. Patient refuses exam, and refuses to answer orientation questions. Please page ortho resident container finisher if/when patient mentation improves so that a formal spine exam may be performed. Orthopaedic surgery will sign off. Please page container finisher orthopaedic resident for questions or concerns. Images from the original note were not included. OCCUPATIONAL THERAPY [facility] Initial Evaluation Name/MRN: Apoorva Gonzalez ([id number]) Evaluation Date: 12/19/2024 Date of : 1950 Admission Date: 12/08/2024 8:06 PM Age: 74 y.o. Room/Bed: W6-633/W6-633 A Discharge Recommendation: Shelter Facility Other: Continue to assess Assessment IMPRESSION: [...] failure (HCC) 11/13/2024 Wound dehiscence 11/12/2024 Seizures ([facility]) 11/02/2024 ESRD (end stage renal disease) ([facility]) 11/02/2024 Dialysis patient ([facility]) 11/02/2024 Sepsis, due to unspecified organism, unspecified whether acute organ dysfunction present ([facility]) 10/22/2024 Edema of left lower extremity 10/05/2024 COVID-19 09/14/2024 Shortness of breath 03/02/2024 Pulmonary edema, acute ([facility]) 02/19/2024 Gastrointestinal hemorrhage, unspecified gastrointestinal [...] of Care supervision is transferred to a [facility] Therapy Services Occupational Therapist. Goals and/or treatment [...] 01/25/2024 Performed by Chrissy Gilman MD at [facility] ENDOSCOPY IR CVC TUNNELED DIALYSIS CATHETER PLACEMENT 02/27/2022 IR CVC TUNNELED CATHETER PLACEMENT 02/27/2022 Candis Andrade MD [facility] SPECIAL PROCEDURES IR EMBOLIZATION 01/24/2024 IR EMBOLIZATION 01/24/2024 Jovan Glynn MD [facility] SPECIAL PROCEDURES VASCULAR SURGERY Left 11/02/2024 EXCISION OF LEFT UPPER EXTREMITY INFECTED GRAFT (JIM) VASCULAR SURGERY Left 11/05/2024 REVISION OR REPAIR, AV FISTULA (JIM) [facility] Geriatric Medicine Inpatient Consult Service Admission Date: [...] for pain --QTc= 451 ms on 12/11/24 --[place] PRN Seroquel for ONLY if danger to [...] PT/OT evaluation --Anticipate d/c to return to [facility] --Vitamin D 60 --Check orthostatic vital signs as able --Palliative care following for ongoing goals of care conversations --Marketing/Sales Person- supplements ordered BID Acute pain due to [...] level 11.3 -As a new medication with BUSINESS PLANNING DIRECTOR activity, sertraline may be a contributor to [...] year-old female admitted to acute care from [facility] for fall on 12/08. Patient reportedly fell [...] 0.83 12/13/2024 Lab Results Component Value Date [id number] 1,419 (H) 12/13/2024 Lab Results Component Value [...] mg, 500 mg, IntraVENous, Daily, Jeane Carlson, MACHINE CLERICAL VERIFIER - MACROECONOMICS PROFESSOR, Stopped at 12/18/24 1950 Lidocaine 4 % patch 1 patch, 1 patch, TransDERmal, Daily, Radha Kevin, melatonin tablet 5 mg, 5 mg, Oral, Nightly PRN, Eileen Duncan, MACHINE CLERICAL VERIFIER - MACROECONOMICS PROFESSOR, 5 mg at 12/15/242055 naloxone (Narcan) injection [...] infusion, 250 mL/hr, IntraVENous, PRN, Ramonita Garnett, PULMONOLOGY TECHNICIAN sodium chloride 0.9 % infusion, 250 mL/hr, [...] original note were not included. PHYSICAL THERAPY [facility] Initial Evaluation Name/MRN: Apoorva Gonzalez ([id number]) Evaluation Date: 12/19/2024 Date of : 1950 Admission Date: 12/08/2024 8:06 PM Age: 74 y.o. Room/Bed: [facility]/W6-633 A Discharge Recommendation: Shelter Facility Assessment IMPRESSION: Pt is a 74 [...] Problem List Diagnosis Date Noted Moderate malnutrition ([facility]) ([facility]) 12/14/2024 Fall, initial encounter 12/09/2024 Fall (on)(from) sidewalk curb, initial encounter 12/09/2024 End stage congestive heart failure ([facility]) 11/13/2024 Wound dehiscence 11/12/2024 Seizures ([facility]) 11/02/2024 ESRD (end stage renal disease) ([facility]) 11/02/2024 Dialysis patient ([facility]) 11/02/2024 Sepsis, due to unspecified organism, unspecified whether acute organ dysfunction present ([facility]) 10/22/2024 Edema of left lower extremity 10/05/2024 COVID-19 09/14/2024 Shortness of breath 03/02/2024 Pulmonary edema, acute ([facility]) 02/19/2024 Gastrointestinal hemorrhage, unspecified gastrointestinal [...] of Care supervision is transferred to a [facility] Therapy Services Physical Therapist. Goals and/or treatment plan was established in collaboration with patient/family/other representatives. [1] Past Medical History: Diagnosis Date Chronic kidney disease (CKD) Hemodialysis patient (CMS/HCC) ([facility]) Wednesday, , Wednesday History of blood transfusion 02/27/2022 Hypertension Seizure ([facility]) Developed seizure-like activity on 02/24 during hospital admission [2] Past Surgical History: Procedure Laterality Date AV FISTULA PLACEMENT Left 08/07/2022 COLONOSCOPY N/A 01/25/2024 Performed by Chrissy Gilman MD at [facility] ENDOSCOPY IR CVC TUNNELED DIALYSIS CATHETER PLACEMENT 02/27/2022 IR CVC TUNNELED CATHETER PLACEMENT 02/27/2022 Candis Andrade MD [facility] SPECIAL PROCEDURES IR EMBOLIZATION 01/24/2024 IR EMBOLIZATION 01/24/2024 Jovan Glynn MD [facility] SPECIAL PROCEDURES VASCULAR SURGERY Left 11/02/2024 EXCISION [...] QT Interval 360 QTC Interval 451 P [place] 61 QRS [place] 20 T Wave [place] 19 [place] Interval 121 Impression Sinus rhythm Probable LVH [...] MD Division of Hospitalist Medicine Inpatient Medical Services/[facility] [1] Past Medical History: Diagnosis Date Chronic [...] mg, IntraVENous, Daily, Jeane Carlson APRN - MACROECONOMICS PROFESSOR, Stopped at 12/18/24 1950 Lidocaine 4 % patch 1 patch, 1 patch, TransDERmal, Daily, Radha Devinzmin, DO melatonin tablet 5 mg, 5 mg, Oral, Nightly PRN, Eileen Duncan APRN - MACROECONOMICS PROFESSOR, 5 mg at 12/15/242055 naloxone (Narcan) injection [...] 12.5 mg, Oral, BID PRN, Eileen Duncan, MACHINE CLERICAL VERIFIER - MACROECONOMICS PROFESSOR sodium chloride 0.9 % infusion, 5-250 mL/hr, [...] Chronic kidney disease (CKD) Hemodialysis patient (CMS/HCC) ([facility]) Wednesday, , Wednesday History of blood transfusion 02/27/2022 Hypertension Seizure ([facility]) Developed seizure-like activity on 02/24 [...] needed to determine the need for possible halfway IV. Thank you for allowing me to [...] any questions or concerns Sean Castaneda MD [facility] - Infectious Diseases Attending Progress Note Subjective: [...] determined Orthopaedic surgery will follow. Please page container finisher orthopaedic resident for questions or concerns. Radiology reports reviewed. C3-4 findings felt to be degenerative, and not infectious. No plan for biopsy. Patient may follow up as needed with Dr. Benito for her neck pain. Additionally, several attempts have been made at spine exam, but these have not been successful given patient's ongoing altered mental status. Please page ortho resident container finisher if/when patient mentation improves so that a formal spine exam may be performed. Orthopaedic surgery will sign off. Please page container finisher orthopaedic resident for questions or concerns. Hospitalist Progress Note 12/18/2024 Subjective: Admit Date: 12/08/2024 PCP: Roxie Spain Room#: W9-781/W8-919 A BRIEF HOSPITAL COURSE: Per previous hospitalist's [...] Directive: DNR-CCA Anticipated Discharge - Date - [facility] 12/19 Extended Emergency Contact Information Primary Emergency Contact: Deshawn Crystal Mobile Relation: Brother Educational Psychology Professor needed? No Secondary Emergency Contact: RuggieroEdward Mobile Relation: Significant Other Preferred language: Mongolian Educational Psychology Professor needed? No Leticia Leonardo DO Division of Hospitalist Medicine [facility] [1] Past Medical History: Diagnosis Date [...] on MRI with sedation plan for today [facility] Geriatric Medicine Inpatient Consult Service Admission Date: [...] for pain --QTc= 451 ms on 12/11/24 --[place] PRN Seroquel for ONLY if danger to [...] PT/OT eval --Anticipate d/c to return to [facility] --Vitamin D 60 --Check orthostatic vital signs as able --Palliative care following for ongoing goals of care conversations --Marketing/Sales Person- supplements ordered BID Acute pain due to [...] level 11.3 -As a new medication with BUSINESS PLANNING DIRECTOR activity, sertraline may be a contributor to [...] year-old female admitted to acute care from [facility] for fall on 12/08. Patient reportedly fell [...] PM Result Value Ref Range PRODUCT CODE F8529K17 Unit Number [id number] Unit ABO O Unit RH POS Crossmatch interpretation COMP Dispense Status Transfused Blood Expiration Date [id number] Product Blood Type 5100 Unit Volume 300 mL PRODUCT CODE [id number] Unit Number [id number] Unit ABO O Unit RH POS Crossmatch interpretation COMP Dispense Status Transfused Blood Expiration Date [id number] Product Blood Type 5100 Unit Volume 300 mL PRODUCT CODE [id number] Unit Number [id number] Unit ABO O Unit RH POS Crossmatch interpretation COMP Dispense Status Transfused Blood Expiration Date [id number] Product Blood Type 5100 Unit Volume 300 [...] 0.83 12/13/2024 Lab Results Component Value Date [id number] 1,419 (H) 12/13/2024 Lab Results Component Value [...] 5 mg, Oral, Nightly PRN, Eileen Duncan, MACHINE CLERICAL VERIFIER - MACROECONOMICS PROFESSOR, 5 mg at 12/15/242055 meropenem (Merrem) 1,000 [...] 12.5 mg, Oral, BID PRN, Eileen Duncan, MACHINE CLERICAL VERIFIER - MACROECONOMICS PROFESSOR sodium chloride 0.9 % infusion, 5-250 mL/hr, [...] 5 mg, Oral, Nightly PRN, Eileen Duncan, MACHINE CLERICAL VERIFIER - MACROECONOMICS PROFESSOR, 5 mg at 12/15/242055 meropenem (Merrem) 1,000 [...] 12.5 mg, Oral, BID PRN, Eileen Duncan, MACHINE CLERICAL VERIFIER - MACROECONOMICS PROFESSOR sodium chloride 0.9 % infusion, 250 mL/hr, IntraVENous, PRN, John Benitez Pentz, DO sodium chloride 0.9 % infusion, 5-250 mL/hr, IntraVENous, PRN, John Benitez Pentz, DO sodium chloride 0.9 % infusion, 250 mL/hr, IntraVENous, PRN, Ramonita Garnett, PULMONOLOGY TECHNICIAN sodium chloride 0.9 % infusion, 250 mL/hr, [...] +confused but knows year, month, and at [facility]. +restless. Reports diffuse pain but otherwise does [...] Directive: DNR-CCA Anticipated Discharge - Date - [facility] 12/19 Extended Emergency Contact Information Primary Emergency Contact: BonillaDeshawn Mobile Relation: Brother Educational Psychology Professor needed? No Secondary Emergency Contact: Edward Ruggiero Mobile Relation: Significant Other Preferred language: Mongolian Educational Psychology Professor needed? No Leticia Leonardo DO Division of Hospitalist Medicine [facility] [1] Past Medical History: Diagnosis Date Chronic kidney disease (CKD) Hemodialysis patient ([facility]/HCC) ([facility]) Wednesday, , Wednesday History of blood transfusion 02/27/2022 Hypertension Seizure ([facility]) Developed seizure-like activity on 02/24 [...] 8:36 AM Mariposa Hidalgo PharmD (available on Inside) [facility] PROGRESS NOTE Subjective Interval [...] 5 mg, Oral, Nightly PRN, Eileen Duncan, MACHINE CLERICAL VERIFIER - MACROECONOMICS PROFESSOR, 5 mg at 12/15/242055 meropenem (Merrem) 1,000 [...] in petrolatum (ET Mix), , Topical, PRN, PAKR Colin CNP, Given at 12/13/24 1748 thiamine [...] 11:04 AM Mariposa Hidalgo PharmD (available on Inside) Hospitalist Progress Note 12/16/2024 Subjective: Admit Date: [...] Extended Emergency Contact Information Primary Emergency Contact: Dsehawn Crystal Mobile Relation: Brother Educational Psychology Professor needed? No Secondary Emergency Contact: Edward Ruggiero Mobile Relation: Significant Other Preferred language: Mongolian Educational Psychology Professor needed? No Leticia Leonardo DO Division of Hospitalist Medicine [facility] [1] Past Medical History: Diagnosis Date [...] any questions or concerns Pipe Soto MD [facility] [place] [phone] [facility] Geriatric Medicine Inpatient Consult Service Admission Date: [...] for pain --QTc= 451 ms on 12/11/24 --[place] PRN Seroquel for ONLY if danger to [...] PT/OT eval --Anticipate d/c to return to [facility] --Vitamin D 60 --Check orthostatic vital signs as able --Palliative care following for ongoing goals of care conversations --Marketing/Sales Person- supplements ordered BID Acute pain due to [...] hemodialysis sessions. -As a new medication with BUSINESS PLANNING DIRECTOR activity, sertraline may be a contributor to [...] year-old female admitted to acute care from [facility] for fall on 12/08. Patient reportedly fell [...] 0.83 12/13/2024 Lab Results Component Value Date [id number] 1,419 (H) 12/13/2024 Lab Results Component Value [...] 5 mg, Oral, Nightly PRN, Eileen Duncan, MACHINE CLERICAL VERIFIER - MACROECONOMICS PROFESSOR, 5 mg at 12/13/24 220 meropenem (Merrem) [...] original note were not included. [facility] Wound Care Progress Note Apoorva Gonzalez AGE: [...] apply ET mix TID and PRN, leave LOW HEEL BUILDER -P500 bed -waffle chair cushion -Q2hr/PRN turns -glide sheets for T&R -continence checks Q1-2 Hrs/PRN Nutritional support Wound Care to follow Recommend to follow up at [facility] Outpatient wound care center after hospital discharge. Any questions or concerns please secure chat [facility] wound/ostomy. Thank you for the consult! I [...] 01/25/2024 Performed by Chrissy Gilman MD at [facility] ENDOSCOPY IR CVC TUNNELED DIALYSIS CATHETER PLACEMENT 02/27/2022 IR CVC TUNNELED CATHETER PLACEMENT 02/27/2022 Candis Andrade MD [facility] SPECIAL PROCEDURES IR EMBOLIZATION 01/24/2024 IR EMBOLIZATION 01/24/2024 Jovan Glynn MD [facility] SPECIAL PROCEDURES VASCULAR SURGERY Left 11/02/2024 EXCISION [...] not taking: Reported on 12/09/2024) Cosigned by vEan Culp DO at 12/18/2024 4:21 PM EDT [...] Intake/Output Summary (Last 24 hours) at 12/15/2024 0787 Last data filed at 12/15/2024 0309 Gross [...] Anticipated Discharge - Date - DC [facility] 12/18 Extended Emergency Contact Information Primary Emergency Contact: Deshawn Crystal Mobile Relation: Brother Educational Psychology Professor needed? No Secondary Emergency Contact: Edward Ruggiero Mobile Relation: Significant Other Preferred language: Mongolian Educational Psychology Professor needed? No Leticia Leonardo DO Division of Hospitalist Medicine [facility] [1] Past Medical History: Diagnosis Date Chronic kidney disease (CKD) Hemodialysis patient ([facility]/HCC) (HCC) Wednesday, , Wednesday History of blood transfusion 02/27/2022 Hypertension Seizure ([facility]) Developed seizure-like activity on 02/24 [...] any questions or concerns Pipe Soto MD [facility] [place] [phone] Spiritual Care Note [facility] Palliative Care Patient Name:Apoorva Gonzalez Chief Complaint: Chief Complaint Patient presents with Fall Pt presents to ED for mechanical fall while at dinner. Pt family states pt fell backwards and hit her head and now has lump on head, denies LOC. Denies blood thinners. Reason for visit: Helicopter Pilot Consult Services Provided To:patient and care team [...] follow-up on 12/18. Please reach out to container finisher provider if more urgent follow up is necessary. Assessment/Plan Goals of care - Apoorva Gonzalez lacks capacity for medical decision-making due to encephalopathy. - legal surrogate decision maker is HCPOA, Brother Deshawn Crystal ( ) Alternate is s/o Edward Ruggiero [phone]) -goals of care include: 1) Goal is [...] History of seizures - remains on home [facility] Palliative Care Encounter -Code Status: DNR-CCA - will continue to follow for ongoing monitoring of progression of encephalopathy as well as for appropriateness for hospice care due to ESRD, sepsis, encephalopathy - was residing at [facility] Time Stamp: Total of [...] Management Advanced Directives: Health Care Power of Grab Setter, DNR Functional Assessment: PPS 40% mainly in bed; can't do any work/extensive disease; mainly assistance; normal or reduced intake; full or drowsy or confusion Prognosis: uncertain at this time Spiritual Assessment: No spiritual distress identified Bereavement and Grief: To Be Determined PDMP/OARRS Reviewed: Yes-reviewed Social history: Marital status: Children: unknown Living status: [facility] Work history: unknown [place] status: No Hindu: None ROS: See palliative care ROS/ESAS below; Detail ROS unable to be obtained due to patient's mental status [place] Symptom Assessment Score [place] Score Pain Score (if non-verbal, add .FLACC [...] hospice appropriate? Eligible, but not consistent with [facility] at this time Transition Note Initiated: yes Chris Verdugo MD [facility] Geriatric Medicine Inpatient Consult Service Admission Date: [...] for pain --QTc= 451 ms on 12/11/24 --[place] PRN Seroquel for ONLY if danger to [...] PT/OT eval --Anticipate d/c to return to [facility] --Vitamin D 60 --Check orthostatic vital signs as able --Palliative care following --Marketing/Sales Person- supplements ordered BID Acute pain due to [...] hemodialysis sessions. -As a new medication with BUSINESS PLANNING DIRECTOR activity, sertraline may be a contributor to [...] year-old female admitted to acute care from [facility] for fall on 12/08. Patient reportedly fell [...] 0.83 12/13/2024 Lab Results Component Value Date [id number] 1,419 (H) 12/13/2024 Lab Results Component Value [...] 10 mg, 10 mg, Oral, Daily, Radha eKvin DO, 10 mg at 12/14/24 08 atorvastatin (Lipitor) tablet 40 mg, 40 mg, Oral, Nightly, John Shepherd DO, 40 mg at 12/13/24 2202 [...] 5 mg, Oral, Nightly PRN, Eileen Duncan, MACHINE CLERICAL VERIFIER - MACROECONOMICS PROFESSOR, 5 mg at 12/13/24 2202 meropenem (Merrem) [...] 12.5 mg, Oral, BID PRN, Eileen Duncan, MACHINE CLERICAL VERIFIER - MACROECONOMICS PROFESSOR sevelamer carbonate (Renvela) tablet 800 mg, 800 [...] Anticipated Discharge - Date - DC [facility] 12/16 Extended Emergency Contact Information Primary Emergency Contact: Deshawn Crystal Mobile Relation: Brother Educational Psychology Professor needed? No Secondary Emergency Contact: Edward Ruggiero Mobile Relation: Significant Other Preferred language: Mongolian Educational Psychology Professor needed? No Leticia Leonardo DO Division of Hospitalist Medicine [facility] [1] Past Medical History: Diagnosis Date [...] original note were not included. [facility]ound [facility] Progress Note Apoorva Gonzalez AGE: [...] resting in bed. At time of visit, wood lathe operator at bedside setting up. Treatment noted. PAST [...] apply ET mix TID and PRN, leave LOW HEEL BUILDER -P500 bed -waffle chair cushion -Q2hr/PRN turns -glide sheets for T&R -continence checks Q1-2 Hrs/PRN Nutritional support Wound Care to follow Recommend to follow up at [facility] Outpatient wound care center after hospital discharge. [...] 01/25/2024 Performed by Chrissy Gilman MD at [facility] IR CVC TUNNELED DIALYSIS CATHETER PLACEMENT 02/27/2022 IR CVC TUNNELED CATHETER PLACEMENT 02/27/2022 Candis Andrade MD [facility] PROCEDURES IR EMBOLIZATION 01/24/2024 IR EMBOLIZATION 01/24/2024 Jovan Glynn MD [facility] PROC[facility] VASCULAR SURGERY Left 11/02/2024 EXCISION [...] were not included. [facility] - Infectious Diseases Attending Progress [...] More MD - 12/14/2024 4:44 PM EDT [facility] Infectious Disease Attending Note Patient seen and [...] 10 min Stress: Stress Concern Present (12/09/2024) [place] of Occupational Health - Occupational Stress Questionnaire Feeling of Stress : Very much Social Connections: Moderately Integrated (12/09/2024) Social Connection and Isolation Panel [NHANES] Frequency of Communication with Friends and Family: More than three times a week Frequency of Social Gatherings with Friends and Family: Three times a week Attends Uatsdin Services: 1 to 4 times per year [...] update plan of care accordingly. Please page container finisher orthopaedic resident for questions or concerns. [1] [...] 01/25/2024 Performed by Chrissy Gilman MD at [facility] IR CVC TUNNELED DIALYSIS CATHETER PLACEMENT 02/27/2022 IR CVC TUNNELED CATHETER PLACEMENT 02/27/2022 Candis Andrade MD [facility] PROCEDURES IR EMBOLIZATION 01/24/2024 IR EMBOLIZATION 01/24/2024 Jovan Glynn MD [facility] PROCEDURES VASCULAR SURGERY Left 11/02/2024 EXCISION [...] 5 mg, Oral, Nightly PRN, Eileen Duncan, MACHINE CLERICAL VERIFIER - TAMIR naloxone (Narcan) injection 0.4 mg, 0.4 mg, IntraVENous, q5 min PRN, Radha Paredsemin, DO ondansetron ODT (Zofran-ODT) disintegrating tablet 4 [...] [] CrCl ml/min (Cockcroft-Gault, if ROLANDO, no AIRCRAFT RESTORER) Infectious Diagnosis: Bone and joint infection (discitis) [...] 2:03 PM Hilda Wilkes RPh (available on Inside) Hospitalist Progress Note 12/13/2024 Subjective: Admit Date: [...] Anticipated Discharge - Date - DC [facility] 12/15 Extended Emergency Contact Information Primary Emergency Contact: BonillaDeshawn Mobile Relation: Brother Educational Psychology Professor needed? No Secondary Emergency Contact: Edward Ruggiero Mobile Relation: Significant Other Preferred language: Mongolian Educational Psychology Professor needed? No Leticia Leonardo DO Division of Hospitalist Medicine Acute care [facility] [1] Past Medical History: Diagnosis Date Chronic kidney disease (CKD) Hemodialysis patient ([facility]/HCC) ([facility]) Wednesday, , Wednesday History of blood transfusion 02/27/2022 Hypertension Seizure ([facility]) Developed seizure-like activity on 02/24 [...] any questions or concerns Pipe Soto MD [facility] [place] [phone] Orthopedic Surgery Progress Note The following x-rays were ordered and subsequently completed. My interpretation is as follows: Left shoulder XR (12/13/24): no acute fracture or dislocation. Moderate degenerative changes of the left glenohumeral joint appreciated Radiology reports to be reviewed. Orthopaedic surgery will follow for MRI completion and update plan as indicated. Please page container finisher orthopaedic resident for questions or concerns. Images from the original note were not included. PHYSICAL THERAPY [facility] Name/MRN: Apoorva Gonzalez ([id number]) Date: 12/13/2024 Plans for MRI with sedation, also has pending shoulder x-rays. Will continue to hold and assess at a later time as able. Guilherme Tavares PT [facility] Geriatric Medicine Inpatient Consult Service Admission Date: [...] 12/12/24 --Await PT/OT eval --Anticipate d/c to [facility], anticipate return to [facility] --Vitamin D 60 --Check orthostatic vital signs as able --Palliative care following --Will consult investor relations manager Acute pain due to trauma -Management per [...] hemodialysis sessions. -As a new medication with BUSINESS PLANNING DIRECTOR activity, sertraline may be a contributor to [...] discussed with RN, geriatric pharmacist, and nephrology PULMONOLOGY TECHNICIAN. Follow-up: will follow with you Subjective Chief Complaint: fall Geriatrics consulted for fall HPI- The patient is known to me. 74 y.o. year-old female admitted to acute care from [facility] for fall on 12/08. Patient reportedly fell [...] MRI. Patient had a unwitnessed fall overnight. AIRCRAFT RESTORER called and CT head with no acute intracranial abnormalities. ground operations superintendent placed at bedside. Labs reviewed with sodium [...] be more comfortable than yesterday. Spoke to food safety auditor at bedside with patient moaning. She has [...] 3.30 09/14/2024 Lab Results Component Value Date [id number] >2,000 (H) 09/14/2024 Lab Results Component Value [...] 5 mg, Oral, Nightly PRN, Eileen Duncan, MACHINE CLERICAL VERIFIER - MACROECONOMICS PROFESSOR naloxone (Narcan) injection 0.4 mg, 0.4 mg, [...] To schedule mri with sedation please call [phone] Images from the original note were not included. OCCUPATIONAL THERAPY [facility] Name/MRN: Apoorva Gonzalez ([id number]) Date: 12/12/2024 Attempt Note Attempted OT eval. Awaiting results of C-spine MRI. ~Jelly Gleason MS, OTR/L [facility] Geriatric Medicine Inpatient Consult Service Admission Date: [...] --Anticipate d/c to [facility], anticipate return to [facility] --Vitamin D 60 --Check orthostatic vital signs [...] CrCl Plan discussed with RN and nephrology PULMONOLOGY TECHNICIAN. Follow-up: will follow with you Subjective Chief Complaint: fall Geriatrics consulted for fall HPI- The patient is known to me. 74 y.o. year-old female admitted to acute care from [facility] for fall on 12/08. Patient reportedly fell [...] MRI with HD after. Spoke to Nephrology PULMONOLOGY TECHNICIAN due to mentation concerns and missed HD. [...] 360 ms QTC Interval 451 ms P [place] 61 degrees QRS [place] 20 degrees T Wave [place] 19 degrees [place] Interval 121 ms Blood Gas, Arterial Collection [...] 3.30 09/14/2024 Lab Results Component Value Date [id number] >2,000 (H) 09/14/2024 Lab Results Component Value Date VITD25 60 (H) 12/11/2024 Reviewed: allergies, imaging, active problem lists, medications, and labs [1] Current Facility-Administered Medications: acetaminophen (Tylenol) tablet 650 mg, 650 mg, Oral, q4h PRN OR Acetaminophen (Tylenol) 650 MG/20.3ML solution 650 mg, 650 mg, Oral, q4h PRN OR acetaminophen (Tylenol) suppository 650 mg, 650 mg, Rectal, q4h PRN, Radha eKvin, DO acetaminophen (Tylenol) tablet 1,000 mg, 1,000 [...] mg, 4 mg, IntraVENous, q6h PRN, John Benietz Pentz, DO oxyCODONE (Roxicodone) immediate release tablet [...] Admit Date: 12/08/2024 PCP: Roxie Spain Room#: [id number] A BRIEF HOSPITAL COURSE: Per previous hospitalist's [...] Emergency Contact: Deshawn Crystal Mobile Relation: Brother Educational Psychology Professor needed? No Secondary Emergency Contact: Edward Ruggiero Mobile Relation: Significant Other Preferred language: Mongolian Educational Psychology Professor needed? No Leticia Leonardo DO Division of Hospitalist Medicine [facility] [1] Past Medical History: Diagnosis Date [...] original note were not included. PHYSICAL THERAPY [facility] Name/MRN: Apoorva Gonzalez ([id number]) Date: 12/12/2024 Pt with pending MRI noted [...] out with any questions or concerns Pipe Stoo MD [facility] [place] [phone] MRI attempted again; pt. Unable to tolerate [...] [] CrCl ml/min (Cockcroft-Gault, if ROLANDO, no AIRCRAFT RESTORER) - to have HD today (did not [...] 8:36 AM Hilda Wilkes RPh (available on [employer]) Images from the original note were not included. OCCUPATIONAL THERAPY [facility] Name/MRN: Apoorva Gonzalez ([id number]) Date: 12/11/2024 OT eval on hold pending MRI c-spine imaging. Will evaluate as appropriate. Leonila Rios OT Hospitalist Progress Note 12/11/2024 Subjective: Admit Date: 12/08/2024 PCP: Roxie Spain Room#: [id number] A Chief Complaint Patient presents with Fall [...] Emergency Contact: Deshawn Crystal Mobile Relation: Brother Educational Psychology Professor needed? No Secondary Emergency Contact: Edward Ruggiero Mobile Relation: Significant Other Preferred language: Mongolian Educational Psychology Professor needed? No Radha Kevin DO Division of Hospitalist Medicine Acute [facility] [1] Past Medical History: Diagnosis Date [...] or concerns Pipe Soto MD [facility] [place] [phone] Images from the original note were not included. PHYSICAL THERAPY [facility] Name/MRN: Apoorva Gonzalez ([id number]) Date: 12/11/2024 PT held pending MRI c-spine [...] deltoids) Fluid Accumulation: No significant fluid accumulation Patented Hogshead Assembler Strength: Not Performed Nutrition Assessment: 74yo F [...] Total Energy Requirements (kcals/day): 30-35 kcal/kg = 9820-3649 kcal/day Weight Used for Protein Requirements: Other [...] that within the past year between 105-112#.) [place] Body Weight (lbs) (Calculated): 123 lbs [place] Body Weight (Kg) (Calculated): 56 kg % [place] Body Weight (Calculated): 94.6 % BMI (kg/m2) [...] soon to determine Lilliana Manning RD Contact: *[phone] [facility] Geriatric Medicine Inpatient Consult Service Admission Date: [...] 3.30 09/14/2024 Lab Results Component Value Date [id number] >2,000 (H) 09/14/2024 Lab Results Component Value [...] IntraVENous, Once, John Shepherd DO [facility] [place] Nephrology Progress Note Nephrology following for ESRD. [...] and medication adjustments. Please message me through [employer] chat with any questions or concerns. Jose G Ramirez DO 12/10/2024 2:34 PM [facility] [place] [address], [address] [place] [address] Office: [phone] [1] [START ON 12/11/2024] amLODIPine, 10 mg, [...] Emergency Contact: Deshawn Crystal Mobile Relation: Brother Educational Psychology Professor needed? No Secondary Emergency Contact: Edward Ruggiero Mobile Relation: Significant Other Preferred language: Mongolian Educational Psychology Professor needed? No Radha Kevin DO Division of Hospitalist Medicine [facility] [1] Past Medical History: Diagnosis Date Chronic kidney disease (CKD) Hemodialysis patient (CMS/HCC) (HCC) Wednesday, , Wednesday History of blood transfusion 02/27/2022 Hypertension Seizure ([facility]) Developed seizure-like activity on 02/24 [...] Admit Date: 12/08/2024 PCP: Roxie Spain Room#: [id number] A Chief Complaint Patient presents with Fall [...] Emergency Contact: Deshawn Crystal Mobile Relation: Brother Educational Psychology Professor needed? No Secondary Emergency Contact: Edward Ruggiero Mobile Relation: Significant Other Preferred language: Mongolian Educational Psychology Professor needed? No Radha Kevin DO Division of Hospitalist Medicine [facility] [1] Past Medical History: Diagnosis Date [...] original note were not included. OCCUPATIONAL THERAPY [facility] Name/MRN: Apoorva Gonzalez ([id number]) Date: 12/09/2024 OT orders received and chart reviewed. MRI pending c-spine for r/o discitis, will await results prior to initiating OT eval. Jelly Fischer OT Images from the original note were not included. PHYSICAL THERAPY [facility] Name/MRN: Apoorva Gonzalez ([id number]) Date: 12/09/2024 PT orders received, chart review performed. Patient currently has c-spine MRI pending to r/o discitis. Will hold PT eval and await imaging results. Will re-attempt as patient is appropriate during acute hospital stay. Dinora Jaramillo PT documented in this encounter [facility] 12-18-2024 Hospital Discharge instructions Enriqueta Benton PA-C [...] Discharging Nurse: CYNTHIA Ayala Discharging Hospital Unit/Room#: [id number] A Discharging Unit Phone Number: [phone] Emergency Contact: Extended Emergency Contact Information Primary Emergency Contact: Deshawn Crystal Mobile Relation: Brother Educational Psychology Professor needed? No Secondary Emergency Contact: Edward Ruggiero Mobile Relation: Significant Other Preferred language: Mongolian Educational Psychology Professor needed? No Past Surgical History: Past Surgical History: Procedure Laterality Date AV FISTULA PLACEMENT Left 08/07/2022 COLONOSCOPY N/A 01/25/2024 Performed by Chrissy Gilman MD at [facility] IR CVC TUNNELED DIALYSIS CATHETER PLACEMENT 02/27/2022 IR CVC TUNNELED CATHETER PLACEMENT 02/27/2022 Candis Andrade MD [facility] SPECIAL PROCEDURES IR EMBOLIZATION 01/24/2024 IR EMBOLIZATION 01/24/2024 Jovan Glynn MD [facility] PROCEDURES VASCULAR SURGERY Left 11/02/2024 EXCISION [...] assistance Toileting Total assistance Feeding Minimal assistance Muck Miner Minimal assistance Med Delivery no Wound Care [...] Date: 12/12 [facility] Address: [address] [place] [address] Dialysis Facility (if applicable) Name: [facility] Address: Dialysis Schedule: Phone: Fax: Pullman Conductor/Clerical Production Worker signature: ICIAN SECTION Name: Apoorva Gonzalez Prognosis: good Condition at Discharge: stable Rehab Potential (if transferring to Rehab): good Recommended Labs or Other Treatments After Discharge: cbc bmp in 3 days The individual is being admitted to a nursing facility directly from an [facility] or a unit of [facility] that is not operated by or licensed by [facility] under section 5119.14 or 5160-3-15.1 5 The individual requires the level of services provided by a nursing facility for the condition for which he or she was treated in the hospital and, Physician Certification: I certify the above information and transfer of Apoorva Gonzalez is necessary for the continuing treatment of the diagnosis listed and that she requires [facility] facility for less than 30 days. Update Admission H&P: No change in H&P PHYSICIAN SIGNATURE: documented in this encounter [facility] 12-16-2024 Consult note Associated Order (s): IP [...] Narrative: Patient Name: APOORVA GONZALEZ : 1950 [facility]#: [id number] Exam Date/Time: 12/16/2024 13:50 Procedure: CT ABDOMEN [...] This note may have been dictated using [employer] Medical Practice Edition 2.6 and/or [employer] Libre Voice Recognition Feature. The document was proofread; however, unrecognized voice recognition urinalysis technician errors may be present. [1] Past Medical History: Diagnosis Date Chronic kidney disease (CKD) Hemodialysis patient (CMS/HCC) (HCC) Wednesday, , Wednesday History of blood transfusion 02/27/2022 Hypertension Seizure (HCC) Developed seizure-like activity on 02/24 during hospital admission [2] Past Surgical History: Procedure Laterality Date AV FISTULA PLACEMENT Left 08/07/2022 COLONOSCOPY N/A 01/25/2024 Performed by Chrissy Gilman MD at [facility] IR CVC TUNNELED DIALYSIS CATHETER PLACEMENT 02/27/2022 IR CVC TUNNELED CATHETER PLACEMENT 02/27/2022 Candis Andrade MD [facility] PROCEDURES IR EMBOLIZATION 01/24/2024 IR EMBOLIZATION 01/24/2024 Jovan Glynn MD [facility] PROCEDURES VASCULAR SURGERY Left 11/02/2024 EXCISION [...] tablet 40 mg 40 mg Oral Nightly Jhon Shepherd, DO 40 mg at 12/15/242055 B [...] Oral Nightly PRN Eileen Duncan APRN - MACROECONOMICS PROFESSOR 5 mg at 12/15/242055 meropenem (Merrem) 1,000 [...] Oral BID PRN Eileen Duncan, PARK - MACROECONOMICS PROFESSOR sodium chloride 0.9 % infusion 250 mL/hr [...] 10 min Stress: Stress Concern Present (12/09/2024) [place] of Occupational Health - Occupational Stress Questionnaire Feeling of Stress : Very much Social Connections: Moderately Integrated (12/09/2024) Social Connection and Isolation Panel [NHANES] Frequency of Communication with Friends and Family: More than three times a week Frequency of Social Gatherings with Friends and Family: Three times a week Attends Uatsdin Services: 1 to 4 times per year [...] (MOD) Personally Reviewed/Independently interpreted patient's: [x]Epic notes: []Etymology Teacher notes, []Nursing notes, []Case management/SW [x]Radiology studies: [...] This note may have been dictated using [employer] Medical Practice Edition 2.6 and/or A[employer] Libre Voice Recognition Feature. The document was proofread; however, unrecognized voice recognition urinalysis technician errors may be present. [1] Patient Active Problem List Diagnosis Hypertensive emergency Gastrointestinal hemorrhage, unspecified gastrointestinal hemorrhage type Anemia Pulmonary edema, acute ([facility]) Shortness of breath COVID-19 Edema of left lower extremity Sepsis, due to unspecified organism, unspecified whether acute organ dysfunction present ([facility]) Seizures ([facility]) ESRD (end stage renal disease) ([facility]) Dialysis patient ([facility]) Wound dehiscence End stage congestive heart failure ([facility]) Fall, initial encounter Fall (on)(from) sidewalk curb, initial encounter Moderate malnutrition ([facility]) ([facility]) [2] Past Medical History: Diagnosis Date Chronic kidney disease (CKD) Hemodialysis patient ([facility]) ([facility]) Wednesday, , Wednesday History of blood transfusion 02/27/2022 Hypertension Seizure ([facility]) Developed seizure-like activity on 02/24 [...] & deltoids) Fluid Accumulation: Mild Extremities, Generalized Patented Hogshead Assembler Strength: Not Performed Nutrition Assessment: Pt with [...] that within the past year between 105-112#.) [place] Body Weight (lbs) (Calculated): 123 lbs [place] Body Weight (Kg) (Calculated): 56 kg % [place] Body Weight (Calculated): 94.6 % BMI (kg/m2) [...] Alexus Denney RD Contact: Secure chat or *[phone] Associated Order(s): IP CONSULT TO PALLIATIVE CARE [...] ( ) Alternate is s/o Edward Ruggiero [phone]) -goals of care include: 1) discussed with [...] History of seizures - remains on home [facility] Palliative Care Encounter -Code Status: DNR-CCA - will continue to follow for ongoing monitoring of progression of encephalopathy as well as for appropriateness for hospice care due to ESRD, sepsis, encephalopathy - was residing at [facility] Time Stamp: Total of 90 minutes spent [...] Management Advanced Directives: Health Care Power of Grab Setter, DNR Functional Assessment: PPS 40% mainly in bed; can't do any work/extensive disease; mainly assistance; normal or reduced intake; full or drowsy or confusion Prognosis: uncertain at this time Spiritual Assessment: No spiritual distress identified Bereavement and Grief: To Be Determined PDMP/OARRS Reviewed: Yes-reviewed Social history: Marital status: Children: unknown Living status: [facility] Work history: unknown status: No Hindu: None ROS: See palliative care ROS/ESAS below; Detail ROS unable to be obtained due to patient's mental status Mansfield Symptom Assessment Score Mansfield Score Pain Score (if non-verbal, add .FLACC [...] hospice appropriate? Eligible, but not consistent with [facility] at this time Transition Note Initiated: [...] 01/25/2024 Performed by Chrissy Gilman MD at [facility] ENDOSCOPY IR CVC TUNNELED DIALYSIS CATHETER PLACEMENT 02/27/2022 IR CVC TUNNELED CATHETER PLACEMENT 02/27/2022 Candis Andrade MD [facility] SPECIAL PROCEDURES IR EMBOLIZATION 01/24/2024 IR EMBOLIZATION [...] from the original note were not included. [facility] - Infectious Diseases Attending Consult Note Reason [...] 10 min Stress: Stress Concern Present (12/09/2024) [facility] [place] [facility] - Occupational Stress Questionnaire Feeling of Stress : Very much Social Connections: Moderately Integrated (12/09/2024) Social Connection and Isolation Panel [NHANES] Frequency of Communication with Friends and Family: More than three times a week Frequency of Social Gatherings with Friends and Family: Three times a week Attends Uatsdin Services: 1 to 4 times per year [...] Date Chronic kidney disease (CKD) Hemodialysis patient ([facility]/HCC) (HCC) Wednesday, , Wednesday History of blood transfusion 02/27/2022 Hypertension Seizure ([facility]) Developed seizure-like activity on 02/24 during hospital admission [2] Past Surgical History: Procedure Laterality Date AV FISTULA PLACEMENT Left 08/07/2022 COLONOSCOPY N/A 01/25/2024 Performed by Chrissy Gilman MD at [facility] ENDOSCOPY IR CVC TUNNELED DIALYSIS CATHETER PLACEMENT 02/27/2022 IR CVC TUNNELED CATHETER PLACEMENT 02/27/2022 Candis Andrade MD [facility] SPECIAL PROCEDURES IR EMBOLIZATION 01/24/2024 IR EMBOLIZATION 01/24/2024 Jovan Glynn MD [facility] SPECIAL PROCEDURES VASCULAR SURGERY Left 11/02/2024 EXCISION [...] More MD - 12/13/2024 6:51 PM EDT [facility] Infectious Disease Attending Note Patient seen and evaluated with resident/student. I performed/re-performed a history, physical examination, and saavedra elements of management of the patient and discussed his/her management with the resident/student. I reviewed the resident/student note and agree with the documented findings and plan of care with changes as noted with italics. Patient well known to me from previous [facility] admissions in the past few months- mostly [...] original note were not included. [facility] CONSULT Note Apoorva Gonzalez AGE: [...] apply ET mix TID and PRN, leave LOW HEEL BUILDER -P500 bed -waffle chair cushion -Q2hr/PRN turns -glide sheets for T&R -continence checks Q1-2 Hrs/PRN Nutritional support Wound Care to follow Recommend to [facility] up at [facility] Outpatient wound care center after hospital discharge. [...] History of blood transfusion 02/27/2022 Hypertension Seizure ([facility]) Developed seizure-like activity on 02/24 during hospital admission [2] Past Surgical History: Procedure Laterality Date AV FISTULA PLACEMENT Left 08/07/2022 COLONOSCOPY N/A 01/25/2024 Performed by Chrissy Gilman MD at [facility] ENDOSCOPY IR CVC TUNNELED DIALYSIS CATHETER PLACEMENT 02/27/2022 IR CVC TUNNELED CATHETER PLACEMENT 02/27/2022 Candis Andrade MD [facility] SPECIAL PROCEDURES IR EMBOLIZATION 01/24/2024 IR EMBOLIZATION 01/24/2024 Jovan Glynn MD [facility] SPECIAL PROCEDURES VASCULAR SURGERY Left 11/02/2024 EXCISION [...] Apoorva Gonzalez Date of : 1950 Acct: [id number] PCP: Roxie Spain Date of Admission: 12/08/2024 [...] September 2024. She was initially treated at [facility] but was transferred to [facility] for ICU treatment of septic shock, hypoxic respiratory failure, and encephalopathy. She had an infected right thigh hematoma that was irrigated and debrided at [facility] at that time with recurrence of [...] COLONOSCOPY Chrissy Gilman MD N/A Posted <div [id number]></ div> Home Medications: Prior to Admission medications [...] 10 min Stress: Stress Concern Present (12/09/2024) [place] [facility] - Occupational Stress Questionnaire Feeling of Stress : Very much Social Connections: Moderately Integrated (12/09/2024) Social Connection and Isolation Panel [NHANES] Frequency of Communication with Friends and Family: More than three times a week Frequency of Social Gatherings with Friends and Family: Three times a week Attends Uatsdin Services: 1 to 4 times per year [...] update plan of care accordingly. Please page container finisher orthopaedic resident for questions or concerns. Balta Chacon M.D. PGY-2 Orthopaedic Surgery Francisco Javier Morales MD Orthopaedic Surgery, PGY-4 [1] Past Medical History: Diagnosis Date Chronic kidney disease (CKD) Hemodialysis patient ([facility]) ([facility]) Wednesday, , Wednesday History of blood transfusion 02/27/2022 Hypertension Seizure ([facility]) Developed seizure-like activity on 02/24 [...] 10 mg, 10 mg, IntraVENous, q6h PRN, Radah Kuzmin, DO, 10 mg at 12/11/241999 levETIRAcetam [...] [] CrCl ml/min (Cockcroft-Gault, if ROLANDO, no AIRCRAFT RESTORER) Consulted By: Dr. Radha Kevin Vancomycin Level: [...] Chat Associated Order(s): IP CONSULT TO GERIATRICS [facility] Geriatric Medicine Inpatient Consult Service Admission Date: [...] patient's brother/POA for my call went to [facility]. Will attempt to reach out at another time. Advance Care Planning Healthcare Power ofAttorney: yes Financial Power of Grab Setter: yes Living Will:yes Code Status: DNR CCA [...] 01/25/2024 Performed by Chrissy Gilman MD at [facility] ENDOSCOPY IR CVC TUNNELED DIALYSIS CATHETER PLACEMENT 02/27/2022 IR CVC TUNNELED CATHETER PLACEMENT 02/27/2022 Candis Andrade MD [facility] SPECIAL PROCEDURES IR EMBOLIZATION 01/24/2024 IR EMBOLIZATION 01/24/2024 Jovan Glynn MD [facility] SPECIAL PROCEDURES VASCULAR SURGERY Left 11/02/2024 EXCISION OF LEFT UPPER EXTREMITY INFECTED GRAFT (JIM) VASCULAR SURGERY Left 11/05/2024 REVISION OR REPAIR, AV FISTULA (JIM) [5] Family History Problem Relation Name Age of Onset Dementia Mother Stroke Father Prostate cancer Brother 69 Breast cancer Cousin 32 Stomach cancer Mother's Sister 70 [facility] Consult Note Consults HPI The patient [...] 10 min Stress: Stress Concern Present (12/09/2024) [place] [facility] - Occupational Stress Questionnaire Feeling of Stress : Very much Social Connections: Moderately Integrated (12/09/2024) Social Connection and Isolation Panel [NHANES] Frequency of Communication with Friends and Family: More than three times a week Frequency of Social Gatherings with Friends and Family: Three times a week Attends Uatsdin Services: 1 to 4 times per year [...] and medication adjustments. Please message me through Stockr chat with any questions or concerns. Sean Castaneda MD 12/09/2024 4:23 PM [facility] [address], [address] [place] [id number] Office: [phone] [1] Past Medical History: Diagnosis Date Chronic [...] sodium chloride 0.9% documented in this encounter [facility] 12-12-2024 Note Return Referral plac ed to [facility] via [facility] per [facility] request. Await review and response regarding ability to accept. TCC notified. [facility] 12-09-2024 Emergency department Note IV re established [...] for clarification.) Mason Munson MD Acute Care [facility] Mason Munson MD 12/08/24 2236 EMERGENCY DEPARTMENT ENCOUNTER Pt Name: Apoorva Gonzalez [...] 40 mEq (40 mEq Oral Given 12/08/24 3938) Prescription drugs considered: Blood transfusion PROCEDURES: Unless [...] Date Chronic kidney disease (CKD) Hemodialysis patient ([facility]/HCC) (HCC) Wednesday, , Wednesday History of blood transfusion 02/27/2022 Hypertension Seizure ([facility]) Developed seizure-like activity on 02/24 during hospital admission [2] Past Surgical History: Procedure Laterality Date AV FISTULA PLACEMENT Left 08/07/2022 COLONOSCOPY N/A 01/25/2024 Performed by Chrissy Gilman MD at [facility] ENDOSCOPY IR CVC TUNNELED DIALYSIS CATHETER PLACEMENT 02/27/2022 IR CVC TUNNELED CATHETER PLACEMENT 02/27/2022 Candis Andrade MD [facility] SPECIAL PROCEDURES IR EMBOLIZATION 01/24/2024 IR EMBOLIZATION 01/24/2024 Jovan Glynn MD [facility] SPECIAL PROCEDURES VASCULAR SURGERY Left 11/02/2024 EXCISION [...] Year: No Angelica Hines DO Resident 12/08/24 7379 Cosigned by Mason Munson MD at 12/09/2024 9:45 PM EDT Emergency Department Encounter Location: [facility]W [...] AM Result Value Ref Range PRODUCT CODE [id number] Unit Number [id number] Unit ABO O Unit RH POS Crossmatch [...] (Results Pending) Final ED Course and MDM: Apoovra Gonzalez is a 74 y.o. whose care [...] 40 mEq (40 mEq Oral Given 12/08/24 5878) oxyCODONE (Roxicodone) immediate release tablet 5 mg [...] 9:45 PM EDT documented in this encounter [facility] 12-09-2024 Note [facility] 12-09-2024 History and physical note Attending [...] discharge. Plan was for discharge back to [facility] on 11/13/24 however pt required new authorization from [facility] to return to the facility. Auth [...] Emergency Contact: Deshawn Crystal Mobile Relation: Brother Educational Psychology Professor needed? No Secondary Emergency Contact: Edward Ruggiero Mobile Relation: Significant Other Preferred language: Mongolian Educational Psychology Professor needed? No ADVANCED CARE PLANNING Apoorva Navarro [place] : 1950 Primary Care Physician: Roxie Spain The patient and/or family/surrogate voluntarily agreed to participate in ACP services. Patient s cognitive capacity: Alert and oriented Code Status: [_] [FULL CODE - Continue all advanced life support: CPR,intubation,invasive procedures] [X] [DNR-CCA - DO NOT do CPR, intubation] [_] [DNR-EXPRESS CLERK - Comfort care only] [_] DNR form [...] John Shepherd DO Division of Hospitalist Medicine [facility] [1] Past Medical History: Diagnosis Date Chronic kidney disease (CKD) Hemodialysis patient (CMS/HCC) (HCC) Wednesday, , Wednesday History of blood transfusion 02/27/2022 Hypertension Seizure (HCC) Developed seizure-like activity on 02/24 during hospital admission [2] Past Surgical History: Procedure Laterality Date AV FISTULA PLACEMENT Left 08/07/2022 COLONOSCOPY N/A 01/25/2024 Performed by Chrissy Gilman MD at [facility] ENDOSCOPY IR CVC TUNNELED DIALYSIS CATHETER PLACEMENT 02/27/2022 IR CVC TUNNELED CATHETER PLACEMENT 02/27/2022 Candis Andrade MD [facility] SPECIAL PROCEDURES IR EMBOLIZATION 01/24/2024 IR EMBOLIZATION 01/24/2024 Jovan Glynn MD [facility] SPECIAL PROCEDURES VASCULAR SURGERY Left 11/02/2024 EXCISION [...] No Known Allergies documented in this encounter [facility] 12-06-2024 History of Present illness Narrative 12/06/2024 [facility] 1950 Chief Complaint Patient presents with Post-op [...] 01/25/2024 Performed by Chrissy Gilman MD at [facility] ENDOSCOPY IR CVC TUNNELED DIALYSIS CATHETER PLACEMENT 02/27/2022 IR CVC TUNNELED CATHETER PLACEMENT 02/27/2022 Candis Andrade MD [facility] SPECIAL PROCEDURES IR EMBOLIZATION 01/24/2024 IR EMBOLIZATION 01/24/2024 Jovan Glynn MD [facility] SPECIAL PROCEDURES VASCULAR SURGERY Left 11/02/2024 EXCISION OF LEFT UPPER EXTREMITY INFECTED GRAFT (JIM) VASCULAR SURGERY Left 11/05/2024 REVISION OR REPAIR, AV FISTULA (JIM) documented in this encounter [facility] 11-27-2024 History of Present illness Narrative 11/27/2024 Apoorva Navarro [place] 1950 Chief Complaint Patient presents with Post-op [...] 01/25/2024 Performed by Chrissy Gilman MD at [facility] ENDOSCOPY IR CVC TUNNELED DIALYSIS CATHETER PLACEMENT 02/27/2022 IR CVC TUNNELED CATHETER PLACEMENT 02/27/2022 Candis Andrade MD [facility] SPECIAL PROCEDURES IR EMBOLIZATION 01/24/2024 IR EMBOLIZATION 01/24/2024 Jovan Glynn MD [facility] SPECIAL PROCEDURES VASCULAR SURGERY Left 11/02/2024 EXCISION OF LEFT UPPER EXTREMITY INFECTED GRAFT (JIM) VASCULAR SURGERY Left 11/05/2024 REVISION OR REPAIR, AV FISTULA (JIM) documented in this encounter [facility] 11-22-2024 Emergency department Note Called [facility] [phone]. Spoke with CYNTHIA Perry. Advised pt sent in from dialysis for low hgb of 6.5, [facility] ED hgb 7.8. pt stable and will be sent back. [facility] 11-22-2024 Emergency department Note Called [facility] [phone]. Spoke with CYNTHIA Perry. Advised pt sent in from dialysis for low hgb of 6.5, [facility] ED hgb 7.8. pt stable and will [...] Family History[3] SOCIAL HISTORY Social History[4] SCREENINGS Tovey Coma Scale Best Eye Response: Spontaneous Best Verbal Response: Confused Best Motor Response: Follows commands Tovey Coma Scale Score: 14 PHYSICAL EXAM ED [...] 01/25/2024 Performed by Chrissy Gilman MD at [facility] ENDOSCOPY IR CVC TUNNELED DIALYSIS CATHETER PLACEMENT 02/27/2022 IR CVC TUNNELED CATHETER PLACEMENT 02/27/2022 Candis Andrade MD [facility] SPECIAL PROCEDURES IR EMBOLIZATION 01/24/2024 IR EMBOLIZATION 01/24/2024 Jovan Glynn MD [facility] SPECIAL PROCEDURES VASCULAR SURGERY Left 11/02/2024 EXCISION [...] Warner MD 11/22/241714 documented in this encounter [facility] 11-22-2024 Physician Emergency department Note EMERGENCY DEPARTMENT [...] 01/25/2024 Performed by Chrissy Gilman MD at [facility] ENDOSCOPY IR CVC TUNNELED DIALYSIS CATHETER PLACEMENT 02/27/2022 IR CVC TUNNELED CATHETER PLACEMENT 02/27/2022 Candis Andrade MD [facility] SPECIAL PROCEDURES IR EMBOLIZATION 01/24/2024 IR EMBOLIZATION 01/24/2024 Jovan Glynn MD [facility] SPECIAL PROCEDURES VASCULAR SURGERY Left 11/02/2024 EXCISION [...] Year: No Kev Warner MD 11/22/24 171 [facility] 11-16-2024 History of Present illness Narrative Pt was followed by the Palliative Care Team during hospitalization at [facility]. Provider is recommending continued Palliative follow up in the community. Referral made too [facility]. Info faxed to [phone] documented in this encounter [facility] 11-15-2024 Note [facility] 11-15-2024 Hospital course Narrative Hospitalist Discharge Summary Apoorva Gonzalez : 1950 Admit date: 11/12/2024 Discharge date: 11/15/2024 Admitting Physician: Edson Velazquez MD Primary Care Physician: Roxie Spain Visit Status: Observation Code Status: DNR-CCA BRIEF HOSPITAL COURSE: Apoorva is a 74 y.o. female with past medical history of CKD, hemodialysis (/), history of blood transfusion, Hypertension, and seizure disorder who presents from [facility] with chief complaint of left upper extremity graft site complication with bloody drainage. She presents as a direct transfer from [facility] due to complications of left upper [...] on November 05, 2024. On evaluation at [facility] ER she was noted to have a white count of 10.9 (down trended from 12.6 the day prior. Hemoglobin 9.3 (increased from 7.0 the day prior). BMP grossly unremarkable for ESRD patient. ED physician at [facility] discussed with vascular surgery and plan for admit with vascular surgery consult. Case was discussed with [place] emergency room physician and patient admitted for [...] draws. Plan was for discharge back to [facility] today 11/13/24 however pt requires new authorization from [facility] to return to the facility. Auth [...] this medication? Recommended Follow-up: Roxie Judit [address] [place] [address] Schedule an appointment as soon as possible for a visit [facility] [address] [place] [phone] Complexity of Follow up: [] Moderate Complexity: follow up within 7-14 calendar days (56115) [x] Severe Complexity: follow up within 7 calendar days (71196) Follow up Testing, Pending results or Referrals [...] frame. Signed: Megan Alaniz NP [facility] 11/15/2024, 11:40 AM [1] Past Medical History: Diagnosis Date Chronic kidney disease (CKD) Hemodialysis patient (CMS/HCC) (HCC) Wednesday, , Wednesday History of blood transfusion 02/27/2022 Hypertension Seizure (HCC) Developed seizure-like activity on 02/24 during hospital admission Cosigned by Kevin Do MD at 11/15/2024 8:56 PM EDT documented in this encounter [facility] 11-15-2024 Nurse Note Report called to nurse at [facility]. All questions answered. 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 [facility] 11-15-2024 Nurse Note Report called to nurse at [facility]. All questions answered. 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 03:50 Pt refusing daily lab work, FREDI Decker notified. NO new orders Patient Name: Apoorva Gonzalez Patient : 1950 Acct: [id number] Date of Admission: 11/12/2024 [facility] A Code Status: DNR-CCA Allergies: [...] - Before each treatment: Dialysis Machine No.: [id number] RO Machine Number: [id number] Dialyzer Lot No.: [id number] Tubing Lot Number: [id number] All Connections Secure: Yes Venous Parameters Set: Yes Arterial Parameters Set: Yes NS Bag: Yes Saline Line Double Clamped: Yes Dialyzer: Nipro Prime Volume (mL): 200 mL RO Machine Number: [id number] RO Machine Log Sheet Completed: Yes Machine Alarm Self Test: Completed, Passed (The machine passed all tests at 1208) (11/14/24 1209) Air Foam Detector: Proper Function, Tested Extracorporeal Circuit Tested for Integrity: Yes Machine Conductivity: 13.8 Manual Conductivity: 13.6 Manual Ph: 7.2 Bleach Test (Neg): Yes Bath Temperature: 36 C (96.8 F) Conductivity Meter Serial #: [id number] Machine Functioning Alarm Free? Yes Dialysis Bath: [...] and report given to Primary RN at 1589. Primary RN (First Initial, Last Name, Title): [...] meadows made aware. documented in this encounter [facility] 11-15-2024 Miscellaneous Notes Patient Choice Patient Name: APOORVA GONZALEZ Date of : 1950 All Providers Sent Referral Name: [facility] Phone: [phone] Address: [address] [place] [address] MAR & Discharge med list transmitted to [facility] TCC request. [facility] received discharge order. SHERIE completed and bedside nurse aware. [facility] spoke with the patient to make her aware and she agreed to pay any applicable cost for cot transport after TCC explained she could call her insurance to request cost information. Set up cot transport for 12:30 pm with [employer] ([phone]). The patient asked that [facility] call her brother/REJI Hess to make him aware. [facility] spoke with Stephanie via phone and provided verbal explanation of CUENCA. He denied any need to appeal discharge. [facility] set up transport via cot at 12:30 pm, making the patient, Ednae, bedside nurse, critical care unit manager and SNF aware of transport time. TCC tasked [employer]EWEL[employer] CONSULT[employer] to send DC paperwork to SNF. ACID STRENGTH INSPECTOR spoke with Deshawn [phone] son regarding [employer] benefits during a skilled stay in a facility. How insurance dictates skilled time in a SNF. Educated on medicaid, rules, and Patient liability in a SNF. ACID STRENGTH INSPECTOR assisted with medicaid application and faxed to [email or web address] to sign paperwork and send back to ACID STRENGTH INSPECTOR to file with Gauri Hensley. fruit farmworker to follow. Referral placed to [facility] via [facility] per TCC request. Await review and response regarding ability to accept. TCC notified. Care Management Progress Note Short Medical why still here: Awaiting insurance authorization for return to SNF. Planned Discharge Disposition: Shelter Facility Barriers/Today we still Wait: Facility pre-cert Length of Stay (Days): 1 GMLOS: No GMLOS Documented - CM referral acknowledged. - [facility] received update that discharge order had been written. - TCC spoke with the patient to introduce self/role and the patient stated she did want to return to the facility. - TCC tasked JEWELRY CONSULTANT to initiate referral in [facility]. - TCC spoke with admission staff May at [facility] who verified a new auth will be needed for the patient to return to the facility. - [facility] tasked [facility] to initiate [employer] authorization and updated attending that authorization will be need to be approved before the patient can be discharge back to her SNF. Attending acknowledged the update. _ TCC will continue to follow. Patient is from a SNF. 30 day readmission is not warranted. documented in this encounter [facility] 11-15-2024 Progress note Formatting of t his note might be different from the original. Patient Choice Patient Name: APOORVA GONZALEZ Date of : 1950 All Providers Sent Referral Name: [facility] Phone: [phone] Address: [address] [place] [address] [facility] 11-15-2024 Progress note Formatting of t his note might be different from the original. MAR & Discharge med list transmitted to [facility] via [facility] per TCC request. [facility] 11-15-2024 Progress note Formatting of t his note might be different from the original. [facility] received discharge order. SHERIE completed and bedside nurse aware. [facility] spoke with the patient to make her aware and she agreed to pay any applicable cost for cot transport after TCC explained she could call her insurance to request cost information. Set up cot transport for 12:30 pm with [employer] ([phone]). The patient asked that [facility] call her brother/DMPASTRID Hess to make him aware. [facility] spoke with Stephanie via phone and provided verbal explanation of CUENCA. He denied any need to appeal discharge. TCC set up transport via cot at 12:30 pm, making the patient, Clarance, bedside nurse, critical care unit manager and SNF aware of transport time. TCC tasked JEWELRY CONSULTANT to send DC paperwork to SNF. [facility] [employer] 11-15-2024 History of Present illness Narrative Nephrology [...] any questions or concerns Karis Stone APRN MACROECONOMICS PROFESSOR A-G PULMONOLOGY TECHNICIAN [facility] [phone] I reviewed with Karis Stone APRN-TAMIR the saavedra portions of the medical history and the findings on physical examination. I discussed the patient s saavedra portions of the diagnosis and concur with the treatment plan as documented in her note. Please message me through [employer] with any questions or concerns. Sean Castaneda [...] who presents as a direct transfer from [facility] due to complications of left upper [...] on November 05, 2024. On evaluation at [facility] ER, pt was noted to have a [...] 7.2. Plan was for discharge back to [facility] 11/13/24 however pt requires new authorization from [facility] to return to the facility. Patient [...] On: Kcal/kg Weight Used for Energy Requirements: [place] Weight for Energy Calculation (kg): 55 kg Total Energy Requirements (kcals/day): 5227-2311 kcal/day (30-35) Weight Used for Protein Requirements: [place] Weight in Kg Used for Protein Requirements: 55 kg Estimated Total Protein (g/day): 55-66 g/day (1-1.2) Estimated Daily Total Fluid (ml/day): 2289-8052 ml/day Nutrition Related Findings: Arnol: 17. I&O: [...] 10/06/24 bed scale, 11/07/24 120# bed scale) [place] Body Weight (lbs) (Calculated): 120 lbs [place] Body Weight (Kg) (Calculated): 55 kg % [place] Body Weight (Calculated): 97.5 % BMI (kg/m2) [...] soon to determine Rose Pizarro RD Contact: *[phone] Nephrology Progress Note Following for ESRD Pt [...] any questions or concerns Karis Stone APRN MACROECONOMICS PROFESSOR A-G PULMONOLOGY TECHNICIAN [facility] [phone] Pt seen and examined independently by me. I reviewed with MAYANK Mensah the saavedra portions of the medical history and the findings on physical examination. I discussed the patient s saavedra portions of the diagnosis and concur with the treatment plan as documented in her note. Please message me through [employer] with any questions or concerns. Sean Castaneda MD Hospitalist Progress Note 11/14/2024 Subjective: Admit Date: 11/12/2024 PCP: Roxie Spain Room#: 1C-134/1C-134 A BRIEF HOSPITAL COURSE: Apoorva is a 74 y.o. female with past medical history of CKD, hemodialysis (/), history of blood transfusion, Hypertension, and seizure disorder who presents from [facility] with chief complaint of left upper extremity graft site complication with bloody drainage. She presents as a direct transfer from [facility] due to complications of left upper [...] on November 05, 2024. On evaluation at [facility] ER she was noted to have a white count of 10.9 (down trended from 12.6 the day prior. Hemoglobin 9.3 (increased from 7.0 the day prior). BMP grossly unremarkable for ESRD patient. ED physician at [facility] discussed with vascular surgery and plan for admit with vascular surgery consult. Case was discussed with [place] emergency room physician and will plan to [...] 7.2. Plan was for discharge back to [facility] today 11/13/24 however pt requires new authorization from [facility] to return to the facility. Interval History: Pt seen and evaluated sitting in bed, NAD. Dressing to LUE C/D/I, sensation intact, pulses palpable. Plan for HD treatment today. Auth pending for [facility]. Pt noted to have refused AM labs. [...] for tx today - Discharge back to [facility] pending auth - am labs, replace lytes [...] Emergency Contact: Deshawn Crystal Mobile Relation: Brother Educational Psychology Professor needed? No Secondary Emergency Contact: Edward Ruggiero Mobile Relation: Significant Other Preferred language: Mongolian Educational Psychology Professor needed? No Kailyn Juárez APRN - MACROECONOMICS PROFESSOR Division of Hospitalist Medicine [facility] [1] Past Medical History: Diagnosis Date Chronic kidney disease (CKD) Hemodialysis patient ([facility]) ([facility]) Wednesday, , Wednesday History of blood transfusion 02/27/2022 Hypertension Seizure ([facility]) Developed seizure-like activity on 02/24 [...] Hypertension, and seizure disorder who presents from [facility] with chief complaint of left upper extremity graft site complication with bloody drainage. She presents as a direct transfer from [facility] due to complications of left upper [...] on November 05, 2024. On evaluation at [facility] ER she was noted to have a white count of 10.9 (down trended from 12.6 the day prior. Hemoglobin 9.3 (increased from 7.0 the day prior). BMP grossly unremarkable for ESRD patient. ED physician at [facility] discussed with vascular surgery and plan for admit with vascular surgery consult. Case was discussed with [place] emergency room physician and will plan to [...] 7.2. Plan was for discharge back to [facility] today 11/13/24 however pt requires new authorization from [facility] to return to the facility. Interval [...] Emergency Contact: Deshawn Crystal Mobile Relation: Brother Educational Psychology Professor needed? No Secondary Emergency Contact: Edward Ruggiero Mobile Relation: Significant Other Preferred language: Mongolian Educational Psychology Professor needed? No PARK Madison CNP Division of Hospitalist Medicine [facility] [1] Past Medical History: Diagnosis Date [...] original note were not included. PHYSICAL THERAPY [facility] Initial Evaluation Name/MRN: Apoorva Gonzalez ([id number]) Evaluation Date: 11/13/2024 Date of : 1950 Admission Date: 11/12/2024 12:51 PM Age: 74 y.o. Room/Bed: 1C-134/1C-134 A Discharge Recommendation: Shelter Facility Equipment Needed: No Assessment IMPRESSION: Pt [...] Diagnosis Date Noted Wound dehiscence 11/12/2024 Seizures ([facility]) 11/02/2024 ESRD (end stage renal disease) ([facility]) 11/02/2024 Dialysis patient ([facility]) 11/02/2024 Sepsis, due to unspecified organism, unspecified whether acute organ dysfunction present ([facility]) 10/22/2024 Edema of left lower extremity 10/05/2024 COVID-19 09/14/2024 Shortness of breath 03/02/2024 Pulmonary edema, acute ([facility]) 02/19/2024 Gastrointestinal hemorrhage, unspecified gastrointestinal [...] normal Social/Functional History Patient admitted from [facility]. Assistive Equipment: front wheeled walker Prior Level [...] of Care supervision is transferred to a [facility] Therapy Services Physical Therapist. Goals and/or treatment [...] 01/25/2024 Performed by Chrissy Gilman MD at [facility] ENDOSCOPY IR CVC TUNNELED DIALYSIS CATHETER PLACEMENT 02/27/2022 IR CVC TUNNELED CATHETER PLACEMENT 02/27/2022 Candis Andrade MD [facility] SPECIAL PROCEDURES IR EMBOLIZATION 01/24/2024 IR EMBOLIZATION 01/24/2024 Jovan Glynn MD [facility] SPECIAL PROCEDURES Images from the original note [...] am Chris Wills MD PGY-1, Urology Pager# [phone] 11/13/2024 7:31 AM Addendum 9:04 AM Plan [...] Jim Rader MD PGY-4, General Surgery Pager# [phone] 11/13/2024 9:12 AM [1] acetaminophen, 1,000 mg, [...] vascular surgery standpoint. documented in this encounter [facility] 11-15-2024 Nurse Note 03:50 Pt refusing daily lab work, FREDI Decker notified. NO new orders [facility] 11-14-2024 Nurse Note Patient Name: Apoorva Gonzalez Patient : 1950 Acct: [id number] Date of Admission: 11/12/2024 Room[facility]Bed: [facility] A Code Status: DNR-CCA Allergies: [...] - Before each treatment: Dialysis Machine No.: [id number] RO Machine Number: [id number] Dialyzer Lot No.: [id number] Tubing Lot Number: [id number] All Connections Secure: Yes Venous Parameters Set: Yes Arterial Parameters Set: Yes NS Bag: Yes Saline Line Double Clamped: Yes Dialyzer: Nipro Prime Volume (mL): 200 mL RO Machine Number: [id number] RO Machine Log Sheet Completed: Yes Machine Alarm Self Test: Completed, Passed (The machine passed all tests at 1208) (11/14/24 1209) Air Foam Detector: Proper Function, Tested Extracorporeal Circuit Tested for Integrity: Yes Machine Conductivity: 13.8 Manual Conductivity: 13.6 Manual Ph: 7.2 Bleach Test (Neg): Yes Bath Temperature: 36 C (96.8 F) Conductivity Meter Serial #: [id number] Machine Functioning Alarm Free? Yes Dialysis Bath: [...] and report given to Primary RN at 0274. Primary RN (First Initial, Last Name, Title): [...] End stage congestive heart failure (HCC) [3] [facility] 11-14-2024 Consult note Associated Order (s): IP CONSULT TO PSYCHIATRY Images from the original note were not included. [facility] Department of Psychiatry Nurse Practitioner Consult Note Please contact Hot Header Operator Psychiatry Listed in [facility] On-Call Finder Wed-Fri: From 1700 - 0800 and Weekends IDENTIFYING INFORMATION Name: Apoorva Gonzalez : 1950 TODAY'S DATE: 11/14/24 ADMISSION DATE: 11/12/2024 Reason for Psychiatric Consult: depression, hallucinations Requesting Physician: Dr. Castaneda Consulting Practitioner: MAYANK Mckenzie Hospital Day: 2 SUBJECTIVE: CHIEF COMPLAINT: CC: Chief Complaint Patient presents with Wound Check EMS from [place] for bleeding fistula in left upper arm. DC from [facility] to [place] previously. Principal Problem: Wound dehiscence History obtained from: Patient, Chart Review, and Staff HISTORY OF PRESENT ILLNESS: HPI: Apoorva Gonzalez is a 74 y.o., female who was hospitalized at [facility] for Wound dehiscence on 11/12/2024. PMH of hypertension, ESRD, seizure, hemodialysis (Wednesday, , Wednesday), [facility] AV graft placement (Dr. 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 Pt sent to ED by facility due to increased bleeding at site and transferred to [facility] for vascular surgery eval. Psychiatry consulted for [...] PAST SURGICAL HISTORY Surgical History[5] Social History: [facility] since last hospitalization, finds family to [...] Depression: Not at risk (08/31/2024) Received from [facility] PHQ-2 Patient Health Questionnaire-2 Score: 0 Housing Stability: Low Risk (10/31/2024) Housing Stability Vital Sign Unable to Pay for Housing in the Last Year: No Number of Times Moved in the Last Year: 0 Homeless in the Last Year: No Utilities: Not At Risk (10/31/2024) [facility] Utilities Threatened with loss of utilities: No Health Literacy: Not on file OBJECTIVE: PHYSICAL/PSYCHIATRIC EXAM: Vitals: Vitals: 11/14/24 1445 11/14/24 1500 11/14/24 1515 11/14/24 1530 BP: 150/72 145/91 160/79 135/96 BP Location: Patient Position: Pulse: 74 78 81 84 Resp: Temp: TempSrc: SpO2: Weight: Height: Physical Exam: Physical Exam Vitals and nursing note reviewed. Exam conducted with a web design instructor present. Constitutional: Appearance: Normal appearance. HENT: Head: [...] QT Interval 338 QTC Interval 458 P [place] 53 QRS [place] 10 T Wave [place] 161 [place] Interval 107 Impression Sinus tachycardia LVH with [...] Follow up: peripherally as able Please contact Hot Header Operator Psychiatry Listed in [facility] On-Call Finder for urgent needs Mon-Fri: From [...] 25 mg, IntraVENous, q6h PRN, Kailyn Juárez, MACHINE CLERICAL VERIFIER - MACROECONOMICS PROFESSOR levETIRAcetam (Keppra) tablet 500 mg, 500 mg, [...] Chronic kidney disease (CKD) Hemodialysis patient (CMS/HCC) ([facility]) Wednesday, , Wednesday History of blood transfusion 02/27/2022 Hypertension Seizure ([facility]) Developed seizure-like activity on 02/24 during hospital admission [4] Family History Problem Relation Name Age of Onset Dementia Mother Stroke Father Prostate cancer Brother 69 Breast cancer Cousin 32 Stomach cancer Mother's Sister 70 [5] Past Surgical History: Procedure Laterality Date AV FISTULA PLACEMENT Left 08/07/2022 COLONOSCOPY N/A 01/25/2024 Performed by Chirssy Gilman MD at [facility] ENDOSCOPY IR CVC TUNNELED DIALYSIS CATHETER PLACEMENT 02/27/2022 IR CVC TUNNELED CATHETER PLACEMENT 02/27/2022 Candis Andrade MD [facility] SPECIAL PROCEDURES IR EMBOLIZATION 01/24/2024 IR EMBOLIZATION 01/24/2024 Jovan Glynn MD [facility] SPECIAL PROCEDURES [6] Social History Tobacco Use [...] Wound dehiscence End stage congestive heart failure ([facility]) [facility] [employer] Phone: 11-14-2024 Consult note Associated Order (s): IP CONSULT TO PSYCHIATRY Images from the original note were not included. [facility] Department of Psychiatry Nurse Practitioner Consult Note Please contact Hot Header Operator Psychiatry Listed in [facility] On-Call Finder Mon-Fri: From 1700 - 0800 and Weekends IDENTIFYING INFORMATION Name: Apoorva Gonzalez : 1950 TODAY'S DATE: 11/14/24 ADMISSION DATE: 11/12/2024 Reason for Psychiatric Consult: depression, hallucinations Requesting Physician: Dr. Castaneda Consulting Practitioner: MAYANK Mckenzie Hospital Day: 2 SUBJECTIVE: CHIEF COMPLAINT: CC: Chief Complaint Patient presents with Wound Check EMS from [place] for bleeding fistula in left upper arm. DC from [facility] to [place] previously. Principal Problem: Wound dehiscence History obtained from: Patient, Chart Review, and Staff HISTORY OF PRESENT ILLNESS: HPI: Apoorva Gonzalez is a 74 y.o., female who was hospitalized at [facility] for Wound dehiscence on 11/12/2024. PMH of hypertension, ESRD, seizure, hemodialysis (Wednesday, , Wednesday), PSH AV graft placement (Dr. 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 Pt sent to ED by facility due to increased bleeding at site and transferred to [facility] for vascular surgery eval. Psychiatry consulted for [...] PAST SURGICAL HISTORY Surgical History[5] Social History: [facility] since last hospitalization, finds family to [...] Depression: Not at risk (08/31/2024) Received from [facility] PHQ-2 Patient Health Questionnaire-2 Score: 0 Housing Stability: Low Risk (10/31/2024) Housing Stability Vital Sign Unable to Pay for Housing in the Last Year: No Number of Times Moved in the Last Year: 0 Homeless in the Last Year: No Utilities: Not At Risk (10/31/2024) [facility] Utilities Threatened with loss of utilities: No Health Literacy: Not on file OBJECTIVE: PHYSICAL/PSYCHIATRIC EXAM: Vitals: Vitals: 11/14/24 1445 11/14/24 1500 11/14/24 1515 11/14/24 1530 BP: 150/72 145/91 160/79 135/96 BP Location: Patient Position: Pulse: 74 78 81 84 Resp: Temp: TempSrc: SpO2: Weight: Height: Physical Exam: Physical Exam Vitals and nursing note reviewed. Exam conducted with a web design instructor present. Constitutional: Appearance: Normal appearance. HENT: Head: [...] QT Interval 338 QTC Interval 458 P [place] 53 QRS [place] 10 T Wave [place] 161 [place] Interval 107 Impression Sinus tachycardia LVH with [...] Follow up: peripherally as able Please contact Hot Header Operator Psychiatry Listed in [facility] On-Call Finder for urgent needs Mon-Fri: From [...] 25 mg, IntraVENous, q6h PRN, Kailyn Juárez, MACHINE CLERICAL VERIFIER - MACROECONOMICS PROFESSOR levETIRAcetam (Keppra) tablet 500 mg, 500 mg, Oral, Daily, Jamie Fling, DO, 500 mg at 11/14/24 0745 melatonin tablet 5 mg, 5 mg, Oral, Nightly, Jamie Fling, DO, 5 mg at 11/13/241951 naloxone (Narcan) injection 0.4 mg, 0.4 mg, IntraVENous, q5 min PRN, Jamei Fling, DO ondansetron ODT (Zofran-ODT) disintegrating tablet [...] 01/25/2024 Performed by Chrissy Gilman MD at [facility] ENDOSCOPY IR CVC TUNNELED DIALYSIS CATHETER PLACEMENT 02/27/2022 IR CVC TUNNELED CATHETER PLACEMENT 02/27/2022 Candis Andrade MD [facility] SPECIAL PROCEDURES IR EMBOLIZATION 01/24/2024 IR EMBOLIZATION 01/24/2024 Jovan Glynn MD [facility] SPECIAL PROCEDURES [6] Social History Tobacco Use [...] Wound dehiscence End stage congestive heart failure ([facility]) Associated Order(s): Inpatient consult to Nephrology [facility] Nephrology Consult Note Inpatient consult to Nephrology [...] from avg site. She was transferred to [facility] for vascular surgery evaluation. Pt seen in [...] any questions or concerns Karis Stone APRN MACROECONOMICS PROFESSOR A-G PULMONOLOGY TECHNICIAN [facility] [phone] Pt seen and examined independently by me. I reviewed with Karis Stone APRN-TAMIR the saavedra portions of the medical history and the findings on physical examination. I discussed the patient s asavedra portions of the diagnosis and concur with [...] hypertension, ESRD, seizure, hemodialysis (Wednesday, , Wednesday), [facility] AV graft placement (Dr. 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 Patient was admitted 10/22-11/11. During that time her graft was excised, she underwent repeat surgery for hematoma evacuation, infectious disease was consulted and recommended Bactrim renally dosed through November 13. She represented today at [facility] for bleeding from her LUE former graft site. She was transferred to [facility] for vascular surgery evaluation. Work up shows [...] tomorrow after repeat evaluation - LAURA Jimenez container finisher for Dr. Fernandez Medical History[1] Surgical History[2] [...] present, keeps thinking she is in her [facility] Psychiatric: Mood and Affect: Mood normal. Behavior: [...] 01/25/2024 Performed by Chrissy Gilman MD at [facility] ENDOSCOPY IR CVC TUNNELED DIALYSIS CATHETER PLACEMENT 02/27/2022 IR CVC TUNNELED CATHETER PLACEMENT 02/27/2022 Candis Andrade MD [facility] SPECIAL PROCEDURES IR EMBOLIZATION 01/24/2024 IR EMBOLIZATION 01/24/2024 Jovan Glynn MD [facility] SPECIAL PROCEDURES [3] [4] PRN medications: collagenase, [...] 11:14 AM EDT documented in this encounter [facility] 11-14-2024 Progress note Formatting of t his note might be different from the original. ACID STRENGTH INSPECTOR spoke with [facility] [phone] son regarding [employer] benefits during a skilled stay in a facility. How insurance dictates skilled time in a SNF. Educated on medicaid, rules, and Patient liability in a SNF. ACID STRENGTH INSPECTOR assisted with medicaid application and faxed to [email or web address] to sign paperwork and send back to ACID STRENGTH INSPECTOR to file with [facility]. fruit farmworker to follow. [facility] 11-14-2024 Nurse Note 03:30 Pt refusing blood work. PULMONOLOGY TECHNICIAN dori made aware. [facility] 11-13-2024 Note Referral placed to [facility] via [facility] per [facility] request. Await review and response regarding ability to accept. TCC notified. [facility] 11-13-2024 Progress note Formatting of t his note might be different from the original. Referral placed to [facility] request. Await review and response regarding ability to accept. TCC notified. [facility] 11-13-2024 Progress note Formatting of t his note might be different from the original. Care Management Progress Note Short Medical why still here: Awaiting insurance authorization for return to SNF. Planned Discharge Disposition: Shelter Facility Barriers/Today we still Wait: Facility pre-cert Length of Stay (Days): 1 GMLOS: No GMLOS Documented - CM referral acknowledged. - TCC received update that discharge order had been written. - TCC spoke with the patient to introduce self/role and the patient stated she did want to return to the facility. - TCC tasked JEWELRY CONSULTANT to initiate referral in [facility]. - TCC spoke with admission staff May at [facility] who verified a new auth will be needed for the patient to return to the facility. - TCC tasked JEWELRY CONSULTANT to initiate [employer] authorization and updated attending that authorization will be need to be approved before the patient can be discharge back to her SNF. Attending acknowledged the update. _ TCC will continue to follow. [facility] 11-13-2024 Hospital Discharge instructions PARK Ramirez CNP [...] MD PCP: Roxie Spain Discharging Nurse: [facility] Unit/Room#: 1C-134/1C-134 A Discharging Unit Phone Number: [phone] Emergency Contact: Extended Emergency Contact Information Primary Emergency Contact: Deshawn Crystal Mobile Relation: Brother Educational Psychology Professor needed? No Secondary Emergency Contact: RuggieroEdward Mobile Relation: Significant Other Preferred language: Mongolian Educational Psychology Professor needed? No Past Surgical History: Past Surgical History: Procedure Laterality Date AV FISTULA PLACEMENT Left 08/07/2022 COLONOSCOPY N/A 01/25/2024 Performed by Chrissy Gilman MD at [facility] ENDOSCOPY IR CVC TUNNELED DIALYSIS CATHETER PLACEMENT 02/27/2022 IR CVC TUNNELED CATHETER PLACEMENT 02/27/2022 Candis Andrade MD [facility] SPECIAL PROCEDURES IR EMBOLIZATION 01/24/2024 IR EMBOLIZATION 01/24/2024 Jovan Glynn MD [facility] SPECIAL PROCEDURES Immunization History: Immunization History Administered [...] assistance Toileting Minimal assistance Feeding Minimal assistance Muck Miner Independent Med Delivery yes Wound Care Documentation [...] on 11/12/24 Discharging to Facility/ Agency Name: [facility] Address: [address] [place] [address] Fax: Dialysis Facility (if applicable) Name: Address: Dialysis Schedule: Phone: Fax: Pullman Conductor/Clerical Production Worker signature: ICIAN SECTION Name: Apoorva Gonzalez Prognosis: good Condition at Discharge: stable Rehab Potential (if transferring to Rehab): good Recommended Labs or Other Treatments After Discharge: NA The individual is being admitted to a nursing facility directly from an [facility] or a unit of a [facility] that is not operated by or licensed by [facility] under section 5119.14 or 5160-3-15.1 5 The individual requires the level of services provided by a nursing facility for the condition for which he or she was treated in the hospital and, Physician Certification: I certify the above information and transfer of Apoorva Gonzalez is necessary for the continuing treatment of the diagnosis listed and that she requires [facility] facility for less than 30 days. Update Admission H&P: No change in H&P PHYSICIAN SIGNATURE: documented in this encounter [facility] 11-13-2024 Consult note Associated Order (s): Inpatient consult to Nephrology [facility] Nephrology Consult Note Inpatient consult to Nephrology [...] from avg site. She was transferred to [facility] for vascular surgery evaluation. Pt seen in [...] any questions or concerns Karis Stone APRN MACROECONOMICS PROFESSOR A-G PULMONOLOGY TECHNICIAN [facility] [phone] Pt seen and examined independently by me. I reviewed with Karis Stone APRN-TAMIR the saavedra portions of the medical history and the findings on physical examination. I discussed the patient s saavedra portions of the diagnosis and concur with the treatment plan as documented in her note. Please message me through [employer] with any questions or concerns. Sean Castaneda [...] OR ondansetron, oxyCODONE, polyethylene glycol (PEG) 3350 [facility] 11-13-2024 Progress note Formatting of t his note might be different from the original. Patient is from a SNF. 30 day readmission is not warranted. [facility] 11-12-2024 Consult note Associated Order (s): IP CONSULT TO VASCULAR SURGERY Images from the original note were not included. Vascular Surgery Consultation Note Reason for Consult: LUE wound HISTORY OF PRESENT ILLNESS: The patient is a 74 y.o. female with PMHx hypertension, ESRD, seizure, hemodialysis (Wednesday, , Wednesday), [facility] AV graft placement (Dr. 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 Patient was admitted 10/22-11/11. During that time her graft was excised, she underwent repeat surgery for hematoma evacuation, infectious disease was consulted and recommended Bactrim renally dosed through November 13. She represented today at [facility] from [facility] for bleeding from her LUE former graft site. She was transferred to [facility] for vascular surgery evaluation. Work up shows [...] tomorrow after repeat evaluation - LAURA Jimenez container finisher for Dr. Fernandez Medical History[1] Surgical History[2] [...] present, keeps thinking she is in her [facility] Psychiatric: Mood and Affect: Mood normal. Behavior: [...] History of blood transfusion 02/27/2022 Hypertension Seizure ([facility]) Developed seizure-like activity on 02/24 during hospital admission [2] Past Surgical History: Procedure Laterality Date AV FISTULA PLACEMENT Left 08/07/2022 COLONOSCOPY N/A 01/25/2024 Performed by Chrissy Gilman MD at [facility] ENDOSCOPY IR CVC TUNNELED DIALYSIS CATHETER PLACEMENT 02/27/2022 IR CVC TUNNELED CATHETER PLACEMENT 02/27/2022 Candsi Andrade MD [facility] SPECIAL PROCEDURES IR EMBOLIZATION 01/24/2024 IR EMBOLIZATION 01/24/2024 Jovan Glynn MD [facility] SPECIAL PROCEDURES [3] [4] PRN medications: collagenase, [...] Jimenez MD at 11/13/2024 11:14 AM EDT [facility] [employer] Work Phone: 11-12-2024 History and physical note [...] She presents as a direct transfer from [facility] due to complications of left upper [...] on November 05, 2024. On evaluation at [facility] ER she was noted to have a white count of 10.9 (down trended from 12.6 the day prior. Hemoglobin 9.3 (increased from 7.0 the day prior). BMP grossly unremarkable for ESRD patient. ED physician at [facility] discussed with vascular surgery and plan for admit with vascular surgery consult. Case discussed with [place] emergency room physician and will plan to [...] Emergency Contact: Deshawn Crystal Mobile Relation: Brother Educational Psychology Professor needed? No Secondary Emergency Contact: Edward Ruggiero Mobile Relation: Significant Other Preferred language: Mongolian Educational Psychology Professor needed? No [employer] Apoorva Navarro Rajinder : 1950 Primary Care Physician: Roxie Spain The patient and/or family/surrogate voluntarily agreed to participate in ACP services. Patient s cognitive capacity: Intact Code Status: [_] [FULL CODE - Continue all advanced life support: CPR,intubation,invasive procedures] [X_] [DNR-CCA - DO NOT do CPR, intubation] [_] [DNR-EXPRESS CLERK - Comfort care only] [_] DNR form [...] Jamie Camarena DO Division of Hospitalist Medicine [facility] [1] Past Medical History: Diagnosis Date Chronic kidney disease (CKD) Hemodialysis patient (CMS/HCC) (HCC) Wednesday, , Wednesday History of blood transfusion 02/27/2022 Hypertension Seizure ([facility]) Developed seizure-like activity on 02/24 during hospital admission [2] Past Surgical History: Procedure Laterality Date AV FISTULA PLACEMENT Left 08/07/2022 COLONOSCOPY N/A 01/25/2024 Performed by Chrissy Gilman MD at [facility] ENDOSCOPY IR CVC TUNNELED DIALYSIS CATHETER PLACEMENT 02/27/2022 IR CVC TUNNELED CATHETER PLACEMENT 02/27/2022 Candis Andrade MD [facility] SPECIAL PROCEDURES IR EMBOLIZATION 01/24/2024 IR EMBOLIZATION 01/24/2024 Jovan Glynn MD [facility] SPECIAL PROCEDURES [3] Family History Problem Relation [...] Jamie Camarena DO [5] No Known Allergies [employer] Work Phone: 11-12-2024 Note [employer] [facility] 11-12-2024 History and physical note Attending History and Physical Admit Date: 11/12/2024 PCP: Roxie Spain CHIEF COMPLAINT: Left upper extremity wound Reason for Admission: Left upper extremity graft site complication History Obtained From: patient HISTORY OF PRESENT ILLNESS: Apoorva is a 74 y.o. female with past medical history below who presents with chief complaint listed above. She presents as a direct transfer from [facility] due to complications of left upper [...] on November 05, 2024. On evaluation at [facility] ER she was noted to have a white count of 10.9 (down trended from 12.6 the day prior. Hemoglobin 9.3 (increased from 7.0 the day prior). BMP grossly unremarkable for ESRD patient. ED physician at [facility] discussed with vascular surgery and plan for admit with vascular surgery consult. Case discussed with [place] emergency room physician and will plan to [...] Emergency Contact: Deshawn Crystal Mobile Relation: Brother Educational Psychology Professor needed? No Secondary Emergency Contact: Edward Ruggiero Mobile Relation: Significant Other Preferred language: Mongolian Educational Psychology Professor needed? No AD[employer] PL[employer] Apoorva Navarro [place] : 1950 Primary Care Physician: Roxie Spain The patient and/or family/surrogate voluntarily agreed to participate in ACP services. Patient s cognitive capacity: Intact Code Status: [_] [FULL CODE - Continue all advanced life support: CPR,intubation,invasive procedures] [X_] [DNR-CCA - DO NOT do CPR, intubation] [_] [DNR-EXPRESS CLERK - Comfort care only] [_] DNR form [...] Jamie Camarena DO Division of Hospitalist Medicine [facility] [1] Past Medical History: Diagnosis Date Chronic kidney disease (CKD) Hemodialysis patient (CMS/HCC) (HCC) Wednesday, , Wednesday History of blood transfusion 02/27/2022 Hypertension Seizure (HCC) Developed seizure-like activity on 02/24 during hospital admission [2] Past Surgical History: Procedure Laterality Date AV FISTULA PLACEMENT Left 08/07/2022 COLONOSCOPY N/A 01/25/2024 Performed by Chrissy Gilman MD at [facility] ENDOSCOPY IR CVC TUNNELED DIALYSIS CATHETER PLACEMENT 02/27/2022 IR CVC TUNNELED CATHETER PLACEMENT 02/27/2022 Candis Andrade MD [facility] SPECIAL PROCEDURES IR EMBOLIZATION 01/24/2024 IR EMBOLIZATION 01/24/2024 Jovan Glynn MD [facility] SPECIAL PROCEDURES [3] Family History Problem Relation [...] No Known Allergies documented in this encounter [facility] 11-12-2024 Emergency department Note Moody Harman at bedside for transport to [facility] for admission. Packet/blue card sent with crew. [facility] 11-12-2024 Emergency department Note Moody Harman at bedside for transport to [facility] for admission. Packet/blue card sent with crew. Report called to [facility]. Pt awaiting transport, resting comfortably at this time, side rails up x2, curtain remains open for safety. Emergency Department Encounter [facility] ED Patient: Apoorva Gonzalez : 1950 Date [...] to admit the patient to medicine at [facility], and will see her inpatient. Patient care also discussed with Dr. Camarena, [facility] hospitalist, who accepted the patient for [...] dictating provider for clarification.) Lorna Moore MD [facility] Roz Moore MD 11/12/24 1444 documented in this encounter [facility] 11-12-2024 Emergency department Note Report called to [facility]. Pt awaiting transport, resting comfortably at this time, side rails up x2, curtain remains open for safety. [facility] 11-12-2024 Physician Emergency department Note Emergency Department Encounter [facility] ED Patient: Apoorva Gonzalez : 1950 Date [...] to admit the patient to medicine at [facility], and will see her inpatient. Patient care also discussed with Dr. Camarena, [facility] hospitalist, who accepted the patient for [...] [employer] Roz Moore MD 11/12/24 1444 [facility] 11-11-2024 Nurse Note [facility] Called report to geraldine at [facility]. Pt brother at bedside aware of dc. Patient Name: Apoorva Gonzalez Patient : 1950 Acct: [id number] Date of Admission: 10/22/2024 Room[facility]Bed: [facility] A Code Status: DNR-CCA Allergies: Allergies[1] [...] - Before each treatment: Dialysis Machine No.: [id number] RO Machine Number: [id number] Dialyzer Lot No.: [id number] Tubing Lot Number: [id number] All Connections Secure: Yes Venous Parameters Set: Yes Arterial Parameters Set: Yes NS Bag: Yes Saline Line Double Clamped: Yes Dialyzer: Nipro Prime Volume (mL): 200 mL RO Machine Number: [id number] RO Machine Log Sheet Completed: Yes Machine Alarm Self Test: Completed, Passed (The machine passed all tests at 0925) (11/11/24 0936) Air Foam Detector: Tested, Proper Function Extracorporeal Circuit Tested for Integrity: Yes Machine Conductivity: 13.9 Manual Conductivity: 14.2 Manual Ph: 7.4 Bleach Test (Neg): Yes Bath Temperature: 36 C (96.8 F) Conductivity Meter Serial #: [id number] Machine Functioning Alarm Free? Yes Dialysis Bath: K+ (Potassium): 2 Ca+ (Calcium): 2.5 Na+ (Sodium): 138 HCO3 (Bicarb): 32 Bicarbonate Concentrate Lot No.: [id number] Acid Concentrate Lot No.: [id number] Chlorine Testing - Before each treatment and [...] (end stage renal disease) (HCC) Dialysis patient ([facility]) [3] Wound Care follow up visit for Pressure Injury Prevention. Pt's Arnol score= 14 on 11/10 Pt's pressure points assessed. Pt's Heels, Left elbow, Occiput and ears all intact. Rosey wrap in place to left upper extremity. Laton and blanchable tissues noted to bilateral heels. Pt currently followed by Wound PULMONOLOGY TECHNICIAN group for wounds to sacrum extending to left buttock. For sacrum/left buttock wound assessment and treatment plan, please see Wound/Ostomy PULMONOLOGY TECHNICIAN progress notes. Instructed pt on pressure injury prevention and importance of turning/postioning every 2hrs while in bed and every 15 min while sitting in chair. Instructed on use and care of waffle chair cushion. Verbalized understanding. Prevention Measures in place, including: [place] sheet with pillows/wedges, Foam heel protectors (obtained and applied), Heels elevated off bed on pillows, Zinc/Moisture Barrier ointment, Waffle chair cushion. Skin Care precaution order set in place. Will continue to follow pt. Please Vocera for any questions or concerns. Kirti High RN Patient Name: Apoorva Gonzalez Patient : 1950 Acct: [id number] Date of Admission: 10/22/2024 Room[facility]Bed: [facility] A Code Status: DNR-CCA Allergies: Allergies[1] [...] - Before each treatment: Dialysis Machine No.: [id number] RO Machine Number: [id number] Dialyzer Lot No.: [id number] Tubing Lot Number: [id number] All Connections Secure: Yes Venous Parameters Set: Yes Arterial Parameters Set: Yes NS Bag: Yes Saline Line Double Clamped: Yes Dialyzer: Nipro Prime Volume (mL): 250 mL RO Machine Number: [id number] RO Machine Log Sheet Completed: Yes Machine Alarm Self Test: Completed, Passed (11/09/24751) Air Foam Detector: Tested, Proper Function, pH Reading Extracorporeal Circuit Tested for Integrity: Yes Machine Conductivity: 13.8 Manual Conductivity: 14 Manual Ph: 7.2 Bleach Test (Neg): Yes Bath Temperature: 36 C (96.8 F) Conductivity Meter Serial #: [id number] Machine Functioning Alarm Free? Yes Dialysis Bath: K+ (Potassium): 2 Ca+ (Calcium): 2.5 Na+ (Sodium): 138 HCO3 (Bicarb): 32 Bicarbonate Concentrate Lot No.: [id number] Acid Concentrate Lot No.: [id number] Chlorine Testing - Before each treatment and [...] 120 mmHg 70 600 Yes B. Marrow, MACROECONOMICS PROFESSOR & vasc surgery at [facility], increase UF goal if tolerated, [...] currently receiving 1 unit of blood. Notified inpatient care manager rn of complaints of pain and findings awaiting reply. Blood sugar 67 orange juice given pt resting quietly , denies any s/s of hypoglycemia. 1L removed Patient Name: Apoorva Gonzalez Patient : 1950 Acct: [id number] Date of Admission: 10/22/2024 Room[facility]Bed: [facility] A Code Status: DNR-CCA Allergies: Allergies[1] [...] Regular Other (Comment) None (Room air) Diminished [place]aton Warm;Dry Soft;Rounded Active Right lower extremity;Left lower extremity -- None None +1 +2 11/07/24 1259 Alert (0) x4 Regular Other (Comment) None (Room air) Diminished [place] Warm;Dry Soft;Rounded Active Right lower extremity;Left lower [...] - Before each treatment: Dialysis Machine No.: [id number] RO Machine Number: [id number] Dialyzer Lot No.: [id number] Tubing Lot Number: [id number] All Connections Secure: Yes Venous Parameters Set: Yes Arterial Parameters Set: Yes NS Bag: Yes Saline Line Double Clamped: Yes Dialyzer: Nipro Prime Volume (mL): 200 mL RO Machine Number: [id number] RO Machine Log Sheet Completed: Yes Machine Alarm Self Test: Completed, Passed (11/07/24942) Air Foam Detector: Tested, Proper Function, pH Reading Extracorporeal Circuit Tested for Integrity: Yes Machine Conductivity: 13.6 Manual Conductivity: 13.4 Manual Ph: 7.4 Bleach Test (Neg): Yes Bath Temperature: 36 C (96.8 F) Conductivity Meter Serial #: [id number] Machine Functioning Alarm Free? Yes Dialysis Bath: K+ (Potassium): 2 Ca+ (Calcium): 2.5 Na+ (Sodium): 138 HCO3 (Bicarb): 32 Bicarbonate Concentrate Lot No.: [id number] Acid Concentrate Lot No.: [id number] Chlorine Testing - Before each treatment and [...] Name: Apoorva Gonzalez Patient : 1950 Acct: [id number] Date of Admission: 10/22/2024 Room[facility]Bed: [facility] A Code Status: DNR-CCA Allergies: Allergies[1] [...] - Before each treatment: Dialysis Machine No.: [id number] Machine Number: [id number] Dialyzer Lot No.: [id number] Tubing Lot Number: [id number] All Connections Secure: Yes Venous Parameters Set: Yes Arterial Parameters Set: Yes NS Bag: Yes Saline Line Double Clamped: Yes Dialyzer: Nipro Prime Volume (mL): 250 mL RO Machine Number: [id number] RO Machine Log Sheet Completed: Yes Machine Alarm Self Test: Completed, Passed (11/04/24 0940) Air Foam Detector: Tested, Proper Function, pH Reading Extracorporeal Circuit Tested for Integrity: Yes Machine Conductivity: 13.9 Manual Conductivity: 14 Manual Ph: 7.2 Bleach Test (Neg): Yes Bath Temperature: 36 C (96.8 F) Conductivity Meter Serial #: [id number] Machine Functioning Alarm Free? Yes Dialysis Bath: K+ (Potassium): 2 Ca+ (Calcium): 2.5 Na+ (Sodium): 138 HCO3 (Bicarb): 32 Bicarbonate Concentrate Lot No.: [id number] Acid Concentrate Lot No.: [id number] Chlorine Testing - Before each treatment and [...] Name: Apoorva Gonzalez Patient : 1950 Acct: [id number] Date of Admission: 10/22/2024 Room[facility]Bed: [facility] A Code Status: DNR-CCA Allergies: Allergies[1] [...] - Before each treatment: Dialysis Machine No.: [id number] RO Machine Number: [id number] Dialyzer Lot No.: [id number] Tubing Lot Number: [id number] All Connections Secure: Yes Venous Parameters Set: Yes Arterial Parameters Set: Yes NS Bag: Yes Saline Line Double Clamped: Yes Dialyzer: Nipro Prime Volume (mL): 200 mL RO Machine Number: [id number] RO Machine Log Sheet Completed: Yes Machine Alarm Self Test: Completed, Passed (The machine passed all tests at 1520.) (11/02/241526) Air Foam Detector: Proper Function, Tested Extracorporeal Circuit Tested for Integrity: Yes Machine Conductivity: 13.5 Manual Conductivity: 13.6 Manual Ph: 7.2 Bleach Test (Neg): Yes Bath Temperature: 36 C (96.8 F) Conductivity Meter Serial #: [id number] Machine Functioning Alarm Free? Yes Dialysis Bath: K+ (Potassium): 2 Ca+ (Calcium): 2.5 Na+ (Sodium): 138 HCO3 (Bicarb): 32 Bicarbonate Concentrate Lot No.: [id number] Acid Concentrate Lot No.: [id number] Chlorine Testing - Before each treatment and [...] 80 600 Yes Patient's signifigant other at [facility], UF Removed- 746 11/02/24 1715 400 mL/min [...] number verified in chart Patient transferred to [facility] with the transport team.she is going to [facility] room number [phone].Handoff given to the [facility] nurse. Patient Name: Apoorva Gonzalez Patient : 1950 Acct: [id number] Date of Admission: 10/22/2024 Room/Bed: B2258/B2-258 A [...] 10/31/24 0815 -- -- -- -- -- Laton;Red Warm;Dry Soft;Flat Active Left lower extremity;Right lower extremity Non-pitting None None None None 10/31/24 1116 Alert (0) 2 Regular None (Room air) Diminished [place] Warm;Dry Soft -- Left lower extremity -- -- -- -- +1 10/31/24 1440 Alert (0) 2 Regular None (Room air) Diminished [place] Warm;Dry Soft Active Left lower extremity -- [...] - Before each treatment: Dialysis Machine No.: [id number] RO Machine Number: [id number] Dialyzer Lot No.: [id number] Tubing Lot Number: [id number] All Connections Secure: Yes Venous Parameters Set: Yes Arterial Parameters Set: Yes NS Bag: Yes Saline Line Double Clamped: Yes Dialyzer: Nipro Prime Volume (mL): 200 mL RO Machine Number: [id number] RO Machine Log Sheet Completed: Yes Machine Alarm Self Test: Completed, Passed (Machine passed all tests at 1057) (10/31/24 1116) Air Foam Detector: Tested, Proper Function Extracorporeal Circuit Tested for Integrity: Yes Machine Conductivity: 14.1 Manual Conductivity: 14 Manual Ph: 7.4 Bleach Test (Neg): Yes Bath Temperature: 36 C (96.8 F) Conductivity Meter Serial #: [id number] Machine Functioning Alarm Free? Yes Dialysis Bath: K+ (Potassium): 3 Ca+ (Calcium): 2.5 Na+ (Sodium): 138 HCO3 (Bicarb): 32 Bicarbonate Concentrate Lot No.: [id number] Acid Concentrate Lot No.: [id number] Chlorine Testing - Before each treatment and [...] Name: Apoorva Gonzalez Patient : 1950 Acct: [id number] Date of Admission: 10/22/2024 Room[facility]Bed: [facility] A Code Status: DNR-CCA Allergies: [...] 10/28/24 0735 -- -- -- -- Clear;Diminished Laton;Red Warm;Dry Soft Active -- -- -- -- -- 10/28/24 09 Alert (0) 4 Regular None (Room air) Clear;Diminished [place]aton;Red Warm;Dry Soft Active Left lower extremity;Right lower extremity -- +1 +1 Patient is agreeable to dialysis, consent verified prior to treatment 10/28/24 1225 Alert (0) 4 Regular None (Room air) Clear;Diminished Laton;Red Warm;Dry Soft Active Left lower extremity Non-pitting [...] - Before each treatment: Dialysis Machine No.: [id number] RO Machine Number: [id number] Dialyzer Lot No.: [id number] Tubing Lot Number: [id number] All Connections Secure: Yes Venous Parameters Set: Yes Arterial Parameters Set: Yes NS Bag: Yes Saline Line Double Clamped: Yes Dialyzer: Nipro Prime Volume (mL): 200 mL RO Machine Number: [id number] RO Machine Log Sheet Completed: Yes Machine Alarm Self Test: Completed, Passed (The machine passed all tests at 0851) (10/28/24 09) Air Foam Detector: Tested, Proper Function Extracorporeal Circuit Tested for Integrity: Yes Machine Conductivity: 14 Manual Conductivity: 14.2 Manual Ph: 7.4 Bleach Test (Neg): Yes Bath Temperature: 36 C (96.8 F) Conductivity Meter Serial #: [id number] Machine Functioning Alarm Free? Yes Dialysis Bath: K+ (Potassium): 3 Ca+ (Calcium): 2.5 Na+ (Sodium): 138 HCO3 (Bicarb): 32 Bicarbonate Concentrate Lot No.: [id number] Acid Concentrate Lot No.: [id number] Chlorine Testing - Before each treatment and [...] Name: Apoorva Gonzalez Patient : 1950 Acct: [id number] Date of Admission: 10/22/2024 Room/Bed: A Code [...] 1035. Report Received from Primary RN at 0936. Primary RN (First Initial, Last Name, Title): [...] - Before each treatment: Dialysis Machine No.: [id number] Machine Number: [id number] Dialyzer Lot No.: [id number] Tubing Lot Number: [id number] All Connections Secure: Yes Venous Parameters Set: Yes Arterial Parameters Set: Yes NS Bag: Yes Saline Line Double Clamped: Yes Dialyzer: Nipro Prime Volume (mL): 200 mL Machine Number: [id number] RO Machine Log Sheet Completed: Yes Machine Alarm Self Test: Completed, Passed (10/26/24 1035) Air Foam Detector: Tested, Proper Function, pH Reading Extracorporeal Circuit Tested for Integrity: Yes Machine Conductivity: 14 Manual Conductivity: 14 Manual Ph: 7.2 Bleach Test (Neg): Yes Bath Temperature: 36 C (96.8 F) Conductivity Meter Serial #: [id number] Machine Functioning Alarm Free? Yes Dialysis Bath: K+ (Potassium): 3 Ca+ (Calcium): 2.5 Na+ (Sodium): 138 HCO3 (Bicarb): 32 Bicarbonate Concentrate Lot No.: [id number] Acid Concentrate Lot No.: [id number] Chlorine Testing - Before each treatment and [...] mmHg 130 mmHg 100 600 Yes LVSD, CASINO MANAGER aware of BP 10/26/24 1300 350 mL/min 470 ml/hr -120 mmHg 130 mmHg 100 600 Yes LVSD, CASINO MANAGER aware of BP, waiting on reply from [...] Name: Apoorva Gonzalez Patient : 1950 Acct: [id number] Date of Admission: 10/22/2024 Room/Bed: [facility] A Code Status: Full Code Allergies: Allergies[1] [...] - Before each treatment: Dialysis Machine No.: [id number] RO Machine Number: [id number] Dialyzer Lot No.: [id number] Tubing Lot Number: [id number] All Connections Secure: Yes Venous Parameters Set: Yes Arterial Parameters Set: Yes NS Bag: Yes Saline Line Double Clamped: Yes Dialyzer: Nipro Prime Volume (mL): 200 mL RO Machine Number: [id number] RO Machine Log Sheet Completed: Yes Machine Alarm Self Test: Completed, Passed (Machine passed all tests at 0916) (10/24/24 0919) Air Foam Detector: Tested, Proper Function Extracorporeal Circuit Tested for Integrity: Yes Machine Conductivity: 14.0 Manual Conductivity: 14.2 Manual Ph: 7.4 Bleach Test (Neg): Yes Bath Temperature: 36 C (96.8 F) Conductivity Meter Serial #: [id number] Machine Functioning Alarm Free? Yes Dialysis Bath: [...] back to the ICU. Patient arrived from [facility] for temporary central line placement. Dr. ruvalcaba in to speak with the patient/family regarding procedure, and consent was obtained. Patient's lab values and allergies were reviewed. Patient was placed supine on exam table, prepped and draped in sterile fashion. Telemetry monitors were placed. IR Procedures: Apoorva is here at [place] from the ICU for a TLC (Temp [...] ready. Patient transported to ICU by Nursing Tape Librarian and Kacey RN Report called to [place] CASINO MANAGER. Wound Care consulted for Pressure Injury Prevention. Pt's Arnol score= 13 on 10/23 Pt's pressure points assessed. Pt turned with max assist of 2 (this RN and Wound PULMONOLOGY TECHNICIAN) for posterior assessment. Pt's Heels, Back, Elbows, Occiput and ears all intact. Unstageable pressure injury noted to sacrum extending to left buttock. Wound PULMONOLOGY TECHNICIAN present at bedside for concurrent skin assessment. For sacrum/left buttock wound assessment and treatment plan, please see Wound/Ostomy PULMONOLOGY TECHNICIAN progress notes. Prevention Measures in place, including: [...] Kirti High RN documented in this encounter [facility] 11-11-2024 Note [facility] 11-11-2024 Hospital course Narrative Hospitalist Discharge Summary [...] Complexity: follow up within 7-14 calendar days (90475) [x] Severe Complexity: follow up within 7 calendar days (29142) Follow up Testing, Pending results or Referrals [...] Gerard Carrillo DO Division of Hospitalist Medicine [facility] 11/11/2024, 3:40 PM [1] Past Medical History: Diagnosis Date Chronic kidney disease (CKD) Hemodialysis patient (CMS/HCC) (HCC) Wednesday, , Wednesday History of blood transfusion 02/27/2022 Hypertension Seizure (HCC) Developed seizure-like activity on 02/24 during hospital admission documented in this encounter [facility] [employer] 11-11-2024 History of Present illness Narrative Nephrology [...] HD TTS , Please message me through [employer] with any questions or concerns. Jose G [...] between incision sites w/o interval change. Good prosthetics assistant strength and sensation. Rewrapped w/ compression dressing [...] directly with any concerns WDW Dr. Jimenez container finisher for Dr. Fernandez Cosigned by Dee Jimenez MD at 11/11/2024 1:23 PM EDT Associated attestation - Dee Jimenez MD - 11/11/2024 1:23 PM EDT I have evaluated the patient and agree with the resident assessment and plan except for additional comments made in this note. Hospitalist Progress Note 11/10/2024 Subjective: Admit Date: 10/22/2024 PCP: Roxie Spain Room#: W6-227/W6-100 A BRIEF HOSPITAL COURSE: 74-year-old female presenting [...] Emergency Contact: Deshawn Crystal Mobile Relation: Brother Educational Psychology Professor needed? No Secondary Emergency Contact: Edward Ruggiero Mobile Relation: Significant Other Preferred language: Mongolian Educational Psychology Professor needed? No Gerard Carrillo DO Division of Hospitalist Medicine [facility] [1] Past Medical History: Diagnosis Date [...] with ONS and diet once appropriate; noted MD/MACROECONOMICS PROFESSOR had been documenting Severe Malnutrition (until 10/31)) [...] Accumulation: No significant fluid accumulation (per flowsheet) Patented Hogshead Assembler Strength: Not Performed Nutrition Assessment: Pt with previously noted PMH including ESRD on HD, Seizures, HTN, HLD, recent admission to OSH for sudden cardiac arrest 2/2 right thigh/hip abscess s/p I&D 08/16 presented initially to [facility] from [facility] on 10/22 due to AMS; in ED pt noted to be febrile 101.3 at [facility], tachycardic, tachypneic and with elevated WBC, received IV fluid bolus, antibiotics, admitted to [facility] for further work up; Critical care consulted the following day as pt remained febrile, tachycardic and tachypneic, WBC count also continuing to increase with worsening anemia; pt has had multiple admissions 08/14 to 08/24 at [facility] for cardiac arrest, 08/26 to 09/06 [...] catheter placed on discharge on 10/12; at [facility] PT/OT/LP, ID, Nephrology, and Wound Care consulted; pt was transferred out of ICU services to medical services on 10/24, noted to be receiving Meropenem and Vancomycin IV (stopped, transitioned to oral abx) for infected pressure ulcer on left buttocks; at [facility] Palliative Care was following, speaking with pt's brother, code status changed to DNR-CCA; pt noted to need fistula placement for HD, has temp HD cath in place, transferred to [facility] 10/31 for new fistula placement; here Vascular [...] ROSEY compression and elevating extremity, considering DDAVP. DATA CONVERSION DEVELOPER following (signed off previously, diet progressed to [...] bed scale) % Weight Change (Calculated): -1.2 [place] Body Weight (lbs) (Calculated): 120 lbs [place] Body Weight (Kg) (Calculated): 55 kg % [place] Body Weight (Calculated): 97.7 % BMI (kg/m2) [...] Alexus Denney RD Contact: Secure chat or *[phone] [facility] - Infectious Diseases Attending Progress [...] any questions or concerns Karis Stone APRN MACROECONOMICS PROFESSOR A-G PULMONOLOGY TECHNICIAN [facility] [phone] Pt seen and examined independently by me. I reviewed with Karis Stone APRN-MACROECONOMICS PROFESSOR the saavedra portions of the medical history and the findings on physical examination. I discussed the patient s saavedra portions of the diagnosis and concur with the treatment plan as documented in her note. Please message me through [employer] with any questions or concerns. Sean Castaneda [...] between incision sites w/o interval change. Good prosthetics assistant strength and sensation. Rewrapped w/ compression dressing [...] edge, no obvious additional active bleed. Equal prosthetics assistant strength, 2+ palpable radial pulses and sensation [...] Fernandez Cosigned by Raffy Fernandez MD at 11/09/2024 3:14 PM EDT [...] with any questions or concerns Karis David-G PULMONOLOGY TECHNICIAN [facility] [phone] Pt seen and examined independently by me. I reviewed with MAYANK Mensah the saavedra portions of the medical history and the findings on physical examination. I discussed the patient s saavedra portions of the diagnosis and concur with the treatment plan as documented in her note. Please message me through [employer] with any questions or concerns. Sean Castaneda [...] Emergency Contact: Deshawn Crystal Mobile Relation: Brother Educational Psychology Professor needed? No Secondary Emergency Contact: Edward Ruggiero Mobile Relation: Significant Other Preferred language: Mongolian Educational Psychology Professor needed? No Gerard Carrillo DO Division of Hospitalist Medicine [facility] [1] Past Medical History: Diagnosis Date Chronic kidney disease (CKD) Hemodialysis patient ([facility]/HCC) ([facility]) Wednesday, , Wednesday History of blood transfusion 02/27/2022 Hypertension Seizure ([facility]) Developed seizure-like activity on 02/24 [...] Emergency Contact: Deshawn Crystal Mobile Relation: Brother Educational Psychology Professor needed? No Secondary Emergency Contact: Edward Ruggiero Mobile Relation: Significant Other Preferred language: Mongolian Educational Psychology Professor needed? No Gerard Carrillo DO Division of Hospitalist Medicine [facility] [1] Past Medical History: Diagnosis Date [...] any questions or concerns Karis Stone APRN MACROECONOMICS PROFESSOR A-G PULMONOLOGY TECHNICIAN [facility] [phone] Pt seen and examined independently by me. I reviewed with Karis Stone APRN-TAMIR the saavedra portions of the medical history and the findings on physical examination. I discussed the patient s saavedra portions of the diagnosis and concur with the treatment plan as documented in her note. Please message me through Epic with any questions or concerns. Sean Castaneda MD [facility] - Infectious Diseases Attending Progress Note Subjective: ID following- last seen at [facility] on 11/02- transferred to [facility] for Vascualr evaluation of suspected infected LUE [...] or concerns Karis Stone APRN, CNP A-G PULMONOLOGY TECHNICIAN [facility] [phone] Pt seen and examined independently by me. I reviewed with Karis Stone APRN-TAMIR the saavedra portions of the medical history and the findings on physical examination. I discussed the patient s saavedra portions of the diagnosis and concur with the treatment plan as documented in her note. Please message me through [employer] with any questions or concerns. Sean Castaneda [...] Emergency Contact: Deshawn Crystal Mobile Relation: Brother Educational Psychology Professor needed? No Secondary Emergency Contact: Edward Ruggiero Mobile Relation: Significant Other Preferred language: Mongolian Educational Psychology Professor needed? No Gerard Carrillo DO Division of Hospitalist Medicine Acute [facility] [1] Past Medical History: Diagnosis Date Chronic kidney disease (CKD) Hemodialysis patient ([facility]) (HCC) Wednesday, , Wednesday History [...] ONS and liberalized diet; noted MD or MACROECONOMICS PROFESSOR had been documenting Severe Malnutrition since 10/23) [...] ? beyond her baseline at least to hinduism, clavicle however could not quantify today) Fluid Accumulation: Mild (+2 LLE, nonpitting generalized/RLE edema) Patented Hogshead Assembler Strength: Not Performed Nutrition Assessment: Pt with previously noted PMH including ESRD on HD, Seizures, HTN, HLD, recent admission to OSH for sudden cardiac arrest / right thigh/hip abscess s/p I&D 08/16 presented initially to [facility] from [facility] on 10/22 due to AMS; in ED pt noted to be febrile 101.3 at [facility], tachycardic, tachypneic and with elevated WBC, received IV fluid bolus, antibiotics, admitted to [facility] for further work up; Critical care consulted the following day as pt remained febrile, tachycardic and tachypneic, WBC count also continuing to increase with worsening anemia; pt has had multiple admissions 08/14 to 08/24 at [facility] for cardiac arrest, 08/26 to 09/06 at for sepsis believed to be due to an infected right thigh wound and hematoma; [facility] from 09/13-10/12 w/ COVID-19 due to covid-19, electrolyte derangements, Enterobacter cloacae, Klebsiella pneumonia, Klebsiella oxytocin and VR Enterococcus which were treated for complete course, also, had C. difficile colitis which was treated, had tunneled HD catheter placed on discharge on 10/12; at [facility] PT/OT/LP, ID, Nephrology, and Wound Care consulted; pt was transferred out of ICU services to medical services on 10/24, noted to be receiving Meropenem and Vancomycin IV (stopped, transitioned to oral abx) for infected pressure ulcer on left buttocks; at [facility] Palliative Care was following, speaking with pt's brother, code status changed to DNR-CCA; pt noted to need fistula placement for HD, has temp HD cath in place, transferred to [facility] 10/31 for new fistula placement; here Vascular was consulted for same, recommended OR for assessment of AV fistula clot/infection 11/02; s/p further blood transfusion 11/02, 11/05 (hemoglobin today 9.3 mg/dL), 11/04-11/05 pt was having bleeding from AV fistula requiring transfusions, yesterday pt underwent exploration of LUE with evacuation of hematoma; last HD 11/04. DATA CONVERSION DEVELOPER following (signed off last week), diet progressed [...] house tray for lunch however breakfast was south korean toast and coffee, dinner is not a [...] bed scale) % Weight Change (Calculated): -1.2 [place] Body Weight (lbs) (Calculated): 120 lbs [place] Body Weight (Kg) (Calculated): 55 kg % [place] Body Weight (Calculated): 97.7 % BMI (kg/m2) [...] Alexus Denney RD Contact: Secure chat or *[phone] Images from the original note were not included. PHYSICAL THERAPY [facility] Treatment Note Name/MRN: Apoorva Gonzalez ([id number]) Date of : 1950 Age: 74 y.o. Room/Bed: W6-637/W6-637 A Discharge Recommendation: Shelter Facility Equipment Needed: No Assessment Pt motivated [...] any questions or concerns Karis Stone APRN MACROECONOMICS PROFESSOR A-G PULMONOLOGY TECHNICIAN [facility] [phone] Pt seen and examined independently by me. [...] with fever and tachycardia and lethargy to [facility] on 10/22/24. HC POA is partner = Edward and brother Deshawn Recently admitted from 09/13 to 10/12 at [facility] for new onset atrial fibrillation complicated [...] recent infected hematoma which was I&D at [facility] and treated with antibiotics from 08/14-08/24 in which she went under cardiac arrest which was thought to be due to the right thigh and anterior hip abscess - which was drained and she left with wound vac. Returned on 08/26 for expanding hematoma to the right thigh requiring 2 units of pRBC, and transferred to [facility] for IR emobolization of thigh hematoma, but a decision was made not to perform any intervention and she was discharged to SNF on 09/06. 10/22-10/31 [facility] ICU. Patient did not require vasopressors. October 28 transferred to [facility]. October 31 decided to transfer patient to [facility] for vascular assessment of fistula to see [...] History of cardiopulmonary arrest August 2024 at [facility] Extended Emergency Contact Information Primary Emergency Contact: BonillaDeshawn Mobile Relation: Brother Educational Psychology Professor needed? No Secondary Emergency Contact: Edward Ruggiero Mobile Relation: Significant Other Preferred language: Mongolian Educational Psychology Professor needed? No Candy Denis DO Division of Hospitalist Medicine Acute care [facility] [1] Past Medical History: Diagnosis Date [...] sodium chloride 0.9%, sodium chloride 0.9% [4] [facility] PROGRESS NOTE Subjective Interval History: [...] UNIT/GM ointment, , Topical, Daily, Francisco Javier Somesr III, MD, Given at 11/04/24 0822 heparin [...] infusion, 250 mL/hr, IntraVENous, PRN, Romain Meadows, PULMONOLOGY TECHNICIAN sodium chloride 0.9 % infusion, 250 mL/hr, [...] with large clot evacuated (see above), previous Clendenin removed 11/04/2024. Plan to monitor will need [...] Admit Date: 10/22/2024 PCP: Roxie Spain Room#: W6-390/W6-783 A Interval History: AIRCRAFT RESTORER PER CYNTHIA LOMBARDI'S NOTE large amount of [...] with fever and tachycardia and lethargy to [facility] on 10/22/24. HC POA is partner = Edward and brother Deshawn Recently admitted from 09/13 to 10/12 at [facility] for new onset atrial fibrillation complicated [...] recent infected hematoma which was I&D at [facility] and treated with antibiotics from 08/14-08/24 in which she went under cardiac arrest which was thought to be due to the right thigh and anterior hip abscess - which was drained and she left with wound vac. Returned on 08/26 for expanding hematoma to the right thigh requiring 2 units of pRBC, and transferred to [facility] for IR emobolization of thigh hematoma, but a decision was made not to perform any intervention and she was discharged to SNF on 09/06. 10/22-10/31 [facility] ICU. Patient did not require vasopressors. October 28 transferred to [facility]. October 31 decided to transfer patient to [facility] for vascular assessment of fistula to see [...] Emergency Contact: Deshawn Crystal Mobile Relation: Brother Educational Psychology Professor needed? No Secondary Emergency Contact: Edward Ruggiero Mobile Relation: Significant Other Preferred language: Mongolian Educational Psychology Professor needed? No Candy Denis DO Division of Hospitalist Medicine [facility] [1] Past Medical History: Diagnosis Date [...] organism, unspecified whether acute organ dysfunction present ([facility]) Active Problems: Seizures (HCC) ESRD (end stage renal disease) ([facility]) Dialysis patient (HCC) ESRD Stable [...] Grossly Intact VASCULAR: left upper extremity with Clendenin drain in place, old blood draining, old [...] resident s note unless otherwise noted below. Clendenin drain removed from the incision and remained of incision closed with 2 corie. Thin dark fluid evacuated (thin serousanguinous but appears as old blood). The patient tolerated this well. Radial pulse remains palpable. Arm dressed. Will reassess tomorrow. Cultures from surgery remain negative to date. Hospitalist Progress Note 11/04/2024 Subjective: Admit Date: 10/22/2024 PCP: Roxie Spain Room#: W6-637/W6-797 A Interval History: On room air. Hypertensive. No fever. Finishing up dialysis technical sales engineer at bedside In her bed currently D/w [...] with fever and tachycardia and lethargy to [facility] on 10/22/24. HC POA is partner = Edward and brother Deshawn Recently admitted from 09/13 to 10/12 at [facility] for new onset atrial fibrillation complicated [...] recent infected hematoma which was I&D at [facility] and treated with antibiotics from 08/14-08/24 in which she went under cardiac arrest which was thought to be due to the right thigh and anterior hip abscess - which was drained and she left with wound vac. Returned on 08/26 for expanding hematoma to the right thigh requiring 2 units of pRBC, and transferred to [facility] for IR emobolization of thigh hematoma, but a decision was made not to perform any intervention and she was discharged to SNF on 09/06. 10/22-10/31 [facility] ICU. Patient did not require vasopressors. October 28 transferred to [facility]. October 31 decided to transfer patient to [facility] for vascular assessment of fistula to see [...] History of cardiopulmonary arrest August 2024 at [facility] Continue [facility] Extended Emergency Contact Information Primary Emergency Contact: Deshawn Crystal Mobile Relation: Brother Educational Psychology Professor needed? No Secondary Emergency Contact: Edward Ruggiero Mobile Relation: Significant Other Preferred language: Mongolian Educational Psychology Professor needed? No Candy Denis DO Division of Hospitalist Medicine Acute care [facility] [1] Past Medical History: Diagnosis Date [...] organism, unspecified whether acute organ dysfunction present ([facility]) Active Problems: Seizures (HCC) ESRD [...] with fever and tachycardia and lethargy to [facility] on 10/22/24. HC POA is partner = Edward and brother Deshawn Recently admitted from 09/13 to 10/12 at [facility] for new onset atrial fibrillation complicated [...] recent infected hematoma which was I&D at [facility] and treated with antibiotics from 08/14-08/24 in which she went under cardiac arrest which was thought to be due to the right thigh and anterior hip abscess - which was drained and she left with wound vac. Returned on 08/26 for expanding hematoma to the right thigh requiring 2 units of pRBC, and transferred to [facility] for IR emobolization of thigh hematoma, but a decision was made not to perform any intervention and she was discharged to SNF on 09/06. 10/22-10/31 [facility] ICU. Patient did not require vasopressors. October 28 transferred to [facility]. October 31 decided to transfer patient to [facility] for vascular assessment of fistula to see [...] History of cardiopulmonary arrest August 2024 at [facility] Extended Emergency Contact Information Primary Emergency Contact: BonillaDeshawn Mobile Relation: Brother Educational Psychology Professor needed? No Secondary Emergency Contact: Edward Ruggiero Mobile Relation: Significant Other Preferred language: Mongolian Educational Psychology Professor needed? No Candy Denis DO Division of Hospitalist Medicine Acute care [facility] [1] Past Medical History: Diagnosis Date [...] Date Chronic kidney disease (CKD) Hemodialysis patient ([facility]) ([facility]) Wednesday, , Wednesday History of blood transfusion 02/27/2022 Hypertension Seizure (HCC) Developed seizure-like activity on 02/24 during hospital admission [2] Past Surgical History: Procedure Laterality Date AV FISTULA PLACEMENT Left 08/07/2022 COLONOSCOPY N/A 01/25/2024 Performed by Chrissy Gilman MD at [facility] ENDOSCOPY IR CVC TUNNELED DIALYSIS CATHETER PLACEMENT 02/27/2022 IR CVC TUNNELED CATHETER PLACEMENT 02/27/2022 Candis Andrade MD [facility] SPECIAL PROCEDURES IR EMBOLIZATION 01/24/2024 IR EMBOLIZATION 01/24/2024 Jovan Glynn MD [facility] SPECIAL PROCEDURES [3] lactated Ringer's, 125 mL/hr [...] Admit Date: 10/22/2024 PCP: Roxie Spain Room#: W6-347/W6-206 A Interval History: On room air. Hypertensive. [...] with fever and tachycardia and lethargy to [facility] on 10/22/24. HC POA is partner = Edward and brother Deshawn Recently admitted from 09/13 to 10/12 at [facility] for new onset atrial fibrillation complicated [...] recent infected hematoma which was I&D at [facility] and treated with antibiotics from 08/14-08/24 in which she went under cardiac arrest which was thought to be due to the right thigh and anterior hip abscess - which was drained and she left with wound vac. Returned on 08/26 for expanding hematoma to the right thigh requiring 2 units of pRBC, and transferred to [facility] for IR emobolization of thigh hematoma, but a decision was made not to perform any intervention and she was discharged to SNF on 09/06. 10/22-10/31 [facility] ICU. Patient did not require vasopressors. October 28 transferred to [facility]. October 31 decided to transfer patient to [facility] for vascular assessment of fistula to see [...] cardiopulmonary arrest August 2024 at H Continue [facility] Extended Emergency Contact Information Primary Emergency Contact: Deshawn Crystal Mobile Relation: Brother Educational Psychology Professor needed? No Secondary Emergency Contact: BahmanEdward Mobile Relation: Significant Other Preferred language: Mongolian Educational Psychology Professor needed? No Candy Denis DO Division of Hospitalist Medicine [facility] [1] Past Medical History: Diagnosis Date [...] mg, 5 mg, Oral, Daily, Ana Boyce, MACHINE CLERICAL VERIFIER - MACROECONOMICS PROFESSOR, 5 mg at 11/01/24 0810 chlorhexidine (Hibiclens) [...] infusion, 250 mL/hr, IntraVENous, PRN, Ana Boyce, MACHINE CLERICAL VERIFIER - MACROECONOMICS PROFESSOR sodium chloride 0.9% (NS) flush 5-40 mL, [...] transferred here last night after being at [facility] for 9 days). Please continue to record % consumed of meals in I/O Flowsheet. RD to monitor weight (confirm/monitor for Nephrology comment on pt's current EDW), labs, fluid, overall nutritional status & follow up weekly. Malnutrition Assessment: Malnutrition Status: At risk for malnutrition (Comment) (continue with ONS and liberalized diet; noted MD or MACROECONOMICS PROFESSOR have been documenting Severe Malnutrition since 10/23) [...] Accumulation: No significant fluid accumulation (per chart) Patented Hogshead Assembler Strength: Not Performed Nutrition Assessment: Pt with PMH including ESRD on HD, Seizures, HTN, HLD, recent admission to OSH for sudden cardiac arrest 05/07 right thigh/hip abscess s/p I&D 08/16 presented initially to [facility] from [facility] on 10/22 due to AMS; in ED pt noted to be febrile 101.3 at [facility], tachycardic, tachypneic and with elevated WBC, received IV fluid bolus, antibiotics, admitted to [facility] for further work up; Critical care consulted the following day as pt remained febrile, tachycardic and tachypneic, WBC count also continuing to increase with worsening anemia; pt has had multiple admissions 08/14 to 08/24 at [facility] for cardiac arrest, 08/26 to 09/06 [...] catheter placed on discharge on 10/12; at [facility] PT/OT/LP, ID, Nephrology, and Wound Care consulted; pt was transferred out of ICU services to medical services on 10/24, noted to be receiving Meropenem and Vancomycin IV (stopped, transitioned to oral abx) for infected pressure ulcer on left buttocks, last HD 10/31; on 10/27 pt received 1 unit of blood (3rd unit pt had received there); at [facility] Palliative Care was following, speaking with pt's brother, code status changed to DNR-CCA; pt noted to need fistula placement for HD, has temp HD cath in place, transferred here yesterday for new fistula placement; here Vascular was consulted for same, recommended OR for assessment of AV fistula clot/infection 11/02. DATA CONVERSION DEVELOPER following (signed off today), diet progressed to [...] she would have last received while at [facility]. Nutrition Related Findings: pos I/O (4.3L); +BS, last BM 10/30; No edema indicated; medications include renvela; labs: SCr (2.98), BG (67) Wound Type: Pressure Injury, Unstageable (sacrum extending to L buttock) Current Nutrition Therapies: Adult diet Regular Current Oral Intake Average Meal Intake: 0%, 1-25%, 26-50%, 51-75%, 76-100% (per flowsheet) Average Supplements Intake: Unable to assess (pt just transferred to [facility] from [facility] last night) Anthropometric Measures: Height: 162.6 cm [...] bed scale) % Weight Change (Calculated): -1.2 [place] Body Weight (lbs) (Calculated): 120 lbs [place] Body Weight (Kg) (Calculated): 55 kg % [place] Body Weight (Calculated): 97.7 % BMI (kg/m2) [...] Alexus Denney RD Contact: Secure chat or *[phone] Images from the original note were not included. PHYSICAL THERAPY [facility] Re-Evaluation Name/MRN: Apoorva Gonzalez ([id number]) Evaluation Date: 11/01/2024 Date of : 1950 Admission Date: 10/22/2024 12:48 PM Age: 74 y.o. [facility] Discharge Recommendation: Shelter Facility Equipment Needed: No Assessment IMPRESSION: PT re-evaluation completed d/t pt transfer SB>[facility]. She is here for sepsis, fever, lethargy. Max A for mobility, STAVE BOLT EQUALIZER required assist for all from SNF. Will [...] of Care supervision is transferred to a [facility] Therapy Services Physical Therapist. Goals and/or treatment plan was established in collaboration with patient/family/other representatives. [1] Past Medical History: Diagnosis Date Chronic kidney disease (CKD) Hemodialysis patient (CMS/HCC) ([facility]) Wednesday, , Wednesday History of blood transfusion 02/27/2022 Hypertension Seizure (HCC) Developed seizure-like activity on 02/24 during hospital admission [2] Past Surgical History: Procedure Laterality Date AV FISTULA PLACEMENT Left 08/07/2022 COLONOSCOPY N/A 01/25/2024 Performed by Chrissy Gilman MD at [facility] ENDOSCOPY IR CVC TUNNELED DIALYSIS CATHETER PLACEMENT 02/27/2022 IR CVC TUNNELED CATHETER PLACEMENT 02/27/2022 Candis Andrade MD [facility] SPECIAL PROCEDURES IR EMBOLIZATION 01/24/2024 IR EMBOLIZATION 01/24/2024 Jovan Glynn MD [facility] SPECIAL PROCEDURES Images from the original note were not included. Speech-Language Pathology SPEECH LANGUAGE PATHOLOGY [facility] Dysphagia Treatment Note Patient Name: Apoorva Gonzalez Evaluation Date: 11/01/2024 Date of : 1950 Admission Date: 10/22/2024 12:48 PM Age: 74 y.o. Room[facility]Bed: [facility] A Subjective Patient alert and cooperative. [...] bites/sips Patient has achieved all acute care DATA CONVERSION DEVELOPER goals. Speech therapy to sign off at [...] Expected End: 11/07/24 Resolved: 11/01/24 Therapy Time DATA CONVERSION DEVELOPER Individual Minutes Time In: 1034 Time Out: 1044 Minutes: 10 Tameka Bernard DATA CONVERSION DEVELOPER Engineering Mgr Cosigned by Evelia Mares CCC-DATA CONVERSION DEVELOPER at 11/01/2024 11:04 AM EDT Hospitalist Progress Note 11/01/2024 Subjective: Admit Date: 10/22/2024 PCP: Roxie Spain Room#: W6-637/W6-447 A Interval History: On room air. Hypertensive. [...] with fever and tachycardia and lethargy to [facility] on 10/22/24. HC POA is partner = Edward and brother Deshawn Recently admitted from 09/13 to 10/12 at [facility] for new onset atrial fibrillation complicated [...] recent infected hematoma which was I&D at [facility] and treated with antibiotics from 08/14-08/24 in which she went under cardiac arrest which was thought to be due to the right thigh and anterior hip abscess - which was drained and she left with wound vac. Returned on 08/26 for expanding hematoma to the right thigh requiring 2 units of pRBC, and transferred to [facility] for IR emobolization of thigh hematoma, but a decision was made not to perform any intervention and she was discharged to SNF on 09/06. 10/22-10/31 [facility] ICU. Patient did not require vasopressors. October 28 transferred to [facility]. October 31 decided to transfer patient to [facility] for vascular assessment of fistula to see [...] Emergency Contact: Deshawn Crystal Mobile Relation: Brother Educational Psychology Professor needed? No Secondary Emergency Contact: Edward Ruggiero Mobile Relation: Significant Other Preferred language: Mongolian Educational Psychology Professor needed? No Candy Denis DO Division of Hospitalist Medicine [facility] [1] Past Medical History: Diagnosis Date [...] original note were not included. PHYSICAL THERAPY [facility] Name/MRN: Apoorva Gonzalez ([id number]) Date: 10/31/2024 Chart review completed. Unable to see pt currently secondary to receiving dialysis. Noted plan to transfer pt to [facility] for vascular consult. Will follow while here [...] mg, 5 mg, Oral, Daily, Ana Boyce, MACHINE CLERICAL VERIFIER - MACROECONOMICS PROFESSOR, 5 mg at 10/31/24 0820 chlorhexidine (Hibiclens) [...] injection 1 mg, 1 mg, IntraMUSCular, PRN, Kaylni Thomas, DO glucose oral gel 15 g, [...] IntraVENous, q4h PRN, Ana Boyce APRN - MACROECONOMICS PROFESSOR, 10 mg at 10/30/24 0451 labetalol (Normodyne,Trandate) [...] 50 mg, Oral, q8h PRN, Ana Boyce, MACHINE CLERICAL VERIFIER - MACROECONOMICS PROFESSOR Hospitalist Progress Note 10/31/2024 Subjective: Admit Date: 10/22/2024 PCP: Roxie Spain Room#: B2-258/B2-258 A BRIEF HOSPITAL COURSE: Apoorva Gonzalez is a 74 year old female who presented 10/22 from SNF due to altered mental status. In the ED was noted to be febrile 101.3 at SNF, tachycardic, tachypneic and with elevated WBC. Received IV fluid bolus, antibiotics. Admitted to [facility] for further work up. Critical care consulted the following day as patient remained febrile, tachycardic and tachypneic. WBC count also continuing to increase with worsening anemia. Patient has had multiple admissions 08/14 to 08/24 at [facility] for cardiac arrest, 08/26 to 09/06 [...] 10/28/24 Patient moved out of ICU to [address] [place], [place] [address], dialysis being set up this morning, hemoglobin remains stable overnight at 9.3 10/30/24 IV Zosyn stopped, oral ATB started in the afternoon by ID, reached out to vascular they do not come to [place] willing to see patient at [facility] Interval History: 10/31/24 Discussed plan with patient's POA/brother Deshawn- instead of getting authorization for [facility] approval, going to [facility] then turning around to return to outpatient vascular appointment to evaluate fistula for potential source of infection, he is agreeable to transfer to [facility] for vascular assessment and/or removal of current [...] with Dr Fernandez and admitting team at [facility], accepted transfer and will assess AV fistula [...] Keppra HTN HLD Debility Recent CDIFF-treated at [facility] Plan As a result of the above [...] to update we will proceed transfer to [facility] for vascular surgery to evaluate, brother agrees [...] - TBD - Location - transfer to [facility] then pursue SNF for rehab - Pending the following - pending acceptance Toxic drug monitoring/narrow therapeutic index drug monitoring : # Drug name : # Route administered : # Method of monitoring : Extended Emergency Contact Information Primary Emergency Contact: Gera Crystalence Mobile Relation: Brother Educational Psychology Professor needed? No Secondary Emergency Contact: RuggieroEdward Mobile Relation: Significant Other Preferred language: Mongolian Educational Psychology Professor needed? No Ana Boyce APRN - MACROECONOMICS PROFESSOR Division of Hospitalist Medicine [facility] [1] Past Medical History: Diagnosis Date [...] not included. Speech-Language Pathology SPEECH LANGUAGE PATHOLOGY [facility] Dysphagia Treatment Note Patient Name: Apoorva Gonzalez Evaluation Date: 10/31/2024 Date of : 1950 Admission Date: 10/22/2024 12:48 PM Age: 74 y.o. Room/Bed: [facility] A Subjective Patient alert and [...] Plan: Continue dysphagia POC. Possible transfer to [facility] if need surgery for infected Fistula. Recommend [...] Start: 10/24/24 Expected End: 11/07/24 Therapy Time DATA CONVERSION DEVELOPER Individual Minutes Time In: 922 Time Out: 938 Minutes: 16 NIRU Quiroz Images from the original note were not included. [facility] Wound Care Progress Note Apoorva Gonzalez AGE: 74 y.o. GENDER: female : 1950 Subjective: HISTORY of PRESENT ILLNESS HPI Apoorva Gonzalez is a 74 y.o. female who presents for a wound care follow up. HPI: Apoorva is a 74 y.o. female who presented to the emergency department on 10/22/24 with chief complaint of AMS. Pt is resident of [place] at [facility]. Report one day of increasing weakness and AMS. She receives dialysis 5x/week Wed-Wednesday. No missed sessions. Temp 101.3F at [facility]. Hospitalized from 08/14 - 08/24 at [facility] for cardiac arrest and sepsis and again from 08/26 to 09/06 at for sepsis believed to be due to an infected right thigh wound and hematoma. Hospitalized again at [facility] from 09/13 - 10/12 due to covid-19 [...] no cyanosis Sacrum extending to left buttock: 2.1y3bHHW cm. Wound bed with a mix of [...] to follow Recommend to follow up at [facility] Outpatient wound care center after hospital discharge. Any questions or concerns please secure chat [facility] wound/ostomy. Thank you for the [...] 01/25/2024 Performed by Chrissy Gilman MD at [facility] ENDOSCOPY IR CVC TUNNELED DIALYSIS CATHETER PLACEMENT 02/27/2022 IR CVC TUNNELED CATHETER PLACEMENT 02/27/2022 Candis Andrade MD [facility] SPECIAL PROCEDURES IR EMBOLIZATION 01/24/2024 IR EMBOLIZATION 01/24/2024 Jovan Glynn MD [facility] SPECIAL PROCEDURES [3] Family History Problem Relation [...] as needed for constipation. Spiritual Care Note [facility] Palliative Care Patient Name:Apoorva Gonzalez Chief Complaint: Chief Complaint Patient presents with Altered Mental Status [facility] Squad was called for weakness and altered [...] and when patient is able. Debriefed: with shoe lacer team. Gretchen Adames 10/30/24 Consult acknowledged. Concern for infected LUE AVG. The patient will need transferred to [facility] for any vascular surgical evaluation/procedure as we have no operative time available to us at [facility]. Ana Boyce, PARK-MACROECONOMICS PROFESSOR contacted. Raffy Fernandez MD Vascular Surgery Hospitalist Progress Note 10/30/2024 Subjective: Admit Date: 10/22/2024 PCP: Roxie Spain Room#: B2-258/B2-258 A BRIEF HOSPITAL COURSE: Apoorva Gonzalez is a 74 year old female who presented 10/22 from [facility] due to altered mental status. In the ED was noted to be febrile 101.3 at [facility], tachycardic, tachypneic and with elevated WBC. Received IV fluid bolus, antibiotics. Admitted to [facility] for further work up. Critical care consulted the following day as patient remained febrile, tachycardic and tachypneic. WBC count also continuing to increase with worsening anemia. Patient has had multiple admissions 08/14 to 08/24 at [facility] for cardiac arrest, 08/26 to 09/06 at for sepsis believed to be due to an infected right thigh wound and hematoma; [facility] from 09/13 - 10/12/24 due to covid-19, [...] 10/28/24 Patient moved out of ICU to [address] [place], [place] [address], dialysis being set up this morning, hemoglobin [...] Keppra HTN HLD Debility Recent CDIFF-treated at [facility] Plan As a result of the above [...] following, recommending SNF, will go back to [facility], palliative consult will be placed when she [...] Emergency Contact: Deshawn Crystal Mobile Relation: Brother Educational Psychology Professor needed? No Secondary Emergency Contact: Edward Ruggiero Mobile Relation: Significant Other Preferred language: Mongolian Educational Psychology Professor needed? No PARK Ureña CNP Division of Hospitalist Medicine [facility] [1] Past Medical History: Diagnosis Date [...] sodium chloride 0.9%, sodium chloride 0.9% [4] [facility] - Infectious Diseases Attending Progress [...] excised. Encephalopathy- worse today( compared to previous [facility] admission) Leukocytosis. ESRD, on HD. Recent h/o [...] not included. Speech-Language Pathology SPEECH LANGUAGE PATHOLOGY [facility] Dysphagia Treatment Note Patient Name: Apoorva Gonzalez Evaluation Date: 10/30/2024 Date of : 1950 Admission Date: 10/22/2024 12:48 PM Age: 74 y.o. Room/Bed: [facility] A Subjective Patient alert and cooperative. Seen [...] upgrade. Plan & Recommendations Plan: Continue acute DATA CONVERSION DEVELOPER therapy per initial plan of care and [...] Start: 10/24/24 Expected End: 11/07/24 Therapy Time DATA CONVERSION DEVELOPER Individual Minutes Time In: 939 Time Out: 954 Minutes: 15 Christine Barnes CCC-DATA CONVERSION DEVELOPER Images from the original note were not [...] ( ) Alternate is s/o Edward Ruggiero [phone]) -HCPOA documented to have been filled out at facility recently-->copy was emailed to me today from [facility]. Faxed to medical records to be scanned into chart. -Goals of care include-->1)CONTINUE ATBX 2)RETURN TO FACILITY 3)PALLIATIVE REFERRAL PATIENT NOT REDY FOR HOSPICE AT THIS TIME. Sepsis -Recent admission at [facility] for sepsis, Cdiff. -Had central line replaced and noted that IV ATBX course will be finished out PO at facility. -Monitor for s/s repeat infection, continued decline, patient is hospice appropriate, however -Monitor. Acute encephalopathy -Improved since last seen. -Monitor. Dysphagia -Patient now cleared for regular diet after being seen by DATA CONVERSION DEVELOPER -Monitor. Debility Wounds -ongoing, 2/2 chronically ill [...] dose medications Hx CP arrest --->while at [facility]. Palliative Care Encounter -Code Status: DNR-CCA, DNI [...] Family/Caregiver Advanced Directives: Health Care Power of Grab Setter, DNR Functional Assessment: PPS 50% mainly sit/lie; can't do any work/extensive disease; considerable assistance; normal or reduced intake; full LOC or confusion Prognosis: depends upon goals of care Spiritual Assessment: No spiritual distress identified Bereavement and Grief: To Be Determined ROS: See palliative care ROS/ESAS below; Detail ROS unable to be obtained due to patient's mental status Mansfield Symptom Assessment Score Mansfield Score Pain Score (if non-verbal, add .FLACC [...] Gonzalez has been seen in consultation by [facility] Palliative Care during their admission to [facility]. They currently have no uncontrolled symptoms and have established goals of care and we have signed off of their case. The patient has established follow-up with palliative care team and PCP. PARK Prajapati CNP Images from the original note were not included. PHYSICAL THERAPY [facility] Treatment Note Name/MRN: Apoorva Gonzalez ([id number]) Date of : 1950 Age: 74 y.o. Room/Bed: [facility] A Visit #: 2 out of 5 Discharge Recommendation: Shelter Facility Equipment Needed: No Assessment Pt continues [...] for seated balance training with reaching outside [place], dynamic weight shifting and maintenance of erect [...] Received IV fluid bolus, antibiotics. Admitted to [facility] for further work up. Critical care consulted the following day as patient remained febrile, tachycardic and tachypneic. WBC count also continuing to increase with worsening anemia. Patient has had multiple admissions 08/14 to 08/24 at [facility] for cardiac arrest, 08/26 to 09/06 [...] [facility] dialysis being set up this morning, hemoglobin [...] Keppra HTN HLD Debility Recent CDIFF-treated at [facility] Plan As a result of the above [...] Emergency Contact: Deshawn Crystal Mobile Relation: Brother Educational Psychology Professor needed? No Secondary Emergency Contact: Edward Ruggiero Mobile Relation: Significant Other Preferred language: Mongolian Educational Psychology Professor needed? No Ana Boyce APRN - MACROECONOMICS PROFESSOR Division of Hospitalist Medicine [facility] [1] Past Medical History: Diagnosis Date Chronic kidney disease (CKD) Hemodialysis patient ([facility]/HCC) (HCC) Wednesday, , Wednesday History of blood [...] old female who presented 10/22 from [facility] due to altered mental status. In the ED was noted to be febrile 101.3 at [facility], tachycardic, tachypneic and with elevated WBC. Received IV fluid bolus, antibiotics. Admitted to [facility] for further work up. Critical care consulted the following day as patient remained febrile, tachycardic and tachypneic. WBC count also continuing to increase with worsening anemia. Patient has had multiple admissions 08/14 to 08/24 at [facility] for cardiac arrest, 08/26 to 09/06 [...] 10/28/24 Patient moved out of ICU to [address] [place], [place] [address], dialysis being set up this morning, hemoglobin [...] Keppra HTN HLD Debility Recent CDIFF-treated at [facility] Plan As a result of the above [...] Emergency Contact: Deshawn Crystal Mobile Relation: Brother Educational Psychology Professor needed? No Secondary Emergency Contact: Edward Ruggiero Mobile Relation: Significant Other Preferred language: Mongolian Educational Psychology Professor needed? No PARK Ureña CNP Division of Hospitalist Medicine [facility] [1] Past Medical History: Diagnosis Date [...] were not included. [facility] - Infectious Diseases Attending Progress [...] fistula Encephalopathy- worse today( compared to previous [facility] admission) Leukocytosis. ESRD, on HD. Recent h/o [...] old female who presented 10/22 from [facility] due to altered mental status. In the ED was noted to be febrile 101.3 at [facility], tachycardic, tachypneic and with elevated WBC. Received IV fluid bolus, antibiotics. Admitted to [facility] for further work up. Critical care consulted the following day as patient remained febrile, tachycardic and tachypneic. WBC count also continuing to increase with worsening anemia. Patient has had multiple admissions 08/14 to 08/24 at [facility] for cardiac arrest, 08/26 to 09/06 at for sepsis believed to be due to an infected right thigh wound and hematoma; [facility] from 09/13 - 10/12/24 due to covid-19, [...] Th, Sat HD. Patient currently resides at [facility] and will return on discharge Interval [...] Keppra HTN HLD Debility Recent CDIFF-treated at [facility] Plan As a result of the above [...] Emergency Contact: Deshawn Crystal Mobile Relation: Brother Educational Psychology Professor needed? No Secondary Emergency Contact: Edward Ruggiero Mobile Relation: Significant Other Preferred language: Mongolian Educational Psychology Professor needed? No PARK Ureña CNP Division of Hospitalist Medicine [facility] [1] Past Medical History: Diagnosis Date Chronic kidney disease (CKD) Hemodialysis patient (CMS/HCC) ([facility]) Wednesday, , Wednesday History of blood transfusion 02/27/2022 Hypertension Seizure ([facility]) Developed seizure-like activity on 02/24 [...] not included. Speech-Language Pathology SPEECH LANGUAGE PATHOLOGY [facility] Dysphagia Treatment Note Patient Name: Apoorva Gonzalez Evaluation Date: 10/27/2024 Date of : 1950 Admission Date: 10/22/2024 12:48 PM Age: 74 y.o. Room/Bed: 222-02/22202 A Subjective Patient alert, confused and agitated. Seen upright in bed. Answers some basic questions with clear vocal quality. Follows some basic commands. Visitors at bedside - PULMONOLOGY TECHNICIAN. Spoke with RNAna, who cleared pt for [...] Diet tolerance & trials Pt agitated with DATA CONVERSION DEVELOPER this am, stating I don't need you, don't touch my food. Pt was observed to be self-feeding at DATA CONVERSION DEVELOPER's arrival. DATA CONVERSION DEVELOPER provided explanation for purpose of therapy & goals of care - to upgrade pt's diet as appropriate. Pt stating You can watch me eat but that's it. Pt was observed to tolerated 3 bites of scrambled eggs & ice cream with functional mastication, achieving full bolus clearance & no overt s/s of aspiration/penetration. DATA CONVERSION DEVELOPER offered pt regular PO trials (dipti vasquez) with pt stating Don't touch anything, I don't need this, leave me be. DATA CONVERSION DEVELOPER adhered to pt's wishes at this time to decrease agitation, RN notified. Continue with current diet at this time - allow pt to self-feed if mentation continues to improve. Plan & Recommendations Plan: Continue acute DATA CONVERSION DEVELOPER therapy per initial plan of care and [...] Start: 10/24/24 Expected End: 11/07/24 Therapy Time DATA CONVERSION DEVELOPER Individual Minutes Time In: 904 Time Out: 914 Minutes: 10 Christine Barnes CCC-DATA CONVERSION DEVELOPER Images from the original note were not [...] ( ) Alternate is s/o Edward Ruggiero [phone]) - patient seen this am, she was [...] - discussed with bedside RN, primary team MACHINE CLERICAL VERIFIER-TAMIR Boyce - will continue to have ongoing goals of care conversations with patient, family Severe sepsis - likely secondary to infected left buttock pressure ulcer due to enterobacter cloacae complex , possible infected left arm fistula with E cloacae - ID on case, patient on meropenem Wound - sacral extending to left buttock - wound care team on case Dysphagia - DATA CONVERSION DEVELOPER on case, patient on soft and bite sized diet Seizure Disorder - patient on keppra ESRD - per nephrology notes from 10/26 patient stable on dialysis - next HD planned for Wednesday Hx of CP Arrest - 08/2024 while at [facility] Palliative Care Encounter -Code Status: Full Code [...] is a 74 y.o. female admitted to [facility] on 10/22 from facility with mentation alteration, [...] Family/Caregiver Advanced Directives: Health Care Power of Grab Setter, DNR Functional Assessment: PPS 50% mainly sit/lie; can't do any work/extensive disease; considerable assistance; normal or reduced intake; full LOC or confusion Prognosis: depends upon goals of care Spiritual Assessment: No spiritual distress identified Bereavement and Grief: To Be Determined PDMP/OARRS Reviewed: Yes-reviewed Social history: Marital status: Children: one child, . [facility] status: [facility] Work history: n/a [place] status: No Uatsdin erma: None ROS: See palliative care ROS/ESAS below; Detail ROS unable to be obtained due to patient's mental status [place] Symptom Assessment Score [place] Score Pain Score (if non-verbal, add .FLACC [...] She had a recent long admission at [facility] for about a month, COVID-19, spesis. Cdiff [...] should her disease run its natural course. Oapl Boyd MD [facility] - Infectious Diseases Attending Progress Note Subjective: [...] excised. Encephalopathy- worse today( compared to previous [facility] admission) Leukocytosis. ESRD, on HD. Recent h/o [...] Dysphagia - Soft and Bite Sized per DATA CONVERSION DEVELOPER recommendation. No additional renal restrictions needed for [...] unable to state how she was eating STAVE BOLT EQUALIZER) Weight Loss: No significant weight loss Body Fat Loss: Unable to assess (Limited d/t pt not cooperative) Muscle Mass Loss: Unable to assess (Limited cooperation from the patient; decreased level of alertness this afternoon) Fluid Accumulation: No significant fluid accumulation Patented Hogshead Assembler Strength: Measurable reduction in prosthetics assistant strength (per curing machine operator) Nutrition Assessment: Pt's diet advanced to Soft and Bite Sized 10/25 per DATA CONVERSION DEVELOPER recommendation s/p evaluation 10/25 and 10/26. Pt [...] On: Kcal/kg Weight Used for Energy Requirements: [place] Weight for Energy Calculation (kg): 55 kg Total Energy Requirements (kcals/day): 0396-3816 (27-32 kcal/kg IBW) Weight Used for Protein Requirements: [place] Weight in Kg Used for Protein Requirements: [...] bed scale) % Weight Change (Calculated): -1.2 [place] Body Weight (lbs) (Calculated): 120 lbs [place] Body Weight (Kg) (Calculated): 55 kg % [place] Body Weight (Calculated): 97.7 % BMI (kg/m2) [...] soon to determine Kelly Castro RD Contact: *[phone] or via Secure Chat Images from the [...] Received IV fluid bolus, antibiotics. Admitted to [facility] for further work up. Critical care consulted the following day as patient remained febrile, tachycardic and tachypneic. WBC count also continuing to increase with worsening anemia. Patient has had multiple admissions 08/14 to 08/24 at [facility] for cardiac arrest, 08/26 to 09/06 [...] Th, Sat HD. Patient currently resides at [facility] and will return on discharge Interval [...] Keppra HTN HLD Debility Recent CDIFF-treated at [facility] Plan As a result of the above [...] Emergency Contact: Deshawn Crystal Mobile Relation: Brother Educational Psychology Professor needed? No Secondary Emergency Contact: Edward Ruggiero Mobile Relation: Significant Other Preferred language: Mongolian Educational Psychology Professor needed? No PARK Ureña CNP Division of Hospitalist Medicine [facility] [1] Past Medical History: Diagnosis Date [...] Lab Units 10/22/24 1451 COLOR U Light [place]* CLARITY U Clear PH U pH 8.5* [...] []PD [] CrCl ml/min (if ROLANDO, no AIRCRAFT RESTORER) Infectious Diagnosis: sepsis (target level = mg/L) [...] 9:34 AM Won Gutiérrez PharmD (available on Inside) Images from the original note were not included. Speech-Language Pathology SPEECH LANGUAGE PATHOLOGY [facility] Dysphagia Treatment Note Patient Name: Apoorva [...] Start: 10/24/24 Expected End: 11/07/24 Therapy Time DATA CONVERSION DEVELOPER Individual Minutes Time In: 08 Time Out: 911 Minutes: 22 NIRU Quiroz Images from the original note were not included. [facility] - Infectious Diseases Attending Progress Note Subjective: [...] admissions; hospitalized from 08/14 - 08/24 at [facility] for cardiac arrest and sepsis and again from 08/26 to 09/06 at for sepsis believed to be due to an infected right thigh wound and hematoma; again at [facility] from 09/13 - 10/12/24 due to covid-19, [...] 1005 Aerobic and Anaerobic Culture with Stain [[id number]] Drainage from Arm, Left In process Component Value No component results 10/24/2024 0958 10/24/2024 1439 Culture, Aerobic Bacteria with Gram Stain [[id number]] Drainage from Arm, Left Preliminary result Component Value Culture Culture in progress P Gram Stain Result Many Polymorphonuclear leukocytes per low power field P No organisms seen P 10/24/2024 0958 10/24/2024 1005 Anaerobic culture [[id number]] Drainage from Arm, Left In process Component Value No component results 10/22/2024 2305 10/24/2024 0401 Blood culture Site #1 - Suspected Infection [[id number]] Blood, Venous Preliminary result Component Value Blood Culture No growth at 24 hours P 10/22/2024 1705 10/23/2024 2101 Blood culture Site #2 - Suspected Infection [[id number]] Blood, Venous Preliminary result Component Value Blood Culture No growth at 24 hours P 10/22/2024 1602 10/22/2024 2123 Respiratory Pathogens Panel by PCR [[id number]] Swab from Nasopharynx Final result Component Value [...] 1458 Aerobic and Anaerobic Culture with Stain [[id number]] (Abnormal) Other from Buttock, Left In process Component Value No component results 10/22/2024 1434 10/24/2024 1028 Culture, Aerobic Bacteria with Gram Stain [[id number]] (Abnormal) Other from Buttock, Left Preliminary result Component Value Culture Few skin camilo present P Many Enterobacter cloacae complex Abnormal P Gram Stain Result Rare Polymorphonuclear leukocytes per low power field Abnormal P Many Gram negative bacilli Abnormal P 10/22/2024 1434 10/22/2024 1458 Anaerobic culture [[id number]] Other from Buttock, Left In process Component Value No component results 10/22/2024 1411 10/23/2024 2101 Blood culture Site #1 - Suspected Infection [[id number]] Blood, Venous Preliminary result Component Value Blood Culture No growth at 24 hours P 10/09/2024 1541 10/14/2024 0950 Aerobic and Anaerobic Culture with Stain [[id number]] Drainage from Fistula Final result Component Value No component results 10/09/2024 1541 10/12/2024 0920 Culture, Aerobic Bacteria with Gram Stain [[id number]] Drainage from Fistula Final result Component Value Culture No growth at 72 hours Gram Stain Result Moderate Polymorphonuclear leukocytes per low power field No organisms seen 10/09/2024 1541 10/14/2024 0950 Anaerobic culture [[id number]] Drainage from Fistula Final result Component Value Culture No growth at 5 days 10/05/2024 1601 10/05/2024 1713 Respiratory culture and Stain [[id number]] (Abnormal) Sputum from Bronchus Final result Component [...] 10/05/2024 1747 Respiratory Pathogens Panel by PCR [[id number]] Swab from Nasopharynx Final result Component Value [...] sites ok Radiography/Echo/Other: IR nontunneled catheter placement [[id number]] Collected: 10/23/24 1115 Order Status: Completed Updated: [...] 11:17 AM EDT XR chest 1 view [[id number]] Collected: 10/22/24 154 Order Status: Completed Updated: [...] EDT IR CVC Tunneled Dialysis Cath Exchange [[id number]] Collected: 10/12/24 1344 Order Status: Completed Updated: [...] 1:46 PM EDT IR nontunneled catheter placement [[id number]] Collected: 10/09/24 1549 Order Status: Completed Updated: [...] PM EDT CT head wo IV contrast [[id number]] Collected: 10/06/24313 Order Status: Completed Updated: 10/06/24326 Narrative: Patient Name: APOORVA GONZALEZ : 1950 Exam Date/Time: 10/05/2024 23:23 Procedure: CT HEAD WO IV CONTRAST Ordering Provider: CARABALLO GEORGE Reason For Exam: AMS EXAMINATION: CT HEAD WO IV CONTRAST HISTORY: AMS - - - - - [id number] - - - - change in mental [...] orbits and extracranial soft tissues are unremarkable. Tavern Operator (topogram) images: No additional findings. Impression: No CT evidence of an acute intracranial abnormality. Report Dictated on Electronically Signed By: Kev Goldstein MD Electronically Signed Date/Time: 10/06/2024 3:[address] chest abdomen pelvis with contrast [[id number]] Collected: 10/06/24850 Order Status: Completed Updated: 10/06/24903 Narrative: [facility] 1950 [id number] Exam Date/Time: 10/05/2024 23:23 Procedure: CT CHEST [...] 9:03 AM EDT XR chest 1 view [[id number]] Collected: 10/05/242039 Order Status: Completed Updated: 10/05/242042 Narrative: Patient Name: [facility] 1950 [id number] Exam Date/Time: 10/05/2024 20:36 Procedure: XR CHEST [...] 8:41 PM EDT XR chest 1 view [[id number]] Collected: 10/05/24 144 Order Status: Completed Updated: 10/05/24 1451 Narrative: Patient Name: [facility] 1950 [id number] Exam Date/Time: 10/05/2024 14:30 Procedure: XR CHEST [...] original note were not included. PHYSICAL THERAPY [facility] Treatment Note Name/MRN: Apoorva Gonzalez ([id number]) Date of : 1950 Age: 74 y.o. Room/Bed: 222-/222- A Visit #: 1 out of 5 visits Discharge Recommendation: Shelter Facility Equipment Needed: No Prior Level of [...] - dietary following Dysphagia - seen by DATA CONVERSION DEVELOPER and now on bite sized soft diet [...] Emergency Contact: Deshawn Crystal Mobile Relation: Brother Educational Psychology Professor needed? No Secondary Emergency Contact: Edward Ruggiero Mobile Relation: Significant Other Preferred language: Mongolian Educational Psychology Professor needed? No PARK Kelly CNP Division of Hospitalist Medicine [facility] [1] Past Medical History: Diagnosis Date Chronic kidney disease (CKD) Hemodialysis patient (CMS/HCC) (HCC) Wednesday, , Wednesday History of blood transfusion 02/27/2022 Hypertension Seizure ([facility]) Developed seizure-like activity on 02/24 [...] from the original note were not included. [facility] Wound Care Progress Note Apoorva Gonzalez AGE: 74 y.o. GENDER: female : 1950 Subjective: HISTORY of PRESENT ILLNESS HPI Apoorva Gonzalez is a 74 y.o. female who presents for a wound care follow up. HPI: Apoorva is a 74 y.o. female who presented to the emergency department on 10/22/24 with chief complaint of AMS. Pt is resident of [place] at [facility]. Report one day of increasing weakness and AMS. She receives dialysis 5x/week Wed-Wednesday. No missed sessions. Temp 101.3F at [facility]. Hospitalized from 08/14 - 08/24 at [facility] for cardiac arrest and sepsis and again from 08/26 to 09/06 at for sepsis believed to be due to an infected right thigh wound and hematoma. Hospitalized again at [facility] from 09/13 - 10/12 due to covid-19 [...] no cyanosis Sacrum extending to left buttock: 2.5m7pIGH cm. Wound bed with a mix of [...] to follow Recommend to follow up at [facility] Outpatient wound care center after hospital discharge. Any questions or concerns please secure chat [facility] wound/ostomy. Thank you for the [...] 01/25/2024 Performed by Chrissy Gilman MD at [facility] ENDOSCOPY IR CVC TUNNELED DIALYSIS CATHETER PLACEMENT 02/27/2022 IR CVC TUNNELED CATHETER PLACEMENT 02/27/2022 Candis Andrade MD [facility] SPECIAL PROCEDURES IR EMBOLIZATION 01/24/2024 IR EMBOLIZATION 01/24/2024 Jovan Glynn MD [facility] SPECIAL PROCEDURES [3] Family History Problem Relation [...] not included. Speech-Language Pathology SPEECH LANGUAGE PATHOLOGY [facility] Dysphagia Treatment Note Patient Name: Apoorva [...] Start: 10/24/24 Expected End: 11/07/24 Therapy Time DATA CONVERSION DEVELOPER Individual Minutes Time In: 835 Time Out: [...] []PD [] CrCl ml/min (if ROLANDO, no AIRCRAFT RESTORER) Infectious Diagnosis: sepsis (target level = mg/L) [...] 11:21 PM Joann Floyd PharmD (available on [employer]) [facility] PROGRESS NOTE Subjective Interval [...] Lab Units 10/22/24 1451 COLOR U Light [place]* CLARITY U Clear PH U pH 8.5* [...] from the original note were not included. [facility] - Infectious Diseases Attending Progress Note [...] admissions; hospitalized from 08/14 - 08/24 at [facility] for cardiac arrest and sepsis and again from 08/26 to 09/06 at for sepsis believed to be due to an infected right thigh wound and hematoma; again at [facility] from 09/13 - 10/12/24 due to covid-19, [...] 1005 Aerobic and Anaerobic Culture with Stain [[id number]] Drainage from Arm, Left In process Component Value No component results 10/24/2024 0958 10/24/2024 1439 Culture, Aerobic Bacteria with Gram Stain [[id number]] Drainage from Arm, Left Preliminary result Component Value Culture Culture in progress P Gram Stain Result Many Polymorphonuclear leukocytes per low power field P No organisms seen P 10/24/2024 0958 10/24/2024 1005 Anaerobic culture [[id number]] Drainage from Arm, Left In process Component Value No component results 10/22/2024 2305 10/24/2024 0401 Blood culture Site #1 - Suspected Infection [[id number]] Blood, Venous Preliminary result Component Value Blood Culture No growth at 24 hours P 10/22/2024 1705 10/23/2024 2101 Blood culture Site #2 - Suspected Infection [[id number]] Blood, Venous Preliminary result Component Value Blood Culture No growth at 24 hours P 10/22/2024 1602 10/22/2024 2123 Respiratory Pathogens Panel by PCR [[id number]] Swab from Nasopharynx Final result Component Value [...] 1458 Aerobic and Anaerobic Culture with Stain [[id number]] (Abnormal) Other from Buttock, Left In process Component Value No component results 10/22/2024 1434 10/24/2024 1028 Culture, Aerobic Bacteria with Gram Stain [[id number]] (Abnormal) Other from Buttock, Left Preliminary result Component Value Culture Few skin camilo present P Many Enterobacter cloacae complex Abnormal P Gram Stain Result Rare Polymorphonuclear leukocytes per low power field Abnormal P Many Gram negative bacilli Abnormal P 10/22/2024 1434 10/22/2024 1458 Anaerobic culture [[id number]] Other from Buttock, Left In process Component Value No component results 10/22/2024 1411 10/23/2024 2101 Blood culture Site #1 - Suspected Infection [[id number]] Blood, Venous Preliminary result Component Value Blood Culture No growth at 24 hours P 10/09/2024 1541 10/14/2024 0950 Aerobic and Anaerobic Culture with Stain [[id number]] Drainage from Fistula Final result Component Value No component results 10/09/2024 1541 10/12/2024 0920 Culture, Aerobic Bacteria with Gram Stain [[id number]] Drainage from Fistula Final result Component Value Culture No growth at 72 hours Gram Stain Result Moderate Polymorphonuclear leukocytes per low power field No organisms seen 10/09/2024 1541 10/14/2024 0950 Anaerobic culture [[id number]] Drainage from Fistula Final result Component Value Culture No growth at 5 days 10/05/2024 1601 10/05/2024 1713 Respiratory culture and Stain [[id number]] (Abnormal) Sputum from Bronchus Final result Component [...] 10/05/2024 1747 Respiratory Pathogens Panel by PCR [[id number]] Swab from Nasopharynx Final result Component Value [...] HD cath Radiography/Echo/Other: IR nontunneled catheter placement [[id number]] Collected: 10/23/241114 Order Status: Completed Updated: 10/23/241117 Narrative: Patient Name: [facility]ORVA [facility]ALEZ [facility] 1950 [id number] Exam Date/Time: 10/23/2024 10:26 Procedure: IR NONTUNNELED [...] 11:17 AM EDT XR chest 1 view [[id number]] Collected: 10/22/241544 Order Status: Completed Updated: 10/22/241546 Narrative: Patient Name: [facility]ORVA [facility]ON[facility]ALEZ : 1950 [id number] Exam Date/Time: 10/22/2024 15:17 Procedure: XR CHEST [...] EDT IR CVC Tunneled Dialysis Cath Exchange [[id number]] Collected: 10/12/241343 Order Status: Completed Updated: 10/12/241346 Narrative: Patient Name: APOORVA GONZALEZ : 1950 [facility]#: [id number] Exam Date/Time: 10/12/2024 11:51 Procedure: IR CVC [...] 1:46 PM EDT IR nontunneled catheter placement [[id number]] Collected: 10/09/24 1549 Order Status: Completed Updated: [...] PM EDT CT head wo IV contrast [[id number]] Collected: 10/06/24313 Order Status: Completed Updated: 10/06/24326 Narrative: Patient Name: APOORVA GONZALEZ : 1950 Exam Date/Time: 10/05/2024 23:23 Procedure: CT HEAD WO IV CONTRAST Ordering Provider: CARABALLO GEORGE Reason For Exam: AMS EXAMINATION: CT HEAD WO IV CONTRAST HISTORY: AMS - - - - - [id number] - - - - change in mental [...] orbits and extracranial soft tissues are unremarkable. Tavern Operator (topogram) images: No additional findings. Impression: No CT evidence of an acute intracranial abnormality. Report Dictated on Electronically Signed By: Kev Goldstein MD Electronically Signed Date/Time: 10/06/2024 3:[address] chest abdomen pelvis with contrast [[id number]] Collected: 10/06/24 0851 Order Status: Completed Updated: [...] 9:03 AM EDT XR chest 1 view [[id number]] Collected: 10/05/242039 Order Status: Completed Updated: 10/05/242042 [...] 8:41 PM EDT XR chest 1 view [[id number]] Collected: 10/05/24 1449 Order Status: Completed Updated: [...] original note were not included. PHYSICAL THERAPY [facility] Initial Evaluation Name/MRN: Apoorva Gonzalez ([id number]) Evaluation Date: 10/24/2024 Date of : 1950 Admission Date: 10/22/2024 12:48 PM Age: 74 y.o. Room/Bed: 222-/222-02 A Discharge Recommendation: Shelter Facility Equipment Needed: No Assessment IMPRESSION: Pt admitted 10/23 with sepsis, altered mental status. She has had multiple recent hospital admissions, was at [facility] 09/13-10/12 for Afib and COVID-19, PNA. Prior to that was at [facility] with R thigh hematoma and I&D, went into cardiac arrest. Prior to these hospitalizations was IND but since has been at SNF with plan to transition to halfway care. I spoke with PT at SNF [...] Shortness of breath 03/02/2024 Pulmonary edema, acute ([facility]) 02/19/2024 Gastrointestinal hemorrhage, unspecified gastrointestinal [...] In 0800 Time Out 0808 Minutes 8 Deagnelo Connell PT Patient's Physical Therapy Plan of Care supervision is transferred to a [facility] Therapy Services Physical Therapist. Goals and/or treatment plan was established in collaboration with patient/family/other representatives. [1] Past Medical History: Diagnosis Date Chronic kidney disease (CKD) Hemodialysis patient (CMS/HCC) ([facility]) Wednesday, , Wednesday History of blood transfusion 02/27/2022 Hypertension Seizure ([facility]) Developed seizure-like activity on 02/24 during hospital admission [2] Past Surgical History: Procedure Laterality Date AV FISTULA PLACEMENT Left 08/07/2022 COLONOSCOPY N/A 01/25/2024 Performed by Chrissy Gilman MD at [facility] ENDOSCOPY IR CVC TUNNELED DIALYSIS CATHETER PLACEMENT 02/27/2022 IR CVC TUNNELED CATHETER PLACEMENT 02/27/2022 Candis Andrade MD [facility] SPECIAL PROCEDURES IR EMBOLIZATION 01/24/2024 IR EMBOLIZATION 01/24/2024 Jovan Glynn MD [facility] SPECIAL PROCEDURES Speech-Language Pathology SPEECH LANGUAGE PATHOLOGY [facility] Bedside Swallow Evaluation Patient Name: Apoorva [...] required. Pt would benefit from skilled acute DATA CONVERSION DEVELOPER services to repeat bedside swallow evaluation. Frequency: [...] Retrospective chart review revealed a history of DATA CONVERSION DEVELOPER services as follows: speech therapy services from [...] complaint of AMS. Pt is resident of [place] at [facility]. Collateral hx provided by [facility] nurse and EMS. Report one day of increasing weakness and AMS. She receives dialysis 5x/week Wed-Wednesday. No missed sessions. Temp 101.3F at [facility]. Hospitalized from 08/14 - 08/24 at [facility] for cardiac arrest and sepsis and again from 08/26 to 09/06 at for sepsis believed to be due to an infected right thigh wound and hematoma Hospitalized again at [facility] from 09/13 - 10/12 due to covid-19 [...] Start: 10/24/24 Expected End: 11/07/24 Therapy Time DATA CONVERSION DEVELOPER Individual Minutes Time In: 815 Time Out: 834 Minutes: 19 Levi Louis DATA CONVERSION DEVELOPER Graduate Clinician [1] Past Medical History: Diagnosis Date Chronic kidney disease (CKD) Hemodialysis patient (CMS/HCC) (HCC) Wednesday, , Wednesday History of blood transfusion 02/27/2022 Hypertension Seizure ([facility]) Developed seizure-like activity on 02/24 during hospital admission [2] Past Surgical History: Procedure Laterality Date AV FISTULA PLACEMENT Left 08/07/2022 COLONOSCOPY N/A 01/25/2024 Performed by Chrissy Gilman MD at [facility] ENDOSCOPY IR CVC TUNNELED DIALYSIS CATHETER PLACEMENT 02/27/2022 IR CVC TUNNELED CATHETER PLACEMENT 02/27/2022 Candis Andrade MD [facility] SPECIAL PROCEDURES IR EMBOLIZATION 01/24/2024 IR EMBOLIZATION 01/24/2024 Jovan Glynn MD [facility] SPECIAL PROCEDURES Cosigned by NIRU Quiroz at 10/24/2024 10:19 AM EDT ICU Progress Note Name: Apoorva Gonzalez : 1950(74 y.o.) Date: 10/24/24 Team: MICU Attending: William Subjective: Hospital Summary: Ms Gonzalez is a 74 year old female who presented 10/22 from [facility] due to altered mental status. In the ED was noted to be febrile, tachycardic, tachypneic and with elevated WBC. Received IV fluid bolus, antibiotics. Admitted to [facility] for further work up. Critical care [...] Normal [] Scar/Lesion/Mass Inspection of teeth/lips/gums Dentition: [][place] Teeth []Dentures Lips/Gums: [x]Intact []Lesion Present Mucosa: [x][place] []Moist []Dry Neck: External Appearance Overall Appearance: [...] 15.5* ABGs: No results for input(s): PHART, AUC4NZT, PO2ART, KJL3KLV, SO2ART, R0ZXJGKN in the last 72 hours. Lactic Acid: [...] given brown drainage. Would consider transfer to [facility] for evaluation by vascular surgery -AIRCRAFT RESTORER per nephrology -Transfuse to maintain hemoglobin >7 -Hypoglycemia protocol GI Prophylaxis: none indicated DVT Prophylaxis: Heparin subcutaneous Disposition: Transfer to [facility] Critical Care Time: 38 minutes Total [...] 12:17 PM Leticia Carty RPh (available on Inside) Images from the original note were not included. PHYSICAL THERAPY [facility] Name/MRN: Apoorva Gonzalez ([id number]) Date: 10/23/2024 Therapy eval and treat orders [...] stay. Julian Lerner PT Spiritual Care Note [facility] Palliative Care Patient Name:Apoorva Gonzalez Chief Complaint: Chief Complaint Patient presents with Altered Mental Status [facility] from [facility]. Squad was called for weakness and altered [...] and when patient is able. Debriefed: with shoe lacer team. Gretchen Adames 10/23/24 Nutrition Assessment Type and Reason for Visit: Initial (ICU admit) Nutrition Recommendations/Plan: NPO and off unit for tunneled line placement. Recommend ADAT as deemed safe and appropriate by DATA CONVERSION DEVELOPER Should alternative nutrition route align with goals [...] and seizure. With recent lengthy admit to [facility] 09/13-10/12/24 with confusion, generalized pain and SOB. Founds to be COVID+ on arrival. +Blood cultures for Enterobacter cloacae, antibiotics changes to vanc/cefepime and ID recommended 3 days of remdesivir. Course complicated by lethargy and AMS following iHD on 09/14 and AIRCRAFT RESTORER later called with unresponsive episode, and hypoxia with hypoglycemia. Required levophed and transferred to ICU and started on CRRT. +Decadron and required 2u PRBC for Hgb of 5.9. CRRT weaned to iHD on 09/16; S/P Dobhoff placement on 09/16 due to encephalopathy, however on 09/17 DATA CONVERSION DEVELOPER recommended Easy to Chew diet and dobhoff removed. Transferred from ICU to [facility] on 09/17. Palliative care consulted and supporting, as well as nephrology for ESRD. Unfortunately, she was transferred back to the ICU on 10/05/2024 due to concerns for recurrent sepsis after getting a fever and tachycardia with a lactic acidosis during dialysis. Patient [facility] 11-11-2024 Miscellaneous Notes Care Management Progress Note Short Medical why still here: Anticipate Medical readiness for discharge today. Requested update from attending. Also updated attending that patient's Auth is good through today. Planned Discharge Disposition: Shelter [facility] [facility] approved 11/06/24 and Auth approved [...] this time. Auth obtained to return to [place] [facility] Good until 11/11. MD updated. RN reports continued bleeding, low BS and pain this am. Will follow. Per [facility] auth yesterday and that they started a new auth today. Received notification that [facility] has auth for her to return. Noted hgb drop and vascular sx at bedside today to examine her LUE incision, no need for intervention at this time. Facility asked when auth is good until, awaiting response. Updated notes sent to [facility] via [facility] per [facility] request. Await review and response regarding ability to accept. [facility] notified. [facility] messaged to send updates to [facility] with request to start auth to return. Care Management Progress Note Short Medical why still here: s/p graft hematoma sx yesterday for bleeding issues. Vascular signed off this am, hgb stable. Planned Discharge Disposition: Shelter Facility, needs auth to return to [facility], PT asked to see today for updated [...] as well as with her power of consumer attorney and brother Deshawn. They elected to proceed. [...] Fernandez MD Vascular Surgery Date: 11/05/2024 Location: [facility] OR Name: Apoorva Gonzalez, : 1950, Diagnosis Pre-op Diagnosis * Bleeding [R58] Post-op Diagnosis * Bleeding [R58] Procedures Evacuation of left upper extremity hematoma and control of bleeding Surgeons * Raffy Fernandez - Primary Procedure Summary Anesthesia: * No anesthesia type entered * ASA: III Estimated Blood Loss: 35 mL Drains: * None in log * Staff: Video Editing Intern: Kori Khan RN Relief Scrub: Mak Adler [...] receiving Vancomycin or flouroquinolone) Cosigned by Raffy Fenrandez MD at 11/05/2024 3:46 PM EDT Rapid [...] Planned for Dialysis today. Planned Discharge Disposition: Shelter Facility- [place] Latisha, heather, Auth Pending. [facility]. Requested update [...] pulse remained palpable. Within the wound the [place] drain remains as it is a long strip of Nu-Knit hemostatic agent to be removed at a later date. Raffy Fernandez MD Vascular Surgery Date: 11/02/2024 Location: [facility] OR Name: Apoorva Gonzalez, : 1950, Diagnosis Pre-op Diagnosis * Sepsis, due to unspecified organism, unspecified whether acute organ dysfunction present (HCC) [A41.9] Post-op Diagnosis * Sepsis, due to unspecified organism, unspecified whether acute organ dysfunction present (HCC) [A41.9] Procedures EXCISION OF LEFT UPPER EXTREMITY INFECTED GRAFT 63913 - [place] EXCISION INFECTED GRAFT EXTREMITY Surgeons * Raffy Fernandez - Primary Procedure Summary Anesthesia: General ASA: III Estimated Blood Loss: 350 mL Drains: Open Drain Left (Active) Specimens ID Source Type Tests Collected By Collected At Frozen? Priority Lab ID A Arm, Left Tissue AEROBIC AND ANAEROBIC CULTURE WITH STAIN Raffy Fernandez MD 11/02/24 0913 [id number], [facility]-[id number] Description: left upper extremity AV fistula B Arm, Left Tissue AEROBIC AND ANAEROBIC CULTURE WITH STAIN Raffy Fernandez MD 11/02/24 1017 [id number], [facility]-[id number] Description: LEFT ARM DISTAL AV FISTULA GRAFT Staff: Video Editing Intern: Nicole Hyatt RN Relief Video Editing Intern: Alicia Foley RN Scrub Person: Tc Leonard [...] Short Medical why still here: Patient from [facility] for vascular surgery to assess AV fistula. Patient is scheduled for surgery on Wednesday. Planned Discharge Disposition: Shelter Facility- return to [facility] once medically stable Barriers/Today we still Wait: Clinical stability Length of Stay (Days): 10 GMLOS: 4.9 Care Management Progress Note Short Medical why still here: -Pt will transfer to [facility] for vascular surgery to evaluate if new AV fistula will be needed. -Now on PO ATB -Monitoring labs -Has temporary HD cath and non-tunneled L IJ Planned Discharge Disposition: Pt is from [facility] and will return when medically ready. Pt does need auth before she can return. Pt gets HD at facility 5 days/week at facility. Barriers/Today we still Wait: Administering IV medications, Clinical stability, Symptomatic control, Vascular recommendations and Facility pre-cert clinical trials manager to follow and assist as needed. Length of Stay (Days): 9 GMLOS: 4.9 Sent updated notes to return back to [facility] via [facility] per [facility] request. Await review and response regarding ability to accept. [facility] notified. Care Management Progress Note Short Medical why still here: Treating sepsis with IV ATB, ID following. BP's elevated-utilizing prn BP meds. Needs fistula placement for HD. Receives HD T//WED. Has temporary HD cath in place. Will need probable transfer to [facility] for new fistula placement. Left central line to be pulled. Pt will transition to PO ATB at discharge. Planned Discharge Disposition: Shelter Facility Back to [facility]-new auth will be needed when pt is closer to medical stability once she has fistula placement. Tasked JEWELRY CONSULTANT to send updated clinicals to facility. Did speak with her brother Deshawn and confirmed pt will return to [facility] [place]. Barriers/Today we still Wait: Administering IV medications, Clinical stability, Symptomatic control, new fistula Per 10/29 IM note, if pt does not improve within 2-3 days, brother (GENET) may consider hospice. However, hospice will not be pursued at this time. clinical trials manager to follow and assist as needed. Length of Stay (Days): 8 GMLOS: 4.9 Family Communication Number Called: [phone] Name of Designated Family Statistics Professor: Deshawn Crystal HCPOA/ Brother I spoke with the individual listed above Family Statistics Professor Updated on the Following: Changed Code staus to DNRCCA , please see my progress note from today for details Care Management Progress Note Short Medical why still here: receiving hemodialysis on Wednesday, , Wednesday schedule. Has non-tunneled central line. On IV keppra and meropenem. Receiving PRBC today. Planned Discharge Disposition: Shelter Facility Barriers/Today we still Wait: Clinical stability, Administering IV medications, Symptomatic control, Diagnostic workup Requested orders for PT&OT eval for auth for return to [facility] [place]. Length of Stay (Days): 5 GMLOS: 4.9 Referral placed to return back to [facility] via [facility] per [facility] request. Await review and response regarding ability to accept. [facility] notified. ICU Transfer Checklist Transfer Med Reconciliation (resume home meds if able, convert to PO if able) Complete Antibiotics (name, indication, duration, convert to PO if able) Yes, addressed in today's progress note Steroid (indication, duration, convert to PO if able) None Anticipated Hildreth Medications (ICU initiated) or Dose Changes and [...] within 24 hours of ICU transfer, page #[phone] for clarifications. Patient was transferred out of ICU to hospitalist service. Care Management Progress Note Short Medical why still here: Re-admitted 10/22 with sepsis, AMS and buttock wound. Consults to Nephro, Palliative Care, Wound Care and PT/OT. IV Merrem 1gm Q12. Non-tunneled left internal jugular placed. AV fistula felt to be occluded. Chart review shows that patient recently discharged from [facility] to [facility]. Task sent to [facility] to send referral for possible return. PT recommending SNF. Will continue to follow for ongoing needs and improvement in mentation. Planned Discharge Dis[facility] Pending ability to accept back Barriers/Today we still Wait: Clinical stability, Symptomatic control Length of Stay (Days): 2 GMLOS: 4.9 Family Communication Number Called: [phone] Name of Designated Family Statistics Professor: Deshawn Crystal Relationship to patient: Brother Outcome: There was no answer when the number listed above was called and I left a HIPPA compliant message at the number listed above Family Statistics Professor Updated on the Following: -Planned to give non-urgent medical update and re-introduce palliative care team. -No answer. Message left with callback number. -Await callback. Signed, Lilliana Rae APRN, CNP, [facility] Palliative Care/Hospice P[facility] [phone] Family Communication Number Called: n/a Name of Designated Family Statistics Professor: Deshawn Crystal Relationship to patient: Brother Outcome: I spoke with the individual listed above Family Statistics Professor Updated on the Following: -Received callback from [...] yesterday. -He is on the way from [facility] (2 hours) -Discussion around code status. DNR on file, however remains full code at this time. -Questions answered, concerns addressed, emotional support provided. -Return tomorrow. Signed, Lilliana Rae APRN, CNP, [facility] Palliative Care/Hospice P[facility] [phone] 30 Day Readmission. Hospital Readmission Questionnaire not completed due to patient readmitted from skilled or rehabilitation facility. documented in this encounter [facility] 11-01-2024 Consult note Associated Order (s): IP [...] 2022) (additional history below) who presents to [facility] ED with a chief complaint of transferred from [facility] for management of left AV fistula clot/infection. [...] Deshawn it was decided to transfer to [facility] for vascular assessment and possible removal of [...] 01/25/2024 Performed by Chrissy Gilman MD at [facility] ENDOSCOPY IR CVC TUNNELED DIALYSIS CATHETER PLACEMENT 02/27/2022 IR CVC TUNNELED CATHETER PLACEMENT 02/27/2022 Candis Andrade MD [facility] SPECIAL PROCEDURES IR EMBOLIZATION 01/24/2024 IR EMBOLIZATION 01/24/2024 Jovan Glynn MD [facility] SPECIAL PROCEDURES [3] [4] PRN medications: acetaminophen [...] with Altered Mental Status [facility] Squad was called for weakness and altered mental status. Pt is not diabetic. Gcs 14 due to confusion a&ox2. Pt bgl was 99. Pt fistula is in left arm . History of Present Illness Recent course is as follows per recent documentation: Hospitalized at [facility] 08/14/2024 with sudden cardiac arrest thought to be due to complications from sepsis due to a right thigh and anterior hip abscess. She underwent I&D in the OR and was treated with a 7-day course of IV Zosyn, and was discharged to a [facility] facility on 08/24/2024 with a wound VAC. She re-presented to [facility] on 08/26/2024 for increased pain of her right thigh, found to have an expanding hematoma and required 2 units of PRBCs, she was transferred to for consideration of IR embolization but eventually it was stable and did not require this procedure. Last month was admitted to [facility] with COVID, pneumonia, a.fib. She was discharged from [facility] less than 2 weeks ago. Came over to [facility] yesterday with sepsis: high fever, low BP [...] dialysis purposes only by dialysis or trained dairy management specialist for CRRT. Any other access must be ordered and approved by nephrology. Line to be accessed for dialysis purposes only by dialysis or trained dairy management specialist for CRRT. Any other access must be [...] provider. Standing Status: Standing Number of Occurrences: [id number] HYPOGLYCEMIA TREATMENT: blood glucose less than 70 [...] provider. Standing Status: Standing Number of Occurrences: [id number] Full code Standing Status: Standing Number of [...] of Unknown Etiology Inpatient consult to Infectious Diseases--[facility]; Sepsis - with complex history previous bacteremia with cardiac arrest Standing Status: Standing Number of Occurrences: 1 Consulting Group: [facility] [[id number]] Reason for Consult?: Sepsis - with complex history previous bacteremia with cardiac arrest Level of Consultation: Consultation and Management Did you contact the banking consultant?: No When to contact consulting provider: Tomorrow Inpatient consult to Wound Prevention Standing Status: Standing Number of Occurrences: 1 Reason for Consult:: Arnol score, Prevention Inpatient consult to Palliative Care Standing Status: Standing Number of Occurrences: 1 Consulting Group: [facility] [[id number]] Reason for consult?: Assistance with clarification of goals of care Inpatient consult to Nephrology--[facility]; Dialysis Standing Status: Standing Number of Occurrences: 1 Consulting Group: [facility] [[id number]] Reason for Consult?: Dialysis Level of Consultation: Consultation and Management Did you contact the banking consultant?: No When to contact consulting provider: [...] Oxygen. Standing Status: Standing Number of Occurrences: [id number] DATA CONVERSION DEVELOPER eval and treat Standing Status: Standing Number of Occurrences: 1 Reason for DATA CONVERSION DEVELOPER Consult?: Dysphagia (bedside swallow evaluation) DATA CONVERSION DEVELOPER eval and treat Standing Status: Standing Number of Occurrences: 1 Reason for DATA CONVERSION DEVELOPER Consult?: Dysphagia (bedside swallow evaluation) POCT glucose [...] History of blood transfusion 02/27/2022 Hypertension Seizure ([facility]) Developed seizure-like activity on 02/24 during hospital admission [2] Past Surgical History: Procedure Laterality Date AV FISTULA PLACEMENT Left 08/07/2022 COLONOSCOPY N/A 01/25/2024 Performed by Chrissy Gilman MD at [facility] ENDOSCOPY IR CVC TUNNELED DIALYSIS CATHETER PLACEMENT 02/27/2022 IR CVC TUNNELED CATHETER PLACEMENT 02/27/2022 Candis Andrade MD [facility] SPECIAL PROCEDURES IR EMBOLIZATION 01/24/2024 IR EMBOLIZATION 01/24/2024 Jovan Glynn MD [facility] SPECIAL PROCEDURES [3] Family History Problem Relation [...] actively following. Assessment/Plan Goals of care Apoorva Gnozalez lacks capacity for medical decision-making due to encephalopathy. -legal surrogate decision maker is MESHAOA, Brother Deshawn Crystal ( ) Alternate is s/o Edward Ruggiero [phone]) -see subjective for details of conversation -goals of care include: 1) continue infectious workup 2)maintain full code 3)continue goals of care conversations -Palliative care saw last admission while at [facility]-->spouse has , daughter has . Noted that emergency contacts appear to be grandsons-->Mayur and Sharad (both above 18 yo), Brother-->Deshawn Crystal and s/o Edward Ruggiero. -HCPOA documented to have been filled out at facility recently-->copy was emailed to me today from [facility]. Faxed to medical records to be scanned into chart. Sepsis -Recent admission at [facility] for sepsis, Cdiff. -Wound cultures PENDING. -Blood [...] discussion with brother today re: baseline function. -DATA CONVERSION DEVELOPER consulted, unable to address today 2/2 mentation continuing to be poor. -Monitor, remains NPO for now with encephalopathy. Debility Wounds -ongoing, 2/2 chronically ill and long hospitalizations recently. -This is her 5th admission over the last year. -Noted WCB at baseline at facility. -PT/OT when able. -Likely return [place] pending clinical course. -Monitor. Hx Seizures -Keppra 500 mg IVPB ordered. -Monitor. Hx ESRD -Dialysis -Noted that tunneled like previously inserted last admission ([facility]-->10-13) -Nephrology consulted -Creatinine Cl 6.5 mL/min -Avoid nephrotoxic medications. -Renally dose medications -Last dialysis yesterday per brother. Hx CP arrest --->while at [facility]. Palliative Care Encounter -Code Status: Full Code [...] She had a recent long admission at [facility] for about a month, COVID-19, spesis. Cdiff [...] detailed in the note above. Lilliana Rae, MACHINE CLERICAL VERIFIER - MACROECONOMICS PROFESSOR Palliative Care Assessments: Goals of care: Continue Current Management, Live Longer, extend life as much as possible, Strengthening Relationships, and Support for Family/Caregiver Advanced Directives: Health Care Power of Grab Setter, DNR Functional Assessment: PPS 50% mainly sit/lie; can't do any work/extensive disease; considerable assistance; normal or reduced intake; full LOC or confusion Prognosis: depends upon goals of care Spiritual Assessment: No spiritual distress identified Bereavement and Grief: To Be Determined PDMP/OARRS Reviewed: Yes-reviewed Social history: Marital status: Children: one child, . [facility] Work history: n/a status: No Uatsdin erma: None ROS: See palliative care ROS/ESAS below; Detail ROS unable to be obtained due to patient's mental status Mansfield Symptom Assessment Score [place] Score Pain Score (if non-verbal, add .FLACC [...] 01/25/2024 Performed by Chrissy Gilman MD at [facility] ENDOSCOPY IR CVC TUNNELED DIALYSIS CATHETER PLACEMENT 02/27/2022 IR CVC TUNNELED CATHETER PLACEMENT 02/27/2022 Candis Andrade MD [facility] SPECIAL PROCEDURES IR EMBOLIZATION 01/24/2024 IR EMBOLIZATION 01/24/2024 Jovan Glynn MD [facility] SPECIAL PROCEDURES [3] Family History Problem Relation [...] old female who presented 10/22 from [facility] due to altered mental status. In the ED was noted to be febrile, tachycardic, tachypneic and with elevated WBC. Received IV fluid bolus, antibiotics. Admitted to [facility] for further work up. This morning [...] Violence: Not At Risk (08/31/2024) Received from [facility] Humiliation, Afraid, Rape, and Kick questionnaire [...] mouth Nightly. 03/02/22 10/22/24 Yes Evan Joshua, MACHINE CLERICAL VERIFIER - MACROECONOMICS PROFESSOR B complex-vitamin C-folic acid (Nephro-Coleen) 0.8 MG [...] mouth daily. 03/02/22 10/22/24 Yes Evan Joshua, MACHINE CLERICAL VERIFIER - MACROECONOMICS PROFESSOR meclizine (Antivert) 25 MG tablet Take 1 [...] Normal [] Scar/Lesion/Mass Inspection of teeth/lips/gums Dentition: [][place] Teeth []Dentures Lips/Gums: [x]Intact []Lesion Present Mucosa: [][place] []Moist []Dry Neck: External Appearance Overall Appearance: [...] 15.5* ABGs: No results for input(s): PHART, BLG9OUR, PO2ART, ZAL7IGA, SO2ART, M8KCMYEB in the last 72 hours. Lactic Acid: [...] History of blood transfusion 02/27/2022 Hypertension Seizure ([facility]) Developed seizure-like activity on 02/24 during hospital admission [2] Past Surgical History: Procedure Laterality Date AV FISTULA PLACEMENT Left 08/07/2022 COLONOSCOPY N/A 01/25/2024 Performed by Chrissy Gilman MD at [facility] ENDOSCOPY IR CVC TUNNELED DIALYSIS CATHETER PLACEMENT 02/27/2022 IR CVC TUNNELED CATHETER PLACEMENT 02/27/2022 Candis Andrade MD [facility] SPECIAL PROCEDURES IR EMBOLIZATION 01/24/2024 IR EMBOLIZATION 01/24/2024 Jovan Glynn MD [facility] SPECIAL PROCEDURES [3] Family History Problem Relation Name Age of Onset Dementia Mother Stroke Father Prostate cancer Brother 69 Breast cancer Cousin 32 Stomach cancer Mother's Sister 70 [4] No Known Allergies Associated Order(s): IP CONSULT TO INFECTIOUS DISEASES Images from the original note were not included. [facility] - Infectious Diseases Attending Consult Note Reason for Consult: Sepsis History of Present Illness: 74 y/o female was admitted on 10/22/24 from [facility] due to fever of 101.3 F increased [...] admissions; hospitalized from 08/14 - 08/24 at [facility] for cardiac arrest and sepsis and again from 08/26 to 09/06 at for sepsis believed to be due to an infected right thigh wound and hematoma; again at [facility] from 09/13 - 10/12/24 due to covid-19, [...] Violence: Not At Risk (08/31/2024) Received from [facility] Humiliation, Afraid, Rape, and Kick questionnaire [...] Blood culture Site #1 - Suspected Infection [[id number]] Blood, Venous Preliminary result Component Value Blood Culture Blood culture incubation started P 10/22/2024 1705 10/22/2024 2201 Blood culture Site #2 - Suspected Infection [[id number]] Blood, Venous Preliminary result Component Value Blood Culture Blood culture incubation started P 10/22/2024 1602 10/22/2024 2123 Respiratory Pathogens Panel by PCR [[id number]] Swab from Nasopharynx Final result Component Value [...] 1458 Aerobic and Anaerobic Culture with Stain [[id number]] (Abnormal) Other from Buttock, Left In process Component Value No component results 10/22/2024 1434 10/22/2024 2148 Culture, Aerobic Bacteria with Gram Stain [[id number]] (Abnormal) Other from Buttock, Left Preliminary result Component Value Culture Culture in progress P Gram Stain Result Rare Polymorphonuclear leukocytes per low power field Abnormal P Many Gram negative bacilli Abnormal P 10/22/2024 1434 10/22/2024 1458 Anaerobic culture [[id number]] Other from Buttock, Left In process Component Value No component results 10/22/2024 1411 10/22/2024 2201 Blood culture Site #1 - Suspected Infection [[id number]] Blood, Venous Preliminary result Component Value Blood Culture Blood culture incubation started P Lines: Tunneled HD cath on 10/12/24 Radiography/Echo/Other: Procedure Component Value Units Date/Time XR chest 1 view [[id number]] Collected: 10/22/24 1545 Order Status: Completed Updated: [...] EDT IR CVC Tunneled Dialysis Cath Exchange [[id number]] Collected: 10/12/24 134 Order Status: Completed Updated: [...] Date Chronic kidney disease (CKD) Hemodialysis patient ([facility]) ([facility]) Wednesday, , Wednesday History of blood transfusion 02/27/2022 Hypertension Seizure ([facility]) Developed seizure-like activity on 02/24 during hospital admission [2] Past Surgical History: Procedure Laterality Date AV FISTULA PLACEMENT Left 08/07/2022 COLONOSCOPY N/A 01/25/2024 Performed by Chrissy Gilman MD at [facility] ENDOSCOPY IR CVC TUNNELED DIALYSIS CATHETER PLACEMENT 02/27/2022 IR CVC TUNNELED CATHETER PLACEMENT 02/27/2022 Candis Andrade MD [facility] SPECIAL PROCEDURES IR EMBOLIZATION 01/24/2024 IR EMBOLIZATION 01/24/2024 Jovan Glynn MD [facility] SPECIAL PROCEDURES [3] Current Facility-Administered Medications Medication [...] from the original note were not included. [facility] Wound Care CONSULT Note Apoorva Gonzalez AGE: 74 y.o. GENDER: female : 1950 Subjective: HISTORY of PRESENT ILLNESS HPI Apoorva Gonzalez is a 74 y.o. female who presents for a wound consult. HPI: Apoorva is a 74 y.o. female who presented to the emergency department on 10/22/24 with chief complaint of AMS. Pt is resident of [place] at [facility]. Report one day of increasing weakness and AMS. She receives dialysis 5x/week Wed-Wednesday. No missed sessions. Temp 101.3F at SNF. Hospitalized from 08/14 - 08/24 at [facility] for cardiac arrest and sepsis and again from 08/26 to 09/06 at for sepsis believed to be due to an infected right thigh wound and hematoma. Hospitalized again at [facility] from 09/13 - 10/12 due to covid-19 [...] no cyanosis Sacrum extending to left buttock: 2.7r8mDUQ cm. Wound bed with a mix of [...] to follow Recommend to follow up at [facility] Outpatient wound care center after hospital discharge. Any questions or concerns please secure chat [facility] wound/ostomy. Thank you for the [...] Chronic kidney disease (CKD) Hemodialysis patient (CMS/HCC) ([facility]) Wednesday, , Wednesday History of blood transfusion 02/27/2022 Hypertension Seizure ([facility]) Developed seizure-like activity on 02/24 during hospital admission [2] Past Surgical History: Procedure Laterality Date AV FISTULA PLACEMENT Left 08/07/2022 COLONOSCOPY N/A 01/25/2024 Performed by Chrissy Gilman MD at [facility] ENDOSCOPY IR CVC TUNNELED DIALYSIS CATHETER PLACEMENT 02/27/2022 IR CVC TUNNELED CATHETER PLACEMENT 02/27/2022 Candis Andrade MD [facility] SPECIAL PROCEDURES IR EMBOLIZATION 01/24/2024 IR EMBOLIZATION 01/24/2024 Jovan Glynn MD [facility] SPECIAL PROCEDURES [3] Family History Problem Relation [...] creatinine, and vancomycin levels interfaced automatically to Peerz and data has been analyzed and interpreted. [...] via Secure Chat documented in this encounter [facility] 10-31-2024 Hospital Discharge instructions Jessica La RN - 10/31/2024 2:42 PM EDT Images from the original note were not included. Continuity of Care Form Patient Name: Apoorva Gonzalez : 1950 Admit date: 10/22/2024 Discharge date: 11/11/24 Code Status Order: DNR-CCA Advance Directives: Y Admitting Physician: Loni Zambrano MD PCP: Roxie Spain Discharging Nurse: Discharging Hospital Unit/Room#: B2-258/B2-258 A Discharging Unit Phone Number: [phone] Emergency Contact: Extended Emergency Contact Information Primary Emergency Contact: Deshawn Crystal Mobile Relation: Brother Educational Psychology Professor needed? No Secondary Emergency Contact: Edward Ruggiero Mobile Relation: Significant Other Preferred language: Mongolian Educational Psychology Professor needed? No Past Surgical History: Past Surgical History: Procedure Laterality Date AV FISTULA PLACEMENT Left 08/07/2022 COLONOSCOPY N/A 01/25/2024 Performed by Chrissy Gilman MD at [facility] ENDOSCOPY IR CVC TUNNELED DIALYSIS CATHETER PLACEMENT 02/27/2022 IR CVC TUNNELED CATHETER PLACEMENT 02/27/2022 Candis Andrade MD [facility] SPECIAL PROCEDURES IR EMBOLIZATION 01/24/2024 IR EMBOLIZATION 01/24/2024 Jovan Glynn MD [facility] SPECIAL PROCEDURES Immunization History: Immunization History Administered [...] Total assistance Toileting Total assistance Feeding Independent Muck Miner Minimal assistance Med Delivery yes Wound Care Documentation and Therapy: Wound/Incision 09/14/24 Incision Leg Anterior;Right;Upper (Active) Number of days: 46 Wound/Incision 09/26/24 Pressure Injury Sacrum (Active) Site Assessment Laton;Yellow 10/30/24 1002 Aminah-Wound Assessment Clean;Intact 10/30/24 2226 [...] Date: 10/22/24 Discharging to Facility/ Agency Name: [facility] Address: [address] [place] [address] Fax: Dialysis Facility (if applicable) Name:[facility] Address:[address] [place] [address] Dialysis Schedule:TTa Fax: Pullman Conductor/Clerical Production Worker signature: ICIAN SECTION Name: Apoorva Gonzalez Prognosis: [...] to a nursing facility directly from an [facility] or a unit of a [facility] that is not operated by or licensed by [facility] under section 5119.14 or 5160-3-15.1 5 The individual requires the level of services provided by a nursing facility for the condition for which he or she was treated in the hospital and, Physician Certification: I certify the above information and transfer of Apoorva Gonzalez is necessary for the continuing treatment of the diagnosis listed and that she requires chcf facility for less than 30 days. Update [...] intervention. PHYSICIAN SIGNATURE: documented in this encounter [facility] 10-22-2024 Procedure note Android Ui Developer arrived at pt room to draw cultures from tunnel dialysis line. While wearing proper ppe and using aseptic technique. Blood drawn and put into aerobic and anerobic culture bottles. Cvc was heparinized and capped, dressing changed documented in this encounter [facility] 10-22-2024 History and physical note Attending History [...] respite facility but she resides at in [facility], typically uses a wheel chair to get [...] Recently admitted from 09/13 to 10/12 at [facility] for new onset atrial fibrillation complicated [...] recent infected hematoma which was I&D at [facility] and treated with antibiotics from 08/14-08/24 in which she went under cardiac arrest which was thought to be due to the right thigh and anterior hip abscess - which was drained and she left with wound vac. Returned on 08/26 for expanding hematoma to the right thigh requiring 2 units of pRBC, and transferred to [facility] for IR emobolization of thigh hematoma, but [...] Date Chronic kidney disease (CKD) Hemodialysis patient ([facility]) ([facility]) Wednesday, , Wednesday History of blood transfusion 02/27/2022 Hypertension Seizure ([facility]) Developed seizure-like activity on 02/24 [...] Resource Strain: Low Risk (08/31/2024) Received from [facility] Overall Financial Resource Strain (CARDIA) Difficulty of Paying Living Expenses: Not hard at all Food Insecurity: No Food Insecurity (08/31/2024) Received from [facility] Hunger Vital Sign Worried About Running Out of Food in the Last Year: Never true Ran Out of Food in the Last Year: Never true Transportation Needs: No Transportation Needs (08/31/2024) Received from [facility] PRAPARE - Transportation Lack of Transportation (Medical): No Lack of Transportation (Non-Medical): No Physical Activity: Not on file Stress: Not on file Social Connections: Not on file Intimate Partner Violence: Not At Risk (08/31/2024) Received from [facility] Humiliation, Afraid, Rape, and Kick questionnaire Fear of Current or Ex-Partner: No Emotionally Abused: No Physically Abused: No Sexually Abused: No Housing Stability: Low Risk (08/31/2024) Received from [facility] Housing Stability Vital Sign Unable to [...] Emergency Contact: Deshawn Crystal Mobile Relation: Brother Educational Psychology Professor needed? No ADVANCED CARE PLANNING Apoorva Gonzalez : 1950 Primary Care Physician: Roxie Spain The patient and/or family/surrogate voluntarily agreed to participate in ACP services. Patient s cognitive capacity: confused Code Status: [X] [FULL CODE - Continue all advanced life support: CPR,intubation,invasive procedures] [_] [DNR-CCA - DO NOT do CPR, intubation] [_] [DNR-EXPRESS CLERK - Comfort care only] [_] DNR form [was/was not] signed Summary of discussion: The patient health care POA/ surrogate is the following: Edward - partner and Deshawn - brother . [Condition that instigated the [...] and/or family/surrogate. Loni Zambrano MD [facility] Medicine [facility] [1] Past Surgical History: Procedure Laterality Date AV FISTULA PLACEMENT Left 08/07/2022 COLONOSCOPY N/A 01/25/2024 Performed by Chrissy Gilman MD at [facility] ENDOSCOPY IR CVC TUNNELED DIALYSIS CATHETER PLACEMENT 02/27/2022 IR CVC TUNNELED CATHETER PLACEMENT 02/27/2022 Candis Andrade MD [facility] SPECIAL PROCEDURES IR EMBOLIZATION 01/24/2024 IR EMBOLIZATION 01/24/2024 Jovan Glynn MD [facility] SPECIAL PROCEDURES [2] Family History Problem Relation [...] No Known Allergies documented in this encounter [facility] 10-22-2024 Emergency department Note USIV stopped working, unable to start vanc at this time. AIRCRAFT RESTORER RN called for USIV. Provider notified. Pt's grandson Mayur (information in contacts) would like contacted if pt's status changes. US IV placed by Dr Montoya, one set of cultures obtained from that line. DO attempted second US for second set of blood cultures without success and states we will just send one set of blood cultures. Medic unable to obtain US IV. sign writer hand notified and is to attempt. Unable to obtain IV or blood draw after two attempts by RN and one by medic. Medic at bedside at this time attempting US IV for labs and IC access. EMERGENCY DEPARTMENT ENCOUNTER Pt Name: Apoorva Gonzalez Birthdate 1950 Date of evaluation: 10/22/2024 ED Provider: Tuan Monotya DO Subjective: CHIEF COMPLAINT Chief Complaint Patient presents with Altered Mental Status [facility] Squad was called for weakness and altered [...] complaint of AMS. Pt is resident of [place] at [facility]. Collateral hx provided by [facility] nurse and EMS. Report one day of increasing weakness and AMS. She receives dialysis 5x/week Wed-Wednesday. No missed sessions. Temp 101.3F at [facility]. Hospitalized from 08/14 - 08/24 at [facility] for cardiac arrest and sepsis and again from 08/26 to 09/06 at for sepsis believed to be due to an infected right thigh wound and hematoma Hospitalized again at [facility] from 09/13 - 10/12 due to covid-19 [...] Family History[3] SOCIAL HISTORY Social History[4] SCREENINGS Tovey Coma Scale Best Eye Response: To verbal [...] - Abnormal Result Value Color, Urine Light [place] (*) Clarity, Urine Clear pH, Urine 8.5 [...] Glucose 99 Narrative: Performed by: Haley Kirk, [address] [place] [address] [place] [address] CLIA ID: [id number] BLOOD CULTURE BLOOD CULTURE AEROBIC AND ANAEROBIC CULTURE WITH STAIN Narrative: The following orders were created for panel order Aerobic and Anaerobic Culture with Stain. Procedure Abnormality Status --------- ------ Culture, Aerobic Bacteri...[[id number]] In process Anaerobic culture[[id number]] In process Please view results for these [...] Date Chronic kidney disease (CKD) Hemodialysis patient ([facility]/HCC) (HCC) Wednesday, , Wednesday History of blood transfusion 02/27/2022 Hypertension Seizure ([facility]) Developed seizure-like activity on 02/24 during hospital admission [2] Past Surgical History: Procedure Laterality Date AV FISTULA PLACEMENT Left 08/07/2022 COLONOSCOPY N/A 01/25/2024 Performed by Chrissy Gilman MD at [facility] ENDOSCOPY IR CVC TUNNELED DIALYSIS CATHETER PLACEMENT 02/27/2022 IR CVC TUNNELED CATHETER PLACEMENT 02/27/2022 Candis Andrade MD [facility] SPECIAL PROCEDURES IR EMBOLIZATION 01/24/2024 IR EMBOLIZATION 01/24/2024 Jovan Glynn MD [facility] SPECIAL PROCEDURES [3] Family History Problem Relation [...] Resource Strain: Low Risk (08/31/2024) Received from [facility] Overall Financial Resource Strain (CARDIA) Difficulty of Paying Living Expenses: Not hard at all Food Insecurity: No Food Insecurity (08/31/2024) Received from [facility] Hunger Vital Sign Worried About Running Out of Food in the Last Year: Never true Ran Out of Food in the Last Year: Never true Transportation Needs: No Transportation Needs (08/31/2024) Received from [facility] PRAPARE - Transportation Lack of Transportation (Medical): No Lack of Transportation (Non-Medical): No Intimate Partner Violence: Not At Risk (08/31/2024) Received from [facility] Humiliation, Afraid, Rape, and Kick questionnaire Fear of Current or Ex-Partner: No Emotionally Abused: No Physically Abused: No Sexually Abused: No Housing Stability: Low Risk (08/31/2024) Received from [facility] Housing Stability Vital Sign Unable to Pay for Housing in the Last Year: No Number of Times Moved in the Last Year: 0 Homeless in the Last Year: No Tuan Montoya DO Resident 10/22/24 1636 Cosigned by Veronica Abebe MD at 10/23/2024 3:09 PM EDT Emergency Department Encounter [facility] ED Patient: Apoorva Gonzalez : 1950 Date [...] to the emergency department [facility]. Pt is a poor historian. Focused exam: [...] MD 10/22/24 1604 documented in this encounter [facility] 09-06-2024 Plan of care note Problem: Pain [...] include Patient will remain safe throughout shift [facility] 09-06-2024 Miscellaneous Notes Problem: Pain - [...] and HTN who presented as transfer from [facility] for IR embolization of thigh hematoma. Note patient had a recent hospitalization at [facility] on 08/14 with sudden cardiac arrest, though to be sepsis due to R thigh and anterior hip abscess She underwent CT guided aspiration then I&D in OR, treated with IV Zosyn x7 days then discharged 08/24 to SNF with wound vac. Cultures reported to be negative. She re-presented to [facility] on 08/26 for increased pain in her [...] incrementation to 8.1. Patient was transferred to [facility] for IF embolization of thigh hematoma. IR [...] of 08/30, with plan for transfer to [facility] for potential embolization. The patient arrived to [facility] around 0001 08/31/24. Initial Hb was 7.0, [...] injury during shift Transfer Acceptance Note - [facility] Receiving Facility: [facility] Accepting Physician: Carine Mejia DO Date/Time: 7:54 AM Patient: Apoorva Aurora Sending Facility: [facility] Reason for Transfer: Evaluation and management of acutely bleeding R anterior thigh hematoma requiring IR embolization (not available at sending facility). Dr. Clarke Mckeon from IR at [facility] was contacted and agreed with transfer specifically to [facility] for embolization. Pertinent History: Presentation: Presented from [facility] to [facility] ED with increased right lower extremity pain and swelling, concern for hematoma, ortho and vascular consulted. CTA of lower extremity done showing contrast pooling in hematoma with active bleeding. Vascular recommended urgent transfer for IR embolization. Past Medical History: ESRD on HD (T, Th, Sat), HTN, HLD, chronic anemia. Recent hospitalization at [facility] on 08/14 with sudden cardiac arrest, though [...] RA Disposition: Accepted to General Medicine at [facility] for: Management of acute R anterior thigh hematoma with acute blood loss anemia (on chronic anemia) with planned IR embolization at [facility]. Coordination of multidisciplinary evaluation (e.g., IR, vascular surgery, nephrology) Note: Transfer center and sending facility advised to re-contact accepting physician if any clinical deterioration occurs prior to arrival. Hospitalist [facility] documented in this encounter [facility] Work Phone: 09-06-2024 History of Present illness Narrative Occupational Therapy OT Treatment Patient Name: Apoorva Gonzalez Department: [facility] 60 Room: 6013/6013-A Today's Date: 09/06/2024 Time [...] admitted on 08/30 as a transfer from [facility] due to right anterior thigh hematoma. Determined [...] A to elva, educated on use of geospatial program management officer for LE dressing, extended time to complete [...] 1: bed mobility, transfers, functional mobility Outcome Measures:[facility] Daily Activity Putting on and taking off [...] States make urine Musculoskeletal: Comments: Rt thigh iadqrphxo-cgjejpdc-jmdfxlyi intact Ble without edema Skin: General: Skin [...] cont to monitor Outpatient Dialysis schedule: TTS [facility] Access: lt fist- no issues - [...] inpatient and to follow with the outpatient inside polisher at discharge MAYANK Longo 09/06/24 1311 Discharge Planning Home or Post Acute Services In home services Expected Discharge Disposition Home H Does the patient need discharge transport arranged? No Insurance denied auth to SNF. Patient agreeable to home care. MD will place home care orders. Updated flow sheets [facility] Dialysis center informed patient will return tomorrow. Brother will provide transportation home and to dialysis tomorrow. [facility] can accept. They are home care services that are offered through her insurance. Final home care orders and AVS sent to agency. Ann Sheridan RN, BSN Transitional Converter Skimmer Name: Apoorva Gonzalez Age: 74 y.o. Date [...] abscess, s/p I&D and antibiotics who presents [facility] on 08/30 for R thigh hematoma. IR consulted and not recommending IR embolization. Serial H/H. #. Rt Thigh hematoma s/p abscess drainage #Right anterior thigh cellulitis and hematoma - Recent hospitalization at [facility] on 08/14 with sudden cardiac arrest, though [...] TT - consult nephro for HD - [facility] 10 on non dialysis days #acute [...] Post Acute Services Post acute facilities (Rehab/SNF/etc) ([facility]) Type of Post Acute Facility Services jail Expected Discharge Disposition SNF Does the patient need discharge transport arranged? Yes RoundTrip coordination needed? Yes Precert is still pending to [facility]. Confirmed with facility that they offer dialysis onsite. Anticipating discharge today vs tomorrow. Will continue to follow for updates. Ann Sheridan RN, BSN Transitional Converter Skimmer Renal Staff HD Note I visited and [...] Onco-Nephrology Program Division of Nephrology & Hypertension [facility] [1] PRN medications: HYDROmorphone, meclizine [2] Current [...] Once per day on Wednesday Cristina Stack APRN-MACROECONOMICS PROFESSOR HYDROmorphone (Dilaudid) tablet 1 mg 1 mg [...] States make urine Musculoskeletal: Comments: Rt thigh acrxsjxpl-ezzniwcm-xxwphsvy intact Ble without edema Skin: General: Skin [...] inpatient and to follow with the outpatient inside polisher at discharge MAYANK Longo 09/04/24 Transitional Converter Skimmer Notes: Transitional Care Coordination Progress Note: Patient discussed during interdisciplinary rounds. Team members present: MD and TCC Plan per Medical/Surgical team: PT/OT is recommending moderate intensity therapy. Patient is agreeable and would like to return to [facility]. Referral placed with facility. Will continue to follow for updates. [id number] Updates: precert started by [facility]. Will continue to follow for updates. Payor: [...] admitted on 08/30 as a transfer from [facility] due to right anterior thigh hematoma. Determined [...] ADLS and IADLs. Grandson's are available to mushroom picker groceries for her. States she can [...] to lift leg. Would benefit from leg tree trimming line technician Transfers Transfer: Yes Transfer 1 Technique 1: [...] LLE : Within Functional Limits Outcome Measures: [facility] Basic Mobility Turning from your back to [...] Therapy Evaluation Patient Name: Apoorva Gonzalez Department: [place] [address] Room: 60/6013- Today's Date: 09/04/2024 Time Calculation [...] admitted on 08/30 as a transfer from [facility] due to right anterior thigh hematoma. 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 female [...] seizures(on keppra), HTN, presenting as transfer from [facility] for IR intervention for thigh hematoma. [...] cellulitis and hematoma - Recent hospitalization at [facility] on 08/14 with sudden cardiac arrest, though [...] bleeding Disp: PT/ot pending POA: Son: Mayur [phone] I reviewed the resident/fellow's documentation and discussed [...] this note may have been generated using [employer] voice recognition software. Reasonable efforts were made [...] PRN medications: HYDROmorphone, meclizine 09/03/24 1612 Transitional Converter Skimmer Notes: Transitional Care Coordination Progress Note: Patient discussed during interdisciplinary rounds. Team members present: MD and TCC Plan per Medical/Surgical team: Pending PT/OT to evaluate for discharge needs. Anticipating discharge for tomorrow. Payor: [employer]? Discharge disposition: [facility] Potential Barriers: none ADOD: 1-3 days Assessment [...] seizures(on keppra), HTN, presenting as transfer from [facility] for IR intervention for thigh hematoma. [...] cellulitis and hematoma - Recent hospitalization at [facility] on 08/14 with sudden cardiac arrest, though [...] this note may have been generated using [employer] voice recognition software. Reasonable efforts were made [...] seizures(on keppra), HTN, presenting as transfer from [facility] for IR intervention for thigh hematoma. [...] cellulitis and hematoma - Recent hospitalization at [facility] on 08/14 with sudden cardiac arrest, though [...] this note may have been generated using [employer] voice recognition software. Reasonable efforts were made [...] Daily [5] [6] PRN medications: HYDROmorphone, meclizine [facility] met with patient yesterday and again today for medicaid screening. Each time patient refuses screening stating that she has insurance. [facility] states her insurance is showing as inactive in the system. called [facility] to inquire if they are billing insurance for this patient. Dwain at [facility] states that she has a [employer] product and provides numbers: Group # [id number] Plan # [id number]. JOSÉ MIGUEL Rios Apoorva [...] States make urine Musculoskeletal: Comments: Rt thigh txdwffxhd-qylifefy-kpxlzbdg intact Ble without edema Skin: General: Skin [...] Units Result Value Ref Range PRODUCT CODE [id number] Unit Number [id number] Unit ABO O Unit RH POS XM [...] inpatient and to follow with the outpatient inside polisher at discharge Cristina Stack APRN-TAMIR Apoorva Gonzalez [...] Epic chat preferred Clinical updates sent to [facility] via [employer] for patient to return to [facility] [place] upon discharge on TTS schedule. Awaiting update from [facility] on medicaid eligibility. JOSÉ MIGUEL Rios Vancomycin [...] Units Result Value Ref Range PRODUCT CODE [id number] Unit Number [id number] Unit ABO O Unit RH POS XM [...] seizures(on keppra), HTN, presenting as transfer from [facility] for IR intervention for thigh hematoma. [...] cellulitis and hematoma - Recent hospitalization at [facility] on 08/14 with sudden cardiac arrest, though [...] this note may have been generated using [employer] voice recognition software. Reasonable efforts were made [...] admitted for Hematoma. Pharmacy reviewed the patient's [id number] medications and allergies for accuracy. Medications ADDED: All medications on [employer] list Medications CHANGED: None Medications REMOVED: None The list below reflects the updated [employer] list. Prior to Admission Medications Prescriptions Last [...] Patient declines M2B at discharge. Sources: SNF --[facility] Additional Comments: [employer] medication list updated per [facility] SNF medication list List was active as of 08/26 Jenn Martin PharmD Transitions of Care Pharmacist 08/31/24 Secure Chat preferred If no response call [phone] or Renewable Funding Rec 08/31/24 [id number] Discharge Planning Living Arrangements Alone Support Systems [...] were you homeless or living in a alf (including now)? N Transportation Needs In the [...] DME: [place]: denies Dialysis: [facility] in [place] TTS Social Work Needs: Patient stated she has transportation to dialysis. Denies any financial or social work needs. Transportation at discharge: will possibly need transportation home Potential Barriers: none Discharge Disposition: [facility] ADOD: 2-4 days Ann Sheridan RN, BSN Transitional Converter Skimmer Apoorva Gonzalez is a 74 y.o. female [...] seizures(on keppra), HTN, presenting as transfer from [facility] for IR intervention for thigh hematoma. CTA was obtained that showed expanding hematoma in right thigh. Patient status post 2 units packed RBC. IR on board at this time did not recommended embolization, requested continue clinical monitoring and serial H&H. #. Rt Thigh hematoma s/p abscess drainage #Right anterior thigh cellulitis and hematoma - Recent hospitalization at [facility] on 08/14 with sudden cardiac arrest, though [...] this note may have been generated using [employer] voice recognition software. Reasonable efforts were made [...] HYDROmorphone, meclizine, vancomycin documented in this encounter [facility] Work Phone: 09-06-2024 Hospital course Narrative [...] and HTN who presented as transfer from [facility] for IR embolization of thigh hematoma. Note patient had a recent hospitalization at [facility] on 08/14 with sudden cardiac arrest, though to be sepsis due to R thigh and anterior hip abscess She underwent CT guided aspiration then I&D in OR, treated with IV Zosyn x7 days then discharged 08/24 to SNF with wound vac. Cultures reported to be negative. She re-presented to [facility] on 08/26 for increased pain in her [...] incrementation to 8.1. Patient was transferred to [facility] for IF embolization of thigh hematoma. IR [...] Levi Geronimo MD documented in this encounter [facility] Work Phone: 09-06-2024 Hospital Note Formatting of t his note might be different from the original. Apoorva Gonzalez is a 74 y.o. female presenting with pmhx of seizures(on keppra), ESRD on dialysis TTS LUE fistula, and HTN who presented as transfer from [facility] for IR embolization of thigh hematoma. Note patient had a recent hospitalization at [facility] on 08/14 with sudden cardiac arrest, though to be sepsis due to R thigh and anterior hip abscess She underwent CT guided aspiration then I&D in OR, treated with IV Zosyn x7 days then discharged 08/24 to SNF with wound vac. Cultures reported to be negative. She re-presented to [facility] on 08/26 for increased pain in her [...] incrementation to 8.1. Patient was transferred to [facility] for IF embolization of thigh hematoma. IR [...] stable conditioned on 09/06 with home care. [facility] Work Phone: 09-06-2024 Hospital Discharge instructions [...] a pleasure taking care of you at [facility]! Best, Dr. Levi Geronimo Ann Sheridan RN - 09/06/2024 1:31 PM EDT [facility] will provide your home care services. There contact number is . A nurse will contact you 24-48 hours post discharge to arrange services. documented in this encounter [facility] Work Phone: 09-06-2024 Plan of care [...] did make progress toward the following goals. [facility] Work Phone: 09-05-2024 Nurse Note Patient walked around this evening in the hallway with the walker and she tolerated it well. She said moving around helps lessen her pain. [facility] 09-05-2024 Nurse Note Patient walked around [...] 18 Temp 36.4 documented in this encounter [facility] Work Phone: 09-05-2024 Plan of care [...] include Pt will remain safe throughout shift [facility] Work Phone: 09-05-2024 Nurse Note Report [...] Last Updated: 10:59 AM by AMELIA VALENZUELA [facility] 09-05-2024 Nurse Note Report from Sending RN: [...] assess when pt arrives to the unit. [facility] 09-05-2024 Plan of care note Problem: Pain [...] not make progress toward the following goals. [facility] Work Phone: 09-04-2024 Nurse Note During shift change pt was found coming out of bathroom with walker, which was tolerated well. Pt is alert and denies pain with clear speech. Pt has no concerns at this time. Call light and essentials wnr of pt. [facility] 09-04-2024 Plan of care note Problem: Pain [...] by end of the shift Outcome: Progressing [facility] 09-04-2024 Plan of care note The patient's [...] by end of the shift Outcome: Progressing [facility] 09-03-2024 Plan of care note The patient's [...] appropriate for maintaining nutritional needs Outcome: Progressing [facility] 09-02-2024 Procedure note I evaluated the patient during dialysis. No complaints. BP: 128/73 BFR: 400 Anticipated fluid removal: 2L Vascular access: left upper arm AVF Plan: Continue TTS dialysis schedule. Jennifer [facility] Work Phone: 09-02-2024 Procedure note I evaluated the patient during dialysis. No complaints. BP: 128/73 BFR: 400 Anticipated fluid removal: 2L Vascular access: left upper arm AVF Plan: Continue TTS dialysis schedule. Jennifer documented in this encounter [facility] Work Phone: 09-02-2024 Nurse Note Report [...] Last Updated: 10:45 AM by GUILHERME GONZALES [facility] 09-02-2024 Plan of care note Problem: [...] level or baseline comfort level Outcome: Progressing [facility] Work Phone: 09-02-2024 Nurse Note Report from [...] Catheter Dressing: AVF Last Dressing Change: AVF [facility] 09-02-2024 Plan of care note Problem: Pain [...] address these barriers include pain medication . [facility] 09-01-2024 Plan of care note The patient's [...] monitored and maintained or improved Outcome: Progressing [facility] 09-01-2024 clinical trials manager Note IR consulted for consideration of right thigh hematoma aspiration. Imaging features consistent with hematoma without an obvious suspicious target for infection/abscess aspiration. [facility] Work Phone: 09-01-2024 Plan of care note [...] these barriers include surgery and pain medication. [facility] Work Phone: 08-31-2024 Nurse Note Report to [...] Last Updated: 6:24 PM by DEISY CASTAÑEDA [facility] 08-31-2024 Nurse Note Pt hemoglobin 6.4. Md Toscano notified. Order to continue to monitor until next CBC draw. [facility] 08-31-2024 Consult note Associated Order (s): [...] ESRD management She gets dialysis TTS at [facility] in [place]. She states her treatments have been uneventful [...] Hogan MD [1] No Known Allergies T [facility] Work Phone: 08-31-2024 Consult note Associated [...] ESRD management She gets dialysis TTS at [facility] in [place]. She states her treatments have been uneventful [...] presented on 08/31 as a transfer from [facility] for further management of R thigh hematoma and possible IR embolization. Pt was recently hospitalized from 08/14-08/24/[address] [facility] for sudden cardiac arrest and sepsis thought [...] vac. On 08/26/2024, pt presented from [facility] to [facility] ED with increased RLE pain and swelling. [...] concern for active bleeding. Pt transferred to [facility] on 08/31 for further management and possible [...] SEDRATE No results found for: HIV1X2, HIVCONF, EWIKPL7SD No results found for: HEPCABINIT, HEPCAB, HCVPCRQUANT [...] Berta Chambers PA-C Infectious Disease Team [facility] preferred [1] No family history on [...] Evelia Mejia PharmD documented in this encounter [facility] Work Phone: 08-31-2024 Consult note Associated [...] presented on 08/31 as a transfer from [facility] for further management of R thigh hematoma and possible IR embolization. Pt was recently hospitalized from 08/14-08/24/[address] [facility] for sudden cardiac arrest and sepsis thought [...] vac. On 08/26/2024, pt presented from [facility] to [facility] ED with increased RLE pain and swelling. [...] concern for active bleeding. Pt transferred to [facility] on 08/31 for further management and possible [...] SEDRATE No results found for: HIV1X2, HIVCONF, RVJAZH9SO No results found for: HEPCABINIT, HEPCAB, HCVPCRQUANT [...] Berta Chambers PA-C Infectious Disease Team B [facility] irene preferred [1] No family history on [...] [4] [5] PRN medications: HYDROmorphone, meclizine, vancomycin [facility] Work Phone: 08-31-2024 Nurse Note Report from [...] 83) HR 83 RR 18 Temp 36.4 [facility] Work Phone: 08-31-2024 Plan of care note The patient's goals for the shift include rest The clinical goals for the shift include pt will remain safe during shift [facility] Work Phone: 08-31-2024 clinical trials manager Note Apoorva Gonzalez is a 74 [...] of 08/30, with plan for transfer to [facility] for potential embolization. The patient arrived to [facility] around 0001 08/31/24. Initial Hb was 7.0, [...] JUSTINE ROQUE on 08/31/24 at 9:02 AM. [facility] Work Phone: 08-31-2024 Consult note Associated [...] and signs/symptoms of toxicity. Evelia Mejia PharmD [facility] Work Phone: 08-31-2024 Plan of care note [...] safe and free from injury during shift [facility] Work Phone: 08-31-2024 History and physical note History Of Present Illness Apoorva Gonzalez is a 74 y.o. female presenting with pmhx of seizures(on keppra), ESRD on dialysis Tths LUE fistula, HTN, presenting as transfer from [facility] for IR intervention . Patient initially [...] for intervention. 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 No Cory Montelongo MD [1] No [...] decision making as documented in the note. [facility] Work Phone: 08-31-2024 History and physical note History Of Present Illness Apoorva Gonzalez is a 74 y.o. female presenting with pmhx of seizures(on keppra), ESRD on dialysis Tths LUE fistula, HTN, presenting as transfer from [facility] for IR intervention . Patient initially [...] for intervention. Of note: Recent hospitalization at [facility] on 08/14 with sudden cardiac arrest, though [...] LUE fistula, HTN, presenting as transfer from [facility] for IR intervention for R thigh [...] ] consult renal in am - cw lokelia 10 on non dialysis days #acute on chronic anemia :: labs suggesting anemia of chronic disease, re-obtain labs here #hx of seizures cw keppra F: as needed E: K>4 Mg>2 N: npo A: PIV DVT Ppx: none GI Ppx: none Code status: full code NOK: Extended Emergency Contact Information Primary Emergency Contact: Edward mandel Mobile Relation: Significant Other Preferred language: Mongolian Educational Psychology Professor needed? No Cory Montelongo MD [1] No [...] in the note. documented in this encounter [facility] Work Phone: 08-30-2024 clinical trials manager Note Transfer Acceptance Note - [facility] Receiving Facility: [facility] Accepting Physician: Carine Mejia DO Date/Time: 7:54 AM Patient: Apoorva Gonzalez Sending Facility: [facility] Reason for Transfer: Evaluation and management of acutely bleeding R anterior thigh hematoma requiring IR embolization (not available at sending facility). Dr. Clarke Mckeon from IR at [facility] was contacted and agreed with transfer specifically to [facility] for embolization. Pertinent History: Presentation: Presented from SNF to [facility] ED with increased right lower extremity pain and swelling, concern for hematoma, ortho and vascular consulted. CTA of lower extremity done showing contrast pooling in hematoma with active bleeding. Vascular recommended urgent transfer for IR embolization. Past Medical History: ESRD on HD (T, Th, Sat), HTN, HLD, chronic anemia. Recent hospitalization at [facility] on 08/14 with sudden cardiac arrest, though [...] RA Disposition: Accepted to General Medicine at [facility] for: Management of acute R anterior thigh hematoma with acute blood loss anemia (on chronic anemia) with planned IR embolization at [facility]. Coordination of multidisciplinary evaluation (e.g., IR, vascular surgery, nephrology) Note: Transfer center and sending facility advised to re-contact accepting physician if any clinical deterioration occurs prior to arrival. Hospitalist [facility] Work Phone: 07-17-2024 Emergency department Note Discharged. Instructions given. Concerns addressed. Patient aware of dialysis schedule. Visitor at bedside and is driving patient home. Patient is alert oriented and cooperative. Gait is steady. No sign or symptom of distress. Transported to [facility] via wheel chair. [facility] 07-17-2024 Emergency department Note Discharged. Instructions given. Concerns addressed. Patient aware of dialysis schedule. Visitor at bedside and is driving patient home. Patient is alert oriented and cooperative. Gait is steady. No sign or symptom of distress. Transported to [facility] via wheel chair. This RN is taking [...] Chronic kidney disease (CKD) Hemodialysis patient (CMS/HCC) ([facility]) Wednesday, , Wednesday History of blood transfusion 02/27/2022 Hypertension Seizure ([facility]) Developed seizure-like activity on 02/24 during hospital admission SURGICAL HISTORY Past Surgical History: Procedure Laterality Date AV FISTULA PLACEMENT Left 08/07/2022 COLONOSCOPY N/A 01/25/2024 Performed by Chrissy Gilman MD at [facility] ENDOSCOPY IR CVC TUNNELED DIALYSIS CATHETER PLACEMENT 02/27/2022 IR CVC TUNNELED CATHETER PLACEMENT 02/27/2022 Candis Andrade MD [facility] SPECIAL PROCEDURES IR EMBOLIZATION 01/24/2024 IR EMBOLIZATION 01/24/2024 Jovan Glynn MD [facility] PROC[facility] CURRENT MEDICATIONS Current Discharge Medication [...] History of blood transfusion 02/27/2022 Hypertension Seizure ([facility]) Developed seizure-like activity on 02/24 during hospital admission Past Surgical History: Procedure Laterality Date AV FISTULA PLACEMENT Left 08/07/2022 COLONOSCOPY N/A 01/25/2024 Performed by Chrissy Gilman MD at [facility]COPY IR CVC TUNNELED DIALYSIS CATHETER PLACEMENT 02/27/2022 IR CVC TUNNELED CATHETER PLACEMENT 02/27/2022 Candis Andrade MD [facility] PROCED[facility] IR EMBOLIZATION 01/24/2024 IR EMBOLIZATION 01/24/2024 Jovan Glynn MD [facility] SPECIAL PROCEDURES [facility] Marie Navarro [place] 74 y.o. female presents with the following [...] Medications - No data to display The service porter revealed sinus rhythm as interpreted by me. The service porter was ordered secondary to the patient's history [...] PM PATIENT REFERRED TO: Roxie Spain [address] [facility] [phone] Schedule an appointment as soon [...] 07/17/2024 10:26 PM EDT Emergency Department Encounter [facility] EMERGENCY DEPT Patient: Apoorva Gonzalez : 1950 [...] Sanchez DO 07/17/242042 documented in this encounter [facility] 07-17-2024 Hospital Discharge instructions Victor Manuel Kowalski DO - 07/17/2024 8:39 PM EDT Please attend your previously scheduled session for dialysis tomorrow in addition to and this coming Wednesday. Please follow-up with your primary physician or if you do not have a PCP, with the [facility] [place], in 1 week. Please return to the emergency department for any new or worsening symptoms as we discussed. documented in this encounter [facility] 07-17-2024 Emergency department Note This RN is taking over care of this patient at this time. Per Previous shift RN;s patient is at dialysis and will return to ED when dialysis is complete. [facility] 07-17-2024 Nurse Note Patient Name: Apoorva Gonzalez Patient : 1950 Acct: [id number] Date of Admission: 07/17/2024 Room/Bed: 43/ Code [...] wall suction bedside) Second Clinician Verifying: Matilde Juilen Time out performed prior to access at [...] (0) 3 Regular None (Room air) Clear [place] Warm;Dry;No swelling Soft Active 07/17/242000 Alert (0) 3 Regular None (Room air) Clear [place] -- -- -- Labs Lab Results Component [...] - Before each treatment: Dialysis Machine No.: [id number] Machine Number: [id number] Dialyzer Lot No.: [id number] Tubing Lot Number: [id number] All Connections Secure: Yes Venous Parameters Set: Yes Arterial Parameters Set: Yes NS Bag: Yes Saline Line Double Clamped: Yes Dialyzer: Nipro Prime Volume (mL): 200 mL RO Machine Number: [id number] RO Machine Log Sheet Completed: Yes Machine Alarm Self Test: Completed, Passed (07/17/24 1627) Air Foam Detector: Tested, Proper Function, pH Reading Extracorporeal Circuit Tested for Integrity: Yes Machine Conductivity: 13.6 Manual Conductivity: 13.7 Manual Ph: 7 Bleach Test (Neg): Yes Bath Temperature: 36 C (96.8 F) Conductivity Meter Serial #: [id number] Machine Functioning Alarm Free? Yes Dialysis Bath: [...] Tools: Explanation Response to Education: Verbalized Understanding [facility] 07-17-2024 Nurse Note Patient Name: Apoorva Gonzalez Patient : 1950 Acct: [id number] Date of Admission: 07/17/2024 Room/Bed: Critical access hospital Code Status: Prior Allergies: No Known Allergies [...] (0) 3 Regular None (Room air) Clear [place] Warm;Dry;No swelling Soft Active 07/17/242000 Alert (0) 3 Regular None (Room air) Clear [place] -- -- -- Labs Lab Results Component [...] - Before each treatment: Dialysis Machine No.: [id number] RO Machine Number: [id number] Dialyzer Lot No.: [id number] Tubing Lot Number: [id number] All Connections Secure: Yes Venous Parameters Set: Yes Arterial Parameters Set: Yes NS Bag: Yes Saline Line Double Clamped: Yes Dialyzer: Nipro Prime Volume (mL): 200 mL RO Machine Number: [id number] RO Machine Log Sheet Completed: Yes Machine Alarm Self Test: Completed, Passed (07/17/24 1627) Air Foam Detector: Tested, Proper Function, pH Reading Extracorporeal Circuit Tested for Integrity: Yes Machine Conductivity: 13.6 Manual Conductivity: 13.7 Manual Ph: 7 Bleach Test (Neg): Yes Bath Temperature: 36 C (96.8 F) Conductivity Meter Serial #: [id number] Machine Functioning Alarm Free? Yes Dialysis Bath: [...] Education: Verbalized Understanding documented in this encounter [facility] 07-17-2024 Emergency department Note Patient taken to dialysis. [facility] 07-17-2024 Emergency department Note Pt went to an open bed that was not assigned to any nurse or medic and transferred pt over. Said they were waiting too long. Bed was moved to the medic desk by this medic. Visually monitoring until a bed opens. [facility] 07-17-2024 Physician Emergency department Note EMERGENCY DEPARTMENT [...] History of blood transfusion 02/27/2022 Hypertension Seizure ([facility]) Developed seizure-like activity on 02/24 during hospital admission SURGICAL HISTORY Past Surgical History: Procedure Laterality Date AV FISTULA PLACEMENT Left 08/07/2022 COLONOSCOPY N/A 01/25/2024 Performed by Chrissy Gilman MD at [facility]COPY IR CVC TUNNELED DIALYSIS CATHETER PLACEMENT 02/27/2022 IR CVC TUNNELED CATHETER PLACEMENT 02/27/2022 Candis Andrade MD [facility] PROCEDURES IR EMBOLIZATION 01/24/2024 IR EMBOLIZATION 01/24/2024 Jovan Glynn MD [facility] PROCED[facility] CURRENT MEDICATIONS Current Discharge Medication [...] History of blood transfusion 02/27/2022 Hypertension Seizure ([facility]) Developed seizure-like activity on 02/24 during hospital admission Past Surgical History: Procedure Laterality Date AV FISTULA PLACEMENT Left 08/07/2022 COLONOSCOPY N/A 01/25/2024 Performed by Chrissy Gilman MD at [facility] END[facility]COPY IR CVC TUNNELED DIALYSIS CATHETER PLACEMENT 02/27/2022 IR CVC TUNNELED CATHETER PLACEMENT 02/27/2022 Candis Andrade MD [facility] SPECIAL PROCEDURES IR EMBOLIZATION 01/24/2024 IR EMBOLIZATION 01/24/2024 Jovan Glynn MD [facility] SPECIAL PROCEDURES [facility] Narative Apoorva Navarro [place] 74 y.o. female [...] Medications - No data to display The service porter revealed sinus rhythm as interpreted by me. The service porter was ordered secondary to the patient's history [...] PM PATIENT REFERRED TO: Roxie Spain [address] [facility] [phone] Schedule an appointment as soon [...] Sanchez DO at 07/17/2024 10:26 PM EDT [facility] 07-17-2024 Physician Emergency department Note Emergency Department Encounter [facility] EMERGENCY DEPT Patient: Apoorva Gonzalez : 1950 [...] [employer] Rivas Sanchez DO 07/17/242042 [employer] Phone: 06-29-2024 Hospital Discharge instructions Robson Syed [...] of you today. documented in this encounter [facility] 06-29-2024 Emergency department Note Pt returned from dialysis at this time [facility] 06-29-2024 Emergency department Note Pt returned from [...] History of blood transfusion 02/27/2022 Hypertension Seizure ([facility]) Developed seizure-like activity on 02/24 during hospital admission SURGICAL HISTORY Past Surgical History: Procedure Laterality Date AV FISTULA PLACEMENT Left 08/07/2022 COLONOSCOPY N/A 01/25/2024 Performed by Chrissy Gilman MD at [facility] IR CVC TUNNELED DIALYSIS CATHETER PLACEMENT 02/27/2022 IR CVC TUNNELED CATHETER PLACEMENT 02/27/2022 Candis Andrade MD [facility] IR EMBOLIZATION 01/24/2024 IR EMBOLIZATION 01/24/2024 Jovan Glynn MD [facility] CURRENT MEDICATIONS Previous Medications AMLODIPINE [...] acute focal neurological deficit. Normal finger-nose. Normal sigh-he-tzgl. NIHSS 0 Psychiatric: Mood and Affect: Mood [...] Culture. Procedure Abnormality Status --------- ------ Complete Urinalysis[[id number]] Please view results for these tests on [...] upper or lower extremity drift. Cerebellar (finger-nose, xnex-wo-xxch) normal. Brief ED course/MDM: Patient appears nontoxic. [...] provider for clarification.) Veronica Abebe MD Acute [facility] Veronica Abebe MD 06/29/24 1322 documented in this encounter [facility] 06-29-2024 Nurse Note Patient Name: Apoorva Gonzalez Patient : 1950 Acct: [id number] Date of Admission: 06/29/2024 Room/Bed: [facility] Code Status: Prior Allergies: No Known Allergies [...] (0) 3 Regular None (Room air) Clear [place] Warm;Dry;No swelling Soft Active 06/29/24 1756 Alert (0) 3 Regular None (Room air) Clear [place] Warm;Dry;No swelling -- -- Labs Lab Results [...] - Before each treatment: Dialysis Machine No.: [id number] RO Machine Number: [id number] Dialyzer Lot No.: [id number] Tubing Lot Number: [id number] All Connections Secure: Yes Venous Parameters Set: Yes Arterial Parameters Set: Yes NS Bag: Yes Saline Line Double Clamped: Yes Dialyzer: Nipro Prime Volume (mL): 200 mL RO Machine Number: [id number] RO Machine Log Sheet Completed: Yes Machine Alarm Self Test: Completed, Passed (1420) (06/29/24 1421) Air Foam Detector: Tested, Proper Function, pH Reading Extracorporeal Circuit Tested for Integrity: Yes Machine Conductivity: 13.8 Manual Conductivity: 13.6 Manual Ph: 7.2 Bleach Test (Neg): Yes Bath Temperature: 36 C (96.8 F) Conductivity Meter Serial #: [id number] Machine Functioning Alarm Free? Yes Dialysis Bath: [...] Tools: Explanation Response to Education: Verbalized Understanding [facility] 06-29-2024 Nurse Note Patient Name: Apoorva Gonzalez Patient : 1950 Acct: [id number] Date of Admission: 06/29/2024 Room/Bed: [facility] Code Status: Prior Allergies: No Known Allergies [...] (0) 3 Regular None (Room air) Clear [place] Warm;Dry;No swelling Soft Active 06/29/24 1756 Alert (0) 3 Regular None (Room air) Clear [place] Warm;Dry;No swelling -- -- Labs Lab Results [...] - Before each treatment: Dialysis Machine No.: [id number] RO Machine Number: [id number] Dialyzer Lot No.: [id number] Tubing Lot Number: [id number] All Connections Secure: Yes Venous Parameters Set: Yes Arterial Parameters Set: Yes NS Bag: Yes Saline Line Double Clamped: Yes Dialyzer: Nipro Prime Volume (mL): 200 mL RO Machine Number: [id number] RO Machine Log Sheet Completed: Yes Machine Alarm Self Test: Completed, Passed (1420) (06/29/24 1421) Air Foam Detector: Tested, Proper Function, pH Reading Extracorporeal Circuit Tested for Integrity: Yes Machine Conductivity: 13.8 Manual Conductivity: 13.6 Manual Ph: 7.2 Bleach Test (Neg): Yes Bath Temperature: 36 C (96.8 F) Conductivity Meter Serial #: [id number] Machine Functioning Alarm Free? Yes Dialysis Bath: [...] Education: Verbalized Understanding documented in this encounter [facility] 06-29-2024 Emergency department Note Pt notified that she will go to dialysis between 2-3 pm today. [facility] 06-29-2024 Emergency department Note Report given to CYNTHIA Schulte [facility] 06-29-2024 Physician Emergency department Note EMERGENCY DEPARTMENT [...] Date Chronic kidney disease (CKD) Hemodialysis patient ([facility]) (HCC) Wednesday, , Wednesday History of blood transfusion 02/27/2022 Hypertension Seizure ([facility]) Developed seizure-like activity on 02/24 during hospital admission SURGICAL HISTORY Past Surgical History: Procedure Laterality Date AV FISTULA PLACEMENT Left 08/07/2022 COLONOSCOPY N/A 01/25/2024 Performed by Chrissy Gilman MD at [facility] IR CVC TUNNELED DIALYSIS CATHETER PLACEMENT 02/27/2022 IR CVC TUNNELED CATHETER PLACEMENT 02/27/2022 Candis Andrade MD [facility] IR EMBOLIZATION 01/24/2024 IR EMBOLIZATION 01/24/2024 Jovan Glynn MD [facility] CURRENT MEDICATIONS Previous Medications AMLODIPINE [...] Homeless in the Last Year: No SCREENINGS Tovey Coma Scale Best Eye Response: Spontaneous Best [...] acute focal neurological deficit. Normal finger-nose. Normal wwjh-ai-jsea. NIHSS 0 Psychiatric: Mood and Affect: Mood [...] Culture. Procedure Abnormality Status --------- ------ Complete Urinalysis[[id number]] Please view results for these tests on [...] Abebe MD at 06/29/2024 4:48 PM EDT [employer] Phone: 06-29-2024 Physician Emergency department Note Emergency [...] upper or lower extremity drift. Cerebellar (finger-nose, perz-jt-zggq) normal. Brief ED course/MDM: Patient appears nontoxic. [...] [employer] Veronica Abebe MD 06/29/24 1322 [facility] 03-03-2024 Nurse Note Family member here to take patient home, DC papers given to patient, Education completed by mily MARIE but reinforced [facility] 03-03-2024 Nurse Note Family member here to take patient home, DC papers given to patient, Education completed by mily MARIE but reinforced Patient return from dialysis. Alert and oriented. Tele removed and IV Dc'd. States that she called family member for ride home and he is on the way Patient Name: Apoorva Gonzalez Patient : 1950 Acct: [id number] Date of Admission: 03/02/2024 Room/Bed: [facility] B [...] - Before each treatment: Dialysis Machine No.: [id number] Machine Number: [id number] Dialyzer Lot No.: [id number] Tubing Lot Number: [id number] All Connections Secure: Yes Venous Parameters Set: Yes Arterial Parameters Set: Yes NS Bag: Yes Saline Line Double Clamped: Yes Dialyzer: Nipro Prime Volume (mL): 200 mL RO Machine Number: [id number] RO Machine Log Sheet Completed: Yes Machine Alarm Self Test: Completed, Passed (689) (03/03/24 155) Air Foam Detector: Tested, Proper Function Extracorporeal Circuit Tested for Integrity: Yes Machine Conductivity: 13.6 Manual Conductivity: 13.7 Machine Ph: 7 Manual Ph: 7 Bleach Test (Neg): Yes Bath Temperature: 36 C (96.8 F) Conductivity Meter Serial #: [id number] Machine Functioning Alarm Free? Yes Dialysis Bath: [...] Name: Apoorva Gonzalez Patient : 1950 Acct: [id number] Date of Admission: 03/02/2024 Room/Bed: [facility] B [...] Primary RN (First Initial, Last Name, Title): [id number] Incapacitated Nurse Education Completed: Yes HBsAg ONLY: [...] - Before each treatment: Dialysis Machine No.: [id number] RO Machine Number: [id number] Dialyzer Lot No.: [id number] Tubing Lot Number: [id number] All Connections Secure: Yes Venous Parameters Set: Yes Arterial Parameters Set: Yes NS Bag: Yes Saline Line Double Clamped: Yes Dialyzer: Nipro Prime Volume (mL): 200 mL RO Machine Number: [id number] RO Machine Log Sheet Completed: Yes Machine Alarm Self Test: Completed, Passed (03/02/24 1030) Air Foam Detector: Tested, Proper Function, pH Reading Extracorporeal Circuit Tested for Integrity: Yes Machine Conductivity: 13.8 Manual Conductivity: 13.6 Machine Ph: 7 Manual Ph: 7 Bleach Test (Neg): Yes Bath Temperature: 36 C (96.8 F) Conductivity Meter Serial #: [id number] Machine Functioning Alarm Free? Yes Dialysis Bath: [...] Education: Verbalized Understanding documented in this encounter [facility] 03-03-2024 Nurse Note Patient return from dialysis. Alert and oriented. Tele removed and IV Dc'd. States that she called family member for ride home and he is on the way [facility] 03-03-2024 Plan of care note Problem: Pain [...] 1005 by Rickie Birmingham RN Outcome: Progressing [facility] 03-03-2024 Miscellaneous Notes Problem: Pain - Adult [...] Limits Permission given to speak with patient renewals representative/caregiver as indicated: Confirmation of Payer with patient/family: Yes Payer Name: HU[employer]NA MEDICARE ADVANTAGE/HUMANA MEDICARE [place]: No Confirmation of Primary Care Physician: Confirmed [...] [facility] Used: [id number] [place] [place] - [address] Medication Management: [...] improved Outcome: Progressing documented in this encounter [facility] 03-03-2024 Nurse Note Patient Name: Apoorva Gonzalez Patient : 1950 Acct: [id number] Date of Admission: 03/02/2024 Room/Bed: [facility] B [...] - Before each treatment: Dialysis Machine No.: [id number] RO Machine Number: [id number] Dialyzer Lot No.: [id number] Tubing Lot Number: [id number] All Connections Secure: Yes Venous Parameters Set: Yes Arterial Parameters Set: Yes NS Bag: Yes Saline Line Double Clamped: Yes Dialyzer: Nipro Prime Volume (mL): 200 mL RO Machine Number: [id number] RO Machine Log Sheet Completed: Yes Machine Alarm Self Test: Completed, Passed (8268) (03/03/24 6516) Air Foam Detector: Tested, Proper Function Extracorporeal Circuit Tested for Integrity: Yes Machine Conductivity: 13.6 Manual Conductivity: 13.7 Machine Ph: 7 Manual Ph: 7 Bleach Test (Neg): Yes Bath Temperature: 36 C (96.8 F) Conductivity Meter Serial #: [id number] Machine Functioning Alarm Free? Yes Dialysis Bath: [...] Demonstration Response to Education: Verbalized Understanding [facility] [employer] 03-03-2024 History of Present illness Narrative [facility] Progress Note Nephrology following for ESRD [...] today anddch home -Please message me through [employer] chat with any questions or concerns. Please message me through [employer] chat with any questions or concerns. Sean Castaneda MD 03/03/2024 1:00 PM [facility] [address] [place] [address], [address] [place] [address] Office: [phone] Hospitalist Progress Note 03/03/2024 9:58 AM Subjective: [...] Low Potassium (Less than 3000 mg/day) @IODETAILS@ @[email or web address]@ Medications: amLODIPine, 10 mg, Oral, Daily atorvastatin, [...] Advance Directive: Full Code Magalys Can MD, [facility] Hospitalist documented in this encounter [facility] 03-03-2024 Note Formatting of this n ote might be different from the original. Care Managment Initial Assessment Date: 03/03/2024 Patient Name: Apoorva Gonzalez : 1950 Patient Information Source of Information: Patient Cognition/Language: WFL - Within Functional Limits Permission given to speak with patient renewals representative/caregiver as indicated: Confirmation of Payer with patient/family: Yes Payer Name: HUMANA MEDICARE ADVANTAGE/HUMANA MEDICARE [place]: No Confirmation of Primary Care Physician: Confirmed [...] Yes Pharmacy Used: [id number] - [facility], [place] - [address] Medication Management: Independent Transportation/Shopping: Independent Transportation Mode: Car Needs Assistance with Transportation at Discharge: No (Edward-friend) Meal Preparation: Independent Laundry/Cleaning: Independent Finances/Bill Paying: Independent Communication: Independent Types of Care Services/Equipment Utilized Care Services: (NA) Dialysis Type: Hemo Dialysis Provider Name/Location: [facility] Dialysis Schedule: //WED Transportation to Dialysis: self [...] plan. Nephrology following. HD. Citlali Chu RN [facility] 03-03-2024 Note Formatting of this n ote might be different from the original. Care Managment Initial Assessment Date: 03/03/2024 Patient Name: Apoorva Gonzalez : 1950 Patient Information Source of Information: Patient Cognition/Language: WFL - Within Functional Limits Permission given to speak with patient renewals representative/caregiver as indicated: Confirmation of Payer with [...] (NA) Dialysis Type: Hemo Dialysis Provider Name/Location: [facility] Dialysis Schedule: //WED Transportation to Dialysis: self [...] plan. Nephrology following. HD. Citlali Chu RN [employer] 03-03-2024 Plan of care note Problem: Pain [...] monitored and maintained or improved Outcome: Progressing [employer] 03-03-2024 Plan of care note Problem: Pain [...] monitored and maintained or improved Outcome: Progressing [facility] 03-02-2024 Consult note Formatting of th is note is different from the original. [facility] Consult Note Consults HPI Apoorva Gonzalez [...] vomiting. Patient is TTS HD patient at [facility], with Dr. Meza as outpatient inside polisher. Past Medical History: Diagnosis Date Chronic kidney [...] repeat in am Please message me through [employer] chat with any questions or concerns. Sean Castaneda MD 03/02/2024 12:51 PM [facility] [address] [place] [address], [address] [place] [address] Office: [phone] [facility] 03-02-2024 Consult note Formatting of th is note is different from the original. [facility] Consult Note Consults HPI Apoorva Gonzalez [...] vomiting. Patient is TTS HD patient at [facility], with Dr. Meza as outpatient inside polisher. Past Medical History: Diagnosis Date Chronic kidney disease (CKD) Hemodialysis patient ([facility]) (HCC) Wednesday, , Wednesday History of blood [...] concerns. Sean Castaneda MD 03/02/2024 12:51 PM [facility] [address], [address] [place] [address] Office: [phone] documented in this encounter [facility] 03-02-2024 Nurse Note Patient Name: Apoorva Gonzalez Patient : 1950 Acct: [id number] Date of Admission: 03/02/2024 Room/Bed: [facility] B [...] Primary RN (First Initial, Last Name, Title): [id number] Incapacitated Nurse Education Completed: Yes HBsAg ONLY: [...] - Before each treatment: Dialysis Machine No.: [id number] Machine Number: [id number] Dialyzer Lot No.: [id number] Tubing Lot Number: [id number] All Connections Secure: Yes Venous Parameters Set: Yes Arterial Parameters Set: Yes NS Bag: Yes Saline Line Double Clamped: Yes Dialyzer: Nipro Prime Volume (mL): 200 mL RO Machine Number: [id number] RO Machine Log Sheet Completed: Yes Machine Alarm Self Test: Completed, Passed (03/02/24 1030) Air Foam Detector: Tested, Proper Function, pH Reading Extracorporeal Circuit Tested for Integrity: Yes Machine Conductivity: 13.8 Manual Conductivity: 13.6 Machine Ph: 7 Manual Ph: 7 Bleach Test (Neg): Yes Bath Temperature: 36 C (96.8 F) Conductivity Meter Serial #: [id number] Machine Functioning Alarm Free? Yes Dialysis Bath: [...] Tools: Explanation Response to Education: Verbalized Understanding [facility] [employer] 03-02-2024 History and physical note Attending History [...] History of blood transfusion 02/27/2022 Hypertension Seizure ([facility]) Developed seizure-like activity on 02/24 during hospital admission Past Surgical History: Past Surgical History: Procedure Laterality Date AV FISTULA PLACEMENT Left 08/07/2022 COLONOSCOPY N/A 01/25/2024 Performed by Chrissy Gilman MD at [facility] IR CVC TUNNELED DIALYSIS CATHETER PLACEMENT 02/27/2022 IR CVC TUNNELED CATHETER PLACEMENT 02/27/2022 Candis Andrade MD [facility] IR EMBOLIZATION 01/24/2024 IR EMBOLIZATION 01/24/2024 Jovan Glynn MD [facility] Social History: Social History Socioeconomic [...] [employer] Relation: Significant Other Preferred language: Mongolian Educational Psychology Professor needed? No ADVANCED CARE PLANNING Apoorva Gonzalez : 1950 Primary Care Physician: Roxie Spain The patient and/or family/surrogate voluntarily agreed to participate in ACP services. Patient s cognitive capacity: AAOx3 Code Status: [X] [FULL CODE - Continue all advanced life support: CPR,intubation,invasive procedures] [_] [DNR-CCA - DO NOT do CPR, intubation] [_] [DNR-EXPRESS CLERK - Comfort care only] [_] DNR form [was/was not] signed Total time spent: 5 minutes were spent discussing the patient's resuscitation status, advance care planning, and end of life care, with patient and/or family/surrogate. John Mayes DO Division of Hospitalist Medicine [facility] History and physical note Attending History [...] 01/25/2024 Performed by Chrissy Gilman MD at [facility] IR CVC TUNNELED DIALYSIS CATHETER PLACEMENT 02/27/2022 IR CVC TUNNELED CATHETER PLACEMENT 02/27/2022 Candis Andrade MD [facility] IR EMBOLIZATION 01/24/2024 IR EMBOLIZATION 01/24/2024 Jovan Glynn MD [facility] Social History: Social History Socioeconomic [...] [employer] Relation: Significant Other Preferred language: Mongolian Educational Psychology Professor needed? No ADVANCED CARE PLANNING Apoorva Navarro Rajinder : 1950 Primary Care Physician: Roxie Spain The patient and/or family/surrogate voluntarily agreed to participate in ACP services. Patient s cognitive capacity: AAOx3 Code Status: [X] [FULL CODE - Continue all advanced life support: CPR,intubation,invasive procedures] [_] [DNR-CCA - DO NOT do CPR, intubation] [_] [DNR-EXPRESS CLERK - Comfort care only] [_] DNR form [was/was not] signed Total time spent: 5 minutes were spent discussing the patient's resuscitation status, advance care planning, and end of life care, with patient and/or family/surrogate. John Mayes DO Division of Hospitalist Medicine [facility] documented in this encounter [facility] 03-02-2024 Plan of care note Problem: Pain [...] monitored and maintained or improved Outcome: Progressing [facility] 03-02-2024 Emergency department Note Pt in for transport to the floor. Orders states she can come off tele for transport. [facility] 03-02-2024 Emergency department Note Pt in for [...] History of blood transfusion 02/27/2022 Hypertension Seizure ([facility]) Developed seizure-like activity on 02/24 during hospital admission SURGICAL HISTORY Past Surgical History: Procedure Laterality Date AV FISTULA PLACEMENT Left 08/07/2022 COLONOSCOPY N/A 01/25/2024 Performed by Chrissy Gilman MD at [facility] IR CVC TUNNELED DIALYSIS CATHETER PLACEMENT 02/27/2022 IR CVC TUNNELED CATHETER PLACEMENT 02/27/2022 Candis Andrade MD [facility] IR EMBOLIZATION 01/24/2024 IR EMBOLIZATION 01/24/2024 Jovan Glynn MD [facility] CURRENT MEDICATIONS Current Discharge Medication [...] Abnormal Glucose 239 (*) Narrative: Performed by: [facility], [address] [place] [id number] CLIA ID: [id number] POCT GLUCOSE METER UNSOLICITED RESULTS - Abnormal Glucose 57 (*) Narrative: Performed by: [facility], [address] [place] [address] 15[address] CLIA ID: [id number] TROPONIN, WITH SERIAL REFLEX - Normal TROPONIN [...] - Normal Glucose 88 Narrative: Performed by: [facility], [address] [place] [address]17 CLIA ID: [id number] POCT GLUCOSE METER UNSOLICITED RESULTS - Normal Glucose 88 Narrative: Performed by: [facility], [address] [place] [address]24 CLIA ID: [id number] POCT GLUCOSE METER POCT GLUCOSE METER POCT GLUCOSE METER POCT GLUCOSE METER POCT GLUCOSE METER POCT GLUCOSE METER POCT GLUCOSE METER EKG: Sinus rhythm, rate 86, normal axis, KS interval 123, QTc 483, no ST segment elevations or depressions, no evidence of acute ischemia Encounter Date: 03/02/24 ECG 12 lead Result Value Heart Rate 86 QRSD Interval 96 QT Interval 404 QTC Interval 483 P [place] 58 QRS [place] 0 T Wave [place] 51 [place] Interval 123 Impression Sinus rhythm Probable left [...] 4:24 PM EST documented in this encounter [facility] 03-02-2024 Emergency department Note Pt BGT was 57. Pt AxOx4. Oral glucose given [facility] 03-02-2024 Emergency department Note Report from CYNTHIA Jim [facility] 03-02-2024 Emergency department Note Pt 88% on RA in triage. Placed on 2L per NC [facility] 03-02-2024 Physician Emergency department Note Emergency Department [...] [employer] Marcus Ragland DO 03/02/24 0645 [employer] Phone: 03-02-2024 Physician Emergency department Note EMERGENCY [...] History of blood transfusion 02/27/2022 Hypertension Seizure ([facility]) Developed seizure-like activity on 02/24 during hospital admission SURGICAL HISTORY Past Surgical History: Procedure Laterality Date AV FISTULA PLACEMENT Left 08/07/2022 COLONOSCOPY N/A 01/25/2024 Performed by Chrissy Gilman MD at [facility] IR CVC TUNNELED DIALYSIS CATHETER PLACEMENT 02/27/2022 IR CVC TUNNELED CATHETER PLACEMENT 02/27/2022 Candis Andrade MD [facility] IR EMBOLIZATION 01/24/2024 IR EMBOLIZATION 01/24/2024 Jovan Glynn MD [facility] CURRENT MEDICATIONS Current Discharge Medication [...] Abnormal Glucose 239 (*) Narrative: Performed by: [facility], [address] [place] [address] CLIA ID: [id number] POCT GLUCOSE METER UNSOLICITED RESULTS - Abnormal Glucose 57 (*) Narrative: Performed by: [facility], [address] [place] [address] CLIA ID: [id number] TROPONIN, WITH SERIAL REFLEX - Normal TROPONIN [...] - Normal Glucose 88 Narrative: Performed by: [facility], [address] [place] [address]89 CLIA ID: [id number] POCT GLUCOSE METER UNSOLICITED RESULTS - Normal Glucose 88 Narrative: Performed by: [facility], [address] [place] [address]26 CLIA ID: [id number] POCT GLUCOSE METER POCT GLUCOSE METER POCT GLUCOSE METER POCT GLUCOSE METER POCT GLUCOSE METER POCT GLUCOSE METER POCT GLUCOSE METER EKG: Sinus rhythm, rate 86, normal axis, [place] interval 123, QTc 483, no ST segment elevations or depressions, no evidence of acute ischemia Encounter Date: 03/02/24 ECG 12 lead Result Value Heart Rate 86 QRSD Interval 96 QT Interval 404 QTC Interval 483 P [place] 58 QRS [place] 0 T Wave [place] 51 [place] Interval 123 Impression Sinus rhythm Probable left [...] Ragland DO at 03/02/2024 4:24 PM EST [facility] 02-20-2024 Nurse Note RN reviewed discharge AVS with pt and pt verbalized understanding. Pt ambulated out independently to meet at entrance [facility] 02-20-2024 Nurse Note RN reviewed discharge AVS with pt and pt verbalized understanding. Pt ambulated out independently to meet at entrance documented in this encounter [facility] 02-20-2024 Hospital course Narrative Hospitalist Discharge Summary [...] MG tablet Recommended Follow-up: Roxie Judit [address] [facility] [place] [address] Schedule an appointment as soon as possible for a visit in 1 week(s) Complexity of Follow up: [] Moderate Complexity: follow up within 7-14 calendar days (94240) [x] Severe Complexity: follow up within 7 calendar days (73110) Follow up Testing, Pending results or Referrals [...] Geoff Gonsales MD Division of Hospitalist Medicine [facility] 02/20/2024, 3:01 PM documented in this encounter [facility] [employer] 02-20-2024 History of Present illness Narrative [facility] Nephrology Progress Note Patient is a 73 [...] including ESRD, HTN, seizure who presented with [facility]. Nephrology following for ESRD. ESRD -patient on [...] Ok for Discharge Please message me through Stockr chat with any questions or concerns. Pipe Soto MD 02/20/2024 2:08 PM [facility] [address] [place] [address], [address] [place] [id number] Office: [phone] [facility] Respiratory Care Department Progress Note As [...] of this patient, documented in this encounter [facility] 02-20-2024 Plan of care note Problem: Excessive [...] other facility with appropriate resources Outcome: Progressing [facility] 02-20-2024 Miscellaneous Notes Problem: Excessive Fluid Volume [...] resources Outcome: Progressing documented in this encounter [facility] 02-19-2024 Emergency department Note Patient taken to floor. Respirations even and unlabored. No acute distress noted. AXO x 4 and vitals obtained, stable for tx. [facility] 02-19-2024 Emergency department Note Patient taken to floor. Respirations even and unlabored. No acute distress noted. AXO x 4 and vitals obtained, stable for tx. Report from CYNTHIA Law. Report given to Gertrude MARIE Emergency Department Encounter [facility] EMERGENCY DEPT Patient: Apoorva Gonzalez : 1950 [...] DO 02/19/24 0533 documented in this encounter [facility] 02-19-2024 Emergency department Note Report from CYNTHIA Law. [facility] 02-19-2024 Emergency department Note Report given to Gertrude MARIE [facility] 02-19-2024 Consult note Associated Order (s): Inpatient consult to Nephrology [facility] Consult Note Inpatient consult to Nephrology [...] Date Chronic kidney disease (CKD) Hemodialysis patient ([facility]/HCC) (HCC) Wednesday, , Wednesday History of blood [...] on TTS schedule, Please message me through Stockr chat with any questions or concerns. Pipe Soto MD 02/19/2024 1:38 PM [facility] [address] [place] [address], [address] [place] [address] Office: [phone] [facility] 02-19-2024 Consult note Associated Order (s): Inpatient consult to Nephrology [facility] Consult Note Inpatient consult to Nephrology [...] Date Chronic kidney disease (CKD) Hemodialysis patient ([facility]/HCC) (HCC) Wednesday, , Wednesday History of blood transfusion 02/27/2022 Hypertension Seizure ([facility]) Developed seizure-like activity on 02/24 [...] on TTS schedule, Please message me through Stockr chat with any questions or concerns. Pipe Soto MD 02/19/2024 1:38 PM [facility] [address] [place] [address], [address] [place] [address] Office: [phone] documented in this encounter [facility] 02-19-2024 History and physical note Attending History [...] 01/25/2024 Performed by Chrissy Gilman MD at [facility] ENDOSCOPY IR CVC TUNNELED DIALYSIS CATHETER PLACEMENT 02/27/2022 IR CVC TUNNELED CATHETER PLACEMENT 02/27/2022 Candis Andrade MD [facility] SPECIAL PROCEDURES IR EMBOLIZATION 01/24/2024 IR EMBOLIZATION 01/24/2024 Jovan Glynn MD [facility] SPECIAL PROCEDURES Social History: Social History Socioeconomic [...] Ruggiero Mobile Relation: Significant Other Preferred language: Mongolian Educational Psychology Professor needed? No Secondary Emergency Contact: Mayur Matthews Mobile Relation: [place] [employer] Apoorva Gonzalez : 1950 Primary Care Physician: Roxie Spain The patient and/or family/surrogate voluntarily agreed to participate in ACP services. Patient s cognitive capacity: alert and oriented Code Status: [x_] [FULL CODE - Continue all advanced life support: CPR,intubation,invasive procedures] [_] [DNR-CCA - DO NOT do CPR, intubation] [_] [DNR-EXPRESS CLERK - Comfort care only] [_] DNR form [...] DO Division of Hospitalist Medicine Acute care [facility] [place] [employer] Work Phone: 02-19-2024 History and physical note [...] 01/25/2024 Performed by Chrissy Gilman MD at [facility] ENDOSCOPY IR CVC TUNNELED DIALYSIS CATHETER PLACEMENT 02/27/2022 IR CVC TUNNELED CATHETER PLACEMENT 02/27/2022 Candis Andrade MD [facility] SPECIAL PROCEDURES IR EMBOLIZATION 01/24/2024 IR EMBOLIZATION 01/24/2024 Jovan Glynn MD [facility] PROCEDURES Social History: Social History Socioeconomic [...] Ruggiero Mobile Relation: Significant Other Preferred language: Mongolian Educational Psychology Professor needed? No Secondary Emergency Contact: Mayur Matthews Mobile Relation: Grandchild [employer] Apoorva Navarro [place] : 1950 Primary Care Physician: Roxie Spain The patient and/or family/surrogate voluntarily agreed to participate in ACP services. Patient s cognitive capacity: alert and oriented Code Status: [x_] [FULL CODE - Continue all advanced life support: CPR,intubation,invasive procedures] [_] [DNR-CCA - DO NOT do CPR, intubation] [_] [DNR-EXPRESS CLERK - Comfort care only] [_] DNR form [...] and/or family/surrogate. Radha Kevin DO [facility] Medicine [facility] documented in this encounter [facility] 02-19-2024 Physician Emergency department Note Emergency Department Encounter [facility] EMERGENCY DEPT Patient: Apoorva Gonzalez : 1950 [...] [employer] Cassie Mace DO 02/19/24 0533 [employer] Phone: 02-12-2024 Emergency department Note EMERGENCY DEPARTMENT [...] otherwise acutely negative except as in the [place]. PAST MEDICAL HISTORY Past Medical History: Diagnosis Date Chronic kidney disease (CKD) Hemodialysis patient (CMS/HCC) (HCC) Wednesday, , Wednesday History of blood transfusion 02/27/2022 Hypertension Seizure ([facility]) Developed seizure-like activity on 02/24 during hospital admission SURGICAL HISTORY Past Surgical History: Procedure Laterality Date AV FISTULA PLACEMENT Left 08/07/2022 COLONOSCOPY N/A 01/25/2024 Performed by Chrissy Gilman MD at [facility] ENDOSCOPY IR CVC TUNNELED DIALYSIS CATHETER PLACEMENT 02/27/2022 IR CVC TUNNELED CATHETER PLACEMENT 02/27/2022 Candis Andrade MD [facility] SPECIAL PROCEDURES IR EMBOLIZATION 01/24/2024 IR EMBOLIZATION 01/24/2024 Jovan Glynn MD [facility] PROCEDURES CURRENT MEDICATIONS Discharge Medication List [...] dc PATIENT REFERRED TO: Roxie Spain [address] [address] Schedule an appointment as soon [...] oriented x's 4 documented in this encounter [facility] 02-12-2024 Emergency department Triage note Treated with medication, pt took it this morning and was high. Pt was able to ambulate without difficulty. Alert and oriented x's 4 [facility] 02-12-2024 Physician Emergency department Note EMERGENCY DEPARTMENT [...] otherwise acutely negative except as in the [place]. PAST MEDICAL HISTORY Past Medical History: Diagnosis Date Chronic kidney disease (CKD) Hemodialysis patient (CMS/HCC) (HCC) Wednesday, , Wednesday History of blood transfusion 02/27/2022 Hypertension Seizure ([facility]) Developed seizure-like activity on 02/24 during hospital admission SURGICAL HISTORY Past Surgical History: Procedure Laterality Date AV FISTULA PLACEMENT Left 08/07/2022 COLONOSCOPY N/A 01/25/2024 Performed by Chrissy Gilman MD at [facility] ENDOSCOPY IR CVC TUNNELED DIALYSIS CATHETER PLACEMENT 02/27/2022 IR CVC TUNNELED CATHETER PLACEMENT 02/27/2022 Candis Andrade MD [facility] PROCEDURES IR EMBOLIZATION 01/24/2024 IR EMBOLIZATION 01/24/2024 Jovan Glynn MD [facility] PROC[facility] CURRENT MEDICATIONS Discharge Medication List [...] DISPOSITION/PLAN dc PATIENT REFERRED TO: Roxie Spain [address] [place] [address] Schedule an appointment as soon as [...] Medicine Provider Marcus Ragland DO 02/12/24 1448 [facility] 01-25-2024 History of Present illness Narrative [facility] Progress Note Nephrology following for ESRD. [...] concerns. Fabrizio Scott MD 01/25/2024 11:09 PM [facility] [address], [address] [place] [address] Office: [phone] Hospitalist Progress Note 01/25/2024 9:54 AM [phone]: Please page me for patient care issues. [phone]: Please page [facility] night Hospitalist for any issues. Subjective: Admit Date: 01/19/2024 PCP: Roxie Spain Room#: Endo Pool/NONE Interval History: 73 y.o. F with a PMHx significant for ESRD on HD (T//), HTN, hx seizures (not currently on anti-epileptic therapy) who was initially admitted to the [facility] 01/18 for anemia 2/2 descending colonic [...] History of blood transfusion 02/27/2022 Hypertension Seizure ([facility]) Developed seizure-like activity on 02/24 during hospital admission NPO diet @[id number]@ Medications: [Transfer Hold] amLODIPine, 5 mg, Oral, [...] Ruggiero Mobile Relation: Significant Other Preferred language: Mongolian Educational Psychology Professor needed? No Secondary Emergency Contact: Deshawn Crystal Mobile Relation: Brother Educational Psychology Professor needed? No Advance Directive: Full Code Anticipated Discharge - Date -1021 - Location - Home - Pending the following -pending clinical course, hemoglobin stabilization, Total time spent (which include face to face and non face to face encounters) : 30 minutes Leticia Collier MD,MD Division of Hospitalist Medicine Images from the original note were not included. PHYSICAL THERAPY [facility] Initial Evaluation Name/MRN: Apoorva Gonzalez ([id number]) Evaluation Date: 01/24/2024 Date of : 1950 Admission Date: 01/19/2024 5:28 PM Age: 73 y.o. Room[facility]Bed: [facility] Discharge Recommendation: Home with assist PRN [...] TUNNELED CATHETER PLACEMENT 02/27/2022 Candis Andrade MD [facility] PROCEDURES Admission Diagnosis: Patient Active Problem [...] Responsibilities: Independent Receives Help From: None Active Interpretative Dancer: Yes Prior Level of Function Prior Level [...] of Care supervision is transferred to a [facility] Therapy Services Physical Therapist. Goals and/or treatment plan was established in collaboration with patient/family/other representatives. Cosigned by Rosey Damico PT at 01/24/2024 1:24 PM EDT Hospitalist Progress Note 01/24/2024 8:55 AM [phone]: Please page me for patient care issues. [phone]: Please page [facility] night Hospitalist for any issues. Subjective: Admit Date: 01/19/2024 PCP: Roxie Spain Room#: W6-622/W6-622 B Interval History: 73 y.o. F with a PMHx significant for ESRD on HD (T//), HTN, hx seizures (not currently on anti-epileptic therapy) who was initially admitted to the [facility] 01/18 for anemia 2/2 descending colonic [...] on 02/24 during hospital admission NPO diet @[email or web address]@ Medications: amLODIPine, 5 mg, Oral, Daily pantoprazole, [...] Extended Emergency Contact Information Primary Emergency Contact: Ewdard Ruggiero Mobile Relation: Significant Other Preferred language: Mongolian Educational Psychology Professor needed? No Secondary Emergency Contact: Deshawn Crystal Mobile Relation: Brother Educational Psychology Professor needed? No Advance Directive: Full Code Anticipated Discharge - Date -TBD - Location - Home - Pending the following -pending clinical course, workup, colonoscopy Total time spent (which include face to face and non face to face encounters) : 30 minutes Leticia Collier MD,MD Division of Hospitalist Medicine Images from the original note were not included. OCCUPATIONAL THERAPY [facility] Initial Evaluation Name/MRN: Apoorva Gonzalez ([id number]) Evaluation Date: 01/24/2024 Date of : 1950 Admission Date: 01/19/2024 5:28 PM Age: 73 y.o. Room[facility]Bed: [facility] Discharge Recommendation: Home with assist PRN [...] Date Chronic kidney disease (CKD) Hemodialysis patient ([facility]/HCC) ([facility]) Wednesday, , Wednesday History of blood transfusion 02/27/2022 Hypertension Seizure ([facility]) Developed seizure-like activity on 02/24 during hospital admission Past Surgical History: Past Surgical History: Procedure Laterality Date AV FISTULA PLACEMENT Left 08/07/2022 IR CVC TUNNELED DIALYSIS CATHETER PLACEMENT 02/27/2022 IR CVC TUNNELED CATHETER PLACEMENT 02/27/2022 Candis Andrade MD [facility] SPECIAL PROCEDURES Admission Diagnosis: Patient Active Problem [...] Responsibilities: Independent Receives Help From: None Active Interpretative Dancer: Yes Prior Level of Function Prior Level [...] Modified Independent Functional mobility: Modified Independent Patient VA for sit-stand from EOB x 2 attempts. Patient ambulated to commode in bathroom with no device and VA. Patient transferred on/off commode with no grab [...] of Care supervision is transferred to a [facility] Services Occupational Therapist. Goals and/or treatment plan was established in collaboration with patient/family/other representatives. [facility] Progress Note Nephrology following for ESRD. [...] Castaneda MD 01/23/2024 12:09 PM [facility] [address] [place] [address], [address] [place] [address] Office: [phone] ICU Progress Note Name: Apoorva Gonzalez : 1950(73 y.o.) Date: 01/23/24 Team: MICU Attending: Dr. Schneider Subjective: Hospital Summary: 73 y.o. F with a PMHx significant for ESRD on HD (T//), HTN, hx seizures (not currently on anti-epileptic therapy) who was initially admitted to the [facility] 01/18 for anemia 2/2 descending colonic [...] Normal [] Scar/Lesion/Mass Inspection of teeth/lips/gums Dentition: [][place] Teeth []Dentures Lips/Gums: [x]Intact []Lesion Present Mucosa: [x]Laton []Moist []Dry Neck: External Appearance Overall Appearance: [...] displayed. ABGs: No results for input(s): PHART, VNK7PIV, PO2ART, IMS4PVM, SO2ART, I3JQKORP in the last 72 hours. Lactic Acid: [...] PO DVT Prophylaxis: SCDs Disposition: Transfer to [facility] Cosigned by Ronald Schneider DO at 01/23/2024 6:50 PM EDT Associated attestation - Ronald Schneider DO - 01/23/2024 6:50 PM EDT I have personally performed a qvgw-zo-bcsz diagnostic evaluation on this patient on date of service 01/23/24. History, labs, imaging studies, and electronic medical record have been reviewed by me. This note documented by the []Critical Care Fellow [x]ice house supervisor []CRISTO reflects my history, exam, [...] members and physicians, excluding procedures. [facility] Progress Note Nephrology following for ESRD. [...] today did well Please message me through Stockr chat with any questions or concerns. Sean Castaneda MD 01/22/2024 4:22 PM [facility] [address] [place] [address], [address] [place] [address] Office: [phone] ICU Transfer Checklist Transfer Med Reconciliation (resume home meds if able, convert to PO if able) Complete Antibiotics (name, indication, duration, convert to PO if able) None Steroid (indication, duration, convert to PO if able) None Anticipated [place] Medications (ICU initiated) or Dose Changes and [...] therapy) who was initially admitted to the [facility] 01/18 for anemia 2/2 descending colonic [...] Normal [] Scar/Lesion/Mass Inspection of teeth/lips/gums Dentition: [][place] Teeth []Dentures Lips/Gums: [x]Intact []Lesion Present Mucosa: [x]Laton []Moist []Dry Neck: External Appearance Overall Appearance: [...] displayed. ABGs: No results for input(s): PHART, UIE9ESA, PO2ART, SCS9IZI, SO2ART, G6VATUPB in the last 72 hours. Lactic Acid: [...] PO DVT Prophylaxis: SCDs Disposition: Transfer to [facility] Cosigned by Ronald Schneider DO at 01/22/2024 1:39 PM EDT Associated attestation - Ronald Schneider, - 01/22/2024 1:39 PM EDT I have personally performed a giuq-vl-cjjq diagnostic evaluation on this patient on date of service 01/22/24. History, labs, imaging studies, and electronic medical record have been reviewed by me. This note documented by the []Critical Care Fellow [x]ice house supervisor []CRISTO reflects my history, exam, [...] members and physicians, excluding procedures. [facility] Progress Note Nephrology following for ESRD. 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 Strength: Not Performed Nutrition Assessment: Pt with PMH including ESRD on HD (//), HTN, Hx seizures presented to [facility] ED 01/19/24 due to 10 episodes of [...] (kg): 54.4 kg Total Energy Requirements (kcals/day): 8124-7765 Weight Used for Protein Requirements: Current (1.2-1.4 [...] Weight: (112# on 01/08/23, 110# on 08/09/23) [place] Body Weight (lbs) (Calculated): 120 lbs [place] Body Weight (Kg) (Calculated): 55 kg % [place] Body Weight (Calculated): 95 % BMI (kg/m2) [...] inadequate protein-energy intake as evidenced by BMI (zxhvgvtmpfh-lih-jqs) Nutrition Interventions: Food and/or Nutrient Delivery: Continue [...] Nutrition Supplement Maren Warner RD, LD Contact: [phone] or via Stockr chat ICU Progress Note Name: Apoorva Gonzalez [...] Normal [] Scar/Lesion/Mass Inspection of teeth/lips/gums Dentition: [][place] Teeth []Dentures Lips/Gums: []Intact []Lesion Present Mucosa: []Laton []Moist []Dry Neck: External Appearance Overall Appearance: [...] displayed. ABGs: No results for input(s): PHART, BPX9HXL, PO2ART, EFB0BVI, SO2ART, M5RAHAQG in the last 72 hours. Lactic Acid: [...] PM EDT I have personally performed a sppq-rz-ileu diagnostic evaluation on this patient on date of service 01/21/24. History, labs, imaging studies, and electronic medical record have been reviewed by me. This note documented by the []Critical Care Fellow [x]ice house supervisor []CRISTO reflects my history, exam, [...] 73 y.o. female who was admitted to [facility] on 01/18. Pt presented to the ED [...] 73 y.o. female who was admitted to [facility] on 01/19/2024 for GI bleed. - Successful [...] (T//), HTN, Hx seizures who presented to [facility] ED 01/18 due to 10 episodes of [...] Normal [] Scar/Lesion/Mass Inspection of teeth/lips/gums Dentition: [][place] Teeth []Dentures Lips/Gums: []Intact []Lesion Present Mucosa: []Laton []Moist []Dry Neck: External Appearance Overall Appearance: [...] Ischemia: []Present [x]Absent Infection: []Present [x]Absent Extremities ANDRESON Equally: Except ([]RUE []RLE []LUE []LLE) Strength/Tone: [...] -- ABGs: No results for input(s): PHART, DYM8EOC, PO2ART, IZJ6KTS, SO2ART, F3QUAIOB in the last 72 hours. Lactic Acid: [...] --change PO keppra to IV while NPO. SCHOOL GUARD: LILLIE Preferred Method of Communication/Reaching: EPIC. The above physician should be contacted w/ questions/concerns about items being managed by ICU Team. If there are any questions or concerns related to the info in this note please contact the treatment team or the on-call research chief engineer directly. I spent 30 minutes of critical [...] this consult. Signed: Tylor Nelson MD Nephrology [facility] ([facility]) Pager: [phone] Office Office documented in this encounter [facility] 01-25-2024 Plan of care note Problem: Knowledge [...] Goal: Assess Nutritional Intake 01/25/20241715 by Lenka dAkins RN Outcome: Adequate for Discharge 01/25/2024 1006 by Lenka Akdins RN Outcome: Progressing Problem: Pain - Adult [...] 1006 by Lenka Adkins RN Outcome: Progressing [facility] 01-25-2024 Miscellaneous Notes Problem: Knowledge Deficit Goal: [...] Please call the Main Endoscopy Dept at [phone] for questions. Report called to CYNTHIA Og on [facility] Name: Apoorva Gonzalez Procedure Date: 01/25/2024 8:33 AM Gender: Female Date of : 1950 Age: 73 Admit Type: Inpatient Note Status: Finalized Endoscopist: Chrissy Gilman MD, [id number] Procedure: Colonoscopy Indications: Rectal bleeding, Acute post [...] immediate complications. Procedure Code(s): --- Professional --- 85754, Colonoscopy, flexible; diagnostic, including collection of specimen(s) by brushing or washing, when performed (separate procedure) --- Technical --- 78238, Colonoscopy, flexible; diagnostic, including collection of specimen(s) [...] or abscess without bleeding CPT copyright 2021 [employer]. All rights reserved. The codes documented in this report are preliminary and upon advice line rn review may be revised to meet current [...] overnight, iHD per outpatient schedule (T[facility]H/S at [facility]) sheath to be removed and PT/OT evals pending. DCP-home with no anticipated needs. Length of Stay (Days): 2 GMLOS: 4.5 Care Managment Initial Assessment Date: 01/20/2024 Patient Name: Apoorva Gonzalez : 1950 Patient Information Source of Information: Patient Cognition/Language: WFL - Within Functional Limits Permission given to speak with patient renewals representative/caregiver as indicated: Yes Confirmation of Payer with patient/family: Yes Payer Name: [employer] Medicare [place]: No Confirmation of Primary Care Physician: Confirmed [...] Services: Dialysis Type: Hemo Dialysis Provider Name/Location: [facility] Dialysis Schedule: Transportation to Dialysis: drives [...] prescription coverage, drives self to HD at [facility], will have a ride home and denies discharge needs. Christine Ribeiro, CYNTHIA documented in this encounter [facility] 01-25-2024 Hospital Discharge instructions Leticia Collier MD - 01/25/2024 5:14 PM EDT No nsaids,no seeds, avoid constipation Leticia Collier MD - 01/25/2024 5:03 PM EDT Up as able Leticia Collier MD - 01/25/2024 5:03 PM EDT Soft diet documented in this encounter [facility] 01-25-2024 Hospital course Narrative Discharge Summary Apoorva [...] therapy) who was initially admitted to the [facility] 01/18 for anemia 2/2 descending colonic [...] These medications were sent to [id number] - [place], [place] - [address] [facility] [id number] polyethylene glycol (PEG) 3350 17 g packet DIET: Adult diet Dysphagia - Soft and Bite Sized; Low Potassium (Less than 3000 mg/day) ACTIVITY: No restriction. COMPLEXITY OF FOLLOW UP: [] Moderate Complexity: follow up within 7-14 calendar days (64186) [] Severe Complexity: follow up within 7 calendar days (40057) FOLLOW UP TESTING, PENDING RESULTS OR REFERRALS AT TRANSITIONAL CARE VISIT: [] Yes [] No PENDING STUDIES: DISPOSITION: Home FACILITY/HOME CARE AGENCY NAME: Follow up with Roxie Gomez[address] [place] [address] Follow up cbc in 2 days [...] 01/25/2024, 5:06 PM documented in this encounter [facility] 01-25-2024 Nurse Note Patient Name: Apoorva Gonzalez Patient : 1950 Acct: [id number] Date of Admission: 01/19/2024 [facility]: [facility] B Code Status: Full Code Allergies: No [...] - Before each treatment: Dialysis Machine No.: [id number] RO Machine Number: [id number] Dialyzer Lot No.: [id number] Tubing Lot Number: [id number] All Connections Secure: Yes Venous Parameters Set: Yes Arterial Parameters Set: Yes NS Bag: Yes Saline Line Double Clamped: Yes Dialyzer: Nipro Prime Volume (mL): 200 mL RO Machine Number: [id number] RO Machine Log Sheet Completed: Yes Machine Alarm Self Test: Completed, Passed (1250) (01/25/24 1254) Air Foam Detector: Tested, Proper Function, pH Reading Extracorporeal Circuit Tested for Integrity: Yes Machine Conductivity: 13.6 Manual Conductivity: 13.6 Machine Ph: 7 Manual Ph: 7.4 Bleach Test (Neg): Yes Bath Temperature: 36 C (96.8 F) Conductivity Meter Serial #: [id number] Machine Functioning Alarm Free? Yes Dialysis Bath: K+ (Potassium): 2 Ca+ (Calcium): 2.5 Na+ (Sodium): 137 HCO3 (Bicarb): 32 Bicarbonate Concentrate Lot No.: [id number] Acid Concentrate Lot No.: [id number] Chlorine Testing - Before each treatment and [...] Tools: Explanation Response to Education: Verbalized Understanding [facility] 01-25-2024 Nurse Note Patient Name: Apoorva Gonzalez Patient : 1950 Acct: [id number] Date of Admission: 01/19/2024 [facility] B Code Status: Full Code Allergies: No [...] - Before each treatment: Dialysis Machine No.: [id number] RO Machine Number: [id number] Dialyzer Lot No.: [id number] Tubing Lot Number: [id number] All Connections Secure: Yes Venous Parameters Set: Yes Arterial Parameters Set: Yes NS Bag: Yes Saline Line Double Clamped: Yes Dialyzer: Nipro Prime Volume (mL): 200 mL RO Machine Number: [id number] RO Machine Log Sheet Completed: Yes Machine Alarm Self Test: Completed, Passed (1250) (01/25/24 1254) Air Foam Detector: Tested, Proper Function, pH Reading Extracorporeal Circuit Tested for Integrity: Yes Machine Conductivity: 13.6 Manual Conductivity: 13.6 Machine Ph: 7 Manual Ph: 7.4 Bleach Test (Neg): Yes Bath Temperature: 36 C (96.8 F) Conductivity Meter Serial #: [id number] Machine Functioning Alarm Free? Yes Dialysis Bath: K+ (Potassium): 2 Ca+ (Calcium): 2.5 Na+ (Sodium): 137 HCO3 (Bicarb): 32 Bicarbonate Concentrate Lot No.: [id number] Acid Concentrate Lot No.: [id number] Chlorine Testing - Before each treatment and [...] Education: Verbalized Understanding Patient arrived from room [facility], Dr. Suárez in to speak with the [...] message with any questions. Radha Lopes RN, [facility] Patient Name: Apoorva Gonzalez Patient : 1950 Acct: [id number] Date of Admission: 01/19/2024 Room/Bed: T1-126/T1-126 A [...] (0) 3 Regular None (Room air) Clear [place] Warm;Dry Good Soft;Rounded Active Other (Comment) None [...] - Before each treatment: Dialysis Machine No.: [id number] RO Machine Number: [id number] Dialyzer Lot No.: [id number] Tubing Lot Number: [id number] All Connections Secure: Yes Venous Parameters Set: Yes Arterial Parameters Set: Yes NS Bag: Yes Saline Line Double Clamped: Yes Dialyzer: Nipro Prime Volume (mL): 200 mL RO Machine Number: [id number] RO Machine Log Sheet Completed: Yes Machine Alarm Self Test: Completed, Passed (01/22/241536) Air Foam Detector: pH Reading Extracorporeal Circuit Tested for Integrity: Yes Machine Conductivity: 13.7 Manual Conductivity: 13.8 Machine Ph: 7 Manual Ph: 7.6 Bleach Test (Neg): Yes Bath Temperature: 36 C (96.8 F) Conductivity Meter Serial #: [id number] Machine Functioning Alarm Free? Yes Dialysis Bath: K+ (Potassium): 2 Ca+ (Calcium): 2.5 Na+ (Sodium): 137 HCO3 (Bicarb): 32 Bicarbonate Concentrate Lot No.: [id number] Acid Concentrate Lot No.: [id number] Chlorine Testing - Before each treatment and [...] Name: Apoorva Gonzalez Patient : 1950 Acct: [id number] Date of Admission: 01/19/2024 Room/Bed: T1-126/T1-126 A [...] (0) 3 Regular None (Room air) Clear [place] Warm;Dry;No swelling Soft Active -- -- -- [...] - Before each treatment: Dialysis Machine No.: [id number] Machine Number: [id number] Dialyzer Lot No.: [id number] Tubing Lot Number: [id number] All Connections Secure: Yes Venous Parameters Set: Yes Arterial Parameters Set: Yes NS Bag: Yes Saline Line Double Clamped: Yes Dialyzer: Nipro Prime Volume (mL): 200 mL RO Machine Number: [id number] RO Machine Log Sheet Completed: Yes Machine Alarm Self Test: Completed, Passed (2325) (01/20/24 1445) Air Foam Detector: pH Reading, Proper Function, Tested Extracorporeal Circuit Tested for Integrity: Yes Machine Conductivity: 13.8 Manual Conductivity: 13.7 Machine Ph: 7 Manual Ph: 7 Bleach Test (Neg): Yes Bath Temperature: 36 C (96.8 F) Conductivity Meter Serial #: [id number] Machine Functioning Alarm Free? Yes Dialysis Bath: [...] vitals (Patient's BP dropped to 66/40 (47), wood lathe operator immediately stopped pulling fluid. BP started coming back up. Patient also became nauseated, dizzy, and having abdominal cramping. Dr. Richardson to see patient.) Provider Name: Dr. Richardson Provider Role: Resident Method of Communication: Call Response: En route Notification Time: 1635 Shift Event: Fall Reason for Communication: Abnormal vitals (Patient's BP dropped to 66/40 (47), wood lathe operator immediately stopped pulling fluid. BP started coming [...] monitors were placed. documented in this encounter [facility] 01-25-2024 Plan of care note Problem: Problem Interventions Goal: Assess Nutritional Intake Outcome: Progressing Problem: Pain - Adult Goal: Verbalizes/displays adequate comfort level or baseline comfort level Outcome: Progressing Problem: Discharge Planning Goal: Discharge to home or other facility with appropriate resources Outcome: Progressing [facility] 01-25-2024 Note Formatting of this n ote might be different from the original. POST ENDOSCOPY PROCEDURE TRANSFER REPORT Physician: Procedure completed: colonoscopy Specimens obtained: n/a Medications administered: see anesthesia note Findings: see physician's note Complications: n/a Please call the Main Endoscopy Dept at [phone] for questions. Report called to CYNTHIA Og on 6W. [facility] 01-25-2024 Note Formatting of this n ote might be different from the original. POST ENDOSCOPY PROCEDURE TRANSFER REPORT Physician: Procedure completed: colonoscopy Specimens obtained: n/a Medications administered: see anesthesia note Findings: see physician's note Complications: n/a Please call the Main Endoscopy Dept at [phone] for questions. Report called to CYNTHIA Og on 6W. [facility] 01-25-2024 Note Formatting of this n ote might be different from the original. [facility] Name: Apoorva Gonzalez Procedure Date: 01/25/2024 8:33 AM Gender: Female Date of : 1950 Age: 73 Admit Type: Inpatient Note Status: Finalized Endoscopist: Chrissy Gilman MD, [id number] Procedure: Colonoscopy Indications: Rectal bleeding, Acute post [...] immediate complications. Procedure Code(s): --- Professional --- 84909, Colonoscopy, flexible; diagnostic, including collection of specimen(s) by brushing or washing, when performed (separate procedure) --- Technical --- 71887, Colonoscopy, flexible; diagnostic, including collection of specimen(s) [...] or abscess without bleeding CPT copyright 2021 [employer]. All rights reserved. The codes documented in this report are preliminary and upon advice line rn review may be revised to meet current compliance requirements. Chrissy Gilman MD 01/25/2024 10:02:22 AM This report has been signed electronically. Number of Addenda: 0 Note Initiated On: 01/25/2024 8:33 AM [employer] Work Phone: 01-25-2024 Note Formatting of this n ote might be different from the original. [facility] Patient Name: Apoorva Gonzalez Procedure Date: 01/25/2024 8:33 AM Gender: Female Date of : 1950 Age: 73 Admit Type: Inpatient Note Status: Finalized Endoscopist: Chrissy Gimlan MD, [id number] Procedure: Colonoscopy Indications: Rectal bleeding, Acute post [...] immediate complications. Procedure Code(s): --- Professional --- 22441, Colonoscopy, flexible; diagnostic, including collection of specimen(s) by brushing or washing, when performed (separate procedure) --- Technical --- 39915, Colonoscopy, flexible; diagnostic, including collection of specimen(s) [...] or abscess without bleeding CPT copyright 2021 [employer]. All rights reserved. The codes documented in this report are preliminary and upon advice line rn review may be revised to meet current compliance requirements. Chrissy Gilman MD 01/25/2024 10:02:22 AM This report has been signed electronically. Number of Addenda: 0 Note Initiated On: 01/25/2024 8:33 AM T [facility] [employer] Work Phone: 01-25-2024 Plan of care note [...] Goal: Free from fall injury Outcome: Progressing [facility] 01-24-2024 Note Formatting of this n ote might be different from the original. Spoke with Dr Collier-patients admitting team-ordered patient to have 10mg hydralazine q6 for SBP>160 [facility] 01-24-2024 Note Formatting of this n ote might be different from the original. Spoke with Dr Collier-patients admitting team-ordered patient to have 10mg hydralazine q6 for SBP>160 T [facility] 01-24-2024 Note Formatting of this n ote might be different from the original. Dr Glynn paged regarding post procedure BP's. [facility] 01-24-2024 Note Formatting of this n ote might be different from the original. Dr Glynn pagebela regarding post procedure BP's. [facility] 10-21-2024 Nurse Note Patient arrived from room [facility], Dr. Suárez in to speak with the patient regarding mesenteric embo, consent obtained. Patient was placed supine on exam table prepped and draped in sterile fashion. Telemetry monitors placed, conscious sedation administered. Patient tolerated procedure well. Transfer back to room. [employer] 01-24-2024 Note Formatting of this n ote [...] notified. PARK Baker CNP 01/24/2024 1:51 PM [employer] Work Phone: 01-24-2024 Note Formatting of this [...] notified. PARK Baker CNP 01/24/2024 1:51 PM [employer] Phone: 01-24-2024 Plan of care note Problem: Pain - Adult Goal: Verbalizes/displays adequate comfort level or baseline comfort level Outcome: Progressing Problem: Safety - Adult Goal: Free from fall injury Outcome: Progressing Problem: Chronic Conditions and Co-morbidities Goal: Patient's chronic conditions and co-morbidity symptoms are monitored and maintained or improved Outcome: Progressing T [facility] 01-24-2024 Note Formatting of this n ote might be different from the original. Chart reviewed. Patient transferred from ICU to med/surg floor 01/22. +increased bloody bowel movements over night with Hgb 6.4 this AM. Patient received 1U PRBC. Nuclear med bleeding scan today. Current discharge plan is home once medically stable. TCC to continue to follow. T [facility] 01-24-2024 Note Formatting of this n ote might be different from the original. Chart reviewed. Patient transferred from ICU to med/surg floor 01/22. +increased bloody bowel movements over night with Hgb 6.4 this AM. Patient received 1U PRBC. Nuclear med bleeding scan today. Current discharge plan is home once medically stable. TCC to continue to follow. T [facility] 01-24-2024 Nurse Note Wound Care consulted for Pressure Injury Prevention. Pt's Arnol= 22, pt is no longer at risk. Skin Care Precaution order set in place. Dietitian consult in place. Will continue to follow peripherally. Please voicera or secure chat message with any questions. Radha Lopes RN, [facility] 01-23-2024 Plan of care note Problem: Knowledge [...] Interventions Goal: Assess Nutritional Intake Outcome: Progressing [facility] 01-23-2024 Plan of care note Problem: Potential for Compromised Skin Integrity Goal: Skin Integrity is Maintained or Improved Outcome: Progressing Problem: Potential for Compromised Skin Integrity Goal: Nutritional status is improving Outcome: Progressing Problem: Urinary Incontinence Goal: Perineal skin integrity is maintained or improved Outcome: Progressing T [facility] 01-23-2024 Consult note Associated Order (s): IP [...] History of blood transfusion 02/27/2022 Hypertension Seizure ([facility]) Past Surgical History: Social History [...] Jo MD at 01/24/2024 11:46 AM EDT [facility] [employer] 01-23-2024 Consult note Associated Order (s): IP [...] Date Chronic kidney disease (CKD) Hemodialysis patient ([facility]/HCC) (HCC) History of blood transfusion 02/27/2022 Hypertension Seizure ([facility]) Past Surgical History: Social History [...] Order(s): IP CONSULT TO NEPHROLOGY [facility] [address] [place] [address] Consult Note Patient's Name: Apoorva [...] place. Patient is TTS HD patient at [facility], with Dr. Meza as outpatient inside polisher. Patient denied SOB. Past Medical History: Diagnosis Date Chronic kidney disease (CKD) Hemodialysis patient (CMS/HCC) (HCC) Wednesday, , Wednesday History of blood transfusion 02/27/2022 Hypertension Seizure (HCC) Developed seizure-like activity on 02/24 during hospital admission Past Surgical History: Procedure Laterality Date AV FISTULA PLACEMENT Left 08/07/2022 IR CVC TUNNELED DIALYSIS CATHETER PLACEMENT 02/27/2022 IR CVC TUNNELED CATHETER PLACEMENT 02/27/2022 Candis Andrade MD [facility] SPECIAL PROCEDURES Family History Problem Relation Name [...] as documented in his note. Please call [phone] or message me through [employer] with any questions or concerns. Images from the original note were not included. Internal Medicine: MICU Initial Consult Name: Apoorva Gonzalez : 1950(73 y.o.) Date: 01/20/24 Attending: Dr. Delgado Subjective: Chief Complaint: Rectal bleeding HPI: Apoorva Gonzalez is a 73 y.o. F with a PMHx significant for ESRD on HD (T//), HTN, Hx seizures, who presented to [facility] ED on 01/19/2024 due to 10 episodes [...] Date Chronic kidney disease (CKD) Hemodialysis patient ([facility]) ([facility]) Wednesday, , Wednesday History of blood transfusion 02/27/2022 Hypertension Seizure ([facility]) Developed seizure-like activity on 02/24 [...] Normal [] Scar/Lesion/Mass Inspection of teeth/lips/gums Dentition: [][place] Teeth []Dentures Lips/Gums: [x]Intact []Lesion Present Mucosa: [x]Laton [x]Moist []Dry Neck: External Appearance Overall Appearance: [...] 16.7* ABGs: No results for input(s): PHART, PEW5LUE, PO2ART, OEI9COJ, SO2ART, K2CHUJIJ in the last 72 hours. Lactic Acid: [...] ESRD on iHD, HTN who presented to [facility] ED with complaints of BRBPR. She was [...] family and physicians. documented in this encounter [facility] 01-23-2024 Plan of care note The patient is Moderately Stable - Low risk of patient condition declining or worsening [facility] 01-22-2024 Nurse Note Patient Name: Apoorva Gonzalez Patient : 1950 Acct: [id number] Date of Admission: 01/19/2024 Room/Bed: T1126/[facility] A Code Status: DNR-CCA Allergies: No [...] (0) 3 Regular None (Room air) Clear [place] Warm;Dry Good Soft;Rounded Active Other (Comment) None [...] - Before each treatment: Dialysis Machine No.: [id number] RO Machine Number: [id number] Dialyzer Lot No.: [id number] Tubing Lot Number: [id number] All Connections Secure: Yes Venous Parameters Set: Yes Arterial Parameters Set: Yes NS Bag: Yes Saline Line Double Clamped: Yes Dialyzer: Nipro Prime Volume (mL): 200 mL RO Machine Number: [id number] RO Machine Log Sheet Completed: Yes Machine Alarm Self Test: Completed, Passed (01/22/241536) Air Foam Detector: pH Reading Extracorporeal Circuit Tested for Integrity: Yes Machine Conductivity: 13.7 Manual Conductivity: 13.8 Machine Ph: 7 Manual Ph: 7.6 Bleach Test (Neg): Yes Bath Temperature: 36 C (96.8 F) Conductivity Meter Serial #: [id number] Machine Functioning Alarm Free? Yes Dialysis Bath: K+ (Potassium): 2 Ca+ (Calcium): 2.5 Na+ (Sodium): 137 HCO3 (Bicarb): 32 Bicarbonate Concentrate Lot No.: [id number] Acid Concentrate Lot No.: [id number] Chlorine Testing - Before each treatment and [...] Explanation Response to Education: Verbalized Understanding T [facility] 01-22-2024 Plan of care note Problem: Knowledge [...] Interventions Goal: Assess Nutritional Intake Outcome: Progressing [facility] 01-21-2024 Plan of care note Problem: Knowledge [...] Interventions Goal: Assess Nutritional Intake Outcome: Progressing [facility] 01-21-2024 Note Formatting of this n ote might be different from the original. Care Management Progress Note Patient remains in CTV ICU with GI bleed/acute blood anemia. VSS, on RA, in NSR on tele, transfused PRBC again overnight, iHD per outpatient schedule (T/H/S at [facility]) sheath to be removed and PT/OT evals pending. DCP-home with no anticipated needs. Length of Stay (Days): 2 GMLOS: 4.5 [facility] 01-21-2024 Note Formatting of this n ote might be different from the original. Care Management Progress Note Patient remains in CTV ICU with GI bleed/acute blood anemia. VSS, on RA, in NSR on tele, transfused PRBC again overnight, iHD per outpatient schedule (T/H/S at [facility]) sheath to be removed and PT/OT evals pending. DCP-home with no anticipated needs. Length of Stay (Days): 2 GMLOS: 4.5 [facility] 01-20-2024 Nurse Note Patient Name: Apoorva Gonzalez Patient : 1950 Acct: [id number] Date of Admission: 01/19/2024 Room/Bed: T1-126/T1-126 A [...] (0) 3 Regular None (Room air) Clear [place] Warm;Dry;No swelling Soft Active -- -- -- [...] - Before each treatment: Dialysis Machine No.: [id number] RO Machine Number: [id number] Dialyzer Lot No.: [id number] Tubing Lot Number: [id number] [employer] Conne[employer] Secure: Yes Venous Parameters Set: Yes Arterial Parameters Set: Yes NS Bag: Yes Saline Line Double Clamped: Yes Dialyzer: Nipro Prime Volume (mL): 200 mL RO Machine Number: [id number] RO Machine Log Sheet Completed: Yes Machine Alarm Self Test: Completed, Passed (1445) (01/20/24 1445) Air Foam Detector: pH Reading, Proper Function, Tested Extracorporeal Circuit Tested for Integrity: Yes Machine Conductivity: 13.8 Manual Conductivity: 13.7 Machine Ph: 7 Manual Ph: 7 Bleach Test (Neg): Yes Bath Temperature: 36 C (96.8 F) Conductivity Meter Serial #: [id number] Machine Functioning Alarm Free? Yes Dialysis Bath: [...] vitals (Patient's BP dropped to 66/40 (47), wood lathe operator immediately stopped pulling fluid. BP started coming back up. Patient also became nauseated, dizzy, and having abdominal cramping. Dr. Richardson to see patient.) Provider Name: Dr. Richardson Provider Role: Resident Method of Communication: Call Response: En route Notification Time: 1635 Shift Event: Fall Reason for Communication: Abnormal vitals (Patient's BP dropped to 66/40 (47), wood lathe operator immediately stopped pulling fluid. BP started coming [...] Tools: Explanation Response to Education: Verbalized Understanding [facility] [employer] 01-20-2024 Note Formatting of this n ote might be different from the original. Care Managment Initial Assessment Date: 01/20/2024 Patient Name: Apoorva Gonzalez : 1950 Patient Information Source of Information: Patient Cognition/Language: WFL - Within Functional Limits Permission given to speak with patient renewals representative/caregiver as indicated: Yes Confirmation of Payer [...] Services: Dialysis Type: Hemo Dialysis Provider Name/Location: [facility] Dialysis Schedule: /WED Transportation to Dialysis: [...] prescription coverage, drives self to HD at [facility], will have a ride home and denies discharge needs. Christine Ribeiro RN T [facility] [employer] 01-20-2024 Note Formatting of this n ote might be different from the original. Care Managment Initial Assessment Date: 01/20/2024 Patient Name: Apoorva Gonzalez : 1950 Patient Information Source of Information: Patient Cognition/Language: WFL - Within Functional Limits Permission given to speak with patient renewals representative/caregiver as indicated: Yes Confirmation of Payer [...] Services: Dialysis Type: Hemo Dialysis Provider Name/Location: [facility] Dialysis Schedule: /WED Transportation to Dialysis: [...] prescription coverage, drives self to HD at [facility], will have a ride home and denies discharge needs. Christine Ribeiro RN T [facility] 01-20-2024 Consult note Associated Order (s): IP CONSULT TO NEPHROLOGY [facility] [address] [place], [place] [id number] Consult Note Patient's Name: Apoorva Gonzalez 9:14 AM 01/20/2024 Reason for Consult: ESRD History of Present Ilness: Apoorva Gonzalez is a 73 y.o. female with hx including ESRD, HTN, seizure who presented with blood in stool. Went to IR, but embolization was not done due to no active bleeding, femoral artery sheath was left in place. Patient is TTS HD patient at [facility], with Dr. Meza as outpatient inside polisher. Patient denied SOB. Past Medical History: Diagnosis Date Chronic kidney disease (CKD) Hemodialysis patient (CMS/HCC) (HCC) Wednesday, , Wednesday History of blood transfusion 02/27/2022 Hypertension Seizure ([facility]) Developed seizure-like activity on 02/24 during hospital admission Past Surgical History: Procedure Laterality Date AV FISTULA PLACEMENT Left 08/07/2022 IR CVC TUNNELED DIALYSIS CATHETER PLACEMENT 02/27/2022 IR CVC TUNNELED CATHETER PLACEMENT 02/27/2022 Candis Andrade MD [facility] PROCEDURES Family History Problem Relation Name [...] 01/20/2024 0914 Last data filed at 01/19/2024 4432 Gross per 24 hour Intake 430 ml [...] as documented in his note. Please call [phone] or message me through [employer] with any questions or concerns. [facility] 01-20-2024 Consult note Formatting of th is [...] (T//S), HTN, Hx seizures, who presented to [facility] ED on 01/19/2024 due to 10 episodes [...] TUNNELED CATHETER PLACEMENT 02/27/2022 Candis Andrade MD [facility] SPECIAL PROCEDURES Family History Problem Relation Name [...] by mouth daily. 03/02/22 08/26/22 Evan Joshua, MACHINE CLERICAL VERIFIER - MACROECONOMICS PROFESSOR omega-3 (Fish Oil) 1000 MG capsule Take [...] Normal [] Scar/Lesion/Mass Inspection of teeth/lips/gums Dentition: [][place] Teeth []Dentures Lips/Gums: [x]Intact []Lesion Present Mucosa: [x]Laton [x]Moist []Dry Neck: External Appearance Overall Appearance: [...] 16.7* ABGs: No results for input(s): PHART, NKM6DJP, PO2ART, IMD5ZYL, SO2ART, J7ERUKXL in the last 72 hours. Lactic Acid: [...] ESRD on iHD, HTN who presented to [facility] ED with complaints of BRBPR. She was [...] other team members, patient's family and physicians. [facility] [employer] Work Phone: 01-19-2024 Nurse Note Patient tolerated the procedure well. Transfer to T126 following the procedure. [facility] 01-19-2024 History and physical note Attending History [...] Division of Hospitalist Medicine Inpatient Medical Services/[facility] [employer] Phone: 01-19-2024 History and physical note Attending [...] DO Division of Hospitalist Medicine Inpatient Medical Services/[facility] [place] documented in this encounter [facility] 01-19-2024 Nurse Note Patient arrived from the emergency department for mesenteric angiogram with possible intervention. Dr. Whatleyu in to speak with the patient regarding the procedure, and consent was obtained. Patient's lab values and allergies were reviewed. Patient was placed supine on exam table, prepped and draped in sterile fashion. Telemetry monitors were placed. [facility] 01-19-2024 Emergency department Note Patient in no apparent distress. Respirations equal and nonlabored. Lala Ni RN 01/19/24 3619 [facility] 01-19-2024 Emergency department Note Patient in no [...] ED provider notified Tyra Garcia RN 01/19/24 6592 EMERGENCY DEPARTMENT ENCOUNTER Pt Name: Apoorva Gonzalez [...] Date Chronic kidney disease (CKD) Hemodialysis patient ([facility]/HCC) (HCC) Wednesday, , Wednesday History of blood transfusion 02/27/2022 Hypertension Seizure (HCC) Developed seizure-like activity on 02/24 during hospital admission SURGICAL HISTORY Past Surgical History: Procedure Laterality Date AV FISTULA PLACEMENT Left 08/07/2022 IR CVC TUNNELED DIALYSIS CATHETER PLACEMENT 02/27/2022 IR CVC TUNNELED CATHETER PLACEMENT 02/27/2022 Candis Andrade MD [facility] SPECIAL PROCEDURES CURRENT MEDICATIONS Previous Medications AMLODIPINE [...] AND HEMATOCRIT, BLOOD PREPARE RBC PRODUCT CODE [id number] Unit Number [id number] Unit ABO O Unit RH POS Crossmatch interpretation COMP Dispense Status Transfused Blood Expiration Date Product Blood Type 5100 Unit Volume 300 PRODUCT CODE [id number] Unit Number [id number] Unit ABO O Unit RH POS Crossmatch [...] Kaur DO 01/19/242318 documented in this encounter [facility] 01-19-2024 Emergency department Note Patient in IR at this time. Lala Ni RN 01/19/242209 [facility] 01-19-2024 Emergency department Note Patients 15 minute samra for vitals not documented as patient was being transported to IR. Lala Ni RN 01/19/242209 [facility] 01-19-2024 Emergency department Note Second unit of blood started at 600 mLs/hr per Dr Kaur. Pt being transported to IR by CYNTHIA Reeves. Olivia Rodgers RN 01/19/242150 [facility] 01-19-[address] Kaur called IR to do procedure. Blood transfusion going at 300 mLs an hour per Dr Kaur. Pt changed up again and large clots and blood noted. Olivia Rodgers RN 01/19/242126 [facility] 01-19-2024 Emergency department Note Report to Olivia Camejo RN 01/19/24 1924 [facility] 01-19-2024 Emergency department Note Pt taken to CT scan. Dr Kaur made aware pt had another large passing of blood clots. Order to be received for blood tranfusion Tameka Camejo RN 01/19/24 1905 [facility] 01-19-2024 Emergency department Note Trauma float at bedside for ultrasound IV Tameka Camejo RN 01/19/24 1808 [facility] 01-19-2024 Emergency department Note Large clots noted from pts rectum. States she has been bleeding and having clots since this morning. Denies being on a blood thinner. Does not have any abd pain but has pressure when having a bowel movement. Provider called to bedside for assessment Tameka Camejo RN 01/19/24 1740 T [facility] 01-19-2024 Emergency department Note Patient was in [...] ED provider notified Tyra Garcia RN 01/19/24 3191 [facility] 01-19-2024 Physician Emergency department Note EMERGENCY DEPARTMENT [...] Date Chronic kidney disease (CKD) Hemodialysis patient ([facility]) ([facility]) Wednesday, , Wednesday History of blood transfusion 02/27/2022 Hypertension Seizure ([facility]) Developed seizure-like activity on 02/24 during hospital admission SURGICAL HISTORY Past Surgical History: Procedure Laterality Date AV FISTULA PLACEMENT Left 08/07/2022 IR CVC TUNNELED DIALYSIS CATHETER PLACEMENT 02/27/2022 IR CVC TUNNELED CATHETER PLACEMENT 02/27/2022 Candis Andrade MD [facility] SPECIAL PROCEDURES CURRENT MEDICATIONS Previous Medications AMLODIPINE [...] Physically Abused: No Sexually Abused: No SCREENINGS Tovey Coma Scale Best Eye Response: Spontaneous Best Verbal Response: Oriented Best Motor Response: Follows commands Tovey Coma Scale Score: 15 PHYSICAL EXAM ED [...] [facility] (Per Emergency Physician): Interpretation per the [...] AND HEMATOCRIT, BLOOD PREPARE RBC PRODUCT CODE [id number] Unit Number [id number] Unit ABO O Unit RH POS Crossmatch interpretation COMP Dispense Status Transfused Blood Expiration Date Product Blood Type 5100 Unit Volume 300 PRODUCT CODE [id number] Unit Number [id number] Unit ABO O Unit RH POS Crossmatch [...] DO 01/19/242127 Brown Kaur DO 01/19/24 2319 [facility] 08-09-2023 Emergency department Note Pt remains in dialysis Regi Galdamez RN 08/09/23 1901 [facility] 08-09-2023 Emergency department Note Pt remains in dialysis Regi Galdamez RN 08/09/23 1901 Lab called with potassium 6.1 with no hemolysis, same reported to Dr. Velasquez via secure chat Jenn Adams RN 08/09/23 1650 Pt taken to dialysis Regi Galdamez RN 08/09/23 1638 documented in this encounter [facility] 08-09-2023 Nurse Note Patient Name: Apoorva Gonzalez Patient : 1950 Acct: [id number] Date of Admission: 08/09/2023 Room/Bed: Code Status: [...] Time out performed prior to access at 8535. Report Received from Primary RN at 3045. Primary RN (First Initial, Last Name, Title): [...] - Before each treatment: Dialysis Machine No.: [id number] Machine Number: [id number] Dialyzer Lot No.: [id number] Tubing Lot Number: [id number] All Connections Secure: Yes Venous Parameters Set: Yes Arterial Parameters Set: Yes NS Bag: Yes Saline Line Double Clamped: Yes Dialyzer: Revaclear 300 Prime Volume (mL): 200 mL RO Machine Number: [id number] RO Machine Log Sheet Completed: Yes Machine Alarm Self Test: Completed, Passed (08/09/231614) Air Foam Detector: Tested, Proper Function, pH Reading Extracorporeal Circuit Tested for Integrity: Yes Machine Conductivity: 13.6 Manual Conductivity: 13.6 Manual Ph: 7 Bleach Test (Neg): Yes Bath Temperature: 36 C (96.8 F) Conductivity Meter Serial #: [id number] Machine Functioning Alarm Free? Yes Dialysis Bath: [...] Tools: Demonstration Response to Education: Verbalized Understanding [facility] 08-09-2023 Nurse Note Patient Name: Apoorva Gonzalez Patient : 1950 Acct: [id number] Date of Admission: 08/09/2023 Room/Bed: Code Status: [...] - Before each treatment: Dialysis Machine No.: [id number] RO Machine Number: [id number] Dialyzer Lot No.: [id number] Tubing Lot Number: [id number] All Connections Secure: Yes Venous Parameters Set: Yes Arterial Parameters Set: Yes NS Bag: Yes Saline Line Double Clamped: Yes Dialyzer: Revaclear 300 Prime Volume (mL): 200 mL RO Machine Number: [id number] RO Machine Log Sheet Completed: Yes Machine Alarm Self Test: Completed, Passed (08/09/231614) Air Foam Detector: Tested, Proper Function, pH Reading Extracorporeal Circuit Tested for Integrity: Yes Machine Conductivity: 13.6 Manual Conductivity: 13.6 Manual Ph: 7 Bleach Test (Neg): Yes Bath Temperature: 36 C (96.8 F) Conductivity Meter Serial #: [id number] Machine Functioning Alarm Free? Yes Dialysis Bath: [...] Education: Verbalized Understanding documented in this encounter [facility] 08-09-2023 Emergency department Note Lab called with potassium 6.1 with no hemolysis, same reported to Dr. Velasquez via secure chat Jenn Adams RN 08/09/23 1650 [facility] 08-09-2023 Emergency department Note Pt taken to dialysis Regi Galdamez RN 08/09/23 1638 [facility] 08-09-2023 Consult note Formatting of th is note is different from the original. [facility] [address] [place] [address] Consult Note Patient's Name: Apoorva Gonzalez 4:37 PM 08/09/2023 History of Present Ilness: Apoorva Gonzalez is a 73 y.o. female with hx including ESRD, is TTS HD patient at [facility] Rosalino Gaitan. Dr. Meza is outpatient inside polisher. Was found to have 8.0K on outpatient labwork on 08/06 (likely collected prior to HD that day). Was referred to ER in relation to hyperkalemia. Denied SOB. Past Medical History: Diagnosis Date Chronic kidney disease (CKD) Hemodialysis patient (CMS/HCC) (HCC) Wednesday, , Wednesday History of blood transfusion 02/27/2022 Hypertension Seizure ([facility]) Developed seizure-like activity on 02/24 [...] as documented in his note. Please call [phone] or message me through [employer] with any questions or concerns. [employer] Phone: 08-09-2023 Consult note Formatting of th is note is different from the original. [facility] [address] [place] [address] Consult Note Patient's Name: Apoorva Gonzalez 4:37 PM 08/09/2023 History of Present Ilness: Apoorva Gonzalez is a 73 y.o. female with hx including ESRD, is TTS HD patient at [facility]. Dr. Meza is outpatient inside polisher. Was found to have 8.0K on outpatient [...] as documented in his note. Please call [phone] or message me through [employer] with any questions or concerns. documented in this encounter [facility] 03-03-2023 Emergency department Note Pt discharged to home alert by CRISTO Rocha Tracey L. Harper, RN 03/03/23 105 [facility] 03-03-2023 Emergency department Note Pt discharged to home alert by CRISTO Rocha, Essie Ward RN 03/03/23 105 Emergency Department Encounter [facility] EMERGENCY DEPT Patient: Apoorva Gonzalez : 1950 [...] History of blood transfusion 02/27/2022 Hypertension Seizure ([facility]) Developed seizure-like activity on 02/24 [...] Procedures FINAL IMPRESSION 1. ESRD on hemodialysis ([facility]) ([facility]) DISPOSITION Discharge 03/03/2023 10:40:48 AM PATIENT REFERRED TO: Christiano Grove [facility] [facility] [address] DISCHARGE MEDICATIONS: Discharge Medication List as of [...] Angel 03/03/23 1108 documented in this encounter [facility] 03-03-2023 Hospital Discharge instructions FREDI Del Angel [...] or worsening symptoms. documented in this encounter [facility] 03-03-2023 Physician Emergency department Note Emergency Department Encounter [facility] EMERGENCY DEPT Patient: Apoorva Gonzalez : 1950 [...] [employer] Balta Wang MD 03/03/23 1055 [employer] Phone: 03-03-2023 Physician Emergency department Note EMERGENCY [...] History of blood transfusion 02/27/2022 Hypertension Seizure ([facility]) Developed seizure-like activity on 02/24 [...] Procedures FINAL IMPRESSION 1. ESRD on hemodialysis ([facility]) ([facility]) DISPOSITION Discharge 03/03/2023 10:40:48 AM PATIENT REFERRED TO: Christiano Grove DO [address] [facility] [id number] DISCHARGE MEDICATIONS: Discharge Medication List as of [...] Medicine Provider FREDI Del Angel 03/03/23 1108 [facility] 10-01-2022 Emergency department Note Wound care completed. Ordered treatment completed. Patient discharged without any issues. Patient has a copy dc papers and verbalizes understanding. All questions answered. Nickie Pizarro LPN 10/01/22 2686 [facility] 10-01-2022 Emergency department Note Wound care completed. Ordered treatment completed. Patient discharged without any issues. Patient has a copy dc papers and verbalizes understanding. All questions answered. Nickie Pizarro LPN 10/01/22 1405 Emergency Department Encounter [facility] EMERGENCY DEPT Patient: Apoorva Gonzalez : 1950 [...] for clarification.) Mak Hilario MD Acute Care [facility] Mak Hilario MD 10/01/221947 Images from the [...] Date Chronic kidney disease (CKD) Hemodialysis patient ([facility]/HCC) ([facility]) Wednesday, , Wednesday History of blood transfusion 02/27/2022 Hypertension Seizure ([facility]) Developed seizure-like activity on 02/24 [...] REFERRED TO: Christiano Grove DO [address] [facility] [address] Schedule an appointment as soon as possible for a visit [facility] DEPT [address] [place] [phone] Go to If symptoms worsen DISCHARGE [...] Sampson 10/01/22 1345 documented in this encounter [facility] 10-01-2022 Hospital Discharge instructions FREDI Sampson - 10/01/2022 1:44 PM EDT Follow-up your primary care doctor and return to the ER if you experience any worsening symptoms. documented in this encounter [facility] 10-01-2022 Physician Emergency department Note Emergency Department Encounter [facility] EM[facility]GENC[facility] DEPT Patient: Apoorva Gonzalez : 1950 [...] for clarification.) Mak Hilario MD Acute Care [facility] Mak Hilario MD 10/01/221947 [employer] Phone: 10-01-2022 Physician Emergency department Note Images [...] History of blood transfusion 02/27/2022 Hypertension Seizure ([facility]) Developed seizure-like activity on 02/24 during hospital admission SURGICAL HISTORY Past Surgical History: Procedure Laterality Date AV FISTULA PLACEMENT Left 08/07/2022 IR CVC TUNNELED DIALYSIS CATHETER PLACEMENT 02/27/2022 IR CVC TUNNELED CATHETER PLACEMENT 02/27/2022 Candis Andrade MD [facility] PROCEDURES CURRENT MEDICATIONS Previous Medications AMLODIPINE [...] REFERRED TO: Christiano Grove DO [address] [facility] [address] Schedule an appointment as soon as possible for a visit [facility] DEPT [address] [place] [phone] Go to If symptoms worsen DISCHARGE [...] signed) Emergency Medicine Provider FREDI Sampson 10/01/22 3739 [facility] 10-01-2022 Note Formatting of this n ote might be different from the original. Dwain, nurse from [facility] called d/t to patient having tunneled dialysis [...] her physician and/or be seen emergency dept. [facility] 10-01-2022 Miscellaneous Notes Dwain nurse from [facility] called d/t to patient having tunneled dialysis [...] seen emergency dept. documented in this encounter [facility] 09-30-2022 Nurse Note Tunneled HD catheter cleansed with betadine and removed from pt RIJ. 14fr x 24cm. Pt followed breathing instructions and tolerated well. Pressure held x10 min. Discharged home with all belongings, steady, independent gait. [facility] 09-30-2022 Nurse Note Tunneled HD catheter cleansed with betadine and removed from pt RIJ. 14fr x 24cm. Pt followed breathing instructions and tolerated well. Pressure held x10 min. Discharged home with all belongings, steady, independent gait. documented in this encounter [facility] 08-07-2022 Hospital Discharge instructions Arthur Medrano MD [...] questions or concerns! documented in this encounter [facility] 08-07-2022 Attending History and physical note H&P [...] been signed. Source Note - Mary Wilkinson MACHINE CLERICAL VERIFIER - MACROECONOMICS PROFESSOR - 07/10/2022 12:30 PM EDT Images from the original note were not included. Comprehensive PreSurgical History and Physical ? Name: Apoorva Gonzalez : 1950 (Age-72 y.o.) Date of Service: Pt seen/examined on 07/10/2022 Procedure Information Date/Time: 07/17/22 1130 Procedure: LEFT UPPER EXTREMITY ARTERIOVENOUS GRAFT PLACEMENT (Left) Location: [facility] Operating Room Surgeons: Raffy Fernandez MD Chief Complaint: Dependence on renal dialysis End stage renal disease History Of Present Illness: 72 y.o. female who we are asked to see/evaluate by Dr. Fernandez for pre-operative evaluation prior to above procedure . ? Denies history of VA, CHF, TIA, CVA Past Medical History: Past Medical History: No date: Chronic kidney disease (CKD) No date: Hemodialysis patient ([facility]) ([facility]) Comment: Wednesday, , Wednesday02/27/2022: History of blood transfusion No date: Hypertension No date: Seizure ([facility]) Comment: Developed seizure-like activity on 02/24 during hospital admission Past Surgical History: Past Surgical History: 02/27/2022: IR CVC TUNNELED DIALYSIS CATHETER PLACEMENT Comment: IR CVC TUNNELED CATHETER PLACEMENT 02/27/2022 Candis Andrade MD [facility] PROCEDURES Medications Prior to Admission: Prior [...] by mouth daily. 03/02/22 04/01/22 Evan Joshua MACHINE CLERICAL VERIFIER - MACROECONOMICS PROFESSOR omega-3 (Fish Oil) 1000 MG capsule Take [...] Screen and Sleep Clinic Referral (if appropriate) [employer] Phone: 08-07-2022 Note Formatting of this n [...] remained palpable. Raffy Fernandez MD Vascular Surgery [facility] 08-07-2022 Note Formatting of this n ote [...] remained palpable. Raffy Fernandez MD Vascular Surgery [facility] 08-07-2022 History and physical note H&P reviewed. [...] Source Note - Mary Wilkinson APRN - MACROECONOMICS PROFESSOR - 07/10/2022 12:30 PM EDT Images from the original note were not included. Comprehensive PreSurgical History and Physical ? Name: Apoorva Gonzalez : 1950 (Age-72 y.o.) Date of Service: Pt seen/examined on 07/10/2022 Procedure Information Date/Time: 07/17/22 1130 Procedure: LEFT UPPER EXTREMITY ARTERIOVENOUS GRAFT PLACEMENT (Left) Location: [facility] Operating Room Surgeons: Raffy Fernandez MD Chief Complaint: Dependence on renal dialysis End stage renal disease History Of Present Illness: 72 y.o. female who we are asked to see/evaluate by Dr. Fernandez for pre-operative evaluation prior to above procedure . ? Denies history of VA, CHF, TIA, CVA Past Medical History: Past Medical History: No date: Chronic kidney disease (CKD) No date: Hemodialysis patient ([facility]/HCC) ([facility]) Comment: Wednesday, , Wednesday02/27/2022: History of blood transfusion No date: Hypertension No date: Seizure ([facility]) Comment: Developed seizure-like activity on 02/24 during hospital admission Past Surgical History: Past Surgical History: 02/27/2022: IR CVC TUNNELED DIALYSIS CATHETER PLACEMENT Comment: IR CVC TUNNELED CATHETER PLACEMENT 02/27/2022 Candis Andrade MD [facility] SPECIAL PROCEDURES Medications Prior to Admission: Prior [...] by mouth daily. 03/02/22 04/01/22 Evan Joshua, MACHINE CLERICAL VERIFIER - MACROECONOMICS PROFESSOR omega-3 (Fish Oil) 1000 MG capsule Take [...] Referral (if appropriate) documented in this encounter [facility] 08-07-2022 Miscellaneous Notes OPERATIVE REPORT DATE OF [...] MD Vascular Surgery documented in this encounter [facility] 07-17-2022 Telephone encounter Note Patient called in [...] New updated information has been faxed to [facility]. [facility] 07-17-2022 Miscellaneous Notes Patient called in today [...] patient. Kailyn has put new orders in [employer] due to case number changed and was cancelled. New updated [facility] SURGERY: LEFT UPPER EXTREMITY AV GRAFT PLACEMENT DATE OF SURGERY: 07/17/22 11:30 PRE TESTIN07/10/2022 12:30 AUTH #: LUIZA CARDIAC CLEARANCE POST OP OR OV: 08/03/2022 2:00 MEDS TO HOLD: NONE MEDS TO CONTINUE: ALL documented in this encounter [facility] 07-17-2022 Attending History and physical note I [...] UPPER EXTREMITY ARTERIOVENOUS GRAFT PLACEMENT (Left) Location: [facility] OR [address] [place] [address] Operating Room Surgeons: Raffy Fernandez MD Chief Complaint: Dependence on renal dialysis End stage renal disease History Of Present Illness: 72 y.o. female who we are asked to see/evaluate by Dr. Fernandez for pre-operative evaluation prior to above procedure . ? Denies history of VA, CHF, TIA, CVA Past Medical History: Past Medical History: No date: Chronic kidney disease (CKD) No date: Hemodialysis patient ([facility]) ([facility]) Comment: Wednesday, , Wednesday02/27/2022: History of blood transfusion No date: Hypertension No date: Seizure ([facility]) Comment: Developed seizure-like activity on 02/24 during hospital admission Past Surgical History: Past Surgical History: 02/27/2022: IR CVC TUNNELED DIALYSIS CATHETER PLACEMENT Comment: IR CVC TUNNELED CATHETER PLACEMENT 02/27/2022 Candis Andrade MD [facility] SPECIAL PROCEDURES Medications Prior to Admission: Prior [...] Screen and Sleep Clinic Referral (if appropriate) [employer] Work Phone: 07-17-2022 History and physical note [...] UPPER EXTREMITY ARTERIOVENOUS GRAFT PLACEMENT (Left) Location: [facility] [address] [place] [address] Operating Room Surgeons: Raffy Fernandez MD Chief Complaint: Dependence on renal dialysis End stage renal disease History Of Present Illness: 72 y.o. female who we are asked to see/evaluate by Dr. Fernandez for pre-operative evaluation prior to above procedure . ? Denies history of VA, CHF, TIA, CVA Past Medical History: Past Medical History: No date: Chronic kidney disease (CKD) No date: Hemodialysis patient (CMS/HCC) (HCC) Comment: Wednesday, , Wednesday02/27/2022: History of blood transfusion No date: Hypertension No date: Seizure ([facility]) Comment: Developed seizure-like activity on 02/24 during hospital admission Past Surgical History: Past Surgical History: 02/27/2022: IR CVC TUNNELED DIALYSIS CATHETER PLACEMENT Comment: IR CVC TUNNELED CATHETER PLACEMENT 02/27/2022 Candis Andrade MD [facility] SPECIAL PROCEDURES Medications Prior to Admission: Prior [...] SLEEP REFERRAL PROTOCOL Electronically signed by: Mary Wilkinson, PARK - MACROECONOMICS PROFESSOR Date: 07/10/2022 at 1:05 PM PAT Protocol referenced includes: 1. Anesthesia Lab Protocol Orders 2. Perioperative Cardiovascular Risk Assessment 3. Anesthesia Assessment 4. Pain Assessment and Acute Pain Service Consult (if appropriate) 5. Medical Clearance/Consult from Internal Medicine (IMS) 6. Shower/Wash Order (for designated surgeries) 7. KOREY Screen and Sleep Clinic Referral (if appropriate) documented in this encounter [facility] 07-17-2022 Note Formatting of this n ote might be different from the original. Pt ate a crab cake and egg at 0530, Dr Fernandez notified, unable to do surgery later. Pt advised that her surgery is cancelled for today and to go home and reschedule for another day. Pt advised to not eat anything at all before next surgery. [facility] 07-17-2022 Note Formatting of this n ote might be different from the original. Pt ate a crab cake and egg at 0530, Dr Fernandez notified, unable to do surgery later. Pt advised that her surgery is cancelled for today and to go home and reschedule for another day. Pt advised to not eat anything at all before next surgery. [facility] [facility] 07-17-2022 Miscellaneous Notes Pt ate a crab cake and egg at 0530, Dr Fernandez notified, unable to do surgery later. Pt advised that her surgery is cancelled for today and to go home and reschedule for another day. Pt advised to not eat anything at all before next surgery. documented in this encounter [facility] [employer] 07-10-2022 Telephone encounter Note Lab called me with a critical lab K 6.6 Patient has ESRD on HD (T-TH-S) and scheduled for HD tomorrow. Advise for patient to go to HD session tomorrow given her elevated K. No need for ED visit at this time. Mari aR Greenwood MD Division of Hospitalist Medicine [facility] [employer] 7:06 PM 07/10/22 [employer] Work Phone: 07-10-2022 Miscellaneous Notes Lab called me with a critical lab K 6.6 Patient has ESRD on HD (T-TH-S) and scheduled for HD tomorrow. Advise for patient to go to HD session tomorrow given her elevated K. No need for ED visit at this time. Maria R Green[facility] MD Division of Hospitalist Medicine [employer] [facility] [employer] 7:06 PM 07/10/22 documented in this encounter [facility] [employer] 07-01-2022 Telephone encounter Note SURGERY: LEFT UPPER EXTREMITY AV GRAFT PLACEMENT DATE OF SURGERY: 07/17/22 11:30 PRE TESTIN07/10/2022 12:30 AUTH #: LUIZA CARDIAC CLEARANCE POST OP OR OV: 08/03/2022 2:00 MEDS TO HOLD: NONE MEDS TO CONTINUE: ALL [facility] [employer] 06-24-2022 History of Present illness Narrative Vascular [...] difficulty. She had vein mapping performed at [facility]. Past Medical History: Past Medical History: [...] MD Vascular Surgery documented in this encounter [facility] 06-03-2022 Note HNO ID: [id number] Author: RT Austen(Vasiliy) Service: Radiology Author Type: [...] RT Austen(R) June 03, 2022 2:29 PM [facility] 06-03-2022 History of Present illness Narrative [...] 2022 2:29 PM documented in this encounter [facility] 12-31-2020 Note HNO ID: [id number] Author: Philly Michael, RN Service: ? Author [...] least a years time. Phone number provided. [facility] Evaluation note Diagnosis ESRD (end stage renal disease) (HCC)- Primary End stage renal disease documented in this encounter [facility]Evaluation note* Diagnosis S/P arteriovenous (AV) graft placement- Primary [facility] Diagnosis End stage renal disease (HCC) End stage renal disease documented in this encounter [facility] note* Diagnosis Hematoma- Primary Contusion of unspecified site Bleeding from wound documented in this encounter [facility]* Diagnosis End stage renal disease (HCC)- Primary End stage renal disease End stage renal disease (HCC) End stage renal disease documented in this encounter [facility] note* Diagnosis Encounter for screening mammogram for malignant neoplasm of breast documented in this encounter [facility]* Diagnosis ESRD on hemodialysis (CMS/HCC) (HCC)- Primary documented in this encounter [facility] note* Diagnosis Hyperkalemia- Primary Hyperpotassemia documented in this encounter [facility] note* Diagnosis End stage renal disease (HCC)- Primary End stage renal disease documented in this encounter [facility] note* Diagnosis Gastrointestinal hemorrhage, unspecified gastrointestinal hemorrhage type- Primary Gastrointestinal hemorrhage, unspecified gastrointestinal hemorrhage type Anemia, unspecified type Anemia Unspecified anemia documented in this encounter [facility] note* Diagnosis Hypertension, unspecified type- Primary documented in this encounter [facility] note* Diagnosis Pulmonary edema, acute (HCC)- Primary Unspecified acute edema of lung Pulmonary edema, acute (HCC) Unspecified acute edema of lung documented in this encounter [facility] note* Diagnosis Shortness of breath- Primary Shortness of breath Acute pulmonary edema (HCC) Unspecified acute edema of lung Hyperkalemia Hyperpotassemia documented in this encounter [facility] note* Diagnosis Encounter for screening mammogram for malignant neoplasm of breast documented in this encounter [facility]* Diagnosis Myoclonus- Primary Fall, initial encounter Hyperkalemia Hyperpotassemia documented in this encounter [facility] note* Diagnosis Adverse effect of drug, initial encounter- Primary documented in this encounter [facility] note* Diagnosis Hematoma- Primary Contusion of unspecified site Hematoma Contusion of unspecified site documented in this encounter [facility] Work Phone: Evaluation note* Diagnosis Sepsis, due to unspecified organism, unspecified whether acute organ dysfunction present (HCC)- Primary Sepsis, due to unspecified organism, unspecified whether acute organ dysfunction present (HCC) Altered mental status, unspecified altered mental status type Buttock wound, left, initial encounter Seizures (HCC) Other convulsions ESRD (end stage renal disease) (HCC) End stage renal disease Dialysis patient ([facility]) Renal dialysis status documented in this encounter [facility]Evaluation note* Diagnosis Wound dehiscence- Primary Disruption of external operation (surgical) wound Wound dehiscence Disruption of external operation (surgical) wound Anemia due to other cause, not classified End stage congestive heart failure (HCC) Seizures (HCC) Other convulsions Pressure ulcer of left buttock, stage 3 (HCC) End stage congestive heart failure (HCC) documented in this encounter [facility]Evaluation note* Diagnosis End stage congestive heart failure (HCC)- Primary ESRD (end stage renal disease) (HCC) End stage renal disease documented in this encounter [facility]Evaluation note* Diagnosis Anemia of chronic disease- Primary Anemia of other chronic disease documented in this encounter [facility]Evaluation note* Diagnosis ESRD (end stage renal disease) on dialysis (HCC)- Primary End stage renal disease documented in this encounter [facility] note* Diagnosis ESRD (end stage renal disease) on dialysis (HCC)- Primary End stage renal disease documented in this encounter [facility]Evaluation note* Diagnosis ESRD (end stage renal disease) on dialysis (HCC) End stage renal disease Preop examination Unspecified pre-operative examination documented in this encounter [facility] note* Diagnosis Fall, initial encounter- Primary Fall, initial encounter Closed head injury, initial encounter Pressure injury of left buttock, stage 3 (HCC) Fall (on)(from) sidewalk curb, initial encounter Moderate malnutrition (CMS/HCC) (HCC) documented in this encounter [facility] note* Diagnosis Transient alteration of awareness- Primary [facility]* Attachments The following attachments cannot be sent through Care Everywhere. * Hyperkalemia (Mongolian) [facility]* Attachments The following attachments cannot be sent through Care Everywhere. * High Blood Pressure Discharge Instructions (Mongolian) documented in this [facility] Discharge instructions* Attachments The following attachments cannot be sent through Care Everywhere. * Anemia of Inflammation (Anemia of Chronic Disease) (Mongolian) documented in this [facility] HealthInstructions* Attachments The following attachments cannot be sent through Care Everywhere. * Preparing for Hemodialysis (Mongolian) * Hemodialysis (Mongolian) documented in this [facility] HealthReason for visit Narrative* Auth/Cert (Routine) Specialty Diagnoses / Procedures Referred By Gustavo jones Referred To Contact Diagnoses Hematoma Fluid Collection Procedures No coded [place] [address] [address] Department [place] [address] Phone: tel: fax: [facility] [address] [phone] [place] [address] Phone: tel: Referral ID Status Reason Start Date Expiration Date Visits Re quested Visits Authorized [id number] 1 1 [facility] Work Phone: Reason for visit Narrative* Imaging (Routine) - Closed Specialty Diagnoses / Procedures Referred By Gustavo jones Referred To Contact Cardiology Diagnoses ESRD (end stage renal disease) on dialysis (HCC) Preop examination Procedures Vascular US vessel map for hemodialysis access arm bilateral Raffy Fernandez MD [address] [facility] [address] [place] [address] Phone: tel: fax: Referral ID Status Reason Start Date Expiration Date Visits Re quested Visits Authorized [id number] Closed 11/28/2024 11/28/2026 1 1 [facility] Advance Directives No Advanced Directives Records FoundDocuments on File Type Date Recorded Patient Statistics Professor Expl anation Advance Directives and Living Will Power of Grab Setter Documents on File Type Date Recorded Patient Statistics Professor Expl anation Advance Directive(s) 10/25/2019 7:08 AM [...] Documents on File Type Date Recorded Patient Statistics Professor Expl anation Advance Directives and Livin g Will 10/01/2022 1:19 PM Power of Grab Setter 10/01/2022 1:19 PM Latest Code Status on File Code Status Date Activated Date Inactivated Comments Full Code 08/07/2022 8:15 AM 08/08/2022 8:14 AM Code Status History Code Status Date Activated Date Inactivated Comments Full Code 07/17/2022 9:55 AM 07/17/2022 12:44 PM Full Code 02/24/2022 5:00 PM 03/02/2022 7:07 PM Documents on File Type Date Recorded Patient Statistics Professor Expl anation Advance Directives and Livin g Will 10/01/2022 1:19 PM Power of Grab Setter 10/01/2022 1:19 PM Date Activated Date Inactivated [...] Documents on File Type Date Recorded Patient Statistics Professor Expl anation DNR (Do Not Resuscitate) 01/26/2024 11:24 AM Advance Directives and Livin g Will 10/01/2022 1:19 PM Power of Grab Setter 10/01/2022 1:19 PM Date Activated Date Inactivated [...] Healthcare Agent Relationshi p Communication Mayur Matthews [facility] Care Agent Healthcare Agents on File Name Relationship Healthcare Agent Relationshi p Communication [facility]ur [facility] Agent Healthcare Agents on File Name Relationship Healthcare Agent Relationshi p Communication Mayur Barragan [facility] Care Agent Healthcare Agents on File Name Relationship Healthcare Agent Relationshi p Communication Mayur Barragan [facility] Care Agent Date Activated Date Inactivated Comments 08/31/2024 12:12 AM Question Answer Comments Plan of Care: Code Status Discussion Completed Decision Maker: Patient Documents on File Type Date Recorded Patient Statistics Professor Expl anation Power of Grab Setter 10/24/2024 11:41 AM Power of Grab Setter 10/24/2024 11:24 AM DNR (Do Not Resuscitate) 01/26/2024 11:24 AM Advance Directives and Living Will 10/01/2022 1:19 PM Power of Grab Setter 10/01/2022 1:19 PM DNR (Do Not Resuscitate) 11/11/2024 12:26 PM [place] DNR Form Date Activated Date Inactivated Comments [...] Healthcare Agent Relationshi p Communication Deshawn Crystal [facility] Care Agent Documents on File Type Date Recorded Patient Statistics Professor Expl anation Power of Grab Setter 10/24/2024 11:41 AM Power of Grab Setter 10/24/2024 11:24 AM DNR (Do Not Resuscitate) 01/26/2024 11:24 AM Advance Directives and Living Will 10/01/2022 1:19 PM Power of Grab Setter 10/01/2022 1:19 PM DNR (Do Not Resuscitate) 11/15/2024 10:00 AM [place] DNR Form DNR (Do Not Resuscitate) 11/11/2024 12:26 PM [place] DNR Form Date Activated Date Inactivated Comments [...] Relationship Healthcare Agent Relationshi p Communication Deshawn [facility] Agent Healthcare Agents on File Name Relationship Healthcare Agent Relationshi p Communication Deshawn [facility] Care Agent Documents on File Type Date Recorded Patient Statistics Professor Expl anation Power of Grab Setter 10/24/2024 11:24 AM DNR (Do Not Resuscitate) 01/26/2024 11:24 AM Advance Directives and Living Will 10/01/2022 1:19 PM Power of Grab Setter 10/01/2022 1:19 PM DNR (Do Not Resuscitate) 11/15/2024 10:00 AM [place] DNR Form DNR (Do Not Resuscitate) 11/11/2024 12:26 PM [place] DNR Form Date Activated Date Inactivated Comments [...] Relationship Healthcare Agent Relationshi p Communication Deshawn [facility] Agent Documents on File Type Date Recorded Patient Statistics Professor Expl anation Power of Grab Setter 10/24/2024 11:24 AM DNR (Do Not Resuscitate) 01/26/2024 11:24 AM Advance Directives and Living Will 10/01/2022 1:19 PM Power of Grab Setter 10/01/2022 1:19 PM DNR (Do Not Resuscitate) 11/15/2024 10:00 AM [place] DNR Form DNR (Do Not Resuscitate) 11/11/2024 12:26 PM [place] DNR Form Healthcare Agents on File Name Relationship Healthcare Agent Relationshi p Communication Deshawn [facility] Care Agent Healthcare Agents on File Name Relationship Healthcare Agent Relationshi p Communication Deshawn Crystal [facility] Care Agent Healthcare Agents on File Name Relationship Healthcare Agent Relationshi p Communication Deshawn [facility] Care Agent Documents on File Type Date Recorded Patient Statistics Professor Expl anation Power of Grab Setter 10/24/2024 11:24 AM DNR (Do Not Resuscitate) 01/26/2024 11:24 AM Advance Directives and Living Will 10/01/2022 1:19 PM Power of Grab Setter 10/01/2022 1:19 PM DNR (Do Not Resuscitate) 12/20/2024 2:49 PM [place] DNR Form DNR (Do Not Resuscitate) 11/15/2024 10:00 AM [place] DNR Form DNR (Do Not Resuscitate) 11/11/2024 12:26 PM [place] DNR Form Date Activated Date Inactivated Comments [...] Agents on File Name Relationship Healthcare [facility] Deshawnvibha Crystal [facility] Agent [phone] ([email or web address]) Documents on File Type Date Recorded Patient Statistics Professor Expl anation DNR (Do Not Resuscitate) 12/21/2024 11:18 AM Power of Grab Setter 10/24/2024 11:24 AM DNR (Do Not Resuscitate) 01/26/2024 11:24 AM Advance Directives and Living Will 10/01/2022 1:19 PM Power of Grab Setter 10/01/2022 1:19 PM DNR (Do Not Resuscitate) 12/20/2024 2:49 PM [place] DNR Form DNR (Do Not Resuscitate) 11/15/2024 10:00 AM [place] DNR Form DNR (Do Not Resuscitate) 11/11/2024 12:26 PM [place] DNR Form Date Activated Date Inactivated Comments [...] Healthcare Agent Relationshi p Communication Deshawnvibha Crystal [facility] Agent Assessments Diagnosis Chronic kidney disease, stage [...] t Referred To Contact Arthur Medrano [place] [facility] [place] [address] Referral ID Status Reason Start Date Expiration Date Visits Re quested Visits Authorized [id number] Closed 1 1 Specialty Diagnoses / Procedures Referred By Contac t Referred To Contact Radiology Diagnoses End stage renal disease (HCC) Procedures IR CVC tunneled catheter removal Radha Meza MD [address] [place] [id number] Referral ID Status Reason Start Date Expiration Date Visits Re quested Visits Authorized [id number] Closed 09/28/2022 03/27/2023 1 1 Specialty Diagnoses / Procedures Referred By Contac t Referred To Contact Radiology Diagnoses End stage renal disease (HCC) Procedures IR fistulagram Radha Meza MD [address] [place] [address] [place] [address] Referral ID Status Reason Start Date Expiration Date V isits Requested Visits Authorized [id number] Pending Review 06/25/2023 06/24/2024 1 1 Additional Source Comments Source Comments (unrecognize d section and content) In the event this informatio n is protected by the Federal Confidentiality of Alcohol and Drug Abuse Patient Records regulations: The Federal rules restrict any use of the information to criminally investigate or prosecute any alcohol or drug abuse patient.[facility] the event this information is protected by the Federal Confidentiality of Alcohol and Drug Abuse Patient Records regulations: The Federal rules restrict any use of the information to criminally investigate or prosecute any alcohol or drug abuse patient.[facility] the event this information is protected by the Federal Confidentiality of Alcohol and Drug Abuse Patient Records regulations: The Federal rules restrict any use of the information to criminally investigate or prosecute any alcohol or drug abuse patient.[facility] the event this information is protected by the Federal Confidentiality of Alcohol and Drug Abuse Patient Records regulations: The Federal rules restrict any use of the information to criminally investigate or prosecute any alcohol or drug abuse patient.[facility] INFORMATION SOURCE (unrecogn ized section and content) DATE CREATED AUTHOR 11/03/2019 [facility] DATE CREATED AUTHOR AUTHOR'S ORGANIZ ATION 11/29/2020 [employer] DATE CREATED AUTHOR AUTHOR'S ORGANIZ ATION 09/12/2021 [facility] DATE CREATED AUTHOR AUTHOR'S ORGANIZ ATION 06/05/2022 [facility] DATE CREATED AUTHOR AUTHOR'S ORGANIZ ATION 09/09/[address] [facility] DATE CREATED AUTHOR AUTHOR'S ORGANIZ ATION 09/16/[address] [facility] DATE CREATED AUTHOR AUTHOR'S ORGANIZ ATION 12/28/2024 [facility] DATE CREATED AUTHOR AUTHOR'S ORGANIZ ATION 12/29/2024 [facility] [employer] [facility] Reason for Visit (unrecogniz ed section and content) Status Reason Specialty Diagnoses / Procedures Referred By Contact Referred To Contact Diagnoses Chronic kidney disease (CKD), stage IV (severe) (HCC) Procedures RENAL BX. PERCUTANEOUS BIOPSY KIDNEY PERCUTANEOUS [place] Interventional Radiology [address] [address] Reason Comments New Patient Eval for perm access placement; 06/03/22 Specialty Diagnoses / Procedures Referred By Contac t Referred To Contact Diagnoses Dependence on renal dialysis (HCC) End stage renal disease (HCC) Dependence on renal dialysis (CMS/HCC) (HCC) [Z99.2] End stage renal disease (HCC) [N18.6] Procedures KS CRTJ ARVEN FSTL XCP DIR TL ANAST NONAUTOG GRF LEFT UPPER EXTREMITY ARTERIOVENOUS GRAFT PLACEMENT Raffy Fernandez MD [address] [place] [address] [address] [place] [address] Referral ID Status Reason Start Date Expiration Date Visits Re quested Visits Authorized [id number] 1 1 Reason Onset Date Comments Surgery Scheduling 07/01/2022 Referral ID Status Reason Start Date Expiration Date Visits Re quested Visits Authorized [id number] 1 1 Specialty Diagnoses / Procedures Referred By Contac t Referred To Contact Radiology Diagnoses End stage renal disease (HCC) Procedures IR CVC tunneled catheter removal Radha Meza MD [address] [place] [address] Referral ID Status Reason Start Date Expiration Date Visits Re quested Visits Authorized [id number] Closed 09/28/2022 03/27/2023 1 1 Reason Comments [...] type Procedures k92.2 Gabriel Delgado MD [address] [place] [address] Phone: tel: fax: [facility] Cardiac Thoracic Vascular Intensive Care Unit CTV ICU T1 [address] [place] [address] Phone: tel: Referral ID Status Reason Start Date Expiration Date Visits Re quested Visits Authorized [id number] 1 1 Reason Comments Hypertension Treated with [...] edema, acute (HCC) Procedures . Radha Kevin, [address] [place] [address] Phone: tel: fax: [facility] EMERGENCY DEPT [address] [place] [address] Phone: tel: Referral ID Status Reason Start Date Expiration Date Visits Re quested Visits Authorized [id number] 1 1 Reason Comments Shortness of Breath Patient presents to ED via triage with SOB. Patient states she's missed a couple dialysis tx. Specialty Diagnoses / Procedures Referred By Gustavo jones Referred To Contact Diagnoses Shortness of breath Hyperkalemia Acute pulmonary edema (HCC) Procedures . John Mayes, [address] [place] [address] Phone: tel: fax: [facility] Cardiac Progressive Care Unit PCU [address] [place] [address] Phone: tel: Referral ID Status Reason Start Date Expiration Date Visits Re quested Visits Authorized [id number] 1 1 Reason Comments Fall Pt presents [...] Comments Altered Mental Status Pt came from [facility]. Squad was called for weakness and altered [...] present (HCC) Procedures .. Loni Zambrano MD [address] [place] [address] Phone: tel: fax: [facility] Intensive Care Unit ICU [address] [place] [address] Phone: tel: Referral ID Status Reason Start Date Expiration Date Visits Re quested Visits Authorized [id number] 1 1 Reason Comments Wound Check EMS from [place] f or bleeding fistula in left upper arm. DC from [facility] to [place] previously. Specialty Diagnoses / Procedures Referred By Gustavo jones Referred To Contact Diagnoses Wound dehiscence Procedures .. Edson Velazquez MD [address] [place] [address] Phone: tel: fax: [facility] Cardiac Vascular Progressive Care Unit PCC [address]C [address] [place] [address] Phone: tel: Referral ID Status Reason Start [...] initial encounter Procedures . Magalys Can MD [address] [place] [address] Phone: tel: fax: [facility] ROSEY [address] [place] [address] Phone: tel: Referral ID Status Reason Start Date Expiration Date Visits Re quested Visits Authorized [id number] 1 1 Reason Comments Altered Mental Status Per [place] Mateo gerber, pt was altered last night. Sent to ED for eval. Pt denies any complaints. Care Teams (unrecognized sec tion and content) Side Seam 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 Relationship Specialty Start Date End Date Christiano Grove, DO [address] [place] [phone] PCP - General Family Medicine 10/25/19 [employer] 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 Relationship Specialty Start Date End Date Christiano Grove, DO [address] [place] [phone] PCP - General Family Medicine 10/25/19 [employer] Se[employer] 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 Relationship Specialty Start Date End Date Christiano Grove, DO [address] [place] [address] PCP - General 09/17/16 Carlos Manuel Wang MD [address] [place] [address] Nephrology 06/24/22 Raffy Fernandez MD [address] [place] [address] Consulting Physician Vascular Surgery 06/24/22 [facility] 02/03/22 Side Seam 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 Relationship Specialty Start Date End Date Christiano Grove, DO [address] [place] [address] PCP - General 09/17/16 Carlos Manuel Wang MD [address] [place] [address] Nephrology 06/24/22 Raffy Fernandez MD [address] [place] [address] Consulting Physician Vascular Surgery 06/24/22 [facility] 02/03/22 Side Seam 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 Relationship Specialty Start Date End Date Christiano Grove, DO [address] [place] [address] PCP - General 09/17/16 Carlos Manuel Wang MD [address] [place] [address] Nephrology 06/24/22 Raffy Fernandez MD [address] [place] [address] Consulting Physician Vascular Surgery 06/24/22 [facility] 02/03/22 Side Seam 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 Relationship Specialty Start Date End Date Christiano Grove, DO [address] [place] [address] PCP - General 09/17/16 Carlos Manuel Wang MD [address] [place] [address] Nephrology 06/24/22 Raffy Fernandez MD [address] [place] [address] Consulting Physician Vascular Surgery 06/24/22 [facility] 02/03/22 Side Seam 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 Relationship Specialty Start Date End Date Christiano Grove, DO [address] [place] [address] PCP - General 09/17/16 Carlos Manuel Wang MD [address] [place] [address] Nephrology 06/24/22 Raffy Fernandez MD [address] [place] [address] Consulting Physician Vascular Surgery 06/24/22 [facility] 02/03/22 Side Seam 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 Relationship Specialty Start Date End Date Christiano Grove, DO [address] [place] [address] PCP - General 09/17/16 Carlos Manuel Wang MD [address] [place] [address] Nephrology 06/24/22 Raffy Fernandez MD [address] [place] [address] Consulting Physician Vascular Surgery 06/24/22 [facility] 02/03/22 Side Seam 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 Relationship Specialty Start Date End Date Christiano Grove DO [address] [place] [address] PCP - General 09/17/16 Carlos Manuel Wang MD [address] [place] [address] Nephrology 06/24/22 Raffy Fernandez MD [address] [place] [address] Consulting Physician Vascular Surgery 06/24/22 [facility] 02/03/22 Side Seam 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 Relationship Specialty Start Date End Date Christiano Grove DO [address] [place] [address] PCP - General 09/17/16 Carlos Manuel Wang MD [address] [place] [address] Nephrology 06/24/22 Raffy Fernandez MD [address] [place] [address] Consulting Physician Vascular Surgery 06/24/22 [facility] 02/03/22 Side Seam 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 Relationship Specialty Start Date End Date Christiano Grove DO [address] [place] [address] PCP - General 09/17/16 Carlos Manuel Wang MD [address] [place] [address] Nephrology 06/24/22 Raffy Fernandez MD [address] [place] [address] Consulting Physician Vascular Surgery 06/24/22 [facility] 02/03/22 Side Seam 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 Relationship Specialty Start Date End Date Christiano Grove DO [address] [facility] [place] [address] PCP - General 09/17/16 Carlos Manuel Wang MD [address] [place] [facility] [place] [address] Nephrology 06/24/22 Raffy Fernandez MD [address] [place] [address] Consulting Physician Vascular Surgery 06/24/22 [facility] 02/03/22 Side Seam 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 Relationship Specialty Start Date End Date Christiano Grove DO [address] [place] [address] PCP - General 09/17/16 Carlos Manuel Wang MD [address] [place] [address] Nephrology 06/24/22 Raffy Fernandez MD [address] [place] [address] Consulting Physician Vascular Surgery 06/24/22 [facility] 02/03/22 Side Seam 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 Relationship Specialty Start Date End Date Christiano Grove DO [address] [place] [address] PCP - General 09/17/16 Carlos Manuel Wang MD [address] [place] [address] Nephrology 06/24/22 Raffy Fernandez MD [address] [place] [address] Consulting Physician Vascular Surgery 06/24/22 [facility] 02/03/22 Side Seam 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 Relationship Specialty Start Date End Date Christiano Grove DO [address] [place] [address] PCP - General 09/17/16 Carlos Manuel Wang MD [address] [place] [address] Nephrology 06/24/22 Raffy Fernandez MD [address] [place], [place] [id number] Consulting Physician Vascular Surgery 06/24/22 [facility] 02/03/22 Side Seam 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 Relationship Specialty Start Date End Date Christiano Grove DO [address] [place] [address] PCP - General 09/17/16 Carlos Manuel Wang MD [address] [place] [address] Nephrology 06/24/22 Raffy Fernandez MD [address] [place] [address] Consulting Physician Vascular Surgery 06/24/22 [facility] 02/03/22 Side Seam 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 Relationship Specialty Start Date End Date Christiano Grove DO [address] [place] [address] PCP - General 09/17/16 Carlos Manuel Wang MD [address] [place] [address] Nephrology 06/24/22 Raffy Fernandez MD [address] [place] [address] Consulting Physician Vascular Surgery 06/24/22 [facility] 02/03/22 Side Seam 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 Relationship Specialty Start Date End Date PjChristiano garciaDO [address] [place], [place] [address] PCP - General 09/17/16 01/19/24 Judit Roxie [address] [place] [phone] PCP - General Family Medicine 01/20/24 Carlos Manuel Wang MD [address] [place] [address] Nephrology 06/24/22 Raffy Fernandez MD [address] [place] [address] Consulting Physician Vascular Surgery 06/24/[address] [facility] 02/03/22 Side Seam 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 Relationship Specialty Start Date End Date Roxie Spain [address] [place] [phone] PCP - General Family Medicine 01/20/24 Carlos Manuel Wang MD Nephrology 06/24/22 Raffy Fernandez MD [address] [place], [place] [id number] Consulting Physician Vascular Surgery 06/24/22 [facility] 02/03/22 Side Seam 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 Relationship Specialty Start Date End Date Hazel Spaingail [address] [place] [phone] PCP - General Family Medicine 01/20/24 Carlos Manuel Wang MD Nephrology 06/24/22 [address] Fern[address] [place] [address] Consulting Physician Vascular Surgery 06/24/22 [facility] 02/03/22 Side Seam 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 Relationship Specialty Start Date End Date Roxie Spain [address] [facility] [place] [phone] PCP - General Family Medicine 01/20/24 Carlos Manuel Wang MD Nephrology 06/24/[address] [place] [address] Consulting Physician Vascular Surgery 06/24/22 Sh[facility] 02/03/22 Side Seam 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 Relationship Specialty Start Date End Date Roxie Spain [address] [facility] [place] [address] PCP - General Family Medicine 01/20/24 Carlos Manuel Wang MD Nephrology 06/24/[address] [place] [address] Consulting Physician Vascular Surgery 06/24/22 [facility] 02/03/22 Side Seam 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 Relationship Specialty Start Date End Date Roxie Spain [address] [facility] [place] [address] PCP - General Family Medicine 01/20/24 Carlos Manuel Wang MD Nephrology 06/24/22 Raffy Fernandez MD [address] [place] [address] Consulting Physician Vascular Surgery 06/24/22 Sh[facility] 02/03/22 Side Seam 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 Relationship Specialty Start Date End Date Roxie Spain [address] [facility] [place] [address] PCP - General Family Medicine 01/20/24 Carlos Manuel Wang MD Nephrology 06/24/22 Raffy Fernandez MD [address] [place] [address] Consulting Physician Vascular Surgery 06/24/22 [facility] 02/03/22 Side Seam 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 Relationship Specialty Start Date End Date Roxie Spain [address] [facility] [place] [phone] PCP - General Family Medicine 01/20/24 Carlos Manuel Wang MD Nephrology 06/24/22 Raffy Fernandez MD [address] [place] [address] Consulting Physician Vascular Surgery 06/24/22 [facility] 02/03/22 Side Seam 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 Relationship Specialty Start Date End Date Roxie Spain [address] [place] [address] PCP - General Family Medicine 01/20/24 Carlos Manuel Wang MD Nephrology 06/24/22 Raffy Fernandez MD [address] [place] [address] Consulting Physician Vascular Surgery 06/24/22 [facility] [place] [facility] 02/03/22 [facility] 11/14/24 Side Seam 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 Relationship Specialty Start Date End Date Roxie Spain [address] [place] [address] PCP - General Family Medicine 01/20/24 Carlos Manuel Wang MD Nephrology 06/24/22 Raffy Fernandez MD [address] [place], [place] [id number] Consulting Physician Vascular Surgery 06/24/22 [facility] 02/03/22 [facility] 11/14/24 Side Seam 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 Relationship Specialty Start Date End Date Roxie Spain [address] [place] [phone] PCP - General Family Medicine 01/20/24 Carlos Manuel Wang MD Nephrology 06/24/22 Raffy Fernandez MD [address] [place] [address] Consulting Physician Vascular Surgery 06/24/22 [facility] [place] [facility] 02/03/22 [facility] 11/14/24 Side Seam 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 Relationship Specialty Start Date End Date Roxie Spain [address] [facility] [place] [phone] PCP - General Family Medicine 01/20/24 Carlos Manuel Wang MD Nephrology 06/24/22 Raffy Fernandez MD [address] [place] [address] Consulting Physician Vascular Surgery 06/24/22 [facility] [place] [facility] 02/03/22 [facility] 11/14/24 Side Seam 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 Relationship Specialty Start Date End Date Roxie Spain [address] [facility] [place] [phone] PCP - General Family Medicine 01/20/24 Carlos Manuel Wang MD Nephrology 06/24/22 Raffy Fernandez MD [address] [place] [address] Consulting Physician Vascular Surgery 06/24/22 [facility] [facility]22 [facility] 11/14/24 Side Seam 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 Relationship Specialty Start Date End Date Roxie Spain [address] [facility] [place] [address] PCP - General Family Medicine 01/20/24 Carlos Manuel Wang MD Nephrology 06/24/22 Raffy Fernandez MD [address] [place] [address] Consulting Physician Vascular Surgery 06/24/22 [facility] 02/03/22 [facility] 11/14/24 Side Seam 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 Relationship Specialty Start Date End Date Roxie Spain [address] [facility] [place] [address] PCP - General Family Medicine 01/20/24 Carlos Manuel Wang MD Nephrology 06/24/22 Raffy Fernandez MD [address] [place] [address] Consulting Physician Vascular Surgery 06/24/22 [facility] [place] [facility] 02/03/22 [facility] 11/14/24 Side Seam 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 Relationship Specialty Start Date End Date Roxie Spain [address] [facility] [place] [address] PCP - General Family Medicine 01/20/24 Carlos Manuel Wang MD Nephrology 06/24/22 Raffy Fernandez MD [address] [place] [address] Consulting Physician Vascular Surgery 06/24/22 [facility] [place] [facility] 02/03/22 [facility] 11/14/24 Scheduled Active and Recently Administ [...] dose 1345 (Given - Provider: Love Baig [facility]) PRN Medication Order 01/23/2024 01/24/2024 01/25/2024 acetaminophen [...] Alternative - Provider: Mary Francisco RN) 08 ([facility] Hold - Provider: Automatic Transfer Provider - Reason: Patient not available)102 ([facility] Unhold - Provider: Automatic Transfer Provider) acetaminophen [...] Transfer Provider - Reason: Patient not available)102 ([facility] Unhold - Provider: Automatic Transfer Provider) Diclofenac [...] Intraprocedure 1637 (Given - Provider: Rayshawn Lawson, CYNTHIA) ondansetron (Zofran) injection 4 mg(Linked Group [...] (Given - Provider: Mary Francisco RN) 0824 ([facility] Hold - Provider: Automatic Transfer Provider - Reason: Patient not available)1029 ([facility] Unhold - Provider: Automatic Transfer Provider) senna-docusate sodium (Senokot-S) 8.6-50 MG tablet 2 tablet 2 tablet, Oral, Daily PRN, constipation, Starting on 01/23/24 at 0745 0810 (Given - Provider: Sneha Andrea RN) 08 ([facility] Hold - Provider: Automatic Transfer Provider - Reason: Patient not available)102 ([facility] Unhold - Provider: Automatic Transfer Provider) sodium [...] less into rate field of order. 08 ([facility] Hold - Provider: Automatic Transfer Provider - Reason: Patient not available)102 ([facility] Unhold - Provider: Automatic Transfer Provider) sodium [...] been cleared of remaining blood product. 0824 ([facility] Hold - Provider: Automatic Transfer Provider - Reason: Patient not available)102 ([facility] Unhold - Provider: Automatic Transfer Provider) sodium chloride 0.9% (NS) flush 10 mL 10 mL, IntraVENous, PRN, line care, Starting on 01/23/24 at 0950, After every IV line use 08 ([facility] Hold - Provider: Automatic Transfer Provider - [...] 2315 2315 (Due) 0821 (Given - Provider: Celine Gomez)1200 (Not Given - Provider: Celine Gomez [...] Diane 03/02/24 at 0922, Last occurrence on [facility] 03/04/24 at 2200, For 3 days, Obtain [...] 8 hours PRN, nausea, vomiting, Starting on [place] 03/02/24 at 0753, 1st Line. If inadequate [...] RN) 0816 (Given - Provider: Jessica La, CYTNHIA) chlorhexidine (Hibiclens) 4 % solution Topical, Daily, [...] Jessica La, CYNTHIA) lidocaine-EPINEPHrine (Xylocaine W/EPI) 1 %-[id number] injection 25 mL 25 mL, Injection, Once, [...] arterial lumen) 1307 (Given - Provider: Kimmie Snadhu RN) HYDROmorphone (Dilaudid) injection 0.25 mg 0.25 [...] sedation for opioid reversal - MUST notify container finisher provider immediately after first dose, may give [...] Provider: Bee Hoyos, CYNTHIA)1004 (Given - Provider: Jessiac La, RN)1654 (Given - Provider: Jessica La, [...] mL, IntraVENous, PRN, line care, Starting on [place] 10/22/24 at 1304, For Line Patency: Peripheral [...] sedation for opioid reversal - MUST notify container finisher provider immediately after first dose, may give [...] over 12 Hours, Daily, First dose on [place] 12/10/24 at 0900, Apply patch to affected [...] IntraVENous, Every 12 hours, First dose on [facility] 12/09/24 at 0630, For Line Patency: Peripheral [...] sedation for opioid reversal - MUST notify container finisher provider immediately after first dose, may give [...] daily PRN, agitation, first line for agitation, [place] PRN Seroquel for ONLY if danger to [...] and flush line post transfusion, Starting on [place] 12/17/24 at 0832, For 1 dose, For [...] BE BASED ON THE PRIMARY CLINICAL RECORDS. [facility]. provides no warranty or guarantee of the accuracy or completeness of information in this document.
[2025-01-05 07:38] LABS: AST(SGOT) 44 U/L (<=31); Alanine Aminotransfer ALT/SGPT 17 U/L (<=34); Albumin, Serum 2.0 g/dL (3.4-4.8); Alkaline Phosphatase 271 U/L (35-104); Anion Gap 9 (5-15); BUN 25 mg/dL (4-19); BUN/Creat Ratio 8.4 RATIO (10-20); CPK Total, Creatine Kinase 39 U/L (24-195); Calcium,Total 7.8 mg/dL (7.6-11.0); Carbon Dioxide 30.5 mmol/L (21.0-32.0); Chloride 97 mmol/L (98-108); Cholesterol 106 mg/dL (<=200); Globulin 3.6 g/dL (2.2-4.2); Glucose 68 mg/dL (70-99); Low Density Lipoprotein Calc. 50 mg/dL; Potassium 2.9 mmol/L (3.3-5.1); Triglycerides 58 mg/dL; Very Low Density Lipoprotein 12 mg/dL (5-40); cholesterol:hdl ratio screen 2.38
== END ==
LOC: OLS.SANC 05:00
PROVIDERS: Visit Provider Internal Medicine
DX: I12.0 Hypertensive chronic kidney disease with stage 5 chronic kidney disease or end stage renal disease (principal); N18.6 End stage renal disease; D63.1 Anemia in chronic kidney disease
CPT/HCPCS: 36415; 80053; 80061; 82550

== ENCOUNTER → 2025-01-09 | Outpatient (REF) | payer MEDICARE, SELFPAY ==
[2025-01-09 09:14] LABS: Anion Gap 11 (5-15); BUN 41 mg/dL (4-19); BUN/Creat Ratio 10.2 RATIO (10-20); Calcium,Total 8.2 mg/dL (7.6-11.0); Carbon Dioxide 28.4 mmol/L (21.0-32.0); Chloride 102 mmol/L (98-108); Glucose 76 mg/dL (70-99); Potassium 4.4 mmol/L (3.3-5.1)
== END ==
LOC: OLS.SANC 04:00
DX: I10 Essential (primary) hypertension (principal); D64.9 Anemia, unspecified
CPT/HCPCS: 36415; 80048

== ENCOUNTER → 2025-01-25 05:00 | Outpatient (REF) | payer MEDICARE, SELFPAY ==
--- OUTSIDE RECORDS SUMMARY | 2025-01-25 04:37 | XMS RPT_ITS | CCD ---
Author Organization [facility] Care Team Providers Care Ocular Care Aide Name Role Phone Bonyo Alvarado S Primary Care Provider Unavailable Primary Care Provider Unavailabl e Bonyo Alvarado Wes Primary Care Provider Bonyo DO, Alvarado Wes Primary Care Provider WANG, CARLOS MANUEL Q Referring Unavailable BONYO, [...] Unavailable Primary Care Provider Unavailabl e BICAKODAK DO~[id number], BICAKODAK VERA ittmark g Unavailable SAROJ DENG, RADHA Procedure Practitioner Unav DANIELA Perdue MD Consulting Unavailable JAYANT DO~[id number], JAYANT HEARN Atten floridalma Unavailable ROXIE SPAIN MD Primary Care Unavailable DANIELA THORNTON MD Consulting Unavailable TEZ 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, EDWIN Consulting Unavailable TEZ 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, EDWIN Consulting Unavailable CECY DENG, NEVA Consulting Unavailable CECY DENG, NEVA Consulting Unavailable ALTHEA DENG, BLANCA Consulting Unavailable ALTHEA DENG, BLANCA Consulting Unavailable LELAND DO, HONORIO David Consulting Unavailabl e LELAND DO, HONORIO A Consulting Unavailabl e ZIDEHSARAI DO, JOSE G P Consulting Unavaila ble ZIDEHSARAI DO, JOSE G P Consulting Unavaila ble BICAKODAK DO~[id number], BICAKODAK VERA Attendin g Unavailable ALTHEA DENG, BLANCA Procedure Practitioner Unavaila KEV Hills MD Consulting Unavailable POLLOCK DO~[id number], KEITH David Admitting Unavailable ROXIE SPAIN MD Primary Care Unavailable KEV EVANS MD Consulting Unavailable MASON CHAVARRIA MD Procedure Practitioner Unabrock VALLE DO, MAGALYS Magdaleno Consulting Unavailable MAGALYS VALLE DO Consulting Unavailable JESSICA PARKER DO Procedure Practitioner Unava ilable SAROJ DENG, RADHA Procedure Practitioner Unav clotilde FARLEY MD, EDWARD Consulting Unavailable MIGUELITO DENG, EDWARD Consulting Unavailable CECY DENG, NEVA Consulting Unavailable MARCUS HUFF DO Procedure Practitioner Lucitavalorraine SAM MD, NEVA Consulting Unavailable EDDA DENG, GERA Emanuel Consulting Unavailmadai BAÑUELOS MD, GERA Emanuel Consulting Unavailabl e BRENT DRIVER'S EDUCATION INSTRUCTOR, KLEVER Consulting Unavailabl e BRENT DRIVER'S EDUCATION INSTRUCTOR, KLEVER Consulting Unavailabl e MAYLIN LEÓN MD Consulting Unava ilable MAYLIN LEÓN MD Consulting Unava ilable LE DO~[id number], RONDA KRISHNA Admitting Unavai lable LE DO~[id number], RONDA KRISHNA Attending ROXIE Mendoza MD Primary Care Unavailable RADHA MCKEON Referring Unavailable ALSMARIELLAAMINTEODORO Y Admitting Unavailable LEVI GAMBINO Attending Unavailjoann Wang MD, Carlos Manuel Q Unavailable Jim DENG, Raffy Unavailable [phone] Roxie Spain Primary Care Provider [phone] MO VIEIRA Attending Unavailable VICTOR MANUEL BENITO Consulting Unavailable LETICIA LEONARDO Admitting Unavailable JUDIT, ROXIE Primary Care Unavailable ARGENIS, SHAMAR Consulting Unavailable GERARD CARRILLO Attending Unavailable VOROSHILOVA, RADHA Consulting Unavailable LONI ZAMBRANO Admitting Unavailable JUDIT, ROXIE Primary Care Unavailable ARGENIS, SHAMAR Consulting Unavailable MARCUS RAGLAND Attending Unavailable JUDIT, ROXIE Primary Care Unavailable FELIBERTO KAMINSKI Consulting Unavailable KEVIN DO Attending Unavailable MARCUS, EDSON Admitting Unavailable JUDIT, ROXIE Primary Care Unavailable MAGALYS CAN Admitting Unavailable MAGALYS CAN Attending Unavailable UJDIT, ROXIE Primary Care Unavailable RIVAS SANCHEZ Attending Unavail able JUDIT, ROXIE Primary Care Unavailable BROWN KAUR Attending Unavailable JUDIT, ROXIE Primary Care Unavailable KEV WARNER Attending Unavailable JUDIT, ROXIE Primary Care Unavailable GEOFF GONSALES Attending Unavailable KUZMIN, RADHA Admitting Unavailable JUDIT, ROXIE Primary Care Unavailable VERONICA ABEBE Attending Unavailable JUDIT, ROXIE Primary Care Unavailable JOHN MAYES Attending Unavailable PIPE SOTO Consulting Unavailable KEV WANG Admitting Unavailable JUDIT, ROXIE Primary Care Unavailable BLANCA [place] Consulting Unavailable ARGENIS, SHAMAR Consulting Unavailable JUDIT, ROXIE Primary Care Unavailable JIM, RAFFY Attending Unavailable JUDIT, ROXIE Primary Care Unavailable JIM, RAFFY Attending Unavailable JUDIT, ROXIE Primary Care Unavailable JIM, RAFFY Referring Unavailable JIM, RAFFY Attending Unavailable JUDIT, ROXIE Primary Care Unavailable JUDIT, ROXIE Referring Unavailable JUDIT, ROXIE Attending Unavailable EMILY SPARROW Consulting Unavailable LETICIA COLLIER Attending Unavailable JUDIT, ROXIE Primary Care Unavailable GABRIEL DELGADO Admitting Unavailable Mukkamalla OLS, Mahaveer Attending Unavail able Mukkamalla OLS, Mahaveer Primary Care Unavail able Mukkamalla OLS, Mahaveer Referring Unavail able Mukkamalla OLS, Mahaveer Attending Unavail able Mukkamalla OLS, Mahaveer Attending Unavail able Mukkamalla OLS, Mahaveer Attending Unavail able Mukkamalla OLS, Mahaveer Attending Unavail able Mukkamalla OLS, Mahaveer Primary Care Unavail able Alex Betancourt Referring Unavail able Randy Marks Attending Unavailable Alex Betancourt Primary Care Unavail able Medications Current Medications Medication Drug Class(es) Dates [...] oral tablet (20 sources) Dihydropyridine Calcium Channel Jnaes Start: 12-11-2024 End: 12-21-2025 take 1 tablet [...] (81 mg) by mouth daily. 30 tablet 11 03/02/2022 03/02/2023 Active Astragalus preparation (14 sources) take 1 mL by mouth three times daily ASTRAGALUS PO Take 1 mL by mouth 3 times daily. Active atorvastatin 40 mg oral tablet (20 sources) HMG-CoA Reductase Inhibitor Start: 2021 End: 2024 take 1 tablet by mouth once daily atorvastatin (Lipitor) 40 MG tablet Take 1 tablet (40 mg) by mouth Nightly. 30 tablet 11 03/02/2022 Active cholecalciferol, vitamin D3, (D3-5000 ORAL) [...] mg by mouth daily. Active epoetin miller 86179 unt/ml injectable solution (4 sources) Erythropoiesis-sti mulating Agent Start: 2024 take 61830 [IU] intravenously once daily 20,000 Units, intravenous, User specified (Once per day on Wednesday), First dose (after last modification) on Wed09/07/24 at 2100, Indications: ESRD on Dialysis Start: 09-06-2024 End: 09-06-2024 10,000 Units, intravenous, O nce, On Wed09/06/24 at 1330, For 1 dose, Please give today.. non-dialysis day..hgb 7.6, Indications: ESRD on Dialysis, anemia Start: 09-05-2024 End: 09-06-2024 take 56870 [IU] intravenously once daily 10,000 Units, intravenous, User specified (Once per day on Wednesday), First dose (after last modification) on Wed09/05/24 at 2100, Indications: ESRD on Dialysis Start: 09-02-2024 End: 09-04-2024 inject 64846 [IU] by subcutaneous injection once daily 10,000 [...] Oral, Nightly PRN, sleep, Starting on Diane 28/24 at 1108 NON FORMULARY (20 sources) take [...] tablet (4 sources) Serotonin-3 Receptor Antagonist Start: 3 End: 3 take 1 tablet by mouth every six [...] daily as needed (first line for agitation, [place] PRN Seroquel for ONLY if danger to self/others/treatment). 12/20/2024 01/19/2025 Active Start: 10-29-2024 End: 10-29-2024 sodium zirconium cyclosilicate 72122 mg powder for oral suspension (3 sources) [...] 5,000 Units, Oral, Daily, First dose on [facility] 02/19/24 at 09[address] once daily cholecalciferol (Vitamin D-3) 125 MCG [...] mg docusate sodium 50 mg / sennosides, intermediate 8.6 mg oral tablet (4 sources) Start: [...] needed, Starting on 01/24/24 at 1637, Intraprocedure ferrous sulfate 325 mg [...] on Wed01/25/24 at 1602, For 1 dose, Prabhakar, Matilde: cabinet override glucagon (rdna) 1 mg injection [...] End: 12-13-2024 0.5 ml heparin sodium, porcine 30178 unt/ml prefilled syringe (20 sources) Unfractionated Heparin, [...] day), First dose on 02/19/24 at 0900 1 ml HYDROmorphone hydrochloride [...] hour of the oral oxycodone, Starting on 11/12/24 at 1742, If oral and injectable narcotics ordered, use oral first and only use injectable if oral is ineffective or cannot take oral. Do Not give oral and injectable within 1 hour of each other unless specifically ordered. Start: 11-05-2024 End: 11-05-2024 Start: 11-05-2024 End: 11-05-2024 Start: 11-05-2024 End: 11-05-2024 Start: 11-02-2024 End: 11-02-2024 Start: 09-05-2024 take 1 tablet by ajit th every six hours as needed 1 mg, oral, Every 6 hours PRN, pain severe (7-10), first line, Starting on Tu09/05/24 at 0126, If ordered PRN for pain, [...] on Wed01/24/24 at 1719, For 1 dose iopamidol (Isovue-300) [...] over 15 Minutes, Daily, First dose on Wed01/20/24 at 0900 Start: 03-02-2022 End: 12-20-2024 linezolid [...] 02/19/24 at 0425, If Titrate Infusion? is "No": Disregard instructions below. If Titrate infusion? is "Yes": If rate LESS than 20 mcg/min: Titrate [...] for pain 5 mg, oral, Once, On [facility] 08/31/24 at 0200, For 1 dose, If [...] hours, First dose (after last modification) on [facility] 08/31/24 at 0200, premix bag, Dosing of this medication varies based on severity of illness. Does this patient have sepsis or concern for sepsis (probable or documented infection plus systemic manifestations of infection)? No, Suspected Indication (Select all that apply): Cellulitis, Skin and Soft Tissue, Indications: Cellulitis, Skin and Soft Tissue polyethylene glycol 3350 73627 mg powder for oral solution (18 sources) [...] in past 24 hours. polyethylene glycol 3350 384664 mg / potassium chloride 2970 mg / sodium bicarbonate 6740 mg / sodium chloride 5860 mg / sodium sulfate 29705 mg powder for oral solution (4 sources) [...] (2 times per day), First dose on Wed02/19/24 at 2315 Start: 02-19-2024 End: 02-20-2024 Start: [...] (2 times per day), First dose on [place] 01/23/24 at 1000, Preprocedure Start: 01-23-2024 End: 01-25-2024 take 100 mL intravenously every hour as needed, then take 20 mL intravenously every hour as needed 5-250 mL/hr, IntraVENous, PRN, if patient receiving piggyback infusions and maintenance fluids are not ordered OR KVO fluids to protect IV site / prevent frequent line interruptions/ long duration, Starting on [place] 01/23/24 at 0950, For piggyback infusion, administer [...] mL, IntraVENous, PRN, line care, Starting on [place] 01/23/24 at 0950, After every IV line [...] End: 06-29-2024 15 g, Oral, Once, On [place] 06/29/24 at 0910, For 1 dose, Empty [...] mouth daily. 0 Active Xeroform Petrolat Gauze 5"x9 external pad 1 each (2 sources) Start: 11-13-2024 End: 11-14-2024 1 each, Topical, Daily, Firs t dose on Wed11/13/24 at 1600, Apply to left buttock. (20 [...] Translations: [Other specified anemias] Onset: 4 Episodic Deficiency and other anemia (3 sources) Anemia, unspecified; Translations: [Anemia, unspecified] Onset: 4 Episodic Diseases of white blood [...] convulsions] Onset: 5 11-02-2024 Episodic Essential hypertension (5 sources) Hypertensive disorder; Translations: [Essential (primary) hypertension] [...] 11-11-2024 Episodic Other aftercare (2 sources) Other terminal gauger supervisor (current) drug therapy; Translations: [OTH AESTHETICS INSTRUCTOR CURRENT DRUG THERAPY] Onset: 5 Episodic Other [...] Translations: [PRESENCE ARTIFICIAL HIP JOINT BILAT] Onset: Chronic Other connective tissue disease (1 source) [...] conditions (1 source) Myoclonus; Translations: [Myoclonus] Onset: 5 Chronic Other injuries and conditions due to [...] unspecified body region, initial encounter] Onset: 5 Episodic Other injuries and conditions due to [...] alteration of awareness] Onset: 5 12-28-2024 Episodic Respiratory failure; insufficiency; arrest (adult) (1 [...] TOXIC ENCEPHALOPATHY; Translations: [OTHER TOXIC ENCEPHALOPATHY] Onset: Unclassified (1 source) ACIDOSIS UNSPECIFIED; Translations: [ACIDOSIS UNSPECIFIED] Onset: 5 Unclassified (1 source) PT NONCOMPL RENAL DIALYSIS OTH REAS; Translations: [PT NONCOMPL RENAL DIALYSIS OTH REAS] Onset: Unclassified (1 source) ENCOUNT FOR SCREENING FOR COVID-19; Translations: [ENCOUNT FOR SCREENING FOR COVID-19] Onset: 5 Unclassified (2 sources) Post-op; Translations: [Post-op] Onset: Viral infection (2 sources) COVID-19; Translations: [COVID-19] Onset: 5 Past or Other Problems Problem Classification Problem Date Documented Da te Episodic/Chronic Deficiency and other anemia (20 sources) Anemia; Translations: [Anemia, unspecified] Onset: 4 01-23-2024 Episodic E Codes: Adverse effects of medical [...] neoplasm of breast] Onset: 5 01-12-2023 Episodic Residual codes; unclassified (2 sources) Localized edema; Translations: [Localized edema] Onset: Episodic Respiratory failure; insufficiency; arrest (adult) (3 [...] Test Name Value Interpretation Reference Range Facility Basic Metabolic Profile (BMP )on 01-09-2025 BUN/CRE 10.2 RATIO Normal 10-20 [facility] Comment on above: Order Comment: 407.2 Performed By: #### L 100.0500, L500.2500 #### [facility] [address] [place], [address] Calcium [Mass/Vol] 8.2 mg/dL Normal 7.6-11.0 [facility] Comment on above: Order Comment: 407.2 Performed By: #### L 100.0500, L500.2500 #### [facility] [address] [place], [address] Chloride [Moles/Vol] 102 mmol/L Normal 98-108 [facility] Comment on above: Order Comment: 407.2 Performed By: #### L 100.0500, L500.2500 #### [facility] [address] [place], [address] CO2 [Moles/Vol] 28.4 mmol/L Normal 21.0-32.0 [facility] Comment on above: Order Comment: 407.2 Performed By: #### L 100.0500, L500.2500 #### [facility] [address] [place], [address] Creatinine [Mass/Vol] 4.00 mg/dL High 0.70-1.20 [facility] Comment on above: Order Comment: 407.2 Performed By: #### L 100.0500, L500.2500 #### [facility] [address] [place], [address] GAP 11 Normal 5-15 [facility] Comment on above: Order Comment: 407.2 Performed By: #### L 100.0500, L500.2500 #### [facility] [address] [place], [address] GFR/1.73 sq M.predicted among non-blacks MDRD (S/P/Bld) [Vol rate/Area] 11 mL/min/{1.73_m2} Low >60 [facility] Comment on above: Order Comment: 407.2 Result Comment: mL/m in/1.73m2 CKD-EPI Creatinine Equation (2020) Performed By: #### L 100.0500, L500.2500 #### [facility] [address] [place], [address] Glucose [Mass/Vol] 76 mg/dL Normal 70-99 [facility] Comment on above: Order Comment: 407.2 Performed By: #### L 100.0500, L500.2500 #### [facility] [address] [place], [address] Potassium [Moles/Vol] 4.4 mmol/L Normal 3.3-5.1 [facility] Comment on above: Order Comment: 407.2 Performed By: #### L 100.0500, L500.2500 #### [facility] [address] [place], [address] Sodium [Moles/Vol] 142 mmol/L Normal 133-145 [facility] Comment on above: Order Comment: 407.2 Performed By: #### L 100.0500, L500.2500 #### [facility] [address] [place], [address] Urea nitrogen [Mass/Vol] 41 mg/dL High 4-19 [facility] Comment on above: Order Comment: 407.2 Performed By: #### L 100.0500, L500.2500 #### [facility] [address] [place], [address] Basic Metabolic Profile (BMP )on 01-08-2025 BUN Normal 4-19 [facility] Comment on above: Order Comment: 407.2 Result Comment: UTO X2 Performed By: #### L 100.0500, L500.2500 #### [facility] [address] [place], [address] BUN/CRE Normal 10-20 [facility] Comment on above: Order Comment: 407.2 Result Comment: UTO X2 Performed By: #### L 100.0500, L500.2500 #### [facility] [address] [place], [address] Calcium Normal 7.6-11.0 [facility] Comment on above: Order Comment: 407.2 Result Comment: UTO X2 Performed By: #### L 100.0500, L500.2500 #### [facility] [address] [place], [address] CL Normal 98-108 [facility] Comment on above: Order Comment: 407.2 Result Comment: UTO X2 Performed By: #### L 100.0500, L500.2500 #### [facility] [address] [place], [address] CO2 Normal 21.0-32.0 [facility] Comment on above: Order Comment: 407.2 Result Comment: UTO X2 Performed By: #### L 100.0500, L500.2500 #### [facility] [address] [place], [address] CREAT,SERUM Normal 0.70-1.20 [facility] Comment on above: Order Comment: 407.2 Result Comment: UTO X2 Performed By: #### L 100.0500, L500.2500 #### [facility] [address] [place], [address] eGFR Normal >60 [facility] Comment on above: Order Comment: 407.2 Result Comment: UTO X2 Performed By: #### L 100.0500, L500.2500 #### [facility] [address] [place], [address] GAP Normal 5-15 [facility] Comment on above: Order Comment: 407.2 Result Comment: UTO X2 Performed By: #### L 100.0500, L500.2500 #### [facility] [address] [place], [address] GLU Normal 70-99 [facility] Comment on above: Order Comment: 407.2 Result Comment: UTO X2 Performed By: #### L 100.0500, L500.2500 #### [facility] [address] [place], [address] Potassium Normal 3.3-5.1 [facility] Comment on above: Order Comment: 407.2 Result Comment: UTO X2 Performed By: #### L 100.0500, L500.2500 #### [facility] [address] [place], [address] Basic Metabolic Profile (BMP) Normal 133-145 [facility] Comment on above: Order Comment: 407.2 Result Comment: UTO X2 Performed By: #### L 100.0500, L500.2500 #### [facility] [address] [place], [address] CPK Total, Creatine Kinaseon 01-05-2025 CPK TOTAL 39 U/L Normal 24-195 [facility] Comment on above: Order Comment: 407-2 Performed By: #### L 501.3620, L500.4050, L500.4100 #### [facility] [address] [place], [address] Comprehensive Metabolic Prof ilon 01-05-2025 Albumin [Mass/Vol] 2.0 g/dL Low 3.4-4.8 [facility] Comment on above: Order Comment: 407-2 Performed By: #### L 501.3620, L500.4050, L500.4100 #### [facility] [address] [place], [address] Albumin/Globulin [Mass ratio] 0.5 {ratio} Low 0.9-2.4 [facility] Comment on above: Order Comment: 407-2 Performed By: #### L 501.3620, L500.4050, L500.4100 #### [facility] [address] [place], [address] ALK PHOS 271 U/L High 35-104 [facility] Comment on above: Order Comment: 407-2 Performed By: #### L 501.3620, L500.4050, L500.4100 #### [facility] [address] [place], [address] ALT [Catalytic activity/Vol] 17 U/L Normal <=34 [facility] Comment on above: Order Comment: 407-2 Performed By: #### L 501.3620, L500.4050, L500.4100 #### [facility] [address] [place], [address] AST [Catalytic activity/Vol] 44 U/L High <=31 [facility] Comment on above: Order Comment: 407-2 Performed By: #### L 501.3620, L500.4050, L500.4100 #### [facility] [address] [place], [address] Bilirubin [Mass/Vol] 0.27 mg/dL Normal 0.00-1.30 [facility] Comment on above: Order Comment: 407-2 Performed By: #### L 501.3620, L500.4050, L500.4100 #### [facility] [address] [place], [address] BUN/CRE 8.4 RATIO Low 10-20 [facility] Comment on above: Order Comment: 407-2 Performed By: #### L 501.3620, L500.4050, L500.4100 #### [facility] [address] [place], [address] Calcium [Mass/Vol] 7.8 mg/dL Normal 7.6-11.0 [facility] Comment on above: Order Comment: 407-2 Performed By: #### L 501.3620, L500.4050, L500.4100 #### [facility] [address] [place], [address] Chloride [Moles/Vol] 97 mmol/L Low 98-108 [facility] Comment on above: Order Comment: 407-2 Performed By: #### L 501.3620, L500.4050, L500.4100 #### [facility] [address] [place], [address] CO2 [Moles/Vol] 30.5 mmol/L Normal 21.0-32.0 [facility] Comment on above: Order Comment: 407-2 Performed By: #### L 501.3620, L500.4050, L500.4100 #### [facility] [address] [place], [address] Creatinine [Mass/Vol] 2.94 mg/dL High 0.70-1.20 [facility] Comment on above: Order Comment: 407-2 Performed By: #### L 501.3620, L500.4050, L500.4100 #### [facility] [address] [place], [address] GAP 9 Normal 5-15 [facility] Comment on above: Order Comment: 407-2 Performed By: #### L 501.3620, L500.4050, L500.4100 #### [facility] [address] [place], [address] GFR/1.73 sq M.predicted among non-blacks MDRD (S/P/Bld) [Vol rate/Area] 16 mL/min/{1.73_m2} Low >60 [facility] Comment on above: Order Comment: 407-2 Result Comment: mL/m in/1.73m2 CKD-EPI Creatinine Equation (2020) Performed By: #### L 501.3620, L500.4050, L500.4100 #### [facility] [address] [place], [address] Globulin (S) [Mass/Vol] 3.6 g/dL Normal 2.2-4.2 [facility] Comment on above: Order Comment: 407-2 Performed By: #### L 501.3620, L500.4050, L500.4100 #### [facility] [address] [place], [address] Glucose [Mass/Vol] 68 mg/dL Low 70-99 [facility] Comment on above: Order Comment: 407-2 Performed By: #### L 501.3620, L500.4050, L500.4100 #### [facility] [address] [place], [address] Potassium [Moles/Vol] 2.9 mmol/L Low 3.3-5.1 [facility] Comment on above: Order Comment: 407-2 Performed By: #### L 501.3620, L500.4050, L500.4100 #### [facility] [address] [place], [address] Sodium [Moles/Vol] 137 mmol/L Normal 133-145 [facility] Comment on above: Order Comment: 407-2 Performed By: #### L 501.3620, L500.4050, L500.4100 #### [facility] [address] [place], [address] T PROT 5.6 g/dL Low 5.9-8.4 [facility] Comment on above: Order Comment: 407-2 Performed By: #### L 501.3620, L500.4050, L500.4100 #### [facility] [address] [place], [address] Urea nitrogen [Mass/Vol] 25 mg/dL High 4-19 [facility] Comment on above: Order Comment: 407-2 Performed By: #### L 501.3620, L500.4050, L500.4100 #### [facility] [address] [place], [address] Lipid Profileon 01-05-2025 CHOL:HDL 2.38 Normal [facility] Comment on above: Order Comment: 407-2 Performed By: #### L 501.3620, L500.4050, L500.4100 #### [facility] [address] [place], [address] Cholesterol [Mass/Vol] 106 mg/dL Normal <=200 [facility] Comment on above: Order Comment: 407-2 Result Comment: Chol esterol level, Desirable <200 mg/dL Borderline high cholesterol 200-239 mg/dL High cholesterol >=240 mg/dL Recommendations of the NCEP Adult Treatment Panel for the following risk-cutoff thresholds for the [place] population. Performed By: #### L 501.3620, L500.4050, L500.4100 #### [facility] [address] [place], [address] Cholesterol in HDL [Mass/Vol] 45 mg/dL Normal [facility] Comment on above: Order Comment: 407-2 Result Comment: Bri onal Cholesterol Education Program (NCEP) guidelines: <40 mg/dL: Low HDL-cholesterol (major risk factor for CHD) >= 60 mg/dL: High HDL-cholesterol (negative risk factor for CHD) HDL-cholesterol is affected by a number of factors, e.g. smoking, exercise, hormones, sex and age. Performed By: #### L 501.3620, L500.4050, L500.4100 #### [facility] [address] [place], [address] Cholesterol in LDL [Mass/Vol] 50 mg/dL Normal [facility] Comment on above: Order Comment: 407-2 Result Comment: Bord xhfnbp=551-903 mg/dL Higher Lbze=246 mg/dL or greater Friedwald Equation for LDL-C Performed By: #### L 501.3620, L500.4050, L500.4100 #### [facility] [address] [place], [address] Cholesterol in VLDL [Mass/Vol] 12 mg/dL Normal 5-40 [facility] Comment on above: Order Comment: 407-2 Performed By: #### L 501.3620, L500.4050, L500.4100 #### [facility] [address] [place], [address] Triglyceride [Mass/Vol] 58 mg/dL Normal [facility] Comment on above: Order Comment: 407-2 Result Comment: The drugs N-Acetylcysteine and Metamizole may falsely depress this assay. Normal range: <150 mg/dL Borderline High: 150-199 mg/dL High: 200-499 mg/dL Very High: >500 mg/dL Performed By: #### L 501.3620, L500.4050, L500.4100 #### [facility] [address] [place], [address] ED Nursing Noteon 12-28-2024 ED Nursing Note Normal [facility] ED Provider Noteon ED Provider Note Normal [facility] Laboratory - Chemistry and C hemistry - challengeon 12-28-2024 Glucose [Mass/Vol] 80 mg/dL 70 - 100 mg/dL [facility] No Panel Informationon 12-28 Interpretation and review of laboratory results Normal [facility] Performed by: Santa Kirk, [address] [place], [place] [address] [address] CLIA ID: [id number] [facility] Basic Metabolic Profile (BMP )on 12-25-2024 CO2 [Moles/Vol] 24.2 mmol/L Normal 21.0-32.0 [facility] Comment on above: Result Comment: AMENDED REPORT 12/25/24 1007 CO2 previously reported as: 24.1 mmol/L Performed By: #### L 100.0500, L500.2500 #### [facility] [address] [place], [address] GAP 14 Normal 5-15 [facility] Comment on above: Performed By: #### L 100.0500, L500.2500 #### [facility] [address] [place], [address] CBC-Complete Blood Cnt No Di ffon 12-25-2024 Erythrocyte distribution width (RBC) [Ratio] 17.0 % High 11.6-14.6 [facility] Comment on above: Performed By: #### L 100.0500, L500.2500 #### [facility] [address] [place], [address] Hematocrit (Bld) [Volume fraction] 26.1 % Low 37-47 [facility] Comment on above: Performed By: #### L 100.0500, L500.2500 #### [facility] [address] [place], [address] Hemoglobin (Bld) [Mass/Vol] 8.5 g/dL Low 12.0-15.0 [facility] Comment on above: Performed By: #### L 100.0500, L500.2500 #### [facility] [address] [place], [address] MCH (RBC) [Entitic mass] 31.5 pg Normal 27.0-32.0 [facility] Comment on above: Performed By: #### L 100.0500, L500.2500 #### [facility] [address] [place], [address] MCHC (RBC) [Mass/Vol] 32.6 g/dL Normal 32-36 [facility] Comment on above: Performed By: #### L 100.0500, L500.2500 #### [facility] [address] [place], [address] MCV (RBC) [Entitic vol] 96.7 fL Normal 81-99 [facility] Comment on above: Performed By: #### L 100.0500, L500.2500 #### [facility] [address] [place], [address] Platelet mean volume (Bld) [Entitic vol] 10.9 fL Normal 6.2-12.0 [facility] Comment on above: Performed By: #### L 100.0500, L500.2500 #### [facility] [address] [place], [address] Platelets (Bld) [#/Vol] 435 10*3/uL Normal 150-450 [facility] Comment on above: Performed By: #### L 100.0500, L500.2500 #### [facility] [address] [place], [address] RBC (Bld) [#/Vol] 2.70 10*6/uL Low 4.2-5.4 [facility] Comment on above: Performed By: #### L 100.0500, L500.2500 #### [facility] [address] [place], [address] RDW SD 58.0 fl High 35.1-43.9 [facility] Comment on above: Performed By: #### L 100.0500, L500.2500 #### [facility] [address] [place], [address] WBC (Bld) [#/Vol] 11.2 10*3/uL High 4.4-11.0 [facility] Comment on above: Performed By: #### L 100.0500, L500.2500 #### [facility] [address] [place], [address] [id number] 12-20-2024 [id number] Transportation confirmed for 630. Called and spoke to brothzamzam Hses with update on time of discharge. RN and hospital unit coordinator notified via secure chat. [facility] [phone] Discharge med list transmitted to [facility] via [facility] per TCC request. [facility] [phone] [facility] [phone] Discharge order note d in epic. 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 [facility] CBC (HEMOGRAM)on 12-20-2024 Erythrocyte distribution width (RBC) [Ratio] 15.9 % High 11.5-15.[address] [facility] Comment on above: Performed By: #### L AB294 ####Conservation Coordinator: PHILLY FRANCO ([phone])[address] Hematocrit (Bld) [Volume fraction] 20.9 % Low 35.0-47.[address] [facility] Comment on above: Performed By: #### L AB294 ####Conservation Coordinator: PHILLY FRANCO ([phone])[address] Hemoglobin (Bld) [Mass/Vol] 7.1 g/dL Low 11.7-16.[address] [facility] Comment on above: Performed By: #### L AB294 ####Conservation Coordinator: PHILLY FRANCO ([phone])[address] MCH (RBC) [Entitic mass] 31.4 pg Normal 26.0-34.[address] [facility] Comment on above: Performed By: #### L AB294 ####Conservation Coordinator: PHILLY [phone])[facility] ([facility])[address] [place] [address] MCHC 34.0 % Normal 30.5-36.0 [facility] Comment on above: Performed By: #### L AB294 ####Conservation Coordinator: PHILLY FRANCO ([phone])[facility] ([facility])[address] [place] [address] MCV (RBC) [Entitic vol] 92.5 fL Normal 77.0-99.0 [facility] Comment on above: Performed By: #### L AB294 ####Conservation Coordinator: PHILLY FRANCO ([phone])[facility] ([facility])[address] [place] [address] Platelet mean volume (Bld) [Entitic vol] 10.8 fL Normal 9.0-12.[address] [facility] Comment on above: Performed By: #### L AB294 ####Conservation Coordinator: PHILLY FRANCO ([phone])[facility] ([facility])[address] [place] [address] Platelets (Bld) [#/Vol] 237 10*3/uL Normal 140-[address] [facility] Comment on above: Performed By: #### L [id number] ####Conservation Coordinator: PHILLY FRANCO ([phone])[facility] ([facility])[address] [place] [address] RBC (Bld) [#/Vol] 2.26 10*6/uL Low 3.80-5.20 [facility] Comment on above: Performed By: #### L AB294 ####Conservation Coordinator: PHILLY FRANCO ([phone])[facility] ([facility])[address] [place] [address] WBC (Bld) [#/Vol] 12.1 10*3/uL High 3.6-10.[address] [facility] Comment on above: Performed By: #### L [id number] ####Conservation Coordinator: PHILLY FRANCO ([phone])[facility] ([facility])[address] [place] [address] CBC panel Auto (Bld)on 12-20 Erythrocyte distribution width (RBC) [Ratio] 15.9 % High 11.5 - 15.0 % [facility] Hematocrit (Bld) [Volume fraction] 20.9 % Low 35.0 - 47.0 % [facility] Hemoglobin (Bld) [Mass/Vol] 7.1 g/dL Low 11.7 - 16.0 g/dL [facility] Interpretation and review of laboratory results Abnormal [facility] MCH (RBC) [Entitic mass] 31.4 pg 26.0 - 34.0 pg [facility] MCHC (RBC) [Mass/Vol] 34 % 30.5 - 36.0 % [facility] MCV (RBC) [Entitic vol] 92.5 fL 77.0 - 99.0 fL [facility] Platelet mean volume (Bld) [Entitic vol] 10.8 fL 9.0 - 12.7 fL [facility] Platelets (Bld) [#/Vol] 237 10*3/uL 140 - 440 10*3/uL [facility] RBC (Bld) [#/Vol] 2.26 10*6/uL Low 3.80 - 5.2 0 10*6/uL [facility] WBC (Bld) [#/Vol] 12.1 10*3/uL High 3.6 - 10.7 10*3/uL [facility] COMPREHENSIVE METABOLIC PANE Fam 12-20-2024 Albumin [Mass/Vol] 1.1 g/dL Low 3.4-4.8 [facility] Comment on above: Performed By: #### L AB17 ####Conservation Coordinator: PHILLY FRANCO ([phone])[facility] [place] [address] ALP [Catalytic activity/Vol] 155 U/L High 40-150 [facility] Comment on above: Performed By: #### L AB17 ####Conservation Coordinator: PHILLY FRANCO ([phone])[facility] ([facility])[address] [place] [address] ALT [Catalytic activity/Vol] U/L Normal <30 [facility] Comment on above: Performed By: #### L AB17 ####Conservation Coordinator: PHILLY FRANCO ([phone])[facility] ([facility])[address] [place] [address] Anion gap [Moles/Vol] 7 mmol/L Normal 3-13 [facility] Comment on above: Performed By: #### L AB17 ####Conservation Coordinator: PHILLY FRANCO ([phone])[facility])[address] [place] [address] AST [Catalytic activity/Vol] 57 U/L High <[address] [facility] Comment on above: Result Comment: TCPo tential interference from hemolysis Performed By: #### L AB17 ####Conservation Coordinator: PHILLY FRANCO ([phone])[facility])[address] [place] [address] Bilirubin [Mass/Vol] 0.6 mg/dL Normal <1.2 [facility] Comment on above: Performed By: #### L AB17 ####Conservation Coordinator: PHILLY FRANCO ([phone])[facility] ([facility])[address] [place] [address] Calcium [Mass/Vol] 6.5 mg/dL Low 8.8-10.[address] [facility] Comment on above: Performed By: #### L AB17 ####Conservation Coordinator: PHILLY FRANCO ([phone])[facility] ([facility])[address] [place] [address] [place] Chloride [Moles/Vol] 106 mmol/L Normal 98-107 [facility] Comment on above: Performed By: #### L AB17 ####Conservation Coordinator: PHILLY FRANCO ([phone])[facility] ([facility])[address] [place] [address] [place] CO2 [Moles/Vol] 21 mmol/L Low 23-[address] [facility] Comment on above: Performed By: #### L AB17 ####Conservation Coordinator: PHILLY FRANCO ([phone])[facility])[address] [place] [address] Creatinine [Mass/Vol] 2.84 mg/dL High 0.57-1.11 [facility] Comment on above: Performed By: #### L AB17 ####Conservation Coordinator: PHILLY FRANCO ([phone])[facility])[address] [place] [address] GLOMERULAR FILTRATION RATE ML/MIN/1.73 SQ M.PREDICTED 16.9 mL/min/1.73m*2 Low >60.[address] [facility] Comment on above: Result Comment: Calc ulation based on the Chronic Kidney Disease Epidemiology Collaboration (CKD-EPI) equation refit without adjustment for race Performed By: #### L AB17 ####Conservation Coordinator: PHILLY FRANCO ([phone])[facility])[address] [place] [address] Glucose [Mass/Vol] 72 mg/dL Low 82-[address] [facility] Comment on above: Performed By: #### L AB17 ####Conservation Coordinator: PHILLY FRANCO ([phone])[address] Potassium [Moles/Vol] 4.3 mmol/L Normal 3.5-5.1 [facility] Comment on above: Result Comment: [facility] potassium values may be up to 0.5 mmol/L lower than serum values. Performed By: #### L AB17 ####Conservation Coordinator: PHILLY FRANCO ([phone])[address] Protein [Mass/Vol] 5.1 g/dL Low 6.4-8.[address] [facility] Comment on above: Performed By: #### L AB17 ####Conservation Coordinator: PHILLY FRANCO ([phone])[facility])[address] [place] [address] Sodium [Moles/Vol] 134 mmol/L Low 136-[address] [facility] Comment on above: Performed By: #### L AB17 ####Conservation Coordinator: PHILLY FRANCO ([phone])[facility])[address] [place] [address] Urea nitrogen [Mass/Vol] 15 mg/dL Normal 9-23 [facility] Comment on above: Performed By: #### L AB17 ####Conservation Coordinator: PHILLY FRANCO ([phone])[facility] ([facility])[address] [place] [address] Comprehensive metabolic 1998 panelon 12-20-2024 Albumin [Mass/Vol] 1.1 g/dL Low 3.4 - 4.8 g/dL [facility] ALP [Catalytic activity/Vol] 155 U/L High 40 - 150 U/L [facility] ALT [Catalytic activity/Vol] U/L NINF - 30 U/L [facility] Anion gap [Moles/Vol] 7 mmol/L 3 - 13 mmol/L [facility] AST [Catalytic activity/Vol] 57 U/L High NINF - 34 U/L [facility] Bilirubin [Mass/Vol] 0.6 mg/dL NINF - 1.2 mg/dL [facility] Calcium [Mass/Vol] 6.5 mg/dL Low 8.8 - 10. 0 mg/dL [facility] Chloride [Moles/Vol] 106 mmol/L 98 - 10 7 mmol/L [facility] CO2 [Moles/Vol] 21 mmol/L Low 23 - 31 mmol/L [facility] Creatinine [Mass/Vol] 2.84 mg/dL High 0.57 - 1.11 mg/dL [facility] GFR/1.73 sq M.predicted (S/P/Bld) [Vol rate/Area] 16.9 mL/min Low - PINF [facility] Glucose [Mass/Vol] 72 mg/dL Low 82 - 115 mg/dL [facility] Interpretation and review of laboratory results Abnormal [facility] Potassium [Moles/Vol] 4.3 mmol/L 3.5 - 5.1 mmol/L [facility] Protein [Mass/Vol] 5.1 g/dL Low 6.4 - 8.3 g/dL [facility] Sodium [Moles/Vol] 134 mmol/L Low 136 - 145 mmol/L [facility] Urea nitrogen [Mass/Vol] 15 mg/dL 9 - 23 mg/dL [facility] Laboratory - Chemistry and C hemistry - challengeon 12-20-2024 Glucose [Mass/Vol] 72 mg/dL 70 - 100 mg/dL [facility] Glucose [Mass/Vol] 73 mg/dL 70 - 100 mg/dL [facility] Glucose [Mass/Vol] 88 mg/dL 70 - 100 mg/dL [facility] No Panel Informationon 12-20 Interpretation and review of laboratory results Normal [facility] Interpretation and review of laboratory results Normal [facility] Interpretation and review of laboratory results Normal [facility] Nursing Noteon 12-20-2024 Nursing Note Attempted to call report to [facility]. No answer. Normal [facility] Nursing Note Discharge order placed. IVS removed. Transport here to take pt to SNF. Normal [facility] Nursing Note Normal [facility] Progress Noteon 12-20-2024 Progress Note Normal [facility] Progress Note Normal [facility] Progress Note Normal [facility] Progress Note Normal [facility] CBC (HEMOGRAM)on 12-19-2024 Erythrocyte distribution width (RBC) [Ratio] 15.5 % High 11.5-15.[address] [facility] Comment on above: Performed By: #### L [id number] ####Conservation Coordinator: PHILLY FRANCO ([phone])[address] Hematocrit (Bld) [Volume fraction] 23.6 % Low 35.0-47.[address] [facility] Comment on above: Performed By: #### L [id number] ####Conservation Coordinator: PHILLY FRANCO ([phone])[facility])[address] [place] [address] Hemoglobin (Bld) [Mass/Vol] 8.2 g/dL Low 11.7-16.[address] [facility] Comment on above: Performed By: #### L [id number] ####Conservation Coordinator: PHILLY FRANCO ([phone])[address] MCH (RBC) [Entitic mass] 30.9 pg Normal 26.0-34.[address] [facility] Comment on above: Performed By: #### L [id number] ####Conservation Coordinator: PHILLY FRANCO ([phone])[facility] ([facility])[address] [place] [address] MCHC 34.7 % Normal 30.5-36.[address] [facility] Comment on above: Performed By: #### L [id number] ####Conservation Coordinator: PHILLY FRANCO ([phone])[facility] ([facility])[address] [place] [address] MCV (RBC) [Entitic vol] 89.1 fL Normal 77.0-99.0 [facility] Comment on above: Performed By: #### L [id number] ####Conservation Coordinator: PHILLY FRANCO ([phone])[facility])[address] [place] [address] Platelet mean volume (Bld) [Entitic vol] 10.7 fL Normal 9.0-12.[address] [facility] Comment on above: Performed By: #### L [id number] ####Conservation Coordinator: PHILLY FRANCO ([phone])[facility] ([facility])[address] [place] [address] Platelets (Bld) [#/Vol] 274 10*3/uL Normal 140-[address] [facility] Comment on above: Performed By: #### L [id number] ####Conservation Coordinator: PHILLY FRANCO ([phone])[facility])[address] [place] [address] RBC (Bld) [#/Vol] 2.65 10*6/uL Low 3.80-5.20 [facility] Comment on above: Performed By: #### L [id number] ####Conservation Coordinator: PHILLY FRANCO ([phone])[facility])[address] [place] [address] WBC (Bld) [#/Vol] 15.7 10*3/uL High 3.6-10.7 [facility] Comment on above: Performed By: #### L [id number] ####Conservation Coordinator: PHILLY FRANCO ([phone])[facility] ([facility])[address] [place] [address] CBC panel Auto (Bld)on 12-19 Erythrocyte distribution width (RBC) [Ratio] 15.5 % High 11.5 - 15.0 % [facility] Hematocrit (Bld) [Volume fraction] 23.6 % Low 35.0 - 47.0 % [facility] Hemoglobin (Bld) [Mass/Vol] 8.2 g/dL Low 11.7 - 16.0 g/dL [facility] Interpretation and review of laboratory results Abnormal [facility] MCH (RBC) [Entitic mass] 30.9 pg 26.0 - 34.0 pg [facility] MCHC (RBC) [Mass/Vol] 34.7 % 30.5 - 36.0 % [facility] MCV (RBC) [Entitic vol] 89.1 fL 77.0 - 99.0 fL [facility] Platelet mean volume (Bld) [Entitic vol] 10.7 fL 9.0 - 12.7 fL [facility] Platelets (Bld) [#/Vol] 274 10*3/uL 140 - 440 10*3/uL [facility] RBC (Bld) [#/Vol] 2.65 10*6/uL Low 3.80 - 5.2 0 10*6/uL [facility] WBC (Bld) [#/Vol] 15.7 10*3/uL High 3.6 - 10.7 10*3/uL [facility] COMPREHENSIVE METABOLIC PANE Fam 12-19-2024 Albumin [Mass/Vol] 1.2 g/dL Low 3.4-4.[address] [facility] Comment on above: Performed By: #### L AB17 ####Conservation Coordinator: PHILLY FRANCO ([phone])[facility] [place] [address] ALP [Catalytic activity/Vol] 144 U/L Normal 40-[address] [facility] Comment on above: Performed By: #### L AB17 ####Conservation Coordinator: PHILLY FRANCO ([phone])[facility] [place] [address] ALT [Catalytic activity/Vol] U/L Normal <30 [facility] Comment on above: Performed By: #### L AB17 ####Conservation Coordinator: PHILLY FRANCO ([phone])[facility] ([facility])[address] [place] [address] Anion gap [Moles/Vol] 8 mmol/L Normal 3-13 [facility] Comment on above: Performed By: #### L AB17 ####Conservation Coordinator: PHILLY FRANCO ([phone])[facility] ([facility])[address] [place] [address] AST [Catalytic activity/Vol] 49 U/L High <34 [facility] Comment on above: Performed By: #### L AB17 ####Conservation Coordinator: PHILLY FRANCO ([phone])[facility] ([facility])[address] [place] [address] Bilirubin [Mass/Vol] 0.5 mg/dL Normal <1.2 [facility] Comment on above: Performed By: #### L AB17 ####Conservation Coordinator: PHILLY FRANCO ([phone])[facility] ([facility])[address] [place] [address] Calcium [Mass/Vol] 7.3 mg/dL Low 8.8-10.0 [facility] Comment on above: Performed By: #### L AB17 ####Conservation Coordinator: PHILLY FRANCO ([phone])[facility] ([facility])[address] [place] [address] [place] Chloride [Moles/Vol] 102 mmol/L Normal 98-107 [facility] Comment on above: Performed By: #### L AB17 ####Conservation Coordinator: PHILLY FRANCO ([phone])[facility] ([facility])[address] [place] [address] [place] CO2 [Moles/Vol] 25 mmol/L Normal 23-31 [facility] Comment on above: Performed By: #### L AB17 ####Conservation Coordinator: PHILLY FRANCO ([phone])[facility] ([facility])[address] [place] [address] [place] Creatinine [Mass/Vol] 2.25 mg/dL High 0.57-1.11 [facility] Comment on above: Performed By: #### L AB17 ####Conservation Coordinator: PHILLY FRANCO ([phone])[facility])[address] [place] [address] GLOMERULAR FILTRATION RATE ML/MIN/1.73 SQ M.PREDICTED 22.4 mL/min/1.73m*2 Low >60.[address] [facility] Comment on above: Result Comment: Calc ulation based on the Chronic Kidney Disease Epidemiology Collaboration (CKD-EPI) equation refit without adjustment for race Performed By: #### L AB17 ####Conservation Coordinator: PHILLY FRANCO ([phone])[facility])[address] [place] [address] Glucose [Mass/Vol] 73 mg/dL Low 82-[address] [facility] Comment on above: Performed By: #### L AB17 ####Conservation Coordinator: PHILLY FRANCO ([phone])[address] Potassium [Moles/Vol] 3.9 mmol/L Normal 3.5-5.1 [facility] Comment on above: Result Comment: [facility] potassium values may be up to 0.5 mmol/L lower than serum values. Performed By: #### L AB17 ####Conservation Coordinator: PHILLY FRANCO ([phone])[facility])[address] [place] [address] Protein [Mass/Vol] 5.3 g/dL Low 6.4-8.[address] [facility] Comment on above: Performed By: #### L AB17 ####Conservation Coordinator: PHILLY FRANCO ([phone])[address] Sodium [Moles/Vol] 135 mmol/L Low 136-[address] [facility] Comment on above: Performed By: #### L AB17 ####Conservation Coordinator: PHILLY [phone])[facility])[address] [place] [address] Urea nitrogen [Mass/Vol] 11 mg/dL Normal 9-23 [facility] Comment on above: Performed By: #### L AB17 ####Conservation Coordinator: PHILLY FRANCO ([phone])[facility] ([facility])[address] [place] [address] Comprehensive metabolic 1998 panelOrdered By: Mak Hobbs on 12-19-2024 Albumin [Mass/Vol] 1.2 g/dL Low 3.4 - 4.8 g/dL [facility] ALP [Catalytic activity/Vol] 144 U/L 40 - 150 U/L [facility] ALT [Catalytic activity/Vol] U/L NINF - 30 U/L [facility] Anion gap [Moles/Vol] 8 mmol/L 3 - 13 mmol/L [facility] AST [Catalytic activity/Vol] 49 U/L High NINF - 34 U/L [facility] Bilirubin [Mass/Vol] 0.5 mg/dL NINF - 1.2 mg/dL [facility] Calcium [Mass/Vol] 7.3 mg/dL Low 8.8 - 10. 0 mg/dL [facility] Chloride [Moles/Vol] 102 mmol/L 98 - 10 7 mmol/L [facility] CO2 [Moles/Vol] 25 mmol/L 23 - 31 mmol/L [facility] Creatinine [Mass/Vol] 2.25 mg/dL High 0.57 - 1.11 mg/dL [facility] GFR/1.73 sq M.predicted (S/P/Bld) [Vol rate/Area] 22.4 mL/min Low - PINF [facility] Glucose [Mass/Vol] 73 mg/dL Low 82 - 115 mg/dL [facility] Interpretation and review of laboratory results Abnormal [facility] Potassium [Moles/Vol] 3.9 mmol/L 3.5 - 5.1 mmol/L [facility] Protein [Mass/Vol] 5.3 g/dL Low 6.4 - 8.3 g/dL [facility] Sodium [Moles/Vol] 135 mmol/L Low 136 - 145 mmol/L [facility] Urea nitrogen [Mass/Vol] 11 mg/dL 9 - 23 mg/dL [facility] HEMOGLOBIN AND HEMATOCRIT, B LOODon 12-19-2024 Hematocrit (Bld) [Volume fraction] 24.0 % Low 35.0-47.0 [facility] Comment on above: Performed By: #### L [id number] ####Conservation Coordinator: PHILLY FRANCO ([phone])[facility] ([facility])[address] [place] [address] Hemoglobin (Bld) [Mass/Vol] 8.1 g/dL Low 11.7-16.0 [facility] Comment on above: Performed By: #### L [id number] ####Conservation Coordinator: PHILLY FRANCO ([phone])[facility] ([facility])[address] [place] [address] Hemoglobin (Bld) [Mass/Vol]o n 12-19-2024 Hematocrit (Bld) [Volume fraction] 24 % Low 35.0 - 47.0 % [facility] Interpretation and review of laboratory results Abnormal [facility] Laboratory - Chemistry and C hemistry - challengeon 12-19-2024 Glucose [Mass/Vol] 84 mg/dL 70 - 100 mg/dL [facility] Glucose [Mass/Vol] 57 mg/dL Low 70 - 100 mg/dL [facility] Glucose [Mass/Vol] 67 mg/dL Low 70 - 100 mg/dL [facility] Laboratory - Hematology and Cell countson 12-19-2024 Hemoglobin (Bld) [Mass/Vol] 8.1 g/dL Low 11.7 - 16.0 g/dL [facility] No Panel Informationon 12-19 Interpretation and review of laboratory results Normal [facility] Interpretation and review of laboratory results Abnormal [facility] Interpretation and review of laboratory results Abnormal [facility] Nursing Noteon 12-19-2024 Nursing Note Normal [facility] Progress Noteon 12-19-2024 Progress Note Normal [facility] Progress Note Normal [facility] Progress Note Normal [facility] Progress Note Normal [facility] Progress Note Normal [facility] Progress Note Normal [facility] Progress Note Normal [facility] Progress Note Normal [facility] [id number] 12-18-2024 [id number] Normal [facility] [id number] 12-18-[id number] [facility] Anesthesia Noteon 12-18-2024 Anesthesia Note Normal [facility] Anesthesia Note Normal [facility] CBC (HEMOGRAM)on 12-18-2024 Erythrocyte distribution width (RBC) [Ratio] 14.9 % Normal 11.5-15.[address] [facility] Comment on above: Performed By: #### L [id number] ####Conservation Coordinator: PHILLY FRANCO ([phone])[facility])[address] [place] [address] Hematocrit (Bld) [Volume fraction] 25.3 % Low 35.0-47.[address] [facility] Comment on above: Performed By: #### L [id number] ####Conservation Coordinator: PHILLY FRANCO ([phone])[address] Hemoglobin (Bld) [Mass/Vol] 9.0 g/dL Low 11.7-16.[address] [facility] Comment on above: Performed By: #### L [id number] ####Conservation Coordinator: PHILLY FRANCO ([phone])[address] MCH (RBC) [Entitic mass] 30.8 pg Normal 26.0-34.[address] [facility] Comment on above: Performed By: #### L [id number] ####Conservation Coordinator: PHILLY FRANCO ([phone])[address] MCHC 35.6 % Normal 30.5-36.[address] [facility] Comment on above: Performed By: #### L [id number] ####Conservation Coordinator: PHILLY FRANCO ([phone])[address] MCV (RBC) [Entitic vol] 86.6 fL Normal 77.0-99.0 [facility] Comment on above: Performed By: #### L [id number] ####Conservation Coordinator: PHILLY FRANCO ([phone])[facility] ([facility])[address] [place] [address] Platelet mean volume (Bld) [Entitic vol] 10.7 fL Normal 9.0-12.[address] [facility] Comment on above: Performed By: #### L [id number] ####Conservation Coordinator: PHILLY FRANCO ([phone])[facility] ([facility])[address] [place] [address] Platelets (Bld) [#/Vol] 327 10*3/uL Normal 140-[address] [facility] Comment on above: Performed By: #### L [id number] ####Conservation Coordinator: PHILLY FRANCO ([phone])[facility] ([facility])[address] [place] [address] RBC (Bld) [#/Vol] 2.92 10*6/uL Low 3.80-5.[address] [facility] Comment on above: Performed By: #### L [id number] ####Conservation Coordinator: PHILLY FRANCO ([phone])[facility] ([facility])[address] [place] [address] WBC (Bld) [#/Vol] 19.3 10*3/uL High 3.6-10.[address] [facility] Comment on above: Performed By: #### L [id number] ####Conservation Coordinator: PHILLY FRANCO ([phone])[facility])[address] [place] [address] CBC panel Auto (Bld)on 12-18 Erythrocyte distribution width (RBC) [Ratio] 14.9 % 11.5 - 15.0 % [facility] Hematocrit (Bld) [Volume fraction] 25.3 % Low 35.0 - 47.0 % [facility] Hemoglobin (Bld) [Mass/Vol] 9 g/dL Low 11.7 - 16.0 g/dL [facility] Interpretation and review of laboratory results Abnormal [facility] MCH (RBC) [Entitic mass] 30.8 pg 26.0 - 34.0 pg [facility] MCHC (RBC) [Mass/Vol] 35.6 % 30.5 - 36.0 % [facility] MCV (RBC) [Entitic vol] 86.6 fL 77.0 - 99.0 fL [facility] Platelet mean volume (Bld) [Entitic vol] 10.7 fL 9.0 - 12.7 fL [facility] Platelets (Bld) [#/Vol] 327 10*3/uL 140 - 440 10*3/uL [facility] RBC (Bld) [#/Vol] 2.92 10*6/uL Low 3.80 - 5.2 0 10*6/uL [facility] WBC (Bld) [#/Vol] 19.3 10*3/uL High 3.6 - 10.7 10*3/uL [facility] COMPREHENSIVE METABOLIC PANE Fam 12-18-2024 Albumin [Mass/Vol] 1.3 g/dL Low 3.4-4.8 [facility] Comment on above: Performed By: #### L [id number] ####Conservation Coordinator: PHILLY FRANCO ([phone])[facility])[address] [place] [address] ALP [Catalytic activity/Vol] 136 U/L Normal 40-150 [facility] Comment on above: Performed By: #### L AB17 ####Conservation Coordinator: PHILLY FRANCO ([phone])[address] ALT [Catalytic activity/Vol] 6 U/L Normal <30 [facility] Comment on above: Performed By: #### L AB17 ####Conservation Coordinator: PHILLY FRANCO ([phone])[facility])[address] [place] [address] Anion gap [Moles/Vol] 6 mmol/L Normal 3-13 [facility] Comment on above: Performed By: #### L AB17 ####Conservation Coordinator: PHILLY FRANCO ([phone])[facility])[address] [place] [address] AST [Catalytic activity/Vol] 51 U/L High <34 [facility] Comment on above: Performed By: #### L [id number] ####Conservation Coordinator: PHILLY FRANCO ([phone])[facility] [place] [address] Bilirubin [Mass/Vol] 0.5 mg/dL Normal <1.2 [facility] Comment on above: Performed By: #### L [id number] ####Conservation Coordinator: PHILLY FRANCO ([phone])[facility] ([facility])[address] [place] [address] Calcium [Mass/Vol] 7.3 mg/dL Low 8.8-10.[address] [facility] Comment on above: Performed By: #### L [id number] ####Conservation Coordinator: PHILLY FRANCO ([phone])[facility] ([facility])[address] [place] [address] Chloride [Moles/Vol] 97 mmol/L Low 98-107 [facility] Comment on above: Performed By: #### L AB17 ####Conservation Coordinator: PHILLY FRANCO ([phone])[facility] ([facility])[address] [place] [address] CO2 [Moles/Vol] 25 mmol/L Normal 23-[address] [facility] Comment on above: Performed By: #### L AB17 ####Conservation Coordinator: PHILLY FRANCO ([phone])[facility] ([facility])[address] [place] [address] Creatinine [Mass/Vol] 3.46 mg/dL High 0.57-1.11 [facility] Comment on above: Performed By: #### L AB17 ####Conservation Coordinator: PHILLY FRANCO ([phone])[facility] ([facility])[address] [place] [address] [place] GLOMERULAR FILTRATION RATE ML/MIN/1.73 SQ M.PREDICTED 13.4 mL/min/1.73m*2 Low >60.[address] [facility] Comment on above: Result Comment: Calc ulation based on the Chronic Kidney Disease Epidemiology Collaboration (CKD-EPI) equation refit without adjustment for race Performed By: #### L [id number] ####Conservation Coordinator: PHILLY FRANCO ([phone])[facility])[address] [place] [address] Glucose [Mass/Vol] 89 mg/dL Normal 82-[address] [facility] Comment on above: Performed By: #### L AB17 ####Conservation Coordinator: PHILLY FRANCO ([phone])[facility])[address] [place] [address] Potassium [Moles/Vol] 4.4 mmol/L Normal 3.5-5.1 [facility] Comment on above: Result Comment: [facility] potassium values may be up to 0.5 mmol/L lower than serum values. Performed By: #### L [id number] ####Conservation Coordinator: PHILLY FRANCO ([phone])[facility])[address] [place] [address] Protein [Mass/Vol] 5.5 g/dL Low 6.4-8.[address] [facility] Comment on above: Performed By: #### L [id number] ####Conservation Coordinator: PHILLY FRANCO ([phone])[facility] ([facility])[address] [place] [address] Sodium [Moles/Vol] 128 mmol/L Low 136-[address] [facility] Comment on above: Performed By: #### L AB17 ####Conservation Coordinator: PHILLY FRANCO ([phone])[facility])[address] [place] [address] Urea nitrogen [Mass/Vol] 18 mg/dL Normal 9-[address] [facility] Comment on above: Performed By: #### L AB17 ####Conservation Coordinator: PHILLY FRANCO ([phone])[facility])[address] [place] [address] Comprehensive metabolic 1998 panelon 12-18-2024 Albumin [Mass/Vol] 1.3 g/dL Low 3.4 - 4.8 g/dL [facility] ALP [Catalytic activity/Vol] 136 U/L 40 - 150 U/L [facility] ALT [Catalytic activity/Vol] 6 U/L NINF - 30 U/L [facility] Anion gap [Moles/Vol] 6 mmol/L 3 - 13 mmol/L [facility] AST [Catalytic activity/Vol] 51 U/L High NINF - 34 U/L [facility] Bilirubin [Mass/Vol] 0.5 mg/dL NINF - 1.2 mg/dL [facility] Calcium [Mass/Vol] 7.3 mg/dL Low 8.8 - 10. 0 mg/dL [facility] Chloride [Moles/Vol] 97 mmol/L Low 98 - 10 7 mmol/L [facility] CO2 [Moles/Vol] 25 mmol/L 23 - 31 mmol/L [facility] Creatinine [Mass/Vol] 3.46 mg/dL High 0.57 - 1.11 mg/dL [facility] GFR/1.73 sq M.predicted (S/P/Bld) [Vol rate/Area] 13.4 mL/min Low - PINF [facility] Glucose [Mass/Vol] 89 mg/dL 82 - 115 mg/dL [facility] Interpretation and review of laboratory results Abnormal [facility] Potassium [Moles/Vol] 4.4 mmol/L 3.5 - 5.1 mmol/L [facility] Protein [Mass/Vol] 5.5 g/dL Low 6.4 - 8.3 g/dL [facility] Sodium [Moles/Vol] 128 mmol/L Low 136 - 145 mmol/L [facility] Urea nitrogen [Mass/Vol] 18 mg/dL 9 - 23 mg/dL [facility] HEMOGLOBIN AND HEMATOCRIT, [place] 12-18-2024 Hematocrit (Bld) [Volume fraction] 22.6 % Low 35.0-47.[address] [facility] Comment on above: Performed By: #### L [id number] ####Conservation Coordinator: PHILLY FRANCO ([phone])[facility])[address] [place] [address] Hemoglobin (Bld) [Mass/Vol] 7.9 g/dL Low 11.7-16.[address] [facility] Comment on above: Performed By: #### L [id number] ####Conservation Coordinator: PHILLY FRANCO ([phone])[facility] ([facility])[address] [place] [address] Hematocrit (Bld) [Volume fraction] 25.1 % Low 35.0-47.[address] [facility] Comment on above: Performed By: #### L [id number] ####Conservation Coordinator: PHILLY FRANCO ([phone])[facility] ([facility])[address] [place] [address] Hemoglobin (Bld) [Mass/Vol] 8.8 g/dL Low 11.7-16.[address] [facility] Comment on above: Performed By: #### L [id number] ####Conservation Coordinator: PHILLY FRANCO ([phone])[facility] [place] [address] Hemoglobin (Bld) [Mass/Vol]o n 12-18-2024 Hematocrit (Bld) [Volume fraction] 22.6 % Low 35.0 - 47.0 % [facility] Interpretation and review of laboratory results Abnormal [facility] Hematocrit (Bld) [Volume fraction] 25.1 % Low 35.0 - 47.0 % [facility] Interpretation and review of laboratory results Abnormal [facility] Laboratory - Chemistry and C hemistry - challengeon 12-18-2024 Glucose [Mass/Vol] 93 mg/dL 70 - 100 mg/dL [facility] Glucose [Mass/Vol] 83 mg/dL 70 - 100 mg/dL [facility] - Hematology and Cell countson 12-18-2024 Hemoglobin (Bld) [Mass/Vol] 7.9 g/dL Low 11.7 - 16.0 g/dL [facility] Hemoglobin (Bld) [Mass/Vol] 8.8 g/dL Low 11.7 - 16.0 g/dL [facility] MR Brain WO contraston 12-18 [facility] Radiology Study observation (narrative) [facility] MR Brain WO contrastOrdered By: Andrea Gonzales on 12-18-2024 [facility] Work Phone: MR Cervical spine WO and W c ontrast Indu 12-18-2024 [facility] Radiology Study observation (narrative) [facility] No Panel Informationon 12-18 Interpretation and review of laboratory results Normal [facility] Interpretation and review of laboratory results Normal [facility] Nursing Noteon 12-18-2024 Nursing Note Normal [facility] Progress Noteon 12-18-2024 Progress Note Vancomycin therapy h as been discontinued by Dr. Shamar Bearden on 12/18/24. Thank you for the consult. Pharmacy signing off for vancomycin dosing. Jess Byrd [facility], Date: 12/18/24 Time: 3:[address] [facility] Progress Note Normal [facility] Progress Note Normal [facility] Progress Note Normal [facility] Progress Note Normal [facility] Progress Note Normal [facility] Progress Note Normal [facility] Progress Note Normal [facility] Progress Note Normal [facility] Bacteria identified Cx Nom ( Bld)on 12-17-2024 Interpretation and review of laboratory results Normal [facility] CBC (HEMOGRAM)on 12-17-2024 Erythrocyte distribution width (RBC) [Ratio] 17.6 % High 11.5-15.[address] [facility] Comment on above: Performed By: #### L [id number] ####Conservation Coordinator: PHILLY FRANCO ([phone])[address] Hematocrit (Bld) [Volume fraction] 12.6 % Low 35.0-47.[address] [facility] Comment on above: Performed By: #### L [id number] ####Conservation Coordinator: PHILLY FRANCO ([phone])[address] Hemoglobin (Bld) [Mass/Vol] 4.2 g/dL Critically low 11.7-16.[address] [facility] Comment on above: Performed By: #### L [id number] ####Conservation Coordinator: PHILLY FRANCO ([phone])[address] MCH (RBC) [Entitic mass] 30.2 pg Normal 26.0-34.[address] [facility] Comment on above: Performed By: #### L [id number] ####Conservation Coordinator: PHILLY [id number])[facility] ([facility])[address] [place] [address] MCHC 33.3 % Normal 30.5-36.[address] [facility] Comment on above: Performed By: #### L [id number] ####Conservation Coordinator: PHILLY FRANCO ([phone])[facility] ([facility])[address] [place] [address] MCV (RBC) [Entitic vol] 90.6 fL Normal 77.0-99.0 [facility] Comment on above: Performed By: #### L [id number] ####Conservation Coordinator: PHILLY FRANCO ([phone])[facility] ([facility])[address] [place] [address] Platelet mean volume (Bld) [Entitic vol] 11.0 fL Normal 9.0-12.[address] [facility] Comment on above: Performed By: #### L [id number] ####Conservation Coordinator: PHILLY FRANCO ([phone])[facility] ([facility])[address] [place] [address] Platelets (Bld) [#/Vol] 350 10*3/uL Normal 140-[address] [facility] Comment on above: Performed By: #### L [id number] ####Conservation Coordinator: PHILLY FRANCO ([phone])[facility])[address] [place] [address] RBC (Bld) [#/Vol] 1.39 10*6/uL Low 3.80-5.20 [facility] Comment on above: Performed By: #### L [id number] ####Conservation Coordinator: PHILLY FRANCO ([phone])[facility] ([facility])[address] [place] [address] WBC (Bld) [#/Vol] 12.8 10*3/uL High 3.6-10.[address] [facility] Comment on above: Performed By: #### L [id number] ####Conservation Coordinator: PHILLY FRANCO ([phone])[facility] ([address] Erythrocyte distribution width (RBC) [Ratio] 17.6 % High 11.5-15.0 [facility] Comment on above: Performed By: #### L [id number] ####Conservation Coordinator: PHILLY FRANCO ([phone])[facility])[address] [place] [address] Hematocrit (Bld) [Volume fraction] 12.6 % Low 35.0-47.0 [facility] Comment on above: Performed By: #### L [id number] ####Conservation Coordinator: PHILLY FRANCO ([phone])[address] Hemoglobin (Bld) [Mass/Vol] 4.1 g/dL Critically low 11.7-16.0 [facility] Comment on above: Performed By: #### L [id number] ####Conservation Coordinator: PHILLY FRANCO ([phone])[facility] ([facility])[address] [place] [address] MCH (RBC) [Entitic mass] 29.5 pg Normal 26.0-34.0 [facility] Comment on above: Performed By: #### L [id number] ####Conservation Coordinator: PHILLY FRANCO ([phone])[facility])[address] [place] [address] MCHC 32.5 % Normal 30.5-36.0 [facility] Comment on above: Performed By: #### L [id number] ####Conservation Coordinator: PHILLY FRANCO ([phone])[facility])[address] [place] [address] MCV (RBC) [Entitic vol] 90.6 fL Normal 77.0-99.0 [facility] Comment on above: Performed By: #### L [id number] ####Conservation Coordinator: PHILLY FRANCO ([phone])[facility])[address] [place] [address] Platelet mean volume (Bld) [Entitic vol] 10.7 fL Normal 9.0-12.[address] [facility] Comment on above: Performed By: #### L [id number] ####Conservation Coordinator: PHILLY FRANCO ([phone])[facility])[address] [place] [address] Platelets (Bld) [#/Vol] 322 10*3/uL Normal 140-[address] [facility] Comment on above: Performed By: #### L [id number] ####Conservation Coordinator: PHILLY FRANCO ([phone])[facility] ([facility])[address] [place] [address] RBC (Bld) [#/Vol] 1.39 10*6/uL Low 3.80-5.[address] [facility] Comment on above: Performed By: #### L [id number] ####Conservation Coordinator: PHILLY FRANCO ([phone])[facility])[address] [place] [address] WBC (Bld) [#/Vol] 11.3 10*3/uL High 3.6-10.[address] [facility] Comment on above: Performed By: #### L [id number] ####Conservation Coordinator: PHILLY FRANCO ([phone])[facility])[address] [place] [address] CBC panel Auto (Bld)Ordered By: Lindy Johansen on 12-17-2024 Erythrocyte distribution width (RBC) [Ratio] 17.6 % High 11.5 - 15.0 % [facility] Hematocrit (Bld) [Volume fraction] 12.6 % Low 35.0 - 47.0 % [facility] Hemoglobin (Bld) [Mass/Vol] 4.2 g/dL Critically low 11.7 - 16.0 g/dL [facility] Interpretation and review of laboratory results Abnormal [facility] MCH (RBC) [Entitic mass] 30.2 pg 26.0 - 34.0 pg [facility] MCHC (RBC) [Mass/Vol] 33.3 % 30.5 - 36.0 % [facility] MCV (RBC) [Entitic vol] 90.6 fL 77.0 - 99.0 fL [facility] Platelet mean volume (Bld) [Entitic vol] 11 fL 9.0 - 12.7 fL [facility] Platelets (Bld) [#/Vol] 350 10*3/uL 140 - 440 10*3/uL [facility] RBC (Bld) [#/Vol] 1.39 10*6/uL Low 3.80 - 5.2 0 10*6/uL [facility] WBC (Bld) [#/Vol] 12.8 10*3/uL High 3.6 - 10.7 10*3/uL [facility] CBC panel Auto (Bld)on 12-17 Erythrocyte distribution width (RBC) [Ratio] 17.6 % High 11.5 - 15.0 % [facility] Hematocrit (Bld) [Volume fraction] 12.6 % Low 35.0 - 47.0 % [facility] Hemoglobin (Bld) [Mass/Vol] 4.1 g/dL Critically low 11.7 - 16.0 g/dL [facility] Interpretation and review of laboratory results Abnormal [facility] MCH (RBC) [Entitic mass] 29.5 pg 26.0 - 34.0 pg [facility] MCHC (RBC) [Mass/Vol] 32.5 % 30.5 - 36.0 % [facility] MCV (RBC) [Entitic vol] 90.6 fL 77.0 - 99.0 fL [facility] Platelet mean volume (Bld) [Entitic vol] 10.7 fL 9.0 - 12.7 fL [facility] Platelets (Bld) [#/Vol] 322 10*3/uL 140 - 440 10*3/uL [facility] RBC (Bld) [#/Vol] 1.39 10*6/uL Low 3.80 - 5.2 0 10*6/uL [facility] WBC (Bld) [#/Vol] 11.3 10*3/uL High 3.6 - 10.7 10*3/uL [facility] COMPREHENSIVE METABOLIC PANE Fam 12-17-2024 Albumin [Mass/Vol] 1.3 g/dL Low 3.4-4.8 [facility] Comment on above: Performed By: #### L [id number] ####Conservation Coordinator: PHILLY FRANCO ([phone])[address] [place] [address] [place] ALP [Catalytic activity/Vol] 130 U/L Normal 40-150 [facility] Comment on above: Performed By: #### L [id number] ####Conservation Coordinator: PHILLY FRANCO ([phone])[facility] ([facility])[address] [place] [address] ALT [Catalytic activity/Vol] 8 U/L Normal <30 [facility] Comment on above: Performed By: #### L [id number] ####Conservation Coordinator: PHILLY FRANCO ([phone])[facility] ([facility])[address] [place] [address] Anion gap [Moles/Vol] 7 mmol/L Normal 3-13 [facility] Comment on above: Performed By: #### L [id number] ####Conservation Coordinator: PHILLY FRANCO ([phone])[facility] ([facility])[address] [place] [address] AST [Catalytic activity/Vol] 41 U/L High <34 [facility] Comment on above: Performed By: #### L [id number] ####Conservation Coordinator: PHILLY FRANCO ([phone])[facility] ([facility])[address] [place] [address] Bilirubin [Mass/Vol] 0.5 mg/dL Normal <1.2 [facility] Comment on above: Performed By: #### L [id number] ####Conservation Coordinator: PHILLY FRANCO ([phone])[facility] ([facility])[address] [place] [address] Calcium [Mass/Vol] 7.3 mg/dL Low 8.8-10.0 [facility] Comment on above: Performed By: #### L [id number] ####Conservation Coordinator: PHILLY FRANCO ([phone])[facility])[address] [place] [address] Chloride [Moles/Vol] 95 mmol/L Low 98-107 [facility] Comment on above: Performed By: #### L [id number] ####Conservation Coordinator: PHILLY FRANCO ([phone])[facility] ([facility])[address] [place] [address] CO2 [Moles/Vol] 26 mmol/L Normal 23-[address] [facility] Comment on above: Performed By: #### L [id number] ####Conservation Coordinator: PHILLY FRANCO ([phone])[facility] ([facility])[address] [place] [address] Creatinine [Mass/Vol] 2.91 mg/dL High 0.57-1.11 [facility] Comment on above: Performed By: #### L [id number] ####Conservation Coordinator: PHILLY FRANCO ([phone])[facility])[address] [place] [address] GLOMERULAR FILTRATION RATE ML/MIN/1.73 SQ M.PREDICTED 16.4 mL/min/1.73m*2 Low >60.[address] [facility] Comment on above: Result Comment: Calc ulation based on the Chronic Kidney Disease Epidemiology Collaboration (CKD-EPI) equation refit without adjustment for race Performed By: #### L [id number] ####Conservation Coordinator: PHILLY FRANCO ([phone])[facility] ([facility])[address] [place] [address] Glucose [Mass/Vol] 110 mg/dL Normal 82-[address] [facility] Comment on above: Performed By: #### L [id number] ####Conservation Coordinator: PHILLY FRANCO ([phone])[facility])[address] [place] [address] Potassium [Moles/Vol] 4.0 mmol/L Normal 3.5-5.1 [facility] Comment on above: Result Comment: [facility] potassium values may be up to 0.5 mmol/L lower than serum values. Performed By: #### L [id number] ####Conservation Coordinator: PHILLY FRANCO ([phone])[facility])[address] [place] [address] Protein [Mass/Vol] 5.6 g/dL Low 6.4-8.[address] [facility] Comment on above: Performed By: #### L [id number] ####Conservation Coordinator: PHILLY FRANCO ([phone])[facility] ([facility])[address] [place] [address] Sodium [Moles/Vol] 128 mmol/L Low 136-[address] [facility] Comment on above: Performed By: #### L [id number] ####Conservation Coordinator: PHILLY FRANCO ([phone])[facility] [place] [address] Urea nitrogen [Mass/Vol] 14 mg/dL Normal 9-[address] [facility] Comment on above: Performed By: #### L [id number] ####Conservation Coordinator: PHILLY JANNETTEQuinn ([phone])[facility] [place] [address] Coagulation index TEG Qn (Bl d)Ordered By: Juventino Lares on 12-17-2024 APTEM A10 67 mm 50 - 70 mm [facility] APTEM A20 72 mm High 50 - 70 mm [facility] Clot angle TEG (Bld) [Angle] 82 [facility] Clot formation.extrinsic coagulation system activated Rotational TEG (Bld) [Time] 69 s 43 - 82 s [facility] Clot formation.extrinsic coagulation system activated Rotational TEG (Bld) [Time] 38 s Low 48 - 127 s [facility] Clot formation.extrinsic coagulation system activated Rotational TEG (Bld) [Time] 82 High [facility] formation.extrinsic coagulation system activated Rotational TEG (Bld) [Time] 67 mm 50 - 70 mm [facility] Clot formation.extrinsic coagulation system activated Rotational TEG (Bld) [Time] 72 mm High 50 - 70 mm [facility] Clot formation.extrinsic coagulation system activated Rotational TEG (Bld) [Time] 73 mm High 52 - 70 mm [facility] Clot formation.extrinsic coagulation system activated.fibrinolysis suppressed Rotational TEG (Bld) [Time] 37 s Low 48 - 127 s [facility] Clot formation.extrinsic coagulation system activated.fibrinolysis suppressed Rotational TEG (Bld) [Time] 31 mm High 7 - 24 mm [facility] Clot formation.extrinsic coagulation system activated.fibrinolysis suppressed Rotational TEG (Bld) [Time] 30 mm [facility] Clotting time.extrinsic coagulation system activated.fibrinolysis suppressed Rotational TEG (Bld) 78 s 43 - 82 s [facility] Interpretation and review of laboratory results Abnormal [facility] Maximum clot firmness.extrinsic coagulation system activated.fibrinolysis suppressed Rotational TEG (Bld) [Length] 74 mm High 52 - 70 mm [facility] Comprehensive metabolic 1998 panelon 12-17-2024 Albumin [Mass/Vol] 1.3 g/dL Low 3.4 - 4.8 g/dL [facility] ALP [Catalytic activity/Vol] 130 U/L 40 - 150 U/L [facility] ALT [Catalytic activity/Vol] 8 U/L NINF - 30 U/L [facility] Anion gap [Moles/Vol] 7 mmol/L 3 - 13 mmol/L [facility] AST [Catalytic activity/Vol] 41 U/L High NINF - 34 U/L [facility] Bilirubin [Mass/Vol] 0.5 mg/dL NINF - 1.2 mg/dL [facility] Calcium [Mass/Vol] 7.3 mg/dL Low 8.8 - 10. 0 mg/dL [facility] Chloride [Moles/Vol] 95 mmol/L Low 98 - 10 7 mmol/L [facility] CO2 [Moles/Vol] 26 mmol/L 23 - 31 mmol/L [facility] Creatinine [Mass/Vol] 2.91 mg/dL High 0.57 - 1.11 mg/dL [facility] GFR/1.73 sq M.predicted (S/P/Bld) [Vol rate/Area] 16.4 mL/min Low - PINF [facility] Glucose [Mass/Vol] 110 mg/dL 82 - 115 mg/dL [facility] Interpretation and review of laboratory results Abnormal [facility] Potassium [Moles/Vol] 4 mmol/L 3.5 - 5.1 mmol/L [facility] Protein [Mass/Vol] 5.6 g/dL Low 6.4 - 8.3 g/dL [facility] Sodium [Moles/Vol] 128 mmol/L Low 136 - 145 mmol/L [facility] Urea nitrogen [Mass/Vol] 14 mg/dL 9 - 23 mg/dL [facility] HEMOGLOBIN AND HEMATOCRIT, B LOODon 12-17-2024 Hematocrit (Bld) [Volume fraction] 27.1 % Low 35.0-47.[address] [facility] Comment on above: Performed By: #### L [id number] ####Conservation Coordinator: PHILLY FRANCO ([phone])[facility] ([facility])[address] [place] [address] Hemoglobin (Bld) [Mass/Vol] 9.6 g/dL Low 11.7-16.[address] [facility] Comment on above: Performed By: #### L [id number] ####Conservation Coordinator: PHILLY FRANCO ([phone])[facility] ([facility])[address] [place] [address] Hemoglobin (Bld) [Mass/Vol]O rdered By: Adrienne Bradshaw on 12-17-2024 Hematocrit (Bld) [Volume fraction] 27.1 % Low 35.0 - 47.0 % [facility] Interpretation and review of laboratory results Abnormal [facility] LACTIC ACID WITH REFLEXon Lactate [Moles/Vol] 1.6 mmol/L Normal 0.5-2.[address] [facility] Comment on above: Performed By: #### L [id number] ####Conservation Coordinator: PHILLY FRANCO ([phone])[facility] ([facility])[address] [place] [address] Lactate [Moles/Vol] 2.4 mmol/L High 0.5-2.[address] [facility] Comment on above: Performed By: #### L [id number] ####Conservation Coordinator: PHILLY FRANCO ([phone])[facility] ([facility])[address] [place] [address] Laboratory - Chemistry and C hemistry - challengeon 12-17-2024 Glucose [Mass/Vol] 96 mg/dL 70 - 100 mg/dL [facility] Lactate [Moles/Vol] 1.6 mmol/L 0.5 - 2. 2 mmol/L [facility] Lactate [Moles/Vol] 2.4 mmol/L High 0.5 - 2. 2 mmol/L [facility] Laboratory - Coagulationon 0 12-17-2024 aPTT Coag (PPP) [Time] 30.5 s 20.0 - 30.5 s [facility] INR Coag (PPP) [Relative time] 1.2 {INR} High 0.9 - 1.1 [facility] PT Coag (Bld) [Time] 13 s High 9.0 - 12.0 s [facility] Laboratory - Drug toxicology on 12-17-2024 levETIRAcetam [Mass/Vol] 11.3 ug/mL [facility] Laboratory - Hematology and Cell countsOrdered By: Adrienne Bradshaw on 12-17-2024 Hemoglobin (Bld) [Mass/Vol] 9.6 g/dL Low 11.7 - 16.0 g/dL [facility] Laboratory - Microbiology an d Antimicrobial susceptibilityon 12-17-2024 Bacteria identified Cx Nom (Bld) No growth at 5 days [facility] No Panel Informationon 12-17 [facility] Interpretation and review of laboratory results Normal [facility] Blood Expiration Date S [facility] Blood Expiration Date S [facility] Crossmatch interpretation COMP [facility] Dispense Status Transfused [facility] Product Blood Type 5100 [facility] PRODUCT CODE [id number] [facility] PRODUCT CODE [id number] [facility] PRODUCT CODE [id number] [facility] ABO O [facility] Number [id number] [facility] Number [id number] [facility] Number [id number] [facility] RH Positive [facility] Unit Volume 300 mL [facility] Interpretation and review of laboratory results Abnormal [facility] Interpretation and review of laboratory results Normal [facility] Interpretation and review of laboratory results Abnormal [facility] Nursing Noteon 12-17-2024 Nursing Note Normal [facility] Nursing Note Non Emergent rapid paged for stat labs per general surgery. Pt hard stick. Pt known to rapid. Labs sent. Hemoglobin 4.2. Talked with Dr. Leonardo about a possible line for patient due to the issues with getting access/blood. Normal [facility] Nursing Note Normal [facility] PROTIME AND APTTon aPTT Coag (Bld) [Time] 30.5 s Normal 20.0-30.5 [facility] Comment on above: Performed By: #### L [id number] ####Conservation Coordinator: PHILLY FRANCO ([phone])[facility] ([facility])[address] [place] [address] INR Coag (PPP) [Relative time] 1.2 {INR} High 0.9-1.1 [facility] Comment on above: Result Comment: Bruce mmended [...] prevent Myocardial Infarction Performed By: #### L [id number] ####Conservation Coordinator: PHILLY FRANCO ([phone])[facility] ([facility])[address] [place] [address] PT Coag (PPP) [Time] 13.0 s High 9.0-12.0 [facility] Comment on above: Performed By: #### L [id number] ####Conservation Coordinator: PHILLY FRNACO ([phone])[facility] ([facility])[address] [place] [address] Progress Noteon 12-17-2024 Progress Note Normal [facility] Progress Note Normal [facility] Progress Note Normal [facility] Progress Note Normal [facility] ALFREDO TRAUMA PANELon 025 APTEM A10 67 mm Normal 50-70 [facility] Comment on above: Performed By: #### L [id number] ####Conservation Coordinator: PHILLY FRANCO ([phone])[facility] ([facility])[address] [place] [address] APTEM A20 72 mm High 50-70 [facility] Comment on above: Performed By: #### L [id number] ####Conservation Coordinator: PHILLY FRANCO ([phone])[facility] ([facility])[address] [place] [address] APTEM ALPHA 82 DEGREES High 65-80 [facility] Comment on above: Performed By: #### L [id number] ####Conservation Coordinator: PHILLY FRANCO ([phone])[facility] ([facility])[address] APTEM CLOT FORMATION TIME 37 s Low 48-127 [facility] Comment on above: Performed By: #### L [id number] ####Conservation Coordinator: PHILLY FRANCO ([phone])[facility] ([facility])[address] [place] [address] [place] APTEM CLOTTING TIME 78 s Normal 43-82 [facility] Comment on above: Performed By: #### L [id number] ####Conservation Coordinator: PHILLY FRANCO ([phone])[facility] ([facility])[address] [place] [address] [place] APTEM MAXIMUM CLOT FIRMNESS 74 mm High 52-70 [facility] Comment on above: Performed By: #### L [id number] ####Conservation Coordinator: PHILLY FRANCO ([phone])[facility] ([facility])[address] [place] [address] [place] EXTEM A10 67 mm Normal 50-70 [facility] Comment on above: Performed By: #### L [id number] ####Conservation Coordinator: PHILYL FRANCO ([phone])[facility] ([facility])[address] [place] [address] [place] EXTEM A20 72 mm High 50-70 [facility] Comment on above: Performed By: #### L [id number] ####Conservation Coordinator: PHILLY FRANCO ([phone])[facility] ([facility])[address] [place] [address] [place] EXTEM ALPHA 82 DEGREES High 65-80 [facility] Comment on above: Performed By: #### L [id number] ####Conservation Coordinator: PHILLY FRANCO ([phone])[facility] ([facility])[address] [place] [address] [place] EXTEM CLOT FORMATION TIME 38 s Low 48-127 [facility] Comment on above: Performed By: #### L [id number] ####Conservation Coordinator: PHILLY FRANCO ([phone])[facility] ([facility])[address] [place] [address] EXTEM CLOTTING TIME 69 s Normal 43-82 [facility] Comment on above: Performed By: #### L [id number] ####Conservation Coordinator: PHILLY FRANCO ([phone])[facility] ([facility])[address] [place] [address] EXTEM MAXIMUM CLOT FIRMNESS 73 mm High 52-70 [facility] Comment on above: Performed By: #### L [id number] ####Conservation Coordinator: PHILLY FRANCO ([phone])[facility] ([facility])[address] [place] [address] FIBTEM A10 31 mm Normal [facility] Comment on above: Performed By: #### L [id number] ####Conservation Coordinator: PHILLY FRANCO ([phone])[facility] ([facility])[address] [place] [address] FIBTEM A20 30 mm Normal [facility] Comment on above: Performed By: #### L [id number] ####Conservation Coordinator: PHILLY FRANCO ([phone])[facility] ([facility])[address] [place] [address] FIBTEM MAXIMUM CLOT FIRMNESS 31 mm High 7-24 [facility] Comment on above: Performed By: #### L [id number] ####Conservation Coordinator: PHILLY FRANCO ([id number])[facility] ([facility])[address] [place] [address] CBC (HEMOGRAM)on 12-16-2024 Erythrocyte distribution width (RBC) [Ratio] 17.2 % High 11.5-15.[address] [facility] Comment on above: Performed By: #### L [id number] ####Conservation Coordinator: PHILLY FRANCO ([phone])[facility] ([facility])[address] [place] [address] Hematocrit (Bld) [Volume fraction] 24.9 % Low 35.0-47.0 [facility] Comment on above: Performed By: #### L [id number] ####Conservation Coordinator: PHILLY FRANCO ([phone])[facility])[address] [place] [address] Hemoglobin (Bld) [Mass/Vol] 8.2 g/dL Low 11.7-16.[address] [facility] Comment on above: Performed By: #### L [id number] ####Conservation Coordinator: PHILLY FRANCO ([phone])[facility] ([facility])[address] [place] [address] MCH (RBC) [Entitic mass] 29.7 pg Normal 26.0-34.[address] [facility] Comment on above: Performed By: #### L [id number] ####Conservation Coordinator: PHILLY FRANCO ([phone])[facility])[address] [place] [address] MCHC 32.9 % Normal 30.5-36.[address] [facility] Comment on above: Performed By: #### L [id number] ####Conservation Coordinator: PHILLY FRANCO ([phone])[facility])[address] [place] [address] MCV (RBC) [Entitic vol] 90.2 fL Normal 77.0-99.0 [facility] Comment on above: Performed By: #### L [id number] ####Conservation Coordinator: PHILLY FRANCO ([phone])[facility])[address] [place] [address] Platelet mean volume (Bld) [Entitic vol] 10.6 fL Normal 9.0-12.7 [facility] Comment on above: Performed By: #### L [id number] ####Conservation Coordinator: PHILLY FRANCO ([phone])[facility])[address] [place] [address] Platelets (Bld) [#/Vol] 394 10*3/uL Normal 140-440 [facility] Comment on above: Performed By: #### L [id number] ####Conservation Coordinator: PHILLY FRANCO ([phone])[facility])[address] [place] [address] RBC (Bld) [#/Vol] 2.76 10*6/uL Low 3.80-5.20 [facility] Comment on above: Performed By: #### L [id number] ####Conservation Coordinator: PHILLY FRANCO ([phone])[facility])[address] [place] [address] WBC (Bld) [#/Vol] 10.3 10*3/uL Normal 3.6-10.[address] [facility] Comment on above: Performed By: #### L [id number] ####Conservation Coordinator: PHILLY FRANCO ([phone])[facility])[address] [place] [address] CBC panel Auto (Bld)on 12-16 Erythrocyte distribution width (RBC) [Ratio] 17.2 % High 11.5 - 15.0 % [facility] Hematocrit (Bld) [Volume fraction] 24.9 % Low 35.0 - 47.0 % [facility] Hemoglobin (Bld) [Mass/Vol] 8.2 g/dL Low 11.7 - 16.0 g/dL [facility] Interpretation and review of laboratory results Abnormal [facility] MCH (RBC) [Entitic mass] 29.7 pg 26.0 - 34.0 pg [facility] MCHC (RBC) [Mass/Vol] 32.9 % 30.5 - 36.0 % [facility] MCV (RBC) [Entitic vol] 90.2 fL 77.0 - 99.0 fL [facility] Platelet mean volume (Bld) [Entitic vol] 10.6 fL 9.0 - 12.7 fL [facility] Platelets (Bld) [#/Vol] 394 10*3/uL 140 - 440 10*3/uL [facility] RBC (Bld) [#/Vol] 2.76 10*6/uL Low 3.80 - 5.2 0 10*6/uL [facility] WBC (Bld) [#/Vol] 10.3 10*3/uL 3.6 - 10.7 10*3/uL [facility] COMPREHENSIVE METABOLIC PANE Fam 12-16-2024 Albumin [Mass/Vol] 1.3 g/dL Low 3.4-4.8 [facility] Comment on above: Performed By: #### L [id number] ####Conservation Coordinator: PHILLY FRANCO ([phone])[facility] ([facility])[address] [place] [address] ALP [Catalytic activity/Vol] 139 U/L Normal 40-150 [facility] Comment on above: Performed By: #### L [id number] ####Conservation Coordinator: PHILLY FRANCO ([phone])[facility] ([facility])[address] [place] [address] ALT [Catalytic activity/Vol] 12 U/L Normal <30 [facility] Comment on above: Performed By: #### L [id number] ####Conservation Coordinator: PHILLY FRANCO ([phone])[facility])[address] [place] [address] Anion gap [Moles/Vol] 5 mmol/L Normal 3-13 [facility] Comment on above: Performed By: #### L [id number] ####Conservation Coordinator: PHILLY FRANCO ([phone])[facility])[address] [place] [address] AST [Catalytic activity/Vol] 45 U/L High <34 [facility] Comment on above: Performed By: #### L [id number] ####Conservation Coordinator: PHILLY FRANCO ([phone])[facility])[address] [place] [address] Bilirubin [Mass/Vol] 0.5 mg/dL Normal <1.2 [facility] Comment on above: Performed By: #### L [id number] ####Conservation Coordinator: PHILLY FRANCO ([phone])[facility])[address] [place] [address] Calcium [Mass/Vol] 7.4 mg/dL Low 8.8-10.0 [facility] Comment on above: Performed By: #### L [id number] ####Conservation Coordinator: PHILLY FRANCO ([phone])[facility])[address] [place] [address] Chloride [Moles/Vol] 98 mmol/L Normal 98-107 [facility] Comment on above: Performed By: #### L [id number] ####Conservation Coordinator: PHILLY FRANCO ([phone])[facility])[address] [place] [address] CO2 [Moles/Vol] 25 mmol/L Normal 23-[address] [facility] Comment on above: Performed By: #### L [id number] ####Conservation Coordinator: PHILLY FRANCO ([phone])[facility])[address] [place] [address] Creatinine [Mass/Vol] 2.66 mg/dL High 0.57-1.11 [facility] Comment on above: Performed By: #### L [id number] ####Conservation Coordinator: PHILLY FRANCO ([phone])[facility])[address] [place] [address] GLOMERULAR FILTRATION RATE ML/MIN/1.73 SQ M.PREDICTED 18.3 mL/min/1.73m*2 Low >60.[address] [facility] Comment on above: Result Comment: Calc ulation based on the Chronic Kidney Disease Epidemiology Collaboration (CKD-EPI) equation refit without adjustment for race Performed By: #### L [id number] ####Conservation Coordinator: PHILLY FRANCO ([phone])[facility])[address] [place] [address] Glucose [Mass/Vol] 146 mg/dL High 82-[address] [facility] Comment on above: Performed By: #### L [id number] ####Conservation Coordinator: PHILLY FRANCO ([phone])[facility])[address] [place] [address] Potassium [Moles/Vol] 4.3 mmol/L Normal 3.5-5.1 [facility] Comment on above: Result Comment: [facility] potassium values may be up to 0.5 mmol/L lower than serum values. Performed By: #### L [id number] ####Conservation Coordinator: PHILLY FRANCO ([phone])[facility] ([facility])[address] [place] [address] Protein [Mass/Vol] 5.9 g/dL Low 6.4-8.3 [facility] Comment on above: Performed By: #### L [id number] ####Conservation Coordinator: PHILLY FRANCO ([phone])[facility] ([facility])[address] [place] [address] Sodium [Moles/Vol] 128 mmol/L Low 136-145 [facility] Comment on above: Performed By: #### L [id number] ####Conservation Coordinator: PHILLY FRANCO ([phone])[facility])[address] [place] [address] Urea nitrogen [Mass/Vol] 10 mg/dL Normal 9-23 [facility] Comment on above: Performed By: #### L [id number] ####Conservation Coordinator: PHILLY FRANCO ([phone])[facility] ([facility])[address] [place] [address] Albumin [Mass/Vol] 1.4 g/dL Low 3.4-4.8 [facility] Comment on above: Performed By: #### L [id number] ####Conservation Coordinator: PHILLY FRANCO ([phone])[facility])[address] [place] [address] ALP [Catalytic activity/Vol] 147 U/L Normal 40-150 [facility] Comment on above: Performed By: #### L [id number] ####Conservation Coordinator: PHILLY FRANCO ([phone])[facility] ([facility])[address] [place] [address] [place] ALT [Catalytic activity/Vol] 13 U/L Normal <30 [facility] Comment on above: Performed By: #### L [id number] ####Conservation Coordinator: PHILLY FRANCO ([phone])[facility])[address] [place] [address] Anion gap [Moles/Vol] 8 mmol/L Normal 3-13 [facility] Comment on above: Performed By: #### L AB17 ####Conservation Coordinator: PHILLY FRANCO ([phone])[facility] ([facility])[address] [place] [address] AST [Catalytic activity/Vol] 52 U/L High <34 [facility] Comment on above: Performed By: #### L AB17 ####Conservation Coordinator: PHILLY FRANCO ([phone])[facility] ([facility])[address] [place] [address] Bilirubin [Mass/Vol] 0.4 mg/dL Normal <1.2 [facility] Comment on above: Performed By: #### L AB17 ####Conservation Coordinator: PHILLY FRANCO ([phone])[facility] ([facility])[address] [place] [address] Calcium [Mass/Vol] 7.5 mg/dL Low 8.8-10.0 [facility] Comment on above: Performed By: #### L AB17 ####Conservation Coordinator: PHILLY FRANCO ([phone])[facility] ([facility])[address] [place] [address] [place] Chloride [Moles/Vol] 99 mmol/L Normal 98-107 [facility] Comment on above: Performed By: #### L AB17 ####Conservation Coordinator: PHILLY FRANCO ([phone])[facility] ([facility])[address] [place] [address] [place] CO2 [Moles/Vol] 25 mmol/L Normal 23-31 [facility] Comment on above: Performed By: #### L [id number] ####Conservation Coordinator: PHILLY FRANCO ([phone])[facility] ([facility])[address] [place] [address] Creatinine [Mass/Vol] 1.99 mg/dL High 0.57-1.11 [facility] Comment on above: Performed By: #### L AB17 ####Conservation Coordinator: PHILLY FRANCO ([phone])[facility] ([facility])[address] [place] [address] GLOMERULAR FILTRATION RATE ML/MIN/1.73 SQ M.PREDICTED 25.9 mL/min/1.73m*2 Low >60.[address] [facility] Comment on above: Result Comment: Calc ulation based on the Chronic Kidney Disease Epidemiology Collaboration (CKD-EPI) equation refit without adjustment for race Performed By: #### L AB17 ####Conservation Coordinator: PHILLY FRANCO ([phone])[facility])[address] [place] [address] Glucose [Mass/Vol] 98 mg/dL Normal 82-[address] [facility] Comment on above: Performed By: #### L AB17 ####Conservation Coordinator: PHILLY FRANCO ([phone])[address] Potassium [Moles/Vol] 4.0 mmol/L Normal 3.5-5.1 [facility] Comment on above: Result Comment: [facility] potassium values may be up to 0.5 mmol/L lower than serum values. Performed By: #### L AB17 ####Conservation Coordinator: PHILLY FRANCO ([phone])[facility])[address] [place] [address] Protein [Mass/Vol] 6.4 g/dL Normal 6.4-8.[address] [facility] Comment on above: Performed By: #### L [id number] ####Conservation Coordinator: PHILLY FRANCO ([phone])[place] [address] [place] Sodium [Moles/Vol] 132 mmol/L Low 136-[address] [facility] Comment on above: Performed By: #### L AB17 ####Conservation Coordinator: PHILLY FRANCO ([phone])[address] Urea nitrogen [Mass/Vol] 7 mg/dL Low 9-[address] [facility] Comment on above: Performed By: #### L [id number] ####Conservation Coordinator: PHILLY FRANCO ([phone])[facility])[address] [place], [place] [id number] [facility] CT ABDOMEN PELVIS WO IV CONT RASTon 12-16-2024 CT ABDOMEN PELVIS WO IV CONTRAST Normal [facility] CT Abdomen and Pelvis WO con traston 12-16-2024 [facility] RADIOLOGY [facility] RADIOLOGY [facility] Radiology Study observation (narrative) [facility] CT Abdomen and Pelvis WO con trastOrdered By: Balta Ruvalcaba on 12-16-2024 [facility] Work Phone: Comprehensive metabolic 1998 panelon 12-16-2024 Albumin [Mass/Vol] 1.3 g/dL Low 3.4 - 4.8 g/dL [facility] ALP [Catalytic activity/Vol] 139 U/L 40 - 150 U/L [facility] ALT [Catalytic activity/Vol] 12 U/L NINF - 30 U/L [facility] Anion gap [Moles/Vol] 5 mmol/L 3 - 13 mmol/L [facility] AST [Catalytic activity/Vol] 45 U/L High NINF - 34 U/L [facility] Bilirubin [Mass/Vol] 0.5 mg/dL NINF - 1.2 mg/dL [facility] Calcium [Mass/Vol] 7.4 mg/dL Low 8.8 - 10. 0 mg/dL [facility] Chloride [Moles/Vol] 98 mmol/L 98 - 10 7 mmol/L [facility] CO2 [Moles/Vol] 25 mmol/L 23 - 31 mmol/L [facility] Creatinine [Mass/Vol] 2.66 mg/dL High 0.57 - 1.11 mg/dL [facility] GFR/1.73 sq M.predicted (S/P/Bld) [Vol rate/Area] 18.3 mL/min Low - PINF [facility] Glucose [Mass/Vol] 146 mg/dL High 82 - 115 mg/dL [facility] Interpretation and review of laboratory results Abnormal [facility] Potassium [Moles/Vol] 4.3 mmol/L 3.5 - 5.1 mmol/L [facility] Protein [Mass/Vol] 5.9 g/dL Low 6.4 - 8.3 g/dL [facility] Sodium [Moles/Vol] 128 mmol/L Low 136 - 145 mmol/L [facility] Urea nitrogen [Mass/Vol] 10 mg/dL 9 - 23 mg/dL [facility] Albumin [Mass/Vol] 1.4 g/dL Low 3.4 - 4.8 g/dL [facility] ALP [Catalytic activity/Vol] 147 U/L 40 - 150 U/L [facility] ALT [Catalytic activity/Vol] 13 U/L NINF - 30 U/L [facility] Anion gap [Moles/Vol] 8 mmol/L 3 - 13 mmol/L [facility] AST [Catalytic activity/Vol] 52 U/L High NINF - 34 U/L [facility] Bilirubin [Mass/Vol] 0.4 mg/dL NINF - 1.2 mg/dL [facility] Calcium [Mass/Vol] 7.5 mg/dL Low 8.8 - 10. 0 mg/dL [facility] Chloride [Moles/Vol] 99 mmol/L 98 - 10 7 mmol/L [facility] CO2 [Moles/Vol] 25 mmol/L 23 - 31 mmol/L [facility] Creatinine [Mass/Vol] 1.99 mg/dL High 0.57 - 1.11 mg/dL [facility] GFR/1.73 sq M.predicted (S/P/Bld) [Vol rate/Area] 25.9 mL/min Low - PINF [facility] Glucose [Mass/Vol] 98 mg/dL 82 - 115 mg/dL [facility] Interpretation and review of laboratory results Abnormal [facility] Potassium [Moles/Vol] 4 mmol/L 3.5 - 5.1 mmol/L [facility] Protein [Mass/Vol] 6.4 g/dL 6.4 - 8.3 g/dL [facility] Sodium [Moles/Vol] 132 mmol/L Low 136 - 145 mmol/L [facility] Urea nitrogen [Mass/Vol] 7 mg/dL Low 9 - 23 mg/dL [facility] Consulton 12-16-2024 Consult Normal [facility] LACTIC ACID WITH REFLEXon Lactate [Moles/Vol] 2.6 mmol/L High 0.5-2.2 [facility] Comment on above: Performed By: #### L [id number] ####Conservation Coordinator: PHILLY FRANCO ([phone])[facility] ([address] Laboratory - Chemistry and C hemistry - challengeon 12-16-2024 Lactate [Moles/Vol] 2.6 mmol/L High 0.5 - 2. 2 mmol/L [facility] Laboratory - Drug toxicology on 12-16-2024 Vancomycin [Mass/Vol] 13.7 ug/mL [facility] No Panel Informationon 12-16 Interpretation and review of laboratory results Abnormal [facility] Nursing Noteon 12-16-2024 Nursing Note Normal [facility] Nursing Note Crushed patients med s and put in pudding. Patient only took some of meds, and refused the rest. Normal [facility] Progress Noteon 12-16-2024 Progress Note Normal [facility] Progress Note Normal [facility] Progress Note Normal [facility] VANCOMYCIN, RANDOMon 025 VANCOMYCIN 13.7 ug/mL Normal [facility] Comment on above: Result Comment: GUERO Amanda COMMENTS:Toxicity is seen at concentrations >80-100 ug/mLTherapeutic (Peak) range: 20-40Therapeutic (Trough) range: 5-10 Performed By: #### L [id number] ####Conservation Coordinator: PHILLY FRANCO ([phone])[address] [phone] 12-15-[id number] [facility] [id number] 30 Day Readmission. Hospital Readmission Questionnaire not required due to patient readmitted from skilled or rehabilitation facility. Normal [facility] CBC (HEMOGRAM)on 12-15-2024 Erythrocyte distribution width (RBC) [Ratio] 17.2 % High 11.5-15.[address] [facility] Comment on above: Performed By: #### L [id number] ####Conservation Coordinator: PHILLY FRANCO ([phone])[address] Hematocrit (Bld) [Volume fraction] 25.6 % Low 35.0-47.[address] [facility] Comment on above: Performed By: #### L [id number] ####Conservation Coordinator: PHILLY FRANCO ([phone])[facility] ([facility])[address] [place] [address] Hemoglobin (Bld) [Mass/Vol] 8.3 g/dL Low 11.7-16.[address] [facility] Comment on above: Performed By: #### L [id number] ####Conservation Coordinator: PHILLY FRANCO ([phone])[facility] ([facility])[address] [place] [address] MCH (RBC) [Entitic mass] 30.0 pg Normal 26.0-34.0 [facility] Comment on above: Performed By: #### L [id number] ####Conservation Coordinator: PHILLY FRANCO ([phone])[facility])[address] [place] [address] MCHC 32.4 % Normal 30.5-36.0 [facility] Comment on above: Performed By: #### L [id number] ####Conservation Coordinator: PHILLY FRANCO ([phone])[facility] ([facility])[address] [place] [address] MCV (RBC) [Entitic vol] 92.4 fL Normal 77.0-99.0 [facility] Comment on above: Performed By: #### L [id number] ####Conservation Coordinator: PHILLY FRANCO ([phone])[facility] ([facility])[address] [place] [address] Platelet mean volume (Bld) [Entitic vol] 10.5 fL Normal 9.0-12.7 [facility] Comment on above: Performed By: #### L [id number] ####Conservation Coordinator: PHILLY FRANCO ([phone])[facility])[address] [place] [address] Platelets (Bld) [#/Vol] 363 10*3/uL Normal 140-440 [facility] Comment on above: Performed By: #### L [id number] ####Conservation Coordinator: PHILLY FRANCO ([phone])[facility] [place] [address] RBC (Bld) [#/Vol] 2.77 10*6/uL Low 3.80-5.20 [facility] Comment on above: Performed By: #### L [id number] ####Conservation Coordinator: PHILLY FRANCO ([phone])[facility] ([facility])[address] [place] [address] WBC (Bld) [#/Vol] 12.0 10*3/uL High 3.6-10.[address] [facility] Comment on above: Performed By: #### L [id number] ####Conservation Coordinator: PHILLY FRANCO ([phone])[facility])[address] [place] [address] CBC panel Auto (Bld)on 12-15 Erythrocyte distribution width (RBC) [Ratio] 17.2 % High 11.5 - 15.0 % [facility] Hematocrit (Bld) [Volume fraction] 25.6 % Low 35.0 - 47.0 % [facility] Hemoglobin (Bld) [Mass/Vol] 8.3 g/dL Low 11.7 - 16.0 g/dL [facility] Interpretation and review of laboratory results Abnormal [facility] MCH (RBC) [Entitic mass] 30 pg 26.0 - 34.0 pg [facility] MCHC (RBC) [Mass/Vol] 32.4 % 30.5 - 36.0 % [facility] MCV (RBC) [Entitic vol] 92.4 fL 77.0 - 99.0 fL [facility] Platelet mean volume (Bld) [Entitic vol] 10.5 fL 9.0 - 12.7 fL [facility] Platelets (Bld) [#/Vol] 363 10*3/uL 140 - 440 10*3/uL [facility] RBC (Bld) [#/Vol] 2.77 10*6/uL Low 3.80 - 5.2 0 10*6/uL [facility] WBC (Bld) [#/Vol] 12 10*3/uL High 3.6 - 10.7 10*3/uL [facility] COMPREHENSIVE METABOLIC PANE Fam 09-12-2025 Albumin [Mass/Vol] 1.5 g/dL Low 3.4-4.8 [facility] Comment on above: Performed By: #### L [id number] ####Conservation Coordinator: PHILLY FRANCO ([phone])[facility] ([facility])[address] [place] [address] ALP [Catalytic activity/Vol] 146 U/L Normal 40-150 [facility] Comment on above: Performed By: #### L [id number] ####Conservation Coordinator: PHILLY FRANCO ([phone])[facility] ([facility])[address] [place] [address] ALT [Catalytic activity/Vol] 14 U/L Normal <30 [facility] Comment on above: Performed By: #### L [id number] ####Conservation Coordinator: PHILLY FRANCO ([phone])[facility] ([facility])[address] [place] [address] Anion gap [Moles/Vol] 9 mmol/L Normal 3-13 [facility] Comment on above: Performed By: #### L [id number] ####Conservation Coordinator: PHILLY FRANCO ([phone])[facility] ([facility])[address] [place] [address] AST [Catalytic activity/Vol] 53 U/L High <34 [facility] Comment on above: Performed By: #### L [id number] ####Conservation Coordinator: PHILLY FRANCO ([phone])[facility] ([facility])[address] [place] [address] Bilirubin [Mass/Vol] 0.4 mg/dL Normal <1.2 [facility] Comment on above: Performed By: #### L [id number] ####Conservation Coordinator: PHILLY FRANCO ([phone])[facility] ([facility])[address] [place] [address] Calcium [Mass/Vol] 7.8 mg/dL Low 8.8-10.0 [facility] Comment on above: Performed By: #### L [id number] ####Conservation Coordinator: PHILLY FRANCO ([phone])[facility] ([facility])[address] [place] [address] Chloride [Moles/Vol] 101 mmol/L Normal 98-107 [facility] Comment on above: Performed By: #### L AB17 ####Conservation Coordinator: PHILLY FRANCO ([phone])[facility])[address] [place] [address] CO2 [Moles/Vol] 24 mmol/L Normal 23-[address] [facility] Comment on above: Performed By: #### L AB17 ####Conservation Coordinator: PHILLY FRANCO ([phone])[facility])[address] [place] [address] Creatinine [Mass/Vol] 2.80 mg/dL High 0.57-1.11 [facility] Comment on above: Performed By: #### L [id number] ####Conservation Coordinator: PHILLY FRANCO ([phone])[facility])[address] [place] [address] [place] GLOMERULAR FILTRATION RATE ML/MIN/1.73 SQ M.PREDICTED 17.2 mL/min/1.73m*2 Low >60.[address] [facility] Comment on above: Result Comment: Calc ulation based on the Chronic Kidney Disease Epidemiology Collaboration (CKD-EPI) equation refit without adjustment for race Performed By: #### L [id number] ####Conservation Coordinator: PHILLY FRANCO ([phone])[facility])[address] [place] [address] [place] Glucose [Mass/Vol] 65 mg/dL Low 82-[address] [facility] Comment on above: Performed By: #### L [id number] ####Conservation Coordinator: PHILLY FRANCO ([phone])[facility])[address] [place] [address] [place] Potassium [Moles/Vol] 4.4 mmol/L Normal 3.5-5.1 [facility] Comment on above: Result Comment: [facility] potassium values may be up to 0.5 mmol/L lower than serum values. Performed By: #### L AB17 ####Conservation Coordinator: PHILLY FRANCO ([phone])[facility] [place] [address] Protein [Mass/Vol] 6.5 g/dL Normal 6.4-8.[address] [facility] Comment on above: Performed By: #### L AB17 ####Conservation Coordinator: PHILLY FRANCO ([phone])[facility] [place] [address] Sodium [Moles/Vol] 134 mmol/L Low 136-[address] [facility] Comment on above: Performed By: #### L AB17 ####Conservation Coordinator: PHILLY FRANCO ([phone])[facility] ([facility])[address] [place] [address] Urea nitrogen [Mass/Vol] 12 mg/dL Normal 9-[address] [facility] Comment on above: Performed By: #### L AB17 ####Conservation Coordinator: PHILLY FRANCO ([phone])[facility] [place] [address] Comprehensive metabolic 1998 panelOrdered By: Feliberto Avina on 12-15-2024 Albumin [Mass/Vol] 1.5 g/dL Low 3.4 - 4.8 g/dL [facility] ALP [Catalytic activity/Vol] 146 U/L 40 - 150 U/L [facility] ALT [Catalytic activity/Vol] 14 U/L NINF - 30 U/L [facility] Anion gap [Moles/Vol] 9 mmol/L 3 - 13 mmol/L [facility] AST [Catalytic activity/Vol] 53 U/L High NINF - 34 U/L [facility] Bilirubin [Mass/Vol] 0.4 mg/dL NINF - 1.2 mg/dL [facility] Calcium [Mass/Vol] 7.8 mg/dL Low 8.8 - 10. 0 mg/dL [facility] Chloride [Moles/Vol] 101 mmol/L 98 - 10 7 mmol/L [facility] CO2 [Moles/Vol] 24 mmol/L 23 - 31 mmol/L [facility] Creatinine [Mass/Vol] 2.8 mg/dL High 0.57 - 1.11 mg/dL [facility] GFR/1.73 sq M.predicted (S/P/Bld) [Vol rate/Area] 17.2 mL/min Low - PINF [facility] Glucose [Mass/Vol] 65 mg/dL Low 82 - 115 mg/dL [facility] Interpretation and review of laboratory results Abnormal [facility] Potassium [Moles/Vol] 4.4 mmol/L 3.5 - 5.1 mmol/L [facility] Protein [Mass/Vol] 6.5 g/dL 6.4 - 8.3 g/dL [facility] Sodium [Moles/Vol] 134 mmol/L Low 136 - 145 mmol/L [facility] Urea nitrogen [Mass/Vol] 12 mg/dL 9 - 23 mg/dL [facility] LEVETIRACETAM LEVEL (BKR QUE ST)on 12-15-2024 QUEST LEVETIRACETAM, IMMUNOASSAY 11.3 mcg/mL Normal 6.0-46.0 [facility] Comment on above: Result Comment: Briv aracetam (Briviact(R), Rikelta(R)) exhibitssignificant cross-reactivity in the Levetiracetam(Keppra(R), Spritam(R)) immunoassay. If Brivaracetamhas been prescribed, order test code [id number] by LCMSMS.Test Performed by [employer] [facility],[address] [place] [id number] Orourke M.D., Ph.D., Director of [phone], CLIA [id number] Performed By: #### L [id number] ####[employer] ([employer])[address] [place] [address] [facility] Laboratory - Chemistry and C hemistry - challengeon 12-15-2024 Glucose [Mass/Vol] 104 mg/dL High 70 - 100 mg/dL [facility] Glucose [Mass/Vol] 69 mg/dL Low 70 - 100 mg/dL [facility] Laboratory - Drug toxicology on 12-15-2024 Vancomycin [Mass/Vol] 19 ug/mL [facility] No Panel Informationon 12-15 Interpretation and review of laboratory results Abnormal [facility] Interpretation and review of laboratory results Abnormal [facility] Nursing Noteon 12-15-2024 Nursing Note Normal [facility] Progress Noteon 12-15-2024 Progress Note Normal [facility] Progress Note Normal [facility] Progress Note Normal [facility] Progress Note Normal [facility] Progress Note Normal [facility] VANCOMYCIN, RANDOMon 025 VANCOMYCIN 19.0 ug/mL Normal [facility] Comment on above: Result Comment: GUERO R COMMENTS:Obtain a vancomycin level 4 hours after the END of hemodialysis.Toxicity is seen at concentrations >80-100 ug/mLTherapeutic (Peak) range: 20-40Therapeutic (Trough) range: 5-10 Performed By: #### L AB40 ####Conservation Coordinator: PHILLY FRANCO ([phone])[facility] ([facility])[address] [place] [address] [id number] 12-14-[id number] [facility] AMMONIAon 12-14-2024 Ammonia (P) [Moles/Vol] 26 umol/L Normal 18-72 [facility] Comment on above: Performed By: #### L AB47 ####Conservation Coordinator: PHILLY FRANCO ([phone])[facility] ([facility])[address] [place] [address] BLOOD TYPE AND SCREEN GELon 12-14-2024 ABO GROUPING O Normal [facility] Comment on above: Performed By: #### L [id number] ####Conservation Coordinator: PHILLY FRANCO ([phone])[facility] BLOOD BANK ([facility])[address] [place] [address] RH TYPE IN BLOOD Positive Normal [facility] Comment on above: Performed By: #### L [id number] ####Conservation Coordinator: PHILLY FRANCO ([phone])[facility] BLOOD BANK ([facility])[address] [place] [address] Blood type and Crossmatch pa kojo (Bld)on 12-14-2024 ABO group Nom (Bld) O [facility] Blood group antibody screen GEL Ql Negative [facility] D Ag Ql (RBC) Positive [facility] CBC (HEMOGRAM)on 12-14-2024 HEMATOCRIT Normal 35.0-47.[address] [facility] Comment on above: Result Comment: Disr egard previously reported results.Corrected result: Previously reported as 20.8 % (reference range: 35.0-47.0 %) on 12/14/2024 at 0147 EDT. Performed By: #### L [id number] ####Conservation Coordinator: PHILLY FRANCO ([phone])[facility])[address] [place] [address] HEMOGLOBIN Normal 11.7-16.[address] [facility] Comment on above: Result Comment: Disr egard previously reported results.Corrected result: Previously reported as 6.5 g/dL (reference range: 11.7-16.0 g/dL) on 12/14/2024 at 0147 EDT. Performed By: #### L [id number] ####Conservation Coordinator: PHILLY FRANCO ([phone])[address] MCH Normal 26.0-34.[address] [facility] Comment on above: Result Comment: Disr egard previously reported results.Corrected result: Previously reported as 29.4 pg (reference range: 26.0-34.0 pg) on 12/14/2024 at 0147 EDT. Performed By: #### L [id number] ####Conservation Coordinator: PHILLY FRANCO ([phone])[address] MCHC Normal 30.5-36.[address] [facility] Comment on above: Result Comment: Disr egard previously reported results.Corrected result: Previously reported as 31.3 % (reference range: 30.5-36.0 %) on 12/14/2024 at 0147 EDT. Performed By: #### L [id number] ####Conservation Coordinator: PHILLY FRANCO ([phone])[address] MCV Normal 77.0-99.[address] [facility] Comment on above: Result Comment: Disr egard previously reported results.Corrected result: Previously reported as 94.1 fL (reference range: 77.0-99.0 fL) on 12/14/2024 at 0147 EDT. Performed By: #### L [id number] ####Conservation Coordinator: PHILLY FRANCO ([phone])[facility])[address] [place] [address] MPV Normal 9.0-12.[address] [facility] Comment on above: Result Comment: Disr egard previously reported results.Corrected result: Previously reported as 10.6 fL (reference range: 9.0-12.7 fL) on 12/14/2024 at 0147 EDT.ORDER COMMENTS:Disregard previously reported results.Specimen contaminated with iv fluid Performed By: #### L [id number] ####Conservation Coordinator: PHILLY FRANCO ([phone])[address] PLATELET COUNT Normal 140-[address] [facility] Comment on above: Result Comment: Disr egard previously reported results.Corrected result: Previously reported as 274 10*3/uL (reference range: 140-440 10*3/uL) on 12/14/2024 at 0147 EDT. Performed By: #### L [id number] ####Conservation Coordinator: PHILLY FRANCO ([phone])[facility])[address] [place] [address] RBC Normal 3.80-5.[address] [facility] Comment on above: Result Comment: Disr egard previously reported results.Corrected result: Previously reported as 2.21 10*6/uL (reference range: 3.80-5.20 10*6/uL) on 12/14/2024 at 0147 EDT. Performed By: #### L [id number] ####Conservation Coordinator: PHILLY FRANCO ([phone])[facility])[address] [place] [address] RDW Normal 11.5-15.[address] [facility] Comment on above: Result Comment: Disr egard previously reported results.Corrected result: Previously reported as 17.2 % (reference range: 11.5-15.0 %) on 12/14/2024 at 0147 EDT. Performed By: #### L [id number] ####Conservation Coordinator: PHILLY FRANCO ([phone])[facility] ([facility])[address] [place] [address] WBC Normal 3.6-10.7 [facility] Comment on above: Result Comment: Markusr david previously reported results.Corrected result: Previously reported as 11.9 10*3/uL (reference range: 3.6-10.7 10*3/uL) on 12/14/2024 at 0147 EDT. Performed By: #### L [id number] ####Conservation Coordinator: PHILLY FRANCO ([phone])[facility] ([facility])[address] [place] [address] CBC W Auto Differential pane l (Bld)Ordered By: Alison Jain on 12-14-2024 Basophils (Bld) [#/Vol] 0.1 10*3/uL 0.0 - 0.2 10*3/uL [facility] [employer] Basophils/100 WBC (Bld) 0.8 % 0.0 - 2.0 % [facility] Eosinophils (Bld) [#/Vol] 0.4 10*3/uL 0.0 - 0.5 10*3/uL [facility] Eosinophils/100 WBC (Bld) 3.3 % 0.0 - 6.0 % [facility] Erythrocyte distribution width (RBC) [Ratio] 17.2 % High 11.5 - 15.0 % [facility] Hematocrit (Bld) [Volume fraction] 23.6 % Low 35.0 - 47.0 % [facility] Hemoglobin (Bld) [Mass/Vol] 7.5 g/dL Low 11.7 - 16.0 g/dL [facility] [employer] Immature granulocytes (Bld) [#/Vol] 0.1 10*3/uL High NINF - 0.1 10*3/uL [facility] [employer] Immature granulocytes/100 WBC (Bld) 0.4 % 0.0 - 2.0 % [facility] Interpretation and review of laboratory results Abnormal [facility] [employer] Lymphocytes (Bld) [#/Vol] 1.2 10*3/uL 1.0 - 4.3 10*3/uL [facility] Lymphocytes/100 WBC (Bld) 9 % Low 15.0 - 45.0 % [facility] MCH (RBC) [Entitic mass] 29.3 pg 26.0 - 34.0 pg [facility] MCHC (RBC) [Mass/Vol] 31.8 % 30.5 - 36.0 % [facility] MCV (RBC) [Entitic vol] 92.2 fL 77.0 - 99.0 fL [facility] Monocytes (Bld) [#/Vol] 1 10*3/uL High 0.0 - 0.9 10*3/uL [facility] Monocytes/100 WBC (Bld) 7.6 % 5.0 - 13.0 % [facility] Neutrophils (Bld) [#/Vol] 10.4 10*3/uL High 1.8 - 7.5 10*3/uL [facility] Neutrophils/100 WBC (Bld) 78.9 % 38.0 - 82.0 % [facility] Nucleated RBC/100 WBC (Bld) [Ratio] 0 % [facility] Platelet mean volume (Bld) [Entitic vol] 10.6 fL 9.0 - 12.7 fL [facility] Platelets (Bld) [#/Vol] 305 10*3/uL 140 - 440 10*3/uL [facility] RBC (Bld) [#/Vol] 2.56 10*6/uL Low 3.80 - 5.2 0 10*6/uL [facility] WBC (Bld) [#/Vol] 13.1 10*3/uL High 3.6 - 10.7 10*3/uL [facility] CBC WITH AUTO DIFFERENTIALon 12-14-2024 Basophils (Bld) [#/Vol] 0.1 10*3/uL Normal 0.0-0.[address] [facility] Comment on above: Performed By: #### L [id number] ####Conservation Coordinator: PHILLY FRANCO ([phone])[facility] ([address] Basophils/100 WBC (Bld) 0.8 % Normal 0.0-2.0 [facility] Comment on above: Performed By: #### L [id number] ####Conservation Coordinator: PHILLY FRANCO ([phone])[facility])[address] [place] [address] Eosinophils (Bld) [#/Vol] 0.4 10*3/uL Normal 0.0-0.5 [facility] Comment on above: Performed By: #### L [id number] ####Conservation Coordinator: PHILLY FRANCO ([phone])[facility])[address] [place] [address] Eosinophils/100 WBC (Bld) 3.3 % Normal 0.0-6.0 [facility] Comment on above: Performed By: #### L [id number] ####Conservation Coordinator: PHILLY FRANCO ([phone])[address] Erythrocyte distribution width (RBC) [Ratio] 17.2 % High 11.5-15.0 [facility] Comment on above: Performed By: #### L [id number] ####Conservation Coordinator: PHILLY FRANCO ([phone])[address] Hematocrit (Bld) [Volume fraction] 23.6 % Low 35.0-47.0 [facility] Comment on above: Performed By: #### L [id number] ####Conservation Coordinator: PHILLY FRANCO ([phone])[address] Hemoglobin (Bld) [Mass/Vol] 7.5 g/dL Low 11.7-16.0 [facility] Comment on above: Performed By: #### L [id number] ####Conservation Coordinator: PHILLY FRANCO ([phone])[address] IMMATURE GRANS % 0.4 % Normal 0.0-2.0 [facility] Comment on above: Performed By: #### L [id number] ####Conservation Coordinator: PHILLY FRANCO ([phone])[facility] ([facility])[address] [place] [address] IMMATURE GRANS ABSOLUTE 0.1 10*3/uL High <0.1 [facility] Comment on above: Performed By: #### L [id number] ####Conservation Coordinator: PHILLY FRANCO ([phone])[facility])[address] [place] [address] Lymphocytes (Bld) [#/Vol] 1.2 10*3/uL Normal 1.0-4.3 [facility] Comment on above: Performed By: #### L [id number] ####Conservation Coordinator: PHILLY FRANCO ([phone])[facility])[address] [place] [address] Lymphocytes/100 WBC (Bld) 9.0 % Low 15.0-45.0 [facility] Comment on above: Performed By: #### L [id number] ####Conservation Coordinator: PHILLY FRANCO ([phone])[facility])[address] [place] [address] MCH (RBC) [Entitic mass] 29.3 pg Normal 26.0-34.0 [facility] Comment on above: Performed By: #### L [id number] ####Conservation Coordinator: PHILLY FRANCO ([phone])[facility])[address] [place] [address] MCHC 31.8 % Normal 30.5-36.0 [facility] Comment on above: Performed By: #### L [id number] ####Conservation Coordinator: PHILLY FRANCO ([phone])[facility])[address] [place] [address] MCV (RBC) [Entitic vol] 92.2 fL Normal 77.0-99.0 [facility] Comment on above: Performed By: #### L [id number] ####Conservation Coordinator: PHILLY FRANCO ([phone])[facility])[address] [place] [address] Monocytes (Bld) [#/Vol] 1.0 10*3/uL High 0.0-0.9 [facility] Comment on above: Performed By: #### L [id number] ####Conservation Coordinator: PHILLY FRANCO ([phone])[facility] ([facility])[address] [place] [address] Monocytes/100 WBC (Bld) 7.6 % Normal 5.0-13.0 [facility] Comment on above: Performed By: #### L [id number] ####Conservation Coordinator: PHILLY FRANCO ([phone])[facility] ([facility])[address] [place] [address] NEUTROPHILS ABSOLUTE 10.4 10*3/uL High 1.8-7.5 [facility] Comment on above: Performed By: #### L [id number] ####Conservation Coordinator: PHILLY FRANCO ([phone])[facility] ([facility])[address] [place] [address] Neutrophils/100 WBC (Bld) 78.9 % Normal 38.0-82.0 [facility] Comment on above: Performed By: #### L [id number] ####Conservation Coordinator: PHILLY FRANCO ([phone])[facility] ([facility])[address] [place] [address] NRBC 0.0 /100 WBCs Normal 0.0-2.0 [facility] Comment on above: Performed By: #### L [id number] ####Conservation Coordinator: PHILLY FRANCO ([phone])[facility] ([facility])[address] [place] [address] Platelet mean volume (Bld) [Entitic vol] 10.6 fL Normal 9.0-12.7 [facility] Comment on above: Performed By: #### L [id number] ####Conservation Coordinator: PHILLY FRANCO ([phone])[facility] ([facility])[address] [place] [address] Platelets (Bld) [#/Vol] 305 10*3/uL Normal 140-440 [facility] Comment on above: Performed By: #### L [id number] ####Conservation Coordinator: PHILLY FRANCO ([phone])[facility] ([facility])[address] [place] [address] RBC (Bld) [#/Vol] 2.56 10*6/uL Low 3.80-5.[address] [facility] Comment on above: Performed By: #### L [id number] ####Conservation Coordinator: PHILLY FRANCO ([phone])[facility] ([facility])[address] [place] [address] WBC (Bld) [#/Vol] 13.1 10*3/uL High 3.6-10.[address] [facility] Comment on above: Performed By: #### L [id number] ####Conservation Coordinator: PHILLY FRANCO ([phone])[facility] ([facility])[address] [place] [address] CBC panel Auto (Bld)Ordered By: Beatriz Morales on 12-14-2024 Erythrocyte distribution width (RBC) [Ratio] [facility] Hematocrit (Bld) [Volume fraction] [facility] Hemoglobin (Bld) [Mass/Vol] [facility] MCH (RBC) [Entitic mass] [facility] MCHC (RBC) [Mass/Vol] [facility] MCV (RBC) [Entitic vol] S [facility] Platelet mean volume (Bld) [Entitic vol] [facility] Platelets (Bld) [#/Vol] [facility] RBC (Bld) [#/Vol] [facility] WBC (Bld) [#/Vol] [facility] COMPREHENSIVE METABOLIC PANE Fam 12-14-2024 Albumin [Mass/Vol] 1.4 g/dL Low 3.4-4.8 [facility] Comment on above: Performed By: #### L AB113, LAB17 ####Conservation Coordinator: PHILLY FRANCO ([phone])[facility] ([facility])[address] [place] [address] ALP [Catalytic activity/Vol] 131 U/L Normal 40-150 [facility] Comment on above: Performed By: #### L AB113, LAB17 ####Conservation Coordinator: PHILLY FRANCO ([phone])[facility] [place] [address] [place] ALT [Catalytic activity/Vol] 13 U/L Normal <30 [facility] Comment on above: Performed By: #### L AB113, LAB17 ####Conservation Coordinator: PHILLY FRANCO ([phone])[facility] ([facility])[address] [place] [address] [place] Anion gap [Moles/Vol] 9 mmol/L Normal 3-13 [facility] Comment on above: Performed By: #### L AB113, LAB17 ####Conservation Coordinator: PHILLY FRANCO ([phone])[facility] ([facility])[address] [place] [address] AST [Catalytic activity/Vol] 50 U/L High <34 [facility] Comment on above: Performed By: #### L ABAntonio, LAB17 ####Conservation Coordinator: PHILLY FRANCO ([phone])[facility] ([facility])[address] [place] [address] Bilirubin [Mass/Vol] 0.4 mg/dL Normal <1.2 [facility] Comment on above: Performed By: #### L ABAntonio, LAB17 ####Conservation Coordinator: HPILLY FRANCO ([phone])[facility] ([facility])[address] [place] [address] [place] Calcium [Mass/Vol] 7.5 mg/dL Low 8.8-10.0 [facility] Comment on above: Performed By: #### L AB113, LAB17 ####Conservation Coordinator: PHILLY FRANCO ([phone])[facility] ([facility])[address] [place] [address] [place] Chloride [Moles/Vol] 96 mmol/L Low 98-107 [facility] Comment on above: Performed By: #### L AB113, LAB17 ####Conservation Coordinator: PHILLY FRANCO ([phone])[facility] ([facility])[address] [place] [address] [place] CO2 [Moles/Vol] 25 mmol/L Normal 23-[address] [facility] Comment on above: Performed By: #### L ABAntonio, LAB17 ####Conservation Coordinator: PHILLY FRANCO ([phone])[facility])[address] [place] [address] Creatinine [Mass/Vol] 4.37 mg/dL High 0.57-1.11 [facility] Comment on above: Performed By: #### L ABAntonio, LAB17 ####Conservation Coordinator: PHILLY FRANCO ([phone])[facility])[address] [place] [address] GLOMERULAR FILTRATION RATE ML/MIN/1.73 SQ M.PREDICTED 10.1 mL/min/1.73m*2 Low >60.[address] [facility] Comment on above: Result Comment: Calc ulation based on the Chronic Kidney Disease Epidemiology Collaboration (CKD-EPI) equation refit without adjustment for race Performed By: #### L SHAYNE, LAB17 ####Conservation Coordinator: PHILLY FRANCO ([phone])[facility])[address] [place] [address] Glucose [Mass/Vol] 95 mg/dL Normal 82-[address] [facility] Comment on above: Performed By: #### Jose BELLA, LAB17 ####Conservation Coordinator: PHILLY FRANCO ([phone])[address] Potassium [Moles/Vol] 3.7 mmol/L Normal 3.5-5.1 [facility] Comment on above: Result Comment: [facility] potassium values may be up to 0.5 mmol/L lower than serum values. Performed By: #### L AB113, LAB17 ####Conservation Coordinator: PHILLY FRANCO ([phone])[facility])[address] [place] [address] Protein [Mass/Vol] 6.2 g/dL Low 6.4-8.[address] [facility] Comment on above: Performed By: #### L ABAntonio, LAB17 ####Conservation Coordinator: PHILLY FRANCO ([phone])[facility])[address] [place] [address] Sodium [Moles/Vol] 130 mmol/L Low 136-145 [facility] Comment on above: Performed By: #### L AB113, LAB17 ####Conservation Coordinator: PHILLY FRANCO ([phone])[facility] ([facility])[address] [place] [address] Urea nitrogen [Mass/Vol] 26 mg/dL High 9-23 [facility] Comment on above: Performed By: #### L AB113, LAB17 ####Conservation Coordinator: PHILLY FRANCO ([phone])[facility] ([facility])[address] [place] [address] Comprehensive metabolic 1998 panelon 12-14-2024 Albumin [Mass/Vol] 1.4 g/dL Low 3.4 - 4.8 g/dL [facility] ALP [Catalytic activity/Vol] 131 U/L 40 - 150 U/L [facility] ALT [Catalytic activity/Vol] 13 U/L NINF - 30 U/L [facility] Anion gap [Moles/Vol] 9 mmol/L 3 - 13 mmol/L [facility] AST [Catalytic activity/Vol] 50 U/L High NINF - 34 U/L [facility] Bilirubin [Mass/Vol] 0.4 mg/dL NINF - 1.2 mg/dL [facility] Calcium [Mass/Vol] 7.5 mg/dL Low 8.8 - 10. 0 mg/dL [facility] Chloride [Moles/Vol] 96 mmol/L Low 98 - 10 7 mmol/L [facility] CO2 [Moles/Vol] 25 mmol/L 23 - 31 mmol/L [facility] Creatinine [Mass/Vol] 4.37 mg/dL High 0.57 - 1.11 mg/dL [facility] GFR/1.73 sq M.predicted (S/P/Bld) [Vol rate/Area] 10.1 mL/min Low - PINF [facility] Glucose [Mass/Vol] 95 mg/dL 82 - 115 mg/dL [facility] Interpretation and review of laboratory results Abnormal [facility] Potassium [Moles/Vol] 3.7 mmol/L 3.5 - 5.1 mmol/L [facility] Protein [Mass/Vol] 6.2 g/dL Low 6.4 - 8.3 g/dL [facility] Sodium [Moles/Vol] 130 mmol/L Low 136 - 145 mmol/L [facility] Urea nitrogen [Mass/Vol] 26 mg/dL High 9 - 23 mg/dL [facility] Consulton 12-14-[address] [facility] Laboratory - Chemistry and C hemistry - challengeon 12-14-2024 Glucose [Mass/Vol] 117 mg/dL High 70 - 100 mg/dL [facility] Glucose [Mass/Vol] 96 mg/dL 70 - 100 mg/dL [facility] Glucose [Mass/Vol] 104 mg/dL High 70 - 100 mg/dL [facility] Ammonia (P) [Moles/Vol] 26 umol/L 18 - 72 umol/L [facility] Glucose [Mass/Vol] 98 mg/dL 70 - 100 mg/dL [facility] No Panel Informationon 12-14 Interpretation and review of laboratory results Abnormal [facility] Interpretation and review of laboratory results Normal [facility] Interpretation and review of laboratory results Abnormal [facility] Interpretation and review of laboratory results Normal [facility] Interpretation and review of laboratory results Normal [facility] Nursing Noteon 12-14-2024 Nursing Note Normal [facility] PHOSPHORUSon 12-14-2024 Phosphate [Mass/Vol] 2.3 mg/dL Normal 2.3-4.7 [facility] Comment on above: Performed By: #### L AB113, LAB17 ####Conservation Coordinator: PHILLY FRANCO ([phone])[facility] ([address] Phosphate [Moles/Vol]on 12-04 Interpretation and review of laboratory results Normal [facility] Phosphate [Mass/Vol] 2.3 mg/dL 2.3 - 4 .7 mg/dL [facility] Progress Noteon 12-14-2024 Progress Note Normal [facility] Progress Note Normal [facility] Progress Note Normal [facility] Progress Note Normal [facility] Progress Note Normal [facility] Progress Note Normal [facility] Progress Note Normal [facility] [id number] 12-13-[id number] [facility] [id number] Normal [facility] BASIC METABOLIC PANELon 12-04 Anion gap [Moles/Vol] 9 mmol/L Normal 3-13 [facility] Comment on above: Performed By: #### L AB67, LAB15, [id number], [id number] ####Conservation Coordinator: PHILLY FRANCO ([phone])[facility])[address] [place] [address] Calcium [Mass/Vol] 7.8 mg/dL Low 8.8-10.[address] [facility] Comment on above: Performed By: #### L AB67, LAB15, [id number], [id number] ####Conservation Coordinator: PHILLY FRANCO ([phone])[facility] ([facility])[address] [place] [address] Chloride [Moles/Vol] 100 mmol/L Normal 98-107 [facility] Comment on above: Performed By: #### L AB67, LAB15, [id number], [id number] ####Conservation Coordinator: PHILLY FRANCO ([phone])[facility] ([facility])[address] [place] [address] CO2 [Moles/Vol] 25 mmol/L Normal 23-[address] [facility] Comment on above: Performed By: #### L AB67, LAB15, [id number], [id number] ####Conservation Coordinator: PHILLY FRANCO ([phone])[facility])[address] [place] [address] Creatinine [Mass/Vol] 3.82 mg/dL High 0.57-1.11 [facility] Comment on above: Performed By: #### L AB67, LAB15, [id number], [id number] ####Conservation Coordinator: PHILLY FRANCO ([phone])[facility])[address] [place] [address] GLOMERULAR FILTRATION RATE ML/MIN/1.73 SQ M.PREDICTED 11.9 mL/min/1.73m*2 Low >60.[address] [facility] Comment on above: Result Comment: Calc ulation based on the Chronic Kidney Disease Epidemiology Collaboration (CKD-EPI) equation refit without adjustment for race Performed By: #### L AB67, LAB15, [id number], [id number] ####Conservation Coordinator: PHILLY FRANCO ([phone])[facility] ([facility])[address] [place] [address] Glucose [Mass/Vol] 47 mg/dL Critically low 82-115 [facility] Comment on above: Performed By: #### L AB67, LAB15, [id number], [id number] ####Conservation Coordinator: PHILLY FRANCO ([phone])[facility])[address] [place] [address] Potassium [Moles/Vol] 4.2 mmol/L Normal 3.5-5.1 [facility] Comment on above: Result Comment: [facility] potassium values may be up to 0.5 mmol/L lower than serum values. Performed By: #### L AB67, LAB15, [id number], [id number] ####Conservation Coordinator: PHILLY FRANCO ([phone])[facility] ([facility])[address] [place] [address] Sodium [Moles/Vol] 134 mmol/L Low 136-[address] [facility] Comment on above: Performed By: #### L AB67, LAB15, [id number], [id number] ####Conservation Coordinator: PHILLY FRANCO ([phone])[facility] ([facility])[address] [place] [address] Urea nitrogen [Mass/Vol] 22 mg/dL Normal 9-[address] [facility] Comment on above: Performed By: #### L AB67, LAB15, [id number], [id number] ####Conservation Coordinator: PHILLY FRANCO ([phone])[facility])[address] [place] [address] Basic metabolic 1998 panelOr dered By: Yogi Stanley on 12-13-2024 Anion gap [Moles/Vol] 9 mmol/L 3 - 13 mmol/L [facility] Calcium [Mass/Vol] 7.8 mg/dL Low 8.8 - 10. 0 mg/dL [facility] Chloride [Moles/Vol] 100 mmol/L 98 - 10 7 mmol/L [facility] CO2 [Moles/Vol] 25 mmol/L 23 - 31 mmol/L [facility] Creatinine [Mass/Vol] 3.82 mg/dL High 0.57 - 1.11 mg/dL [facility] GFR/1.73 sq M.predicted (S/P/Bld) [Vol rate/Area] 11.9 mL/min Low - PINF [facility] Glucose [Mass/Vol] 47 mg/dL Critically low 82 - 11 5 mg/dL [facility] Interpretation and review of laboratory results Abnormal [facility] Potassium [Moles/Vol] 4.2 mmol/L 3.5 - 5.1 mmol/L [facility] Sodium [Moles/Vol] 134 mmol/L Low 136 - 145 mmol/L [facility] Urea nitrogen [Mass/Vol] 22 mg/dL 9 - 23 mg/dL [facility] C-REACTIVE PROTEINon 025 CRP [Mass/Vol] 133.0 mg/L High <5.[address] [facility] Comment on above: Performed By: #### L AB67, LAB15, [id number], [id number] ####Conservation Coordinator: PHILLY FRANCO ([phone])[address] CBC (HEMOGRAM)on 12-13-2024 Erythrocyte distribution width (RBC) [Ratio] 17.6 % High 11.5-15.[address] [facility] Comment on above: Performed By: #### L [id number] ####Conservation Coordinator: PHILLY FRANCO ([phone])[facility] ([facility])[address] [place] [address] Hematocrit (Bld) [Volume fraction] 25.3 % Low 35.0-47.[address] [facility] Comment on above: Performed By: #### L [id number] ####Conservation Coordinator: PHILLY FRANCO ([phone])[facility])[address] [place] [address] Hemoglobin (Bld) [Mass/Vol] 8.0 g/dL Low 11.7-16.0 [facility] Comment on above: Performed By: #### L [id number] ####Conservation Coordinator: PHILLY FRANCO ([phone])[facility])[address] [place] [address] MCH (RBC) [Entitic mass] 29.1 pg Normal 26.0-34.0 [facility] Comment on above: Performed By: #### L [id number] ####Conservation Coordinator: PHILLY FRANCO ([phone])[facility])[address] [place] [address] MCHC 31.6 % Normal 30.5-36.0 [facility] Comment on above: Performed By: #### L [id number] ####Conservation Coordinator: PHILLY FRANCO ([phone])[facility])[address] [place] [address] MCV (RBC) [Entitic vol] 92.0 fL Normal 77.0-99.0 [facility] Comment on above: Performed By: #### L [id number] ####Conservation Coordinator: PHILLY FRANCO ([phone])[facility] ([facility])[address] [place] [address] Platelet mean volume (Bld) [Entitic vol] 10.5 fL Normal 9.0-12.7 [facility] Comment on above: Performed By: #### L [id number] ####Conservation Coordinator: PHILLY FRANCO ([phone])[facility])[address] [place] [address] Platelets (Bld) [#/Vol] 312 10*3/uL Normal 140-440 [facility] Comment on above: Performed By: #### L [id number] ####Conservation Coordinator: PHILLY FRANCO ([phone])[facility])[address] [place] [address] RBC (Bld) [#/Vol] 2.75 10*6/uL Low 3.80-5.20 [facility] Comment on above: Performed By: #### L [id number] ####Conservation Coordinator: PHILLY FRANCO ([phone])[facility] ([facility])[address] [place] [address] WBC (Bld) [#/Vol] 16.5 10*3/uL High 3.6-10.[address] [facility] Comment on above: Performed By: #### L [id number] ####Conservation Coordinator: PHILLY FRANCO ([phone])[facility] ([facility])[address] [place] [address] CBC panel Auto (Bld)on 12-13 Erythrocyte distribution width (RBC) [Ratio] 17.6 % High 11.5 - 15.0 % [facility] Hematocrit (Bld) [Volume fraction] 25.3 % Low 35.0 - 47.0 % [facility] Hemoglobin (Bld) [Mass/Vol] 8 g/dL Low 11.7 - 16.0 g/dL [facility] Interpretation and review of laboratory results Abnormal [facility] MCH (RBC) [Entitic mass] 29.1 pg 26.0 - 34.0 pg [facility] MCHC (RBC) [Mass/Vol] 31.6 % 30.5 - 36.0 % [facility] MCV (RBC) [Entitic vol] 92 fL 77.0 - 99.0 fL [facility] Platelet mean volume (Bld) [Entitic vol] 10.5 fL 9.0 - 12.7 fL [facility] Platelets (Bld) [#/Vol] 312 10*3/uL 140 - 440 10*3/uL [facility] RBC (Bld) [#/Vol] 2.75 10*6/uL Low 3.80 - 5.2 0 10*6/uL [facility] WBC (Bld) [#/Vol] 16.5 10*3/uL High 3.6 - 10.7 10*3/uL [facility] CRP [Mass/Vol]on 12-13-2024 Interpretation and review of laboratory results Abnormal [facility] Cobalamin (Vitamin B12) [Mas s/Vol]on 12-13-2024 Interpretation and review of laboratory results Abnormal [facility] Consulton 12-13-2024 Consult Normal [facility] Consult Normal [facility] Consult Normal [facility] ECG 12-LEADon 12-13-2024 ECG 12-LEAD IMPRESSION: Sinus rhythm Probable LVH with secondary repol abnrm Electronically Signed On 12-13-2024 19:24:44 EDT by Bhavik Estrada Normal [facility] Laboratory - Chemistry and C hemistry - challengeon 12-13-2024 Glucose [Mass/Vol] 105 mg/dL High 70 - 100 mg/dL [facility] Cobalamin (Vitamin B12) [Mass/Vol] 1419 pg/mL High 213 - 816 pg/mL [facility] TSH Qn 0.83 m[IU]/L [facility] Glucose [Mass/Vol] 105 mg/dL High 70 - 100 mg/dL [facility] CRP [Mass/Vol] 133 mg/L High NINF - 5.0 mg/L [facility] Glucose [Mass/Vol] 78 mg/dL 70 - 100 mg/dL [facility] Glucose [Mass/Vol] 55 mg/dL Low 70 - 100 mg/dL [facility] Laboratory - Drug toxicology on 12-13-2024 Vancomycin [Mass/Vol] 15.4 ug/mL [facility] [employer] No Panel InformationOrdered By: Bhavik Estrada on 12-13-2024 P [place] 61 degrees [facility] [employer] Work Phone: KS Interval 121 ms [facility] [employer] Work Phone: QRS [place] 20 degrees [facility] [employer] Work Phone: QRSD Interval 72 ms [facility] [employer] Work Phone: QT Interval 360 ms [facility] [employer] Work Phone: QTC Interval 451 ms [facility] [employer] Work Phone: T Wave [place] 19 degrees [facility] [employer] Work Phone: [facility] [employer] Work Phone: No Panel Informationon 12-13 CV EPIPHANY [facility] Interpretation and review of laboratory results Abnormal [facility] Interpretation and review of laboratory results Abnormal [facility] Interpretation and review of laboratory results Normal [facility] Interpretation and review of laboratory results Abnormal [facility] Nursing Noteon 12-13-2024 Nursing Note Brother Deshawn notified of using soft wrist restrained. Normal [facility] Nursing Note Unable to run pt tonight due to access issues, Dr Castaneda notified, order of cathflow ordered and placed in the access. Access to be reassessed in the morning. This RN will relay message to AM charge nurse. Normal [facility] Nursing Note Normal [facility] Progress Noteon 12-13-2024 Progress Note Normal [facility] Progress Note Normal [facility] Progress Note Normal [facility] Progress Note Normal [facility] Progress Note Normal [facility] Progress Note PHYSICAL THERAPY [facility] Name/MRN: Apoorva Gonzalez ([id number]) Date: 12/13/2024 Plans for MRI with sedation, also has pending shoulder x-rays. Will continue to hold and assess at a later time as able. Guilherme Tavares, PT Normal [facility] Progress Note Normal [facility] Progress Note To schedule mri with sedation please call [phone] [facility] THYROID STIMULATING HORMONEo n 12-13-2024 THYROID STIMULATING HORMONE 0.83 uIU/mL Normal 0.35-4.[address] [facility] Comment on above: Performed By: #### L AB67, LAB15, [id number], [id number] ####Conservation Coordinator: PHILLY FRANCO ([phone])[facility] ([address] TSH Qnon 12-13-2024 Interpretation and review of laboratory results Normal [facility] VANCOMYCIN, RANDOMon 025 VANCOMYCIN 15.4 ug/mL Normal [facility] Comment on above: Result Comment: ORDE R COMMENTS:Please obtain 4 hours after the end of hemodialysisToxicity is seen at concentrations >80-100 ug/mLTherapeutic (Peak) range: 20-40Therapeutic (Trough) range: 5-10 Performed By: #### L AB40 ####Conservation Coordinator: PHILLY FRANCO ([phone])[facility] ([facility])[address] [place] [address] VITAMIN B12on 12-13-2024 Cobalamin (Vitamin B12) [Mass/Vol] 1419 pg/mL High 213-[address] [facility] Comment on above: Performed By: #### L AB67, LAB15, [id number], [id number] ####Conservation Coordinator: PHILLY FRANCO ([phone])[facility] ([facility])[address] [place] [address] Vital signsOrdered By: [place] Estrada on 12-13-2024 Heart rate 94 /min bpm [facility] [employer] Work Phone: XR SHOULDER 2+ VIEWS LEFTon 12-13-2024 XR SHOULDER 2+ VIEWS LEFT Normal [facility] XR Shoulder - left 2 Viewson 12-13-2024 [facility] Radiology Study observation (narrative) [facility] XR Shoulder - left 2 ViewsOr dered By: Barrera Stack on 12-13-2024 [facility] [employer] Work Phone: [phone] 12-12-[id number] [facility] [id number] 12-12-[id number] [facility] BLOOD CULTUREon 12-12-2024 Bacteria identified Cx Nom (Bld) Normal [facility] Comment on above: Performed By: #### L [id number] ####Conservation Coordinator: PHILLY FRANCO ([phone])[facility] ([facility])[address] [place] [address] CBC W Auto Differential pane l (Bld)on 12-12-2024 Basophils (Bld) [#/Vol] 0.1 10*3/uL 0.0 - 0.2 10*3/uL [facility] Basophils/100 WBC (Bld) 1.2 % 0.0 - 2.0 % [facility] Eosinophils (Bld) [#/Vol] 0.2 10*3/uL 0.0 - 0.5 10*3/uL [facility] Eosinophils/100 WBC (Bld) 2.1 % 0.0 - 6.0 % [facility] Erythrocyte distribution width (RBC) [Ratio] 17.8 % High 11.5 - 15.0 % [facility] Hematocrit (Bld) [Volume fraction] 24.8 % Low 35.0 - 47.0 % [facility] Hemoglobin (Bld) [Mass/Vol] 8 g/dL Low 11.7 - 16.0 g/dL [facility] [employer] Immature granulocytes (Bld) [#/Vol] 0.1 10*3/uL High NINF - 0.1 10*3/uL [facility] Immature granulocytes/100 WBC (Bld) 0.4 % 0.0 - 2.0 % [facility] Interpretation and review of laboratory results Abnormal [facility] Lymphocytes (Bld) [#/Vol] 1 10*3/uL 1.0 - 4.3 10*3/uL [facility] Lymphocytes/100 WBC (Bld) 8.5 % Low 15.0 - 45.0 % [facility] MCH (RBC) [Entitic mass] 29.7 pg 26.0 - 34.0 pg [facility] MCHC (RBC) [Mass/Vol] 32.3 % 30.5 - 36.0 % [facility] MCV (RBC) [Entitic vol] 92.2 fL 77.0 - 99.0 fL [facility] [employer] Monocytes (Bld) [#/Vol] 0.6 10*3/uL 0.0 - 0.9 10*3/uL [facility] Monocytes/100 WBC (Bld) 4.9 % Low 5.0 - 13.0 % [facility] Neutrophils (Bld) [#/Vol] 9.5 10*3/uL High 1.8 - 7.5 10*3/uL [facility] Neutrophils/100 WBC (Bld) 82.9 % High 38.0 - 82.0 % [facility] Nucleated RBC/100 WBC (Bld) [Ratio] 0 % [facility] Platelet mean volume (Bld) [Entitic vol] 10.7 fL 9.0 - 12.7 fL [facility] Platelets (Bld) [#/Vol] 332 10*3/uL 140 - 440 10*3/uL [facility] RBC (Bld) [#/Vol] 2.69 10*6/uL Low 3.80 - 5.2 0 10*6/uL [facility] WBC (Bld) [#/Vol] 11.5 10*3/uL High 3.6 - 10.7 10*3/uL [facility] CBC WITH AUTO DIFFERENTIALon 12-12-2024 Basophils (Bld) [#/Vol] 0.1 10*3/uL Normal 0.0-0.2 [facility] Comment on above: Performed By: #### L [id number] ####Conservation Coordinator: PHILLY FRANCO ([phone])[facility])[address] [place] [address] Basophils/100 WBC (Bld) 1.2 % Normal 0.0-2.0 [facility] Comment on above: Performed By: #### L [id number] ####Conservation Coordinator: PHILLY FRANCO ([phone])[facility])[address] [place] [address] Eosinophils (Bld) [#/Vol] 0.2 10*3/uL Normal 0.0-0.5 [facility] Comment on above: Performed By: #### L [id number] ####Conservation Coordinator: PHILLY FRANCO ([phone])[facility])[address] [place] [address] Eosinophils/100 WBC (Bld) 2.1 % Normal 0.0-6.0 [facility] Comment on above: Performed By: #### L [id number] ####Conservation Coordinator: PHILLY FRANCO ([phone])[facility])[address] [place] [address] Erythrocyte distribution width (RBC) [Ratio] 17.8 % High 11.5-15.0 [facility] Comment on above: Performed By: #### L [id number] ####Conservation Coordinator: PHILLY FRANCO ([phone])[facility])[address] [place] [address] Hematocrit (Bld) [Volume fraction] 24.8 % Low 35.0-47.0 [facility] Comment on above: Performed By: #### L [id number] ####Conservation Coordinator: PHILLY FRANCO ([phone])[facility])[address] [place] [address] Hemoglobin (Bld) [Mass/Vol] 8.0 g/dL Low 11.7-16.0 [facility] Comment on above: Performed By: #### L [id number] ####Conservation Coordinator: PHILLY FRANCO ([phone])[facility])[address] [place] [address] IMMATURE GRANS % 0.4 % Normal 0.0-2.0 [facility] Comment on above: Performed By: #### L [id number] ####Conservation Coordinator: PHILLY FRANCO ([phone])[facility])[address] [place] [address] IMMATURE GRANS ABSOLUTE 0.1 10*3/uL High <0.1 [facility] Comment on above: Performed By: #### L [id number] ####Conservation Coordinator: PHILLY FRANCO ([phone])[address] Lymphocytes (Bld) [#/Vol] 1.0 10*3/uL Normal 1.0-4.3 [facility] Comment on above: Performed By: #### L [id number] ####Conservation Coordinator: PHILLY FRANCO ([phone])[facility])[address] [place] [address] Lymphocytes/100 WBC (Bld) 8.5 % Low 15.0-45.0 [facility] Comment on above: Performed By: #### L [id number] ####Conservation Coordinator: PHILLY FRANCO ([phone])[facility])[address] [place] [address] MCH (RBC) [Entitic mass] 29.7 pg Normal 26.0-34.0 [facility] Comment on above: Performed By: #### L [id number] ####Conservation Coordinator: PHILLY FRANCO ([phone])[address] MCHC 32.3 % Normal 30.5-36.0 [facility] Comment on above: Performed By: #### L [id number] ####Conservation Coordinator: PHILLY FRANCO ([phone])[facility] [place] [address] MCV (RBC) [Entitic vol] 92.2 fL Normal 77.0-99.0 [facility] Comment on above: Performed By: #### L [id number] ####Conservation Coordinator: PHILLY FRANCO ([phone])[facility])[address] [place] [address] Monocytes (Bld) [#/Vol] 0.6 10*3/uL Normal 0.0-0.[address] [facility] Comment on above: Performed By: #### L [id number] ####Conservation Coordinator: PHILLY FRANCO ([phone])[facility])[address] [place] [address] Monocytes/100 WBC (Bld) 4.9 % Low 5.0-13.0 [facility] Comment on above: Performed By: #### L [id number] ####Conservation Coordinator: PHILLY FRANCO ([phone])[facility] ([facility])[address] [place] [address] NEUTROPHILS ABSOLUTE 9.5 10*3/uL High 1.8-7.5 [facility] Comment on above: Performed By: #### L [id number] ####Conservation Coordinator: PHILLY FRANCO ([phone])[facility])[address] [place] [address] Neutrophils/100 WBC (Bld) 82.9 % High 38.0-82.0 [facility] Comment on above: Performed By: #### L [id number] ####Conservation Coordinator: PHILLY FRANCO ([phone])[facility] ([facility])[address] [place] [address] NRBC 0.0 /100 WBCs Normal 0.0-2.[address] [facility] Comment on above: Performed By: #### L [id number] ####Conservation Coordinator: PHILLY FRANCO ([phone])[facility] ([facility])[address] [place] [address] Platelet mean volume (Bld) [Entitic vol] 10.7 fL Normal 9.0-12.7 [facility] Comment on above: Performed By: #### L [id number] ####Conservation Coordinator: PHILLY FRANCO ([phone])[facility] ([facility])[address] [place] [address] Platelets (Bld) [#/Vol] 332 10*3/uL Normal 140-440 [facility] Comment on above: Performed By: #### L [id number] ####Conservation Coordinator: PHILLY FRANCO ([phone])[facility] ([facility])[address] [place] [address] RBC (Bld) [#/Vol] 2.69 10*6/uL Low 3.80-5.20 [facility] Comment on above: Performed By: #### L [id number] ####Conservation Coordinator: PHILLY FRANCO ([phone])[facility] ([facility])[address] [place] [address] WBC (Bld) [#/Vol] 11.5 10*3/uL High 3.6-10.7 [facility] Comment on above: Performed By: #### L [id number] ####Conservation Coordinator: PHILLY FRANCO ([phone])[facility] ([facility])[address] [place] [address] COMPREHENSIVE METABOLIC PANE Fam 12-12-2024 Albumin [Mass/Vol] 1.4 g/dL Low 3.4-4.8 [facility] Comment on above: Performed By: #### L [id number] ####Conservation Coordinator: PHILLY FRANCO ([phone])[facility] ([facility])[address] [place] [address] ALP [Catalytic activity/Vol] 131 U/L Normal 40-150 [facility] Comment on above: Performed By: #### L [id number] ####Conservation Coordinator: PHILLY FRANCO ([phone])[facility] ([facility])[address] [place] [address] ALT [Catalytic activity/Vol] 10 U/L Normal <30 [facility] Comment on above: Performed By: #### L [id number] ####Conservation Coordinator: PHILLY FRANCO ([phone])[facility] [place] [address] Anion gap [Moles/Vol] 11 mmol/L Normal 3-13 [facility] Comment on above: Performed By: #### L [id number] ####Conservation Coordinator: PHILLY FRANCO ([phone])[facility] [place] [address] AST [Catalytic activity/Vol] 36 U/L High <34 [facility] Comment on above: Performed By: #### L [id number] ####Conservation Coordinator: PHILLY FRANCO ([phone])[facility] ([facility])[address] [place] [address] Bilirubin [Mass/Vol] 0.4 mg/dL Normal <1.2 [facility] Comment on above: Performed By: #### L [id number] ####Conservation Coordinator: PHILLY FRANCO ([phone])[facility] ([facility])[address] [place] [address] Calcium [Mass/Vol] 7.8 mg/dL Low 8.8-10.0 [facility] Comment on above: Performed By: #### L [id number] ####Conservation Coordinator: PHILLY FRANCO ([phone])[facility] ([facility])[address] [place] [address] [place] Chloride [Moles/Vol] 100 mmol/L Normal 98-107 [facility] Comment on above: Performed By: #### L [id number] ####Conservation Coordinator: PHILLY FRANCO ([phone])[facility] ([facility])[address] [place] [address] [place] CO2 [Moles/Vol] 26 mmol/L Normal 23-31 [facility] Comment on above: Performed By: #### L [id number] ####Conservation Coordinator: PHILLY FRANCO ([phone])[facility] ([facility])[address] [place] [address] [place] Creatinine [Mass/Vol] 5.60 mg/dL High 0.57-1.11 [facility] Comment on above: Performed By: #### L [id number] ####Conservation Coordinator: PHILLY FRANCO ([phone])[facility])[address] [place] [address] GLOMERULAR FILTRATION RATE ML/MIN/1.73 SQ M.PREDICTED 7.5 mL/min/1.73m*2 Low >60.[address] [facility] Comment on above: Result Comment: Calc ulation based on the Chronic Kidney Disease Epidemiology Collaboration (CKD-EPI) equation refit without adjustment for race Performed By: #### L [id number] ####Conservation Coordinator: PHILLY FRANCO ([phone])[facility])[address] [place] [address] Glucose [Mass/Vol] 77 mg/dL Low 82-[address] [facility] Comment on above: Performed By: #### L [id number] ####Conservation Coordinator: PHILLY FRANCO ([phone])[address] Potassium [Moles/Vol] 4.1 mmol/L Normal 3.5-5.1 [facility] Comment on above: Result Comment: [facility] potassium values may be up to 0.5 mmol/L lower than serum values. Performed By: #### L [id number] ####Conservation Coordinator: PHILLY FRANCO ([phone])[address] Protein [Mass/Vol] 6.1 g/dL Low 6.4-8.[address] [facility] Comment on above: Performed By: #### L [id number] ####Conservation Coordinator: PHILLY FRANCO ([phone])[facility])[address] [place] [address] Sodium [Moles/Vol] 137 mmol/L Normal 136-[address] [facility] Comment on above: Performed By: #### L [id number] ####Conservation Coordinator: PHILLY FRANCO ([phone])[facility])[address] [place] [address] Urea nitrogen [Mass/Vol] 38 mg/dL High 9-[address] [facility] Comment on above: Performed By: #### L [id number] ####Conservation Coordinator: PHILLY FRANCO ([phone])[facility] ([facility])[address] [place] [address] CT HEAD WO IV CONTRASTon CT HEAD WO IV CONTRAST Normal [facility] CT Head WO contraston 2024 [facility] Radiology Study observation (narrative) [facility] Comprehensive metabolic 1998 panelon 12-12-2024 Albumin [Mass/Vol] 1.4 g/dL Low 3.4 - 4.8 g/dL [facility] ALP [Catalytic activity/Vol] 131 U/L 40 - 150 U/L [facility] ALT [Catalytic activity/Vol] 10 U/L NINF - 30 U/L [facility] Anion gap [Moles/Vol] 11 mmol/L 3 - 13 mmol/L [facility] AST [Catalytic activity/Vol] 36 U/L High NINF - 34 U/L [facility] Bilirubin [Mass/Vol] 0.4 mg/dL NINF - 1.2 mg/dL [facility] Calcium [Mass/Vol] 7.8 mg/dL Low 8.8 - 10. 0 mg/dL [facility] Chloride [Moles/Vol] 100 mmol/L 98 - 10 7 mmol/L [facility] CO2 [Moles/Vol] 26 mmol/L 23 - 31 mmol/L [facility] Creatinine [Mass/Vol] 5.6 mg/dL High 0.57 - 1.11 mg/dL [facility] GFR/1.73 sq M.predicted (S/P/Bld) [Vol rate/Area] 7.5 mL/min Low - PINF [facility] Glucose [Mass/Vol] 77 mg/dL Low 82 - 115 mg/dL [facility] Interpretation and review of laboratory results Abnormal [facility] Potassium [Moles/Vol] 4.1 mmol/L 3.5 - 5.1 mmol/L [facility] Protein [Mass/Vol] 6.1 g/dL Low 6.4 - 8.3 g/dL [facility] Sodium [Moles/Vol] 137 mmol/L 136 - 145 mmol/L [facility] Urea nitrogen [Mass/Vol] 38 mg/dL High 9 - 23 mg/dL [facility] Consulton 12-12-[address] [facility] Laboratory - Chemistry and C hemistry - challengeon 12-12-2024 Glucose [Mass/Vol] 117 mg/dL High 70 - 100 mg/dL [facility] Glucose [Mass/Vol] 63 mg/dL Low 70 - 100 mg/dL [facility] Glucose [Mass/Vol] 72 mg/dL 70 - 100 mg/dL [facility] No Panel Informationon 12-12 Interpretation and review of laboratory results Abnormal [facility] Interpretation and review of laboratory results Abnormal [facility] Interpretation and review of laboratory results Normal [facility] Nursing Noteon 12-12-2024 Nursing Note [address] [facility] Nursing Note Patient's significan t other had to be stopped from pouring water into patient's mouth. He said that he knows she has to be thirsty. RN educated on why you cannot do this as it can cause aspiration. Normal [facility] Nursing Note Normal [facility] Nursing Note Normal [facility] Nursing Note Patient to xray Normal [facility] Progress Noteon 12-12-2024 Progress Note OCCUPATIONAL THERAPY [facility] Name/MRN: Apoorva Gonzalez ([id number]) Date: 12/12/2024 Attempt Note Attempted OT eval. Awaiting results of C-spine MRI. ~Jelly Victorino MS, OTR/L Normal [facility] Progress Note Normal [facility] Progress Note Normal [facility] Progress Note Normal [facility] Progress Note Normal [facility] Progress Note MRI attempted again; pt. Unable to tolerate exam. Pt. Very confused, hitting head on camera, swinging arms and groaning. Too dangerous to leave pt. Alone on scanner due to fear of personal injury to self. MRI aborted. Normal [facility] Progress Note Normal [facility] XR ABDOMEN 1 VIEWon 12-13-19 25 XR ABDOMEN [address] [facility] XR Abdomen Single viewon [facility] XR CHEST 1 VIEWon 12-12-2024 XR CHEST 1 VIEW Normal [facility] XR Chest Single viewon 12-12 [facility] 25-hydroxyvitamin D3 [Mass/V ol]on 12-11-2024 Interpretation and review of laboratory results Abnormal [facility] BLOOD GAS ARTERIALon 025 AMOUNT OF OXYGEN 21 Normal [facility] Comment on above: Performed By: #### L [id number] ####Conservation Coordinator: PHILLY FRANCO ([phone])[facility] ([facility])[address] [place] [address] Base excess Calc (Bld) [Moles/Vol] 3.6 mmol/L High -3.0-3.[address] [facility] Comment on above: Performed By: #### L [id number] ####Conservation Coordinator: PHILLY FRANCO ([phone])[facility] ([facility])[address] [place] [address] CO2 [Moles/Vol] 28.8 mmol/L High 23.0-27.0 [facility] Comment on above: Performed By: #### L [id number] ####Conservation Coordinator: PHILLY FRANCO ([phone])[facility] ([facility])[address] [place] [address] HCO3 (Bld) [Moles/Vol] 27.6 mmol/L High 21.0-25.0 [facility] Comment on above: Performed By: #### L [id number] ####Conservation Coordinator: PHILLY FRANCO ([phone])[facility] ([facility])[address] [place] [address] Hemoglobin (Bld) [Mass/Vol] 9.3 g/dL Normal Screen only [facility] Comment on above: Performed By: #### L [id number] ####Conservation Coordinator: PHILLY FRANCO ([phone])[facility])[address] [place] [address] OXYGEN SATURATION (%) IN ARTERIAL BLOOD 85.3 % Low 95.0-100.0 [facility] Comment on above: Performed By: #### L [id number] ####Conservation Coordinator: PHILLY FRANCO ([phone])[facility] ([facility])[address] [place] [address] PCO2 ARTERIAL 39.5 mm Hg Normal >35.0-<45.0 [facility] Comment on above: Performed By: #### L [id number] ####Conservation Coordinator: PHILLY FRANCO ([phone])[facility] ([facility])[address] [place] [address] PH ARTERIAL 7.462 High 7.350-7.450 [facility] Comment on above: Performed By: #### L [id number] ####Conservation Coordinator: PHILLY FRANCO ([phone])[facility] ([facility])[address] [place] [address] PO2 ARTERIAL 51.0 mm Hg Low 80.0-100.0 [facility] Comment on above: Performed By: #### L [id number] ####Conservation Coordinator: PHILLY FRANCO ([phone])[facility] ([facility])[address] [place] [address] SOURCE OF OXYGEN None (Room Air) Normal [facility] Comment on above: Performed By: #### L [id number] ####Conservation Coordinator: PHILLY FRANCO ([phone])[facility] ([facility])[address] [place] [address] CBC W Auto Differential pane l (Bld)Ordered By: Andre Ervin on 12-11-2024 Basophils (Bld) [#/Vol] 0.1 10*3/uL 0.0 - 0.2 10*3/uL [facility] Basophils/100 WBC (Bld) 1.1 % 0.0 - 2.0 % [facility] Eosinophils (Bld) [#/Vol] 0.4 10*3/uL 0.0 - 0.5 10*3/uL [facility] Eosinophils/100 WBC (Bld) 3.2 % 0.0 - 6.0 % [facility] Erythrocyte distribution width (RBC) [Ratio] 18.3 % High 11.5 - 15.0 % [facility] Hematocrit (Bld) [Volume fraction] 23.6 % Low 35.0 - 47.0 % [facility] [employer] Hemoglobin (Bld) [Mass/Vol] 7.7 g/dL Low 11.7 - 16.0 g/dL [facility] [employer] Immature granulocytes (Bld) [#/Vol] 0 10*3/uL NINF - 0.1 10*3/uL [facility] [employer] Immature granulocytes/100 WBC (Bld) 0.3 % 0.0 - 2.0 % [facility] [employer] Interpretation and review of laboratory results Abnormal [facility] IPF 2 [facility] [employer] Lymphocytes (Bld) [#/Vol] 1.3 10*3/uL 1.0 - 4.3 10*3/uL [facility] [employer] Lymphocytes/100 WBC (Bld) 10.5 % Low 15.0 - 45.0 % [facility] [employer] MCH (RBC) [Entitic mass] 30 pg 26.0 - 34.0 pg [facility] [employer] MCHC (RBC) [Mass/Vol] 32.6 % 30.5 - 36.0 % [facility] [employer] MCV (RBC) [Entitic vol] 91.8 fL 77.0 - 99.0 fL [facility] [employer] Monocytes (Bld) [#/Vol] 0.5 10*3/uL 0.0 - 0.9 10*3/uL [facility] [employer] Monocytes/100 WBC (Bld) 4.4 % Low 5.0 - 13.0 % [facility] [employer] Neutrophils (Bld) [#/Vol] 9.8 10*3/uL High 1.8 - 7.5 10*3/uL [facility] [employer] Neutrophils/100 WBC (Bld) 80.5 % 38.0 - 82.0 % [facility] [employer] Nucleated RBC/100 WBC (Bld) [Ratio] 0 % [facility] [employer] Platelet mean volume (Bld) [Entitic vol] 10.6 fL 9.0 - 12.7 fL [facility] [employer] Platelets (Bld) [#/Vol] 300 10*3/uL 140 - 440 10*3/uL [facility] [employer] RBC (Bld) [#/Vol] 2.57 10*6/uL Low 3.80 - 5.2 0 10*6/uL [facility] [employer] WBC (Bld) [#/Vol] 12.1 10*3/uL High 3.6 - 10.7 10*3/uL [facility] CBC WITH AUTO DIFFERENTIALon 12-11-2024 Basophils (Bld) [#/Vol] 0.1 10*3/uL Normal 0.0-0.2 [facility] Comment on above: Performed By: #### L [id number] ####Conservation Coordinator: PHILLY FRANCO ([phone])[facility] ([facility])[address] [place] [address] Basophils/100 WBC (Bld) 1.1 % Normal 0.0-2.0 [facility] Comment on above: Performed By: #### L [id number] ####Conservation Coordinator: PHILLY FRANCO ([phone])[facility] ([facility])[address] [place] [address] Eosinophils (Bld) [#/Vol] 0.4 10*3/uL Normal 0.0-0.5 [facility] Comment on above: Performed By: #### L [id number] ####Conservation Coordinator: PHILLY FRANCO ([phone])[facility] ([facility])[address] [place] [address] Eosinophils/100 WBC (Bld) 3.2 % Normal 0.0-6.0 [facility] Comment on above: Performed By: #### L [id number] ####Conservation Coordinator: PHILLY FRANCO ([phone])[facility])[address] [place] [address] Erythrocyte distribution width (RBC) [Ratio] 18.3 % High 11.5-15.0 [facility] Comment on above: Performed By: #### L [id number] ####Conservation Coordinator: PHILLY FRANCO ([phone])[facility] ([facility])[address] [place] [address] Hematocrit (Bld) [Volume fraction] 23.6 % Low 35.0-47.0 [facility] Comment on above: Performed By: #### L [id number] ####Conservation Coordinator: PHILLY FRANCO ([phone])[facility])[address] [place] [address] Hemoglobin (Bld) [Mass/Vol] 7.7 g/dL Low 11.7-16.0 [facility] Comment on above: Performed By: #### L [id number] ####Conservation Coordinator: PHILLY FRANCO ([phone])[facility])[address] [place] [address] IMMATURE GRANS % 0.3 % Normal 0.0-2.0 [facility] Comment on above: Performed By: #### L [id number] ####Conservation Coordinator: PHILLY FRANCO ([phone])[facility])[address] [place] [address] IMMATURE GRANS ABSOLUTE 0.0 10*3/uL Normal <0.1 [facility] Comment on above: Performed By: #### L [id number] ####Conservation Coordinator: PHILLY FRANCO ([phone])[address] IPF 2 Normal [facility] Comment on above: Performed By: #### L [id number] ####Conservation Coordinator: PHILLY FRANCO ([phone])[facility])[address] [place] [address] Lymphocytes (Bld) [#/Vol] 1.3 10*3/uL Normal 1.0-4.3 [facility] Comment on above: Performed By: #### L [id number] ####Conservation Coordinator: PHILLY FRANCO ([phone])[facility])[address] [place] [address] Lymphocytes/100 WBC (Bld) 10.5 % Low 15.0-45.0 [facility] Comment on above: Performed By: #### L [id number] ####Conservation Coordinator: PHILLY FRANCO ([phone])[address] MCH (RBC) [Entitic mass] 30.0 pg Normal 26.0-34.0 [facility] Comment on above: Performed By: #### L [id number] ####Conservation Coordinator: PHILLY FRANCO ([phone])[facility] ([facility])[address] [place] [address] MCHC 32.6 % Normal 30.5-36.[address] [facility] Comment on above: Performed By: #### L [id number] ####Conservation Coordinator: PHILLY FRANCO ([phone])[facility] ([facility])[address] [place] [address] MCV (RBC) [Entitic vol] 91.8 fL Normal 77.0-99.0 [facility] Comment on above: Performed By: #### L [id number] ####Conservation Coordinator: PHILLY FRANCO ([phone])[facility] ([facility])[address] [place] [address] Monocytes (Bld) [#/Vol] 0.5 10*3/uL Normal 0.0-0.[address] [facility] Comment on above: Performed By: #### L [id number] ####Conservation Coordinator: PHILLY FRANCO ([phone])[facility] ([facility])[address] [place] [address] [place] Monocytes/100 WBC (Bld) 4.4 % Low 5.0-13.0 [facility] Comment on above: Performed By: #### L [id number] ####Conservation Coordinator: PHILLY FRANCO ([phone])[facility] ([facility])[address] [place] [address] NEUTROPHILS ABSOLUTE 9.8 10*3/uL High 1.8-7.5 [facility] Comment on above: Performed By: #### L [id number] ####Conservation Coordinator: PHILLY FRANCO ([phone])[facility] ([facility])[address] [place] [address] Neutrophils/100 WBC (Bld) 80.5 % Normal 38.0-82.[address] [facility] Comment on above: Performed By: #### L [id number] ####Conservation Coordinator: PHILLY FRANCO ([phone])[facility] ([facility])[address] [place] [address] [place] NRBC 0.0 /100 WBCs Normal 0.0-2.0 [facility] Comment on above: Performed By: #### L [id number] ####Conservation Coordinator: PHILLY FRANCO ([phone])[facility])[address] [place] [address] Platelet mean volume (Bld) [Entitic vol] 10.6 fL Normal 9.0-12.7 [facility] Comment on above: Performed By: #### L [id number] ####Conservation Coordinator: PHILLY FRANCO ([phone])[facility] ([facility])[address] [place] [address] Platelets (Bld) [#/Vol] 300 10*3/uL Normal 140-[address] [facility] Comment on above: Performed By: #### L [id number] ####Conservation Coordinator: PHILLY FRANCO ([phone])[facility])[address] [place] [address] RBC (Bld) [#/Vol] 2.57 10*6/uL Low 3.80-5.20 [facility] Comment on above: Performed By: #### L [id number] ####Conservation Coordinator: PHILLY FRANCO ([phone])[facility])[address] [place] [address] WBC (Bld) [#/Vol] 12.1 10*3/uL High 3.6-10.7 [facility] Comment on above: Performed By: #### L [id number] ####Conservation Coordinator: PHILLY FRANCO ([phone])[facility])[address] [place] [address] COMPREHENSIVE METABOLIC PANE Fam 12-11-2024 Albumin [Mass/Vol] 1.5 g/dL Low 3.4-4.[address] [facility] Comment on above: Performed By: #### L [id number] ####Conservation Coordinator: PHILLY FRANCO ([phone])[facility])[address] [place] [address] ALP [Catalytic activity/Vol] 149 U/L Normal 40-150 [facility] Comment on above: Performed By: #### L [id number] ####Conservation Coordinator: PHILLY FRANCO ([phone])[facility] ([facility])[address] [place] [address] ALT [Catalytic activity/Vol] 13 U/L Normal <30 [facility] Comment on above: Performed By: #### L [id number] ####Conservation Coordinator: PHILLY FRANCO ([phone])[facility] ([facility])[address] [place] [address] Anion gap [Moles/Vol] 11 mmol/L Normal 3-13 [facility] Comment on above: Performed By: #### L [id number] ####Conservation Coordinator: PHILLY FRANCO ([phone])[facility])[address] [place] [address] AST [Catalytic activity/Vol] 41 U/L High <34 [facility] Comment on above: Performed By: #### L [id number] ####Conservation Coordinator: PHILLY FRANCO ([phone])[facility] ([facility])[address] [place] [address] Bilirubin [Mass/Vol] 0.4 mg/dL Normal <1.2 [facility] Comment on above: Performed By: #### L [id number] ####Conservation Coordinator: PHILLY FRANCO ([phone])[facility] ([facility])[address] [place] [address] Calcium [Mass/Vol] 8.0 mg/dL Low 8.8-10.0 [facility] Comment on above: Performed By: #### L [id number] ####Conservation Coordinator: PHILLY FRANCO ([phone])[facility] ([facility])[address] [place] [address] [place] Chloride [Moles/Vol] 100 mmol/L Normal 98-107 [facility] Comment on above: Performed By: #### L [id number] ####Conservation Coordinator: PHILLY FARNCO ([phone])[facility] ([facility])[address] [place] [address] [place] CO2 [Moles/Vol] 27 mmol/L Normal 23-[address] [facility] Comment on above: Performed By: #### L [id number] ####Conservation Coordinator: PHILLY FRANCO ([phone])[facility])[address] [place] [address] Creatinine [Mass/Vol] 4.96 mg/dL High 0.57-1.11 [facility] Comment on above: Performed By: #### L [id number] ####Conservation Coordinator: PHILLY FRANCO ([phone])[facility])[address] [place] [address] GLOMERULAR FILTRATION RATE ML/MIN/1.73 SQ M.PREDICTED 8.7 mL/min/1.73m*2 Low >60.[address] [facility] Comment on above: Result Comment: Calc ulation based on the Chronic Kidney Disease Epidemiology Collaboration (CKD-EPI) equation refit without adjustment for race Performed By: #### L [id number] ####Conservation Coordinator: PHILLY FRANCO ([phone])[facility])[address] [place] [address] Glucose [Mass/Vol] 74 mg/dL Low 82-[address] [facility] Comment on above: Performed By: #### L [id number] ####Conservation Coordinator: PHILLY FRANCO ([phone])[address] Potassium [Moles/Vol] 3.7 mmol/L Normal 3.5-5.1 [facility] Comment on above: Result Comment: [facility] potassium values may be up to 0.5 mmol/L lower than serum values. Performed By: #### L [id number] ####Conservation Coordinator: PHILLY FRANCO ([phone])[facility])[address] [place] [address] Protein [Mass/Vol] 6.5 g/dL Normal 6.4-8.[address] [facility] Comment on above: Performed By: #### L [id number] ####Conservation Coordinator: PHILLY FRANCO ([phone])[facility])[address] Sodium [Moles/Vol] 138 mmol/L Normal 136-[address] [facility] Comment on above: Performed By: #### L [id number] ####Conservation Coordinator: PHILLY FRANCO ([phone])[facility] ([facility])[address] [place] [address] Urea nitrogen [Mass/Vol] 32 mg/dL High 9-[address] [facility] Comment on above: Performed By: #### L [id number] ####Conservation Coordinator: PHILLY FRANCO ([phone])[facility] ([facility])[address] [place] [address] CT HEAD WO IV CONTRASTon CT HEAD WO IV CONTRAST Normal [facility] CT Head WO contraston 2024 [facility] Comprehensive metabolic 1998 panelon 12-11-2024 Albumin [Mass/Vol] 1.5 g/dL Low 3.4 - 4.8 g/dL [facility] ALP [Catalytic activity/Vol] 149 U/L 40 - 150 U/L [facility] ALT [Catalytic activity/Vol] 13 U/L NINF - 30 U/L [facility] Anion gap [Moles/Vol] 11 mmol/L 3 - 13 mmol/L [facility] AST [Catalytic activity/Vol] 41 U/L High NINF - 34 U/L [facility] Bilirubin [Mass/Vol] 0.4 mg[facility]/dL [facility] Calcium [Mass/Vol] 8 mg/dL Low 8.8 - 10. 0 mg/dL [facility] Chloride [Moles/Vol] 100 mmol/L 98 - 10 7 mmol/L [facility] CO2 [Moles/Vol] 27 mmol/L 23 - 31 mmol/L [facility] Creatinine [Mass/Vol] 4.96 mg/dL High 0.57 - 1.11 mg/dL [facility] GFR/1.73 sq M.predicted (S/P/Bld) [Vol rate/Area] 8.7 mL/min Low - PINF [facility] Glucose [Mass/Vol] 74 mg/dL Low 82 - 115 mg/dL [facility] Interpretation and review of laboratory results Abnormal [facility] Potassium [Moles/Vol] 3.7 mmol/L 3.5 - 5.1 mmol/L [facility] Protein [Mass/Vol] 6.5 g/dL 6.4 - 8.3 g/dL [facility] Sodium [Moles/Vol] 138 mmol/L 136 - 145 mmol/L [facility] Urea nitrogen [Mass/Vol] 32 mg/dL High 9 - 23 mg/dL [facility] Consulton 12-11-[address] [facility] LACTIC ACID WITH REFLEXon Lactate [Moles/Vol] 0.6 mmol/L Normal 0.5-2.[address] [facility] Comment on above: Performed By: #### L [id number] ####Conservation Coordinator: PHILLY FRANCO ([phone])[facility] ([address] Laboratory - Chemistry and C hemistry - challengeon 12-11-2024 Lactate [Moles/Vol] 0.6 mmol/L 0.5 - 2. 2 mmol/L [facility] Base excess Calc (Bld) [Moles/Vol] 3.6 mmol/L High -3.0 - 3.0 mmol/L [facility] CO2 (Bld) [Partial pressure] 39.5 mm[Hg] - PINF [facility] CO2 [Moles/Vol] 28.8 mmol/L High 23.0 - 27.0 mmol/L [facility] HCO3 (Bld) [Moles/Vol] 27.6 mmol/L High 21.0 - 25.0 mmol/L [facility] Oxygen (Bld) [Partial pressure] 51 mm[Hg] Low [facility] pH (Bld) 7.462 [pH] High 7.350 - 7.450 [facility] Glucose [Mass/Vol] 95 mg/dL 70 - 100 mg/dL [facility] 25-hydroxyvitamin D3 [Mass/Vol] 60 ng/mL High 20 - 50 ng/mL [facility] Laboratory - Hematology and Cell countson 12-11-2024 Hemoglobin (Bld) [Mass/Vol] 9.3 g/dL 7.0 g/dl [facility] No Panel Informationon 12-11 Radiology Study observation (narrative) [facility] Interpretation and review of laboratory results Normal [facility] Amount Of Oxygen 21 [facility] Interpretation and review of laboratory results Abnormal [facility] Source Of Oxygen None (Room Air) [facility] Interpretation and review of laboratory results Normal [facility] Nursing Noteon 12-11-2024 Nursing Note Spoke with MRI regarding pt being unable to answer MRI questions. Messaged dictaphone typist for order for chest xray and KUB. Normal [facility] Nursing Note Normal [facility] Progress Noteon 12-11-2024 Progress Note OCCUPATIONAL THERAPY [facility] Name/MRN: Apoorva Gonzalez ([id number]) Date: 12/11/2024 OT eval on hold pending MRI c-spine imaging. Will evaluate as appropriate. Leonila Rios, OT Normal [facility] Progress Note Normal [facility] Progress Note Normal [facility] Progress Note PHYSICAL THERAPY [facility] Name/MRN: Apoorva Gonzalez ([id number]) Date: 12/11/2024 PT held pending MRI c-spine imaging. Anitha Luna, PT Normal [facility] Progress Note Normal [facility] Progress Note Normal [facility] VITAMIN D DEFICIENCY SCREENI NG (VIT D 25)on 12-11-2024 VIT D 25-OH, TOTAL 60 ng/mL High See comment [facility] Comment on above: Result Comment: GUERO Amanda COMMENTS:Target concentration: 30 - 40 ng/mL; toxicity seen at concentrations >100 ng/mLLess than 20 ng/mL: Indicative of Vit D deficiencyTest performed by [employer], measuring Total Vitamin D, not individual fractions. Performed By: #### L [id number] ####Conservation Coordinator: PHILLY FRANCO ([phone])[facility] ([facility])[address] [place] [address] CBC W Auto Differential pane l (Bld)on 12-10-2024 Basophils (Bld) [#/Vol] 0.1 10*3/uL 0.0 - 0.2 10*3/uL [facility] Basophils/100 WBC (Bld) 1.3 % 0.0 - 2.0 % [facility] Eosinophils (Bld) [#/Vol] 0.3 10*3/uL 0.0 - 0.5 10*3/uL [facility] Eosinophils/100 WBC (Bld) 2.6 % 0.0 - 6.0 % [facility] [employer] Erythrocyte distribution width (RBC) [Ratio] 18.6 % High 11.5 - 15.0 % [facility] Hematocrit (Bld) [Volume fraction] 23.2 % Low 35.0 - 47.0 % [facility] Hemoglobin (Bld) [Mass/Vol] 7.3 g/dL Low 11.7 - 16.0 g/dL [facility] Immature granulocytes (Bld) [#/Vol] 0 10*3/uL NINF - 0.1 10*3/uL [facility] [employer] Immature granulocytes/100 WBC (Bld) 0.4 % 0.0 - 2.0 % [facility] Interpretation and review of laboratory results Abnormal [facility] Lymphocytes (Bld) [#/Vol] 1.4 10*3/uL 1.0 - 4.3 10*3/uL [facility] Lymphocytes/100 WBC (Bld) 14.1 % Low 15.0 - 45.0 % [facility] MCH (RBC) [Entitic mass] 29.1 pg 26.0 - 34.0 pg [facility] MCHC (RBC) [Mass/Vol] 31.5 % 30.5 - 36.0 % [facility] MCV (RBC) [Entitic vol] 92.4 fL 77.0 - 99.0 fL [facility] Monocytes (Bld) [#/Vol] 0.7 10*3/uL 0.0 - 0.9 10*3/uL [facility] Monocytes/100 WBC (Bld) 7 % 5.0 - 13.0 % [facility] Neutrophils (Bld) [#/Vol] 7.6 10*3/uL High 1.8 - 7.5 10*3/uL [facility] Neutrophils/100 WBC (Bld) 74.6 % 38.0 - 82.0 % [facility] Nucleated RBC/100 WBC (Bld) [Ratio] 0 % [facility] Platelet mean volume (Bld) [Entitic vol] 10.3 fL 9.0 - 12.7 fL [facility] [employer] Platelets (Bld) [#/Vol] 293 10*3/uL 140 - 440 10*3/uL [facility] RBC (Bld) [#/Vol] 2.51 10*6/uL Low 3.80 - 5.2 0 10*6/uL [facility] WBC (Bld) [#/Vol] 10.2 10*3/uL 3.6 - 10.7 10*3/uL [facility] CBC WITH AUTO DIFFERENTIALon 12-10-2024 Basophils (Bld) [#/Vol] 0.1 10*3/uL Normal 0.0-0.2 [facility] Comment on above: Performed By: #### L [id number] ####Conservation Coordinator: PHILLY FRANCO ([phone])[facility])[address] [place] [address] Basophils/100 WBC (Bld) 1.3 % Normal 0.0-2.0 [facility] Comment on above: Performed By: #### L [id number] ####Conservation Coordinator: PHILLY FRANCO ([phone])[facility] ([facility])[address] [place] [address] Eosinophils (Bld) [#/Vol] 0.3 10*3/uL Normal 0.0-0.5 [facility] Comment on above: Performed By: #### L [id number] ####Conservation Coordinator: PHILLY FRANCO ([phone])[facility])[address] [place] [address] Eosinophils/100 WBC (Bld) 2.6 % Normal 0.0-6.0 [facility] Comment on above: Performed By: #### L [id number] ####Conservation Coordinator: PHILLY FRANCO ([phone])[facility] ([facility])[address] [place] [address] Erythrocyte distribution width (RBC) [Ratio] 18.6 % High 11.5-15.0 [facility] Comment on above: Performed By: #### L [id number] ####Conservation Coordinator: PHILLY FRANCO ([phone])[facility])[address] [place] [address] Hematocrit (Bld) [Volume fraction] 23.2 % Low 35.0-47.0 [facility] Comment on above: Performed By: #### L [id number] ####Conservation Coordinator: PHILLY FRANCO ([phone])[facility])[address] [place] [address] Hemoglobin (Bld) [Mass/Vol] 7.3 g/dL Low 11.7-16.0 [facility] Comment on above: Performed By: #### L [id number] ####Conservation Coordinator: PHILLY FRANCO ([phone])[facility])[address] [place] [address] IMMATURE GRANS % 0.4 % Normal 0.0-2.0 [facility] Comment on above: Performed By: #### L [id number] ####Conservation Coordinator: PHILLY FRANCO ([phone])[address] IMMATURE GRANS ABSOLUTE 0.0 10*3/uL Normal <0.1 [facility] Comment on above: Performed By: #### L [id number] ####Conservation Coordinator: PHILLY FRANCO ([phone])[facility])[address] [place] [address] Lymphocytes (Bld) [#/Vol] 1.4 10*3/uL Normal 1.0-4.3 [facility] Comment on above: Performed By: #### L [id number] ####Conservation Coordinator: PHILLY FRANCO ([phone])[facility])[address] [place] [address] Lymphocytes/100 WBC (Bld) 14.1 % Low 15.0-45.0 [facility] Comment on above: Performed By: #### L [id number] ####Conservation Coordinator: PHILLY FRANCO ([phone])[facility])[address] [place] [address] MCH (RBC) [Entitic mass] 29.1 pg Normal 26.0-34.0 [facility] Comment on above: Performed By: #### L [id number] ####Conservation Coordinator: PHILLY FRANCO ([phone])[facility] ([facility])[address] [place] [address] MCHC 31.5 % Normal 30.5-36.0 [facility] Comment on above: Performed By: #### L [id number] ####Conservation Coordinator: PHILLY FRANCO ([phone])[facility] ([facility])[address] [place] [address] MCV (RBC) [Entitic vol] 92.4 fL Normal 77.0-99.0 [facility] Comment on above: Performed By: #### L [id number] ####Conservation Coordinator: PHILLY FRANCO ([phone])[facility] ([facility])[address] [place] [address] Monocytes (Bld) [#/Vol] 0.7 10*3/uL Normal 0.0-0.9 [facility] Comment on above: Performed By: #### L [id number] ####Conservation Coordinator: PHILLY FRANCO ([phone])[facility] ([facility])[address] [place] [address] Monocytes/100 WBC (Bld) 7.0 % Normal 5.0-13.0 [facility] Comment on above: Performed By: #### L [id number] ####Conservation Coordinator: PHILLY FRANCO ([phone])[facility] ([facility])[address] [place] [address] NEUTROPHILS ABSOLUTE 7.6 10*3/uL High 1.8-7.5 [facility] Comment on above: Performed By: #### L [id number] ####Conservation Coordinator: PHILLY FRANCO ([phone])[facility] ([facility])[address] [place] [address] Neutrophils/100 WBC (Bld) 74.6 % Normal 38.0-82.0 [facility] Comment on above: Performed By: #### L [id number] ####Conservation Coordinator: PHILLY FRANCO ([phone])[facility] ([facility])[address] [place] [address] NRBC 0.0 /100 WBCs Normal 0.0-2.0 [facility] Comment on above: Performed By: #### L [id number] ####Conservation Coordinator: PHILLY FRANCO ([phone])[facility])[address] [place] [address] Platelet mean volume (Bld) [Entitic vol] 10.3 fL Normal 9.0-12.[address] [facility] Comment on above: Performed By: #### L [id number] ####Conservation Coordinator: PHILLY FRANCO ([phone])[facility])[address] [place] [address] Platelets (Bld) [#/Vol] 293 10*3/uL Normal 140-440 [facility] Comment on above: Performed By: #### L [id number] ####Conservation Coordinator: PHILLY FRANCO ([phone])[facility])[address] [place] [address] RBC (Bld) [#/Vol] 2.51 10*6/uL Low 3.80-5.20 [facility] Comment on above: Performed By: #### L [id number] ####Conservation Coordinator: PHILLY FRANCO ([phone])[facility])[address] [place] [address] WBC (Bld) [#/Vol] 10.2 10*3/uL Normal 3.6-10.7 [facility] Comment on above: Performed By: #### L [id number] ####Conservation Coordinator: PHILLY FRANCO ([phone])[facility])[address] [place] [address] COMPREHENSIVE METABOLIC PANE Fam 12-10-2024 Albumin [Mass/Vol] 1.4 g/dL Low 3.4-4.8 [facility] Comment on above: Performed By: #### L [id number], LAB17 ####Conservation Coordinator: PHILLY FRANCO ([phone])[facility])[address] [place] [address] ALP [Catalytic activity/Vol] 125 U/L Normal 40-150 [facility] Comment on above: Performed By: #### L [id number], LAB17 ####Conservation Coordinator: PHILLY FRANCO ([phone])[facility] ([facility])[address] [place] [address] ALT [Catalytic activity/Vol] 11 U/L Normal <30 [facility] Comment on above: Performed By: #### L [id number], LAB17 ####Conservation Coordinator: PHILLY FRANCO ([phone])[facility] ([facility])[address] [place] [address] Anion gap [Moles/Vol] 10 mmol/L Normal 3-13 [facility] Comment on above: Performed By: #### L [id number], LAB17 ####Conservation Coordinator: PHILLY FRANCO ([phone])[facility] ([facility])[address] [place] [address] AST [Catalytic activity/Vol] 36 U/L High <34 [facility] Comment on above: Performed By: #### L [id number], LAB17 ####Conservation Coordinator: PHILLY FRANCO ([phone])[facility] ([facility])[address] [place] [address] Bilirubin [Mass/Vol] 0.4 mg/dL Normal <1.2 [facility] Comment on above: Performed By: #### L ENOCH, LAB17 ####Conservation Coordinator: PHILLY FRANCO ([phone])[facility] ([facility])[address] [place] [address] Calcium [Mass/Vol] 7.5 mg/dL Low 8.8-10.0 [facility] Comment on above: Performed By: #### L AB103, LAB17 ####Conservation Coordinator: PHILLY FRANCO ([phone])[facility])[address] [place] [address] Chloride [Moles/Vol] 99 mmol/L Normal 98-107 [facility] Comment on above: Performed By: #### L AB103, LAB17 ####Conservation Coordinator: PHILLY FRANCO ([phone])[facility])[address] [place] [address] CO2 [Moles/Vol] 26 mmol/L Normal 23-[address] [facility] Comment on above: Performed By: #### L AB103, LAB17 ####Conservation Coordinator: PHILLY FRANCO ([phone])[facility])[address] [place] [address] Creatinine [Mass/Vol] 4.24 mg/dL High 0.57-1.11 [facility] Comment on above: Performed By: #### L AB103, LAB17 ####Conservation Coordinator: PHILLY FRANCO ([phone])[facility])[address] [place] [address] GLOMERULAR FILTRATION RATE ML/MIN/1.73 SQ M.PREDICTED 10.5 mL/min/1.73m*2 Low >60.[address] [facility] Comment on above: Result Comment: Calc ulation based on the Chronic Kidney Disease Epidemiology Collaboration (CKD-EPI) equation refit without adjustment for race Performed By: #### L AB103, LAB17 ####Conservation Coordinator: PHILLY FRANCO ([phone])[facility])[address] [place] [address] Glucose [Mass/Vol] 74 mg/dL Low 82-[address] [facility] Comment on above: Performed By: #### L AB103, LAB17 ####Conservation Coordinator: PHILLY FRANCO ([phone])[facility])[address] [place] [address] Potassium [Moles/Vol] 3.4 mmol/L Low 3.5-5.1 [facility] Comment on above: Result Comment: [facility] potassium values may be up to 0.5 mmol/L lower than serum values. Performed By: #### L AB103, LAB17 ####Conservation Coordinator: PHILLY FRANCO ([phone])[facility])[address] [place] [address] Protein [Mass/Vol] 5.7 g/dL Low 6.4-8.[address] [facility] Comment on above: Performed By: #### L AB103, LAB17 ####Conservation Coordinator: PHILLY FRANCO ([phone])[facility])[address] [place] [address] Sodium [Moles/Vol] 135 mmol/L Low 136-[address] [facility] Comment on above: Performed By: #### L AB103, LAB17 ####Conservation Coordinator: PHILLY FRANCO ([phone])[facility] ([facility])[address] [place] [address] Urea nitrogen [Mass/Vol] 25 mg/dL High 9-[address] [facility] Comment on above: Performed By: #### Jose [id number], LAB17 ####Conservation Coordinator: PHILLY FRANCO ([phone])[facility] ([facility])[address] [place] [address] Comprehensive metabolic 1998 panelon 12-10-2024 Albumin [Mass/Vol] 1.4 g/dL Low 3.4 - 4.8 g/dL [facility] ALP [Catalytic activity/Vol] 125 U/L 40 - 150 U/L [facility] ALT [Catalytic activity/Vol] 11 [facility] Anion gap [Moles/Vol] 10 mmol/L 3 - 13 mmol/L [facility] AST [Catalytic activity/Vol] 36 U/L High NINF - 34 U/L [facility] Bilirubin [Mass/Vol] 0.4 mg/dL NINF - 1.2 mg/dL [facility] Calcium [Mass/Vol] 7.5 mg/dL Low 8.8 - 10. 0 mg/dL [facility] Chloride [Moles/Vol] 99 mmol/L 98 - 10 7 mmol/L [facility] CO2 [Moles/Vol] 26 mmol/L 23 - 31 mmol/L [facility] Creatinine [Mass/Vol] 4.24 mg/dL High 0.57 - 1.11 mg/dL [facility] GFR/1.73 sq M.predicted (S/P/Bld) [Vol rate/Area] 10.5 mL/min Low - PINF [facility] Glucose [Mass/Vol] 74 mg/dL Low 82 - 115 mg/dL [facility] Interpretation and review of laboratory results Abnormal [facility] Potassium [Moles/Vol] 3.4 mmol/L Low 3.5 - 5.1 mmol/L [facility] Protein [Mass/Vol] 5.7 g/dL Low 6.4 - 8.3 g/dL [facility] Sodium [Moles/Vol] 135 mmol/L Low 136 - 145 mmol/L [facility] Urea nitrogen [Mass/Vol] 25 mg/dL High 9 - 23 mg/dL [facility] Consulton 12-10-[address] [facility] Laboratory - Chemistry and C hemistry - challengeon 12-10-2024 Magnesium [Mass/Vol] 1.8 mg/dL 1.6 - 2 .6 mg/dL [facility] MAGNESIUMon 12-10-2024 Magnesium [Mass/Vol] 1.8 mg/dL Normal 1.6-2.6 [facility] Comment on above: Result Comment: GUERO Amanda COMMENTS:Higher values can be expected in females during menses. Performed By: #### L AB103, LAB17 ####Conservation Coordinator: HPILLY FRANCO ([phone])[facility] ([address] Magnesium [Mass/Vol]on 12-10 Interpretation and review of laboratory results Normal [facility] Nursing Noteon 12-10-2024 Nursing Note Unable to give IV antibiotic at this time due to occluded IV site. Was unsuccessful to place new IV so I called RR team to come place one. 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 Normal [facility] Progress Noteon 12-10-2024 Progress Note Normal [facility] Progress Note Normal [facility] CBC W Auto Differential pane l (Bld)on 12-09-2024 Basophils (Bld) [#/Vol] 0.1 10*3/uL 0.0 - 0.2 10*3/uL [facility] Basophils/100 WBC (Bld) 1.1 % 0.0 - 2.0 % [facility] Eosinophils (Bld) [#/Vol] 0.2 10*3/uL 0.0 - 0.5 10*3/uL [facility] Eosinophils/100 WBC (Bld) 2.3 % 0.0 - 6.0 % [facility] Erythrocyte distribution width (RBC) [Ratio] 18.7 % High 11.5 - 15.0 % [facility] Hematocrit (Bld) [Volume fraction] 23.5 % Low 35.0 - 47.0 % [facility] Hemoglobin (Bld) [Mass/Vol] 7.6 g/dL Low 11.7 - 16.0 g/dL [facility] Immature granulocytes (Bld) [#/Vol] 0 10*3/uL NINF - 0.1 10*3/uL [facility] Immature granulocytes/100 WBC (Bld) 0.2 % 0.0 - 2.0 % [facility] Interpretation and review of laboratory results Abnormal [facility] Lymphocytes (Bld) [#/Vol] 1.2 10*3/uL 1.0 - 4.3 10*3/uL [facility] Lymphocytes/100 WBC (Bld) 12.8 % Low 15.0 - 45.0 % [facility] MCH (RBC) [Entitic mass] 29.7 pg 26.0 - 34.0 pg [facility] MCHC (RBC) [Mass/Vol] 32.3 % 30.5 - 36.0 % [facility] MCV (RBC) [Entitic vol] 91.8 fL 77.0 - 99.0 fL [facility] Monocytes (Bld) [#/Vol] 0.8 10*3/uL 0.0 - 0.9 10*3/uL [facility] Monocytes/100 WBC (Bld) 7.8 % 5.0 - 13.0 % [facility] Neutrophils (Bld) [#/Vol] 7.4 10*3/uL 1.8 - 7.5 10*3/uL [facility] Neutrophils/100 WBC (Bld) 75.8 % 38.0 - 82.0 % [facility] Nucleated RBC/100 WBC (Bld) [Ratio] 0 % [facility] Platelet mean volume (Bld) [Entitic vol] 10.3 fL 9.0 - 12.7 fL [facility] Platelets (Bld) [#/Vol] 311 10*3/uL 140 - 440 10*3/uL [facility] RBC (Bld) [#/Vol] 2.56 10*6/uL Low 3.80 - 5.2 0 10*6/uL [facility] WBC (Bld) [#/Vol] 9.7 10*3/uL 3.6 - 10.7 10*3/uL [facility] CBC WITH AUTO DIFFERENTIALon 12-09-2024 Basophils (Bld) [#/Vol] 0.1 10*3/uL Normal 0.0-0.2 [facility] Comment on above: Performed By: #### L [id number] ####Conservation Coordinator: PHILLY FRANCO ([phone])[facility])[address] [place] [address] Basophils/100 WBC (Bld) 1.1 % Normal 0.0-2.0 [facility] Comment on above: Performed By: #### L [id number] ####Conservation Coordinator: PHILLY FRANCO ([phone])[facility])[address] [place] [address] Eosinophils (Bld) [#/Vol] 0.2 10*3/uL Normal 0.0-0.5 [facility] Comment on above: Performed By: #### L [id number] ####Conservation Coordinator: PHILLY FRANCO ([phone])[facility])[address] [place] [address] Eosinophils/100 WBC (Bld) 2.3 % Normal 0.0-6.0 [facility] Comment on above: Performed By: #### L [id number] ####Conservation Coordinator: PHILLY FRANCO ([phone])[facility])[address] [place] [address] Erythrocyte distribution width (RBC) [Ratio] 18.7 % High 11.5-15.0 [facility] Comment on above: Performed By: #### L [id number] ####Conservation Coordinator: PHILLY FRANCO ([phone])[facility])[address] [place] [address] Hematocrit (Bld) [Volume fraction] 23.5 % Low 35.0-47.0 [facility] Comment on above: Performed By: #### L [id number] ####Conservation Coordinator: PHILLY FRANCO ([phone])[facility])[address] [place] [address] Hemoglobin (Bld) [Mass/Vol] 7.6 g/dL Low 11.7-16.0 [facility] Comment on above: Performed By: #### L [id number] ####Conservation Coordinator: PHILLY FRANCO ([phone])[facility])[address] [place] [address] IMMATURE GRANS % 0.2 % Normal 0.0-2.0 [facility] Comment on above: Performed By: #### L [id number] ####Conservation Coordinator: PHILLY FRANCO ([phone])[address] IMMATURE GRANS ABSOLUTE 0.0 10*3/uL Normal <0.1 [facility] Comment on above: Performed By: #### L [id number] ####Conservation Coordinator: PHILLY FRANCO ([phone])[facility])[address] [place] [address] Lymphocytes (Bld) [#/Vol] 1.2 10*3/uL Normal 1.0-4.3 [facility] Comment on above: Performed By: #### L [id number] ####Conservation Coordinator: PHILLY FRACNO ([phone])[facility])[address] [place] [address] Lymphocytes/100 WBC (Bld) 12.8 % Low 15.0-45.0 [facility] Comment on above: Performed By: #### L [id number] ####Conservation Coordinator: PHILLY FRANCO ([phone])[facility])[address] [place] [address] MCH (RBC) [Entitic mass] 29.7 pg Normal 26.0-34.0 [facility] Comment on above: Performed By: #### L [id number] ####Conservation Coordinator: PHILLY FRANCO ([phone])[facility] ([facility])[address] [place] [address] MCHC 32.3 % Normal 30.5-36.0 [facility] Comment on above: Performed By: #### L [id number] ####Conservation Coordinator: PHILLY FRANCO ([phone])[facility] ([facility])[address] [place] [address] MCV (RBC) [Entitic vol] 91.8 fL Normal 77.0-99.0 [facility] Comment on above: Performed By: #### L [id number] ####Conservation Coordinator: PHILLY FRANCO ([phone])[facility])[address] [place] [address] Monocytes (Bld) [#/Vol] 0.8 10*3/uL Normal 0.0-0.9 [facility] Comment on above: Performed By: #### L [id number] ####Conservation Coordinator: PHILLY FRANCO ([phone])[facility] ([facility])[address] [place] [address] Monocytes/100 WBC (Bld) 7.8 % Normal 5.0-13.0 [facility] Comment on above: Performed By: #### L [id number] ####Conservation Coordinator: PHILLY FRANCO ([phone])[facility] ([facility])[address] [place] [address] NEUTROPHILS ABSOLUTE 7.4 10*3/uL Normal 1.8-7.5 [facility] Comment on above: Performed By: #### L [id number] ####Conservation Coordinator: PHILLY FRANCO ([phone])[facility])[address] [place] [address] Neutrophils/100 WBC (Bld) 75.8 % Normal 38.0-82.0 [facility] Comment on above: Performed By: #### L [id number] ####Conservation Coordinator: PHILLY FRANCO ([phone])[facility])[address] [place] [address] NRBC 0.0 /100 WBCs Normal 0.0-2.[address] [facility] Comment on above: Performed By: #### L [id number] ####Conservation Coordinator: PHILLY FRANCO ([phone])[facility])[address] [place] [address] Platelet mean volume (Bld) [Entitic vol] 10.3 fL Normal 9.0-12.[address] [facility] Comment on above: Performed By: #### L [id number] ####Conservation Coordinator: PHILLY FRANCO ([phone])[facility] ([facility])[address] [place] [address] Platelets (Bld) [#/Vol] 311 10*3/uL Normal 140-[address] [facility] Comment on above: Performed By: #### L [id number] ####Conservation Coordinator: PHILLY FRANCO ([phone])[facility])[address] [place] [address] RBC (Bld) [#/Vol] 2.56 10*6/uL Low 3.80-5.[address] [facility] Comment on above: Performed By: #### L [id number] ####Conservation Coordinator: PHILLY FRANCO ([phone])[facility])[address] [place] [address] WBC (Bld) [#/Vol] 9.7 10*3/uL Normal 3.6-10.[address] [facility] Comment on above: Performed By: #### L [id number] ####Conservation Coordinator: PHILLY FRANCO ([phone])[facility])[address] [place] [address] Consulton 12-09-[address] [facility] ED Nursing Noteon 12-09-2024 ED Nursing Note IV re established an d blood reconnected to complete infusion Normal [facility] ED Nursing Note US IV nurse called away to trauma. Will re attempt when able Normal [facility] ED Nursing Note Patient placed in hospital bed for comfort while awaiting inpatient room assignment. While removing old bed from room patient IV tubing got caught and IV was displaced. Blood product placed on hold at this time until new US IV can be established. Normal [facility] Laboratory - Chemistry and C hemistry - challengeon 12-09-2024 Albumin [Mass/Vol] 1.5 g/dL Low 3.4 - 4.8 g/dL [facility] Anion gap [Moles/Vol] 8 mmol/L 3 - 13 mmol/L [facility] Calcium [Mass/Vol] 7.6 mg/dL Low 8.8 - 10. 0 mg/dL [facility] Chloride [Moles/Vol] 96 mmol/L Low 98 - 10 7 mmol/L [facility] CO2 [Moles/Vol] 32 mmol/L High 23 - 31 mmol/L [facility] Creatinine [Mass/Vol] 3.73 mg/dL High 0.57 - 1.11 mg/dL [facility] GFR/1.73 sq M.predicted (S/P/Bld) [Vol rate/Area] 12.2 mL/min Low - PINF [facility] Glucose [Mass/Vol] 79 mg/dL Low 82 - 115 mg/dL [facility] Phosphate [Mass/Vol] 1.7 mg/dL Low 2.3 - 4 .7 mg/dL [facility] Potassium [Moles/Vol] 3.1 mmol/L Low 3.5 - 5.1 mmol/L [facility] Sodium [Moles/Vol] 136 mmol/L 136 - 145 mmol/L [facility] Urea nitrogen [Mass/Vol] 19 mg/dL 9 - 23 mg/dL [facility] No Panel Informationon 12-09 Interpretation and review of laboratory results Abnormal [facility] Blood Expiration Date S [facility] Crossmatch interpretation COMP [facility] Dispense Status Transfused [facility] [employer] Product Blood Type 5100 [facility] PRODUCT CODE [id number] [facility] Unit ABO O [facility] Unit Number [id number] [facility] RH Positive [facility] Volume 300 mL [facility] Nursing Noteon 12-09-2024 Nursing Note Pt [facility] Normal [facility] Progress Noteon 12-09-2024 Progress Note 2nd attempt for MRI with meds patient still refusing exam Normal [facility] Progress Note Normal [facility] Progress Note Pt attempted MRI but could not complete the exam. Patient refusing to continue exam. Normal [facility] Progress Note OCCUPATIONAL THERAPY [facility] Name/MRN: Apoorva Gonzalez ([id number]) Date: 12/09/2024 OT orders received and chart reviewed. MRI pending c-spine for r/o discitis, will await results prior to initiating OT eval. Jelly Fischer, OT Normal [facility] Progress Note Normal [facility] Progress Note Normal [facility] RENAL FUNCTION PANELon 12-09 Albumin [Mass/Vol] 1.5 g/dL Low 3.4-4.[address] [facility] Comment on above: Performed By: #### L [id number] ####Conservation Coordinator: PHILLY FRANCO ([phone])[facility])[address] [place] [address] Anion gap [Moles/Vol] 8 mmol/L Normal 3-13 [facility] Comment on above: Performed By: #### L [id number] ####Conservation Coordinator: PHILLY FRANCO ([phone])[facility])[address] [place] [address] Calcium [Mass/Vol] 7.6 mg/dL Low 8.8-10.[address] [facility] Comment on above: Performed By: #### L [id number] ####Conservation Coordinator: PHILLY FRANCO ([phone])[facility])[address] [place] [address] [place] Chloride [Moles/Vol] 96 mmol/L Low 98-107 [facility] Comment on above: Performed By: #### L [id number] ####Conservation Coordinator: PHILLY FRANCO ([phone])[facility])[address] [place] [address] [place] CO2 [Moles/Vol] 32 mmol/L High 23-[address] [facility] Comment on above: Performed By: #### L [id number] ####Conservation Coordinator: PHILLY FRANCO ([phone])[facility])[address] [place] [address] Creatinine [Mass/Vol] 3.73 mg/dL High 0.57-1.11 [facility] Comment on above: Performed By: #### L [id number] ####Conservation Coordinator: PHILLY FRANCO ([phone])[facility])[address] [place] [address] GLOMERULAR FILTRATION RATE ML/MIN/1.73 SQ M.PREDICTED 12.2 mL/min/1.73m*2 Low >60.[address] [facility] Comment on above: Result Comment: Calc ulation based on the Chronic Kidney Disease Epidemiology Collaboration (CKD-EPI) equation refit without adjustment for race Performed By: #### L [id number] ####Conservation Coordinator: PHILLY FRANCO ([phone])[facility])[address] [place] [address] Glucose [Mass/Vol] 79 mg/dL Low 82-[address] [facility] Comment on above: Performed By: #### L [id number] ####Conservation Coordinator: PHILLY FRANCO ([phone])[facility])[address] [place] [address] Phosphate [Mass/Vol] 1.7 mg/dL Low 2.3-4.7 [facility] Comment on above: Performed By: #### L [id number] ####Conservation Coordinator: PHILLY FRANCO ([phone])[facility])[address] [place] [address] Potassium [Moles/Vol] 3.1 mmol/L Low 3.5-5.1 [facility] Comment on above: Result Comment: [facility] potassium values may be up to 0.5 mmol/L lower than serum values. Performed By: #### L [id number] ####Conservation Coordinator: PHILLY FRANCO ([phone])[facility])[address] [place] [address] [place] Sodium [Moles/Vol] 136 mmol/L Normal 136-[address] [facility] Comment on above: Performed By: #### L [id number] ####Conservation Coordinator: PHILLY FRANCO ([phone])[facility])[address] [place] [address] [place] Urea nitrogen [Mass/Vol] 19 mg/dL Normal 9-23 [facility] Comment on above: Performed By: #### L [id number] ####Conservation Coordinator: PHILLY FRANCO ([phone])[facility] ([facility])[address] [place] [address] XR Hip - left 3 [facility] Radiology Study observation (narrative) [facility] XR Hip - left 3 ViewsOrdered By: Honorio Grande on 12-09-2024 [facility] Work Phone: BLOOD TYPE AND SCREEN GELon 12-08-2024 ABO GROUPING O Normal [facility] Comment on above: Performed By: #### L [id number] ####Conservation Coordinator: PHILLY FRANCO ([phone])[facility] BLOOD BANK ([facility])[address] [place] [address] RH TYPE IN BLOOD Positive Normal [facility] Comment on above: Performed By: #### L [id number] ####Conservation Coordinator: PHILLY FRANCO ([phone])[facility] BLOOD [facility] ([facility])[address] [place] [address] Blood type and Crossmatch pa kojo (Bld)on 12-08-2024 ABO group Nom (Bld) O [facility] Blood group antibody screen GEL Ql Negative [facility] D Ag Ql (RBC) Positive [facility] CBC W Auto Differential pane l (Bld)Ordered By: Rimma Galloway on 12-08-2024 Basophils (Bld) [#/Vol] 0.1 10*3/uL 0.0 - 0.2 10*3/uL [facility] Basophils/100 WBC (Bld) 0.8 % 0.0 - 2.0 % [facility] Eosinophils (Bld) [#/Vol] 0.1 10*3/uL 0.0 - 0.5 10*3/uL [facility] Eosinophils/100 WBC (Bld) 0.9 % 0.0 - 6.0 % [facility] Erythrocyte distribution width (RBC) [Ratio] 18.4 % High 11.5 - 15.0 % [facility] Hematocrit (Bld) [Volume fraction] 20.9 % Low 35.0 - 47.0 % [facility] Hemoglobin (Bld) [Mass/Vol] 6.9 g/dL Critically low 11.7 - 16.0 g/dL [facility] [employer] Immature granulocytes (Bld) [#/Vol] 0.1 10*3/uL High NINF - 0.1 10*3/uL [facility] Immature granulocytes/100 WBC (Bld) 0.4 % 0.0 - 2.0 % [facility] Interpretation and review of laboratory results Abnormal [facility] Lymphocytes (Bld) [#/Vol] 0.8 10*3/uL Low 1.0 - 4.3 10*3/uL [facility] Lymphocytes/100 WBC (Bld) 7.4 % Low 15.0 - 45.0 % [facility] MCH (RBC) [Entitic mass] 30.5 pg 26.0 - 34.0 pg [facility] MCHC (RBC) [Mass/Vol] 33 % 30.5 - 36.0 % [facility] MCV (RBC) [Entitic vol] 92.5 fL 77.0 - 99.0 fL [facility] Monocytes (Bld) [#/Vol] 0.6 10*3/uL 0.0 - 0.9 10*3/uL [facility] Monocytes/100 WBC (Bld) 4.9 % Low 5.0 - 13.0 % [facility] Neutrophils (Bld) [#/Vol] 9.6 10*3/uL High 1.8 - 7.5 10*3/uL [facility] Neutrophils/100 WBC (Bld) 85.6 % High 38.0 - 82.0 % [facility] Nucleated RBC/100 WBC (Bld) [Ratio] 0 % [facility] [employer] Platelet mean volume (Bld) [Entitic vol] 10.1 fL 9.0 - 12.7 fL [facility] Platelets (Bld) [#/Vol] 359 10*3/uL 140 - 440 10*3/uL [facility] RBC (Bld) [#/Vol] 2.26 10*6/uL Low 3.80 - 5.2 0 10*6/uL [facility] WBC (Bld) [#/Vol] 11.2 10*3/uL High 3.6 - 10.7 10*3/uL [facility] CBC WITH AUTO DIFFERENTIALon 12-08-2024 Basophils (Bld) [#/Vol] 0.1 10*3/uL Normal 0.0-0.2 [facility] Comment on above: Performed By: #### L [id number] ####Conservation Coordinator: PHILLY FRANCO ([phone])[facility] ([facility])[address] [place] [address] Basophils/100 WBC (Bld) 0.8 % Normal 0.0-2.0 [facility] Comment on above: Performed By: #### L [id number] ####Conservation Coordinator: PHILLY FRANCO ([phone])[facility])[address] [place] [address] Eosinophils (Bld) [#/Vol] 0.1 10*3/uL Normal 0.0-0.5 [facility] Comment on above: Performed By: #### L [id number] ####Conservation Coordinator: PHILLY FRANCO ([phone])[facility] ([facility])[address] [place] [address] Eosinophils/100 WBC (Bld) 0.9 % Normal 0.0-6.0 [facility] Comment on above: Performed By: #### L [id number] ####Conservation Coordinator: PHILLY FRANCO ([phone])[facility])[address] [place] [address] Erythrocyte distribution width (RBC) [Ratio] 18.4 % High 11.5-15.0 [facility] Comment on above: Performed By: #### L [id number] ####Conservation Coordinator: PHILLY FRANCO ([phone])[facility] ([facility])[address] [place] [address] Hematocrit (Bld) [Volume fraction] 20.9 % Low 35.0-47.0 [facility] Comment on above: Performed By: #### L [id number] ####Conservation Coordinator: PHILLY FRANCO ([phone])[facility])[address] [place] [address] Hemoglobin (Bld) [Mass/Vol] 6.9 g/dL Critically low 11.7-16.0 [facility] Comment on above: Performed By: #### L [id number] ####Conservation Coordinator: PHILLY FRANCO ([phone])[facility])[address] [place] [address] IMMATURE GRANS % 0.4 % Normal 0.0-2.0 [facility] Comment on above: Performed By: #### L [id number] ####Conservation Coordinator: PHILLY FRANCO ([phone])[address] IMMATURE GRANS ABSOLUTE 0.1 10*3/uL High <0.1 [facility] Comment on above: Performed By: #### L [id number] ####Conservation Coordinator: PHILLY FRANCO ([phone])[facility])[address] [place] [address] Lymphocytes (Bld) [#/Vol] 0.8 10*3/uL Low 1.0-4.3 [facility] Comment on above: Performed By: #### L [id number] ####Conservation Coordinator: PHILLY FRANCO ([phone])[address] Lymphocytes/100 WBC (Bld) 7.4 % Low 15.0-45.0 [facility] Comment on above: Performed By: #### L [id number] ####Conservation Coordinator: PHILLY FRANCO ([phone])[address] MCH (RBC) [Entitic mass] 30.5 pg Normal 26.0-34.0 [facility] Comment on above: Performed By: #### L [id number] ####Conservation Coordinator: PHILLY FRANCO ([phone])[facility])[address] [place] [address] MCHC 33.0 % Normal 30.5-36.0 [facility] Comment on above: Performed By: #### L [id number] ####Conservation Coordinator: PHILLY FRANCO ([phone])[facility] ([facility])[address] [place] [address] MCV (RBC) [Entitic vol] 92.5 fL Normal 77.0-99.0 [facility] Comment on above: Performed By: #### L [id number] ####Conservation Coordinator: PHILLY FRANCO ([phone])[facility] ([facility])[address] [place] [address] Monocytes (Bld) [#/Vol] 0.6 10*3/uL Normal 0.0-0.9 [facility] Comment on above: Performed By: #### L [id number] ####Conservation Coordinator: PHILLY FRANCO ([phone])[facility] ([facility])[address] [place] [address] Monocytes/100 WBC (Bld) 4.9 % Low 5.0-13.0 [facility] Comment on above: Performed By: #### L [id number] ####Conservation Coordinator: PHILLY FRANCO ([phone])[facility] ([facility])[address] [place] [address] NEUTROPHILS ABSOLUTE 9.6 10*3/uL High 1.8-7.5 [facility] Comment on above: Performed By: #### L [id number] ####Conservation Coordinator: PHILLY FRANCO ([phone])[facility] ([facility])[address] [place] [address] Neutrophils/100 WBC (Bld) 85.6 % High 38.0-82.0 [facility] Comment on above: Performed By: #### L [id number] ####Conservation Coordinator: PHILLY FRANCO ([phone])[facility])[address] [place] [address] NRBC 0.0 /100 WBCs Normal 0.0-2.0 [facility] Comment on above: Performed By: #### L [id number] ####Conservation Coordinator: PHILLY FRANCO ([phone])[facility] ([facility])[address] [place] [address] Platelet mean volume (Bld) [Entitic vol] 10.1 fL Normal 9.0-12.7 [facility] Comment on above: Performed By: #### L [id number] ####Conservation Coordinator: PHILLY FRANCO ([phone])[facility] ([facility])[address] [place] [address] Platelets (Bld) [#/Vol] 359 10*3/uL Normal 140-440 [facility] Comment on above: Performed By: #### L [id number] ####Conservation Coordinator: PHILLY FRANCO ([phone])[facility] ([facility])[address] [place] [address] RBC (Bld) [#/Vol] 2.26 10*6/uL Low 3.80-5.20 [facility] Comment on above: Performed By: #### L [id number] ####Conservation Coordinator: PHILLY FRANCO ([phone])[facility] ([facility])[address] [place] [address] WBC (Bld) [#/Vol] 11.2 10*3/uL High 3.6-10.7 [facility] Comment on above: Performed By: #### L [id number] ####Conservation Coordinator: PHILLY FRANCO ([phone])[facility])[address] [place] [address] COMPREHENSIVE METABOLIC PANE Fam 12-08-2024 Albumin [Mass/Vol] 1.6 g/dL Low 3.4-4.8 [facility] Comment on above: Performed By: #### L [id number] ####Conservation Coordinator: PHILLY FRANCO ([phone])[facility])[address] [place] [address] ALP [Catalytic activity/Vol] 166 U/L High 40-150 [facility] Comment on above: Performed By: #### L [id number] ####Conservation Coordinator: PHILLY FRANCO ([phone])[facility] ([facility])[address] [place] [address] ALT [Catalytic activity/Vol] 14 U/L Normal <30 [facility] Comment on above: Performed By: #### L [id number] ####Conservation Coordinator: PHILLY FRANCO ([phone])[facility] ([facility])[address] [place] [address] Anion gap [Moles/Vol] 11 mmol/L Normal 3-13 [facility] Comment on above: Performed By: #### L [id number] ####Conservation Coordinator: PHILLY FRANCO ([phone])[facility] ([facility])[address] [place] [address] AST [Catalytic activity/Vol] 46 U/L High <34 [facility] Comment on above: Performed By: #### L [id number] ####Conservation Coordinator: PHILLY FRANCO ([phone])[facility] ([facility])[address] [place] [address] Bilirubin [Mass/Vol] 0.4 mg/dL Normal <1.2 [facility] Comment on above: Performed By: #### L [id number] ####Conservation Coordinator: PHILLY FRANCO ([phone])[facility] ([facility])[address] [place] [address] Calcium [Mass/Vol] 8.1 mg/dL Low 8.8-10.0 [facility] Comment on above: Performed By: #### L [id number] ####Conservation Coordinator: PHILLY FRANCO ([phone])[facility] ([facility])[address] [place] [address] Chloride [Moles/Vol] 94 mmol/L Low 98-107 [facility] Comment on above: Performed By: #### L [id number] ####Conservation Coordinator: PHILLY FRANCO ([phone])[facility])[address] [place] [address] CO2 [Moles/Vol] 30 mmol/L Normal 23-31 [facility] Comment on above: Performed By: #### L [id number] ####Conservation Coordinator: PHILLY FRANCO ([phone])[facility] ([facility])[address] [place] [address] Creatinine [Mass/Vol] 3.05 mg/dL High 0.57-1.11 [facility] Comment on above: Performed By: #### L [id number] ####Conservation Coordinator: PHILLY FRANCO ([phone])[facility] ([facility])[address] [place] [address] [place] GLOMERULAR FILTRATION RATE ML/MIN/1.73 SQ M.PREDICTED 15.5 mL/min/1.73m*2 Low >60.[address] [facility] Comment on above: Result Comment: Calc ulation based on the Chronic Kidney Disease Epidemiology Collaboration (CKD-EPI) equation refit without adjustment for race Performed By: #### L [id number] ####Conservation Coordinator: PHILLY FRANCO ([phone])[facility] ([facility])[address] [place] [address] Glucose [Mass/Vol] 101 mg/dL Normal 82-[address] [facility] Comment on above: Performed By: #### L [id number] ####Conservation Coordinator: PHILLY FRANCO ([phone])[facility] ([facility])[address] [place] [address] [place] Potassium [Moles/Vol] 2.6 mmol/L Critically low 3.5-5.[address] [facility] Comment on above: Result Comment: [facility] potassium values may be up to 0.5 mmol/L lower than serum values. Performed By: #### L [id number] ####Conservation Coordinator: PHILLY FRANCO ([phone])[facility] ([facility])[address] [place] [address] Protein [Mass/Vol] 6.4 g/dL Normal 6.4-8.[address] [facility] Comment on above: Performed By: #### L [id number] ####Conservation Coordinator: PHILLY FRANCO ([phone])[facility])[address] [place] [address] [place] Sodium [Moles/Vol] 135 mmol/L Low 136-[address] [facility] Comment on above: Performed By: #### L [id number] ####Conservation Coordinator: PHILLY FRANCO ([phone])[facility] ([facility])[address] [place] [address] Urea nitrogen [Mass/Vol] 17 mg/dL Normal 9- [facility] Comment on above: Performed By: #### L [id number] ####Conservation Coordinator: PHILLY FRANCO ([phone])[facility] [place] [address] CT CERVICAL SPINE WO IV CONT RASTon 12-08-2024 CT CERVICAL SPINE WO IV CONTRAST Normal [facility] CT HEAD WO IV CONTRASTon CT HEAD WO IV CONTRAST Normal [facility] Comprehensive metabolic 1998 panelOrdered By: Brenda Means on 12-08-2024 Albumin [Mass/Vol] 1.6 g/dL Low 3.4 - 4.8 g/dL [facility] ALP [Catalytic activity/Vol] 166 U/L High 40 - 150 U/L [facility] ALT [Catalytic activity/Vol] 14 U/L NINF - 30 U/L [facility] Anion gap [Moles/Vol] 11 mmol/L 3 - 13 mmol/L [facility] AST [Catalytic activity/Vol] 46 U/L High [facility] - 34 U/L [facility] Bilirubin [Mass/Vol] 0.4 mg/dL NINF - 1.2 mg/dL [facility] Calcium [Mass/Vol] 8.1 mg/dL Low 8.8 - 10. 0 mg/dL [facility] Chloride [Moles/Vol] 94 mmol/L Low 98 - 10 7 mmol/L [facility] CO2 [Moles/Vol] 30 mmol/L 23 - 31 mmol/L [facility] Creatinine [Mass/Vol] 3.05 mg/dL High 0.57 - 1.11 mg/dL [facility] GFR/1.73 sq M.predicted (S/P/Bld) [Vol rate/Area] 15.5 mL/min Low - PINF [facility] Glucose [Mass/Vol] 101 mg/dL 82 - 115 mg/dL [facility] Interpretation and review of laboratory results Abnormal [facility] Potassium [Moles/Vol] 2.6 mmol/L Critically low 3.5 - 5.1 mmol/L [facility] Protein [Mass/Vol] 6.4 g/dL 6.4 - 8.3 g/dL [facility] [employer] Sodium [Moles/Vol] 135 mmol/L Low 136 - 145 mmol/L [facility] [employer] Urea nitrogen [Mass/Vol] 17 mg/dL 9 - 23 mg/dL [facility] ED Nursing Noteon 12-08-2024 ED Nursing Note MRI screening completed at this time. Normal [facility] ED Provider Noteon ED Provider Note Normal [facility] No Panel Informationon 12-08 [facility] Radiology Study observation (narrative) [facility] [employer] No Panel InformationOrdered By: Norman Malin on 12-08-2024 [employer] Phone: No Panel InformationOrdered By: Mason Duran on 12-06-2024 Left antecubital vein depth 2.4 cm [employer] Phone: Left Antecutibal Vein Diam 1.1 mm [employer] Phone: Left Axillary Artery Diameter 0.77 cm [employer] Phone: [phone] Left Axillary Vein Diameter 5.3 mm [employer] Phone: Left Brachial A dist PSV 54.3 cm/s [employer] Phone: [phone] Left brachial artery distal diameter 0.57 cm [employer] Phone: [phone] Left Brachial Vein 1 Diam 1.9 mm [employer] Phone: Left Cephalic Vein Lower Arm Dist Diam 0.8 mm [employer] Phone: [phone] Left Cephalic Vein Lower Arm Mid Diam 1.1 mm [employer] Phone: Left Cephalic Vein Lower Arm Prox Diam 0.8 mm [employer] Phone: [phone] Left Cephalic Vein Upper Arm Dist Diam 1.2 mm [employer] Phone: Left forearm cephalic vein distal depth 1.93 cm [employer] Phone: Left forearm cephalic vein mid depth 2.11 cm [employer] Phone: Left forearm cephalic vein proximal depth 1.93 cm [facility] Work Phone: Left Mid Ax A PSV 52.2 cm/s [facility] Work Phone: Left Radial A dist PSV 76 cm/s [facility] Work Phone: Left Radial A mid PSV 103.7 cm/s [facility] Work Phone: Left Radial A prox PSV 65.3 cm/s [facility] Work Phone: Left radial artery dist [...] PSV 66.2 cm/s [facility] Work Phone: Right Brachial A mid PSV 83.4 cm/s [facility] Work Phone: Right Brachial A prox PSV 85.8 cm/s [facility] Work Phone: Right brachial artery distal diameter 0.49 cm [facility] Work Phone: Right brachial artery mid diameter 0.49 cm [facility] Work Phone: Right brachial artery proximal diameter 0.55 cm [facility] [employer] Work Phone: [phone] Right Brachial Vein 1 Diam 3.2 mm [facility] [employer] Work Phone: Right Brachial Vein 2 Diam 2.6 mm [facility] [employer] Work Phone: Right Cephalic Vein Upper Arm Dist Diam 0.9 mm [facility] [employer] Work Phone: [phone] Right Cephalic Vein Upper Arm Mid Diam 0.5 mm [facility] [employer] Work Phone: Right Radial A dist PSV 76 cm/s [facility] [employer] Work Phone: Right Radial A mid PSV 82.1 cm/s [place] [facility] [employer] Work Phone: Right Radial A prox PSV 88.3 cm/s [facility] [employer] Work Phone: Right radial artery distal diameter 0.27 cm [facility] [employer] Work Phone: [phone] Right radial artery mid diameter 0.23 cm [facility] [employer] Work Phone: [phone] Right radial artery proximal diameter 0.23 cm [facility] [employer] Work Phone: [phone] Right Subclavian Vein Diameter 7.6 mm [facility] [employer] Work Phone: [phone] Right upper cephalic vein distal depth 2.2 cm [facility] [employer] Work Phone: Right upper cephalic vein mid depth 2.15 cm [facility] [employer] Phone: No Panel Informationon 12-06 Chronic superficial [...] CPACS Progress Noteon 12-06-2024 Progress Note Normal [facility] CBC-Complete Blood Cnt No Di ffon 12-05-2024 Erythrocyte distribution width (RBC) [Ratio] 18.8 % High 11.6-14.6 [facility] Comment on above: Order Comment: 408.2 Performed By: #### L 100.4500, L100.0500 #### [facility] [address] [place], [address] Hematocrit (Bld) [Volume fraction] 22.4 % Low 37-47 [facility] Comment on above: Order Comment: 408.2 Performed By: #### L 100.4500, L100.0500 #### [facility] [address] [place], [address] Hemoglobin (Bld) [Mass/Vol] 7.2 g/dL Low 12.0-15.0 [facility] Comment on above: Order Comment: 408.2 Performed By: #### L 100.4500, L100.0500 #### [facility] [address] [place], [address] MCH (RBC) [Entitic mass] 30.4 pg Normal 27.0-32.0 [facility] Comment on above: Order Comment: 408.2 Performed By: #### L 100.4500, L100.0500 #### [facility] [address] [place], [address] MCHC (RBC) [Mass/Vol] 32.1 g/dL Normal 32-36 [facility] Comment on above: Order Comment: 408.2 Performed By: #### L 100.4500, L100.0500 #### [facility] [address] [place], [address] MCV (RBC) [Entitic vol] 94.5 fL Normal 81-99 [facility] Comment on above: Order Comment: 408.2 Performed By: #### L 100.4500, L100.0500 #### [facility] [address] [place], [address] Platelet mean volume (Bld) [Entitic vol] 10.7 fL Normal 6.2-12.0 [facility] Comment on above: Order Comment: 408.2 Performed By: #### L 100.4500, L100.0500 #### [facility] [address] [place], [address] Platelets (Bld) [#/Vol] 395 10*3/uL Normal 150-450 [facility] Comment on above: Order Comment: 408.2 Performed By: #### L 100.4500, L100.0500 #### [facility] [address] [place], [address] RBC (Bld) [#/Vol] 2.37 10*6/uL Low 4.2-5.4 [facility] Comment on above: Order Comment: 408.2 Performed By: #### L 100.4500, L100.0500 #### [facility] [address] [place], [address] RDW SD 65.1 fl High 35.1-43.9 [facility] Comment on above: Order Comment: 408.2 Performed By: #### L 100.4500, L100.0500 #### [facility] [address] [place], [address] WBC (Bld) [#/Vol] 8.5 10*3/uL Normal 4.4-11.0 [facility] Comment on above: Order Comment: 408.2 Performed By: #### L 100.4500, L100.0500 #### [facility] [address] [place], [address] Differential Commenton 12-05 SMEAR COMMENT COMMENT Normal [facility] Comment on above: Order Comment: 408.2 Result Comment: 2+ A NISO. Performed By: #### L 100.4500, L100.0500 #### [facility] [address] [place], [address] CBC-Complete Blood Cnt No Di ffon 12-01-2024 HCT Normal 37-47 [facility] Comment on above: Order Comment: 408-2 Result Comment: This specimen has been REJECTED due to Laboratory criteria: Clotted. TIANNA RUIZ has been notified of need of recollection. 12/01/24 Lucrecia Huber Performed By: #### L 100.0500 #### [facility] [address] [place], [address] HGB Normal 12.0-15.0 [facility] Comment on above: Order Comment: 408-2 Result Comment: This specimen has been REJECTED due to Laboratory criteria: Clotted. TIANNA RUIZ has been notified of need of recollection. 12/01/24 0856 Aaliyah Huber Performed By: #### L 100.0500 #### [facility] [address] [place], [address] MCH Normal 27.0-32.0 [facility] Comment on above: Order Comment: 408-2 Result Comment: This specimen has been REJECTED due to Laboratory criteria: Clotted. TIANNA RUIZ has been notified of need of recollection. 12/01/24 0856 Aaliyah Huber Performed By: #### L 100.0500 #### [facility] [address] [place], [address] MCHC Normal 32-36 [facility] Comment on above: Order Comment: 408-2 Result Comment: This specimen has been REJECTED due to Laboratory criteria: Clotted. TIANNA RUIZ has been notified of need of recollection. 12/01/24 0856 Aaliyah Huber Performed By: #### L 100.0500 #### [facility] [address] [place], [address] MCV Normal 81-99 [facility] Comment on above: Order Comment: 408-2 Result Comment: This specimen has been REJECTED due to Laboratory criteria: Clotted. TIANNA RUIZ has been notified of need of recollection. 12/01/24 0856 Aaliyah Huber Performed By: #### L 100.0500 #### [facility] [address] [place], [address] PLT Normal 150-450 [facility] Comment on above: Order Comment: 408-2 Result Comment: This specimen has been REJECTED due to Laboratory criteria: Clotted. TIANNA RUIZ has been notified of need of recollection. 12/01/24 0856 Aaliyah Huber Performed By: #### L 100.0500 #### [facility] [address] [place], [address] RBC Normal 4.2-5.4 [facility] Comment on above: Order Comment: 408-2 Result Comment: This specimen has been REJECTED due to Laboratory criteria: Clotted. TIANNA RUIZ has been notified of need of recollection. 12/01/24 0856 Aaliyah Huber Performed By: #### L 100.0500 #### [facility] [address] [place], [address] RDW CV Normal 11.6-14.6 [facility] Comment on above: Order Comment: 408-2 Result Comment: This specimen has been REJECTED due to Laboratory criteria: Clotted. TIANNA RUIZ has been notified of need of recollection. 12/01/24 0856 Aaliyah Huber Performed By: #### L 100.0500 #### [facility] [address] [place], [address] RDW SD Normal 35.1-43.9 [facility] Comment on above: Order Comment: 408-2 Result Comment: This specimen has been REJECTED due to Laboratory criteria: Clotted. TIANNA RUIZ has been notified of need of recollection. 12/01/24 0856 Aaliyah Huber Performed By: #### L 100.0500 #### [facility] [address] [place], [address] WBC Normal 4.4-11.0 [facility] Comment on above: Order Comment: 408-2 Result Comment: This specimen has been REJECTED due to Laboratory criteria: Clotted. TIANNA RUIZ has been notified of need of recollection. 12/01/2456 Aaliyah Huber Performed By: #### L 100.0500 #### [facility] [address] [place], [address] CBC-Complete Blood Cnt No Di ffon 11-30-2024 Erythrocyte distribution width (RBC) [Ratio] 18.5 % High 11.6-14.6 [facility] Comment on above: Order Comment: 408.2 Performed By: #### L 100.0500 #### [facility] [address] [place], [address] Hematocrit (Bld) [Volume fraction] 21.7 % Low 37-47 [facility] Comment on above: Order Comment: 408.2 Performed By: #### L 100.0500 #### [facility] [address] [place], [address] Hemoglobin (Bld) [Mass/Vol] 6.9 g/dL Low 12.0-15.0 [facility] Comment on above: Order Comment: 408.2 Performed By: #### L 100.0500 #### [facility] [address] [place], [address] MCH (RBC) [Entitic mass] 29.9 pg Normal 27.0-32.0 [facility] Comment on above: Order Comment: 408.2 Performed By: #### L 100.0500 #### [facility] [address] [place], [address] MCHC (RBC) [Mass/Vol] 31.8 g/dL Low 32-36 [facility] Comment on above: Order Comment: 408.2 Performed By: #### L 100.0500 #### [facility] [address] [place], [address] MCV (RBC) [Entitic vol] 93.9 fL Normal 81-99 [facility] Comment on above: Order Comment: 408.2 Performed By: #### L 100.0500 #### [facility] [address] [place], [address] Platelet mean volume (Bld) [Entitic vol] 10.5 fL Normal 6.2-12.0 [facility] Comment on above: Order Comment: 408.2 Performed By: #### L 100.0500 #### [facility] [address] [place], [address] Platelets (Bld) [#/Vol] 342 10*3/uL Normal 150-450 [facility] Comment on above: Order Comment: 408.2 Performed By: #### L 100.0500 #### [facility] [address] [place], [address] RBC (Bld) [#/Vol] 2.31 10*6/uL Low 4.2-5.4 [facility] Comment on above: Order Comment: 408.2 Performed By: #### L 100.0500 #### [facility] [address] [place], [address] RDW SD 63.3 fl High 35.1-43.9 [facility] Comment on above: Order Comment: 408.2 Performed By: #### L 100.0500 #### [facility] [address] [place], [address] WBC (Bld) [#/Vol] 7.0 10*3/uL Normal 4.4-11.0 [facility] Comment on above: Order Comment: 408.2 Performed By: #### L 100.0500 #### [facility] [address] [place], [address] Progress Noteon 11-27-2024 Progress Note Normal [facility] KEPPRA (LEVETIRACETAM)on KEPPRA 18.7 ug/mL Normal 10.0-40.0 [facility] Comment on above: Order Comment: 408-2 Result Comment: Perf ormed at: BN - [facility] [address] [id number] Document Review Attorney: Scott Little MD, Phone: [phone] Performed By: #### L 3310.0000 #### [facility] [address] [place], [address] BASIC METABOLIC PANELon 11-04 Anion gap [Moles/Vol] 13 mmol/L Normal 3-13 [facility] Comment on above: Performed By: #### L AB15 ####Conservation Coordinator: DEANN CURRAN ([phone])[facility] ([facility])[address] Calcium [Mass/Vol] 8.4 mg/dL Low 8.8-10.[address] [facility] Comment on above: Performed By: #### L AB15 ####Conservation Coordinator: DEANN CURRAN ([phone])[facility] ([facility])[address] Chloride [Moles/Vol] 94 mmol/L Low 98-107 [facility] Comment on above: Performed By: #### L AB15 ####Conservation Coordinator: DEANN CURRAN ([phone])[facility] [place] ([facility])[address] CO2 [Moles/Vol] 27 mmol/L Normal 23-[address] [facility] Comment on above: Performed By: #### L AB15 ####Conservation Coordinator: DEANN CURRAN ([phone])[facility] [place] ([facility])[address] Creatinine [Mass/Vol] 2.28 mg/dL High 0.57-1.11 [facility] Comment on above: Performed By: #### L AB15 ####Conservation Coordinator: DEANN CURRAN ([phone])[facility] [place] ([facility])[address] [place] [address] [place] GLOMERULAR FILTRATION RATE ML/MIN/1.73 SQ M.PREDICTED 22.0 mL/min/1.73m*2 Low >60.[address] [facility] Comment on above: Result Comment: Calc ulation based on the Chronic Kidney Disease Epidemiology Collaboration (CKD-EPI) equation refit without adjustment for race Performed By: #### L AB15 ####Conservation Coordinator: DEANN CURRAN ([phone])[facility] [place] ([facility])[address] [place] [address] [place] Glucose [Mass/Vol] 81 mg/dL Low 82-[address] [facility] Comment on above: Performed By: #### L AB15 ####Conservation Coordinator: DEANN CURRAN ([phone])[facility] Potassium [Moles/Vol] 3.1 mmol/L Low 3.5-5.1 [facility] Comment on above: Result Comment: [facility] potassium values may be up to 0.5 mmol/L lower than serum values. Performed By: #### L AB15 ####Conservation Coordinator: DEANN CURRAN ([phone])[facility] Sodium [Moles/Vol] 134 mmol/L Low 136-[address] [facility] Comment on above: Performed By: #### L AB15 ####Conservation Coordinator: DEANN CURRAN ([phone])[facility] ([facility])[address] [place] [address] Urea nitrogen [Mass/Vol] 10 mg/dL Normal 9-[address] [facility] Comment on above: Performed By: #### L AB15 ####Conservation Coordinator: DEANN CURRAN ([phone])[facility] ([facility])[address] [place] [address] BLOOD TYPE AND SCREEN GELon 11-22-2024 ABO GROUPING O Normal [facility] Comment on above: Performed By: #### L [id number] ####Conservation Coordinator: DEANN CURRAN ([phone])[facility] BLOOD [facility] ([facility])[address] [place] [address] RH TYPE IN BLOOD Positive Normal [facility] Comment on above: Performed By: #### L [id number] ####Conservation Coordinator: DEANN CURRAN ([phone])[facility] ([facility])[address] [place] [address] Basic metabolic 1998 panelon 11-22-2024 Anion gap [Moles/Vol] 13 mmol/L 3 - 13 mmol/L [facility] Calcium [Mass/Vol] 8.4 mg/dL Low 8.8 - 10. 0 mg/dL [facility] Chloride [Moles/Vol] 94 mmol/L Low 98 - 10 7 mmol/L [facility] CO2 [Moles/Vol] 27 mmol/L 23 - 31 mmol/L [facility] Creatinine [Mass/Vol] 2.28 mg/dL High 0.57 - 1.11 mg/dL [facility] GFR/1.73 sq M.predicted (S/P/Bld) [Vol rate/Area] 22 mL/min Low - PINF [facility] Comment on above: Calculation based on the Chronic Kidney Disease Epidemiology Collaboration (CKD-EPI) equation refit without adjustment for race Glucose [Mass/Vol] 81 mg/dL Low 82 - 115 mg/dL [facility] Interpretation and review of laboratory results Abnormal [facility] Potassium [Moles/Vol] 3.1 mmol/L Low 3.5 - 5.1 mmol/L [facility] Comment on above: Plasma potassium bhaskar ues may be up to 0.5 mmol/L lower than serum values. Sodium [Moles/Vol] 134 mmol/L Low 136 - 145 mmol/L [facility] Urea nitrogen [Mass/Vol] 10 mg/dL 9 - 23 mg/dL [facility] Blood type and Crossmatch pa kojo (Bld)on 11-22-2024 ABO group Nom (Bld) O [facility] Blood group antibody screen GEL Ql Negative [facility] D Ag Ql (RBC) Positive [facility] CBC W Auto Differential pane l (Bld)on 11-22-2024 Basophils (Bld) [#/Vol] 0.2 10*3/uL 0.0 - 0.2 10*3/uL [facility] Basophils/100 WBC (Bld) 2.3 % High 0.0 - 2.0 % [facility] Eosinophils (Bld) [#/Vol] 0.4 10*3/uL 0.0 - 0.5 10*3/uL [facility] Eosinophils/100 WBC (Bld) 4.2 % 0.0 - 6.0 % [facility] Erythrocyte distribution width (RBC) [Ratio] 17.8 % High 11.5 - 15.0 % [facility] Hematocrit (Bld) [Volume fraction] 23.9 % Low 35.0 - 47.0 % [facility] Hemoglobin (Bld) [Mass/Vol] 7.8 g/dL Low 11.7 - 16.0 g/dL [facility] Immature granulocytes (Bld) [#/Vol] 0 10*3/uL NINF - 0.1 10*3/uL [facility] Immature granulocytes/100 WBC (Bld) 0.5 % 0.0 - 2.0 % [facility] Interpretation and review of laboratory results Abnormal [facility] IPF 3 [facility] Lymphocytes (Bld) [#/Vol] 1.6 10*3/uL 1.0 - 4.3 10*3/uL [facility] Lymphocytes/100 WBC (Bld) 18.4 % 15.0 - 45.0 % [facility] MCH (RBC) [Entitic mass] 29.8 pg 26.0 - 34.0 pg [facility] MCHC (RBC) [Mass/Vol] 32.6 % 30.5 - 36.0 % [facility] MCV (RBC) [Entitic vol] 91.2 fL 77.0 - 99.0 fL [facility] Monocytes (Bld) [#/Vol] 0.8 10*3/uL 0.0 - 0.9 10*3/uL [facility] Monocytes/100 WBC (Bld) 9.3 % 5.0 - 13.0 % [facility] Neutrophils (Bld) [#/Vol] 5.6 10*3/uL 1.8 - 7.5 10*3/uL [facility] Neutrophils/100 WBC (Bld) 65.3 % 38.0 - 82.0 % [facility] Nucleated RBC/100 WBC (Bld) [Ratio] 0 % [facility] Platelet mean volume (Bld) [Entitic vol] 10.3 fL 9.0 - 12.7 fL [facility] Platelets (Bld) [#/Vol] 575 10*3/uL High 140 - 440 10*3/uL [facility] RBC (Bld) [#/Vol] 2.62 10*6/uL Low 3.80 - 5.2 0 10*6/uL [facility] WBC (Bld) [#/Vol] 8.6 10*3/uL 3.6 - 10.7 10*3/uL [facility] CBC WITH AUTO DIFFERENTIALon 11-22-2024 Basophils (Bld) [#/Vol] 0.2 10*3/uL Normal 0.0-0.[address] [facility] Comment on above: Performed By: #### L [id number] ####Conservation Coordinator: DEANN FERNANDESRYLEE ([phone])[facility] ([facility])[address] Basophils/100 WBC (Bld) 2.3 % High 0.0-2.0 [facility] Comment on above: Performed By: #### L [id number] ####Conservation Coordinator: DEANN CURRAN ([phone])[facility] ([facility])[address] Eosinophils (Bld) [#/Vol] 0.4 10*3/uL Normal 0.0-0.[address] [facility] Comment on above: Performed By: #### L [id number] ####Conservation Coordinator: DEANN FERNANDESRYLEE ([phone])[facility] [place] ([facility])[address] Eosinophils/100 WBC (Bld) 4.2 % Normal 0.0-6.[address] [facility] Comment on above: Performed By: #### L [id number] ####Conservation Coordinator: DEANN FERNANDESRYLEE ([phone])[facility] ([facility])[address] Erythrocyte distribution width (RBC) [Ratio] 17.8 % High 11.5-15.[address] [facility] Comment on above: Performed By: #### L [id number] ####Conservation Coordinator: DEANN CURRAN ([phone])[facility] [place] ([facility])[address] Hematocrit (Bld) [Volume fraction] 23.9 % Low 35.0-47.0 [facility] Comment on above: Performed By: #### L [id number] ####Conservation Coordinator: DEANN CURRAN ([id number])[facility] ([facility])[address] Hemoglobin (Bld) [Mass/Vol] 7.8 g/dL Low 11.7-16.0 [facility] Comment on above: Performed By: #### L [id number] ####Conservation Coordinator: DEANN CURRAN ([phone])[facility] [place] ([facility])[address] IMMATURE GRANS % 0.5 % Normal 0.0-2.0 [facility] Comment on above: Performed By: #### L [id number] ####Conservation Coordinator: DEANN CURRAN ([phone])[facility] ([facility])[address] IMMATURE GRANS ABSOLUTE 0.0 10*3/uL Normal <0.1 [facility] Comment on above: Performed By: #### L [id number] ####Conservation Coordinator: DEANN CURRAN ([phone])[facility] ([facility])[address] IPF 3 Normal [facility] Comment on above: Performed By: #### L [id number] ####Conservation Coordinator: DEANN CURRAN ([phone])[facility] ([facility])[address] Lymphocytes (Bld) [#/Vol] 1.6 10*3/uL Normal 1.0-4.3 [facility] Comment on above: Performed By: #### L [id number] ####Conservation Coordinator: DEANN CURRAN ([phone])[facility] [place] ([facility])[address] Lymphocytes/100 WBC (Bld) 18.4 % Normal 15.0-45.0 [facility] Comment on above: Performed By: #### L [id number] ####Conservation Coordinator: DEANN CURRAN ([phone])[facility] ([facility])[address] MCH (RBC) [Entitic mass] 29.8 pg Normal 26.0-34.[address] [facility] Comment on above: Performed By: #### L [id number] ####Conservation Coordinator: DEANN CURRAN ([id number])[facility] ([facility])[address] MCHC 32.6 % Normal 30.5-36.[address] [facility] Comment on above: Performed By: #### L [id number] ####Conservation Coordinator: DEANN FERNANDESRYLEE ([phone])[facility] ([facility])[address] MCV (RBC) [Entitic vol] 91.2 fL Normal 77.0-99.0 [facility] Comment on above: Performed By: #### L [id number] ####Conservation Coordinator: DEANN CURRAN ([phone])[facility] [place] ([facility])[address] [place] [address] Monocytes (Bld) [#/Vol] 0.8 10*3/uL Normal 0.0-0.[address] [facility] Comment on above: Performed By: #### L [id number] ####Conservation Coordinator: DEANN CURRAN ([phone])[facility] [place] ([facility])[address] [place] [address] Monocytes/100 WBC (Bld) 9.3 % Normal 5.0-13.0 [facility] Comment on above: Performed By: #### L [id number] ####Conservation Coordinator: DEANN CURRAN ([phone])[facility] [place] ([facility])[address] [place] [address] NEUTROPHILS ABSOLUTE 5.6 10*3/uL Normal 1.8-7.5 [facility] Comment on above: Performed By: #### L [id number] ####Conservation Coordinator: DEANN CURRAN ([phone])[facility] [place] ([facility])[address] [place] [address] Neutrophils/100 WBC (Bld) 65.3 % Normal 38.0-82.[address] [facility] Comment on above: Performed By: #### L [id number] ####Conservation Coordinator: DEANN CURRAN ([id number])[facility] ([facility])[address] NRBC 0.0 /100 WBCs Normal 0.0-2.[address] [facility] Comment on above: Performed By: #### L [id number] ####Conservation Coordinator: DEANN CURRAN ([id number])[facility]ITAL[facility]BC[facility]ENN (SBHLAB)[address] Platelet mean volume (Bld) [Entitic vol] 10.3 fL Normal 9.0-12.[address] [facility] Comment on above: Performed By: #### L [id number] ####Conservation Coordinator: DEANN CURRAN ([phone])[facility]ITAL[facility]ann [facility]IL[facility]RESBY[facility] ([facility])[address] Platelets (Bld) [#/Vol] 575 10*3/uL High 140-[address] [facility] Comment on above: Performed By: #### L [id number] ####Conservation Coordinator: DEANN CURRAN ([phone])[facility]ITAL[facility] FERNANDESN (SBHLAB)[address] RBC (Bld) [#/Vol] 2.62 10*6/uL Low 3.80-5.[address] [facility] Comment on above: Performed By: #### L [id number] ####Conservation Coordinator: DEANN CURRAN ([phone])[facility] [place] ([facility])[address] WBC (Bld) [#/Vol] 8.6 10*3/uL Normal 3.6-10.[address] [facility] Comment on above: Performed By: #### L [id number] ####Conservation Coordinator: DEANN CURRAN ([phone])[facility] ([facility])[address] ED Nursing Noteon 11-22-2024 ED Nursing Note Called [facility] [phone]. Spoke with CYNTHIA Perry. Advised pt sent in from dialysis for low hgb of 6.5, [facility] ED hgb 7.8. pt stable and will be sent back. Normal [facility] ED Provider Noteon ED Provider Note Normal [facility] Progress Noteon 11-16-2024 Progress Note [facility] [id number] 11-15-2024 [id number] [facility] - [facility] [address] [facility] [id number] [id number] Patient/Family Choice Normal [facility] [id number] [facility] [id number] MAR & Discharge med list transmitted to [facility] via [employer] per TCC request. Electronically signed by JASPREET Verdin [facility] [id number] [facility] Nursing Noteon 11-15-2024 Nursing Note Report called to david dunn at [facility]. All questions answered. supervisor counseling and guidance time scheduled for 1230. Normal [facility] Progress Noteon 11-15-2024 Progress Note [facility] Consulton 11-14-2024 Consult [facility] [id number] 11-13-2024 [id number] [facility] [id number] Patient is from a SN F. 30 day readmission is not warranted. [facility] BASIC METABOLIC PANELon 11-03 Anion gap [Moles/Vol] 11 mmol/L Normal 06-15 [facility] Comment on above: Performed By: #### L AB15 ####Conservation Coordinator: PHILLY FRANCO ([phone])[facility] ([facility])[address] [place] [address] Calcium [Mass/Vol] 7.6 mg/dL Low 8.8-10.[address] [facility] Comment on above: Performed By: #### L AB15 ####Conservation Coordinator: PHILLY FRANCO ([phone])[facility] ([facility])[address] [place] [address] [place] Chloride [Moles/Vol] 103 mmol/L Normal 98-107 [facility] Comment on above: Performed By: #### L [id number] ####Conservation Coordinator: PHILLY FRANCO ([phone])[facility])[address] [place] [address] CO2 [Moles/Vol] 23 mmol/L Normal 23-[address] [facility] Comment on above: Performed By: #### L [id number] ####Conservation Coordinator: PHILLY FRANCO ([phone])[facility])[address] [place] [address] Creatinine [Mass/Vol] 3.51 mg/dL High 0.57-1.11 [facility] Comment on above: Performed By: #### L [id number] ####Conservation Coordinator: PHILLY FRANCO ([phone])[facility])[address] [place] [address] GLOMERULAR FILTRATION RATE ML/MIN/1.73 SQ M.PREDICTED 13.1 mL/min/1.73m*2 Low >60.[address] [facility] Comment on above: Result Comment: Calc ulation based on the Chronic Kidney Disease Epidemiology Collaboration (CKD-EPI) equation refit without adjustment for race Performed By: #### L [id number] ####Conservation Coordinator: PHILLY FRANCO ([phone])[facility])[address] [place] [address] [place] Glucose [Mass/Vol] 62 mg/dL Low 82-[address] [facility] Comment on above: Performed By: #### L [id number] ####Conservation Coordinator: PHILLY FRANCO ([phone])[facility])[address] [place] [address] [place] Potassium [Moles/Vol] 4.0 mmol/L Normal 3.5-5.1 [facility] Comment on above: Result Comment: [facility] potassium values may be up to 0.5 mmol/L lower than serum values. Performed By: #### L AB15 ####Conservation Coordinator: PHILLY [phone])[facility] ([facility])[address] [place] [address] Sodium [Moles/Vol] 137 mmol/L Normal 136-[address] [facility] Comment on above: Performed By: #### L [id number] ####Conservation Coordinator: PHILLY FRANCO ([phone])[facility] [place] [address] Urea nitrogen [Mass/Vol] 16 mg/dL Normal 9-[address] [facility] Comment on above: Performed By: #### L [id number] ####Conservation Coordinator: PHILLY FRANCO ([phone])[facility] [place] [address] Basic metabolic 1998 panelon 11-13-2024 Anion gap [Moles/Vol] 11 mmol/L 3 - 13 mmol/L [facility] Calcium [Mass/Vol] 7.6 mg/dL Low 8.8 - 10. 0 mg/dL [facility] Chloride [Moles/Vol] 103 mmol/L 98 - 10 7 mmol/L [facility] CO2 [Moles/Vol] 23 mmol/L 23 - 31 mmol/L [facility] Creatinine [Mass/Vol] 3.51 mg/dL High 0.57 - 1.11 mg/dL [facility] GFR/1.73 sq M.predicted (S/P/Bld) [Vol rate/Area] 13.1 mL/min Low - PINF [facility] Comment on above: Calculation based on the Chronic Kidney Disease Epidemiology Collaboration (CKD-EPI) equation refit without adjustment for race Glucose [Mass/Vol] 62 mg/dL Low 82 - 115 mg/dL [facility] Interpretation and review of laboratory results Abnormal [facility] Potassium [Moles/Vol] 4 mmol/L 3.5 - 5.1 mmol/L [facility] Comment on above: Plasma potassium bhaskar ues may be up to 0.5 mmol/L lower than serum values. Sodium [Moles/Vol] 137 mmol/L 136 - 145 mmol/L [facility] Urea nitrogen [Mass/Vol] 16 mg/dL 9 - 23 mg/dL [facility] CBC W Auto Differential pane l (Bld)Ordered By: Andre Ervin on 11-13-2024 Basophils (Bld) [#/Vol] 0.1 10*3/uL 0.0 - 0.2 10*3/uL [facility] Basophils/100 WBC (Bld) 1.3 % 0.0 - 2.0 % [facility] Eosinophils (Bld) [#/Vol] 0.7 10*3/uL High 0.0 - 0.5 10*3/uL [facility] Eosinophils/100 WBC (Bld) 7.3 % High 0.0 - 6.0 % [facility] Erythrocyte distribution width (RBC) [Ratio] 17 % High 11.5 - 15.0 % [facility] Hematocrit (Bld) [Volume fraction] 22.7 % Low 35.0 - 47.0 % [facility] Hemoglobin (Bld) [Mass/Vol] 7.1 g/dL Low 11.7 - 16.0 g/dL [facility] Immature granulocytes (Bld) [#/Vol] 0.1 10*3/uL High NINF - 0.1 10*3/uL [facility] Immature granulocytes/100 WBC (Bld) 1.1 % 0.0 - 2.0 % [facility] Interpretation and review of laboratory results Abnormal [facility] Lymphocytes (Bld) [#/Vol] 1.9 10*3/uL 1.0 - 4.3 10*3/uL [facility] Lymphocytes/100 WBC (Bld) 19.1 % 15.0 - 45.0 % [facility] MCH (RBC) [Entitic mass] 28.7 pg 26.0 - 34.0 pg [facility] MCHC (RBC) [Mass/Vol] 31.3 % 30.5 - 36.0 % [facility] MCV (RBC) [Entitic vol] 91.9 fL 77.0 - 99.0 fL [facility] Monocytes (Bld) [#/Vol] 0.9 10*3/uL 0.0 - 0.9 10*3/uL [facility] Monocytes/100 WBC (Bld) 8.7 % 5.0 - 13.0 % [facility] Neutrophils (Bld) [#/Vol] 6.3 10*3/uL 1.8 - 7.5 10*3/uL [facility] Neutrophils/100 WBC (Bld) 62.5 % 38.0 - 82.0 % [facility] Nucleated RBC/100 WBC (Bld) [Ratio] 0 % [facility] Platelet mean volume (Bld) [Entitic vol] 10.3 fL 9.0 - 12.7 fL [facility] Platelets (Bld) [#/Vol] 495 10*3/uL High 140 - 440 10*3/uL [facility] RBC (Bld) [#/Vol] 2.47 10*6/uL Low 3.80 - 5.2 0 10*6/uL [facility] WBC (Bld) [#/Vol] 10.1 10*3/uL 3.6 - 10.7 10*3/uL [facility] CBC WITH AUTO DIFFERENTIALon 11-13-2024 Basophils (Bld) [#/Vol] 0.1 10*3/uL Normal 0.0-0.2 [facility] Comment on above: Performed By: #### L [id number] ####Conservation Coordinator: PHILLY FRANCO ([phone])[facility])[address] [place] [address] Basophils/100 WBC (Bld) 1.3 % Normal 0.0-2.0 [facility] Comment on above: Performed By: #### L [id number] ####Conservation Coordinator: PHILLY FRANCO ([phone])[facility])[address] [place] [address] Eosinophils (Bld) [#/Vol] 0.7 10*3/uL High 0.0-0.5 [facility] Comment on above: Performed By: #### L [id number] ####Conservation Coordinator: PHILLY FRANCO ([phone])[facility] ([facility])[address] [place] [address] [place] Eosinophils/100 WBC (Bld) 7.3 % High 0.0-6.0 [facility] Comment on above: Performed By: #### L [id number] ####Conservation Coordinator: PHILLY FRANCO ([phone])[facility])[address] [place] [address] [place] Erythrocyte distribution width (RBC) [Ratio] 17.0 % High 11.5-15.0 [facility] Comment on above: Performed By: #### L [id number] ####Conservation Coordinator: PHILLY FRANCO ([phone])[address] Hematocrit (Bld) [Volume fraction] 22.7 % Low 35.0-47.0 [facility] Comment on above: Performed By: #### L [id number] ####Conservation Coordinator: PHILLY FRANCO ([phone])[facility])[address] [place] [address] Hemoglobin (Bld) [Mass/Vol] 7.1 g/dL Low 11.7-16.0 [facility] Comment on above: Performed By: #### L [id number] ####Conservation Coordinator: PHILLY FRANCO ([phone])[address] IMMATURE GRANS % 1.1 % Normal 0.0-2.0 [facility] Comment on above: Performed By: #### L [id number] ####Conservation Coordinator: PHILLY FRANCO ([phone])[address] IMMATURE GRANS ABSOLUTE 0.1 10*3/uL High <0.1 [facility] Comment on above: Performed By: #### L [id number] ####Conservation Coordinator: PHILLY FRANCO ([phone])[facility])[address] [place] [address] Lymphocytes (Bld) [#/Vol] 1.9 10*3/uL Normal 1.0-4.3 [facility] Comment on above: Performed By: #### L [id number] ####Conservation Coordinator: PHILLY FRANCO ([phone])[address] Lymphocytes/100 WBC (Bld) 19.1 % Normal 15.0-45.0 [facility] Comment on above: Performed By: #### L [id number] ####Conservation Coordinator: PHILLY [phone])[facility] ([facility])[address] [place] [address] MCH (RBC) [Entitic mass] 28.7 pg Normal 26.0-34.0 [facility] Comment on above: Performed By: #### L [id number] ####Conservation Coordinator: PHILLY FRANCO ([phone])[facility])[address] [place] [address] MCHC 31.3 % Normal 30.5-36.[address] [facility] Comment on above: Performed By: #### L [id number] ####Conservation Coordinator: PHILLY FRANCO ([phone])[facility])[address] [place] [address] MCV (RBC) [Entitic vol] 91.9 fL Normal 77.0-99.0 [facility] Comment on above: Performed By: #### L [id number] ####Conservation Coordinator: PHILLY FRANCO ([phone])[facility] ([facility])[address] [place] [address] Monocytes (Bld) [#/Vol] 0.9 10*3/uL Normal 0.0-0.9 [facility] Comment on above: Performed By: #### L [id number] ####Conservation Coordinator: PHILLY FRANCO ([phone])[facility])[address] [place] [address] Monocytes/100 WBC (Bld) 8.7 % Normal 5.0-13.0 [facility] Comment on above: Performed By: #### L [id number] ####Conservation Coordinator: PHILLY FRANCO ([phone])[facility])[address] [place] [address] NEUTROPHILS ABSOLUTE 6.3 10*3/uL Normal 1.8-7.5 [facility] Comment on above: Performed By: #### L [id number] ####Conservation Coordinator: PHILLY FRANCO ([phone])[facility])[address] [place] [address] Neutrophils/100 WBC (Bld) 62.5 % Normal 38.0-82.0 [facility] Comment on above: Performed By: #### L [id number] ####Conservation Coordinator: PHILLY FRANCO ([phone])[facility] ([facility])[address] [place] [address] NRBC 0.0 /100 WBCs Normal 0.0-2.0 [facility] Comment on above: Performed By: #### L [id number] ####Conservation Coordinator: PHILLY FRANCO ([phone])[facility] ([facility])[address] [place] [address] Platelet mean volume (Bld) [Entitic vol] 10.3 fL Normal 9.0-12.7 [facility] Comment on above: Performed By: #### L [id number] ####Conservation Coordinator: PHILLY FRANCO ([phone])[facility] ([facility])[address] [place] [address] Platelets (Bld) [#/Vol] 495 10*3/uL High 140-440 [facility] Comment on above: Performed By: #### L [id number] ####Conservation Coordinator: PHILLY FRANCO ([phone])[facility])[address] [place] [address] RBC (Bld) [#/Vol] 2.47 10*6/uL Low 3.80-5.20 [facility] Comment on above: Performed By: #### L [id number] ####Conservation Coordinator: PHILLY FRANCO ([phone])[facility] ([facility])[address] [place] [address] WBC (Bld) [#/Vol] 10.1 10*3/uL Normal 3.6-10.7 [facility] Comment on above: Performed By: #### L [id number] ####Conservation Coordinator: PHILLY FRANCO ([phone])[facility] ([facility])[address] [place] [address] [place] Consulton 11-13-2024 Consult Normal [facility] HEMOGLOBIN AND HEMATOCRIT, B LOODon 11-13-2024 Hematocrit (Bld) [Volume fraction] 23.2 % Low 35.0-47.[address] [facility] Comment on above: Performed By: #### L [id number] ####Conservation Coordinator: PHILLY FRANCO ([phone])[facility] ([facility])[address] [place] [address] Hemoglobin (Bld) [Mass/Vol] 7.2 g/dL Low 11.7-16.[address] [facility] Comment on above: Performed By: #### L [id number] ####Conservation Coordinator: PHILLY FRANCO ([phone])[facility] ([facility])[address] [place] [address] Hemoglobin (Bld) [Mass/Vol]o n 11-13-2024 Hematocrit (Bld) [Volume fraction] 23.2 % Low 35.0 - 47.0 % [facility] Interpretation and review of laboratory results Abnormal [facility] Laboratory - Chemistry and C hemistry - challengeon 11-13-2024 Glucose [Mass/Vol] 81 mg/dL 70 - 100 mg/dL [facility] Glucose [Mass/Vol] 64 mg/dL Low 70 - 100 mg/dL [facility] Laboratory - Hematology and Cell countson 11-13-2024 Hemoglobin (Bld) [Mass/Vol] 7.2 g/dL Low 11.7 - 16.0 g/dL [facility] No Panel Informationon 11-13 Interpretation and review of laboratory results Normal [facility] Performed by: [address] [address] CLIA ID: [id number] [facility] Interpretation and review of laboratory results Abnormal [facility] Performed by: [address] [address] CLIA ID: [id number] [facility] Progress Noteon 11-13-2024 Progress Note Normal [facility] Progress Note Normal [facility] BASIC METABOLIC PANELon 11-03 Anion gap [Moles/Vol] 12 mmol/L Normal 3-13 [facility] Comment on above: Performed By: #### L [id number] ####Conservation Coordinator: DEANN CURRAN ([phone])[facility] ([facility])[address] Calcium [Mass/Vol] 8.1 mg/dL Low 8.8-10.[address] [facility] Comment on above: Performed By: #### L [id number] ####Conservation Coordinator: DEANN CRURAN ([phone])[facility] [place] ([facility])[address] Chloride [Moles/Vol] 104 mmol/L Normal 98-107 [facility] Comment on above: Performed By: #### L AB15 ####Conservation Coordinator: DEANN CURRAN ([phone])[facility] [place] ([facility])[address] CO2 [Moles/Vol] 24 mmol/L Normal 23-[address] [facility] Comment on above: Performed By: #### L AB15 ####Conservation Coordinator: DEANN CURRAN ([phone])[facility] [place] ([facility])[address] Creatinine [Mass/Vol] 3.37 mg/dL High 0.57-1.11 [facility] Comment on above: Performed By: #### L AB15 ####Conservation Coordinator: DEANN CURRAN ([phone])[facility] [place] ([facility])[address] [place] [address] [place] GLOMERULAR FILTRATION RATE ML/MIN/1.73 SQ M.PREDICTED 13.8 mL/min/1.73m*2 Low >60.[address] [facility] Comment on above: Result Comment: Calc ulation based on the Chronic Kidney Disease Epidemiology Collaboration (CKD-EPI) equation refit without adjustment for race Performed By: #### L AB15 ####Conservation Coordinator: DEANN CURRAN ([phone])[facility] [place] ([facility])[address] [place] [address] [place] Glucose [Mass/Vol] 78 mg/dL Low 82-[address] [facility] Comment on above: Performed By: #### L AB15 ####Conservation Coordinator: DEANN FERNANDESRYLEE ([phone])[facility] [place] ([facility])[address] Potassium [Moles/Vol] 4.0 mmol/L Normal 3.5-5.1 [facility] Comment on above: Result Comment: [facility] potassium values may be up to 0.5 mmol/L lower than serum values. Performed By: #### L AB15 ####Conservation Coordinator: DEANN CURRAN ([phone])[facility] ([facility])[address] Sodium [Moles/Vol] 140 mmol/L Normal 136-[address] [facility] Comment on above: Performed By: #### L AB15 ####Conservation Coordinator: DEANN LICEACER ([phone])[facility] ([facility])[address] [place] [address] Urea nitrogen [Mass/Vol] 15 mg/dL Normal 9-[address] [facility] Comment on above: Performed By: #### L AB15 ####Conservation Coordinator: DEANN NUNEZGABRIEL ([phone])[facility] ([facility])[address] [place] [address] Basic metabolic 1998 panelon 11-12-2024 Anion gap [Moles/Vol] 12 mmol/L 3 - 13 mmol/L [facility] Calcium [Mass/Vol] 8.1 mg/dL Low 8.8 - 10. 0 mg/dL [facility] Chloride [Moles/Vol] 104 mmol/L 98 - 10 7 mmol/L [facility] CO2 [Moles/Vol] 24 mmol/L 23 - 31 mmol/L [facility] Creatinine [Mass/Vol] 3.37 mg/dL High 0.57 - 1.11 mg/dL [facility] GFR/1.73 sq M.predicted (S/P/Bld) [Vol rate/Area] 13.8 mL/min Low - PINF [facility] Comment on above: Calculation based on the Chronic Kidney Disease Epidemiology Collaboration (CKD-EPI) equation refit without adjustment for race Glucose [Mass/Vol] 78 mg/dL Low 82 - 115 mg/dL [facility] Interpretation and review of laboratory results Abnormal [facility] Potassium [Moles/Vol] 4 mmol/L 3.5 - 5.1 mmol/L [facility] Comment on above: Plasma potassium bhaskar ues may be up to 0.5 mmol/L lower than serum values. Sodium [Moles/Vol] 140 mmol/L 136 - 145 mmol/L [facility] Urea nitrogen [Mass/Vol] 15 mg/dL 9 - 23 mg/dL [facility] CBC W Auto Differential pane l (Bld)Ordered By: Mona Huston on 11-12-2024 Erythrocyte distribution width (RBC) [Ratio] 17 % High 11.5 - 15.0 % [facility] Hematocrit (Bld) [Volume fraction] 29 % Low 35.0 - 47.0 % [facility] Hemoglobin (Bld) [Mass/Vol] 9.3 g/dL Low 11.7 - 16.0 g/dL [facility] IPF 4 [facility] MCH (RBC) [Entitic mass] 29.2 pg 26.0 - 34.0 pg [facility] MCHC (RBC) [Mass/Vol] 32.1 % 30.5 - 36.0 % [facility] MCV (RBC) [Entitic vol] 91.2 fL 77.0 - 99.0 fL [facility] Platelet mean volume (Bld) [Entitic vol] 10.5 fL 9.0 - 12.7 fL [facility] Platelets (Bld) [#/Vol] 407 10*3/uL 140 - 440 10*3/uL [facility] RBC (Bld) [#/Vol] 3.18 10*6/uL Low 3.80 - 5.2 0 10*6/uL [facility] WBC (Bld) [#/Vol] 10.9 10*3/uL High 3.6 - 10.7 10*3/uL [facility] CBC WITH AUTO DIFFERENTIALon 11-12-2024 Erythrocyte distribution width (RBC) [Ratio] 17.0 % High 11.5-15.0 [facility] Comment on above: Performed By: #### L [id number], [id number] ####Conservation Coordinator: DEANN CURRAN ([phone])[facility] ([facility])[address] Hematocrit (Bld) [Volume fraction] 29.0 % Low 35.0-47.0 [facility] Comment on above: Performed By: #### L [id number], [id number] ####Conservation Coordinator: DEANN CURRAN ([phone])[facility]ITAL[facility] [place] ([facility])[address] Hemoglobin (Bld) [Mass/Vol] 9.3 g/dL Low 11.7-16.[address] [facility] Comment on above: Performed By: #### L [id number], [id number] ####Conservation Coordinator: DEANN CURRAN ([phone])[facility] [place] ([facility])[address] IPF [address] [facility] Comment on above: Performed By: #### L [id number], [id number] ####Conservation Coordinator: DEANN CURRAN ([phone])[facility] [place] ([facility])[address] MCH (RBC) [Entitic mass] 29.2 pg Normal 26.0-34.0 [facility] Comment on above: Performed By: #### L [id number], [id number] ####Conservation Coordinator: DEANN CURRAN ([phone])[facility]ITALJoann [facility] ([facility])[address] [place] [address] MCHC 32.1 % Normal 30.5-36.0 [facility] Comment on above: Performed By: #### L [id number], [id number] ####Conservation Coordinator: DEANN CURRAN ([phone])[facility] [place] ([facility])[address] MCV (RBC) [Entitic vol] 91.2 fL Normal 77.0-99.0 [facility] Comment on above: Performed By: #### L [id number], [id number] ####Conservation Coordinator: DEANN CURRAN ([phone])[facility] [place] ([facility])[address] Platelet mean volume (Bld) [Entitic vol] 10.5 fL Normal 9.0-12.[address] [facility] Comment on above: Performed By: #### L [id number], [id number] ####Conservation Coordinator: DEANN CURRAN ([phone])[place] ([facility])[address] Platelets (Bld) [#/Vol] 407 10*3/uL Normal 140-[address] [facility] Comment on above: Performed By: #### L [id number], [id number] ####Conservation Coordinator: DEANN CURRAN ([phone])[facility] [place] ([facility])[address] RBC (Bld) [#/Vol] 3.18 10*6/uL Low 3.80-5.[address] [facility] Comment on above: Performed By: #### L [id number], [id number] ####Conservation Coordinator: DEANN CURRAN ([phone])[facility]ITAL[facility] FERNANDESN ([facility])[address] WBC (Bld) [#/Vol] 10.9 10*3/uL High 3.6-10.[address] [facility] Comment on above: Performed By: #### L [id number], [id number] ####Conservation Coordinator: DEANN CURRAN ([phone])[facility] FERNANDESN ([facility])[address] Consulton 11-12-[address] [facility] ED Nursing Noteon 11-12-2024 ED Nursing Note Moody Harman at bedside for transport to [facility] for admission. Packet/blue card sent with crew. Normal [facility] ED Nursing Note Report called to Fawad rouse RN [facility]. Pt awaiting transport, resting comfortably at this time, side rails up x2, curtain remains open for safety. Normal [facility] ED Provider Noteon ED Provider Note Normal [facility] MANUAL DIFFERENTIALon 2024 ANISOCYTOSIS PRESENCE IN BLOOD BY LIGHT MICROSCOPY Moderate Abnormal (none) [facility] Comment on above: Performed By: #### L [id number], [id number] ####Conservation Coordinator: DEANN CURRAN ([phone])[facility] ([facility])[address] [place] [address] [place] BASOPHILS (10*3/UL) IN BLOOD BY MANUAL COUNT 0.1 10*3/uL Normal 0.0-0.[address] [facility] Comment on above: Performed By: #### L [id number], [id number] ####Conservation Coordinator: DEANN CURRAN ([phone])[facility] ([facility])[address] BASOPHILS TOTAL PER COUNTED LEUKOCYTES BY MANUAL COUNT [address] [facility] Comment on above: Performed By: #### L [id number], [id number] ####Conservation Coordinator: DEANN CURRAN ([phone])[facility] ([facility])[address] [place] [address] [place] BASOPHILS/100 LEUKOCYTES IN BLOOD BY MANUAL COUNT 1 % Normal 0-[address] [facility] Comment on above: Performed By: #### L [id number], [id number] ####Conservation Coordinator: DEANN CURRAN ([phone])[facility] ([facility])[address] LUIS FELIPE CELLS PRESENCE IN BLOOD BY LIGHT MICROSCOPY Rare Abnormal (none) [facility] Comment on above: Performed By: #### L [id number], [id number] ####Conservation Coordinator: DEANN CURRAN ([phone])[facility] ([facility])[address] [place] [address] [place] CELLS COUNTED TOTAL (#) IN BLOOD [address] [facility] Comment on above: Performed By: #### L [id number], [id number] ####Conservation Coordinator: DEANN CURRAN ([phone])[facility] [place] ([facility])[address] [place] [address] [place] DIFFERENTIAL METHOD Manual differential performed Normal [facility] Comment on above: Performed By: #### L [id number], [id number] ####Conservation Coordinator: DEANN CURRAN ([phone])[facility] [place] ([facility])[address] [place] [address] [place] EOSINOPHILS (10*3/UL) IN BLOOD BY MANUAL COUNT 0.3 10*3/uL Normal 0.0-0.[address] [facility] Comment on above: Performed By: #### L [id number], [id number] ####Conservation Coordinator: DEANN CURRAN ([phone])[facility] [place] ([facility])[address] [place] [address] [place] EOSINOPHILS TOTAL PER COUNTED LEUKOCYTES BY MANUAL COUNT 3 High 0-[address] [facility] Comment on above: Performed By: #### L [id number], [id number] ####Conservation Coordinator: DEANN CURRAN ([phone])[facility] [place] ([facility])[address], [place] [address] [place] EOSINOPHILS/100 LEUKOCYTES IN BLOOD BY MANUAL COUNT 3 % Normal 0-6 [facility] Comment on above: Performed By: #### L [id number], [id number] ####Conservation Coordinator: DEANN CURRAN ([phone])[facility] [place] ([facility])[address] [place] [address] [place] LEUKOCYTE MORPHOLOGY FINDING IN BLOOD Normal Normal [facility] Comment on above: Performed By: #### L [id number], [id number] ####Conservation Coordinator: DEANN CURRAN ([phone])[facility] [place] ([facility])[address] [place] [address] [place] LEUKOCYTES (10*3/UL) NUCLEATED ERYTHROCYTE ADJUST 10.9 10*3/uL High 3.6-10.7 [facility] Comment on above: Performed By: #### L [id number], [id number] ####Conservation Coordinator: DEANN CURRAN ([phone])[facility] [place] ([facility])[address] [place] [address] [place] LYMPHOCYTES (10*3/UL) IN BLOOD BY MANUAL COUNT 1.3 10*3/uL Normal 1.0-4.[address] [facility] Comment on above: Performed By: #### L [id number], [id number] ####Conservation Coordinator: DEANN FERNANDESRYLEE ([phone])[facility] [place] ([facility])[address] [place] [address] [place] LYMPHOCYTES TOTAL PER COUNTED LEUKOCYTES BY MANUAL COUNT [address] [facility] Comment on above: Performed By: #### L [id number], [id number] ####Conservation Coordinator: DEANN CURRAN ([phone])[facility] [place] ([facility])[address] [place] [address] [place] LYMPHOCYTES/100 LEUKOCYTES IN BLOOD BY MANUAL COUNT 12 % Low 15-45 [facility] Comment on above: Performed By: #### L [id number], [id number] ####Conservation Coordinator: DEANN FERNANDESRYLEE ([phone])[facility] [place] ([facility])[address] [place] [address] [place] MONOCYTES (10*3/UL) IN BLOOD BY MANUAL COUNT 0.5 10*3/uL Normal 0.0-0.[address] [facility] Comment on above: Performed By: #### L [id number], [id number] ####Conservation Coordinator: DEANN CURRAN ([phone])[facility] [place] ([facility])[address] [place] [address] [place] MONOCYTES TOTAL PER COUNTED LEUKOCYTES BY MANUAL COUNT [address] [facility] Comment on above: Performed By: #### L [id number], [id number] ####Conservation Coordinator: DEANN FERNANDESRYLEE ([phone])[facility] [place] ([facility])[address] [place] [address] [place] MONOCYTES/100 LEUKOCYTES IN BLOOD BY MANUAL COUNT 5 % Normal 5-13 [facility] Comment on above: Performed By: #### L [id number], [id number] ####Conservation Coordinator: DEANN FERNANDESRYLEE ([phone])[facility] [place] ([facility])[address] [place] [address] [place] NEUTROPHILS (SEGS+BANDS) (10*3/UL) BY MANUAL COUNT 8.6 10*3/uL High 1.8-7.[address] [facility] Comment on above: Performed By: #### L [id number], [id number] ####Conservation Coordinator: DEANN CURRAN ([phone])[facility] [place] ([facility])[address] NEUTROPHILS TOTAL PER COUNTED LEUKOCYTES BY MANUAL COUNT [address] [facility] Comment on above: Performed By: #### L [id number], [id number] ####Conservation Coordinator: DEANN CURRAN ([phone])[facility] [place] ([facility])[address] OVALOCYTES PRESENCE IN BLOOD BY LIGHT MICROSCOPY Slight Abnormal (none) [facility] Comment on above: Performed By: #### L [id number], [id number] ####Conservation Coordinator: DEANN CURRAN ([phone])[facility] ([facility])[address] PLATELET MORPHOLOGY IN BLOOD Normal Normal [facility] Comment on above: Performed By: #### L [id number], [id number] ####Conservation Coordinator: DEANN CURRAN ([phone])[facility] [place] ([facility])[address] POIKILOCYTOSIS (PRESENCE) IN BLOOD BY LIGHT MICROSCOPY Slight Abnormal (none) [facility] Comment on above: Performed By: #### L [id number], [id number] ####Conservation Coordinator: DEANN CURRAN ([phone])[facility] [place] ([facility])[address] SEGEMENTED NEUTROPHILS/100 LEUKOCYTES BY MANUAL COUNT 79 % Normal 38-[address] [facility] Comment on above: Performed By: #### L [id number], [id number] ####Conservation Coordinator: DEANN CURRAN ([phone])[facility] [place] ([facility])[address] Manual differential performe d Ql (Bld)on 11-12-2024 Anisocytosis Ql (Bld) Moderate Abnormal (none) [facility] Basophils (Bld) [#/Vol] 0.1 10*3/uL 0.0 - 0.2 10*3/uL [facility] Basophils Manual 1 [facility] Basophils/100 WBC (Bld) 1 % 0 - 2 % S [facility] [place] cells LM Ql (Bld) Rare Abnormal (none) [facility] Cells Counted Total (Bld) [#] 100 {cells} [facility] Differential Method Manual differential performed [facility] Eosinophils (Bld) [#/Vol] 0.3 10*3/uL 0.0 - 0.5 10*3/uL [facility] Eosinophils Manual 3 High 0 - 1 [facility] Eosinophils/100 WBC (Bld) 3 % 0 - 6 % [facility] Leukocyte morphology finding Nom (Bld) Normal [facility] Lymphocytes (Bld) [#/Vol] 1.3 10*3/uL 1.0 - 4.3 10*3/uL [facility] Lymphocytes Manual 12 [facility] Lymphocytes/100 WBC (Bld) 12 % Low 15 - 45 % [facility] Monocytes (Bld) [#/Vol] 0.5 10*3/uL 0.0 - 0.9 10*3/uL [facility] Monocytes Manual 5 [facility] Monocytes/100 WBC (Bld) 5 % 5 - 13 % S [facility] Neutrophils (Bld) [#/Vol] 8.6 10*3/uL High 1.8 - 7.0 10*3/uL [facility] Neutrophils Manual 79 [facility] Ovalocytes LM Ql (Bld) Slight Abnormal (none) [facility] Platelet morphology finding Nom (Bld) Normal [facility] Poikilocytosis LM Ql (Bld) Slight Abnormal (none) [facility] Segmented neutrophils/100 WBC (Bld) 79 % 38 - 82 % [facility] WBC corrected for nucl RBC (Bld) [#/Vol] 10.9 10*3/uL High 3.6 - 10.7 10*3/uL [facility] No Panel InformationOrdered By: Mona Huston on 11-12-2024 Interpretation and review of laboratory results Abnormal [facility] [id number] 11-11-[id number] [facility] [id number] Mcc/SNF - Return [place] [address] [id number] [id number] Patient/Family Choice Normal [facility] [id number] Normal [facility] BASIC METABOLIC PANELon Anion gap [Moles/Vol] 9 mmol/L Normal 3-13 [facility] Comment on above: Performed By: #### L [id number] ####Conservation Coordinator: PHILLY FRANCO ([phone])[facility] ([facility])[address] [place] [address] Calcium [Mass/Vol] 7.3 mg/dL Low 8.8-10.[address] [facility] Comment on above: Performed By: #### L [id number] ####Conservation Coordinator: PHILLY FRANCO ([phone])[facility] ([facility])[address] [place] [address] Chloride [Moles/Vol] 105 mmol/L Normal 98-107 [facility] Comment on above: Performed By: #### L [id number] ####Conservation Coordinator: PHILLY FRANCO ([phone])[facility] ([facility])[address] [place] [address] [place] CO2 [Moles/Vol] 24 mmol/L Normal 23-[address] [facility] Comment on above: Performed By: #### L [id number] ####Conservation Coordinator: PHILLY FRANCO ([phone])[facility] ([facility])[address] [place] [address] Creatinine [Mass/Vol] 4.23 mg/dL High 0.57-1.11 [facility] Comment on above: Performed By: #### L [id number] ####Conservation Coordinator: PHILLY FRANCO ([phone])[facility] ([facility])[address] [place] [address] [place] GLOMERULAR FILTRATION RATE ML/MIN/1.73 SQ M.PREDICTED 10.5 mL/min/1.73m*2 Low >60.[address] [facility] Comment on above: Result Comment: Calc ulation based on the Chronic Kidney Disease Epidemiology Collaboration (CKD-EPI) equation refit without adjustment for race Performed By: #### L [id number] ####Conservation Coordinator: PHILLY FRANCO ([phone])[facility] [place] [address] Glucose [Mass/Vol] 67 mg/dL Low 82-[address] [facility] Comment on above: Performed By: #### L [id number] ####Conservation Coordinator: PHILLY FRANCO ([phone])[facility] ([facility])[address] [place] [address] Potassium [Moles/Vol] 4.5 mmol/L Normal 3.5-5.1 [facility] Comment on above: Result Comment: [facility] potassium values may be up to 0.5 mmol/L lower than serum values. Performed By: #### L [id number] ####Conservation Coordinator: PHILLY FRANCO ([phone])[facility] ([facility])[address] [place] [address] Sodium [Moles/Vol] 138 mmol/L Normal 136-[address] [facility] Comment on above: Performed By: #### L [id number] ####Conservation Coordinator: PHILLY FRANCO ([phone])[facility] ([facility])[address] [place] [address] Urea nitrogen [Mass/Vol] 26 mg/dL High 9-[address] [facility] Comment on above: Performed By: #### L [id number] ####Conservation Coordinator: PHILLY FRANCO ([phone])[facility] ([facility])[address] [place] [address] BLOOD TYPE AND SCREEN GELon 11-11-2024 ABO GROUPING O [facility] Comment on above: Performed By: #### L [id number] ####Conservation Coordinator: PHILLY FRANCO ([phone])[facility] BLOOD BANK ([facility])[address] [place] [address] RH TYPE IN BLOOD Positive Normal [facility] Comment on above: Performed By: #### L [id number] ####Conservation Coordinator: PHILLY FRANCO ([phone])[facility] B[facility]OD [facility] ([facility])[address] [place] [address] Basic metabolic 1998 panelon 11-11-2024 Anion gap [Moles/Vol] 9 mmol/L 3 - 13 mmol/L [facility] Calcium [Mass/Vol] 7.3 mg/dL Low 8.8 - 10. 0 mg/dL [facility] Chloride [Moles/Vol] 105 mmol/L 98 - 10 7 mmol/L [facility] CO2 [Moles/Vol] 24 mmol/L 23 - 31 mmol/L [facility] Creatinine [Mass/Vol] 4.23 mg/dL High 0.57 - 1.11 mg/dL [facility] GFR/1.73 sq M.predicted (S/P/Bld) [Vol rate/Area] 10.5 mL/min Low - PINF [facility] Glucose [Mass/Vol] 67 mg/dL Low 82 - 115 mg/dL [facility] Interpretation and review of laboratory results Abnormal [facility] Potassium [Moles/Vol] 4.5 mmol/L 3.5 - 5.1 mmol/L [facility] Sodium [Moles/Vol] 138 mmol/L 136 - 145 mmol/L [facility] Urea nitrogen [Mass/Vol] 26 mg/dL High 9 - 23 mg/dL [facility] Blood type and Crossmatch pa kojo (Bld)on 11-11-2024 ABO group Nom (Bld) O [facility] Blood group antibody screen GEL Ql Negative [facility] D Ag Ql (RBC) Positive [facility] CBC W Auto Differential pane l (Bld)on 11-11-2024 Basophils (Bld) [#/Vol] 0.1 10*3/uL 0.0 - 0.2 10*3/uL [facility] Basophils/100 WBC (Bld) 1 % 0.0 - 2.0 % [facility] Eosinophils (Bld) [#/Vol] 0.4 10*3/uL 0.0 - 0.5 10*3/uL [facility] Eosinophils/100 WBC (Bld) 3.1 % 0.0 - 6.0 % [facility] Erythrocyte distribution width (RBC) [Ratio] 17.1 % High 11.5 - 15.0 % [facility] Hematocrit (Bld) [Volume fraction] 21.8 % Low 35.0 - 47.0 % [facility] Hemoglobin (Bld) [Mass/Vol] 7 g/dL Low 11.7 - 16.0 g/dL [facility] [employer] Immature granulocytes (Bld) [#/Vol] 0.1 10*3/uL High NINF - 0.1 10*3/uL [facility] Immature granulocytes/100 WBC (Bld) 1.1 % 0.0 - 2.0 % [facility] Interpretation and review of laboratory results Abnormal [facility] Lymphocytes (Bld) [#/Vol] 1.8 10*3/uL 1.0 - 4.3 10*3/uL [facility] Lymphocytes/100 WBC (Bld) 14.3 % Low 15.0 - 45.0 % [facility] MCH (RBC) [Entitic mass] 29.3 pg 26.0 - 34.0 pg [facility] MCHC (RBC) [Mass/Vol] 32.1 % 30.5 - 36.0 % [facility] MCV (RBC) [Entitic vol] 91.2 fL 77.0 - 99.0 fL [facility] Monocytes (Bld) [#/Vol] 0.9 10*3/uL 0.0 - 0.9 10*3/uL [facility] Monocytes/100 WBC (Bld) 7.1 % 5.0 - 13.0 % [facility] Neutrophils (Bld) [#/Vol] 9.3 10*3/uL High 1.8 - 7.5 10*3/uL [facility] Neutrophils/100 WBC (Bld) 73.4 % 38.0 - 82.0 % [facility] Nucleated RBC/100 WBC (Bld) [Ratio] 0 % [facility] Platelet mean volume (Bld) [Entitic vol] 10.4 fL 9.0 - 12.7 fL [facility] Platelets (Bld) [#/Vol] 480 10*3/uL High 140 - 440 10*3/uL [facility] RBC (Bld) [#/Vol] 2.39 10*6/uL Low 3.80 - 5.2 0 10*6/uL [facility] WBC (Bld) [#/Vol] 12.6 10*3/uL High 3.6 - 10.7 10*3/uL [facility] CBC WITH AUTO DIFFERENTIALon 11-11-2024 Basophils (Bld) [#/Vol] 0.1 10*3/uL Normal 0.0-0.2 [facility] Comment on above: Performed By: #### L [id number] ####Conservation Coordinator: PHILLY FRANCO ([phone])[facility])[address] [place] [address] Basophils/100 WBC (Bld) 1.0 % Normal 0.0-2.0 [facility] Comment on above: Performed By: #### L [id number] ####Conservation Coordinator: PHILLY FRANCO ([phone])[facility])[address] [place] [address] Eosinophils (Bld) [#/Vol] 0.4 10*3/uL Normal 0.0-0.5 [facility] Comment on above: Performed By: #### L [id number] ####Conservation Coordinator: PHILLY FRANCO ([phone])[facility])[address] [place] [address] Eosinophils/100 WBC (Bld) 3.1 % Normal 0.0-6.0 [facility] Comment on above: Performed By: #### L [id number] ####Conservation Coordinator: PHILLY FRANCO ([phone])[facility])[address] [place] [address] Erythrocyte distribution width (RBC) [Ratio] 17.1 % High 11.5-15.0 [facility] Comment on above: Performed By: #### L [id number] ####Conservation Coordinator: PHILLY FRANCO ([phone])[facility])[address] [place] [address] Hematocrit (Bld) [Volume fraction] 21.8 % Low 35.0-47.0 [facility] Comment on above: Performed By: #### L [id number] ####Conservation Coordinator: PHILLY FRANCO ([phone])[facility])[address] [place] [address] Hemoglobin (Bld) [Mass/Vol] 7.0 g/dL Low 11.7-16.0 [facility] Comment on above: Performed By: #### L [id number] ####Conservation Coordinator: PHILLY FRANCO ([phone])[facility])[address] [place] [address] IMMATURE GRANS % 1.1 % Normal 0.0-2.0 [facility] Comment on above: Performed By: #### L [id number] ####Conservation Coordinator: PHILLY FRANCO ([phone])[facility])[address] [place] [address] IMMATURE GRANS ABSOLUTE 0.1 10*3/uL High <0.1 [facility] Comment on above: Performed By: #### L [id number] ####Conservation Coordinator: PHILLY FRANCO ([phone])[facility])[address] [place] [address] Lymphocytes (Bld) [#/Vol] 1.8 10*3/uL Normal 1.0-4.3 [facility] Comment on above: Performed By: #### L [id number] ####Conservation Coordinator: PHILLY FRANCO ([phone])[facility])[address] [place] [address] Lymphocytes/100 WBC (Bld) 14.3 % Low 15.0-45.0 [facility] Comment on above: Performed By: #### L [id number] ####Conservation Coordinator: PHILLY FRANCO ([phone])[facility])[address] [place] [address] MCH (RBC) [Entitic mass] 29.3 pg Normal 26.0-34.0 [facility] Comment on above: Performed By: #### L [id number] ####Conservation Coordinator: PHILLY FRANCO ([phone])[facility])[address] [place] [address] MCHC 32.1 % Normal 30.5-36.0 [facility] Comment on above: Performed By: #### L [id number] ####Conservation Coordinator: PHILLY FRANCO ([phone])[facility])[address] [place] [address] MCV (RBC) [Entitic vol] 91.2 fL Normal 77.0-99.0 [facility] Comment on above: Performed By: #### L [id number] ####Conservation Coordinator: PHILLY FRANCO ([phone])[facility] ([facility])[address] [place] [address] Monocytes (Bld) [#/Vol] 0.9 10*3/uL Normal 0.0-0.9 [facility] Comment on above: Performed By: #### L [id number] ####Conservation Coordinator: PHILLY FRANCO ([phone])[facility] ([facility])[address] [place] [address] Monocytes/100 WBC (Bld) 7.1 % Normal 5.0-13.0 [facility] Comment on above: Performed By: #### L [id number] ####Conservation Coordinator: PHILLY FRANCO ([phone])[facility] ([facility])[address] [place] [address] NEUTROPHILS ABSOLUTE 9.3 10*3/uL High 1.8-7.5 [facility] Comment on above: Performed By: #### L [id number] ####Conservation Coordinator: PHILLY FRANCO ([phone])[facility] ([facility])[address] [place] [address] Neutrophils/100 WBC (Bld) 73.4 % Normal 38.0-82.0 [facility] Comment on above: Performed By: #### L [id number] ####Conservation Coordinator: PHILLY FRANCO ([phone])[facility] ([facility])[address] [place] [address] NRBC 0.0 /100 WBCs Normal 0.0-2.0 [facility] Comment on above: Performed By: #### L [id number] ####Conservation Coordinator: PHILLY FRANCO ([phone])[facility] ([facility])[address] [place] [address] Platelet mean volume (Bld) [Entitic vol] 10.4 fL Normal 9.0-12.[address] [facility] Comment on above: Performed By: #### L [id number] ####Conservation Coordinator: PHILLY FRANCO ([phone])[facility])[address] [place] [address] Platelets (Bld) [#/Vol] 480 10*3/uL High 140-[address] [facility] Comment on above: Performed By: #### L [id number] ####Conservation Coordinator: PHILLY FRANCO ([phone])[facility] ([facility])[address] [place] [address] RBC (Bld) [#/Vol] 2.39 10*6/uL Low 3.80-5.[address] [facility] Comment on above: Performed By: #### L [id number] ####Conservation Coordinator: PHILLY FRANCO ([phone])[facility] ([facility])[address] [place] [address] WBC (Bld) [#/Vol] 12.6 10*3/uL High 3.6-10.[address] [facility] Comment on above: Performed By: #### L [id number] ####Conservation Coordinator: PHILLY FRANCO ([phone])[facility])[address] [place] [address] Nursing Noteon 11-11-2024 Nursing Note [facility] cot Normal [facility] Nursing Note Called [facility] to [facility]. Pt brother at bedside aware of dc. Normal [facility] Nursing Note Normal [facility] Progress Noteon 11-11-2024 Progress Note Normal [facility] Progress Note Normal [facility] BASIC METABOLIC PANELon Anion gap [Moles/Vol] 5 mmol/L Normal 3-13 [facility] Comment on above: Performed By: #### L [id number] ####Conservation Coordinator: PHILLY FRANCO ([phone])[facility])[address] [place] [address] Calcium [Mass/Vol] 7.6 mg/dL Low 8.8-10.[address] [facility] Comment on above: Performed By: #### L [id number] ####Conservation Coordinator: PHILLY FRANCO ([phone])[facility])[address] [place] [address] Chloride [Moles/Vol] 103 mmol/L Normal 98-107 [facility] Comment on above: Performed By: #### L [id number] ####Conservation Coordinator: PHILLY FRANCO ([phone])[facility] ([facility])[address] [place] [address] CO2 [Moles/Vol] 26 mmol/L Normal 23-[address] [facility] Comment on above: Performed By: #### L [id number] ####Conservation Coordinator: PHILLY FRANCO ([phone])[facility])[address] [place] [address] Creatinine [Mass/Vol] 2.81 mg/dL High 0.57-1.11 [facility] Comment on above: Performed By: #### L [id number] ####Conservation Coordinator: PHILLY FRANCO ([phone])[facility] ([facility])[address] [place] [address] [place] GLOMERULAR FILTRATION RATE ML/MIN/1.73 SQ M.PREDICTED 17.1 mL/min/1.73m*2 Low >60.[address] [facility] Comment on above: Result Comment: Calc ulation based on the Chronic Kidney Disease Epidemiology Collaboration (CKD-EPI) equation refit without adjustment for race Performed By: #### L [id number] ####Conservation Coordinator: PHILLY FRANCO ([phone])[facility] ([facility])[address] [place] [address] [place] Glucose [Mass/Vol] 67 mg/dL Low 82-[address] [facility] Comment on above: Performed By: #### L [id number] ####Conservation Coordinator: PHILLY FRANCO ([phone])[facility])[address] [place] [address] [place] Potassium [Moles/Vol] 4.0 mmol/L Normal 3.5-5.1 [facility] Comment on above: Result Comment: [facility] potassium values may be up to 0.5 mmol/L lower than serum values. Performed By: #### L [id number] ####Conservation Coordinator: PHILLY FRANCO ([phone])[facility])[address] [place] [address] Sodium [Moles/Vol] 134 mmol/L Low 136-145 [facility] Comment on above: Performed By: #### L [id number] ####Conservation Coordinator: PHILLY FRANCO ([phone])[facility] ([facility])[address] [place] [address] Urea nitrogen [Mass/Vol] 16 mg/dL Normal 9-23 [facility] Comment on above: Performed By: #### L [id number] ####Conservation Coordinator: PHILLY FRANCO ([phone])[facility])[address] [place] [address] Basic metabolic 1998 panelon 11-10-2024 Anion gap [Moles/Vol] 5 mmol/L 3 - 13 mmol/L [facility] Calcium [Mass/Vol] 7.6 mg/dL Low 8.8 - 10. 0 mg/dL [facility] Chloride [Moles/Vol] 103 mmol/L 98 - 10 7 mmol/L [facility] CO2 [Moles/Vol] 26 mmol/L 23 - 31 mmol/L [facility] Creatinine [Mass/Vol] 2.81 mg/dL High 0.57 - 1.11 mg/dL [facility] GFR/1.73 sq M.predicted (S/P/Bld) [Vol rate/Area] 17.1 mL/min Low - PINF [facility] Glucose [Mass/Vol] 67 mg/dL Low 82 - 115 mg/dL [facility] Interpretation and review of laboratory results Abnormal [facility] Potassium [Moles/Vol] 4 mmol/L 3.5 - 5.1 mmol/L [facility] Sodium [Moles/Vol] 134 mmol/L Low 136 - 145 mmol/L [facility] Urea nitrogen [Mass/Vol] 16 mg/dL 9 - 23 mg/dL [facility] CBC W Auto Differential pane l (Bld)on 11-10-2024 Basophils (Bld) [#/Vol] 0.1 10*3/uL 0.0 - 0.2 10*3/uL [facility] Basophils/100 WBC (Bld) 1 % 0.0 - 2.0 % [facility] Eosinophils (Bld) [#/Vol] 0.4 10*3/uL 0.0 - 0.5 10*3/uL [facility] Eosinophils/100 WBC (Bld) 3.1 % 0.0 - 6.0 % [facility] Erythrocyte distribution width (RBC) [Ratio] 16.9 % High 11.5 - 15.0 % [facility] Hematocrit (Bld) [Volume fraction] 21.6 % Low 35.0 - 47.0 % [facility] Hemoglobin (Bld) [Mass/Vol] 7 g/dL Low 11.7 - 16.0 g/dL [facility] Immature granulocytes (Bld) [#/Vol] 0.2 10*3/uL High NINF - 0.1 10*3/uL [facility] Immature granulocytes/100 WBC (Bld) 1.1 % 0.0 - 2.0 % [facility] Interpretation and review of laboratory results Abnormal [facility] Lymphocytes (Bld) [#/Vol] 2 10*3/uL 1.0 - 4.3 10*3/uL [facility] Lymphocytes/100 WBC (Bld) 15.1 % 15.0 - 45.0 % [facility] MCH (RBC) [Entitic mass] 28.8 pg 26.0 - 34.0 pg [facility] MCHC (RBC) [Mass/Vol] 32.4 % 30.5 - 36.0 % [facility] MCV (RBC) [Entitic vol] 88.9 fL 77.0 - 99.0 fL [facility] Monocytes (Bld) [#/Vol] 1.1 10*3/uL High 0.0 - 0.9 10*3/uL [facility] Monocytes/100 WBC (Bld) 8.1 % 5.0 - 13.0 % [facility] Neutrophils (Bld) [#/Vol] 9.4 10*3/uL High 1.8 - 7.5 10*3/uL [facility] Neutrophils/100 WBC (Bld) 71.6 % 38.0 - 82.0 % [facility] Nucleated RBC/100 WBC (Bld) [Ratio] 0 % [facility] Platelet mean volume (Bld) [Entitic vol] 10.4 fL 9.0 - 12.7 fL [facility] Platelets (Bld) [#/Vol] 382 10*3/uL 140 - 440 10*3/uL [facility] RBC (Bld) [#/Vol] 2.43 10*6/uL Low 3.80 - 5.2 0 10*6/uL [facility] WBC (Bld) [#/Vol] 13.2 10*3/uL High 3.6 - 10.7 10*3/uL [facility] CBC WITH AUTO DIFFERENTIALon 11-10-2024 Basophils (Bld) [#/Vol] 0.1 10*3/uL Normal 0.0-0.2 [facility] Comment on above: Performed By: #### L [id number] ####Conservation Coordinator: PHILLY FRANCO ([phone])[facility])[address] [place] [address] Basophils/100 WBC (Bld) 1.0 % Normal 0.0-2.0 [facility] Comment on above: Performed By: #### L [id number] ####Conservation Coordinator: PHILLY FRANCO ([phone])[facility])[address] [place] [address] Eosinophils (Bld) [#/Vol] 0.4 10*3/uL Normal 0.0-0.5 [facility] Comment on above: Performed By: #### L [id number] ####Conservation Coordinator: PHILLY FRANCO ([phone])[facility])[address] [place] [address] Eosinophils/100 WBC (Bld) 3.1 % Normal 0.0-6.0 [facility] Comment on above: Performed By: #### L [id number] ####Conservation Coordinator: PHILLY FRANCO ([phone])[facility])[address] [place] [address] Erythrocyte distribution width (RBC) [Ratio] 16.9 % High 11.5-15.0 [facility] Comment on above: Performed By: #### L [id number] ####Conservation Coordinator: PHILLY FRANCO ([phone])[facility])[address] [place] [address] Hematocrit (Bld) [Volume fraction] 21.6 % Low 35.0-47.0 [facility] Comment on above: Performed By: #### L [id number] ####Conservation Coordinator: PHILLY FRANCO ([phone])[facility])[address] [place] [address] Hemoglobin (Bld) [Mass/Vol] 7.0 g/dL Low 11.7-16.0 [facility] Comment on above: Performed By: #### L [id number] ####Conservation Coordinator: PHILLY FRANCO ([phone])[facility])[address] [place] [address] IMMATURE GRANS % 1.1 % Normal 0.0-2.0 [facility] Comment on above: Performed By: #### L [id number] ####Conservation Coordinator: PHILLY FRANCO ([phone])[facility])[address] [place] [address] IMMATURE GRANS ABSOLUTE 0.2 10*3/uL High <0.1 [facility] Comment on above: Performed By: #### L [id number] ####Conservation Coordinator: PHILLY FRANCO ([phone])[address] Lymphocytes (Bld) [#/Vol] 2.0 10*3/uL Normal 1.0-4.3 [facility] Comment on above: Performed By: #### L [id number] ####Conservation Coordinator: PHILLY FRANCO ([phone])[facility])[address] [place] [address] Lymphocytes/100 WBC (Bld) 15.1 % Normal 15.0-45.0 [facility] Comment on above: Performed By: #### L [id number] ####Conservation Coordinator: PHILLY FRANCO ([phone])[facility])[address] [place] [address] MCH (RBC) [Entitic mass] 28.8 pg Normal 26.0-34.0 [facility] Comment on above: Performed By: #### L [id number] ####Conservation Coordinator: PHILLY FRANCO ([phone])[facility])[address] [place] [address] MCHC 32.4 % Normal 30.5-36.0 [facility] Comment on above: Performed By: #### L [id number] ####Conservation Coordinator: PHILLY FRANCO ([phone])[facility])[address] [place] [address] MCV (RBC) [Entitic vol] 88.9 fL Normal 77.0-99.0 [facility] Comment on above: Performed By: #### L [id number] ####Conservation Coordinator: PHILLY FRANCO ([phone])[facility])[address] [place] [address] Monocytes (Bld) [#/Vol] 1.1 10*3/uL High 0.0-0.9 [facility] Comment on above: Performed By: #### L [id number] ####Conservation Coordinator: PHILLY FRANCO ([phone])[facility])[address] [place] [address] Monocytes/100 WBC (Bld) 8.1 % Normal 5.0-13.0 [facility] Comment on above: Performed By: #### L [id number] ####Conservation Coordinator: PHILLY FRANCO ([phone])[facility])[address] [place] [address] NEUTROPHILS ABSOLUTE 9.4 10*3/uL High 1.8-7.5 [facility] Comment on above: Performed By: #### L [id number] ####Conservation Coordinator: PHILLY FRANCO ([phone])[facility])[address] [place] [address] Neutrophils/100 WBC (Bld) 71.6 % Normal 38.0-82.0 [facility] Comment on above: Performed By: #### L [id number] ####Conservation Coordinator: PHILLY FRANCO ([phone])[facility])[address] [place] [address] NRBC 0.0 /100 WBCs Normal 0.0-2.0 [facility] Comment on above: Performed By: #### L [id number] ####Conservation Coordinator: PHILLY FRANCO ([phone])[facility] ([facility])[address] [place] [address] Platelet mean volume (Bld) [Entitic vol] 10.4 fL Normal 9.0-12.7 [facility] Comment on above: Performed By: #### L [id number] ####Conservation Coordinator: PHILLY FRANCO ([phone])[facility])[address] [place] [address] Platelets (Bld) [#/Vol] 382 10*3/uL Normal 140-440 [facility] Comment on above: Performed By: #### L [id number] ####Conservation Coordinator: PHILLY FRANCO ([phone])[facility] ([facility])[address] [place] [address] RBC (Bld) [#/Vol] 2.43 10*6/uL Low 3.80-5.20 [facility] Comment on above: Performed By: #### L [id number] ####Conservation Coordinator: PHILLY FRANCO ([phone])[facility])[address] [place] [address] WBC (Bld) [#/Vol] 13.2 10*3/uL High 3.6-10.7 [facility] Comment on above: Performed By: #### L [id number] ####Conservation Coordinator: PHILLY FRANCO ([phone])[facility])[address] [place] [address] Nursing Noteon 11-10-2024 Nursing Note Normal [facility] Progress Noteon 11-10-2024 Progress Note Normal [facility] Progress Note Normal [facility] Progress Note Normal [facility] Progress Note Normal [facility] Progress Note Normal [facility] BASIC METABOLIC PANELon 08-0 Anion gap [Moles/Vol] 8 mmol/L Normal 3-13 [facility] Comment on above: Performed By: #### L [id number] ####Conservation Coordinator: PHILLY FRANCO ([phone])[facility] ([facility])[address] [place] [address] Calcium [Mass/Vol] 7.4 mg/dL Low 8.8-10.[address] [facility] Comment on above: Performed By: #### L [id number] ####Conservation Coordinator: PHILLY FRANCO ([phone])[facility])[address] [place] [address] Chloride [Moles/Vol] 102 mmol/L Normal 98-107 [facility] Comment on above: Performed By: #### L [id number] ####Conservation Coordinator: PHILLY FRANCO ([phone])[facility] ([facility])[address] [place] [address] CO2 [Moles/Vol] 24 mmol/L Normal 23-[address] [facility] Comment on above: Performed By: #### L [id number] ####Conservation Coordinator: PHILLY FRANCO ([phone])[facility])[address] [place] [address] Creatinine [Mass/Vol] 4.02 mg/dL High 0.57-1.11 [facility] Comment on above: Performed By: #### L [id number] ####Conservation Coordinator: PHILLY FRANCO ([phone])[facility])[address] [place] [address] [place] GLOMERULAR FILTRATION RATE ML/MIN/1.73 SQ M.PREDICTED 11.2 mL/min/1.73m*2 Low >60.[address] [facility] Comment on above: Result Comment: Calc ulation based on the Chronic Kidney Disease Epidemiology Collaboration (CKD-EPI) equation refit without adjustment for race Performed By: #### L AB15 ####Conservation Coordinator: PHILLY RFANCO ([phone])[facility] ([facility])[address] [place] [address] Glucose [Mass/Vol] 68 mg/dL Low 82-[address] [facility] Comment on above: Performed By: #### L [id number] ####Conservation Coordinator: PHILLY FRANCO ([phone])[facility] ([facility])[address] [place] [address] Potassium [Moles/Vol] 4.5 mmol/L Normal 3.5-5.1 [facility] Comment on above: Result Comment: [facility] potassium values may be up to 0.5 mmol/L lower than serum values. Performed By: #### L AB15 ####Conservation Coordinator: PHILLY FRANCO ([phone])[facility] ([facility])[address] [place] [address] Sodium [Moles/Vol] 134 mmol/L Low 136-[address] [facility] Comment on above: Performed By: #### L [id number] ####Conservation Coordinator: PHILLY FRANCO ([phone])[facility] ([facility])[address] [place] [address] Urea nitrogen [Mass/Vol] 24 mg/dL High 9-[address] [facility] Comment on above: Performed By: #### L [id number] ####Conservation Coordinator: PHILLY FRANCO ([phone])[facility] ([facility])[address] [place] [address] BLOOD TYPE AND SCREEN GELon 11-09-2024 ABO GROUPING O Normal [facility] Comment on above: Performed By: #### L [id number] ####Conservation Coordinator: PHILLY FRANCO ([phone])[facility] BLOOD BANK ([facility])[address] [place] [address] RH TYPE IN BLOOD Positive Normal [facility] Comment on above: Performed By: #### L [id number] ####Conservation Coordinator: PHILLY FRANCO ([phone])[facility] BLOOD [facility] ([facility])[address] [place] [address] [place] Basic metabolic 1998 panelon 11-09-2024 Anion gap [Moles/Vol] 8 mmol/L 3 - 13 mmol/L [facility] Calcium [Mass/Vol] 7.4 mg/dL Low 8.8 - 10. 0 mg/dL [facility] Chloride [Moles/Vol] 102 mmol/L 98 - 10 7 mmol/L [facility] CO2 [Moles/Vol] 24 mmol/L 23 - 31 mmol/L [facility] Creatinine [Mass/Vol] 4.02 mg/dL High 0.57 - 1.11 mg/dL [facility] GFR/1.73 sq M.predicted (S/P/Bld) [Vol rate/Area] 11.2 mL/min Low - PINF [facility] Glucose [Mass/Vol] 68 mg/dL Low 82 - 115 mg/dL [facility] Interpretation and review of laboratory results Abnormal [facility] Potassium [Moles/Vol] 4.5 mmol/L 3.5 - 5.1 mmol/L [facility] Sodium [Moles/Vol] 134 mmol/L Low 136 - 145 mmol/L [facility] Urea nitrogen [Mass/Vol] 24 mg/dL High 9 - 23 mg/dL [facility] Blood type and Crossmatch pa kojo (Bld)on 11-09-2024 ABO group Nom (Bld) O [facility] Blood group antibody screen GEL Ql Negative [facility] D Ag Ql (RBC) Positive [facility] CBC W Auto Differential pane l (Bld)Ordered By: Yogi Stanley on 11-09-2024 Basophils (Bld) [#/Vol] 0.2 10*3/uL 0.0 - 0.2 10*3/uL [facility] Basophils/100 WBC (Bld) 1 % 0.0 - 2.0 % [facility] Eosinophils (Bld) [#/Vol] 0.4 10*3/uL 0.0 - 0.5 10*3/uL [facility] Eosinophils/100 WBC (Bld) 2.7 % 0.0 - 6.0 % [facility] Erythrocyte distribution width (RBC) [Ratio] 16.7 % High 11.5 - 15.0 % [facility] Hematocrit (Bld) [Volume fraction] 21.4 % Low 35.0 - 47.0 % [facility] Hemoglobin (Bld) [Mass/Vol] 6.8 g/dL Critically low 11.7 - 16.0 g/dL [facility] Immature granulocytes (Bld) [#/Vol] 0.1 10*3/uL High NINF - 0.1 10*3/uL [facility] Immature granulocytes/100 WBC (Bld) 0.8 % 0.0 - 2.0 % [facility] Interpretation and review of laboratory results Abnormal [facility] Lymphocytes (Bld) [#/Vol] 2.2 10*3/uL 1.0 - 4.3 10*3/uL [facility] Lymphocytes/100 WBC (Bld) 13.5 % Low 15.0 - 45.0 % [facility] MCH (RBC) [Entitic mass] 28.3 pg 26.0 - 34.0 pg [facility] MCHC (RBC) [Mass/Vol] 31.8 % 30.5 - 36.0 % [facility] MCV (RBC) [Entitic vol] 89.2 fL 77.0 - 99.0 fL [facility] [employer] Monocytes (Bld) [#/Vol] 1 10*3/uL High 0.0 - 0.9 10*3/uL [facility] Monocytes/100 WBC (Bld) 6.1 % 5.0 - 13.0 % [facility] Neutrophils (Bld) [#/Vol] 12.1 10*3/uL High 1.8 - 7.5 10*3/uL [facility] Neutrophils/100 WBC (Bld) 75.9 % 38.0 - 82.0 % [facility] Nucleated RBC/100 WBC (Bld) [Ratio] 0 % [facility] [employer] Platelet mean volume (Bld) [Entitic vol] 10.1 fL 9.0 - 12.7 fL [facility] Platelets (Bld) [#/Vol] 414 10*3/uL 140 - 440 10*3/uL [facility] RBC (Bld) [#/Vol] 2.4 10*6/uL Low 3.80 - 5.2 0 10*6/uL [facility] WBC (Bld) [#/Vol] 16 10*3/uL High 3.6 - 10.7 10*3/uL [facility] CBC WITH AUTO DIFFERENTIALon 11-09-2024 Basophils (Bld) [#/Vol] 0.2 10*3/uL Normal 0.0-0.2 [facility] Comment on above: Performed By: #### L [id number] ####Conservation Coordinator: PHILLY FRANCO ([phone])[facility])[address] [place] [address] Basophils/100 WBC (Bld) 1.0 % Normal 0.0-2.0 [facility] Comment on above: Performed By: #### L [id number] ####Conservation Coordinator: PHILLY FRANCO ([phone])[facility])[address] [place] [address] Eosinophils (Bld) [#/Vol] 0.4 10*3/uL Normal 0.0-0.5 [facility] Comment on above: Performed By: #### L [id number] ####Conservation Coordinator: PHILLY FRANCO ([phone])[facility])[address] [place] [address] Eosinophils/100 WBC (Bld) 2.7 % Normal 0.0-6.0 [facility] Comment on above: Performed By: #### L [id number] ####Conservation Coordinator: PHILLY FRANCO ([phone])[address] Erythrocyte distribution width (RBC) [Ratio] 16.7 % High 11.5-15.0 [facility] Comment on above: Performed By: #### L [id number] ####Conservation Coordinator: PHILLY FRANCO ([phone])[facility])[address] [place] [address] Hematocrit (Bld) [Volume fraction] 21.4 % Low 35.0-47.0 [facility] Comment on above: Performed By: #### L [id number] ####Conservation Coordinator: PHILLY FRANCO ([phone])[address] Hemoglobin (Bld) [Mass/Vol] 6.8 g/dL Critically low 11.7-16.0 [facility] Comment on above: Performed By: #### L [id number] ####Conservation Coordinator: PHILLY FRANCO ([phone])[facility])[address] [place] [address] IMMATURE GRANS % 0.8 % Normal 0.0-2.0 [facility] Comment on above: Performed By: #### L [id number] ####Conservation Coordinator: PHILLY FRANCO ([phone])[facility])[address] [place] [address] IMMATURE GRANS ABSOLUTE 0.1 10*3/uL High <0.1 [facility] Comment on above: Performed By: #### L [id number] ####Conservation Coordinator: PHILLY FRANCO ([phone])[facility])[address] [place] [address] Lymphocytes (Bld) [#/Vol] 2.2 10*3/uL Normal 1.0-4.3 [facility] Comment on above: Performed By: #### L [id number] ####Conservation Coordinator: PHILLY FRANCO ([phone])[facility])[address] [place] [address] Lymphocytes/100 WBC (Bld) 13.5 % Low 15.0-45.0 [facility] Comment on above: Performed By: #### L [id number] ####Conservation Coordinator: PHILLY FRANCO ([phone])[facility])[address] [place] [address] MCH (RBC) [Entitic mass] 28.3 pg Normal 26.0-34.0 [facility] Comment on above: Performed By: #### L [id number] ####Conservation Coordinator: PHILLY FRANCO ([phone])[facility])[address] [place] [address] MCHC 31.8 % Normal 30.5-36.0 [facility] Comment on above: Performed By: #### L [id number] ####Conservation Coordinator: PHILLY FRANCO ([phone])[facility])[address] [place] [address] MCV (RBC) [Entitic vol] 89.2 fL Normal 77.0-99.0 [facility] Comment on above: Performed By: #### L [id number] ####Conservation Coordinator: PHILLY FRANCO ([phone])[facility] ([facility])[address] [place] [address] Monocytes (Bld) [#/Vol] 1.0 10*3/uL High 0.0-0.9 [facility] Comment on above: Performed By: #### L [id number] ####Conservation Coordinator: PHILLY FRANCO ([phone])[facility] ([facility])[address] [place] [address] Monocytes/100 WBC (Bld) 6.1 % Normal 5.0-13.0 [facility] Comment on above: Performed By: #### L [id number] ####Conservation Coordinator: PHILLY FRANCO ([phone])[facility] ([facility])[address] [place] [address] NEUTROPHILS ABSOLUTE 12.1 10*3/uL High 1.8-7.5 [facility] Comment on above: Performed By: #### L [id number] ####Conservation Coordinator: PHILLY FRANCO ([phone])[facility])[address] [place] [address] Neutrophils/100 WBC (Bld) 75.9 % Normal 38.0-82.0 [facility] Comment on above: Performed By: #### L [id number] ####Conservation Coordinator: PHILLY FRANCO ([phone])[facility] ([facility])[address] [place] [address] NRBC 0.0 /100 WBCs Normal 0.0-2.0 [facility] Comment on above: Performed By: #### L [id number] ####Conservation Coordinator: PHILLY FRANCO ([phone])[facility] ([facility])[address] [place] [address] Platelet mean volume (Bld) [Entitic vol] 10.1 fL Normal 9.0-12.[address] [facility] Comment on above: Performed By: #### L [id number] ####Conservation Coordinator: PHILLY FRANCO ([phone])[facility])[address] [place] [address] Platelets (Bld) [#/Vol] 414 10*3/uL Normal 140-[address] [facility] Comment on above: Performed By: #### L [id number] ####Conservation Coordinator: PHILLY FRANCO ([phone])[facility])[address] [place] [address] RBC (Bld) [#/Vol] 2.40 10*6/uL Low 3.80-5.[address] [facility] Comment on above: Performed By: #### L [id number] ####Conservation Coordinator: PHILLY FRANCO ([phone])[facility])[address] [place] [address] WBC (Bld) [#/Vol] 16.0 10*3/uL High 3.6-10.[address] [facility] Comment on above: Performed By: #### L [id number] ####Conservation Coordinator: PHILLY FRANCO ([phone])[facility])[address] [place] [address] HEMOGLOBIN AND HEMATOCRIT, B [facility] 11-09-2024 Hematocrit (Bld) [Volume fraction] 25.9 % Low 35.0-47.[address] [facility] Comment on above: Order Comment: Recom mend 1 hour post transfusion Performed By: #### L [id number] ####Conservation Coordinator: PHILLY FRANCO ([phone])[facility])[address] [place] [address] Hemoglobin (Bld) [Mass/Vol] 8.6 g/dL Low 11.7-16.[address] [facility] Comment on above: Order Comment: Recom mend 1 hour post transfusion Performed By: #### L [id number] ####Conservation Coordinator: PHILLY FRANCO ([phone])[facility])[address] [place] [address] Hemoglobin (Bld) [Mass/Vol]O rdered By: Ct Hays on 11-09-2024 Hematocrit (Bld) [Volume fraction] 25.9 % Low 35.0 - 47.0 % [facility] Interpretation and review of laboratory results Abnormal [facility] Laboratory - Hematology and Cell countsOrdered By: Ct Hays on 11-09-2024 Hemoglobin (Bld) [Mass/Vol] 8.6 g/dL Low 11.7 - 16.0 g/dL [facility] No Panel Informationon 11-09 Blood Expiration Date [id number] S [facility] Crossmatch interpretation COMP [facility] Dispense Status Transfused [facility] Product Blood Type 5100 [facility] PRODUCT CODE [id number] [facility] Unit ABO O [facility] Unit Number [id number] [facility] Unit RH Positive [facility] Unit Volume 300 mL [facility] Blood Expiration Date [id number] S [facility] Crossmatch interpretation COMP [facility] Dispense Status Released from Crossmatch [facility] Dispense Status Transfused [facility] Product Blood Type 5100 [facility] PRODUCT CODE [id number] [facility] PRODUCT CODE [id number] [facility] ABO O [facility] Unit Number [id number] [facility] [id number] [facility] RH Positive [facility] Volume 300 mL [facility] Nursing Noteon 11[facility]09-[address] Note [address] [facility] Hospital Nursing Note Contacted Dr. Ciro rouse regarding pt screaming out in pain and having bit of confusion. Pt dressing saturated and changed again. Anjel H&H. Dialysis at bedside. Normal [facility] Nursing Note Normal [facility] Progress Noteon 11-09-2024 Progress Note Normal [facility] Progress Note Normal [facility] Progress Note Normal [facility] Progress Note Normal [facility] [id number] 11-08-2024 [id number] Auth obtained to return to [place] [facility] until 11/11. updated. RN reports continued bleeding, low BS and pain this am. Will follow. Normal [facility] BASIC METABOLIC PANELon 08-0 Anion gap [Moles/Vol] 6 mmol/L Normal 3-13 [facility] Comment on above: Performed By: #### L [id number] ####Conservation Coordinator: PHILLY FRANCO ([phone])[facility] [place] [address] Calcium [Mass/Vol] 7.2 mg/dL Low 8.8-10.[address] [facility] Comment on above: Performed By: #### L [id number] ####Conservation Coordinator: PHILLY FRANCO ([phone])[facility] ([facility])[address] [place] [address] Chloride [Moles/Vol] 103 mmol/L Normal 98-107 [facility] Comment on above: Performed By: #### L [id number] ####Conservation Coordinator: PHILLY FRANCO ([phone])[facility] ([facility])[address] [place] [address] CO2 [Moles/Vol] 26 mmol/L Normal 23-[address] [facility] Comment on above: Performed By: #### L [id number] ####Conservation Coordinator: PHILLY FRANCO ([phone])[facility] ([facility])[address] [place] [address] Creatinine [Mass/Vol] 2.91 mg/dL High 0.57-1.11 [facility] Comment on above: Performed By: #### L [id number] ####Conservation Coordinator: PHILLY FRANCO ([phone])[facility])[address] [place] [address] GLOMERULAR FILTRATION RATE ML/MIN/1.73 SQ M.PREDICTED 16.4 mL/min/1.73m*2 Low >60.[address] [facility] Comment on above: Result Comment: Calc ulation based on the Chronic Kidney Disease Epidemiology Collaboration (CKD-EPI) equation refit without adjustment for race Performed By: #### L [id number] ####Conservation Coordinator: PHILLY FRANCO ([phone])[facility] ([facility])[address] [place] [address] Glucose [Mass/Vol] 67 mg/dL Low 82-[address] [facility] Comment on above: Performed By: #### L [id number] ####Conservation Coordinator: PHILLY FRANCO ([phone])[facility] ([facility])[address] [place] [address] Potassium [Moles/Vol] 4.0 mmol/L Normal 3.5-5.1 [facility] Comment on above: Result Comment: [facility] potassium values may be up to 0.5 mmol/L lower than serum values. Performed By: #### L [id number] ####Conservation Coordinator: PHILLY FRANCO ([phone])[facility] ([facility])[address] [place] [address] Sodium [Moles/Vol] 135 mmol/L Low 136-[address] [facility] Comment on above: Performed By: #### L [id number] ####Conservation Coordinator: PHILLY FRANCO ([phone])[facility] ([facility])[address] [place] [address] Urea nitrogen [Mass/Vol] 18 mg/dL Normal 9-[address] [facility] Comment on above: Performed By: #### L [id number] ####Conservation Coordinator: PHILLY FRANCO ([phone])[facility])[address] [place] [address] Basic metabolic 1998 panelon 11-08-2024 Anion gap [Moles/Vol] 6 mmol/L 3 - 13 mmol/L [facility] Calcium [Mass/Vol] 7.2 mg/dL Low 8.8 - 10. 0 mg/dL [facility] Chloride [Moles/Vol] 103 mmol/L 98 - 10 7 mmol/L [facility] CO2 [Moles/Vol] 26 mmol/L 23 - 31 mmol/L [facility] Creatinine [Mass/Vol] 2.91 mg/dL High 0.57 - 1.11 mg/dL [facility] GFR/1.73 sq M.predicted (S/P/Bld) [Vol rate/Area] 16.4 mL/min Low - PINF [facility] Glucose [Mass/Vol] 67 mg/dL Low 82 - 115 mg/dL [facility] Interpretation and review of laboratory results Abnormal [facility] Potassium [Moles/Vol] 4 mmol/L 3.5 - 5.1 mmol/L [facility] Sodium [Moles/Vol] 135 mmol/L Low 136 - 145 mmol/L [facility] Urea nitrogen [Mass/Vol] 18 mg/dL 9 - 23 mg/dL [facility] CBC W Auto Differential pane l (Bld)on 11-08-2024 Basophils (Bld) [#/Vol] 0.1 10*3/uL 0.0 - 0.2 10*3/uL [facility] Basophils/100 WBC (Bld) 0.9 % 0.0 - 2.0 % [facility] Eosinophils (Bld) [#/Vol] 0.5 10*3/uL 0.0 - 0.5 10*3/uL [facility] Eosinophils/100 WBC (Bld) 4.1 % 0.0 - 6.0 % [facility] Erythrocyte distribution width (RBC) [Ratio] 17 % High 11.5 - 15.0 % [facility] Hematocrit (Bld) [Volume fraction] 23.1 % Low 35.0 - 47.0 % [facility] Hemoglobin (Bld) [Mass/Vol] 7.5 g/dL Low 11.7 - 16.0 g/dL [facility] Immature granulocytes (Bld) [#/Vol] 0.1 10*3/uL High NINF - 0.1 10*3/uL [facility] Immature granulocytes/100 WBC (Bld) 0.5 % 0.0 - 2.0 % [facility] Interpretation and review of laboratory results Abnormal [facility] Lymphocytes (Bld) [#/Vol] 2.2 10*3/uL 1.0 - 4.3 10*3/uL [facility] Lymphocytes/100 WBC (Bld) 16.6 % 15.0 - 45.0 % [facility] MCH (RBC) [Entitic mass] 28.8 pg 26.0 - 34.0 pg [facility] MCHC (RBC) [Mass/Vol] 32.5 % 30.5 - 36.0 % [facility] MCV (RBC) [Entitic vol] 88.8 fL 77.0 - 99.0 fL [facility] Monocytes (Bld) [#/Vol] 0.9 10*3/uL 0.0 - 0.9 10*3/uL [facility] Monocytes/100 WBC (Bld) 6.9 % 5.0 - 13.0 % [facility] Neutrophils (Bld) [#/Vol] 9.2 10*3/uL High 1.8 - 7.5 10*3/uL [facility] Neutrophils/100 WBC (Bld) 71 % 38.0 - 82.0 % [facility] Nucleated RBC/100 WBC (Bld) [Ratio] 0 % [facility] Platelet mean volume (Bld) [Entitic vol] 10.3 fL 9.0 - 12.7 fL [facility] Platelets (Bld) [#/Vol] 376 10*3/uL 140 - 440 10*3/uL [facility] RBC (Bld) [#/Vol] 2.6 10*6/uL Low 3.80 - 5.2 0 10*6/uL [facility] WBC (Bld) [#/Vol] 13 10*3/uL High 3.6 - 10.7 10*3/uL [facility] CBC WITH AUTO DIFFERENTIALon 11-08-2024 Basophils (Bld) [#/Vol] 0.1 10*3/uL Normal 0.0-0.2 [facility] Comment on above: Performed By: #### L [id number] ####Conservation Coordinator: PHILLY [phone])[facility] ([facility])[address] [place] [address] Basophils/100 WBC (Bld) 0.9 % Normal 0.0-2.0 [facility] Comment on above: Performed By: #### L [id number] ####Conservation Coordinator: PHILLY FRANCO ([phone])[facility] ([facility])[address] [place] [address] [place] Eosinophils (Bld) [#/Vol] 0.5 10*3/uL Normal 0.0-0.5 [facility] Comment on above: Performed By: #### L [id number] ####Conservation Coordinator: PHILLY FRANCO ([phone])[facility] ([facility])[address] [place] [address] [place] Eosinophils/100 WBC (Bld) 4.1 % Normal 0.0-6.0 [facility] Comment on above: Performed By: #### L [id number] ####Conservation Coordinator: PHILLY FRANCO ([phone])[facility])[address] [place] [address] Erythrocyte distribution width (RBC) [Ratio] 17.0 % High 11.5-15.0 [facility] Comment on above: Performed By: #### L [id number] ####Conservation Coordinator: PHILLY FRANCO ([phone])[facility])[address] [place] [address] Hematocrit (Bld) [Volume fraction] 23.1 % Low 35.0-47.0 [facility] Comment on above: Performed By: #### L [id number] ####Conservation Coordinator: PHILLY FRANCO ([phone])[address] Hemoglobin (Bld) [Mass/Vol] 7.5 g/dL Low 11.7-16.0 [facility] Comment on above: Performed By: #### L [id number] ####Conservation Coordinator: PHILLY FRANCO ([phone])[address] IMMATURE GRANS % 0.5 % Normal 0.0-2.0 [facility] Comment on above: Performed By: #### L [id number] ####Conservation Coordinator: PHILLY FRANCO ([phone])[address] IMMATURE GRANS ABSOLUTE 0.1 10*3/uL High <0.1 [facility] Comment on above: Performed By: #### L [id number] ####Conservation Coordinator: PHILLY FRANCO ([phone])[address] Lymphocytes (Bld) [#/Vol] 2.2 10*3/uL Normal 1.0-4.3 [facility] Comment on above: Performed By: #### L [id number] ####Conservation Coordinator: PHILLY FRANCO ([phone])[facility] ([facility])[address] [place] [address] Lymphocytes/100 WBC (Bld) 16.6 % Normal 15.0-45.0 [facility] Comment on above: Performed By: #### L [id number] ####Conservation Coordinator: PHILLY FRANCO ([phone])[facility])[address] [place] [address] MCH (RBC) [Entitic mass] 28.8 pg Normal 26.0-34.0 [facility] Comment on above: Performed By: #### L [id number] ####Conservation Coordinator: PHILLY FRANCO ([phone])[facility])[address] [place] [address] MCHC 32.5 % Normal 30.5-36.0 [facility] Comment on above: Performed By: #### L [id number] ####Conservation Coordinator: PIHLLY FRANCO ([phone])[facility] ([facility])[address] [place] [address] MCV (RBC) [Entitic vol] 88.8 fL Normal 77.0-99.0 [facility] Comment on above: Performed By: #### L [id number] ####Conservation Coordinator: PHILLY FRANCO ([phone])[facility])[address] [place] [address] Monocytes (Bld) [#/Vol] 0.9 10*3/uL Normal 0.0-0.9 [facility] Comment on above: Performed By: #### L [id number] ####Conservation Coordinator: PHILLY FRANCO ([phone])[facility])[address] [place] [address] Monocytes/100 WBC (Bld) 6.9 % Normal 5.0-13.0 [facility] Comment on above: Performed By: #### L [id number] ####Conservation Coordinator: PHILLY FRANCO ([phone])[facility] [place] [address] NEUTROPHILS ABSOLUTE 9.2 10*3/uL High 1.8-7.5 [facility] Comment on above: Performed By: #### L [id number] ####Conservation Coordinator: PHILLY FRANCO ([phone])[facility] ([facility])[address] [place] [address] Neutrophils/100 WBC (Bld) 71.0 % Normal 38.0-82.[address] [facility] Comment on above: Performed By: #### L [id number] ####Conservation Coordinator: PHILLY FRANCO ([phone])[facility] ([facility])[address] [place] [address] NRBC 0.0 /100 WBCs Normal 0.0-2.[address] [facility] Comment on above: Performed By: #### L [id number] ####Conservation Coordinator: PHILLY FRANCO ([phone])[facility] ([facility])[address] [place] [address] Platelet mean volume (Bld) [Entitic vol] 10.3 fL Normal 9.0-12.[address] [facility] Comment on above: Performed By: #### L [id number] ####Conservation Coordinator: PHILLY FRANCO ([phone])[facility] ([facility])[address] [place] [address] Platelets (Bld) [#/Vol] 376 10*3/uL Normal 140-[address] [facility] Comment on above: Performed By: #### L [id number] ####Conservation Coordinator: PHILLY FRANCO ([phone])[facility] ([facility])[address] [place] [address] [place] RBC (Bld) [#/Vol] 2.60 10*6/uL Low 3.80-5.[address] [facility] Comment on above: Performed By: #### L [id number] ####Conservation Coordinator: PHILLY FRANCO ([phone])[facility] ([facility])[address] [place] [address] [place] WBC (Bld) [#/Vol] 13.0 10*3/uL High 3.6-10.[address] [facility] Comment on above: Performed By: #### L [id number] ####Conservation Coordinator: PHILLY FRANCO ([phone])[facility])[address] [place] [address] Laboratory - Chemistry and C hemistry - challengeon 11-08-2024 Glucose [Mass/Vol] 117 mg/dL High 70 - 100 mg/dL [facility] No Panel Informationon 11-08 Interpretation and review of laboratory results Abnormal [facility] Nursing Noteon 11-08-2024 Nursing Note Blood sugar 67 orang e juice given pt resting quietly , denies any s/s of hypoglycemia. Normal [facility] Progress Noteon 11-08-2024 Progress Note Normal [facility] Progress Note Normal [facility] [id number] 11-07-2024 [id number] Per [facility] yesterday and that they started a new auth today. Normal [facility] [id number] Normal [facility] BASIC METABOLIC PANELon Anion gap [Moles/Vol] 11 mmol/L Normal 3-13 [facility] Comment on above: Performed By: #### L [id number] ####Conservation Coordinator: PHILLY FRANCO ([phone])[facility])[address] [place] [address] Calcium [Mass/Vol] 7.2 mg/dL Low 8.8-10.[address] [facility] Comment on above: Performed By: #### L [id number] ####Conservation Coordinator: PHILLY FRANCO ([phone])[facility])[address] [place] [address] Chloride [Moles/Vol] 105 mmol/L Normal 98-107 [facility] Comment on above: Performed By: #### L [id number] ####Conservation Coordinator: PHILLY FRANCO ([phone])[facility])[address] [place] [address] CO2 [Moles/Vol] 23 mmol/L Normal 23-[address] [facility] Comment on above: Performed By: #### L AB15 ####Conservation Coordinator: PHILLY FRANCO ([phone])[facility])[address] [place] [address] Creatinine [Mass/Vol] 4.35 mg/dL High 0.57-1.11 [facility] Comment on above: Performed By: #### L [id number] ####Conservation Coordinator: PHILLY FRANCO ([phone])[facility] ([facility])[address] [place] [address] GLOMERULAR FILTRATION RATE ML/MIN/1.73 SQ M.PREDICTED 10.1 mL/min/1.73m*2 Low >60.[address] [facility] Comment on above: Result Comment: Calc ulation based on the Chronic Kidney Disease Epidemiology Collaboration (CKD-EPI) equation refit without adjustment for race Performed By: #### L [id number] ####Conservation Coordinator: PHILLY FRANCO ([phone])[facility] ([facility])[address] [place] [address] Glucose [Mass/Vol] 82 mg/dL Normal 82-[address] [facility] Comment on above: Performed By: #### L [id number] ####Conservation Coordinator: PHILLY FRANCO ([phone])[facility])[address] [place] [address] [place] Potassium [Moles/Vol] 4.8 mmol/L Normal 3.5-5.1 [facility] Comment on above: Result Comment: [facility] potassium values may be up to 0.5 mmol/L lower than serum values. Performed By: #### L AB15 ####Conservation Coordinator: PHILLY FRANCO ([phone])[facility])[address] [place] [address] [place] Sodium [Moles/Vol] 139 mmol/L Normal 136-[address] [facility] Comment on above: Performed By: #### L [id number] ####Conservation Coordinator: PHILLY FRANCO ([phone])[facility])[address] [place] [address] Urea nitrogen [Mass/Vol] 37 mg/dL High 9-23 [facility] Comment on above: Performed By: #### L [id number] ####Conservation Coordinator: PHILLY FRANCO ([phone])[facility] ([facility])[address] [place] [address] Bacteria identified Anaer cx Nom (Unsp spec)on 11-07-2024 Interpretation and review of laboratory results Normal [facility] Interpretation and review of laboratory results Normal [facility] Basic metabolic 1998 panelon 11-07-2024 Anion gap [Moles/Vol] 11 mmol/L 3 - 13 mmol/L [facility] Calcium [Mass/Vol] 7.2 mg/dL Low 8.8 - 10. 0 mg/dL [facility] Chloride [Moles/Vol] 105 mmol/L 98 - 10 7 mmol/L [facility] CO2 [Moles/Vol] 23 mmol/L 23 - 31 mmol/L [facility] Creatinine [Mass/Vol] 4.35 mg/dL High 0.57 - 1.11 mg/dL [facility] GFR/1.73 sq M.predicted (S/P/Bld) [Vol rate/Area] 10.1 mL/min Low - PINF [facility] Glucose [Mass/Vol] 82 mg/dL 82 - 115 mg/dL [facility] Interpretation and review of laboratory results Abnormal [facility] Potassium [Moles/Vol] 4.8 mmol/L 3.5 - 5.1 mmol/L [facility] Sodium [Moles/Vol] 139 mmol/L 136 - 145 mmol/L [facility] Urea nitrogen [Mass/Vol] 37 mg/dL High 9 - 23 mg/dL [facility] CBC W Auto Differential pane l (Bld)on 11-07-2024 Basophils (Bld) [#/Vol] 0.1 10*3/uL 0.0 - 0.2 10*3/uL [facility] Basophils/100 WBC (Bld) 1 % 0.0 - 2.0 % [facility] Eosinophils (Bld) [#/Vol] 0.7 10*3/uL High 0.0 - 0.5 10*3/uL [facility] Eosinophils/100 WBC (Bld) 4.7 % 0.0 - 6.0 % [facility] Erythrocyte distribution width (RBC) [Ratio] 17.5 % High 11.5 - 15.0 % [facility] Hematocrit (Bld) [Volume fraction] 23.6 % Low 35.0 - 47.0 % [facility] Hemoglobin (Bld) [Mass/Vol] 7.6 g/dL Low 11.7 - 16.0 g/dL [facility] Immature granulocytes (Bld) [#/Vol] 0.1 10*3/uL High NINF - 0.1 10*3/uL [facility] Immature granulocytes/100 WBC (Bld) 0.6 % 0.0 - 2.0 % [facility] Interpretation and review of laboratory results Abnormal [facility] Lymphocytes (Bld) [#/Vol] 3.1 10*3/uL 1.0 - 4.3 10*3/uL [facility] Lymphocytes/100 WBC (Bld) 22.2 % 15.0 - 45.0 % [facility] MCH (RBC) [Entitic mass] 28.6 pg 26.0 - 34.0 pg [facility] MCHC (RBC) [Mass/Vol] 32.2 % 30.5 - 36.0 % [facility] MCV (RBC) [Entitic vol] 88.7 fL 77.0 - 99.0 fL [facility] Monocytes (Bld) [#/Vol] 1 10*3/uL High 0.0 - 0.9 10*3/uL [facility] Monocytes/100 WBC (Bld) 6.8 % 5.0 - 13.0 % [facility] Neutrophils (Bld) [#/Vol] 9.1 10*3/uL High 1.8 - 7.5 10*3/uL [facility] Neutrophils/100 WBC (Bld) 64.7 % 38.0 - 82.0 % [facility] Nucleated RBC/100 WBC (Bld) [Ratio] 0 % [facility] Platelet mean volume (Bld) [Entitic vol] 10.5 fL 9.0 - 12.7 fL [facility] Platelets (Bld) [#/Vol] 377 10*3/uL 140 - 440 10*3/uL [facility] RBC (Bld) [#/Vol] 2.66 10*6/uL Low 3.80 - 5.2 0 10*6/uL [facility] WBC (Bld) [#/Vol] 14.1 10*3/uL High 3.6 - 10.7 10*3/uL [facility] CBC WITH AUTO DIFFERENTIALon 11-07-2024 Basophils (Bld) [#/Vol] 0.1 10*3/uL Normal 0.0-0.2 [facility] Comment on above: Performed By: #### L [id number] ####Conservation Coordinator: PHILLY FRANCO ([phone])[facility] ([facility])[address] [place] [address] Basophils/100 WBC (Bld) 1.0 % Normal 0.0-2.0 [facility] Comment on above: Performed By: #### L [id number] ####Conservation Coordinator: PHILLY FRANCO ([phone])[facility])[address] [place] [address] Eosinophils (Bld) [#/Vol] 0.7 10*3/uL High 0.0-0.5 [facility] Comment on above: Performed By: #### L [id number] ####Conservation Coordinator: PHILLY FRANCO ([phone])[facility])[address] [place] [address] Eosinophils/100 WBC (Bld) 4.7 % Normal 0.0-6.0 [facility] Comment on above: Performed By: #### L [id number] ####Conservation Coordinator: PHILLY FRANCO ([phone])[facility])[address] [place] [address] Erythrocyte distribution width (RBC) [Ratio] 17.5 % High 11.5-15.0 [facility] Comment on above: Performed By: #### L [id number] ####Conservation Coordinator: PHILLY FRANCO ([phone])[facility])[address] [place] [address] Hematocrit (Bld) [Volume fraction] 23.6 % Low 35.0-47.0 [facility] Comment on above: Performed By: #### L [id number] ####Conservation Coordinator: PHILLY FRANCO ([phone])[facility])[address] [place] [address] Hemoglobin (Bld) [Mass/Vol] 7.6 g/dL Low 11.7-16.0 [facility] Comment on above: Performed By: #### L [id number] ####Conservation Coordinator: PHILLY FRANCO ([phone])[facility])[address] [place] [address] IMMATURE GRANS % 0.6 % Normal 0.0-2.0 [facility] Comment on above: Performed By: #### L [id number] ####Conservation Coordinator: PHILLY FRANCO ([phone])[facility])[address] [place] [address] IMMATURE GRANS ABSOLUTE 0.1 10*3/uL High <0.1 [facility] Comment on above: Performed By: #### L [id number] ####Conservation Coordinator: PHILLY FRANCO ([phone])[facility])[address] [place] [address] Lymphocytes (Bld) [#/Vol] 3.1 10*3/uL Normal 1.0-4.3 [facility] Comment on above: Performed By: #### L [id number] ####Conservation Coordinator: PHILLY FRANCO ([phone])[facility])[address] [place] [address] Lymphocytes/100 WBC (Bld) 22.2 % Normal 15.0-45.0 [facility] Comment on above: Performed By: #### L [id number] ####Conservation Coordinator: PHILLY FRANCO ([phone])[address] MCH (RBC) [Entitic mass] 28.6 pg Normal 26.0-34.0 [facility] Comment on above: Performed By: #### L [id number] ####Conservation Coordinator: PHILLY FRANCO ([phone])[facility] [place] [address] MCHC 32.2 % Normal 30.5-36.[address] [facility] Comment on above: Performed By: #### L [id number] ####Conservation Coordinator: PHILLY FRANCO ([phone])[facility] ([facility])[address] [place] [address] MCV (RBC) [Entitic vol] 88.7 fL Normal 77.0-99.0 [facility] Comment on above: Performed By: #### L [id number] ####Conservation Coordinator: PHILLY FRANCO ([phone])[facility] ([facility])[address] [place] [address] Monocytes (Bld) [#/Vol] 1.0 10*3/uL High 0.0-0.[address] [facility] Comment on above: Performed By: #### L [id number] ####Conservation Coordinator: PHILLY FRANCO ([phone])[facility] ([facility])[address] [place] [address] Monocytes/100 WBC (Bld) 6.8 % Normal 5.0-13.0 [facility] Comment on above: Performed By: #### L [id number] ####Conservation Coordinator: PHILLY FRANCO ([phone])[facility] ([facility])[address] [place] [address] NEUTROPHILS ABSOLUTE 9.1 10*3/uL High 1.8-7.5 [facility] Comment on above: Performed By: #### L [id number] ####Conservation Coordinator: PHILLY FRANCO ([phone])[facility] ([facility])[address] [place] [address] Neutrophils/100 WBC (Bld) 64.7 % Normal 38.0-82.[address] [facility] Comment on above: Performed By: #### L [id number] ####Conservation Coordinator: PHILLY FRANCO ([phone])[facility] ([facility])[address] [place] [address] NRBC 0.0 /100 WBCs Normal 0.0-2.0 [facility] Comment on above: Performed By: #### L [id number] ####Conservation Coordinator: PHILLY FRANCO ([phone])[facility])[address] [place] [address] Platelet mean volume (Bld) [Entitic vol] 10.5 fL Normal 9.0-12.7 [facility] Comment on above: Performed By: #### L [id number] ####Conservation Coordinator: PHILLY FRANCO ([phone])[facility] ([facility])[address] [place] [address] Platelets (Bld) [#/Vol] 377 10*3/uL Normal 140-440 [facility] Comment on above: Performed By: #### L [id number] ####Conservation Coordinator: PHILLY FRANCO ([phone])[facility])[address] [place] [address] RBC (Bld) [#/Vol] 2.66 10*6/uL Low 3.80-5.20 [facility] Comment on above: Performed By: #### L [id number] ####Conservation Coordinator: PHILLY FRANCO ([phone])[facility])[address] [place] [address] WBC (Bld) [#/Vol] 14.1 10*3/uL High 3.6-10.7 [facility] Comment on above: Performed By: #### L [id number] ####Conservation Coordinator: PHILLY FRANCO ([phone])[facility])[address] [place] [address] Laboratory - Microbiology an d Antimicrobial susceptibilityon 11-07-2024 Bacteria identified Anaer cx Nom (Unsp spec) No growth at 5 days [facility] Bacteria identified Anaer cx Nom (Unsp spec) No growth at 5 days [facility] Nursing Noteon 11-07-2024 Nursing Note Normal [facility] Progress Noteon 11-07-2024 Progress Note Normal [facility] Progress Note Normal [facility] Progress Note Normal [facility] Progress Note Normal [facility] [id number] 11-06-2024 [id number] Updated notes sent t [facility] via [facility] per [facility] request. Await review and response regarding ability to accept. [facility] notified. Normal [facility] [phone] [facility] messaged to send updates to [facility] with request to start auth to return. Normal [facility] [phone] Normal [facility] BASIC METABOLIC PANELon Anion gap [Moles/Vol] 9 mmol/L Normal 3-13 [facility] Comment on above: Performed By: #### L [id number] ####Conservation Coordinator: PHILLY FRANCO ([phone])[address] Calcium [Mass/Vol] 7.3 mg/dL Low 8.8-10.[address] [facility] Comment on above: Performed By: #### L [id number] ####Conservation Coordinator: PHILLY FRANCO ([phone])[address] Basic metabolic 1998 panelon 11-06-2024 Anion gap [Moles/Vol] 9 mmol/L 3 - 13 mmol/L [facility] Calcium [Mass/Vol] 7.3 mg/dL Low 8.8 - 10. 0 mg/dL [facility] Chloride [Moles/Vol] 105 mmol/L 98 - 10 7 mmol/L [facility] CO2 [Moles/Vol] 24 mmol/L 23 - 31 mmol/L [facility] Creatinine [Mass/Vol] 3.5 mg/dL High 0.57 - 1.11 mg/dL [facility] GFR/1.73 sq M.predicted (S/P/Bld) [Vol rate/Area] 13.2 mL/min Low - PINF [facility] Glucose [Mass/Vol] 123 mg/dL High 82 - 115 mg/dL [facility] Interpretation and review of laboratory results Abnormal [facility] Potassium [Moles/Vol] 4.7 mmol/L 3.5 - 5.1 mmol/L [facility] Sodium [Moles/Vol] 138 mmol/L 136 - 145 mmol/L [facility] Urea nitrogen [Mass/Vol] 24 mg/dL High 9 - 23 mg/dL [facility] CBC W Auto Differential pane l (Bld)on 11-06-2024 Basophils (Bld) [#/Vol] 0.1 10*3/uL 0.0 - 0.2 10*3/uL [facility] Basophils/100 WBC (Bld) 0.6 % 0.0 - 2.0 % [facility] Eosinophils (Bld) [#/Vol] 0 10*3/uL 0.0 - 0.5 10*3/uL [facility] Eosinophils/100 WBC (Bld) 0.1 % 0.0 - 6.0 % [facility] Erythrocyte distribution width (RBC) [Ratio] 17.4 % High 11.5 - 15.0 % [facility] Hematocrit (Bld) [Volume fraction] 27.6 % Low 35.0 - 47.0 % [facility] Hemoglobin (Bld) [Mass/Vol] 9.3 g/dL Low 11.7 - 16.0 g/dL [facility] Immature granulocytes (Bld) [#/Vol] 0.1 10*3/uL High NINF - 0.1 10*3/uL [facility] Immature granulocytes/100 WBC (Bld) 0.6 % 0.0 - 2.0 % [facility] Interpretation and review of laboratory results Abnormal [facility] Lymphocytes (Bld) [#/Vol] 2.3 10*3/uL 1.0 - 4.3 10*3/uL [facility] Lymphocytes/100 WBC (Bld) 14.8 % Low 15.0 - 45.0 % [facility] MCH (RBC) [Entitic mass] 28.8 pg 26.0 - 34.0 pg [facility] MCHC (RBC) [Mass/Vol] 33.7 % 30.5 - 36.0 % [facility] MCV (RBC) [Entitic vol] 85.4 fL 77.0 - 99.0 fL [facility] Monocytes (Bld) [#/Vol] 1 10*3/uL High 0.0 - 0.9 10*3/uL [facility] Monocytes/100 WBC (Bld) 6.1 % 5.0 - 13.0 % [facility] Neutrophils (Bld) [#/Vol] 12.2 10*3/uL High 1.8 - 7.5 10*3/uL [facility] Neutrophils/100 WBC (Bld) 77.8 % 38.0 - 82.0 % [facility] Nucleated RBC/100 WBC (Bld) [Ratio] 0 % [facility] Platelet mean volume (Bld) [Entitic vol] 10.6 fL 9.0 - 12.7 fL [facility] Platelets (Bld) [#/Vol] 388 10*3/uL 140 - 440 10*3/uL [facility] RBC (Bld) [#/Vol] 3.23 10*6/uL Low 3.80 - 5.2 0 10*6/uL [facility] WBC (Bld) [#/Vol] 15.6 10*3/uL High 3.6 - 10.7 10*3/uL [facility] Progress Noteon 11-06-2024 Progress Note Normal [facility] Progress Note Normal [facility] Progress Note Normal [facility] Progress Note Normal [facility] Progress Note Normal [facility] Bacteria identified Aer cx N om (Unsp spec)on 11-05-2024 Gram Stain Result Moderate Polymorphonuclear leukocytes per low power field [facility] Gram Stain Result No organisms seen [facility] Bacteria identified Aer cx N om (Unsp spec)Ordered By: Te Laguna on 11-05-2024 Gram Stain Result Few Polymorphonuclea r leukocytes per low power field [facility] Gram Stain Result No organisms seen [facility] Basic metabolic 1998 panelon 11-05-2024 Anion gap [Moles/Vol] 9 mmol/L 3 - 13 mmol/L [facility] Calcium [Mass/Vol] 7.3 mg/dL Low 8.8 - 10. 0 mg/dL [facility] Chloride [Moles/Vol] 104 mmol/L 98 - 10 7 mmol/L [facility] CO2 [Moles/Vol] 25 mmol/L 23 - 31 mmol/L [facility] Creatinine [Mass/Vol] 2.53 mg/dL High 0.57 - 1.11 mg/dL [facility] GFR/1.73 sq M.predicted (S/P/Bld) [Vol rate/Area] 19.4 mL/min Low - PINF [facility] Glucose [Mass/Vol] 66 mg/dL Low 82 - 115 mg/dL [facility] Interpretation and review of laboratory results Abnormal [facility] Potassium [Moles/Vol] 3.8 mmol/L 3.5 - 5.1 mmol/L [facility] Sodium [Moles/Vol] 138 mmol/L 136 - 145 mmol/L [facility] Urea nitrogen [Mass/Vol] 13 mg/dL 9 - 23 mg/dL [facility] Blood type and Crossmatch pa kojo (Bld)on 11-05-2024 ABO group Nom (Bld) O [facility] Blood group antibody screen GEL Ql Negative [facility] D Ag Ql (RBC) Positive [facility] CBC W Auto Differential pane l (Bld)Ordered By: Beatriz Morales on 11-05-2024 Basophils (Bld) [#/Vol] 0.1 10*3/uL 0.0 - 0.2 10*3/uL [facility] Basophils/100 WBC (Bld) 0.8 % 0.0 - 2.0 % [facility] Eosinophils (Bld) [#/Vol] 0.8 10*3/uL High 0.0 - 0.5 10*3/uL [facility] Eosinophils/100 WBC (Bld) 5.1 % 0.0 - 6.0 % [facility] Erythrocyte distribution width (RBC) [Ratio] 17.3 % High 11.5 - 15.0 % [facility] Hematocrit (Bld) [Volume fraction] 20.3 % Low 35.0 - 47.0 % [facility] Hemoglobin (Bld) [Mass/Vol] 6.6 g/dL Critically low 11.7 - 16.0 g/dL [facility] Immature granulocytes (Bld) [#/Vol] 0.1 10*3/uL High NINF - 0.1 10*3/uL [facility] Immature granulocytes/100 WBC (Bld) 0.6 % 0.0 - 2.0 % [facility] Interpretation and review of laboratory results Abnormal [facility] Lymphocytes (Bld) [#/Vol] 2.2 10*3/uL 1.0 - 4.3 10*3/uL [facility] Lymphocytes/100 WBC (Bld) 14.8 % Low 15.0 - 45.0 % [facility] MCH (RBC) [Entitic mass] 28.4 pg 26.0 - 34.0 pg [facility] MCHC (RBC) [Mass/Vol] 32.5 % 30.5 - 36.0 % [facility] MCV (RBC) [Entitic vol] 87.5 fL 77.0 - 99.0 fL [facility] Monocytes (Bld) [#/Vol] 0.9 10*3/uL 0.0 - 0.9 10*3/uL [facility] Monocytes/100 WBC (Bld) 6.2 % 5.0 - 13.0 % [facility] Neutrophils (Bld) [#/Vol] 10.6 10*3/uL High 1.8 - 7.5 10*3/uL [facility] Neutrophils/100 WBC (Bld) 72.5 % 38.0 - 82.0 % [facility] Nucleated RBC/100 WBC (Bld) [Ratio] 0 % [facility] Platelet mean volume (Bld) [Entitic vol] 10.9 fL 9.0 - 12.7 fL [facility] Platelets (Bld) [#/Vol] 391 10*3/uL 140 - 440 10*3/uL [facility] RBC (Bld) [#/Vol] 2.32 10*6/uL Low 3.80 - 5.2 0 10*6/uL [facility] WBC (Bld) [#/Vol] 14.6 10*3/uL High 3.6 - 10.7 10*3/uL [facility] Hemoglobin (Bld) [Mass/Vol]O rdered By: Emily Hernández on 11-05-2024 Hematocrit (Bld) [Volume fraction] 28.2 % Low 35.0 - 47.0 % [facility] Interpretation and review of laboratory results Abnormal [facility] Hemoglobin (Bld) [Mass/Vol]o n 11-05-2024 Hematocrit (Bld) [Volume fraction] 18 % Low 35.0 - 47.0 % [facility] Interpretation and review of laboratory results Abnormal [facility] Laboratory - Hematology and Cell countsOrdered By: Emily Hernández on 11-05-2024 Hemoglobin (Bld) [Mass/Vol] 9.4 g/dL Low 11.7 - 16.0 g/dL [facility] Laboratory - Hematology and Cell countson 11-05-2024 Hemoglobin (Bld) [Mass/Vol] 5.8 g/dL Critically low 11.7 - 16.0 g/dL [facility] Laboratory - Microbiology an d Antimicrobial susceptibilityon 11-05-2024 Bacteria identified Aer cx Nom (Unsp spec) No growth at 72 hours [facility] Laboratory - Microbiology an d Antimicrobial susceptibilityOrdered By: Te Laguna on 11-05-2024 Bacteria identified Aer cx Nom (Unsp spec) No growth at 72 hours [facility] No Panel Informationon 11-05 Blood Expiration Date [id number] S [facility] Crossmatch interpretation COMP [facility] Dispense Status Transfused [facility] [employer] Product Blood Type 5100 [facility] [employer] PRODUCT CODE [id number] [facility] Unit ABO O [facility] Unit Number [id number] [facility] RH Positive [facility] Unit Volume 300 mL [facility] Blood Expiration Date [id number] S [facility] Crossmatch interpretation COMP [facility] Dispense Status Released from Crossmatch [facility] [employer] Product Blood Type 5100 [facility] PRODUCT CODE [id number] [facility] Unit ABO O [facility] Unit Number [id number] [facility] Unit RH Positive [facility] Unit Volume 300 mL [facility] Basic metabolic 1998 panelon 11-04-2024 Anion gap [Moles/Vol] 11 mmol/L 3 - 13 mmol/L [facility] Calcium [Mass/Vol] 7.2 mg/dL Low 8.8 - 10. 0 mg/dL [facility] Chloride [Moles/Vol] 104 mmol/L 98 - 10 7 mmol/L [facility] CO2 [Moles/Vol] 24 mmol/L 23 - 31 mmol/L [facility] Creatinine [Mass/Vol] 3.47 mg/dL High 0.57 - 1.11 mg/dL [facility] GFR/1.73 sq M.predicted (S/P/Bld) [Vol rate/Area] 13.3 mL/min Low - PINF [facility] Glucose [Mass/Vol] 79 mg/dL Low 82 - 115 mg/dL [facility] Interpretation and review of laboratory results Abnormal [facility] Potassium [Moles/Vol] 4 mmol/L 3.5 - 5.1 mmol/L [facility] Sodium [Moles/Vol] 139 mmol/L 136 - 145 mmol/L [facility] Urea nitrogen [Mass/Vol] 25 mg/dL High 9 - 23 mg/dL [facility] CBC W Auto Differential pane l (Bld)on 11-04-2024 Basophils (Bld) [#/Vol] 0.1 10*3/uL 0.0 - 0.2 10*3/uL [facility] Basophils/100 WBC (Bld) 0.8 % 0.0 - 2.0 % [facility] Eosinophils (Bld) [#/Vol] 0.5 10*3/uL 0.0 - 0.5 10*3/uL [facility] Eosinophils/100 WBC (Bld) 3.1 % 0.0 - 6.0 % [facility] Erythrocyte distribution width (RBC) [Ratio] 18 % High 11.5 - 15.0 % [facility] Hematocrit (Bld) [Volume fraction] 23 % Low 35.0 - 47.0 % [facility] Hemoglobin (Bld) [Mass/Vol] 7.7 g/dL Low 11.7 - 16.0 g/dL [facility] Immature granulocytes (Bld) [#/Vol] 0.1 10*3/uL High NINF - 0.1 10*3/uL [facility] Immature granulocytes/100 WBC (Bld) 0.6 % 0.0 - 2.0 % [facility] Interpretation and review of laboratory results Abnormal [facility] Lymphocytes (Bld) [#/Vol] 2.5 10*3/uL 1.0 - 4.3 10*3/uL [facility] Lymphocytes/100 WBC (Bld) 15.9 % 15.0 - 45.0 % [facility] MCH (RBC) [Entitic mass] 28.9 pg 26.0 - 34.0 pg [facility] MCHC (RBC) [Mass/Vol] 33.5 % 30.5 - 36.0 % [facility] MCV (RBC) [Entitic vol] 86.5 fL 77.0 - 99.0 fL [facility] Monocytes (Bld) [#/Vol] 0.9 10*3/uL 0.0 - 0.9 10*3/uL [facility] Monocytes/100 WBC (Bld) 5.9 % 5.0 - 13.0 % [facility] Neutrophils (Bld) [#/Vol] 11.4 10*3/uL High 1.8 - 7.5 10*3/uL [facility] Neutrophils/100 WBC (Bld) 73.7 % 38.0 - 82.0 % [facility] Nucleated RBC/100 WBC (Bld) [Ratio] 0 % [facility] Platelet mean volume (Bld) [Entitic vol] 10.6 fL 9.0 - 12.7 fL [facility] Platelets (Bld) [#/Vol] 372 10*3/uL 140 - 440 10*3/uL [facility] RBC (Bld) [#/Vol] 2.66 10*6/uL Low 3.80 - 5.2 0 10*6/uL [facility] WBC (Bld) [#/Vol] 15.5 10*3/uL High 3.6 - 10.7 10*3/uL [facility] CBC W Auto Differential pane l (Bld)Ordered By: Andre Ervin on 11-04-2024 Basophils (Bld) [#/Vol] 0.1 10*3/uL 0.0 - 0.2 10*3/uL [facility] Basophils/100 WBC (Bld) 0.8 % 0.0 - 2.0 % [facility] Eosinophils (Bld) [#/Vol] 0.5 10*3/uL 0.0 - 0.5 10*3/uL [facility] Eosinophils/100 WBC (Bld) 2.7 % 0.0 - 6.0 % [facility] Erythrocyte distribution width (RBC) [Ratio] 18.3 % High 11.5 - 15.0 % [facility] Hematocrit (Bld) [Volume fraction] 20.2 % Low 35.0 - 47.0 % [facility] Hemoglobin (Bld) [Mass/Vol] 6.7 g/dL Critically low 11.7 - 16.0 g/dL [facility] Immature granulocytes (Bld) [#/Vol] 0.1 10*3/uL High NINF - 0.1 10*3/uL [facility] Immature granulocytes/100 WBC (Bld) 0.8 % 0.0 - 2.0 % [facility] Interpretation and review of laboratory results Abnormal [facility] Lymphocytes (Bld) [#/Vol] 2.8 10*3/uL 1.0 - 4.3 10*3/uL [facility] Lymphocytes/100 WBC (Bld) 16 % 15.0 - 45.0 % [facility] MCH (RBC) [Entitic mass] 28.5 pg 26.0 - 34.0 pg [facility] MCHC (RBC) [Mass/Vol] 33.2 % 30.5 - 36.0 % [facility] MCV (RBC) [Entitic vol] 86 fL 77.0 - 99.0 fL [facility] Monocytes (Bld) [#/Vol] 1 10*3/uL High 0.0 - 0.9 10*3/uL [facility] Monocytes/100 WBC (Bld) 5.9 % 5.0 - 13.0 % [facility] Neutrophils (Bld) [#/Vol] 12.7 10*3/uL High 1.8 - 7.5 10*3/uL [facility] Neutrophils/100 WBC (Bld) 73.8 % 38.0 - 82.0 % [facility] Nucleated RBC/100 WBC (Bld) [Ratio] 0 % [facility] Platelet mean volume (Bld) [Entitic vol] 10.7 fL 9.0 - 12.7 fL [facility] Platelets (Bld) [#/Vol] 394 10*3/uL 140 - 440 10*3/uL [facility] RBC (Bld) [#/Vol] 2.35 10*6/uL Low 3.80 - 5.2 0 10*6/uL [facility] WBC (Bld) [#/Vol] 17.2 10*3/uL High 3.6 - 10.7 10*3/uL [facility] Laboratory - Chemistry and C hemistry - challengeon 11-04-2024 Glucose [Mass/Vol] 93 mg/dL 70 - 100 mg/dL [facility] Glucose [Mass/Vol] 93 mg/dL 70 - 100 mg/dL [facility] No Panel Informationon 11-04 Interpretation and review of laboratory results Normal [facility] Interpretation and review of laboratory results Normal [facility] Basic metabolic 1998 panelOr dered By: Shauna Ayon on 11-03-2024 Anion gap [Moles/Vol] 12 mmol/L 3 - 13 mmol/L [facility] Calcium [Mass/Vol] 7.4 mg/dL Low 8.8 - 10. 0 mg/dL [facility] Chloride [Moles/Vol] 103 mmol/L 98 - 10 7 mmol/L [facility] CO2 [Moles/Vol] 21 mmol/L Low 23 - 31 mmol/L [facility] Creatinine [Mass/Vol] 2.68 mg/dL High 0.57 - 1.11 mg/dL [facility] GFR/1.73 sq M.predicted (S/P/Bld) [Vol rate/Area] 18.1 mL/min Low - PINF [facility] Glucose [Mass/Vol] 76 mg/dL Low 82 - 115 mg/dL [facility] Interpretation and review of laboratory results Abnormal [facility] Potassium [Moles/Vol] 3.9 mmol/L 3.5 - 5.1 mmol/L [facility] Sodium [Moles/Vol] 136 mmol/L 136 - 145 mmol/L [facility] Urea nitrogen [Mass/Vol] 16 mg/dL 9 - 23 mg/dL [facility] CBC W Auto Differential pane l (Bld)on 11-03-2024 Basophils (Bld) [#/Vol] 0.1 10*3/uL 0.0 - 0.2 10*3/uL [facility] Basophils/100 WBC (Bld) 0.6 % 0.0 - 2.0 % [facility] Eosinophils (Bld) [#/Vol] 0.2 10*3/uL 0.0 - 0.5 10*3/uL [facility] Eosinophils/100 WBC (Bld) 0.9 % 0.0 - 6.0 % [facility] Erythrocyte distribution width (RBC) [Ratio] 18.3 % High 11.5 - 15.0 % [facility] Hematocrit (Bld) [Volume fraction] 18.6 % Low 35.0 - 47.0 % [facility] Hemoglobin (Bld) [Mass/Vol] 6.1 g/dL Critically low 11.7 - 16.0 g/dL [facility] Immature granulocytes (Bld) [#/Vol] 0.1 10*3/uL High NINF - 0.1 10*3/uL [facility] Immature granulocytes/100 WBC (Bld) 0.6 % 0.0 - 2.0 % [facility] Interpretation and review of laboratory results Abnormal [facility] Lymphocytes (Bld) [#/Vol] 3.6 10*3/uL 1.0 - 4.3 10*3/uL [facility] Lymphocytes/100 WBC (Bld) 18.7 % 15.0 - 45.0 % [facility] MCH (RBC) [Entitic mass] 28.9 pg 26.0 - 34.0 pg [facility] MCHC (RBC) [Mass/Vol] 32.8 % 30.5 - 36.0 % [facility] MCV (RBC) [Entitic vol] 88.2 fL 77.0 - 99.0 fL [facility] Monocytes (Bld) [#/Vol] 1.4 10*3/uL High 0.0 - 0.9 10*3/uL [facility] Monocytes/100 WBC (Bld) 7.3 % 5.0 - 13.0 % [facility] Neutrophils (Bld) [#/Vol] 13.8 10*3/uL High 1.8 - 7.5 10*3/uL [facility] Neutrophils/100 WBC (Bld) 71.9 % 38.0 - 82.0 % [facility] Nucleated RBC/100 WBC (Bld) [Ratio] 0 % [facility] Platelet mean volume (Bld) [Entitic vol] 10.7 fL 9.0 - 12.7 fL [facility] Platelets (Bld) [#/Vol] 407 10*3/uL 140 - 440 10*3/uL [facility] RBC (Bld) [#/Vol] 2.11 10*6/uL Low 3.80 - 5.2 0 10*6/uL [facility] WBC (Bld) [#/Vol] 19.2 10*3/uL High 3.6 - 10.7 10*3/uL [facility] Hemoglobin (Bld) [Mass/Vol]O rdered By: Christy Carnes on 11-03-2024 Hematocrit (Bld) [Volume fraction] 26 % Low 35.0 - 47.0 % [facility] Interpretation and review of laboratory results Abnormal [facility] Laboratory - Chemistry and C hemistry - challengeon 11-03-2024 Glucose [Mass/Vol] 101 mg/dL High 70 - 100 mg/dL [facility] Glucose [Mass/Vol] 112 mg/dL High 70 - 100 mg/dL [facility] Glucose [Mass/Vol] 100 mg/dL 70 - 100 mg/dL [facility] Glucose [Mass/Vol] 95 mg/dL 70 - 100 mg/dL [facility] Laboratory - Hematology and Cell countsOrdered By: Christy Carnes on 11-03-2024 Hemoglobin (Bld) [Mass/Vol] 8.6 g/dL Low 11.7 - 16.0 g/dL [facility] No Panel Informationon 11-03 Interpretation and review of laboratory results Abnormal [facility] Interpretation and review of laboratory results Abnormal [facility] Blood Expiration Date [id number] S [facility] Crossmatch interpretation COMP [facility] Dispense Status Transfused [facility] [employer] Product Blood Type 5100 [facility] [employer] PRODUCT CODE [id number] [facility] [employer] PRODUCT CODE [id number] [facility] Unit ABO O [facility] Unit Number [id number] [facility] RH Positive [facility] Volume 227 mL [facility] Volume 285 mL [facility] Interpretation and review of laboratory results Normal [facility] Interpretation and review of laboratory results Normal [facility] Basic metabolic 1998 panelon 11-02-2024 Anion gap [Moles/Vol] 11 mmol/L 3 - 13 mmol/L [facility] Calcium [Mass/Vol] 7.5 mg/dL Low 8.8 - 10. 0 mg/dL [facility] Chloride [Moles/Vol] 105 mmol/L 98 - 10 7 mmol/L [facility] CO2 [Moles/Vol] 20 mmol/L Low 23 - 31 mmol/L [facility] Creatinine [Mass/Vol] 3.99 mg/dL High 0.57 - 1.11 mg/dL [facility] GFR/1.73 sq M.predicted (S/P/Bld) [Vol rate/Area] 11.3 mL/min Low - PINF [facility] Glucose [Mass/Vol] 78 mg/dL Low 82 - 115 mg/dL [facility] Interpretation and review of laboratory results Abnormal [facility] Potassium [Moles/Vol] 5 mmol/L 3.5 - 5.1 mmol/L [facility] Sodium [Moles/Vol] 136 mmol/L 136 - 145 mmol/L [facility] Urea nitrogen [Mass/Vol] 23 mg/dL 9 - 23 mg/dL [facility] Anion gap [Moles/Vol] 12 mmol/L 3 - 13 mmol/L [facility] Calcium [Mass/Vol] 7.7 mg/dL Low 8.8 - 10. 0 mg/dL [facility] Chloride [Moles/Vol] 105 mmol/L 98 - 10 7 mmol/L [facility] CO2 [Moles/Vol] 21 mmol/L Low 23 - 31 mmol/L [facility] Creatinine [Mass/Vol] 4.11 mg/dL High 0.57 - 1.11 mg/dL [facility] GFR/1.73 sq M.predicted (S/P/Bld) [Vol rate/Area] 10.9 mL/min Low - PINF [facility] Glucose [Mass/Vol] 64 mg/dL Low 82 - 115 mg/dL [facility] Interpretation and review of laboratory results Abnormal [facility] Potassium [Moles/Vol] 4.8 mmol/L 3.5 - 5.1 mmol/L [facility] Sodium [Moles/Vol] 138 mmol/L 136 - 145 mmol/L [facility] Urea nitrogen [Mass/Vol] 20 mg/dL 9 - 23 mg/dL [facility] CBC W Auto Differential pane l (Bld)on 11-02-2024 Basophils (Bld) [#/Vol] 0.2 10*3/uL 0.0 - 0.2 10*3/uL [facility] Basophils/100 WBC (Bld) 0.7 % 0.0 - 2.0 % [facility] Eosinophils (Bld) [#/Vol] 0.8 10*3/uL High 0.0 - 0.5 10*3/uL [facility] Eosinophils/100 WBC (Bld) 3.6 % 0.0 - 6.0 % [facility] Erythrocyte distribution width (RBC) [Ratio] 16.3 % High 11.5 - 15.0 % [facility] Hematocrit (Bld) [Volume fraction] 22.9 % Low 35.0 - 47.0 % [facility] Hemoglobin (Bld) [Mass/Vol] 7.4 g/dL Low 11.7 - 16.0 g/dL [facility] Immature granulocytes (Bld) [#/Vol] 0.1 10*3/uL High NINF - 0.1 10*3/uL [facility] Immature granulocytes/100 WBC (Bld) 0.6 % 0.0 - 2.0 % [facility] Interpretation and review of laboratory results Abnormal [facility] Lymphocytes (Bld) [#/Vol] 3.3 10*3/uL 1.0 - 4.3 10*3/uL [facility] Lymphocytes/100 WBC (Bld) 14.8 % Low 15.0 - 45.0 % [facility] MCH (RBC) [Entitic mass] 29.8 pg 26.0 - 34.0 pg [facility] MCHC (RBC) [Mass/Vol] 32.3 % 30.5 - 36.0 % [facility] MCV (RBC) [Entitic vol] 92.3 fL 77.0 - 99.0 fL [facility] Monocytes (Bld) [#/Vol] 1.2 10*3/uL High 0.0 - 0.9 10*3/uL [facility] Monocytes/100 WBC (Bld) 5.6 % 5.0 - 13.0 % [facility] Neutrophils (Bld) [#/Vol] 16.4 10*3/uL High 1.8 - 7.5 10*3/uL [facility] Neutrophils/100 WBC (Bld) 74.7 % 38.0 - 82.0 % [facility] Nucleated RBC/100 WBC (Bld) [Ratio] 0 % [facility] Platelet mean volume (Bld) [Entitic vol] 10.8 fL 9.0 - 12.7 fL [facility] Platelets (Bld) [#/Vol] 530 10*3/uL High 140 - 440 10*3/uL [facility] RBC (Bld) [#/Vol] 2.48 10*6/uL Low 3.80 - 5.2 0 10*6/uL [facility] WBC (Bld) [#/Vol] 21.9 10*3/uL High 3.6 - 10.7 10*3/uL [facility] Hemoglobin (Bld) [Mass/Vol]O rdered By: Summer Gulla-Swaino on 11-02-2024 Hematocrit (Bld) [Volume fraction] 24.1 % Low 35.0 - 47.0 % [facility] Interpretation and review of laboratory results Abnormal [facility] Hemoglobin (Bld) [Mass/Vol]O rdered By: Mihaela Miller on 11-02-2024 Hematocrit (Bld) [Volume fraction] 20 % Low 35.0 - 47.0 % [facility] Interpretation and review of laboratory results Abnormal [facility] Laboratory - Chemistry and C hemistry - challengeon 11-02-2024 Glucose [Mass/Vol] 98 mg/dL 70 - 100 mg/dL [facility] Glucose [Mass/Vol] 103 mg/dL High 70 - 100 mg/dL [facility] Glucose [Mass/Vol] 96 mg/dL 70 - 100 mg/dL [facility] Glucose [Mass/Vol] 73 mg/dL 70 - 100 mg/dL [facility] Laboratory - Hematology and Cell countsOrdered By: Rimma Galloway on 11-02-2024 Hemoglobin (Bld) [Mass/Vol] 8 g/dL Low 11.7 - 16.0 g/dL [facility] Laboratory - Hematology and Cell countsOrdered By: Mihaela Miller on 11-02-2024 Hemoglobin (Bld) [Mass/Vol] 6.3 g/dL Critically low 11.7 - 16.0 g/dL [facility] No Panel Informationon 11-02 Interpretation and review of laboratory results Normal [facility] Interpretation and review of laboratory results Abnormal [facility] Interpretation and review of laboratory results Normal [facility] Interpretation and review of laboratory results Normal [facility] Basic metabolic 1998 panelOr dered By: Tameka Can on 11-01-2024 Anion gap [Moles/Vol] 13 mmol/L 3 - 13 mmol/L [facility] Calcium [Mass/Vol] 7.7 mg/dL Low 8.8 - 10. 0 mg/dL [facility] Chloride [Moles/Vol] 104 mmol/L 98 - 10 7 mmol/L [facility] CO2 [Moles/Vol] 22 mmol/L Low 23 - 31 mmol/L [facility] Creatinine [Mass/Vol] 2.98 mg/dL High 0.57 - 1.11 mg/dL [facility] GFR/1.73 sq M.predicted (S/P/Bld) [Vol rate/Area] 16 mL/min Low - PINF [facility] Glucose [Mass/Vol] 67 mg/dL Low 82 - 115 mg/dL [facility] Interpretation and review of laboratory results Abnormal [facility] Potassium [Moles/Vol] 4.6 mmol/L 3.5 - 5.1 mmol/L [facility] Sodium [Moles/Vol] 139 mmol/L 136 - 145 mmol/L [facility] Urea nitrogen [Mass/Vol] 14 mg/dL 9 - 23 mg/dL [facility] Blood type and Crossmatch pa kojo (Bld)on 11-01-2024 ABO group Nom (Bld) O [facility] Blood group antibody screen GEL Ql Negative [facility] D Ag Ql (RBC) Positive [facility] CBC W Auto Differential pane l (Bld)Ordered By: Mak Hobbs on 11-01-2024 Erythrocyte distribution width (RBC) [Ratio] 16.6 % High 11.5 - 15.0 % [facility] Hematocrit (Bld) [Volume fraction] 25.2 % Low 35.0 - 47.0 % [facility] Hemoglobin (Bld) [Mass/Vol] 8 g/dL Low 11.7 - 16.0 g/dL [facility] Interpretation and review of laboratory results Abnormal [facility] MCH (RBC) [Entitic mass] 29.1 pg 26.0 - 34.0 pg [facility] MCHC (RBC) [Mass/Vol] 31.7 % 30.5 - 36.0 % [facility] MCV (RBC) [Entitic vol] 91.6 fL 77.0 - 99.0 fL [facility] Platelet mean volume (Bld) [Entitic vol] 10.3 fL 9.0 - 12.7 fL [facility] Platelets (Bld) [#/Vol] 557 10*3/uL High 140 - 440 10*3/uL [facility] RBC (Bld) [#/Vol] 2.75 10*6/uL Low 3.80 - 5.2 0 10*6/uL [facility] WBC (Bld) [#/Vol] 20.4 10*3/uL High 3.6 - 10.7 10*3/uL [facility] Laboratory - Chemistry and C hemistry - challengeon 11-01-2024 Glucose [Mass/Vol] 79 mg/dL 70 - 100 mg/dL [facility] Glucose [Mass/Vol] 75 mg/dL 70 - 100 mg/dL [facility] Glucose [Mass/Vol] 79 mg/dL 70 - 100 mg/dL [facility] Glucose [Mass/Vol] 81 mg/dL 70 - 100 mg/dL [facility] Glucose [Mass/Vol] 68 mg/dL Low 70 - 100 mg/dL [facility] Glucose [Mass/Vol] 78 mg/dL 70 - 100 mg/dL [facility] Laboratory - Coagulationon 0 11-01-2024 PT Coag (Bld) [Time] 11.8 s 9.0 - 12.0 s [facility] Laboratory - Hematology and Cell countson 11-01-2024 Basophils (Bld) [#/Vol] 0.2 10*3/uL 0.0 - 0.2 10*3/uL [facility] Basophils/100 WBC (Bld) 1 % 0 - 2 % S [facility] Eosinophils (Bld) [#/Vol] 0.6 10*3/uL High 0.0 - 0.5 10*3/uL [facility] Eosinophils/100 WBC (Bld) 3 % 0 - 6 % [facility] Hypochromia Ql (Bld) Slight Abnormal (none) [facility] Lymphocytes (Bld) [#/Vol] 1.6 10*3/uL 1.0 - 4.3 10*3/uL [facility] Lymphocytes/100 WBC (Bld) 8 % Low 15 - 45 % [facility] Monocytes (Bld) [#/Vol] 0.4 10*3/uL 0.0 - 0.9 10*3/uL [facility] Monocytes/100 WBC (Bld) 2 % Low 5 - 13 % S [facility] Neutrophils (Bld) [#/Vol] 17.5 10*3/uL High 1.8 - 7.5 10*3/uL [facility] Ovalocytes LM Ql (Bld) Slight Abnormal (none) [facility] Poikilocytosis LM Ql (Bld) Slight Abnormal (none) [facility] RBC morphology finding Nom (Bld) abnormal [facility] Segmented neutrophils/100 WBC (Bld) 86 % High 38 - 82 % [facility] [employer] No Panel Informationon 11-01 Interpretation and review of laboratory results Normal [facility] Interpretation and review of laboratory results Normal [facility] CV EPIPHANY [facility] CV CPACS Interpretation and review of laboratory results Normal [facility] Interpretation and review of laboratory results Normal [facility] Interpretation and review of laboratory results Abnormal [facility] Basophils Manual 1 [facility] [employer] Eosinophils Manual 3 High 0 - 1 [facility] [employer] Interpretation and review of laboratory results Abnormal [facility] Lymphocytes Manual 8 [facility] Monocytes Manual 2 [facility] Neutrophils Manual 87 [facility] Interpretation and review of laboratory results Normal [facility] [employer] No Panel InformationOrdered By: Samra Reveles on 11-01-2024 P [place] 53 degrees [facility] Work Phone: KS Interval 107 ms [facility] Work Phone: QRS [place] 10 degrees [employer] Work Phone: QRSD Interval 71 ms [employer] Work Phone: QT Interval 338 ms [employer] Work Phone: QTC Interval 458 ms [facility] [employer] Work Phone: T Wave [place] 161 degrees [facility] Work Phone: [employer] Work Phone: No Panel InformationOrdered By: Jacob Gutiérrez on 11-01-2024 Left AVF Arterial Prox Anastomosis EDV 0 cm/s [employer] Work Phone: Left AVF Arterial Prox Anastomosis PSV 30.4 cm/s [employer] Work Phone: Left AVF AVG Diameter 1 0.6 cm S [employer] Work Phone: Left AVF AVG Diameter 2 0.56 cm S [employer] Work Phone: Left AVF AVG Diameter 3 0.7 cm S [employer] Work Phone: Left AVF AVG Inflow Vol Flow 212.7 mL/min [employer] Work Phone: Left AVF Dist Outflow EDV 0 cm/s [employer] Work Phone: Left AVF Dist Outflow PSV 0 cm/s [employer] Phone: Left AVF Inflow Artery EDV 0 cm/s [employer] Phone: Left AVF Inflow Artery PSV 64.6 cm/s [employer] Phone: Left AVF Mid Outflow EDV 0 cm/s [employer] Phone: Left AVF Mid Outflow PSV 0 cm/s [employer] Phone: Left AVF Prox Outflow EDV 0 cm/s [employer] Phone: Left AVF Prox Outflow PSV 0 cm/s [facility] [employer] Phone: Left AVF Venous Dist Anastomosis EDV 11 cm/s [employer] Phone: Left AVF Venous Dist Anastomosis PSV 21.3 cm/s [employer] Phone: Left AVG AVF Depth 1 0.32 cm [employer] Work Phone: Left AVG AVF Depth 2 0.4 cm [employer] Phone: Left AVG AVF Depth 3 0.27 cm [employer] Phone: PT Coag (Bld) [Time]on 11-01 INR Coag (PPP) [Relative time] 1.1 {INR} 0.9 - 1.1 [facility] Interpretation and review of laboratory results Normal [facility] [employer] Vital signsOrdered By: Samra Reveles on 11-01-2024 Heart rate 110 /min bpm [employer] Phone: XR Chest Single viewon 11-01 [facility] [employer] Radiology Study observation (narrative) [employer] XR Chest Single viewOrdered By: Leonila Seth on 11-01-2024 [employer] Phone: Basic metabolic 1998 panelon 10-31-2024 Anion gap [Moles/Vol] 10 mmol/L 3 - 13 mmol/L [facility] Calcium [Mass/Vol] 8 mg/dL Low 8.8 - 10. 0 mg/dL [facility] Chloride [Moles/Vol] 110 mmol/L High 98 - 10 7 mmol/L [facility] CO2 [Moles/Vol] 23 mmol/L 23 - 31 mmol/L [facility] Creatinine [Mass/Vol] 4.44 mg/dL High 0.57 - 1.11 mg/dL [facility] GFR/1.73 sq M.predicted (S/P/Bld) [Vol rate/Area] 9.9 mL/min Low - PINF [facility] Glucose [Mass/Vol] 73 mg/dL Low 82 - 115 mg/dL [facility] Interpretation and review of laboratory results Abnormal [facility] Potassium [Moles/Vol] 4.4 mmol/L 3.5 - 5.1 mmol/L [facility] Sodium [Moles/Vol] 143 mmol/L 136 - 145 mmol/L [facility] Urea nitrogen [Mass/Vol] 27 mg/dL High 9 - 23 mg/dL [facility] CBC W Auto Differential pane l (Bld)on 10-31-2024 Erythrocyte distribution width (RBC) [Ratio] 16.7 % High 11.5 - 15.0 % [facility] Hematocrit (Bld) [Volume fraction] 26.6 % Low 35.0 - 47.0 % [facility] Hemoglobin (Bld) [Mass/Vol] 8.5 g/dL Low 11.7 - 16.0 g/dL [facility] MCH (RBC) [Entitic mass] 29.2 pg 26.0 - 34.0 pg [facility] MCHC (RBC) [Mass/Vol] 32 % 30.5 - 36.0 % [facility] MCV (RBC) [Entitic vol] 91.4 fL 77.0 - 99.0 fL [facility] Platelet mean volume (Bld) [Entitic vol] 10.7 fL 9.0 - 12.7 fL [facility] Platelets (Bld) [#/Vol] 531 10*3/uL High 140 - 440 10*3/uL [facility] RBC (Bld) [#/Vol] 2.91 10*6/uL Low 3.80 - 5.2 0 10*6/uL [facility] WBC (Bld) [#/Vol] 17.2 10*3/uL High 3.6 - 10.7 10*3/uL [facility] Laboratory - Chemistry and C hemistry - challengeon 10-31-2024 Glucose [Mass/Vol] 85 mg/dL 70 - 100 mg/dL [facility] Glucose [Mass/Vol] 69 mg/dL Low 70 - 100 mg/dL [facility] Glucose [Mass/Vol] 78 mg/dL 70 - 100 mg/dL [facility] Glucose [Mass/Vol] 76 mg/dL 70 - 100 mg/dL [facility] Glucose [Mass/Vol] 82 mg/dL 70 - 100 mg/dL [facility] Laboratory - Hematology and Cell countson 10-31-2024 Anisocytosis Ql (Bld) Slight Abnormal (none) [facility] Basophils (Bld) [#/Vol] 0.2 10*3/uL 0.0 - 0.2 10*3/uL [facility] Basophils/100 WBC (Bld) 1 % 0 - 2 % S [facility] Eosinophils (Bld) [#/Vol] 1.2 10*3/uL High 0.0 - 0.5 10*3/uL [facility] Eosinophils/100 WBC (Bld) 7 % High 0 - 6 % [facility] Lymphocytes (Bld) [#/Vol] 1.5 10*3/uL 1.0 - 4.3 10*3/uL [facility] Lymphocytes/100 WBC (Bld) 9 % Low 15 - 45 % [facility] Monocytes (Bld) [#/Vol] 0.7 10*3/uL 0.0 - 0.9 10*3/uL [facility] Monocytes/100 WBC (Bld) 4 % Low 5 - 13 % S [facility] Neutrophils (Bld) [#/Vol] 13.6 10*3/uL High 1.8 - 7.5 10*3/uL [facility] Ovalocytes LM Ql (Bld) Slight Abnormal (none) [facility] Poikilocytosis LM Ql (Bld) Slight Abnormal (none) [facility] RBC morphology finding Nom (Bld) abnormal [facility] Segmented neutrophils/100 WBC (Bld) 79 % 38 - 82 % [facility] No Panel Informationon 10-31 Interpretation and review of laboratory results Normal [facility] Interpretation and review of laboratory results Abnormal [facility] Interpretation and review of laboratory results Normal [facility] Interpretation and review of laboratory results Normal [facility] Basophils Manual 1 [facility] Eosinophils Manual 7 High 0 - 1 [facility] Interpretation and review of laboratory results Abnormal [facility] Lymphocytes Manual 9 [facility] Monocytes Manual 4 [facility] Neutrophils Manual 79 [facility] Interpretation and review of laboratory results Normal [facility] Bacteria identified Anaer cx Nom (Unsp spec)on 10-30-2024 Interpretation and review of laboratory results Normal [facility] Interpretation and review of laboratory results Normal [facility] Basic metabolic 1998 panelon 10-30-2024 Anion gap [Moles/Vol] 7 mmol/L 3 - 13 mmol/L [facility] Calcium [Mass/Vol] 7.7 mg/dL Low 8.8 - 10. 0 mg/dL [facility] Chloride [Moles/Vol] 110 mmol/L High 98 - 10 7 mmol/L [facility] CO2 [Moles/Vol] 26 mmol/L 23 - 31 mmol/L [facility] Creatinine [Mass/Vol] 3.52 mg/dL High 0.57 - 1.11 mg/dL [facility] GFR/1.73 sq M.predicted (S/P/Bld) [Vol rate/Area] 13.1 mL/min Low - PINF [facility] Glucose [Mass/Vol] 79 mg/dL Low 82 - 115 mg/dL [facility] Interpretation and review of laboratory results Abnormal [facility] Potassium [Moles/Vol] 4.2 mmol/L 3.5 - 5.1 mmol/L [facility] Sodium [Moles/Vol] 143 mmol/L 136 - 145 mmol/L [facility] Urea nitrogen [Mass/Vol] 21 mg/dL 9 - 23 mg/dL [facility] CBC W Auto Differential pane l (Bld)on 10-30-2024 Erythrocyte distribution width (RBC) [Ratio] 16.6 % High 11.5 - 15.0 % [facility] Hematocrit (Bld) [Volume fraction] 26.3 % Low 35.0 - 47.0 % [facility] Hemoglobin (Bld) [Mass/Vol] 8.3 g/dL Low 11.7 - 16.0 g/dL [facility] MCH (RBC) [Entitic mass] 29.1 pg 26.0 - 34.0 pg [facility] MCHC (RBC) [Mass/Vol] 31.6 % 30.5 - 36.0 % [facility] MCV (RBC) [Entitic vol] 92.3 fL 77.0 - 99.0 fL [facility] Platelet mean volume (Bld) [Entitic vol] 10.6 fL 9.0 - 12.7 fL [facility] Platelets (Bld) [#/Vol] 502 10*3/uL High 140 - 440 10*3/uL [facility] RBC (Bld) [#/Vol] 2.85 10*6/uL Low 3.80 - 5.2 0 10*6/uL [facility] WBC (Bld) [#/Vol] 18.2 10*3/uL High 3.6 - 10.7 10*3/uL [facility] Laboratory - Chemistry and C hemistry - challengeon 10-30-2024 Glucose [Mass/Vol] 79 mg/dL 70 - 100 mg/dL [facility] Glucose [Mass/Vol] 83 mg/dL 70 - 100 mg/dL [facility] Glucose [Mass/Vol] 92 mg/dL 70 - 100 mg/dL [facility] Glucose [Mass/Vol] 75 mg/dL 70 - 100 mg/dL [facility] Laboratory - Hematology and Cell countson 10-30-2024 Anisocytosis Ql (Bld) Slight Abnormal (none) [facility] Eosinophils (Bld) [#/Vol] 0.7 10*3/uL High 0.0 - 0.5 10*3/uL [facility] Eosinophils/100 WBC (Bld) 4 % 0 - 6 % [facility] Lymphocytes (Bld) [#/Vol] 0.7 10*3/uL Low 1.0 - 4.3 10*3/uL [facility] Lymphocytes/100 WBC (Bld) 4 % Low 15 - 45 % [facility] Monocytes (Bld) [#/Vol] 0.5 10*3/uL 0.0 - 0.9 10*3/uL [facility] Monocytes/100 WBC (Bld) 3 % Low 5 - 13 % S [facility] Neutrophils (Bld) [#/Vol] 16.2 10*3/uL High 1.8 - 7.5 10*3/uL [facility] RBC morphology finding Nom (Bld) abnormal [facility] Segmented neutrophils/100 WBC (Bld) 89 % High 38 - 82 % [facility] Laboratory - Microbiology an d Antimicrobial susceptibilityon 10-30-2024 Bacteria identified Anaer cx Nom (Unsp spec) No growth at 5 days [facility] Bacteria identified Anaer cx Nom (Unsp spec) No growth at 5 days [facility] No Panel Informationon 10-30 Interpretation and review of laboratory results Normal [facility] Interpretation and review of laboratory results Normal [facility] Interpretation and review of laboratory results Normal [facility] Eosinophils Manual 4 High 0 - 1 [facility] Interpretation and review of laboratory results Abnormal [facility] Lymphocytes Manual 4 [facility] Monocytes Manual 3 [facility] Neutrophils Manual 89 [facility] Interpretation and review of laboratory results Normal [facility] Basic metabolic 1998 panelon 10-29-2024 Anion gap [Moles/Vol] 11 mmol/L 3 - 13 mmol/L [facility] Calcium [Mass/Vol] 7.9 mg/dL Low 8.8 - 10. 0 mg/dL [facility] Chloride [Moles/Vol] 108 mmol/L High 98 - 10 7 mmol/L [facility] CO2 [Moles/Vol] 24 mmol/L 23 - 31 mmol/L [facility] Creatinine [Mass/Vol] 2.73 mg/dL High 0.57 - 1.11 mg/dL [facility] GFR/1.73 sq M.predicted (S/P/Bld) [Vol rate/Area] 17.8 mL/min Low - PINF [facility] Glucose [Mass/Vol] 85 mg/dL 82 - 115 mg/dL [facility] Interpretation and review of laboratory results Abnormal [facility] Potassium [Moles/Vol] 3.9 mmol/L 3.5 - 5.1 mmol/L [facility] Sodium [Moles/Vol] 143 mmol/L 136 - 145 mmol/L [facility] Urea nitrogen [Mass/Vol] 14 mg/dL 9 - 23 mg/dL [facility] CBC W Auto Differential pane l (Bld)on 10-29-2024 Erythrocyte distribution width (RBC) [Ratio] 16.6 % High 11.5 - 15.0 % [facility] Hematocrit (Bld) [Volume fraction] 27.2 % Low 35.0 - 47.0 % [facility] Hemoglobin (Bld) [Mass/Vol] 8.8 g/dL Low 11.7 - 16.0 g/dL [facility] MCH (RBC) [Entitic mass] 29.1 pg 26.0 - 34.0 pg [facility] MCHC (RBC) [Mass/Vol] 32.4 % 30.5 - 36.0 % [facility] MCV (RBC) [Entitic vol] 90.1 fL 77.0 - 99.0 fL [facility] Platelet mean volume (Bld) [Entitic vol] 10.6 fL 9.0 - 12.7 fL [facility] Platelets (Bld) [#/Vol] 464 10*3/uL High 140 - 440 10*3/uL [facility] RBC (Bld) [#/Vol] 3.02 10*6/uL Low 3.80 - 5.2 0 10*6/uL [facility] WBC (Bld) [#/Vol] 22.8 10*3/uL High 3.6 - 10.7 10*3/uL [facility] Laboratory - Chemistry and C hemistry - challengeon 10-29-2024 Glucose [Mass/Vol] 119 mg/dL High 70 - 100 mg/dL [facility] Glucose [Mass/Vol] 76 mg/dL 70 - 100 mg/dL [facility] Glucose [Mass/Vol] 66 mg/dL Low 70 - 100 mg/dL [facility] Glucose [Mass/Vol] 80 mg/dL 70 - 100 mg/dL [facility] Glucose [Mass/Vol] 85 mg/dL 70 - 100 mg/dL [facility] Laboratory - Hematology and Cell countson 10-29-2024 Eosinophils (Bld) [#/Vol] 0.9 10*3/uL High 0.0 - 0.5 10*3/uL [facility] Eosinophils/100 WBC (Bld) 4 % 0 - 6 % [facility] Lymphocytes (Bld) [#/Vol] 1.4 10*3/uL 1.0 - 4.3 10*3/uL [facility] Lymphocytes/100 WBC (Bld) 6 % Low 15 - 45 % [facility] Monocytes (Bld) [#/Vol] 0.9 10*3/uL 0.0 - 0.9 10*3/uL [facility] Monocytes/100 WBC (Bld) 4 % Low 5 - 13 % [facility] Neutrophils (Bld) [#/Vol] 19.6 10*3/uL High 1.8 - 7.5 10*3/uL [facility] RBC morphology finding Nom (Bld) Normal [facility] Segmented neutrophils/100 WBC (Bld) 86 % High 38 - 82 % [facility] No Panel Informationon 10-29 Interpretation and review of laboratory results Abnormal [facility] Interpretation and review of laboratory results Normal [facility] Interpretation and review of laboratory results Abnormal [facility] Eosinophils Manual 4 High 0 - 1 [facility] Interpretation and review of laboratory results Abnormal [facility] Lymphocytes Manual 6 [facility] Monocytes Manual 4 [facility] Neutrophils Manual 87 [facility] Interpretation and review of laboratory results Normal [facility] Interpretation and review of laboratory results Normal [facility] Bacteria identified Cx Nom ( Bld)on 10-28-2024 Interpretation and review of laboratory results Normal [facility] Basic metabolic 1998 panelon 10-28-2024 Anion gap [Moles/Vol] 11 mmol/L 3 - 13 mmol/L [facility] Calcium [Mass/Vol] 8 mg/dL Low 8.8 - 10. 0 mg/dL [facility] Chloride [Moles/Vol] 109 mmol/L High 98 - 10 7 mmol/L [facility] CO2 [Moles/Vol] 24 mmol/L 23 - 31 mmol/L [facility] Creatinine [Mass/Vol] 3.83 mg/dL High 0.57 - 1.11 mg/dL [facility] GFR/1.73 sq M.predicted (S/P/Bld) [Vol rate/Area] 11.8 mL/min Low - PINF [facility] Glucose [Mass/Vol] 87 mg/dL 82 - 115 mg/dL [facility] Interpretation and review of laboratory results Abnormal [facility] Potassium [Moles/Vol] 3.9 mmol/L 3.5 - 5.1 mmol/L [facility] Sodium [Moles/Vol] 144 mmol/L 136 - 145 mmol/L [facility] Urea nitrogen [Mass/Vol] 24 mg/dL High 9 - 23 mg/dL [facility] CBC W Auto Differential pane l (Bld)on 10-28-2024 Erythrocyte distribution width (RBC) [Ratio] 16.4 % High 11.5 - 15.0 % [facility] Hematocrit (Bld) [Volume fraction] 28 % Low 35.0 - 47.0 % [facility] Hemoglobin (Bld) [Mass/Vol] 9.3 g/dL Low 11.7 - 16.0 g/dL [facility] MCH (RBC) [Entitic mass] 29.5 pg 26.0 - 34.0 pg [facility] MCHC (RBC) [Mass/Vol] 33.2 % 30.5 - 36.0 % [facility] MCV (RBC) [Entitic vol] 88.9 fL 77.0 - 99.0 fL [facility] Platelet mean volume (Bld) [Entitic vol] 10.7 fL 9.0 - 12.7 fL [facility] Platelets (Bld) [#/Vol] 460 10*3/uL High 140 - 440 10*3/uL [facility] RBC (Bld) [#/Vol] 3.15 10*6/uL Low 3.80 - 5.2 0 10*6/uL [facility] WBC (Bld) [#/Vol] 26.6 10*3/uL High 3.6 - 10.7 10*3/uL [facility] Laboratory - Chemistry and C hemistry - challengeon 10-28-2024 Glucose [Mass/Vol] 102 mg/dL High 70 - 100 mg/dL [facility] Glucose [Mass/Vol] 101 mg/dL High 70 - 100 mg/dL [facility] Glucose [Mass/Vol] 90 mg/dL 70 - 100 mg/dL [facility] Glucose [Mass/Vol] 98 mg/dL 70 - 100 mg/dL [facility] Glucose [Mass/Vol] 92 mg/dL 70 - 100 mg/dL [facility] Laboratory - Hematology and Cell countson 10-28-2024 Anisocytosis Ql (Bld) Slight Abnormal (none) [facility] Basophils (Bld) [#/Vol] 0.3 10*3/uL High 0.0 - 0.2 10*3/uL [facility] Basophils/100 WBC (Bld) 1 % 0 - 2 % [facility] Eosinophils (Bld) [#/Vol] 0.5 10*3/uL 0.0 - 0.5 10*3/uL [facility] Eosinophils/100 WBC (Bld) 2 % 0 - 6 % [facility] Lymphocytes (Bld) [#/Vol] 1.9 10*3/uL 1.0 - 4.3 10*3/uL [facility] Lymphocytes/100 WBC (Bld) 7 % Low 15 - 45 % [facility] Monocytes (Bld) [#/Vol] 1.1 10*3/uL High 0.0 - 0.9 10*3/uL [facility] Monocytes/100 WBC (Bld) 4 % Low 5 - 13 % [facility] Neutrophils (Bld) [#/Vol] 22.6 10*3/uL High 1.8 - 7.5 10*3/uL [facility] RBC morphology finding Nom (Bld) abnormal [facility] Segmented neutrophils/100 WBC (Bld) 85 % High 38 - 82 % [facility] Laboratory - Microbiology an d Antimicrobial susceptibilityon 10-28-2024 Bacteria identified Cx Nom (Bld) No growth at 5 days [facility] No Panel Informationon 10-28 Interpretation and review of laboratory results Abnormal [facility] Interpretation and review of laboratory results Abnormal [facility] Interpretation and review of laboratory results Normal [facility] Basophils Manual 1 [facility] Eosinophils Manual 2 High 0 - 1 [facility] Interpretation and review of laboratory results Abnormal [facility] Lymphocytes Manual 7 [facility] Monocytes Manual 4 [facility] Neutrophils Manual 88 [facility] Interpretation and review of laboratory results Normal [facility] Interpretation and review of laboratory results Normal [facility] Bacteria identified Cx Nom ( Bld)on 10-27-2024 Interpretation and review of laboratory results Normal [facility] Laboratory - Chemistry and C hemistry - challengeon 10-27-2024 Glucose [Mass/Vol] 100 mg/dL 70 - 100 mg/dL [facility] Glucose [Mass/Vol] 72 mg/dL 70 - 100 mg/dL [facility] Laboratory - Microbiology an d Antimicrobial susceptibilityon 10-27-2024 Bacteria identified Cx Nom (Bld) No growth at 5 days [facility] No Panel Informationon 10-27 Interpretation and review of laboratory results Normal [facility] CBC panel Auto (Bld)on 09-06 Erythrocyte distribution width (RBC) [Ratio] 15.5 % High 11.5 - 14.5 % [facility] Hematocrit (Bld) [Volume fraction] 24.9 % Low 36.0 - 46.0 % [facility] Hemoglobin (Bld) [Mass/Vol] 7.6 g/dL Low 12.0 - 16.0 g/dL [facility] Interpretation and review of laboratory results Abnormal [facility] MCH (RBC) [Entitic mass] 30.8 pg 26.0 - 34.0 pg [facility] MCHC (RBC) [Mass/Vol] 30.5 g/dL Low 32.0 - 36.0 g/dL [facility] MCV (RBC) [Entitic vol] 101 fL High 80 - 100 fL [facility] Nucleated RBC/100 WBC (Bld) [Ratio] 0 % [facility] Platelets (Bld) [#/Vol] 488 10*3/uL High [facility] RBC (Bld) [#/Vol] 2.47 10*6/uL Low [facility] WBC (Bld) [#/Vol] 7.9 10*3/uL [facility] Erythrocyte distribution width (RBC) [Ratio] 15.5 % High 11.5-14.5 [facility] Comment on above: Performed By: #### 2 777-1 #### KELECHI Garcia ([id number]) [facility] ([facility]) [address] [place] [address] Hematocrit (Bld) [Volume fraction] 24.9 % Low 36.0-46.0 [facility] Comment on above: Performed By: #### 2 777-1 #### KELECHI Garcia ([id number]) [facility] ([facility]) [address] [place] [address] Hemoglobin (Bld) [Mass/Vol] 7.6 g/dL Low 12.0-16.0 [facility] Comment on above: Performed By: #### 2 777-1 #### KELECHI Garcia ([id number]) [facility] ([facility]) [id number] [place] [address] 36921 MCH (RBC) [Entitic mass] 30.8 pg Normal 26.0-34.0 [facility] Comment on above: Performed By: #### 2 777-1 #### KELECHI Garcia ([id number]) [facility] ([facility]) [id number] [place] [address] 04735 MCHC (RBC) [Mass/Vol] 30.5 g/dL Low 32.0-36.0 [facility] Comment on above: Performed By: #### 2 777-1 #### KELECHI Garcia ([id number]) [facility] ([facility]) [id number] [place] [address] 46891 MCV (RBC) [Entitic vol] 101 fL High 80-100 [facility] Comment on above: Performed By: #### 2 777-1 #### KELECHI Garcia ([id number]) [facility] ([facility]) [id number] [place] [address] 62925 Nucleated RBC/100 WBC (Bld) [Ratio] 0.0 /100 WBCs Normal 0.0-0.0 [facility] Comment on above: Performed By: #### 2 777-1 #### KELECHI Garcia ([id number]) [facility] ([facility]) [id number] [place] [address] 22137 Platelets (Bld) [#/Vol] 488 x10*3/uL High 150-450 [facility] Comment on above: Performed By: #### 2 777-1 #### KELECHI Garcia ([id number]) [facility] ([facility]) [address] [place] [address] RBC (Bld) [#/Vol] 2.47 x10*6/uL Low 4.00-5.20 [facility] Comment on above: Performed By: #### 2 777-1 #### KELECHI Garcia ([id number]) [facility] ([facility]) [address] [place] [address] WBC (Bld) [#/Vol] 7.9 x10*3/uL Normal 4.4-11.3 [facility] Comment on above: Performed By: #### 2 777-1 #### KELECHI Garcia ([id number]) [facility] ([facility]) [id number] [place] [address]14 Glucose Test strip manual (B ld) [Mass/Vol]on 09-06-2024 Glucose [Mass/Vol] 121 mg/dL High 74 - 99 mg/dL [facility] Interpretation and review of laboratory results Abnormal [facility] Glucose [Mass/Vol] 121 mg/dL High 74-99 [facility] Comment on above: Performed By: #### 2 777-1 #### KELECHI Garcia ([id number]) [facility] ([facility]) [address] [place] [address]394 Renal function 2000 panelon 09-06-2024 Albumin BCP dye [Mass/Vol] 3.2 g/dL Low 3.4 - 5.0 g/dL [facility] Anion gap [Moles/Vol] 16 mmol/L 10 - 2 0 mmol/L [facility] Calcium [Mass/Vol] 8.1 mg/dL Low 8.6 - 10. 6 mg/dL [facility] Chloride [Moles/Vol] 100 mmol/L 98 - 10 7 mmol/L [facility] CO2 [Moles/Vol] 31 mmol/L 21 - 32 mmol/L [facility] Creatinine [Mass/Vol] 5.52 mg/dL High 0.50 - 1.05 mg/dL [facility] GFR/1.73 sq M.predicted among non-blacks MDRD (S/P/Bld) [Vol rate/Area] 8 mL/min/{1.73_m2} Low - PINF [facility] Comment on above: Calculations of katy mated GFR are performed using the 2020 CKD-EPI Study Refit equation without the race variable for the IDMS-Traceable creatinine methods. https://jasn.asnjournals.org/content//ASN.2020 982517 Glucose [Mass/Vol] 118 mg/dL High 74 - 99 mg/dL [facility] Interpretation and review of laboratory results Abnormal [facility] Phosphate [Mass/Vol] 2.2 mg/dL Low 2.5 - 4 .9 mg/dL [facility] Potassium [Moles/Vol] 3.9 mmol/L 3.5 - 5.3 mmol/L [facility] Sodium [Moles/Vol] 143 mmol/L 136 - 145 mmol/L [facility] Urea nitrogen [Mass/Vol] 35 mg/dL High 6 - 23 mg/dL [facility] Albumin BCP dye [Mass/Vol] 3.2 g/dL Low 3.4-5.0 [facility] Comment on above: Performed By: #### 2 777-1 #### KELECHI Garcia ([id number]) [facility] ([facility]) [id number] [place] [address]3367 Anion gap [Moles/Vol] 16 mmol/L Normal 10-20 [facility] Comment on above: Performed By: #### 2 777-1 #### KELECHI VELÁZQUEZ L ([id number]) [facility] ([facility]) [address] [place] [address] Calcium [Mass/Vol] 8.1 mg/dL Low 8.6-10.6 [facility] Comment on above: Performed By: #### 2 777-1 #### KELECHI VELÁZQUEZ L ([id number]) [facility] ([facility]) [id number] [place] [address]341 Chloride [Moles/Vol] 100 mmol/L Normal 98-107 [facility] Comment on above: Performed By: #### 2 777-1 #### KELECHI Garcia ([id number]) [facility] ([facility]) [address] [place] [address] CO2 [Moles/Vol] 31 mmol/L Normal 21-32 [facility] Comment on above: Performed By: #### 2 777-1 #### KELECHI Garcia ([id number]) [facility] ([facility]) [address] [place] [address] Creatinine [Mass/Vol] 5.52 mg/dL High 0.50-1.05 [facility] Comment on above: Performed By: #### 2 777-1 #### KELECHI Garcia ([id number]) [facility] ([facility]) [id number] [place] [address]7640 Glomerular filtration rate/1.73 sq M.predicted 8 mL/min/1.73m*2 Low >60 [facility] Comment on above: Result Comment: Calc ulations of estimated GFR are performed using the 2020 CKD-EPI Study Refit equation without the race variable for the IDMS-Traceable creatinine methods. https://jasn.asnjournals.org/content/early//ASN.2020 544968 Performed By: #### 2 777-1 #### KELECHI Garcia ([id number]) [facility] ([facility]) [address] [place] [address] Glucose [Mass/Vol] 118 mg/dL High 74-99 [facility] Comment on above: Performed By: #### 2 777-1 #### KELECHI Garcia ([id number]) [facility] ([facility]) [address] [place] [address] Phosphate [Mass/Vol] 2.2 mg/dL Low 2.5-4.9 [facility] Comment on above: Performed By: #### 2 777-1 #### KELECHI Garcia ([id number]) [facility] ([facility]) [address] [place] [address] Potassium [Moles/Vol] 3.9 mmol/L Normal 3.5-5.3 [facility] Comment on above: Performed By: #### 2 777-1 #### KELECHI VELÁZQUEZ L ([id number]) [facility] ([facility]) [address] [place] [address] Sodium [Moles/Vol] 143 mmol/L Normal 136-145 [facility] Comment on above: Performed By: #### 2 777-1 #### KELECHI WEBSTERER L ([id number]) [facility] ([facility]) [id number] [place] [address]187 Urea nitrogen [Mass/Vol] 35 mg/dL High 6-23 [facility] Comment on above: Performed By: #### 2 777-1 #### KELECIH VELÁZQUEZ L ([id number]) [facility] ([facility]) [id number] [place] [address]010 CBC W Auto Differential pane l (Bld)on 09-05-2024 Basophils (Bld) [#/Vol] 0.04 10*3/uL [facility] Basophils/100 WBC (Bld) 0.6 % 0.0 - 2.0 % [facility] Eosinophils (Bld) [#/Vol] 0.33 10*3/uL [facility] Eosinophils/100 WBC (Bld) 4.7 % 0.0 - 6.0 % [facility] Erythrocyte distribution width (RBC) [Ratio] 15.1 % High 11.5 - 14.5 % [facility] Hematocrit (Bld) [Volume fraction] 22.5 % Low 36.0 - 46.0 % [facility] Hemoglobin (Bld) [Mass/Vol] 7.2 g/dL Low 12.0 - 16.0 g/dL [facility] Immature granulocytes (Bld) [#/Vol] 0.06 10*3/uL [facility] Immature granulocytes/100 WBC (Bld) 0.9 % 0.0 - 0.9 % [facility] Comment on above: Immature Granulocyte Count (IG) includes promyelocytes, myelocytes and metamyelocytes but does not include bands. Percent differential counts (%) should be interpreted in the context of the absolute cell counts (cells/UL). Interpretation and review of laboratory results Abnormal [facility] Lymphocytes (Bld) [#/Vol] 1 10*3/uL [facility] Lymphocytes/100 WBC (Bld) 14.4 % 13.0 - 44.0 % [facility] MCH (RBC) [Entitic mass] 31 pg 26.0 - 34.0 pg [facility] MCHC (RBC) [Mass/Vol] 32 g/dL 32.0 - 36.0 g/dL [facility] MCV (RBC) [Entitic vol] 97 fL 80 - 100 fL [facility] Monocytes (Bld) [#/Vol] 0.56 10*3/uL [facility] Monocytes/100 WBC (Bld) 8 % 2.0 - 10.0 % [facility] Neutrophils (Bld) [#/Vol] 4.97 10*3/uL [facility] Comment on above: Percent differential counts (%) should be interpreted in the context of the absolute cell counts (cells/uL). Neutrophils/100 WBC (Bld) 71.4 % 40.0 - 80.0 % [facility] Nucleated RBC/100 WBC (Bld) [Ratio] 0 % [facility] Platelets (Bld) [#/Vol] 404 10*3/uL [facility] RBC (Bld) [#/Vol] 2.32 10*6/uL Low [facility] WBC (Bld) [#/Vol] 7 10*3/uL [facility] Basophils (Bld) [#/Vol] 0.04 x10*3/uL Normal 0.00-0.10 [facility] Comment on above: Performed By: #### 2 777-1 #### KELECHI Garcia ([id number]) [facility] ([facility]) [address] [place] [address] Basophils/100 WBC (Bld) 0.6 % Normal 0.0-2.0 [facility] Comment on above: Performed By: #### 2 777-1 #### KELECHI Garcia ([id number]) [facility] ([facility]) [address] [place] [address] 15593 Eosinophils (Bld) [#/Vol] 0.33 x10*3/uL Normal 0.00-0.40 [facility] Comment on above: Performed By: #### 2 777-1 #### KELECHI Garcia ([id number]) [facility] ([facility]) [address] [place] [address] 58205 Eosinophils/100 WBC (Bld) 4.7 % Normal 0.0-6.0 [facility] Comment on above: Performed By: #### 2 777-1 #### KELECHI Garcia ([id number]) [facility] ([facility]) [address] [place] [address] 40915 Erythrocyte distribution width (RBC) [Ratio] 15.1 % High 11.5-14.5 [facility] Comment on above: Performed By: #### 2 777-1 #### KELECHI Garcia ([id number]) [facility] ([facility]) [address] [place] [address] 86250 Hematocrit (Bld) [Volume fraction] 22.5 % Low 36.0-46.0 [facility] Comment on above: Performed By: #### 2 777-1 #### KELECHI Garcia ([id number]) [facility] ([facility]) [address] [place] [address] 50663 Hemoglobin (Bld) [Mass/Vol] 7.2 g/dL Low 12.0-16.0 [facility] Comment on above: Performed By: #### 2 777-1 #### KELECHI Garcia ([id number]) [facility] ([facility]) [address] [place] [address] 57343 Immature granulocytes (Bld) [#/Vol] 0.06 x10*3/uL Normal 0.00-0.50 [facility] Comment on above: Performed By: #### 2 777-1 #### KELECHI Garcia ([id number]) [facility] ([facility]) [id number] [place] [address]93 Immature granulocytes/100 WBC (Bld) 0.9 % Normal 0.0-0.9 [facility] Comment on above: Result Comment: Jannie ture Granulocyte Count (IG) includes promyelocytes, myelocytes and metamyelocytes but does not include bands. Percent differential counts (%) should be interpreted in the context of the absolute cell counts (cells/UL). Performed By: #### 2 777-1 #### KELECHI VELÁZQUEZ L ([id number]) [facility] ([facility]) [address] [place] [address] 83221 Lymphocytes (Bld) [#/Vol] 1.00 x10*3/uL Normal 0.80-3.00 [facility] Comment on above: Performed By: #### 2 777-1 #### KELECHI VELEZMODEBBI L ([id number]) [facility] ([facility]) [id number] [place] [address] 25588 Lymphocytes/100 WBC (Bld) 14.4 % Normal 13.0-44.0 [facility] Comment on above: Performed By: #### 2 777-1 #### KELECHI VELEZMODEBBI L ([id number]) [facility] ([facility]) [address] [place] [address] 67575 MCH (RBC) [Entitic mass] 31.0 pg Normal 26.0-34.0 [facility] Comment on above: Performed By: #### 2 777-1 #### KELECHI VELEZMOZULEIKAER L ([id number]) [facility] ([facility]) [address] [place] [address] 90398 MCHC (RBC) [Mass/Vol] 32.0 g/dL Normal 32.0-36.0 [facility] Comment on above: Performed By: #### 2 777-1 #### KELECHI VELEZMOTZER L ([id number]) [facility] ([facility]) [address] [place] [address] MCV (RBC) [Entitic vol] 97 fL Normal 80-100 [facility] Comment on above: Performed By: #### 2 777-1 #### KELECHI TAOTZER L ([id number]) [facility] ([facility]) [address] [place] [address] 49584 Monocytes (Bld) [#/Vol] 0.56 x10*3/uL Normal 0.05-0.80 [facility] Comment on above: Performed By: #### 2 777-1 #### KELECHI VELEZMOTZER L ([id number]) [facility] ([facility]) [id number] [place] [address] 09274 Monocytes/100 WBC (Bld) 8.0 % Normal 2.0-10.0 [facility] Comment on above: Performed By: #### 2 777-1 #### KELECHI WEBSTERER L ([id number]) [facility] ([facility]) [address] [place] [address] 90895 Neutrophils (Bld) [#/Vol] 4.97 x10*3/uL Normal 1.60-5.50 [facility] Comment on above: Result Comment: Perc ent differential counts (%) should be interpreted in the context of the absolute cell counts (cells/uL). Performed By: #### 2 777-1 #### KELECHI Garcia ([id number]) [facility] ([facility]) [id number] [place] [address] 96399 Neutrophils/100 WBC (Bld) 71.4 % Normal 40.0-80.0 [facility] Comment on above: Performed By: #### 2 777-1 #### KELECHI VELEZMOZULEIKAER L ([id number]) [facility] ([facility]) [address] [place] [address] 11687 Nucleated RBC/100 WBC (Bld) [Ratio] 0.0 /100 WBCs Normal 0.0-0.0 [facility] Comment on above: Performed By: #### 2 777-1 #### KELECHI VELEZMODEBBI L ([id number]) [facility] ([facility]) [address] [place] [address], [place] [address] Platelets (Bld) [#/Vol] 404 x10*3/uL Normal 150-450 [facility] Comment on above: Performed By: #### 2 777-1 #### KELECHI Garcia ([id number]) [facility] ([facility]) [address] [place] [address] RBC (Bld) [#/Vol] 2.32 x10*6/uL Low 4.00-5.20 [facility] Comment on above: Performed By: #### 2 777-1 #### KELECHI VELÁZQUEZ L ([id number]) [facility] ([facility]) [address] [place] [address] WBC (Bld) [#/Vol] 7.0 x10*3/uL Normal 4.4-11.3 [facility] Comment on above: Performed By: #### 2 777-1 #### KELECHI Gacria ([id number]) [facility] ([facility]) [address] [place] [address] Renal function 2000 panelOrd ered By: Alice Juan on 09-05-2024 Albumin BCP dye [Mass/Vol] 2.9 g/dL Low 3.4 - 5.0 g/dL [facility] Anion gap [Moles/Vol] 17 mmol/L 10 - 2 0 mmol/L [facility] Calcium [Mass/Vol] 8 mg/dL Low 8.6 - 10. 6 mg/dL [facility] Chloride [Moles/Vol] 98 mmol/L 98 - 10 7 mmol/L [facility] CO2 [Moles/Vol] 27 mmol/L 21 - 32 mmol/L [facility] Creatinine [Mass/Vol] 7.78 mg/dL High 0.50 - 1.05 mg/dL [facility] GFR/1.73 sq M.predicted among non-blacks MDRD (S/P/Bld) [Vol rate/Area] 5 mL/min/{1.73_m2} Low - PINF [facility] Comment on above: Calculations of katy mated GFR are performed using the 2020 CKD-EPI Study Refit equation without the race variable for the IDMS-Traceable creatinine methods. https://jasn.asnjournals.org/content//ASN.2020 905681 Glucose [Mass/Vol] 92 mg/dL 74 - 99 mg/dL [facility] Interpretation and review of laboratory results Abnormal [facility] Phosphate [Mass/Vol] 2.3 mg/dL Low 2.5 - 4 .9 mg/dL [facility] Potassium [Moles/Vol] 4.5 mmol/L 3.5 - 5.3 mmol/L [facility] Sodium [Moles/Vol] 137 mmol/L 136 - 145 mmol/L [facility] Urea nitrogen [Mass/Vol] 61 mg/dL High 6 - 23 mg/dL [facility] Renal function 2000 panelon 09-05-2024 Albumin BCP dye [Mass/Vol] 2.9 g/dL Low 3.4-5.0 [facility] Comment on above: Performed By: #### 2 777-1 #### KELECHI Garcia ([id number]) [facility] ([facility]) [id number] [place] [address] 66232 Anion gap [Moles/Vol] 17 mmol/L Normal 10-20 [facility] Comment on above: Performed By: #### 2 777-1 #### KELECHI VELÁZQUEZ L ([id number]) [facility] ([facility]) [address] [place] [address] Calcium [Mass/Vol] 8.0 mg/dL Low 8.6-10.6 [facility] Comment on above: Performed By: #### 2 777-1 #### KELECHI VELEZMOTZER L ([id number]) [facility] ([facility]) [id number] [place] [address] 17910 Chloride [Moles/Vol] 98 mmol/L Normal 98-107 [facility] Comment on above: Performed By: #### 2 777-1 #### KELECHI VELEZMOTZER L ([id number]) [facility] ([facility]) [address] [place] [address] CO2 [Moles/Vol] 27 mmol/L Normal 21-32 [facility] Comment on above: Performed By: #### 2 777-1 #### KELECHI Garcia ([id number]) [facility] ([facility]) [address] [place] [address] Creatinine [Mass/Vol] 7.78 mg/dL High 0.50-1.05 [facility] Comment on above: Performed By: #### 2 777-1 #### KELECHI Garcia ([id number]) [facility] ([facility]) [address] [place] [address] Glomerular filtration rate/1.73 sq M.predicted 5 mL/min/1.73m*2 Low >60 [facility] Comment on above: Result Comment: Calc ulations of estimated GFR are performed using the 2020 CKD-EPI Study Refit equation without the race variable for the IDMS-Traceable creatinine methods. https://jasn.asnjournals.org/content/early//ASN.2020 149854 Performed By: #### 2 777-1 #### KELECHI Garcia ([id number]) [facility] ([facility]) [address] [place] [address] Glucose [Mass/Vol] 92 mg/dL Normal 74-99 [facility] Comment on above: Performed By: #### 2 777-1 #### KELECHI Garcia ([id number]) [facility] ([facility]) [address] [place] [address] Phosphate [Mass/Vol] 2.3 mg/dL Low 2.5-4.9 [facility] Comment on above: Performed By: #### 2 777-1 #### KELECHI Garcia ([id number]) [facility] ([facility]) [address] [place] [address] Potassium [Moles/Vol] 4.5 mmol/L Normal 3.5-5.3 [facility] Comment on above: Performed By: #### 2 777-1 #### KELECHI WEBSTERER L ([id number]) [facility] ([facility]) [address] [place] [address] Sodium [Moles/Vol] 137 mmol/L Normal 136-145 [facility] Comment on above: Performed By: #### 2 777-1 #### KELECHI VELEZMOTZER L ([id number]) [facility] ([facility]) [address] [place] [address] Urea nitrogen [Mass/Vol] 61 mg/dL High 6-23 [facility] Comment on above: Performed By: #### 2 777-1 #### KELECHI WEBSTERER L ([id number]) [facility] ([facility]) [id number] [place] [address]812 Basic metabolic 2000 panelon 09-04-2024 Anion gap [Moles/Vol] 16 mmol/L 10 - 2 0 mmol/L [facility] Calcium [Mass/Vol] 8.7 mg/dL 8.6 - 10. 6 mg/dL [facility] Chloride [Moles/Vol] 94 mmol/L Low 98 - 10 7 mmol/L [facility] CO2 [Moles/Vol] 30 mmol/L 21 - 32 mmol/L [facility] Creatinine [Mass/Vol] 6.79 mg/dL High 0.50 - 1.05 mg/dL [facility] GFR/1.73 sq M.predicted among non-blacks MDRD (S/P/Bld) [Vol rate/Area] 6 mL/min/{1.73_m2} Low - PINF [facility] Comment on above: Calculations of katy mated GFR are performed using the 2020 CKD-EPI Study Refit equation without the race variable for the IDMS-Traceable creatinine methods. https://jasn.asnjournals.org/content/early//ASN.2020 486148 Glucose [Mass/Vol] 171 mg/dL High 74 - 99 mg/dL [facility] Interpretation and review of laboratory results Abnormal [facility] Potassium [Moles/Vol] 4.1 mmol/L 3.5 - 5.3 mmol/L [facility] Sodium [Moles/Vol] 136 mmol/L 136 - 145 mmol/L [facility] Urea nitrogen [Mass/Vol] 58 mg/dL High 6 - 23 mg/dL [facility] Anion gap [Moles/Vol] 16 mmol/L Normal 10-20 [facility] Comment on above: Performed By: #### 2 777-1 #### KELECHI Garcia ([id number]) [facility] ([facility]) [id number] [place] [address] 23857 Calcium [Mass/Vol] 8.7 mg/dL Normal 8.6-10.6 [facility] Comment on above: Performed By: #### 2 777-1 #### KELECHI VELÁZQUEZ L ([id number]) [facility] ([facility]) [id number] [place] [address] 67022 Chloride [Moles/Vol] 94 mmol/L Low 98-107 [facility] Comment on above: Performed By: #### 2 777-1 #### KELECHI VELEZMODEBBI L ([id number]) [facility] ([facility]) [id number] [place] [address] CO2 [Moles/Vol] 30 mmol/L Normal 21-32 [facility] Comment on above: Performed By: #### 2 777-1 #### KELECHI VELÁZQUEZ L ([id number]) [facility] ([facility]) [id number] [place] [address] 83553 Creatinine [Mass/Vol] 6.79 mg/dL High 0.50-1.05 [facility] Comment on above: Performed By: #### 2 777-1 #### KELECHI TAOTZZAMZAM L ([id number]) [facility] ([facility]) [id number] [place] [address] 77483 Glomerular filtration rate/1.73 sq M.predicted 6 mL/min/1.73m*2 Low >60 [facility] Comment on above: Result Comment: Calc ulations of estimated GFR are performed using the 2020 CKD-EPI Study Refit equation without the race variable for the IDMS-Traceable creatinine methods. https://jasn.asnjournals.org/content//ASN.2020 087217 Performed By: #### 2 777-1 #### KELECHI Garcia ([id number]) [facility] ([facility]) [id number] [place] [address] 81225 Glucose [Mass/Vol] 171 mg/dL High 74-99 [facility] Comment on above: Performed By: #### 2 777-1 #### KELECHI VELÁZQUEZ L ([id number]) [facility] ([facility]) [address] [place] [address]258 Potassium [Moles/Vol] 4.1 mmol/L Normal 3.5-5.3 [facility] Comment on above: Performed By: #### 2 777-1 #### KELECHI VELÁZQUEZ L ([id number]) [facility] ([facility]) [id number] [place] [address] 42980 Sodium [Moles/Vol] 136 mmol/L Normal 136-145 [facility] Comment on above: Performed By: #### 2 777-1 #### KELECHI WEBSTERER L ([id number]) [facility] ([facility]) [address] [place] [address] 45824 Urea nitrogen [Mass/Vol] 58 mg/dL High 6-23 [facility] Comment on above: Performed By: #### 2 777-1 #### KELECHI TAOTZER L ([id number]) [facility] ([facility]) [address] [place] [address] 56227 CBC W Auto Differential pane l (Bld)Ordered By: Cheryl Brooks on 09-04-2024 Basophils (Bld) [#/Vol] [facility] Basophils/100 WBC (Bld) [facility] Eosinophils (Bld) [#/Vol] [facility] Eosinophils/100 WBC (Bld) [facility] Erythrocyte distribution width (RBC) [Ratio] [facility] Comment on above: qns Hematocrit (Bld) [Volume fraction] [facility] Comment on above: qns Hemoglobin (Bld) [Mass/Vol] [facility] Comment on above: qns Immature granulocytes/100 WBC (Bld) [facility] Comment on above: qns Lymphocytes (Bld) [#/Vol] [facility] Lymphocytes/100 WBC (Bld) [facility] MCHC (RBC) [Mass/Vol] [facility] Comment on above: qns MCV (RBC) [Entitic vol] [facility] Comment on above: qns Monocytes (Bld) [#/Vol] [facility] Monocytes/100 WBC (Bld) [facility] Neutrophils (Bld) [#/Vol] [facility] Neutrophils/100 WBC (Bld) [facility] Platelets (Bld) [#/Vol] [facility] Comment on above: qns RBC (Bld) [#/Vol] [facility] Comment on above: qns WBC (Bld) [#/Vol] [facility] Comment on above: qns [facility] CBC W Auto Differential pane l (Bld)on 09-04-2024 Basophils (Bld) [#/Vol] Normal [facility] Comment on above: Performed By: #### 1 9123-9 #### KELECHI Garcia ([id number]) [facility] ([facility]) [address] [place] [address] 56386 Basophils/100 WBC (Bld) Normal [facility] Comment on above: Performed By: #### 1 9123-9 #### KELECHI Garcia ([id number]) [facility] ([facility]) [address] [place] [address] 90168 Eosinophils (Bld) [#/Vol] Normal [facility] Comment on above: Performed By: #### 1 9123-9 #### KELECHI Garcia ([id number]) [facility] ([facility]) [id number] [place] [address] 58494 Eosinophils/100 WBC (Bld) [facility] Comment on above: Performed By: #### 1 9123-9 #### KELECHI Garcia ([id number]) [facility] ([facility]) [address] [place] [address] 90356 Erythrocyte distribution width (RBC) [Ratio] [facility] Comment on above: Result Comment: qns Performed By: #### 1 9123-9 #### KELECHI Garcia ([id number]) [facility] ([facility]) [address] [place] [address] 58550 Hematocrit (Bld) [Volume fraction] [facility] Comment on above: Result Comment: qns Performed By: #### 1 9123-9 #### KELECHI Garcia ([id number]) [facility] ([facility]) [address] [place] [address] 02950 Hemoglobin (Bld) [Mass/Vol] [facility] Comment on above: Result Comment: qns Performed By: #### 1 9123-9 #### KELECHI Garcia ([id number]) [facility] ([facility]) [address] [place] [address] 66793 Immature granulocytes/100 WBC (Bld) [facility] Comment on above: Result Comment: qns Performed By: #### 1 9123-9 #### KELECHI Garcia ([id number]) [facility] ([facility]) [address] [place] [address] 82351 Lymphocytes (Bld) [#/Vol] [facility] Comment on above: Performed By: #### 1 9123-9 #### KELECHI Garcia ([id number]) [facility] ([facility]) [address] [place] [address] 28906 Lymphocytes/100 WBC (Bld) [facility] Comment on above: Performed By: #### 1 9123-9 #### KELECHI Garcia ([id number]) [facility] ([facility]) [address] [place] [address] MCHC (RBC) [Mass/Vol] Normal [facility] Comment on above: Result Comment: qns Performed By: #### 1 9123-9 #### KELECHI Garcia ([id number]) [facility]) [address] [place] [address] 69030 MCV (RBC) [Entitic vol] Normal [facility] Comment on above: Result Comment: qns Performed By: #### 1 9123-9 #### KELECHI Garcia ([id number]) [facility] ([facility]) [id number] [place] [address] 66031 Monocytes (Bld) [#/Vol] Normal [facility] Comment on above: Performed By: #### 1 9123-9 #### KELECHI Garcia ([id number]) [facility] ([facility]) [id number] [place] [address] 39040 Monocytes/100 WBC (Bld) Normal [facility] Comment on above: Performed By: #### 1 9123-9 #### KELECHI VELÁZQUEZ L ([id number]) [facility] ([facility]) [id number] [place] [address] 61708 Neutrophils (Bld) [#/Vol] [facility] Comment on above: Performed By: #### 1 9123-9 #### KELECHI Garcia ([id number]) [facility] ([facility]) [id number] [place] [address] 78034 Neutrophils/100 WBC (Bld) [facility] Comment on above: Performed By: #### 1 9123-9 #### KELECHI VELÁZQUEZ L ([id number]) [facility] ([facility]) [id number] [place] [address] 03427 Platelets (Bld) [#/Vol] Normal [facility] Comment on above: Result Comment: qns Performed By: #### 1 9123-9 #### KELECHI VELÁZQUEZ L ([id number]) [facility] ([facility]) [address] [place] [address] RBC (Bld) [#/Vol] Normal [facility] Comment on above: Result Comment: qns Performed By: #### 1 9123-9 #### KELECHI Garcia ([id number]) [facility] ([facility]) [address] [place] [address] WBC (Bld) [#/Vol] Normal [facility] Comment on above: Result Comment: qns Performed By: #### 1 9123-9 #### KELECHI VELÁZQUEZ L ([id number]) [facility] ([facility]) [address] [place] [address] Basic metabolic 2000 panelon 09-03-2024 Anion gap [Moles/Vol] 12 mmol/L 10 - 2 0 mmol/L [facility] Calcium [Mass/Vol] 7.8 mg/dL Low 8.6 - 10. 6 mg/dL [facility] Chloride [Moles/Vol] 98 mmol/L 98 - 10 7 mmol/L [facility] CO2 [Moles/Vol] 33 mmol/L High 21 - 32 mmol/L [facility] Creatinine [Mass/Vol] 4.58 mg/dL High 0.50 - 1.05 mg/dL [facility] GFR/1.73 sq M.predicted among non-blacks MDRD (S/P/Bld) [Vol rate/Area] 10 mL/min/{1.73_m2} Low - PINF [facility] Comment on above: Calculations of katy mated GFR are performed using the 2020 CKD-EPI Study Refit equation without the race variable for the IDMS-Traceable creatinine methods. https://jasn.asnjournals.org/content/early//ASN.2020 283327 Glucose [Mass/Vol] 87 mg/dL 74 - 99 mg/dL [facility] Interpretation and review of laboratory results Abnormal [facility] Potassium [Moles/Vol] 4.3 mmol/L 3.5 - 5.3 mmol/L [facility] Sodium [Moles/Vol] 139 mmol/L 136 - 145 mmol/L [facility] Urea nitrogen [Mass/Vol] 28 mg/dL High 6 - 23 mg/dL [facility] Anion gap [Moles/Vol] 12 mmol/L Normal 10-20 [facility] Comment on above: Performed By: #### 1 9123-9 #### KELECHI VELÁZQUEZ L ([id number]) [facility] ([facility]) [address] [place] [address] Calcium [Mass/Vol] 7.8 mg/dL Low 8.6-10.6 [facility] Comment on above: Performed By: #### 1 9123-9 #### KELECHI VELÁZQUEZ L ([id number]) [facility] ([facility]) [address] [place] [address] Chloride [Moles/Vol] 98 mmol/L Normal 98-107 [facility] Comment on above: Performed By: #### 1 9123-9 #### KELECHI VELÁZQUEZ L ([id number]) [facility] ([facility]) [address] [place] [address] CO2 [Moles/Vol] 33 mmol/L High 21-32 [facility] Comment on above: Performed By: #### 1 9123-9 #### KELECHI VELÁZQUEZ L ([id number]) [facility] ([facility]) [address] [place] [address] Creatinine [Mass/Vol] 4.58 mg/dL High 0.50-1.05 [facility] Comment on above: Performed By: #### 1 9123-9 #### KELECHI VELÁZQUEZ L ([id number]) [facility] ([facility]) [id number] [place] [address] 45306 Glomerular filtration rate/1.73 sq M.predicted 10 mL/min/1.73m*2 Low >60 [facility] Comment on above: Result Comment: Calc ulations of estimated GFR are performed using the 2020 CKD-EPI Study Refit equation without the race variable for the IDMS-Traceable creatinine methods. https://jasn.asnjournals.org/content/early/ASN.2020 475749 Performed By: #### 1 9123-9 #### KELECHI VELÁZQUEZ L ([id number]) [facility] ([facility]) [id number] [place] [address] 37472 Glucose [Mass/Vol] 87 mg/dL Normal 74-99 [facility] Comment on above: Performed By: #### 1 9123-9 #### KELECHI VELÁZQUEZ L ([id number]) [facility] ([facility]) [id number] [place] [address] 56154 Potassium [Moles/Vol] 4.3 mmol/L Normal 3.5-5.3 [facility] Comment on above: Performed By: #### 1 9123-9 #### KELECHI VELÁZQUEZ L ([id number]) [facility] ([facility]) [id number] [place] [address] 31627 Sodium [Moles/Vol] 139 mmol/L Normal 136-145 [facility] Comment on above: Performed By: #### 1 9123-9 #### KELECHI VELÁZQUEZ L ([id number]) [facility] ([facility]) [id number] [place] [address] 18039 Urea nitrogen [Mass/Vol] 28 mg/dL High 6-23 [facility] Comment on above: Performed By: #### 1 9123-9 #### KELECHI VELÁZQUEZ L ([id number]) [facility] ([facility]) [address] [place] [address] 16566 CBC W Auto Differential pane l (Bld)on 09-03-2024 Basophils (Bld) [#/Vol] 0.09 10*3/uL [facility] Basophils/100 WBC (Bld) 0.9 % 0.0 - 2.0 % [facility] Eosinophils (Bld) [#/Vol] 0.53 10*3/uL High [facility] Eosinophils/100 WBC (Bld) 5.5 % 0.0 - 6.0 % [facility] Erythrocyte distribution width (RBC) [Ratio] 15.2 % High 11.5 - 14.5 % [facility] Hematocrit (Bld) [Volume fraction] 26 % Low 36.0 - 46.0 % [facility] Hemoglobin (Bld) [Mass/Vol] 8 g/dL Low 12.0 - 16.0 g/dL [facility] Immature granulocytes (Bld) [#/Vol] 0.05 10*3/uL [facility] Immature granulocytes/100 WBC (Bld) 0.5 % 0.0 - 0.9 % [facility] Comment on above: Immature Granulocyte Count (IG) includes promyelocytes, myelocytes and metamyelocytes but does not include bands. Percent differential counts (%) should be interpreted in the context of the absolute cell counts (cells/UL). Interpretation and review of laboratory results Abnormal [facility] Lymphocytes (Bld) [#/Vol] 1.69 10*3/uL [facility] Lymphocytes/100 WBC (Bld) 17.5 % 13.0 - 44.0 % [facility] MCH (RBC) [Entitic mass] 30.1 pg 26.0 - 34.0 pg [facility] MCHC (RBC) [Mass/Vol] 30.8 g/dL Low 32.0 - 36.0 g/dL [facility] MCV (RBC) [Entitic vol] 98 fL 80 - 100 fL [facility] Monocytes (Bld) [#/Vol] 0.89 10*3/uL High [facility] Monocytes/100 WBC (Bld) 9.2 % 2.0 - 10.0 % [facility] Neutrophils (Bld) [#/Vol] 6.38 10*3/uL High [facility] Comment on above: Percent differential counts (%) should be interpreted in the context of the absolute cell counts (cells/uL). Neutrophils/100 WBC (Bld) 66.4 % 40.0 - 80.0 % [facility] Nucleated RBC/100 WBC (Bld) [Ratio] 0 % [facility] Platelets (Bld) [#/Vol] 429 10*3/uL [facility] RBC (Bld) [#/Vol] 2.66 10*6/uL Low [facility] WBC (Bld) [#/Vol] 9.6 10*3/uL [facility] Basophils (Bld) [#/Vol] 0.09 x10*3/uL Normal 0.00-0.10 [facility] Comment on above: Performed By: #### 1 9123-9 #### KELECHI Garcia ([id number]) [facility]) [id number] [place] [address] 75437 Basophils/100 WBC (Bld) 0.9 % Normal 0.0-2.0 [facility] Comment on above: Performed By: #### 1 9123-9 #### KELECHI Garcia ([id number]) [facility] ([facility]) [address] [place] [address] 39515 Eosinophils (Bld) [#/Vol] 0.53 x10*3/uL High 0.00-0.40 [facility] Comment on above: Performed By: #### 1 9123-9 #### KELECHI Garcia ([id number]) [facility] ([facility]) [address] [place] [address] 77098 Eosinophils/100 WBC (Bld) 5.5 % Normal 0.0-6.0 [facility] Comment on above: Performed By: #### 1 9123-9 #### KELECHI Garcia ([id number]) [facility] ([facility]) [address] [place] [address] 55544 Erythrocyte distribution width (RBC) [Ratio] 15.2 % High 11.5-14.5 [facility] Comment on above: Performed By: #### 1 9123-9 #### KELECHI Garcia ([id number]) [facility] ([facility]) [address] [place] [address] 36797 Hematocrit (Bld) [Volume fraction] 26.0 % Low 36.0-46.0 [facility] Comment on above: Performed By: #### 1 9123-9 #### KELECHI Garcia ([id number]) [facility] ([facility]) [address] [place] [address] 38912 Hemoglobin (Bld) [Mass/Vol] 8.0 g/dL Low 12.0-16.0 [facility] Comment on above: Performed By: #### 1 9123-9 #### KELECHI Garcia ([id number]) [facility] ([facility]) [address] [place] [address] [id number] Immature granulocytes (Bld) [#/Vol] 0.05 x10*3/uL Normal 0.00-0.50 [facility] Comment on above: Performed By: #### 1 9123-9 #### KELECHI Garcia ([id number]) [facility] ([facility]) [address] [place] [id number] Immature granulocytes/100 WBC (Bld) 0.5 % Normal 0.0-0.9 [facility] Comment on above: Result Comment: Jannie ture Granulocyte Count (IG) includes promyelocytes, myelocytes and metamyelocytes but does not include bands. Percent differential counts (%) should be interpreted in the context of the absolute cell counts (cells/UL). Performed By: #### 1 9123-9 #### KELECHI Garcia ([id number]) [facility] ([facility]) [id number] [place] [address] [id number] Lymphocytes (Bld) [#/Vol] 1.69 x10*3/uL Normal 0.80-3.00 [facility] Comment on above: Performed By: #### 1 9123-9 #### KELECHI Garcia ([id number]) [facility] [facility] ([facility]) [id number] [place] [address] 90700 Lymphocytes/100 WBC (Bld) 17.5 % Normal 13.0-44.0 [facility] Comment on above: Performed By: #### 1 9123-9 #### KELECHI Garcia ([id number]) [facility] ([facility]) [id number] [place] [address] 05543 MCH (RBC) [Entitic mass] 30.1 pg Normal 26.0-34.0 [facility] Comment on above: Performed By: #### 1 9123-9 #### KELECHI Garcia ([id number]) [facility] ([facility]) [address] [place] [address] MCHC (RBC) [Mass/Vol] 30.8 g/dL Low 32.0-36.0 [facility] Comment on above: Performed By: #### 1 9123-9 #### KELECHI Garcia ([id number]) [facility] ([facility]) [address] [place] [address] MCV (RBC) [Entitic vol] 98 fL Normal 80-100 [facility] Comment on above: Performed By: #### 1 9123-9 #### KELECHI Garcia ([id number]) [facility] ([facility]) [id number] [place] [address] 10838 Monocytes (Bld) [#/Vol] 0.89 x10*3/uL High 0.05-0.80 [facility] Comment on above: Performed By: #### 1 9123-9 #### KELECHI Garcia ([id number]) [facility] ([facility]) [address] [place] [address] Monocytes/100 WBC (Bld) 9.2 % Normal 2.0-10.0 [facility] Comment on above: Performed By: #### 1 9123-9 #### KELECHI Garcia ([id number]) [facility] ([facility]) [address] [place] [address] Neutrophils (Bld) [#/Vol] 6.38 x10*3/uL High 1.60-5.50 [facility] Comment on above: Result Comment: Perc ent differential counts (%) should be interpreted in the context of the absolute cell counts (cells/uL). Performed By: #### 1 9123-9 #### KELECHI Garcia ([id number]) [facility] ([facility]) [address] [place] [address] Neutrophils/100 WBC (Bld) 66.4 % Normal 40.0-80.0 [facility] Comment on above: Performed By: #### 1 9123-9 #### KELECHI Garcia ([id number]) [facility] ([facility]) [id number] [place] [address] 13882 Nucleated RBC/100 WBC (Bld) [Ratio] 0.0 /100 WBCs Normal 0.0-0.0 [facility] Comment on above: Performed By: #### 1 9123-9 #### KELECHI Garcia ([id number]) [facility] ([facility]) [id number] [place] [address] 11969 Platelets (Bld) [#/Vol] 429 x10*3/uL Normal 150-450 [facility] Comment on above: Performed By: #### 1 9123-9 #### KELECHI Garcia ([id number]) [facility] ([facility]) [address] [place] [address] 32644 RBC (Bld) [#/Vol] 2.66 x10*6/uL Low 4.00-5.20 [facility] Comment on above: Performed By: #### 1 9123-9 #### KELECHI Garcia ([id number]) [facility] ([facility]) [address] [place] [address] 89859 WBC (Bld) [#/Vol] 9.6 x10*3/uL Normal 4.4-11.3 [facility] Comment on above: Performed By: #### 1 9123-9 #### KELECHI Garcia ([id number]) [facility] ([facility]) [address] [place] [address] 98013 Basic metabolic 2000 panelon 09-02-2024 Anion gap [Moles/Vol] 17 mmol/L 10 - 2 0 mmol/L [facility] Calcium [Mass/Vol] 7.3 mg/dL Low 8.6 - 10. 6 mg/dL [facility] Chloride [Moles/Vol] 98 mmol/L 98 - 10 7 mmol/L [facility] CO2 [Moles/Vol] 29 mmol/L 21 - 32 mmol/L [facility] Creatinine [Mass/Vol] 6.49 mg/dL High 0.50 - 1.05 mg/dL [facility] GFR/1.73 sq M.predicted among non-blacks MDRD (S/P/Bld) [Vol rate/Area] 6 mL/min/{1.73_m2} Low - PINF [facility] Comment on above: Calculations of ktay mated GFR are performed using the 2020 CKD-EPI Study Refit equation without the race variable for the IDMS-Traceable creatinine methods. https://jasn.asnjournals.org/content/early//ASN.2020 487005 Glucose [Mass/Vol] 88 mg/dL 74 - 99 mg/dL [facility] Interpretation and review of laboratory results Abnormal [facility] Potassium [Moles/Vol] 4.4 mmol/L 3.5 - 5.3 mmol/L [facility] Sodium [Moles/Vol] 140 mmol/L 136 - 145 mmol/L [facility] Urea nitrogen [Mass/Vol] 38 mg/dL High 6 - 23 mg/dL [facility] Anion gap [Moles/Vol] 17 mmol/L Normal 10-20 [facility] Comment on above: Performed By: #### 1 9123-9 #### KELECHI Garcia ([id number]) [facility] ([facility]) [id number] [place] [address] 29606 Calcium [Mass/Vol] 7.3 mg/dL Low 8.6-10.6 [facility] Comment on above: Performed By: #### 1 9123-9 #### KELECHI Garcia ([id number]) [facility] ([facility]) [address] [place] [address] Chloride [Moles/Vol] 98 mmol/L Normal 98-107 [facility] Comment on above: Performed By: #### 1 9123-9 #### KELECHI Garcia ([id number]) [facility] ([facility]) [address] [place] [address] 72002 CO2 [Moles/Vol] 29 mmol/L Normal 21-32 [facility] Comment on above: Performed By: #### 1 9123-9 #### KELECHI Garcia ([id number]) [facility] ([facility]) [address] [place] [address] Creatinine [Mass/Vol] 6.49 mg/dL High 0.50-1.05 [facility] Comment on above: Performed By: #### 1 9123-9 #### KELECHI Garcia ([id number]) [facility] ([facility]) [address] [place] [address] 65359 Glomerular filtration rate/1.73 sq M.predicted 6 mL/min/1.73m*2 Low >60 [facility] Comment on above: Result Comment: Calc ulations of estimated GFR are performed using the 2020 CKD-EPI Study Refit equation without the race variable for the IDMS-Traceable creatinine methods. https://jasn.asnjournals.org/content/early//ASN.2020 168000 Performed By: #### 1 9123-9 #### KELECHI VELÁZQUEZ L ([id number]) [facility] ([facility]) [address] [place] [address] 14924 Glucose [Mass/Vol] 88 mg/dL Normal 74-99 [facility] Comment on above: Performed By: #### 1 9123-9 #### KELECHI VELÁZQUEZ L ([id number]) [facility] ([facility]) [id number] [place] [address] 83676 Potassium [Moles/Vol] 4.4 mmol/L Normal 3.5-5.3 [facility] Comment on above: Performed By: #### 1 9123-9 #### KELECHI VELÁZQUEZ L ([id number]) [facility] ([facility]) [id number] [place] [address] 94951 Sodium [Moles/Vol] 140 mmol/L Normal 136-145 [facility] Comment on above: Performed By: #### 1 9123-9 #### KELECHI VELÁZQUEZ L ([id number]) [facility] ([facility]) [id number] [place] [address] 56294 Urea nitrogen [Mass/Vol] 38 mg/dL High 6-23 [facility] Comment on above: Performed By: #### 1 9123-9 #### KELECHI Garcia ([id number]) [facility] ([facility]) [address] [place] [address] CBC W Auto Differential pane l (Bld)on 09-02-2024 Basophils (Bld) [#/Vol] 0.11 10*3/uL High [facility] Basophils/100 WBC (Bld) 1.2 % 0.0 - 2.0 % [facility] Eosinophils (Bld) [#/Vol] 0.4 10*3/uL [facility] Eosinophils/100 WBC (Bld) 4.3 % 0.0 - 6.0 % [facility] Erythrocyte distribution width (RBC) [Ratio] 15.5 % High 11.5 - 14.5 % [facility] Hematocrit (Bld) [Volume fraction] 28.8 % Low 36.0 - 46.0 % [facility] Hemoglobin (Bld) [Mass/Vol] 8.8 g/dL Low 12.0 - 16.0 g/dL [facility] Immature granulocytes (Bld) [#/Vol] 0.06 10*3/uL [facility] Immature granulocytes/100 WBC (Bld) 0.6 % 0.0 - 0.9 % [facility] Comment on above: Immature Granulocyte Count (IG) includes promyelocytes, myelocytes and metamyelocytes but does not include bands. Percent differential counts (%) should be interpreted in the context of the absolute cell counts (cells/UL). Interpretation and review of laboratory results Abnormal [facility] Lymphocytes (Bld) [#/Vol] 1.07 10*3/uL [facility] Lymphocytes/100 WBC (Bld) 11.5 % 13.0 - 44.0 % [facility] MCH (RBC) [Entitic mass] 31 pg 26.0 - 34.0 pg [facility] MCHC (RBC) [Mass/Vol] 30.6 g/dL Low 32.0 - 36.0 g/dL [facility] MCV (RBC) [Entitic vol] 101 fL High 80 - 100 fL [facility] Monocytes (Bld) [#/Vol] 0.79 10*3/uL [facility] Monocytes/100 WBC (Bld) 8.5 % 2.0 - 10.0 % [facility] Neutrophils (Bld) [#/Vol] 6.86 10*3/uL High [facility] Comment on above: Percent differential counts (%) should be interpreted in the context of the absolute cell counts (cells/uL). Neutrophils/100 WBC (Bld) 73.9 % 40.0 - 80.0 % [facility] Nucleated RBC/100 WBC (Bld) [Ratio] 0 % [facility] Platelets (Bld) [#/Vol] 430 10*3/uL [facility] RBC (Bld) [#/Vol] 2.84 10*6/uL Low [facility] WBC (Bld) [#/Vol] 9.3 10*3/uL [facility] Basophils (Bld) [#/Vol] 0.11 x10*3/uL High 0.00-0.10 [facility] Comment on above: Performed By: #### 1 9123-9 #### KELECHI Garcia ([id number]) [facility] ([facility]) [address] [place] [address] Basophils/100 WBC (Bld) 1.2 % Normal 0.0-2.0 [facility] Comment on above: Performed By: #### 1 9123-9 #### KELECHI Garcia ([id number]) [facility] ([facility]) [address] [place] [address] Eosinophils (Bld) [#/Vol] 0.40 x10*3/uL Normal 0.00-0.40 [facility] Comment on above: Performed By: #### 1 9123-9 #### KELECHI Garcia ([id number]) [facility] ([facility]) [address] [place] [address] Eosinophils/100 WBC (Bld) 4.3 % Normal 0.0-6.0 [facility] Comment on above: Performed By: #### 1 9123-9 #### KELECHI Garcia ([id number]) [facility] ([facility]) [address] [place] [address] 58013 Erythrocyte distribution width (RBC) [Ratio] 15.5 % High 11.5-14.5 [facility] Comment on above: Performed By: #### 1 9123-9 #### KELECHI Garcia ([id number]) [facility] ([facility]) [address] [place] [address] 88317 Hematocrit (Bld) [Volume fraction] 28.8 % Low 36.0-46.0 [facility] Comment on above: Performed By: #### 1 9123-9 #### KELECHI Garcia ([id number]) [facility] ([facility]) [address] [place] [address] 79008 Hemoglobin (Bld) [Mass/Vol] 8.8 g/dL Low 12.0-16.0 [facility] Comment on above: Performed By: #### 1 9123-9 #### KELECHI Garcia ([id number]) [facility] ([facility]) [address] [place] [address] 65237 Immature granulocytes (Bld) [#/Vol] 0.06 x10*3/uL Normal 0.00-0.50 [facility] Comment on above: Performed By: #### 1 9123-9 #### KELECHI Garcia ([id number]) [facility] ([facility]) [address] [place] [address] 84895 Immature granulocytes/100 WBC (Bld) 0.6 % Normal 0.0-0.9 [facility] Comment on above: Result Comment: Jannie ture Granulocyte Count (IG) includes promyelocytes, myelocytes and metamyelocytes but does not include bands. Percent differential counts (%) should be interpreted in the context of the absolute cell counts (cells/UL). Performed By: #### 1 9123-9 #### KELECHI Garcia ([id number]) [facility] ([facility]) [address] [place] [address] Lymphocytes (Bld) [#/Vol] 1.07 x10*3/uL Normal 0.80-3.00 [facility] Comment on above: Performed By: #### 1 9123-9 #### KELECHI Garcia ([id number]) [facility] ([facility]) [id number] [place] [address] 98565 Lymphocytes/100 WBC (Bld) 11.5 % Normal 13.0-44.0 [facility] Comment on above: Performed By: #### 1 9123-9 #### KELECHI Garcia ([id number]) [facility] ([facility]) [address] [place] [address] 37562 MCH (RBC) [Entitic mass] 31.0 pg Normal 26.0-34.0 [facility] Comment on above: Performed By: #### 1 9123-9 #### KELECHI Garcia ([id number]) [facility] ([facility]) [address] [place] [address] 69545 MCHC (RBC) [Mass/Vol] 30.6 g/dL Low 32.0-36.0 [facility] Comment on above: Performed By: #### 1 9123-9 #### KELECHI Garcia ([id number]) [facility] ([facility]) [id number] [place] [address] 90921 MCV (RBC) [Entitic vol] 101 fL High 80-100 [facility] Comment on above: Performed By: #### 1 9123-9 #### KELECHI Garcia ([id number]) [facility] ([facility]) [address] [place] [address] 84267 Monocytes (Bld) [#/Vol] 0.79 x10*3/uL Normal 0.05-0.80 [facility] Comment on above: Performed By: #### 1 9123-9 #### KELECHI Garcia ([id number]) [facility] ([facility]) [id number] [place] [address] 48669 Monocytes/100 WBC (Bld) 8.5 % Normal 2.0-10.0 [facility] Comment on above: Performed By: #### 1 9123-9 #### KELECHI Garcia ([id number]) [facility] ([facility]) [id number] [place] [address] 87984 Neutrophils (Bld) [#/Vol] 6.86 x10*3/uL High 1.60-5.50 [facility] Comment on above: Result Comment: Perc ent differential counts (%) should be interpreted in the context of the absolute cell counts (cells/uL). Performed By: #### 1 9123-9 #### KELECHI Garcia ([id number]) [facility] ([facility]) [address] [place] [address] 65671 Neutrophils/100 WBC (Bld) 73.9 % Normal 40.0-80.0 [facility] Comment on above: Performed By: #### 1 9123-9 #### KELECHI Garcia ([id number]) [facility] ([facility]) [id number] [place] [address] 70051 Nucleated RBC/100 WBC (Bld) [Ratio] 0.0 /100 WBCs Normal 0.0-0.0 [facility] Comment on above: Performed By: #### 1 9123-9 #### KELECHI Garcia ([id number]) [facility] ([facility]) [id number] [place] [address] 19128 Platelets (Bld) [#/Vol] 430 x10*3/uL Normal 150-450 [facility] Comment on above: Performed By: #### 1 9123-9 #### KELECHI Garcia ([id number]) [facility] ([facility]) [id number] [place] [address] 02593 RBC (Bld) [#/Vol] 2.84 x10*6/uL Low 4.00-5.20 [facility] Comment on above: Performed By: #### 1 9123-9 #### KELECHI Garcia ([id number]) [facility] ([facility]) [address] [place] [address] [place] [address] WBC (Bld) [#/Vol] 9.3 x10*3/uL Normal 4.4-11.3 [facility] Comment on above: Performed By: #### 1 9123-9 #### KELECHI Garcia ([id number]) [facility] ([facility]) [address] [place] [address] Basophils (Bld) [#/Vol] 0.13 10*3/uL High [facility] Basophils/100 WBC (Bld) 1.5 % 0.0 - 2.0 % [facility] Eosinophils (Bld) [#/Vol] 0.42 10*3/uL High [facility] Eosinophils/100 WBC (Bld) 4.8 % 0.0 - 6.0 % [facility] Erythrocyte distribution width (RBC) [Ratio] 15.3 % High 11.5 - 14.5 % [facility] Hematocrit (Bld) [Volume fraction] 27.3 % Low 36.0 - 46.0 % [facility] Hemoglobin (Bld) [Mass/Vol] 8.5 g/dL Low 12.0 - 16.0 g/dL [facility] Immature granulocytes (Bld) [#/Vol] 0.04 10*3/uL [facility] Immature granulocytes/100 WBC (Bld) 0.5 % 0.0 - 0.9 % [facility] Comment on above: Immature Granulocyte Count (IG) includes promyelocytes, myelocytes and metamyelocytes but does not include bands. Percent differential counts (%) should be interpreted in the context of the absolute cell counts (cells/UL). Interpretation and review of laboratory results Abnormal [facility] Lymphocytes (Bld) [#/Vol] 1.29 10*3/uL [facility] Lymphocytes/100 WBC (Bld) 14.6 % 13.0 - 44.0 % [facility] MCH (RBC) [Entitic mass] 30.6 pg 26.0 - 34.0 pg [facility] MCHC (RBC) [Mass/Vol] 31.1 g/dL Low 32.0 - 36.0 g/dL [facility] MCV (RBC) [Entitic vol] 98 fL 80 - 100 fL [facility] Monocytes (Bld) [#/Vol] 0.77 10*3/uL [facility] Monocytes/100 WBC (Bld) 8.7 % 2.0 - 10.0 % [facility] Neutrophils (Bld) [#/Vol] 6.16 10*3/uL High [facility] Comment on above: Percent differential counts (%) should be interpreted in the context of the absolute cell counts (cells/uL). Neutrophils/100 WBC (Bld) 69.9 % 40.0 - 80.0 % [facility] Nucleated RBC/100 WBC (Bld) [Ratio] 0 % [facility] Platelets (Bld) [#/Vol] 399 10*3/uL [facility] RBC (Bld) [#/Vol] 2.78 10*6/uL Low [facility] WBC (Bld) [#/Vol] 8.8 10*3/uL [facility] Basophils (Bld) [#/Vol] 0.13 x10*3/uL High 0.00-0.10 [facility] Comment on above: Performed By: #### 1 9123-9 #### KELECHI Garcia ([id number]) [facility] ([facility]) [address] [place] [address] Basophils/100 WBC (Bld) 1.5 % Normal 0.0-2.0 [facility] Comment on above: Performed By: #### 1 9123-9 #### KELECHI Garcia ([id number]) [facility] ([facility]) [address] [place] [address] Eosinophils (Bld) [#/Vol] 0.42 x10*3/uL High 0.00-0.40 [facility] Comment on above: Performed By: #### 1 9123-9 #### KELECHI Garcia ([id number]) [facility] ([facility]) [address] [place] [address] Eosinophils/100 WBC (Bld) 4.8 % Normal 0.0-6.0 [facility] Comment on above: Performed By: #### 1 9123-9 #### KELECHI Garcia ([id number]) [facility] ([facility]) [address] [place] [address] 05869 Erythrocyte distribution width (RBC) [Ratio] 15.3 % High 11.5-14.5 [facility] Comment on above: Performed By: #### 1 9123-9 #### KELECHI Garcia ([id number]) [facility] ([facility]) [address] [place] [address] 28141 Hematocrit (Bld) [Volume fraction] 27.3 % Low 36.0-46.0 [facility] Comment on above: Performed By: #### 1 9123-9 #### KELECHI Garcia ([id number]) [facility] ([facility]) [address] [place] [address] 75988 Hemoglobin (Bld) [Mass/Vol] 8.5 g/dL Low 12.0-16.0 [facility] Comment on above: Performed By: #### 1 9123-9 #### KELECHI Garcia ([id number]) [facility] ([facility]) [address] [place] [address] 93063 Immature granulocytes (Bld) [#/Vol] 0.04 x10*3/uL Normal 0.00-0.50 [facility] Comment on above: Performed By: #### 1 9123-9 #### KELECHI Garcia ([id number]) [facility] ([facility]) [address] [place] [address] 38756 Immature granulocytes/100 WBC (Bld) 0.5 % Normal 0.0-0.9 [facility] Comment on above: Result Comment: Jannie ture Granulocyte Count (IG) includes promyelocytes, myelocytes and metamyelocytes but does not include bands. Percent differential counts (%) should be interpreted in the context of the absolute cell counts (cells/UL). Performed By: #### 1 9123-9 #### KELECHI Garcia ([id number]) [facility] ([facility]) [id number] [place] [address] 79790 Lymphocytes (Bld) [#/Vol] 1.29 x10*3/uL Normal 0.80-3.00 [facility] Comment on above: Performed By: #### 1 9123-9 #### KELECHI Garcia ([id number]) [facility] ([facility]) [address] [place] [address] 68225 Lymphocytes/100 WBC (Bld) 14.6 % Normal 13.0-44.0 [facility] Comment on above: Performed By: #### 1 9123-9 #### KELECHI Garcia ([id number]) [facility] ([facility]) [address] [place] [address] 47661 MCH (RBC) [Entitic mass] 30.6 pg Normal 26.0-34.0 [facility] Comment on above: Performed By: #### 1 9123-9 #### KELECHI Garcia ([id number]) [facility] ([facility]) [address] [place] [address] [id number] MCHC (RBC) [Mass/Vol] 31.1 g/dL Low 32.0-36.0 [facility] Comment on above: Performed By: #### 1 9123-9 #### KELECHI Garcia ([id number]) [facility] ([facility]) [address] [place] [address] 13482 MCV (RBC) [Entitic vol] 98 fL Normal 80-100 [facility] Comment on above: Performed By: #### 1 9123-9 #### KELECHI Garcia ([id number]) [facility] ([facility]) [address] [place] [address] [id number] Monocytes (Bld) [#/Vol] 0.77 x10*3/uL Normal 0.05-0.80 [facility] Comment on above: Performed By: #### 1 9123-9 #### KELECHI Garcia ([id number]) [facility] ([facility]) [address] [place] [address] [id number] Monocytes/100 WBC (Bld) 8.7 % Normal 2.0-10.0 [facility] Comment on above: Performed By: #### 1 9123-9 #### KELECHI Garcia ([id number]) [facility] ([facility]) [address] [place] [address] Neutrophils (Bld) [#/Vol] 6.16 x10*3/uL High 1.60-5.50 [facility] Comment on above: Result Comment: Perc ent differential counts (%) should be interpreted in the context of the absolute cell counts (cells/uL). Performed By: #### 1 9123-9 #### KELECHI Garcia ([id number]) [facility] ([facility]) [id number] [place] [address] 71619 Neutrophils/100 WBC (Bld) 69.9 % Normal 40.0-80.0 [facility] Comment on above: Performed By: #### 1 9123-9 #### KELECHI Garcia ([id number]) [facility] ([facility]) [id number] [place] [address] 07736 Nucleated RBC/100 WBC (Bld) [Ratio] 0.0 /100 WBCs Normal 0.0-0.0 [facility] Comment on above: Performed By: #### 1 9123-9 #### KELECHI Garcia ([id number]) [facility] ([facility]) [address] [place] [address] Platelets (Bld) [#/Vol] 399 x10*3/uL Normal 150-450 [facility] Comment on above: Performed By: #### 1 9123-9 #### KELECHI Garcia ([id number]) [facility] ([facility]) [address] [place] [address] RBC (Bld) [#/Vol] 2.78 x10*6/uL Low 4.00-5.20 [facility] Comment on above: Performed By: #### 1 9123-9 #### KELECHI Garcia ([id number]) [facility] ([facility]) [address] [place] [address] WBC (Bld) [#/Vol] 8.8 x10*3/uL Normal 4.4-11.3 [facility] Comment on above: Performed By: #### 1 9123-9 #### KELECHI Garcia ([id number]) [facility] ([facility]) [address] [place] [address] Basophils (Bld) [#/Vol] 0.11 10*3/uL High [facility] Basophils/100 WBC (Bld) 1.1 % 0.0 - 2.0 % [facility] Eosinophils (Bld) [#/Vol] 0.49 10*3/uL High [facility] Eosinophils/100 WBC (Bld) 5 % 0.0 - 6.0 % [facility] Erythrocyte distribution width (RBC) [Ratio] 15.6 % High 11.5 - 14.5 % [facility] Hematocrit (Bld) [Volume fraction] 24 % Low 36.0 - 46.0 % [facility] Hemoglobin (Bld) [Mass/Vol] 7.7 g/dL Low 12.0 - 16.0 g/dL [facility] Immature granulocytes (Bld) [#/Vol] 0.04 10*3/uL [facility] Immature granulocytes/100 WBC (Bld) 0.4 % 0.0 - 0.9 % [facility] Comment on above: Immature Granulocyte Count (IG) includes promyelocytes, myelocytes and metamyelocytes but does not include bands. Percent differential counts (%) should be interpreted in the context of the absolute cell counts (cells/UL). Interpretation and review of laboratory results Abnormal [facility] Lymphocytes (Bld) [#/Vol] 1.7 10*3/uL [facility] Lymphocytes/100 WBC (Bld) 17.5 % 13.0 - 44.0 % [facility] MCH (RBC) [Entitic mass] 30.6 pg 26.0 - 34.0 pg [facility] MCHC (RBC) [Mass/Vol] 32.1 g/dL 32.0 - 36.0 g/dL [facility] MCV (RBC) [Entitic vol] 95 fL 80 - 100 fL [facility] Monocytes (Bld) [#/Vol] 0.79 10*3/uL [facility] Monocytes/100 WBC (Bld) 8.1 % 2.0 - 10.0 % [facility] Neutrophils (Bld) [#/Vol] 6.58 10*3/uL High [facility] Comment on above: Percent differential counts (%) should be interpreted in the context of the absolute cell counts (cells/uL). Neutrophils/100 WBC (Bld) 67.9 % 40.0 - 80.0 % [facility] Nucleated RBC/100 WBC (Bld) [Ratio] 0 % [facility] Platelets (Bld) [#/Vol] 392 10*3/uL [facility] RBC (Bld) [#/Vol] 2.52 10*6/uL Low [facility] WBC (Bld) [#/Vol] 9.7 10*3/uL [facility] Basophils (Bld) [#/Vol] 0.11 x10*3/uL High 0.00-0.10 [facility] Comment on above: Performed By: #### 1 9123-9 #### KELECHI Garcia ([id number]) [facility] ([facility]) [address] [place] [address] Basophils/100 WBC (Bld) 1.1 % Normal 0.0-2.0 [facility] Comment on above: Performed By: #### 1 9123-9 #### KELECHI Garcia ([id number]) [facility] ([facility]) [address] [place] [address] Eosinophils (Bld) [#/Vol] 0.49 x10*3/uL High 0.00-0.40 [facility] Comment on above: Performed By: #### 1 9123-9 #### KELECHI Garcia ([id number]) [facility] ([facility]) [address] [place] [address] Eosinophils/100 WBC (Bld) 5.0 % Normal 0.0-6.0 [facility] Comment on above: Performed By: #### 1 9123-9 #### KELECHI Garcia ([id number]) [facility] ([facility]) [address] [place] [address] Erythrocyte distribution width (RBC) [Ratio] 15.6 % High 11.5-14.5 [facility] Comment on above: Performed By: #### 1 9123-9 #### KELECHI Garcia ([id number]) [facility] ([facility]) [address] [place] [address] 86817 Hematocrit (Bld) [Volume fraction] 24.0 % Low 36.0-46.0 [facility] Comment on above: Performed By: #### 1 9123-9 #### KELECHI Garcia ([id number]) [facility] ([facility]) [address] [place] [address] 32402 Hemoglobin (Bld) [Mass/Vol] 7.7 g/dL Low 12.0-16.0 [facility] Comment on above: Performed By: #### 1 9123-9 #### KELECHI Garcia ([id number]) [facility] ([facility]) [address] [place] [address]89 Immature granulocytes (Bld) [#/Vol] 0.04 x10*3/uL Normal 0.00-0.50 [facility] Comment on above: Performed By: #### 1 9123-9 #### KELECHI Garcia ([id number]) [facility] ([facility]) [address] [place] [address] 27707 Immature granulocytes/100 WBC (Bld) 0.4 % Normal 0.0-0.9 [facility] Comment on above: Result Comment: Jannie ture Granulocyte Count (IG) includes promyelocytes, myelocytes and metamyelocytes but does not include bands. Percent differential counts (%) should be interpreted in the context of the absolute cell counts (cells/UL). Performed By: #### 1 9123-9 #### KELECHI Garcia ([id number]) [facility] ([facility]) [id number] [place] [address] Lymphocytes (Bld) [#/Vol] 1.70 x10*3/uL Normal 0.80-3.00 [facility] Comment on above: Performed By: #### 1 9123-9 #### KELECHI Garcia ([id number]) [facility] ([facility]) [address] [place] [address] 10636 Lymphocytes/100 WBC (Bld) 17.5 % Normal 13.0-44.0 [facility] Comment on above: Performed By: #### 1 9123-9 #### KELECHI Garcia ([id number]) [facility] ([facility]) [address] [place] [address] 27674 MCH (RBC) [Entitic mass] 30.6 pg Normal 26.0-34.0 [facility] Comment on above: Performed By: #### 1 9123-9 #### KELECHI Garcia ([id number]) [facility] ([facility]) [address] [place] [address] 14518 MCHC (RBC) [Mass/Vol] 32.1 g/dL Normal 32.0-36.0 [facility] Comment on above: Performed By: #### 1 9123-9 #### KELECHI Garcia ([id number]) [facility] ([facility]) [address] [place] [address] 08185 MCV (RBC) [Entitic vol] 95 fL Normal 80-100 [facility] Comment on above: Performed By: #### 1 9123-9 #### KELECHI Garcia ([id number]) [facility] ([facility]) [address] [place] [address] 37350 Monocytes (Bld) [#/Vol] 0.79 x10*3/uL Normal 0.05-0.80 [facility] Comment on above: Performed By: #### 1 9123-9 #### KELECHI Garcia ([id number]) [facility] ([facility]) [address] [place] [address] 41738 Monocytes/100 WBC (Bld) 8.1 % Normal 2.0-10.0 [facility] Comment on above: Performed By: #### 1 9123-9 #### KELECHI Garcia ([id number]) [facility] ([facility]) [address] [place] [address] Neutrophils (Bld) [#/Vol] 6.58 x10*3/uL High 1.60-5.50 [facility] Comment on above: Result Comment: Perc ent differential counts (%) should be interpreted in the context of the absolute cell counts (cells/uL). Performed By: #### 1 9123-9 #### KELECHI Garcia ([id number]) [facility] ([facility]) [address] [place] [address] 38492 Neutrophils/100 WBC (Bld) 67.9 % Normal 40.0-80.0 [facility] Comment on above: Performed By: #### 1 9123-9 #### KELECHI Garcia ([id number]) [facility] ([facility]) [id number] [place] [address] 77790 Nucleated RBC/100 WBC (Bld) [Ratio] 0.0 /100 WBCs Normal 0.0-0.0 [facility] Comment on above: Performed By: #### 1 9123-9 #### KELECHI Garcia ([id number]) [facility] ([facility]) [address] [place] [address] Platelets (Bld) [#/Vol] 392 x10*3/uL Normal 150-450 [facility] Comment on above: Performed By: #### 1 9123-9 #### KELECHI Garcia ([id number]) [facility] ([facility]) [address] [place] [address] RBC (Bld) [#/Vol] 2.52 x10*6/uL Low 4.00-5.20 [facility] Comment on above: Performed By: #### 1 9123-9 #### KELECHI Garcia ([id number]) [facility] ([facility]) [address] [place] [address] WBC (Bld) [#/Vol] 9.7 x10*3/uL Normal 4.4-11.3 [facility] Comment on above: Performed By: #### 1 9123-9 #### KELECHI Garcia ([id number]) [facility] ([facility]) [address] [place] [address] 70624 Prepare RBC: 1 Unitson 09-02 Blood Expiration Date 09/08/2024 11:59:00 PM EDT [facility] Dispense Status PT [facility] PRODUCT BLOOD TYPE 5[address] [facility] PRODUCT CODE [id number] [facility] Unit ABO O [facility] Unit Number [id number] [facility] Unit RH Positive [facility] UNIT VOLUME 350 [facility] XM INTEP COMP [facility] Basic metabolic 2000 panelon 09-01-2024 Anion gap [Moles/Vol] 15 mmol/L 10 - 2 0 mmol/L [facility] Calcium [Mass/Vol] 7.7 mg/dL Low 8.6 - 10. 6 mg/dL [facility] Chloride [Moles/Vol] 97 mmol/L Low 98 - 10 7 mmol/L [facility] CO2 [Moles/Vol] 33 mmol/L High 21 - 32 mmol/L [facility] Creatinine [Mass/Vol] 4.41 mg/dL High 0.50 - 1.05 mg/dL [facility] GFR/1.73 sq M.predicted among non-blacks MDRD (S/P/Bld) [Vol rate/Area] 10 mL/min/{1.73_m2} Low - PINF [facility] Comment on above: Calculations of katy mated GFR are performed using the 2020 CKD-EPI Study Refit equation without the race variable for the IDMS-Traceable creatinine methods. https://jasn.asnjournals.org/content//ASN.2020 806268 Glucose [Mass/Vol] 92 mg/dL 74 - 99 mg/dL [facility] Potassium [Moles/Vol] 3.7 mmol/L 3.5 - 5.3 mmol/L [facility] Sodium [Moles/Vol] 141 mmol/L 136 - 145 mmol/L [facility] Urea nitrogen [Mass/Vol] 23 mg/dL 6 - 23 mg/dL [facility] Anion gap [Moles/Vol] 15 mmol/L Normal 10-20 [facility] Comment on above: Performed By: #### 5 7021-8 #### KELECHI Garcia ([id number]) [facility] ([facility]) [id number] [place] [address] 75449 Calcium [Mass/Vol] 7.7 mg/dL Low 8.6-10.6 [facility] Comment on above: Performed By: #### 5 7021-8 #### KELECHI Garcia ([id number]) [facility] ([facility]) [id number] [place] [address] 96301 Chloride [Moles/Vol] 97 mmol/L Low 98-107 [facility] Comment on above: Performed By: #### 5 7021-8 #### KELECHI VELÁZQUEZ L ([id number]) [facility] ([facility]) [id number] [place] [address] 13357 CO2 [Moles/Vol] 33 mmol/L High 21-32 [facility] Comment on above: Performed By: #### 5 7021-8 #### KELECHI VELÁZQUEZ L ([id number]) [facility] ([facility]) [address] [place] [address] 50331 Creatinine [Mass/Vol] 4.41 mg/dL High 0.50-1.05 [facility] Comment on above: Performed By: #### 5 7021-8 #### KELECHI VELÁZQUEZ L ([id number]) [facility] ([facility]) [id number] [place] [address] 11017 Glomerular filtration rate/1.73 sq M.predicted 10 mL/min/1.73m*2 Low >60 [facility] Comment on above: Result Comment: Calc ulations of estimated GFR are performed using the 2020 CKD-EPI Study Refit equation without the race variable for the IDMS-Traceable creatinine methods. https://jasn.asnjournals.org/content/early/ASN.2020 714915 Performed By: #### 5 7021-8 #### KELECHI Garcia ([id number]) [facility] ([facility]) [address] [place] [address] Glucose [Mass/Vol] 92 mg/dL Normal 74-99 [facility] Comment on above: Performed By: #### 5 7021-8 #### KELECHI Garcia ([id number]) [facility] ([facility]) [id number] [place] [address] 94523 Potassium [Moles/Vol] 3.7 mmol/L Normal 3.5-5.3 [facility] Comment on above: Performed By: #### 5 7021-8 #### KELECHI VELÁZQUEZ L ([id number]) [facility] ([facility]) [id number] [place] [address] 47286 Sodium [Moles/Vol] 141 mmol/L Normal 136-145 [facility] Comment on above: Performed By: #### 5 7021-8 #### KELECHI VELÁZQUEZ L ([id number]) [facility] ([facility]) [id number] [place] [address] 37033 Urea nitrogen [Mass/Vol] 23 mg/dL Normal 6-23 [facility] Comment on above: Performed By: #### 5 7021-8 #### KELECHI VELÁZQUEZ L ([id number]) [facility] ([facility]) [id number] [place] [address] 14806 CBC W Auto Differential pane l (Bld)on 09-01-2024 Basophils (Bld) [#/Vol] 0.12 x10*3/uL High 0.00-0.10 [facility] Comment on above: Performed By: #### 5 7021-8 #### KELECHI VELÁZQUEZ L ([id number]) [facility] ([facility]) [id number] [place] [address] 40523 Basophils/100 WBC (Bld) 1.0 % Normal 0.0-2.0 [facility] Comment on above: Performed By: #### 5 7021-8 #### KELECHI Garcia ([id number]) [facility] ([facility]) [address] [place] [address] 45847 Eosinophils (Bld) [#/Vol] 0.23 x10*3/uL Normal 0.00-0.40 [facility] Comment on above: Performed By: #### 5 7021-8 #### KELECHI Garcia ([id number]) [facility] ([facility]) [address] [place] [address] 13645 Eosinophils/100 WBC (Bld) 1.9 % Normal 0.0-6.0 [facility] Comment on above: Performed By: #### 5 7021-8 #### KELECHI Garcia ([id number]) [facility] ([facility]) [address] [place] [address] 83160 Erythrocyte distribution width (RBC) [Ratio] 15.7 % High 11.5-14.5 [facility] Comment on above: Performed By: #### 5 7021-8 #### KELECHI Garcia ([id number]) [facility] ([facility]) [address] [place] [address] 36483 Hematocrit (Bld) [Volume fraction] 21.1 % Low 36.0-46.0 [facility] Comment on above: Performed By: #### 5 7021-8 #### KELECHI Garcia ([id number]) [facility] ([facility]) [address] [place] [address] 38348 Hemoglobin (Bld) [Mass/Vol] 6.8 g/dL Low 12.0-16.0 [facility] Comment on above: Performed By: #### 5 7021-8 #### KELECHI Garcia ([id number]) [facility] ([facility]) [address] [place] [address] 44218 Immature granulocytes (Bld) [#/Vol] 0.04 x10*3/uL Normal 0.00-0.50 [facility] Comment on above: Performed By: #### 5 7021-8 #### KELECHI Garcia ([id number]) [facility] ([facility]) [id number] [place] [address] 52228 Immature granulocytes/100 WBC (Bld) 0.3 % Normal 0.0-0.9 [facility] Comment on above: Result Comment: Jannie ture Granulocyte Count (IG) includes promyelocytes, myelocytes and metamyelocytes but does not include bands. Percent differential counts (%) should be interpreted in the context of the absolute cell counts (cells/UL). Performed By: #### 5 7021-8 #### KELECHI Gracia ([id number]) [facility] ([facility]) [address] [place] [address] 79440 Lymphocytes (Bld) [#/Vol] 1.00 x10*3/uL Normal 0.80-3.00 [facility] Comment on above: Performed By: #### 5 7021-8 #### KELECHI Garcia ([id number]) [facility] ([facility]) [address] [place] [address] 84219 Lymphocytes/100 WBC (Bld) 8.1 % Normal 13.0-44.0 [facility] Comment on above: Performed By: #### 5 7021-8 #### KELECHI Garcia ([id number]) [facility] ([facility]) [address] [place] [address] 15749 MCH (RBC) [Entitic mass] 30.4 pg Normal 26.0-34.0 [facility] Comment on above: Performed By: #### 5 7021-8 #### KELECHI Garcia ([id number]) [facility] ([facility]) [id number] [place] [address] 25401 MCHC (RBC) [Mass/Vol] 32.2 g/dL Normal 32.0-36.0 [facility] Comment on above: Performed By: #### 5 7021-8 #### KELECHI Garcia ([id number]) [facility] ([facility]) [address] [place] [address] MCV (RBC) [Entitic vol] 94 fL Normal 80-100 [facility] Comment on above: Performed By: #### 5 7021-8 #### KELECHI Garcia ([id number]) [facility] ([facility]) [address] [place] [address] Monocytes (Bld) [#/Vol] 1.23 x10*3/uL High 0.05-0.80 [facility] Comment on above: Performed By: #### 5 7021-8 #### KELECHI Garcia ([id number]) [facility] ([facility]) [id number] [place] [address] 43605 Monocytes/100 WBC (Bld) 10.0 % Normal 2.0-10.0 [facility] Comment on above: Performed By: #### 5 7021-8 #### KELECHI Garcia ([id number]) [facility] ([facility]) [address] [place] [address] 31307 Neutrophils (Bld) [#/Vol] 9.70 x10*3/uL High 1.60-5.50 [facility] Comment on above: Result Comment: Perc ent differential counts (%) should be interpreted in the context of the absolute cell counts (cells/uL). Performed By: #### 5 7021-8 #### KELECHI Garcia ([id number]) [facility] ([facility]) [address] [place] [address] Neutrophils/100 WBC (Bld) 78.7 % Normal 40.0-80.0 [facility] Comment on above: Performed By: #### 5 7021-8 #### KELECHI Garcia ([id number]) [facility] ([facility]) [id number] [place] [address] 90144 Nucleated RBC/100 WBC (Bld) [Ratio] 0.0 /100 WBCs Normal 0.0-0.0 [facility] Comment on above: Performed By: #### 5 7021-8 #### KELECHI Garcia ([id number]) [facility] ([facility]) [address] [place] [address] Platelets (Bld) [#/Vol] 366 x10*3/uL Normal 150-450 [facility] Comment on above: Performed By: #### 5 7021-8 #### KELECHI Garcia ([id number]) [facility] ([facility]) [address] [place] [address] RBC (Bld) [#/Vol] 2.24 x10*6/uL Low 4.00-5.20 [facility] Comment on above: Performed By: #### 5 7021-8 #### KELECHI Garcia ([id number]) [facility] ([facility]) [address] [place] [address] WBC (Bld) [#/Vol] 12.3 x10*3/uL High 4.4-11.3 [facility] Comment on above: Performed By: #### 5 7021-8 #### KELECHI Garcia ([id number]) [facility] ([facility]) [id number] [place] [address] 87345 Basophils (Bld) [#/Vol] 0.09 10*3/uL [facility] Basophils/100 WBC (Bld) 0.8 % 0.0 - 2.0 % [facility] Eosinophils (Bld) [#/Vol] 0.38 10*3/uL [facility] Eosinophils/100 WBC (Bld) 3.4 % 0.0 - 6.0 % [facility] Erythrocyte distribution width (RBC) [Ratio] 16 % High 11.5 - 14.5 % [facility] Hematocrit (Bld) [Volume fraction] 23.5 % Low 36.0 - 46.0 % [facility] Hemoglobin (Bld) [Mass/Vol] 7.9 g/dL Low 12.0 - 16.0 g/dL [facility] Immature granulocytes (Bld) [#/Vol] 0.04 10*3/uL [facility] Immature granulocytes/100 WBC (Bld) 0.4 % 0.0 - 0.9 % [facility] Comment on above: Immature Granulocyte Count (IG) includes promyelocytes, myelocytes and metamyelocytes but does not include bands. Percent differential counts (%) should be interpreted in the context of the absolute cell counts (cells/UL). Interpretation and review of laboratory results Abnormal [facility] Lymphocytes (Bld) [#/Vol] 1.57 10*3/uL [facility] Lymphocytes/100 WBC (Bld) 14.1 % 13.0 - 44.0 % [facility] MCH (RBC) [Entitic mass] 31.9 pg 26.0 - 34.0 pg [facility] MCHC (RBC) [Mass/Vol] 33.6 g/dL 32.0 - 36.0 g/dL [facility] MCV (RBC) [Entitic vol] 95 fL 80 - 100 fL [facility] Monocytes (Bld) [#/Vol] 1.17 10*3/uL High [facility] Monocytes/100 WBC (Bld) 10.5 % 2.0 - 10.0 % [facility] Neutrophils (Bld) [#/Vol] 7.86 10*3/uL High [facility] Comment on above: Percent differential counts (%) should be interpreted in the context of the absolute cell counts (cells/uL). Neutrophils/100 WBC (Bld) 70.8 % 40.0 - 80.0 % [facility] Nucleated RBC/100 WBC (Bld) [Ratio] 0 % [facility] Platelets (Bld) [#/Vol] 369 10*3/uL [facility] RBC (Bld) [#/Vol] 2.48 10*6/uL Low [facility] WBC (Bld) [#/Vol] 11.1 10*3/uL [facility]ophils (Bld) [#/Vol] 0.09 x10*3/uL Normal 0.00-0.10 [facility] Comment on above: Performed By: #### 1 [id number] #### KELECHI Garcia ([id number]) [facility] ([facility]) [id number] [place] [id number] Basophils/100 WBC (Bld) 0.8 % Normal 0.0-2.0 [facility] Comment on above: Performed By: #### 1 9123-9 #### KELECHI Garcia ([id number]) [facility] ([facility]) [address] [place] [address] 65855 Eosinophils (Bld) [#/Vol] 0.38 x10*3/uL Normal 0.00-0.40 [facility] Comment on above: Performed By: #### 1 9123-9 #### KELECHI Garcia ([id number]) [facility] ([facility]) [address] [place] [address] 51498 Eosinophils/100 WBC (Bld) 3.4 % Normal 0.0-6.0 [facility] Comment on above: Performed By: #### 1 9123-9 #### KELECHI Garcia ([id number]) [facility] ([facility]) [address] [place] [address] 48261 Erythrocyte distribution width (RBC) [Ratio] 16.0 % High 11.5-14.5 [facility] Comment on above: Performed By: #### 1 9123-9 #### KELECHI Garcia ([id number]) [facility] ([facility]) [address] [place] [address] 45747 Hematocrit (Bld) [Volume fraction] 23.5 % Low 36.0-46.0 [facility] Comment on above: Performed By: #### 1 9123-9 #### KELECHI Garcia ([id number]) [facility] ([facility]) [address] [place] [address] 60710 Hemoglobin (Bld) [Mass/Vol] 7.9 g/dL Low 12.0-16.0 [facility] Comment on above: Performed By: #### 1 9123-9 #### KELECHI Garcia ([id number]) [facility] ([facility]) [address] [place] [address] 41884 Immature granulocytes (Bld) [#/Vol] 0.04 x10*3/uL Normal 0.00-0.50 [facility] Comment on above: Performed By: #### 1 9123-9 #### KELECHI Garcia ([id number]) [facility] ([facility]) [id number] [place] [address] 64624 Immature granulocytes/100 WBC (Bld) 0.4 % Normal 0.0-0.9 [facility] Comment on above: Result Comment: Jannie ture Granulocyte Count (IG) includes promyelocytes, myelocytes and metamyelocytes but does not include bands. Percent differential counts (%) should be interpreted in the context of the absolute cell counts (cells/UL). Performed By: #### 1 9123-9 #### KELECHI Garcia ([id number]) [facility] ([facility]) [address] [place] [address] 75220 Lymphocytes (Bld) [#/Vol] 1.57 x10*3/uL Normal 0.80-3.00 [facility] Comment on above: Performed By: #### 1 9123-9 #### KELECHI Garcia ([id number]) [facility] ([facility]) [id number] [place] [address] 25373 Lymphocytes/100 WBC (Bld) 14.1 % Normal 13.0-44.0 [facility] Comment on above: Performed By: #### 1 9123-9 #### KELECHI Garcia ([id number]) [facility] ([facility]) [address] [place] [address] 17068 MCH (RBC) [Entitic mass] 31.9 pg Normal 26.0-34.0 [facility] Comment on above: Performed By: #### 1 9123-9 #### KELECHI Garcia ([id number]) [facility] ([facility]) [id number] [place] [address] 79942 MCHC (RBC) [Mass/Vol] 33.6 g/dL Normal 32.0-36.0 [facility] Comment on above: Performed By: #### 1 9123-9 #### KELECHI Garcia ([id number]) [facility] ([facility]) [address] [place] [address] MCV (RBC) [Entitic vol] 95 fL Normal 80-100 [facility] Comment on above: Performed By: #### 1 9123-9 #### KELECHI Garcia ([id number]) [facility] ([facility]) [address] [place] [address] Monocytes (Bld) [#/Vol] 1.17 x10*3/uL High 0.05-0.80 [facility] Comment on above: Performed By: #### 1 9123-9 #### KELECHI Garcia ([id number]) [facility] ([facility]) [id number] [place] [address] 40765 Monocytes/100 WBC (Bld) 10.5 % Normal 2.0-10.0 [facility] Comment on above: Performed By: #### 1 9123-9 #### KELECHI Garcia ([id number]) [facility] ([facility]) [id number] [place] [address] 63404 Neutrophils (Bld) [#/Vol] 7.86 x10*3/uL High 1.60-5.50 [facility] Comment on above: Result Comment: Perc ent differential counts (%) should be interpreted in the context of the absolute cell counts (cells/uL). Performed By: #### 1 9123-9 #### KELECHI Garcia ([id number]) [facility] ([facility]) [address] [place] [address] Neutrophils/100 WBC (Bld) 70.8 % Normal 40.0-80.0 [facility] Comment on above: Performed By: #### 1 9123-9 #### KELECHI Garcia ([id number]) [facility] ([facility]) [id number] [place] [address] 29228 Nucleated RBC/100 WBC (Bld) [Ratio] 0.0 /100 WBCs Normal 0.0-0.0 [facility] Comment on above: Performed By: #### 1 9123-9 #### KELECHI Garcia ([id number]) [facility] ([facility]) [address] [place] [address] Platelets (Bld) [#/Vol] 369 x10*3/uL Normal 150-450 [facility] Comment on above: Performed By: #### 1 9123-9 #### KELECHI Garcia ([id number]) [facility] ([facility]) [address] [place] [address] RBC (Bld) [#/Vol] 2.48 x10*6/uL Low 4.00-5.20 [facility] Comment on above: Performed By: #### 1 9123-9 #### KELECHI Garcia ([id number]) [facility] ([facility]) [address] [place] [address] WBC (Bld) [#/Vol] 11.1 x10*3/uL Normal 4.4-11.3 [facility] Comment on above: Performed By: #### 1 9123-9 #### KELECHI Garcia ([id number]) [facility] ([facility]) [address] [place] [address] Basophils (Bld) [#/Vol] 0.15 10*3/uL High [facility] Basophils/100 WBC (Bld) 1.2 % 0.0 - 2.0 % [facility] Eosinophils (Bld) [#/Vol] 0.28 10*3/uL [facility] Eosinophils/100 WBC (Bld) 2.3 % 0.0 - 6.0 % [facility] Erythrocyte distribution width (RBC) [Ratio] 15.9 % High 11.5 - 14.5 % [facility] Hematocrit (Bld) [Volume fraction] 26.2 % Low 36.0 - 46.0 % [facility] Hemoglobin (Bld) [Mass/Vol] 8.4 g/dL Low 12.0 - 16.0 g/dL [facility] Immature granulocytes (Bld) [#/Vol] 0.04 10*3/uL [facility] Immature granulocytes/100 WBC (Bld) 0.3 % 0.0 - 0.9 % [facility] Comment on above: Immature Granulocyte Count (IG) includes promyelocytes, myelocytes and metamyelocytes but does not include bands. Percent differential counts (%) should be interpreted in the context of the absolute cell counts (cells/UL). Interpretation and review of laboratory results Abnormal [facility] Lymphocytes (Bld) [#/Vol] 1.44 10*3/uL [facility] Lymphocytes/100 WBC (Bld) 11.6 % 13.0 - 44.0 % [facility] MCH (RBC) [Entitic mass] 30.5 pg 26.0 - 34.0 pg [facility] MCHC (RBC) [Mass/Vol] 32.1 g/dL 32.0 - 36.0 g/dL [facility] MCV (RBC) [Entitic vol] 95 fL 80 - 100 fL [facility] Monocytes (Bld) [#/Vol] 0.97 10*3/uL High [facility] Monocytes/100 WBC (Bld) 7.8 % 2.0 - 10.0 % [facility] Neutrophils (Bld) [#/Vol] 9.54 10*3/uL High [facility] Comment on above: Percent differential counts (%) should be interpreted in the context of the absolute cell counts (cells/uL). Neutrophils/100 WBC (Bld) 76.8 % 40.0 - 80.0 % [facility] Nucleated RBC/100 WBC (Bld) [Ratio] 0 % [facility] Platelets (Bld) [#/Vol] 393 10*3/uL [facility] RBC (Bld) [#/Vol] 2.75 10*6/uL Low [facility] WBC (Bld) [#/Vol] 12.4 10*3/uL High [facility] Basophils (Bld) [#/Vol] 0.15 x10*3/uL High 0.00-0.10 [facility] Comment on above: Performed By: #### 1 9123-9 #### KELECHI Garcia ([id number]) [facility] ([facility]) [id number] [place] [address] 24984 Basophils/100 WBC (Bld) 1.2 % Normal 0.0-2.0 [facility] Comment on above: Performed By: #### 1 9123-9 #### KELECHI Garcia ([id number]) [facility] ([facility]) [id number] [place] [address] 90647 Eosinophils (Bld) [#/Vol] 0.28 x10*3/uL Normal 0.00-0.40 [facility] Comment on above: Performed By: #### 1 9123-9 #### KELECHI Garcia ([id number]) [facility] ([facility]) [address] [place] [address] 78225 Eosinophils/100 WBC (Bld) 2.3 % Normal 0.0-6.0 [facility] Comment on above: Performed By: #### 1 9123-9 #### KELECHI Garcia ([id number]) [facility] ([facility]) [address] [place] [address] 29416 Erythrocyte distribution width (RBC) [Ratio] 15.9 % High 11.5-14.5 [facility] Comment on above: Performed By: #### 1 9123-9 #### KELECHI Garcia ([id number]) [facility] ([facility]) [address] [place] [address] 29427 Hematocrit (Bld) [Volume fraction] 26.2 % Low 36.0-46.0 [facility] Comment on above: Performed By: #### 1 9123-9 #### KELECHI Garcia ([id number]) [facility] ([facility]) [address] [place] [address] 48472 Hemoglobin (Bld) [Mass/Vol] 8.4 g/dL Low 12.0-16.0 [facility] Comment on above: Performed By: #### 1 9123-9 #### KELECHI Garcia ([id number]) [facility] ([facility]) [address] [place] [address] 33928 Immature granulocytes (Bld) [#/Vol] 0.04 x10*3/uL Normal 0.00-0.50 [facility] Comment on above: Performed By: #### 1 9123-9 #### KELECHI Garcia ([id number]) [facility] ([facility]) [id number] [place] [address] 07937 Immature granulocytes/100 WBC (Bld) 0.3 % Normal 0.0-0.9 [facility] Comment on above: Result Comment: Jannie ture Granulocyte Count (IG) includes promyelocytes, myelocytes and metamyelocytes but does not include bands. Percent differential counts (%) should be interpreted in the context of the absolute cell counts (cells/UL). Performed By: #### 1 9123-9 #### KELECHI Garcia ([id number]) [facility] ([facility]) [address] [place] [address] 50171 Lymphocytes (Bld) [#/Vol] 1.44 x10*3/uL Normal 0.80-3.00 [facility] Comment on above: Performed By: #### 1 9123-9 #### KELECHI Garcia ([id number]) [facility] ([facility]) [address] [place] [address] 02017 Lymphocytes/100 WBC (Bld) 11.6 % Normal 13.0-44.0 [facility] Comment on above: Performed By: #### 1 9123-9 #### KELECHI Garcia ([id number]) [facility] ([facility]) [address] [place] [address] 07311 MCH (RBC) [Entitic mass] 30.5 pg Normal 26.0-34.0 [facility] Comment on above: Performed By: #### 1 9123-9 #### KELECIH Garcia ([id number]) [facility] ([facility]) [address] [place] [address] 93219 MCHC (RBC) [Mass/Vol] 32.1 g/dL Normal 32.0-36.0 [facility] Comment on above: Performed By: #### 1 9123-9 #### KELECHI Garcia ([id number]) [facility] ([facility]) [address] [place] [address] MCV (RBC) [Entitic vol] 95 fL Normal 80-100 [facility] Comment on above: Performed By: #### 1 9123-9 #### KELECHI Garcia ([id number]) [facility] ([facility]) [address] [place] [address] Monocytes (Bld) [#/Vol] 0.97 x10*3/uL High 0.05-0.80 [facility] Comment on above: Performed By: #### 1 9123-9 #### KELECHI Garcia ([id number]) [facility] ([facility]) [id number] [place] [address] 38519 Monocytes/100 WBC (Bld) 7.8 % Normal 2.0-10.0 [facility] Comment on above: Performed By: #### 1 9123-9 #### KELECHI Garcia ([id number]) [facility] ([facility]) [id number] [place] [address] 40973 Neutrophils (Bld) [#/Vol] 9.54 x10*3/uL High 1.60-5.50 [facility] Comment on above: Result Comment: Perc ent differential counts (%) should be interpreted in the context of the absolute cell counts (cells/uL). Performed By: #### 1 9123-9 #### KELECHI Garcia ([id number]) [facility] ([facility]) [address] [place] [address] Neutrophils/100 WBC (Bld) 76.8 % Normal 40.0-80.0 [facility] Comment on above: Performed By: #### 1 9123-9 #### KELECHI Garcia ([id number]) [facility] ([facility]) [id number] [place] [address] 86921 Nucleated RBC/100 WBC (Bld) [Ratio] 0.0 /100 WBCs Normal 0.0-0.0 [facility] Comment on above: Performed By: #### 1 9123-9 #### KELECHI Garcia ([id number]) [facility] ([facility]) [address] [place] [address] Platelets (Bld) [#/Vol] 393 x10*3/uL Normal 150-450 [facility] Comment on above: Performed By: #### 1 9123-9 #### KELECHI Garcia ([id number]) [facility] ([facility]) [address] [place] [address] RBC (Bld) [#/Vol] 2.75 x10*6/uL Low 4.00-5.20 [facility] Comment on above: Performed By: #### 1 9123-9 #### KELECHI Garcia ([id number]) [facility] ([facility]) [id number] [place] [address] 76943 WBC (Bld) [#/Vol] 12.4 x10*3/uL High 4.4-11.3 [facility] Comment on above: Performed By: #### 1 9123-9 #### KELECHI Garcia ([id number]) [facility] ([facility]) [id number] [place] [address] 67380 Basophils (Bld) [#/Vol] 0.15 10*3/uL High [facility] Basophils/100 WBC (Bld) 1.3 % 0.0 - 2.0 % [facility] Eosinophils (Bld) [#/Vol] 0.32 10*3/uL [facility] Eosinophils/100 WBC (Bld) 2.7 % 0.0 - 6.0 % [facility] Erythrocyte distribution width (RBC) [Ratio] 15.5 % High 11.5 - 14.5 % [facility] Hematocrit (Bld) [Volume fraction] 22.9 % Low 36.0 - 46.0 % [facility] Hemoglobin (Bld) [Mass/Vol] 7.5 g/dL Low 12.0 - 16.0 g/dL [facility] Immature granulocytes (Bld) [#/Vol] 0.07 10*3/uL [facility] Immature granulocytes/100 WBC (Bld) 0.6 % 0.0 - 0.9 % [facility] Comment on above: Immature Granulocyte Count (IG) includes promyelocytes, myelocytes and metamyelocytes but does not include bands. Percent differential counts (%) should be interpreted in the context of the absolute cell counts (cells/UL). Interpretation and review of laboratory results Abnormal [facility] Lymphocytes (Bld) [#/Vol] 1.67 10*3/uL [facility] Lymphocytes/100 WBC (Bld) 14 % 13.0 - 44.0 % [facility] MCH (RBC) [Entitic mass] 30.9 pg 26.0 - 34.0 pg [facility] MCHC (RBC) [Mass/Vol] 32.8 g/dL 32.0 - 36.0 g/dL [facility] MCV (RBC) [Entitic vol] 94 fL 80 - 100 fL [facility] Monocytes (Bld) [#/Vol] 1.39 10*3/uL High [facility] Monocytes/100 WBC (Bld) 11.7 % 2.0 - 10.0 % [facility] Neutrophils (Bld) [#/Vol] 8.33 10*3/uL High [facility] Comment on above: Percent differential counts (%) should be interpreted in the context of the absolute cell counts (cells/uL). Neutrophils/100 WBC (Bld) 69.7 % 40.0 - 80.0 % [facility] Nucleated RBC/100 WBC (Bld) [Ratio] 0 % [facility] Platelets (Bld) [#/Vol] 360 10*3/uL [facility] RBC (Bld) [#/Vol] 2.43 10*6/uL Low [facility] WBC (Bld) [#/Vol] 11.9 10*3/uL High [facility] Basophils (Bld) [#/Vol] 0.15 x10*3/uL High 0.00-0.10 [facility] Comment on above: Performed By: #### 5 7021-8 #### KELECHI Garcia ([id number]) [facility] ([facility]) [id number] [place] [address] 97961 Basophils/100 WBC (Bld) 1.3 % Normal 0.0-2.0 [facility] Comment on above: Performed By: #### 5 7021-8 #### KELECHI Garcia ([id number]) [facility] ([facility]) [id number] [place] [address] 26025 Eosinophils (Bld) [#/Vol] 0.32 x10*3/uL Normal 0.00-0.40 [facility] Comment on above: Performed By: #### 5 7021-8 #### KELECHI Garcia ([id number]) [facility] ([facility]) [address] [place] [address] 01334 Eosinophils/100 WBC (Bld) 2.7 % Normal 0.0-6.0 [facility] Comment on above: Performed By: #### 5 7021-8 #### KELECHI Garcia ([id number]) [facility] ([facility]) [address] [place] [address] 29154 Erythrocyte distribution width (RBC) [Ratio] 15.5 % High 11.5-14.5 [facility] Comment on above: Performed By: #### 5 7021-8 #### KELECHI Garcia ([id number]) [facility] ([facility]) [address] [place] [address] 70756 Hematocrit (Bld) [Volume fraction] 22.9 % Low 36.0-46.0 [facility] Comment on above: Performed By: #### 5 7021-8 #### KELECHI Garcia ([id number]) [facility] ([facility]) [address] [place] [address] 71187 Hemoglobin (Bld) [Mass/Vol] 7.5 g/dL Low 12.0-16.0 [facility] Comment on above: Performed By: #### 5 7021-8 #### KELECHI Garcia ([id number]) [facility] ([facility]) [address] [place] [address] 72228 Immature granulocytes (Bld) [#/Vol] 0.07 x10*3/uL Normal 0.00-0.50 [facility] Comment on above: Performed By: #### 5 7021-8 #### KELECHI Garcia ([id number]) [facility] ([facility]) [id number] [place] [address] 56118 Immature granulocytes/100 WBC (Bld) 0.6 % Normal 0.0-0.9 [facility] Comment on above: Result Comment: Jannie ture Granulocyte Count (IG) includes promyelocytes, myelocytes and metamyelocytes but does not include bands. Percent differential counts (%) should be interpreted in the context of the absolute cell counts (cells/UL). Performed By: #### 5 7021-8 #### KELECHI Garcia ([id number]) [facility] ([facility]) [address] [place] [address] 54128 Lymphocytes (Bld) [#/Vol] 1.67 x10*3/uL Normal 0.80-3.00 [facility] Comment on above: Performed By: #### 5 7021-8 #### KELECHI Garcia ([id number]) [facility] ([facility]) [address] [place] [address] 39416 Lymphocytes/100 WBC (Bld) 14.0 % Normal 13.0-44.0 [facility] Comment on above: Performed By: #### 5 7021-8 #### KELECHI Garcia ([id number]) [facility] ([facility]) [address] [place] [address] 39690 MCH (RBC) [Entitic mass] 30.9 pg Normal 26.0-34.0 [facility] Comment on above: Performed By: #### 5 7021-8 #### KELECHI Garcia ([id number]) [facility] ([facility]) [address] [place] [address] 59717 MCHC (RBC) [Mass/Vol] 32.8 g/dL Normal 32.0-36.0 [facility] Comment on above: Performed By: #### 5 7021-8 #### KELECHI Garcia ([id number]) [facility] ([facility]) [address] [place] [address] MCV (RBC) [Entitic vol] 94 fL Normal 80-100 [facility] Comment on above: Performed By: #### 5 7021-8 #### KELECHI Garcia ([id number]) [facility] ([facility]) [id number] [place] [address] 72252 Monocytes (Bld) [#/Vol] 1.39 x10*3/uL High 0.05-0.80 [facility] Comment on above: Performed By: #### 5 7021-8 #### KELECHI Garcia ([id number]) [facility] ([facility]) [address] [place] [address] 74620 Monocytes/100 WBC (Bld) 11.7 % Normal 2.0-10.0 [facility] Comment on above: Performed By: #### 5 7021-8 #### KELECHI Garcia ([id number]) [facility] ([facility]) [address] [place] [id number] Neutrophils (Bld) [#/Vol] 8.33 x10*3/uL High 1.60-5.50 [facility] Comment on above: Result Comment: Perc ent differential counts (%) should be interpreted in the context of the absolute cell counts (cells/uL). Performed By: #### 5 7021-8 #### KELECHI Garcia ([id number]) [facility] ([facility]) [id number] [place] [address] 74031 Neutrophils/100 WBC (Bld) 69.7 % Normal 40.0-80.0 [facility] Comment on above: Performed By: #### 5 7021-8 #### KELECHI Garcia ([id number]) [facility] ([facility]) [id number] [place] [address] 01438 Nucleated RBC/100 WBC (Bld) [Ratio] 0.0 /100 WBCs Normal 0.0-0.0 [facility] Comment on above: Performed By: #### 5 7021-8 #### KELECHI Garcia ([id number]) [facility] ([facility]) [address] [place] [address] Platelets (Bld) [#/Vol] 360 x10*3/uL Normal 150-450 [facility] Comment on above: Performed By: #### 5 7021-8 #### KELECHI Garcia ([id number]) [facility] ([facility]) [id number] [place] [address] 40488 RBC (Bld) [#/Vol] 2.43 x10*6/uL Low 4.00-5.20 [facility] Comment on above: Performed By: #### 5 7021-8 #### KELECHI Garcia ([id number]) [facility] ([facility]) [id number] [place] [address] 29019 WBC (Bld) [#/Vol] 11.9 x10*3/uL High 4.4-11.3 [facility] Comment on above: Performed By: #### 5 7021-8 #### KELECHI Garcia ([id number]) [facility] ([facility]) [address] [place] [address] 12809 Basophils (Bld) [#/Vol] 0.12 10*3/uL High [facility] Basophils/100 WBC (Bld) 1 % 0.0 - 2.0 % [facility] Eosinophils (Bld) [#/Vol] 0.23 10*3/uL [facility] Eosinophils/100 WBC (Bld) 1.9 % 0.0 - 6.0 % [facility] Erythrocyte distribution width (RBC) [Ratio] 15.7 % High 11.5 - 14.5 % [facility] Hematocrit (Bld) [Volume fraction] 21.1 % Low 36.0 - 46.0 % [facility] Hemoglobin (Bld) [Mass/Vol] 6.8 g/dL Low 12.0 - 16.0 g/dL [facility] Immature granulocytes (Bld) [#/Vol] 0.04 10*3/uL [facility] Immature granulocytes/100 WBC (Bld) 0.3 % 0.0 - 0.9 % [facility] Comment on above: Immature Granulocyte Count (IG) includes promyelocytes, myelocytes and metamyelocytes but does not include bands. Percent differential counts (%) should be interpreted in the context of the absolute cell counts (cells/UL). Interpretation and review of laboratory results Abnormal [facility] Lymphocytes (Bld) [#/Vol] 1 10*3/uL [facility] Lymphocytes/100 WBC (Bld) 8.1 % 13.0 - 44.0 % [facility] MCH (RBC) [Entitic mass] 30.4 pg 26.0 - 34.0 pg [facility] MCHC (RBC) [Mass/Vol] 32.2 g/dL 32.0 - 36.0 g/dL [facility] MCV (RBC) [Entitic vol] 94 fL 80 - 100 fL [facility] Monocytes (Bld) [#/Vol] 1.23 10*3/uL High [facility] Monocytes/100 WBC (Bld) 10 % 2.0 - 10.0 % [facility] Neutrophils (Bld) [#/Vol] 9.7 10*3/uL High [facility] Comment on above: Percent differential counts (%) should be interpreted in the context of the absolute cell counts (cells/uL). Neutrophils/100 WBC (Bld) 78.7 % 40.0 - 80.0 % [facility] Nucleated RBC/100 WBC (Bld) [Ratio] 0 % [facility] Platelets (Bld) [#/Vol] 366 10*3/uL [facility] RBC (Bld) [#/Vol] 2.24 10*6/uL Low [facility] WBC (Bld) [#/Vol] 12.3 10*3/uL High [facility] No Panel Informationon 09-01 Interpretation and review of laboratory results Abnormal [facility] Vancomycinon 09-01-2024 Vancomycin [Mass/Vol] 25.3 ug/mL High 5.0 - 20.0 ug/mL [facility] Vancomycin [Mass/Vol] 25.3 ug/mL High 5.0-20.0 [facility] Comment on above: Order Comment: Vanco [...] By: #### 1 9123-9 #### KELECHI Garcia ([id number]) [facility] ([facility]) [address] [place] [address] Vancomycin [Mass/Vol]on 08-05 Vancomycin levels can be [...] 30.0-40.0 ug/mL Trough (all ages): 10.0-20.0 ug/mL [facility] Basic metabolic 2000 panelon 08-31-2024 Anion gap [Moles/Vol] 19 mmol/L 10 - 2 0 mmol/L [facility] Calcium [Mass/Vol] 7.3 mg/dL Low 8.6 - 10. 6 mg/dL [facility] Chloride [Moles/Vol] 89 mmol/L Low 98 - 10 7 mmol/L [facility] CO2 [Moles/Vol] 28 mmol/L 21 - 32 mmol/L [facility] Creatinine [Mass/Vol] 7.69 mg/dL High 0.50 - 1.05 mg/dL [facility] GFR/1.73 sq M.predicted among non-blacks MDRD (S/P/Bld) [Vol rate/Area] 5 mL/min/{1.73_m2} Low - PINF [facility] Comment on above: Calculations of katy mated GFR are performed using the 2020 CKD-EPI Study Refit equation without the race variable for the IDMS-Traceable creatinine methods. https://jasn.asnjournals.org/content//ASN.2020 410292 Glucose [Mass/Vol] 74 mg/dL 74 - 99 mg/dL [facility] Potassium [Moles/Vol] 4.2 mmol/L 3.5 - 5.3 mmol/L [facility] Sodium [Moles/Vol] 132 mmol/L Low 136 - 145 mmol/L [facility] Urea nitrogen [Mass/Vol] 45 mg/dL High 6 - 23 mg/dL [facility] Anion gap [Moles/Vol] 19 mmol/L Normal 10-20 [facility] Comment on above: Performed By: #### 2 4321-2 #### KELECHI VELÁZQUEZ L ([id number]) [facility] ([facility]) [address] [place] [address] 66273 Calcium [Mass/Vol] 7.3 mg/dL Low 8.6-10.6 [facility] Comment on above: Performed By: #### 2 4321-2 #### KELECHI TAOTZZAMZAM L ([id number]) [facility] ([facility]) [id number] [place] [address] 94363 Chloride [Moles/Vol] 89 mmol/L Low 98-107 [facility] Comment on above: Performed By: #### 2 4321-2 #### KELECHI VELÁZQUEZ L ([id number]) [facility] ([facility]) [address] [place] [address] 18503 CO2 [Moles/Vol] 28 mmol/L Normal 21-32 [facility] Comment on above: Performed By: #### 2 4321-2 #### KELECHI VELÁZQUEZ L ([id number]) [facility] ([facility]) [address] [place] [address] Creatinine [Mass/Vol] 7.69 mg/dL High 0.50-1.05 [facility] Comment on above: Performed By: #### 2 4321-2 #### KELECHI Garcia ([id number]) [facility] ([facility]) [address] [place] [address] Glomerular filtration rate/1.73 sq M.predicted 5 mL/min/1.73m*2 Low >60 [facility] Comment on above: Result Comment: Calc ulations of estimated GFR are performed using the 2020 CKD-EPI Study Refit equation without the race variable for the IDMS-Traceable creatinine methods. https://jasn.asnjournals.org/content/early//ASN.2020 676975 Performed By: #### 2 4321-2 #### KELECHI Garcia ([id number]) [facility] ([facility]) [id number] [place] [address]443 Glucose [Mass/Vol] 74 mg/dL Normal 74-99 [facility] Comment on above: Performed By: #### 2 4321-2 #### KELECHI Garcia ([id number]) [facility] ([facility]) [id number] [place] [address] 89616 Potassium [Moles/Vol] 4.2 mmol/L Normal 3.5-5.3 [facility] Comment on above: Performed By: #### 2 4321-2 #### KELECHI Garcia ([id number]) [facility] ([facility]) [id number] [place] [address] 69465 Sodium [Moles/Vol] 132 mmol/L Low 136-145 [facility] Comment on above: Performed By: #### 2 4321-2 #### KELECHI Garcia ([id number]) [facility] ([facility]) [id number] [place] [address] 19234 Urea nitrogen [Mass/Vol] 45 mg/dL High 6-23 [facility] Comment on above: Performed By: #### 2 4321-2 #### KELECHI Garcia ([id number]) [facility] ([facility]) [address] [place] [address] Blood type and Indirect anti body screen panel (Bld)on 08-31-2024 ABO group Nom (Bld) O [facility] Blood group antibody screen Ql Negative [facility] D Ag Ql (Bld) Positive [facility] ABO group Nom (Bld) O Normal [facility] Comment on above: Performed By: #### 5 7021-8 #### KELECHI Garcia ([id number]) [facility] ([facility]) [address] [place] [address] Blood group antibody screen Ql Negative [facility] Comment on above: Performed By: #### 5 7021-8 #### KELECHI Garcia ([id number]) [facility] ([facility]) [address] [place] [address] D Ag Ql (Bld) Positive [facility] Comment on above: Performed By: #### 5 7021-8 #### KELECHI Garcia ([id number]) [facility] ([facility]) [address] [place] [address] ABO group Nom (Bld) O [facility] Blood group antibody screen Ql Negative [facility] D Ag Ql (Bld) Positive [facility] Comment on above: 2nd ABO test require d. Order and Collect [facility] ABO group Nom (Bld) O [facility] Comment on above: Performed By: #### 3 4532-2 #### KELECHI Garcia ([id number]) [facility] ([facility]) [address] [place] [address] Blood group antibody screen Ql Negative [facility] Comment on above: Performed By: #### 3 4532-2 #### KELECHI Garcia ([id number]) [facility] ([facility]) [address] [place] [address] D Ag Ql (Bld) Positive Normal [facility] Comment on above: Result Comment: 2nd ABO test required. Order and Collect [facility] Performed By: #### 3 4532-2 #### KELECHI Garcia ([id number]) [facility] [address] [place] [address] CBC W Auto Differential pane l (Bld)on 08-31-2024 Basophils (Bld) [#/Vol] 0.13 10*3/uL High [facility] Basophils/100 WBC (Bld) 1 % 0.0 - 2.0 % [facility] Eosinophils (Bld) [#/Vol] 0.34 10*3/uL [facility] Eosinophils/100 WBC (Bld) 2.6 % 0.0 - 6.0 % [facility] Erythrocyte distribution width (RBC) [Ratio] 15.7 % High 11.5 - 14.5 % [facility] Hematocrit (Bld) [Volume fraction] 19.6 % Low 36.0 - 46.0 % [facility] Hemoglobin (Bld) [Mass/Vol] 6.4 g/dL Critically low 12.0 - 16.0 g/dL [facility] Immature granulocytes (Bld) [#/Vol] 0.05 10*3/uL [facility] Immature granulocytes/100 WBC (Bld) 0.4 % 0.0 - 0.9 % [facility] Comment on above: Immature Granulocyte Count (IG) includes promyelocytes, myelocytes and metamyelocytes but does not include bands. Percent differential counts (%) should be interpreted in the context of the absolute cell counts (cells/UL). Interpretation and review of laboratory results Abnormal [facility] Lymphocytes (Bld) [#/Vol] 1.29 10*3/uL [facility] Lymphocytes/100 WBC (Bld) 9.8 % 13.0 - 44.0 % [facility] MCH (RBC) [Entitic mass] 30.3 pg 26.0 - 34.0 pg [facility] MCHC (RBC) [Mass/Vol] 32.7 g/dL 32.0 - 36.0 g/dL [facility] MCV (RBC) [Entitic vol] 93 fL 80 - 100 fL [facility] Monocytes (Bld) [#/Vol] 0.95 10*3/uL High [facility] Monocytes/100 WBC (Bld) 7.2 % 2.0 - 10.0 % [facility] Neutrophils (Bld) [#/Vol] 10.47 10*3/uL High [facility] Comment on above: Percent differential counts (%) should be interpreted in the context of the absolute cell counts (cells/uL). Neutrophils/100 WBC (Bld) 79 % 40.0 - 80.0 % [facility] Nucleated RBC/100 WBC (Bld) [Ratio] 0 % [facility] Platelets (Bld) [#/Vol] 347 10*3/uL [facility] RBC (Bld) [#/Vol] 2.11 10*6/uL Low [facility] WBC (Bld) [#/Vol] 13.2 10*3/uL High [facility] Basophils (Bld) [#/Vol] 0.13 x10*3/uL High 0.00-0.10 [facility] Comment on above: Performed By: #### 5 7021-8 #### KELECHI Garcia ([id number]) [facility] ([facility]) [address] [place] [address] Basophils/100 WBC (Bld) 1.0 % Normal 0.0-2.0 [facility] Comment on above: Performed By: #### 5 7021-8 #### KELECHI Garcia ([id number]) [facility] ([facility]) [address] [place] [address] Eosinophils (Bld) [#/Vol] 0.34 x10*3/uL Normal 0.00-0.40 [facility] Comment on above: Performed By: #### 5 7021-8 #### KELECHI Garcia ([id number]) [facility] ([facility]) [address] [place] [address] Eosinophils/100 WBC (Bld) 2.6 % Normal 0.0-6.0 [facility] Comment on above: Performed By: #### 5 7021-8 #### KELECHI Garcia ([id number]) [facility] ([facility]) [address] [place] [address] 22291 Erythrocyte distribution width (RBC) [Ratio] 15.7 % High 11.5-14.5 [facility] Comment on above: Performed By: #### 5 7021-8 #### KELECHI Garcia ([id number]) [facility] ([facility]) [address] [place] [address] 09685 Hematocrit (Bld) [Volume fraction] 19.6 % Low 36.0-46.0 [facility] Comment on above: Performed By: #### 5 7021-8 #### KELECHI Garcia ([id number]) [facility] ([facility]) [address] [place] [address] 75569 Hemoglobin (Bld) [Mass/Vol] 6.4 g/dL Critically low 12.0-16.0 [facility] Comment on above: Performed By: #### 5 7021-8 #### KELECHI Garcia ([id number]) [facility] ([facility]) [address] [place] [address] 39125 Immature granulocytes (Bld) [#/Vol] 0.05 x10*3/uL Normal 0.00-0.50 [facility] Comment on above: Performed By: #### 5 7021-8 #### KELECHI Garcia ([id number]) [facility] ([facility]) [address] [place] [address] 81491 Immature granulocytes/100 WBC (Bld) 0.4 % Normal 0.0-0.9 [facility] Comment on above: Result Comment: Jannie ture Granulocyte Count (IG) includes promyelocytes, myelocytes and metamyelocytes but does not include bands. Percent differential counts (%) should be interpreted in the context of the absolute cell counts (cells/UL). Performed By: #### 5 7021-8 #### KELECHI Garcia ([id number]) [facility] ([facility]) [id number] [place] [address] 65334 Lymphocytes (Bld) [#/Vol] 1.29 x10*3/uL Normal 0.80-3.00 [facility] Comment on above: Performed By: #### 5 7021-8 #### KELECHI Garcia ([id number]) [facility] ([facility]) [address] [place] [address] 54635 Lymphocytes/100 WBC (Bld) 9.8 % Normal 13.0-44.0 [facility] Comment on above: Performed By: #### 5 7021-8 #### KELECHI Garcia ([id number]) [facility] ([facility]) [address] [place] [address] 20067 MCH (RBC) [Entitic mass] 30.3 pg Normal 26.0-34.0 [facility] Comment on above: Performed By: #### 5 7021-8 #### KELECHI Garcia ([id number]) [facility] ([facility]) [address] [place] [address] 87525 MCHC (RBC) [Mass/Vol] 32.7 g/dL Normal 32.0-36.0 [facility] Comment on above: Performed By: #### 5 7021-8 #### KELECHI Garcia ([id number]) [facility] ([facility]) [address] [place] [address] 98627 MCV (RBC) [Entitic vol] 93 fL Normal 80-100 [facility] Comment on above: Performed By: #### 5 7021-8 #### KELECHI Garcia ([id number]) [facility] ([facility]) [address] [place] [address] 99029 Monocytes (Bld) [#/Vol] 0.95 x10*3/uL High 0.05-0.80 [facility] Comment on above: Performed By: #### 5 7021-8 #### KELECHI Garcia ([id number]) [facility] ([facility]) [address] [place] [address] 80740 Monocytes/100 WBC (Bld) 7.2 % Normal 2.0-10.0 [facility] Comment on above: Performed By: #### 5 7021-8 #### KELECHI Garcia ([id number]) [facility] ([facility]) [address] [place] [address] Neutrophils (Bld) [#/Vol] 10.47 x10*3/uL High 1.60-5.50 [facility] Comment on above: Result Comment: Perc ent differential counts (%) should be interpreted in the context of the absolute cell counts (cells/uL). Performed By: #### 5 7021-8 #### KELECHI Garcia ([id number]) [facility] ([facility]) [id number] [place] [address] 66143 Neutrophils/100 WBC (Bld) 79.0 % Normal 40.0-80.0 [facility] Comment on above: Performed By: #### 5 7021-8 #### KELECHI Garcia ([id number]) [facility] ([facility]) [address] [place] [address] Nucleated RBC/100 WBC (Bld) [Ratio] 0.0 /100 WBCs Normal 0.0-0.0 [facility] Comment on above: Performed By: #### 5 7021-8 #### KELECHI Garcia ([id number]) [facility] ([facility]) [address] [place] [address] Platelets (Bld) [#/Vol] 347 x10*3/uL Normal 150-450 [facility] Comment on above: Performed By: #### 5 7021-8 #### KELECHI Garcia ([id number]) [facility] ([facility]) [address] [place] [address] RBC (Bld) [#/Vol] 2.11 x10*6/uL Low 4.00-5.20 [facility] Comment on above: Performed By: #### 5 7021-8 #### KELECHI Garcia ([id number]) [facility] ([facility]) [address] [place] [address] WBC (Bld) [#/Vol] 13.2 x10*3/uL High 4.4-11.3 [facility] Comment on above: Performed By: #### 5 7021-8 #### KELECHI Garcia ([id number]) [facility] ([facility]) [address] [place] [address] Basophils (Bld) [#/Vol] 0.19 10*3/uL High [facility] Basophils/100 WBC (Bld) 1.2 % 0.0 - 2.0 % [facility] Eosinophils (Bld) [#/Vol] 0.37 10*3/uL [facility] Eosinophils/100 WBC (Bld) 2.4 % 0.0 - 6.0 % [facility] Erythrocyte distribution width (RBC) [Ratio] 16.1 % High 11.5 - 14.5 % [facility] Hematocrit (Bld) [Volume fraction] 22.7 % Low 36.0 - 46.0 % [facility] Hemoglobin (Bld) [Mass/Vol] 7.2 g/dL Low 12.0 - 16.0 g/dL [facility] Immature granulocytes (Bld) [#/Vol] 0.12 10*3/uL [facility] Immature granulocytes/100 WBC (Bld) 0.8 % 0.0 - 0.9 % [facility] Comment on above: Immature Granulocyte Count (IG) includes promyelocytes, myelocytes and metamyelocytes but does not include bands. Percent differential counts (%) should be interpreted in the context of the absolute cell counts (cells/UL). Interpretation and review of laboratory results Abnormal [facility] Lymphocytes (Bld) [#/Vol] 1.36 10*3/uL [facility] Lymphocytes/100 WBC (Bld) 8.8 % 13.0 - 44.0 % [facility] MCH (RBC) [Entitic mass] 30 pg 26.0 - 34.0 pg [facility] MCHC (RBC) [Mass/Vol] 31.7 g/dL Low 32.0 - 36.0 g/dL [facility] MCV (RBC) [Entitic vol] 95 fL 80 - 100 fL [facility] Monocytes (Bld) [#/Vol] 1.1 10*3/uL High [facility] Monocytes/100 WBC (Bld) 7.1 % 2.0 - 10.0 % [facility] Neutrophils (Bld) [#/Vol] 12.33 10*3/uL High [facility] Comment on above: Percent differential counts (%) should be interpreted in the context of the absolute cell counts (cells/uL). Neutrophils/100 WBC (Bld) 79.7 % 40.0 - 80.0 % [facility] Nucleated RBC/100 WBC (Bld) [Ratio] 0 % [facility] Platelets (Bld) [#/Vol] 353 10*3/uL [facility] RBC (Bld) [#/Vol] 2.4 10*6/uL Low [facility] WBC (Bld) [#/Vol] 15.5 10*3/uL High [facility] Basophils (Bld) [#/Vol] 0.19 x10*3/uL High 0.00-0.10 [facility] Comment on above: Performed By: #### 5 7021-8 #### KELECHI Garcia ([id number]) [facility] ([facility]) [address] [place] [address] Basophils/100 WBC (Bld) 1.2 % Normal 0.0-2.0 [facility] Comment on above: Performed By: #### 5 7021-8 #### KELECHI Garcia ([id number]) [facility] ([facility]) [address] [place] [address] Eosinophils (Bld) [#/Vol] 0.37 x10*3/uL Normal 0.00-0.40 [facility] Comment on above: Performed By: #### 5 7021-8 #### KELECHI Garcia ([id number]) [facility] ([facility]) [address] [place] [address] Eosinophils/100 WBC (Bld) 2.4 % Normal 0.0-6.0 [facility] Comment on above: Performed By: #### 5 7021-8 #### KELECHI Garcia ([id number]) [facility] ([facility]) [address] [place] [address] 89136 Erythrocyte distribution width (RBC) [Ratio] 16.1 % High 11.5-14.5 [facility] Comment on above: Performed By: #### 5 7021-8 #### KELECHI Garcia ([id number]) [facility] ([facility]) [address] [place] [address] 25146 Hematocrit (Bld) [Volume fraction] 22.7 % Low 36.0-46.0 [facility] Comment on above: Performed By: #### 5 7021-8 #### KELECHI Garcia ([id number]) [facility] ([facility]) [address] [place] [address] 46499 Hemoglobin (Bld) [Mass/Vol] 7.2 g/dL Low 12.0-16.0 [facility] Comment on above: Performed By: #### 5 7021-8 #### KELECHI Garcia ([id number]) [facility] ([facility]) [address] [place] [address] 91948 Immature granulocytes (Bld) [#/Vol] 0.12 x10*3/uL Normal 0.00-0.50 [facility] Comment on above: Performed By: #### 5 7021-8 #### KELECHI Garcia ([id number]) [facility] ([facility]) [address] [place] [address] 16470 Immature granulocytes/100 WBC (Bld) 0.8 % Normal 0.0-0.9 [facility] Comment on above: Result Comment: Jannie ture Granulocyte Count (IG) includes promyelocytes, myelocytes and metamyelocytes but does not include bands. Percent differential counts (%) should be interpreted in the context of the absolute cell counts (cells/UL). Performed By: #### 5 7021-8 #### KELECHI Garcia ([id number]) [facility] ([facility]) [id number] [place] [address]12 Lymphocytes (Bld) [#/Vol] 1.36 x10*3/uL Normal 0.80-3.00 [facility] Comment on above: Performed By: #### 5 7021-8 #### KELECHI aGrcia ([id number]) [facility] ([facility]) [id number] [place] [address] Lymphocytes/100 WBC (Bld) 8.8 % Normal 13.0-44.0 [facility] Comment on above: Performed By: #### 5 7021-8 #### KELECHI Garcia ([id number]) [facility] ([facility]) [address] [place] [id number] MCH (RBC) [Entitic mass] 30.0 pg Normal 26.0-34.0 [facility] Comment on above: Performed By: #### 5 7021-8 #### KELECHI Garcia ([id number]) [facility] ([facility]) [address] [place] [address] [phone] MCHC (RBC) [Mass/Vol] 31.7 g/dL Low 32.0-36.0 [facility] Comment on above: Performed By: #### 5 7021-8 #### KELECHI Garcia ([id number]) [facility] ([facility]) [id number] [place] [address] 31211 MCV (RBC) [Entitic vol] 95 fL Normal 80-100 [facility] Comment on above: Performed By: #### 5 7021-8 #### KELECHI Garcia ([id number]) [facility] ([facility]) [id number] [place] [address] 83182 Monocytes (Bld) [#/Vol] 1.10 x10*3/uL High 0.05-0.80 [facility] Comment on above: Performed By: #### 5 7021-8 #### KELECHI Garcia ([id number]) [facility] ([facility]) [id number] [place] [address] 38132 Monocytes/100 WBC (Bld) 7.1 % Normal 2.0-10.0 [facility] Comment on above: Performed By: #### 5 7021-8 #### KELECHI Garcia ([id number]) [facility] ([facility]) [id number] [place] [address] 36751 Neutrophils (Bld) [#/Vol] 12.33 x10*3/uL High 1.60-5.50 [facility] Comment on above: Result Comment: Perc ent differential counts (%) should be interpreted in the context of the absolute cell counts (cells/uL). Performed By: #### 5 7021-8 #### KELECHI Garcia ([id number]) [facility] ([facility]) [id number] [place] [address] 06195 Neutrophils/100 WBC (Bld) 79.7 % Normal 40.0-80.0 [facility] Comment on above: Performed By: #### 5 7021-8 #### KELECHI Garcia ([id number]) [facility] ([facility]) [id number] [place] [address] 89312 Nucleated RBC/100 WBC (Bld) [Ratio] 0.0 /100 WBCs Normal 0.0-0.0 [facility] Comment on above: Performed By: #### 5 7021-8 #### KELECHI Garcia ([id number]) [facility] ([facility]) [address] [place] [address] Platelets (Bld) [#/Vol] 353 x10*3/uL Normal 150-450 [facility] Comment on above: Performed By: #### 5 7021-8 #### KELECHI Garcia ([id number]) [facility] ([facility]) [id number] [place] [address] 00573 RBC (Bld) [#/Vol] 2.40 x10*6/uL Low 4.00-5.20 [facility] Comment on above: Performed By: #### 5 7021-8 #### KELECHI Garcia ([id number]) [facility] ([facility]) [address] [place] [address] WBC (Bld) [#/Vol] 15.5 x10*3/uL High 4.4-11.3 [facility] Comment on above: Performed By: #### 5 7021-8 #### KELECHI Garcia ([id number]) [facility] ([facility]) [address] [place] [address] Basophils (Bld) [#/Vol] 0.16 10*3/uL High [facility] Basophils/100 WBC (Bld) 1.1 % 0.0 - 2.0 % [facility] Eosinophils (Bld) [#/Vol] 0.46 10*3/uL [facility] Eosinophils/100 WBC (Bld) 3.2 % 0.0 - 6.0 % [facility] Immature granulocytes (Bld) [#/Vol] 0.07 10*3/uL [facility] Immature granulocytes/100 WBC (Bld) 0.5 % 0.0 - 0.9 % [facility] Comment on above: Immature Granulocyte Count (IG) includes promyelocytes, myelocytes and metamyelocytes but does not include bands. Percent differential counts (%) should be interpreted in the context of the absolute cell counts (cells/UL). Lymphocytes (Bld) [#/Vol] 1.77 10*3/uL [facility] Lymphocytes/100 WBC (Bld) 12.3 % 13.0 - 44.0 % [facility] Monocytes (Bld) [#/Vol] 1.25 10*3/uL High [facility] Monocytes/100 WBC (Bld) 8.7 % 2.0 - 10.0 % [facility] Neutrophils (Bld) [#/Vol] 10.69 10*3/uL [facility] Comment on above: Percent differential counts (%) should be interpreted in the context of the absolute cell counts (cells/uL). Neutrophils/100 WBC (Bld) 74.2 % 40.0 - 80.0 % [facility] Basophils (Bld) [#/Vol] 0.16 x10*3/uL High 0.00-0.10 [facility] Comment on above: Performed By: #### 5 7021-8 #### KELECHI VELEZMOTZER L ([id number]) [facility] ([facility]) [address] [place] [address] 87163 Basophils/100 WBC (Bld) 1.1 % Normal 0.0-2.0 [facility] Comment on above: Performed By: #### 5 7021-8 #### KELECHI VELEZMOTZER L ([id number]) [facility] ([facility]) [address] [place] [address] 53853 Eosinophils (Bld) [#/Vol] 0.46 x10*3/uL High 0.00-0.40 [facility] Comment on above: Performed By: #### 5 7021-8 #### KELECHI VELEZMOTZER L ([id number]) [facility] ([facility]) [address] [place] [address] 10674 Eosinophils/100 WBC (Bld) 3.2 % Normal 0.0-6.0 [facility] Comment on above: Performed By: #### 5 7021-8 #### KELECHI VELEZMOTZER L ([id number]) [facility] ([facility]) [address] [place] [address] 06834 Immature granulocytes (Bld) [#/Vol] 0.07 x10*3/uL Normal 0.00-0.50 [facility] Comment on above: Performed By: #### 5 7021-8 #### KELECHI VELEZMOTZER L ([id number]) [facility] ([facility]) [address] [place] [address] 09543 Immature granulocytes/100 WBC (Bld) 0.5 % Normal 0.0-0.9 [facility] Comment on above: Result Comment: Jannie ture Granulocyte Count (IG) includes promyelocytes, myelocytes and metamyelocytes but does not include bands. Percent differential counts (%) should be interpreted in the context of the absolute cell counts (cells/UL). Performed By: #### 5 7021-8 #### KELECHI VELEZMOTZER L ([id number]) [facility] ([facility]) [id number] [place] [address] 32942 Lymphocytes (Bld) [#/Vol] 1.77 x10*3/uL Normal 0.80-3.00 [facility] Comment on above: Performed By: #### 5 7021-8 #### KELECHI Garcia ([id number]) [facility] ([facility]) [address] [place] [address] 28964 Lymphocytes/100 WBC (Bld) 12.3 % Normal 13.0-44.0 [facility] Comment on above: Performed By: #### 5 7021-8 #### KELECHI Garcia ([id number]) [facility] ([facility]) [address] [place] [address] 08516 Monocytes (Bld) [#/Vol] 1.25 x10*3/uL High 0.05-0.80 [facility] Comment on above: Performed By: #### 5 7021-8 #### KELECHI Garcia ([id number]) [facility] ([facility]) [address] [place] [address] 78359 Monocytes/100 WBC (Bld) 8.7 % Normal 2.0-10.0 [facility] Comment on above: Performed By: #### 5 7021-8 #### KELECHI Garcia ([id number]) [facility] ([facility]) [address] [place] [address] 63938 Neutrophils (Bld) [#/Vol] 10.69 x10*3/uL High 1.60-5.50 [facility] Comment on above: Result Comment: Perc ent differential counts (%) should be interpreted in the context of the absolute cell counts (cells/uL). Performed By: #### 5 7021-8 #### KELECHI Garcia ([id number]) [facility] ([facility]) [address] [place] [address] 22317 Neutrophils/100 WBC (Bld) 74.2 % Normal 40.0-80.0 [facility] Comment on above: Performed By: #### 5 7021-8 #### KELECHI Garcia ([id number]) [facility] ([facility]) [address] [place] [address] Basophils (Bld) [#/Vol] 0.18 10*3/uL High [facility] Basophils/100 WBC (Bld) 1.2 % 0.0 - 2.0 % [facility] Eosinophils (Bld) [#/Vol] 0.39 10*3/uL [facility] Eosinophils/100 WBC (Bld) 2.5 % 0.0 - 6.0 % [facility] Erythrocyte distribution width (RBC) [Ratio] 16.3 % High 11.5 - 14.5 % [facility] Hematocrit (Bld) [Volume fraction] 21.9 % Low 36.0 - 46.0 % [facility] Hemoglobin (Bld) [Mass/Vol] 7 g/dL Low 12.0 - 16.0 g/dL [facility] Immature granulocytes (Bld) [#/Vol] 0.09 10*3/uL [facility] Immature granulocytes/100 WBC (Bld) 0.6 % 0.0 - 0.9 % [facility] Comment on above: Immature Granulocyte Count (IG) includes promyelocytes, myelocytes and metamyelocytes but does not include bands. Percent differential counts (%) should be interpreted in the context of the absolute cell counts (cells/UL). Interpretation and review of laboratory results Abnormal [facility] Lymphocytes (Bld) [#/Vol] 1.77 10*3/uL [facility] Lymphocytes/100 WBC (Bld) 11.4 % 13.0 - 44.0 % [facility] MCH (RBC) [Entitic mass] 30.4 pg 26.0 - 34.0 pg [facility] MCHC (RBC) [Mass/Vol] 32 g/dL 32.0 - 36.0 g/dL [facility] MCV (RBC) [Entitic vol] 95 fL 80 - 100 fL [facility] Monocytes (Bld) [#/Vol] 1.34 10*3/uL High [facility] Monocytes/100 WBC (Bld) 8.6 % 2.0 - 10.0 % [facility] Neutrophils (Bld) [#/Vol] 11.75 10*3/uL High [facility] Comment on above: Percent differential counts (%) should be interpreted in the context of the absolute cell counts (cells/uL). Neutrophils/100 WBC (Bld) 75.7 % 40.0 - 80.0 % [facility] Nucleated RBC/100 WBC (Bld) [Ratio] 0 % [facility] Platelets (Bld) [#/Vol] 341 10*3/uL [facility] RBC (Bld) [#/Vol] 2.3 10*6/uL Low [facility] WBC (Bld) [#/Vol] 15.5 10*3/uL High [facility] Basophils (Bld) [#/Vol] 0.18 x10*3/uL High 0.00-0.10 [facility] Comment on above: Performed By: #### 5 7021-8 #### KELECHI Garcia ([id number]) [facility] ([facility]) [address] [place] [address] Basophils/100 WBC (Bld) 1.2 % Normal 0.0-2.0 [facility] Comment on above: Performed By: #### 5 7021-8 #### KELECHI Garcia ([id number]) [facility] ([facility]) [id number] [place] [address] 87490 Eosinophils (Bld) [#/Vol] 0.39 x10*3/uL Normal 0.00-0.40 [facility] Comment on above: Performed By: #### 5 7021-8 #### KELECHI Garcia ([id number]) [facility] ([facility]) [address] [place] [address] Eosinophils/100 WBC (Bld) 2.5 % Normal 0.0-6.0 [facility] Comment on above: Performed By: #### 5 7021-8 #### KELECHI Garcia ([id number]) [facility] ([facility]) [address] [place] [address] Erythrocyte distribution width (RBC) [Ratio] 16.3 % High 11.5-14.5 [facility] Comment on above: Performed By: #### 5 7021-8 #### KELECHI Garcia ([id number]) [facility] ([facility]) [address] [place] [address] 65693 Hematocrit (Bld) [Volume fraction] 21.9 % Low 36.0-46.0 [facility] Comment on above: Performed By: #### 5 7021-8 #### KELECHI Garcia ([id number]) [facility] ([facility]) [address] [place] [address] 95337 Hemoglobin (Bld) [Mass/Vol] 7.0 g/dL Low 12.0-16.0 [facility] Comment on above: Performed By: #### 5 7021-8 #### KELECHI Garcia ([id number]) [facility] ([facility]) [address] [place] [address] 80654 Immature granulocytes (Bld) [#/Vol] 0.09 x10*3/uL Normal 0.00-0.50 [facility] Comment on above: Performed By: #### 5 7021-8 #### KELECHI Garcia ([id number]) [facility] ([facility]) [address] [place] [address] 19469 Immature granulocytes/100 WBC (Bld) 0.6 % Normal 0.0-0.9 [facility] Comment on above: Result Comment: Jannie ture Granulocyte Count (IG) includes promyelocytes, myelocytes and metamyelocytes but does not include bands. Percent differential counts (%) should be interpreted in the context of the absolute cell counts (cells/UL). Performed By: #### 5 7021-8 #### KELECHI Garcia ([id number]) [facility] ([facility]) [address] [place] [address] 06034 Lymphocytes (Bld) [#/Vol] 1.77 x10*3/uL Normal 0.80-3.00 [facility] Comment on above: Performed By: #### 5 7021-8 #### KELECHI Garcia ([id number]) [facility] ([facility]) [address] [place] [address] Lymphocytes/100 WBC (Bld) 11.4 % Normal 13.0-44.0 [facility] Comment on above: Performed By: #### 5 7021-8 #### KELECHI Garcia ([id number]) [facility] ([facility]) [id number] [place] [address] 29517 MCH (RBC) [Entitic mass] 30.4 pg Normal 26.0-34.0 [facility] Comment on above: Performed By: #### 5 7021-8 #### KELECHI Garcia ([id number]) [facility] ([facility]) [address] [place] [address] 32691 MCHC (RBC) [Mass/Vol] 32.0 g/dL Normal 32.0-36.0 [facility] Comment on above: Performed By: #### 5 7021-8 #### KELECHI Garcia ([id number]) [facility] ([facility]) [id number] [place] [address] 59640 MCV (RBC) [Entitic vol] 95 fL Normal 80-100 [facility] Comment on above: Performed By: #### 5 7021-8 #### KELECHI Garcia ([id number]) [facility] ([facility]) [address] [place] [address] 30617 Monocytes (Bld) [#/Vol] 1.34 x10*3/uL High 0.05-0.80 [facility] Comment on above: Performed By: #### 5 7021-8 #### KELECHI Garcia ([id number]) [facility] ([facility]) [id number] [place] [address] 86679 Monocytes/100 WBC (Bld) 8.6 % Normal 2.0-10.0 [facility] Comment on above: Performed By: #### 5 7021-8 #### KELECHI Garcia ([id number]) [facility] ([facility]) [address] [place] [address] 43603 Neutrophils (Bld) [#/Vol] 11.75 x10*3/uL High 1.60-5.50 [facility] Comment on above: Result Comment: Perc ent differential counts (%) should be interpreted in the context of the absolute cell counts (cells/uL). Performed By: #### 5 7021-8 #### KELECHI VELÁZQUEZ L ([id number]) [facility] ([facility]) [address] [place] [address] Neutrophils/100 WBC (Bld) 75.7 % Normal 40.0-80.0 [facility] Comment on above: Performed By: #### 5 7021-8 #### KELECHI VELÁZQUEZ L ([id number]) [facility] ([facility]) [address] [place] [address] Nucleated RBC/100 WBC (Bld) [Ratio] 0.0 /100 WBCs Normal 0.0-0.0 [facility] Comment on above: Performed By: #### 5 7021-8 #### KELECHI VELÁZQUEZ L ([id number]) [facility] ([facility]) [address] [place] [address] Platelets (Bld) [#/Vol] 341 x10*3/uL Normal 150-450 [facility] Comment on above: Performed By: #### 5 7021-8 #### KELECHI VELÁZQUEZ L ([id number]) [facility] ([facility]) [address] [place] [address] RBC (Bld) [#/Vol] 2.30 x10*6/uL Low 4.00-5.20 [facility] Comment on above: Performed By: #### 5 7021-8 #### KELECHI VELÁZQUEZ L ([id number]) [facility] ([facility]) [address] [place] [address] WBC (Bld) [#/Vol] 15.5 x10*3/uL High 4.4-11.3 [facility] Comment on above: Performed By: #### 5 7021-8 #### KELECHI Garcia ([id number]) [facility] ([facility]) [id number] [place] [address] 48722 CBC panel Auto (Bld)on 08-31 Erythrocyte distribution width (RBC) [Ratio] 15.9 % High 11.5 - 14.5 % [facility] Hematocrit (Bld) [Volume fraction] 26.1 % Low 36.0 - 46.0 % [facility] Hemoglobin (Bld) [Mass/Vol] 8.2 g/dL Low 12.0 - 16.0 g/dL [facility] Interpretation and review of laboratory results Abnormal [facility] MCH (RBC) [Entitic mass] 30.3 pg 26.0 - 34.0 pg [facility] MCHC (RBC) [Mass/Vol] 31.4 g/dL Low 32.0 - 36.0 g/dL [facility] MCV (RBC) [Entitic vol] 96 fL 80 - 100 fL [facility] Nucleated RBC/100 WBC (Bld) [Ratio] 0 % [facility] Platelets (Bld) [#/Vol] 450 10*3/uL [facility] RBC (Bld) [#/Vol] 2.71 10*6/uL Low [facility] WBC (Bld) [#/Vol] 15.2 10*3/uL High [facility] Erythrocyte distribution width (RBC) [Ratio] 15.9 % High 11.5-14.5 [facility] Comment on above: Performed By: #### 5 7021-8 #### KELECHI Garcia ([id number]) [facility] ([facility]) [address] [place] [address] Hematocrit (Bld) [Volume fraction] 26.1 % Low 36.0-46.0 [facility] Comment on above: Performed By: #### 5 7021-8 #### KELECHI Garcia ([id number]) [facility] ([facility]) [id number] [place] [address] 83843 Hemoglobin (Bld) [Mass/Vol] 8.2 g/dL Low 12.0-16.0 [facility] Comment on above: Performed By: #### 5 7021-8 #### KELECHI Garcia ([id number]) [facility] ([facility]) [id number] [place] [address] 28603 MCH (RBC) [Entitic mass] 30.3 pg Normal 26.0-34.0 [facility] Comment on above: Performed By: #### 5 7021-8 #### KELECHI Garcia ([id number]) [facility] ([facility]) [id number] [place] [address] 66578 MCHC (RBC) [Mass/Vol] 31.4 g/dL Low 32.0-36.0 [facility] Comment on above: Performed By: #### 5 7021-8 #### KELECHI Garcia ([id number]) [facility] ([facility]) [address] [place] [address] 69517 MCV (RBC) [Entitic vol] 96 fL Normal 80-100 [facility] Comment on above: Performed By: #### 5 7021-8 #### KELECHI Garcia ([id number]) [facility] ([facility]) [address] [place] [address] 47613 Nucleated RBC/100 WBC (Bld) [Ratio] 0.0 /100 WBCs Normal 0.0-0.0 [facility] Comment on above: Performed By: #### 5 7021-8 #### KELECHI Garcia ([id number]) [facility] ([facility]) [id number] [place] [address] 54870 Platelets (Bld) [#/Vol] 450 x10*3/uL Normal 150-450 [facility] Comment on above: Performed By: #### 5 7021-8 #### KELECHI Garcia ([id number]) [facility] ([facility]) [address] [place] [address] 29467 RBC (Bld) [#/Vol] 2.71 x10*6/uL Low 4.00-5.20 [facility] Comment on above: Performed By: #### 5 7021-8 #### KELECHI Garcia ([id number]) [facility] ([facility]) [address] [place], [place] [phone] WBC (Bld) [#/Vol] 15.2 x10*3/uL High 4.4-11.3 [facility] Comment on above: Performed By: #### 5 7021-8 #### KELECHI Garcia ([id number]) [facility] ([facility]) [address] [place] [address] Complete blood count panelon 08-31-2024 Erythrocyte distribution width (RBC) [Ratio] 16.3 % High 11.5-14.5 [facility] Comment on above: Performed By: #### 5 8410-2 #### KELECHI Garcia ([id number]) [facility] ([facility]) [address] [place] [address] Performed By: #### 5 7021-8 #### KELECHI Garcia ([id number]) [facility] ([facility]) [address] [place] [address] Hematocrit (Bld) [Volume fraction] 22.2 % Low 36.0-46.0 [facility] Comment on above: Performed By: #### 5 8410-2 #### KELECHI Garcia ([id number]) [facility] ([facility]) [address] [place], [place] [phone] Performed By: #### 5 7021-8 #### KELECHI Garcia ([id number]) [facility] ([facility]) [address] [place], [place] [phone] Hemoglobin (Bld) [Mass/Vol] 7.2 g/dL Low 12.0-16.0 [facility] Comment on above: Performed By: #### 5 8410-2 #### KELECHI Garcia ([id number]) [facility] ([facility]) [address] [place], [place] [phone] Performed By: #### 5 7021-8 #### KELECHI Garcia ([id number]) [facility] ([facility]) [address] [place] [address] MCH (RBC) [Entitic mass] 30.8 pg Normal 26.0-34.0 [facility] Comment on above: Performed By: #### 5 8410-2 #### KELECHI Garcia ([id number]) [facility] ([facility]) [address] [place], [place] [id number] Performed By: #### 5 7021-8 #### KELECHI Garcia ([id number]) [facility] ([facility]) [address] [place] [address] MCHC (RBC) [Mass/Vol] 32.4 g/dL Normal 32.0-36.0 [facility] Comment on above: Performed By: #### 5 8410-2 #### KELECHI Garcia ([id number]) [facility] ([facility]) [address] [place] [address] Performed By: #### 5 7021-8 #### KELECHI Garica ([id number]) [facility] ([facility]) [address] [place] [address] MCV (RBC) [Entitic vol] 95 fL Normal 80-100 [facility] Comment on above: Performed By: #### 5 8410-2 #### KELECHI Garcia ([id number]) [facility] ([facility]) [address] [place] [address] Performed By: #### 5 7021-8 #### KELECHI Garcia ([id number]) [facility] ([facility]) [address] [place], [place] [id number] Nucleated RBC/100 WBC (Bld) [Ratio] 0.0 /100 WBCs Normal 0.0-0.0 [facility] Comment on above: Performed By: #### 5 8410-2 #### KELECHI Garcia ([id number]) [facility] ([facility]) [address] [place], [place] [id number] Performed By: #### 5 7021-8 #### KELECHI Garcia ([id number]) [facility] ([facility]) [address] [place] [address] Platelets (Bld) [#/Vol] 332 x10*3/uL Normal 150-450 [facility] Comment on above: Performed By: #### 5 8410-2 #### KELECHI VELÁZQUEZ L ([id number]) [facility] ([facility]) [address] [place] [address] Performed By: #### 5 7021-8 #### KELECHI VELÁZQUEZ L ([id number]) [facility] ([facility]) [address] [place] [address] RBC (Bld) [#/Vol] 2.34 x10*6/uL Low 4.00-5.20 [facility] Comment on above: Performed By: #### 5 8410-2 #### KELECHI Garcia ([id number]) [facility] ([facility]) [address] [place], [place] [id number] Performed By: #### 5 7021-8 #### KELECHI VELÁZQUEZ L ([id number]) [facility] ([facility]) [address] [place] [address] WBC (Bld) [#/Vol] 14.4 x10*3/uL High 4.4-11.3 [facility] Comment on above: Performed By: #### 5 8410-2 #### KELECHI Garcia ([id number]) [facility] ([facility]) [address] [place], [place] [phone] Performed By: #### 5 7021-8 #### KELECHI VELÁZQUEZ L ([id number]) [facility] ([facility]) [address] [place], [place] [id number] Comprehensive metabolic 2000 panelon 08-31-2024 Albumin BCP dye [Mass/Vol] 3.2 g/dL Low 3.4 - 5.0 g/dL [facility] ALP [Catalytic activity/Vol] 89 U/L 33 - 136 U/L [facility] ALT With P-5'-P [Catalytic activity/Vol] 18 U/L 7 - 45 U/L [facility] Comment on above: Patients treated wit h Sulfasalazine may generate falsely decreased results for ALT. Anion gap [Moles/Vol] 19 mmol/L [facility] AST With P-5'-P [Catalytic activity/Vol] 43 U/L High 9 - 39 U/L [facility] Bilirubin [Mass/Vol] 0.7 mg/dL 0.0 - 1 .2 mg/dL [facility] Calcium [Mass/Vol] 7.8 mg/dL Low 8.6 - 10. 6 mg/dL [facility] Chloride [Moles/Vol] 88 mmol/L Low 98 - 10 7 mmol/L [facility] CO2 [Moles/Vol] 29 mmol/L 21 - 32 mmol/L [facility] Creatinine [Mass/Vol] 7.69 mg/dL High 0.50 - 1.05 mg/dL [facility] GFR/1.73 sq M.predicted among non-blacks MDRD (S/P/Bld) [Vol rate/Area] 5 mL/min/{1.73_m2} Low - PINF [facility] Comment on above: Calculations of katy mated GFR are performed using the 2020 CKD-EPI Study Refit equation without the race variable for the IDMS-Traceable creatinine methods. https://jasn.asnjournals.org/content/early/ASN.2020 748155 Glucose [Mass/Vol] 86 mg/dL 74 - 99 mg/dL [facility] Potassium [Moles/Vol] 4.1 mmol/L 3.5 - 5.3 mmol/L [facility] Protein [Mass/Vol] 5.8 g/dL Low 6.4 - 8.2 g/dL [facility] Sodium [Moles/Vol] 132 mmol/L Low 136 - 145 mmol/L [facility] Urea nitrogen [Mass/Vol] 47 mg/dL High 6 - 23 mg/dL [facility] Albumin BCP dye [Mass/Vol] 3.2 g/dL Low 3.4-5.0 [facility] Comment on above: Performed By: #### 2 4323-8 #### KELECHI Garcia ([id number]) [facility] ([facility]) [address] [place] [address] ALP [Catalytic activity/Vol] 89 U/L Normal 33-136 [facility] Comment on above: Performed By: #### 2 4323-8 #### KELECHI Garcia ([id number]) [facility] ([facility]) [address] [place] [address] ALT With P-5'-P [Catalytic activity/Vol] 18 U/L Normal 7-45 [facility] Comment on above: Result Comment: Patsy ents treated with Sulfasalazine may generate falsely decreased results for ALT. Performed By: #### 2 4323-8 #### KELECHI Garcia ([id number]) [facility] ([facility]) [address] [place] [address] Anion gap [Moles/Vol] 19 mmol/L Normal [facility] Comment on above: Performed By: #### 2 4323-8 #### KELECHI Garcia ([id number]) [facility] ([facility]) [address] [place] [address] AST With P-5'-P [Catalytic activity/Vol] 43 U/L High 9-39 [facility] Comment on above: Performed By: #### 2 4323-8 #### KELECHI Garcia ([id number]) [facility] ([facility]) [address] [place] [address] Bilirubin [Mass/Vol] 0.7 mg/dL Normal 0.0-1.2 [facility] Comment on above: Performed By: #### 2 4323-8 #### KELECHI Garcia ([id number]) [facility] ([facility]) [id number] [place] [address] Calcium [Mass/Vol] 7.8 mg/dL Low 8.6-10.6 [facility] Comment on above: Performed By: #### 2 4323-8 #### KELECHI Garcia ([id number]) [facility] ([facility]) [address] [place] [address] Chloride [Moles/Vol] 88 mmol/L Low 98-107 [facility] Comment on above: Performed By: #### 2 4323-8 #### KELECHI Garcia ([id number]) [facility] ([facility]) [address] [place] [address] CO2 [Moles/Vol] 29 mmol/L Normal 21-32 [facility] Comment on above: Performed By: #### 2 4323-8 #### KELECHI Garcia ([id number]) [facility] ([facility]) [address] [place] [address] Creatinine [Mass/Vol] 7.69 mg/dL High 0.50-1.05 [facility] Comment on above: Performed By: #### 2 4323-8 #### KELECHI Garcia ([id number]) [facility] ([facility]) [address] [place] [address] Glomerular filtration rate/1.73 sq M.predicted 5 mL/min/1.73m*2 Low >60 [facility] Comment on above: Result Comment: Calc ulations of estimated GFR are performed using the 2020 CKD-EPI Study Refit equation without the race variable for the IDMS-Traceable creatinine methods. https://jasn.asnjournals.org/content/early//ASN.2020 979196 Performed By: #### 2 4323-8 #### KELECHI Garcia ([id number]) [facility] ([facility]) [address] [place] [address] Glucose [Mass/Vol] 86 mg/dL Normal 74-99 [facility] Comment on above: Performed By: #### 2 4323-8 #### KELECHI Garcia ([id number]) [facility] ([facility]) [address] [place] [address] Potassium [Moles/Vol] 4.1 mmol/L Normal 3.5-5.3 [facility] Comment on above: Performed By: #### 2 4323-8 #### KELECHI VELÁZQUEZ L ([id number]) [facility] ([facility]) [address] [place] [address] Protein [Mass/Vol] 5.8 g/dL Low 6.4-8.2 [facility] Comment on above: Performed By: #### 2 4323-8 #### KELECHI WEBSTERER L ([id number]) [facility] ([facility]) [id number] [place] [address] Sodium [Moles/Vol] 132 mmol/L Low 136-145 [facility] Comment on above: Performed By: #### 2 4323-8 #### KELECHI WEBSTERER L ([id number]) [facility] ([facility]) [address] [place] [address] Urea nitrogen [Mass/Vol] 47 mg/dL High 6-23 [facility] Comment on above: Performed By: #### 2 4323-8 #### KELECHI VELÁZQUEZ L ([id number]) [facility] ([facility]) [id number] [place] [address] HBV surface Ab Qn (S)on 08-04 Interpretation and review of laboratory results Abnormal [facility] HBV surface Ag IA Qlon 08-31 Interpretation and review of laboratory results Normal [facility] Hepatitis B surface antibody on 08-31-2024 HBV surface Ab Qn (S) High [facility] Comment on above: Interpretive Criteri a: [...] surface Ag IA Ql Non-Reactive Nonreactive U [facility] Comment on above: Biotin interference may cause falsely decreased results. Patients taking a Biotin dose of up to 5 mg/day should refrain from taking Biotin for 24 hours before sample collection. Providers may contact their local laboratory for further information. Hepatitis B virus surface Ab on 08-31-2024 HBV surface Ab Qn (S) >1000.0 High <10.0 [facility] Comment on above: Result Comment: Inte rpretive Criteria: <10 mIU/mL Nonreactive >=10 mIU/mL Reactive Biotin interference may cause falsely decreased results. Patients taking a Biotin dose of up to 5 mg/day should refrain from taking Biotin for 24 hours before sample collection. Providers may contact their local laboratory for further information. Performed By: #### 5 7021-8 #### KELECHI Garcia ([id number]) [facility] ([facility]) [address] [place] [address] Hepatitis B virus surface Ag on 08-31-2024 HBV surface Ag IA Ql Non-Reactive Normal Nonreactive [facility] Comment on above: Result Comment: Biot in interference may cause falsely decreased results. Patients taking a Biotin dose of up to 5 mg/day should refrain from taking Biotin for 24 hours before sample collection. Providers may contact their local laboratory for further information. Performed By: #### 5 7021-8 #### KELECHI Garcia ([id number]) [facility] ([facility]) [address] [place], [place] [address] Iron and Iron binding capaci ty panelon 08-31-2024 Iron [Mass/Vol] 29 ug/dL Low 35 - 150 ug/dL [facility] Iron binding capacity [Mass/Vol] 139 ug/dL Low 240 - 445 ug/dL [facility] Iron binding capacity.unsaturated [Mass/Vol] 110 ug/dL 110 - 370 ug/dL [facility] Iron saturation [Mass fraction] 21 % Low 25 - 45 % [facility] Iron [Mass/Vol] 29 ug/dL Low 35-150 [facility] Comment on above: Performed By: #### 5 0190-8 #### KELECHI Garcia ([id number]) [facility] ([facility]) [address] [place], [place] [address] Iron binding capacity [Mass/Vol] 139 ug/dL Low 240-445 [facility] Comment on above: Performed By: #### 5 0190-8 #### KELECHI Garcia ([id number]) [facility] ([facility]) [id number] [place] [address] Iron binding capacity.unsaturated [Mass/Vol] 110 ug/dL Normal 110-370 [facility] Comment on above: Performed By: #### 5 0190-8 #### KELECHI Garcia ([id number]) [facility] ([facility]) [id number] [place] [address] Iron saturation [Mass fraction] 21 % Low 25-45 [facility] Comment on above: Performed By: #### 5 0190-8 #### KELECHI Garcia ([id number]) [facility] ([facility]) [address] [place] [address] Laboratory - Hematology and Cell countson 08-31-2024 Erythrocyte distribution width (RBC) [Ratio] 16.3 % High 11.5 - 14.5 % [facility] Hematocrit (Bld) [Volume fraction] 22.2 % Low 36.0 - 46.0 % [facility] Hemoglobin (Bld) [Mass/Vol] 7.2 g/dL Low 12.0 - 16.0 g/dL [facility] MCH (RBC) [Entitic mass] 30.8 pg 26.0 - 34.0 pg [facility] MCHC (RBC) [Mass/Vol] 32.4 g/dL 32.0 - 36.0 g/dL [facility] MCV (RBC) [Entitic vol] 95 fL 80 - 100 fL [facility] Nucleated RBC/100 WBC (Bld) [Ratio] 0 % [facility] Platelets (Bld) [#/Vol] 332 10*3/uL [facility] RBC (Bld) [#/Vol] 2.34 10*6/uL Low [facility] WBC (Bld) [#/Vol] 14.4 10*3/uL High [facility] Magnesiumon 08-31-2024 Magnesium [Mass/Vol] 2.04 mg/dL 1.60 - 2.40 mg/dL [facility] Magnesium [Mass/Vol] 2.04 mg/dL Normal 1.60-2.40 [facility] Comment on above: Performed By: #### 1 9123-9 #### KELECHI Garcia ([id number]) [facility] ([facility]) [address] [place] [address] Magnesium [Mass/Vol]on 08-31 Interpretation and review of laboratory results Normal [facility] No Panel Informationon 08-31 Interpretation and review of laboratory results Abnormal [facility] Interpretation and review of laboratory results Abnormal [facility] Interpretation and review of laboratory results Abnormal [facility] PT and aPTT panel Coag (PPP) on 08-31-2024 aPTT Coag (PPP) [Time] 25 s Low [facility] INR Coag (PPP) [Relative time] 1 {INR} 0.9 - 1.1 [facility] Interpretation and review of laboratory results Abnormal [facility] PT Coag (PPP) [Time] 11.4 s [facility] The APTT is no longe r used for monitoring Unfractionated Heparin Therapy. For monitoring Heparin Therapy, use the Heparin Assay. [facility] aPTT Coag (PPP) [Time] 25 s Low 26-36 [facility] Comment on above: Order Comment: The A PTT is no longer used for monitoring Unfractionated Heparin Therapy. For monitoring Heparin Therapy, use the Heparin Assay. Performed By: #### 3 4529-8 #### KELECHI Garcia ([id number]) [facility] ([facility]) [address] [place] [address] INR Coag (PPP) [Relative time] 1.0 Normal 0.9-1.1 [facility] Comment on above: Order Comment: The A PTT is no longer used for monitoring Unfractionated Heparin Therapy. For monitoring Heparin Therapy, use the Heparin Assay. Performed By: #### 3 4529-8 #### KELECHI Garcia ([id number]) [facility] ([facility]) [address] [place] [address] PT Coag (PPP) [Time] 11.4 s Normal 9.8-12.4 [facility] Comment on above: Order Comment: The A PTT is no longer used for monitoring Unfractionated Heparin Therapy. For monitoring Heparin Therapy, use the Heparin Assay. Performed By: #### 3 4529-8 #### KELECHI Garcia ([id number]) [facility] ([facility]) [id number] [place] [address] Phosphateon 08-31-2024 Phosphate [Mass/Vol] 7.0 mg/dL High 2.5-4.9 [facility] Comment on above: Performed By: #### 2 777-1 #### KELECHI Garcia ([id number]) [facility] ([facility]) [id number] [place] [address] Phosphate [Mass/Vol]on 08-31 Interpretation and review of laboratory results Abnormal [facility] Phosphoruson 08-31-2024 Phosphate [Mass/Vol] 7 mg/dL High 2.5 - 4 .9 mg/dL [facility] Vancomycinon 08-31-2024 Vancomycin [Mass/Vol] 35.9 ug/mL High 5.0 - 20.0 ug/mL [facility] Vancomycin [Mass/Vol] 35.9 ug/mL High 5.0-20.0 [facility] Comment on above: Order Comment: ADD [...] By: #### 5 7021-8 #### KELECHI Garcia ([id number]) [facility] ([facility]) [address] [place] [address] Vancomycin [Mass/Vol]on 08-04 Vancomycin levels can be [...] 30.0-40.0 ug/mL Trough (all ages): 10.0-20.0 ug/mL [facility] US RLE Soft Tissue OR Joint [...] ultrasound examination. Report Dictated on Authenticated by: Hnoorio [place] On: 08/30/2024 10:40 Read by: HONORIO GRANDE MD, MD Date: 08/30/2024 10:40 [facility] CTA RT Lower Extremity w/wo contraston 08-29-2024 [...] AM EDT Read by: ROBSON GENAO MD, Date: 08/30/2024 07:31 [facility] Comment on above: Order Comment: TRAUM A Please call CT department to schedule [phone] Leukodepleted Red Cells Rele minerva 08-29-[id number] [facility] Comment on above: Performed By: #### R LRC ####[facility] [place] [address] [facility] Comment on above: Performed By: #### R LRC ####[facility] [address] [address] Rel Date 08/29/2024 [facility] Comment on above: Performed By: #### R LRC ####[facility] [place] [address] [facility] Comment on above: Performed By: #### R LRC ####[facility] [address] [place] [address] [facility] Comment on above: Performed By: #### R LRC ####[place] [address] [id number] [facility] Comment on above: Performed By: #### R LRC ####[place] [address] CT RT Lower Extremity wo con traston [...] RONALD RICE MD, MD Date: 08/27/2024 03:58 [facility] Comment on above: Order Comment: witho ut Contrast (No Oral or IV contrast) - look for abscess, right thigh Leukodepleted Red Cells [facility] 08-20[id number] [facility] Comment on above: Performed By: #### R LRC ####[place] [address] Rel By [facility] Comment on above: Performed By: #### R LRC ####[place] [address] Rel Date 08/20/24 [facility] Comment on above: Performed By: #### R LRC ####[place] [address] Rel Time 09:30 [facility] Comment on above: Performed By: #### R LRC ####[place] [address] [facility] Comment on above: Performed By: #### R LRC ####[place] [address] [id number] [facility] Comment on above: Performed By: #### R LRC ####[place] [address] XR Chest 1 view-Mobileon XR Chest 1 view-Mobile CHEST CPT 29160 - RADIOLOGIC EXAMINATION, CHEST; SINGLE VIEW COMPARISON: [...] CARLY GIBSON MD, MD Date: 08/18/2024 09:47 [facility] Comment on above: Order Comment: TRAUM A [...] JORGITO LA MD, MD Date: 08/17/2024 19:11 [facility] XR Chest 1 view-Mobile Chest radiograph Comparison: August 16. Findings: Endotracheal tube above liane. NG tube below diaphragm. No pneumothorax. Mild vascular congestion. Persistent subtle bilateral pulmonary opacities overall improving. No significant effusion. Heart size stable. Impression: No pneumothorax Report electronically signed by: Jamie Hays MD on August 17, 08:04 PM EDT Read by: JAMIE HAYS DO, MD Date: 08/17/2024 20:04 [facility] Comment on above: Order Comment: Paul lyons 0600 CK Totalon 08-16-2024 CK [Catalytic activity/Vol] 20 U/L Low 26-192 [facility] Comment on above: Performed By: #### C K ####[facility] [place] [address] US Aspiration Absc/Hemat/Bul /Cyston 08-16-2024 US Aspiration Absc/Hemat/Bul/Cyst ULTRASOUND GUIDED ABSCESS ASPIRATION: CLINICAL INDICATION: Right thigh collection. TECHNIQUE: Following discussion with the patient regarding risks, benefits and alternatives along with timeout to document the patient's name, site and nature of the procedure, the skin was sterilely prepared and local anesthesia was applied. Under real-time ultrasound guidance, a 5 Omani Yueh needle was advanced into the collection [...] FRANCO MAJANO MD, MD Date: 08/16/2024 16:13 [facility] US Guid Ndl Plcmt W/Imageon 08-16-2024 US Guid Ndl Plcmt W/Image ULTRASOUND GUIDED ABSCESS ASPIRATION: CLINICAL INDICATION: Right thigh collection. TECHNIQUE: Following discussion with the patient regarding risks, benefits and alternatives along with timeout to document the patient's name, site and nature of the procedure, the skin was sterilely prepared and local anesthesia was applied. Under real-time ultrasound guidance, a 5 Omani Yueh needle was advanced into the collection [...] FRANCO MAJANO MD, MD Date: 08/16/2024 16:13 [facility] XR Abdomen single AP view-KU Bon 08-16-2024 [...] CARLY GIBSON MD, MD Date: 08/16/2024 07:45 [facility] XR Chest 1 view-Mobileon XR Chest 1 view-Mobile CHEST CPT 64363 - RADIOLOGIC EXAMINATION, CHEST; SINGLE VIEW COMPARISON: [...] CARLY GIBSON MD, MD Date: 08/16/2024 07:44 [facility] XR Hip Right 2-3 viewson XR Hip Right 2-3 views 2 [facility] HIP COMPARISON: No comparison exams available at [...] JUNI WOOD MD, MD Date: 08/16/2024 12:38 [facility] CT Brain wo contraston 08-15 CT Brain [...] MATILDE TURNER DO, MD Date: 08/15/2024 05:16 [facility] Comment on above: Order Comment: CONTR AST [...] DHIRAJ LAGOS DO, MD Date: 08/15/2024 05:49 [facility] XR Chest 1 view-Mobileon XR Chest 1 view-Mobile CHEST CPT 17866 - RADIOLOGIC EXAMINATION, CHEST; SINGLE VIEW COMPARISON: [...] CARLY GIBSON MD, MD Date: 08/15/2024 19:33 [facility] XR Chest 1 view-Mobile Chest. Single vie [...] DHIRAJ LAGOS DO, MD Date: 08/15/2024 05:50 [facility] CT Brain wo contraston 08-14 CT Brain [...] KEV SANTANA MD, MD Date: 08/14/2024 20:14 [facility] Comment on above: Order Comment: TRAUM A [...] KEV SANTANA MD, MD Date: 08/14/2024 21:01 [facility] Comment on above: Order Comment: TRAUM A Please call CT department to schedule [phone] CTA Head and Neck w/wo contr jenna 08-14-2024 CTA Head and Neck w/wo contrast CTA OF THE NECK (CAROTIDS) (CPT 77251) TECHNICAL: CT angiography of the neck/carotid vasculature [...] bilateral pulmonary opacities CTA OF THE HEAD/BRAIN ([place]DO OF [place]) (CPT 67471) TECHNICAL: CT angiography of the neck/carotid vasculature [...] appear normal. POSTERIOR CEREBRAL ARTERY CIRCULATION: Visualized [employer] ARCHITECT segments appear normal. VERTEBROBASILAR CIRCULATION stenosis or [...] KEV SANTANA MD, MD Date: 08/14/2024 20:25 [facility] Comment on above: Order Comment: CONTR AST PER RADIOLOGIST DISCRETION Please call CT department to schedule [phone] XR Chest 1 view-Mobileon XR Chest 1 [...] KEV SANTANA MD, MD Date: 08/14/2024 20:19 [facility] Basic metabolic 1998 panelon 07-17-2024 Anion gap [Moles/Vol] 21 mmol/L High 3 - 13 mmol/L [facility] Calcium [Mass/Vol] 8.5 mg/dL Low 8.8 - 10. 0 mg/dL [facility] Chloride [Moles/Vol] 96 mmol/L Low 98 - 10 7 mmol/L [facility] CO2 [Moles/Vol] 16 mmol/L Low 23 - 31 mmol/L [facility] [employer] Creatinine [Mass/Vol] 9.04 mg/dL High 0.57 - 1.11 mg/dL [facility] [employer] GFR/1.73 sq M.predicted (S/P/Bld) [Vol rate/Area] 4.2 mL/min Low - PINF [facility] Comment on above: Calculation based on the Chronic Kidney Disease Epidemiology Collaboration (CKD-EPI) equation refit without adjustment for race Glucose [Mass/Vol] 92 mg/dL 82 - 115 mg/dL [facility] Interpretation and review of laboratory results Abnormal [facility] [employer] Potassium [Moles/Vol] 5.6 mmol/L High 3.5 - 5.1 mmol/L [facility] Comment on above: Plasma potassium bhaskar ues may be up to 0.5 mmol/L lower than serum values. Sodium [Moles/Vol] 133 mmol/L Low 136 - 145 mmol/L [facility] [employer] Urea nitrogen [Mass/Vol] 84 mg/dL High 9 - 23 mg/dL [facility] [employer] CBC W Auto Differential pane l (Bld)on 07-17-2024 Basophils (Bld) [#/Vol] 0 10*3/uL 0.0 - 0.2 10*3/uL [facility] [employer] Basophils/100 WBC (Bld) 0.1 % 0.0 - 2.0 % [facility] [employer] Eosinophils (Bld) [#/Vol] 0 10*3/uL 0.0 - 0.5 10*3/uL [facility] [employer] Eosinophils/100 WBC (Bld) 0.1 % 0.0 - 6.0 % [facility] [employer] Erythrocyte distribution width (RBC) [Ratio] 16.3 % High 11.5 - 15.0 % [facility] [employer] Hematocrit (Bld) [Volume fraction] 34.9 % Low 35.0 - 47.0 % [facility] [employer] Hemoglobin (Bld) [Mass/Vol] 11.5 g/dL Low 11.7 - 16.0 g/dL [facility] [employer] Immature granulocytes (Bld) [#/Vol] 0.1 10*3/uL High NINF - 0.1 10*3/uL [facility] [employer] Immature granulocytes/100 WBC (Bld) 0.7 % 0.0 - 2.0 % [facility] Interpretation and review of laboratory results Abnormal [facility] Lymphocytes (Bld) [#/Vol] 0.9 10*3/uL Low 1.0 - 4.3 10*3/uL [facility] [employer] Lymphocytes/100 WBC (Bld) 12.2 % Low 15.0 - 45.0 % [facility] MCH (RBC) [Entitic mass] 31.8 pg 26.0 - 34.0 pg [facility] MCHC (RBC) [Mass/Vol] 33 % 30.5 - 36.0 % [facility] MCV (RBC) [Entitic vol] 96.4 fL 77.0 - 99.0 fL [facility] Monocytes (Bld) [#/Vol] 0.2 10*3/uL 0.0 - 0.9 10*3/uL [facility] Monocytes/100 WBC (Bld) 3.2 % Low 5.0 - 13.0 % [facility] Neutrophils (Bld) [#/Vol] 6.2 10*3/uL 1.8 - 7.5 10*3/uL [facility] Neutrophils/100 WBC (Bld) 83.7 % High 38.0 - 82.0 % [facility] [employer] Nucleated RBC/100 WBC (Bld) [Ratio] 0 % [facility] [employer] Platelet mean volume (Bld) [Entitic vol] 11.3 fL 9.0 - 12.7 fL [facility] [employer] Platelets (Bld) [#/Vol] 325 10*3/uL 140 - 440 10*3/uL [facility] RBC (Bld) [#/Vol] 3.62 10*6/uL Low 3.80 - 5.2 0 10*6/uL [facility] WBC (Bld) [#/Vol] 7.4 10*3/uL 3.6 - 10.7 10*3/uL [facility] Laboratory - Chemistry and C hemistry - challengeon 07-17-2024 Magnesium [Mass/Vol] 2.3 mg/dL 1.6 - 2 .6 mg/dL [facility] Magnesium [Mass/Vol]on 07-17 Interpretation and review of laboratory results Normal [facility] Higher values can be expected in females during menses. [facility] No Panel Informationon 07-17 2h Troponin HS (Serial 2nd Troponin) 82 ng/L High NINF - 14 ng/L [facility] Interpretation and review of laboratory results Abnormal [employer] Sinus rhythm Consider left ventricular hypertrophy Electronically Signed On 07-17-2024 20:17:37 EDT by Bryant Jameson CV Bryant Rooney MD - 07/17/2024 IMPRESSION: Sinus rhythm Consider left ventricular hypertrophy Electronically Signed On 07-17-2024 20:17:37 EDT by Bryant Jameson [facility] 2h Troponin HS (Serial 2nd Troponin) 33 ng/L High NINF - 14 ng/L [facility] Interpretation and review of laboratory results Abnormal [employer] [place] No Panel InformationOrdered By: Bryant Jameson on 07-17-2024 P [place] 99 degrees [employer] Phone: KS Interval 119 ms [employer] Phone: QRS [place] 42 degrees [employer] Phone: QRSD Interval 82 ms [employer] Phone: QT Interval 391 ms [employer] Phone: [phone] QTC Interval 452 ms [employer] Phone: T Wave [place] 67 degrees [employer] Phone: [employer] Phone: Vital signsOrdered By: Bryant Jameson on 07-17-2024 Heart rate 80 /min bpm [employer] Phone: XR Chest Single viewon 07-17 No acute cardiopulmonary disease. Report Dictated on Electronically Signed By: Veronica Monsivais MD Electronically Signed Date/Time: 07/17/2024 3:00 PM EDT [facility] Patient Name: APOORVA [facility]ONZALEZ [facility] 1950 [id number] Exam Date/Time: 07/17/2024 14:45 Procedure: XR CHEST [...] changes of the thoracic spine are noted. [facility] Veronica Monsivais MD - 07/17/2024 Patient Name: APOORVA GONZALEZ : 1950 [id number] Exam Date/Time: 07/17/2024 14:45 Procedure: XR CHEST 1 VIEW Ordering Provider: SANCHZE COURTNEY Reason For Exam: CHEST PAIN PORTABLE [...] Electronically Signed Date/Time: 07/17/2024 3:00 PM EDT [facility] Radiology Study observation (narrative) [facility] [employer] XR Chest Single viewOrdered By: Veronica Monsivais on 07-17-2024 [facility] CBC W Auto Differential pane l (Bld)on 06-29-2024 Basophils (Bld) [#/Vol] 0.1 10*3/uL 0.0 - 0.2 10*3/uL [facility] [employer] Basophils/100 WBC (Bld) 0.9 % 0.0 - 2.0 % [facility] Eosinophils (Bld) [#/Vol] 0.2 10*3/uL 0.0 - 0.5 10*3/uL [facility] [employer] Eosinophils/100 WBC (Bld) 1.6 % 0.0 - 6.0 % [facility] Erythrocyte distribution width (RBC) [Ratio] 16.1 % High 11.5 - 15.0 % [facility] Hematocrit (Bld) [Volume fraction] 24 % Low 35.0 - 47.0 % [facility] Hemoglobin (Bld) [Mass/Vol] 8 g/dL Low 11.7 - 16.0 g/dL [facility] [employer] Immature granulocytes (Bld) [#/Vol] 0 10*3/uL NINF - 0.1 10*3/uL [facility] Immature granulocytes/100 WBC (Bld) 0.4 % 0.0 - 2.0 % [facility] [employer] Interpretation and review of laboratory results Abnormal [facility] [employer] Lymphocytes (Bld) [#/Vol] 1.6 10*3/uL 1.0 - 4.3 10*3/uL [facility] Lymphocytes/100 WBC (Bld) 16 % 15.0 - 45.0 % [facility] [employer] MCH (RBC) [Entitic mass] 31.5 pg 26.0 - 34.0 pg [facility] [employer] MCHC (RBC) [Mass/Vol] 33.3 % 30.5 - 36.0 % [facility] [employer] MCV (RBC) [Entitic vol] 94.5 fL 77.0 - 99.0 fL [facility] [employer] Monocytes (Bld) [#/Vol] 1 10*3/uL High 0.0 - 0.9 10*3/uL [facility] Monocytes/100 WBC (Bld) 9.5 % 5.0 - 13.0 % [facility] [employer] Neutrophils (Bld) [#/Vol] 7.3 10*3/uL 1.8 - 7.5 10*3/uL [facility] Neutrophils/100 WBC (Bld) 71.6 % 38.0 - 82.0 % [facility] [employer] Nucleated RBC/100 WBC (Bld) [Ratio] 0 % [facility] [employer] Platelet mean volume (Bld) [Entitic vol] 10.4 fL 9.0 - 12.7 fL [facility] [employer] Platelets (Bld) [#/Vol] 370 10*3/uL 140 - 440 10*3/uL [facility] [employer] RBC (Bld) [#/Vol] 2.54 10*6/uL Low 3.80 - 5.2 0 10*6/uL [facility] WBC (Bld) [#/Vol] 10.2 10*3/uL 3.6 - 10.7 10*3/uL [facility] [employer] [facility] Health CT Head WO contraston 2024 No acute intracranial abnormalities or significant change from the prior study. Generalized brain parenchymal volume loss and moderate chronic small vessel ischemic changes bilaterally. Report Dictated on Electronically Signed By: Andrea Gonzales MD Electronically Signed Date/Time: 06/29/2024 7:49 AM EDT [facility] Patient Name: APOORVA GONZALEZ : 1950 [...] included paranasal sinuses and orbits are normal. [facility] Andrea Gonzales M D - 06/29/2024 Patient Name: APOORVA GONZALEZ : 1950 Exam [...] Electronically Signed Date/Time: 06/29/2024 7:49 AM EDT [facility] Radiology Study observation (narrative) [facility] CT Head WO contrastOrdered B y: Andrea Gonzales on 06-29-2024 [facility] [employer] Work Phone: Comprehensive metabolic 1998 panelon 06-29-2024 Albumin [Mass/Vol] 3.4 g/dL 3.4 - 4.8 g/dL [facility] [employer] ALP [Catalytic activity/Vol] 93 U/L 40 - 150 U/L [facility] [employer] ALT [Catalytic activity/Vol] 8 U/L NINF - 30 U/L [facility] [employer] Anion gap [Moles/Vol] 20 mmol/L High 3 - 13 mmol/L [facility] [employer] AST [Catalytic activity/Vol] 23 U/L NINF - 34 U/L [facility] [employer] Bilirubin [Mass/Vol] 0.6 mg/dL NINF - 1.2 mg/dL [facility] [employer] Calcium [Mass/Vol] 8.4 mg/dL Low 8.8 - 10. 0 mg/dL [facility] [employer] Chloride [Moles/Vol] 93 mmol/L Low 98 - 10 7 mmol/L [facility] [employer] CO2 [Moles/Vol] 24 mmol/L 23 - 31 mmol/L [facility] Creatinine [Mass/Vol] 11.11 mg/dL High 0.57 - 1.11 mg/dL [facility] [employer] GFR/1.73 sq M.predicted (S/P/Bld) [Vol rate/Area] 3.3 mL/min Low - PINF [facility] Comment on above: Calculation based on the Chronic Kidney Disease Epidemiology Collaboration (CKD-EPI) equation refit without adjustment for race Glucose [Mass/Vol] 89 mg/dL 82 - 115 mg/dL [facility] Potassium [Moles/Vol] 6 mmol/L High 3.5 - 5.1 mmol/L [facility] Comment on above: Plasma potassium bhaskar ues may be up to 0.5 mmol/L lower than serum values. Protein [Mass/Vol] 7.1 g/dL 6.4 - 8.3 g/dL [facility] [employer] Sodium [Moles/Vol] 137 mmol/L 136 - 145 mmol/L [facility] [employer] Urea nitrogen [Mass/Vol] 96 mg/dL High 9 - 23 mg/dL [facility] [employer] Free T4 [Mass/Vol]on 025 Free T4 Dialysis [Mass/Vol] 1.4 ng/dL 0.70 - 1.48 ng/dL [facility] Laboratory - Chemistry and C hemistry - challengeon 06-29-2024 TSH Qn 0.95 m[IU]/L [facility] Magnesium [Mass/Vol] 2.9 mg/dL High 1.6 - 2 .6 mg/dL [facility] Ammonia (P) [Moles/Vol] 22 umol/L 18 - 72 umol/L [facility] Magnesium [Mass/Vol]on 06-29 Higher values can be expected in females during menses. [facility] No Panel Informationon 06-29 Interpretation and review of laboratory results Normal [facility] Interpretation and review of laboratory results Abnormal [facility] Interpretation and review of laboratory results Normal [facility] P [place] 80 degrees [facility] KS Interval 124 ms [facility] QRS [place] 42 degrees [facility] QRSD Interval 108 ms [facility] QT Interval 422 ms [facility] QTC Interval 497 ms [facility] T Wave [place] 68 degrees [facility] Sinus rhythm Incomplete left bundle branch block Probable left ventricular hypertrophy Anterior Q waves, possibly due to LVH Electronically Signed On 06-29-2024 07:59:25 EDT by Veronica Abebe CV Veronica Sharma MD - 06/29/2024 IMPRESSION: Sinus rhythm Incomplete left bundle branch block Probable left ventricular hypertrophy Anterior Q waves, possibly due to LVH Electronically Signed On 06-29-2024 07:59:25 EDT by Veronica Abebe [facility] Vital signson 06-29-2024 Heart rate 83 /min bpm [facility] DBT Breast - bilateral scree ningon 06-09-2024 [...] MD Electronically Signed Date/Time: 06/09/2024 2:24 PM [facility] Patient Name: APOORVA GONZALEZ : 1950 [id number] Exam Date/Time: 06/09/2024 13:19 Procedure: BI MAMMOGRAM SCREENING TOMOSYNTHESIS BILATERAL Ordering Provider: SPAIN ABIGAIL Reason For Exam: This exam was performed at [facility] at [address] [place] [facility] [address] PATIENT CANCER HISTORY: No Personal History of Cancer FAMILY CANCER HISTORY: Cousin Breast Cancer age 32 Brother Prostate Cancer age 69 Maternal Aunt Stomach Cancer age 70 Image views: 2D Bilateral CC and MLO views were acquired. 3D Bilateral CC and MLO views were acquired. Images were reviewed with CAD. Markings on images: BB's = Nipples; skin lesions Open [place] = Palpable Line = Scar COMPARISON: 01/12/2023 and 11/28/2020 TISSUE DENSITY: BIRADS C - The breasts are heterogeneously dense, which may obscure small masses. FINDINGS: No suspicious masses, architectural distortions or suspiciously clustered microcalcifications are identified. There is no evidence of skin thickening or nipple retraction. There are no significant changes when compared with prior studies. [facility] Nalini Márquez MD - 06/09/2024 Patient Name: APOORVA GONZALEZ : 1950 Exam Date/Time: 06/09/2024 13:19 Procedure: BI MAMMOGRAM SCREENING TOMOSYNTHESIS BILATERAL Ordering Provider: SPAIN ABIGAIL Reason For Exam: This exam was performed at [facility] at [address] [place] [facility] [address] PATIENT CANCER HISTORY: No Personal History of Cancer FAMILY CANCER HISTORY: Cousin Breast Cancer age 32 Brother Prostate Cancer age 69 Maternal Aunt Stomach Cancer age 70 Image views: 2D Bilateral CC and MLO views were acquired. 3D Bilateral CC and MLO views were acquired. Images were reviewed with CAD. Markings on images: BB's = Nipples; skin lesions Open [place] = Palpable Line = Scar COMPARISON: 01/12/2023 [...] Electronically Signed Date/Time: 06/09/2024 2:24 PM EST [facility] Radiology Study observation (narrative) [facility] DBT Breast - bilateral scree ningOrdered By: Nalini Márquez on 06-09-2024 [facility] Work Phone: Basic metabolic 1998 panelOr dered By: Yonatan Cornell on 03-03-2024 Anion gap [Moles/Vol] 12 mmol/L 3 - 13 mmol/L [facility] Calcium [Mass/Vol] 8.3 mg/dL Low 8.4 - 10. 4 mg/dL [facility] [employer] Chloride [Moles/Vol] 98 mmol/L 98 - 10 7 mmol/L [facility] [employer] CO2 [Moles/Vol] 28 mmol/L 22 - 30 mmol/L [facility] [employer] Creatinine [Mass/Vol] 8.03 mg/dL High 0.52 - 1.04 mg/dL [facility] GFR/1.73 sq M.predicted (S/P/Bld) [Vol rate/Area] 4.9 mL/min Low - PINF [facility] Comment on above: Calculation based on the Chronic Kidney Disease Epidemiology Collaboration (CKD-EPI) equation refit without adjustment for race Glucose [Mass/Vol] 91 mg/dL 70 - 100 mg/dL [facility] Interpretation and review of laboratory results Abnormal [facility] Potassium [Moles/Vol] 5 mmol/L 3.5 - 5.1 mmol/L [facility] Sodium [Moles/Vol] 138 mmol/L 135 - 145 mmol/L [facility] Urea nitrogen [Mass/Vol] 42 mg/dL High 7 - 17 mg/dL [facility] CBC W Auto Differential pane l (Bld)on 03-03-2024 Basophils (Bld) [#/Vol] 0.1 10*3/uL 0.0 - 0.2 10*3/uL [facility] Basophils/100 WBC (Bld) 1.1 % 0.0 - 2.0 % [facility] Eosinophils (Bld) [#/Vol] 0.3 10*3/uL 0.0 - 0.5 10*3/uL [facility] Eosinophils/100 WBC (Bld) 4 % 0.0 - 6.0 % [facility] Erythrocyte distribution width (RBC) [Ratio] 16.8 % High 11.5 - 15.0 % [facility] Hematocrit (Bld) [Volume fraction] 32.8 % Low 35.0 - 47.0 % [facility] Hemoglobin (Bld) [Mass/Vol] 10.2 g/dL Low 11.7 - 16.0 g/dL [facility] Immature granulocytes (Bld) [#/Vol] 0 10*3/uL NINF - 0.1 10*3/uL [facility] Immature granulocytes/100 WBC (Bld) 0.4 % 0.0 - 2.0 % [facility] Interpretation and review of laboratory results Abnormal [facility] Lymphocytes (Bld) [#/Vol] 1.9 10*3/uL 1.0 - 4.3 10*3/uL [facility] Lymphocytes/100 WBC (Bld) 24.8 % 15.0 - 45.0 % [facility] MCH (RBC) [Entitic mass] 30.9 pg 26.0 - 34.0 pg [facility] MCHC (RBC) [Mass/Vol] 31.1 % 30.5 - 36.0 % [facility] MCV (RBC) [Entitic vol] 99.4 fL High 77.0 - 99.0 fL [facility] Monocytes (Bld) [#/Vol] 0.6 10*3/uL 0.0 - 0.9 10*3/uL [facility] Monocytes/100 WBC (Bld) 7.8 % 5.0 - 13.0 % [facility] Neutrophils (Bld) [#/Vol] 4.7 10*3/uL 1.8 - 7.5 10*3/uL [facility] Neutrophils/100 WBC (Bld) 61.9 % 38.0 - 82.0 % [facility] Nucleated RBC/100 WBC (Bld) [Ratio] 0 % [facility] Platelet mean volume (Bld) [Entitic vol] 10.4 fL 9.0 - 12.7 fL [facility] Platelets (Bld) [#/Vol] 409 10*3/uL 140 - 440 10*3/uL [facility] RBC (Bld) [#/Vol] 3.3 10*6/uL Low 3.80 - 5.2 0 10*6/uL [facility] WBC (Bld) [#/Vol] 7.5 10*3/uL 3.6 - 10.7 10*3/uL [facility] Laboratory - Chemistry and C hemistry - challengeon 03-03-2024 Glucose [Mass/Vol] 74 mg/dL 70 - 100 mg/dL [facility] Glucose [Mass/Vol] 90 mg/dL 70 - 100 mg/dL [facility] No Panel Informationon 03-03 Interpretation and review of laboratory results Normal [facility] Performed by: [facility], [address] [place], [place] [id number] CLIA ID: [id number] [facility] Interpretation and review of laboratory results Normal [facility] Performed by: [facility], [address] [place] [address] CLIA ID: [id number] [facility] Basic metabolic 1998 panelOr dered By: Yogi Stanley on 03-02-2024 Anion gap [Moles/Vol] 20 mmol/L High 3 - 13 mmol/L [facility] Calcium [Mass/Vol] 8.8 mg/dL 8.4 - 10. 4 mg/dL [facility] Chloride [Moles/Vol] 97 mmol/L Low 98 - 10 7 mmol/L [facility] CO2 [Moles/Vol] 20 mmol/L Low 22 - 30 mmol/L [facility] Creatinine [Mass/Vol] 11.21 mg/dL High 0.52 - 1.04 mg/dL [facility] GFR/1.73 sq M.predicted (S/P/Bld) [Vol rate/Area] 3.3 mL/min Low - PINF [facility] Comment on above: Calculation based on the Chronic Kidney Disease Epidemiology Collaboration (CKD-EPI) equation refit without adjustment for race Glucose [Mass/Vol] 110 mg/dL High 70 - 100 mg/dL [facility] Interpretation and review of laboratory results Abnormal [facility] Potassium [Moles/Vol] 6.4 mmol/L Critically high 3.5 - 5.1 mmol/L [facility] Sodium [Moles/Vol] 137 mmol/L 135 - 145 mmol/L [facility] Urea nitrogen [Mass/Vol] 58 mg/dL High 7 - 17 mg/dL [facility] CBC W Auto Differential pane l (Bld)on 03-02-2024 Basophils (Bld) [#/Vol] 0.1 10*3/uL 0.0 - 0.2 10*3/uL [facility] Basophils/100 WBC (Bld) 1.1 % 0.0 - 2.0 % [facility] Eosinophils (Bld) [#/Vol] 0.2 10*3/uL 0.0 - 0.5 10*3/uL [facility] Eosinophils/100 WBC (Bld) 2.1 % 0.0 - 6.0 % [facility] Erythrocyte distribution width (RBC) [Ratio] 16.6 % High 11.5 - 15.0 % [facility] Hematocrit (Bld) [Volume fraction] 32.3 % Low 35.0 - 47.0 % [facility] [employer] Hemoglobin (Bld) [Mass/Vol] 10.2 g/dL Low 11.7 - 16.0 g/dL [facility] [employer] Immature granulocytes (Bld) [#/Vol] 0 10*3/uL NINF - 0.1 10*3/uL [facility] Immature granulocytes/100 WBC (Bld) 0.4 % 0.0 - 2.0 % [facility] [employer] Lymphocytes (Bld) [#/Vol] 1.2 10*3/uL 1.0 - 4.3 10*3/uL [facility] Lymphocytes/100 WBC (Bld) 14.4 % Low 15.0 - 45.0 % [facility] [employer] MCH (RBC) [Entitic mass] 30.6 pg 26.0 - 34.0 pg [facility] [employer] MCHC (RBC) [Mass/Vol] 31.6 % 30.5 - 36.0 % [facility] [employer] MCV (RBC) [Entitic vol] 97 fL 77.0 - 99.0 fL [facility] [employer] Monocytes (Bld) [#/Vol] 0.5 10*3/uL 0.0 - 0.9 10*3/uL [facility] [employer] Monocytes/100 WBC (Bld) 5.4 % 5.0 - 13.0 % [facility] [employer] Neutrophils (Bld) [#/Vol] 6.5 10*3/uL 1.8 - 7.5 10*3/uL [facility] Neutrophils/100 WBC (Bld) 76.6 % 38.0 - 82.0 % [facility] [employer] Nucleated RBC/100 WBC (Bld) [Ratio] 0 % [facility] [employer] Platelet mean volume (Bld) [Entitic vol] 10.3 fL 9.0 - 12.7 fL [facility] [employer] Platelets (Bld) [#/Vol] 406 10*3/uL 140 - 440 10*3/uL [facility] [employer] RBC (Bld) [#/Vol] 3.33 10*6/uL Low 3.80 - 5.2 0 10*6/uL [facility] WBC (Bld) [#/Vol] 8.5 10*3/uL 3.6 - 10.7 10*3/uL [facility] [employer] Laboratory - Chemistry and C hemistry - challengeon 03-02-2024 Glucose [Mass/Vol] 124 mg/dL High 70 - 100 mg/dL [facility] Glucose [Mass/Vol] 126 mg/dL High 70 - 100 mg/dL [facility] Glucose [Mass/Vol] 77 mg/dL 70 - 100 mg/dL [facility] Troponin I.cardiac [Mass/Vol] 0.029 ng/mL NINF - 0.034 ng/mL [facility] Troponin I.cardiac [Mass/Vol] 0.029 ng/mL NINF - 0.034 ng/mL [facility] Glucose [Mass/Vol] 88 mg/dL 70 - 100 mg/dL [facility] Glucose [Mass/Vol] 57 mg/dL Low 70 - 100 mg/dL [facility] Glucose [Mass/Vol] 239 mg/dL High 70 - 100 mg/dL [facility] Glucose [Mass/Vol] 88 mg/dL 70 - 100 mg/dL [facility] Troponin I.cardiac [Mass/Vol] 0.028 ng/mL NINF - 0.034 ng/mL [facility] Laboratory - Chemistry and C hemistry - challengeOrdered By: Christiano Weinberg on 03-02-2024 Base excess Calc (BldV) [Moles/Vol] -0.1000 mmol/L -3.0 - 3.0 mmol/L [facility] CO2 (BldV) [Partial pressure] 36 mm[Hg] Low [facility] CO2 [Moles/Vol] 24.8 mmol/L 24.0 - 28.0 mmol/L [facility] HCO3 (Bld) [Moles/Vol] 23.7 mmol/L 23.0 - 27.0 mmol/L [facility] Oxygen (BldV) [Partial pressure] 45.7 mm[Hg] mm Hg [facility] pH (BldV) 7.437 [pH] High 7.330 - 7.430 [facility] Laboratory - Hematology and Cell countsOrdered By: Christiano Weinberg on 03-02-2024 Hemoglobin (Bld) [Mass/Vol] 12.1 g/dL Screen only [facility] Natriuretic peptide B [Mass/ Vol]on 03-02-2024 Interpretation and review of laboratory results Abnormal [facility] Natriuretic peptide B (Bld) [Mass/Vol] 90814 pg/mL High NINF - 125 pg/mL [facility] No Panel Informationon 03-02 Interpretation and review of laboratory results Abnormal [facility] [facility], [address] [place] [address], [place] [address] CLIA ID: [id number] [facility] Interpretation and review of laboratory results Abnormal [facility] Performed by: [facility] [place] [facility], [address] [place] [address], [place] [address] CLIA ID: [id number] [facility] Interpretation and review of laboratory results Normal [facility] Performed by: [facility] [place] [facility], [address] [place] [address], [place] [address] CLIA ID: [id number] [facility] Interpretation and review of laboratory results Normal [facility] Performed by: [facility] [place] [facility], [address] [place] [address], [place] [address] CLIA ID: [id number] [facility] Interpretation and review of laboratory results Abnormal [facility] Performed by: [facility] [place] [facility], [address] [place] [address], [place] [address] CLIA ID: [id number] [facility] Interpretation and review of laboratory results Abnormal [facility] Performed by: [facility] [place] [facility], [address] [place] [address], [place] [address] CLIA ID: [id number] [facility] P [place] 65 degrees [facility] [place] Interval 129 ms [facility] QRS [place] 3 degrees [facility] QRSD Interval 91 ms [facility] QT Interval 384 ms [facility] QTC Interval 464 ms [facility] T Wave [place] 58 degrees [facility] Sinus rhythm Minimal ST elevation, anterior leads Normal axis Electronically Signed On 03-02-2024 07:17:20 EST by Marcus Sutherland DO - 03/02/2024 IMPRESSION: Sinus rhythm Minimal ST elevation, anterior leads Normal axis Electronically Signed On 03-02-2024 07:17:20 EST by Marcus Ragalnd [facility] P [place] 58 degrees [facility] [place] Interval 123 ms [facility] QRS [place] 0 degrees [facility] QRSD Interval 96 ms [facility] QT Interval 404 ms [facility] QTC Interval 483 ms [facility] T Wave [place] 51 degrees [facility] Sinus rhythm Probable left atrial enlargement Normal axis Electronically Signed On 03-02-2024 07:16:24 EST by Marcus Sutherland DO - 03/02/2024 IMPRESSION: Sinus rhythm Probable left atrial enlargement Normal axis Electronically Signed On 03-02-2024 07:16:24 EST by Marcus Ragland [facility] Interpretation and review of laboratory results Normal [facility] Performed by: [facility], [address] [place], [place] [id number] CLIA ID: [id number] [facility] Interpretation and review of laboratory results Abnormal [facility] No Panel InformationOrdered By: Christiano Weinberg on 03-02-2024 Source Of Oxygen 2L [facility] Assessment of oxygenation is best done with an arterial blood gas determination. Reference ranges for pO2, bicarbonate, and base excess are for mixed venous blood. Specimens drawn from a peripheral vein will often have higher values. [facility] Troponin I.cardiac [Mass/Vol ]on 03-02-2024 Interpretation and review of laboratory results Normal [facility] Patients with high levels of Biotin oral intake (ie >5 mg/day) may have falsely decreased Troponin levels. [facility] Interpretation and review of laboratory results Normal [facility] Patients with high levels of Biotin oral intake (ie >5 mg/day) may have falsely decreased Troponin levels. [facility] Interpretation and review of laboratory results Normal [facility] Patients with high levels of Biotin oral intake (ie >5 mg/day) may have falsely decreased Troponin levels. [facility] Vital signson 03-02-2024 Heart rate 88 /min bpm [facility] Heart rate 86 /min bpm [facility] Vital signsOrdered By: Christiano Weinberg on 03-02-2024 Oxygen saturation in Venous blood 73.5 % [facility] XR Chest Single viewon 03-02 1. Worsening bibasil ar infiltrates and effusions. 2. Prominence of the central pulmonary vasculature consistent with moderate to severe congestive heart failure/fluid overload. Report Dictated on Electronically Signed By: Honorio Henson MD Electronically Signed Date/Time: 03/02/2024 4:43 AM EST [facility] Patient Name: APOORVA GONZALEZ [...] of the interstitium and central pulmonary vasculature. [facility] Honorio Henson MD - 03/02/2024 Patient Name: APOORVA GONZALEZ : 1950 Exam [...] Electronically Signed Date/Time: 03/02/2024 4:43 AM EST [facility] Radiology Study observation (narrative) [facility] XR Chest Single viewOrdered By: Honorio Henson on 03-02-2024 [facility] Work Phone: CBC W Auto Differential pane l (Bld)Ordered By: Andre Ervin on 02-20-2024 Basophils (Bld) [#/Vol] 0.1 10*3/uL 0.0 - 0.2 10*3/uL [facility] Basophils/100 WBC (Bld) 1.1 % 0.0 - 2.0 % [facility] Eosinophils (Bld) [#/Vol] 0.5 10*3/uL 0.0 - 0.5 10*3/uL [facility] Eosinophils/100 WBC (Bld) 4.6 % 0.0 - 6.0 % [facility] Erythrocyte distribution width (RBC) [Ratio] 17.5 % High 11.5 - 15.0 % [facility] Hematocrit (Bld) [Volume fraction] 27.4 % Low 35.0 - 47.0 % [facility] Hemoglobin (Bld) [Mass/Vol] 8.4 g/dL Low 11.7 - 16.0 g/dL [facility] Immature granulocytes (Bld) [#/Vol] 0.1 10*3/uL High NINF - 0.1 10*3/uL [facility] Immature granulocytes/100 WBC (Bld) 0.4 % 0.0 - 2.0 % [facility] Interpretation and review of laboratory results Abnormal [facility] Lymphocytes (Bld) [#/Vol] 2.5 10*3/uL 1.0 - 4.3 10*3/uL [facility] Lymphocytes/100 WBC (Bld) 22.7 % 15.0 - 45.0 % [facility] MCH (RBC) [Entitic mass] 30.8 pg 26.0 - 34.0 pg [facility] MCHC (RBC) [Mass/Vol] 30.7 % 30.5 - 36.0 % [facility] MCV (RBC) [Entitic vol] 100.4 fL High 77.0 - 99.0 fL [facility] Monocytes (Bld) [#/Vol] 0.9 10*3/uL 0.0 - 0.9 10*3/uL [facility] Monocytes/100 WBC (Bld) 8 % 5.0 - 13.0 % [facility] Neutrophils (Bld) [#/Vol] 7.1 10*3/uL 1.8 - 7.5 10*3/uL [facility] Neutrophils/100 WBC (Bld) 63.2 % 38.0 - 82.0 % [facility] Nucleated RBC/100 WBC (Bld) [Ratio] 0 % [facility] Platelet mean volume (Bld) [Entitic vol] 10.1 fL 9.0 - 12.7 fL [facility] Platelets (Bld) [#/Vol] 405 10*3/uL 140 - 440 10*3/uL [facility] RBC (Bld) [#/Vol] 2.73 10*6/uL Low 3.80 - 5.2 0 10*6/uL [facility] WBC (Bld) [#/Vol] 11.2 10*3/uL High 3.6 - 10.7 10*3/uL [facility] Comprehensive metabolic 1998 panelOrdered By: Gracie Wooten on 02-20-2024 Albumin [Mass/Vol] 3.4 g/dL Low 3.5 - 5.0 g/dL [facility] ALP [Catalytic activity/Vol] 136 U/L High 38 - 126 U/L [facility] ALT [Catalytic activity/Vol] 35 U/L High 0 - 34 U/L [facility] Anion gap [Moles/Vol] 11 mmol/L 3 - 13 mmol/L [facility] AST [Catalytic activity/Vol] 41 U/L 15 - 46 U/L [facility] Bilirubin [Mass/Vol] 0.7 mg/dL 0.2 - 1 .3 mg/dL [facility] Calcium [Mass/Vol] 8.2 mg/dL Low 8.4 - 10. 4 mg/dL [facility] Chloride [Moles/Vol] 97 mmol/L Low 98 - 10 7 mmol/L [facility] CO2 [Moles/Vol] 27 mmol/L 22 - 30 mmol/L [facility] Creatinine [Mass/Vol] 4.37 mg/dL High 0.52 - 1.04 mg/dL [facility] GFR/1.73 sq M.predicted (S/P/Bld) [Vol rate/Area] 10.2 mL/min Low - PINF [facility] Comment on above: Calculation based on the Chronic Kidney Disease Epidemiology Collaboration (CKD-EPI) equation refit without adjustment for race Glucose [Mass/Vol] 91 mg/dL 70 - 100 mg/dL [facility] Interpretation and review of laboratory results Abnormal [facility] Potassium [Moles/Vol] 3.8 mmol/L 3.5 - 5.1 mmol/L [facility] Protein [Mass/Vol] 6.2 g/dL Low 6.3 - 8.2 g/dL [facility] Sodium [Moles/Vol] 135 mmol/L 135 - 145 mmol/L [facility] Urea nitrogen [Mass/Vol] 29 mg/dL High 7 - 17 mg/dL [facility] Laboratory - Chemistry and C hemistry - challengeon 02-20-2024 Procalcitonin [Mass/Vol] 0.56 ng/mL High 0.00 - 0.09 ng/mL [facility] Procalcitonin [Mass/Vol]on 04-21-2023 Interpretation and review of laboratory results Abnormal [facility] PCT <0.50 = Low risk of severe sepsis and/or septic shock. PCT >2.00 = High risk of severe sepsis and/or septic shock. [facility] CBC W Auto Differential pane l (Bld)Ordered By: Beatriz Morales on 02-19-2024 Basophils (Bld) [#/Vol] 0.2 10*3/uL 0.0 - 0.2 10*3/uL [facility] Basophils/100 WBC (Bld) 1.3 % 0.0 - 2.0 % [facility] Eosinophils (Bld) [#/Vol] 0.6 10*3/uL High 0.0 - 0.5 10*3/uL [facility] Eosinophils/100 WBC (Bld) 4.9 % 0.0 - 6.0 % [facility] Erythrocyte distribution width (RBC) [Ratio] 18 % High 11.5 - 15.0 % [facility] Hematocrit (Bld) [Volume fraction] 30.6 % Low 35.0 - 47.0 % [facility] Hemoglobin (Bld) [Mass/Vol] 9.2 g/dL Low 11.7 - 16.0 g/dL [facility] Immature granulocytes (Bld) [#/Vol] 0.1 10*3/uL High NINF - 0.1 10*3/uL [facility] Immature granulocytes/100 WBC (Bld) 0.4 % 0.0 - 2.0 % [facility] Interpretation and review of laboratory results Abnormal [facility] Lymphocytes (Bld) [#/Vol] 2 10*3/uL 1.0 - 4.3 10*3/uL [facility] Lymphocytes/100 WBC (Bld) 17.1 % 15.0 - 45.0 % [facility] MCH (RBC) [Entitic mass] 30.7 pg 26.0 - 34.0 pg [facility] MCHC (RBC) [Mass/Vol] 30.1 % Low 30.5 - 36.0 % [facility] MCV (RBC) [Entitic vol] 102 fL High 77.0 - 99.0 fL [facility] Monocytes (Bld) [#/Vol] 0.7 10*3/uL 0.0 - 0.9 10*3/uL [facility] Monocytes/100 WBC (Bld) 6.3 % 5.0 - 13.0 % [facility] Neutrophils (Bld) [#/Vol] 8 10*3/uL High 1.8 - 7.5 10*3/uL [facility] Neutrophils/100 WBC (Bld) 70 % 38.0 - 82.0 % [facility] Nucleated RBC/100 WBC (Bld) [Ratio] 0.2 % [facility] Platelet mean volume (Bld) [Entitic vol] 10.4 fL 9.0 - 12.7 fL [facility] Platelets (Bld) [#/Vol] 472 10*3/uL High 140 - 440 10*3/uL [facility] RBC (Bld) [#/Vol] 3 10*6/uL Low 3.80 - 5.2 0 10*6/uL [facility] WBC (Bld) [#/Vol] 11.5 10*3/uL High 3.6 - 10.7 10*3/uL [facility] Comprehensive metabolic 1998 panelOrdered By: Cathy Salinas on 02-19-2024 Albumin [Mass/Vol] 3.7 g/dL 3.5 - 5.0 g/dL [facility] ALP [Catalytic activity/Vol] 122 U/L 38 - 126 U/L [facility] ALT [Catalytic activity/Vol] 42 U/L High 0 - 34 U/L [facility] Anion gap [Moles/Vol] 11 mmol/L 3 - 13 mmol/L [facility] AST [Catalytic activity/Vol] 76 U/L High 15 - 46 U/L [facility] Bilirubin [Mass/Vol] 1.1 mg/dL 0.2 - 1 .3 mg/dL [facility] Calcium [Mass/Vol] 8.5 mg/dL 8.4 - 10. 4 mg/dL [facility] Chloride [Moles/Vol] 95 mmol/L Low 98 - 10 7 mmol/L [facility] CO2 [Moles/Vol] 28 mmol/L 22 - 30 mmol/L [facility] Creatinine [Mass/Vol] 3.12 mg/dL High 0.52 - 1.04 mg/dL [facility] GFR/1.73 sq M.predicted (S/P/Bld) [Vol rate/Area] 15.2 mL/min Low - PINF [facility] Comment on above: Calculation based on the Chronic Kidney Disease Epidemiology Collaboration (CKD-EPI) equation refit without adjustment for race Glucose [Mass/Vol] 104 mg/dL High 70 - 100 mg/dL [facility] Interpretation and review of laboratory results Abnormal [facility] Potassium [Moles/Vol] 4.1 mmol/L 3.5 - 5.1 mmol/L [facility] Protein [Mass/Vol] 6.9 g/dL 6.3 - 8.2 g/dL [facility] Sodium [Moles/Vol] 134 mmol/L Low 135 - 145 mmol/L [facility] Urea nitrogen [Mass/Vol] 18 mg/dL High 7 - 17 mg/dL [facility] AST, Potassium, Alkaline Phosphatase-Slightly Hemolyzed. Interpret with caution. [facility] Comprehensive metabolic 1998 panelon 02-19-2024 Albumin [Mass/Vol] 4 g/dL 3.5 - 5.0 g/dL [facility] ALP [Catalytic activity/Vol] 131 U/L High 38 - 126 U/L [facility] ALT [Catalytic activity/Vol] 50 U/L High 0 - 34 U/L [facility] Anion gap [Moles/Vol] 18 mmol/L High 3 - 13 mmol/L [facility] AST [Catalytic activity/Vol] 105 U/L High 15 - 46 U/L [facility] Bilirubin [Mass/Vol] 1.1 mg/dL 0.2 - 1 .3 mg/dL [facility] Calcium [Mass/Vol] 8.2 mg/dL Low 8.4 - 10. 4 mg/dL [facility] Chloride [Moles/Vol] 95 mmol/L Low 98 - 10 7 mmol/L [facility] CO2 [Moles/Vol] 21 mmol/L Low 22 - 30 mmol/L [facility] Creatinine [Mass/Vol] 6.67 mg/dL High 0.52 - 1.04 mg/dL [facility] GFR/1.73 sq M.predicted (S/P/Bld) [Vol rate/Area] 6.1 mL/min Low - PINF [facility] Comment on above: Calculation based on the Chronic Kidney Disease Epidemiology Collaboration (CKD-EPI) equation refit without adjustment for race Glucose [Mass/Vol] 193 mg/dL High 70 - 100 mg/dL [facility] Interpretation and review of laboratory results Abnormal [facility] Potassium [Moles/Vol] 5.2 mmol/L High 3.5 - 5.1 mmol/L [facility] Protein [Mass/Vol] 7.3 g/dL 6.3 - 8.2 g/dL [facility] Sodium [Moles/Vol] 134 mmol/L Low 135 - 145 mmol/L [facility] Urea nitrogen [Mass/Vol] 44 mg/dL High 7 - 17 mg/dL [facility] Slightly Hemolyzed. Interpret Potassium, Total Protein, Albumin, Alkaline Phosphatase, and AST with caution. [facility] - Chemistry and C hemistry - challengeon 02-19-2024 Troponin I.cardiac [Mass/Vol] 0.033 ng/[facility]/mL [facility] Troponin I.cardiac [Mass/Vol] 0.042 ng/mL High [facility] - [facility] ng/mL [facility] Procalcitonin [Mass/Vol] 0.48 ng/mL High 0.00 - 0.09 ng/mL [facility] Lactate [Moles/Vol] 1.3 mmol/L 0.7 - 2. 0 mmol/L [facility] Troponin I.cardiac [Mass/Vol] 0.034 ng/mL High NINF - 0.034 ng/mL [facility] Base excess Calc (BldV) [Moles/Vol] 4.4 mmol/L High -3.0 - 3.0 mmol/L [facility] CO2 (BldV) [Partial pressure] 44.1 mm[Hg] [facility] CO2 [Moles/Vol] 30.4 mmol/L High 24.0 - 28.0 mmol/L [facility] HCO3 (Bld) [Moles/Vol] 29.1 mmol/L High 23.0 - 27.0 mmol/L [facility] Oxygen (BldV) [Partial pressure] 41.7 mm[Hg] mm Hg [facility] pH (BldV) 7.437 [pH] High 7.330 - 7.430 [facility] Troponin I.cardiac [Mass/Vol] 0.027 ng/mL NINF - 0.034 ng/mL [facility] Lactate [Moles/Vol] 3.3 mmol/L High 0.7 - 2. 0 mmol/L [facility] Laboratory - Chemistry and C hemistry - challengeOrdered By: Christiano Weinberg on 02-19-2024 Base excess Calc (BldV) [Moles/Vol] 3.3 mmol/L High -3.0 - 3.0 mmol/L [facility] CO2 (BldV) [Partial pressure] 62.2 mm[Hg] High [facility] CO2 [Moles/Vol] 32.3 mmol/L High 24.0 - 28.0 mmol/L [facility] HCO3 (Bld) [Moles/Vol] 30.4 mmol/L High 23.0 - 27.0 mmol/L [facility] Oxygen (BldV) [Partial pressure] 19.6 mm[Hg] mm Hg [facility] pH (BldV) 7.307 [pH] Low 7.330 - 7.430 [facility] Laboratory - Hematology and Cell countson 02-19-2024 Hemoglobin (Bld) [Mass/Vol] 8.8 g/dL Screen only [facility] Laboratory - Hematology and Cell countsOrdered By: Christiano Weinberg on 02-19-2024 Hemoglobin (Bld) [Mass/Vol] 8.7 g/dL Screen only [facility] Natriuretic peptide B [Mass/ Vol]Ordered By: Handy Jarvis on 02-19-2024 Interpretation and review of laboratory results Abnormal [facility] Natriuretic peptide B (Bld) [Mass/Vol] 66374 pg/mL High NINF - 125 pg/mL [facility] No Panel InformationOrdered By: Amol Perdue on 02-19-2024 Interpretation and review of laboratory results Normal [facility] Legionella pneumophila Ag Not detected Not Detected [facility] Streptococcus pneumoniae Ag Not detected Not Detected [facility] Methodology: Lateral flow enzyme immunoassay This assay is approved for detection of antigens to Streptococcus pneumoniae and Legionella pneumophila serogroup 1; however, other L. pneumophila serogroups may also be detected. [facility] No Panel Informationon 02-18 Interpretation and review of laboratory results Normal [facility] Interpretation and review of laboratory results Abnormal [facility] Source Of Oxygen [facility] Comment on above: 6L Assessment of oxygenation is best done with an arterial blood gas determination. Reference ranges for pO2, bicarbonate, and base excess are for mixed venous blood. Specimens drawn from a peripheral vein will often have higher values. [facility] Interpretation and review of laboratory results Abnormal [facility] P [place] 67 degrees [facility] [place] Interval 133 ms [facility] QRS [place] 3 degrees [facility] QRSD Interval 82 ms [facility] QT Interval 397 ms [facility] QTC Interval 465 ms [facility] T Wave [place] 48 degrees [facility] Sinus rhythm Probable left ventricular hypertrophy Anterior Q waves Electronically Signed On 02-19-2024 04:31:07 EST by Brown Barreto DO - 02/19/2024 IMPRESSION: Sinus rhythm Probable left ventricular hypertrophy Anterior Q waves Electronically Signed On 02-19-2024 04:31:07 EST by Brown Kaur [facility] No Panel InformationOrdered By: Christiano Weinberg on 02-19-2024 Interpretation and review of laboratory results Abnormal [facility] Source Of Oxygen [facility] Comment on above: 100% Assessment of oxygenation is best done with an arterial blood gas determination. Reference ranges for pO2, bicarbonate, and base excess are for mixed venous blood. Specimens drawn from a peripheral vein will often have higher values. [facility] Procalcitonin [Mass/Vol]on 04-20-2023 Interpretation and review of laboratory results Abnormal [facility] PCT <0.50 = Low risk of severe sepsis and/or septic shock. PCT >2.00 = High risk of severe sepsis and/or septic shock. [facility] Respiratory pathogens DNA an d RNA panel CHIQUIS+non-probe (Nph)on 02-19-2024 Adenovirus Not detected Not Detected [facility] B. pertussis DNA CHIQUIS+probe Ql (Unsp spec) Not detected Not Detected [facility] Bordetella parapertussis Not detected Not Detected [facility] Chlamydia pneumoniae Not detected Not Detected [facility] Coronavirus 229E Not detected Not Detected [facility] Coronavirus HKU1 Not detected Not Detected [facility] Coronavirus NL63 Not detected Not Detected [facility] Coronavirus OC43 Not detected Not Detected [facility] FLUAV RNA CHIQUIS+non-probe Ql (Nph) Not detected Not Detected [facility] FLUBV RNA CHIQUIS+non-probe Ql (Nph) Not detected Not Detected [facility] Human Metapneumovirus Not detected Not Detected [facility] Human Rhinovirus/Enterovirus Not detected Not Detected [facility] Interpretation and review of laboratory results Normal [facility] Mycoplasma pneumoniae Not detected Not Detected [facility] Parainfluenza 1 Not detected Not Detected [facility] Parainfluenza 2 Not detected Not Detected [facility] Parainfluenza 3 Not detected Not Detected [facility] Parainfluenza 4 Not detected Not Detected [facility] Respiratory Syncytial Virus Not detected Not Detected [facility] SARS-CoV-2 (COVID-19) RNA CHIQUIS+non-probe Ql (Nph) Not detected Not Detected [facility] Methodology: Multipl ex PCR [facility] Troponin I.cardiac [Mass/Vol ]on 02-19-2024 Interpretation and review of laboratory results Normal [facility] Patients with high levels of Biotin oral intake (ie >5 mg/day) may have falsely decreased Troponin levels. [facility] Interpretation and review of laboratory results Abnormal [facility] Patients with high levels of Biotin oral intake (ie >5 mg/day) may have falsely decreased Troponin levels. [facility] Interpretation and review of laboratory results Abnormal [facility] Patients with high levels of Biotin oral intake (ie >5 mg/day) may have falsely decreased Troponin levels. [facility] Interpretation and review of laboratory results Normal [facility] Moderately Hemolyzed . Interpret Troponin with caution. Patients with high levels of Biotin oral intake (ie >5 mg/day) may have falsely decreased Troponin levels. [facility] Vital signson 02-19-2024 Oxygen saturation in Venous blood 71.7 % [facility] Heart rate 82 /min bpm [facility] Vital signsOrdered By: Christiano Weinberg on 02-19-2024 Oxygen saturation in Venous blood 19.6 % [facility] XR Chest Single viewon 02-18 Extensive patchy bilateral pulmonary consolidation, which may be due to alveolar edema versus pneumonia. Moderate bilateral pleural effusions. Report Dictated on Electronically Signed By: Ana Ashton MD Electronically Signed Date/Time: 02/19/2024 4:37 AM EST [facility] Patient Name: APOORVA GONZALEZ [...] No pneumothorax is identified. OSSEOUS STRUCTURES: Unremarkable. [facility] Ana Ashton M D - 02/19/2024 Patient Name: APOORVA GONZALEZ : 1950 Exam [...] Electronically Signed Date/Time: 02/19/2024 4:37 AM EST [facility] [employer] Radiology Study observation (narrative) [facility] [employer] XR Chest Single viewOrdered By: Ana Ashton on 02-19-2024 [facility] [employer] Work Phone: Basic metabolic 1998 panelon 02-12-2024 Anion gap [Moles/Vol] 12 mmol/L 3 - 13 mmol/L [facility] [employer] Calcium [Mass/Vol] 8.7 mg/dL 8.4 - 10. 4 mg/dL [facility] Chloride [Moles/Vol] 90 mmol/L Low 98 - 10 7 mmol/L [facility] CO2 [Moles/Vol] 32 mmol/L High 22 - 30 mmol/L [facility] Creatinine [Mass/Vol] 2.71 mg/dL High 0.52 - 1.04 mg/dL [facility] GFR/1.73 sq M.predicted (S/P/Bld) [Vol rate/Area] 18 mL/min Low - PINF [facility] Comment on above: Calculation based on the Chronic Kidney Disease Epidemiology Collaboration (CKD-EPI) equation refit without adjustment for race Glucose [Mass/Vol] 92 mg/dL 70 - 100 mg/dL [facility] Interpretation and review of laboratory results Abnormal [facility] Potassium [Moles/Vol] 4 mmol/L 3.5 - 5.1 mmol/L [facility] Sodium [Moles/Vol] 134 mmol/L Low 135 - 145 mmol/L [facility] Urea nitrogen [Mass/Vol] 11 mg/dL 7 - 17 mg/dL [facility] Slightly Hemolyzed. Interpret K+ with caution. [facility] CBC panel Auto (Bld)on 02-11 Erythrocyte distribution width (RBC) [Ratio] 16.3 % High 11.5 - 15.0 % [facility] Hematocrit (Bld) [Volume fraction] 23.7 % Low 35.0 - 47.0 % [facility] Hemoglobin (Bld) [Mass/Vol] 7.6 g/dL Low 11.7 - 16.0 g/dL [facility] Interpretation and review of laboratory results Abnormal [facility] MCH (RBC) [Entitic mass] 30.8 pg 26.0 - 34.0 pg [facility] MCHC (RBC) [Mass/Vol] 32.1 % 30.5 - 36.0 % [facility] MCV (RBC) [Entitic vol] 96 fL 77.0 - 99.0 fL [facility] Platelet mean volume (Bld) [Entitic vol] 11 fL 9.0 - 12.7 fL [facility] Platelets (Bld) [#/Vol] 385 10*3/uL 140 - 440 10*3/uL [facility] RBC (Bld) [#/Vol] 2.47 10*6/uL Low 3.80 - 5.2 0 10*6/uL [facility] WBC (Bld) [#/Vol] 11.5 10*3/uL High 3.6 - 10.7 10*3/uL [facility] Laboratory - Chemistry and C hemistry - challengeon 02-12-2024 Troponin I.cardiac [Mass/Vol] 0.03 ng/mL NINF - 0.034 ng/mL [facility] Troponin I.cardiac [Mass/Vol ]on 02-12-2024 Interpretation and review of laboratory results Normal [facility] Slightly Hemolyzed. Interpret Troponin I with caution. Patients with high levels of Biotin oral intake (ie >5 mg/day) may have falsely decreased Troponin levels. [facility] Basic metabolic 1998 panelon 01-25-2024 Anion gap [Moles/Vol] 17 mmol/L High 3 - 13 mmol/L [facility] Calcium [Mass/Vol] 8.3 mg/dL Low 8.4 - 10. 4 mg/dL [facility] Chloride [Moles/Vol] 101 mmol/L 98 - 10 7 mmol/L [facility] CO2 [Moles/Vol] 18 mmol/L Low 22 - 30 mmol/L [facility] Creatinine [Mass/Vol] 8.47 mg/dL High 0.52 - 1.04 mg/dL [facility] GFR/1.73 sq M.predicted (S/P/Bld) [Vol rate/Area] 4.6 mL/min Low - PINF [facility] Comment on above: Calculation based on the Chronic Kidney Disease Epidemiology Collaboration (CKD-EPI) equation refit without adjustment for race Glucose [Mass/Vol] 82 mg/dL 70 - 100 mg/dL [facility] Interpretation and review of laboratory results Abnormal [facility] Potassium [Moles/Vol] 4.6 mmol/L 3.5 - 5.1 mmol/L [facility] Sodium [Moles/Vol] 136 mmol/L 135 - 145 mmol/L [facility] Urea nitrogen [Mass/Vol] 36 mg/dL High 7 - 17 mg/dL [facility] CBC W Auto Differential pane l (Bld)on 01-25-2024 Basophils (Bld) [#/Vol] 0.1 10*3/uL 0.0 - 0.2 10*3/uL [facility] Basophils/100 WBC (Bld) 0.9 % 0.0 - 2.0 % [facility] Eosinophils (Bld) [#/Vol] 0.3 10*3/uL 0.0 - 0.5 10*3/uL [facility] Eosinophils/100 WBC (Bld) 1.7 % 0.0 - 6.0 % [facility] Erythrocyte distribution width (RBC) [Ratio] 15.7 % High 11.5 - 15.0 % [facility] Hematocrit (Bld) [Volume fraction] 26.4 % Low 35.0 - 47.0 % [facility] Hemoglobin (Bld) [Mass/Vol] 8.6 g/dL Low 11.7 - 16.0 g/dL [facility] Immature granulocytes (Bld) [#/Vol] 0.1 10*3/uL High NINF - 0.1 10*3/uL [facility] Immature granulocytes/100 WBC (Bld) 0.7 % 0.0 - 2.0 % [facility] Interpretation and review of laboratory results Abnormal [facility] Lymphocytes (Bld) [#/Vol] 2.3 10*3/uL 1.0 - 4.3 10*3/uL [facility] Lymphocytes/100 WBC (Bld) 15.3 % 15.0 - 45.0 % [facility] MCH (RBC) [Entitic mass] 30.3 pg 26.0 - 34.0 pg [facility] MCHC (RBC) [Mass/Vol] 32.6 % 30.5 - 36.0 % [facility] MCV (RBC) [Entitic vol] 93 fL 77.0 - 99.0 fL [facility] Monocytes (Bld) [#/Vol] 0.8 10*3/uL 0.0 - 0.9 10*3/uL [facility] Monocytes/100 WBC (Bld) 5 % 5.0 - 13.0 % [facility] Neutrophils (Bld) [#/Vol] 11.6 10*3/uL High 1.8 - 7.5 10*3/uL [facility] Neutrophils/100 WBC (Bld) 76.4 % 38.0 - 82.0 % [facility] Nucleated RBC/100 WBC (Bld) [Ratio] 0 % [facility] Platelet mean volume (Bld) [Entitic vol] 9.8 fL 9.0 - 12.7 fL [facility] Platelets (Bld) [#/Vol] 400 10*3/uL 140 - 440 10*3/uL [facility] RBC (Bld) [#/Vol] 2.84 10*6/uL Low 3.80 - 5.2 0 10*6/uL [facility] WBC (Bld) [#/Vol] 15.1 10*3/uL High 3.6 - 10.7 10*3/uL [facility] Laboratory - Chemistry and C hemistry - challengeon 01-25-2024 Magnesium [Mass/Vol] 2.2 mg/dL 1.6 - 2 .3 mg/dL [facility] Magnesium [Mass/Vol]on 01-24 Interpretation and review of laboratory results Normal [facility] No Panel Informationon 01-24 [facility] Phosphate [Moles/Vol]on 01-04 Interpretation and review of laboratory results Abnormal [facility] Phosphate [Mass/Vol] 5.7 mg/dL High 2.5 - 4 .5 mg/dL [facility] Basic metabolic 1998 panelOr dered By: Mak Hobbs on 01-24-2024 Anion gap [Moles/Vol] 11 mmol/L 3 - 13 mmol/L [facility] Calcium [Mass/Vol] 7.7 mg/dL Low 8.4 - 10. 4 mg/dL [facility] Chloride [Moles/Vol] 103 mmol/L 98 - 10 7 mmol/L [facility] CO2 [Moles/Vol] 23 mmol/L 22 - 30 mmol/L [facility] Creatinine [Mass/Vol] 6.63 mg/dL High 0.52 - 1.04 mg/dL [facility] GFR/1.73 sq M.predicted (S/P/Bld) [Vol rate/Area] 6.2 mL/min Low - PINF [facility] Comment on above: Calculation based on the Chronic Kidney Disease Epidemiology Collaboration (CKD-EPI) equation refit without adjustment for race Glucose [Mass/Vol] 116 mg/dL High 70 - 100 mg/dL [facility] Interpretation and review of laboratory results Abnormal [facility] Potassium [Moles/Vol] 4 mmol/L 3.5 - 5.1 mmol/L [facility] Sodium [Moles/Vol] 136 mmol/L 135 - 145 mmol/L [facility] Urea nitrogen [Mass/Vol] 30 mg/dL High 7 - 17 mg/dL [facility] Blood type and Crossmatch pa kojo (Bld)on 01-24-2024 ABO group Nom (Bld) O [facility] Blood group antibody screen GEL Ql Negative [facility] D Ag Ql (RBC) Positive [facility] CBC W Auto Differential pane l (Bld)on 01-24-2024 Basophils (Bld) [#/Vol] 0.1 10*3/uL 0.0 - 0.2 10*3/uL [facility] Basophils/100 WBC (Bld) 0.7 % 0.0 - 2.0 % [facility] Eosinophils (Bld) [#/Vol] 0.2 10*3/uL 0.0 - 0.5 10*3/uL [facility] Eosinophils/100 WBC (Bld) 1.7 % 0.0 - 6.0 % [facility] Erythrocyte distribution width (RBC) [Ratio] 16.3 % High 11.5 - 15.0 % [facility] Hematocrit (Bld) [Volume fraction] 19.8 % Low 35.0 - 47.0 % [facility] Hemoglobin (Bld) [Mass/Vol] 6.4 g/dL Critically low 11.7 - 16.0 g/dL [facility] Immature granulocytes (Bld) [#/Vol] 0.1 10*3/uL High NINF - 0.1 10*3/uL [facility] Immature granulocytes/100 WBC (Bld) 0.8 % 0.0 - 2.0 % [facility] Interpretation and review of laboratory results Abnormal [facility] Lymphocytes (Bld) [#/Vol] 1.5 10*3/uL 1.0 - 4.3 10*3/uL [facility] Lymphocytes/100 WBC (Bld) 10.5 % Low 15.0 - 45.0 % [facility] MCH (RBC) [Entitic mass] 29.9 pg 26.0 - 34.0 pg [facility] MCHC (RBC) [Mass/Vol] 32.3 % 30.5 - 36.0 % [facility] MCV (RBC) [Entitic vol] 92.5 fL 77.0 - 99.0 fL [facility] Monocytes (Bld) [#/Vol] 0.6 10*3/uL 0.0 - 0.9 10*3/uL [facility] [employer] Monocytes/100 WBC (Bld) 4.4 % Low 5.0 - 13.0 % [facility] [employer] Neutrophils (Bld) [#/Vol] 11.6 10*3/uL High 1.8 - 7.5 10*3/uL [facility] Neutrophils/100 WBC (Bld) 81.9 % 38.0 - 82.0 % [facility] [employer] Nucleated RBC/100 WBC (Bld) [Ratio] 0 % [facility] [employer] Platelet mean volume (Bld) [Entitic vol] 10 fL 9.0 - 12.7 fL [facility] [employer] Platelets (Bld) [#/Vol] 327 10*3/uL 140 - 440 10*3/uL [facility] RBC (Bld) [#/Vol] 2.14 10*6/uL Low 3.80 - 5.2 0 10*6/uL [facility] WBC (Bld) [#/Vol] 14.2 10*3/uL High 3.6 - 10.7 10*3/uL [facility] Guidance for embolization of [place]ess[place] 01-24-2024 Angiography [...] a permanent image was stored. A 5 [place] short sheath was placed. Vessel accessed: Left [...] MD Electronically Signed Date/Time: 01/24/2024 5:35 PM T [employer] Patient Name: APOORVA GONZALEZ : 1950 [facility]#: [id number] Exam Date/Time: 01/24/2024 17:22 Procedure: IR EMBOLIZATION Ordering Provider: COLLIER LATHA Reason For Exam: as above PROCEDURE: Mesenteric angiography Procedural Personnel Attending physician(s): Jovan Glynn MD Indication: Gastrointestinal bleeding Additional clinical history: Patient with history of multiple gastrointestinal hemorrhage episodes status post 01/19/2024 angiogram, now presenting with tagged red blood cell scan positive for bleeding at the splenic flexure. Complications: No immediate complications. [facility] Jovan Glynn MD - 01/24/2024 Patient [...] a permanent image was stored. A 5 [place] short sheath was placed. Vessel accessed: Left [...] Electronically Signed Date/Time: 01/24/2024 5:35 PM EDT [facility] Radiology Study observation (narrative) [facility] Guidance for embolization of VesselsOrdered By: Jovan Glynn on 01-24-2024 [facility] [employer] Work Phone: Hemoglobin (Bld) [Mass/Vol]o n 01-24-2024 Hematocrit (Bld) [Volume fraction] 23.7 % Low 35.0 - 47.0 % [facility] Interpretation and review of laboratory results Abnormal [facility] Hemoglobin (Bld) [Mass/Vol]O rdered By: Ct Hays on 01-24-2024 Hematocrit (Bld) [Volume fraction] 23 % Low 35.0 - 47.0 % [facility] Interpretation and review of laboratory results Abnormal [facility] Laboratory - Chemistry and C hemistry - challengeon 01-24-2024 Magnesium [Mass/Vol] 2 mg/dL 1.6 - 2 .3 mg/dL [facility] Laboratory - Hematology and Cell countson 01-24-2024 Hemoglobin (Bld) [Mass/Vol] 7.7 g/dL Low 11.7 - 16.0 g/dL [facility] Laboratory - Hematology and Cell countsOrdered By: Ct Hays on 01-24-2024 Hemoglobin (Bld) [Mass/Vol] 7.7 g/dL Low 11.7 - 16.0 g/dL [facility] Magnesium [Mass/Vol]on 01-23 Interpretation and review of laboratory results Normal [facility] Gastrointestinal tract Vi ews for gastrointestinal bleedingon 01-24-2024 Findings consistent with active gastrointestinal hemorrhage, which appears to originate from the colon near the splenic flexure. Report Dictated on Electronically Signed By: Veronica Monsivais MD Electronically Signed Date/Time: 01/24/2024 2:58 PM EDT [facility] Patient Name: APOORVA GONZALEZ : 1950 [...] the liver, spleen, and large intra-abdominal vessels. [facility] Veronica Monsivais MD - 01/24/2024 Patient Name: [...] Electronically Signed Date/Time: 01/24/2024 2:58 PM EDT [facility] Radiology Study observation (narrative) [facility] NM Gastrointestinal tract Vi ews for gastrointestinal bleedingOrdered By: Veronica Monsivais on 01-24-2024 [facility] No Panel Informationon 01-23 Blood Expiration Date [id number] S [facility] Crossmatch interpretation COMP [facility] [employer] Dispense Status Transfused [facility] [employer] Product Blood Type 5100 [facility] [employer] PRODUCT CODE [id number] [facility] Unit ABO O [facility] Unit Number [id number] [facility] Unit RH Positive [facility] Unit Volume 300 mL [facility] Phosphate [Moles/Vol]on 01-04 Interpretation and review of laboratory results Abnormal [facility] Phosphate [Mass/Vol] 5 mg/dL High 2.5 - 4 .5 mg/dL [facility] Basic metabolic 1998 panelOr dered By: Gracie Wooten on 01-23-2024 Anion gap [Moles/Vol] 5 mmol/L 3 - 13 mmol/L [facility] Calcium [Mass/Vol] 7.6 mg/dL Low 8.4 - 10. 4 mg/dL [facility] Chloride [Moles/Vol] 101 mmol/L 98 - 10 7 mmol/L [facility] CO2 [Moles/Vol] 30 mmol/L 22 - 30 mmol/L [facility] [employer] Creatinine [Mass/Vol] 4.86 mg/dL High 0.52 - 1.04 mg/dL [facility] [employer] GFR/1.73 sq M.predicted (S/P/Bld) [Vol rate/Area] 8.9 mL/min Low - PINF [facility] Comment on above: Calculation based on the Chronic Kidney Disease Epidemiology Collaboration (CKD-EPI) equation refit without adjustment for race Glucose [Mass/Vol] 107 mg/dL High 70 - 100 mg/dL [facility] Interpretation and review of laboratory results Abnormal [facility] [employer] Potassium [Moles/Vol] 4.4 mmol/L 3.5 - 5.1 mmol/L [facility] [employer] Sodium [Moles/Vol] 136 mmol/L 135 - 145 mmol/L [facility] [employer] Urea nitrogen [Mass/Vol] 26 mg/dL High 7 - 17 mg/dL [facility] CBC W Auto Differential pane l (Bld)on 01-23-2024 Basophils (Bld) [#/Vol] 0.1 10*3/uL 0.0 - 0.2 10*3/uL [facility] Basophils/100 WBC (Bld) 0.7 % 0.0 - 2.0 % [facility] Eosinophils (Bld) [#/Vol] 0.4 10*3/uL 0.0 - 0.5 10*3/uL [facility] [employer] Eosinophils/100 WBC (Bld) 3.1 % 0.0 - 6.0 % [facility] Erythrocyte distribution width (RBC) [Ratio] 16 % High 11.5 - 15.0 % [facility] Hematocrit (Bld) [Volume fraction] 24.7 % Low 35.0 - 47.0 % [facility] Hemoglobin (Bld) [Mass/Vol] 8 g/dL Low 11.7 - 16.0 g/dL [facility] [employer] Immature granulocytes (Bld) [#/Vol] 0.1 10*3/uL High NINF - 0.1 10*3/uL [facility] [employer] Immature granulocytes/100 WBC (Bld) 0.7 % 0.0 - 2.0 % [facility] Interpretation and review of laboratory results Abnormal [facility] [employer] Lymphocytes (Bld) [#/Vol] 1.6 10*3/uL 1.0 - 4.3 10*3/uL [facility] Lymphocytes/100 WBC (Bld) 11.5 % Low 15.0 - 45.0 % [facility] MCH (RBC) [Entitic mass] 29.6 pg 26.0 - 34.0 pg [facility] MCHC (RBC) [Mass/Vol] 32.4 % 30.5 - 36.0 % [facility] MCV (RBC) [Entitic vol] 91.5 fL 77.0 - 99.0 fL [facility] Monocytes (Bld) [#/Vol] 0.9 10*3/uL 0.0 - 0.9 10*3/uL [facility] Monocytes/100 WBC (Bld) 6.4 % 5.0 - 13.0 % [facility] Neutrophils (Bld) [#/Vol] 10.7 10*3/uL High 1.8 - 7.5 10*3/uL [facility] Neutrophils/100 WBC (Bld) 77.6 % 38.0 - 82.0 % [facility] Nucleated RBC/100 WBC (Bld) [Ratio] 0 % [facility] Platelet mean volume (Bld) [Entitic vol] 10 fL 9.0 - 12.7 fL [facility] Platelets (Bld) [#/Vol] 325 10*3/uL 140 - 440 10*3/uL [facility] RBC (Bld) [#/Vol] 2.7 10*6/uL Low 3.80 - 5.2 0 10*6/uL [facility] WBC (Bld) [#/Vol] 13.8 10*3/uL High 3.6 - 10.7 10*3/uL [facility] Laboratory - Chemistry and C hemistry - challengeon 01-23-2024 Glucose [Mass/Vol] 87 mg/dL 70 - 100 mg/dL [facility] Magnesium [Mass/Vol] 2.1 mg/dL 1.6 - 2 .3 mg/dL [facility] No Panel Informationon 01-22 Interpretation and review of laboratory results Normal [facility] Performed by: [facility], [address] [place], [place] [id number] CLIA ID: [id number] [facility] Interpretation and review of laboratory results Normal [facility] Phosphate [Moles/Vol]on 01-04 Phosphate [Mass/Vol] 4.3 mg/dL 2.5 - 4 .5 mg/dL [facility] Basic metabolic 1998 panelOr dered By: Christiano Weinberg on 01-22-2024 Anion gap [Moles/Vol] 9 mmol/L 3 - 13 mmol/L [facility] Calcium [Mass/Vol] 6.7 mg/dL Low 8.4 - 10. 4 mg/dL [facility] Chloride [Moles/Vol] 102 mmol/L 98 - 10 7 mmol/L [facility] CO2 [Moles/Vol] 21 mmol/L Low 22 - 30 mmol/L [facility] Creatinine [Mass/Vol] 7.66 mg/dL High 0.52 - 1.04 mg/dL [facility] GFR/1.73 sq M.predicted (S/P/Bld) [Vol rate/Area] 5.2 mL/min Low - PINF [facility] Comment on above: Calculation based on the Chronic Kidney Disease Epidemiology Collaboration (CKD-EPI) equation refit without adjustment for race Glucose [Mass/Vol] 78 mg/dL 70 - 100 mg/dL [facility] Interpretation and review of laboratory results Abnormal [facility] Potassium [Moles/Vol] 4.8 mmol/L 3.5 - 5.1 mmol/L [facility] Sodium [Moles/Vol] 133 mmol/L Low 135 - 145 mmol/L [facility] Urea nitrogen [Mass/Vol] 49 mg/dL High 7 - 17 mg/dL [facility] CBC W Auto Differential pane l (Bld)on 01-22-2024 Basophils (Bld) [#/Vol] 0.1 10*3/uL 0.0 - 0.2 10*3/uL [facility] Basophils/100 WBC (Bld) 0.5 % 0.0 - 2.0 % [facility] Eosinophils (Bld) [#/Vol] 0.5 10*3/uL 0.0 - 0.5 10*3/uL [facility] Eosinophils/100 WBC (Bld) 2.5 % 0.0 - 6.0 % [facility] Erythrocyte distribution width (RBC) [Ratio] 16.8 % High 11.5 - 15.0 % [facility] Hematocrit (Bld) [Volume fraction] 24.3 % Low 35.0 - 47.0 % [facility] Hemoglobin (Bld) [Mass/Vol] 8 g/dL Low 11.7 - 16.0 g/dL [facility] Immature granulocytes (Bld) [#/Vol] 0.1 10*3/uL High NINF - 0.1 10*3/uL [facility] Immature granulocytes/100 WBC (Bld) 0.6 % 0.0 - 2.0 % [facility] Interpretation and review of laboratory results Abnormal [facility] Lymphocytes (Bld) [#/Vol] 2.4 10*3/uL 1.0 - 4.3 10*3/uL [facility] Lymphocytes/100 WBC (Bld) 13.4 % Low 15.0 - 45.0 % [facility] MCH (RBC) [Entitic mass] 29.5 pg 26.0 - 34.0 pg [facility] MCHC (RBC) [Mass/Vol] 32.9 % 30.5 - 36.0 % [facility] MCV (RBC) [Entitic vol] 89.7 fL 77.0 - 99.0 fL [facility] Monocytes (Bld) [#/Vol] 1.3 10*3/uL High 0.0 - 0.9 10*3/uL [facility] Monocytes/100 WBC (Bld) 7.1 % 5.0 - 13.0 % [facility] Neutrophils (Bld) [#/Vol] 13.4 10*3/uL High 1.8 - 7.5 10*3/uL [facility] Neutrophils/100 WBC (Bld) 75.9 % 38.0 - 82.0 % [facility] Nucleated RBC/100 WBC (Bld) [Ratio] 0 % [facility] Platelet mean volume (Bld) [Entitic vol] 10.4 fL 9.0 - 12.7 fL [facility] Platelets (Bld) [#/Vol] 292 10*3/uL 140 - 440 10*3/uL [facility] RBC (Bld) [#/Vol] 2.71 10*6/uL Low 3.80 - 5.2 0 10*6/uL [facility] WBC (Bld) [#/Vol] 17.7 10*3/uL High 3.6 - 10.7 10*3/uL [facility] HBV surface Ab IA Qnon 01-21 Interpretation: <8.0 Non-Reactive 8.0-11.9 Equivocal >= 12.0 Ab Detected Note: If an equivocal result is interpreted, an antibody status is unable to be determined. Collect new specimen if clinically indicated. [facility] HBV surface Ag IA Qlon 01-21 Interpretation and review of laboratory results Normal [facility] Laboratory - Chemistry and C hemistry - challengeon 01-22-2024 Magnesium [Mass/Vol] 2.2 mg/dL 1.6 - 2 .3 mg/dL [facility] Laboratory - Microbiology an d Antimicrobial susceptibilityon 01-22-2024 HBV surface Ab IA Qn mIU/mL [facility] HBV surface Ag IA Ql Not detected Not Detected [facility] Magnesium [Mass/Vol]on 01-21 Interpretation and review of laboratory results Normal [facility] No Panel Informationon 01-21 [facility] Phosphate [Moles/Vol]on 01-03 Interpretation and review of laboratory results Abnormal [facility] Phosphate [Mass/Vol] 5.5 mg/dL High 2.5 - 4 .5 mg/dL [facility] Basic metabolic 1997 panelOr dered By: Handy Jarvis on 01-21-2024 Anion gap [Moles/Vol] 9 mmol/L 3 - 13 mmol/L [facility] Calcium [Mass/Vol] 7.4 mg/dL Low 8.4 - 10. 4 mg/dL [facility] Chloride [Moles/Vol] 100 mmol/L 98 - 10 7 mmol/L [facility] CO2 [Moles/Vol] 26 mmol/L 22 - 30 mmol/L [facility] Creatinine [Mass/Vol] 4.74 mg/dL High 0.52 - 1.04 mg/dL [facility] GFR/1.73 sq M.predicted (S/P/Bld) [Vol rate/Area] 9.2 mL/min Low - PINF [facility] Comment on above: Calculation based on the Chronic Kidney Disease Epidemiology Collaboration (CKD-EPI) equation refit without adjustment for race Glucose [Mass/Vol] 85 mg/dL 70 - 100 mg/dL [facility] Interpretation and review of laboratory results Abnormal [facility] Potassium [Moles/Vol] 4.5 mmol/L 3.5 - 5.1 mmol/L [facility] Sodium [Moles/Vol] 135 mmol/L 135 - 145 mmol/L [facility] Urea nitrogen [Mass/Vol] 26 mg/dL High 7 - 17 mg/dL [facility] CBC W Auto Differential pane l (Bld)on 01-21-2024 Basophils (Bld) [#/Vol] 0.1 10*3/uL 0.0 - 0.2 10*3/uL [facility] Basophils/100 WBC (Bld) 0.6 % 0.0 - 2.0 % [facility] Eosinophils (Bld) [#/Vol] 0.1 10*3/uL 0.0 - 0.5 10*3/uL [facility] Eosinophils/100 WBC (Bld) 0.6 % 0.0 - 6.0 % [facility] Erythrocyte distribution width (RBC) [Ratio] 16.4 % High 11.5 - 15.0 % [facility] Hematocrit (Bld) [Volume fraction] 21 % Low 35.0 - 47.0 % [facility] Hemoglobin (Bld) [Mass/Vol] 7 g/dL Low 11.7 - 16.0 g/dL [facility] Immature granulocytes (Bld) [#/Vol] 0.2 10*3/uL High NINF - 0.1 10*3/uL [facility] Immature granulocytes/100 WBC (Bld) 0.7 % 0.0 - 2.0 % [facility] Interpretation and review of laboratory results Abnormal [facility] Lymphocytes (Bld) [#/Vol] 2.8 10*3/uL 1.0 - 4.3 10*3/uL [facility] Lymphocytes/100 WBC (Bld) 12.4 % Low 15.0 - 45.0 % [facility] MCH (RBC) [Entitic mass] 30.2 pg 26.0 - 34.0 pg [facility] MCHC (RBC) [Mass/Vol] 33.3 % 30.5 - 36.0 % [facility] MCV (RBC) [Entitic vol] 90.5 fL 77.0 - 99.0 fL [facility] Monocytes (Bld) [#/Vol] 1.2 10*3/uL High 0.0 - 0.9 10*3/uL [facility] Monocytes/100 WBC (Bld) 5.4 % 5.0 - 13.0 % [facility] Neutrophils (Bld) [#/Vol] 18.3 10*3/uL High 1.8 - 7.5 10*3/uL [facility] Neutrophils/100 WBC (Bld) 80.3 % 38.0 - 82.0 % [facility] Nucleated RBC/100 WBC (Bld) [Ratio] 0 % [facility] Platelet mean volume (Bld) [Entitic vol] 10.5 fL 9.0 - 12.7 fL [facility] Platelets (Bld) [#/Vol] 268 10*3/uL 140 - 440 10*3/uL [facility] RBC (Bld) [#/Vol] 2.32 10*6/uL Low 3.80 - 5.2 0 10*6/uL [facility] WBC (Bld) [#/Vol] 22.8 10*3/uL High 3.6 - 10.7 10*3/uL [facility] Hemoglobin (Bld) [Mass/Vol]o n 01-21-2024 Hematocrit (Bld) [Volume fraction] 24.9 % Low 35.0 - 47.0 % [facility] Interpretation and review of laboratory results Abnormal [facility] Hemoglobin (Bld) [Mass/Vol]O rdered By: Shauna Ayon on 01-21-2024 Hematocrit (Bld) [Volume fraction] 20.4 % Low 35.0 - 47.0 % [facility] Interpretation and review of laboratory results Abnormal [facility] Laboratory - Chemistry and C hemistry - challengeon 01-21-2024 Magnesium [Mass/Vol] 2 mg/dL 1.6 - 2 .3 mg/dL [facility] Laboratory - Hematology and Cell countson 01-21-2024 Hemoglobin (Bld) [Mass/Vol] 8.2 g/dL Low 11.7 - 16.0 g/dL [facility] Laboratory - Hematology and Cell countsOrdered By: Shauna Ayon on 01-21-2024 Hemoglobin (Bld) [Mass/Vol] 6.8 g/dL Critically low 11.7 - 16.0 g/dL [facility] Magnesium [Mass/Vol]on 01-20 Interpretation and review of laboratory results Normal [facility] No Panel Informationon 01-20 Blood Expiration Date S [facility] Crossmatch interpretation COMP [facility] Dispense Status Transfused [facility] Product Blood Type 5100 [facility] PRODUCT CODE [id number] [facility] Unit ABO O [facility] Unit Number [id number] [facility] Unit RH Positive [facility] Unit Volume 300 mL [facility] Phosphate [Moles/Vol]on 01-03 Interpretation and review of laboratory results Abnormal [facility] Phosphate [Mass/Vol] 6.4 mg/dL High 2.5 - 4 .5 mg/dL [facility] Basic metabolic 1998 panelon 01-20-2024 Anion gap [Moles/Vol] 9 mmol/L 3 - 13 mmol/L [facility] Calcium [Mass/Vol] 7.2 mg/dL Low 8.4 - 10. 4 mg/dL [facility] Chloride [Moles/Vol] 97 mmol/L Low 98 - 10 7 mmol/L [facility] CO2 [Moles/Vol] 27 mmol/L 22 - 30 mmol/L [facility] Creatinine [Mass/Vol] 8.34 mg/dL High 0.52 - 1.04 mg/dL [facility] GFR/1.73 sq M.predicted (S/P/Bld) [Vol rate/Area] 4.7 mL/min Low - PINF [facility] Comment on above: Calculation based on the Chronic Kidney Disease Epidemiology Collaboration (CKD-EPI) equation refit without adjustment for race Glucose [Mass/Vol] 116 mg/dL High 70 - 100 mg/dL [facility] Interpretation and review of laboratory results Abnormal [facility] Potassium [Moles/Vol] 5.3 mmol/L High 3.5 - 5.1 mmol/L [facility] Sodium [Moles/Vol] 132 mmol/L Low 135 - 145 mmol/L [facility] Urea nitrogen [Mass/Vol] 50 mg/dL High 7 - 17 mg/dL [facility] CBC W Auto Differential pane l (Bld)on 01-20-2024 Basophils (Bld) [#/Vol] 0.1 10*3/uL 0.0 - 0.2 10*3/uL [facility] Basophils/100 WBC (Bld) 0.5 % 0.0 - 2.0 % [facility] Eosinophils (Bld) [#/Vol] 0 10*3/uL 0.0 - 0.5 10*3/uL [facility] Eosinophils/100 WBC (Bld) 0 % 0.0 - 6.0 % [facility] [employer] Erythrocyte distribution width (RBC) [Ratio] 15.6 % High 11.5 - 15.0 % [facility] Hematocrit (Bld) [Volume fraction] 24.9 % Low 35.0 - 47.0 % [facility] Hemoglobin (Bld) [Mass/Vol] 8.5 g/dL Low 11.7 - 16.0 g/dL [facility] [employer] Immature granulocytes (Bld) [#/Vol] 0.1 10*3/uL High NINF - 0.1 10*3/uL [facility] Immature granulocytes/100 WBC (Bld) 0.6 % 0.0 - 2.0 % [facility] Interpretation and review of laboratory results Abnormal [facility] Lymphocytes (Bld) [#/Vol] 2 10*3/uL 1.0 - 4.3 10*3/uL [facility] Lymphocytes/100 WBC (Bld) 10 % Low 15.0 - 45.0 % [facility] MCH (RBC) [Entitic mass] 30.5 pg 26.0 - 34.0 pg [facility] MCHC (RBC) [Mass/Vol] 34.1 % 30.5 - 36.0 % [facility] MCV (RBC) [Entitic vol] 89.2 fL 77.0 - 99.0 fL [facility] Monocytes (Bld) [#/Vol] 1.1 10*3/uL High 0.0 - 0.9 10*3/uL [facility] Monocytes/100 WBC (Bld) 5.4 % 5.0 - 13.0 % [facility] Neutrophils (Bld) [#/Vol] 16.8 10*3/uL High 1.8 - 7.5 10*3/uL [facility] Neutrophils/100 WBC (Bld) 83.5 % High 38.0 - 82.0 % [facility] Nucleated RBC/100 WBC (Bld) [Ratio] 0 % [facility] [employer] Platelet mean volume (Bld) [Entitic vol] 10.5 fL 9.0 - 12.7 fL [facility] [employer] Platelets (Bld) [#/Vol] 285 10*3/uL 140 - 440 10*3/uL [facility] RBC (Bld) [#/Vol] 2.79 10*6/uL Low 3.80 - 5.2 0 10*6/uL [facility] WBC (Bld) [#/Vol] 20.1 10*3/uL High 3.6 - 10.7 10*3/uL [facility] Hemoglobin (Bld) [Mass/Vol]O rdered By: Adrienne Bradshaw on 01-20-2024 Hematocrit (Bld) [Volume fraction] 24.7 % Low 35.0 - 47.0 % [facility] Interpretation and review of laboratory results Abnormal [facility] Hemoglobin (Bld) [Mass/Vol]o n 01-20-2024 Hematocrit (Bld) [Volume fraction] 21.3 % Low 35.0 - 47.0 % [facility] Interpretation and review of laboratory results Abnormal [facility] Hematocrit (Bld) [Volume fraction] 23.4 % Low 35.0 - 47.0 % [facility] Interpretation and review of laboratory results Abnormal [facility] Hemoglobin (Bld) [Mass/Vol]O rdered By: Andre Ervin on 01-20-2024 Hematocrit (Bld) [Volume fraction] 28.4 % Low 35.0 - 47.0 % [facility] Interpretation and review of laboratory results Abnormal [facility] Laboratory - Chemistry and C hemistry - challengeon 01-20-2024 Magnesium [Mass/Vol] 2 mg/dL 1.6 - 2 .3 mg/dL [facility] Laboratory - Hematology and Cell countsOrdered By: Adrienne Bradshaw on 01-20-2024 Hemoglobin (Bld) [Mass/Vol] 8.3 g/dL Low 11.7 - 16.0 g/dL [facility] Laboratory - Hematology and Cell countson 01-20-2024 Hemoglobin (Bld) [Mass/Vol] 7.3 g/dL Low 11.7 - 16.0 g/dL [facility] Hemoglobin (Bld) [Mass/Vol] 7.9 g/dL Low 11.7 - 16.0 g/dL [facility] Laboratory - Hematology and Cell countsOrdered By: Andre Ervin on 01-20-2024 Hemoglobin (Bld) [Mass/Vol] 9.5 g/dL Low 11.7 - 16.0 g/dL [facility] Magnesium [Mass/Vol]on 01-19 Interpretation and review of laboratory results Normal [facility] No Panel InformationOrdered By: Candis Andrade on 01-20-2024 [facility] Work Phone: No Panel InformationOrdered By: Link Alaniz on 01-20-2024 P [place] 88 degrees [facility] Work Phone: [phone] [place] Interval 124 ms [facility] Work Phone: [phone] QRS [place] 33 degrees [facility] Work Phone: QRSD Interval 76 ms [facility] Work Phone: [phone] QT Interval 348 ms [facility] Work Phone: QTC Interval 455 ms [employer] Phone: [phone] T Wave [place] 60 degrees [facility] Work Phone: [phone] [facility] Work Phone: No Panel Informationon 01-19 Sinus tachycardia Consider left ventricular hypertrophy Electronically Signed On 01-20-2024 08:04:49 EDT by Link Alaniz Link Izquierdo MD - 01/20/2024 IMPRESSION: Sinus tachycardia Consider left ventricular hypertrophy Electronically Signed On 01-20-2024 08:04:49 EDT by Link Alaniz [facility] No acute abnormality . Report Dictated on Electronically Signed By: Honorio Grande MD Electronically Signed Date/Time: 01/20/2024 8:00 AM EDT [facility] Patient Name: APOORVA GONZALEZ [...] clips also noted in the antecubital fossa.. [facility] Honorio Grande MD - 01/20/2024 Patient [...] Electronically Signed Date/Time: 01/20/2024 8:00 AM EDT [facility] Radiology Study observation (narrative) [facility] Phosphate [Moles/Vol]on 01-03 Interpretation and review of laboratory results Abnormal [facility] [employer] Phosphate [Mass/Vol] 6.4 mg/dL High 2.5 - 4 .5 mg/dL [facility] RFA Celiac artery Views W co ntrast IAon 01-20-2024 Successful uncomplicated mesenteric arteriogram. Report Dictated on Electronically Signed By: Robson Andrade MD Electronically Signed Date/Time: 01/20/2024 9:37 AM EDT [facility] Patient Name: APOORVA GONZALEZ : 1950 [...] head. Access was upsized to a 5 [place] vascular sheath. Following this, a 0.035 Bentson [...] No intervention was performed at this time. [facility] [employer] [facility] Candis Andrade MD - 01/20/2024 Patient Name: APOORVA GONZALEZ : 1950 [facility]#: [id number] Exam Date/Time: 01/19/2024 23:19 Procedure: IR ANGIOGRAM [...] head. Access was upsized to a 5 [place] vascular sheath. Following this, a 0.035 Bentson wire along with a Genoom one catheter were advanced into the thoracic [...] Electronically Signed Date/Time: 01/20/2024 9:37 AM EDT [facility] [employer] Vital signsOrdered By: Link darden on 01-20-2024 Heart rate 103 /min bpm [facility] [employer] Work Phone: Blood type and Crossmatch pa kojo (Bld)on 01-19-2024 ABO group Nom (Bld) O [facility] [employer] Blood group antibody screen GEL Ql Negative [facility] [employer] D Ag Ql (RBC) Positive [facility] [employer] [facility] [employer] CBC W Auto Differential pane l (Bld)on 01-19-2024 Basophils (Bld) [#/Vol] 0.1 10*3/uL 0.0 - 0.2 10*3/uL [facility] [employer] Basophils/100 WBC (Bld) 0.6 % 0.0 - 2.0 % [facility] [employer] Eosinophils (Bld) [#/Vol] 0.1 10*3/uL 0.0 - 0.5 10*3/uL [facility] [employer] Eosinophils/100 WBC (Bld) 0.4 % 0.0 - 6.0 % [facility] [employer] Erythrocyte distribution width (RBC) [Ratio] 16.7 % High 11.5 - 15.0 % [facility] [employer] Hematocrit (Bld) [Volume fraction] 24.4 % Low 35.0 - 47.0 % [facility] [employer] Hemoglobin (Bld) [Mass/Vol] 7.7 g/dL Low 11.7 - 16.0 g/dL [facility] [employer] Immature granulocytes (Bld) [#/Vol] 0.1 10*3/uL High NINF - 0.1 10*3/uL [facility] [employer] Immature granulocytes/100 WBC (Bld) 0.4 % 0.0 - 2.0 % [facility] [employer] Interpretation and review of laboratory results Abnormal [facility] [employer] IPF 2 [facility] Lymphocytes (Bld) [#/Vol] 1.8 10*3/uL 1.0 - 4.3 10*3/uL [facility] Lymphocytes/100 WBC (Bld) 11.1 % Low 15.0 - 45.0 % [facility] MCH (RBC) [Entitic mass] 29.5 pg 26.0 - 34.0 pg [facility] MCHC (RBC) [Mass/Vol] 31.6 % 30.5 - 36.0 % [facility] MCV (RBC) [Entitic vol] 93.5 fL 77.0 - 99.0 fL [facility] Monocytes (Bld) [#/Vol] 1.1 10*3/uL High 0.0 - 0.9 10*3/uL [facility] Monocytes/100 WBC (Bld) 6.9 % 5.0 - 13.0 % [facility] Neutrophils (Bld) [#/Vol] 12.8 10*3/uL High 1.8 - 7.5 10*3/uL [facility] Neutrophils/100 WBC (Bld) 80.6 % 38.0 - 82.0 % [facility] Nucleated RBC/100 WBC (Bld) [Ratio] 0 % [facility] Platelet mean volume (Bld) [Entitic vol] 10.7 fL 9.0 - 12.7 fL [facility] Platelets (Bld) [#/Vol] 465 10*3/uL High 140 - 440 10*3/uL [facility] RBC (Bld) [#/Vol] 2.61 10*6/uL Low 3.80 - 5.2 0 10*6/uL [facility] WBC (Bld) [#/Vol] 15.9 10*3/uL High 3.6 - 10.7 10*3/uL [facility] CT Abdomen and Pelvis W cont rast Indu 01-19-2024 Descending colon active bleeding. An element of diverticulitis possible. DTR Dr Kaur Report Dictated on Electronically Signed By: Jacob Alcaraz MD Electronically Signed Date/Time: 01/19/2024 7:31 PM EDT [facility] Patient Name: APOORVA GONZALEZ : 1950 Exam Date/Time: 01/19/2024 19:20 Procedure: CT ABDOMEN [...] There is extravasation into the ascending colon. [facility] [employer] [facility] Jacob Alcaraz MD - 01/19/2024 Patient Name: APOORVA GONZALEZ : 1950 Exam Date/Time: 01/19/2024 19:20 Procedure: CT ABDOMEN [...] Electronically Signed Date/Time: 01/19/2024 7:31 PM EDT [facility] Radiology Study observation (narrative) [facility] CT Abdomen and Pelvis W cont rast IVOrdered By: Jacob Alcaraz on 01-19-2024 [facility] Work Phone: Comprehensive metabolic 1998 panelon 01-19-2024 Albumin [Mass/Vol] 4 g/dL 3.5 - 5.0 g/dL [facility] ALP [Catalytic activity/Vol] 88 U/L 38 - 126 U/L [facility] ALT [Catalytic activity/Vol] 14 U/L 0 - 34 U/L [facility] Anion gap [Moles/Vol] 13 mmol/L 3 - 13 mmol/L [facility] [employer] AST [Catalytic activity/Vol] 23 U/L 15 - 46 U/L [facility] Bilirubin [Mass/Vol] 0.5 mg/dL 0.2 - 1 .3 mg/dL [facility] Calcium [Mass/Vol] 8.7 mg/dL 8.4 - 10. 4 mg/dL [facility] Chloride [Moles/Vol] 92 mmol/L Low 98 - 10 7 mmol/L [facility] CO2 [Moles/Vol] 30 mmol/L 22 - 30 mmol/L [facility] Creatinine [Mass/Vol] 7.7 mg/dL High 0.52 - 1.04 mg/dL [facility] GFR/1.73 sq M.predicted (S/P/Bld) [Vol rate/Area] 5.1 mL/min Low - PINF [facility] Comment on above: Calculation based on the Chronic Kidney Disease Epidemiology Collaboration (CKD-EPI) equation refit without adjustment for race Glucose [Mass/Vol] 146 mg/dL High 70 - 100 mg/dL [facility] Interpretation and review of laboratory results Abnormal [facility] Potassium [Moles/Vol] 4.9 mmol/L 3.5 - 5.1 mmol/L [facility] Protein [Mass/Vol] 7 g/dL 6.3 - 8.2 g/dL [facility] Sodium [Moles/Vol] 135 mmol/L 135 - 145 mmol/L [facility] Urea nitrogen [Mass/Vol] 47 mg/dL High 7 - 17 mg/dL [facility] Laboratory - Chemistry and C hemistry - challengeon 01-19-2024 Troponin I.cardiac [Mass/Vol] ng/mL NINF - 0.034 ng/mL [facility] Laboratory - Coagulationon 1 aPTT Coag (PPP) [Time] 22.2 s 20.0 - 30.5 s [facility] INR Coag (PPP) [Relative time] 1 {INR} 0.9 - 1.1 [facility] Comment on above: Recommended Anticoag ulant Therapy: [...] [Time] 11 s 9.0 - 12.0 s [facility] No Panel Informationon 01-18 Blood Expiration Date S [facility] Crossmatch interpretation COMP [facility] Dispense Status Transfused [facility] [employer] Product Blood Type 5100 [facility] [employer] PRODUCT CODE [id number] [facility] [employer] Unit ABO O [facility] [employer] Unit Number [id number] [facility] [employer] Unit Number [id number] [facility] [employer] [facility] RH Positive [facility] Unit Volume 300 mL [facility] Interpretation and review of laboratory results Normal [facility] RFA Celiac artery Views W co ntrast IAon 01-19-2024 Radiology Study observation (narrative) [facility] Troponin I.cardiac [Mass/Vol ]on 01-19-2024 Interpretation and review of laboratory results Normal [facility] Patients with high levels of Biotin oral intake (ie >5 mg/day) may have falsely decreased Troponin levels. [facility] Renal function 2000 panelOrd ered By: Cathy Salinas on 08-09-2023 Albumin [Mass/Vol] 4.8 g/dL 3.5 - 5.0 g/dL [facility] Anion gap [Moles/Vol] 15 mmol/L High 3 - 13 mmol/L [facility] Calcium [Mass/Vol] 9.5 mg/dL 8.4 - 10. 4 mg/dL [facility] Chloride [Moles/Vol] 99 mmol/L 98 - 10 7 mmol/L [facility] CO2 [Moles/Vol] 21 mmol/L Low 22 - 30 mmol/L [facility] Creatinine [Mass/Vol] 9.07 mg/dL High 0.52 - 1.04 mg/dL [facility] [employer] GFR/1.73 sq M.predicted MDRD (S/P/Bld) [Vol rate/Area] 4.2 mL/min/{1.73_m2} Low - PINF [facility] Comment on above: Calculation based on the Chronic Kidney Disease Epidemiology Collaboration (CKD-EPI) equation refit without adjustment for race Glucose [Mass/Vol] 91 mg/dL 70 - 100 mg/dL [facility] Interpretation and review of laboratory results Abnormal [facility] Phosphate [Mass/Vol] 6.9 mg/dL High 2.5 - 4 .5 mg/dL [facility] Potassium [Moles/Vol] 6.1 mmol/L Critically high 3.5 - 5.1 mmol/L [facility] Sodium [Moles/Vol] 135 mmol/L 135 - 145 mmol/L [facility] Urea nitrogen [Mass/Vol] 65 mg/dL High 7 - 17 mg/dL [facility] Basic metabolic 1998 panelon 03-03-2023 Anion gap [Moles/Vol] 15 mmol/L High 3 - 13 mmol/L [facility] [employer] Calcium [Mass/Vol] 9.4 mg/dL 8.4 - 10. 4 mg/dL [facility] Chloride [Moles/Vol] 91 mmol/L Low 98 - 10 7 mmol/L [facility] [employer] CO2 [Moles/Vol] 28 mmol/L 22 - 30 mmol/L [facility] Creatinine [Mass/Vol] 6.25 mg/dL High 0.52 - 1.04 mg/dL [facility] GFR/1.73 sq M.predicted MDRD (S/P/Bld) [Vol rate/Area] 6.7 mL/min/{1.73_m2} Low - PINF [facility] Comment on above: Calculation based on the Chronic Kidney Disease Epidemiology Collaboration (CKD-EPI) equation refit without adjustment for race Glucose [Mass/Vol] 89 mg/dL 70 - 100 mg/dL [facility] Interpretation and review of laboratory results Abnormal [facility] Potassium [Moles/Vol] 4.3 mmol/L 3.5 - 5.1 mmol/L [facility] Sodium [Moles/Vol] 135 mmol/L 135 - 145 mmol/L [facility] Urea nitrogen [Mass/Vol] 33 mg/dL High 7 - 17 mg/dL [facility] CBC W Auto Differential pane l (Bld)Ordered By: Rudy Jacobs on 03-03-2023 Basophils (Bld) [#/Vol] 0.1 10*3/uL 0.0 - 0.2 10*3/uL [facility] Basophils/100 WBC (Bld) 1.4 % 0.0 - 2.0 % [facility] Eosinophils (Bld) [#/Vol] 0.3 10*3/uL 0.0 - 0.5 10*3/uL [facility] Eosinophils/100 WBC (Bld) 4.0 % 1.0 - 6.0 % [facility] Erythrocyte distribution width (RBC) [Ratio] 15.7 % High 11.5 - 14.5 % [facility] Hematocrit (Bld) [Volume fraction] 32.3 % Low 35.0 - 47.0 % [facility] Hemoglobin (Bld) [Mass/Vol] 10.6 g/dL Low 11.7 - 16.0 g/dL [facility] Interpretation and review of laboratory results Abnormal [facility] Lymphocytes (Bld) [#/Vol] 2.2 10*3/uL 1.0 - 4.3 10*3/uL [facility] Lymphocytes/100 WBC (Bld) 25.4 % 20.0 - 40.0 % [facility] MCH (RBC) [Entitic mass] 31.6 pg 26.0 - 34.0 pg [facility] MCHC (RBC) [Mass/Vol] 32.7 % 32.0 - 36.0 % [facility] MCV (RBC) [Entitic vol] 96.7 fL 80.0 - 98.0 fL [facility] Monocytes (Bld) [#/Vol] 0.8 10*3/uL 0.0 - 0.8 10*3/uL [facility] Monocytes/100 WBC (Bld) 8.8 % 2.0 - 10.0 % [facility] Neutrophils (Bld) [#/Vol] 5.2 10*3/uL 1.8 - 7.0 10*3/uL [facility] Neutrophils/100 WBC (Bld) 60.4 % 40.0 - 80.0 % [facility] Nucleated RBC/100 WBC (Bld) [Ratio] 0.0 % [facility] Platelet mean volume (Bld) [Entitic vol] 7.8 fL 7.4 - 12.4 fL [facility] Platelets (Bld) [#/Vol] 351 10*3/uL 140 - 440 10*3/uL [facility] RBC (Bld) [#/Vol] 3.34 10*6/uL Low 3.8 - 5.20 10*6/uL [facility] WBC (Bld) [#/Vol] 8.6 10*3/uL 3.6 - 10.7 10*3/uL [facility] No Panel Informationon 03-03 P [place] 56 degrees [facility] KS Interval 118 ms [facility] QRS [place] 13 degrees [facility] QRSD Interval 80 ms [facility] QT Interval 374 ms [facility] QTC Interval 454 ms [facility] T Wave [place] 57 degrees [facility] Sinus rhythm Left ventricular hypertrophy Normal [place] No ST or T wave changes No significant changes compared to previous Electronically Signed On 03-03-2023 10:54:21 EST by Balta Wang CV Balta Solo MD - 03/03/2023 IMPRESSION: Sinus rhythm Left ventricular hypertrophy Normal [place] No ST or T wave changes No significant changes compared to previous Electronically Signed On 03-03-2023 10:54:21 EST by Balta Wang [facility] Troponin - One Time order ON [place] 03-03-2023 Troponin I.cardiac [Mass/Vol] ng/mL [facility] - 0.034 ng/mL [facility] Troponin I.cardiac [Mass/Vol ]on 03-03-2023 Interpretation and review of laboratory results Normal [facility] Patients with high levels of Biotin oral intake (ie >5 mg/day) may have falsely decreased Troponin levels. [facility] Vital signson 03-03-2023 Heart rate 88 /min bpm [facility] DBT Breast - bilateral scree [place] 01-12-2023 No mammographic evidence of malignancy. ASSESSMENT: Category 1 Negative RECOMMENDATION: Routine screening mammogram in 1 year. Bilateral CANCER RISK ASSESSMENT: This risk assessment is based on patient provided information collected in a risk survey taken at the time of this examination. LIFETIME BREAST CANCER RISK: Susan: 3.33% - If greater than or equal [...] Electronically Signed Date/Time: 01/12/2023 11:44 AM EDT [facility] Patient Name: APOORVA GONZALEZ : 1950 [...] images: BB's = Nipples; skin lesions Open [place] = Palpable Line = Scar COMPARISON: 11/28/2020 and 09/03/2016 TISSUE DENSITY: BIRADS C - The breast tissue is heterogeneously dense, which could obscure underlying abnormalities. FINDINGS: No suspicious masses, architectural distortions or suspiciously clustered microcalcifications are identified. There is no evidence of skin thickening or nipple retraction. There are no significant changes when compared with prior studies. [facility] Nalini Márquez MD - 01/12/2023 Patient Name: APOORAV GONZALEZ : 1950 Exam Date/Time: 01/12/2023 11:31 Procedure: BI MAMMOGRAM SCREENING TOMOSYNTHESIS BILATERAL Ordering Provider: GROVE BENSON Reason For Exam: Breast cancer screening, average or low risk (Female >= 18y) Image views: 2D Bilateral CC and MLO views were acquired. 3D Bilateral CC and MLO views were acquired. Images were reviewed with CAD. Markings on images: BB's = Nipples; skin lesions Open [place] = Palpable Line = Scar COMPARISON: 11/28/2020 [...] of this examination. LIFETIME BREAST CANCER RISK: Veraer-Jeetck: 3.33% - If greater than or equal [...] Electronically Signed Date/Time: 01/12/2023 11:44 AM EDT [facility] [employer] Radiology Study observation (narrative) [facility] DBT Breast - bilateral scree ningOrdered By: Nalini Márquez on 01-12-2023 [facility] Work Phone: XR Chest Single viewon 10-01 FINDINGS AND IMPRESSION: SUPPORT DEVICES: None OSSEOUS STRUCTURES: Unremarkable. HEART AND MEDIASTINUM: The cardiomediastinal silhouette appears unchanged from the prior exam. LUNGS AND PLEURA: The lungs are clear. No sizable pleural effusion. Report Dictated on Electronically Signed By: London Hollis Electronically Signed Date/Time: 10/01/2022 1:42 PM EDT [facility] Patient Name: APOORVA GONZALEZ : 1950 Exam Date/Time: 10/01/2022 13:12 Procedure: XR CHEST 1 VIEW Ordering Provider: HILARIO DAVID Reason For Exam: vasc cath pulled from right subclavian yesterday - bleeding today CHEST CLINICAL INDICATION: Hemorrhage, recent vascular catheter removal TECHNIQUE: AP portable chest COMPARISON: 02/26/2022 [facility] RADIOLOGY SYSTEM London Hollis MD - 10/01/2022 [...] Electronically Signed Date/Time: 10/01/2022 1:42 PM EDT [facility] Radiology Study observation (narrative) [facility] [employer] XR Chest Single viewOrdered By: London Hollis on 10-01-2022 [facility] Work Phone: RF Guidance for removal of [...] Electronically Signed Date/Time: 09/30/2022 11:26 AM EDT [employer] Patient Name: APOORVA GONZALEZ : 1950 Exam Date/Time: 09/30/2022 10:19 Procedure: IR CVC TUNNELED CATHETER REMOVAL Ordering Provider: MEZA OLGA Reason For Exam: n18.6 PROCEDURE: Tunneled central venous catheter removal Procedural Personnel Attending physician(s): Jovan Glynn MD Indication: Catheter no longer needed Additional clinical history: None Complications: No immediate complications. [facility] [employer] Jovan Glynn MD - 09/30/2022 Patient [...] Electronically Signed Date/Time: 09/30/2022 11:26 AM EDT [facility] Radiology Study observation (narrative) [facility] RF Guidance for removal of t unneled CV catheterOrdered By: Jovan Glynn on 09-30-2022 [facility] - Chemistry and C hemistry - challengeon 08-07-2022 Potassium [Moles/Vol] 4.5 mmol/L 3.5 - 5.1 mmol/L [facility] [employer] Potassium [Moles/Vol]on Interpretation and review of laboratory results Normal [facility] US VEIN MAPPING UPPER BILon 06-03-2022 US [...] EXTREMITY VEINS BILATERALLY WITH ASSOCIATED MEASUREMENTS DESCRIBED. Production Shift Supervisor: PSCB Transcribe Date/Time: Jun 04 2022 7:09A Dictated by : VICTOR MANUEL WRIGHT MD This examination was interpreted and the report reviewed and electronically signed by: VICTOR MANUEL WRIGHT MD on Jun 04 2022 7:17AM EST [id number] Normal [facility] CNCOon 09-11-2021 CNCO Letter Text Normal [facility] CNPNon 12-24-2020 CNPN Telephone (TXCTGL) APOORVA GONZALEZ ([id number]) 1950 F TRN Date Time Provider Department 12/24/20 GRETCHEN DAVID) TXCTGL During your visit today, we recorded the following information about you: Gretchen David Ma 12/24/2020 3:50 PM Signed Left message reminding patient of appointment on 01/01/2021. Callback number was provided. Gretchen David Ma Allergies As of Date: 12/24/2020 (No Known Allergies) Date Reviewed: 10/25/2019 Reviewed by: Jose Antonio Adams - Fully Assessed Reason for Visit: Appointment [186] Prescriptions as of 12/24/2020 - amLODIPine-Atorvastati n 10-10 mg per tablet Take 0.5 tablets by mouth once daily. Problem List As Of Date: 12/24/2020 (None) Encounter Status:Closed by GRETCHEN DAVID MA on 12/24/20 [facility] MG Breast Tomosynthesis Scr Blon 11-28-2020 MG Breast Tomosynthesis Scr Bl Patient Name: APOORVA GONZALEZ Mammography ACCESSION EXAM DATE/TIME PROCEDURE ORDERING PROVIDER [id number] 11/28/2020 08:55 EDT MG Breast Tomosynthesis [facility] BI Scr CPT code 84327 [id number] Reason For Exam (MG Breast Tomosynthesis BI [...] MG breast tomosynthesis bl scr performed at [facility]. TISSUE DENSITY: BIRADS C - The breast [...] images: BB's = Nipples; skin lesions Open [place] = Palpable Line = Scar 2D digital [...] in high risk clinic. A score of "Low Risk" indicates a score of less than 20%. [...] pm Signed by: MD SANTOS TOM A Normal [facility] Dveen 09-24-2020 JENNYFER Telephone (TXCTGL) APOORVA GONZALEZ ([id number]) 1950 F TRN Date Time Provider Department 09/24/20 MARY ELLIOTT TXCTGL During your visit today, we recorded [...] Encounter Status:Closed by MARY ELLIOTT on 09/24/20 [facility] Deven 09-13-2020 CNPN Telephone (TXCTGL) APOORVA GONZALEZ ([id number]) 1950 F TRN Date Time Provider Department [...] Status:Closed by GRETCHEN DAVID MA on 09/13/[address] [facility] [address] BIOPSY RENALon 10-25-2019 CT BIOPSY RENAL Final Report DATE OF EXAM: Oct 25 2019 9:26AM [facility] 2020 - CT BIOPSY RENAL / PROCEDURE REASON: [...] administration of agent and ending when continuous [id number] time ends): Approximately 25 minutes Patient monitoring: [...] complicated by a small left perinephric hematoma. Production Shift Supervisor: [facility] Transcribe Date/Time: Oct 25 2019 10:19A Dictated by : JOSE ANTONIO ADAMS MD This examination was interpreted and the report reviewed and electronically signed by: JOSE ANTONIO ADAMS MD on Oct 25 2019 10:23AM EST Normal [facility] Otheron 10-25-2019 [facility] Pathology Miscellaneouson Pathology Miscellaneous Test performed a t [place] [address] NAME: APOORVA GONZALEZ REQUESTING: JOSE ANTONIO ADAMS MD DIAGNOSIS: Kidney: See complete report from [facility]. SPECIMEN: TISSUE FOR SEND-OUT, Medical Kidney EXTERNAL CONSULT, PATHOLOGIST (Electronic signature on file) Signed out: 11/02/2019 16:25 PRINTED: 11/02/2019 Page 1 of 1 Normal [facility] Comment on above: Performed By: #### M ISC #### [place] [address] Surgical Tissue Examon 10-24 Surgical Tissue Exam Test performed at [place] [address] NAME: APOORVA GONZALEZ REQUESTING: JOSE ANTONIO ADAMS MD COPY TO: [facility] FINAL DIAGNOSIS: LEFT KIDNEY, CORE BIOPSIES - TISSUE SUBMITTED DIRECTLY TO [facility] FOR FURTHER EVALUATION. PLEASE SEE THEIR [...] fixative, and glutaraldehyde and submitted directly to [facility] for further evaluation. EDS/sherry EXTERNAL CONSULT, PATHOLOGIST (Electronic signature on file) Signed out: 10/26/2019 08:26 PRINTED: 10/26/2019 Page 1 of 1 Normal [facility] Comment on above: Performed By: #### S URG #### [place] [address] Activated PTTon 10-03-2019 aPTT Coag (Bld) [Time] 27.1 s Normal 23.0-32.4 [facility] Comment on above: Result Comment: Unfr actionated [...] laboratory APTT reagent in use throughout the [facility]. Performed By: #### A PTT #### [facility] [address] [place] [id number] Hematologyon 10-03-2019 aPTT Coag (PPP) [Time] 27.1 s 23.0 - 32.4 sec [facility] INR Coag (PPP) [Relative time] 0.93 {INR} 0.90 - 1.30 [facility] PT Coag (PPP) [Time] 10.1 s 9.7 - 1 3.0 sec [facility] Hematocrit (Bld) [Volume fraction] 31.6 % Low 34.1 - 44.9 % [facility] Hemoglobin (Bld) [Mass/Vol] 9.9 g/dL Low 11.2 - 15.7 g/dL [facility] MCH (RBC) [Entitic mass] 28.9 pg 25.6 - 32.2 pg [facility] MCV (RBC) [Entitic vol] 92.1 fL 79.4 - 94.8 fl [facility] Platelets (Bld) [#/Vol] 502 thou/cmm High 182 - 369 thou/cmm [facility] RBC (Bld) [#/Vol] 3.43 mil/cmm Low 3.93 - 5.2 2 mil/cmm [facility] WBC (Bld) [#/Vol] 13.18 thou/cmm High 3.98 - 1 0.04 thou/cmm [facility] Hemogramon 10-03-2019 Erythrocyte distribution width (RBC) [Ratio] 13.5 % Normal 11.7-14.4 [facility] Comment on above: Performed By: #### C BC1 #### [facility] [address] [place], [place] [address] Hematocrit (Bld) [Volume fraction] 31.6 % Low 34.1-44.9 [facility] Comment on above: Performed By: #### C BC1 #### [facility] [address] [place], [place] [address] Hemoglobin (Bld) [Mass/Vol] 9.9 g/dL Low 11.2-15.7 [facility] Comment on above: Performed By: #### C BC1 #### [facility] [address] [place], [place] [address] MCH (RBC) [Entitic mass] 28.9 pg Normal 25.6-32.2 [facility] Comment on above: Performed By: #### C BC1 #### [facility] [address] [place] [address] MCHC (RBC) [Mass/Vol] 31.3 % Low 31.6-34.8 [facility] Comment on above: Performed By: #### C BC1 #### [facility] [address] [place] [address] MCV (RBC) [Entitic vol] 92.1 fL Normal 79.4-94.8 [facility] Comment on above: Performed By: #### C BC1 #### [facility] [address] [place] [address] Platelet mean volume (Bld) [Entitic vol] 10.8 fL Normal 9.4-12.3 [facility] Comment on above: Performed By: #### C BC1 #### [facility] [address] [place] [address] Platelets (Bld) [#/Vol] 502 thou/cmm High 182-369 [facility] Comment on above: Performed By: #### C BC1 #### [facility] [address] [place] [address] RBC (Bld) [#/Vol] 3.43 mil/cmm Low 3.93-5.22 [facility] Comment on above: Performed By: #### C BC1 #### [facility] [address] [place] [address] RDW SD 45.1 fl Normal 36.4-46.3 [facility] Comment on above: Performed By: #### C BC1 #### [facility] [address] [place] [address] WBC (Bld) [#/Vol] 13.18 thou/cmm High 3.98-10.04 [facility] Comment on above: Performed By: #### C BC1 #### [facility] [address] [place] [address] Otheron 10-03-2019 Erythrocyte distribution width (RBC) [Entitic vol] 45.1 fL 36.4 - 46.3 fl [facility] Erythrocyte distribution width (RBC) [Ratio] 13.5 % 11.7 - 14.4 % [facility] MCHC (RBC) [Mass/Vol] 31.3 % Low 31.6 - 34.8 % [facility] Platelet mean volume (Bld) [Entitic vol] 10.8 fL 9.4 - 12.3 fl [facility] Protimeon 10-03-2019 INR Coag (PPP) [Relative time] 0.93 {INR} Normal 0.90-1.30 [facility] Comment on above: Result Comment: Haylee min K Antagonist (VKA) Therapeutic Range: INR 2 to 3 (Target INR of 2.5) Note: For patients treated with VKA drugs, such as warfarin, the [place] 2012 Guideline recommends [...] 2.5 to 3.5 target INR of 3). Naveen GH, et al. Chest 2012; 141:7S-47S Joselyn RA, et al. [facility] 2017; 70: 252-289 Performed By: #### P T #### [place] [address] PT Coag (PPP) [Time] 10.1 s Normal 9.7-13.0 [facility] Comment on above: Performed By: #### P T #### [facility] [address] RETROPERITONEAL COMPLETE n 07-24-2019 Patient Name: APOORVA GONZALEZ ---Ultrasound--- Exam Date/Time 07/24/2019 15:50:07 EDT Exam US Retroperitoneal Complete Ordering Physician [facility] Accession Number [id number] CPT4 Codes 31769 () Reason For Exam stage 4 kid [...] R Transcribed Date and Time: 07/24/2019 3:25 [place], [place] Eric, [facility] Incoming Radiology Results From [facility] - 07/24/2019 3:50 PM EDT Patient Name: APOORVA GONZALEZ ---Ultrasound--- Exam Date/Time 07/24/2019 15:50:07 EDT Exam US Retroperitoneal Complete Ordering Physician CHRISTIANO GROVE Accession Number [id number] CPT4 Codes 83819 () Reason For Exam stage 4 kid [...] R Transcribed Date and Time: 07/24/2019 3:25 [place], [place] Vital Signs Date Time Vital Sign Value Performing Clinician Facility 12-28-2024 10:00-0400 Body temperature 98.71 [degF] Frankygon Natasha DO Work Phone: [facility] 12-28-2024 10:00-0400 Diastolic blood pressure 76 mm[Hg] Mejgon Natasha DO Work Phone: [facility] 12-28-2024 10:00-0400 Heart rate 91 /min jgon Natasha DO Work Phone: [facility] 12-28-2024 10:00-0400 Respiratory rate 14 /min Mejgon Natasha DO Work Phone: [facility] 12-28-2024 10:00-0400 SaO2% (BldA) [Mass fraction] 100 % Mejgon Natasha DO Work Phone: [facility] 12-28-2024 10:00-0400 Systolic blood pressure 162 mm[Hg] Mejgon Natasha DO Work Phone: [facility] 12-20-2024 17:50-0400 Body temperature 98.01 [degF] Mason Munson MD Work Phone: [facility] 12-20-2024 17:50-0400 Diastolic blood pressure 78 mm[Hg] Mason Munson MD Work Phone: [facility] 12-20-2024 17:50-0400 Heart rate 101 /min Mason Munson MD Work Phone: [facility] [employer] 12-20-2024 17:50-0400 Respiratory rate 16 /min Mason Munson MD Work Phone: [facility] [employer] 12-20-2024 17:50-0400 SaO2% (BldA) [Mass fraction] 98 % Mason Munson MD Work Phone: [facility] [employer] 12-20-2024 17:50-0400 Systolic blood pressure 182 mm[Hg] Mason Munson MD Work Phone: [facility] [employer] 12-11-2024 20:45-0400 SaO2% (BldA) [Mass fraction] 85.3 % Mason Munson MD Work Phone: [facility] [employer] 12-11-2024 10:14-0400 Body mass index (BMI) [Ratio] 19.61 kg/m2 Mason Munson MD Work Phone: [facility] [employer] 12-11-2024 10:14-0400 Body weight 52.75 kg Mason Munson MD Work Phone: [facility] [employer] 12-11-2024 06:46-0400 Body height 164 cm Mason Munson MD Work Phone: [facility] [employer] 12-06-2024 10:54-0400 Body height 162.6 cm Raffy Rojas MD Work Phone: [facility] [employer] 12-06-2024 10:54-0400 Body mass index (BMI) [Ratio] 17.68 kg/m2 Raffy Rojas MD Work Phone: [facility] [employer] 12-06-2024 10:54-0400 Body weight 46.72 kg Raffy Rojas MD Work Phone: [facility] [employer] 12-06-2024 10:54-0400 Heart rate 94 /min Raffy Rojas MD Work Phone: [facility] [employer] 12-06-2024 10:54-0400 Respiratory rate 18 /min Raffy Rojas MD Work Phone: [facility] [employer] 12-06-2024 10:54-0400 SaO2% (BldA) [Mass fraction] 98 % Raffy Rojas MD Work Phone: [facility] [employer] 11-27-2024 15:46-0400 Body height 162.6 cm Raffy Rojas MD Work Phone: [facility] [employer] 11-27-2024 15:46-0400 Body mass index (BMI) [Ratio] 17.68 kg/m2 Raffy Rojas MD Work Phone: [facility] [employer] 11-27-2024 15:46-0400 Body weight 46.72 kg Raffy Rojas MD Work Phone: [facility] [employer] 11-27-2024 15:46-0400 Heart rate 70 /min Raffy Rojas MD Work Phone: [facility] [employer] 11-27-2024 15:46-0400 Respiratory rate 18 /min Raffy Rojas MD Work Phone: [facility] [employer] 11-27-2024 15:46-0400 SaO2% (BldA) [Mass fraction] 97 % Raffy Rojas MD Work Phone: [facility] [employer] 11-22-2024 18:08-0400 Diastolic blood pressure 88 mm[Hg] Kev Warner MD Work Phone: [facility] [employer] 11-22-2024 18:08-0400 Heart rate 85 /min Kev Warner MD Work Phone: [facility] [employer] 11-22-2024 18:08-0400 Respiratory rate 20 /min Kev Warner MD Work Phone: [facility] [employer] 11-22-2024 18:08-0400 Systolic blood pressure 149 mm[Hg] Kev Warner MD Work Phone: [facility] [employer] 11-22-2024 15:57-0400 Body height 162.6 cm Kev Warner MD Work Phone: [facility] [employer] 11-22-2024 15:57-0400 Body mass index (BMI) [Ratio] 17.68 kg/m2 Kev Warner MD Work Phone: [facility] [employer] 11-22-2024 15:57-0400 Body temperature 97.39 [degF] Kev Warner MD Work Phone: [facility] [employer] 11-22-2024 15:57-0400 Body weight 46.72 kg Kev Warner MD Work Phone: [facility] [employer] 11-22-2024 15:57-0400 SaO2% (BldA) [Mass fraction] 100 % Kev Warner MD Work Phone: [facility] [employer] 11-15-2024 11:15-0400 Body temperature 98.1 [degF] CHAPARRO Moore MD Work Phone: [facility] [employer] 11-15-2024 11:15-0400 Diastolic blood pressure 73 mm[Hg] CHAPARRO Moore MD Work Phone: [facility] [employer] 11-15-2024 11:15-0400 Heart rate 61 /min CHAPARRO Moore MD Work Phone: [facility] [employer] 11-15-2024 11:15-0400 Respiratory rate 16 /min CHAPARRO Moore MD Work Phone: [facility] [employer] 11-15-2024 11:15-0400 SaO2% (BldA) [Mass fraction] 100 % CHAPARRO Moore MD Work Phone: [facility] [employer] 11-15-2024 11:15-0400 Systolic blood pressure 150 mm[Hg] CHAPARRO Moore MD Work Phone: [facility] [employer] 11-15-2024 04:48-0400 Body mass index (BMI) [Ratio] 18.76 kg/m2 CHAPARRO Moore MD Work Phone: [facility] [employer] 11-15-2024 04:48-0400 Body weight 49.58 kg CHAPARRO Moore MD Work Phone: [facility] [employer] 11-14-2024 06:25-0400 Body height 162.6 cm CHAPARRO Moore MD Work Phone: [facility] [employer] 11-11-2024 13:12-0400 Body temperature 97.59 [degF] Veronica Abebe MD Work Phone: [facility] [employer] 11-11-2024 13:12-0400 Diastolic blood pressure 80 mm[Hg] Veronica Abebe MD Work Phone: [facility] [employer] 11-11-2024 13:12-0400 Heart rate 87 /min Veronica Abebe MD Work Phone: [facility] [employer] 11-11-2024 13:12-0400 Respiratory rate 16 /min Veronica Abebe MD Work Phone: [facility] [employer] 11-11-2024 13:12-0400 SaO2% (BldA) [Mass fraction] 100 % Veronica Abebe MD Work Phone: [facility] [employer] 11-11-2024 13:12-0400 Systolic blood pressure 154 mm[Hg] Veronica Abebe MD Work Phone: [facility] [employer] 11-10-2024 06:00-0400 Body mass index (BMI) [Ratio] 20.13 kg/m2 Veronica Abebe MD Work Phone: [facility] [employer] 11-10-2024 06:00-0400 Body weight 53.2 kg Veronica Abebe MD Work Phone: [facility] [employer] 10-26-2024 14:38-0400 Body height 162.6 cm Veronica Abebe MD Work Phone: [facility] [employer] 09-06-2024 16:42-0400 Body temperature 100.2 [degF] Carine Mejia DO Work Phone: [facility] 09-06-2024 16:42-0400 Diastolic blood pressure 71 mm[Hg] Carine Mejia DO Work Phone: [facility] 09-06-2024 16:42-0400 Heart rate 110 /min Carine Mejia DO Work Phone: [facility] 09-06-2024 16:42-0400 Respiratory rate 16 /min Carine Mejia DO Work Phone: [facility] 09-06-2024 16:42-0400 SaO2% (BldA) [Mass fraction] 100 % Carine Mejia DO Work Phone: [facility] 09-06-2024 16:42-0400 Systolic blood pressure 157 mm[Hg] Carien Mejia DO Work Phone: [facility] 08-31-2024 01:34-0400 Body height 163 cm Carine Mejia DO Work Phone: [facility] 08-31-2024 01:34-0400 Body mass index (BMI) [Ratio] 19.5 kg/m2 Carine Mejia DO Work Phone: [facility] 08-31-2024 01:34-0400 Body weight 51.8 kg Carine Mejia DO Work Phone: [facility] 07-17-2024 21:10-0400 Body temperature 98.8 [degF] Rivas CidOptoNovagena DO [facility] 07-17-2024 20:32-0400 Diastolic blood pressure 73 mm[Hg] Rivas Sanchez DO Work [facility] 07-17-2024 20:32-0400 Heart rate 92 /min Rivas Sanchez DO Work Phone: [facility] 07-17-2024 20:32-0400 Respiratory rate 16 /min Rivas Pal-Meghana DO Work Phone: [facility] 07-17-2024 20:32-0400 SaO2% (BldA) [Mass fraction] 98 % Rivas Sanchez DO [facility] 07-17-2024 20:32-0400 Systolic blood pressure 127 mm[Hg] Rivas Pal-Meghana DO Work Phone: [facility] 07-17-2024 14:07-0400 Body mass index (BMI) [Ratio] 19.74 kg/m2 Rivas PalMeghana DO Work Phone: [facility] [employer] 07-17-2024 14:07-0400 Body weight 52.16 kg Rivas PalMeghana DO Work Phone: [facility] [employer] 06-29-2024 19:34-0400 Diastolic blood pressure 84 mm[Hg] Veronica Abebe MD Work Phone: [facility] [employer] 06-29-2024 19:34-0400 Heart rate 84 /min Veronica Abebe MD Work Phone: [facility] [employer] 06-29-2024 19:34-0400 Respiratory rate 18 /min Veronica Abebe MD Work Phone: [facility] [employer] 06-29-2024 19:34-0400 SaO2% (BldA) [Mass fraction] 100 % Veronica Abebe MD Work Phone: [facility] [employer] 06-29-2024 19:34-0400 Systolic blood pressure 166 mm[Hg] Veronica Abebe MD Work Phone: [facility] [employer] 06-29-2024 17:56-0400 Body temperature 97.7 [degF] Veronica Abebe MD Work Phone: [facility] [employer] 06-29-2024 06:01-0400 Body height 162.6 cm Veronica Abebe MD Work Phone: [facility] [employer] 06-29-2024 06:01-0400 Body mass index (BMI) [Ratio] 19.22 kg/m2 Veronica Abebe MD Work Phone: [facility] [employer] 06-29-2024 06:01-0400 Body weight 50.8 kg Veronica Abebe MD Work Phone: [facility] [employer] 06-09-2024 13:36-0500 Body height 162.6 cm Roxie Judit Work Phone: [facility] 06-09-2024 13:36-0500 Body mass index (BMI) [Ratio] 19.22 kg/m2 Roxierachael Spain Work [facility] 06-09-2024 13:36-0500 Body weight 50.8 kg Roxierachael Spain Work Phone: [facility] 03-03-2024 19:56-0500 Body temperature 97.5 [degF] Marcus Gombash DO Work Phone: [facility] 03-03-2024 19:56-0500 Diastolic blood pressure 81 mm[Hg] Marcus Gombash DO Work Phone: [facility] 03-03-2024 19:56-0500 Heart rate 91 /min Marcus Gombash DO Work Phone: [facility] 03-03-2024 19:56-0500 Respiratory rate 16 /min Marcus Gombash DO Work Phone: [facility] 03-03-2024 19:56-0500 SaO2% (BldA) [Mass fraction] 96 % Marcus Gombash DO Work Phone: [facility] 03-03-2024 19:56-0500 Systolic blood pressure 168 mm[Hg] Marcus Gombash DO Work Phone: [facility] 03-03-2024 04:14-0500 Body mass index (BMI) [Ratio] 18.09 kg/m2 Marcus Gombash DO Work Phone: [facility] 03-03-2024 04:14-0500 Body weight 47.81 kg Marcus Gombash DO Work Phone: [facility] 03-02-2024 09:56-0500 Body height 162.6 cm Marcus Gombash DO Work Phone: [facility] 02-20-2024 15:07-0500 Body temperature 98.29 [degF] Cassie Mace DO Work Phone: [facility] 02-20-2024 15:07-0500 Diastolic blood pressure 72 mm[Hg] Cassie Mace DO Work Phone: [facility] [employer] 02-20-2024 15:07-0500 Heart rate 87 /min Cassie Mace DO Work Phone: [facility] [employer] 02-20-2024 15:07-0500 Respiratory rate 16 /min Cassie Mace DO Work Phone: [facility] - [place] [employer] 02-20-2024 15:07-0500 SaO2% (BldA) [Mass fraction] 94 % Cassie Mace DO Work Phone: [facility] [employer] 02-20-2024 15:07-0500 Systolic blood pressure 151 mm[Hg] Cassie Mace DO Work Phone: [facility] [employer] 02-20-2024 00:00-0500 Body mass index (BMI) [Ratio] 18.37 kg/m2 Cassie Mace DO Work Phone: [facility] [place] [employer] 02-20-2024 00:00-0500 Body weight 48.53 kg Cassie Mace DO Work Phone: [facility] [employer] 02-19-2024 21:01-0500 Body height 162.6 cm Cassie Mace DO Work Phone: [facility] [employer] 02-12-2024 14:21-0500 Body temperature 97.7 [degF] Marcus Gombash DO Work Phone: [facility] [place] [employer] 02-12-2024 14:21-0500 Diastolic blood pressure 71 mm[Hg] Marcus Gombash DO Work Phone: [facility] [employer] 02-12-2024 14:21-0500 Heart rate 87 /min Marcus Gombash DO Work Phone: [facility] [employer] 02-12-2024 14:21-0500 Respiratory rate 14 /min Marcus Gombash DO Work Phone: [facility] [employer] 02-12-2024 14:21-0500 SaO2% (BldA) [Mass fraction] 96 % Marcus Golucitaash DO Work Phone: [facility] [employer] 02-12-2024 14:21-0500 Systolic blood pressure 153 mm[Hg] Marcus Golucitaash DO Work Phone: [facility] [employer] 01-25-2024 16:23-0400 Body temperature 97.9 [degF] Beatrizn Natasha DO Work Phone: [facility] [employer] 01-25-2024 16:23-0400 Diastolic blood pressure 77 mm[Hg] Mejgon Natasha DO Work Phone: [employer] 01-25-2024 16:23-0400 Heart rate 107 /min Mejgon Natasha DO Work Phone: [facility] [employer] 01-25-2024 16:23-0400 Respiratory rate 18 /min jgon Natasha DO Work Phone: [facility] [employer] 01-25-2024 16:23-0400 SaO2% (BldA) [Mass fraction] 99 % Mejgon Natasha DO Work Phone: [employer] 01-25-2024 16:23-0400 Systolic blood pressure 158 mm[Hg] Mejgon Natasha DO Work Phone: [facility] [employer] 01-25-2024 08:27-0400 Body height 162.6 cm jgon Natasha DO Work Phone: [facility] [employer] 01-25-2024 08:27-0400 Body mass index (BMI) [Ratio] 19.74 kg/m2 Mejgon Natasha DO Work Phone: [facility] 01-25-2024 08:27-0400 Body weight 52.16 kg Mejgon Natasha DO Work Phone: [facility] [employer] 08-09-2023 20:40-0400 Diastolic blood pressure 75 mm[Hg] Samuel Mudrakola DO Work Phone: [employer] 08-09-2023 20:40-0400 Heart rate 82 /min Samuel Mudrakola DO Work Phone: [facility] [employer] 08-09-2023 20:40-0400 Respiratory rate 18 /min Samuel Amatola DO Work Phone: [facility] [employer] 08-09-2023 20:40-0400 SaO2% (BldA) [Mass fraction] 100 % Samuel Amatola DO Work Phone: [facility] [employer] 08-09-2023 20:40-0400 Systolic blood pressure 147 mm[Hg] Samuel Amatola DO Work Phone: [facility] [employer] 08-09-2023 20:02-0400 Body temperature 97.59 [degF] Samuel Amatola DO Work Phone: [facility] [employer] 08-09-2023 15:43-0400 Body height 162.6 cm Samuel Amatola DO Work Phone: [facility] [employer] 08-09-2023 15:43-0400 Body mass index (BMI) [Ratio] 18.88 kg/m2 Samuel Velasquez DO Work Phone: [facility] [place] [employer] 08-09-2023 15:43-0400 Body weight 49.9 kg Samuel Amatola DO Work Phone: [facility] [place] [employer] 03-03-2023 08:32-0500 Body temperature 97.81 [degF] Alvarado Bonyo DO Work Phone: [facility] [employer] 03-03-2023 08:32-0500 Diastolic blood pressure 72 mm[Hg] Alvarado Bonyo DO Work Phone: [facility] [employer] 03-03-2023 08:32-0500 Heart rate 88 /min Alvarado Bonyo DO Work Phone: [facility] [employer] 03-03-2023 08:32-0500 Respiratory rate 18 /min Alvarado Bonyo DO Work Phone: [facility] [employer] 03-03-2023 08:32-0500 SaO2% (BldA) [Mass fraction] 96 % Alvarado Bonyo DO Work Phone: [facility] [employer] 03-03-2023 08:32-0500 Systolic blood pressure 143 mm[Hg] Alvarado Bonyo DO Work Phone: [facility] [employer] 01-12-2023 11:18-0400 Body height 162.6 cm Alvarado Bonyo DO Work Phone: [facility] [employer] 01-12-2023 11:18-0400 Body mass index (BMI) [Ratio] 19.74 kg/m2 Alvarado Bonyo DO Work Phone: [facility] [employer] 01-12-2023 11:18-0400 Body weight 52.16 kg Alvarado Bonyo DO Work Phone: [facility] [employer] 10-01-2022 12:05-0400 Body mass index (BMI) [Ratio] 19.57 kg/m2 Mak Hilario MD Work Phone: [facility] [employer] 10-01-2022 12:05-0400 Body temperature 97.7 [degF] Mak Hilario MD Work Phone: [facility] [place] [employer] 10-01-2022 12:05-0400 Body weight 51.71 kg Mak Hilario MD Work Phone: [facility] [place] [employer] 10-01-2022 12:05-0400 Diastolic blood pressure 75 mm[Hg] Mak Hilario MD Work Phone: [facility] [place] [employer] 10-01-2022 12:05-0400 Heart rate 81 /min Mak Hilario MD Work Phone: [facility] [place] [employer] 10-01-2022 12:05-0400 Respiratory rate 14 /min Mak Hilario MD Work Phone: [facility] [place] [employer] 10-01-2022 12:05-0400 SaO2% (BldA) [Mass fraction] 98 % Mak Hilario MD Work Phone: [facility] [place] [employer] 10-01-2022 12:05-0400 Systolic blood pressure 139 mm[Hg] Mak Hilario MD Work Phone: [facility] [place] [employer] 08-07-2022 14:00-0400 Diastolic blood pressure 65 mm[Hg] Raffy Rojas MD Work Phone: [facility] [place] [employer] 08-07-2022 14:00-0400 Heart rate 73 /min Raffy Rojas MD Work Phone: [facility] [employer] 08-07-2022 14:00-0400 Respiratory rate 11 /min Raffy Rojas MD Work Phone: [facility] [employer] 08-07-2022 14:00-0400 SaO2% (BldA) [Mass fraction] 100 % Raffy Rojas MD Work Phone: [facility] [employer] 08-07-2022 14:00-0400 Systolic blood pressure 108 mm[Hg] Rfafy Rojas MD Work Phone: [facility] [employer] 08-07-2022 13:30-0400 Body temperature 97.7 [degF] Raffy Rojas MD Work Phone: [facility] [employer] 08-07-2022 08:15-0400 Body height 162.6 cm Raffy Rojas MD Work Phone: [facility] [employer] 08-07-2022 08:15-0400 Body mass index (BMI) [Ratio] 18.88 kg/m2 Raffy Rojas MD Work Phone: [facility] [employer] 08-07-2022 08:15-0400 Body weight 49.9 kg Raffy Rojas MD Work Phone: [facility] [employer] 06-24-2022 09:35-0400 Body height 162.6 cm Raffy Rojas MD Work Phone: [facility] [employer] 06-24-2022 09:35-0400 Body mass index (BMI) [Ratio] 19.57 kg/m2 Raffy Rojas MD Work Phone: [facility] [employer] 06-24-2022 09:35-0400 Body weight 51.71 kg Raffy Rojas MD Work Phone: [facility] [employer] 06-24-2022 09:35-0400 Diastolic blood pressure 75 mm[Hg] Raffy Rojas MD Work Phone: [facility] 06-24-2022 09:35-0400 Heart rate 90 /min Raffy Rojas MD Work Phone: [facility] 06-24-2022 09:35-0400 Systolic blood pressure 130 mm[Hg] Raffy Rojas MD Work Phone: [facility] 10-25-2019 09:48-0400 BP Diastolic 90 mm[Hg] [facility] 10-25-2019 09:48-0400 BP Systolic 123 mm[Hg] [facility] 10-25-2019 09:48-0400 Pulse (Heart Rate) 71 /min [facility] abdiel 10-25-2019 09:48-0400 Pulse Oximetry 100 % [facility] 10-25-2019 09:48-0400 Respiratory Rate 16 /min [facility] 10-25-2019 07:35-0400 Body Temperature 97 [degF] [facility] 10-25-2019 07:35-0400 Body weight 57.61 kg [facility] 10-25-2019 07:35-0400 Height 162.6 cm [facility] Encounters Encounter Date Encounter Type Care Provider Facility [facility]: [facility] Start: 01-05-2025 ambulatory Randy FRIED Faci lity:[facility] Start: 12-28-2024 End: 12-28-2024 Emergency department patient visit ken Kaur Work Phone: [facility] ED Comment on above: Transient alteration of awareness (Primary Dx) Start: 12-25-2024 ambulatory [facility] ismael FRIED Facility:[facility] Start: 12-08-2024 End: 12-20-2024 Evaluation and management of inpatient Mason Munson MD Work Phone: [facility] 6W Start: 12-06-2024 End: 12-06-2024 Preprocedural examination done Raffy Rojas MD Work Phone: [facility] Start: 12-06-2024 End: 12-06-2024 Subsequent hospital visit by physician Raffy Rojas MD Work Phone: [address] [facility] Comment on above: ESRD (end stage bladimir l disease) on dialysis (HCC); Preop examination Start: 12-06-2024 End: 12-06-2024 ambulatory [facility] Start: 12-06-2024 End: 12-06-2024 Encounter for other preprocedural examination [facility] Start: 12-06-2024 End: 12-06-2024 Postop follow up visit related to original px Raffy Rojas MD Work Phone: [facility] [place] Comment on above: ESRD (end stage bladimir l disease) on dialysis (HCC) (Primary Dx) Start: 12-06-2024 End: 12-06-2024 ambulatory [facility] Start: 12-05-2024 [facility] Start: 11-30-2024 ambulatory [facility] O[facility] Facility:[facility] Start: 11-27-2024 End: 11-27-2024 ambulatory [facility] Start: 11-27-2024 End: 11-27-2024 Postop follow up visit related to original px Raffy Rojas MD Work Phone: [facility] Comment on above: ESRD (end stage bladimir l disease) on dialysis (HCC) (Primary Dx) Start: 11-22-2024 End: 11-22-2024 Emergency department patient visit Kev Warner MD Work Phone: [facility] ED Comment on above: Anemia of chronic di sease (Primary Dx) Start: 11-22-2024 [facility] Start: 11-16-2024 End: 11-16-2024 Orders Only Kellee Gonzalez RN [facility] [place] Comment on above: End stage congestive heart failure (HCC) (Primary Dx); ESRD (end stage renal disease) (HCC) Start: 11-12-2024 End: 11-15-2024 ambulatory FELIBERTO [facility] Start: 11-12-2024 End: 11-15-2024 Evaluation and management of inpatient J Ann Moore MD Work Phone: [facility] Cardiac Vascular Progressive Care Unit PCC 1C Comment on above: Wound dehiscence (Pr imary Dx); Anemia due to other cause, not classified; End stage congestive heart failure (HCC); Seizures (HCC); Pressure ulcer of left buttock, stage 3 (HCC) Start: 10-22-2024 End: 11-11-2024 Evaluation and management of inpatient Veronica Abebe MD Work Phone: [facility] 6W Start: 09-13-2024 End: 10-12-2024 Evaluation and management of inpatient [facility] Start: 08-30-2024 End: 09-06-2024 Evaluation and management of inpatient Carine Mejia DO Work Phone: [facility] [place] [facility] Comment on above: Hematoma (Primary Dx ) Start: 08-26-2024 End: 08-30-2024 Evaluation and management of inpatient BICAKODAK VERA BICAKODAK DO~[id number] [facility] Start: 08-14-2024 End: 08-24-2024 Evaluation and management of inpatient BICAKODAK VERA BICAKODAK DO~[id number] [facility] Start: 07-17-2024 End: 07-17-2024 Emergency department patient visit Rivas Sanchez DO Work Phone: [facility] EMERGENCY DEPT Comment on above: Adverse effect of dr sue, initial encounter (Primary Dx) Start: 06-29-2024 End: 06-29-2024 Emergency department patient visit Veronica Abebe MD Work Phone: [facility] EMERGENCY DEPT Comment on above: Myoclonus (Primary D x); Fall, initial encounter; Hyperkalemia Start: 06-09-2024 End: 06-09-2024 Subsequent hospital visit by physician Roxie Spain Work Phone: [facility] Comment on above: Encounter for screen ing mammogram for malignant neoplasm of breast Start: 06-09-2024 End: 06-09-2024 ambulatory ROXIE SPAIN [facility] Start: 05-23-2024 End: 05-23-2024 Emergency department patient visit RONDA CLAIRE~[id number] [facility] Start: 03-02-2024 End: 03-03-2024 ambulatory MAGALYS CAN [facility] Start: 03-02-2024 End: 03-03-2024 Emergency department patient visit Marcus Ragland DO Work Phone: [facility] Cardiac Progressive Care Unit PCU 5W Comment on above: Shortness of breath (Primary Dx); Acute pulmonary edema (HCC); Hyperkalemia Start: 02-19-2024 End: 02-20-2024 Evaluation and management of inpatient Cassie Mace DO Work Phone: [facility] Cardiac Progressive Care Unit PCU 5W Comment on above: Pulmonary edema, acu te (HCC) (Primary Dx) Start: 02-12-2024 End: 02-12-2024 Emergency department patient visit Marcus Ragland DO Work Phone: [facility] EMERGENCY DEPT Comment on above: Hypertension, unspec ified type (Primary Dx) Start: 01-19-2024 End: 01-25-2024 Evaluation and management of inpatient Brown Kaur DO Work Phone: [facility] 6W Comment on above: Gastrointestinal hem orrhage, unspecified gastrointestinal hemorrhage type (Primary Dx); Anemia, unspecified type Start: 08-09-2023 End: 08-09-2023 Emergency department patient visit Samuel Collinsanabella DO Work Phone: [facility] EMERGENCY DEPT Comment on above: Hyperkalemia (Primar y Dx) Start: 06-25-2023 End: 09-24-2023 Transcribe Orders Radha Meza MD Work Phone: [facility] Central Scheduling Comment on above: End stage renal dise ase (HCC) (Primary Dx) Start: 03-03-2023 End: 03-03-2023 Emergency department patient visit Christiano Perfecto DO Work Phone: [facility] EMERGENCY DEPT Comment on above: ESRD on hemodialysis (CMS/HCC) (HCC) (Primary Dx) Start: 03-03-2023 End: 03-03-2023 Subsequent hospital visit by physician Nandini Ecg [facility]Invasive [facility] Comment on above: Arrived Start: 01-12-2023 End: 01-12-2023 Subsequent hospital visit by physician Christiano Grove DO Work Phone: [facility] Comment on above: Encounter for screen ing mammogram for malignant neoplasm of breast Start: 10-01-2022 Telephone encounter Katherin Salinas RN [facility] Special Procedures Start: 10-01-2022 End: 10-01-2022 Emergency department patient visit Mak Hilario MD Work Phone: [facility] EMERGENCY DEPT Comment on above: Hematoma (Primary Dx ); Bleeding from wound Start: 09-30-2022 End: 09-30-2022 Evaluation and management of inpatient Radha Meza MD Work Phone: [facility] Special Procedures Comment on above: End stage renal dise ase (HCC) Start: 09-28-2022 Transcribe Orders Radha steven MD Work Phone: [facility] Comment on above: End stage renal dise ase (HCC) (Primary Dx) Start: 08-07-2022 End: 08-07-2022 Subsequent hospital visit by physician Raffy Rojas MD Work Phone: [facility] MAIN OR Comment on above: S/P arteriovenous (A V) graft placement (Primary Dx) Start: 07-17-2022 ambulatory Kailyn Hodgson 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 ROOM 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 - 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 Work Phone: [facility] Start: 07-17-2022 End: 07-17-2022 Subsequent hospital visit by physician Raffy Rojas MD Work Phone: [facility] MAIN OR Start: 07-10-2022 Telephone encounter Maria R perez MD Work Phone: [facility] Internal Med Start: 03-29-2023 Telephone encounter Raffy smith MD Work Phone: [facility] Comment on above: Surgery Scheduling Start: 06-24-2022 End: 06-24-2022 Office outpatient new 45 minutes Raffy Rojas MD Work Phone: [facility] Comment on above: ESRD (end stage bladimir l disease) (HCC) (Primary Dx) Start: 06-03-2022 ambulatory CARLOS MANUEL WANG Facility: [facility] Start: 06-03-2022 End: 06-03-2022 Subsequent hospital visit by physician Us Lugo 1 [facility] Comment on above: End stage renal dise ase [N18.6] Start: 10-25-2019 End: 10-25-2019 Subsequent hospital visit by physician Jose Antonio Adams Work Phone: [facility] INTERVENTIONAL RADIOLOGY Comment on above: Chronic kidney [...] Glucose quantitative blood xcpt reagent strip Brown Kaur DO Work Phone: Start: 12-20-2024 Glucose quantitative [...] Start: 12-19-2024 Comprehensive metabo lic panel Leticia Rhodesire DO Work Phone: Start: 12-18-2024 Blood count hematocrit Kev Urias MD Work Phone: Start: 12-18-2024 End: 12-18-2024 Mri brain brain stem w/o contrast material Leticia Rhodesire DO Work Phone: Start: 12-18-2024 Blood count hematocrit Kev Urias MD Work Phone: Start: 12-18-2024 Glucose quantitative blood xcpt reagent strip Leticia Rhodesire DO Work Phone: Start: 12-18-2024 Comprehensive metabo lic panel Leticia Rhodesire DO Work Phone: Start: 12-18-2024 Glucose quantitative blood xcpt reagent strip Leticia Rhodesire DO Work Phone: Start: 12-17-2024 Blood count hematocrit Kev Urias MD Work Phone: Start: 12-17-2024 Glucose quantitative blood xcpt reagent strip Leticia Rhodesire DO Work Phone: Start: 12-17-2024 Compatibility each u nit electronic Leticia Rhodesire DO Work Phone: Start: 12-17-2024 End: 12-17-2024 Comprehensive metabolic panel Leticia Estevezntire DO Work Phone: Start: 12-17-2024 Blood count complete automated Leticia Estevezntire DO Work Phone: Start: 12-16-2024 Comprehensive metabo lic panel Leticia Estevezntire DO Work Phone: Start: 12-16-2024 Ct abdomen & pelvis w/o contrast material Leticia Estevezntire DO Work Phone: Start: 12-16-2024 Drug screen quantita tive vancomycin Radha Kuzmin DO Work Phone: Start: 12-16-2024 Comprehensive metabo lic panel Leticia Rhodesire DO Work Phone: Start: 12-15-2024 Glucose quantitative blood xcpt reagent strip Leticai Estevezntire DO Work Phone: Start: 12-15-2024 End: 12-15-2024 Drug screen quantitative vancomycin Radha Kevin DO Work Phone: Start: 12-15-2024 End: 12-15-2024 Comprehensive metabolic panel Leticia Rhodesire DO Work Phone: Start: 12-14-2024 Glucose quantitative blood xcpt reagent strip Leticia Rhodesire DO Work Phone: Start: 12-14-2024 Glucose quantitative blood xcpt reagent strip Leticia Estevezntire DO Work Phone: Start: 12-14-2024 Glucose quantitative blood xcpt reagent strip Leticia Estevezntire DO Work Phone: Start: 12-14-2024 Antibody screen LOLI VIEIRA Comment on above: Performed By: #### L [id number] ####Conservation Coordinator: PHILLY FRANCO ([phone])[facility] ([address] Start: 12-14-2024 Blood typing serologic abo Ramonita Garnett NP Start: 12-14-2024 End: 12-14-2024 Comprehensive metabolic panel Leticia Estevezntire DO Work Phone: Start: 12-14-2024 Blood count complete automated Leticia Rhodesire DO Work Phone: Start: 12-13-2024 Glucose quantitative blood xcpt reagent strip Leticia Estevezntire DO Work Phone: Start: 12-13-2024 Radex shoulder compl ete minimum 2 views Ramonita Garnett [employer] Start: 12-13-2024 Glucose quantitative blood xcpt reagent strip Leticia Estevezntire DO Work Phone: Start: 12-13-2024 End: 12-13-2024 Glucose quantitative blood xcpt reagent strip Leticia Rhodesire DO Work Phone: Start: 12-13-2024 Basic metabolic pane l calcium total Ramonita Amanda Mariola [employer] Start: 12-13-2024 Drug screen quantita tive vancomycin Leticia Rhodesire DO Work Phone: Start: 12-12-2024 Ct head/brain w/o co ntrast material Ramonita Garnett [employer] Start: 12-12-2024 End: 12-12-2024 Glucose quantitative blood xcpt reagent strip Leticia Rhodesire DO Work Phone: Start: 12-12-2024 Glucose quantitative blood xcpt reagent strip Leticia Leonardo DO Work Phone: Start: 12-12-2024 Radiologic exam ches t single view Ramonita Amanda Mariola [employer] Start: 12-12-2024 Radiologic exam abdo men 1 view Ramonita Garcialong [employer] Start: 12-12-2024 Bacteria identified in Blood by Culture Radha Kuzmin DO Work Phone: Start: 12-12-2024 Comprehensive metabo lic panel Andrea Blas MD Work Phone: Start: 12-11-2024 Ct head/brain w/o co ntrast material Radha Kuzmin DO Work Phone: Start: 12-11-2024 Assay of lactate Radha K uzmin DO Work Phone: Start: 12-11-2024 Blood gases any comb ination ph pco2 po2 co2 hco3 Radha Kuzmin DO Work Phone: Start: 12-11-2024 Ecg routine ecg w/le ast 12 lds trcg only w/o i&r Radha Kuzmin DO Work Phone: Start: 12-11-2024 Glucose quantitative blood xcpt reagent strip Radha Kuzmin DO Work Phone: Start: 12-11-2024 Comprehensive metabo lic panel Andrea Blas MD Work Phone: Start: 12-10-2024 Comprehensive metabo lic panel John Shepherd DO Work Phone: Start: 12-09-2024 Renal function panel Jaquan Kevin DO Work Phone: Start: 12-09-2024 Radex hip unilateral with pelvis 2-3 views John Shepherd DO Work Phone: Start: 12-09-2024 Compatibility each u nit electronic Angelica DO Work Phone: Start: 12-09-2024 End: 12-09-2024 TRANSFUSE RED BLOOD CELLS Angelica D O Work Phone: Start: 12-08-2024 Antibody screen LOLI VIEIRA Comment on above: Performed By: #### L [id number] ####Conservation Coordinator: PHILLY FRANCO ([phone])[facility] BLOOD [facility] ([facility])[address] [place] [address] Start: 12-08-2024 Blood typing serologic abo Angelica DO Work Phone: Start: 12-08-2024 Comprehensive metabo lic panel Angelica DO Work Phone: Start: 12-08-2024 Ct cervical spine w/ o contrast material Angelica DO Work Phone: Start: 12-08-2024 Ct head/brain w/o co ntrast material Angelica DO Work Phone: Start: 12-06-2024 Duplex scan artl inf l&manolo o/f hemo compl bi std Raffy Rojas MD Work Phone: Start: 12-06-2024 Follow-up visit LOLI VIEIRA Start: 11-27-2024 Follow-up visit OLLI VIEIRA Start: 11-22-2024 Antibody screen LOLI VIEIRA Comment on above: Performed By: #### L [id number] ####Conservation Coordinator: DEANN MCKEE ([phone])[facility] BLOOD [facility] ([facility])[address] Start: 11-22-2024 Basic metabolic pane l calcium total Kev Warner MD Work Phone: Start: 11-22-2024 Blood typing serologic abo eKv Warner MD Work Phone: Start: 11-13-2024 Blood count hematocrit Kailyn Juárez TOOL ROOM ATTENDANT - 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 Work Phone: Start: 11-13-2024 Glucose quantitative blood xcpt reagent strip Edson Graham MD Work Phone: Start: 11-13-2024 Glucose quantitative blood xcpt reagent strip Edson Graham MD Work Phone: Start: 11-13-2024 Basic metabolic pane l calcium total Jamie Camarena DO Work Phone: Start: 11-12-2024 End: 11-12-2024 Basic metabolic panel calcium total J Ann Moore MD Work Phone: Start: 11-12-2024 Manual differential performed [Presence] in Blood J Ann Moore MD Work Phone: Start: 11-11-2024 Antibody screen LOLI VIEIRA Comment on above: Performed By: #### L [id number] ####Conservation Coordinator: PHILLY FRANCO ([phone])[facility] ([facility])[address] [place] [address] Start: 11-11-2024 Basic metabolic pane l calcium total Candy Baiko DO Work Phone: Start: 11-11-2024 Blood typing serologic abo Francisco Javier Somers MD Work Phone: Start: 11-10-2024 Basic metabolic pane l calcium total Candy Baiko DO Work Phone: Start: 11-09-2024 Blood count hematocrit Romain Meadows DRYING CAN WORKER Work Phone: Start: 11-09-2024 Compatibility each u nit electronic Romain Meadows [employer]YING [employer] WORKER Work Phone: Start: 11-09-2024 End: 11-09-2024 TRANSFUSE RED BLOOD CELLS Romain Meadows [employer]YING CAN WORKER Work Phone: Start: 11-09-2024 Antibody screen LOLI VIEIRA Comment on above: Performed By: #### L [id number] ####Conservation Coordinator: PHILLY FRANCO ([phone])[facility] ([facility])[address] [place] [address] Start: 11-09-2024 Basic metabolic pane l calcium total Candy Baiko DO Work Phone: Start: 11-09-2024 Blood typing serologic abo Francisco Javier Somers MD Work Phone: Start: 11-09-2024 Compatibility each u nit electronic Raffy Rojas MD Work Phone: Start: 11-08-2024 Glucose quantitative blood xcpt reagent strip Gerard Lilliana DO Work Phone: Start: 11-08-2024 Basic metabolic pane l calcium total Candy Baiko DO Work Phone: Start: 11-07-2024 Basic metabolic pane l calcium total Candy Baiko DO Work Phone: Start: 11-06-2024 Basic metabolic pane l calcium total Candy Baiko DO Work Phone: Start: 11-05-2024 Blood count hematocrit Raffy Rojas MD Work Phone: Start: 11-05-2024 End: 11-05-2024 TRANSFUSE RED BLOOD CELLS Raffy Rojas MD Work Phone: Start: 11-05-2024 End: 11-05-2024 REVISION OR REPAIR, AV FISTULA Raffy Rojas MD Work Phone: Start: 11-05-2024 Compatibility each u nit electronic Romain Meadows DRYING CAN WORKER Work Phone: Start: 11-05-2024 End: 11-05-2024 TRANSFUSE RED BLOOD CELLS Romain Meadows DRYING CAN WORKER Work Phone: Start: 11-05-2024 Blood count hematocrit Romain Meadows [employer]YING CAN WORKER Work Phone: Start: 11-05-2024 Basic metabolic pane l calcium total Candy Baiko DO Work Phone: Start: 11-05-2024 Blood typing serologic abo Francisco Javier Somers MD Work Phone: Start: 11-05-2024 Compatibility each u nit electronic Candy Denis DO Work Phone: Start: 11-04-2024 Glucose quantitative blood xcpt reagent strip Candy Donaldsonko DO Work Phone: Start: 11-04-2024 Blood count complete auto&auto difrntl wbc Candy Donaldsonko DO Work Phone: Start: 11-04-2024 Glucose quantitative blood xcpt reagent strip Candy Donaldsonko DO Work Phone: Start: 11-03-2024 Glucose quantitative blood xcpt reagent strip Candy Donaldsonko DO Work Phone: Start: 11-03-2024 Blood count hematocrit Candy Denis DO Work Phone: Start: 11-03-2024 Glucose quantitative blood xcpt reagent strip Candy Donaldsonko DO Work Phone: Start: 11-03-2024 Compatibility each u nit electronic Luther Robin MD Work Phone: Start: 11-03-2024 End: 11-03-2024 TRANSFUSE RED BLOOD CELLS Candy Denis DO Work Phone: Start: 11-03-2024 End: 11-03-2024 Basic metabolic panel calcium total Candy Denis DO Work Phone: Start: 11-03-2024 Glucose quantitative blood xcpt reagent strip Candy Anikako DO Work Phone: Start: 11-02-2024 Glucose quantitative blood xcpt reagent strip Candy Donaldsonko DO Work Phone: Start: 11-02-2024 Glucose quantitative blood xcpt reagent strip Candy Donaldsonko DO Work Phone: Start: 11-02-2024 Blood count hematocrit Luther Robin MD Work Phone: Start: 11-02-2024 Glucose quantitative blood xcpt reagent strip Candy Denis [employer] Work Phone: Start: 11-02-2024 End: 11-02-2024 TRANSFUSE RED BLOOD CELLS Luther Robin MD Work Phone: Start: 11-02-2024 Basic metabolic pane l calcium total Francisco Javier Somers MD Work Phone: Start: 11-02-2024 AEROBIC AND ANAEROBI C CULTURE WITH STAIN Raffy Rojas MD Work Phone: Start: 11-02-2024 Culture bacterial an y source anaerobic iso&id Raffy Rojas MD Work Phone: Start: 11-02-2024 AEROBIC AND ANAEROBI C CULTURE WITH STAIN Raffy Rojas MD Work Phone: Start: 11-02-2024 Culture bacterial an y source anaerobic iso&id Raffy Rojas MD Work Phone: Start: 11-02-2024 End: 11-02-2024 Excision infected graft extremity Raffy Rojas MD Work Phone: Start: 11-02-2024 Glucose quantitative blood xcpt reagent strip Candy Denis [employer] Work Phone: Start: 11-02-2024 Basic metabolic pane l calcium total Ana Boyce TOOL ROOM ATTENDANT - 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 Work Phone: Start: 11-01-2024 Glucose quantitative blood xcpt reagent strip Candy Denis [employer] Work Phone: Start: 11-01-2024 Glucose quantitative blood [...] strip Candy Donaldsonko DO Work Phone: Start: 11-01-2024 Duplex scan hemodial ysis access Naman Yeboah MD Work Phone: Start: 11-01-2024 Glucose quantitative blood xcpt reagent strip Candy Donaldsonko DO Work Phone: Start: 11-01-2024 Glucose quantitative blood xcpt reagent strip Veronica Fostergt DO Work Phone: Start: 11-01-2024 Basic metabolic pane l calcium total Ana M Boyce TOOL ROOM ATTENDANT - 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 Work Phone: Start: 11-01-2024 Manual Differential panel - Blood Ana Adelfo Austen TOOL ROOM ATTENDANT - 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 Work Phone: Start: 11-01-2024 Glucose quantitative blood xcpt reagent strip Veronica Fostergt DO Work Phone: Start: 10-31-2024 Glucose quantitative blood xcpt reagent strip Veronica Vogt DO Work Phone: Start: 10-31-2024 Glucose quantitative blood xcpt reagent strip Veronica Vogt DO Work Phone: Start: 10-31-2024 Glucose quantitative blood xcpt reagent strip Veronica Vogt DO Work Phone: Start: 10-31-2024 Glucose quantitative blood xcpt reagent strip Isai Guillen MD Work Phone: Start: 10-31-2024 Basic metabolic pane l calcium total Ana M Austen TOOL ROOM ATTENDANT - 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 Work Phone: Start: 10-31-2024 Manual Differential panel - Blood Ana Boyce TOOL ROOM ATTENDANT - 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 Work Phone: Start: 10-31-2024 Glucose quantitative blood [...] Basic metabolic panel calcium total Ana M Boyce TOOL ROOM ATTENDANT - 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 Work Phone: Start: 10-30-2024 Manual Differential panel - Blood Ana Adelfo Boyce TOOL ROOM ATTENDANT - 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 Work Phone: Start: 10-29-2024 Glucose quantitative blood xcpt reagent strip Isai Guillen MD Work Phone: Start: 10-29-2024 Glucose quantitative blood xcpt reagent strip Isai Guillen MD Work Phone: Start: 10-29-2024 Glucose quantitative blood xcpt reagent strip Isai Guillen MD Work Phone: Start: 10-29-2024 Basic metabolic pane l calcium total Ana M Boyce TOOL ROOM ATTENDANT - 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 Work Phone: Start: 10-29-2024 Manual Differential panel - Blood Ana Adelfo Donaldsonrd TOOL ROOM ATTENDANT - 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 Work Phone: Start: 10-29-2024 Glucose quantitative blood [...] 10-28-2024 Basic metabolic panel calcium total Ana M Boyce TOOL ROOM ATTENDANT - 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 Work Phone: Start: 10-28-2024 Manual Differential panel - Blood Ana Donaldsonrd TOOL ROOM ATTENDANT - 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 Work Phone: Start: 10-28-2024 Glucose quantitative blood xcpt reagent strip Isai Guillen MD Work Phone: Start: 10-27-2024 Glucose quantitative blood xcpt reagent strip Isai Guillen MD Work Phone: Start: 10-27-2024 Glucose quantitative blood xcpt reagent strip Isai Guillen MD Work Phone: Start: 10-27-2024 Blood count hematocrit Ana Donaldsonrd TOOL ROOM ATTENDANT - 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 Work Phone: Start: 10-27-2024 Compatibility each u nit electronic Ana Emanuel Austen TOOL ROOM ATTENDANT - 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 Work Phone: Start: 10-27-2024 End: 10-27-2024 TRANSFUSE RED BLOOD CELLS Ana Donaldsonmark cramer TOOL ROOM ATTENDANT - 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 Work Phone: Start: 10-27-2024 Blood typing serologic abo Ana Emanuel Austen TOOL ROOM ATTENDANT - 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 Work Phone: Start: 10-27-2024 Glucose quantitative blood xcpt reagent strip Isai Guillen MD Work Phone: Start: 10-27-2024 Basic metabolic pane l calcium total Ana Emanuel Austen TOOL ROOM ATTENDANT - 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 Work Phone: Start: 10-27-2024 Manual Differential panel - Blood Ana Donaldsonrd TOOL ROOM ATTENDANT - 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 Work Phone: Start: 10-27-2024 Glucose quantitative blood xcpt reagent strip Isai Guillen MD Work Phone: Start: 10-26-2024 End: 10-26-2024 Basic metabolic panel calcium total Kaylin Thomas DO Work Phone: Start: 10-26-2024 Drug screen quantita tive vancomycin Loni Zambrano MD Work Phone: Start: 10-26-2024 Manual differential performed [Presence] in Blood Kaylin Thomas DO Work Phone: Start: 10-25-2024 Glucose quantitative blood xcpt reagent strip Isai Guillen MD Work Phone: Start: 10-25-2024 Glucose quantitative blood xcpt reagent strip Kaylin Thomas DO Work Phone: Start: 10-25-2024 Glucose quantitative blood xcpt reagent strip Kaylin Thomas DO Work Phone: Start: 10-25-2024 Glucose quantitative blood xcpt reagent strip Kaylin Thomas DO Work Phone: Start: 10-25-2024 Basic metabolic pane l calcium total Kaylin Thomas DO Work Phone: Start: 10-25-2024 Manual differential performed [Presence] in Blood Kaylin Thomas DO Work Phone: Start: 10-25-2024 Glucose quantitative blood xcpt reagent strip Kaylin Thomas DO Work Phone: Start: 10-24-2024 Drug screen [...] 10-24-2024 TRANSFUSE RED BLOOD CELLS Kaylin Thomas [employer] Work Phone: Start: 10-24-2024 End: 10-24-2024 Comprehensive metabolic panel Leandra Barrera PA-C Work Phone: Start: 10-24-2024 Manual differential performed [Presence] in Blood Leandra Barrera PA-C Work Phone: Start: 10-23-2024 Drug screen quantita [...] Start: 10-22-2024 Assay of troponin quantitative Tuan Montoya DO Work Phone: Start: 10-22-2024 [...] Intermittent, Less than 6 Hours Per Day YONY BHAKTA DO~[id number] Start: 08-20-2024 Transfusion of Nonau tologous Red Blood Cells into Peripheral Vein, Percutaneous Approach YONY SILVERIODAK DO~[id number] Start: 08-17-2024 Extraction of Right Hip Muscle, Open Approach JEAN CLAUDEDAWill SILVERIODAK DO~[id number] Start: 08-15-2024 Insertion of Infusio n Device into Superior Vena Cava, Percutaneous Approach JEAN CLAUDEDAK JUAN R BICPRASHANTDAK DO~[id number] Start: 08-15-2024 Performance of Urina ry Filtration, Intermittent, Less than 6 Hours Per Day BICPRASHANTDAWill SILVERIODAWill DO~[id number] Start: 08-15-2024 Respiratory Ventilat ion, 24-96 Consecutive Hours BICMOOSE BHAKTA DO~[id number] Start: 08-14-2024 Performance of Cardi ac Output, Single, Manual YONY BAHKTA DO~[id number] Start: 07-17-2024 Assay of troponin quantitative Victor [...] Escamilla PA-C Work Phone: Start: 06-09-2024 End: 03-07-2025 Screening digital breast tomosynthesis bi Roxie Judit Work Phone: Start: 03-03-2024 Glucose quantitative blood xcpt reagent strip Magalys aCn MD Work Phone: Start: 03-03-2024 Glucose quantitative [...] Phone: Start: 02-20-2024 Comprehensive metabo lic panel Radha Kevin DO Work Phone: Start: 02-19-2024 Iaadiadoo not otherw ise specified Radha Kevin DO Work Phone: Start: 02-19-2024 Comprehensive metabo lic panel Radha Kevin DO Work Phone: Start: 02-19-2024 Assay of troponin quantitative Radha Kevin DO Work Phone: Start: 02-19-2024 Smr prim src gram/gi emsa stain bct fungi/cell Radha Kevin DO Work Phone: Start: 02-19-2024 Bacteria identified in Blood by Culture Radha Kevin DO Work Phone: Start: 02-19-2024 Assay of lactate Radha goodman DO Work Phone: Start: 02-19-2024 Respiratory pathogen [...] flx dx w/collj spec when pfrmd Sayed S Kalina DENG Work Phone: Start: 01-25-2024 Colonoscopy Brown david DO Work Phone: Start: 01-25-2024 Basic metabolic pane l calcium total Mounika Leslee Connell DO Work Phone: Start: 01-24-2024 Guidance for emboliz ation of Vessels Leticia Collier MD Work Phone: Start: 01-24-2024 Blood count hematocrit Leticia Collier MD Work Phone: Start: 01-24-2024 Acute gastrointestin al blood loss imaging Mary AdelfoCurtis Martinez TOOL ROOM ATTENDANT - 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 Work Phone: Start: 01-24-2024 Blood count hematocrit Jessica Murphy DO Work Phone: Start: 01-24-2024 RBC leukocytes reduced Jessica Murphy DO Work Phone: Start: 01-24-2024 End: 01-24-2024 TRANSFUSE RED BLOOD CELLS Jessica Roz lopez DO Work Phone: Start: 01-24-2024 Blood typing serologic abo Jessica Murphy DO Work Phone: Start: 01-24-2024 Basic metabolic pane l calcium total Mounika Leslee Dasilvanyder DO Work Phone: Start: 01-23-2024 Glucose quantitative blood xcpt reagent strip Ronald Schneider DO Work Phone: Start: 01-23-2024 Basic metabolic pane l calcium total Mounika Leslee Reaakashnyder DO Work Phone: Start: 01-22-2024 Basic metabolic pane l calcium total Mounika Leslee Reamsnyder DO Work Phone: Start: 01-22-2024 Hepatitis b surf ant ibody hbsab Sean Castaneda MD Work Phone: Start: 01-22-2024 Iaad ia hepatitis b surface antigen Sean Castaneda MD Work Phone: Start: 01-21-2024 Blood count hematocrit Flaco Rivera DO Work Phone: Start: 01-21-2024 Compatibility each u nit electronic Flaco Rivera DO Work Phone: Start: 01-21-2024 End: 01-21-2024 TRANSFUSE RED BLOOD CELLS Flaco Rivera DO Work Phone: Start: 01-21-2024 End: 01-21-2024 Basic metabolic panel calcium total Jessica Murphy DO Work Phone: Start: 01-20-2024 Blood count hematocrit Khloe A Dylan DO Work Phone: Start: 01-20-2024 Blood count hematocrit Korey Huang MD Work Phone: Start: 01-20-2024 Blood count hematocrit Korey Huang MD Work Phone: Start: 01-20-2024 Radex forearm 2 views C armando Huang MD Work Phone: Start: 01-20-2024 Basic metabolic pane l calcium total Jessicayovana Murphy DO Work Phone: Start: 01-19-2024 Blood count hematocrit Jessica Murphy DO Work Phone: Start: 01-19-2024 RFA Celiac artery Vi ews W contrast IA Jessica Roz Murphy DO Work Phone: Start: 01-19-2024 Compatibility each u nit electronic Mejgon Z Natasha DO Work Phone: Start: 01-19-2024 End: 01-19-2024 TRANSFUSE RED BLOOD CELLS Mejgon Z Natasha DO Work Phone: Start: 01-19-2024 End: 01-19-2024 TRANSFUSE RED BLOOD CELLS Brown Kaur DO Work Phone: Start: 01-19-2024 Ct angio abd&plvis c ntrst mtrl w/wo cntrst img Brown Kaur DO Work Phone: Start: 01-19-2024 Ecg routine ecg w/le ast 12 lds trcg only w/o i&r Brown Kaur DO Work Phone: Start: 01-19-2024 Blood typing serologic abo Brown Kaur DO Work Phone: Start: 01-19-2024 End: 01-19-2024 Comprehensive metabolic panel Brown Kaur DO Work Phone: Start: 08-09-2023 Renal function panel Andrew Sánchez TOOL ROOM ATTENDANT - 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 Work Phone: Start: 08-09-2023 Ecg routine ecg w/le ast 12 lds trcg only w/o i&r Samuel Mudrakola DO Work Phone: Start: 03-03-2023 Basic metabolic pane l calcium total Balta Wang MD Work Phone: Start: 03-03-2023 Ecg routine ecg w/le ast 12 lds trcg only w/o i&r Balta Wang MD Work Phone: Start: 01-12-2023 End: 01-12-2023 Screening digital breast tomosynthesis bi Alvarado S Bonyo DO Work Phone: Start: 10-01-2022 Radiologic exam ches t single view Mak Hilario MD Work Phone: Start: 09-30-2022 RF Guidance for alma bhaskar of tunneled CV catheter Radha Meza MD Work Phone: Start: 08-07-2022 Potassium serum plas ma/whole blood Otilio Sánchez DO Work Phone: Start: 02-22-2022 Lipid 1996 panel - S effie or Plasma Raffy Jim MD Work Phone: Start: 11-28-2020 Mammography Raffy smith MD Work Phone: Start: 10-25-2019 Renal biopsy prq trocar/needle Fransisco Valdovinos Work Phone: Start: 10-03-2019 ACTIVATED PTT Fransisco Valdovinos Work Phone: Start: 10-03-2019 CBC [facility] Transcribe Provider Start: 10-03-2019 PROTHROMBIN TIME/PT [facility] Transcribe Provider Start: 07-24-2019 Us retroperitoneal r eal time w/image complete Alvarado S Bonyo Work Phone: Plan of Treatment Date Care Activity Detail Author Start: 01-24-2034 Screening for malign ant neoplasm of colon [facility] [employer] Start: 02-22-2027 Lipid panel [facility] Start: 12-20-2025 Creatinine measurement [facility] Start: 12-20-2025 Potassium measurement S [facility] Start: 11-22-2025 Creatinine measurement Creatinine Le [facility] Start: 11-22-2025 Potassium measurement Potassium Leve l [facility] Start: 11-13-2025 Creatinine measurement Creatinine Le [facility] Start: 11-13-2025 Potassium measurement Potassium Leve l [facility] Start: 11-11-2025 Creatinine measurement [facility] Start: 11-11-2025 Potassium measurement S [facility] Start: 09-15-2025 Echocardiography Echocardiogram [facility] Start: 09-15-2025 [facility] Start: 09-06-2025 Creatinine measurement Creatinine Le yoseph [facility] Start: 09-06-2025 Potassium measurement Potassium Leve l [facility] Start: 06-09-2025 Screening for malign ant neoplasm of breast [facility] Start: 01-24-2025 Diabetes: Estimated Glomerular Filtration Rate for Kidney Health Diabetes: Estimated Glomerular Filtration Rate for Kidney Health [facility] Start: 12-18-2024 End: 12-18-2024 Patient encounter procedure 12/18/2024 2:30 PM EDT Office Visit [facility] [place] [address] [place] [address] Raffy Rojas MD [address] [place] [address] [facility] Start: 12-06-2024 End: 12-06-2024 Patient encounter procedure 12/06/2024 11:00 AM EDT Office Visit [facility] [address] [place] [phone] Raffy Rojas MD [address] [place] [address] [facility] Start: 12-04-2024 COVID-19 Vaccine ( season) COVID-19 Vaccine () [facility] Start: 12-04-2024 Influenza vaccination S [facility] Start: 12-04-2024 [facility] Start: 11-27-2024 End: 11-27-2024 Patient encounter procedure 11/27/2024 3:30 PM EDT Office Visit [facility] [place] [address] [place] [phone] Raffy Rojas MD [address] [place] [address] [facility] Start: 11-22-2024 End: 11-22-2024 ambulatory [facility] Start: 11-22-2024 End: 11-22-2024 Patient encounter procedure 11/22/2024 9:15 AM EDT Office Visit [facility] [address] [place] [phone] Raffy Rojas MD [address] [place] [address] [facility] Start: 11-14-2024 End: 12-14-2024 CBC panel - Blood by Automated count CBC Lab Routine Anemia due to other cause, not classified Expected: 11/14/2024 (Approximate), Expires: 12/14/2024 [facility] Work Phone: Comment on above: Expected: 11/14/2024 (Approximate), Expires: 12/14/2024 Start: 04-05-2024 Medicare Advantage A nnual Wellness Visit Medicare Advantage Annual Wellness Visit [facility] Start: 04-05-2024 [facility] Start: 01-13-2024 Screening for malign ant neoplasm of breast Mammogram [facility] Start: 12-05-2023 COVID-19 Vaccine () COVID-19 Vaccine () [facility] Start: 12-05-2023 COVID-19 Vaccine () COVID-19 Vaccine () [facility] Start: 12-05-2023 Influenza vaccination Influenza Vacc ine (#1) [facility] Start: 12-05-2023 [facility] Start: 10-25-2023 Hepatitis B Vaccines (5 of 5 - Risk Dialysis Recombivax 3-dose series) Hepatitis B Vaccines (5 of 5 - Risk Dialysis Recombivax 3-dose series) [facility] Start: 10-25-2023 [facility] Start: 06-25-2023 End: 06-24-2024 RFA Guidance for atherectomy of AV fistula-- W contrast IV IR fistulagram Imaging Routine End stage renal disease (HCC) Expected: 06/25/2023, Expires: 06/24/2024 [facility] [employer] Work Phone: Comment on above: Expected: 06/25/2023 , Expires: 06/24/2024 Start: 04-05-2023 Medicare Advantage A nnual Wellness Visit Medicare Advantage Annual Wellness Visit [facility] Start: 02-22-2023 Lipid panel Lipid Panel [facility] Start: 02-21-2023 Diabetes mellitus screening [facility] Start: 02-21-2023 Hemoglobin A1c measurement Herminia betes: Hemoglobin A1C [facility] Start: 12-04-2022 COVID-19 Vaccine () COVID-19 Vaccine () [facility] Start: 12-04-2022 Influenza vaccination S [facility] Start: 08-26-2022 End: 08-26-2022 Patient encounter procedure 08/26/2022 Office Visit Vascular Surgery Raffy Rojas MD [address] [place], [place] [id number] [facility] Start: 08-07-2022 End: 08-07-2022 Admission to same day surgery center 08/07/2022 Surgery Procedural Raffy Rojas MD [address] [place], [place] [id number] LEFT UPPER EXTREMITY ARTERIOVENOUS GRAFT PLACEMENT [05825 (CPT )] [facility] Comment on above: LEFT UPPER EXTREMITY ARTERIOVENOUS GRAFT PLACEMENT [70407 (CPT )] Start: 08-07-2022 End: 08-07-2022 Crtj arven fstl xcp dir arven anast nonautog grf CREATION AV FISTULA WITH NONAUTOGEMOUS GRAFT Dependence on renal dialysis (HCC) End stage renal disease (HCC) 08/07/2022 9:30 AM EDT [facility] Operating Room Start: 08-07-2022 Subsequent hospital visit by physician 08/07/2022 Hospital Encounter Procedural Raffy Rojas MD [address] [place] [id number] [facility] Start: 08-03-2022 End: 08-03-2022 Patient encounter procedure 08/03/2022 Office Visit Vascular Surgery Raffy Rojas MD [address] [place] [phone] [facility] Start: 07-17-2022 End: 07-17-2022 Admission to same day surgery center 07/17/2022 Surgery Procedural Raffy Rojas MD [address] [place], [place] [phone] LEFT UPPER EXTREMITY ARTERIOVENOUS GRAFT PLACEMENT [71070 (CPT )] [facility] Comment on above: LEFT UPPER EXTREMITY ARTERIOVENOUS GRAFT PLACEMENT [38148 (CPT )] Start: 07-17-2022 End: 07-17-2022 Anesthesia consultation 07/17/2022 Anesthesia Event Procedural Mary Wilkinson, TOOL ROOM ATTENDANT - 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 [id number] [place] [address] [facility] MAIN OR Start: 07-17-2022 End: 07-17-2022 Crtj arven fstl xcp dir arvwatson anast nonautog grf CREATION AV FISTULA WITH NONAUTOGEMOUS GRAFT Dependence on renal dialysis (HCC) End stage renal disease (HCC) 07/17/2022 11:30 AM EDT [facility] Operating Room Start: 07-17-2022 Subsequent hospital visit by physician 07/17/2022 Hospital Encounter Procedural Raffy Rojas MD [address] [place] [address] [facility] OR Start: 07-16-2022 Hepatitis B Vaccines (2 of 2 - CpG 2-dose series) Hepatitis B Vaccines (2 of 2 - CpG 2-dose series) [facility] Start: 05-24-2022 Hemoglobin A1c measurement Herminia betes: Hemoglobin A1C [facility] Start: 04-05-2022 ADVANCE DIRECTIVE DISCUSSION ADVANCE DIRECTIVE DISCUSSION [facility] Start: 04-05-2022 DEPRESSION ASSESSMENT DEPRESSION ASS ESSMENT [facility] Start: 12-04-2021 Influenza vaccination [facility] Start: 11-28-2021 Screening for malign ant neoplasm of breast Mammogram [facility] Start: 04-30-2021 COVID-19 Vaccine (4 - Booster for Moderna series) COVID-19 Vaccine (4 - Booster for Moderna series) [facility] Start: 04-30-2021 COVID-19 Vaccine (4 - Moderna series) COVID-19 Vaccine (4 - Moderna series) [facility] Start: 10-16-2020 COVID-19 VACCINE (3 - Booster for Moderna series) COVID-19 VACCINE (3 - Booster for Moderna series) [facility] Start: 12-05-2019 Influenza vaccination [facility] Start: 09-03-2018 Breast cancer screen Breast cancer s seth [facility], [place] Start: 2015 ADVANCE DIRECTIVE DISCUSSION ADVANCE DIRECTIVE DISCUSSION [facility] Start: 2015 BONE DENSITY BONE DENSITY [facility] Start: 2015 Pneumococcal 65+ yea rs Vaccine (1 of 1 - PPSV23) Pneumococcal 65+ years Vaccine (1 of 1 - PPSV23) [place], [place] Start: 2015 Pneumococcal Vaccine : 65+ Years (1 of 1 - PCV) Pneumococcal Vaccine: 65+ Years (1 of 1 - PCV) [facility] Start: 2015 PNEUMOVAX AGE 65 AND OVER WITH 5YR LOOKBACK (#1) PNEUMOVAX AGE 65 AND OVER WITH 5YR LOOKBACK (#1) [facility] Start: 2010 HEPATITIS B (1 of 3 - Risk 3-dose series) HEPATITIS B (1 of 3 - Risk 3-dose series) [facility] Start: 2010 RSV High Risk: (Elde rly (60+) or Population) (1 - Risk 60-74 years 1-dose series) RSV High Risk: (Elderly (60+) or Population) (1 - Risk 60-74 years 1-dose series) [facility] Start: 2010 RSV Immunization age d 60 or older (1 - 1-dose 60+ series) RSV Immunization aged 60 or older (1 - 1-dose 60+ series) [facility] Start: 2010 RSV Immunization for Adults (1 - Risk 60-74 years 1-dose series) RSV Immunization for Adults (1 - Risk 60-74 years 1-dose series) [facility] Start: 2010 [facility] Start: 2005 DEXA (modify frequen cy per FRAX score) DEXA (modify frequency per FRAX score) [place], [place] Start: 2000 Colon cancer screen colonoscopy Colon cancer screen colonoscopy [place], [place] Start: 2000 Pneumococcal Vaccine : 50+ Years (1 of 1 - PCV) Pneumococcal Vaccine: 50+ Years (1 of 1 - PCV) [facility] Start: 2000 Shingles Vaccine (1 of 2) Zaman gles Vaccine (1 of 2) [place], [place] Start: 2000 SHINGRIX VACCINE (1 of 2) ZAMAN GRIX VACCINE (1 of 2) [facility] Start: 2000 Tuberculosis screening COLOREC NELLA CANCER SCREENING,SEE MODIFIER [facility] Start: 2000 Zoster Vaccines (1 of 2) Zoste r Vaccines (1 of 2) [facility] Start: 2000 [facility] Start: 1995 COLOGUARD (FIT-DNA) COLOGUARD (FIT-D NA) [facility] Start: 1995 Colonoscopy COLONOSCOPY [facility] Start: 1995 COLORECTAL CANCER SCREENING COLORECTAL CANCER SCREENING [facility] Start: [address] COLONOGRAPHY [facility] Start: 1995 DIABETES SCREEN DIABETES SCREEN [facility] Start: 1995 FECAL OCCULT BLOOD FECAL OCCULT BLOO D [facility] Start: 1995 LIPID SCREEN LIPID SCREEN [facility] Start: 1995 SIGMOIDOSCOPY SIGMOIDOSCOPY [facility] Start: 1990 Lipid screen Lipid screen [place], [place] Start: 1990 Mammography MAMMOGRAM [facility] Start: 1990 Screening for malign ant neoplasm of breast Mammogram [facility] Start: 1972 DTaP/Tdap/Td Vaccine s (1 - Tdap) DTaP/Tdap/Td Vaccines (1 - Tdap) [facility] Start: 1969 DTaP/Tdap/Td vaccine (1 - Tdap) DTaP/Tdap/Td vaccine (1 - Tdap) [place], [place] Start: 1969 DTaP/Tdap/Td Vaccine s (1 - Tdap) DTaP/Tdap/Td Vaccines (1 - Tdap) [facility] Start: 1969 Pneumococcal Vaccine : 50+ Years (1 of 2 - PCV) Pneumococcal Vaccine: 50+ Years (1 of 2 - PCV) [facility] Start: 1969 SHINGRIX VACCINE (1 of 2) ZAMAN GRIX VACCINE (1 of 2) [facility] Start: 1969 Urine microalbumin profile DTAP,TDAP ,TD (1 - Tdap) [facility] Start: 1969 Zoster Vaccines (1 of 2) Zoste r Vaccines (1 of 2) [facility] Start: 1969 [facility] Start: 1968 Diabetes mellitus screening Diabetes Screening [facility] Start: 1968 Diabetes: Urine Albumin-Creatinine Ratio for Kidney Health Diabetes: Urine Albumin-Creatinine Ratio for Kidney Health [facility] Start: 1968 [facility] Start: 1968 Hepatitis C [facility] Start: 1962 Depression Monitoring Depression Mon itoring [facility] Start: 1962 Depression Screening Depression Scre ening [facility] Start: 1962 [facility] Start: 1960 Diabetic foot examination Diabetes: Foot Exam [facility] Start: 1960 Glaucoma screening Diabetes: R etinopathy Screening [facility] Start: 1960 Preventive dental service Diabetes: Dental Exam [facility] Start: 1956 Pneumococcal Vaccine : 65+ Years (1 - PCV) Pneumococcal Vaccine: 65+ Years (1 - PCV) [facility] Start: 1956 Pneumococcal Vaccine : 65+ Years (1 of 2 - PCV) Pneumococcal Vaccine: 65+ Years (1 of 2 - PCV) [facility] Start: 1956 PNEUMOCOCCAL: 65+ (1 - PCV) PNEUMOCOCCAL: 65+ (1 - PCV) [facility] Start: 1951 HEPATITIS A (1 of 2 - Risk 2-dose series) HEPATITIS A (1 of 2 - Risk 2-dose series) [facility] Start: 1950 Echocardiography Echocardiogram Univ [facility] Start: 1950 Hepatitis C screen Hepatitis C [place], [place] Start: 1950 Lipid panel Lipid Panel [facility] Start: 1950 Medicare Advantage A nnual Wellness Visit (AWV) Medicare Advantage Annual Wellness Visit (AWV) [facility] Start: 1950 Medicare Annual Well ness Visit Medicare Annual Wellness Visit (AWV) [facility] Start: 1950 Screening for malign ant neoplasm of colon [facility] Start: 1950 Screening for osteoporosis [facility] Bacteria identified in Blood by Culture [facility] End: 02-19-2024 Bacteria identified in Lower respiratory specimen by Aerobe culture [facility] Comment on above: Once (Lab) for 1 Occ urrences starting 02/19/2024 until 02/19/2024 Basic metabolic 2000 panel - Serum or Plasma Basic metabolic panel Lab Routine Daily (Lab) until discontinued starting 08/31/2024, 5 completed [facility] Service Area Work Phone: Comment on above: Daily (Lab) until di scontinued starting 08/31/2024, 5 completed End: 09-07-2024 CBC panel - Blood by Automated count [facility] Work Phone: Comment on above: Morning draw (Lab) f or 3 Days starting 09/05/2024 until 09/07/2024, 1 completed Morning draw (Lab) f or 3 Occurrences starting 09/05/2024 until 09/07/2024 End: 08-31-2024 Consult to Interventional Radiology Consult to Interventional Radiology Imaging STAT Once for 1 Occurrences starting 08/31/2024 until 08/31/2024 [facility] Work Phone: Comment on above: Once for 1 Occurrenc es starting 08/31/2024 until 08/31/2024 ECG 12 lead ECG 12 lead CV E CG STAT 08/09/2023 4:05 PM EDT [facility] [employer] Work Phone: Electrocardiogram, 1 2-lead PRN ACS symptoms Electrocardiogram, 12-lead PRN ACS symptoms ECG Routine As needed until discontinued starting 08/31/2024 [facility] Work Phone: Comment on above: As needed until disc ontinued starting 08/31/2024 End: 12-13-2024 [facility] End: 02-19-2024 Hemodialysis Hemodialysis inpatient 3 Hours Dialysis Routine Once for 1 Occurrences starting 02/19/2024 until 02/19/2024 [facility] Work Phone: Comment on above: Once for 1 Occurrenc es starting 02/19/2024 until 02/19/2024 End: 08-31-2024 Hemodialysis Hemodialysis inpatient 3.5 Hours Dialysis Routine Once for 1 Occurrences starting 08/31/2024 until 08/31/2024 [facility] Service Area Work Phone: Comment on above: Once for 1 Occurrenc es starting 08/31/2024 until 08/31/2024 End: 09-02-2024 Hemodialysis Hemodialysis inpatient 3.5 Hours Dialysis Routine Once for 1 Occurrences starting 09/02/2024 until 09/02/2024 [facility] Work Phone: Comment on above: Once for 1 Occurrenc es starting 09/02/2024 until 09/02/2024 End: 09-05-2024 Hemodialysis Hemodialysis inpatient 3.5 Hours Dialysis Routine Once for 1 Occurrences starting 09/05/2024 until 09/05/2024 [facility] Service Area Work Phone: Comment on above: Once for 1 Occurrenc es starting 09/05/2024 until 09/05/2024 End: 09-07-2024 Hemodialysis Hemodialysis inpatient 3.5 Hours Dialysis Routine Once for 1 Occurrences starting 09/07/2024 until 09/07/2024 [facility] Service Area Work Phone: Comment on above: Once for 1 Occurrenc es starting 09/07/2024 until 09/07/2024 End: 09-07-2024 Renal function 2000 panel - Serum or Plasma Renal Function Panel Lab Routine Morning draw (Lab) for 3 Occurrences starting 09/05/2024 until 09/07/2024, 2 completed [facility] Work Phone: Comment on above: Morning draw (Lab) f or 3 Occurrences starting 09/05/2024 until 09/07/2024, 2 completed SURGICAL PATHOLOGY SURGICAL PATH OLOGY Lab Routine 10/25/2019 [facility] Immunizations Immunization Date Immunization Notes Care Provider Fa [facility] 01-03-2024 influenza virus vaccine, unspecified formulation CHAPARRO Moore MD Work Phone: [employer] 01-16-2023 influenza virus vaccine, unspecified formulation Brown Kaur DO Work Phone: [employer] 08-21-2020 Moderna SARS-CoV-2 Vaccination Raffy Rojas MD Work Phone: [facility] 07-24-2020 Moderna SARS-CoV-2 Vaccination Raffy Rojas MD Work Phone: [employer] NEGATED: Highlighted row has not occurred!03-03-2024 Seasonal trivalent influenza vaccine, adjuvanted, preservative free Marcuszamzam Ragland DO Work Phone: [facility] [employer] Comment on above: Deferred: Patient Re fused - pt states she alread had one Payers Date Payer Category Payer Self-pay 2023 Medicare (Managed Care) [employer] [id number] 2023 Medicare HMO [id number] 2022 Unknown [id number] 2021 Medicare [id number] 2019 Medicare UHC AARP MEDICAR E [facility] AARP MEDICARE HMO [id number] 2019-Present HMO [id number] 2018 Private Health Insurance [id number] 1950 Unknown [id number] 1950 Unknown [id number] 1950 Unknown [id number] [id number] 1950 Unknown [id number] Unknown [id number] Unknown [id number] [id number] Unknown [id number] [id number] Unknown [id number] Unknown [id number] [id number] Unknown [id number] Social History Date Type Detail Facility [facility] if ever smoked [place], [place] Start: 1950 Sex Assigned At Not on file [place], [place] Exposure to SARS-CoV -2 (event) Unable to assess [facility] Start: 06-14-2022 End: 08-31-2024 Exposure to SARS-CoV-2 (event) Not sure [facility] Tobacco smoking stat [facility] Tobacco smoking consumption unknown [facility] Start: 02-22-2022 End: 08-31-2024 Tobacco smoking status [facility] Never smoked tobacco [facility] Start: 02-22-2022 End: 08-31-2024 Tobacco use and exposure Smokeless tobacco non-user [facility] Start: 06-24-2022 End: 12-06-2024 Alcohol intake Current drinker of alcohol (finding) [facility] Start: 06-24-2022 End: 12-09-2024 Alcohol intake [facility] Start: 02-22-2022 History SDOH Alcohol Frequency 5 [facility] Start: 02-22-2022 History SDOH Alcohol Std Drinks 1 [facility] Start: 02-22-2022 End: 08-07-2022 History SDOH IPV Fear 2 [facility] Start: 07-10-2022 Alcohol Comment weekly [facility] Start: 08-07-2022 End: 12-09-2024 Humiliation, Afraid, Rape, and Kick questionnaire [HARK] [facility] Within the last year , have you been afraid of your partner or ex-partner? No [facility] How often to you hav e a drink containing alcohol? 4 or more times a week [facility] How many standard dr inks containing alcohol do you have on a typical day? 1 or 2 [facility] How often do you hav e 6 or more drinks on 1 occasion? Never [facility] In the past 12 month s, has lack of transportation kept you from medical appointments or from getting medications? No [facility] Start: 11-03-2021 Sex Female (finding) [facility] How often to you hav e a drink containing alcohol? Monthly or less [facility] How often to you hav e a drink containing alcohol? 2-3 time sa week [facility] (I/We) worried wheth er (my/our) food would run out before (I/we) got money to buy more. Never true [facility] How often do you hav e 6 or more drinks on 1 occasion? Less than monthly [facility] Do you belong to any clubs or organizations such as christianity groups, unions, fraternal or athletic groups, or school groups? Yes [facility] Are you now , , , , never or living with a partner? [facility] Do you feel stress - tense, restless, nervous, or anxious, or unable to sleep at night because your mind is troubled all the time - these days [OSQ] Very much [facility] Medical Equipment Procedure Code Equipment Code Equipment Origin al Text Equipment Identifier Dates [id number] Start: 08-07-2022 [id number] Start: 01-24-2024 Functional Status Date Assessment Result Facility 10-31-2024 Total score [AUDIT-C] [facility] 08-31-2024 [facility] suicide s everity rating scale screener - recent [C-SSRS] [facility] Work Phone: 08-31-2024 Total score [AUDIT-C] 1 09/01/19 12:15 AM Fe Muñoz, CYNTHIA [facility] Work Phone: 08-31-2024 Patient Health Quest ionnaire 2 item (PHQ-2) [Reported] [facility] Work Phone: [facility] Work Phone: [facility] Clinical Notes 12-31-2020 to 12-28-2024 Casi Rodgers RN - 12/28/2024 10:26 AM EDTCasi Rodgers RN - 12/28/2024 10:26 AM EDBobby Kaur, DO - 12/28/2024 9:57 AM EDTDischarge Delfino Kaur, DO - 12/28/2024 9:57 AM EDT Note Date & Type Note Facility 12-28-2024 Emergency department Note Called [facility] and spoke with nurse Tyra at [...] as report. No signs of injury noted. [facility] 12-28-2024 Emergency department Note Called [facility] and spoke with Tyra nurse at the facility to inform therm of [...] Patient presents with Altered Mental Status Per [facility] Lat[facility], pt was altered last night. Sent [...] daily as needed (first line for agitation, Benton PRN Seroquel for ONLY if danger to [...] Result Value Glucose 80 Narrative: Performed by: Santa Kirk, [address] [place] [id number] CLIA ID: [id number] All other labs were within normal range [...] Suspect that her symptoms were due to owning. She will be discharged to her nursing facility with return precautions. CRITICAL CARE TIME CONSULTS: None PROCEDURES: Unless otherwise noted below, none Procedures Patients symptoms are consistent with sepsis, severe sepsis, or septic shock (If yes use ".sepsiscoremeasure"): FINAL IMPRESSION 1. Transient alteration of awareness DISPOSITION Discharge 12/28/2024 10:19:34 AM PATIENT REFERRED TO: Roxie Spain [address] [facility] [id number] DISCHARGE MEDICATIONS: Current Discharge Medication List (Comment: [...] 01/25/2024 Performed by Chrissy Gilman MD at [facility] ENDOSCOPY IR CVC TUNNELED DIALYSIS CATHETER PLACEMENT 02/27/2022 IR CVC TUNNELED CATHETER PLACEMENT 02/27/2022 Candis Andrade MD [facility] SPECIAL PROCEDURES IR EMBOLIZATION 01/24/2024 IR EMBOLIZATION 01/24/2024 Jovan Glynn MD [facility] SPECIAL PROCEDURES VASCULAR SURGERY Left [...] 10 min Stress: Stress Concern Present (12/09/2024) [facility] [place] [facility] - Occupational Stress Questionnaire Feeling of Stress : Very much Social Connections: Moderately Integrated (12/09/2024) Social Connection and Isolation Panel [NHANES] Frequency of Communication with Friends and Family: More than three times a week Frequency of Social Gatherings with Friends and Family: Three times a week Attends Latter-Day Services: 1 to 4 times per year [...] DO 12/28/24 1027 documented in this encounter [facility] 12-28-2024 Hospital Discharge instructions Brown Kaur DO - 12/28/2024 10:20 AM EDT Schedule an appointment to follow-up with your primary care physician for evaluation of your confusion at night. Return to the ER for fevers, chest pain, urinary symptoms or worsening confusion. documented in this encounter [facility] 12-28-2024 Physician Emergency department Note EMERGENCY DEPARTMENT ENCOUNTER Pt Name: Apoorva Gonzalez Birthdate 1950 Date of evaluation: 12/28/2024 ED Provider: Brown Kaur DO CHIEF COMPLAINT Chief Complaint Patient presents with Altered Mental Status Per [facility] Lat[facility] pt was altered last night. Sent to [...] daily as needed (first line for agitation, Benton PRN Seroquel for ONLY if danger to self/others/treatment). sevelamer (Renagel) 800 MG tablet Take 800 mg by mouth 3 times daily (with meals). Swallow tablet whole; do not crush, break, or chew. Thiamine HCl (vitamin B-1) 250 MG tablet Take 250 mg by mouth daily. ALLERGIES Patient has no known allergies. FAMILY HISTORY Family History[3] SOCIAL HISTORY Social History[4] SCREENINGS [place] Coma Scale Best Eye Response: Spontaneous Best [...] Result Value Glucose 80 Narrative: Performed by: Santa Kirk, [address] [place], [place] [address] [address] CLIA ID: [id number] All other labs were within normal range [...] sepsis, or septic shock (If yes use ".sepsiscoremeasure"): FINAL IMPRESSION 1. Transient alteration of awareness DISPOSITION Discharge 12/28/2024 10:19:34 AM PATIENT REFERRED TO: Roxie Spain [address] [facility] [phone] DISCHARGE MEDICATIONS: Current Discharge Medication List [...] Date Chronic kidney disease (CKD) Hemodialysis patient ([facility] ([facility]) Wednesday, , Wednesday History of blood transfusion 02/27/2022 Hypertension Seizure ([facility]) Developed seizure-like activity on 02/24 during hospital admission [2] Past Surgical History: Procedure Laterality Date AV FISTULA PLACEMENT Left 08/07/2022 COLONOSCOPY N/A 01/25/2024 Performed by Chrissy Gilman MD at [facility] ENDOSCOPY IR CVC TUNNELED DIALYSIS CATHETER PLACEMENT 02/27/2022 IR CVC TUNNELED CATHETER PLACEMENT 02/27/2022 Candis Andrade MD [facility] SPECIAL PROCEDURES IR EMBOLIZATION 01/24/2024 IR EMBOLIZATION 01/24/2024 Jovan Glynn MD [facility] SPECIAL PROCEDURES VASCULAR SURGERY Left [...] 10 min Stress: Stress Concern Present (12/09/2024) [facility] [place] [facility] - Occupational Stress Questionnaire Feeling of Stress : Very much Social Connections: Moderately Integrated (12/09/2024) Social Connection and Isolation Panel [NHANES] Frequency of Communication with Friends and Family: More than three times a week Frequency of Social Gatherings with Friends and Family: Three times a week Attends Latter-Day Services: 1 to 4 times per year [...] Year: No Brown Kaur DO 12/28/24 1027 [facility] 12-20-2024 Nurse Note [facility] Discharge order placed. IVS removed. Transport here to take pt to SNF. Patient Name: Apoorva Gonzalez Patient : 1950 Acct: [id number] Date of Admission: 12/08/2024 Room/Bed: [facility] A Code Status: DNR-CCA Allergies: Allergies[1] [...] 237 12/20/2024 0017 NA 134 (L) 12/20/2024 0017 K 4.3 12/20/2024 0017 CL 106 12/20/2024 0017 CO2 21 (L) 12/20/2024 0017 BUN 15 12/20/2024 0017 CREATININE 2.84 (H) 12/20/2024 0017 CALCIUM 6.5 (L) 12/20/2024 0017 PHOS 2.3 12/14/2024 0240 IV Drips and Rate/Dose Continuous Meds[3] Safety - Before each treatment: Dialysis Machine No.: [id number] RO Machine Number: [id number] Dialyzer Lot No.: [id number] Tubing Lot Number: [id number] All Connections Secure: Yes Venous Parameters Set: Yes Arterial Parameters Set: Yes NS Bag: Yes Saline Line Double Clamped: Yes Dialyzer: Nipro Prime Volume (mL): 200 mL RO Machine Number: [id number] RO Machine Log Sheet Completed: Yes Machine Alarm Self Test: Passed, Completed (1410) (12/20/24 141) Air Foam Detector: Tested, Proper Function Extracorporeal Circuit Tested for Integrity: Yes Machine Conductivity: 13.7 Manual Conductivity: 13.6 Manual Ph: 7.2 Bleach Test (Neg): Yes Bath Temperature: 36 C (96.8 F) Conductivity Meter Serial #: [id number] Machine Functioning Alarm Free? Yes Dialysis Bath: K+ (Potassium): 3 Ca+ (Calcium): 2.5 Na+ (Sodium): 135 HCO3 (Bicarb): 35 Bicarbonate Concentrate Lot No.: [id number] Acid Concentrate Lot No.: [id number] Chlorine Testing - Before each treatment and every 4 hours: Time On: 1439 Time Off: 1739 Treatment Goal: 2L Weight Height: 164 cm (5' 4.57") (12/11/24 0646) Weight: 52.8 kg (116 lb [...] 600 Yes pt watching tv, uf removal 186712/20/24 1700 400 mL/min 830 ml/hr -130 mmHg 240 mmHg 80 600 Yes pt resting, uf removal 201512/20/24 1715 400 mL/min 830 ml/hr -130 mmHg 280 mmHg 90 600 Yes pt watching tv, uf removal 215212/20/24 1730 400 mL/min 830 ml/hr -130 mmHg [...] Seizures (HCC) ESRD (end stage renal disease) ([facility]) Dialysis patient (HCC) Wound dehiscence End stage congestive heart failure ([facility]) Fall, initial encounter Fall (on)(from) sidewalk curb, initial encounter Moderate malnutrition (CMS/HCC) ([facility]) [3] Wound Care consulted for Pressure Injury Prevention. Pt's Arnol score= 14 on 12/18/2024 Pt in chair for assessment. Pt currently followed by Wound [facility] group for wound to Left buttock stage 3 pressure injury. For Left buttock stage 3 pressure injury wound assessment and treatment plan, please see Wound/Ostomy [facility] [employer] progress notes. Pt's pressure points assessed: Pt's [...] and applied. Prevention Measures in place, including: [place] sheet with pillows/wedges (in place), Bilateral foam heel protectors (obtained for pt and applied to pt), Heels elevated off chair on pillows, Bilateral Elbows (off loaded on pillow), Sacral foam (NA see Wound Care [facility]YING [facility]ER treatment plan), Upper Spine foam (obtained and [...] in place. PT/OT consult in place. D/W skiver counter skin assessment, preventions, and interventions implemented. Will continue to follow pt. Please Voicera for any questions or concerns. DEWAYNE Lozano, RN Patient Name: Apoorva Gonzalez Patient : 1950 Acct: [id number] Date of Admission: 12/08/2024 Room/Bed: [facility] A Code Status: DNR-CCA Allergies: Allergies[1] [...] patient education complete. Call light in reach 12/18/24 1815 Alert (0) 2 Regular Other (Comment) None (Room air) Clear;Diminished Other (Comment) Warm;Dry Rounded Active Generalized +1 Mild Mild +2 +2 -- Labs Lab Results Component Value Date/Time WBC 19.3 (H) 12/18/2024 0420 HGB 8.8 (L) 12/18/2024 0907 HGB 9.3 12/11/2024 2030 HCT 25.1 (L) 12/18/2024 0907 PLT 327 12/18/2024 0420 NA 128 (L) 12/18/2024 0420 K 4.4 12/18/2024 0420 CL 97 (L) 12/18/2024 0420 CO2 25 12/18/2024 0420 BUN 18 12/18/2024 042 CREATININE 3.46 (H) 12/18/2024 042 CALCIUM 7.3 (L) 12/18/2024 042 PHOS 2.3 12/14/2024 0240 IV Drips and Rate/Dose Continuous Meds[3] Safety - Before each treatment: Dialysis Machine No.: [id number] RO Machine Number: [id number] Dialyzer Lot No.: [id number] Tubing Lot Number: [id number] All Connections Secure: Yes Venous Parameters Set: Yes Arterial Parameters Set: Yes NS Bag: Yes Saline Line Double Clamped: Yes Dialyzer: Nipro Prime Volume (mL): 200 mL RO Machine Number: [id number] RO Machine Log Sheet Completed: Yes Machine Alarm Self Test: Completed, Passed (at 1455) (12/18/24 1500) Air Foam Detector: Tested, Proper Function, pH Reading Extracorporeal Circuit Tested for Integrity: Yes Machine Conductivity: 13.7 Manual Conductivity: 13.8 Manual Ph: 7.2 Bleach Test (Neg): Yes (water check negative at 1615) Bath Temperature: 36 C (96.8 F) Conductivity Meter Serial #: [id number] Machine Functioning Alarm Free? Yes Dialysis Bath: K+ (Potassium): 3 Ca+ (Calcium): 2.5 Na+ (Sodium): 135 HCO3 (Bicarb): 35 Bicarbonate Concentrate Lot No.: [id number] Acid Concentrate Lot No.: [id number] Chlorine Testing - Before each treatment and every 4 hours: Time On: 1508 Time Off: 1810 Treatment Goal: EVEN Weight Height: 164 cm (5' 4.57") (12/11/24 0646) Weight: 52.8 kg (116 lb [...] only one wrist restraint) Provider Name: Dori BRAYDEN Provider Role: CRISTO Method of Communication: Secure [...] ICU is unable to place line today. NETWORK ADMIN put 18g in upper arm to attempt [...] to the issues with getting access/blood. Messaged dictaphone typist Nany DRYING CAN WORKER regarding not being able to get 2345 [...] specimen contaminated and recommended repeat H&H. Messaged dictaphone typist Nany OWEN about critical. Per DRYING CAN WORKER repeat H&H ordered for morning, no transfusion [...] attempted. Unable to get cbc. Spoke with lai regarding getting H&H when they have a chance. Messaged DR Leonardo about patient needing multiple sticks for labs. Crushed patients meds and put in pudding. Patient only took some of meds, and refused the rest. Patient Name: Apoorva Gonzalez Patient : 1950 Acct: [id number] Date of Admission: 12/08/2024 Room/Bed: [facility] A Code Status: DNR-CCA Allergies: Allergies[1] [...] - Before each treatment: Dialysis Machine No.: [id number] Machine Number: [id number] Dialyzer Lot No.: [id number] Tubing Lot Number: [id number] All Connections Secure: Yes Venous Parameters Set: Yes Arterial Parameters Set: Yes NS Bag: Yes Saline Line Double Clamped: Yes Dialyzer: Nipro Prime Volume (mL): 200 mL RO Machine Number: [id number] RO Machine Log Sheet Completed: Yes Machine Alarm Self Test: Completed, Passed (12/15/241539) Air Foam Detector: Tested, Proper Function, pH Reading Extracorporeal Circuit Tested for Integrity: Yes Machine Conductivity: 13.6 Manual Conductivity: 13.6 Manual Ph: 7 Bleach Test (Neg): Yes Bath Temperature: 36 C (96.8 F) Conductivity Meter Serial #: [id number] Machine Functioning Alarm Free? Yes Dialysis Bath: K+ (Potassium): 4 Ca+ (Calcium): 2.5 Na+ (Sodium): 135 HCO3 (Bicarb): 35 Bicarbonate Concentrate Lot No.: [id number] Acid Concentrate Lot No.: [id number] Chlorine Testing - Before each treatment and every 4 hours: Time On: 1544 Time Off: 1844 Treatment Goal: EVEN Weight Height: 164 cm (5' 4.57") (12/11/24 0646) Weight: 52.8 kg (116 lb [...] Name: Apoorva Gonzalez Patient : 1950 Acct: [id number] Date of Admission: 12/08/2024 Room/Bed: [facility] A Code Status: DNR-CCA Allergies: Allergies[1] [...] -- -- -- Labs Recent Labs 12/14/24 0240 WBC 13.1* HGB 7.5* HCT 23.6* PLT 305 Lab Results Component Value Date/Time WBC 13.1 (H) 12/14/2024 0240 HGB 7.5 (L) 12/14/2024 024 HGB 9.3 12/11/2024 2030 HCT 23.6 (L) 12/14/2024 0240 PLT 305 12/14/2024 0240 NA 130 (L) 12/14/2024 0240 K 3.7 12/14/2024 0240 CL 96 (L) 12/14/2024 0240 CO2 25 12/14/2024 0240 BUN 26 (H) [...] - Before each treatment: Dialysis Machine No.: [id number] RO Machine Number: [id number] Dialyzer Lot No.: [id number] RO Machine Log Sheet Completed: Yes Machine Alarm Self Test: Completed, Passed (12/14/24934) Air Foam Detector: Tested, Proper Function Extracorporeal Circuit Tested for Integrity: Yes (test complete at 932) Machine Conductivity: 13.7 Manual Conductivity: 13.6 Bicarbonate Concentrate Lot No.: [id number] Acid Concentrate Lot No.: [id number] Manual Ph: 7.4 Bleach Test (Neg): Yes Bath Temperature: 36 C (96.8 F) Tubing Lot Number: [id number] Conductivity Meter Serial #: [id number] All Connections Secure: Yes Arterial Parameters Set: Yes Saline Line Double Clamped: Yes Air Foam Detector: Tested, Proper Function Prime Volume (mL): 200 mL Machine Functioning Alarm Free? Yes Chlorine Testing - Before each treatment and every 4 hours: Time On: 940 Time Off: 1242 Treatment Goal: 2L Weight Height: 164 cm (5' 4.57") (12/11/24 0646) Weight: 52.8 kg (116 lb [...] distress, eyes closed, respirations easy, UF removed 18312/14/24 1215 400 mL/min 800 ml/hr -220 mmHg [...] Notification Reason for Communication: Fall Provider Name: Luz Garnett NP Provider Role: CRISTO Method of [...] it can cause aspiration. Patient Name: Apoorva Gonzalez Patient : 1950 Acct: [id number] Date of Admission: 12/08/2024 Room/Bed: [facility] A Code Status: DNR-CCA Allergies: Allergies[1] [...] CREATININE 5.60 (H) 12/12/2024102 CALCIUM 7.8 (L) 12/12/2024 0103 PHOS 1.7 (L) 12/09/2024 1023 IV Drips and Rate/Dose Continuous Meds[3] Safety - Before each treatment: Dialysis Machine No.: [id number] RO Machine Number: [id number] Dialyzer Lot No.: [id number] Tubing Lot Number: [id number] All Connections Secure: Yes Venous Parameters Set: Yes Arterial Parameters Set: Yes NS Bag: Yes Saline Line Double Clamped: Yes Dialyzer: Nipro Prime Volume (mL): 200 mL RO Machine Number: [id number] RO Machine Log Sheet Completed: Yes Machine Alarm Self Test: Completed, Passed (12/12/24 1445) Air Foam Detector: Tested, Proper Function, pH Reading Extracorporeal Circuit Tested for Integrity: Yes Machine Conductivity: 13.5 Manual Conductivity: 13.6 Manual Ph: 7.2 Bleach Test (Neg): Yes Bath Temperature: 36 C (96.8 F) Conductivity Meter Serial #: [id number] Machine Functioning Alarm Free? Yes Dialysis Bath: K+ (Potassium): 3 Ca+ (Calcium): 2.5 Na+ (Sodium): 135 HCO3 (Bicarb): 35 Bicarbonate Concentrate Lot No.: [id number] Acid Concentrate Lot No.: [id number] Chlorine Testing - Before each treatment and every 4 hours: Time On: 1445 Time Off: 1800 Treatment Goal: 2L Weight Height: 164 cm (5' 4.57") (12/11/24 0646) Weight: 52.8 kg (116 lb [...] see media tab. Consult placed to wound DRYING CAN WORKER group. Pt turned to left side at end of visit. Prevention Measures in place, including: [place] sheet with pillows/wedges, Foam heel protectors (applied), [...] being unable to answer MRI questions. Messaged dictaphone typist for order for chest xray and KUB. This rn and charger operator helper attempted to get blood cultures, unable to get. Lactic was obtained and sent. Called and left for rapid to see if they can obtain blood cultures. Dr Kevin made aware that at this time blood cultures could not be drawn. Notified dictaphone typist Rishi HART of ABG results. Order to [...] states [facility] documented in this encounter [facility] 12-20-2024 Miscellaneous Notes Transportation confirmed for 630. Called and spoke to brother Deshawn with update on time of discharge. RN and hospital unit coordinator notified via secure chat. Discharge med list transmitted to [facility] via [facility] per TCC request. Confirmed pickup time of 6:30pm on 12/20/24 by transport [employer] [facility] Ghazal at phone number [phone]. Location of facility drop off is [facility]. Facility notified via [facility], TCC notified on secure chat. Discharge order noted in epic. [facility] return to [facility]. Palliative Care Interdisciplinary Team Note: Diagnosis: [...] following. Current discharge plan is return to [facility] once stable. Planned Discharge Disposition: [facility] [...] with noted lengthy discussion for GOC with brotherGENET, yesterday. Plan to follow up on Wednesday. Current discharge plan is return [facility] once stable. Planned Discharge Disposition: [facility] [...] brother-Deshawn. He states received recent information from [facility] that patient may be over assets. He stated he shared this information with the medical social worker at [facility]. DELICATESSEN CLERK did confirm that is the best person [...] into bed using appropriate back board. Ramonita DRYING CAN WORKER notified and fall orders placed. Sitter at bedside, bed alarm placed. No further interventions at this time. Primary RN to call with further concerns. Return Referral placed to [facility] via [facility] per TCC request. Await review and response regarding ability to accept. TCC notified. Care Managment Initial Assessment Date: 12/12/2024 Patient Name: Apoorva Gonzalez : 1950 Patient Information Source of Information: Patient Plate Corrector Name/Contact Information: MARILOU AtkinsJoann, 05/07 patient lethargic Cognition/Language: Impaired Permission given to speak with patient assisted sales representative/caregiver as indicated: Yes Confirmation of [...] Confirmed with: Deshawn arredondo Living Arrangements Facility: [facility] Facility Name: [facility] Plan to Return: Yes Lives with: [...] Continue to follow, [facility] referral indicated [place] of choice: [place] of choice discussed (choice list not indicated; patient to return to [facility]CF) Patient's Choice Rights and [employer] and Collaborative Relationships Disclosed as Indicated for Post-Acute Care: Yes Interdisciplinary Team Engagement: Social Work Referral for: Additional Information: Introduced self and role to patient Deshawn arredondo GENET 2/ patient lethargic. Patient admitted with fall, electrolyte imbalances (HD patient). +IV abx for possible discitis. MRI pending. Nephro, Geriatrics consulted. Brother confirmed patient is from [facility]. She is assist with transfer to [...] of blood components. documented in this encounter [facility] 12-20-2024 Note [facility] 12-20-2024 Hospital course Narrative Hospitalist Discharge Summary Apoorva Navarro Rajinder : 1950 Admit date: 12/08/2024 Discharge date: 12/20/2024 Admitting Physician: Leticia Leonardo DO Primary Care Physician: Roxie Spain Code Status: DNR-CCA Hospital Course: Apoorva is a 73 y.o. female with past medical history hx seizure ( 2021 a/w HTN encephalopathy) ,ESRD on HD ,AV graft placement (Dr. Rojas 2022), excision of infected LUE AV graft [...] outpatient. Seen by geriatrics and nephrology as art consultant in hospital admission. The patient is [...] C (98.4 F) Resp 16 Ht 5' 4.57" (1.64 m) Wt 116 lb 4.8 oz [...] daily as needed (first line for agitation, Benton PRN Seroquel for ONLY if danger to [...] tablet Recommended Follow-up: [facility] [address] [facility] [id number] Victor Manuel Bentio MD [address] [facility] [address] Schedule an appointment as soon as possible for a visit As needed, neck pain [facility] [address] [place] [address] Schedule an appointment as soon as possible for a visit post hospital follow up Complexity of Follow up: [] Moderate Complexity: follow up within 7-14 calendar days (91533) [x] Severe Complexity: follow up within 7 calendar days (92397) Follow up Testing, Pending results or Referrals [...] frame. Signed: Mo Vieira MD Division of Hospitalist Medicine [place] [place] [1] Past Medical History: Diagnosis Date Chronic kidney disease (CKD) Hemodialysis patient (CMS/HCC) (HCC) Wednesday, , Wednesday History of blood transfusion 02/27/2022 Hypertension Seizure (HCC) Developed seizure-like activity on 02/24 during hospital admission documented in this encounter [facility] 12-20-2024 History of Present illness Narrative Nephrology Progress Note Following for esrd Pt seen in room NAD Confused Current Inpatient Medications: Reviewed on JUN. Vitals: BP 155/75 Pulse 93 Temp 36.9 C (98.4 F) Resp 16 Ht 1.64 m (5' 4.57") Wt 52.8 kg (116 lb 4.8 oz) SpO2 100% BMI 19.61 kg/m BLOOD PRESSURE RANGE: Systolic (24hrs), Av , Min:144 , Max:179 ; Diastolic (24hrs), Av, Min:75, Max:87 24HR INTAKE/OUTPUT: Intake/Output Summary (Last 24 hours) at 12/20/2024 144 Last data filed at 12/20/2024 0800 Gross per 24 hour Intake 120 ml Output 1 ml Net 119 ml Physical exam: Constitutional: nad Skin: no rash, turgor wnl Heent: eomi, mmm Neck: no bruits or jvd noted Cardiovascular: Normal S1, S2 without m/r/g Respiratory: CTAB without w/r/r Abdomen: +bs, soft, nt, nd Ext: trace lower extremity edema Data: Labs: Recent Labs 12/18/24 04212/18/24 0907 12/19/24 0027 12/19/24 1009 12/20/24 0017 WBC 19.3* -- 15.7* -- 12.1* HGB 9.0* < > 8.2* 8.1* 7.1* HCT 25.3* < > 23.6* 24.0* 20.9* MCV 86.6 -- 89.1 -- 92.5 PLT 327 -- 274 -- 237 < > = values in this interval not displayed. Recent Labs 12/18/24 04212/19/24 0027 12/20/24 0017 NA 128* 135* 134* [...] any questions or concerns Pipe Soto MD [facility] Geriatric Medicine Inpatient Consult Service Admission Date: [...] for pain --QTc= 451 ms on 12/11/24 --Benton PRN Seroquel for ONLY if danger to [...] PT/OT evaluation --Anticipate d/c to return to [facility] --Vitamin D 60 --Check orthostatic vital signs as able --Executive Admin- supplements ordered BID Acute pain due to [...] level 11.3 -As a new medication with TONE ARTIST APPRENTICE activity, sertraline may be a contributor to encephalopathy. Now discontinued -Continue thiamine supplementation Plan discussed with RN. Follow-up: will follow with you Subjective Chief Complaint: fall Geriatrics consulted for fall HPI- The patient is known to me. 74 y.o. year-old female admitted to acute care from [facility] for fall on 12/08. Patient reportedly [...] (98.5 F) (Temporal) Resp 20 Ht 5' 4.57" (1.64 m) Wt 116 lb 4.8 oz [...] 0.83 12/13/2024 Lab Results Component Value Date [id number] 1,419 (H) 12/13/2024 Lab Results Component Value [...] q8h, Radha Kuzmin, DO, 1,000 mg at 12/20/24 0934 alteplase [...] Daily, Radha Kuzmin, DO, 10 mg at 12/20/24 0848 atorvastatin (Lipitor) tablet 40 mg, 40 mg, Oral, Nightly, John Shepherd, DO, 40 mg at 12/19/242000 B complex-vitamin C-folic acid (Nephrocaps) capsule 1 capsule, 1 capsule, Oral, Daily, John Stuartz, DO, 1 capsule at 12/20/24 0847 cholecalciferol [...] PRN, Radha Kuzmin, DO, 10 mg at 12/19/241999 levETIRAcetam (Keppra) tablet 250 mg, 250 mg, Oral, BID, Mo Vieira MD, 250 mg at 12/20/24 0932 Lidocaine 4 % patch 1 patch, 1 patch, TransDERmal, Daily, Radha Reggiemin, DO melatonin tablet 5 mg, 5 mg, Oral, Nightly PRN, Eileen Duncan, TOOL ROOM ATTENDANT - 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, 5 mg at 12/15/242055 naloxone (Narcan) injection [...] PRN, Radha Paredesmin, DO, 5 mg at 12/20/24 0857 polyethylene glycol (PEG) 3350 (Miralax) packet 17 g, 17 g, Oral, Daily PRN, John Benitez Pentz, DO, 17 g at 12/10/24 1204 pregabalin (Lyrica) capsule 25 mg, 25 mg, Oral, BID PRN, Radha Paredesmin, DO, 25 mg at 12/11/24 1052 QUEtiapine (SEROquel) tablet 12.5 mg, 12.5 mg, Oral, BID PRN, Eileen Duncan, TOOL ROOM ATTENDANT - 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 sodium chloride 0.9 % infusion, 5-250 mL/hr, IntraVENous, PRN, John Stuartz, DO sodium chloride 0.9 % infusion, 250 mL/hr, IntraVENous, PRN, Ramonita Garnett, BRAYDEN sodium chloride 0.9 % infusion, 250 mL/hr, IntraVENous, PRN, Leticia Leonardo, DO sodium chloride 0.9% (NS) flush 5-40 mL, 5-40 mL, IntraVENous, q12h, John Benitez Pentz, DO, 10 mL at 12/20/24 0426 [...] ,ESRD on HD ,AV graft placement (Dr. Rojas 2022), excision of infected LUE AV graft [...] wants to go home when she is ready" On 12/11 daughter noted not answering questions [...] Intake/Output Summary (Last 24 hours) at 12/20/2024 0852 Last data filed at 12/19/2024 5542 Gross per 24 hour Intake -- Output 1 ml Net -1 ml Past Medical History: Medical History[1] LABS: CBC: Recent Labs 12/18/24 0420 12/18/24 0907 12/19/24 [...] interval not displayed. BMP: Recent Labs 12/18/2441912/19/242612/20/24 0017 NA 128* 135* 134* K 4.4 3.9 4.3 CL 97* 102 106 CO2 25 25 21* BUN 18 11 15 CREATININE 3.46* 2.25* 2.84* GLUCOSE 89 73* 72* CALCIUM 7.3* 7.3* 6.5* ANIONGAP 6 8 7 LIVER PROFILE: Recent Labs 12/18/2441912/19/247 12/20/24 0017 AST 51* 49* 57* ALT 6 <6 <6 BILITOT 0.5 0.5 0.6 ALKPHOS 136 144 155* PROT 5.5* 5.3* 5.1* PT/INR: No results for input(s): "PROTIME", "INR" in the last 72 hours. CARDIAC ENZYMES: No results for input(s): "TROPONINI" in the last 72 hours. Procalcitonin: No results found for: "PROCAL" COVID-19 PCR: No results for input(s): "COVID19" in the last 72 hours. Encounter Date: 12/08/24 ECG 12 lead Result Value Heart Rate 94 QRSD Interval 72 QT Interval 360 QTC Interval 451 P [place] 61 QRS [place] 20 T Wave [place] 19 [place] Interval 121 Impression Sinus rhythm [...] (98.5 F) (Temporal) Resp 20 Ht 5' 4.57" (1.64 m) Wt 116 lb 4.8 oz [...] MD Division of Hospitalist Medicine [place] [place] [1] Past Medical History: [...] q8h, Radha Kevin, DO, 1,000 mg at 12/19/241815 alteplase (Cathflo Activase) 2 mg in sterile [...] PRN, Radha Kuzmin, DO, 10 mg at 12/19/241999 levETIRAcetam in sodium chloride (Keppra) IVPB 500 mg, 500 mg, IntraVENous, Daily, Jeane Carlson, TOOL ROOM ATTENDANT - 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, Stopped at 12/19/24 1145 Lidocaine 4 % patch 1 patch, 1 patch, TransDERmal, Daily, Radha Reggiemin, DO melatonin tablet 5 mg, 5 mg, Oral, Nightly PRN, Eileen Duncan, TOOL ROOM ATTENDANT - 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, 5 mg at 12/15/242055 naloxone (Narcan) injection [...] mg, 12.5 mg, Oral, BID PRN, Eileen Adelfo Dakota, TOOL ROOM ATTENDANT - 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 sodium chloride 0.9 % infusion, 5-250 mL/hr, IntraVENous, PRN, John Stuartz, DO sodium chloride 0.9 % infusion, 250 mL/hr, IntraVENous, PRN, Ramonita Garnett, BRAYDEN sodium chloride 0.9 % infusion, 250 mL/hr, IntraVENous, PRN, Leticia Leonardo, DO sodium chloride 0.9% (NS) flush 5-40 mL, 5-40 mL, IntraVENous, q12h, John Stuartz, DO, 10 mL at 12/20/24 0426 sodium [...] IntraVENous, TID, Leticia Leonardo DO, Stopped at 12/19/247 [3] Past Medical History: Diagnosis Date Chronic [...] assess Anthropometric Measures: Height: 164 cm (5' 4.57") Current Body Weight: (pt in chair this AM, last weight from >one week ago) Admission Body Weight: 50.3 kg (111 lb) (stated) Usual Body Weight: (Most recent EDW 47.1kg (104#) from 09/2024. Wt usually range between 105-121# during admissions since August 2024. Wts prior to that within the past year between 105-112#.) [place] Body Weight (lbs) (Calculated): 123 lbs [place] Body Weight (Kg) (Calculated): 56 kg % [place] Body Weight (Calculated): 94.6 % BMI (kg/m2) [...] Alexus Denney RD Contact: Secure chat or *[phone] Orthopedic Surgery Progress Note Orthopedic surgery paged regarding patient ability to perform spine exam. On evaluation, patient is seen resting in bedside chair. Patient becomes frustrated during encounter and states "isn't it late?" Discussed with patient it is 12:00PM and that this provider presented for spine exam. Patient refuses exam, and refuses to answer orientation questions. Please page ortho resident dictaphone typist if/when patient mentation improves so that a formal spine exam may be performed. Orthopaedic surgery will sign off. Please page dictaphone typist orthopaedic resident for questions or concerns. Images from the original note were not included. OCCUPATIONAL THERAPY [facility] Initial Evaluation Name/MRN: Apoorva Gonzalez ([id number]) Evaluation Date: 12/19/2024 Date of : 1950 Admission Date: 12/08/2024 8:06 PM Age: 74 y.o. Room/Bed: W6633/W6633 A Discharge Recommendation: [facility] Facility Other: Continue [...] on HD, PSH AV graft placement (Dr. Rojas 2022), excision of infected LUE AV graft [...] beginning of session, but states increased pain "all over" with mobility. Past Medical History: Medical History[1] Past Surgical History: Surgical History[2] Admission Diagnosis: Patient Active Problem List Diagnosis Date Noted Moderate malnutrition ([facility]) ([facility]) 12/14/2024 Fall, initial encounter 12/09/2024 Fall (on)(from) sidewalk curb, initial encounter 12/09/2024 End stage congestive heart failure ([facility]) 11/13/2024 Wound dehiscence 11/12/2024 Seizures ([facility]) 11/02/2024 ESRD (end stage renal disease) ([facility]) 11/02/2024 Dialysis patient ([facility]) 11/02/2024 Sepsis, due to unspecified organism, unspecified whether acute organ dysfunction present ([facility]) 10/22/2024 Edema of left lower extremity 10/05/2024 COVID-19 09/14/2024 Shortness of breath 03/02/2024 Pulmonary edema, acute ([facility]) 02/19/2024 Gastrointestinal hemorrhage, unspecified gastrointestinal hemorrhage type [...] B socks sitting in recliner, pt states "I can't" and does not attempt. Pt is currently [...] Continued Education Needed Goals Patient Stated Goal: "To finish breakfast". Encounter Problems Encounter Problems (Active) Balance Patient [...] Therapy Time Individual Co-Treatment Co-Evaluation Time In 0920 Time Out 0933 Minutes 13 Shawn Felder OT Patient's Occupational Therapy Plan of Care supervision is transferred to a [facility] Therapy Services Occupational Therapist. Goals and/or treatment plan was established in collaboration with patient/family/other representatives. [1] Past Medical History: Diagnosis Date Chronic kidney disease (CKD) Hemodialysis patient (CMS/HCC) (HCC) Wednesday, , Wednesday History of blood transfusion 02/27/2022 Hypertension Seizure ([facility]) Developed seizure-like activity on 02/24 during hospital admission [2] Past Surgical History: Procedure Laterality Date AV FISTULA PLACEMENT Left 08/07/2022 COLONOSCOPY N/A 01/25/2024 Performed by Chrissy Gilman MD at [facility] ENDOSCOPY IR CVC TUNNELED DIALYSIS CATHETER PLACEMENT 02/27/2022 IR CVC TUNNELED CATHETER PLACEMENT 02/27/2022 Candis Andrade MD [facility] SPECIAL PROCEDURES IR EMBOLIZATION 01/24/2024 IR EMBOLIZATION 01/24/2024 Jovan Glynn MD [facility] [facility] V[facility]ULAR SURGERY Left 11/02/2024 EXCISION OF LEFT UPPER EXTREMITY INFECTED GRAFT (JIM) VASCULAR SURGERY Left 11/05/2024 REVISION OR REPAIR, AV FISTULA (JIM) [facility] Geriatric Medicine Inpatient Consult Service Admission Date: [...] for pain --QTc= 451 ms on 12/11/24 --[place]enton PRN Seroquel for ONLY if danger to [...] PT/OT evaluation --Anticipate d/c to return to [facility] --Vitamin D 60 --Check orthostatic vital signs as able --Palliative care following for ongoing goals of care conversations --Executive Admin- supplements ordered BID Acute pain due to [...] level 11.3 -As a new medication with TONE ARTIST APPRENTICE activity, sertraline may be a contributor to [...] year-old female admitted to acute care from [facility] for fall on 12/08. Patient reportedly [...] (97.7 F) (Temporal) Resp 16 Ht 5' 4.57" (1.64 m) Wt 116 lb 4.8 oz [...] 0.83 12/13/2024 Lab Results Component Value Date [id number] 1,419 (H) 12/13/2024 Lab Results Component Value [...] Daily, Radha Kuzmin, DO, 10 mg at 12/19/24 0952 atorvastatin (Lipitor) tablet 40 mg, 40 mg, Oral, Nightly, John Shepherd, DO, 40 mg at 12/15/242055 B complex-vitamin C-folic acid (Nephrocaps) capsule 1 capsule, 1 capsule, Oral, Daily, John Shepherd, DO, 1 capsule at 12/19/24 0951 cholecalciferol (Vitamin D-3) tablet 5,000 Units, 5,000 Units, Oral, Daily, John Benitez Pentelva, DO, 5,000 Units at 12/19/24 0951 dextrose [...] PRN, Radha Devinzmin, DO, 10 mg at 12/18/24 1854 levETIRAcetam in sodium chloride (Keppra) IVPB 500 mg, 500 mg, IntraVENous, Daily, Jeane Carlson, TOOL ROOM ATTENDANT - 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, Stopped at 12/18/24 1950 Lidocaine 4 % patch 1 patch, 1 patch, TransDERmal, Daily, Radha Paredesmin, DO melatonin tablet 5 mg, 5 mg, Oral, Nightly PRN, Eileen Duncan APRN - 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, 5 mg at 12/15/242055 naloxone (Narcan) injection [...] 12.5 mg, Oral, BID PRN, Eileen Duncan, PARK - 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 sodium chloride 0.9 % infusion, 5-250 mL/hr, [...] mL IVPB, 500 mg, IntraVENous, TID, Leticia Leonardo, DO, Stopped at 12/19/24 1026 Images from the original note were not included. PHYSICAL THERAPY [facility] Initial Evaluation Name/MRN: Apoorva Gonzalez ([id number]) Evaluation Date: 12/19/2024 Date of : 1950 Admission Date: 12/08/2024 8:06 PM Age: 74 y.o. Room/Bed: [facility] A Discharge Recommendation: [facility] Facility Assessment IMPRESSION: [...] Problem List Diagnosis Date Noted Moderate malnutrition ([facility]/HCC) ([facility]) 12/14/2024 Fall, initial encounter 12/09/2024 Fall (on)(from) sidewalk curb, initial encounter 12/09/2024 End stage congestive heart failure ([facility]) 11/13/2024 Wound dehiscence 11/12/2024 Seizures ([facility]) 11/02/2024 ESRD (end stage renal disease) ([facility]) 11/02/2024 Dialysis patient ([facility]) 11/02/2024 Sepsis, due to unspecified organism, unspecified whether acute organ dysfunction present ([facility]) 10/22/2024 Edema of left lower extremity 10/05/2024 COVID-19 09/14/2024 Shortness of breath 03/02/2024 Pulmonary edema, acute ([facility]) 02/19/2024 Gastrointestinal hemorrhage, unspecified gastrointestinal hemorrhage type [...] to demonstrate decreased risk of falling. Start: 09/16/25 Expected End: 01/18/25 Balance Patient will maintain [...] a [facility] Therapy Services Physical Therapist. Goals and/or treatment [...] 01/25/2024 Performed by Chrissy Gilman MD at [facility] ENDOSCOPY IR CVC TUNNELED DIALYSIS CATHETER PLACEMENT 02/27/2022 IR CVC TUNNELED CATHETER PLACEMENT 02/27/2022 Candis Andrade MD [facility] SPECIAL PROCEDURES IR EMBOLIZATION 01/24/2024 IR EMBOLIZATION 01/24/2024 Jovan Glynn MD [facility] SPECIAL PROCEDURES VASCULAR SURGERY Left [...] ,ESRD on HD ,AV graft placement (Dr. Rojas 2022), excision of infected LUE AV graft [...] wants to go home when she is ready" On 12/11 daughter noted not answering questions [...] Medical History[1] LABS: CBC: Recent Labs 12/17/24 0812/17/24222012/18/2441912/18/24 0912/18/24200512/19/24 0027 WBC 12.8* -- 19.3* -- -- [...] this interval not displayed. BMP: Recent Labs 12/17/24 0812/18/24 0420 12/19/24 0027 NA 128* 128* 135* K 4.0 4.4 3.9 CL 95* 97* 102 CO2 BUN 14 18 11 CREATININE 2.91* 3.46* 2.25* GLUCOSE 110 89 73* CALCIUM 7.3* 7.3* 7.3* ANIONGAP 7 6 8 LIVER PROFILE: Recent Labs 12/17/24 0812/18/24 0420 12/19/24 0027 AST 41* 51* 49* ALT 8 6 <6 BILITOT 0.5 0.5 0.5 ALKPHOS 130 136 144 PROT 5.6* 5.5* 5.3* PT/INR: Recent Labs 12/17/24 0813 PROTIME 13.0* INR 1.2* CARDIAC ENZYMES: No results for input(s): "TROPONINI" in the last 72 hours. Procalcitonin: No results found for: "PROCAL" COVID-19 PCR: No results for input(s): "COVID19" in the last 72 hours. Encounter Date: 12/08/24 ECG 12 lead Result Value Heart Rate 94 QRSD Interval 72 QT Interval 360 QTC Interval 451 P [place] 61 QRS [place] 20 T Wave [place] 19 KS Interval 121 Impression Sinus rhythm [...] (97.7 F) (Temporal) Resp 16 Ht 5' 4.57" (1.64 m) Wt 116 lb 4.8 oz [...] MD Division of Hospitalist Medicine Inpatient Medical Services[place] [place]1] Past Medical History: [...] Radha Kevin, DO, 10 mg at 12/18/24 185 levETIRAcetam in sodium chloride (Keppra) IVPB 500 mg, 500 mg, IntraVENous, Daily, Jeane Carlson, TOOL ROOM ATTENDANT - 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, Stopped at 12/18/24 1950 Lidocaine 4 % patch 1 patch, 1 patch, TransDERmal, Daily, Radha Kevin, DO melatonin tablet 5 mg, 5 mg, Oral, Nightly PRN, Eileen Duncan, TOOL ROOM ATTENDANT - 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, 5 mg at 12/15/242055 naloxone (Narcan) injection [...] g, 17 g, Oral, Daily PRN, John Victor Manuel Pentz, DO, 17 g at 12/10/24 1204 pregabalin (Lyrica) capsule 25 mg, 25 mg, Oral, BID PRN, Radha Devinzmin, DO, 25 mg at 12/11/24 1052 QUEtiapine (SEROquel) tablet 12.5 mg, 12.5 mg, Oral, BID PRN, PARK Christiansen 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 sodium chloride 0.9 % infusion, 5-250 mL/hr, [...] PRN, PARK Colin CNP, Given at 12/13/24 174 thiamine (Vitamin B1) 500 mg in sodium chloride 0.9 % 100 mL IVPB, 500 mg, IntraVENous, TID, Leticia Leonardo DO, Stopped at 12/18/24 214 [3] Past Medical History: Diagnosis Date Chronic kidney disease (CKD) Hemodialysis patient (CMS/HCC) (HCC) Wednesday, , Wednesday History of blood transfusion 02/27/2022 Hypertension Seizure (HCC) Developed seizure-like activity on 02/24 during hospital admission Vancomycin therapy has been discontinued by Dr. Shamar Bearden on 12/18/24. Thank you for the consult. Pharmacy signing off for vancomycin dosing. Jess Byrd [facility]ly [facility], Date: 12/18/24 Time: 3:54 PM CRISTO following [...] needed to determine the need for possible terminal gauger supervisor IV. Thank you for allowing me to [...] (Temporal) Resp 16 Ht 1.64 m (5' 4.57") Wt 52.8 kg (116 lb 4.8 oz) [...] any questions or concerns Sean Castaneda MD [facility] - Infectious Diseases Attending Progress [...] CO2 25 12/18/2024 0420 BUN 18 12/18/2024 042 CREATININE 3.46 (H) 12/18/2024 042 GLUCOSE 89 12/18/2024 042 CALCIUM 7.3 (L) 12/18/2024 042 PROT 5.5 (L) 12/18/2024 042 BILITOT 0.5 12/18/2024 042 ALKPHOS 136 12/18/2024 042 AST 51 (H) 12/18/2024 042 ALT 6 12/18/2024 042 PROCAL 68.03 (H) 10/05/2024 1419 PROCAL 19.25 (H) 09/15/2024 0308 PROCAL 76.25 (H) 09/14/2024 0541 Lab Results Component Value Date/Time WBC 19.3 (H) 12/18/2024 042 HGB 8.8 (L) 12/18/2024 0907 HGB 9.3 12/11/2024 2030 HCT 25.1 (L) 12/18/2024 0907 PLT 327 12/18/2024419 LYMPHOPCT 9.0 (L) 12/14/2024 024 LYMPHOPCT 8 (L) 11/01/2024 0317 MONOPCT 7.6 12/14/2024 0240 MONOPCT 2 (L) 11/01/2024 0317 BASOPCT 0.8 12/14/2024 024 BASOPCT 1 11/01/2024 031 NEUTROABS 10.4 (H) 12/14/2024 0240 Micro: 12/12 [...] determined Orthopaedic surgery will follow. Please page dictaphone typist orthopaedic resident for questions or concerns. Radiology reports reviewed. C3-4 findings felt to be degenerative, and not infectious. No plan for biopsy. Patient may follow up as needed with Dr. Benito for her neck pain. Additionally, several attempts have been made at spine exam, but these have not been successful given patient's ongoing altered mental status. Please page ortho resident dictaphone typist if/when patient mentation improves so that a formal spine exam may be performed. Orthopaedic surgery will sign off. Please page dictaphone typist orthopaedic resident for questions or concerns. Hospitalist Progress Note 12/18/2024 Subjective: Admit Date: 12/08/2024 PCP: Roxie Spain Room#: [id number] A BRIEF HOSPITAL COURSE: Per previous hospitalist's note: Apoorva is a 73 y.o. female with past medical history hx seizure ( 2021 a/w HTN encephalopathy) ,ESRD on HD ,AV graft placement (Dr. Rojas 2022), excision of infected LUE AV graft [...] wants to go home when she is ready" On 12/11 daughter noted not answering questions [...] Intake/Output Summary (Last 24 hours) at 12/18/2024 0921 Last data filed at 12/17/2024 2102 Gross per 24 hour Intake 1001.58 ml Output -- Net 1001.58 ml Past Medical History: Medical History[1] LABS: CBC: Recent Labs 12/17/24 0033 12/17/24 0813 12/17/24 2221 12/18/24 0420 12/18/24 0907 WBC 11.3* 12.8* -- 19.3* -- RBC 1.39* 1.39* -- 2.92* -- HGB 4.1* 4.2* 9.6* 9.0* 8.8* HCT 12.6* 12.6* 27.1* 25.3* 25.1* MCV 90.6 90.6 -- 86.6 -- RDW 17.6* 17.6* -- 14.9 -- PLT 322 350 -- 327 -- BMP: Recent Labs 12/16/24191412/17/24 0827 12/18/24 0420 NA 128* 128* 128* K 4.3 4.0 4.4 CL 98 95* 97* CO2 25 26 25 BUN 10 14 18 CREATININE 2.66* 2.91* 3.46* GLUCOSE 146* 110 89 CALCIUM 7.4* 7.3* 7.3* ANIONGAP 5 7 6 LIVER PROFILE: Recent Labs 12/16/24191412/17/24 0827 12/18/24 0420 AST 45* 41* 51* ALT 12 8 6 BILITOT 0.5 0.5 0.5 ALKPHOS 139 130 136 PROT 5.9* 5.6* 5.5* PT/INR: Recent Labs 12/17/24 0813 PROTIME 13.0* INR 1.2* CARDIAC ENZYMES: No results for input(s): "TROPONINI" in the last 72 hours. Procalcitonin: No results found for: "PROCAL" COVID-19 PCR: No results for input(s): "COVID19" in the last 72 hours. Objective: Vitals: BP (!) 164/86 (BP Location: Right arm, Patient Position: Lying) Pulse 111 Temp 36.7 C (98.1 F) (Temporal) Resp 18 Ht 5' 4.57" (1.64 m) Wt 116 lb 4.8 oz [...] Emergency Contact: Deshawn Crystal Mobile Relation: Brother Elementary School Teacher'S Aide needed? No Secondary Emergency Contact: Edward Ruggiero Mobile Relation: Significant Other Preferred language: [employer] Teacher'S Aide needed? No Leticia Leonardo DO [facility] [1] Past Medical History: Diagnosis Date Chronic [...] on MRI with sedation plan for today [facility] Geriatric Medicine Inpatient Consult Service Admission Date: [...] for pain --QTc= 451 ms on 12/11/24 --Benton PRN Seroquel for ONLY if danger to [...] PT/OT eval --Anticipate d/c to return to [facility] --Vitamin D 60 --Check orthostatic vital signs as able --Palliative care following for ongoing goals of care conversations --Executive Admin- supplements ordered BID Acute pain due to [...] level 11.3 -As a new medication with TONE ARTIST APPRENTICE activity, sertraline may be a contributor to [...] year-old female admitted to acute care from [facility] for fall on 12/08. Patient reportedly [...] or leading up to hospitalization. Reports pain "everywhere" this morning. Nods "yes" when asked if she slept overnight. Patient [...] (98.1 F) (Temporal) Resp 18 Ht 5' 4.57" (1.64 m) Wt 116 lb 4.8 oz [...] PM Result Value Ref Range PRODUCT CODE X6873J45 Unit Number [id number] Unit ABO O Unit RH POS Crossmatch interpretation COMP Dispense Status Transfused Blood Expiration Date Product Blood Type 5100 Unit Volume 300 mL PRODUCT CODE P7574G61 Unit Number [id number] Unit ABO O Unit RH POS Crossmatch interpretation COMP Dispense Status Transfused Blood Expiration Date [id number] Product Blood Type 5100 Unit Volume 300 mL PRODUCT CODE [id number] Unit Number [id number] Unit ABO O Unit RH POS Crossmatch interpretation COMP Dispense Status Transfused Blood Expiration Date [id number] Product Blood Type 5100 Unit Volume 300 [...] 0.83 12/13/2024 Lab Results Component Value Date [id number] 1,419 (H) 12/13/2024 Lab Results Component Value [...] 1 mg, 1 mg, IntraMUSCular, PRN, Ramonita R Hukill, DRYING CAN WORKER glucose oral gel 15 g, 15 g, Oral, PRN, Ramonita Garnett, DRYING CAN WORKER heparin injection 1,200-2,000 Units, 1,200-2,000 Units, IntraCATHeter, [...] Chris Verdugo MD, 0.5 mg at 12/18/24 0910 labetalol (Normodyne,Trandate) injection 10 mg, 10 mg, IntraVENous, q6h PRN, Radha Kevin, DO, 10 mg at 12/15/242055 levETIRAcetam (Keppra) tablet 500 mg, 500 mg, Oral, Daily, John Stuartz, DO, 500 mg at 12/16/24 09 Lidocaine 4 % patch 1 patch, 1 patch, TransDERmal, Daily, Radha Paredesmin DO melatonin tablet 5 mg, 5 mg, Oral, Nightly PRN, Eileen Duncan, TOOL ROOM ATTENDANT - 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, 5 mg at 12/15/242055 meropenem (Merrem) 1,000 mg in sodium chloride 0.9 % 100 mL IVPB, 1,000 mg, IntraVENous, q12h, Shamar Bearden MD, Stopped at 12/18/24 0310 naloxone (Narcan) [...] infusion, 250 mL/hr, IntraVENous, PRN, Ramonita Garnett, DRYING CAN WORKER sodium chloride 0.9 % infusion, 250 mL/hr, IntraVENous, PRN, Leticia Leonardo, DO sodium chloride 0.9% (NS) flush 5-40 mL, 5-40 mL, IntraVENous, q12h, John Stuartz, DO, 10 mL at 12/18/24 0628 sodium [...] (Sublimaze) injection, , IntraVENous, PRN, Kanu Colmenares DRIVER'S EDUCATION INSTRUCTOR, 25 mcg at 12/18/24 1105 propofol (Diprivan) [...] Daily, John Shepherd DO, 1 capsule at 12/16/24 09 cholecalciferol (Vitamin D-3) tablet 5,000 Units, 5,000 [...] Units, 1,200-2,000 Units, IntraCATHeter, PRN, Jose G Ramirez, DO, 2,100 Units at 12/14/24 1245 [Held [...] 5 mg, Oral, Nightly PRN, Eileen Duncan, TOOL ROOM ATTENDANT - 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, 5 mg at 12/15/242055 meropenem (Merrem) 1,000 mg in sodium chloride 0.9 % 100 mL IVPB, 1,000 mg, IntraVENous, q12h, Shamar Bearden MD, Last Rate: 33.3 mL/hr at 12/17/24 [...] g, 17 g, Oral, Daily PRN, John Victor Manuel Pentz, DO, 17 g at 12/10/24 1204 pregabalin (Lyrica) capsule 25 mg, 25 mg, Oral, BID PRN, Radha Kuzmin, DO, 25 mg at 12/11/24 1052 QUEtiapine (SEROquel) tablet 12.5 mg, 12.5 mg, Oral, BID PRN, PARK Christiansen 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 sodium chloride 0.9 % infusion, 250 mL/hr, IntraVENous, PRN, John Benitez Pentz, DO sodium chloride 0.9 % infusion, 5-250 mL/hr, IntraVENous, PRN, John Victor Manuel Pentz, DO sodium chloride 0.9 % infusion, 250 mL/hr, IntraVENous, PRN, Ramonita Garnett NP sodium chloride 0.9 % infusion, 250 mL/hr, IntraVENous, PRN, Leticia Rhodesire, DO sodium chloride 0.9% (NS) flush 5-40 [...] IntraVENous, TID, Leticia Malissa, DO, Stopped at 12/17/24 0830 vancomycin (Vancocin) intermittent dosing (placeholder), , Other, RX Placeholder, Radha Kevin DO Hospitalist Progress Note 12/17/2024 Subjective: Admit Date: 12/08/2024 PCP: Roxie Spain Room#: [id number] A BRIEF HOSPITAL COURSE: Per previous hospitalist's note: Apoorva is a 73 y.o. female with past medical history hx seizure ( 2021 a/w HTN encephalopathy) ,ESRD on HD ,AV graft placement (Dr. Rojas 2022), excision of infected LUE AV graft [...] wants to go home when she is ready" On 12/11 daughter noted not answering questions [...] +confused but knows year, month, and at [facility]. +restless. Reports diffuse pain but otherwise [...] History: Medical History[1] LABS: CBC: Recent Labs 12/16/241912/17/243212/17/24812 WBC 10.3 11.3* 12.8* RBC 2.76* 1.39* 1.39* HGB 8.2* 4.1* 4.2* HCT 24.9* 12.6* 12.6* MCV 90.2 90.6 90.6 RDW 17.2* 17.6* 17.6* PLT 394 322 350 BMP: Recent Labs 12/16/241912/16/24191412/17/2427 NA 132* 128* 128* K 4.0 4.3 4.0 CL 99 98 95* CO2 BUN 7* 10 14 CREATININE 1.99* 2.66* 2.91* GLUCOSE 98 146* 110 CALCIUM 7.5* 7.4* 7.3* ANIONGAP 8 5 7 LIVER PROFILE: Recent Labs 12/16/241912/16/24191412/17/24 0827 AST 52* 45* 41* ALT 13 12 8 BILITOT 0.4 0.5 0.5 ALKPHOS 147 139 130 PROT 6.4 5.9* 5.6* PT/INR: Recent Labs 12/17/24 0813 PROTIME 13.0* INR 1.2* CARDIAC ENZYMES: No results for input(s): "TROPONINI" in the last 72 hours. Procalcitonin: No results found for: "PROCAL" COVID-19 PCR: No results for input(s): "COVID19" in the last 72 hours. Objective: Vitals: BP 123/76 Pulse 109 Temp 36.1 C (96.9 F) (Temporal) Resp 18 Ht 5' 4.57" (1.64 m) Wt 116 lb 4.8 oz [...] needed ESRD on hemodialysis - Dialysis on M/W/ -Nephrology following Hypertensive urgency -As needed labetalol Seizure disorder -Continue home Keppra Left hip pain -X-rays with no acute abnormality Hypokalemia - resolved Hyponatremia - moderate, expect improvement with dialysis tomorrow Advance Directive: DNR-CCA Anticipated Discharge - Date - DC [facility] 12/19 Extended Emergency Contact Information Primary Emergency Contact: Deshawn Crystal Mobile Relation: Brother Elementary School Teacher'S Aide needed? No Secondary Emergency Contact: Edward Ruggiero Mobile Relation: Significant Other Preferred language: [employer] Teacher'S Aide needed? No Leticia Leonardo DO Division of Hospitalist Medicine [facility] [1] Past Medical History: Diagnosis Date Chronic kidney disease (CKD) Hemodialysis patient (CMS/HCC) (HCC) Wednesday, , Wednesday History of blood transfusion 02/27/2022 Hypertension Seizure ([facility]) Developed seizure-like activity on 02/24 during hospital [...] ESRD on HD, AVG placement (2022, Dr. Rojas), excision of infected graft and evacuation of hematoma, chronic anemia, HTN, seizure disorder, A-Fib (no anticoagulation noted on chart) who presents with c/f discitis and AMS. Surgery was consulted for evaluation of above. Patient unable to provide any history given encephalopathy. Ernestine bedside explained that her mental status has [...] (96.9 F) (Temporal) Resp 18 Ht 5' 4.57" (1.64 m) Wt 116 lb 4.8 oz (52.8 kg) SpO2 100% BMI 19.61 kg/m INTAKE/OUTPUT: Intake/Output Summary (Last 24 hours) at 12/17/2024926 Last data filed at 12/17/2024 0605 Gross [...] from last 7 days Lab Units 12/17/24 0812/17/24 0033 12/16/24 0020 WBC AUTO 10*3/uL 12.8* 11.3* 10.3 HEMOGLOBIN g/dL 4.2* 4.1* 8.2* HEMATOCRIT % 12.6* 12.6* 24.9* PLATELETS 10*3/uL 350 322 394 Results from last 7 days Lab Units 12/17/2482612/16/24191412/16/24 0020 SODIUM mmol/L 128* 128* 132* POTASSIUM mmol/L 4.0 4.3 4.0 CHLORIDE mmol/L 95* 98 99 CO2 mmol/L 26 25 25 BUN mg/dL 14 10 7* CREATININE mg/dL 2.91* 2.66* 1.99* GLUCOSE mg/dL 110 146* 98 CALCIUM mg/dL 7.3* 7.4* 7.5* Results from last 7 days Lab Units 12/17/2482612/16/24191412/16/24 0020 ALK PHOS U/L 130 139 147 [...] Sex: female Ht: Height: 164 cm (5' 4.57") TBW: Weight: 52.8 kg (116 lb 4.8 [...] 8:36 AM Mariposa Hidalgo PharmD (available on [employer]) [facility] PROGRESS NOTE Subjective Interval [...] 0020 12/15/24 0802 12/14/24 0240 12/11/24 0225 12/10/24 0542 SODIUM mmol/L 132* < > 130* [...] 650 mg, 650 mg, Rectal, q4h PRN, Radhajacquelyn Paredesmin, DO acetaminophen (Tylenol) tablet 1,000 mg, 1,000 mg, Oral, q8h, Rahda Kevin, DO, 1,000 mg at 12/14/24 0540 [...] 40 mg, 40 mg, Oral, Nightly, John Stuartz, DO, 40 mg at 12/15/242055 B complex-vitamin C-folic acid (Nephrocaps) capsule 1 capsule, 1 capsule, Oral, Daily, John Benitez Pentz, DO, 1 capsule at 12/16/24901 cholecalciferol (Vitamin D-3) tablet 5,000 Units, 5,000 Units, Oral, Daily, John Victor Manuel Pentz, DO, 5,000 Units at 12/16/24 09 dextrose [...] Daily, John Stuartz, DO, 500 mg at 12/16/24901 Lidocaine 4 % patch 1 patch, 1 patch, TransDERmal, Daily, Radha Paredesmin, DO melatonin tablet 5 mg, 5 mg, Oral, Nightly PRN, Eileen Duncan, PARK - 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, 5 mg at 12/15/242055 meropenem (Merrem) 1,000 mg in sodium chloride 0.9 % 100 mL IVPB, 1,000 mg, IntraVENous, q12h, Shamar Bearden MD, Last Rate: 33.3 mL/hr at 12/16/24 [...] infusion, 250 mL/hr, IntraVENous, PRN, Ramonita Garnett, DRYING CAN WORKER sodium chloride 0.9% (NS) flush 5-40 mL, 5-40 mL, IntraVENous, q12h, John Shepherd, DO, 10 mL at 12/16/24 0512 sodium [...] Sex: female Ht: Height: 164 cm (5' 4.57") TBW: Weight: 52.8 kg (116 lb 4.8 [...] 11:04 AM Mariposa Hidalgo PharmD (available on [employer]) Hospitalist Progress Note 12/16/2024 Subjective: Admit Date: 12/08/2024 PCP: Roxie Spain Room#: [id number] A BRIEF HOSPITAL COURSE: Per previous hospitalist's note: Apoorva is a 73 y.o. female with past medical history hx seizure ( 2021 a/w HTN encephalopathy) ,ESRD on HD ,AV graft placement (Dr. Rojas 2022), excision of infected LUE AV graft [...] wants to go home when she is ready" On 12/11 daughter noted not answering questions [...] 9 9 8 LIVER PROFILE: Recent Labs 12/14/2423912/15/2480112/16/24 0020 AST 50* 53* 52* ALT 13 14 13 BILITOT 0.4 0.4 0.4 ALKPHOS 131 146 147 PROT 6.2* 6.5 6.4 PT/INR: No results for input(s): "PROTIME", "INR" in the last 72 hours. CARDIAC ENZYMES: No results for input(s): "TROPONINI" in the last 72 hours. Procalcitonin: No results found for: "PROCAL" COVID-19 PCR: No results for input(s): "COVID19" in the last 72 hours. Objective: Vitals: BP 123/76 Pulse 110 Temp 36.4 C (97.6 F) (Temporal) Resp 19 Ht 5' 4.57" (1.64 m) Wt 116 lb 4.8 oz [...] bleeding ESRD on hemodialysis - Dialysis on M/W/F -Nephrology following Hypertensive urgency -As needed labetalol Seizure disorder -Continue home Keppra Left hip pain -X-rays with no acute abnormality Hypokalemia - resolved Hyponatremia - mild Advance Directive: DNR-CCA Anticipated Discharge - Date - [facility] 12/19 Extended Emergency Contact Information Primary Emergency Contact: Deshawn Crystal Mobile Relation: Brother Elementary School Teacher'S Aide needed? No Secondary Emergency Contact: Edward Ruggiero Mobile Relation: Significant Other Preferred language: [employer] Teacher'S Aide needed? No Leticia Leonardo DO Division of Hospitalist Medicine Acute care [facility] [1] Past Medical History: Diagnosis Date Chronic kidney disease (CKD) Hemodialysis patient ([facility]) (HCC) Wednesday, , Wednesday History of blood [...] (Temporal) Resp 18 Ht 1.64 m (5' 4.57") Wt 52.8 kg (116 lb 4.8 oz) [...] any questions or concerns Pipe Soto MD [facility] [place] [phone] [facility] Geriatric Medicine Inpatient Consult Service Admission Date: [...] for pain --QTc= 451 ms on 12/11/24 --Benton PRN Seroquel for ONLY if danger to [...] PT/OT eval --Anticipate d/c to return to [facility] --Vitamin D 60 --Check orthostatic vital signs as able --Palliative care following for ongoing goals of care conversations --Executive Admin- supplements ordered BID Acute pain due to [...] hemodialysis sessions. -As a new medication with TONE ARTIST APPRENTICE activity, sertraline may be a contributor to [...] year-old female admitted to acute care from [facility] for fall on 12/08. Patient reportedly [...] asked if she has pain. Patient states "have a good day". Spoke to RN with no reported agitation. Awaiting sedated MRI this afternoon. Review of Systems Unable to perform ROS: Mental status change Objective BP 149/84 Pulse 86 Temp 37.1 C (98.8 F) (Temporal) Resp 18 Ht 5' 4.57" (1.64 m) Wt 116 lb 4.8 oz [...] 0.83 12/13/2024 Lab Results Component Value Date [id number] 1,419 (H) 12/13/2024 Lab Results Component Value [...] Daily, Radha Kuzmin, DO, 10 mg at 12/14/24 08 atorvastatin (Lipitor) tablet 40 mg, 40 mg, Oral, Nightly, John Benitez Pentz, DO, 40 mg at 12/13/242201 B complex-vitamin C-folic acid (Nephrocaps) capsule 1 capsule, 1 capsule, Oral, Daily, John Shepherd, DO, 1 capsule at 12/14/24 0801 cholecalciferol (Vitamin D-3) tablet 5,000 Units, 5,000 Units, Oral, Daily, John Shepherd, DO, 5,000 Units at 12/14/24 0801 dextrose [...] 15 g, 15 g, Oral, PRN, Ramonita Garnett, BRAYDEN heparin injection 1,200-2,000 Units, 1,200-2,000 Units, IntraCATHeter, [...] PRN, Radha Kevin DO, 10 mg at 12/15/24 0844 levETIRAcetam (Keppra) tablet 500 mg, 500 mg, Oral, Daily, John Benitez Pentz, DO, 500 mg at 12/14/24 0801 Lidocaine 4 % patch 1 patch, 1 patch, TransDERmal, Daily, Radha Paredesmin, DO melatonin tablet 5 mg, 5 mg, Oral, Nightly PRN, Eileen Duncan, TOOL ROOM ATTENDANT - 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, 5 mg at 12/13/24 2202 meropenem (Merrem) 1,000 mg in sodium chloride 0.9 % 100 mL IVPB, 1,000 mg, IntraVENous, q12h, Shamar Bearden MD, Last Rate: 33.3 mL/hr at 12/15/24 [...] 12.5 mg, Oral, BID PRN, Eileen Duncan, TOOL ROOM ATTENDANT - 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 sodium chloride 0.9 % infusion, 250 mL/hr, [...] from the original note were not included. [facility] Wound Care Progress Note Apoorva Gonzalez [...] (Temporal) Resp 18 Ht 1.64 m (5' 4.57") Wt 52.8 kg (116 lb 4.8 oz) [...] (H) 12/15/2024 PT/INR: No results found for: "PROTIME", "INR" Prealbumin: No results found for: PREALBUMIN Albumin:No components found for: LABALBU Sed Rate:No results found for: SEDRATE Micro: No components found for: BC Assessment/Plan: Nursing staff to perform dressing change: Left buttock stage 3 pressure injury (POA): -cleanse with soap and water, apply ET mix TID and PRN, leave JERSEY -P500 bed -waffle chair cushion -Q2hr/PRN turns -glide sheets for T&R -continence checks Q1-2 Hrs/PRN Nutritional support Wound Care to follow Recommend to follow up at [facility] wound care center after hospital discharge. Any questions or concerns please secure chat "[facility] wound/ostomy". Thank you for the consult! I personally [...] 01/25/2024 Performed by Chrissy Gilman MD at [facility] ENDOSCOPY IR CVC TUNNELED DIALYSIS CATHETER PLACEMENT 02/27/2022 IR CVC TUNNELED CATHETER PLACEMENT 02/27/2022 Candis Andrade MD [facility] SPECIAL PROCEDURES IR EMBOLIZATION 01/24/2024 IR EMBOLIZATION 01/24/2024 Jovan Glynn MD [facility] SPECIAL PROCEDURES VASCULAR SURGERY Left [...] Admit Date: 12/08/2024 PCP: Roxie Spain Room#: [id number] A BRIEF HOSPITAL COURSE: Per previous hospitalist's note: Apoorva is a 73 y.o. female with past medical history hx seizure ( 2021 a/w HTN encephalopathy) ,ESRD on HD ,AV graft placement (Dr. Rojas 2022), excision of infected LUE AV graft [...] wants to go home when she is ready" On 12/11 daughter noted not answering questions [...] Intake/Output Summary (Last 24 hours) at 12/15/2024 0737 Last data filed at 12/15/2024 0309 Gross per 24 hour Intake 1661.64 ml Output -- Net 1661.64 ml Past Medical History: Medical History[1] LABS: CBC: Recent Labs 12/13/244412/14/24 0240 WBC 16.5* 13.1* RBC 2.75* 2.56* HGB 8.0* 7.5* HCT 25.3* 23.6* MCV 92.0 92.2 RDW 17.6* 17.2* PLT 312 305 BMP: Recent Labs 12/13/244412/14/24 0240 NA 134* 130* K 4.2 3.7 CL 100 96* CO2 25 25 BUN 22 26* CREATININE 3.82* 4.37* GLUCOSE 47* 95 CALCIUM 7.8* 7.5* ANIONGAP 9 9 LIVER PROFILE: Recent Labs 12/14/24 0240 AST 50* ALT 13 BILITOT 0.4 ALKPHOS 131 PROT 6.2* PT/INR: No results for input(s): "PROTIME", "INR" in the last 72 hours. CARDIAC ENZYMES: No results for input(s): "TROPONINI" in the last 72 hours. Procalcitonin: No results found for: "PROCAL" COVID-19 PCR: No results for input(s): "COVID19" in the last 72 hours. Objective: Vitals: BP (!) 178/89 (BP Location: Right arm, Patient Position: Lying) Pulse 74 Temp 36.3 C (97.3 F) (Temporal) Resp 16 Ht 5' 4.57" (1.64 m) Wt 116 lb 4.8 oz [...] Directive: DNR-CCA Anticipated Discharge - Date - [facility] 12/18 Extended Emergency Contact Information Primary Emergency Contact: Deshawn Crystal Mobile Relation: Brother Elementary School Teacher'S Aide needed? No Secondary Emergency Contact: Edward Ruggiero Mobile Relation: Significant Other Preferred language: [employer] Teacher'S Aide needed? No Leticia Leonardo DO Division of Hospitalist Medicine Acute care [facility] [1] Past Medical History: Diagnosis [...] F) Resp 16 Ht 1.64 m (5' 4.57") Wt 52.8 kg (116 lb 4.8 oz) [...] lower extremity edema Data: Labs: Recent Labs 12/12/24 0103 12/13/24 0045 12/14/24 0240 WBC 11.5* 16.5* 13.1* [...] or concerns Pipe Soto MD [facility] [place] [phone] Spiritual Care Note [facility] Palliative Care Patient Name:Apoorva Gonzalez Chief Complaint: Chief Complaint Patient presents with Fall Pt presents to ED for mechanical fall while at dinner. Pt family states pt fell backwards and hit her head and now has lump on head, denies LOC. Denies blood thinners. 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 Please reach out to dictaphone typist provider if more urgent follow up is necessary. Assessment/Plan Goals of care - Apoorva Gonzalez lacks capacity for medical decision-making due to encephalopathy. - legal surrogate decision maker is HCPOA, Brother Deshawn Crystal ( ) Alternate is s/o Edward Ruggiero [phone]) -goals of care include: 1) Goal is [...] History of seizures - remains on home [facility] Palliative Care Encounter -Code Status: DNR-CCA - will continue to follow for ongoing monitoring of progression of encephalopathy as well as for appropriateness for hospice care due to ESRD, sepsis, encephalopathy - was residing at [facility] Time Stamp: Total of 50 minutes spent [...] Management Advanced Directives: Health Care Power of It Admin, DNR Functional Assessment: PPS 40% mainly in bed; can't do any work/extensive disease; mainly assistance; normal or reduced intake; full or drowsy or confusion Prognosis: uncertain at this time Spiritual Assessment: No spiritual distress identified Bereavement and Grief: To Be Determined PDMP/OARRS Reviewed: Yes-reviewed Social history: Marital status: Children: unknown Living status: [facility] Work history: unknown status: No Pentecostalism: None ROS: See palliative care ROS/ESAS below; Detail ROS unable to be obtained due to patient's mental status Powersite Symptom Assessment Score Powersite Score Pain Score (if non-verbal, add .FLACC [...] relaxed Total Score: 3 Family Meeting: Participants: GENET Family meeting was held to discuss:Diagnosis and Prognosis, Goals of Care, Treatment Options, Symptom Management, Advanced Care Planning, and Prior Expressed Wishes Objective: BP (!) 185/91 Pulse 102 Temp 36.8 C (98.2 F) Resp 16 Ht 5' 4.57" (1.64 m) Wt 116 lb 4.8 oz [...] Transition Note Initiated: yes Chris Verdugo MD [facility] Geriatric Medicine Inpatient Consult Service Admission Date: [...] for pain --QTc= 451 ms on 12/11/24 --[place] PRN Seroquel for ONLY if danger to [...] PT/OT eval --An[facility] --Vitamin D 60 --Check orthostatic vital signs as able --Palliative care following --Executive Admin- supplements ordered BID Acute pain due to [...] hemodialysis sessions. -As a new medication with TONE ARTIST APPRENTICE activity, sertraline may be a contributor to [...] year-old female admitted to acute care from [facility] for fall on 12/08. Patient reportedly [...] C (98.2 F) Resp 16 Ht 5' 4.57" (1.64 m) Wt 116 lb 4.8 oz [...] 0.83 12/13/2024 Lab Results Component Value Date [id number] 1,419 (H) 12/13/2024 Lab Results Component Value [...] Daily, Radha Kevin, DO, 10 mg at 12/14/24 08 atorvastatin (Lipitor) tablet 40 mg, 40 mg, Oral, Nightly, John Shepherd DO, 40 mg at 12/13/24 2202 B complex-vitamin C-folic acid (Nephrocaps) capsule 1 capsule, 1 capsule, Oral, Daily, John Shepherd DO, 1 capsule at 12/14/24 0801 cholecalciferol (Vitamin D-3) tablet 5,000 Units, 5,000 Units, Oral, Daily, John Shepherd, DO, 5,000 Units at 12/14/24 0801 dextrose 5 % infusion, 100 mL/hr, IntraVENous, PRN, Ramonita Garnett NP, Last Rate: 100 mL/hr at 12/13/24 2242, 100 mL/hr at 12/13/24 2242 dextrose 50 % solution 12.5 g, 12.5 g, IntraVENous, PRN, Ramonita Garnett, DRYING CAN WORKER, 12.5 g at 12/12/24 2230 gadopiclenol (Vueway) injection 5 mL, 5 mL, IntraVENous, Once PRN, Radha Kevin DO glucagon (human recombinant) injection 1 mg, 1 mg, IntraMUSCular, PRN, Ramonita Garnett, BRAYDEN glucose oral gel 15 g, 15 g, Oral, PRN, Ramonita Garnett, DRYING CAN WORKER heparin injection 1,200-2,000 Units, 1,200-2,000 Units, IntraCATHeter, [...] PRN, Radha Kevin, DO, 10 mg at 12/11/241999 levETIRAcetam (Keppra) tablet 500 mg, 500 mg, Oral, Daily, John Shepherd, DO, 500 mg at 12/14/24 0801 Lidocaine 4 % patch 1 patch, 1 patch, TransDERmal, Daily, Radha Kevin DO melatonin tablet 5 mg, 5 mg, Oral, Nightly PRN, Eileen Duncan, TOOL ROOM ATTENDANT - 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, 5 mg at 12/13/24 2202 meropenem (Merrem) 1,000 mg in sodium chloride 0.9 % 100 mL IVPB, 1,000 mg, IntraVENous, q12h, Shamar Bearden MD, Last Rate: 33.3 mL/hr at 12/14/24 [...] g, 17 g, Oral, Daily PRN, John Victor Manuel Pentz, DO, 17 g at 12/10/24 1204 pregabalin (Lyrica) capsule 25 mg, 25 mg, Oral, BID PRN, Radha Kuzmin, DO, 25 mg at 12/11/24 1052 QUEtiapine (SEROquel) tablet 12.5 mg, 12.5 mg, Oral, BID PRN, PARK Christiansen CNP sevelamer carbonate (Renvela) tablet 800 mg, 800 mg, Oral, TID WC, John Benitez Pentz, DO, 800 mg at 12/14/24 0801 sodium chloride 0.9 % infusion, 250 mL/hr, IntraVENous, PRN, John Benitez Pentz, DO sodium chloride 0.9 % infusion, 5-250 mL/hr, IntraVENous, PRN, John Reynagaew Pentz, DO [...] ,ESRD on HD ,AV graft placement (Dr. Rojas 2022), excision of infected LUE AV graft [...] wants to go home when she is ready" On 12/11 daughter noted not answering questions [...] 11 9 9 LIVER PROFILE: Recent Labs 12/12/2410212/14/24 0240 AST 36* 50* ALT 10 13 BILITOT 0.4 0.4 ALKPHOS 131 131 PROT 6.1* 6.2* PT/INR: No results for input(s): "PROTIME", "INR" in the last 72 hours. CARDIAC ENZYMES: No results for input(s): "TROPONINI" in the last 72 hours. Procalcitonin: No results found for: "PROCAL" COVID-19 PCR: No results for input(s): "COVID19" in the last 72 hours. Objective: Vitals: BP 146/89 Pulse 85 Temp 37 C (98.6 F) Resp 16 Ht 5' 4.57" (1.64 m) Wt 116 lb 4.8 oz [...] bleeding ESRD on hemodialysis - Dialysis on M/W/F -Nephrology following - fluid overload on CXR Hypertensive urgency -As needed labetalol Seizure disorder -Continue home Keppra Left hip pain -X-rays with no acute abnormality Hypokalemia - resolved Hyponatremia - mild Advance Directive: DNR-CCA Anticipated Discharge - Date - DC SNF 12/16 Extended Emergency Contact Information Primary Emergency Contact: Deshawn Crystal Mobile Relation: Brother Elementary School Teacher'S Aide needed? No Secondary Emergency Contact: Edward Ruggiero Mobile Relation: Significant Other Preferred language: [employer] Teacher'S Aide needed? No Leticia Leonardo DO Division of Hospitalist Medicine [facility] [1] Past Medical History: Diagnosis Date Chronic [...] from the original note were not included. [facility] Wound Care Progress Note Apoorva Gonzalez [...] resting in bed. At time of visit, transplant coordinator at bedside setting up. Treatment noted. PAST MEDICAL HISTORY Medical History[1] PAST SURGICAL HISTORY Surgical History[2] FAMILY HISTORY Family History[3] SOCIAL HISTORY Social History[4] ALLERGIES Allergies[5] MEDICATIONS Medications Ordered Prior to Encounter[6] REVIEW OF SYSTEMS Pertinent items are noted in HPI. Objective: BP 151/87 Pulse 88 Temp 37 C (98.6 F) Resp 16 Ht 5' 4.57" (1.64 m) Wt 116 lb 4.8 oz [...] (H) 12/14/2024 PT/INR: No results found for: "PROTIME", "INR" Prealbumin: No results found for: PREALBUMIN Albumin:No components found for: LABALBU Sed Rate:No results found for: SEDRATE Micro: No components found for: BC Assessment/Plan: Nursing staff to perform dressing change: Left buttock stage 3 pressure injury (POA): -cleanse with soap and water, apply ET mix TID and PRN, leave JERSEY -P500 bed -waffle chair cushion -Q2hr/PRN turns -glide sheets for T&R -continence checks Q1-2 Hrs/PRN Nutritional support Wound Care to follow Recommend to follow up at [facility] Out[facility] wound care center after hospital discharge. Any questions or concerns please secure chat "[facility] wound/ostomy". Thank you for the consult! I personally [...] 01/25/2024 Performed by Chrissy Gilman MD at [facility] ENDOSCOPY IR CVC TUNNELED DIALYSIS CATHETER PLACEMENT 02/27/2022 IR CVC TUNNELED CATHETER PLACEMENT 02/27/2022 Candis Andrade MD [facility] SPECIAL PROCEDURES IR EMBOLIZATION 01/24/2024 IR EMBOLIZATION 01/24/2024 Jovan Glynn MD [facility] SPECIAL PROCEDURES VASCULAR SURGERY Left [...] from the original note were not included. [facility] - Infectious Diseases Attending Progress [...] 9.3 12/11/2024 2030 HCT 23.6 (L) 12/14/2024 0240 PLT 305 12/14/2024 024 LYMPHOPCT 9.0 (L) 12/14/2024 024 LYMPHOPCT 8 (L) 11/01/2024 031 MONOPCT 7.6 12/14/2024 024 MONOPCT 2 (L) 11/01/2024 0317 BASOPCT 0.8 12/14/2024 024 BASOPCT 1 11/01/2024 0317 NEUTROABS 10.4 (H) 12/14/2024 024 Micro: 12/12/2024 - 2/2 blood cultures show no growth at 48 [...] follow. Yvonne Worrell, PGY-1 Cosigned by Shamar Bearden MD at 12/14/2024 4:44 PM EDT Associated attestation - Shamar Bearden MD - 12/14/2024 4:44 PM EDT [facility] Infectious Disease Attending Note Patient seen and [...] (500 mg) by mouth daily. 03/02/22 12/06/24 PARK Lipscomb CNP magnesium hydroxide (Milk of Magnesia) 2400 MG/10ML [...] 10 min Stress: Stress Concern Present (12/09/2024) [facility] [place] [facility] - Occupational Stress Questionnaire Feeling of Stress : Very much Social Connections: Moderately Integrated (12/09/2024) Social Connection and Isolation Panel [NHANES] Frequency of Communication with Friends and Family: More than three times a week Frequency of Social Gatherings with Friends and Family: Three times a week Attends Latter-Day Services: 1 to 4 times per year [...] (L) 12/13/2024 PT/INR: No results found for: "PT", "INR", "APTT" Type and Screen: No results found for: "RH", "LABANTI" CRP: Lab Results Component Value Date CRP [...] update plan of care accordingly. Please page dictaphone typist orthopaedic resident for questions or concerns. [1] [...] 01/25/2024 Performed by Chrissy Gilman MD at [facility] ENDOSCOPY IR CVC TUNNELED DIALYSIS CATHETER PLACEMENT 02/27/2022 IR CVC TUNNELED CATHETER PLACEMENT 02/27/2022 Candis Andrade MD [facility] SPECIAL PROCEDURES IR EMBOLIZATION 01/24/2024 IR EMBOLIZATION 01/24/2024 Jovan Glynn MD [facility] SPECIAL PROCEDURES VASCULAR SURGERY Left 11/02/2024 EXCISION OF LEFT UPPER EXTREMITY INFECTED GRAFT (JIM) VASCULAR SURGERY Left 11/05/2024 REVISION OR REPAIR, AV FISTULA (IJM) [3] Current Facility-Administered Medications: acetaminophen (Tylenol) tablet 650 mg, 650 mg, Oral, q4h PRN OR Acetaminophen (Tylenol) 650 MG/20.3ML solution 650 mg, 650 mg, Oral, q4h PRN OR acetaminophen (Tylenol) suppository 650 mg, 650 mg, Rectal, q4h PRN, Radha Kuzmin, DO acetaminophen (Tylenol) tablet 1,000 mg, 1,000 mg, Oral, q8h, Radha Kuzmin, DO, 1,000 mg at 12/13/24 05 amLODIPine (Norvasc) tablet 10 mg, 10 mg, Oral, Daily, Radha Kuzmin, DO, 10 mg at 12/13/24 09 atorvastatin (Lipitor) tablet 40 mg, 40 mg, Oral, Nightly, Johnronda Stuartz, DO, 40 mg at 12/12/246 B complex-vitamin C-folic acid (Nephrocaps) capsule 1 capsule, 1 capsule, Oral, Daily, John Shepherd, DO, 1 capsule at 12/13/24 09 cefepime (Maxipime) 1,000 mg in sodium chloride 0.9 % 50 mL IVPB, 1,000 mg, IntraVENous, q12h, Jacob Laguna DO, Stopped at 12/13/24 1329 cholecalciferol (Vitamin D-3) tablet 5,000 Units, 5,000 Units, Oral, Daily, John Benitez Narcisoelva, DO, 5,000 Units at 12/13/24 0912 dextrose [...] Units, 1,200-2,000 Units, IntraCATHeter, PRN, Jose G Alcaladehsarai, DO, 2,100 Units at 12/12/24 1758 [...] 5 mg, Oral, Nightly PRN, Eileen Duncan, TOOL ROOM ATTENDANT - 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 naloxone (Narcan) injection 0.4 mg, 0.4 mg, [...] q12h, John Shepherd DO, 10 mL at 12/12/24 0443 sodium [...] Sex: female Ht: Height: 164 cm (5' 4.57") TBW: Weight: 52.8 kg (116 lb 4.8 oz) BMI: Body mass index is 19.61 kg/m . Lab Results Component Value Date CREATININE 3.82 (H) 12/13/2024 CREATININE 5.60 (H) 12/12/2024 BUN 22 12/13/2024 BUN 38 (H) 12/12/2024 WBC 16.5 (H) 12/13/2024 WBC 11.5 (H) 12/12/2024 DW: 52.8 kg Renal: [x]HD []CRRT []PD [] CrCl ml/min (Cockcroft-Gault, if ROLANDO, no NETWORK ADMIN) Infectious Diagnosis: Bone and joint infection (discitis) [...] 2:03 PM Hilda Wilkes RPh (available on [employer]) Hospitalist Progress Note 12/13/2024 Subjective: Admit Date: 12/08/2024 PCP: Roxie Spain Room#: [id number] A BRIEF HOSPITAL COURSE: Per previous hospitalist's note: Apoorva is a 73 y.o. female with past medical history hx seizure ( 2021 a/w HTN encephalopathy) ,ESRD on HD ,AV graft placement (Dr. Rojas 2022), excision of infected LUE AV graft [...] wants to go home when she is ready" On 12/11 daughter noted not answering questions [...] History[1] LABS: CBC: Recent Labs 12/11/24 0225 12/11/24202912/12/24 0103 12/13/24 0045 WBC 12.1* -- 11.5* [...] 6.5 6.1* PT/INR: No results for input(s): "PROTIME", "INR" in the last 72 hours. CARDIAC ENZYMES: No results for input(s): "TROPONINI" in the last 72 hours. Procalcitonin: No results found for: "PROCAL" COVID-19 PCR: No results for input(s): "COVID19" in the last 72 hours. Objective: Vitals: BP 151/76 Pulse 91 Temp 36.9 C (98.5 F) (Temporal) Resp 18 Ht 5' 4.57" (1.64 m) Wt 116 lb 4.8 oz [...] DNR-CCA Anticipated Discharge - Date - DC [facility] 12/15 Extended Emergency Contact Information Primary Emergency Contact: Deshawn Crystal Mobile Relation: Brother Elementary School Teacher'S Aide needed? No Secondary Emergency Contact: Edward Ruggiero Mobile Relation: Significant Other Preferred language: [employer] Teacher'S Aide needed? No Leticia Leonardo DO Division of Hospitalist Medicine [facility] [1] Past Medical History: Diagnosis Date Chronic kidney disease (CKD) Hemodialysis patient ([facility]) ([facility]) Wednesday, , Wednesday History of blood transfusion 02/27/2022 Hypertension Seizure ([facility]) Developed seizure-like activity on 02/24 during hospital [...] (Temporal) Resp 18 Ht 1.64 m (5' 4.57") Wt 52.8 kg (116 lb 4.8 oz) [...] lower extremity edema Data: Labs: Recent Labs 12/11/24 0225 12/11/24 2030 12/12/24 0103 12/13/24 0045 WBC 12.1* -- 11.5* 16.5* HGB 7.7* 9.3 8.0* 8.0* HCT 23.6* -- 24.8* 25.3* MCV 91.8 -- 92.2 92.0 PLT 300 -- 332 312 Recent Labs 12/11/24 0225 12/12/24 0103 12/13/24 0045 NA 138 137 134* [...] any questions or concerns Pipe Soto MD [facility] [place] [phone] Orthopedic Surgery Progress Note The following x-rays were ordered and subsequently completed. My interpretation is as follows: Left shoulder XR (12/13/24): no acute fracture or dislocation. Moderate degenerative changes of the left glenohumeral joint appreciated Radiology reports to be reviewed. Orthopaedic surgery will follow for MRI completion and update plan as indicated. Please page dictaphone typist orthopaedic resident for questions or concerns. Images from the original note were not included. PHYSICAL THERAPY [facility] Name/MRN: Apoorva Gonzalez ([id number]) Date: 12/13/2024 Plans for MRI with sedation, also has pending shoulder x-rays. Will continue to hold and assess at a later time as able. Guilherme Tavares PT [facility] Geriatric Medicine Inpatient Consult Service Admission Date: [...] 12/12/24 --Await PT/OT eval --Anticipate d/c to TBD, anticipate return to [facility] --Vitamin D 60 --Check orthostatic vital signs as able --Palliative care following --Will consult fishery division chief Acute pain due to trauma -Management per [...] hemodialysis sessions. -As a new medication with TONE ARTIST APPRENTICE activity, sertraline may be a contributor to [...] discussed with RN, geriatric pharmacist, and nephrology DRYING CAN WORKER. Follow-up: will follow with you Subjective Chief Complaint: fall Geriatrics consulted for fall HPI- The patient is known to me. 74 y.o. year-old female admitted to acute care from [facility] for fall on 12/08. Patient reportedly [...] MRI. Patient had a unwitnessed fall overnight. NETWORK ADMIN called and CT head with no acute intracranial abnormalities. floor coverer apprentice placed at bedside. Labs reviewed with sodium [...] be more comfortable than yesterday. Spoke to corporate safety director at bedside with patient moaning. She has not eaten any breakfast. Review of Systems Unable to perform ROS: Mental status change Objective BP 151/76 Pulse 91 Temp 36.9 C (98.5 F) (Temporal) Resp 18 Ht 5' 4.57" (1.64 m) Wt 116 lb 4.8 oz [...] 3.30 09/14/2024 Lab Results Component Value Date [id number] >2,000 (H) 09/14/2024 Lab Results Component Value [...] Daily, Radha Paredesmin, DO, 10 mg at 12/13/24 0911 atorvastatin (Lipitor) tablet 40 mg, 40 mg, Oral, Nightly, John Shepherd, DO, 40 mg at 12/12/24 2116 B complex-vitamin C-folic acid (Nephrocaps) capsule 1 capsule, 1 capsule, Oral, Daily, John Shepherd DO, 1 capsule at 12/13/24 0911 cefepime (Maxipime) 1,000 mg in sodium chloride 0.9 % 50 mL IVPB, 1,000 mg, IntraVENous, q12h, Jacob Laguna DO, Stopped at 12/13/24 1329 cholecalciferol (Vitamin D-3) tablet 5,000 Units, 5,000 Units, Oral, Daily, Johnronda Benitez Rishi, DO, 5,000 Units at 12/13/24 [...] 1 mg, 1 mg, IntraMUSCular, PRN, Ramonita Garnett, BRAYDEN glucose oral gel 15 g, 15 g, [...] day, Leticia Leonardo, DO, 5,000 Units at 12/13/24 1340 hydrALAZINE (Apresoline) injection 10 mg, 10 mg, IntraVENous, q4h PRN, Radha Paredesmin, DO, 10 mg at 12/09/24 1521 HYDROmorphone (Dilaudid) injection 0.25 mg, 0.25 mg, IntraVENous, q4h PRN, Chris Verdugo MD, 0.25 mg at 12/13/24 1341 labetalol (Normodyne,Trandate) injection 10 mg, 10 mg, IntraVENous, q6h PRN, Radha Kevin, DO, 10 mg at 12/11/241999 levETIRAcetam (Keppra) tablet 500 mg, 500 mg, Oral, Daily, John Benitez Pentz, DO, 500 mg at 12/13/24 09 Lidocaine 4 % patch 1 patch, 1 patch, TransDERmal, Daily, Radha Paredesmin, DO melatonin tablet 5 mg, 5 mg, Oral, Nightly PRN, Eileen Duncan, TOOL ROOM ATTENDANT - 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 naloxone (Narcan) injection 0.4 mg, 0.4 mg, [...] Paredesmin, DO, 25 mg at 12/11/24 1052 sevelamer [...] To schedule mri with sedation please call [phone] Images from the original note were not included. OCCUPATIONAL THERAPY [facility] Name/MRN: Apoorva Gonzalez ([id number]) Date: 12/12/2024 Attempt Note Attempted OT eval. Awaiting results of C-spine MRI. ~Jelly Gleason MS, OTR/L [facility] Geriatric Medicine Inpatient Consult Service Admission Date: [...] --Anticipate d/c to TBD, anticipate return to [facility] --Vitamin D 60 --Check orthostatic vital [...] CrCl Plan discussed with RN and nephrology DRYING CAN WORKER. Follow-up: will follow with you Subjective Chief Complaint: fall Geriatrics consulted for fall HPI- The patient is known to me. 74 y.o. year-old female admitted to acute care from [facility] for fall on 12/08. Patient reportedly [...] MRI with HD after. Spoke to Nephrology DRYING CAN WORKER due to mentation concerns and missed HD. Plan for HD today per Karis Stone. Review of Systems Unable to perform ROS: Mental status change Objective BP 149/85 Pulse 94 Temp 36 C (96.8 F) (Temporal) Resp 18 Ht 5' 4.57" (1.64 m) Wt 116 lb 4.8 oz [...] 360 ms QTC Interval 451 ms P [place] 61 degrees QRS [place] 20 degrees T Wave [place] 19 degrees [place] Interval 121 ms Blood [...] 3.30 09/14/2024 Lab Results Component Value Date [id number] >2,000 (H) 09/14/2024 Lab Results Component Value [...] q8h, Radha Kevin, DO, 1,000 mg at 12/12/24 0443 amLODIPine (Norvasc) tablet 10 mg, 10 mg, Oral, Daily, Radha Kevin, DO, 10 mg at 12/12/24 0857 atorvastatin (Lipitor) tablet 40 mg, 40 mg, Oral, Nightly, oJhn Shepherd, , 40 mg at 12/10/24 2124 B complex-vitamin [...] Kevin, DO, 10 mg at 12/09/24 1521 labetalol (Normodyne,Trandate) injection 10 mg, 10 mg, IntraVENous, q6h PRN, Radha Paredesmin, DO, 10 mg at 12/11/241999 levETIRAcetam (Keppra) tablet 500 mg, 500 mg, Oral, Daily, John Stuartz, DO, 500 mg at 12/12/24 0857 Lidocaine 4 % patch 1 patch, 1 patch, TransDERmal, Daily, Radha Paredesmin, DO melatonin tablet 5 mg, 5 mg, Oral, Nightly, John Stuartz, DO, 5 mg at 12/10/24 2124 naloxone [...] Paredesmin, DO, 25 mg at 12/11/24 1052 sertraline (Zoloft) tablet 25 mg, 25 mg, Oral, Daily, Radha Paredesmin, DO, 25 mg at 12/12/24 0856 sevelamer [...] flush 5-40 mL, 5-40 mL, IntraVENous, PRN, Johnronda Benitez Pentz, DO thiamine (Vitamin B1) tablet 250 [...] ,ESRD on HD ,AV graft placement (Dr. Rojas 2022), excision of infected LUE AV graft [...] wants to go home when she is ready" On 12/11 daughter noted not answering questions [...] History: Medical History[1] LABS: CBC: Recent Labs 12/10/2454112/11/2422412/11/24 2030 12/12/24 0103 WBC 10.2 12.1* -- 11.5* RBC 2.51* 2.57* -- 2.69* HGB 7.3* 7.7* 9.3 8.0* HCT 23.2* 23.6* -- 24.8* MCV 92.4 91.8 -- 92.2 RDW 18.6* 18.3* -- 17.8* PLT 293 300 -- 332 BMP: Recent Labs 12/10/2454112/11/2422412/12/24 0103 NA 135* 138 137 K 3.4* [...] 6.5 6.1* PT/INR: No results for input(s): "PROTIME", "INR" in the last 72 hours. CARDIAC ENZYMES: No results for input(s): "TROPONINI" in the last 72 hours. Procalcitonin: No results found for: "PROCAL" COVID-19 PCR: No results for input(s): "COVID19" in the last 72 hours. Objective: Vitals: BP 149/85 Pulse 94 Temp 36 C (96.8 F) (Temporal) Resp 18 Ht 5' 4.57" (1.64 m) Wt 116 lb 4.8 oz [...] Emergency Contact: Deshawn Crystal Mobile Relation: Brother Elementary School Teacher'S Aide needed? No Secondary Emergency Contact: Edward Ruggiero Mobile Relation: Significant Other Preferred language: [employer] Teacher'S Aide needed? No Leticia Leonardo DO Division of Hospitalist Medicine [facility] [1] Past Medical History: Diagnosis Date Chronic [...] original note were not included. PHYSICAL THERAPY [facility] Name/MRN: Apoorva Gonzalez ([id number]) Date: 12/12/2024 Pt with pending MRI noted [...] (Temporal) Resp 18 Ht 1.64 m (5' 4.57") Wt 52.8 kg (116 lb 4.8 oz) [...] lower extremity edema Data: Labs: Recent Labs 12/10/2454112/11/2422412/11/24202912/12/24102 WBC 10.2 12.1* -- 11.5* HGB 7.3* [...] any questions or concerns Pipe Soto MD [facility] [phone] MRI attempted again; pt. Unable to tolerate [...] Sex: female Ht: Height: 164 cm (5' 4.57") TBW: Weight: 52.8 kg (116 lb 4.8 oz) BMI: Body mass index is 19.61 kg/m . Lab Results Component Value Date CREATININE 5.60 (H) 12/12/2024 CREATININE 4.96 (H) 12/11/2024 BUN 38 (H) 12/12/2024 BUN 32 (H) 12/11/2024 WBC 11.5 (H) 12/12/2024 WBC 12.1 (H) 12/11/2024 DW: 52.8 kg Renal: [x]HD []CRRT []PD [] CrCl ml/min (Cockcroft-Gault, if ROLANDO, no NETWORK ADMIN) - to have HD today (did not [...] 8:36 AM Hilda Wilkes RPh (available on [facility]) Images from the original note were not included. OCCUPATIONAL THERAPY [facility] Name/MRN: Apoorva Gonzalez ([id number]) Date: 12/11/2024 OT eval on hold pending MRI c-spine imaging. Will evaluate as appropriate. Leonila Rios OT Hospitalist Progress Note 12/11/2024 Subjective: Admit Date: 12/08/2024 PCP: Roxie Spain Room#: W6-146/W6-048 A Chief Complaint Patient presents with Fall [...] ,ESRD on HD ,AV graft placement (Dr. Rojas 2022), excision of infected LUE AV graft [...] answering any of my questions , repeating " oh lord" appears uncomfortable, unable to find a comfortable position in a chair. This evening daughter is visiting - reports noticeable difference in Apoorva as she is not able to answer any of her questions and not eating Case and plan discussed with patient and bedside nurse. All questions answered. Adult diet Regular 24HR INTAKE/OUTPUT: Intake/Output Summary (Last 24 hours) at 12/11/2024 08 Last data filed at 12/10/2024 1357 Gross per 24 hour Intake 540 ml Output -- Net 540 ml Past Medical History: Medical History[1] LABS: CBC: Recent Labs 12/09/24 10212/10/2454112/11/24224 WBC 9.7 10.2 12.1* RBC 2.56* 2.51* 2.57* HGB 7.6* 7.3* 7.7* HCT 23.5* 23.2* 23.6* MCV 91.8 92.4 91.8 RDW 18.7* 18.6* 18.3* PLT 311 293 300 BMP: Recent Labs 12/09/24102212/10/2454112/11/24224 NA 136 135* 138 [...] 5.7* 6.5 PT/INR: No results for input(s): "PROTIME", "INR" in the last 72 hours. CARDIAC ENZYMES: No results for input(s): "TROPONINI" in the last 72 hours. Procalcitonin: No results found for: "PROCAL" COVID-19 PCR: No results for input(s): "COVID19" in the last 72 hours. 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 No Secondary Emergency Contact: Edward Ruggiero Mobile Relation: Significant Other Preferred language: [employer] Teacher'S Aide needed? No Radha Kevin DO Division of Hospitalist Medicine [facility] [1] Past Medical History: Diagnosis Date Chronic kidney disease (CKD) Hemodialysis patient ([facility]/HCC) (HCC) Wednesday, , Wednesday History of [...] (Temporal) Resp 16 Ht 1.64 m (5' 4.57") Wt 52.8 kg (116 lb 4.8 oz) [...] 91.8 PLT 311 293 300 Recent Labs 12/09/24 1023 12/10/2454112/11/24224 NA 136 135* 138 K 3.1* 3.4* [...] or concerns Pipe Soto MD [facility] [phone] Images from the original note were not included. PHYSICAL THERAPY [facility] Name/MRN: Apoorva Gonzalez ([id number]) Date: 12/11/2024 PT held pending MRI c-spine [...] deltoids) Fluid Accumulation: No significant fluid accumulation Jackerman Strength: Not Performed Nutrition Assessment: 74yo F with PMHx Seizure (2021 a/w HTN encephalopathy), ESRD on HD (MWF) w/ LUE AV Graft Placement (Dr. Rojas 2022) c/b Infection of AV Graft s/p [...] verbal with RD. She endorsed having pain "everywhere," took RD's hand and was squeezing it and stating "oh please" over and over again. RD asked if [...] Total Energy Requirements (kcals/day): 30-35 kcal/kg = 9776-5047 kcal/day Weight Used for Protein Requirements: Other [...] Ordered Anthropometric Measures: Height: 164 cm (5' 4.57") Current Body Weight: 52.8 kg (116 lb 4.8 oz) (12/11 bed) Admission Body Weight: 50.3 kg (111 lb) (12/08 stated) Usual Body Weight: (Most recent EDW 47.1kg (104#) from 09/2024. Wt usually range between 105-121# during admissions since August 2024. Wts prior to that within the past year between 105-112#.) [place] Body Weight (lbs) (Calculated): 123 lbs [place] Body Weight (Kg) (Calculated): 56 kg % [place] Body Weight (Calculated): 94.6 % BMI (kg/m2) [...] soon to determine Lilliana Manning RD Contact: *[phone] [facility] Geriatric Medicine Inpatient Consult Service Admission Date: [...] (98 F) (Temporal) Resp 16 Ht 5' 4.57" (1.64 m) Wt 116 lb 4.8 oz [...] 3.30 09/14/2024 Lab Results Component Value Date [id number] >2,000 (H) 09/14/2024 Lab Results Component Value [...] Daily, Radha Kuzmin, DO, 10 mg at 12/11/24 08 atorvastatin (Lipitor) tablet 40 mg, 40 mg, Oral, Nightly, John Stuartz, DO, 40 mg at 12/10/242123 B complex-vitamin C-folic acid (Nephrocaps) capsule 1 [...] 25 mg, 25 mg, Oral, Daily, Radha Kuzmin, DO, 25 mg at 12/11/24 1052 sevelamer carbonate (Renvela) tablet 800 mg, 800 mg, Oral, TID WC, John Benitez Pentz, DO, 800 mg at 12/11/24 08 sodium chloride 0.9 % infusion, 250 mL/hr, [...] IntraVENous, Once, John Shepherd DO [facility] Nephrology Progress Note Nephrology following for ESRD. Events over night: Two attempts for MRI yesterday unsuccessful due to anxiety BP (!) 191/91 (BP Location: Right arm, Patient Position: Lying) Pulse 94 Temp 36.7 C (98.1 F) (Temporal) Resp 24 Ht 1.64 m (5' 4.57") Wt 50.3 kg (111 lb) SpO2 100% [...] and medication adjustments. Please message me through [employer] chat with any questions or concerns. Jose G Ramirez DO 12/10/2024 2:34 PM [facility] [address] [place] [address] [address] [place] [address] Office: [phone] [1] [START ON 12/11/2024] amLODIPine, 10 mg, [...] ,ESRD on HD ,AV graft placement (Dr. Rojas 2022), excision of infected LUE AV graft [...] History: Medical History[1] LABS: CBC: Recent Labs 12/08/24222812/09/24102212/10/24 0542 WBC 11.2* 9.7 10.2 RBC 2.26* [...] 6.4 5.7* PT/INR: No results for input(s): "PROTIME", "INR" in the last 72 hours. CARDIAC ENZYMES: No results for input(s): "TROPONINI" in the last 72 hours. Procalcitonin: No results found for: "PROCAL" COVID-19 PCR: No results for input(s): "COVID19" in the last 72 hours. 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 No Secondary Emergency Contact: Edward Ruggiero Mobile Relation: Significant Other Preferred language: [employer] Teacher'S Aide needed? No Radha Kevin DO Division of Hospitalist Medicine [facility] [1] Past Medical History: Diagnosis Date Chronic kidney disease (CKD) Hemodialysis patient (CMS/HCC) (HCC) Wednesday, , Wednesday History of blood transfusion 02/27/2022 Hypertension Seizure ([facility]) Developed seizure-like activity on 02/24 during hospital [...] ,ESRD on HD ,AV graft placement (Dr. Rojas 2022), excision of infected LUE AV graft [...] 8.1* ANIONGAP 11 LIVER PROFILE: Recent Labs 12/08/242228 AST 46* ALT 14 BILITOT 0.4 ALKPHOS 166* PROT 6.4 PT/INR: No results for input(s): "PROTIME", "INR" in the last 72 hours. CARDIAC ENZYMES: No results for input(s): "TROPONINI" in the last 72 hours. Procalcitonin: No results found for: "PROCAL" COVID-19 PCR: No results for input(s): "COVID19" in the last 72 hours. 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 No Secondary Emergency Contact: Edward Ruggiero Mobile Relation: Significant Other Preferred language: [employer] Teacher'S Aide needed? No Radha Kevin DO Division of Hospitalist Medicine [facility] [1] Past Medical History: Diagnosis Date Chronic [...] original note were not included. OCCUPATIONAL THERAPY [facility] Name/MRN: Apoorva Gonzalez ([id number]) Date: 12/09/2024 OT orders received and chart reviewed. MRI pending c-spine for r/o discitis, will await results prior to initiating OT eval. Jelly Fischer OT Images from the original note were not included. PHYSICAL THERAPY [facility] Name/MRN: Apoorva Gonzalez ([id number]) Date: 12/09/2024 PT orders received, chart review performed. Patient currently has c-spine MRI pending to r/o discitis. Will hold PT eval and await imaging results. Will re-attempt as patient is appropriate during acute hospital stay. 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 No Secondary Emergency Contact: Edward Ruggiero Mobile Relation: Significant Other Preferred language: [employer] Teacher'S Aide needed? No Past Surgical History: Past Surgical History: Procedure Laterality Date AV FISTULA PLACEMENT Left 08/07/2022 COLONOSCOPY N/A 01/25/2024 Performed by Chrissy Gilman MD at [facility] ENDOSCOPY IR CVC TUNNELED DIALYSIS CATHETER PLACEMENT 02/27/2022 IR CVC TUNNELED CATHETER PLACEMENT 02/27/2022 Candis Andrade MD [facility] SPECIAL PROCEDURES IR EMBOLIZATION 01/24/2024 IR EMBOLIZATION 01/24/2024 Jovan Glynn MD [facility] SPECIAL PROCEDURES VASCULAR SURGERY Left [...] (Temporal) Resp 18 Ht 1.64 m (5' 4.57") Wt 52.8 kg (116 lb 4.8 oz) [...] assistance Toileting Total assistance Feeding Minimal assistance Gamb Cutter Minimal assistance Med Delivery no Wound Care [...] Date: 12/12 Discharging to Facility/ Agency Name: [facility] Address: [address] [place] [address] Dialysis Facility (if applicable) [facility] Address: Dialysis Schedule: Phone: Fax: Supervisor Personnel Clerks/Medical Charge Entry Specialist signature: ICIAN SECTION Name: Apoorva Gonzalez Prognosis: good Condition at Discharge: stable Rehab Potential (if transferring to Rehab): good Recommended Labs or Other Treatments After Discharge: cbc bmp in 3 days The individual is being admitted to a nursing facility directly from an [facility] or a unit of a [facility] that is not operated by or licensed by [facility] under section 5119.14 or 5160-3-15.1 5 The individual requires the level of services provided by a nursing facility for the condition for which he or she was treated in the hospital and, Physician Certification: I certify the above information and transfer of Apoorva Gonzalez is necessary for the continuing treatment of the diagnosis listed and that she requires intermediate facility for less than 30 days. Update Admission H&P: No change in H&P PHYSICIAN SIGNATURE: documented in this encounter [facility] 12-16-2024 Consult note Associated Order (s): IP [...] ESRD on HD, AVG placement (2022, Dr. Rojas), excision of infected graft and evacuation of [...] 0.4 12/16/2024 PT/INR: No results found for: "PROTIME", "INR" Troponin: No results found for: TROPONINI LIPASE: No results found for: LIPASE IMAGING: CT abdomen pelvis wo IV contrast Narrative: Patient Name: APOORVA GONZALEZ : 1950 [address]#: [id number] Exam Date/Time: 12/16/2024 13:50 Procedure: CT ABDOMEN [...] This note may have been dictated using [employer] Medical Practice Edition 2.6 and/or [employer] Voice Recognition Feature. The document was proofread; however, unrecognized voice recognition deal architect errors may be present. [1] Past Medical History: Diagnosis Date Chronic kidney disease (CKD) Hemodialysis patient (CMS/HCC) (HCC) Wednesday, , Wednesday History of blood transfusion 02/27/2022 Hypertension Seizure (HCC) Developed seizure-like activity on 02/24 during hospital admission [2] Past Surgical History: Procedure Laterality Date AV FISTULA PLACEMENT Left 08/07/2022 COLONOSCOPY N/A 01/25/2024 Performed by Chrissy Gilman MD at [facility] ENDOSCOPY IR CVC TUNNELED DIALYSIS CATHETER PLACEMENT 02/27/2022 IR CVC TUNNELED CATHETER PLACEMENT 02/27/2022 Candis Andrade MD [facility] SPECIAL PROCEDURES IR EMBOLIZATION 01/24/2024 IR EMBOLIZATION 01/24/2024 Jovan Glynn MD [facility] SPECIAL PROCEDURES VASCULAR SURGERY Left [...] Daily John Shepherd DO 1 capsule at 12/16/24901 cholecalciferol (Vitamin D-3) tablet 5,000 Units 5,000 Units Oral Daily John Shepherd DO 5,000 Units at 12/16/24901 dextrose 5 % infusion 100 mL/hr IntraVENous PRN Ramonita Garnett NP 100 mL/hr at 12/16/24 1438 100 mL/hr at 12/16/24 1438 dextrose 50 % solution 12.5 g 12.5 g IntraVENous PRN Ramonita Garnett NP 12.5 g at 12/12/24 2230 gadopiclenol (Vueway) injection 5 mL 5 mL IntraVENous Once PRN Radha Kevin, DO glucagon (human recombinant) injection 1 mg [...] mg 0.5 mg IntraVENous q4h PRN Chris Vedrugo MD 0.5 mg at 12/16/24 1444 labetalol (Normodyne,Trandate) injection 10 mg 10 mg IntraVENous q6h PRN aRdha Kevin, DO 10 mg at 12/15/242055 levETIRAcetam (Keppra) tablet 500 mg 500 mg Oral Daily John Shepherd, DO 500 mg at 12/16/24901 Lidocaine 4 % patch 1 patch 1 patch TransDERmal Daily Radha Kevin, DO melatonin tablet 5 mg 5 mg Oral Nightly PRN Eileen Duncan APRN - 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 5 mg at 12/15/242055 meropenem (Merrem) 1,000 mg in sodium chloride 0.9 % 100 mL IVPB 1,000 mg IntraVENous q12h Shamar Bearden MD Stopped at 12/16/24 1637 naloxone (Narcan) injection 0.4 mg 0.4 mg IntraVENous q5 min PRN Radha Kuelvamin, DO ondansetron ODT (Zofran-ODT) disintegrating tablet 4 mg 4 mg Oral q8h PRN John Stuartz, DO Or ondansetron (Zofran) injection 4 mg 4 mg IntraVENous q6h PRN John Stuartz, DO oxyCODONE (Roxicodone) immediate release tablet 2.5 mg 2.5 mg Oral q4h PRN Radha Kuzmin, DO oxyCODONE (Roxicodone) immediate release tablet 5 mg 5 mg Oral q4h PRN Radha Kuzmin, DO 5 mg at 12/11/24 2250 polyethylene glycol (PEG) 3350 (Miralax) packet 17 g 17 g Oral Daily PRN John Shepherd, DO 17 g at 12/10/24 1204 pregabalin (Lyrica) capsule 25 mg 25 mg Oral BID PRN Radha Paredesmin, DO 25 mg at 12/11/24 1052 QUEtiapine (SEROquel) tablet 12.5 mg 12.5 mg Oral BID PRN Eileen Duncan, PARK - 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 sodium chloride 0.9 % infusion 250 mL/hr [...] 5-40 mL 5-40 mL IntraVENous PRN John Stuartz, DO stomahesive in petrolatum (ET Mix) Topical [...] 10 min Stress: Stress Concern Present (12/09/2024) [facility] [place] [facility] - Occupational Stress Questionnaire Feeling of Stress : Very much Social Connections: Moderately Integrated (12/09/2024) Social Connection and Isolation Panel [NHANES] Frequency of Communication with Friends and Family: More than three times a week Frequency of Social Gatherings with Friends and Family: Three times a week Attends Latter-Day Services: 1 to 4 times per year [...] ESRD on HD, AVG placement (2022, Dr. Rojas), excision of infected graft and evacuation of [...] (MOD) Personally Reviewed/Independently interpreted patient's: [x]Epic notes: []Director Sales Training notes, []Nursing notes, []Case management/SW [x]Radiology studies: [...] This note may have been dictated using [employer] Practice Edition 2.6 and/or [employer] Voice Recognition Feature. The document was proofread; however, unrecognized voice recognition deal architect errors may be present. [1] Patient Active Problem List Diagnosis Hypertensive emergency Gastrointestinal hemorrhage, unspecified gastrointestinal hemorrhage type Anemia Pulmonary edema, acute ([facility]) Shortness of breath COVID-19 Edema of left lower extremity Sepsis, due to unspecified organism, unspecified whether acute organ dysfunction present ([facility]) Seizures ([facility]) ESRD (end stage renal disease) ([facility]) Dialysis patient ([facility]) Wound dehiscence End stage congestive heart failure ([facility]) Fall, initial encounter Fall (on)(from) sidewalk curb, initial encounter Moderate malnutrition ([facility]) ([facility]) [2] Past Medical History: Diagnosis Date Chronic kidney disease (CKD) Hemodialysis patient ([facility]) ([facility]) Wednesday, , Wednesday History of blood transfusion 02/27/2022 Hypertension Seizure ([facility]) Developed seizure-like activity on 02/24 during hospital [...] & deltoids) Fluid Accumulation: Mild Extremities, Generalized Jackerman Strength: Not Performed Nutrition Assessment: Pt with [...] room) Anthropometric Measures: Height: 164 cm (5' 4.57") Current Body Weight: (116# noted by prior RD on 12/11) Admission Body Weight: 50.3 kg (111 lb) (stated) Usual Body Weight: (Most recent EDW 47.1kg (104#) from 09/2024. Wt usually range between 105-121# during admissions since August 2024. Wts prior to that within the past year between 105-112#.) [place] Body Weight (lbs) (Calculated): 123 lbs [place] Body Weight (Kg) (Calculated): 56 kg % [place] Body Weight (Calculated): 94.6 % BMI (kg/m2) [...] Alexus Denney RD Contact: Secure chat or *[phone] Associated Order(s): IP CONSULT TO PALLIATIVE CARE [...] ( ) Alternate is s/o Edward Ruggiero [phone]) -goals of care include: 1) discussed with [...] History of seizures - remains on home [facility] Palliative Care Encounter -Code Status: DNR-CCA - will continue to follow for ongoing monitoring of progression of encephalopathy as well as for appropriateness for hospice care due to ESRD, sepsis, encephalopathy - was residing at [facility] Time Stamp: Total of 90 minutes [...] Management Advanced Directives: Health Care Power of It Admin, DNR Functional Assessment: PPS 40% mainly in bed; can't do any work/extensive disease; mainly assistance; normal or reduced intake; full or drowsy or confusion Prognosis: uncertain at this time Spiritual Assessment: No spiritual distress identified Bereavement and Grief: To Be Determined PDMP/OARRS Reviewed: Yes-reviewed Social history: Marital status: Children: unknown Living status: [facility] Work history: unknown [place] status: No Pentecostalism: None ROS: See palliative care ROS/ESAS below; Detail ROS unable to be obtained due to patient's mental status [place] Symptom Assessment Score [place] Score Pain Score (if non-verbal, add .FLACC [...] (98.7 F) (Temporal) Resp 20 Ht 5' 4.57" (1.64 m) Wt 116 lb 4.8 oz [...] 01/25/2024 Performed by Chrissy Gilman MD at [facility] ENDOSCOPY IR CVC TUNNELED DIALYSIS CATHETER PLACEMENT 02/27/2022 IR CVC TUNNELED CATHETER PLACEMENT 02/27/2022 Candis Andrade MD [facility] SPECIAL PROCEDURES IR EMBOLIZATION 01/24/2024 IR EMBOLIZATION 01/24/2024 Jovan Glynn MD [facility] SPECIAL PROCEDURES VASCULAR SURGERY Left [...] from the original note were not included. [facility] - Infectious Diseases Attending Consult Note Reason [...] questions. She consistently was moaning and saying "ow." When asked what was hurting her specifically, she did not give response, although when touching her neck and legs are specifically what triggered her to say "ow." It is unclear, however, if both of these areas hurt. When edema was checked in the leg first, she did not say "ow", but when palpating her neck, she was moaning and saying "ow" and then continued to say it throughout [...] 10 min Stress: Stress Concern Present (12/09/2024) [facility] [place] [facility] - Occupational Stress Questionnaire Feeling of Stress : Very much Social Connections: Moderately Integrated (12/09/2024) Social Connection and Isolation Panel [NHANES] Frequency of Communication with Friends and Family: More than three times a week Frequency of Social Gatherings with Friends and Family: Three times a week Attends Latter-Day Services: 1 to 4 times per year [...] F) Temporal (!) 129 16 94 % 12/12/24 2000 150/81 36.4 C (97.6 F) Temporal 111 [...] fidgeting and moving during exam. Patient said "ow" when palpating cervical spine Cardiovascular: Rate and Rhythm: Regular rhythm. Tachycardia present. Pulmonary: Effort: No respiratory distress. Breath sounds: Normal breath sounds. Abdominal: Palpations: Abdomen is soft. Musculoskeletal: Right lower leg: Edema present. Left lower leg: Edema present. Comments: Patient stated "ow" when attempting to perform Kernig sign, although [...] 9.8* -- 9.5* -- Micro: 12/12/2024 - 2 blood cultures NGTD LDA: HD tunneled catheter [...] Chronic kidney disease (CKD) Hemodialysis patient (CMS/HCC) ([facility]) Wednesday, , Wednesday History of blood transfusion 02/27/2022 Hypertension Seizure ([facility]) Developed seizure-like activity on 02/24 during hospital admission [2] Past Surgical History: Procedure Laterality Date AV FISTULA PLACEMENT Left 08/07/2022 COLONOSCOPY N/A 01/25/2024 Performed by Chrissy Gilman MD at [facility] ENDOSCOPY IR CVC TUNNELED DIALYSIS CATHETER PLACEMENT 02/27/2022 IR CVC TUNNELED CATHETER PLACEMENT 02/27/2022 Candis Andrade MD [facility] SPECIAL PROCEDURES IR EMBOLIZATION 01/24/2024 IR EMBOLIZATION 01/24/2024 Jovan Glynn MD [facility] SPECIAL PROCEDURES VASCULAR SURGERY Left [...] 650 mg 650 mg Oral q4h PRN Rahda Kuzmin, DO Or acetaminophen (Tylenol) suppository 650 mg 650 mg Rectal q4h PRN Radha Kuzmin, DO acetaminophen (Tylenol) tablet 1,000 mg 1,000 mg Oral q8h Radha Kuzmin, DO 1,000 mg at 12/13/24 0537 amLODIPine (Norvasc) tablet 10 mg 10 mg Oral Daily Radha Kuzmin, DO 10 mg at 12/12/24 0857 atorvastatin (Lipitor) tablet 40 mg 40 mg Oral Nightly John Shepherd DO 40 mg at 12/12/24 2116 B [...] injection 1 mg 1 mg IntraMUSCular PRN Ramonitajoann Garnett, DRYING CAN WORKER glucose oral gel 15 g 15 g Oral PRN Ramonitajoann Garnett, DRYING CAN WORKER heparin injection 1,200-2,000 Units 1,200-2,000 Units IntraCATHeter PRN Jose G P Zidehsarai, DO 2,100 Units at 12/12/24 1758 heparin injection 1,200-2,000 Units 1,200-2,000 Units IntraCATHeter PRN Jose G P Zidehsarai, DO 2,000 Units at 12/12/24 1758 hydrALAZINE (Apresoline) injection 10 mg 10 mg IntraVENous q4h PRN Radha Kuelvamin, DO 10 mg at 12/09/24 1521 labetalol (Normodyne,Trandate) injection 10 mg 10 mg IntraVENous q6h PRN Radha Paredesmin, DO 10 mg at 12/11/241999 levETIRAcetam (Keppra) tablet 500 mg 500 mg Oral Daily John Shepherd, DO 500 mg at 12/12/24 0857 Lidocaine 4 % patch 1 patch 1 patch TransDERmal Daily Radha Paredesmin, DO melatonin tablet 5 mg 5 mg Oral Nightly John Benitez Pentz, DO 5 mg at 12/12/24 2116 naloxone (Narcan) injection 0.4 mg 0.4 mg IntraVENous q5 min PRN Radha Paredesmin, DO ondansetron ODT (Zofran-ODT) disintegrating tablet 4 mg 4 mg Oral q8h PRN John Benitez Pentz, DO Or ondansetron (Zofran) injection 4 mg 4 mg IntraVENous q6h PRN John Stuartz, DO oxyCODONE (Roxicodone) immediate release tablet 2.5 mg 2.5 mg Oral q4h PRN Radha Beltranzmin, DO oxyCODONE (Roxicodone) immediate release tablet 5 mg 5 mg Oral q4h PRN Radha Paredesmin, DO 5 mg at 12/11/24 2250 polyethylene glycol (PEG) 3350 (Miralax) packet 17 g 17 g Oral Daily PRN Johnronda Benitez Pentz, DO 17 g at 12/10/24 1204 pregabalin [...] % infusion 5-250 mL/hr IntraVENous PRN John Benitez Pentz, DO sodium chloride 0.9% (NS) flush 5-40 mL 5-40 mL IntraVENous q12h John Benitez Pentz, DO 10 mL at 12/12/24 0443 sodium chloride 0.9% (NS) flush 5-40 mL 5-40 mL IntraVENous PRN John Benitez Pentz, DO thiamine (Vitamin B1) tablet 250 mg 250 mg Oral Daily John Benitez Pentz, DO 250 mg at 12/11/24 [...] cancer Mother's Sister 70 Cosigned by Shamar Bearden MD at 12/13/2024 6:51 PM EDT Associated attestation - Shamar Bearden MD - 12/13/2024 6:51 PM EDT [facility] Infectious Disease Attending Note Patient seen and evaluated with resident/student. I performed/re-performed a history, physical examination, and saavedra elements of management of the patient and discussed his/her management with the resident/student. I reviewed the resident/student note and agree with the documented findings and plan of care with changes as noted with italics. Patient well known to me from previous [facility] admissions in the past few [...] from the original note were not included. 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 Any questions or concerns please secure chat "[facility] wound/ostomy". Thank you for the consult! I personally [...] 01/25/2024 Performed by Chrissy Gilman MD at [facility] ENDOSCOPY IR CVC TUNNELED DIALYSIS CATHETER PLACEMENT 02/27/2022 IR CVC TUNNELED CATHETER PLACEMENT 02/27/2022 Candis Andrade MD [facility] SPECIAL PROCEDURES IR EMBOLIZATION 01/24/2024 IR EMBOLIZATION 01/24/2024 Jovan Glynn MD [facility] SPECIAL PROCEDURES VASCULAR SURGERY Left [...] Apoorva Gonzalez Date of : 1950 Acct: [id number] PCP: Roxie Spain Date of Admission: 12/08/2024 [...] September 2024. She was initially treated at [facility] but was transferred to [facility] for ICU treatment of septic shock, hypoxic respiratory failure, and encephalopathy. She had an infected right thigh hematoma that was irrigated and debrided at [facility] at that time with recurrence of her [...] AV FISTULA Maria A Khan MD; Raffy Rojas MD N/A Posted 11/02/2024 EXCISION OF LEFT UPPER EXTREMITY INFECTED GRAFT Raffy Rojas MD; Francisco Javier Somers III, MD Left Posted 01/25/2024 COLONOSCOPY Demarioed Isael Gilman MD N/A Posted <div class="[id number]"></ div> Home Medications: Prior to Admission medications [...] (40 mg) by mouth Nightly. 03/02/22 12/06/24 PARK Lipscomb CNP levETIRAcetam (Keppra) 500 MG tablet Take 1 tablet (500 mg) by mouth daily. 03/02/22 12/06/24 PARK Lipscomb CNP magnesium hydroxide (Milk of Magnesia) 2400 MG/10ML [...] 10 min Stress: Stress Concern Present (12/09/2024) [employer] [place] [facility] - Occupational Stress Questionnaire Feeling of Stress : Very much Social Connections: Moderately Integrated (12/09/2024) Social Connection and Isolation Panel [NHANES] Frequency of Communication with Friends and Family: More than three times a week Frequency of Social Gatherings with Friends and Family: Three times a week Attends Latter-Day Services: 1 to 4 times per year [...] (Temporal) Resp 16 Ht 1.64 m (5' 4.57") Wt 52.8 kg (116 lb 4.8 oz) [...] PLT 293 300 -- 332 Recent Labs 12/10/2454112/11/2422412/12/24 0103 NA 135* 138 137 K 3.4* 3.7 4.1 CL 99 100 100 CO2 26 27 26 BUN 25* 32* 38* CREATININE 4.24* 4.96* 5.60* CALCIUM 7.5* 8.0* 7.8* No results for input(s): "INR" in the last 72 hours. No results for input(s): "SEDRATE", "CRP" in the last 72 hours. No results for input(s): "HCG" in the last 72 hours. The above [...] update plan of care accordingly. Please page dictaphone typist orthopaedic resident for questions or concerns. Balta Chacon M.D. PGY-2 Orthopaedic Surgery Francisco Javier Morales MD Orthopaedic Surgery, PGY-4 [1] Past Medical History: Diagnosis Date Chronic kidney disease (CKD) Hemodialysis patient ([facility]/HCC) ([facility]) Wednesday, , Wednesday History of blood transfusion 02/27/2022 Hypertension Seizure ([facility]) Developed seizure-like activity on 02/24 during hospital [...] q8h, Radha Kuzmin, DO, 1,000 mg at 12/12/24 0443 amLODIPine (Norvasc) tablet 10 mg, 10 mg, Oral, Daily, Radha Kuzmin, DO, 10 mg at 12/12/24 0857 atorvastatin (Lipitor) tablet 40 mg, 40 mg, Oral, Nightly, John Benitez Pentz, DO, 40 mg at 12/10/24 2124 B complex-vitamin C-folic acid (Nephrocaps) capsule 1 capsule, 1 capsule, Oral, Daily, John Benitez Pentz, DO, 1 capsule at 12/11/24 0813 cefepime (Maxipime) 1,000 mg in sodium chloride 0.9 % 50 mL IVPB, 1,000 mg, IntraVENous, q12h, Jacob Laguna DO, Stopped at 12/12/24 1406 cholecalciferol (Vitamin D-3) tablet 5,000 Units, 5,000 Units, Oral, Daily, John Victor Manuel Pentz, DO, 5,000 Units at 12/11/24 0813 gadopiclenol (Vueway) injection 5 mL, 5 mL, IntraVENous, Once PRN, Radha Devinzmin, DO heparin injection 1,200-2,000 Units, 1,200-2,000 Units, [...] Daily, Radha Beltranzmin, DO, 25 mg at 12/12/24 0856 sevelamer carbonate (Renvela) tablet 800 mg, 800 mg, Oral, TID WC, Jonh Benitez Pentz, DO, 800 mg at 12/11/24 1805 sodium chloride 0.9 % infusion, 250 mL/hr, IntraVENous, PRN, John Benitez Pentz, DO sodium chloride 0.9 % infusion, 5-250 mL/hr, IntraVENous, PRN, John Shepherd, DO sodium chloride 0.9% (NS) flush 5-40 mL, 5-40 mL, IntraVENous, q12h, John Shepherd DO, 10 mL at 12/12/24 0443 sodium chloride 0.9% (NS) flush 5-40 mL, 5-40 mL, IntraVENous, PRN, John Shepherd, DO thiamine (Vitamin B1) tablet 250 mg, 250 mg, Oral, Daily, John Shepherd DO, 250 mg at 12/11/24 0813 vancomycin (Vancocin) intermittent dosing (placeholder), , Other, RX Placeholder, Radha Kevin DO [3] Family History Problem Relation Name Age [...] as of this encounter: 1.64 m (5' 4.57"). Weight as of this encounter: 52.8 kg (116 lb 4.8 oz). DW: 52.8 kg Lab Results Component Value Date CREATININE 4.96 (H) 12/11/2024 CREATININE 4.24 (H) 12/10/2024 BUN 32 (H) 12/11/2024 BUN 25 (H) 12/10/2024 WBC 12.1 (H) 12/11/2024 WBC 10.2 12/10/2024 Renal: [x]HD []CRRT []PD [] CrCl ml/min (Cockcroft-Gault, if ROLANDO, no NETWORK ADMIN) Consulted By: Dr. Radha Kevin Vancomycin Level: [...] Chat Associated Order(s): IP CONSULT TO GERIATRICS [facility] Geriatric Medicine Inpatient Consult Service Admission Date: [...] patient's brother/POA for my call went to [employer]. Will attempt to reach out at another time. Advance Care Planning Healthcare Power ofAttorney: yes Financial Power of It Admin: yes Living Will:yes Code Status: DNR CCA [...] (98.1 F) (Temporal) Resp 24 Ht 5' 4.57" (1.64 m) Wt 111 lb (50.3 kg) [...] TSH 3.30 09/14/2024 No components found for: "B12" No results found for: "VITD25" Reviewed: active problem list, medication list, allergies, [...] 5,000 Units, 5,000 Units, Oral, Daily, John Reynagaew Pentz, DO, 5,000 Units at 12/10/24 0807 hydrALAZINE (Apresoline) injection 10 mg, 10 mg, IntraVENous, q4h PRN, Radha Kuzmin, DO, 10 mg at 12/09/24 1521 labetalol (Normodyne,Trandate) injection 10 mg, 10 mg, IntraVENous, q6h PRN, Radha Kuzmin, DO, 10 mg at 12/10/24 0807 levETIRAcetam (Keppra) tablet 500 mg, 500 mg, Oral, Daily, John Reynagaew Pentz, DO, 500 mg at 12/10/24 0806 Lidocaine 4 % patch 1 patch, 1 patch, TransDERmal, Daily, Radha Paredesmin, DO melatonin tablet 5 mg, 5 mg, Oral, Nightly, John Benitez Pentz, DO, 5 mg at 12/09/24 215 ondansetron ODT (Zofran-ODT) disintegrating tablet 4 mg, 4 mg, Oral, q8h PRN OR ondansetron (Zofran) injection 4 mg, 4 mg, IntraVENous, q6h PRN, John Victor Manuel Pentz, DO polyethylene glycol (PEG) 3350 (Miralax) packet 17 g, 17 g, Oral, Daily PRN, John Reynagaew Pentz, DO sevelamer carbonate (Renvela) tablet 800 mg, 800 mg, Oral, TID WC, John Reynagaew Pentz, DO, 800 mg at 12/10/24 0806 sodium chloride 0.9 % infusion, 250 mL/hr, IntraVENous, PRN, John Victor Manuel Pentz, DO sodium chloride 0.9 % infusion, 5-250 mL/hr, IntraVENous, PRN, John Victor Manuel Pentz, DO sodium chloride 0.9% (NS) flush 5-40 mL, 5-40 mL, IntraVENous, q12h, John Reynagaew Pentz, DO, 10 mL at 12/10/24 0816 sodium chloride 0.9% (NS) flush 5-40 mL, 5-40 mL, IntraVENous, PRN, John Reynagaew Pentz, DO thiamine (Vitamin B1) tablet 250 mg, 250 mg, Oral, Daily, John Shepherd DO, 250 mg at 12/10/24 0806 vancomycin (Vancocin) 1,000 mg in sodium chloride 0.9 % 250 mL IVPB (Vial Mate), 20 mg/kg, IntraVENous, Once, John Shepherd DO [3] Past Medical History: Diagnosis Date Chronic kidney disease (CKD) Hemodialysis patient (CMS/HCC) (HCC) Wednesday, , Wednesday History of blood transfusion 02/27/2022 Hypertension Seizure ([facility]) Developed seizure-like activity on 02/24 during hospital admission [4] Past Surgical History: Procedure Laterality Date AV FISTULA PLACEMENT Left 08/07/2022 COLONOSCOPY N/A 01/25/2024 Performed by Chrissy Gilman MD at [facility] ENDOSCOPY IR CVC TUNNELED DIALYSIS CATHETER PLACEMENT 02/27/2022 IR CVC TUNNELED CATHETER PLACEMENT 02/27/2022 Candis Andrade MD [facility] SPECIAL PROCEDURES IR EMBOLIZATION 01/24/2024 IR EMBOLIZATION 01/24/2024 Jovan Glynn MD [facility] SPECIAL PROCEDURES VASCULAR SURGERY Left 11/02/2024 EXCISION OF LEFT UPPER EXTREMITY INFECTED GRAFT (JIM) VASCULAR SURGERY Left 11/05/2024 REVISION OR REPAIR, AV FISTULA (JIM) [5] Family History Problem Relation Name Age of Onset Dementia Mother Stroke Father Prostate cancer Brother 69 Breast cancer Cousin 32 Stomach cancer Mother's Sister 70 [facility] Consult Note Consults HPI The patient [...] 10 min Stress: Stress Concern Present (12/09/2024) [employer] [place] [facility] - Occupational Stress Questionnaire Feeling of Stress : Very much Social Connections: Moderately Integrated (12/09/2024) Social Connection and Isolation Panel [NHANES] Frequency of Communication with Friends and Family: More than three times a week Frequency of Social Gatherings with Friends and Family: Three times a week Attends Latter-Day Services: 1 to 4 times per year [...] (Temporal) Resp 20 Ht 1.64 m (5' 4.57") Wt 50.3 kg (111 lb) SpO2 99% [...] and medication adjustments. Please message me through [employer] chat with any questions or concerns. Sean Castaneda MD 12/09/2024 4:23 PM [facility] [place] [address], [address] [place] [address] Office: [phone] [1] Past Medical History: Diagnosis Date Chronic [...] mg, 40 mg, Oral, Nightly, John Shepherd DO B complex-vitamin C-folic acid (Nephrocaps) capsule 1 [...] Daily, John Stuartz, DO, 500 mg at 12/09/24 0841 melatonin tablet 5 mg, 5 mg, Oral, Nightly, John Benitez Pentz, DO ondansetron ODT (Zofran-ODT) disintegrating tablet 4 mg, 4 mg, Oral, q8h PRN OR ondansetron (Zofran) injection 4 mg, 4 mg, IntraVENous, q6h PRN, John Benitez Pentz, DO polyethylene glycol (PEG) 3350 (Miralax) packet 17 g, 17 g, Oral, Daily PRN, John Benitez Pentz, DO sevelamer carbonate (Renvela) tablet 800 mg, 800 mg, Oral, TID WC, John Benitez Pentz, DO, 800 mg at 12/09/24 1147 sodium chloride 0.9 % infusion, 250 mL/hr, IntraVENous, PRN, John Benitez Pentz, DO sodium chloride 0.9 % infusion, 5-250 mL/hr, IntraVENous, PRN, John Benitez Pentz, DO sodium chloride 0.9% (NS) flush 5-40 mL, 5-40 mL, IntraVENous, q12h, John Benitez Pentz, DO sodium chloride 0.9% (NS) flush 5-40 mL, 5-40 mL, IntraVENous, PRN, John Benitez Pentz, DO thiamine (Vitamin B1) tablet 250 mg, 250 mg, Oral, Daily, John Stuartz, DO, 250 mg at 12/09/24 0841 vancomycin (Vancocin) 1,000 mg in sodium chloride 0.9 % 250 mL IVPB (Vial Mate), 20 mg/kg, IntraVENous, Once, John Stuartz, DO [4] amLODIPine, 5 mg, Oral, Daily [...] sodium chloride 0.9% documented in this encounter [facility] 12-12-2024 Note Return Referral plac ed to [facility] per [facility] request. Await review and response regarding ability to accept. [facility] notified. [facility] 12-09-2024 Emergency department Note IV re [...] for clarification.) Mason Munson MD Acute Care [facility] Mason Munson MD 12/08/24 0037 EMERGENCY DEPARTMENT ENCOUNTER Pt Name: Apoorva Gonzalez [...] DEPARTMENT COURSE and DIFFERENTIAL DIAGNOSIS/MDM: Vitals: Vitals: 12/08/24 2001 12/08/24 2335 BP: (!) 174/93 (!) 172/90 Pulse: 108 101 Resp: 20 16 Temp: 37.4 C (99.3 F) TempSrc: Temporal SpO2: 98% 100% Weight: 50.3 kg (111 lb) Height: 1.626 m (5' 4") The patient presented with a chief complaint [...] tablet 5 mg (5 mg Oral Given 12/08/242250) potassium chloride CR (Klor-Con M10) ER tablet 40 mEq (40 mEq Oral Given 12/08/242337) Prescription drugs considered: Blood transfusion PROCEDURES: Unless [...] History of blood transfusion 02/27/2022 Hypertension Seizure ([facility]) Developed seizure-like activity on 02/24 during hospital admission [2] Past Surgical History: Procedure Laterality Date AV FISTULA PLACEMENT Left 08/07/2022 COLONOSCOPY N/A 01/25/2024 Performed by Chrissy Gilman MD at [facility] ENDOSCOPY IR CVC TUNNELED DIALYSIS CATHETER PLACEMENT 02/27/2022 IR CVC TUNNELED CATHETER PLACEMENT 02/27/2022 Candis Andrade MD [facility] SPECIAL PROCEDURES IR EMBOLIZATION 01/24/2024 IR EMBOLIZATION 01/24/2024 Jovan Glynn MD [facility] SPECIAL PROCEDURES VASCULAR SURGERY Left [...] Year: No Angelica Hines DO Resident 12/08/24 6722 Cosigned by Mason Munson MD at 12/09/2024 9:45 PM EDT Emergency Department Encounter Location: [facility] Patient: Apoorva Gonzalez : 1950 Date of evaluation: 12/08/2024 ED Provider: Jacob Laguna DO Time received sign-out: 2300 Apoorva Gonzalez was checked out to me by Dr. Angelica Hines DO. Please see his/her initial documentation for [...] AM Result Value Ref Range PRODUCT CODE R1751C04 Unit Number [id number] Unit ABO O Unit RH POS Crossmatch interpretation COMP Dispense Status Transfused Blood Expiration Date [id number] Product Blood Type 5100 Unit Volume 300 [...] 40 mEq (40 mEq Oral Given 12/08/24 3578) oxyCODONE (Roxicodone) immediate release tablet 5 mg (5 mg Oral Given 12/09/24 0239) Final Impression 1. Fall, initial encounter 2. Closed head injury, initial encounter DISPOSITION Observation 12/09/2024 04:45:13 AM (Please note that portions of this note may have been completed with a voice recognition program. Efforts were made to edit the dictations but occasionally words are mis-transcribed.) DO Jacob Dejesus DO Resident 12/09/24 0825 Cosigned by Mason Munson MD at 12/09/2024 9:45 PM EDT documented in this encounter [facility] 12-09-2024 Note [facility] 12-09-2024 History and physical note Attending History and Physical Admit Date: 12/08/2024 PCP: Roxie Spain CHIEF COMPLAINT: Fall Reason for Admission: Rule out discitis History Obtained From: patient HISTORY OF PRESENT ILLNESS: Patient is a 74-year-old female with past medical history of ESRD on HD, PSH AV graft placement (Dr. Rojas 2022), excision of infected LUE AV graft [...] discharge. Plan was for discharge back to [facility] on 11/13/24 however pt required new authorization from [facility] to return to the facility. Auth obtained [...] C (98.7 F) Resp 16 Ht 5' 4" (1.626 m) Wt 111 lb (50.3 kg) [...] 8.1* ANIONGAP 11 LIVER PROFILE: Recent Labs 12/08/242228 AST 46* ALT 14 BILITOT 0.4 ALKPHOS 166* PROT 6.4 PT/INR: No results for input(s): "PROTIME", "INR" in the last 72 hours. CARDIAC ENZYMES: No results for input(s): "TROPONINI" in the last 72 hours. Procalcitonin: No results found for: "PROCAL" Urine Culture: No results found for this or any previous visit. COVID-19 PCR: No results for input(s): "COVID19" in the last 72 hours. 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 No Secondary Emergency Contact: RuggieroEdward Mobile Relation: Significant Other Preferred language: [employer] [employer] Teacher'S Aide needed? No [employer] Apoorva Navarro Rajinder : 1950 Primary Care Physician: Roxie Spain The patient and/or family/surrogate voluntarily agreed to participate in ACP services. Patient s cognitive capacity: Alert and oriented Code Status: [_] [FULL CODE - Continue all advanced life support: CPR,intubation,invasive procedures] [X] [DNR-CCA - DO NOT do CPR, intubation] [_] [DNR-QUICK TECHNICIAN - Comfort care only] [_] DNR form [was/was not] signed Summary of discussion: The patient health care POA/ surrogate is the following: Brother. Patient states "I have lived a long life, I do not want to be on those machines". I clarified that patient was referring to [...] John Shepherd DO Division of Hospitalist Medicine [facility] [1] Past Medical History: Diagnosis Date Chronic kidney disease (CKD) Hemodialysis patient (CMS/HCC) (HCC) Wednesday, , Wednesday History of blood transfusion 02/27/2022 Hypertension Seizure ([facility]) Developed seizure-like activity on 02/24 during hospital admission [2] Past Surgical History: Procedure Laterality Date AV FISTULA PLACEMENT Left 08/07/2022 COLONOSCOPY N/A 01/25/2024 Performed by Chrissy Gilman MD at [facility] ENDOSCOPY IR CVC TUNNELED DIALYSIS CATHETER PLACEMENT 02/27/2022 IR CVC TUNNELED CATHETER PLACEMENT 02/27/2022 Candis Andrade MD [facility] SPECIAL PROCEDURES IR EMBOLIZATION 01/24/2024 IR EMBOLIZATION 01/24/2024 Jovan Glynn MD [facility] SPECIAL PROCEDURES VASCULAR SURGERY Left [...] Mini-Bag Plus, 2,000 mg, IntraVENous, q24h, Jacob Laguna, sodium chloride 0.9 % infusion, 250 mL/hr, IntraVENous, PRN, Angelica Hines, vancomycin (Vancocin) 1,000 mg in sodium chloride [...] No Known Allergies documented in this encounter [facility] 12-06-2024 History of Present illness Narrative 12/06/2024 Apoorva Gonzalez 1950 Chief Complaint Patient presents with Post-op [...] new access creation at that time. Raffy Rojas MD Vascular Surgery [1] Past Surgical History: Procedure Laterality Date AV FISTULA PLACEMENT Left 08/07/2022 COLONOSCOPY N/A 01/25/2024 Performed by Chrissy Gilman MD at [facility] ENDOSCOPY IR CVC TUNNELED DIALYSIS CATHETER PLACEMENT 02/27/2022 IR CVC TUNNELED CATHETER PLACEMENT 02/27/2022 Candis Andrade MD [facility] SPECIAL PROCEDURES IR EMBOLIZATION 01/24/2024 IR EMBOLIZATION 01/24/2024 Jovan Glynn MD [facility] SPECIAL PROCEDURES VASCULAR SURGERY Left 11/02/2024 EXCISION OF LEFT UPPER EXTREMITY INFECTED GRAFT (JIM) VASCULAR SURGERY Left 11/05/2024 REVISION OR REPAIR, AV FISTULA (JIM) documented in this encounter [facility] 11-27-2024 History of Present illness Narrative 11/27/2024 Apoorva Gonzalez 1950 Chief Complaint Patient presents with Post-op [...] I have ordered new vessel mapping. Raffy Rojas MD Vascular Surgery [1] Past Surgical History: Procedure Laterality Date AV FISTULA PLACEMENT Left 08/07/2022 COLONOSCOPY N/A 01/25/2024 Performed by Chrissy Gilman MD at [facility] ENDOSCOPY IR CVC TUNNELED DIALYSIS CATHETER PLACEMENT 02/27/2022 IR CVC TUNNELED CATHETER PLACEMENT 02/27/2022 Candis Andrade MD [facility] SPECIAL PROCEDURES IR EMBOLIZATION 01/24/2024 IR EMBOLIZATION 01/24/2024 Jovan Glynn MD [facility] SPECIAL PROCEDURES VASCULAR SURGERY Left 11/02/2024 EXCISION OF LEFT UPPER EXTREMITY INFECTED GRAFT (JIM) VASCULAR SURGERY Left 11/05/2024 REVISION OR REPAIR, AV FISTULA (JIM) documented in this encounter [facility] 11-22-2024 Emergency department Note Called [facility] [phone]. Spoke with CYNTHIA Perry. Advised pt sent in from dialysis for low hgb of 6.5, [facility] ED hgb 7.8. pt stable and will be sent back. [facility] 11-22-2024 Emergency department Note Called [facility] [phone]. Spoke with CYNTHIA Perry. Advised pt sent in from dialysis for low hgb of 6.5, [facility] ED hgb 7.8. pt stable [...] kg (103 lb) Height: 1.626 m (5' 4") 74-year-old female presents due to anemia. Differential [...] sepsis, or septic shock (If yes use ".sepsiscoremeasure"): FINAL IMPRESSION 1. Anemia of chronic disease [...] 01/25/2024 Performed by Chrissy Gilman MD at [facility] ENDOSCOPY IR CVC TUNNELED DIALYSIS CATHETER PLACEMENT 02/27/2022 IR CVC TUNNELED CATHETER PLACEMENT 02/27/2022 Candis Andrade MD [facility] SPECIAL PROCEDURES IR EMBOLIZATION 01/24/2024 IR EMBOLIZATION 01/24/2024 Jovan Glynn MD [facility] SPECIAL PROCEDURES VASCULAR SURGERY Left [...] Warner MD 11/22/241714 documented in this encounter [facility] 11-22-2024 Physician Emergency department Note EMERGENCY DEPARTMENT [...] Family History[3] SOCIAL HISTORY Social History[4] SCREENINGS [place] Coma Scale Best Eye Response: Spontaneous Best Verbal Response: Confused Best Motor Response: Follows commands [place] Coma Scale Score: 14 PHYSICAL EXAM ED [...] kg (103 lb) Height: 1.626 m (5' 4") 74-year-old female presents due to anemia. Differential [...] sepsis, or septic shock (If yes use ".sepsiscoremeasure"): FINAL IMPRESSION 1. Anemia of chronic disease [...] History of blood transfusion 02/27/2022 Hypertension Seizure ([facility]ERLY [facility]) Developed seizure-like activity on 02/24 during hospital admission [2] Past Surgical History: Procedure Laterality Date AV FISTULA PLACEMENT Left 08/07/2022 COLONOSCOPY N/A 01/25/2024 Performed by Chrissy Gilman MD at [facility]COPY IR CVC TUNNELED DIALYSIS CATHETER PLACEMENT 02/27/2022 IR CVC TUNNELED CATHETER PLACEMENT 02/27/2022 Candis Andrade MD [facility] SPECIAL PROCEDURES IR EMBOLIZATION 01/24/2024 IR EMBOLIZATION 01/24/2024 Jovan Glynn MD [facility] SPECIAL PROCEDURES VASCULAR SURGERY Left [...] Last Year: No Kev Warner MD 11/22/241714 [facility] 11-16-2024 History of Present illness Narrative Pt was followed by the Palliative Care Team during hospitalization at [facility]. Provider is recommending continued Palliative follow up in the community. Referral made too [facility]. Info faxed to [phone] documented in this encounter [facility] 11-15-2024 Note [facility] 11-15-2024 Hospital course Narrative Hospitalist Discharge Summary Apoorva Gonzalez : 1950 Admit date: 11/12/2024 Discharge date: 11/15/2024 Admitting Physician: Edson Graham MD Primary Care Physician: Roxie Spain Visit Status: Observation Code Status: DNR-CCA BRIEF HOSPITAL COURSE: Apoorva is a 74 y.o. female with past medical history of CKD, hemodialysis (//Wed), history of blood transfusion, Hypertension, and seizure disorder who presents from [facility] with chief complaint of left upper extremity graft site complication with bloody drainage. She presents as a direct transfer from [facility] due to complications of left upper extremity [...] on November 05, 2024. On evaluation at [facility] ER she was noted to have a white count of 10.9 (down trended from 12.6 the day prior. Hemoglobin 9.3 (increased from 7.0 the day prior). BMP grossly unremarkable for ESRD patient. ED physician at [facility] discussed with vascular surgery and plan for admit with vascular surgery consult. Case was discussed with [place] emergency room physician and patient admitted for [...] draws. Plan was for discharge back to [facility] today 11/13/24 however pt requires new authorization from [facility] to return to the facility. Auth obtained [...] (98.1 F) (Temporal) Resp 16 Ht 5' 4" (1.626 m) Wt 109 lb 4.8 oz [...] I take this medication? Recommended Follow-up: Roxie Spain [address] [place] [address] Schedule an appointment as soon as possible for a visit [facility] [address] [facility] [address] Complexity of Follow up: [] Moderate Complexity: follow up within 7-14 calendar days (99639) [x] Severe Complexity: follow up within 7 calendar days (83588) Follow up Testing, Pending results or Referrals [...] frame. Signed: Megan Alaniz NP Division of Hospitalist Medicine [facility]3] 11/15/2024, 11:40 AM [1] Past Medical History: Diagnosis Date Chronic kidney disease (CKD) Hemodialysis patient (CMS/HCC) (HCC) Wednesday, , Wednesday History of blood transfusion 02/27/2022 Hypertension Seizure ([facility]) Developed seizure-like activity on 02/24 during hospital admission Cosigned by Kevin Do MD at 11/15/2024 8:56 PM EDT documented in this encounter [facility] 11-15-2024 Nurse Note Report called to nurse at [facility]. All questions answered. supervisor counseling and guidance time scheduled for 1230. [facility] 11-15-2024 Nurse Note Report called to nurse at [facility]. All questions answered. supervisor counseling and guidance time scheduled for 1230. 03:50 Pt refusing daily lab work, FREDI Decker notified. NO new orders Patient Name: Apoorva Gonzalez Patient : 1950 Acct: [id number] Date of Admission: 11/12/2024 [facility]: [facility] A Code Status: DNR-CCA Allergies: Allergies[1] Diagnosis: [...] 23.2 (L) 11/13/2024 1312 PLT 495 (H) 11/13/2024 0001 NA 137 11/13/20242422 K 4.0 11/13/20242422 CL 103 11/13/2024 0001 CO2 23 11/13/20242422 BUN 16 11/13/20242422 CREATININE 3.51 (H) 11/13/20242422 CALCIUM 7.6 (L) 11/13/20242422 PHOS 2.7 10/26/2024 0657 IV Drips and Rate/Dose Continuous Meds[3] Safety - Before each treatment: Dialysis Machine No.: [id number] Machine Number: [id number] Dialyzer Lot No.: [id number] Tubing Lot Number: [id number] All Connections Secure: Yes Venous Parameters Set: Yes Arterial Parameters Set: Yes NS Bag: Yes Saline Line Double Clamped: Yes Dialyzer: Nipro Prime Volume (mL): 200 mL RO Machine Number: [id number] RO Machine Log Sheet Completed: Yes Machine Alarm Self Test: Completed, Passed (The machine passed all tests at 1208) (11/14/24 1209) Air Foam Detector: Proper Function, Tested Extracorporeal Circuit Tested for Integrity: Yes Machine Conductivity: 13.8 Manual Conductivity: 13.6 Manual Ph: 7.2 Bleach Test (Neg): Yes Bath Temperature: 36 C (96.8 F) Conductivity Meter Serial #: [id number] Machine Functioning Alarm Free? Yes Dialysis Bath: K+ (Potassium): 2 Ca+ (Calcium): 2.5 Na+ (Sodium): 137 HCO3 (Bicarb): 33 Chlorine Testing - Before each treatment and every 4 hours: Time On: 1235 Time Off: 1547 Treatment Goal: 1L Weight Height: 162.6 cm (5' 4") (11/14/24 0625) Weight: 53.1 kg (117 lb) [...] -- -- -- -- 1.626 m (5' 4") 11/14/24 0306 146/80 36.4 C (97.6 F) [...] and report given to Primary RN at 1548. Primary RN (First Initial, Last Name, Title): [...] (HCC) [3] 03:30 Pt refusing blood work. DRYING CAN WORKER dori made aware. documented in this encounter [facility] 11-15-2024 Miscellaneous Notes Patient Choice Patient Name: APOORVA GONZALEZ Date of : 1950 All Providers Sent Referral Name: [facility] Phone: [phone] Address: [address] [place] [address] MAR & Discharge med list transmitted to [facility] via [facility] per [facility] request. TCC received discharge order. SHERIE completed and bedside nurse aware. [facility] spoke with the patient to make her aware and she agreed to pay any applicable cost for cot transport after TCC explained she could call her insurance to request cost information. Set up cot transport for 12:30 pm with [facility] [employer] ([phone]). The patient asked that [facility] call her brother/REJI Hess to make him aware. TCC spoke with Stephanie via phone and provided verbal explanation of CUEN[place]. He denied any need to appeal discharge. [facility] set up transport via cot at 12:30 pm, making the patient, Dinaheidie, bedside nurse, community support professional and SNF aware of transport time. TCC tasked AGRICULTURAL SCIENCES PROFESSOR to send DC paperwork to SNF. DELICATESSEN CLERK spoke with Deshawn- [phone] son regarding [employer] benefits during a skilled stay in a facility. How insurance dictates skilled time in a SNF. Educated on medicaid, rules, and Patient liability in a SNF. DELICATESSEN CLERK assisted with medicaid application and faxed to [email or web address] to sign paperwork and send back to DELICATESSEN CLERK to file with Gauri Hensley. wafer polishing worker to follow. Referral [facility] to [facility] per [facility] request. Await review and response [...] return to the facility. - TCC tasked AGRICULTURAL SCIENCES PROFESSOR to initiate referral in [facility]. - TCC spoke with admission staff May at [facility] who verified a new auth will be needed for the patient to return to the facility. - TCC tasked AGRICULTURAL SCIENCES PROFESSOR to initiate [employer] authorization and updated attending that authorization will be need to be approved before the patient can be discharge back to her SNF. Attending acknowledged the update. _ TCC will continue to follow. Patient is from a SNF. 30 day readmission is not warranted. documented in this encounter [facility] 11-15-2024 Progress note Formatting of t his note might be different from the original. Patient Choice Patient Name: APOORVA GONZALEZ Date of : 1950 All Providers Sent Referral Name: [facility] Phone: [phone] Address: [address] [place] [address] [facility] 11-15-2024 Progress note Formatting of t his note might be different from the original. MAR & Discharge med list transmitted to [facility] via [facility] per TCC request. [facility] 11-15-2024 Progress note Formatting of t his note might be different from the original. TCC received discharge order. SHERIE completed and bedside nurse aware. TCC spoke with the patient to make her aware and she agreed to pay any applicable cost for cot transport after [facility] explained she could call her insurance to request cost information. Set up cot transport for 12:30 pm with [facility] [facility] [employer] ([phone]). The patient asked that [facility] call her brother/REJI Hess to make him aware. [facility] spoke with Stephanie via phone and provided verbal explanation of CUENCA. He denied any need to appeal discharge. [facility] set up transport via cot at 12:30 pm, making the patient, Dinaheidie, bedside nurse, community support professional and SNF aware of transport time. [facility] tasked AGRICULTURAL SCIENCES PROFESSOR to send DC paperwork to SNF. [facility] 11-15-2024 History of Present illness Narrative Nephrology [...] (Temporal) Resp 16 Ht 1.626 m (5' 4") Wt 49.6 kg (109 lb 4.8 oz) [...] any questions or concerns Karis Stone APRN 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 A-G DRYING CAN WORKER [facility] [place] [phone] I reviewed with Karis Stone APRN-TAMIR the saavedra portions of the medical history and the findings on physical examination. I discussed the patient s saavedra portions of the diagnosis and concur with the treatment plan as documented in her note. Please message me through [employer] with any questions or concerns. Sean Castaneda [...] a PMHx of CKD, ESRD on HD (//Wed), history of blood transfusion, HTN, and seizure disorder who presents as a direct transfer from [facility] due to complications of left upper extremity [...] on November 05, 2024. On evaluation at [facility] ER, pt was noted to have [...] by nephrology with plan to continue with T--Sat HD treatments. Last HD 11/11 with 1000ml removed. Hgb in ED noted to be 7.1, repeat prior to discharge 7.2. Plan was for discharge back to [facility] 11/13/24 however pt requires new authorization from [facility] to return to the facility. Patient currently [...] On: Kcal/kg Weight Used for Energy Requirements: [place] Weight for Energy Calculation (kg): 55 kg Total Energy Requirements (kcals/day): 2261-7043 kcal/day (30-35) Weight Used for Protein Requirements: [place] Weight in Kg Used for Protein Requirements: 55 kg Estimated Total Protein (g/day): 55-66 g/day (1-1.2) Estimated Daily Total Fluid (ml/day): 5620-9007 ml/day Nutrition Related Findings: Arnol: 17. I&O: [...] Ordered Anthropometric Measures: Height: 162.6 cm (5' 4") Current Body Weight: 53.1 kg (117 lb) (11/12/24) Weight Source: Other (Comment) (Estimated) Admission Body Weight: 53.1 kg (117 lb) (11/12/24 Estimated) Usual Body Weight: (Per EMR--> 110# 08/09/23; 105.4# 03/03/24; 112# 06/09/24; 107.8# 08/26/24; 114.4# 10/06/24 bed scale, 11/07/24 120# bed scale) [place] Body Weight (lbs) (Calculated): 120 lbs [place] Body Weight (Kg) (Calculated): 55 kg % [place] Body Weight (Calculated): 97.5 % BMI (kg/m2) [...] soon to determine Rose Pizarro RD Contact: *[phone] Nephrology Progress Note Following for ESRD Pt seen on HD clotted machine last treatment will use rinses q 30 min to aid Denies cP SOB NV or cramping Current Inpatient Medications: Reviewed on JUN. Vitals: BP 145/66 Pulse 52 Temp 36.7 C (98.1 F) (Temporal) Resp 17 Ht 1.626 m (5' 4") Wt 53.1 kg (117 lb) SpO2 100% [...] any questions or concerns Karis Stone APRN 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 A-G DRYING CAN WORKER [facility] [place] [phone] Pt seen and examined independently by me. I reviewed with MAYANK Mensah the saavedra portions of the medical history and the findings on physical examination. I discussed the patient s saavedra portions of the diagnosis and concur with the treatment plan as documented in her note. Please message me through [employer] with any questions or concerns. Sean Castaneda MD Hospitalist Progress Note 11/14/2024 Subjective: Admit Date: 11/12/2024 PCP: Roxie Spain Room#: 1C-134/1C-134 A BRIEF HOSPITAL COURSE: Apoorva is a 74 y.o. female with past medical history of CKD, hemodialysis (/), history of blood transfusion, Hypertension, and seizure disorder who presents from [facility] with chief complaint of left upper extremity graft site complication with bloody drainage. She presents as a direct transfer from [facility] due to complications of left upper extremity [...] on November 05, 2024. On evaluation at [facility] ER she was noted to have a white count of 10.9 (down trended from 12.6 the day prior. Hemoglobin 9.3 (increased from 7.0 the day prior). BMP grossly unremarkable for ESRD patient. ED physician at [facility] discussed with vascular surgery and plan for admit with vascular surgery consult. Case was discussed with [place] emergency room physician and will plan to [...] 7.2. Plan [facility] 11/13/24 however pt requires new authorization from [facility] to return to the facility. Interval History: Pt seen and evaluated sitting in bed, NAD. Dressing to LUE C/D/I, sensation intact, pulses palpable. Plan for HD treatment today. Auth pending for [facility]. Pt noted to have refused AM [...] 12 11 LIVER PROFILE:No results for input(s): "AST", "ALT", "BILITOT", "ALKPHOS", "PROT" in the last 72 hours. No lab exists for component: LABALBU PT/INR: No results for input(s): "PROTIME", "INR" in the last 72 hours. CARDIAC ENZYMES: No results for input(s): "TROPONINI" in the last 72 hours. Procalcitonin: No results found for: "PROCAL" COVID-19 PCR: No results for input(s): "COVID19" in the last 72 hours. Objective: Vitals: BP 130/72 (BP Location: Right arm, Patient Position: Sitting) Pulse 58 Temp 36.8 C (98.3 F) (Temporal) Resp 17 Ht 5' 4" (1.626 m) Wt 117 lb (53.1 kg) [...] for tx today - Discharge back to [facility] pending auth - am labs, replace [...] Emergency Contact: Deshawn Crystal Mobile Relation: Brother Elementary School Teacher'S Aide needed? No Secondary Emergency Contact: Edward Ruggiero Mobile Relation: Significant Other Preferred language: [employer] Teacher'S Aide needed? No Kailyn Juárez APRN - [facility] Division of Hospitalist Medicine [facility] [1] Past Medical History: Diagnosis Date [...] nitrate, , Topical, Once Xeroform Petrolat Gauze 5"x9", 1 each, Topical, Daily [3] PRN medications: collagenase, naloxone, ondansetron ODT OR ondansetron, oxyCODONE, polyethylene glycol (PEG) 3350 [4] Hospitalist Progress Note 11/13/2024 Subjective: Admit Date: 11/12/2024 PCP: Roxie Spain Room#: 1C-134/1C-134 A BRIEF HOSPITAL COURSE: Apoorva is a 74 y.o. female with past medical history of CKD, hemodialysis (//Wed), history of blood transfusion, Hypertension, and seizure disorder who presents from [facility] with chief complaint of left upper extremity graft site complication with bloody drainage. She presents as a direct transfer from [facility] due to complications of left upper extremity [...] on November 05, 2024. On evaluation at [facility] ER she was noted to have a white count of 10.9 (down trended from 12.6 the day prior. Hemoglobin 9.3 (increased from 7.0 the day prior). BMP grossly unremarkable for ESRD patient. ED physician at [facility] discussed with vascular surgery and plan for admit with vascular surgery consult. Case was discussed with [place] emergency room physician and will plan to [...] 7.2. Plan was for discharge back to [facility] today 11/13/24 however pt requires new authorization from [facility] to return to the facility. Interval History: [...] 12 11 LIVER PROFILE:No results for input(s): "AST", "ALT", "BILITOT", "ALKPHOS", "PROT" in the last 72 hours. No lab exists for component: LABALBU PT/INR: No results for input(s): "PROTIME", "INR" in the last 72 hours. CARDIAC ENZYMES: No results for input(s): "TROPONINI" in the last 72 hours. Procalcitonin: No results found for: "PROCAL" COVID-19 PCR: No results for input(s): "COVID19" in the last 72 hours. Objective: Vitals: BP 126/78 (BP Location: Right arm, Patient Position: Sitting) Pulse 93 Temp 36.6 C (97.8 F) (Temporal) Resp 17 Ht 5' 4" (1.626 m) Wt 117 lb (53.1 kg) [...] Emergency Contact: Deshawn Crystal Mobile Relation: Brother Elementary School Teacher'S Aide needed? No Secondary Emergency Contact: Edward Ruggiero Mobile Relation: Significant Other Preferred language: [employer] Teacher'S Aide needed? No PARK Madison CNP Division of Hospitalist Medicine [facility] [1] Past Medical History: Diagnosis Date Chronic kidney disease (CKD) Hemodialysis patient (CMS/HCC) ([facility]) Wednesday, , Wednesday History of blood transfusion 02/27/2022 Hypertension Seizure ([facility]) Developed seizure-like activity on 02/24 during hospital admission [2] acetaminophen, 1,000 mg, Oral, q8h amLODIPine, 5 mg, Oral, Daily collagenase, , Topical, Daily levETIRAcetam, 500 mg, Oral, Daily melatonin, 5 mg, Oral, Nightly sevelamer carbonate, 800 mg, Oral, TID WC silver nitrate, , Topical, Once Xeroform Petrolat Gauze 5"x9", 1 each, Topical, Daily [3] PRN medications: collagenase, naloxone, ondansetron ODT OR ondansetron, oxyCODONE, polyethylene glycol (PEG) 3350 [4] Images from the original note were not included. PHYSICAL THERAPY [facility] Initial Evaluation Name/MRN: Apoorva Gonzalez ([id number]) Evaluation Date: 11/13/2024 Date of : 1950 [...] Diagnosis Date Noted Wound dehiscence 11/12/2024 Seizures ([facility]) 11/02/2024 ESRD (end stage renal disease) ([facility]) 11/02/2024 Dialysis patient ([facility]) 11/02/2024 Sepsis, due to unspecified organism, unspecified whether acute organ dysfunction present ([facility]) 10/22/2024 Edema of left lower extremity 10/05/2024 COVID-19 09/14/2024 Shortness of breath 03/02/2024 Pulmonary edema, acute ([facility]) 02/19/2024 Gastrointestinal hemorrhage, unspecified gastrointestinal hemorrhage type [...] Raw Score (No Stairs) : 12 JH-HLM -HLM Score: Static standing (1 or more minutes) [...] Therapy Time Individual Co-Treatment Co-Evaluation Time In 0923 Time Out 0940 Minutes 17 Isatu Quinonez, PT Patient's Physical Therapy Plan of Care supervision is transferred to a [facility] Physical Therapist. Goals and/or treatment plan was established in collaboration with patient/family/other representatives. [1] Past Medical History: Diagnosis Date Chronic kidney disease (CKD) Hemodialysis patient ([facility]/HCC) (HCC) Wednesday, , Wednesday History of blood transfusion 02/27/2022 Hypertension Seizure (HCC) Developed seizure-like activity on 02/24 during hospital admission [2] Past Surgical History: Procedure Laterality Date AV FISTULA PLACEMENT Left 08/07/2022 COLONOSCOPY N/A 01/25/2024 Performed by Chrissy Gilman MD at [facility] IR CVC TUNNELED DIALYSIS CATHETER PLACEMENT 02/27/2022 IR CVC TUNNELED CATHETER PLACEMENT 02/27/2022 Candis Andrade MD [facility] SPECIAL PROCEDURES IR EMBOLIZATION 01/24/2024 IR EMBOLIZATION 01/24/2024 Jovan Glynn MD [facility] SPECIAL PROCEDURES Images from the original note were not included. Department of Vascular Surgery PATIENT NAME: Apoorva Gonzalez : 1950 ATTENDING PHYSICIAN: Edson Graham MD ADMIT DATE: 11/12/2024 TODAY'S DATE: 11/13/2024 [...] (98.4 F) (Temporal) Resp 18 Ht 5' 4" (1.626 m) Wt 117 lb (53.1 kg) [...] Results from last 7 days Lab Units 08/11/25 0001 11/12/24 1450 11/11/24 0539 WBC AUTO [...] of management per medicine - WDW Dr. Rojas this am Chris Wills MD PGY-1, Urology Pager# [phone] 11/13/2024 7:31 AM Addendum 9:04 AM Plan [...] Jim Rader MD PGY-4, General Surgery Pager# [phone] 11/13/2024 9:12 AM [1] acetaminophen, 1,000 mg, Oral, q8h amLODIPine, 5 mg, Oral, Daily collagenase, , Topical, Daily levETIRAcetam, 500 mg, Oral, Daily melatonin, 5 mg, Oral, Nightly sevelamer carbonate, 800 mg, Oral, TID WC silver nitrate, , Topical, Once sulfamethoxazole-trimethoprim, 1 tablet, Oral, Daily Cosigned by Raffy Rojas MD at 11/13/2024 11:38 AM EDT Associated attestation - Raffy Rojas MD - 11/13/2024 11:38 AM EDT I [...] vascular surgery standpoint. documented in this encounter [facility] 11-15-2024 Nurse Note 03:50 Pt refusing daily lab work, FREDI Decker notified. NO new orders [facility] 11-14-2024 Nurse Note Patient Name: Apoorva Gonzalez Patient : 1950 Acct: [id number] Date of Admission: 11/12/2024 [facility] Code Status: DNR-CCA Allergies: Allergies[1] Diagnosis: [...] to treatment, but not oriented x3. Patient's Deshawn DE LEÓN, called to obtain consent for this admission. [...] 4.0 11/13/20242422 CL 103 11/13/20242422 CO2 23 11/13/2024 0001 BUN 16 11/13/2024 0001 CREATININE 3.51 (H) 11/13/20242422 CALCIUM 7.6 (L) 11/13/20242422 PHOS 2.7 10/26/2024 0657 IV Drips and Rate/Dose Continuous Meds[3] Safety - Before each treatment: Dialysis Machine No.: [id number] Machine Number: [id number] Dialyzer Lot No.: [id number] Tubing Lot Number: [id number] All Connections Secure: Yes Venous Parameters Set: Yes Arterial Parameters Set: Yes NS Bag: Yes Saline Line Double Clamped: Yes Dialyzer: Nipro Prime Volume (mL): 200 mL Machine Number: [id number] RO Machine Log Sheet Completed: Yes Machine Alarm Self Test: Completed, Passed (The machine passed all tests at 1208) (11/14/24 1209) Air Foam Detector: Proper Function, Tested Extracorporeal Circuit Tested for Integrity: Yes Machine Conductivity: 13.8 Manual Conductivity: 13.6 Manual Ph: 7.2 Bleach Test (Neg): Yes Bath Temperature: 36 C (96.8 F) Conductivity Meter Serial #: [id number] Machine Functioning Alarm Free? Yes Dialysis Bath: K+ (Potassium): 2 Ca+ (Calcium): 2.5 Na+ (Sodium): 137 HCO3 (Bicarb): 33 Chlorine Testing - Before each treatment and every 4 hours: Time On: 1235 Time Off: 1547 Treatment Goal: 1L Weight Height: 162.6 cm (5' 4") (11/14/24 0625) Weight: 53.1 kg (117 lb) [...] 100mL flush performed for patency. UF Removed- 14711/14/24 1500 400 mL/min 1160 ml/hr -190 mmHg [...] -- -- -- -- 1.626 m (5' 4") 11/14/24 0306 146/80 36.4 C (97.6 F) [...] and report given to Primary RN at 1548. Primary RN (First Initial, Last Name, Title): [...] End stage congestive heart failure (HCC) [3] [facility] 11-14-2024 Consult note Associated Order (s): IP CONSULT TO PSYCHIATRY Images from the original note were not included. [facility] Department of Psychiatry Nurse Practitioner Consult Note Please contact [facility] Listed in [facility] On-Call Finder Mon-Fri: From 1700 - 0800 and Weekends IDENTIFYING INFORMATION Name: Apoorva Navarro Cross : 1950 TODAY'S DATE: 11/14/24 ADMISSION DATE: 11/12/2024 Reason for Psychiatric Consult: depression, hallucinations Requesting Physician: Dr. Castaneda Consulting Practitioner: Daisy Mancuso APRN-TAMIR Hospital Day: 2 SUBJECTIVE: CHIEF COMPLAINT: CC: Chief Complaint Patient presents with Wound Check EMS from [place] for bleeding fistula in left upper arm. DC from [facility] to [place] previously. Principal Problem: Wound dehiscence History obtained from: Patient, Chart Review, and Staff HISTORY OF PRESENT ILLNESS: HPI: Apoorva Gonzalez is a 74 y.o., female who was hospitalized at [facility] for Wound dehiscence on 11/12/2024. PMH of hypertension, ESRD, seizure, hemodialysis (Wednesday, , Wednesday), PSH AV graft placement (Dr. 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 Pt sent to ED by facility due to increased bleeding at site and transferred to [facility] for vascular surgery eval. Psychiatry consulted for depression and hallucinations. Today, pt is seen receiving dialysis, pt is alert and oriented x 2, and is cooperative with interview. Recent hospitalization from 10/22-11/11/2024 at which time pt lacked capacity for medical decision making due to encephalopathy, discharged to SNF, returned to ED on 11/12/2024. Pt reports she has "ups and downs" but does not generally feel depressed. States [...] PAST SURGICAL HISTORY Surgical History[5] Social History: [facility] since last hospitalization, finds family to [...] Depression: Not at risk (08/31/2024) Received from [facility] PHQ-2 Patient Health Questionnaire-2 Score: 0 Housing Stability: Low Risk (10/31/2024) Housing Stability Vital Sign Unable to Pay for Housing in the Last Year: No Number of Times Moved in the Last Year: 0 Homeless in the Last Year: No Utilities: Not At Risk (10/31/2024) [facility] Utilities Threatened with loss of utilities: No Health Literacy: Not on file OBJECTIVE: PHYSICAL/PSYCHIATRIC EXAM: Vitals: Vitals: 11/14/24 1445 11/14/24 1500 11/14/24 1515 11/14/24 1530 BP: 150/72 145/91 160/79 135/96 BP Location: Patient Position: Pulse: 74 78 81 84 Resp: Temp: TempSrc: SpO2: Weight: Height: Physical Exam: Physical Exam Vitals and nursing note reviewed. Exam conducted with a oncology pharmacist present. Constitutional: Appearance: Normal appearance. HENT: Head: [...] QT Interval 338 QTC Interval 458 P [place] 53 QRS [place] 10 T Wave [place] 161 [place] Interval 107 Impression Sinus tachycardia [...] Follow up: peripherally as able Please contact [facility] Listed in [facility] On-Call Finder for urgent needs Mon-Fri: [...] q8h, Jamie Fling, DO, 1,000 mg at 11/14/24 0745 amLODIPine (Norvasc) tablet 5 mg, 5 mg, Oral, Daily, Jamie Fling, DO, 5 mg at 11/14/24 0745 diphenhydrAMINE (BENADryl) injection 25 mg, 25 mg, IntraVENous, q6h PRN, Kailyn Juárez APRN - 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 levETIRAcetam (Keppra) tablet 500 mg, 500 mg, [...] Date Chronic kidney disease (CKD) Hemodialysis patient ([facility] ([facility]) Wednesday, , Wednesday History of blood transfusion [...] 01/25/2024 Performed by Chrissy Gilman MD at [facility] ENDOSCOPY IR CVC TUNNELED DIALYSIS CATHETER PLACEMENT 02/27/2022 IR CVC TUNNELED CATHETER PLACEMENT 02/27/2022 Candis Andrade MD [facility] SPECIAL PROCEDURES IR EMBOLIZATION 01/24/2024 IR EMBOLIZATION 01/24/2024 Jovan Glynn MD [facility] SPECIAL PROCEDURES [6] Social History [...] dehiscence End [facility]: [facility]24 Consult note Associated Order (s): IP CONSULT TO PSYCHIATRY Images from the original note were not included. [facility] Department of Psychiatry Nurse Practitioner Consult Note Please contact [facility] Listed in [facility] On-Call Finder Mon-Fri: From 1700 - 0800 and Weekends IDENTIFYING INFORMATION Name: Apoorva Gonzalez : 1950 TODAY'S DATE: 11/14/24 ADMISSION DATE: 11/12/2024 Reason for Psychiatric Consult: depression, hallucinations Requesting Physician: Dr. Castaneda Consulting Practitioner: MAYANK Mckenzie Hospital Day: 2 SUBJECTIVE: CHIEF COMPLAINT: CC: Chief Complaint Patient presents with Wound Check EMS from [place] for bleeding fistula in left upper arm. DC from [facility] to [place] previously. Principal Problem: Wound dehiscence History obtained from: Patient, Chart Review, and Staff HISTORY OF PRESENT ILLNESS: HPI: Apoorva Gonzalez is a 74 y.o., female who was hospitalized at [facility] for Wound dehiscence on 11/12/2024. PMH of hypertension, ESRD, seizure, hemodialysis (Wednesday, , Wednesday), PSH AV graft placement (Dr. 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 Pt sent to ED by facility due to increased bleeding at site and transferred to [facility] for vascular surgery eval. Psychiatry consulted for depression and hallucinations. Today, pt is seen receiving dialysis, pt is alert and oriented x 2, and is cooperative with interview. Recent hospitalization from 10/22-11/11/2024 at which time pt lacked capacity for medical decision making due to encephalopathy, discharged to SNF, returned to ED on 11/12/2024. Pt reports she has "ups and downs" but does not generally feel depressed. States [...] PAST SURGICAL HISTORY Surgical History[5] Social History: [facility] since last hospitalization, finds family to [...] Depression: Not at risk (08/31/2024) Received from [facility] PHQ-2 Patient Health Questionnaire-2 Score: 0 Housing Stability: Low Risk (10/31/2024) Housing Stability Vital Sign Unable to Pay for Housing in the Last Year: No Number of Times Moved in the Last Year: 0 Homeless in the Last Year: No Utilities: Not At Risk (10/31/2024) [facility] Utilities Threatened with loss of utilities: No Health Literacy: Not on file OBJECTIVE: PHYSICAL/PSYCHIATRIC EXAM: Vitals: Vitals: 11/14/24 1445 11/14/24 1500 11/14/24 1515 11/14/24 1530 BP: 150/72 145/91 160/79 135/96 BP Location: Patient Position: Pulse: 74 78 81 84 Resp: Temp: TempSrc: SpO2: Weight: Height: Physical Exam: Physical Exam Vitals and nursing note reviewed. Exam conducted with a oncology pharmacist present. Constitutional: Appearance: Normal appearance. HENT: Head: [...] QT Interval 338 QTC Interval 458 P [place] 53 QRS [place] 10 T Wave [place] 161 [place] Interval 107 Impression Sinus tachycardia [...] Follow up: peripherally as able Please contact [facility] Listed in [facility] On-Call Finder for urgent needs Mon-Fri: [...] q8h, Jamie Fling, DO, 1,000 mg at 11/14/24 0745 amLODIPine (Norvasc) tablet 5 mg, 5 mg, Oral, Daily, Jamie Fling, DO, 5 mg at 11/14/24 0745 diphenhydrAMINE (BENADryl) injection 25 mg, 25 mg, IntraVENous, q6h PRN, Kailyn Juárez APRN - 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 levETIRAcetam (Keppra) tablet 500 mg, 500 mg, [...] 08/07/2022 COLONOSCOPY N/A 01/25/2024 Performed by Chrissy Gimlan MD at [facility] ENDOSCOPY IR CVC TUNNELED DIALYSIS CATHETER PLACEMENT 02/27/2022 IR CVC TUNNELED CATHETER PLACEMENT 02/27/2022 Candis Andrade MD [facility] SPECIAL PROCEDURES IR EMBOLIZATION 01/24/2024 IR EMBOLIZATION 01/24/2024 Jovan Glynn MD [facility] SPECIAL PROCEDURES [6] Social History [...] dehiscence End stage congestive heart failure (HCC) Associated Order(s): Inpatient consult to Nephrology [facility] Consult Note Inpatient consult to Nephrology Consult performed by: Karis Stone NP Consult ordered by: Aramis Blankenship MD HPI Patient is a 74 y.o. female who is admitted to hospital with complaints of bleeding AVG site . Nephrology consulted in view of ESRD. PMHx hypertension, ESRD, seizure, hemodialysis (Wednesday, , Wednesday), PSH AV graft placement (Dr. 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 Patient was admitted 10/22-11/11. During that time her graft was excised, she underwent repeat surgery for hematoma evacuation, infectious disease was consulted and recommended Bactrim renally dosed through November 13.pt presented to ED from facility with increased bleeding from avg site. She was transferred to [facility] for vascular surgery evaluation. Pt [...] (Temporal) Resp 17 Ht 1.626 m (5' 4") Wt 53.1 kg (117 lb) SpO2 100% [...] any questions or concerns Karis Stone APRN 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 A-G DRYING CAN WORKER [facility] [phone] Pt seen and examined independently by me. I reviewed with MAYANK Mensah the saavedra portions of the medical history and the findings on physical examination. I discussed the patient s saavedra portions of the diagnosis and concur with the treatment plan as documented in her note. Please message me through [employer] with any questions or concerns. Sean Castaneda [...] Daily, Jamie Fling, DO, 5 mg at 11/13/24907 collagenase 250 UNIT/GM ointment, , Topical, PRN, [...] Nightly, Jamie Fling, DO, 5 mg at 08/10/25 1920 naloxone (Narcan) injection 0.4 mg, 0.4 [...] , Wednesday), PSH AV graft placement (Dr. 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 Patient was admitted 10/22-11/11. During that time her graft was excised, she underwent repeat surgery for hematoma evacuation, infectious disease was consulted and recommended Bactrim renally dosed through November 13. She represented today at [facility] from intermediate for bleeding from her LUE former graft site. She was transferred to [facility] for vascular surgery evaluation. Work [...] tomorrow after repeat evaluation - LAURA Jimenez dictaphone typist for Dr. Rojas Medical History[1] Surgical History[2] Current Medications: Continuous [...] 12.3 (H) 09/17/2024 No results found for: "VLDL" PHYSICAL EXAM: Vitals: 11/12/24 1724 BP: 151/86 [...] present, keeps thinking she is in her intermediate Psychiatric: Mood and Affect: Mood normal. Behavior: [...] History of blood transfusion 02/27/2022 Hypertension Seizure ([facility]) Developed seizure-like activity on 02/24 during hospital admission [2] Past Surgical History: Procedure Laterality Date AV FISTULA PLACEMENT Left 08/07/2022 COLONOSCOPY N/A 01/25/2024 Performed by Chrissy Gilman MD at [facility] ENDOSCOPY IR CVC TUNNELED DIALYSIS CATHETER PLACEMENT 02/27/2022 IR CVC TUNNELED CATHETER PLACEMENT 02/27/2022 Candis Andrade MD [facility] SPECIAL PROCEDURES IR EMBOLIZATION 01/24/2024 IR EMBOLIZATION 01/24/2024 Jovan Glynn MD [facility] SPECIAL PROCEDURES [3] [4] PRN [...] 11:14 AM EDT documented in this encounter [facility] 11-14-2024 Progress note Formatting of t his note might be different from the original. DELICATESSEN CLERK spoke with [facility] [phone] son regarding [employer] benefits during a skilled stay in a facility. How insurance dictates skilled time in a SNF. Educated on medicaid, rules, and Patient liability in a SNF. DELICATESSEN CLERK assisted with medicaid application and faxed to [email or web address] to sign paperwork and send back to DELICATESSEN CLERK to file with [facility]. wafer polishing worker to follow. [facility] 11-14-2024 Nurse Note 03:30 Pt refusing blood work. BRAYDEN meadows made aware. [facility] 11-13-2024 Note Referral placed to [facility] per [facility] request. Await review and response regarding ability to accept. TCC notified. [facility] 11-13-2024 Progress note Formatting of t his note might be different from the original. Referral placed to [facility] via [facility] per TCC request. Await review and response regarding ability to accept. TCC notified. [facility] 11-13-2024 Progress note Formatting of t [...] return to the facility. - TCC tasked AGRICULTURAL SCIENCES PROFESSOR to initiate referral in [facility]. - TCC spoke with admission staff May at [facility] who verified a new auth will be needed for the patient to return to the facility. - TCC tasked AGRICULTURAL SCIENCES PROFESSOR to initiate [employer] authorization and updated attending that authorization will be need to be approved before the patient can be discharge back to her SNF. Attending acknowledged the update. _ TCC will continue to follow. [facility] 11-13-2024 Hospital Discharge instructions PARK Ramirez CNP [...] DNR-CCA Advance Directives: Y Admitting Physician: Edson Graham MD PCP: Roxie Spain Discharging Nurse: [facility] Unit/Room#: 1C-134/1C-134 A Discharging Unit Phone Number: [phone] Emergency Contact: Extended Emergency Contact Information Primary Emergency Contact: Deshawn Crystal Mobile Relation: Brother Elementary School Teacher'S Aide needed? No Secondary Emergency Contact: RuggieroEdward Mobile Relation: Significant Other Preferred language: [employer] Teacher'S Aide needed? No Past Surgical History: Past Surgical History: Procedure Laterality Date AV FISTULA PLACEMENT Left 08/07/2022 COLONOSCOPY N/A 01/25/2024 Performed by Chrissy Gilman MD at [facility] ENDOSCOPY IR CVC TUNNELED DIALYSIS CATHETER PLACEMENT 02/27/2022 IR CVC TUNNELED CATHETER PLACEMENT 02/27/2022 Candis Andrade MD [facility] SPECIAL PROCEDURES IR EMBOLIZATION 01/24/2024 IR EMBOLIZATION 01/24/2024 Jovan Glynn MD [facility] SPECIAL PROCEDURES Immunization History: Immunization [...] F) Resp 18 Ht 1.626 m (5' 4") Wt 53.1 kg (117 lb) SpO2 96% [...] assistance Toileting Minimal assistance Feeding Minimal assistance Gamb Cutter Independent Med Delivery yes Wound Care Documentation [...] on 11/12/24 Discharging to Facility/ Agency Name: [facility] Address: [address] [place] [id number] Fax: Dialysis Facility (if applicable) Name: Address: Dialysis Schedule: Phone: Fax: Supervisor Personnel Clerks/Medical Charge Entry Specialist signature: ICIAN SECTION Name: Apoorva Navarro Rajinder Prognosis: good Condition at Discharge: stable Rehab Potential (if transferring to Rehab): good Recommended Labs or Other Treatments After Discharge: NA The individual is being admitted to a nursing facility directly from an [facility] or a unit of a [facility] that is not operated by or licensed by [facility] under section 5119.14 or 5160-3-15.1 5 The individual requires the level of services provided by a nursing facility for the condition for which he or she was treated in the hospital and, Physician Certification: I certify the above information and transfer of Apoorva Gonzalez is necessary for the continuing treatment of the diagnosis listed and that she requires intermediate facility for less than 30 days. Update Admission H&P: No change in H&P PHYSICIAN SIGNATURE: documented in this encounter [facility] 11-13-2024 Consult note Associated Order (s): Inpatient consult to Nephrology [facility] Nephrology Consult Note Inpatient consult to Nephrology Consult performed by: Karis Stone NP Consult ordered by: Aramis Blankenship MD HPI Patient is a 74 y.o. female who is admitted to hospital with complaints of bleeding AVG site . Nephrology consulted in view of ESRD. PMHx hypertension, ESRD, seizure, hemodialysis (Wednesday, , Wednesday), PSH AV graft placement (Dr. 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 Patient was admitted 10/22-11/11. During that time her graft was excised, she underwent repeat surgery for hematoma evacuation, infectious disease was consulted and recommended Bactrim renally dosed through November 13.pt presented to ED from facility with increased bleeding from avg site. She was transferred to [facility] for vascular surgery evaluation. Pt [...] (Temporal) Resp 17 Ht 1.626 m (5' 4") Wt 53.1 kg (117 lb) SpO2 100% [...] with any questions or concerns Karis Stone TOOL ROOM ATTENDANT 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 A-G DRYING CAN WORKER [facility] [phone] Pt seen and examined independently by me. [...] Daily, Jamie Fling, DO, 5 mg at 11/13/24907 collagenase 250 UNIT/GM ointment, , Topical, PRN, Jamie Fling, DO collagenase 250 UNIT/GM ointment, , Topical, Daily, Jamie Fling, DO HYDROmorphone (Dilaudid) injection 0.25 mg, 0.25 mg, IntraVENous, q4h PRN, Jamie Fling, DO, 0.25 mg at 11/12/242255 levETIRAcetam (Keppra) tablet 500 mg, 500 mg, Oral, Daily, Jamie Fling, DO, 500 mg at 11/13/24907 melatonin tablet 5 mg, 5 mg, Oral, Nightly, Jamie Fling, DO, 5 mg at 11/12/241919 naloxone (Narcan) injection 0.4 mg, 0.4 mg, [...] OR ondansetron, oxyCODONE, polyethylene glycol (PEG) [address] [employer] [employer] 11-13-2024 Progress note Formatting of t his note might be different from the original. Patient is from a SNF. 30 day readmission is not warranted. [facility] [employer] 11-12-2024 Consult note Associated Order (s): IP CONSULT TO VASCULAR SURGERY Images from the original note were not included. Vascular Surgery Consultation Note Reason for Consult: LUE wound HISTORY OF PRESENT ILLNESS: The patient is a 74 y.o. female with PMHx hypertension, ESRD, seizure, hemodialysis (Wednesday, , Wednesday), PSH AV graft placement (Dr. 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 Patient was admitted 10/22-11/11. During that time her graft was excised, she underwent repeat surgery for hematoma evacuation, infectious disease was consulted and recommended Bactrim renally dosed through November 13. She represented today at [facility] from intermediate for bleeding from her LUE former graft site. She was transferred to [facility] for vascular surgery evaluation. Work [...] tomorrow after repeat evaluation - LAURA Jimenez dictaphone typist for Dr. Rojas Medical History[1] Surgical History[2] Current Medications: Continuous [...] 12.3 (H) 09/17/2024 No results found for: "VLDL" PHYSICAL EXAM: Vitals: 11/12/24 1724 BP: 151/86 [...] present, keeps thinking she is in her intermediate Psychiatric: Mood and Affect: Mood normal. Behavior: [...] 01/25/2024 Performed by Chrissy Gilman MD at [facility] ENDOSCOPY IR CVC TUNNELED DIALYSIS CATHETER PLACEMENT 02/27/2022 IR CVC TUNNELED CATHETER PLACEMENT 02/27/2022 Candis Andrade MD [facility] SPECIAL PROCEDURES IR EMBOLIZATION 01/24/2024 IR EMBOLIZATION 01/24/2024 Jovan Glynn MD [facility] SPECIAL PROCEDURES [3] [4] PRN [...] Jimenez MD at 11/13/2024 11:14 AM EDT [facility] [employer] Work Phone: 11-12-2024 History and physical note [...] She presents as a direct [facility] due to complications of left upper extremity [...] on November 05, 2024. On evaluation at [facility] ER she was noted to have a white count of 10.9 (down trended from 12.6 the day prior. Hemoglobin 9.3 (increased from 7.0 the day prior). BMP grossly unremarkable for ESRD patient. ED physician at [facility] discussed with vascular surgery and plan for admit with vascular surgery consult. Case discussed with [place] emergency room physician and will plan to [...] C (98.6 F) Resp 18 Ht 5' 4" (1.626 m) Wt 117 lb (53.1 kg) [...] PLT 382 480* 407 BMP: Recent Labs 11/10/2421711/11/24 0539 11/12/24 1525 NA 134* 138 140 K 4.0 4.5 4.0 CL 103 105 104 CO2 26 24 24 BUN 16 26* 15 CREATININE 2.81* 4.23* 3.37* GLUCOSE 67* 67* 78* CALCIUM 7.6* 7.3* 8.1* ANIONGAP 5 9 12 LIVER PROFILE:No results for input(s): "AST", "ALT", "BILITOT", "ALKPHOS", "PROT" in the last 72 hours. No lab exists for component: LABALBU PT/INR: No results for input(s): "PROTIME", "INR" in the last 72 hours. CARDIAC ENZYMES: No results for input(s): "TROPONINI" in the last 72 hours. Procalcitonin: No results found for: "PROCAL" Urine Culture: No results found for this or any previous visit. COVID-19 PCR: No results for input(s): "COVID19" in the last 72 hours. 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 No Secondary Emergency Contact: Edward Ruggiero Mobile Relation: Significant Other Preferred language: [employer] Teacher'S Aide needed? No [employer] Apoorva Gonzalez : 1950 Primary Care Physician: Roxie Spain The patient and/or family/surrogate voluntarily agreed to participate in ACP services. Patient s cognitive capacity: Intact Code Status: [_] [FULL CODE - Continue all advanced life support: CPR,intubation,invasive procedures] [X_] [DNR-CCA - DO NOT do CPR, intubation] [_] [DNR-QUICK TECHNICIAN - Comfort care only] [_] DNR [...] Jamie Camarena DO Division of Hospitalist Medicine [employer] [facility] [1] Past Medical History: Diagnosis Date Chronic kidney disease (CKD) Hemodialysis patient (CMS/HCC) (HCC) Wednesday, , Wednesday History of blood transfusion 02/27/2022 Hypertension Seizure ([facility]) Developed seizure-like activity on 02/24 during hospital admission [2] Past Surgical History: Procedure Laterality Date AV FISTULA PLACEMENT Left 08/07/2022 COLONOSCOPY N/A 01/25/2024 Performed by Chrissy Gilman MD at [facility] ENDOSCOPY IR CVC TUNNELED DIALYSIS CATHETER PLACEMENT 02/27/2022 IR CVC TUNNELED CATHETER PLACEMENT 02/27/2022 Candis Andrade MD [facility] SPECIAL PROCEDURES IR EMBOLIZATION 01/24/2024 IR EMBOLIZATION 01/24/2024 Jovan Glynn MD [facility] SPECIAL PROCEDURES [3] Family History Problem Relation Name Age of Onset Dementia Mother Stroke Father Prostate cancer Brother 69 Breast cancer Cousin 32 Stomach cancer Mother's Sister 70 [4] Current Facility-Administered Medications: acetaminophen (Tylenol) tablet 650 mg, 650 mg, Oral, q6h PRN OR acetaminophen (Tylenol) suppository 650 mg, 650 mg, Rectal, q6h PRN, Jamie Fling, DO acetaminophen (Tylenol) tablet 1,000 mg, 1,000 mg, Oral, q8h, Jamie Fling, DO [START ON 11/13/2024] amLODIPine (Norvasc) tablet 5 mg, 5 mg, Oral, Daily, Jamie Fling, DO collagenase 250 UNIT/GM ointment, , Topical, PRN, Jamie Fling, DO [START ON 11/13/2024] collagenase 250 UNIT/GM ointment, , Topical, Daily, Jamie Fling, DO HYDROmorphone (Dilaudid) injection 0.25 mg, 0.25 mg, IntraVENous, q4h PRN, Jamie Fling, DO [START ON 11/13/2024] levETIRAcetam (Keppra) tablet 500 mg, 500 mg, Oral, Daily, Jamie Fling, DO melatonin tablet 5 mg, 5 mg, Oral, Nightly, Jamie Fling, DO ondansetron ODT (Zofran-ODT) disintegrating tablet 4 mg, 4 mg, Oral, q8h PRN OR ondansetron (Zofran) injection 4 mg, 4 mg, IntraVENous, q6h PRN, Jamie Fling, DO oxyCODONE (Roxicodone) immediate release tablet 5 mg, 5 mg, Oral, q6h PRN, Jamie Fling, DO polyethylene glycol (PEG) 3350 (Miralax) packet 17 g, 17 g, Oral, Daily PRN, Jamie Camarena DO [START ON 11/13/2024] sevelamer carbonate (Renvela) tablet 800 mg, 800 mg, Oral, TID WC, Jamie Camarena DO [START ON 11/13/2024] sulfamethoxazole-trimethoprim (Bactrim DS) 800-160 MG per tablet 1 tablet, 1 tablet, Oral, Daily, Jamie Camarena DO [5] No Known Allergies [facility] [employer] Work Phone: 11-12-2024 Note [facility] [employer] [facility] 11-12-2024 History and physical note Attending History and Physical Admit Date: 11/12/2024 PCP: Roxie Spain CHIEF COMPLAINT: Left upper extremity wound Reason for Admission: Left upper extremity graft site complication History Obtained From: patient HISTORY OF PRESENT ILLNESS: Apoorva is a 74 y.o. female with past medical history below who presents with chief complaint listed above. She presents as a direct transfer from [facility] due to complications of left upper extremity [...] on November 05, 2024. On evaluation at [facility] ER she was noted to have a white count of 10.9 (down trended from 12.6 the day prior. Hemoglobin 9.3 (increased from 7.0 the day prior). BMP grossly unremarkable for ESRD patient. ED physician at [facility] discussed with vascular surgery and plan for admit with vascular surgery consult. Case discussed with [place] emergency room physician and will plan to [...] C (98.6 F) Resp 18 Ht 5' 4" (1.626 m) Wt 117 lb (53.1 kg) [...] She is alert. DATA: CBC: Recent Labs 11/10/2421711/11/2453811/12/24 1450 WBC 13.2* 12.6* 10.9* RBC 2.43* 2.39* 3.18* HGB 7.0* 7.0* 9.3* HCT 21.6* 21.8* 29.0* MCV 88.9 91.2 91.2 RDW 16.9* 17.1* 17.0* PLT 382 480* 407 BMP: Recent Labs 11/10/2421711/11/2453811/12/24 1525 NA 134* 138 140 K 4.0 4.5 4.0 CL 103 105 104 CO2 26 24 24 BUN 16 26* 15 CREATININE 2.81* 4.23* 3.37* GLUCOSE 67* 67* 78* CALCIUM 7.6* 7.3* 8.1* ANIONGAP 5 9 12 LIVER PROFILE:No results for input(s): "AST", "ALT", "BILITOT", "ALKPHOS", "PROT" in the last 72 hours. No lab exists for component: LABALBU PT/INR: No results for input(s): "PROTIME", "INR" in the last 72 hours. CARDIAC ENZYMES: No results for input(s): "TROPONINI" in the last 72 hours. Procalcitonin: No results found for: "PROCAL" Urine Culture: No results found for this or any previous visit. COVID-19 PCR: No results for input(s): "COVID19" in the last 72 hours. 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 No Secondary Emergency Contact: Edward Ruggiero Mobile Relation: Significant Other Preferred language: [employer] Teacher'S Aide needed? No [employer] Apoorva Navarro Rajinder : 1950 Primary Care Physician: Roxie Spain The patient and/or family/surrogate voluntarily agreed to participate in ACP services. Patient s cognitive capacity: Intact Code Status: [_] [FULL CODE - Continue all advanced life support: CPR,intubation,invasive procedures] [X_] [DNR-CCA - DO NOT do CPR, intubation] [_] [DNR-QUICK TECHNICIAN - Comfort care only] [_] DNR [...] Jamie Camarena DO Division of Hospitalist Medicine [facility] [1] Past Medical History: Diagnosis Date Chronic kidney disease (CKD) Hemodialysis patient (CMS/HCC) (HCC) Wednesday, , Wednesday History of blood transfusion 02/27/2022 Hypertension Seizure ([facility]) Developed seizure-like activity on 02/24 during hospital admission [2] Past Surgical History: Procedure Laterality Date AV FISTULA PLACEMENT Left 08/07/2022 COLONOSCOPY N/A 01/25/2024 Performed by Chrissy Gilman MD at [facility] ENDOSCOPY IR CVC TUNNELED DIALYSIS CATHETER PLACEMENT 02/27/2022 IR CVC TUNNELED CATHETER PLACEMENT 02/27/2022 Candis Andrade MD [facility] SPECIAL PROCEDURES IR EMBOLIZATION 01/24/2024 IR EMBOLIZATION 01/24/2024 Jovan Glynn MD [facility] SPECIAL PROCEDURES [3] Family History [...] mg, 1,000 mg, Oral, q8h, Jamie Camarena, DO [START ON 11/13/2024] amLODIPine (Norvasc) tablet [...] 500 mg, 500 mg, Oral, Daily, Jamie Camarena, DO melatonin tablet 5 mg, 5 mg, [...] No Known Allergies documented in this encounter [facility] 11-12-2024 Emergency department Note Moody Harman at bedside for transport to [facility] for admission. Packet/blue card sent with crew. [facility] 11-12-2024 Emergency department Note Moody Harman at bedside for transport to [facility] for admission. Packet/blue card sent with crew. Report called to [facility]. Pt awaiting transport, resting comfortably at this time, side rails up x2, curtain remains open for safety. Emergency Department Encounter [facility] ED Patient: Apoorva Gonzalez : [...] kg (117 lb) Height: 1.626 m (5' 4") The patient presented with a chief complaint [...] to admit the patient to medicine at [facility], and will see her inpatient. Patient care also discussed with Dr. Camarena, [facility] hospitalist, who accepted the patient for [...] for clarification.) Lorna Moore MD Acute Care [facility] Roz Moore MD 11/12/24 1444 documented in this encounter [facility] 11-12-2024 Emergency department Note Report called to [facility]. Pt awaiting transport, resting comfortably at this time, side rails up x2, curtain remains open for safety. [facility] 11-12-2024 Physician Emergency department Note Emergency Department Encounter [facility] ED Patient: Apoorva Gonzalez : [...] kg (117 lb) Height: 1.626 m (5' 4") The patient presented with a chief complaint [...] to admit the patient to medicine at [facility], and will see her inpatient. Patient care also discussed with Dr. Camarena, [facility] hospitalist, who accepted the patient for [...] contact the dictating provider for clarification.) Lorna Mooer MD Acute Care [facility] Roz Moore MD 11/12/24 1444 [facility] 11-11-2024 Nurse Note [facility] dc [facility]. Pt brother at bedside aware of dc. Patient Name: Apoorva Gonzalez Patient : 1950 Acct: [id number] Date of Admission: 10/22/2024 Room/Bed: [facility] A Code Status: DNR-CCA Allergies: [...] 12.6 (H) 11/11/2024 0539 HGB 7.0 (L) 11/11/2024538 HGB 9.1 10/05/2024 1419 HCT 21.8 (L) 11/11/2024538 PLT 480 (H) 11/11/2024 0539 NA 138 11/11/2024 0539 K 4.5 11/11/2024538 CL 105 11/11/2024 05 CO2 24 11/11/2024538 BUN 26 (H) 11/11/2024538 CREATININE 4.23 (H) 11/11/2024538 CALCIUM 7.3 (L) 11/11/2024538 PHOS 2.7 10/26/202457 IV Drips and Rate/Dose Continuous Meds[3] Safety - Before each treatment: Dialysis Machine No.: [id number] RO Machine Number: [id number] Dialyzer Lot No.: [id number] Tubing Lot Number: [id number] All Connections Secure: Yes Venous Parameters Set: Yes Arterial Parameters Set: Yes NS Bag: Yes Saline Line Double Clamped: Yes Dialyzer: Nipro Prime Volume (mL): 200 mL RO Machine Number: [id number] RO Machine Log Sheet Completed: Yes Machine Alarm Self Test: Completed, Passed (The machine passed all tests at 0925) (11/11/24935) Air Foam Detector: Tested, Proper Function Extracorporeal Circuit Tested for Integrity: Yes Machine Conductivity: 13.9 Manual Conductivity: 14.2 Manual Ph: 7.4 Bleach Test (Neg): Yes Bath Temperature: 36 C (96.8 F) Conductivity Meter Serial #: [id number] Machine Functioning Alarm Free? Yes Dialysis Bath: K+ (Potassium): 2 Ca+ (Calcium): 2.5 Na+ (Sodium): 138 HCO3 (Bicarb): 32 Bicarbonate Concentrate Lot No.: [id number] Acid Concentrate Lot No.: [id number] Chlorine Testing - Before each treatment and every 4 hours: Time On: 0946 Time Off: 1302 Treatment Goal: 1L Weight Height: 162.6 cm (5' 4") (10/26/24 1438) Weight: 53.2 kg (117 lb [...] venous pressure noted, BFR reduced. UF Removed- 18811/11/24 1302 0 mL/min 0 ml/hr -- -- [...] renal disease) (HCC) Dialysis patient (HCC) [3] Wound Care follow up visit for Pressure Injury Prevention. Pt's Arnol score= 14 on 11/10 Pt's pressure points assessed. Pt's Heels, Left elbow, Occiput and ears all intact. Rosey wrap in place to left upper extremity. [place] and blanchable tissues noted to bilateral heels. Pt currently followed by Wound DRYING CAN WORKER group for wounds to sacrum extending to left buttock. For sacrum/left buttock wound assessment and treatment plan, please see Wound/Ostomy DRYING CAN WORKER progress notes. Instructed pt on pressure injury prevention and importance of turning/postioning every 2hrs while in bed and every 15 min while sitting in chair. Instructed on use and care of waffle chair cushion. Verbalized understanding. Prevention Measures in place, including: [place] sheet with pillows/wedges, Foam heel protectors (obtained and applied), Heels elevated off bed on pillows, Zinc/Moisture Barrier ointment, Waffle chair cushion. Skin Care precaution order set in place. Will continue to follow pt. Please Vocera for any questions or concerns. Kirti High RN Patient Name: Apoorva Gonzalez Patient : 1950 Acct: [id number] Date of Admission: 10/22/2024 Room[facility]Bed: [facility] A Code Status: DNR-CCA Allergies: [...] Edema RLE Edema LLE Edema Pain Interventions 11/09/24 0357 -- -- -- Clear;Diminished -- -- -- -- -- -- -- -- -- 11/09/24 0432 -- -- -- -- -- -- -- -- -- -- -- -- Medication (See MAR);Repositioned 11/09/24 0752 Alert (0) 3 None (Room air) Clear;Diminished Other (Comment) Warm;Dry Soft;Rounded Active None None None None -- 11/09/24 0844 -- -- -- Diminished -- -- -- -- -- -- -- -- -- Labs Lab Results Component Value Date/Time WBC 16.0 (H) 11/09/2024 0226 HGB 8.6 (L) 11/09/2024749 HGB 9.1 10/05/2024 1419 HCT 25.9 (L) 11/09/2024749 PLT 414 11/09/2024225 NA 134 (L) 11/09/2024225 K 4.5 11/09/2024225 CL 102 11/09/2024225 CO2 24 11/09/2024225 BUN 24 (H) 11/09/2024225 CREATININE 4.02 (H) 11/09/2024225 CALCIUM 7.4 (L) 11/09/2024225 PHOS 2.7 10/26/2024656 IV Drips and Rate/Dose Continuous Meds[3] Safety - Before each treatment: Dialysis Machine No.: [id number] RO Machine Number: [id number] Dialyzer Lot No.: [id number] Tubing Lot Number: [id number] All Connections Secure: Yes Venous Parameters Set: Yes Arterial Parameters Set: Yes NS Bag: Yes Saline Line Double Clamped: Yes Dialyzer: Nipro Prime Volume (mL): 250 mL RO Machine Number: [id number] RO Machine Log Sheet Completed: Yes Machine Alarm Self Test: Completed, Passed (11/09/24751) Air Foam Detector: Tested, Proper Function, pH Reading Extracorporeal Circuit Tested for Integrity: Yes Machine Conductivity: 13.8 Manual Conductivity: 14 Manual Ph: 7.2 Bleach Test (Neg): Yes Bath Temperature: 36 C (96.8 F) Conductivity Meter Serial #: [id number] Machine Functioning Alarm Free? Yes Dialysis Bath: K+ (Potassium): 2 Ca+ (Calcium): 2.5 Na+ (Sodium): 138 HCO3 (Bicarb): 32 Bicarbonate Concentrate Lot No.: [id number] Acid Concentrate Lot No.: [id number] Chlorine Testing - Before each treatment and every 4 hours: Time On: 805 Time Off: 7 Treatment Goal: 1 kg Weight Height: 162.6 cm (5' 4") (10/26/24 1438) Weight: 52.8 kg (116 lb [...] 120 mmHg 70 600 Yes B. Marrow, 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 & vasc surgery at beside, increase UF goal if tolerated, 925 ml [...] (!) 172/111 -- -- 102 -- -- 11/09/24 0830 (!) 182/108 -- -- 108 -- -- [...] currently receiving 1 unit of blood. 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 Blood sugar 67 orange juice given pt resting quietly , denies any s/s of hypoglycemia. 1L removed Patient Name: Apoorva Gonzalez Patient : 1950 Acct: [id number] Date of Admission: 10/22/2024 Room/Bed: [facility] A Code Status: DNR-CCA Allergies: [...] Regular Other (Comment) None (Room air) Diminished [place] Warm;Dry Soft;Rounded Active Right lower extremity;Left lower extremity -- None None +1 +2 11/07/24 1259 Alert (0) x4 Regular Other (Comment) None (Room air) Diminished [place] Warm;Dry Soft;Rounded Active Right lower extremity;Left lower extremity -- None None +1 +2 Labs Lab Results Component Value Date/Time WBC 14.1 (H) 11/07/2024107 HGB 7.6 (L) 11/07/2024 010 HGB 9.1 10/05/2024 1419 HCT 23.6 (L) 11/07/2024 010 PLT 377 11/07/2024107 NA 139 11/07/2024 0108 K 4.8 11/07/2024107 CL 105 11/07/2024 0108 CO2 23 11/07/2024107 BUN 37 (H) 11/07/2024107 CREATININE 4.35 (H) 11/07/2024107 CALCIUM 7.2 (L) 11/07/2024107 PHOS 2.7 10/26/2024656 IV Drips and Rate/Dose Continuous Meds[3] Safety - Before each treatment: Dialysis Machine No.: [id number] RO Machine Number: [id number] Dialyzer Lot No.: [id number] Tubing Lot Number: [id number] All Connections Secure: Yes Venous Parameters Set: Yes Arterial Parameters Set: Yes NS Bag: Yes Saline Line Double Clamped: Yes Dialyzer: Nipro Prime Volume (mL): 200 mL RO Machine Number: [id number] RO Machine Log Sheet Completed: Yes Machine Alarm Self Test: Completed, Passed (11/07/24942) Air Foam Detector: Tested, Proper Function, pH Reading Extracorporeal Circuit Tested for Integrity: Yes Machine Conductivity: 13.6 Manual Conductivity: 13.4 Manual Ph: 7.4 Bleach Test (Neg): Yes Bath Temperature: 36 C (96.8 F) Conductivity Meter Serial #: [id number] Machine Functioning Alarm Free? Yes Dialysis Bath: K+ (Potassium): 2 Ca+ (Calcium): 2.5 Na+ (Sodium): 138 HCO3 (Bicarb): 32 Bicarbonate Concentrate Lot No.: [id number] Acid Concentrate Lot No.: [id number] Chlorine Testing - Before each treatment and every 4 hours: Time On: 0943 Time Off: 1243 Treatment Goal: 1 kg Weight Height: 162.6 cm (5' 4") (10/26/24 1438) Weight: 54.7 kg (120 lb [...] chat Response: Waiting for response Notification Time: 0754 Handoff complete and report given to Primary [...] Name: Apoorva Gonzalez Patient : 1950 Acct: [id number] Date of Admission: 10/22/2024 Room[facility]Bed: [facility] A Code Status: DNR-CCA Allergies: Allergies[1] Diagnosis: Problem List[2] Treatment: Hemodialysis 1:1 Priority: Routine Location: Bedside Diabetic: No NPO: No Isolation Precautions: Contact Consent for Treatment Verified: Yes Blood Consent Verified: Not Applicable ICEBOAT: Identify, Consent, Equipment, HepB Status, Orders Complete, Access Verified, Timeliness Second Clinician Verifying: Vi Renteria RN Time out performed prior to access at 194. Report Received from Primary RN at 0849. [...] Component Value Date/Time WBC 15.5 (H) 11/04/2024 0250 HGB 7.7 (L) 11/04/2024 0250 HGB 9.1 10/05/2024 1419 HCT 23.0 (L) 11/04/2024 0250 PLT 372 11/04/2024 0250 NA 139 11/04/2024 0100 K 4.0 11/04/2024 0100 CL 104 11/04/2024 0100 CO2 24 11/04/2024 0100 BUN 25 (H) 11/04/2024 0100 CREATININE 3.47 (H) 11/04/2024 0100 CALCIUM 7.2 (L) 11/04/2024 010 PHOS 2.7 10/26/2024 0657 IV Drips and Rate/Dose Continuous Meds[3] Safety - Before each treatment: Dialysis Machine No.: [id number] RO Machine Number: [id number] Dialyzer Lot No.: [id number] Tubing Lot Number: [id number] All Connections Secure: Yes Venous Parameters Set: Yes Arterial Parameters Set: Yes NS Bag: Yes Saline Line Double Clamped: Yes Dialyzer: Nipro Prime Volume (mL): 250 mL RO Machine Number: [id number] RO Machine Log Sheet Completed: Yes Machine Alarm Self Test: Completed, Passed (11/04/24 0940) Air Foam Detector: Tested, Proper Function, pH Reading Extracorporeal Circuit Tested for Integrity: Yes Machine Conductivity: 13.9 Manual Conductivity: 14 Manual Ph: 7.2 Bleach Test (Neg): Yes Bath Temperature: 36 C (96.8 F) Conductivity Meter Serial #: [id number] Machine Functioning Alarm Free? Yes Dialysis Bath: K+ (Potassium): 2 Ca+ (Calcium): 2.5 Na+ (Sodium): 138 HCO3 (Bicarb): 32 Bicarbonate Concentrate Lot No.: [id number] Acid Concentrate Lot No.: [id number] Chlorine Testing - Before each treatment and every 4 hours: Time On: 0950 Time Off: 1250 Treatment Goal: 1 kg Weight Height: 162.6 cm (5' 4") (10/26/24 1438) Weight: 55.2 kg (121 lb 11.2 oz) (11/04/24 06) BMI (Calculated): 20.88 (11/04/24 06) 1st check: less than 0.1 ppm at: [...] Name: Apoorva Gonzalez Patient : 1950 Acct: [id number] Date of Admission: 10/22/2024 Room[facility]Bed: [facility] A Code Status: DNR-CCA Allergies: [...] - Before each treatment: Dialysis Machine No.: [id number] Machine Number: [id number] Dialyzer Lot No.: [id number] Tubing Lot Number: [id number] All Connections Secure: Yes Venous Parameters Set: Yes Arterial Parameters Set: Yes NS Bag: Yes Saline Line Double Clamped: Yes Dialyzer: Nipro Prime Volume (mL): 200 mL RO Machine Number: [id number] Machine Log Sheet Completed: Yes Machine Alarm Self Test: Completed, Passed (The machine passed all tests at 1520.) (11/02/24 1527) Air Foam Detector: Proper Function, Tested Extracorporeal Circuit Tested for Integrity: Yes Machine Conductivity: 13.5 Manual Conductivity: 13.6 Manual Ph: 7.2 Bleach Test (Neg): Yes Bath Temperature: 36 C (96.8 F) Conductivity Meter Serial #: [id number] Machine Functioning Alarm Free? Yes Dialysis Bath: K+ (Potassium): 2 Ca+ (Calcium): 2.5 Na+ (Sodium): 138 HCO3 (Bicarb): 32 Bicarbonate Concentrate Lot No.: [id number] Acid Concentrate Lot No.: [id number] Chlorine Testing - Before each treatment and every 4 hours: Time On: 1532 Time Off: 183 Treatment Goal: 1L Weight Height: 162.6 cm (5' 4") (10/26/24 1438) Weight: 53.2 kg (117 lb [...] 80 600 Yes Patient's signifigant other at bediside, UF Removed- 746 11/02/24 1715 400 mL/min [...] number verified in chart Patient transferred to [facility] with the transport team.she is going to [facility] room number 637.Handoff given to the [facility] nurse. Patient Name: Apoovra Gonzalez Patient : 1950 Acct: [id number] Date of Admission: 10/22/2024 Room[facility]Bed: [facility] A Code Status: DNR-CCA Allergies: [...] 10/31/24 0815 -- -- -- -- -- [place];Red Warm;Dry Soft;Flat Active Left lower extremity;Right lower extremity Non-pitting None None None None 10/31/24 1116 Alert (0) 2 Regular None (Room air) Diminished [place] Warm;Dry Soft -- Left lower extremity -- -- -- -- +1 10/31/24 1440 Alert (0) 2 Regular None (Room air) Diminished [place] Warm;Dry Soft Active Left lower extremity -- -- -- -- +1 Labs Lab Results Component Value Date/Time WBC 17.2 (H) 10/31/2024 05 HGB 8.5 (L) 10/31/2024 05 HGB 9.1 10/05/2024 1419 HCT 26.6 (L) 10/31/2024 05 PLT 531 (H) 10/31/2024 05 NA 143 10/31/2024 0526 K 4.4 10/31/2024 0526 CL 110 (H) 10/31/2024 05 CO2 23 10/31/2024 05 BUN 27 (H) 10/31/2024 05 CREATININE 4.44 (H) 10/31/2024 05 CALCIUM 8.0 (L) 10/31/2024 05 PHOS 2.7 10/26/2024 0657 IV Drips and Rate/Dose Continuous Meds[3] Safety - Before each treatment: Dialysis Machine No.: [id number] RO Machine Number: [id number] Dialyzer Lot No.: [id number] Tubing Lot Number: [id number] All Connections Secure: Yes Venous Parameters Set: Yes Arterial Parameters Set: Yes NS Bag: Yes Saline Line Double Clamped: Yes Dialyzer: Nipro Prime Volume (mL): 200 mL RO Machine Number: [id number] RO Machine Log Sheet Completed: Yes Machine Alarm Self Test: Completed, Passed (Machine passed all tests at 1057) (10/31/24 1116) Air Foam Detector: Tested, Proper Function Extracorporeal Circuit Tested for Integrity: Yes Machine Conductivity: 14.1 Manual Conductivity: 14 Manual Ph: 7.4 Bleach Test (Neg): Yes Bath Temperature: 36 C (96.8 F) Conductivity Meter Serial #: [id number] Machine Functioning Alarm Free? Yes Dialysis Bath: K+ (Potassium): 3 Ca+ (Calcium): 2.5 Na+ (Sodium): 138 HCO3 (Bicarb): 32 Bicarbonate Concentrate Lot No.: [id number] Acid Concentrate Lot No.: [id number] Chlorine Testing - Before each treatment and every 4 hours: Time On: 1130 Time Off: 1430 Treatment Goal: 1L Weight Height: 162.6 cm (5' 4") (10/26/24 1438) Weight: 51 kg (112 lb 7 oz) [...] See orders Notification Date: 10/29/24 Notification Time: 807 Provider Role: Hospitalist Method of Communication: Secure chat Response: See orders Notification Time: 0808 Handoff complete and report given to Primary [...] Name: Apoorva Gonzalez Patient : 1950 Acct: [id number] Date of Admission: 10/22/2024 Room/Bed: [facility] A Code Status: DNR-CCA Allergies: [...] 10/28/24 0735 -- -- -- -- Clear;Diminished [place];Red Warm;Dry Soft Active -- -- -- -- -- 10/28/24 0906 Alert (0) 4 Regular None (Room air) Clear;Diminished [place];Red Warm;Dry Soft Active Left lower extremity;Right lower extremity -- +1 +1 Patient is agreeable to dialysis, consent verified prior to treatment 10/28/24 1225 Alert (0) 4 Regular None (Room air) Clear;Diminished [place];Red Warm;Dry Soft Active Left lower extremity Non-pitting Non-pitting Non-pitting -- Labs Lab Results Component Value Date/Time WBC 26.6 (H) 10/28/2024 0515 HGB 9.3 (L) 10/28/2024514 HGB 9.1 10/05/2024 1419 HCT 28.0 (L) 10/28/202415 PLT 460 (H) 10/28/2024 0515 NA 144 10/28/2024 0515 K 3.9 10/28/2024 0515 CL 109 (H) 10/28/2024 0515 CO2 24 10/28/2024 0515 BUN 24 (H) 10/28/2024 0515 CREATININE 3.83 (H) 10/28/2024 05 CALCIUM 8.0 (L) 10/28/2024 05 PHOS 2.7 10/26/2024 0657 IV Drips and Rate/Dose Continuous Meds[3] Safety - Before each treatment: Dialysis Machine No.: [id number] RO Machine Number: [id number] Dialyzer Lot No.: [id number] Tubing Lot Number: [id number] All Connections Secure: Yes Venous Parameters Set: Yes Arterial Parameters Set: Yes NS Bag: Yes Saline Line Double Clamped: Yes Dialyzer: Nipro Prime Volume (mL): 200 mL RO Machine Number: [id number] RO Machine Log Sheet Completed: Yes Machine Alarm Self Test: Completed, Passed (The machine passed all tests at 0851) (10/28/24 0906) Air Foam Detector: Tested, Proper Function Extracorporeal Circuit Tested for Integrity: Yes Machine Conductivity: 14 Manual Conductivity: 14.2 Manual Ph: 7.4 Bleach Test (Neg): Yes Bath Temperature: 36 C (96.8 F) Conductivity Meter Serial #: [id number] Machine Functioning Alarm Free? Yes Dialysis Bath: K+ (Potassium): 3 Ca+ (Calcium): 2.5 Na+ (Sodium): 138 HCO3 (Bicarb): 32 Bicarbonate Concentrate Lot No.: [id number] Acid Concentrate Lot No.: [id number] Chlorine Testing - Before each treatment and every 4 hours: Time On: 0915 Time Off: 1215 Treatment Goal: 1L Weight Height: 162.6 cm (5' 4") (10/26/24 1438) Weight: 52.3 kg (115 lb 4.8 oz) (10/28/24 05) BMI (Calculated): 19.78 (10/28/2416) 1st check: less than 0.1 ppm at: [...] Name: Apoorva Gonzalez Patient : 1950 Acct: [id number] Date of Admission: 10/22/2024 Room/Bed: 222[facility]/222 A Code Status: Full Code Allergies: Allergies[1] [...] 1035. Report Received from Primary RN at 4694. Primary RN (First Initial, Last Name, Title): [...] - Before each treatment: Dialysis Machine No.: [id number] RO Machine Number: [id number] Dialyzer Lot No.: [id number] Tubing Lot Number: [id number] All Connections Secure: Yes Venous Parameters Set: Yes Arterial Parameters Set: Yes NS Bag: Yes Saline Line Double Clamped: Yes Dialyzer: Nipro Prime Volume (mL): 200 mL RO Machine Number: [id number] RO Machine Log Sheet Completed: Yes Machine Alarm Self Test: Completed, Passed (10/26/241034) Air Foam Detector: Tested, Proper Function, pH Reading Extracorporeal Circuit Tested for Integrity: Yes Machine Conductivity: 14 Manual Conductivity: 14 Manual Ph: 7.2 Bleach Test (Neg): Yes Bath Temperature: 36 C (96.8 F) Conductivity Meter Serial #: [id number] Functioning Alarm Free? Yes Dialysis Bath: K+ (Potassium): 3 Ca+ (Calcium): 2.5 Na+ (Sodium): 138 HCO3 (Bicarb): 32 Bicarbonate Concentrate Lot No.: [id number] Acid Concentrate Lot No.: [id number] Chlorine Testing - Before each treatment and every 4 hours: Time On: 103 Time Off: 1034 Treatment Goal: 1 Weight Height: 162.6 cm (5' 4") (10/23/24 1034) Weight: 51.3 kg (113 lb 1.5 oz) (10/25/24 0050) BMI (Calculated): 19.4 (10/25/24 0050) 1st check: less than 0.1 ppm at: [...] mmHg 130 mmHg 100 600 Yes LVSD, PHLEBOTOMY COORDINATOR aware of BP 10/26/24 1300 350 mL/min 470 ml/hr -120 mmHg 130 mmHg 100 600 Yes LVSD, PHLEBOTOMY COORDINATOR aware of BP, waiting on reply from [...] Name: Apoorva Gonzalez Patient : 1950 Acct: [id number] Date of Admission: 10/22/2024 Room/Bed: 22202/222-02 A Code Status: Full Code Allergies: Allergies[1] [...] - Before each treatment: Dialysis Machine No.: [id number] Machine Number: [id number] Dialyzer Lot No.: [id number] Tubing Lot Number: [id number] All Connections Secure: Yes Venous Parameters Set: Yes Arterial Parameters Set: Yes NS Bag: Yes Saline Line Double Clamped: Yes Dialyzer: Nipro Prime Volume (mL): 200 mL Machine Number: [id number] RO Machine Log Sheet Completed: Yes Machine Alarm Self Test: Completed, Passed (Machine passed all tests at 0916) (10/24/24 0919) Air Foam Detector: Tested, Proper Function Extracorporeal Circuit Tested for Integrity: Yes Machine Conductivity: 14.0 Manual Conductivity: 14.2 Manual Ph: 7.4 Bleach Test (Neg): Yes Bath Temperature: 36 C (96.8 F) Conductivity Meter Serial #: [id number] Machine Functioning Alarm Free? Yes Dialysis Bath: K+ (Potassium): 3 Ca+ (Calcium): 2.5 Na+ (Sodium): 138 HCO3 (Bicarb): 32 Chlorine Testing - Before each treatment and every 4 hours: Time On: 09 Time Off: 1237 Treatment Goal: 1L Weight Height: 162.6 cm (5' 4") (10/23/24 1034) Weight: 48.3 kg (106 lb [...] -- -- -- 111 21 97 % 10/23/24 2016 -- -- -- 112 18 100 % [...] -- -- -- 116 25 97 % 10/23/241902 -- -- -- 116 (!) 26 94 % 10/23/24 190 159/67 -- -- 116 (!) 26 95 [...] back to the ICU. Patient arrived from [facility] for temporary central line placement. Dr. ruvalcaba in to speak with the patient/family regarding procedure, and consent was obtained. Patient's lab values and allergies were reviewed. Patient was placed supine on exam table, prepped and draped in sterile fashion. Telemetry monitors were placed. IR Procedures: Apoorva is here at [facility] from the ICU for a TLC (Temp [...] ready. Patient transported to ICU by [facility] and Kacey MARIE Report called to [place] PHLEBOTOMY COORDINATOR. Wound Care consulted for Pressure Injury Prevention. Pt's Arnol score= 13 on 10/23 Pt's pressure points assessed. Pt turned with max assist of 2 (this RN and Wound DRYING CAN WORKER) for posterior assessment. Pt's Heels, Back, Elbows, Occiput and ears all intact. Unstageable pressure injury noted to sacrum extending to left buttock. Wound DRYING CAN WORKER present at bedside for concurrent skin assessment. For sacrum/left buttock wound assessment and treatment plan, please see Wound/Ostomy DRYING CAN WORKER progress notes. Prevention Measures in place, including: [...] Kirti High RN documented in this encounter [facility] 11-11-2024 Note [facility] 11-11-2024 Hospital course Narrative Hospitalist Discharge Summary [...] C (97.6 F) Resp 16 Ht 5' 4" (1.626 m) Wt 117 lb 4.6 oz [...] 67* CALCIUM 7.4* 7.6* 7.3* Recent Labs 11/09/2422511/09/24 0750 11/10/24 0218 11/11/24 0539 WBC 16.0* -- 13.2* 12.6* RBC [...] Complexity: follow up within 7-14 calendar days (82080) [x] Severe Complexity: follow up within 7 calendar days (17783) Follow up Testing, Pending results or Referrals [...] Gerard Carrillo DO Division of Hospitalist Medicine [facility]3] 11/11/2024, 3:40 PM [1] Past Medical History: Diagnosis Date Chronic kidney disease (CKD) Hemodialysis patient (CMS/HCC) (HCC) Wednesday, , Wednesday History of blood transfusion 02/27/2022 Hypertension Seizure ([facility]) Developed seizure-like activity on 02/24 during hospital admission documented in this encounter [facility] 11-11-2024 History of Present illness Narrative Nephrology Progress Note Following for ESRD Pt seen in room NAD Dialyzed earlier, plans for discharge today Current Inpatient Medications: Reviewed on JUN. Vitals: BP 123/75 Pulse 87 Temp 36.5 C (97.7 F) Resp 16 Ht 1.626 m (5' 4") Wt 53.2 kg (117 lb 4.6 oz) [...] edema Data: Labs: Recent Labs 11/09/2422511/09/24 0750 11/10/248 11/11/24 0539 WBC 16.0* -- 13.2* 12.6* HGB [...] HD TTS , Please message me through [employer] with any questions or concerns. Jose G [...] between incision sites w/o interval change. Good mechanical service technician strength and sensation. Rewrapped w/ compression dressing [...] directly with any concerns WDW Dr. Jimenez dictaphone typist for Dr. Rojas Cosigned by Dee Jimenez MD at 11/11/2024 1:23 PM EDT Associated attestation - Dee Jimenez MD - 11/11/2024 1:23 PM EDT I have evaluated the patient and agree with the resident assessment and plan except for additional comments made in this note. Hospitalist Progress Note 11/10/2024 Subjective: Admit Date: 10/22/2024 PCP: Roxie Spain Room#: [id number]/[id number] A BRIEF HOSPITAL COURSE: 74-year-old female presenting [...] 376 414 -- 382 BMP: Recent Labs 11/08/246 11/09/246 11/10/24 0218 NA 135* 134* 134* K 4.0 4.5 4.0 CL 103 102 103 CO2 26 24 26 BUN 18 24* 16 CREATININE 2.91* 4.02* 2.81* GLUCOSE 67* 68* 67* CALCIUM 7.2* 7.4* 7.6* ANIONGAP 6 8 5 LIVER PROFILE:No results for input(s): "AST", "ALT", "BILITOT", "ALKPHOS", "PROT" in the last 72 hours. No lab exists for component: LABALBU PT/INR: No results for input(s): "PROTIME", "INR" in the last 72 hours. CARDIAC ENZYMES: No results for input(s): "TROPONINI" in the last 72 hours. Procalcitonin: No results found for: "PROCAL" COVID-19 PCR: No results for input(s): "COVID19" in the last 72 hours. Objective: Vitals: BP 127/78 Pulse 86 Temp 36.2 C (97.2 F) (Temporal) Resp 16 Ht 5' 4" (1.626 m) Wt 117 lb 4.6 oz [...] Emergency Contact: Deshawn Crystal Mobile Relation: Brother Elementary School Teacher'S Aide needed? No Secondary Emergency Contact: Edward Ruggiero Mobile Relation: Significant Other Preferred language: [employer] Teacher'S Aide needed? No Gerard Carrillo DO Division of Hospitalist Medicine [facility] [1] Past Medical History: Diagnosis Date Chronic kidney disease (CKD) Hemodialysis patient ([facility]) ([facility]) Wednesday, , Wednesday History of blood transfusion 02/27/2022 Hypertension Seizure ([facility]) Developed seizure-like activity on 02/24 during hospital [...] with ONS and diet once appropriate; noted MD/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 had been documenting Severe Malnutrition (until 10/31)) [...] Accumulation: No significant fluid accumulation (per flowsheet) Jackerman Strength: Not Performed Nutrition Assessment: Pt with previously noted PMH including ESRD on HD, Seizures, HTN, HLD, recent admission to OSH for sudden cardiac arrest 05/07 right thigh/hip abscess s/p I&D 08/16 presented initially to [facility] from [facility] on 10/22 due to AMS; in ED pt noted to be febrile 101.3 at [facility], tachycardic, tachypneic and with elevated WBC, received IV fluid bolus, antibiotics, admitted to [facility] for further work up; Critical care consulted the following day as pt remained febrile, tachycardic and tachypneic, WBC count also continuing to increase with worsening anemia; pt has had multiple admissions 08/14 to 08/24 at [facility] for cardiac arrest, 08/26 to 09/06 at for sepsis believed to be due to an infected right thigh wound and hematoma; [facility] from 09/13-10/12 w/ COVID-19 due to covid-19, electrolyte derangements, Enterobacter cloacae, Klebsiella pneumonia, Klebsiella oxytocin and VR Enterococcus which were treated for complete course, also, had C. difficile colitis which was treated, had tunneled HD catheter placed on discharge on 10/12; at [facility] PT/OT/LP, ID, Nephrology, and Wound Care consulted; pt was transferred out of ICU services to medical services on 10/24, noted to be receiving Meropenem and Vancomycin IV (stopped, transitioned to oral abx) for infected pressure ulcer on left buttocks; at [facility] Palliative Care was following, speaking with pt's brother, code status changed to DNR-CCA; pt noted to need fistula placement for HD, has temp HD cath in place, transferred to [facility] 10/31 for new fistula placement; [...] ROSEY compression and elevating extremity, considering DDAVP. MULTI NEEDLE MACHINE OPERATOR following (signed off previously, diet progressed to Regular from Soft and Bite Sized 7/28, recorded intakes this admission remain largely varied [...] assess Anthropometric Measures: Height: 162.6 cm (5' 4") Current Body Weight: 53.2 kg (117 lb 4.6 oz) (11/10) Weight Source: Bed Scale Admission Body Weight: 48.3 kg (106 lb 7.7 oz) Usual Body Weight: 48.9 kg (107 lb 12.8 oz) (Per EMR--> 110# 08/09/23; 105.4# 03/03/24; 112# 06/09/24; 107.8# 08/26/24; 114.4# 10/06/24 bed scale) % Weight Change (Calculated): -1.2 [place] Body Weight (lbs) (Calculated): 120 lbs [place] Body Weight (Kg) (Calculated): 55 kg % [place] Body Weight (Calculated): 97.7 % BMI (kg/m2) [...] Alexus Denney RD Contact: Secure chat or *[phone] [facility] - Infectious Diseases Attending Progress Note Subjective: [...] -- 53.2 kg (117 lb 4.6 oz) 11/09/241957 116/64 36.7 C (98.1 F) Temporal 98 [...] 11/10/2024217 LYMPHOPCT 15.1 11/10/2024217 LYMPHOPCT 8 (L) 11/01/2024 031 MONOPCT 8.1 11/10/2024217 MONOPCT 2 (L) 11/01/2024 0317 BASOPCT 1.0 11/10/2024217 BASOPCT 1 11/01/2024316 NEUTROABS 9.4 (H) 11/10/2024217 Micro: Reviewed 11/02 operative cultures negative Lines: [...] (Temporal) Resp 16 Ht 1.626 m (5' 4") Wt 53.2 kg (117 lb 4.6 oz) [...] lower extremity edema Data: Labs: Recent Labs 11/08/24 0326 11/09/24 0226 11/09/24 0750 11/10/24 0218 WBC 13.0* 16.0* -- 13.2* HGB 7.5* 6.8* 8.6* 7.0* HCT 23.1* 21.4* 25.9* 21.6* MCV 88.8 89.2 -- 88.9 PLT 376 414 -- 382 Recent Labs 11/08/24 0326 11/09/24 0226 11/10/24 0218 NA 135* 134* 134* K [...] any questions or concerns Karis Stone APRN 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 A-G DRYING CAN WORKER [facility] [place] [phone] Pt seen and examined independently by me. I reviewed with Karis Stone APRN-TAMIR the saavedra portions of the medical history and the findings on physical examination. I discussed the patient s saavedra portions of the diagnosis and concur with the treatment plan as documented in her note. Please message me through [employer] with any questions or concerns. Sean Castaneda [...] between incision sites w/o interval change. Good mechanical service technician strength and sensation. Rewrapped w/ compression dressing [...] surgery will continue to follow WDW Dr. Rojas Cosigned by Raffy Rojas MD at 11/10/2024 4:23 PM EDT Associated attestation - Raffy Rojas MD - 11/10/2024 4:23 PM EDT I [...] dressing. Please call with any concerns. Raffy Rojas MD Vascular Surgery Vascular Surgery Progress Note [...] edge, no obvious additional active bleed. Equal mechanical service technician strength, 2+ palpable radial pulses and sensation [...] surgery will continue to follow WDW Dr. Rojas Cosigned by Raffy Rojas MD at 11/09/2024 3:14 PM EDT Nephrology Progress Note Following for ESRD ABG hematoma Pt seen on HD today BP elevated increased swelling in LUE and bleeding vascular at bedside to assess Increase UF goal Current Inpatient Medications: Reviewed on JUN. Vitals: BP 157/96 Pulse 112 Temp 36.5 C (97.7 F) Resp 20 Ht 1.626 m (5' 4") Wt 52.8 kg (116 lb 4.8 oz) [...] lower extremity edema Data: Labs: Recent Labs 11/07/24 0108 11/08/24 0326 11/09/24 0226 11/09/24 0750 WBC 14.1* 13.0* 16.0* -- HGB 7.6* 7.5* 6.8* 8.6* HCT 23.6* 23.1* 21.4* 25.9* MCV 88.7 88.8 89.2 -- PLT 377 376 414 -- Recent Labs 11/07/24 0108 11/08/24 0326 11/09/24 0226 NA 139 135* 134* K 4.8 [...] any questions or concerns Karis Stone APRN 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 A-G DRYING CAN WORKER [facility] [place] [phone] Pt seen and examined independently by me. I reviewed with Karis Stone APRN-TAMIR the saavedra portions of the medical history and the findings on physical examination. I discussed the patient s saavedra portions of the diagnosis and concur with the treatment plan as documented in her note. Please message me through [employer] with any questions or concerns. Sean Castaneda MD Hospitalist Progress Note 11/09/2024 Subjective: Admit Date: 10/22/2024 PCP: Roxie Spain Room#: W3-250/W3-031 A BRIEF HOSPITAL COURSE: 74-year-old female presenting [...] Intake/Output Summary (Last 24 hours) at 11/09/2024 2641 Last data filed at 11/09/2024 0634 Gross per 24 hour Intake 578 ml Output -- Net 578 ml Past Medical History: Medical History[1] LABS: CBC: Recent Labs 11/07/2410711/08/246 11/09/24 0226 11/09/24 0750 WBC 14.1* 13.0* 16.0* -- RBC [...] 6 8 LIVER PROFILE:No results for input(s): "AST", "ALT", "BILITOT", "ALKPHOS", "PROT" in the last 72 hours. No lab exists for component: LABALBU PT/INR: No results for input(s): "PROTIME", "INR" in the last 72 hours. CARDIAC ENZYMES: No results for input(s): "TROPONINI" in the last 72 hours. Procalcitonin: No results found for: "PROCAL" COVID-19 PCR: No results for input(s): "COVID19" in the last 72 hours. Objective: Vitals: BP (!) 178/114 Pulse 105 Temp 37.2 C (99 F) (Temporal) Resp 18 Ht 5' 4" (1.626 m) Wt 116 lb 4.8 oz [...] Emergency Contact: Deshawn Crystal Mobile Relation: Brother Elementary School Teacher'S Aide needed? No Secondary Emergency Contact: Edward Ruggiero Mobile Relation: Significant Other Preferred language: [employer] Teacher'S Aide needed? No Gerard Carrillo DO Division of Hospitalist Medicine [facility] [1] Past Medical History: Diagnosis Date Chronic [...] Admit Date: 10/22/2024 PCP: Roxie Spain Room#: [id number]/[id number] A BRIEF HOSPITAL COURSE: 74-year-old female presenting [...] PLT 388 377 376 BMP: Recent Labs 11/06/2421511/07/248 11/08/24 032 NA 138 139 135* K 4.7 4.8 4.0 CL 105 105 103 CO2 24 23 26 BUN 24* 37* 18 CREATININE 3.50* 4.35* 2.91* GLUCOSE 123* 82 67* CALCIUM 7.3* 7.2* 7.2* ANIONGAP 9 11 6 LIVER PROFILE:No results for input(s): "AST", "ALT", "BILITOT", "ALKPHOS", "PROT" in the last 72 hours. No lab exists for component: LABALBU PT/INR: No results for input(s): "PROTIME", "INR" in the last 72 hours. CARDIAC ENZYMES: No results for input(s): "TROPONINI" in the last 72 hours. Procalcitonin: No results found for: "PROCAL" COVID-19 PCR: No results for input(s): "COVID19" in the last 72 hours. Objective: Vitals: BP 145/89 Pulse 104 Temp 36.8 C (98.3 F) (Temporal) Resp 20 Ht 5' 4" (1.626 m) Wt 116 lb 4.8 oz [...] Emergency Contact: Deshawn Crystal Mobile Relation: Brother Elementary School Teacher'S Aide needed? No Secondary Emergency Contact: Edward Ruggiero Mobile Relation: Significant Other Preferred language: [employer] Teacher'S Aide needed? No Gerard Carrillo DO Division of Hospitalist Medicine [facility] [1] Past Medical History: Diagnosis Date Chronic kidney disease (CKD) Hemodialysis patient ([facility]) ([facility]) Wednesday, , Wednesday History of blood transfusion 02/27/2022 Hypertension Seizure ([facility]) Developed seizure-like activity on 02/24 during hospital [...] (Temporal) Resp 20 Ht 1.626 m (5' 4") Wt 52.8 kg (116 lb 4.8 oz) SpO2 97% BMI 19.96 kg/m BLOOD PRESSURE RANGE: Systolic (24hrs), Av , Min:145 , Max:174 ; Diastolic (24hrs), Av, Min:86, Max:99 24HR INTAKE/OUTPUT: Intake/Output Summary (Last 24 hours) at 11/08/2024 1208 Last data filed at 11/08/2024 0830 Gross per 24 hour Intake 680 ml Output 1400 ml Net -720 ml Data: Labs: Recent Labs 11/06/2421511/07/2410711/08/24 0326 WBC 15.6* 14.1* 13.0* HGB 9.3* 7.6* 7.5* HCT 27.6* 23.6* 23.1* MCV 85.4 88.7 88.8 PLT 388 377 376 Recent Labs 11/06/2421511/07/248 11/08/24 0326 NA 138 139 135* K [...] any questions or concerns Karis Stone APRN 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 A-G DRYING CAN WORKER [facility] [place] [phone] Pt seen and examined independently by me. I reviewed with Karis Stone APRN-TAMIR the saavedra portions of the medical history and the findings on physical examination. I discussed the patient s saavedra portions of the diagnosis and concur with the treatment plan as documented in her note. Please message me through [employer] with any questions or concerns. Sean Castaneda MD [facility] - Infectious Diseases Attending Progress Note Subjective: ID following- last seen at [facility] on 11/02- transferred to [facility] for Vascualr evaluation of suspected [...] Lab Results Component Value Date/Time NA 139 11/07/2024107 K 4.8 11/07/2024107 CL 105 11/07/2024107 CO2 23 11/07/2024107 BUN 37 (H) 11/07/2024107 CREATININE 4.35 (H) 11/07/2024107 GLUCOSE 82 11/07/2024107 CALCIUM 7.2 (L) 11/07/2024107 PROT 5.6 (L) 10/24/2024 0649 BILITOT 0.5 [...] 11/07/2024107 LYMPHOPCT 22.2 11/07/2024107 LYMPHOPCT 8 (L) 11/01/2024 0317 MONOPCT 6.8 11/07/2024107 MONOPCT 2 (L) 11/01/20247 BASOPCT 1.0 11/07/2024107 BASOPCT 1 11/01/2024316 NEUTROABS [...] F) Resp 17 Ht 1.626 m (5' 4") Wt 54.7 kg (120 lb 11.2 oz) [...] any questions or concerns Karis Stone APRN 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 A-G DRYING CAN WORKER [facility] [place] [phone] Pt seen and examined independently by me. I reviewed with Karis Stone APRN-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 the saavedra portions of the medical history [...] 11/07/2024 Subjective: Admit Date: 10/22/2024 PCP: Roxie pSain Room#: W6-637/W6-637 A BRIEF HOSPITAL COURSE: 74-year-old [...] Labs 11/05/24 0434 11/05/24 0617 11/05/24 1453 11/06/246 11/07/24 0108 WBC 14.6* -- -- 15.6* 14.1* RBC 2.32* -- -- 3.23* 2.66* HGB 6.6* < > 9.4* 9.3* 7.6* HCT 20.3* < > 28.2* 27.6* 23.6* MCV 87.5 -- -- 85.4 88.7 RDW 17.3* -- -- 17.4* 17.5* PLT 391 -- -- 388 377 < > = values in this interval not displayed. BMP: Recent Labs 11/05/24 0434 11/06/24 0216 11/07/24 0108 NA 138 138 139 K 3.8 4.7 4.8 CL 104 105 105 CO2 25 24 23 BUN 13 24* 37* CREATININE 2.53* 3.50* 4.35* GLUCOSE 66* 123* 82 CALCIUM 7.3* 7.3* 7.2* ANIONGAP 9 9 11 LIVER PROFILE:No results for input(s): "AST", "ALT", "BILITOT", "ALKPHOS", "PROT" in the last 72 hours. No lab exists for component: LABALBU PT/INR: No results for input(s): "PROTIME", "INR" in the last 72 hours. CARDIAC ENZYMES: No results for input(s): "TROPONINI" in the last 72 hours. Procalcitonin: No results found for: "PROCAL" COVID-19 PCR: No results for input(s): "COVID19" in the last 72 hours. Objective: Vitals: BP 157/96 (BP Location: Right arm, Patient Position: Sitting) Pulse 87 Temp 36.7 C (98.1 F) (Temporal) Resp 19 Ht 5' 4" (1.626 m) Wt 120 lb 11.2 oz [...] Emergency Contact: Deshawn Crystal Mobile Relation: Brother Elementary School Teacher'S Aide needed? No Secondary Emergency Contact: Edward Ruggiero Mobile Relation: Significant Other Preferred language: [employer] Teacher'S Aide needed? No Gerard Carrillo DO Division of Hospitalist Medicine [facility] [1] Past Medical History: Diagnosis Date Chronic kidney disease (CKD) Hemodialysis patient (CMS/HCC) ([facility]) Wednesday, , Wednesday History of blood transfusion 02/27/2022 Hypertension Seizure ([facility]) Developed seizure-like activity on 02/24 during hospital [...] ONS and liberalized diet; noted MD or 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 had been documenting Severe Malnutrition since 10/23) [...] ? beyond her baseline at least to islam, clavicle however could not quantify today) Fluid Accumulation: Mild (+2 LLE, nonpitting generalized/RLE edema) Jackerman Strength: Not Performed Nutrition Assessment: Pt with previously noted PMH including ESRD on HD, Seizures, HTN, HLD, recent admission to OSH for sudden cardiac arrest 2/2 right thigh/hip abscess s/p I&D 08/16 presented initially to [facility] on 10[facility]22 due to AMS; in ED pt noted to be febrile 101.3 at [facility], tachycardic, tachypneic and with elevated WBC, received IV fluid bolus, antibiotics, admitted to [facility] for further work up; Critical care consulted the following day as pt remained febrile, tachycardic and tachypneic, WBC count also continuing to increase with worsening anemia; pt has had multiple admissions 08/14 to 08/24 at [facility] for cardiac arrest, 08/26 to 09/06 at for sepsis believed to be due to an infected right thigh wound and hematoma; [facility] from 09/13-10/12 w/ COVID-19 due to covid-19, electrolyte derangements, Enterobacter cloacae, Klebsiella pneumonia, Klebsiella oxytocin and VR Enterococcus which were treated for complete course, also, had C. difficile colitis which was treated, had tunneled HD catheter placed on discharge on 10/12; at [facility] PT/OT/LP, ID, Nephrology, and Wound Care consulted; pt was transferred out of ICU services to medical services on 10/24, noted to be receiving Meropenem and Vancomycin IV (stopped, transitioned to oral abx) for infected pressure ulcer on left buttocks; at [facility] Palliative Care was following, speaking with pt's brother, code status changed to DNR-CCA; pt noted to need fistula placement for HD, has temp HD cath in place, transferred to [facility] 10/31 for new fistula placement; here Vascular was consulted for same, recommended OR for assessment of AV fistula clot/infection 11/02; s/p further blood transfusion 11/02, 11/05 (hemoglobin today 9.3 mg/dL), 11/04-11/05 pt was having bleeding from AV fistula requiring transfusions, yesterday pt underwent exploration of LUE with evacuation of hematoma; last HD 11/04. MULTI NEEDLE MACHINE OPERATOR following (signed off last week), diet progressed [...] house tray for lunch however breakfast was kazakh toast and coffee, dinner is not a [...] room) Anthropometric Measures: Height: 162.6 cm (5' 4") Current Body Weight: 51 kg (112 lb [...] bed scale) % Weight Change (Calculated): -1.2 [place] Body Weight (lbs) (Calculated): 120 lbs [place] Body Weight (Kg) (Calculated): 55 kg % [place] Body Weight (Calculated): 97.7 % BMI (kg/m2) [...] Alexus Denney RD Contact: Secure chat or *[phone] Images from the original note were not included. PHYSICAL THERAPY [facility] Treatment Note Name/MRN: Apoorva Gonzalez ([id number]) Date of : 1950 Age: 74 y.o. Room/Bed: [facility] A Discharge Recommendation: [facility] [...] (Temporal) Resp 12 Ht 1.626 m (5' 4") Wt 47.2 kg (104 lb) SpO2 96% [...] any questions or concerns Karis Stone APRN 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 A-G DRYING CAN WORKER [facility] [place] [phone] Pt seen and examined independently by me. I reviewed with Karis Stone APRN-TAMIR the saavedra portions of the medical history and the findings on physical examination. I discussed the patient s saavedra portions of the diagnosis and concur with the treatment plan as documented in her note. Please message me through [employer] with any questions or concerns. Sean Castaneda [...] call with questions or concerns WDW Dr. Rojas Cosigned by Raffy Rojas MD at 11/06/2024 4:42 PM EDT Associated attestation - Raffy Rojas MD - 11/06/2024 4:42 PM EDT Left radial pulse palpable. No significant bleeding. Hgb remains stable today. Vascular surgery will sign off. Please call with any questions or concerns. Outpatient follow up will be arranged. Hospitalist Progress Note 11/06/2024 Subjective: Admit Date: 10/22/2024 PCP: Roxie Spain Room#: [id number] A Interval History: No acute events overnight. [...] 9 9 LIVER PROFILE:No results for input(s): "AST", "ALT", "BILITOT", "ALKPHOS", "PROT" in the last 72 hours. No lab exists for component: LABALBU PT/INR: No results for input(s): "PROTIME", "INR" in the last 72 hours. CARDIAC ENZYMES: No results for input(s): "TROPONINI" in the last 72 hours. Procalcitonin: No results found for: "PROCAL" COVID-19 PCR: No results for input(s): "COVID19" in the last 72 hours. Objective: Vitals: BP 122/71 (BP Location: Right arm) Pulse 112 Temp 36.8 C (98.3 F) (Temporal) Resp 20 Ht 5' 4" (1.626 m) Wt 104 lb (47.2 kg) [...] with fever and tachycardia and lethargy to [facility] on 10/22/24. HC POA is partner = Edward and brother Deshawn Recently admitted from 09/13 to 10/12 at [facility] for new onset atrial fibrillation complicated [...] recent infected hematoma which was I&D at [facility] and treated with antibiotics from 08/14-08/24 in which she went under cardiac arrest which was thought to be due to the right thigh and anterior hip abscess - which was drained and she left with wound vac. Returned on 08/26 for expanding hematoma to the right thigh requiring 2 units of pRBC, and transferred to [facility] for IR emobolization of thigh hematoma, but a decision was made not to perform any intervention and she was discharged to SNF on 09/06. 10/22-10/31 [facility] ICU. Patient did not require vasopressors. October 28 transferred to [facility]. October 31 decided to transfer patient to [facility] for vascular assessment of fistula [...] care following, CODE STATUS DO NOT RESUSCITATE [facility] November 04 through November 05 patient was [...] History of cardiopulmonary arrest August 2024 at [facility] Extended Emergency Contact Information Primary Emergency Contact: Deshawn Crystal Mobile Relation: Brother Elementary School Teacher'S Aide needed? No Secondary Emergency Contact: Edward Ruggiero Mobile Relation: Significant Other Preferred language: [employer] Teacher'S Aide needed? No Candy Denis DO Division of Hospitalist Medicine [facility] [1] Past Medical History: Diagnosis Date Chronic [...] sodium chloride 0.9%, sodium chloride 0.9% [4] [facility] PROGRESS NOTE Subjective Interval History: Apoorva Gonzalez is being followed for ESRD. On November 05, 2024, Apoorva Gonzalez (: 1950) underwent a surgical procedure at [facility] for evacuation of a left upper extremity hematoma and control of bleeding related to a prior AV graft site. The procedure was performed by Dr. Raffy Rojas, with Dr. Maria A Khan listed on [...] AV graft site on 11/05/[address] Rojas and Dr. Khan. No intraoperative complications; blood [...] Francisco Javier Somers III, MD, Given at 11/04/24821 heparin injection 1,200-2,000 Units, 1,200-2,000 Units, IntraCATHeter, [...] Somers III, MD, 10 mg at 10/31/24 204 labetalol (Normodyne,Trandate) injection 10 mg, 10 mg, IntraVENous, q4h PRN, Francisco Javier Somers III, MD, 10 mg at 11/04/24 113 levETIRAcetam (Keppra) tablet 500 mg, 500 mg, Oral, Daily, Francisco Javier Somers III, MD, 500 mg at 11/04/24820 melatonin tablet 5 mg, 5 mg, Oral, Nightly PRN, Francisco Javier Somers III, MD, 5 mg at 11/04/242055 morphine injection 1 mg, 1 mg, IntraVENous, [...] IntraVENous, PRN, Candy Denis DO sodium chloride 0.9 % infusion, 250 mL/hr, IntraVENous, PRN, Romain Meadows NP sodium chloride 0.9 % infusion, 250 mL/hr, IntraVENous, PRN, Raffy Rojas MD sodium chloride 0.9% (NS) flush 5-40 [...] via telephone. Discussed with patient's brother and POJoann Hess regarding the overnight events and recommendation for OR for washout, control of bleeding, and closure of wound dehiscence. All questions have been answered to his satisfaction. He has provided consent for us to proceed. Raffy Rojas MD Vascular Surgery Vascular Surgery Progress Note [...] with large clot evacuated (see above), previous Ti removed 11/04/2024. Plan to monitor will need [...] follow Case to be discussed with Ottoniel Rojas MD Cosigned by Raffy Rojas MD at 11/05/2024 10:46 AM EDT Associated attestation - Raffy Rojas MD - 11/05/2024 10:46 AM EDT I [...] Admit Date: 10/22/2024 PCP: Roxie Spain Room#: [id number] A Interval History: NETWORK ADMIN PER CYNTHIA LOMBARDI'S NOTE "large amount of new bloody drainage from left upper arm. Upon assessment, incision is open and actively bleeding. Arm is firm and incision below in forearm is beginning to ooze. Pressure dressing applied. Patient states that when she was being repositioned in bed she felt a sudden gush of fluid from upper arm. Denies numbness/tingling. Strong radial pulse and good cap refilL" D/w with cynthia mason Adult diet Regular [...] 11 9 LIVER PROFILE:No results for input(s): "AST", "ALT", "BILITOT", "ALKPHOS", "PROT" in the last 72 hours. No lab exists for component: LABALBU PT/INR: No results for input(s): "PROTIME", "INR" in the last 72 hours. CARDIAC ENZYMES: No results for input(s): "TROPONINI" in the last 72 hours. Procalcitonin: No results found for: "PROCAL" COVID-19 PCR: No results for input(s): "COVID19" in the last 72 hours. Objective: Vitals: BP 157/90 Pulse 97 Temp 37.3 C (99.2 F) (Temporal) Resp 16 Ht 5' 4" (1.626 m) Wt 104 lb 4.4 oz [...] with fever and tachycardia and lethargy to [facility] on 10/22/24. HC POA is partner = Edward and brother Deshawn Recently admitted from 09/13 to 10/12 at [facility] for new onset atrial fibrillation complicated [...] recent infected hematoma which was I&D at [facility] and treated with antibiotics from 08/14-08/24 in which she went under cardiac arrest which was thought to be due to the right thigh and anterior hip abscess - which was drained and she left with wound vac. Returned on 08/26 for expanding hematoma to the right thigh requiring 2 units of pRBC, and transferred to [facility] for IR emobolization of thigh hematoma, but a decision was made not to perform any intervention and she was discharged to SNF on 09/06. 10/22-10/31 [facility] ICU. Patient did not require vasopressors. October 28 transferred to [facility]. October 31 decided to transfer patient to [facility] for vascular assessment of fistula [...] History of cardiopulmonary arrest August 2024 at [facility] Extended Emergency Contact Information Primary Emergency Contact: Deshawn Crystal Mobile Relation: Brother Elementary School Teacher'S Aide needed? No Secondary Emergency Contact: Edward Ruggiero Mobile Relation: Significant Other Preferred language: [employer] Teacher'S Aide needed? No Candy Denis DO Division of Hospitalist Medicine Acute care [facility] [1] Past Medical History: Diagnosis [...] Javier Somers III, MD, 5,000 Units at 11/04/2421 hydrALAZINE (Apresoline) injection 10 mg, 10 mg, IntraVENous, q4h PRN, Francisco Javier Somers III, MD, 10 mg at 10/31/242044 labetalol (Normodyne,Trandate) injection 10 mg, 10 mg, IntraVENous, q4h PRN, Francisco Javier Somers III, MD, 10 mg at 11/04/24 113 levETIRAcetam (Keppra) tablet 500 mg, 500 mg, [...] Somers III, MD, 5 mg at 11/04/24820 polyethylene glycol (PEG) 3350 (Miralax) packet 17 g, 17 g, Oral, Daily PRN, Francisco Javier Somres III, MD, 17 g at 11/04/24820 [Held by provider] sevelamer carbonate (Renvela) tablet 800 mg, 800 mg, Oral, TID BALBINA, Kaylin Luttmann, DO sodium chloride 0.9 % infusion, 5-250 [...] IntraVENous, PRN, Candy Denis, DO sodium chloride 0.9% (NS) flush 5-40 mL, 5-40 mL, IntraVENous, 2 times per day, Francisco Javier Somers III, MD, 10 mL at 11/04/24 0823 sodium chloride 0.9% (NS) flush 5-40 [...] III, MD, 1 tablet at 11/04/24 0823 Left ti drain removed. 2 corie placed. Patient tolerated well. Vascular Surgery Progress Note SUBJECTIVE: NAEON. Patient alert and oriented to self on exam. Denies of any pain. Resting in bed. Per nursing staff patient did have some drainage from left upper extremity, covered with Kerlix ROS: As above unless otherwise noted here OBJECTIVE: Vitals: 11/03/24 194 BP: 142/86 Pulse: 103 Resp: 20 Temp: [...] Grossly Intact VASCULAR: left upper extremity with Ti drain in place, old blood draining, old [...] no growth to date, on Bactrim Hemodialysis , , Rest of care per primary team Vascular surgery will continue to follow Case to be discussed with Ottoniel Rojas MD Cosigned by Raffy Rojas MD at 11/04/2024 11:16 AM EDT Associated attestation - Raffy Rojas MD - 11/04/2024 11:16 AM EDT I saw and evaluated the patient. I agree with the findings and plan of care as documented in the resident s note unless otherwise noted below. Ti drain removed from the incision and remained of incision closed with 2 corie. Thin dark fluid evacuated (thin serousanguinous but appears as old blood). The patient tolerated this well. Radial pulse remains palpable. Arm dressed. Will reassess tomorrow. Cultures from surgery remain negative to date. Hospitalist Progress Note 11/04/2024 Subjective: Admit Date: 10/22/2024 PCP: Roxie Spain Room#: [id number]/[id number] A Interval History: On room air. Hypertensive. No fever. Finishing up dialysis door technician at bedside In her bed currently D/w [...] 12 11 LIVER PROFILE:No results for input(s): "AST", "ALT", "BILITOT", "ALKPHOS", "PROT" in the last 72 hours. No lab exists for component: LABALBU PT/INR: Recent Labs 11/01/24 1358 PROTIME 11.8 INR 1.1 CARDIAC ENZYMES: No results for input(s): "TROPONINI" in the last 72 hours. Procalcitonin: No results found for: "PROCAL" COVID-19 PCR: No results for input(s): "COVID19" in the last 72 hours. Objective: Vitals: BP 142/86 (BP Location: Right arm, Patient Position: Lying) Pulse 103 Temp 37.4 C (99.4 F) (Temporal) Resp 20 Ht 5' 4" (1.626 m) Wt 121 lb 11.2 oz [...] with fever and tachycardia and lethargy to [facility] on 10/22/24. HC POA is partner = Edward and brother Deshawn Recently admitted from 09/13 to 10/12 at [facility] for new onset atrial fibrillation complicated [...] recent infected hematoma which was I&D at [facility] and treated with antibiotics from 08/14-08/24 in which she went under cardiac arrest which was thought to be due to the right thigh and anterior hip abscess - which was drained and she left with wound vac. Returned on 08/26 for expanding hematoma to the right thigh requiring 2 units of pRBC, and transferred to [facility] for IR emobolization of thigh hematoma, but a decision was made not to perform any intervention and she was discharged to SNF on 09/06. 10/22-10/31 [facility] ICU. Patient did not require vasopressors. October 28 transferred to [facility]. October 31 decided to transfer patient to [facility] for vascular assessment of fistula [...] History of cardiopulmonary arrest August 2024 at [facility] Extended Emergency Contact Information Primary Emergency Contact: BonillaDeshawn Mobile Relation: Brother Elementary School Teacher'S Aide needed? No Secondary Emergency Contact: BahmanEdward Mobile Relation: Significant Other Preferred language: [employer] Teacher'S Aide needed? No Candy Denis DO Division of Hospitalist Medicine [facility] [1] Past Medical History: Diagnosis Date Chronic [...] organism, unspecified whether acute organ dysfunction present ([facility]) Active Problems: Seizures (HCC) ESRD (end stage [...] Somers III, MD, 5 mg at 11/03/24 0821 chlorhexidine (Hibiclens) 4 % solution, , [...] Somers III, MD, 2,000 Units at 11/02/24 183 heparin injection 1,200-2,000 Units, 1,200-2,000 Units, IntraCATHeter, PRN, Francisco Javier Somers III, MD, 2,100 Units at 11/02/24 183 heparin injection 5,000 Units, 5,000 Units, SubCUTAneous, 2 times per day, Francisco Javier Somers III, MD, 5,000 Units at 11/03/24820 hydrALAZINE (Apresoline) injection 10 mg, 10 mg, [...] mg, 800 mg, Oral, TID BALBINA, Kaylin Thomas, sodium chloride 0.9 % infusion, [...] follow Case to be discussed with Ottoniel Rojas MD Cosigned by Raffy Rojas MD at 11/03/2024 12:27 PM EDT Associated attestation - Raffy Rojas MD - 11/03/2024 12:27 PM EDT I [...] Admit Date: 10/22/2024 PCP: Roxie Spain Room#: [id number]/[id number] A Interval History: On room air. Hypertensive. No fever. Unable to obtain review of system. Sitting in the recliner Adult diet Regular 24HR INTAKE/OUTPUT: Intake/Output Summary (Last 24 hours) at 11/03/2024 0621 Last data filed at 11/02/2024 1846 Gross per 24 hour Intake 1596.6 ml Output 350 ml Net 1246.6 ml Past Medical History: Medical History[1] LABS: CBC: Recent Labs 11/01/2431611/02/24 0241 11/02/24 1155 11/02/24 1655 WBC 20.4* 21.9* -- [...] 12 11 LIVER PROFILE:No results for input(s): "AST", "ALT", "BILITOT", "ALKPHOS", "PROT" in the last 72 hours. No lab exists for component: LABALBU PT/INR: Recent Labs 11/01/24 1358 PROTIME 11.8 INR 1.1 CARDIAC ENZYMES: No results for input(s): "TROPONINI" in the last 72 hours. Procalcitonin: No results found for: "PROCAL" COVID-19 PCR: No results for input(s): "COVID19" in the last 72 hours. Objective: Vitals: BP 128/76 (BP Location: Right arm, Patient Position: Lying) Pulse 115 Temp 37.4 C (99.4 F) (Temporal) Resp 18 Ht 5' 4" (1.626 m) Wt 121 lb 1.6 oz [...] with fever and tachycardia and lethargy to [facility] on 10/22/24. HC POA is partner = Edward and brother Deshawn Recently admitted from 09/13 to 10/12 at [facility] for new onset atrial fibrillation complicated [...] recent infected hematoma which was I&D at [facility] and treated with antibiotics from 08/14-08/24 in which she went under cardiac arrest which was thought to be due to the right thigh and anterior hip abscess - which was drained and she left with wound vac. Returned on 08/26 for expanding hematoma to the right thigh requiring 2 units of pRBC, and transferred to [facility] for IR emobolization of thigh hematoma, but a decision was made not to perform any intervention and she was discharged to SNF on 09/06. 10/22-10/31 [facility] ICU. Patient did not require vasopressors. October 28 transferred to [facility]. October 31 decided to transfer patient to [facility] for vascular assessment of fistula [...] History of cardiopulmonary arrest August 2024 at [facility] Extended Emergency Contact Information Primary Emergency Contact: Deshawn Crystal Mobile Relation: Brother Elementary School Teacher'S Aide needed? No Secondary Emergency Contact: Edward Ruggiero Mobile Relation: Significant Other Preferred language: [employer] Teacher'S Aide needed? No Candy Denis DO Division of Hospitalist Medicine [facility] care [facility] [1] Past Medical History: Diagnosis [...] Javier Somers III, MD, 500 mg at 11/02/241457 melatonin tablet 5 mg, 5 mg, Oral, [...] mg, 800 mg, Oral, TID BALBINA, Kaylin Thomas, sodium chloride 0.9 % infusion, [...] Javier Somers III, MD, 10 mL at 11/02/241456 sodium chloride 0.9% (NS) flush 5-40 mL, 5-40 mL, IntraVENous, PRN, Francisco Javier Somers III, MD, 10 mL at 10/27/242031 sulfamethoxazole-trimethoprim (Bactrim DS) 800-160 MG per tablet 1 tablet, 1 tablet, Oral, Daily, Francisco Javier Somers III, MD, 1 tablet at 11/02/24 145 Vascular Surgery Progress Note SUBJECTIVE: The patient [...] 12.3 (H) 09/17/2024 No results found for: "VLDL" PHYSICAL EXAM: Vitals: 11/01/242023 BP: 159/92 Pulse: [...] graft, near the brachial artery anastomosis. Raffy Rojas MD Vascular Surgery [1] Past Medical History: Diagnosis Date Chronic kidney disease (CKD) Hemodialysis patient (CMS/HCC) (HCC) Wednesday, , Wednesday History of blood transfusion 02/27/2022 Hypertension Seizure (HCC) Developed seizure-like activity on 02/24 during hospital admission [2] Past Surgical History: Procedure Laterality Date AV FISTULA PLACEMENT Left 08/07/2022 COLONOSCOPY N/A 01/25/2024 Performed by Chrissy Gilman MD at [facility] ENDOSCOPY IR CVC TUNNELED DIALYSIS CATHETER PLACEMENT 02/27/2022 IR CVC TUNNELED CATHETER PLACEMENT 02/27/2022 Candis Andrade MD [facility] SPECIAL PROCEDURES IR EMBOLIZATION 01/24/2024 IR EMBOLIZATION 01/24/2024 Jovan Glynn MD [facility] SPECIAL PROCEDURES [3] lactated Ringer's, 125 mL/hr [...] Admit Date: 10/22/2024 PCP: Roxie Spain Room#: [id number]/[id number] A Interval History: On room air. Hypertensive. No fever. Unable to obtain review of system. NPO diet with enteral medications 24HR INTAKE/OUTPUT: Intake/Output Summary (Last 24 hours) at 11/02/2024 0607 Last data filed at 11/01/2024 2206 Gross per 24 hour Intake 484.1 ml Output -- Net 484.1 ml Past Medical History: Medical History[1] LABS: CBC: Recent Labs 10/31/2452511/01/2431611/02/24 0241 WBC 17.2* 20.4* 21.9* RBC 2.91* 2.75* 2.48* HGB 8.5* 8.0* 7.4* HCT 26.6* 25.2* 22.9* MCV 91.4 91.6 92.3 RDW 16.7* 16.6* 16.3* PLT 531* 557* 530* BMP: Recent Labs 10/31/2452511/01/2431611/02/24 0241 NA 143 139 138 K 4.4 4.6 4.8 CL 110* 104 105 CO2 23 22* 21* BUN 27* 14 20 CREATININE 4.44* 2.98* 4.11* GLUCOSE 73* 67* 64* CALCIUM 8.0* 7.7* 7.7* ANIONGAP 10 13 12 LIVER PROFILE:No results for input(s): "AST", "ALT", "BILITOT", "ALKPHOS", "PROT" in the last 72 hours. No lab exists for component: LABALBU PT/INR: Recent Labs 11/01/24 1358 PROTIME 11.8 INR 1.1 CARDIAC ENZYMES: No results for input(s): "TROPONINI" in the last 72 hours. Procalcitonin: No results found for: "PROCAL" COVID-19 PCR: No results for input(s): "COVID19" in the last 72 hours. Objective: Vitals: BP 159/92 (BP Location: Right arm, Patient Position: Lying) Pulse 114 Temp 37.4 C (99.3 F) (Temporal) Resp 16 Ht 5' 4" (1.626 m) Wt 112 lb 7 oz [...] with fever and tachycardia and lethargy to [facility] on 10/22/24. HC POA is partner = Edward and brother Deshawn Recently admitted from 09/13 to 10/12 at [facility] for new onset atrial fibrillation complicated [...] recent infected hematoma which was I&D at [facility] and treated with antibiotics from 08/14-08/24 in which she went under cardiac arrest which was thought to be due to the right thigh and anterior hip abscess - which was drained and she left with wound vac. Returned on 08/26 for expanding hematoma to the right thigh requiring 2 units of pRBC, and transferred to [facility] for IR emobolization of thigh hematoma, but a decision was made not to perform any intervention and she was discharged to SNF on 09/06. 10/22-10/31 [facility] ICU. Patient did not require vasopressors. October 28 transferred to [facility]. October 31 decided to transfer patient to [facility] for vascular assessment of fistula [...] cardiopulmonary arrest August 2024 at [facility] Extended Emergency Contact Information Primary Emergency Contact: Deshawn Crystal Mobile Relation: Brother Elementary School Teacher'S Aide needed? No Secondary Emergency Contact: Edward Ruggiero Mobile Relation: Significant Other Preferred language: [employer] Teacher'S Aide needed? No Candy Denis DO Division of Hospitalist Medicine [facility] [1] Past Medical History: Diagnosis Date Chronic [...] mg, Oral, q6h PRN, Kaylin Thomas DO amLODIPine (Norvasc) tablet 5 mg, 5 mg, Oral, Daily, Ana Boyce APRN - 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, 5 mg at 11/01/24 0810 chlorhexidine (Hibiclens) 4 % solution, , Topical, Daily, Kaylin Thomas DO, Given at 11/01/24 1340 collagenase 250 UNIT/GM ointment, , Topical, PRN, Kaylin Thomas DO collagenase 250 UNIT/GM ointment, , Topical, Daily, Kaylin Thomas DO, Given at 11/01/24 0945 dextrose 5 [...] PRN, Kaylin Thomas DO, 2,000 Units at 10/31/24 1440 heparin injection 1,200-2,000 Units, 1,200-2,000 Units, IntraCATHeter, PRN, Kaylin Thomas DO, 2,100 Units at 10/31/24 1440 heparin injection 5,000 Units, 5,000 Units, SubCUTAneous, 2 times per day, Kaylin Thomas DO, 5,000 Units at 11/01/24 0810 hydrALAZINE (Apresoline) injection 10 mg, 10 mg, IntraVENous, q4h PRN, AnaPARK Klein CNP, 10 mg at 10/31/242044 labetalol (Normodyne,Trandate) injection [...] day, Kaylin Thomas DO, 10 mL at 11/01/24 0810 sodium chloride 0.9% (NS) flush 5-40 mL, 5-40 mL, IntraVENous, PRN, Kaylin Thomas DO sodium chloride 0.9% (NS) flush 5-40 mL, 5-40 mL, IntraCATHeter, q8h, Kaylin Husseinmann, DO, 10 mL at 11/01/24 1351 sodium chloride 0.9% (NS) flush 5-40 mL, 5-40 mL, IntraVENous, PRN, Kaylin Thomas, DO, 10 mL at 10/27/242031 sulfamethoxazole-trimethoprim (Bactrim DS) 800-160 MG per tablet 1 tablet, 1 tablet, Oral, Daily, Shamar Bearden MD, 1 tablet at 11/01/24 0810 Nutrition [...] transferred here last night after being at [facility] for 9 days). Please continue to record % consumed of meals in I/O Flowsheet. RD to monitor weight (confirm/monitor for Nephrology comment on pt's current EDW), labs, fluid, overall nutritional status & follow up weekly. Malnutrition Assessment: Malnutrition Status: At risk for malnutrition (Comment) (continue with ONS and liberalized diet; noted MD or 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 have been documenting Severe Malnutrition since 10/23) [...] Accumulation: No significant fluid accumulation (per chart) Jackerman Strength: Not Performed Nutrition Assessment: Pt with PMH including ESRD on HD, Seizures, HTN, HLD, recent admission to OSH for sudden cardiac arrest 05/07 right thigh/hip abscess s/p I&D 08/16 presented initially to [facility] from SNF on 10/22 due to AMS; in ED pt noted to be febrile 101.3 at SNF, tachycardic, tachypneic and with elevated WBC, received IV fluid bolus, antibiotics, admitted to [facility] for further work up; Critical care consulted the following day as pt remained febrile, tachycardic and tachypneic, WBC count also continuing to increase with worsening anemia; pt has had multiple admissions 08/14 to 08/24 at [facility] for cardiac arrest, 08/26 to 09/06 at [...] catheter placed on discharge on 10/12; at [facility] PT/OT/LP, ID, Nephrology, and Wound Care consulted; pt was transferred out of ICU services to medical services on 10/24, noted to be receiving Meropenem and Vancomycin IV (stopped, transitioned to oral abx) for infected pressure ulcer on left buttocks, last HD 10/31; on 10/27 pt received 1 unit of blood (3rd unit pt had received there); at [facility] Palliative Care was following, speaking with pt's brother, code status changed to DNR-CCA; pt noted to need fistula placement for HD, has temp HD cath in place, transferred here yesterday for new fistula placement; here Vascular was consulted for same, recommended OR for assessment of AV fistula clot/infection 11/02. MULTI NEEDLE MACHINE OPERATOR following (signed off today), diet progressed to [...] she would have last received while at [facility]. Nutrition Related Findings: pos I/O (4.3L); +BS, last BM 10/30; No edema indicated; medications include renvela; labs: SCr (2.98), BG (67) Wound Type: Pressure Injury, Unstageable (sacrum extending to L buttock) Current Nutrition Therapies: Adult diet Regular Current Oral Intake Average Meal Intake: 0%, 1-25%, 26-50%, 51-75%, 76-100% (per flowsheet) Average Supplements Intake: Unable to assess ([facility] [facility] last night) Anthropometric Measures: Height: 162.6 cm (5' 4") Current Body Weight: 51 kg (112 lb [...] bed scale) % Weight Change (Calculated): -1.2 [place] Body Weight (lbs) (Calculated): 120 lbs [place] Body Weight (Kg) (Calculated): 55 kg % [place] Body Weight (Calculated): 97.7 % BMI (kg/m2) [...] Alexus Denney RD Contact: Secure chat or *[phone] Images from the original note were not included. PHYSICAL THERAPY [facility] Re-Evaluation Name/MRN: Apoorva Gonzalez ([id number]) Evaluation Date: 11/01/2024 Date of : 1950 Admission Date: 10/22/2024 12:48 PM Age: 74 y.o. Room/Bed: [facility] A Discharge Recommendation: [facility] Facility Equipment Needed: No Assessment IMPRESSION: PT re-evaluation completed d/t pt transfer [facility]. She is here for sepsis, fever, lethargy. Max A for mobility, SHIPPING AGENT required assist for all from SNF. Will [...] a [facility] Therapy Services Physical Therapist. Goals and/or treatment plan was established in collaboration with patient/family/other representatives. [1] Past Medical History: Diagnosis Date Chronic kidney disease (CKD) Hemodialysis patient ([facility]/HCC) ([facility]) Wednesday, , Wednesday History of blood transfusion 02/27/2022 Hypertension Seizure ([facility]) Developed seizure-like activity on 02/24 during hospital admission [2] Past Surgical History: Procedure Laterality Date AV FISTULA PLACEMENT Left 08/07/2022 COLONOSCOPY N/A 01/25/2024 Performed by Chrissy Gilman MD at [facility] ENDOSCOPY IR CVC TUNNELED DIALYSIS CATHETER PLACEMENT 02/27/2022 IR CVC TUNNELED CATHETER PLACEMENT 02/27/2022 Candis Andrade MD [facility] SPECIAL PROCEDURES IR EMBOLIZATION 01/24/2024 IR EMBOLIZATION 01/24/2024 Jovan Glynn MD [facility] SPECIAL PROCEDURES Images from the original note were not included. Speech-Language Pathology SPEECH LANGUAGE PATHOLOGY [facility] Dysphagia Treatment Note Patient Name: Apoorva Gonzalez Evaluation Date: 11/01/2024 Date of : 1950 Admission Date: 10/22/2024 12:48 PM Age: 74 y.o. Room/Bed: [facility] A Subjective Patient alert and [...] bites/sips Patient has achieved all acute care MULTI NEEDLE MACHINE OPERATOR goals. Speech therapy to sign off at [...] Expected End: 11/07/24 Resolved: 11/01/24 Therapy Time MULTI NEEDLE MACHINE OPERATOR Individual Minutes Time In: 1034 Time Out: 1044 Minutes: 10 NIRU Lewis Sash Finisher Cosigned by EDGAR Paniagua at 11/01/2024 11:04 AM EDT Hospitalist Progress Note 11/01/2024 Subjective: Admit Date: 10/22/2024 PCP: Roxie Spain Room#: W6-607/W6-737 A Interval History: On room air. Hypertensive. No fever. Unable to obtain review of system. Adult diet Regular 24HR INTAKE/OUTPUT: Intake/Output Summary (Last 24 hours) at 11/01/2024 0910 Last data filed at 10/31/2024 1440 Gross per 24 hour Intake 300 ml Output -- Net 300 ml Past Medical History: Medical History[1] LABS: CBC: Recent Labs 10/30/24 0455 10/31/24 0526 11/01/24 0317 WBC 18.2* 17.2* 20.4* RBC 2.85* 2.91* 2.75* HGB 8.3* 8.5* 8.0* HCT 26.3* 26.6* 25.2* MCV 92.3 91.4 91.6 RDW 16.6* 16.7* 16.6* PLT 502* 531* 557* BMP: Recent Labs 10/30/24 0455 10/31/24 0526 11/01/24 0317 NA 143 143 139 K 4.2 4.4 4.6 CL 110* 110* 104 CO2 26 23 22* BUN 21 27* 14 CREATININE 3.52* 4.44* 2.98* GLUCOSE 79* 73* 67* CALCIUM 7.7* 8.0* 7.7* ANIONGAP 7 10 13 LIVER PROFILE:No results for input(s): "AST", "ALT", "BILITOT", "ALKPHOS", "PROT" in the last 72 hours. No lab exists for component: LABALBU PT/INR: No results for input(s): "PROTIME", "INR" in the last 72 hours. CARDIAC ENZYMES: No results for input(s): "TROPONINI" in the last 72 hours. Procalcitonin: No results found for: "PROCAL" COVID-19 PCR: No results for input(s): "COVID19" in the last 72 hours. Objective: Vitals: BP (!) 160/108 (BP Location: Right arm, Patient Position: Sitting) Pulse 112 Temp 37.2 C (98.9 F) (Temporal) Resp 18 Ht 5' 4" (1.626 m) Wt 112 lb 7 oz [...] with fever and tachycardia and lethargy to [facility] on 10/22/24. HC POA is partner = Edward and brother Deshawn Recently admitted from 09/13 to 10/12 at [facility] for new onset atrial fibrillation complicated [...] recent infected hematoma which was I&D at [facility] and treated with antibiotics from 08/14-08/24 in which she went under cardiac arrest which was thought to be due to the right thigh and anterior hip abscess - which was drained and she left with wound vac. Returned on 08/26 for expanding hematoma to the right thigh requiring 2 units of pRBC, and transferred to [facility] for IR emobolization of thigh hematoma, but a decision was made not to perform any intervention and she was discharged to SNF on 09/06. 10/22-10/31 [facility] ICU. Patient did not require vasopressors. October 28 transferred to [facility]. October 31 decided to transfer patient to [facility] for vascular assessment of fistula [...] History of cardiopulmonary arrest August 2024 at [facility] Continue [facility] Extended Emergency Contact Information Primary Emergency Contact: Deshawn Crystal Mobile Relation: Brother Elementary School Teacher'S Aide needed? No Secondary Emergency Contact: Edward Ruggiero Mobile Relation: Significant Other Preferred language: [employer] Teacher'S Aide needed? No Candy Denis DO Division of Hospitalist Medicine Acute [facility] [1] Past Medical History: Diagnosis Date [...] original note were not included. PHYSICAL THERAPY [facility] Name/MRN: Apoorva Gonzalez ([id number]) Date: 10/31/2024 Chart review completed. Unable to see pt currently secondary to receiving dialysis. Noted plan to transfer pt to [facility] for vascular consult. Will follow [...] PRN, Kaylin Thomas DO, 650 mg at 10/27/2433 acetaminophen (Tylenol) tablet 650 mg, 650 mg, Oral, q6h PRN, Kaylin Thomas DO amLODIPine (Norvasc) tablet 5 mg, 5 mg, Oral, Daily, Ana Boyce APRN - 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, 5 mg at 10/31/24 0820 chlorhexidine (Hibiclens) 4 % solution, , Topical, Daily, Kaylin Thomas DO, Given at 10/30/24 1630 collagenase 250 UNIT/GM ointment, , Topical, PRN, Kaylin Thomas, collagenase 250 UNIT/GM ointment, , Topical, Daily, [...] PRN, Kaylin Husseinmann, DO, 2,000 Units at 10/26/24 1341 heparin injection 1,200-2,000 Units, 1,200-2,000 Units, IntraCATHeter, PRN, Kaylin Husseinmann, DO, 2,100 Units at 10/28/24 1221 heparin injection 1,200-2,000 Units, 1,200-2,000 Units, IntraCATHeter, PRN, Kaylin Husseinmann, DO, 2,000 Units at 10/28/24 1221 heparin injection 5,000 Units, 5,000 Units, SubCUTAneous, 2 times per day, Kaylin Thomas DO, 5,000 Units at 10/31/24 0820 hydrALAZINE (Apresoline) injection 10 mg, 10 mg, IntraVENous, q4h PRN, Ana Boyce TOOL ROOM ATTENDANT - 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, 10 mg at 10/30/24 0451 labetalol (Normodyne,Trandate) [...] infusion, 250 mL/hr, IntraVENous, PRN, Ana Boyce, TOOL ROOM ATTENDANT - 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 sodium chloride 0.9% (NS) flush 5-40 mL, 5-40 mL, IntraVENous, 2 times per day, Kaylin Thomas DO, 10 mL at 10/31/24 0821 sodium chloride 0.9% (NS) flush 5-40 mL, 5-40 mL, IntraVENous, PRN, Kaylin Thomas DO sodium chloride 0.9% (NS) flush 5-40 mL, 5-40 mL, IntraCATHeter, q8h, Kaylin Thomas DO, 10 mL at 10/31/24 0526 sodium chloride 0.9% (NS) flush 5-40 mL, 5-40 mL, IntraVENous, PRN, Kaylin Thomas DO, 10 mL at 10/27/242031 sulfamethoxazole-trimethoprim (Bactrim DS) 800-160 MG per tablet 1 tablet, 1 tablet, Oral, Daily, Shamar Bearden MD, 1 tablet at 10/31/24 0820 traMADol (Ultram) tablet 50 mg, 50 mg, Oral, q8h PRN, Ana oByce, TOOL ROOM ATTENDANT - 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 Hospitalist Progress Note 10/31/2024 Subjective: Admit Date: 10/22/2024 PCP: Roxie Spain Room#: B2-258/B2-258 A BRIEF HOSPITAL COURSE: Apoorva Gonzalez is a 74 year old female who presented 10/22 from [facility] due to altered mental status. In the ED was noted to be febrile 101.3 at SNF, tachycardic, tachypneic and with elevated WBC. Received IV fluid bolus, antibiotics. Admitted to [facility] for further work up. Critical care consulted the following day as patient remained febrile, tachycardic and tachypneic. WBC count also continuing to increase with worsening anemia. Patient has had multiple admissions 08/14 to 08/24 at [facility] for cardiac arrest, 08/26 to 09/06 [...] 10/28/24 Patient moved out of ICU to [address] [place], [place] [address], dialysis being set up this morning, hemoglobin remains stable overnight at 9.3 10/30/24 IV Zosyn stopped, oral ATB started in the afternoon by ID, reached out to vascular they do not come to [place] willing to see patient at [facility] Interval History: 10/31/24 Discussed plan with patient's POA/brother Deshawn- instead of getting authorization for [facility] approval, going to [facility] then turning around to return to outpatient vascular appointment to evaluate fistula for potential source of infection, he is agreeable to transfer to [facility] for vascular assessment and/or removal of current fistula, patient has temporary vas cath right now. Reached out to vascular this morning Dr Rojas in procedure, resident cannot accept, will wait [...] nurse. All questions answered. Spoke with Dr Rojas and admitting team at [facility], accepted transfer and will assess [...] 464* 502* 531* BMP: Recent Labs 10/29/24 04310/30/24 0455 10/31/24 0526 NA 143 143 143 K 3.9 4.2 4.4 CL 108* 110* 110* CO2 24 26 23 BUN 14 21 27* CREATININE 2.73* 3.52* 4.44* GLUCOSE 85 79* 73* CALCIUM 7.9* 7.7* 8.0* ANIONGAP 11 7 10 LIVER PROFILE:No results for input(s): "AST", "ALT", "BILITOT", "ALKPHOS", "PROT" in the last 72 hours. No lab exists for component: LABALBU PT/INR: No results for input(s): "PROTIME", "INR" in the last 72 hours. CARDIAC ENZYMES: No results for input(s): "TROPONINI" in the last 72 hours. Procalcitonin: No results found for: "PROCAL" COVID-19 PCR: No results for input(s): "COVID19" in the last 72 hours. Objective: Vitals: BP (!) 158/107 Pulse 109 Temp 36.5 C (97.7 F) (Temporal) Resp 16 Ht 1.626 m (5' 4") Wt 51 kg (112 lb 7 oz) [...] Keppra HTN HLD Debility Recent CDIFF-treated at [facility] Plan As a result of [...] to update we will proceed transfer to [facility] for vascular surgery to evaluate, [...] code status now DNR CCA 10/27/24, Deshawn arredondo/GENET - home medications resumed - am labs, [...] - TBD - Location - transfer to [facility] then pursue SNF for rehab - Pending the following - pending acceptance Toxic drug monitoring/narrow therapeutic index drug monitoring : # Drug name : # Route administered : # Method of monitoring : Extended Emergency Contact Information Primary Emergency Contact: Deshawn Crystal Mobile Relation: Brother Elementary School Teacher'S Aide needed? No Secondary Emergency Contact: Edward Ruggiero Mobile Relation: Significant Other Preferred language: [employer] Teacher'S Aide needed? No PARK Ureña CNP Division of Hospitalist Medicine [facility] [1] Past Medical History: Diagnosis Date Chronic kidney disease (CKD) Hemodialysis patient (CMS/HCC) ([facility]) Wednesday, , Wednesday History of blood transfusion 02/27/2022 Hypertension Seizure ([facility]) Developed seizure-like activity on 02/24 during hospital [...] not included. Speech-Language Pathology SPEECH LANGUAGE PATHOLOGY [facility] Dysphagia Treatment Note Patient Name: Apoorva Gonzalez Evaluation Date: 10/31/2024 Date of : 1950 Admission Date: 10/22/2024 12:48 PM Age: 74 y.o. Room/Bed: [facility]258 A Subjective Patient alert and cooperative. [...] Would you dial that number on the board" Pain: RN managing pain. No current complaints [...] Plan: Continue dysphagia POC. Possible transfer to [facility] if need surgery for infected [...] Start: 10/24/24 Expected End: 11/07/24 Therapy Time MULTI NEEDLE MACHINE OPERATOR Individual Minutes Time In: 922 Time Out: 938 Minutes: 16 NIRU Quiroz Images from the original note were not included. [facility] Wound Care Progress Note Apoorva Gonzalez AGE: 74 y.o. GENDER: female : 1950 Subjective: HISTORY of PRESENT ILLNESS HPI Apoorva Gonzalez is a 74 y.o. female who presents for a wound care follow up. HPI: Apoorva is a 74 y.o. female who presented to the emergency department on 10/22/24 with chief complaint of AMS. Pt is resident of [place] [facility]. Report one day of increasing weakness and AMS. She receives dialysis 5x/week Wed-Wednesday. No missed sessions. Temp 101.3F at [facility]. Hospitalized from 08/14 - 08/24 at [facility] for cardiac arrest and sepsis and again from 08/26 to 09/06 at for sepsis believed to be due to an infected right thigh wound and hematoma. Hospitalized again at [facility] from 09/13 - 10/12 due to covid-19 sepsis and electrolyte derangements. Wound Care consulted for pressure Injury coccyx and buttock" Patient resting in regular bed at time [...] (98 F) (Temporal) Resp 18 Ht 5' 4" (1.626 m) Wt 114 lb (51.7 kg) SpO2 100% BMI 19.57 kg/m PHYSICAL EXAM General appearance: in no apparent distress, well developed and well nourished, in no respiratory distress and acyanotic, alert, cooperative, and moderately ill Skin: warm and dry Pulmonary: Normal effort, no respiratory distress, no cyanosis Sacrum extending to left buttock: [id number] cm. Wound bed with a mix of [...] (H) 10/30/2024 PT/INR: No results found for: "PROTIME", "INR" Prealbumin: No results found for: PREALBUMIN Albumin:No [...] to follow Recommend to follow up at [facility] Outpatient wound care center after hospital discharge. Any questions or concerns please secure chat "[facility] wound/ostomy". Thank you for the consult! I personally [...] 01/25/2024 Performed by Chrissy Gilman MD at [facility] ENDOSCOPY IR CVC TUNNELED DIALYSIS CATHETER PLACEMENT 02/27/2022 IR CVC TUNNELED CATHETER PLACEMENT 02/27/2022 Candis Andrade MD [facility] SPECIAL PROCEDURES IR EMBOLIZATION 01/24/2024 IR EMBOLIZATION 01/24/2024 Jovan Glynn MD [facility] SPECIAL PROCEDURES [3] Family History [...] as needed for constipation. Spiritual Care Note [facility] Palliative Care Patient Name:Apoorva Gonzalez Chief Complaint: Chief Complaint Patient presents with Altered Mental Status Pt came from intermediate. Squad was called for weakness and altered [...] and when patient is able. Debriefed: with welder manufacture team. Gretchen Adames 10/30/24 Consult acknowledged. Concern for infected LUE AVG. The patient will need transferred to [facility] for any vascular surgical evaluation/procedure as we have no operative time available to us at [facility]. Ana Boyce, TOOL ROOM ATTENDANT-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 contacted. Raffy Rojas MD Vascular Surgery Hospitalist Progress Note 10/30/2024 Subjective: Admit Date: 10/22/2024 PCP: Roxie Spain Room#: B2-258/B2-258 A BRIEF HOSPITAL COURSE: Apoorva Gonzalez is a 74 year old female who presented 10/22 from [facility] due to altered mental status. In the ED was noted to be febrile 101.3 at [facility], tachycardic, tachypneic and with elevated WBC. Received IV fluid bolus, antibiotics. Admitted to [facility] for further work up. Critical care consulted the following day as patient remained febrile, tachycardic and tachypneic. WBC count also continuing to increase with worsening anemia. Patient has had multiple admissions 08/14 to 08/24 at [facility] for cardiac arrest, 08/26 to 09/06 at for sepsis believed to be due to an infected right thigh wound and hematoma; [facility] from 09/13 - 10/12/24 due [...] Patient moved out of ICU to 2 [facility] PCU, dialysis being set up this morning, hemoglobin [...] History: Medical History[1] LABS: CBC: Recent Labs 10/28/2415 10/29/247 10/30/24 0455 WBC 26.6* 22.8* 18.2* RBC [...] 11 7 LIVER PROFILE:No results for input(s): "AST", "ALT", "BILITOT", "ALKPHOS", "PROT" in the last 72 hours. No lab exists for component: LABALBU PT/INR: No results for input(s): "PROTIME", "INR" in the last 72 hours. CARDIAC ENZYMES: No results for input(s): "TROPONINI" in the last 72 hours. Procalcitonin: No results found for: "PROCAL" COVID-19 PCR: No results for input(s): "COVID19" in the last 72 hours. Objective: Vitals: BP 151/86 (BP Location: Right arm, Patient Position: Sitting) Pulse 104 Temp 36.8 C (98.2 F) (Temporal) Resp 18 Ht 1.626 m (5' 4") Wt 51.7 kg (114 lb) SpO2 100% [...] Keppra HTN HLD Debility Recent CDIFF-treated at [facility] Plan As a result of [...] following, recommending SNF, will go back to [facility], palliative consult will be placed when [...] Emergency Contact: Deshawn Crystal Mobile Relation: Brother Elementary School Teacher'S Aide needed? No Secondary Emergency Contact: Edward Ruggiero Mobile Relation: Significant Other Preferred language: [employer] Teacher'S Aide needed? No Ana Boyce APRN - [facility] Division of Hospitalist Medicine [place] Acute care [facility] [1] Past Medical History: Diagnosis [...] sodium chloride 0.9%, sodium chloride 0.9% [4] [facility] - Infectious Diseases Attending Progress [...] Lab Results Component Value Date/Time NA 143 10/30/2024 0455 K 4.2 10/30/2024 0455 CL 110 (H) 10/30/2024 0455 CO2 26 10/30/2024 0455 BUN 21 10/30/2024 0455 CREATININE 3.52 (H) 10/30/2024 0455 GLUCOSE 79 (L) 10/30/2024 0455 CALCIUM 7.7 (L) 10/30/2024 0455 PROT 5.6 (L) 10/24/2024 0649 BILITOT 0.5 10/24/2024 0649 ALKPHOS 150 10/24/2024 0649 AST 28 10/24/2024 0649 ALT <6 10/24/2024 0649 PROCAL 68.03 (H) 10/05/2024 1419 PROCAL 19.25 (H) 09/15/2024 0308 PROCAL 76.25 (H) 09/14/2024 0541 Lab Results Component Value Date/Time WBC 18.2 (H) 10/30/2024 0455 HGB 8.3 (L) 10/30/2024 0455 HGB 9.1 10/05/2024 1419 HCT 26.3 (L) 10/30/2024 0455 PLT 502 (H) 10/30/2024 045 LYMPHOPCT 4 (L) 10/30/2024 045 MONOPCT 3 (L) 10/30/2024 045 BASOPCT 1 10/28/2024 0515 NEUTROABS 16.9 (H) [...] excised. Encephalopathy- worse today( compared to previous [facility] admission) Leukocytosis. ESRD, on HD. Recent h/o [...] not included. Speech-Language Pathology SPEECH LANGUAGE PATHOLOGY [facility] Dysphagia Treatment Note Patient Name: Apoorva Gonzalez Evaluation Date: 10/30/2024 Date of : 1950 Admission Date: 10/22/2024 12:48 PM Age: 74 y.o. Room/Bed: [facility]258/[facility]258 A Subjective Patient alert and cooperative. [...] upgrade. Plan & Recommendations Plan: Continue acute MULTI NEEDLE MACHINE OPERATOR therapy per initial plan of care and [...] Response: verbalizes understanding Goals Patient Stated Goal: "Can you get me a nice cold beer? That sounds good" Encounter Problems Encounter Problems (Active) Swallowing Patient will tolerate the least restrictive diet consistency to allow for safe consumption of daily meals (Progressing) Start: 10/24/24 Expected End: 11/07/24 Patient will demonstrate safe swallowing Intervention/techniques (Progressing) Start: 10/24/24 Expected End: 11/07/24 Patient will use appropriate strategies for increased oralpharyngeal swallow function (Progressing) Start: 10/24/24 Expected End: 11/07/24 Therapy Time MULTI NEEDLE MACHINE OPERATOR Individual Minutes Time In: 939 Time Out: 954 Minutes: 15 Christine Barnes CCC-MULTI NEEDLE MACHINE OPERATOR Images from the original note were not included. Palliative Care Progress Note Chief Complaint: Apoorva Gonzalez is a 74 y.o. female with chief complaint of fever. Palliative Care is signing off, please re-consult if needed. (add SIGNOFFTRANSITION dotphrase below) Assessment/Plan Goals of care Apoorva Gonzalez maintains capacity for medical decision-making -legal surrogate decision maker is HCPASTRID, Brother Deshawn Crystal ( ) Alternate is s/o Edward Ruggiero [phone]) -HCPOA documented to have been filled out at facility recently-->copy was emailed to me today from [facility]. Faxed to medical records to be scanned into chart. -Goals of care include-->1)CONTINUE ATBX 2)RETURN TO FACILITY 3)PALLIATIVE REFERRAL PATIENT NOT REDY FOR HOSPICE AT THIS TIME. Sepsis -Recent admission at [facility] for sepsis, Cdiff. -Had central line replaced and noted that IV ATBX course will be finished out PO at facility. -Monitor for s/s repeat infection, continued decline, patient is hospice appropriate, however -Monitor. Acute encephalopathy -Improved since last seen. -Monitor. Dysphagia -Patient now cleared for regular diet after being seen by MULTI NEEDLE MACHINE OPERATOR -Monitor. Debility Wounds -ongoing, 2/2 chronically ill and long hospitalizations recently. -This is her 5th admission over the last year. -Noted WCB at baseline at facility. -PT/OT-->recommending SNF -Planning return to facility at [place] -Monitor. Hx Seizures -Keppra 500 mg IVPB continued. -Monitor. Hx ESRD -Dialysis patient, nephrology managing. -Noted that tunneled like previously inserted last admission (ACH-->10-13) -Avoid nephrotoxic medications. -Renally dose medications Hx CP arrest --->while at [facility]. Palliative Care Encounter -Code Status: [...] Family/Caregiver Advanced Directives: Health Care Power of It Admin, DNR Functional Assessment: PPS 50% mainly sit/lie; can't do any work/extensive disease; considerable assistance; normal or reduced intake; full LOC or confusion Prognosis: depends upon goals of care Spiritual Assessment: No spiritual distress identified Bereavement and Grief: To Be Determined ROS: See palliative care ROS/ESAS below; Detail ROS unable to be obtained due to patient's mental status Powersite Symptom Assessment Score Powersite Score Pain Score (if non-verbal, add .FLACC [...] (99 F) (Temporal) Resp 18 Ht 5' 4" (1.626 m) Wt 114 lb (51.7 kg) [...] not consistent with GOC at this time Apoorva Gonzalez has been seen in consultation by [facility] Palliative Care during their admission to [facility]. They currently have no uncontrolled symptoms and have established goals of care and we have signed off of their case. The patient has established follow-up with palliative care team and PCP. PARK Prajapati CNP Images from the original note were not included. PHYSICAL THERAPY [facility] Treatment Note Name/MRN: Apoorva Gonzalez ([id number]) Date of : 1950 Age: 74 y.o. Room/Bed: B2-258/B2258 A Visit #: 2 out of 5 [...] to do anything else. Let me lay down." Balance During Session: Posture: poor Sitting - [...] was noted to be febrile 101.3 at [facility], tachycardic, tachypneic and with elevated WBC. Received IV fluid bolus, antibiotics. Admitted to [facility] for further work up. Critical care consulted the following day as patient remained febrile, tachycardic and tachypneic. WBC count also continuing to increase with worsening anemia. Patient has had multiple admissions 08/14 to 08/24 at [facility] for cardiac arrest, 08/26 to 09/06 [...] [facility] being [facility] up this morning, hemoglobin remains stable overnight at 9.3, Interval History: 10/29/24 patient sitting upright in bed just finished breakfast lights are off, patient appears cold got her a warm blanket, patient had no complaints of overall pain denied chest pain or shortness of breath, fever/chills, nausea, reports her appetite is "fine" Case and plan discussed with patient and [...] 11 11 LIVER PROFILE:No results for input(s): "AST", "ALT", "BILITOT", "ALKPHOS", "PROT" in the last 72 hours. No lab exists for component: LABALBU PT/INR: No results for input(s): "PROTIME", "INR" in the last 72 hours. CARDIAC ENZYMES: No results for input(s): "TROPONINI" in the last 72 hours. Procalcitonin: No results found for: "PROCAL" COVID-19 PCR: No results for input(s): "COVID19" in the last 72 hours. Objective: Vitals: BP (!) 186/101 (BP Location: Right arm, Patient Position: Lying) Pulse 109 Temp 36.9 C (98.5 F) (Temporal) Resp 24 Ht 1.626 m (5' 4") Wt 50 kg (110 lb 3.7 oz) [...] Keppra HTN HLD Debility Recent CDIFF-treated at [facility] Plan As a result of [...] Emergency Contact: Deshawn Crystal Mobile Relation: Brother Elementary School Teacher'S Aide needed? No Secondary Emergency Contact: Edward Ruggiero Mobile Relation: Significant Other Preferred language: [employer] Teacher'S Aide needed? No Ana Boyce APRN - 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 Division of Hospitalist Medicine [facility] [1] Past Medical History: Diagnosis Date Chronic kidney disease (CKD) Hemodialysis patient ([facility]) ([facility]) Wednesday, , Wednesday History of blood transfusion [...] year old female who presented 10/22 from [facility] due to altered mental status. In the ED was noted to be febrile 101.3 at [facility], tachycardic, tachypneic and with elevated WBC. Received IV fluid bolus, antibiotics. Admitted to [facility] for further work up. Critical care consulted the following day as patient remained febrile, tachycardic and tachypneic. WBC count also continuing to increase with worsening anemia. Patient has had multiple admissions 08/14 to 08/24 at [facility] for cardiac arrest, 08/26 to 09/06 [...] 10/28/24 Patient moved out of ICU to [address] [place], [place] [address], dialysis being set up this morning, hemoglobin remains stable overnight at 9.3, patient denies pain, chest pain, shortness of breath, states she is "not having pain yet" denies fever/chills, denies N/V, flat affect, doesn't [...] 8 11 LIVER PROFILE:No results for input(s): "AST", "ALT", "BILITOT", "ALKPHOS", "PROT" in the last 72 hours. No lab exists for component: LABALBU PT/INR: No results for input(s): "PROTIME", "INR" in the last 72 hours. CARDIAC ENZYMES: No results for input(s): "TROPONINI" in the last 72 hours. Procalcitonin: No results found for: "PROCAL" COVID-19 PCR: No results for input(s): "COVID19" in the last 72 hours. Objective: Vitals: BP (!) 179/101 Pulse 102 Temp 36.1 C (96.9 F) Resp 18 Ht 1.626 m (5' 4") Wt 52.3 kg (115 lb 4.8 oz) [...] Keppra HTN HLD Debility Recent CDIFF-treated at [facility] Plan As a result of [...] received 1 unit PRBC - ESRD T, , S-receiving dialysis today - Nephrology following - [...] Emergency Contact: Deshawn Crystal Mobile Relation: Brother Elementary School Teacher'S Aide needed? No Secondary Emergency Contact: Edward Ruggiero Mobile Relation: Significant Other Preferred language: [employer] Teacher'S Aide needed? No APRK Ureña CNP Division of Hospitalist Medicine [facility] [1] Past Medical History: Diagnosis Date Chronic [...] from the original note were not included. [facility] - Infectious Diseases Attending Progress [...] -- -- -- -- 1.626 m (5' 4") -- 10/26/24 1430 (!) 183/87 -- -- 108 -- -- -- -- 10/26/24 1415 (!) 176/95 -- -- 105 -- -- -- -- 10/26/24 1400 -- -- -- 103 -- -- 1.626 m (5' 4") 53.2 kg (117 lb 4.6 oz) 10/26/24 [...] fistula Encephalopathy- worse today( compared to previous [facility] admission) Leukocytosis. ESRD, on HD. Recent h/o [...] year old female who presented 10/22 from [facility] due to altered mental status. In the ED was noted to be febrile 101.3 at [facility], tachycardic, tachypneic and with elevated WBC. Received IV fluid bolus, antibiotics. Admitted to [facility] for further work up. Critical care consulted the following day as patient remained febrile, tachycardic and tachypneic. WBC count also continuing to increase with worsening anemia. Patient has had multiple admissions 08/14 to 08/24 at [facility] for cardiac arrest, 08/26 to 09/06 [...] Th, Sat HD. Patient currently resides at [facility] and will return on discharge Interval History: 10/27/24: Patient sitting up in bed eating breakfast, Hgb this morning was 6.7, discussed type and screen, blood consent, patient agreeable to consent for 1 unit PRBC. Patient much more alert today, wasn't happy ST was there, "I can swallow my food just fine, I don't need you here" you can stand there and watch me if you want" Patient appears weak but able to feed self, denies having pain, denied shortness of breath/chest pain when assessing her, has trouble recalling date/time, knows her , can say she is in the hospital. I told her that her buttocks looks pretty good from the picture I seen and she said " I told you that yesterday." Case and plan discussed with patient and [...] 12 8 LIVER PROFILE:No results for input(s): "AST", "ALT", "BILITOT", "ALKPHOS", "PROT" in the last 72 hours. No lab exists for component: LABALBU PT/INR: No results for input(s): "PROTIME", "INR" in the last 72 hours. CARDIAC ENZYMES: No results for input(s): "TROPONINI" in the last 72 hours. Procalcitonin: No results found for: "PROCAL" COVID-19 PCR: No results for input(s): "COVID19" in the last 72 hours. Objective: Vitals: BP 138/76 Pulse 98 Temp 36.9 C (98.4 F) Resp 18 Ht 1.626 m (5' 4") Wt 51.6 kg (113 lb 12.1 oz) [...] problems/diagnoses: Severe sepsis HAGMA Encephalopathy ESRD on HD-, , S Acute on chronic normocytic anemia Left buttocks pressure ulcer stage 3 Severe malnutrition dysphagia Stable chronic problems affecting care, new non-acute diagnoses: Seizure disorder- on Keppra HTN HLD Debility Recent CDIFF-treated at [facility] Plan As a result of [...] PRBC, Type and Screen completed - ESRD , , S-had dialysis yesterday - Nephrology following - ST/PT/OT following, patient upset that ST consulted, " I don't need you here" continue soft solid bites, thin liquids and [...] Emergency Contact: Deshawn Crystal Mobile Relation: Brother Elementary School Teacher'S Aide needed? No Secondary Emergency Contact: Edward Ruggiero Mobile Relation: Significant Other Preferred language: [employer] Teacher'S Aide needed? No Ana Boyce APRN - 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 Division of Hospitalist Medicine [facility] [1] Past Medical History: Diagnosis Date Chronic kidney disease (CKD) Hemodialysis patient (CMS/HCC) (HCC) Wednesday, , Wednesday History of blood transfusion 02/27/2022 Hypertension Seizure ([facility]) Developed seizure-like activity on 02/24 during hospital [...] not included. Speech-Language Pathology SPEECH LANGUAGE PATHOLOGY [facility] Dysphagia Treatment Note Patient Name: Apoorva Gonzalez Evaluation Date: 10/27/2024 Date of : 1950 Admission Date: 10/22/2024 12:48 PM Age: 74 y.o. Room/Bed: 222/ A Subjective Patient alert, confused and agitated. Seen upright in bed. Answers some basic questions with clear vocal quality. Follows some basic commands. Visitors at bedside - DRYING CAN WORKER. Spoke with RNAna, who cleared pt for [...] Diet tolerance & trials Pt agitated with MULTI NEEDLE MACHINE OPERATOR this am, stating "I don't need you, don't touch my food". Pt was observed to be self-feeding at MULTI NEEDLE MACHINE OPERATOR's arrival. MULTI NEEDLE MACHINE OPERATOR provided explanation for purpose of therapy & goals of care - to upgrade pt's diet as appropriate. Pt stating "You can watch me eat but that's it". Pt was observed to tolerated 3 bites of scrambled eggs & ice cream with functional mastication, achieving full bolus clearance & no overt s/s of aspiration/penetration. MULTI NEEDLE MACHINE OPERATOR offered pt regular PO trials (dipti vasquez) with pt stating Don't touch anything, I don't need this, leave me be". MULTI NEEDLE MACHINE OPERATOR adhered to pt's wishes at this time to decrease agitation, RN notified. Continue with current diet at this time - allow pt to self-feed if mentation continues to improve. Plan & Recommendations Plan: Continue acute MULTI NEEDLE MACHINE OPERATOR therapy per initial plan of care and [...] Response: verbalizes understanding Goals Patient Stated Goal: "Leave me be" Encounter Problems Encounter Problems (Active) Swallowing Patient will tolerate the least restrictive diet consistency to allow for safe consumption of daily meals (Not Progressing) Start: 10/24/24 Expected End: 11/07/24 Patient will demonstrate safe swallowing Intervention/techniques (Not Progressing) Start: 10/24/24 Expected End: 11/07/24 Patient will use appropriate strategies for increased oralpharyngeal swallow function (Not Progressing) Start: 10/24/24 Expected End: 11/07/24 Therapy Time MULTI NEEDLE MACHINE OPERATOR Individual Minutes Time In: 904 Time Out: 15 Minutes: 10 Christine Barnes CCC-MULTI NEEDLE MACHINE OPERATOR Images from the original note were not [...] ( ) Alternate is s/o Edward Ruggiero [phone]) - patient seen this am, she was [...] - discussed with bedside RN, primary team TOOL ROOM ATTENDANT-TAMIR Boyce - will continue to have ongoing goals of care conversations with patient, family Severe sepsis - likely secondary to infected left buttock pressure ulcer due to enterobacter cloacae complex , 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 female admitted to [facility] on 10/22 from facility with [...] Family/Caregiver Advanced Directives: Health Care Power of It Admin, DNR Functional Assessment: PPS 50% mainly sit/lie; can't do any work/extensive disease; considerable assistance; normal or reduced intake; full LOC or confusion Prognosis: depends upon goals of care Spiritual Assessment: No spiritual distress identified Bereavement and Grief: To Be Determined PDMP/OARRS Reviewed: Yes-reviewed Social history: Marital status: Children: one child, . Living status: intermediate Work history: n/a status: No Latter-Day erma: None ROS: See palliative care ROS/ESAS below; Detail ROS unable to be obtained due to patient's mental status Powersite Symptom Assessment Score Powersite Score Pain Score (if non-verbal, add .FLACC [...] (99.3 F) (Axillary) Resp 16 Ht 5' 4" (1.626 m) Wt 113 lb 12.1 oz [...] She had a recent long admission at [facility] for about a month, COVID-19, [...] run its natural course. Opal Boyd MD [facility] - Infectious Diseases Attending Progress Note Subjective: ID covering- Chart reviewed, patient is less interactive, mumbling and unable to provide ROS this time. Did grimace when abdominal exam was done. Incontinent of liquid stool. Objective: Vitals: Patient Vitals for the past 24 hrs: BP Temp Temp src Pulse Resp SpO2 Height Weight 10/26/24 1438 -- -- -- -- -- -- 1.626 m (5' 4") -- 10/26/24 1400 -- -- -- -- -- -- 1.626 m (5' 4") 53.2 kg (117 lb 4.6 oz) 10/26/24 [...] -- -- 111 -- -- -- -- 10/25/241926 (!) 180/88 -- -- [...] excised. Encephalopathy- worse today( compared to previous [facility] admission) Leukocytosis. ESRD, on HD. Recent h/o [...] Dysphagia - Soft and Bite Sized per MULTI NEEDLE MACHINE OPERATOR recommendation. No additional renal restrictions needed for [...] unable to state how she was eating SHIPPING AGENT) Weight Loss: No significant weight loss Body Fat Loss: Unable to assess (Limited d/t pt not cooperative) Muscle Mass Loss: Unable to assess (Limited cooperation from the patient; decreased level of alertness this afternoon) Fluid Accumulation: No significant fluid accumulation Jackerman Strength: Measurable reduction in mechanical service technician strength (per ship's engineer) Nutrition Assessment: Pt's diet advanced to Soft and Bite Sized 10/25 per MULTI NEEDLE MACHINE OPERATOR recommendation s/p evaluation 10/25 and 10/26. Pt [...] On: Kcal/kg Weight Used for Energy Requirements: [place] Weight for Energy Calculation (kg): 55 kg Total Energy Requirements (kcals/day): 1576-3673 (27-32 kcal/kg IBW) Weight Used for Protein Requirements: [place] Weight in Kg Used for Protein Requirements: [...] Ordered Anthropometric Measures: Height: 162.6 cm (5' 4") Current Body Weight: 53.2 kg (117 lb 4.6 oz) Weight Source: Bed Scale Admission Body Weight: 48.3 kg (106 lb 7.7 oz) (bed) Usual Body Weight: 48.9 kg (107 lb 12.8 oz) (Per EMR--> 110# 08/09/23; 105.4# 03/03/24; 112# 06/09/24; 107.8# 08/26/24; 114.4# 10/06/24 bed scale) % Weight Change (Calculated): -1.2 [place] Body Weight (lbs) (Calculated): 120 lbs [place] Body Weight (Kg) (Calculated): 55 kg % [place] Body Weight (Calculated): 97.7 % BMI (kg/m2) [...] soon to determine Kelly Castro RD Contact: *[phone] or via Secure Chat Images from the [...] Received IV fluid bolus, antibiotics. Admitted to [facility] for further work up. Critical care consulted the following day as patient remained febrile, tachycardic and tachypneic. WBC count also continuing to increase with worsening anemia. Patient has had multiple admissions 08/14 to 08/24 at [facility] for cardiac arrest, 08/26 to 09/06 [...] Th, Sat HD. Patient currently resides at [facility] and will return on discharge Interval [...] PROT 5.6* PT/INR: No results for input(s): "PROTIME", "INR" in the last 72 hours. CARDIAC ENZYMES: No results for input(s): "TROPONINI" in the last 72 hours. Procalcitonin: No results found for: "PROCAL" COVID-19 PCR: No results for input(s): "COVID19" in the last 72 hours. Objective: Vitals: BP (!) 181/101 Pulse 103 Temp 37.3 C (99.2 F) (Oral) Resp 16 Ht 1.626 m (5' 4") Wt 51.3 kg (113 lb 1.5 oz) [...] problems/diagnoses: Sever sepsis HAGMA Encephalopathy ESRD on HD-, , S Acute on chronic normocytic anemia Left buttocks pressure ulcer stage 3 Severe malnutrition dysphagia Stable chronic problems affecting care, new non-acute diagnoses: Seizure disorder- on Keppra HTN HLD Debility Recent CDIFF-treated at [facility] Plan As a result of [...] Emergency Contact: Deshawn Crystal Mobile Relation: Brother Elementary School Teacher'S Aide needed? No Secondary Emergency Contact: Edward Ruggiero Mobile Relation: Significant Other Preferred language: [employer] Teacher'S Aide needed? No PARK Ureña CNP Division of Hospitalist Medicine [facility] [1] Past Medical History: Diagnosis Date Chronic [...] Lab Units 10/22/24 1451 COLOR U Light [place]* CLARITY U Clear PH U pH 8.5* [...] PRN, Kaylin Thomas, DO, 650 mg at 10/23/24 1515 acetaminophen [...] Units, 1,200-2,000 Units, IntraCATHeter, PRN, Kaylin Thomas, heparin injection 1,200-2,000 Units, 1,200-2,000 Units, IntraCATHeter, PRN, Kaylin Thomas, heparin injection 1,200-2,000 Units, 1,200-2,000 Units, IntraCATHeter, PRN, Kaylin Thomas, , 2,000 Units at 10/24/24 1240 heparin injection 1,200-2,000 Units, 1,200-2,000 Units, IntraCATHeter, PRN, Kaylin Thomas, , 2,100 Units at 10/24/24 1240 heparin injection 5,000 Units, 5,000 Units, SubCUTAneous, 2 times per day, Kaylin Thomas DO, 5,000 Units at 10/25/242048 labetalol (Normodyne,Trandate) injection 10 mg, 10 mg, IntraVENous, q4h PRN, Kaylin Thomas DO, 10 mg at 10/26/24 112 levETIRAcetam in sodium chloride (Keppra) IVPB 500 mg, 500 mg, IntraVENous, Daily, Kaylin Thomas DO, Stopped at 10/26/24 112 meropenem (Merrem) 1,000 mg in sodium chloride [...] Sex: female Ht: Height: 162.6 cm (5' 4") TBW: Weight: 51.3 kg (113 lb 1.5 oz) BMI: Body mass index is 19.41 kg/m . Lab Results Component Value Date CREATININE 4.91 (H) 10/26/2024 CREATININE 3.49 (H) 10/25/2024 BUN 24 (H) 10/26/2024 BUN 15 10/25/2024 WBC 25.4 (H) 10/26/2024 WBC 29.9 (H) 10/25/2024 Renal: [x]HD []CRRT []PD [] CrCl ml/min (if ROLANDO, no NETWORK ADMIN) Infectious Diagnosis: sepsis (target level = mg/L) [...] 9:34 AM Won Gutiérrez PharmD (available on [employer]) Images from the original note were not included. Speech-Language Pathology SPEECH LANGUAGE PATHOLOGY [facility] Dysphagia Treatment Note Patient Name: Apoorva Gonzalez Evaluation Date: 10/26/2024 Date of : 1950 Admission Date: 10/22/2024 12:48 PM Age: 74 y.o. Room/Bed: / A Subjective Patient alert, confused and some [...] Start: 10/24/24 Expected End: 11/07/24 Therapy Time MULTI NEEDLE MACHINE OPERATOR Individual Minutes Time In: 0850 Time Out: 0912 Minutes: 22 NIRU Quiroz Images from the original note were not included. [facility] - Infectious Diseases Attending Progress [...] admissions; hospitalized from 08/14 - 08/24 at [facility] for cardiac arrest and sepsis and again from 08/26 to 09/06 at for sepsis believed to be due to an infected right thigh wound and hematoma; again at [facility] from 09/13 - 10/12/24 due [...] 153/82 -- -- 103 18 -- -- 10/24/242113 (!) 176/91 -- -- 118 22 -- -- 10/24/242112 (!) 176/91 37.1 C (98.8 F) Oral 120 15 99 % -- 10/24/242111 (!) 185/87 -- -- 117 18 -- [...] -- 1 Micro: No results for input(s): "COVID19" in the last 72 hours. 10/24/2024 0958 10/24/2024 1005 Aerobic and Anaerobic Culture with Stain [[id number]] Drainage from Arm, Left In process Component Value No component results 10/24/2024 0958 10/24/2024 1439 Culture, Aerobic Bacteria with Gram Stain [[id number]] Drainage from Arm, Left Preliminary result Component Value Culture Culture in progress P Gram Stain Result Many Polymorphonuclear leukocytes per low power field P No organisms seen P 10/24/2024 0958 10/24/2024 1005 Anaerobic culture [[id number]] Drainage from Arm, Left In process Component Value No component results 10/22/2024 2305 10/24/2024 0401 Blood culture Site #1 - Suspected Infection [[id number]] Blood, Venous Preliminary result Component Value Blood Culture No growth at 24 hours P 10/22/2024 1705 10/23/2024 2101 Blood culture Site #2 - Suspected Infection [[id number]] Blood, Venous Preliminary result Component Value Blood Culture No growth at 24 hours P 10/22/2024 1602 10/22/2024 2123 Respiratory Pathogens Panel by PCR [[id number]] Swab from Nasopharynx Final result Component Value [...] 1458 Aerobic and Anaerobic Culture with Stain [[id number]] (Abnormal) Other from Buttock, Left In process Component Value No component results 10/22/2024 1434 10/24/2024 1028 Culture, Aerobic Bacteria with Gram Stain [[id number]] (Abnormal) Other from Buttock, Left Preliminary result Component Value Culture Few skin camilo present P Many Enterobacter cloacae complex Abnormal P Gram Stain Result Rare Polymorphonuclear leukocytes per low power field Abnormal P Many Gram negative bacilli Abnormal P 10/22/2024 1434 10/22/2024 1458 Anaerobic culture [[id number]] Other from Buttock, Left In process Component Value No component results 10/22/2024 1411 10/23/2024 2101 Blood culture Site #1 - Suspected Infection [[id number]] Blood, Venous Preliminary result Component Value Blood Culture No growth at 24 hours P 10/09/2024 1541 10/14/2024 0950 Aerobic and Anaerobic Culture with Stain [[id number]] Drainage from Fistula Final result Component Value No component results 10/09/2024 1541 10/12/2024 0920 Culture, Aerobic Bacteria with Gram Stain [[id number]] Drainage from Fistula Final result Component Value Culture No growth at 72 hours Gram Stain Result Moderate Polymorphonuclear leukocytes per low power field No organisms seen 10/09/2024 1541 10/14/2024 0950 Anaerobic culture [[id number]] Drainage from Fistula Final result Component Value Culture No growth at 5 days 10/05/2024 1601 10/05/2024 1713 Respiratory culture and Stain [[id number]] (Abnormal) Sputum from Bronchus Final result Component [...] 10/05/2024 1747 Respiratory Pathogens Panel by PCR [[id number]] Swab from Nasopharynx Final result Component Value [...] Not Detected Mycoplasma pneumoniae Not Detected Lines: C HD cath, LIJ picc sites ok Radiography/Echo/Other: IR nontunneled catheter placement [[id number]] Collected: 10/23/24 111 Order Status: Completed Updated: 10/23/241117 Narrative: [facility] Name: [facility]OR[facility]ZALEZ [facility] 1950 [id number] Exam Date/Time: 10/23/2024 10:26 Procedure: IR NONTUNNELED [...] 11:17 AM EDT XR chest 1 view [[id number]] Collected: 10/22/24 154 Order Status: Completed Updated: 10/22/24 154 Narrative: Patient Name: APOORVA GNOZALEZ : 1950 Exam Date/Time: 10/22/2024 15:17 Procedure: [...] EDT IR CVC Tunneled Dialysis Cath Exchange [[id number]] Collected: 10/12/24 134 Order Status: Completed Updated: [...] using 2 percent lidocaine. A 28 cm Eleazar split tip tunneled dialysis catheter was then [...] 1:46 PM EDT IR nontunneled catheter placement [[id number]] Collected: 10/09/24 1549 Order Status: Completed Updated: [...] PM EDT CT head wo IV contrast [[id number]] Collected: 10/06/24 0314 Order Status: Completed Updated: 10/06/24326 Narrative: Patient Name: APOORVA GONZALEZ : 1950 Exam Date/Time: 10/05/2024 23:23 Procedure: CT HEAD WO IV CONTRAST Ordering Provider: CARABALLO GEORGE Reason For Exam: AMS EXAMINATION: CT HEAD WO IV CONTRAST HISTORY: AMS - - - - - [id number] - - - - change in mental [...] orbits and extracranial soft tissues are unremarkable. Inseam Trimming 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 (topogram) images: No additional findings. Impression: No CT evidence of an acute intracranial abnormality. Report Dictated on Electronically Signed By: Kev Goldstein MD Electronically Signed Date/Time: 10/06/2024 3:[address] chest abdomen pelvis with contrast [[id number]] Collected: 10/06/24 0851 Order Status: Completed Updated: 10/06/24 0904 Narrative: Patient Name: APOORVA GONZALEZ : 1950 [...] 9:03 AM EDT XR chest 1 view [[id number]] Collected: 10/05/242039 Order Status: Completed Updated: 10/05/242042 Narrative: Patient Name: APOORVA GONZALEZ : 1950 [id number] Exam Date/Time: 10/05/2024 20:36 Procedure: XR CHEST [...] 8:41 PM EDT XR chest 1 view [[id number]] Collected: 10/05/24 1449 Order Status: Completed Updated: 10/05/24 1451 Narrative: Patient Name: APOORVA GONZALEZ : 1950 [id number] Exam Date/Time: 10/05/2024 14:30 Procedure: XR CHEST [...] medical decision making. ID Will follow. Dr. Bearden covers 10/26. Please call with any further [...] original note were not included. PHYSICAL THERAPY [facility] Treatment Note Name/MRN: Apoorva Gonzalez ([id number]) Date of : 1950 Age: 74 y.o. Room/Bed: / A Visit #: 1 out of 5 [...] noted. She states she is not doing "good" but she cannot name any specific complaints. [...] 6.0* 5.6* PT/INR: No results for input(s): "PROTIME", "INR" in the last 72 hours. CARDIAC ENZYMES: No results for input(s): "TROPONINI" in the last 72 hours. Procalcitonin: No results found for: "PROCAL" COVID-19 PCR: No results for input(s): "COVID19" in the last 72 hours. Objective: Vitals: BP (!) 170/98 Pulse 104 Temp 37.1 C (98.8 F) (Oral) Resp 16 Ht 5' 4" (1.626 m) Wt 113 lb 1.5 oz [...] - dietary following Dysphagia - seen by MULTI NEEDLE MACHINE OPERATOR and now on bite sized soft diet [...] Emergency Contact: Deshawn Crystal Mobile Relation: Brother Elementary School Teacher'S Aide needed? No Secondary Emergency Contact: Edward Ruggiero Mobile Relation: Significant Other Preferred language: [employer] Teacher'S Aide needed? No Delmy Go APRN - 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 Division of Hospitalist Medicine [facility] [1] Past Medical History: Diagnosis Date Chronic kidney disease (CKD) Hemodialysis patient (CMS/HCC) (FORMERLY [facility]) Wednesday, , Wednesday History of blood transfusion 02/27/2022 Hypertension Seizure (FORMERLY [facility]) Developed seizure-like activity on 02/24 during hospital [...] from the original note were not included. [facility] Wound Care Progress Note Apoorva Gonzalez AGE: 74 y.o. GENDER: female : 1950 Subjective: HISTORY of PRESENT ILLNESS HPI Apoorva Gonzalez is a 74 y.o. female who presents for a wound care follow up. HPI: Apoorva is a 74 y.o. female who presented to the emergency department on 10/22/24 with chief complaint of AMS. Pt is resident of [place] at [facility]. Report one day of increasing weakness and AMS. She receives dialysis 5x/week Wed-Wednesday. No missed sessions. Temp 101.3F at [facility]. Hospitalized from 08/14 - 08/24 at [facility] for cardiac arrest and sepsis and again from 08/26 to 09/06 at for sepsis believed to be due to an infected right thigh wound and hematoma. Hospitalized again at [facility] from 09/13 - 10/12 due to covid-19 sepsis and electrolyte derangements. Wound Care consulted for pressure Injury coccyx and buttock" Patient resting in ICU bed at time [...] (98.8 F) (Oral) Resp 16 Ht 5' 4" (1.626 m) Wt 113 lb 1.5 oz (51.3 kg) SpO2 95% BMI 19.41 kg/m PHYSICAL EXAM General appearance: in no apparent distress, well developed and well nourished, in no respiratory distress and acyanotic, alert, cooperative, and moderately ill Skin: warm and dry Pulmonary: Normal effort, no respiratory distress, no cyanosis Sacrum extending to left buttock: 2.1t3hWPS cm. Wound bed with a mix of [...] (H) 10/25/2024 PT/INR: No results found for: "PROTIME", "INR" Prealbumin: No results found for: PREALBUMIN Albumin:No [...] to follow Recommend to follow up at [facility] Outpatient wound care center after hospital discharge. Any questions or concerns please secure chat "[facility] wound/ostomy". Thank you for the consult! I personally [...] Left 08/07/2022 COLONOSCOPY N/A 01/25/2024 Performed by Crhissy Gilman MD at [facility] ENDOSCOPY IR CVC TUNNELED DIALYSIS CATHETER PLACEMENT 02/27/2022 IR CVC TUNNELED CATHETER PLACEMENT 02/27/2022 Candis Andrade MD [facility] SPECIAL PROCEDURES IR EMBOLIZATION 01/24/2024 IR EMBOLIZATION 01/24/2024 Jovan Glynn MD [facility] SPECIAL PROCEDURES [3] Family History [...] not included. Speech-Language Pathology SPEECH LANGUAGE PATHOLOGY [facility] Dysphagia Treatment Note Patient Name: Apoorva Gonzalez Evaluation Date: 10/25/2024 Date of : 1950 Admission Date: 10/22/2024 12:48 PM Age: 74 y.o. Room/Bed: A Subjective Patient alert and oriented to self only. Seen upright in bed, after repositioning. Answers some basic questions with clear vocal quality. Follows some basic commands. No visitors at bedside. Spoke with RN Stanley who cleared pt for treatment. Current Diet: Dietary Orders (From admission, onward) Start Ordered 10/22/241851 NPO diet with enteral medications Diet effective now Comments: Please do not give oral medications if she is not awake enough to take them Question: Medications? Answer: with enteral medications 10/22/241850 Oxygen: Oxygen Therapy: None (Room air) I [...] Start: 10/24/24 Expected End: 11/07/24 Therapy Time MULTI NEEDLE MACHINE OPERATOR Individual Minutes Time In: 0836 Time Out: 0851 Minutes: 15 NIRU Quiroz Images from the original note were not included. Pharmacy Managed Vancomycin Dosing Service Progress Note Consult Date: 10/24/24 Patient Name: Apoorva Gonzalez Allergies: Patient has no known allergies. Age: 74 y.o. Sex: female Ht: Height: 162.6 cm (5' 4") TBW: Weight: 48.3 kg (106 lb 7.7 oz) BMI: Body mass index is 18.28 kg/m . Lab Results Component Value Date CREATININE 7.06 (H) 10/24/2024 CREATININE 5.78 (H) 10/23/2024 BUN 40 (H) 10/24/2024 BUN 31 (H) 10/23/2024 WBC 31.2 (HH) 10/24/2024 WBC 35.0 (HH) 10/23/2024 Renal: [x]HD []CRRT []PD [] CrCl ml/min (if ROLANDO, no NETWORK ADMIN) Infectious Diagnosis: sepsis (target level = mg/L) [...] 11:21 PM Joann Floyd PharmD (available on [employer]) [facility] PROGRESS NOTE Subjective Interval History: [...] Lab Units 10/22/24 1451 COLOR U Light [place]* CLARITY U Clear PH U pH 8.5* [...] from the original note were not included. [facility] - Infectious Diseases Attending Progress Note Subjective: Follow up for severe sepsis, encephalopathy, Infected left buttock pressure ulcer due to enterobacter cloacae complex, r/o infected left arm graft site. She was seen, found her laying on bed, sleeping, confused, making incomprehensible sounds when asked questions, fever and tachypnea decreased but remained tachycardic, she appeared lethargic and ill. She was admitted on 10/22/24 from [facility] due to fever of 101.3 F increased weakness, and altered mental status; on presentation, she was diaphoretic, had stage III pressure ulcer on left buttock, tachycardic P 120, tachypneic R 22; labs showed leukocytosis 20.2k, CXR showed bibasilar infiltrates and effusions; pip/tazo and vancomycin were given initially. She has had multiple recent hospital admissions; hospitalized from 08/14 - 08/24 at [facility] for cardiac arrest and sepsis and again from 08/26 to 09/06 at for sepsis believed to be due to an infected right thigh wound and hematoma; again at [facility] from 09/13 - 10/12/24 due [...] -- -- -- 115 23 94 % 10/23/24 1908 -- -- -- 119 (!) 28 [...] -- -- Micro: No results for input(s): "COVID19" in the last 72 hours. 10/24/2024 0958 10/24/2024 1005 Aerobic and Anaerobic Culture with Stain [[id number]] Drainage from Arm, Left In process Component Value No component results 10/24/2024 0958 10/24/2024 1439 Culture, Aerobic Bacteria with Gram Stain [[id number]] Drainage from Arm, Left Preliminary result Component Value Culture Culture in progress P Gram Stain Result Many Polymorphonuclear leukocytes per low power field P No organisms seen P 10/24/2024 0958 10/24/2024 1005 Anaerobic culture [[id number]] Drainage from Arm, Left In process Component Value No component results 10/22/2024 2305 10/24/2024 0401 Blood culture Site #1 - Suspected Infection [[id number]] Blood, Venous Preliminary result Component Value Blood Culture No growth at 24 hours P 10/22/2024 1705 10/23/2024 2101 Blood culture Site #2 - Suspected Infection [[id number]] Blood, Venous Preliminary result Component Value Blood Culture No growth at 24 hours P 10/22/2024 1602 10/22/2024 2123 Respiratory Pathogens Panel by PCR [[id number]] Swab from Nasopharynx Final result Component Value [...] 1458 Aerobic and Anaerobic Culture with Stain [[id number]] (Abnormal) Other from Buttock, Left In process Component Value No component results 10/22/2024 1434 10/24/2024 1028 Culture, Aerobic Bacteria with Gram Stain [[id number]] (Abnormal) Other from Buttock, Left Preliminary result Component Value Culture Few skin camilo present P Many Enterobacter cloacae complex Abnormal P Gram Stain Result Rare Polymorphonuclear leukocytes per low power field Abnormal P Many Gram negative bacilli Abnormal P 10/22/2024 1434 10/22/2024 1458 Anaerobic culture [[id number]] Other from Buttock, Left In process Component Value No component results 10/22/2024 1411 10/23/2024 2101 Blood culture Site #1 - Suspected Infection [[id number]] Blood, Venous Preliminary result Component Value Blood Culture No growth at 24 hours P 10/09/2024 1541 10/14/2024 0950 Aerobic and Anaerobic Culture with Stain [[id number]] Drainage from Fistula Final result Component Value No component results 10/09/2024 1541 10/12/2024 0920 Culture, Aerobic Bacteria with Gram Stain [[id number]] Drainage from Fistula Final result Component Value Culture No growth at 72 hours Gram Stain Result Moderate Polymorphonuclear leukocytes per low power field No organisms seen 10/09/2024 1541 10/14/2024 0950 Anaerobic culture [[id number]] Drainage from Fistula Final result Component Value Culture No growth at 5 days 10/05/2024 1601 10/05/2024 1713 Respiratory culture and Stain [[id number]] (Abnormal) Sputum from Bronchus Final result Component [...] 10/05/2024 1747 Respiratory Pathogens Panel by PCR [[id number]] Swab from Nasopharynx Final result Component Value [...] HD cath Radiography/Echo/Other: IR nontunneled catheter placement [[id number]] Collected: 10/23/241114 Order Status: Completed Updated: 10/23/241117 [...] 11:17 AM EDT XR chest 1 view [[id number]] Collected: 10/22/241544 Order Status: Completed Updated: 10/22/24 154 Narrative: [...] EDT IR CVC Tunneled Dialysis Cath Exchange [[id number]] Collected: 10/12/241343 Order Status: Completed Updated: 10/12/241346 [...] using 2 percent lidocaine. A 28 cm Eleazar split tip tunneled dialysis catheter was then [...] 1:46 PM EDT IR nontunneled catheter placement [[id number]] Collected: 10/09/24 1549 Order Status: Completed Updated: [...] PM EDT CT head wo IV contrast [[id number]] Collected: 10/06/24313 Order Status: Completed Updated: 10/06/24326 Narrative: Patient Name: APOORVA GONZALEZ : 1950 Exam Date/Time: 10/05/2024 23:23 Procedure: CT HEAD WO IV CONTRAST Ordering Provider: CARABALLO GEORGE Reason For Exam: AMS EXAMINATION: CT HEAD WO IV CONTRAST HISTORY: AMS - - - - - [id number] - - - - change in mental [...] orbits and extracranial soft tissues are unremarkable. Inseam Trimming 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 (topogram) images: No additional findings. Impression: No CT evidence of an acute intracranial abnormality. Report Dictated on Electronically Signed By: Kev Goldstein MD Electronically Signed Date/Time: 10/06/2024 3:[address] chest abdomen pelvis with contrast [[id number]] Collected: 10/06/24 0851 Order Status: Completed Updated: 10/06/24903 Narrative: Patient Name: APOORVA GONZALEZ : 1950 [facility]#: [id number] Exam Date/Time: 10/05/2024 23:23 Procedure: CT CHEST [...] 9:03 AM EDT XR chest 1 view [[id number]] Collected: 10/05/242039 Order Status: Completed Updated: 10/05/242042 Narrative: Patient Name: APOORVA [facility]ONZALEZ : 1950 [id number] Exam Date/Time: 10/05/2024 20:36 Procedure: XR CHEST [...] 8:41 PM EDT XR chest 1 view [[id number]] Collected: 10/05/24 1449 Order Status: Completed Updated: 10/05/24 1451 Narrative: Patient Name: APOORVA GONZALEZ : 1950 [facility]#: [id number] Exam Date/Time: 10/05/2024 14:30 Procedure: XR CHEST [...] original note were not included. PHYSICAL THERAPY [facility] Initial Evaluation Name/MRN: Apoorva Gonzalez ([id number]) Evaluation Date: 10/24/2024 Date of : 1950 Admission Date: 10/22/2024 12:48 PM Age: 74 y.o. Room/Bed: 222/ A Discharge Recommendation: [facility] Equipment Needed: No Assessment IMPRESSION: Pt admitted 10/23 with sepsis, altered mental status. She has had multiple recent hospital admissions, was at [facility] 09/13-10/12 for Afib and COVID-19, PNA. Prior to that was at [facility] with R thigh hematoma and I&D, went into cardiac arrest. Prior to these hospitalizations was IND but since has been at [facility] with plan to transition to terminal gauger supervisor care. I spoke with PT at SNF [...] a [facility] Therapy Services Physical Therapist. Goals and/or treatment [...] 01/25/2024 Performed by Chrissy Gilman MD at [facility] ENDOSCOPY IR CVC TUNNELED DIALYSIS CATHETER PLACEMENT 02/27/2022 IR CVC TUNNELED CATHETER PLACEMENT 02/27/2022 Candis Andrade MD [facility] SPECIAL PROCEDURES IR EMBOLIZATION 01/24/2024 IR EMBOLIZATION 01/24/2024 Jovan Glynn MD [facility] SPECIAL PROCEDURES Speech-Language Pathology SPEECH LANGUAGE PATHOLOGY [facility] Bedside Swallow Evaluation Patient Name: Apoorva Gonzalez Evaluation Date: 10/24/2024 Date of : 1950 Admission Date: 10/22/2024 12:48 PM Age: 74 y.o. Room/Bed: / A IMPRESSION: No s/s oropharyngeal dysphagia. No [...] required. Pt would benefit from skilled acute MULTI NEEDLE MACHINE OPERATOR services to repeat bedside swallow evaluation. Frequency: [...] Retrospective chart review revealed a history of MULTI NEEDLE MACHINE OPERATOR services as follows: speech therapy services from 09/17/2024-09/19/2024 with the ultimate recommendation of an adult regular diet with thin liquids and meds as tolerated. The following precautions included: - Upright positioning for all PO intake - Slow rate of intake - Small bites/sips Baseline Diet: Adult diet regular Current Diet: Dietary Orders (From admission, onward) Start Ordered 10/22/24 185 NPO diet with enteral medications Diet effective [...] complaint of AMS. Pt is resident of [place] at [facility]. Collateral hx provided by [facility] nurse and EMS. Report one day of increasing weakness and AMS. She receives dialysis 5x/week Wed-Wednesday. No missed sessions. Temp 101.3F at [facility]. Hospitalized from 08/14 - 08/24 at [facility] for cardiac arrest and sepsis and again from 08/26 to 09/06 at for sepsis believed to be due to an infected right thigh wound and hematoma Hospitalized again at [facility] from 09/13 - 10/12 due [...] Start: 10/24/24 Expected End: 11/07/24 Therapy Time MULTI NEEDLE MACHINE OPERATOR Individual Minutes Time In: 0816 Time Out: 0835 Minutes: 19 Levi Louis MULTI NEEDLE MACHINE OPERATOR Graduate Clinician [1] Past Medical History: Diagnosis Date Chronic kidney disease (CKD) Hemodialysis patient (CMS/HCC) (HCC) Wednesday, , Wednesday History of blood transfusion 02/27/2022 Hypertension Seizure (HCC) Developed seizure-like activity on 02/24 during hospital admission [2] Past Surgical History: Procedure Laterality Date AV FISTULA PLACEMENT Left 08/07/2022 COLONOSCOPY N/A 01/25/2024 Performed by Chrissy Gilman MD at [facility] ENDOSCOPY IR CVC TUNNELED DIALYSIS CATHETER PLACEMENT 02/27/2022 IR CVC TUNNELED CATHETER PLACEMENT 02/27/2022 Candis Andrade MD [facility] SPECIAL PROCEDURES IR EMBOLIZATION 01/24/2024 IR EMBOLIZATION 01/24/2024 MD NANDINI Wall SPECIAL PROCEDURES Cosigned by NIRU Quiroz at [...] Received IV fluid bolus, antibiotics. Admitted to [facility] for further work up. Critical care [...] Anterior;Right;Upper (Active) Date First Assessed/Time First Assessed: 09/14/24 2000 Present on Original Admission: Yes Primary Wound [...] Normal [] Scar/Lesion/Mass Inspection of teeth/lips/gums Dentition: []Apache Teeth []Dentures Lips/Gums: [x]Intact []Lesion Present Mucosa: [x][place] []Moist []Dry Neck: External Appearance Overall Appearance: [...] within last 24 hours- BMP: Recent Labs 10/22/24141010/23/24 005 NA 135* 134* K 3.1* 3.5 [...] -- -- Procal: No results for input(s): "PROCAL" in the last 72 hours. CBC: Recent Labs 10/22/24 1411 10/23/24 0052 WBC 20.2* 35.0* HGB 7.2* 6.9* HCT 22.2* 21.6* PLT 363 355 MCV 91.0 91.9 RDW 15.3* 15.5* ABGs: No results for input(s): "PHART", "UIS4XDK", "PO2ART", "LMW5BLR", "SO2ART", "D8GVIKQI" in the last 72 hours. Lactic Acid: Recent Labs 10/22/24 1411 LACTATE 1.5 INR: No results for input(s): "INR" in the last 72 hours. Cardiac Injury Profile: No results for input(s): "CKTOTAL", "CKMB", "TROPONINI" in the last 72 hours. Labs in [...] 09/26/2024 Strep Ag: No results for input(s): "STREPPNEUMO" in the last 72 hours. Imaging- No [...] given brown drainage. Would consider transfer to [facility] for evaluation by vascular surgery -NETWORK ADMIN per nephrology -Transfuse to maintain hemoglobin >7 -Hypoglycemia protocol GI Prophylaxis: none indicated DVT Prophylaxis: Heparin subcutaneous Disposition: Transfer to [facility] Critical Care Time: 38 minutes Total [...] Sex: female Ht: Height: 162.6 cm (5' 4") TBW: Weight: 48.3 kg (106 lb 7.7 [...] Dosing). Lab Results Component Value Date VANCORANDOM 17.6 10/23/2024 Give Vancomycin 500 mg x1 [...] 12:17 PM Leticia Carty RPh (available on [employer]) Images from the original note were not included. PHYSICAL THERAPY [facility] Name/MRN: Apoorva Gonzalez ([id number]) Date: 10/23/2024 Therapy eval and treat orders received. Chart review complete. Attempted session this AM at 833, pt presenting with increased lethargy and decreased responsiveness to verbal/tactile stimuli. Pt repetitively stating, "My name is Apoorva" RN made aware. RN informed planned transfer to ICU d/t ongoing sepsis. Will continue to follow and attempt as appropriate during acute medical stay. Julian Lerner PT Spiritual Care Note [facility] Palliative Care Patient Name:Apoorva Gonzalez Chief Complaint: Chief Complaint Patient presents with Altered Mental Status Pt came from intermediate. Squad was called for weakness and altered [...] and when patient is able. Debriefed: with welder manufacture team. Gretchen Admaes 10/23/24 Nutrition Assessment Type and Reason for Visit: Initial (ICU admit) Nutrition Recommendations/Plan: NPO and off unit for tunneled line placement. Recommend ADAT as deemed safe and appropriate by MULTI NEEDLE MACHINE OPERATOR Should alternative nutrition route align with goals [...] and seizure. With recent lengthy admit to [facility] 09/13-10/12/24 with confusion, generalized pain and SOB. Founds to be COVID+ on arrival. +Blood cultures for Enterobacter cloacae, antibiotics changes to vanc/cefepime and ID recommended 3 days of remdesivir. Course complicated by lethargy and AMS following iHD on 09/14 and NETWORK ADMIN later called with unresponsive episode, and hypoxia with hypoglycemia. Required levophed and transferred to ICU and started on CRRT. +Decadron and required 2u PRBC for Hgb of 5.9. CRRT weaned to iHD on 09/16; S/P Dobhoff placement on 09/16 due to encephalopathy, however on 09/17 MULTI NEEDLE MACHINE OPERATOR recommended Easy to Chew diet and dobhoff removed. Transferred from ICU to [facility] on 09/17. Palliative care consulted and supporting, as well as nephrology for ESRD. Unfortunately, she was transferred back to the ICU on 10/05/2024 due to concerns for recurrent sepsis after getting a fever and tachycardia with a lactic acidosis during dialysis. [facility] Miscellaneous Notes Care Management Progress Note Short Medical why still here: Anticipate Medical readiness for discharge today. Requested update from attending. Also updated attending that patient's Auth is good through today. Planned Discharge Disposition: [facility] [facility] approved 11/06/24 and Auth approved [...] this time. Auth obtained to return to [place] [facility] until 11/11. MD updated. RN reports continued bleeding, low BS and pain this am. Will follow. Per [facility] auth yesterday and that they started a new auth today. Received notification that [facility] has auth for her to return. Noted hgb drop and vascular sx at bedside today to examine her LUE incision, no need for intervention at this time. Facility asked when auth is good until, awaiting response. Updated notes sent to [facility] per [facility] request. Await review and response regarding ability to accept. [facility] notified. [facility] messaged to send updates to [facility] with request to start auth to return. Care Management Progress Note Short Medical why still here: s/p graft hematoma sx yesterday for bleeding issues. Vascular signed off this am, hgb stable. Planned Discharge Disposition: [facility] Facility, needs auth to return to [facility], PT asked to see today for [...] extremity with evacuation of hematoma SURGEON: Raffy Rojas MD ASSISTANTS: Maria A Khan MD (PGY-3) [...] as well as with her power of deputy prosecuting attorney and brother Deshawn. They elected to [...] at the conclusion of the case. Raffy Rojas MD Vascular Surgery Date: 11/05/2024 Location: [facility] OR Name: Apoorva Gonzalez, : 1950, Diagnosis Pre-op Diagnosis * Bleeding [R58] Post-op Diagnosis * Bleeding [R58] Procedures Evacuation of left upper extremity hematoma and control of bleeding Surgeons * Raffy Rojas - Primary Procedure Summary Anesthesia: * No anesthesia type entered * ASA: III Estimated Blood Loss: 35 mL Drains: * None in log * Staff: Laborer Carpentry Dock: Kori Khan RN Relief Scrub: Mak Adler [...] receiving Vancomycin or flouroquinolone) Cosigned by Raffy Rojas MD at 11/05/2024 3:46 PM EDT Rapid [...] Surgery resident paged via secure chat. VSS. [phone] - surgery resident here now to evaluate. Care Management Progress Note Short Medical why still here: Monitoring Hgb, has been fluctuating for several days. Planned for Dialysis today. Planned Discharge Disposition: [facility] [place] Latisha, heather, Auth Pending. [facility]. Requested update [...] repair of left brachial artery SURGEON: Raffy Rojas MD ASSISTANTS: Francisco Javier Somers MD (PGY-5) [...] closed with interrupted 2-0 nylon suture. A Fifield drain as well as a strip of [...] pulse remained palpable. Within the wound the Ti drain remains as it is a long strip of Nu-Knit hemostatic agent to be removed at a later date. Raffy Rojas MD Vascular Surgery Date: 11/02/2024 Location: [facility] OR Name: Apoorva Gonzalez, : 1950, Diagnosis Pre-op Diagnosis * Sepsis, due to unspecified organism, unspecified whether acute organ dysfunction present (HCC) [A41.9] Post-op Diagnosis * Sepsis, due to unspecified organism, unspecified whether acute organ dysfunction present (HCC) [A41.9] Procedures EXCISION OF LEFT UPPER EXTREMITY INFECTED GRAFT 00880 - [place] EXCISION INFECTED GRAFT EXTREMITY Surgeons * Raffy Rojas - Primary Procedure Summary Anesthesia: General ASA: III Estimated Blood Loss: 350 mL Drains: Open Drain Left (Active) Specimens ID Source Type Tests Collected By Collected At Frozen? Priority Lab ID A Arm, Left Tissue AEROBIC AND ANAEROBIC CULTURE WITH STAIN Raffy Rojas MD 11/02/24 0913 [id number], [id number] Description: left upper extremity AV fistula B Arm, Left Tissue AEROBIC AND ANAEROBIC CULTURE WITH STAIN Raffy Rojas MD 11/02/24 1017 [id number], [id number] Description: LEFT ARM DISTAL AV FISTULA GRAFT Staff: Laborer Carpentry Dock: Nicole Hyatt RN Relief Laborer Carpentry Dock: Alicia Foley RN Scrub Person: Tc Leonard Findings: L radial artery pulse palpable at conclusion of case. There is a ti drain in place and a long strip of cellulose clotting matrix. Complications: None; patient tolerated the procedure well. Specimens Collected: Order Name Source Comment Collection Info Order Time AEROBIC AND ANAEROBIC CULTURE WITH STAIN Arm, Left Collected By: Raffy Rojas MD 11/02/2024 9:14 AM AEROBIC AND ANAEROBIC CULTURE WITH STAIN Arm, Left Collected By: Raffy Rojas MD 11/02/2024 10:17 AM BASIC METABOLIC PANEL WITH MG REFLEX Blood, Venous 11/02/2024 11:53 AM HEMOGLOBIN AND HEMATOCRIT, BLOOD Blood, Venous 11/02/2024 11:53 AM Wound Class: Class IV: Dirty Blood Products: None Prophylactic Antibiotics: Pre-operative antibiotics were not given because the patient is on continuous antibiotics for documented preoperative infection. Cosigned by Raffy Rojas MD at 11/02/2024 2:59 PM EDT Care Management Progress Note Short Medical why still here: Patient from [facility] for vascular surgery to assess AV fistula. Patient is scheduled for surgery on Wednesday. Planned Discharge Disposition: [facility] Facility- return to [facility] once medically stable Barriers/Today we still Wait: Clinical stability Length of Stay (Days): 10 GMLOS: 4.9 Care Management Progress Note Short Medical why still here: -Pt will transfer to [facility] for vascular surgery to evaluate if new AV fistula will be needed. -Now on PO ATB -Monitoring labs -Has temporary HD cath and non-tunneled L IJ Planned Discharge Disposition: Pt is from [facility] and will return when medically ready. Pt does need auth before she can return. Pt gets HD at facility 5 days/week at facility. Barriers/Today we still Wait: Administering IV medications, Clinical stability, Symptomatic control, Vascular recommendations and Facility pre-cert area manager to follow and assist as needed. Length of Stay (Days): 9 GMLOS: 4.9 Sent updated notes to return back to [facility] per [facility] request. Await review and response regarding ability to accept. TCC notified. Care Management Progress Note Short Medical why still here: Treating sepsis with IV ATB, ID following. BP's elevated-utilizing prn BP meds. Needs fistula placement for HD. Receives HD T//WED. Has temporary HD cath in place. Will need probable transfer to [facility] for new fistula placement. Left central line to be pulled. Pt will transition to PO ATB at discharge. Planned Discharge Disposition: [facility] Back to [facility]-new auth will be needed when pt is closer to medical stability once she has fistula placement. Tasked AGRICULTURAL SCIENCES PROFESSOR to send updated clinicals to facility. Did speak with her brother Deshawn and confirmed pt will return to [facility]. Barriers/Today we still Wait: Administering IV medications, Clinical stability, Symptomatic control, new fistula Per 10/29 IM note, "if pt does not improve within 2-3 days, brother (GENET) may consider hospice". However, hospice will not be pursued at this time. area manager to follow and assist as needed. Length of Stay (Days): 8 GMLOS: 4.9 Family Communication Number Called: [phone] Name of Designated Family Plate Corrector: Deshawn Crystal HCPOA/ Brother I spoke with the individual listed above Family Plate Corrector Updated on the Following: Changed Code staus [...] PT&OT eval for auth for return to [facility]. Length of Stay (Days): 5 GMLOS: 4.9 Referral placed to return back to [facility] via [facility] per TCC request. Await review and response regarding ability to accept. TCC notified. ICU Transfer Checklist Transfer Med Reconciliation (resume home meds if able, convert to PO if able) Complete Antibiotics (name, indication, duration, convert to PO if able) Yes, addressed in today's progress note Steroid (indication, duration, convert to PO if able) None Anticipated [place] Medications (ICU initiated) or Dose Changes and [...] within 24 hours of ICU transfer, page #[phone] for clarifications. Patient was transferred out of ICU to hospitalist service. Care Management Progress Note Short Medical why still here: Re-admitted 10/22 with sepsis, AMS and buttock wound. Consults to Nephro, Palliative Care, Wound Care and PT/OT. IV Merrem 1gm Q12. Non-tunneled left internal jugular placed. AV fistula felt to be occluded. Chart review shows that patient recently discharged from [facility] to [facility]. [facility]. PT recommending SNF. Will continue to follow for ongoing needs and improvement in mentation. Planned Discharge Disposition: [facility] Facility- return to [facility]? Pending ability to accept back Barriers/Today we still Wait: Clinical stability, Symptomatic control Length of Stay (Days): 2 GMLOS: 4.9 Family Communication Number Called: [phone] Name of Designated Family Plate Corrector: Deshawn Crystal Relationship to patient: Brother Outcome: There was no answer when the number listed above was called and I left a HIPPA compliant message at the number listed above Family Plate Corrector Updated on the Following: -Planned to give non-urgent medical update and re-introduce palliative care team. -No answer. Message left with callback number. -Await callback. Signed, Lilliana Rae APRN, CNP, [facility] Palliative Care/Hospice [facility] [phone] Family Communication Number Called: n/a Name of Designated Family Plate Corrector: Deshawn Crystal Relationship to patient: Brother Outcome: I spoke with the individual listed above Family Plate Corrector Updated on the Following: -Received callback from [...] yesterday. -He is on the way from [facility] (2 hours) -Discussion around code status. DNR on file, however remains full code at this time. -Questions answered, concerns addressed, emotional support provided. -Return tomorrow. Signed, Lilliana Rae APRN, CNP, [facility] Palliative Care/Hospice [facility] [phone] 30 Day Readmission. Hospital Readmission Questionnaire not completed due to patient readmitted from skilled or rehabilitation facility. documented in this encounter [facility] 11-01-2024 Consult note Associated Order (s): IP CONSULT TO VASCULAR SURGERY Vascular Surgery Consultation Note Reason for Consult: Left AV fistula concern for clot and source of infection leading to sepsis History of Present Illness: Apoorva Gonzalez is a 74 y.o. female with PMHx hypertension, ESRD, seizure, hemodialysis (Wednesday, , Wednesday), PSH AV fistula placement (Dr. Rojas 2022) (additional history below) who presents to [facility] ED with a chief complaint of transferred from [facility] for management of left AV fistula [...] Deshawn it was decided to transfer to [facility] for vascular assessment and possible [...] AV fistula clot/infection 11/02 HD through Vas-Cath , , S Reach out to nephrology about adjusting dialysis Continue Bactrim Case will be discussed with Dr. Rojas Medical History[1] Surgical History[2] Current Medications: Continuous [...] 01/25/2024 Performed by Chrissy Gilman MD at [facility] ENDOSCOPY IR CVC TUNNELED DIALYSIS CATHETER PLACEMENT 02/27/2022 IR CVC TUNNELED CATHETER PLACEMENT 02/27/2022 Candis Andrade MD [facility] SPECIAL PROCEDURES IR EMBOLIZATION 01/24/2024 IR EMBOLIZATION 01/24/2024 Jovan Glynn MD [facility] SPECIAL PROCEDURES [3] [4] PRN [...] cancer Mother's Sister 70 Cosigned by Raffy Rojas MD at 11/01/2024 2:31 PM EDT Associated attestation - Raffy Rojas MD - 11/01/2024 2:31 PM EDT I [...] Vancomycin therapy has been discontinued by Dr Bearden on 10-26. Thank you for the consult. Pharmacy signing off for vancomycin dosing. Ronald Gould [facility], Date: 10/26/24 Time: 4:06 PM Associated Order(s): IP CONSULT TO NEPHROLOGY Apoorva Gonzalez is an 74 y.o. female. Reason for Consult Chief Complaint Patient presents with Altered Mental Status Pt came from intermediate. Squad was called for weakness and altered mental status. Pt is not diabetic. Gcs 14 due to confusion a&ox2. Pt bgl was 99. Pt fistula is in left arm . History of Present Illness Recent course is as follows per recent documentation: Hospitalized at [facility] 08/14/2024 with sudden cardiac arrest thought to be due to complications from sepsis due to a right thigh and anterior hip abscess. She underwent I&D in the OR and was treated with a 7-day course of IV Zosyn, and was discharged to a intermediate facility on 08/24/2024 with a wound VAC. She re-presented to [facility] on 08/26/2024 for increased pain of her right thigh, found to have an expanding hematoma and required 2 units of PRBCs, she was transferred to for consideration of IR embolization but eventually it was stable and did not require this procedure. Last month was admitted to [facility] with COVID, pneumonia, a.fib. She was discharged from [facility] less than 2 weeks ago. Came over to [facility] yesterday with sepsis: high fever, low BP [...] dialysis purposes only by dialysis or trained non destructive testing scientist for CRRT. Any other access must be ordered and approved by nephrology. Line to be accessed for dialysis purposes only by dialysis or trained non destructive testing scientist for CRRT. Any other access must be [...] provider. Standing Status: Standing Number of Occurrences: [id number] HYPOGLYCEMIA TREATMENT: blood glucose less than 70 [...] provider. Standing Status: Standing Number of Occurrences: [id number] Full code Standing Status: Standing Number of [...] of Unknown Etiology Inpatient consult to Infectious Diseases[place]; Sepsis - with complex history previous bacteremia with cardiac arrest Standing Status: Standing Number of Occurrences: 1 Consulting Group: [facility] [[id number]] Reason for Consult?: Sepsis - with complex history previous bacteremia with cardiac arrest Level of Consultation: Consultation and Management Did you contact the art consultant?: No When to contact consulting provider: Tomorrow Inpatient consult to Wound Prevention Standing Status: Standing Number of Occurrences: 1 Reason for Consult:: Arnol score, Prevention Inpatient consult to Palliative Care Standing Status: Standing Number of Occurrences: 1 Consulting Group: [facility] [[id number]] Reason for consult?: Assistance with clarification of goals of care Inpatient consult to Nephrology--[facility]; Dialysis Standing Status: Standing Number of Occurrences: 1 Consulting Group: [facility] [[id number]] Reason for Consult?: Dialysis Level of Consultation: Consultation and Management Did you contact the art consultant?: No When to contact consulting provider: [...] Oxygen. Standing Status: Standing Number of Occurrences: [id number] MULTI NEEDLE MACHINE OPERATOR eval and treat Standing Status: Standing Number of Occurrences: 1 Reason for MULTI NEEDLE MACHINE OPERATOR Consult?: Dysphagia (bedside swallow evaluation) MULTI NEEDLE MACHINE OPERATOR eval and treat Standing Status: Standing Number of Occurrences: 1 Reason for MULTI NEEDLE MACHINE OPERATOR Consult?: Dysphagia (bedside swallow evaluation) POCT glucose [...] History of blood transfusion 02/27/2022 Hypertension Seizure ([facility]) Developed seizure-like activity on 02/24 during hospital admission [2] Past Surgical History: Procedure Laterality Date AV FISTULA PLACEMENT Left 08/07/2022 COLONOSCOPY N/A 01/25/2024 Performed by Chrissy Gilman MD at [facility] ENDOSCOPY IR CVC TUNNELED DIALYSIS CATHETER PLACEMENT 02/27/2022 IR CVC TUNNELED CATHETER PLACEMENT 02/27/2022 Candis Andrade MD [facility] SPECIAL PROCEDURES IR EMBOLIZATION 01/24/2024 IR EMBOLIZATION 01/24/2024 Jovan Glynn MD [facility] SPECIAL PROCEDURES [3] Family History [...] to encephalopathy. -legal surrogate decision maker is HCPOA, Brother Deshawn Crystal ( ) Alternate is s/o Edward Ruggiero [phone]) -see subjective for details of conversation -goals of care include: 1) continue infectious workup 2)maintain full code 3)continue goals of care conversations -Palliative care saw last admission while at [facility]-->spouse has , daughter has . Noted that emergency contacts appear to be grandsons-->Mayur and Sharad (both above 18 yo), Brother-->Deshawn Crystal and s/o Edward Ruggiero. -HCPOA documented to have been filled out at facility recently-->copy was emailed to me today from [facility]. Faxed to medical records to be scanned into chart. Sepsis -Recent admission at [facility] for sepsis, Cdiff. -Wound cultures [...] discussion with brother today re: baseline function. -MULTI NEEDLE MACHINE OPERATOR consulted, unable to address today 2/2 mentation continuing to be poor. -Monitor, remains NPO for now with encephalopathy. Debility Wounds -ongoing, 2/2 chronically ill and long hospitalizations recently. -This is her 5th admission over the last year. -Noted WCB at baseline at facility. -PT/OT when able. -Likely return to facility at tx pending clinical course. -Monitor. Hx Seizures -Keppra 500 mg IVPB ordered. -Monitor. Hx ESRD -Dialysis -Noted that tunneled like previously inserted last admission ([facility]-->10-13) -Nephrology consulted -Creatinine Cl 6.5 mL/min -Avoid nephrotoxic medications. -Renally dose medications -Last dialysis yesterday per brother. Hx CP arrest --->while at [facility]. Palliative Care Encounter -Code Status: [...] She had a recent long admission at [facility] for about a month, COVID-19, [...] detailed in the note above. Lilliana Rae, TOOL ROOM ATTENDANT - 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 Palliative Care Assessments: Goals of care: Continue Current Management, Live Longer, extend life as much as possible, Strengthening Relationships, and Support for Family/Caregiver Advanced Directives: Health Care Power of It Admin, DNR Functional Assessment: PPS 50% mainly sit/lie; can't do any work/extensive disease; considerable assistance; normal or reduced intake; full LOC or confusion Prognosis: depends upon goals of care Spiritual Assessment: No spiritual distress identified Bereavement and Grief: To Be Determined PDMP/OARRS Reviewed: Yes-reviewed Social history: Marital status: Children: one child, . Living status: intermediate Work history: n/a status: No Latter-Day erma: None ROS: See palliative care ROS/ESAS below; Detail ROS unable to be obtained due to patient's mental status Powersite Symptom Assessment Score Powersite Score Pain Score (if non-verbal, add .FLACC [...] Total Score: 0 Family Meeting: Participants: Deshawn arredonod Family meeting was held to discuss:Diagnosis and [...] at this time Transition Note Initiated: yes PARK Prajapati CNP [1] Past Medical History: Diagnosis Date Chronic kidney disease (CKD) Hemodialysis patient (CMS/HCC) (HCC) Wednesday, , Wednesday History of blood transfusion 02/27/2022 Hypertension Seizure (HCC) Developed seizure-like activity on 02/24 during hospital admission [2] Past Surgical History: Procedure Laterality Date AV FISTULA PLACEMENT Left 08/07/2022 COLONOSCOPY N/A 01/25/2024 Performed by Chrissy Gilman MD at [facility] ENDOSCOPY IR CVC TUNNELED DIALYSIS CATHETER PLACEMENT 02/27/2022 IR CVC TUNNELED CATHETER PLACEMENT 02/27/2022 Candis Andrade MD [facility] SPECIAL PROCEDURES IR EMBOLIZATION 01/24/2024 IR EMBOLIZATION 01/24/2024 Jovan Glynn MD [facility] SPECIAL PROCEDURES [3] Family History [...] Received IV fluid bolus, antibiotics. Admitted to [facility] for further work up. This morning [...] Violence: Not At Risk (08/31/2024) Received from [facility] Humiliation, Afraid, Rape, and Kick questionnaire [...] by mouth Nightly. 03/02/22 10/22/24 Yes Evan Joshua APRN - 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 B complex-vitamin C-folic acid (Nephro-Coleen) 0.8 MG [...] mouth daily. 03/02/22 10/22/24 Yes Evan Joshua, TOOL ROOM ATTENDANT - 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 meclizine (Antivert) 25 MG tablet Take 1 [...] daily for 8 days. 10/12/24 10/20/24 John Myaes DO linezolid (Zyvox) 600 MG tablet Take [...] Normal [] Scar/Lesion/Mass Inspection of teeth/lips/gums Dentition: []Apache Teeth []Dentures Lips/Gums: [x]Intact []Lesion Present Mucosa: [][place] []Moist []Dry Neck: External Appearance Overall Appearance: [...] 24 hours- BMP: Recent Labs 10/22/24 14110/23/24 0052 NA 135* 134* K 3.1* 3.5 [...] -- -- Procal: No results for input(s): "PROCAL" in the last 72 hours. CBC: Recent Labs 10/22/24 14110/23/24 0052 WBC 20.2* 35.0* HGB 7.2* 6.9* HCT 22.2* 21.6* PLT 363 355 MCV 91.0 91.9 RDW 15.3* 15.5* ABGs: No results for input(s): "PHART", "UAM5OYT", "PO2ART", "QUM8JRE", "SO2ART", "R0AEGVRT" in the last 72 hours. Lactic Acid: Recent Labs 10/22/24 1411 LACTATE 1.5 INR: No results for input(s): "INR" in the last 72 hours. Cardiac Injury Profile: No results for input(s): "CKTOTAL", "CKMB", "TROPONINI" in the last 72 hours. Labs in [...] 09/26/2024 Strep Ag: No results for input(s): "STREPPNEUMO" in the last 72 hours. Imaging- No [...] 01/25/2024 Performed by Chrissy Gilman MD at [facility] ENDOSCOPY IR CVC TUNNELED DIALYSIS CATHETER PLACEMENT 02/27/2022 IR CVC TUNNELED CATHETER PLACEMENT 02/27/2022 Candis Andrade MD [facility] SPECIAL PROCEDURES IR EMBOLIZATION 01/24/2024 IR EMBOLIZATION 01/24/2024 Jovan Glynn MD [facility] SPECIAL PROCEDURES [3] Family History Problem Relation Name Age of Onset Dementia Mother Stroke Father Prostate cancer Brother 69 Breast cancer Cousin 32 Stomach cancer Mother's Sister 70 [4] No Known Allergies Associated Order(s): IP CONSULT TO INFECTIOUS DISEASES Images from the original note were not included. [facility] - Infectious Diseases Attending Consult Note Reason for Consult: Sepsis History of Present Illness: 74 y/o female was admitted on 10/22/24 from [facility] due to fever of 101.3 F increased [...] admissions; hospitalized from 08/14 - 08/24 at [facility] for cardiac arrest and sepsis and again from 08/26 to 09/06 at for sepsis believed to be due to an infected right thigh wound and hematoma; again at [facility] from 09/13 - 10/12/24 due [...] Violence: Not At Risk (08/31/2024) Received from [facility] Humiliation, Afraid, Rape, and Kick questionnaire [...] Motor: Weakness present. Labs: Recent Labs 10/22/24 14110/23/24 0052 NA 135* 134* K 3.1* 3.5 [...] 16.9* -- Micro: No results for input(s): "COVID19" in the last 72 hours. 10/22/2024 2305 10/23/2024 0501 Blood culture Site #1 - Suspected Infection [[id number]] Blood, Venous Preliminary result Component Value Blood Culture Blood culture incubation started P 10/22/2024 1705 10/22/2024 2201 Blood culture Site #2 - Suspected Infection [[id number]] Blood, Venous Preliminary result Component Value Blood Culture Blood culture incubation started P 10/22/2024 1602 10/22/2024 2123 Respiratory Pathogens Panel by PCR [[id number]] Swab from Nasopharynx Final result Component Value [...] 1458 Aerobic and Anaerobic Culture with Stain [[id number]] (Abnormal) Other from Buttock, Left In process Component Value No component results 10/22/2024 1434 10/22/2024 2148 Culture, Aerobic Bacteria with Gram Stain [[id number]] (Abnormal) Other from Buttock, Left Preliminary result Component Value Culture Culture in progress P Gram Stain Result Rare Polymorphonuclear leukocytes per low power field Abnormal P Many Gram negative bacilli Abnormal P 10/22/2024 1434 10/22/2024 1458 Anaerobic culture [[id number]] Other from Buttock, Left In process Component Value No component results 10/22/2024 1411 10/22/2024 2201 Blood culture Site #1 - Suspected Infection [[id number]] Blood, Venous Preliminary result Component Value Blood Culture Blood culture incubation started P Lines: Tunneled HD cath on 10/12/24 Radiography/Echo/Other: Procedure Component Value Units Date/Time XR chest 1 view [[id number]] Collected: 10/22/24 154 Order Status: Completed Updated: 10/22/241546 Narrative: Patient [...] EDT IR CVC Tunneled Dialysis Cath Exchange [[id number]] Collected: 10/12/24 134 Order Status: Completed Updated: 10/12/241346 Narrative: Patient Name: APOORVA GONZALEZ [facility] 1950 [id number] Exam Date/Time: 10/12/2024 11:51 Procedure: IR CVC [...] using 2 percent lidocaine. A 28 cm Eleazar split tip tunneled dialysis catheter was then [...] History of blood transfusion 02/27/2022 Hypertension Seizure ([facility]) Developed seizure-like activity on 02/24 during hospital admission [2] Past Surgical History: Procedure Laterality Date AV FISTULA PLACEMENT Left 08/07/2022 COLONOSCOPY N/A 01/25/2024 Performed by Chrissy Gilman MD at [facility] ENDOSCOPY IR CVC TUNNELED DIALYSIS CATHETER PLACEMENT 02/27/2022 IR CVC TUNNELED CATHETER PLACEMENT 02/27/2022 Candis Andrade MD [facility] SPECIAL PROCEDURES IR EMBOLIZATION 01/24/2024 IR EMBOLIZATION 01/24/2024 Jovan Glynn MD [facility] SPECIAL PROCEDURES [3] Current Facility-Administered [...] chlorhexidine (Hibiclens) 4 % solution Topical Daily Lnoi Zambrano MD heparin injection 1,200-2,000 Units 1,200-2,000 Units IntraCATHeter PRN Loni Zambrano MD heparin injection 1,200-2,000 Units 1,200-2,000 Units IntraCATHeter PRN Loni Zambrano MD heparin injection 1,200-2,000 Units 1,200-2,000 Units IntraCATHeter PRN Loni Zambrano MD heparin injection 1,200-2,000 Units 1,200-2,000 Units IntraCATHeter PRN Loni Zambrano MD heparin injection 5,000 Units 5,000 Units SubCUTAneous 2 times per day Loni Zambrano MD 5,000 Units at 10/22/24 2331 levETIRAcetam in sodium chloride (Keppra) IVPB 500 mg 500 mg IntraVENous Daily Jalen MD Agatha Stopped at 10/22/24 2335 ondansetron ODT (Zofran-ODT) [...] from the original note were not included. [facility] Wound Care CONSULT Note Apoorva Gonzalez AGE: 74 y.o. GENDER: female : 1950 Subjective: HISTORY of PRESENT ILLNESS HPI Apoorva Gonzalez is a 74 y.o. female who presents for a wound consult. HPI: Apoorva is a 74 y.o. female who presented to the emergency department on 10/22/24 with chief complaint of AMS. Pt is resident of [place] at [facility]. Report one day of increasing weakness and AMS. She receives dialysis 5x/week Wed-Wednesday. No missed sessions. Temp 101.3F at [facility]. Hospitalized from 08/14 - 08/24 at [facility] for cardiac arrest and sepsis and again from 08/26 to 09/06 at for sepsis believed to be due to an infected right thigh wound and hematoma. Hospitalized again at [facility] from 09/13 - 10/12 due to covid-19 sepsis and electrolyte derangements. Wound Care consulted for pressure Injury coccyx and buttock" PAST MEDICAL HISTORY Medical History[1] PAST SURGICAL HISTORY Surgical History[2] FAMILY HISTORY Family History[3] SOCIAL HISTORY Social History[4] ALLERGIES Allergies[5] MEDICATIONS Medications Ordered Prior to Encounter[6] REVIEW OF SYSTEMS Pertinent items are noted in HPI. Objective: BP 126/75 Pulse (!) 123 Temp 37.8 C (100 F) (Axillary) Resp 18 Ht 5' 4" (1.626 m) Wt 106 lb 7.7 oz (48.3 kg) SpO2 98% BMI 18.28 kg/m PHYSICAL EXAM General appearance: in no apparent distress, well developed and well nourished, in no respiratory distress and acyanotic, alert, cooperative, and moderately ill Skin: warm and dry Pulmonary: Normal effort, no respiratory distress, no cyanosis Sacrum extending to left buttock: 2.3d1vNQU cm. Wound bed with a mix of [...] (H) 10/23/2024 PT/INR: No results found for: "PROTIME", "INR" Prealbumin: No results found for: PREALBUMIN Albumin:No [...] to follow Recommend to follow up at [facility] after hospital discharge. Any questions or concerns please secure chat "[facility] wound/ostomy". Thank you for the consult! I personally [...] 01/25/2024 Performed by Chrissy Gilman MD at [facility] ENDOSCOPY IR CVC TUNNELED DIALYSIS CATHETER PLACEMENT 02/27/2022 IR CVC TUNNELED CATHETER PLACEMENT 02/27/2022 Candis Andrade MD [facility] SPECIAL PROCEDURES IR EMBOLIZATION 01/24/2024 IR EMBOLIZATION 01/24/2024 Jovan Glynn MD [facility] SPECIAL PROCEDURES [3] Family History [...] Height as of 09/26/24: 1.626 m (5' 4"). Weight as of this encounter: 48.3 kg [...] creatinine, and vancomycin levels interfaced automatically to [employer] and data has been analyzed and interpreted. [...] via Secure Chat documented in this encounter [facility] 10-31-2024 Hospital Discharge instructions Jessica aL RN - 10/31/2024 2:42 PM EDT Images from the original note were not included. 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 No Secondary Emergency Contact: Edward Ruggiero Mobile Relation: Significant Other Preferred language: [employer] Teacher'S Aide needed? No Past Surgical History: Past Surgical History: Procedure Laterality Date AV FISTULA PLACEMENT Left 08/07/2022 COLONOSCOPY N/A 01/25/2024 Performed by Chrissy Gilman MD at [facility] ENDOSCOPY IR CVC TUNNELED DIALYSIS CATHETER PLACEMENT 02/27/2022 IR CVC TUNNELED CATHETER PLACEMENT 02/27/2022 Candis Andrade MD [facility] SPECIAL PROCEDURES IR EMBOLIZATION 01/24/2024 IR EMBOLIZATION 01/24/2024 Jovan Glynn MD [facility] SPECIAL PROCEDURES Immunization History: Immunization [...] (Temporal) Resp 16 Ht 1.626 m (5' 4") Wt 51 kg (112 lb 7 oz) [...] Total assistance Toileting Total assistance Feeding Independent Gamb Cutter Minimal assistance Med Delivery yes Wound Care Documentation and Therapy: Wound/Incision 09/14/24 Incision Leg Anterior;Right;Upper (Active) Number of days: 46 Wound/Incision 09/26/24 Pressure Injury Sacrum (Active) Site Assessment [place];Yellow 10/30/24 1002 Aminah-Wound Assessment Clean;Intact 10/30/24 2226 Wound Length (cm) 2.4 cm 10/23/24 0830 Wound Width (cm) 3 cm 10/23/24 0830 Wound Surface Area (cm^2) 5.65 cm^2 10/23/24 0830 Odor None 10/29/24 1058 Drainage Amount Small 10/30/24 1002 Treatments Site care;Pharmaceutical agent 10/30/24 1002 Primary Dressing Foam 10/30/242225 Dressing Status Clean, dry & intact 10/30/24 222 Number of days: 34 Elimination: Continence: Bowel: [...] Date: 10/22/24 Discharging to Facility/ Agency Name: [facility] Address: [address] [place] [address] Fax: Dialysis Facility (if applicable) Name:[facility] Address:[address] [place] [address] Dialysis Schedule:TThSa Fax: Supervisor Personnel Clerks/Medical Charge Entry Specialist signature: ICIAN SECTION Name: Apoorva Gonzalez Prognosis: [...] to a nursing facility directly from an [place] hospital or a unit of a hospital that is not operated by or licensed by [facility] under section 5119.14 or 5160-3-15.1 5 The individual requires the level of services provided by a nursing facility for the condition for which he or she was treated in the hospital and, Physician Certification: I certify the above information and transfer of Apoorva Gonzalez is necessary for the continuing treatment of the diagnosis listed and that she requires intermediate facility for less than 30 days. Update [...] intervention. PHYSICIAN SIGNATURE: documented in this encounter [facility] 10-22-2024 Procedure note Pressfitter arrived at pt room to draw cultures from tunnel dialysis line. While wearing proper ppe and using aseptic technique. Blood drawn and put into aerobic and anerobic culture bottles. Cvc was heparinized and capped, dressing changed documented in this encounter [facility] 10-22-2024 History and physical note Attending History [...] respite facility but she resides at in [facility], typically uses a wheel chair to get around. HC POA is partner = Edward and [...] Recently admitted from 09/13 to 10/12 at [facility] for new onset atrial fibrillation complicated [...] recent infected hematoma which was I&D at [facility] and treated with antibiotics from 08/14-08/24 in which she went under cardiac arrest which was thought to be due to the right thigh and anterior hip abscess - which was drained and she left with wound vac. Returned on 08/26 for expanding hematoma to the right thigh requiring 2 units of pRBC, and transferred to [facility] for IR emobolization of thigh hematoma, but [...] Date Chronic kidney disease (CKD) Hemodialysis patient ([facility]/HCC) (HCC) Wednesday, , Wednesday History of blood transfusion 02/27/2022 Hypertension Seizure ([facility]) Developed seizure-like activity on 02/24 during hospital [...] Resource Strain: Low Risk (08/31/2024) Received from [facility] Overall Financial Resource Strain (CARDIA) Difficulty of Paying Living Expenses: Not hard at all Food Insecurity: No Food Insecurity (08/31/2024) Received from [facility] Hunger Vital Sign Worried About Running Out of Food in the Last Year: Never true Ran Out of Food in the Last Year: Never true Transportation Needs: No Transportation Needs (08/31/2024) Received from [facility] PRAPARE - Transportation Lack of Transportation (Medical): No Lack of Transportation (Non-Medical): No Physical Activity: Not on file Stress: Not on file Social Connections: Not on file Intimate Partner Violence: Not At Risk (08/31/2024) Received from [facility] Humiliation, Afraid, Rape, and Kick questionnaire Fear of Current or Ex-Partner: No Emotionally Abused: No Physically Abused: No Sexually Abused: No Housing Stability: Low Risk (08/31/2024) Received from [facility] Housing Stability Vital Sign Unable to [...] 15.3* PLT 363 BMP: Recent Labs 10/22/24 1411 NA 135* K 3.1* CL 93* CO2 26 BUN 28* CREATININE 5.36* GLUCOSE 85 CALCIUM 8.2* ANIONGAP 16* LIVER PROFILE: Recent Labs 10/22/24 1411 AST 37* ALT <6 BILITOT 0.6 ALKPHOS 161* PROT 6.1* PT/INR: No results for input(s): "PROTIME", "INR" in the last 72 hours. CARDIAC ENZYMES: No results for input(s): "TROPONINI" in the last 72 hours. Procalcitonin: No results found for: "PROCAL" Urine Culture: No results found for this or any previous visit. COVID-19 PCR: No results for input(s): "COVID19" in the last 72 hours. 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 Patient s cognitive capacity: confused Code Status: [X] [FULL CODE - Continue all advanced life support: CPR,intubation,invasive procedures] [_] [DNR-CCA - DO NOT do CPR, intubation] [_] [DNR-QUICK TECHNICIAN - Comfort care only] [_] DNR [...] and/or family/surrogate. Loni Zambrano MD Division of Hospitalist Medicine [facility] [1] Past Surgical History: Procedure Laterality Date AV FISTULA PLACEMENT Left 08/07/2022 COLONOSCOPY N/A 01/25/2024 Performed by Chrissy Gilman MD at [facility] ENDOSCOPY IR CVC TUNNELED DIALYSIS CATHETER PLACEMENT 02/27/2022 IR CVC TUNNELED CATHETER PLACEMENT 02/27/2022 Candis Andrade MD [facility] SPECIAL PROCEDURES IR EMBOLIZATION 01/24/2024 IR EMBOLIZATION 01/24/2024 Jovan Glynn MD [facility] SPECIAL PROCEDURES [2] Family History Problem Relation Name Age of Onset Dementia Mother Stroke Father Prostate cancer Brother 69 Breast cancer Cousin 32 Stomach cancer Mother's Sister 70 [3] Current Facility-Administered Medications: sodium chloride 0.9 % infusion, 5-250 mL/hr, IntraVENous, PRN, Tuan Montoya, DO sodium chloride 0.9% (NS) flush 5-40 mL, 5-40 mL, IntraVENous, 2 times per day, Tuan Garsiay, DO sodium chloride 0.9% (NS) flush 5-40 mL, 5-40 mL, IntraVENous, PRN, Tuan Montoya, DO vancomycin (Vancocin) 1,000 mg in sodium chloride 0.9 % 250 mL IVPB, 1,000 mg, IntraVENous, q24h, Tuan Montoya, DO Current Outpatient Medications: atorvastatin (Lipitor) 40 [...] No Known Allergies documented in this encounter [facility] 10-22-2024 Emergency department Note USIV stopped working, unable to start vanc at this time. NETWORK ADMIN RN called for USIV. Provider notified. Pt's grandson Mayur (information in contacts) would like contacted if pt's status changes. US IV placed by Dr Montoya, one set of cultures obtained from that line. DO attempted second US for second set of blood cultures without success and states we will just send one set of blood cultures. Medic unable to obtain US IV. editor city notified and is to attempt. Unable to [...] with Altered Mental Status Pt came from intermediate. Squad was called for weakness and altered [...] complaint of AMS. Pt is resident of [place] at [facility]. Collateral hx provided by [facility] nurse and EMS. Report one day of increasing weakness and AMS. She receives dialysis 5x/week Mon-Wednesday. No missed sessions. Temp 101.3F at [facility]. Hospitalized from 08/14 - 08/24 at [facility] for cardiac arrest and sepsis and again from 08/26 to 09/06 at for sepsis believed to be due to an infected right thigh wound and hematoma Hospitalized again at [facility] from 09/13 - 10/12 due [...] Response: Confused Best Motor Response: Localizes pain [place] Coma Scale Score: 12 Objective: PHYSICAL EXAM [...] - Abnormal Result Value Color, Urine Light [place] (*) Clarity, Urine Clear pH, Urine 8.5 [...] - Normal Glucose 99 Narrative: Performed by: [facility], [address] [place] [id number] CLIA ID: [id number] BLOOD CULTURE BLOOD CULTURE AEROBIC AND ANAEROBIC CULTURE WITH STAIN Narrative: The following orders were created for panel order Aerobic and Anaerobic Culture with Stain. Procedure Abnormality Status --------- ------ Culture, Aerobic Bacteri...[[id number]] In process Anaerobic culture[[id number]] In process Please view results for these [...] status type Buttock wound, left, initial encounter SEP-1 CORE MEASURE DATA SIRS Criteria Sepsis [...] Mini-Bag Plus (0 mg IntraVENous Stopped 10/22/24 152) Prescription drugs considered: PROCEDURES: Unless otherwise noted [...] Date Chronic kidney disease (CKD) Hemodialysis patient ([facility]/HCC) (HCC) Wednesday, , Wednesday History of blood transfusion 02/27/2022 Hypertension Seizure ([facility]) Developed seizure-like activity on 02/24 during hospital admission [2] Past Surgical History: Procedure Laterality Date AV FISTULA PLACEMENT Left 08/07/2022 COLONOSCOPY N/A 01/25/2024 Performed by Chrissy Gilman MD at [facility] ENDOSCOPY IR CVC TUNNELED DIALYSIS CATHETER PLACEMENT 02/27/2022 IR CVC TUNNELED CATHETER PLACEMENT 02/27/2022 Candis Andrade MD [facility] SPECIAL PROCEDURES IR EMBOLIZATION 01/24/2024 IR EMBOLIZATION 01/24/2024 Jovan Glynn MD [facility] SPECIAL PROCEDURES [3] Family History [...] Resource Strain: Low Risk (08/31/2024) Received from [facility] Overall Financial Resource Strain (CARDIA) Difficulty of Paying Living Expenses: Not hard at all Food Insecurity: No Food Insecurity (08/31/2024) Received from [facility] Hunger Vital Sign Worried About Running Out of Food in the Last Year: Never true Ran Out of Food in the Last Year: Never true Transportation Needs: No Transportation Needs (08/31/2024) Received from [facility] PRAPARE - Transportation Lack of Transportation (Medical): No Lack of Transportation (Non-Medical): No Intimate Partner Violence: Not At Risk (08/31/2024) Received from [facility] Humiliation, Afraid, Rape, and Kick questionnaire Fear of Current or Ex-Partner: No Emotionally Abused: No Physically Abused: No Sexually Abused: No Housing Stability: Low Risk (08/31/2024) Received from [facility] Housing Stability Vital Sign Unable to Pay for Housing in the Last Year: No Number of Times Moved in the Last Year: 0 Homeless in the Last Year: No Tuan Montoya DO Resident 10/22/24 1636 Cosigned by Veronica Abebe MD at 10/23/2024 3:09 PM EDT Emergency Department Encounter [facility] ED Patient: Apoorva Gonzalez : [...] to the emergency department with AMS from intermediate. Pt is a poor historian. Focused exam: [...] dictating provider for clarification.) Veronica Abebe MD [facility] Veronica Abebe MD 10/22/24 1604 documented in this encounter [facility] 09-06-2024 Plan of care note Problem: Pain [...] include Patient will remain safe throughout shift [facility] 09-06-2024 Miscellaneous Notes Problem: Pain - [...] and HTN who presented as transfer from [facility] for IR embolization of thigh hematoma. Note patient had a recent hospitalization at [facility] on 08/14 with sudden cardiac arrest, though to be sepsis due to R thigh and anterior hip abscess She underwent CT guided aspiration then I&D in OR, treated with IV Zosyn x7 days then discharged 08/24 to SNF with wound vac. Cultures reported to be negative. She re-presented to [facility] on 08/26 for increased pain [...] incrementation to 8.1. Patient was transferred to [facility] for IF embolization of thigh hematoma. IR [...] of 08/30, with plan for transfer to [facility] for potential embolization. The patient arrived to [facility] around 0001 08/31/24. Initial Hb was 7.0, [...] injury during shift Transfer Acceptance Note - [facility] Medicine Receiving Facility: [facility] Accepting Physician: Carine Mejia DO Date/Time: 7:54 AM Patient: Apoorva Gonzalez Sending Facility: [facility] Reason for Transfer: Evaluation and management of acutely bleeding R anterior thigh hematoma requiring IR embolization (not available at sending facility). Dr. Clarke Mckeon from IR at [facility] was contacted and agreed with transfer specifically to [facility] for embolization. Pertinent History: Presentation: Presented from SNF to [facility] ED with increased right lower extremity pain and swelling, concern for hematoma, ortho and vascular consulted. CTA of lower extremity done showing contrast pooling in hematoma with active bleeding. Vascular recommended urgent transfer for IR embolization. Past Medical History: ESRD on HD (T, Th, Wed), HTN, HLD, chronic anemia. Recent hospitalization at [facility] on 08/14 with sudden cardiac [...] RA Disposition: Accepted to General Medicine at [facility] for: Management of acute R anterior thigh hematoma with acute blood loss anemia (on chronic anemia) with planned IR embolization at [facility]. Coordination of multidisciplinary evaluation (e.g., IR, vascular surgery, nephrology) Note: Transfer center and sending facility advised to re-contact accepting physician if any clinical deterioration occurs prior to arrival. Hospitalist [facility] documented in this encounter [facility] Work Phone: 09-06-2024 History of Present illness Narrative Occupational Therapy OT Treatment Patient Name: Apoorva Gonzalez Department: [facility] 60 Room: 60/6013-A Today's Date: 09/06/2024 Time Calculation Start Time: [...] admitted on 08/30 as a transfer from [facility] due to right anterior thigh hematoma. Determined [...] A to elva, educated on use of power hammer operator for LE dressing, extended time to [...] 1: bed mobility, transfers, functional mobility Outcome Measures:[facility] Daily Activity Putting on and taking off [...] States make urine Musculoskeletal: Comments: Rt thigh utcjzyoyf-obvkfnbi-vplhidih intact Ble without edema Skin: General: Skin is warm and dry. Neurological: General: No focal deficit present. Mental Status: She is alert and oriented to person, place, and time. Psychiatric: Mood and Affect: Mood normal. Behavior: Behavior normal. Last Recorded Vitals Blood pressure 154/69, pulse 82, temperature 36.6 C (97.9 F), resp. rate 15, height 1.63 m (5' 4.17"), weight 51.8 kg (114 lb 3.2 oz), [...] cont to monitor [facility]: lt fist- no issues - able [...] inpatient and to follow with the outpatient biztalk architect at discharge MAYANK Longo 09/06/24 1311 Discharge Planning Home or Post Acute Services In home services Expected Discharge Disposition Home H Does the patient need discharge transport arranged? No Insurance denied auth to SNF. Patient agreeable to home care. MD will place home care orders. Updated flow sheets sent to patient dialysis center ([facility]). Dialysis center informed patient will return tomorrow. Brother will provide transportation home and to dialysis tomorrow. [facility] [employer] can accept. They are home care services that are offered through her insurance. Final home care orders and AVS sent to agency. Ann Sheridan RN, BSN Transitional Golf Range Attendant Name: Apoorva Gonzalez Age: 74 y.o. Date [...] abscess, s/p I&D and antibiotics who presents [facility] on 08/30 for R thigh hematoma. IR consulted and not recommending IR embolization. Serial H/H. #. Rt Thigh hematoma s/p abscess drainage #Right anterior thigh cellulitis and hematoma - Recent hospitalization at [facility] on 08/14 with sudden cardiac [...] cw lynne 10 on non dialysis days #acute on [...] Acute Services Post acute facilities (Rehab/SNF/etc) ([facility]) Type of Post Acute Facility Services [facility] Expected Discharge Disposition SNF Does the patient need discharge transport arranged? Yes RoundTrip coordination needed? Yes Precert is still pending to [facility]. Confirmed with facility that they offer dialysis onsite. Anticipating discharge today vs tomorrow. Will continue to follow for updates. Ann Sheridan RN, BSN Transitional Golf Range Attendant Renal Staff HD Note I visited and [...] mouth 3 (three) times a week. Wed/wed/wed thiamine (Vitamin B-1) 250 mg tablet Other Yes No Sig: Take 1 tablet (250 mg) by mouth once daily. Facility-Administered Medications: None Current Medications[2] Images: ASSESSMENT AND PLAN: -Continue treatment per submitted orders Brandt Aaron MD Senior Attending Physician Director of Onco-Nephrology Program Division of Nephrology & Hypertension [facility] [1] PRN medications: HYDROmorphone, meclizine [2] Current [...] Daily Cory Montelongo MD 125 mcg at 09/04/24 08 epoetin miller (Epogen) injection 10,000 Units 10,000 Units intravenous Once per day on Wednesday Cristina Stack APRN-TAMIR HYDROmorphone (Dilaudid) tablet 1 mg 1 mg oral q6h PRN Arsenio Lombardo MD 1 mg at 09/05/24 0526 meclizine (Antivert) tablet 25 mg 25 mg oral TID PRN Cory Montelongo MD sodium zirconium cyclosilicate (Lokelma) packet 10 g 10 g oral Once per day on Wednesday Teodoro Toscano MD 10 g at 09/04/24 08 thiamine (Vitamin B-1) tablet 100 mg 100 mg oral Daily Cory Montelongo MD 100 mg at 09/04/24 0821 vitamin B complex-vitamin C-folic acid (Nephrocaps) capsule 1 capsule 1 capsule oral Daily Teodoro Toscano MD 1 capsule at 09/04/24 0821 Apoorva Gonzalez is a 74 y.o. female [...] States make urine Musculoskeletal: Comments: Rt thigh svezgieeg-epjygqfo-bsobllmp intact Ble without edema Skin: General: Skin is warm and dry. Neurological: General: No focal deficit present. Mental Status: She is alert and oriented to person, place, and time. Psychiatric: Mood and Affect: Mood normal. Behavior: Behavior normal. Last Recorded Vitals Blood pressure 152/64, pulse 97, temperature 36.9 C (98.4 F), resp. rate 16, height 1.63 m (5' 4.17"), weight 51.8 kg (114 lb 3.2 oz), [...] electrolytes . K+=4.1 Outpatient Dialysis schedule: TTS [facility] Access: lt fist- no issues - able [...] inpatient and to follow with the outpatient biztalk architect at discharge MAYANK Longo 09/04/24 Transitional Golf Range Attendant Notes: Transitional Care Coordination Progress Note: Patient discussed during interdisciplinary rounds. Team members present: MD and TCC Plan per Medical/Surgical team: PT/OT is recommending moderate intensity therapy. Patient is agreeable and would like to return to [facility]. Referral placed with facility. Will continue to follow for updates. 1444 Updates: precert started by [facility]. Will continue to follow for updates. Payor: [...] admitted on 08/30 as a transfer from [facility] due to right anterior thigh hematoma. Determined [...] ADLS and IADLs. Grandson's are available to pecan picker groceries for her. States she can [...] Tinetti performed Tinetti score: balance: 9/16, gait: 09/14. Combined score indicating high risk for falls Functional Assessments: Bed Mobility Bed Mobility: Yes Bed Mobility 1 Bed Mobility 1: Supine to sitting, Sitting to supine Level of Assistance 1: Close supervision Bed Mobility Comments 1: Unable to lift right leg into/out of bed. Uses UEs to lift leg. Would benefit from leg collision worker Transfers Transfer: Yes Transfer 1 Technique 1: [...] LLE : Within Functional Limits Outcome Measures: [facility] Basic Mobility Turning from your back to [...] Documentation Home Exercise Program, taught by Jelly Ortega, PT at 09/04/2024 9:44 AM. Learner: Patient [...] Therapy Evaluation Patient Name: Apoorva Gonzalez Department: [facility] 60 Room: 60[facility]60-A Today's Date: 09/04/2024 Time Calculation Start Time: 843 Stop Time: 0858 Time Calculation (min): 14 min Assessment: OT [...] admitted on 08/30 as a transfer from [facility] due to right anterior thigh hematoma. 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 female [...] seizures(on keppra), HTN, presenting as transfer from [facility] for IR intervention for thigh hematoma. CTA [...] cellulitis and hematoma - Recent hospitalization at [facility] on 08/14 with sudden cardiac [...] bleeding Disp: PT/ot pending POA: Son: Mayur [phone] I reviewed the resident/fellow's documentation and discussed [...] this note may have been generated using [employer] voice recognition software. Reasonable efforts were made [...] PRN medications: HYDROmorphone, meclizine 09/03/24 1612 Transitional Golf Range Attendant Notes: Transitional Care Coordination Progress Note: Patient discussed during interdisciplinary rounds. Team members present: MD and TCC Plan per Medical/Surgical team: Pending PT/OT to evaluate for discharge needs. Anticipating discharge for tomorrow. Payor: [employer]? Discharge disposition: [facility] Potential Barriers: none ADOD: 1-3 days Assessment [...] seizures(on keppra), HTN, presenting as transfer from [facility] for IR intervention for thigh hematoma. CTA [...] cellulitis and hematoma - Recent hospitalization at [facility] on 08/14 with sudden cardiac [...] this note may have been generated using [employer] voice recognition software. Reasonable efforts were made [...] seizures(on keppra), HTN, presenting as transfer from [facility] for IR intervention for thigh hematoma. CTA [...] cellulitis and hematoma - Recent hospitalization at [facility] on 08/14 with sudden cardiac [...] this note may have been generated using [employer] voice recognition software. Reasonable efforts were made [...] Daily [5] [6] PRN medications: HYDROmorphone, meclizine RUST met with patient yesterday and again today for medicaid screening. Each time patient refuses screening stating that she has insurance. RUST states her insurance is showing as inactive in the system. called [employer] [place] to inquire if they are billing insurance for this patient. Dwain at [facility] states that she has a [employer] product and provides numbers: Group # [id number] Plan # [id number]. JOSÉ MIGUEL Rios Apoorva [...] States make urine Musculoskeletal: Comments: Rt thigh iaoztubyf-zdgmrftz-lycohooh intact Ble without edema Skin: General: Skin is warm and dry. Neurological: General: No focal deficit present. Mental Status: She is alert and oriented to person, place, and time. Psychiatric: Mood and Affect: Mood normal. Behavior: Behavior normal. Last Recorded Vitals Blood pressure 146/70, pulse 81, temperature 36.9 C (98.4 F), temperature source Temporal, resp. rate 18, height 1.63 m (5' 4.17"), weight 51.8 kg (114 lb 3.2 oz), [...] Units Result Value Ref Range PRODUCT CODE [id number] Unit Number [id number] Unit ABO O Unit RH POS XM [...] electrolytes . K+=3.7 Outpatient Dialysis schedule: TTS [facility] Access: lt fist- no issues - able [...] inpatient and to follow with the outpatient biztalk architect at discharge MAYANK Longo Apoorva Gonzalez is a 74 y.o. female [...] 4.41 mg/dL (H)). No results found for: "CRP" Microbiology 08/16/24 R thigh aspirate culture- negative [...] Chambers PA-C Infectious Disease Team B Epic irene preferred Clinical updates sent to [facility] via [employer] for patient to return to [facility] [place] upon discharge on TTS schedule. Awaiting update from RUST on medicaid eligibility. JOSÉ MIGUEL Rios Vancomycin [...] Units Result Value Ref Range PRODUCT CODE [id number] Unit Number [id number] Unit ABO O Unit RH POS XM [...] seizures(on keppra), HTN, presenting as transfer from [facility] for IR intervention for thigh hematoma. CTA [...] hematoma with culture if possible, discussed with " ortho, ACS, and IR" not planning to do any procedure at this time. ID rec dc aBX #. Rt Thigh hematoma s/p abscess drainage #. Right anterior thigh cellulitis and hematoma - Recent hospitalization at [facility] on 08/14 with sudden cardiac [...] this note may have been generated using [employer] voice recognition software. Reasonable efforts were made [...] admitted for Hematoma. Pharmacy reviewed the patient's hgzzl-zl-wkglldtnc medications and allergies for accuracy. Medications ADDED: All medications on SHIPPING AGENT list Medications CHANGED: None Medications REMOVED: None The list below reflects the updated SHIPPING AGENT list. Prior to Admission Medications Prescriptions Last [...] Patient declines M2B at discharge. Sources: SNF --[facility] Additional Comments: SHIPPING AGENT medication list updated per [facility] SNF medication list List was active as of 08/26 Jenn Martin PharmD Transitions of Care Pharmacist 08/31/24 Secure Chat preferred If no response call [phone] or Droid system master "Med Rec" 08/31/24 1248 Discharge Planning Living Arrangements Alone Support Systems [...] were you homeless or living in a detention (including now)? N Transportation Needs In the [...] DME: [place]: denies Dialysis: [facility] in [place] TTS Social Work Needs: Patient stated she has transportation to dialysis. Denies any financial or social work needs. Transportation at discharge: will possibly need transportation home Potential Barriers: none Discharge Disposition: [facility] ADOD: 2-4 days Ann Sheridan RN, BSN Transitional Golf Range Attendant Apoorva Gonzalez is a 74 y.o. female [...] seizures(on keppra), HTN, presenting as transfer from [facility] for IR intervention for thigh hematoma. CTA was obtained that showed expanding hematoma in right thigh. Patient status post 2 units packed RBC. IR on board at this time did not recommended embolization, requested continue clinical monitoring and serial H&H. #. Rt Thigh hematoma s/p abscess drainage #Right anterior thigh cellulitis and hematoma - Recent hospitalization at [facility] on 08/14 with sudden cardiac [...] this note may have been generated using [employer] voice recognition software. Reasonable efforts were made [...] HYDROmorphone, meclizine, vancomycin documented in this encounter [facility] Work Phone: 09-06-2024 Hospital course Narrative [...] and HTN who presented as transfer from [facility] for IR embolization of thigh hematoma. Note patient had a recent hospitalization at [facility] on 08/14 with sudden cardiac arrest, though to be sepsis due to R thigh and anterior hip abscess She underwent CT guided aspiration then I&D in OR, treated with IV Zosyn x7 days then discharged 08/24 to SNF with wound vac. Cultures reported to be negative. She re-presented to [facility] on 08/26 for increased pain [...] incrementation to 8.1. Patient was transferred to [facility] for IF embolization of thigh hematoma. IR [...] Levi Geronimo MD documented in this encounter [facility] Work Phone: 09-06-2024 Hospital Note Formatting of t his note might be different from the original. Apoorva Gonzalez is a 74 y.o. female presenting with pmhx of seizures(on keppra), ESRD on dialysis TTS LUE fistula, and HTN who presented as transfer from [facility] for IR embolization of thigh hematoma. Note patient had a recent hospitalization at [facility] on 08/14 with sudden cardiac arrest, though to be sepsis due to R thigh and anterior hip abscess She underwent CT guided aspiration then I&D in OR, treated with IV Zosyn x7 days then discharged 08/24 to SNF with wound vac. Cultures reported to be negative. She re-presented to [facility] on 08/26 for increased pain [...] incrementation to 8.1. Patient was transferred to [facility] for IF embolization of thigh hematoma. IR [...] stable conditioned on 09/06 with home care. [facility] Work Phone: 09-06-2024 Hospital Discharge instructions [...] a pleasure taking care of you at [facility]! Best, Dr. Levi Geronimo Ann Sheridan RN - 09/06/2024 1:31 PM EDT [facility] will provide your home care services. There contact number is . A nurse will contact you 24-48 hours post discharge to arrange services. documented in this encounter [facility] Work Phone: 09-06-2024 Plan of care [...] did make progress toward the following goals. [facility] Work Phone: 09-05-2024 Nurse Note Patient walked around this evening in the hallway with the walker and she tolerated it well. She said moving around helps lessen her pain. [facility] 09-05-2024 Nurse Note Patient walked around [...] VALENZUELA Report from Sending RN: Report From: Mona [...] 18 Temp 36.4 documented in this encounter [facility] Work Phone: 09-05-2024 Plan of care [...] include Pt will remain safe throughout shift [facility] Work Phone: 09-05-2024 Nurse Note Report to [...] Last Updated: 10:59 AM by AMELIA VALENZUELA [facility] 09-05-2024 Nurse Note Report from Sending RN: [...] assess when pt arrives to the unit. [facility] 09-05-2024 Plan of care note Problem: Pain [...] not make progress toward the following goals. [facility] Work Phone: 09-04-2024 Nurse Note During shift change pt was found coming out of bathroom with walker, which was tolerated well. Pt is alert and denies pain with clear speech. Pt has no concerns at this time. Call light and essentials wnr of pt. [facility] 09-04-2024 Plan of care note Problem: Pain [...] by end of the shift Outcome: Progressing [facility] 09-04-2024 Plan of care note The patient's [...] by end of the shift Outcome: Progressing T [facility] 09-03-2024 Plan of care note The patient's [...] appropriate for maintaining nutritional needs Outcome: Progressing T [facility] 09-02-2024 Procedure note I evaluated the patient during dialysis. No complaints. BP: 128/73 BFR: 400 Anticipated fluid removal: 2L Vascular access: left upper arm AVF Plan: Continue TTS dialysis schedule. Jennifer [facility] Work Phone: 09-02-2024 Procedure note I evaluated the patient during dialysis. No complaints. BP: 128/73 BFR: 400 Anticipated fluid removal: 2L Vascular access: left upper arm AVF Plan: Continue TTS dialysis schedule. Jennifer documented in this encounter [facility] Work Phone: 09-02-2024 Nurse Note Report to Receiving RN: Report To: CYNTHIA Pierre Time Report Called: [id number] Hand-Off Communication: Pt completed 3.5 hrs HD, [...] Last Updated: 10:45 AM by GUILHERME GONZALES [facility] 09-02-2024 Plan of care note Problem: Pain [...] level or baseline comfort level Outcome: Progressing [facility] Work Phone: 09-02-2024 Nurse Note Report from [...] Catheter Dressing: AVF Last Dressing Change: AVF [facility] 09-02-2024 Plan of care note Problem: Pain [...] address these barriers include pain medication . [facility] 09-01-2024 Plan of care note The patient's [...] monitored and maintained or improved Outcome: Progressing [facility] 09-01-2024 area manager Note IR consulted for consideration of right thigh hematoma aspiration. Imaging features consistent with hematoma without an obvious suspicious target for infection/abscess aspiration. [facility] Work Phone: 09-01-2024 Plan of care note [...] these barriers include surgery and pain medication. [facility] Work Phone: 08-31-2024 Nurse Note Report to Receiving RN: Report To: Taquita, RN Time Report Called: 18:24 Hand-Off Communication: tolerated [...] Last Updated: 6:24 PM by DEISY CASTAÑEDA [facility] 08-31-2024 Nurse Note Pt hemoglobin 6.4. Md Toscano notified. Order to continue to monitor until next CBC draw. [facility] 08-31-2024 Consult note Associated Order (s): Inpatient [...] ESRD management She gets dialysis TTS at [facility] in [place]. She states her treatments have been uneventful [...] [18] BP: (118-149)/(60-70) Height: [163 cm (5' 4.17")] Weight: [51.8 kg (114 lb 3.2 oz)] [...] Arianna Hogan MD [1] No Known Allergies [facility] Work Phone: 08-31-2024 Consult note Associated [...] ESRD management She gets dialysis TTS at [facility] in [place]. She states her treatments have been uneventful [...] [18] BP: (118-149)/(60-70) Height: [163 cm (5' 4.17")] Weight: [51.8 kg (114 lb 3.2 oz)] [...] presented on 08/31 as a transfer from [facility] for further management of R thigh hematoma and possible IR embolization. Pt was recently hospitalized from 08/14-08/24/24 at [facility] for sudden cardiac arrest and sepsis thought [...] wound vac. On 08/26/2024, pt presented from SNF to [facility] ED with increased RLE pain and swelling. [...] concern for active bleeding. Pt transferred to [facility] on 08/31 for further management and possible [...] [18] BP: (118-136)/(60-67) Height: [163 cm (5' 4.17")] Weight: [51.8 kg (114 lb 3.2 oz)] [...] 7.69 mg/dL (H)). No results found for: "CRP", SEDRATE No results found for: "HIV1X2", "HIVCONF", "[id number]" No results found for: "HEPCABINIT", "HEPCAB", HCVPCRQUANT Microbiology Imaging Assessment/Plan Apoorva Gonzalez is [...] Berta Chambers PA-C Infectious Disease Team B Yany bonilla preferred [1] No family history on file. [...] Evelia Mejia PharmD documented in this encounter [facility] Work Phone: 08-31-2024 Consult note Associated Order (s): Inpatient consult to Infectious Diseases Inpatient consult to Infectious Diseases Consult performed by: Berat Chambers PA-C Consult ordered by: Teodoro Toscano MD Referred by Dr. Teodoro Toscano Primary MD: No primary care provider on file. Reason For Consult R thigh abscess History Of Present Illness Apoorva Gonzalez is a 74 y.o. female with a PMHx of ESRD on HD (T,TH, Sat LUE fistula), HTN, HLD, chronic anemia who presented on 08/31 as a transfer from [facility] for further management of R thigh hematoma and possible IR embolization. Pt was recently hospitalized from 08/14-08/24/24 at [facility] for sudden cardiac arrest and sepsis thought [...] treated for CAP while hospitalized. Discharged to [facility] on 08/24 w/ wound vac. On 08/26/2024, pt presented from [facility] to [facility] ED with increased RLE pain and swelling. [...] concern for active bleeding. Pt transferred to [facility] on 08/31 for further management and possible [...] [18] BP: (118-136)/(60-67) Height: [163 cm (5' 4.17")] Weight: [51.8 kg (114 lb 3.2 oz)] [...] 7.69 mg/dL (H)). No results found for: "CRP", SEDRATE No results found for: "HIV1X2", "HIVCONF", "[id number]" No results found for: "HEPCABINIT", "HEPCAB", HCVPCRQUANT Microbiology Imaging Assessment/Plan Apoorva Gonzalez is [...] Infectious Disease Team B Epic chat preferred [1] No family history on file. [...] [4] [5] PRN medications: HYDROmorphone, meclizine, vancomycin [facility] Work Phone: 08-31-2024 Nurse Note Report from [...] 83) HR 83 RR 18 Temp 36.4 [facility] Work Phone: 08-31-2024 Plan of care note The patient's goals for the shift include rest The clinical goals for the shift include pt will remain safe during shift [facility] Work Phone: 08-31-2024 area manager Note Apoorva Gonzalez is a 74 [...] of 08/30, with plan for transfer to [facility] for potential embolization. The patient arrived to [facility] around 0001 08/31/24. Initial Hb was 7.0, [...] JUSTINE ROQUE on 08/31/24 at 9:02 AM. [facility] Work Phone: 08-31-2024 Consult note Associated [...] and signs/symptoms of toxicity. Evelia Mejia PharmD [facility] Work Phone: 08-31-2024 Plan of care note [...] safe and free from injury during shift [facility] Work Phone: 08-31-2024 History and physical note History Of Present Illness Apoorva Gonzalez is a 74 y.o. female presenting with pmhx of seizures(on keppra), ESRD on dialysis Tths LUE fistula, HTN, presenting as transfer from [facility] for IR intervention . Patient initially presented [...] for intervention. Of note: Recent hospitalization at [facility] on 08/14 with sudden cardiac [...] resp. rate 18, height 1.63 m (5' 4.17"), weight 51.8 kg (114 lb 3.2 oz), [...] LUE fistula, HTN, presenting as transfer from [facility] for IR intervention for R thigh hematoma, [...] ] consult renal in am - [facility] on non dialysis days #acute on chronic anemia :: labs suggesting anemia of chronic disease, re-obtain labs here #hx of seizures cw keppra F: as needed E: K>4 Mg>2 N: npo A: PIV DVT Ppx: none GI Ppx: none Code status: full code NOK: Extended Emergency Contact Information Primary Emergency Contact: Edward mandel Mobile Relation: Significant Other Preferred language: [employer] Teacher'S Aide needed? No Cory Montelongo MD [1] No [...] decision making as documented in the note. [facility] Work Phone: 08-31-2024 History and physical note History Of Present Illness Apoorva Gonzalez is a 74 y.o. female presenting with pmhx of seizures(on keppra), ESRD on dialysis Tths LUE fistula, HTN, presenting as transfer from [facility] for IR intervention . Patient initially presented [...] for intervention. Of note: Recent hospitalization at [facility] on 08/14 with sudden cardiac [...] resp. rate 18, height 1.63 m (5' 4.17"), weight 51.8 kg (114 lb 3.2 oz), [...] LUE fistula, HTN, presenting as transfer from [facility] for IR intervention for R thigh hematoma, [...] ] consult renal in am - cw [facility] 10 on non dialysis days #acute on chronic anemia :: labs suggesting anemia of chronic disease, re-obtain labs here #hx of seizures cw keppra F: as needed E: K>4 Mg>2 N: npo A: PIV DVT Ppx: none GI Ppx: none Code status: full code NOK: Extended Emergency Contact Information Primary Emergency Contact: Edward mandel Mobile Relation: Significant Other Preferred language: [employer] Teacher'S Aide needed? No Cory Montelongo MD [1] No [...] in the note. documented in this encounter [facility] Work Phone: 08-30-2024 area manager Note Transfer Acceptance Note - [facility] Receiving Facility: [facility] Accepting Physician: Carine Mejia DO Date/Time: 7:54 AM Patient: Apoorva Gonzalez Sending Facility: [facility] Reason for Transfer: Evaluation and management of acutely bleeding R anterior thigh hematoma requiring IR embolization (not available at sending facility). Dr. Clarke Mckeon from IR at [facility] was contacted and agreed with transfer specifically to [facility] for embolization. Pertinent History: Presentation: Presented from SNF to [facility] ED with increased right lower extremity pain and swelling, concern for hematoma, ortho and vascular consulted. CTA of lower extremity done showing contrast pooling in hematoma with active bleeding. Vascular recommended urgent transfer for IR embolization. Past Medical History: ESRD on HD (T, Th, Wed), HTN, HLD, chronic anemia. Recent hospitalization at [facility] on 08/14 with sudden cardiac [...] RA Disposition: Accepted to General Medicine at [facility] for: Management of acute R anterior thigh hematoma with acute blood loss anemia (on chronic anemia) with planned IR embolization at [facility]. Coordination of multidisciplinary evaluation (e.g., IR, vascular surgery, nephrology) Note: Transfer center and sending facility advised to re-contact accepting physician if any clinical deterioration occurs prior to arrival. Hospitalist [facility] Work Phone: 07-17-2024 Emergency department Note Discharged. Instructions given. Concerns addressed. Patient aware of dialysis schedule. Visitor at bedside and is driving patient home. Patient is alert oriented and cooperative. Gait is steady. No sign or symptom of distress. Transported to [facility] via wheel chair. [facility] 07-17-2024 Emergency department Note Discharged. Instructions given. Concerns addressed. Patient aware of dialysis schedule. Visitor at bedside and is driving patient home. Patient is alert oriented and cooperative. Gait is steady. No sign or symptom of distress. Transported to [facility] via wheel chair. This RN is taking [...] The patient reports that their blood pressure "got screwed up" during the surgery, leading to the loss [...] 01/25/2024 Performed by Chrissy Gilman MD at [facility] ENDOSCOPY IR CVC TUNNELED DIALYSIS CATHETER PLACEMENT 02/27/2022 IR CVC TUNNELED CATHETER PLACEMENT 02/27/2022 Candis Andrade MD [facility] SPECIAL PROCEDURES IR EMBOLIZATION 01/24/2024 IR EMBOLIZATION 01/24/2024 Jovan Glynn MD [facility] SPECIAL PROCEDURES CURRENT MEDICATIONS Current [...] Homeless in the Last Year: No SCREENINGS [place] Coma Scale Best Eye Response: To verbal stimuli Best Verbal Response: Oriented Best Motor Response: Follows commands [place] Coma Scale Score: 14 PHYSICAL EXAM ED [...] DEPARTMENT COURSE and DIFFERENTIAL DIAGNOSIS/MDM: Vitals: Vitals: 07/17/24192907/17/24194207/17/24195607/17/242031 BP: 124/61 (!) 150/77 (!) 160/80 127/73 [...] History of blood transfusion 02/27/2022 Hypertension Seizure ([facility]) Developed seizure-like activity on 02/24 during hospital admission Past Surgical History: Procedure Laterality Date AV FISTULA PLACEMENT Left 08/07/2022 COLONOSCOPY N/A 01/25/2024 Performed by Chrissy Gilman MD at [facility] ENDOSCOPY IR CVC TUNNELED DIALYSIS CATHETER PLACEMENT 02/27/2022 IR CVC TUNNELED CATHETER PLACEMENT 02/27/2022 Candis Andrade MD [facility] SPECIAL PROCEDURES IR EMBOLIZATION 01/24/2024 IR EMBOLIZATION 01/24/2024 Jovan Glynn MD [facility] SPECIAL PROCEDURES [facility] Budlarry Navarro Cross 74 y.o. female presents with the following [...] Medications - No data to display The color television console monitor revealed sinus rhythm as interpreted by me. The color television console monitor was ordered secondary to the patient's history [...] sepsis, or septic shock (If yes use ".sepsiscoremeasure"): FINAL IMPRESSION 1. Adverse effect of drug, initial encounter DISPOSITION Discharge 07/17/2024 08:39:52 PM PATIENT REFERRED TO: Roxie Judit [address] [facility] [place] [id number] Schedule an appointment as soon as possible [...] 07/17/2024 10:26 PM EDT Emergency Department Encounter [facility] EMERGENCY [...] Sanchez DO 07/17/242042 documented in this encounter [facility] 07-17-2024 Hospital Discharge instructions Victor Manuel Kowalski DO - 07/17/2024 8:39 PM EDT Please attend your previously scheduled session for dialysis tomorrow in addition to and this coming Wednesday. Please follow-up with your primary physician or if you do not have a PCP, with the [facility], in 1 week. Please return to the emergency department for any new or worsening symptoms as we discussed. documented in this encounter [facility] 07-17-2024 Emergency department Note This RN is taking over care of this patient at this time. Per Previous shift RN;s patient is at dialysis and will return to ED when dialysis is complete. [facility] 07-17-2024 Nurse Note Patient Name: Apoorva Gonzalez Patient : 1950 Acct: [id number] Date of Admission: 07/17/2024 Room/Bed: [facility] Code Status: Prior Allergies: No Known Allergies [...] (0) 3 Regular None (Room air) Clear [place] Warm;Dry;No swelling Soft Active 07/17/242000 Alert (0) 3 Regular None (Room air) [place] -- -- -- Labs Lab Results Component [...] - Before each treatment: Dialysis Machine No.: [id number] MIKAYLA Machine Number: [id number] Dialyzer Lot No.: [id number] Tubing Lot Number: [id number] All Connections Secure: Yes Venous Parameters Set: Yes Arterial Parameters Set: Yes NS Bag: Yes Saline Line Double Clamped: Yes Dialyzer: Nipro Prime Volume (mL): 200 mL RO Machine Number: [id number] RO Machine Log Sheet Completed: Yes Machine Alarm Self Test: Completed, Passed (07/17/24 1627) Air Foam Detector: Tested, Proper Function, pH Reading Extracorporeal Circuit Tested for Integrity: Yes Machine Conductivity: 13.6 Manual Conductivity: 13.7 Manual Ph: 7 Bleach Test (Neg): Yes Bath Temperature: 36 C (96.8 F) Conductivity Meter Serial #: [id number] Machine Functioning Alarm Free? Yes Dialysis Bath: [...] 160/80 -- -- 84 -- -- -- 07/17/241942 (!) 150/77 36.3 C (97.3 F) -- 85 -- -- -- 07/17/24 1930 124/61 -- -- 103 -- -- -- 07/17/24 1915 137/75 -- -- 85 -- -- -- 07/17/24 1900 (!) 152/79 -- -- 84 -- -- -- 07/17/24 184 (!) 160/80 -- -- 80 -- -- [...] and report given to Primary RN at 1999. Primary RN (First Initial, Last Name, Title): Will Humphries RN Education Person Educated: Patient Knowledge Base: Substantial Barriers to Learning?: None Preferred method of Learning: Oral Topic(s): Call Light Education, Access Care, Signs and Symptoms of Infection, and Fluid Management Teaching Tools: Explanation Response to Education: Verbalized Understanding [facility] 07-17-2024 Nurse Note Patient Name: Apoorva Gonzalez Patient : 1950 Acct: [id number] Date of Admission: 07/17/2024 Room/Bed: [facility] Code Status: Prior Allergies: No Known Allergies [...] (0) 3 Regular None (Room air) [facility] [place] Warm;Dry;No swelling Soft Active 07/17/242000 Alert (0) 3 Regular None (Room air) [place] -- -- -- Labs Lab Results Component [...] - Before each treatment: Dialysis Machine No.: [id number] RO Machine Number: [id number] Dialyzer Lot No.: [id number] Tubing Lot Number: [id number] All Connections Secure: Yes Venous Parameters Set: Yes Arterial Parameters Set: Yes NS Bag: Yes Saline Line Double Clamped: Yes Dialyzer: Nipro Prime Volume (mL): 200 mL RO Machine Number: [id number] RO Machine Log Sheet Completed: Yes Machine Alarm Self Test: Completed, Passed (07/17/247) Air Foam Detector: Tested, Proper Function, pH Reading Extracorporeal Circuit Tested for Integrity: Yes Machine Conductivity: 13.6 Manual Conductivity: 13.7 Manual Ph: 7 Bleach Test (Neg): Yes Bath Temperature: 36 C (96.8 F) Conductivity Meter Serial #: [id number] Machine Functioning Alarm Free? Yes Dialysis Bath: [...] 160/80 -- -- 84 -- -- -- 07/17/241942 (!) 150/77 36.3 C (97.3 F) -- 85 -- -- -- 07/17/240 124/61 -- -- 103 -- -- -- 07/17/241914 137/75 -- -- 85 -- -- -- 07/17/24 1900 (!) 152/79 -- -- 84 -- -- -- 07/17/241844 (!) 160/80 -- -- 80 -- -- -- 07/17/24 1830 (!) 158/78 -- -- 83 -- -- -- 07/17/24 181 (!) 164/76 -- -- 84 -- -- [...] and report given to Primary RN at 1999. Primary RN (First Initial, Last Name, Title): Will Humphries RN Education Person Educated: Patient Knowledge Base: Substantial Barriers to Learning?: None Preferred method of Learning: Oral Topic(s): Call Light Education, Access Care, Signs and Symptoms of Infection, and Fluid Management Teaching Tools: Explanation Response to Education: Verbalized Understanding documented in this encounter [facility] 07-17-2024 Emergency department Note Patient taken to dialysis. [facility] 07-17-2024 Emergency department Note Pt went to an open bed that was not assigned to any nurse or medic and transferred pt over. Said they were waiting too long. Bed was moved to the medic desk by this medic. Visually monitoring until a bed opens. [facility] 07-17-2024 Physician Emergency department Note EMERGENCY DEPARTMENT [...] The patient reports that their blood pressure "got screwed up" during the surgery, leading to the loss [...] 01/25/2024 Performed by Chrissy Gilman MD at [facility] ENDOSCOPY IR CVC TUNNELED DIALYSIS CATHETER PLACEMENT 02/27/2022 IR CVC TUNNELED CATHETER PLACEMENT 02/27/2022 Candis Andrade MD [facility] SPECIAL PROCEDURES IR EMBOLIZATION 01/24/2024 IR EMBOLIZATION 01/24/2024 Jovan Glynn MD [facility] SPECIAL PROCEDURES CURRENT MEDICATIONS Current [...] Homeless in the Last Year: No SCREENINGS [place] Coma Scale Best Eye Response: To verbal stimuli Best Verbal Response: Oriented Best Motor Response: Follows commands [place] Coma Scale Score: 14 PHYSICAL EXAM ED [...] COURSE and DIFFERENTIAL DIAGNOSIS/MDM: Vitals: Vitals: 07/17/24 19307/17/24194207/17/24195607/17/242031 BP: 124/61 (!) 150/77 (!) 160/80 127/73 [...] History of blood transfusion 02/27/2022 Hypertension Seizure (FORMERLY [facility]) Developed seizure-like activity on 02/24 during hospital admission Past Surgical History: Procedure Laterality Date AV FISTULA PLACEMENT Left 08/07/2022 COLONOSCOPY N/A 01/25/2024 Performed by Chrissy Gilman MD at [facility] ENDOSCOPY IR CVC TUNNELED DIALYSIS CATHETER PLACEMENT 02/27/2022 IR CVC TUNNELED CATHETER PLACEMENT 02/27/2022 Candis Andrade MD [facility] SPECIAL PROCEDURES IR EMBOLIZATION 01/24/2024 IR EMBOLIZATION 01/24/2024 Jovan Glynn MD [facility] SPECIAL PROCEDURES [facility] Marie Guerin Melanie West 74 y.o. female presents with the [...] Medications - No data to display The color television console monitor revealed sinus rhythm as interpreted by me. The color television console monitor was ordered secondary to the patient's history [...] sepsis, or septic shock (If yes use ".sepsiscoremeasure"): FINAL IMPRESSION 1. Adverse effect of drug, initial encounter DISPOSITION Discharge 07/17/2024 08:39:52 PM PATIENT REFERRED TO: Roxie Spain [address] [facility] [id number] Schedule an appointment as soon as [...] (electronically signed) Emergency Medicine Physician Victor Manuel Kowalksi DO Resident 07/17/242040 Cosigned by Rivas Sanchez DO at 07/17/2024 10:26 PM EDT [facility] 07-17-2024 Physician Emergency department Note Emergency Department Encounter [facility] EMERGENCY DEPT Patient: Apoorva Gonzalez [...] [employer] Rivas Sanchez DO 07/17/242042 [facility] [employer] Work Phone: 06-29-2024 Hospital Discharge instructions Robson Syed [...] of you today. documented in this encounter [facility] 06-29-2024 Emergency department Note Pt returned from dialysis at this time [facility] 06-29-2024 Emergency department Note Pt returned from [...] Pt family member states she had a "jerking" movement and began to fall when he was able to catch her. Pt denies hitting head or LOC. Pt states she is on dialysis and goes 3 times a week. Pt states she has been having "jerking" movements since yesterday evening. HISTORY OF PRESENT ILLNESS (Location/Symptom, Timing/Onset, Context/Setting, Quality, Duration, Modifying Factors, Severity) Note limiting factors. I wore appropriate PPE for the entirety of this encounter. HPI Apoorva Gonzalez is a 74 y.o. female who presents to the emergency department for evaluation of "jerking" movements ongoing since yesterday. Patient states that she is on dialysis Wednesday, , Wednesday at her days. States she has not missed a session. She notes over the past 24 hours have developed these involuntary movements described as her "whole body jerking". She notes this occurred and caused her [...] History of blood transfusion 02/27/2022 Hypertension Seizure (FORMERLY [facility]) Developed seizure-like activity on 02/24 during hospital admission SURGICAL HISTORY Past Surgical History: Procedure Laterality Date AV FISTULA PLACEMENT Left 08/07/2022 COLONOSCOPY N/A 01/25/2024 Performed by Chrissy Gilman MD at [facility] ENDOSCOPY IR CVC TUNNELED DIALYSIS CATHETER PLACEMENT 02/27/2022 IR CVC TUNNELED CATHETER PLACEMENT 02/27/2022 Candis Andrade MD [facility] SPECIAL PROCEDURES IR EMBOLIZATION 01/24/2024 IR EMBOLIZATION 01/24/2024 Jovan Glynn MD [facility] SPECIAL PROCEDURES CURRENT MEDICATIONS Previous [...] Homeless in the Last Year: No SCREENINGS [place] Coma Scale Best Eye Response: Spontaneous Best [...] acute focal neurological deficit. Normal finger-nose. Normal ambe-if-aaqx. NIHSS 0 Psychiatric: Mood and Affect: Mood [...] Culture. Procedure Abnormality Status --------- ------ Complete Urinalysis[[id number]] Please view results for these tests on [...] 06/29/2024 4:48 PM EDT Emergency Department Encounter [facility] EMERGENCY DEPT Patient: Apoorva Gonzalez [...] upper or lower extremity drift. Cerebellar (finger-nose, kame-ik-wxqj) normal. Brief ED course/MDM: Patient appears nontoxic. [...] [employer] Veronica Abebe MD 06/29/24 1322 documented in this encounter [facility] 06-29-2024 Nurse Note Patient Name: Apoorva Gonzalez Patient : 1950 Acct: [id number] Date of Admission: 06/29/2024 Room/Bed: [facility] Code Status: Prior Allergies: No Known Allergies [...] (0) 3 Regular None (Room air) [place] Warm;Dry;No swelling Soft Active 06/29/24 1756 Alert (0) 3 Regular None (Room air) [place] Warm;Dry;No swelling -- -- Labs Lab Results [...] - Before each treatment: Dialysis Machine No.: [id number] RO Machine Number: [id number] Dialyzer Lot No.: [id number] Tubing Lot Number: [id number] All Connections Secure: Yes Venous Parameters Set: Yes Arterial Parameters Set: Yes NS Bag: Yes Saline Line Double Clamped: Yes Dialyzer: Nipro Prime Volume (mL): 200 mL RO Machine Number: [id number] RO Machine Log Sheet Completed: Yes Machine Alarm Self Test: Completed, Passed (1420) (06/29/24 1421) Air Foam Detector: Tested, Proper Function, pH Reading Extracorporeal Circuit Tested for Integrity: Yes Machine Conductivity: 13.8 Manual Conductivity: 13.6 Manual Ph: 7.2 Bleach Test (Neg): Yes Bath Temperature: 36 C (96.8 F) Conductivity Meter Serial #: [id number] Machine Functioning Alarm Free? Yes Dialysis Bath: K+ (Potassium): 2 Ca+ (Calcium): 2.5 Na+ (Sodium): 135 HCO3 (Bicarb): 35 Chlorine Testing - Before each treatment and every 4 hours: Time On: 1442 Time Off: 174 Treatment Goal: 2 Weight Height: 162.6 cm (5' 4") (06/29/24600) Weight: 50.8 kg (112 lb) (06/29/24600) [...] -- -- -- -- 1.626 m (5' 4") 50.8 kg (112 lb) Post-Dialysis Arterial Catheter [...] Explanation Response to Education: Verbalized Understanding T [facility] 06-29-2024 Nurse Note Patient Name: Apoorva Gonzalez Patient : 1950 Acct: [id number] Date of Admission: 06/29/2024 Room/Bed: [facility] Code Status: Prior Allergies: No Known Allergies [...] (0) 3 Regular None (Room air) [place] Warm;Dry;No swelling Soft Active 06/29/24 1756 Alert (0) 3 Regular None (Room air) [place] Warm;Dry;No swelling -- -- Labs Lab Results [...] - Before each treatment: Dialysis Machine No.: [id number] RO Machine Number: [id number] Dialyzer Lot No.: [id number] Tubing Lot Number: [id number] All Connections Secure: Yes Venous Parameters Set: Yes Arterial Parameters Set: Yes NS Bag: Yes Saline Line Double Clamped: Yes Dialyzer: Nipro Prime Volume (mL): 200 mL RO Machine Number: [id number] RO Machine Log Sheet Completed: Yes Machine Alarm Self Test: Completed, Passed (1420) (06/29/24 1421) Air Foam Detector: Tested, Proper Function, pH Reading Extracorporeal Circuit Tested for Integrity: Yes Machine Conductivity: 13.8 Manual Conductivity: 13.6 Manual Ph: 7.2 Bleach Test (Neg): Yes Bath Temperature: 36 C (96.8 F) Conductivity Meter Serial #: [id number] Machine Functioning Alarm Free? Yes Dialysis Bath: K+ (Potassium): 2 Ca+ (Calcium): 2.5 Na+ (Sodium): 135 HCO3 (Bicarb): 35 Chlorine Testing - Before each treatment and every 4 hours: Time On: 1442 Time Off: 1742 Treatment Goal: 2 Weight Height: 162.6 cm (5' 4") (06/29/24600) Weight: 50.8 kg (112 lb) (06/29/24600) [...] -- -- -- -- 1.626 m (5' 4") 50.8 kg (112 lb) Post-Dialysis Arterial Catheter [...] Education: Verbalized Understanding documented in this encounter [facility] 06-29-2024 Emergency department Note Pt notified that she will go to dialysis between 2-3 pm today. [facility] 06-29-2024 Emergency department Note Report given to CYNTHIA Schulte [facility] 06-29-2024 Physician Emergency department Note EMERGENCY DEPARTMENT ENCOUNTER Pt Name: Apoorva Gonzalez Birthdate 1950 Date of evaluation: 06/29/2024 ED Provider: Kierra Escamilla PA-C CHIEF COMPLAINT Chief Complaint Patient presents with Fall Pt presents to ED after a fall. Pt family member states she had a "jerking" movement and began to fall when he was able to catch her. Pt denies hitting head or LOC. Pt states she is on dialysis and goes 3 times a week. Pt states she has been having "jerking" movements since yesterday evening. HISTORY OF PRESENT ILLNESS (Location/Symptom, Timing/Onset, Context/Setting, Quality, Duration, Modifying Factors, Severity) Note limiting factors. I wore appropriate PPE for the entirety of this encounter. HPI Apoorva Gonzalez is a 74 y.o. female who presents to the emergency department for evaluation of "jerking" movements ongoing since yesterday. Patient states that she is on dialysis Wednesday, , Wednesday at her days. States she has not missed a session. She notes over the past 24 hours have developed these involuntary movements described as her "whole body jerking". She notes this occurred and caused her [...] 01/25/2024 Performed by Chrissy Gilman MD at [facility] ENDOSCOPY IR CVC TUNNELED DIALYSIS CATHETER PLACEMENT 02/27/2022 IR CVC TUNNELED CATHETER PLACEMENT 02/27/2022 Candis Andrade MD [facility] SPECIAL PROCEDURES IR EMBOLIZATION 01/24/2024 IR EMBOLIZATION 01/24/2024 Jovan Glynn MD [facility] SPECIAL PROCEDURES CURRENT MEDICATIONS Previous [...] acute focal neurological deficit. Normal finger-nose. Normal fpwm-mi-ghvq. NIHSS 0 Psychiatric: Mood and Affect: Mood [...] Culture. Procedure Abnormality Status --------- ------ Complete Urinalysis[[id number]] Please view results for these tests on [...] will be given 15 g Lokelma. See Epiphany for EKG interpretation by attending. Imaging results [...] Abebe MD at 06/29/2024 4:48 PM EDT [employer] Phone: 06-29-2024 Physician Emergency department Note Emergency [...] upper or lower extremity drift. Cerebellar (finger-nose, afjz-oy-ecej) normal. Brief ED course/MDM: Patient appears nontoxic. [...] dictating provider for clarification.) Veronica Abebe MD [facility] Veronica Abebe MD 06/29/24 1322 [facility] 03-03-2024 Nurse Note Family member here to take patient home, DC papers given to patient, Education completed by mily MARIE but reinforced [facility] 03-03-2024 Nurse Note Family member here to take patient home, DC papers given to patient, Education completed by miyl MARIE but reinforced Patient return from dialysis. Alert and oriented. Tele removed and IV Dc'd. States that she called family member for ride home and he is on the way Patient Name: Apoorva Gonzalez Patient : 1950 Acct: [id number] Date of Admission: 03/02/2024 Room/Bed: [facility] B Code Status: Full Code Allergies: No [...] 409 03/03/2024520 NA 138 03/03/2024520 K 5.0 03/03/2024 0521 CL 98 03/03/2024 0521 CO2 28 03/03/202421 BUN 42 (H) 03/03/2024520 CREATININE 8.03 (H) 03/03/2024 05 CALCIUM 8.3 (L) 03/03/2024520 PHOS 5.7 (H) 01/25/2024 0003 IV Drips and Rate/Dose Safety - Before each treatment: Dialysis Machine No.: [id number] RO Machine Number: [id number] Dialyzer Lot No.: [id number] Tubing Lot Number: [id number] All Connections Secure: Yes Venous Parameters Set: Yes Arterial Parameters Set: Yes NS Bag: Yes Saline Line Double Clamped: Yes Dialyzer: Nipro Prime Volume (mL): 200 mL RO Machine Number: [id number] RO Machine Log Sheet Completed: Yes Machine Alarm Self Test: Completed, Passed (1551) (03/03/241553) Air Foam Detector: Tested, Proper Function Extracorporeal Circuit Tested for Integrity: Yes Machine Conductivity: 13.6 Manual Conductivity: 13.7 Machine Ph: 7 Manual Ph: 7 Bleach Test (Neg): Yes Bath Temperature: 36 C (96.8 F) Conductivity Meter Serial #: [id number] Machine Functioning Alarm Free? Yes Dialysis Bath: K+ (Potassium): 2 Ca+ (Calcium): 2.5 Na+ (Sodium): 137 HCO3 (Bicarb): 35 Chlorine Testing - Before each treatment and every 4 hours: Time On: 1610 Time Off: 1909 Treatment Goal: 2L Weight Height: 162.6 cm (5' 4") (03/02/24 0956) Weight: 47.8 kg (105 lb [...] Pt alert resting. Watching tv. Rmvd 2368. 03/03/241909 -- -- -- -- -- -- Yes tx complete pt stable 2500 uf removed Vital Signs Patient Vitals for the past 24 hrs: BP Temp Temp src Pulse Resp SpO2 Weight 03/03/241917 149/81 -- -- 92 -- -- -- 03/03/241909 146/83 36.7 C (98 F) -- 91 16 98 % -- 03/03/241899 159/87 -- -- 95 -- -- -- 03/03/24 184 155/82 -- -- 92 -- -- -- [...] Name: Apoorva Gonzalez Patient : 1950 Acct: [id number] Date of Admission: 03/02/2024 Room/Bed: [facility] B Code Status: Full Code Allergies: No [...] Report Received from Primary RN at Rickie Birmingham, RN Primary RN (First Initial, Last Name, Title): [id number] Incapacitated Nurse Education Completed: Yes HBsAg ONLY: [...] - Before each treatment: Dialysis Machine No.: [id number] Machine Number: [id number] Dialyzer Lot No.: [id number] Tubing Lot Number: [id number] All Connections Secure: Yes Venous Parameters Set: Yes Arterial Parameters Set: Yes NS Bag: Yes Saline Line Double Clamped: Yes Dialyzer: Nipro Prime Volume (mL): 200 mL RO Machine Number: [id number] RO Machine Log Sheet Completed: Yes Machine Alarm Self Test: Completed, Passed (03/02/24 1030) Air Foam Detector: Tested, Proper Function, pH Reading Extracorporeal Circuit Tested for Integrity: Yes Machine Conductivity: 13.8 Manual Conductivity: 13.6 Machine Ph: 7 Manual Ph: 7 Bleach Test (Neg): Yes Bath Temperature: 36 C (96.8 F) Conductivity Meter Serial #: [id number] Machine Functioning Alarm Free? Yes Dialysis Bath: K+ (Potassium): 2 Ca+ (Calcium): 2.5 Na+ (Sodium): 137 HCO3 (Bicarb): 35 Chlorine Testing - Before each treatment and every 4 hours: Time On: 1041 Time Off: 1341 Treatment Goal: 2L Weight Height: 162.6 cm (5' 4") (03/02/24955) Weight: 49.3 kg (108 lb 9.6 [...] -- -- -- -- 03/02/24 1245 (!) 171/ -- -- 82 -- -- -- -- 03/02/24 1230 (!) 171/82 -- -- 88 -- -- -- -- 03/02/24 1215 (!) 170/81 -- -- 85 -- -- -- -- 03/02/24 1200 (!) 176/ -- -- 80 -- -- -- -- 03/02/24 1145 (!) 166/ -- -- 84 -- -- -- -- 03/02/24 1130 (!) 169/ -- -- 83 -- -- -- -- 03/02/24 1100 (!) 191/ -- -- 84 -- -- -- -- 03/02/24 1045 (!) 188/ -- -- 88 -- -- -- -- 03/02/24 1041 (!) 203/ -- -- 87 -- -- -- -- 03/02/24 1030 (!) 190/ 36.4 C (97.5 F) -- 86 16 95 % -- -- 03/02/24 0956 (!) 189 36.1 C (97 F) Temporal 90 20 93 % 1.626 m (5' 4") 49.3 kg (108 lb 9.6 oz) 03/02/24 0900 (!) 189 (!) 35.9 C (96.7 F) Temporal 90 [...] -- -- -- -- 1.626 m (5' 4") 48.5 kg (107 lb) 03/02/24 0351 (!) 208/ 36.2 C (97.1 F) Temporal 90 16 [...] and report given to Primary RN at 9857. Primary RN (First Initial, Last Name, Title): Rickie Birmingham RN Education Person Educated: Patient Knowledge Base: Minimal Barriers to Learning?: None Preferred method of Learning: Oral Topic(s): Access Care, Signs and Symptoms of Infection, Procedural, and Treatment Options Teaching Tools: Explanation Response to Education: Verbalized Understanding documented in this encounter [facility] 03-03-2024 Nurse Note Patient return from dialysis. Alert and oriented. Tele removed and IV Dc'd. States that she called family member for ride home and he is on the way [facility] 03-03-2024 Plan of care note Problem: Pain - Adult Goal: Verbalizes/displays adequate comfort level or baseline comfort level 03/03/2024 175 by Rickie Birmingham RN Outcome: Adequate for Discharge 03/03/2024 1005 by Rickie Birmingham RN Outcome: Progressing Problem: Safety - Adult Goal: Free from fall injury 03/03/2024 175 by Rickie Birmingham RN Outcome: [...] are monitored and maintained or improved 03/03/2024 1751 by Rickie Birmingham RN Outcome: Adequate for Discharge 03/03/2024 1005 by Rickie Birmingham RN Outcome: Progressing [facility] 03-03-2024 Miscellaneous Notes Problem: Pain - Adult Goal: Verbalizes/displays adequate comfort level or baseline comfort level 03/03/2024 175 by Rickie Birmingham RN Outcome: Adequate for Discharge 03/03/2024 1005 by Rickie Birmingham RN Outcome: Progressing Problem: Safety - Adult Goal: Free from fall injury 03/03/2024 175 by Rickie Birmingham RN Outcome: [...] Limits Permission given to speak with patient assisted sales representative/caregiver as indicated: Confirmation of Payer [...] Daily Living Prescription Coverage: Yes [id number] [place] [place] [facility] [address] Medication Management: Independent Transportation/Shopping: Independent Transportation Mode: Car Needs Assistance with Transportation at Discharge: No (Edward-friend) Meal Preparation: Independent Laundry/Cleaning: Independent Finances/Bill Paying: Independent Communication: Independent Types of Care Services/Equipment Utilized Care Services: (NA) Dialysis Type: Hemo Dialysis Provider Name/Location: [facility] Dialysis Schedule: /WED Transportation to Dialysis: self Durable Medical Equipment: [...] improved Outcome: Progressing documented in this encounter [facility] 03-03-2024 Nurse Note Patient Name: Apoorva Gonzalez Patient : 1950 Acct: [id number] Date of Admission: 03/02/2024 Room/Bed: [facility] B Code Status: Full Code Allergies: No [...] HGB 10.2 (L) 03/03/2024520 HGB 12.1 03/02/2024 0510 HCT 32.8 (L) 03/03/2024520 PLT 409 03/03/2024520 NA 138 03/03/2024520 K 5.0 03/03/2024520 CL 98 03/03/2024520 CO2 28 03/03/2024520 BUN 42 (H) 03/03/2024520 CREATININE 8.03 (H) 03/03/2024520 CALCIUM 8.3 (L) 03/03/2024520 PHOS 5.7 (H) 01/25/2024 0003 IV Drips and Rate/Dose Safety - Before each treatment: Dialysis Machine No.: [id number] RO Machine Number: [id number] Dialyzer Lot No.: [id number] Tubing Lot Number: [id number] All Connections Secure: Yes Venous Parameters Set: Yes Arterial Parameters Set: Yes NS Bag: Yes Saline Line Double Clamped: Yes Dialyzer: Nipro Prime Volume (mL): 200 mL RO Machine Number: [id number] RO Machine Log Sheet Completed: Yes Machine Alarm Self Test: Completed, Passed (1551) (03/03/241553) Air Foam Detector: Tested, Proper Function Extracorporeal Circuit Tested for Integrity: Yes Machine Conductivity: 13.6 Manual Conductivity: 13.7 Machine Ph: 7 Manual Ph: 7 Bleach Test (Neg): Yes Bath Temperature: 36 C (96.8 F) Conductivity Meter Serial #: [id number] Machine Functioning Alarm Free? Yes Dialysis Bath: K+ (Potassium): 2 Ca+ (Calcium): 2.5 Na+ (Sodium): 137 HCO3 (Bicarb): 35 Chlorine Testing - Before each treatment and every 4 hours: Time On: 161 Time Off: 1909 Treatment Goal: 2L Weight Height: 162.6 cm (5' 4") (03/02/24 0956) Weight: 47.8 kg (105 lb [...] Pt alert resting. Watching tv. Rmvd 2368. 03/03/241909 -- -- -- -- -- -- Yes tx complete pt stable 2500 uf removed Vital Signs Patient Vitals for the past 24 hrs: BP Temp Temp src Pulse Resp SpO2 Weight 03/03/241917 149/81 -- -- 92 -- -- -- 11/29/24 1910 146/83 36.7 C (98 F) -- [...] Tools: Demonstration Response to Education: Verbalized Understanding [facility] [employer] 03-03-2024 History of Present illness Narrative [facility] Progress Note Nephrology following for ESRD HD yesterday. Events over night: Doing well BP 143/75 (BP Location: Right arm, Patient Position: Sitting) Pulse 81 Temp 36.1 C (97 F) (Temporal) Resp 16 Ht 1.626 m (5' 4") Wt 47.8 kg (105 lb 6.4 oz) [...] today anddch home -Please message me through [employer] Culture & Media chat with any questions or concerns. Please message me through [employer] Culture [employer] Media chat with any questions or concerns. Sean Castaneda MD 03/03/2024 1:00 PM [facility] [address], [address] [place] [address] Office: [phone] Hospitalist Progress Note 03/03/2024 9:58 AM Subjective: Admit Date: 03/02/2024 PCP: Roxie Spain Apoorva is a 73 y.o. female with [...] Low Potassium (Less than 3000 mg/day) @IODETAILS@ @[email or web address]@ Medications: amLODIPine, 10 mg, Oral, Daily atorvastatin, [...] GLUCOSE 110* 91 No results for input(s): "AST", "ALT", "BILITOT", "ALKPHOS" in the last 72 hours. No lab exists for component: ALB No results found for: "TRIG", "HDL", "LDLCALC", "CHOL" No results for input(s): "INR" in the last 72 hours. Recent Labs 03/02/24 0510 03/02/24 0820 03/02/24 1036 TROPONINI 0.028 0.029 0.029 Objective: Vitals: BP 146/75 (BP Location: Right arm, Patient Position: Sitting) Pulse 77 Temp 36.2 C (97.1 F) (Temporal) Resp 16 Ht 5' 4" (1.626 m) Wt 105 lb 6.4 oz [...] Advance Directive: Full Code Magalys Can MD, [facility] Hospitalist documented in this encounter [facility] 03-03-2024 Note Formatting of this n ote might be different from the original. Care Managment Initial Assessment Date: 03/03/2024 Patient Name: Apoorva Gonzalez : 1950 Patient Information Source of Information: Patient Cognition/Language: WFL - Within Functional Limits Permission given to speak with patient assisted sales representative/caregiver as indicated: Confirmation of Payer [...] Daily Living Prescription Coverage: Yes [id number] [place] [place] [place] [facility] [address] Medication Management: Independent Transportation/Shopping: Independent Transportation Mode: Car Needs Assistance with Transportation at Discharge: No (Edward-friend) Meal Preparation: Independent Laundry/Cleaning: Independent Finances/Bill Paying: Independent Communication: Independent Types of Care Services/Equipment Utilized Care Services: (NA) Dialysis Type: Hemo Dialysis Provider Name/Location: [facility] Dialysis Schedule: /WED Transportation to Dialysis: self Durable Medical Equipment: [...] plan. Nephrology following. HD. Citlali Chu RN [facility] 03-03-2024 Note Formatting of this n ote might be different from the original. Care Managment Initial Assessment Date: 03/03/2024 Patient Name: Apoorva Gonzalez : 1950 Patient Information Source of Information: Patient Cognition/Language: WFL - Within Functional Limits Permission given to speak with patient assisted sales representative/caregiver as indicated: Confirmation of Payer with patient/family: Yes Payer Name: [employer] MEDICARE ADVANTAGE/HU[employer]NA MEDICARE [place]: No Confirmation of Primary Care Physician: Confirmed [...] Daily Living Prescription Coverage: Yes Pharm[facility] Used[id number] [address] Medication Management: Independent Transportation/Shopping: Independent Transportation Mode: Car Needs Assistance with Transportation at Discharge: No (Edward-friend) Meal Preparation: Independent Laundry/Cleaning: Independent Finances/Bill Paying: Independent Communication: Independent Types of Care Services/Equipment Utilized Care Services: (NA) Dialysis Type: Hemo Dialysis Provider Name/Location: [facility] Dialysis Schedule: //WED Transportation to Dialysis: self [...] plan. Nephrology following. HD. Citlali Chu RN [facility] 03-03-2024 Plan of care note Problem: Pain [...] monitored and maintained or improved Outcome: Progressing [facility] 03-03-2024 Plan of care note Problem: Pain [...] monitored and maintained or improved Outcome: Progressing [facility] 03-02-2024 Consult note Formatting of th is note is different from the original. [facility] Nephrology Consult Note Consults HPI Apoorva Melanie Gonzalez is a 73 y.o. female with [...] vomiting. Patient is TTS HD patient at [facility], with Dr. Meza as outpatient biztalk architect. Past Medical History: Diagnosis Date Chronic kidney [...] F) Resp 16 Ht 1.626 m (5' 4") Wt 49.3 kg (108 lb 9.6 oz) [...] repeat in am Please message me through [employer] Culture [employer] Media chat with any questions or concerns. Sean Tonya, MD 03/02/2024 12:51 PM [facility] [address], [address] [place] [address] Office: [phone] [facility] 03-02-2024 Consult note Formatting of th is note is different from the original. [facility] Nephrology Consult Note Consults HPI Apoorva Gonzalez [...] vomiting. Patient is TTS HD patient at [facility], with Dr. Meza as outpatient biztalk architect. Past Medical History: Diagnosis Date Chronic kidney [...] F) Resp 16 Ht 1.626 m (5' 4") Wt 49.3 kg (108 lb 9.6 oz) [...] repeat in am Please message me through [place] [employer] Culture [employer] Media chat with any questions or concerns. Sean Castaneda MD 03/02/2024 12:51 PM [facility] [address] [place] [address], [address] [place] [id number] Office: [phone] documented in this encounter [facility] 03-02-2024 Nurse Note Patient Name: Apoorva Gonzalez Patient : 1950 Acct: [id number] Date of Admission: 03/02/2024 Room/Bed: [facility] B Code Status: Full Code Allergies: No [...] Primary RN (First Initial, Last Name, Title): [id number] Incapacitated Nurse Education Completed: Yes HBsAg ONLY: [...] 10.2 (L) 03/02/2024 0510 HGB 12.1 03/02/2024 05 HCT 32.3 (L) 03/02/2024 05 PLT 406 03/02/2024 0510 NA 137 03/02/2024 0510 K 6.4 (HH) 03/02/2024 05 CL 97 (L) 03/02/2024 05 CO2 20 (L) 03/02/2024 0510 BUN 58 (H) 03/02/2024 0510 CREATININE 11.21 (H) 03/02/2024 0510 CALCIUM 8.8 03/02/202410 PHOS 5.7 (H) 01/25/2024 0003 IV Drips and Rate/Dose Safety - Before each treatment: Dialysis Machine No.: [id number] RO Machine Number: [id number] Dialyzer Lot No.: [id number] Tubing Lot Number: [id number] All Connections Secure: Yes Venous Parameters Set: Yes Arterial Parameters Set: Yes NS Bag: Yes Saline Line Double Clamped: Yes Dialyzer: Nipro Prime Volume (mL): 200 mL RO Machine Number: [id number] RO Machine Log Sheet Completed: Yes Machine Alarm Self Test: Completed, Passed (03/02/24 1030) Air Foam Detector: Tested, Proper Function, pH Reading Extracorporeal Circuit Tested for Integrity: Yes Machine Conductivity: 13.8 Manual Conductivity: 13.6 Machine Ph: 7 Manual Ph: 7 Bleach Test (Neg): Yes Bath Temperature: 36 C (96.8 F) Conductivity Meter Serial #: [id number] Machine Functioning Alarm Free? Yes Dialysis Bath: K+ (Potassium): 2 Ca+ (Calcium): 2.5 Na+ (Sodium): 137 HCO3 (Bicarb): 35 Chlorine Testing - Before each treatment and every 4 hours: Time On: 1041 Time Off: 1341 Treatment Goal: 2L Weight Height: 162.6 cm (5' 4") (03/02/24955) Weight: 49.3 kg (108 lb 9.6 [...] -- -- -- -- 03/02/24 1145 (!) 166/ -- -- 84 -- -- -- -- 03/02/24 1130 (!) 169/ -- -- 83 -- -- -- -- 03/02/24 1100 (!) 191/ -- -- 84 -- -- -- -- 03/02/24 1045 (!) 188/ -- -- 88 -- -- -- -- 03/02/24 1041 (!) 203/ -- -- 87 -- -- -- -- 03/02/24 1030 (!) 190/ 36.4 C (97.5 F) -- 86 16 95 % -- -- 03/02/24 0956 (!) 189/ 36.1 C (97 F) Temporal 90 20 93 % 1.626 m (5' 4") 49.3 kg (108 lb 9.6 oz) 03/02/24 0900 (!) 189/ (!) 35.9 C (96.7 F) Temporal 90 [...] -- -- -- -- 1.626 m (5' 4") 48.5 kg (107 lb) 03/02/24 0351 (!) 208/ 36.2 C (97.1 F) Temporal 90 16 [...] Tools: Explanation Response to Education: Verbalized Understanding [facility] 03-02-2024 History and physical note Attending History [...] Date Chronic kidney disease (CKD) Hemodialysis patient ([facility]) ([facility]) Wednesday, , Saturday History of blood transfusion 02/27/2022 Hypertension Seizure (HCC) Developed seizure-like activity on 02/24 during hospital admission Past Surgical History: Past Surgical History: Procedure Laterality Date AV FISTULA PLACEMENT Left 08/07/2022 COLONOSCOPY N/A 01/25/2024 Performed by Chrissy Gilman MD at [facility] ENDOSCOPY IR CVC TUNNELED DIALYSIS CATHETER PLACEMENT 02/27/2022 IR CVC TUNNELED CATHETER PLACEMENT 02/27/2022 Candis Andrade MD [facility] SPECIAL PROCEDURES IR EMBOLIZATION 01/24/2024 IR EMBOLIZATION 01/24/2024 Jovan Glynn MD [facility] SPECIAL PROCEDURES Social History: Social [...] C (97.5 F) Resp 16 Ht 5' 4" (1.626 m) Wt 108 lb 9.6 oz [...] ANIONGAP 20* LIVER PROFILE:No results for input(s): "AST", "ALT", "BILITOT", "ALKPHOS", "PROT" in the last 72 hours. No lab exists for component: LABALBU PT/INR: No results for input(s): "PROTIME", "INR" in the last 72 hours. CARDIAC ENZYMES: Recent Labs 03/02/24 0510 03/02/24 0820 TROPONINI 0.028 0.029 Procalcitonin: No results found for: "PROCAL" Urine Culture: No results found for this or any previous visit. COVID-19 PCR: No results for input(s): "COVID19" in the last 72 hours. I reviewed: [...] Ruggiero Mobile Relation: Significant Other Preferred language: [employer] Teacher'S Aide needed? No [employer] Apoorva Gonzalez : 1950 Primary Care Physician: Roxie Spain The patient and/or family/surrogate voluntarily agreed to participate in ACP services. Patient s cognitive capacity: AAOx3 Code Status: [X] [FULL CODE - Continue all advanced life support: CPR,intubation,invasive procedures] [_] [DNR-CCA - DO NOT do CPR, intubation] [_] [DNR-QUICK TECHNICIAN - Comfort care only] [_] DNR form [was/was not] signed Total time spent: 5 minutes were spent discussing the patient's resuscitation status, advance care planning, and end of life care, with patient and/or family/surrogate. John Mayes DO Division of Hospitalist Medicine [facility] 03-02-2024 History and physical note Attending History [...] 01/25/2024 Performed by Chrissy Gilman MD at [facility] ENDOSCOPY IR CVC TUNNELED DIALYSIS CATHETER PLACEMENT 02/27/2022 IR CVC TUNNELED CATHETER PLACEMENT 02/27/2022 Candis Andrade MD [facility] SPECIAL PROCEDURES IR EMBOLIZATION 01/24/2024 IR EMBOLIZATION 01/24/2024 Jovan Glynn MD [facility] SPECIAL PROCEDURES Social History: Social [...] C (97.5 F) Resp 16 Ht 5' 4" (1.626 m) Wt 108 lb 9.6 oz [...] ANIONGAP 20* LIVER PROFILE:No results for input(s): "AST", "ALT", "BILITOT", "ALKPHOS", "PROT" in the last 72 hours. No lab exists for component: LABALBU PT/INR: No results for input(s): "PROTIME", "INR" in the last 72 hours. CARDIAC ENZYMES: Recent Labs 03/02/24 0510 03/02/24 0820 TROPONINI 0.028 0.029 Procalcitonin: No results found for: "PROCAL" Urine Culture: No results found for this or any previous visit. COVID-19 PCR: No results for input(s): "COVID19" in the last 72 hours. I reviewed: [...] Ruggiero Mobile Relation: Significant Other Preferred language: [employer] Teacher'S Aide needed? No [employer]ING Apoorva Gonzalez : 1950 Primary Care Physician: Roxie Spain The patient and/or family/surrogate voluntarily agreed to participate in ACP services. Patient s cognitive capacity: AAOx3 Code Status: [X] [FULL CODE - Continue all advanced life support: CPR,intubation,invasive procedures] [_] [DNR-CCA - DO NOT do CPR, intubation] [_] [DNR-QUICK TECHNICIAN - Comfort care only] [_] DNR form [was/was not] signed Total time spent: 5 minutes were spent discussing the patient's resuscitation status, advance care planning, and end of life care, with patient and/or family/surrogate. John Mayes DO Division of Hospitalist Medicine [facility] documented in this encounter [facility] 03-02-2024 Plan of care note Problem: Pain [...] monitored and maintained or improved Outcome: Progressing [facility] 03-02-2024 Emergency department Note Pt in for transport to the floor. Orders states she can come off tele for transport. [facility] 03-02-2024 Emergency department Note Pt in for [...] History of blood transfusion 02/27/2022 Hypertension Seizure ([facility]) Developed seizure-like activity on 02/24 during hospital admission SURGICAL HISTORY Past Surgical History: Procedure Laterality Date AV FISTULA PLACEMENT Left 08/07/2022 COLONOSCOPY N/A 01/25/2024 Performed by Chrissy Gilman MD at [facility] ENDOSCOPY IR CVC TUNNELED DIALYSIS CATHETER PLACEMENT 02/27/2022 IR CVC TUNNELED CATHETER PLACEMENT 02/27/2022 Candis Andrade MD [facility] SPECIAL PROCEDURES IR EMBOLIZATION 01/24/2024 IR EMBOLIZATION 01/24/2024 Jovan Glynn MD [facility] SPECIAL PROCEDURES CURRENT MEDICATIONS Current [...] Resp BP 03/02/24 0351 03/02/24 0351 03/02/24 0351 03/02/24 0351 36.2 C (97.1 F) 90 16 (!) 208/97 SpO2 Temp Source Heart Rate Source Patient Position 03/02/24 0351 03/02/24 0351 03/02/24 0351 03/02/24 0900 (!) 88 % Temporal Monitor Lying [...] Abnormal Glucose 239 (*) Narrative: Performed by: [facility], [address] [place] [address] CLIA ID: [id number] POCT GLUCOSE METER UNSOLICITED RESULTS - Abnormal Glucose 57 (*) Narrative: Performed by: [facility], [address] [place] [address] CLIA ID: [id number] TROPONIN, WITH SERIAL REFLEX - Normal TROPONIN [...] - Normal Glucose 88 Narrative: Performed by: [facility], [address] [place] [address] CLIA ID: [id number] POCT GLUCOSE METER UNSOLICITED RESULTS - Normal Glucose 88 Narrative: Performed by: [facility], [address] [place] [address] CLIA ID: [id number] POCT GLUCOSE METER POCT GLUCOSE METER POCT [...] QT Interval 404 QTC Interval 483 P [place] 58 QRS [place] 0 T Wave [place] 51 [place] Interval 123 Impression Sinus rhythm [...] to contact the dictating provider for clarification.) Jaocb Laguna DO (electronically signed) Emergency Medicine Provider Jacob Laguna DO Resident 03/02/24 1206 Cosigned by Marcus Ragland DO at 03/02/2024 4:24 PM EST documented in this encounter [facility] 03-02-2024 Emergency department Note Pt BGT was 57. Pt AxOx4. Oral glucose given [facility] 03-02-2024 Emergency department Note Report from CYNTHIA Jim [facility] 03-02-2024 Emergency department Note Pt 88% on RA in triage. Placed on 2L per NC [facility] 03-02-2024 Physician Emergency department Note Emergency Department [...] [employer] Marcus Ragland DO 03/02/24 0645 [facility] Phone: 03-02-2024 Physician Emergency department Note EMERGENCY [...] History of blood transfusion 02/27/2022 Hypertension Seizure ([facility]) Developed seizure-like activity on 02/24 during hospital admission SURGICAL HISTORY Past Surgical History: Procedure Laterality Date AV FISTULA PLACEMENT Left 08/07/2022 COLONOSCOPY N/A 01/25/2024 Performed by Chrissy Gilman MD at [facility] ENDOSCOPY IR CVC TUNNELED DIALYSIS CATHETER PLACEMENT 02/27/2022 IR CVC TUNNELED CATHETER PLACEMENT 02/27/2022 Candis Andrade MD [facility] SPECIAL PROCEDURES IR EMBOLIZATION 01/24/2024 IR EMBOLIZATION 01/24/2024 Jovan Glynn MD [facility] SPECIAL PROCEDURES CURRENT MEDICATIONS Current [...] Vitals Temp Heart Rate Resp BP 03/02/24 03503/02/24 03503/02/24 03503/02/24 035 36.2 C (97.1 F) 90 16 (!) 208/97 SpO2 Temp Source Heart Rate Source Patient Position 03/02/24 03503/02/24 03503/02/24 03503/02/24 0900 (!) 88 % Temporal Monitor [...] Abnormal Glucose 239 (*) Narrative: Performed by: [facility], [address] [place], [place] [id number] CLIA ID: [id number] POCT GLUCOSE METER UNSOLICITED RESULTS - Abnormal Glucose 57 (*) Narrative: Performed by: [facility], [address] [place] [address] CLIA ID: [id number] TROPONIN, WITH SERIAL REFLEX - Normal TROPONIN [...] - Normal Glucose 88 Narrative: [facility], [address] [place] [address] CLIA ID: [id number] POCT GLUCOSE METER UNSOLICITED RESULTS - Normal Glucose 88 Narrative: Performed by: [facility], [address] [place] [address] CLIA ID: [id number] POCT GLUCOSE METER POCT GLUCOSE METER POCT [...] QT Interval 404 QTC Interval 483 P [place] 58 QRS [place] 0 T Wave [place] 51 [place] Interval 123 Impression Sinus rhythm [...] Ragland DO at 03/02/2024 4:24 PM EST [facility] 02-20-2024 Nurse Note RN reviewed discharge AVS with pt and pt verbalized understanding. Pt ambulated out independently to meet at entrance [facility] 02-20-2024 Nurse Note RN reviewed discharge AVS with pt and pt verbalized understanding. Pt ambulated out independently to meet at entrance documented in this encounter [facility] 02-20-2024 Hospital course Narrative Hospitalist Discharge Summary [...] activity on 02/24 during hospital admission Procedures: UF Hospital Course: Apoorva is a 73 y.o. [...] (97.6 F) (Temporal) Resp 16 Ht 5' 4" (1.626 m) Wt 107 lb (48.5 kg) [...] person, place, and time. LABS: Recent Labs 02/19/24 0410 02/19/24 1614 02/20/24 0020 NA 134* 134* 135 [...] vitamin B-1 250 MG tablet [facility] [address] [facility] [id number] Schedule an appointment as soon as possible for a visit in 1 week(s) Complexity of Follow up: [] Moderate Complexity: follow up within 7-14 calendar days (19826) [x] Severe Complexity: follow up within 7 calendar days (21888) Follow up Testing, Pending results or Referrals [...] Geoff Gonsales MD Division of Hospitalist Medicine [facility] 02/20/2024, 3:01 PM documented in this encounter [facility] 02-20-2024 History of Present illness Narrative [facility] Nephrology Progress Note Patient is a 73 y.o. female who is admitted to hospital with complaints of SOB . Nephrology consulted in view of ESRD . Events over night: Feeling better . Had HD on 02/18 BP 157/72 (BP Location: Left arm, Patient Position: Lying) Pulse 88 Temp 36.4 C (97.6 F) (Temporal) Resp 16 Ht 1.626 m (5' 4") Wt 48.5 kg (107 lb) SpO2 94% [...] Ok for Discharge Please message me through [employer] chat with any questions or concerns. Pipe Soto MD 02/20/2024 2:08 PM [facility] [address] [place] [address], [address] [place] [address] Office: [phone] [facility] Respiratory Care Department Progress Note As [...] of this patient, documented in this encounter [facility] 02-20-2024 Plan of care note Problem: Excessive [...] other facility with appropriate resources Outcome: Progressing [facility] 02-20-2024 Miscellaneous Notes Problem: Excessive Fluid Volume [...] resources Outcome: Progressing documented in this encounter [facility] 02-19-2024 Emergency department Note Patient taken to floor. Respirations even and unlabored. No acute distress noted. AXO x 4 and vitals obtained, stable for tx. [facility] 02-19-2024 Emergency department Note Patient taken to floor. Respirations even and unlabored. No acute distress noted. AXO x 4 and vitals obtained, stable for tx. Report from CYNTHIA Law. Report given to Gertrude MARIE Emergency Department Encounter [facility] EMERGENCY DEPT Patient: Apoorva Gonzalez [...] DO 02/19/24 0533 documented in this encounter [facility] 02-19-2024 Emergency department Note Report from CYNTHIA Law. [facility] 02-19-2024 Emergency department Note Report given to Gertrude MARIE [facility] 02-19-2024 Consult note Associated Order (s): Inpatient consult to Nephrology [facility] Nephrology Consult Note Inpatient consult to Nephrology [...] History of blood transfusion 02/27/2022 Hypertension Seizure ([facility]) Developed seizure-like activity on 02/24 during hospital [...] nitroglycerin, 5-200 mcg/min, Last Rate: Stopped (02/19/24 9600) PRN medications PRN medications: acetaminophen OR acetaminophen, [...] including ESRD, HTN, seizure who presented with [facility]. Nephrology following for ESRD. ESRD -patient [...] EPIC chat with any questions or concerns. Pipe Soto MD 02/19/2024 1:38 PM [facility] [address], [address] [place] [address] Office: [phone] [facility] [employer] 02-19-2024 Consult note Associated Order (s): Inpatient consult to Nephrology [facility] Nephrology Consult Note Inpatient consult to Nephrology [...] Date Chronic kidney disease (CKD) Hemodialysis patient ([facility]/HCC) (HCC) Wednesday, , Wednesday History of blood transfusion 02/27/2022 Hypertension Seizure ([facility]) Developed seizure-like activity on 02/24 during hospital [...] on TTS schedule, Please message me through [employer] chat with any questions or concerns. Pipe Soto MD 02/19/2024 1:38 PM [facility] [address] [place] [address], [address] [place] [id number] Office: [phone] documented in this encounter [facility] 02-19-2024 History and physical note Attending History [...] history significant for HTN, ESRD on HD (T//), HTN, hx seizure ( 2021 a/w HTN [...] better ( on 6 L [place]. Normally " never" on oxygen) but not feeling normal yet " "everything is off" and feeling achy all over. Denies chest [...] 01/25/2024 Performed by Chrissy Gilman MD at [facility] ENDOSCOPY IR CVC TUNNELED DIALYSIS CATHETER PLACEMENT 02/27/2022 IR CVC TUNNELED CATHETER PLACEMENT 02/27/2022 Candis Andrade MD [facility] SPECIAL PROCEDURES IR EMBOLIZATION 01/24/2024 IR EMBOLIZATION 01/24/2024 Jovan Glynn MD [facility] SPECIAL PROCEDURES Social History: Social [...] PROT 7.3 PT/INR: No results for input(s): "PROTIME", "INR" in the last 72 hours. CARDIAC ENZYMES: Recent Labs 02/19/24409 TROPONINI 0.027 Procalcitonin: No results found for: "PROCAL" Urine Culture: No results found for this or any previous visit. COVID-19 PCR: No results for input(s): "COVID19" in the last 72 hours. I reviewed: [...] am labs, replace lytes prn - PT/OT/CM/SW SEP- CORE MEASURE DATA SIRS Criteria Sepsis [...] does not have Septic Shock. Radha Kevin, DO - delirium precautions: increase activity and [...] Ruggiero Mobile Relation: Significant Other Preferred language: [employer] Teacher'S Aide needed? No Secondary Emergency Contact: Dr Cassieake Mobile Relation: Grandchild [employer]VANC[employer] PLANNING Apoorva Gonzalez : 1950 Primary Care Physician: Roxie Spain The patient and/or family/surrogate voluntarily agreed to participate in ACP services. Patient s cognitive capacity: alert and oriented Code Status: [x_] [FULL CODE - Continue all advanced life support: CPR,intubation,invasive procedures] [_] [DNR-CCA - DO NOT do CPR, intubation] [_] [DNR-QUICK TECHNICIAN - Comfort care only] [_] DNR [...] Radha Kevin DO Division of Hospitalist Medicine [facility] [employer] Phone: 02-19-2024 History and physical note Attending [...] better ( on 6 L NC. Normally " never" on oxygen) but not feeling normal yet " "everything is off" and feeling achy all over. Denies chest pain I discussed with ED provider and agree with hospital admission Past Medical History: Past Medical History: Diagnosis Date Chronic kidney disease (CKD) Hemodialysis patient ([facility]/HCC) (HCC) Wednesday, , Wednesday History of blood transfusion 02/27/2022 Hypertension Seizure (HCC) Developed seizure-like activity on 02/24 during hospital admission Past Surgical History: Past Surgical History: Procedure Laterality Date AV FISTULA PLACEMENT Left 08/07/2022 COLONOSCOPY N/A 01/25/2024 Performed by Chrissy Gilman MD at [facility] ENDOSCOPY IR CVC TUNNELED DIALYSIS CATHETER PLACEMENT 02/27/2022 IR CVC TUNNELED CATHETER PLACEMENT 02/27/2022 Candis Andrade MD [facility] SPECIAL PROCEDURES IR EMBOLIZATION 01/24/2024 IR EMBOLIZATION 01/24/2024 Jovan Glynn MD [facility] SPECIAL PROCEDURES Social History: Social [...] PROT 7.3 PT/INR: No results for input(s): "PROTIME", "INR" in the last 72 hours. CARDIAC ENZYMES: Recent Labs 02/19/24409 TROPONINI 0.027 Procalcitonin: No results found for: "PROCAL" Urine Culture: No results found for this or any previous visit. COVID-19 PCR: No results for input(s): "COVID19" in the last 72 hours. I reviewed: [...] Ruggiero Mobile Relation: Significant Other Preferred language: [employer] Teacher'S Aide needed? No Secondary Emergency Contact: Mayur Matthews Mobile Relation: [place] [employer] Apoorva Gonzalez : 1950 Primary Care Physician: Roxie Spain The patient and/or family/surrogate voluntarily agreed to participate in ACP services. Patient s cognitive capacity: alert and oriented Code Status: [x_] [FULL CODE - Continue all advanced life support: CPR,intubation,invasive procedures] [_] [DNR-CCA - DO NOT do CPR, intubation] [_] [DNR-QUICK TECHNICIAN - Comfort care only] [_] DNR [...] Radha Kevin DO Division of Hospitalist Medicine [facility] documented in this encounter [facility] 02-19-2024 Physician Emergency department Note Emergency Department Encounter [facility] EMERGENCY DEPT Patient: Apoorva Gonzalez [...] for clarification.) Cassie Mace DO Acute Care [facility] Cassie Mace DO 02/19/24 0533 [facility] Skills Matter Phone: 02-12-2024 Emergency department Note EMERGENCY DEPARTMENT [...] otherwise acutely negative except as in the [place]. PAST MEDICAL HISTORY Past Medical History: Diagnosis Date Chronic kidney disease (CKD) Hemodialysis patient (CMS/HCC) (HCC) Wednesday, , Wednesday History of blood transfusion 02/27/2022 Hypertension Seizure (HCC) Developed seizure-like activity on 02/24 during hospital admission SURGICAL HISTORY Past Surgical History: Procedure Laterality Date AV FISTULA PLACEMENT Left 08/07/2022 COLONOSCOPY N/A 01/25/2024 Performed by Chrissy Gilman MD at [facility] ENDOSCOPY IR CVC TUNNELED DIALYSIS CATHETER PLACEMENT 02/27/2022 IR CVC TUNNELED CATHETER PLACEMENT 02/27/2022 Candis Andrade MD [facility] SPECIAL PROCEDURES IR EMBOLIZATION 01/24/2024 IR EMBOLIZATION 01/24/2024 Jovan Glynn MD [facility] SPECIAL PROCEDURES CURRENT MEDICATIONS Discharge [...] sepsis, or septic shock (If yes use ".sepsiscoremeasure"): FINAL IMPRESSION 1. Hypertension, unspecified type DISPOSITION/PLAN dc PATIENT REFERRED TO: Roxie Spain [address] [place] [address] Schedule an appointment as soon as [...] oriented x's 4 documented in this encounter [facility] 02-12-2024 Emergency department Triage note Treated with medication, pt took it this morning and was high. Pt was able to ambulate without difficulty. Alert and oriented x's 4 [facility] 02-12-2024 Physician Emergency department Note EMERGENCY DEPARTMENT [...] otherwise acutely negative except as in the [place]. PAST MEDICAL HISTORY Past Medical History: Diagnosis Date Chronic kidney disease (CKD) Hemodialysis patient (CMS/HCC) (HCC) Wednesday, , Wednesday History of blood transfusion 02/27/2022 Hypertension Seizure ([facility]) Developed seizure-like activity on 02/24 during hospital admission SURGICAL HISTORY Past Surgical History: Procedure Laterality Date AV FISTULA PLACEMENT Left 08/07/2022 COLONOSCOPY N/A 01/25/2024 Performed by Chrissy Gilman MD at [facility] ENDOSCOPY IR CVC TUNNELED DIALYSIS CATHETER PLACEMENT 02/27/2022 IR CVC TUNNELED CATHETER PLACEMENT 02/27/2022 Candis Andrade MD [facility] SPECIAL PROCEDURES IR EMBOLIZATION 01/24/2024 IR EMBOLIZATION 01/24/2024 Jovan Glynn MD [facility] SPECIAL PROCEDURES CURRENT MEDICATIONS Discharge [...] sepsis, or septic shock (If yes use ".sepsiscoremeasure"): FINAL IMPRESSION 1. Hypertension, unspecified type DISPOSITION/PLAN dc PATIENT REFERRED TO: Roxie Spain [address] [id number] Schedule an appointment as soon as [...] Medicine Provider Marcus Ragland DO 02/12/24 1448 [facility] 01-25-2024 History of Present illness Narrative [facility] Progress Note Nephrology following for ESRD. Events over night: Seen and examined while on iHD tolerating well BP 158/77 (BP Location: Right arm, Patient Position: Sitting) Pulse 107 Temp 36.6 C (97.9 F) (Temporal) Resp 18 Ht 1.626 m (5' 4") Wt 52.2 kg (115 lb) SpO2 99% [...] on TTS schedule, Please message me through [employer] chat with any questions or concerns. Fabrizio Scott MD 01/25/2024 11:09 PM [facility] [address] [place] [address], [address] [place] [address] Office: [phone] Hospitalist Progress Note 01/25/2024 9:54 AM [phone]: Please page me for patient care issues. [phone]: Please page IMS night Hospitalist for any issues. Subjective: Admit Date: 01/19/2024 PCP: Roxie Spain Room#: Endo Pool/NONE Interval History: 73 y.o. F with a PMHx significant for ESRD on HD (T//), HTN, hx seizures (not currently on anti-epileptic therapy) who was initially admitted to the [facility] 01/18 for anemia 2/2 descending colonic [...] History of blood transfusion 02/27/2022 Hypertension Seizure ([facility]) Developed seizure-like activity on 02/24 during hospital admission NPO diet @[id number]@ Medications: [Transfer Hold] amLODIPine, 5 mg, Oral, [...] 11 17* LIVER PROFILE:No results for input(s): "AST", "ALT", "BILITOT", "ALKPHOS", "PROT" in the last 72 hours. No lab exists for component: LABALBU PT/INR: No results for input(s): "PROTIME", "INR" in the last 72 hours. CARDIAC ENZYMES: No results for input(s): "TROPONINI" in the last 72 hours. Procalcitonin: No results found for: "PROCAL" I reviewed: [x] laboratory results [x] radiographic results At the time of today's encounter. Pt was informed about the results. Objective: Vitals: BP (!) 122/45 Pulse 89 Temp 36.7 C (98.1 F) Resp 18 Ht 5' 4" (1.626 m) Wt 115 lb (52.2 kg) [...] Ruggiero Mobile Relation: Significant Other Preferred language: [employer] Teacher'S Aide needed? No Secondary Emergency Contact: Deshawn Crystal Mobile Relation: Brother [employer] Teacher'S Aide needed? No Advance Directive: Full Code Anticipated Discharge - - Location - Home - Pending the following -pending clinical course, hemoglobin stabilization, Total time spent (which include face to face and non face to face encounters) : 30 minutes Leticia Collier MD,MD Division of Hospitalist Medicine Images from the original note were not included. PHYSICAL THERAPY [facility] Initial Evaluation Name/MRN: Apoorva Gonzalez ([id number]) Evaluation Date: 01/24/2024 Date of : 1950 Admission Date: 01/19/2024 5:28 PM Age: 73 y.o. Room/Bed: [facility] B Discharge Recommendation: Home with assist PRN [...] Date Chronic kidney disease (CKD) Hemodialysis patient ([facility]) ([facility]) Wednesday, , Wednesday History of blood transfusion 02/27/2022 Hypertension Seizure ([facility]) Developed seizure-like activity on 02/24 during hospital admission Past Surgical History: Past Surgical History: Procedure Laterality Date AV FISTULA PLACEMENT Left 08/07/2022 IR CVC TUNNELED DIALYSIS CATHETER PLACEMENT 02/27/2022 IR CVC TUNNELED CATHETER PLACEMENT 02/27/2022 Candis Andrade MD [facility] SPECIAL PROCEDURES Admission Diagnosis: Patient Active Problem [...] Responsibilities: Independent Receives Help From: None Active Reconcilement Clerk: Yes Prior Level of Function Prior Level [...] 0848 Time Out 0900 Minutes 12 Brenda Ni SPT Patient's Physical Therapy Plan of Care supervision is transferred to a [facility] Therapy Services Physical Therapist. Goals and/or treatment plan was established in collaboration with patient/family/other representatives. Cosigned by Rosey Damico PT at 01/24/2024 1:24 PM EDT Hospitalist Progress Note 01/24/2024 8:55 AM [phone]: Please page me for patient care issues. [phone]: Please page IMS night Hospitalist for any issues. Subjective: Admit Date: 01/19/2024 PCP: Roxie Spain Room#: W6-622/W6-622 B Interval History: 73 y.o. F with a PMHx significant for ESRD on HD (//), HTN, hx seizures (not currently on anti-epileptic therapy) who was initially admitted to the [facility] 01/18 for anemia 2/2 descending colonic [...] on 02/24 during hospital admission NPO diet @[id number]@ Medications: amLODIPine, 5 mg, Oral, Daily pantoprazole, [...] 5 11 LIVER PROFILE:No results for input(s): "AST", "ALT", "BILITOT", "ALKPHOS", "PROT" in the last 72 hours. No lab exists for component: LABALBU PT/INR: No results for input(s): "PROTIME", "INR" in the last 72 hours. CARDIAC ENZYMES: No results for input(s): "TROPONINI" in the last 72 hours. Procalcitonin: No results found for: "PROCAL" I reviewed: [x] laboratory results [x] radiographic results At the time of today's encounter. Pt was informed about the results. Objective: Vitals: BP 138/68 (BP Location: Right arm, Patient Position: Lying) Pulse 92 Temp 36.6 C (97.8 F) (Temporal) Resp 16 Ht 5' 4" (1.626 m) Wt 117 lb 1 oz [...] Extended Emergency Contact Information Primary Emergency Contact: RuggieroEdward Mobile Relation: Significant Other Preferred language: [employer] Teacher'S Aide needed? No Secondary Emergency Contact: Deshawn Crystal Mobile Relation: Brother [employer] Teacher'S Aide needed? No Advance Directive: Full Code Anticipated Discharge - Date -TBD - Location - Home - Pending the following -pending clinical course, workup, colonoscopy Total time spent (which include face to face and non face to face encounters) : 30 minutes Leticia Collier MD,MD Division of Hospitalist Medicine Images from the original note were not included. OCCUPATIONAL THERAPY [facility] Initial Evaluation Name/MRN: Apoorva Gonzalez ([id number]) Evaluation Date: 01/24/2024 Date of : 1950 Admission Date: 01/19/2024 5:28 PM Age: 73 y.o. Room/Bed: [facility] B Discharge Recommendation: Home with assist PRN [...] Date Chronic kidney disease (CKD) Hemodialysis patient ([facility]/HCC) ([facility]) Wednesday, , Wednesday History of blood transfusion 02/27/2022 Hypertension Seizure ([facility]) Developed seizure-like activity on 02/24 during hospital admission Past Surgical History: Past Surgical History: Procedure Laterality Date AV FISTULA PLACEMENT Left 08/07/2022 IR CVC TUNNELED DIALYSIS CATHETER PLACEMENT 02/27/2022 IR CVC TUNNELED CATHETER PLACEMENT 02/27/2022 Candis Andrade MD [facility] SPECIAL PROCEDURES Admission Diagnosis: Patient [...] Responsibilities: Independent Receives Help From: None Active Reconcilement Clerk: Yes Prior Level of Function Prior Level [...] Modified Independent Functional mobility: Modified Independent Patient [place] for sit-stand from EOB x 2 attempts. Patient ambulated to commode in bathroom with no device and [place]. Patient transferred on/off commode with no grab bars. Patient with no overt LOB. Device(s) used: None AM-PAC AM-PAC Inpatient Daily Activity Raw Score: 24 ADL Inpatient [facility] G-Code Modifier: CH Plan No skilled acute [...] a [facility] Therapy Services Occupational Therapist. Goals and/or treatment plan was established in collaboration with patient/family/other representatives. [facility] Progress Note Nephrology following for ESRD. Events over night: Doing well-Overnight -HD did well. Patient also received non-urgent HD yesterday afternoon (on // schedule). BP 145/74 Pulse 87 Temp 36.6 C (97.9 F) (Temporal) Resp 20 Ht 1.626 m (5' 4") Wt 53.1 kg (117 lb 1 oz) [...] on TTS schedule, Please message me through [employer] chat with any questions or concerns. Sean Castaneda MD 01/23/2024 12:09 PM [facility] [address] [place] [address], [address] [place] [address] Office: [phone] ICU Progress Note Name: Apoorva Gonzalez : 1950(73 y.o.) Date: 01/23/24 Team: MICU Attending: Dr. Schneider Subjective: Hospital Summary: 73 y.o. F with a PMHx significant for ESRD on HD (T//), HTN, hx seizures (not currently on anti-epileptic therapy) who was initially admitted to the [facility] 01/18 for anemia 2/2 descending colonic [...] BP MAP 153/70 (01/23/24 0507) 95 (01/23/24 050) Arterial BP MAP 122/49 (01/21/24 0206) Temp 36.9 C (98.4 F) (01/23/24 050) Pulse 89 (01/23/24 050) Resp 20 (01/23/24 050) SpO2 99 % (01/23/24506) Weight 53.1 kg (117 lb 1 oz) [...] Normal [] Scar/Lesion/Mass Inspection of teeth/lips/gums Dentition: []Apache Teeth []Dentures Lips/Gums: [x]Intact []Lesion Present Mucosa: [x][place] []Moist []Dry Neck: External Appearance Overall Appearance: [...] 5.5* 4.3 LFTs: No results for input(s): "AST", "ALT", "PROT", "ALBUMIN", "BILITOT", "BILIRUBINU", "ALKPHOS", "LIPASE" in the last 72 hours. Glucose: Recent Labs 01/21/24 0036 01/22/24 0010 01/23/24 0504 GLUCOSE 85 78 107* Procal: No results for input(s): "PROCAL" in the last 72 hours. CBC: Recent [...] not displayed. ABGs: No results for input(s): "PHART", "KJC1XGB", "PO2ART", "DKP4KIY", "SO2ART", "U4LSWDFM" in the last 72 hours. Lactic Acid: No results for input(s): "LACTATE" in the last 72 hours. INR: No results for input(s): "INR" in the last 72 hours. Cardiac Injury Profile: No results for input(s): "CKTOTAL", "CKMB", "TROPONINI" in the last 72 hours. Labs in [...] COVID19 Legionella Ag: No results found for: "LEGIONELLAPN" Strep Ag: No results for input(s): "STREPPNEUMO" in the last 72 hours. Imaging- CTA [...] - stable Leukocytosis - improving ESRD (HD //) Constipation - resolved Hx HTN Presyncope 2/2 [...] PO DVT Prophylaxis: SCDs Disposition: Transfer to [facility] Cosigned by Ronald Schneider DO at 01/23/2024 6:50 PM EDT Associated attestation - Ronald Schneider DO - 01/23/2024 6:50 PM EDT I have personally performed a qdai-oj-hiin diagnostic evaluation on this patient on date of service 01/23/24. History, labs, imaging studies, and electronic medical record have been reviewed by me. This note documented by the []Critical Care Fellow [x]dimension warehouse supervisor []CRISTO reflects my history, exam, and [...] members and physicians, excluding procedures. [facility] Progress Note Nephrology following for ESRD. Events over night: Doing well-Overnight -HD did well. Patient also received non-urgent HD yesterday afternoon (on schedule). BP (!) 164/69 Pulse 87 Temp 36.8 C (98.2 F) Resp 17 Ht 1.626 m (5' 4") Wt 53.1 kg (117 lb 1 oz) [...] today did well Please message me through EP[employer] chat with any questions or concerns. Sean Castaneda MD 01/22/2024 4:22 PM [facility] [address], [address] [place] [address] Office: [phone] ICU Transfer Checklist Transfer Med Reconciliation (resume home meds if able, convert to PO if able) Complete Antibiotics (name, indication, duration, convert to PO if able) None Steroid (indication, duration, convert to PO if able) None Anticipated [place] Medications (ICU initiated) or Dose Changes and [...] for clarifications. ICU Progress Note Name: Apoorva Navarro Cross : 1950(73 y.o.) Date: 01/22/24 Team: MICU Attending: Dr. Schneider Subjective: Hospital Summary: 73 y.o. F with a PMHx significant for ESRD on HD (T//), HTN, hx seizures (not currently on anti-epileptic therapy) who was initially admitted to the [facility] 01/18 for anemia 2/2 descending colonic [...] Normal [] Scar/Lesion/Mass Inspection of teeth/lips/gums Dentition: []Apache Teeth []Dentures Lips/Gums: [x]Intact []Lesion Present Mucosa: [x][place] []Moist []Dry Neck: External Appearance Overall Appearance: [...] within last 24 hours- BMP: Recent Labs 01/20/24 0348 01/21/24 0036 01/22/24 0010 NA 132* 135 133* K 5.3* 4.5 4.8 CL 97* 100 102 CO2 27 26 21* BUN 50* 26* 49* CREATININE 8.34* 4.74* 7.66* CALCIUM 7.2* 7.4* 6.7* MG 2.0 2.0 2.2 PHOS 6.4* 6.4* 5.5* LFTs: Recent Labs 01/19/241746 AST 23 ALT 14 PROT 7.0 ALBUMIN 4.0 BILITOT 0.5 ALKPHOS 88 Glucose: Recent Labs 01/19/24 1747 01/20/248 01/21/24 0036 01/22/24 0010 GLUCOSE 146* 116* 85 78 Procal: No results for input(s): "PROCAL" in the last 72 hours. CBC: Recent [...] not displayed. ABGs: No results for input(s): "PHART", "NIK2AMX", "PO2ART", "ZUW2EUH", "SO2ART", "K2KAZSEO" in the last 72 hours. Lactic Acid: No results for input(s): "LACTATE" in the last 72 hours. INR: Recent [...] COVID19 Legionella Ag: No results found for: "LEGIONELLAPN" Strep Ag: No results for input(s): "STREPPNEUMO" in the last 72 hours. Imaging- CTA [...] PO DVT Prophylaxis: SCDs Disposition: Transfer to [facility] Cosigned by Ronald Schneider DO at 01/22/2024 1:39 PM EDT Associated attestation - Ronald Schneider DO - 01/22/2024 1:39 PM EDT I have personally performed a lhpt-zc-hndr diagnostic evaluation on this patient on date of service 01/22/24. History, labs, imaging studies, and electronic medical record have been reviewed by me. This note documented by the []Critical Care Fellow [x]dimension warehouse supervisor []CRISTO reflects my history, exam, and [...] other team members and physicians, excluding procedures. [facility] Progress Note Nephrology following for ESRD. Events over night: Doing well-Overnight patient required 1 unit pRBCs due to Hgb 6.8. Patient has not had any additional bloody stools since admission. Patient also received non-urgent HD yesterday afternoon (on schedule). BP 129/81 Pulse 90 Temp 37.6 C (99.6 F) (Oral) Resp 19 Ht 1.626 m (5' 4") Wt 51.7 kg (113 lb 15.7 oz) [...] last 7 days Lab Units 01/21/24 0036 01/20/2434701/19/24 1747 SODIUM mmol/L 135 < > 135 [...] 7 days Lab Units 01/21/24 0036 01/20/24 034 MAGNESIUM mg/dL 2.0 2.0 Results from last [...] Castaneda MD 01/21/2024 3:32 PM [facility] [address] [place] [address], [address] [place] [address] Office: [phone] Nutrition Assessment Type and Reason for Visit: [...] loss Fluid Accumulation: No significant fluid accumulation Jackerman Strength: Not Performed Nutrition Assessment: Pt with PMH including ESRD on HD (T//), HTN, Hx seizures presented to [facility] ED 01/19/24 due to 10 [...] always good, describes consuming 5 oz of "protein" daily. She declines Nepro, states "I won't drink it." She is agreeable to trial of Magic Cup once daily. RD also encouraged overall increased PO intake, frequent snacking, and increased protein intake. Estimated Daily Nutrient Needs: Energy Requirements Based On: Kcal/kg Weight Used for Energy Requirements: Current (30-35 kcal/kg) Weight for Energy Calculation (kg): 54.4 kg Total Energy Requirements (kcals/day): 9761-6690 Weight Used for Protein Requirements: Current (1.2-1.4 [...] Ordered Anthropometric Measures: Height: 162.6 cm (5' 4") Current Body Weight: 51.7 kg (113 lb 15.7 oz) Admission Body Weight: 50.3 kg (111 lb) (stated) Usual Body Weight: (112# on 01/08/23, 110# on 08/09/23) [place] Body Weight (lbs) (Calculated): 120 lbs [place] Body Weight (Kg) (Calculated): 55 kg % [place] Body Weight (Calculated): 95 % BMI (kg/m2) [...] inadequate protein-energy intake as evidenced by BMI (oabqrbarvgi-urr-moi) Nutrition Interventions: Food and/or Nutrient Delivery: Continue [...] Nutrition Supplement Maren Warner RD, LD Contact: [phone] or via [employer] chat ICU Progress Note Name: Apoorva Gonzalez [...] Normal [] Scar/Lesion/Mass Inspection of teeth/lips/gums Dentition: []Apache Teeth []Dentures Lips/Gums: []Intact []Lesion Present Mucosa: [][place] []Moist []Dry Neck: External Appearance Overall Appearance: [...] within last 24 hours- BMP: Recent Labs 01/19/24174601/20/2434701/21/24 0036 NA 135 132* 135 K 4.9 [...] 116* 85 Procal: No results for input(s): "PROCAL" in the last 72 hours. CBC: Recent [...] not displayed. ABGs: No results for input(s): "PHART", "POJ3EUC", "PO2ART", "DEO8BLR", "SO2ART", "W6VTSKNG" in the last 72 hours. Lactic Acid: No results for input(s): "LACTATE" in the last 72 hours. INR: Recent [...] COVID19 Legionella Ag: No results found for: "LEGIONELLAPN" Strep Ag: No results for input(s): "STREPPNEUMO" in the last 72 hours. Imaging- CTA [...] follow up / management ESRD on HD (T//) Nephro following for IP dialysis Fall precautions [...] PM EDT I have personally performed a xxcs-gf-aiqb diagnostic evaluation on this patient on date of service 01/21/24. History, labs, imaging studies, and electronic medical record have been reviewed by me. This note documented by the []Critical Care Fellow [x]dimension warehouse supervisor []CRISTO reflects my history, exam, and [...] 73 y.o. female who was admitted to [facility] on 01/18. Pt presented to the ED [...] 73 y.o. female who was admitted to [facility] on 01/19/2024 for GI bleed. - Successful [...] 73 F with PMH ESRD on HD (/), HTN, Hx seizures who presented to [facility] ED 01/18 due to 10 [...] index is 19.56 kg/m . I/O: 01/18 0700 - 01/19 0659 In: 430 Out: - [...] Normal [] Scar/Lesion/Mass Inspection of teeth/lips/gums Dentition: []Apache Teeth []Dentures Lips/Gums: []Intact []Lesion Present Mucosa: [][place] []Moist []Dry Neck: External Appearance Overall Appearance: [...] 146* 116* Procal: No results for input(s): "PROCAL" in the last 72 hours. CBC: Recent Labs 01/19/24174601/19/249 01/20/2434701/20/24 0958 WBC 15.9* -- 20.1* -- HGB 7.7* 9.5* 8.5* 7.9* HCT 24.4* 28.4* 24.9* 23.4* PLT 465* -- 285 -- MCV 93.5 -- 89.2 -- RDW 16.7* -- 15.6* -- ABGs: No results for input(s): "PHART", "IVD9CMJ", "PO2ART", "CMA7JBF", "SO2ART", "Z1TAYOWF" in the last 72 hours. Lactic Acid: No results for input(s): "LACTATE" in the last 72 hours. INR: Recent [...] COVID19 Legionella Ag: No results found for: "LEGIONELLAPN" Strep Ag: No results for input(s): "STREPPNEUMO" in the last 72 hours. Imaging- CTA abdomen pelvis 10/16 Impression Descending colon active bleeding. An element [...] Leukocytosis Trend: 15.9> 20.1 ESRD, on HD (/) Nephro consulted for IP dialysis Presyncope 2/2 [...] --change PO keppra to IV while NPO. MASTER LAY OUT SPECIALIST: LILLIE Preferred Method of Communication/Reaching: EPIC. The above physician should be contacted w/ questions/concerns about items being managed by ICU Team. If there are any questions or concerns related to the info in this note please contact the treatment team or the on-call area manager directly. I spent 30 minutes of critical [...] this consult. Signed: Tylor Nelson MD Nephrology [facility] ([facility]) Pager: [phone] Office Office documented in this encounter [facility] 01-25-2024 Plan of care note Problem: Knowledge Deficit Goal: Patient/family/caregiver demonstrates understanding of disease process, treatment plan, medications, and discharge instructions 01/25/20241715 by Lenka Adkins RN Outcome: Adequate for Discharge 01/25/2024 1006 by Lenka Adkins RN Outcome: Progressing Problem: Potential for Compromised Skin Integrity Goal: Skin Integrity is Maintained or Improved 01/25/20241715 by Lenka Adkins RN Outcome: Adequate for Discharge 01/25/2024 1006 by Lenka Adkins RN Outcome: Progressing Goal: Nutritional status is improving 01/25/20241715 by Lenka Adkins RN Outcome: Adequate for Discharge 01/25/2024 100 by Lenka Adkins RN Outcome: Progressing Problem: Urinary Incontinence Goal: Perineal skin integrity is maintained or improved 01/25/20241715 by Lenka Adkins [...] Adkins RN Outcome: Adequate for Discharge 01/25/2024 100 by Lenka Adkins RN Outcome: Progressing Problem: Chronic Conditions and Co-morbidities Goal: Patient's chronic conditions and co-morbidity symptoms are monitored and maintained or improved 01/25/20241715 by Lenka Adkins RN Outcome: Adequate for Discharge 01/25/2024 1006 by Lenka Adkins RN Outcome: Progressing [facility] 01-25-2024 Miscellaneous Notes Problem: Knowledge [...] Outcome: Progressing Goal: Nutritional status is improving 01/25/2024 1716 by Lenka Adkins RN Outcome: [...] adequate comfort level or baseline comfort level 01/25/2024 1716 by Lenka Adkins RN Outcome: Adequate for Discharge 01/25/2024 1006 by Lenka Adkins RN Outcome: Progressing Problem: Safety - Adult Goal: Free from fall injury 01/25/2024 1716 by Lenka Adkins RN Outcome: Adequate for Discharge 01/25/2024 1006 by Lenka Adkins RN Outcome: Progressing Problem: Discharge Planning Goal: Discharge to home or other facility with appropriate resources 01/25/2024 1716 by Lenka Adkins RN Outcome: [...] Please call the Main Endoscopy Dept at [phone] for questions. Report called to CYNTHIA Og on 6W. [facility] Name: Apoorva Gonzalez Procedure Date: 01/25/2024 8:33 AM Gender: Female Date of : 1950 Age: 73 Admit Type: Inpatient Note Status: Finalized Endoscopist: Chrissy Gilman MD, [id number] Procedure: Colonoscopy Indications: Rectal bleeding, Acute post [...] immediate complications. Procedure Code(s): --- Professional --- 39757, Colonoscopy, flexible; diagnostic, including collection of specimen(s) by brushing or washing, when performed (separate procedure) --- Technical --- 99971, Colonoscopy, flexible; diagnostic, including collection of specimen(s) [...] or abscess without bleeding CPT copyright 2021 [employer]. All rights reserved. The codes documented in this report are preliminary and upon hog man review may be revised to meet current [...] overnight, iHD per outpatient schedule (T/H/S at [facility]) sheath to be removed and PT/OT evals pending. DCP-home with no anticipated needs. Length of Stay (Days): 2 GMLOS: 4.5 Care Managment Initial Assessment Date: 01/20/2024 Patient Name: Apoorva Gonzalez : 1950 Patient Information Source of Information: Patient Cognition/Language: WFL - Within Functional Limits Permission given to speak with patient assisted sales representative/caregiver as indicated: Yes Confirmation of Payer with patient/family: Yes Payer Name: [employer] [place]: No Confirmation of Primary Care Physician: Confirmed [...] Living Prescription Coverage: Yes [facility]acy Used[facility] Medication Management: Independent Transportation/Shopping: Independent Transportation Mode: Car Needs Assistance with Transportation at Discharge: No Meal Preparation: Independent Laundry/Cleaning: Independent Finances/Bill Paying: Independent Communication: Independent Types of Care Services/Equipment Utilized Care Services: Dialysis Type: Hemo Dialysis Provider Name/Location: [facility] Dialysis Schedule: Transportation to Dialysis: drives [...] ride home and denies discharge needs. Christine Herstich, RN documented in this encounter [facility] 01-25-2024 Hospital Discharge instructions Leticia Collier MD - 01/25/2024 5:14 PM EDT No nsaids,no seeds, avoid constipation Leticia Collier MD - 01/25/2024 5:03 PM EDT Up as able Leticia Collier MD - 01/25/2024 5:03 PM EDT Soft diet documented in this encounter [facility] 01-25-2024 Hospital course Narrative Discharge Summary Apoorva [...] therapy) who was initially admitted to the [facility] 01/18 for anemia 2/2 descending colonic [...] without complication. Patient transferred out of ICU 10/20 . Pt hb dropped received prbc transfusion. [...] Medications These medications were sent to [id number] - [place], [place] - [address] [place] [address] polyethylene glycol (PEG) 3350 17 g packet DIET: Adult diet Dysphagia - Soft and Bite Sized; Low Potassium (Less than 3000 mg/day) ACTIVITY: No restriction. COMPLEXITY OF FOLLOW UP: [] Moderate Complexity: follow up within 7-14 calendar days (78672) [] Severe Complexity: follow up within 7 calendar days (70038) FOLLOW UP TESTING, PENDING RESULTS OR REFERRALS AT TRANSITIONAL CARE VISIT: [] Yes [] No PENDING STUDIES: DISPOSITION: Home FACILITY/HOME CARE AGENCY NAME: Follow up with [facility] [place] [address] Follow up cbc in 2 days [...] 01/25/2024, 5:06 PM documented in this encounter [facility] 01-25-2024 Nurse Note Patient Name: Apoorva Gonzalez Patient : 1950 Acct: [id number] Date of Admission: 01/19/2024 Room/Bed: [facility] B Code Status: Full Code [...] - Before each treatment: Dialysis Machine No.: [id number] RO Machine Number: [id number] Dialyzer Lot No.: [id number] Tubing Lot Number: [id number] All Connections Secure: Yes Venous Parameters Set: Yes Arterial Parameters Set: Yes NS Bag: Yes Saline Line Double Clamped: Yes Dialyzer: Nipro Prime Volume (mL): 200 mL RO Machine Number: [id number] RO Machine Log Sheet Completed: Yes Machine Alarm Self Test: Completed, Passed (1250) (01/25/24 1254) Air Foam Detector: Tested, Proper Function, pH Reading Extracorporeal Circuit Tested for Integrity: Yes Machine Conductivity: 13.6 Manual Conductivity: 13.6 Machine Ph: 7 Manual Ph: 7.4 Bleach Test (Neg): Yes Bath Temperature: 36 C (96.8 F) Conductivity Meter Serial #: [id number] Machine Functioning Alarm Free? Yes Dialysis Bath: K+ (Potassium): 2 Ca+ (Calcium): 2.5 Na+ (Sodium): 137 HCO3 (Bicarb): 32 Bicarbonate Concentrate Lot No.: [id number] Acid Concentrate Lot No.: [id number] Chlorine Testing - Before each treatment and every 4 hours: Time On: 1258 Time Off: 155 Treatment Goal: 3 Weight Height: 162.6 cm (5' 4") (01/25/24826) Weight: 52.2 kg (115 lb) (01/25/24826) [...] 99 % -- -- 01/25/24 1613 (!) 169/74 36.7 C (98 F) -- 95 -- [...] 90 18 100 % 1.626 m (5' 4") 52.2 kg (115 lb) 01/25/24 0700 137/66 [...] Tools: Explanation Response to Education: Verbalized Understanding [facility] 01-25-2024 Nurse Note Patient Name: Apoorva Gonzalez Patient : 1950 Acct: [id number] Date of Admission: 01/19/2024 Room/Bed: [facility] B Code Status: Full Code [...] - Before each treatment: Dialysis Machine No.: [id number] RO Machine Number: [id number] Dialyzer Lot No.: [id number] Tubing Lot Number: [id number] All Connections Secure: Yes Venous Parameters Set: Yes Arterial Parameters Set: Yes NS Bag: Yes Saline Line Double Clamped: Yes Dialyzer: Nipro Prime Volume (mL): 200 mL RO Machine Number: [id number] RO Machine Log Sheet Completed: Yes Machine Alarm Self Test: Completed, Passed (1250) (01/25/24 1254) Air Foam Detector: Tested, Proper Function, pH Reading Extracorporeal Circuit Tested for Integrity: Yes Machine Conductivity: 13.6 Manual Conductivity: 13.6 Machine Ph: 7 Manual Ph: 7.4 Bleach Test (Neg): Yes Bath Temperature: 36 C (96.8 F) Conductivity Meter Serial #: [id number] Machine Functioning Alarm Free? Yes Dialysis Bath: K+ (Potassium): 2 Ca+ (Calcium): 2.5 Na+ (Sodium): 137 HCO3 (Bicarb): 32 Bicarbonate Concentrate Lot No.: [id number] Acid Concentrate Lot No.: [id number] Chlorine Testing - Before each treatment and every 4 hours: Time On: 1259 Time Off: 1559 Treatment Goal: 3 Weight Height: 162.6 cm (5' 4") (01/25/24826) Weight: 52.2 kg (115 lb) (01/25/24826) [...] 90 18 100 % 1.626 m (5' 4") 52.2 kg (115 lb) 01/25/24 0700 137/66 [...] in right leg/hip area) Provider Name: Dr. Dalring Provider Role: Resident Method of Communication: Secure [...] Education: Verbalized Understanding Patient arrived from room [facility], Dr. Suárez in to speak with the [...] message with any questions. Radha Lopes RN, [facility] Patient Name: Apoorva Gonzalez Patient : 1950 Acct: [id number] Date of Admission: 01/19/2024 Room/Bed: T1-126/T1-126 A [...] (0) 3 Regular None (Room air) Clear [place] Warm;Dry Good Soft;Rounded Active Other (Comment) None [...] 01/22/20249 HCT 24.3 (L) 01/22/20249 PLT 292 01/22/20240 NA 133 (L) 01/22/20249 K 4.8 01/22/20249 CL 102 01/22/20249 CO2 21 (L) 01/22/20249 BUN 49 (H) 01/22/20249 CREATININE 7.66 (H) 01/22/20249 CALCIUM 6.7 (L) 01/22/20249 PHOS 5.5 (H) 01/22/20249 IV Drips and Rate/Dose Safety - Before each treatment: Dialysis Machine No.: [id number] RO Machine Number: [id number] Dialyzer Lot No.: [id number] Tubing Lot Number: [id number] All Connections Secure: Yes Venous Parameters Set: Yes Arterial Parameters Set: Yes NS Bag: Yes Saline Line Double Clamped: Yes Dialyzer: Nipro Prime Volume (mL): 200 mL RO Machine Number: [id number] RO Machine Log Sheet Completed: Yes Machine Alarm Self Test: Completed, Passed (01/22/241536) Air Foam Detector: pH Reading Extracorporeal Circuit Tested for Integrity: Yes Machine Conductivity: 13.7 Manual Conductivity: 13.8 Machine Ph: 7 Manual Ph: 7.6 Bleach Test (Neg): Yes Bath Temperature: 36 C (96.8 F) Conductivity Meter Serial #: [id number] Machine Functioning Alarm Free? Yes Dialysis Bath: K+ (Potassium): 2 Ca+ (Calcium): 2.5 Na+ (Sodium): 137 HCO3 (Bicarb): 32 Bicarbonate Concentrate Lot No.: [id number] Acid Concentrate Lot No.: [id number] Chlorine Testing - Before each treatment and every 4 hours: Time On: 1515 Time Off: 184 Treatment Goal: 0-3 liters uf as tolerated, keeping SBP >100 Weight Height: 162.6 cm (5' 4") (01/21/2447) Weight: 53.1 kg (117 lb 1 oz) [...] Name: Apoorva Gonzalez Patient : 1950 Acct: [id number] Date of Admission: 01/19/2024 Room/Bed: T1-126/T1-126 A [...] (0) 3 Regular None (Room air) Clear [place] Warm;Dry;No swelling Soft Active -- -- -- [...] - Before each treatment: Dialysis Machine No.: [id number] RO Machine Number: [id number] Dialyzer Lot No.: [id number] Tubing Lot Number: [id number] All Connections Secure: Yes Venous Parameters Set: Yes Arterial Parameters Set: Yes NS Bag: Yes Saline Line Double Clamped: Yes Dialyzer: Nipro Prime Volume (mL): 200 mL RO Machine Number: [id number] RO Machine Log Sheet Completed: Yes Machine Alarm Self Test: Completed, Passed (3145) (01/20/24 1445) Air Foam Detector: pH Reading, Proper Function, Tested Extracorporeal Circuit Tested for Integrity: Yes Machine Conductivity: 13.8 Manual Conductivity: 13.7 Machine Ph: 7 Manual Ph: 7 Bleach Test (Neg): Yes Bath Temperature: 36 C (96.8 F) Conductivity Meter Serial #: [id number] Machine Functioning Alarm Free? Yes Dialysis Bath: K+ (Potassium): 2 Ca+ (Calcium): 2.5 Na+ (Sodium): 137 HCO3 (Bicarb): 32 Chlorine Testing - Before each treatment and every 4 hours: Time On: 151 Time Off: 1814 Treatment Goal: 3L Weight Height: 162.6 cm (5' 4") (01/19/24 1659) Weight: 51.7 kg (113 lb [...] F) -- 108 -- -- -- 01/20/24 181 148/62 -- -- 108 -- -- -- [...] -- -- 94 22 100 % -- 01/19/240 139/73 -- -- 95 17 100 % [...] vitals (Patient's BP dropped to 66/40 (47), transplant coordinator immediately stopped pulling fluid. BP started coming back up. Patient also became nauseated, dizzy, and having abdominal cramping. Dr. Richardson to see patient.) Provider Name: Dr. Richardson Provider Role: Resident Method of Communication: Call Response: En route Notification Time: 1635 Shift Event: Fall Reason for Communication: Abnormal vitals (Patient's BP dropped to 66/40 (47), transplant coordinator immediately stopped pulling fluid. BP started coming [...] monitors were placed. documented in this encounter [facility] 01-25-2024 Plan of care note Problem: Problem Interventions Goal: Assess Nutritional Intake Outcome: Progressing Problem: Pain - Adult Goal: Verbalizes/displays adequate comfort level or baseline comfort level Outcome: Progressing Problem: Discharge Planning Goal: Discharge to home or other facility with appropriate resources Outcome: Progressing [facility] 01-25-2024 Note Formatting of this n ote might be different from the original. POST ENDOSCOPY PROCEDURE TRANSFER REPORT Physician: Procedure completed: colonoscopy Specimens obtained: n/a Medications administered: see anesthesia note Findings: see physician's note Complications: n/a Please call the Main Endoscopy Dept at [phone] for questions. Report called to CYNTHIA Og on 6W. [facility] 01-25-2024 Note Formatting of this n ote might be different from the original. POST ENDOSCOPY PROCEDURE TRANSFER REPORT Physician: Procedure completed: colonoscopy Specimens obtained: n/a Medications administered: see anesthesia note Findings: see physician's note Complications: n/a Please call the Main Endoscopy Dept at [phone] for questions. Report called to CYNTHIA Og on 6W. [facility] 01-25-2024 Note Formatting of this n ote might be different from the original. [facility]: Apoorva Gonzalez Procedure Date: 01/25/2024 8:33 AM Gender: Female Date of : 1950 Age: 73 Admit Type: Inpatient Note Status: Finalized Endoscopist: Chrissy Gilman MD, [id number] Procedure: Colonoscopy Indications: Rectal bleeding, Acute post [...] immediate complications. Procedure Code(s): --- Professional --- 15322, Colonoscopy, flexible; diagnostic, including collection of specimen(s) by brushing or washing, when performed (separate procedure) --- Technical --- 70451, Colonoscopy, flexible; diagnostic, including collection of specimen(s) [...] or abscess without bleeding CPT copyright 2021 [employer]. All rights reserved. The codes documented in this report are preliminary and upon hog man review may be revised to meet current compliance requirements. Chrissy Gilman MD 01/25/2024 10:02:22 AM This report has been signed electronically. Number of Addenda: 0 Note Initiated On: 01/25/2024 8:33 AM [employer] Phone: 01-25-2024 Note Formatting of this n ote might be different from the original. [facility] Name: Apoorva Gonzalez Procedure Date: 01/25/2024 8:33 AM Gender: Female Date of : 1950 Age: 73 Admit Type: Inpatient Note Status: Finalized Endoscopist: Chrissy Gilman MD, [id number] Procedure: Colonoscopy Indications: Rectal bleeding, Acute post [...] immediate complications. Procedure Code(s): --- Professional --- 63841, Colonoscopy, flexible; diagnostic, including collection of specimen(s) by brushing or washing, when performed (separate procedure) --- Technical --- 39463, Colonoscopy, flexible; diagnostic, including collection of specimen(s) [...] or abscess without bleeding CPT copyright 2021 [employer]. All rights reserved. The codes documented in this report are preliminary and upon hog man review may be revised to meet current compliance requirements. Chrissy Gilman MD 01/25/2024 10:02:22 AM This report has been signed electronically. Number of Addenda: 0 Note Initiated On: 01/25/2024 8:33 AM T [facility] [employer] Work Phone: 01-25-2024 Plan of care note [...] Goal: Free from fall injury Outcome: Progressing [facility] 01-24-2024 Note Formatting of this n ote might be different from the original. Spoke with Dr Collier-patients admitting team-ordered patient to have 10mg hydralazine q6 for SBP>160 T [facility] 01-24-2024 Note Formatting of this n ote might be different from the original. Spoke with Dr Collier-patients admitting team-ordered patient to have 10mg hydralazine q6 for SBP>160 T [facility] 01-24-2024 Note Formatting of this n ote might be different from the original. Dr Glynn paged regarding post procedure BP's. [facility] 01-24-2024 Note Formatting of this n ote might be different from the original. Dr Glynn paged regarding post procedure BP's. [facility] 01-24-2024 Nurse Note Patient arrived from room [facility], Dr. Suárez in to speak with the patient regarding mesenteric embo, consent obtained. Patient was placed supine on exam table prepped and draped in sterile fashion. Telemetry monitors placed, conscious sedation administered. Patient tolerated procedure well. Transfer back to room. [facility] 01-24-2024 Note Formatting of this n ote [...] notified. PARK Baker CNP 01/24/2024 1:51 PM [employer] Phone: 01-24-2024 Note Formatting of this n [...] notified. PARK Baker CNP 01/24/2024 1:51 PM [employer] Phone: 01-24-2024 Plan of care note Problem: Pain - Adult Goal: Verbalizes/displays adequate comfort level or baseline comfort level Outcome: Progressing Problem: Safety - Adult Goal: Free from fall injury Outcome: Progressing Problem: Chronic Conditions and Co-morbidities Goal: Patient's chronic conditions and co-morbidity symptoms are monitored and maintained or improved Outcome: Progressing T [facility] 01-24-2024 Note Formatting of this n ote might be different from the original. Chart reviewed. Patient transferred from ICU to med/surg floor 01/22. +increased bloody bowel movements over night with Hgb 6.4 this AM. Patient received 1U PRBC. Nuclear med bleeding scan today. Current discharge plan is home once medically stable. TCC to continue to follow. T [facility] 01-24-2024 Note Formatting of this n ote might be different from the original. Chart reviewed. Patient transferred from ICU to med/surg floor 01/22. +increased bloody bowel movements over night with Hgb 6.4 this AM. Patient received 1U PRBC. Nuclear med bleeding scan today. Current discharge plan is home once medically stable. TCC to continue to follow. T [facility] 01-24-2024 Nurse Note Wound Care consulted for Pressure Injury Prevention. Pt's Arnol= 22, pt is no longer at risk. Skin Care Precaution order set in place. Dietitian consult in place. Will continue to follow peripherally. Please voicera or secure chat message with any questions. Radha Lopes RN, CN [facility] 01-23-2024 Plan of care note [...] Interventions Goal: Assess Nutritional Intake Outcome: Progressing [facility] 01-23-2024 Plan of care note Problem: Potential for Compromised Skin Integrity Goal: Skin Integrity is Maintained or Improved Outcome: Progressing Problem: Potential for Compromised Skin Integrity Goal: Nutritional status is improving Outcome: Progressing Problem: Urinary Incontinence Goal: Perineal skin integrity is maintained or improved Outcome: Progressing T [facility] 01-23-2024 Consult note Associated Order (s): IP [...] 40 mg, IntraVENous, BID AC, Dora Diego, DO polyethylene glycol (PEG) 3350 (Miralax) packet [...] Date Chronic kidney disease (CKD) Hemodialysis patient ([facility]/HCC) (HCC) History of blood transfusion 02/27/2022 Hypertension Seizure ([facility]) Past Surgical History: Social History Socioeconomic History [...] (98.4 F) (Temporal) Resp 20 Ht 5' 4" (1.626 m) Wt 117 lb 1 oz [...] 6.7* 7.6* PT/INR: No results for input(s): "INR" in the last 72 hours. Radiologic Review [...] Jo MD at 01/24/2024 11:46 AM EDT [facility] 01-23-2024 Consult note Associated Order (s): IP [...] Date Chronic kidney disease (CKD) Hemodialysis patient ([facility]/HCC) (HCC) History of blood transfusion 02/27/2022 Hypertension Seizure (HCC) Past Surgical History: Social History Socioeconomic History [...] (98.4 F) (Temporal) Resp 20 Ht 5' 4" (1.626 m) Wt 117 lb 1 oz [...] 6.7* 7.6* PT/INR: No results for input(s): "INR" in the last 72 hours. Radiologic Review [...] Order(s): IP CONSULT TO NEPHROLOGY [facility] [address] [place] [address] Consult Note Patient's Name: Apoorva [...] place. Patient is TTS HD patient at [facility], with Dr. Meza as outpatient biztalk architect. Patient denied SOB. Past Medical History: Diagnosis [...] (Temporal) Resp 18 Ht 1.626 m (5' 4") Wt 51.7 kg (113 lb 15.7 oz) SpO2 100% BMI 19.56 kg/m NAD Was alert No significant lower extremity pitting edema appreciated Labs: Recent Labs 01/19/24174601/19/249 01/20/24347 WBC 15.9* -- 20.1* HGB 7.7* 9.5* 8.5* HCT 24.4* 28.4* 24.9* MCV 93.5 -- 89.2 PLT 465* -- 285 Recent Labs 01/19/24174601/20/24347 NA 135 132* K 4.9 5.3* CL 92* 97* CO2 30 27 GLUCOSE 146* 116* PHOS -- 6.4* MG -- 2.0 BUN 47* 50* CREATININE 7.70* 8.34* CALCIUM 8.7 7.2* Ionized Calcium: No components found for: "IONCA" Magnesium: Lab Results Component Value Date MG [...] as documented in his note. Please call [phone] or message me through [employer] with any questions or concerns. Images from the original note were not included. Internal Medicine: MICU Initial Consult Name: Apoorva Gonzalez : 1950(73 y.o.) Date: 01/20/24 Attending: Dr. Delgado Subjective: Chief Complaint: Rectal bleeding HPI: Apoorva Gonzalez is a 73 y.o. F with a PMHx significant for ESRD on HD (T//), HTN, Hx seizures, who presented to [facility] ED on 01/19/2024 due to [...] begun to change her diet and had "eaten beef jerky for the first time 2 weeks prior". Ever since eating her beef jerky, she [...] Date Chronic kidney disease (CKD) Hemodialysis patient ([facility]) ([facility]) Wednesday, , Wednesday History of blood transfusion 02/27/2022 Hypertension Seizure ([facility]) Developed seizure-like activity on 02/24 during hospital [...] F) Resp 13 Ht 1.626 m (5' 4") Wt 50.3 kg (111 lb) SpO2 100% [...] Normal [] Scar/Lesion/Mass Inspection of teeth/lips/gums Dentition: []Apache Teeth []Dentures Lips/Gums: [x]Intact []Lesion Present Mucosa: [x][place] [x]Moist []Dry Neck: External Appearance Overall Appearance: [...] Ischemia: []Present [x]Absent Infection: []Present [x]Absent Extremities NADERSON Equally: Except ([]RUE []RLE []LUE []LLE) Strength/Tone: [...] GLUCOSE 146* Procal: No results for input(s): "PROCAL" in the last 72 hours. CBC: Recent Labs 01/19/24 1747 WBC 15.9* HGB 7.7* HCT 24.4* PLT 465* MCV 93.5 RDW 16.7* ABGs: No results for input(s): "PHART", "UIA4LTA", "PO2ART", "IWL4PHZ", "SO2ART", "L0NDDBGT" in the last 72 hours. Lactic Acid: No results for input(s): "LACTATE" in the last 72 hours. INR: Recent [...] COVID19 Legionella Ag: No results found for: "LEGIONELLAPN" Strep Ag: No results for input(s): "STREPPNEUMO" in the last 72 hours. Imaging- CTA [...] ESRD on iHD, HTN who presented to [facility] ED with complaints of BRBPR. [...] family and physicians. documented in this encounter [facility] 01-23-2024 Plan of care note The patient is Moderately Stable - Low risk of patient condition declining or worsening [facility] 01-22-2024 Nurse Note Patient Name: Apoorva Gonzalez Patient : 1950 Acct: [id number] Date of Admission: 01/19/2024 Room/Bed: T1126/[facility] A Code Status: DNR-CCA Allergies: No Known [...] (0) 3 Regular None (Room air) Clear [place] Warm;Dry Good Soft;Rounded Active Other (Comment) None [...] - Before each treatment: Dialysis Machine No.: [id number] RO Machine Number: [id number] Dialyzer Lot No.: [id number] Tubing Lot Number: [id number] All Connections Secure: Yes Venous Parameters Set: Yes Arterial Parameters Set: Yes NS Bag: Yes Saline Line Double Clamped: Yes Dialyzer: Nipro Prime Volume (mL): 200 mL RO Machine Number: [id number] RO Machine Log Sheet Completed: Yes Machine Alarm Self Test: Completed, Passed (01/22/24 1537) Air Foam Detector: pH Reading Extracorporeal Circuit Tested for Integrity: Yes Machine Conductivity: 13.7 Manual Conductivity: 13.8 Machine Ph: 7 Manual Ph: 7.6 Bleach Test (Neg): Yes Bath Temperature: 36 C (96.8 F) Conductivity Meter Serial #: [id number] Machine Functioning Alarm Free? Yes Dialysis Bath: K+ (Potassium): 2 Ca+ (Calcium): 2.5 Na+ (Sodium): 137 HCO3 (Bicarb): 32 Bicarbonate Concentrate Lot No.: [id number] Acid Concentrate Lot No.: [id number] Chlorine Testing - Before each treatment and every 4 hours: Time On: 1515 Time Off: 184 Treatment Goal: 0-3 liters uf as tolerated, keeping SBP >100 Weight Height: 162.6 cm (5' 4") (01/21/24 0947) Weight: 53.1 kg (117 lb [...] -- 97 -- 100 % -- 01/22/24 181 (!) 165/73 -- -- 92 -- 100 % -- 01/22/24 1800 154/72 -- -- 91 -- 100 % -- 01/22/24 174 (!) 162/82 -- -- 89 -- 100 % -- 01/22/24 1730 160/69 -- -- 87 -- 100 % -- 01/22/24 1715 147/70 -- -- 98 -- 100 % -- 01/22/24 1700 160/75 -- -- 85 -- 100 % -- 01/22/24 164 145/84 -- -- 88 -- 100 % [...] Tools: Explanation Response to Education: Verbalized Understanding [facility] 01-22-2024 Plan of care note Problem: Knowledge [...] Interventions Goal: Assess Nutritional Intake Outcome: Progressing T [facility] 01-21-2024 Plan of care note Problem: [...] Interventions Goal: Assess Nutritional Intake Outcome: Progressing [facility] 01-21-2024 Note Formatting of this n ote might be different from the original. Care Management Progress Note Patient remains in CTV ICU with GI bleed/acute blood anemia. VSS, on RA, in NSR on tele, transfused PRBC again overnight, iHD per outpatient schedule (T/H/S at [facility]) sheath to be removed and PT/OT evals pending. DCP-home with no anticipated needs. Length of Stay (Days): 2 GMLOS: 4.[address] [facility] 01-21-2024 Note Formatting of this n ote might be different from the original. Care Management Progress Note Patient remains in CTV ICU with GI bleed/acute blood anemia. VSS, on RA, in NSR on tele, transfused PRBC again overnight, iHD per outpatient schedule (T/H/S at [facility]) sheath to be removed and PT/OT evals pending. DCP-home with no anticipated needs. Length of Stay (Days): 2 GMLOS: 4.[address] [facility] 01-20-2024 Nurse Note Patient Name: Apoorva Gonzalez Patient : 1950 Acct: [id number] Date of Admission: 01/19/2024 Room/Bed: T1-126/T1-126 A [...] (0) 3 Regular None (Room air) Clear [place] Warm;Dry;No swelling Soft Active -- -- -- [...] - Before each treatment: Dialysis Machine No.: [id number] RO Machine Number: [id number] Dialyzer Lot No.: [id number] Tubing Lot Number: [id number] All Connections Secure: Yes Venous Parameters Set: Yes Arterial Parameters Set: Yes NS Bag: Yes Saline Line Double Clamped: Yes Dialyzer: Nipro Prime Volume (mL): 200 mL RO Machine Number: [id number] RO Machine Log Sheet Completed: Yes Machine Alarm Self Test: Completed, Passed (1445) (01/20/24 1445) Air Foam Detector: pH Reading, Proper Function, Tested Extracorporeal Circuit Tested for Integrity: Yes Machine Conductivity: 13.8 Manual Conductivity: 13.7 Machine Ph: 7 Manual Ph: 7 Bleach Test (Neg): Yes Bath Temperature: 36 C (96.8 F) Conductivity Meter Serial #: [id number] Machine Functioning Alarm Free? Yes Dialysis Bath: K+ (Potassium): 2 Ca+ (Calcium): 2.5 Na+ (Sodium): 137 HCO3 (Bicarb): 32 Chlorine Testing - Before each treatment and every 4 hours: Time On: 1514 Time Off: 1814 Treatment Goal: 3L Weight Height: 162.6 cm (5' 4") (01/19/24 1659) Weight: 51.7 kg (113 lb 15.7 oz) (01/20/24 0700) BMI (Calculated): 19.55 (01/20/24 0700) 1st check: less than 0.1 ppm at: [...] mmHg 50 600 Yes pt resting sleeping 01/20/241814 -- -- -- -- -- -- -- tx complete Vital Signs Patient Vitals for the past 24 hrs: BP Temp Temp src Pulse Resp SpO2 Weight 01/20/24 1829 130/81 36.9 C (98.5 F) -- 108 -- -- -- 01/20/241814 148/62 -- -- 108 -- -- -- [...] -- 94 22 100 % -- 01/19/24 231 139/73 -- -- 95 17 100 % [...] -- -- 98 17 100 % -- 01/19/24 2220 (!) 155/80 -- -- 97 12 100 % -- 01/19/242219 (!) 153/80 -- -- 98 19 100 % -- 01/19/240 (!) 146/87 -- -- 99 22 100 [...] vitals (Patient's BP dropped to 66/40 (47), transplant coordinator immediately stopped pulling fluid. BP started coming back up. Patient also became nauseated, dizzy, and having abdominal cramping. Dr. Richardson to see patient.) Provider Name: Dr. Richardson Provider Role: Resident Method of Communication: Call Response: En route Notification Time: 1635 Shift Event: Fall Reason for Communication: Abnormal vitals (Patient's BP dropped to 66/40 (47), transplant coordinator immediately stopped pulling fluid. BP started coming [...] Tools: Explanation Response to Education: Verbalized Understanding [facility] [employer] 01-20-2024 Note Formatting of this n ote might be different from the original. Care Managment Initial Assessment Date: 01/20/2024 Patient Name: Apoorva Gonzalez : 1950 Patient Information Source of Information: Patient Cognition/Language: WFL - Within Functional Limits Permission given to speak with patient assisted sales representative/caregiver as indicated: Yes Confirmation of Payer with patient/family: Yes Payer Name: [facility] Medicare : No Confirmation of Primary Care [...] Living Prescription Coverage: Yes [facility] Medication Management: Independent Transportation/Shopping: Independent Transportation Mode: Car Needs Assistance with Transportation at Discharge: No Meal Preparation: Independent Laundry/Cleaning: Independent Finances/Bill Paying: Independent Communication: Independent Types of Care Services/Equipment Utilized Care Services: Dialysis Type: Hemo Dialysis Provider Name/Location: [facility] Dialysis Schedule: /WED Transportation to Dialysis: [...] and denies discharge needs. Christine Ribeiro RN [facility] 01-20-2024 Note Formatting of this n ote might be different from the original. Care Managment Initial Assessment Date: 01/20/2024 Patient Name: Apoorva Gonzalez : 1950 Patient Information Source of Information: Patient Cognition/Language: WFL - Within Functional Limits Permission given to speak with patient assisted sales representative/caregiver as indicated: Yes Confirmation of Payer with patient/family: Yes Payer Name: [employer] [place]: No Confirmation of Primary Care Physician: Confirmed [...] Living Prescription Coverage: Yes [facility] Used[facility] Medication Management: Independent Transportation/Shopping: Independent Transportation Mode: Car Needs Assistance with Transportation at Discharge: No Meal Preparation: Independent Laundry/Cleaning: Independent Finances/Bill Paying: Independent Communication: Independent Types of Care Services/Equipment Utilized Care Services: Dialysis Type: Hemo Dialysis [facility] Schedule: /WED Transportation to Dialysis: drives [...] and denies discharge needs. Christine Ribeiro RN [facility] 01-20-2024 Consult note Associated Order (s): IP CONSULT TO NEPHROLOGY [facility] [address] [place] [address] Consult Note Patient's Name: Apoorva [...] place. Patient is TTS HD patient at [facility], with Dr. Meza as outpatient biztalk architect. Patient denied SOB. Past Medical History: Diagnosis Date Chronic kidney disease (CKD) Hemodialysis patient ([facility]/HCC) (HCC) Wednesday, , Wednesday History of blood transfusion 02/27/2022 Hypertension Seizure ([facility]) Developed seizure-like activity on 02/24 during hospital [...] (Temporal) Resp 18 Ht 1.626 m (5' 4") Wt 51.7 kg (113 lb 15.7 oz) SpO2 100% BMI 19.56 kg/m NAD Was alert No significant lower extremity pitting edema appreciated Labs: Recent Labs 01/19/24174601/19/24234801/20/24347 WBC 15.9* -- 20.1* HGB 7.7* 9.5* 8.5* HCT 24.4* 28.4* 24.9* MCV 93.5 -- 89.2 PLT 465* -- 285 Recent Labs 01/19/24174601/20/24347 NA 135 132* K 4.9 5.3* CL 92* 97* CO2 30 27 GLUCOSE 146* 116* PHOS -- 6.4* MG -- 2.0 BUN 47* 50* CREATININE 7.70* 8.34* CALCIUM 8.7 7.2* Ionized Calcium: No components found for: "IONCA" Magnesium: Lab Results Component Value Date MG [...] as documented in his note. Please call [phone] or message me through [employer] with any questions or concerns. [facility] 01-20-2024 Consult note Formatting of th is [...] (T//S), HTN, Hx seizures, who presented to [facility] ED on 01/19/2024 due to [...] begun to change her diet and had "eaten beef jerky for the first time 2 weeks prior". Ever since eating her beef jerky, she [...] 10 mg by mouth daily. 03/02/22 03/02/23 Evan Joshua, TOOL ROOM ATTENDANT - 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 atorvastatin (Lipitor) 40 MG tablet Take 1 tablet (40 mg) by mouth Nightly. 03/02/22 03/02/23 Evan Joshua APRN - [facility] calcium acetate (Phoslo) 667 MG tablet Take 1 tablet by mouth in the morning and 1 tablet at noon and 1 tablet in the evening. Take with meals. 07/01/22 Historical Provider, cholecalciferol (Vitamin D-3) 125 MCG (5000 UT) capsule Take 5,000 Units by mouth daily. Historical Provider, levETIRAcetam (Keppra) 500 MG tablet Take 1 tablet (500 mg) by mouth daily. 03/02/22 08/26/22 Evan Joshua APRN - [facility] omega-3 (Fish Oil) 1000 MG capsule Take 1,000 mg by mouth daily. Historical Provider, Thiamine HCl (vitamin B-1) 250 MG tablet Take 250 mg by mouth daily. Historical Provider, VITAMIN E PO Take by mouth daily. Historical Provider, Objective: Oxygen Delivery: VITALS: BP 139/71 Pulse 93 Temp 37.2 C (98.9 F) Resp 13 Ht 1.626 m (5' 4") Wt 50.3 kg (111 lb) SpO2 100% [...] Normal [] Scar/Lesion/Mass Inspection of teeth/lips/gums Dentition: []Apache Teeth []Dentures Lips/Gums: [x]Intact []Lesion Present Mucosa: [x][place] [x]Moist []Dry Neck: External Appearance Overall Appearance: [...] GLUCOSE 146* Procal: No results for input(s): "PROCAL" in the last 72 hours. CBC: Recent Labs 01/19/241746 WBC 15.9* HGB 7.7* HCT 24.4* PLT 465* MCV 93.5 RDW 16.7* ABGs: No results for input(s): "PHART", "GXT8VFC", "PO2ART", "WOT6DBQ", "SO2ART", "P4QCHGFR" in the last 72 hours. Lactic Acid: No results for input(s): "LACTATE" in the last 72 hours. INR: Recent Labs 01/19/24 175 INR 1.0 Cardiac Injury Profile: Recent Labs [...] COVID19 Legionella Ag: No results found for: "LEGIONELLAPN" Strep Ag: No results for input(s): "STREPPNEUMO" in the last 72 hours. Imaging- CTA [...] ESRD on iHD, HTN who presented to [facility] ED with complaints of BRBPR. [...] other team members, [facility]'s family and physicians. [facility] Nurse Note Patient tolerated the procedure well. Transfer to T126 following the procedure. [facility] 01-19-2024 History and physical note Attending History [...] History of blood transfusion 02/27/2022 Hypertension Seizure ([facility]) Developed seizure-like activity on 02/24 during hospital [...] C (98.9 F) Resp 13 Ht 5' 4" (1.626 m) Wt 111 lb (50.3 kg) [...] Behavior normal. DATA: CBC: Recent Labs 01/19/24 1747 WBC 15.9* RBC 2.61* HGB 7.7* HCT 24.4* MCV 93.5 RDW 16.7* PLT 465* BMP: Recent Labs 01/19/24 1747 NA 135 K 4.9 CL 92* CO2 30 BUN 47* CREATININE 7.70* GLUCOSE 146* CALCIUM 8.7 ANIONGAP 13 LIVER PROFILE: Recent Labs 01/19/24 1747 AST 23 ALT 14 BILITOT 0.5 ALKPHOS 88 PROT 7.0 PT/INR: Recent Labs 01/19/24 1758 PROTIME 11.0 INR 1.0 CARDIAC ENZYMES: Recent Labs 01/19/24 1747 TROPONINI <0.012 Procalcitonin: No results found for: "PROCAL" Urine Culture: No results found for this or any previous visit. COVID-19 PCR: No results for input(s): "COVID19" in the last 72 hours. I reviewed: [...] Primary Emergency Contact: CassieMayur Mobile Relation: Grandchild Jessica Murphy DO Division of Hospitalist Medicine [place] [place] [employer] Work Phone: 01-19-2024 History and physical note Attending [...] C (98.9 F) Resp 13 Ht 5' 4" (1.626 m) Wt 111 lb (50.3 kg) [...] TROPONINI <0.012 Procalcitonin: No results found for: "PROCAL" Urine Culture: No results found for this or any previous visit. COVID-19 PCR: No results for input(s): "COVID19" in the last 72 hours. I reviewed: [...] Primary Emergency Contact: Mayur Matthews Mobile Relation: Yung Jessica Murphy DO Division of Hospitalist Medicine [place] [place] documented in this encounter [facility] 01-19-2024 Nurse Note Patient arrived from the emergency department for mesenteric angiogram with possible intervention. Dr. Whatleyu in to speak with the patient regarding the procedure, and consent was obtained. Patient's lab values and allergies were reviewed. Patient was placed supine on exam table, prepped and draped in sterile fashion. Telemetry monitors were placed. [facility] 01-19-2024 Emergency department Note Patient in no apparent distress. Respirations equal and nonlabored. Lala Ni RN 01/19/242215 [facility] 01-19-2024 Emergency department Note Patient in no [...] blood tranfusion Tameka Camejo RN 01/19/24 1905 Trauma float at bedside for ultrasound IV [...] ED provider notified Tyra Garcia RN 01/19/24 2900 EMERGENCY DEPARTMENT ENCOUNTER Pt Name: Apoorva Gonzalez [...] History of blood transfusion 02/27/2022 Hypertension Seizure ([facility]) Developed seizure-like activity on 02/24 during hospital admission SURGICAL HISTORY Past Surgical History: Procedure Laterality Date AV FISTULA PLACEMENT Left 08/07/2022 IR CVC TUNNELED DIALYSIS CATHETER PLACEMENT 02/27/2022 IR CVC TUNNELED CATHETER PLACEMENT 02/27/2022 Candis Andrade MD [facility] SPECIAL PROCEDURES CURRENT MEDICATIONS Previous [...] Response: Oriented Best Motor Response: Follows commands [place] Coma Scale Score: 15 PHYSICAL EXAM ED [...] AND HEMATOCRIT, BLOOD PREPARE RBC PRODUCT CODE [id number] Unit Number [id number] Unit ABO O Unit RH POS Crossmatch interpretation COMP Dispense Status Transfused Blood Expiration Date Product Blood Type 5100 Unit Volume 300 PRODUCT CODE [id number] Unit Number [id number] Unit ABO O Unit RH POS Crossmatch interpretation COMP Dispense Status Transfused Blood Expiration Date Product Blood Type 5100 Unit Volume 300 All other labs were within normal range or not returned as of this dictation. EMERGENCY DEPARTMENT COURSE and DIFFERENTIAL DIAGNOSIS/MDM: Vitals: Vitals: 01/19/24229901/19/24230401/19/24230901/19/242314 BP: (!) 149/71 (!) 147/82 139/73 139/71 [...] sepsis, or septic shock (If yes use ".sepsiscoremeasure"): FINAL IMPRESSION 1. Gastrointestinal hemorrhage, unspecified gastrointestinal [...] Kaur DO 01/19/242318 documented in this encounter [facility] 01-19-2024 Emergency department Note Patient in IR at this time. Lala Ni RN 01/19/242209 [facility] 01-19-2024 Emergency department Note Patients 15 minute samra for vitals not documented as patient was being transported to IR. Lala Ni RN 01/19/242209 [facility] 01-19-2024 Emergency department Note Second unit of blood started at 600 mLs/hr per Dr Kaur. Pt being transported to IR by CYNTHIA Reeves. Olivia Rodgers RN 01/19/242150 [facility] 01-19-[address] Kaur called IR to do procedure. Blood transfusion going at 300 mLs an hour per Dr Kaur. Pt changed up again and large clots and blood noted. Olivia Rodgers RN 01/19/242126 [facility] 01-19-2024 Emergency department Note Report to Olivia Camejo RN 01/19/241923 [facility] 01-19-2024 Emergency department Note Pt taken to CT scan. Dr Kaur made aware pt had another large passing of blood clots. Order to be received for blood tranfusion Tameka Camejo RN 01/19/24 190 [facility] 01-19-2024 Emergency department Note Trauma float at bedside for ultrasound IV Tameka Camejo RN 01/19/24 1808 [facility] 01-19-2024 Emergency department Note Large clots noted from pts rectum. States she has been bleeding and having clots since this morning. Denies being on a blood thinner. Does not have any abd pain but has pressure when having a bowel movement. Provider called to bedside for assessment Tameka Camejo RN 01/19/24 1740 [facility] 01-19-2024 Emergency department Note Patient was in [...] ED provider notified Tyra Garcia RN 01/19/24 4930 [facility] 01-19-2024 Physician Emergency department Note EMERGENCY DEPARTMENT [...] Date Chronic kidney disease (CKD) Hemodialysis patient ([facility]/HCC) (HCC) Wednesday, , Wednesday History of blood transfusion 02/27/2022 Hypertension Seizure ([facility]) Developed seizure-like activity on 02/24 during hospital [...] Physically Abused: No Sexually Abused: No SCREENINGS [place] Coma Scale Best Eye Response: Spontaneous Best [...] Physician EKG interpretation can be found in [facility] RADIOLOGY (Per Emergency Physician): Interpretation per the [...] AND HEMATOCRIT, BLOOD PREPARE RBC PRODUCT CODE [id number] Unit Number [id number] Unit ABO O Unit RH POS Crossmatch interpretation COMP Dispense Status Transfused Blood Expiration Date Product Blood Type 5100 Unit Volume 300 PRODUCT CODE [id number] Unit Number [id number] Unit ABO O Unit RH POS Crossmatch interpretation COMP Dispense Status Transfused Blood Expiration Date Product Blood Type 5100 Unit Volume 300 All other labs were within normal range or not returned as of this dictation. EMERGENCY DEPARTMENT COURSE and DIFFERENTIAL DIAGNOSIS/MDM: Vitals: Vitals: 01/19/24 2300 01/19/24 23001/19/24230901/19/242314 BP: (!) 149/71 (!) 147/82 139/73 139/71 [...] sepsis, or septic shock (If yes use ".sepsiscoremeasure"): FINAL IMPRESSION 1. Gastrointestinal hemorrhage, unspecified gastrointestinal [...] Kaur DO 01/19/242127 Brown Kaur DO 01/19/242318 [facility] 08-09-2023 Emergency department Note Pt remains in dialysis Regi Galdamez RN 08/09/23 1901 [facility] 08-09-2023 Emergency department Note Pt remains in dialysis Regi Galdamez RN 08/09/23 190 Lab called with potassium 6.1 with no hemolysis, same reported to Dr. Velasquez via secure chat Jenn Adams RN 08/09/23 1650 Pt taken to dialysis Regi Galdamez RN 08/09/23 1638 documented in this encounter [facility] 08-09-2023 Nurse Note Patient Name: Apoorva Gonzalez Patient : 1950 Acct: [id number] Date of Admission: 08/09/2023 Room/Bed: Code Status: [...] Time out performed prior to access at 0437. Report Received from Primary RN at 2598. Primary RN (First Initial, Last Name, Title): [...] Date of Last Dressing Change: na na , [address]?: na Red [...] - Before each treatment: Dialysis Machine No.: [id number] RO Machine Number: [id number] Dialyzer Lot No.: [id number] Tubing Lot Number: [id number] All Connections Secure: Yes Venous Parameters Set: Yes Arterial Parameters Set: Yes NS Bag: Yes Saline Line Double Clamped: Yes Dialyzer: Revaclear 300 Prime Volume (mL): 200 mL RO Machine Number: [id number] RO Machine Log Sheet Completed: Yes Machine Alarm Self Test: Completed, Passed (08/09/23 1615) Air Foam Detector: Tested, Proper Function, pH Reading Extracorporeal Circuit Tested for Integrity: Yes Machine Conductivity: 13.6 Manual Conductivity: 13.6 Manual Ph: 7 Bleach Test (Neg): Yes Bath Temperature: 36 C (96.8 F) Conductivity Meter Serial #: [id number] Machine Functioning Alarm Free? Yes Dialysis Bath: K+ (Potassium): 2 Ca+ (Calcium): 2.5 Na+ (Sodium): 137 HCO3 (Bicarb): 32 Chlorine Testing - Before each treatment and every 4 hours: Time On: 1701 Time Off: 2001 Treatment Goal: 2L (per pt request, states she is only able to handle 2L fluid removal) Weight Height: 162.6 cm (5' 4") (08/09/231542) Weight: 49.9 kg (110 lb) (08/09/231542) BMI [...] off bfr 300 poor art flow. 08/09/23 194 300 mL/min 830 ml/hr -200 mmHg 180 [...] -- -- 91 -- -- -- -- 08/09/231930 91/55 -- -- 86 -- -- -- -- 08/09/231914 (!) 151/74 -- -- 90 -- -- -- -- 08/09/231900 138/78 -- -- 91 -- -- -- -- 08/09/231844 134/72 -- -- 98 -- -- -- -- 05/06/24 1833 (!) 152/77 -- -- 94 -- [...] 93 16 98 % 1.626 m (5' 4") 49.9 kg (110 lb) Post-Dialysis Arterial Catheter [...] Tools: Demonstration Response to Education: Verbalized Understanding T [facility] 08-09-2023 Nurse Note Patient Name: Apoorva Gonzalez Patient : 1950 Acct: [id number] Date of Admission: 08/09/2023 Room/Bed: Code Status: [...] 1655. Report Received from Primary RN at 9310. Primary RN (First Initial, Last Name, Title): [...] - Before each treatment: Dialysis Machine No.: [id number] RO Machine Number: [id number] Dialyzer Lot No.: [id number] Tubing Lot Number: [id number] All Connections Secure: Yes Venous Parameters Set: Yes Arterial Parameters Set: Yes NS Bag: Yes Saline Line Double Clamped: Yes Dialyzer: Revaclear 300 Prime Volume (mL): 200 mL RO Machine Number: [id number] RO Machine Log Sheet Completed: Yes Machine Alarm Self Test: Completed, Passed (08/09/231614) Air Foam Detector: Tested, Proper Function, pH Reading Extracorporeal Circuit Tested for Integrity: Yes Machine Conductivity: 13.6 Manual Conductivity: 13.6 Manual Ph: 7 Bleach Test (Neg): Yes Bath Temperature: 36 C (96.8 F) Conductivity Meter Serial #: [id number] Machine Functioning Alarm Free? Yes Dialysis Bath: K+ (Potassium): 2 Ca+ (Calcium): 2.5 Na+ (Sodium): 137 HCO3 (Bicarb): 32 Chlorine Testing - Before each treatment and every 4 hours: Time On: 1701 Time Off: 2001 Treatment Goal: 2L (per pt request, states she is only able to handle 2L fluid removal) Weight Height: 162.6 cm (5' 4") (08/09/231542) Weight: 49.9 kg (110 lb) (08/09/231542) BMI [...] uf off bfr 300 poor art flow. 05/06/24 1945 300 mL/min 830 ml/hr -200 mmHg [...] -- 92 16 96 % -- -- 08/09/23 194 121/69 -- -- 91 -- -- -- -- 08/09/23 193 91/55 -- -- 86 -- -- -- -- 08/09/23 1915 (!) 151/74 -- -- 90 -- -- [...] 93 16 98 % 1.626 m (5' 4") 49.9 kg (110 lb) Post-Dialysis Arterial Catheter [...] Education: Verbalized Understanding documented in this encounter [facility] 08-09-2023 Emergency department Note Lab called with potassium 6.1 with no hemolysis, same reported to Dr. Velasquez via secure chat Jenn Adams RN 08/09/23 1650 [facility] 08-09-2023 Emergency department Note Pt taken to dialysis Regi Galdamez RN 08/09/23 1638 [facility] 08-09-2023 Consult note Formatting of th is note is different from the original. [facility] [address] [place] [address] Consult Note Patient's Name: Apoorva Gonzalez 4:37 PM 08/09/2023 History of Present Ilness: Apoorva Gonzalez is a 73 y.o. female with hx including ESRD, is TTS HD patient at [facility]. Dr. Meza is outpatient biztalk architect. Was found to have 8.0K on outpatient labwork on 08/06 (likely collected prior to HD that day). Was referred to ER in relation to hyperkalemia. Denied SOB. Past Medical History: Diagnosis Date Chronic kidney disease (CKD) Hemodialysis patient ([facility]/HCC) (HCC) Wednesday, , Wednesday History of blood transfusion 02/27/2022 Hypertension Seizure ([facility]) Developed seizure-like activity on 02/24 during hospital [...] (Tympanic) Resp 16 Ht 1.626 m (5' 4") Wt 49.9 kg (110 lb) SpO2 98% BMI 18.88 kg/m Was alert Labs: No results for input(s): "WBC", "HGB", "HCT", "MCV", "PLT" in the last 72 hours. No results for input(s): "NA", "K", "CL", "CO2", "GLUCOSE", "PHOS", "MG", "BUN", "CREATININE", "CALCIUM", "LABGLOM" in the last 72 hours. No lab exists for component: "CA", "GFRAA" Ionized Calcium: No components found for: "IONCA" Magnesium: No results found for: MG Phosphorus: [...] as documented in his note. Please call [phone] or message me through [employer] with any questions or concerns. [employer] Phone: 05-06-2024 Consult note Formatting of th is note is different from the original. [facility] [address] [place], [place] [id number] Consult Note Patient's Name: Apoorva Gonzalez 4:37 PM 08/09/2023 History of Present Ilness: Apoorva Gonzalez is a 73 y.o. female with hx including ESRD, is TTS HD patient at [facility]. Dr. Meza is outpatient biztalk architect. Was found to have 8.0K on outpatient labwork on 08/06 (likely collected prior to HD that day). Was referred to ER in relation to hyperkalemia. Denied SOB. Past Medical History: Diagnosis Date Chronic kidney disease (CKD) Hemodialysis patient (CMS/HCC) (HCC) Wednesday, , Wednesday History of blood transfusion 02/27/2022 Hypertension Seizure ([facility]) Developed seizure-like activity on 02/24 during hospital [...] (Tympanic) Resp 16 Ht 1.626 m (5' 4") Wt 49.9 kg (110 lb) SpO2 98% BMI 18.88 kg/m Was alert Labs: No results for input(s): "WBC", "HGB", "HCT", "MCV", "PLT" in the last 72 hours. No results for input(s): "NA", "K", "CL", "CO2", "GLUCOSE", "PHOS", "MG", "BUN", "CREATININE", "CALCIUM", "LABGLOM" in the last 72 hours. No lab exists for component: "CA", "GFRAA" Ionized Calcium: No components found for: "IONCA" Magnesium: No results found for: MG Phosphorus: [...] as documented in his note. Please call [phone] or message me through [employer] with any questions or concerns. documented in this encounter [facility] 03-03-2023 Emergency department Note Pt discharged to home alert by CRISTO Rocha, Essie Ward RN 03/03/23 105 [facility] 03-03-2023 Emergency department Note Pt discharged to home alert by CRISTO Rocha Tracey L. Harper, RN 03/03/23 105 Emergency Department Encounter [facility] EMERGENCY DEPT Patient: Apoorva Gonzalez [...] sepsis, or septic shock (If yes use ".sepsiscoremeasure"): no Please see subsequent provider note for [...] for clarification) Balta Wang MD Acute Care [facility] Balta aWng MD 03/03/23 1055 EMERGENCY DEPARTMENT ENCOUNTER Pt [...] Procedures FINAL IMPRESSION 1. ESRD on hemodialysis ([facility]) ([facility]) DISPOSITION Discharge 03/03/2023 10:40:48 AM PATIENT REFERRED TO: Christiano Grove DO [address] [facility] [address] DISCHARGE MEDICATIONS: Discharge Medication List as of [...] Emergency Medicine Provider FREDI Del Angel 03/03/23 1106 documented in this encounter [facility] 03-03-2023 Hospital Discharge instructions FREDI Del Angel [...] or worsening symptoms. documented in this encounter [facility] 03-03-2023 Physician Emergency department Note Emergency Department [...] sepsis, or septic shock (If yes use ".sepsiscoremeasure"): no Please see subsequent provider note for [...] dictating provider for clarification) Balta Wang MD [facility] Balta Wang MD 03/03/23 1055 [employer] Phone: 03-03-2023 Physician Emergency department Note EMERGENCY [...] Date Chronic kidney disease (CKD) Hemodialysis patient ([facility]/HCC) (HCC) Wednesday, , Wednesday History of blood transfusion 02/27/2022 Hypertension Seizure ([facility]) Developed seizure-like activity on 02/24 during hospital [...] Procedures FINAL IMPRESSION 1. ESRD on hemodialysis ([facility]) ([facility]) DISPOSITION Discharge 03/03/2023 10:40:48 AM PATIENT REFERRED TO: Christiano Grove DO [address] [facility] [address] DISCHARGE MEDICATIONS: Discharge Medication List as of [...] Medicine Provider FREDI Del Angel 03/03/23 1108 [facility] 10-01-2022 Emergency department Note Wound care completed. Ordered treatment completed. Patient discharged without any issues. Patient has a copy dc papers and verbalizes understanding. All questions answered. Nickie Pizarro LPN 10/01/22 1405 [facility] 10-01-2022 Emergency department Note Wound care completed. Ordered treatment completed. Patient discharged without any issues. Patient has a copy dc papers and verbalizes understanding. All questions answered. Nickie Pizarro LPN 10/01/22 1405 Emergency Department Encounter [facility] EMERGENCY DEPT Patient: [...] provider for clarification.) Mak Hilario MD Acute [facility] Mak Hilario MD 10/01/221947 Images from [...] TUNNELED CATHETER PLACEMENT 02/27/2022 Candis Andrade MD [facility] SPECIAL PROCEDURES CURRENT MEDICATIONS Previous [...] REFERRED TO: Christiano Grove DO [address] [facility] [address] Schedule an appointment as soon as possible for a visit [facility] EMERGENCY DEPT [address] [place] [phone] Go to If symptoms worsen DISCHARGE [...] signed) Emergency Medicine Provider FREDI Sampson 10/01/22 1346 documented in this encounter [facility] 10-01-2022 Hospital Discharge instructions FREDI Sampson - 10/01/2022 1:44 PM EDT Follow-up your primary care doctor and return to the ER if you experience any worsening symptoms. documented in this encounter [facility] [employer] 10-01-2022 Physician Emergency department Note Emergency Department Encounter [facility] EMERGENCY DEPT Patient: Apoorva Gonzalez [...] for clarification.) Mak Hilario MD [employer] Mak Hilario MD 10/01/221947 [employer] Work Phone: 10-01-2022 Physician Emergency department Note Images [...] Chronic kidney disease (CKD) Hemodialysis patient (CMS/HCC) ([facility]) Wednesday, , Wednesday History of blood transfusion 02/27/2022 Hypertension Seizure ([facility]) Developed seizure-like activity on 02/24 during hospital admission SURGICAL HISTORY Past Surgical History: Procedure Laterality Date AV FISTULA PLACEMENT Left 08/07/2022 IR CVC TUNNELED DIALYSIS CATHETER PLACEMENT 02/27/2022 IR CVC TUNNELED CATHETER PLACEMENT 02/27/2022 Candis Andrade MD [facility] SPECIAL PROCEDURES CURRENT MEDICATIONS Previous [...] Patient agreed this plan was discharged. Apoorva Gnozalez and myself have engaged in Shared Decision [...] REFERRED TO: Christiano Grove DO [address] [facility] [address] Schedule an appointment as soon as possible for a visit [facility] EMERGENCY DEPT [address] [place] [phone] Go to If symptoms worsen DISCHARGE [...] Emergency Medicine Provider FREDI Sampson 10/01/22 1345 [facility] 10-01-2022 Note Formatting of this n ote might be different from the original. nurse Dwain from [facility] called d/t to patient having tunneled dialysis catheter removal on 09-30-22 and c/o "small bubble approx. 2" above insertion site which feels better when she applies pressure". Site is not discolored and no swelling noted per dialysis nurse. I did discuss with Dr. Christian Glynn. Aware to continue to monitor site, if develops fever, purulent drainage, area increases in size, and/or bleeding or bruising to call her physician and/or be seen emergency dept. T [facility] 10-01-2022 Miscellaneous Notes nurse Dwain from [facility] called d/t to patient having tunneled dialysis catheter removal on 09-30-22 and c/o "small bubble approx. 2" above insertion site which feels better when she applies pressure". Site is not discolored and no swelling noted per dialysis nurse. I did discuss with Dr. Christian Glynn. Aware to continue to monitor site, if develops fever, purulent drainage, area increases in size, and/or bleeding or bruising to call her physician and/or be seen emergency dept. documented in this encounter [facility] 09-30-2022 Nurse Note Tunneled HD catheter cleansed with betadine and removed from pt RIJ. 14fr x 24cm. Pt followed breathing instructions and tolerated well. Pressure held x10 min. Discharged home with all belongings, steady, independent gait. [facility] 09-30-2022 Nurse Note Tunneled HD catheter cleansed with betadine and removed from pt RIJ. 14fr x 24cm. Pt followed breathing instructions and tolerated well. Pressure held x10 min. Discharged home with all belongings, steady, independent gait. documented in this encounter [facility] 08-07-2022 Hospital Discharge instructions Arthur Medrano MD [...] questions or concerns! documented in this encounter [facility] 08-07-2022 Attending History and physical note H&P [...] form has been signed. Source Note - PARK Ferrell CNP - 07/10/2022 12:30 PM EDT Images from the original note were not included. Comprehensive PreSurgical History and Physical ? Name: Apoorva Gonzalez : 1950 (Age-72 y.o.) Date of Service: Pt seen/examined on 07/10/2022 Procedure Information Date/Time: 07/17/22 1130 Procedure: LEFT UPPER EXTREMITY ARTERIOVENOUS GRAFT PLACEMENT (Left) Location: [address] Operating Room Surgeons: Raffy Rojas MD Chief Complaint: Dependence on renal dialysis End stage renal disease History Of Present Illness: 72 y.o. female who we are asked to see/evaluate by Dr. Rojas for pre-operative evaluation prior to above procedure . ? Denies history of [place], CHF, TIA, CVA Past Medical History: Past Medical History: No date: Chronic kidney disease (CKD) No date: Hemodialysis patient ([facility]) ([facility]) Comment: Wednesday, , Wednesday02/27/2022: History of blood transfusion No date: Hypertension No date: Seizure ([facility]) Comment: Developed seizure-like activity on 02/24 during hospital admission Past Surgical History: Past Surgical History: 02/27/2022: IR CVC TUNNELED DIALYSIS CATHETER PLACEMENT Comment: IR CVC TUNNELED CATHETER PLACEMENT 02/27/2022 Candis Andrade MD [facility] SPECIAL PROCEDURES Medications Prior to [...] SLEEP REFERRAL PROTOCOL Electronically signed by: Mary Wilkinson APRN - TAMIR Date: 07/10/2022 at 1:05 PM PAT Protocol referenced includes: 1. Anesthesia Lab Protocol Orders 2. Perioperative Cardiovascular Risk Assessment 3. Anesthesia Assessment 4. Pain Assessment and Acute Pain Service Consult (if appropriate) 5. Medical Clearance/Consult from Internal Medicine (IMS) 6. Shower/Wash Order (for designated surgeries) 7. KOREY Screen and Sleep Clinic Referral (if appropriate) [employer] Phone: 08-07-2022 Note Formatting of this n ote might be different from the original. OPERATIVE REPORT DATE OF SERVICE: 08/07/2022 PRE-PROCEDURE DIAGNOSIS: End Stage Renal Disease on Hemodialysis POST-PROCEDURE DIAGNOSIS: As above PROCEDURE PERFORMED: Left upper extremity brachial artery to axillary vein arteriovenous graft placement with 4-7 mm Propaten graft SURGEON: Raffy Rojas MD ASSISTANTS: Kailyn Hodgson APRN-TAMIR and Arthur [...] the left radial pulse remained palpable. Raffy Rojas MD Vascular Surgery [facility] 08-07-2022 Note Formatting of this n ote might be different from the original. OPERATIVE REPORT DATE OF SERVICE: 08/07/2022 PRE-PROCEDURE DIAGNOSIS: End Stage Renal Disease on Hemodialysis POST-PROCEDURE DIAGNOSIS: As above PROCEDURE PERFORMED: Left upper extremity brachial artery to axillary vein arteriovenous graft placement with 4-7 mm Propaten graft SURGEON: Raffy Rojas MD ASSISTANTS: Kailyn Hodgson APRN-TAMIR and Arthur [...] the left radial pulse remained palpable. Raffy Rojas MD Vascular Surgery [facility] 08-07-2022 History and physical note H&P reviewed. [...] form has been signed. Source Note - PAKR Ferrell CNP - 07/10/2022 12:30 PM EDT Images from the original note were not included. Comprehensive PreSurgical History and Physical ? Name: Apoorva Gonzalez : 1950 (Age-72 y.o.) Date of Service: Pt seen/examined on 07/10/2022 Procedure Information Date/Time: 07/17/22 1130 Procedure: LEFT UPPER EXTREMITY ARTERIOVENOUS GRAFT PLACEMENT (Left) Location: [facility] Operating Room Surgeons: Raffy Rojas MD Chief Complaint: Dependence on renal dialysis End stage renal disease History Of Present Illness: 72 y.o. female who we are asked to see/evaluate by Dr. Rojas for pre-operative evaluation prior to above procedure . ? Denies history of [place], CHF, TIA, CVA Past Medical History: Past Medical History: No date: Chronic kidney disease (CKD) No date: Hemodialysis patient ([facility]) ([facility]) Comment: Wednesday, , Wednesday02/27/2022: History of blood transfusion No date: Hypertension No date: Seizure ([facility]) Comment: Developed seizure-like activity on 02/24 during hospital admission Past Surgical History: Past Surgical History: 02/27/2022: IR CVC TUNNELED DIALYSIS CATHETER PLACEMENT Comment: IR CVC TUNNELED CATHETER PLACEMENT 02/27/2022 Candis Andrade MD [facility] SPECIAL PROCEDURES Medications Prior to [...] Referral (if appropriate) documented in this encounter [facility] 08-07-2022 Miscellaneous Notes OPERATIVE REPORT DATE OF SERVICE: 08/07/2022 PRE-PROCEDURE DIAGNOSIS: End Stage Renal Disease on Hemodialysis POST-PROCEDURE DIAGNOSIS: As above PROCEDURE PERFORMED: Left upper extremity brachial artery to axillary vein arteriovenous graft placement with 4-7 mm Propaten graft SURGEON: Raffy Rojas MD ASSISTANTS: Kailyn Hodgson APRN-TAMIR and Arthur [...] the left radial pulse remained palpable. Raffy Rojas MD Vascular Surgery documented in this encounter [facility] 07-17-2022 Telephone encounter Note Patient called in [...] patient. Kailyn has put new orders in [employer] due to case number changed and was cancelled. New updated information has been faxed to [facility] 07-17-2022 Miscellaneous Notes Patient called in today [...] New updated information has been faxed to [employer] . SURGERY: LEFT UPPER EXTREMITY AV GRAFT PLACEMENT DATE OF SURGERY: 07/17/22 11:30 PRE TESTIN07/10/2022 12:30 AUTH #: NAN CARDIAC CLEARANCE POST OP OR OV: 08/03/2022 2:00 MEDS TO HOLD: NONE MEDS TO CONTINUE: ALL documented in this encounter [facility] 07-17-2022 Attending History and physical note I was notified the patient had breakfast this morning prior to arrival. Will cancel case for today and reschedule. The office has been notified and will work to reschedule her surgery. Source Note - Mary Wilkinson APRN - 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 - 07/10/2022 12:30 PM EDT Images from the original note were not included. Comprehensive PreSurgical History and Physical ? Name: Apoorva Gonzalez : 1950 (Age-72 y.o.) Date of Service: Pt seen/examined on 07/10/2022 Procedure Information Date/Time: 07/17/22 1130 Procedure: LEFT UPPER EXTREMITY ARTERIOVENOUS GRAFT PLACEMENT (Left) Location: [facility] OR Operating Room Surgeons: Raffy Rojas MD Chief Complaint: Dependence on renal dialysis End stage renal disease History Of Present Illness: 72 y.o. female who we are asked to see/evaluate by Dr. Rojas for pre-operative evaluation prior to above procedure . ? Denies history of [place], CHF, TIA, CVA Past Medical History: Past Medical History: No date: Chronic kidney disease (CKD) No date: Hemodialysis patient (CMS/HCC) ([facility]) Comment: Wednesday, , Wednesday02/27/2022: History of blood transfusion No date: Hypertension No date: Seizure (HCC) Comment: Developed seizure-like activity on 02/24 during hospital admission Past Surgical History: Past Surgical History: 02/27/2022: IR CVC TUNNELED DIALYSIS CATHETER PLACEMENT Comment: IR CVC TUNNELED CATHETER PLACEMENT 02/27/2022 Candis Andrade MD [facility] SPECIAL PROCEDURES Medications Prior to Admission: Prior [...] Screen and Sleep Clinic Referral (if appropriate) [employer] Phone: 07-17-2022 History and physical note I [...] UPPER EXTREMITY ARTERIOVENOUS GRAFT PLACEMENT (Left) Location: [facility] Operating Room Surgeons: Raffy Rojas MD Chief Complaint: Dependence on renal dialysis End stage renal disease History Of Present Illness: 72 y.o. female who we are asked to see/evaluate by Dr. Rojas for pre-operative evaluation prior to above procedure . ? Denies history of [place], CHF, TIA, CVA Past Medical History: Past Medical History: No date: Chronic kidney disease (CKD) No date: Hemodialysis patient ([facility]) ([facility]) Comment: Wednesday, , Wednesday02/27/2022: History of blood transfusion No date: Hypertension No date: Seizure ([facility]) Comment: Developed seizure-like activity on 02/24 during hospital admission Past Surgical History: Past Surgical History: 02/27/2022: IR CVC TUNNELED DIALYSIS CATHETER PLACEMENT Comment: IR CVC TUNNELED CATHETER PLACEMENT 02/27/2022 Candis Andrade MD [facility] SPECIAL PROCEDURES Medications Prior to [...] by mouth daily. 03/02/22 04/01/22 Evan Joshua APRN - 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 omega-3 (Fish Oil) 1000 MG capsule Take [...] Referral (if appropriate) documented in this encounter [facility] 07-17-2022 Note Formatting of this n ote might be different from the original. Pt ate a crab cake and egg at 0530, Dr Rojas notified, unable to do surgery later. Pt advised that her surgery is cancelled for today and to go home and reschedule for another day. Pt advised to not eat anything at all before next surgery. [facility] 07-17-2022 Note Formatting of this n ote might be different from the original. Pt ate a crab cake and egg at 0530, Dr Rojas notified, unable to do surgery later. Pt advised that her surgery is cancelled for today and to go home and reschedule for another day. Pt advised to not eat anything at all before next surgery. [facility] 07-17-2022 Miscellaneous Notes Pt ate a crab cake and egg at 0530, Dr Rojas notified, unable to do surgery later. Pt advised that her surgery is cancelled for today and to go home and reschedule for another day. Pt advised to not eat anything at all before next surgery. documented in this encounter [facility] [employer] 07-10-2022 Telephone encounter Note Lab called me with a critical lab K 6.6 Patient has ESRD on HD (T--S) and scheduled for HD tomorrow. Advise for patient to go to HD session tomorrow given her elevated K. No need for ED visit at this time. Maria R Greenwood MD Division of Hospitalist Medicine [employer] 7:06 PM 07/10/22 [facility] 07-10-2022 Miscellaneous Notes Lab called me with a critical lab K 6.6 Patient has ESRD on HD (T-TH-S) and scheduled for HD tomorrow. Advise for patient to go to HD session tomorrow given her elevated K. No need for ED visit at this time. Maria R Greenwood MD Division of Hospitalist Medicine [employer] [facility] [employer] 7:06 PM 07/10/22 documented in this encounter [facility] 07-01-2022 Telephone encounter Note SURGERY: LEFT UPPER EXTREMITY AV GRAFT PLACEMENT DATE OF SURGERY: 07/17/22 11:30 PRE TESTIN07/10/2022 12:30 AUTH #: LUIZA CARDIAC CLEARANCE POST OP OR OV: 08/03/2022 2:00 MEDS TO HOLD: NONE MEDS TO CONTINUE: ALL [facility] 06-24-2022 History of Present illness Narrative Vascular [...] difficulty. She had vein mapping performed at [facility]. Past Medical History: Past Medical History: [...] by mouth daily. 03/02/22 04/01/22 Evan Joshua APRN - 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 Allergies: Patient has no known allergies. Social [...] surgery. We will work on scheduling. Raffy Rojas MD Vascular Surgery documented in this encounter [facility] 06-03-2022 Note HNO ID: [id number] Author: RT Austen(Mark) Service: Radiology Author Type: Technologist Type: Progress [...] June 03, 2022 2:29 PM [facility] 06-03-2022 History of Present illness Narrative [...] 2022 2:29 PM documented in this encounter [facility] 12-31-2020 Note HNO ID: [id number] Author: Philly Michael RN Service: ? Author Type: Registered Nurse Type: Progress Notes Filed: 12/31/2020 10:58 AM Note Text: Per insurance note on 12/31/2020: Called to conduct pt interview and she asked me to reschedule her appt/ PRE KIDNEY TXP". I called and left a detailed vm for Ms Gonzalez informing her this is her second cancellation and I will rescheduled one more time. If she cancels for the 3rd time she will closed and not be able to come back for at least a years time. Phone number provided. [facility] Evaluation note Diagnosis ESRD (end stage renal disease) (HCC)- Primary End stage renal disease [facility] Diagnosis S/P arteriovenous (AV) graft placement- Primary documented in this encounter [facility]* Diagnosis End stage renal disease (HCC) End stage renal disease documented in this encounter [facility]* Diagnosis Hematoma- Primary Contusion of unspecified site Bleeding from wound documented in this encounter [facility]* Diagnosis End stage renal disease (HCC)- Primary End stage renal disease End stage renal disease (HCC) End stage renal disease [facility]* Diagnosis Encounter for screening mammogram for malignant neoplasm of breast [facility] Diagnosis ESRD on hemodialysis (CMS/HCC) (HCC)- Primary documented in this encounter [facility]* Diagnosis Hyperkalemia- Primary Hyperpotassemia [facility]* Diagnosis End stage renal disease (HCC)- Primary End stage renal disease [facility] [place]* Diagnosis Gastrointestinal hemorrhage, unspecified gastrointestinal hemorrhage type- Primary Gastrointestinal hemorrhage, unspecified gastrointestinal hemorrhage type Anemia, unspecified type Anemia Unspecified anemia documented in this encounter [facility]* Diagnosis Hypertension, unspecified type- Primary [facility] Diagnosis Pulmonary edema, acute (HCC)- Primary Unspecified acute edema of lung Pulmonary edema, acute (HCC) Unspecified acute edema of lung [facility] Diagnosis Shortness of breath- Primary Shortness of breath Acute pulmonary edema (HCC) Unspecified acute edema of lung Hyperkalemia Hyperpotassemia [facility] [place] [facility]* Diagnosis Encounter for screening mammogram for malignant neoplasm of breast [facility]* Diagnosis Myoclonus- Primary Fall, initial encounter Hyperkalemia Hyperpotassemia documented in this encounter [facility]* Diagnosis Adverse effect of drug, initial encounter- Primary [facility] [place] [facility]* Diagnosis Hematoma- Primary Contusion of unspecified site Hematoma Contusion of unspecified site documented in this encounter [facility] Work Phone: Evaluation note* Diagnosis Sepsis, due to unspecified organism, unspecified whether acute organ dysfunction present (HCC)- Primary Sepsis, due to unspecified organism, unspecified whether acute organ dysfunction present (HCC) Altered mental status, unspecified altered mental status type Buttock wound, left, initial encounter Seizures (HCC) Other convulsions ESRD (end stage renal disease) (HCC) End stage renal disease Dialysis patient (HCC) Renal dialysis status [facility] Diagnosis Wound dehiscence- Primary Disruption of external operation (surgical) wound Wound dehiscence Disruption of external operation (surgical) wound Anemia due to other cause, not classified End stage congestive heart failure (HCC) Seizures (HCC) Other convulsions Pressure ulcer of left buttock, stage 3 (HCC) End stage congestive heart failure (HCC) [facility] Diagnosis End stage congestive heart failure (HCC)- Primary ESRD (end stage renal disease) (HCC) End stage renal disease [facility] Diagnosis Anemia of chronic disease- Primary Anemia of other chronic disease [facility] [place] [facility] Diagnosis ESRD (end stage renal disease) on dialysis (HCC)- Primary End stage renal disease [facility] Diagnosis ESRD (end stage renal disease) on dialysis (HCC)- Primary End stage renal disease [facility] Diagnosis ESRD (end stage renal disease) on dialysis (HCC) End stage renal disease Preop examination Unspecified pre-operative examination [facility] [place] [facility]* Diagnosis Fall, initial encounter- Primary Fall, initial encounter Closed head injury, initial encounter Pressure injury of left buttock, stage 3 (HCC) Fall (on)(from) sidewalk curb, initial encounter Moderate malnutrition (CMS/HCC) ([facility]) [facility] [place] [facility]* Diagnosis Transient alteration of awareness- Primary [facility]* Attachments The following attachments cannot be sent through Care Everywhere. * Hyperkalemia ([place]) [facility]* Attachments The following attachments cannot be sent through Care Everywhere. * High Blood Pressure Discharge Instructions ([place]) documented in this [facility] Discharge instructions* Attachments The following attachments cannot be sent through Care Everywhere. * Anemia of Inflammation (Anemia of Chronic Disease) ([place]) documented [facility]* Attachments The following attachments cannot be sent through Care Everywhere. * Preparing for Hemodialysis ([place]an) * Hemodialysis ([place]an) documented in this [facility] for visit Narrative* Auth/Cert (Routine) Specialty Diagnoses / Procedures Referred By Gustavo t Referred To Contact Diagnoses Hematoma Fluid Collection Procedures No [place] [address] Department [place] [address] Phone: tel: fax: [facility] [phone] [place] [address] Phone: tel: Referral ID Status Reason Start Date Expiration Date Visits Re quested Visits Authorized [id number] 1 1 [facility] Work Phone: Reason for visit Narrative* Imaging (Routine) - Closed Specialty Diagnoses / Procedures Referred By Contac t Referred To Contact Cardiology Diagnoses ESRD (end stage renal disease) on dialysis (HCC) Preop examination Procedures Vascular US vessel map for hemodialysis access arm bilateral Raffy Rojas MD [address] [place] [address] Phone: tel: fax: Referral ID Status Reason Start Date Expiration Date Visits Re quested Visits Authorized [id number] Closed 11/28/2024 11/28/2026 1 1 [facility] Advance Directives No Advanced Directives Records FoundDocuments on File Type Date Recorded Patient Plate Corrector Expl anation Advance Directives and Living Will Power of It Admin Documents on File Type Date Recorded Patient Plate Corrector Expl anation Advance Directive(s) 10/25/2019 7:08 AM [...] Documents on File Type Date Recorded Patient Plate Corrector Expl anation Advance Directives and Livin g Will 10/01/2022 1:19 PM Power of It Admin 10/01/2022 1:19 PM Latest Code Status on File Code Status Date Activated Date Inactivated Comments Full Code 08/07/2022 8:15 AM 08/08/2022 8:14 AM Code Status History Code Status Date Activated Date Inactivated Comments Full Code 07/17/2022 9:55 AM 07/17/2022 12:44 PM Full Code 02/24/2022 5:00 PM 03/02/2022 7:07 PM Documents on File Type Date Recorded Patient Plate Corrector Expl anation Advance Directives and Livin g Will 10/01/2022 1:19 PM Power of It Admin 10/01/2022 1:19 PM Date Activated Date Inactivated [...] Documents on File Type Date Recorded Patient Plate Corrector Expl anation DNR (Do Not Resuscitate) 01/26/2024 11:24 AM Advance Directives and Livin g Will 10/01/2022 1:19 PM Power of It Admin 10/01/2022 1:19 PM Date Activated Date Inactivated [...] Healthcare Agent Relationshi p Communication Mayur Matthews [facility] Care Agent Healthcare Agents on File Name Relationship Healthcare Agent Relationshi p Communication Mayur Matthews [facility] Agent Healthcare Agents on File Name Relationship Healthcare Agent Relationshi p Communication Mayur Matthews [facility] Agent Healthcare Agents on File Name Relationship Healthcare Agent Relationshi p Communication Mayur Matthews [facility] Agent Date Activated Date Inactivated Comments 08/31/2024 12:12 AM Question Answer Comments Plan of Care: Code Status Discussion Completed Decision Maker: Patient Documents on File Type Date Recorded Patient Plate Corrector Expl anation Power of It Admin 10/24/2024 11:41 AM Power of It Admin 10/24/2024 11:24 AM DNR (Do Not Resuscitate) 01/26/2024 11:24 AM Advance Directives and Living Will 10/01/2022 1:19 PM Power of It Admin 10/01/2022 1:19 PM DNR (Do Not Resuscitate) 11/11/2024 12:26 PM [place] DNR Form Date Activated Date Inactivated Comments [...] Healthcare Agent Relationshi p Communication Deshawn Crystal [facility] Agent ([place]amolino) Documents on File Type Date Recorded Patient Plate Corrector Expl anation Power of It Admin 10/24/2024 11:41 AM Power of It Admin 10/24/2024 11:24 AM DNR (Do Not Resuscitate) 01/26/2024 11:24 AM Advance Directives and Living Will 10/01/2022 1:19 PM Power of It Admin 10/01/2022 1:19 PM DNR (Do Not Resuscitate) 11/15/2024 10:00 AM [place] DNR Form DNR (Do Not Resuscitate) 11/11/2024 12:26 PM [place] DNR Form Date Activated Date Inactivated Comments [...] Relationship Healthcare Agent Relationshi p Communication [facility] Healthcare Agents on File Name Relationship Healthcare Agent Relationshi p Communication Deshawn Crystal [facility] Agent Documents on File Type Date Recorded Patient Plate Corrector Expl anation Power of It Admin 10/24/2024 11:24 AM DNR (Do Not Resuscitate) 01/26/2024 11:24 AM Advance Directives and Living Will 10/01/2022 1:19 PM Power of It Admin 10/01/2022 1:19 PM DNR (Do Not Resuscitate) 11/15/2024 10:00 AM [place] DNR Form DNR (Do Not Resuscitate) 11/11/2024 12:26 PM [place] DNR Form Date Activated Date Inactivated Comments [...] Healthcare Agent Relationshi p Communication Deshawn Crystal [facility] Agent Documents on File Type Date Recorded Patient Plate Corrector Expl anation Power of It Admin 10/24/2024 11:24 AM DNR (Do Not Resuscitate) 01/26/2024 11:24 AM Advance Directives and Living Will 10/01/2022 1:19 PM Power of It Admin 10/01/2022 1:19 PM DNR (Do Not Resuscitate) 11/15/2024 10:00 AM [place] DNR Form DNR (Do Not Resuscitate) 11/11/2024 12:26 PM [place] DNR Form Healthcare Agents on File Name Relationship Healthcare Agent Relationshi p Communication Deshawn Crystal [facility] Care Agent Healthcare Agents on File Name Relationship Healthcare Agent Relationshi p Communication Deshawn Crystal [facility] Agent Healthcare Agents on File Name Relationship Healthcare Agent Relationshi p Communication Deshawn [facility] Agent (Datamolino) Documents on File Type Date Recorded Patient Plate Corrector Expl anation Power of It Admin 10/24/2024 11:24 AM DNR (Do Not Resuscitate) 01/26/2024 11:24 AM Advance Directives and Living Will 10/01/2022 1:19 PM Power of It Admin 10/01/2022 1:19 PM DNR (Do Not Resuscitate) 12/20/2024 2:49 PM [place] DNR Form DNR (Do Not Resuscitate) 11/15/2024 10:00 AM [place] DNR Form DNR (Do Not Resuscitate) 11/11/2024 12:26 PM [place] DNR Form Date Activated Date Inactivated Comments [...] Relationship Healthcare Agent Relationshi p Communication Deshawn [facility] Agent ([place]) Documents on File Type Date Recorded Patient Plate Corrector Expl anation DNR (Do Not Resuscitate) 12/21/2024 11:18 AM Power of It Admin 10/24/2024 11:24 AM DNR (Do Not Resuscitate) 01/26/2024 11:24 AM Advance Directives and Living Will 10/01/2022 1:19 PM Power of It Admin 10/01/2022 1:19 PM DNR (Do Not Resuscitate) 12/20/2024 2:49 PM [place] DNR Form DNR (Do Not Resuscitate) 11/15/2024 10:00 AM [place] DNR Form DNR (Do Not Resuscitate) 11/11/2024 12:26 PM [place] DNR Form Date Activated Date Inactivated Comments [...] Agents on File Name Relationship Healthcare Agent [facility] p Communication Deshawn Arredondo [facility] Care Agent Assessments Diagnosis Chronic kidney disease, stage [...] tablet, ORAL, EVERY 4 HOURS NEEDED, Starting Wed10/25/19 at 0917, Until Diane 10/26/19 at 0305, Moderate Pain (4-6) - Enteral, Severe Pain (7-10) - Enteral, Give 1 tab for moderate pain Give 2 tabs for severe pain, Reason for Referral Specialty Diagnoses / Procedures Referred By Gustavo jones Referred To Contact Arthur Medrano MD [address] [place] [address] Referral ID Status Reason Start Date Expiration Date Visits Re quested Visits Authorized [id number] Closed 1 1 Specialty Diagnoses / Procedures Referred By Gustavo jones Referred To Contact Radiology Diagnoses End stage renal disease (HCC) Procedures IR CVC tunneled catheter removal Radha Meza MD [address] [address] Referral ID Status Reason Start Date Expiration Date Visits Re quested Visits Authorized [id number] Closed 09/28/2022 03/27/2023 1 1 Specialty Diagnoses / Procedures Referred By Contac t Referred To Contact Radiology Diagnoses End stage renal disease (HCC) Procedures IR fistulagram Radha Meza MD [address] [place] [address] Referral ID Status Reason Start Date Expiration Date V isits Requested Visits Authorized [id number] Pending Review 06/25/2023 06/24/2024 1 1 Additional Source Comments Source Comments (unrecognize d section and content) In the event this informatio n is protected by the Federal Confidentiality of Alcohol and Drug Abuse Patient Records regulations: The Federal rules restrict any use of the information to criminally investigate or prosecute any alcohol or drug abuse patient.[facility] the event this information is protected by the Federal Confidentiality of Alcohol and Drug Abuse Patient Records regulations: The Federal rules restrict any use of the information to criminally investigate or prosecute any alcohol or drug abuse patient.[facility] the event this information is protected by the Federal Confidentiality of Alcohol and Drug Abuse Patient Records regulations: The Federal rules restrict any use of the information to criminally investigate or prosecute any alcohol or drug abuse patient.[facility] Hospital[facility] the event this information is protected by the Federal Confidentiality of Alcohol and Drug Abuse Patient Records regulations: The Federal rules restrict any use of the information to criminally investigate or prosecute any alcohol or drug abuse patient.[facility] INFORMATION SOURCE (unrecogn ized section and content) DATE CREATED AUTHOR 11/03/2019 [facility] DATE CREATED AUTHOR AUTHOR'S ORGANIZ ATION 11/29/2020 [facility] DATE CREATED AUTHOR AUTHOR'S ORGANIZ ATION 09/12/2021 [facility] DATE CREATED AUTHOR AUTHOR'S ORGANIZ ATION 06/05/2022 [facility] DATE CREATED AUTHOR AUTHOR'S ORGANIZ ATION 09/09/2024 [facility] DATE CREATED AUTHOR AUTHOR'S ORGANIZ ATION 09/16/2024 [facility] DATE CREATED AUTHOR AUTHOR'S ORGANIZ ATION 01/11/2025 [employer] [facility] DATE CREATED AUTHOR AUTHOR'S ORGANIZ ATION 01/15/2025 [facility] Reason for Visit (unrecogniz ed section and content) Status Reason Specialty Diagnoses / Procedures Referred By Contact Referred To Contact Diagnoses Chronic kidney disease (CKD), stage IV (severe) (HCC) Procedures RENAL BX. PERCUTANEOUS BIOPSY KIDNEY PERCUTANEOUS [place] Interventional Radiology [address] [place] [address] Reason Comments New Patient Eval for perm access placement; VM 06/03/22 Specialty Diagnoses / Procedures Referred By Contac t Referred To Contact Diagnoses Dependence on renal dialysis (HCC) End stage renal disease (HCC) Dependence on renal dialysis (CMS/HCC) (HCC) [Z99.2] End stage renal disease (HCC) [N18.6] Procedures KS CRTJ ARVEN FSTL XCP DIR ARVEN ANAST NONAUTOG GRF LEFT UPPER EXTREMITY ARTERIOVENOUS GRAFT PLACEMENT Raffy Rojas MD [address] [place] [address] [facility] Main Or [address] [place] [address] Referral ID Status Reason Start Date Expiration Date Visits Re quested Visits Authorized [id number] 1 1 Reason Onset Date Comments Surgery Scheduling 07/01/2022 Referral ID Status Reason Start Date Expiration Date Visits Re quested Visits Authorized [id number] 1 1 Specialty Diagnoses / Procedures Referred By Contac t Referred To Contact Radiology Diagnoses End stage renal disease (HCC) Procedures IR CVC tunneled catheter removal Radha Meza MD [address] [place] [address] Referral ID Status Reason Start Date Expiration Date Visits Re quested Visits Authorized [id number] Closed 09/28/2022 03/27/2023 1 1 Reason Comments Abnormal Labs Pt sent here from di alysis for elevated K+. Had dialysis yesterday. Reason Comments Rectal Bleeding Pt presents to ED fo r rectal bleeding. Pt reports onset today. Pt reports dark and bright red blood in stool. Pt reports severe abdominal cramping right before a bowel movement. Specialty Diagnoses / Procedures Referred By Contac t Referred To Contact Diagnoses Gastrointestinal hemorrhage, unspecified gastrointestinal hemorrhage type Procedures [id number] Gabriel Delgado MD [address] [place] [address] Phone: tel: fax: [facility] Cardiac Thoracic Vascular Intensive Care Unit CTV ICU T1 [address] [place] [address] Phone: tel: Referral ID Status Reason Start Date Expiration Date Visits Re quested Visits Authorized [id number] 1 1 Reason Comments Hypertension Treated with medicat ion, pt took it this morning and was high. Pt was able to ambulate without difficulty. Alert and oriented x's 4 Reason Comments Shortness of Breath Pt arrived SOB, miss ed HD today. EMS found pt 50% on RA. Denies chest pain. Pt is T/Th/Sa HD Specialty Diagnoses / Procedures Referred By Contac t Referred To Contact Diagnoses Pulmonary edema, acute (HCC) Procedures . Radha Kevin, [address] [place] [address] Phone: tel: fax: [facility] EMERGENCY DEPT [address] [place] [address] Phone: tel: Referral ID Status Reason Start Date Expiration Date Visits Re quested Visits Authorized [id number] 1 1 Reason Comments Shortness of Breath Patient presents to ED via triage with SOB. Patient states she's missed a couple dialysis tx. Specialty Diagnoses / Procedures Referred By Gustavo t Referred To Contact Diagnoses Shortness of breath Hyperkalemia Acute pulmonary edema (HCC) Procedures . John Mayes DO [address] [place] [address] Phone: tel: fax: [facility] Cardiac Progressive Care Unit PCU 5W [address] [place] [address] Phone: tel: Referral ID Status Reason Start Date Expiration Date Visits Re quested Visits Authorized [id number] 1 1 Reason Comments Fall Pt presents to ED af ter a fall. Pt family member states she had a "jerking" movement and began to fall when he was able to catch her. Pt denies hitting head or LOC. Pt states she is on dialysis and goes 3 times a week. Pt states she has been having "jerking" movements since yesterday evening. Reason Comments Altered Mental Status Pt from office aft er angiogram of dialysis cath where she went unresponsive during procedure. Pt received 25mcg fentynal and 0.5 versed and 2 narcan prior to arrival. Pt responding to verbal stimuli and denies complains Reason Comments Altered Mental Status Pt came [facility]. Squad was called for weakness and altered mental status. Pt is not diabetic. Gcs 14 due to confusion a&ox2. Pt bgl was 99. Pt fistula is in left arm . Specialty Diagnoses / Procedures Referred By Gustavo jones Referred To Contact Diagnoses Buttock wound, left, initial encounter Altered mental status, unspecified altered mental status type Sepsis, due to unspecified organism, unspecified whether acute organ dysfunction present (HCC) Procedures .. Loni Zambrano MD [address] [place] [address] Phone: tel: fax: [facility] Intensive Care Unit ICU [address] [place] [address] Phone: tel: Referral ID Status Reason Start Date Expiration Date Visits Re quested Visits Authorized [id number] 1 1 Reason Comments Wound Check EMS from [place] f or bleeding fistula in left upper arm. DC from [facility] to [place] previously. Specialty Diagnoses / Procedures Referred By Gustavo t Referred To Contact Diagnoses Wound dehiscence Procedures .. Edson Graham MD [address] [place] [address] Phone: tel: fax: [facility] Cardiac Vascular Progressive Care Unit PCC 1C [address] [place] [address] Phone: tel: Referral ID Status Reason Start Date Expiration Date Visits Re quested Visits Authorized 1 1 Reason Comments Other C/O low hgb from [facility] 6.5 this am during dialysis [...] thinners. Specialty Diagnoses / Procedures Referred By Gustavo t Referred To Contact Diagnoses Closed head injury, initial encounter Fall, initial encounter Fall (on)(from) sidewalk curb, initial encounter Procedures . Magalys Can MD [address] [place] [address] Phone: tel: fax: [facility] [address] [place] [address] Phone: tel: Referral ID Status Reason Start Date Expiration Date Visits Re quested Visits Authorized [id number] 1 1 Reason Comments Altered Mental Status Per [place] Mateo gerber, pt was altered last night. Sent to ED for eval. Pt denies any complaints. Care Teams (unrecognized sec tion and content) Ocular Care Aide Relationship Specialty Start Date End Date Christiano Grove, DO [address] [facility] [address] [place] [address] PCP - General Family Medicine 10/25/19 Ocular Care Aide Relationship Specialty Start Date End Date Christiano Grove, DO [address] [facility] [address] [place] [address] PCP - General Family Medicine 10/25/19 Ocular Care Aide Relationship Specialty Start Date End Date Christiano Grove, DO [address] [place] [address] PCP - General 09/17/16 Carlos Manuel Wang MD [address] [place] [address] Nephrology 06/24/22 Raffy Rojas MD [address] [place] [address] Consulting Physician Vascular Surgery 06/24/22 [facility] 02/03/22 Ocular Care Aide Relationship Specialty Start Date End Date Christiano Grove, DO [address] [place] [address] PCP - General 09/17/16 Carlos Manuel Wang MD [address] [place] [address] Nephrology 06/24/22 Raffy Rojas MD [address] [place] [address] Consulting Physician Vascular Surgery 06/24/22 [facility] 02/03/22 Ocular Care Aide Relationship Specialty Start Date End Date Christiano Grove, DO [address] [place] [address] PCP - General 09/17/16 Carlos Manuel Wang MD [address] [place] [address] Nephrology 06/24/22 Raffy Rojas MD [address] [place] [address] Consulting Physician Vascular Surgery 06/24/22 [facility] 02/03/22 Ocular Care Aide Relationship Specialty Start Date End Date Christiano Grove, DO [address] [place] [address] PCP - General 09/17/16 Carlos Manuel Wang MD [address] [place] [address] Nephrology 06/24/22 Raffy Rojas MD [address] [place] [address] Consulting Physician Vascular Surgery 06/24/22 [facility] 02/03/22 Ocular Care Aide Relationship Specialty Start Date End Date Christiano Grove, DO [address] [place] [address] PCP - General 09/17/16 Carlos Manuel Wang MD [address] [place] [address] Nephrology 06/24/22 Raffy Rojas MD [address] [place] [address] Consulting Physician Vascular Surgery 06/24/22 [facility] 02/03/22 Ocular Care Aide Relationship Specialty Start Date End Date Christiano Grove DO [address] [place] [address] PCP - General 09/17/16 Carlos Manuel Wang MD [address] [place] [address] Nephrology 06/24/22 Raffy Rojas MD [address] [place] [address] Consulting Physician Vascular Surgery 06/24/22 [facility] 02/03/22 Ocular Care Aide Relationship Specialty Start Date End Date Christiano Grove DO [address] [place] [address] PCP - General 09/17/16 Carlos Manuel Wang MD [address] [place] [address] Nephrology 06/24/22 Raffy Rojas MD [address] [place] [address] Consulting Physician Vascular Surgery 06/24/22 [facility] 02/03/22 Ocular Care Aide Relationship Specialty Start Date End Date Christiano Grove DO [address] [place] [address] PCP - General 09/17/16 Carlos Manuel Wang MD [address] [place] [address] Nephrology 06/24/22 Raffy Rojas MD [address] [place] [address] Consulting Physician Vascular Surgery 06/24/22 [facility] [employer] [facility] 02/03/22 Ocular Care Aide Relationship Specialty Start Date End Date Christiano Grove DO [address] [place] [address] PCP - General 09/17/16 Carlos Manuel Wang MD [address] [place] [address] Nephrology 06/24/22 Raffy Rojas MD [address] [place] [address] Consulting Physician Vascular Surgery 06/24/22 [employer] [facility] 02/03/22 Ocular Care Aide Relationship Specialty Start Date End Date Christiano Grove DO [address] [place] [address] PCP - General 09/17/16 Carlos Manuel Wang MD [address] [place] [address] Nephrology 06/24/22 Raffy Rojas MD [address] [place] [address] Consulting Physician Vascular Surgery 06/24/22 [facility] 02/03/22 Ocular Care Aide Relationship Specialty Start Date End Date Christiano Grove DO [address] [place] [address] PCP - General 09/17/16 Carlos Manuel Wang MD [address] [place] [address] Nephrology 06/24/22 Raffy Rojas MD [address] [place] [address] Consulting Physician Vascular Surgery 06/24/22 [facility] Clinic 02/03/22 Ocular Care Aide Relationship Specialty Start Date End Date Christiano Grove DO [address] [place] [address] PCP - General 09/17/16 Carlos Manuel Wang MD [address] [place] [address] Nephrology 06/24/22 Raffy Rojas MD [address] [place] [address] Consulting Physician Vascular Surgery 06/24/22 [facility] emery [facility] 02/03/22 Ocular Care Aide Relationship Specialty Start Date End Date Christiano Grove DO [address] [place] [address] PCP - General 09/17/16 Carlos Manuel Wang MD [address] [place] [address] Nephrology 06/24/22 Raffy Rojas MD [address] [place] [address] Consulting Physician Vascular Surgery [facility] Ocular Care Aide Relationship Specialty Start Date End Date Christiano Grove DO [address] [place] [address] PCP - General 09/17/16 Carlos Manuel Wang MD [address] [place] [address] Nephrology 06/24/22 Raffy Rojas MD [address] [place] [address] Consulting Physician Vascular Surgery 06/24/22 Shaan Phelan [facility] 02/03/22 Ocular Care Aide Relationship Specialty Start Date End Date Christiano Grove DO [address] [place] [address] PCP - General 09/17/16 Carlos Manuel Wang MD [address] [place] [address] Nephrology 06/24/22 Raffy Rojas MD [address] [place] [address] Consulting Physician Vascular Surgery 06/24/22 [facility] 02/03/22 Ocular Care Aide Relationship Specialty Start Date End Date Christiano Grove DO [address] [place] [address] PCP - General 09/17/16 01/19/24 Roxie Spain [address] [place] [phone] PCP - General Family Medicine 01/20/24 Carlos Manuel Wang MD [address] [place] [address] Nephrology 06/24/22 Raffy Rojas MD [address] [place] [address] Consulting Physician Vascular Surgery 06/24/22 [facility] 02/03/22 Ocular Care Aide Relationship Specialty Start Date End Date Judit Roxie [address] [facility] [place] [phone] PCP - General Family Medicine 01/20/24 Carlos Manuel Wang MD Nephrology 06/24/22 Raffy Rojas MD [address] [place] [address] Consulting Physician Vascular Surgery 06/24/22 Fres Cuy [facility] 02/03/22 Ocular Care Aide Relationship Specialty Start Date End Date Roxie Spain [address] [place] [phone] PCP - General Family Medicine 01/20/24 Carlos Manuel Wang MD Nephrology 06/24/22 Raffy Rojas MD [address] [place] [address] Consulting Physician Vascular Surgery 06/24/22 [facility] 02/03/22 Ocular Care Aide Relationship Specialty Start Date End Date Roxie Spain [address] [place] [phone] PCP - General Family Medicine 01/20/24 Carlos Manuel Wang MD Nephrology 06/24/22 Raffy Rojas MD [address] [place] [address] Consulting Physician Vascular Surgery 06/24/22 [facility] 02/03/22 Ocular Care Aide Relationship Specialty Start Date End Date Roxie Spain [address] [facility] [place] [phone] PCP - General Family Medicine 01/20/24 Carlos Manuel Wang MD Nephrology 06/24/22 [address]affy Ro[address] [place] [address] Consulting Physician Vascular Surgery 06/24/22 Shaan Phelan [facility] 02/03/22 Ocular Care Aide Relationship Specialty Start Date End Date Roxie Spain [address] [facility] [place] [phone] PCP - General Family Medicine 01/20/24 Carlos Manuel Wang MD Nephrology 06/24/22 [address]affy Rojas [address] [place] [address] Consulting Physician Vascular Surgery 06/24/22 Shaan Phelan [facility] 02/03/22 Ocular Care Aide Relationship Specialty Start Date End Date Roxie Spain [address] [facility] [place] [phone] PCP - General Family Medicine 01/20/24 Carlos Manuel Wang MD Nephrology 06/24/22 [address]affy Rojas [address] [place] [address] Consulting Physician Vascular Surgery 06/24/22 Shaan Phelan [facility] 02/03/22 Ocular Care Aide Relationship Specialty Start Date End Date Roxie Spain [address] [place] [phone] PCP - General Family Medicine 01/20/24 Carlos Manuel Wang MD Nephrology 06/24/22 [address]affy Rojas [address] [place] [address] Consulting Physician Vascular Surgery 06/24/22 Shaan Phelan [facility] 02/03/22 Ocular Care Aide Relationship Specialty Start Date End Date Roxie Spain [address] [place] [phone] PCP - General Family Medicine 01/20/24 Carlos Manuel Wang MD Nephrology 06/24/22 Raffy Rojas MD [address] [place] [address] Consulting Physician Vascular Surgery 06/24/22 [facility] 02/03/22 [facility] 11/14/24 Ocular Care Aide Relationship Specialty Start Date End Date Roxie Spain [address] [facility] [place] [address] PCP - General Family Medicine 01/20/24 Carlos Manuel Wang MD Nephrology 06/24/22 Raffy Rojas MD [address] [place] [address] Consulting Physician Vascular Surgery 06/24/22 [facility] [place] [facility]22 [facility]/14/24 Ocular Care Aide Relationship Specialty Start Date End Date Roxie Spain [address] [facility] [place] [address] PCP - General Family Medicine 01/20/24 Carlos Manuel Wang MD Nephrology 06/24/22 Raffy Rojas MD [address] [place] [address] Consulting Physician Vascular Surgery 06/24/22 [facility] 02[facility]22 [facility] 11/14/24 Ocular Care Aide Relationship Specialty Start Date End Date Roxie Spain [address] [facility] [place] [address] PCP - General Family Medicine 01/20/24 Carlos Manuel Wang MD Nephrology 06/24/22 Raffy Rojas MD [address] [place], [place] [id number] Consulting Physician Vascular Surgery 06/24/22 [facility] 02/03/22 [facility] 11/14/24 Ocular Care Aide Relationship Specialty Start Date End Date Roxie Spain [address] [facility] [place] [address] PCP - General Family Medicine 01/20/24 Carlos Manuel Wang MD Nephrology 06/24/22 Raffy Rojas MD [address] [place] [address] Consulting Physician Vascular Surgery 06/24/22 [facility] 02/03/22 [facility] 11/14/24 Ocular Care Aide Relationship Specialty Start Date End Date Roxie Spain [address] [facility] [place] [phone] PCP - General Family Medicine 01/20/24 Carlos Manuel Wang MD Nephrology 06/24/22 Raffy Rojas MD [address] [place] [address] Consulting Physician Vascular Surgery 06/24/22 [facility]22 [facility] 11/14/24 Ocular Care Aide Relationship Specialty Start Date End Date Roxie Spain [address] [facility] [place] [phone] PCP - General Family Medicine 01/20/24 Carlos Manuel Wang MD Nephrology 06/24/22 Raffy Rojas MD [address] [place] [address] Consulting Physician Vascular Surgery 06/24/22 [facility]22 [facility] 11/14/24 Ocular Care Aide Relationship Specialty Start Date End Date Roxie Spain [address] [facility] [place] [phone] PCP - General Family Medicine 01/20/24 Carlos Manuel Wang MD Nephrology 06/24/22 Raffy Rojas MD [address] [place] [address] Consulting Physician Vascular Surgery 06/24/22 [facility]22 [facility] 11/14/24 Scheduled Active and Recently [...] Intraprocedure 0914 (Given - Provid er: Raffy Rojas MD) hydrALAZINE (Apresoline) injection 5 mg(Linked Group [...] Intraprocedure 1035 (Given - Provid er: Raffy Rojas MD) oxyCODONE (Roxicodone) immediate release tablet 5 [...] 5 mg, Oral, Daily, First dose on 01/23/24 at 0900 0810 (Given - Provider: Sneha Andrea RN) 0913 (Given - Provider: Lenka Adikns RN) 0803 (Given - Provider: Lenka Adkins RN)0824 (MAR Hold - Provider: Automatic Transfer Provider - Reason: Patient not available)1029 (MAR Unhold - Provider: Automatic Transfer Provider) pantoprazole (ProtoNix) EC tablet 40 mg(Linked Group 1) 40 mg, Oral, 2 times daily before meals, First dose (after last modification) on Wed01/21/24 at 0700, Do not crush, chew, or split. 0504 (Given - Provider: Enriqueta Dial, CYNTHIA)1646 (Given - Provider: Alisia Collier RN) 0601 (Given - Provider: Anne-Marie He RN)1600 (Not Given - Provider: Lenka Adkins RN - Reason: Patient not available) 0601 (Given - Provider: Mary Francisco RN)0824 (JUN Hold - Provider: Automatic Transfer Provider - Reason: Patient not available)1029 (JUN Unhold - Provider: Automatic Transfer Provider)1636 (Given - Provider: Lenka Adkins RN) polyethylene glycol (GoLYTELY) solution 4,000 mL (COMPLETED) 4,000 mL, Oral, Once, On Wed01/23/24 at 1000, For 1 dose, Preprocedure, Begin at 1600. 240 ml (approximately 8 oz) PO every 10 minutes, until 4 liters are consumed or the rectal effluent is clear. Rapid drinking of each portion is preferred to drinking small amounts continuously. 1642 (Given - Provider: Alisia Collier RN) polyethylene glycol (GoLYTELY) solution 4,000 mL (COMPLETED) 4,000 mL, Oral, Once, On Wed01/24/24 at 1600, For 1 dose, Prep may [...] Daily, First dose (after last modification) on Wed01/22/24 at 0900, 1st line for treatment of [...] per day), First dose on Wed01/23/24 at 1000 1000 (Given - Provider: Alisia Collier RN)2099 (Not Given - Provider: Anne-Marie He RN - Reason: Other - Comment: 1 iv access) 0900 (Given - Provider: Lenka Adkins RN)2100 (Given - Provider: Mary Francisco RN) 0824 (JUN Hold - Provider: Automatic Transfer Provider - Reason: Patient not available)0900 (Given - Provider: Lenka Adkins RN)1029 (MAR Unhold - Provider: Automatic Transfer Provider) [...] 1345 (Given - Provider: Love Baig [facility]) PRN Medication Order 01/23/2024 01/24/2024 01/25/2024 acetaminophen [...] (JUN Unhold - Provider: Automatic Transfer Provider) acetaminophen (Tylenol) tablet 650 mg(Linked Group 2) 650 mg, Oral, Every 6 hours PRN, mild pain (1-3), fever, For temp greater than 100.4 F (38 C), Starting on Wed01/19/24 at 2335, Maximum dose of acetaminophen is 4000 mg from all sources in 24 hours. 2017 (Given - Provider: Mary Francisco, CYNTHIA) 0824 ([facility] Hold - Provider: Automatic Transfer Provider - Reason: Patient not available)102 ([facility] Unhold - Provider: Automatic Transfer Provider) Diclofenac Sodium (Voltaren) 1 % gel 2 g 2 g, Topical, 2 times daily PRN, Joint pain, Starting on Wed01/21/24 at 0845, Apply to area w joint pain. 0824 ([facility] Hold - Provider: Automatic Transfer Provider - Reason: Patient not available)102 ([facility] Unhold - Provider: Automatic Transfer Provider) fentaNYL (Sublimaze) injection (COMPLETED) IntraVENous, As needed, Starting on Wed01/24/24 at 1637, Intraprocedure 1637 (Given - Provider: Rayshawn Lawson RN) hydrALAZINE (Apresoline) injection 10 mg 10 mg, IntraVENous, Every 6 hours PRN, high blood pressure, SBP >160, Starting on Wed01/24/24 at 1829 1835 (Given - Provider: Enriqueta Ricks, CYNTHIA) 0824 ([facility] Hold - Provider: Automatic Transfer Provider - Reason: Patient not available)102 ([facility] Unhold - Provider: Automatic Transfer Provider) iopamidol [...] Alternative - Provider: Mary Francisco RN) 0824 ([facility] Hold - Provider: Automatic Transfer Provider - Reason: Patient not available)1029 ([facility] Unhold - Provider: Automatic Transfer Provider) ondansetron [...] from blister pack until just before administering. 2336 (Given - Provider: Mary Francisco RN) 08 ([facility] Hold - Provider: Automatic Transfer Provider - Reason: Patient not available)1029 ([facility] Unhold - Provider: Automatic Transfer Provider) senna-docusate sodium (Senokot-S) 8.6-50 MG tablet 2 tablet 2 tablet, Oral, Daily PRN, constipation, Starting on 01/23/24 at 0745 0810 (Given - Provider: Sneha Andrea RN) 08 ([facility] Hold - Provider: Automatic Transfer Provider - Reason: Patient not available)1029 ([facility] Unhold - Provider: Automatic [...] or less into rate field of order. 0824 ([facility] Hold - Provider: Automatic Transfer Provider - Reason: Patient not available)1029 ([facility] Unhold - Provider: Automatic [...] been cleared of remaining blood product. 0824 (JUN Hold - Provider: Automatic Transfer Provider - Reason: Patient not available)1029 (JUN Unhold - Provider: Automatic Transfer Provider) sodium chloride 0.9% (NS) flush 10 mL 10 mL, IntraVENous, PRN, line care, Starting on Wed01/23/24 at 0950, After every IV line use 0824 (JUN Hold - Provider: Automatic Transfer Provider - Reason: Patient not available)102 (JUN Unhold - Provider: Automatic Transfer Provider) No [...] Galdamez RN) 0913 (Given - Provider: Mike Augustin RN) atorvastatin (Lipitor) tablet 40 mg 40 mg, Oral, Nightly, First dose on 02/19/24 at 2100, On hold since 02/19/2024 at 0831 until manually unheld 08 (Held by provider - Provider: Radha Kevin, - Reason: Other)2100 (Dose Auto Held) 192 (Unheld by provider - Provider: Automatic Discharge Provider) azithromycin (Zithromax) tablet 500 mg (CANCELED)(Linked Group 1) 500 mg, Oral, Every 24 hours, First dose on 02/19/24 at 0820, For 3 days, Suspected Indication (Select all that apply): Pneumonia 0856 (Given - Provider: Regi Galdamez, CYNTHIA) calcium acetate (Phoslo) capsule 667 mg 667 mg, Oral, 3 times daily with meals, First dose on 02/19/24 at 0835 0856 (Given - Provider: Regi Galdamez RN)1404 (Given - Provider: Regi Galdamez RN)1822 (Given - Provider: Regi Galdamez RN) 0914 (Given - Provider: Mike Augustin RN)1259 (Given - Provider: Mike Augustin RN)1700 (Canceled Entry - Provider: Automatic Discharge Provider [...] 0856 (New Bag - Provider: Regi Galdamez RN)0926 (Stopped - Provider: Regi Galdamez RN) 0914 (New Bag - Provider: Mike Augustin RN)0944 (Stopped - Provider: Mike Augustin RN) cholecalciferol (Vitamin D-3) tablet 5,000 Units 5,000 Units, Oral, Daily, First dose on 02/19/24 at 0900 0856 (Given - Provider: Regi Galdamez RN) 0913 (Given - Provider: Mike Augustin RN) furosemide (Lasix) injection 80 mg (COMPLETED) 80 mg, IntraVENous, Once, On 02/19/24 at 0445, For 1 dose 0512 (Given - Provider: Efrem Raphael RN) heparin injection 5,000 Units 5,000 Units, SubCUTAneous, Every 12 hours scheduled (2 times per day), First dose on 02/19/24 at 0900 0856 (Given - Provider: Regi Galdamez RN)2052 (Given - Provider: Dorcas Robles RN) 0913 (Given - Provider: Mike Augustin RN) ipratropium-albuterol (Duo-Neb) 0.5-2.5 mg/3 mL nebulizer [...] at 0900 0900 (Given - Provider: Regi Galdamez, RN)2054 (Given - Provider: Dorcas Robles RN) 0900 (Not Given - Provider: Mike Augustin RN - Reason: Other) sodium chloride 0.9% (NS) flush 10 mL 10 mL, IntraVENous, Every 12 hours scheduled (2 times per day), First dose on 02/19/24 at 2315 2315 (Given - Provider: Jose Bowman RN) 0915 (Given - Provider: Mike Augustin, CYNTHIA) Continuous Medication Order 02/18/2024 02/19/2024 02/20/2024 nitroGLYCERIN 50 mg in dextrose 5% 250 mL infusion (CANCELED) 5-200 mcg/min (1.5-60 mL/hr), IntraVENous, Continuous, Starting on 02/19/24 at 0425, If Titrate Infusion? is "No": Disregard instructions below. If Titrate infusion? is "Yes": If rate LESS than 20 mcg/min: Titrate [...] mmHg 0424 (New Bag - Provider: Karis Pulido, CYNTHIA)0434 (Stopped - Provider: Karis Pulido, CYNTHIA) PRN Medication Order 02/18/2024 02/19/2024 02/20/2024 acetaminophen [...] no bowel movement in past 24 hours. 210 (Given - Provider: Dorcas Robles, RN) 0622 (Given - Provider: Jose Bowman, CYNTHIA) sodium chloride 0.9 % infusion 5-250 mL/hr, [...] First dose on Diane 03/02/24 at 2100 2026 (Given - Provider: Brenda Wooten RN) 2100 (Canceled Entry - Provider: Automatic Discharge Provider - Comment: Automatically canceled at discontinue of medication order) calcium acetate (Phoslo) capsule 667 mg 667 mg, Oral, 3 times daily with meals, First dose on Diane 03/02/24 at 0800 0815 (Given - Provider: Franco Greer RN)1419 (Given - Provider: Rickie Birmingham, CYNTHIA - Comment: pt getting dialysis at bedside)1729 (Given - Provider: Rickie Birmingham RN) 0842 (Given - Provider: Rickie Birmingham, CYNTHIA)1344 [...] ventricular fibrillation. 0700 (Given - Provider: Diandra Gant RN) dextrose 50 % solution 25 g (COMPLETED)(Linked Group 1) 25 g, IntraVENous, Once, On Diane 03/02/24 at 0625, For 1 dose 0702 (Given - Provider: Diandra Gant RN) heparin injection 5,000 Units 5,000 Units, [...] Group 1) 10 Units, IntraVENous, Once, On Diane 03/02/24 at 0625, For 1 dose 0701 (Given - Provider: Diandra Gant RN) levETIRAcetam (Keppra) tablet 500 mg 500 mg, Oral, Daily, First dose on Diane 03/02/24 at 0900, Do not crush or chew. [...] than 100.4 F (38 C), Starting on Dinae 03/02/24 at 0753, Maximum dose of acetaminophen [...] does not have IV access., Starting on Wed03/02/24 at 0621, After administration, attempt intravenous access and start D5W at 100 mL/hr. Repeat blood glucose in 15 minutes x2 and notify provider. glucose oral gel 15 g 15 g, Oral, As needed, low blood sugar, Starting on Wed03/02/24 at 0621, If blood glucose less than [...] in 15 minutes x2 and notify provider. 0824 (Given - Provider: Randy Greer RN) hydrALAZINE (Apresoline) injection 10 mg 10 mg, IntraVENous, Every 4 hours PRN, SBP>170, Starting on Wed03/02/24 at 0758 melatonin tablet 5 mg 5 mg, Oral, Nightly PRN, sleep, Starting on Wed03/02/24 at 1108 ondansetron (Zofran) injection 4 mg(Linked Group 3) 4 mg, IntraVENous, Every 6 hours PRN, nausea, vomiting, Starting on Wed03/02/24 at 0753, 1st Line. Give IV if [...] g, Oral, Daily PRN, constipation, Starting on Wed03/02/24 at 0753, 1st line for treatment of [...] Diane 03/02/24 at 0922, Last occurrence on [facility] 03/04/24 at 2200, For 3 days, [...] g (COMPLETED) 15 g, Oral, Once, On Diane 06/29/24 at 0910, For 1 dose, Empty [...] Warren RN) 0843 (Given - Provider: Jenn Little, CYNTHIA) atorvastatin (Lipitor) tablet 40 mg 40 mg, oral, Nightly, First dose on Wed09/01/24 at 2100 2104 (Given - Provider: Opal David RN) 203 (Given - Provider: Opal David RN) 2100 [...] Dialysis, anemia 1342 (Given - Provider: Jenn Little RN) epoetin miller (Epogen) injection 20,000 Units 20,000 [...] Warren, CYNTHIA) 0843 (Given - Provider: Jenn Little RN) vitamin B complex-vitamin C-folic acid (Nephrocaps) capsule 1 capsule 1 capsule, oral, Daily, First dose on Wed09/01/24 at 1530 0821 (Given - Provider: Praveen Carney RN) 1230 (Given - Provider: Kelechi Warren RN) 0843 (Given - Provider: Jenn Little, CYNTHIA) PRN Medication Order 09/04/2024 09/05/2024 09/06/2024 HYDROmorphone (Dilaudid) injection 0.2 mg (CANCELED) 0.2 mg, intravenous, Every 3 hours PRN, pain severe (7-10), first line, Starting on Diane 08/31/24 at 0133 0255 (Given - Provider: Ilene Valle RN)0831 (Given - Provider: Praveen Carney RN)2122 (Given - Provider: Opal David, CYNTHIA) 0108 (Given - Provider: Opal David RN) HYDROmorphone (Dilaudid) tablet 1 mg 1 mg, oral, Every 6 hours PRN, pain severe (7-10), first line, Starting on Wed09/05/24 at 0126, If ordered PRN for pain, nurse is permitted to administer this medication for higher pain scores based on patient preference? Yes 0526 (Given - Provider: Opal David RN)1228 (Given - Provider: Kelechi Warren RN)1826 (Given - Provider: Jenn Little, CYNTHIA) 0055 (Given - Provider: Opal David RN)0843 (Given - Provider: Jenn Little RN) meclizine (Antivert) tablet 25 mg 25 mg, oral, 3 times daily PRN, vertigo, Starting on Diane 08/31/24 at 0133 Scheduled Medication Order 11/09/2024 11/10/2024 [...] Yuly Gonzalez RN)1245 (Given - Provider: Key Leach, CYNTHIA)2016 (Given - Provider: Bee Hoyos RN) 0531 (Given - Provider: Bee J. Ross, RN)1402 (Given - Provider: Jessica La, RN) amLODIPine (Norvasc) tablet 5 mg 5 mg, Oral, Daily, First dose on Wed10/26/24 at 1330 1251 (Given - Provider: Kellee Rich, RN - Comment: Pt. was in dialysis) 0912 (Given - Provider: Key Leach, RN) 0816 (Given - Provider: Jessica La, RN) chlorhexidine (Hibiclens) 4 % solution Topical, Daily, First dose on Wed10/23/24 at 1400 1312 (Given - Provider: Kellee Rich, RN) 0515 (Given - Provider: Yuly Gonzalez RN - Comment: given)1247 (Given - Provider: Key Leach, RN) 1431 (Not Given - Provider: Jessica La, RN - Reason: Order parameters not met - Comment: line dcd) collagenase 250 UNIT/GM ointment Topical, Daily, First dose on Wed10/23/24 at 1200, Nursing staff to perform dressing change: Sacrum extending to left buttock: Pressure Injury Unstageable (POA) -cleanse with NS, apply santyl followed by xeroform, cover with dry clean dressing daily and PRN. 0751 (Given - Provider: Jamie Medina, CYNTHIA) 1247 (Given - Provider: Key Leach, CYNTHIA) 0900 (Canceled Entry - Provider: Automatic Discharge Provider - Comment: Automatically canceled at discontinue of medication order) heparin injection 5,000 Units 5,000 Units, SubCUTAneous, Every 12 hours scheduled (2 times per day), First dose on Wed10/22/24 at 2100, On hold since Wed11/09/2024 at 0836 until manually unheld 0836 (Held [...] mg (COMPLETED) 0.5 mg, IntraVENous, Once, On Wed11/09/24 at 0445, For 1 dose, If oral and injectable narcotics ordered, use oral first and only use injectable if oral is ineffective or cannot take oral. Do Not give oral and injectable within 1 hour of each other unless specifically ordered. 0459 (Given - Provider: Yuly Gonzalez, RN) levETIRAcetam (Keppra) tablet 500 mg 500 mg, Oral, Daily, First dose on Wed11/01/24 at 0930, Do not crush or chew. 1251 (Given - Provider: Kellee Rich, RN - Comment: Pt. was in dialysis) 0912 (Given - Provider: Key Leach, CYNTHIA) 0816 (Given - Provider: Jessica La, CYNTHIA) lidocaine-EPINEPHrine (Xylocaine W/EPI) 1 %-[id number] injection 25 mL 25 mL, Injection, Once, [...] - Provider: Kellee Rich RN - Reason: Other)2017 (Given - Provider: Yuly Gonzalez RN) 0913 (Given - Provider: Key Leach, CYNTHIA)2045 (Not Given - Provider: Bee Hoyos RN - Reason: Other - Comment: duplicate order) 0818 (Given - Provider: Jessica La RN) sodium chloride 0.9% (NS) flush 5-40 mL [...] Yuly Gonzalez RN)1323 (Given - Provider: Key Leach, CYNTHIA)202 (Given - Provider: Bee Hoyos RN) 0532 (Given - Provider: Bee Hoyos, RN)1431 (Not Given - Provider: Jessica La, RN - Reason: Order parameters not met [...] dialysis) 0912 (Given - Provider: Key Leach, CYNTHIA) 0816 (Given - Provider: Jessica La, RN) PRN Medication Order 11/09/2024 11/10/2024 11/11/2024 collagenase 250 UNIT/GM ointment Topical, PRN, Wound care, Starting on Wed10/23/24 at 1133, Nursing staff to perform dressing change: Sacrum extending to left buttock: Pressure Injury Unstageable (POA) -cleanse with NS, apply santyl followed by xeroform, cover with dry clean dressing daily and PRN. heparin injection 1,200-2,000 Units 1,200-2,000 Units, IntraCATHeter, As needed, For hemodialysis system down vascular catheter, Starting on Wed10/22/24 at 1851, To ARTERIAL lumen. Use when [...] venous lumen) 1307 (Given - Provider: Kimmie Sandhu RN) heparin injection 1,200-2,000 Units 1,200-2,000 Units, [...] (1st line, HOLD for HR<65), Starting on Tu10/24/24 at 0423 0415 (Given - Provider: Yuly Gonzalez, CYNTHIA) naloxone (Narcan) injection 0.4 mg 0.4 mg, IntraVENous, Every 5 min PRN, opioid reversal, respiratory depression, Starting on Wed10/30/24 at 2059, +++ For RR <10, pinpoint pupils, over sedation for opioid reversal - MUST notify dictaphone typist provider immediately after first dose, may give [...] at 1425 0347 (Given - Provider: Yuly Gonzalez, RN) 2022 (Given - Provider: Bee Hoyos, RN) 0222 (Given - Provider: Bee Hoyos, RN)1004 (Given - Provider: Jessica La, RN)1654 (Given - Provider: Jessica La, RN) polyethylene glycol (PEG) 3350 (Miralax) packet [...] and flush line post transfusion, Starting on [place] 11/05/24 at 0646, For 1 dose, For use [...] and flush line post transfusion, Starting on [place] 11/05/24 at 1146, For 1 dose, For use [...] flush line post transfusion, Starting on [place] 11/09/24 at 0329, For 1 dose, For use in priming line prior to transfusion (prime via gravity) and flush line post transfusion ONLY. Discontinue once line has been cleared of remaining blood product. sodium chloride 0.9% (NS) flush 5-40 mL 5-40 mL, IntraVENous, PRN, line care, Starting on 10/22/24 at 1304, For Line Patency: Peripheral [...] hours, First dose (after last modification) on Wed11/12/24 at 1830, Maximum dose of acetaminophen is [...] Jairon Travis RN) 0821 (Given - Provider: Jaiorn Travis RN) melatonin tablet 5 mg 5 mg, Oral, Nightly, First dose (after last modification) on Wed11/12/24 at 2100 1952 (Given - Provider: Saloni Childers, CYNTHIA) 2015 (Given - Provider: Saloni Childers, CYNTHIA) sevelamer [...] Jairon Travis RN)1310 (Not Given - Provider: Jaiorn Travis RN - Reason: Patient/family refused)1737 (Given - Provider: Jairon Travis RN) 0821 (Given - Provider: Jairon Travis RN)1301 (Not Given - Provider: Jairon Travis RN - Reason: Other - Comment: not eating) silver nitrate applicator Topical, Once, On 11/12/24 at 1900, For 1 dose, Resident to apply. sulfamethoxazole-trimeth oprim (Bactrim DS) 800-160 MG per tablet 1 tablet (COMPLETED) 1 tablet, Oral, Daily, First dose on Wed11/13/24 at 0900, For 1 day, Suspected Indication (Select all that apply): Surgical Site Infection 0908 (Given - Provider: Jairon Travis RN) Xeroform Petrolat Gauze 5"x9" external pad 1 each (CANCELED) 1 each, [...] on 11/12/24 at 1748, +++ For RR <10, pinpoint pupils, over sedation for opioid reversal - MUST notify dictaphone typist provider immediately after first dose, may give [...] contact provider if no further options ordered. 1820 (See Alternative - Provider: Jairon Travis RN)1823 [...] at 1742 0622 (Given - Provider: Saloni Childers, CYNTHIA)1221 (Given - Provider: Jairon Travis RN)1952 (Given - Provider: Saloni Childers, CYNTHIA) 1046 (Given - Provider: Jairon Travis RN)1607 (Given - Provider: Jairon Travis RN - Comment: order ok to give early per Dr. Do)2338 (Given - Provider: Saloni Childers, CYNTHIA) 0821 (Given - Provider: Jairon Travis RN) [...] Patient/family refused)1443 (Not Given - Provider: Kellee iRch RN - Reason: Patient/family refused)1800 (Not Given - Provider: Kellee Rich RN - Reason: Patient/family refused) 0301 (Not Given - Provider: Jayashree Petersen RN - Reason: Patient/family refused)1216 (Not Given - Provider: Key Leach RN - Reason: Patient/family refused)1816 (Given - Provider: Key Leach RN) 0332 (Not Given - Provider: Jayashree Petersen RN - Reason: Patient/family refused)0934 (Given - Provider: Jamie Medina RN)1900 (Canceled Entry - Provider: Automatic Discharge Provider [...] Nightly, First dose on 12/09/24 at 2100 2043 (Not Given - Provider: Jayashree Petersen, RN - Reason: Patient/family refused) 2000 (Given - Provider: Jayashree Petersen, RN) B complex-vitamin C-folic acid (Nephrocaps) capsule 1 capsule 1 capsule, Oral, Daily, First dose on 12/09/24 at 0900 0836 (Not Given - Provider: Kellee Rich RN - Reason: Patient/family refused) 0951 (Given - Provider: hSauna Flynn) 0847 (Given - Provider: Jamie Medina, RN) cholecalciferol (Vitamin D-3) tablet 5,000 Units 5,000 Units, Oral, Daily, First dose on 12/09/24 at [...] (Dose Auto Held - Provider: Kev Urias MD)0 (Dose Auto Held - Provider: Kev Urias [...] Rich, CYNTHIA)1950 (Stopped - Provider: Jayashree Petersen, RN) 1126 (New Bag - Provider: Shauna Flynn)1145 (Stopped - Provider: Key Leach RN) Lidocaine 4 % patch 1 patch 1 patch, TransDERmal, Administer over 12 Hours, Daily, First dose on Wed12/10/24 at 0900, Apply patch to affected area. Patch may remain in place for up to 12 hours in any 24 hour period. 0836 (Not Given - Provider: Kellee Rich RN - Reason: Patient/family refused) 0950 (Not Given - Provider: Sahuna Flynn - Reason: Patient/family refused) 0856 (Not [...] Infection 0010 (New Bag - Provider: Karis Jacobson, CYNTHIA)0310 (Stopped - Provider: Karis Jacobson, CYNTHIA)1625 (Not Given - Provider: Kellee Rich RN - Reason: Other - Comment: Order d/c) sodium chloride 0.9% (NS) flush 5-40 mL 5-40 mL, IntraVENous, Every 12 hours, First dose on 12/09/24 at 0630, For Line Patency: Peripheral [...] Reason: Other) 0509 (Given - Provider: Jayashree Petersen RN)1816 (Given - Provider: Key Leach, CYNTHIA) 0426 (Given - Provider: Jayashree Petersen RN)1733 (Not Given - Provider: Jamie Medina RN [...] Reason: Patient/family refused)1321 (Given - Provider: Key Leach RN)2140 (Given - Provider: Jayashree Petersen RN) 0425 (Given - Provider: Jayashree Petersen RN)1603 (Given - Provider: Jamie Medina, CYNTHIA) thiamine (Vitamin B1) 500 mg in sodium [...] dialysis)1999 (New Bag - Provider: Jayashree Petersen RN)214 (Stopped - Provider: Jayashree Nicola, RN) 0954 (New Bag - Provider: Shauna Flynn)1026 (Stopped - Provider: Key Leach, RN)1318 (New Bag - Provider: Key Leach, RN)1348 (Stopped - Provider: Key Leach, RN)2140 (New Bag - Provider: Jayashree Petersen RN)2217 (Stopped - Provider: Jayashree Petersen RN) 0929 (Not Given - Provider: Jamie Medina RN - Reason: See Provider Order) thiamine (Vitamin B1) tablet 100 mg 100 mg, Oral, Daily, First dose on Wed12/20/24 at 0915 0932 (Given - Provider: Jamie Medina, CYNTHIA) PRN Medication Order 12/18/2024 12/19/2024 12/20/2024 alteplase (Cathflo Activase) 2 mg in sterile [...] per system. 184 (Given - Provider: Key Leach, RN) gadopiclenol (Vueway) injection 5 mL (COMPLETED) [...] hour of each other unless specifically ordered. 09 (See Alternative - Provider: Kellee Rich RN)1853 (See Alternative - Provider: Kellee Rich RN) 30 (See Alternative - Provider: Jayashree Petersen RN)2000 (See Alternative - Provider: Jayashree Petersen RN) 424 (See Alternative - Provider: Jayashree Petersen RN) HYDROmorphone (Dilaudid) injection 0.5 mg(Linked Group 1) 0.5 mg, IntraVENous, Every 4 hours PRN, severe pain (7-10), Starting on [place] 12/14/24 at 1311, If oral and IV narcotics ordered, use oral first and only use IV if oral is ineffective or cannot take oral. Do Not give oral and IV within 1 hour of each other unless specifically ordered. 09 (Given - Provider: Kellee Rich RN)1853 (Given - Provider: Kellee Rich RN) 30 (Given - Provider: Jayashree Petersen, CYNTHIA)2000 (Given - Provider: Jayashree Petersen RN) 424 (Given - Provider: Jayashree Petersen, CYNTHIA) labetalol (Normodyne,Trandate) injection 10 mg 10 mg, IntraVENous, Every 6 hours PRN, high blood pressure, SBP>160. hold for HR< 60, Starting on 12/09/24 at 1112, 1st line 1853 (Given - Provider: Kellee Rich RN) 1999 (Given - Provider: Jayashree Petersen RN) melatonin tablet 5 mg 5 mg, Oral, Nightly PRN, sleep, Starting on Wed12/13/24 at 1500 naloxone (Narcan) injection 0.4 mg 0.4 mg, IntraVENous, Every 5 min PRN, opioid reversal, respiratory depression, Starting on 12/10/24 at 1911, +++ For RR <10, pinpoint pupils, over sedation for opioid reversal - MUST notify dictaphone typist provider immediately after first dose, may give [...] daily PRN, agitation, first line for agitation, [place] PRN Seroquel for ONLY if danger to [...] line interruptions / long duration, Starting on [facility] 12/09/24 at 0615, For piggyback infusion, administer [...] and flush line post transfusion, Starting on [place] 12/17/24 at 0832, For 1 dose, For [...] BE BASED ON THE PRIMARY CLINICAL RECORDS. [facility]. provides no warranty or guarantee of the accuracy or completeness of information in this document.
[2025-01-25 09:52] LABS: Anion Gap 13 (5-15); BUN 24 mg/dL (4-19); BUN/Creat Ratio 6.2 RATIO (10-20); Calcium,Total 8.7 mg/dL (7.6-11.0); Carbon Dioxide 25.7 mmol/L (21.0-32.0); Chloride 96 mmol/L (98-108); Glucose 100 mg/dL (70-99); Potassium 3.6 mmol/L (3.3-5.1)
== END ==
LOC: OLS.SANC 05:00
DX: D64.9 Anemia, unspecified (principal); I12.9 Hypertensive chronic kidney disease with stage 1 through stage 4 chronic kidney disease, or unspecified chronic kidney disease; N18.6 End stage renal disease
CPT/HCPCS: 36415; 80048

== ENCOUNTER → 2025-01-29 05:00 | Outpatient (REF) | payer MEDICARE, SELFPAY ==
[2025-01-29 08:38] LABS: Mucous, Urine 0 SEEN /hpf (<or=2+)
[2025-01-29 08:55] LABS: Hematocrit 27.3 % (37-47); Hemoglobin 8.8 g/dL (12.0-15.0); Mean Corp Hgb Conc 32.2 g/dL (32-36); Mean Corpuscular Volume 95.8 fL (81-99); Mean Platelet Vol. 10.8 fl (6.2-12.0); Platelet Count 477 K/mm3 (150-450); RBC Distribution Width CV 16.3 % (11.6-14.6); RBC Distribution Width SD 57.8 fl (35.1-43.9); Red Blood Count 2.85 M/mm3 (4.2-5.4); White Blood Count 12.5 K/mm3 (4.4-11.0)
[2025-01-29 09:19] LABS: AST(SGOT) 237 U/L (<=31); Alanine Aminotransfer ALT/SGPT 203 U/L (<=34); Albumin, Serum 2.9 g/dL (3.4-4.8); Alkaline Phosphatase 888 U/L (35-104); Anion Gap 14 (5-15); BUN 39 mg/dL (4-19); BUN/Creat Ratio 6.8 RATIO (10-20); Calcium,Total 8.3 mg/dL (7.6-11.0); Carbon Dioxide 26.8 mmol/L (21.0-32.0); Chloride 98 mmol/L (98-108); Globulin 4.0 g/dL (2.2-4.2); Glucose 71 mg/dL (70-99); Potassium 3.5 mmol/L (3.3-5.1)
[2025-01-29 09:34] LABS: Color, Urine Yellow (Yellow); Glucose, Dipstick Normal (Normal); Ketone-Dipstick Negative (Negative); Leukocyte Esterase-Dipstick Negative /ul (Negative); Nitrite-Dipstick Negative (Negative); Occult Blood-Urine 250 /ul (Negative); Protein-Dipstick 500 mg/dl (Negative); Specific Gravity, Urine 1.015 (1.002-1.030); Urine Bilirubin Dipstick Negative (Negative)
[2025-01-29 09:40] LABS: Squamous Epithelial Cells - UA 0-5 SEEN /hpf (5-10)
[2025-01-29 09:41] LABS: Red Blood Cells-Urine 0-5 SEEN /hpf (0-5)
== END ==
LOC: OLS.SANC 05:00
PROVIDERS: Visit Provider Internal Medicine
DX: N39.0 Urinary tract infection, site not specified (principal); I12.9 Hypertensive chronic kidney disease with stage 1 through stage 4 chronic kidney disease, or unspecified chronic kidney disease; N18.4 Chronic kidney disease, stage 4 (severe)
CPT/HCPCS: 36415; 80053; 81001; 85027; 87086; 87088

== ENCOUNTER → 2025-02-09 05:00 | Outpatient (REF) | payer MEDICARE, SELFPAY ==
--- OUTSIDE RECORDS SUMMARY | 2025-02-09 04:44 | XMS RPT_ITS | CCD ---
Author Organization [facility] Care Team Providers Care Massage Coordinator Name Role Phone Bonyo Alvarado S Primary [...] Unavailable Primary Care Provider Unavailabl e BICAKODAK DO~[id number], BICAKODAK VERA ittmark g Unavailable SAROJ DENG, RADHA Procedure Practitioner Unav DANIELA Perdue MD Consulting Unavailable JAYANT DO~[id number], JAYANT HEARN Atten floridalma Unavailable ROXIE SPAIN MD Primary Care Unavailable DANIELA THORNTON MD Consulting Unavailable TEZ FREIGHT ROUTER, EDWIN Consulting Unavailable TEZ FREIGHT ROUTER, EDWIN Consulting Unavailable CECY DENG, NEVA Consulting Unavailable CECY DENG, NEVA Consulting Unavailable ALTHEA DENG, BLANCA Consulting Unavailable ALTHEA DENG, BLANCA Consulting Unavailable LELAND DO, HONORIO David Consulting Unavailabl e LELAND DO, HONORIO A Consulting Unavailabl e ZIDEHSARAI DO, JOSE G P Consulting Unavaila ble ZIDEHSARAI DO, JOSE G P Consulting Unavaila ble BICAKODAK DO~[id number], BICAKODAK VERA Attendin g Unavailable ALTHEA DENG, BLANCA Procedure Practitioner Unavaila KEV Hills MD Consulting Unavailable POLLOCK DO~[phone], KEITH David Admitting Unavailable ROXIE SPAIN MD [...] MD, GERA Emanuel Consulting Unavailabl e BRENT MC KAY STITCHER, KLEVER Consulting Unavailabl e BRENT MC KAY STITCHER, KLEVER Consulting Unavailabl e MAYLIN LEÓN MD Consulting Unava ilable MAYLIN LEÓN MD Consulting Unava ilable LE DO~[phone], NIKHIL KRISHNA Admitting Unavai lable LE DO~[id number], NIKHIL KRISHNA Attending ROXIE Mendoza MD Primary Care Unavailable RADHA MCKEON Referring Unavailable ALSMARIELLAAMINTEODORO Y Admitting Unavailable LEVI GAMBINO Attending Unavailjoann Wang MD, Carlos Manuel Q Unavailable Jim DENG, Raffy Unavailable Roxie Spain Primary Care Provider [phone] MO VIEIRA Attending Unavailable VICTOR MANUEL BENITO Consulting Unavailable LETICIA LEONARDO Admitting Unavailable JUDIT, ROXIE Primary Care Unavailable ARGENIS, SHAMAR Consulting Unavailable GERARD CARRILLO Attending Unavailable VOROSHILOVA, RADHA Consulting Unavailable LONI ZAMBRANO Admitting Unavailable JUDIT, ROXIE Primary Care Unavailable ARGENIS, HSAMAR Consulting Unavailable MARCUS RAGLAND Attending Unavailable JUDIT, ROXIE Primary Care Unavailable FELIBERTO KAMNISKI Consulting Unavailable KEVIN DO Attending Unavailable MARCUS, EDSON Admitting Unavailable JUDIT, ROXIE Primary Care Unavailable MAGALYS CAN Admitting Unavailable MAGALYS CAN Attending Unavailable JUDIT, ROXIE Primary Care Unavailable RIVAS SANCHEZ Attending [...] GABRIEL DELGADO Admitting Unavailable Mukkamalla OLS, Mahaveer Primary Care Unavail able Mukkamalla FARIHA, Sugeyer Attending Unavail able Mukkamalla OLS, Mahaveer Referring Unavail able Mukkamalla OLS, Mahaveer Primary Care Unavail able Randy Marks Attending Unavailable Mukkamalla OLS, Mahaveer Primary Care Unavail able Mukkamalla OLS, Mahaveer Attending Unavail able Mukkamalla OLS, Mahaveer Referring Unavail able [facility]avail able [facility], [facility] Attending Unavail able Mukkamalla OLS, [facility] Primary Care Unavail able Mukkamalla OLS, [facility] Attending Unavail able Mukkamalla OLS, [facility] Primary Care Unavail able Zev Randy FRIED Attending Unavailable [facility]alla [facility]LS, [facility] Attending Unavail able Mukkamalla OLS, [facility] Attending Unavail able Mukkamalla OLS, [facility] Attending Unavail able Medications Current Medications Medication Drug [...] Daily, First dose on Wed09/01/24 at 1030 Start: 03-02-2024 End: 03-03-2024 take [...] mg by mouth daily. Active epoetin miller 60336 unt/ml injectable solution (4 sources) Erythropoiesis-sti mulating Agent Start: 2024 take 87576 [IU] intravenously once daily 20,000 Units, intravenous, User specified (Once per day on Wednesday), First dose (after last modification) on Wed09/07/24 at 2100, Indications: ESRD on Dialysis Start: 09-06-2024 End: 09-06-2024 10,000 Units, intravenous, O nce, On Wed09/06/24 at 1330, For 1 dose, Please give today.. non-dialysis day..hgb 7.6, Indications: ESRD on Dialysis, anemia Start: 09-05-2024 End: 09-06-2024 take 44940 [IU] intravenously once daily 10,000 Units, intravenous, User specified (Once per day on Wednesday), First dose (after last modification) on Wed09/05/24 at 2100, Indications: ESRD on Dialysis Start: 09-02-2024 End: 09-04-2024 inject 46964 [IU] by subcutaneous injection once daily 10,000 Units, subcutaneous, User specified (Once per day on Wednesday), First dose on 09/02/24 at 2100, Indications: ESRD on Dialysis hydrALAZINE [...] daily as needed (first line for agitation, [place] PRN Seroquel for ONLY if danger to self/others/treatment). 12/20/2024 01/19/2025 Active Start: 10-29-2024 End: 10-29-2024 sodium zirconium cyclosilicate 88072 mg powder for oral suspension (3 sources) Start: 09-01-2024 take 1 dose by mouth once daily 10 g, oral, 3 times weekly (Once per day on Wednesday), First dose on Wed09/01/24 at 1030 Start: 08-31-2024 End: 09-01-2024 10 g, oral, Every other day, First dose on Diane 08/31/24 at 0900 sodium zirconium cyclosilicate (Lokelma) 10 gram packet Take 10 g by mouth 3 (three) times a week. Mon/wed/wed Active vitamin B complex-vitamin C-folic acid (Nephrocaps) [...] 02/19/24 at 0900 take 1 capsule by mo uth once daily cholecalciferol (Vitamin D-3) 125 [...] mg docusate sodium 50 mg / sennosides, chcf 8.6 mg oral tablet (4 sources) Start: [...] End: 12-13-2024 0.5 ml heparin sodium, porcine 10497 unt/ml prefilled syringe (20 sources) Unfractionated Heparin, [...] at 0408, For 1 dose, Karis Pulido: cabinet override ondansetron ODT (Zofran-ODT) disintegrating tablet 4 [...] for pain 5 mg, oral, Once, On [facility] 08/31/24 at 0200, For 1 dose, If [...] hours, First dose (after last modification) on [facility] 08/31/24 at 0200, premix bag, Dosing of this medication varies based on severity of illness. Does this patient have sepsis or concern for sepsis (probable or documented infection plus systemic manifestations of infection)? No, Suspected Indication (Select all that apply): Cellulitis, Skin and Soft Tissue, Indications: Cellulitis, Skin and Soft Tissue polyethylene glycol 3350 50644 mg powder for oral solution (18 sources) [...] in past 24 hours. polyethylene glycol 3350 808138 mg / potassium chloride 2970 mg / sodium bicarbonate 6740 mg / sodium chloride 5860 mg / sodium sulfate 16489 mg powder for oral solution (4 sources) Osmotic Laxative Start: 01-23-2024 End: 01-24-2024 4,000 mL, Oral, Once, On Wed01/24/24 at [...] End: 07-17-2022 sodium chloride 0.9% (NS) fl [facility] 10 mL sodium zirconium cyclosilicate (Lokelma) packet [...] convulsions] Onset: 5 11-02-2024 Episodic Essential hypertension (6 sources) Hypertensive disorder; Translations: [Essential (primary) hypertension] [...] 11-11-2024 Episodic Other aftercare (2 sources) Other correction (current) drug therapy; Translations: [OTH CARE HOME CURRENT DRUG THERAPY] Onset: 5 Episodic Other [...] rate; Translations: [ELEVATED ERYTHROCYTE SED RATE] Onset: 5 Episodic Other hereditary and degenerative nervous system [...] source) ACIDOSIS UNSPECIFIED; Translations: [ACIDOSIS UNSPECIFIED] Onset: Unclassified (1 source) PT NONCOMPL RENAL DIALYSIS OTH REAS; Translations: [PT NONCOMPL RENAL DIALYSIS OTH REAS] Onset: Unclassified (1 source) ENCOUNT FOR SCREENING FOR COVID-19; Translations: [ENCOUNT FOR SCREENING FOR COVID-19] Onset: 5 Unclassified (2 sources) Post-op; Translations: [Post-op] Onset: 5 Urinary tract infections (1 source) Urinary tract infection, site not specified; Translations: [Urinary tract infection, site not specified] Onset: 5 Episodic Viral infection (2 sources) COVID-19; Translations: [COVID-19] [...] sources) Localized edema; Translations: [Localized edema] Onset: 5 Episodic Respiratory failure; insufficiency; arrest (adult) (3 [...] Test Name Value Interpretation Reference Range Facility Urine Cultureon 01-31-2025 [facility] 407-2 Below infection level. Mixed Gram Positive Organisms Morgan Count <1000 [facility] Mixed contaminants. Submit a new specimen if indicated. Normal [facility] Comment on above: Performed By: #### L 400.0001, L100.0500, M100.2200, L500.4050 #### [facility] [address] [place], [address] CBC-Complete Blood Cnt No Di ffon 01-29-2025 Erythrocyte distribution width (RBC) [Ratio] 16.3 % High 11.6-14.6 [facility] Comment on above: Order Comment: 407-2 Performed By: #### L 400.0001, L100.0500, M100.2200, L500.4050 #### [facility] [address] [place], [address] Hematocrit (Bld) [Volume fraction] 27.3 % Low 37-47 [facility] Comment on above: Order Comment: 407-2 Performed By: #### L 400.0001, L100.0500, M100.2200, L500.4050 #### [facility] [address] [place], [address] Hemoglobin (Bld) [Mass/Vol] 8.8 g/dL Low 12.0-15.0 [facility] Comment on above: Order Comment: 407-2 Performed By: #### L 400.0001, L100.0500, M100.2200, L500.4050 #### [facility] [address] [place], [address] MCH (RBC) [Entitic mass] 30.9 pg Normal 27.0-32.0 [facility] Comment on above: Order Comment: 407-2 Performed By: #### L 400.0001, L100.0500, M100.2200, L500.4050 #### [facility] [address] [place], [address] MCHC (RBC) [Mass/Vol] 32.2 g/dL Normal 32-36 [facility] Comment on above: Order Comment: 407-2 Performed By: #### L 400.0001, L100.0500, M100.2200, L500.4050 #### [facility] [address] [place], [address] MCV (RBC) [Entitic vol] 95.8 fL Normal 81-99 [facility] Comment on above: Order Comment: 407-2 Performed By: #### L 400.0001, L100.0500, M100.2200, L500.4050 #### [facility] [address] [place], [address] Platelet mean volume (Bld) [Entitic vol] 10.8 fL Normal 6.2-12.0 [facility] Comment on above: Order Comment: 407-2 Performed By: #### L 400.0001, L100.0500, M100.2200, L500.4050 #### [facility] [address] [place], [address] Platelets (Bld) [#/Vol] 477 10*3/uL High 150-450 [facility] Comment on above: Order Comment: 407-2 Performed By: #### L 400.0001, L100.0500, M100.2200, L500.4050 #### [facility] [address] [place], [address] RBC (Bld) [#/Vol] 2.85 10*6/uL Low 4.2-5.4 [facility] Comment on above: Order Comment: 407-2 Performed By: #### L 400.0001, L100.0500, M100.2200, L500.4050 #### [facility] [address] [place], [address] RDW SD 57.8 fl High 35.1-43.9 [facility] Comment on above: Order Comment: 407-2 Performed By: #### L 400.0001, L100.0500, M100.2200, L500.4050 #### [facility] [address] [place], [address] WBC (Bld) [#/Vol] 12.5 10*3/uL High 4.4-11.0 [facility] Comment on above: Order Comment: 407-2 Performed By: #### L 400.0001, L100.0500, M100.2200, L500.4050 #### [facility] [address] [place], [address] Comprehensive Metabolic Prof [facility] 01-29-2025 Albumin [Mass/Vol] 2.9 g/dL Low 3.4-4.8 [facility] Comment on above: Order Comment: 407-2 Performed By: #### L 400.0001, L100.0500, M100.2200, L500.4050 #### [facility] [address] [place], [address] Albumin/Globulin [Mass ratio] 0.7 {ratio} Low 0.9-2.4 [facility] Comment on above: Order Comment: 407-2 Performed By: #### L 400.0001, L100.0500, M100.2200, L500.4050 #### [facility] [address] [place], [address] ALK PHOS 888 U/L High 35-104 [facility] Comment on above: Order Comment: 407-2 Performed By: #### L 400.0001, L100.0500, M100.2200, L500.4050 #### [facility] [address] [place], [address] ALT [Catalytic activity/Vol] 203 U/L High <=34 [facility] Comment on above: Order Comment: 407-2 Performed By: #### L 400.0001, L100.0500, M100.2200, L500.4050 #### [facility] [address] [place], [address] AST [Catalytic activity/Vol] 237 U/L High <=31 [facility] Comment on above: Order Comment: 407-2 Performed By: #### L 400.0001, L100.0500, M100.2200, L500.4050 #### [facility] [address] [place], [address] Bilirubin [Mass/Vol] 0.50 mg/dL Normal 0.00-1.30 [facility] Comment on above: Order Comment: 407-2 Performed By: #### L 400.0001, L100.0500, M100.2200, L500.4050 #### [facility] [address] [place], [address] BUN/CRE 6.8 RATIO Low 10-20 [facility] Comment on above: Order Comment: 407-2 Performed By: #### L 400.0001, L100.0500, M100.2200, L500.4050 #### [facility] [address] [place], [address] Calcium [Mass/Vol] 8.3 mg/dL Normal 7.6-11.0 [facility] Comment on above: Order Comment: 407-2 Performed By: #### L 400.0001, L100.0500, M100.2200, L500.4050 #### [facility] [address] [place], [address] Chloride [Moles/Vol] 98 mmol/L Normal 98-108 [facility] Comment on above: Order Comment: 407-2 Performed By: #### L 400.0001, L100.0500, M100.2200, L500.4050 #### [facility] [address] [place], [address] CO2 [Moles/Vol] 26.8 mmol/L Normal 21.0-32.0 [facility] Comment on above: Order Comment: 407-2 Performed By: #### L 400.0001, L100.0500, M100.2200, L500.4050 #### [facility] [address] [place], [address] Creatinine [Mass/Vol] 5.74 mg/dL High 0.70-1.20 [facility] Comment on above: Order Comment: 407-2 Performed By: #### L 400.0001, L100.0500, M100.2200, L500.4050 #### [facility] [address] [place], [address] GAP 14 Normal 5-15 [facility] Comment on above: Order Comment: 407-2 Performed By: #### L 400.0001, L100.0500, M100.2200, L500.4050 #### [facility] [address] [place], [address] GFR/1.73 sq M.predicted among non-blacks MDRD (S/P/Bld) [Vol rate/Area] 7 mL/min/{1.73_m2} Low >60 [facility] Comment on above: Order Comment: 407-2 Result Comment: mL/m in/1.73m2 CKD-EPI Creatinine Equation (2020) Performed By: #### L 400.0001, L100.0500, M100.2200, L500.4050 #### [facility] [address] [place], [address] Globulin (S) [Mass/Vol] 4.0 g/dL Normal 2.2-4.2 [facility] Comment on above: Order Comment: 407-2 Performed By: #### L 400.0001, L100.0500, M100.2200, L500.4050 #### [facility] [address] [place], [address] Glucose [Mass/Vol] 71 mg/dL Normal 70-99 [facility] Comment on above: Order Comment: 407-2 Performed By: #### L 400.0001, L100.0500, M100.2200, L500.4050 #### [facility] [address] [place], [address] Potassium [Moles/Vol] 3.5 mmol/L Normal 3.3-5.1 [facility] Comment on above: Order Comment: 407-2 Performed By: #### L 400.0001, L100.0500, M100.2200, L500.4050 #### [facility] [address] [place], [address] Sodium [Moles/Vol] 139 mmol/L Normal 133-145 [facility] Comment on above: Order Comment: 407-2 Performed By: #### L 400.0001, L100.0500, M100.2200, L500.4050 #### [facility] [address] [place], [address] T PROT 6.9 g/dL Normal 5.9-8.4 [facility] Comment on above: Order Comment: 407-2 Performed By: #### L 400.0001, L100.0500, M100.2200, L500.4050 #### [facility] [address] [place], [address] Urea nitrogen [Mass/Vol] 39 mg/dL High 4-19 [facility] Comment on above: Order Comment: 407-2 Performed By: #### L 400.0001, L100.0500, M100.2200, L500.4050 #### [facility] [address] [place], [address] Urinalysis, Completeon 01-29 RBC 0-5 SEEN Normal 0-5 [facility] Comment on above: Order Comment: 407-2 CLEAN CATCH Performed By: #### L 400.0001, L100.0500, M100.2200, L500.4050 #### [facility] [address] [place], [address] EPI,SQUAMOUS 0-5 SEEN Normal - [facility] Comment on above: Order Comment: 407-2 CLEAN CATCH Performed By: #### L 400.0001, L100.0500, M100.2200, L500.4050 #### [facility] [address] [place], [address] BACTERIA 0 SEEN Normal None Seen [facility] Comment on above: Order Comment: 407-2 CLEAN CATCH Performed By: #### L 400.0001, L100.0500, M100.2200, L500.4050 #### [facility] [address] [place], [address] Mucus Ql (Urine sed) 0 SEEN Normal [facility] Comment on above: Order Comment: 407-2 CLEAN CATCH Performed By: #### L 400.0001, L100.0500, M100.2200, L500.4050 #### [facility] [address] [place], [address] WBC 0 SEEN Normal 0-5 [facility] Comment on above: Order Comment: -2 CLEAN CATCH Performed By: #### L 400.0001, L100.0500, M100.2200, L500.4050 #### [facility] [address] [place], [address] CBC-Complete Blood Cnt No Di ffon 01-26-2025 HCT Normal 37-47 [facility] Comment on above: Order Comment: Result Comment: CLOT MOHINDER PER TEVIN IN THE LAB Performed By: #### L 400.0001, L100.0500, M100.2200, L500.4050 #### [facility] [address] [place], [address] HGB Normal 12.0-15.0 [facility] Comment on above: Order Comment: Result Comment: CLOT MOHINDER PER TEVIN IN THE LAB Performed By: #### L 400.0001, L100.0500, M100.2200, L500.4050 #### [facility] [address] [place], [address] MCH Normal 27.0-32.0 [facility] Comment on above: Order Comment: Result Comment: CLOT MOHINDER PER TEVIN IN THE LAB Performed By: #### L 400.0001, L100.0500, M100.2200, L500.4050 #### [facility] [address] [place], [address] MCHC Normal 32-36 [facility] Comment on above: Order Comment: Result Comment: CLOT MOHINDER PER TEVIN IN THE LAB Performed By: #### L 400.0001, L100.0500, M100.2200, L500.4050 #### [facility] [address] [place], [address] MCV Normal 81-99 [facility] Comment on above: Order Comment: Result Comment: CLOT MOHINDER PER TEVIN IN THE LAB Performed By: #### L 400.0001, L100.0500, M100.2200, L500.4050 #### [facility] [address] [place], [address] PLT Normal 150-450 [facility] Comment on above: Order Comment: Result Comment: CLOT MOHINDER PER TEVIN IN THE LAB Performed By: #### L 400.0001, L100.0500, M100.2200, L500.4050 #### [facility] [address] [place], [address] RBC Normal 4.2-5.4 [facility] Comment on above: Order Comment: Result Comment: CLOT MOHINDER PER TEVIN IN THE LAB Performed By: #### L 400.0001, L100.0500, M100.2200, L500.4050 #### [facility] [address] [place], [address] RDW CV Normal 11.6-14.6 [facility] Comment on above: Order Comment: Result Comment: CLOT MOHINDER PER TEVIN IN THE LAB Performed By: #### L 400.0001, L100.0500, M100.2200, L500.4050 #### [facility] [address] [place], [address] RDW SD Normal 35.1-43.9 [facility] Comment on above: Order Comment: Result Comment: CLOT MOHINDER PER TEVIN IN THE LAB Performed By: #### L 400.0001, L100.0500, M100.2200, L500.4050 #### [facility] [address] [place], [address] WBC Normal 4.4-11.0 [facility] Comment on above: Order Comment: Result Comment: CLOT MOHINDER PER TEVIN IN THE LAB Performed By: #### L 400.0001, L100.0500, M100.2200, L500.4050 #### [facility] [address] [place], [address] Basic Metabolic Profile (BMP )on 01-25-2025 BUN/CRE 6.2 RATIO Low 10-20 [facility] Comment on above: Order Comment: 407-2 Performed By: #### L 400.0001, L100.0500, M100.2200, L500.4050 #### [facility] [address] [place], [address] Calcium [Mass/Vol] 8.7 mg/dL Normal 7.6-11.0 [facility] Comment on above: Order Comment: 407-2 Performed By: #### L 400.0001, L100.0500, M100.2200, L500.4050 #### [facility] [address] [place], [address] Chloride [Moles/Vol] 96 mmol/L Low 98-108 [facility] Comment on above: Order Comment: 407-2 Performed By: #### L 400.0001, L100.0500, M100.2200, L500.4050 #### [facility] [address] [place], [address] CO2 [Moles/Vol] 25.7 mmol/L Normal 21.0-32.0 [facility] Comment on above: Order Comment: 407-2 Performed By: #### L 400.0001, L100.0500, M100.2200, L500.4050 #### [facility] [address] [place], [address] Creatinine [Mass/Vol] 3.80 mg/dL High 0.70-1.20 [facility] Comment on above: Order Comment: 407-2 Performed By: #### L 400.0001, L100.0500, M100.2200, L500.4050 #### [facility] [address] [place], [address] GAP 13 Normal 5-15 [facility] Comment on above: Order Comment: 407-2 Performed By: #### L 400.0001, L100.0500, M100.2200, L500.4050 #### [facility] [address] [place], [address] GFR/1.73 sq M.predicted among non-blacks MDRD (S/P/Bld) [Vol rate/Area] 12 mL/min/{1.73_m2} Low >60 [facility] Comment on above: Order Comment: 407-2 Result Comment: mL/m in/1.73m2 CKD-EPI Creatinine Equation (2020) Performed By: #### L 400.0001, L100.0500, M100.2200, L500.4050 #### [facility] [address] [place], [address] Glucose [Mass/Vol] 100 mg/dL High 70-99 [facility] Comment on above: Order Comment: 407-2 Performed By: #### L 400.0001, L100.0500, M100.2200, L500.4050 #### [facility] [address] [place], [address] Potassium [Moles/Vol] 3.6 mmol/L Normal 3.3-5.1 [facility] Comment on above: Order Comment: 407-2 Result Comment: Hemo lysis present, Results??could be affected. ?? Performed By: #### L 400.0001, L100.0500, M100.2200, L500.4050 #### [facility] [address] [place], [address] Sodium [Moles/Vol] 135 mmol/L Normal 133-145 [facility] Comment on above: Order Comment: 407-2 Performed By: #### L 400.0001, L100.0500, M100.2200, L500.4050 #### [facility] [address] [place], [address] Urea nitrogen [Mass/Vol] 24 mg/dL High 4-19 [facility] Comment on above: Order Comment: 407-2 Performed By: #### L 400.0001, L100.0500, M100.2200, L500.4050 #### [facility] [address] [place], [address] CBC-Complete Blood Cnt No Di ffon 01-25-2025 HCT Normal 37-47 [facility] Comment on above: Order Comment: 407-2 Result Comment: QNS PER TRAVIS IN LAB 01/25/25 @0930 Performed By: #### L 400.0001, L100.0500, M100.2200, L500.4050 #### [facility] [address] [place], [address] HGB Normal 12.0-15.0 [facility] Comment on above: Order Comment: 407-2 Result Comment: QNS PER TRAVIS IN LAB 01/25/25 @0930 Performed By: #### L 400.0001, L100.0500, M100.2200, L500.4050 #### [facility] [address] [place], [address] MCH Normal 27.0-32.0 [facility] Comment on above: Order Comment: 407-2 Result Comment: QNS PER TRAVIS IN LAB 01/25/25 @0930 Performed By: #### L 400.0001, L100.0500, M100.2200, L500.4050 #### [facility] [address] [place], [address] MCHC Normal 32-36 [facility] Comment on above: Order Comment: 407-2 Result Comment: QNS PER TRAVIS IN LAB 01/25/25 @0930 Performed By: #### L 400.0001, L100.0500, M100.2200, L500.4050 #### [facility] [address] [place], [address] MCV Normal 81-99 [facility] Comment on above: Order Comment: 407-2 Result Comment: QNS PER TRAVIS IN LAB 01/25/25 @0930 Performed By: #### L 400.0001, L100.0500, M100.2200, L500.4050 #### [facility] [address] [place], [address] PLT Normal 150-450 [facility] Comment on above: Order Comment: 407-2 Result Comment: QNS PER TRAVIS IN LAB 01/25/25 @0930 Performed By: #### L 400.0001, L100.0500, M100.2200, L500.4050 #### [facility] [address] [place], [address] RBC Normal 4.2-5.4 [facility] Comment on above: Order Comment: 407-2 Result Comment: QNS PER TRAVIS IN LAB 01/25/25 @0930 Performed By: #### L 400.0001, L100.0500, M100.2200, L500.4050 #### [facility] [address] [place], [address] RDW CV Normal 11.6-14.6 [facility] Comment on above: Order Comment: 407-2 Result Comment: QNS PER TRAVIS IN LAB 01/25/25 @0930 Performed By: #### L 400.0001, L100.0500, M100.2200, L500.4050 #### [facility] [address] [place], [address] RDW SD Normal 35.1-43.9 [facility] Comment on above: Order Comment: 407-2 Result Comment: QNS PER TRAVIS IN LAB 01/25/25 @0930 Performed By: #### L 400.0001, L100.0500, M100.2200, L500.4050 #### [facility] [address] [place], [address] WBC Normal 4.4-11.0 [facility] Comment on above: Order Comment: 407-2 Result Comment: QNS PER TRAVIS IN LAB 01/25/25 @0930 Performed By: #### L 400.0001, L100.0500, M100.2200, L500.4050 #### [facility] [address] [place], [address] Basic Metabolic Profile (BMP )on 01-09-2025 BUN/CRE 10.2 RATIO Normal -20 [facility] Comment on above: Order Comment: 407-2 Performed By: #### L 400.0001, L100.0500, M100.2200, L500.4050 #### [facility] [address] [place], [address] Calcium [Mass/Vol] 8.2 mg/dL Normal 7.6-11.0 [facility] Comment on above: Order Comment: 407-2 Performed By: #### L 400.0001, L100.0500, M100.2200, L500.4050 #### [facility] [address] [place], [address] Chloride [Moles/Vol] 102 mmol/L Normal 98-108 [facility] Comment on above: Order Comment: 407-2 Performed By: #### L 400.0001, L100.0500, M100.2200, L500.4050 #### [facility] [address] [place], [address] CO2 [Moles/Vol] 28.4 mmol/L Normal 21.0-32.0 [facility] Comment on above: Order Comment: 407-2 Performed By: #### L 400.0001, L100.0500, M100.2200, L500.4050 #### [facility] [address] [place], [address] Creatinine [Mass/Vol] 4.00 mg/dL High 0.70-1.20 [facility] Comment on above: Order Comment: 407-2 Performed By: #### L 400.0001, L100.0500, M100.2200, L500.4050 #### [facility] [address] [place], [address] GAP 11 Normal 5-15 [facility] Comment on above: Order Comment: 407-2 Performed By: #### L 400.0001, L100.0500, M100.2200, L500.4050 #### [facility] [address] [place], [address] GFR/1.73 sq M.predicted among non-blacks MDRD (S/P/Bld) [Vol rate/Area] 11 mL/min/{1.73_m2} Low >60 [facility] Comment on above: Order Comment: 407-2 Result Comment: mL/m in/1.73m2 CKD-EPI Creatinine Equation (2020) Performed By: #### L 400.0001, L100.0500, M100.2200, L500.4050 #### [facility] [address] [place], [address] Glucose [Mass/Vol] 76 mg/dL Normal 70-99 [facility] Comment on above: Order Comment: 407-2 Performed By: #### L 400.0001, L100.0500, M100.2200, L500.4050 #### [facility] [address] [place], [address] Potassium [Moles/Vol] 4.4 mmol/L Normal 3.3-5.1 [facility] Comment on above: Order Comment: 407-2 Performed By: #### L 400.0001, L100.0500, M100.2200, L500.4050 #### [facility] [address] [place], [address] Sodium [Moles/Vol] 142 mmol/L Normal 133-145 [facility] Comment on above: Order Comment: 407-2 Performed By: #### L 400.0001, L100.0500, M100.2200, L500.4050 #### [facility] [address] [place], [address] Urea nitrogen [Mass/Vol] 41 mg/dL High - [facility] Comment on above: Order Comment: 407-2 Performed By: #### L 400.0001, L100.0500, M100.2200, L500.4050 #### [facility] [address] [place], [address] Basic Metabolic Profile (BMP )on 01-08-2025 BUN Normal 07-22 [facility] Comment on above: Order Comment: 407-2 Result Comment: UTO X2 Performed By: #### L 400.0001, L100.0500, M100.2200, L500.4050 #### [facility] [address] [place], [address] BUN/CRE Normal - [facility] Comment on above: Order Comment: 407-2 Result Comment: UTO X2 Performed By: #### L 400.0001, L100.0500, M100.2200, L500.4050 #### [facility] [address] [place], [address] Calcium Normal 7.6-11.0 [facility] Comment on above: Order Comment: 407-2 Result Comment: UTO X2 Performed By: #### L 400.0001, L100.0500, M100.2200, L500.4050 #### [facility] [address] [place], [address] CL Normal 98-108 [facility] Comment on above: Order Comment: 407-2 Result Comment: UTO X2 Performed By: #### L 400.0001, L100.0500, M100.2200, L500.4050 #### [facility] [address] [place], [address] CO2 Normal 21.0-32.0 [facility] Comment on above: Order Comment: 407-2 Result Comment: UTO X2 Performed By: #### L 400.0001, L100.0500, M100.2200, L500.4050 #### [facility] [address] [place], [address] CREAT,SERUM Normal 0.70-1.20 [facility] Comment on above: Order Comment: 407-2 Result Comment: UTO X2 Performed By: #### L 400.0001, L100.0500, M100.2200, L500.4050 #### [facility] [address] [place], [address] eGFR Normal >60 [facility] Comment on above: Order Comment: -2 Result Comment: UTO X2 Performed By: #### L 400.0001, L100.0500, M100.2200, L500.4050 #### [facility] [address] [place], [address] GAP Normal 5-15 [facility] Comment on above: Order Comment: -2 Result Comment: UTO X2 Performed By: #### L 400.0001, L100.0500, M100.2200, L500.4050 #### [facility] [address] [place], [address] GLU Normal 70-99 [facility] Comment on above: Order Comment: 407-2 Result Comment: UTO X2 Performed By: #### L 400.0001, L100.0500, M100.2200, L500.4050 #### [facility] [address] [place], [address] Potassium Normal 3.3-5.1 [facility] Comment on above: Order Comment: -2 Result Comment: UTO X2 Performed By: #### L 400.0001, L100.0500, M100.2200, L500.4050 #### [facility] [address] [place], [address] Basic Metabolic Profile (BMP) Normal 133-145 [facility] Comment on above: Order Comment: 407-2 Result Comment: UTO X2 Performed By: #### L 400.0001, L100.0500, M100.2200, L500.4050 #### [facility] [address] [place], [address] CPK Total, Creatine Kinaseon 01-05-2025 CPK TOTAL 39 U/L Normal 24-195 [facility] Comment on above: Order Comment: 407-2 Performed By: #### L 400.0001, L100.0500, M100.2200, L500.4050 #### [facility] [address] [place], [address] Comprehensive Metabolic Prof ilon 01-05-2025 Albumin [Mass/Vol] 2.0 g/dL Low 3.4-4.8 [facility] Comment on above: Order Comment: 407-2 Performed By: #### L 400.0001, L100.0500, M100.2200, L500.4050 #### [facility] [address] [place], [address] Albumin/Globulin [Mass ratio] 0.5 {ratio} Low 0.9-2.4 [facility] Comment on above: Order Comment: 407-2 Performed By: #### L 400.0001, L100.0500, M100.2200, L500.4050 #### [facility] [address] [place], [address] ALK PHOS 271 U/L High 35-104 [facility] Comment on above: Order Comment: 407-2 Performed By: #### L 400.0001, L100.0500, M100.2200, L500.4050 #### [facility] [address] [place], [address] ALT [Catalytic activity/Vol] 17 U/L Normal <=34 [facility] Comment on above: Order Comment: 407-2 Performed By: #### L 400.0001, L100.0500, M100.2200, L500.4050 #### [facility] [address] [place], [address] AST [Catalytic activity/Vol] 44 U/L High <=31 [facility] Comment on above: Order Comment: 407-2 Performed By: #### L 400.0001, L100.0500, M100.2200, L500.4050 #### [facility] [address] [place], [address] Bilirubin [Mass/Vol] 0.27 mg/dL Normal 0.00-1.30 [facility] Comment on above: Order Comment: 407-2 Performed By: #### L 400.0001, L100.0500, M100.2200, L500.4050 #### [facility] [address] [place], [address] BUN/CRE 8.4 RATIO Low 10-20 [facility] Comment on above: Order Comment: 407-2 Performed By: #### L 400.0001, L100.0500, M100.2200, L500.4050 #### [facility] [address] [place], [address] Calcium [Mass/Vol] 7.8 mg/dL Normal 7.6-11.0 [facility] Comment on above: Order Comment: 407-2 Performed By: #### L 400.0001, L100.0500, M100.2200, L500.4050 #### [facility] [address] [place], [address] Chloride [Moles/Vol] 97 mmol/L Low 98-108 [facility] Comment on above: Order Comment: 407-2 Performed By: #### L 400.0001, L100.0500, M100.2200, L500.4050 #### [facility] [address] [place], [address] CO2 [Moles/Vol] 30.5 mmol/L Normal 21.0-32.0 [facility] Comment on above: Order Comment: 407-2 Performed By: #### L 400.0001, L100.0500, M100.2200, L500.4050 #### [facility] [address] [place], [address] Creatinine [Mass/Vol] 2.94 mg/dL High 0.70-1.20 [facility] Comment on above: Order Comment: 407-2 Performed By: #### L 400.0001, L100.0500, M100.2200, L500.4050 #### [facility] [address] [place], [address] GAP 9 Normal 5-15 [facility] Comment on above: Order Comment: 407-2 Performed By: #### L 400.0001, L100.0500, M100.2200, L500.4050 #### [facility] [address] [place], [address] GFR/1.73 sq M.predicted among non-blacks MDRD (S/P/Bld) [Vol rate/Area] 16 mL/min/{1.73_m2} Low >60 [facility] Comment on above: Order Comment: 407-2 Result Comment: mL/m in/1.73m2 CKD-EPI Creatinine Equation (2020) Performed By: #### L 400.0001, L100.0500, M100.2200, L500.4050 #### [facility] [address] [place], [address] Globulin (S) [Mass/Vol] 3.6 g/dL Normal 2.2-4.2 [facility] Comment on above: Order Comment: 407-2 Performed By: #### L 400.0001, L100.0500, M100.2200, L500.4050 #### [facility] [address] [place], [address] Glucose [Mass/Vol] 68 mg/dL Low 70-99 [facility] Comment on above: Order Comment: 407-2 Performed By: #### L 400.0001, L100.0500, M100.2200, L500.4050 #### [facility] [address] [place], [address] Potassium [Moles/Vol] 2.9 mmol/L Low 3.3-5.1 [facility] Comment on above: Order Comment: 407-2 Performed By: #### L 400.0001, L100.0500, M100.2200, L500.4050 #### [facility] [address] [place], [address] Sodium [Moles/Vol] 137 mmol/L Normal 133-145 [facility] Comment on above: Order Comment: 407-2 Performed By: #### L 400.0001, L100.0500, M100.2200, L500.4050 #### [facility] [address] [place], [address] T PROT 5.6 g/dL Low 5.9-8.4 [facility] Comment on above: Order Comment: 407-2 Performed By: #### L 400.0001, L100.0500, M100.2200, L500.4050 #### [facility] [address] [place], [address] Urea nitrogen [Mass/Vol] 25 mg/dL High 4-19 [facility] Comment on above: Order Comment: 407-2 Performed By: #### L 400.0001, L100.0500, M100.2200, L500.4050 #### [facility] [address] [place], [address] Lipid Profileon 01-05-2025 CHOL:HDL 2.38 Normal [facility] Comment on above: Order Comment: 407-2 Performed By: #### L 400.0001, L100.0500, M100.2200, L500.4050 #### [facility] [address] [place], [address] Cholesterol [Mass/Vol] 106 mg/dL Normal <=200 [facility] Comment on above: Order Comment: 4072 Result Comment: Chol esterol level, Desirable <200 mg/dL Borderline high cholesterol 200-239 mg/dL High cholesterol >=240 mg/dL Recommendations of the NCEP Adult Treatment Panel for the following risk-cutoff thresholds for the [place] population. Performed By: #### L 400.0001, L100.0500, M100.2200, L500.4050 #### [facility] [address] [place], [address] Cholesterol in HDL [Mass/Vol] 45 mg/dL Normal [facility] Comment on above: Order Comment: 2 Result Comment: Bri onal Cholesterol Education Program (NCEP) guidelines: <40 mg/dL: Low HDL-cholesterol (major risk factor for CHD) >= 60 mg/dL: High HDL-cholesterol (negative risk factor for CHD) HDL-cholesterol is affected by a number of factors, e.g. smoking, exercise, hormones, sex and age. Performed By: #### L 400.0001, L100.0500, M100.2200, L500.4050 #### [facility] [address] [place], [address] Cholesterol in LDL [Mass/Vol] 50 mg/dL Normal [facility] Comment on above: Order Comment: 407-2 Result Comment: Bord jyzbwh=985-307 mg/dL Higher Gwkd=085 mg/dL or greater Friedwald Equation for LDL-C Performed By: #### L 400.0001, L100.0500, M100.2200, L500.4050 #### [facility] [address] [place], [address] Cholesterol in VLDL [Mass/Vol] 12 mg/dL Normal 5-40 [facility] Comment on above: Order Comment: 407-2 Performed By: #### L 400.0001, L100.0500, M100.2200, L500.4050 #### [facility] [address] [place], [address] Triglyceride [Mass/Vol] 58 mg/dL Normal [facility] Comment on above: Order Comment: 407-2 Result Comment: The drugs N-Acetylcysteine and Metamizole may falsely depress this assay. Normal range: <150 mg/dL Borderline High: 150-199 mg/dL High: 200-499 mg/dL Very High: >500 mg/dL Performed By: #### L 400.0001, L100.0500, M100.2200, L500.4050 #### [facility] [address] [place], [address] ED Nursing Noteon 12-28-2024 ED Nursing Note Normal [facility] ED Provider Noteon ED Provider Note Normal [facility] Laboratory - Chemistry and C hemistry - challengeon 12-28-2024 Glucose [Mass/Vol] 80 mg/dL 70 - 100 mg/dL [facility] No Panel Informationon 12-28 Interpretation and review of laboratory results Normal [facility] Performed by: Haley Kirk, [address] [place] [address] [place] [address] CLIA ID: [id number] [facility] Basic Metabolic Profile (BMP )on 12-25-2024 CO2 [Moles/Vol] 24.2 mmol/L Normal 21.0-32.0 [facility] Comment on above: Result Comment: AMENDED REPORT 12/25/24 1007 CO2 previously reported as: 24.1 mmol/L Performed By: #### L 100.0500, L500.2500 #### [facility] [address] [place], [address] GAP 14 Normal 5-15 [facility] Comment on above: Performed By: #### L 100.0500, L500.2500 #### [facility] [address] [place], [address] CBC-Complete Blood Cnt No Di ffon 12-25-2024 Erythrocyte distribution width (RBC) [Ratio] 17.0 % High 11.6-14.6 [facility] Comment on above: Performed By: #### L 100.0500, L500.2500 #### [facility] [address] [place], [address] Hematocrit (Bld) [Volume fraction] 26.1 % Low 37-47 [facility] Comment on above: Performed By: #### L 100.0500, L500.2500 #### [facility] [address] [place], [address] Hemoglobin (Bld) [Mass/Vol] 8.5 g/dL Low 12.0-15.0 [facility] Comment on above: Performed By: #### L 100.0500, L500.2500 #### [facility] [address] [place], [address] MCH (RBC) [Entitic mass] 31.5 pg Normal 27.0-32.0 [facility] Comment on above: Performed By: #### L 100.0500, L500.2500 #### [facility] [address] [place], [address] MCHC (RBC) [Mass/Vol] 32.6 g/dL Normal 32-36 [facility] Comment on above: Performed By: #### L 100.0500, L500.2500 #### [facility] [address] [place], [address] MCV (RBC) [Entitic vol] 96.7 fL Normal 81-99 [facility] Comment on above: Performed By: #### L 100.0500, L500.2500 #### [facility] [address] [place], [address] Platelet mean volume (Bld) [Entitic vol] 10.9 fL Normal 6.2-12.0 [facility] Comment on above: Performed By: #### L 100.0500, L500.2500 #### [facility] [address] [place], [address] Platelets (Bld) [#/Vol] 435 10*3/uL Normal 150-450 [facility] Comment on above: Performed By: #### L 100.0500, L500.2500 #### [facility] [address] [place], [address] RBC (Bld) [#/Vol] 2.70 10*6/uL Low 4.2-5.4 [facility] Comment on above: Performed By: #### L 100.0500, L500.2500 #### [facility] [address] [place], [address] RDW SD 58.0 fl High 35.1-43.9 [facility] Comment on above: Performed By: #### L 100.0500, L500.2500 #### [facility] [address] [place], [address] WBC (Bld) [#/Vol] 11.2 10*3/uL High 4.4-11.0 [facility] Comment on above: Performed By: #### L 100.0500, L500.2500 #### [facility] [address] [place], [address] [id number] 12-20-2024 [id number] Transportation confirmed for 630. Called and spoke to brother Deshawn with update on time of discharge. RN and assistant community manager notified via secure chat. [facility] [phone] Discharge med list transmitted to [facility] via [facility] per TCC request. [facility] [id number] [facility] [phone] Discharge order note d in epic. [facility] tasked to set up cot transport for return to [facility]. [facility] CBC (HEMOGRAM)on 12-20-2024 Erythrocyte distribution width (RBC) [Ratio] 15.9 % High 11.5-15.0 [facility] Comment on above: Performed By: #### L AB294 ####Civil Engineering Design Draftsperson: PHILLY FRANCO ([phone])[address] Hematocrit (Bld) [Volume fraction] 20.9 % Low 35.0-47.0 [facility] Comment on above: Performed By: #### L AB294 ####Civil Engineering Design Draftsperson: PHILLY FRANCO ([id number])[address] Hemoglobin (Bld) [Mass/Vol] 7.1 g/dL Low 11.7-16.0 [facility] Comment on above: Performed By: #### L AB294 ####[employer] Design Draftsperson: PHILLY FRANCO ([id number])[address] MCH (RBC) [Entitic mass] 31.4 pg Normal 26.0-34.0 [facility] Comment on above: Performed By: #### L AB294 ####Civil Engineering Design Draftsperson: PHILLY FRANCO ([id number])[address] MCHC 34.0 % Normal 30.5-36.0 [facility] Comment on above: Performed By: #### L AB294 ####Civil Engineering Design Draftsperson: PHILLY FRANCO ([id number])[facility] ([facility])[address] [place] [address] MCV (RBC) [Entitic vol] 92.5 fL Normal 77.0-99.0 [facility] Comment on above: Performed By: #### L AB294 ####Civil Engineering Design Draftsperson: PHILLY FRANCO ([id number])[facility])[address] [place] [address] Platelet mean volume (Bld) [Entitic vol] 10.8 fL Normal 9.0-12.7 [facility] Comment on above: Performed By: #### L AB294 ####Civil Engineering Design Draftsperson: PHILLY FRANCO ([id number])[facility])[address] [place] [address] Platelets (Bld) [#/Vol] 237 10*3/uL Normal 140-440 [facility] Comment on above: Performed By: #### L AB294 ####Civil Engineering Design Draftsperson: PHILLY FRANCO ([id number])[facility] ([facility])[address] [place] [address] RBC (Bld) [#/Vol] 2.26 10*6/uL Low 3.80-5.20 [facility] Comment on above: Performed By: #### L AB294 ####Civil Engineering Design Draftsperson: PHILLY FRANCO ([id number])[facility])[address] [place] [address] WBC (Bld) [#/Vol] 12.1 10*3/uL High 3.6-10.7 [facility] Comment on above: Performed By: #### L AB294 ####Civil Engineering Design Draftsperson: PHILLY FRANCO ([id number])[facility])[address] [place] [address] CBC panel Auto (Bld)on 12-20 Erythrocyte distribution width (RBC) [Ratio] 15.9 % High 11.5 - 15.0 % [facility] Hematocrit (Bld) [Volume fraction] 20.9 % Low 35.0 - 47.0 % [facility] Hemoglobin (Bld) [Mass/Vol] 7.1 g/dL Low 11.7 - 16.0 g/dL [facility] Interpretation and review of laboratory results Abnormal [facility] MCH (RBC) [Entitic mass] 31.4 pg 26.0 - 34.0 pg [facility] MCHC (RBC) [Mass/Vol] 34 % 30.5 - 36.0 % [facility] MCV (RBC) [Entitic vol] 92.5 fL 77.0 - 99.0 fL [facility] Platelet mean volume (Bld) [Entitic vol] 10.8 fL 9.0 - 12.7 fL [facility] Platelets (Bld) [#/Vol] 237 10*3/uL 140 - 440 10*3/uL [facility] RBC (Bld) [#/Vol] 2.26 10*6/uL Low 3.80 - 5.2 0 10*6/uL [facility] WBC (Bld) [#/Vol] 12.1 10*3/uL High 3.6 - 10.7 10*3/uL [facility] COMPREHENSIVE METABOLIC PANE Fam 12-20-2024 Albumin [Mass/Vol] 1.1 g/dL Low 3.4-4.8 [facility] Comment on above: Performed By: #### L AB17 ####Civil Engineering Design Draftsperson: PHILLY FRANCO ([id number])[address] ALP [Catalytic activity/Vol] 155 U/L High 40-150 [facility] Comment on above: Performed By: #### L AB17 ####Civil Engineering Design Draftsperson: PHILLY FRANCO ([phone])[facility])[address] [place] [address] ALT [Catalytic activity/Vol] U/L Normal <30 [facility] Comment on above: Performed By: #### L AB17 ####Civil Engineering Design Draftsperson: PHILLY FRANCO ([id number])[facility])[address] [place] [address] Anion gap [Moles/Vol] 7 mmol/L Normal 3-13 [facility] Comment on above: Performed By: #### L AB17 ####Civil Engineering Design Draftsperson: PHILLY FRANCO ([id number])[facility] [place] [address] AST [Catalytic activity/Vol] 57 U/L High <34 [facility] Comment on above: Result Comment: TCPo tential interference from hemolysis Performed By: #### L AB17 ####Civil Engineering Design Draftsperson: PHILLY FRANCO ([id number])[facility] ([facility])[address] [place] [address] Bilirubin [Mass/Vol] 0.6 mg/dL Normal <1.2 [facility] Comment on above: Performed By: #### L AB17 ####Civil [employer] Design Draftsperson: PHILLY FRANCO ([id number])[facility] ([facility])[address] [place] [address] Calcium [Mass/Vol] 6.5 mg/dL Low 8.8-10.0 [facility] Comment on above: Performed By: #### L AB17 ####[employer] Design Draftsperson: PHILLY FRANCO ([id number])[facility] [place] [address] Chloride [Moles/Vol] 106 mmol/L Normal 98-107 [facility] Comment on above: Performed By: #### L [id number] ####Civil Engineering Design Draftsperson: PHILLY FRANCO ([id number])[facility] ([facility])[address] [place] [address] [place] CO2 [Moles/Vol] 21 mmol/L Low 23-31 [facility] Comment on above: Performed By: #### L [id number] ####Civil Engineering Design Draftsperson: PHILLY FRANCO ([id number])[facility] ([facility])[address] [place] [address] Creatinine [Mass/Vol] 2.84 mg/dL High 0.57-1.11 [facility] Comment on above: Performed By: #### L [id number] ####Civil Engineering Design Draftsperson: PHILLY FRANCO ([id number])[facility] ([facility])[address] [place] [address] [place] GLOMERULAR FILTRATION RATE ML/MIN/1.73 SQ M.PREDICTED 16.9 mL/min/1.73m*2 Low >60.0 [facility] Comment on above: Result Comment: Calc ulation based on the Chronic Kidney Disease Epidemiology Collaboration (CKD-EPI) equation refit without adjustment for race Performed By: #### L [id number] ####Civil Engineering Design Draftsperson: PHILLY FRANCO ([id number])[facility])[address] [place] [address] Glucose [Mass/Vol] 72 mg/dL Low 82-115 [facility] Comment on above: Performed By: #### L AB17 ####Civil Engineering Design Draftsperson: PHILLY FRANCO ([id number])[facility])[address] [place] [address] Potassium [Moles/Vol] 4.3 mmol/L Normal 3.5-5.1 [facility] Comment on above: Result Comment: [facility] potassium values may be up to 0.5 mmol/L lower than serum values. Performed By: #### L [id number] ####Civil Engineering Design Draftsperson: PHILLY FRANCO ([id number])[facility])[address] [place] [address] Protein [Mass/Vol] 5.1 g/dL Low 6.4-8.3 [facility] Comment on above: Performed By: #### L AB17 ####Civil Engineering Design Draftsperson: PHILLY FRANCO ([id number])[facility])[address] [place] [address] Sodium [Moles/Vol] 134 mmol/L Low 136-145 [facility] Comment on above: Performed By: #### L AB17 ####Civil Engineering Design Draftsperson: PHILLY FRANCO ([id number])[facility])[address] [place] [address] Urea nitrogen [Mass/Vol] 15 mg/dL Normal 9-23 [facility] Comment on above: Performed By: #### L AB17 ####Civil Engineering Design Draftsperson: PHILLY FRANCO ([id number])[facility])[address] [place] [address] Comprehensive metabolic 1998 panelon 12-20-2024 Albumin [Mass/Vol] 1.1 g/dL Low 3.4 - 4.8 g/dL [facility] ALP [Catalytic activity/Vol] 155 U/L High 40 - 150 U/L [facility] ALT [Catalytic activity/Vol] U/L NINF - 30 U/L [facility] Anion gap [Moles/Vol] 7 mmol/L 3 - 13 mmol/L [facility] AST [Catalytic activity/Vol] 57 U/L High NINF - 34 U/L [facility] Bilirubin [Mass/Vol] 0.6 mg/dL NINF - 1.2 mg/dL [facility] Calcium [Mass/Vol] 6.5 mg/dL Low 8.8 - 10. 0 mg/dL [facility] Chloride [Moles/Vol] 106 mmol/L 98 - 10 7 mmol/L [facility] CO2 [Moles/Vol] 21 mmol/L Low 23 - 31 mmol/L [facility] Creatinine [Mass/Vol] 2.84 mg/dL High 0.57 - 1.11 mg/dL [facility] GFR/1.73 sq M.predicted (S/P/Bld) [Vol rate/Area] 16.9 mL/min Low - PINF [facility] Glucose [Mass/Vol] 72 mg/dL Low 82 - 115 mg/dL [facility] Interpretation and review of laboratory results Abnormal [facility] Potassium [Moles/Vol] 4.3 mmol/L 3.5 - 5.1 mmol/L [facility] Protein [Mass/Vol] 5.1 g/dL Low 6.4 - 8.3 g/dL [facility] Sodium [Moles/Vol] 134 mmol/L Low 136 - 145 mmol/L [facility] Urea nitrogen [Mass/Vol] 15 mg/dL 9 - 23 mg/dL [facility] - Chemistry and C hemistry - challengeon 12-20-2024 Glucose [Mass/Vol] 72 mg/dL 70 - 100 mg/dL [facility] Glucose [Mass/Vol] 73 mg/dL 70 - 100 mg/dL [facility] Glucose [Mass/Vol] 88 mg/dL 70 - 100 mg/dL [facility] No Panel Informationon 12-20 Interpretation and review of laboratory results Normal [facility] Interpretation and review of laboratory results Normal [facility] Interpretation and review of laboratory results Normal [facility] Nursing Noteon 12-20-2024 Nursing Note Attempted to call report to [facility]. No answer. Normal [facility] Nursing Note Discharge order placed. IVS removed. Transport here to take pt to SNF. Normal [facility] Nursing Note Normal [facility] Progress Noteon 12-20-2024 Progress Note Normal [facility] Progress Note Normal [facility] Progress Note Normal [facility] Progress Note Normal [facility] CBC (HEMOGRAM)on 12-19-2024 Erythrocyte distribution width (RBC) [Ratio] 15.5 % High 11.5-15.0 [facility] Comment on above: Performed By: #### L [id number] ####Civil Engineering Design Draftsperson: PHILLY FRANCO ([id number])[address] Hematocrit (Bld) [Volume fraction] 23.6 % Low 35.0-47.0 [facility] Comment on above: Performed By: #### L [id number] ####Civil Engineering Design Draftsperson: PHILLY FRANCO ([id number])[address] Hemoglobin (Bld) [Mass/Vol] 8.2 g/dL Low 11.7-16.0 [facility] Comment on above: Performed By: #### L [id number] ####Civil Engineering Design Draftsperson: PHILLY FRANCO ([id number])[address] MCH (RBC) [Entitic mass] 30.9 pg Normal 26.0-34.0 [facility] Comment on above: Performed By: #### L [id number] ####Civil Engineering Design Draftsperson: PHILLY FRANCO ([id number])[address] MCHC 34.7 % Normal 30.5-36.0 [facility] Comment on above: Performed By: #### L [id number] ####Civil Engineering Design Draftsperson: PHILLY FRANCO ([id number])[facility] ([facility])[address] [place] [address] MCV (RBC) [Entitic vol] 89.1 fL Normal 77.0-99.0 S [facility] Comment on above: Performed By: #### L [id number] ####Civil Engineering Design Draftsperson: PHILLY FRANCO ([id number])[facility] ([facility])[address] [place] [address] Platelet mean volume (Bld) [Entitic vol] 10.7 fL Normal 9.0-12.7 [facility] Comment on above: Performed By: #### L [id number] ####Civil Engineering Design Draftsperson: PHILLY FRANCO ([id number])[facility] ([facility])[address] [place] [address] Platelets (Bld) [#/Vol] 274 10*3/uL Normal 140-440 [facility] Comment on above: Performed By: #### L [id number] ####Civil Engineering Design Draftsperson: PHILLY FRANCO ([id number])[facility] ([facility])[address] [place] [address] RBC (Bld) [#/Vol] 2.65 10*6/uL Low 3.80-5.20 [facility] Comment on above: Performed By: #### L [id number] ####Civil Engineering Design Draftsperson: PHILLY FRANCO ([id number])[facility] ([facility])[address] [place] [address] WBC (Bld) [#/Vol] 15.7 10*3/uL High 3.6-10.7 [facility] Comment on above: Performed By: #### L [id number] ####Civil Engineering Design Draftsperson: PHILLY FRANCO ([id number])[facility])[address] [place] [address] CBC panel Auto (Bld)on 12-19 Erythrocyte distribution width (RBC) [Ratio] 15.5 % High 11.5 - 15.0 % [facility] Hematocrit (Bld) [Volume fraction] 23.6 % Low 35.0 - 47.0 % [facility] Hemoglobin (Bld) [Mass/Vol] 8.2 g/dL Low 11.7 - 16.0 g/dL [facility] Interpretation and review of laboratory results Abnormal [facility] MCH (RBC) [Entitic mass] 30.9 pg 26.0 - 34.0 pg [facility] MCHC (RBC) [Mass/Vol] 34.7 % 30.5 - 36.0 % [facility] MCV (RBC) [Entitic vol] 89.1 fL 77.0 - 99.0 fL [facility] Platelet mean volume (Bld) [Entitic vol] 10.7 fL 9.0 - 12.7 fL [facility] Platelets (Bld) [#/Vol] 274 10*3/uL 140 - 440 10*3/uL [facility] RBC (Bld) [#/Vol] 2.65 10*6/uL Low 3.80 - 5.2 0 10*6/uL [facility] WBC (Bld) [#/Vol] 15.7 10*3/uL High 3.6 - 10.7 10*3/uL [facility] COMPREHENSIVE METABOLIC PANE Fam 12-19-2024 Albumin [Mass/Vol] 1.2 g/dL Low 3.4-4.8 [facility] Comment on above: Performed By: #### L AB17 ####Civil Engineering Design Draftsperson: PHILLY FRANCO ([id number])[facility] ([facility])[address] [place] [address] ALP [Catalytic activity/Vol] 144 U/L Normal 40-150 [facility] Comment on above: Performed By: #### L AB17 ####Civil Engineering Design Draftsperson: PHILLY FRANCO ([id number])[facility] ([facility])[address] [place] [address] ALT [Catalytic activity/Vol] U/L Normal <30 [facility] Comment on above: Performed By: #### L AB17 ####Civil Engineering Design Draftsperson: PHILLY FRANCO ([id number])[facility] ([facility])[address] [place] [address] Anion gap [Moles/Vol] 8 mmol/L Normal 3-13 [facility] Comment on above: Performed By: #### L AB17 ####Civil Engineering Design Draftsperson: PHILLY FRANCO ([id number])[facility] ([facility])[address] [place] [address] AST [Catalytic activity/Vol] 49 U/L High <34 [facility] Comment on above: Performed By: #### L AB17 ####Civil Engineering Design Draftsperson: PHILLY FRANCO ([id number])[facility] ([facility])[address] [place] [address] Bilirubin [Mass/Vol] 0.5 mg/dL Normal <1.2 [facility] Comment on above: Performed By: #### L AB17 ####Civil Engineering Design Draftsperson: PHILLY FRANCO ([id number])[facility] ([facility])[address] [place] [address] Calcium [Mass/Vol] 7.3 mg/dL Low 8.8-10.0 [facility] Comment on above: Performed By: #### L AB17 ####Civil Engineering Design Draftsperson: PHILLY FRANCO ([id number])[facility] [place] [address] [place] Chloride [Moles/Vol] 102 mmol/L Normal 98-107 [facility] Comment on above: Performed By: #### L AB17 ####Civil Engineering Design Draftsperson: PHILLY FRANCO ([id number])[facility] ([facility])[address] [place] [address] [place] CO2 [Moles/Vol] 25 mmol/L Normal 23-31 [facility] Comment on above: Performed By: #### L AB17 ####Civil Engineering Design Draftsperson: PHILLY FRANCO ([id number])[facility] ([facility])[address] [place] [address] Creatinine [Mass/Vol] 2.25 mg/dL High 0.57-1.11 [facility] Comment on above: Performed By: #### L AB17 ####Civil Engineering Design Draftsperson: PHILLY FRANCO ([id number])[facility] ([facility])[address] [place] [address] GLOMERULAR FILTRATION RATE ML/MIN/1.73 SQ M.PREDICTED 22.4 mL/min/1.73m*2 Low >60.0 [facility] Comment on above: Result Comment: Calc ulation based on the Chronic Kidney Disease Epidemiology Collaboration (CKD-EPI) equation refit without adjustment for race Performed By: #### L AB17 ####Civil Engineering Design Draftsperson: PHILLY FRANCO ([id number])[facility])[address] [place] [address] Glucose [Mass/Vol] 73 mg/dL Low 82-115 [facility] Comment on above: Performed By: #### L AB17 ####Civil Engineering Design Draftsperson: PHILLY FRANCO ([id number])[facility])[address] [place] [address] Potassium [Moles/Vol] 3.9 mmol/L Normal 3.5-5.1 [facility] Comment on above: Result Comment: [facility] potassium values may be up to 0.5 mmol/L lower than serum values. Performed By: #### L AB17 ####Civil Engineering Design Draftsperson: PHILLY FRANCO ([id number])[facility])[address] [place] [address] Protein [Mass/Vol] 5.3 g/dL Low 6.4-8.3 [facility] Comment on above: Performed By: #### L AB17 ####Civil Engineering Design Draftsperson: PHILLY FRANCO ([id number])[facility])[address] [place] [address] [place] Sodium [Moles/Vol] 135 mmol/L Low 136-145 [facility] Comment on above: Performed By: #### L AB17 ####Civil Engineering Design Draftsperson: PHILLY FRANCO ([id number])[facility])[address] [place] [address] [place] Urea nitrogen [Mass/Vol] 11 mg/dL Normal 9-23 [facility] Comment on above: Performed By: #### L AB17 ####Civil Engineering Design Draftsperson: PHILLY FRANCO ([id number])[facility])[address] Comprehensive metabolic 1998 panelOrdered By: Mak Hobbs on 12-19-2024 Albumin [Mass/Vol] 1.2 g/dL Low 3.4 - 4.8 g/dL [facility] ALP [Catalytic activity/Vol] 144 U/L 40 - 150 U/L [facility] ALT [Catalytic activity/Vol] U/L NINF - 30 U/L [facility] Anion gap [Moles/Vol] 8 mmol/L 3 - 13 mmol/L [facility] AST [Catalytic activity/Vol] 49 U/L High NINF - 34 U/L [facility] Bilirubin [Mass/Vol] 0.5 mg/dL NINF - 1.2 mg/dL [facility] Calcium [Mass/Vol] 7.3 mg/dL Low 8.8 - 10. 0 mg/dL [facility] Chloride [Moles/Vol] 102 mmol/L 98 - 10 7 mmol/L [facility] CO2 [Moles/Vol] 25 mmol/L 23 - 31 mmol/L [facility] Creatinine [Mass/Vol] 2.25 mg/dL High 0.57 - 1.11 mg/dL [facility] GFR/1.73 sq M.predicted (S/P/Bld) [Vol rate/Area] 22.4 mL/min Low - PINF [facility] Glucose [Mass/Vol] 73 mg/dL Low 82 - 115 mg/dL [facility] Interpretation and review of laboratory results Abnormal [facility] Potassium [Moles/Vol] 3.9 mmol/L 3.5 - 5.1 mmol/L [facility] Protein [Mass/Vol] 5.3 g/dL Low 6.4 - 8.3 g/dL [facility] Sodium [Moles/Vol] 135 mmol/L Low 136 - 145 mmol/L [facility] Urea nitrogen [Mass/Vol] 11 mg/dL 9 - 23 mg/dL [facility] HEMOGLOBIN AND HEMATOCRIT, B Noemi 12-19-2024 Hematocrit (Bld) [Volume fraction] 24.0 % Low 35.0-47.0 [facility] Comment on above: Performed By: #### L [id number] ####Civil Engineering Design Draftsperson: PHILLY FRANCO ([id number])[facility] ([facility])[address] [place] [address] Hemoglobin (Bld) [Mass/Vol] 8.1 g/dL Low 11.7-16.0 [facility] Comment on above: Performed By: #### L AB753 ####Civil Engineering Design Draftsperson: PHILLY FRANCO ([id number])[facility] ([facility])[address] Hemoglobin (Bld) [Mass/Vol]o n 12-19-2024 Hematocrit (Bld) [Volume fraction] 24 % Low 35.0 - 47.0 % [facility] Interpretation and review of laboratory results Abnormal [facility] - Chemistry and C hemistry - challengeon 12-19-2024 Glucose [Mass/Vol] 84 mg/dL 70 - 100 mg/dL [facility] Glucose [Mass/Vol] 57 mg/dL Low 70 - 100 mg/dL [facility] Glucose [Mass/Vol] 67 mg/dL Low 70 - 100 mg/dL [facility] Laboratory - Hematology and Cell countson 12-19-2024 Hemoglobin (Bld) [Mass/Vol] 8.1 g/dL Low 11.7 - 16.0 g/dL [facility] No Panel Informationon 12-19 Interpretation and review of laboratory results Normal [facility] Interpretation and review of laboratory results Abnormal [facility] Interpretation and review of laboratory results Abnormal [facility] Nursing Noteon 12-19-2024 Nursing Note Normal [facility] Progress Noteon 12-19-2024 Progress Note Normal [facility] Progress Note Normal [facility] Progress Note Normal [facility] Progress Note Normal [facility] Progress Note Normal [facility] Progress Note Normal [facility] Progress Note Normal [facility] Progress Note Normal [facility] [id number] 12-18-2024 [id number] Normal [facility] [id number] 12-18-2024 [id number] Normal [facility] Anesthesia Noteon 12-18-2024 Anesthesia Note Normal [facility] Anesthesia Note Normal [facility] CBC (HEMOGRAM)on 12-18-2024 Erythrocyte distribution width (RBC) [Ratio] 14.9 % Normal 11.5-15.0 [facility] Comment on above: Performed By: #### L [id number] ####Civil Engineering Design Draftsperson: PHILLY FRANCO ([id number])[address] Hematocrit (Bld) [Volume fraction] 25.3 % Low 35.0-47.0 [facility] Comment on above: Performed By: #### L [id number] ####Civil Engineering Design Draftsperson: PHILLY FRANCO ([id number])[facility])[address] [place] [address] Hemoglobin (Bld) [Mass/Vol] 9.0 g/dL Low 11.7-16.0 [facility] Comment on above: Performed By: #### L [id number] ####Civil Engineering Design Draftsperson: PHILLY FRANCO ([id number])[address] MCH (RBC) [Entitic mass] 30.8 pg Normal 26.0-34.0 [facility] Comment on above: Performed By: #### L [id number] ####Civil Engineering Design Draftsperson: PHILLY FRANCO ([id number])[facility])[address] [place] [address] MCHC 35.6 % Normal 30.5-36.0 [facility] Comment on above: Performed By: #### L [id number] ####Civil Engineering Design Draftsperson: PHILLY FRANCO ([id number])[address] MCV (RBC) [Entitic vol] 86.6 fL Normal 77.0-99.0 S [facility] Comment on above: Performed By: #### L [id number] ####Civil Engineering Design Draftsperson: PHILLY FRANCO ([id number])[facility])[address] [place] [address] Platelet mean volume (Bld) [Entitic vol] 10.7 fL Normal 9.0-12.7 [facility] Comment on above: Performed By: #### L [id number] ####Civil Engineering Design Draftsperson: PHILLY FRANCO ([id number])[facility] ([facility])[address] [place] [address] Platelets (Bld) [#/Vol] 327 10*3/uL Normal 140-440 [facility] Comment on above: Performed By: #### L [id number] ####Civil Engineering Design Draftsperson: PHILLY FRANCO ([phone])[facility])[address] [place] [address] RBC (Bld) [#/Vol] 2.92 10*6/uL Low 3.80-5.20 [facility] Comment on above: Performed By: #### L [id number] ####Civil Engineering Design Draftsperson: PHILLY FRANCO ([id number])[facility])[address] [place] [address] WBC (Bld) [#/Vol] 19.3 10*3/uL High 3.6-10.7 [facility] Comment on above: Performed By: #### L [id number] ####Civil Engineering Design Draftsperson: PHILLY FRANCO ([id number])[facility] ([facility])[address] [place] [address] CBC panel Auto (Bld)on 12-18 Erythrocyte distribution width (RBC) [Ratio] 14.9 % 11.5 - 15.0 % [facility] Hematocrit (Bld) [Volume fraction] 25.3 % Low 35.0 - 47.0 % [facility] Hemoglobin (Bld) [Mass/Vol] 9 g/dL Low 11.7 - 16.0 g/dL [facility] Interpretation and review of laboratory results Abnormal [facility] MCH (RBC) [Entitic mass] 30.8 pg 26.0 - 34.0 pg [facility] MCHC (RBC) [Mass/Vol] 35.6 % 30.5 - 36.0 % [facility] MCV (RBC) [Entitic vol] 86.6 fL 77.0 - 99.0 fL [facility] Platelet mean volume (Bld) [Entitic vol] 10.7 fL 9.0 - 12.7 fL [facility] Platelets (Bld) [#/Vol] 327 10*3/uL 140 - 440 10*3/uL [facility] RBC (Bld) [#/Vol] 2.92 10*6/uL Low 3.80 - 5.2 0 10*6/uL [facility] WBC (Bld) [#/Vol] 19.3 10*3/uL High 3.6 - 10.7 10*3/uL [facility] COMPREHENSIVE METABOLIC PANE Fam 12-18-2024 Albumin [Mass/Vol] 1.3 g/dL Low 3.4-4.8 [facility] Comment on above: Performed By: #### L AB17 ####Civil Engineering Design Draftsperson: PHILYL FRANCO ([id number])[facility] ([facility])[address] [place] [address] ALP [Catalytic activity/Vol] 136 U/L Normal 40-150 [facility] Comment on above: Performed By: #### L AB17 ####Civil Engineering Design Draftsperson: PHILLY FRANCO ([id number])[facility] ([facility])[address] [place] [address] ALT [Catalytic activity/Vol] 6 U/L Normal <30 [facility] Comment on above: Performed By: #### L AB17 ####Civil Engineering Design Draftsperson: PHILLY FRANCO ([id number])[facility])[address] [place] [address] Anion gap [Moles/Vol] 6 mmol/L Normal 3-13 [facility] Comment on above: Performed By: #### L AB17 ####Civil Engineering Design Draftsperson: PHILLY FRANCO ([phone])[facility])[address] [place] [address] AST [Catalytic activity/Vol] 51 U/L High <34 [facility] Comment on above: Performed By: #### L AB17 ####Civil Engineering Design Draftsperson: PHILLY FRANCO ([id number])[facility])[address] [place] [address] Bilirubin [Mass/Vol] 0.5 mg/dL Normal <1.2 [facility] Comment on above: Performed By: #### L AB17 ####Civil Engineering Design Draftsperson: PHILLY FRANCO ([id number])[facility] [place] [address] Calcium [Mass/Vol] 7.3 mg/dL Low 8.8-10.0 [facility] Comment on above: Performed By: #### L AB17 ####Civil Engineering Design Draftsperson: HPILLY FRANCO ([id number])[facility] ([facility])[address] [place] [address] Chloride [Moles/Vol] 97 mmol/L Low 98-107 [facility] Comment on above: Performed By: #### L AB17 ####Civil Engineering Design Draftsperson: PHILLY FRANCO ([id number])[facility] ([facility])[address] [place] [address] CO2 [Moles/Vol] 25 mmol/L Normal 23-31 [facility] Comment on above: Performed By: #### L AB17 ####Civil Engineering Design Draftsperson: PHILLY FRANCO ([phone])[facility] ([facility])[address] [place] [address] Creatinine [Mass/Vol] 3.46 mg/dL High 0.57-1.11 [facility] Comment on above: Performed By: #### L AB17 ####Civil Engineering Design Draftsperson: PHILLY FRANCO ([id number])[facility])[address] [place] [address] GLOMERULAR FILTRATION RATE ML/MIN/1.73 SQ M.PREDICTED 13.4 mL/min/1.73m*2 Low >60.0 [facility] Comment on above: Result Comment: Calc ulation based on the Chronic Kidney Disease Epidemiology Collaboration (CKD-EPI) equation refit without adjustment for race Performed By: #### L AB17 ####Civil Engineering Design Draftsperson: PHILLY FRANCO ([id number])[facility])[address] [place] [address] Glucose [Mass/Vol] 89 mg/dL Normal 82-115 [facility] Comment on above: Performed By: #### L AB17 ####Civil Engineering Design Draftsperson: PHILLY FRANCO ([id number])[facility] [place] [address] Potassium [Moles/Vol] 4.4 mmol/L Normal 3.5-5.1 [facility] Comment on above: Result Comment: [facility] potassium values may be up to 0.5 mmol/L lower than serum values. Performed By: #### L AB17 ####Civil Engineering Design Draftsperson: PHILLY FRANCO ([id number])[facility])[address] [place] [address] Protein [Mass/Vol] 5.5 g/dL Low 6.4-8.3 [facility] Comment on above: Performed By: #### L AB17 ####Civil Engineering Design Draftsperson: PHILLY FRANCO ([id number])[facility])[address] [place] [address] Sodium [Moles/Vol] 128 mmol/L Low 136-145 [facility] Comment on above: Performed By: #### L AB17 ####Civil Engineering Design Draftsperson: PHILLY FRANCO ([phone])[facility])[address] [place] [address] Urea nitrogen [Mass/Vol] 18 mg/dL Normal 9-23 [facility] Comment on above: Performed By: #### L AB17 ####Civil Engineering Design Draftsperson: PHILLY FRANCO ([id number])[facility])[address] [place] [address] Comprehensive metabolic 1998 panelon 12-18-2024 Albumin [Mass/Vol] 1.3 g/dL Low 3.4 - 4.8 g/dL [facility] ALP [Catalytic activity/Vol] 136 U/L 40 - 150 U/L [facility] ALT [Catalytic activity/Vol] 6 U/L NINF - 30 U/L [facility] Anion gap [Moles/Vol] 6 mmol/L 3 - 13 mmol/L [facility] AST [Catalytic activity/Vol] 51 U/L High NINF - 34 U/L [facility] Bilirubin [Mass/Vol] 0.5 mg/dL NINF - 1.2 mg/dL [facility] Calcium [Mass/Vol] 7.3 mg/dL Low 8.8 - 10. 0 mg/dL [facility] Chloride [Moles/Vol] 97 mmol/L Low 98 - 10 7 mmol/L [facility] CO2 [Moles/Vol] 25 mmol/L 23 - 31 mmol/L [facility] Creatinine [Mass/Vol] 3.46 mg/dL High 0.57 - 1.11 mg/dL [facility] GFR/1.73 sq M.predicted (S/P/Bld) [Vol rate/Area] 13.4 mL/min Low - PINF [facility] Glucose [Mass/Vol] 89 mg/dL 82 - 115 mg/dL [facility] Interpretation and review of laboratory results Abnormal [facility] Potassium [Moles/Vol] 4.4 mmol/L 3.5 - 5.1 mmol/L [facility] Protein [Mass/Vol] 5.5 g/dL Low 6.4 - 8.3 g/dL [facility] Sodium [Moles/Vol] 128 mmol/L Low 136 - 145 mmol/L [facility] Urea nitrogen [Mass/Vol] 18 mg/dL 9 - 23 mg/dL [facility] HEMOGLOBIN AND HEMATOCRIT, B [facility] 12-18-2024 Hematocrit (Bld) [Volume fraction] 22.6 % Low 35.0-47.0 [facility] Comment on above: Performed By: #### L AB753 ####Civil Engineering Design Draftsperson: PHILLY FRANCO ([id number])[address] Hemoglobin (Bld) [Mass/Vol] 7.9 g/dL Low 11.7-16.0 [facility] Comment on above: Performed By: #### L AB753 ####Civil Engineering Design Draftsperson: PHILLY FRANCO ([id number])[facility] ([facility])[address] [place] [address] Hematocrit (Bld) [Volume fraction] 25.1 % Low 35.0-47.0 [facility] Comment on above: Performed By: #### L AB753 ####Civil Engineering Design Draftsperson: PHILLY FRANCO ([id number])[facility])[address] [place] [address] Hemoglobin (Bld) [Mass/Vol] 8.8 g/dL Low 11.7-16.0 [facility] Comment on above: Performed By: #### L AB753 ####Civil Engineering Design Draftsperson: PHILLY FRANCO ([id number])[facility] ([facility] Hemoglobin (Bld) [Mass/Vol]o n 12-18-2024 Hematocrit (Bld) [Volume fraction] 22.6 % Low 35.0 - 47.0 % [facility] Interpretation and review of laboratory results Abnormal [facility] Hematocrit (Bld) [Volume fraction] 25.1 % Low 35.0 - 47.0 % [facility] Interpretation and review of laboratory results Abnormal [facility] Laboratory - Chemistry and C hemistry - challengeon 12-18-2024 Glucose [Mass/Vol] 93 mg/dL 70 - 100 mg/dL [facility] Glucose [Mass/Vol] 83 mg/dL 70 - 100 mg/dL [facility] Laboratory - Hematology and Cell countson 12-18-2024 Hemoglobin (Bld) [Mass/Vol] 7.9 g/dL Low 11.7 - 16.0 g/dL [facility] Hemoglobin (Bld) [Mass/Vol] 8.8 g/dL Low 11.7 - 16.0 g/dL [facility] MR Brain WO contraston 12-18 [facility] Radiology Study observation (narrative) [facility] MR Brain WO contrastOrdered By: Anrdea Gonzales on 12-18-2024 [facility] Work Phone: MR Cervical spine WO and W c ontrast Indu 12-18-2024 [facility] RADIOLOGY [facility] Radiology Study observation (narrative) [facility] No Panel Informationon 12-18 Interpretation and review of laboratory results Normal [facility] Interpretation and review of laboratory results Normal [facility] Nursing Noteon 12-18-2024 Nursing Note Normal [facility] Progress Noteon 12-18-2024 Progress Note Vancomycin therapy h as been discontinued by Dr. Shamar Bearden on 12/18/24. Thank you for the consult. Pharmacy signing off for vancomycin dosing. Jess Byrd [facility], Date: 12/18/24 Time: 3:54 PM Normal [facility] Progress Note Normal [facility] Progress Note Normal [facility] Progress Note Normal [facility] Progress Note Normal [facility] Progress Note Normal [facility] Progress Note Normal [facility] Progress Note Normal [facility] Progress Note Normal [facility] Bacteria identified Cx Nom ( Bld)on 12-17-2024 Interpretation and review of laboratory results Normal [facility] CBC (HEMOGRAM)on 12-17-2024 Erythrocyte distribution width (RBC) [Ratio] 17.6 % High 11.5-15.0 [facility] Comment on above: Performed By: #### L [id number] ####Civil Engineering Design Draftsperson: PHILLY FRANCO ([id number])[address] Hematocrit (Bld) [Volume fraction] 12.6 % Low 35.0-47.0 [facility] Comment on above: Performed By: #### L AB294 ####Civil Engineering Design Draftsperson: PHILLY FRANCO ([id number])[address] Hemoglobin (Bld) [Mass/Vol] 4.2 g/dL Critically low 11.7-16.0 [facility] Comment on above: Performed By: #### L AB294 ####Civil Engineering Design Draftsperson: PHILLY FRANCO ([id number])[address] MCH (RBC) [Entitic mass] 30.2 pg Normal 26.0-34.0 [facility] Comment on above: Performed By: #### L AB294 ####Civil Engineering Design Draftsperson: PHILLY FRANCO ([id number])[address] MCHC 33.3 % Normal 30.5-36.0 [facility] Comment on above: Performed By: #### L AB294 ####Civil Engineering Design Draftsperson: PHILLY FRANCO ([id number])[facility] ([facility])[address] [place] [address] MCV (RBC) [Entitic vol] 90.6 fL Normal 77.0-99.0 S [facility] Comment on above: Performed By: #### L AB294 ####Civil Engineering Design Draftsperson: PHILLY FRANCO ([id number])[facility])[address] [place] [address] Platelet mean volume (Bld) [Entitic vol] 11.0 fL Normal 9.0-12.7 [facility] Comment on above: Performed By: #### L AB294 ####Civil Engineering Design Draftsperson: PHILLY FRANCO ([id number])[facility])[address] [place] [address] Platelets (Bld) [#/Vol] 350 10*3/uL Normal 140-440 [facility] Comment on above: Performed By: #### L AB294 ####Civil Engineering Design Draftsperson: PHILLY FRANCO ([id number])[facility] ([facility])[address] [place] [address] RBC (Bld) [#/Vol] 1.39 10*6/uL Low 3.80-5.20 [facility] Comment on above: Performed By: #### L AB294 ####Civil Engineering Design Draftsperson: PHILLY FRANCO ([id number])[facility])[address] [place] [address] WBC (Bld) [#/Vol] 12.8 10*3/uL High 3.6-10.7 [facility] Comment on above: Performed By: #### L AB294 ####Civil Engineering Design Draftsperson: PHILLY FRANCO ([id number])[facility])[address] [place] [address] Erythrocyte distribution width (RBC) [Ratio] 17.6 % High 11.5-15.0 [facility] Comment on above: Performed By: #### L AB294 ####Civil Engineering Design Draftsperson: PHILLY FRANCO ([id number])[facility])[address] [place] [address] Hematocrit (Bld) [Volume fraction] 12.6 % Low 35.0-47.0 [facility] Comment on above: Performed By: #### L AB294 ####Civil Engineering Design Draftsperson: PHILLY FRANCO ([id number])[facility])[address] [place] [address] Hemoglobin (Bld) [Mass/Vol] 4.1 g/dL Critically low 11.7-16.0 [facility] Comment on above: Performed By: #### L AB294 ####Civil Engineering Design Draftsperson: PHILLY FRANCO ([id number])[facility])[address] [place] [address] MCH (RBC) [Entitic mass] 29.5 pg Normal 26.0-34.0 [facility] Comment on above: Performed By: #### L AB294 ####Civil Engineering Design Draftsperson: PHILLY FRANCO ([id number])[facility])[address] [place] [address] MCHC 32.5 % Normal 30.5-36.0 [facility] Comment on above: Performed By: #### L AB294 ####Civil Engineering Design Draftsperson: PHILLY FRANCO ([id number])[facility])[address] [place] [address] MCV (RBC) [Entitic vol] 90.6 fL Normal 77.0-99.0 S [facility] Comment on above: Performed By: #### L AB294 ####Civil Engineering Design Draftsperson: PHILLY FRANCO ([id number])[facility])[address] [place] [address] Platelet mean volume (Bld) [Entitic vol] 10.7 fL Normal 9.0-12.7 [facility] Comment on above: Performed By: #### L AB294 ####Civil Engineering Design Draftsperson: PHILLY FRANCO ([id number])[facility])[address] [place] [address] Platelets (Bld) [#/Vol] 322 10*3/uL Normal 140-440 [facility] Comment on above: Performed By: #### L AB294 ####Civil Engineering Design Draftsperson: PHILLY FRANCO ([id number])[facility])[address] [place] [address] RBC (Bld) [#/Vol] 1.39 10*6/uL Low 3.80-5.20 [facility] Comment on above: Performed By: #### L AB294 ####Civil Engineering Design Draftsperson: PHILLY FRANCO ([id number])[facility] ([facility])[address] [place] [address] WBC (Bld) [#/Vol] 11.3 10*3/uL High 3.6-10.7 [facility] Comment on above: Performed By: #### L AB294 ####Civil Engineering Design Draftsperson: PHILLY FRANCO ([id number])[address] CBC panel Auto (Bld)Ordered By: Lindy Johansen on 12-17-2024 Erythrocyte distribution width (RBC) [Ratio] 17.6 % High 11.5 - 15.0 % [facility] Hematocrit (Bld) [Volume fraction] 12.6 % Low 35.0 - 47.0 % [facility] Hemoglobin (Bld) [Mass/Vol] 4.2 g/dL Critically low 11.7 - 16.0 g/dL [facility] Interpretation and review of laboratory results Abnormal [facility] MCH (RBC) [Entitic mass] 30.2 pg 26.0 - 34.0 pg [facility] MCHC (RBC) [Mass/Vol] 33.3 % 30.5 - 36.0 % [facility] MCV (RBC) [Entitic vol] 90.6 fL 77.0 - 99.0 fL [facility] Platelet mean volume (Bld) [Entitic vol] 11 fL 9.0 - 12.7 fL [facility] Platelets (Bld) [#/Vol] 350 10*3/uL 140 - 440 10*3/uL [facility] RBC (Bld) [#/Vol] 1.39 10*6/uL Low 3.80 - 5.2 0 10*6/uL [facility] WBC (Bld) [#/Vol] 12.8 10*3/uL High 3.6 - 10.7 10*3/uL [facility] CBC panel Auto (Bld)on 12-17 Erythrocyte distribution width (RBC) [Ratio] 17.6 % High 11.5 - 15.0 % [facility] Hematocrit (Bld) [Volume fraction] 12.6 % Low 35.0 - 47.0 % [facility] Hemoglobin (Bld) [Mass/Vol] 4.1 g/dL Critically low 11.7 - 16.0 g/dL [facility] Interpretation and review of laboratory results Abnormal [facility] MCH (RBC) [Entitic mass] 29.5 pg 26.0 - 34.0 pg [facility] MCHC (RBC) [Mass/Vol] 32.5 % 30.5 - 36.0 % [facility] MCV (RBC) [Entitic vol] 90.6 fL 77.0 - 99.0 fL [facility] Platelet mean volume (Bld) [Entitic vol] 10.7 fL 9.0 - 12.7 fL [facility] Platelets (Bld) [#/Vol] 322 10*3/uL 140 - 440 10*3/uL [facility] RBC (Bld) [#/Vol] 1.39 10*6/uL Low 3.80 - 5.2 0 10*6/uL [facility] WBC (Bld) [#/Vol] 11.3 10*3/uL High 3.6 - 10.7 10*3/uL [facility] COMPREHENSIVE METABOLIC PANE Fam 12-17-2024 Albumin [Mass/Vol] 1.3 g/dL Low 3.4-4.8 [facility] Comment on above: Performed By: #### L AB17 ####Civil Engineering Design Draftsperson: PHILLY FRANCO ([id number])[address] ALP [Catalytic activity/Vol] 130 U/L Normal 40-150 [facility] Comment on above: Performed By: #### L AB17 ####Civil Engineering Design Draftsperson: PHILLY FRANCO ([id number])[address] [place] [address] [place] ALT [Catalytic activity/Vol] 8 U/L Normal <30 [facility] Comment on above: Performed By: #### L AB17 ####Civil Engineering Design Draftsperson: PHILLY FRANCO ([id number])[facility] ([facility])[address] [place] [address] Anion gap [Moles/Vol] 7 mmol/L Normal 3-13 [facility] Comment on above: Performed By: #### L AB17 ####Civil Engineering Design Draftsperson: PHILLY FRANCO ([id number])[facility] ([facility])[address] [place] [address] AST [Catalytic activity/Vol] 41 U/L High <34 [facility] Comment on above: Performed By: #### L AB17 ####Civil Engineering Design Draftsperson: PHILLY FRANCO ([id number])[facility] ([facility])[address] [place] [address] Bilirubin [Mass/Vol] 0.5 mg/dL Normal <1.2 [facility] Comment on above: Performed By: #### L AB17 ####Civil Engineering Design Draftsperson: PHILLY FRANCO ([id number])[facility] ([facility])[address] [place] [address] Calcium [Mass/Vol] 7.3 mg/dL Low 8.8-10.0 [facility] Comment on above: Performed By: #### L AB17 ####Civil Engineering Design Draftsperson: PHILLY FRANCO ([id number])[facility] ([facility])[address] [place] [address] Chloride [Moles/Vol] 95 mmol/L Low 98-107 [facility] Comment on above: Performed By: #### L AB17 ####Civil Engineering Design Draftsperson: PHILLY FRANCO ([id number])[facility])[address] [place] [address] CO2 [Moles/Vol] 26 mmol/L Normal 23-31 [facility] Comment on above: Performed By: #### L AB17 ####Civil Engineering Design Draftsperson: PHILLY FRANCO ([id number])[facility])[address] [place] [address] Creatinine [Mass/Vol] 2.91 mg/dL High 0.57-1.11 [facility] Comment on above: Performed By: #### L AB17 ####Civil Engineering Design Draftsperson: PHILLY FRANCO ([id number])[facility])[address] [place] [address] [place] GLOMERULAR FILTRATION RATE ML/MIN/1.73 SQ M.PREDICTED 16.4 mL/min/1.73m*2 Low >60.0 [facility] Comment on above: Result Comment: Calc ulation based on the Chronic Kidney Disease Epidemiology Collaboration (CKD-EPI) equation refit without adjustment for race Performed By: #### L AB17 ####Civil Engineering Design Draftsperson: PHILLY FRANCO ([id number])[facility] ([facility])[address] [place] [address] Glucose [Mass/Vol] 110 mg/dL Normal 82-115 [facility] Comment on above: Performed By: #### L AB17 ####Civil Engineering Design Draftsperson: PHILLY FRANCO ([id number])[facility])[address] [place] [address] Potassium [Moles/Vol] 4.0 mmol/L Normal 3.5-5.1 [facility] Comment on above: Result Comment: [facility] potassium values may be up to 0.5 mmol/L lower than serum values. Performed By: #### L AB17 ####Civil Engineering Design Draftsperson: PHILLY FRANCO ([id number])[facility] ([facility])[address] [place] [address] Protein [Mass/Vol] 5.6 g/dL Low 6.4-8.3 [facility] Comment on above: Performed By: #### L AB17 ####Civil Engineering Design Draftsperson: PHILLY FRANCO ([id number])[facility])[address] [place] [address] Sodium [Moles/Vol] 128 mmol/L Low 136-145 [facility] Comment on above: Performed By: #### L AB17 ####Civil Engineering Design Draftsperson: PHILLY FRANCO ([id number])[facility] ([facility])[address] [place] [address] Urea nitrogen [Mass/Vol] 14 mg/dL Normal 9-23 [facility] Comment on above: Performed By: #### L AB17 ####Civil Engineering Design Draftsperson: PHILLY FRANCO ([id number])[facility] ([facility])[address] [place] [address] Coagulation index TEG Qn (Bl d)Ordered By: Juventino Lares on 12-17-2024 APTEM A10 67 mm 50 - 70 mm [facility] APTEM A20 72 mm High 50 - 70 mm [facility] Clot angle TEG (Bld) [Angle] 82 High [facility] Clot formation.extrinsic coagulation system activated Rotational TEG (Bld) [Time] 69 s 43 - 82 s [facility] Clot formation.extrinsic coagulation system activated Rotational TEG (Bld) [Time] 38 s Low 48 - 127 s [facility] Clot formation.extrinsic coagulation system activated Rotational TEG (Bld) [Time] 82 High [facility] Clot formation.extrinsic coagulation system activated [...] Interpretation and review of laboratory results [facility] Maximum clot firmness.extrinsic coagulation system activated.fibrinolysis suppressed Rotational TEG (Bld) [Length] 74 mm High 52 - 70 mm [facility] Comprehensive metabolic 1998 panelon 12-17-2024 Albumin [Mass/Vol] 1.3 g/dL Low 3.4 - 4.8 g/dL [facility] ALP [Catalytic activity/Vol] 130 U/L 40 - 150 U/L [facility] ALT [Catalytic activity/Vol] 8 U/L NINF - 30 U/L [facility] Anion gap [Moles/Vol] 7 mmol/L 3 - 13 mmol/L [facility] AST [Catalytic activity/Vol] 41 U/L High NINF - 34 U/L [facility] Bilirubin [Mass/Vol] 0.5 mg/dL NINF - 1.2 mg/dL [facility] Calcium [Mass/Vol] 7.3 mg/dL Low 8.8 - 10. 0 mg/dL [facility] Chloride [Moles/Vol] 95 mmol/L Low 98 - 10 7 mmol/L [facility] CO2 [Moles/Vol] 26 mmol/L 23 - 31 mmol/L [facility] Creatinine [Mass/Vol] 2.91 mg/dL High 0.57 - 1.11 mg/dL [facility] GFR/1.73 sq M.predicted (S/P/Bld) [Vol rate/Area] 16.4 mL/min Low - PINF [facility] Glucose [Mass/Vol] 110 mg/dL 82 - 115 mg/dL [facility] Interpretation and review of laboratory results Abnormal [facility] Potassium [Moles/Vol] 4 mmol/L 3.5 - 5.1 mmol/L [facility] Protein [Mass/Vol] 5.6 g/dL Low 6.4 - 8.3 g/dL [facility] Sodium [Moles/Vol] 128 mmol/L Low 136 - 145 mmol/L [facility] Urea nitrogen [Mass/Vol] 14 mg/dL 9 - 23 mg/dL [facility] HEMOGLOBIN AND HEMATOCRIT, B LOODon 12-17-2024 Hematocrit (Bld) [Volume fraction] 27.1 % Low 35.0-47.0 [facility] Comment on above: Performed By: #### L [id number] ####Civil Engineering Design Draftsperson: PHILLY FRANCO ([phone])[facility] ([address] Hemoglobin (Bld) [Mass/Vol] 9.6 g/dL Low 11.7-16.0 [facility] Comment on above: Performed By: #### L [id number] ####Civil Engineering Design Draftsperson: PHILLY FRANCO ([phone])[facility] ([facility])[address] [place] [address] Hemoglobin (Bld) [Mass/Vol]O rdered By: Adrienne Bradshaw on 12-17-2024 Hematocrit (Bld) [Volume fraction] 27.1 % Low 35.0 - 47.0 % [facility] Interpretation and review of laboratory results Abnormal [facility] LACTIC ACID WITH REFLEXon Lactate [Moles/Vol] 1.6 mmol/L Normal 0.5-2.2 [facility] Comment on above: Performed By: #### L [id number] ####Civil Engineering Design Draftsperson: PHILLY FRANCO ([id number])[facility] ([facility])[address] [place] [address] Lactate [Moles/Vol] 2.4 mmol/L High 0.5-2.2 [facility] Comment on above: Performed By: #### L [id number] ####Civil Engineering Design Draftsperson: PHILLY FRANCO ([phone])[facility] ([facility])[address] [place] [address] Laboratory - Chemistry and C hemistry - challengeon 12-17-2024 Glucose [Mass/Vol] 96 mg/dL 70 - 100 mg/dL [facility] Lactate [Moles/Vol] 1.6 mmol/L 0.5 - 2. 2 mmol/L [facility] Lactate [Moles/Vol] 2.4 mmol/L High 0.5 - 2. 2 mmol/L [facility] Laboratory - Coagulationon 0 12-17-2024 aPTT Coag (PPP) [Time] 30.5 s 20.0 - 30.5 s [facility] INR Coag (PPP) [Relative time] 1.2 {INR} High 0.9 - 1.1 [facility] PT Coag (Bld) [Time] 13 s High 9.0 - 12.[address] [facility] Laboratory - Drug toxicology on 12-17-2024 levETIRAcetam [Mass/Vol] 11.3 ug/mL [facility] Laboratory - Hematology and Cell countsOrdered By: Adrienne Bradshaw on 12-17-2024 Hemoglobin (Bld) [Mass/Vol] 9.6 g/dL Low 11.7 - 16.0 g/dL [facility] Laboratory - Microbiology an d Antimicrobial susceptibilityon 12-17-2024 Bacteria identified Cx Nom (Bld) No growth at 5 days [facility] No Panel Informationon 12-17 [facility] Interpretation and review of laboratory results Normal [facility] Blood Expiration Date S [facility] Blood Expiration Date S [facility] Crossmatch interpretation COMP [facility] Dispense Status Transfused [facility] Product Blood Type 5100 [facility] PRODUCT CODE [id number] [facility] PRODUCT CODE [id number] [facility] PRODUCT CODE [id number] [facility] ABO O [facility] Number [id number] [facility] Number [id number] [facility] Number [id number] [facility] RH Positive [facility] Unit Volume 300 mL [facility] Interpretation and review of laboratory results Abnormal [facility] Interpretation and review of laboratory results Normal [facility] Interpretation and review of laboratory results Abnormal [facility] Nursing Noteon 12-17-2024 Nursing Note Normal [facility] Nursing Note Non Emergent rapid paged for stat labs per general surgery. Pt hard stick. Pt known to rapid. Labs sent. Hemoglobin 4.2. Talked with Dr. Leonardo about a possible line for patient due to the issues with getting access/blood. Normal [facility] Nursing Note Normal [facility] PROTIME AND APTTon aPTT Coag (Bld) [Time] 30.5 s Normal 20.0-30.5 [facility] Comment on above: Performed By: #### L [id number] ####Civil Engineering Design Draftsperson: PHILLY FRANCO ([id number])[facility] ([address] INR Coag (PPP) [Relative time] 1.2 {INR} High 0.9-1.1 [facility] Comment on above: Result Comment: Bruce mmended [...] prevent Myocardial Infarction Performed By: #### L [id number] ####Civil Engineering Design Draftsperson: PHILLY FRANCO ([id number])[facility] ([facility])[address] [place] [address] PT Coag (PPP) [Time] 13.0 s High 9.0-12.0 [facility] Comment on above: Performed By: #### L [id number] ####Civil Engineering Design Draftsperson: PHILLY FRANCO ([id number])[facility] ([facility])[address] [place] [address] Progress Noteon 12-17-2024 Progress Note Normal [facility] Progress Note Normal [facility] Progress Note Normal [facility] Progress Note Normal [facility] ALFREDO TRAUMA PANELon 025 APTEM A10 67 mm Normal 50-70 [facility] Comment on above: Performed By: #### L [id number] ####Civil Engineering Design Draftsperson: PHILLY FRANCO ([id number])[facility]OD [facility] ([facility])[address] [place] [address] APTEM A20 72 mm High 50-70 [facility] Comment on above: Performed By: #### L [id number] ####Civil Engineering Design Draftsperson: PHILLY FRANCO ([id number])[facility] ([facility])[address] [place] [address] [place] APTEM ALPHA 82 DEGREES High 65-80 [facility] Comment on above: Performed By: #### L [id number] ####Civil Engineering Design Draftsperson: PHILLY FRANCO ([id number])[facility] ([facility])[address] [place] [address] APTEM CLOT FORMATION TIME 37 s Low 48-127 [facility] Comment on above: Performed By: #### L [id number] ####Civil Engineering Design Draftsperson: PHILLY FRANCO ([id number])[facility] ([facility])[address] [place] [address] [place] APTEM CLOTTING TIME 78 s Normal 43-82 [facility] Comment on above: Performed By: #### L [id number] ####Civil Engineering Design Draftsperson: PHILLY FRANCO ([id number])[facility] ([facility])[address] [place] [address] [place] APTEM MAXIMUM CLOT FIRMNESS 74 mm High 52-70 [facility] Comment on above: Performed By: #### L [id number] ####Civil Engineering Design Draftsperson: PHILLY FRANCO ([id number])[facility] ([facility])[address] [place] [address] [place] EXTEM A10 67 mm Normal 50-70 [facility] Comment on above: Performed By: #### L [id number] ####Civil Engineering Design Draftsperson: PHILLY FRANCO ([id number])[facility] ([facility])[address] [place] [address] [place] EXTEM A20 72 mm High 50-70 [facility] Comment on above: Performed By: #### L [id number] ####Civil Engineering Design Draftsperson: PHILLY FRANCO ([id number])[facility] ([facility])[address] [place] [address] [place] EXTEM ALPHA 82 DEGREES High 65-80 [facility] Comment on above: Performed By: #### L [id number] ####Civil Engineering Design Draftsperson: PHILLY FRANCO ([id number])[facility] ([facility])[address] [place] [address] [place] EXTEM CLOT FORMATION TIME 38 s Low 48-127 [facility] Comment on above: Performed By: #### L [id number] ####Civil Engineering Design Draftsperson: PHILLY FRANCO ([id number])[facility] ([facility])[address] [place] [address] [place] EXTEM CLOTTING TIME 69 s Normal 43-82 [facility] Comment on above: Performed By: #### L [id number] ####Civil Engineering Design Draftsperson: PHILLY FRANCO ([id number])[facility] ([facility])[address] [place] [address] EXTEM MAXIMUM CLOT FIRMNESS 73 mm High 52-70 [facility] Comment on above: Performed By: #### L [id number] ####Civil Engineering Design Draftsperson: PHILLY FRANCO ([id number])[facility] ([facility])[address] [place] [address] FIBTEM A10 31 mm Normal [facility] Comment on above: Performed By: #### L [id number] ####Civil Engineering Design Draftsperson: PHILLY FRANCO ([phone])[facility] ([facility])[address] [place] [address] FIBTEM A20 30 mm Normal [facility] Comment on above: Performed By: #### L [id number] ####Civil Engineering Design Draftsperson: PHILLY FRANCO ([phone])[facility] ([facility])[address] [place] [address] FIBTEM MAXIMUM CLOT FIRMNESS 31 mm High 7-24 [facility] Comment on above: Performed By: #### L [id number] ####Civil Engineering Design Draftsperson: PHILLY FRANCO ([id number])[facility] ([facility])[address] [place] [address] CBC (HEMOGRAM)on 12-16-2024 Erythrocyte distribution width (RBC) [Ratio] 17.2 % High 11.5-15.0 [facility] Comment on above: Performed By: #### L [id number] ####Civil Engineering Design Draftsperson: PHILLY FRANCO ([id number])[facility] ([facility])[address] [place] [address] Hematocrit (Bld) [Volume fraction] 24.9 % Low 35.0-47.0 [facility] Comment on above: Performed By: #### L [id number] ####Civil Engineering Design Draftsperson: PHILLY FRANCO ([id number])[facility] ([facility])[address] [place] [address] Hemoglobin (Bld) [Mass/Vol] 8.2 g/dL Low 11.7-16.0 [facility] Comment on above: Performed By: #### L [id number] ####Civil Engineering Design Draftsperson: PHILLY FRANCO ([id number])[facility] ([facility])[address] [place] [address] MCH (RBC) [Entitic mass] 29.7 pg Normal 26.0-34.0 [facility] Comment on above: Performed By: #### L [id number] ####Civil Engineering Design Draftsperson: PHILLY FRANCO ([id number])[facility] ([facility])[address] [place] [address] MCHC 32.9 % Normal 30.5-36.0 [facility] Comment on above: Performed By: #### L [id number] ####Civil Engineering Design Draftsperson: PHILLY FRANCO ([id number])[facility] ([facility])[address] [place] [address] MCV (RBC) [Entitic vol] 90.2 fL Normal 77.0-99.0 S [facility] Comment on above: Performed By: #### L [id number] ####Civil Engineering Design Draftsperson: PHILLY FRANCO ([id number])[facility])[address] [place] [address] Platelet mean volume (Bld) [Entitic vol] 10.6 fL Normal 9.0-12.7 [facility] Comment on above: Performed By: #### L [id number] ####Civil Engineering Design Draftsperson: PHILLY FRANCO ([id number])[facility] ([facility])[address] [place] [address] Platelets (Bld) [#/Vol] 394 10*3/uL Normal 140-440 [facility] Comment on above: Performed By: #### L [id number] ####Civil Engineering Design Draftsperson: PHILLY FRANCO ([id number])[facility] ([facility])[address] [place] [address] RBC (Bld) [#/Vol] 2.76 10*6/uL Low 3.80-5.20 [facility] Comment on above: Performed By: #### L [id number] ####Civil Engineering Design Draftsperson: PHILLY FRANCO ([id number])[facility] ([facility])[address] [place] [address] WBC (Bld) [#/Vol] 10.3 10*3/uL Normal 3.6-10.7 [facility] Comment on above: Performed By: #### L [id number] ####Civil Engineering Design Draftsperson: PHILLY FRANCO ([id number])[facility] ([facility])[address] [place] [address] CBC panel Auto (Bld)on 12-16 Erythrocyte distribution width (RBC) [Ratio] 17.2 % High 11.5 - 15.0 % [facility] Hematocrit (Bld) [Volume fraction] 24.9 % Low 35.0 - 47.0 % [facility] Hemoglobin (Bld) [Mass/Vol] 8.2 g/dL Low 11.7 - 16.0 g/dL [facility] Interpretation and review of laboratory results Abnormal [facility] MCH (RBC) [Entitic mass] 29.7 pg 26.0 - 34.0 pg [facility] MCHC (RBC) [Mass/Vol] 32.9 % 30.5 - 36.0 % [facility] MCV (RBC) [Entitic vol] 90.2 fL 77.0 - 99.0 fL [facility] Platelet mean volume (Bld) [Entitic vol] 10.6 fL 9.0 - 12.7 fL [facility] Platelets (Bld) [#/Vol] 394 10*3/uL 140 - 440 10*3/uL [facility] RBC (Bld) [#/Vol] 2.76 10*6/uL Low 3.80 - 5.2 0 10*6/uL [facility] WBC (Bld) [#/Vol] 10.3 10*3/uL 3.6 - 10.7 10*3/uL [facility] COMPREHENSIVE METABOLIC PANE Fam 12-16-2024 Albumin [Mass/Vol] 1.3 g/dL Low 3.4-4.8 [facility] Comment on above: Performed By: #### L [id number] ####Civil Engineering Design Draftsperson: PHILLY FRANCO ([id number])[facility] ([facility])[address] [place] [address] ALP [Catalytic activity/Vol] 139 U/L Normal 40-150 [facility] Comment on above: Performed By: #### L [id number] ####Civil Engineering Design Draftsperson: PHILLY FRANCO ([id number])[facility] ([facility])[address] [place] [address] [place] ALT [Catalytic activity/Vol] 12 U/L Normal <30 [facility] Comment on above: Performed By: #### L [id number] ####Civil Engineering Design Draftsperson: PHILLY FRANCO ([id number])[facility] ([facility])[address] [place] [address] Anion gap [Moles/Vol] 5 mmol/L Normal 3-13 [facility] Comment on above: Performed By: #### L [id number] ####Civil Engineering Design Draftsperson: PHILLY FRANCO ([id number])[facility] ([facility])[address] [place] [address] AST [Catalytic activity/Vol] 45 U/L High <34 [facility] Comment on above: Performed By: #### L [id number] ####Civil Engineering Design Draftsperson: PHILLY FRANCO ([phone])[facility] ([facility])[address] [place] [address] Bilirubin [Mass/Vol] 0.5 mg/dL Normal <1.2 [facility] Comment on above: Performed By: #### L [id number] ####Civil Engineering Design Draftsperson: PHILLY FRANCO ([id number])[facility] ([facility])[address] [place] [address] Calcium [Mass/Vol] 7.4 mg/dL Low 8.8-10.0 [facility] Comment on above: Performed By: #### L [id number] ####Civil Engineering Design Draftsperson: PHILLY FRANCO ([id number])[facility] ([facility])[address] [place] [address] Chloride [Moles/Vol] 98 mmol/L Normal 98-107 [facility] Comment on above: Performed By: #### L [id number] ####Civil Engineering Design Draftsperson: PHILLY FRANCO ([id number])[facility])[address] [place] [address] CO2 [Moles/Vol] 25 mmol/L Normal 23-31 [facility] Comment on above: Performed By: #### L [id number] ####Civil Engineering Design Draftsperson: PHILLY FRANCO ([id number])[facility])[address] [place] [address] Creatinine [Mass/Vol] 2.66 mg/dL High 0.57-1.11 [facility] Comment on above: Performed By: #### L [id number] ####Civil Engineering Design Draftsperson: PHILLY FRANCO ([id number])[facility])[address] [place] [address] GLOMERULAR FILTRATION RATE ML/MIN/1.73 SQ M.PREDICTED 18.3 mL/min/1.73m*2 Low >60.0 [facility] Comment on above: Result Comment: Calc ulation based on the Chronic Kidney Disease Epidemiology Collaboration (CKD-EPI) equation refit without adjustment for race Performed By: #### L [id number] ####Civil Engineering Design Draftsperson: PHILLY FRANCO ([id number])[facility])[address] [place] [address] Glucose [Mass/Vol] 146 mg/dL High 82-115 [facility] Comment on above: Performed By: #### L [id number] ####Civil Engineering Design Draftsperson: PHILLY FRANCO ([id number])[facility])[address] [place] [address] Potassium [Moles/Vol] 4.3 mmol/L Normal 3.5-5.1 [facility] Comment on above: Result Comment: [facility] potassium values may be up to 0.5 mmol/L lower than serum values. Performed By: #### L [id number] ####Civil Engineering Design Draftsperson: PHILLY FRANCO ([id number])[facility])[address] [place] [address] Protein [Mass/Vol] 5.9 g/dL Low 6.4-8.3 [facility] Comment on above: Performed By: #### L AB17 ####Civil Engineering Design Draftsperson: PHILLY FRANCO ([id number])[facility] ([facility])[address] [place] [address] Sodium [Moles/Vol] 128 mmol/L Low 136-145 [facility] Comment on above: Performed By: #### L AB17 ####Civil Engineering Design Draftsperson: PHILLY FRANCO ([phone])[facility] ([facility])[address] [place] [address] Urea nitrogen [Mass/Vol] 10 mg/dL Normal 9-23 [facility] Comment on above: Performed By: #### L [id number] ####Civil Engineering Design Draftsperson: PHILLY FRANCO ([phone])[facility])[address] [place] [address] Albumin [Mass/Vol] 1.4 g/dL Low 3.4-4.8 [facility] Comment on above: Performed By: #### L AB17 ####Civil Engineering Design Draftsperson: PHILLY FRANCO ([id number])[facility] ([facility])[address] [place] [address] ALP [Catalytic activity/Vol] 147 U/L Normal 40-150 [facility] Comment on above: Performed By: #### L [id number] ####Civil Engineering Design Draftsperson: PHILLY FRANCO ([id number])[facility] ([facility])[address] [place] [address] ALT [Catalytic activity/Vol] 13 U/L Normal <30 [facility] Comment on above: Performed By: #### L [id number] ####Civil Engineering Design Draftsperson: PHILLY FRANCO ([id number])[facility] ([facility])[address] [place] [address] Anion gap [Moles/Vol] 8 mmol/L Normal 3-13 [facility] Comment on above: Performed By: #### L AB17 ####Civil Engineering Design Draftsperson: PHILLY FRANCO ([phone])[facility] ([facility])[address] [place] [address] AST [Catalytic activity/Vol] 52 U/L High <34 [facility] Comment on above: Performed By: #### L [id number] ####Civil Engineering Design Draftsperson: PHILLY FRANCO ([phone])[facility])[address] [place] [address] Bilirubin [Mass/Vol] 0.4 mg/dL Normal <1.2 [facility] Comment on above: Performed By: #### L [id number] ####Civil Engineering Design Draftsperson: PHILLY FRANCO ([phone])[facility])[address] [place] [address] Calcium [Mass/Vol] 7.5 mg/dL Low 8.8-10.0 [facility] Comment on above: Performed By: #### L [id number] ####Civil Engineering Design Draftsperson: PHILLY FRANCO ([id number])[facility])[address] [place] [address] Chloride [Moles/Vol] 99 mmol/L Normal 98-107 [facility] Comment on above: Performed By: #### L AB17 ####Civil Engineering Design Draftsperson: PHILLY FRANCO ([id number])[facility] ([facility])[address] [place] [address] CO2 [Moles/Vol] 25 mmol/L Normal 23-31 [facility] Comment on above: Performed By: #### L AB17 ####Civil Engineering Design Draftsperson: PHILLY FRANCO ([phone])[facility])[address] [place] [address] Creatinine [Mass/Vol] 1.99 mg/dL High 0.57-1.11 [facility] Comment on above: Performed By: #### L AB17 ####Civil Engineering Design Draftsperson: PHILLY FRANCO ([phone])[facility])[address] [place] [address] GLOMERULAR FILTRATION RATE ML/MIN/1.73 SQ M.PREDICTED 25.9 mL/min/1.73m*2 Low >60.0 [facility] Comment on above: Result Comment: Calc ulation based on the Chronic Kidney Disease Epidemiology Collaboration (CKD-EPI) equation refit without adjustment for race Performed By: #### L AB17 ####Civil Engineering Design Draftsperson: PHILLY FRANCO ([id number])[facility] ([facility])[address] [place] [address] Glucose [Mass/Vol] 98 mg/dL Normal 82-115 [facility] Comment on above: Performed By: #### L AB17 ####Civil Engineering Design Draftsperson: PHILLY FRANCO ([id number])[facility])[address] [place] [address] Potassium [Moles/Vol] 4.0 mmol/L Normal 3.5-5.1 [facility] Comment on above: Result Comment: [facility] potassium values may be up to 0.5 mmol/L lower than serum values. Performed By: #### L AB17 ####Civil Engineering Design Draftsperson: PHILLY FRANCO ([id number])[facility])[address] [place] [address] Protein [Mass/Vol] 6.4 g/dL Normal 6.4-8.3 [facility] Comment on above: Performed By: #### L AB17 ####Civil Engineering Design Draftsperson: PHILLY FRANCO ([id number])[facility])[address] [place] [address] Sodium [Moles/Vol] 132 mmol/L Low 136-145 [facility] Comment on above: Performed By: #### L AB17 ####Civil Engineering Design Draftsperson: PHILLY FRANCO ([phone])[facility])[address] [place] [address] Urea nitrogen [Mass/Vol] 7 mg/dL Low 9-23 [facility] Comment on above: Performed By: #### L [id number] ####Civil Engineering Design Draftsperson: PHILLY FRANCO ([id number])[facility])[address] [place] [address] CT ABDOMEN PELVIS WO IV CONT RASTon 12-16-2024 CT ABDOMEN PELVIS WO IV CONTRAST Normal [facility] CT Abdomen and Pelvis WO con traston 12-16-2024 [facility] Radiology Study observation (narrative) [facility] CT Abdomen and Pelvis WO con trastOrdered By: Balta Ruvalcaba on 12-16-2024 [facility] [employer] Work Phone: Comprehensive metabolic 1998 panelon 12-16-2024 Albumin [Mass/Vol] 1.3 g/dL Low 3.4 - 4.8 g/dL [facility] ALP [Catalytic activity/Vol] 139 U/L 40 - 150 U/L [facility] ALT [Catalytic activity/Vol] 12 U/L NINF - 30 U/L [facility] Anion gap [Moles/Vol] 5 mmol/L 3 - 13 mmol/L [facility] AST [Catalytic activity/Vol] 45 U/L High NINF - 34 U/L [facility] Bilirubin [Mass/Vol] 0.5 mg/dL NINF - 1.2 mg/dL [facility] Calcium [Mass/Vol] 7.4 mg/dL Low 8.8 - 10. 0 mg/dL [facility] Chloride [Moles/Vol] 98 mmol/L 98 - 10 7 mmol/L [facility] CO2 [Moles/Vol] 25 mmol/L 23 - 31 mmol/L [facility] Creatinine [Mass/Vol] 2.66 mg/dL High 0.57 - 1.11 mg/dL [facility] GFR/1.73 sq M.predicted (S/P/Bld) [Vol rate/Area] 18.3 mL/min Low - PINF [facility] Glucose [Mass/Vol] 146 mg/dL High 82 - 115 mg/dL [facility] Interpretation and review of laboratory results Abnormal [facility] Potassium [Moles/Vol] 4.3 mmol/L 3.5 - 5.1 mmol/L [facility] Protein [Mass/Vol] 5.9 g/dL Low 6.4 - 8.3 g/dL [facility] Sodium [Moles/Vol] 128 mmol/L Low 136 - 145 mmol/L [facility] Urea nitrogen [Mass/Vol] 10 mg/dL 9 - 23 mg/dL [facility] Albumin [Mass/Vol] 1.4 g/dL Low 3.4 - 4.8 g/dL [facility] ALP [Catalytic activity/Vol] 147 U/L 40 - 150 U/L [facility] ALT [Catalytic activity/Vol] 13 U/L NINF - 30 U/L [facility] Anion gap [Moles/Vol] 8 mmol/L 3 - 13 mmol/L [facility] AST [Catalytic activity/Vol] 52 U/L High NINF - 34 U/L [facility] Bilirubin [Mass/Vol] 0.4 mg/dL NINF - 1.2 mg/dL [facility] Calcium [Mass/Vol] 7.5 mg/dL Low 8.8 - 10. 0 mg/dL [facility] Chloride [Moles/Vol] 99 mmol/L 98 - 10 7 mmol/L [facility] CO2 [Moles/Vol] 25 mmol/L 23 - 31 mmol/L [facility] Creatinine [Mass/Vol] 1.99 mg/dL High 0.57 - 1.11 mg/dL [facility] GFR/1.73 sq M.predicted (S/P/Bld) [Vol rate/Area] 25.9 mL/min Low - PINF [facility] Glucose [Mass/Vol] 98 mg/dL 82 - 115 mg/dL [facility] Interpretation and review of laboratory results Abnormal [facility] Potassium [Moles/Vol] 4 mmol/L 3.5 - 5.1 mmol/L [facility] Protein [Mass/Vol] 6.4 g/dL 6.4 - 8.3 g/dL [facility] Sodium [Moles/Vol] 132 mmol/L Low 136 - 145 mmol/L [facility] Urea nitrogen [Mass/Vol] 7 mg/dL Low 9 - 23 mg/dL [facility] Consulton 12-16-2024 Consult Normal [facility] LACTIC ACID WITH REFLEXon Lactate [Moles/Vol] 2.6 mmol/L High 0.5-2.2 [facility] Comment on above: Performed By: #### L [id number] ####Civil Engineering Design Draftsperson: PHILLY FRANCO ([id number])[facility] ([address] Laboratory - Chemistry and C hemistry - challengeon 12-16-2024 Lactate [Moles/Vol] 2.6 mmol/L High 0.5 - 2. 2 mmol/L [facility] Laboratory - Drug toxicology on 12-16-2024 Vancomycin [Mass/Vol] 13.7 ug/mL [facility] No Panel Informationon 12-16 Interpretation and review of laboratory results Abnormal [facility] Nursing Noteon 12-16-2024 Nursing Note Normal [facility] Nursing Note Crushed patients med s and put in pudding. Patient only took some of meds, and refused the rest. Normal [facility] Progress Noteon 12-16-2024 Progress Note Normal [facility] Progress Note Normal [facility] Progress Note Normal [facility] VANCOMYCIN, RANDOMon 025 VANCOMYCIN 13.7 ug/mL Normal [facility] Comment on above: Result Comment: ORDE R COMMENTS:Toxicity is seen at concentrations >80-100 ug/mLTherapeutic (Peak) range: 20-40Therapeutic (Trough) range: 5-10 Performed By: #### L [id number] ####Civil Engineering Design Draftsperson: PHILLY FRANCO ([id number])[address] [id number] 12-15-2024 [id number] Normal [facility] [id number] 30 Day Readmission. Hospital Readmission Questionnaire not required due to patient readmitted from skilled or rehabilitation facility. Normal [facility] CBC (HEMOGRAM)on 12-15-2024 Erythrocyte distribution width (RBC) [Ratio] 17.2 % High 11.5-15.0 [facility] Comment on above: Performed By: #### L [id number] ####Civil Engineering Design Draftsperson: PHILLY FRANCO ([id number])[address] Hematocrit (Bld) [Volume fraction] 25.6 % Low 35.0-47.0 [facility] Comment on above: Performed By: #### L [id number] ####Civil Engineering Design Draftsperson: PHILLY FRANCO ([id number])[address] Hemoglobin (Bld) [Mass/Vol] 8.3 g/dL Low 11.7-16.0 [facility] Comment on above: Performed By: #### L [id number] ####Civil Engineering Design Draftsperson: PHILLY FRANCO ([id number])[facility])[address] [place] [address] MCH (RBC) [Entitic mass] 30.0 pg Normal 26.0-34.0 [facility] Comment on above: Performed By: #### L [id number] ####Civil Engineering Design Draftsperson: PHILLY FRANCO ([id number])[facility])[address] [place] [address] MCHC 32.4 % Normal 30.5-36.0 [facility] Comment on above: Performed By: #### L [id number] ####Civil Engineering Design Draftsperson: PHILLY FRANCO ([id number])[facility])[address] [place] [address] MCV (RBC) [Entitic vol] 92.4 fL Normal 77.0-99.0 S [facility] Comment on above: Performed By: #### L [id number] ####Civil Engineering Design Draftsperson: PHILLY FRANCO ([id number])[facility])[address] [place] [address] Platelet mean volume (Bld) [Entitic vol] 10.5 fL Normal 9.0-12.7 [facility] Comment on above: Performed By: #### L [id number] ####Civil Engineering Design Draftsperson: PHILLY FRANCO ([id number])[facility])[address] [place] [address] Platelets (Bld) [#/Vol] 363 10*3/uL Normal 140-440 [facility] Comment on above: Performed By: #### L [id number] ####Civil Engineering Design Draftsperson: PHILLY FRANCO ([id number])[facility])[address] [place] [address] RBC (Bld) [#/Vol] 2.77 10*6/uL Low 3.80-5.20 [facility] Comment on above: Performed By: #### L [id number] ####Civil Engineering Design Draftsperson: PHILLY FRANCO ([id number])[facility] ([facility])[address] [place] [address] WBC (Bld) [#/Vol] 12.0 10*3/uL High 3.6-10.7 [facility] Comment on above: Performed By: #### L [id number] ####Civil Engineering Design Draftsperson: PHILLY FRANCO ([id number])[facility] ([facility])[address] [place] [address] CBC panel Auto (Bld)on 12-15 Erythrocyte distribution width (RBC) [Ratio] 17.2 % High 11.5 - 15.0 % [facility] Hematocrit (Bld) [Volume fraction] 25.6 % Low 35.0 - 47.0 % [facility] Hemoglobin (Bld) [Mass/Vol] 8.3 g/dL Low 11.7 - 16.0 g/dL [facility] Interpretation and review of laboratory results Abnormal [facility] MCH (RBC) [Entitic mass] 30 pg 26.0 - 34.0 pg [facility] MCHC (RBC) [Mass/Vol] 32.4 % 30.5 - 36.0 % [facility] MCV (RBC) [Entitic vol] 92.4 fL 77.0 - 99.0 fL [facility] Platelet mean volume (Bld) [Entitic vol] 10.5 fL 9.0 - 12.7 fL [facility] Platelets (Bld) [#/Vol] 363 10*3/uL 140 - 440 10*3/uL [facility] RBC (Bld) [#/Vol] 2.77 10*6/uL Low 3.80 - 5.2 0 10*6/uL [facility] WBC (Bld) [#/Vol] 12 10*3/uL High 3.6 - 10.7 10*3/uL [facility] COMPREHENSIVE METABOLIC PANE Fam 12-15-2024 Albumin [Mass/Vol] 1.5 g/dL Low 3.4-4.8 [facility] Comment on above: Performed By: #### L [id number] ####Civil Engineering Design Draftsperson: PHILLY FRANCO ([id number])[facility] ([facility])[address] [place] [address] ALP [Catalytic activity/Vol] 146 U/L Normal 40-150 [facility] Comment on above: Performed By: #### L [id number] ####Civil Engineering Design Draftsperson: PHILLY FRANCO ([id number])[facility] ([facility])[address] [place] [address] ALT [Catalytic activity/Vol] 14 U/L Normal <30 [facility] Comment on above: Performed By: #### L AB17 ####Civil Engineering Design Draftsperson: PHILLY FRANCO ([id number])[facility] ([facility])[address] [place] [address] Anion gap [Moles/Vol] 9 mmol/L Normal 3-13 [facility] Comment on above: Performed By: #### L [id number] ####Civil Engineering Design Draftsperson: PHILLY FRANCO ([id number])[facility] ([facility])[address] [place] [address] AST [Catalytic activity/Vol] 53 U/L High <34 [facility] Comment on above: Performed By: #### L [id number] ####Civil Engineering Design Draftsperson: PHILLY FRANCO ([id number])[facility] ([facility])[address] [place] [address] Bilirubin [Mass/Vol] 0.4 mg/dL Normal <1.2 [facility] Comment on above: Performed By: #### L [id number] ####Civil Engineering Design Draftsperson: PHILLY FRANCO ([id number])[facility] ([facility])[address] [place] [address] Calcium [Mass/Vol] 7.8 mg/dL Low 8.8-10.0 [facility] Comment on above: Performed By: #### L [id number] ####Civil Engineering Design Draftsperson: PHILLY FRANCO ([id number])[facility] ([facility])[address] [place] [address] [place] Chloride [Moles/Vol] 101 mmol/L Normal 98-107 [facility] Comment on above: Performed By: #### L [id number] ####Civil Engineering Design Draftsperson: PHILLY FRANCO ([id number])[facility] ([facility])[address] [place] [address] CO2 [Moles/Vol] 24 mmol/L Normal 23-31 [facility] Comment on above: Performed By: #### L [id number] ####Civil Engineering Design Draftsperson: PHILLY FRANCO ([id number])[facility])[address] [place] [address] Creatinine [Mass/Vol] 2.80 mg/dL High 0.57-1.11 [facility] Comment on above: Performed By: #### L [id number] ####Civil Engineering Design Draftsperson: PHILLY FRANCO ([id number])[facility] ([facility])[address] [place] [address] GLOMERULAR FILTRATION RATE ML/MIN/1.73 SQ M.PREDICTED 17.2 mL/min/1.73m*2 Low >60.0 [facility] Comment on above: Result Comment: Calc ulation based on the Chronic Kidney Disease Epidemiology Collaboration (CKD-EPI) equation refit without adjustment for race Performed By: #### L [id number] ####Civil Engineering Design Draftsperson: PHILLY FRANCO ([id number])[facility] ([facility])[address] [place] [address] [place] Glucose [Mass/Vol] 65 mg/dL Low 82-115 [facility] Comment on above: Performed By: #### L [id number] ####Civil Engineering Design Draftsperson: PHILLY FRANCO ([id number])[facility])[address] [place] [address] [place] Potassium [Moles/Vol] 4.4 mmol/L Normal 3.5-5.1 [facility] Comment on above: Result Comment: [facility] potassium values may be up to 0.5 mmol/L lower than serum values. Performed By: #### L [id number] ####Civil Engineering Design Draftsperson: PHILLY FRANCO ([id number])[facility])[address] [place] [address] Protein [Mass/Vol] 6.5 g/dL Normal 6.4-8.3 [facility] Comment on above: Performed By: #### L AB17 ####Civil Engineering Design Draftsperson: PHILLY [id number])[facility] ([facility])[address] [place] [address] Sodium [Moles/Vol] 134 mmol/L Low 136-145 [facility] Comment on above: Performed By: #### L AB17 ####Civil Engineering Design Draftsperson: PHILLY FRANCO ([id number])[facility] ([facility])[address] [place] [address] Urea nitrogen [Mass/Vol] 12 mg/dL Normal 9-23 [facility] Comment on above: Performed By: #### L AB17 ####Civil Engineering Design Draftsperson: PHILLY FRANCO ([id number])[facility] ([facility])[address] [place] [address] Comprehensive metabolic 1998 panelOrdered By: Feliberto Avina on 12-15-2024 Albumin [Mass/Vol] 1.5 g/dL Low 3.4 - 4.8 g/dL [facility] ALP [Catalytic activity/Vol] 146 U/L 40 - 150 U/L [facility] ALT [Catalytic activity/Vol] 14 U/L NINF - 30 U/L [facility] Anion gap [Moles/Vol] 9 mmol/L 3 - 13 mmol/L [facility] AST [Catalytic activity/Vol] 53 U/L High NINF - 34 U/L [facility] Bilirubin [Mass/Vol] 0.4 mg/dL NINF - 1.2 mg/dL [facility] Calcium [Mass/Vol] 7.8 mg/dL Low 8.8 - 10. 0 mg/dL [facility] Chloride [Moles/Vol] 101 mmol/L 98 - 10 7 mmol/L [facility] CO2 [Moles/Vol] 24 mmol/L 23 - 31 mmol/L [facility] Creatinine [Mass/Vol] 2.8 mg/dL High 0.57 - 1.11 mg/dL [facility] GFR/1.73 sq M.predicted (S/P/Bld) [Vol rate/Area] 17.2 mL/min Low - PINF [facility] Glucose [Mass/Vol] 65 mg/dL Low 82 - 115 mg/dL [facility] Interpretation and review of laboratory results Abnormal [facility] Potassium [Moles/Vol] 4.4 mmol/L 3.5 - 5.1 mmol/L [facility] Protein [Mass/Vol] 6.5 g/dL 6.4 - 8.3 g/dL [facility] Sodium [Moles/Vol] 134 mmol/L Low 136 - 145 mmol/L [facility] Urea nitrogen [Mass/Vol] 12 mg/dL 9 - 23 mg/dL [facility] LEVETIRACETAM LEVEL (BKR QUE ST)on 12-15-2024 QUEST LEVETIRACETAM, IMMUNOASSAY 11.3 mcg/mL Normal 6.0-46.0 [facility] Comment on above: Result Comment: Briv aracetam (Briviact(R), Rikelta(R)) exhibitssignificant cross-reactivity in the Levetiracetam(Keppra(R), Spritam(R)) immunoassay. If Brivaracetamhas been prescribed, order test code [id number] by LCMSMS.Test Performed by [facility],[address] [place] [id number] Orourke M.D., Ph.D., Director of [phone], CLIA [id number] Performed By: #### L [id number] ####[employer] ([address] [facility] Laboratory - Chemistry and C hemistry - challengeon 12-15-2024 Glucose [Mass/Vol] 104 mg/dL High 70 - 100 mg/dL [facility] Glucose [Mass/Vol] 69 mg/dL Low 70 - 100 mg/dL [facility] Laboratory - Drug toxicology on 12-15-2024 Vancomycin [Mass/Vol] 19 ug/mL [facility] No Panel Informationon 12-15 Interpretation and review of laboratory results Abnormal [facility] Interpretation and review of laboratory results Abnormal [facility] Nursing Noteon 12-15-2024 Nursing Note Normal [facility] Progress Noteon 12-15-2024 Progress Note Normal [facility] Progress Note Normal [facility] Progress Note Normal [facility] Progress Note Normal [facility] Progress Note Normal [facility] VANCOMYCIN, RANDOMon 025 VANCOMYCIN 19.0 ug/mL Normal [facility] Comment on above: Result Comment: GUERO Amanda COMMENTS:Obtain a vancomycin level 4 hours after the END of hemodialysis.Toxicity is seen at concentrations >80-100 ug/mLTherapeutic (Peak) range: 20-40Therapeutic (Trough) range: 5-10 Performed By: #### L AB40 ####Civil Engineering Design Draftsperson: PHILLY FRANCO ([id number])[facility] ([facility])[address] [place] [address] [id number] 12-14-2024 [id number] Normal [facility] AMMONIAon 12-14-2024 Ammonia (P) [Moles/Vol] 26 umol/L Normal 18-72 [facility] Comment on above: Performed By: #### L AB47 ####Civil Engineering Design Draftsperson: PHILLY FRANCO ([id number])[facility] ([facility])[address] [place] [address] BLOOD TYPE AND SCREEN GELon 12-14-2024 ABO GROUPING O Normal [facility] Comment on above: Performed By: #### L [id number] ####Civil Engineering Design Draftsperson: PHILLY FRANCO ([id number])[facility] BLOOD [facility] ([facility])[address] [place] [address] RH TYPE IN BLOOD Positive Normal [facility] Comment on above: Performed By: #### L [id number] ####Civil Engineering Design Draftsperson: PHILLY FRANCO ([id number])[facility]OD [facility] ([facility])[address] [place] [address] Blood type and Crossmatch pa kojo (Bld)on 12-14-2024 ABO group Nom (Bld) O [facility] Blood group antibody screen GEL Ql Negative [facility] D Ag Ql (RBC) Positive [facility] CBC (HEMOGRAM)on 12-14-2024 HEMATOCRIT Normal 35.0-47.0 [facility] Comment on above: Result Comment: Disr egard previously reported results.Corrected result: Previously reported as 20.8 % (reference range: 35.0-47.0 %) on 12/14/2024 at 0147 EDT. Performed By: #### L [id number] ####Civil Engineering Design Draftsperson: PHILLY FRANCO ([id number])[address] HEMOGLOBIN Normal 11.7-16.0 [facility] Comment on above: Result Comment: Disr egard previously reported results.Corrected result: Previously reported as 6.5 g/dL (reference range: 11.7-16.0 g/dL) on 12/14/2024 at 0147 EDT. Performed By: #### L [id number] ####Civil Engineering Design Draftsperson: PHILLY FRANCO ([id number])[address] MCH Normal 26.0-34.0 [facility] Comment on above: Result Comment: Disr egard previously reported results.Corrected result: Previously reported as 29.4 pg (reference range: 26.0-34.0 pg) on 12/14/2024 at 0147 EDT. Performed By: #### L [id number] ####Civil Engineering Design Draftsperson: PHILLY FRANCO ([id number])[address] MCHC Normal 30.5-36.0 [facility] Comment on above: Result Comment: Disr egard previously reported results.Corrected result: Previously reported as 31.3 % (reference range: 30.5-36.0 %) on 12/14/2024 at 0147 EDT. Performed By: #### L [id number] ####Civil Engineering Design Draftsperson: PHILLY FRANCO ([id number])[address] MCV Normal 77.0-99.0 [facility] Comment on above: Result Comment: Disr egard previously reported results.Corrected result: Previously reported as 94.1 fL (reference range: 77.0-99.0 fL) on 12/14/2024 at 0147 EDT. Performed By: #### L [id number] ####Civil Engineering Design Draftsperson: PHILLY FRANCO ([id number])[facility])[address] [place] [address] MPV Normal 9.0-12.7 [facility] Comment on above: Result Comment: Disr egard previously reported results.Corrected result: Previously reported as 10.6 fL (reference range: 9.0-12.7 fL) on 12/14/2024 at 0147 EDT.ORDER COMMENTS:Disregard previously reported results.Specimen contaminated with iv fluid Performed By: #### L [id number] ####Civil Engineering Design Draftsperson: PHILLY FRANCO ([id number])[facility])[address] [place] [address] PLATELET COUNT Normal 140-440 [facility] Comment on above: Result Comment: Disr egard previously reported results.Corrected result: Previously reported as 274 10*3/uL (reference range: 140-440 10*3/uL) on 12/14/2024 at 0147 EDT. Performed By: #### L [id number] ####Civil Engineering Design Draftsperson: PHILLY FRANCO ([id number])[facility])[address] [place] [address] RBC Normal 3.80-5.20 [facility] Comment on above: Result Comment: Disr egard previously reported results.Corrected result: Previously reported as 2.21 10*6/uL (reference range: 3.80-5.20 10*6/uL) on 12/14/2024 at 0147 EDT. Performed By: #### L [id number] ####Civil Engineering Design Draftsperson: PHILLY FRANCO ([id number])[facility])[address] [place] [address] RDW Normal 11.5-15.0 [facility] Comment on above: Result Comment: Disr egard previously reported results.Corrected result: Previously reported as 17.2 % (reference range: 11.5-15.0 %) on 12/14/2024 at 0147 EDT. Performed By: #### L [id number] ####Civil Engineering Design Draftsperson: PHILLY FRANCO ([id number])[facility])[address] [place] [address] WBC Normal 3.6-10.7 [facility] Comment on above: Result Comment: Disr david previously reported results.Corrected result: Previously reported as 11.9 10*3/uL (reference range: 3.6-10.7 10*3/uL) on 12/14/2024 at 0147 EDT. Performed By: #### L [id number] ####Civil Engineering Design Draftsperson: PHILLY FRANCO ([id number])[facility] ([facility] CBC W Auto Differential pane l (Bld)Ordered By: Alison Jain on 12-14-2024 Basophils (Bld) [#/Vol] 0.1 10*3/uL 0.0 - 0.2 10*3/uL [employer] [facility] Basophils/100 WBC (Bld) 0.8 % 0.0 - 2.0 % [facility] Eosinophils (Bld) [#/Vol] 0.4 10*3/uL 0.0 - 0.5 10*3/uL [facility] Eosinophils/100 WBC (Bld) 3.3 % 0.0 - 6.0 % [employer] [facility] Erythrocyte distribution width (RBC) [Ratio] 17.2 % High 11.5 - 15.0 % [employer] [facility] Hematocrit (Bld) [Volume fraction] 23.6 % Low 35.0 - 47.0 % [employer] [facility] Hemoglobin (Bld) [Mass/Vol] 7.5 g/dL Low 11.7 - 16.0 g/dL [employer] [facility] Immature granulocytes (Bld) [#/Vol] 0.1 10*3/uL High NINF - 0.1 10*3/uL [employer] [facility] Immature granulocytes/100 WBC (Bld) 0.4 % 0.0 - 2.0 % [facility] Interpretation and review of laboratory results Abnormal [employer] [facility] Lymphocytes (Bld) [#/Vol] 1.2 10*3/uL 1.0 - 4.3 10*3/uL [employer] [facility] Lymphocytes/100 WBC (Bld) 9 % Low 15.0 - 45.0 % [employer] [facility] MCH (RBC) [Entitic mass] 29.3 pg 26.0 - 34.0 pg [facility] MCHC (RBC) [Mass/Vol] 31.8 % 30.5 - 36.0 % [facility] MCV (RBC) [Entitic vol] 92.2 fL 77.0 - 99.0 fL [facility] Monocytes (Bld) [#/Vol] 1 10*3/uL High 0.0 - 0.9 10*3/uL [facility] Monocytes/100 WBC (Bld) 7.6 % 5.0 - 13.0 % [facility] Neutrophils (Bld) [#/Vol] 10.4 10*3/uL High 1.8 - 7.5 10*3/uL [facility] Neutrophils/100 WBC (Bld) 78.9 % 38.0 - 82.0 % [facility] Nucleated RBC/100 WBC (Bld) [Ratio] 0 % [facility] Platelet mean volume (Bld) [Entitic vol] 10.6 fL 9.0 - 12.7 fL [facility] Platelets (Bld) [#/Vol] 305 10*3/uL 140 - 440 10*3/uL [facility] RBC (Bld) [#/Vol] 2.56 10*6/uL Low 3.80 - 5.2 0 10*6/uL [facility] WBC (Bld) [#/Vol] 13.1 10*3/uL High 3.6 - 10.7 10*3/uL [facility] CBC WITH AUTO DIFFERENTIALon 12-14-2024 Basophils (Bld) [#/Vol] 0.1 10*3/uL Normal 0.0-0.2 [facility] Comment on above: Performed By: #### L [id number] ####[employer] Engineering Design Draftsperson: PHILLY FRANCO ([id number])[address] Basophils/100 WBC (Bld) 0.8 % Normal 0.0-2.0 S [facility] Comment on above: Performed By: #### L [id number] ####Civil Engineering Design Draftsperson: PHILLY FRANCO ([id number])[facility])[address] [place] [address] Eosinophils (Bld) [#/Vol] 0.4 10*3/uL Normal 0.0-0.5 [facility] Comment on above: Performed By: #### L [id number] ####Civil Engineering Design Draftsperson: PHILLY FRANCO ([id number])[facility])[address] [place] [address] Eosinophils/100 WBC (Bld) 3.3 % Normal 0.0-6.0 [facility] Comment on above: Performed By: #### L [id number] ####Civil Engineering Design Draftsperson: PHILLY FRANCO ([id number])[address] Erythrocyte distribution width (RBC) [Ratio] 17.2 % High 11.5-15.0 [facility] Comment on above: Performed By: #### L [id number] ####[employer] Design Draftsperson: PHILLY FRANCO ([id number])[address] Hematocrit (Bld) [Volume fraction] 23.6 % Low 35.0-47.0 [facility] Comment on above: Performed By: #### L [id number] ####[employer] Engineering Design Draftsperson: PHILLY FRANCO ([id number])[address] Hemoglobin (Bld) [Mass/Vol] 7.5 g/dL Low 11.7-16.0 [facility] Comment on above: Performed By: #### L [id number] ####[employer] Design Draftsperson: PHILLY FRANCO ([id number])[address] IMMATURE GRANS % 0.4 % Normal 0.0-2.0 [facility] Comment on above: Performed By: #### L [id number] ####Civil Engineering Design Draftsperson: PHILLY FRANCO ([id number])[address] IMMATURE GRANS ABSOLUTE 0.1 10*3/uL High <0.1 [facility] Comment on above: Performed By: #### L [id number] ####Civil Engineering Design Draftsperson: PHILLY FRANCO ([id number])[facility])[address] [place] [address] Lymphocytes (Bld) [#/Vol] 1.2 10*3/uL Normal 1.0-4.3 [facility] Comment on above: Performed By: #### L [id number] ####Civil Engineering Design Draftsperson: PHILLY FRANCO ([id number])[facility])[address] [place] [address] Lymphocytes/100 WBC (Bld) 9.0 % Low 15.0-45.0 [facility] Comment on above: Performed By: #### L [id number] ####Civil Engineering Design Draftsperson: PHILLY FRANCO ([id number])[facility])[address] [place] [address] MCH (RBC) [Entitic mass] 29.3 pg Normal 26.0-34.0 [facility] Comment on above: Performed By: #### L [id number] ####Civil Engineering Design Draftsperson: PHILLY FRANCO ([id number])[facility])[address] [place] [address] MCHC 31.8 % Normal 30.5-36.0 [facility] Comment on above: Performed By: #### L [id number] ####Civil Engineering Design Draftsperson: PHILLY FRANCO ([id number])[facility])[address] [place] [address] MCV (RBC) [Entitic vol] 92.2 fL Normal 77.0-99.0 [facility] Comment on above: Performed By: #### L [id number] ####Civil Engineering Design Draftsperson: PHILLY FRANCO ([id number])[facility] ([facility])[address] [place] [address] Monocytes (Bld) [#/Vol] 1.0 10*3/uL High 0.0-0.9 [facility] Comment on above: Performed By: #### L [id number] ####Civil Engineering Design Draftsperson: PHILLY FRANCO ([id number])[facility])[address] [place] [address] [place] Monocytes/100 WBC (Bld) 7.6 % Normal 5.0-13.0 [facility] Comment on above: Performed By: #### L [id number] ####Civil Engineering Design Draftsperson: PHILLY FRANCO ([id number])[facility] ([facility])[address] [place] [address] NEUTROPHILS ABSOLUTE 10.4 10*3/uL High 1.8-7.5 [facility] Comment on above: Performed By: #### L [id number] ####Civil Engineering Design Draftsperson: PHILLY FRANCO ([phone])[facility] ([facility])[address] [place] [address] Neutrophils/100 WBC (Bld) 78.9 % Normal 38.0-82.0 [facility] Comment on above: Performed By: #### L [id number] ####Civil Engineering Design Draftsperson: PHILLY FRANCO ([id number])[facility])[address] [place] [address] NRBC 0.0 /100 WBCs Normal 0.0-2.0 [facility] Comment on above: Performed By: #### L [id number] ####Civil Engineering Design Draftsperson: PHILLY FRANCO ([id number])[facility] ([facility])[address] [place] [address] Platelet mean volume (Bld) [Entitic vol] 10.6 fL Normal 9.0-12.7 [facility] Comment on above: Performed By: #### L [id number] ####Civil Engineering Design Draftsperson: PHILLY FRANCO ([id number])[facility] ([facility])[address] [place] [address] Platelets (Bld) [#/Vol] 305 10*3/uL Normal 140-440 [facility] Comment on above: Performed By: #### L [id number] ####Civil Engineering Design Draftsperson: PHILLY FRANCO ([id number])[facility] ([facility])[address] [place] [address] RBC (Bld) [#/Vol] 2.56 10*6/uL Low 3.80-5.20 [facility] Comment on above: Performed By: #### L [id number] ####Civil Engineering Design Draftsperson: PHILLY FRANCO ([id number])[facility] ([facility])[address] [place] [address] WBC (Bld) [#/Vol] 13.1 10*3/uL High 3.6-10.7 [facility] Comment on above: Performed By: #### L [id number] ####Civil Engineering Design Draftsperson: PHILLY FRANCO ([id number])[facility] ([facility])[address] [place] [address] CBC panel Auto (Bld)Ordered By: Beatriz Morales on 12-14-2024 Erythrocyte distribution width (RBC) [Ratio] [facility] Hematocrit (Bld) [Volume fraction] [facility] Hemoglobin (Bld) [Mass/Vol] [facility] MCH (RBC) [Entitic mass] [facility] MCHC (RBC) [Mass/Vol] [facility] MCV (RBC) [Entitic vol] S [facility] Platelet mean volume (Bld) [Entitic vol] [facility] Platelets (Bld) [#/Vol] S [facility] RBC (Bld) [#/Vol] [facility] WBC (Bld) [#/Vol] [facility] COMPREHENSIVE METABOLIC PANE Fam 12-14-2024 Albumin [Mass/Vol] 1.4 g/dL Low 3.4-4.8 [facility] Comment on above: Performed By: #### L [id number], LAB17 ####Civil Engineering Design Draftsperson: PHILLY FRANCO ([id number])[facility] ([facility])[address] [place] [address] ALP [Catalytic activity/Vol] 131 U/L Normal 40-150 [facility] Comment on above: Performed By: #### L AB113, LAB17 ####Civil Engineering Design Draftsperson: PHILLY FRANCO ([id number])[facility] ([facility])[address] [place] [address] ALT [Catalytic activity/Vol] 13 U/L Normal <30 [facility] Comment on above: Performed By: #### L AB113, LAB17 ####Civil Engineering Design Draftsperson: PHILLY FRANCO ([id number])[facility] ([facility])[address] [place] [address] Anion gap [Moles/Vol] 9 mmol/L Normal 3-13 [facility] Comment on above: Performed By: #### L AB113, LAB17 ####Civil Engineering Design Draftsperson: PHILLY FRANCO ([id number])[facility] [place] [address] AST [Catalytic activity/Vol] 50 U/L High <34 [facility] Comment on above: Performed By: #### L AB113, LAB17 ####Civil Engineering Design Draftsperson: PHILLY FRANCO ([id number])[facility] ([facility])[address] [place] [address] Bilirubin [Mass/Vol] 0.4 mg/dL Normal <1.2 [facility] Comment on above: Performed By: #### L ABAntonio, LAB17 ####Civil Engineering Design Draftsperson: PHILLY FRANCO ([phone])[facility])[address] [place] [address] Calcium [Mass/Vol] 7.5 mg/dL Low 8.8-10.0 [facility] Comment on above: Performed By: #### L AB113, LAB17 ####Civil Engineering Design Draftsperson: PHILLY FRANCO ([id number])[facility] [place] [address] [place] Chloride [Moles/Vol] 96 mmol/L Low 98-107 [facility] Comment on above: Performed By: #### L AB113, LAB17 ####Civil Engineering Design Draftsperson: PHILLY FRANCO ([id number])[facility] [place] [address] [place] CO2 [Moles/Vol] 25 mmol/L Normal 23-31 [facility] Comment on above: Performed By: #### L AB113, LAB17 ####Civil Engineering Design Draftsperson: PHILLY FRANCO ([id number])[facility] ([facility])[address] [place] [address] [place] Creatinine [Mass/Vol] 4.37 mg/dL High 0.57-1.11 [facility] Comment on above: Performed By: #### L AB113, LAB17 ####Civil Engineering Design Draftsperson: PHILLY FRANCO ([id number])[address] GLOMERULAR FILTRATION RATE ML/MIN/1.73 SQ M.PREDICTED 10.1 mL/min/1.73m*2 Low >60.0 [facility] Comment on above: Result Comment: Calc ulation based on the Chronic Kidney Disease Epidemiology Collaboration (CKD-EPI) equation refit without adjustment for race Performed By: #### L AB113, LAB17 ####Civil Engineering Design Draftsperson: PHILLY FRANCO ([id number])[address] Glucose [Mass/Vol] 95 mg/dL Normal 82-115 [facility] Comment on above: Performed By: #### L AB113, LAB17 ####Civil Engineering Design Draftsperson: PHILLY FRANCO ([id number])[address] Potassium [Moles/Vol] 3.7 mmol/L Normal 3.5-5.1 [facility] Comment on above: Result Comment: [facility] potassium values may be up to 0.5 mmol/L lower than serum values. Performed By: #### L AB113, LAB17 ####Civil Engineering Design Draftsperson: PHILLY FRANCO ([id number])[address] Protein [Mass/Vol] 6.2 g/dL Low 6.4-8.3 [facility] Comment on above: Performed By: #### L AB113, LAB17 ####Civil Engineering Design Draftsperson: PHILLY FRANCO ([id number])[address] Sodium [Moles/Vol] 130 mmol/L Low 136-145 [facility] Comment on above: Performed By: #### L AB113, LAB17 ####Civil Engineering Design Draftsperson: PHILLY FRANCO ([id number])[facility] ([facility])[address] [place] [address] Urea nitrogen [Mass/Vol] 26 mg/dL High 9-23 [facility] Comment on above: Performed By: #### L AB113, LAB17 ####Civil Engineering Design Draftsperson: PHILLY FRANCO ([id number])[facility] ([facility])[address] [place] [address] Comprehensive metabolic 1998 panelon 12-14-2024 Albumin [Mass/Vol] 1.4 g/dL Low 3.4 - 4.8 g/dL [facility] ALP [Catalytic activity/Vol] 131 U/L 40 - 150 U/L [facility] ALT [Catalytic activity/Vol] 13 U/L NINF - 30 U/L [facility] Anion gap [Moles/Vol] 9 mmol/L 3 - 13 mmol/L [facility] AST [Catalytic activity/Vol] 50 U/L High NINF - 34 U/L [facility] Bilirubin [Mass/Vol] 0.4 mg/dL NINF - 1.2 mg/dL [facility] Calcium [Mass/Vol] 7.5 mg/dL Low 8.8 - 10. 0 mg/dL [facility] Chloride [Moles/Vol] 96 mmol/L Low 98 - 10 7 mmol/L [facility] CO2 [Moles/Vol] 25 mmol/L 23 - 31 mmol/L [facility] Creatinine [Mass/Vol] 4.37 mg/dL High 0.57 - 1.11 mg/dL [facility] GFR/1.73 sq M.predicted (S/P/Bld) [Vol rate/Area] 10.1 mL/min Low - PINF [facility] Glucose [Mass/Vol] 95 mg/dL 82 - 115 mg/dL [facility] Interpretation and review of laboratory results Abnormal [facility] Potassium [Moles/Vol] 3.7 mmol/L 3.5 - 5.1 mmol/L [facility] Protein [Mass/Vol] 6.2 g/dL Low 6.4 - 8.3 g/dL [facility] Sodium [Moles/Vol] 130 mmol/L Low 136 - 145 mmol/L [facility] Urea nitrogen [Mass/Vol] 26 mg/dL High 9 - 23 mg/dL [facility] Consulton 12-14-2024 Consult Normal [facility] Laboratory - Chemistry and C hemistry - challengeon 12-14-2024 Glucose [Mass/Vol] 117 mg/dL High 70 - 100 mg/dL [facility] Glucose [Mass/Vol] 96 mg/dL 70 - 100 mg/dL [facility] Glucose [Mass/Vol] 104 mg/dL High 70 - 100 mg/dL [facility] Ammonia (P) [Moles/Vol] 26 umol/L 18 - 72 umol/L [facility] Glucose [Mass/Vol] 98 mg/dL 70 - 100 mg/dL [facility] No Panel Informationon 12-14 Interpretation and review of laboratory results Abnormal [facility] Interpretation and review of laboratory results Normal [facility] Interpretation and review of laboratory results Abnormal [facility] Interpretation and review of laboratory results Normal [facility] Interpretation and review of laboratory results Normal [facility] Nursing Noteon 12-14-2024 Nursing Note Normal [facility] PHOSPHORUSon 12-14-2024 Phosphate [Mass/Vol] 2.3 mg/dL Normal 2.3-4.7 [facility] Comment on above: Performed By: #### L AB113, LAB17 ####[employer] Design Draftsperson: PHILLY FRANCO ([id number])[address] Phosphate [Moles/Vol]on 12-04 Interpretation and review of laboratory results Normal [facility] Phosphate [Mass/Vol] 2.3 mg/dL 2.3 - 4 .7 mg/dL [facility] Progress Noteon 12-14-2024 Progress Note Normal [facility] Progress Note Normal [facility] Progress Note Normal [facility] Progress Note Normal [facility] Progress Note Normal [facility] Progress Note Normal [facility] Progress Note Normal [facility] [id number] 12-13-2024 [id number] Normal [facility] [id number] Normal [facility] BASIC METABOLIC PANELon 12-04 Anion gap [Moles/Vol] 9 mmol/L Normal 3-13 [facility] Comment on above: Performed By: #### L AB67, LAB15, [id number], [id number] ####Civil Engineering Design Draftsperson: PHILLY FRANCO ([id number])[facility])[address] [place] [address] Calcium [Mass/Vol] 7.8 mg/dL Low 8.8-10.0 [facility] Comment on above: Performed By: #### L AB67, LAB15, [id number], [id number] ####[employer] Design Draftsperson: PHILLY FRANCO ([id number])[facility])[address] [place] [address] Chloride [Moles/Vol] 100 mmol/L Normal 98-107 [facility] Comment on above: Performed By: #### L AB67, LAB15, [id number], [id number] ####Civil Engineering Design Draftsperson: PHILLY FRANCO ([id number])[facility])[address] [place] [address] CO2 [Moles/Vol] 25 mmol/L Normal 23-31 [facility] Comment on above: Performed By: #### L AB67, LAB15, [id number], [id number] ####Civil Engineering Design Draftsperson: PHILLY FRANCO ([id number])[facility])[address] [place] [address] Creatinine [Mass/Vol] 3.82 mg/dL High 0.57-1.11 [facility] Comment on above: Performed By: #### L AB67, LAB15, ICC416, [id number] ####Civil Engineering Design Draftsperson: PHILLY FRANCO ([id number])[facility])[address] [place] [address] GLOMERULAR FILTRATION RATE ML/MIN/1.73 SQ M.PREDICTED 11.9 mL/min/1.73m*2 Low >60.0 [facility] Comment on above: Result Comment: Calc ulation based on the Chronic Kidney Disease Epidemiology Collaboration (CKD-EPI) equation refit without adjustment for race Performed By: #### L AB67, LAB15, [id number], [id number] ####Civil [employer] Design Draftsperson: PHILLY FRANCO ([id number])[facility])[address] [place] [address] Glucose [Mass/Vol] 47 mg/dL Critically low 82-115 [facility] Comment on above: Performed By: #### L AB67, LAB15, FWR119, [id number] ####Civil Engineering Design Draftsperson: PHILLY FRANCO ([id number])[facility])[address] [place] [address] Potassium [Moles/Vol] 4.2 mmol/L Normal 3.5-5.1 [facility] Comment on above: Result Comment: [facility] potassium values may be up to 0.5 mmol/L lower than serum values. Performed By: #### L AB67, LAB15, GIB367, UVD428 ####Civil Engineering Design Draftsperson: PHILLY FRANCO ([id number])[facility])[address] [place] [address] Sodium [Moles/Vol] 134 mmol/L Low 136-145 [facility] Comment on above: Performed By: #### L AB67, LAB15, ZQS204, [id number] ####Civil Engineering Design Draftsperson: PHILLY FRANCO ([id number])[facility] ([facility])[address] [place] [address] Urea nitrogen [Mass/Vol] 22 mg/dL Normal 9-23 [facility] Comment on above: Performed By: #### L AB67, LAB15, [id number], RDB636 ####Civil Engineering Design Draftsperson: PHILLY FRANCO ([id number])[facility])[address] [place] [address] Basic metabolic 1998 panelOr dered By: Yogi Stanley on 12-13-2024 Anion gap [Moles/Vol] 9 mmol/L 3 - 13 mmol/L [facility] Calcium [Mass/Vol] 7.8 mg/dL Low 8.8 - 10. 0 mg/dL [facility] Chloride [Moles/Vol] 100 mmol/L 98 - 10 7 mmol/L [facility] CO2 [Moles/Vol] 25 mmol/L 23 - 31 mmol/L [facility] Creatinine [Mass/Vol] 3.82 mg/dL High 0.57 - 1.11 mg/dL [facility] GFR/1.73 sq M.predicted (S/P/Bld) [Vol rate/Area] 11.9 mL/min Low - PINF [facility] Glucose [Mass/Vol] 47 mg/dL Critically low 82 - 11 5 mg/dL [facility] Interpretation and review of laboratory results Abnormal [facility] Potassium [Moles/Vol] 4.2 mmol/L 3.5 - 5.1 mmol/L [facility] Sodium [Moles/Vol] 134 mmol/L Low 136 - 145 mmol/L [facility] Urea nitrogen [Mass/Vol] 22 mg/dL 9 - 23 mg/dL [facility] C-REACTIVE PROTEINon 025 CRP [Mass/Vol] 133.0 mg/L High <5.0 [facility] Comment on above: Performed By: #### L AB67, LAB15, [id number], TRB749 ####Civil Engineering Design Draftsperson: PHILLY FRANCO ([id number])[facility])[address] [place] [address] CBC (HEMOGRAM)on 12-13-2024 Erythrocyte distribution width (RBC) [Ratio] 17.6 % High 11.5-15.0 [facility] Comment on above: Performed By: #### L AB294 ####Civil [employer] Design Draftsperson: PHILLY FRANCO ([id number])[facility])[address] [place] [address] Hematocrit (Bld) [Volume fraction] 25.3 % Low 35.0-47.0 [facility] Comment on above: Performed By: #### L AB294 ####Civil Engineering Design Draftsperson: PHILLY FRANCO ([id number])[facility])[address] [place] [address] Hemoglobin (Bld) [Mass/Vol] 8.0 g/dL Low 11.7-16.0 [facility] Comment on above: Performed By: #### L AB294 ####[employer] Design Draftsperson: PHILLY FRANCO ([id number])[facility])[address] [place] [address] MCH (RBC) [Entitic mass] 29.1 pg Normal 26.0-34.0 [facility] Comment on above: Performed By: #### L AB294 ####[employer] Design Draftsperson: PHILLY FRANCO ([id number])[facility])[address] [place] [address] MCHC 31.6 % Normal 30.5-36.0 [facility] Comment on above: Performed By: #### L AB294 ####Civil Engineering Design Draftsperson: PHILLY FRANCO ([id number])[facility] ([facility])[address] [place] [address] MCV (RBC) [Entitic vol] 92.0 fL Normal 77.0-99.0 S [facility] Comment on above: Performed By: #### L AB294 ####[employer] Design Draftsperson: PHILLY FRANCO ([phone])[facility])[address] [place] [address] Platelet mean volume (Bld) [Entitic vol] 10.5 fL Normal 9.0-12.7 [facility] Comment on above: Performed By: #### L AB294 ####[employer] Draftsperson: PHILLY FRANCO ([id number])[facility] ([facility])[address] [place] [address] Platelets (Bld) [#/Vol] 312 10*3/uL Normal 140-440 [facility] Comment on above: Performed By: #### L [id number] ####Civil Engineering Design Draftsperson: PHILLY FRANCO ([id number])[facility])[address] [place] [address] RBC (Bld) [#/Vol] 2.75 10*6/uL Low 3.80-5.20 [facility] Comment on above: Performed By: #### L [id number] ####Civil Engineering Design Draftsperson: PHILLY FRANCO ([id number])[facility])[address] [place] [address] WBC (Bld) [#/Vol] 16.5 10*3/uL High 3.6-10.7 [facility] Comment on above: Performed By: #### L [id number] ####Civil Engineering Design Draftsperson: PHILLY FRANCO ([id number])[facility] ([address] CBC panel Auto (Bld)on 12-13 Erythrocyte distribution width (RBC) [Ratio] 17.6 % High 11.5 - 15.0 % [facility] Hematocrit (Bld) [Volume fraction] 25.3 % Low 35.0 - 47.0 % [facility] Hemoglobin (Bld) [Mass/Vol] 8 g/dL Low 11.7 - 16.0 g/dL [facility] Interpretation and review of laboratory results Abnormal [facility] MCH (RBC) [Entitic mass] 29.1 pg 26.0 - 34.0 pg [facility] MCHC (RBC) [Mass/Vol] 31.6 % 30.5 - 36.0 % [facility] MCV (RBC) [Entitic vol] 92 fL 77.0 - 99.0 fL [facility] Platelet mean volume (Bld) [Entitic vol] 10.5 fL 9.0 - 12.7 fL [facility] Platelets (Bld) [#/Vol] 312 10*3/uL 140 - 440 10*3/uL [facility] RBC (Bld) [#/Vol] 2.75 10*6/uL Low 3.80 - 5.2 0 10*6/uL [facility] WBC (Bld) [#/Vol] 16.5 10*3/uL High 3.6 - 10.7 10*3/uL [facility] CRP [Mass/Vol]on 12-13-2024 Interpretation and review of laboratory results Abnormal [facility] Cobalamin (Vitamin B12) [Mas s/Vol]on 12-13-2024 Interpretation and review of laboratory results Abnormal [facility] Consulton 12-13-2024 Consult Normal [facility] Consult Normal [facility] Consult Normal [facility] ECG 12-LEADon 12-13-2024 ECG 12-LEAD IMPRESSION: Sinus rhythm Probable LVH with secondary repol abnrm Electronically Signed On 12-13-2024 19:24:44 EDT by Bhavik Estrada Normal [facility] Laboratory - Chemistry and C hemistry - challengeon 12-13-2024 Glucose [Mass/Vol] 105 mg/dL High 70 - 100 mg/dL [facility] Cobalamin (Vitamin B12) [Mass/Vol] 1419 pg/mL High 213 - 816 pg/mL [facility] TSH Qn 0.83 m[IU]/L [facility] Glucose [Mass/Vol] 105 mg/dL High 70 - 100 mg/dL [facility] CRP [Mass/Vol] 133 mg/L High NINF - 5.0 mg/L [facility] Glucose [Mass/Vol] 78 mg/dL 70 - 100 mg/dL [facility] Glucose [Mass/Vol] 55 mg/dL Low 70 - 100 mg/dL [facility] Laboratory - Drug toxicology on 12-13-2024 Vancomycin [Mass/Vol] 15.4 ug/mL [facility] No Panel InformationOrdered By: Bhavik Estrada on 12-13-2024 P Clayton 61 degrees [facility] Work Phone: NC Interval 121 ms [facility] Work Phone: QRS Clayton 20 degrees [facility] Work Phone: QRSD Interval 72 ms [facility] Work Phone: QT Interval 360 ms [facility] Work Phone: QTC Interval 451 ms [facility] Phone: T Wave Clayton 19 degrees [facility] Phone: [facility] Work Phone: [phone] No Panel Informationon 12-13 CV EPIPHANY [facility] Interpretation and review of laboratory results Abnormal [facility] Interpretation and review of laboratory results Abnormal [facility] Interpretation and review of laboratory results Normal [facility] Interpretation and review of laboratory results Abnormal [facility] Nursing Noteon 12-13-2024 Nursing Note Brother Deshawn notified of using soft wrist restrained. Normal [facility] Nursing Note Unable to run pt tonight due to access issues, Dr Castaneda notified, order of cathflow ordered and placed in the access. Access to be reassessed in the morning. This RN will relay message to AM charge nurse. Normal [facility] Nursing Note Normal [facility] Progress Noteon 12-13-2024 Progress Note Normal [facility] Progress Note Normal [facility] Progress Note Normal [facility] Progress Note Normal [facility] Progress Note Normal [facility] Progress Note PHYSICAL THERAPY [facility] Name/MRN: Apoorva Gonzalez ([id number]) Date: 12/13/2024 Plans for MRI with sedation, also has pending shoulder x-rays. Will continue to hold and assess at a later time as able. Guilherme Tavares, PT Normal [facility] Progress Note Normal [facility] Progress Note To schedule mri with sedation please call [phone] Normal [facility] THYROID STIMULATING HORMONEo n 12-13-2024 THYROID STIMULATING HORMONE 0.83 uIU/mL Normal 0.35-4.94 [facility] Comment on above: Performed By: #### L AB67, LAB15, [id number], [id number] ####Civil Engineering Design Draftsperson: PHILLY FRANCO ([id number])[facility] ([facility])[address] [place] [address] TSH Qnon 12-13-2024 Interpretation and review of laboratory results Normal [facility], RANDOMon 025 VANCOMYCIN 15.4 ug/mL Normal [facility] Comment on above: Result Comment: GUERO Amanda COMMENTS:Please obtain 4 hours after the end of hemodialysisToxicity is seen at concentrations >80-100 ug/mLTherapeutic (Peak) range: 20-40Therapeutic (Trough) range: 5-10 Performed By: #### L AB40 ####Civil Engineering Design Draftsperson: PHILLY FRANCO ([id number])[facility] ([facility])[address] [place] [address] VITAMIN B12on 12-13-2024 Cobalamin (Vitamin B12) [Mass/Vol] 1419 pg/mL High 213-816 [facility] Comment on above: Performed By: #### L AB67, LAB15, [id number], [id number] ####Civil Engineering Design Draftsperson: PHILLY FRANCO ([id number])[facility] [place] [address] Vital signsOrdered By: [place] Estrada on 12-13-2024 Heart rate 94 /min bpm [facility] Work Phone: XR SHOULDER 2+ VIEWS LEFTon 12-13-2024 XR SHOULDER 2+ VIEWS LEFT Normal [facility] XR Shoulder - left 2 Viewson 12-13-2024 [facility] Radiology Study observation (narrative) [facility] XR Shoulder - left 2 ViewsOr dered By: Barrera Stack on 12-13-2024 [facility] Work Phone: [phone] 12-12-2024 [id number] Normal [facility] [id number] 12-12-2024 [id number] Normal [facility] BLOOD CULTUREon 12-12-2024 Bacteria identified Cx Nom (Bld) Normal [facility] Comment on above: Performed By: #### L [id number] ####Civil Engineering Design Draftsperson: PHILLY FRANCO ([id number])[facility] ([address] CBC W Auto Differential pane l (Bld)on 12-12-2024 Basophils (Bld) [#/Vol] 0.1 10*3/uL 0.0 - 0.2 10*3/uL [facility] Basophils/100 WBC (Bld) 1.2 % 0.0 - 2.0 % [facility] Eosinophils (Bld) [#/Vol] 0.2 10*3/uL 0.0 - 0.5 10*3/uL [facility] Eosinophils/100 WBC (Bld) 2.1 % 0.0 - 6.0 % [facility] Erythrocyte distribution width (RBC) [Ratio] 17.8 % High 11.5 - 15.0 % [facility] Hematocrit (Bld) [Volume fraction] 24.8 % Low 35.0 - 47.0 % [facility] Hemoglobin (Bld) [Mass/Vol] 8 g/dL Low 11.7 - 16.0 g/dL [facility] Immature granulocytes (Bld) [#/Vol] 0.1 10*3/uL High NINF - 0.1 10*3/uL [facility] Immature granulocytes/100 WBC (Bld) 0.4 % 0.0 - 2.0 % [facility] Interpretation and review of laboratory results Abnormal [facility] Lymphocytes (Bld) [#/Vol] 1 10*3/uL 1.0 - 4.3 10*3/uL [facility] Lymphocytes/100 WBC (Bld) 8.5 % Low 15.0 - 45.0 % [facility] MCH (RBC) [Entitic mass] 29.7 pg 26.0 - 34.0 pg [facility] MCHC (RBC) [Mass/Vol] 32.3 % 30.5 - 36.0 % [facility] MCV (RBC) [Entitic vol] 92.2 fL 77.0 - 99.0 fL [facility] Monocytes (Bld) [#/Vol] 0.6 10*3/uL 0.0 - 0.9 10*3/uL [facility] Monocytes/100 WBC (Bld) 4.9 % Low 5.0 - 13.0 % [facility] Neutrophils (Bld) [#/Vol] 9.5 10*3/uL High 1.8 - 7.5 10*3/uL [facility] Neutrophils/100 WBC (Bld) 82.9 % High 38.0 - 82.0 % [facility] Nucleated RBC/100 WBC (Bld) [Ratio] 0 % [facility] Platelet mean volume (Bld) [Entitic vol] 10.7 fL 9.0 - 12.7 fL [facility] Platelets (Bld) [#/Vol] 332 10*3/uL 140 - 440 10*3/uL [facility] RBC (Bld) [#/Vol] 2.69 10*6/uL Low 3.80 - 5.2 0 10*6/uL [facility] WBC (Bld) [#/Vol] 11.5 10*3/uL High 3.6 - 10.7 10*3/uL [facility] CBC WITH AUTO DIFFERENTIALon 12-12-2024 Basophils (Bld) [#/Vol] 0.1 10*3/uL Normal 0.0-0.2 [facility] Comment on above: Performed By: #### L [id number] ####Civil Engineering Design Draftsperson: PHILLY FRANCO ([id number])[facility] ([address] Basophils/100 WBC (Bld) 1.2 % Normal 0.0-2.0 [facility] Comment on above: Performed By: #### L [id number] ####Civil Engineering Design Draftsperson: PHILLY FRANCO ([id number])[facility])[address] [place] [address] Eosinophils (Bld) [#/Vol] 0.2 10*3/uL Normal 0.0-0.5 [facility] Comment on above: Performed By: #### L [id number] ####Civil Engineering Design Draftsperson: PHILLY FRANCO ([id number])[facility])[address] [place] [address] Eosinophils/100 WBC (Bld) 2.1 % Normal 0.0-6.0 [facility] Comment on above: Performed By: #### L [id number] ####Civil Engineering Design Draftsperson: PHILLY FRANCO ([id number])[facility])[address] [place] [address] Erythrocyte distribution width (RBC) [Ratio] 17.8 % High 11.5-15.0 [facility] Comment on above: Performed By: #### L [id number] ####Civil Engineering Design Draftsperson: PHILLY FRANCO ([id number])[facility])[address] [place] [address] Hematocrit (Bld) [Volume fraction] 24.8 % Low 35.0-47.0 [facility] Comment on above: Performed By: #### L [id number] ####Civil Engineering Design Draftsperson: PHILLY FRANCO ([id number])[facility])[address] [place] [address] Hemoglobin (Bld) [Mass/Vol] 8.0 g/dL Low 11.7-16.0 [facility] Comment on above: Performed By: #### L [id number] ####Civil Engineering Design Draftsperson: PHILLY FRANCO ([id number])[facility])[address] [place] [address] IMMATURE GRANS % 0.4 % Normal 0.0-2.0 [facility] Comment on above: Performed By: #### L [id number] ####Civil Engineering Design Draftsperson: PHILLY FRANCO ([id number])[facility])[address] [place] [address] IMMATURE GRANS ABSOLUTE 0.1 10*3/uL High <0.1 [facility] Comment on above: Performed By: #### L [id number] ####Civil Engineering Design Draftsperson: PHILLY FRANCO ([id number])[facility])[address] [place] [address] Lymphocytes (Bld) [#/Vol] 1.0 10*3/uL Normal 1.0-4.3 [facility] Comment on above: Performed By: #### L [id number] ####Civil Engineering Design Draftsperson: PHILLY FRANCO ([id number])[address] Lymphocytes/100 WBC (Bld) 8.5 % Low 15.0-45.0 [facility] Comment on above: Performed By: #### L [id number] ####Civil Engineering Design Draftsperson: PHILLY FRANCO ([id number])[facility])[address] [place] [address] MCH (RBC) [Entitic mass] 29.7 pg Normal 26.0-34.0 [facility] Comment on above: Performed By: #### L [id number] ####Civil Engineering Design Draftsperson: PHILLY FRANCO ([id number])[address] MCHC 32.3 % Normal 30.5-36.0 [facility] Comment on above: Performed By: #### L [id number] ####Civil Engineering Design Draftsperson: PHILLY FRANCO ([id number])[address] MCV (RBC) [Entitic vol] 92.2 fL Normal 77.0-99.0 S [facility] Comment on above: Performed By: #### L [id number] ####Civil Engineering Design Draftsperson: PHILLY [id number])[facility] ([facility])[address] [place] [address] Monocytes (Bld) [#/Vol] 0.6 10*3/uL Normal 0.0-0.9 [facility] Comment on above: Performed By: #### L [id number] ####Civil Engineering Design Draftsperson: PHILLY FRANCO ([id number])[facility] ([facility])[address] [place] [address] Monocytes/100 WBC (Bld) 4.9 % Low 5.0-13.0 [facility] Comment on above: Performed By: #### L [id number] ####Civil Engineering Design Draftsperson: PHILLY FRANCO ([phone])[facility])[address] [place] [address] NEUTROPHILS ABSOLUTE 9.5 10*3/uL High 1.8-7.5 [facility] Comment on above: Performed By: #### L [id number] ####Civil Engineering Design Draftsperson: PHILLY FRANCO ([id number])[facility] ([facility])[address] [place] [address] Neutrophils/100 WBC (Bld) 82.9 % High 38.0-82.0 [facility] Comment on above: Performed By: #### L [id number] ####Civil Engineering Design Draftsperson: PHILLY FRANCO ([id number])[facility])[address] [place] [address] NRBC 0.0 /100 WBCs Normal 0.0-2.0 [facility] Comment on above: Performed By: #### L [id number] ####Civil Engineering Design Draftsperson: PHILLY FRANCO ([id number])[facility] ([facility])[address] [place] [address] Platelet mean volume (Bld) [Entitic vol] 10.7 fL Normal 9.0-12.7 [facility] Comment on above: Performed By: #### L [id number] ####Civil Engineering Design Draftsperson: PHILLY FRANCO ([id number])[facility] ([facility])[address] [place] [address] [place] Platelets (Bld) [#/Vol] 332 10*3/uL Normal 140-440 [facility] Comment on above: Performed By: #### L [id number] ####Civil Engineering Design Draftsperson: PHILLY FRANCO ([id number])[facility] ([facility])[address] [place] [address] RBC (Bld) [#/Vol] 2.69 10*6/uL Low 3.80-5.20 [facility] Comment on above: Performed By: #### L [id number] ####Civil Engineering Design Draftsperson: PHILLY FRANCO ([id number])[facility] ([facility])[address] [place] [address] WBC (Bld) [#/Vol] 11.5 10*3/uL High 3.6-10.7 [facility] Comment on above: Performed By: #### L [id number] ####Civil Engineering Design Draftsperson: PHILLY FRANCO ([id number])[facility] ([facility])[address] [place] [address] COMPREHENSIVE METABOLIC PANE Fam 12-12-2024 Albumin [Mass/Vol] 1.4 g/dL Low 3.4-4.8 [facility] Comment on above: Performed By: #### L [id number] ####Civil Engineering Design Draftsperson: PHILLY FRANCO ([id number])[facility])[address] [place] [address] ALP [Catalytic activity/Vol] 131 U/L Normal 40-150 [facility] Comment on above: Performed By: #### L [id number] ####Civil Engineering Design Draftsperson: PHILLY FRANCO ([id number])[facility])[address] [place] [address] ALT [Catalytic activity/Vol] 10 U/L Normal <30 [facility] Comment on above: Performed By: #### L AB17 ####Civil Engineering Design Draftsperson: PHILLY FRANCO ([id number])[facility])[address] [place] [address] Anion gap [Moles/Vol] 11 mmol/L Normal 3-13 [facility] Comment on above: Performed By: #### L [id number] ####Civil Engineering Design Draftsperson: PHILLY FRANCO ([id number])[facility] ([facility] [place] [address] [place] AST [Catalytic activity/Vol] 36 U/L High <34 [facility] Comment on above: Performed By: #### L AB17 ####Civil Engineering Design Draftsperson: PHILLY FRANCO ([id number])[facility] [place] [address] [place] Bilirubin [Mass/Vol] 0.4 mg/dL Normal <1.2 [facility] Comment on above: Performed By: #### L AB17 ####Civil Engineering Design Draftsperson: PHILLY FRANCO ([id number])[facility] ([facility])[address] [place] [address] Calcium [Mass/Vol] 7.8 mg/dL Low 8.8-10.0 [facility] Comment on above: Performed By: #### L [id number] ####Civil Engineering Design Draftsperson: PHILLY FRANCO ([id number])[facility] [place] [address] [place] Chloride [Moles/Vol] 100 mmol/L Normal 98-107 [facility] Comment on above: Performed By: #### L [id number] ####Civil Engineering Design Draftsperson: PHILLY FRANCO ([id number])[facility] [place] [address] [place] CO2 [Moles/Vol] 26 mmol/L Normal 23-31 [facility] Comment on above: Performed By: #### L [id number] ####Civil Engineering Design Draftsperson: PHILLY FRANCO ([id number])[facility] [place] [address] [place] Creatinine [Mass/Vol] 5.60 mg/dL High 0.57-1.11 [facility] Comment on above: Performed By: #### L [id number] ####Civil Engineering Design Draftsperson: PHILLY FRANCO ([id number])[facility])[address] [place] [address] [place] GLOMERULAR FILTRATION RATE ML/MIN/1.73 SQ M.PREDICTED 7.5 mL/min/1.73m*2 Low >60.0 [facility] Comment on above: Result Comment: Calc ulation based on the Chronic Kidney Disease Epidemiology Collaboration (CKD-EPI) equation refit without adjustment for race Performed By: #### L [id number] ####Civil Engineering Design Draftsperson: PHILLY FRANCO ([id number])[facility])[address] [place] [address] Glucose [Mass/Vol] 77 mg/dL Low 82-115 [facility] Comment on above: Performed By: #### L [id number] ####Civil Engineering Design Draftsperson: PHILLY FRANCO ([id number])[facility])[address] [place] [address] Potassium [Moles/Vol] 4.1 mmol/L Normal 3.5-5.1 [facility] Comment on above: Result Comment: [facility] potassium values may be up to 0.5 mmol/L lower than serum values. Performed By: #### L [id number] ####Civil Engineering Design Draftsperson: PHILLY FRANCO ([id number])[facility] ([facility])[address] [place] [address] Protein [Mass/Vol] 6.1 g/dL Low 6.4-8.3 [facility] Comment on above: Performed By: #### L [id number] ####Civil Engineering Design Draftsperson: PHILLY FRANCO ([id number])[facility])[address] [place] [address] Sodium [Moles/Vol] 137 mmol/L Normal 136-145 [facility] Comment on above: Performed By: #### L [id number] ####Civil Engineering Design Draftsperson: PHILLY FRANCO ([id number])[facility])[address] [place] [address] Urea nitrogen [Mass/Vol] 38 mg/dL High 9-23 [facility] Comment on above: Performed By: #### L [id number] ####Civil Engineering Design Draftsperson: PHILLY FRANCO ([id number])[facility])[address] [place] [address] CT HEAD WO IV CONTRASTon CT HEAD WO IV CONTRAST Normal [facility] Head WO contraston 2024 [facility] Radiology Study observation (narrative) [facility] Comprehensive metabolic 1998 panelon 12-12-2024 Albumin [Mass/Vol] 1.4 g/dL Low 3.4 - 4.8 g/dL [facility] ALP [Catalytic activity/Vol] 131 U/L 40 - 150 U/L [facility] ALT [Catalytic activity/Vol] 10 U/L NINF - 30 U/L [facility] Anion gap [Moles/Vol] 11 mmol/L 3 - 13 mmol/L [facility] AST [Catalytic activity/Vol] 36 U/L High NINF - 34 U/L [facility] Bilirubin [Mass/Vol] 0.4 mg/dL NINF - 1.2 mg/dL [facility] Calcium [Mass/Vol] 7.8 mg/dL Low 8.8 - 10. 0 mg/dL [facility] Chloride [Moles/Vol] 100 mmol/L 98 - 10 7 mmol/L [facility] CO2 [Moles/Vol] 26 mmol/L 23 - 31 mmol/L [facility] Creatinine [Mass/Vol] 5.6 mg/dL High 0.57 - 1.11 mg/dL [facility] GFR/1.73 sq M.predicted (S/P/Bld) [Vol rate/Area] 7.5 mL/min Low - PINF [facility] Glucose [Mass/Vol] 77 mg/dL Low 82 - 115 mg/dL [facility] Interpretation and review of laboratory results Abnormal [facility] Potassium [Moles/Vol] 4.1 mmol/L 3.5 - 5.1 mmol/L [facility] Protein [Mass/Vol] 6.1 g/dL Low 6.4 - 8.3 g/dL [facility] Sodium [Moles/Vol] 137 mmol/L 136 - 145 mmol/L [facility] Urea nitrogen [Mass/Vol] 38 mg/dL High 9 - 23 mg/dL [facility] Consulton 12-12-2024 Consult Normal [facility] Laboratory - Chemistry and C hemistry - challengeon 12-12-2024 Glucose [Mass/Vol] 117 mg/dL High 70 - 100 mg/dL [facility] Glucose [Mass/Vol] 63 mg/dL Low 70 - 100 mg/dL [facility] Glucose [Mass/Vol] 72 mg/dL 70 - 100 mg/dL [facility] No Panel Informationon 12-12 Interpretation and review of laboratory results Abnormal [facility] [place] Interpretation and review of laboratory results Abnormal [facility] [place] Interpretation and review of laboratory results Normal [facility] [place] Nursing Noteon 12-12-2024 Nursing Note Normal [facility] Nursing Note Patient's significan t other had to be stopped from pouring water into patient's mouth. He said that he knows she has to be thirsty. RN educated on why you cannot do this as it can cause aspiration. Normal [facility] Nursing Note Normal [facility] Nursing Note Normal [facility] Nursing Note Patient to xray Normal [facility] Progress Noteon 12-12-2024 Progress Note OCCUPATIONAL THERAPY [facility] Name/MRN: Apoorva Gonzalez ([id number]) Date: 12/12/2024 Attempt Note Attempted OT eval. Awaiting results of C-spine MRI. ~Jelly Gleason MS, OTR/L Normal [facility] Progress Note Normal [facility] Progress Note Normal [facility] Progress Note Normal [facility] Progress Note Normal [facility] Progress Note MRI attempted again; pt. Unable to tolerate exam. Pt. Very confused, hitting head on camera, swinging arms and groaning. Too dangerous to leave pt. Alone on scanner due to fear of personal injury to self. MRI aborted. Normal [facility] Progress Note Normal [facility] XR ABDOMEN 1 VIEWon 12-13-19 25 XR ABDOMEN 1 VIEW Normal [facility] XR Abdomen Single viewon [facility] XR CHEST 1 VIEWon 12-12-2024 XR CHEST 1 VIEW Normal [facility] XR Chest Single viewon 12-12 [facility] 25-hydroxyvitamin D3 [Mass/V ol]on 12-11-2024 Interpretation and review of laboratory results Abnormal [facility] [place] BLOOD GAS ARTERIALon 025 AMOUNT OF OXYGEN 21 Normal [facility] Comment on above: Performed By: #### L [id number] ####Civil Engineering Design Draftsperson: PHILLY FRANCO ([id number])[facility] ([facility])[address] [place] [address] Base excess Calc (Bld) [Moles/Vol] 3.6 mmol/L High -3.0-3.0 [facility] Comment on above: Performed By: #### L [id number] ####Civil Engineering Design Draftsperson: PHILLY FRANCO ([id number])[facility] ([facility])[address] [place] [address] CO2 [Moles/Vol] 28.8 mmol/L High 23.0-27.0 [facility] Comment on above: Performed By: #### L [id number] ####Civil Engineering Design Draftsperson: PHILLY FRANCO ([phone])[facility] ([facility])[address] [place] [address] HCO3 (Bld) [Moles/Vol] 27.6 mmol/L High 21.0-25.0 [facility] Comment on above: Performed By: #### L [id number] ####Civil Engineering Design Draftsperson: PHILLY FRANCO ([phone])[facility] ([facility])[address] [place] [address] Hemoglobin (Bld) [Mass/Vol] 9.3 g/dL Normal Screen only [facility] Comment on above: Performed By: #### L [id number] ####Civil Engineering Design Draftsperson: PHILLY FRANCO ([phone])[facility] ([facility])[address] [place] [address] OXYGEN SATURATION (%) IN ARTERIAL BLOOD 85.3 % Low 95.0-100.0 [facility] Comment on above: Performed By: #### L [id number] ####Civil Engineering Design Draftsperson: PHILLY FRANCO ([phone])[facility] ([facility])[address] [place] [address] PCO2 ARTERIAL 39.5 mm Hg Normal >35.0-<45.0 [facility] Comment on above: Performed By: #### L [id number] ####Civil Engineering Design Draftsperson: PHILLY FRANCO ([phone])[facility] ([facility])[address] [place] [address] PH ARTERIAL 7.462 High 7.350-7.450 [facility] Comment on above: Performed By: #### L [id number] ####Civil Engineering Design Draftsperson: PHILLY FRANCO ([id number])[facility] ([facility])[address] [place] [address] PO2 ARTERIAL 51.0 mm Hg Low 80.0-100.0 [facility] Comment on above: Performed By: #### L [id number] ####Civil Engineering Design Draftsperson: PHILLY FRANCO ([id number])[facility] ([facility])[address] [place] [address] SOURCE OF OXYGEN None (Room Air) [facility] Comment on above: Performed By: #### L [id number] ####Civil Engineering Design Draftsperson: PHILLY FRANCO ([id number])[facility] ([facility])[address] [place] [address] CBC W Auto Differential pane l (Bld)Ordered By: Andre Ervin on 12-11-2024 Basophils (Bld) [#/Vol] 0.1 10*3/uL 0.0 - 0.2 10*3/uL [facility] Basophils/100 WBC (Bld) 1.1 % 0.0 - 2.0 % [facility] Eosinophils (Bld) [#/Vol] 0.4 10*3/uL 0.0 - 0.5 10*3/uL [facility] Eosinophils/100 WBC (Bld) 3.2 % 0.0 - 6.0 % [facility] Erythrocyte distribution width (RBC) [Ratio] 18.3 % High 11.5 - 15.0 % [facility] Hematocrit (Bld) [Volume fraction] 23.6 % Low 35.0 - 47.0 % [facility] Hemoglobin (Bld) [Mass/Vol] 7.7 g/dL Low 11.7 - 16.0 g/dL [facility] Immature granulocytes (Bld) [#/Vol] 0 10*3/uL NINF - 0.1 10*3/uL [facility] Immature granulocytes/100 WBC (Bld) 0.3 % 0.0 - 2.0 % [facility] Interpretation and review of laboratory results Abnormal [facility] IPF 2 [facility] Lymphocytes (Bld) [#/Vol] 1.3 10*3/uL 1.0 - 4.3 10*3/uL [facility] Lymphocytes/100 WBC (Bld) 10.5 % Low 15.0 - 45.0 % [facility] MCH (RBC) [Entitic mass] 30 pg 26.0 - 34.0 pg [facility] MCHC (RBC) [Mass/Vol] 32.6 % 30.5 - 36.0 % [facility] MCV (RBC) [Entitic vol] 91.8 fL 77.0 - 99.0 fL [facility] Monocytes (Bld) [#/Vol] 0.5 10*3/uL 0.0 - 0.9 10*3/uL [facility] Monocytes/100 WBC (Bld) 4.4 % Low 5.0 - 13.0 % [facility] Neutrophils (Bld) [#/Vol] 9.8 10*3/uL High 1.8 - 7.5 10*3/uL [facility] Neutrophils/100 WBC (Bld) 80.5 % 38.0 - 82.0 % [facility] Nucleated RBC/100 WBC (Bld) [Ratio] 0 % [facility] Platelet mean volume (Bld) [Entitic vol] 10.6 fL 9.0 - 12.7 fL [facility] Platelets (Bld) [#/Vol] 300 10*3/uL 140 - 440 10*3/uL [facility] RBC (Bld) [#/Vol] 2.57 10*6/uL Low 3.80 - 5.2 0 10*6/uL [facility] WBC (Bld) [#/Vol] 12.1 10*3/uL High 3.6 - 10.7 10*3/uL [facility] CBC WITH AUTO DIFFERENTIALon 12-11-2024 Basophils (Bld) [#/Vol] 0.1 10*3/uL Normal 0.0-0.2 [facility] Comment on above: Performed By: #### L [id number] ####Civil Engineering Design Draftsperson: PHILLY FRANCO ([id number])[facility])[address] [place] [address] Basophils/100 WBC (Bld) 1.1 % Normal 0.0-2.0 [facility] Comment on above: Performed By: #### L [id number] ####Civil Engineering Design Draftsperson: PHILLY FRANCO ([id number])[facility])[address] [place] [address] Eosinophils (Bld) [#/Vol] 0.4 10*3/uL Normal 0.0-0.5 [facility] Comment on above: Performed By: #### L [id number] ####Civil Engineering Design Draftsperson: PHILLY FRANCO ([id number])[facility])[address] [place] [address] Eosinophils/100 WBC (Bld) 3.2 % Normal 0.0-6.0 [facility] Comment on above: Performed By: #### L [id number] ####Civil Engineering Design Draftsperson: PHILLY FRANCO ([id number])[facility])[address] [place] [address] Erythrocyte distribution width (RBC) [Ratio] 18.3 % High 11.5-15.0 [facility] Comment on above: Performed By: #### L [id number] ####Civil Engineering Design Draftsperson: PHILLY FRANCO ([id number])[address] Hematocrit (Bld) [Volume fraction] 23.6 % Low 35.0-47.0 [facility] Comment on above: Performed By: #### L [id number] ####Civil Engineering Design Draftsperson: PHILLY FRANCO ([id number])[facility])[address] [place] [address] Hemoglobin (Bld) [Mass/Vol] 7.7 g/dL Low 11.7-16.0 [facility] Comment on above: Performed By: #### L [id number] ####Civil Engineering Design Draftsperson: PHILLY FRANCO ([id number])[facility])[address] [place] [address] IMMATURE GRANS % 0.3 % Normal 0.0-2.0 [facility] Comment on above: Performed By: #### L [id number] ####Civil Engineering Design Draftsperson: PHILLY FRANCO ([phone])[facility])[address] [place] [address] IMMATURE GRANS ABSOLUTE 0.0 10*3/uL Normal <0.1 [facility] Comment on above: Performed By: #### L [id number] ####Civil Engineering Design Draftsperson: PHILLY FRANCO ([id number])[facility])[address] [place] [address] IPF 2 Normal [facility] Comment on above: Performed By: #### L [id number] ####Civil Engineering Design Draftsperson: PHILLY FRANCO ([id number])[facility])[address] [place] [address] Lymphocytes (Bld) [#/Vol] 1.3 10*3/uL Normal 1.0-4.3 [facility] Comment on above: Performed By: #### L [id number] ####Civil Engineering Design Draftsperson: PHILLY FRANCO ([id number])[facility])[address] [place] [address] Lymphocytes/100 WBC (Bld) 10.5 % Low 15.0-45.0 [facility] Comment on above: Performed By: #### L [id number] ####Civil Engineering Design Draftsperson: PHILLY FRANCO ([id number])[address] MCH (RBC) [Entitic mass] 30.0 pg Normal 26.0-34.0 [facility] Comment on above: Performed By: #### L [id number] ####Civil Engineering Design Draftsperson: PHILLY FRANCO ([phone])[address] MCHC 32.6 % Normal 30.5-36.0 [facility] Comment on above: Performed By: #### L [id number] ####Civil Engineering Design Draftsperson: PHILLY FRANCO ([id number])[facility] ([facility])[address] [place] [address] MCV (RBC) [Entitic vol] 91.8 fL Normal 77.0-99.0 [facility] Comment on above: Performed By: #### L [id number] ####Civil Engineering Design Draftsperson: PHILLY FRANCO ([id number])[facility])[address] [place] [address] Monocytes (Bld) [#/Vol] 0.5 10*3/uL Normal 0.0-0.9 [facility] Comment on above: Performed By: #### L [id number] ####Civil Engineering Design Draftsperson: PHILLY FRANCO ([id number])[facility])[address] [place] [address] Monocytes/100 WBC (Bld) 4.4 % Low 5.0-13.0 [facility] Comment on above: Performed By: #### L [id number] ####Civil Engineering Design Draftsperson: PHILLY FRANCO ([id number])[facility] ([facility])[address] [place] [address] NEUTROPHILS ABSOLUTE 9.8 10*3/uL High 1.8-7.5 [facility] Comment on above: Performed By: #### L [id number] ####Civil Engineering Design Draftsperson: PHILLY FARNCO ([id number])[facility] ([facility])[address] [place] [address] Neutrophils/100 WBC (Bld) 80.5 % Normal 38.0-82.0 [facility] Comment on above: Performed By: #### L [id number] ####Civil Engineering Design Draftsperson: PHILLY FRANCO ([id number])[facility] ([facility])[address] [place] [address] NRBC 0.0 /100 WBCs Normal 0.0-2.0 [facility] Comment on above: Performed By: #### L [id number] ####Civil Engineering Design Draftsperson: PHILLY FRANCO ([id number])[facility])[address] [place] [address] [place] Platelet mean volume (Bld) [Entitic vol] 10.6 fL Normal 9.0-12.7 [facility] Comment on above: Performed By: #### L [id number] ####Civil Engineering Design Draftsperson: PHILLY FRANCO ([id number])[facility] ([facility])[address] [place] [address] Platelets (Bld) [#/Vol] 300 10*3/uL Normal 140-440 [facility] Comment on above: Performed By: #### L [id number] ####Civil Engineering Design Draftsperson: PHILLY FRANCO ([id number])[facility] ([facility])[address] [place] [address] RBC (Bld) [#/Vol] 2.57 10*6/uL Low 3.80-5.20 [facility] Comment on above: Performed By: #### L [id number] ####Civil Engineering Design Draftsperson: PHILLY FRANCO ([phone])[facility] ([facility])[address] [place] [address] WBC (Bld) [#/Vol] 12.1 10*3/uL High 3.6-10.7 [facility] Comment on above: Performed By: #### L [id number] ####Civil Engineering Design Draftsperson: PHILLY FRANCO ([id number])[facility] ([facility])[address] [place] [address] COMPREHENSIVE METABOLIC PANE Fam 12-11-2024 Albumin [Mass/Vol] 1.5 g/dL Low 3.4-4.8 [facility] Comment on above: Performed By: #### L [id number] ####Civil Engineering Design Draftsperson: PHILLY FRANCO ([id number])[facility] ([facility])[address] [place] [address] [place] ALP [Catalytic activity/Vol] 149 U/L Normal 40-150 [facility] Comment on above: Performed By: #### L [id number] ####Civil Engineering Design Draftsperson: PHILLY FRANCO ([id number])[facility] ([facility])[address] [place] [address] ALT [Catalytic activity/Vol] 13 U/L Normal <30 [facility] Comment on above: Performed By: #### L [id number] ####Civil Engineering Design Draftsperson: PHILLY FRANCO ([id number])[facility] Anion gap [Moles/Vol] 11 mmol/L Normal 3-13 [facility] Comment on above: Performed By: #### L [id number] ####Civil Engineering Design Draftsperson: PHILLY FRANCO ([id number])[facility])[address] [place] [address] AST [Catalytic activity/Vol] 41 U/L High <34 [facility] Comment on above: Performed By: #### L [id number] ####Civil Engineering Design Draftsperson: PHILLY FRANCO ([id number])[facility] ([facility])[address] [place] [address] Bilirubin [Mass/Vol] 0.4 mg/dL Normal <1.2 [facility] Comment on above: Performed By: #### L [id number] ####Civil Engineering Design Draftsperson: PHILLY FRANCO ([id number])[facility])[address] [place] [address] Calcium [Mass/Vol] 8.0 mg/dL Low 8.8-10.0 [facility] Comment on above: Performed By: #### L [id number] ####Civil Engineering Design Draftsperson: PHILLY FRANCO ([id number])[facility] ([facility])[address] [place] [address] [place] Chloride [Moles/Vol] 100 mmol/L Normal 98-107 [facility] Comment on above: Performed By: #### L [id number] ####Civil Engineering Design Draftsperson: PHILLY FRANCO ([id number])[facility] ([facility])[address] [place] [address] [place] CO2 [Moles/Vol] 27 mmol/L Normal 23-31 [facility] Comment on above: Performed By: #### L [id number] ####Civil Engineering Design Draftsperson: PHILLY FRANCO ([id number])[facility] ([facility])[address] [place] [address] [place] Creatinine [Mass/Vol] 4.96 mg/dL High 0.57-1.11 [facility] Comment on above: Performed By: #### L [id number] ####Civil Engineering Design Draftsperson: PHILLY FRANCO ([phone])[facility])[address] [place] [address] GLOMERULAR FILTRATION RATE ML/MIN/1.73 SQ M.PREDICTED 8.7 mL/min/1.73m*2 Low >60.0 [facility] Comment on above: Result Comment: Calc ulation based on the Chronic Kidney Disease Epidemiology Collaboration (CKD-EPI) equation refit without adjustment for race Performed By: #### L [id number] ####Civil Engineering Design Draftsperson: PHILLY FRANCO ([id number])[address] Glucose [Mass/Vol] 74 mg/dL Low 82-115 [facility] Comment on above: Performed By: #### L [id number] ####Civil Engineering Design Draftsperson: PHILLY FRANCO ([id number])[address] Potassium [Moles/Vol] 3.7 mmol/L Normal 3.5-5.1 [facility] Comment on above: Result Comment: [facility] potassium values may be up to 0.5 mmol/L lower than serum values. Performed By: #### L [id number] ####Civil Engineering Design Draftsperson: HPILLY FRANCO ([id number])[address] Protein [Mass/Vol] 6.5 g/dL Normal 6.4-8.3 [facility] Comment on above: Performed By: #### L [id number] ####Civil Engineering Design Draftsperson: PHILLY FRANCO ([id number])[address] Sodium [Moles/Vol] 138 mmol/L Normal 136-145 [facility] Comment on above: Performed By: #### L [id number] ####Civil Engineering Design Draftsperson: PHILLY FRANCO ([id number])[place] [address] [place] Urea nitrogen [Mass/Vol] 32 mg/dL High 9-23 [facility] Comment on above: Performed By: #### L [id number] ####Civil Engineering Design Draftsperson: PHILLY FRANCO ([id number])[facility] ([facility])[address] HEAD WO IV CONTRASTon CT HEAD WO IV CONTRAST Normal [facility] CT Head WO contraston 2024 [facility] Comprehensive metabolic 1998 panelon 12-11-2024 Albumin [Mass/Vol] 1.5 g/dL Low 3.4 - 4.8 g/dL [facility] ALP [Catalytic activity/Vol] 149 U/L 40 - 150 U/L [facility] ALT [Catalytic activity/Vol] 13 U/L NINF - 30 U/L [facility] Anion gap [Moles/Vol] 11 mmol/L 3 - 13 mmol/L [facility] AST [Catalytic activity/Vol] 41 U/L High NINF - 34 U/L [facility] Bilirubin [Mass/Vol] 0.4 mg/dL NINF - 1.2 mg/dL [facility] Calcium [Mass/Vol] 8 mg/dL Low 8.8 - 10. 0 mg/dL [facility] Chloride [Moles/Vol] 100 mmol/L 98 - 10 7 mmol/L [facility] CO2 [Moles/Vol] 27 mmol/L 23 - 31 mmol/L [facility] Creatinine [Mass/Vol] 4.96 mg/dL High 0.57 - 1.11 mg/dL [facility] GFR/1.73 sq M.predicted (S/P/Bld) [Vol rate/Area] 8.7 mL/min Low - PINF [facility] Glucose [Mass/Vol] 74 mg/dL Low 82 - 115 mg/dL [facility] Interpretation and review of laboratory results Abnormal [facility] Potassium [Moles/Vol] 3.7 mmol/L 3.5 - 5.1 mmol/L [facility] Protein [Mass/Vol] 6.5 g/dL 6.4 - 8.3 g/dL [facility] Sodium [Moles/Vol] 138 mmol/L 136 - 145 mmol/L [facility] Urea nitrogen [Mass/Vol] 32 mg/dL High 9 - 23 mg/dL [facility] Consulton 12-11-2024 Consult Normal [facility] LACTIC ACID WITH REFLEXon Lactate [Moles/Vol] 0.6 mmol/L Normal 0.5-2.2 [facility] Comment on above: Performed By: #### L [id number] ####Civil Engineering Design Draftsperson: PHILLY FRANCO ([phone])[facility] ([facility] Laboratory - Chemistry and C hemistry - challengeon 12-11-2024 Lactate [Moles/Vol] 0.6 mmol/L 0.5 - 2. 2 mmol/L [facility] Base excess Calc (Bld) [Moles/Vol] 3.6 mmol/L High -3.0 - 3.0 mmol/L [facility] CO2 (Bld) [Partial pressure] 39.5 mm[Hg] - PINF [facility] CO2 [Moles/Vol] 28.8 mmol/L High 23.0 - 27.0 mmol/L [facility] HCO3 (Bld) [Moles/Vol] 27.6 mmol/L High 21.0 - 25.0 mmol/L [facility] Oxygen (Bld) [Partial pressure] 51 mm[Hg] Low [facility] pH (Bld) 7.462 [pH] High 7.350 - 7.450 [facility] Glucose [Mass/Vol] 95 mg/dL 70 - 100 mg/dL [facility] 25-hydroxyvitamin D3 [Mass/Vol] 60 ng/mL High 20 - 50 ng/mL [facility] Laboratory - Hematology and Cell countson 12-11-2024 Hemoglobin (Bld) [Mass/Vol] 9.3 g/dL 7.0 g/dl [facility] No Panel Informationon 12-11 Radiology Study observation (narrative) [facility] Interpretation and review of laboratory results Normal [facility] Amount Of Oxygen 21 [facility] Interpretation and review of laboratory results Abnormal [facility] Source Of Oxygen None (Room Air) [facility] Interpretation and review of laboratory results Normal [facility] Nursing Noteon 12-11-2024 Nursing Note Spoke with MRI regarding pt being unable to answer MRI questions. Messaged director community organization for order for chest xray and KUB. Normal [facility] Nursing Note Normal [facility] Progress Noteon 12-11-2024 Progress Note OCCUPATIONAL THERAPY [facility] Name/MRN: Apoorva Gonzalez ([id number]) Date: 12/11/2024 OT eval on hold pending MRI c-spine imaging. Will evaluate as appropriate. Leonila Rios, OT Normal [facility] Progress Note Normal [facility] Progress Note Normal [facility] Progress Note PHYSICAL THERAPY [facility] Name/MRN: Apoorva Gonzalez ([id number]) Date: 12/11/2024 PT held pending MRI c-spine imaging. Anitha Luna, PT Normal [facility] Progress Note Normal [facility] Progress Note Normal [facility] VITAMIN D DEFICIENCY SCREENI NG (VIT D 25)on 12-11-2024 VIT D 25-OH, TOTAL 60 ng/mL High See comment [facility] Comment on above: Result Comment: GUERO Amanda COMMENTS:Target concentration: 30 - 40 ng/mL; toxicity seen at concentrations >100 ng/mLLess than 20 ng/mL: Indicative of Vit D deficiencyTest performed by [employer], measuring Total Vitamin D, not individual fractions. Performed By: #### L [id number] ####Civil Engineering Design Draftsperson: PHILLY FRANCO ([id number])[facility] ([facility])[address] [place] [address] CBC W Auto Differential pane l (Bld)on 12-10-2024 Basophils (Bld) [#/Vol] 0.1 10*3/uL 0.0 - 0.2 10*3/uL [facility] Basophils/100 WBC (Bld) 1.3 % 0.0 - 2.0 % [facility] Eosinophils (Bld) [#/Vol] 0.3 10*3/uL 0.0 - 0.5 10*3/uL [facility] Eosinophils/100 WBC (Bld) 2.6 % 0.0 - 6.0 % [facility] Erythrocyte distribution width (RBC) [Ratio] 18.6 % High 11.5 - 15.0 % [facility] Hematocrit (Bld) [Volume fraction] 23.2 % Low 35.0 - 47.0 % [facility] Hemoglobin (Bld) [Mass/Vol] 7.3 g/dL Low 11.7 - 16.0 g/dL [facility] Immature granulocytes (Bld) [#/Vol] 0 10*3/uL NINF - 0.1 10*3/uL [facility] Immature granulocytes/100 WBC (Bld) 0.4 % 0.0 - 2.0 % [facility] Interpretation and review of laboratory results Abnormal [facility] Lymphocytes (Bld) [#/Vol] 1.4 10*3/uL 1.0 - 4.3 10*3/uL [facility] Lymphocytes/100 WBC (Bld) 14.1 % Low 15.0 - 45.0 % [facility] MCH (RBC) [Entitic mass] 29.1 pg 26.0 - 34.0 pg [facility] MCHC (RBC) [Mass/Vol] 31.5 % 30.5 - 36.0 % [facility] MCV (RBC) [Entitic vol] 92.4 fL 77.0 - 99.0 fL [facility] Monocytes (Bld) [#/Vol] 0.7 10*3/uL 0.0 - 0.9 10*3/uL [facility] Monocytes/100 WBC (Bld) 7 % 5.0 - 13.0 % [facility] Neutrophils (Bld) [#/Vol] 7.6 10*3/uL High 1.8 - 7.5 10*3/uL [facility] Neutrophils/100 WBC (Bld) 74.6 % 38.0 - 82.0 % [facility] Nucleated RBC/100 WBC (Bld) [Ratio] 0 % [facility] Platelet mean volume (Bld) [Entitic vol] 10.3 fL 9.0 - 12.7 fL [facility] Platelets (Bld) [#/Vol] 293 10*3/uL 140 - 440 10*3/uL [facility] RBC (Bld) [#/Vol] 2.51 10*6/uL Low 3.80 - 5.2 0 10*6/uL [facility] WBC (Bld) [#/Vol] 10.2 10*3/uL 3.6 - 10.7 10*3/uL [facility] CBC WITH AUTO DIFFERENTIALon 12-10-2024 Basophils (Bld) [#/Vol] 0.1 10*3/uL Normal 0.0-0.2 [facility] Comment on above: Performed By: #### L [id number] ####Civil Engineering Design Draftsperson: PHILLY FRANCO ([id number])[facility] ([facility])[address] [place] [address] [place] Basophils/100 WBC (Bld) 1.3 % Normal 0.0-2.0 [facility] Comment on above: Performed By: #### L [id number] ####Civil Engineering Design Draftsperson: PHILLY FRANCO ([phone])[facility] ([facility])[address] [place] [address] Eosinophils (Bld) [#/Vol] 0.3 10*3/uL Normal 0.0-0.5 [facility] Comment on above: Performed By: #### L [id number] ####Civil Engineering Design Draftsperson: PHILLY FRANCO ([phone])[facility] ([facility])[address] [place] [address] [place] Eosinophils/100 WBC (Bld) 2.6 % Normal 0.0-6.0 [facility] Comment on above: Performed By: #### L [id number] ####Civil Engineering Design Draftsperson: PHILLY FRANCO ([id number])[facility])[address] [place] [address] Erythrocyte distribution width (RBC) [Ratio] 18.6 % High 11.5-15.0 [facility] Comment on above: Performed By: #### L [id number] ####Civil Engineering Design Draftsperson: PHILLY FRANCO ([id number])[facility] ([facility])[address] [place] [address] Hematocrit (Bld) [Volume fraction] 23.2 % Low 35.0-47.0 [facility] Comment on above: Performed By: #### L [id number] ####Civil Engineering Design Draftsperson: PHILLY FRANCO ([id number])[facility])[address] [place] [address] [place] Hemoglobin (Bld) [Mass/Vol] 7.3 g/dL Low 11.7-16.0 [facility] Comment on above: Performed By: #### L [id number] ####Civil Engineering Design Draftsperson: PHILLY FRANCO ([id number])[facility])[address] [place] [address] IMMATURE GRANS % 0.4 % Normal 0.0-2.0 [facility] Comment on above: Performed By: #### L [id number] ####Civil Engineering Design Draftsperson: PHILLY FRANCO ([id number])[address] IMMATURE GRANS ABSOLUTE 0.0 10*3/uL Normal <0.1 [facility] Comment on above: Performed By: #### L [id number] ####Civil Engineering Design Draftsperson: PHILLY FRANCO ([id number])[address] Lymphocytes (Bld) [#/Vol] 1.4 10*3/uL Normal 1.0-4.3 [facility] Comment on above: Performed By: #### L [id number] ####Civil Engineering Design Draftsperson: PHILLY FRANCO ([id number])[address] Lymphocytes/100 WBC (Bld) 14.1 % Low 15.0-45.0 [facility] Comment on above: Performed By: #### L [id number] ####Civil Engineering Design Draftsperson: PHILLY FRANCO ([id number])[address] MCH (RBC) [Entitic mass] 29.1 pg Normal 26.0-34.0 [facility] Comment on above: Performed By: #### L [id number] ####Civil Engineering Design Draftsperson: PHILLY FRANCO ([id number])[address] MCHC 31.5 % Normal 30.5-36.0 [facility] Comment on above: Performed By: #### L [id number] ####Civil Engineering Design Draftsperson: PHILLY FRANCO ([phone])[facility] ([facility])[address] [place] [address] MCV (RBC) [Entitic vol] 92.4 fL Normal 77.0-99.0 S [facility] Comment on above: Performed By: #### L [id number] ####Civil Engineering Design Draftsperson: PHILLY FRANCO ([id number])[facility] ([facility])[address] [place] [address] Monocytes (Bld) [#/Vol] 0.7 10*3/uL Normal 0.0-0.9 [facility] Comment on above: Performed By: #### L [id number] ####Civil Engineering Design Draftsperson: PHILLY FRANCO ([id number])[facility] ([facility])[address] [place] [address] Monocytes/100 WBC (Bld) 7.0 % Normal 5.0-13.0 [facility] Comment on above: Performed By: #### L [id number] ####Civil Engineering Design Draftsperson: PHILLY FRANCO ([id number])[facility] ([facility])[address] [place] [address] NEUTROPHILS ABSOLUTE 7.6 10*3/uL High 1.8-7.5 [facility] Comment on above: Performed By: #### L [id number] ####Civil Engineering Design Draftsperson: PHILLY FRANCO ([id number])[facility] ([facility])[address] [place] [address] Neutrophils/100 WBC (Bld) 74.6 % Normal 38.0-82.0 [facility] Comment on above: Performed By: #### L [id number] ####Civil Engineering Design Draftsperson: PHILLY FRANCO ([phone])[facility])[address] [place] [address] NRBC 0.0 /100 WBCs Normal 0.0-2.0 [facility] Comment on above: Performed By: #### L [id number] ####Civil Engineering Design Draftsperson: PHILLY FRANCO ([id number])[facility] ([facility])[address] [place] [address] Platelet mean volume (Bld) [Entitic vol] 10.3 fL Normal 9.0-12.7 [facility] Comment on above: Performed By: #### L [id number] ####Civil Engineering Design Draftsperson: PHILLY FRANCO ([id number])[facility] ([facility])[address] [place] [address] Platelets (Bld) [#/Vol] 293 10*3/uL Normal 140-440 [facility] Comment on above: Performed By: #### L [id number] ####Civil Engineering Design Draftsperson: PHILLY FRANCO ([id number])[facility])[address] [place] [address] RBC (Bld) [#/Vol] 2.51 10*6/uL Low 3.80-5.20 [facility] Comment on above: Performed By: #### L [id number] ####Civil Engineering Design Draftsperson: PHILLY FRANCO ([id number])[facility] ([facility])[address] [place] [address] WBC (Bld) [#/Vol] 10.2 10*3/uL Normal 3.6-10.7 [facility] Comment on above: Performed By: #### L [id number] ####Civil Engineering Design Draftsperson: PHILLY FRANCO ([id number])[facility])[address] [place] [address] COMPREHENSIVE METABOLIC PANE Fam 12-10-2024 Albumin [Mass/Vol] 1.4 g/dL Low 3.4-4.8 [facility] Comment on above: Performed By: #### L AB103, LAB17 ####Civil Engineering Design Draftsperson: PHILLY FRANCO ([id number])[facility])[address] [place] [address] ALP [Catalytic activity/Vol] 125 U/L Normal 40-150 [facility] Comment on above: Performed By: #### L AB103, LAB17 ####Civil Engineering Design Draftsperson: PHILLY FRANCO ([id number])[facility])[address] [place] [address] ALT [Catalytic activity/Vol] 11 U/L Normal <30 [facility] Comment on above: Performed By: #### L AB103, LAB17 ####Civil Engineering Design Draftsperson: PHILLY FRANCO ([id number])[facility] ([facility])[address] [place] [address] Anion gap [Moles/Vol] 10 mmol/L Normal 3-13 [facility] Comment on above: Performed By: #### L AB103, LAB17 ####Civil Engineering Design Draftsperson: PHILLY FRANCO ([id number])[facility] ([facility])[address] [place] [address] AST [Catalytic activity/Vol] 36 U/L High <34 [facility] Comment on above: Performed By: #### Jose [id number], LAB17 ####Civil Engineering Design Draftsperson: PHILLY FRANCO ([phone])[facility] ([facility])[address] [place] [address] Bilirubin [Mass/Vol] 0.4 mg/dL Normal <1.2 [facility] Comment on above: Performed By: #### L AB103, LAB17 ####Civil Engineering Design Draftsperson: PHILLY FRANCO ([phone])[facility])[address] [place] [address] Calcium [Mass/Vol] 7.5 mg/dL Low 8.8-10.0 [facility] Comment on above: Performed By: #### Jose KENDALL, LAB17 ####Civil Engineering Design Draftsperson: PHILLY FRANCO ([id number])[facility])[address] [place] [address] [place] Chloride [Moles/Vol] 99 mmol/L Normal 98-107 [facility] Comment on above: Performed By: #### L AB103, LAB17 ####Civil Engineering Design Draftsperson: PHILLY FRANCO ([id number])[facility])[address] [place] [address] [place] CO2 [Moles/Vol] 26 mmol/L Normal 23-31 [facility] Comment on above: Performed By: #### L AB103, LAB17 ####Civil Engineering Design Draftsperson: PHILLY FRANCO ([id number])[facility] ([facility])[address] [place] [address] Creatinine [Mass/Vol] 4.24 mg/dL High 0.57-1.11 [facility] Comment on above: Performed By: #### L AB103, LAB17 ####Civil Engineering Design Draftsperson: PHILLY FRANCO ([id number])[facility])[address] [place] [address] [place] GLOMERULAR FILTRATION RATE ML/MIN/1.73 SQ M.PREDICTED 10.5 mL/min/1.73m*2 Low >60.0 [facility] Comment on above: Result Comment: Calc ulation based on the Chronic Kidney Disease Epidemiology Collaboration (CKD-EPI) equation refit without adjustment for race Performed By: #### L 103, LAB17 ####Civil Engineering Design Draftsperson: PHILLY FRANCO ([id number])[facility])[address] [place] [address] Glucose [Mass/Vol] 74 mg/dL Low 82-115 [facility] Comment on above: Performed By: #### L 103, LAB17 ####Civil Engineering Design Draftsperson: PHILLY FRANCO ([id number])[facility])[address] [place] [address] Potassium [Moles/Vol] 3.4 mmol/L Low 3.5-5.1 [facility] Comment on above: Result Comment: [facility] potassium values may be up to 0.5 mmol/L lower than serum values. Performed By: #### L AB103, LAB17 ####Civil Engineering Design Draftsperson: PHILLY FRANCO ([id number])[facility] ([facility])[address] [place] [address] [place] Protein [Mass/Vol] 5.7 g/dL Low 6.4-8.3 [facility] Comment on above: Performed By: #### L AB103, LAB17 ####Civil Engineering Design Draftsperson: PHILLY FRANCO ([phone])[facility])[address] [place] [address] [place] Sodium [Moles/Vol] 135 mmol/L Low 136-145 [facility] Comment on above: Performed By: #### L AB103, LAB17 ####Civil Engineering Design Draftsperson: PHILLY FRANCO ([phone])[facility] ([facility])[address] [place] [address] Urea nitrogen [Mass/Vol] 25 mg/dL High 9-23 [facility] Comment on above: Performed By: #### L AB103, LAB17 ####Civil Engineering Design Draftsperson: PHILLY FRANCO ([id number])[facility])[address] [place] [address] Comprehensive metabolic 1998 panelon 12-10-2024 Albumin [Mass/Vol] 1.4 g/dL Low 3.4 - 4.8 g/dL [facility] ALP [Catalytic activity/Vol] 125 U/L 40 - 150 U/L [facility] ALT [Catalytic activity/Vol] 11 U/L NINF - 30 U/L [facility] Anion gap [Moles/Vol] 10 mmol/L 3 - 13 mmol/L [facility] AST [Catalytic activity/Vol] 36 U/L High NINF - 34 U/L [facility] Bilirubin [Mass/Vol] 0.4 mg/dL NINF - 1.2 mg/dL [facility] Calcium [Mass/Vol] 7.5 mg/dL Low 8.8 - 10. 0 mg/dL [facility] Chloride [Moles/Vol] 99 mmol/L 98 - 10 7 mmol/L [facility] CO2 [Moles/Vol] 26 mmol/L 23 - 31 mmol/L [facility] Creatinine [Mass/Vol] 4.24 mg/dL High 0.57 - 1.11 mg/dL [facility] GFR/1.73 sq M.predicted (S/P/Bld) [Vol rate/Area] 10.5 mL/min Low - PINF [facility] Glucose [Mass/Vol] 74 mg/dL Low 82 - 115 mg/dL [facility] Interpretation and review of laboratory results Abnormal [facility] Potassium [Moles/Vol] 3.4 mmol/L Low 3.5 - 5.1 mmol/L [facility] Protein [Mass/Vol] 5.7 g/dL Low 6.4 - 8.3 g/dL [facility] Sodium [Moles/Vol] 135 mmol/L Low 136 - 145 mmol/L [facility] Urea nitrogen [Mass/Vol] 25 mg/dL High 9 - 23 mg/dL [facility] Consulton 12-10-2024 Consult Normal [facility] Laboratory - Chemistry and C hemistry - challengeon 12-10-2024 Magnesium [Mass/Vol] 1.8 mg/dL 1.6 - 2 .6 mg/dL [facility] MAGNESIUMon 12-10-2024 Magnesium [Mass/Vol] 1.8 mg/dL Normal 1.6-2.6 [facility] Comment on above: Result Comment: GUERO R COMMENTS:Higher values can be expected in females during menses. Performed By: #### L AB103, LAB17 ####Civil Engineering Design Draftsperson: PHILLY FRANCO ([phone])[facility] ([address] Magnesium [Mass/Vol]on 12-10 Interpretation and review of laboratory results Normal [facility] Nursing Noteon 12-10-2024 Nursing Note Unable to give IV antibiotic at this time due to occluded IV site. Was unsuccessful to place new IV so I called RR team to come place one. 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 Normal [facility] Progress Noteon 12-10-2024 Progress Note Normal [facility] Progress Note Normal [facility] CBC W Auto Differential pane l (Bld)on 12-09-2024 Basophils (Bld) [#/Vol] 0.1 10*3/uL 0.0 - 0.2 10*3/uL [facility] Basophils/100 WBC (Bld) 1.1 % 0.0 - 2.0 % [facility] Eosinophils (Bld) [#/Vol] 0.2 10*3/uL 0.0 - 0.5 10*3/uL [facility] Eosinophils/100 WBC (Bld) 2.3 % 0.0 - 6.0 % [facility] Erythrocyte distribution width (RBC) [Ratio] 18.7 % High 11.5 - 15.0 % [facility] Hematocrit (Bld) [Volume fraction] 23.5 % Low 35.0 - 47.0 % [facility] Hemoglobin (Bld) [Mass/Vol] 7.6 g/dL Low 11.7 - 16.0 g/dL [facility] Immature granulocytes (Bld) [#/Vol] 0 10*3/uL NINF - 0.1 10*3/uL [facility] Immature granulocytes/100 WBC (Bld) 0.2 % 0.0 - 2.0 % [facility] Interpretation and review of laboratory results Abnormal [facility] Lymphocytes (Bld) [#/Vol] 1.2 10*3/uL 1.0 - 4.3 10*3/uL [facility] Lymphocytes/100 WBC (Bld) 12.8 % Low 15.0 - 45.0 % [facility] MCH (RBC) [Entitic mass] 29.7 pg 26.0 - 34.0 pg [facility] MCHC (RBC) [Mass/Vol] 32.3 % 30.5 - 36.0 % [facility] MCV (RBC) [Entitic vol] 91.8 fL 77.0 - 99.0 fL [facility] Monocytes (Bld) [#/Vol] 0.8 10*3/uL 0.0 - 0.9 10*3/uL [facility] Monocytes/100 WBC (Bld) 7.8 % 5.0 - 13.0 % [facility] Neutrophils (Bld) [#/Vol] 7.4 10*3/uL 1.8 - 7.5 10*3/uL [facility] Neutrophils/100 WBC (Bld) 75.8 % 38.0 - 82.0 % [facility] Nucleated RBC/100 WBC (Bld) [Ratio] 0 % [facility] Platelet mean volume (Bld) [Entitic vol] 10.3 fL 9.0 - 12.7 fL [facility] Platelets (Bld) [#/Vol] 311 10*3/uL 140 - 440 10*3/uL [facility] RBC (Bld) [#/Vol] 2.56 10*6/uL Low 3.80 - 5.2 0 10*6/uL [facility] WBC (Bld) [#/Vol] 9.7 10*3/uL 3.6 - 10.7 10*3/uL [facility] CBC WITH AUTO DIFFERENTIALon 12-09-2024 Basophils (Bld) [#/Vol] 0.1 10*3/uL Normal 0.0-0.2 [facility] Comment on above: Performed By: #### L [id number] ####Civil Engineering Design Draftsperson: PHILLY FRANCO ([id number])[facility])[address] [place] [address] Basophils/100 WBC (Bld) 1.1 % Normal 0.0-2.0 [facility] Comment on above: Performed By: #### L [id number] ####Civil Engineering Design Draftsperson: PHILLY FRANCO ([phone])[facility] ([facility])[address] [place] [address] Eosinophils (Bld) [#/Vol] 0.2 10*3/uL Normal 0.0-0.5 [facility] Comment on above: Performed By: #### L [id number] ####Civil Engineering Design Draftsperson: PHILLY FRANCO ([id number])[facility])[address] [place] [address] Eosinophils/100 WBC (Bld) 2.3 % Normal 0.0-6.0 [facility] Comment on above: Performed By: #### L [id number] ####Civil Engineering Design Draftsperson: PHILLY FRANCO ([id number])[facility])[address] [place] [address] Erythrocyte distribution width (RBC) [Ratio] 18.7 % High 11.5-15.0 [facility] Comment on above: Performed By: #### L [id number] ####Civil Engineering Design Draftsperson: PHILLY FRANCO ([id number])[facility])[address] [place] [address] Hematocrit (Bld) [Volume fraction] 23.5 % Low 35.0-47.0 [facility] Comment on above: Performed By: #### L [id number] ####Civil Engineering Design Draftsperson: PHILLY FRANCO ([phone])[facility])[address] [place] [address] Hemoglobin (Bld) [Mass/Vol] 7.6 g/dL Low 11.7-16.0 [facility] Comment on above: Performed By: #### L [id number] ####Civil Engineering Design Draftsperson: PHILLY FRANCO ([id number])[facility])[address] [place] [address] IMMATURE GRANS % 0.2 % Normal 0.0-2.0 [facility] Comment on above: Performed By: #### L [id number] ####Civil Engineering Design Draftsperson: PHILLY FRANCO ([id number])[facility])[address] [place] [address] IMMATURE GRANS ABSOLUTE 0.0 10*3/uL Normal <0.1 [facility] Comment on above: Performed By: #### L [id number] ####Civil Engineering Design Draftsperson: PHILLY FRANCO ([id number])[address] Lymphocytes (Bld) [#/Vol] 1.2 10*3/uL Normal 1.0-4.3 [facility] Comment on above: Performed By: #### L [id number] ####Civil Engineering Design Draftsperson: PHILLY FRANCO ([id number])[address] Lymphocytes/100 WBC (Bld) 12.8 % Low 15.0-45.0 [facility] Comment on above: Performed By: #### L [id number] ####Civil Engineering Design Draftsperson: PHILLY FRANCO ([id number])[address] MCH (RBC) [Entitic mass] 29.7 pg Normal 26.0-34.0 [facility] Comment on above: Performed By: #### L [id number] ####Civil Engineering Design Draftsperson: PHILLY FRANCO ([phone])[address] MCHC 32.3 % Normal 30.5-36.0 [facility] Comment on above: Performed By: #### L [id number] ####Civil Engineering Design Draftsperson: PHILLY FRANCO ([id number])[facility])[address] [place] [address] MCV (RBC) [Entitic vol] 91.8 fL Normal 77.0-99.0 [facility] Comment on above: Performed By: #### L [id number] ####Civil Engineering Design Draftsperson: PHILLY FRANCO ([id number])[facility] ([facility])[address] [place] [address] Monocytes (Bld) [#/Vol] 0.8 10*3/uL Normal 0.0-0.9 [facility] Comment on above: Performed By: #### L [id number] ####Civil Engineering Design Draftsperson: PHILLY FRANCO ([phone])[facility])[address] [place] [address] Monocytes/100 WBC (Bld) 7.8 % Normal 5.0-13.0 [facility] Comment on above: Performed By: #### L [id number] ####Civil Engineering Design Draftsperson: PHILLY FRANCO ([id number])[facility])[address] [place] [address] NEUTROPHILS ABSOLUTE 7.4 10*3/uL Normal 1.8-7.5 [facility] Comment on above: Performed By: #### L [id number] ####Civil Engineering Design Draftsperson: PHILLY FRANCO ([id number])[facility])[address] [place] [address] Neutrophils/100 WBC (Bld) 75.8 % Normal 38.0-82.0 [facility] Comment on above: Performed By: #### L [id number] ####Civil Engineering Design Draftsperson: PHILLY FRANCO ([id number])[facility] H[facility]PITAL ([facility])[address] [place] [address] NRBC 0.0 /100 WBCs Normal 0.0-2.0 [facility] Comment on above: Performed By: #### L [id number] ####Civil Engineering Design Draftsperson: PHILLY FRANCO ([id number])[facility] ([facility])[address] [place] [address] Platelet mean volume (Bld) [Entitic vol] 10.3 fL Normal 9.0-12.7 [facility] Comment on above: Performed By: #### L [id number] ####Civil Engineering Design Draftsperson: PHILLY FRANCO ([id number])[facility] ([facility])[address] [place] [address] Platelets (Bld) [#/Vol] 311 10*3/uL Normal 140-440 [facility] Comment on above: Performed By: #### L [id number] ####Civil Engineering Design Draftsperson: PHILLY FRANCO ([id number])[facility] ([facility])[address] [place] [address] RBC (Bld) [#/Vol] 2.56 10*6/uL Low 3.80-5.20 [facility] Comment on above: Performed By: #### L [id number] ####Civil Engineering Design Draftsperson: PHILLY FRANCO ([id number])[facility] ([facility])[address] [place] [address] WBC (Bld) [#/Vol] 9.7 10*3/uL Normal 3.6-10.7 [facility] Comment on above: Performed By: #### L [id number] ####Civil Engineering Design Draftsperson: PHILLY FRANCO ([id number])[facility] ([facility])[address] [place] [address] Consulton 12-09-2024 Consult Normal [facility] ED Nursing Noteon 12-09-2024 ED Nursing Note IV re established an d blood reconnected to complete infusion Normal [facility] ED Nursing Note US IV nurse called away to trauma. Will re attempt when able Normal [facility] ED Nursing Note Patient placed in hospital bed for comfort while awaiting inpatient room assignment. While removing old bed from room patient IV tubing got caught and IV was displaced. Blood product placed on hold at this time until new US IV can be established. Normal [facility] Laboratory - Chemistry and C hemistry - challengeon 12-09-2024 Albumin [Mass/Vol] 1.5 g/dL Low 3.4 - 4.8 g/dL [facility] Anion gap [Moles/Vol] 8 mmol/L 3 - 13 mmol/L [facility] Calcium [Mass/Vol] 7.6 mg/dL Low 8.8 - 10. 0 mg/dL [facility] Chloride [Moles/Vol] 96 mmol/L Low 98 - 10 7 mmol/L [facility] CO2 [Moles/Vol] 32 mmol/L High 23 - 31 mmol/L [facility] Creatinine [Mass/Vol] 3.73 mg/dL High 0.57 - 1.11 mg/dL [facility] GFR/1.73 sq M.predicted (S/P/Bld) [Vol rate/Area] 12.2 mL/min Low - PINF [facility] Glucose [Mass/Vol] 79 mg/dL Low 82 - 115 mg/dL [facility] Phosphate [Mass/Vol] 1.7 mg/dL Low 2.3 - 4 .7 mg/dL [facility] Potassium [Moles/Vol] 3.1 mmol/L Low 3.5 - 5.1 mmol/L [facility] Sodium [Moles/Vol] 136 mmol/L 136 - 145 mmol/L [facility] Urea nitrogen [Mass/Vol] 19 mg/dL 9 - 23 mg/dL [facility] No Panel Informationon 12-09 Interpretation and review of laboratory results Abnormal [facility] Blood Expiration Date S [facility] Crossmatch interpretation COMP [facility] Dispense Status Transfused [facility] Product Blood Type 5100 [facility] PRODUCT CODE [id number] [facility] Unit ABO O [facility] Unit Number [id number] [facility] Unit RH Positive [facility] Unit Volume 300 mL [facility] Nursing Noteon 12-09-2024 Nursing Note Pt states she would like to return to [facility] at discharge Normal [facility] Progress Noteon 12-09-2024 Progress Note 2nd attempt for MRI with meds patient still refusing exam Normal [facility] Progress Note Normal [facility] Progress Note Pt attempted MRI but could not complete the exam. Patient refusing to continue exam. Normal [facility] Progress Note OCCUPATIONAL THERAPY [facility] Name/MRN: Apoorva Gonzalez ([id number]) Date: 12/09/2024 OT orders received and chart reviewed. MRI pending c-spine for r/o discitis, will await results prior to initiating OT evalCurtis Fischer, OT Normal [facility] Progress Note Normal [facility] Progress Note Normal [facility] RENAL FUNCTION PANELon 12-09 Albumin [Mass/Vol] 1.5 g/dL Low 3.4-4.8 [facility] Comment on above: Performed By: #### L [id number] ####Civil Engineering Design Draftsperson: PHILLY FRANCO ([id number])[facility] Anion gap [Moles/Vol] 8 mmol/L Normal 3-13 [facility] Comment on above: Performed By: #### L [id number] ####Civil Engineering Design Draftsperson: PHILLY FRANCO ([id number])[facility] ([facility])[address] Calcium [Mass/Vol] 7.6 mg/dL Low 8.8-10.0 [facility] Comment on above: Performed By: #### L [id number] ####Civil Engineering Design Draftsperson: PHILLY FRANCO ([id number])[facility] [place] [address] [place] Chloride [Moles/Vol] 96 mmol/L Low 98-107 [facility] Comment on above: Performed By: #### L [id number] ####Civil Engineering Design Draftsperson: PHILLY FRANCO ([id number])[facility] ([facility])[address] [place] [address] [place] CO2 [Moles/Vol] 32 mmol/L High 23-31 [facility] Comment on above: Performed By: #### L [id number] ####Civil Engineering Design Draftsperson: PHILLY FRANCO ([id number])[facility] ([facility])[address] [place] [address] [place] Creatinine [Mass/Vol] 3.73 mg/dL High 0.57-1.11 [facility] Comment on above: Performed By: #### L [id number] ####Civil Engineering Design Draftsperson: PHILLY FRANCO ([phone])[facility] [place] [address] [place] GLOMERULAR FILTRATION RATE ML/MIN/1.73 SQ M.PREDICTED 12.2 mL/min/1.73m*2 Low >60.0 [facility] Comment on above: Result Comment: Calc ulation based on the Chronic Kidney Disease Epidemiology Collaboration (CKD-EPI) equation refit without adjustment for race Performed By: #### L [id number] ####Civil Engineering Design Draftsperson: PHILLY FRANCO ([id number])[facility])[address] [place] [address] Glucose [Mass/Vol] 79 mg/dL Low 82-115 [facility] Comment on above: Performed By: #### L [id number] ####Civil Engineering Design Draftsperson: PHILLY FRANCO ([id number])[address] Phosphate [Mass/Vol] 1.7 mg/dL Low 2.3-4.7 [facility] Comment on above: Performed By: #### L [id number] ####Civil Engineering Design Draftsperson: PHILLY FRANCO ([phone])[address] Potassium [Moles/Vol] 3.1 mmol/L Low 3.5-5.1 [facility] Comment on above: Result Comment: [facility] potassium values may be up to 0.5 mmol/L lower than serum values. Performed By: #### L [id number] ####Civil Engineering Design Draftsperson: PHILLY FRANCO ([id number])[facility])[address] [place] [address] Sodium [Moles/Vol] 136 mmol/L Normal 136-145 [facility] Comment on above: Performed By: #### L [id number] ####Civil Engineering Design Draftsperson: PHILLY FRANCO ([id number])[facility])[address] [place] [address] Urea nitrogen [Mass/Vol] 19 mg/dL Normal 9-23 [facility] Comment on above: Performed By: #### L [id number] ####Civil Engineering Design Draftsperson: PHILLY FRANCO ([id number])[facility])[address] [place] [address] XR Hip - left 3 Viewson [facility] Radiology Study observation (narrative) [facility] XR Hip - left 3 ViewsOrdered By: Honorio Grande on 12-09-2024 [facility] Work Phone: BLOOD TYPE AND SCREEN GELon 12-08-2024 ABO GROUPING O Normal [facility] Comment on above: Performed By: #### L [id number] ####Civil Engineering Design Draftsperson: PHILLY FRANCO ([id number])[facility] B[facility]OD [facility] ([facility])[address] [place] [address] RH TYPE IN BLOOD Positive Normal [facility] Comment on above: Performed By: #### L [id number] ####Civil Engineering Design Draftsperson: PHILLY FRANCO ([id number])[facility]OD [facility] ([facility])[address] [place] [address] Blood type and Crossmatch pa kojo (Bld)on 12-08-2024 ABO group Nom (Bld) O [facility] Blood group antibody screen GEL Ql Negative [facility] D Ag Ql (RBC) Positive [facility] CBC W Auto Differential pane l (Bld)Ordered By: Rimma Galloway on 12-08-2024 Basophils (Bld) [#/Vol] 0.1 10*3/uL 0.0 - 0.2 10*3/uL [facility] Basophils/100 WBC (Bld) 0.8 % 0.0 - 2.0 % [facility] Eosinophils (Bld) [#/Vol] 0.1 10*3/uL 0.0 - 0.5 10*3/uL [facility] Eosinophils/100 WBC (Bld) 0.9 % 0.0 - 6.0 % [facility] Erythrocyte distribution width (RBC) [Ratio] 18.4 % High 11.5 - 15.0 % [facility] Hematocrit (Bld) [Volume fraction] 20.9 % Low 35.0 - 47.0 % [facility] Hemoglobin (Bld) [Mass/Vol] 6.9 g/dL Critically low 11.7 - 16.0 g/dL [facility] Immature granulocytes (Bld) [#/Vol] 0.1 10*3/uL High NINF - 0.1 10*3/uL [facility] Immature granulocytes/100 WBC (Bld) 0.4 % 0.0 - 2.0 % [facility] Interpretation and review of laboratory results Abnormal [facility] Lymphocytes (Bld) [#/Vol] 0.8 10*3/uL Low 1.0 - 4.3 10*3/uL [facility] Lymphocytes/100 WBC (Bld) 7.4 % Low 15.0 - 45.0 % [facility] MCH (RBC) [Entitic mass] 30.5 pg 26.0 - 34.0 pg [facility] MCHC (RBC) [Mass/Vol] 33 % 30.5 - 36.0 % [facility] MCV (RBC) [Entitic vol] 92.5 fL 77.0 - 99.0 fL [facility] Monocytes (Bld) [#/Vol] 0.6 10*3/uL 0.0 - 0.9 10*3/uL [facility] Monocytes/100 WBC (Bld) 4.9 % Low 5.0 - 13.0 % [facility] Neutrophils (Bld) [#/Vol] 9.6 10*3/uL High 1.8 - 7.5 10*3/uL [facility] Neutrophils/100 WBC (Bld) 85.6 % High 38.0 - 82.0 % [facility] Nucleated RBC/100 WBC (Bld) [Ratio] 0 % [facility] Platelet mean volume (Bld) [Entitic vol] 10.1 fL 9.0 - 12.7 fL [facility] Platelets (Bld) [#/Vol] 359 10*3/uL 140 - 440 10*3/uL [facility] RBC (Bld) [#/Vol] 2.26 10*6/uL Low 3.80 - 5.2 0 10*6/uL [facility] WBC (Bld) [#/Vol] 11.2 10*3/uL High 3.6 - 10.7 10*3/uL [facility] CBC WITH AUTO DIFFERENTIALon 12-08-2024 Basophils (Bld) [#/Vol] 0.1 10*3/uL Normal 0.0-0.2 [facility] System [facility] Comment on above: Performed By: #### L [id number] ####Civil Engineering Design Draftsperson: PHILLY FRANCO ([id number])[facility] ([facility])[address] [place] [address] Basophils/100 WBC (Bld) 0.8 % Normal 0.0-2.0 S [facility] Comment on above: Performed By: #### L [id number] ####Civil Engineering Design Draftsperson: PHILLY FRANCO ([id number])[facility])[address] [place] [address] Eosinophils (Bld) [#/Vol] 0.1 10*3/uL Normal 0.0-0.5 [facility] Comment on above: Performed By: #### L [id number] ####Civil Engineering Design Draftsperson: PHILLY FRANCO ([id number])[facility])[address] [place] [address] Eosinophils/100 WBC (Bld) 0.9 % Normal 0.0-6.0 [facility] Comment on above: Performed By: #### L [id number] ####Civil Engineering Design Draftsperson: PHILLY FRANCO ([id number])[facility] ([facility])[address] [place] [address] Erythrocyte distribution width (RBC) [Ratio] 18.4 % High 11.5-15.0 [facility] Comment on above: Performed By: #### L [id number] ####Civil Engineering Design Draftsperson: PHILLY FRANCO ([id number])[address] Hematocrit (Bld) [Volume fraction] 20.9 % Low 35.0-47.0 [facility] Comment on above: Performed By: #### L [id number] ####Civil Engineering Design Draftsperson: PHILLY FRANCO ([id number])[facility])[address] [place] [address] Hemoglobin (Bld) [Mass/Vol] 6.9 g/dL Critically low 11.7-16.0 [facility] Comment on above: Performed By: #### L [id number] ####Civil Engineering Design Draftsperson: PHILLY FRANCO ([id number])[facility])[address] [place] [address] IMMATURE GRANS % 0.4 % Normal 0.0-2.0 [facility] Comment on above: Performed By: #### L [id number] ####Civil Engineering Design Draftsperson: PHILLY FRANCO ([id number])[facility])[address] [place] [address] IMMATURE GRANS ABSOLUTE 0.1 10*3/uL High <0.1 [facility] Comment on above: Performed By: #### L [id number] ####Civil Engineering Design Draftsperson: PHILLY FRANCO ([id number])[facility])[address] [place] [address] Lymphocytes (Bld) [#/Vol] 0.8 10*3/uL Low 1.0-4.3 [facility] Comment on above: Performed By: #### L [id number] ####Civil Engineering Design Draftsperson: PHILLY FRANCO ([id number])[facility])[address] [place] [address] Lymphocytes/100 WBC (Bld) 7.4 % Low 15.0-45.0 [facility] Comment on above: Performed By: #### L [id number] ####Civil Engineering Design Draftsperson: PHILLY FRANCO ([id number])[facility])[address] [place] [address] MCH (RBC) [Entitic mass] 30.5 pg Normal 26.0-34.0 [facility] Comment on above: Performed By: #### L [id number] ####Civil Engineering Design Draftsperson: PHILLY FRANCO ([id number])[facility])[address] [place] [address] MCHC 33.0 % Normal 30.5-36.0 [facility] Comment on above: Performed By: #### L [id number] ####Civil Engineering Design Draftsperson: PHILLY FRANCO ([id number])[facility])[address] [place] [address] MCV (RBC) [Entitic vol] 92.5 fL Normal 77.0-99.0 S [facility] Comment on above: Performed By: #### L [id number] ####Civil Engineering Design Draftsperson: PHILLY FRANCO ([id number])[facility] ([facility])[address] [place] [address] Monocytes (Bld) [#/Vol] 0.6 10*3/uL Normal 0.0-0.9 [facility] Comment on above: Performed By: #### L [id number] ####Civil Engineering Design Draftsperson: PHILLY FRANCO ([id number])[facility] ([facility])[address] [place] [address] Monocytes/100 WBC (Bld) 4.9 % Low 5.0-13.0 S [facility] Comment on above: Performed By: #### L [id number] ####Civil Engineering Design Draftsperson: PHILLY FRANCO ([id number])[facility])[address] [place] [address] NEUTROPHILS ABSOLUTE 9.6 10*3/uL High 1.8-7.5 [facility] Comment on above: Performed By: #### L [id number] ####Civil Engineering Design Draftsperson: PHILLY FRANCO ([id number])[facility])[address] [place] [address] Neutrophils/100 WBC (Bld) 85.6 % High 38.0-82.0 [facility] Comment on above: Performed By: #### L [id number] ####Civil Engineering Design Draftsperson: PHILLY FRANCO ([id number])[facility])[address] [place] [address] NRBC 0.0 /100 WBCs Normal 0.0-2.0 [facility] Comment on above: Performed By: #### L [id number] ####Civil Engineering Design Draftsperson: PHILLY FRANCO ([id number])[facility])[address] [place] [address] Platelet mean volume (Bld) [Entitic vol] 10.1 fL Normal 9.0-12.7 [facility] Comment on above: Performed By: #### L [id number] ####Civil Engineering Design Draftsperson: PHILLY FRANCO ([id number])[facility] ([facility])[address] [place] [address] Platelets (Bld) [#/Vol] 359 10*3/uL Normal 140-440 [facility] Comment on above: Performed By: #### L [id number] ####Civil Engineering Design Draftsperson: PHILLY FRANCO ([id number])[facility] ([facility])[address] [place] [address] RBC (Bld) [#/Vol] 2.26 10*6/uL Low 3.80-5.20 [facility] Comment on above: Performed By: #### L [id number] ####Civil Engineering Design Draftsperson: PHILLY FRANCO ([id number])[facility] ([facility])[address] [place] [address] WBC (Bld) [#/Vol] 11.2 10*3/uL High 3.6-10.7 [facility] Comment on above: Performed By: #### L [id number] ####Civil Engineering Design Draftsperson: HPILLY FRANCO ([id number])[facility] ([facility])[address] [place] [address] COMPREHENSIVE METABOLIC PANE Fam 12-08-2024 Albumin [Mass/Vol] 1.6 g/dL Low 3.4-4.8 [facility] Comment on above: Performed By: #### L [id number] ####Civil Engineering Design Draftsperson: PHILLY FRANCO ([id number])[facility] ([facility])[address] [place] [address] ALP [Catalytic activity/Vol] 166 U/L High 40-150 [facility] Comment on above: Performed By: #### L [id number] ####Civil Engineering Design Draftsperson: PHILLY FRANCO ([id number])[facility])[address] [place] [address] ALT [Catalytic activity/Vol] 14 U/L Normal <30 [facility] Comment on above: Performed By: #### L [id number] ####Civil Engineering Design Draftsperson: PHILLY FRANCO ([id number])[facility])[address] Anion gap [Moles/Vol] 11 mmol/L Normal 3-13 [facility] Comment on above: Performed By: #### L [id number] ####Civil Engineering Design Draftsperson: PHILLY FRANCO ([id number])[facility] ([facility])[address] [place] [address] AST [Catalytic activity/Vol] 46 U/L High <34 [facility] Comment on above: Performed By: #### L [id number] ####Civil Engineering Design Draftsperson: PHILLY FRANCO ([id number])[facility] ([facility])[address] [place] [address] Bilirubin [Mass/Vol] 0.4 mg/dL Normal <1.2 [facility] Comment on above: Performed By: #### L [id number] ####Civil Engineering Design Draftsperson: PHILLY FRANCO ([id number])[facility] ([facility])[address] [place] [address] Calcium [Mass/Vol] 8.1 mg/dL Low 8.8-10.0 [facility] Comment on above: Performed By: #### L [id number] ####Civil Engineering Design Draftsperson: PHILLY FRANCO ([id number])[facility] ([facility])[address] [place] [address] Chloride [Moles/Vol] 94 mmol/L Low 98-107 [facility] Comment on above: Performed By: #### L [id number] ####Civil Engineering Design Draftsperson: PHILLY FRANCO ([id number])[facility])[address] [place] [address] CO2 [Moles/Vol] 30 mmol/L Normal 23-31 [facility] Comment on above: Performed By: #### L [id number] ####Civil Engineering Design Draftsperson: PHILLY FRANCO ([phone])[facility])[address] [place] [address] Creatinine [Mass/Vol] 3.05 mg/dL High 0.57-1.11 [facility] Comment on above: Performed By: #### L [id number] ####Civil Engineering Design Draftsperson: PHILLY FRANCO ([id number])[facility])[address] [place] [address] [place] GLOMERULAR FILTRATION RATE ML/MIN/1.73 SQ M.PREDICTED 15.5 mL/min/1.73m*2 Low >60.0 [facility] Comment on above: Result Comment: Calc ulation based on the Chronic Kidney Disease Epidemiology Collaboration (CKD-EPI) equation refit without adjustment for race Performed By: #### L [id number] ####Civil Engineering Design Draftsperson: PHILLY FRANCO ([id number])[facility])[address] [place] [address] Glucose [Mass/Vol] 101 mg/dL Normal 82-115 [facility] Comment on above: Performed By: #### L [id number] ####Civil Engineering Design Draftsperson: PHILLY FRANCO ([id number])[facility])[address] [place] [address] Potassium [Moles/Vol] 2.6 mmol/L Critically low 3.5-5.1 [facility] Comment on above: Result Comment: Plas ma potassium values may be up to 0.5 mmol/L lower than serum values. Performed By: #### L AB17 ####Civil Engineering Design Draftsperson: PHILLY FRANCO ([id number])[facility])[address] [place] [address] Protein [Mass/Vol] 6.4 g/dL Normal 6.4-8.3 [facility] Comment on above: Performed By: #### L [id number] ####Civil Engineering Design Draftsperson: PHILLY FRANCO ([id number])[facility])[address] [place] [address] [place] Sodium [Moles/Vol] 135 mmol/L Low 136-145 [facility] Comment on above: Performed By: #### L [id number] ####Civil Engineering Design Draftsperson: PHILLY FRANCO ([id number])[facility])[address] [place] [address] [place] Urea nitrogen [Mass/Vol] 17 mg/dL Normal 9-23 [facility] Comment on above: Performed By: #### L [id number] ####Civil Engineering Design Draftsperson: PHILLY [id number])[facility] ([facility])[address] [place] [address] CT CERVICAL SPINE WO IV CONT RASTon 12-08-2024 CT CERVICAL SPINE WO IV CONTRAST Normal [facility] CT HEAD WO IV CONTRASTon CT HEAD WO IV CONTRAST Normal [facility] Comprehensive metabolic 1998 panelOrdered By: Brenda Means on 12-08-2024 Albumin [Mass/Vol] 1.6 g/dL Low 3.4 - 4.8 g/dL [facility] ALP [Catalytic activity/Vol] 166 U/L High 40 - 150 U/L [facility] ALT [Catalytic activity/Vol] 14 U/L NINF - 30 U/L [facility] Anion gap [Moles/Vol] 11 mmol/L 3 - 13 mmol/L [facility] AST [Catalytic activity/Vol] 46 U/L High NINF - 34 U/L [facility] Bilirubin [Mass/Vol] 0.4 mg/dL NINF - 1.2 mg/dL [facility] Calcium [Mass/Vol] 8.1 mg/dL Low 8.8 - 10. 0 mg/dL [facility] Chloride [Moles/Vol] 94 mmol/L Low 98 - 10 7 mmol/L [facility] CO2 [Moles/Vol] 30 mmol/L 23 - 31 mmol/L [facility] Creatinine [Mass/Vol] 3.05 mg/dL High 0.57 - 1.11 mg/dL [facility] GFR/1.73 sq M.predicted (S/P/Bld) [Vol rate/Area] 15.5 mL/min Low - PINF [facility] Glucose [Mass/Vol] 101 mg/dL 82 - 115 mg/dL [facility] Interpretation and review of laboratory results Abnormal [facility] Potassium [Moles/Vol] 2.6 mmol/L Critically low 3.5 - 5.1 mmol/L [facility] Protein [Mass/Vol] 6.4 g/dL 6.4 - 8.3 g/dL [facility] Sodium [Moles/Vol] 135 mmol/L Low 136 - 145 mmol/L [facility] Urea nitrogen [Mass/Vol] 17 mg/dL 9 - 23 mg/dL [facility] ED Nursing Noteon 12-08-2024 ED Nursing Note MRI screening completed at this time. Normal [facility] ED Provider Noteon ED Provider Note Normal [facility] No Panel Informationon 12-08 [facility] RAD[facility] Radiology Study observation (narrative) [facility] No Panel InformationOrdered By: Norman [facility]in [facility] 12-[facility]24 [facility] No Panel InformationOrdered By: Mason Duran on 12-06-2024 Left antecubital vein depth 2.[address] [employer] [employer] [facility] Work Phone: Left Antecutibal Vein Diam 1.1 mm [facility] Work Phone: [phone] Left Axillary Artery Diameter 0.77 cm [facility] Work Phone: Left Axillary Vein Diameter 5.3 [facility] Work Phone: [phone] Left Brachial A dist PSV 54.3 cm/s [facility] Work Phone: Left brachial artery distal diameter 0.[address] [employer] [employer] [facility] Work Phone: [phone] Left Brachial Vein 1 Diam 1.9 mm [facility] Work Phone: [phone] Left Cephalic Vein Lower Arm Dist Diam 0.8 mm [facility] Work Phone: Left Cephalic Vein Lower Arm Mid Diam 1.1 mm [facility] Work Phone: Left Cephalic Vein Lower Arm Prox Diam 0.8 mm [facility] Work Phone: [phone] Left Cephalic Vein Upper Arm Dist Diam 1.2 mm [facility] Work Phone: Left forearm cephalic vein distal depth 1.93 cm [facility] Work Phone: Left forearm cephalic vein mid depth 2.11 cm [facility] Work Phone: Left forearm cephalic vein proximal depth 1.93 cm [facility] Work Phone: Left Mid Ax A PSV 52.2 cm/s [facility] Work Phone: Left Radial A dist PSV 76 cm/s [facility] Work Phone: Left Radial A mid [...] brachial artery proximal diameter 0.55 cm [facility] Work Phone: Right Brachial Vein 1 Diam 3.2 mm [facility] Work Phone: Right Brachial Vein 2 Diam 2.6 mm [facility] Work Phone: Right Cephalic Vein Upper Arm Dist Diam 0.9 mm [facility] Work Phone: Right Cephalic Vein Upper Arm Mid Diam 0.5 mm [facility] Work Phone: [phone] Right Radial A dist PSV 76 cm/s [facility] Work Phone: [phone] Right Radial A mid PSV 82.1 cm/s [facility] Work Phone: Right Radial A prox PSV 88.3 cm/s [facility] Work Phone: [phone] Right radial artery distal diameter 0.27 cm [facility] Work Phone: Right radial artery mid diameter 0.23 cm [facility] Work Phone: [phone] Right radial artery proximal diameter 0.23 cm [facility] Work Phone: [phone] Right Subclavian Vein Diameter 7.6 mm [facility] Phone: Right upper cephalic vein distal depth 2.2 cm [facility] Phone: Right upper cephalic vein mid depth 2.15 cm [facility] Phone: No Panel Informationon 12-06 Chronic superficial [...] CPACS Progress Noteon 12-06-2024 Progress Note Normal [facility] CBC-Complete Blood Cnt No Di ffon 12-05-2024 Erythrocyte distribution width (RBC) [Ratio] 18.8 % High 11.6-14.6 [facility] Comment on above: Order Comment: 408.2 Performed By: #### L 100.0500, L100.4500 #### [facility] [address] [place], [address] Hematocrit (Bld) [Volume fraction] 22.4 % Low 37-47 [facility] Comment on above: Order Comment: 408.2 Performed By: #### L 100.0500, L100.4500 #### [facility] [address] [place], [address] Hemoglobin (Bld) [Mass/Vol] 7.2 g/dL Low 12.0-15.0 [facility] Comment on above: Order Comment: 408.2 Performed By: #### L 100.0500, L100.4500 #### [facility] [address] [place], [address] MCH (RBC) [Entitic mass] 30.4 pg Normal 27.0-32.0 [facility] Comment on above: Order Comment: 408.2 Performed By: #### L 100.0500, L100.4500 #### [facility] [address] [place], [address] MCHC (RBC) [Mass/Vol] 32.1 g/dL Normal 32-36 [facility] Comment on above: Order Comment: 408.2 Performed By: #### L 100.0500, L100.4500 #### [facility] [address] [place], [address] MCV (RBC) [Entitic vol] 94.5 fL Normal 81-99 [facility] Comment on above: Order Comment: 408.2 Performed By: #### L 100.0500, L100.4500 #### [facility] [address], [address] Platelet mean volume (Bld) [Entitic vol] 10.7 fL Normal 6.2-12.0 [facility] Comment on above: Order Comment: 408.2 Performed By: #### L 100.0500, L100.4500 #### [facility] [address] [place], [address] Platelets (Bld) [#/Vol] 395 10*3/uL Normal 150-450 [facility] Comment on above: Order Comment: 408.2 Performed By: #### L 100.0500, L100.4500 #### [facility] [address] [place], [address] RBC (Bld) [#/Vol] 2.37 10*6/uL Low 4.2-5.4 [facility] Comment on above: Order Comment: 408.2 Performed By: #### L 100.0500, L100.4500 #### [facility] [address] [place], [address] RDW SD 65.1 fl High 35.1-43.9 [facility] Comment on above: Order Comment: 408.2 Performed By: #### L 100.0500, L100.4500 #### [facility] [address] [place], [address] WBC (Bld) [#/Vol] 8.5 10*3/uL Normal 4.4-11.0 [facility] Comment on above: Order Comment: 408.2 Performed By: #### L 100.0500, L100.4500 #### [facility] [address] [place], [address] Differential Commenton 12-05 SMEAR COMMENT COMMENT Normal [facility] Comment on above: Order Comment: 408.2 Result Comment: 2+ A NISO. Performed By: #### L 100.0500, L100.4500 #### [facility] [address] [place], [address] CBC-Complete Blood Cnt No Di ffon 12-01-2024 HCT Normal 37-47 [facility] Comment on above: Order Comment: 407-2 Result Comment: This specimen has been REJECTED due to Laboratory criteria: Clotted. TIANNA RUIZ has been notified of need of recollection. 12/01/24 0856 Aaliyah Huber Performed By: #### L 400.0001, L100.0500, M100.2200, L500.4050 #### [facility] [address] [place], [address] HGB Normal 12.0-15.0 [facility] Comment on above: Order Comment: 407-2 Result Comment: This specimen has been REJECTED due to Laboratory criteria: Clotted. TIANNA RUIZ has been notified of need of recollection. 12/01/24 0856 Aaliyah Huber Performed By: #### L 400.0001, L100.0500, M100.2200, L500.4050 #### [facility] [address] [place], [address] MCH Normal 27.0-32.0 [facility] Comment on above: Order Comment: 407-2 Result Comment: This specimen has been REJECTED due to Laboratory criteria: Clotted. TIANNA RUIZ has been notified of need of recollection. 12/01/24 0856 Aaliyah Huber Performed By: #### L 400.0001, L100.0500, M100.2200, L500.4050 #### [facility] [address] [place], [address] MCHC Normal 32-36 [facility] Comment on above: Order Comment: 407-2 Result Comment: This specimen has been REJECTED due to Laboratory criteria: Clotted. TIANNA RUIZ has been notified of need of recollection. 12/01/24 0856 Aaliyah Huber Performed By: #### L 400.0001, L100.0500, M100.2200, L500.4050 #### [facility] [address] [place], [address] MCV Normal 81-99 [facility] Comment on above: Order Comment: 407-2 Result Comment: This specimen has been REJECTED due to Laboratory criteria: Clotted. TIANNA RUIZ has been notified of need of recollection. 12/01/24 0856 Aaliyah Huber Performed By: #### L 400.0001, L100.0500, M100.2200, L500.4050 #### [facility] [address] [place], [address] PLT Normal 150-450 [facility] Comment on above: Order Comment: 407-2 Result Comment: This specimen has been REJECTED due to Laboratory criteria: Clotted. TIANNA RUIZ has been notified of need of recollection. 12/01/24 0856 Aaliyah Huber Performed By: #### L 400.0001, L100.0500, M100.2200, L500.4050 #### [facility] [address] [place], [address] RBC Normal 4.2-5.4 [facility] Comment on above: Order Comment: 407-2 Result Comment: This specimen has been REJECTED due to Laboratory criteria: Clotted. TIANNA RUIZ has been notified of need of recollection. 12/01/24 0856 Aaliyah Huber Performed By: #### L 400.0001, L100.0500, M100.2200, L500.4050 #### [facility] [address] [place], [address] RDW CV Normal 11.6-14.6 [facility] Comment on above: Order Comment: 407-2 Result Comment: This specimen has been REJECTED due to Laboratory criteria: Clotted. TIANNA RUIZ has been notified of need of recollection. 12/01/24 0856 Aaliyah Huber Performed By: #### L 400.0001, L100.0500, M100.2200, L500.4050 #### [facility] [address] [place], [address] RDW SD Normal 35.1-43.9 [facility] Comment on above: Order Comment: 407-2 Result Comment: This specimen has been REJECTED due to Laboratory criteria: Clotted. TIANNA RUIZ has been notified of need of recollection. 12/01/24 0856 Aaliyah Huber Performed By: #### L 400.0001, L100.0500, M100.2200, L500.4050 #### [facility] [address] [place], [address] WBC Normal 4.4-11.0 [facility] Comment on above: Order Comment: 407-2 Result Comment: This specimen has been REJECTED due to Laboratory criteria: Clotted. TIANNA RUIZ has been notified of need of recollection. 12/01/24 0856 Aaliyah Huber Performed By: #### L 400.0001, L100.0500, M100.2200, L500.4050 #### [facility] [address] [place], [address] CBC-Complete Blood Cnt No Di ffon 11-30-2024 Erythrocyte distribution width (RBC) [Ratio] 18.5 % High 11.6-14.6 [facility] Comment on above: Order Comment: 408.2 Performed By: #### L 100.0500 #### [facility] [address] [place], [address] Hematocrit (Bld) [Volume fraction] 21.7 % Low 37-47 [facility] Comment on above: Order Comment: 408.2 Performed By: #### L 100.0500 #### [facility] [address] [place], [address] Hemoglobin (Bld) [Mass/Vol] 6.9 g/dL Low 12.0-15.0 [facility] Comment on above: Order Comment: 408.2 Performed By: #### L 100.0500 #### [facility] [address] [place], [address] MCH (RBC) [Entitic mass] 29.9 pg Normal 27.0-32.0 [facility] Comment on above: Order Comment: 408.2 Performed By: #### L 100.0500 #### [facility] [address] [place], [address] MCHC (RBC) [Mass/Vol] 31.8 g/dL Low 32-36 [facility] Comment on above: Order Comment: 408.2 Performed By: #### L 100.0500 #### [facility] [address] [place], [address] MCV (RBC) [Entitic vol] 93.9 fL Normal 81-99 [facility] Comment on above: Order Comment: 408.2 Performed By: #### L 100.0500 #### [facility] [address] [place], [address] Platelet mean volume (Bld) [Entitic vol] 10.5 fL Normal 6.2-12.0 [facility] Comment on above: Order Comment: 408.2 Performed By: #### L 100.0500 #### [facility] [address] [place], [address] Platelets (Bld) [#/Vol] 342 10*3/uL Normal 150-450 [facility] Comment on above: Order Comment: 408.2 Performed By: #### L 100.0500 #### [facility] [address] [place], [address] RBC (Bld) [#/Vol] 2.31 10*6/uL Low 4.2-5.4 [facility] Comment on above: Order Comment: 408.2 Performed By: #### L 100.0500 #### [facility] [address] [place], [address] RDW SD 63.3 fl High 35.1-43.9 [facility] Comment on above: Order Comment: 408.2 Performed By: #### L 100.0500 #### [facility] [address] [place], [address] WBC (Bld) [#/Vol] 7.0 10*3/uL Normal 4.4-11.0 [facility] Comment on above: Order Comment: 408.2 Performed By: #### L 100.0500 #### [facility] [address] [place], [address] Progress Noteon 11-27-2024 Progress Note Normal [facility] KEPPRA (LEVETIRACETAM)on KEPPRA 18.7 ug/mL Normal 10.0-40.0 [facility] Comment on above: Order Comment: 408-2 Result Comment: Perf ormed at: [facility] - [facility] [id number] Material Cutter: Scott Little MD, Phone: [phone] Performed By: #### L 3310.0000 #### [facility] [place], [address] BASIC METABOLIC PANELon 08-2 0 Anion gap [Moles/Vol] 13 mmol/L Normal 3-13 [facility] Comment on above: Performed By: #### L AB15 ####[employer] Design Draftsperson: DEANN CURRAN ([id number])[facility] ([facility])[address] Calcium [Mass/Vol] 8.4 mg/dL Low 8.8-10.0 [facility] Comment on above: Performed By: #### L AB15 ####[employer] Engineering Design Draftsperson: DEANN CURRAN ([id number])[facility] ([facility])[address] Chloride [Moles/Vol] 94 mmol/L Low 98-107 [facility] Comment on above: Performed By: #### L AB15 ####[employer] Engineering Design Draftsperson: DEANN CURRAN ([id number])[facility] [place] ([facility])[address] CO2 [Moles/Vol] 27 mmol/L Normal 23-31 [facility] Comment on above: Performed By: #### L AB15 ####Civil Engineering Design Draftsperson: DEANN CURRAN ([id number])[facility] ([facility])[address] Creatinine [Mass/Vol] 2.28 mg/dL High 0.57-1.11 [facility] Comment on above: Performed By: #### L AB15 ####[employer] Design Draftsperson: DEANN CURRAN ([id number])[facility] ([facility])[address] GLOMERULAR FILTRATION RATE ML/MIN/1.73 SQ M.PREDICTED 22.0 mL/min/1.73m*2 Low >60.0 [facility] Comment on above: Result Comment: Calc ulation based on the Chronic Kidney Disease Epidemiology Collaboration (CKD-EPI) equation refit without adjustment for race Performed By: #### L AB15 ####Civil Engineering Design Draftsperson: DEANN CURRAN ([id number])[facility] (HLAB)[address] Glucose [Mass/Vol] 81 mg/dL Low 82-115 [facility] Comment on above: Performed By: #### L AB15 ####Civil [employer] Design Draftsperson: DEANN CURRAN ([id number])[facility] ([facility])[address] Potassium [Moles/Vol] 3.1 mmol/L Low 3.5-5.1 [facility] Comment on above: Result Comment: [facility] potassium values may be up to 0.5 mmol/L lower than serum values. Performed By: #### L AB15 ####Civil Engineering Design Draftsperson: DEANN CURRAN ([id number])[facility] ([facility])[address] Sodium [Moles/Vol] 134 mmol/L Low 136-145 [facility] Comment on above: Performed By: #### L AB15 ####Civil Engineering Design Draftsperson: DEANN CURRAN ([id number])[facility] ([facility])[address] Urea nitrogen [Mass/Vol] 10 mg/dL Normal - [facility] Comment on above: Performed By: #### L AB15 ####[employer] Design Draftsperson: DEANN CURRAN ([id number])[facility] (HL[facility])[address] BLOOD TYPE AND SCREEN GELon 11-22-2024 ABO GROUPING O [facility] Comment on above: Performed By: #### L [id number] ####Civil Engineering Design Draftsperson: DEANN CURRAN ([id number])[facility] ([facility])[address] RH TYPE IN BLOOD Positive Normal [facility] Comment on above: Performed By: #### L [id number] ####[employer] Design Draftsperson: DEANN CURRAN ([id number])[facility] ([facility])[address] Basic metabolic 1998 panelon 11-22-2024 Anion gap [Moles/Vol] 13 mmol/L 3 - 13 mmol/L [facility] Calcium [Mass/Vol] 8.4 mg/dL Low 8.8 - 10. 0 mg/dL [facility] Chloride [Moles/Vol] 94 mmol/L Low 98 - 10 7 mmol/L [facility] CO2 [Moles/Vol] 27 mmol/L 23 - 31 mmol/L [facility] Creatinine [Mass/Vol] 2.28 mg/dL High 0.57 - 1.11 mg/dL [facility] GFR/1.73 sq M.predicted (S/P/Bld) [Vol rate/Area] 22 mL/min Low - PINF [facility] Comment on above: Calculation based on the Chronic Kidney Disease Epidemiology Collaboration (CKD-EPI) equation refit without adjustment for race Glucose [Mass/Vol] 81 mg/dL Low 82 - 115 mg/dL [facility] Interpretation and review of laboratory results Abnormal [facility] Potassium [Moles/Vol] 3.1 mmol/L Low 3.5 - 5.1 mmol/L [facility] Comment on above: Plasma potassium bhaskar ues may be up to 0.5 mmol/L lower than serum values. Sodium [Moles/Vol] 134 mmol/L Low 136 - 145 mmol/L [facility] Urea nitrogen [Mass/Vol] 10 mg/dL 9 - 23 mg/dL [facility] Blood type and Crossmatch pa kojo (Bld)on 11-22-2024 ABO group Nom (Bld) O [facility] Blood group antibody screen GEL Ql Negative [facility] D Ag Ql (RBC) Positive [facility] CBC W Auto Differential pane l (Bld)on 11-22-2024 Basophils (Bld) [#/Vol] 0.2 10*3/uL 0.0 - 0.2 10*3/uL [facility] Basophils/100 WBC (Bld) 2.3 % High 0.0 - 2.0 % [facility] Eosinophils (Bld) [#/Vol] 0.4 10*3/uL 0.0 - 0.5 10*3/uL [facility] Eosinophils/100 WBC (Bld) 4.2 % 0.0 - 6.0 % [facility] Erythrocyte distribution width (RBC) [Ratio] 17.8 % High 11.5 - 15.0 % [facility] Hematocrit (Bld) [Volume fraction] 23.9 % Low 35.0 - 47.0 % [facility] Hemoglobin (Bld) [Mass/Vol] 7.8 g/dL Low 11.7 - 16.0 g/dL [facility] Immature granulocytes (Bld) [#/Vol] 0 10*3/uL NINF - 0.1 10*3/uL [facility] Immature granulocytes/100 WBC (Bld) 0.5 % 0.0 - 2.0 % [facility] Interpretation and review of laboratory results Abnormal [facility] IPF 3 [facility] Lymphocytes (Bld) [#/Vol] 1.6 10*3/uL 1.0 - 4.3 10*3/uL [facility] Lymphocytes/100 WBC (Bld) 18.4 % 15.0 - 45.0 % [facility] MCH (RBC) [Entitic mass] 29.8 pg 26.0 - 34.0 pg [facility] MCHC (RBC) [Mass/Vol] 32.6 % 30.5 - 36.0 % [facility] MCV (RBC) [Entitic vol] 91.2 fL 77.0 - 99.0 fL [facility] Monocytes (Bld) [#/Vol] 0.8 10*3/uL 0.0 - 0.9 10*3/uL [facility] Monocytes/100 WBC (Bld) 9.3 % 5.0 - 13.0 % [facility] Neutrophils (Bld) [#/Vol] 5.6 10*3/uL 1.8 - 7.5 10*3/uL [facility] Neutrophils/100 WBC (Bld) 65.3 % 38.0 - 82.0 % [facility] Nucleated RBC/100 WBC (Bld) [Ratio] 0 % [facility] Platelet mean volume (Bld) [Entitic vol] 10.3 fL 9.0 - 12.7 fL [facility] Platelets (Bld) [#/Vol] 575 10*3/uL High 140 - 440 10*3/uL [facility] RBC (Bld) [#/Vol] 2.62 10*6/uL Low 3.80 - 5.2 0 10*6/uL [facility] WBC (Bld) [#/Vol] 8.6 10*3/uL 3.6 - 10.7 10*3/uL [facility] CBC WITH AUTO DIFFERENTIALon 11-22-2024 Basophils (Bld) [#/Vol] 0.2 10*3/uL Normal 0.0-0.2 [facility] Comment on above: Performed By: #### L [id number] ####Civil Engineering Design Draftsperson: DEANN CURRAN ([id number])[facility] (SB[facility])[address] [place] [address] Basophils/100 WBC (Bld) 2.3 % High 0.0-2.0 [facility] Comment on above: Performed By: #### L [id number] ####Civil [employer] Design Draftsperson: DEANN CURRAN ([id number])[facility] ([facility])[address] [place] [address] [place] Eosinophils (Bld) [#/Vol] 0.4 10*3/uL Normal 0.0-0.5 [facility] Comment on above: Performed By: #### L [id number] ####[employer] Design Draftsperson: DEANN CURRAN ([id number])[facility] (SB[facility])[address] [place] [address] Eosinophils/100 WBC (Bld) 4.2 % Normal 0.0-6.0 [facility] Comment on above: Performed By: #### L [id number] ####Civil [employer] Design Draftsperson: DEANN CURRAN ([id number])[facility] (SBHL[facility])[address] [place] [address] [place] Erythrocyte distribution width (RBC) [Ratio] 17.8 % High 11.5-15.0 [facility] Comment on above: Performed By: #### L [id number] ####Civil Engineering Design Draftsperson: DEANN CURRAN ([id number])[facility] (SB[facility])[address] Hematocrit (Bld) [Volume fraction] 23.9 % Low 35.0-47.0 [facility] Comment on above: Performed By: #### L [id number] ####Civil [employer] Design Draftsperson: DEANN CURRAN ([id number])[facility] [place] ([facility])[address] Hemoglobin (Bld) [Mass/Vol] 7.8 g/dL Low 11.7-16.0 [facility] Comment on above: Performed By: #### L [id number] ####Civil Engineering Design Draftsperson: DEANN CURRAN ([id number])[facility] ([facility])[address] IMMATURE GRANS % 0.5 % Normal 0.0-2.0 [facility] Comment on above: Performed By: #### L [id number] ####Civil Engineering Design Draftsperson: DEANN CURRAN ([id number])[facility] (SB[facility])[address] IMMATURE GRANS ABSOLUTE 0.0 10*3/uL Normal <0.1 [facility] Comment on above: Performed By: #### L [id number] ####Civil Engineering Design Draftsperson: DEANN CURRAN ([phone])[facility])[address] IPF 3 Normal [facility] Comment on above: Performed By: #### L [id number] ####Civil Engineering Design Draftsperson: DEANN CURRAN ([id number])[facility] [place] (SBHLAB)155 [place] [address] [place] Lymphocytes (Bld) [#/Vol] 1.6 10*3/uL Normal 1.0-4.3 [facility] Comment on above: Performed By: #### L [id number] ####Civil Engineering Design Draftsperson: DEANN CURRAN ([id number])[facility] (SB[facility])[address] [place] [address] [place] Lymphocytes/100 WBC (Bld) 18.4 % Normal 15.0-45.0 [facility] Comment on above: Performed By: #### L [id number] ####Civil Engineering Design Draftsperson: DEANN NUNEZGoodRYLEE ([id number])[facility] [place] (SBHLAB)[address] MCH (RBC) [Entitic mass] 29.8 pg Normal 26.0-34.0 [facility] Comment on above: Performed By: #### L [id number] ####Civil Engineering Design Draftsperson: DEANN MAGDY ([id number])[facility] [place] (SBHLAB)[address] MCHC 32.6 % Normal 30.5-36.0 [facility] Comment on above: Performed By: #### L [id number] ####Civil Engineering Design Draftsperson: DEANN NUNEZGABRIEL ([id number])[facility] [place] (SBHLAB)[address] MCV (RBC) [Entitic vol] 91.2 fL Normal 77.0-99.0 S [facility] Comment on above: Performed By: #### L [id number] ####Civil Engineering Design Draftsperson: DEANN FERNANDESRYLEE ([id number])[facility] [place] (SB[facility]AB)[address] Monocytes (Bld) [#/Vol] 0.8 10*3/uL Normal 0.0-0.9 [facility] Comment on above: Performed By: #### L [id number] ####Civil Engineering Design Draftsperson: DEANN FERNANDESRYLEE ([id number])[facility] [place] (SB[facility])[address] Monocytes/100 WBC (Bld) 9.3 % Normal 5.0-13.0 S [facility] Comment on above: Performed By: #### L [id number] ####Civil Engineering Design Draftsperson: DEANN FERNANDESRYLEE ([id number])[facility] [place] (SB[facility])[address] NEUTROPHILS ABSOLUTE 5.6 10*3/uL Normal 1.8-7.5 [facility] Comment on above: Performed By: #### L [id number] ####Civil Engineering Design Draftsperson: DEANN CURRAN ([id number])[facility] [place] (SB[facility])[address] Neutrophils/100 WBC (Bld) 65.3 % Normal 38.0-82.0 [facility] Comment on above: Performed By: #### L [id number] ####Civil Engineering Design Draftsperson: DEANN CURRAN ([id number])[facility] [place] (SB[facility])[address] NRBC 0.0 /100 WBCs Normal 0.0-2.0 [facility] Comment on above: Performed By: #### L [id number] ####Civil Engineering Design Draftsperson: DEANN CURRAN ([id number])[facility] [place] (SB[facility])[address] Platelet mean volume (Bld) [Entitic vol] 10.3 fL Normal 9.0-12.7 [facility] Comment on above: Performed By: #### L [id number] ####Civil Engineering Design Draftsperson: DEANN CURRAN ([id number])[facility] [place] (SB[facility])[address] Platelets (Bld) [#/Vol] 575 10*3/uL High 140-440 [facility] Comment on above: Performed By: #### L [id number] ####Civil Engineering Design Draftsperson: DEANN CURRAN ([id number])[facility] [place] (SB[facility])[address] [place] [address] [place] RBC (Bld) [#/Vol] 2.62 10*6/uL Low 3.80-5.20 [facility] Comment on above: Performed By: #### L [id number] ####Civil Engineering Design Draftsperson: DEANN CURRAN ([id number])[facility] [place] (SB[facility]AB)[address] [place] [address] [place] WBC (Bld) [#/Vol] 8.6 10*3/uL Normal 3.6-10.7 [facility] Comment on above: Performed By: #### L [id number] ####Civil Engineering Design Draftsperson: DEANN CURRAN ([id number])[facility] ([facility])[address] [place] [address] ED Nursing Noteon 11-22-2024 ED Nursing Note Called [facility] [phone]. Spoke with CYNTHIA Perry. Advised pt sent in from dialysis for low hgb of 6.5, [facility] ED hgb 7.8. pt stable and will be sent back. Normal [facility] ED Provider Noteon ED Provider Note Normal [facility] Progress Noteon 11-16-2024 Progress Note [facility] [id number] 11-15-2024 [id number] Intermediate/SNF - N [facility] [address] [facility] [id number] Patient/Family Choice [facility] [id number] [facility] [id number] MAR & Discharge med list transmitted to [facility] via [employer] per TCC request. Electronically signed by JASPREET Verdin [facility] [id number] [facility] Nursing Noteon 11-15-2024 Nursing Note Report called to david dunn at [facility]. All questions answered. 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 Normal [facility] Progress Noteon 11-15-2024 Progress Note [facility] Consulton 11-14-2024 Consult [facility] [id number] 11-13-2024 [id number] [facility] [id number] Patient is from a SN F. 30 day readmission is not warranted. [facility] BASIC METABOLIC PANELon 08- Anion gap [Moles/Vol] 11 mmol/L Normal 3-13 [facility] Comment on above: Performed By: #### L AB15 ####Civil Engineering Design Draftsperson: PHILLY FRANCO ([id number])[facility] ([facility])[address] [place] [address] Calcium [Mass/Vol] 7.6 mg/dL Low 8.8-10.0 [facility] Comment on above: Performed By: #### L AB15 ####Civil Engineering Design Draftsperson: PHILLY FRANCO ([phone])[facility] ([facility])[address] [place] [address] [place] Chloride [Moles/Vol] 103 mmol/L Normal 98-107 [facility] Comment on above: Performed By: #### L AB15 ####Civil Engineering Design Draftsperson: PHILLY FRANCO ([id number])[facility])[address] [place] [address] CO2 [Moles/Vol] 23 mmol/L Normal 23-31 [facility] Comment on above: Performed By: #### L AB15 ####Civil Engineering Design Draftsperson: PHILLY FRANCO ([id number])[facility] ([facility])[address] [place] [address] Creatinine [Mass/Vol] 3.51 mg/dL High 0.57-1.11 [facility] Comment on above: Performed By: #### L AB15 ####Civil Engineering Design Draftsperson: PHILLY FRANCO ([id number])[facility])[address] [place] [address] [place] GLOMERULAR FILTRATION RATE ML/MIN/1.73 SQ M.PREDICTED 13.1 mL/min/1.73m*2 Low >60.0 [facility] Comment on above: Result Comment: Calc ulation based on the Chronic Kidney Disease Epidemiology Collaboration (CKD-EPI) equation refit without adjustment for race Performed By: #### L AB15 ####Civil Engineering Design Draftsperson: PHILLY FRANCO ([id number])[facility])[address] [place] [address] [place] Glucose [Mass/Vol] 62 mg/dL Low 82-115 [facility] Comment on above: Performed By: #### L AB15 ####Civil Engineering Design Draftsperson: PHILLY [id number])[facility] ([facility])[address] [place] [address] Potassium [Moles/Vol] 4.0 mmol/L Normal 3.5-5.1 [facility] Comment on above: Result Comment: [facility] potassium values may be up to 0.5 mmol/L lower than serum values. Performed By: #### L AB15 ####Civil Engineering Design Draftsperson: PHILLY FRANCO ([phone])[facility] ([facility])[address] [place] [address] Sodium [Moles/Vol] 137 mmol/L Normal 136-145 [facility] Comment on above: Performed By: #### L AB15 ####Civil Engineering Design Draftsperson: PHILLY FRANCO ([id number])[facility])[address] [place] [address] Urea nitrogen [Mass/Vol] 16 mg/dL Normal 9-23 [facility] Comment on above: Performed By: #### L AB15 ####Civil Engineering Design Draftsperson: PHILLY FRANCO ([id number])[facility])[address] [place] [address] Basic metabolic 1998 panelon 11-13-2024 Anion gap [Moles/Vol] 11 mmol/L 3 - 13 mmol/L [facility] Calcium [Mass/Vol] 7.6 mg/dL Low 8.8 - 10. 0 mg/dL [facility] Chloride [Moles/Vol] 103 mmol/L 98 - 10 7 mmol/L [facility] CO2 [Moles/Vol] 23 mmol/L 23 - 31 mmol/L [facility] Creatinine [Mass/Vol] 3.51 mg/dL High 0.57 - 1.11 mg/dL [facility] GFR/1.73 sq M.predicted (S/P/Bld) [Vol rate/Area] 13.1 mL/min Low - PINF [facility] Comment on above: Calculation based on the Chronic Kidney Disease Epidemiology Collaboration (CKD-EPI) equation refit without adjustment for race Glucose [Mass/Vol] 62 mg/dL Low 82 - 115 mg/dL [facility] Interpretation and review of laboratory results Abnormal [facility] Potassium [Moles/Vol] 4 mmol/L 3.5 - 5.1 mmol/L [facility] Comment on above: Plasma potassium bhaskar ues may be up to 0.5 mmol/L lower than serum values. Sodium [Moles/Vol] 137 mmol/L 136 - 145 mmol/L [facility] Urea nitrogen [Mass/Vol] 16 mg/dL 9 - 23 mg/dL [facility] CBC W Auto Differential pane l (Bld)Ordered By: Andre Ervin on 11-13-2024 Basophils (Bld) [#/Vol] 0.1 10*3/uL 0.0 - 0.2 10*3/uL [facility] Basophils/100 WBC (Bld) 1.3 % 0.0 - 2.0 % [facility] Eosinophils (Bld) [#/Vol] 0.7 10*3/uL High 0.0 - 0.5 10*3/uL [facility] Eosinophils/100 WBC (Bld) 7.3 % High 0.0 - 6.0 % [facility] Erythrocyte distribution width (RBC) [Ratio] 17 % High 11.5 - 15.0 % [facility] Hematocrit (Bld) [Volume fraction] 22.7 % Low 35.0 - 47.0 % [facility] Hemoglobin (Bld) [Mass/Vol] 7.1 g/dL Low 11.7 - 16.0 g/dL [facility] Immature granulocytes (Bld) [#/Vol] 0.1 10*3/uL High NINF - 0.1 10*3/uL [facility] Immature granulocytes/100 WBC (Bld) 1.1 % 0.0 - 2.0 % [facility] Interpretation and review of laboratory results Abnormal [facility] Lymphocytes (Bld) [#/Vol] 1.9 10*3/uL 1.0 - 4.3 10*3/uL [facility] Lymphocytes/100 WBC (Bld) 19.1 % 15.0 - 45.0 % [facility] MCH (RBC) [Entitic mass] 28.7 pg 26.0 - 34.0 pg [facility] MCHC (RBC) [Mass/Vol] 31.3 % 30.5 - 36.0 % [facility] MCV (RBC) [Entitic vol] 91.9 fL 77.0 - 99.0 fL [facility] Monocytes (Bld) [#/Vol] 0.9 10*3/uL 0.0 - 0.9 10*3/uL [facility] Monocytes/100 WBC (Bld) 8.7 % 5.0 - 13.0 % [facility] Neutrophils (Bld) [#/Vol] 6.3 10*3/uL 1.8 - 7.5 10*3/uL [facility] Neutrophils/100 WBC (Bld) 62.5 % 38.0 - 82.0 % [facility] Nucleated RBC/100 WBC (Bld) [Ratio] 0 % [facility] Platelet mean volume (Bld) [Entitic vol] 10.3 fL 9.0 - 12.7 fL [facility] Platelets (Bld) [#/Vol] 495 10*3/uL High 140 - 440 10*3/uL [facility] RBC (Bld) [#/Vol] 2.47 10*6/uL Low 3.80 - 5.2 0 10*6/uL [facility] WBC (Bld) [#/Vol] 10.1 10*3/uL 3.6 - 10.7 10*3/uL [facility] CBC WITH AUTO DIFFERENTIALon 11-13-2024 Basophils (Bld) [#/Vol] 0.1 10*3/uL Normal 0.0-0.2 [facility] Comment on above: Performed By: #### L [id number] ####Civil Engineering Design Draftsperson: PHILLY FRANCO ([id number])[facility] ([facility])[address] [place] [address] Basophils/100 WBC (Bld) 1.3 % Normal 0.0-2.0 S [facility] Comment on above: Performed By: #### L [id number] ####Civil Engineering Design Draftsperson: PHILLY FRANCO ([id number])[facility] ([facility])[address] [place] [address] [place] Eosinophils (Bld) [#/Vol] 0.7 10*3/uL High 0.0-0.5 [facility] Comment on above: Performed By: #### L [id number] ####Civil Engineering Design Draftsperson: PHILLY FRANCO ([id number])[facility] ([facility])[address] [place] [address] [place] Eosinophils/100 WBC (Bld) 7.3 % High 0.0-6.0 [facility] Comment on above: Performed By: #### L [id number] ####Civil Engineering Design Draftsperson: PHILLY FRANCO ([id number])[facility])[address] [place] [address] Erythrocyte distribution width (RBC) [Ratio] 17.0 % High 11.5-15.0 [facility] Comment on above: Performed By: #### L [id number] ####Civil Engineering Design Draftsperson: PHILLY FRANCO ([id number])[facility])[address] [place] [address] Hematocrit (Bld) [Volume fraction] 22.7 % Low 35.0-47.0 [facility] Comment on above: Performed By: #### L [id number] ####Civil Engineering Design Draftsperson: PHILLY FRANCO ([id number])[address] Hemoglobin (Bld) [Mass/Vol] 7.1 g/dL Low 11.7-16.0 [facility] Comment on above: Performed By: #### L [id number] ####Civil Engineering Design Draftsperson: PHILLY FRANCO ([phone])[address] IMMATURE GRANS % 1.1 % Normal 0.0-2.0 [facility] Comment on above: Performed By: #### L [id number] ####Civil Engineering Design Draftsperson: PHILLY FRANCO ([id number])[address] IMMATURE GRANS ABSOLUTE 0.1 10*3/uL High <0.1 [facility] Comment on above: Performed By: #### L [id number] ####Civil Engineering Design Draftsperson: PHILLY FRANCO ([id number])[address] Lymphocytes (Bld) [#/Vol] 1.9 10*3/uL Normal 1.0-4.3 [facility] Comment on above: Performed By: #### L [id number] ####Civil Engineering Design Draftsperson: PHILLY FRANCO ([id number])[facility])[address] [place] [address] Lymphocytes/100 WBC (Bld) 19.1 % Normal 15.0-45.0 [facility] Comment on above: Performed By: #### L [id number] ####Civil Engineering Design Draftsperson: PHILLY FRANCO ([id number])[facility])[address] [place] [address] MCH (RBC) [Entitic mass] 28.7 pg Normal 26.0-34.0 [facility] Comment on above: Performed By: #### L [id number] ####Civil Engineering Design Draftsperson: PHILLY FRANCO ([id number])[facility])[address] [place] [address] MCHC 31.3 % Normal 30.5-36.0 [facility] Comment on above: Performed By: #### L [id number] ####Civil Engineering Design Draftsperson: PHILLY FRANCO ([id number])[facility])[address] [place] [address] MCV (RBC) [Entitic vol] 91.9 fL Normal 77.0-99.0 S [facility] Comment on above: Performed By: #### L [id number] ####Civil Engineering Design Draftsperson: PHILLY FRANCO ([id number])[facility])[address] [place] [address] Monocytes (Bld) [#/Vol] 0.9 10*3/uL Normal 0.0-0.9 [facility] Comment on above: Performed By: #### L [id number] ####Civil Engineering Design Draftsperson: PHILLY FRANCO ([id number])[facility])[address] [place] [address] Monocytes/100 WBC (Bld) 8.7 % Normal 5.0-13.0 S [facility] Comment on above: Performed By: #### L [id number] ####Civil Engineering Design Draftsperson: PHILLY FRANCO ([id number])[facility] [place] [address] NEUTROPHILS ABSOLUTE 6.3 10*3/uL Normal 1.8-7.5 [facility] Comment on above: Performed By: #### L [id number] ####Civil Engineering Design Draftsperson: PHILLY FRANCO ([id number])[facility] ([facility])[address] [place] [address] Neutrophils/100 WBC (Bld) 62.5 % Normal 38.0-82.0 [facility] Comment on above: Performed By: #### L [id number] ####Civil Engineering Design Draftsperson: PHILLY FRANCO ([id number])[facility] ([facility])[address] [place] [address] NRBC 0.0 /100 WBCs Normal 0.0-2.0 [facility] Comment on above: Performed By: #### L [id number] ####Civil Engineering Design Draftsperson: PHILLY FRANCO ([id number])[facility] ([facility])[address] [place] [address] Platelet mean volume (Bld) [Entitic vol] 10.3 fL Normal 9.0-12.7 [facility] Comment on above: Performed By: #### L [id number] ####Civil Engineering Design Draftsperson: PHILLY FRANCO ([id number])[facility] ([facility])[address] [place] [address] Platelets (Bld) [#/Vol] 495 10*3/uL High 140-440 [facility] Comment on above: Performed By: #### L [id number] ####Civil Engineering Design Draftsperson: PHILLY FRANCO ([id number])[facility] ([facility])[address] [place] [address] [place] RBC (Bld) [#/Vol] 2.47 10*6/uL Low 3.80-5.20 [facility] Comment on above: Performed By: #### L [id number] ####Civil Engineering Design Draftsperson: PHILLY FRANCO ([id number])[facility] ([facility])[address] [place] [address] [place] WBC (Bld) [#/Vol] 10.1 10*3/uL Normal 3.6-10.7 [facility] Comment on above: Performed By: #### L [id number] ####Civil Engineering Design Draftsperson: PHILLY FRANCO ([phone])[facility] ([facility])[address] [place] [address] Consulton 11-13-2024 Consult Normal [facility] HEMOGLOBIN AND HEMATOCRIT, B LOODon 11-13-2024 Hematocrit (Bld) [Volume fraction] 23.2 % Low 35.0-47.0 [facility] Comment on above: Performed By: #### L [id number] ####Civil Engineering Design Draftsperson: PHILLY FRANCO ([id number])[facility] ([facility])[address] [place] [address] Hemoglobin (Bld) [Mass/Vol] 7.2 g/dL Low 11.7-16.0 [facility] Comment on above: Performed By: #### L [id number] ####Civil Engineering Design Draftsperson: PHILLY FRANCO ([id number])[facility] ([facility])[address] [place] [address] Hemoglobin (Bld) [Mass/Vol]o n 11-13-2024 Hematocrit (Bld) [Volume fraction] 23.2 % Low 35.0 - 47.0 % [facility] Interpretation and review of laboratory results Abnormal [facility] - Chemistry and C hemistry - challengeon 11-13-2024 Glucose [Mass/Vol] 81 mg/dL 70 - 100 mg/dL [facility] Glucose [Mass/Vol] 64 mg/dL Low 70 - 100 mg/dL [facility] Laboratory - Hematology and Cell countson 11-13-2024 Hemoglobin (Bld) [Mass/Vol] 7.2 g/dL Low 11.7 - 16.0 g/dL [facility] No Panel Informationon 11-13 Interpretation and review of laboratory results Normal [facility] Performed by: [address] [address] CLIA ID: [id number] [facility] Interpretation and review of laboratory results Abnormal [facility] Performed by: [address] [address] [address]IA ID: [id number] [facility] Progress Noteon 11-13-2024 Progress Note Normal [facility] Progress Note Normal [facility] BASIC METABOLIC PANELon 11-03 Anion gap [Moles/Vol] 12 mmol/L Normal 3-13 [facility] Comment on above: Performed By: #### L AB15 ####Civil Engineering Design Draftsperson: DEANN CURRAN ([id number])[facility] [place] Calcium [Mass/Vol] 8.1 mg/dL Low 8.8-10.0 [facility] Comment on above: Performed By: #### L AB15 ####Civil Engineering Design Draftsperson: DEANN CURRAN ([id number])[facility] [place] ([facility])[address] Chloride [Moles/Vol] 104 mmol/L Normal 98-107 [facility] Comment on above: Performed By: #### L AB15 ####Civil Engineering Design Draftsperson: DEANN CURRAN ([id number])[facility] [place] ([facility])[address] CO2 [Moles/Vol] 24 mmol/L Normal 23-31 [facility] Comment on above: Performed By: #### L AB15 ####Civil Engineering Design Draftsperson: DEANN CURRAN ([id number])[facility] [place] ([facility])[address] Creatinine [Mass/Vol] 3.37 mg/dL High 0.57-1.11 [facility] Comment on above: Performed By: #### L AB15 ####Civil Engineering Design Draftsperson: DEANN CURRAN ([id number])[facility] [place] ([facility])[address] GLOMERULAR FILTRATION RATE ML/MIN/1.73 SQ M.PREDICTED 13.8 mL/min/1.73m*2 Low >60.0 [facility] Comment on above: Result Comment: Calc ulation based on the Chronic Kidney Disease Epidemiology Collaboration (CKD-EPI) equation refit without adjustment for race Performed By: #### L AB15 ####Civil Engineering Design Draftsperson: DEANN CURRAN ([id number])[facility] ([facility])[address] Glucose [Mass/Vol] 78 mg/dL Low 82-115 [facility] Comment on above: Performed By: #### L AB15 ####Civil Engineering Design Draftsperson: DEANN CURRAN ([id number])[facility] ([facility])[address] Potassium [Moles/Vol] 4.0 mmol/L Normal 3.5-5.1 [facility] Comment on above: Result Comment: [facility] potassium values may be up to 0.5 mmol/L lower than serum values. Performed By: #### L AB15 ####Civil Engineering Design Draftsperson: DEANN CURRAN ([id number])[facility] ([facility])[address] Sodium [Moles/Vol] 140 mmol/L Normal 136-145 [facility] Comment on above: Performed By: #### L AB15 ####Civil Engineering Design Draftsperson: DEANN CURRAN ([id number])[facility] ([facility])[address] Urea nitrogen [Mass/Vol] 15 mg/dL Normal 9-23 [facility] Comment on above: Performed By: #### L AB15 ####Civil Engineering Design Draftsperson: DEANN CURRAN ([id number])[facility] ([facility])39 [place] [address] Basic metabolic 1998 panelon 11-12-2024 Anion gap [Moles/Vol] 12 mmol/L 3 - 13 mmol/L [facility] Calcium [Mass/Vol] 8.1 mg/dL Low 8.8 - 10. 0 mg/dL [facility] Chloride [Moles/Vol] 104 mmol/L 98 - 10 7 mmol/L [facility] CO2 [Moles/Vol] 24 mmol/L 23 - 31 mmol/L [facility] Creatinine [Mass/Vol] 3.37 mg/dL High 0.57 - 1.11 mg/dL [facility] GFR/1.73 sq M.predicted (S/P/Bld) [Vol rate/Area] 13.8 mL/min Low - PINF [facility] Comment on above: Calculation based on the Chronic Kidney Disease Epidemiology Collaboration (CKD-EPI) equation refit without adjustment for race Glucose [Mass/Vol] 78 mg/dL Low 82 - 115 mg/dL [facility] Interpretation and review of laboratory results Abnormal [facility] Potassium [Moles/Vol] 4 mmol/L 3.5 - 5.1 mmol/L [facility] Comment on above: Plasma potassium bhaskar ues may be up to 0.5 mmol/L lower than serum values. Sodium [Moles/Vol] 140 mmol/L 136 - 145 mmol/L [facility] Urea nitrogen [Mass/Vol] 15 mg/dL 9 - 23 mg/dL [facility] CBC W Auto Differential pane l (Bld)Ordered By: Mona Huston on 11-12-2024 Erythrocyte distribution width (RBC) [Ratio] 17 % High 11.5 - 15.0 % [facility] Hematocrit (Bld) [Volume fraction] 29 % Low 35.0 - 47.0 % [facility] Hemoglobin (Bld) [Mass/Vol] 9.3 g/dL Low 11.7 - 16.0 g/dL [facility] IPF 4 [facility] MCH (RBC) [Entitic mass] 29.2 pg 26.0 - 34.0 pg [facility] MCHC (RBC) [Mass/Vol] 32.1 % 30.5 - 36.0 % [facility] MCV (RBC) [Entitic vol] 91.2 fL 77.0 - 99.0 fL [facility] Platelet mean volume (Bld) [Entitic vol] 10.5 fL 9.0 - 12.7 fL [facility] Platelets (Bld) [#/Vol] 407 10*3/uL 140 - 440 10*3/uL [facility] RBC (Bld) [#/Vol] 3.18 10*6/uL Low 3.80 - 5.2 0 10*6/uL [facility] WBC (Bld) [#/Vol] 10.9 10*3/uL High 3.6 - 10.7 10*3/uL [facility] CBC WITH AUTO DIFFERENTIALon 11-12-2024 Erythrocyte distribution width (RBC) [Ratio] 17.0 % High 11.5-15.0 [facility] Comment on above: Performed By: #### L [id number], [id number] ####Civil Engineering Design Draftsperson: DEANN CURRAN ([id number])[facility] ([facility])[address] Hematocrit (Bld) [Volume fraction] 29.0 % Low 35.0-47.0 [facility] Comment on above: Performed By: #### L [id number], [id number] ####Civil Engineering Design Draftsperson: DEANN CURRAN ([phone])[facility] ([facility])[address] [place] [address] Hemoglobin (Bld) [Mass/Vol] 9.3 g/dL Low 11.7-16.0 [facility] Comment on above: Performed By: #### L [id number], [id number] ####Civil Engineering Design Draftsperson: DEANN CURRAN ([id number])[facility] ([facility])[address] [place] [address] IPF 4 Normal [facility] Comment on above: Performed By: #### L [id number], [id number] ####Civil Engineering Design Draftsperson: DEANN CURRAN ([id number])[facility] ([facility])[address] [place] [address] MCH (RBC) [Entitic mass] 29.2 pg Normal 26.0-34.0 [facility] Comment on above: Performed By: #### L [id number], [id number] ####Civil Engineering Design Draftsperson: DEANN CURRAN ([id number])[facility] ([facility])[address] MCHC 32.1 % Normal 30.5-36.0 [facility] Comment on above: Performed By: #### L [id number], [id number] ####Civil Engineering Design Draftsperson: DEANN CURRAN ([id number])[facility] ([facility])[address] MCV (RBC) [Entitic vol] 91.2 fL Normal 77.0-99.0 [facility] Comment on above: Performed By: #### L [id number], [id number] ####Civil Engineering Design Draftsperson: DEANN CURRAN ([id number])[facility] ([facility])[address] Platelet mean volume (Bld) [Entitic vol] 10.5 fL Normal 9.0-12.7 [facility] Comment on above: Performed By: #### L [id number], [id number] ####Civil Engineering Design Draftsperson: DEANN CURRAN ([id number])[facility] [place] ([facility])[address] Platelets (Bld) [#/Vol] 407 10*3/uL Normal 140-440 [facility] Comment on above: Performed By: #### L [id number], [id number] ####Civil Engineering Design Draftsperson: DEANN CURRAN ([phone])[facility] [place] ([facility])[address] RBC (Bld) [#/Vol] 3.18 10*6/uL Low 3.80-5.20 [facility] Comment on above: Performed By: #### L [id number], [id number] ####Civil Engineering Design Draftsperson: DEANN CURRAN ([id number])[facility] [place] ([facility])[address] WBC (Bld) [#/Vol] 10.9 10*3/uL High 3.6-10.7 [facility] Comment on above: Performed By: #### L [id number], [id number] ####Civil Engineering Design Draftsperson: DEANN CURRAN ([id number])[facility] [place] ([facility])[address] Consulton 11-12-2024 Consult Normal [facility] ED Nursing Noteon 11-12-2024 ED Nursing Note Moody Harman at bedside for transport to [facility] for admission. Packet/blue card sent with crew. Normal [facility] ED Nursing Note Report called to Fawad rouse, RN 1 Central. Pt awaiting transport, resting comfortably at this time, side rails up x2, curtain remains open for safety. Normal [facility] ED Provider Noteon ED Provider Note Normal [facility] MANUAL DIFFERENTIALon 2024 ANISOCYTOSIS PRESENCE IN BLOOD BY LIGHT MICROSCOPY Moderate Abnormal (none) [facility] Comment on above: Performed By: #### L [id number], [id number] ####Civil Engineering Design Draftsperson: DEANN CURRAN ([id number])[facility] [place] ([facility])[address] [place] [address] [place] BASOPHILS (10*3/UL) IN BLOOD BY MANUAL COUNT 0.1 10*3/uL Normal 0.0-0.2 [facility] Comment on above: Performed By: #### L [id number], [id number] ####Civil Engineering Design Draftsperson: DEANN CURRAN ([id number])[facility] ([facility])[address] [place] [address] [place] BASOPHILS TOTAL PER COUNTED LEUKOCYTES BY MANUAL COUNT 1 Normal [facility] Comment on above: Performed By: #### L [id number], [id number] ####Civil Engineering Design Draftsperson: DEANN CURRAN ([id number])[facility] [place] ([facility])[address] [place] [address] [place] BASOPHILS/100 LEUKOCYTES IN BLOOD BY MANUAL COUNT 1 % Normal 0-2 [facility] Comment on above: Performed By: #### L [id number], [id number] ####Civil Engineering Design Draftsperson: DEANN CURRAN ([id number])[facility] [place] ([facility])[address] [place] [address] [place] CHERI CELLS PRESENCE IN BLOOD BY LIGHT MICROSCOPY Rare Abnormal (none) [facility] Comment on above: Performed By: #### L [id number], [id number] ####Civil Engineering Design Draftsperson: DEANN CURRAN ([id number])[facility] [place] ([facility])[address] CELLS COUNTED TOTAL (#) IN BLOOD 100 Normal [facility] Comment on above: Performed By: #### L [id number], [id number] ####Civil Engineering Design Draftsperson: DEANN CURRAN ([id number])[facility] [place] ([facility])[address] DIFFERENTIAL METHOD Manual differential performed Normal [facility] Comment on above: Performed By: #### L [id number], [id number] ####Civil Engineering Design Draftsperson: DEANN CURRAN ([id number])[facility] [place] ([facility])[address] [place] [address] [place] EOSINOPHILS (10*3/UL) IN BLOOD BY MANUAL COUNT 0.3 10*3/uL Normal 0.0-0.5 [facility] Comment on above: Performed By: #### L [id number], [id number] ####Civil Engineering Design Draftsperson: DEANN CURRAN ([id number])[facility] [place] ([facility])[address] EOSINOPHILS TOTAL PER COUNTED LEUKOCYTES BY MANUAL COUNT 3 High 0-1 [facility] Comment on above: Performed By: #### L [id number], [id number] ####Civil Engineering Design Draftsperson: DEANN CURRAN ([id number])[facility] [place] ([facility])[address] [place] [address] [place] EOSINOPHILS/100 LEUKOCYTES IN BLOOD BY MANUAL COUNT 3 % Normal 0-6 [facility] Comment on above: Performed By: #### L [id number], [id number] ####Civil Engineering Design Draftsperson: DEANN CURRAN ([id number])[facility] [place] ([facility])[address] [place] [address] [place] LEUKOCYTE MORPHOLOGY FINDING IN BLOOD Normal Normal [facility] Comment on above: Performed By: #### L [id number], [id number] ####Civil Engineering Design Draftsperson: DEANN CURRAN ([id number])[facility] [place] ([facility])[address] [place] [address] [place] LEUKOCYTES (10*3/UL) NUCLEATED ERYTHROCYTE ADJUST 10.9 10*3/uL High 3.6-10.7 [facility] Comment on above: Performed By: #### L [id number], [id number] ####Civil Engineering Design Draftsperson: DEANN NUNEZGABRIEL ([id number])[facility] [place] ([facility])[address] [place] [address] [place] LYMPHOCYTES (10*3/UL) IN BLOOD BY MANUAL COUNT 1.3 10*3/uL Normal 1.0-4.3 [facility] Comment on above: Performed By: #### L [id number], [id number] ####Civil Engineering Design Draftsperson: DEANN NUNEZGABRIEL ([id number])[facility] [place] ([facility])[address] LYMPHOCYTES TOTAL PER COUNTED LEUKOCYTES BY MANUAL COUNT 12 Normal [facility] Comment on above: Performed By: #### L [id number], [id number] ####Civil Engineering Design Draftsperson: DEANN FERNANDESRYLEE ([id number])[facility] [place] ([facility])[address] [place] [address] [place] LYMPHOCYTES/100 LEUKOCYTES IN BLOOD BY MANUAL COUNT 12 % Low 15-45 [facility] Comment on above: Performed By: #### L [id number], [id number] ####Civil Engineering Design Draftsperson: DEANN FERNANDESRYLEE ([id number])[facility] [place] ([facility])[address] [place] [address] [place] MONOCYTES (10*3/UL) IN BLOOD BY MANUAL COUNT 0.5 10*3/uL Normal 0.0-0.9 [facility] Comment on above: Performed By: #### L [id number], [id number] ####Civil Engineering Design Draftsperson: DEANN FERNANDESRYLEE ([id number])[facility] [place] ([facility])[address] [place] [address] [place] MONOCYTES TOTAL PER COUNTED LEUKOCYTES BY MANUAL COUNT 5 Normal [facility] Comment on above: Performed By: #### L [id number], [id number] ####Civil Engineering Design Draftsperson: DEANN FERNANDESRYLEE ([id number])[facility] [place] ([facility])[address] [place] [address] [place] MONOCYTES/100 LEUKOCYTES IN BLOOD BY MANUAL COUNT 5 % Normal 5-13 [facility] Comment on above: Performed By: #### L [id number], [id number] ####Civil Engineering Design Draftsperson: DEANN CURRAN ([id number])[facility] [place] ([facility])[address] NEUTROPHILS (SEGS+BANDS) (10*3/UL) BY MANUAL COUNT 8.6 10*3/uL High 1.8-7.0 [facility] Comment on above: Performed By: #### L [id number], [id number] ####Civil Engineering Design Draftsperson: DEANN CURRAN ([phone])[facility] [place] ([facility])[address] NEUTROPHILS TOTAL PER COUNTED LEUKOCYTES BY MANUAL COUNT 79 Normal [facility] Comment on above: Performed By: #### L [id number], [id number] ####Civil Engineering Design Draftsperson: DEANN CURRAN ([id number])[facility] [place] ([facility])[address] OVALOCYTES PRESENCE IN BLOOD BY LIGHT MICROSCOPY Slight Abnormal (none) [facility] Comment on above: Performed By: #### L [id number], [id number] ####Civil Engineering Design Draftsperson: DEANN CURRAN ([id number])[facility] [place] ([facility])[address] PLATELET MORPHOLOGY IN BLOOD Normal Normal [facility] Comment on above: Performed By: #### L [id number], [id number] ####Civil Engineering Design Draftsperson: DEANN CURRAN ([id number])[facility] [place] ([facility])[address] [place] [address] [place] POIKILOCYTOSIS (PRESENCE) IN BLOOD BY LIGHT MICROSCOPY Slight Abnormal (none) [facility] Comment on above: Performed By: #### L [id number], [id number] ####Civil Engineering Design Draftsperson: DEANN CURRAN ([id number])[facility] [place] ([facility])[address] [place] [address] [place] SEGEMENTED NEUTROPHILS/100 LEUKOCYTES BY MANUAL COUNT 79 % Normal 38-82 [facility] Comment on above: Performed By: #### L [id number], [id number] ####Civil Engineering Design Draftsperson: DEANN CURRAN ([id number])[facility] ([facility])[address] [place] [address] Manual differential performe d Ql (Bld)on 11-12-2024 Anisocytosis Ql (Bld) Moderate Abnormal (none) [facility] Basophils (Bld) [#/Vol] 0.1 10*3/uL 0.0 - 0.2 10*3/uL [facility] Basophils Manual 1 [facility] Basophils/100 WBC (Bld) 1 % 0 - 2 % [facility] Cheri cells LM Ql (Bld) Rare Abnormal (none) [facility] Cells Counted Total (Bld) [#] 100 {cells} [facility] Differential Method Manual differential performed [facility] Eosinophils (Bld) [#/Vol] 0.3 10*3/uL 0.0 - 0.5 10*3/uL [facility] Eosinophils Manual 3 High 0 - 1 [facility] Eosinophils/100 WBC (Bld) 3 % 0 - 6 % [facility] Leukocyte morphology finding Nom (Bld) Normal [facility] Lymphocytes (Bld) [#/Vol] 1.3 10*3/uL 1.0 - 4.3 10*3/uL [facility] Lymphocytes Manual 12 [facility] Lymphocytes/100 WBC (Bld) 12 % Low 15 - 45 % [facility] Monocytes (Bld) [#/Vol] 0.5 10*3/uL 0.0 - 0.9 10*3/uL [facility] Monocytes Manual 5 [facility] Monocytes/100 WBC (Bld) 5 % 5 - 13 % [facility] Neutrophils (Bld) [#/Vol] 8.6 10*3/uL High 1.8 - 7.0 10*3/uL [facility] Neutrophils Manual 79 [facility] Ovalocytes LM Ql (Bld) Slight Abnormal (none) [facility] Platelet morphology finding Nom (Bld) Normal [facility] Poikilocytosis LM Ql (Bld) Slight Abnormal (none) [facility] Segmented neutrophils/100 WBC (Bld) 79 % 38 - 82 % [facility] WBC corrected for nucl RBC (Bld) [#/Vol] 10.9 10*3/uL High 3.6 - 10.7 10*3/uL [facility] Panel InformationOrdered By: Mona Huston on 11-12-2024 Interpretation and review of laboratory results Abnormal [facility] [id number] 11-11-2024 [id number] Normal [facility] [id number] Intermediate/SNF - Return [facility] [address] [facility] [id number] Patient/Family Choice Normal [facility] [id number] Normal [facility] BASIC METABOLIC PANELon Anion gap [Moles/Vol] 9 mmol/L Normal 3-13 [facility] Comment on above: Performed By: #### L [id number] ####Civil Engineering Design Draftsperson: PHILLY FRANCO ([id number])[facility])[address] [place] [address] Calcium [Mass/Vol] 7.3 mg/dL Low 8.8-10.0 [facility] Comment on above: Performed By: #### L AB15 ####Civil Engineering Design Draftsperson: PHILLY FRANCO ([phone])[facility] ([facility])[address] [place] [address] Chloride [Moles/Vol] 105 mmol/L Normal 98-107 [facility] Comment on above: Performed By: #### L AB15 ####Civil Engineering Design Draftsperson: PHILLY FRANCO ([phone])[facility])[address] [place] [address] CO2 [Moles/Vol] 24 mmol/L Normal 23-31 [facility] Comment on above: Performed By: #### L AB15 ####Civil Engineering Design Draftsperson: PHILLY [id number])[facility])[address] [place] [address] Creatinine [Mass/Vol] 4.23 mg/dL High 0.57-1.11 [facility] Comment on above: Performed By: #### L AB15 ####Civil Engineering Design Draftsperson: PHILLY [id number])[facility])[address] [place] [address] GLOMERULAR FILTRATION RATE ML/MIN/1.73 SQ M.PREDICTED 10.5 mL/min/1.73m*2 Low >60.0 [facility] Comment on above: Result Comment: Calc ulation based on the Chronic Kidney Disease Epidemiology Collaboration (CKD-EPI) equation refit without adjustment for race Performed By: #### L AB15 ####Civil Engineering Design Draftsperson: PHILLY FRANCO ([id number])[facility])[address] [place] [address] Glucose [Mass/Vol] 67 mg/dL Low 82-115 [facility] Comment on above: Performed By: #### L AB15 ####Civil Engineering Design Draftsperson: PHILLY FRANCO ([id number])[address] Potassium [Moles/Vol] 4.5 mmol/L Normal 3.5-5.1 [facility] Comment on above: Result Comment: [facility] potassium values may be up to 0.5 mmol/L lower than serum values. Performed By: #### L AB15 ####Civil Engineering Design Draftsperson: PHILLY FRANCO ([phone])[address] Sodium [Moles/Vol] 138 mmol/L Normal 136-145 [facility] Comment on above: Performed By: #### L AB15 ####Civil Engineering Design Draftsperson: PHILLY FRANCO ([id number])[address] Urea nitrogen [Mass/Vol] 26 mg/dL High 9-23 [facility] Comment on above: Performed By: #### L AB15 ####Civil Engineering Design Draftsperson: PHILLY [id number])[address] BLOOD TYPE AND SCREEN GELon 11-11-2024 ABO GROUPING O Normal [facility] Comment on above: Performed By: #### L [id number] ####Civil Engineering Design Draftsperson: PHILLY [id number])[facility] ([facility])[address] [place] [address] RH TYPE IN BLOOD Positive Normal [facility] Comment on above: Performed By: #### L [id number] ####Civil Engineering Design Draftsperson: PHILLY FRANCO ([phone])[facility] ([facility])[address] [place] [address] Basic metabolic 1998 panelon 11-11-2024 Anion gap [Moles/Vol] 9 mmol/L 3 - 13 mmol/L [facility] Calcium [Mass/Vol] 7.3 mg/dL Low 8.8 - 10. 0 mg/dL [facility] Chloride [Moles/Vol] 105 mmol/L 98 - 10 7 mmol/L [facility] CO2 [Moles/Vol] 24 mmol/L 23 - 31 mmol/L [facility] Creatinine [Mass/Vol] 4.23 mg/dL High 0.57 - 1.11 mg/dL [facility] GFR/1.73 sq M.predicted (S/P/Bld) [Vol rate/Area] 10.5 mL/min Low - PINF [facility] Glucose [Mass/Vol] 67 mg/dL Low 82 - 115 mg/dL [facility] Interpretation and review of laboratory results Abnormal [facility] Potassium [Moles/Vol] 4.5 mmol/L 3.5 - 5.1 mmol/L [facility] Sodium [Moles/Vol] 138 mmol/L 136 - 145 mmol/L [facility] Urea nitrogen [Mass/Vol] 26 mg/dL High 9 - 23 mg/dL [facility] Blood type and Crossmatch pa kojo (Bld)on 11-11-2024 ABO group Nom (Bld) O [facility] Blood group antibody screen GEL Ql Negative [facility] D Ag Ql (RBC) Positive [facility] CBC W Auto Differential pane l (Bld)on 11-11-2024 Basophils (Bld) [#/Vol] 0.1 10*3/uL 0.0 - 0.2 10*3/uL [facility] Basophils/100 WBC (Bld) 1 % 0.0 - 2.0 % [facility] Eosinophils (Bld) [#/Vol] 0.4 10*3/uL 0.0 - 0.5 10*3/uL [facility] Eosinophils/100 WBC (Bld) 3.1 % 0.0 - 6.0 % [facility] Erythrocyte distribution width (RBC) [Ratio] 17.1 % High 11.5 - 15.0 % [facility] Hematocrit (Bld) [Volume fraction] 21.8 % Low 35.0 - 47.0 % [facility] Hemoglobin (Bld) [Mass/Vol] 7 g/dL Low 11.7 - 16.0 g/dL [facility] Immature granulocytes (Bld) [#/Vol] 0.1 10*3/uL High NINF - 0.1 10*3/uL [facility] Immature granulocytes/100 WBC (Bld) 1.1 % 0.0 - 2.0 % [facility] Interpretation and review of laboratory results Abnormal [facility] Lymphocytes (Bld) [#/Vol] 1.8 10*3/uL 1.0 - 4.3 10*3/uL [facility] Lymphocytes/100 WBC (Bld) 14.3 % Low 15.0 - 45.0 % [facility] MCH (RBC) [Entitic mass] 29.3 pg 26.0 - 34.0 pg [facility] MCHC (RBC) [Mass/Vol] 32.1 % 30.5 - 36.0 % [facility] MCV (RBC) [Entitic vol] 91.2 fL 77.0 - 99.0 fL [facility] Monocytes (Bld) [#/Vol] 0.9 10*3/uL 0.0 - 0.9 10*3/uL [facility] Monocytes/100 WBC (Bld) 7.1 % 5.0 - 13.0 % [facility] Neutrophils (Bld) [#/Vol] 9.3 10*3/uL High 1.8 - 7.5 10*3/uL [facility] Neutrophils/100 WBC (Bld) 73.4 % 38.0 - 82.0 % [facility] Nucleated RBC/100 WBC (Bld) [Ratio] 0 % [facility] Platelet mean volume (Bld) [Entitic vol] 10.4 fL 9.0 - 12.7 fL [facility] Platelets (Bld) [#/Vol] 480 10*3/uL High 140 - 440 10*3/uL [facility] RBC (Bld) [#/Vol] 2.39 10*6/uL Low 3.80 - 5.2 0 10*6/uL [facility] WBC (Bld) [#/Vol] 12.6 10*3/uL High 3.6 - 10.7 10*3/uL [facility] CBC WITH AUTO DIFFERENTIALon 11-11-2024 Basophils (Bld) [#/Vol] 0.1 10*3/uL Normal 0.0-0.2 [facility] Comment on above: Performed By: #### L [id number] ####Civil Engineering Design Draftsperson: PHILLY FRANCO ([id number])[facility] ([facility])[address] [place] [address] Basophils/100 WBC (Bld) 1.0 % Normal 0.0-2.0 [facility] Comment on above: Performed By: #### L [id number] ####Civil Engineering Design Draftsperson: PHILLY FRANCO ([phone])[facility] ([facility])[address] [place] [address] Eosinophils (Bld) [#/Vol] 0.4 10*3/uL Normal 0.0-0.5 [facility] Comment on above: Performed By: #### L [id number] ####Civil Engineering Design Draftsperson: PHILLY FRANCO ([phone])[facility])[address] [place] [address] Eosinophils/100 WBC (Bld) 3.1 % Normal 0.0-6.0 [facility] Comment on above: Performed By: #### L [id number] ####Civil Engineering Design Draftsperson: PHILLY FRANCO ([id number])[facility])[address] [place] [address] Erythrocyte distribution width (RBC) [Ratio] 17.1 % High 11.5-15.0 [facility] Comment on above: Performed By: #### L [id number] ####Civil Engineering Design Draftsperson: PHILLY FRANCO ([id number])[facility])[address] [place] [address] Hematocrit (Bld) [Volume fraction] 21.8 % Low 35.0-47.0 [facility] Comment on above: Performed By: #### L [id number] ####Civil Engineering Design Draftsperson: PHILLY FRANCO ([id number])[facility])[address] [place] [address] Hemoglobin (Bld) [Mass/Vol] 7.0 g/dL Low 11.7-16.0 [facility] Comment on above: Performed By: #### L [id number] ####Civil Engineering Design Draftsperson: PHILLY FRANCO ([id number])[facility])[address] [place] [address] IMMATURE GRANS % 1.1 % Normal 0.0-2.0 [facility] Comment on above: Performed By: #### L [id number] ####Civil Engineering Design Draftsperson: PHILLY FRANCO ([id number])[address] IMMATURE GRANS ABSOLUTE 0.1 10*3/uL High <0.1 [facility] Comment on above: Performed By: #### L [id number] ####Civil Engineering Design Draftsperson: PHILLY FRANCO ([phone])[facility])[address] [place] [address] Lymphocytes (Bld) [#/Vol] 1.8 10*3/uL Normal 1.0-4.3 [facility] Comment on above: Performed By: #### L [id number] ####Civil Engineering Design Draftsperson: PHILLY FRANCO ([id number])[facility])[address] [place] [address] Lymphocytes/100 WBC (Bld) 14.3 % Low 15.0-45.0 [facility] Comment on above: Performed By: #### L [id number] ####Civil Engineering Design Draftsperson: PHILLY FRANCO ([id number])[facility])[address] [place] [address] MCH (RBC) [Entitic mass] 29.3 pg Normal 26.0-34.0 [facility] Comment on above: Performed By: #### L [id number] ####Civil Engineering Design Draftsperson: PHILLY FRANCO ([phone])[facility] ([facility])[address] [place] [address] MCHC 32.1 % Normal 30.5-36.0 [facility] Comment on above: Performed By: #### L [id number] ####Civil Engineering Design Draftsperson: PHILLY FRANCO ([id number])[facility] ([facility])[address] [place] [address] MCV (RBC) [Entitic vol] 91.2 fL Normal 77.0-99.0 S [facility] Comment on above: Performed By: #### L [id number] ####Civil Engineering Design Draftsperson: PHILLY FRANCO ([id number])[facility] ([facility])[address] [place] [address] Monocytes (Bld) [#/Vol] 0.9 10*3/uL Normal 0.0-0.9 [facility] Comment on above: Performed By: #### L [id number] ####Civil Engineering Design Draftsperson: PHILLY FRANCO ([id number])[facility] ([facility])[address] [place] [address] Monocytes/100 WBC (Bld) 7.1 % Normal 5.0-13.0 S [facility] Comment on above: Performed By: #### L [id number] ####Civil Engineering Design Draftsperson: PHILLY FRANCO ([id number])[facility] ([facility])[address] [place] [address] NEUTROPHILS ABSOLUTE 9.3 10*3/uL High 1.8-7.5 [facility] Comment on above: Performed By: #### L [id number] ####Civil Engineering Design Draftsperson: PHILLY FRANCO ([phone])[facility] ([facility])[address] [place] [address] Neutrophils/100 WBC (Bld) 73.4 % Normal 38.0-82.0 [facility] Comment on above: Performed By: #### L [id number] ####Civil Engineering Design Draftsperson: PHILLY FRANCO ([id number])[facility] ([facility])[address] [place] [address] [place] NRBC 0.0 /100 WBCs Normal 0.0-2.0 [facility] Comment on above: Performed By: #### L [id number] ####Civil Engineering Design Draftsperson: PHILLY FRANCO ([id number])[facility])[address] [place] [address] Platelet mean volume (Bld) [Entitic vol] 10.4 fL Normal 9.0-12.7 [facility] Comment on above: Performed By: #### L [id number] ####Civil Engineering Design Draftsperson: PHILLY FRANCO ([id number])[facility] ([facility])[address] [place] [address] Platelets (Bld) [#/Vol] 480 10*3/uL High 140-440 [facility] Comment on above: Performed By: #### L [id number] ####Civil Engineering Design Draftsperson: PHILLY FRANCO ([id number])[facility] ([facility])[address] [place] [address] RBC (Bld) [#/Vol] 2.39 10*6/uL Low 3.80-5.20 [facility] Comment on above: Performed By: #### L [id number] ####Civil Engineering Design Draftsperson: PHILLY FRANCO ([id number])[facility] ([facility])[address] [place] [address] WBC (Bld) [#/Vol] 12.6 10*3/uL High 3.6-10.7 [facility] Comment on above: Performed By: #### L [id number] ####Civil Engineering Design Draftsperson: PHILLY FRANCO ([id number])[facility] ([facility])[address] [place] [address] Nursing Noteon 11-11-2024 Nursing Note [facility] to [facility] cot Normal [facility] Nursing Note Called report to raven sprague at [facility]. Pt brother at bedside aware of dc. Normal [facility] Nursing Note Normal [facility] Progress Noteon 11-11-2024 Progress Note Normal [facility] Progress Note Normal [facility] BASIC METABOLIC PANELon 08-0 Anion gap [Moles/Vol] 5 mmol/L Normal 3-13 [facility] Comment on above: Performed By: #### L [id number] ####Civil Engineering Design Draftsperson: PHILLY FRANCO ([id number])[facility] ([facility])[address] [place] [address] Calcium [Mass/Vol] 7.6 mg/dL Low 8.8-10.0 [facility] Comment on above: Performed By: #### L [id number] ####Civil Engineering Design Draftsperson: PHILLY FRANCO ([id number])[facility])[address] [place] [address] Chloride [Moles/Vol] 103 mmol/L Normal 98-107 [facility] Comment on above: Performed By: #### L [id number] ####Civil Engineering Design Draftsperson: PHILLY FRANCO ([id number])[facility])[address] [place] [address] CO2 [Moles/Vol] 26 mmol/L Normal 23-31 [facility] Comment on above: Performed By: #### L [id number] ####Civil Engineering Design Draftsperson: PHILLY FRANCO ([id number])[facility])[address] [place] [address] Creatinine [Mass/Vol] 2.81 mg/dL High 0.57-1.11 [facility] Comment on above: Performed By: #### L [id number] ####Civil Engineering Design Draftsperson: PHILLY FRANCO ([id number])[facility] ([facility])[address] [place] [address] [place] GLOMERULAR FILTRATION RATE ML/MIN/1.73 SQ M.PREDICTED 17.1 mL/min/1.73m*2 Low >60.0 [facility] Comment on above: Result Comment: Calc ulation based on the Chronic Kidney Disease Epidemiology Collaboration (CKD-EPI) equation refit without adjustment for race Performed By: #### L [id number] ####Civil Engineering Design Draftsperson: PHILLY FRANCO ([id number])[facility])[address] [place] [address] [place] Glucose [Mass/Vol] 67 mg/dL Low 82-115 [facility] Comment on above: Performed By: #### L [id number] ####Civil Engineering Design Draftsperson: PHILYL FRANCO ([phone])[facility])[address] [place] [address] Potassium [Moles/Vol] 4.0 mmol/L Normal 3.5-5.1 [facility] Comment on above: Result Comment: [facility] potassium values may be up to 0.5 mmol/L lower than serum values. Performed By: #### L [id number] ####Civil Engineering Design Draftsperson: PHILLY FRANCO ([id number])[facility] ([facility])[address] [place] [address] Sodium [Moles/Vol] 134 mmol/L Low 136-145 [facility] Comment on above: Performed By: #### L [id number] ####Civil Engineering Design Draftsperson: PHILLY FRANCO ([id number])[facility] ([facility])[address] [place] [address] Urea nitrogen [Mass/Vol] 16 mg/dL Normal 9-23 [facility] Comment on above: Performed By: #### L [id number] ####Civil Engineering Design Draftsperson: PHILLY FRANCO ([id number])[facility])[address] [place] [address] Basic metabolic 1998 panelon 11-10-2024 Anion gap [Moles/Vol] 5 mmol/L 3 - 13 mmol/L [facility] Calcium [Mass/Vol] 7.6 mg/dL Low 8.8 - 10. 0 mg/dL [facility] Chloride [Moles/Vol] 103 mmol/L 98 - 10 7 mmol/L [facility] CO2 [Moles/Vol] 26 mmol/L 23 - 31 mmol/L [facility] Creatinine [Mass/Vol] 2.81 mg/dL High 0.57 - 1.11 mg/dL [facility] GFR/1.73 sq M.predicted (S/P/Bld) [Vol rate/Area] 17.1 mL/min Low - PINF [facility] Glucose [Mass/Vol] 67 mg/dL Low 82 - 115 mg/dL [facility] Interpretation and review of laboratory results Abnormal [facility] Potassium [Moles/Vol] 4 mmol/L 3.5 - 5.1 mmol/L [facility] Sodium [Moles/Vol] 134 mmol/L Low 136 - 145 mmol/L [facility] Urea nitrogen [Mass/Vol] 16 mg/dL 9 - 23 mg/dL [facility] CBC W Auto Differential pane l (Bld)on 11-10-2024 Basophils (Bld) [#/Vol] 0.1 10*3/uL 0.0 - 0.2 10*3/uL [facility] Basophils/100 WBC (Bld) 1 % 0.0 - 2.0 % [facility] Eosinophils (Bld) [#/Vol] 0.4 10*3/uL 0.0 - 0.5 10*3/uL [facility] Eosinophils/100 WBC (Bld) 3.1 % 0.0 - 6.0 % [facility] Erythrocyte distribution width (RBC) [Ratio] 16.9 % High 11.5 - 15.0 % [facility] Hematocrit (Bld) [Volume fraction] 21.6 % Low 35.0 - 47.0 % [facility] Hemoglobin (Bld) [Mass/Vol] 7 g/dL Low 11.7 - 16.0 g/dL [facility] Immature granulocytes (Bld) [#/Vol] 0.2 10*3/uL High NINF - 0.1 10*3/uL [facility] Immature granulocytes/100 WBC (Bld) 1.1 % 0.0 - 2.0 % [facility] Interpretation and review of laboratory results Abnormal [facility] Lymphocytes (Bld) [#/Vol] 2 10*3/uL 1.0 - 4.3 10*3/uL [facility] Lymphocytes/100 WBC (Bld) 15.1 % 15.0 - 45.0 % [facility] MCH (RBC) [Entitic mass] 28.8 pg 26.0 - 34.0 pg [facility] MCHC (RBC) [Mass/Vol] 32.4 % 30.5 - 36.0 % [facility] MCV (RBC) [Entitic vol] 88.9 fL 77.0 - 99.0 fL [facility] Monocytes (Bld) [#/Vol] 1.1 10*3/uL High 0.0 - 0.9 10*3/uL [facility] Monocytes/100 WBC (Bld) 8.1 % 5.0 - 13.0 % [facility] Neutrophils (Bld) [#/Vol] 9.4 10*3/uL High 1.8 - 7.5 10*3/uL [facility] Neutrophils/100 WBC (Bld) 71.6 % 38.0 - 82.0 % [facility] Nucleated RBC/100 WBC (Bld) [Ratio] 0 % [facility] Platelet mean volume (Bld) [Entitic vol] 10.4 fL 9.0 - 12.7 fL [facility] Platelets (Bld) [#/Vol] 382 10*3/uL 140 - 440 10*3/uL [facility] RBC (Bld) [#/Vol] 2.43 10*6/uL Low 3.80 - 5.2 0 10*6/uL [facility] WBC (Bld) [#/Vol] 13.2 10*3/uL High 3.6 - 10.7 10*3/uL [facility] CBC WITH AUTO DIFFERENTIALon 11-10-2024 Basophils (Bld) [#/Vol] 0.1 10*3/uL Normal 0.0-0.2 [facility] Comment on above: Performed By: #### L [id number] ####Civil Engineering Design Draftsperson: PHILLY FRANCO ([id number])[facility])[address] [place] [address] Basophils/100 WBC (Bld) 1.0 % Normal 0.0-2.0 S [facility] Comment on above: Performed By: #### L [id number] ####Civil Engineering Design Draftsperson: PHILLY FRANCO ([id number])[facility] ([facility])[address] [place] [address] [place] Eosinophils (Bld) [#/Vol] 0.4 10*3/uL Normal 0.0-0.5 [facility] Comment on above: Performed By: #### L [id number] ####Civil Engineering Design Draftsperson: PHILLY FRANCO ([id number])[facility] ([facility])[address] [place] [address] [place] Eosinophils/100 WBC (Bld) 3.1 % Normal 0.0-6.0 [facility] Comment on above: Performed By: #### L [id number] ####Civil Engineering Design Draftsperson: PHILLY FRANCO ([id number])[address] Erythrocyte distribution width (RBC) [Ratio] 16.9 % High 11.5-15.0 [facility] Comment on above: Performed By: #### L [id number] ####Civil Engineering Design Draftsperson: PHILLY FRANCO ([id number])[address] Hematocrit (Bld) [Volume fraction] 21.6 % Low 35.0-47.0 [facility] Comment on above: Performed By: #### L [id number] ####Civil Engineering Design Draftsperson: PHILLY FRANCO ([id number])[address] Hemoglobin (Bld) [Mass/Vol] 7.0 g/dL Low 11.7-16.0 [facility] Comment on above: Performed By: #### L [id number] ####Civil Engineering Design Draftsperson: PHILLY FRANCO ([id number])[address] IMMATURE GRANS % 1.1 % Normal 0.0-2.0 [facility] Comment on above: Performed By: #### L [id number] ####Civil Engineering Design Draftsperson: PHILLY FRANCO ([phone])[address] IMMATURE GRANS ABSOLUTE 0.2 10*3/uL High <0.1 [facility] Comment on above: Performed By: #### L [id number] ####Civil Engineering Design Draftsperson: PHILLY FRANCO ([phone])[address] Lymphocytes (Bld) [#/Vol] 2.0 10*3/uL Normal 1.0-4.3 [facility] Comment on above: Performed By: #### L [id number] ####Civil Engineering Design Draftsperson: PHILLY FRANCO ([id number])[facility])[address] [place] [address] Lymphocytes/100 WBC (Bld) 15.1 % Normal 15.0-45.0 [facility] Comment on above: Performed By: #### L [id number] ####Civil Engineering Design Draftsperson: PHILLY FRANCO ([id number])[facility])[address] [place] [address] MCH (RBC) [Entitic mass] 28.8 pg Normal 26.0-34.0 [facility] Comment on above: Performed By: #### L [id number] ####Civil Engineering Design Draftsperson: PHILLY FRANCO ([id number])[facility])[address] [place] [address] MCHC 32.4 % Normal 30.5-36.0 [facility] Comment on above: Performed By: #### L [id number] ####Civil Engineering Design Draftsperson: PHILLY FRANCO ([id number])[facility])[address] [place] [address] MCV (RBC) [Entitic vol] 88.9 fL Normal 77.0-99.0 S [facility] Comment on above: Performed By: #### L [id number] ####Civil Engineering Design Draftsperson: PHILLY FRANCO ([id number])[facility])[address] [place] [address] Monocytes (Bld) [#/Vol] 1.1 10*3/uL High 0.0-0.9 [facility] Comment on above: Performed By: #### L [id number] ####Civil Engineering Design Draftsperson: PHILLY FRANCO ([id number])[facility])[address] [place] [address] Monocytes/100 WBC (Bld) 8.1 % Normal 5.0-13.0 [facility] Comment on above: Performed By: #### L [id number] ####Civil Engineering Design Draftsperson: PHILLY FRANCO ([id number])[facility])[address] [place] [address] [place] NEUTROPHILS ABSOLUTE 9.4 10*3/uL High 1.8-7.5 [facility] Comment on above: Performed By: #### L [id number] ####Civil Engineering Design Draftsperson: PHILLY FRANCO ([id number])[facility] ([facility])[address] [place] [address] Neutrophils/100 WBC (Bld) 71.6 % Normal 38.0-82.0 [facility] Comment on above: Performed By: #### L [id number] ####Civil Engineering Design Draftsperson: PHILLY FRANCO ([id number])[facility] ([facility])[address] [place] [address] NRBC 0.0 /100 WBCs Normal 0.0-2.0 [facility] Comment on above: Performed By: #### L [id number] ####Civil Engineering Design Draftsperson: PHILLY FRANCO ([id number])[facility] ([facility])[address] [place] [address] Platelet mean volume (Bld) [Entitic vol] 10.4 fL Normal 9.0-12.7 [facility] Comment on above: Performed By: #### L [id number] ####Civil Engineering Design Draftsperson: PHILLY FRANCO ([id number])[facility] ([facility])[address] [place] [address] Platelets (Bld) [#/Vol] 382 10*3/uL Normal 140-440 [facility] Comment on above: Performed By: #### L [id number] ####Civil Engineering Design Draftsperson: PHILLY FRANCO ([id number])[facility] ([facility])[address] [place] [address] [place] RBC (Bld) [#/Vol] 2.43 10*6/uL Low 3.80-5.20 [facility] Comment on above: Performed By: #### L [id number] ####Civil Engineering Design Draftsperson: PHILLY FRANCO ([phone])[facility] ([facility])[address] [place] [address] [place] WBC (Bld) [#/Vol] 13.2 10*3/uL High 3.6-10.7 [facility] Comment on above: Performed By: #### L [id number] ####Civil Engineering Design Draftsperson: PHILLY FRANCO ([id number])[facility])[address] [place] [address] Nursing Noteon 11-10-2024 Nursing Note Normal [facility] Progress Noteon 11-10-2024 Progress Note Normal [facility] Progress Note Normal [facility] Progress Note Normal [facility] Progress Note Normal [facility] Progress Note Normal [facility] BASIC METABOLIC PANELon 08 Anion gap [Moles/Vol] 8 mmol/L Normal 3-13 [facility] Comment on above: Performed By: #### L [id number] ####Civil Engineering Design Draftsperson: PHILLY FRANCO ([id number])[facility] ([facility])[address] [place] [address] Calcium [Mass/Vol] 7.4 mg/dL Low 8.8-10.0 [facility] Comment on above: Performed By: #### L AB15 ####Civil Engineering Design Draftsperson: PHILLY FRANCO ([phone])[facility] ([facility])[address] [place] [address] Chloride [Moles/Vol] 102 mmol/L Normal 98-107 [facility] Comment on above: Performed By: #### L [id number] ####Civil Engineering Design Draftsperson: PHILLY FRANCO ([id number])[facility] ([facility])[address] [place] [address] CO2 [Moles/Vol] 24 mmol/L Normal 23-31 [facility] Comment on above: Performed By: #### L AB15 ####Civil Engineering Design Draftsperson: PHILLY FRANCO ([id number])[facility] ([facility])[address] [place] [address] Creatinine [Mass/Vol] 4.02 mg/dL High 0.57-1.11 [facility] Comment on above: Performed By: #### L AB15 ####Civil Engineering Design Draftsperson: PHILLY FRANCO ([id number])[facility] [address] GLOMERULAR FILTRATION RATE ML/MIN/1.73 SQ M.PREDICTED 11.2 mL/min/1.73m*2 Low >60.0 [facility] Comment on above: Result Comment: Calc ulation based on the Chronic Kidney Disease Epidemiology Collaboration (CKD-EPI) equation refit without adjustment for race Performed By: #### L [id number] ####Civil Engineering Design Draftsperson: PHILLY FRANCO ([id number])[address] Glucose [Mass/Vol] 68 mg/dL Low 82-115 [facility] Comment on above: Performed By: #### L AB15 ####Civil Engineering Design Draftsperson: PHILLY FRANCO ([id number])[address] Potassium [Moles/Vol] 4.5 mmol/L Normal 3.5-5.1 [facility] Comment on above: Result Comment: [facility] potassium values may be up to 0.5 mmol/L lower than serum values. Performed By: #### L AB15 ####Civil Engineering Design Draftsperson: PHILLY FRANCO ([id number])[address] Sodium [Moles/Vol] 134 mmol/L Low 136-145 [facility] Comment on above: Performed By: #### L AB15 ####Civil Engineering Design Draftsperson: PHILLY FRANCO ([id number])[address] Urea nitrogen [Mass/Vol] 24 mg/dL High 9-23 [facility] Comment on above: Performed By: #### L AB15 ####Civil Engineering Design Draftsperson: PHILLY [id number])[address] BLOOD TYPE AND SCREEN GELon 11-09-2024 ABO GROUPING O Normal [facility] Comment on above: Performed By: #### L [id number] ####Civil Engineering Design Draftsperson: PHILLY [id number])[facility] ([facility])[address] RH TYPE IN BLOOD Positive Normal [facility] Comment on above: Performed By: #### L [id number] ####Civil Engineering Design Draftsperson: PHILLY FRANCO ([id number])[facility] ([facility])[address] [place] [address] Basic metabolic 1998 panelon 11-09-2024 Anion gap [Moles/Vol] 8 mmol/L 3 - 13 mmol/L [facility] Calcium [Mass/Vol] 7.4 mg/dL Low 8.8 - 10. 0 mg/dL [facility] Chloride [Moles/Vol] 102 mmol/L 98 - 10 7 mmol/L [facility] CO2 [Moles/Vol] 24 mmol/L 23 - 31 mmol/L [facility] Creatinine [Mass/Vol] 4.02 mg/dL High 0.57 - 1.11 mg/dL [facility] GFR/1.73 sq M.predicted (S/P/Bld) [Vol rate/Area] 11.2 mL/min Low - PINF [facility] Glucose [Mass/Vol] 68 mg/dL Low 82 - 115 mg/dL [facility] Interpretation and review of laboratory results Abnormal [facility] Potassium [Moles/Vol] 4.5 mmol/L 3.5 - 5.1 mmol/L [facility] Sodium [Moles/Vol] 134 mmol/L Low 136 - 145 mmol/L [facility] Urea nitrogen [Mass/Vol] 24 mg/dL High 9 - 23 mg/dL [facility] Blood type and Crossmatch fredi kojo (Bld)on 11-09-2024 ABO group Nom (Bld) O [facility] Blood group antibody screen GEL Ql Negative [facility] D Ag Ql (RBC) Positive [facility] CBC W Auto Differential pane l (Bld)Ordered By: Yogi Stanley on 11-09-2024 Basophils (Bld) [#/Vol] 0.2 10*3/uL 0.0 - 0.2 10*3/uL [facility] Basophils/100 WBC (Bld) 1 % 0.0 - 2.0 % [facility] Eosinophils (Bld) [#/Vol] 0.4 10*3/uL 0.0 - 0.5 10*3/uL [facility] Eosinophils/100 WBC (Bld) 2.7 % 0.0 - 6.0 % [facility] Erythrocyte distribution width (RBC) [Ratio] 16.7 % High 11.5 - 15.0 % [facility] Hematocrit (Bld) [Volume fraction] 21.4 % Low 35.0 - 47.0 % [facility] Hemoglobin (Bld) [Mass/Vol] 6.8 g/dL Critically low 11.7 - 16.0 g/dL [facility] Immature granulocytes (Bld) [#/Vol] 0.1 10*3/uL High NINF - 0.1 10*3/uL [facility] Immature granulocytes/100 WBC (Bld) 0.8 % 0.0 - 2.0 % [facility] Interpretation and review of laboratory results Abnormal [facility] Lymphocytes (Bld) [#/Vol] 2.2 10*3/uL 1.0 - 4.3 10*3/uL [facility] Lymphocytes/100 WBC (Bld) 13.5 % Low 15.0 - 45.0 % [facility] MCH (RBC) [Entitic mass] 28.3 pg 26.0 - 34.0 pg [facility] MCHC (RBC) [Mass/Vol] 31.8 % 30.5 - 36.0 % [facility] MCV (RBC) [Entitic vol] 89.2 fL 77.0 - 99.0 fL [facility] Monocytes (Bld) [#/Vol] 1 10*3/uL High 0.0 - 0.9 10*3/uL [facility] Monocytes/100 WBC (Bld) 6.1 % 5.0 - 13.0 % [facility] Neutrophils (Bld) [#/Vol] 12.1 10*3/uL High 1.8 - 7.5 10*3/uL [facility] Neutrophils/100 WBC (Bld) 75.9 % 38.0 - 82.0 % [facility] Nucleated RBC/100 WBC (Bld) [Ratio] 0 % [facility] Platelet mean volume (Bld) [Entitic vol] 10.1 fL 9.0 - 12.7 fL [facility] Platelets (Bld) [#/Vol] 414 10*3/uL 140 - 440 10*3/uL [facility] RBC (Bld) [#/Vol] 2.4 10*6/uL Low 3.80 - 5.2 0 10*6/uL [facility] WBC (Bld) [#/Vol] 16 10*3/uL High 3.6 - 10.7 10*3/uL [facility] CBC WITH AUTO DIFFERENTIALon 11-09-2024 Basophils (Bld) [#/Vol] 0.2 10*3/uL Normal 0.0-0.2 [facility] Comment on above: Performed By: #### L [id number] ####Civil Engineering Design Draftsperson: PHILLY FRANCO ([id number])[facility] ([facility])[address] [place] [address] Basophils/100 WBC (Bld) 1.0 % Normal 0.0-2.0 S [facility] Comment on above: Performed By: #### L [id number] ####Civil Engineering Design Draftsperson: PHILLY FRANCO ([id number])[facility])[address] [place] [address] Eosinophils (Bld) [#/Vol] 0.4 10*3/uL Normal 0.0-0.5 [facility] Comment on above: Performed By: #### L [id number] ####Civil Engineering Design Draftsperson: PHILLY FRANCO ([id number])[facility])[address] [place] [address] Eosinophils/100 WBC (Bld) 2.7 % Normal 0.0-6.0 [facility] Comment on above: Performed By: #### L [id number] ####Civil Engineering Design Draftsperson: PHILLY FRANCO ([id number])[facility])[address] [place] [address] Erythrocyte distribution width (RBC) [Ratio] 16.7 % High 11.5-15.0 [facility] Comment on above: Performed By: #### L [id number] ####Civil Engineering Design Draftsperson: PHILLY FRANCO ([phone])[facility])[address] [place] [address] Hematocrit (Bld) [Volume fraction] 21.4 % Low 35.0-47.0 [facility] Comment on above: Performed By: #### L [id number] ####Civil Engineering Design Draftsperson: PHILLY FRANCO ([id number])[facility])[address] [place] [address] Hemoglobin (Bld) [Mass/Vol] 6.8 g/dL Critically low 11.7-16.0 [facility] Comment on above: Performed By: #### L [id number] ####Civil Engineering Design Draftsperson: PHILLY FRANCO ([id number])[facility])[address] [place] [address] IMMATURE GRANS % 0.8 % Normal 0.0-2.0 [facility] Comment on above: Performed By: #### L [id number] ####Civil Engineering Design Draftsperson: PHILLY FRANCO ([id number])[address] IMMATURE GRANS ABSOLUTE 0.1 10*3/uL High <0.1 [facility] Comment on above: Performed By: #### L [id number] ####Civil Engineering Design Draftsperson: PHILLY FRANCO ([id number])[facility])[address] [place] [address] Lymphocytes (Bld) [#/Vol] 2.2 10*3/uL Normal 1.0-4.3 [facility] Comment on above: Performed By: #### L [id number] ####Civil Engineering Design Draftsperson: PHILLY FRANCO ([id number])[facility])[address] [place] [address] Lymphocytes/100 WBC (Bld) 13.5 % Low 15.0-45.0 [facility] Comment on above: Performed By: #### L [id number] ####Civil Engineering Design Draftsperson: PHILLY FRANCO ([id number])[address] MCH (RBC) [Entitic mass] 28.3 pg Normal 26.0-34.0 [facility] Comment on above: Performed By: #### L [id number] ####Civil Engineering Design Draftsperson: PHILLY FRANCO ([id number])[facility] ([facility])[address] [place] [address] MCHC 31.8 % Normal 30.5-36.0 [facility] Comment on above: Performed By: #### L [id number] ####Civil Engineering Design Draftsperson: PHILLY FRANCO ([id number])[facility] ([facility])[address] [place] [address] MCV (RBC) [Entitic vol] 89.2 fL Normal 77.0-99.0 S [facility] Comment on above: Performed By: #### L [id number] ####Civil Engineering Design Draftsperson: PHILLY FRANCO ([id number])[facility] ([facility])[address] [place] [address] Monocytes (Bld) [#/Vol] 1.0 10*3/uL High 0.0-0.9 [facility] Comment on above: Performed By: #### L [id number] ####Civil Engineering Design Draftsperson: PHILLY FRANCO ([phone])[facility] ([facility])[address] [place] [address] Monocytes/100 WBC (Bld) 6.1 % Normal 5.0-13.0 [facility] Comment on above: Performed By: #### L [id number] ####Civil Engineering Design Draftsperson: PHILLY FRANCO ([id number])[facility] ([facility])[address] [place] [address] NEUTROPHILS ABSOLUTE 12.1 10*3/uL High 1.8-7.5 [facility] Comment on above: Performed By: #### L [id number] ####Civil Engineering Design Draftsperson: PHILLY FRANCO ([id number])[facility] ([facility])[address] [place] [address] Neutrophils/100 WBC (Bld) 75.9 % Normal 38.0-82.0 [facility] Comment on above: Performed By: #### L [id number] ####Civil Engineering Design Draftsperson: PHILLY FRANCO ([id number])[facility] ([facility])[address] [place] [address] NRBC 0.0 /100 WBCs Normal 0.0-2.0 [facility] Comment on above: Performed By: #### L [id number] ####Civil Engineering Design Draftsperson: PHILLY FRANCO ([id number])[facility])[address] [place] [address] Platelet mean volume (Bld) [Entitic vol] 10.1 fL Normal 9.0-12.7 [facility] Comment on above: Performed By: #### L [id number] ####Civil Engineering Design Draftsperson: PHILLY FRANCO ([id number])[facility])[address] [place] [address] Platelets (Bld) [#/Vol] 414 10*3/uL Normal 140-440 [facility] Comment on above: Performed By: #### L [id number] ####Civil Engineering Design Draftsperson: PHILLY FRANCO ([id number])[facility])[address] [place] [address] RBC (Bld) [#/Vol] 2.40 10*6/uL Low 3.80-5.20 [facility] Comment on above: Performed By: #### L [id number] ####Civil Engineering Design Draftsperson: PHILLY FRANCO ([id number])[facility])[address] [place] [address] WBC (Bld) [#/Vol] 16.0 10*3/uL High 3.6-10.7 [facility] Comment on above: Performed By: #### L [id number] ####Civil Engineering Design Draftsperson: PHILLY FRANCO ([id number])[facility])[address] [place] [address] HEMOGLOBIN AND HEMATOCRIT, B LOODon 11-09-2024 Hematocrit (Bld) [Volume fraction] 25.9 % Low 35.0-47.0 [facility] Comment on above: Order Comment: Recom mend 1 hour post transfusion Performed By: #### L [id number] ####Civil Engineering Design Draftsperson: PHILLY FRANCO ([id number])[facility])[address] [place] [address] Hemoglobin (Bld) [Mass/Vol] 8.6 g/dL Low 11.7-16.0 [facility] Comment on above: Order Comment: Recom mend 1 hour post transfusion Performed By: #### L [id number] ####Civil Engineering Design Draftsperson: PHILLY FRANCO ([phone])[facility] ([address] Hemoglobin (Bld) [Mass/Vol]O rdered By: Ct Hays on 11-09-2024 Hematocrit (Bld) [Volume fraction] 25.9 % Low 35.0 - 47.0 % [facility] Interpretation and review of laboratory results Abnormal [facility] - Hematology and Cell countsOrdered By: Ct Hays on 11-09-2024 Hemoglobin (Bld) [Mass/Vol] 8.6 g/dL Low 11.7 - 16.0 g/dL [facility] No Panel Informationon 11-09 Blood Expiration Date [id number] S [facility] Crossmatch interpretation COMP [facility] Dispense Status Transfused [facility] Product Blood Type 5100 [facility] PRODUCT CODE [id number] [facility] Unit ABO O [facility] Unit Number [id number] [facility] RH Positive [facility] Volume 300 mL [facility] Blood Expiration Date [id number] S [facility] Crossmatch interpretation COMP [facility] Dispense Status Released from Crossmatch [facility] Dispense Status Transfused [facility] Product Blood Type 5100 [facility] PRODUCT CODE [id number] [facility] PRODUCT CODE [id number] [facility] ABO O [facility] Unit Number [id number] [facility] Number [id number] [facility] RH Positive [facility] Volume 300 mL [facility] Nursing Noteon 11-09-2024 Nursing Note Normal [facility] Nursing Note Contacted Dr. Ciro rouse regarding pt screaming out in pain and having bit of confusion. Pt dressing saturated and changed again. Anjel H&H. Dialysis at bedside. Normal [facility] Nursing Note Normal [facility] Progress Noteon 11-09-2024 Progress Note Normal [facility] Progress Note Normal [facility] Progress Note Normal [facility] Progress Note Normal [facility] [id number] 11-08-2024 [id number] Auth obtained to return to [facility] until 11/11. updated. RN reports continued bleeding, low BS and pain this am. Will follow. Normal [facility] BASIC METABOLIC PANELon 08 Anion gap [Moles/Vol] 6 mmol/L Normal 3-13 [facility] Comment on above: Performed By: #### L [id number] ####Civil Engineering Design Draftsperson: PHILLY FRANCO ([id number])[facility])[address] [place] [address] Calcium [Mass/Vol] 7.2 mg/dL Low 8.8-10.0 [facility] Comment on above: Performed By: #### L AB15 ####Civil Engineering Design Draftsperson: PHILLY FRANCO ([id number])[facility] ([facility])[address] [place] [address] [place] Chloride [Moles/Vol] 103 mmol/L Normal 98-107 [facility] Comment on above: Performed By: #### L AB15 ####Civil Engineering Design Draftsperson: PHILLY FRANCO ([id number])[facility] ([facility])[address] [place] [address] [place] CO2 [Moles/Vol] 26 mmol/L Normal 23-31 [facility] Comment on above: Performed By: #### L AB15 ####Civil Engineering Design Draftsperson: PHILLY FRANCO ([id number])[facility] ([facility])[address] [place] [address] [place] Creatinine [Mass/Vol] 2.91 mg/dL High 0.57-1.11 [facility] Comment on above: Performed By: #### L AB15 ####Civil Engineering Design Draftsperson: PHILLY FRANCO ([id number])[facility] ([facility])[address] [place] [address] [place] GLOMERULAR FILTRATION RATE ML/MIN/1.73 SQ M.PREDICTED 16.4 mL/min/1.73m*2 Low >60.0 [facility] Comment on above: Result Comment: Calc ulation based on the Chronic Kidney Disease Epidemiology Collaboration (CKD-EPI) equation refit without adjustment for race Performed By: #### L AB15 ####Civil Engineering Design Draftsperson: PHILLY FRANCO ([id number])[facility])[address] [place] [address] Glucose [Mass/Vol] 67 mg/dL Low 82-115 [facility] Comment on above: Performed By: #### L AB15 ####Civil Engineering Design Draftsperson: PHILLY FRANCO ([id number])[facility])[address] [place] [address] Potassium [Moles/Vol] 4.0 mmol/L Normal 3.5-5.1 [facility] Comment on above: Result Comment: [facility] potassium values may be up to 0.5 mmol/L lower than serum values. Performed By: #### L AB15 ####Civil Engineering Design Draftsperson: PHILLY FRANCO ([id number])[facility] ([facility])[address] [place] [address] Sodium [Moles/Vol] 135 mmol/L Low 136-145 [facility] Comment on above: Performed By: #### L AB15 ####Civil Engineering Design Draftsperson: PHILLY FRANCO ([id number])[address] Urea nitrogen [Mass/Vol] 18 mg/dL Normal 9-23 [facility] Comment on above: Performed By: #### L AB15 ####Civil Engineering Design Draftsperson: PHILLY FRANCO ([phone])[facility])[address] [place] [address] Basic metabolic 1998 panelon 11-08-2024 Anion gap [Moles/Vol] 6 mmol/L 3 - 13 mmol/L [facility] Calcium [Mass/Vol] 7.2 mg/dL Low 8.8 - 10. 0 mg/dL [facility] Chloride [Moles/Vol] 103 mmol/L 98 - 10 7 mmol/L [facility] CO2 [Moles/Vol] 26 mmol/L 23 - 31 mmol/L [facility] Creatinine [Mass/Vol] 2.91 mg/dL High 0.57 - 1.11 mg/dL [facility] GFR/1.73 sq M.predicted (S/P/Bld) [Vol rate/Area] 16.4 mL/min Low - PINF [facility] Glucose [Mass/Vol] 67 mg/dL Low 82 - 115 mg/dL [facility] Interpretation and review of laboratory results Abnormal [facility] Potassium [Moles/Vol] 4 mmol/L 3.5 - 5.1 mmol/L [facility] Sodium [Moles/Vol] 135 mmol/L Low 136 - 145 mmol/L [facility] Urea nitrogen [Mass/Vol] 18 mg/dL 9 - 23 mg/dL [facility] CBC W Auto Differential pane l (Bld)on 11-08-2024 Basophils (Bld) [#/Vol] 0.1 10*3/uL 0.0 - 0.2 10*3/uL [facility] Basophils/100 WBC (Bld) 0.9 % 0.0 - 2.0 % [facility] Eosinophils (Bld) [#/Vol] 0.5 10*3/uL 0.0 - 0.5 10*3/uL [facility] Eosinophils/100 WBC (Bld) 4.1 % 0.0 - 6.0 % [facility] Erythrocyte distribution width (RBC) [Ratio] 17 % High 11.5 - 15.0 % [facility] Hematocrit (Bld) [Volume fraction] 23.1 % Low 35.0 - 47.0 % [facility] Hemoglobin (Bld) [Mass/Vol] 7.5 g/dL Low 11.7 - 16.0 g/dL [facility] Immature granulocytes (Bld) [#/Vol] 0.1 10*3/uL High NINF - 0.1 10*3/uL [facility] Immature granulocytes/100 WBC (Bld) 0.5 % 0.0 - 2.0 % [facility] Interpretation and review of laboratory results Abnormal [facility] Lymphocytes (Bld) [#/Vol] 2.2 10*3/uL 1.0 - 4.3 10*3/uL [facility] Lymphocytes/100 WBC (Bld) 16.6 % 15.0 - 45.0 % [facility] MCH (RBC) [Entitic mass] 28.8 pg 26.0 - 34.0 pg [facility] MCHC (RBC) [Mass/Vol] 32.5 % 30.5 - 36.0 % [facility] MCV (RBC) [Entitic vol] 88.8 fL 77.0 - 99.0 fL [facility] Monocytes (Bld) [#/Vol] 0.9 10*3/uL 0.0 - 0.9 10*3/uL [facility] Monocytes/100 WBC (Bld) 6.9 % 5.0 - 13.0 % [facility] Neutrophils (Bld) [#/Vol] 9.2 10*3/uL High 1.8 - 7.5 10*3/uL [facility] Neutrophils/100 WBC (Bld) 71 % 38.0 - 82.0 % [facility] Nucleated RBC/100 WBC (Bld) [Ratio] 0 % [facility] Platelet mean volume (Bld) [Entitic vol] 10.3 fL 9.0 - 12.7 fL [facility] Platelets (Bld) [#/Vol] 376 10*3/uL 140 - 440 10*3/uL [facility] RBC (Bld) [#/Vol] 2.6 10*6/uL Low 3.80 - 5.2 0 10*6/uL [facility] WBC (Bld) [#/Vol] 13 10*3/uL High 3.6 - 10.7 10*3/uL [facility] CBC WITH AUTO DIFFERENTIALon 11-08-2024 Basophils (Bld) [#/Vol] 0.1 10*3/uL Normal 0.0-0.2 [facility] Comment on above: Performed By: #### L [id number] ####Civil Engineering Design Draftsperson: PHILLY FRANCO ([id number])[facility] ([facility])[address] [place] [id number] [place] [address] Basophils/100 WBC (Bld) 0.9 % Normal 0.0-2.0 S [facility] Comment on above: Performed By: #### L [id number] ####Civil Engineering Design Draftsperson: PHILLY FRANCO ([id number])[facility] ([address] Eosinophils (Bld) [#/Vol] 0.5 10*3/uL Normal 0.0-0.5 [facility] Comment on above: Performed By: #### L [id number] ####Civil Engineering Design Draftsperson: PHILLY FRANCO ([phone])[facility])[address] [place] [address] Eosinophils/100 WBC (Bld) 4.1 % Normal 0.0-6.0 [facility] Comment on above: Performed By: #### L [id number] ####Civil Engineering Design Draftsperson: PHILLY FRANCO ([id number])[address] Erythrocyte distribution width (RBC) [Ratio] 17.0 % High 11.5-15.0 [facility] Comment on above: Performed By: #### L [id number] ####Civil Engineering Design Draftsperson: PHILLY FRANCO ([id number])[facility])[address] [place] [address] Hematocrit (Bld) [Volume fraction] 23.1 % Low 35.0-47.0 [facility] Comment on above: Performed By: #### L [id number] ####Civil Engineering Design Draftsperson: PHILLY FRANCO ([id number])[address] Hemoglobin (Bld) [Mass/Vol] 7.5 g/dL Low 11.7-16.0 [facility] Comment on above: Performed By: #### L [id number] ####Civil Engineering Design Draftsperson: PHILLY FRANCO ([id number])[facility])[address] [place] [address] IMMATURE GRANS % 0.5 % Normal 0.0-2.0 [facility] Comment on above: Performed By: #### L [id number] ####Civil Engineering Design Draftsperson: PHILLY FRANCO ([phone])[facility])[address] [place] [address] IMMATURE GRANS ABSOLUTE 0.1 10*3/uL High <0.1 [facility] Comment on above: Performed By: #### L [id number] ####Civil Engineering Design Draftsperson: PHILLY FRANCO ([id number])[facility])[address] [place] [address] Lymphocytes (Bld) [#/Vol] 2.2 10*3/uL Normal 1.0-4.3 [facility] Comment on above: Performed By: #### L [id number] ####Civil Engineering Design Draftsperson: PHILLY FRANCO ([id number])[facility])[address] [place] [address] Lymphocytes/100 WBC (Bld) 16.6 % Normal 15.0-45.0 [facility] Comment on above: Performed By: #### L [id number] ####Civil Engineering Design Draftsperson: PHILLY FRANCO ([id number])[facility])[address] [place] [address] MCH (RBC) [Entitic mass] 28.8 pg Normal 26.0-34.0 [facility] Comment on above: Performed By: #### L [id number] ####Civil Engineering Design Draftsperson: PHILLY FRANCO ([id number])[facility])[address] [place] [address] MCHC 32.5 % Normal 30.5-36.0 [facility] Comment on above: Performed By: #### L [id number] ####Civil Engineering Design Draftsperson: PHILLY FRANCO ([id number])[facility])[address] [place] [address] MCV (RBC) [Entitic vol] 88.8 fL Normal 77.0-99.0 S [facility] Comment on above: Performed By: #### L [id number] ####Civil Engineering Design Draftsperson: PHILLY FRANCO ([id number])[facility])[address] [place] [address] Monocytes (Bld) [#/Vol] 0.9 10*3/uL Normal 0.0-0.9 [facility] Comment on above: Performed By: #### L [id number] ####Civil Engineering Design Draftsperson: PHILLY FRANCO ([id number])[facility] ([facility])[address] [place] [address] Monocytes/100 WBC (Bld) 6.9 % Normal 5.0-13.0 [facility] Comment on above: Performed By: #### L [id number] ####Civil Engineering Design Draftsperson: PHILLY FRANCO ([phone])[facility] ([facility])[address] [place] [address] NEUTROPHILS ABSOLUTE 9.2 10*3/uL High 1.8-7.5 [facility] Comment on above: Performed By: #### L [id number] ####Civil Engineering Design Draftsperson: PHILLY FRANCO ([phone])[facility] ([facility])[address] [place] [address] Neutrophils/100 WBC (Bld) 71.0 % Normal 38.0-82.0 [facility] Comment on above: Performed By: #### L [id number] ####Civil Engineering Design Draftsperson: PHILLY FRANCO ([id number])[facility] ([facility])[address] [place] [address] NRBC 0.0 /100 WBCs Normal 0.0-2.0 [facility] Comment on above: Performed By: #### L [id number] ####Civil [employer] Design Draftsperson: PHILLY FRANCO ([id number])[facility] ([facility])[address] [place] [address] Platelet mean volume (Bld) [Entitic vol] 10.3 fL Normal 9.0-12.7 [facility] Comment on above: Performed By: #### L [id number] ####Civil Engineering Design Draftsperson: PHILLY FRANCO ([id number])[facility] ([facility])[address] [place] [address] [place] Platelets (Bld) [#/Vol] 376 10*3/uL Normal 140-440 [facility] Comment on above: Performed By: #### L [id number] ####Civil Engineering Design Draftsperson: PHILLY FRANCO ([id number])[facility] ([facility])[address] [place] [address] [place] RBC (Bld) [#/Vol] 2.60 10*6/uL Low 3.80-5.20 [facility] Comment on above: Performed By: #### L [id number] ####Civil Engineering Design Draftsperson: PHILLY FRANCO ([id number])[facility])[address] [place] [address] WBC (Bld) [#/Vol] 13.0 10*3/uL High 3.6-10.7 [facility] Comment on above: Performed By: #### L [id number] ####Civil Engineering Design Draftsperson: PHILLY FRANCO ([id number])[facility])[address] [place] [address] Laboratory - Chemistry and C hemistry - challengeon 11-08-2024 Glucose [Mass/Vol] 117 mg/dL High 70 - 100 mg/dL [facility] No Panel Informationon 11-08 Interpretation and review of laboratory results Abnormal [facility] Nursing Noteon 11-08-2024 Nursing Note Blood sugar 67 orang e juice given pt resting quietly , denies any s/s of hypoglycemia. Normal [facility] Progress Noteon 11-08-2024 Progress Note Normal [facility] Progress Note Normal [facility] [id number] 11-07-2024 [id number] Per [facility] aut h yesterday and that they started a new auth today. Normal [facility] [id number] Normal [facility] BASIC METABOLIC PANELon Anion gap [Moles/Vol] 11 mmol/L Normal 3-13 [facility] Comment on above: Performed By: #### L [id number] ####Civil Engineering Design Draftsperson: PHILLY FRANCO ([id number])[facility] ([facility])[address] [place] [address] Calcium [Mass/Vol] 7.2 mg/dL Low 8.8-10.0 [facility] Comment on above: Performed By: #### L [id number] ####Civil Engineering Design Draftsperson: PHILLY FRANCO ([id number])[facility])[address] [place] [address] Chloride [Moles/Vol] 105 mmol/L Normal 98-107 [facility] Comment on above: Performed By: #### L [id number] ####Civil Engineering Design Draftsperson: PHILLY FRANCO ([id number])[facility])[address] [place] [address] CO2 [Moles/Vol] 23 mmol/L Normal 23-31 [facility] Comment on above: Performed By: #### L [id number] ####Civil Engineering Design Draftsperson: PHILLY FRANCO ([id number])[facility])[address] [place] [address] Creatinine [Mass/Vol] 4.35 mg/dL High 0.57-1.11 [facility] Comment on above: Performed By: #### L [id number] ####Civil Engineering Design Draftsperson: PHILLY FRANCO ([id number])[facility])[address] [place] [address] GLOMERULAR FILTRATION RATE ML/MIN/1.73 SQ M.PREDICTED 10.1 mL/min/1.73m*2 Low >60.0 [facility] Comment on above: Result Comment: Calc ulation based on the Chronic Kidney Disease Epidemiology Collaboration (CKD-EPI) equation refit without adjustment for race Performed By: #### L [id number] ####Civil Engineering Design Draftsperson: PHILLY FRANCO ([id number])[facility])[address] [place] [address] Glucose [Mass/Vol] 82 mg/dL Normal 82-115 [facility] Comment on above: Performed By: #### L [id number] ####Civil Engineering Design Draftsperson: PHILLY FRANCO ([id number])[facility])[address] [place] [address] Potassium [Moles/Vol] 4.8 mmol/L Normal 3.5-5.1 [facility] Comment on above: Result Comment: [facility] potassium values may be up to 0.5 mmol/L lower than serum values. Performed By: #### L [id number] ####Civil Engineering Design Draftsperson: PHILLY FRANCO ([id number])[facility] ([facility])[address] [place] [address] Sodium [Moles/Vol] 139 mmol/L Normal 136-145 [facility] Comment on above: Performed By: #### L [id number] ####Civil Engineering Design Draftsperson: PHILLY FRANCO ([id number])[facility] ([facility])[address] [place] [address] Urea nitrogen [Mass/Vol] 37 mg/dL High 9-23 [facility] Comment on above: Performed By: #### L [id number] ####Civil Engineering Design Draftsperson: PHILLY FRANCO ([id number])[facility] ([facility])[address] [place] [address] Bacteria identified Anaer cx Nom (Unsp spec)on 11-07-2024 Interpretation and review of laboratory results Normal [facility] Interpretation and review of laboratory results Normal [facility] Basic metabolic 1998 panelon 11-07-2024 Anion gap [Moles/Vol] 11 mmol/L 3 - 13 mmol/L [facility] Calcium [Mass/Vol] 7.2 mg/dL Low 8.8 - 10. 0 mg/dL [facility] Chloride [Moles/Vol] 105 mmol/L 98 - 10 7 mmol/L [facility] CO2 [Moles/Vol] 23 mmol/L 23 - 31 mmol/L [facility] Creatinine [Mass/Vol] 4.35 mg/dL High 0.57 - 1.11 mg/dL [facility] GFR/1.73 sq M.predicted (S/P/Bld) [Vol rate/Area] 10.1 mL/min Low - PINF [facility] Glucose [Mass/Vol] 82 mg/dL 82 - 115 mg/dL [facility] Interpretation and review of laboratory results Abnormal [facility] Potassium [Moles/Vol] 4.8 mmol/L 3.5 - 5.1 mmol/L [facility] Sodium [Moles/Vol] 139 mmol/L 136 - 145 mmol/L [facility] Urea nitrogen [Mass/Vol] 37 mg/dL High 9 - 23 mg/dL [facility] CBC W Auto Differential pane l (Bld)on 11-07-2024 Basophils (Bld) [#/Vol] 0.1 10*3/uL 0.0 - 0.2 10*3/uL [facility] Basophils/100 WBC (Bld) 1 % 0.0 - 2.0 % [facility] Eosinophils (Bld) [#/Vol] 0.7 10*3/uL High 0.0 - 0.5 10*3/uL [facility] Eosinophils/100 WBC (Bld) 4.7 % 0.0 - 6.0 % [facility] Erythrocyte distribution width (RBC) [Ratio] 17.5 % High 11.5 - 15.0 % [facility] Hematocrit (Bld) [Volume fraction] 23.6 % Low 35.0 - 47.0 % [facility] Hemoglobin (Bld) [Mass/Vol] 7.6 g/dL Low 11.7 - 16.0 g/dL [facility] Immature granulocytes (Bld) [#/Vol] 0.1 10*3/uL High NINF - 0.1 10*3/uL [facility] Immature granulocytes/100 WBC (Bld) 0.6 % 0.0 - 2.0 % [facility] Interpretation and review of laboratory results Abnormal [facility] Lymphocytes (Bld) [#/Vol] 3.1 10*3/uL 1.0 - 4.3 10*3/uL [facility] Lymphocytes/100 WBC (Bld) 22.2 % 15.0 - 45.0 % [facility] MCH (RBC) [Entitic mass] 28.6 pg 26.0 - 34.0 pg [facility] MCHC (RBC) [Mass/Vol] 32.2 % 30.5 - 36.0 % [facility] MCV (RBC) [Entitic vol] 88.7 fL 77.0 - 99.0 fL [facility] Monocytes (Bld) [#/Vol] 1 10*3/uL High 0.0 - 0.9 10*3/uL [facility] Monocytes/100 WBC (Bld) 6.8 % 5.0 - 13.0 % [facility] Neutrophils (Bld) [#/Vol] 9.1 10*3/uL High 1.8 - 7.5 10*3/uL [facility] Neutrophils/100 WBC (Bld) 64.7 % 38.0 - 82.0 % [facility] Nucleated RBC/100 WBC (Bld) [Ratio] 0 % [facility] Platelet mean volume (Bld) [Entitic vol] 10.5 fL 9.0 - 12.7 fL [facility] Platelets (Bld) [#/Vol] 377 10*3/uL 140 - 440 10*3/uL [facility] RBC (Bld) [#/Vol] 2.66 10*6/uL Low 3.80 - 5.2 0 10*6/uL [facility] WBC (Bld) [#/Vol] 14.1 10*3/uL High 3.6 - 10.7 10*3/uL [facility] CBC WITH AUTO DIFFERENTIALon 11-07-2024 Basophils (Bld) [#/Vol] 0.1 10*3/uL Normal 0.0-0.2 [facility] Comment on above: Performed By: #### L [id number] ####Civil Engineering Design Draftsperson: PHILLY FRANCO ([id number])[facility])[address] [place] [address] Basophils/100 WBC (Bld) 1.0 % Normal 0.0-2.0 S [facility] Comment on above: Performed By: #### L [id number] ####Civil Engineering Design Draftsperson: PHILLY FRANCO ([id number])[facility])[address] [place] [address] Eosinophils (Bld) [#/Vol] 0.7 10*3/uL High 0.0-0.5 [facility] Comment on above: Performed By: #### L [id number] ####Civil Engineering Design Draftsperson: PHILLY FRANCO ([id number])[facility])[address] [place] [address] Eosinophils/100 WBC (Bld) 4.7 % Normal 0.0-6.0 [facility] Comment on above: Performed By: #### L [id number] ####Civil Engineering Design Draftsperson: PHILLY FRANCO ([id number])[facility])[address] [place] [address] Erythrocyte distribution width (RBC) [Ratio] 17.5 % High 11.5-15.0 [facility] Comment on above: Performed By: #### L [id number] ####Civil Engineering Design Draftsperson: PHILLY FRANCO ([id number])[address] Hematocrit (Bld) [Volume fraction] 23.6 % Low 35.0-47.0 [facility] Comment on above: Performed By: #### L [id number] ####Civil Engineering Design Draftsperson: PHILLY FRANCO ([id number])[facility])[address] [place] [address] Hemoglobin (Bld) [Mass/Vol] 7.6 g/dL Low 11.7-16.0 [facility] Comment on above: Performed By: #### L [id number] ####Civil Engineering Design Draftsperson: PHILLY FRANCO ([id number])[address] IMMATURE GRANS % 0.6 % Normal 0.0-2.0 [facility] Comment on above: Performed By: #### L [id number] ####Civil Engineering Design Draftsperson: PHILLY FRANCO ([id number])[address] IMMATURE GRANS ABSOLUTE 0.1 10*3/uL High <0.1 [facility] Comment on above: Performed By: #### L [id number] ####Civil Engineering Design Draftsperson: PHILLY FRANCO ([id number])[facility])[address] [place] [address] Lymphocytes (Bld) [#/Vol] 3.1 10*3/uL Normal 1.0-4.3 [facility] Comment on above: Performed By: #### L [id number] ####Civil Engineering Design Draftsperson: PHILLY FRANCO ([id number])[address] Lymphocytes/100 WBC (Bld) 22.2 % Normal 15.0-45.0 [facility] Comment on above: Performed By: #### L [id number] ####Civil Engineering Design Draftsperson: PHILLY FRANCO ([id number])[facility])[address] [place] [address] MCH (RBC) [Entitic mass] 28.6 pg Normal 26.0-34.0 [facility] Comment on above: Performed By: #### L [id number] ####Civil Engineering Design Draftsperson: PHILLY FRANCO ([id number])[facility])[address] [place] [address] MCHC 32.2 % Normal 30.5-36.0 [facility] Comment on above: Performed By: #### L [id number] ####Civil Engineering Design Draftsperson: PHILLY FRANCO ([id number])[facility])[address] [place] [address] MCV (RBC) [Entitic vol] 88.7 fL Normal 77.0-99.0 S [facility] Comment on above: Performed By: #### L [id number] ####Civil Engineering Design Draftsperson: PHILLY FRANCO ([id number])[facility] ([facility])[address] [place] [address] Monocytes (Bld) [#/Vol] 1.0 10*3/uL High 0.0-0.9 [facility] Comment on above: Performed By: #### L [id number] ####Civil Engineering Design Draftsperson: PHILLY FRANCO ([id number])[facility])[address] [place] [address] Monocytes/100 WBC (Bld) 6.8 % Normal 5.0-13.0 [facility] Comment on above: Performed By: #### L [id number] ####Civil Engineering Design Draftsperson: PHILLY FRANCO ([id number])[facility])[address] [place] [address] NEUTROPHILS ABSOLUTE 9.1 10*3/uL High 1.8-7.5 [facility] Comment on above: Performed By: #### L [id number] ####Civil Engineering Design Draftsperson: PHILLY FRANCO ([id number])[facility])[address] [place] [address] Neutrophils/100 WBC (Bld) 64.7 % Normal 38.0-82.0 [facility] Comment on above: Performed By: #### L [id number] ####Civil Engineering Design Draftsperson: PHILLY FRANCO ([id number])[facility] ([facility])[address] [place] [address] NRBC 0.0 /100 WBCs Normal 0.0-2.0 [facility] Comment on above: Performed By: #### L [id number] ####Civil Engineering Design Draftsperson: PHILLY FRANCO ([id number])[facility] ([facility])[address] [place] [address] Platelet mean volume (Bld) [Entitic vol] 10.5 fL Normal 9.0-12.7 [facility] Comment on above: Performed By: #### L [id number] ####Civil Engineering Design Draftsperson: PHILLY FRANCO ([id number])[facility] ([facility])[address] [place] [address] Platelets (Bld) [#/Vol] 377 10*3/uL Normal 140-440 [facility] Comment on above: Performed By: #### L [id number] ####Civil Engineering Design Draftsperson: PHILLY FRANCO ([id number])[facility] ([facility])[address] [place] [address] RBC (Bld) [#/Vol] 2.66 10*6/uL Low 3.80-5.20 [facility] Comment on above: Performed By: #### L [id number] ####Civil Engineering Design Draftsperson: PHILLY FRANCO ([id number])[facility] ([facility])[address] [place] [address] WBC (Bld) [#/Vol] 14.1 10*3/uL High 3.6-10.7 [facility] Comment on above: Performed By: #### L [id number] ####Civil Engineering Design Draftsperson: PHILLY FRANCO ([id number])[facility] ([facility])[address] [place] [address] Laboratory - Microbiology an d Antimicrobial susceptibilityon 11-07-2024 Bacteria identified Anaer cx Nom (Unsp spec) No growth at 5 days [facility] Bacteria identified Anaer cx Nom (Unsp spec) No growth at 5 days [facility] Nursing Noteon 11-07-2024 Nursing Note Normal [facility] Progress Noteon 11-07-2024 Progress Note Normal [facility] Progress Note Normal [facility] Progress Note Normal [facility] Progress Note Normal [facility] [id number] 11-06-2024 [id number] Updated notes sent t o [facility] via [facility] per [facility] request. Await review and response regarding ability to accept. [facility] notified. Normal [facility] [id number] [facility] messaged to send updates to [facility] with request to start auth to return. Normal [facility] [id number] Normal [facility] BASIC METABOLIC PANELon Anion gap [Moles/Vol] 9 mmol/L Normal 3-13 [facility] Comment on above: Performed By: #### L [id number] ####Civil Engineering Design Draftsperson: PHILLY FRANCO ([id number])[address] Calcium [Mass/Vol] 7.3 mg/dL Low 8.8-10.0 [facility] Comment on above: Performed By: #### L [id number] ####Civil Engineering Design Draftsperson: PHILLY FRANCO ([id number])[facility])[address] [place] [address] Basic metabolic 1998 panelon 11-06-2024 Anion gap [Moles/Vol] 9 mmol/L 3 - 13 mmol/L [facility] Calcium [Mass/Vol] 7.3 mg/dL Low 8.8 - 10. 0 mg/dL [facility] Chloride [Moles/Vol] 105 mmol/L 98 - 10 7 mmol/L [facility] CO2 [Moles/Vol] 24 mmol/L 23 - 31 mmol/L [facility] Creatinine [Mass/Vol] 3.5 mg/dL High 0.57 - 1.11 mg/dL [facility] GFR/1.73 sq M.predicted (S/P/Bld) [Vol rate/Area] 13.2 mL/min Low - PINF [facility] Glucose [Mass/Vol] 123 mg/dL High 82 - 115 mg/dL [facility] Interpretation and review of laboratory results Abnormal [facility] Potassium [Moles/Vol] 4.7 mmol/L 3.5 - 5.1 mmol/L [facility] Sodium [Moles/Vol] 138 mmol/L 136 - 145 mmol/L [facility] Urea nitrogen [Mass/Vol] 24 mg/dL High 9 - 23 mg/dL [facility] CBC W Auto Differential pane l (Bld)on 11-06-2024 Basophils (Bld) [#/Vol] 0.1 10*3/uL 0.0 - 0.2 10*3/uL [facility] Basophils/100 WBC (Bld) 0.6 % 0.0 - 2.0 % [facility] Eosinophils (Bld) [#/Vol] 0 10*3/uL 0.0 - 0.5 10*3/uL [facility] Eosinophils/100 WBC (Bld) 0.1 % 0.0 - 6.0 % [facility] Erythrocyte distribution width (RBC) [Ratio] 17.4 % High 11.5 - 15.0 % [facility] Hematocrit (Bld) [Volume fraction] 27.6 % Low 35.0 - 47.0 % [facility] Hemoglobin (Bld) [Mass/Vol] 9.3 g/dL Low 11.7 - 16.0 g/dL [facility] Immature granulocytes (Bld) [#/Vol] 0.1 10*3/uL High NINF - 0.1 10*3/uL [facility] Immature granulocytes/100 WBC (Bld) 0.6 % 0.0 - 2.0 % [facility] Interpretation and review of laboratory results Abnormal [facility] Lymphocytes (Bld) [#/Vol] 2.3 10*3/uL 1.0 - 4.3 10*3/uL [facility] Lymphocytes/100 WBC (Bld) 14.8 % Low 15.0 - 45.0 % [facility] MCH (RBC) [Entitic mass] 28.8 pg 26.0 - 34.0 pg [facility] MCHC (RBC) [Mass/Vol] 33.7 % 30.5 - 36.0 % [facility] MCV (RBC) [Entitic vol] 85.4 fL 77.0 - 99.0 fL [facility] Monocytes (Bld) [#/Vol] 1 10*3/uL High 0.0 - 0.9 10*3/uL [facility] Monocytes/100 WBC (Bld) 6.1 % 5.0 - 13.0 % [facility] Neutrophils (Bld) [#/Vol] 12.2 10*3/uL High 1.8 - 7.5 10*3/uL [facility] Neutrophils/100 WBC (Bld) 77.8 % 38.0 - 82.0 % [facility] Nucleated RBC/100 WBC (Bld) [Ratio] 0 % [facility] Platelet mean volume (Bld) [Entitic vol] 10.6 fL 9.0 - 12.7 fL [facility] Platelets (Bld) [#/Vol] 388 10*3/uL 140 - 440 10*3/uL [facility] RBC (Bld) [#/Vol] 3.23 10*6/uL Low 3.80 - 5.2 0 10*6/uL [facility] WBC (Bld) [#/Vol] 15.6 10*3/uL High 3.6 - 10.7 10*3/uL [facility] Progress Noteon 11-06-2024 Progress Note Normal [facility] Progress Note Normal [facility] Progress Note Normal [facility] Progress Note Normal [facility] Progress Note Normal [facility] Bacteria identified Aer cx N om (Unsp spec)on 11-05-2024 Gram Stain Result Moderate Polymorphonuclear leukocytes per low power field [facility] Gram Stain Result No organisms seen [facility] Bacteria identified Aer cx N om (Unsp spec)Ordered By: Te Laguna on 11-05-2024 Gram Stain Result Few Polymorphonuclea r leukocytes per low power field [facility] Gram Stain Result No organisms seen [facility] Basic metabolic 1998 panelon 11-05-2024 Anion gap [Moles/Vol] 9 mmol/L 3 - 13 mmol/L [facility] Calcium [Mass/Vol] 7.3 mg/dL Low 8.8 - 10. 0 mg/dL [facility] Chloride [Moles/Vol] 104 mmol/L 98 - 10 7 mmol/L [facility] CO2 [Moles/Vol] 25 mmol/L 23 - 31 mmol/L [facility] Creatinine [Mass/Vol] 2.53 mg/dL High 0.57 - 1.11 mg/dL [facility] GFR/1.73 sq M.predicted (S/P/Bld) [Vol rate/Area] 19.4 mL/min Low - PINF [facility] Glucose [Mass/Vol] 66 mg/dL Low 82 - 115 mg/dL [facility] Interpretation and review of laboratory results Abnormal [facility] Potassium [Moles/Vol] 3.8 mmol/L 3.5 - 5.1 mmol/L [facility] Sodium [Moles/Vol] 138 mmol/L 136 - 145 mmol/L [facility] Urea nitrogen [Mass/Vol] 13 mg/dL 9 - 23 mg/dL [facility] Blood type and Crossmatch pa kojo (Bld)on 11-05-2024 ABO group Nom (Bld) O [facility] Blood group antibody screen GEL Ql Negative [facility] D Ag Ql (RBC) Positive [facility] CBC W Auto Differential pane l (Bld)Ordered By: Beatriz Morales on 11-05-2024 Basophils (Bld) [#/Vol] 0.1 10*3/uL 0.0 - 0.2 10*3/uL [facility] Basophils/100 WBC (Bld) 0.8 % 0.0 - 2.0 % [facility] Eosinophils (Bld) [#/Vol] 0.8 10*3/uL High 0.0 - 0.5 10*3/uL [facility] Eosinophils/100 WBC (Bld) 5.1 % 0.0 - 6.0 % [facility] Erythrocyte distribution width (RBC) [Ratio] 17.3 % High 11.5 - 15.0 % [facility] Hematocrit (Bld) [Volume fraction] 20.3 % Low 35.0 - 47.0 % [facility] Hemoglobin (Bld) [Mass/Vol] 6.6 g/dL Critically low 11.7 - 16.0 g/dL [facility] Immature granulocytes (Bld) [#/Vol] 0.1 10*3/uL High NINF - 0.1 10*3/uL [facility] Immature granulocytes/100 WBC (Bld) 0.6 % 0.0 - 2.0 % [facility] Interpretation and review of laboratory results Abnormal [facility] Lymphocytes (Bld) [#/Vol] 2.2 10*3/uL 1.0 - 4.3 10*3/uL [facility] Lymphocytes/100 WBC (Bld) 14.8 % Low 15.0 - 45.0 % [facility] MCH (RBC) [Entitic mass] 28.4 pg 26.0 - 34.0 pg [facility] MCHC (RBC) [Mass/Vol] 32.5 % 30.5 - 36.0 % [facility] MCV (RBC) [Entitic vol] 87.5 fL 77.0 - 99.0 fL [facility] Monocytes (Bld) [#/Vol] 0.9 10*3/uL 0.0 - 0.9 10*3/uL [facility] [facility] Monocytes/100 WBC (Bld) 6.2 % 5.0 - 13.0 % [facility] Neutrophils (Bld) [#/Vol] 10.6 10*3/uL High 1.8 - 7.5 10*3/uL [facility] Neutrophils/100 WBC (Bld) 72.5 % 38.0 - 82.0 % [facility] Nucleated RBC/100 WBC (Bld) [Ratio] 0 % [facility] Platelet mean volume (Bld) [Entitic vol] 10.9 fL 9.0 - 12.7 fL [facility] Platelets (Bld) [#/Vol] 391 10*3/uL 140 - 440 10*3/uL [facility] RBC (Bld) [#/Vol] 2.32 10*6/uL Low 3.80 - 5.2 0 10*6/uL [facility] WBC (Bld) [#/Vol] 14.6 10*3/uL High 3.6 - 10.7 10*3/uL [facility] Hemoglobin (Bld) [Mass/Vol]O rdered By: Emily Hernández on 11-05-2024 Hematocrit (Bld) [Volume fraction] 28.2 % Low 35.0 - 47.0 % [facility] Interpretation and review of laboratory results Abnormal [facility] Hemoglobin (Bld) [Mass/Vol]o n 11-05-2024 Hematocrit (Bld) [Volume fraction] 18 % Low 35.0 - 47.0 % [facility] Interpretation and review of laboratory results Abnormal [facility] Laboratory - Hematology and Cell countsOrdered By: Emily Hernández on 11-05-2024 Hemoglobin (Bld) [Mass/Vol] 9.4 g/dL Low 11.7 - 16.0 g/dL [facility] Laboratory - Hematology and Cell countson 11-05-2024 Hemoglobin (Bld) [Mass/Vol] 5.8 g/dL Critically low 11.7 - 16.0 g/dL [facility] Laboratory - Microbiology an d Antimicrobial susceptibilityon 11-05-2024 Bacteria identified Aer cx Nom (Unsp spec) No growth at 72 hours [facility] Laboratory - Microbiology an d Antimicrobial susceptibilityOrdered By: Te Laguna on 11-05-2024 Bacteria identified Aer cx Nom (Unsp spec) No growth at 72 hours [facility] No Panel Informationon 11-05 Blood Expiration Date [id number] [facility] Crossmatch interpretation COMP [facility] Dispense Status Transfused [facility] Product Blood Type 5100 [facility] PRODUCT CODE [id number] [facility] ABO O [facility] Unit Number [id number] [facility] RH Positive [facility] Volume 300 mL [facility] Blood Expiration Date [id number] [facility] Crossmatch interpretation COMP [facility] Dispense Status Released from Crossmatch [facility] Product Blood Type 5100 [facility] PRODUCT CODE [id number] [facility] O [facility] Unit Number [id number] [facility] RH Positive [facility] Volume 300 mL [facility] Basic metabolic 1998 panelon 11-04-2024 Anion gap [Moles/Vol] 11 mmol/L 3 - 13 mmol/L [facility] Calcium [Mass/Vol] 7.2 mg/dL Low 8.8 - 10. 0 mg/dL [facility] Chloride [Moles/Vol] 104 mmol/L 98 - 10 7 mmol/L [facility] CO2 [Moles/Vol] 24 mmol/L 23 - 31 mmol/L [facility] Creatinine [Mass/Vol] 3.47 mg/dL High 0.57 - 1.11 mg/dL [facility] GFR/1.73 sq M.predicted (S/P/Bld) [Vol rate/Area] 13.3 mL/min Low - PINF [facility] Glucose [Mass/Vol] 79 mg/dL Low 82 - 115 mg/dL [facility] Interpretation and review of laboratory results Abnormal [facility] Potassium [Moles/Vol] 4 mmol/L 3.5 - 5.1 mmol/L [facility] Sodium [Moles/Vol] 139 mmol/L 136 - 145 mmol/L [facility] Urea nitrogen [Mass/Vol] 25 mg/dL High 9 - 23 mg/dL [facility] CBC W Auto Differential pane l (Bld)on 11-04-2024 Basophils (Bld) [#/Vol] 0.1 10*3/uL 0.0 - 0.2 10*3/uL [facility] Basophils/100 WBC (Bld) 0.8 % 0.0 - 2.0 % [facility] Eosinophils (Bld) [#/Vol] 0.5 10*3/uL 0.0 - 0.5 10*3/uL [facility] Eosinophils/100 WBC (Bld) 3.1 % 0.0 - 6.0 % [facility] Erythrocyte distribution width (RBC) [Ratio] 18 % High 11.5 - 15.0 % [facility] Hematocrit (Bld) [Volume fraction] 23 % Low 35.0 - 47.0 % [facility] Hemoglobin (Bld) [Mass/Vol] 7.7 g/dL Low 11.7 - 16.0 g/dL [facility] Immature granulocytes (Bld) [#/Vol] 0.1 10*3/uL High NINF - 0.1 10*3/uL [facility] Immature granulocytes/100 WBC (Bld) 0.6 % 0.0 - 2.0 % [facility] Interpretation and review of laboratory results Abnormal [facility] Lymphocytes (Bld) [#/Vol] 2.5 10*3/uL 1.0 - 4.3 10*3/uL [facility] Lymphocytes/100 WBC (Bld) 15.9 % 15.0 - 45.0 % [facility] MCH (RBC) [Entitic mass] 28.9 pg 26.0 - 34.0 pg [facility] MCHC (RBC) [Mass/Vol] 33.5 % 30.5 - 36.0 % [facility] MCV (RBC) [Entitic vol] 86.5 fL 77.0 - 99.0 fL [facility] Monocytes (Bld) [#/Vol] 0.9 10*3/uL 0.0 - 0.9 10*3/uL [facility] Monocytes/100 WBC (Bld) 5.9 % 5.0 - 13.0 % [facility] Neutrophils (Bld) [#/Vol] 11.4 10*3/uL High 1.8 - 7.5 10*3/uL [facility] Neutrophils/100 WBC (Bld) 73.7 % 38.0 - 82.0 % [facility] Nucleated RBC/100 WBC (Bld) [Ratio] 0 % [facility] Platelet mean volume (Bld) [Entitic vol] 10.6 fL 9.0 - 12.7 fL [facility] Platelets (Bld) [#/Vol] 372 10*3/uL 140 - 440 10*3/uL [facility] RBC (Bld) [#/Vol] 2.66 10*6/uL Low 3.80 - 5.2 0 10*6/uL [facility] WBC (Bld) [#/Vol] 15.5 10*3/uL High 3.6 - 10.7 10*3/uL [facility] CBC W Auto Differential pane l (Bld)Ordered By: Andre Ervin on 11-04-2024 Basophils (Bld) [#/Vol] 0.1 10*3/uL 0.0 - 0.2 10*3/uL [facility] Basophils/100 WBC (Bld) 0.8 % 0.0 - 2.0 % [facility] Eosinophils (Bld) [#/Vol] 0.5 10*3/uL 0.0 - 0.5 10*3/uL [facility] Eosinophils/100 WBC (Bld) 2.7 % 0.0 - 6.0 % [facility] Erythrocyte distribution width (RBC) [Ratio] 18.3 % High 11.5 - 15.0 % [facility] Hematocrit (Bld) [Volume fraction] 20.2 % Low 35.0 - 47.0 % [facility] Hemoglobin (Bld) [Mass/Vol] 6.7 g/dL Critically low 11.7 - 16.0 g/dL [facility] Immature granulocytes (Bld) [#/Vol] 0.1 10*3/uL High NINF - 0.1 10*3/uL [facility] Immature granulocytes/100 WBC (Bld) 0.8 % 0.0 - 2.0 % [facility] Interpretation and review of laboratory results Abnormal [facility] Lymphocytes (Bld) [#/Vol] 2.8 10*3/uL 1.0 - 4.3 10*3/uL [facility] Lymphocytes/100 WBC (Bld) 16 % 15.0 - 45.0 % [facility] MCH (RBC) [Entitic mass] 28.5 pg 26.0 - 34.0 pg [facility] MCHC (RBC) [Mass/Vol] 33.2 % 30.5 - 36.0 % [facility] MCV (RBC) [Entitic vol] 86 fL 77.0 - 99.0 fL [facility] Monocytes (Bld) [#/Vol] 1 10*3/uL High 0.0 - 0.9 10*3/uL [facility] Monocytes/100 WBC (Bld) 5.9 % 5.0 - 13.0 % [facility] Neutrophils (Bld) [#/Vol] 12.7 10*3/uL High 1.8 - 7.5 10*3/uL [facility] Neutrophils/100 WBC (Bld) 73.8 % 38.0 - 82.0 % [facility] Nucleated RBC/100 WBC (Bld) [Ratio] 0 % [facility] Platelet mean volume (Bld) [Entitic vol] 10.7 fL 9.0 - 12.7 fL [facility] Platelets (Bld) [#/Vol] 394 10*3/uL 140 - 440 10*3/uL [facility] RBC (Bld) [#/Vol] 2.35 10*6/uL Low 3.80 - 5.2 0 10*6/uL [facility] WBC (Bld) [#/Vol] 17.2 10*3/uL High 3.6 - 10.7 10*3/uL [facility] Laboratory - Chemistry and C hemistry - challengeon 11-04-2024 Glucose [Mass/Vol] 93 mg/dL 70 - 100 mg/dL [facility] Glucose [Mass/Vol] 93 mg/dL 70 - 100 mg/dL [facility] No Panel Informationon 11-04 Interpretation and review of laboratory results Normal [facility] [place] Interpretation and review of laboratory results Normal [facility] [place] Basic metabolic 1998 panelOr dered By: Shauna Ayon on 11-03-2024 Anion gap [Moles/Vol] 12 mmol/L 3 - 13 mmol/L [facility] Calcium [Mass/Vol] 7.4 mg/dL Low 8.8 - 10. 0 mg/dL [facility] Chloride [Moles/Vol] 103 mmol/L 98 - 10 7 mmol/L [facility] CO2 [Moles/Vol] 21 mmol/L Low 23 - 31 mmol/L [facility] Creatinine [Mass/Vol] 2.68 mg/dL High 0.57 - 1.11 mg/dL [facility] GFR/1.73 sq M.predicted (S/P/Bld) [Vol rate/Area] 18.1 mL/min Low - PINF [facility] Glucose [Mass/Vol] 76 mg/dL Low 82 - 115 mg/dL [facility] Interpretation and review of laboratory results Abnormal [facility] Potassium [Moles/Vol] 3.9 mmol/L 3.5 - 5.1 mmol/L [facility] Sodium [Moles/Vol] 136 mmol/L 136 - 145 mmol/L [facility] Urea nitrogen [Mass/Vol] 16 mg/dL 9 - 23 mg/dL [facility] CBC W Auto Differential pane l (Bld)on 11-03-2024 Basophils (Bld) [#/Vol] 0.1 10*3/uL 0.0 - 0.2 10*3/uL [facility] Basophils/100 WBC (Bld) 0.6 % 0.0 - 2.0 % [facility] Eosinophils (Bld) [#/Vol] 0.2 10*3/uL 0.0 - 0.5 10*3/uL [facility] Eosinophils/100 WBC (Bld) 0.9 % 0.0 - 6.0 % [facility] Erythrocyte distribution width (RBC) [Ratio] 18.3 % High 11.5 - 15.0 % [facility] Hematocrit (Bld) [Volume fraction] 18.6 % Low 35.0 - 47.0 % [facility] Hemoglobin (Bld) [Mass/Vol] 6.1 g/dL Critically low 11.7 - 16.0 g/dL [facility] Immature granulocytes (Bld) [#/Vol] 0.1 10*3/uL High NINF - 0.1 10*3/uL [facility] Immature granulocytes/100 WBC (Bld) 0.6 % 0.0 - 2.0 % [facility] Interpretation and review of laboratory results Abnormal [facility] Lymphocytes (Bld) [#/Vol] 3.6 10*3/uL 1.0 - 4.3 10*3/uL [facility] Lymphocytes/100 WBC (Bld) 18.7 % 15.0 - 45.0 % [facility] MCH (RBC) [Entitic mass] 28.9 pg 26.0 - 34.0 pg [facility] MCHC (RBC) [Mass/Vol] 32.8 % 30.5 - 36.0 % [facility] MCV (RBC) [Entitic vol] 88.2 fL 77.0 - 99.0 fL [facility] Monocytes (Bld) [#/Vol] 1.4 10*3/uL High 0.0 - 0.9 10*3/uL [facility] Monocytes/100 WBC (Bld) 7.3 % 5.0 - 13.0 % [facility] Neutrophils (Bld) [#/Vol] 13.8 10*3/uL High 1.8 - 7.5 10*3/uL [facility] Neutrophils/100 WBC (Bld) 71.9 % 38.0 - 82.0 % [facility] Nucleated RBC/100 WBC (Bld) [Ratio] 0 % [facility] Platelet mean volume (Bld) [Entitic vol] 10.7 fL 9.0 - 12.7 fL [facility] Platelets (Bld) [#/Vol] 407 10*3/uL 140 - 440 10*3/uL [facility] RBC (Bld) [#/Vol] 2.11 10*6/uL Low 3.80 - 5.2 0 10*6/uL [facility] WBC (Bld) [#/Vol] 19.2 10*3/uL High 3.6 - 10.7 10*3/uL [facility] Hemoglobin (Bld) [Mass/Vol]O rdered By: Christy Carnes on 11-03-2024 Hematocrit (Bld) [Volume fraction] 26 % Low 35.0 - 47.0 % [facility] Interpretation and review of laboratory results Abnormal [facility] Laboratory - Chemistry and C hemistry - challengeon 11-03-2024 Glucose [Mass/Vol] 101 mg/dL High 70 - 100 mg/dL [facility] Glucose [Mass/Vol] 112 mg/dL High 70 - 100 mg/dL [facility] Glucose [Mass/Vol] 100 mg/dL 70 - 100 mg/dL [facility] Glucose [Mass/Vol] 95 mg/dL 70 - 100 mg/dL [facility] Laboratory - Hematology and Cell countsOrdered By: Christy Carnes on 11-03-2024 Hemoglobin (Bld) [Mass/Vol] 8.6 g/dL Low 11.7 - 16.0 g/dL [facility] No Panel Informationon 11-03 Interpretation and review of laboratory results Abnormal [facility] [place] Interpretation and review of laboratory results Abnormal [facility] [place] Blood Expiration Date [id number] S [facility] Crossmatch interpretation COMP [facility] Dispense Status Transfused [facility] Product Blood Type 5100 [facility] PRODUCT CODE [id number] [facility] PRODUCT CODE [id number] [facility] ABO O [facility] Number [id number] [facility] RH Positive [facility] Volume 227 mL [facility] Volume 285 mL [facility] Interpretation and review of laboratory results Normal [facility] [place] Interpretation and review of laboratory results Normal [facility] [place] Basic metabolic 1998 panelon 11-02-2024 Anion gap [Moles/Vol] 11 mmol/L 3 - 13 mmol/L [facility] Calcium [Mass/Vol] 7.5 mg/dL Low 8.8 - 10. 0 mg/dL [facility] Chloride [Moles/Vol] 105 mmol/L 98 - 10 7 mmol/L [facility] CO2 [Moles/Vol] 20 mmol/L Low 23 - 31 mmol/L [facility] Creatinine [Mass/Vol] 3.99 mg/dL High 0.57 - 1.11 mg/dL [facility] GFR/1.73 sq M.predicted (S/P/Bld) [Vol rate/Area] 11.3 mL/min Low - PINF [facility] Glucose [Mass/Vol] 78 mg/dL Low 82 - 115 mg/dL [facility] Interpretation and review of laboratory results Abnormal [facility] Potassium [Moles/Vol] 5 mmol/L 3.5 - 5.1 mmol/L [facility] Sodium [Moles/Vol] 136 mmol/L 136 - 145 mmol/L [facility] Urea nitrogen [Mass/Vol] 23 mg/dL 9 - 23 mg/dL [facility] Anion gap [Moles/Vol] 12 mmol/L 3 - 13 mmol/L [facility] Calcium [Mass/Vol] 7.7 mg/dL Low 8.8 - 10. 0 mg/dL [facility] Chloride [Moles/Vol] 105 mmol/L 98 - 10 7 mmol/L [facility] CO2 [Moles/Vol] 21 mmol/L Low 23 - 31 mmol/L [facility] Creatinine [Mass/Vol] 4.11 mg/dL High 0.57 - 1.11 mg/dL [facility] GFR/1.73 sq M.predicted (S/P/Bld) [Vol rate/Area] 10.9 mL/min Low - PINF [facility] Glucose [Mass/Vol] 64 mg/dL Low 82 - 115 mg/dL [facility] Interpretation and review of laboratory results Abnormal [facility] Potassium [Moles/Vol] 4.8 mmol/L 3.5 - 5.1 mmol/L [facility] Sodium [Moles/Vol] 138 mmol/L 136 - 145 mmol/L [facility] Urea nitrogen [Mass/Vol] 20 mg/dL 9 - 23 mg/dL [facility] CBC W Auto Differential pane l (Bld)on 11-02-2024 Basophils (Bld) [#/Vol] 0.2 10*3/uL 0.0 - 0.2 10*3/uL [facility] Basophils/100 WBC (Bld) 0.7 % 0.0 - 2.0 % [facility] Eosinophils (Bld) [#/Vol] 0.8 10*3/uL High 0.0 - 0.5 10*3/uL [facility] Eosinophils/100 WBC (Bld) 3.6 % 0.0 - 6.0 % [facility] Erythrocyte distribution width (RBC) [Ratio] 16.3 % High 11.5 - 15.0 % [facility] Hematocrit (Bld) [Volume fraction] 22.9 % Low 35.0 - 47.0 % [facility] Hemoglobin (Bld) [Mass/Vol] 7.4 g/dL Low 11.7 - 16.0 g/dL [facility] Immature granulocytes (Bld) [#/Vol] 0.1 10*3/uL High NINF - 0.1 10*3/uL [facility] Immature granulocytes/100 WBC (Bld) 0.6 % 0.0 - 2.0 % [facility] Interpretation and review of laboratory results Abnormal [facility] Lymphocytes (Bld) [#/Vol] 3.3 10*3/uL 1.0 - 4.3 10*3/uL [facility] Lymphocytes/100 WBC (Bld) 14.8 % Low 15.0 - 45.0 % [facility] MCH (RBC) [Entitic mass] 29.8 pg 26.0 - 34.0 pg [facility] MCHC (RBC) [Mass/Vol] 32.3 % 30.5 - 36.0 % [facility] MCV (RBC) [Entitic vol] 92.3 fL 77.0 - 99.0 fL [facility] Monocytes (Bld) [#/Vol] 1.2 10*3/uL High 0.0 - 0.9 10*3/uL [facility] Monocytes/100 WBC (Bld) 5.6 % 5.0 - 13.0 % [facility] Neutrophils (Bld) [#/Vol] 16.4 10*3/uL High 1.8 - 7.5 10*3/uL [facility] Neutrophils/100 WBC (Bld) 74.7 % 38.0 - 82.0 % [facility] Nucleated RBC/100 WBC (Bld) [Ratio] 0 % [facility] Platelet mean volume (Bld) [Entitic vol] 10.8 fL 9.0 - 12.7 fL [facility] Platelets (Bld) [#/Vol] 530 10*3/uL High 140 - 440 10*3/uL [facility] RBC (Bld) [#/Vol] 2.48 10*6/uL Low 3.80 - 5.2 0 10*6/uL [facility] WBC (Bld) [#/Vol] 21.9 10*3/uL High 3.6 - 10.7 10*3/uL [facility] Hemoglobin (Bld) [Mass/Vol]O rdered By: Rimma Galloway on 11-02-2024 Hematocrit (Bld) [Volume fraction] 24.1 % Low 35.0 - 47.0 % [facility] Interpretation and review of laboratory results Abnormal [facility] Hemoglobin (Bld) [Mass/Vol]O rdered By: Mihaela Miller on 11-02-2024 Hematocrit (Bld) [Volume fraction] 20 % Low 35.0 - 47.0 % [facility] Interpretation and review of laboratory results Abnormal [facility] Laboratory - Chemistry and C hemistry - challengeon 11-02-2024 Glucose [Mass/Vol] 98 mg/dL 70 - 100 mg/dL [facility] Glucose [Mass/Vol] 103 mg/dL High 70 - 100 mg/dL [facility] Glucose [Mass/Vol] 96 mg/dL 70 - 100 mg/dL [facility] Glucose [Mass/Vol] 73 mg/dL 70 - 100 mg/dL [facility] Laboratory - Hematology and Cell countsOrdered By: Rimma Galloway on 11-02-2024 Hemoglobin (Bld) [Mass/Vol] 8 g/dL Low 11.7 - 16.0 g/dL [facility] Laboratory - Hematology and Cell countsOrdered By: Mihaela Miller on 11-02-2024 Hemoglobin (Bld) [Mass/Vol] 6.3 g/dL Critically low 11.7 - 16.0 g/dL [facility] No Panel Informationon 11-02 Interpretation and review of laboratory results Normal [facility] [place] Interpretation and review of laboratory results Abnormal [facility] [place] Interpretation and review of laboratory results Normal [facility] [place] Interpretation and review of laboratory results Normal [facility] [place] Basic metabolic 1998 panelOr dered By: Tameka Can on 11-01-2024 Anion gap [Moles/Vol] 13 mmol/L 3 - 13 mmol/L [facility] Calcium [Mass/Vol] 7.7 mg/dL Low 8.8 - 10. 0 mg/dL [facility] Chloride [Moles/Vol] 104 mmol/L 98 - 10 7 mmol/L [facility] CO2 [Moles/Vol] 22 mmol/L Low 23 - 31 mmol/L [facility] Creatinine [Mass/Vol] 2.98 mg/dL High 0.57 - 1.11 mg/dL [facility] GFR/1.73 sq M.predicted (S/P/Bld) [Vol rate/Area] 16 mL/min Low - PINF [facility] Glucose [Mass/Vol] 67 mg/dL Low 82 - 115 mg/dL [facility] Interpretation and review of laboratory results Abnormal [facility] Potassium [Moles/Vol] 4.6 mmol/L 3.5 - 5.1 mmol/L [facility] Sodium [Moles/Vol] 139 mmol/L 136 - 145 mmol/L [facility] Urea nitrogen [Mass/Vol] 14 mg/dL 9 - 23 mg/dL [facility] Blood type and Crossmatch pa kojo (Bld)on 11-01-2024 ABO group Nom (Bld) O [facility] Blood group antibody screen GEL Ql Negative [facility] D Ag Ql (RBC) Positive [facility] CBC W Auto Differential pane l (Bld)Ordered By: Mak Hobbs on 11-01-2024 Erythrocyte distribution width (RBC) [Ratio] 16.6 % High 11.5 - 15.0 % [facility] Hematocrit (Bld) [Volume fraction] 25.2 % Low 35.0 - 47.0 % [facility] Hemoglobin (Bld) [Mass/Vol] 8 g/dL Low 11.7 - 16.0 g/dL [facility] Interpretation and review of laboratory results Abnormal [facility] MCH (RBC) [Entitic mass] 29.1 pg 26.0 - 34.0 pg [facility] MCHC (RBC) [Mass/Vol] 31.7 % 30.5 - 36.0 % [facility] MCV (RBC) [Entitic vol] 91.6 fL 77.0 - 99.0 fL [facility] Platelet mean volume (Bld) [Entitic vol] 10.3 fL 9.0 - 12.7 fL [facility] Platelets (Bld) [#/Vol] 557 10*3/uL High 140 - 440 10*3/uL [facility] RBC (Bld) [#/Vol] 2.75 10*6/uL Low 3.80 - 5.2 0 10*6/uL [facility] WBC (Bld) [#/Vol] 20.4 10*3/uL High 3.6 - 10.7 10*3/uL [facility] Laboratory - Chemistry and C hemistry - challengeon 11-01-2024 Glucose [Mass/Vol] 79 mg/dL 70 - 100 mg/dL [facility] Glucose [Mass/Vol] 75 mg/dL 70 - 100 mg/dL [facility] Glucose [Mass/Vol] 79 mg/dL 70 - 100 mg/dL [facility] Glucose [Mass/Vol] 81 mg/dL 70 - 100 mg/dL [facility] Glucose [Mass/Vol] 68 mg/dL Low 70 - 100 mg/dL [facility] Glucose [Mass/Vol] 78 mg/dL 70 - 100 mg/dL [facility] Laboratory - Coagulationon 0 11-01-2024 PT Coag (Bld) [Time] 11.8 s 9.0 - 12.[address] [facility] Laboratory - Hematology and Cell countson 11-01-2024 Basophils (Bld) [#/Vol] 0.2 10*3/uL 0.0 - 0.2 10*3/uL [facility] Basophils/100 WBC (Bld) 1 % 0 - 2 % [facility] Eosinophils (Bld) [#/Vol] 0.6 10*3/uL High 0.0 - 0.5 10*3/uL [facility] Eosinophils/100 WBC (Bld) 3 % 0 - 6 % [facility] Hypochromia Ql (Bld) Slight Abnormal (none) [facility] Lymphocytes (Bld) [#/Vol] 1.6 10*3/uL 1.0 - 4.3 10*3/uL [facility] Lymphocytes/100 WBC (Bld) 8 % Low 15 - 45 % [facility] Monocytes (Bld) [#/Vol] 0.4 10*3/uL 0.0 - 0.9 10*3/uL [facility] Monocytes/100 WBC (Bld) 2 % Low 5 - 13 % [facility] Neutrophils (Bld) [#/Vol] 17.5 10*3/uL High 1.8 - 7.5 10*3/uL [facility] Ovalocytes LM Ql (Bld) Slight Abnormal (none) [facility] Poikilocytosis LM Ql (Bld) Slight Abnormal (none) [facility] RBC morphology finding Nom (Bld) abnormal [facility] Segmented neutrophils/100 WBC (Bld) 86 % High 38 - 82 % [facility] No Panel Informationon 11-01 Interpretation and review of laboratory results Normal [facility] Interpretation and review of laboratory results Normal [facility] CV EPIPHANY [facility] CV CPACS Interpretation and review of laboratory results Normal [facility] Interpretation and review of laboratory results Normal [facility] Interpretation and review of laboratory results Abnormal [facility] Basophils Manual 1 [facility] Eosinophils Manual 3 High 0 - 1 [facility] Interpretation and review of laboratory results Abnormal [facility] Lymphocytes Manual 8 [facility] Monocytes Manual 2 [facility] Neutrophils Manual 87 [facility] Interpretation and review of laboratory results Normal [facility] No Panel InformationOrdered By: Samra Reveles on 11-01-2024 P [place] 53 degrees [facility]: NC Interval 107 ms [employer] Work Phone: QRS Clayton 10 degrees [employer] Work Phone: QRSD Interval 71 ms [facility] Work Phone: QT Interval 338 [address] [employer] Work Phone: QTC Interval 458 ms [facility] Work Phone: T Wave Clayton 161 degrees [employer] Work Phone: [facility] Work Phone: No Panel InformationOrdered By: Jacob Gutiérrez on 11-01-2024 Left AVF Arterial Prox Anastomosis EDV 0 cm/s [employer] Work Phone: Left AVF Arterial Prox Anastomosis PSV 30.4 cm/s [facility] Work Phone: Left AVF AVG Diameter 1 0.6 cm [facility] Work Phone: Left AVF AVG Diameter 2 0.56 cm S [facility] Work Phone: Left AVF AVG Diameter 3 0.7 cm S [facility] Work Phone: Left AVF AVG Inflow Vol Flow 212.7 mL/min [facility] Work Phone: Left AVF Dist Outflow EDV 0 cm/s [facility] [employer] Phone: Left AVF Dist Outflow PSV 0 cm/s [facility] [employer] Phone: Left AVF Inflow Artery EDV 0 cm/s [facility] [employer] Phone: Left AVF Inflow Artery PSV 64.6 cm/s [facility] [employer] Phone: Left AVF Mid Outflow EDV 0 cm/s [facility] [employer] Phone: Left AVF Mid Outflow PSV 0 cm/s [facility] [employer] Phone: Left AVF Prox Outflow EDV 0 cm/s [facility] [employer] Phone: Left AVF Prox Outflow PSV 0 cm/s [facility] [employer] Phone: Left AVF Venous Dist Anastomosis EDV 11 cm/s [facility] [employer] Phone: Left AVF Venous Dist Anastomosis PSV 21.3 cm/s [facility] [employer] Phone: Left AVG AVF Depth 1 0.32 cm [facility] [employer] Work Phone: Left AVG AVF Depth 2 0.4 cm [employer] Work Phone: Left AVG AVF Depth 3 0.27 cm [facility] [employer] Work Phone: PT Coag (Bld) [Time]on 11-01 INR Coag (PPP) [Relative time] 1.1 {INR} 0.9 - 1.1 [facility] Interpretation and review of laboratory results Normal [facility] Vital signsOrdered By: Samra Reveles on 11-01-2024 Heart rate 110 /min bpm [facility] [employer] Work Phone: XR Chest Single viewon 11-01 [facility] Radiology Study observation (narrative) [facility] XR Chest Single viewOrdered By: Leonila Seth on 11-01-2024 [facility] Work Phone: Basic metabolic 1998 panelon 10-31-2024 Anion gap [Moles/Vol] 10 mmol/L 3 - 13 mmol/L [facility] Calcium [Mass/Vol] 8 mg/dL Low 8.8 - 10. 0 mg/dL [facility] Chloride [Moles/Vol] 110 mmol/L High 98 - 10 7 mmol/L [facility] CO2 [Moles/Vol] 23 mmol/L 23 - 31 mmol/L [facility] Creatinine [Mass/Vol] 4.44 mg/dL High 0.57 - 1.11 mg/dL [facility] GFR/1.73 sq M.predicted (S/P/Bld) [Vol rate/Area] 9.9 mL/min Low - PINF [facility] Glucose [Mass/Vol] 73 mg/dL Low 82 - 115 mg/dL [facility] Interpretation and review of laboratory results Abnormal [facility] Potassium [Moles/Vol] 4.4 mmol/L 3.5 - 5.1 mmol/L [facility] Sodium [Moles/Vol] 143 mmol/L 136 - 145 mmol/L [facility] Urea nitrogen [Mass/Vol] 27 mg/dL High 9 - 23 mg/dL [facility] CBC W Auto Differential pane l (Bld)on 10-31-2024 Erythrocyte distribution width (RBC) [Ratio] 16.7 % High 11.5 - 15.0 % [facility] Hematocrit (Bld) [Volume fraction] 26.6 % Low 35.0 - 47.0 % [facility] Hemoglobin (Bld) [Mass/Vol] 8.5 g/dL Low 11.7 - 16.0 g/dL [facility] MCH (RBC) [Entitic mass] 29.2 pg 26.0 - 34.0 pg [facility] MCHC (RBC) [Mass/Vol] 32 % 30.5 - 36.0 % [facility] MCV (RBC) [Entitic vol] 91.4 fL 77.0 - 99.0 fL [facility] Platelet mean volume (Bld) [Entitic vol] 10.7 fL 9.0 - 12.7 fL [facility] Platelets (Bld) [#/Vol] 531 10*3/uL High 140 - 440 10*3/uL [facility] RBC (Bld) [#/Vol] 2.91 10*6/uL Low 3.80 - 5.2 0 10*6/uL [facility] WBC (Bld) [#/Vol] 17.2 10*3/uL High 3.6 - 10.7 10*3/uL [facility] Laboratory - Chemistry and C hemistry - challengeon 10-31-2024 Glucose [Mass/Vol] 85 mg/dL 70 - 100 mg/dL [facility] Glucose [Mass/Vol] 69 mg/dL Low 70 - 100 mg/dL [facility] Glucose [Mass/Vol] 78 mg/dL 70 - 100 mg/dL [facility] Glucose [Mass/Vol] 76 mg/dL 70 - 100 mg/dL [facility] Glucose [Mass/Vol] 82 mg/dL 70 - 100 mg/dL [facility] Laboratory - Hematology and Cell countson 10-31-2024 Anisocytosis Ql (Bld) Slight Abnormal (none) [facility] Basophils (Bld) [#/Vol] 0.2 10*3/uL 0.0 - 0.2 10*3/uL [facility] Basophils/100 WBC (Bld) 1 % 0 - 2 % [facility] Eosinophils (Bld) [#/Vol] 1.2 10*3/uL High 0.0 - 0.5 10*3/uL [facility] Eosinophils/100 WBC (Bld) 7 % High 0 - 6 % [facility] Lymphocytes (Bld) [#/Vol] 1.5 10*3/uL 1.0 - 4.3 10*3/uL [facility] Lymphocytes/100 WBC (Bld) 9 % Low 15 - 45 % [facility] Monocytes (Bld) [#/Vol] 0.7 10*3/uL 0.0 - 0.9 10*3/uL [facility] Monocytes/100 WBC (Bld) 4 % Low 5 - 13 % [facility] Neutrophils (Bld) [#/Vol] 13.6 10*3/uL High 1.8 - 7.5 10*3/uL [facility] Ovalocytes LM Ql (Bld) Slight Abnormal (none) [facility] Poikilocytosis LM Ql (Bld) Slight Abnormal (none) [facility] RBC morphology finding Nom (Bld) abnormal [facility] Segmented neutrophils/100 WBC (Bld) 79 % 38 - 82 % [facility] No Panel Informationon 10-31 Interpretation and review of laboratory results Normal [facility] Interpretation and review of laboratory results Abnormal [facility] Interpretation and review of laboratory results Normal [facility] Interpretation and review of laboratory results Normal [facility] Basophils Manual 1 [facility] Eosinophils Manual 7 High 0 - 1 [facility] Interpretation and review of laboratory results Abnormal [facility] Lymphocytes Manual 9 [facility] Monocytes Manual 4 [facility] Neutrophils Manual 79 [facility] Interpretation and review of laboratory results Normal [facility] Bacteria identified Anaer cx Nom (Unsp spec)on 10-30-2024 Interpretation and review of laboratory results Normal [facility] Interpretation and review of laboratory results Normal [facility] Basic metabolic 1998 panelon 10-30-2024 Anion gap [Moles/Vol] 7 mmol/L 3 - 13 mmol/L [facility] Calcium [Mass/Vol] 7.7 mg/dL Low 8.8 - 10. 0 mg/dL [facility] Chloride [Moles/Vol] 110 mmol/L High 98 - 10 7 mmol/L [facility] CO2 [Moles/Vol] 26 mmol/L 23 - 31 mmol/L [facility] Creatinine [Mass/Vol] 3.52 mg/dL High 0.57 - 1.11 mg/dL [facility] GFR/1.73 sq M.predicted (S/P/Bld) [Vol rate/Area] 13.1 mL/min Low - PINF [facility] Glucose [Mass/Vol] 79 mg/dL Low 82 - 115 mg/dL [facility] Interpretation and review of laboratory results Abnormal [facility] Potassium [Moles/Vol] 4.2 mmol/L 3.5 - 5.1 mmol/L [facility] Sodium [Moles/Vol] 143 mmol/L 136 - 145 mmol/L [facility] Urea nitrogen [Mass/Vol] 21 mg/dL 9 - 23 mg/dL [facility] CBC W Auto Differential pane l (Bld)on 10-30-2024 Erythrocyte distribution width (RBC) [Ratio] 16.6 % High 11.5 - 15.0 % [facility] Hematocrit (Bld) [Volume fraction] 26.3 % Low 35.0 - 47.0 % [facility] Hemoglobin (Bld) [Mass/Vol] 8.3 g/dL Low 11.7 - 16.0 g/dL [facility] MCH (RBC) [Entitic mass] 29.1 pg 26.0 - 34.0 pg [facility] MCHC (RBC) [Mass/Vol] 31.6 % 30.5 - 36.0 % [facility] MCV (RBC) [Entitic vol] 92.3 fL 77.0 - 99.0 fL [facility] Platelet mean volume (Bld) [Entitic vol] 10.6 fL 9.0 - 12.7 fL [facility] Platelets (Bld) [#/Vol] 502 10*3/uL High 140 - 440 10*3/uL [facility] RBC (Bld) [#/Vol] 2.85 10*6/uL Low 3.80 - 5.2 0 10*6/uL [facility] WBC (Bld) [#/Vol] 18.2 10*3/uL High 3.6 - 10.7 10*3/uL [facility] Laboratory - Chemistry and C hemistry - challengeon 10-30-2024 Glucose [Mass/Vol] 79 mg/dL 70 - 100 mg/dL [facility] Glucose [Mass/Vol] 83 mg/dL 70 - 100 mg/dL [facility] Glucose [Mass/Vol] 92 mg/dL 70 - 100 mg/dL [facility] Glucose [Mass/Vol] 75 mg/dL 70 - 100 mg/dL [facility] Laboratory - Hematology and Cell countson 10-30-2024 Anisocytosis Ql (Bld) Slight Abnormal (none) [facility] Eosinophils (Bld) [#/Vol] 0.7 10*3/uL High 0.0 - 0.5 10*3/uL [facility] Eosinophils/100 WBC (Bld) 4 % 0 - 6 % [facility] Lymphocytes (Bld) [#/Vol] 0.7 10*3/uL Low 1.0 - 4.3 10*3/uL [facility] Lymphocytes/100 WBC (Bld) 4 % Low 15 - 45 % [facility] Monocytes (Bld) [#/Vol] 0.5 10*3/uL 0.0 - 0.9 10*3/uL [facility] Monocytes/100 WBC (Bld) 3 % Low 5 - 13 % [facility] Neutrophils (Bld) [#/Vol] 16.2 10*3/uL High 1.8 - 7.5 10*3/uL [facility] RBC morphology finding Nom (Bld) abnormal [facility] Segmented neutrophils/100 WBC (Bld) 89 % High 38 - 82 % [facility] Laboratory - Microbiology an d Antimicrobial susceptibilityon 10-30-2024 Bacteria identified Anaer cx Nom (Unsp spec) No growth at 5 days [facility] Bacteria identified Anaer cx Nom (Unsp spec) No growth at 5 days [facility] No Panel Informationon 10-30 Interpretation and review of laboratory results Normal [facility] Interpretation and review of laboratory results Normal [facility] Interpretation and review of laboratory results Normal [facility] Eosinophils Manual 4 High 0 - 1 [facility] Interpretation and review of laboratory results Abnormal [facility] Lymphocytes Manual 4 [facility] Monocytes Manual 3 [facility] Neutrophils Manual 89 [facility] Interpretation and review of laboratory results Normal [facility] Basic metabolic 1998 panelon 10-29-2024 Anion gap [Moles/Vol] 11 mmol/L 3 - 13 mmol/L [facility] Calcium [Mass/Vol] 7.9 mg/dL Low 8.8 - 10. 0 mg/dL [facility] Chloride [Moles/Vol] 108 mmol/L High 98 - 10 7 mmol/L [facility] CO2 [Moles/Vol] 24 mmol/L 23 - 31 mmol/L [facility] Creatinine [Mass/Vol] 2.73 mg/dL High 0.57 - 1.11 mg/dL [facility] GFR/1.73 sq M.predicted (S/P/Bld) [Vol rate/Area] 17.8 mL/min Low - PINF [facility] Glucose [Mass/Vol] 85 mg/dL 82 - 115 mg/dL [facility] Interpretation and review of laboratory results Abnormal [facility] Potassium [Moles/Vol] 3.9 mmol/L 3.5 - 5.1 mmol/L [facility] Sodium [Moles/Vol] 143 mmol/L 136 - 145 mmol/L [facility] Urea nitrogen [Mass/Vol] 14 mg/dL 9 - 23 mg/dL [facility] CBC W Auto Differential pane l (Bld)on 10-29-2024 Erythrocyte distribution width (RBC) [Ratio] 16.6 % High 11.5 - 15.0 % [facility] Hematocrit (Bld) [Volume fraction] 27.2 % Low 35.0 - 47.0 % [facility] Hemoglobin (Bld) [Mass/Vol] 8.8 g/dL Low 11.7 - 16.0 g/dL [facility] MCH (RBC) [Entitic mass] 29.1 pg 26.0 - 34.0 pg [facility] MCHC (RBC) [Mass/Vol] 32.4 % 30.5 - 36.0 % [facility] MCV (RBC) [Entitic vol] 90.1 fL 77.0 - 99.0 fL [facility] Platelet mean volume (Bld) [Entitic vol] 10.6 fL 9.0 - 12.7 fL [facility] Platelets (Bld) [#/Vol] 464 10*3/uL High 140 - 440 10*3/uL [facility] RBC (Bld) [#/Vol] 3.02 10*6/uL Low 3.80 - 5.2 0 10*6/uL [facility] WBC (Bld) [#/Vol] 22.8 10*3/uL High 3.6 - 10.7 10*3/uL [facility] Laboratory - Chemistry and C hemistry - challengeon 10-29-2024 Glucose [Mass/Vol] 119 mg/dL High 70 - 100 mg/dL [facility] Glucose [Mass/Vol] 76 mg/dL 70 - 100 mg/dL [facility] Glucose [Mass/Vol] 66 mg/dL Low 70 - 100 mg/dL [facility] Glucose [Mass/Vol] 80 mg/dL 70 - 100 mg/dL [facility] Glucose [Mass/Vol] 85 mg/dL 70 - 100 mg/dL [facility] Laboratory - Hematology and Cell countson 10-29-2024 Eosinophils (Bld) [#/Vol] 0.9 10*3/uL High 0.0 - 0.5 10*3/uL [facility] Eosinophils/100 WBC (Bld) 4 % 0 - 6 % [facility] Lymphocytes (Bld) [#/Vol] 1.4 10*3/uL 1.0 - 4.3 10*3/uL [facility] Lymphocytes/100 WBC (Bld) 6 % Low 15 - 45 % [facility] Monocytes (Bld) [#/Vol] 0.9 10*3/uL 0.0 - 0.9 10*3/uL [facility] Monocytes/100 WBC (Bld) 4 % Low 5 - 13 % [facility] Neutrophils (Bld) [#/Vol] 19.6 10*3/uL High 1.8 - 7.5 10*3/uL [facility] RBC morphology finding Nom (Bld) Normal [facility] Segmented neutrophils/100 WBC (Bld) 86 % High 38 - 82 % [facility] No Panel Informationon 10-29 Interpretation and review of laboratory results Abnormal [facility] [place] Interpretation and review of laboratory results Normal [facility] Interpretation and review of laboratory results Abnormal [facility] Eosinophils Manual 4 High 0 - 1 [facility] Interpretation and review of laboratory results Abnormal [facility] Lymphocytes Manual 6 [facility] Monocytes Manual 4 [facility] Neutrophils Manual 87 [facility] Interpretation and review of laboratory results Normal [facility] [place] Interpretation and review of laboratory results Normal [facility] [place] Bacteria identified Cx Nom ( Bld)on 10-28-2024 Interpretation and review of laboratory results Normal [facility] Basic metabolic 1998 panelon 10-28-2024 Anion gap [Moles/Vol] 11 mmol/L 3 - 13 mmol/L [facility] Calcium [Mass/Vol] 8 mg/dL Low 8.8 - 10. 0 mg/dL [facility] Chloride [Moles/Vol] 109 mmol/L High 98 - 10 7 mmol/L [facility] CO2 [Moles/Vol] 24 mmol/L 23 - 31 mmol/L [facility] Creatinine [Mass/Vol] 3.83 mg/dL High 0.57 - 1.11 mg/dL [facility] GFR/1.73 sq M.predicted (S/P/Bld) [Vol rate/Area] 11.8 mL/min Low - PINF [facility] Glucose [Mass/Vol] 87 mg/dL 82 - 115 mg/dL [facility] Interpretation and review of laboratory results Abnormal [facility] Potassium [Moles/Vol] 3.9 mmol/L 3.5 - 5.1 mmol/L [facility] Sodium [Moles/Vol] 144 mmol/L 136 - 145 mmol/L [facility] Urea nitrogen [Mass/Vol] 24 mg/dL High 9 - 23 mg/dL [facility] CBC W Auto Differential pane l (Bld)on 10-28-2024 Erythrocyte distribution width (RBC) [Ratio] 16.4 % High 11.5 - 15.0 % [facility] Hematocrit (Bld) [Volume fraction] 28 % Low 35.0 - 47.0 % [facility] Hemoglobin (Bld) [Mass/Vol] 9.3 g/dL Low 11.7 - 16.0 g/dL [facility] MCH (RBC) [Entitic mass] 29.5 pg 26.0 - 34.0 pg [facility] MCHC (RBC) [Mass/Vol] 33.2 % 30.5 - 36.0 % [facility] MCV (RBC) [Entitic vol] 88.9 fL 77.0 - 99.0 fL [facility] Platelet mean volume (Bld) [Entitic vol] 10.7 fL 9.0 - 12.7 fL [facility] Platelets (Bld) [#/Vol] 460 10*3/uL High 140 - 440 10*3/uL [facility] RBC (Bld) [#/Vol] 3.15 10*6/uL Low 3.80 - 5.2 0 10*6/uL [facility] WBC (Bld) [#/Vol] 26.6 10*3/uL High 3.6 - 10.7 10*3/uL [facility] Laboratory - Chemistry and C hemistry - challengeon 10-28-2024 Glucose [Mass/Vol] 102 mg/dL High 70 - 100 mg/dL [facility] Glucose [Mass/Vol] 101 mg/dL High 70 - 100 mg/dL [facility] Glucose [Mass/Vol] 90 mg/dL 70 - 100 mg/dL [facility] Glucose [Mass/Vol] 98 mg/dL 70 - 100 mg/dL [facility] Glucose [Mass/Vol] 92 mg/dL 70 - 100 mg/dL [facility] Laboratory - Hematology and Cell countson 10-28-2024 Anisocytosis Ql (Bld) Slight Abnormal (none) [facility] Basophils (Bld) [#/Vol] 0.3 10*3/uL High 0.0 - 0.2 10*3/uL [facility] Basophils/100 WBC (Bld) 1 % 0 - 2 % [facility] Eosinophils (Bld) [#/Vol] 0.5 10*3/uL 0.0 - 0.5 10*3/uL [facility] Eosinophils/100 WBC (Bld) 2 % 0 - 6 % [facility] Lymphocytes (Bld) [#/Vol] 1.9 10*3/uL 1.0 - 4.3 10*3/uL [facility] Lymphocytes/100 WBC (Bld) 7 % Low 15 - 45 % [facility] Monocytes (Bld) [#/Vol] 1.1 10*3/uL High 0.0 - 0.9 10*3/uL [facility] Monocytes/100 WBC (Bld) 4 % Low 5 - 13 % [facility] Neutrophils (Bld) [#/Vol] 22.6 10*3/uL High 1.8 - 7.5 10*3/uL [facility] RBC morphology finding Nom (Bld) abnormal [facility] Segmented neutrophils/100 WBC (Bld) 85 % High 38 - 82 % [facility] Laboratory - Microbiology an d Antimicrobial susceptibilityon 10-28-2024 Bacteria identified Cx Nom (Bld) No growth at 5 days [facility] No Panel Informationon 10-28 Interpretation and review of laboratory results Abnormal [facility] [place] Interpretation and review of laboratory results Abnormal [facility] [place] Interpretation and review of laboratory results Normal [facility] [place] Basophils Manual 1 [facility] Eosinophils Manual 2 High 0 - 1 [facility] Interpretation and review of laboratory results Abnormal [facility] Lymphocytes Manual 7 [facility] Monocytes Manual 4 [facility] Neutrophils Manual 88 [facility] Interpretation and review of laboratory results Normal [facility] [place] Interpretation and review of laboratory results Normal [facility] [place] Bacteria identified Cx Nom ( Bld)on 10-27-2024 Interpretation and review of laboratory results Normal [facility] [place] Laboratory - Chemistry and C hemistry - challengeon 10-27-2024 Glucose [Mass/Vol] 100 mg/dL 70 - 100 mg/dL [facility] Glucose [Mass/Vol] 72 mg/dL 70 - 100 mg/dL [facility] Laboratory - Microbiology an d Antimicrobial susceptibilityon 10-27-2024 Bacteria identified Cx Nom (Bld) No growth at 5 days [facility] No Panel Informationon 10-27 Interpretation and review of laboratory results Normal [facility] CBC panel Auto (Bld)on 09-06 Erythrocyte distribution width (RBC) [Ratio] 15.5 % High 11.5 - 14.5 % [facility] Hematocrit (Bld) [Volume fraction] 24.9 % Low 36.0 - 46.0 % [facility] Hemoglobin (Bld) [Mass/Vol] 7.6 g/dL Low 12.0 - 16.0 g/dL [facility] Interpretation and review of laboratory results Abnormal [facility] MCH (RBC) [Entitic mass] 30.8 pg 26.0 - 34.0 pg [facility] MCHC (RBC) [Mass/Vol] 30.5 g/dL Low 32.0 - 36.0 g/dL [facility] MCV (RBC) [Entitic vol] 101 fL High 80 - 100 fL [facility] Nucleated RBC/100 WBC (Bld) [Ratio] 0 % [facility] Platelets (Bld) [#/Vol] 488 10*3/uL High [facility] RBC (Bld) [#/Vol] 2.47 10*6/uL Low [facility] WBC (Bld) [#/Vol] 7.9 10*3/uL [facility] Erythrocyte distribution width (RBC) [Ratio] 15.5 % High 11.5-14.5 [facility] Comment on above: Performed By: #### 2 777-1 #### KELECHI Garcia ([id number]) [facility] ([facility]) [id number] [place] [address] 83313 Hematocrit (Bld) [Volume fraction] 24.9 % Low 36.0-46.0 [facility] Comment on above: Performed By: #### 2 777-1 #### KELECHI Garcia ([id number]) [facility] ([facility]) [id number] [place] [address] 74076 Hemoglobin (Bld) [Mass/Vol] 7.6 g/dL Low 12.0-16.0 [facility] Comment on above: Performed By: #### 2 777-1 #### KELECHI Garcia ([id number]) [facility] ([facility]) [address] [place] [address] 57200 MCH (RBC) [Entitic mass] 30.8 pg Normal 26.0-34.0 [facility] Comment on above: Performed By: #### 2 777-1 #### KELECHI Garcia ([id number]) [facility] ([facility]) [address] [place] [address] 26354 MCHC (RBC) [Mass/Vol] 30.5 g/dL Low 32.0-36.0 [facility] Comment on above: Performed By: #### 2 777-1 #### KELECHI Garcia ([id number]) [facility] ([facility]) [id number] [place] [address] 56055 MCV (RBC) [Entitic vol] 101 fL High 80-100 [facility] Comment on above: Performed By: #### 2 777-1 #### KELECHI Garcia ([id number]) [facility] ([facility]) [address] [place] [address] 96493 Nucleated RBC/100 WBC (Bld) [Ratio] 0.0 /100 WBCs Normal 0.0-0.0 [facility] Comment on above: Performed By: #### 2 777-1 #### KELECHI Garcia ([id number]) [facility] ([facility]) [address] [place] [address] Platelets (Bld) [#/Vol] 488 x10*3/uL High 150-450 [facility] Comment on above: Performed By: #### 2 777-1 #### KELECHI Garcia ([id number]) [facility] ([facility]) [address] [place] [address] 71180 RBC (Bld) [#/Vol] 2.47 x10*6/uL Low 4.00-5.20 [facility] Comment on above: Performed By: #### 2 777-1 #### KLEECHI Garcia ([id number]) [facility] ([facility]) [address] [place] [address] 34721 WBC (Bld) [#/Vol] 7.9 x10*3/uL Normal 4.4-11.3 [facility] Comment on above: Performed By: #### 2 777-1 #### KELECHI Garcia ([id number]) [facility] ([facility]) [address] [place] [address] 22444 Glucose Test strip manual (B ld) [Mass/Vol]on 09-06-2024 Glucose [Mass/Vol] 121 mg/dL High 74 - 99 mg/dL [facility] Interpretation and review of laboratory results Abnormal [facility] Glucose [Mass/Vol] 121 mg/dL High 74-[address] [facility] Comment on above: Performed By: #### 2 777-1 #### KELECHI Garcia ([id number]) [facility] ([facility]) [address] [place] [address] 89936 Renal function 2000 panelon 09-06-2024 Albumin BCP dye [Mass/Vol] 3.2 g/dL Low 3.4 - 5.0 g/dL [facility] Anion gap [Moles/Vol] 16 mmol/L 10 - 2 0 mmol/L [facility] Calcium [Mass/Vol] 8.1 mg/dL Low 8.6 - 10. 6 mg/dL [facility] Chloride [Moles/Vol] 100 mmol/L 98 - 10 7 mmol/L [facility] CO2 [Moles/Vol] 31 mmol/L 21 - 32 mmol/L [facility] Creatinine [Mass/Vol] 5.52 mg/dL High 0.50 - 1.05 mg/dL [facility] GFR/1.73 sq M.predicted among non-blacks MDRD (S/P/Bld) [Vol rate/Area] 8 mL/min/{1.73_m2} Low - PINF [facility] Comment on above: Calculations of katy mated GFR are performed using the 2020 CKD-EPI Study Refit equation without the race variable for the IDMS-Traceable creatinine methods. https://jasn.asnjournals.org/content/early/ASN.2020 303164 Glucose [Mass/Vol] 118 mg/dL High 74 - 99 mg/dL [facility] Interpretation and review of laboratory results Abnormal [facility] Phosphate [Mass/Vol] 2.2 mg/dL Low 2.5 - 4 .9 mg/dL [facility] Potassium [Moles/Vol] 3.9 mmol/L 3.5 - 5.3 mmol/L [facility] Sodium [Moles/Vol] 143 mmol/L 136 - 145 mmol/L [facility] Urea nitrogen [Mass/Vol] 35 mg/dL High 6 - 23 mg/dL [facility] Albumin BCP dye [Mass/Vol] 3.2 g/dL Low 3.4-5.0 [facility] Comment on above: Performed By: #### 2 777-1 #### KELECHI Garcia ([id number]) [facility] ([facility]) [address] [place] [address] 40006 Anion gap [Moles/Vol] 16 mmol/L Normal 10-20 [facility] Comment on above: Performed By: #### 2 777-1 #### KELECHI Garcia ([id number]) [facility] ([facility]) [address] [place] [address] Calcium [Mass/Vol] 8.1 mg/dL Low 8.6-10.[address] [facility] Comment on above: Performed By: #### 2 777-1 #### KELECHI VELÁZQUEZ L ([id number]) [facility] ([facility]) [address] [place] [address] Chloride [Moles/Vol] 100 mmol/L Normal 98-107 [facility] Comment on above: Performed By: #### 2 777-1 #### KELECHI VELEZMODEBBI L ([id number]) [facility] ([facility]) [address] [place] [address] CO2 [Moles/Vol] 31 mmol/L Normal 21-32 [facility] Comment on above: Performed By: #### 2 777-1 #### KELECHI VELÁZQUEZ L ([id number]) [facility] ([facility]) [address] [place] [address] Creatinine [Mass/Vol] 5.52 mg/dL High 0.50-1.05 [facility] Comment on above: Performed By: #### 2 777-1 #### KELECHI TAOTZZAMZAM L ([id number]) [facility] ([facility]) [address] [place] [address] Glomerular filtration rate/1.73 sq M.predicted 8 mL/min/1.73m*2 Low >60 [facility] Comment on above: Result Comment: Calc ulations of estimated GFR are performed using the 2020 CKD-EPI Study Refit equation without the race variable for the IDMS-Traceable creatinine methods. https://jasn.asnjournals.org/content/early//ASN.2020 483099 Performed By: #### 2 777-1 #### KELECHI VELÁZQUEZ L ([id number]) [facility] ([facility]) [address] [place] [address] Glucose [Mass/Vol] 118 mg/dL High 74-[address] [facility] Comment on above: Performed By: #### 2 777-1 #### KELECHI VELÁZQUEZ L ([id number]) [facility] ([facility]) [address] [place] [address] Phosphate [Mass/Vol] 2.2 mg/dL Low 2.5-4.9 [facility] Comment on above: Performed By: #### 2 777-1 #### KELECIH VELÁZQUEZ L ([id number]) [facility] ([facility]) [address] [place] [address] Potassium [Moles/Vol] 3.9 mmol/L Normal 3.5-5.3 [facility] Comment on above: Performed By: #### 2 777-1 #### KELECHI VELÁZQUEZ L ([id number]) [facility] ([facility]) [address] [place] [address] 95502 Sodium [Moles/Vol] 143 mmol/L Normal 136-[address] [facility] Comment on above: Performed By: #### 2 777-1 #### KELECHI VELÁZQUEZ L ([id number]) [facility] ([facility]) [id number] [place] [address] 77058 Urea nitrogen [Mass/Vol] 35 mg/dL High 6-23 [facility] Comment on above: Performed By: #### 2 777-1 #### KELECHI VELÁZQUEZ L ([id number]) [facility] ([facility]) [id number] [place] [address] 23706 CBC W Auto Differential pane l (Bld)on 09-05-2024 Basophils (Bld) [#/Vol] 0.04 10*3/uL [facility] Basophils/100 WBC (Bld) 0.6 % 0.0 - 2.0 % [facility] Eosinophils (Bld) [#/Vol] 0.33 10*3/uL [facility] Eosinophils/100 WBC (Bld) 4.7 % 0.0 - 6.0 % [facility] Erythrocyte distribution width (RBC) [Ratio] 15.1 % High 11.5 - 14.5 % [facility] Hematocrit (Bld) [Volume fraction] 22.5 % Low 36.0 - 46.0 % [facility] Hemoglobin (Bld) [Mass/Vol] 7.2 g/dL Low 12.0 - 16.0 g/dL [facility] Immature granulocytes (Bld) [#/Vol] 0.06 10*3/uL [facility] Immature granulocytes/100 WBC (Bld) 0.9 % 0.0 - 0.9 % [facility] Comment on above: Immature Granulocyte Count (IG) includes promyelocytes, myelocytes and metamyelocytes but does not include bands. Percent differential counts (%) should be interpreted in the context of the absolute cell counts (cells/UL). Interpretation and review of laboratory results Abnormal [facility] Lymphocytes (Bld) [#/Vol] 1 10*3/uL [facility] Lymphocytes/100 WBC (Bld) 14.4 % 13.0 - 44.0 % [facility] MCH (RBC) [Entitic mass] 31 pg 26.0 - 34.0 pg [facility] MCHC (RBC) [Mass/Vol] 32 g/dL 32.0 - 36.0 g/dL [facility] MCV (RBC) [Entitic vol] 97 fL 80 - 100 fL [facility] Monocytes (Bld) [#/Vol] 0.56 10*3/uL [facility] Monocytes/100 WBC (Bld) 8 % 2.0 - 10.0 % [facility] Neutrophils (Bld) [#/Vol] 4.97 10*3/uL [facility] Comment on above: Percent differential counts (%) should be interpreted in the context of the absolute cell counts (cells/uL). Neutrophils/100 WBC (Bld) 71.4 % 40.0 - 80.0 % [facility] Nucleated RBC/100 WBC (Bld) [Ratio] 0 % [facility] Platelets (Bld) [#/Vol] 404 10*3/uL [facility] RBC (Bld) [#/Vol] 2.32 10*6/uL Low [facility] WBC (Bld) [#/Vol] 7 10*3/uL [facility] Basophils (Bld) [#/Vol] 0.04 x10*3/uL Normal 0.00-0.10 [facility] Comment on above: Performed By: #### 2 777-1 #### KELECHI Garcia ([id number]) [facility] ([facility]) [id number] [place] [address] 14435 Basophils/100 WBC (Bld) 0.6 % Normal 0.0-2.0 [facility] Comment on above: Performed By: #### 2 777-1 #### KELECHI Garcia ([id number]) [facility] ([facility]) [address] [place] [address] 81066 Eosinophils (Bld) [#/Vol] 0.33 x10*3/uL Normal 0.00-0.40 [facility] Comment on above: Performed By: #### 2 777-1 #### KELECHI Garcia ([id number]) [facility] ([facility]) [address] [place] [address] 51468 Eosinophils/100 WBC (Bld) 4.7 % Normal 0.0-6.0 [facility] Comment on above: Performed By: #### 2 777-1 #### KELECHI Garcia ([id number]) [facility] ([facility]) [address] [place] [address] 85253 Erythrocyte distribution width (RBC) [Ratio] 15.1 % High 11.5-14.5 [facility] Comment on above: Performed By: #### 2 777-1 #### KELECHI Garcia ([id number]) [facility] ([facility]) [address] [place] [address] 44196 Hematocrit (Bld) [Volume fraction] 22.5 % Low 36.0-46.0 [facility] Comment on above: Performed By: #### 2 777-1 #### KELECHI Garcia ([id number]) [facility] ([facility]) [address] [place] [address] 03298 Hemoglobin (Bld) [Mass/Vol] 7.2 g/dL Low 12.0-16.0 [facility] Comment on above: Performed By: #### 2 777-1 #### KELECHI Garcia ([id number]) [facility] ([facility]) [id number] [place] [address] 76166 Immature granulocytes (Bld) [#/Vol] 0.06 x10*3/uL Normal 0.00-0.50 [facility] Comment on above: Performed By: #### 2 777-1 #### KELECHI VELÁZQUEZ L ([id number]) [facility] ([facility]) [id number] [place] [address] 62912 Immature granulocytes/100 WBC (Bld) 0.9 % Normal 0.0-0.9 [facility] Comment on above: Result Comment: Jannie ture Granulocyte Count (IG) includes promyelocytes, myelocytes and metamyelocytes but does not include bands. Percent differential counts (%) should be interpreted in the context of the absolute cell counts (cells/UL). Performed By: #### 2 777-1 #### KELECHI Garcia ([id number]) [facility] ([facility]) [address] [place] [address] 21991 Lymphocytes (Bld) [#/Vol] 1.00 x10*3/uL Normal 0.80-3.00 [facility] Comment on above: Performed By: #### 2 777-1 #### KELECHI Garcia ([id number]) [facility] ([facility]) [id number] [place] [address] 77346 Lymphocytes/100 WBC (Bld) 14.4 % Normal 13.0-44.0 [facility] Comment on above: Performed By: #### 2 777-1 #### KELECHI Garcia ([id number]) [facility] ([facility]) [address] [place] [address] 02489 MCH (RBC) [Entitic mass] 31.0 pg Normal 26.0-34.0 [facility] Comment on above: Performed By: #### 2 777-1 #### KELECHI VELÁZQUEZ L ([id number]) [facility] ([facility]) [address] [place] [address] MCHC (RBC) [Mass/Vol] 32.0 g/dL Normal 32.0-36.0 [facility] Comment on above: Performed By: #### 2 777-1 #### KELECHI Garcia ([id number]) [facility] ([facility]) [address] [place] [address] 88879 MCV (RBC) [Entitic vol] 97 fL Normal 80-100 [facility] Comment on above: Performed By: #### 2 777-1 #### KELECHI Garcia ([id number]) [facility] ([facility]) [address] [place] [address] 02432 Monocytes (Bld) [#/Vol] 0.56 x10*3/uL Normal 0.05-0.80 [facility] Comment on above: Performed By: #### 2 777-1 #### KELECHI Garcia ([id number]) [facility] ([facility]) [id number] [place] [address] 81733 Monocytes/100 WBC (Bld) 8.0 % Normal 2.0-10.0 [facility] Comment on above: Performed By: #### 2 777-1 #### KELECHI Garcia ([id number]) [facility] ([facility]) [address] [place] [address] 47240 Neutrophils (Bld) [#/Vol] 4.97 x10*3/uL Normal 1.60-5.50 [facility] Comment on above: Result Comment: Perc ent differential counts (%) should be interpreted in the context of the absolute cell counts (cells/uL). Performed By: #### 2 777-1 #### KELECHI Garcia ([id number]) [facility] ([facility]) [address] [place] [address] Neutrophils/100 WBC (Bld) 71.4 % Normal 40.0-80.0 [facility] Comment on above: Performed By: #### 2 777-1 #### KELECHI Garcia ([id number]) [facility] ([facility]) [address] [place] [address] Nucleated RBC/100 WBC (Bld) [Ratio] 0.0 /100 WBCs Normal 0.0-0.0 [facility] Comment on above: Performed By: #### 2 777-1 #### KELECHI Garcia ([id number]) [facility] ([facility]) [address] [place] [address] Platelets (Bld) [#/Vol] 404 x10*3/uL Normal 150-450 [facility] Comment on above: Performed By: #### 2 777-1 #### KELECHI Garcia ([id number]) [facility] ([facility]) [id number] [place] [address] 82696 RBC (Bld) [#/Vol] 2.32 x10*6/uL Low 4.00-5.20 [facility] Comment on above: Performed By: #### 2 777-1 #### KELECHI Garcia ([id number]) [facility] ([facility]) [id number] [place] [address] 97190 WBC (Bld) [#/Vol] 7.0 x10*3/uL Normal 4.4-11.3 [facility] Comment on above: Performed By: #### 2 777-1 #### KELECHI Garcia ([id number]) [facility] ([facility]) [address] [place] [address] 68919 Renal function 2000 panelOrd ered By: Alice Juan on 09-05-2024 Albumin BCP dye [Mass/Vol] 2.9 g/dL Low 3.4 - 5.0 g/dL [facility] Anion gap [Moles/Vol] 17 mmol/L 10 - 2 0 mmol/L [facility] Calcium [Mass/Vol] 8 mg/dL Low 8.6 - 10. 6 mg/dL [facility] Chloride [Moles/Vol] 98 mmol/L 98 - 10 7 mmol/L [facility] CO2 [Moles/Vol] 27 mmol/L 21 - 32 mmol/L [facility] Creatinine [Mass/Vol] 7.78 mg/dL High 0.50 - 1.05 mg/dL [facility] GFR/1.73 sq M.predicted among non-blacks MDRD (S/P/Bld) [Vol rate/Area] 5 mL/min/{1.73_m2} Low - PINF [facility] Comment on above: Calculations of katy mated GFR are performed using the 2020 CKD-EPI Study Refit equation without the race variable for the IDMS-Traceable creatinine methods. https://jasn.asnjournals.org/content/early/ASN.2020 015333 Glucose [Mass/Vol] 92 mg/dL 74 - 99 mg/dL [facility] Interpretation and review of laboratory results Abnormal [facility] Phosphate [Mass/Vol] 2.3 mg/dL Low 2.5 - 4 .9 mg/dL [facility] Potassium [Moles/Vol] 4.5 mmol/L 3.5 - 5.3 mmol/L [facility] Sodium [Moles/Vol] 137 mmol/L 136 - 145 mmol/L [facility] Urea nitrogen [Mass/Vol] 61 mg/dL High 6 - 23 mg/dL [facility] Renal function 2000 panelon 09-05-2024 Albumin BCP dye [Mass/Vol] 2.9 g/dL Low 3.4-5.0 [facility] Comment on above: Performed By: #### 2 777-1 #### KELECHI Garcia ([id number]) [facility] ([facility]) [id number] [place] [address] 32738 Anion gap [Moles/Vol] 17 mmol/L Normal 10-20 [facility] Comment on above: Performed By: #### 2 777-1 #### KELECHI Garcia ([id number]) [facility] ([facility]) [id number] [place] [address] 34020 Calcium [Mass/Vol] 8.0 mg/dL Low 8.6-10.[address] [facility] Comment on above: Performed By: #### 2 777-1 #### KELECHI Garcia ([id number]) [facility] ([facility]) [address] [place] [address] Chloride [Moles/Vol] 98 mmol/L Normal 98-107 [facility] Comment on above: Performed By: #### 2 777-1 #### KELECHI WEBSTERER L ([id number]) [facility] ([facility]) [address] [place] [address] CO2 [Moles/Vol] 27 mmol/L Normal 21-32 [facility] Comment on above: Performed By: #### 2 777-1 #### KELECHI VELÁZQUEZ L ([id number]) [facility] ([facility]) [address] [place] [address] Creatinine [Mass/Vol] 7.78 mg/dL High 0.50-1.05 [facility] Comment on above: Performed By: #### 2 777-1 #### KELECHI VELÁZQUEZ L ([id number]) [facility] ([facility]) [address] [place] [address] Glomerular filtration rate/1.73 sq M.predicted 5 mL/min/1.73m*2 Low >60 [facility] Comment on above: Result Comment: Calc ulations of estimated GFR are performed using the 2020 CKD-EPI Study Refit equation without the race variable for the IDMS-Traceable creatinine methods. https://jasn.asnjournals.org/content//ASN.2020 172800 Performed By: #### 2 777-1 #### KELECHI VELÁZQUEZ L ([id number]) [facility] ([facility]) [address] [place] [address] Glucose [Mass/Vol] 92 mg/dL Normal 74-[address] [facility] Comment on above: Performed By: #### 2 777-1 #### KELECHI VELÁZQUEZ L ([id number]) [facility] ([facility]) [address] [place] [address] Phosphate [Mass/Vol] 2.3 mg/dL Low 2.5-4.9 [facility] Comment on above: Performed By: #### 2 777-1 #### KELECHI VELÁZQUEZ L ([id number]) [facility] ([facility]) [address] [place] [address] Potassium [Moles/Vol] 4.5 mmol/L Normal 3.5-5.3 [facility] Comment on above: Performed By: #### 2 777-1 #### KELECHI WEBSTERER L ([id number]) [facility] ([facility]) [address] [place] [address] Sodium [Moles/Vol] 137 mmol/L Normal 136-[address] [facility] Comment on above: Performed By: #### 2 777-1 #### KELECHI VELÁZQUEZ L ([id number]) [facility] ([facility]) [id number] [place] [address] 55860 Urea nitrogen [Mass/Vol] 61 mg/dL High 6-23 [facility] Comment on above: Performed By: #### 2 777-1 #### KELECHI TAOTZER L ([id number]) [facility] ([facility]) [id number] [place] [address] 48263 Basic metabolic 2000 panelon 09-04-2024 Anion gap [Moles/Vol] 16 mmol/L 10 - 2 0 mmol/L [facility] Calcium [Mass/Vol] 8.7 mg/dL 8.6 - 10. 6 mg/dL [facility] Chloride [Moles/Vol] 94 mmol/L Low 98 - 10 7 mmol/L [facility] CO2 [Moles/Vol] 30 mmol/L 21 - 32 mmol/L [facility] Creatinine [Mass/Vol] 6.79 mg/dL High 0.50 - 1.05 mg/dL [facility] GFR/1.73 sq M.predicted among non-blacks MDRD (S/P/Bld) [Vol rate/Area] 6 mL/min/{1.73_m2} Low - PINF [facility] Comment on above: Calculations of katy mated GFR are performed using the 2020 CKD-EPI Study Refit equation without the race variable for the IDMS-Traceable creatinine methods. https://jasn.asnjournals.org/content//ASN.2020 861268 Glucose [Mass/Vol] 171 mg/dL High 74 - 99 mg/dL [facility] Interpretation and review of laboratory results Abnormal [facility] Potassium [Moles/Vol] 4.1 mmol/L 3.5 - 5.3 mmol/L [facility] Sodium [Moles/Vol] 136 mmol/L 136 - 145 mmol/L [facility] Urea nitrogen [Mass/Vol] 58 mg/dL High 6 - 23 mg/dL [facility] Anion gap [Moles/Vol] 16 mmol/L Normal 10-20 [facility] Comment on above: Performed By: #### 2 777-1 #### KELECHI VELÁZQUEZ L ([id number]) [facility] ([facility]) [id number] [place] [address] 69723 Calcium [Mass/Vol] 8.7 mg/dL Normal 8.6-10.[address] [facility] Comment on above: Performed By: #### 2 777-1 #### KELECHI VELEZMOTZER L ([id number]) [facility] ([facility]) [id number] [place] [address] 37134 Chloride [Moles/Vol] 94 mmol/L Low 98-107 [facility] Comment on above: Performed By: #### 2 777-1 #### KELECHI VELEZMOTZER L ([id number]) [facility] ([facility]) [id number] [place] [address] 09546 CO2 [Moles/Vol] 30 mmol/L Normal 21-32 [facility] Comment on above: Performed By: #### 2 777-1 #### KELECHI VELEZMOTZER L ([id number]) [facility] ([facility]) [address] [place] [address] 47815 Creatinine [Mass/Vol] 6.79 mg/dL High 0.50-1.05 [facility] Comment on above: Performed By: #### 2 777-1 #### KELECHI WEBSTERER L ([id number]) [facility] ([facility]) [address] [place] [address] 83343 Glomerular filtration rate/1.73 sq M.predicted 6 mL/min/1.73m*2 Low >60 [facility] Comment on above: Result Comment: Calc ulations of estimated GFR are performed using the 2020 CKD-EPI Study Refit equation without the race variable for the IDMS-Traceable creatinine methods. https://jasn.asnjournals.org/content/early//ASN.2020 198194 Performed By: #### 2 777-1 #### KELECHI VELÁZQUEZ L ([id number]) [facility] ([facility]) [address] [place] [address] 38055 Glucose [Mass/Vol] 171 mg/dL High 74-[address] [facility] Comment on above: Performed By: #### 2 777-1 #### KELECHI VELEZMOTZER L ([id number]) [facility] ([facility]) [id number] [place] [address] 23356 Potassium [Moles/Vol] 4.1 mmol/L Normal 3.5-5.3 [facility] Comment on above: Performed By: #### 2 777-1 #### KELECHI VELEZMOTZER L ([id number]) [facility] ([facility]) [id number] [place] [address] 17664 Sodium [Moles/Vol] 136 mmol/L Normal 136-[address] [facility] Comment on above: Performed By: #### 2 777-1 #### KELECHI VELEZMOTZER L ([id number]) [facility] ([facility]) [id number] [place] [address] 06782 Urea nitrogen [Mass/Vol] 58 mg/dL High 6-23 [facility] Comment on above: Performed By: #### 2 777-1 #### KELECHI VELEZMOTZER L ([id number]) [facility] ([facility]) [address] [place] [address] 92592 CBC W Auto Differential pane l (Bld)Ordered By: Cheryl Brooks on 09-04-2024 Basophils (Bld) [#/Vol] [facility] Basophils/100 WBC (Bld) [facility] Eosinophils (Bld) [#/Vol] [facility] Eosinophils/100 WBC (Bld) [facility] Erythrocyte distribution width (RBC) [Ratio] [facility] Comment on above: qns Hematocrit (Bld) [Volume fraction] [facility] Comment on above: qns Hemoglobin (Bld) [Mass/Vol] [facility] Comment on above: qns Immature granulocytes/100 WBC (Bld) [facility] Comment on above: qns Lymphocytes (Bld) [#/Vol] [facility] Lymphocytes/100 WBC (Bld) [facility] MCHC (RBC) [Mass/Vol] [facility] Comment on above: qns MCV (RBC) [Entitic vol] [facility] Comment on above: qns Monocytes (Bld) [#/Vol] [facility] Monocytes/100 WBC (Bld) [facility] Neutrophils (Bld) [#/Vol] [facility] Neutrophils/100 WBC (Bld) [facility] Platelets (Bld) [#/Vol] [facility] Comment on above: qns RBC (Bld) [#/Vol] [facility] Comment on above: qns WBC (Bld) [#/Vol] [facility] Comment on above: qns [facility] CBC W Auto Differential pane l (Bld)on 09-04-2024 Basophils (Bld) [#/Vol] Normal [facility] Comment on above: Performed By: #### 1 9123-9 #### KELECHI Garcia ([id number]) [facility] ([facility]) [id number] [place] [address] 93827 Basophils/100 WBC (Bld) Normal [facility] Comment on above: Performed By: #### 1 9123-9 #### KELECHI Garcia ([id number]) [facility] ([facility]) [address] [place] [address] 94097 Eosinophils (Bld) [#/Vol] [facility] Comment on above: Performed By: #### 1 9123-9 #### KELECHI Garcia ([id number]) [facility] ([facility]) [address] [place] [address] 71321 Eosinophils/100 WBC (Bld) [facility] Comment on above: Performed By: #### 1 9123-9 #### KELECHI Garcia ([id number]) [facility] ([facility]) [address] [place] [address] 30001 Erythrocyte distribution width (RBC) [Ratio] [facility] Comment on above: Result Comment: qns Performed By: #### 1 9123-9 #### KELECHI Garcia ([id number]) [facility] ([facility]) [address] [place] [address] 72390 Hematocrit (Bld) [Volume fraction] [facility] Comment on above: Result Comment: qns Performed By: #### 1 9123-9 #### KELECHI Garcia ([id number]) [facility] ([facility]) [id number] [place] [address] 05991 Hemoglobin (Bld) [Mass/Vol] [facility] Comment on above: Result Comment: qns Performed By: #### 1 9123-9 #### KELECHI Garcia ([id number]) [facility] ([facility]) [address] [place] [address] 93674 Immature granulocytes/100 WBC (Bld) [facility] Comment on above: Result Comment: qns Performed By: #### 1 9123-9 #### KELECHI Garcia ([id number]) [facility] ([facility]) [address] [place] [address] 42802 Lymphocytes (Bld) [#/Vol] [facility] Comment on above: Performed By: #### 1 9123-9 #### KELECHI Garcia ([id number]) [facility] ([facility]) [address] [place] [address] 47244 Lymphocytes/100 WBC (Bld) [facility] Comment on above: Performed By: #### 1 9123-9 #### KELECHI Garcia ([id number]) [facility] ([facility]) [address] [place] [address] 05008 MCHC (RBC) [Mass/Vol] Normal [facility] Comment on above: Result Comment: qns Performed By: #### 1 9123-9 #### KELECHI Garcia ([id number]) [facility] ([facility]) [address] [place] [address] 41478 MCV (RBC) [Entitic vol] Normal [facility] Comment on above: Result Comment: qns Performed By: #### 1 9123-9 #### KELECHI Garcia ([id number]) [facility] ([facility]) [address] [place] [address] 56849 Monocytes (Bld) [#/Vol] Normal [facility] Comment on above: Performed By: #### 1 9123-9 #### KELECHI Garcia ([id number]) [facility] ([facility]) [address] [place] [address] 32611 Monocytes/100 WBC (Bld) Normal [facility] Comment on above: Performed By: #### 1 9123-9 #### KELECHI Garcia ([id number]) [facility] ([facility]) [address] [place] [address] 98612 Neutrophils (Bld) [#/Vol] Normal [facility] Comment on above: Performed By: #### 1 9123-9 #### KELECHI Garcia ([id number]) [facility] ([facility]) [id number] [place] [address] 93188 Neutrophils/100 WBC (Bld) [facility] Comment on above: Performed By: #### 1 9123-9 #### KELECHI Garcia ([id number]) [facility] ([facility]) [address] [place] [address] Platelets (Bld) [#/Vol] Normal [facility] Comment on above: Result Comment: qns Performed By: #### 1 9123-9 #### KELECHI Garcia ([id number]) [facility] ([facility]) [address] [place] [address] RBC (Bld) [#/Vol] Normal [facility] Comment on above: Result Comment: qns Performed By: #### 1 9123-9 #### KELECHI VELÁZQUEZ L ([id number]) [facility] ([facility]) [address] [place] [address] WBC (Bld) [#/Vol] Normal [facility] Comment on above: Result Comment: qns Performed By: #### 1 9123-9 #### KELECHI VELÁZQUEZ L ([id number]) [facility] ([facility]) [address] [place] [address] Basic metabolic 2000 panelon 09-03-2024 Anion gap [Moles/Vol] 12 mmol/L 10 - 2 0 mmol/L [facility] Calcium [Mass/Vol] 7.8 mg/dL Low 8.6 - 10. 6 mg/dL [facility] Chloride [Moles/Vol] 98 mmol/L 98 - 10 7 mmol/L [facility] CO2 [Moles/Vol] 33 mmol/L High 21 - 32 mmol/L [facility] Creatinine [Mass/Vol] 4.58 mg/dL High 0.50 - 1.05 mg/dL [facility] GFR/1.73 sq M.predicted among non-blacks MDRD (S/P/Bld) [Vol rate/Area] 10 mL/min/{1.73_m2} Low - PINF [facility] Comment on above: Calculations of katy mated GFR are performed using the 2020 CKD-EPI Study Refit equation without the race variable for the IDMS-Traceable creatinine methods. https://jasn.asnjournals.org/content//ASN.2020 409685 Glucose [Mass/Vol] 87 mg/dL 74 - 99 mg/dL [facility] Interpretation and review of laboratory results Abnormal [facility] Potassium [Moles/Vol] 4.3 mmol/L 3.5 - 5.3 mmol/L [facility] Sodium [Moles/Vol] 139 mmol/L 136 - 145 mmol/L [facility] Urea nitrogen [Mass/Vol] 28 mg/dL High 6 - 23 mg/dL [facility] Anion gap [Moles/Vol] 12 mmol/L Normal 10-20 [facility] Comment on above: Performed By: #### 1 9123-9 #### KELECHI Garcia ([id number]) [facility] ([facility]) [address] [place] [address] 99808 Calcium [Mass/Vol] 7.8 mg/dL Low 8.6-10.[address] [facility] Comment on above: Performed By: #### 1 9123-9 #### KELECHI Garcia ([id number]) [facility] ([facility]) [address] [place] [address] 65560 Chloride [Moles/Vol] 98 mmol/L Normal 98-107 [facility] Comment on above: Performed By: #### 1 9123-9 #### KELECHI VELÁZQUEZ L ([id number]) [facility] ([facility]) [address] [place] [address] 29868 CO2 [Moles/Vol] 33 mmol/L High 21-32 [facility] Comment on above: Performed By: #### 1 9123-9 #### KELECHI VELÁZQUEZ L ([id number]) [facility] ([facility]) [address] [place] [address] 43775 Creatinine [Mass/Vol] 4.58 mg/dL High 0.50-1.05 [facility] Comment on above: Performed By: #### 1 9123-9 #### KELECHI VELÁZQUEZ L ([id number]) [facility] ([facility]) [id number] [place] [address] 59410 Glomerular filtration rate/1.73 sq M.predicted 10 mL/min/1.73m*2 Low >60 [facility] Comment on above: Result Comment: Calc ulations of estimated GFR are performed using the 2020 CKD-EPI Study Refit equation without the race variable for the IDMS-Traceable creatinine methods. https://jasn.asnjournals.org/content/early/ASN.2020 047555 Performed By: #### 1 9123-9 #### KELECHI Garcia ([id number]) [facility] ([facility]) [address] [place] [address] 55570 Glucose [Mass/Vol] 87 mg/dL Normal 74-[address] [facility] Comment on above: Performed By: #### 1 9123-9 #### KELECHI VELÁZQUEZ L ([id number]) [facility] ([facility]) [address] [place] [address] 99409 Potassium [Moles/Vol] 4.3 mmol/L Normal 3.5-5.3 [facility] Comment on above: Performed By: #### 1 9123-9 #### KELECHI VELÁZQUEZ L ([id number]) [facility] ([facility]) [address] [place] [address] 29438 Sodium [Moles/Vol] 139 mmol/L Normal 136-[address] [facility] Comment on above: Performed By: #### 1 9123-9 #### KELECHI VELEZMOTZZAMZAM L ([id number]) [facility] ([facility]) [address] [place] [address] 96429 Urea nitrogen [Mass/Vol] 28 mg/dL High 6-23 [facility] Comment on above: Performed By: #### 1 9123-9 #### KELECHI VELEZMOTZZAMZAM L ([id number]) [facility] ([facility]) [address] [place] [address] 06306 CBC W Auto Differential pane l (Bld)on 09-03-2024 Basophils (Bld) [#/Vol] 0.09 10*3/uL [facility] Basophils/100 WBC (Bld) 0.9 % 0.0 - 2.0 % [facility] Eosinophils (Bld) [#/Vol] 0.53 10*3/uL High [facility] Eosinophils/100 WBC (Bld) 5.5 % 0.0 - 6.0 % [facility] Erythrocyte distribution width (RBC) [Ratio] 15.2 % High 11.5 - 14.5 % [facility] Hematocrit (Bld) [Volume fraction] 26 % Low 36.0 - 46.0 % [facility] Hemoglobin (Bld) [Mass/Vol] 8 g/dL Low 12.0 - 16.0 g/dL [facility] Immature granulocytes (Bld) [#/Vol] 0.05 10*3/uL [facility] Immature granulocytes/100 WBC (Bld) 0.5 % 0.0 - 0.9 % [facility] Comment on above: Immature Granulocyte Count (IG) includes promyelocytes, myelocytes and metamyelocytes but does not include bands. Percent differential counts (%) should be interpreted in the context of the absolute cell counts (cells/UL). Interpretation and review of laboratory results Abnormal [facility] Lymphocytes (Bld) [#/Vol] 1.69 10*3/uL [facility] Lymphocytes/100 WBC (Bld) 17.5 % 13.0 - 44.0 % [facility] MCH (RBC) [Entitic mass] 30.1 pg 26.0 - 34.0 pg [facility] MCHC (RBC) [Mass/Vol] 30.8 g/dL Low 32.0 - 36.0 g/dL [facility] MCV (RBC) [Entitic vol] 98 fL 80 - 100 fL [facility] Monocytes (Bld) [#/Vol] 0.89 10*3/uL High [facility] Monocytes/100 WBC (Bld) 9.2 % 2.0 - 10.0 % [facility] Neutrophils (Bld) [#/Vol] 6.38 10*3/uL High [facility] Comment on above: Percent differential counts (%) should be interpreted in the context of the absolute cell counts (cells/uL). Neutrophils/100 WBC (Bld) 66.4 % 40.0 - 80.0 % [facility] Nucleated RBC/100 WBC (Bld) [Ratio] 0 % [facility] Platelets (Bld) [#/Vol] 429 10*3/uL [facility] RBC (Bld) [#/Vol] 2.66 10*6/uL Low [facility] WBC (Bld) [#/Vol] 9.6 10*3/uL [facility] Basophils (Bld) [#/Vol] 0.09 x10*3/uL Normal 0.00-0.10 [facility] Comment on above: Performed By: #### 1 9123-9 #### KELECHI Garcia ([id number]) [facility] ([facility]) [address] [place] [address] 93595 Basophils/100 WBC (Bld) 0.9 % Normal 0.0-2.0 [facility] Comment on above: Performed By: #### 1 9123-9 #### KELECHI Garcia ([id number]) [facility] ([facility]) [address] [place] [address] 21375 Eosinophils (Bld) [#/Vol] 0.53 x10*3/uL High 0.00-0.40 [facility] Comment on above: Performed By: #### 1 9123-9 #### KELECHI Garcia ([id number]) [facility] ([facility]) [address] [place] [address] 66856 Eosinophils/100 WBC (Bld) 5.5 % Normal 0.0-6.0 [facility] Comment on above: Performed By: #### 1 9123-9 #### KELECHI Garcia ([id number]) [facility] ([facility]) [address] [place] [address] 52150 Erythrocyte distribution width (RBC) [Ratio] 15.2 % High 11.5-14.5 [facility] Comment on above: Performed By: #### 1 9123-9 #### KELECHI Garcia ([id number]) [facility] ([facility]) [address] [place] [address] Hematocrit (Bld) [Volume fraction] 26.0 % Low 36.0-46.0 [facility] Comment on above: Performed By: #### 1 9123-9 #### KELECHI Garcia ([id number]) [facility] ([facility]) [id number] [place] [address] 90510 Hemoglobin (Bld) [Mass/Vol] 8.0 g/dL Low 12.0-16.0 [facility] Comment on above: Performed By: #### 1 9123-9 #### KELECHI Garcia ([id number]) [facility] ([facility]) [address] [place] [address] 13331 Immature granulocytes (Bld) [#/Vol] 0.05 x10*3/uL Normal 0.00-0.50 [facility] Comment on above: Performed By: #### 1 9123-9 #### KELECHI Garcia ([id number]) [facility] ([facility]) [address] [place] [address] 12078 Immature granulocytes/100 WBC (Bld) 0.5 % Normal 0.0-0.9 [facility] Comment on above: Result Comment: Jannie ture Granulocyte Count (IG) includes promyelocytes, myelocytes and metamyelocytes but does not include bands. Percent differential counts (%) should be interpreted in the context of the absolute cell counts (cells/UL). Performed By: #### 1 9123-9 #### KELECHI Garcia ([id number]) [facility] ([facility]) [address] [place] [address] 16083 Lymphocytes (Bld) [#/Vol] 1.69 x10*3/uL Normal 0.80-3.00 [facility] Comment on above: Performed By: #### 1 9123-9 #### KELECHI Garcia ([id number]) [facility] ([facility]) [id number] [place] [address] 98901 Lymphocytes/100 WBC (Bld) 17.5 % Normal 13.0-44.0 [facility] Comment on above: Performed By: #### 1 9123-9 #### KELECHI Garcia ([id number]) [facility] ([facility]) [address] [place] [address] MCH (RBC) [Entitic mass] 30.1 pg Normal 26.0-34.0 [facility] Comment on above: Performed By: #### 1 9123-9 #### KELECHI Garcia ([id number]) [facility] ([facility]) [address] [place] [address] MCHC (RBC) [Mass/Vol] 30.8 g/dL Low 32.0-36.0 [facility] Comment on above: Performed By: #### 1 9123-9 #### KELECHI Garcia ([id number]) [facility] ([facility]) [address] [place] [address] MCV (RBC) [Entitic vol] 98 fL Normal 80-100 [facility] Comment on above: Performed By: #### 1 9123-9 #### KELECHI Garcia ([id number]) [facility] ([facility]) [address] [place] [address] Monocytes (Bld) [#/Vol] 0.89 x10*3/uL High 0.05-0.80 [facility] Comment on above: Performed By: #### 1 9123-9 #### KELECHI Garcia ([id number]) [facility] ([facility]) [address] [place] [address] Monocytes/100 WBC (Bld) 9.2 % Normal 2.0-10.0 [facility] Comment on above: Performed By: #### 1 9123-9 #### KELECHI VELÁZQUEZ L ([id number]) [facility] ([facility]) [address] [place] [address] Neutrophils (Bld) [#/Vol] 6.38 x10*3/uL High 1.60-5.50 [facility] Comment on above: Result Comment: Perc ent differential counts (%) should be interpreted in the context of the absolute cell counts (cells/uL). Performed By: #### 1 9123-9 #### KELECHI Garcia ([id number]) [facility] ([facility]) [address] [place] [address] 65100 Neutrophils/100 WBC (Bld) 66.4 % Normal 40.0-80.0 [facility] Comment on above: Performed By: #### 1 9123-9 #### KELECHI Garcia ([id number]) [facility] ([facility]) [address] [place] [address] 50969 Nucleated RBC/100 WBC (Bld) [Ratio] 0.0 /100 WBCs Normal 0.0-0.0 [facility] Comment on above: Performed By: #### 1 9123-9 #### KELECHI Garcia ([id number]) [facility] ([facility]) [address] [place] [address] 32831 Platelets (Bld) [#/Vol] 429 x10*3/uL Normal 150-450 [facility] Comment on above: Performed By: #### 1 9123-9 #### KELECHI Garcia ([id number]) [facility] ([facility]) [address] [place] [address] 95541 RBC (Bld) [#/Vol] 2.66 x10*6/uL Low 4.00-5.20 [facility] Comment on above: Performed By: #### 1 9123-9 #### KELECHI Garcia ([id number]) [facility] ([facility]) [address] [place] [address] 32528 WBC (Bld) [#/Vol] 9.6 x10*3/uL Normal 4.4-11.3 [facility] Comment on above: Performed By: #### 1 9123-9 #### KELECHI Garcia ([id number]) [facility] ([facility]) [address] [place] [address] 93863 Basic metabolic 2000 panelon 09-02-2024 Anion gap [Moles/Vol] 17 mmol/L 10 - 2 0 mmol/L [facility] Calcium [Mass/Vol] 7.3 mg/dL Low 8.6 - 10. 6 mg/dL [facility] Chloride [Moles/Vol] 98 mmol/L 98 - 10 7 mmol/L [facility] CO2 [Moles/Vol] 29 mmol/L 21 - 32 mmol/L [facility] Creatinine [Mass/Vol] 6.49 mg/dL High 0.50 - 1.05 mg/dL [facility] GFR/1.73 sq M.predicted among non-blacks MDRD (S/P/Bld) [Vol rate/Area] 6 mL/min/{1.73_m2} Low - PINF [facility] Comment on above: Calculations of katy mated GFR are performed using the 2020 CKD-EPI Study Refit equation without the race variable for the IDMS-Traceable creatinine methods. https://jasn.asnjournals.org/content//ASN.2020 616497 Glucose [Mass/Vol] 88 mg/dL 74 - 99 mg/dL [facility] Interpretation and review of laboratory results Abnormal [facility] Potassium [Moles/Vol] 4.4 mmol/L 3.5 - 5.3 mmol/L [facility] Sodium [Moles/Vol] 140 mmol/L 136 - 145 mmol/L [facility] Urea nitrogen [Mass/Vol] 38 mg/dL High 6 - 23 mg/dL [facility] Anion gap [Moles/Vol] 17 mmol/L Normal 10-20 [facility] Comment on above: Performed By: #### 1 9123-9 #### KELECHI Garcia ([id number]) [facility] ([facility]) [address] [place] [address] Calcium [Mass/Vol] 7.3 mg/dL Low 8.6-10.[address] [facility] Comment on above: Performed By: #### 1 9123-9 #### KELECHI VELÁZQUEZ L ([id number]) [facility] ([facility]) [address] [place] [address] Chloride [Moles/Vol] 98 mmol/L Normal 98-107 [facility] Comment on above: Performed By: #### 1 9123-9 #### KELECHI Garcia ([id number]) [facility] ([facility]) [address] [place] [address] CO2 [Moles/Vol] 29 mmol/L Normal 21-32 [facility] Comment on above: Performed By: #### 1 9123-9 #### KELECHI Garcia ([id number]) [facility] ([facility]) [id number] [place], [place] [address] [id number] Creatinine [Mass/Vol] 6.49 mg/dL High 0.50-1.05 [facility] Comment on above: Performed By: #### 1 9123-9 #### KELECHI Garcia ([id number]) [facility] ([facility]) [address] [place] [address] 73697 Glomerular filtration rate/1.73 sq M.predicted 6 mL/min/1.73m*2 Low >60 [facility] Comment on above: Result Comment: Calc ulations of estimated GFR are performed using the 2020 CKD-EPI Study Refit equation without the race variable for the IDMS-Traceable creatinine methods. https://jasn.asnjournals.org/content/early//ASN.2020 311168 Performed By: #### 1 9123-9 #### KELECHI Garcia ([id number]) [facility] ([facility]) [address] [place] [address] Glucose [Mass/Vol] 88 mg/dL Normal 74-[address] [facility] Comment on above: Performed By: #### 1 9123-9 #### KELECHI Garcia ([id number]) [facility] ([facility]) [address] [place] [address] Potassium [Moles/Vol] 4.4 mmol/L Normal 3.5-5.3 [facility] Comment on above: Performed By: #### 1 9123-9 #### KELECHI Garcia ([id number]) [facility] ([facility]) [address] [place] [address] Sodium [Moles/Vol] 140 mmol/L Normal 136-[address] [facility] Comment on above: Performed By: #### 1 9123-9 #### KELECHI VELÁZQUEZ L ([id number]) [facility] ([facility]) [address] [place] [address] Urea nitrogen [Mass/Vol] 38 mg/dL High 6-23 [facility] Comment on above: Performed By: #### 1 9123-9 #### KELECHI WEBSTERER L ([id number]) [facility] ([facility]) [address] [place] [address] CBC W Auto Differential pane l (Bld)on 09-02-2024 Basophils (Bld) [#/Vol] 0.11 10*3/uL High [facility] Basophils/100 WBC (Bld) 1.2 % 0.0 - 2.0 % [facility] Eosinophils (Bld) [#/Vol] 0.4 10*3/uL [facility] Eosinophils/100 WBC (Bld) 4.3 % 0.0 - 6.0 % [facility] Erythrocyte distribution width (RBC) [Ratio] 15.5 % High 11.5 - 14.5 % [facility] Hematocrit (Bld) [Volume fraction] 28.8 % Low 36.0 - 46.0 % [facility] Hemoglobin (Bld) [Mass/Vol] 8.8 g/dL Low 12.0 - 16.0 g/dL [facility] Immature granulocytes (Bld) [#/Vol] 0.06 10*3/uL [facility] Immature granulocytes/100 WBC (Bld) 0.6 % 0.0 - 0.9 % [facility] Comment on above: Immature Granulocyte Count (IG) includes promyelocytes, myelocytes and metamyelocytes but does not include bands. Percent differential counts (%) should be interpreted in the context of the absolute cell counts (cells/UL). Interpretation and review of laboratory results Abnormal [facility] Lymphocytes (Bld) [#/Vol] 1.07 10*3/uL [facility] Lymphocytes/100 WBC (Bld) 11.5 % 13.0 - 44.0 % [facility] MCH (RBC) [Entitic mass] 31 pg 26.0 - 34.0 pg [facility] MCHC (RBC) [Mass/Vol] 30.6 g/dL Low 32.0 - 36.0 g/dL [facility] MCV (RBC) [Entitic vol] 101 fL High 80 - 100 fL [facility] Monocytes (Bld) [#/Vol] 0.79 10*3/uL [facility] Monocytes/100 WBC (Bld) 8.5 % 2.0 - 10.0 % [facility] Neutrophils (Bld) [#/Vol] 6.86 10*3/uL High [facility] Comment on above: Percent differential counts (%) should be interpreted in the context of the absolute cell counts (cells/uL). Neutrophils/100 WBC (Bld) 73.9 % 40.0 - 80.0 % [facility] Nucleated RBC/100 WBC (Bld) [Ratio] 0 % [facility] Platelets (Bld) [#/Vol] 430 10*3/uL [facility] RBC (Bld) [#/Vol] 2.84 10*6/uL Low [facility] WBC (Bld) [#/Vol] 9.3 10*3/uL [facility] Basophils (Bld) [#/Vol] 0.11 x10*3/uL [facility] 0.00-0.10 [facility] Comment on above: Performed By: #### 1 9123-9 #### KELECHI Garcia ([id number]) [facility] ([facility]) [address] [place] [address] 72374 Basophils/100 WBC (Bld) 1.2 % Normal 0.0-2.0 [facility] Comment on above: Performed By: #### 1 9123-9 #### KELECHI Garcia ([id number]) [facility] ([facility]) [address] [place] [address] Eosinophils (Bld) [#/Vol] 0.40 x10*3/uL Normal 0.00-0.40 [facility] Comment on above: Performed By: #### 1 9123-9 #### KELECHI Garcia ([id number]) [facility] ([facility]) [id number] [place] [address] Eosinophils/100 WBC (Bld) 4.3 % Normal 0.0-6.0 [facility] Comment on above: Performed By: #### 1 9123-9 #### KELECHI Garcia ([id number]) [facility] ([facility]) [address] [place] [address] 95218 Erythrocyte distribution width (RBC) [Ratio] 15.5 % High 11.5-14.5 [facility] Comment on above: Performed By: #### 1 9123-9 #### KELECHI Garcia ([id number]) [facility] ([facility]) [address] [place] [address] 45283 Hematocrit (Bld) [Volume fraction] 28.8 % Low 36.0-46.0 [facility] Comment on above: Performed By: #### 1 9123-9 #### KELECHI Garcia ([id number]) [facility] ([facility]) [address] [place] [address] 04104 Hemoglobin (Bld) [Mass/Vol] 8.8 g/dL Low 12.0-16.0 [facility] Comment on above: Performed By: #### 1 9123-9 #### KELECHI Garcia ([id number]) [facility] ([facility]) [address] [place] [address] 02779 Immature granulocytes (Bld) [#/Vol] 0.06 x10*3/uL Normal 0.00-0.50 [facility] Comment on above: Performed By: #### 1 9123-9 #### KELECHI Garcia ([id number]) [facility] ([facility]) [address] [place] [address] 28573 Immature granulocytes/100 WBC (Bld) 0.6 % Normal 0.0-0.9 [facility] Comment on above: Result Comment: Jannie ture Granulocyte Count (IG) includes promyelocytes, myelocytes and metamyelocytes but does not include bands. Percent differential counts (%) should be interpreted in the context of the absolute cell counts (cells/UL). Performed By: #### 1 9123-9 #### KELECHI Garcia ([id number]) [facility] ([facility]) [address] [place] [address] 65769 Lymphocytes (Bld) [#/Vol] 1.07 x10*3/uL Normal 0.80-3.00 [facility] Comment on above: Performed By: #### 1 9123-9 #### KELECHI Garcia ([id number]) [facility] ([facility]) [address] [place] [address] 21456 Lymphocytes/100 WBC (Bld) 11.5 % Normal 13.0-44.0 [facility] Comment on above: Performed By: #### 1 9123-9 #### KELECHI Garcia ([id number]) [facility] ([facility]) [address] [place] [address] 55999 MCH (RBC) [Entitic mass] 31.0 pg Normal 26.0-34.0 [facility] Comment on above: Performed By: #### 1 9123-9 #### KELECHI Garcia ([id number]) [facility] ([facility]) [address] [place] [address] 84242 MCHC (RBC) [Mass/Vol] 30.6 g/dL Low 32.0-36.0 [facility] Comment on above: Performed By: #### 1 9123-9 #### KELECHI Garcia ([id number]) [facility] ([facility]) [address] [place] [address] 48112 MCV (RBC) [Entitic vol] 101 fL High 80-100 [facility] Comment on above: Performed By: #### 1 9123-9 #### KELECHI Garcia ([id number]) [facility] ([facility]) [address] [place] [address] 40721 Monocytes (Bld) [#/Vol] 0.79 x10*3/uL Normal 0.05-0.80 [facility] Comment on above: Performed By: #### 1 9123-9 #### KELECHI Garcia ([id number]) [facility] ([facility]) [address] [place] [address] Monocytes/100 WBC (Bld) 8.5 % Normal 2.0-10.0 [facility] Comment on above: Performed By: #### 1 9123-9 #### KELECHI Garcia ([id number]) [facility] ([facility]) [address] [place] [address] Neutrophils (Bld) [#/Vol] 6.86 x10*3/uL High 1.60-5.50 [facility] Comment on above: Result Comment: Perc ent differential counts (%) should be interpreted in the context of the absolute cell counts (cells/uL). Performed By: #### 1 9123-9 #### KELECHI Garcia ([id number]) [facility] ([facility]) [address] [place] [address] Neutrophils/100 WBC (Bld) 73.9 % Normal 40.0-80.0 [facility] Comment on above: Performed By: #### 1 9123-9 #### KELECHI Garcia ([id number]) [facility] ([facility]) [address] [place] [address] Nucleated RBC/100 WBC (Bld) [Ratio] 0.0 /100 WBCs Normal 0.0-0.0 [facility] Comment on above: Performed By: #### 1 9123-9 #### KELECHI Garcia ([id number]) [facility] ([facility]) [address] [place] [address] Platelets (Bld) [#/Vol] 430 x10*3/uL Normal 150-450 [facility] Comment on above: Performed By: #### 1 9123-9 #### KELECHI Garcia ([id number]) [facility] ([facility]) [address] [place] [address] RBC (Bld) [#/Vol] 2.84 x10*6/uL Low 4.00-5.20 [facility] Comment on above: Performed By: #### 1 9123-9 #### KELECHI Garcia ([id number]) [facility] ([facility]) [address] [place] [address] WBC (Bld) [#/Vol] 9.3 x10*3/uL Normal 4.4-11.3 [facility] Comment on above: Performed By: #### 1 9123-9 #### KELECHI Garcia ([id number]) [facility] ([facility]) [address] [place] [address] Basophils (Bld) [#/Vol] 0.13 10*3/uL High [facility] Basophils/100 WBC (Bld) 1.5 % 0.0 - 2.0 % [facility] Eosinophils (Bld) [#/Vol] 0.42 10*3/uL High [facility] Eosinophils/100 WBC (Bld) 4.8 % 0.0 - 6.0 % [facility] Erythrocyte distribution width (RBC) [Ratio] 15.3 % High 11.5 - 14.5 % [facility] Hematocrit (Bld) [Volume fraction] 27.3 % Low 36.0 - 46.0 % [facility] Hemoglobin (Bld) [Mass/Vol] 8.5 g/dL Low 12.0 - 16.0 g/dL [facility] Immature granulocytes (Bld) [#/Vol] 0.04 10*3/uL [facility] Immature granulocytes/100 WBC (Bld) 0.5 % 0.0 - 0.9 % [facility] Comment on above: Immature Granulocyte Count (IG) includes promyelocytes, myelocytes and metamyelocytes but does not include bands. Percent differential counts (%) should be interpreted in the context of the absolute cell counts (cells/UL). Interpretation and review of laboratory results Abnormal [facility] Lymphocytes (Bld) [#/Vol] 1.29 10*3/uL [facility] Lymphocytes/100 WBC (Bld) 14.6 % 13.0 - 44.0 % [facility] MCH (RBC) [Entitic mass] 30.6 pg 26.0 - 34.0 pg [facility] MCHC (RBC) [Mass/Vol] 31.1 g/dL Low 32.0 - 36.0 g/dL [facility] MCV (RBC) [Entitic vol] 98 fL 80 - 100 fL [facility] Monocytes (Bld) [#/Vol] 0.77 10*3/uL [facility] Monocytes/100 WBC (Bld) 8.7 % 2.0 - 10.0 % [facility] Neutrophils (Bld) [#/Vol] 6.16 10*3/uL High [facility] Comment on above: Percent differential counts (%) should be interpreted in the context of the absolute cell counts (cells/uL). Neutrophils/100 WBC (Bld) 69.9 % 40.0 - 80.0 % [facility] Nucleated RBC/100 WBC (Bld) [Ratio] 0 % [facility] Platelets (Bld) [#/Vol] 399 10*3/uL [facility] RBC (Bld) [#/Vol] 2.78 10*6/uL Low [facility] WBC (Bld) [#/Vol] 8.8 10*3/uL [facility] Basophils (Bld) [#/Vol] 0.13 x10*3/uL [facility] 0.00-0.10 [facility] Comment on above: Performed By: #### 1 9123-9 #### KELECHI Garcia ([id number]) [facility] ([facility]) [address] [place] [address] Basophils/100 WBC (Bld) 1.5 % Normal 0.0-2.0 [facility] Comment on above: Performed By: #### 1 9123-9 #### KELECHI Garcia ([id number]) [facility] ([facility]) [address] [place] [address] Eosinophils (Bld) [#/Vol] 0.42 x10*3/uL High 0.00-0.40 [facility] Comment on above: Performed By: #### 1 9123-9 #### KELECHI Garcia ([id number]) [facility] ([facility]) [address] [place] [address] 60946 Eosinophils/100 WBC (Bld) 4.8 % Normal 0.0-6.0 [facility] Comment on above: Performed By: #### 1 9123-9 #### KELECHI Garcia ([id number]) [facility] ([facility]) [address] [place] [address] 83497 Erythrocyte distribution width (RBC) [Ratio] 15.3 % High 11.5-14.5 [facility] Comment on above: Performed By: #### 1 9123-9 #### KELECHI Garcia ([id number]) [facility] ([facility]) [address] [place] [address] 35410 Hematocrit (Bld) [Volume fraction] 27.3 % Low 36.0-46.0 [facility] Comment on above: Performed By: #### 1 9123-9 #### KELECHI Garcia ([id number]) [facility] ([facility]) [address] [place] [address] 46223 Hemoglobin (Bld) [Mass/Vol] 8.5 g/dL Low 12.0-16.0 [facility] Comment on above: Performed By: #### 1 9123-9 #### KELECHI Garcia ([id number]) [facility] ([facility]) [address] [place] [address] 68687 Immature granulocytes (Bld) [#/Vol] 0.04 x10*3/uL Normal 0.00-0.50 [facility] Comment on above: Performed By: #### 1 9123-9 #### KELECHI Garcia ([id number]) [facility] ([facility]) [address] [place] [address] 12234 Immature granulocytes/100 WBC (Bld) 0.5 % Normal 0.0-0.9 [facility] Comment on above: Result Comment: Jannie ture Granulocyte Count (IG) includes promyelocytes, myelocytes and metamyelocytes but does not include bands. Percent differential counts (%) should be interpreted in the context of the absolute cell counts (cells/UL). Performed By: #### 1 9123-9 #### KELECHI Garcia ([id number]) [facility] ([facility]) [address] [place] [address] 30947 Lymphocytes (Bld) [#/Vol] 1.29 x10*3/uL Normal 0.80-3.00 [facility] Comment on above: Performed By: #### 1 9123-9 #### KELECHI Garcia ([id number]) [facility] ([facility]) [address] [place] [address] 53250 Lymphocytes/100 WBC (Bld) 14.6 % Normal 13.0-44.0 [facility] Comment on above: Performed By: #### 1 9123-9 #### KELECHI Garcia ([id number]) [facility] ([facility]) [address] [place] [address] 94674 MCH (RBC) [Entitic mass] 30.6 pg Normal 26.0-34.0 [facility] Comment on above: Performed By: #### 1 9123-9 #### KELECHI Garcia ([id number]) [facility] ([facility]) [address] [place] [address] MCHC (RBC) [Mass/Vol] 31.1 g/dL Low 32.0-36.0 [facility] Comment on above: Performed By: #### 1 9123-9 #### KELECHI Garcia ([id number]) [facility] ([facility]) [address] [place] [address] 14493 MCV (RBC) [Entitic vol] 98 fL Normal 80-100 [facility] Comment on above: Performed By: #### 1 9123-9 #### KELECHI Garcia ([id number]) [facility] ([facility]) [address] [place] [address] Monocytes (Bld) [#/Vol] 0.77 x10*3/uL Normal 0.05-0.80 [facility] Comment on above: Performed By: #### 1 9123-9 #### KELECHI Garcia ([id number]) [facility] ([facility]) [address] [place] [address] Monocytes/100 WBC (Bld) 8.7 % Normal 2.0-10.0 [facility] Comment on above: Performed By: #### 1 9123-9 #### KELECHI Garcia ([id number]) [facility] ([facility]) [address] [place] [address] 03101 Neutrophils (Bld) [#/Vol] 6.16 x10*3/uL High 1.60-5.50 [facility] Comment on above: Result Comment: Perc ent differential counts (%) should be interpreted in the context of the absolute cell counts (cells/uL). Performed By: #### 1 9123-9 #### KELECHI Garcia ([id number]) [facility] ([facility]) [address] [place] [address] Neutrophils/100 WBC (Bld) 69.9 % Normal 40.0-80.0 [facility] Comment on above: Performed By: #### 1 9123-9 #### KELECHI Garcia ([id number]) [facility] ([facility]) [address] [place] [address] Nucleated RBC/100 WBC (Bld) [Ratio] 0.0 /100 WBCs Normal 0.0-0.0 [facility] Comment on above: Performed By: #### 1 9123-9 #### KELECHI Garcia ([id number]) [facility] ([facility]) [address] [place] [address] Platelets (Bld) [#/Vol] 399 x10*3/uL Normal 150-450 [facility] Comment on above: Performed By: #### 1 9123-9 #### KELECHI Garcia ([id number]) [facility] ([facility]) [address] [place] [address] RBC (Bld) [#/Vol] 2.78 x10*6/uL Low 4.00-5.20 [facility] Comment on above: Performed By: #### 1 9123-9 #### KELECHI Garcia ([id number]) [facility] ([facility]) [address] [place] [address] WBC (Bld) [#/Vol] 8.8 x10*3/uL Normal 4.4-11.3 [facility] Comment on above: Performed By: #### 1 9123-9 #### KELECHI Garcia ([id number]) [facility] ([facility]) [address] [place] [address] Basophils (Bld) [#/Vol] 0.11 10*3/uL High [facility] Basophils/100 WBC (Bld) 1.1 % 0.0 - 2.0 % [facility] Eosinophils (Bld) [#/Vol] 0.49 10*3/uL High [facility] Eosinophils/100 WBC (Bld) 5 % 0.0 - 6.0 % [facility] Erythrocyte distribution width (RBC) [Ratio] 15.6 % High 11.5 - 14.5 % [facility] Hematocrit (Bld) [Volume fraction] 24 % Low 36.0 - 46.0 % [facility] Hemoglobin (Bld) [Mass/Vol] 7.7 g/dL Low 12.0 - 16.0 g/dL [facility] Immature granulocytes (Bld) [#/Vol] 0.04 10*3/uL [facility] Immature granulocytes/100 WBC (Bld) 0.4 % 0.0 - 0.9 % [facility] Comment on above: Immature Granulocyte Count (IG) includes promyelocytes, myelocytes and metamyelocytes but does not include bands. Percent differential counts (%) should be interpreted in the context of the absolute cell counts (cells/UL). Interpretation and review of laboratory results Abnormal [facility] Lymphocytes (Bld) [#/Vol] 1.7 10*3/uL [facility] Lymphocytes/100 WBC (Bld) 17.5 % 13.0 - 44.0 % [facility] MCH (RBC) [Entitic mass] 30.6 pg 26.0 - 34.0 pg [facility] MCHC (RBC) [Mass/Vol] 32.1 g/dL 32.0 - 36.0 g/dL [facility] MCV (RBC) [Entitic vol] 95 fL 80 - 100 fL [facility] Monocytes (Bld) [#/Vol] 0.79 10*3/uL [facility] Monocytes/100 WBC (Bld) 8.1 % 2.0 - 10.0 % [facility] Neutrophils (Bld) [#/Vol] 6.58 10*3/uL High [facility] Comment on above: Percent differential counts (%) should be interpreted in the context of the absolute cell counts (cells/uL). Neutrophils/100 WBC (Bld) 67.9 % 40.0 - 80.0 % [facility] Nucleated RBC/100 WBC (Bld) [Ratio] 0 % [facility] Platelets (Bld) [#/Vol] 392 10*3/uL [facility] RBC (Bld) [#/Vol] 2.52 10*6/uL Low [facility] WBC (Bld) [#/Vol] 9.7 10*3/uL [facility] Basophils (Bld) [#/Vol] 0.11 x10*3/uL [facility] 0.00-0.10 [facility] Comment on above: Performed By: #### 1 9123-9 #### KELECHI Garcia ([id number]) [facility] ([facility]) [address] [place] [address] Basophils/100 WBC (Bld) 1.1 % Normal 0.0-2.0 [facility] Comment on above: Performed By: #### 1 9123-9 #### KELECHI Garcia ([id number]) [facility] ([facility]) [address] [place] [address] Eosinophils (Bld) [#/Vol] 0.49 x10*3/uL High 0.00-0.40 [facility] Comment on above: Performed By: #### 1 9123-9 #### KELECHI Garcia ([id number]) [facility] ([facility]) [address] [place] [address] 64104 Eosinophils/100 WBC (Bld) 5.0 % Normal 0.0-6.0 [facility] Comment on above: Performed By: #### 1 9123-9 #### KELECHI Garcia ([id number]) [facility] ([facility]) [address] [place] [address] 58850 Erythrocyte distribution width (RBC) [Ratio] 15.6 % High 11.5-14.5 [facility] Comment on above: Performed By: #### 1 9123-9 #### KELECHI Garcia ([id number]) [facility] ([facility]) [address] [place] [address] 98338 Hematocrit (Bld) [Volume fraction] 24.0 % Low 36.0-46.0 [facility] Comment on above: Performed By: #### 1 9123-9 #### KELECHI Garcia ([id number]) [facility] ([facility]) [address] [place] [address] 54240 Hemoglobin (Bld) [Mass/Vol] 7.7 g/dL Low 12.0-16.0 [facility] Comment on above: Performed By: #### 1 9123-9 #### KELECHI Garcia ([id number]) [facility] ([facility]) [address] [place] [address] 06926 Immature granulocytes (Bld) [#/Vol] 0.04 x10*3/uL Normal 0.00-0.50 [facility] Comment on above: Performed By: #### 1 9123-9 #### KELECHI Garcia ([id number]) [facility] ([facility]) [address] [place] [address] 15865 Immature granulocytes/100 WBC (Bld) 0.4 % Normal 0.0-0.9 [facility] Comment on above: Result Comment: Jannie ture Granulocyte Count (IG) includes promyelocytes, myelocytes and metamyelocytes but does not include bands. Percent differential counts (%) should be interpreted in the context of the absolute cell counts (cells/UL). Performed By: #### 1 9123-9 #### KELECHI Garcia ([id number]) [facility] ([facility]) [address] [place] [address] 24788 Lymphocytes (Bld) [#/Vol] 1.70 x10*3/uL Normal 0.80-3.00 [facility] Comment on above: Performed By: #### 1 9123-9 #### KELECHI Garcia ([id number]) [facility] ([facility]) [address] [place] [address] [id number] Lymphocytes/100 WBC (Bld) 17.5 % Normal 13.0-44.0 [facility] Comment on above: Performed By: #### 1 9123-9 #### KELECHI Garcia ([id number]) [facility] ([facility]) [id number] [place] [id number] MCH (RBC) [Entitic mass] 30.6 pg Normal 26.0-34.0 [facility] Comment on above: Performed By: #### 1 9123-9 #### KELECHI Garcia ([id number]) [facility] ([facility]) [address] [place] [address] MCHC (RBC) [Mass/Vol] 32.1 g/dL Normal 32.0-36.0 [facility] Comment on above: Performed By: #### 1 9123-9 #### KELECHI Garcia ([id number]) [facility] ([facility]) [id number] [place] [address] 90625 MCV (RBC) [Entitic vol] 95 fL Normal 80-100 [facility] Comment on above: Performed By: #### 1 9123-9 #### KELECHI Garcia ([id number]) [facility] ([facility]) [address] [place] [address] Monocytes (Bld) [#/Vol] 0.79 x10*3/uL Normal 0.05-0.80 [facility] Comment on above: Performed By: #### 1 9123-9 #### KELECHI Garcia ([id number]) [facility] ([facility]) [address] [place] [address] Monocytes/100 WBC (Bld) 8.1 % Normal 2.0-10.0 [facility] Comment on above: Performed By: #### 1 9123-9 #### KELECHI Garcia ([id number]) [facility] ([facility]) [address] [place] [address] 40011 Neutrophils (Bld) [#/Vol] 6.58 x10*3/uL High 1.60-5.50 [facility] Comment on above: Result Comment: Perc ent differential counts (%) should be interpreted in the context of the absolute cell counts (cells/uL). Performed By: #### 1 9123-9 #### KELECHI Garcia ([id number]) [facility] ([facility]) [address] [place] [address] Neutrophils/100 WBC (Bld) 67.9 % Normal 40.0-80.0 [facility] Comment on above: Performed By: #### 1 9123-9 #### KELECHI Garcia ([id number]) [facility] ([facility]) [address] [place] [address] Nucleated RBC/100 WBC (Bld) [Ratio] 0.0 /100 WBCs Normal 0.0-0.0 [facility] Comment on above: Performed By: #### 1 9123-9 #### KELECHI Garcia ([id number]) [facility] ([facility]) [address] [place] [address] Platelets (Bld) [#/Vol] 392 x10*3/uL Normal 150-450 [facility] Comment on above: Performed By: #### 1 9123-9 #### KELECHI Garcia ([id number]) [facility] ([facility]) [address] [place] [address] RBC (Bld) [#/Vol] 2.52 x10*6/uL Low 4.00-5.20 [facility] Comment on above: Performed By: #### 1 9123-9 #### KELECHI Garcia ([id number]) [facility] ([facility]) [address] [place] [address] WBC (Bld) [#/Vol] 9.7 x10*3/uL Normal 4.4-11.3 [facility] Comment on above: Performed By: #### 1 9123-9 #### KELECHI Garcia ([id number]) [facility] ([facility]) [address] [place] [address] 31681 Prepare RBC: 1 Unitson 09-02 Blood Expiration Date 09/08/2024 11:59:00 PM EDT [facility] Dispense Status PT [facility] PRODUCT BLOOD TYPE 5100 [facility] PRODUCT CODE [id number] [facility] Unit ABO O [facility] Unit Number [id number] [facility] Unit RH Positive [facility] UNIT VOLUME 350 [facility] XM INTEP COMP [facility] Basic metabolic 2000 panelon 09-01-2024 Anion gap [Moles/Vol] 15 mmol/L 10 - 2 0 mmol/L [facility] Calcium [Mass/Vol] 7.7 mg/dL Low 8.6 - 10. 6 mg/dL [facility] Chloride [Moles/Vol] 97 mmol/L Low 98 - 10 7 mmol/L [facility] CO2 [Moles/Vol] 33 mmol/L High 21 - 32 mmol/L [facility] Creatinine [Mass/Vol] 4.41 mg/dL High 0.50 - 1.05 mg/dL [facility] GFR/1.73 sq M.predicted among non-blacks MDRD (S/P/Bld) [Vol rate/Area] 10 mL/min/{1.73_m2} Low - PINF [facility] Comment on above: Calculations of katy mated GFR are performed using the 2020 CKD-EPI Study Refit equation without the race variable for the IDMS-Traceable creatinine methods. https://jasn.asnjournals.org/content/early/ASN.2020 189388 Glucose [Mass/Vol] 92 mg/dL 74 - 99 mg/dL [facility] Potassium [Moles/Vol] 3.7 mmol/L 3.5 - 5.3 mmol/L [facility] Sodium [Moles/Vol] 141 mmol/L 136 - 145 mmol/L [facility] Urea nitrogen [Mass/Vol] 23 mg/dL 6 - 23 mg/dL [facility] Anion gap [Moles/Vol] 15 mmol/L Normal 10-20 [facility] Comment on above: Performed By: #### 5 7021-8 #### KELECHI TAOTZZAMZAM L ([id number]) [facility] ([facility]) [address] [place] [address] 60095 Calcium [Mass/Vol] 7.7 mg/dL Low 8.6-10.[address] [facility] Comment on above: Performed By: #### 5 7021-8 #### KELECHI VELEZMOTZER L ([id number]) [facility] ([facility]) [address] [place] [address] 97297 Chloride [Moles/Vol] 97 mmol/L Low 98-107 [facility] Comment on above: Performed By: #### 5 7021-8 #### KELECHI VELEZMOTZER L ([id number]) [facility] ([facility]) [id number] [place] [address] 85689 CO2 [Moles/Vol] 33 mmol/L High 21-32 [facility] Comment on above: Performed By: #### 5 7021-8 #### KELECHI VELEZMOTZZAMZAM L ([id number]) [facility] ([facility]) [address] [place] [address] 65167 Creatinine [Mass/Vol] 4.41 mg/dL High 0.50-1.05 [facility] Comment on above: Performed By: #### 5 7021-8 #### KELECHI VELÁZQUEZ L ([id number]) [facility] ([facility]) [address] [place] [address] 52653 Glomerular filtration rate/1.73 sq M.predicted 10 mL/min/1.73m*2 Low >60 [facility] Comment on above: Result Comment: Calc ulations of estimated GFR are performed using the 2020 CKD-EPI Study Refit equation without the race variable for the IDMS-Traceable creatinine methods. https://jasn.asnjournals.org/content/early/ASN.2020 956853 Performed By: #### 5 7021-8 #### KELECHI VELÁZQUEZ L ([id number]) [facility] ([facility]) [address] [place] [address] 20028 Glucose [Mass/Vol] 92 mg/dL Normal 74-[address] [facility] Comment on above: Performed By: #### 5 7021-8 #### KELECHI TAOTZER L ([id number]) [facility] ([facility]) [address] [place] [address] 02690 Potassium [Moles/Vol] 3.7 mmol/L Normal 3.5-5.3 [facility] Comment on above: Performed By: #### 5 7021-8 #### KELECHI VELEZMOTZER L ([id number]) [facility] ([facility]) [address] [place] [address] 21958 Sodium [Moles/Vol] 141 mmol/L Normal 136-[address] [facility] Comment on above: Performed By: #### 5 7021-8 #### KELECHI VELEZMOTZER L ([id number]) [facility] ([facility]) [address] [place] [address] 15554 Urea nitrogen [Mass/Vol] 23 mg/dL Normal 6-23 [facility] Comment on above: Performed By: #### 5 7021-8 #### KELECHI VELEZMOTZER L ([id number]) [facility] ([facility]) [address] [place] [address] 55682 CBC W Auto Differential pane l (Bld)on 09-01-2024 Basophils (Bld) [#/Vol] 0.12 x10*3/uL High 0.00-0.10 [facility] Comment on above: Performed By: #### 5 7021-8 #### KELECHI Garcia ([id number]) [facility] ([facility]) [address] [place] [address] 55372 Basophils/100 WBC (Bld) 1.0 % Normal 0.0-2.0 [facility] Comment on above: Performed By: #### 5 7021-8 #### KELECHI Garcia ([id number]) [facility] ([facility]) [address] [place] [address] 44583 Eosinophils (Bld) [#/Vol] 0.23 x10*3/uL Normal 0.00-0.40 [facility] Comment on above: Performed By: #### 5 7021-8 #### KELECHI Garcia ([id number]) [facility] ([facility]) [address] [place] [address] 54027 Eosinophils/100 WBC (Bld) 1.9 % Normal 0.0-6.0 [facility] Comment on above: Performed By: #### 5 7021-8 #### KELECHI Garcia ([id number]) [facility] ([facility]) [address] [place] [address] 30305 Erythrocyte distribution width (RBC) [Ratio] 15.7 % High 11.5-14.5 [facility] Comment on above: Performed By: #### 5 7021-8 #### KELECHI Garcia ([id number]) [facility] ([facility]) [address] [place] [address] 11214 Hematocrit (Bld) [Volume fraction] 21.1 % Low 36.0-46.0 [facility] Comment on above: Performed By: #### 5 7021-8 #### KELECHI Garcia ([id number]) [facility] ([facility]) [address] [place] [address] Hemoglobin (Bld) [Mass/Vol] 6.8 g/dL Low 12.0-16.0 [facility] Comment on above: Performed By: #### 5 7021-8 #### KELECHI Garcia ([id number]) [facility] ([facility]) [address] [place] [address] 11906 Immature granulocytes (Bld) [#/Vol] 0.04 x10*3/uL Normal 0.00-0.50 [facility] Comment on above: Performed By: #### 5 7021-8 #### KELECHI Garcia ([id number]) [facility] ([facility]) [address] [place] [address] 02186 Immature granulocytes/100 WBC (Bld) 0.3 % Normal 0.0-0.9 [facility] Comment on above: Result Comment: Jannie ture Granulocyte Count (IG) includes promyelocytes, myelocytes and metamyelocytes but does not include bands. Percent differential counts (%) should be interpreted in the context of the absolute cell counts (cells/UL). Performed By: #### 5 7021-8 #### KELECHI Garcia ([id number]) [facility] ([facility]) [address] [place] [address] 69084 Lymphocytes (Bld) [#/Vol] 1.00 x10*3/uL Normal 0.80-3.00 [facility] Comment on above: Performed By: #### 5 7021-8 #### KELECHI Garcia ([id number]) [facility] ([facility]) [id number] [place] [address] 73283 Lymphocytes/100 WBC (Bld) 8.1 % Normal 13.0-44.0 [facility] Comment on above: Performed By: #### 5 7021-8 #### KELECHI Garcia ([id number]) [facility] ([facility]) [address] [place] [address] MCH (RBC) [Entitic mass] 30.4 pg Normal 26.0-34.0 [facility] Comment on above: Performed By: #### 5 7021-8 #### KELECHI Garcia ([id number]) [facility] ([facility]) [address] [place] [address] MCHC (RBC) [Mass/Vol] 32.2 g/dL Normal 32.0-36.0 [facility] Comment on above: Performed By: #### 5 7021-8 #### KELECHI VELÁZQUEZ L ([id number]) [facility] ([facility]) [address] [place] [address] 89228 MCV (RBC) [Entitic vol] 94 fL Normal 80-100 [facility] Comment on above: Performed By: #### 5 7021-8 #### KELECHI Garcia ([id number]) [facility] ([facility]) [id number] [place] [address] 01138 Monocytes (Bld) [#/Vol] 1.23 x10*3/uL High 0.05-0.80 [facility] Comment on above: Performed By: #### 5 7021-8 #### KELECHI Garcia ([id number]) [facility] ([facility]) [address] [place] [address] Monocytes/100 WBC (Bld) 10.0 % Normal 2.0-10.0 [facility] Comment on above: Performed By: #### 5 7021-8 #### KELECHI VELÁZQUEZ L ([id number]) [facility] ([facility]) [address] [place] [address] 38447 Neutrophils (Bld) [#/Vol] 9.70 x10*3/uL High 1.60-5.50 [facility] Comment on above: Result Comment: Perc ent differential counts (%) should be interpreted in the context of the absolute cell counts (cells/uL). Performed By: #### 5 7021-8 #### KELECHI VELÁZQUEZ L ([id number]) [facility] ([facility]) [address] [place] [address] Neutrophils/100 WBC (Bld) 78.7 % Normal 40.0-80.0 [facility] Comment on above: Performed By: #### 5 7021-8 #### KELECHI Garcia ([id number]) [facility] ([facility]) [address] [place] [address] 18430 Nucleated RBC/100 WBC (Bld) [Ratio] 0.0 /100 WBCs Normal 0.0-0.0 [facility] Comment on above: Performed By: #### 5 7021-8 #### KELECHI Garcia ([id number]) [facility] ([facility]) [address] [place] [address] 17626 Platelets (Bld) [#/Vol] 366 x10*3/uL Normal 150-450 [facility] Comment on above: Performed By: #### 5 7021-8 #### KELECHI Garcia ([id number]) [facility] ([facility]) [address] [place] [address] 68180 RBC (Bld) [#/Vol] 2.24 x10*6/uL Low 4.00-5.20 [facility] Comment on above: Performed By: #### 5 7021-8 #### KELECHI Garcia ([id number]) [facility] ([facility]) [address] [place] [address] 20472 WBC (Bld) [#/Vol] 12.3 x10*3/uL High 4.4-11.3 [facility] Comment on above: Performed By: #### 5 7021-8 #### KELECHI Garcia ([id number]) [facility] ([facility]) [address] [place] [address] 18114 Basophils (Bld) [#/Vol] 0.09 10*3/uL [facility] Basophils/100 WBC (Bld) 0.8 % 0.0 - 2.0 % [facility] Eosinophils (Bld) [#/Vol] 0.38 10*3/uL [facility] Eosinophils/100 WBC (Bld) 3.4 % 0.0 - 6.0 % [facility] Erythrocyte distribution width (RBC) [Ratio] 16 % High 11.5 - 14.5 % [facility] Hematocrit (Bld) [Volume fraction] 23.5 % Low 36.0 - 46.0 % [facility] Hemoglobin (Bld) [Mass/Vol] 7.9 g/dL Low 12.0 - 16.0 g/dL [facility] Immature granulocytes (Bld) [#/Vol] 0.04 10*3/uL [facility] Immature granulocytes/100 WBC (Bld) 0.4 % 0.0 - 0.9 % [facility] Comment on above: Immature Granulocyte Count (IG) includes promyelocytes, myelocytes and metamyelocytes but does not include bands. Percent differential counts (%) should be interpreted in the context of the absolute cell counts (cells/UL). Interpretation and review of laboratory results Abnormal [facility] Lymphocytes (Bld) [#/Vol] 1.57 10*3/uL [facility] Lymphocytes/100 WBC (Bld) 14.1 % 13.0 - 44.0 % [facility] MCH (RBC) [Entitic mass] 31.9 pg 26.0 - 34.0 pg [facility] MCHC (RBC) [Mass/Vol] 33.6 g/dL 32.0 - 36.0 g/dL [facility] MCV (RBC) [Entitic vol] 95 fL 80 - 100 fL [facility] Monocytes (Bld) [#/Vol] 1.17 10*3/uL High [facility] Monocytes/100 WBC (Bld) 10.5 % 2.0 - 10.0 % [facility] Neutrophils (Bld) [#/Vol] 7.86 10*3/uL High [facility] Comment on above: Percent differential counts (%) should be interpreted in the context of the absolute cell counts (cells/uL). Neutrophils/100 WBC (Bld) 70.8 % 40.0 - 80.0 % [facility] Nucleated RBC/100 WBC (Bld) [Ratio] 0 % [facility] Platelets (Bld) [#/Vol] 369 10*3/uL [facility] RBC (Bld) [#/Vol] 2.48 10*6/uL Low [facility] WBC (Bld) [#/Vol] 11.1 10*3/uL [facility] Basophils (Bld) [#/Vol] 0.09 x10*3/uL Normal 0.00-0.10 [facility] Comment on above: Performed By: #### 1 9123-9 #### KELECHI Garcia ([id number]) [facility] ([facility]) [address] [place] [address] 48165 Basophils/100 WBC (Bld) 0.8 % Normal 0.0-2.0 [facility] Comment on above: Performed By: #### 1 9123-9 #### KELECHI Garcia ([id number]) [facility] ([facility]) [address] [place] [address] 67074 Eosinophils (Bld) [#/Vol] 0.38 x10*3/uL Normal 0.00-0.40 [facility] Comment on above: Performed By: #### 1 9123-9 #### KELECHI Garcia ([id number]) [facility] ([facility]) [address] [place] [address] 22167 Eosinophils/100 WBC (Bld) 3.4 % Normal 0.0-6.0 [facility] Comment on above: Performed By: #### 1 9123-9 #### KELECHI Garcia ([id number]) [facility] ([facility]) [address] [place] [address] 23908 Erythrocyte distribution width (RBC) [Ratio] 16.0 % High 11.5-14.5 [facility] Comment on above: Performed By: #### 1 9123-9 #### KELECHI Garcia ([id number]) [facility] ([facility]) [address] [place] [address] 05695 Hematocrit (Bld) [Volume fraction] 23.5 % Low 36.0-46.0 [facility] Comment on above: Performed By: #### 1 9123-9 #### KELECHI Garcia ([id number]) [facility] ([facility]) [address] [place] [address] Hemoglobin (Bld) [Mass/Vol] 7.9 g/dL Low 12.0-16.0 [facility] Comment on above: Performed By: #### 1 9123-9 #### KELECHI Garcia ([id number]) [facility] ([facility]) [address] [place] [address] Immature granulocytes (Bld) [#/Vol] 0.04 x10*3/uL Normal 0.00-0.50 [facility] Comment on above: Performed By: #### 1 9123-9 #### KELECHI Garcia ([id number]) [facility] ([facility]) [id number] [place] [address] 07636 Immature granulocytes/100 WBC (Bld) 0.4 % Normal 0.0-0.9 [facility] Comment on above: Result Comment: Jannie ture Granulocyte Count (IG) includes promyelocytes, myelocytes and metamyelocytes but does not include bands. Percent differential counts (%) should be interpreted in the context of the absolute cell counts (cells/UL). Performed By: #### 1 9123-9 #### KELECHI Garcia ([id number]) [facility] ([facility]) [address] [place] [address] 25186 Lymphocytes (Bld) [#/Vol] 1.57 x10*3/uL Normal 0.80-3.00 [facility] Comment on above: Performed By: #### 1 9123-9 #### KELECHI Garcia ([id number]) [facility] ([facility]) [id number] [place] [address] 52075 Lymphocytes/100 WBC (Bld) 14.1 % Normal 13.0-44.0 [facility] Comment on above: Performed By: #### 1 9123-9 #### KELECHI Garcia ([id number]) [facility] ([facility]) [address] [place] [address] MCH (RBC) [Entitic mass] 31.9 pg Normal 26.0-34.0 [facility] Comment on above: Performed By: #### 1 9123-9 #### KELECHI Garcia ([id number]) [facility] ([facility]) [address] [place] [address] MCHC (RBC) [Mass/Vol] 33.6 g/dL Normal 32.0-36.0 [facility] Comment on above: Performed By: #### 1 9123-9 #### KELECHI Garcia ([id number]) [facility] ([facility]) [address] [place] [address] MCV (RBC) [Entitic vol] 95 fL Normal 80-100 [facility] Comment on above: Performed By: #### 1 9123-9 #### KELECHI Garcia ([id number]) [facility] ([facility]) [id number] [place] [address] 97517 Monocytes (Bld) [#/Vol] 1.17 x10*3/uL High 0.05-0.80 [facility] Comment on above: Performed By: #### 1 9123-9 #### KELECHI Garcia ([id number]) [facility] ([facility]) [address] [place] [address] Monocytes/100 WBC (Bld) 10.5 % Normal 2.0-10.0 [facility] Comment on above: Performed By: #### 1 9123-9 #### KELECHI Garcia ([id number]) [facility] ([facility]) [id number] [place] [address] 81364 Neutrophils (Bld) [#/Vol] 7.86 x10*3/uL High 1.60-5.50 [facility] Comment on above: Result Comment: Perc ent differential counts (%) should be interpreted in the context of the absolute cell counts (cells/uL). Performed By: #### 1 9123-9 #### KELECHI VELÁZQUEZ L ([id number]) [facility] ([facility]) [address] [place] [address] Neutrophils/100 WBC (Bld) 70.8 % Normal 40.0-80.0 [facility] Comment on above: Performed By: #### 1 9123-9 #### KELECHI Garcia ([id number]) [facility] ([facility]) [address] [place] [address] 88118 Nucleated RBC/100 WBC (Bld) [Ratio] 0.0 /100 WBCs Normal 0.0-0.0 [facility] Comment on above: Performed By: #### 1 9123-9 #### KELECHI Garcia ([id number]) [facility] ([facility]) [address] [place] [address] 69048 Platelets (Bld) [#/Vol] 369 x10*3/uL Normal 150-450 [facility] Comment on above: Performed By: #### 1 9123-9 #### KELECHI Garcia ([id number]) [facility] ([facility]) [address] [place] [address] 38129 RBC (Bld) [#/Vol] 2.48 x10*6/uL Low 4.00-5.20 [facility] Comment on above: Performed By: #### 1 9123-9 #### KELECHI Garcia ([id number]) [facility] ([facility]) [address] [place] [address] 87831 WBC (Bld) [#/Vol] 11.1 x10*3/uL Normal 4.4-11.3 [facility] Comment on above: Performed By: #### 1 9123-9 #### KELECHI Garcia ([id number]) [facility] ([facility]) [address] [place] [address] 08370 Basophils (Bld) [#/Vol] 0.15 10*3/uL High [facility] Basophils/100 WBC (Bld) 1.2 % 0.0 - 2.0 % [facility] Eosinophils (Bld) [#/Vol] 0.28 10*3/uL [facility] Eosinophils/100 WBC (Bld) 2.3 % 0.0 - 6.0 % [facility] Erythrocyte distribution width (RBC) [Ratio] 15.9 % High 11.5 - 14.5 % [facility] Hematocrit (Bld) [Volume fraction] 26.2 % Low 36.0 - 46.0 % [facility] Hemoglobin (Bld) [Mass/Vol] 8.4 g/dL Low 12.0 - 16.0 g/dL [facility] Immature granulocytes (Bld) [#/Vol] 0.04 10*3/uL [facility] Immature granulocytes/100 WBC (Bld) 0.3 % 0.0 - 0.9 % [facility] Comment on above: Immature Granulocyte Count (IG) includes promyelocytes, myelocytes and metamyelocytes but does not include bands. Percent differential counts (%) should be interpreted in the context of the absolute cell counts (cells/UL). Interpretation and review of laboratory results Abnormal [facility] Lymphocytes (Bld) [#/Vol] 1.44 10*3/uL [facility] Lymphocytes/100 WBC (Bld) 11.6 % 13.0 - 44.0 % [facility] MCH (RBC) [Entitic mass] 30.5 pg 26.0 - 34.0 pg [facility] MCHC (RBC) [Mass/Vol] 32.1 g/dL 32.0 - 36.0 g/dL [facility] MCV (RBC) [Entitic vol] 95 fL 80 - 100 fL [facility] Monocytes (Bld) [#/Vol] 0.97 10*3/uL High [facility] Monocytes/100 WBC (Bld) 7.8 % 2.0 - 10.0 % [facility] Neutrophils (Bld) [#/Vol] 9.54 10*3/uL High [facility] Comment on above: Percent differential counts (%) should be interpreted in the context of the absolute cell counts (cells/uL). Neutrophils/100 WBC (Bld) 76.8 % 40.0 - 80.0 % [facility] Nucleated RBC/100 WBC (Bld) [Ratio] 0 % [facility] Platelets (Bld) [#/Vol] 393 10*3/uL [facility] RBC (Bld) [#/Vol] 2.75 10*6/uL Low [facility] WBC (Bld) [#/Vol] 12.4 10*3/uL High [facility] Basophils (Bld) [#/Vol] 0.15 x10*3/uL High 0.00-0.10 [facility] Comment on above: Performed By: #### 1 [id number] #### KELECHI Garcia ([id number]) [facility] ([facility]) [id number] [place] [id number] Basophils/100 WBC (Bld) 1.2 % Normal 0.0-2.0 [facility] Comment on above: Performed By: #### 1 9123-9 #### KELECHI Garcia ([id number]) [facility] ([facility]) [id number] [place] [address] 00544 Eosinophils (Bld) [#/Vol] 0.28 x10*3/uL Normal 0.00-0.40 [facility] Comment on above: Performed By: #### 1 9123-9 #### KELECHI VELÁZQUEZ L ([id number]) [facility] ([facility]) [id number] [place] [address] 66671 Eosinophils/100 WBC (Bld) 2.3 % Normal 0.0-6.0 [facility] Comment on above: Performed By: #### 1 9123-9 #### KELECHI Garcia ([id number]) [facility] ([facility]) [address] [place] [address] 21302 Erythrocyte distribution width (RBC) [Ratio] 15.9 % High 11.5-14.5 [facility] Comment on above: Performed By: #### 1 9123-9 #### KELECHI VELÁZQUEZ L ([id number]) [facility] ([facility]) [address] [place] [address] 56107 Hematocrit (Bld) [Volume fraction] 26.2 % Low 36.0-46.0 [facility] Comment on above: Performed By: #### 1 9123-9 #### KELECHI Garcia ([id number]) [facility] ([facility]) [address] [place] [address] Hemoglobin (Bld) [Mass/Vol] 8.4 g/dL Low 12.0-16.0 [facility] Comment on above: Performed By: #### 1 9123-9 #### KELECHI Garcia ([id number]) [facility] ([facility]) [address] [place] [address] Immature granulocytes (Bld) [#/Vol] 0.04 x10*3/uL Normal 0.00-0.50 [facility] Comment on above: Performed By: #### 1 9123-9 #### KELECHI Garcia ([id number]) [facility] ([facility]) [address] [place] [address] 53751 Immature granulocytes/100 WBC (Bld) 0.3 % Normal 0.0-0.9 [facility] Comment on above: Result Comment: Jannie ture Granulocyte Count (IG) includes promyelocytes, myelocytes and metamyelocytes but does not include bands. Percent differential counts (%) should be interpreted in the context of the absolute cell counts (cells/UL). Performed By: #### 1 9123-9 #### KELECHI Garcia ([id number]) [facility] ([facility]) [address] [place] [address] 45711 Lymphocytes (Bld) [#/Vol] 1.44 x10*3/uL Normal 0.80-3.00 [facility] Comment on above: Performed By: #### 1 9123-9 #### KELECHI Garcia ([id number]) [facility] ([facility]) [address] [place] [address] 45645 Lymphocytes/100 WBC (Bld) 11.6 % Normal 13.0-44.0 [facility] Comment on above: Performed By: #### 1 9123-9 #### KELECHI Garcia ([id number]) [facility] ([facility]) [address] [place] [address] MCH (RBC) [Entitic mass] 30.5 pg Normal 26.0-34.0 [facility] Comment on above: Performed By: #### 1 9123-9 #### KELECHI Garcia ([id number]) [facility] ([facility]) [address] [place] [address] MCHC (RBC) [Mass/Vol] 32.1 g/dL Normal 32.0-36.0 [facility] Comment on above: Performed By: #### 1 9123-9 #### KELECHI Garcia ([id number]) [facility] ([facility]) [address] [place] [address] 94374 MCV (RBC) [Entitic vol] 95 fL Normal 80-100 [facility] Comment on above: Performed By: #### 1 9123-9 #### KELECHI Garcia ([id number]) [facility] ([facility]) [address] [place] [address] 16511 Monocytes (Bld) [#/Vol] 0.97 x10*3/uL High 0.05-0.80 [facility] Comment on above: Performed By: #### 1 9123-9 #### KELECHI Garcia ([id number]) [facility] ([facility]) [address] [place] [address] Monocytes/100 WBC (Bld) 7.8 % Normal 2.0-10.0 [facility] Comment on above: Performed By: #### 1 9123-9 #### KELECHI Garcia ([id number]) [facility] ([facility]) [address] [place] [address] 35252 Neutrophils (Bld) [#/Vol] 9.54 x10*3/uL High 1.60-5.50 [facility] Comment on above: Result Comment: Perc ent differential counts (%) should be interpreted in the context of the absolute cell counts (cells/uL). Performed By: #### 1 9123-9 #### KELECHI Garcia ([id number]) [facility] ([facility]) [address] [place] [address] Neutrophils/100 WBC (Bld) 76.8 % Normal 40.0-80.0 [facility] Comment on above: Performed By: #### 1 9123-9 #### KELECHI Garcia ([id number]) [facility] ([facility]) [address] [place] [address] 51908 Nucleated RBC/100 WBC (Bld) [Ratio] 0.0 /100 WBCs Normal 0.0-0.0 [facility] Comment on above: Performed By: #### 1 9123-9 #### KELECHI Garcia ([id number]) [facility] ([facility]) [address] [place] [address] 13928 Platelets (Bld) [#/Vol] 393 x10*3/uL Normal 150-450 [facility] Comment on above: Performed By: #### 1 9123-9 #### KELECHI Garcia ([id number]) [facility] ([facility]) [address] [place] [address] 28492 RBC (Bld) [#/Vol] 2.75 x10*6/uL Low 4.00-5.20 [facility] Comment on above: Performed By: #### 1 9123-9 #### KELECHI Garcia ([id number]) [facility] ([facility]) [address] [place] [address] 42193 WBC (Bld) [#/Vol] 12.4 x10*3/uL High 4.4-11.3 [facility] Comment on above: Performed By: #### 1 9123-9 #### KELECHI Garcia ([id number]) [facility] ([facility]) [address] [place] [address] 70847 Basophils (Bld) [#/Vol] 0.15 10*3/uL High [facility] Basophils/100 WBC (Bld) 1.3 % 0.0 - 2.0 % [facility] Eosinophils (Bld) [#/Vol] 0.32 10*3/uL [facility] Eosinophils/100 WBC (Bld) 2.7 % 0.0 - 6.0 % [facility] Erythrocyte distribution width (RBC) [Ratio] 15.5 % High 11.5 - 14.5 % [facility] Hematocrit (Bld) [Volume fraction] 22.9 % Low 36.0 - 46.0 % [facility] Hemoglobin (Bld) [Mass/Vol] 7.5 g/dL Low 12.0 - 16.0 g/dL [facility] Immature granulocytes (Bld) [#/Vol] 0.07 10*3/uL [facility] Immature granulocytes/100 WBC (Bld) 0.6 % 0.0 - 0.9 % [facility] Comment on above: Immature Granulocyte Count (IG) includes promyelocytes, myelocytes and metamyelocytes but does not include bands. Percent differential counts (%) should be interpreted in the context of the absolute cell counts (cells/UL). Interpretation and review of laboratory results Abnormal [facility] Lymphocytes (Bld) [#/Vol] 1.67 10*3/uL [facility] Lymphocytes/100 WBC (Bld) 14 % 13.0 - 44.0 % [facility] MCH (RBC) [Entitic mass] 30.9 pg 26.0 - 34.0 pg [facility] MCHC (RBC) [Mass/Vol] 32.8 g/dL 32.0 - 36.0 g/dL [facility] MCV (RBC) [Entitic vol] 94 fL 80 - 100 fL [facility] Monocytes (Bld) [#/Vol] 1.39 10*3/uL High [facility] Monocytes/100 WBC (Bld) 11.7 % 2.0 - 10.0 % [facility] Neutrophils (Bld) [#/Vol] 8.33 10*3/uL High [facility] Comment on above: Percent differential counts (%) should be interpreted in the context of the absolute cell counts (cells/uL). Neutrophils/100 WBC (Bld) 69.7 % 40.0 - 80.0 % [facility] Nucleated RBC/100 WBC (Bld) [Ratio] 0 % [facility] Platelets (Bld) [#/Vol] 360 10*3/uL [facility] RBC (Bld) [#/Vol] 2.43 10*6/uL Low [facility] WBC (Bld) [#/Vol] 11.9 10*3/uL High [facility] Basophils (Bld) [#/Vol] 0.15 x10*3/uL High 0.00-0.10 [facility] Comment on above: Performed By: #### 5 7021-8 #### KELECHI Garcia ([id number]) [facility] ([facility]) [address] [place] [address] 74263 Basophils/100 WBC (Bld) 1.3 % Normal 0.0-2.0 [facility] Comment on above: Performed By: #### 5 7021-8 #### KELECHI Garcia ([id number]) [facility] ([facility]) [address] [place] [address] 07404 Eosinophils (Bld) [#/Vol] 0.32 x10*3/uL Normal 0.00-0.40 [facility] Comment on above: Performed By: #### 5 7021-8 #### KELECHI VELÁZQUEZ L ([id number]) [facility] ([facility]) [address] [place] [address] 46627 Eosinophils/100 WBC (Bld) 2.7 % Normal 0.0-6.0 [facility] Comment on above: Performed By: #### 5 7021-8 #### KELECHI VELÁZQUEZ L ([id number]) [facility] ([facility]) [address] [place] [address] 58130 Erythrocyte distribution width (RBC) [Ratio] 15.5 % High 11.5-14.5 [facility] Comment on above: Performed By: #### 5 7021-8 #### KELECHI VELÁZQUEZ L ([id number]) [facility] ([facility]) [address] [place] [address] 32535 Hematocrit (Bld) [Volume fraction] 22.9 % Low 36.0-46.0 [facility] Comment on above: Performed By: #### 5 7021-8 #### KELECHI VELÁZQUEZ L ([id number]) [facility] ([facility]) [address] [place] [address] Hemoglobin (Bld) [Mass/Vol] 7.5 g/dL Low 12.0-16.0 [facility] Comment on above: Performed By: #### 5 7021-8 #### KELECHI Garcia ([id number]) [facility] ([facility]) [address] [place] [address] 41542 Immature granulocytes (Bld) [#/Vol] 0.07 x10*3/uL Normal 0.00-0.50 [facility] Comment on above: Performed By: #### 5 7021-8 #### KELECHI Garcia ([id number]) [facility] ([facility]) [address] [place] [address] 44296 Immature granulocytes/100 WBC (Bld) 0.6 % Normal 0.0-0.9 [facility] Comment on above: Result Comment: Jannie ture Granulocyte Count (IG) includes promyelocytes, myelocytes and metamyelocytes but does not include bands. Percent differential counts (%) should be interpreted in the context of the absolute cell counts (cells/UL). Performed By: #### 5 7021-8 #### KELECHI Garcia ([id number]) [facility] ([facility]) [address] [place] [address] 16221 Lymphocytes (Bld) [#/Vol] 1.67 x10*3/uL Normal 0.80-3.00 [facility] Comment on above: Performed By: #### 5 7021-8 #### KELECHI Garcia ([id number]) [facility] ([facility]) [address] [place] [address] 85141 Lymphocytes/100 WBC (Bld) 14.0 % Normal 13.0-44.0 [facility] Comment on above: Performed By: #### 5 7021-8 #### KELECHI Garcia ([id number]) [facility] ([facility]) [address] [place] [address] MCH (RBC) [Entitic mass] 30.9 pg Normal 26.0-34.0 [facility] Comment on above: Performed By: #### 5 7021-8 #### KELECHI Garcia ([id number]) [facility] ([facility]) [address] [place] [address] MCHC (RBC) [Mass/Vol] 32.8 g/dL Normal 32.0-36.0 [facility] Comment on above: Performed By: #### 5 7021-8 #### KELECHI Garcia ([id number]) [facility] ([facility]) [address] [place] [address] 70055 MCV (RBC) [Entitic vol] 94 fL Normal 80-100 [facility] Comment on above: Performed By: #### 5 7021-8 #### KELECHI Garcia ([id number]) [facility] ([facility]) [address] [place] [address] 34627 Monocytes (Bld) [#/Vol] 1.39 x10*3/uL High 0.05-0.80 [facility] Comment on above: Performed By: #### 5 7021-8 #### KELECHI Garcia ([id number]) [facility] ([facility]) [address] [place] [address] 47155 Monocytes/100 WBC (Bld) 11.7 % Normal 2.0-10.0 [facility] Comment on above: Performed By: #### 5 7021-8 #### KELECHI Garcia ([id number]) [facility] ([facility]) [address] [place] [address] 20213 Neutrophils (Bld) [#/Vol] 8.33 x10*3/uL High 1.60-5.50 [facility] Comment on above: Result Comment: Perc ent differential counts (%) should be interpreted in the context of the absolute cell counts (cells/uL). Performed By: #### 5 7021-8 #### KELECHI Garcia ([id number]) [facility] ([facility]) [address] [place] [address] Neutrophils/100 WBC (Bld) 69.7 % Normal 40.0-80.0 [facility] Comment on above: Performed By: #### 5 7021-8 #### KELECHI Garcia ([id number]) [facility] ([facility]) [address] [place] [address] 50058 Nucleated RBC/100 WBC (Bld) [Ratio] 0.0 /100 WBCs Normal 0.0-0.0 [facility] Comment on above: Performed By: #### 5 7021-8 #### KELECHI Garcia ([id number]) [facility] ([facility]) [address] [place] [address] 18784 Platelets (Bld) [#/Vol] 360 x10*3/uL Normal 150-450 [facility] Comment on above: Performed By: #### 5 7021-8 #### KELECHI Garcia ([id number]) [facility] ([facility]) [address] [place] [address] 31608 RBC (Bld) [#/Vol] 2.43 x10*6/uL Low 4.00-5.20 [facility] Comment on above: Performed By: #### 5 7021-8 #### KELECHI Garcia ([id number]) [facility] ([facility]) [address] [place] [address] 17455 WBC (Bld) [#/Vol] 11.9 x10*3/uL High 4.4-11.3 [facility] Comment on above: Performed By: #### 5 7021-8 #### KELECHI Garcia ([id number]) [facility] ([facility]) [address] [place] [address] 78657 Basophils (Bld) [#/Vol] 0.12 10*3/uL High [facility] Basophils/100 WBC (Bld) 1 % 0.0 - 2.0 % [facility] Eosinophils (Bld) [#/Vol] 0.23 10*3/uL [facility] Eosinophils/100 WBC (Bld) 1.9 % 0.0 - 6.0 % [facility] Erythrocyte distribution width (RBC) [Ratio] 15.7 % High 11.5 - 14.5 % [facility] Hematocrit (Bld) [Volume fraction] 21.1 % Low 36.0 - 46.0 % [facility] Hemoglobin (Bld) [Mass/Vol] 6.8 g/dL Low 12.0 - 16.0 g/dL [facility] Immature granulocytes (Bld) [#/Vol] 0.04 10*3/uL [facility] Immature granulocytes/100 WBC (Bld) 0.3 % 0.0 - 0.9 % [facility] Comment on above: Immature Granulocyte Count (IG) includes promyelocytes, myelocytes and metamyelocytes but does not include bands. Percent differential counts (%) should be interpreted in the context of the absolute cell counts (cells/UL). Interpretation and review of laboratory results Abnormal [facility] Lymphocytes (Bld) [#/Vol] 1 10*3/uL [facility] Lymphocytes/100 WBC (Bld) 8.1 % 13.0 - 44.0 % [facility] MCH (RBC) [Entitic mass] 30.4 pg 26.0 - 34.0 pg [facility] MCHC (RBC) [Mass/Vol] 32.2 g/dL 32.0 - 36.0 g/dL [facility] MCV (RBC) [Entitic vol] 94 fL 80 - 100 fL [facility] Monocytes (Bld) [#/Vol] 1.23 10*3/uL High [facility] Monocytes/100 WBC (Bld) 10 % 2.0 - 10.0 % [facility] Neutrophils (Bld) [#/Vol] 9.7 10*3/uL High [facility] Comment on above: Percent differential counts (%) should be interpreted in the context of the absolute cell counts (cells/uL). Neutrophils/100 WBC (Bld) 78.7 % 40.0 - 80.0 % [facility] Nucleated RBC/100 WBC (Bld) [Ratio] 0 % [facility] Platelets (Bld) [#/Vol] 366 10*3/uL [facility] RBC (Bld) [#/Vol] 2.24 10*6/uL Low [facility]ive [facility] WBC (Bld) [#/Vol] 12.3 10*3/uL High [facility]ive [facility] No Panel Informationon 09-01 Interpretation and review of laboratory results Abnormal [facility] Vancomycinon 09-01-2024 Vancomycin [Mass/Vol] 25.3 ug/mL High 5.0 - 20.0 ug/mL [facility] Vancomycin [Mass/Vol] 25.3 ug/mL High 5.0-20.0 [facility] Comment on above: Order Comment: Vanco mycin [...] By: #### 1 9123-9 #### KELECHI Garcia ([id number]) [facility] ([facility]) [address] [place] [address] Vancomycin [Mass/Vol]on 08-05 Vancomycin levels can be [...] 30.0-40.0 ug/mL Trough (all ages): 10.0-20.0 ug/mL [facility] Basic metabolic 2000 panelon 08-31-2024 Anion gap [Moles/Vol] 19 mmol/L 10 - 2 0 mmol/L [facility] Calcium [Mass/Vol] 7.3 mg/dL Low 8.6 - 10. 6 mg/dL [facility] Chloride [Moles/Vol] 89 mmol/L Low 98 - 10 7 mmol/L [facility] CO2 [Moles/Vol] 28 mmol/L 21 - 32 mmol/L [facility] Creatinine [Mass/Vol] 7.69 mg/dL High 0.50 - 1.05 mg/dL [facility] GFR/1.73 sq M.predicted among non-blacks MDRD (S/P/Bld) [Vol rate/Area] 5 mL/min/{1.73_m2} Low - PINF [facility] Comment on above: Calculations of katy mated GFR are performed using the 2020 CKD-EPI Study Refit equation without the race variable for the IDMS-Traceable creatinine methods. https://jasn.asnjournals.org/content/early//ASN.2020 471832 Glucose [Mass/Vol] 74 mg/dL 74 - 99 mg/dL [facility] Potassium [Moles/Vol] 4.2 mmol/L 3.5 - 5.3 mmol/L [facility] Sodium [Moles/Vol] 132 mmol/L Low 136 - 145 mmol/L [facility] Urea nitrogen [Mass/Vol] 45 mg/dL High 6 - 23 mg/dL [facility] Anion gap [Moles/Vol] 19 mmol/L Normal 10-20 [facility] Comment on above: Performed By: #### 2 4321-2 #### KELECHI Garcia ([id number]) [facility] ([facility]) [address] [place] [address] 46021 Calcium [Mass/Vol] 7.3 mg/dL Low 8.6-10.[address] [facility] Comment on above: Performed By: #### 2 4321-2 #### KELECHI Garcia ([id number]) [facility] ([facility]) [address] [place] [address] Chloride [Moles/Vol] 89 mmol/L Low 98-107 [facility] Comment on above: Performed By: #### 2 4321-2 #### KELECHI Garcia ([id number]) [facility] ([facility]) [address] [place] [address] CO2 [Moles/Vol] 28 mmol/L Normal 21-32 [facility] Comment on above: Performed By: #### 2 4321-2 #### KELECHI Garcia ([id number]) [facility] ([facility]) [address] [place] [address] Creatinine [Mass/Vol] 7.69 mg/dL High 0.50-1.05 [facility] Comment on above: Performed By: #### 2 4321-2 #### KELECHI Garcia ([id number]) [facility] ([facility]) [address] [place] [address] 64812 Glomerular filtration rate/1.73 sq M.predicted 5 mL/min/1.73m*2 Low >60 [facility] Comment on above: Result Comment: Calc ulations of estimated GFR are performed using the 2020 CKD-EPI Study Refit equation without the race variable for the IDMS-Traceable creatinine methods. https://jasn.asnjournals.org/content//ASN.2020 585331 Performed By: #### 2 4321-2 #### KELECHI Garcia ([id number]) [facility] ([facility]) [address] [place] [address] Glucose [Mass/Vol] 74 mg/dL Normal 74-[address] [facility] Comment on above: Performed By: #### 2 4321-2 #### KELECHI Garcia ([id number]) [facility] ([facility]) [address] [place] [address] Potassium [Moles/Vol] 4.2 mmol/L Normal 3.5-5.3 [facility] Comment on above: Performed By: #### 2 4321-2 #### KELECHI Garcia ([id number]) [facility] ([facility]) [address] [place] [address] Sodium [Moles/Vol] 132 mmol/L Low 136-[address] [facility] Comment on above: Performed By: #### 2 4321-2 #### KELECHI Garcia ([id number]) [facility] ([facility]) [address] [place] [address] 62961 Urea nitrogen [Mass/Vol] 45 mg/dL High 6-23 [facility] Comment on above: Performed By: #### 2 4321-2 #### KELECHI Garcia ([id number]) [facility] ([facility]) [address] [place] [address] 87410 Blood type and Indirect anti body screen panel (Bld)on 08-31-2024 ABO group Nom (Bld) O [facility] Blood group antibody screen Ql Negative [facility] D Ag Ql (Bld) Positive [facility] ABO group Nom (Bld) O Normal [facility] Comment on above: Performed By: #### 5 7021-8 #### KELECHI Garcia ([id number]) [facility] ([facility]) [address] [place] [address] 33181 Blood group antibody screen Ql Negative [facility] Comment on above: Performed By: #### 5 7021-8 #### KELECHI Garcia ([id number]) [facility] ([facility]) [address] [place] [address] 44299 D Ag Ql (Bld) Positive [facility] Comment on above: Performed By: #### 5 7021-8 #### KELECHI Garcia ([id number]) [facility] ([facility]) [address] [place] [address] 32705 ABO group Nom (Bld) O [facility] Blood group antibody screen Ql Negative [facility] D Ag Ql (Bld) Positive [facility] Comment on above: 2nd ABO test require d. Order and Collect VERAB [facility] ABO group Nom (Bld) O Normal [facility] Comment on above: Performed By: #### 3 4532-2 #### KELECHI Garcia ([id number]) [facility] ([facility]) [address] [place] [address] Blood group antibody screen Ql Negative Normal [facility] Comment on above: Performed By: #### 3 4532-2 #### KELECHI Garcia ([id number]) [facility] ([facility]) [address] [place] [address] D Ag Ql (Bld) Positive Normal [facility] Comment on above: Result Comment: 2nd ABO test required. Order and Collect VERAB Performed By: #### 3 4532-2 #### KELECHI Garcia ([id number]) [facility] ([facility]) [address] [place] [address] CBC W Auto Differential pane l (Bld)on 08-31-2024 Basophils (Bld) [#/Vol] 0.13 10*3/uL High [facility] Basophils/100 WBC (Bld) 1 % 0.0 - 2.0 % [facility] Eosinophils (Bld) [#/Vol] 0.34 10*3/uL [facility] Eosinophils/100 WBC (Bld) 2.6 % 0.0 - 6.0 % [facility] Erythrocyte distribution width (RBC) [Ratio] 15.7 % High 11.5 - 14.5 % [facility] Hematocrit (Bld) [Volume fraction] 19.6 % Low 36.0 - 46.0 % [facility] Hemoglobin (Bld) [Mass/Vol] 6.4 g/dL Critically low 12.0 - 16.0 g/dL [facility] Immature granulocytes (Bld) [#/Vol] 0.05 10*3/uL [facility] Immature granulocytes/100 WBC (Bld) 0.4 % 0.0 - 0.9 % [facility] Comment on above: Immature Granulocyte Count (IG) includes promyelocytes, myelocytes and metamyelocytes but does not include bands. Percent differential counts (%) should be interpreted in the context of the absolute cell counts (cells/UL). Interpretation and review of laboratory results Abnormal [facility] Lymphocytes (Bld) [#/Vol] 1.29 10*3/uL [facility] Lymphocytes/100 WBC (Bld) 9.8 % 13.0 - 44.0 % [facility] MCH (RBC) [Entitic mass] 30.3 pg 26.0 - 34.0 pg [facility] MCHC (RBC) [Mass/Vol] 32.7 g/dL 32.0 - 36.0 g/dL [facility] MCV (RBC) [Entitic vol] 93 fL 80 - 100 fL [facility] Monocytes (Bld) [#/Vol] 0.95 10*3/uL High [facility] Monocytes/100 WBC (Bld) 7.2 % 2.0 - 10.0 % [facility] Neutrophils (Bld) [#/Vol] 10.47 10*3/uL High [facility] Comment on above: Percent differential counts (%) should be interpreted in the context of the absolute cell counts (cells/uL). Neutrophils/100 WBC (Bld) 79 % 40.0 - 80.0 % [facility] Nucleated RBC/100 WBC (Bld) [Ratio] 0 % [facility] Platelets (Bld) [#/Vol] 347 10*3/uL [facility] RBC (Bld) [#/Vol] 2.11 10*6/uL Low [facility] WBC (Bld) [#/Vol] 13.2 10*3/uL High [facility] Basophils (Bld) [#/Vol] 0.13 x10*3/uL [facility] 0.00-0.10 [facility] Comment on above: Performed By: #### 5 7021-8 #### KELECHI Garcia ([id number]) [facility] ([facility]) [address] [place] [address] Basophils/100 WBC (Bld) 1.0 % Normal 0.0-2.0 [facility] Comment on above: Performed By: #### 5 7021-8 #### KELECHI Garcia ([id number]) [facility] ([facility]) [address] [place] [address] Eosinophils (Bld) [#/Vol] 0.34 x10*3/uL Normal 0.00-0.40 [facility] Comment on above: Performed By: #### 5 7021-8 #### KELECHI Garcia ([id number]) [facility] ([facility]) [address] [place] [address] 24981 Eosinophils/100 WBC (Bld) 2.6 % Normal 0.0-6.0 [facility] Comment on above: Performed By: #### 5 7021-8 #### KELECHI Garcia ([id number]) [facility] ([facility]) [address] [place] [address] 80027 Erythrocyte distribution width (RBC) [Ratio] 15.7 % High 11.5-14.5 [facility] Comment on above: Performed By: #### 5 7021-8 #### KELECHI Garcia ([id number]) [facility] ([facility]) [address] [place] [address] 39253 Hematocrit (Bld) [Volume fraction] 19.6 % Low 36.0-46.0 [facility] Comment on above: Performed By: #### 5 7021-8 #### KELECHI Garcia ([id number]) [facility] ([facility]) [address] [place] [address] 38790 Hemoglobin (Bld) [Mass/Vol] 6.4 g/dL Critically low 12.0-16.0 [facility] Comment on above: Performed By: #### 5 7021-8 #### KELECHI Garcia ([id number]) [facility] ([facility]) [address] [place] [address] 70715 Immature granulocytes (Bld) [#/Vol] 0.05 x10*3/uL Normal 0.00-0.50 [facility] Comment on above: Performed By: #### 5 7021-8 #### KELECHI Garcia ([id number]) [facility] ([facility]) [address] [place] [address] 34351 Immature granulocytes/100 WBC (Bld) 0.4 % Normal 0.0-0.9 [facility] Comment on above: Result Comment: Jannie ture Granulocyte Count (IG) includes promyelocytes, myelocytes and metamyelocytes but does not include bands. Percent differential counts (%) should be interpreted in the context of the absolute cell counts (cells/UL). Performed By: #### 5 7021-8 #### KELECHI Garcia ([id number]) [facility] ([facility]) [id number] [place] [address] Lymphocytes (Bld) [#/Vol] 1.29 x10*3/uL Normal 0.80-3.00 [facility] Comment on above: Performed By: #### 5 7021-8 #### KELECHI Garcia ([id number]) [facility] ([facility]) [id number] [place] [address] 82519 Lymphocytes/100 WBC (Bld) 9.8 % Normal 13.0-44.0 [facility] Comment on above: Performed By: #### 5 7021-8 #### KELECHI Garcia ([id number]) [facility] ([facility]) [address] [place] [address] MCH (RBC) [Entitic mass] 30.3 pg Normal 26.0-34.0 [facility] Comment on above: Performed By: #### 5 7021-8 #### KELECHI Garcia ([id number]) [facility] ([facility]) [address] [place] [address] MCHC (RBC) [Mass/Vol] 32.7 g/dL Normal 32.0-36.0 [facility] Comment on above: Performed By: #### 5 7021-8 #### KELECHI Garcia ([id number]) [facility] ([facility]) [id number] [place] [address] 77612 MCV (RBC) [Entitic vol] 93 fL Normal 80-100 [facility] Comment on above: Performed By: #### 5 7021-8 #### KELECHI Garcia ([id number]) [facility] ([facility]) [address] [place] [address] Monocytes (Bld) [#/Vol] 0.95 x10*3/uL High 0.05-0.80 [facility] Comment on above: Performed By: #### 5 7021-8 #### KELECHI Garcia ([id number]) [facility] ([facility]) [address] [place] [address] 02199 Monocytes/100 WBC (Bld) 7.2 % Normal 2.0-10.0 [facility] Comment on above: Performed By: #### 5 7021-8 #### KELECHI Garcia ([id number]) [facility] ([facility]) [address] [place] [address] 02453 Neutrophils (Bld) [#/Vol] 10.47 x10*3/uL High 1.60-5.50 [facility] Comment on above: Result Comment: Perc ent differential counts (%) should be interpreted in the context of the absolute cell counts (cells/uL). Performed By: #### 5 7021-8 #### KELECHI Garcia ([id number]) [facility] ([facility]) [id number] [place] [address] 13850 Neutrophils/100 WBC (Bld) 79.0 % Normal 40.0-80.0 [facility] Comment on above: Performed By: #### 5 7021-8 #### KELECHI Garcia ([id number]) [facility] ([facility]) [address] [place] [address] 05201 Nucleated RBC/100 WBC (Bld) [Ratio] 0.0 /100 WBCs Normal 0.0-0.0 [facility] Comment on above: Performed By: #### 5 7021-8 #### KELECHI VELÁZQUEZ L ([id number]) [facility] ([facility]) [id number] [place] [address] 74287 Platelets (Bld) [#/Vol] 347 x10*3/uL Normal 150-450 [facility] Comment on above: Performed By: #### 5 7021-8 #### KELECHI Garcia ([id number]) [facility] ([facility]) [address] [place] [address] RBC (Bld) [#/Vol] 2.11 x10*6/uL Low 4.00-5.20 [facility] Comment on above: Performed By: #### 5 7021-8 #### KELECHI VELÁZQUEZ L ([id number]) [facility] ([facility]) [address] [place] [address] WBC (Bld) [#/Vol] 13.2 x10*3/uL High 4.4-11.3 [facility] Comment on above: Performed By: #### 5 7021-8 #### KELECHI Garcia ([id number]) [facility] ([facility]) [address] [place] [address] Basophils (Bld) [#/Vol] 0.19 10*3/uL High [facility] Basophils/100 WBC (Bld) 1.2 % 0.0 - 2.0 % [facility] Eosinophils (Bld) [#/Vol] 0.37 10*3/uL [facility] Eosinophils/100 WBC (Bld) 2.4 % 0.0 - 6.0 % [facility] Erythrocyte distribution width (RBC) [Ratio] 16.1 % High 11.5 - 14.5 % [facility] Hematocrit (Bld) [Volume fraction] 22.7 % Low 36.0 - 46.0 % [facility] Hemoglobin (Bld) [Mass/Vol] 7.2 g/dL Low 12.0 - 16.0 g/dL [facility] Immature granulocytes (Bld) [#/Vol] 0.12 10*3/uL [facility] Immature granulocytes/100 WBC (Bld) 0.8 % 0.0 - 0.9 % [facility] Comment on above: Immature Granulocyte Count (IG) includes promyelocytes, myelocytes and metamyelocytes but does not include bands. Percent differential counts (%) should be interpreted in the context of the absolute cell counts (cells/UL). Interpretation and review of laboratory results Abnormal [facility] Lymphocytes (Bld) [#/Vol] 1.36 10*3/uL [facility] Lymphocytes/100 WBC (Bld) 8.8 % 13.0 - 44.0 % [facility] MCH (RBC) [Entitic mass] 30 pg 26.0 - 34.0 pg [facility] MCHC (RBC) [Mass/Vol] 31.7 g/dL Low 32.0 - 36.0 g/dL [facility] MCV (RBC) [Entitic vol] 95 fL 80 - 100 fL [facility] Monocytes (Bld) [#/Vol] 1.1 10*3/uL High [facility] Monocytes/100 WBC (Bld) 7.1 % 2.0 - 10.0 % [facility] Neutrophils (Bld) [#/Vol] 12.33 10*3/uL High [facility] Comment on above: Percent differential counts (%) should be interpreted in the context of the absolute cell counts (cells/uL). Neutrophils/100 WBC (Bld) 79.7 % 40.0 - 80.0 % [facility] Nucleated RBC/100 WBC (Bld) [Ratio] 0 % [facility] Platelets (Bld) [#/Vol] 353 10*3/uL [facility] RBC (Bld) [#/Vol] 2.4 10*6/uL [facility] WBC (Bld) [#/Vol] 15.5 10*3/uL High [facility] Basophils (Bld) [#/Vol] 0.19 x10*3/uL [facility] 0.00-0.10 [facility] Comment on above: Performed By: #### 5 7021-8 #### KELECHI Garcia ([id number]) [facility] ([facility]) [id number] [place] [address] 63846 Basophils/100 WBC (Bld) 1.2 % Normal 0.0-2.0 [facility] Comment on above: Performed By: #### 5 7021-8 #### KELECHI Garcia ([id number]) [facility] ([facility]) [address] [place] [address] Eosinophils (Bld) [#/Vol] 0.37 x10*3/uL Normal 0.00-0.40 [facility] Comment on above: Performed By: #### 5 7021-8 #### KELECHI Garcia ([id number]) [facility] ([facility]) [address] [place] [address] 95891 Eosinophils/100 WBC (Bld) 2.4 % Normal 0.0-6.0 [facility] Comment on above: Performed By: #### 5 7021-8 #### KELECHI Garcia ([id number]) [facility] ([facility]) [id number] [place] [address] 98388 Erythrocyte distribution width (RBC) [Ratio] 16.1 % High 11.5-14.5 [facility] Comment on above: Performed By: #### 5 7021-8 #### KELECHI Garcia ([id number]) [facility] ([facility]) [address] [place] [address] 36429 Hematocrit (Bld) [Volume fraction] 22.7 % Low 36.0-46.0 [facility] Comment on above: Performed By: #### 5 7021-8 #### KELECHI Garcia ([id number]) [facility] ([facility]) [address] [place] [address] 82386 Hemoglobin (Bld) [Mass/Vol] 7.2 g/dL Low 12.0-16.0 [facility] Comment on above: Performed By: #### 5 7021-8 #### KELECHI Garcia ([id number]) [facility] ([facility]) [id number] [place] [address] 25289 Immature granulocytes (Bld) [#/Vol] 0.12 x10*3/uL Normal 0.00-0.50 [facility] Comment on above: Performed By: #### 5 7021-8 #### KELECHI Garcia ([id number]) [facility] ([facility]) [address] [place] [address] 32159 Immature granulocytes/100 WBC (Bld) 0.8 % Normal 0.0-0.9 [facility] Comment on above: Result Comment: Jannie ture Granulocyte Count (IG) includes promyelocytes, myelocytes and metamyelocytes but does not include bands. Percent differential counts (%) should be interpreted in the context of the absolute cell counts (cells/UL). Performed By: #### 5 7021-8 #### KELECHI Garcia ([id number]) [facility] ([facility]) [address] [place] [address] Lymphocytes (Bld) [#/Vol] 1.36 x10*3/uL Normal 0.80-3.00 [facility] Comment on above: Performed By: #### 5 7021-8 #### KELECHI Garcia ([id number]) [facility] ([facility]) [address] [place] [address] Lymphocytes/100 WBC (Bld) 8.8 % Normal 13.0-44.0 [facility] Comment on above: Performed By: #### 5 7021-8 #### KELECHI Garcia ([id number]) [facility] ([facility]) [address] [place] [address] MCH (RBC) [Entitic mass] 30.0 pg Normal 26.0-34.0 [facility] Comment on above: Performed By: #### 5 7021-8 #### KELECHI Garcia ([id number]) [facility] ([facility]) [address] [place] [address] MCHC (RBC) [Mass/Vol] 31.7 g/dL Low 32.0-36.0 [facility] Comment on above: Performed By: #### 5 7021-8 #### KELECHI Garcia ([id number]) [facility] ([facility]) [address] [place] [address] MCV (RBC) [Entitic vol] 95 fL Normal 80-100 [facility] Comment on above: Performed By: #### 5 7021-8 #### KELECHI Garcia ([id number]) [facility] ([facility]) [address] [place] [address] Monocytes (Bld) [#/Vol] 1.10 x10*3/uL High 0.05-0.80 [facility] Comment on above: Performed By: #### 5 7021-8 #### KELECHI Garcia ([id number]) [facility] ([facility]) [id number] [place] [address] 73671 Monocytes/100 WBC (Bld) 7.1 % Normal 2.0-10.0 [facility] Comment on above: Performed By: #### 5 7021-8 #### KELECHI Garcia ([id number]) [facility] ([facility]) [address] [place] [address] 74071 Neutrophils (Bld) [#/Vol] 12.33 x10*3/uL High 1.60-5.50 [facility] Comment on above: Result Comment: Perc ent differential counts (%) should be interpreted in the context of the absolute cell counts (cells/uL). Performed By: #### 5 7021-8 #### KELECHI Garcia ([id number]) [facility] ([facility]) [address] [place] [address] 81730 Neutrophils/100 WBC (Bld) 79.7 % Normal 40.0-80.0 [facility] Comment on above: Performed By: #### 5 7021-8 #### KELECHI Garcia ([id number]) [facility] ([facility]) [id number] [place] [address] 24546 Nucleated RBC/100 WBC (Bld) [Ratio] 0.0 /100 WBCs Normal 0.0-0.0 [facility] Comment on above: Performed By: #### 5 7021-8 #### KELECHI Garcia ([id number]) [facility] ([facility]) [id number] [place] [address] 12786 Platelets (Bld) [#/Vol] 353 x10*3/uL Normal 150-450 [facility] Comment on above: Performed By: #### 5 7021-8 #### KELECHI Garcia ([id number]) [facility] ([facility]) [address] [place] [address] RBC (Bld) [#/Vol] 2.40 x10*6/uL Low 4.00-5.20 [facility] Comment on above: Performed By: #### 5 7021-8 #### KELECHI VELÁZQUEZ L ([id number]) [facility] ([facility]) [address] [place] [address] WBC (Bld) [#/Vol] 15.5 x10*3/uL High 4.4-11.3 [facility] Comment on above: Performed By: #### 5 7021-8 #### KELECHI Garcia ([id number]) [facility] ([facility]) [address] [place] [address] Basophils (Bld) [#/Vol] 0.16 10*3/uL High [facility] Basophils/100 WBC (Bld) 1.1 % 0.0 - 2.0 % [facility] Eosinophils (Bld) [#/Vol] 0.46 10*3/uL High [facility] Eosinophils/100 WBC (Bld) 3.2 % 0.0 - 6.0 % [facility] Immature granulocytes (Bld) [#/Vol] 0.07 10*3/uL [facility] Immature granulocytes/100 WBC (Bld) 0.5 % 0.0 - 0.9 % [facility] Comment on above: Immature Granulocyte Count (IG) includes promyelocytes, myelocytes and metamyelocytes but does not include bands. Percent differential counts (%) should be interpreted in the context of the absolute cell counts (cells/UL). Lymphocytes (Bld) [#/Vol] 1.77 10*3/uL [facility] Lymphocytes/100 WBC (Bld) 12.3 % 13.0 - 44.0 % [facility] Monocytes (Bld) [#/Vol] 1.25 10*3/uL High [facility] Monocytes/100 WBC (Bld) 8.7 % 2.0 - 10.0 % [facility] Neutrophils (Bld) [#/Vol] 10.69 10*3/uL High [facility] Comment on above: Percent differential counts (%) should be interpreted in the context of the absolute cell counts (cells/uL). Neutrophils/100 WBC (Bld) 74.2 % 40.0 - 80.0 % [facility] Basophils (Bld) [#/Vol] 0.16 x10*3/uL High 0.00-0.10 [facility] Comment on above: Performed By: #### 5 7021-8 #### KELECHI Garcia ([id number]) [facility] ([facility]) [id number] [place] [address] 31317 Basophils/100 WBC (Bld) 1.1 % Normal 0.0-2.0 [facility] Comment on above: Performed By: #### 5 7021-8 #### KELECHI VELÁZQUEZ L ([id number]) [facility] ([facility]) [address] [place] [address] 65815 Eosinophils (Bld) [#/Vol] 0.46 x10*3/uL High 0.00-0.40 [facility] Comment on above: Performed By: #### 5 7021-8 #### KELECHI VELEZMODEBBI L ([id number]) [facility] ([facility]) [address] [place] [address] 92428 Eosinophils/100 WBC (Bld) 3.2 % Normal 0.0-6.0 [facility] Comment on above: Performed By: #### 5 7021-8 #### KELECHI VELEZMODEBBI L ([id number]) [facility] ([facility]) [id number] [place] [address] 76471 Immature granulocytes (Bld) [#/Vol] 0.07 x10*3/uL Normal 0.00-0.50 [facility] Comment on above: Performed By: #### 5 7021-8 #### KELECHI VELEZMODEBBI L ([id number]) [facility] ([facility]) [address] [place] [address] 91833 Immature granulocytes/100 WBC (Bld) 0.5 % Normal 0.0-0.9 [facility] Comment on above: Result Comment: Jannie ture Granulocyte Count (IG) includes promyelocytes, myelocytes and metamyelocytes but does not include bands. Percent differential counts (%) should be interpreted in the context of the absolute cell counts (cells/UL). Performed By: #### 5 7021-8 #### KELECHI Garcia ([id number]) [facility] ([facility]) [address] [place] [address] Lymphocytes (Bld) [#/Vol] 1.77 x10*3/uL Normal 0.80-3.00 [facility] Comment on above: Performed By: #### 5 7021-8 #### KELECHI Garcia ([id number]) [facility] ([facility]) [address] [place] [address] Lymphocytes/100 WBC (Bld) 12.3 % Normal 13.0-44.0 [facility] Comment on above: Performed By: #### 5 7021-8 #### KELECHI VELEZMODEBBI L ([id number]) [facility] ([facility]) [address] [place] [address] Monocytes (Bld) [#/Vol] 1.25 x10*3/uL High 0.05-0.80 [facility] Comment on above: Performed By: #### 5 7021-8 #### KELECHI Garcia ([id number]) [facility] ([facility]) [address] [place] [address] Monocytes/100 WBC (Bld) 8.7 % Normal 2.0-10.0 [facility] Comment on above: Performed By: #### 5 7021-8 #### KELECHI VELEZMOTZER L ([id number]) [facility] ([facility]) [address] [place] [address] Neutrophils (Bld) [#/Vol] 10.69 x10*3/uL High 1.60-5.50 [facility] Comment on above: Result Comment: Perc ent differential counts (%) should be interpreted in the context of the absolute cell counts (cells/uL). Performed By: #### 5 7021-8 #### KELECHI Garcia ([id number]) [facility] ([facility]) [address] [place] [address] Neutrophils/100 WBC (Bld) 74.2 % Normal 40.0-80.0 [facility] Comment on above: Performed By: #### 5 7021-8 #### KELECHI Garcia ([id number]) [facility] ([facility]) [address] [place] [address] Basophils (Bld) [#/Vol] 0.18 10*3/uL High [facility] Basophils/100 WBC (Bld) 1.2 % 0.0 - 2.0 % [facility] Eosinophils (Bld) [#/Vol] 0.39 10*3/uL [facility] Eosinophils/100 WBC (Bld) 2.5 % 0.0 - 6.0 % [facility] Erythrocyte distribution width (RBC) [Ratio] 16.3 % High 11.5 - 14.5 % [facility] Hematocrit (Bld) [Volume fraction] 21.9 % Low 36.0 - 46.0 % [facility] Hemoglobin (Bld) [Mass/Vol] 7 g/dL Low 12.0 - 16.0 g/dL [facility] Immature granulocytes (Bld) [#/Vol] 0.09 10*3/uL [facility] Immature granulocytes/100 WBC (Bld) 0.6 % 0.0 - 0.9 % [facility] Comment on above: Immature Granulocyte Count (IG) includes promyelocytes, myelocytes and metamyelocytes but does not include bands. Percent differential counts (%) should be interpreted in the context of the absolute cell counts (cells/UL). Interpretation and review of laboratory results Abnormal [facility] Lymphocytes (Bld) [#/Vol] 1.77 10*3/uL [facility] Lymphocytes/100 WBC (Bld) 11.4 % 13.0 - 44.0 % [facility] MCH (RBC) [Entitic mass] 30.4 pg 26.0 - 34.0 [facility] [Mass/Vol] 32 g/dL 32.0 - 36.0 g/dL [facility] MCV (RBC) [Entitic vol] 95 fL 80 - 100 fL [facility] Monocytes (Bld) [#/Vol] 1.34 10*3/uL High [facility] Monocytes/100 WBC (Bld) 8.6 % 2.0 - 10.0 % [facility] Neutrophils (Bld) [#/Vol] 11.75 10*3/uL High [facility] Comment on above: Percent differential counts (%) should be interpreted in the context of the absolute cell counts (cells/uL). Neutrophils/100 WBC (Bld) 75.7 % 40.0 - 80.0 % [facility] Nucleated RBC/100 WBC (Bld) [Ratio] 0 % [facility] Platelets (Bld) [#/Vol] 341 10*3/uL [facility] RBC (Bld) [#/Vol] 2.3 10*6/uL Low [facility] WBC (Bld) [#/Vol] 15.5 10*3/uL High [facility] Basophils (Bld) [#/Vol] 0.18 x10*3/uL High 0.00-0.10 [facility] Comment on above: Performed By: #### 5 7021-8 #### KELECHI Garcia ([id number]) [facility] ([facility]) [address] [place] [address] Basophils/100 WBC (Bld) 1.2 % Normal 0.0-2.0 [facility] Comment on above: Performed By: #### 5 7021-8 #### KELECHI VELEZMOTZZAMZAM L ([id number]) [facility] ([facility]) [address] [place] [address] Eosinophils (Bld) [#/Vol] 0.39 x10*3/uL Normal 0.00-0.40 [facility] Comment on above: Performed By: #### 5 7021-8 #### KELECHI VELÁZQUEZ L ([id number]) [facility] ([facility]) [address] [place] [id number] Eosinophils/100 WBC (Bld) 2.5 % Normal 0.0-6.0 [facility] Comment on above: Performed By: #### 5 7021-8 #### KELECHI Garcia ([id number]) [facility] ([facility]) [address] [place] [id number] Erythrocyte distribution width (RBC) [Ratio] 16.3 % High 11.5-14.5 [facility] Comment on above: Performed By: #### 5 7021-8 #### KELECHI Garcia ([id number]) [facility] ([facility]) [address] [place] [address] [address]09 Hematocrit (Bld) [Volume fraction] 21.9 % Low 36.0-46.0 [facility] Comment on above: Performed By: #### 5 7021-8 #### KELECHI Garcia ([id number]) [facility] ([facility]) [address] [place] [address] 05602 Hemoglobin (Bld) [Mass/Vol] 7.0 g/dL Low 12.0-16.0 [facility] Comment on above: Performed By: #### 5 7021-8 #### KELECHI Garcia ([id number]) [facility] ([facility]) [address] [place] [address] 33752 Immature granulocytes (Bld) [#/Vol] 0.09 x10*3/uL Normal 0.00-0.50 [facility] Comment on above: Performed By: #### 5 7021-8 #### KELECHI Garcia ([id number]) [facility] ([facility]) [address] [place] [address] 60736 Immature granulocytes/100 WBC (Bld) 0.6 % Normal 0.0-0.9 [facility] Comment on above: Result Comment: Jannie ture Granulocyte Count (IG) includes promyelocytes, myelocytes and metamyelocytes but does not include bands. Percent differential counts (%) should be interpreted in the context of the absolute cell counts (cells/UL). Performed By: #### 5 7021-8 #### KELECHI Garcia ([id number]) [facility] ([facility]) [id number] [place] [address] 47639 Lymphocytes (Bld) [#/Vol] 1.77 x10*3/uL Normal 0.80-3.00 [facility] Comment on above: Performed By: #### 5 7021-8 #### KELECHI Garcia ([id number]) [facility] ([facility]) [address] [place] [address] 42122 Lymphocytes/100 WBC (Bld) 11.4 % Normal 13.0-44.0 [facility] Comment on above: Performed By: #### 5 7021-8 #### KELECHI Garcia ([id number]) [facility] ([facility]) [address] [place] [address] 43487 MCH (RBC) [Entitic mass] 30.4 pg Normal 26.0-34.0 [facility] Comment on above: Performed By: #### 5 7021-8 #### KELECHI Garcia ([id number]) [facility] ([facility]) [address] [place] [address] 77189 MCHC (RBC) [Mass/Vol] 32.0 g/dL Normal 32.0-36.0 [facility] Comment on above: Performed By: #### 5 7021-8 #### KELECHI Garcia ([id number]) [facility] ([facility]) [address] [place] [address] 89488 MCV (RBC) [Entitic vol] 95 fL Normal 80-100 [facility] Comment on above: Performed By: #### 5 7021-8 #### KELECHI Garcia ([id number]) [facility] ([facility]) [address] [place] [address] 50649 Monocytes (Bld) [#/Vol] 1.34 x10*3/uL High 0.05-0.80 [facility] Comment on above: Performed By: #### 5 7021-8 #### KELECHI Garcia ([id number]) [facility] ([facility]) [address] [place] [address] Monocytes/100 WBC (Bld) 8.6 % Normal 2.0-10.0 [facility] Comment on above: Performed By: #### 5 7021-8 #### KELECHI Garcia ([id number]) [facility] ([facility]) [address] [place] [address] Neutrophils (Bld) [#/Vol] 11.75 x10*3/uL High 1.60-5.50 [facility] Comment on above: Result Comment: Perc ent differential counts (%) should be interpreted in the context of the absolute cell counts (cells/uL). Performed By: #### 5 7021-8 #### KELECHI Garcia ([id number]) [facility] ([facility]) [address] [place] [address] Neutrophils/100 WBC (Bld) 75.7 % Normal 40.0-80.0 [facility] Comment on above: Performed By: #### 5 7021-8 #### KELECHI Garcia ([id number]) [facility] ([facility]) [address] [place] [address] Nucleated RBC/100 WBC (Bld) [Ratio] 0.0 /100 WBCs Normal 0.0-0.0 [facility] Comment on above: Performed By: #### 5 7021-8 #### KELECHI Garcia ([id number]) [facility] ([facility]) [address] [place] [address] 69969 Platelets (Bld) [#/Vol] 341 x10*3/uL Normal 150-450 [facility] Comment on above: Performed By: #### 5 7021-8 #### KELECHI Garcia ([id number]) [facility] ([facility]) [address] [place] [address] RBC (Bld) [#/Vol] 2.30 x10*6/uL Low 4.00-5.20 [facility] Comment on above: Performed By: #### 5 7021-8 #### KELECHI Garcia ([id number]) [facility] ([facility]) [address] [place] [address] WBC (Bld) [#/Vol] 15.5 x10*3/uL High 4.4-11.3 [facility] Comment on above: Performed By: #### 5 7021-8 #### KELECHI Garcia ([id number]) [facility] ([facility]) [address] [place] [address] 89008 CBC panel Auto (Bld)on 08-31 Erythrocyte distribution width (RBC) [Ratio] 15.9 % High 11.5 - 14.5 % [facility] Hematocrit (Bld) [Volume fraction] 26.1 % Low 36.0 - 46.0 % [facility] Hemoglobin (Bld) [Mass/Vol] 8.2 g/dL Low 12.0 - 16.0 g/dL [facility] Interpretation and review of laboratory results Abnormal [facility] MCH (RBC) [Entitic mass] 30.3 pg 26.0 - 34.0 pg [facility] MCHC (RBC) [Mass/Vol] 31.4 g/dL Low 32.0 - 36.0 g/dL [facility] MCV (RBC) [Entitic vol] 96 fL 80 - 100 fL [facility] Nucleated RBC/100 WBC (Bld) [Ratio] 0 % [facility] Platelets (Bld) [#/Vol] 450 10*3/uL [facility] RBC (Bld) [#/Vol] 2.71 10*6/uL Low [facility] WBC (Bld) [#/Vol] 15.2 10*3/uL High [facility] Erythrocyte distribution width (RBC) [Ratio] 15.9 % High 11.5-14.5 [facility] Comment on above: Performed By: #### 5 7021-8 #### KELECHI Garcia ([id number]) [facility] ([facility]) [address] [place] [address] Hematocrit (Bld) [Volume fraction] 26.1 % Low 36.0-46.0 [facility] Comment on above: Performed By: #### 5 7021-8 #### KELECIH Garcia ([id number]) [facility] ([facility]) [address] [place] [address] 90507 Hemoglobin (Bld) [Mass/Vol] 8.2 g/dL Low 12.0-16.0 [facility] Comment on above: Performed By: #### 5 7021-8 #### KELECHI Garcia ([id number]) [facility] ([facility]) [address] [place] [address] 68879 MCH (RBC) [Entitic mass] 30.3 pg Normal 26.0-34.0 [facility] Comment on above: Performed By: #### 5 7021-8 #### KELECHI Garcia ([id number]) [facility] ([facility]) [address] [place] [address] 97665 MCHC (RBC) [Mass/Vol] 31.4 g/dL Low 32.0-36.0 [facility] Comment on above: Performed By: #### 5 7021-8 #### KELECHI Garcia ([id number]) [facility] ([facility]) [address] [place] [address] 29430 MCV (RBC) [Entitic vol] 96 fL Normal 80-100 [facility] Comment on above: Performed By: #### 5 7021-8 #### KELECHI Garcia ([id number]) [facility] ([facility]) [address] [place] [address] 45052 Nucleated RBC/100 WBC (Bld) [Ratio] 0.0 /100 WBCs Normal 0.0-0.0 [facility] Comment on above: Performed By: #### 5 7021-8 #### KELECHI Garcia ([id number]) [facility] ([facility]) [address] [place] [address] 10303 Platelets (Bld) [#/Vol] 450 x10*3/uL Normal 150-450 [facility] Comment on above: Performed By: #### 5 7021-8 #### KELECHI VELÁZQUEZ L ([id number]) [facility] ([facility]) [address] [place] [address] RBC (Bld) [#/Vol] 2.71 x10*6/uL Low 4.00-5.20 [facility] Comment on above: Performed By: #### 5 7021-8 #### KELECHI VELÁZQUEZ L ([id number]) [facility] ([facility]) [address] [place] [address] WBC (Bld) [#/Vol] 15.2 x10*3/uL High 4.4-11.3 [facility] Comment on above: Performed By: #### 5 7021-8 #### KELECHI VELÁZQUEZ L ([id number]) [facility] ([facility]) [address] [place] [address] Complete blood count panelon 08-31-2024 Erythrocyte distribution width (RBC) [Ratio] 16.3 % High 11.5-14.5 [facility] Comment on above: Performed By: #### 5 8410-2 #### KELECHI VELÁZQUEZ L ([id number]) [facility] ([facility]) [address] [place] [address] Performed By: #### 5 7021-8 #### KELECHI VELÁZQUEZ L ([id number]) [facility] ([facility]) [address] [place] [address] Hematocrit (Bld) [Volume fraction] 22.2 % Low 36.0-46.0 [facility] Comment on above: Performed By: #### 5 8410-2 #### KELECHI VELÁZQUEZ L ([id number]) [facility] ([facility]) [address] [place] [address] Performed By: #### 5 7021-8 #### KELECHI VELÁZQUEZ L ([id number]) [facility] ([facility]) [address] [place] [address] Hemoglobin (Bld) [Mass/Vol] 7.2 g/dL Low 12.0-16.0 [facility] Comment on above: Performed By: #### 5 8410-2 #### KELECHI Garcia ([id number]) [facility] ([facility]) [address] [place] [address] Performed By: #### 5 7021-8 #### KELECHI Garcia ([id number]) [facility] ([facility]) [address] [place] [address] MCH (RBC) [Entitic mass] 30.8 pg Normal 26.0-34.0 [facility] Comment on above: Performed By: #### 5 8410-2 #### KELECHI Gracia ([id number]) [facility] ([facility]) [address] [place] [address] Performed By: #### 5 7021-8 #### KELECHI Garcia ([id number]) [facility] ([facility]) [address] [place] [address] MCHC (RBC) [Mass/Vol] 32.4 g/dL Normal 32.0-36.0 [facility] Comment on above: Performed By: #### 5 8410-2 #### KELECHI Garcia ([id number]) [facility] ([facility]) [address] [place] [address] Performed By: #### 5 7021-8 #### KELECHI Garcia ([id number]) [facility] ([facility]) [address] [place] [address] MCV (RBC) [Entitic vol] 95 fL Normal 80-100 [facility] Comment on above: Performed By: #### 5 8410-2 #### KELECHI Garcia ([id number]) [facility] ([facility]) [address] [place] [address] Performed By: #### 5 7021-8 #### KELECHI Garcia ([id number]) [facility] ([facility]) [address] [place] [address] Nucleated RBC/100 WBC (Bld) [Ratio] 0.0 /100 WBCs Normal 0.0-0.0 [facility] Comment on above: Performed By: #### 5 8410-2 #### KELECHI Garcia ([id number]) [facility] ([facility]) [address] [place] [address] Performed By: #### 5 7021-8 #### KELECHI Garcia ([id number]) [facility] ([facility]) [address] [place] [address] Platelets (Bld) [#/Vol] 332 x10*3/uL Normal 150-450 [facility] Comment on above: Performed By: #### 5 8410-2 #### KELECHI Garcia ([id number]) [facility] ([facility]) [address] [place], [place] [address] Performed By: #### 5 7021-8 #### KELECHI Garcia ([id number]) [facility] ([facility]) [address] [place] [address] RBC (Bld) [#/Vol] 2.34 x10*6/uL Low 4.00-5.20 [facility] Comment on above: Performed By: #### 5 8410-2 #### KELECHI Garcia ([id number]) [facility] ([facility]) [address] [place], [place] [address] Performed By: #### 5 7021-8 #### KELECHI Garcia ([id number]) [facility] ([facility]) [address] [place] [address] WBC (Bld) [#/Vol] 14.4 x10*3/uL High 4.4-11.3 [facility] Comment on above: Performed By: #### 5 8410-2 #### KELECHI Garcia ([id number]) [facility] ([facility]) [address] [place], [place] [address] Performed By: #### 5 7021-8 #### KELECHI Garcia ([id number]) [facility] ([facility]) [address] [place] [address] Comprehensive metabolic 2000 panelon 08-31-2024 Albumin BCP dye [Mass/Vol] 3.2 g/dL Low 3.4 - 5.0 g/dL [facility] ALP [Catalytic activity/Vol] 89 U/L 33 - 136 U/L [facility] ALT With P-5'-P [Catalytic activity/Vol] 18 U/L 7 - 45 U/L [facility] Comment on above: Patients treated wit h Sulfasalazine may generate falsely decreased results for ALT. Anion gap [Moles/Vol] 19 mmol/L [facility] AST With P-5'-P [Catalytic activity/Vol] 43 U/L High 9 - 39 U/L [facility] Bilirubin [Mass/Vol] 0.7 mg/dL 0.0 - 1 .2 mg/dL [facility] Calcium [Mass/Vol] 7.8 mg/dL Low 8.6 - 10. 6 mg/dL [facility] Chloride [Moles/Vol] 88 mmol/L Low 98 - 10 7 mmol/L [facility] CO2 [Moles/Vol] 29 mmol/L 21 - 32 mmol/L [facility] Creatinine [Mass/Vol] 7.69 mg/dL High 0.50 - 1.05 mg/dL [facility] GFR/1.73 sq M.predicted among non-blacks MDRD (S/P/Bld) [Vol rate/Area] 5 mL/min/{1.73_m2} Low - PINF [facility] Comment on above: Calculations of katy mated GFR are performed using the 2020 CKD-EPI Study Refit equation without the race variable for the IDMS-Traceable creatinine methods. https://jasn.asnjournals.org/content//ASN.2020 351804 Glucose [Mass/Vol] 86 mg/dL 74 - 99 mg/dL [facility] Potassium [Moles/Vol] 4.1 mmol/L 3.5 - 5.3 mmol/L [facility] Protein [Mass/Vol] 5.8 g/dL Low 6.4 - 8.2 g/dL [facility] Sodium [Moles/Vol] 132 mmol/L Low 136 - 145 mmol/L [facility] Urea nitrogen [Mass/Vol] 47 mg/dL High 6 - 23 mg/dL [facility] Albumin BCP dye [Mass/Vol] 3.2 g/dL Low 3.4-5.0 [facility] Comment on above: Performed By: #### 2 4323-8 #### KELECHI Garcia ([id number]) [facility] ([facility]) [address] [place] [address] 12366 ALP [Catalytic activity/Vol] 89 U/L Normal 33-136 [facility] Comment on above: Performed By: #### 2 4323-8 #### KELECHI Garcia ([id number]) [facility] ([facility]) [address] [place] [address] 70659 ALT With P-5'-P [Catalytic activity/Vol] 18 U/L Normal 7-45 [facility] Comment on above: Result Comment: Patsy ents treated with Sulfasalazine may generate falsely decreased results for ALT. Performed By: #### 2 4323-8 #### KELECHI Garcia ([id number]) [facility] ([facility]) [address] [place] [address] 70752 Anion gap [Moles/Vol] 19 mmol/L Normal [facility] Comment on above: Performed By: #### 2 4323-8 #### KELECHI Garcia ([id number]) [facility] ([facility]) [address] [place] [address] 35582 AST With P-5'-P [Catalytic activity/Vol] 43 U/L High 9-39 [facility] Comment on above: Performed By: #### 2 4323-8 #### KELECHI Garcia ([id number]) [facility] ([facility]) [address] [place] [address] 65743 Bilirubin [Mass/Vol] 0.7 mg/dL Normal 0.0-1.2 [facility] Comment on above: Performed By: #### 2 4323-8 #### KELECHI Garcia ([id number]) [facility] ([facility]) [address] [place] [address] Calcium [Mass/Vol] 7.8 mg/dL Low 8.6-10.[address] [facility] Comment on above: Performed By: #### 2 4323-8 #### KELECHI Garcia ([id number]) [facility] ([facility]) [address] [place] [address] Chloride [Moles/Vol] 88 mmol/L Low 98-107 [facility] Comment on above: Performed By: #### 2 4323-8 #### KELECHI VELÁZQUEZ L ([id number]) [facility] ([facility]) [address] [place] [address] CO2 [Moles/Vol] 29 mmol/L Normal 21-32 [facility] Comment on above: Performed By: #### 2 4323-8 #### KELECHI Garcia ([id number]) [facility] ([facility]) [address] [place] [address] Creatinine [Mass/Vol] 7.69 mg/dL High 0.50-1.05 [facility] Comment on above: Performed By: #### 2 4323-8 #### KELECHI Garcia ([id number]) [facility] ([facility]) [address] [place] [address] 42924 Glomerular filtration rate/1.73 sq M.predicted 5 mL/min/1.73m*2 Low >60 [facility] Comment on above: Result Comment: Calc ulations of estimated GFR are performed using the 2020 CKD-EPI Study Refit equation without the race variable for the IDMS-Traceable creatinine methods. https://jasn.asnjournals.org/content//ASN.2020 924244 Performed By: #### 2 4323-8 #### KELECHI Garcia ([id number]) [facility] ([facility]) [address] [place] [address] Glucose [Mass/Vol] 86 mg/dL Normal 74-[address] [facility] Comment on above: Performed By: #### 2 4323-8 #### KELECHI VELÁZQUEZ L ([id number]) [facility] ([facility]) [address] [place] [address] 39785 Potassium [Moles/Vol] 4.1 mmol/L Normal 3.5-5.3 [facility] Comment on above: Performed By: #### 2 4323-8 #### KELECHI VELÁZQUEZ L ([id number]) [facility] ([facility]) [address] [place] [address] 07999 Protein [Mass/Vol] 5.8 g/dL Low 6.4-8.[address] [facility] Comment on above: Performed By: #### 2 4323-8 #### KELECHI VELÁZQUEZ L ([id number]) [facility] ([facility]) [address] [place] [address] 99450 Sodium [Moles/Vol] 132 mmol/L Low 136-[address] [facility] Comment on above: Performed By: #### 2 4323-8 #### KELECHI VELÁZQUEZ L ([id number]) [facility] ([facility]) [address] [place] [address] 20571 Urea nitrogen [Mass/Vol] 47 mg/dL High 6-23 [facility] Comment on above: Performed By: #### 2 4323-8 #### KELECHI VELÁZQUEZ L ([id number]) [facility] ([facility]) [address] [place] [address] 20093 HBV surface Ab Qn (S)on 08-04 Interpretation and review of laboratory results Abnormal [facility] HBV surface Ag IA Qlon 08-31 Interpretation and review of laboratory results Normal [facility] Hepatitis B surface antibody on 08-31-2024 HBV surface Ab Qn (S) High [facility] Comment on above: Interpretive Criteri a: <10 mIU/mL Nonreactive >=10 mIU/mL Reactive Biotin interference may cause falsely decreased results. Patients taking a Biotin dose of up to 5 mg/day should refrain from taking Biotin for 24 hours before sample collection. Providers may contact their local laboratory for further information. Hepatitis B surface antigeno n 08-31-2024 HBV surface Ag IA Ql Non-Reactive Nonreactive [facility] Comment on above: Biotin interference may cause falsely decreased results. Patients taking a Biotin dose of up to 5 mg/day should refrain from taking Biotin for 24 hours before sample collection. Providers may contact their local laboratory for further information. Hepatitis B virus surface Ab on 08-31-2024 HBV surface Ab Qn (S) >1000.0 High <10.0 [facility] Comment on above: Result Comment: Inte rpretive Criteria: <10 mIU/mL Nonreactive >=10 mIU/mL Reactive Biotin interference may cause falsely decreased results. Patients taking a Biotin dose of up to 5 mg/day should refrain from taking Biotin for 24 hours before sample collection. Providers may contact their local laboratory for further information. Performed By: #### 5 7021-8 #### KELECHI Garcia ([id number]) [facility] ([facility]) [address] [place] [address] Hepatitis B virus surface Ag on 08-31-2024 HBV surface Ag IA Ql Non-Reactive Normal Nonreactive [facility] Comment on above: Result Comment: Biot in interference may cause falsely decreased results. Patients taking a Biotin dose of up to 5 mg/day should refrain from taking Biotin for 24 hours before sample collection. Providers may contact their local laboratory for further information. Performed By: #### 5 7021-8 #### KELECHI Garcia ([id number]) [facility] ([facility]) [address] [place] [address] Iron and Iron binding capaci ty panelon 08-31-2024 Iron [Mass/Vol] 29 ug/dL Low 35 - 150 ug/dL [facility] Iron binding capacity [Mass/Vol] 139 ug/dL Low 240 - 445 ug/dL [facility] Iron binding capacity.unsaturated [Mass/Vol] 110 ug/dL 110 - 370 ug/dL [facility] Iron saturation [Mass fraction] 21 % Low 25 - 45 % [facility] Iron [Mass/Vol] 29 ug/dL Low 35-150 [facility] Comment on above: Performed By: #### 5 0190-8 #### KELECHI Garcia ([id number]) [facility] ([facility]) [id number] [place], [place] [address] Iron binding capacity [Mass/Vol] 139 ug/dL Low 240-445 [facility] Comment on above: Performed By: #### 5 0190-8 #### KELECHI Garcia ([id number]) [facility] ([facility]) [address] [place], [place] [address] Iron binding capacity.unsaturated [Mass/Vol] 110 ug/dL Normal 110-370 [facility] Comment on above: Performed By: #### 5 0190-8 #### KELECHI Garcia ([id number]) [facility] ([facility]) [address] [place] [address] 75668 Iron saturation [Mass fraction] 21 % Low 25-45 [facility] Comment on above: Performed By: #### 5 0190-8 #### KELECHI Garcia ([id number]) [facility] ([facility]) [address] [place] [address] 15792 Laboratory - Hematology and Cell countson 08-31-2024 Erythrocyte distribution width (RBC) [Ratio] 16.3 % High 11.5 - 14.5 % [facility] Hematocrit (Bld) [Volume fraction] 22.2 % Low 36.0 - 46.0 % [facility] Hemoglobin (Bld) [Mass/Vol] 7.2 g/dL Low 12.0 - 16.0 g/dL [facility] MCH (RBC) [Entitic mass] 30.8 pg 26.0 - 34.0 pg [facility] MCHC (RBC) [Mass/Vol] 32.4 g/dL 32.0 - 36.0 g/dL [facility] MCV (RBC) [Entitic vol] 95 fL 80 - 100 fL [facility] Nucleated RBC/100 WBC (Bld) [Ratio] 0 % [facility] Platelets (Bld) [#/Vol] 332 10*3/uL [facility] RBC (Bld) [#/Vol] 2.34 10*6/uL Low [facility] WBC (Bld) [#/Vol] 14.4 10*3/uL High [facility] Magnesiumon 08-31-2024 Magnesium [Mass/Vol] 2.04 mg/dL 1.60 - 2.40 mg/dL [facility] Magnesium [Mass/Vol] 2.04 mg/dL Normal 1.60-2.40 [facility] Comment on above: Performed By: #### 1 [id number] #### KELECHI Garcia ([id number]) [facility] ([facility]) [address] [place] [id number] Magnesium [Mass/Vol]on 08-31 Interpretation and review of laboratory results Normal [facility] No Panel Informationon 08-31 Interpretation and review of laboratory results Abnormal [facility] Interpretation and review of laboratory results Abnormal [facility] Interpretation and review of laboratory results Abnormal [facility] PT and aPTT panel Coag (PPP) on 08-31-2024 aPTT Coag (PPP) [Time] 25 s Low [facility] INR Coag (PPP) [Relative time] 1 {INR} 0.9 - 1.1 [facility] Interpretation and review of laboratory results Abnormal [facility] [facility] Coag (PPP) [Time] 11.4 s [facility] The APTT is no longe r used for monitoring Unfractionated Heparin Therapy. For monitoring Heparin Therapy, use the Heparin Assay. [facility] aPTT Coag (PPP) [Time] 25 s Low 26-36 [facility] Comment on above: Order Comment: The A PTT is no longer used for monitoring Unfractionated Heparin Therapy. For monitoring Heparin Therapy, use the Heparin Assay. Performed By: #### 3 4529-8 #### KELECHI Garcia ([id number]) [facility] ([facility]) [address] [place] [address] 96181 INR Coag (PPP) [Relative time] 1.0 Normal 0.9-1.1 [facility] Comment on above: Order Comment: The A PTT is no longer used for monitoring Unfractionated Heparin Therapy. For monitoring Heparin Therapy, use the Heparin Assay. Performed By: #### 3 4529-8 #### KELECHI Garcia ([id number]) [facility] ([facility]) [address] [place] [address] 04407 PT Coag (PPP) [Time] 11.4 s Normal 9.8-12.4 [facility] Comment on above: Order Comment: The A PTT is no longer used for monitoring Unfractionated Heparin Therapy. For monitoring Heparin Therapy, use the Heparin Assay. Performed By: #### 3 4529-8 #### KELECHI Garcia ([id number]) [facility] ([facility]) [id number] [place] [address] 15455 Phosphateon 08-31-2024 Phosphate [Mass/Vol] 7.0 mg/dL High 2.5-4.9 [facility] Comment on above: Performed By: #### 2 [id number] #### KELECHI Garcia ([id number]) [facility] ([facility]) [address] [place] [address] 86669 Phosphate [Mass/Vol]on 08-31 Interpretation and review of laboratory results Abnormal [facility] Phosphoruson 08-31-2024 Phosphate [Mass/Vol] 7 mg/dL High 2.5 - 4 .9 mg/dL [facility] Vancomycinon 08-31-2024 Vancomycin [Mass/Vol] 35.9 ug/mL High 5.0 - 20.0 ug/mL [facility] Vancomycin [Mass/Vol] 35.9 ug/mL High 5.0-20.0 [facility] Comment on above: Order Comment: ADD O [...] By: #### 5 7021-8 #### KELECHI Garcia ([id number]) [facility] ([facility]) [address] [place] [address] Vancomycin [Mass/Vol]on 08-04 Vancomycin levels can be [...] 30.0-40.0 ug/mL Trough (all ages): 10.0-20.0 ug/mL [facility] US RLE Soft Tissue OR Joint Limitedon [...] 08/30/2024 10:40 Read by: HONORIO GRANDE MD, Date: 08/30/2024 10:40 [facility] CTA RT Lower Extremity w/wo contraston [...] ROBSON GENAO MD, MD Date: 08/30/2024 07:31 [facility] Comment on above: Order Comment: TRAUM A Please call CT department to schedule [phone] Leukodepleted Red Cells [facility] Product Code E0336 [facility] Comment on above: Performed By: #### R LRC ####[place] [address] Rel By AMI [facility] Comment on above: Performed By: #### R LRC ####[place] [address] Rel Date 08/29/2024 [facility] Comment on above: Performed By: #### R LRC ####[place] [address] Rel Time 1545 [facility] Comment on above: Performed By: #### R LRC ####[place] [address] Rel To MR [facility] Comment on above: Performed By: #### R LRC ####[place] [address] Unit [id number] [facility] Comment on above: Performed By: #### R LRC ####[place] [address] CT RT Lower Extremity wo con traston [...] AM EDT Read by: RONALD RICE MD, Date: 08/27/2024 03:58 [facility] Comment on above: Order Comment: witho ut Contrast (No Oral or IV contrast) - look for abscess, right thigh Leukodepleted Red Cells [facility] 08-20-2024 Product Code E0336 [facility] Comment on above: Performed By: #### R LRC ####[place] [address] Rel By [facility] Comment on above: Performed By: #### R LRC ####[place] [address] Rel Date 08/20/24 [facility] Comment on above: Performed By: #### R LRC ####[place] [id number] [place] [address] Rel Time 09:30 [facility] Comment on above: Performed By: #### R LRC ####[place] [address] Rel To [facility] Comment on above: Performed By: #### R LRC ####[facility] [place], [place] [address] [id number] [phone] [facility] Comment on above: Performed By: #### R LRC ####[facility] [address] [place] [id number] XR Chest 1 view-Mobileon XR Chest 1 view-Mobile CHEST CPT 11679 - RADIOLOGIC EXAMINATION, CHEST; SINGLE VIEW COMPARISON: [...] CARLY GIBSON MD, MD Date: 08/18/2024 09:47 [facility] Comment on above: Order Comment: TRAUM [...] JORGITO LA MD, MD Date: 08/17/2024 19:11 [facility] XR Chest 1 view-Mobile Chest radiograph Comparison: August 16. Findings: Endotracheal tube above liane. NG tube below diaphragm. No pneumothorax. Mild vascular congestion. Persistent subtle bilateral pulmonary opacities overall improving. No significant effusion. Heart size stable. Impression: No pneumothorax Report electronically signed by: Jamie Hays MD on August 17, 08:04 PM EDT Read by: JAMIE HAYS DO, MD Date: 08/17/2024 20:04 [facility] Comment on above: Order Comment: Paul lyons 0600 CK Totalon 08-16-2024 CK [Catalytic activity/Vol] 20 U/L Low 26-192 [facility] Comment on above: Performed By: #### C K ####[facility] [place] [address] US Aspiration Absc/Hemat/Bul /Cyston 08-16-2024 US Aspiration Absc/Hemat/Bul/Cyst ULTRASOUND GUIDED ABSCESS ASPIRATION: CLINICAL INDICATION: Right thigh collection. TECHNIQUE: Following discussion with the patient regarding risks, benefits and alternatives along with timeout to document the patient's name, site and nature of the procedure, the skin was sterilely prepared and local anesthesia was applied. Under real-time ultrasound guidance, a 5 Slovenian Yueh needle was advanced into the collection [...] FRANCO MAJANO MD, MD Date: 08/16/2024 16:13 [facility] US Guid Ndl Plcmt W/Imageon 08-16-2024 US Guid Ndl Plcmt W/Image ULTRASOUND GUIDED ABSCESS ASPIRATION: CLINICAL INDICATION: Right thigh collection. TECHNIQUE: Following discussion with the patient regarding risks, benefits and alternatives along with timeout to document the patient's name, site and nature of the procedure, the skin was sterilely prepared and local anesthesia was applied. Under real-time ultrasound guidance, a 5 [place] Yueh needle was advanced into the collection [...] FRANCO MAJANO MD, MD Date: 08/16/2024 16:13 [facility] XR Abdomen single AP view-KU Bon [...] CARLY GIBSON MD, MD Date: 08/16/2024 07:45 [facility] XR Chest 1 view-Mobileon XR Chest 1 view-Mobile CHEST CPT 07802 - RADIOLOGIC EXAMINATION, CHEST; SINGLE VIEW COMPARISON: [...] CARLY GIBSON MD, MD Date: 08/16/2024 07:44 [facility] XR Hip Right 2-3 viewson XR Hip Right 2-3 views 2 [facility] H[facility] COMPARISON: No comparison exams available at [...] JUNI WOOD MD, MD Date: 08/16/2024 12:[address] [facility] [address] Brain wo contraston 08-15 CT [...] MATILDE TURNER DO, MD Date: 08/15/2024 05:16 [facility] Comment on above: Order Comment: CONTR [...] DHIRAJ LAGOS DO, MD Date: 08/15/2024 05:49 [facility] XR Chest 1 view-Mobileon XR Chest 1 view-Mobile CHEST CPT 74146 - RADIOLOGIC EXAMINATION, CHEST; SINGLE VIEW COMPARISON: [...] of the thorax. Report electronically signed by: Calry [place] MD on August 15, 07:33 PM EDT Read by: CARLY GIBSON MD, MD Date: 08/15/2024 19:33 [facility] XR Chest 1 view-Mobile Chest. Single [...] DHIRAJ LAGOS DO, MD Date: 08/15/2024 05:[address] [facility] [address] Brain wo contraston 08-14 CT [...] KEV SANTANA MD, MD Date: 08/14/2024 20:14 [facility] Comment on above: Order Comment: TRAUM [...] KEV SANTANA MD, MD Date: 08/14/2024 21:01 [facility] Comment on above: Order Comment: TRAUM A Please call CT department to schedule [phone] CTA Head and Neck w/wo contr jenna 08-14-2024 CTA Head and Neck w/wo contrast CTA OF THE NECK (CAROTIDS) (CPT 91978) TECHNICAL: CT angiography of the neck/carotid vasculature [...] bilateral pulmonary opacities CTA OF THE HEAD/BRAIN ([place]) (CPT 92872) TECHNICAL: CT angiography of the neck/carotid vasculature [...] appear normal. POSTERIOR CEREBRAL ARTERY CIRCULATION: Visualized [employer] segments appear normal. VERTEBROBASILAR CIRCULATION stenosis or [...] KEV SANTANA MD, MD Date: 08/14/2024 20:25 [facility] Comment on above: Order Comment: CONTR AST PER RADIOLOGIST DISCRETION Please call CT department to schedule [phone] XR Chest 1 view-Mobileon XR Chest 1 [...] KEV SANTANA MD, MD Date: 08/14/2024 20:19 [facility] Basic metabolic 1998 panelon 07-17-2024 Anion gap [Moles/Vol] 21 mmol/L High 3 - 13 mmol/L [facility] Calcium [Mass/Vol] 8.5 mg/dL Low 8.8 - 10. 0 mg/dL [facility] Chloride [Moles/Vol] 96 mmol/L Low 98 - 10 7 mmol/L [facility] CO2 [Moles/Vol] 16 mmol/L Low 23 - 31 mmol/L [facility] Creatinine [Mass/Vol] 9.04 mg/dL High 0.57 - 1.11 mg/dL [facility] GFR/1.73 sq M.predicted (S/P/Bld) [Vol rate/Area] 4.2 mL/min Low - PINF [facility] Comment on above: Calculation based on the Chronic Kidney Disease Epidemiology Collaboration (CKD-EPI) equation refit without adjustment for race Glucose [Mass/Vol] 92 mg/dL 82 - 115 mg/dL [facility] Interpretation and review of laboratory results Abnormal [facility] Potassium [Moles/Vol] 5.6 mmol/L High 3.5 - 5.1 mmol/L [facility] Comment on above: Plasma potassium bhaskar ues may be up to 0.5 mmol/L lower than serum values. Sodium [Moles/Vol] 133 mmol/L Low 136 - 145 mmol/L [facility] Urea nitrogen [Mass/Vol] 84 mg/dL High 9 - 23 mg/dL [facility] CBC W Auto Differential pane l (Bld)on 07-17-2024 Basophils (Bld) [#/Vol] 0 10*3/uL 0.0 - 0.2 10*3/uL [facility] Basophils/100 WBC (Bld) 0.1 % 0.0 - 2.0 % [facility] Eosinophils (Bld) [#/Vol] 0 10*3/uL 0.0 - 0.5 10*3/uL [facility] Eosinophils/100 WBC (Bld) 0.1 % 0.0 - 6.0 % [facility] Erythrocyte distribution width (RBC) [Ratio] 16.3 % High 11.5 - 15.0 % [facility] Hematocrit (Bld) [Volume fraction] 34.9 % Low 35.0 - 47.0 % [facility] Hemoglobin (Bld) [Mass/Vol] 11.5 g/dL Low 11.7 - 16.0 g/dL [facility] Immature granulocytes (Bld) [#/Vol] 0.1 10*3/uL High NINF - 0.1 10*3/uL [facility] Immature granulocytes/100 WBC (Bld) 0.7 % 0.0 - 2.0 % [facility] Interpretation and review of laboratory results Abnormal [facility] Lymphocytes (Bld) [#/Vol] 0.9 10*3/uL Low 1.0 - 4.3 10*3/uL [facility] Lymphocytes/100 WBC (Bld) 12.2 % Low 15.0 - 45.0 % [facility] MCH (RBC) [Entitic mass] 31.8 pg 26.0 - 34.0 pg [facility] MCHC (RBC) [Mass/Vol] 33 % 30.5 - 36.0 % [facility] MCV (RBC) [Entitic vol] 96.4 fL 77.0 - 99.0 fL [facility] Monocytes (Bld) [#/Vol] 0.2 10*3/uL 0.0 - 0.9 10*3/uL [facility] Monocytes/100 WBC (Bld) 3.2 % Low 5.0 - 13.0 % [facility] Neutrophils (Bld) [#/Vol] 6.2 10*3/uL 1.8 - 7.5 10*3/uL [facility] Neutrophils/100 WBC (Bld) 83.7 % High 38.0 - 82.0 % [facility] Nucleated RBC/100 WBC (Bld) [Ratio] 0 % [facility] Platelet mean volume (Bld) [Entitic vol] 11.3 fL 9.0 - 12.7 fL [facility] Platelets (Bld) [#/Vol] 325 10*3/uL 140 - 440 10*3/uL [facility] RBC (Bld) [#/Vol] 3.62 10*6/uL Low 3.80 - 5.2 0 10*6/uL [facility] WBC (Bld) [#/Vol] 7.4 10*3/uL 3.6 - 10.7 10*3/uL [facility] - Chemistry and C hemistry - challengeon 07-17-2024 Magnesium [Mass/Vol] 2.3 mg/dL 1.6 - 2 .6 mg/dL [employer] Magnesium [Mass/Vol]on 07-17 Interpretation and review of laboratory results Normal [employer] Higher values can be expected in females during menses. Ofelia Feliz No Panel Informationon 07-17 2h Troponin HS (Serial 2nd Troponin) 82 ng/L High NINF - 14 ng/L [employer] Interpretation and review of laboratory results Abnormal [employer] Sinus rhythm Consider left ventricular hypertrophy Electronically Signed On 07-17-2024 20:17:37 EDT by Bryant Jameson CV Bryant Rooney MD - 07/17/2024 IMPRESSION: Sinus rhythm Consider left ventricular hypertrophy Electronically Signed On 07-17-2024 20:17:37 EDT by Bryant Jameson [employer] 2h Troponin HS (Serial 2nd Troponin) 33 ng/L [facility]/L [employer] Interpretation and review of laboratory results Abnormal Ofelia Feliz No Panel InformationOrdered By: Bryant Jameson on 07-17-2024 P Clayton 99 degrees [employer] Phone: NC Interval 119 ms [employer] Phone: [phone] QRS [place] 42 degrees [employer] Phone: QRSD Interval 82 ms [employer] Phone: QT Interval 391 ms [employer] Phone: QTC Interval 452 ms [employer] Phone: T Wave [place] 67 degrees [employer] Phone: [employer] Phone: Vital signsOrdered By: Bryant Jameson on 07-17-2024 Heart rate 80 /min bpm [employer] Phone: XR Chest Single viewon 07-17 No acute cardiopulmonary disease. Report Dictated on Electronically Signed By: Veronica Monsivais MD Electronically Signed Date/Time: 07/17/2024 3:00 PM EDT [facility] Patient Name: APOORVA GONZALEZ : 1950 [...] of the thoracic spine are noted. [facility] Veronica Monsivais MD - 07/17/2024 Patient [...] Electronically Signed Date/Time: 07/17/2024 3:00 PM EDT [facility] Radiology Study observation (narrative) [facility] XR Chest Single viewOrdered By: Veronica Monsivais on 07-17-2024 [facility] CBC W Auto Differential pane l (Bld)on 06-29-2024 Basophils (Bld) [#/Vol] 0.1 10*3/uL 0.0 - 0.2 10*3/uL [facility] Basophils/100 WBC (Bld) 0.9 % 0.0 - 2.0 % [facility] Eosinophils (Bld) [#/Vol] 0.2 10*3/uL 0.0 - 0.5 10*3/uL [facility] Eosinophils/100 WBC (Bld) 1.6 % 0.0 - 6.0 % [facility] Erythrocyte distribution width (RBC) [Ratio] 16.1 % High 11.5 - 15.0 % [facility] Hematocrit (Bld) [Volume fraction] 24 % Low 35.0 - 47.0 % [facility] Hemoglobin (Bld) [Mass/Vol] 8 g/dL Low 11.7 - 16.0 g/dL [facility] Immature granulocytes (Bld) [#/Vol] 0 10*3/uL NINF - 0.1 10*3/uL [facility] Immature granulocytes/100 WBC (Bld) 0.4 % 0.0 - 2.0 % [facility] Interpretation and review of laboratory results Abnormal [facility] Lymphocytes (Bld) [#/Vol] 1.6 10*3/uL 1.0 - 4.3 10*3/uL [facility] Lymphocytes/100 WBC (Bld) 16 % 15.0 - 45.0 % [facility] MCH (RBC) [Entitic mass] 31.5 pg 26.0 - 34.0 pg [facility] MCHC (RBC) [Mass/Vol] 33.3 % 30.5 - 36.0 % [facility] MCV (RBC) [Entitic vol] 94.5 fL 77.0 - 99.0 fL [facility] Monocytes (Bld) [#/Vol] 1 10*3/uL High 0.0 - 0.9 10*3/uL [facility] Monocytes/100 WBC (Bld) 9.5 % 5.0 - 13.0 % [facility] Neutrophils (Bld) [#/Vol] 7.3 10*3/uL 1.8 - 7.5 10*3/uL [facility] Neutrophils/100 WBC (Bld) 71.6 % 38.0 - 82.0 % [facility] Nucleated RBC/100 WBC (Bld) [Ratio] 0 % [facility] Platelet mean volume (Bld) [Entitic vol] 10.4 fL 9.0 - 12.7 fL [facility] Platelets (Bld) [#/Vol] 370 10*3/uL 140 - 440 10*3/uL [facility] RBC (Bld) [#/Vol] 2.54 10*6/uL Low 3.80 - 5.2 0 10*6/uL [facility] WBC (Bld) [#/Vol] 10.2 10*3/uL 3.6 - 10.7 10*3/uL [facility] CT Head WO contraston 2024 No acute intracranial abnormalities or significant change from the prior study. Generalized brain parenchymal volume loss and moderate chronic small vessel ischemic changes bilaterally. Report Dictated on Electronically Signed By: Andrea Gonzales MD Electronically Signed Date/Time: 06/29/2024 7:49 AM EDT [facility] Patient Name: APOORVA GONZALEZ : 1950 [...] included paranasal sinuses and orbits are normal. [facility] Andrea Gonzales M D - 06/29/2024 [...] Electronically Signed Date/Time: 06/29/2024 7:49 AM EDT [facility] Radiology Study observation (narrative) [facility] CT Head WO contrastOrdered B y: Andrea Gonzales on 06-29-2024 [facility] Work Phone: Comprehensive metabolic 1998 panelon 06-29-2024 Albumin [Mass/Vol] 3.4 g/dL 3.4 - 4.8 g/dL [facility] ALP [Catalytic activity/Vol] 93 U/L 40 - 150 U/L [facility] ALT [Catalytic activity/Vol] 8 U/L NINF - 30 U/L [facility] Anion gap [Moles/Vol] 20 mmol/L High 3 - 13 mmol/L [facility] AST [Catalytic activity/Vol] 23 U/L NINF - 34 U/L [facility] Bilirubin [Mass/Vol] 0.6 mg/dL NINF - 1.2 mg/dL [facility] Calcium [Mass/Vol] 8.4 mg/dL Low 8.8 - 10. 0 mg/dL [facility] Chloride [Moles/Vol] 93 mmol/L Low 98 - 10 7 mmol/L [facility] CO2 [Moles/Vol] 24 mmol/L 23 - 31 mmol/L [facility] Creatinine [Mass/Vol] 11.11 mg/dL High 0.57 - 1.11 mg/dL [facility] GFR/1.73 sq M.predicted (S/P/Bld) [Vol rate/Area] 3.3 mL/min Low - PINF [facility] Comment on above: Calculation based on the Chronic Kidney Disease Epidemiology Collaboration (CKD-EPI) equation refit without adjustment for race Glucose [Mass/Vol] 89 mg/dL 82 - 115 mg/dL [facility] Potassium [Moles/Vol] 6 mmol/L High 3.5 - 5.1 mmol/L [facility] Comment on above: Plasma potassium bhaskar ues may be up to 0.5 mmol/L lower than serum values. Protein [Mass/Vol] 7.1 g/dL 6.4 - 8.3 g/dL [facility] Sodium [Moles/Vol] 137 mmol/L 136 - 145 mmol/L [facility] Urea nitrogen [Mass/Vol] 96 mg/dL High 9 - 23 mg/dL [facility] Free T4 [Mass/Vol]on 025 Free T4 Dialysis [Mass/Vol] 1.4 ng/dL 0.70 - 1.48 ng/dL [facility] Laboratory - Chemistry and C hemistry - challengeon 06-29-2024 TSH Qn 0.95 m[IU]/L [facility] Magnesium [Mass/Vol] 2.9 mg/dL High 1.6 - 2 .6 mg/dL [facility] Ammonia (P) [Moles/Vol] 22 umol/L 18 - 72 umol/L [facility] Magnesium [Mass/Vol]on 06-29 Higher values can be expected in females during menses. [facility] No Panel Informationon 06-29 Interpretation and review of laboratory results Normal [facility] Interpretation and review of laboratory results Abnormal [facility] Interpretation and review of laboratory results Normal [facility] P Clayton 80 degrees [facility] NC Interval 124 ms [facility] QRS [place] 42 degrees [facility] QRSD Interval 108 ms [facility] QT Interval 422 ms [facility] QTC Interval 497 ms [facility] T Wave [place] 68 degrees [facility] Sinus rhythm Incomplete left bundle branch block Probable left ventricular hypertrophy Anterior Q waves, possibly due to LVH Electronically Signed On 06-29-2024 07:59:25 EDT by Veronica Abebe CV Veronica Sharma MD - 06/29/2024 IMPRESSION: Sinus rhythm Incomplete left bundle branch block Probable left ventricular hypertrophy Anterior Q waves, possibly due to LVH Electronically Signed On 06-29-2024 07:59:25 EDT by Veronica Abebe [facility] Vital signson 06-29-2024 Heart rate 83 /min bpm [facility] DBT Breast - bilateral scree ningon 06-09-2024 [...] MD Electronically Signed Date/Time: 06/09/2024 2:24 PM [facility] Patient Name: APOORVA GONZALEZ : 1950 Exam Date/Time: 06/09/2024 13:19 Procedure: BI MAMMOGRAM SCREENING TOMOSYNTHESIS BILATERAL Ordering Provider: SPAIN ABIGAIL Reason For Exam: This exam was performed at [facility] at [address] [facility] [address] PATIENT CANCER HISTORY: No Personal History of Cancer FAMILY CANCER HISTORY: Cousin Breast Cancer age 32 Brother Prostate Cancer age 69 Maternal Aunt Stomach Cancer age 70 Image views: 2D Bilateral CC and MLO views were acquired. 3D Bilateral CC and MLO views were acquired. Images were reviewed with CAD. Markings on images: BB's = Nipples; skin lesions Open [place] = Palpable Line = Scar COMPARISON: 01/12/2023 and 11/28/2020 TISSUE DENSITY: BIRADS C - The breasts are heterogeneously dense, which may obscure small masses. FINDINGS: No suspicious masses, architectural distortions or suspiciously clustered microcalcifications are identified. There is no evidence of skin thickening or nipple retraction. There are no significant changes when compared with prior studies. [facility] [employer] [facility] Nalini Márquez MD - 06/09/2024 Patient Name: APOORVA [facility]Z [facility] 1950 [id number] Exam Date/Time: 06/09/2024 13:19 Procedure: BI MAMMOGRAM SCREENING TOMOSYNTHESIS BILATERAL Ordering Provider: SPAIN ABIGAIL Reason For Exam: This exam was performed at [facility] at [address] [facility] [address] PATIENT CANCER HISTORY: No Personal History of Cancer FAMILY CANCER HISTORY: Cousin Breast Cancer age 32 Brother Prostate Cancer age 69 Maternal Aunt Stomach Cancer age 70 Image views: 2D Bilateral CC and MLO views were acquired. 3D Bilateral CC and MLO views were acquired. Images were reviewed with CAD. Markings on images: BB's = Nipples; skin lesions Open [place] = Palpable Line = Scar COMPARISON: 01/12/2023 [...] Electronically Signed Date/Time: 06/09/2024 2:24 PM EST [facility] Radiology Study observation (narrative) [facility] DBT Breast - bilateral scree ningOrdered By: Nalini Márquez on 06-09-2024 [facility] Work Phone: Basic metabolic 1998 panelOr dered By: Yonatan Cornell on 03-03-2024 Anion gap [Moles/Vol] 12 mmol/L 3 - 13 mmol/L [facility] Calcium [Mass/Vol] 8.3 mg/dL Low 8.4 - 10. 4 mg/dL [facility] Chloride [Moles/Vol] 98 mmol/L 98 - 10 7 mmol/L [facility] CO2 [Moles/Vol] 28 mmol/L 22 - 30 mmol/L [facility] Creatinine [Mass/Vol] 8.03 mg/dL High 0.52 - 1.04 mg/dL [facility] GFR/1.73 sq M.predicted (S/P/Bld) [Vol rate/Area] 4.9 mL/min Low - PINF [facility] Comment on above: Calculation based on the Chronic Kidney Disease Epidemiology Collaboration (CKD-EPI) equation refit without adjustment for race Glucose [Mass/Vol] 91 mg/dL 70 - 100 mg/dL [facility] Interpretation and review of laboratory results Abnormal [facility] Potassium [Moles/Vol] 5 mmol/L 3.5 - 5.1 mmol/L [facility] Sodium [Moles/Vol] 138 mmol/L 135 - 145 mmol/L [facility] Urea nitrogen [Mass/Vol] 42 mg/dL High 7 - 17 mg/dL [facility] CBC W Auto Differential pane l (Bld)on 03-03-2024 Basophils (Bld) [#/Vol] 0.1 10*3/uL 0.0 - 0.2 10*3/uL [facility] Basophils/100 WBC (Bld) 1.1 % 0.0 - 2.0 % [facility] Eosinophils (Bld) [#/Vol] 0.3 10*3/uL 0.0 - 0.5 10*3/uL [facility] Eosinophils/100 WBC (Bld) 4 % 0.0 - 6.0 % [facility] Erythrocyte distribution width (RBC) [Ratio] 16.8 % High 11.5 - 15.0 % [facility] Hematocrit (Bld) [Volume fraction] 32.8 % Low 35.0 - 47.0 % [facility] Hemoglobin (Bld) [Mass/Vol] 10.2 g/dL Low 11.7 - 16.0 g/dL [facility] Immature granulocytes (Bld) [#/Vol] 0 10*3/uL NINF - 0.1 10*3/uL [facility] Immature granulocytes/100 WBC (Bld) 0.4 % 0.0 - 2.0 % [facility] Interpretation and review of laboratory results Abnormal [facility] Lymphocytes (Bld) [#/Vol] 1.9 10*3/uL 1.0 - 4.3 10*3/uL [facility] Lymphocytes/100 WBC (Bld) 24.8 % 15.0 - 45.0 % [facility] MCH (RBC) [Entitic mass] 30.9 pg 26.0 - 34.0 pg [facility] MCHC (RBC) [Mass/Vol] 31.1 % 30.5 - 36.0 % [facility] MCV (RBC) [Entitic vol] 99.4 fL High 77.0 - 99.0 fL [facility] Monocytes (Bld) [#/Vol] 0.6 10*3/uL 0.0 - 0.9 10*3/uL [facility] Monocytes/100 WBC (Bld) 7.8 % 5.0 - 13.0 % [facility] Neutrophils (Bld) [#/Vol] 4.7 10*3/uL 1.8 - 7.5 10*3/uL [facility] Neutrophils/100 WBC (Bld) 61.9 % 38.0 - 82.0 % [facility] Nucleated RBC/100 WBC (Bld) [Ratio] 0 % [facility] Platelet mean volume (Bld) [Entitic vol] 10.4 fL 9.0 - 12.7 fL [facility] Platelets (Bld) [#/Vol] 409 10*3/uL 140 - 440 10*3/uL [facility] RBC (Bld) [#/Vol] 3.3 10*6/uL Low 3.80 - 5.2 0 10*6/uL [facility] WBC (Bld) [#/Vol] 7.5 10*3/uL 3.6 - 10.7 10*3/uL [facility] Laboratory - Chemistry and C hemistry - challengeon 03-03-2024 Glucose [Mass/Vol] 74 mg/dL 70 - 100 mg/dL [facility] Glucose [Mass/Vol] 90 mg/dL 70 - 100 mg/dL [facility] No Panel Informationon 03-03 Interpretation and review of laboratory results Normal [facility] Performed by: [facility], [address] [place] [id number] CLIA ID: [id number] [facility] Interpretation and review of laboratory results Normal [facility] Performed by: [facility], [address] [place] [id number] CLIA ID: [id number] [facility] Basic metabolic 1998 panelOr dered By: Yogi Stanley on 03-02-2024 Anion gap [Moles/Vol] 20 mmol/L High 3 - 13 mmol/L [facility] Calcium [Mass/Vol] 8.8 mg/dL 8.4 - 10. 4 mg/dL [facility] Chloride [Moles/Vol] 97 mmol/L Low 98 - 10 7 mmol/L [facility] CO2 [Moles/Vol] 20 mmol/L Low 22 - 30 mmol/L [facility] Creatinine [Mass/Vol] 11.21 mg/dL High 0.52 - 1.04 mg/dL [facility] GFR/1.73 sq M.predicted (S/P/Bld) [Vol rate/Area] 3.3 mL/min Low - PINF [facility] Comment on above: Calculation based on the Chronic Kidney Disease Epidemiology Collaboration (CKD-EPI) equation refit without adjustment for race Glucose [Mass/Vol] 110 mg/dL High 70 - 100 mg/dL [facility] Interpretation and review of laboratory results Abnormal [facility] Potassium [Moles/Vol] 6.4 mmol/L Critically high 3.5 - 5.1 mmol/L [facility] Sodium [Moles/Vol] 137 mmol/L 135 - 145 mmol/L [facility] Urea nitrogen [Mass/Vol] 58 mg/dL High 7 - 17 mg/dL [facility] CBC W Auto Differential pane l (Bld)on 03-02-2024 Basophils (Bld) [#/Vol] 0.1 10*3/uL 0.0 - 0.2 10*3/uL [facility] Basophils/100 WBC (Bld) 1.1 % 0.0 - 2.0 % [facility] Eosinophils (Bld) [#/Vol] 0.2 10*3/uL 0.0 - 0.5 10*3/uL [facility] Eosinophils/100 WBC (Bld) 2.1 % 0.0 - 6.0 % [facility] Erythrocyte distribution width (RBC) [Ratio] 16.6 % High 11.5 - 15.0 % [facility] Hematocrit (Bld) [Volume fraction] 32.3 % Low 35.0 - 47.0 % [facility] Hemoglobin (Bld) [Mass/Vol] 10.2 g/dL Low 11.7 - 16.0 g/dL [facility] Immature granulocytes (Bld) [#/Vol] 0 10*3/uL NINF - 0.1 10*3/uL [facility] Immature granulocytes/100 WBC (Bld) 0.4 % 0.0 - 2.0 % [facility] Lymphocytes (Bld) [#/Vol] 1.2 10*3/uL 1.0 - 4.3 10*3/uL [facility] Lymphocytes/100 WBC (Bld) 14.4 % Low 15.0 - 45.0 % [facility] MCH (RBC) [Entitic mass] 30.6 pg 26.0 - 34.0 pg [facility] MCHC (RBC) [Mass/Vol] 31.6 % 30.5 - 36.0 % [facility] MCV (RBC) [Entitic vol] 97 fL 77.0 - 99.0 fL [facility] Monocytes (Bld) [#/Vol] 0.5 10*3/uL 0.0 - 0.9 10*3/uL [facility] Monocytes/100 WBC (Bld) 5.4 % 5.0 - 13.0 % [facility] Neutrophils (Bld) [#/Vol] 6.5 10*3/uL 1.8 - 7.5 10*3/uL [facility] Neutrophils/100 WBC (Bld) 76.6 % 38.0 - 82.0 % [facility] Nucleated RBC/100 WBC (Bld) [Ratio] 0 % [facility] Platelet mean volume (Bld) [Entitic vol] 10.3 fL 9.0 - 12.7 fL [facility] Platelets (Bld) [#/Vol] 406 10*3/uL 140 - 440 10*3/uL [facility] RBC (Bld) [#/Vol] 3.33 10*6/uL Low 3.80 - 5.2 0 10*6/uL [facility] WBC (Bld) [#/Vol] 8.5 10*3/uL 3.6 - 10.7 10*3/uL [facility] Laboratory - Chemistry and C hemistry - challengeon 03-02-2024 Glucose [Mass/Vol] 124 mg/dL High 70 - 100 mg/dL [facility] Glucose [Mass/Vol] 126 mg/dL High 70 - 100 mg/dL [facility] Glucose [Mass/Vol] 77 mg/dL 70 - 100 mg/dL [facility] Troponin I.cardiac [Mass/Vol] 0.029 ng/mL NINF - 0.034 ng/mL [facility] Troponin I.cardiac [Mass/Vol] 0.029 ng/mL NINF - 0.034 ng/mL [facility] Glucose [Mass/Vol] 88 mg/dL 70 - 100 mg/dL [facility] Glucose [Mass/Vol] 57 mg/dL Low 70 - 100 mg/dL [facility] Glucose [Mass/Vol] 239 mg/dL High 70 - 100 mg/dL [facility] Glucose [Mass/Vol] 88 mg/dL 70 - 100 mg/dL [facility] Troponin I.cardiac [Mass/Vol] 0.028 ng/mL NINF - 0.034 ng/mL [facility] Laboratory - Chemistry and C hemistry - challengeOrdered By: Christiano Weinberg on 03-02-2024 Base excess Calc (BldV) [Moles/Vol] -0.1000 mmol/L -3.0 - 3.0 mmol/L [facility] CO2 (BldV) [Partial pressure] 36 mm[Hg] Low [facility] CO2 [Moles/Vol] 24.8 mmol/L 24.0 - 28.0 mmol/L [facility] HCO3 (Bld) [Moles/Vol] 23.7 mmol/L 23.0 - 27.0 mmol/L [facility] Oxygen (BldV) [Partial pressure] 45.7 mm[Hg] mm Hg [facility] pH (BldV) 7.437 [pH] High 7.330 - 7.430 [facility] Laboratory - Hematology and Cell countsOrdered By: Christiano Weinberg on 03-02-2024 Hemoglobin (Bld) [Mass/Vol] 12.1 g/dL Screen only [facility] Natriuretic peptide B [Mass/ Vol]on 03-02-2024 Interpretation and review of laboratory results Abnormal [facility] Natriuretic peptide B (Bld) [Mass/Vol] 11713 pg/mL High NINF - 125 pg/mL [facility] No Panel Informationon 03-02 Interpretation and review of laboratory results Abnormal [facility] Performed by: [facility], [address] [place] [id number] CLIA ID: [id number] [facility] Interpretation and review of laboratory results Abnormal [facility] Performed by: [facility], [address] [place] [id number] CLIA ID: [id number] [facility] Interpretation and review of laboratory results Normal [facility] Performed by: [facility], [address] [place] [id number] CLIA ID: [id number] [facility] Interpretation and review of laboratory results Normal [facility] Performed by: [facility], [address] [place] [address] [place] [address] CLIA ID: [id number] [facility] Interpretation and review of laboratory results Abnormal [facility] Performed by: [facility], [address] [place] [id number] CLIA ID: [id number] [facility] Interpretation and review of laboratory results Abnormal [facility] Performed by: [facility], [address] [place] [address] CLIA ID: [id number] [facility] P [place] 65 degrees [facility] NC Interval 129 ms [facility] QRS [place] 3 degrees [facility] QRSD Interval 91 ms [facility] QT Interval 384 ms [facility] QTC Interval 464 ms [facility] T Wave [place] 58 degrees [facility] Sinus rhythm Minimal ST elevation, anterior leads Normal axis Electronically Signed On 03-02-2024 07:17:20 EST by Marcus Sutherland DO - 03/02/2024 IMPRESSION: Sinus rhythm Minimal ST elevation, anterior leads Normal axis Electronically Signed On 03-02-2024 07:17:20 EST by Marcus Ragland [facility] P Clayton 58 degrees [facility] NC Interval 123 ms [facility] QRS [place] 0 degrees [facility] QRSD Interval 96 ms [facility] QT Interval 404 ms [facility] QTC Interval 483 ms [facility] T Wave [place] 51 degrees [facility] Sinus rhythm Probable left atrial enlargement Normal axis Electronically Signed On 03-02-2024 07:16:24 EST by Marcus Suthreland DO - 03/02/2024 IMPRESSION: Sinus rhythm Probable left atrial enlargement Normal axis Electronically Signed On 03-02-2024 07:16:24 EST by [facility] Interpretation and review of laboratory results Normal [facility] Performed by: [facility], [address] [place] [address] CLIA ID: [id number] [facility] Interpretation and review of laboratory results Abnormal [facility] No Panel InformationOrdered By: Christiano Weinberg on 03-02-2024 Source Of Oxygen 2L [facility] Assessment of oxygenation is best done with an arterial blood gas determination. Reference ranges for pO2, bicarbonate, and base excess are for mixed venous blood. Specimens drawn from a peripheral vein will often have higher values. [facility] Troponin I.cardiac [Mass/Vol ]on 03-02-2024 Interpretation and review of laboratory results Normal [facility] Patients with high levels of Biotin oral intake (ie >5 mg/day) may have falsely decreased Troponin levels. [facility] Interpretation and review of laboratory results Normal [facility] Patients with high levels of Biotin oral intake (ie >5 mg/day) may have falsely decreased Troponin levels. [facility] Interpretation and review of laboratory results Normal [facility] Patients with high levels of Biotin oral intake (ie >5 mg/day) may have falsely decreased Troponin levels. [facility] Vital signson 03-02-2024 Heart rate 88 /min bpm [facility] Heart rate 86 /min bpm [facility] Vital signsOrdered By: Christiano Weinberg on 03-02-2024 Oxygen saturation in Venous blood 73.5 % [facility] XR Chest Single viewon 03-02 1. Worsening bibasil ar infiltrates and effusions. 2. Prominence of the central pulmonary vasculature consistent with moderate to severe congestive heart failure/fluid overload. Report Dictated on Electronically Signed By: Honorio Henson MD Electronically Signed Date/Time: 03/02/2024 4:43 AM EST [facility] [employer] Patient Name: APOORVA GONZALEZ : 1950 [...] of the interstitium and central pulmonary vasculature. [facility] Honorio Henson MD - 03/02/2024 Patient [...] Electronically Signed Date/Time: 03/02/2024 4:43 AM EST [facility] Radiology Study observation (narrative) [facility] XR Chest Single viewOrdered By: Honorio Henson on 03-02-2024 [facility] Work Phone: CBC W Auto Differential pane l (Bld)Ordered By: Andre Ervin on 02-20-2024 Basophils (Bld) [#/Vol] 0.1 10*3/uL 0.0 - 0.2 10*3/uL [facility] Basophils/100 WBC (Bld) 1.1 % 0.0 - 2.0 % [facility] Eosinophils (Bld) [#/Vol] 0.5 10*3/uL 0.0 - 0.5 10*3/uL [facility] Eosinophils/100 WBC (Bld) 4.6 % 0.0 - 6.0 % [facility] Erythrocyte distribution width (RBC) [Ratio] 17.5 % High 11.5 - 15.0 % [facility] Hematocrit (Bld) [Volume fraction] 27.4 % Low 35.0 - 47.0 % [facility] Hemoglobin (Bld) [Mass/Vol] 8.4 g/dL Low 11.7 - 16.0 g/dL [facility] Immature granulocytes (Bld) [#/Vol] 0.1 10*3/uL High NINF - 0.1 10*3/uL [facility] Immature granulocytes/100 WBC (Bld) 0.4 % 0.0 - 2.0 % [facility] Interpretation and review of laboratory results Abnormal [facility] Lymphocytes (Bld) [#/Vol] 2.5 10*3/uL 1.0 - 4.3 10*3/uL [facility] Lymphocytes/100 WBC (Bld) 22.7 % 15.0 - 45.0 % [facility] MCH (RBC) [Entitic mass] 30.8 pg 26.0 - 34.0 pg [facility] MCHC (RBC) [Mass/Vol] 30.7 % 30.5 - 36.0 % [facility] MCV (RBC) [Entitic vol] 100.4 fL High 77.0 - 99.0 fL [facility] Monocytes (Bld) [#/Vol] 0.9 10*3/uL 0.0 - 0.9 10*3/uL [facility] Monocytes/100 WBC (Bld) 8 % 5.0 - 13.0 % [facility] Neutrophils (Bld) [#/Vol] 7.1 10*3/uL 1.8 - 7.5 10*3/uL [facility] Neutrophils/100 WBC (Bld) 63.2 % 38.0 - 82.0 % [facility] Nucleated RBC/100 WBC (Bld) [Ratio] 0 % [facility] Platelet mean volume (Bld) [Entitic vol] 10.1 fL 9.0 - 12.7 fL [facility] Platelets (Bld) [#/Vol] 405 10*3/uL 140 - 440 10*3/uL [facility] RBC (Bld) [#/Vol] 2.73 10*6/uL Low 3.80 - 5.2 0 10*6/uL [facility] WBC (Bld) [#/Vol] 11.2 10*3/uL High 3.6 - 10.7 10*3/uL [facility] Comprehensive metabolic 1998 panelOrdered By: Gracie Wooten on 02-20-2024 Albumin [Mass/Vol] 3.4 g/dL Low 3.5 - 5.0 g/dL [facility] ALP [Catalytic activity/Vol] 136 U/L High 38 - 126 U/L [facility] ALT [Catalytic activity/Vol] 35 U/L High 0 - 34 U/L [facility] Anion gap [Moles/Vol] 11 mmol/L 3 - 13 mmol/L [facility] AST [Catalytic activity/Vol] 41 U/L 15 - 46 U/L [facility] Bilirubin [Mass/Vol] 0.7 mg/dL 0.2 - 1 .3 mg/dL [facility] Calcium [Mass/Vol] 8.2 mg/dL Low 8.4 - 10. 4 mg/dL [facility] Chloride [Moles/Vol] 97 mmol/L Low 98 - 10 7 mmol/L [facility] CO2 [Moles/Vol] 27 mmol/L 22 - 30 mmol/L [facility] Creatinine [Mass/Vol] 4.37 mg/dL High 0.52 - 1.04 mg/dL [facility] GFR/1.73 sq M.predicted (S/P/Bld) [Vol rate/Area] 10.2 mL/min Low - PINF [facility] Comment on above: Calculation based on the Chronic Kidney Disease Epidemiology Collaboration (CKD-EPI) equation refit without adjustment for race Glucose [Mass/Vol] 91 mg/dL 70 - 100 mg/dL [facility] Interpretation and review of laboratory results Abnormal [facility] Potassium [Moles/Vol] 3.8 mmol/L 3.5 - 5.1 mmol/L [facility] Protein [Mass/Vol] 6.2 g/dL Low 6.3 - 8.2 g/dL [facility] Sodium [Moles/Vol] 135 mmol/L 135 - 145 mmol/L [facility] Urea nitrogen [Mass/Vol] 29 mg/dL High 7 - 17 mg/dL [facility] Laboratory - Chemistry and C hemistry - challengeon 02-20-2024 Procalcitonin [Mass/Vol] 0.56 ng/mL High 0.00 - 0.09 ng/mL [facility] Procalcitonin [Mass/Vol]on 04-21-2023 Interpretation and review of laboratory results Abnormal [facility] PCT <0.50 = Low risk of severe sepsis and/or septic shock. PCT >2.00 = High risk of severe sepsis and/or septic shock. [facility] CBC W Auto Differential pane l (Bld)Ordered By: Beatriz Morales on 02-19-2024 Basophils (Bld) [#/Vol] 0.2 10*3/uL 0.0 - 0.2 10*3/uL [facility] Basophils/100 WBC (Bld) 1.3 % 0.0 - 2.0 % [facility] Eosinophils (Bld) [#/Vol] 0.6 10*3/uL High 0.0 - 0.5 10*3/uL [facility] Eosinophils/100 WBC (Bld) 4.9 % 0.0 - 6.0 % [facility] Erythrocyte distribution width (RBC) [Ratio] 18 % High 11.5 - 15.0 % [facility] Hematocrit (Bld) [Volume fraction] 30.6 % Low 35.0 - 47.0 % [facility] Hemoglobin (Bld) [Mass/Vol] 9.2 g/dL Low 11.7 - 16.0 g/dL [facility] Immature granulocytes (Bld) [#/Vol] 0.1 10*3/uL High NINF - 0.1 10*3/uL [facility] Immature granulocytes/100 WBC (Bld) 0.4 % 0.0 - 2.0 % [facility] Interpretation and review of laboratory results Abnormal [facility] Lymphocytes (Bld) [#/Vol] 2 10*3/uL 1.0 - 4.3 10*3/uL [facility] Lymphocytes/100 WBC (Bld) 17.1 % 15.0 - 45.0 % [facility] MCH (RBC) [Entitic mass] 30.7 pg 26.0 - 34.0 pg [facility] MCHC (RBC) [Mass/Vol] 30.1 % Low 30.5 - 36.0 % [facility] MCV (RBC) [Entitic vol] 102 fL High 77.0 - 99.0 fL [facility] Monocytes (Bld) [#/Vol] 0.7 10*3/uL 0.0 - 0.9 10*3/uL [facility] Monocytes/100 WBC (Bld) 6.3 % 5.0 - 13.0 % [facility] Neutrophils (Bld) [#/Vol] 8 10*3/uL High 1.8 - 7.5 10*3/uL [facility] Neutrophils/100 WBC (Bld) 70 % 38.0 - 82.0 % [facility] Nucleated RBC/100 WBC (Bld) [Ratio] 0.2 % [facility] Platelet mean volume (Bld) [Entitic vol] 10.4 fL 9.0 - 12.7 fL [facility] Platelets (Bld) [#/Vol] 472 10*3/uL High 140 - 440 10*3/uL [facility] RBC (Bld) [#/Vol] 3 10*6/uL Low 3.80 - 5.2 0 10*6/uL [facility] WBC (Bld) [#/Vol] 11.5 10*3/uL High 3.6 - 10.7 10*3/uL [facility] Comprehensive metabolic 1998 panelOrdered By: Cathy Salinas on 02-19-2024 Albumin [Mass/Vol] 3.7 g/dL 3.5 - 5.0 g/dL [facility] ALP [Catalytic activity/Vol] 122 U/L 38 - 126 U/L [facility] ALT [Catalytic activity/Vol] 42 U/L High 0 - 34 U/L [facility] Anion gap [Moles/Vol] 11 mmol/L 3 - 13 mmol/L [facility] AST [Catalytic activity/Vol] 76 U/L High 15 - 46 U/L [facility] [facility] Bilirubin [Mass/Vol] 1.1 mg/dL 0.2 - 1 .3 mg/dL [facility] Calcium [Mass/Vol] 8.5 mg/dL 8.4 - 10. 4 mg/dL [facility] Chloride [Moles/Vol] 95 mmol/L Low 98 - 10 7 mmol/L [facility] CO2 [Moles/Vol] 28 mmol/L 22 - 30 mmol/L [facility] Creatinine [Mass/Vol] 3.12 mg/dL High 0.52 - 1.04 mg/dL [facility] GFR/1.73 sq M.predicted (S/P/Bld) [Vol rate/Area] 15.2 mL/min Low - PINF [facility] Comment on above: Calculation based on the Chronic Kidney Disease Epidemiology Collaboration (CKD-EPI) equation refit without adjustment for race Glucose [Mass/Vol] 104 mg/dL High 70 - 100 mg/dL [facility] Interpretation and review of laboratory results Abnormal [facility] Potassium [Moles/Vol] 4.1 mmol/L 3.5 - 5.1 mmol/L [facility] Protein [Mass/Vol] 6.9 g/dL 6.3 - 8.2 g/dL [facility] Sodium [Moles/Vol] 134 mmol/L Low 135 - 145 mmol/L [facility] Urea nitrogen [Mass/Vol] 18 mg/dL High 7 - 17 mg/dL [facility] AST, Potassium, Alkaline Phosphatase-Slightly Hemolyzed. Interpret with caution. [facility] Comprehensive metabolic 1998 panelon 02-19-2024 Albumin [Mass/Vol] 4 g/dL 3.5 - 5.0 g/dL [facility] ALP [Catalytic activity/Vol] 131 U/L High 38 - 126 U/L [facility] ALT [Catalytic activity/Vol] 50 U/L High 0 - 34 U/L [facility] Anion gap [Moles/Vol] 18 mmol/L High 3 - 13 mmol/L [facility] AST [Catalytic activity/Vol] 105 U/L High 15 - 46 U/L [facility] Bilirubin [Mass/Vol] 1.1 mg/dL 0.2 - 1 .3 mg/dL [facility] Calcium [Mass/Vol] 8.2 mg/dL Low 8.4 - 10. 4 mg/dL [facility] Chloride [Moles/Vol] 95 mmol/L Low 98 - 10 7 mmol/L [facility] CO2 [Moles/Vol] 21 mmol/L Low 22 - 30 mmol/L [facility] Creatinine [Mass/Vol] 6.67 mg/dL High 0.52 - 1.04 mg/dL [facility] GFR/1.73 sq M.predicted (S/P/Bld) [Vol rate/Area] 6.1 mL/min Low - PINF [facility] Comment on above: Calculation based on the Chronic Kidney Disease Epidemiology Collaboration (CKD-EPI) equation refit without adjustment for race Glucose [Mass/Vol] 193 mg/dL High 70 - 100 mg/dL [facility] Interpretation and review of laboratory results Abnormal [facility] Potassium [Moles/Vol] 5.2 mmol/L High 3.5 - 5.1 mmol/L [facility] Protein [Mass/Vol] 7.3 g/dL 6.3 - 8.2 g/dL [facility] Sodium [Moles/Vol] 134 mmol/L Low 135 - 145 mmol/L [facility] Urea nitrogen [Mass/Vol] 44 mg/dL High 7 - 17 mg/dL [facility] Slightly Hemolyzed. Interpret Potassium, Total Protein, Albumin, Alkaline Phosphatase, and AST with caution. [facility] Laboratory - Chemistry and C hemistry - challengeon 02-19-2024 Troponin I.cardiac [Mass/Vol] 0.033 ng/mL [facility] - 0.034 ng/mL [facility] Troponin I.cardiac [Mass/Vol] 0.042 ng/mL High [facility] - 0.034 ng/mL [facility] Procalcitonin [Mass/Vol] 0.48 ng/mL High 0.00 - 0.09 ng/mL [facility] Lactate [Moles/Vol] 1.3 mmol/L 0.7 - 2. 0 mmol/L [facility] Troponin I.cardiac [Mass/Vol] 0.034 ng/mL High [facility] - 0.034 ng/mL [facility] Base excess Calc (BldV) [Moles/Vol] 4.4 mmol/L High -3.0 - 3.0 mmol/L [facility] CO2 (BldV) [Partial pressure] 44.1 mm[Hg] [facility] CO2 [Moles/Vol] 30.4 mmol/L High 24.0 - 28.0 mmol/L [facility] HCO3 (Bld) [Moles/Vol] 29.1 mmol/L High 23.0 - 27.0 mmol/L [facility] Oxygen (BldV) [Partial pressure] 41.7 mm[Hg] mm Hg [facility] pH (BldV) 7.437 [pH] High 7.330 - 7.430 [facility] Troponin I.cardiac [Mass/Vol] 0.027 ng/mL NINF - 0.034 ng/mL [facility] Lactate [Moles/Vol] 3.3 mmol/L High 0.7 - 2. 0 mmol/L [facility] Laboratory - Chemistry and C hemistry - challengeOrdered By: Christiano Weinberg on 02-19-2024 Base excess Calc (BldV) [Moles/Vol] 3.3 mmol/L High -3.0 - 3.0 mmol/L [facility] CO2 (BldV) [Partial pressure] 62.2 mm[Hg] High [facility] CO2 [Moles/Vol] 32.3 mmol/L High 24.0 - 28.0 mmol/L [facility] HCO3 (Bld) [Moles/Vol] 30.4 mmol/L High 23.0 - 27.0 mmol/L [facility] Oxygen (BldV) [Partial pressure] 19.6 mm[Hg] mm Hg [facility] pH (BldV) 7.307 [pH] Low 7.330 - 7.430 [facility] Laboratory - Hematology and Cell countson 02-19-2024 Hemoglobin (Bld) [Mass/Vol] 8.8 g/dL Screen only [facility] Laboratory - Hematology and Cell countsOrdered By: Christiano Weinberg on 02-19-2024 Hemoglobin (Bld) [Mass/Vol] 8.7 g/dL Screen only [facility] Natriuretic peptide B [Mass/ Vol]Ordered By: Handy Jarvis on 02-19-2024 Interpretation and review of laboratory results Abnormal [facility] Natriuretic peptide B (Bld) [Mass/Vol] 88531 pg/mL High NINF - 125 pg/mL [facility] No Panel InformationOrdered By: Amol Perdue on 02-19-2024 Interpretation and review of laboratory results Normal [facility] Legionella pneumophila Ag Not detected Not Detected [facility] Streptococcus pneumoniae Ag Not detected Not Detected [facility] Methodology: Lateral flow enzyme immunoassay This assay is approved for detection of antigens to Streptococcus pneumoniae and Legionella pneumophila serogroup 1; however, other L. pneumophila serogroups may also be detected. [facility] No Panel Informationon 02-18 Interpretation and review of laboratory results Normal [facility] Interpretation and review of laboratory results Abnormal [facility] Source Of Oxygen [facility] Comment on above: 6L Assessment of oxygenation is best done with an arterial blood gas determination. Reference ranges for pO2, bicarbonate, and base excess are for mixed venous blood. Specimens drawn from a peripheral vein will often have higher values. [facility] Interpretation and review of laboratory results Abnormal [facility] P [place] 67 degrees [facility] NC Interval 133 ms [facility] QRS [place] 3 degrees [facility] QRSD Interval 82 ms [facility] QT Interval 397 ms [facility] QTC Interval 465 ms [facility] T Wave [place] 48 degrees [facility] Sinus rhythm Probable left ventricular hypertrophy Anterior Q waves Electronically Signed On 02-19-2024 04:31:07 EST by Brown Kaur CV Brown Bo DO - 02/19/2024 IMPRESSION: Sinus rhythm Probable left ventricular hypertrophy Anterior Q waves Electronically Signed On 02-19-2024 04:31:07 EST by Brown Kaur [facility] No Panel InformationOrdered By: Christiano Weinberg on 02-19-2024 Interpretation and review of laboratory results Abnormal [facility] Source Of Oxygen [facility] Comment on above: 100% Assessment of oxygenation is best done with an arterial blood gas determination. Reference ranges for pO2, bicarbonate, and base excess are for mixed venous blood. Specimens drawn from a peripheral vein will often have higher values. [facility] Procalcitonin [Mass/Vol]on 04-20-2023 Interpretation and review of laboratory results Abnormal [facility] PCT <0.50 = Low risk of severe sepsis and/or septic shock. PCT >2.00 = High risk of severe sepsis and/or septic shock. [facility] Respiratory pathogens DNA an d RNA panel CHIQUIS+non-probe (Nph)on 02-19-2024 Adenovirus Not detected Not Detected [facility] B. pertussis DNA CHIQUIS+probe Ql (Unsp spec) Not detected Not Detected [facility] Bordetella parapertussis Not detected Not Detected [facility] Chlamydia pneumoniae Not detected Not Detected [facility] Coronavirus 229E Not detected Not Detected [facility] Coronavirus HKU1 Not detected Not Detected [facility] Coronavirus NL63 Not detected Not Detected [facility] Coronavirus OC43 Not detected Not Detected [facility] FLUAV RNA CHIQUIS+non-probe Ql (Nph) Not detected Not Detected [facility] FLUBV RNA CHIQUIS+non-probe Ql (Nph) Not detected Not Detected [facility] Human Metapneumovirus Not detected Not Detected [facility] Human Rhinovirus/Enterovirus Not detected Not Detected [facility] Interpretation and review of laboratory results Normal [facility] Mycoplasma pneumoniae Not detected Not Detected [facility] Parainfluenza 1 Not detected Not Detected [facility] Parainfluenza 2 Not detected Not Detected [facility] Parainfluenza 3 Not detected Not Detected [facility] Parainfluenza 4 Not detected Not Detected [facility] Respiratory Syncytial Virus Not detected Not Detected [facility] SARS-CoV-2 (COVID-19) RNA CHIQUIS+non-probe Ql (Nph) Not detected Not Detected [facility] Methodology: Multipl ex PCR [facility] Troponin I.cardiac [Mass/Vol ]on 02-19-2024 Interpretation and review of laboratory results Normal [facility] Patients with high levels of Biotin oral intake (ie >5 mg/day) may have falsely decreased Troponin levels. [facility] Interpretation and review of laboratory results Abnormal [facility] Patients with high levels of Biotin oral intake (ie >5 mg/day) may have falsely decreased Troponin levels. [facility] Interpretation and review of laboratory results Abnormal [facility] Patients with high levels of Biotin oral intake (ie >5 mg/day) may have falsely decreased Troponin levels. [facility] Interpretation and review of laboratory results Normal [facility] Moderately Hemolyzed . Interpret Troponin with caution. Patients with high levels of Biotin oral intake (ie >5 mg/day) may have falsely decreased Troponin levels. [facility] Vital signson 02-19-2024 Oxygen saturation in Venous blood 71.7 % [facility] Heart rate 82 /min bpm [facility] Vital signsOrdered By: Christiano Lenard on 02-19-2024 Oxygen saturation in Venous blood 19.6 % [facility] XR Chest Single viewon 02-18 Extensive patchy bilateral pulmonary consolidation, which may be due to alveolar edema versus pneumonia. Moderate bilateral pleural effusions. Report Dictated on Electronically Signed By: Ana Ashton MD Electronically Signed Date/Time: 02/19/2024 4:37 AM EST [facility] Patient Name: APOORVA GONZALEZ : [...] No pneumothorax is identified. OSSEOUS STRUCTURES: Unremarkable. [facility] Ana sAhton M D - 02/19/2024 Patient Name: APOORVA [...] Electronically Signed Date/Time: 02/19/2024 4:37 AM EST [facility] Radiology Study observation (narrative) [facility] XR Chest Single viewOrdered By: Ana Ashton on 02-19-2024 [facility] Work Phone: Basic metabolic 1998 panelon 02-12-2024 Anion gap [Moles/Vol] 12 mmol/L 3 - 13 mmol/L [facility] Calcium [Mass/Vol] 8.7 mg/dL 8.4 - 10. 4 mg/dL [facility] Chloride [Moles/Vol] 90 mmol/L Low 98 - 10 7 mmol/L [facility] CO2 [Moles/Vol] 32 mmol/L High 22 - 30 mmol/L [facility] Creatinine [Mass/Vol] 2.71 mg/dL High 0.52 - 1.04 mg/dL [facility] GFR/1.73 sq M.predicted (S/P/Bld) [Vol rate/Area] 18 mL/min Low - PINF [facility] Comment on above: Calculation based on the Chronic Kidney Disease Epidemiology Collaboration (CKD-EPI) equation refit without adjustment for race Glucose [Mass/Vol] 92 mg/dL 70 - 100 mg/dL [facility] Interpretation and review of laboratory results Abnormal [facility] Potassium [Moles/Vol] 4 mmol/L 3.5 - 5.1 mmol/L [facility] Sodium [Moles/Vol] 134 mmol/L Low 135 - 145 mmol/L [facility] Urea nitrogen [Mass/Vol] 11 mg/dL 7 - 17 mg/dL [facility] Slightly Hemolyzed. Interpret K+ with caution. [facility] CBC panel Auto (Bld)on 02-11 Erythrocyte distribution width (RBC) [Ratio] 16.3 % High 11.5 - 15.0 % [facility] Hematocrit (Bld) [Volume fraction] 23.7 % Low 35.0 - 47.0 % [facility] Hemoglobin (Bld) [Mass/Vol] 7.6 g/dL Low 11.7 - 16.0 g/dL [facility] Interpretation and review of laboratory results Abnormal [facility] MCH (RBC) [Entitic mass] 30.8 pg 26.0 - 34.0 pg [facility] MCHC (RBC) [Mass/Vol] 32.1 % 30.5 - 36.0 % [facility] MCV (RBC) [Entitic vol] 96 fL 77.0 - 99.0 fL [facility] Platelet mean volume (Bld) [Entitic vol] 11 fL 9.0 - 12.7 fL [facility] Platelets (Bld) [#/Vol] 385 10*3/uL 140 - 440 10*3/uL [facility] RBC (Bld) [#/Vol] 2.47 10*6/uL Low 3.80 - 5.2 0 10*6/uL [facility] WBC (Bld) [#/Vol] 11.5 10*3/uL High 3.6 - 10.7 10*3/uL [facility] Laboratory - Chemistry and C hemistry - challengeon 02-12-2024 Troponin I.cardiac [Mass/Vol] 0.03 ng/mL NINF - 0.034 ng/mL [facility] Troponin I.cardiac [Mass/Vol ]on 02-12-2024 Interpretation and review of laboratory results Normal [facility] Slightly Hemolyzed. Interpret Troponin I with caution. Patients with high levels of Biotin oral intake (ie >5 mg/day) may have falsely decreased Troponin levels. [facility] Basic metabolic 1998 panelon 01-25-2024 Anion gap [Moles/Vol] 17 mmol/L High 3 - 13 mmol/L [facility] Calcium [Mass/Vol] 8.3 mg/dL Low 8.4 - 10. 4 mg/dL [facility] Chloride [Moles/Vol] 101 mmol/L 98 - 10 7 mmol/L [facility] CO2 [Moles/Vol] 18 mmol/L Low 22 - 30 mmol/L [facility] Creatinine [Mass/Vol] 8.47 mg/dL High 0.52 - 1.04 mg/dL [facility] GFR/1.73 sq M.predicted (S/P/Bld) [Vol rate/Area] 4.6 mL/min Low - PINF [facility] Comment on above: Calculation based on the Chronic Kidney Disease Epidemiology Collaboration (CKD-EPI) equation refit without adjustment for race Glucose [Mass/Vol] 82 mg/dL 70 - 100 mg/dL [facility] Interpretation and review of laboratory results Abnormal [facility] Potassium [Moles/Vol] 4.6 mmol/L 3.5 - 5.1 mmol/L [facility] Sodium [Moles/Vol] 136 mmol/L 135 - 145 mmol/L [facility] Urea nitrogen [Mass/Vol] 36 mg/dL High 7 - 17 mg/dL [facility] CBC W Auto Differential pane l (Bld)on 01-25-2024 Basophils (Bld) [#/Vol] 0.1 10*3/uL 0.0 - 0.2 10*3/uL [facility] Basophils/100 WBC (Bld) 0.9 % 0.0 - 2.0 % [facility] Eosinophils (Bld) [#/Vol] 0.3 10*3/uL 0.0 - 0.5 10*3/uL [facility] Eosinophils/100 WBC (Bld) 1.7 % 0.0 - 6.0 % [facility] Erythrocyte distribution width (RBC) [Ratio] 15.7 % High 11.5 - 15.0 % [facility] Hematocrit (Bld) [Volume fraction] 26.4 % Low 35.0 - 47.0 % [facility] Hemoglobin (Bld) [Mass/Vol] 8.6 g/dL Low 11.7 - 16.0 g/dL [facility] Immature granulocytes (Bld) [#/Vol] 0.1 10*3/uL High NINF - 0.1 10*3/uL [facility] Immature granulocytes/100 WBC (Bld) 0.7 % 0.0 - 2.0 % [facility] Interpretation and review of laboratory results Abnormal [facility] Lymphocytes (Bld) [#/Vol] 2.3 10*3/uL 1.0 - 4.3 10*3/uL [facility] Lymphocytes/100 WBC (Bld) 15.3 % 15.0 - 45.0 % [facility] MCH (RBC) [Entitic mass] 30.3 pg 26.0 - 34.0 pg [facility] MCHC (RBC) [Mass/Vol] 32.6 % 30.5 - 36.0 % [facility] MCV (RBC) [Entitic vol] 93 fL 77.0 - 99.0 fL [facility] Monocytes (Bld) [#/Vol] 0.8 10*3/uL 0.0 - 0.9 10*3/uL [facility] Monocytes/100 WBC (Bld) 5 % 5.0 - 13.0 % [facility] Neutrophils (Bld) [#/Vol] 11.6 10*3/uL High 1.8 - 7.5 10*3/uL [facility] Neutrophils/100 WBC (Bld) 76.4 % 38.0 - 82.0 % [facility] Nucleated RBC/100 WBC (Bld) [Ratio] 0 % [facility] Platelet mean volume (Bld) [Entitic vol] 9.8 fL 9.0 - 12.7 fL [facility] Platelets (Bld) [#/Vol] 400 10*3/uL 140 - 440 10*3/uL [facility] RBC (Bld) [#/Vol] 2.84 10*6/uL Low 3.80 - 5.2 0 10*6/uL [facility] WBC (Bld) [#/Vol] 15.1 10*3/uL High 3.6 - 10.7 10*3/uL [facility] Laboratory - Chemistry and C hemistry - challengeon 01-25-2024 Magnesium [Mass/Vol] 2.2 mg/dL 1.6 - 2 .3 mg/dL [facility] Magnesium [Mass/Vol]on 01-24 Interpretation and review of laboratory results Normal [facility] No Panel Informationon 01-24 [facility] Phosphate [Moles/Vol]on 01-04 Interpretation and review of laboratory results Abnormal [facility] Phosphate [Mass/Vol] 5.7 mg/dL High 2.5 - 4 .5 mg/dL [facility] Basic metabolic 1998 panelOr dered By: Mak Hobbs on 01-24-2024 Anion gap [Moles/Vol] 11 mmol/L 3 - 13 mmol/L [facility] Calcium [Mass/Vol] 7.7 mg/dL Low 8.4 - 10. 4 mg/dL [facility] Chloride [Moles/Vol] 103 mmol/L 98 - 10 7 mmol/L [facility] CO2 [Moles/Vol] 23 mmol/L 22 - 30 mmol/L [facility] Creatinine [Mass/Vol] 6.63 mg/dL High 0.52 - 1.04 mg/dL [facility] GFR/1.73 sq M.predicted (S/P/Bld) [Vol rate/Area] 6.2 mL/min Low - PINF [facility] Comment on above: Calculation based on the Chronic Kidney Disease Epidemiology Collaboration (CKD-EPI) equation refit without adjustment for race Glucose [Mass/Vol] 116 mg/dL High 70 - 100 mg/dL [facility] Interpretation and review of laboratory results Abnormal [facility] Potassium [Moles/Vol] 4 mmol/L 3.5 - 5.1 mmol/L [facility] Sodium [Moles/Vol] 136 mmol/L 135 - 145 mmol/L [facility] Urea nitrogen [Mass/Vol] 30 mg/dL High 7 - 17 mg/dL [facility] Blood type and Crossmatch pa kojo (Bld)on 01-24-2024 ABO group Nom (Bld) O [facility] Blood group antibody screen GEL Ql Negative [facility] D Ag Ql (RBC) Positive [facility] CBC W Auto Differential pane l (Bld)on 01-24-2024 Basophils (Bld) [#/Vol] 0.1 10*3/uL 0.0 - 0.2 10*3/uL [facility] Basophils/100 WBC (Bld) 0.7 % 0.0 - 2.0 % [facility] Eosinophils (Bld) [#/Vol] 0.2 10*3/uL 0.0 - 0.5 10*3/uL [facility] Eosinophils/100 WBC (Bld) 1.7 % 0.0 - 6.0 % [facility] Erythrocyte distribution width (RBC) [Ratio] 16.3 % High 11.5 - 15.0 % [facility] Hematocrit (Bld) [Volume fraction] 19.8 % Low 35.0 - 47.0 % [facility] Hemoglobin (Bld) [Mass/Vol] 6.4 g/dL Critically low 11.7 - 16.0 g/dL [facility] Immature granulocytes (Bld) [#/Vol] 0.1 10*3/uL High NINF - 0.1 10*3/uL [facility] Immature granulocytes/100 WBC (Bld) 0.8 % 0.0 - 2.0 % [facility] Interpretation and review of laboratory results Abnormal [facility] Lymphocytes (Bld) [#/Vol] 1.5 10*3/uL 1.0 - 4.3 10*3/uL [facility] Lymphocytes/100 WBC (Bld) 10.5 % Low 15.0 - 45.0 % [facility] MCH (RBC) [Entitic mass] 29.9 pg 26.0 - 34.0 pg [facility] MCHC (RBC) [Mass/Vol] 32.3 % 30.5 - 36.0 % [facility] MCV (RBC) [Entitic vol] 92.5 fL 77.0 - 99.0 fL [facility] Monocytes (Bld) [#/Vol] 0.6 10*3/uL 0.0 - 0.9 10*3/uL [facility] Monocytes/100 WBC (Bld) 4.4 % Low 5.0 - 13.0 % [facility] Neutrophils (Bld) [#/Vol] 11.6 10*3/uL High 1.8 - 7.5 10*3/uL [facility] Neutrophils/100 WBC (Bld) 81.9 % 38.0 - 82.0 % [facility] Nucleated RBC/100 WBC (Bld) [Ratio] 0 % [facility] Platelet mean volume (Bld) [Entitic vol] 10 fL 9.0 - 12.7 fL [facility] Platelets (Bld) [#/Vol] 327 10*3/uL 140 - 440 10*3/uL [facility] RBC (Bld) [#/Vol] 2.14 10*6/uL Low 3.80 - 5.2 0 10*6/uL [facility] WBC (Bld) [#/Vol] 14.2 10*3/uL High 3.6 - 10.7 10*3/uL [facility] Guidance for embolization of Vesselson 01-24-2024 Angiography [...] a permanent image was stored. A 5 Slovenian short sheath was placed. Vessel accessed: Left [...] MD Electronically Signed Date/Time: 01/24/2024 5:35 PM [facility] Patient Care SYSTEM Patient Name: APOORVA GONZALEZ : 1950 [...] the splenic flexure. Complications: No immediate complications. [facility] Jovan Glynn MD - 01/24/2024 Patient Name: [...] a permanent image was stored. A 5 Slovenian short sheath was placed. Vessel accessed: Left [...] Electronically Signed Date/Time: 01/24/2024 5:35 PM EDT [facility] Radiology Study observation (narrative) [facility] Guidance for embolization of VesselsOrdered By: Jovan Glynn on 01-24-2024 [employer] [facility] Work Phone: Hemoglobin (Bld) [Mass/Vol]o n 01-24-2024 Hematocrit (Bld) [Volume fraction] 23.7 % Low 35.0 - 47.0 % [facility] Interpretation and review of laboratory results Abnormal [facility] Hemoglobin (Bld) [Mass/Vol]O rdered By: Ct Hays on 01-24-2024 Hematocrit (Bld) [Volume fraction] 23 % Low 35.0 - 47.0 % [facility] Interpretation and review of laboratory results Abnormal [facility] Laboratory - Chemistry and C hemistry - challengeon 01-24-2024 Magnesium [Mass/Vol] 2 mg/dL 1.6 - 2 .3 mg/dL [facility] Laboratory - Hematology and Cell countson 01-24-2024 Hemoglobin (Bld) [Mass/Vol] 7.7 g/dL Low 11.7 - 16.0 g/dL [facility] Laboratory - Hematology and Cell countsOrdered By: Ct Hays on 01-24-2024 Hemoglobin (Bld) [Mass/Vol] 7.7 g/dL Low 11.7 - 16.0 g/dL [facility] Magnesium [Mass/Vol]on 01-23 Interpretation and review of laboratory results Normal [facility] Gastrointestinal tract Vi ews for gastrointestinal bleedingon 01-24-2024 Findings consistent with active gastrointestinal hemorrhage, which appears to originate from the colon near the splenic flexure. Report Dictated on Electronically Signed By: Veronica Monsivais MD Electronically Signed Date/Time: 01/24/2024 2:58 PM [facility] Name[facility] APO[facility] 1950 [id number] Exam Date/Time: 01/24/2024 14:46 Procedure: NM GASTROINTESTINAL [...] the liver, spleen, and large intra-abdominal vessels. [facility] Veronica Monsivais MD - 01/24/2024 Patient Name: APOORVA [facility]ONZALEZ : 1950 [id number] Exam Date/Time: 01/24/2024 14:46 Procedure: NM GASTROINTESTINAL [...] Electronically Signed Date/Time: 01/24/2024 2:58 PM EDT [facility] Radiology Study observation (narrative) [facility] Gastrointestinal tract Vi ews for gastrointestinal bleedingOrdered By: Veronica Monsivais on 01-24-2024 [facility] No Panel Informationon 01-23 Blood Expiration Date [id number] S [facility] Crossmatch interpretation COMP [facility] Dispense Status Transfused [employer] [facility] Product Blood Type 5100 [facility] PRODUCT CODE [id number] [facility] Unit ABO O [facility] Unit Number [id number] [facility] RH Positive [facility] Unit Volume 300 mL [facility] Phosphate [Moles/Vol]on 01-04 Interpretation and review of laboratory results Abnormal [facility] Phosphate [Mass/Vol] 5 mg/dL High 2.5 - 4 .5 mg/dL [facility] Basic metabolic 1998 panelOr dered By: Gracie Wooten on 01-23-2024 Anion gap [Moles/Vol] 5 mmol/L 3 - 13 mmol/L [facility] Calcium [Mass/Vol] 7.6 mg/dL Low 8.4 - 10. 4 mg/dL [facility] Chloride [Moles/Vol] 101 mmol/L 98 - 10 7 mmol/L [facility] CO2 [Moles/Vol] 30 mmol/L 22 - 30 mmol/L [facility] Creatinine [Mass/Vol] 4.86 mg/dL High 0.52 - 1.04 mg/dL [facility] GFR/1.73 sq M.predicted (S/P/Bld) [Vol rate/Area] 8.9 mL/min Low - PINF [facility] Comment on above: Calculation based on the Chronic Kidney Disease Epidemiology Collaboration (CKD-EPI) equation refit without adjustment for race Glucose [Mass/Vol] 107 mg/dL High 70 - 100 mg/dL [facility] Interpretation and review of laboratory results Abnormal [facility] Potassium [Moles/Vol] 4.4 mmol/L 3.5 - 5.1 mmol/L [facility] Sodium [Moles/Vol] 136 mmol/L 135 - 145 mmol/L [facility] Urea nitrogen [Mass/Vol] 26 mg/dL High 7 - 17 mg/dL [facility] CBC W Auto Differential pane l (Bld)on 01-23-2024 Basophils (Bld) [#/Vol] 0.1 10*3/uL 0.0 - 0.2 10*3/uL [facility] Basophils/100 WBC (Bld) 0.7 % 0.0 - 2.0 % [facility] Eosinophils (Bld) [#/Vol] 0.4 10*3/uL 0.0 - 0.5 10*3/uL [facility] Eosinophils/100 WBC (Bld) 3.1 % 0.0 - 6.0 % [facility] Erythrocyte distribution width (RBC) [Ratio] 16 % High 11.5 - 15.0 % [facility] Hematocrit (Bld) [Volume fraction] 24.7 % Low 35.0 - 47.0 % [facility] Hemoglobin (Bld) [Mass/Vol] 8 g/dL Low 11.7 - 16.0 g/dL [facility] Immature granulocytes (Bld) [#/Vol] 0.1 10*3/uL High NINF - 0.1 10*3/uL [facility] Immature granulocytes/100 WBC (Bld) 0.7 % 0.0 - 2.0 % [facility] Interpretation and review of laboratory results Abnormal [facility] Lymphocytes (Bld) [#/Vol] 1.6 10*3/uL 1.0 - 4.3 10*3/uL [facility] Lymphocytes/100 WBC (Bld) 11.5 % Low 15.0 - 45.0 % [facility] MCH (RBC) [Entitic mass] 29.6 pg 26.0 - 34.0 pg [facility] MCHC (RBC) [Mass/Vol] 32.4 % 30.5 - 36.0 % [facility] MCV (RBC) [Entitic vol] 91.5 fL 77.0 - 99.0 fL [facility] Monocytes (Bld) [#/Vol] 0.9 10*3/uL 0.0 - 0.9 10*3/uL [facility] Monocytes/100 WBC (Bld) 6.4 % 5.0 - 13.0 % [facility] Neutrophils (Bld) [#/Vol] 10.7 10*3/uL High 1.8 - 7.5 10*3/uL [facility] Neutrophils/100 WBC (Bld) 77.6 % 38.0 - 82.0 % [facility] Nucleated RBC/100 WBC (Bld) [Ratio] 0 % [facility] Platelet mean volume (Bld) [Entitic vol] 10 fL 9.0 - 12.7 fL [facility] Platelets (Bld) [#/Vol] 325 10*3/uL 140 - 440 10*3/uL [facility] RBC (Bld) [#/Vol] 2.7 10*6/uL Low 3.80 - 5.2 0 10*6/uL [facility] WBC (Bld) [#/Vol] 13.8 10*3/uL High 3.6 - 10.7 10*3/uL [facility] Laboratory - Chemistry and C hemistry - challengeon 01-23-2024 Glucose [Mass/Vol] 87 mg/dL 70 - 100 mg/dL [facility] Magnesium [Mass/Vol] 2.1 mg/dL 1.6 - 2 .3 mg/dL [facility] No Panel Informationon 01-22 Interpretation and review of laboratory results Normal [facility] Performed by: [facility], [address] [place] [address] CLIA ID: [id number] [facility] Interpretation and review of laboratory results Normal [facility] Phosphate [Moles/Vol]on 01-04 Phosphate [Mass/Vol] 4.3 mg/dL 2.5 - 4 .5 mg/dL [facility] Basic metabolic 1998 panelOr dered By: Christiano Weinberg on 01-22-2024 Anion gap [Moles/Vol] 9 mmol/L 3 - 13 mmol/L [facility] Calcium [Mass/Vol] 6.7 mg/dL Low 8.4 - 10. 4 mg/dL [facility] Chloride [Moles/Vol] 102 mmol/L 98 - 10 7 mmol/L [facility] CO2 [Moles/Vol] 21 mmol/L Low 22 - 30 mmol/L [facility] Creatinine [Mass/Vol] 7.66 mg/dL High 0.52 - 1.04 mg/dL [facility] GFR/1.73 sq M.predicted (S/P/Bld) [Vol rate/Area] 5.2 mL/min Low - PINF [facility] Comment on above: Calculation based on the Chronic Kidney Disease Epidemiology Collaboration (CKD-EPI) equation refit without adjustment for race Glucose [Mass/Vol] 78 mg/dL 70 - 100 mg/dL [facility] Interpretation and review of laboratory results Abnormal [facility] Potassium [Moles/Vol] 4.8 mmol/L 3.5 - 5.1 mmol/L [facility] Sodium [Moles/Vol] 133 mmol/L Low 135 - 145 mmol/L [facility] Urea nitrogen [Mass/Vol] 49 mg/dL High 7 - 17 mg/dL [facility] CBC W Auto Differential pane l (Bld)on 01-22-2024 Basophils (Bld) [#/Vol] 0.1 10*3/uL 0.0 - 0.2 10*3/uL [facility] Basophils/100 WBC (Bld) 0.5 % 0.0 - 2.0 % [facility] Eosinophils (Bld) [#/Vol] 0.5 10*3/uL 0.0 - 0.5 10*3/uL [facility] Eosinophils/100 WBC (Bld) 2.5 % 0.0 - 6.0 % [facility] Erythrocyte distribution width (RBC) [Ratio] 16.8 % High 11.5 - 15.0 % [facility] Hematocrit (Bld) [Volume fraction] 24.3 % Low 35.0 - 47.0 % [facility] Hemoglobin (Bld) [Mass/Vol] 8 g/dL Low 11.7 - 16.0 g/dL [facility] Immature granulocytes (Bld) [#/Vol] 0.1 10*3/uL High NINF - 0.1 10*3/uL [facility] Immature granulocytes/100 WBC (Bld) 0.6 % 0.0 - 2.0 % [facility] Interpretation and review of laboratory results Abnormal [facility] Lymphocytes (Bld) [#/Vol] 2.4 10*3/uL 1.0 - 4.3 10*3/uL [facility] Lymphocytes/100 WBC (Bld) 13.4 % Low 15.0 - 45.0 % [facility] MCH (RBC) [Entitic mass] 29.5 pg 26.0 - 34.0 pg [facility] MCHC (RBC) [Mass/Vol] 32.9 % 30.5 - 36.0 % [facility] MCV (RBC) [Entitic vol] 89.7 fL 77.0 - 99.0 fL [facility] Monocytes (Bld) [#/Vol] 1.3 10*3/uL High 0.0 - 0.9 10*3/uL [facility] Monocytes/100 WBC (Bld) 7.1 % 5.0 - 13.0 % [facility] Neutrophils (Bld) [#/Vol] 13.4 10*3/uL High 1.8 - 7.5 10*3/uL [facility] Neutrophils/100 WBC (Bld) 75.9 % 38.0 - 82.0 % [facility] Nucleated RBC/100 WBC (Bld) [Ratio] 0 % [facility] Platelet mean volume (Bld) [Entitic vol] 10.4 fL 9.0 - 12.7 fL [facility] Platelets (Bld) [#/Vol] 292 10*3/uL 140 - 440 10*3/uL [facility] RBC (Bld) [#/Vol] 2.71 10*6/uL Low 3.80 - 5.2 0 10*6/uL [facility] WBC (Bld) [#/Vol] 17.7 10*3/uL High 3.6 - 10.7 10*3/uL [facility] HBV surface Ab IA Qnon 01-21 Interpretation: <8.0 Non-Reactive 8.0-11.9 Equivocal >= 12.0 Ab Detected Note: If an equivocal result is interpreted, an antibody status is unable to be determined. Collect new specimen if clinically indicated. [facility] HBV surface Ag IA Qlon 01-21 Interpretation and review of laboratory results Normal [facility] Laboratory - Chemistry and C hemistry - challengeon 01-22-2024 Magnesium [Mass/Vol] 2.2 mg/dL 1.6 - 2 .3 mg/dL [facility] Laboratory - Microbiology an d Antimicrobial susceptibilityon 01-22-2024 HBV surface Ab IA Qn mIU/mL [facility] HBV surface Ag IA Ql Not detected Not Detected [facility] Magnesium [Mass/Vol]on 01-21 Interpretation and review of laboratory results Normal [facility] No Panel Informationon 01-21 [facility] Phosphate [Moles/Vol]on 01-03 Interpretation and review of laboratory results Abnormal [facility] Phosphate [Mass/Vol] 5.5 mg/dL High 2.5 - 4 .5 mg/dL [facility] Basic metabolic 1998 panelOr dered By: Handy Jarvis on 01-21-2024 Anion gap [Moles/Vol] 9 mmol/L 3 - 13 mmol/L [facility] Calcium [Mass/Vol] 7.4 mg/dL Low 8.4 - 10. 4 mg/dL [facility] Chloride [Moles/Vol] 100 mmol/L 98 - 10 7 mmol/L [facility] CO2 [Moles/Vol] 26 mmol/L 22 - 30 mmol/L [facility] Creatinine [Mass/Vol] 4.74 mg/dL High 0.52 - 1.04 mg/dL [facility] GFR/1.73 sq M.predicted (S/P/Bld) [Vol rate/Area] 9.2 mL/min Low - PINF [facility] Comment on above: Calculation based on the Chronic Kidney Disease Epidemiology Collaboration (CKD-EPI) equation refit without adjustment for race Glucose [Mass/Vol] 85 mg/dL 70 - 100 mg/dL [facility] Interpretation and review of laboratory results Abnormal [facility] Potassium [Moles/Vol] 4.5 mmol/L 3.5 - 5.1 mmol/L [facility] Sodium [Moles/Vol] 135 mmol/L 135 - 145 mmol/L [facility] Urea nitrogen [Mass/Vol] 26 mg/dL High 7 - 17 mg/dL [facility] CBC W Auto Differential pane l (Bld)on 01-21-2024 Basophils (Bld) [#/Vol] 0.1 10*3/uL 0.0 - 0.2 10*3/uL [facility] Basophils/100 WBC (Bld) 0.6 % 0.0 - 2.0 % [facility] Eosinophils (Bld) [#/Vol] 0.1 10*3/uL 0.0 - 0.5 10*3/uL [facility] Eosinophils/100 WBC (Bld) 0.6 % 0.0 - 6.0 % [facility] Erythrocyte distribution width (RBC) [Ratio] 16.4 % High 11.5 - 15.0 % [facility] Hematocrit (Bld) [Volume fraction] 21 % Low 35.0 - 47.0 % [facility] Hemoglobin (Bld) [Mass/Vol] 7 g/dL Low 11.7 - 16.0 g/dL [facility] Immature granulocytes (Bld) [#/Vol] 0.2 10*3/uL High NINF - 0.1 10*3/uL [facility] Immature granulocytes/100 WBC (Bld) 0.7 % 0.0 - 2.0 % [facility] Interpretation and review of laboratory results Abnormal [facility] Lymphocytes (Bld) [#/Vol] 2.8 10*3/uL 1.0 - 4.3 10*3/uL [facility] Lymphocytes/100 WBC (Bld) 12.4 % Low 15.0 - 45.0 % [facility] MCH (RBC) [Entitic mass] 30.2 pg 26.0 - 34.0 pg [facility] MCHC (RBC) [Mass/Vol] 33.3 % 30.5 - 36.0 % [facility] MCV (RBC) [Entitic vol] 90.5 fL 77.0 - 99.0 fL [facility] Monocytes (Bld) [#/Vol] 1.2 10*3/uL High 0.0 - 0.9 10*3/uL [facility] Monocytes/100 WBC (Bld) 5.4 % 5.0 - 13.0 % [facility] Neutrophils (Bld) [#/Vol] 18.3 10*3/uL High 1.8 - 7.5 10*3/uL [facility] Neutrophils/100 WBC (Bld) 80.3 % 38.0 - 82.0 % [facility] Nucleated RBC/100 WBC (Bld) [Ratio] 0 % [facility] Platelet mean volume (Bld) [Entitic vol] 10.5 fL 9.0 - 12.7 fL [facility] Platelets (Bld) [#/Vol] 268 10*3/uL 140 - 440 10*3/uL [facility] RBC (Bld) [#/Vol] 2.32 10*6/uL Low 3.80 - 5.2 0 10*6/uL [facility] WBC (Bld) [#/Vol] 22.8 10*3/uL High 3.6 - 10.7 10*3/uL [facility] Hemoglobin (Bld) [Mass/Vol]o n 01-21-2024 Hematocrit (Bld) [Volume fraction] 24.9 % Low 35.0 - 47.0 % [facility] Interpretation and review of laboratory results Abnormal [facility] Hemoglobin (Bld) [Mass/Vol]O rdered By: Shanua Ayon on 01-21-2024 Hematocrit (Bld) [Volume fraction] 20.4 % Low 35.0 - 47.0 % [facility] Interpretation and review of laboratory results Abnormal [facility] Laboratory - Chemistry and C hemistry - challengeon 01-21-2024 Magnesium [Mass/Vol] 2 mg/dL 1.6 - 2 .3 mg/dL [facility] Laboratory - Hematology and Cell countson 01-21-2024 Hemoglobin (Bld) [Mass/Vol] 8.2 g/dL Low 11.7 - 16.0 g/dL [facility] Laboratory - Hematology and Cell countsOrdered By: Shauna Ayon on 01-21-2024 Hemoglobin (Bld) [Mass/Vol] 6.8 g/dL Critically low 11.7 - 16.0 g/dL [facility] Magnesium [Mass/Vol]on 01-20 Interpretation and review of laboratory results Normal [facility] No Panel Informationon 01-20 Blood Expiration Date [id number] S [facility] Crossmatch interpretation COMP [facility] Dispense Status Transfused [facility] Product Blood Type 5100 [facility] PRODUCT CODE [id number] [facility] Unit ABO O [facility] Unit Number [id number] [facility] Unit RH Positive [facility] Unit Volume 300 mL [facility] Phosphate [Moles/Vol]on 01-03 Interpretation and review of laboratory results Abnormal [facility] Phosphate [Mass/Vol] 6.4 mg/dL High 2.5 - 4 .5 mg/dL [facility] Basic metabolic 1998 panelon 01-20-2024 Anion gap [Moles/Vol] 9 mmol/L 3 - 13 mmol/L [facility] Calcium [Mass/Vol] 7.2 mg/dL Low 8.4 - 10. 4 mg/dL [facility] Chloride [Moles/Vol] 97 mmol/L Low 98 - 10 7 mmol/L [facility] CO2 [Moles/Vol] 27 mmol/L 22 - 30 mmol/L [facility] Creatinine [Mass/Vol] 8.34 mg/dL High 0.52 - 1.04 mg/dL [facility] GFR/1.73 sq M.predicted (S/P/Bld) [Vol rate/Area] 4.7 mL/min Low - PINF [facility] Comment on above: Calculation based on the Chronic Kidney Disease Epidemiology Collaboration (CKD-EPI) equation refit without adjustment for race Glucose [Mass/Vol] 116 mg/dL High 70 - 100 mg/dL [facility] Interpretation and review of laboratory results Abnormal [facility] Potassium [Moles/Vol] 5.3 mmol/L High 3.5 - 5.1 mmol/L [facility] Sodium [Moles/Vol] 132 mmol/L Low 135 - 145 mmol/L [facility] Urea nitrogen [Mass/Vol] 50 mg/dL High 7 - 17 mg/dL [facility] CBC W Auto Differential pane l (Bld)on 01-20-2024 Basophils (Bld) [#/Vol] 0.1 10*3/uL 0.0 - 0.2 10*3/uL [facility] Basophils/100 WBC (Bld) 0.5 % 0.0 - 2.0 % [facility] Eosinophils (Bld) [#/Vol] 0 10*3/uL 0.0 - 0.5 10*3/uL [facility] Eosinophils/100 WBC (Bld) 0 % 0.0 - 6.0 % [facility] Erythrocyte distribution width (RBC) [Ratio] 15.6 % High 11.5 - 15.0 % [facility] Hematocrit (Bld) [Volume fraction] 24.9 % Low 35.0 - 47.0 % [facility] Hemoglobin (Bld) [Mass/Vol] 8.5 g/dL Low 11.7 - 16.0 g/dL [facility] Immature granulocytes (Bld) [#/Vol] 0.1 10*3/uL High NINF - 0.1 10*3/uL [facility] Immature granulocytes/100 WBC (Bld) 0.6 % 0.0 - 2.0 % [facility] Interpretation and review of laboratory results Abnormal [facility] Lymphocytes (Bld) [#/Vol] 2 10*3/uL 1.0 - 4.3 10*3/uL [facility] Lymphocytes/100 WBC (Bld) 10 % Low 15.0 - 45.0 % [facility] MCH (RBC) [Entitic mass] 30.5 pg 26.0 - 34.0 pg [facility] MCHC (RBC) [Mass/Vol] 34.1 % 30.5 - 36.0 % [facility] MCV (RBC) [Entitic vol] 89.2 fL 77.0 - 99.0 fL [facility] Monocytes (Bld) [#/Vol] 1.1 10*3/uL High 0.0 - 0.9 10*3/uL [facility] Monocytes/100 WBC (Bld) 5.4 % 5.0 - 13.0 % [facility] Neutrophils (Bld) [#/Vol] 16.8 10*3/uL High 1.8 - 7.5 10*3/uL [facility] Neutrophils/100 WBC (Bld) 83.5 % High 38.0 - 82.0 % [facility] Nucleated RBC/100 WBC (Bld) [Ratio] 0 % [facility] Platelet mean volume (Bld) [Entitic vol] 10.5 fL 9.0 - 12.7 fL [facility] Platelets (Bld) [#/Vol] 285 10*3/uL 140 - 440 10*3/uL [facility] RBC (Bld) [#/Vol] 2.79 10*6/uL Low 3.80 - 5.2 0 10*6/uL [facility] WBC (Bld) [#/Vol] 20.1 10*3/uL High 3.6 - 10.7 10*3/uL [facility] Hemoglobin (Bld) [Mass/Vol]O rdered By: Adrienne Bradshaw on 01-20-2024 Hematocrit (Bld) [Volume fraction] 24.7 % Low 35.0 - 47.0 % [facility] Interpretation and review of laboratory results Abnormal [facility] Hemoglobin (Bld) [Mass/Vol]o n 01-20-2024 Hematocrit (Bld) [Volume fraction] 21.3 % Low 35.0 - 47.0 % [facility] Interpretation and review of laboratory results Abnormal [facility] Hematocrit (Bld) [Volume fraction] 23.4 % Low 35.0 - 47.0 % [facility] Interpretation and review of laboratory results Abnormal [facility] Hemoglobin (Bld) [Mass/Vol]O rdered By: Andre Ervin on 01-20-2024 Hematocrit (Bld) [Volume fraction] 28.4 % Low 35.0 - 47.0 % [facility] Interpretation and review of laboratory results Abnormal [facility] Laboratory - Chemistry and C hemistry - challengeon 01-20-2024 Magnesium [Mass/Vol] 2 mg/dL 1.6 - 2 .3 mg/dL [facility] Laboratory - Hematology and Cell countsOrdered By: Adrienne Bradshaw on 01-20-2024 Hemoglobin (Bld) [Mass/Vol] 8.3 g/dL Low 11.7 - 16.0 g/dL [facility] Laboratory - Hematology and Cell countson 01-20-2024 Hemoglobin (Bld) [Mass/Vol] 7.3 g/dL Low 11.7 - 16.0 g/dL [employer] Hemoglobin (Bld) [Mass/Vol] 7.9 g/dL Low 11.7 - 16.0 g/dL [employer] Laboratory - Hematology and Cell countsOrdered By: Andre Ervin on 01-20-2024 Hemoglobin (Bld) [Mass/Vol] 9.5 g/dL Low 11.7 - 16.0 g/dL [employer] Magnesium [Mass/Vol]on 01-19 Interpretation and review of laboratory results Normal [employer] No Panel InformationOrdered By: Candis Andrade on 01-20-2024 [employer] Work Phone: No Panel InformationOrdered By: Link Alaniz on 01-20-2024 P Clayton 88 degrees [employer] Phone: NC Interval 124 ms [employer] Phone: QRS [place] 33 degrees [employer] Phone: QRSD Interval 76 ms [employer] Phone: QT Interval 348 ms [employer] Phone: QTC Interval 455 ms [employer] Work Phone: T Wave Clayton 60 degrees [employer] Phone: [employer] Work Phone: No Panel Informationon 01-19 Sinus tachycardia Consider left ventricular hypertrophy Electronically Signed On 01-20-2024 08:04:49 EDT by Link Wang MD - 01/20/2024 IMPRESSION: Sinus tachycardia Consider left ventricular hypertrophy Electronically Signed On 01-20-2024 08:04:49 EDT by Link Alaniz [employer] No acute abnormality . Report Dictated on Electronically Signed By: Honorio Grande MD Electronically Signed Date/Time: 01/20/2024 8:00 AM EDT [facility] Patient Name: APOORVA GONZALEZ : [...] clips also noted in the antecubital fossa.. [facility] Honorio Grande MD - 01/20/2024 Patient [...] Electronically Signed Date/Time: 01/20/2024 8:00 AM EDT [facility] Radiology Study observation (narrative) [facility] Phosphate [Moles/Vol]on 01-03 Interpretation and review of laboratory results Abnormal [facility] Phosphate [Mass/Vol] 6.4 mg/dL High 2.5 - 4 .5 mg/dL [facility] RFA Celiac artery Views W co ntrast IAon 01-20-2024 Successful uncomplicated mesenteric arteriogram. Report Dictated on Electronically Signed By: Robson Andrade MD Electronically Signed Date/Time: 01/20/2024 9:37 AM EDT [facility] Patient Name: APOORVA GONZALEZ : 1950 [...] head. Access was upsized to a 5 Slovenian vascular sheath. Following this, a 0.035 Bentson wire along with a [employer] one catheter were advanced into the thoracic [...] intervention was performed at this time. [facility] Candis Andrade MD - 01/20/2024 Patient [...] head. Access was upsized to a 5 Slovenian vascular sheath. Following this, a 0.035 Bentson [...] Electronically Signed Date/Time: 01/20/2024 9:37 AM EDT [facility] Vital signsOrdered By: Link darden on 01-20-2024 Heart rate 103 /min bpm [facility] Work Phone: Blood type and Crossmatch pa kojo (Bld)on 01-19-2024 ABO group Nom (Bld) O [facility] Blood group antibody screen GEL Ql Negative [facility] D Ag Ql (RBC) Positive [facility] CBC W Auto Differential pane l (Bld)on 01-19-2024 Basophils (Bld) [#/Vol] 0.1 10*3/uL 0.0 - 0.2 10*3/uL [facility] Basophils/100 WBC (Bld) 0.6 % 0.0 - 2.0 % [facility] Eosinophils (Bld) [#/Vol] 0.1 10*3/uL 0.0 - 0.5 10*3/uL [facility] Eosinophils/100 WBC (Bld) 0.4 % 0.0 - 6.0 % [facility] Erythrocyte distribution width (RBC) [Ratio] 16.7 % High 11.5 - 15.0 % [facility] Hematocrit (Bld) [Volume fraction] 24.4 % Low 35.0 - 47.0 % [facility] Hemoglobin (Bld) [Mass/Vol] 7.7 g/dL Low 11.7 - 16.0 g/dL [facility] Immature granulocytes (Bld) [#/Vol] 0.1 10*3/uL High NINF - 0.1 10*3/uL [facility] Immature granulocytes/100 WBC (Bld) 0.4 % 0.0 - 2.0 % [facility] Interpretation and review of laboratory results Abnormal [facility] IPF 2 [facility] Lymphocytes (Bld) [#/Vol] 1.8 10*3/uL 1.0 - 4.3 10*3/uL [facility] Lymphocytes/100 WBC (Bld) 11.1 % Low 15.0 - 45.0 % [facility] MCH (RBC) [Entitic mass] 29.5 pg 26.0 - 34.0 pg [facility] MCHC (RBC) [Mass/Vol] 31.6 % 30.5 - 36.0 % [facility] MCV (RBC) [Entitic vol] 93.5 fL 77.0 - 99.0 fL [facility] Monocytes (Bld) [#/Vol] 1.1 10*3/uL High 0.0 - 0.9 10*3/uL [facility] Monocytes/100 WBC (Bld) 6.9 % 5.0 - 13.0 % [facility] Neutrophils (Bld) [#/Vol] 12.8 10*3/uL High 1.8 - 7.5 10*3/uL [facility] Neutrophils/100 WBC (Bld) 80.6 % 38.0 - 82.0 % [facility] Nucleated RBC/100 WBC (Bld) [Ratio] 0 % [facility] Platelet mean volume (Bld) [Entitic vol] 10.7 fL 9.0 - 12.7 fL [facility] Platelets (Bld) [#/Vol] 465 10*3/uL High 140 - 440 10*3/uL [facility] RBC (Bld) [#/Vol] 2.61 10*6/uL Low 3.80 - 5.2 0 10*6/uL [facility] WBC (Bld) [#/Vol] 15.9 10*3/uL High 3.6 - 10.7 10*3/uL [facility] CT Abdomen and Pelvis W cont rast Indu 01-19-2024 Descending colon active bleeding. An element of diverticulitis possible. DTR Dr Kaur Report Dictated on Electronically Signed By: Jacob Alcaraz MD Electronically Signed Date/Time: 01/19/2024 7:31 PM EDT [facility] Patient Name: APOORVA GONZALEZ : [...] There is extravasation into the ascending colon. [facility] Jacob Alcaraz MD - 01/19/2024 Patient [...] Electronically Signed Date/Time: 01/19/2024 7:31 PM EDT [facility] Radiology Study observation (narrative) [facility] CT Abdomen and Pelvis W cont rast IVOrdered By: Jacob Alcaraz on 01-19-2024 [facility] Work Phone: Comprehensive metabolic 1998 panelon 01-19-2024 Albumin [Mass/Vol] 4 g/dL 3.5 - 5.0 g/dL [facility] ALP [Catalytic activity/Vol] 88 U/L 38 - 126 U/L [facility] ALT [Catalytic activity/Vol] 14 U/L 0 - 34 U/L [facility] Anion gap [Moles/Vol] 13 mmol/L 3 - 13 mmol/L [facility] AST [Catalytic activity/Vol] 23 U/L 15 - 46 U/L [facility] Bilirubin [Mass/Vol] 0.5 mg/dL 0.2 - 1 .3 mg/dL [facility] Calcium [Mass/Vol] 8.7 mg/dL 8.4 - 10. 4 mg/dL [facility] Chloride [Moles/Vol] 92 mmol/L Low 98 - 10 7 mmol/L [facility] CO2 [Moles/Vol] 30 mmol/L 22 - 30 mmol/L [facility] Creatinine [Mass/Vol] 7.7 mg/dL High 0.52 - 1.04 mg/dL [facility] GFR/1.73 sq M.predicted (S/P/Bld) [Vol rate/Area] 5.1 mL/min Low - PINF [facility] Comment on above: Calculation based on the Chronic Kidney Disease Epidemiology Collaboration (CKD-EPI) equation refit without adjustment for race Glucose [Mass/Vol] 146 mg/dL High 70 - 100 mg/dL [facility] Interpretation and review of laboratory results Abnormal [facility] Potassium [Moles/Vol] 4.9 mmol/L 3.5 - 5.1 mmol/L [facility] Protein [Mass/Vol] 7 g/dL 6.3 - 8.2 g/dL [facility] Sodium [Moles/Vol] 135 mmol/L 135 - 145 mmol/L [facility] Urea nitrogen [Mass/Vol] 47 mg/dL High 7 - 17 mg/dL [facility] Laboratory - Chemistry and C hemistry - challengeon 01-19-2024 Troponin I.cardiac [Mass/Vol] ng/mL NINF - 0.034 ng/mL [facility] Laboratory - Coagulationon 1 aPTT Coag (PPP) [Time] 22.2 s 20.0 - 30.5 s [facility] INR Coag (PPP) [Relative time] 1 {INR} 0.9 - 1.1 [facility] Comment on above: Recommended Anticoag ulant Therapy: [...] [Time] 11 s 9.0 - 12.[address] [facility] No Panel Informationon 01-18 Blood Expiration Date S [facility] Crossmatch interpretation COMP [facility] Dispense Status Transfused [facility] Product Blood Type 5100 [facility] PRODUCT CODE [id number] [facility] Unit ABO O [facility] Unit Number [id number] [facility] Unit Number [id number] [facility] RH Positive [facility] Unit Volume 300 mL [facility] Interpretation and review of laboratory results Normal [facility] RFA Celiac artery Views W co ntrast IAon 01-19-2024 Radiology Study observation (narrative) [facility] Troponin I.cardiac [Mass/Vol ]on 01-19-2024 Interpretation and review of laboratory results Normal [facility] Patients with high levels of Biotin oral intake (ie >5 mg/day) may have falsely decreased Troponin levels. [facility] Renal function 2000 panelOrd ered By: Cathy Salinas on 08-09-2023 Albumin [Mass/Vol] 4.8 g/dL 3.5 - 5.0 g/dL [facility] Anion gap [Moles/Vol] 15 mmol/L High 3 - 13 mmol/L [facility] Calcium [Mass/Vol] 9.5 mg/dL 8.4 - 10. 4 mg/dL [facility] Chloride [Moles/Vol] 99 mmol/L 98 - 10 7 mmol/L [facility] CO2 [Moles/Vol] 21 mmol/L Low 22 - 30 mmol/L [facility] Creatinine [Mass/Vol] 9.07 mg/dL High 0.52 - 1.04 mg/dL [facility] GFR/1.73 sq M.predicted MDRD (S/P/Bld) [Vol rate/Area] 4.2 mL/min/{1.73_m2} Low - PINF [facility] Comment on above: Calculation based on the Chronic Kidney Disease Epidemiology Collaboration (CKD-EPI) equation refit without adjustment for race Glucose [Mass/Vol] 91 mg/dL 70 - 100 mg/dL [facility] Interpretation and review of laboratory results Abnormal [facility] Phosphate [Mass/Vol] 6.9 mg/dL High 2.5 - 4 .5 mg/dL [facility] Potassium [Moles/Vol] 6.1 mmol/L Critically high 3.5 - 5.1 mmol/L [facility] Sodium [Moles/Vol] 135 mmol/L 135 - 145 mmol/L [facility] Urea nitrogen [Mass/Vol] 65 mg/dL High 7 - 17 mg/dL [facility] Basic metabolic 1998 panelon 03-03-2023 Anion gap [Moles/Vol] 15 mmol/L High 3 - 13 mmol/L [facility] Calcium [Mass/Vol] 9.4 mg/dL 8.4 - 10. 4 mg/dL [facility] Chloride [Moles/Vol] 91 mmol/L Low 98 - 10 7 mmol/L [facility] CO2 [Moles/Vol] 28 mmol/L 22 - 30 mmol/L [facility] Creatinine [Mass/Vol] 6.25 mg/dL High 0.52 - 1.04 mg/dL [facility] GFR/1.73 sq M.predicted MDRD (S/P/Bld) [Vol rate/Area] 6.7 mL/min/{1.73_m2} Low - PINF [facility] Comment on above: Calculation based on the Chronic Kidney Disease Epidemiology Collaboration (CKD-EPI) equation refit without adjustment for race Glucose [Mass/Vol] 89 mg/dL 70 - 100 mg/dL [facility] Interpretation and review of laboratory results Abnormal [facility] Potassium [Moles/Vol] 4.3 mmol/L 3.5 - 5.1 mmol/L [facility] Sodium [Moles/Vol] 135 mmol/L 135 - 145 mmol/L [facility] Urea nitrogen [Mass/Vol] 33 mg/dL High 7 - 17 mg/dL [facility] CBC W Auto Differential pane l (Bld)Ordered By: Rudy Jacobs on 03-03-2023 Basophils (Bld) [#/Vol] 0.1 10*3/uL 0.0 - 0.2 10*3/uL [facility] Basophils/100 WBC (Bld) 1.4 % 0.0 - 2.0 % [facility] Eosinophils (Bld) [#/Vol] 0.3 10*3/uL 0.0 - 0.5 10*3/uL [facility] Eosinophils/100 WBC (Bld) 4.0 % 1.0 - 6.0 % [facility] Erythrocyte distribution width (RBC) [Ratio] 15.7 % High 11.5 - 14.5 % [facility] Hematocrit (Bld) [Volume fraction] 32.3 % Low 35.0 - 47.0 % [facility] Hemoglobin (Bld) [Mass/Vol] 10.6 g/dL Low 11.7 - 16.0 g/dL [facility] Interpretation and review of laboratory results Abnormal [facility] Lymphocytes (Bld) [#/Vol] 2.2 10*3/uL 1.0 - 4.3 10*3/uL [facility] Lymphocytes/100 WBC (Bld) 25.4 % 20.0 - 40.0 % [facility] MCH (RBC) [Entitic mass] 31.6 pg 26.0 - 34.0 pg [facility] MCHC (RBC) [Mass/Vol] 32.7 % 32.0 - 36.0 % [facility] MCV (RBC) [Entitic vol] 96.7 fL 80.0 - 98.0 fL [facility] Monocytes (Bld) [#/Vol] 0.8 10*3/uL 0.0 - 0.8 10*3/uL [facility] Monocytes/100 WBC (Bld) 8.8 % 2.0 - 10.0 % [facility] Neutrophils (Bld) [#/Vol] 5.2 10*3/uL 1.8 - 7.0 10*3/uL [facility] Neutrophils/100 WBC (Bld) 60.4 % 40.0 - 80.0 % [facility] Nucleated RBC/100 WBC (Bld) [Ratio] 0.0 % [facility] Platelet mean volume (Bld) [Entitic vol] 7.8 fL 7.4 - 12.4 fL [facility] Platelets (Bld) [#/Vol] 351 10*3/uL 140 - 440 10*3/uL [facility] RBC (Bld) [#/Vol] 3.34 10*6/uL Low 3.8 - 5.20 10*6/uL [facility] WBC (Bld) [#/Vol] 8.6 10*3/uL 3.6 - 10.7 10*3/uL [facility] No Panel Informationon 03-03 P Clayton 56 degrees [facility] NC Interval 118 ms [facility] QRS Clayton 13 degrees [facility] QRSD Interval 80 ms [facility] QT Interval 374 ms [facility] QTC Interval 454 ms [facility] T Wave Clayton 57 degrees [facility] Sinus rhythm Left ventricular hypertrophy Normal [place] No ST or T wave changes No significant changes compared to previous Electronically Signed On 03-03-2023 10:54:21 EST by Balta Wang CV Balta Solo MD - 03/03/2023 IMPRESSION: Sinus rhythm Left ventricular hypertrophy Normal [place] No ST or T wave changes No significant changes compared to previous Electronically Signed On 03-03-2023 10:54:21 EST by Balta Wang [facility] Troponin - One Time order ON [place] 03-03-2023 Troponin I.cardiac [Mass/Vol] ng/mL NINF - 0.034 ng/mL [facility] Troponin I.cardiac [Mass/Vol ]on 03-03-2023 Interpretation and review of laboratory results Normal [facility] Patients with high levels of Biotin oral intake (ie >5 mg/day) may have falsely decreased Troponin levels. [facility] Vital signson 03-03-2023 Heart rate 88 /min bpm [facility] DBT Breast - bilateral calvin jimenez 01-12-2023 No mammographic evidence of malignancy. ASSESSMENT: Category 1 Negative RECOMMENDATION: Routine screening mammogram in 1 year. Bilateral CANCER RISK ASSESSMENT: This risk assessment is based on patient provided information collected in a risk survey taken at the time of this examination. LIFETIME BREAST CANCER RISK: [place]: 3.33% - If greater than or equal [...] Electronically Signed Date/Time: 01/12/2023 11:44 AM EDT [facility] Name[facility] 1950 [id number] Exam Date/Time: 01/12/2023 11:31 Procedure: BI MAMMOGRAM SCREENING TOMOSYNTHESIS BILATERAL Ordering Provider: GROVE BENSON Reason For Exam: Breast cancer screening, average or low risk (Female >= 18y) Image views: 2D Bilateral CC and MLO views were acquired. 3D Bilateral CC and MLO views were acquired. Images were reviewed with CAD. Markings on images: BB's = Nipples; skin lesions Open [place] = Palpable Line = Scar COMPARISON: 11/28/2020 and 09/03/2016 TISSUE DENSITY: BIRADS C - The breast tissue is heterogeneously dense, which could obscure underlying abnormalities. FINDINGS: No suspicious masses, architectural distortions or suspiciously clustered microcalcifications are identified. There is no evidence of skin thickening or nipple retraction. There are no significant changes when compared with prior studies. [facility] [employer] Nalini Márquez MD - 01/12/2023 Patient Name: APOORVA GONZALEZ : 1950 [facility]#: [id number] Exam Date/Time: 01/12/2023 11:31 Procedure: BI MAMMOGRAM SCREENING TOMOSYNTHESIS BILATERAL Ordering Provider: GROVE BENSON Reason For Exam: Breast cancer screening, average or low risk (Female >= 18y) Image views: 2D Bilateral CC and MLO views were acquired. 3D Bilateral CC and MLO views were acquired. Images were reviewed with CAD. Markings on images: BB's = Nipples; skin lesions Open [place] = Palpable Line = Scar COMPARISON: 11/28/2020 [...] Electronically Signed Date/Time: 01/12/2023 11:44 AM EDT [employer] Radiology Study observation (narrative) [employer] DBT Breast - bilateral scree ningOrdered By: Nalini Márquez on 01-12-2023 [employer] Work Phone: XR Chest Single viewon 10-01 FINDINGS AND IMPRESSION: SUPPORT DEVICES: None OSSEOUS STRUCTURES: Unremarkable. HEART AND MEDIASTINUM: The cardiomediastinal silhouette appears unchanged from the prior exam. LUNGS AND PLEURA: The lungs are clear. No sizable pleural effusion. Report Dictated on Electronically Signed By: London Hollis Electronically Signed Date/Time: 10/01/2022 1:42 PM EDT [facility] Patient Name: APOORVA GONZALEZ : 1950 Exam Date/Time: 10/01/2022 13:12 Procedure: XR CHEST 1 VIEW Ordering Provider: HILARIO DAVID Reason For Exam: vasc cath pulled from right subclavian yesterday - bleeding today CHEST CLINICAL INDICATION: Hemorrhage, recent vascular catheter removal TECHNIQUE: AP portable chest COMPARISON: 02/26/2022 [facility] London Hollis MD - 10/01/2022 Patient [...] Electronically Signed Date/Time: 10/01/2022 1:42 PM EDT [facility] Radiology Study observation (narrative) [employer] [facility] XR Chest Single viewOrdered By: London Hollis on 10-01-2022 [facility] Work Phone: RF Guidance for removal of [...] Electronically Signed Date/Time: 09/30/2022 11:26 AM EDT [facility] Patient Name: APOORVA GONZALEZ : 1950 Exam Date/Time: 09/30/2022 10:19 Procedure: IR CVC TUNNELED CATHETER REMOVAL Ordering Provider: MEZA OLGA Reason For Exam: n18.6 PROCEDURE: Tunneled central venous catheter removal Procedural Personnel Attending physician(s): Jovan Glynn MD Indication: Catheter no longer needed Additional clinical history: None Complications: No immediate complications. [facility] [employer] Jovan Glynn MD - 09/30/2022 Patient [...] Electronically Signed Date/Time: 09/30/2022 11:26 AM EDT [facility] Radiology Study observation (narrative) [facility] RF Guidance for removal of t unneled CV catheterOrdered By: Jovan Glynn on 09-30-2022 [facility] Work Phone: Laboratory - Chemistry and C hemistry - challengeon 08-07-2022 Potassium [Moles/Vol] 4.5 mmol/L 3.5 - 5.1 mmol/L [facility] Potassium [Moles/Vol]on Interpretation and review of laboratory results Normal [facility] US VEIN MAPPING UPPER BILon 06-03-2022 US [...] EXTREMITY VEINS BILATERALLY WITH ASSOCIATED MEASUREMENTS DESCRIBED. [employer]: THU Transcribe Date/Time: Jun 04 2022 7:09A Dictated by : VICTOR MANUEL WRIGHT MD This examination was interpreted and the report reviewed and electronically signed by: VICTOR MANUEL WRIGHT MD on Jun 04 2022 7:17AM EST [id number] Normal [facility] CNCOon 09-11-2021 CNCO Letter Text Normal [facility] CNPNon 12-24-2020 CNPN Telephone (TXCTGL) APOORVA GONZALEZ DEONTE ([id number]) 1950 F TRN Date Time Provider Department [...] Status:Closed by GRETCHEN DAVID MA on 12/24/20 [facility] MG Breast Tomosynthesis Scr Blon 11-28-2020 MG Breast Tomosynthesis Scr Bl Patient Name: APOORVA GONZALEZ Mammography ACCESSION EXAM DATE/TIME PROCEDURE ORDERING PROVIDER [id number] 11/28/2020 08:55 EDT MG Breast Tomosynthesis CHRISTIANO GROVE BI Scr CPT code 22585 [id number] Reason For Exam (MG Breast Tomosynthesis BI [...] MG breast tomosynthesis bl scr performed at [facility]. TISSUE DENSITY: BIRADS C - The [...] images: BB's = Nipples; skin lesions Open [place] = Palpable Line = Scar 2D digital [...] Signed by: MD SANTOS TOM A Normal [facility] 09-24-2020 JENNYFER Telephone (TXCTGL) APOORVA GONZALEZ ([id number]) 1950 F TRN Date Time Provider Department [...] Encounter Status:Closed by MARY ELLIOTT on 09/24/20 [facility] [place] 09-13-2020 CNPN Telephone (TXCTGL) APOORVA GONZALEZ ([id number]) 1950 F TRN Date Time Provider Department 09/13/20 GRETCHEN DAVID MA TXCTGL During your visit today, we recorded [...] Status:Closed by GRETCHEN DAVID MA on 09/13/[address] [facility] [address] BIOPSY RENALon 10-25-2019 CT BIOPSY RENAL Final Report DATE OF EXAM: Oct 25 2019 9:26AM [facility] 2019 - CT BIOPSY RENAL / PROCEDURE [...] administration of agent and ending when continuous [id number] time ends): Approximately 25 minutes Patient monitoring: [...] complicated by a small left perinephric hematoma. [employer]: THU Transcribe Date/Time: Oct 25 2019 10:19A Dictated by : JOSE ANTONIO ADAMS MD This examination was interpreted and the report reviewed and electronically signed by: JOSE ANTONIO DAAMS MD on Oct 25 2019 10:23AM [facility] Otheron 10-25-2019 [facility] Pathology Miscellaneouson Pathology Miscellaneous Test performed a t [place] [address] NAME: APOORVA GONZALEZ REQUESTING: JOSE ANTONIO ADAMS MD DIAGNOSIS: Kidney: See complete report from [facility]. SPECIMEN: TISSUE FOR SEND-OUT, Medical Kidney EXTERNAL CONSULT, PATHOLOGIST (Electronic signature on file) Signed out: 11/02/2019 16:25 PRINTED: 11/02/[address] [facility] Comment on above: Performed By: #### M ISC #### [place] [address] Surgical Tissue Examon 10-24 Surgical Tissue Exam Test performed at [place] [address] NAME: APOORVA GONZALEZ REQUESTING: JOSE ANTONIO ADAMS MD COPY TO: CHRISTIANO GROVE FINAL DIAGNOSIS: LEFT KIDNEY, CORE BIOPSIES - TISSUE SUBMITTED DIRECTLY TO [facility] FOR FURTHER EVALUATION. PLEASE SEE THEIR [...] fixative, and glutaraldehyde and submitted directly to [facility] for further evaluation. EDS/sherry EXTERNAL CONSULT, PATHOLOGIST (Electronic signature on file) Signed out: 10/26/2019 08:26 PRINTED: 10/26/2019 Page 1 of 1 [facility] Comment on above: Performed By: #### S URG #### [place] [address] Activated PTTon 10-03-2019 aPTT Coag (Bld) [Time] 27.1 s Normal 23.0-32.4 [facility] Comment on above: Result Comment: Unfr actionated [...] laboratory APTT reagent in use throughout the [facility]. Performed By: #### A PTT #### [place] [id number] Hematologyon 10-03-2019 aPTT Coag (PPP) [Time] 27.1 s 23.0 - 32.4 sec [facility] INR Coag (PPP) [Relative time] 0.93 {INR} 0.90 - 1.30 [facility] PT Coag (PPP) [Time] 10.1 s 9.7 - 1 3.0 sec [facility] Hematocrit (Bld) [Volume fraction] 31.6 % Low 34.1 - 44.9 % [facility] Hemoglobin (Bld) [Mass/Vol] 9.9 g/dL Low 11.2 - 15.7 g/dL [facility] MCH (RBC) [Entitic mass] 28.9 pg 25.6 - 32.2 pg [facility] MCV (RBC) [Entitic vol] 92.1 fL 79.4 - 94.8 fl [facility] Platelets (Bld) [#/Vol] 502 thou/cmm High 182 - 369 thou/cmm [facility] RBC (Bld) [#/Vol] 3.43 mil/cmm Low 3.93 - 5.2 2 mil/cmm [facility] WBC (Bld) [#/Vol] 13.18 thou/cmm High 3.98 - 1 0.04 thou/cmm [facility] Hemogramon 10-03-2019 Erythrocyte distribution width (RBC) [Ratio] 13.5 % Normal 11.7-14.4 [facility] Comment on above: Performed By: #### C BC1 #### [place] [address] Hematocrit (Bld) [Volume fraction] 31.6 % Low 34.1-44.9 [facility] Comment on above: Performed By: #### C BC1 #### [facility] [address] [place], [place] [address] Hemoglobin (Bld) [Mass/Vol] 9.9 g/dL Low 11.2-15.7 [facility] Comment on above: Performed By: #### C BC1 #### [facility] [address] [place], [place] [address] MCH (RBC) [Entitic mass] 28.9 pg Normal 25.6-32.2 [facility] Comment on above: Performed By: #### C BC1 #### [facility] [address] [place] [address] MCHC (RBC) [Mass/Vol] 31.3 % Low 31.6-34.8 [facility] Comment on above: Performed By: #### C BC1 #### [facility] [address] [place] [address] MCV (RBC) [Entitic vol] 92.1 fL Normal 79.4-94.8 [facility] Comment on above: Performed By: #### C BC1 #### [facility] [address] [place] [address] Platelet mean volume (Bld) [Entitic vol] 10.8 fL Normal 9.4-12.3 [facility] Comment on above: Performed By: #### C BC1 #### [facility] [address] [place], [place] [address] Platelets (Bld) [#/Vol] 502 thou/cmm High 182-369 [facility] Comment on above: Performed By: #### C BC1 #### [facility] [address] [place], [place] [address] RBC (Bld) [#/Vol] 3.43 mil/cmm Low 3.93-5.22 [facility] Comment on above: Performed By: #### C BC1 #### [facility] [address] [place], [place] [address] RDW SD 45.1 fl Normal 36.4-46.3 [facility] Comment on above: Performed By: #### C BC1 #### [facility] [address] [place], [place] [address] WBC (Bld) [#/Vol] 13.18 thou/cmm High 3.98-10.04 [facility] Comment on above: Performed By: #### C BC1 #### [facility] [address] [place], [place] [address] Otheron 10-03-2019 Erythrocyte distribution width (RBC) [Entitic vol] 45.1 fL 36.4 - 46.3 fl [facility] Erythrocyte distribution width (RBC) [Ratio] 13.5 % 11.7 - 14.4 % [facility] MCHC (RBC) [Mass/Vol] 31.3 % Low 31.6 - 34.8 % [facility] Platelet mean volume (Bld) [Entitic vol] 10.8 fL 9.4 - 12.3 fl [facility] Protimeon 10-03-2019 INR Coag (PPP) [Relative time] 0.93 {INR} Normal 0.90-1.30 [facility] Comment on above: Result Comment: Haylee min K Antagonist (VKA) Therapeutic Range: INR 2 to 3 (Target INR of 2.5) Note: For patients treated with VKA drugs, such as warfarin, the [place] [employer] 2012 Guideline recommends [...] Naveen GH, et al. Chest 2012; 141:7S-47S naya Alves RA al. JACC 2017; 70: 252-289 Performed By: #### P T #### [facility] [address] [place], [place] [address] PT Coag (PPP) [Time] 10.1 s Normal 9.7-13.0 [facility] Comment on above: Performed By: #### P T #### [facility] [address] [place] [address] US RETROPERITONEAL COMPLETEo n 07-24-2019 Patient Name: APOORVA GONZALEZ ---Ultrasound--- Exam Date/Time 07/24/2019 15:50:07 EDT Exam US Retroperitoneal Complete Ordering Physician CHRISTIANO GROVE Accession Number [id number] CPT4 Codes 95672 () Reason For Exam stage 4 kid [...] R Transcribed Date and Time: 07/24/2019 3:25 [facility]- [place], [place], [facility] Incoming Radiology Results From [facility] - 07/24/2019 3:50 PM EDT Patient Name: APOORVA GONZALEZ ---Ultrasound--- Exam Date/Time 07/24/2019 15:50:07 EDT Exam US Retroperitoneal Complete Ordering Physician CHRISTIANO GROVE Accession Number [id number] CPT4 Codes 87999 () Reason For Exam stage 4 kid [...] R Transcribed Date and Time: 07/24/2019 3:25 [place], [place] Vital Signs Date Time Vital Sign Value Performing Clinician Facility 12-28-2024 10:00-0400 Body temperature 98.71 [degF] Brown Martinezya DO Work Phone: [facility] 12-28-2024 10:00-0400 Diastolic blood pressure 76 mm[Hg] Beatrizquinn Natasha DO Work Phone: [facility] 12-28-2024 10:00-0400 Heart rate 91 /min Brown Natasha DO Work Phone: [facility] 12-28-2024 10:00-0400 Respiratory rate 14 /min Brown Martinezya DO Work Phone: [facility] 12-28-2024 10:00-0400 SaO2% (BldA) [Mass fraction] 100 % Brown Martinezya DO Work Phone: [facility] 12-28-2024 10:00-0400 Systolic blood pressure 162 mm[Hg] Brown Kaur DO Work Phone: [facility] 12-20-2024 17:50-0400 Body temperature 98.01 [degF] Mason Munson MD Work Phone: [facility] 12-20-2024 17:50-0400 Diastolic blood pressure 78 mm[Hg] Mason Munson MD Work Phone: [facility] 12-20-2024 17:50-0400 Heart rate 101 /min Mason Munson MD Work Phone: [facility] 12-20-2024 17:50-0400 Respiratory rate 16 /min Mason Munson MD Work Phone: [facility] 12-20-2024 17:50-0400 SaO2% (BldA) [Mass fraction] 98 % Mason Munson MD Work Phone: [facility] 12-20-2024 17:50-0400 Systolic blood pressure 182 mm[Hg] Mason Munson MD Work Phone: [facility] 12-11-2024 20:45-0400 SaO2% (BldA) [Mass fraction] 85.3 % Mason Munson MD Work Phone: [facility] 12-11-2024 10:14-0400 Body mass index (BMI) [Ratio] 19.61 kg/m2 Mason Munson MD Work Phone: [facility] 12-11-2024 10:14-0400 Body weight 52.75 kg Mason Munson MD Work Phone: [facility] 12-11-2024 06:46-0400 Body height 164 cm Mason Munson MD Work Phone: [facility] 12-06-2024 10:54-0400 Body height 162.6 cm Raffy Rojas MD Work Phone: [facility] 12-06-2024 10:54-0400 Body mass index (BMI) [Ratio] 17.68 kg/m2 Raffy Rojas MD Work Phone: [facility] 12-06-2024 10:54-0400 Body weight 46.72 kg Raffy Rojas MD Work Phone: [facility] 12-06-2024 10:54-0400 Heart rate 94 /min Raffy Rojas MD Work Phone: [facility] 12-06-2024 10:54-0400 Respiratory rate 18 /min Raffy Rojas MD Work Phone: [facility] 12-06-2024 10:54-0400 SaO2% (BldA) [Mass fraction] 98 % Raffy Rojas MD Work Phone: [facility] 11-27-2024 15:46-0400 Body height 162.6 cm Raffy Rojas MD Work Phone: [facility] 11-27-2024 15:46-0400 Body mass index (BMI) [Ratio] 17.68 kg/m2 Raffy Rojas MD Work Phone: [facility] 11-27-2024 15:46-0400 Body weight 46.72 kg Raffy Rojas MD Work Phone: [facility] 11-27-2024 15:46-0400 Heart rate 70 /min Raffy Rojas MD Work Phone: [facility] 11-27-2024 15:46-0400 Respiratory rate 18 /min Raffy Rojas MD Work Phone: [facility] 11-27-2024 15:46-0400 SaO2% (BldA) [Mass fraction] 97 % Raffy Rojas MD Work Phone: [facility] 11-22-2024 18:08-0400 Diastolic blood pressure 88 mm[Hg] Kev Warner MD Work Phone: [facility] 11-22-2024 18:08-0400 Heart rate 85 /min Kev Warner MD Work Phone: [facility] 11-22-2024 18:08-0400 Respiratory rate 20 /min Kev Warner MD Work Phone: [facility] 11-22-2024 18:08-0400 Systolic blood pressure 149 mm[Hg] Kev Warner MD Work Phone: [facility] 11-22-2024 15:57-0400 Body height 162.6 cm Kev Warner MD Work Phone: [facility] 11-22-2024 15:57-0400 Body mass index (BMI) [Ratio] 17.68 kg/m2 Kev Warner MD Work Phone: [facility] 11-22-2024 15:57-0400 Body temperature 97.39 [degF] Kev Warner MD Work Phone: [facility] 11-22-2024 15:57-0400 Body weight 46.72 kg Kev Warner MD Work Phone: [facility] 11-22-2024 15:57-0400 SaO2% (BldA) [Mass fraction] 100 % Kev Warner MD Work Phone: [facility] 11-15-2024 11:15-0400 Body temperature 98.1 [degF] CHAPARRO Moore MD Work Phone: [facility] 11-15-2024 11:15-0400 Diastolic blood pressure 73 mm[Hg] CHAPARRO Moore MD Work Phone: [facility] 11-15-2024 11:15-0400 Heart rate 61 /min CHAPARRO Moore MD Work Phone: [facility] 11-15-2024 11:15-0400 Respiratory rate 16 /min CHAPARRO Moore MD Work Phone: [facility] 11-15-2024 11:15-0400 SaO2% (BldA) [Mass fraction] 100 % CHAPARRO Moore MD Work Phone: [facility] 11-15-2024 11:15-0400 Systolic blood pressure 150 mm[Hg] CHAPARRO Moore MD Work Phone: [facility] 11-15-2024 04:48-0400 Body mass index (BMI) [Ratio] 18.76 kg/m2 CHAPARRO Moore MD Work Phone: [facility] 11-15-2024 04:48-0400 Body weight 49.58 kg CHAPARRO Moore MD Work Phone: [facility] 11-14-2024 06:25-0400 Body height 162.6 cm CHAPARRO oMore MD Work Phone: [facility] 11-11-2024 13:12-0400 Body temperature 97.59 [degF] Veronica Abebe MD Work Phone: [facility] 11-11-2024 13:12-0400 Diastolic blood pressure 80 mm[Hg] Veronica Abebe MD Work Phone: [facility] 11-11-2024 13:12-0400 Heart rate 87 /min Veronica Abebe MD Work Phone: [facility] 11-11-2024 13:12-0400 Respiratory rate 16 /min Veronica Abebe MD Work Phone: [facility] 11-11-2024 13:12-0400 SaO2% (BldA) [Mass fraction] 100 % Veronica Abebe MD Work Phone: [facility] 11-11-2024 13:12-0400 Systolic blood pressure 154 mm[Hg] Veronica Abebe MD Work Phone: [facility] 11-10-2024 06:00-0400 Body mass index (BMI) [Ratio] 20.13 kg/m2 Veronica Abebe MD Work Phone: [facility] 11-10-2024 06:00-0400 Body weight 53.2 kg Veronica Abebe MD Work Phone: [facility] 10-26-2024 14:38-0400 Body height 162.6 cm Veronica Abebe MD Work Phone: [facility] 09-06-2024 16:42-0400 Body temperature 100.2 [degF] Carine Mejia DO Work Phone: [facility] 09-06-2024 16:42-0400 Diastolic blood pressure 71 mm[Hg] Carine Mejia DO Work Phone: [facility] 09-06-2024 16:42-0400 Heart rate 110 /min Carine Mejia DO Work Phone: [facility] 09-06-2024 16:42-0400 Respiratory rate 16 /min Carine Mejia DO Work Phone: [facility] 09-06-2024 16:42-0400 SaO2% (BldA) [Mass fraction] 100 % Carine Mejia DO Work Phone: [facility] 09-06-2024 16:42-0400 Systolic blood pressure 157 mm[Hg] Carine Mejia DO Work Phone: [facility] 08-31-2024 01:34-0400 Body height 163 cm Carine Mejia DO Work Phone: [facility] 08-31-2024 01:34-0400 Body mass index (BMI) [Ratio] 19.5 kg/m2 Carine Mejia DO Work Phone: [facility] 08-31-2024 01:34-0400 Body weight 51.8 kg Carine Mejia DO Work Phone: [facility] 07-17-2024 21:10-0400 Body temperature 98.8 [degF] Rivas Pal-Nuubouever DO Work Phone: [employer] 07-17-2024 20:32-0400 Diastolic blood pressure 73 mm[Hg] Rivas Wilsonway-Nuubouever DO Work Phone: [employer] 07-17-2024 20:32-0400 Heart rate 92 /min Rivas Flickrway-Nuubouever DO Work Phone: [employer] 07-17-2024 20:32-0400 Respiratory rate 16 /min Rivas Flickrtru-Nuubouever DO Work Phone: [employer] 07-17-2024 20:32-0400 SaO2% (BldA) [Mass fraction] 98 % Rivas [employer]ess [employer]angy DO Work Phone: [facility] 07-17-2024 20:32-0400 Systolic blood pressure 127 mm[Hg] Rivas FlickrtruScalingDataangy DO Work Phone: [facility] 07-17-2024 14:07-0400 Body mass index (BMI) [Ratio] 19.74 kg/m2 Rivas [employer] Work Phone: [facility] 07-17-2024 14:07-0400 Body weight 52.16 kg Rivas Ness Computingangy DO Work Phone: [facility] 06-29-2024 19:34-0400 Diastolic blood pressure 84 mm[Hg] Veronica Abebe MD Work Phone: [facility] 06-29-2024 19:34-0400 Heart rate 84 /min Veronica Abebe MD Work Phone: [facility] 06-29-2024 19:34-0400 Respiratory rate 18 /min Veronica Abebe MD Work Phone: [facility] 06-29-2024 19:34-0400 SaO2% (BldA) [Mass fraction] 100 % Veronica Abebe MD Work Phone: [facility] 06-29-2024 19:34-0400 Systolic blood pressure 166 mm[Hg] Veronica Abebe MD Work Phone: [facility] 06-29-2024 17:56-0400 Body temperature 97.7 [degF] Veronica Abebe MD Work Phone: [facility] 06-29-2024 06:01-0400 Body height 162.6 cm Veronica Abebe MD Work Phone: [facility] 06-29-2024 06:01-0400 Body mass index (BMI) [Ratio] 19.22 kg/m2 Veronica Abebe MD Work Phone: [employer] 06-29-2024 06:01-0400 Body weight 50.8 kg Veronica Abebe MD Work Phone: [employer] 06-09-2024 13:36-0500 Body height 162.6 cm Roxie Judit Work Phone: [employer] 06-09-2024 13:36-0500 Body mass index (BMI) [Ratio] 19.22 kg/m2 Roxie Judit Work Phone: [employer] 06-09-2024 13:36-0500 Body weight 50.8 kg Roxie Judit Work Phone: [employer] 03-03-2024 19:56-0500 Body temperature 97.5 [degF] Marcus Gombash DO Work Phone: [employer] 03-03-2024 19:56-0500 Diastolic blood pressure 81 mm[Hg] Marcus Gombash DO Work Phone: [employer] 03-03-2024 19:56-0500 Heart rate 91 /min Marcus Gombash DO Work Phone: [employer] 03-03-2024 19:56-0500 Respiratory rate 16 /min Marcus Gombash DO Work Phone: [employer] 03-03-2024 19:56-0500 SaO2% (BldA) [Mass fraction] 96 % Marcus Gombash DO Work Phone: [employer] 03-03-2024 19:56-0500 Systolic blood pressure 168 mm[Hg] Marcus Gombash DO Work Phone: [employer] 03-03-2024 04:14-0500 Body mass index (BMI) [Ratio] 18.09 kg/m2 Marcus Gombash DO Work Phone: [employer] 03-03-2024 04:14-0500 Body weight 47.81 kg Marcus Gombash DO Work Phone: [facility] 03-02-2024 09:56-0500 Body height 162.6 cm Marcus Gombash DO Work Phone: [facility] 02-20-2024 15:07-0500 Body temperature 98.29 [degF] Cassie Mace DO Work Phone: [facility] 02-20-2024 15:07-0500 Diastolic blood pressure 72 mm[Hg] Cassie Glassworth DO Work Phone: [facility] 02-20-2024 15:07-0500 Heart rate 87 /min Cassie Glassworth DO Work Phone: [facility] 02-20-2024 15:07-0500 Respiratory rate 16 /min Cassie Mace DO Work Phone: [facility] 02-20-2024 15:07-0500 SaO2% (BldA) [Mass fraction] 94 % Cassie Mace DO Work Phone: [facility] 02-20-2024 15:07-0500 Systolic blood pressure 151 mm[Hg] Cassie Glassworth DO Work Phone: [facility] 02-20-2024 00:00-0500 Body mass index (BMI) [Ratio] 18.37 kg/m2 Cassie Glassworth DO Work Phone: [facility] 02-20-2024 00:00-0500 Body weight 48.53 kg Cassie Glassworth DO Work Phone: [facility] 02-19-2024 21:01-0500 Body height 162.6 cm Cassie Glassworth DO Work Phone: [facility] 02-12-2024 14:21-0500 Body temperature 97.7 [degF] Marcus Gombash DO Work Phone: [facility] 02-12-2024 14:21-0500 Diastolic blood pressure 71 mm[Hg] Marcus Gombash DO Work Phone: [facility] 02-12-2024 14:21-0500 Heart rate 87 /min Marcus Gombash DO Work Phone: [facility] 02-12-2024 14:21-0500 Respiratory rate 14 /min Marcus Gombash DO Work Phone: [facility] 02-12-2024 14:21-0500 SaO2% (BldA) [Mass fraction] 96 % Marcus Gombash DO Work Phone: [facility] 02-12-2024 14:21-0500 Systolic blood pressure 153 mm[Hg] [facility] 01-25-2024 16:23-0400 Body temperature 97.9 [degF] Mejgon Natasha DO [facility] 01-25-2024 16:23-0400 Diastolic blood pressure 77 mm[Hg] Mejgon Natasha DO Work Phone: [facility] 01-25-2024 16:23-0400 Heart rate 107 /min Mejgon Natasha DO [facility] 01-25-2024 16:23-0400 Respiratory rate 18 /min Mejgon Natasha DO Work Phone: [facility] 01-25-2024 16:23-0400 SaO2% (BldA) [Mass fraction] 99 % Mejgon Natasha DO Work Phone: [facility] 01-25-2024 16:23-0400 Systolic blood pressure 158 mm[Hg] Mejgon Natasha DO Work Phone: [employer] 01-25-2024 08:27-0400 Body height 162.6 cm Mejgon Natasha DO Work Phone: [employer] 01-25-2024 08:27-0400 Body mass index (BMI) [Ratio] 19.74 kg/m2 Mejgon Natasha DO Work Phone: [facility] 01-25-2024 08:27-0400 Body weight 52.16 kg Brown Kaur DO Work Phone: [facility] 08-09-2023 20:40-0400 Diastolic blood pressure 75 mm[Hg] Samuel Lmla DO Work Phone: [facility] 08-09-2023 20:40-0400 Heart rate 82 /min Samuel Amatola DO Work Phone: [facility] 08-09-2023 20:40-0400 Respiratory rate 18 /min Samuel Amatola DO Work Phone: [facility] 08-09-2023 20:40-0400 SaO2% (BldA) [Mass fraction] 100 % Samuel Amatola DO Work Phone: [facility] 08-09-2023 20:40-0400 Systolic blood pressure 147 mm[Hg] Samuel Amatola DO Work Phone: [facility] 08-09-2023 20:02-0400 Body temperature 97.59 [degF] Samuel Amatola DO Work Phone: [facility] 08-09-2023 15:43-0400 Body height 162.6 cm Samuel Amatola DO Work Phone: [facility] 08-09-2023 15:43-0400 Body mass index (BMI) [Ratio] 18.88 kg/m2 Samuel Amatola DO Work Phone: [facility] 08-09-2023 15:43-0400 Body weight 49.9 kg Samuel Amatola DO Work Phone: [facility] 03-03-2023 08:32-0500 Body temperature 97.81 [degF] Alvarado Bonyo DO Work Phone: [facility] 03-03-2023 08:32-0500 Diastolic blood pressure 72 mm[Hg] Alvarado Bonyo DO Work Phone: [facility] 03-03-2023 08:32-0500 Heart rate 88 /min Alvarado Bonyo DO Work Phone: [facility] 03-03-2023 08:32-0500 Respiratory rate 18 /min Alvarado Bonyo DO Work Phone: [facility] 03-03-2023 08:32-0500 SaO2% (BldA) [Mass fraction] 96 % Alvarado Bonyo DO Work Phone: [facility] 03-03-2023 08:32-0500 Systolic blood pressure 143 mm[Hg] Alvarado Bonyo DO Work Phone: [facility] 01-12-2023 11:18-0400 Body height 162.6 cm Alvarado Bonyo DO Work Phone: [facility] 01-12-2023 11:18-0400 Body mass index (BMI) [Ratio] 19.74 kg/m2 Alvarado Bonyo DO Work Phone: [facility] 01-12-2023 11:18-0400 Body weight 52.16 kg Alvarado Bonyo DO Work Phone: [facility] 10-01-2022 12:05-0400 Body mass index (BMI) [Ratio] 19.57 kg/m2 Mak Hilario MD Work Phone: [facility] 10-01-2022 12:05-0400 Body temperature 97.7 [degF] Mak Hilario MD Work Phone: [facility] 10-01-2022 12:05-0400 Body weight 51.71 kg Mak Hilario MD Work Phone: [facility] 10-01-2022 12:05-0400 Diastolic blood pressure 75 mm[Hg] Mak Hilario MD Work Phone: [facility] 10-01-2022 12:05-0400 Heart rate 81 /min Mak Hilario MD Work Phone: [facility] 10-01-2022 12:05-0400 Respiratory rate 14 /min Mak Hilario MD Work Phone: [facility] 10-01-2022 12:05-0400 SaO2% (BldA) [Mass fraction] 98 % Mak Hilario MD Work Phone: [facility] 10-01-2022 12:05-0400 Systolic blood pressure 139 mm[Hg] Mak Hilario MD Work Phone: [facility] 08-07-2022 14:00-0400 Diastolic blood pressure 65 mm[Hg] Raffy Rojas MD Work Phone: [facility] 08-07-2022 14:00-0400 Heart rate 73 /min Raffy Rojas MD Work Phone: [facility] 08-07-2022 14:00-0400 Respiratory rate 11 /min Raffy Rojas MD Work Phone: [facility] 08-07-2022 14:00-0400 SaO2% (BldA) [Mass fraction] 100 % Raffy Rojas MD Work Phone: [facility] 08-07-2022 14:00-0400 Systolic blood pressure 108 mm[Hg] Raffy Rojas MD Work Phone: [facility] 08-07-2022 13:30-0400 Body temperature 97.7 [degF] Raffy Rojas MD Work Phone: [facility] 08-07-2022 08:15-0400 Body height 162.6 cm Raffy Rojas MD Work Phone: [facility] 08-07-2022 08:15-0400 Body mass index (BMI) [Ratio] 18.88 kg/m2 Raffy Rojas MD Work Phone: [facility] 08-07-2022 08:15-0400 Body weight 49.9 kg Raffy Rojas MD Work Phone: [facility] 06-24-2022 09:35-0400 Body height 162.6 cm Raffy Rojas MD Work Phone: [facility] 06-24-2022 09:35-0400 Body mass index (BMI) [Ratio] 19.57 kg/m2 Raffy Rojas MD Work Phone: [facility] 06-24-2022 09:35-0400 Body weight 51.71 kg Raffy Rojas MD Work Phone: [facility] 06-24-2022 09:35-0400 Diastolic blood pressure 75 mm[Hg] Raffy Rojas MD Work Phone: [facility] 06-24-2022 09:35-0400 Heart rate 90 /min Raffy Rojas MD Work Phone: [facility] 06-24-2022 09:35-0400 Systolic blood pressure 130 mm[Hg] Raffy Rojas MD Work Phone: [facility] 10-25-2019 09:48-0400 BP Diastolic 90 mm[Hg] [facility] 10-25-2019 09:48-0400 BP Systolic 123 mm[Hg] [facility] 10-25-2019 09:48-0400 Pulse (Heart Rate) 71 /min [facility]iel 10-25-2019 09:48-0400 Pulse Oximetry 100 % [facility] 10-25-2019 09:48-0400 Respiratory Rate 16 /min [facility] 10-25-2019 07:35-0400 Body Temperature 97 [degF] [facility] 10-25-2019 07:35-0400 Body weight 57.61 kg [facility] 10-25-2019 07:35-0400 Height 162.6 cm [facility] Encounters Encounter Date Encounter Type Care Provider Facility Start: 01-29-2025 ambulatory Mahaveer Mukka ismael OLS Facility:[facility] Start: 01-26-2025 ambulatory Mahaveer Mukka ismael OLS Facility:[facility] Start: 01-25-2025 ambulatory Mahaveer Mukka ismael OLS Facility:[facility] Start: 01-09-2025 End: 01-09-2025 ambulatory Mahaveer Mukkamalla OLS Facility:[facility] Start: 01-05-2025 End: 01-05-2025 ambulatory [facility] Facility:[facility] Start: 12-28-2024 End: 12-28-2024 Emergency department patient visit Brown Kaur DO Work Phone: [facility] Comment on above: Transient alteration of awareness (Primary Dx) Start: 12-25-2024 End: 12-25-2024 ambulatory [facility] OLS Facility:[facility] Start: 12-08-2024 End: 12-20-2024 Evaluation and management of inpatient Mason Munson MD Work Phone: [facility] Acute Care of the Elderly [facility] 6W Start: 12-06-2024 End: 12-06-2024 Preprocedural examination done Raffy Rojas MD Work Phone: [facility] Start: 12-06-2024 End: 12-06-2024 Subsequent hospital visit by physician Raffy Rojas MD Work Phone: [facility] [address] [facility] Comment on above: ESRD (end stage bladimir l disease) on dialysis (HCC); Preop examination Start: 12-06-2024 End: [facility]06[facility] Start: 12-06-2024 End: 12-06-2024 [facility] Start: 12-06-2024 End: 12-06-2024 Postop follow up visit related to original px Raffy Rojas MD Work Phone: [facility] [place] Comment on above: ESRD (end stage bladimir l disease) on dialysis (HCC) (Primary Dx) Start: 12-06-2024 End: 12-06-2024 ambulatory ROXIE JUDIT [facility] Start: 12-05-2024 End: 12-05-2024 [facility]ulatory [facility] Start: 11-30-2024 End: 11-30-2024 ambulatory [facility] OLS Facility:[facility] Start: 11-27-2024 End: 11-27-2024 ambulatory ROXIE JUDIT [facility] Start: 11-27-2024 End: 11-27-2024 Postop follow up visit related to original px Raffy Roajs MD Work Phone: [facility] [place] Comment on above: ESRD (end stage bladimir l disease) on dialysis (HCC) (Primary Dx) Start: 11-22-2024 End: 11-22-2024 Emergency department patient visit Kev Warner MD Work Phone: [facility] Comment on above: Anemia of chronic di sease (Primary Dx) Start: 11-22-2024 ambulatory [facility]ue[facility]a [facility] Facility:[facility] Start: 11-16-2024 End: 11-16-2024 Orders Only Kellee Gonzalez RN [facility] Palliative [facility] - [place] Comment on above: End stage congestive heart failure (HCC) (Primary Dx); ESRD (end stage renal disease) (HCC) Start: 11-12-2024 End: 11-15-2024 ambulatory FELIBERTO KAMINSKI [facility] Start: 11-12-2024 End: 11-15-2024 Evaluation and management of inpatient J Ann Moore MD Work Phone: [facility] Cardiac Vascular Progressive Care Unit PCC 1C Comment on above: Wound dehiscence (Pr imary Dx); Anemia due to other cause, not classified; End stage congestive heart failure (HCC); Seizures (HCC); Pressure ulcer of left buttock, stage 3 (HCC) Start: 10-22-2024 End: 11-11-2024 Evaluation and management of inpatient Veronica Abebe MD Work Phone: [facility] Acute Care of the Elderly [facility] 6W Start: 09-13-2024 End: 10-12-2024 Evaluation and management of inpatient [facility] Start: 08-30-2024 End: 09-06-2024 Evaluation and management of inpatient Carine Jose Mejia DO Work Phone: [facility] [place] [facility] Comment on above: Hematoma (Primary Dx ) Start: 08-26-2024 End: 08-30-2024 Evaluation and management of inpatient BICAKODAK VERA BICAKODAK DO~[id number] [facility] Start: 08-14-2024 End: 08-24-2024 Evaluation and management of inpatient YONY BHAKTA DO~[id number] [facility] Start: 07-17-2024 End: 07-17-2024 Emergency department patient visit Rivas WilsonkayMeghana DO Work Phone: [facility] EMERGENCY DEPT Comment on above: Adverse effect of dr sue, initial encounter (Primary Dx) Start: 06-29-2024 End: 06-29-2024 Emergency department patient visit Veronica Abebe MD Work Phone: [facility] EMERGENCY DEPT Comment on above: Myoclonus (Primary D x); Fall, initial encounter; Hyperkalemia Start: 06-09-2024 End: 06-09-2024 Subsequent hospital visit by physician Roxie pSain Work Phone: [facility] Comment on above: Encounter for screen ing mammogram for malignant neoplasm of breast Start: 06-09-2024 End: 06-09-2024 ambulatory ROXIE CAY [facility] Start: 05-23-2024 End: 05-23-2024 Emergency department patient visit NIKHIL TEJEDA DO~[id number] [facility] Start: 03-02-2024 End: 03-03-2024 ambulatory MAGALYS CAN [facility] Start: 03-02-2024 End: 03-03-2024 Emergency department patient visit Marcus Joann Ragland DO Work Phone: [facility] Cardiac Progressive Care Unit PCU 5W Comment on above: Shortness of breath (Primary Dx); Acute pulmonary edema (HCC); Hyperkalemia Start: 02-19-2024 End: 02-20-2024 Evaluation and management of inpatient Cassie Mace DO Work Phone: [facility] Cardiac Progressive Care Unit PCU 5W Comment on above: Pulmonary edema, acu te (HCC) (Primary Dx) Start: 02-12-2024 End: 02-12-2024 Emergency department patient visit Marcus A Mamadou HART Work Phone: [facility] EMERGENCY DEPT Comment on above: Hypertension, unspec ified type (Primary Dx) Start: 01-19-2024 End: 01-25-2024 Evaluation and management of inpatient Brown Kaur DO Work Phone: [facility] Acute Care of the Elderly [facility] 6W Comment on above: Gastrointestinal hem orrhage, unspecified gastrointestinal hemorrhage type (Primary Dx); Anemia, unspecified type Start: 08-09-2023 End: 08-09-2023 Emergency department patient visit Samuel Velasquez DO Work Phone: [facility] EMERGENCY DEPT Comment on above: Hyperkalemia (Primar y Dx) Start: 06-25-2023 End: 09-24-2023 Transcribe Orders Radha Meza MD Work Phone: [facility] Comment on above: End stage renal dise ase (HCC) (Primary Dx) Start: 03-03-2023 End: 03-03-2023 Emergency department patient visit Christiano Grove DO Work Phone: [facility] EMERGENCY DEPT Comment on above: ESRD on hemodialysis (CMS/HCC) (HCC) (Primary Dx) Start: 03-03-2023 End: 03-03-2023 Subsequent hospital visit by physician Nandini Ecg [facility] Non-Invasive Cardiology Comment on above: Arrived Start: 01-12-2023 End: 01-12-2023 Subsequent hospital visit by physician Christiano Grove DO Work Phone: [facility] Comment on above: Encounter for screen ing mammogram for malignant neoplasm of breast Start: 10-01-2022 Telephone encounter Katherin Salinas RN [facility] Special Procedures Start: 10-01-2022 End: 10-01-2022 Emergency department patient visit Mak Hilario MD Work Phone: [facility] EMERGENCY DEPT Comment on above: Hematoma (Primary Dx ); Bleeding from wound Start: 09-30-2022 End: 09-30-2022 Evaluation and management of inpatient Radha Meza MD Work Phone: [facility] Special Procedures Comment on above: End stage renal dise ase (HCC) Start: 09-28-2022 Transcribe Orders Radha steven MD Work Phone: [facility] Comment on above: End stage renal dise ase (HCC) (Primary Dx) Start: 08-07-2022 End: 08-07-2022 Subsequent hospital visit by physician Raffy Rojas MD Work Phone: [facility] MAIN OR Comment on above: S/P arteriovenous (A V) graft placement (Primary Dx) Start: 07-17-2022 ambulatory Tevin Hodgson [employer] Work Phone: [facility] Start: 07-17-2022 End: 07-17-2022 Subsequent hospital visit by physician Raffy Rojas MD Work Phone: [facility] MAIN OR Start: 07-10-2022 Telephone encounter Maria R perez MD Work Phone: [facility] Internal Med Start: 07-01-2022 Telephone encounter Raffy smith MD Work Phone: [facility] Comment on above: Surgery Scheduling Start: 06-24-2022 End: 06-24-2022 Office outpatient new 45 minutes Raffy Rojas MD Work Phone: [facility] Comment on above: ESRD (end stage bladimir l disease) (HCC) (Primary Dx) Start: 06-03-2022 ambulatory CARLOS MANUEL WANG Facility: [facility] Start: 06-03-2022 End: 06-03-2022 Subsequent hospital visit by physician Us Lugo 1 [facility] Comment on above: End stage renal dise ase [N18.6] Start: 10-25-2019 End: 10-25-2019 Subsequent hospital visit by physician Jose Antonio Adams Work Phone: [facility] Comment on above: Chronic kidney [...] 12-28-2024 Glucose quantitative blood xcpt reagent strip rozjason Kaur DO Work Phone: Start: 12-20-2024 Glucose quantitative blood xcpt reagent strip Mo Vieira MD Work Phone: Start: 12-20-2024 Glucose quantitative blood xcpt reagent strip Mo Vieira MD Work Phone: Start: 12-20-2024 End: 12-20-2024 Comprehensive metabolic panel Leticia Malissa DO Work Phone: Start: 12-19-2024 End: 12-19-2024 Glucose quantitative blood xcpt reagent strip Mo Vieira MD Work Phone: Start: 12-19-2024 Blood count hematocrit Kev Urias MD Work Phone: Start: 12-19-2024 Comprehensive metabo lic panel Leticia Estevezntire DO Work Phone: Start: 12-18-2024 Blood count hematocrit Kev Urias MD Work Phone: Start: 12-18-2024 End: 12-18-2024 Mri brain brain stem w/o contrast material Leticia Malissa DO Work Phone: Start: 12-18-2024 Blood count hematocrit Kev Urias MD Work Phone: Start: 12-18-2024 Glucose quantitative blood xcpt reagent strip Leticia Malissa DO Work Phone: Start: 12-18-2024 Comprehensive metabo lic panel Leticia Malissa DO Work Phone: Start: 12-18-2024 Glucose quantitative blood xcpt reagent strip Leticia Malissa DO Work Phone: Start: 12-17-2024 Blood count hematocrit Kev Urias MD Work Phone: Start: 12-17-2024 Glucose quantitative blood xcpt reagent strip Leticia Rhodesire DO Work Phone: Start: 12-17-2024 Compatibility each u nit electronic Leticia Leonardo DO Work Phone: Start: 12-17-2024 End: 12-17-2024 Comprehensive metabolic panel Leticia Rhodesire DO Work Phone: Start: 12-17-2024 Blood count complete automated Leticia Rhodesire DO Work Phone: Start: 12-16-2024 Comprehensive metabo lic panel Leticia Rhodesire DO Work Phone: Start: 12-16-2024 Ct abdomen & pelvis w/o contrast material Leticia Rhodesire DO Work Phone: Start: 12-16-2024 Drug screen quantita tive vancomycin Radha Kuzmin DO Work Phone: Start: 12-16-2024 Comprehensive metabo lic panel Leticia Rhodesire DO Work Phone: Start: 12-15-2024 Glucose quantitative blood xcpt reagent strip Leticia Rhodesire DO Work Phone: Start: 12-15-2024 End: 12-15-2024 [...] on above: Performed By: #### L [id number] ####Civil Engineering Design Draftsperson: PHILLY FRANCO ([id number])[facility] ([facility])[address] [place] [address] Start: 12-14-2024 Blood typing serologic abo Ramonita Garnett CABLE SPLICER HELPER Start: 12-14-2024 End: 12-14-2024 Comprehensive metabolic panel Leticia Malissa DO Work Phone: Start: 12-14-2024 Blood count complete automated Leticia Malissa DO Work Phone: Start: 12-13-2024 Glucose quantitative blood xcpt reagent strip Leticia Malissa DO Work Phone: Start: 12-13-2024 Radex shoulder compl ete minimum 2 views Ramonita Garnett CABLE SPLICER HELPER Start: 12-13-2024 Glucose quantitative blood xcpt reagent strip Leticia Malissa DO Work Phone: Start: 12-13-2024 End: 12-13-2024 Glucose quantitative blood xcpt reagent strip Leticia Malissa DO Work Phone: Start: 12-13-2024 Basic metabolic pane l calcium total Ramonita Garnett CABLE SPLICER HELPER Start: 12-13-2024 Drug screen quantita tive vancomycin Leticia Malissa DO Work Phone: Start: 12-12-2024 Ct head/brain w/o co ntrast material Ramonita Garnett CABLE SPLICER HELPER Start: 12-12-2024 End: 12-12-2024 Glucose quantitative blood xcpt reagent strip Leticia Malissa DO Work Phone: Start: 12-12-2024 Glucose quantitative blood xcpt reagent strip Leticia Malissa DO Work Phone: Start: 12-12-2024 Radiologic exam ches t single view Ramonita Garnett CABLE SPLICER HELPER Start: 12-12-2024 Radiologic exam abdo men 1 view Ramonita Garnett CABLE SPLICER HELPER Start: 12-12-2024 Bacteria identified in Blood by Culture Radha Kevin DO Work Phone: Start: 12-12-2024 Comprehensive metabo lic panel Andrea Blas MD Work Phone: Start: 12-11-2024 Ct head/brain w/o co ntrast material Radha Kevin DO Work Phone: Start: 12-11-2024 Assay of lactate Radha parrmin DO Work Phone: Start: 12-11-2024 Blood gases any comb ination ph pco2 po2 co2 hco3 Radha Paredesmin DO Work Phone: Start: 12-11-2024 Ecg routine ecg w/le ast 12 lds trcg only w/o i&r Radha Paredesmin DO Work Phone: Start: 12-11-2024 Glucose [...] 12-09-2024 Compatibility each u nit electronic Angelica Shankss DO Work Phone: Start: 12-09-2024 End: 12-09-2024 TRANSFUSE RED BLOOD CELLS Angelica Hines D O Work Phone: Start: 12-08-2024 Antibody screen LOLI VIEIRA Comment on above: Performed By: #### L [id number] ####Civil Engineering Design Draftsperson: PHILLY FRANCO ([id number])[facility] ([facility])[address] [place] [address] Start: 12-08-2024 Blood typing serologic abo Angelica Hines DO Work Phone: Start: 12-08-2024 Comprehensive metabo lic panel Angelica Hines DO Work Phone: Start: 12-08-2024 Ct cervical spine w/ o contrast material Angelica Shankss DO Work Phone: Start: 12-08-2024 Ct head/brain w/o co ntrast material Angelica Hines DO Work Phone: Start: 12-06-2024 Duplex scan artl inf l&manolo o/f hemo compl bi std Raffy Rojas MD Work Phone: Start: 12-06-2024 Follow-up visit LOLI VIEIRA Start: 11-27-2024 Follow-up visit LOLI VIEIRA Start: 11-22-2024 Antibody screen LOLI VIEIRA Comment on above: Performed By: #### L [id number] ####Civil Engineering Design Draftsperson: DEANN MCKEE ([id number])[facility] [place] [address] Start: 11-22-2024 Basic metabolic pane l calcium total Kev Warner MD Work Phone: Start: 11-22-2024 Blood typing serologic abo Kev Warner MD Work Phone: Start: 11-13-2024 Blood count hematocrit Tevin Emanuel Claudebrannon SECURITY FLEX OFFICER - [employer] Work Phone: Start: 11-13-2024 Glucose quantitative blood [...] on above: Performed By: #### L [id number] ####Civil Engineering Design Draftsperson: PHILLY FRANCO ([id number])[facility] ([facility])[address] [place] [address] Start: 11-11-2024 Basic metabolic pane l calcium total Candy Baiko DO Work Phone: Start: 11-11-2024 Blood typing serologic abo Francisco Javier Somers MD Work Phone: Start: 11-10-2024 Basic metabolic pane l calcium total Candy Baiko DO Work Phone: Start: 11-09-2024 Blood count hematocrit Romain Jay Mariaelena CABLE SPLICER HELPER Work Phone: Start: 11-09-2024 Compatibility each u nit electronic Romain Meadows CABLE SPLICER HELPER Work Phone: Start: 11-09-2024 End: 11-09-2024 TRANSFUSE RED BLOOD CELLS Romain Thompson Mariaelena CABLE SPLICER HELPER Work Phone: Start: 11-09-2024 Antibody screen LOLI VIEIRA Comment on above: Performed By: #### L [id number] ####Civil Engineering Design Draftsperson: PHILLY FRANCO ([id number])[facility] ([facility])[address] [place] [address] Start: 11-09-2024 Basic metabolic pane l calcium total Candy Baiko DO Work Phone: Start: 11-09-2024 Blood typing serologic abo Francisco Javier Somers MD Work Phone: Start: 11-09-2024 Compatibility each u nit electronic Raffy Rojas MD Work Phone: Start: 11-08-2024 Glucose quantitative blood xcpt reagent strip Gerardrena AdairAshland DO Work Phone: Start: 11-08-2024 Basic metabolic [...] 11-05-2024 Compatibility each u nit electronic Romain Thompson Mariaelena CABLE SPLICER HELPER Work Phone: Start: 11-05-2024 End: 11-05-2024 TRANSFUSE RED BLOOD CELLS Romain Thompson Mariaelena CABLE SPLICER HELPER Work Phone: Start: 11-05-2024 Blood count hematocrit Romain Thompson Mariaelena CABLE SPLICER HELPER Work Phone: Start: 11-05-2024 Basic metabolic pane l calcium total [employer] DO Work Phone: Start: 11-05-2024 Blood typing serologic abo Francisco Javier Somers MD Work Phone: Start: 11-05-2024 Compatibility each u nit electronic Candy Baiko DO Work Phone: Start: 11-04-2024 Glucose quantitative blood xcpt reagent strip Candy Baiko DO Work Phone: Start: 11-04-2024 Blood count complete auto&auto difrntl wbc Candy Pixelapseko DO Work Phone: Start: 11-04-2024 Glucose quantitative blood xcpt reagent strip Candy Baiko DO Work Phone: Start: 11-03-2024 Glucose quantitative blood xcpt reagent strip Candy Baiko DO Work Phone: Start: 11-03-2024 Blood count hematocrit Candy Baiko DO Work Phone: Start: 11-03-2024 Glucose quantitative blood xcpt reagent strip Candy Baiko DO Work Phone: Start: 11-03-2024 Compatibility each u nit electronic Luther Robin MD Work Phone: Start: 11-03-2024 End: 11-03-2024 TRANSFUSE RED BLOOD CELLS Candy Denis DO Work Phone: Start: 11-03-2024 End: 11-03-2024 Basic metabolic panel calcium total Candy Denis DO Work Phone: Start: 11-03-2024 Glucose quantitative blood xcpt reagent strip Candy Denis DO Work Phone: Start: 11-02-2024 Glucose quantitative blood xcpt reagent strip Candy Denis DO Work Phone: Start: 11-02-2024 Glucose quantitative blood xcpt reagent strip Candy Denis DO Work Phone: Start: 11-02-2024 Blood count hematocrit Luther Robin MD Work Phone: Start: 11-02-2024 Glucose quantitative blood xcpt reagent strip Candy Denis DO Work Phone: Start: 11-02-2024 End: 11-02-2024 [...] metabolic pane l calcium total Ana Boyce SECURITY FLEX OFFICER - [employer] Work Phone: Start: 11-01-2024 Glucose quantitative blood [...] Glucose quantitative blood xcpt reagent strip Veronica Voalison DO Work Phone: Start: 11-01-2024 Basic metabolic pane l calcium total Ana Emanuel Austen SECURITY FLEX OFFICER - [employer] Work Phone: Start: 11-01-2024 Manual Differential panel - Blood Ana Emanuel Austen SECURITY FLEX OFFICER - [employer] Work Phone: Start: 11-01-2024 Glucose quantitative blood xcpt reagent strip Veronica Voalison DO Work Phone: Start: 10-31-2024 Glucose quantitative blood xcpt reagent strip Veronica Yuriy DO Work Phone: Start: 10-31-2024 Glucose quantitative blood xcpt reagent strip Veronica Yuriy DO Work Phone: Start: 10-31-2024 Glucose quantitative blood xcpt reagent strip Veronica Yuriy DO Work Phone: Start: 10-31-2024 Glucose quantitative blood xcpt reagent strip Isai Guillen MD Work Phone: Start: 10-31-2024 Basic metabolic pane l calcium total Ana M Boyce SECURITY FLEX OFFICER - [employer] Work Phone: Start: 10-31-2024 Manual Differential panel - Blood Ana M Boyce SECURITY FLEX OFFICER - [employer] Work Phone: Start: 10-31-2024 Glucose quantitative blood [...] 10-30-2024 Basic metabolic panel calcium total Ana Adelfo Austen SECURITY FLEX OFFICER - [employer] Work Phone: Start: 10-30-2024 Manual Differential panel - Blood Ana M Austen SECURITY FLEX OFFICER - [employer] Work Phone: Start: 10-29-2024 Glucose quantitative blood xcpt reagent strip Isai Guillen MD Work Phone: Start: 10-29-2024 Glucose quantitative blood xcpt reagent strip Isai Guillen MD Work Phone: Start: 10-29-2024 Glucose quantitative blood xcpt reagent strip Isai Guillen MD Work Phone: Start: 10-29-2024 Basic metabolic pane l calcium total Ana M Boyce SECURITY FLEX OFFICER - [employer] Work Phone: Start: 10-29-2024 Manual Differential panel - Blood Ana M Austen SECURITY FLEX OFFICER - [employer] Work Phone: Start: 10-29-2024 Glucose quantitative blood [...] End: 10-28-2024 Basic metabolic panel calcium total nAa Emanuel Austen SECURITY FLEX OFFICER - [employer] Work Phone: Start: 10-28-2024 Manual Differential panel - Blood Ana Emanuel Austen SECURITY FLEX OFFICER - [employer] Work Phone: Start: 10-28-2024 Glucose quantitative blood xcpt reagent strip Isai Guillen MD Work Phone: Start: 10-27-2024 Glucose quantitative blood xcpt reagent strip Isai Guillen MD Work Phone: Start: 10-27-2024 Glucose quantitative blood xcpt reagent strip Isai Guillen MD Work Phone: Start: 10-27-2024 Blood count hematocrit Ana Emanuel Austen SECURITY FLEX OFFICER - [employer] Work Phone: Start: 10-27-2024 Compatibility each u nit electronic Ana Boyce SECURITY FLEX OFFICER - [employer] Work Phone: Start: 10-27-2024 End: 10-27-2024 TRANSFUSE RED BLOOD CELLS Ana cramer SECURITY FLEX OFFICER - [employer] Work Phone: Start: 10-27-2024 Blood typing serologic abo Ana Boyce SECURITY FLEX OFFICER - [employer] Work Phone: Start: 10-27-2024 Glucose quantitative blood xcpt reagent strip Isai Guillen MD Work Phone: Start: 10-27-2024 Basic metabolic pane l calcium total Ana mEanuel Austen SECURITY FLEX OFFICER - [employer] Work Phone: Start: 10-27-2024 Manual Differential panel - Blood Ana Emanuel Austen SECURITY FLEX OFFICER - [employer] Work Phone: Start: 10-27-2024 Glucose quantitative blood xcpt reagent strip Isai Guillen MD Work Phone: Start: 10-26-2024 End: 10-26-2024 Basic metabolic panel calcium total Kaylin Luttmann DO Work Phone: Start: 10-26-2024 Drug screen quantita tive vancomycin Loni Zambrano MD Work Phone: Start: 10-26-2024 Manual differential performed [Presence] in Blood Kaylin Iversonttmann DO Work Phone: Start: 10-25-2024 Glucose quantitative blood xcpt reagent strip Isai Guillen MD Work Phone: Start: 10-25-2024 Glucose quantitative blood xcpt reagent strip Kaylin Thomas DO Work Phone: Start: 10-25-2024 Glucose quantitative blood xcpt reagent strip Kaylin Iversonttmann DO Work Phone: Start: 10-25-2024 Glucose quantitative blood xcpt reagent strip Kaylin Iversonttmann DO Work Phone: Start: 10-25-2024 Basic metabolic pane l calcium total Kaylin Iversonttmann DO Work Phone: Start: 10-25-2024 Manual differential performed [Presence] in Blood Kaylin Iversonttmann DO Work Phone: Start: 10-25-2024 Glucose quantitative blood xcpt reagent strip Kaylin Luttmann DO Work Phone: Start: 10-24-2024 Drug screen quantita tive vancomycin Kaylin Luttmann DO Work Phone: Start: 10-24-2024 Glucose quantitative [...] 10-24-2024 TRANSFUSE RED BLOOD CELLS Kaylin Thomas [employer] Work Phone: Start: 10-24-2024 End: 10-24-2024 Comprehensive metabolic panel Leandra David Modacruz Work Phone: Start: 10-24-2024 Manual differential performed [Presence] in Blood Leandra David Modacruz Work Phone: Start: 10-23-2024 Drug screen quantita [...] 6 Hours Per Day BICAKODAK VERA BICAKODAK DO~[id number] Start: 08-20-2024 Transfusion of Nonau tologous Red Blood Cells into Peripheral Vein, Percutaneous Approach BICAKODAK VERA BICAKODAK DO~[id number] Start: 08-17-2024 Extraction of Right Hip Muscle, Open Approach BICAKODAK VERA BICAKODAK DO~[id number] Start: 08-15-2024 Insertion of Infusio n Device into Superior Vena Cava, Percutaneous Approach BICAKODAK VERA BICAKODAK DO~[id number] Start: 08-15-2024 Performance of Urina ry Filtration, Intermittent, Less than 6 Hours Per Day BICAKODAK VERA BICAKODAK DO~[id number] Start: 08-15-2024 Respiratory Ventilat ion, 24-96 Consecutive Hours BICAKODAK VERA BICAKODAK DO~[id number] Start: 08-14-2024 Performance of Cardi ac Output, Single, Manual BICAKODAK VERA BICAKODAK DO~[id number] Start: 07-17-2024 Assay of troponin quantitative Victor [...] Glucose quantitative blood xcpt reagent strip John T. Mayes DO Work Phone: Start: 03-02-2024 Glucose quantitative blood xcpt reagent strip John T. Mayes DO Work Phone: Start: 03-02-2024 Assay [...] Start: 02-20-2024 Comprehensive metabo lic panel Radha Paredesmin DO Work Phone: Start: 02-19-2024 Iaadiadoo not otherw ise specified Radha Paredesmin DO Work Phone: Start: 02-19-2024 Comprehensive metabo lic panel Radha Paredesmin DO Work Phone: Start: 02-19-2024 Assay of troponin quantitative Radha Paredesmin DO Work Phone: Start: 02-19-2024 Smr prim src gram/gi emsa stain bct fungi/cell Radhajacquelyn Paredesmin DO Work Phone: Start: 02-19-2024 Bacteria identified in Blood by Culture Radha Paredesmin DO Work Phone: Start: 02-19-2024 Assay of lactate Radha Will parrmin DO Work Phone: Start: 02-19-2024 Respiratory pathogen s DNA and RNA panel - Nasopharynx by CHIQUIS with non-probe detection Radhajacquelyn Paredesmin DO Work Phone: Start: 02-19-2024 Assay [...] gastrointestin al blood loss imaging Mary Martinez [employer] Work Phone: Start: 01-24-2024 Blood count hematocrit Jessica Murphy DO Work Phone: Start: 01-24-2024 RBC leukocytes reduced Jessica Murphy DO Work Phone: Start: 01-24-2024 End: 01-24-2024 TRANSFUSE RED BLOOD CELLS Jessica J Nijeffry lopez DO Work Phone: Start: 01-24-2024 Blood typing serologic abo Jessica Courtney Katherine DO Work Phone: Start: 01-24-2024 Basic metabolic pane l calcium total Mounika Leslee Connell DO Work Phone: Start: 01-23-2024 Glucose quantitative blood xcpt reagent strip Ronald Schneider DO Work Phone: Start: 01-23-2024 Basic metabolic pane l calcium total Mounika Leslee Connell DO Work Phone: Start: 01-22-2024 Basic metabolic pane l calcium total Mounika Leslee Connell DO Work Phone: Start: 01-22-2024 Hepatitis b [...] Basic metabolic panel calcium total Jessica Courtney Katherine DO Work Phone: Start: 01-20-2024 Blood count hematocrit Khloe A Dylan DO Work Phone: Start: 01-20-2024 Blood count hematocrit Korey Huang MD Work Phone: Start: 01-20-2024 Blood count hematocrit Kroey Huang MD Work Phone: Start: 01-20-2024 Radex forearm 2 views C urtis Franco Yovichin MD Work Phone: Start: 01-20-2024 Basic metabolic pane l calcium total Jessica Valdovinosfranklinreno DO Work Phone: Start: 01-19-2024 Blood count hematocrit Jessica Brayisraellorraine DO Work Phone: Start: 01-19-2024 RFA Celiac artery Vi ews W contrast IA Jessica Brayisraellorraine DO Work Phone: Start: 01-19-2024 Compatibility each u nit electronic Frankygon Franklin Martinezya DO Work Phone: Start: 01-19-2024 End: 01-19-2024 TRANSFUSE RED BLOOD CELLS Frankygon Z Natasha DO Work Phone: Start: 01-19-2024 End: 01-19-2024 TRANSFUSE RED BLOOD CELLS Frankygon Z Natasha DO Work Phone: Start: 01-19-2024 Ct angio abd&plvis c ntrst mtrl w/wo cntrst img jgon Z Natasha DO Work Phone: Start: 01-19-2024 Ecg routine ecg w/le ast 12 lds trcg only w/o i&r Mejgon Z Natasha DO Work Phone: Start: 01-19-2024 Blood typing serologic abo Frankygon Z Natasha DO Work Phone: Start: 01-19-2024 End: 01-19-2024 Comprehensive metabolic panel Mejgon Z Natasha DO Work Phone: Start: 08-09-2023 Renal function panel Andrew Sánchez [employer] Work Phone: Start: 08-09-2023 Ecg routine ecg w/le ast 12 lds trcg only w/o i&r Samuel Mudrakola DO Work Phone: Start: 03-03-2023 Basic metabolic pane l calcium total Balta Wang MD Work Phone: Start: 03-03-2023 Ecg routine ecg w/le ast 12 lds trcg only w/o i&r Balta Wang MD Work Phone: Start: 01-12-2023 End: 01-12-2023 Screening digital breast tomosynthesis bi Christiano Olivao DO Work Phone: Start: 10-01-2022 Radiologic exam ches t single view Mak Hilario MD Work Phone: Start: 09-30-2022 RF Guidance for alma bhaskar of tunneled CV catheter Radha Meza MD Work Phone: Start: 08-07-2022 Potassium serum plas ma/whole blood Otilio Gonzalo DO Work Phone: Start: 02-22-2022 Lipid 1996 panel - S effie or Plasma Raffy Rojas MD Work Phone: Start: 11-28-2020 Mammography Raffy smith MD Work Phone: Start: 10-25-2019 Renal biopsy prq trocar/needle Fransisco Valdovinos Work Phone: Start: 10-03-2019 ACTIVATED PTT Fransisco Valdovinos Work Phone: Start: 10-03-2019 CBC [facility] Transcribe Provider Start: 10-03-2019 PROTHROMBIN TIME/PT [facility] Transcribe Provider Start: 07-24-2019 Us retroperitoneal r eal time w/image complete Christiano Grove Work Phone: Plan of Treatment Date Care Activity Detail Author Start: 01-24-2034 Screening for malign ant neoplasm of colon [facility] Start: 02-22-2027 Lipid panel Haley [facility] amy Start: 12-20-2025 Creatinine measurement [facility] Start: 12-20-2025 Potassium measurement S [facility] Start: 11-22-2025 Creatinine measurement Creatinine Le [facility] Start: 11-22-2025 Potassium measurement Potassium Leve l [facility] Start: 11-13-2025 Creatinine measurement Creatinine Le [facility] Start: 11-13-2025 Potassium measurement Potassium Leve l [facility] Start: 11-11-2025 Creatinine measurement [facility] Start: 11-11-2025 Potassium measurement S [facility] Start: 09-15-2025 Echocardiography Echocardiogram [facility] Start: 09-15-2025 [facility] Start: 09-06-2025 Creatinine measurement Creatinine Le yoseph [facility] Start: 09-06-2025 Potassium measurement Potassium Leve l [facility] Start: 06-09-2025 Screening for malign ant neoplasm of breast [facility] Start: 01-24-2025 Diabetes: Estimated Glomerular Filtration Rate for Kidney Health Diabetes: Estimated Glomerular Filtration Rate for Kidney Health [facility] Start: 12-18-2024 End: 12-18-2024 Patient encounter procedure 12/18/2024 2:30 PM EDT Office Visit [facility] Vascular Surgery [facility] [address] [place] [phone] Raffy Rojas MD [address] [place], [place] [id number] [facility] Surgery [facility] Start: 12-06-2024 End: 12-06-2024 Patient encounter procedure 12/06/2024 11:00 AM EDT Office Visit [facility] [place] [address] [place] [phone] Raffy Rojas MD [address] [place] [address] [facility] [place] Start: 12-04-2024 COVID-19 Vaccine ( season) COVID-19 Vaccine ( season) [facility] Start: 12-04-2024 Influenza vaccination S [facility] Start: 12-04-2024 [facility] Start: 11-27-2024 End: 11-27-2024 Patient encounter procedure 11/27/2024 3:30 PM EDT Office Visit [facility] [place] [address] [place] [phone] Raffy Rojas MD [address] [place] [address] [facility] [place] Start: 11-22-2024 End: 11-22-2024 ambulatory [facility] [place] Start: 11-22-2024 End: 11-22-2024 Patient encounter procedure 11/22/2024 9:15 AM EDT Office Visit [facility] [place] [address] [place] [phone] Raffy Rojas MD [address] [place] [address] [facility] [place] Start: 11-14-2024 End: 12-14-2024 CBC panel - Blood by Automated count CBC Lab Routine Anemia due to other cause, not classified Expected: 11/14/2024 (Approximate), Expires: 12/14/2024 [facility] Work Phone: Comment on above: Expected: 11/14/2024 (Approximate), Expires: 12/14/2024 Start: 04-05-2024 Medicare Advantage A nnual Wellness Visit Medicare Advantage Annual Wellness Visit [facility] Start: 04-05-2024 [facility] Start: 01-13-2024 Screening for malign ant neoplasm of breast Mammogram [facility] Start: 12-05-2023 COVID-19 Vaccine ( season) COVID-19 Vaccine ( season) [facility] Start: 12-05-2023 COVID-19 Vaccine ( season) COVID-19 Vaccine ( season) [facility] Start: 12-05-2023 Influenza vaccination Influenza Vacc ine (#1) [facility] Start: 12-05-2023 [facility] Start: 10-25-2023 Hepatitis B Vaccines (5 of 5 - Risk Dialysis Recombivax 3-dose series) Hepatitis B Vaccines (5 of 5 - Risk Dialysis Recombivax 3-dose series) [facility] Start: 10-25-2023 [facility] Start: 06-25-2023 End: 06-24-2024 RFA Guidance for atherectomy of AV fistula-- W contrast IV IR fistulagram Imaging Routine End stage renal disease (HCC) Expected: 06/25/2023, Expires: 06/24/2024 [facility] Work Phone: Comment on above: Expected: 06/25/2023 , Expires: 06/24/2024 Start: 04-05-2023 Medicare Advantage A nnual Wellness Visit Medicare Advantage Annual Wellness Visit [facility] Start: 02-22-2023 Lipid panel Lipid Panel [facility] Start: 02-21-2023 Diabetes mellitus screening [facility] Start: 02-21-2023 Hemoglobin A1c measurement Herminia betes: Hemoglobin A1C [facility] Start: 12-04-2022 COVID-19 Vaccine () COVID-19 Vaccine () [facility] Start: 12-04-2022 Influenza vaccination S [facility] Start: 08-26-2022 End: 08-26-2022 Patient encounter procedure 08/26/2022 Office Visit Vascular Surgery Raffy Rojas MD [address] [place], [place] [phone] [facility] Start: 08-07-2022 End: 08-07-2022 Admission to same day surgery center 08/07/2022 Surgery Procedural Raffy Rojas MD [address] [place], [place] [phone] LEFT UPPER EXTREMITY ARTERIOVENOUS GRAFT PLACEMENT [97488 (CPT )] [facility] Comment on above: LEFT UPPER EXTREMITY ARTERIOVENOUS GRAFT PLACEMENT [87762 (CPT )] Start: 08-07-2022 End: 08-07-2022 Crtj arvwatson fstl xcp dir park anast nonautog grf CREATION AV FISTULA WITH NONAUTOGEMOUS GRAFT Dependence on renal dialysis (HCC) End stage renal disease (HCC) 08/07/2022 9:30 AM EDT [facility] Operating Room Start: 08-07-2022 Subsequent hospital visit by physician 08/07/2022 Hospital Encounter Procedural Raffy Rojas MD [address] [place], [place] [phone] [facility] Start: 08-03-2022 End: 08-03-2022 Patient encounter procedure 08/03/2022 Office Visit Vascular Surgery Raffy Rojas MD [address] [place] [phone] [facility] Start: 07-17-2022 End: 07-17-2022 Admission to same day surgery center 07/17/2022 Surgery Procedural Raffy Rojas MD [address] [place] [phone] LEFT UPPER EXTREMITY ARTERIOVENOUS GRAFT PLACEMENT [01185 (CPT )] [facility] MAIN OR Comment on above: LEFT UPPER EXTREMITY ARTERIOVENOUS GRAFT PLACEMENT [54131 (CPT )] Start: 07-17-2022 End: 07-17-2022 Anesthesia consultation 07/17/2022 Anesthesia Event Procedural Mary Wilkinson, SEC[employer]ITY [employer] OFF[employer]ER [employer] [address] [place] [address] [facility] MAIN OR Start: 07-17-2022 End: 07-17-2022 Crtj arven fstl xcp dir arven anast nonautog grf CREATION AV FISTULA WITH NONAUTOGEMOUS GRAFT Dependence on renal dialysis (HCC) End stage renal disease (HCC) 07/17/2022 11:30 AM EDT [facility] Operating Room Start: 07-17-2022 Subsequent hospital visit by physician 07/17/2022 Hospital Encounter Procedural Raffy Rojas MD [address] [address] [facility] MAIN OR Start: 07-16-2022 Hepatitis B Vaccines (2 of 2 - CpG 2-dose series) Hepatitis B Vaccines (2 of 2 - CpG 2-dose series) [facility] Start: 05-24-2022 Hemoglobin A1c measurement Herminia betes: Hemoglobin A1C [facility] Start: 04-05-2022 ADVANCE DIRECTIVE DISCUSSION ADVANCE DIRECTIVE DISCUSSION [facility] Start: 04-05-2022 DEPRESSION ASSESSMENT DEPRESSION ASS ESSMENT [facility] Start: 12-04-2021 Influenza vaccination [facility] Start: 11-28-2021 Screening for malign ant neoplasm of breast Mammogram [facility] Start: 04-30-2021 COVID-19 Vaccine (4 - Booster for Moderna series) COVID-19 Vaccine (4 - Booster for Moderna series) [facility] Start: 04-30-2021 COVID-19 Vaccine (4 - Moderna series) COVID-19 Vaccine (4 - Moderna series) [facility] Start: 10-16-2020 COVID-19 VACCINE (3 - Booster for Moderna series) COVID-19 VACCINE (3 - Booster for Moderna series) [facility] Start: 12-05-2019 Influenza vaccination [place], [place] Start: 09-03-2018 Breast cancer screen Breast cancer s creen [place], [place] Start: 2015 ADVANCE DIRECTIVE DISCUSSION ADVANCE DIRECTIVE DISCUSSION [facility] Start: 2015 BONE DENSITY BONE DENSITY [facility] Start: 2015 Pneumococcal 65+ yea rs Vaccine (1 of 1 - PPSV23) Pneumococcal 65+ years Vaccine (1 of 1 - PPSV23) [place], [place] Start: 2015 Pneumococcal Vaccine : 65+ Years (1 of 1 - PCV) Pneumococcal Vaccine: 65+ Years (1 of 1 - PCV) [facility] Start: 2015 PNEUMOVAX AGE 65 AND OVER WITH 5YR LOOKBACK (#1) PNEUMOVAX AGE 65 AND OVER WITH 5YR LOOKBACK (#1) [facility] Start: 2010 HEPATITIS B (1 of 3 - Risk 3-dose series) HEPATITIS B (1 of 3 - Risk 3-dose series) [facility] Start: 2010 RSV High Risk: (Elde rly (60+) or Population) (1 - Risk 60-74 years 1-dose series) RSV High Risk: (Elderly (60+) or Population) (1 - Risk 60-74 years 1-dose series) [facility] Start: 2010 RSV Immunization age d 60 or older (1 - 1-dose 60+ series) RSV Immunization aged 60 or older (1 - 1-dose 60+ series) [facility] Start: 2010 RSV Immunization for Adults (1 - Risk 60-74 years 1-dose series) RSV Immunization for Adults (1 - Risk 60-74 years 1-dose series) [facility] Start: 2010 [facility] Start: 2005 DEXA (modify frequen cy per FRAX score) DEXA (modify frequency per FRAX score) [place], [place] Start: 2000 Colon cancer screen colonoscopy Colon cancer screen colonoscopy [place], [place] Start: 2000 Pneumococcal Vaccine : 50+ Years (1 of 1 - PCV) Pneumococcal Vaccine: 50+ Years (1 of 1 - PCV) [facility] Start: 2000 Shingles Vaccine (1 of 2) Zaman gles Vaccine (1 of 2) [place] Start: 2000 SHINGRIX VACCINE (1 of 2) ZAMAN GRIX VACCINE (1 of 2) [facility] Start: 2000 Tuberculosis screening COLOREC NELLA CANCER SCREENING,SEE MODIFIER [facility] Start: 2000 Zoster Vaccines (1 of 2) Zoste r Vaccines (1 of 2) [facility] Start: 2000 [facility] Start: 1995 COLOGUARD (FIT-DNA) COLOGUARD (FIT-D NA) [facility] Start: 1995 Colonoscopy COLONOSCOPY [facility] Start: 1995 COLORECTAL CANCER SCREENING COLORECTAL CANCER SCREENING [facility] Start: [address] COLONOGRAPHY [facility] Start: 1995 DIABETES SCREEN DIABETES SCREEN [facility] Start: 1995 FECAL OCCULT BLOOD FECAL OCCULT BLOO D [facility] Start: 1995 LIPID SCREEN LIPID SCREEN [facility] Start: 1995 SIGMOIDOSCOPY SIGMOIDOSCOPY [facility] Start: 1990 Lipid screen Lipid screen [place], [place] Start: 1990 Mammography MAMMOGRAM [facility] Start: 1990 Screening for malign ant neoplasm of breast Mammogram [facility] Start: 1972 DTaP/Tdap/Td Vaccine s (1 - Tdap) DTaP/Tdap/Td Vaccines (1 - Tdap) [facility] Start: 1969 DTaP/Tdap/Td vaccine (1 - Tdap) DTaP/Tdap/Td vaccine (1 - Tdap) [place], [place] Start: 1969 DTaP/Tdap/Td Vaccine s (1 - Tdap) DTaP/Tdap/Td Vaccines (1 - Tdap) [facility] Start: 1969 Pneumococcal Vaccine : 50+ Years (1 of 2 - PCV) Pneumococcal Vaccine: 50+ Years (1 of 2 - PCV) [facility] Start: 1969 SHINGRIX VACCINE (1 of 2) ZAMAN GRIX VACCINE (1 of 2) [facility] Start: 1969 Urine microalbumin profile DTAP,TDAP ,TD (1 - Tdap) [facility] Start: 1969 Zoster Vaccines (1 of 2) Zoste r Vaccines (1 of 2) [facility] Start: 1969 [facility] Start: 1968 Diabetes mellitus screening Diabetes Screening [facility] Start: 1968 Diabetes: Urine Albumin-Creatinine Ratio for Kidney Health Diabetes: Urine Albumin-Creatinine Ratio for Kidney Health [facility] Start: 1968 HEPATITIS C SCREENING HEPATITIS C [facility] Start: 1968 Hepatitis C screening Hepatitis C [facility] Start: 1962 Depression Monitoring Depression Mon itoring [facility] Start: 1962 Depression Screening Depression Scre ening [facility] Start: 1962 [facility] Start: 1960 Diabetic foot examination Diabetes: Foot Exam [facility] Start: 1960 Glaucoma screening Diabetes: R etinopathy Screening [facility] Start: 1960 Preventive dental service Diabetes: Dental Exam [facility] Start: 1956 Pneumococcal Vaccine : 65+ Years (1 - PCV) Pneumococcal Vaccine: 65+ Years (1 - PCV) [facility] Start: 1956 Pneumococcal Vaccine : 65+ Years (1 of 2 - PCV) Pneumococcal Vaccine: 65+ Years (1 of 2 - PCV) [facility] Start: 1956 PNEUMOCOCCAL: 65+ (1 - PCV) PNEUMOCOCCAL: 65+ (1 - PCV) [facility] Start: 1951 HEPATITIS A (1 of 2 - Risk 2-dose series) HEPATITIS A (1 of 2 - Risk 2-dose series) [facility] Start: 01-05-1951 Echocardiography Echocardiogram [facility] Start: 1950 Hepatitis C screen Hepatitis C [facility] [place] Start: 1950 Lipid panel Lipid Panel [facility] Start: 1950 Medicare Advantage A nnual Wellness Visit (AWV) Medicare Advantage Annual Wellness Visit (AWV) [facility] Start: 1950 Medicare Annual Well ness Visit Medicare Annual Wellness Visit (AWV) [facility] Start: 1950 Screening for malign ant neoplasm of colon [facility] Start: 1950 Screening for osteoporosis [facility] Bacteria identified in Blood by Culture [facility] End: 02-19-2024 Bacteria identified in Lower respiratory specimen by Aerobe culture [facility] Comment on above: Once (Lab) for 1 Occ urrences starting 02/19/2024 until 02/19/2024 Basic metabolic 2000 panel - Serum or Plasma Basic metabolic panel Lab Routine Daily (Lab) until discontinued starting 08/31/2024, 5 completed [facility] Service Area Work Phone: Comment on above: Daily (Lab) until di scontinued starting 08/31/2024, 5 completed End: 09-07-2024 CBC panel - Blood by Automated count [facility] Work Phone: Comment on above: Morning draw (Lab) f or 3 Days starting 09/05/2024 until 09/07/2024, 1 completed Morning draw (Lab) f or 3 Occurrences starting 09/05/2024 until 09/07/2024 End: 08-31-2024 Consult to Interventional Radiology Consult to Interventional Radiology Imaging STAT Once for 1 Occurrences starting 08/31/2024 until 08/31/2024 [facility] Work Phone: Comment on above: Once for 1 Occurrenc es starting 08/31/2024 until 08/31/2024 ECG 12 lead ECG 12 lead CV E CG STAT 08/09/2023 4:05 PM EDT [facility] Work Phone: Electrocardiogram, 1 2-lead PRN ACS symptoms Electrocardiogram, 12-lead PRN ACS symptoms ECG Routine As needed until discontinued starting 08/31/2024 [facility] Work Phone: Comment on above: As needed until disc ontinued starting 08/31/2024 End: 12-13-2024 Erythrocyte sedimentation rate [facility] Work Phone: End: 02-19-2024 Hemodialysis Hemodialysis inpatient 3 Hours Dialysis Routine Once for 1 Occurrences starting 02/19/2024 until 02/19/2024 [facility] Work Phone: Comment on above: Once for 1 Occurrenc es starting 02/19/2024 until 02/19/2024 End: 08-31-2024 Hemodialysis Hemodialysis inpatient 3.5 Hours Dialysis Routine Once for 1 Occurrences starting 08/31/2024 until 08/31/2024 [facility] Work Phone: Comment on above: Once for 1 Occurrenc es starting 08/31/2024 until 08/31/2024 End: 09-02-2024 Hemodialysis Hemodialysis inpatient 3.5 Hours Dialysis Routine Once for 1 Occurrences starting 09/02/2024 until 09/02/2024 [facility] Work Phone: Comment on above: Once for 1 Occurrenc es starting 09/02/2024 until 09/02/2024 End: 09-05-2024 Hemodialysis Hemodialysis inpatient 3.5 Hours Dialysis Routine Once for 1 Occurrences starting 09/05/2024 until 09/05/2024 [facility] Work Phone: Comment on above: Once for 1 Occurrenc es starting 09/05/2024 until 09/05/2024 End: 09-07-2024 Hemodialysis Hemodialysis inpatient 3.5 Hours Dialysis Routine Once for 1 Occurrences starting 09/07/2024 until 09/07/2024 [facility] Work Phone: Comment on above: Once for 1 Occurrenc es starting 09/07/2024 until 09/07/2024 End: 09-07-2024 Renal function 2000 panel - Serum or Plasma Renal Function Panel Lab Routine Morning draw (Lab) for 3 Occurrences starting 09/05/2024 until 09/07/2024, 2 completed [facility] Work Phone: Comment on above: Morning draw (Lab) f or 3 Occurrences starting 09/05/2024 until 09/07/2024, 2 completed SURGICAL PATHOLOGY SURGICAL PATH OLOGY Lab Routine 10/25/2019 [facility] Immunizations Immunization Date Immunization Notes Care Provider Mer rosa 01-03-2024 influenza virus vaccine, unspecified formulation CHAPARRO Moore MD Work Phone: [employer] 01-16-2023 influenza virus vaccine, unspecified formulation Brown Kaur DO Work Phone: [employer] 08-21-2020 Moderna SARS-CoV-2 Vaccination Raffy Rojas MD Work Phone: [employer] 07-24-2020 Moderna SARS-CoV-2 Vaccination Raffy Rojas MD Work Phone: [employer] NEGATED: Highlighted row has not occurred!03-03-2024 Seasonal trivalent influenza vaccine, adjuvanted, preservative free Marcus Ragland DO Work Phone: [employer] Comment on above: Deferred: Patient Re fused - pt states she alread had one Payers Date Payer Category Payer Self-pay 2023 Medicare (Managed Care) [employer] [id number] 2023 Medicare HMO [id number] 2022 Unknown [id number] 2021 Medicare [id number] 2019 Medicare UHC AARP MEDICAR E [facility] AARP MEDICARE HMO [id number] 2019-Present HMO [id number] 2018 Private Health Insurance [id number] 1950 Unknown [id number]. 2.598 1950 Unknown [id number] 2.16.840.1.080957.3.579. 2.598 1950 Unknown [id number] [id number]. 2.598 1950 Unknown [id number]. 2.1245 Unknown [id number] [id number]. 2.462 Unknown [id number] 2.16.840.1.127150.3.579. 2.462 Unknown [id number] 2.16.840.1.881458.3.579. 2.462 Unknown [id number] 2.16.840.1.658973.3.579. 2.462 Unknown [id number] 2.16.840.1.292843.3.579. 2.462 Unknown [id number] 2.16.840.1.564059.3.579. 2.462 Unknown [id number] 2.16.840.1.984156.3.579. 2.462 Unknown [id number] 2.16.840.1.305516.3.579. 2.462 Unknown [id number] [id number]. 2.462 Social History Date Type Detail [facility] [place] Start: 1950 Sex Assigned At Not on file [place], [place] Exposure to SARS-CoV -2 (event) Unable to assess [facility] Start: 06-14-2022 End: 08-31-2024 Exposure to SARS-CoV-2 (event) Not sure [facility] Tobacco smoking stat us NHIS Tobacco smoking consumption unknown [facility] Start: 02-22-2022 End: 08-31-2024 Tobacco smoking status NJIS Never smoked tobacco [facility] Start: 02-22-2022 End: 08-31-2024 Tobacco use and exposure Smokeless tobacco non-user [facility] Start: 06-24-2022 End: 12-06-2024 Alcohol intake Current drinker of alcohol (finding) [facility] Start: 06-24-2022 End: 12-09-2024 Alcohol intake [facility] Start: 02-22-2022 History SDOH Alcohol Frequency 5 [facility] Start: 02-22-2022 History SDOH Alcohol Std Drinks 1 [facility] Start: 02-22-2022 End: 08-07-2022 History SDOH IPV Fear 2 [facility] Start: 07-10-2022 Alcohol Comment weekly [facility] Start: 08-07-2022 End: 12-09-2024 Humiliation, Afraid, Rape, and Kick questionnaire [HARK] [facility] Within the last year , have you been afraid of your partner or ex-partner? No [facility] How often to you hav e a drink containing alcohol? 4 or more times a week [facility] How many standard dr inks containing alcohol do you have on a typical day? 1 or 2 [facility] How often do you hav e 6 or more drinks on 1 occasion? Never [facility] In the past 12 month s, has lack of transportation kept you from medical appointments or from getting medications? No [facility] Start: 11-03-2021 Sex Female (finding) [facility] How often to you hav e a drink containing alcohol? Monthly or less [facility] How often to you hav e a drink containing alcohol? 2-3 time sa week [facility] (I/We) worried jeanne er (my/our) food would run out before (I/we) got money to buy more. Never true [facility] How often do you hav e 6 or more drinks on 1 occasion? Less than monthly [facility] Do you belong to any clubs or organizations such as mormonism groups, unions, fraternal or athletic groups, or school groups? Yes [facility] Are you now , , , , never or living with a partner? [facility] Do you feel stress - tense, restless, nervous, or anxious, or unable to sleep at night because your mind is troubled all the time - these days [OSQ] Very much [facility] Medical Equipment Procedure Code Equipment Code Equipment Origin al Text Equipment Identifier Dates [id number] Start: 08-07-2022 [id number] Start: 01-24-2024 Functional Status Date Assessment Result Facility 10-31-2024 Total score [AUDIT-C] [facility] 08-31-2024 [facility] suicide s everity rating scale screener - recent [C-SSRS] [facility] Work Phone: 08-31-2024 Total score [AUDIT-C] 1 09/01/19 12:15 AM EDT Fe Luong RN [facility] Work Phone: 08-31-2024 Patient Health Quest ionnaire 2 item (PHQ-2) [Reported] [facility] Work Phone: [facility] Work Phone: [facility] Clinical Notes 12-31-2020 to 12-28-2024 Casi Rodgers RN - 12/28/2024 10:26 AM EDShahbaz Rodgers RN - 12/28/2024 10:26 AM Karen Kaur DO - 12/28/2024 9:57 AM EDTDisannalisa Kaur DO - 12/28/2024 9:57 AM EDT Note Date & Type Note Facility 12-28-2024 Emergency department Note Called [facility] and spoke with Tyra nurse at the [...] as report. No signs of injury noted. [facility] 12-28-2024 Emergency department Note Called [facility] and spoke with nurse Tyra at the [...] Patient presents with Altered Mental Status Per [facility], pt was altered last night. Sent [...] daily as needed (first line for agitation, [place] PRN Seroquel for ONLY if danger to self/others/treatment). sevelamer (Renagel) 800 MG tablet Take 800 mg by mouth 3 times daily (with meals). Swallow tablet whole; do not crush, break, or chew. Thiamine HCl (vitamin B-1) 250 MG tablet Take 250 mg by mouth daily. ALLERGIES Patient has no known allergies. FAMILY HISTORY Family History[3] SOCIAL HISTORY Social History[4] SCREENINGS [place] Coma Scale Best Eye Response: Spontaneous Best Verbal Response: Oriented Best Motor Response: Follows commands [place] Coma Scale Score: 15 PHYSICAL EXAM ED [...] Glucose 80 Narrative: Performed by: Haley Kirk, [address] [place] [address] CLIA ID: [id number] All other labs were within normal range [...] Suspect that her symptoms were due to . She will be discharged to her nursing facility with return precautions. CRITICAL CARE TIME CONSULTS: None PROCEDURES: Unless otherwise noted below, none Procedures Patients symptoms are consistent with sepsis, severe sepsis, or septic shock (If yes use ".sepsiscoremeasure"): FINAL IMPRESSION 1. Transient alteration of awareness DISPOSITION Discharge 12/28/2024 10:19:34 AM PATIENT REFERRED TO: Roxie Spain [address] [place] [address] DISCHARGE MEDICATIONS: Current Discharge Medication List [...] 01/25/2024 Performed by Chrissy Gilman MD at [facility] ENDOSCOPY IR CVC TUNNELED DIALYSIS CATHETER PLACEMENT 02/27/2022 IR CVC TUNNELED CATHETER PLACEMENT 02/27/2022 Candis Andrade MD [facility] SPECIAL PROCEDURES IR EMBOLIZATION 01/24/2024 IR EMBOLIZATION 01/24/2024 Jovan Glynn MD [facility] SPECIAL PROCEDURES VASCULAR SURGERY Left [...] 10 min Stress: Stress Concern Present (12/09/2024) [place] [facility] [employer] [facility] - Occupational Stress Questionnaire Feeling of Stress : Very much Social Connections: Moderately Integrated (12/09/2024) Social Connection and Isolation Panel [NHANES] Frequency of Communication with Friends and Family: More than three times a week Frequency of Social Gatherings with Friends and Family: Three times a week Attends Congregation Services: 1 to 4 times per year [...] DO 12/28/24 1027 documented in this encounter [facility] 12-28-2024 Hospital Discharge instructions Brown Kaur DO - 12/28/2024 10:20 AM EDT Schedule an appointment to follow-up with your primary care physician for evaluation of your confusion at night. Return to the ER for fevers, chest pain, urinary symptoms or worsening confusion. documented in this encounter [facility] 12-28-2024 Physician Emergency department Note EMERGENCY DEPARTMENT ENCOUNTER Pt Name: Apoorva Gonzalez Birthdate 1950 Date of evaluation: 12/28/2024 ED Provider: Brown Kaur DO CHIEF COMPLAINT Chief Complaint Patient presents with Altered Mental Status Per [facility], pt was altered last night. Sent [...] daily as needed (first line for agitation, [place] PRN Seroquel for ONLY if danger to [...] Response: Oriented Best Motor Response: Follows commands [place] Coma Scale Score: 15 PHYSICAL EXAM ED Triage Vitals [12/28/ 1000] Temp Heart Rate Resp BP 37.1 [...] Glucose 80 Narrative: Performed by: Haley Kirk, [address] [place] [address] CLIA ID: [id number] All other labs were within normal range [...] 10:19:34 AM PATIENT REFERRED TO: Roxie Spain [address] [place] [address] DISCHARGE MEDICATIONS: Current Discharge Medication List [...] 01/25/2024 Performed by Crhissy Gilman MD at [facility] ENDOSCOPY IR CVC TUNNELED DIALYSIS CATHETER PLACEMENT 02/27/2022 IR CVC TUNNELED CATHETER PLACEMENT 02/27/2022 Candis Andrade MD [facility] SPECIAL PROCEDURES IR EMBOLIZATION 01/24/2024 IR EMBOLIZATION 01/24/2024 Jovan Glynn MD [facility] SPECIAL PROCEDURES VASCULAR SURGERY Left [...] 10 min Stress: Stress Concern Present (12/09/2024) [place] [facility] [employer] [facility] - Occupational Stress Questionnaire Feeling of Stress : Very much Social Connections: Moderately Integrated (12/09/2024) Social Connection and Isolation Panel [NHANES] Frequency of Communication with Friends and Family: More than three times a week Frequency of Social Gatherings with Friends and Family: Three times a week Attends Congregation Services: 1 to 4 times per year [...] Year: No Brown Kaur DO 12/28/24 1027 [facility] 12-20-2024 Nurse Note Attempted to call report to [facility]. No answer. Discharge order placed. IVS removed. Transport here to take pt to SNF. Patient Name: Apoorva Gonzalez Patient : 1950 Acct: [id number] Date of Admission: 12/08/2024 Room/Bed: [facility] A Code Status: DNR-CCA Allergies: [...] Results Component Value Date/Time WBC 12.1 (H) 12/20/202416 HGB 7.1 (L) 12/20/202416 HGB 9.3 12/11/20242029 HCT 20.9 (L) 12/20/202416 PLT 237 12/20/202416 NA 134 (L) 12/20/202416 K 4.3 12/20/202416 CL 106 12/20/202416 CO2 21 (L) 12/20/202416 BUN 15 12/20/202416 CREATININE 2.84 (H) 12/20/202416 CALCIUM 6.5 (L) 12/20/202416 PHOS 2.3 12/14/2024 0240 IV Drips and Rate/Dose Continuous Meds[3] Safety - Before each treatment: Dialysis Machine No.: [id number] Machine Number: [id number] Dialyzer Lot No.: [id number] Tubing Lot Number: [id number] All Connections Secure: Yes Venous Parameters Set: Yes Arterial Parameters Set: Yes NS Bag: Yes Saline Line Double Clamped: Yes Dialyzer: Nipro Prime Volume (mL): 200 mL RO Machine Number: [id number] RO Machine Log Sheet Completed: Yes Machine Alarm Self Test: Passed, Completed (1410) (12/20/24 1410) Air Foam Detector: Tested, Proper Function Extracorporeal Circuit Tested for Integrity: Yes Machine Conductivity: 13.7 Manual Conductivity: 13.6 Manual Ph: 7.2 Bleach Test (Neg): Yes Bath Temperature: 36 C (96.8 F) Conductivity Meter Serial #: [id number] Machine Functioning Alarm Free? Yes Dialysis Bath: K+ (Potassium): 3 Ca+ (Calcium): 2.5 Na+ (Sodium): 135 HCO3 (Bicarb): 35 Bicarbonate Concentrate Lot No.: [id number] Acid Concentrate Lot No.: [id number] Chlorine Testing - Before each treatment and every 4 hours: Time On: 1439 Time Off: 1738 Treatment Goal: 2L Weight Height: 164 cm [...] 600 Yes pt watching tv, uf removal 1868 12/20/24 1700 400 mL/min 830 ml/hr -130 mmHg [...] of only one wrist restraint) Provider Name: Mariaelena OWEN Provider Role: CRISTO Method of Communication: [...] initial encounter Moderate malnutrition (CMS/HCC) (HCC) [3] Wound Care consulted for Pressure Injury Prevention. Pt's Arnol score= 14 on 12/18/2024 Pt in chair for assessment. Pt currently followed by Wound CABLE SPLICER HELPER group for wound to Left buttock stage 3 pressure injury. For Left buttock stage 3 pressure injury wound assessment and treatment plan, please see Wound/Ostomy CABLE SPLICER HELPER progress notes. Pt's pressure points assessed: Pt's [...] and applied. Prevention Measures in place, including: [place] sheet with pillows/wedges (in place), Bilateral foam heel protectors (obtained for pt and applied to pt), Heels elevated off chair on pillows, Bilateral Elbows (off loaded on pillow), Sacral foam (NA see Wound Care CABLE SPLICER HELPER treatment plan), Upper Spine foam (obtained and [...] in place. PT/OT consult in place. D/W career law clerk skin assessment, preventions, and interventions implemented. Will continue to follow pt. Please Voicera for any questions or concerns. DEWAYNE Lozano, RN Patient Name: Apoorva Gonzalez Patient : 1950 Acct: [id number] Date of Admission: 12/08/2024 Room/Bed: [facility] A Code Status: DNR-CCA Allergies: [...] (H) 12/18/2024 042 CALCIUM 7.3 (L) 12/18/2024 0420 PHOS 2.3 12/14/2024 0240 IV Drips and Rate/Dose Continuous Meds[3] Safety - Before each treatment: Dialysis Machine No.: [id number] Machine Number: [id number] Dialyzer Lot No.: [id number] Tubing Lot Number: [id number] All Connections Secure: Yes Venous Parameters Set: Yes Arterial Parameters Set: Yes NS Bag: Yes Saline Line Double Clamped: Yes Dialyzer: Nipro Prime Volume (mL): 200 mL RO Machine Number: [id number] RO Machine Log Sheet Completed: Yes Machine Alarm Self Test: Completed, Passed (at 1455) (12/18/24 1500) Air Foam Detector: Tested, Proper Function, pH Reading Extracorporeal Circuit Tested for Integrity: Yes Machine Conductivity: 13.7 Manual Conductivity: 13.8 Manual Ph: 7.2 Bleach Test (Neg): Yes (water check negative at 1615) Bath Temperature: 36 C (96.8 F) Conductivity Meter Serial #: [id number] Machine Functioning Alarm Free? Yes Dialysis Bath: K+ (Potassium): 3 Ca+ (Calcium): 2.5 Na+ (Sodium): 135 HCO3 (Bicarb): 35 Bicarbonate Concentrate Lot No.: [id number] Acid Concentrate Lot No.: [id number] Chlorine Testing - Before each treatment and [...] of only one wrist restraint) Provider Name: Mariaelena OWEN Provider Role: CRISTO Method of Communication: [...] after all 3 units are received. Per lai, ICU is unable to place line today. PREHEMMER put 18g in upper arm to attempt [...] to the issues with getting access/blood. Messaged director community organization Nany OWEN regarding not being able to [...] specimen contaminated and recommended repeat H&H. Messaged director community organization Nany OWEN about critical. Per CABLE SPLICER HELPER repeat H&H ordered for morning, no transfusion [...] Name: Apoorva Gonzalez Patient : 1950 Acct: [id number] Date of Admission: 12/08/2024 Room/Bed: [facility] A Code Status: DNR-CCA Allergies: [...] - Before each treatment: Dialysis Machine No.: [id number] RO Machine Number: [id number] Dialyzer Lot No.: [id number] Tubing Lot Number: [id number] All Connections Secure: Yes Venous Parameters Set: Yes Arterial Parameters Set: Yes NS Bag: Yes Saline Line Double Clamped: Yes Dialyzer: Nipro Prime Volume (mL): 200 mL RO Machine Number: [id number] RO Machine Log Sheet Completed: Yes Machine [...] HCO3 (Bicarb): 35 Bicarbonate Concentrate Lot No.: [id number] Acid Concentrate Lot No.: [id number] Chlorine Testing - Before each treatment and [...] Name: Apoorva Gonzalez Patient : 1950 Acct: [id number] Date of Admission: 12/08/2024 Room/Bed: [facility] A Code Status: DNR-CCA Allergies: [...] (H) 12/14/2024 0240 HGB 7.5 (L) 12/14/2024 0240 HGB 9.3 12/11/2024 2030 HCT 23.6 (L) 12/14/2024 0240 PLT 305 12/14/2024 0240 NA 130 (L) 12/14/2024 0240 K 3.7 12/14/2024 024 CL 96 (L) 12/14/2024 0240 CO2 25 12/14/2024 0240 BUN 26 (H) 12/14/2024 024 CREATININE 4.37 (H) 12/14/2024 024 CALCIUM 7.5 (L) 12/14/2024 024 PHOS 2.3 12/14/2024 024 Lab Results Component Value Date WBC 13.1 [...] - Before each treatment: Dialysis Machine No.: [id number] Machine Number: [id number] Dialyzer Lot No.: [id number] Machine Log Sheet Completed: Yes Machine Alarm Self Test: Completed, Passed (12/14/2435) Air Foam Detector: Tested, Proper Function Extracorporeal Circuit Tested for Integrity: Yes (test complete at 932) Machine Conductivity: 13.7 Manual Conductivity: 13.6 Bicarbonate Concentrate Lot No.: [id number] Acid Concentrate Lot No.: [id number] Manual Ph: 7.4 Bleach Test (Neg): Yes Bath Temperature: 36 C (96.8 F) Tubing Lot Number: [id number] Conductivity Meter Serial #: [id number] All Connections Secure: Yes Arterial Parameters Set: Yes Saline Line Double Clamped: Yes Air Foam Detector: Tested, Proper Function Prime Volume (mL): 200 mL Machine Functioning Alarm Free? Yes Chlorine Testing - Before each treatment and every 4 hours: Time On: 09 Time Off: 1242 Treatment Goal: 2L Weight [...] get out. Bed alarm failed to function. Yoly states she remembers trying to set it [...] Name: Apoorva Gonzalez Patient : 1950 Acct: [id number] Date of Admission: 12/08/2024 Room/Bed: [facility] A Code Status: DNR-CCA Allergies: [...] Results Component Value Date/Time WBC 11.5 (H) 12/12/2024 010 HGB 8.0 (L) 12/12/2024 010 HGB 9.3 12/11/2024 2030 HCT 24.8 (L) 12/12/2024 0103 PLT 332 12/12/2024 0103 NA 137 12/12/2024 0103 K 4.1 12/12/2024 0103 CL 100 12/12/2024 0103 CO2 26 12/12/2024 0103 BUN 38 (H) 12/12/2024 0103 CREATININE 5.60 (H) 12/12/2024 0103 CALCIUM 7.8 (L) 12/12/2024 010 PHOS 1.7 (L) 12/09/2024 1023 IV Drips and Rate/Dose Continuous Meds[3] Safety - Before each treatment: Dialysis Machine No.: [id number] RO Machine Number: [id number] Dialyzer Lot No.: [id number] Tubing Lot Number: [id number] All Connections Secure: Yes Venous Parameters Set: Yes Arterial Parameters Set: Yes NS Bag: Yes Saline Line Double Clamped: Yes Dialyzer: Nipro Prime Volume (mL): 200 mL RO Machine Number: [id number] RO Machine Log Sheet Completed: Yes Machine Alarm Self Test: Completed, Passed (12/12/24 1445) Air Foam Detector: Tested, Proper Function, pH Reading Extracorporeal Circuit Tested for Integrity: Yes Machine Conductivity: 13.5 Manual Conductivity: 13.6 Manual Ph: 7.2 Bleach Test (Neg): Yes Bath Temperature: 36 C (96.8 F) Conductivity Meter Serial #: [id number] Machine Functioning Alarm Free? Yes Dialysis Bath: K+ (Potassium): 3 Ca+ (Calcium): 2.5 Na+ (Sodium): 135 HCO3 (Bicarb): 35 Bicarbonate Concentrate Lot No.: [id number] Acid Concentrate Lot No.: [id number] Chlorine Testing - Before each treatment and [...] see media tab. Consult placed to wound CABLE SPLICER HELPER group. Pt turned to left side at end of visit. Prevention Measures in place, including: [place] sheet with pillows/wedges, Foam heel protectors (applied), [...] being unable to answer MRI questions. Messaged director community organization for order for chest xray and KUB. This rn and legal intern attempted to get blood cultures, unable to get. Lactic was obtained and sent. Called and left VM for rapid to see if they can obtain blood cultures. Dr Kevin made aware that at this time blood cultures could not be drawn. Notified director community organization Rishi HART of ABG results. Order to [...] states she would like to return to [facility] at discharge documented in this encounter [facility] 12-20-2024 Miscellaneous Notes Transportation confirmed for 630. Called and spoke to brother Deshawn with update on time of discharge. RN and assistant community manager notified via secure chat. Discharge med list transmitted to [facility] via [facility] per [facility] request. Confirmed pickup time of 6:30pm on 12/20/24 by transport [employer] at phone number [phone]. Location of facility drop off is [facility]. Facility notified via [facility], [facility] notified on secure chat. Discharge order noted in epic. [facility] tasked to set up cot transport for return to [facility]. Palliative Care Interdisciplinary Team Note: Diagnosis: [...] Any Medications Nursing: Decrease Fall Risk and Residential Care Social Work: No Unmet Needs Spiritual Care: No Unmet Needs Pharmacy: No Unmet Needs Psychology/Psychiatry: No Unmet Needs Care Management Progress Note Short Medical why still here: Chart reviewed. MRI under sedation today. +IV abx for discitis, ID following. Patient received 3U PRBC yesterday for Hgb 4.1 2/2 rectus sheath hematoma. Palliative care following. Current discharge plan is return to [facility] once stable. Planned Discharge Disposition: Residential Facility Barriers/Today we still Wait: Clinical stability, [...] Wednesday. Current discharge plan is return to [facility] once stable. Planned Discharge Disposition: Residential Facility Barriers/Today we still Wait: Clinical stability, [...] brother-Deshawn. He states received recent information from [facility] that patient may be over assets. He stated he shared this information with the social worker aide at [facility]. TAX RECORD CLERK did confirm that is the best [...] into bed using appropriate back board. Ramonita OWEN notified and fall orders placed. Sitter at bedside, bed alarm placed. No further interventions at this time. Primary RN to call with further concerns. [facility]. Await review and response regarding ability to accept. TCC notified. Care Managment Initial Assessment Date: 12/12/2024 Patient Name: Apoorva Gonzalez : 1950 Patient Information Source of Information: Patient Cut Roll 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 Name/Contact Information: brother Deshawn GENET, 2/2 patient lethargic Cognition/Language: Impaired Permission given to speak with patient public service representative/caregiver as indicated: Yes Confirmation of Payer with patient/family: Yes Payer Name: [employer]sen[employer]a Medicare/ per brother, in process of applying for medicaid [place]: No Confirmation of Primary Care Physician: Confirmed PCP Name: PCP at facility Seen in last 2 years?: Yes Primary Caregiver: Other (Comment) (facility staff) If assistance needed, confirmed caregiver ready, willing and able to care for patient at discharge: No Confirmed with: Deshawn arredondo Living Arrangements Facility: Intermediate/Residental Care Facility Name: [facility] Plan to Return: Yes Lives with: [...] ECF Discharge Planning Actions: Continue to follow, Residential Facility referral indicated [facility] discussed (choice list not indicated; [...] consulted. Brother confirmed patient is from [facility]. She is assist with transfer to [...] of blood components. documented in this encounter [facility] 12-20-2024 Note [facility] 12-20-2024 Hospital course Narrative Hospitalist Discharge Summary [...] outpatient. Seen by geriatrics and nephrology as telesales consultant in hospital admission. The patient is [...] daily as needed (first line for agitation, [place] PRN Seroquel for ONLY if danger to [...] tablet Recommended Follow-up: [facility] [address] [facility] [id number] Victor Manuel Benito MD [address] [place] [address] [address] [facility] [phone] Schedule an appointment as soon as possible for a visit As needed, neck pain Roxie [facility] [address] [place] [address] Schedule an appointment as soon as possible for a visit post hospital follow up Complexity of Follow up: [] Moderate Complexity: follow up within 7-14 calendar days ([id number]) [x] Severe Complexity: follow up within 7 calendar days ([id number]) Follow up Testing, Pending results or Referrals [...] MD Division of Hospitalist Medicine Inpatient Medical Services/[facility] 12/20/2024 [1] Past Medical History: Diagnosis Date Chronic kidney disease (CKD) Hemodialysis patient (CMS/HCC) (HCC) Wednesday, , Wednesday History of blood transfusion 02/27/2022 Hypertension Seizure ([facility]) Developed seizure-like activity on 02/24 during hospital admission documented in this encounter [facility] 12-20-2024 History of Present illness Narrative Nephrology [...] any questions or concerns Pipe Soto MD [facility] Geriatric Medicine Inpatient Consult Service Admission Date: [...] for pain --QTc= 451 ms on 12/11/24 --[place] PRN Seroquel for ONLY if danger to [...] evaluation --Anticipate d/c to return to [facility] --Vitamin D 60 --Check orthostatic vital signs as able --Formation Fracturing Operator- supplements ordered BID Acute pain due [...] level 11.3 -As a new medication with SHIP'S SURVEYOR activity, sertraline may be a contributor to encephalopathy. Now discontinued -Continue thiamine supplementation Plan discussed with RN. Follow-up: will follow with you Subjective Chief Complaint: fall Geriatrics consulted for fall HPI- The patient is known to me. 74 y.o. year-old female admitted to acute care from [facility] for fall on 12/08. Patient reportedly [...] 0.83 12/13/2024 Lab Results Component Value Date [id number] 1,419 (H) 12/13/2024 Lab Results Component Value [...] Sean Castaneda MD, 2 mg at 12/13/24 214 amLODIPine (Norvasc) tablet 10 mg, 10 mg, [...] PRN, Radha Kevin DO, 10 mg at 12/19/241999 levETIRAcetam (Keppra) tablet 250 mg, 250 mg, Oral, BID, Mo Vieira MD, 250 mg at 12/20/24 0932 Lidocaine 4 % patch 1 patch, 1 patch, TransDERmal, Daily, Radha Kevin DO melatonin tablet 5 mg, 5 mg, Oral, Nightly PRN, Eileen Duncan, SECURITY FLEX OFFICER - FREIGHT ROUTER, 5 mg at 12/15/242055 naloxone (Narcan) injection 0.4 mg, 0.4 mg, IntraVENous, q5 min PRN, Radha Kevin DO ondansetron ODT (Zofran-ODT) disintegrating tablet 4 mg, 4 mg, Oral, q8h PRN OR ondansetron (Zofran) injection 4 mg, 4 mg, IntraVENous, q6h PRN, John Victor Manuel Pentz, DO oxyCODONE (Roxicodone) immediate release tablet 2.5 mg, 2.5 mg, Oral, q4h PRN, Radha Kuzmin, DO oxyCODONE (Roxicodone) immediate release tablet 5 mg, 5 mg, Oral, q4h PRN, Radha Kuzmin, DO, 5 mg at 12/20/24 0857 polyethylene [...] infusion, 250 mL/hr, IntraVENous, PRN, Ramonita Garnett, CABLE SPLICER HELPER sodium chloride 0.9 % infusion, 250 mL/hr, [...] 12/20/2024 0852 Last data filed at 12/19/2024 2217 Gross per 24 hour Intake -- Output 1 ml Net -1 ml Past Medical History: Medical History[1] LABS: CBC: Recent Labs 12/18/24 04212/18/24 0907 12/19/24 0027 [...] this interval not displayed. BMP: Recent Labs 12/18/24 04212/19/24 0027 12/20/24 0017 NA 128* 135* 134* K 4.4 3.9 4.3 CL 97* 102 106 CO2 25 25 21* BUN 18 11 15 CREATININE 3.46* 2.25* 2.84* GLUCOSE 89 73* 72* CALCIUM 7.3* 7.3* 6.5* ANIONGAP 6 8 7 LIVER PROFILE: Recent Labs 12/18/24 0420 12/19/24 0027 12/20/24 0017 AST 51* 49* 57* ALT [...] QT Interval 360 QTC Interval 451 P Clayton 61 QRS Clayton 20 T Wave Clayton 19 NC Interval 121 Impression Sinus rhythm Probable LVH [...] MD Division of Hospitalist Medicine Inpatient Medical Services/[facility] [1] Past Medical History: Diagnosis Date Chronic kidney disease (CKD) Hemodialysis patient ([facility]/HCC) (HCC) Wednesday, , Wednesday History of blood transfusion 02/27/2022 Hypertension Seizure ([facility]) Developed seizure-like activity on 02/24 during [...] q8h, Radha Kevin DO, 1,000 mg at 12/19/24 1816 alteplase (Cathflo Activase) 2 mg in sterile water 2 mL injection, 2 mg, IntraCATHeter, PRN, Sean Castaneda MD, 2 mg at 12/13/248 alteplase (Cathflo Activase) 2 mg in sterile water 2 mL injection, 2 mg, IntraCATHeter, PRN, Sean Castaneda MD, 2 mg at 12/13/242147 amLODIPine (Norvasc) tablet 10 mg, 10 mg, Oral, Daily, Radha eKvin DO, 10 mg at 12/20/24 0848 atorvastatin [...] mg, 500 mg, IntraVENous, Daily, Jeane Carlson, SECURITY FLEX OFFICER - FREIGHT ROUTER, Stopped at 12/19/24 1145 Lidocaine 4 % patch 1 patch, 1 patch, TransDERmal, Daily, Radhajacquelyn Paredesmin, DO melatonin tablet 5 mg, 5 mg, Oral, Nightly PRN, Eileen Duncan, SECURITY FLEX OFFICER - FREIGHT ROUTER, 5 mg at 12/15/242055 naloxone (Narcan) injection 0.4 mg, 0.4 mg, IntraVENous, q5 min PRN, Radha Paredesmin, DO ondansetron ODT (Zofran-ODT) disintegrating tablet 4 mg, 4 mg, Oral, q8h PRN OR ondansetron (Zofran) injection 4 mg, 4 mg, IntraVENous, q6h PRN, John Shepherd, oxyCODONE (Roxicodone) immediate release tablet 2.5 mg, 2.5 mg, Oral, q4h PRN, Radhajacquelyn Beltranzmin, DO oxyCODONE (Roxicodone) immediate release tablet 5 mg, 5 mg, Oral, q4h PRN, Radhajacquelyn Beltranzmin, DO, 5 mg at 12/11/24 2250 polyethylene glycol (PEG) 3350 (Miralax) packet 17 g, 17 g, Oral, Daily PRN, John Victor Manuel Pentz, DO, 17 g at 12/10/24 1204 pregabalin (Lyrica) capsule 25 mg, 25 mg, Oral, BID PRN, Radha Kuzmin, DO, 25 mg at 12/11/24 1052 QUEtiapine (SEROquel) tablet 12.5 mg, 12.5 mg, Oral, BID PRN, Eileen Duncan APRN - FREIGHT ROUTER sodium chloride 0.9 % infusion, 5-250 mL/hr, IntraVENous, PRN, John Victor Manuel Pentz, DO sodium chloride 0.9 % infusion, 250 mL/hr, IntraVENous, PRN, Ramonita Garnett, CABLE SPLICER HELPER sodium chloride 0.9 % infusion, 250 mL/hr, [...] that within the past year between 105-112#.) [place] Body Weight (lbs) (Calculated): 123 lbs [place] Body Weight (Kg) (Calculated): 56 kg % [place] Body Weight (Calculated): 94.6 % BMI (kg/m2) [...] Alexus Denney RD Contact: Secure chat or *[phone] Orthopedic Surgery Progress Note Orthopedic surgery paged regarding patient ability to perform spine exam. On evaluation, patient is seen resting in bedside chair. Patient becomes frustrated during encounter and states "isn't it late?" Discussed with patient it is 12:00PM and that this provider presented for spine exam. Patient refuses exam, and refuses to answer orientation questions. Please page ortho resident director community organization if/when patient mentation improves so that a formal spine exam may be performed. Orthopaedic surgery will sign off. Please page director community organization orthopaedic resident for questions or concerns. Images from the original note were not included. OCCUPATIONAL THERAPY [facility] Initial Evaluation Name/MRN: Apoorva Gonzalez ([id number]) Evaluation Date: 12/19/2024 Date of : 1950 Admission Date: 12/08/2024 8:06 PM Age: 74 y.o. Room/Bed: [facility] A Discharge Recommendation: Residential Facility Other: Continue to assess Assessment IMPRESSION: [...] Problem List Diagnosis Date Noted Moderate malnutrition ([facility]/HCC) ([facility]) 12/14/2024 Fall, initial encounter 12/09/2024 Fall (on)(from) sidewalk curb, initial encounter 12/09/2024 End stage congestive heart failure ([facility]) 11/13/2024 Wound dehiscence 11/12/2024 Seizures ([facility]) 11/02/2024 ESRD (end stage renal disease) ([facility]) 11/02/2024 Dialysis patient ([facility]) 11/02/2024 Sepsis, due to unspecified organism, unspecified whether acute organ dysfunction present ([facility]) 10/22/2024 Edema of left lower extremity 10/05/2024 COVID-19 09/14/2024 Shortness of breath 03/02/2024 Pulmonary edema, acute ([facility]) 02/19/2024 Gastrointestinal hemorrhage, unspecified gastrointestinal hemorrhage [...] of Care supervision is transferred to a [facility] Services Occupational Therapist. Goals and/or [...] 01/25/2024 Performed by Chrissy Gilman MD at [facility] ENDOSCOPY IR [facility]VC TUNNELED DIALYSIS CATHETER PLACEMENT 02/27/2022 IR CVC TUNNELED CATHETER PLACEMENT 02/27/2022 Candis Andrade MD [facility] SPECIAL PROCEDURES IR EMBOLIZATION 01/24/2024 IR EMBOLIZATION 01/24/2024 Jovan Glynn MD [facility] SPECIAL PROCEDURES VASCULAR SURGERY Left 11/02/2024 EXCISION OF LEFT UPPER EXTREMITY INFECTED GRAFT (JIM) VASCULAR SURGERY Left 11/05/2024 REVISION OR REPAIR, AV FISTULA (JIM) [facility] Geriatric Medicine Inpatient Consult Service Admission Date: [...] for pain --QTc= 451 ms on 12/11/24 --[place] PRN Seroquel for ONLY if danger to [...] PT/OT evaluation --[facility] --Vitamin D 60 --Check orthostatic vital signs as able --Palliative care following for ongoing goals of care conversations --Formation Fracturing Operator- supplements ordered BID Acute pain due [...] level 11.3 -As a new medication with SHIP'S SURVEYOR activity, sertraline may be a contributor to [...] female admitted to acute care from [facility] for fall on 12/08. Patient reportedly [...] 0.83 12/13/2024 Lab Results Component Value Date [id number] 1,419 (H) 12/13/2024 Lab Results Component Value [...] Daily, Radha Kevin DO, 10 mg at 12/19/24951 atorvastatin (Lipitor) tablet 40 mg, 40 mg, [...] mg, 500 mg, IntraVENous, Daily, Jeane Carlson, SECURITY FLEX OFFICER - FREIGHT ROUTER, Stopped at 12/18/24 1950 Lidocaine 4 % patch 1 patch, 1 patch, TransDERmal, Daily, Radha Paredesmin, DO melatonin tablet 5 mg, 5 mg, Oral, Nightly PRN, Eileen Duncan, SECURITY FLEX OFFICER - FREIGHT ROUTER, 5 mg at 12/15/242055 naloxone (Narcan) injection [...] 12.5 mg, Oral, BID PRN, PARK Christiansen FREIGHT ROUTER sodium chloride 0.9 % infusion, 5-250 mL/hr, [...] TID, Leticia Malissa, DO, Stopped at 12/19/24 1026 Images from the original note were not included. PHYSICAL THERAPY [facility] Initial Evaluation Name/MRN: Apoorva Gonzalez ([id number]) Evaluation Date: 12/19/2024 Date of : 1950 Admission Date: 12/08/2024 8:06 PM Age: 74 y.o. Room/Bed: W6-633/W6-633 A Discharge Recommendation: Residential Facility Assessment IMPRESSION: Pt is a 74 [...] Problem List Diagnosis Date Noted Moderate malnutrition ([facility]/HCC) ([facility]) 12/14/2024 Fall, initial encounter 12/09/2024 Fall (on)(from) sidewalk curb, initial encounter 12/09/2024 End stage congestive heart failure ([facility]) 11/13/2024 Wound dehiscence 11/12/2024 Seizures ([facility]) 11/02/2024 ESRD (end stage renal disease) ([facility]) 11/02/2024 Dialysis patient ([facility]) 11/02/2024 Sepsis, due to unspecified organism, unspecified whether acute organ dysfunction present ([facility]) 10/22/2024 Edema of left lower extremity 10/05/2024 COVID-19 09/14/2024 Shortness of breath 03/02/2024 Pulmonary edema, acute ([facility]) 02/19/2024 Gastrointestinal hemorrhage, unspecified gastrointestinal hemorrhage [...] of Care supervision is transferred to a [facility] Physical Therapist. Goals and/or treatment [...] 01/25/2024 Performed by Chrissy Gilman MD at [facility] ENDOSCOPY IR CVC TUNNELED DIALYSIS CATHETER PLACEMENT 02/27/2022 IR CVC TUNNELED CATHETER PLACEMENT 02/27/2022 Candis Andrade MD [facility] SPECIAL PROCEDURES IR EMBOLIZATION 01/24/2024 IR EMBOLIZATION 01/24/2024 Jovan Glynn MD [facility] SPECIAL PROCEDURES VASCULAR SURGERY Left [...] Intake/Output Summary (Last 24 hours) at 12/19/2024 08 Last data filed at 12/18/2024 1906 Gross per 24 hour Intake 469.06 ml Output -- Net 469.06 ml Past Medical History: Medical History[1] LABS: CBC: Recent Labs 12/17/2481212/17/24222012/18/2441912/18/24 0912/18/24200512/19/24 0027 WBC 12.8* -- 19.3* -- [...] this interval not displayed. BMP: Recent Labs 12/17/2482612/18/2441912/19/24 0027 NA 128* 128* 135* K 4.0 4.4 3.9 CL 95* 97* 102 CO2 26 25 25 BUN 14 18 11 CREATININE 2.91* 3.46* 2.25* GLUCOSE 110 89 73* CALCIUM 7.3* 7.3* 7.3* ANIONGAP 7 6 8 LIVER PROFILE: Recent Labs 12/17/2482612/18/2441912/19/24 0027 AST 41* 51* 49* ALT 8 [...] QT Interval 360 QTC Interval 451 P Clayton 61 QRS Clayton 20 T Wave Clayton 19 NC Interval 121 Impression Sinus rhythm Probable LVH [...] MD Division of Hospitalist Medicine Inpatient Medical Services/[facility] [1] Past Medical History: Diagnosis Date Chronic kidney disease (CKD) Hemodialysis patient (CMS/HCC) ([facility]) Wednesday, , Wednesday History of blood transfusion 02/27/2022 Hypertension Seizure ([facility]) Developed seizure-like activity on 02/24 during [...] Daily, Radha Kuzmin, DO, 10 mg at 12/16/24901 atorvastatin (Lipitor) tablet 40 mg, 40 mg, Oral, Nightly, John Benitez Pentz, DO, 40 mg at 12/15/242055 B complex-vitamin C-folic acid (Nephrocaps) capsule 1 capsule, 1 capsule, Oral, Daily, John Benitez Pentz, DO, 1 capsule at 12/16/24901 cholecalciferol (Vitamin D-3) tablet 5,000 Units, 5,000 Units, Oral, Daily, John Victor Manuel Pentz, DO, 5,000 Units at 12/16/24901 dextrose 5 % infusion, 100 mL/hr, IntraVENous, [...] PRN, Radhajacquelyn Beltranzmin, DO, 10 mg at 12/18/24 1854 levETIRAcetam in sodium chloride (Keppra) IVPB 500 mg, 500 mg, IntraVENous, Daily, Jeane Carlson, SECURITY FLEX OFFICER - FREIGHT ROUTER, Stopped at 12/18/24 1950 Lidocaine 4 % patch 1 patch, 1 patch, TransDERmal, Daily, Radha Paredesmin, DO melatonin tablet 5 mg, 5 mg, Oral, Nightly PRN, Eileen Duncan SECURITY FLEX OFFICER - FREIGHT ROUTER, 5 mg at 12/15/242055 naloxone (Narcan) injection [...] 12.5 mg, Oral, BID PRN, Eileen Duncan, SECURITY FLEX OFFICER - FREIGHT ROUTER sodium chloride 0.9 % infusion, 5-250 mL/hr, IntraVENous, PRN, John Stuartz, DO sodium chloride 0.9 % infusion, 250 mL/hr, IntraVENous, PRN, Ramonita Garnett, BRAY[place] sodium chloride 0.9 % infusion, 250 mL/hr, IntraVENous, PRN, Leticia Leonardo DO sodium chloride 0.9% (NS) flush 5-40 mL, 5-40 mL, IntraVENous, q12h, John Shepherd, DO, 10 mL at 12/19/24 0509 sodium chloride 0.9% (NS) flush 5-40 mL, 5-40 mL, IntraVENous, PRN, John Shepherd, DO stomahesive in petrolatum (ET Mix), , Topical, 3 times per day, Rosanna Perez APRN - FREIGHT ROUTER, Given at 12/18/242000 stomahesive in petrolatum (ET Mix), , Topical, PRN, Rosanna Perez APRN - TAMIR, Given at 12/13/24 1748 thiamine (Vitamin B1) 500 mg in sodium chloride 0.9 % 100 mL IVPB, 500 mg, IntraVENous, TID, Leticia Leonardo DO, Stopped at 12/18/24 2147 [3] Past Medical History: Diagnosis Date Chronic kidney disease (CKD) Hemodialysis patient (CMS/HCC) ([facility]) Wednesday, , Wednesday History of blood transfusion 02/27/2022 Hypertension Seizure ([facility]) Developed seizure-like activity on 02/24 during [...] needed to determine the need for possible correction IV. Thank you for allowing me to [...] 4.0 4.4 CL 98 95* 97* CO2 GLUCOSE 146* 110 89 CALCIUM 7.4* 7.3* [...] any questions or concerns Sean Castaneda MD [facility] Group - Infectious Diseases Attending Progress [...] 18 12/18/2024 0420 CREATININE 3.46 (H) 12/18/2024 0420 GLUCOSE 89 12/18/2024 0420 CALCIUM 7.3 (L) 12/18/2024 0420 PROT 5.5 (L) 12/18/2024 0420 BILITOT 0.5 12/18/2024 042 ALKPHOS 136 12/18/2024 0420 AST 51 (H) 12/18/2024 0420 ALT 6 12/18/2024 0420 PROCAL 68.03 (H) 10/05/2024 1419 PROCAL 19.25 (H) 09/15/2024 0308 PROCAL 76.25 (H) 09/14/2024 0541 Lab Results Component Value Date/Time WBC 19.3 (H) 12/18/2024 0420 HGB 8.8 (L) 12/18/2024 09 HGB 9.3 12/11/2024 2030 HCT 25.1 (L) 12/18/2024 0907 PLT 327 12/18/2024 042 LYMPHOPCT 9.0 (L) 12/14/2024 024 LYMPHOPCT 8 (L) 11/01/2024 031 MONOPCT 7.6 12/14/2024 024 MONOPCT 2 (L) 11/01/2024 031 BASOPCT 0.8 12/14/2024 024 BASOPCT 1 11/01/2024 031 NEUTROABS 10.4 (H) 12/14/2024 024 Micro: 12/12 BC: neg Lines: Vas cath [...] determined Orthopaedic surgery will follow. Please page director community organization orthopaedic resident for questions or concerns. Radiology reports reviewed. C3-4 findings felt to be degenerative, and not infectious. No plan for biopsy. Patient may follow up as needed with Dr. Benito for her neck pain. Additionally, several attempts have been made at spine exam, but these have not been successful given patient's ongoing altered mental status. Please page ortho resident director community organization if/when patient mentation improves so that a formal spine exam may be performed. Orthopaedic surgery will sign off. Please page director community organization orthopaedic resident for questions or concerns. Hospitalist [...] 12/18/2024 09 Last data filed at 12/17/2024 2102 Gross [...] 4.0 4.4 CL 98 95* 97* CO2 BUN 10 14 18 CREATININE 2.66* 2.91* 3.46* GLUCOSE 146* 110 89 CALCIUM 7.4* 7.3* 7.3* ANIONGAP 5 7 6 LIVER PROFILE: Recent Labs 12/16/24191412/17/2482612/18/24 042 AST 45* 41* 51* ALT 12 8 6 BILITOT 0.5 0.5 0.5 ALKPHOS 139 130 136 PROT 5.9* 5.6* 5.5* PT/INR: Recent Labs 12/17/24812 PROTIME 13.0* INR [...] Directive: DNR-CCA Anticipated Discharge - Date - [facility] 12/19 Extended Emergency Contact Information Primary Emergency Contact: BonillaDeshawn Mobile Relation: Brother Law Librarian needed? No Secondary Emergency Contact: Edward Ruggiero Mobile Relation: Significant Other Preferred language: Polish Law Librarian needed? No Leticia Leonardo DO Division of [...] on MRI with sedation plan for today [facility] Geriatric Medicine Inpatient Consult Service Admission Date: [...] for pain --QTc= 451 ms on 12/11/24 --[place] PRN Seroquel for ONLY if danger to [...] eval --Anticipate d/c to return to [facility] --Vitamin D 60 --Check orthostatic vital signs as able --Palliative care following for ongoing goals of care conversations --Formation Fracturing Operator- supplements ordered BID Acute pain due [...] level 11.3 -As a new medication with SHIP'S SURVEYOR activity, sertraline may be a contributor to [...] female admitted to acute care from [facility] for fall on 12/08. Patient reportedly [...] PM Result Value Ref Range PRODUCT CODE U3612T66 Unit Number [id number] Unit ABO O Unit RH POS Crossmatch interpretation COMP Dispense Status Transfused Blood Expiration Date Product Blood Type 5100 Unit Volume 300 mL PRODUCT CODE M3212E71 Unit Number [id number] Unit ABO O Unit RH POS Crossmatch interpretation COMP Dispense Status Transfused Blood Expiration Date Product Blood Type 5100 Unit Volume 300 mL PRODUCT CODE G3981V25 Unit Number [id number] Unit ABO O Unit RH POS Crossmatch [...] 0.83 12/13/2024 Lab Results Component Value Date [id number] 1,419 (H) 12/13/2024 Lab Results Component Value [...] Sean Castaneda MD, 2 mg at 12/13/24 6482 alteplase (Cathflo Activase) 2 mg in sterile [...] Daily, John Shepherd, DO, 1 capsule at 12/16/24 09 cholecalciferol (Vitamin D-3) tablet 5,000 Units, 5,000 Units, Oral, Daily, John Shepherd, DO, 5,000 Units at 12/16/24 09 dextrose [...] PRN, Chris Verdugo MD, 0.5 mg at 12/18/24909 labetalol (Normodyne,Trandate) injection 10 mg, 10 mg, IntraVENous, q6h PRN, Radhajacquelyn Beltranzmin, DO, 10 mg at 12/15/242055 levETIRAcetam (Keppra) tablet 500 mg, 500 mg, Oral, Daily, John Stuartz, DO, 500 mg at 12/16/24901 Lidocaine 4 % patch 1 patch, 1 patch, TransDERmal, Daily, Radha Paredesmin, DO melatonin tablet 5 mg, 5 mg, Oral, Nightly PRN, Eileen Duncan, SECURITY FLEX OFFICER - FREIGHT ROUTER, 5 mg at 12/15/242055 meropenem (Merrem) 1,000 [...] q12h, John Shepherd, DO, 10 mL at 12/18/24 0628 sodium [...] IntraVENous, TID, Leticia Leonardo, DO, Stopped at 12/18/24 1007 vancomycin (Vancocin) intermittent dosing (placeholder), , Other, RX Placeholder, Radha Kevin DO Facility-Administered Medications Ordered in Other Encounters: fentaNYL (Sublimaze) injection, , IntraVENous, PRN, Kanu Colmenares CRNA, 25 mcg at 12/18/24 1105 propofol (Diprivan) infusion, , IntraVENous, Continuous PRN, Kanu Colmenares CRNA, Last Rate: 19.008 mL/hr at 12/18/24 1105, 60 mcg/kg/min at 12/18/24 1105 [facility] PROGRESS NOTE Subjective Interval [...] Daily, John Shepherd, DO, 1 capsule at 12/16/24 09 cholecalciferol (Vitamin D-3) tablet 5,000 Units, 5,000 Units, Oral, Daily, John Stuartz, DO, 5,000 Units at 12/16/24 0902 dextrose 5 % infusion, 100 mL/hr, IntraVENous, PRN, Ramonita Garnett NP, Stopped at 12/17/24 0500 dextrose 50 % solution 12.5 g, 12.5 g, IntraVENous, PRN, Ramonita Garnett NP, 12.5 g at 12/12/24 223 gadopiclenol (Vueway) injection 5 mL, 5 mL, [...] 10 mg, IntraVENous, q6h PRN, Radha Kevin, , 10 mg at 12/15/242055 levETIRAcetam (Keppra) tablet 500 mg, 500 mg, Oral, Daily, John Stuartz, DO, 500 mg at 12/16/24901 Lidocaine 4 % patch 1 patch, 1 patch, TransDERmal, Daily, Radha Paredesmin, DO melatonin tablet 5 mg, 5 mg, Oral, Nightly PRN, Eileen Duncan, SECURITY FLEX OFFICER - FREIGHT ROUTER, 5 mg at 12/15/242055 meropenem (Merrem) 1,000 mg in sodium chloride 0.9 % 100 mL IVPB, 1,000 mg, IntraVENous, q12h, Shamar Bearden MD, Last Rate: 33.3 mL/hr at 12/17/24 1229, 1,000 mg at 12/17/24 122 naloxone (Narcan) injection 0.4 mg, 0.4 mg, [...] 12.5 mg, Oral, BID PRN, Eileen Duncan, SECURITY FLEX OFFICER - FREIGHT ROUTER sodium chloride 0.9 % infusion, 250 mL/hr, [...] q12h, John Shepherd, DO, 10 mL at 12/17/24 0445 sodium [...] Admit Date: 12/08/2024 PCP: Roxie Spain Room#: [id number] A BRIEF HOSPITAL COURSE: Per previous hospitalist's [...] +confused but knows year, month, and at [facility]. +restless. Reports diffuse pain but otherwise does not answer ROS. Case and plan discussed with patient and bedside nurse. All questions answered. NPO diet with enteral medications 24HR INTAKE/OUTPUT: Intake/Output Summary (Last 24 hours) at 12/17/2024 09 Last data filed at 12/17/2024 0605 Gross [...] 4.3 4.0 CL 99 98 95* CO2 26 BUN 7* 10 14 CREATININE 1.99* 2.66* [...] DNR-CCA Anticipated Discharge - Date - DC [facility] 12/19 Extended Emergency Contact Information Primary Emergency Contact: Deshawn Crystal Mobile Relation: Brother Law Librarian needed? No Secondary Emergency Contact: Edward Ruggiero Mobile Relation: Significant Other Preferred language: Polish Law Librarian needed? No Leticia Leonardo DO Division of [...] Intake/Output Summary (Last 24 hours) at 12/17/2024 0918 Last data filed at 12/17/2024 0605 Gross [...] 8:36 AM Mariposa Hidalgo PharmD (available on [employer]) [facility] PROGRESS NOTE Subjective Interval [...] Daily, John Shepherd DO, 5,000 Units at 12/16/24901 dextrose 5 % infusion, 100 mL/hr, IntraVENous, [...] day, Leticia Leonardo DO, 5,000 Units at 12/16/24 1302 HYDROmorphone [...] 5 mg, Oral, Nightly PRN, Eileen Duncan, SECURITY FLEX OFFICER - FREIGHT ROUTER, 5 mg at 12/15/242055 meropenem (Merrem) 1,000 mg in sodium chloride 0.9 % 100 mL IVPB, 1,000 mg, IntraVENous, q12h, Shamar Bearden MD, Last Rate: 33.3 mL/hr at 12/16/24 1256, 1,000 mg at 12/16/24 1256 naloxone (Narcan) injection 0.4 mg, 0.4 mg, IntraVENous, q5 min PRN, Radha Kuzmin, DO ondansetron ODT (Zofran-ODT) disintegrating tablet 4 mg, 4 mg, Oral, q8h PRN OR ondansetron (Zofran) injection 4 mg, 4 mg, IntraVENous, q6h PRN, John Victor Manuel Pentz, DO oxyCODONE (Roxicodone) immediate release tablet [...] 12.5 mg, Oral, BID PRN, Eileen Duncan, SECURITY FLEX OFFICER - FREIGHT ROUTER sodium chloride 0.9 % infusion, 250 mL/hr, IntraVENous, PRN, John Benitez Pentz, DO sodium chloride 0.9 % infusion, 5-250 mL/hr, IntraVENous, PRN, John Victor Manuel Pentz, DO sodium chloride 0.9 % infusion, 250 mL/hr, IntraVENous, PRN, Ramonita Garnett, BRAYDEN sodium chloride 0.9% (NS) flush 5-40 mL, 5-40 mL, IntraVENous, q12h, John Benitez Pentz, DO, 10 mL at 12/16/24 0512 sodium [...] Results Component Value Date VANCOTROUGH 27.2 10/26/2024 ROBERT 13.7 12/16/2024 Give Vancomycin 750 mg once [...] 11:04 AM Mariposa Hidalgo PharmD (available on [employer]) Hospitalist Progress Note 12/16/2024 Subjective: Admit Date: [...] History: Medical History[1] LABS: CBC: Recent Labs 12/14/24 02412/15/24 0802 12/16/24 0020 WBC 13.1* 12.0* 10.3 RBC 2.56* 2.77* 2.76* HGB 7.5* 8.3* 8.2* HCT 23.6* 25.6* 24.9* MCV 92.2 92.4 90.2 RDW 17.2* 17.2* 17.2* PLT 305 363 394 BMP: Recent Labs 12/14/24 0240 12/15/24 0802 12/16/24 0020 NA 130* 134* 132* K 3.7 4.4 4.0 CL 96* 101 99 CO2 BUN 26* 12 7* CREATININE 4.37* 2.80* 1.99* GLUCOSE 95 65* 98 CALCIUM 7.5* 7.8* 7.5* ANIONGAP 9 9 8 LIVER PROFILE: Recent Labs 12/14/24 0240 12/15/24 0802 12/16/24 0020 AST 50* 53* 52* [...] Emergency Contact: Deshawn Crystal Mobile Relation: Brother Law Librarian needed? No Secondary Emergency Contact: Edward Ruggiero Mobile Relation: Significant Other Preferred language: Polish Law Librarian needed? No Leticia Leonardo DO Division of Hospitalist Medicine [facility] [1] Past Medical History: Diagnosis Date Chronic kidney disease (CKD) Hemodialysis patient (CMS/HCC) ([facility]) Wednesday, , Wednesday History of blood transfusion 02/27/2022 Hypertension Seizure ([facility]) Developed seizure-like activity on 02/24 during [...] lower extremity edema Data: Labs: Recent Labs 12/13/244412/14/24 0240 12/15/24 0802 WBC 16.5* 13.1* 12.0* HGB 8.0* 7.5* 8.3* HCT 25.3* 23.6* 25.6* MCV 92.0 92.2 92.4 PLT 312 305 363 Recent Labs 12/13/244412/14/24 0240 12/15/24 0802 NA 134* 130* 134* [...] or concerns Pipe Soto MD [facility] [place] [phone] [facility] Geriatric Medicine Inpatient Consult Service Admission Date: [...] for pain --QTc= 451 ms on 12/11/24 --[place] PRN Seroquel for ONLY if danger to [...] eval --Anticipate d/c to return to [facility] --Vitamin D 60 --Check orthostatic vital signs as able --Palliative care following for ongoing goals of care conversations --Formation Fracturing Operator- supplements ordered BID Acute pain due [...] hemodialysis sessions. -As a new medication with SHIP'S SURVEYOR activity, sertraline may be a contributor to [...] female admitted to acute care from [facility] for fall on 12/08. Patient reportedly [...] 0.83 12/13/2024 Lab Results Component Value Date [id number] 1,419 (H) 12/13/2024 Lab Results Component Value [...] day, Leticia Leonardo, DO, 5,000 Units at 12/15/24 0525 HYDROmorphone [...] 5 mg, Oral, Nightly PRN, Eileen Duncan, SECURITY FLEX OFFICER - FREIGHT ROUTER, 5 mg at 12/13/24 2202 meropenem (Merrem) [...] Oral, BID PRN, Eileen Duncan, PARK - FREIGHT ROUTER sodium chloride 0.9 % infusion, 250 mL/hr, IntraVENous, PRN, John Benitez Pentz, DO sodium chloride 0.9 % infusion, 5-250 mL/hr, IntraVENous, PRN, John Victor Manuel Pentz, DO sodium chloride 0.9 % infusion, 250 mL/hr, IntraVENous, PRN, Ramonita Garnett, BRAYDEN sodium chloride 0.9% (NS) flush 5-40 mL, 5-40 mL, IntraVENous, q12h, John Benitez Pentz, DO, 10 mL at 12/15/24 0526 sodium [...] from the original note were not included. [facility] Wound Care Progress Note Apoorva Gonzalez [...] apply ET mix TID and PRN, leave HYDROELECTRIC STATION OPERATOR -P500 bed -waffle chair cushion -Q2hr/PRN turns -glide sheets for T&R -continence checks Q1-2 Hrs/PRN Nutritional support Wound Care to follow Recommend to follow up at [facility] Outpatient wound care center after hospital [...] 01/25/2024 Performed by Chrissy Gilman MD at [facility] ENDOSCOPY IR CVC TUNNELED DIALYSIS CATHETER PLACEMENT 02/27/2022 IR CVC TUNNELED CATHETER PLACEMENT 02/27/2022 Candis Andrade MD [facility] SPECIAL PROCEDURES IR EMBOLIZATION 01/24/2024 IR EMBOLIZATION 01/24/2024 Jovan Glynn MD [facility] SPECIAL PROCEDURES VASCULAR SURGERY Left [...] K 4.2 3.7 CL 100 96* CO2 BUN 22 26* CREATININE 3.82* 4.37* GLUCOSE [...] hemodialysis - Dialysis on /W/ -Nephrology following - fluid overload on CXR Hypertensive urgency -As needed labetalol Seizure disorder -Continue home Keppra Left hip pain -X-rays with no acute abnormality Hypokalemia - resolved Hyponatremia - mild Advance Directive: DNR-CCA Anticipated Discharge - Date - DC SNF 12/18 Extended Emergency Contact Information Primary Emergency Contact: Deshawn Crystal Mobile Relation: Brother Law Librarian needed? No Secondary Emergency Contact: Edward Ruggiero Mobile Relation: Significant Other Preferred language: Polish Law Librarian needed? No Leticia Leonardo DO Division of Hospitalist Medicine [facility] [1] Past Medical History: Diagnosis Date Chronic kidney disease (CKD) Hemodialysis patient (CMS/HCC) ([facility]) Wednesday, , Wednesday History of blood transfusion 02/27/2022 Hypertension Seizure ([facility]) Developed seizure-like activity on 02/24 during [...] 92.2 PLT 332 312 305 Recent Labs 12/12/24 0103 12/13/24 0045 12/14/24 0240 NA 137 134* 130* [...] any questions or concerns Pipe Soto MD [facility] [place] [phone] Spiritual Care Note [facility] Palliative Care Patient Name:Apoorva Gonzalez Chief Complaint: Chief Complaint Patient presents with Fall Pt presents to ED for mechanical fall while at dinner. Pt family states pt fell backwards and hit her head and now has lump on head, denies LOC. Denies blood thinners. Reason for visit: Glass Production 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 Consult Services Provided To:patient and care team [...] follow-up on 12/18. Please reach out to director community organization provider if more urgent follow up is necessary. Assessment/Plan Goals of care - Apoorva Gonzalez lacks capacity for medical decision-making due to encephalopathy. - legal surrogate decision maker is HCPOA, Brother Deshawn Crystal ( ) Alternate is s/o Edward Ruggiero [phone]) -goals of care include: 1) Goal is [...] History of seizures - remains on home [facility] Palliative Care Encounter -Code Status: DNR-CCA - will continue to follow for ongoing monitoring of progression of encephalopathy as well as for appropriateness for hospice care due to ESRD, sepsis, encephalopathy - was residing at [facility] Time Stamp: Total of 50 minutes spent [...] Management Advanced Directives: Health Care Power of Segmental Paving Supervisor, DNR Functional Assessment: PPS 40% mainly in bed; can't do any work/extensive disease; mainly assistance; normal or reduced intake; full or drowsy or confusion Prognosis: uncertain at this time Spiritual Assessment: No spiritual distress identified Bereavement and Grief: To Be Determined PDMP/OARRS Reviewed: Yes-reviewed Social history: Marital status: Children: unknown Living status: [facility] Work history: unknown [place] status: No Yarsani: None ROS: See palliative care ROS/ESAS below; Detail ROS unable to be obtained due to patient's mental status Avon Symptom Assessment Score [place] Score Pain Score (if non-verbal, add .FLACC [...] relaxed Total Score: 3 Family Meeting: Participants: POA Family meeting was [...] Transition Note Initiated: yes Chris Verdugo MD [facility] Geriatric Medicine Inpatient Consult Service Admission Date: [...] for pain --QTc= 451 ms on 12/11/24 --[place] PRN Seroquel for ONLY if danger to [...] eval --Anticipate d/c to return to [facility] --Vitamin D 60 --Check orthostatic vital signs as able --Palliative care following --Formation Fracturing Operator- supplements ordered BID Acute pain due [...] hemodialysis sessions. -As a new medication with SHIP'S SURVEYOR activity, sertraline may be a contributor to [...] female admitted to acute care from [facility] for fall on 12/08. Patient reportedly [...] 0.83 12/13/2024 Lab Results Component Value Date [id number] 1,419 (H) 12/13/2024 Lab Results Component Value [...] John Shepherd DO, 40 mg at 12/13/24 220 B complex-vitamin C-folic acid (Nephrocaps) capsule 1 capsule, 1 capsule, Oral, Daily, John Shepherd DO, 1 capsule at 12/14/24 0801 cholecalciferol (Vitamin D-3) tablet 5,000 Units, 5,000 Units, Oral, Daily, John Benitez Rishi, DO, 5,000 Units at 12/14/24 0801 dextrose 5 % infusion, 100 mL/hr, IntraVENous, PRN, Ramonita Garnett NP, Last Rate: 100 mL/hr at 12/13/24 2242, 100 mL/hr at 12/13/24 2242 dextrose 50 % solution 12.5 g, 12.5 g, IntraVENous, PRN, Ramonita Garnett NP, 12.5 g at 12/12/24 2230 gadopiclenol (Vueway) injection 5 mL, 5 mL, IntraVENous, Once PRN, Radha Kevin, glucagon (human recombinant) injection 1 mg, 1 [...] 5 mg, Oral, Nightly PRN, Eileen Duncan, SECURITY FLEX OFFICER - FREIGHT ROUTER, 5 mg at 12/13/24 220 meropenem (Merrem) [...] 12.5 mg, Oral, BID PRN, Eileen Duncan, SECURITY FLEX OFFICER - FREIGHT ROUTER sevelamer carbonate (Renvela) tablet 800 mg, 800 mg, Oral, TID WC, John Shepherd, DO, 800 mg at 12/14/24 0801 sodium chloride 0.9 % infusion, 250 mL/hr, IntraVENous, PRN, John Benitez Pentz, DO sodium chloride 0.9 % infusion, 5-250 mL/hr, IntraVENous, PRN, John Benitez Pentz, DO sodium chloride 0.9 % infusion, 250 mL/hr, IntraVENous, PRN, Ramonita Garnett, BRAYDEN sodium chloride 0.9% (NS) flush 5-40 mL, 5-40 mL, IntraVENous, q12h, John Stuartz, DO, 10 mL at 12/12/24 0443 sodium [...] Admit Date: 12/08/2024 PCP: Roxie Spain Room#: [id number] A BRIEF HOSPITAL COURSE: Per previous hospitalist's [...] History: Medical History[1] LABS: CBC: Recent Labs 12/12/2410212/13/24 0045 12/14/24 0240 WBC 11.5* 16.5* 13.1* RBC 2.69* 2.75* 2.56* HGB 8.0* 8.0* 7.5* HCT 24.8* 25.3* 23.6* MCV 92.2 92.0 92.2 RDW 17.8* 17.6* 17.2* PLT 332 312 305 BMP: Recent Labs 12/12/2410212/13/244412/14/24 0240 NA 137 134* 130* K 4.1 [...] bleeding ESRD on hemodialysis - Dialysis on /W/F -Nephrology following - fluid overload on CXR Hypertensive urgency -As needed labetalol Seizure disorder -Continue home Keppra Left hip pain -X-rays with no acute abnormality Hypokalemia - resolved Hyponatremia - mild Advance Directive: DNR-CCA Anticipated Discharge - Date - [facility] 12/16 Extended Emergency Contact Information Primary Emergency Contact: Deshawn Crystal Mobile Relation: Brother Law Librarian needed? No Secondary Emergency Contact: Edward Ruggiero Mobile Relation: Significant Other Preferred language: Polish Law Librarian needed? No Leticia Leonardo DO Division of [...] from the original note were not included. [facility] Wound Care Progress Note Apoorva Gonzalez [...] resting in bed. At time of visit, air route traffic controller at bedside setting up. Treatment noted. PAST [...] to follow Recommend to follow up at [facility] Outpatient wound care center after hospital discharge. Any questions or concerns please secure chat "[facility] wound/ostomy". Thank you for the [...] Chronic kidney disease (CKD) Hemodialysis patient (CMS/HCC) ([facility]) Wednesday, , Wednesday History of blood transfusion 02/27/2022 Hypertension Seizure ([facility]) Developed seizure-like activity on 02/24 during hospital admission [2] Past Surgical History: Procedure Laterality Date AV FISTULA PLACEMENT Left 08/07/2022 COLONOSCOPY N/A 01/25/2024 Performed by Chrissy Gilman MD at [facility] ENDOSCOPY IR CVC TUNNELED DIALYSIS CATHETER PLACEMENT 02/27/2022 IR CVC TUNNELED CATHETER PLACEMENT 02/27/2022 Candis Andrade MD [facility] SPECIAL PROCEDURES IR EMBOLIZATION 01/24/2024 IR EMBOLIZATION 01/24/2024 Jovan Glynn MD [facility] SPECIAL PROCEDURES VASCULAR SURGERY Left [...] from the original note were not included. [facility] - Infectious Diseases Attending Progress [...] Component Value Date/Time NA 130 (L) 12/14/2024 0240 K 3.7 12/14/2024 0240 CL 96 (L) 12/14/2024 0240 CO2 25 12/14/2024 024 BUN 26 (H) 12/14/2024 024 CREATININE 4.37 (H) 12/14/2024 024 GLUCOSE 95 12/14/2024 024 CALCIUM 7.5 (L) 12/14/2024239 PROT 6.2 (L) 12/14/2024 024 BILITOT 0.4 12/14/2024 0240 ALKPHOS 131 12/14/2024 0240 AST 50 (H) 12/14/2024 0240 ALT 13 [...] 8 (L) 11/01/2024 0317 MONOPCT 7.6 12/14/2024 024 MONOPCT 2 (L) 11/01/2024 0317 BASOPCT 0.8 12/14/2024 024 BASOPCT 1 11/01/2024 031 NEUTROABS 10.4 (H) 12/14/2024 0240 Micro: 12/12/2024 - 2/ blood cultures show no growth at 48 [...] Bearden MD - 12/14/2024 4:44 PM EDT [facility] Infectious Disease Attending Note Patient [...] mg) by mouth Nightly. 03/02/22 12/06/24 Evan Joshua, SECURITY FLEX OFFICER - FREIGHT ROUTER levETIRAcetam (Keppra) 500 MG tablet Take 1 tablet (500 mg) by mouth daily. 03/02/22 12/06/24 Evan Joshua, SECURITY FLEX OFFICER - FREIGHT ROUTER magnesium hydroxide (Milk of Magnesia) 2400 MG/10ML [...] 10 min Stress: Stress Concern Present (12/09/2024) [place] [facility] - Occupational Stress Questionnaire Feeling of Stress : Very much Social Connections: Moderately Integrated (12/09/2024) Social Connection and Isolation Panel [NHANES] Frequency of Communication with Friends and Family: More than three times a week Frequency of Social Gatherings with Friends and Family: Three times a week Attends Congregation Services: 1 to 4 times per year [...] update plan of care accordingly. Please page director community organization orthopaedic resident for questions or concerns. [1] [...] 01/25/2024 Performed by Chrissy Gilman MD at [facility] ENDOSCOPY IR CVC TUNNELED DIALYSIS CATHETER PLACEMENT 02/27/2022 IR CVC TUNNELED CATHETER PLACEMENT 02/27/2022 Candis Andrade MD [facility] SPECIAL PROCEDURES IR EMBOLIZATION 01/24/2024 IR EMBOLIZATION 01/24/2024 Jovan Glynn MD [facility] SPECIAL PROCEDURES VASCULAR SURGERY Left [...] 1,000 mg, 1,000 mg, Oral, q8h, Radha Reggiemin, DO, 1,000 mg at 12/13/24 0537 amLODIPine (Norvasc) tablet 10 mg, 10 mg, Oral, Daily, Radha Kevin DO, 10 mg at 12/13/24 0911 atorvastatin (Lipitor) tablet 40 mg, 40 mg, Oral, Nightly, John Shepherd DO, 40 mg at 12/12/24 2116 B [...] Daily, John Shepherd DO, 5,000 Units at 12/13/24 0912 dextrose 5 % infusion, 100 mL/hr, IntraVENous, PRN, Ramonita Garnett NP, Last Rate: 100 mL/hr at 12/13/24 1448, 100 mL/hr at 12/13/24 1448 dextrose 50 % solution 12.5 g, 12.5 g, IntraVENous, PRN, Ramonita Garnett NP, 12.5 g at 12/12/24 2230 gadopiclenol (Vueway) injection 5 mL, 5 mL, IntraVENous, Once PRN, Radha Kuzmin, DO glucagon (human recombinant) injection 1 mg, [...] Daily, John Shepherd, DO, 500 mg at 12/13/24 0912 Lidocaine 4 % patch 1 patch, 1 patch, TransDERmal, Daily, Radha Paredesmin, DO melatonin tablet 5 mg, 5 mg, Oral, Nightly PRN, Eileen Duncan, PARK - TAMIR naloxone (Narcan) injection 0.4 mg, 0.4 mg, IntraVENous, q5 min PRN, Radhajacquelyn Paredesmin, DO ondansetron ODT (Zofran-ODT) disintegrating tablet 4 mg, 4 mg, Oral, q8h PRN OR ondansetron (Zofran) injection 4 mg, 4 mg, IntraVENous, q6h PRN, John Victor Manuel Pentz, DO oxyCODONE (Roxicodone) immediate release tablet [...] Daily, John Stuartz, DO, 250 mg at 12/13/24 0912 vancomycin (Vancocin) intermittent dosing (placeholder), , Other, RX Placeholder, Radha Paredesmin, DO [4] Family History Problem Relation Name [...] [] CrCl ml/min (Cockcroft-Gault, if ROLANDO, no PREHEMMER) Infectious Diagnosis: Bone and joint infection (discitis) [...] 2:03 PM Hilda Wilkes RPh (available on [employer]) Hospitalist Progress Note 12/13/2024 Subjective: Admit Date: 12/08/2024 PCP: Roxie Spain Room#: [id number] A BRIEF HOSPITAL COURSE: Per previous hospitalist's [...] History: Medical History[1] LABS: CBC: Recent Labs 12/11/2422412/11/24202912/12/2410212/13/24 0045 WBC 12.1* -- 11.5* 16.5* RBC 2.57* -- 2.69* 2.75* HGB 7.7* 9.3 8.0* 8.0* HCT 23.6* -- 24.8* 25.3* MCV 91.8 -- 92.2 92.0 RDW 18.3* -- 17.8* 17.6* PLT 300 -- 332 312 BMP: Recent Labs 12/11/2422412/12/2410212/13/24 0045 NA 138 137 134* K 3.7 4.1 4.2 CL 100 100 100 CO2 27 26 25 BUN 32* 38* 22 CREATININE 4.96* 5.60* 3.82* GLUCOSE 74* 77* 47* CALCIUM 8.0* 7.8* 7.8* ANIONGAP 11 11 9 LIVER PROFILE: Recent Labs 12/11/2422412/12/24102 AST 41* 36* ALT 13 10 BILITOT [...] Anticipated Discharge - Date - DC SNF 12/15 Extended Emergency Contact Information Primary Emergency Contact: Deshawn Crystal Mobile Relation: Brother Law Librarian needed? No Secondary Emergency Contact: Edward Ruggiero Mobile Relation: Significant Other Preferred language: Polish Law Librarian needed? No Leticia Leonardo DO Division of Hospitalist Medicine [facility] [1] Past Medical History: Diagnosis [...] extremity edema Data: Labs: Recent Labs 12/11/2422412/11/24202912/12/2410212/13/24 0045 WBC 12.1* -- 11.5* 16.5* HGB 7.7* 9.3 8.0* 8.0* HCT 23.6* -- 24.8* 25.3* MCV 91.8 -- 92.2 92.0 PLT 300 -- 332 312 Recent Labs 12/11/2422412/12/2410212/13/24 0045 NA 138 137 134* K 3.7 [...] any questions or concerns Pipe Soto MD [facility] [place] [phone] Orthopedic Surgery Progress Note The following x-rays were ordered and subsequently completed. My interpretation is as follows: Left shoulder XR (12/13/24): no acute fracture or dislocation. Moderate degenerative changes of the left glenohumeral joint appreciated Radiology reports to be reviewed. Orthopaedic surgery will follow for MRI completion and update plan as indicated. Please page director community organization orthopaedic resident for questions or concerns. Images from the original note were not included. PHYSICAL THERAPY [facility] Name/MRN: Apoorva Gonzalez ([id number]) Date: 12/13/2024 Plans for MRI with sedation, also has pending shoulder x-rays. Will continue to hold and assess at a later time as able. Guilherme Tavares PT [facility] Geriatric Medicine Inpatient Consult Service Admission Date: [...] 12/12/24 --Await PT/OT eval --Anticipate d/c to D, [facility] --Vitamin D 60 --Check orthostatic vital signs as able --Palliative care following --Will consult bilingual patient support caseworker Acute pain due to trauma -Management per [...] hemodialysis sessions. -As a new medication with SHIP'S SURVEYOR activity, sertraline may be a contributor to [...] discussed with RN, geriatric pharmacist, and nephrology CABLE SPLICER HELPER. Follow-up: will follow with you Subjective Chief Complaint: fall Geriatrics consulted for fall HPI- The patient is known to me. 74 y.o. year-old female admitted to acute care from [facility] for fall on 12/08. Patient reportedly [...] MRI. Patient had a unwitnessed fall overnight. PREHEMMER called and CT head with no acute intracranial abnormalities. comedian placed at bedside. Labs reviewed with sodium [...] be more comfortable than yesterday. Spoke to safety instruction police officer at bedside with patient moaning. She has [...] 3.30 09/14/2024 Lab Results Component Value Date [id number] >2,000 (H) 09/14/2024 Lab Results Component Value [...] 1,000 mg, 1,000 mg, Oral, q8h, Radha Reggiemin, DO, 1,000 mg at 12/13/24 0537 amLODIPine (Norvasc) tablet 10 mg, 10 mg, Oral, Daily, Radha Kevin, DO, 10 mg at 12/13/24 0911 atorvastatin [...] Daily, John Shepherd DO, 5,000 Units at 12/13/24 0912 dextrose [...] Daily, John Shepherd, DO, 500 mg at 12/13/24 0912 Lidocaine 4 % patch 1 patch, 1 patch, TransDERmal, Daily, Radha Paredesmin, DO melatonin tablet 5 mg, 5 mg, Oral, Nightly PRN, Eileen Duncan, SECURITY FLEX OFFICER - FREIGHT ROUTER naloxone (Narcan) injection 0.4 mg, 0.4 mg, [...] Victor Manuel Pentz, DO, 800 mg at 12/13/24 0912 [...] Victor Manuel Pentz, DO, 250 mg at 12/13/24 0912 vancomycin (Vancocin) intermittent dosing (placeholder), , Other, RX Placeholder, Radha Kevin, DO To schedule mri with sedation please call [phone] Images from the original note were not included. OCCUPATIONAL THERAPY [facility] Name/MRN: Apoorva Gonzalez ([id number]) Date: 12/12/2024 Attempt Note Attempted OT eval. Awaiting results of C-spine MRI. ~Jelly Gleason MS, OTR/L [facility] Geriatric Medicine Inpatient Consult Service Admission Date: [...] --Anticipate d/c to TBD, anticipate return to [facility] --Vitamin D 60 --Check orthostatic [...] CrCl Plan discussed with RN and nephrology CABLE SPLICER HELPER. Follow-up: will follow with you Subjective Chief Complaint: fall Geriatrics consulted for fall HPI- The patient is known to me. 74 y.o. year-old female admitted to acute care from [facility] for fall on 12/08. Patient reportedly [...] MRI with HD after. Spoke to Nephrology CABLE SPLICER HELPER due to mentation concerns and missed HD. [...] 360 ms QTC Interval 451 ms P Clayton 61 degrees QRS [place] 20 degrees T Wave [place] 19 degrees NC Interval 121 ms Blood Gas, Arterial Collection [...] 3.30 09/14/2024 Lab Results Component Value Date [id number] >2,000 (H) 09/14/2024 Lab Results Component Value [...] Daily, Radha Paredesmin, DO, 10 mg at 12/12/24856 atorvastatin (Lipitor) tablet 40 mg, 40 mg, Oral, Nightly, John Shepherd, DO, 40 mg at 12/10/242123 B complex-vitamin C-folic acid (Nephrocaps) capsule 1 capsule, 1 capsule, Oral, Daily, John Shepherd, DO, 1 capsule at 12/11/24812 cefepime (Maxipime) 1,000 mg in sodium chloride 0.9 % 50 mL IVPB, 1,000 mg, IntraVENous, q12h, Jacob Laguna DO, Stopped at 12/12/24 1406 cholecalciferol (Vitamin D-3) tablet 5,000 Units, 5,000 Units, Oral, Daily, John Shepherd, DO, 5,000 Units at 12/11/24812 gadopiclenol (Vueway) injection 5 mL, 5 mL, IntraVENous, Once PRN, Radha Kevin, DO hydrALAZINE (Apresoline) injection 10 mg, 10 mg, IntraVENous, q4h PRN, Radha Kevin, DO, 10 mg at 12/09/24 1521 labetalol (Normodyne,Trandate) injection 10 mg, 10 mg, IntraVENous, q6h PRN, Radha Kevin, DO, 10 mg at 12/11/241999 levETIRAcetam (Keppra) tablet 500 mg, 500 mg, Oral, Daily, John Shepherd, DO, 500 mg at 12/12/24856 Lidocaine 4 % patch 1 patch, 1 patch, TransDERmal, Daily, Radha Kevin, melatonin tablet 5 mg, 5 mg, Oral, Nightly, John hSepherd, DO, 5 mg at 12/10/242123 naloxone (Narcan) injection 0.4 mg, 0.4 mg, IntraVENous, q5 min PRN, Radha Paredesmin, DO ondansetron ODT (Zofran-ODT) disintegrating tablet 4 mg, 4 mg, Oral, q8h PRN OR ondansetron (Zofran) injection 4 mg, 4 mg, IntraVENous, q6h PRN, John Victor Manuel Pentz, DO oxyCODONE (Roxicodone) immediate release tablet [...] Daily, Radha Kuzmin, DO, 25 mg at 12/12/24 0856 sevelamer carbonate (Renvela) tablet 800 mg, 800 mg, Oral, TID WC, John Victor Manuel Pentz, DO, 800 mg at 12/11/24 1805 [...] dosing (placeholder), , Other, RX Placeholder, Radha Paredesmin, DO Hospitalist Progress Note 12/12/2024 Subjective: Admit Date: 12/08/2024 PCP: Roxie Spain Room#: W6-340/[id number] A BRIEF HOSPITAL COURSE: Per previous hospitalist's [...] Medical History[1] LABS: CBC: Recent Labs 12/10/2454112/11/2422412/11/24202912/12/24 010 WBC 10.2 12.1* -- 11.5* RBC 2.51* 2.57* -- 2.69* HGB 7.3* 7.7* 9.3 8.0* HCT 23.2* 23.6* -- 24.8* MCV 92.4 91.8 -- 92.2 RDW 18.6* 18.3* -- 17.8* PLT 293 300 -- 332 BMP: Recent Labs 12/10/2454112/11/2422412/12/24102 NA 135* 138 137 K 3.4* 3.7 4.1 CL 99 100 100 CO2 26 27 26 BUN 25* 32* 38* CREATININE 4.24* 4.96* 5.60* GLUCOSE 74* 74* 77* CALCIUM 7.5* 8.0* 7.8* ANIONGAP 10 11 11 LIVER PROFILE: Recent Labs 12/10/2454112/11/2422412/12/24102 AST 36* 41* 36* ALT 11 13 [...] Directive: DNR-CCA Anticipated Discharge - Date - [place] Home 12/13 Extended Emergency Contact Information Primary Emergency Contact: Deshawn Crystal Mobile Relation: Brother Law Librarian needed? No Secondary Emergency Contact: Edward Ruggiero Mobile Relation: Significant Other Preferred language: Polish Law Librarian needed? No Leticia Leonardo DO Division of Hospitalist Medicine [employer] [facility] [employer] [1] Past Medical History: Diagnosis Date Chronic kidney disease (CKD) Hemodialysis patient ([facility]) ([facility]) Wednesday, , Wednesday History of blood [...] original note were not included. PHYSICAL THERAPY [facility] Name/MRN: Apoorva Gonzalez ([id number]) Date: 12/12/2024 Pt with pending MRI noted [...] lower extremity edema Data: Labs: Recent Labs 12/10/2454112/11/2422412/11/24 2030 12/12/24 0103 [...] any questions or concerns Pipe Soto MD [facility] [phone] MRI attempted again; pt. Unable to tolerate [...] [] CrCl ml/min (Cockcroft-Gault, if ROLANDO, no PREHEMMER) - to have HD today (did not [...] (Pulse Dosing). Lab Results Component Value Date CAROLE 27.2 10/26/2024 ROBERT 19.7 10/24/2024 Give Vancomycin 1000 mg x1 based on patient age, weight, renal status and infectious diagnosis (19 mg/kg). Will adjust dose/frequency if needed according to level. Follow renal status closely. Orders placed. Thank you for this consult. Please page/call with questions. Date: 12/12/24 Time: 8:36 AM Hilda Wilkes RPh (available on ChatLingualku) Images from the original note were not included. OCCUPATIONAL THERAPY [facility] Name/MRN: Apoorva Gonzalez ([id number]) Date: 12/11/2024 OT eval on hold pending [...] Medical History[1] LABS: CBC: Recent Labs 12/09/24 1023 12/10/24 0542 12/11/24 0225 WBC 9.7 10.2 12.1* RBC 2.56* 2.51* 2.57* HGB 7.6* 7.3* 7.7* HCT 23.5* 23.2* 23.6* MCV 91.8 92.4 91.8 RDW 18.7* 18.6* 18.3* PLT 311 293 300 BMP: Recent Labs 12/09/24 1023 12/10/24 0542 12/11/24 0225 NA 136 135* 138 K 3.1* 3.4* 3.7 CL 96* 99 100 CO2 32* 26 27 BUN 19 25* 32* CREATININE 3.73* 4.24* 4.96* GLUCOSE 79* 74* 74* CALCIUM 7.6* 7.5* 8.0* ANIONGAP 8 10 11 LIVER PROFILE: Recent Labs 12/08/24 2229 12/10/24 0542 12/11/24224 AST 46* 36* 41* ALT 14 11 [...] following mgmt was pursued: - as above CORE MEASURE DATA SIRS Criteria Sepsis Criteria [...] Primary Emergency Contact: BonillaDeshawn Mobile Relation: Brother Law Librarian needed? No Secondary Emergency Contact: Edward Ruggiero Mobile Relation: Significant Other Preferred language: Polish Law Librarian needed? No Radha Kevin DO Division of Hospitalist Medicine Acute care [facility] [1] Past Medical History: Diagnosis Date Chronic kidney disease (CKD) Hemodialysis patient ([facility]/HCC) ([facility]) Wednesday, , Wednesday History of blood transfusion 02/27/2022 Hypertension Seizure ([facility]) Developed seizure-like activity on 02/24 during [...] edema Data: Labs: Recent Labs 12/09/24 1023 12/10/24 0542 12/11/24224 WBC 9.7 10.2 12.1* HGB 7.6* 7.3* 7.7* HCT 23.5* 23.2* 23.6* MCV 91.8 92.4 91.8 PLT 311 293 300 Recent Labs 12/09/24 1023 12/10/24 0542 12/11/24224 NA 136 135* 138 K 3.1* 3.4* [...] any questions or concerns Pipe Soto MD [facility] [phone] Images from the original note were not included. PHYSICAL THERAPY [facility] Name/MRN: Apoorva Gonzalez ([id number]) Date: 12/11/2024 PT held pending MRI c-spine [...] deltoids) Fluid Accumulation: No significant fluid accumulation Automotive Specialty Technician Strength: Not Performed Nutrition Assessment: 74yo F [...] Total Energy Requirements (kcals/day): 30-35 kcal/kg = 7336-6306 kcal/day Weight Used for Protein Requirements: Other [...] that within the past year between 105-112#.) [place] Body Weight (lbs) (Calculated): 123 lbs [place] Body Weight (Kg) (Calculated): 56 kg % [place] Body Weight (Calculated): 94.6 % BMI (kg/m2) [...] soon to determine Lilliana Manning RD Contact: *[phone] [facility] Geriatric Medicine Inpatient Consult Service Admission Date: [...] 3.30 09/14/2024 Lab Results Component Value Date [id number] >2,000 (H) 09/14/2024 Lab Results Component Value [...] Daily, Radha Kuzmin, DO, 10 mg at 12/11/24812 atorvastatin (Lipitor) tablet 40 mg, 40 mg, Oral, Nightly, John Shepherd DO, 40 mg at 12/10/242123 B complex-vitamin C-folic acid (Nephrocaps) capsule 1 capsule, 1 capsule, Oral, Daily, John Shepherd, DO, 1 capsule at 12/11/24812 cefepime (Maxipime) 1,000 mg in sodium chloride 0.9 % 50 mL IVPB, 1,000 mg, IntraVENous, q12h, Jacob Laguna DO, Last Rate: 100 mL/hr at 12/11/24 1057, 1,000 mg at 12/11/24 105 cholecalciferol (Vitamin D-3) tablet 5,000 Units, 5,000 Units, Oral, Daily, John Shepherd DO, 5,000 Units at 12/11/24812 hydrALAZINE (Apresoline) injection 10 mg, 10 mg, IntraVENous, q4h PRN, Radha Kevin DO, 10 mg at 12/09/24 152 labetalol (Normodyne,Trandate) injection 10 mg, 10 mg, IntraVENous, q6h PRN, Radha Kevin DO, 10 mg at 12/10/242123 levETIRAcetam (Keppra) tablet 500 mg, 500 mg, Oral, Daily, John Shepherd, , 500 mg at 12/11/24812 Lidocaine 4 % patch 1 patch, 1 patch, TransDERmal, Daily, Radha Kevin DO melatonin tablet 5 mg, 5 mg, Oral, Nightly, John Shepherd, DO, 5 mg at 12/10/242123 naloxone (Narcan) [...] Radha Kuzmin, DO, 5 mg at 12/11/24 0813 polyethylene glycol (PEG) 3350 (Miralax) packet 17 [...] Victor Manuel Pentz, DO, 800 mg at 12/11/24 0813 sodium chloride 0.9 % infusion, 250 mL/hr, [...] (Vial Mate), 20 mg/kg, IntraVENous, Once, John Victor Manuel Pentz, DO [facility]phrology Progress Note Nephrology following for ESRD. [...] and medication adjustments. Please message me through Blowtorch chat with any questions or concerns. Jose G Ramirez, 12/10/2024 2:34 PM [facility] [address] [place] [address], [address] [place] [id number] Office: [phone] [1] [START ON 12/11/2024] amLODIPine, 10 mg, [...] PLT 359 311 293 BMP: Recent Labs 12/08/24222812/09/24102212/10/24 0542 NA 135* 136 135* K 2.6* 3.1* 3.4* CL 94* 96* 99 CO2 30 32* 26 BUN 17 19 25* CREATININE 3.05* 3.73* 4.24* GLUCOSE 101 79* 74* CALCIUM 8.1* 7.6* 7.5* ANIONGAP 11 8 10 LIVER PROFILE: Recent Labs 12/08/24222812/10/24 0542 AST 46* 36* ALT 14 11 [...] Emergency Contact: Deshawn Crystal Mobile Relation: Brother Law Librarian needed? No Secondary Emergency Contact: Edward Ruggiero Mobile Relation: Significant Other Preferred language: Polish Law Librarian needed? No Radha Kevin DO Division of Hospitalist Medicine [facility] [1] Past Medical History: Diagnosis Date [...] Admit Date: 12/08/2024 PCP: Roxie Spain Room#: W6-863/W6-995 A Chief Complaint Patient presents with Fall [...] RDW 18.4* PLT 359 BMP: Recent Labs 12/08/24 222 NA 135* K 2.6* CL 94* CO2 [...] Emergency Contact: Deshawn Crystal Mobile Relation: Brother Law Librarian needed? No Secondary Emergency Contact: Edward Ruggiero Mobile Relation: Significant Other Preferred language: Polish Law Librarian needed? No Radha Kevin DO Division of Hospitalist Medicine Acute care [facility] [1] Past Medical History: Diagnosis Date [...] original note were not included. OCCUPATIONAL THERAPY [facility] Name/MRN: Apoorva Gonzalez ([id number]) Date: 12/09/2024 OT orders received and chart reviewed. MRI pending c-spine for r/o discitis, will await results prior to initiating OT eval. Jelly Fischer OT Images from the original note were not included. PHYSICAL THERAPY [facility] Name/MRN: Apoorva Gonzalez ([id number]) Date: 12/09/2024 PT orders received, chart review performed. Patient currently has c-spine MRI pending to r/o discitis. Will hold PT eval and await imaging results. Will re-attempt as patient is appropriate during acute hospital stay. Dinora Jaramillo PT documented in this encounter [facility] 12-18-2024 Hospital Discharge instructions Enriqueta Benton PA-C [...] Unit/Room#: W6-633/W6-633 A Discharging Unit Phone Number: [phone] Emergency Contact: Extended Emergency Contact Information Primary Emergency Contact: Deshawn Crystal Mobile Relation: Brother Law Librarian needed? No Secondary Emergency Contact: Edward Ruggiero Mobile Relation: Significant Other Preferred language: Polish Law Librarian needed? No Past Surgical History: Past Surgical History: Procedure Laterality Date AV FISTULA PLACEMENT Left 08/07/2022 COLONOSCOPY N/A 01/25/2024 Performed by Chrissy Gilman MD at [facility] ENDOSCOPY IR CVC TUNNELED DIALYSIS CATHETER PLACEMENT 02/27/2022 IR CVC TUNNELED CATHETER PLACEMENT 02/27/2022 Candis Andrade MD [facility] SPECIAL PROCEDURES IR EMBOLIZATION 01/24/2024 IR EMBOLIZATION 01/24/2024 Jovan Glynn MD [facility] SPECIAL PROCEDURES VASCULAR SURGERY Left [...] assistance Toileting Total assistance Feeding Minimal assistance Paper Colorer Minimal assistance Med Delivery no Wound Care [...] Date: 12/12 Discharging to Facility/ Agency Name: [facility] Address: [address] [place] [address] Dialysis Facility (if applicable) Name: [facility] Address: Dialysis Schedule: Phone: Fax: Wire Walker/Screw Machine Tender signature: ICIAN SECTION Name: Apoorva Navarro Rajinder Prognosis: good Condition at Discharge: stable Rehab Potential (if transferring to Rehab): good Recommended Labs or Other Treatments After Discharge: cbc bmp in 3 days The individual is being admitted to a nursing facility directly from an [facility] or a unit of a [place] [facility] that is not operated by or licensed by [facility] under section 5119.14 or 5160-3-15.1 5 The individual requires the level of services provided by a nursing facility for the condition for which he or she was treated in the hospital and, Physician Certification: I certify the above information and transfer of Apoorva Gonzalez is necessary for the continuing treatment of the diagnosis listed and that she requires snf facility for less than 30 days. Update Admission H&P: No change in H&P PHYSICIAN SIGNATURE: documented in this encounter [facility] 12-16-2024 Consult note Associated Order (s): IP [...] Narrative: [facility] Name[facility] 1950 [id number] Exam Date/Time: 12/16/2024 13:50 Procedure: CT ABDOMEN [...] 12/08/2024 Patient Name: [facility] 1950 [id number] Exam Date/Time: 12/08/2024 21:25 Procedure: CT CERVICAL [...] This note may have been dictated using Hachiko Practice Edition 2.6 and/or GordianTec Voice Recognition Feature. The document was proofread; however, unrecognized voice recognition surg physician asst errors may be present. [1] Past Medical History: Diagnosis Date Chronic kidney disease (CKD) Hemodialysis patient (CMS/HCC) (HCC) Wednesday, , Wednesday History of blood transfusion 02/27/2022 Hypertension Seizure (HCC) Developed seizure-like activity on 02/24 during hospital admission [2] Past Surgical History: Procedure Laterality Date AV FISTULA PLACEMENT Left 08/07/2022 COLONOSCOPY N/A 01/25/2024 Performed by Chrissy Gilman MD at [facility] ENDOSCOPY IR CVC TUNNELED DIALYSIS CATHETER PLACEMENT 02/27/2022 IR CVC TUNNELED CATHETER PLACEMENT 02/27/2022 Candis Andrade MD [facility] SPECIAL PROCEDURES IR EMBOLIZATION 01/24/2024 IR EMBOLIZATION 01/24/2024 Jovan Glynn MD [facility] SPECIAL PROCEDURES VASCULAR SURGERY Left [...] mg 650 mg Rectal q4h PRN Radha Paredesmin, DO acetaminophen (Tylenol) tablet 1,000 mg 1,000 mg Oral q8h Radha Kufranklinmin, DO 1,000 mg at 12/14/24 0540 alteplase (Cathflo Activase) 2 mg in sterile water 2 mL injection 2 mg IntraCATHeter PRN Sean Castaneda MD 2 mg at 12/13/24 2148 alteplase (Cathflo Activase) 2 mg in sterile water 2 mL injection 2 mg IntraCATHeter PRN Sean Castaneda MD 2 mg at 12/13/24 214 amLODIPine (Norvasc) tablet 10 mg 10 mg Oral Daily Radha Kevin, DO 10 mg at 12/16/24 09 atorvastatin (Lipitor) tablet 40 mg 40 mg Oral Nightly John Shepherd DO 40 mg at 12/15/242055 B complex-vitamin C-folic acid (Nephrocaps) capsule 1 capsule 1 capsule Oral Daily John Shepherd DO 1 capsule at 12/16/24 0902 cholecalciferol (Vitamin D-3) tablet 5,000 Units 5,000 Units Oral Daily John Shepherd DO 5,000 Units at 12/16/24 0902 dextrose 5 % infusion 100 mL/hr IntraVENous [...] Units SubCUTAneous 3 times per day Leticia Estevezntire, DO 5,000 Units at 12/16/24 1302 HYDROmorphone (Dilaudid) injection 0.25 mg 0.25 mg IntraVENous q4h PRN Chris Verdugo MD Or HYDROmorphone (Dilaudid) injection 0.5 mg 0.5 mg IntraVENous q4h PRN Chris Verdugo MD 0.5 mg at 12/16/24 1444 labetalol (Normodyne,Trandate) injection 10 mg 10 mg IntraVENous q6h PRN Radha Kevin, DO 10 mg at 12/15/242055 levETIRAcetam (Keppra) tablet 500 mg 500 mg Oral Daily John Shepherd, DO 500 mg at 12/16/24 09 Lidocaine 4 % patch 1 patch 1 patch TransDERmal Daily Radha Kevin, DO melatonin tablet 5 mg 5 mg Oral Nightly PRN Eileen Duncan, SECURITY FLEX OFFICER - FREIGHT ROUTER 5 mg at 12/15/242055 meropenem (Merrem) 1,000 mg in sodium chloride 0.9 % 100 mL IVPB 1,000 mg IntraVENous q12h Shamar Bearden MD Stopped at 12/16/24 1637 naloxone (Narcan) injection 0.4 mg 0.4 mg IntraVENous q5 min PRN Radha Kevin, DO ondansetron ODT (Zofran-ODT) disintegrating tablet 4 mg 4 mg Oral q8h PRN John Shepherd, Or ondansetron (Zofran) injection 4 mg 4 mg IntraVENous q6h PRN John Shepherd, DO oxyCODONE (Roxicodone) immediate release tablet 2.5 mg 2.5 mg Oral q4h PRN Radha Kevin, DO oxyCODONE (Roxicodone) immediate release tablet 5 mg 5 mg Oral q4h PRN Radha Kevin, DO 5 mg at 12/11/24 2250 polyethylene glycol (PEG) 3350 (Miralax) packet 17 g 17 g Oral Daily PRN John Shepherd, DO 17 g at 12/10/24 1204 pregabalin (Lyrica) capsule 25 mg 25 mg Oral BID PRN Radha Kevin DO 25 mg at 12/11/24 1052 QUEtiapine (SEROquel) tablet 12.5 mg 12.5 mg Oral BID PRN Eileen Duncan, PARK - [employer]REIGHT [employer]OUTER sodium chloride 0.9 % infusion 250 mL/hr IntraVENous PRN John Benitez Pentz, DO sodium chloride 0.9 % infusion 5-250 mL/hr IntraVENous PRN John Benitez Pentz, DO sodium chloride 0.9 % infusion 250 mL/hr IntraVENous PRN Ramonita Garnett, BRAYDEN sodium chloride 0.9% (NS) flush 5-40 mL 5-40 mL IntraVENous q12h John Shepherd, DO 10 mL at 12/16/24 0512 sodium chloride 0.9% (NS) flush 5-40 mL 5-40 mL IntraVENous PRN John Shepherd, DO stomahesive in petrolatum (ET Mix) Topical 3 times per day Rosanna Perez APRN - TAMIR Given at 12/16/24 1303 stomahesive in petrolatum (ET Mix) Topical PRN Rosanna Perez APRN - TAMIR Given at 12/13/24 1748 thiamine (Vitamin B1) [...] 10 min Stress: Stress Concern Present (12/09/2024) [place] [place] [facility] - Occupational Stress Questionnaire Feeling of Stress : Very much Social Connections: Moderately Integrated (12/09/2024) Social Connection and Isolation Panel [NHANES] Frequency of Communication with Friends and Family: More than three times a week Frequency of Social Gatherings with Friends and Family: Three times a week Attends Congregation Services: 1 to 4 times per year [...] unable to provide any history given encephalopathy. Fieverardo bedside explained that her mental status has [...] (MOD) Personally Reviewed/Independently interpreted patient's: [x]Epic notes: []Compound Specialist notes, []Nursing notes, []Case management/SW [x]Radiology studies: [...] This note may have been dictated using NetSanity Medical Practice Edition 2.6 and/or GordianTec Voice Recognition Feature. The document was proofread; however, unrecognized voice recognition surg physician asst errors may be present. [1] Patient Active Problem List Diagnosis Hypertensive emergency Gastrointestinal hemorrhage, unspecified gastrointestinal hemorrhage type Anemia Pulmonary edema, acute ([facility]) Shortness of breath COVID-19 Edema of left lower extremity Sepsis, due to unspecified organism, unspecified whether acute organ dysfunction present (HCC) Seizures (HCC) ESRD (end stage renal disease) ([facility]) Dialysis patient ([facility]) Wound dehiscence End stage congestive heart failure ([facility]) Fall, initial encounter Fall (on)(from) sidewalk curb, initial encounter Moderate malnutrition ([facility]) ([facility]) [2] Past Medical History: Diagnosis Date Chronic kidney disease (CKD) Hemodialysis patient ([facility]) ([facility]) Wednesday, , Wednesday History of blood transfusion 02/27/2022 Hypertension Seizure ([facility]) Developed seizure-like activity on 02/24 during [...] & deltoids) Fluid Accumulation: Mild Extremities, Generalized Automotive Specialty Technician Strength: Not Performed Nutrition Assessment: Pt with [...] that within the past year between 105-112#.) [place] Body Weight (lbs) (Calculated): 123 lbs [place] Body Weight (Kg) (Calculated): 56 kg % [place] Body Weight (Calculated): 94.6 % BMI (kg/m2) [...] Alexus Denney RD Contact: Secure chat or *[phone] Associated Order(s): IP CONSULT TO PALLIATIVE CARE Images from the original note were not included. Palliative Care Initial Consult Chief Complaint: Apoorva Goznalez is a 74 y.o. female with chief complaint of fall. Palliative Care is actively following. Assessment/Plan Goals of care - Apoorva Gonzalez lacks capacity for medical decision-making due to encephalopathy. - legal surrogate decision maker is SHADY, Brother Deshawn Crystal ( ) Alternate is s/o Edward Ruggiero [phone]) -goals of care include: 1) discussed with [...] History of seizures - remains on home [facility] Palliative Care Encounter -Code Status: DNR-CCA - will continue to follow for ongoing monitoring of progression of encephalopathy as well as for appropriateness for hospice care due to ESRD, sepsis, encephalopathy - was residing at [facility] Time Stamp: Total of 90 minutes [...] Management Advanced Directives: Health Care Power of Segmental Paving Supervisor, DNR Functional Assessment: PPS 40% mainly in bed; can't do any work/extensive disease; mainly assistance; normal or reduced intake; full or drowsy or confusion Prognosis: uncertain at this time Spiritual Assessment: No spiritual distress identified Bereavement and Grief: To Be Determined PDMP/OARRS Reviewed: Yes-reviewed Social history: Marital status: Children: unknown Living status: [facility] Work history: unknown status: No Yarsani: None ROS: See palliative care ROS/ESAS below; Detail ROS unable to be obtained due to patient's mental status Avon Symptom Assessment Score Avon Score Pain Score (if non-verbal, add .FLACC [...] comfort Total Score: 6 Family Meeting: Participants: GENET Family meeting was [...] hospice appropriate? Eligible, but not consistent with [facility] at this time Transition Note Initiated: yes [...] 01/25/2024 Performed by Chrissy Gilman MD at [facility] ENDOSCOPY IR CVC TUNNELED DIALYSIS CATHETER PLACEMENT 02/27/2022 IR CVC TUNNELED CATHETER PLACEMENT 02/27/2022 Candis Andrade MD [facility] SPECIAL PROCEDURES IR EMBOLIZATION 01/24/2024 IR EMBOLIZATION 01/24/2024 Jovan Glynn MD [facility] SPECIAL PROCEDURES VASCULAR SURGERY Left [...] from the original note were not included. [facility] - Infectious Diseases Attending Consult Note Reason [...] 10 min Stress: Stress Concern Present (12/09/2024) [place] [facility] - Occupational Stress Questionnaire Feeling of Stress : Very much Social Connections: Moderately Integrated (12/09/2024) Social Connection and Isolation Panel [NHANES] Frequency of Communication with Friends and Family: More than three times a week Frequency of Social Gatherings with Friends and Family: Three times a week Attends Congregation Services: 1 to 4 times per year [...] Comments: Unable to assess Labs: Recent Labs 12/11/24 0225 12/12/24 0103 12/13/24 0045 NA 138 137 134* K 3.7 4.1 4.2 CL 100 100 100 CO2 27 26 25 BUN 32* 38* 22 CREATININE 4.96* 5.60* 3.82* GLUCOSE 74* 77* 47* CALCIUM 8.0* 7.8* 7.8* PROT 6.5 6.1* -- BILITOT 0.4 0.4 -- ALKPHOS 149 131 -- AST 41* 36* -- ALT 13 10 -- Recent Labs 12/11/24 0225 12/11/24202912/12/24 0103 12/13/24 [...] 01/25/2024 Performed by Chrissy Gilman MD at [facility] ENDOSCOPY IR CVC TUNNELED DIALYSIS CATHETER PLACEMENT 02/27/2022 IR CVC TUNNELED CATHETER PLACEMENT 02/27/2022 Candis Andrade MD [facility] SPECIAL PROCEDURES IR EMBOLIZATION 01/24/2024 IR EMBOLIZATION 01/24/2024 Jovan Glynn MD [facility] SPECIAL PROCEDURES VASCULAR SURGERY Left [...] 1,000 mg 1,000 mg Oral q8h Radha Paredesmin, DO 1,000 mg at 12/13/24 0537 amLODIPine (Norvasc) tablet 10 mg 10 mg Oral Daily Radha Paredesmin, DO 10 mg at 12/12/24 0857 atorvastatin (Lipitor) tablet 40 mg 40 mg Oral Nightly John Shepherd, DO 40 mg at 12/12/24 2116 B complex-vitamin C-folic acid (Nephrocaps) capsule 1 capsule 1 capsule Oral Daily John Shepherd, DO 1 capsule at 12/11/24 0813 cefepime (Maxipime) 1,000 mg in sodium chloride 0.9 % 50 mL IVPB 1,000 mg IntraVENous q12h Jacob Laguna DO Stopped at 12/12/24 2203 cholecalciferol (Vitamin D-3) tablet 5,000 Units 5,000 Units Oral Daily John Shepherd, DO 5,000 Units at 12/11/24 0813 dextrose [...] Nightly John Shepherd, DO 5 mg at 12/12/24 2116 naloxone [...] Paredesmin, DO 25 mg at 12/11/24 1052 sertraline (Zoloft) tablet 25 mg 25 mg Oral Daily Radha Kuzmin, DO 25 mg at 12/12/24 0856 sevelamer carbonate (Renvela) tablet 800 mg 800 mg Oral TID WC John Shepherd, DO 800 mg at 12/11/24 1805 sodium chloride 0.9 % infusion 250 mL/hr IntraVENous PRN John Stuartz, DO sodium chloride 0.9 % infusion 5-250 mL/hr IntraVENous PRN John Stuartz, DO sodium chloride 0.9% (NS) flush 5-40 mL 5-40 mL IntraVENous q12h John Shepherd, DO 10 mL at 12/12/24 0443 sodium chloride 0.9% (NS) flush 5-40 mL 5-40 mL IntraVENous PRN John Shepherd DO thiamine (Vitamin B1) tablet 250 mg 250 mg Oral Daily John Shepherd DO 250 mg at 12/11/24 0813 vancomycin (Vancocin) 750 mg in sodium chloride 0.9 % 250 mL IVPB 750 mg IntraVENous Once Radha Kevin DO vancomycin (Vancocin) intermittent dosing (placeholder) Other RX Placeholder Radha Kevin DO [4] No Known Allergies [5] Family History Problem Relation Name Age of Onset Dementia Mother Stroke Father Prostate cancer Brother 69 Breast cancer Cousin 32 Stomach cancer Mother's Sister 70 Cosigned by Shamar Bearden MD at 12/13/2024 6:51 PM EDT Associated attestation - Shamar Bearden MD - 12/13/2024 6:51 PM EDT [facility] Infectious Disease Attending Note Patient seen and evaluated with resident/student. I performed/re-performed a history, physical examination, and saavedra elements of management of the patient and discussed his/her management with the resident/student. I reviewed the resident/student note and agree with the documented findings and plan of care with changes as noted with italics. Patient well known to me from previous [facility] admissions in the past few [...] from the original note were not included. [facility] Wound Care CONSULT Note Apoorva Gonzalez [...] to follow Recommend to follow up at [facility] Outpatient wound care center after hospital [...] 01/25/2024 Performed by Chrissy Gilman MD at [facility] ENDOSCOPY IR CVC TUNNELED DIALYSIS CATHETER PLACEMENT 02/27/2022 IR CVC TUNNELED CATHETER PLACEMENT 02/27/2022 Candis Andrade MD [facility] SPECIAL PROCEDURES IR EMBOLIZATION 01/24/2024 IR EMBOLIZATION 01/24/2024 Jovan Glynn MD [facility] SPECIAL PROCEDURES VASCULAR SURGERY Left [...] Apoorva Gonzalez Date of : 1950 Acct: [id number] PCP: Roxie Spain Date of Admission: 12/08/2024 [...] September 2024. She was initially treated at [facility] but was transferred to [facility] for ICU treatment of septic shock, hypoxic respiratory failure, and encephalopathy. She had an infected right thigh hematoma that was irrigated and debrided at [facility] at that time with recurrence [...] Somers III, MD Left Posted 01/25/2024 COLONOSCOPY Sayed Isael Gilman MD N/A Posted <div class="[id number]"></ div> Home Medications: Prior to Admission medications [...] 10 min Stress: Stress Concern Present (12/09/2024) [place] [facility] [employer] - Occupational Stress Questionnaire Feeling of Stress : Very much Social Connections: Moderately Integrated (12/09/2024) Social Connection and Isolation Panel [NHANES] Frequency of Communication with Friends and Family: More than three times a week Frequency of Social Gatherings with Friends and Family: Three times a week Attends Congregation Services: 1 to 4 times per year [...] update plan of care accordingly. Please page director community organization orthopaedic resident for questions or concerns. Balta Chacon M.D. PGY-2 Orthopaedic Surgery Francisco Javier Morales MD Orthopaedic Surgery, PGY-4 [1] Past Medical History: Diagnosis Date Chronic kidney disease (CKD) Hemodialysis patient (CMS/HCC) ([facility]) Wednesday, , Wednesday History of blood transfusion 02/27/2022 Hypertension Seizure ([facility]) Developed seizure-like activity on 02/24 during [...] Victor Manuel Pentz, DO, 40 mg at 12/10/24 2124 B complex-vitamin C-folic acid (Nephrocaps) capsule 1 capsule, 1 capsule, Oral, Daily, John Stuartz, DO, 1 capsule at 12/11/24 0813 cefepime (Maxipime) 1,000 mg in sodium chloride 0.9 % 50 mL IVPB, 1,000 mg, IntraVENous, q12h, Jacob Laguna DO, Stopped at 12/12/24 1406 cholecalciferol (Vitamin D-3) tablet 5,000 Units, 5,000 Units, Oral, Daily, John Shepherd, DO, 5,000 Units at 12/11/24 0813 gadopiclenol (Vueway) injection 5 mL, 5 mL, IntraVENous, Once PRN, Radha Kevin, heparin injection 1,200-2,000 Units, 1,200-2,000 Units, IntraCATHeter, [...] 5 mg, 5 mg, Oral, Nightly, John Shepherd, DO, 5 mg at 12/10/24 2124 naloxone (Narcan) injection 0.4 mg, 0.4 mg, IntraVENous, q5 min PRN, Radha Kevin DO ondansetron ODT (Zofran-ODT) disintegrating tablet 4 mg, 4 mg, Oral, q8h PRN OR ondansetron (Zofran) injection 4 mg, 4 mg, IntraVENous, q6h PRN, John Victor Manuel Pentz, DO oxyCODONE (Roxicodone) immediate release tablet [...] Daily, Radha Kuzmin, DO, 25 mg at 12/12/24 0856 sevelamer [...] John Reynagaew Pentz, DO, 10 mL at 12/12/24 0443 [...] [] CrCl ml/min (Cockcroft-Gault, if ROLANDO, no PREHEMMER) Consulted By: Dr. Radha Kevin Vancomycin Level: [...] Chat Associated Order(s): IP CONSULT TO GERIATRICS [facility] Geriatric Medicine Inpatient Consult Service Admission Date: [...] patient's brother/POA for my call went to [employer]. Will attempt to reach out at another time. Advance Care Planning Healthcare Power ofAttorney: yes Financial Power of Segmental Paving Supervisor: yes Living Will:yes Code Status: DNR CCA [...] mg, 650 mg, Rectal, q6h PRN, John Shepherd, DO amLODIPine (Norvasc) tablet 5 mg, 5 mg, Oral, Daily, John Stuartz, DO, 5 mg at 12/10/24 08 atorvastatin (Lipitor) tablet 40 mg, 40 mg, Oral, Nightly, John Shepherd, DO, 40 mg at 12/09/24 2157 B complex-vitamin C-folic acid (Nephrocaps) capsule 1 capsule, 1 capsule, Oral, Daily, John Shepherd, DO, 1 capsule at 12/10/24 0807 cefepime (Maxipime) 1,000 mg in sodium chloride 0.9 % 50 mL IVPB, 1,000 mg, IntraVENous, q12h, Jacob Laguna DO, Stopped at 12/09/24 2228 cholecalciferol (Vitamin D-3) tablet 5,000 Units, 5,000 Units, Oral, Daily, John Shepherd, DO, 5,000 Units at 12/10/24 0807 hydrALAZINE (Apresoline) injection 10 mg, 10 mg, IntraVENous, q4h PRN, Radhajacquelyn Paredesmin, DO, 10 mg at 12/09/24 1521 labetalol (Normodyne,Trandate) injection 10 mg, 10 mg, IntraVENous, q6h PRN, Radhajacquelyn Paredesmin, DO, 10 mg at 12/10/24 0807 levETIRAcetam (Keppra) tablet 500 mg, 500 mg, Oral, Daily, John Shepherd, DO, 500 mg at 12/10/24 0806 Lidocaine 4 % patch 1 patch, 1 patch, TransDERmal, Daily, Radha Paredesmin, DO melatonin tablet 5 mg, 5 mg, Oral, Nightly, John Shepherd, DO, 5 mg at 12/09/24 215 ondansetron ODT (Zofran-ODT) disintegrating tablet 4 mg, 4 mg, Oral, q8h PRN OR ondansetron (Zofran) injection 4 mg, 4 mg, IntraVENous, q6h PRN, John Stuartz, DO polyethylene glycol (PEG) 3350 (Miralax) packet 17 g, 17 g, Oral, Daily PRN, John Benitez Pentz, DO sevelamer carbonate (Renvela) tablet 800 mg, 800 mg, Oral, TID WC, John Benitez Pentz, DO, 800 mg at 12/10/24 0806 sodium chloride 0.9 % infusion, 250 mL/hr, IntraVENous, PRN, John Benitez Pentz, DO sodium chloride 0.9 % infusion, 5-250 mL/hr, IntraVENous, PRN, John Benitez Pentz, DO sodium chloride 0.9% (NS) flush 5-40 mL, 5-40 mL, IntraVENous, q12h, John Benitez Pentz, DO, 10 mL at 12/10/24 0816 sodium chloride 0.9% (NS) flush 5-40 mL, 5-40 mL, IntraVENous, PRN, John Benitez Pentz, DO thiamine (Vitamin B1) tablet 250 mg, 250 mg, Oral, Daily, John Benitez Pentz, DO, 250 mg at 12/10/24 0806 [...] 01/25/2024 Performed by Chrissy Gilman MD at [facility] ENDOSCOPY IR CVC TUNNELED DIALYSIS CATHETER PLACEMENT 02/27/2022 IR CVC TUNNELED CATHETER PLACEMENT 02/27/2022 Candis Andrade MD [facility] SPECIAL PROCEDURES IR EMBOLIZATION 01/24/2024 [...] Cousin 32 Stomach cancer Mother's Sister 70 [facility] [place] [facility] Consult Note Consults HPI The patient [...] 10 min Stress: Stress Concern Present (12/09/2024) [place] [employer] - Occupational Stress Questionnaire Feeling of Stress : Very much Social Connections: Moderately Integrated (12/09/2024) Social Connection and Isolation Panel [NHANES] Frequency of Communication with Friends and Family: More than three times a week Frequency of Social Gatherings with Friends and Family: Three times a week Attends Congregation Services: 1 to 4 times per year [...] continue exam. resume next session on Wednesday (MW schedule). Continue to monitor BMP and electrolytes daily; replace K, Ca, Mg as needed. Transfuse PRBCs for Hgb < 7.0 g/dL; monitor for ongoing anemia. Continue renal diet and fluid restriction. Monitor AV access site for bleeding, hematoma, or infection. Nephrology to follow for dialysis planning and medication adjustments. Please message me through [employer] chat with any questions or concerns. Sean Castaneda MD 12/09/2024 4:23 PM [facility] [place] [address] [place] [address], [address] [place] [id number] Office: [phone] [1] Past Medical History: Diagnosis Date Chronic kidney disease (CKD) Hemodialysis patient (CMS/HCC) (HCC) Wednesday, , Wednesday History of blood transfusion 02/27/2022 Hypertension Seizure ([facility]) Developed seizure-like activity on 02/24 during hospital admission [2] Family History Problem Relation Name Age of Onset Dementia Mother Stroke Father Prostate cancer Brother 69 Breast cancer Cousin 32 Stomach cancer Mother's Sister 70 [3] Current Facility-Administered Medications: acetaminophen (Tylenol) tablet 650 mg, 650 mg, Oral, q6h PRN OR acetaminophen (Tylenol) suppository 650 mg, 650 mg, Rectal, q6h PRN, John Shepherd, DO amLODIPine (Norvasc) tablet 5 mg, 5 mg, Oral, Daily, John Shepherd, DO, 5 mg at 12/09/24 0841 atorvastatin (Lipitor) tablet 40 mg, 40 mg, Oral, Nightly, John Shepherd, DO B complex-vitamin C-folic acid (Nephrocaps) capsule 1 capsule, 1 capsule, Oral, Daily, John Shepherd DO, 1 capsule at 12/09/24 0842 cefepime (Maxipime) 1,000 mg in sodium chloride 0.9 % 50 mL IVPB, 1,000 mg, IntraVENous, q12h, Jacob Laguna DO, Stopped at 12/09/24 1140 cholecalciferol (Vitamin D-3) tablet 5,000 Units, 5,000 Units, Oral, Daily, John Shepherd, DO, 5,000 Units at 12/09/24 0841 hydrALAZINE [...] 5 mg, 5 mg, Oral, Nightly, John Shepherd, ondansetron ODT (Zofran-ODT) disintegrating tablet 4 mg, 4 mg, Oral, q8h PRN OR ondansetron (Zofran) injection 4 mg, 4 mg, IntraVENous, q6h PRN, John Shepherd, polyethylene glycol (PEG) 3350 (Miralax) packet 17 g, 17 g, Oral, Daily PRN, John Shepherd, sevelamer carbonate (Renvela) tablet 800 mg, 800 mg, Oral, TID WC, John Shepherd, DO, 800 mg at 12/09/24 1147 sodium chloride 0.9 % infusion, 250 mL/hr, IntraVENous, PRN, John Victor Manuel Pentz, DO sodium chloride 0.9 % infusion, 5-250 mL/hr, IntraVENous, PRN, John Victor Manuel Pentz, DO sodium chloride 0.9% (NS) flush 5-40 mL, 5-40 mL, IntraVENous, q12h, John Victor Manuel Pentz, DO sodium chloride 0.9% (NS) flush 5-40 mL, 5-40 mL, IntraVENous, PRN, John Reynagaew Pentz, DO thiamine (Vitamin B1) tablet 250 mg, 250 mg, Oral, Daily, John Victor Manuel Pentz, DO, 250 mg at 12/09/24 0841 vancomycin (Vancocin) 1,000 mg in sodium chloride 0.9 % 250 mL IVPB (Vial Mate), 20 mg/kg, IntraVENous, Once, John Benitez Pentz, DO [4] amLODIPine, 5 mg, Oral, Daily [...] sodium chloride 0.9% documented in this encounter [facility] 12-12-2024 Note Return Referral plac ed to [facility] via [facility] per [facility] request. Await review and response regarding ability to accept. TCC notified. [facility] 12-09-2024 Emergency department Note IV re established [...] dictating provider for clarification.) Mason Munson MD [facility] Mason Munson MD 12/08/24 2239 EMERGENCY DEPARTMENT ENCOUNTER Pt Name: Apoorva Gonzalez [...] DEPARTMENT COURSE and DIFFERENTIAL DIAGNOSIS/MDM: Vitals: Vitals: 12/08/24200012/08/24 2335 BP: (!) 174/93 (!) 172/90 Pulse: [...] pain. ED Course as of 12/08/242346Dec 08, 20248 + fall hit head, CTH fine, possible diskitis on CT? Needs MRI, getting blood for low Hb; [JT] ED Course User Index [JT] Jacob Laguna, DO Diagnoses as of 12/08/242346 Fall, initial [...] 40 mEq (40 mEq Oral Given 12/08/24 7479) Prescription drugs considered: Blood transfusion PROCEDURES: Unless [...] History of blood transfusion 02/27/2022 Hypertension Seizure ([facility]) Developed seizure-like activity on 02/24 during hospital admission [2] Past Surgical History: Procedure Laterality Date AV FISTULA PLACEMENT Left 08/07/2022 COLONOSCOPY N/A 01/25/2024 Performed by Chrissy Gilman MD at [facility] ENDOSCOPY IR CVC TUNNELED DIALYSIS CATHETER PLACEMENT 02/27/2022 IR CVC TUNNELED CATHETER PLACEMENT 02/27/2022 Candis Andrade MD [facility] SPECIAL PROCEDURES IR EMBOLIZATION 01/24/2024 IR EMBOLIZATION 01/24/2024 Jovan Glynn MD [facility] SPECIAL PROCEDURES VASCULAR SURGERY Left [...] Year: No Angelica Hines DO Resident 12/08/24 2347 Cosigned by Mason Munson MD at 12/09/2024 9:45 PM EDT Emergency Department Encounter Location: [facility] [...] AM Result Value Ref Range PRODUCT CODE [id number] Unit Number [id number] Unit ABO O Unit RH POS Crossmatch interpretation COMP Dispense Status Transfused Blood Expiration Date [id number] Product Blood Type 5100 Unit Volume 300 mL XR hip left 2 or 3 views Final Result Arthroplasties in adequate alignment. No acute abnormality. Report Dictated on Electronically Signed By: Honroio Grande MD Electronically Signed Date/Time: 12/09/2024 5:53 [...] 40 mEq (40 mEq Oral Given 12/08/24 3604) oxyCODONE (Roxicodone) immediate release tablet 5 mg (5 mg Oral Given 12/09/24 0760) Final Impression 1. Fall, initial encounter 2. [...] 9:45 PM EDT documented in this encounter [facility] 12-09-2024 Note [facility] 12-09-2024 History and physical note Attending History [...] has had a complicated year. From august 14 to August 24 she had an infected [...] Plan was for discharge back to [facility] on 11/13/24 however pt required new authorization from [facility] to return to the facility. Auth obtained [...] Emergency Contact: Deshawn Crystal Mobile Relation: Brother Law Librarian needed? No Secondary Emergency Contact: Edward Ruggiero Mobile Relation: Significant Other Preferred language: Polish Law Librarian needed? No [employer] Apoorva Gonzalez : 1950 Primary Care Physician: Roxie Spain The patient and/or family/surrogate voluntarily agreed to participate in ACP services. Patient s cognitive capacity: Alert and oriented Code Status: [_] [FULL CODE - Continue all advanced life support: CPR,intubation,invasive procedures] [X] [DNR-CCA - DO NOT do CPR, intubation] [_] [DNR-SIDE STITCHER - Comfort care only] [_] DNR form [...] Shepherd DO Division of Hospitalist Medicine [facility] [1] Past Medical History: Diagnosis Date Chronic kidney disease (CKD) Hemodialysis patient (CMS/HCC) ([facility]) Wednesday, , Wednesday History of blood transfusion 02/27/2022 Hypertension Seizure (HCC) Developed seizure-like activity on 02/24 during hospital admission [2] Past Surgical History: Procedure Laterality Date AV FISTULA PLACEMENT Left 08/07/2022 COLONOSCOPY N/A 01/25/2024 Performed by Chrissy Gilman MD at [facility] ENDOSCOPY IR CVC TUNNELED DIALYSIS CATHETER PLACEMENT 02/27/2022 IR CVC TUNNELED CATHETER PLACEMENT 02/27/2022 Candis Andrade MD [facility] SPECIAL PROCEDURES IR EMBOLIZATION 01/24/2024 IR EMBOLIZATION 01/24/2024 Jovan Glynn MD [facility] SPECIAL PROCEDURES VASCULAR SURGERY Left [...] (Vial Mate), 20 mg/kg, IntraVENous, Once, Jacob Laguna, DO Current Outpatient Medications: acetaminophen (Tylenol) 325 [...] No Known Allergies documented in this encounter [facility] 12-06-2024 History of Present illness Narrative 12/06/2024 [...] 01/25/2024 Performed by Chrissy Gilman MD at [facility] ENDOSCOPY IR CVC TUNNELED DIALYSIS CATHETER PLACEMENT 02/27/2022 IR CVC TUNNELED CATHETER PLACEMENT 02/27/2022 Candis Andrade MD [facility] SPECIAL PROCEDURES IR EMBOLIZATION 01/24/2024 IR EMBOLIZATION 01/24/2024 Jovan Glynn MD [facility] SPECIAL PROCEDURES VASCULAR SURGERY Left 11/02/2024 EXCISION OF LEFT UPPER EXTREMITY INFECTED GRAFT (JIM) VASCULAR SURGERY Left 11/05/2024 REVISION OR REPAIR, AV FISTULA (JIM) documented in this encounter [facility] 11-27-2024 History of Present illness Narrative 11/27/2024 [...] 01/25/2024 Performed by Chrissy Gilman MD at [facility] ENDOSCOPY IR CVC TUNNELED DIALYSIS CATHETER PLACEMENT 02/27/2022 IR CVC TUNNELED CATHETER PLACEMENT 02/27/2022 Candis Andrade MD [facility] SPECIAL PROCEDURES IR EMBOLIZATION 01/24/2024 IR EMBOLIZATION 01/24/2024 Jovan Glynn MD [facility] SPECIAL PROCEDURES VASCULAR SURGERY Left 11/02/2024 EXCISION OF LEFT UPPER EXTREMITY INFECTED GRAFT (JIM) VASCULAR SURGERY Left 11/05/2024 REVISION OR REPAIR, AV FISTULA (JIM) documented in this encounter [facility] 11-22-2024 Emergency department Note Called [facility] [phone]. Spoke with CYNTHIA Perry. Advised pt sent in from dialysis for low hgb of 6.5, [facility] ED hgb 7.8. pt stable and will be sent back. [facility] 11-22-2024 Emergency department Note Called [facility] [place] [phone]. Spoke with CYNTHIA Perry. Advised pt sent in from dialysis for low hgb of 6.5, [facility] ED hgb 7.8. pt stable and will [...] Response: Confused Best Motor Response: Follows commands [place] Coma Scale Score: 14 PHYSICAL EXAM ED [...] and outpatient follow-up. Diagnoses as of 11/22/24 171 Anemia of chronic disease Medications - No [...] Date Chronic kidney disease (CKD) Hemodialysis patient ([facility]/HCC) (HCC) Wednesday, , Wednesday History of blood transfusion 02/27/2022 Hypertension Seizure (HCC) Developed seizure-like activity on 02/24 during hospital admission [2] Past Surgical History: Procedure Laterality Date AV FISTULA PLACEMENT Left 08/07/2022 COLONOSCOPY N/A 01/25/2024 Performed by Chrissy Gilman MD at [facility] ENDOSCOPY IR CVC TUNNELED DIALYSIS CATHETER PLACEMENT 02/27/2022 IR CVC TUNNELED CATHETER PLACEMENT 02/27/2022 Candis Andrade MD [facility] SPECIAL PROCEDURES IR EMBOLIZATION 01/24/2024 IR EMBOLIZATION 01/24/2024 Jovan Glynn MD [facility] SPECIAL PROCEDURES VASCULAR SURGERY Left [...] Last Year: No Kev Warner MD 11/22/24 5961 documented in this encounter [facility] 11-22-2024 Physician Emergency department Note EMERGENCY DEPARTMENT [...] Response: Confused Best Motor Response: Follows commands [place] Coma Scale Score: 14 PHYSICAL EXAM ED [...] discharge and outpatient follow-up. Diagnoses as of 11/22/241711 Anemia of chronic disease Medications - No [...] Date Chronic kidney disease (CKD) Hemodialysis patient ([facility]) (HCC) Wednesday, , Wednesday History of blood transfusion 02/27/2022 Hypertension Seizure (HCC) Developed seizure-like activity on 02/24 during hospital admission [2] Past Surgical History: Procedure Laterality Date AV FISTULA PLACEMENT Left 08/07/2022 COLONOSCOPY N/A 01/25/2024 Performed by Chrissy Gilman MD at [facility] ENDOSCOPY IR CVC TUNNELED DIALYSIS CATHETER PLACEMENT 02/27/2022 IR CVC TUNNELED CATHETER PLACEMENT 02/27/2022 Candis Andrade MD [facility] SPECIAL PROCEDURES IR EMBOLIZATION 01/24/2024 IR EMBOLIZATION 01/24/2024 Jovan Glynn MD [facility] SPECIAL PROCEDURES VASCULAR SURGERY Left 11/02/2024 EXCISION OF LEFT UPPER EXTREMITY INFECTED GRAFT (JIM) VASCULAR SURGERY Left 11/05/2024 REVISION OR REPAIR, AV FISTULA (JMI) [3] Family History Problem Relation Name Age [...] Last Year: No Kev Warner MD 11/22/24 1445 [facility] 11-16-2024 History of Present illness Narrative Pt was followed by the Palliative Care Team during hospitalization at [facility]. Provider is recommending continued Palliative follow up in the community. Referral made too [facility]. Info faxed to [phone] documented in this encounter [facility] 11-15-2024 Note [facility] 11-15-2024 Hospital course Narrative Hospitalist Discharge Summary Apoorva Gonzalez : 1950 Admit date: 11/12/2024 Discharge date: 11/15/2024 Admitting Physician: Edson Graham MD Primary Care Physician: Roxie Spain Visit Status: Observation Code Status: DNR-CCA BRIEF HOSPITAL COURSE: Apoorva is a 74 y.o. female with past medical history of CKD, hemodialysis (), history of blood transfusion, Hypertension, and seizure disorder who presents from [facility] with chief complaint of left upper extremity graft site complication with bloody drainage. She presents as a direct transfer from [facility] due to complications of left upper extremity [...] on November 05, 2024. On evaluation at [facility] ER she was noted to have a white count of 10.9 (down trended from 12.6 the day prior. Hemoglobin 9.3 (increased from 7.0 the day prior). BMP grossly unremarkable for ESRD patient. ED physician at [facility] discussed with vascular surgery and plan for admit with vascular surgery consult. Case was discussed with [facility] emergency room physician and patient admitted for [...] Plan was for discharge back to [facility] today 11/13/24 however pt requires new authorization from [facility] to return to the facility. Auth obtained [...] this medication? Recommended Follow-up: Roxie Judit [address] [facility] [place] [address] Schedule an appointment as soon as possible for a visit [facility] [address] [place] [phone] Complexity of Follow up: [] Moderate Complexity: follow up within 7-14 calendar days (87046) [x] Severe Complexity: follow up within 7 calendar days (43258) Follow up Testing, Pending results or Referrals [...] Megan Alaniz NP Division of Hospitalist Medicine [facility] 11/15/2024, 11:40 AM [1] Past Medical History: Diagnosis Date Chronic kidney disease (CKD) Hemodialysis patient ([facility]/HCC) (HCC) Wednesday, , Wednesday History of blood transfusion 02/27/2022 Hypertension Seizure (HCC) Developed seizure-like activity on 02/24 during hospital admission Cosigned by Kevin Do MD at 11/15/2024 8:56 PM EDT documented in this encounter [facility] 11-15-2024 Nurse Note Report called to nurse at [facility]. All questions answered. 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 [facility] 11-15-2024 Nurse Note Report called to nurse at [facility]. All questions answered. 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 03:50 Pt refusing daily lab work, FREDI Decker notified. NO new orders Patient Name: Apoorva Gonzalez Patient : 1950 Acct: [id number] Date of Admission: 11/12/2024 [facility] A Code Status: DNR-CCA Allergies: [...] PLT 495 (H) 11/13/2024 0001 NA 137 11/13/2024 0001 K 4.0 11/13/20242422 CL 103 11/13/2024 0001 CO2 23 11/13/20242422 BUN 16 11/13/20242422 CREATININE 3.51 (H) 11/13/20242422 CALCIUM 7.6 (L) 11/13/20242422 PHOS 2.7 10/26/2024 0657 IV Drips and Rate/Dose Continuous Meds[3] Safety - Before each treatment: Dialysis Machine No.: [id number] RO Machine Number: [id number] Dialyzer Lot No.: [id number] Tubing Lot Number: [id number] All Connections Secure: Yes Venous Parameters Set: Yes Arterial Parameters Set: Yes NS Bag: Yes Saline Line Double Clamped: Yes Dialyzer: Nipro Prime Volume (mL): 200 mL RO Machine Number: [id number] RO Machine Log Sheet Completed: Yes Machine Alarm Self Test: Completed, Passed (The machine passed all tests at 1208) (11/14/24 1209) Air Foam Detector: Proper Function, Tested Extracorporeal Circuit Tested for Integrity: Yes Machine Conductivity: 13.8 Manual Conductivity: 13.6 Manual Ph: 7.2 Bleach Test (Neg): Yes Bath Temperature: 36 C (96.8 F) Conductivity Meter Serial #: [id number] Machine Functioning Alarm Free? Yes Dialysis Bath: [...] due to increasing venous pressure. UF Removed- 1855 11/14/24 1515 400 mL/min 1160 ml/hr -190 mmHg [...] returned to patient per policy. UF Removed- 3349 Vital Signs Patient Vitals for the past [...] Wound dehiscence End stage congestive heart failure ([facility]) [3] 03:30 Pt refusing blood work. BRAYDEN meadows made aware. documented in this encounter [facility] 11-15-2024 Miscellaneous Notes Patient Choice Patient Name: APOORVA GONZALEZ Date of : 1950 All Providers Sent Referral Name: Homar Good [facility] Phone: [phone] Address: [address] [place] [address] MAR & Discharge med list transmitted to [facility] via Careport per TCC request. Electronically signed by [facility] Cholo Verdin [facility] received discharge order. SHERIE completed and bedside nurse aware. [facility] spoke with the patient to make her aware and she agreed to pay any applicable cost for cot transport after TCC explained she could call her insurance to request cost information. Set up cot transport for 12:30 pm with [employer] ([phone]). The patient asked that [facility] call her brother/GUERDAASTRID Hess to make him aware. [facility] spoke with Stephanie via phone and provided verbal explanation of CUENCA. He denied any need to appeal discharge. [facility] set up transport via cot at 12:30 pm, making the patient, Stephanie, bedside nurse, community aide and SNF aware of transport time. [facility] tasked [facility] to send DC paperwork to SNF. TAX RECORD CLERK spoke with Deshawn- [phone] son regarding [employer] benefits during a skilled stay in a facility. How insurance dictates skilled time in a SNF. Educated on medicaid, rules, and Patient liability in a SNF. TAX RECORD CLERK assisted with medicaid application and faxed to [email or web address] to sign paperwork and send back to TAX RECORD CLERK to file with Gauri Hensley. process worker to follow. Referral placed to [facility] via [facility] per TCC request. Await review and response regarding ability to accept. TCC notified. Care Management Progress Note Short Medical why still here: Awaiting insurance authorization for return to SNF. Planned Discharge Disposition: Residential Facility Barriers/Today we still Wait: Facility pre-cert Length of Stay (Days): 1 GMLOS: No GMLOS Documented - CM referral acknowledged. - TCC received update that discharge order had been written. - TCC spoke with the patient to introduce self/role and the patient stated she did want to return to the facility. - TCC tasked [employer] to initiate referral in [facility]. - TCC spoke with admission staff May at [facility] who verified a new auth will be needed for the patient to return to the facility. - TCC tasked ALUM PL[employer] SUPERVISOR to initiate [employer] authorization and updated attending that authorization will be need to be approved before the patient can be discharge back to her SNF. Attending acknowledged the update. _ TCC will continue to follow. Patient is from a SNF. 30 day readmission is not warranted. documented in this encounter [facility] 11-15-2024 Progress note Formatting of t his note might be different from the original. Patient Choice Patient Name: APOORVA GONZALEZ Date of : 1950 All Providers Sent Referral Name: Homar Good [facility] Phone: [phone] Address: [address] [place] [address] [facility] 11-15-2024 Progress note Formatting of t his note might be different from the original. MAR & Discharge med list transmitted to [facility] via Careport per TCC request. Electronically signed by [facility] Cholo Verdin [facility] 11-15-2024 Progress note Formatting of t his note might be different from the original. [facility] received discharge order. SHERIE completed and bedside nurse aware. [facility] spoke with the patient to make her aware and she agreed to pay any applicable cost for cot transport after TCC explained she could call her insurance to request cost information. Set up cot transport for 12:30 pm with [employer] ([phone]). The patient asked that [facility] call her brother/REJI Hess to make him aware. [facility] spoke with Stephanie via phone and provided verbal explanation of CUENCA. He denied any need to appeal discharge. [facility] set up transport via cot at 12:30 pm, making the patient, Stephanie, bedside nurse, community aide and SNF aware of transport time. [facility] tasked [facility] to send DC paperwork to SNF. [facility] 11-15-2024 History of Present illness Narrative Nephrology [...] any questions or concerns Karis Stone APRN FREIGHT ROUTER A-G CABLE SPLICER HELPER [facility] [place] [phone] I reviewed with Karis Stone APRN-TAMIR the saavedra portions of the medical history and the findings on physical examination. I discussed the patient s saavedra portions of the diagnosis and concur with the treatment plan as documented in her note. Please message me through [employer] with any questions or concerns. Sean Castaneda [...] who presents as a direct transfer from [facility] due to complications of left upper extremity [...] on November 05, 2024. On evaluation at [facility] ER, pt was noted to [...] plan to continue with T-TH-Sat HD treatments. Last HD 11/11 with 1000ml removed. Hgb in ED noted to be 7.1, repeat prior to discharge 7.2. Plan was for discharge back to [facility] 11/13/24 however pt requires new authorization from [facility] to return to the facility. Patient currently [...] On: Kcal/kg Weight Used for Energy Requirements: [place] Weight for Energy Calculation (kg): 55 kg Total Energy Requirements (kcals/day): 6884-1568 kcal/day (30-35) Weight Used for Protein Requirements: [place] Weight in Kg Used for Protein Requirements: 55 kg Estimated Total Protein (g/day): 55-66 g/day (1-1.2) Estimated Daily Total Fluid (ml/day): 5021-8297 ml/day Nutrition Related Findings: Arnol: 17. I&O: [...] 10/06/24 bed scale, 11/07/24 120# bed scale) [place] Body Weight (lbs) (Calculated): 120 lbs [place] Body Weight (Kg) (Calculated): 55 kg % [place] Body Weight (Calculated): 97.5 % BMI (kg/m2) [...] soon to determine Rose Pizarro RD Contact: *[phone] Nephrology Progress Note Following for ESRD Pt [...] or concerns Karis Stone APRN, CNP A-G CABLE SPLICER HELPER [facility] [place] [phone] Pt seen and examined independently by me. I reviewed with MAYANK Mensah the saavedra portions of the medical history and the findings on physical examination. I discussed the patient s saavedra portions of the diagnosis and concur with the treatment plan as documented in her note. Please message me through [employer] with any questions or concerns. Sean Castaneda MD Hospitalist Progress Note 11/14/2024 Subjective: Admit Date: 11/12/2024 PCP: Roxie Spain Room#: 1C-134/1C-134 A BRIEF HOSPITAL COURSE: Apoorva is a 74 y.o. female with past medical history of CKD, hemodialysis (/Wed), history of blood transfusion, Hypertension, and seizure disorder who presents from [facility] with chief complaint of left upper extremity graft site complication with bloody drainage. She presents as a direct transfer from [facility] due to complications of left upper extremity [...] on November 05, 2024. On evaluation at [facility] ER she was noted to have a white count of 10.9 (down trended from 12.6 the day prior. Hemoglobin 9.3 (increased from 7.0 the day prior). BMP grossly unremarkable for ESRD patient. ED physician at [facility] discussed with vascular surgery and plan for admit with vascular surgery consult. Case was discussed with [place] emergency room physician and will plan to [...] Plan was for discharge back to [facility] today 11/13/24 however pt requires new authorization from [facility] to return to the facility. Interval History: Pt seen and evaluated sitting in bed, NAD. Dressing to LUE C/D/I, sensation intact, pulses palpable. Plan for HD treatment today. Auth pending for [facility]. Pt noted to have refused AM [...] tx today - Discharge back to [facility] pending auth - am labs, replace [...] Emergency Contact: Deshawn Crystal Mobile Relation: Brother Law Librarian needed? No Secondary Emergency Contact: Edward Ruggiero Mobile Relation: Significant Other Preferred language: Polish Law Librarian needed? No PARK Madison CNP Division of Hospitalist Medicine [facility] [1] Past Medical History: Diagnosis [...] with past medical history of CKD, hemodialysis (T//Sat), history of blood transfusion, Hypertension, and seizure disorder who presents from [facility] with chief complaint of left upper extremity graft site complication with bloody drainage. She presents as a direct transfer from [facility] due to complications of left upper extremity [...] on November 05, 2024. On evaluation at [facility] ER she was noted to have a white count of 10.9 (down trended from 12.6 the day prior. Hemoglobin 9.3 (increased from 7.0 the day prior). BMP grossly unremarkable for ESRD patient. ED physician at [facility] discussed with vascular surgery and plan for admit with vascular surgery consult. Case was discussed with [place] emergency room physician and will plan to [...] Plan was for discharge back to [facility] today 11/13/24 however pt requires new authorization from [facility] to return to the facility. Interval History: [...] Emergency Contact: Deshawn Crystal Mobile Relation: Brother Law Librarian needed? No Secondary Emergency Contact: Edward Ruggiero Mobile Relation: Significant Other Preferred language: Polish Law Librarian needed? No PARK Madison CNP Division of Hospitalist Medicine [facility] [1] Past Medical History: Diagnosis Date Chronic kidney disease (CKD) Hemodialysis patient (CMS/HCC) (HCC) Wednesday, , Wednesday History of blood transfusion 02/27/2022 Hypertension Seizure ([facility]) Developed seizure-like activity on 02/24 during [...] original note were not included. PHYSICAL THERAPY [facility] Initial Evaluation Name/MRN: Apoorva Gonzalez ([id number]) Evaluation Date: 11/13/2024 Date of : 1950 Admission Date: 11/12/2024 12:51 PM Age: 74 y.o. Room/Bed: 1C-134/1C-134 A Discharge Recommendation: Residential Facility Equipment Needed: No Assessment IMPRESSION: Pt [...] Diagnosis Date Noted Wound dehiscence 11/12/2024 Seizures ([facility]) 11/02/2024 ESRD (end stage renal disease) ([facility]) 11/02/2024 Dialysis patient ([facility]) 11/02/2024 Sepsis, due to unspecified organism, unspecified whether acute organ dysfunction present ([facility]) 10/22/2024 Edema of left lower extremity 10/05/2024 COVID-19 09/14/2024 Shortness of breath 03/02/2024 Pulmonary edema, acute ([facility]) 02/19/2024 Gastrointestinal hemorrhage, unspecified gastrointestinal hemorrhage [...] Raw Score (No Stairs) : 12 [facility] Score: Static standing (1 or more minutes) [...] 0923 Time Out 0940 Minutes 17 Isatu Quinonez PT Patient's Physical Therapy Plan of Care supervision is transferred to a [facility] Therapy Services Physical Therapist. Goals and/or treatment plan was established in collaboration with patient/family/other representatives. [1] Past Medical History: Diagnosis Date Chronic kidney disease (CKD) Hemodialysis patient (CMS/HCC) (HCC) Wednesday, , Wednesday History of blood transfusion 02/27/2022 Hypertension Seizure ([facility]) Developed seizure-like activity on 02/24 during hospital admission [2] Past Surgical History: Procedure Laterality Date AV FISTULA PLACEMENT Left 08/07/2022 COLONOSCOPY N/A 01/25/2024 Performed by Chrissy Gilman MD at [facility] ENDOSCOPY IR CVC TUNNELED DIALYSIS CATHETER PLACEMENT 02/27/2022 IR CVC TUNNELED CATHETER PLACEMENT 02/27/2022 Candis Andrade MD [facility] SPECIAL PROCEDURES IR EMBOLIZATION 01/24/2024 IR EMBOLIZATION 01/24/2024 Jovan Glynn MD [facility] SPECIAL PROCEDURES Images from the [...] am Chris Wills MD PGY-1, Urology Pager# [phone] 11/13/2024 7:31 AM Addendum 9:04 AM Plan [...] Jim Rader MD PGY-4, General Surgery Pager# [phone] 11/13/2024 9:12 AM [1] acetaminophen, 1,000 mg, [...] vascular surgery standpoint. documented in this encounter [facility] 11-15-2024 Nurse Note 03:50 Pt refusing daily lab work, FREDI Decker notified. NO new orders [facility] 11-14-2024 Nurse Note Patient Name: Apoorva Gonzalez Patient : 1950 Acct: [id number] Date of Admission: 11/12/2024 [facility] A Code Status: DNR-CCA Allergies: [...] 1230. Report Received from Primary RN at 6629. Primary RN (First Initial, Last Name, Title): [...] PLT 495 (H) 11/13/2024 0001 NA 137 11/13/2024 0001 K 4.0 11/13/2024 0001 CL 103 11/13/2024 0001 CO2 23 11/13/2024 0001 BUN 16 11/13/2024 0001 CREATININE 3.51 (H) 11/13/2024 0001 CALCIUM 7.6 (L) 11/13/2024 0001 PHOS 2.7 10/26/2024 0657 IV Drips and Rate/Dose Continuous Meds[3] Safety - Before each treatment: Dialysis Machine No.: [id number] RO Machine Number: [id number] Dialyzer Lot No.: [id number] Tubing Lot Number: [id number] All Connections Secure: Yes Venous Parameters Set: Yes Arterial Parameters Set: Yes NS Bag: Yes Saline Line Double Clamped: Yes Dialyzer: Nipro Prime Volume (mL): 200 mL RO Machine Number: [id number] RO Machine Log Sheet Completed: Yes Machine Alarm Self Test: Completed, Passed (The machine passed all tests at 1208) (11/14/24 1209) Air Foam Detector: Proper Function, Tested Extracorporeal Circuit Tested for Integrity: Yes Machine Conductivity: 13.8 Manual Conductivity: 13.6 Manual Ph: 7.2 Bleach Test (Neg): Yes Bath Temperature: 36 C (96.8 F) Conductivity Meter Serial #: [id number] Machine Functioning Alarm Free? Yes Dialysis Bath: [...] due to increasing venous pressure. UF Removed- 1855 11/14/24 1515 400 mL/min 1160 ml/hr -190 mmHg [...] and report given to Primary RN at 1549. Primary RN (First Initial, Last Name, Title): [...] End stage congestive heart failure (HCC) [3] [facility] 11-14-2024 Consult note Associated Order (s): IP CONSULT TO PSYCHIATRY Images from the original note were not included. [facility] Medical [facility] Department of Psychiatry Nurse Practitioner Consult Note Please contact Student Affairs Dean Psychiatry Listed in [employer] On-Call Finder Mon-Fri: From 1700 - 0800 and Weekends IDENTIFYING INFORMATION Name: Apoorva Gonzalez : 1950 TODAY'S DATE: 11/14/24 ADMISSION DATE: 11/12/2024 Reason for Psychiatric Consult: depression, hallucinations Requesting Physician: Dr. Castaneda Consulting Practitioner: MAYANK Mckenzie Hospital Day: 2 SUBJECTIVE: CHIEF COMPLAINT: CC: Chief Complaint Patient presents with Wound Check EMS from [facility] for bleeding fistula in left upper arm. DC from [facility] to [facility] previously. Principal Problem: Wound dehiscence History obtained from: Patient, Chart Review, and Staff HISTORY OF PRESENT ILLNESS: HPI: Apoorva Gonzalez is a 74 y.o., female who was hospitalized at [facility] for Wound dehiscence on 11/12/2024. PMH of hypertension, ESRD, seizure, hemodialysis (Wednesday, , Wednesday), PSH AV graft placement (Dr. 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 Pt sent to ED by facility due to increased bleeding at site and transferred to [facility] for vascular surgery eval. Psychiatry [...] PAST SURGICAL HISTORY Surgical History[5] Social History: [facility] since last hospitalization, finds family to [...] Depression: Not at risk (08/31/2024) Received from [facility] PHQ-2 Patient Health Questionnaire-2 Score: 0 Housing Stability: Low Risk (10/31/2024) Housing Stability Vital Sign Unable to Pay for Housing in the Last Year: No Number of Times Moved in the Last Year: 0 Homeless in the Last Year: No Utilities: Not At Risk (10/31/2024) [facility] Utilities Threatened with loss of utilities: No Health Literacy: Not on file OBJECTIVE: PHYSICAL/PSYCHIATRIC EXAM: Vitals: Vitals: 11/14/24 1445 11/14/24 1500 11/14/24 1515 11/14/24 1530 BP: 150/72 145/91 160/79 135/96 BP Location: Patient Position: Pulse: 74 78 81 84 Resp: Temp: TempSrc: SpO2: Weight: Height: Physical Exam: Physical Exam Vitals and nursing note reviewed. Exam conducted with a vp of technology present. Constitutional: Appearance: Normal appearance. HENT: Head: [...] QT Interval 338 QTC Interval 458 P Clayton 53 QRS Clayton 10 T Wave Clayton 161 NC Interval 107 Impression Sinus tachycardia LVH with [...] Follow up: peripherally as able Please contact Student Affairs Dean Psychiatry Listed in [facility] On-Call Finder for urgent needs [...] 1,000 mg, 1,000 mg, Oral, q8h, Jamie Willetting, DO, 1,000 mg at 11/14/24 0745 amLODIPine (Norvasc) tablet 5 mg, 5 mg, Oral, Daily, Jamie Willetting, DO, 5 mg at 11/14/24 0745 diphenhydrAMINE (BENADryl) injection 25 mg, 25 mg, IntraVENous, q6h PRN, PARK Ramirez CNP levETIRAcetam (Keppra) tablet 500 mg, 500 mg, Oral, Daily, Jamie Willetting, DO, 500 mg at 11/14/24 0745 melatonin tablet 5 mg, 5 mg, Oral, Nightly, Jamie Camarena, DO, 5 mg at 11/13/241951 naloxone (Narcan) [...] 01/25/2024 Performed by Chrissy Gilman MD at [facility] ENDOSCOPY IR CVC TUNNELED DIALYSIS CATHETER PLACEMENT 02/27/2022 IR CVC TUNNELED CATHETER PLACEMENT 02/27/2022 Candis Andrade MD [facility] SPECIAL PROCEDURES IR EMBOLIZATION 01/24/2024 IR EMBOLIZATION 01/24/2024 Jovan Glynn MD [facility] SPECIAL PROCEDURES [6] Social History [...] Wound dehiscence End stage congestive heart failure ([facility]) [facility] [employer] Work Phone: 11-14-2024 Consult note Associated Order (s): IP CONSULT TO PSYCHIATRY Images from the original note were not included. [facility] Medical [facility] Department of Psychiatry Nurse Practitioner Consult Note Please contact Student Affairs Dean Psychiatry Listed in [facility] On-Call Finder Mon-Fri: From 1700 - 0800 and Weekends IDENTIFYING INFORMATION Name: Apoorva Gonzalez : 1950 TODAY'S DATE: 11/14/24 ADMISSION DATE: 11/12/2024 Reason for Psychiatric Consult: depression, hallucinations Requesting Physician: Dr. Castaneda Consulting Practitioner: MAYANK Mckenzie Hospital Day: 2 SUBJECTIVE: CHIEF COMPLAINT: CC: Chief Complaint Patient presents with Wound Check EMS from [facility] for bleeding fistula in left upper arm. DC from [facility] to [facility] previously. Principal Problem: Wound dehiscence History obtained from: Patient, Chart Review, and Staff HISTORY OF PRESENT ILLNESS: HPI: Apoorva Gonzalez is a 74 y.o., female who was hospitalized at [facility] for Wound dehiscence on 11/12/2024. PMH of hypertension, ESRD, seizure, hemodialysis (Wednesday, , Wednesday), PSH AV graft placement (Dr. 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 Pt sent to ED by facility due to increased bleeding at site and transferred to [facility] for vascular surgery eval. Psychiatry [...] PAST SURGICAL HISTORY Surgical History[5] Social History: [facility] hospitalization, finds family to be [...] Depression: Not at risk (08/31/2024) Received from [facility] PHQ-2 Patient Health Questionnaire-2 Score: 0 Housing Stability: Low Risk (10/31/2024) Housing Stability Vital Sign Unable to Pay for Housing in the Last Year: No Number of Times Moved in the Last Year: 0 Homeless in the Last Year: No Utilities: Not At Risk (10/31/2024) [facility] Utilities Threatened with loss of utilities: No Health Literacy: Not on file OBJECTIVE: PHYSICAL/PSYCHIATRIC EXAM: Vitals: Vitals: 11/14/24 1445 11/14/24 1500 11/14/24 1515 11/14/24 1530 BP: 150/72 145/91 160/79 135/96 BP Location: Patient Position: Pulse: 74 78 81 84 Resp: Temp: TempSrc: SpO2: Weight: Height: Physical Exam: Physical Exam Vitals and nursing note reviewed. Exam conducted with a vp of technology present. Constitutional: Appearance: Normal appearance. HENT: Head: [...] QT Interval 338 QTC Interval 458 P Clayton 53 QRS Clayton 10 T Wave Clayton 161 NC Interval 107 Impression Sinus tachycardia LVH with [...] Follow up: peripherally as able Please contact Student Affairs Dean Psychiatry Listed in [facility] On-Call Finder for urgent needs [...] 1,000 mg, 1,000 mg, Oral, q8h, Jamie Willetting, DO, 1,000 mg at 11/14/24 0745 amLODIPine (Norvasc) tablet 5 mg, 5 mg, Oral, Daily, Jamie Camarena, DO, 5 mg at 11/14/24 0745 diphenhydrAMINE (BENADryl) injection 25 mg, 25 mg, IntraVENous, q6h PRN, Tevin M Stanik, SECURITY FLEX OFFICER - FREIGHT ROUTER levETIRAcetam (Keppra) tablet 500 mg, 500 mg, [...] 01/25/2024 Performed by Chrissy Gilman MD at [facility] ENDOSCOPY IR CVC TUNNELED DIALYSIS CATHETER PLACEMENT 02/27/2022 IR CVC TUNNELED CATHETER PLACEMENT 02/27/2022 Candis Andrade MD [facility] SPECIAL PROCEDURES IR EMBOLIZATION 01/24/2024 IR EMBOLIZATION 01/24/2024 Jovan Glynn MD [facility] SPECIAL PROCEDURES [6] Social History [...] Wound dehiscence End stage congestive heart failure ([facility]) Associated Order(s): Inpatient consult to Nephrology [facility] Consult Note Inpatient consult to Nephrology [...] from avg site. She was transferred to [facility] for vascular surgery evaluation. Pt [...] any questions or concerns Karis Stone APRN FREIGHT ROUTER A-G CABLE SPLICER HELPER [facility] [phone] Pt seen and examined independently by me. [...] Date Chronic kidney disease (CKD) Hemodialysis patient ([facility]) ([facility]) Wednesday, , Wednesday History of blood [...] Jamie Fling, DO, 5 mg at 11/13/24 06 polyethylene glycol (PEG) 3350 (Miralax) packet 17 [...] hypertension, ESRD, seizure, hemodialysis (Wednesday, , Wednesday), [facility] AV graft placement (Dr. 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 Patient was admitted 10/22-11/11. During that time her graft was excised, she underwent repeat surgery for hematoma evacuation, infectious disease was consulted and recommended Bactrim renally dosed through November 13. She represented today at [facility] from group home for bleeding from her LUE former graft site. She was transferred to [facility] for vascular surgery evaluation. Work [...] tomorrow after repeat evaluation - LAURA Jimenez director community organization for Dr. Rojas Medical History[1] Surgical History[2] [...] present, keeps thinking she is in her group home Psychiatric: Mood and Affect: Mood normal. Behavior: [...] History of blood transfusion 02/27/2022 Hypertension Seizure ([facility]) Developed seizure-like activity on 02/24 during hospital admission [2] Past Surgical History: Procedure Laterality Date AV FISTULA PLACEMENT Left 08/07/2022 COLONOSCOPY N/A 01/25/2024 Performed by Chrissy Gilman MD at [facility] ENDOSCOPY IR CVC TUNNELED DIALYSIS CATHETER PLACEMENT 02/27/2022 IR CVC TUNNELED CATHETER PLACEMENT 02/27/2022 Candis Andrade MD [facility] SPECIAL PROCEDURES IR EMBOLIZATION 01/24/2024 IR EMBOLIZATION 01/24/2024 Jovan Glynn MD [facility] SPECIAL PROCEDURES [3] [4] PRN [...] 11:14 AM EDT documented in this encounter [facility] 11-14-2024 Progress note Formatting of t his note might be different from the original. TAX RECORD CLERK spoke with [facility] [phone] son regarding [employer] benefits during a skilled stay in a facility. How insurance dictates skilled time in a SNF. Educated on medicaid, rules, and Patient liability in a SNF. TAX RECORD CLERK assisted with medicaid application and faxed to [email or web address] to sign paperwork and send back to TAX RECORD CLERK to file with [facility]. process worker to follow. [facility] 11-14-2024 Nurse Note 03:30 Pt refusing blood work. BRAYDEN meadows made aware. [facility] 11-13-2024 Note Referral placed to [facility] via [facility] per TCC request. Await review and response regarding ability to accept. TCC notified. [facility] 11-13-2024 Progress note Formatting of t his note might be different from the original. Referral placed to [facility] via [facility]port per TCC request. Await review and response regarding ability to accept. TCC notified. [facility] 11-13-2024 Progress note Formatting of t his note might be different from the original. Care Management Progress Note Short Medical why still here: Awaiting insurance authorization for return to SNF. Planned Discharge Disposition: Residential Facility Barriers/Today we still Wait: Facility pre-cert Length of Stay (Days): 1 GMLOS: No GMLOS Documented - CM referral acknowledged. - TCC received update that discharge order had been written. - TCC spoke with the patient to introduce self/role and the patient stated she did want to return to the facility. - TCC tasked ALUM PLANT SUPERVISOR to initiate referral in [facility]. - TCC spoke with admission staff May at [facility] who verified a new auth will be needed for the patient to return to the facility. - TCC tasked ALUM PLANT SUPERVISOR to initiate [employer] authorization and updated attending that authorization will be need to be approved before the patient can be discharge back to her SNF. Attending acknowledged the update. _ TCC will continue to follow. [facility] 11-13-2024 Hospital Discharge instructions PARK Ramirez CNP [...] Graham MD PCP: Roxie Spain Discharging Nurse: Jairon [facility] Unit/Room#: 1C-134/1C-134 A Discharging Unit Phone Number: [phone] Emergency Contact: Extended Emergency Contact Information Primary Emergency Contact: Deshawn Crystal Mobile Relation: Brother Law Librarian needed? No Secondary Emergency Contact: Edward Ruggiero Mobile Relation: Significant Other Preferred language: Polish Law Librarian needed? No Past Surgical History: Past Surgical History: Procedure Laterality Date AV FISTULA PLACEMENT Left 08/07/2022 COLONOSCOPY N/A 01/25/2024 Performed by Chrissy Gilman MD at [facility] ENDOSCOPY IR CVC TUNNELED DIALYSIS CATHETER PLACEMENT 02/27/2022 IR CVC TUNNELED CATHETER PLACEMENT 02/27/2022 Candis Andrade MD [facility] SPECIAL PROCEDURES IR EMBOLIZATION 01/24/2024 IR EMBOLIZATION 01/24/2024 Jovan Glynn MD [facility] SPECIAL PROCEDURES Immunization History: Immunization [...] assistance Toileting Minimal assistance Feeding Minimal assistance Paper Colorer Independent Med Delivery yes Wound Care Documentation [...] 11/12/24 Discharging to Facility/ Agency Name: [facility] Address: [address] [place] [address] Fax: Dialysis Facility (if applicable) Name: Address: Dialysis Schedule: Phone: Fax: Wire Walker/Screw Machine Tender signature: ICIAN SECTION Name: Apoorva Gonzalez Prognosis: good Condition at Discharge: stable Rehab Potential (if transferring to Rehab): good Recommended Labs or Other Treatments After Discharge: NA The individual is being admitted to a nursing facility directly from an [facility] or a unit of a hospital that is not operated by or licensed by [facility] under section 5119.14 or 5160-3-15.1 5 The individual requires the level of services provided by a nursing facility for the condition for which he or she was treated in the hospital and, Physician Certification: I certify the above information and transfer of Apoorva Gonzalez is necessary for the continuing treatment of the diagnosis listed and that she requires snf facility for less than 30 days. Update Admission H&P: No change in H&P PHYSICIAN SIGNATURE: documented in this encounter [facility] 11-13-2024 Consult note Associated Order (s): Inpatient consult to Nephrology [facility] Consult Note Inpatient consult to Nephrology Consult performed by: Karis Stone NP Consult ordered by: Aramis Blankenship MD HPI Patient is a 74 y.o. female who is admitted to hospital with complaints of bleeding AVG site . Nephrology consulted in view of ESRD. PMHx hypertension, ESRD, seizure, hemodialysis (Wednesday, , Wednesday), H AV graft placement (Dr. Rojas 2022), excision [...] from avg site. She was transferred to [facility] for vascular surgery evaluation. Pt [...] any questions or concerns Karis Stone APRN FREIGHT ROUTER A-G CABLE SPLICER HELPER [facility] [phone] Pt seen and examined independently by me. I reviewed with MAYANK Mensah the saavedra portions of the medical history and the findings on physical examination. I discussed the patient s saavedra portions of the diagnosis and concur with the treatment plan as documented in her note. Please message me through [employer] with any questions or concerns. Sean Castaneda [...] q8h, Jamie Camarena DO, 1,000 mg at 11/13/24 0909 amLODIPine [...] Daily, Jamie Fling, DO, 500 mg at 11/13/24 09 melatonin tablet 5 mg, 5 mg, Oral, [...] OR ondansetron, oxyCODONE, polyethylene glycol (PEG) 3350 [facility] 11-13-2024 Progress note Formatting of t his note might be different from the original. Patient is from a SNF. 30 day readmission is not warranted. [facility] 11-12-2024 Consult note Associated Order (s): IP CONSULT TO VASCULAR SURGERY Images from the original note were not included. Vascular Surgery Consultation Note Reason for Consult: LUE wound HISTORY OF PRESENT ILLNESS: The patient is a 74 y.o. female with PMHx hypertension, ESRD, seizure, hemodialysis (Wednesday, , Wednesday), [facility] AV graft placement (Dr. 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 Patient was admitted 10/22-11/11. During that time her graft was excised, she underwent repeat surgery for hematoma evacuation, infectious disease was consulted and recommended Bactrim renally dosed through November 13. She represented today at [facility] from group home for bleeding from her LUE former graft site. She was transferred to [facility] for vascular surgery evaluation. Work [...] tomorrow after repeat evaluation - LAURA Jimenez director community organization for Dr. Rojas Medical History[1] Surgical History[2] [...] present, keeps thinking she is in her group home Psychiatric: Mood and Affect: Mood normal. Behavior: [...] History of blood transfusion 02/27/2022 Hypertension Seizure ([facility]) Developed seizure-like activity on 02/24 during hospital admission [2] Past Surgical History: Procedure Laterality Date AV FISTULA PLACEMENT Left 08/07/2022 COLONOSCOPY N/A 01/25/2024 Performed by Chrissy Gilman MD at [facility] ENDOSCOPY IR CVC TUNNELED DIALYSIS CATHETER PLACEMENT 02/27/2022 IR CVC TUNNELED CATHETER PLACEMENT 02/27/2022 Candis Andrade MD [facility] SPECIAL PROCEDURES IR EMBOLIZATION 01/24/2024 IR EMBOLIZATION 01/24/2024 Jovan Glynn MD [facility] SPECIAL PROCEDURES [3] [4] PRN [...] Jimenez MD at 11/13/2024 11:14 AM EDT [facility] [employer] Work Phone: 11-12-2024 History and physical note [...] She presents as a direct transfer from [facility] due to complications of left upper extremity [...] on November 05, 2024. On evaluation at [facility] ER she was noted to have a white count of 10.9 (down trended from 12.6 the day prior. Hemoglobin 9.3 (increased from 7.0 the day prior). BMP grossly unremarkable for ESRD patient. ED physician at [facility] discussed with vascular surgery and plan for admit with vascular surgery consult. Case discussed with [facility] emergency room physician and will plan to [...] Emergency Contact: Deshawn Crystal Mobile Relation: Brother Law Librarian needed? No Secondary Emergency Contact: Edward Ruggiero Mobile Relation: Significant Other Preferred language: Polish Law Librarian needed? No [employer] Apoorva Navarro Rajinder : 1950 Primary Care Physician: Roxie Spain The patient and/or family/surrogate voluntarily agreed to participate in ACP services. Patient s cognitive capacity: Intact Code Status: [_] [FULL CODE - Continue all advanced life support: CPR,intubation,invasive procedures] [X_] [DNR-CCA - DO NOT do CPR, intubation] [_] [DNR-SIDE STITCHER - Comfort care only] [_] DNR form [...] Camarena DO Division of Hospitalist Medicine [facility] [1] Past Medical History: Diagnosis Date Chronic kidney disease (CKD) Hemodialysis patient (CMS/HCC) ([facility]) Wednesday, , Wednesday History of blood transfusion 02/27/2022 Hypertension Seizure ([facility]) Developed seizure-like activity on 02/24 during hospital admission [2] Past Surgical History: Procedure Laterality Date AV FISTULA PLACEMENT Left 08/07/2022 COLONOSCOPY N/A 01/25/2024 Performed by Chrissy Gilman MD at [facility] ENDOSCOPY IR CVC TUNNELED DIALYSIS CATHETER PLACEMENT 02/27/2022 IR CVC TUNNELED CATHETER PLACEMENT 02/27/2022 Candis Andrade MD [facility] SPECIAL PROCEDURES IR EMBOLIZATION 01/24/2024 IR EMBOLIZATION 01/24/2024 Jovan Glynn MD [facility] SPECIAL PROCEDURES [3] Family History [...] Jamie Camarena DO [5] No Known Allergies [employer] Work Phone: 11-12-2024 Note [facility] [employer] [facility] 11-12-2024 History and physical note Attending [...] She presents as a direct transfer from [facility] due to complications of left upper extremity [...] on November 05, 2024. On evaluation at [facility] ER she was noted to have a white count of 10.9 (down trended from 12.6 the day prior. Hemoglobin 9.3 (increased from 7.0 the day prior). BMP grossly unremarkable for ESRD patient. ED physician at [facility] discussed with vascular surgery and plan for admit with vascular surgery consult. Case discussed with [facility] emergency room physician and will plan to [...] Emergency Contact: Deshawn Crystal Mobile Relation: Brother Law Librarian needed? No Secondary Emergency Contact: RuggieroEdward Mobile Relation: Significant Other Preferred language: Polish Law Librarian needed? No ADV[employer] Apoorva Navarro Rajinder : 1950 Primary Care Physician: Roxie Spain The patient and/or family/surrogate voluntarily agreed to participate in ACP services. Patient s cognitive capacity: Intact Code Status: [_] [FULL CODE - Continue all advanced life support: CPR,intubation,invasive procedures] [X_] [DNR-CCA - DO NOT do CPR, intubation] [_] [DNR-SIDE STITCHER - Comfort care only] [_] DNR form [...] Camarena DO Division of Hospitalist Medicine [facility] [1] Past Medical History: Diagnosis Date Chronic kidney disease (CKD) Hemodialysis patient (CMS/HCC) (HCC) Wednesday, , Wednesday History of blood transfusion 02/27/2022 Hypertension Seizure (HCC) Developed seizure-like activity on 02/24 during hospital admission [2] Past Surgical History: Procedure Laterality Date AV FISTULA PLACEMENT Left 08/07/2022 COLONOSCOPY N/A 01/25/2024 Performed by Chrissy Gilman MD at [facility] ENDOSCOPY IR CVC TUNNELED DIALYSIS CATHETER PLACEMENT 02/27/2022 IR CVC TUNNELED CATHETER PLACEMENT 02/27/2022 Candis Andrade MD [facility] SPECIAL PROCEDURES IR EMBOLIZATION 01/24/2024 IR EMBOLIZATION 01/24/2024 Jovan Glynn MD [facility] SPECIAL PROCEDURES [3] Family History [...] 250 UNIT/GM ointment, , Topical, PRN, Jamie Camarena DO [START ON 11/13/2024] collagenase 250 UNIT/GM [...] No Known Allergies documented in this encounter [facility] 11-12-2024 Emergency department Note Moody Harman at bedside for transport to [facility] for admission. Packet/blue card sent with crew. [facility] 11-12-2024 Emergency department Note Moody Harman at bedside for transport to [facility] for admission. Packet/blue card sent with crew. Report called to [facility]. Pt awaiting transport, resting comfortably at this time, side rails up x2, curtain remains open for safety. Emergency Department Encounter [facility] ED Patient: Apoorva Gonzalez : 1950 Date [...] wound dehiscence I [facility], for oxycodone. I also [...] to admit the patient to medicine at [facility], and will see her inpatient. Patient care also discussed with Dr. Camarena, [facility] hospitalist, who accepted the patient for [...] dictating provider for clarification.) Lorna Moore MD [facility] Roz Moore MD 11/12/24 1444 documented in this encounter [facility] 11-12-2024 Emergency department Note Report called to [facility]. Pt awaiting transport, resting comfortably at this time, side rails up x2, curtain remains open for safety. [facility] 11-12-2024 Physician Emergency department Note Emergency Department Encounter [facility] ED Patient: Apoorva Gonzalez : 1950 Date [...] wound dehiscence I reviewed external records [facility] 1 prescription, for oxycodone. I also [...] to admit the patient to medicine at [facility], and will see her inpatient. Patient care also discussed with Dr. Camarena, [facility] hospitalist, who accepted the patient for [...] [employer] Roz Moore MD 11/12/24 1444 [facility] 11-11-2024 Nurse Note [facility] dc to [facility] Called report to geraldine at [facility]. Pt brother at bedside aware of dc. Patient Name: Apoorva Navarro [place] Patient : 1950 Acct: [id number] Date of Admission: 10/22/2024 [facility] Code Status: DNR-CCA Allergies: Allergies[1] [...] 24 11/11/2024 0539 BUN 26 (H) 11/11/2024 0539 CREATININE 4.23 (H) 11/11/2024 0539 CALCIUM 7.3 (L) 11/11/2024 0539 PHOS 2.7 10/26/2024 0657 IV Drips and Rate/Dose Continuous Meds[3] Safety - Before each treatment: Dialysis Machine No.: [id number] RO Machine Number: [id number] Dialyzer Lot No.: [id number] Tubing Lot Number: [id number] [employer] Secure: Yes Venous Parameters Set: Yes Arterial Parameters Set: Yes NS Bag: Yes Saline Line Double Clamped: Yes Dialyzer: Nipro Prime Volume (mL): 200 mL RO Machine Number: [id number] RO Machine Log Sheet Completed: Yes Machine Alarm Self Test: Completed, Passed (The machine passed all tests at 0925) (11/11/24 0936) Air Foam Detector: Tested, Proper Function Extracorporeal Circuit Tested for Integrity: Yes Machine Conductivity: 13.9 Manual Conductivity: 14.2 Manual Ph: 7.4 Bleach Test (Neg): Yes Bath Temperature: 36 C (96.8 F) Conductivity Meter Serial #: [id number] Machine Functioning Alarm Free? Yes Dialysis Bath: K+ (Potassium): 2 Ca+ (Calcium): 2.5 Na+ (Sodium): 138 HCO3 (Bicarb): 32 Bicarbonate Concentrate Lot No.: [id number] Acid Concentrate Lot No.: [id number] Chlorine Testing - Before each treatment and [...] Critical Lab Value (hbg 6.8) Provider Name: Mariaelena Provider Role: CRISTO Method of Communication: Secure [...] (end stage renal disease) (HCC) Dialysis patient ([facility]) [3] Wound Care follow up visit for Pressure Injury Prevention. Pt's Arnol score= 14 on 11/10 Pt's pressure points assessed. Pt's Heels, Left elbow, Occiput and ears all intact. Rosey wrap in place to left upper extremity. [place] and blanchable tissues noted to bilateral heels. Pt currently followed by Wound CABLE SPLICER HELPER group for wounds to sacrum extending to left buttock. For sacrum/left buttock wound assessment and treatment plan, please see Wound/Ostomy CABLE SPLICER HELPER progress notes. Instructed pt on pressure injury prevention and importance of turning/postioning every 2hrs while in bed and every 15 min while sitting in chair. Instructed on use and care of waffle chair cushion. Verbalized understanding. Prevention Measures in place, including: [place] sheet with pillows/wedges, Foam heel protectors (obtained and applied), Heels elevated off bed on pillows, Zinc/Moisture Barrier ointment, Waffle chair cushion. Skin Care precaution order set in place. Will continue to follow pt. Please Vocera for any questions or concerns. Kirit High RN Patient Name: Apoorva Gonzalez Patient : 1950 Acct: [id number] Date of Admission: 10/22/2024 [facility] Code Status: DNR-CCA Allergies: Allergies[1] [...] Treatment: Yes If yes, by whom: Juli MAIRE Date of Last Dressing Change: November 09, [...] 16.0 (H) 11/09/2024225 HGB 8.6 (L) 11/09/2024 075 HGB 9.1 10/05/2024 1419 HCT 25.9 (L) 11/09/2024 0750 PLT 414 11/09/2024225 NA 134 (L) 11/09/2024225 K 4.5 11/09/2024225 CL 102 11/09/2024225 CO2 24 11/09/2024225 BUN 24 (H) 11/09/2024225 CREATININE 4.02 (H) 11/09/2024225 CALCIUM 7.4 (L) 11/09/2024225 PHOS 2.7 10/26/2024656 IV Drips and Rate/Dose Continuous Meds[3] Safety - Before each treatment: Dialysis Machine No.: [id number] RO Machine Number: [id number] Dialyzer Lot No.: [id number] Tubing Lot Number: [id number] [employer] Secure: Yes Venous Parameters Set: Yes Arterial Parameters Set: Yes NS Bag: Yes Saline Line Double Clamped: Yes Dialyzer: Nipro Prime Volume (mL): 250 mL RO Machine Number: [id number] RO Machine Log Sheet Completed: Yes Machine Alarm Self Test: Completed, Passed (11/09/24 0752) Air Foam Detector: Tested, Proper Function, pH Reading Extracorporeal Circuit Tested for Integrity: Yes Machine Conductivity: 13.8 Manual Conductivity: 14 Manual Ph: 7.2 Bleach Test (Neg): Yes Bath Temperature: 36 C (96.8 F) Conductivity Meter Serial #: [id number] Machine Functioning Alarm Free? Yes Dialysis Bath: K+ (Potassium): 2 Ca+ (Calcium): 2.5 Na+ (Sodium): 138 HCO3 (Bicarb): 32 Bicarbonate Concentrate Lot No.: [id number] Acid Concentrate Lot No.: [id number] Chlorine Testing - Before each treatment and [...] -130 mmHg 120 mmHg 70 600 Yes Mona Benavides, FREIGHT ROUTER & vasc surgery at [facility], increase UF goal if tolerated, 925 ml [...] Critical Lab Value (hbg 6.8) Provider Name: Mariaelena Provider Role: CRISTO Method of Communication: Secure chat Response: Waiting for response Notification Date: 11/09/24 Notification Time: 250 Provider Role: CRISTO Method of Communication: Secure chat Response: Waiting for response Notification Time: 0251 Handoff complete and report given to Primary [...] currently receiving 1 unit of blood. Notified supervisor conditioning yard of complaints of pain and findings awaiting reply. Blood sugar 67 orange juice given pt resting quietly , denies any s/s of hypoglycemia. 1L removed Patient Name: Apoorva Gonzalez Patient : 1950 Acct: [id number] Date of Admission: 10/22/2024 [facility] Code Status: DNR-CCA Allergies: Allergies[1] [...] Regular Other (Comment) None (Room air) Diminished [place] Warm;Dry Soft;Rounded Active Right lower extremity;Left lower extremity -- None None +1 +2 11/07/24 1259 Alert (0) x4 Regular Other (Comment) None (Room air) Diminished [place] Warm;Dry Soft;Rounded Active Right lower extremity;Left lower [...] - Before each treatment: Dialysis Machine No.: [id number] RO Machine Number: [id number] Dialyzer Lot No.: [id number] Tubing Lot Number: [id number] [employer] Secure: Yes Venous Parameters Set: Yes Arterial Parameters Set: Yes NS Bag: Yes Saline Line Double Clamped: Yes Dialyzer: Nipro Prime Volume (mL): 200 mL RO Machine Number: [id number] RO Machine Log Sheet Completed: Yes Machine Alarm Self Test: Completed, Passed (11/07/24942) Air Foam Detector: Tested, Proper Function, pH Reading Extracorporeal Circuit Tested for Integrity: Yes Machine Conductivity: 13.6 Manual Conductivity: 13.4 Manual Ph: 7.4 Bleach Test (Neg): Yes Bath Temperature: 36 C (96.8 F) Conductivity Meter Serial #: [id number] Machine Functioning Alarm Free? Yes Dialysis Bath: K+ (Potassium): 2 Ca+ (Calcium): 2.5 Na+ (Sodium): 138 HCO3 (Bicarb): 32 Bicarbonate Concentrate Lot No.: [id number] Acid Concentrate Lot No.: [id number] Chlorine Testing - Before each treatment and every 4 hours: Time On: 942 Time Off: 1243 Treatment Goal: 1 kg [...] -- 54.7 kg (120 lb 11.2 oz) 11/06/241917 138/88 37.2 C (99 F) Temporal 98 [...] Name: Apoorva Gonzalez Patient : 1950 Acct: [id number] Date of Admission: 10/22/2024 [facility] A Code Status: DNR-CCA Allergies: Allergies[1] [...] 23.0 (L) 11/04/2024 025 PLT 372 11/04/2024 0250 NA 139 11/04/2024 0100 K 4.0 11/04/2024 010 CL 104 11/04/2024 010 CO2 24 11/04/2024 010 BUN 25 (H) 11/04/202499 CREATININE 3.47 (H) 11/04/2024 010 CALCIUM 7.2 (L) 11/04/202499 PHOS 2.7 10/26/2024 0657 IV Drips and Rate/Dose Continuous Meds[3] Safety - Before each treatment: Dialysis Machine No.: [id number] Machine Number: [id number] Dialyzer Lot No.: [id number] Tubing Lot Number: [id number] All Connections Secure: Yes Venous Parameters Set: Yes Arterial Parameters Set: Yes NS Bag: Yes Saline Line Double Clamped: Yes Dialyzer: Nipro Prime Volume (mL): 250 mL RO Machine Number: [id number] RO Machine Log Sheet Completed: Yes Machine Alarm Self Test: Completed, Passed (11/04/24 0940) Air Foam Detector: Tested, Proper Function, pH Reading Extracorporeal Circuit Tested for Integrity: Yes Machine Conductivity: 13.9 Manual Conductivity: 14 Manual Ph: 7.2 Bleach Test (Neg): Yes Bath Temperature: 36 C (96.8 F) Conductivity Meter Serial #: [id number] Machine Functioning Alarm Free? Yes Dialysis Bath: K+ (Potassium): 2 Ca+ (Calcium): 2.5 Na+ (Sodium): 138 HCO3 (Bicarb): 32 Bicarbonate Concentrate Lot No.: [id number] Acid Concentrate Lot No.: [id number] Chlorine Testing - Before each treatment and every 4 hours: Time On: 0950 Time Off: 1250 Treatment Goal: 1 kg Weight Height: 162.6 cm (5' 4") (10/26/24 1438) Weight: 55.2 kg (121 lb 11.2 oz) (11/04/24599) BMI (Calculated): 20.88 (11/04/24599) 1st check: less [...] Name: Apoorva Gonzalez Patient : 1950 Acct: [id number] Date of Admission: 10/22/2024 [facility] A Code Status: DNR-CCA Allergies: Allergies[1] [...] 9.1 10/05/2024 1419 HCT 24.1 (L) 11/02/2024 165 PLT 530 (H) 11/02/2024 0241 NA 136 11/02/2024 1155 K 5.0 11/02/2024 115 CL 105 11/02/2024 115 CO2 20 (L) 11/02/2024 115 BUN 23 11/02/2024 115 CREATININE 3.99 (H) 11/02/2024 1155 CALCIUM 7.5 (L) 11/02/2024 1155 PHOS 2.7 10/26/2024 0657 IV Drips and Rate/Dose Continuous Meds[3] Safety - Before each treatment: Dialysis Machine No.: [id number] RO Machine Number: [id number] Dialyzer Lot No.: [id number] Tubing Lot Number: [id number] All Connections Secure: Yes Venous Parameters Set: Yes Arterial Parameters Set: Yes NS Bag: Yes Saline Line Double Clamped: Yes Dialyzer: Nipro Prime Volume (mL): 200 mL RO Machine Number: [id number] RO Machine Log Sheet Completed: Yes Machine Alarm Self Test: Completed, Passed (The machine passed all tests at 1520.) (11/02/24 1527) Air Foam Detector: Proper Function, Tested Extracorporeal Circuit Tested for Integrity: Yes Machine Conductivity: 13.5 Manual Conductivity: 13.6 Manual Ph: 7.2 Bleach Test (Neg): Yes Bath Temperature: 36 C (96.8 F) Conductivity Meter Serial #: [id number] Machine Functioning Alarm Free? Yes Dialysis Bath: K+ (Potassium): 2 Ca+ (Calcium): 2.5 Na+ (Sodium): 138 HCO3 (Bicarb): 32 Bicarbonate Concentrate Lot No.: [id number] Acid Concentrate Lot No.: [id number] Chlorine Testing - Before each treatment and [...] 80 600 Yes Patient's signifigant other at [facility], [facility] Removed- 746 11/02/24 1715 400 [...] number verified in chart Patient transferred to [facility] with the transport team.she is going to [facility] room number [phone].Handoff given to the [facility] nurse. Patient Name: Apoorva Gonzalez Patient : 1950 Acct: [id number] Date of Admission: 10/22/2024 Room/Bed: B2-258/[facility] A Code Status: DNR-CCA Allergies: Allergies[1] Diagnosis: [...] 10/31/24 0815 -- -- -- -- -- [place];Red Warm;Dry Soft;Flat Active Left lower extremity;Right lower extremity Non-pitting None None None None 10/31/24 1116 Alert (0) 2 Regular None (Room air) Diminished [place] Warm;Dry Soft -- Left lower extremity -- -- -- -- +1 10/31/24 1440 Alert (0) 2 Regular None (Room air) Diminished [place] Warm;Dry Soft Active Left lower extremity -- [...] - Before each treatment: Dialysis Machine No.: [id number] RO Machine Number: [id number] Dialyzer Lot No.: [id number] Tubing Lot Number: [id number] All Connections Secure: Yes Venous Parameters Set: Yes Arterial Parameters Set: Yes NS Bag: Yes Saline Line Double Clamped: Yes Dialyzer: Nipro Prime Volume (mL): 200 mL RO Machine Number: [id number] RO Machine Log Sheet Completed: Yes Machine Alarm Self Test: Completed, Passed (Machine passed all tests at 1057) (10/31/24 1116) Air Foam Detector: Tested, Proper Function Extracorporeal Circuit Tested for Integrity: Yes Machine Conductivity: 14.1 Manual Conductivity: 14 Manual Ph: 7.4 Bleach Test (Neg): Yes Bath Temperature: 36 C (96.8 F) Conductivity Meter Serial #: [id number] Machine Functioning Alarm Free? Yes Dialysis Bath: K+ (Potassium): 3 Ca+ (Calcium): 2.5 Na+ (Sodium): 138 HCO3 (Bicarb): 32 Bicarbonate Concentrate Lot No.: [id number] Acid Concentrate Lot No.: [id number] Chlorine Testing - Before each treatment and every 4 hours: Time On: 1130 Time Off: 1430 Treatment Goal: 1L Weight Height: 162.6 cm (5' 4") (10/26/248) Weight: 51 kg (112 lb 7 [...] Secure chat Response: See orders Notification Time: 807 Handoff complete and report [...] Name: Apoorva Gonzalez Patient : 1950 Acct: [id number] Date of Admission: 10/22/2024 Room[facility]Bed: [facility] A Code Status: DNR-CCA [...] 10/28/24 0735 -- -- -- -- Clear;Diminished [place];Red Warm;Dry Soft Active -- -- -- -- -- 10/28/24 09 Alert (0) 4 Regular None (Room air) Clear;Diminished [place];Red Warm;Dry Soft Active Left lower extremity;Right lower extremity -- +1 +1 Patient is agreeable to dialysis, consent verified prior to treatment 10/28/24 1225 Alert (0) 4 Regular None (Room air) Clear;Diminished [place];Red Warm;Dry Soft Active Left lower extremity Non-pitting [...] - Before each treatment: Dialysis Machine No.: [id number] Machine Number: [id number] Dialyzer Lot No.: [id number] Tubing Lot Number: [id number] All Connections Secure: Yes Venous Parameters Set: Yes Arterial Parameters Set: Yes NS Bag: Yes Saline Line Double Clamped: Yes Dialyzer: Nipro Prime Volume (mL): 200 mL RO Machine Number: [id number] RO Machine Log Sheet Completed: Yes Machine Alarm Self Test: Completed, Passed (The machine passed all tests at 0851) (10/28/24905) Air Foam Detector: Tested, Proper Function Extracorporeal Circuit Tested for Integrity: Yes Machine Conductivity: 14 Manual Conductivity: 14.2 Manual Ph: 7.4 Bleach Test (Neg): Yes Bath Temperature: 36 C (96.8 F) Conductivity Meter Serial #: [id number] Machine Functioning Alarm Free? Yes Dialysis Bath: K+ (Potassium): 3 Ca+ (Calcium): 2.5 Na+ (Sodium): 138 HCO3 (Bicarb): 32 Bicarbonate Concentrate Lot No.: [id number] Acid Concentrate Lot No.: [id number] Chlorine Testing - Before each treatment and every 4 hours: Time On: 914 Time Off: 1215 Treatment Goal: 1L Weight [...] Name: Apoorva Gonzalez Patient : 1950 Acct: [id number] Date of Admission: 10/22/2024 Room/Bed: 222/ A Code Status: Full Code Allergies: Allergies[1] [...] 1035. Report Received from Primary RN at 0904. Primary RN (First Initial, Last Name, Title): [...] - Before each treatment: Dialysis Machine No.: [id number] RO Machine Number: [id number] Dialyzer Lot No.: [id number] Tubing Lot Number: [id number] All Connections Secure: Yes Venous Parameters Set: Yes Arterial Parameters Set: Yes NS Bag: Yes Saline Line Double Clamped: Yes Dialyzer: Nipro Prime Volume (mL): 200 mL RO Machine Number: [id number] RO Machine Log Sheet Completed: Yes Machine Alarm Self Test: Completed, Passed (10/26/24 1035) Air Foam Detector: Tested, Proper Function, pH Reading Extracorporeal Circuit Tested for Integrity: Yes Machine Conductivity: 14 Manual Conductivity: 14 Manual Ph: 7.2 Bleach Test (Neg): Yes Bath Temperature: 36 C (96.8 F) Conductivity Meter Serial #: [id number] Machine Functioning Alarm Free? Yes Dialysis Bath: K+ (Potassium): 3 Ca+ (Calcium): 2.5 Na+ (Sodium): 138 HCO3 (Bicarb): 32 Bicarbonate Concentrate Lot No.: [id number] Acid Concentrate Lot No.: [id number] Chlorine Testing - Before each treatment and every 4 hours: Time On: 1035 Time Off: 1035 Treatment Goal: 1 Weight Height: 162.6 cm (5' 4") (10/23/24 1034) Weight: 51.3 kg (113 lb 1.5 oz) (10/25/24 005) BMI (Calculated): 19.4 (10/25/240) 1st check: less than 0.1 ppm at: [...] mmHg 130 mmHg 100 600 Yes LVSD, PLAQUE MAKER aware of BP 10/26/24 1300 350 mL/min 470 ml/hr -120 mmHg 130 mmHg 100 600 Yes LVSD, PLAQUE MAKER aware of BP, waiting on reply from [...] C (98.8 F) Oral 100 16 -- 10/25/242115 139/95 -- -- 103 -- -- 10/25/242100 [...] Name: Apoorva Gonzalez Patient : 1950 Acct: [id number] Date of Admission: 10/22/2024 Room/Bed: 22202/22202 A Code Status: Full Code Allergies: Allergies[1] [...] - Before each treatment: Dialysis Machine No.: [id number] RO Machine Number: [id number] Dialyzer Lot No.: [id number] Tubing Lot Number: [id number] All Connections Secure: Yes Venous Parameters Set: Yes Arterial Parameters Set: Yes NS Bag: Yes Saline Line Double Clamped: Yes Dialyzer: Nipro Prime Volume (mL): 200 mL RO Machine Number: [id number] RO Machine Log Sheet Completed: Yes Machine Alarm Self Test: Completed, Passed (Machine passed all tests at 0916) (10/24/24 0919) Air Foam Detector: Tested, Proper Function Extracorporeal Circuit Tested for Integrity: Yes Machine Conductivity: 14.0 Manual Conductivity: 14.2 Manual Ph: 7.4 Bleach Test (Neg): Yes Bath Temperature: 36 C (96.8 F) Conductivity Meter Serial #: [id number] Machine Functioning Alarm Free? Yes Dialysis Bath: [...] back to the ICU. Patient arrived from [facility] for temporary central line placement. Dr. ruvalcaba in to speak with the patient/family regarding procedure, and consent was obtained. Patient's lab values and allergies were reviewed. Patient was placed supine on exam table, prepped and draped in sterile fashion. Telemetry monitors were placed. IR Procedures: Apoorva is here at [facility] from the ICU for a TLC (Temp [...] ready. Patient transported to ICU by Nursing Supervisor Particleboard and Kacey RN Report called to [place] PLAQUE MAKER. Wound Care consulted for Pressure Injury Prevention. Pt's Arnol score= 13 on 10/23 Pt's pressure points assessed. Pt turned with max assist of 2 (this RN and Wound CABLE SPLICER HELPER) for posterior assessment. Pt's Heels, Back, Elbows, Occiput and ears all intact. Unstageable pressure injury noted to sacrum extending to left buttock. Wound CABLE SPLICER HELPER present at bedside for concurrent skin assessment. For sacrum/left buttock wound assessment and treatment plan, please see Wound/Ostomy CABLE SPLICER HELPER progress notes. Prevention Measures in place, including: [...] Kirti High RN documented in this encounter [facility] 11-11-2024 Note [facility] 11-11-2024 Hospital course Narrative Hospitalist Discharge [...] Complexity: follow up within 7-14 calendar days (40950) [x] Severe Complexity: follow up within 7 calendar days (41712) Follow up Testing, Pending results or Referrals [...] frame. Signed: Gerard Carrillo DO Division of Hospitalrust Medicine [facility] 11/11/2024, 3:40 PM [1] Past Medical History: Diagnosis Date Chronic kidney disease (CKD) Hemodialysis patient (CMS/HCC) (HCC) Wednesday, , Wednesday History of blood transfusion 02/27/2022 Hypertension Seizure (HCC) Developed seizure-like activity on 02/24 during hospital admission documented in this encounter [facility] 11-11-2024 History of Present illness Narrative Nephrology [...] PLT 414 -- 382 480* Recent Labs 11/09/2422511/10/2421711/11/24 0539 NA 134* 134* [...] HD TTS , Please message me through [employer] with any questions or concerns. Jose G [...] between incision sites w/o interval change. Good homemaking rehabilitation consultant strength and sensation. Rewrapped w/ compression dressing [...] directly with any concerns WDW Dr. Jimenez director community organization for Dr. Rojas Cosigned by Dee Jimenez [...] BMP: Recent Labs 11/08/24 0326 11/09/24 0226 11/10/24 [...] Emergency Contact: Deshawn Crystal Mobile Relation: Brother Law Librarian needed? No Secondary Emergency Contact: Edward Ruggiero Mobile Relation: Significant Other Preferred language: Polish Law Librarian needed? No Gerard Carrillo DO Division of Hospitalist Medicine [facility] [1] Past Medical History: Diagnosis [...] with ONS and diet once appropriate; noted MD/FREIGHT ROUTER had been documenting Severe Malnutrition (until 10/31)) [...] Accumulation: No significant fluid accumulation (per flowsheet) Automotive Specialty Technician Strength: Not Performed Nutrition Assessment: Pt with previously noted PMH including ESRD on HD, Seizures, HTN, HLD, recent admission to OSH for sudden cardiac arrest / right thigh/hip abscess s/p I&D 08/16 presented initially to [facility] from [facility] on 10/22 due to AMS; in ED pt noted to be febrile 101.3 at [facility], tachycardic, tachypneic and with elevated WBC, received IV fluid bolus, antibiotics, admitted to [facility] for further work up; Critical care consulted the following day as pt remained febrile, tachycardic and tachypneic, WBC count also continuing to increase with worsening anemia; pt has had multiple admissions 08/14 to 08/24 at [facility] for cardiac arrest, 08/26 to [...] catheter placed on discharge on 10/12; at [facility] PT/OT/LP, ID, Nephrology, and Wound Care consulted; pt was transferred out of ICU services to medical services on 10/24, noted to be receiving Meropenem and Vancomycin IV (stopped, transitioned to oral abx) for infected pressure ulcer on left buttocks; at [facility] Palliative Care was following, speaking with pt's brother, code status changed to DNR-CCA; pt noted to need fistula placement for HD, has temp HD cath in place, transferred to [facility] 10/31 for new fistula placement; [...] ROSEY compression and elevating extremity, considering DDAVP. MACHINE DYER following (signed off previously, diet progressed to [...] bed scale) % Weight Change (Calculated): -1.2 [place] Body Weight (lbs) (Calculated): 120 lbs [place] Body Weight (Kg) (Calculated): 55 kg % [place] Body Weight (Calculated): 97.7 % BMI (kg/m2) [...] Alexus Denney RD Contact: Secure chat or *[phone] [facility] - Infectious Diseases Attending Progress [...] LYMPHOPCT 15.1 11/10/2024217 LYMPHOPCT 8 (L) 11/01/2024 0317 MONOPCT 8.1 11/10/2024217 MONOPCT 2 (L) 11/01/2024316 BASOPCT 1.0 11/10/20248 BASOPCT 1 11/01/2024 0317 NEUTROABS 9.4 (H) [...] PLT 376 414 -- 382 Recent Labs 11/08/2432511/09/246 11/10/24 0218 NA 135* 134* 134* K [...] any questions or concerns Karis Stone APRN FREIGHT ROUTER A-G CABLE SPLICER HELPER [facility] [phone] Pt seen and examined independently by me. I reviewed with Karis Stone APRN-TAMIR the saavedra portions of the medical history and the findings on physical examination. I discussed the patient s saavedra portions of the diagnosis and concur with the treatment plan as documented in her note. Please message me through [employer] with any questions or concerns. Sean Castaneda [...] between incision sites w/o interval change. Good homemaking rehabilitation consultant strength and sensation. Rewrapped w/ compression dressing [...] Doppler Signal [] Lab/imaging: -Reviewed ASSESSMENT: Apoorva Westisael Gonzalez is a 74 y.o. female s/p [...] edge, no obvious additional active bleed. Equal homemaking rehabilitation consultant strength, 2+ palpable radial pulses and sensation [...] DDAVP for possible uremic coagulopathy Hemodialysis T, , S Rest of care [...] lower extremity edema Data: Labs: Recent Labs 11/07/2410711/08/2432511/09/24 0226 11/09/24 0750 WBC 14.1* 13.0* 16.0* -- HGB 7.6* 7.5* 6.8* 8.6* HCT 23.6* 23.1* 21.4* 25.9* MCV 88.7 88.8 89.2 -- PLT 377 376 414 -- Recent Labs 11/07/2410711/08/246 11/09/24 0226 NA 139 135* 134* K [...] or concerns Karis Stone APRN, CNP A-G CABLE SPLICER HELPER [facility] [phone] Pt seen and examined independently by me. [...] History: Medical History[1] LABS: CBC: Recent Labs 11/07/2410711/08/2432511/09/24 0226 11/09/24 0750 WBC 14.1* 13.0* 16.0* [...] Emergency Contact: Deshawn Crystal Mobile Relation: Brother Law Librarian needed? No Secondary Emergency Contact: Edward Ruggiero Mobile Relation: Significant Other Preferred language: Polish Law Librarian needed? No Gerard Carrillo DO Division of Hospitalist Medicine [facility] [1] Past Medical History: Diagnosis Date Chronic kidney disease (CKD) Hemodialysis patient ([facility]/HCC) ([facility]) Wednesday, , Wednesday History of blood transfusion 02/27/2022 Hypertension Seizure ([facility]) Developed seizure-like activity on 02/24 during [...] Admit Date: 10/22/2024 PCP: Roxie Spain Room#: W6-397/W6-7 A BRIEF HOSPITAL COURSE: 74-year-old female presenting [...] Emergency Contact: Deshawn Crystal Mobile Relation: Brother Law Librarian needed? No Secondary Emergency Contact: Edward Ruggiero Mobile Relation: Significant Other Preferred language: Polish Law Librarian needed? No Gerard Carrillo DO Division of Hospitalist Medicine [facility] [1] Past Medical History: Diagnosis Date Chronic kidney disease (CKD) Hemodialysis patient (CMS/HCC) (HCC) Wednesday, , Wednesday History of blood transfusion 02/27/2022 Hypertension Seizure ([facility]) Developed seizure-like activity on 02/24 during [...] any questions or concerns Karis Stone APRN FREIGHT ROUTER A-G CABLE SPLICER HELPER [facility] [phone] Pt seen and examined independently by me. I reviewed with MAYANK Mensah the saavedra portions of the medical history and the findings on physical examination. I discussed the patient s saavedra portions of the diagnosis and concur with the treatment plan as documented in her note. Please message me through [employer] with any questions or concerns. Sean Castaneda MD [facility] - Infectious Diseases Attending Progress Note Subjective: ID following- last seen at [facility] on 11/02- transferred to [facility] for Vascualr evaluation of suspected [...] LYMPHOPCT 22.2 11/07/2024107 LYMPHOPCT 8 (L) 11/01/2024 031 MONOPCT 6.8 11/07/2024107 MONOPCT 2 (L) 11/01/2024316 [...] any questions or concerns Karis Stone APRN FREIGHT ROUTER A-G CABLE SPLICER HELPER [facility] [phone] Pt seen and examined independently by me. I reviewed with Karis Stone APRN-TAMIR the saavedra portions of the medical history and the findings on physical examination. I discussed the patient s saavedra portions of the diagnosis and concur with the treatment plan as documented in her note. Please message me through [employer] with any questions or concerns. Sean Castaneda [...] Admit Date: 10/22/2024 PCP: Roxie Spain Room#: W6-637/W6-697 A BRIEF HOSPITAL COURSE: 74-year-old female presenting [...] Emergency Contact: Deshawn Crystal Mobile Relation: Brother Law Librarian needed? No Secondary Emergency Contact: Edward Ruggiero Mobile Relation: Significant Other Preferred language: Polish Law Librarian needed? No Gerard Carrillo DO Division of Hospitalist Medicine [facility] [1] Past Medical History: Diagnosis Date Chronic kidney disease (CKD) Hemodialysis patient (CMS/HCC) (HCC) Wednesday, , Wednesday History of blood transfusion 02/27/2022 Hypertension Seizure ([facility]) Developed seizure-like activity on 02/24 during [...] ONS and liberalized diet; noted MD or FREIGHT ROUTER had been documenting Severe Malnutrition since 10/23) [...] ? beyond her baseline at least to yazidism, clavicle however could not quantify today) Fluid Accumulation: Mild (+2 LLE, nonpitting generalized/RLE edema) Automotive Specialty Technician Strength: Not Performed Nutrition Assessment: Pt with previously noted PMH including ESRD on HD, Seizures, HTN, HLD, recent admission to OSH for sudden cardiac arrest / right thigh/hip abscess s/p I&D 08/16 presented initially to [facility] from [facility] on 10/22 due to AMS; in ED pt noted to be febrile 101.3 at [facility], tachycardic, tachypneic and with elevated WBC, received IV fluid bolus, antibiotics, admitted to [facility] for further work up; Critical care consulted the following day as pt remained febrile, tachycardic and tachypneic, WBC count also continuing to increase with worsening anemia; pt has had multiple admissions 08/14 to 08/24 at [facility] for cardiac arrest, 08/26 to [...] catheter placed on discharge on 10/12; at [facility] PT/OT/LP, ID, Nephrology, and Wound Care consulted; pt was transferred out of ICU services to medical services on 10/24, noted to be receiving Meropenem and Vancomycin IV (stopped, transitioned to oral abx) for infected pressure ulcer on left buttocks; at [facility] Palliative Care was following, speaking with pt's brother, code status changed to DNR-CCA; pt noted to need fistula placement for HD, has temp HD cath in place, transferred to [facility] 10/31 for new fistula placement; here Vascular was consulted for same, recommended OR for assessment of AV fistula clot/infection 11/02; s/p further blood transfusion 11/02, 11/05 (hemoglobin today 9.3 mg/dL), 11/04-11/05 pt was having bleeding from AV fistula requiring transfusions, yesterday pt underwent exploration of LUE with evacuation of hematoma; last HD 11/04. MACHINE DYER following (signed off last week), diet progressed [...] house tray for lunch however breakfast was mongolian toast and coffee, dinner is not a [...] bed scale) % Weight Change (Calculated): -1.2 [place] Body Weight (lbs) (Calculated): 120 lbs [place] Body Weight (Kg) (Calculated): 55 kg % [place] Body Weight (Calculated): 97.7 % BMI (kg/m2) [...] Alexus Denney RD Contact: Secure chat or *[phone] Images from the original note were not included. PHYSICAL THERAPY [facility] Treatment Note Name/MRN: Apoorva Gonzalez ([id number]) Date of : 1950 Age: 74 y.o. Room/Bed: W6-637/W6-637 A Discharge Recommendation: Residential Facility Equipment Needed: No Assessment Pt motivated [...] (1 unit TP, 1 unit FA) Ana Shepard, PT Nephrology Progress Note Following for ESRD [...] any questions or concerns Karis Stone APRN FREIGHT ROUTER A-G CABLE SPLICER HELPER [facility] [phone] Pt seen and examined independently by me. I reviewed with Karis Stone APRN-FREIGHT ROUTER the saavedra portions of the medical history [...] Admit Date: 10/22/2024 PCP: Roxie Spain Room#: W6-717/W6-765 A Interval History: No acute events overnight. [...] with fever and tachycardia and lethargy to [facility] on 10/22/24. HC POA is partner = Edward and brother Deshawn Recently admitted from 09/13 to 10/12 at [facility] for new onset atrial fibrillation complicated [...] recent infected hematoma which was I&D at [facility] and treated with antibiotics from 08/14-08/24 in which she went under cardiac arrest which was thought to be due to the right thigh and anterior hip abscess - which was drained and she left with wound vac. Returned on 08/26 for expanding hematoma to the right thigh requiring 2 units of pRBC, and transferred to [facility] for IR emobolization of thigh hematoma, but a decision was made not to perform any intervention and she was discharged to SNF on 09/06. 10/22-10/31 [facility] ICU. Patient did not require vasopressors. October 28 transferred to [facility]. October 31 decided to transfer patient to [facility] for vascular assessment of fistula [...] cardiopulmonary arrest August 2024 at H [facility] Contact Information Primary Emergency Contact: BonillaDeshawn Mobile Relation: Brother Law Librarian needed? No Secondary Emergency Contact: Edward Ruggiero Mobile Relation: Significant Other Preferred language: Polish Law Librarian needed? No Candy Denis DO Division of Hospitalist Medicine Acute care [facility] [1] Past Medical History: Diagnosis Date Chronic kidney disease (CKD) Hemodialysis patient ([facility]) (HCC) Wednesday, , Wednesday History of [...] sodium chloride 0.9%, sodium chloride 0.9% [4] [facility] PROGRESS NOTE Subjective Interval History: Apoorva Gonzalez is being followed for ESRD. On November 05, 2024, Apoorva Gonzalez (: 1950) underwent a surgical procedure at [facility] for evacuation of a left upper extremity [...] Javier Somers III, MD, 650 mg at 11/04/24 2057 amLODIPine (Norvasc) tablet 5 mg, 5 mg, [...] infusion, 250 mL/hr, IntraVENous, PRN, Romain Meadows, CABLE SPLICER HELPER sodium chloride 0.9 % infusion, 250 mL/hr, IntraVENous, PRN, Raffy Rojas MD sodium chloride 0.9% (NS) flush 5-40 mL, 5-40 mL, IntraVENous, 2 times per day, Francisco Javier Somers III, MD, 10 mL at 11/04/24 2114 sodium chloride 0.9% (NS) flush 5-40 mL, [...] via telephone. Discussed with patient's brother and GENET Hess regarding the overnight events and recommendation [...] Admit Date: 10/22/2024 PCP: Roxie Spain Room#: [id number] A Interval History: PREHEMMER PER CYNTHIA LOMBARDI'S NOTE "large amount of [...] with fever and tachycardia and lethargy to [facility] on 10/22/24. HC POA is partner = Edward and brother Deshawn Recently admitted from 09/13 to 10/12 at [facility] for new onset atrial fibrillation complicated [...] recent infected hematoma which was I&D at [facility] and treated with antibiotics from 08/14-08/24 in which she went under cardiac arrest which was thought to be due to the right thigh and anterior hip abscess - which was drained and she left with wound vac. Returned on 08/26 for expanding hematoma to the right thigh requiring 2 units of pRBC, and transferred to [facility] for IR emobolization of thigh hematoma, but a decision was made not to perform any intervention and she was discharged to SNF on 09/06. 10/22-10/31 [facility] ICU. Patient did not require vasopressors. October 28 transferred to [facility]. October 31 decided to transfer patient to [facility] for vascular assessment of fistula [...] History of cardiopulmonary arrest August 2024 at [facility] Contact Information Primary Emergency Contact: BonillaGeraDeshawn Mobile Relation: Brother Law Librarian needed? No Secondary Emergency Contact: Edward Ruggiero Mobile Relation: Significant Other Preferred language: Polish Law Librarian needed? No Candy Denis DO Division of Hospitalist Medicine [facility] [1] Past Medical History: Diagnosis [...] Somers III, MD, 500 mg at 11/04/24 08 melatonin tablet 5 mg, 5 mg, Oral, [...] Javier Somers III, MD, 17 g at 11/04/24820 [Held [...] Grossly Intact VASCULAR: left upper extremity with [place] drain in place, old blood draining, old [...] Admit Date: 10/22/2024 PCP: Roxie Spain Room#: [id number] A Interval History: On room air. Hypertensive. No fever. Finishing up dialysis interventional radiology technologist at bedside In her bed currently [...] with fever and tachycardia and lethargy to [facility] on 10/22/24. HC POA is partner = Edward and brother Deshawn Recently admitted from 09/13 to 10/12 at [facility] for new onset atrial fibrillation complicated [...] recent infected hematoma which was I&D at [facility] and treated with antibiotics from 08/14-08/24 in which she went under cardiac arrest which was thought to be due to the right thigh and anterior hip abscess - which was drained and she left with wound vac. Returned on 08/26 for expanding hematoma to the right thigh requiring 2 units of pRBC, and transferred to [facility] for IR emobolization of thigh hematoma, but a decision was made not to perform any intervention and she was discharged to SNF on 09/06. 10/22-10/31 [facility] ICU. Patient did not require vasopressors. October 28 transferred to [facility]. October 31 decided to transfer patient to [facility] for vascular assessment of fistula [...] arrest August 2024 at [facility] Contact Information Primary Emergency Contact: Deshawn Crystal Mobile Relation: Brother Law Librarian needed? No Secondary Emergency Contact: Edward Ruggiero Mobile Relation: Significant Other Preferred language: Polish Law Librarian needed? No Candy Denis DO Division of Hospitalist Medicine [facility] [1] Past Medical History: Diagnosis [...] % solution, , Topical, Daily, Francisco Javier Somres III, MD, Given at 11/03/24 1323 collagenase [...] History: Medical History[1] LABS: CBC: Recent Labs 0731611/02/24 0241 11/02/24 1155 11/02/24 1655 WBC 20.4* [...] with fever and tachycardia and lethargy to [facility] on 10/22/24. HC POA is partner = Edward and brother Deshawn Recently admitted from 09/13 to 10/12 at [facility] for new onset atrial fibrillation complicated [...] recent infected hematoma which was I&D at [facility] and treated with antibiotics from 08/14-08/24 in which she went under cardiac arrest which was thought to be due to the right thigh and anterior hip abscess - which was drained and she left with wound vac. Returned on 08/26 for expanding hematoma to the right thigh requiring 2 units of pRBC, and transferred to [facility] for IR emobolization of thigh hematoma, but a decision was made not to perform any intervention and she was discharged to SNF on 09/06. 10/22-10/31 [facility] ICU. Patient did not require vasopressors. October 28 transferred to [facility]. October 31 decided to transfer patient to [facility] for vascular assessment of fistula [...] arrest August 2024 at [facility] Contact Information Primary Emergency Contact: Deshawn Crystal Mobile Relation: Brother Law Librarian needed? No Secondary Emergency Contact: Edward Ruggiero Mobile Relation: Significant Other Preferred language: Polish Law Librarian needed? No Candy Denis DO Division of Hospitalist Medicine [facility] [1] Past Medical History: Diagnosis [...] Somers III, MD, 10 mL at 11/02/24 1457 sodium chloride 0.9% (NS) flush 5-40 mL, [...] procedure. It was also discussed with her brother/SHADY Hess. They have both elected to proceed [...] 01/25/2024 Performed by Chrissy Gilman MD at [facility] ENDOSCOPY IR CVC TUNNELED DIALYSIS CATHETER PLACEMENT 02/27/2022 IR CVC TUNNELED CATHETER PLACEMENT 02/27/2022 Candis Andrade MD [facility] SPECIAL PROCEDURES IR EMBOLIZATION 01/24/2024 IR EMBOLIZATION 01/24/2024 Jovan Glynn MD [facility] SPECIAL PROCEDURES [3] lactated Ringer's, [...] History: Medical History[1] LABS: CBC: Recent Labs 10/31/24 0526 11/01/24 0317 11/02/24 0241 WBC 17.2* 20.4* 21.9* RBC 2.91* 2.75* 2.48* HGB 8.5* 8.0* 7.4* HCT 26.6* 25.2* 22.9* MCV 91.4 91.6 92.3 RDW 16.7* 16.6* 16.3* PLT 531* 557* 530* BMP: Recent Labs 10/31/24 0526 11/01/24 0317 11/02/24 0241 NA 143 139 138 K [...] with fever and tachycardia and lethargy to [facility] on 10/22/24. HC POA is partner = Edward and brother Deshawn Recently admitted from 09/13 to 10/12 at [facility] for new onset atrial fibrillation complicated [...] recent infected hematoma which was I&D at [facility] and treated with antibiotics from 08/14-08/24 in which she went under cardiac arrest which was thought to be due to the right thigh and anterior hip abscess - which was drained and she left with wound vac. Returned on 08/26 for expanding hematoma to the right thigh requiring 2 units of pRBC, and transferred to [facility] for IR emobolization of thigh hematoma, but a decision was made not to perform any intervention and she was discharged to SNF on 09/06. 10/22-10/31 [facility] ICU. Patient did not require vasopressors. October 28 transferred to [facility]. October 31 decided to transfer patient to [facility] for vascular assessment of fistula [...] History of cardiopulmonary arrest August 2024 at [facility] Contact Information Primary Emergency Contact: Deshawn Crystal Mobile Relation: Brother Law Librarian needed? No Secondary Emergency Contact: Edward Ruggiero Mobile Relation: Significant Other Preferred language: Polish Law Librarian needed? No aCndy Denis DO Division of Hospitalist Medicine Acute [facility] [1] Past Medical History: Diagnosis Date [...] PRN, Kaylin Thomas DO, 650 mg at 10/27/24 0034 acetaminophen (Tylenol) tablet 650 mg, 650 mg, Oral, q6h PRN, Kaylin Thomas DO amLODIPine (Norvasc) tablet 5 mg, 5 mg, Oral, Daily, Ana Boyce APRN - FREIGHT ROUTER, 5 mg at 11/01/24 0810 chlorhexidine (Hibiclens) [...] g, 15 g, Oral, PRN, Kaylin Thomas DO, 15 g at 10/30/24 0451 heparin [...] mg, 10 mg, IntraVENous, q4h PRN, Ana Boyce, PARK - FREIGHT ROUTER, 10 mg at 10/31/242044 labetalol (Normodyne,Trandate) injection [...] 5 mg, 5 mg, Oral, q8h PRN, Ana Boyce APRN - FREIGHT ROUTER, 5 mg at 11/01/24 1705 polyethylene glycol (PEG) 3350 (Miralax) packet 17 g, 17 g, Oral, Daily PRN, Kaylin Thomas DO [Held by provider] sevelamer carbonate (Renvela) tablet 800 mg, 800 mg, Oral, TID WC, Kaylin Thomas, sodium chloride 0.9 % infusion, 5-250 mL/hr, IntraVENous, PRN, Kaylin Iversonttmann, DO sodium chloride 0.9 % infusion, 250 mL/hr, IntraVENous, PRN, Kaylin Iversonttmann, DO sodium chloride 0.9 % infusion, 250 mL/hr, IntraVENous, PRN, Ana Boyce, PARK - FREIGHT ROUTER sodium chloride 0.9% (NS) flush 5-40 mL, 5-40 mL, IntraVENous, 2 times per day, Kaylin Thomas, DO, 10 mL at 11/01/24 0810 sodium chloride 0.9% (NS) flush 5-40 mL, 5-40 mL, IntraVENous, PRN, Kaylin Iversonttmann, DO sodium chloride 0.9% (NS) flush 5-40 mL, 5-40 mL, IntraCATHeter, q8h, Kaylin Thomas, DO, 10 mL at 11/01/24 1351 sodium [...] transferred here last night after being at [facility] for 9 days). Please continue to record % consumed of meals in I/O Flowsheet. RD to monitor weight (confirm/monitor for Nephrology comment on pt's current EDW), labs, fluid, overall nutritional status & follow up weekly. Malnutrition Assessment: Malnutrition Status: At risk for malnutrition (Comment) (continue with ONS and liberalized diet; noted MD or FREIGHT ROUTER have been documenting Severe Malnutrition since 10/23) [...] Accumulation: No significant fluid accumulation (per chart) Automotive Specialty Technician Strength: Not Performed Nutrition Assessment: Pt with PMH including ESRD on HD, Seizures, HTN, HLD, recent admission to OSH for sudden cardiac arrest / right thigh/hip abscess s/p I&D 08/16 presented initially to [facility] from [facility] on 10/22 due to AMS; in ED pt noted to be febrile 101.3 at [facility], tachycardic, tachypneic and with elevated WBC, received IV fluid bolus, antibiotics, admitted to [facility] for further work up; Critical care consulted the following day as pt remained febrile, tachycardic and tachypneic, WBC count also continuing to increase with worsening anemia; pt has had multiple admissions 08/14 to 08/24 at [facility] for cardiac arrest, 08/26 to [...] catheter placed on discharge on 10/12; at [facility] PT/OT/LP, ID, Nephrology, and Wound Care consulted; pt was transferred out of ICU services to medical services on 10/24, noted to be receiving Meropenem and Vancomycin IV (stopped, transitioned to oral abx) for infected pressure ulcer on left buttocks, last HD 10/31; on 10/27 pt received 1 unit of blood (3rd unit pt had received there); at [facility] Palliative Care was following, speaking with pt's brother, code status changed to DNR-CCA; pt noted to need fistula placement for HD, has temp HD cath in place, transferred here yesterday for new fistula placement; here Vascular was consulted for same, recommended OR for assessment of AV fistula clot/infection 11/02. MACHINE DYER following (signed off today), diet progressed to [...] she would have last received while at [facility]. Nutrition Related Findings: pos I/O (4.3L); +BS, last BM 10/30; No edema indicated; medications include renvela; labs: SCr (2.98), BG (67) Wound Type: Pressure Injury, Unstageable (sacrum extending to L buttock) Current Nutrition Therapies: Adult diet Regular Current Oral Intake Average Meal Intake: 0%, 1-25%, 26-50%, 51-75%, 76-100% (per flowsheet) Average Supplements Intake: Unable to assess (pt just transferred to [facility] from [facility] last night) Anthropometric Measures: Height: 162.6 cm [...] bed scale) % Weight Change (Calculated): -1.2 [place] Body Weight (lbs) (Calculated): 120 lbs [place] Body Weight (Kg) (Calculated): 55 kg % [place] Body Weight (Calculated): 97.7 % BMI (kg/m2) [...] Alexus Denney RD Contact: Secure chat or *[phone] Images from the original note were not included. PHYSICAL THERAPY [facility] Re-Evaluation Name/MRN: Apoorva Gonzalez ([id number]) Evaluation Date: 11/01/2024 Date of : 1950 Admission Date: 10/22/2024 12:48 PM Age: 74 y.o. [facility] Discharge Recommendation: Residential Facility Equipment Needed: No Assessment IMPRESSION: PT re-evaluation completed d/t pt transfer [facility]. She is here for sepsis, fever, lethargy. Max A for mobility, SHOE PARTS CASER required assist for all from SNF. Will [...] Raw Score (No Stairs) : 7 [facility] Score: Sat at edge of bed Plan [...] of Care supervision is transferred to a [facility] Therapy Services Physical Therapist. Goals and/or [...] 01/25/2024 Performed by Chrissy Gilman MD at [facility] ENDOSCOPY IR CVC TUNNELED DIALYSIS CATHETER PLACEMENT 02/27/2022 IR CVC TUNNELED CATHETER PLACEMENT 02/27/2022 Candis Andrade MD [facility] SPECIAL PROCEDURES IR EMBOLIZATION 01/24/2024 IR EMBOLIZATION 01/24/2024 Jovan Glynn MD [facility] SPECIAL PROCEDURES Images from the original note were not included. Speech-Language Pathology SPEECH LANGUAGE PATHOLOGY [facility] Dysphagia Treatment Note Patient Name: Apoorva Gonzalez Evaluation Date: 11/01/2024 Date of : 1950 Admission Date: 10/22/2024 12:48 PM Age: 74 y.o. Room[facility]: [facility] A Subjective Patient alert and cooperative. Seen upright in bed. Answers all basic questions with clear vocal quality. Follows all basic commands. No visitors at bedside. Spoke with RN Lenka who cleared pt for treatment. Current Diet: [...] bites/sips Patient has achieved all acute care MACHINE DYER goals. Speech therapy to sign off at [...] Expected End: 11/07/24 Resolved: 11/01/24 Therapy Time MACHINE DYER Individual Minutes Time In: 1034 Time Out: 1044 Minutes: 10 Tameka Bernard, MACHINE DYER Rounding And Backing 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 Cosigned by EDGAR Paniagua at 11/01/2024 11:04 [...] History: Medical History[1] LABS: CBC: Recent Labs 10/30/2445410/31/24 0511/01/24316 WBC 18.2* 17.2* 20.4* RBC 2.85* 2.91* 2.75* HGB 8.3* 8.5* 8.0* HCT 26.3* 26.6* 25.2* MCV 92.3 91.4 91.6 RDW 16.6* 16.7* 16.6* PLT 502* 531* 557* BMP: Recent Labs 10/30/24 04510/31/24 0511/01/24316 NA 143 143 139 K 4.2 4.4 [...] with fever and tachycardia and lethargy to [facility] on 10/22/24. HC POA is partner = Edward and brother Deshawn Recently admitted from 09/13 to 10/12 at [facility] for new onset atrial fibrillation complicated [...] recent infected hematoma which was I&D at [facility] and treated with antibiotics from 08/14-08/24 in which she went under cardiac arrest which was thought to be due to the right thigh and anterior hip abscess - which was drained and she left with wound vac. Returned on 08/26 for expanding hematoma to the right thigh requiring 2 units of pRBC, and transferred to [facility] for IR emobolization of thigh hematoma, but a decision was made not to perform any intervention and she was discharged to SNF on 09/06. 10/22-10/31 [facility] ICU. Patient did not require vasopressors. October 28 transferred to [facility]. October 31 decided to transfer patient to [facility] for vascular assessment of fistula [...] cardiopulmonary arrest August 2024 at H [facility] Contact Information Primary Emergency Contact: Deshawn Crystal Mobile Relation: Brother Law Librarian needed? No Secondary Emergency Contact: RuggieroEdward Mobile Relation: Significant Other Preferred language: Polish Law Librarian needed? No Candy Denis DO Division of Hospitalist Medicine [facility] [1] Past Medical History: Diagnosis [...] original note were not included. PHYSICAL THERAPY [facility] Name/MRN: Apoorva Gonzalez ([id number]) Date: 10/31/2024 Chart review completed. Unable to see pt currently secondary to receiving dialysis. Noted plan to transfer pt to [facility] for vascular consult. Will follow while here for continued therapy if medically stable. Mayuri Parkinson, SHOE PARTS CASER Cosigned by Julian Lerner PT at 10/31/2024 [...] PRN, Kaylin Thomas DO, 650 mg at 10/27/24 0034 acetaminophen (Tylenol) tablet 650 mg, 650 mg, Oral, q6h PRN, Kaylin Thomas DO amLODIPine (Norvasc) tablet 5 mg, 5 mg, Oral, Daily, Ana Boyce, PARK - FREIGHT ROUTER, 5 mg at 10/31/24 0820 chlorhexidine (Hibiclens) [...] g, 15 g, Oral, PRN, Kaylin Thomas DO, 15 g at 10/30/24 0451 heparin injection 1,200-2,000 Units, 1,200-2,000 Units, IntraCATHeter, PRN, Kaylin Thomas DO, 2,100 Units at 10/26/24 1343 heparin injection 1,200-2,000 Units, 1,200-2,000 Units, IntraCATHeter, PRN, Kaylin Thomas, DO, 2,000 Units at 10/26/24 1341 heparin injection 1,200-2,000 Units, 1,200-2,000 Units, IntraCATHeter, PRN, Kaylin Thomas, DO, 2,100 Units at 10/28/24 1221 heparin injection 1,200-2,000 Units, 1,200-2,000 Units, IntraCATHeter, PRN, Kaylin Thomas, DO, 2,000 Units at 10/28/24 1221 heparin injection 5,000 Units, 5,000 Units, SubCUTAneous, 2 times per day, Kaylin Thomas DO, 5,000 Units at 10/31/24 0820 hydrALAZINE (Apresoline) injection 10 mg, 10 mg, IntraVENous, q4h PRN, Ana Boyce, SECURITY FLEX OFFICER - FREIGHT ROUTER, 10 mg at 10/30/24450 labetalol (Normodyne,Trandate) injection 10 mg, 10 mg, IntraVENous, q4h PRN, Kaylin Thomas DO, 10 mg at 10/30/242053 levETIRAcetam in sodium chloride (Keppra) IVPB 500 mg, 500 mg, IntraVENous, Daily, Kaylin Thomas DO, Stopped at 10/31/24 1033 Melatonin disintegrating tablet 5 mg, 5 mg, [...] g, 17 g, Oral, Daily PRN, Kaylin Thomas, DO [Held by provider] sevelamer carbonate (Renvela) tablet 800 mg, 800 mg, Oral, TID WC, Kaylin Thomas, DO sodium chloride 0.9 % infusion, 5-250 mL/hr, IntraVENous, PRN, Kaylin Iversonttmann, DO sodium chloride 0.9 % infusion, 250 mL/hr, IntraVENous, PRN, Kaylin Iversonttmann, DO sodium chloride 0.9 % infusion, 250 mL/hr, IntraVENous, PRN, Ana Boyce APRN - FREIGHT ROUTER sodium chloride 0.9% (NS) flush 5-40 mL, 5-40 mL, IntraVENous, 2 times per day, Kaylin Thomas, DO, 10 mL at 10/31/24 0821 sodium chloride 0.9% (NS) flush 5-40 mL, 5-40 mL, IntraVENous, PRN, Kaylin Iversonttmann, DO sodium chloride 0.9% (NS) flush 5-40 mL, 5-40 mL, IntraCATHeter, q8h, Kaylin Thomas, DO, 10 mL at 10/31/24 0526 sodium chloride 0.9% (NS) flush 5-40 mL, 5-40 mL, IntraVENous, PRN, Kaylin Iversonttevie, DO, 10 mL at 10/27/242031 sulfamethoxazole-trimethoprim (Bactrim DS) 800-160 MG per tablet 1 tablet, 1 tablet, Oral, Daily, Shamar Bearden MD, 1 tablet at 10/31/24 0820 traMADol (Ultram) tablet 50 mg, 50 mg, Oral, q8h PRN, Ana Boyce APRN - FREIGHT ROUTER Hospitalist Progress Note 10/31/2024 Subjective: Admit Date: 10/22/2024 PCP: Roxie Spain Room#: B2-258/B2-258 A BRIEF HOSPITAL COURSE: Apoorva Gonzalez is a 74 year old female who presented 10/22 from [facility] due to altered mental status. In the ED was noted to be febrile 101.3 at [facility], tachycardic, tachypneic and with elevated WBC. Received IV fluid bolus, antibiotics. Admitted to [facility] for further work up. Critical care consulted the following day as patient remained febrile, tachycardic and tachypneic. WBC count also continuing to increase with worsening anemia. Patient has had multiple admissions 08/14 to 08/24 at [facility] for cardiac arrest, 08/26 to 09/06 at for sepsis believed to be due to an infected right thigh wound and hematoma; [facility] from 09/13 - 10/12/24 due [...] unit of blood, Dr Boyd spoke with ROCKY hamletzamzam Deshawn, made patient DNR CCA, considering hospice, Vancomycin stopped 10/28/24 Patient moved out of ICU to [address] [place], [place] [address], dialysis being set up this morning, hemoglobin remains stable overnight at 9.3 10/30/24 IV Zosyn stopped, oral ATB started in the afternoon by ID, reached out to vascular they do not come to [place] willing to see patient at [facility] Interval History: 10/31/24 Discussed plan with patient's POA/brother Deshawn- instead of getting authorization for [facility] approval, going to [facility] then turning around to return to outpatient vascular appointment to evaluate fistula for potential source of infection, he is agreeable to transfer to [facility] for vascular assessment and/or removal [...] with Dr Rojas and admitting team at [facility], accepted transfer and will assess AV fistula on , covering attending Dr Yan and CM aware Adult diet Regular 24HR INTAKE/OUTPUT: Intake/Output [...] Keppra HTN HLD Debility Recent CDIFF-treated at [facility] Plan As a result of [...] to update we will proceed transfer to [facility] for vascular surgery to evaluate, [...] - TBD - Location - transfer to [facility] then pursue SNF for rehab - Pending the following - pending acceptance Toxic drug monitoring/narrow therapeutic index drug monitoring : # Drug name : # Route administered : # Method of monitoring : Extended Emergency Contact Information Primary Emergency Contact: BonillaDeshawn Mobile Relation: Brother Law Librarian needed? No Secondary Emergency Contact: Edward Ruggiero Mobile Relation: Significant Other Preferred language: Polish Law Librarian needed? No Ana Boyce APRN - FREIGHT ROUTER Division of Hospitalist Medicine [employer] [facility] [1] Past Medical History: Diagnosis Date Chronic kidney disease (CKD) Hemodialysis patient ([facility]) ([facility]) Wednesday, , Wednesday History of blood [...] not included. Speech-Language Pathology SPEECH LANGUAGE PATHOLOGY [facility] Dysphagia Treatment Note Patient Name: Apoorva Gonzalez Evaluation Date: 10/31/2024 Date of : 1950 Admission Date: 10/22/2024 12:48 PM Age: 74 y.o. Room/Bed: [facility] A Subjective Patient alert and cooperative. Seen [...] Plan: Continue dysphagia POC. Possible transfer to [facility] if need surgery for infected [...] Start: 10/24/24 Expected End: 11/07/24 Therapy Time MACHINE DYER Individual Minutes Time In: 922 Time Out: 938 Minutes: 16 NIRU Quiroz Images from the original note were not included. [facility] Wound Care Progress Note Apoorva Gonzalez AGE: 74 y.o. GENDER: female : 1950 Subjective: HISTORY of PRESENT ILLNESS HPI Apoorva Gonzalez is a 74 y.o. female who presents for a wound care follow up. HPI: Apoorva is a 74 y.o. female who presented to the emergency department on 10/22/24 with chief complaint of AMS. Pt is resident of [facility]. Report one day of increasing weakness and AMS. She receives dialysis 5x/week Wed-Wednesday. No missed sessions. Temp 101.3F at [facility]. Hospitalized from 08/14 - 08/24 at [facility] for cardiac arrest and sepsis and again from 08/26 to 09/06 at for sepsis believed to be due to an infected right thigh wound and hematoma. Hospitalized again at [facility] from 09/13 - 10/12 due [...] no cyanosis Sacrum extending to left buttock: [id number] cm. Wound bed with a mix of [...] to follow Recommend to follow up at [facility] Outpatient wound care center after hospital discharge. Any questions or concerns please secure chat "[facility] wound/ostomy". Thank you for the consult! I [...] 01/25/2024 Performed by Chrissy Gilman MD at [facility] ENDOSCOPY IR CVC TUNNELED DIALYSIS CATHETER PLACEMENT 02/27/2022 IR CVC TUNNELED CATHETER PLACEMENT 02/27/2022 Candis Andrade MD [facility] SPECIAL PROCEDURES IR EMBOLIZATION 01/24/2024 IR EMBOLIZATION 01/24/2024 Jovan Glynn MD [facility] SPECIAL PROCEDURES [3] Family History [...] as needed for constipation. Spiritual Care Note [facility] Palliative Care Patient Name:Apoorva Gonzalez Chief Complaint: Chief Complaint Patient presents with Altered Mental Status Pt came from group home. Squad was called for weakness and altered [...] and when patient is able. Debriefed: with staff nurse team. Gretchen Adames 10/30/24 Consult acknowledged. Concern for infected LUE AVG. The patient will need transferred to [facility] for any vascular surgical evaluation/procedure as we have no operative time available to us at [facility]. Ana Boyce APRN-FREIGHT ROUTER contacted. Raffy Rojas MD Vascular Surgery Hospitalist Progress Note 10/30/2024 Subjective: Admit Date: 10/22/2024 PCP: Roxie Spain Room#: B2-511/B2-643 A BRIEF HOSPITAL COURSE: Apoorva Gonzalez is a 74 year old female who presented 10/22 from SNF due to altered mental status. In the ED was noted to be febrile 101.3 at SNF, tachycardic, tachypneic and with elevated WBC. Received IV fluid bolus, antibiotics. Admitted to [facility] for further work up. Critical care consulted the following day as patient remained febrile, tachycardic and tachypneic. WBC count also continuing to increase with worsening anemia. Patient has had multiple admissions 08/14 to 08/24 at [facility] for cardiac arrest, 08/26 to 09/06 at [...] 10/28/24 Patient moved out of ICU to [address] [place], [place] [address], dialysis being set up this morning, hemoglobin [...] Keppra HTN HLD Debility Recent CDIFF-treated at [facility] Plan As a result of [...] following, recommending SNF, will go back to [facility], palliative consult will be placed when she [...] Emergency Contact: Gera Crystalence Mobile Relation: Brother Law Librarian needed? No Secondary Emergency Contact: RuggieroEdward Mobile Relation: Significant Other Preferred language: Polish Law Librarian needed? No Ana Boyce APRN - FREIGHT ROUTER Division of Hospitalist Medicine [facility] [1] Past Medical History: Diagnosis Date Chronic kidney disease (CKD) Hemodialysis patient ([facility]/HCC) (HCC) Wednesday, , Wednesday History of blood transfusion 02/27/2022 Hypertension Seizure ([facility]) Developed seizure-like activity on 02/24 during [...] sodium chloride 0.9%, sodium chloride 0.9% [4] [facility] - Infectious Diseases Attending Progress Note Subjective: [...] Lab Results Component Value Date/Time NA 143 10/30/2024454 K 4.2 10/30/2024454 CL 110 (H) 10/30/2024 045 CO2 26 10/30/2024454 BUN 21 10/30/2024454 CREATININE 3.52 (H) 10/30/2024454 GLUCOSE 79 (L) 10/30/2024454 CALCIUM 7.7 (L) 10/30/2024454 PROT 5.6 (L) 10/24/2024 0649 BILITOT 0.5 10/24/2024 0649 ALKPHOS 150 10/24/2024 0649 AST 28 10/24/2024 0649 ALT <6 10/24/2024 0649 PROCAL 68.03 (H) 10/05/2024 1419 PROCAL 19.25 (H) 09/15/2024 0308 PROCAL 76.25 (H) 09/14/2024 0541 Lab Results Component Value Date/Time WBC 18.2 (H) 10/30/2024454 HGB 8.3 (L) 10/30/2024 0455 HGB 9.1 10/05/2024 1419 HCT 26.3 (L) 10/30/2024 0455 PLT 502 (H) 10/30/2024 0455 LYMPHOPCT 4 (L) 10/30/2024 0455 MONOPCT 3 (L) 10/30/2024 0455 BASOPCT 1 10/28/2024 0515 NEUTROABS 16.9 (H) [...] excised. Encephalopathy- worse today( compared to previous [facility] admission) Leukocytosis. ESRD, on HD. Recent h/o [...] not included. Speech-Language Pathology SPEECH LANGUAGE PATHOLOGY [facility] Dysphagia Treatment Note Patient Name: Apoorva Gonzalez Evaluation Date: 10/30/2024 Date of : 1950 Admission Date: 10/22/2024 12:48 PM Age: 74 y.o. Room/Bed: [facility] A Subjective Patient alert and [...] upgrade. Plan & Recommendations Plan: Continue acute MACHINE DYER therapy per initial plan of care and [...] Start: 10/24/24 Expected End: 11/07/24 Therapy Time MACHINE DYER Individual Minutes Time In: 939 Time Out: 55 Minutes: 15 Christine Barnes CCC-MACHINE DYER Images from the original note were not [...] ( ) Alternate is s/o Edward Ruggiero [phone]) -HCPOA documented to have been filled out at facility recently-->copy was emailed to me today from [facility]. Faxed to medical records to be scanned into chart. -Goals of care include-->1)CONTINUE ATBX 2)RETURN TO FACILITY 3)PALLIATIVE REFERRAL PATIENT NOT REDY FOR HOSPICE AT THIS TIME. Sepsis -Recent admission at [facility] for sepsis, Cdiff. -Had central line replaced and noted that IV ATBX course will be finished out PO at facility. -Monitor for s/s repeat infection, continued decline, patient is hospice appropriate, however -Monitor. Acute encephalopathy -Improved since last seen. -Monitor. Dysphagia -Patient now cleared for regular diet after being seen by MACHINE DYER -Monitor. Debility Wounds -ongoing, 2/2 chronically ill and long hospitalizations recently. -This is her 5th admission over the last year. -Noted WCB at baseline at facility. -PT/OT-->recommending SNF -Planning return to facility at [place] -Monitor. Hx Seizures -Keppra 500 mg IVPB continued. -Monitor. Hx ESRD -Dialysis patient, nephrology managing. -Noted that tunneled like previously inserted last admission ([facility]-->10-13) -Avoid nephrotoxic medications. -Renally dose medications Hx CP arrest --->while at [facility]. Palliative Care Encounter -Code Status: DNR-CCA, DNI [...] Family/Caregiver Advanced Directives: Health Care Power of Segmental Paving Supervisor, DNR Functional Assessment: PPS 50% mainly sit/lie; can't do any work/extensive disease; considerable assistance; normal or reduced intake; full LOC or confusion Prognosis: depends upon goals of care Spiritual Assessment: No spiritual distress identified Bereavement and Grief: To Be Determined ROS: See palliative care ROS/ESAS below; Detail ROS unable to be obtained due to patient's mental status Avon Symptom Assessment Score Avon Score Pain Score (if non-verbal, add .FLACC [...] Gonzalez has been seen in consultation by [facility] Palliative Care during their admission to [facility]. They currently have no uncontrolled symptoms and have established goals of care and we have signed off of their case. The patient has established follow-up with palliative care team and PCP. PARK Prajapati CNP Images from the original note were not included. PHYSICAL THERAPY [facility] Treatment Note Name/MRN: Apoorva Gonzalez ([id number]) Date of : 1950 Age: 74 y.o. Room/Bed: B2-258/B2-258 A Visit #: 2 out of 5 Discharge Recommendation: Residential Facility Equipment Needed: No Assessment Pt continues [...] Minutes: 10 Minutes (ther act x1) Julian Lrener PT Hospitalist Progress Note 10/29/2024 Subjective: Admit Date: 10/22/2024 PCP: Roxie Spain Room#: B2-258/B2-258 A BRIEF HOSPITAL COURSE: Apoorva Gonzalez is a 74 year old female who presented 10/22 from SNF due to altered mental status. In the ED was noted to be febrile 101.3 at SNF, tachycardic, tachypneic and with elevated WBC. Received IV fluid bolus, antibiotics. Admitted to [facility] for further work up. Critical care consulted the following day as patient remained febrile, tachycardic and tachypneic. WBC count also continuing to increase with worsening anemia. Patient has had multiple admissions 08/14 to 08/24 at [facility] for cardiac arrest, 08/26 to 09/06 at [...] unit of blood, Dr Boyd spoke with [facility] brother Deshawn, made patient DNR CCA, considering hospice, Vancomycin stopped 10/28/24 Patient moved out of ICU to [address] [place], [place] [address], dialysis being set up this morning, hemoglobin [...] Keppra HTN HLD Debility Recent CDIFF-treated at [facility] Plan As a result of [...] Emergency Contact: Gera Crystalence Mobile Relation: Brother Law Librarian needed? No Secondary Emergency Contact: Edward Ruggiero Mobile Relation: Significant Other Preferred language: Polish Law Librarian needed? No Ana Boyce, PARK - FREIGHT ROUTER Division of Hospitalist Medicine [facility] [1] Past Medical History: Diagnosis Date Chronic kidney disease (CKD) Hemodialysis patient (CMS/HCC) (HCC) Wednesday, , Wednesday History of blood transfusion 02/27/2022 Hypertension Seizure ([facility]) Developed seizure-like activity on 02/24 during [...] year old female who presented 10/22 from [facility] due to altered mental status. In the ED was noted to be febrile 101.3 at SNF, tachycardic, tachypneic and with elevated WBC. Received IV fluid bolus, antibiotics. Admitted to [facility] for further work up. Critical care consulted the following day as patient remained febrile, tachycardic and tachypneic. WBC count also continuing to increase with worsening anemia. Patient has had multiple admissions 08/14 to 08/24 at [facility] for cardiac arrest, 08/26 to 09/06 at [...] unit of blood, Dr Boyd spoke with OA brother Deshawn, made patient DNR CCA, considering hospice, Vancomycin stopped Interval History: 10/28/24 Patient moved out of ICU to [address] [place], [place] [address], dialysis being set up this morning, hemoglobin [...] Keppra HTN HLD Debility Recent CDIFF-treated at [facility] Plan As a result of [...] Emergency Contact: Deshawn Crystal Mobile Relation: Brother Law Librarian needed? No Secondary Emergency Contact: Edward Ruggiero Mobile Relation: Significant Other Preferred language: Polish Law Librarian needed? No Ana Boyce APRN - FREIGHT ROUTER Division of Hospitalist Medicine Acute care [facility] [1] Past Medical History: Diagnosis Date [...] from the original note were not included. [facility] - Infectious Diseases Attending Progress Note Patient [...] Oral 109 16 98 % -- -- 10/26/242000 143/75 -- -- 109 -- -- -- [...] (L) 10/27/2024 0339 MONOPCT 3 (L) 10/27/2024 033 BASOPCT 2 10/27/2024 0339 NEUTROABS 16.9 (H) [...] fistula Encephalopathy- worse today( compared to previous [facility] admission) Leukocytosis. ESRD, on HD. Recent h/o [...] year old female who presented 10/22 from [facility] due to altered mental status. In the ED was noted to be febrile 101.3 at [facility], tachycardic, tachypneic and with elevated WBC. Received IV fluid bolus, antibiotics. Admitted to [facility] for further work up. Critical care consulted the following day as patient remained febrile, tachycardic and tachypneic. WBC count also continuing to increase with worsening anemia. Patient has had multiple admissions 08/14 to 08/24 at [facility] for cardiac arrest, 08/26 to 09/06 at [...] Th, Sat HD. Patient currently resides at [facility] and will return on discharge [...] Keppra HTN HLD Debility Recent CDIFF-treated at [facility] Plan As a result of [...] Type and Screen completed - ESRD T, Th, S-had dialysis yesterday - Nephrology following - [...] Emergency Contact: Deshawn Crystal Mobile Relation: Brother Law Librarian needed? No Secondary Emergency Contact: Edward Ruggiero Mobile Relation: Significant Other Preferred language: Polish Law Librarian needed? No Ana Boyce APRN - FREIGHT ROUTER Division of Hospitalist Medicine [employer] [facility] [employer] [1] Past Medical History: [...] not included. Speech-Language Pathology SPEECH LANGUAGE PATHOLOGY [facility] Dysphagia Treatment Note Patient Name: Apoorva Gonzalez Evaluation Date: 10/27/2024 Date of : 1950 Admission Date: 10/22/2024 12:48 PM Age: 74 y.o. Room/Bed: / A Subjective Patient alert, confused and agitated. Seen upright in bed. Answers some basic questions with clear vocal quality. Follows some basic commands. Visitors at bedside - CABLE SPLICER HELPER. Spoke with RNAna, who cleared pt for [...] Diet tolerance & trials Pt agitated with MACHINE DYER this am, stating "I don't need you, don't touch my food". Pt was observed to be self-feeding at MACHINE DYER's arrival. MACHINE DYER provided explanation for purpose of therapy & goals of care - to upgrade pt's diet as appropriate. Pt stating "You can watch me eat but that's it". Pt was observed to tolerated 3 bites of scrambled eggs & ice cream with functional mastication, achieving full bolus clearance & no overt s/s of aspiration/penetration. MACHINE DYER offered pt regular PO trials (dipti vasquez) with pt stating Don't touch anything, I don't need this, leave me be". MACHINE DYER adhered to pt's wishes at this time to decrease agitation, RN notified. Continue with current diet at this time - allow pt to self-feed if mentation continues to improve. Plan & Recommendations Plan: Continue acute MACHINE DYER therapy per initial plan of care and [...] Start: 10/24/24 Expected End: 11/07/24 Therapy Time MACHINE DYER Individual Minutes Time In: 904 Time Out: 914 Minutes: 10 Christine Barnes CCC-MACHINE DYER Images from the original note were not [...] ( ) Alternate is s/o Edward Ruggiero [phone]) - patient seen this am, she was [...] - discussed with bedside RN, primary team SECURITY FLEX OFFICER-TAMIR Boyce - will continue to have ongoing goals of care conversations with patient, family Severe sepsis - likely secondary to infected left buttock pressure ulcer due to enterobacter cloacae complex , possible infected left arm fistula with E cloacae - ID on case, patient on meropenem Wound - sacral extending to left buttock - wound care team on case Dysphagia - MACHINE DYER on case, patient on soft and bite sized diet Seizure Disorder - patient on keppra ESRD - per nephrology notes from 10/26 patient stable on dialysis - next HD planned for Wednesday Hx of CP Arrest - 08/2024 while at [facility] Palliative Care Encounter -Code Status: Full Code [...] is a 74 y.o. female admitted to [facility] on 10/22 from facility with mentation alteration, [...] Family/Caregiver Advanced Directives: Health Care Power of Segmental Paving Supervisor, DNR Functional Assessment: PPS 50% mainly sit/lie; can't do any work/extensive disease; considerable assistance; normal or reduced intake; full LOC or confusion Prognosis: depends upon goals of care Spiritual Assessment: No spiritual distress identified Bereavement and Grief: To Be Determined PDMP/OARRS Reviewed: Yes-reviewed Social history: Marital status: Children: one child, . Living status: group home Work history: n/a status: No Congregation erma: None ROS: See palliative care ROS/ESAS below; Detail ROS unable to be obtained due to patient's mental status Avon Symptom Assessment Score Avon Score Pain Score (if non-verbal, add .FLACC [...] She had a recent long admission at [facility] for about a month, COVID-19, [...] run its natural course. Opal Boyd MD [facility] - Infectious Diseases Attending Progress [...] -- -- 107 -- -- -- -- 07/24/25 0002 151/85 37.1 C (98.8 F) Oral 100 16 -- -- -- 10/25/246 139/95 -- -- 103 -- -- -- -- 10/25/242100 (!) 172/89 -- -- 104 -- -- -- -- 10/25/242048 (!) 186/99 -- -- [...] 25 10/26/2024 0657 BUN 24 (H) 10/26/2024 06 CREATININE 4.91 (H) 10/26/2024 06 GLUCOSE 88 10/26/2024 06 CALCIUM 7.8 (L) 10/26/2024 0657 PROT 5.6 [...] excised. Encephalopathy- worse today( compared to previous [facility] admission) Leukocytosis. ESRD, on HD. Recent h/o [...] Dysphagia - Soft and Bite Sized per MACHINE DYER recommendation. No additional renal restrictions needed for [...] unable to state how she was eating SHOE PARTS CASER) Weight Loss: No significant weight loss Body Fat Loss: Unable to assess (Limited d/t pt not cooperative) Muscle Mass Loss: Unable to assess (Limited cooperation from the patient; decreased level of alertness this afternoon) Fluid Accumulation: No significant fluid accumulation Automotive Specialty Technician Strength: Measurable reduction in homemaking rehabilitation consultant strength (per global sales director) Nutrition Assessment: Pt's diet advanced to Soft and Bite Sized 10/25 per MACHINE DYER recommendation s/p evaluation 10/25 and 10/26. Pt [...] On: Kcal/kg Weight Used for Energy Requirements: [place] Weight for Energy Calculation (kg): 55 kg Total Energy Requirements (kcals/day): 8851-2179 (27-32 kcal/kg IBW) Weight Used for Protein Requirements: [place] Weight in Kg Used for Protein Requirements: [...] bed scale) % Weight Change (Calculated): -1.2 [place] Body Weight (lbs) (Calculated): 120 lbs [place] Body Weight (Kg) (Calculated): 55 kg % [place] Body Weight (Calculated): 97.7 % BMI (kg/m2) [...] soon to determine Kelly Castro RD Contact: *[phone] or via Secure Chat Images from the original note were not included. Hospitalist Progress Note 10/26/2024 Subjective: Admit Date: 10/22/2024 PCP: Roxie Spain Room#: 222-02/222-02 A BRIEF HOSPITAL COURSE: Apoorva Gonzalez is a 74 year old female who presented 10/22 from [facility] due to altered mental status. In the ED was noted to be febrile 101.3 at [facility], tachycardic, tachypneic and with elevated WBC. Received IV fluid bolus, antibiotics. Admitted to [facility] for further work up. Critical care consulted the following day as patient remained febrile, tachycardic and tachypneic. WBC count also continuing to increase with worsening anemia. Patient has had multiple admissions 08/14 to 08/24 at [facility] for cardiac arrest, 08/26 to 09/06 at [...] Th, Sat HD. [facility] Interval [...] Sever sepsis HAGMA Encephalopathy ESRD on HD-T, Th, S Acute on chronic normocytic anemia Left buttocks pressure ulcer stage 3 Severe malnutrition dysphagia Stable chronic problems affecting care, new non-acute diagnoses: Seizure disorder- on Keppra HTN HLD Debility Recent CDIFF-treated at [facility] Plan As a result of [...] transfusing blood for now - ESRD T, Th, S-in session this morning - Nephrology following [...] Emergency Contact: Deshawn Crystal Mobile Relation: Brother Law Librarian needed? No Secondary Emergency Contact: Edward Ruggiero Mobile Relation: Significant Other Preferred language: Polish Law Librarian needed? No Ana Boyce APRN - FREIGHT ROUTER Division of Hospitalist Medicine [employer] [facility] [1] Past Medical History: Diagnosis Date [...] sodium chloride 0.9%, sodium chloride 0.9% [4] [facility] PROGRESS NOTE Subjective Interval [...] Lab Units 10/22/24 1451 COLOR U Light [place]* CLARITY U Clear PH U pH 8.5* [...] 250 UNIT/GM ointment, , Topical, PRN, Kaylin Luttmann, DO collagenase 250 UNIT/GM ointment, , Topical, [...] day, Kaylin Thomas DO, 5,000 Units at 10/25/24 2049 labetalol (Normodyne,Trandate) injection 10 mg, 10 mg, [...] mL, 5-40 mL, IntraVENous, PRN, Kaylin Thomas, sodium chloride 0.9% (NS) flush 5-40 mL, 5-40 mL, IntraCATHeter, q8h, Kaylin Thomas DO, 10 mL at 10/26/24 0222 sodium chloride 0.9% (NS) flush 5-40 mL, 5-40 mL, IntraVENous, PRN, Kaylin Thomas, DO vancomycin (Vancocin) intermittent dosing (placeholder), , [...] []PD [] CrCl ml/min (if ROLANDO, no PREHEMMER) Infectious Diagnosis: sepsis (target level = mg/L) [...] 9:34 AM Won Gutiérrez PharmD (available on [employer]) Images from the original note were not included. Speech-Language Pathology SPEECH LANGUAGE PATHOLOGY [facility] Dysphagia Treatment Note Patient Name: Apoorva Gonzalez Evaluation Date: 10/26/2024 Date of : 1950 Admission Date: 10/22/2024 12:48 PM Age: 74 y.o. Room/Bed: / A Subjective Patient alert, confused and some agitiation. Seen upright in bed, after repositioning. Answers few basic questions with clear vocal quality. Follows few basic commands. No visitors at bedside. Spoke with CYNTHIA Perez who cleared pt for treatment. Current Diet: [...] Start: 10/24/24 Expected End: 11/07/24 Therapy Time MACHINE DYER Individual Minutes Time In: 0850 Time Out: 0912 Minutes: 22 NIRU Quiroz Images from the original note were not included. [facility] - Infectious Diseases Attending Progress Note Subjective: [...] admissions; hospitalized from 08/14 - 08/24 at [facility] for cardiac arrest and sepsis and again from 08/26 to 09/06 at for sepsis believed to be due to an infected right thigh wound and hematoma; again at [facility] from 09/13 - 10/12/24 due [...] -- -- 118 22 -- -- 10/24/24 2113 (!) 176/91 37.1 C (98.8 F) Oral [...] disoriented. Motor: Weakness present. Labs: Recent Labs 10/23/245110/24/24 0649 10/25/24 0349 NA 134* 138 143 K 3.5 3.5 3.5 CL 95* 101 103 CO2 27 22* 23 BUN 31* 40* 15 CREATININE 5.78* 7.06* 3.49* GLUCOSE 72* 62* 69* CALCIUM 7.9* 7.6* 8.2* PROT 6.0* 5.6* -- BILITOT 0.7 0.5 -- ALKPHOS 162* 150 -- AST 34* 28 -- ALT <6 <6 -- Recent Labs 10/23/245110/24/24 0649 10/24/24 1217 10/25/24 0349 WBC 35.0* 31.2* -- 29.9* HGB 6.9* 5.8* 7.5* 6.8* HCT 21.6* 17.9* 23.3* 22.1* PLT 355 316 -- 317 LYMPHOPCT 1* 3* -- 4* MONOPCT 2* 3* -- 4* BASOPCT 0 1 -- 1 Micro: No results for input(s): "COVID19" in the last 72 hours. 10/24/2024 0958 10/24/2024 1005 Aerobic and Anaerobic Culture with Stain [[id number]] Drainage from Arm, Left In process Component Value No component results 10/24/2024 0958 10/24/2024 1439 Culture, Aerobic Bacteria with Gram Stain [[id number]] Drainage from Arm, Left Preliminary result Component Value Culture Culture in progress P Gram Stain Result Many Polymorphonuclear leukocytes per low power field P No organisms seen P 10/24/2024 0958 10/24/2024 1005 Anaerobic culture [[id number]] Drainage from Arm, Left In process Component Value No component results 10/22/2024 2305 10/24/2024 0401 Blood culture Site #1 - Suspected Infection [[id number]] Blood, Venous Preliminary result Component Value Blood Culture No growth at 24 hours P 10/22/2024 1705 10/23/2024 2101 Blood culture Site #2 - Suspected Infection [[id number]] Blood, Venous Preliminary result Component Value Blood Culture No growth at 24 hours P 10/22/2024 1602 10/22/2024 2123 Respiratory Pathogens Panel by PCR [[id number]] Swab from Nasopharynx Final result Component Value [...] 1458 Aerobic and Anaerobic Culture with Stain [[id number]] (Abnormal) Other from Buttock, Left In process Component Value No component results 10/22/2024 1434 10/24/2024 1028 Culture, Aerobic Bacteria with Gram Stain [[id number]] (Abnormal) Other from Buttock, Left Preliminary result Component Value Culture Few skin camilo present P Many Enterobacter cloacae complex Abnormal P Gram Stain Result Rare Polymorphonuclear leukocytes per low power field Abnormal P Many Gram negative bacilli Abnormal P 10/22/2024 1434 10/22/2024 1458 Anaerobic culture [[id number]] Other from Buttock, Left In process Component Value No component results 10/22/2024 1411 10/23/2024 2101 Blood culture Site #1 - Suspected Infection [[id number]] Blood, Venous Preliminary result Component Value Blood Culture No growth at 24 hours P 10/09/2024 1541 10/14/2024 0950 Aerobic and Anaerobic Culture with Stain [[id number]] Drainage from Fistula Final result Component Value No component results 10/09/2024 1541 10/12/2024 0920 Culture, Aerobic Bacteria with Gram Stain [[id number]] Drainage from Fistula Final result Component Value Culture No growth at 72 hours Gram Stain Result Moderate Polymorphonuclear leukocytes per low power field No organisms seen 10/09/2024 1541 10/14/2024 0950 Anaerobic culture [[id number]] Drainage from Fistula Final result Component Value Culture No growth at 5 days 10/05/2024 1601 10/05/2024 1713 Respiratory culture and Stain [[id number]] (Abnormal) Sputum from Bronchus Final result Component [...] 10/05/2024 1747 Respiratory Pathogens Panel by PCR [[id number]] Swab from Nasopharynx Final result Component Value [...] sites ok Radiography/Echo/Other: IR nontunneled catheter placement [[id number]] Collected: 10/23/24 111 Order Status: Completed Updated: 10/23/241117 Narrative: [facility] 1950 [id number] Exam Date/Time: 10/23/2024 10:26 Procedure: IR NONTUNNELED [...] 11:17 AM EDT XR chest 1 view [[id number]] Collected: 10/22/24 154 Order Status: Completed Updated: [...] EDT IR CVC Tunneled Dialysis Cath Exchange [[id number]] Collected: 10/12/241343 Order Status: Completed Updated: 10/12/241346 Narrative: Patient Name: APOOR[facility] 1950 [id number] Exam Date/Time: 10/12/2024 11:51 Procedure: IR CVC [...] 1:46 PM EDT IR nontunneled catheter placement [[id number]] Collected: 10/09/24 1549 Order Status: Completed Updated: 10/09/24 8727 Narrative: Patient Name: APOORVA GONZALEZ : 1950 [facility]#: [id number] Exam Date/Time: 10/09/2024 14:08 Procedure: IR NONTUNNELED [...] PM EDT CT head wo IV contrast [[id number]] Collected: 10/06/24313 Order Status: Completed Updated: 10/06/24326 Narrative: Patient Name: APOOR[facility] 1950 [id number] Exam Date/Time: 10/05/2024 23:23 Procedure: CT HEAD WO IV CONTRAST Ordering Provider: CARABALLO GEORGE Reason For Exam: AMS EXAMINATION: CT HEAD WO IV CONTRAST HISTORY: AMS - - - - - [id number] - - - - change in mental [...] orbits and extracranial soft tissues are unremarkable. Kettle Chipper (topogram) images: No additional findings. Impression: No CT evidence of an acute intracranial abnormality. Report Dictated on Electronically Signed By: Kev Goldstein MD Electronically Signed Date/Time: 10/06/2024 3:[address] chest abdomen pelvis with contrast [[id number]] Collected: 10/06/24 0851 Order Status: Completed Updated: 10/06/24903 Narrative: Patient Name: APOORVA GONZALEZ : 1950 [facility]#: [id number] Exam Date/Time: 10/05/2024 23:23 Procedure: CT CHEST [...] 9:03 AM EDT XR chest 1 view [[id number]] Collected: 10/05/242039 Order Status: Completed Updated: 10/05/242042 Narrative: Patient Name: APO[facility] 1950 [id number] Exam Date/Time: 10/05/2024 20:36 Procedure: XR CHEST [...] 8:41 PM EDT XR chest 1 view [[id number]] Collected: 10/05/24 1449 Order Status: Completed Updated: 10/05/24 145 Narrative: Patient Name: APOORVA GONZALEZ : 1950 [...] original note were not included. PHYSICAL THERAPY [facility] Treatment Note Name/MRN: Apoorva Gonzalez ([id number]) Date of : 1950 Age: 74 y.o. Room/Bed: 222-02/222-02 A Visit #: 1 out of 5 visits Discharge Recommendation: Residential Facility Equipment Needed: No Prior Level of [...] - dietary following Dysphagia - seen by MACHINE DYER and now on bite sized soft diet [...] Emergency Contact: Deshawn Crystal Mobile Relation: Brother Law Librarian needed? No Secondary Emergency Contact: Edward Ruggiero Mobile Relation: Significant Other Preferred language: Polish Law Librarian needed? No PARK Kelly CNP Division of Hospitalist Medicine [facility] [1] Past Medical History: Diagnosis Date Chronic kidney disease (CKD) Hemodialysis patient (CMS/HCC) (HCC) Wednesday, , Wednesday History of blood transfusion 02/27/2022 Hypertension Seizure ([facility]) Developed seizure-like activity on 02/24 during [...] from the original note were not included. [facility] Wound Care Progress Note Apoorva Gonzalez AGE: 74 y.o. GENDER: female : 1950 Subjective: HISTORY of PRESENT ILLNESS HPI Apoorva Gonzalez is a 74 y.o. female who presents for a wound care follow up. HPI: Apoorva is a 74 y.o. female who presented to the emergency department on 10/22/24 with chief complaint of AMS. Pt is resident of [facility]. Report one day of increasing weakness and AMS. She receives dialysis 5x/week Mon-Wednesday. No missed sessions. Temp 101.3F at [facility]. Hospitalized from 08/14 - 08/24 at [facility] for cardiac arrest and sepsis and again from 08/26 to 09/06 at for sepsis believed to be due to an infected right thigh wound and hematoma. Hospitalized again at [facility] from 09/13 - 10/12 due [...] no cyanosis Sacrum extending to left buttock: 2.9o3hZGP cm. Wound bed with a mix of [...] to follow Recommend to follow up at [facility] Outpatient wound care center after hospital discharge. Any questions or concerns please secure chat "[facility] wound/ostomy". Thank you for the consult! I [...] 01/25/2024 Performed by Chrissy Gilman MD at [facility] ENDOSCOPY IR CVC TUNNELED DIALYSIS CATHETER PLACEMENT 02/27/2022 IR CVC TUNNELED CATHETER PLACEMENT 02/27/2022 Candis Andrade MD [facility] SPECIAL PROCEDURES IR EMBOLIZATION 01/24/2024 IR EMBOLIZATION 01/24/2024 Jovan Glynn MD [facility] SPECIAL PROCEDURES [3] Family History [...] not included. Speech-Language Pathology SPEECH LANGUAGE PATHOLOGY [facility] Dysphagia Treatment Note Patient Name: Apoorva Gonzalez Evaluation Date: 10/25/2024 Date of : 1950 Admission Date: 10/22/2024 12:48 PM Age: 74 y.o. Room/Bed: / A Subjective Patient alert and oriented to [...] Start: 10/24/24 Expected End: 11/07/24 Therapy Time MACHINE DYER Individual Minutes Time In: 0836 Time Out: [...] []PD [] CrCl ml/min (if ROLANDO, no PREHEMMER) Infectious Diagnosis: sepsis (target level = mg/L) Antimicrobials: Patient recently received an antibiotic (last 12 hours) Date/Time Action Medication Dose Rate 10/24/242116 Given mupirocin (Bactroban) 2 % ointment 10/24/242110 New Bag meropenem (Merrem) 1,000 mg in sodium chloride 0.9 % 100 mL IVPB 1,000 mg 33.3 mL/hr Assessment/Plan: Intermittent vancomycin dosing (Pulse Dosing). Lab Results Component Value Date VANCORANDOM 19.10/24/2024 Give Vancomycin 500 mg once based on patient age, weight, renal status and infectious diagnosis (10 mg/kg). Will adjust dose/frequency if needed according to level. Follow renal status closely. Orders placed. Thank you for this consult. Please page/call with questions. Date: 10/24/24 Time: 11:21 PM Joann Floyd PharmD (available on [employer]) [facility] PROGRESS NOTE Subjective Interval [...] Lab Units 10/22/24 1451 COLOR U Light [place]* CLARITY U Clear PH U pH 8.5* [...] % infusion, 5-250 mL/hr, IntraVENous, PRN, Kaylin Iversonttmann, DO sodium chloride 0.9 % infusion, 250 mL/hr, IntraVENous, PRN, Kaylin Thomas, DO sodium chloride 0.9% (NS) flush 5-40 mL, 5-40 mL, IntraVENous, 2 times per day, Kaylin Thomas DO, 10 mL at 10/24/24 0818 sodium chloride 0.9% (NS) flush 5-40 mL, 5-40 mL, IntraVENous, PRN, Kaylin Iversonttmann, DO sodium chloride 0.9% (NS) flush 5-40 mL, 5-40 mL, IntraCATHeter, q8h, Kaylin Thomas DO, 20 mL at 10/24/24 0656 sodium chloride 0.9% (NS) flush 5-40 mL, 5-40 mL, IntraVENous, PRN, Kaylin Thomas, DO vancomycin (Vancocin) intermittent dosing (placeholder), , Other, RX Placeholder, Kaylin Thomas DO Images from the original note were not included. [facility] - Infectious Diseases Attending Progress Note Subjective: [...] admissions; hospitalized from 08/14 - 08/24 at [facility] for cardiac arrest and sepsis and again from 08/26 to 09/06 at for sepsis believed to be due to an infected right thigh wound and hematoma; again at [facility] from 09/13 - 10/12/24 due [...] 1005 Aerobic and Anaerobic Culture with Stain [[id number]] Drainage from Arm, Left In process Component Value No component results 10/24/2024 0958 10/24/2024 1439 Culture, Aerobic Bacteria with Gram Stain [[id number]] Drainage from Arm, Left Preliminary result Component Value Culture Culture in progress P Gram Stain Result Many Polymorphonuclear leukocytes per low power field P No organisms seen P 10/24/2024 0958 10/24/2024 1005 Anaerobic culture [[id number]] Drainage from Arm, Left In process Component Value No component results 10/22/2024 2305 10/24/2024 0401 Blood culture Site #1 - Suspected Infection [[id number]] Blood, Venous Preliminary result Component Value Blood Culture No growth at 24 hours P 10/22/2024 1705 10/23/2024 2101 Blood culture Site #2 - Suspected Infection [[id number]] Blood, Venous Preliminary result Component Value Blood Culture No growth at 24 hours P 10/22/2024 1602 10/22/2024 2123 Respiratory Pathogens Panel by PCR [[id number]] Swab from Nasopharynx Final result Component Value [...] 1458 Aerobic and Anaerobic Culture with Stain [[id number]] (Abnormal) Other from Buttock, Left In process Component Value No component results 10/22/2024 1434 10/24/2024 1028 Culture, Aerobic Bacteria with Gram Stain [[id number]] (Abnormal) Other from Buttock, Left Preliminary result Component Value Culture Few skin camilo present P Many Enterobacter cloacae complex Abnormal P Gram Stain Result Rare Polymorphonuclear leukocytes per low power field Abnormal P Many Gram negative bacilli Abnormal P 10/22/2024 1434 10/22/2024 1458 Anaerobic culture [[id number]] Other from Buttock, Left In process Component Value No component results 10/22/2024 1411 10/23/2024 2101 Blood culture Site #1 - Suspected Infection [[id number]] Blood, Venous Preliminary result Component Value Blood Culture No growth at 24 hours P 10/09/2024 1541 10/14/2024 0950 Aerobic and Anaerobic Culture with Stain [[id number]] Drainage from Fistula Final result Component Value No component results 10/09/2024 1541 10/12/2024 0920 Culture, Aerobic Bacteria with Gram Stain [[id number]] Drainage from Fistula Final result Component Value Culture No growth at 72 hours Gram Stain Result Moderate Polymorphonuclear leukocytes per low power field No organisms seen 10/09/2024 1541 10/14/2024 0950 Anaerobic culture [[id number]] Drainage from Fistula Final result Component Value Culture No growth at 5 days 10/05/2024 1601 10/05/2024 1713 Respiratory culture and Stain [[id number]] (Abnormal) Sputum from Bronchus Final result Component [...] 10/05/2024 1747 Respiratory Pathogens Panel by PCR [[id number]] Swab from Nasopharynx Final result Component Value [...] HD cath Radiography/Echo/Other: IR nontunneled catheter placement [[id number]] Collected: 10/23/24 1115 Order Status: Completed Updated: 10/23/241117 Narrative: Patient Name: APOORVA GONZALEZ : 1950 [facility]#: [id number] Exam Date/Time: 10/23/2024 10:26 Procedure: IR NONTUNNELED [...] 11:17 AM EDT XR chest 1 view [[id number]] Collected: 10/22/24 154 Order Status: Completed Updated: [...] EDT IR CVC Tunneled Dialysis Cath Exchange [[id number]] Collected: 10/12/24 134 Order Status: Completed Updated: [...] 1:46 PM EDT IR nontunneled catheter placement [[id number]] Collected: 10/09/24 1549 Order Status: Completed Updated: [...] PM EDT CT head wo IV contrast [[id number]] Collected: 10/06/24 0314 Order Status: Completed Updated: 10/06/24326 Narrative: Patient Name: APOORVA GONZALEZ : 1950 Exam Date/Time: 10/05/2024 23:23 Procedure: CT HEAD WO IV CONTRAST Ordering Provider: CARABALLO GEORGE Reason For Exam: AMS EXAMINATION: CT HEAD WO IV CONTRAST HISTORY: AMS - - - - - [id number] - - - - change in mental [...] orbits and extracranial soft tissues are unremarkable. Kettle Chipper (topogram) images: No additional findings. Impression: No CT evidence of an acute intracranial abnormality. Report Dictated on Electronically Signed By: Kev Goldstein MD Electronically Signed Date/Time: 10/06/2024 3:[address] chest abdomen pelvis with contrast [[id number]] Collected: 10/06/24 0851 Order Status: Completed Updated: [...] 9:03 AM EDT XR chest 1 view [[id number]] Collected: 10/05/242039 Order Status: Completed Updated: 10/05/242042 [...] 8:41 PM EDT XR chest 1 view [[id number]] Collected: 10/05/24 1449 Order Status: Completed Updated: 10/05/24 1451 Narrative: Patient Name: APOORVA GONZALEZ : 1950 [facility]#: [id number] Exam Date/Time: 10/05/2024 14:30 Procedure: XR CHEST [...] 2:50 PM EDT Antimicrobials, Start/End Dates: Cefepime Vanco 10/22- Silvino 10/23- Impression: Severe sepsis. [...] original note were not included. PHYSICAL THERAPY [facility] Initial Evaluation Name/MRN: Apoorva Gonzalez ([id number]) Evaluation Date: 10/24/2024 Date of : 1950 Admission Date: 10/22/2024 12:48 PM Age: 74 y.o. Room/Bed: / A Discharge Recommendation: Residential Facility Equipment Needed: No Assessment IMPRESSION: Pt admitted 10/23 with sepsis, altered mental status. She has had multiple recent hospital admissions, was at [facility] 09/13-10/12 for Afib and COVID-19, PNA. Prior to that was at [facility] with R thigh hematoma and I&D, went into cardiac arrest. Prior to these hospitalizations was IND but since has been at SNF with plan to transition to [facility]. I spoke with PT at SNF [...] Raw Score (No Stairs) : 7 [facility] Score: Sat at edge of bed Plan [...] of Care supervision is transferred to a [facility] Therapy Services Physical Therapist. Goals and/or treatment plan was established in collaboration with patient/family/other representatives. [1] Past Medical History: Diagnosis Date Chronic kidney disease (CKD) Hemodialysis patient (CMS/HCC) (HCC) Wednesday, , Wednesday History of blood transfusion 02/27/2022 Hypertension Seizure ([facility]) Developed seizure-like activity on 02/24 during hospital admission [2] Past Surgical History: Procedure Laterality Date AV FISTULA PLACEMENT Left 08/07/2022 COLONOSCOPY N/A 01/25/2024 Performed by Chrissy Gilman MD at [facility] ENDOSCOPY IR CVC TUNNELED DIALYSIS CATHETER PLACEMENT 02/27/2022 IR CVC TUNNELED CATHETER PLACEMENT 02/27/2022 Candis Andrade MD [facility] SPECIAL PROCEDURES IR EMBOLIZATION 01/24/2024 IR EMBOLIZATION 01/24/2024 Jovan Glynn MD [facility] SPECIAL PROCEDURES Speech-Language Pathology SPEECH LANGUAGE PATHOLOGY [facility] Bedside Swallow Evaluation Patient Name: Apoorva Gonzalez Evaluation Date: 10/24/2024 Date of : 1950 Admission Date: 10/22/2024 12:48 PM Age: 74 y.o. Room/Bed: /- A IMPRESSION: No s/s oropharyngeal dysphagia. No [...] required. Pt would benefit from skilled acute MACHINE DYER services to repeat bedside swallow evaluation. Frequency: [...] Retrospective chart review revealed a history of MACHINE DYER services as follows: speech therapy services from [...] complaint of AMS. Pt is resident of [facility]. Collateral hx provided by [facility] nurse and EMS. Report one day of increasing weakness and AMS. She receives dialysis 5x/week Wed-Wednesday. No missed sessions. Temp 101.3F at [facility]. Hospitalized from 08/14 - 08/24 at [facility] for cardiac arrest and sepsis and again from 08/26 to 09/06 at for sepsis believed to be due to an infected right thigh wound and hematoma Hospitalized again at [facility] from 09/13 - 10/12 due [...] Start: 10/24/24 Expected End: 11/07/24 Therapy Time MACHINE DYER Individual Minutes Time In: 815 Time Out: 834 Minutes: 19 Levi Louis MACHINE DYER Graduate Clinician [1] Past Medical History: Diagnosis Date Chronic kidney disease (CKD) Hemodialysis patient (CMS/HCC) (HCC) Wednesday, , Wednesday History of blood transfusion 02/27/2022 Hypertension Seizure (HCC) Developed seizure-like activity on 02/24 during hospital admission [2] Past Surgical History: Procedure Laterality Date AV FISTULA PLACEMENT Left 08/07/2022 COLONOSCOPY N/A 01/25/2024 Performed by Chrissy Gilman MD at [facility] ENDOSCOPY IR CVC TUNNELED DIALYSIS CATHETER PLACEMENT 02/27/2022 IR CVC TUNNELED CATHETER PLACEMENT 02/27/2022 Candis Andrade MD [facility] SPECIAL PROCEDURES IR EMBOLIZATION 01/24/2024 IR EMBOLIZATION 01/24/2024 Jovan Glynn MD [facility] SPECIAL PROCEDURES Cosigned by NIRU [...] Received IV fluid bolus, antibiotics. Admitted to [facility] for further work up. Critical care [...] 18 (10/24/24 0502) SpO2 96 % (10/24/24 050) Weight 48.3 kg (106 lb 7.7 oz) [...] (Active) Date First Assessed/Time First Assessed: 09/26/24 170 Present on Original Admission: (c) Primary Wound Type: Pressure Injury Location: (c) Sacrum Pressure Injury Stage: Unstageable Constitutional: General Appearance [x]WDWN []Obese []Cachectic []Thin []Ill Eyes: Inspection of Pupils/Irises Pupils round and react: [x]Yes []No Sclera: []Icteric [x]Non-Icteric Inspection of Conjunctiva/Lids Conjunctiva: []Injected [x]Non-Injected Lids: [x]Intact []Lesion Present ENT/Mouth: External Inspection of ears/nose [x] Normal [] Scar/Lesion/Mass Inspection of teeth/lips/gums Dentition: [][place] Teeth []Dentures Lips/Gums: [x]Intact []Lesion Present Mucosa: [x][place] []Moist []Dry Neck: External Appearance Overall Appearance: [...] 15.5* ABGs: No results for input(s): "PHART", "OGH5BXB", "PO2ART", "LCD0GFQ", "SO2ART", "I1TRMXTW" in the last 72 hours. Lactic Acid: [...] given brown drainage. Would consider transfer to [facility] for evaluation by vascular surgery -PREHEMMER per nephrology -Transfuse to maintain hemoglobin >7 -Hypoglycemia protocol GI Prophylaxis: none indicated DVT Prophylaxis: Heparin subcutaneous Disposition: Transfer to [facility] Critical Care Time: 38 minutes Total [...] 12:17 PM Leticia Carty RPh (available on [employer]) Images from the original note were not included. PHYSICAL THERAPY [facility] Name/MRN: Apoorva Gonzalez ([id number]) Date: 10/23/2024 Therapy eval and treat orders [...] stay. Julian Lerner PT Spiritual Care Note [facility] Palliative Care Patient Name:Apoorva Gonzalez Chief Complaint: Chief Complaint Patient presents with Altered Mental Status Pt came from group home. Squad was called for weakness and altered [...] and when patient is able. Debriefed: with staff nurse team. Gretchen Adames 10/23/24 Nutrition Assessment Type and Reason for Visit: Initial (ICU admit) Nutrition Recommendations/Plan: NPO and off unit for tunneled line placement. Recommend ADAT as deemed safe and appropriate by MACHINE DYER Should alternative nutrition route align with goals [...] and seizure. With recent lengthy admit to [facility] 09/13-10/12/24 with confusion, generalized pain and SOB. Founds to be COVID+ on arrival. +Blood cultures for Enterobacter cloacae, antibiotics changes to vanc/cefepime and ID recommended 3 days of remdesivir. Course complicated by lethargy and AMS following iHD on 09/14 and PREHEMMER later called with unresponsive episode, and hypoxia with hypoglycemia. Required levophed and transferred to ICU and started on CRRT. +Decadron and required 2u PRBC for Hgb of 5.9. CRRT weaned to iHD on 09/16; S/P Dobhoff placement on 09/16 due to encephalopathy, however on 09/17 MACHINE DYER recommended Easy to Chew diet and dobhoff removed. Transferred from ICU to [facility] on 09/17. Palliative care consulted and supporting, as well as nephrology for ESRD. Unfortunately, she was transferred back to the ICU on 10/05/2024 due to concerns for recurrent sepsis after getting a fever and tachycardia with a lactic acidosis during dialysis. Patient [facility] 11-11-2024 Miscellaneous Notes Care Management Progress Note Short Medical why still here: Anticipate Medical readiness for discharge today. Requested update from attending. Also updated attending that patient's Auth is good through today. Planned Discharge Disposition: Residential Facility-[facility], Dialysis approved 11/06/24 and Auth approved 11/08-11/11/24 Barriers/Today [...] this time. Auth obtained to return to [facility] until 11/11. MD updated. RN reports continued bleeding, low BS and pain this am. Will follow. Per [facility] auth yesterday and that they started a new auth today. Received notification that [facility] has auth for her to return. Noted hgb drop and vascular sx at bedside today to examine her LUE incision, no need for intervention at this time. Facility asked when auth is good until, awaiting response. Updated notes sent to [facility] via [facility] per [facility] request. Await review and response regarding ability to accept. [facility] notified. [facility] messaged to send updates to [facility] with request to start auth to return. Care Management Progress Note Short Medical why still here: s/p graft hematoma sx yesterday for bleeding issues. Vascular signed off this am, hgb stable. Planned Discharge Disposition: Residential Facility, needs auth to return to [facility], PT asked to see today for [...] as well as with her power of trademark attorney and brother Deshawn. They elected to [...] Rojas MD Vascular Surgery Date: 11/05/2024 Location: [facility] OR Name: Apoorva Gonzalez, : 1950, Diagnosis Pre-op Diagnosis * Bleeding [R58] Post-op Diagnosis * Bleeding [R58] Procedures Evacuation of left upper extremity hematoma and control of bleeding Surgeons * Raffy Rojas - Primary Procedure Summary Anesthesia: * No anesthesia type entered * ASA: III Estimated Blood Loss: 35 mL Drains: * None in log * Staff: District Or District Office Director: Kori Khan RN Relief Scrub: Mak Adler [...] Planned for Dialysis today. Planned Discharge Disposition: Residential Facility- [facility], heather, Auth Pending. Updates attached to [facility] for facility to review. Requested update [...] closed with interrupted 2-0 nylon suture. A [place] drain as well as a strip of [...] Rojas MD Vascular Surgery Date: 11/02/2024 Location: [facility] OR Name: Apoorva Gonzalez, : 1950, Diagnosis Pre-op Diagnosis * Sepsis, due to unspecified organism, unspecified whether acute organ dysfunction present (HCC) [A41.9] Post-op Diagnosis * Sepsis, due to unspecified organism, unspecified whether acute organ dysfunction present (HCC) [A41.9] Procedures EXCISION OF LEFT UPPER EXTREMITY INFECTED GRAFT 30955 - NC EXCISION INFECTED GRAFT EXTREMITY Surgeons * Raffy Rojas - Primary Procedure Summary Anesthesia: General ASA: III Estimated Blood Loss: 350 mL Drains: Open Drain Left (Active) Specimens ID Source Type Tests Collected By Collected At Frozen? Priority Lab ID A Arm, Left Tissue AEROBIC AND ANAEROBIC CULTURE WITH STAIN Raffy Rojas MD 11/02/24 0913 [id number], [id number] Description: left upper extremity AV fistula B Arm, Left Tissue AEROBIC AND ANAEROBIC CULTURE WITH STAIN Raffy Rojas MD 11/02/24 1017 [id number], [id number] Description: LEFT ARM DISTAL AV FISTULA GRAFT Staff: District Or District Office Director: Nicole Hyatt RN Relief District Or District Office Director: Alicia Foley RN Scrub Person: Tc Leonard [...] Short Medical why still here: Patient from [facility] for vascular surgery to assess AV fistula. Patient is scheduled for surgery on Wednesday. Planned Discharge Disposition: Residential Facility- return to [facility] once medically stable Barriers/Today we still Wait: Clinical stability Length of Stay (Days): 10 GMLOS: 4.9 Care Management Progress Note Short Medical why still here: -Pt will transfer to [facility] for vascular surgery to evaluate if new AV fistula will be needed. -Now on PO ATB -Monitoring labs -Has temporary HD cath and non-tunneled L IJ Planned Discharge Disposition: Pt is from [facility] and will return when medically ready. Pt does need auth before she can return. Pt gets HD at facility 5 days/week at facility. Barriers/Today we still Wait: Administering IV medications, Clinical stability, Symptomatic control, Vascular recommendations and Facility pre-cert seaport planning manager to follow and assist as needed. Length of Stay (Days): 9 GMLOS: 4.9 Sent updated notes to return back to [facility] via [facility] per TCC request. Await review and response regarding ability to accept. TCC notified. Care Management Progress Note Short Medical why still here: Treating sepsis with IV ATB, ID following. BP's elevated-utilizing prn BP meds. Needs fistula placement for HD. Receives HD T//WED. Has temporary HD cath in place. Will need probable transfer to [facility] for new fistula placement. Left central line to be pulled. Pt will transition to PO ATB at discharge. Planned Discharge Disposition: Residential Facility Back to [facility]-new auth will be needed when pt is closer to medical stability once she has fistula placement. Tasked [employer] SUPERVISOR to send updated clinicals to facility. Did speak with her brother Deshawn and confirmed pt will return to [facility]. Barriers/Today we still Wait: Administering IV medications, Clinical stability, Symptomatic control, new fistula Per 10/29 IM note, "if pt does not improve within 2-3 days, brother (POA) may consider hospice". However, hospice will not be pursued at this time. seaport planning manager to follow and assist as needed. Length of Stay (Days): 8 GMLOS: 4.9 Family Communication Number Called: [phone] Name of Designated Family Cut Roll 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: Deshawn Crystal/ Brother I spoke with the individual listed above Family Cut Roll 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 Updated on the Following: Changed Code staus to DNRCCA , please see my progress note from today for details Care Management Progress Note Short Medical why still here: receiving hemodialysis on Wednesday, , Wednesday schedule. Has non-tunneled central line. On IV keppra and meropenem. Receiving PRBC today. Planned Discharge Disposition: Residential Facility Barriers/Today we still Wait: Clinical stability, Administering IV medications, Symptomatic control, Diagnostic workup Requested orders for PT&OT eval for auth for return to [facility]. Length of Stay (Days): 5 GMLOS: 4.9 Referral placed to return back [facility] per TCC request. Await review and response regarding ability to accept. TCC notified. ICU Transfer Checklist Transfer Med Reconciliation (resume home meds if able, convert to PO if able) Complete Antibiotics (name, indication, duration, convert to PO if able) Yes, addressed in today's progress note Steroid (indication, duration, convert to PO if able) None Anticipated Emet Medications (ICU initiated) or Dose Changes and [...] within 24 hours of ICU transfer, page #[phone] for clarifications. Patient was transferred out of ICU to hospitalist service. Care Management Progress Note Short Medical why still here: Re-admitted 10/22 with sepsis, AMS and buttock wound. Consults to Nephro, Palliative Care, Wound Care and PT/OT. IV Merrem 1gm Q12. Non-tunneled left internal jugular placed. AV fistula felt to be occluded. Chart review shows that patient recently discharged from [facility] to [facility]. Task sent to [facility] to send referral for possible return. PT recommending SNF. Will continue to follow for ongoing needs and improvement in mentation. Planned Discharge Disposition: Residential Facility- return to [facility]? Pending ability to accept back Barriers/Today we still Wait: Clinical stability, Symptomatic control Length of Stay (Days): 2 GMLOS: 4.9 Family Communication Number Called: [phone] Name of Designated Family Cut Roll 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: Deshawn Crystal Relationship to patient: Brother Outcome: There was no answer when the number listed above was called and I left a HIPPA compliant message at the number listed above Family Cut Roll 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 Updated on the Following: -Planned to give non-urgent medical update and re-introduce palliative care team. -No answer. Message left with callback number. -Await callback. Signed, Lilliana Rae APRN, CNP, [facility] Palliative Care/Hospice [facility] [phone] Family Communication Number Called: n/a Name of Designated Family Cut Roll 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: Deshawn Crystal Relationship to patient: Brother Outcome: I spoke with the individual listed above Family Cut Roll 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 Updated on the Following: -Received callback from hamletDeshawn wyman. -Introduced the palliative care service to the [...] yesterday. -He is on the way from [facility] (2 hours) -Discussion around code status. DNR on file, however remains full code at this time. -Questions answered, concerns addressed, emotional support provided. -Return tomorrow. Signed, Lilliana Rae APRN, CNP, [facility] Palliative Care/Hospice [facility] [phone] 30 Day Readmission. Hospital Readmission Questionnaire not completed due to patient readmitted from skilled or rehabilitation facility. documented in this encounter [facility] 11-01-2024 Consult note Associated Order (s): IP [...] 2022) (additional history below) who presents to [facility] ED with a chief complaint of transferred from [facility] for management of left AV fistula clot/infection. [...] Deshawn it was decided to transfer to [facility] for vascular assessment and possible [...] 01/25/2024 Performed by Chrissy Gilman MD at [facility] ENDOSCOPY IR CVC TUNNELED DIALYSIS CATHETER PLACEMENT 02/27/2022 IR CVC TUNNELED CATHETER PLACEMENT 02/27/2022 Candis Andrade MD [facility] SPECIAL PROCEDURES IR EMBOLIZATION 01/24/2024 IR EMBOLIZATION 01/24/2024 Jovan Glynn MD [facility] SPECIAL PROCEDURES [3] [4] PRN [...] with Altered Mental Status Pt came from group home. Squad was called for weakness and altered mental status. Pt is not diabetic. Gcs 14 due to confusion a&ox2. Pt bgl was 99. Pt fistula is in left arm . History of Present Illness Recent course is as follows per recent documentation: Hospitalized at [facility] 08/14/2024 with sudden cardiac arrest thought to be due to complications from sepsis due to a right thigh and anterior hip abscess. She underwent I&D in the OR and was treated with a 7-day course of IV Zosyn, and was discharged to a snf facility on 08/24/2024 with a wound VAC. She re-presented to [facility] on 08/26/2024 for increased pain of her right thigh, found to have an expanding hematoma and required 2 units of PRBCs, she was transferred to for consideration of IR embolization but eventually it was stable and did not require this procedure. Last month was admitted to [facility] with COVID, pneumonia, a.fib. She was discharged from [facility] less than 2 weeks ago. Came over to [facility] yesterday with sepsis: high fever, low [...] dialysis purposes only by dialysis or trained hand iii cutter for CRRT. Any other access must be ordered and approved by nephrology. Line to be accessed for dialysis purposes only by dialysis or trained hand iii cutter for CRRT. Any other access must be [...] provider. Standing Status: Standing Number of Occurrences: [id number] HYPOGLYCEMIA TREATMENT: blood glucose less than 70 [...] provider. Standing Status: Standing Number of Occurrences: [id number] Full code Standing Status: Standing Number of [...] of Unknown Etiology Inpatient consult to Infectious Diseases--[facility] INFECTIOUS DISEASE; Sepsis - with complex history previous bacteremia with cardiac arrest Standing Status: Standing Number of Occurrences: 1 Consulting Group: [facility] INFECTIOUS DISEASE [[id number]] Reason for Consult?: Sepsis - with complex history previous bacteremia with cardiac arrest Level of Consultation: Consultation and Management Did you contact the telesales consultant?: No When to contact consulting provider: Tomorrow Inpatient consult to Wound Prevention Standing Status: Standing Number of Occurrences: 1 Reason for Consult:: Arnol score, Prevention Inpatient consult to Palliative Care Standing Status: Standing Number of Occurrences: 1 Consulting Group: [facility] PALLIATIVE CARE [[id number]] Reason for consult?: Assistance with clarification of goals of care Inpatient consult to Nephrology--[facility]; Dialysis Standing Status: Standing Number of Occurrences: 1 Consulting Group: [facility] [[id number]] Reason for Consult?: Dialysis Level of Consultation: Consultation and Management Did you contact the telesales consultant?: No When to contact consulting provider: [...] Oxygen. Standing Status: Standing Number of Occurrences: 01370 MACHINE DYER eval and treat Standing Status: Standing Number of Occurrences: 1 Reason for MACHINE DYER Consult?: Dysphagia (bedside swallow evaluation) MACHINE DYER eval and treat Standing Status: Standing Number of Occurrences: 1 Reason for MACHINE DYER Consult?: Dysphagia (bedside swallow evaluation) POCT glucose [...] 01/25/2024 Performed by Chrissy Gilman MD at [facility] ENDOSCOPY IR CVC TUNNELED DIALYSIS CATHETER PLACEMENT 02/27/2022 IR CVC TUNNELED CATHETER PLACEMENT 02/27/2022 Candis Andrade MD [facility] SPECIAL PROCEDURES IR EMBOLIZATION 01/24/2024 IR EMBOLIZATION 01/24/2024 Jovan Glynn MD [facility] SPECIAL PROCEDURES [3] Family History [...] ( ) Alternate is s/o Edward Ruggiero [phone]) -see subjective for details of conversation -goals of care include: 1) continue infectious workup 2)maintain full code 3)continue goals of care conversations -Palliative care saw last admission while at [facility]-->spouse has , daughter has . Noted that emergency contacts appear to be grandsons-->Mayur and Sharad (both above 18 yo), Brother-->Deshawn Crystal and s/o Edward Ruggiero. -HCPOA documented to have been filled out at facility recently-->copy was emailed to me today from [facility]. Faxed to medical records to be scanned into chart. Sepsis -Recent admission at [facility] for sepsis, Cdiff. -Wound cultures [...] discussion with brother today re: baseline function. -MACHINE DYER consulted, unable to address today 2/2 mentation continuing to be poor. -Monitor, remains NPO for now with encephalopathy. Debility Wounds -ongoing, 2/2 chronically ill and long hospitalizations recently. -This is her 5th admission over the last year. -Noted WCB at baseline at facility. -PT/OT when able. -Likely return to facility at ri pending clinical course. -Monitor. Hx Seizures -Keppra 500 mg IVPB ordered. -Monitor. Hx ESRD -Dialysis -Noted that tunneled like previously inserted last admission ([facility]-->10-13) -Nephrology consulted -Creatinine Cl 6.5 mL/min -Avoid nephrotoxic medications. -Renally dose medications -Last dialysis yesterday per brother. Hx CP arrest --->while at [facility]. Palliative Care Encounter -Code Status: Full Code [...] She had a recent long admission at [facility] for about a month, COVID-19, [...] detailed in the note above. Lilliana Rae, SECURITY FLEX OFFICER - FREIGHT ROUTER Palliative Care Assessments: Goals of care: Continue Current Management, Live Longer, extend life as much as possible, Strengthening Relationships, and Support for Family/Caregiver Advanced Directives: Health Care Power of Segmental Paving Supervisor, DNR Functional Assessment: PPS 50% mainly sit/lie; can't do any work/extensive disease; considerable assistance; normal or reduced intake; full LOC or confusion Prognosis: depends upon goals of care Spiritual Assessment: No spiritual distress identified Bereavement and Grief: To Be Determined PDMP/OARRS Reviewed: Yes-reviewed Social history: Marital status: Children: one child, . Living status: group home Work history: n/a status: No Congregation erma: None ROS: See palliative care ROS/ESAS below; Detail ROS unable to be obtained due to patient's mental status Avon Symptom Assessment Score Avon Score Pain Score (if non-verbal, add .FLACC [...] time Transition Note Initiated: yes Lilliana Rae, SECURITY FLEX OFFICER - FREIGHT ROUTER [1] Past Medical History: Diagnosis Date Chronic kidney disease (CKD) Hemodialysis patient ([facility]) ([facility]) Wednesday, , Wednesday History of blood transfusion 02/27/2022 Hypertension Seizure ([facility]) Developed seizure-like activity on 02/24 during hospital admission [2] Past Surgical History: Procedure Laterality Date AV FISTULA PLACEMENT Left 08/07/2022 COLONOSCOPY N/A 01/25/2024 Performed by Chrissy Gilman MD at [facility] ENDOSCOPY IR CVC TUNNELED DIALYSIS CATHETER PLACEMENT 02/27/2022 IR CVC TUNNELED CATHETER PLACEMENT 02/27/2022 Candis Andrade MD [facility] SPECIAL PROCEDURES IR EMBOLIZATION 01/24/2024 IR EMBOLIZATION 01/24/2024 Jovan Glynn MD [facility] SPECIAL PROCEDURES [3] Family History [...] year old female who presented 10/22 from [facility] due to altered mental status. In the ED was noted to be febrile, tachycardic, tachypneic and with elevated WBC. Received IV fluid bolus, antibiotics. Admitted to [facility] for further work up. This morning [...] Violence: Not At Risk (08/31/2024) Received from [facility] Humiliation, Afraid, Rape, and Kick questionnaire Fear [...] 03/02/22 10/22/24 Yes Evan Joshua APRN - FREIGHT ROUTER B complex-vitamin C-folic acid (Nephro-Coleen) 0.8 MG [...] 10 days. 10/12/24 10/22/24 Yes John Mayes, DO levETIRAcetam (Keppra) 500 MG tablet Take 1 tablet (500 mg) by mouth daily. 03/02/22 10/22/24 Yes Evan Joshua APRN - TAMIR meclizine (Antivert) 25 MG tablet Take 1 [...] Normal [] Scar/Lesion/Mass Inspection of teeth/lips/gums Dentition: [][place] Teeth []Dentures Lips/Gums: [x]Intact []Lesion Present Mucosa: [][place] []Moist []Dry Neck: External Appearance Overall Appearance: [...] 15.5* ABGs: No results for input(s): "PHART", "WCS0IIQ", "PO2ART", "ZOM9ZCU", "SO2ART", "Q9MOFVLM" in the last 72 hours. Lactic Acid: [...] organism, unspecified whether acute organ dysfunction present ([facility]) Assessment/Plan: Severe sepsis ESRD on HD TTS [...] Date Chronic kidney disease (CKD) Hemodialysis patient ([facility]/HCC) ([facility]) Wednesday, , Wednesday History of blood transfusion 02/27/2022 Hypertension Seizure ([facility]) Developed seizure-like activity on 02/24 during hospital admission [2] Past Surgical History: Procedure Laterality Date AV FISTULA PLACEMENT Left 08/07/2022 COLONOSCOPY N/A 01/25/2024 Performed by Chrissy Gilman MD at [facility] ENDOSCOPY IR CVC TUNNELED DIALYSIS CATHETER PLACEMENT 02/27/2022 IR CVC TUNNELED CATHETER PLACEMENT 02/27/2022 Candis Andrade MD [facility] SPECIAL PROCEDURES IR EMBOLIZATION 01/24/2024 IR EMBOLIZATION 01/24/2024 Jovan Glynn MD [facility] SPECIAL PROCEDURES [3] Family History Problem Relation Name Age of Onset Dementia Mother Stroke Father Prostate cancer Brother 69 Breast cancer Cousin 32 Stomach cancer Mother's Sister 70 [4] No Known Allergies Associated Order(s): IP CONSULT TO INFECTIOUS DISEASES Images from the original note were not included. [facility] - Infectious Diseases Attending Consult Note Reason for Consult: Sepsis History of Present Illness: 74 y/o female was admitted on 10/22/24 from [facility] due to fever of 101.3 F increased [...] admissions; hospitalized from 08/14 - 08/24 at [facility] for cardiac arrest and sepsis and again from 08/26 to 09/06 at for sepsis believed to be due to an infected right thigh wound and hematoma; again at [facility] from 09/13 - 10/12/24 due [...] Violence: Not At Risk (08/31/2024) Received from [facility] Humiliation, Afraid, Rape, and Kick questionnaire Fear [...] Blood culture Site #1 - Suspected Infection [[id number]] Blood, Venous Preliminary result Component Value Blood Culture Blood culture incubation started P 10/22/2024 1705 10/22/2024 2201 Blood culture Site #2 - Suspected Infection [[id number]] Blood, Venous Preliminary result Component Value Blood Culture Blood culture incubation started P 10/22/2024 1602 10/22/2024 2123 Respiratory Pathogens Panel by PCR [[id number]] Swab from Nasopharynx Final result Component Value [...] 1458 Aerobic and Anaerobic Culture with Stain [[id number]] (Abnormal) Other from Buttock, Left In process Component Value No component results 10/22/2024 1434 10/22/2024 2148 Culture, Aerobic Bacteria with Gram Stain [[id number]] (Abnormal) Other from Buttock, Left Preliminary result Component Value Culture Culture in progress P Gram Stain Result Rare Polymorphonuclear leukocytes per low power field Abnormal P Many Gram negative bacilli Abnormal P 10/22/2024 1434 10/22/2024 1458 Anaerobic culture [[id number]] Other from Buttock, Left In process Component Value No component results 10/22/2024 1411 10/22/2024 2201 Blood culture Site #1 - Suspected Infection [[id number]] Blood, Venous Preliminary result Component Value Blood Culture Blood culture incubation started P Lines: Tunneled HD cath on 10/12/24 Radiography/Echo/Other: Procedure Component Value Units Date/Time XR chest 1 view [[id number]] Collected: 10/22/24 1545 Order Status: Completed Updated: 10/22/24 1547 Narrative: Patient Name: APOORVA GONZALEZ : 1950 [...] EDT IR CVC Tunneled Dialysis Cath Exchange [[id number]] Collected: 10/12/24 134 Order Status: Completed Updated: 10/12/241346 Narrative: Patient Name: APOORVA GONZALEZ : 1950 Exam Date/Time: 10/12/2024 11:51 Procedure: IR CVC TUNNELED DIALYSIS CATH EXCHANGE Ordering Provider: CASTANEDA RUPESH Reason For Exam: ESRD CLINICAL HISTORY: Renal failure. PROCEDURE: Fluoroscopic and ultrasound-guided left tunneled dialysis catheter placement. Physicians: Dr. Sheu. MEDICATIONS: Local lidocaine EBL: Minimal. Specimen sent: [...] Chronic kidney disease (CKD) Hemodialysis patient (CMS/HCC) ([facility]) Wednesday, , Wednesday History of blood transfusion 02/27/2022 Hypertension Seizure ([facility]) Developed seizure-like activity on 02/24 during hospital admission [2] Past Surgical History: Procedure Laterality Date AV FISTULA PLACEMENT Left 08/07/2022 COLONOSCOPY N/A 01/25/2024 Performed by Chrissy Gilman MD at [facility] ENDOSCOPY IR CVC TUNNELED DIALYSIS CATHETER PLACEMENT 02/27/2022 IR CVC TUNNELED CATHETER PLACEMENT 02/27/2022 Candis Andrade MD [facility] SPECIAL PROCEDURES IR EMBOLIZATION 01/24/2024 IR EMBOLIZATION 01/24/2024 Jovan Glynn MD [facility] SPECIAL PROCEDURES [3] Current Facility-Administered [...] from the original note were not included. [facility] Wound Care CONSULT Note Apoorva Gonzalez AGE: 74 y.o. GENDER: female : 1950 Subjective: HISTORY of PRESENT ILLNESS HPI Apoorva Gonzalez is a 74 y.o. female who presents for a wound consult. HPI: Apoorva is a 74 y.o. female who presented to the emergency department on 10/22/24 with chief complaint of AMS. Pt is resident of [facility]. Report one day of increasing weakness and AMS. She receives dialysis 5x/week Mon-Wednesday. No missed sessions. Temp 101.3F at [facility]. Hospitalized from 08/14 - 08/24 at [facility] for cardiac arrest and sepsis and again from 08/26 to 09/06 at for sepsis believed to be due to an infected right thigh wound and hematoma. Hospitalized again at [facility] from 09/13 - 10/12 due [...] no cyanosis Sacrum extending to left buttock: 2.7n4rNYH cm. Wound bed with a mix of [...] to follow Recommend to follow up at [facility] Outpatient wound care center after hospital discharge. Any questions or concerns please secure chat "[facility] wound/ostomy". Thank you for the consult! I [...] 01/25/2024 Performed by Chrissy Gilman MD at [facility] ENDOSCOPY IR CVC TUNNELED DIALYSIS CATHETER PLACEMENT 02/27/2022 IR CVC TUNNELED CATHETER PLACEMENT 02/27/2022 Candis Andrade MD [facility] SPECIAL PROCEDURES IR EMBOLIZATION 01/24/2024 IR EMBOLIZATION 01/24/2024 Jovan Glynn MD [facility] SPECIAL PROCEDURES [3] Family History [...] creatinine, and vancomycin levels interfaced automatically to [employer] and data has been analyzed and interpreted. [...] via Secure Chat documented in this encounter [facility] 10-31-2024 Hospital Discharge instructions Jessica La, RN - 10/31/2024 2:42 PM EDT Images from the original note were not included. Continuity of Care Form Patient Name: Apoorva Gonzalez : 1950 Admit date: 10/22/2024 Discharge date: 11/11/24 Code Status Order: DNR-CCA Advance Directives: Y Admitting Physician: Loni Zambrano MD PCP: Roxie Spain Discharging Nurse: Discharging Hospital Unit/Room#: B2-258/B2-258 A Discharging Unit Phone Number: [phone] Emergency Contact: Extended Emergency Contact Information Primary Emergency Contact: Deshawn Crystal Mobile Relation: Brother Law Librarian needed? No Secondary Emergency Contact: RuggieroEdward Mobile Relation: Significant Other Preferred language: Polish Law Librarian needed? No Past Surgical History: Past Surgical History: Procedure Laterality Date AV FISTULA PLACEMENT Left 08/07/2022 COLONOSCOPY N/A 01/25/2024 Performed by Chrissy Gilman MD at [facility] ENDOSCOPY IR CVC TUNNELED DIALYSIS CATHETER PLACEMENT 02/27/2022 IR CVC TUNNELED CATHETER PLACEMENT 02/27/2022 Candis Andrade MD [facility] SPECIAL PROCEDURES IR EMBOLIZATION 01/24/2024 IR EMBOLIZATION 01/24/2024 Jovan Glynn MD [facility] SPECIAL PROCEDURES Immunization History: Immunization [...] Total assistance Toileting Total assistance Feeding Independent Paper Colorer Minimal assistance Med Delivery yes Wound Care Documentation and Therapy: Wound/Incision 09/14/24 Incision Leg Anterior;Right;Upper (Active) Number of days: 46 Wound/Incision 09/26/24 Pressure Injury Sacrum (Active) Site Assessment [place];Yellow 10/30/24 1002 Aminah-Wound Assessment Clean;Intact 10/30/24 2226 [...] Date: 10/22/24 Discharging to Facility/ Agency Name: [facility] Address: [address] [place] [address] Fax: Dialysis Facility (if applicable) Name:[facility] Address:[facility] [place] [address] Dialysis Schedule:TThSa Fax: Wire Walker/Screw Machine Tender signature: ICIAN SECTION Name: Apoorva Gonzalez Prognosis: [...] to a nursing facility directly from an [facility] or a unit of a hospital that is not operated by or licensed by [facility] under section 5119.14 or 5160-3-15.1 5 The individual requires the level of services provided by a nursing facility for the condition for which he or she was treated in the hospital and, Physician Certification: I certify the above information and transfer of Apoorva Gonzalez is necessary for the continuing treatment of the diagnosis listed and that she requires snf facility for less than 30 days. Update [...] intervention. PHYSICIAN SIGNATURE: documented in this encounter [facility] 10-22-2024 Procedure note Window Shade Ring Coverer arrived at pt room to draw cultures from tunnel dialysis line. While wearing proper ppe and using aseptic technique. Blood drawn and put into aerobic and anerobic culture bottles. Cvc was heparinized and capped, dressing changed documented in this encounter [facility] 10-22-2024 History and physical note Attending History [...] respite facility but she resides at in [facility], typically uses a wheel chair to [...] Recently admitted from 09/13 to 10/12 at [facility] for new onset atrial fibrillation complicated [...] recent infected hematoma which was I&D at [facility] and treated with antibiotics from 08/14-08/24 in which she went under cardiac arrest which was thought to be due to the right thigh and anterior hip abscess - which was drained and she left with wound vac. Returned on 08/26 for expanding hematoma to the right thigh requiring 2 units of pRBC, and transferred to [facility] for IR emobolization of thigh hematoma, but [...] Date Chronic kidney disease (CKD) Hemodialysis patient ([facility]) ([facility]) Wednesday, , Wednesday History of blood transfusion 02/27/2022 Hypertension Seizure ([facility]) Developed seizure-like activity on 02/24 during [...] Resource Strain: Low Risk (08/31/2024) Received from [facility] Overall Financial Resource Strain (CARDIA) Difficulty of Paying Living Expenses: Not hard at all Food Insecurity: No Food Insecurity (08/31/2024) Received from [facility] Hunger Vital Sign Worried About Running Out of Food in the Last Year: Never true Ran Out of Food in the Last Year: Never true Transportation Needs: No Transportation Needs (08/31/2024) Received from [facility] PRAPARE - Transportation Lack of Transportation (Medical): No Lack of Transportation (Non-Medical): No Physical Activity: Not on file Stress: Not on file Social Connections: Not on file Intimate Partner Violence: Not At Risk (08/31/2024) Received from [facility] Humiliation, Afraid, Rape, and Kick questionnaire Fear of Current or Ex-Partner: No Emotionally Abused: No Physically Abused: No Sexually Abused: No Housing Stability: Low Risk (08/31/2024) Received from [facility] Housing Stability Vital Sign Unable to Pay [...] Emergency Contact: Deshawn Crystal Mobile Relation: Brother Law Librarian needed? No ADVANCED [employer]ANNING Apoorva Navarro [place] : 1950 Primary Care Physician: Roxie Spain The patient and/or family/surrogate voluntarily agreed to participate in ACP services. Patient s cognitive capacity: confused Code Status: [X] [FULL CODE - Continue all advanced life support: CPR,intubation,invasive procedures] [_] [DNR-CCA - DO NOT do CPR, intubation] [_] [DNR-SIDE STITCHER - Comfort care only] [_] DNR form [...] Loni Zambrano MD Division of Hospitalist Medicine [facility] [1] Past Surgical History: Procedure Laterality Date AV FISTULA PLACEMENT Left 08/07/2022 COLONOSCOPY N/A 01/25/2024 Performed by Chrissy Gilman MD at [facility] ENDOSCOPY IR CVC TUNNELED DIALYSIS CATHETER PLACEMENT 02/27/2022 IR CVC TUNNELED CATHETER PLACEMENT 02/27/2022 Candis Andrade MD [facility] SPECIAL PROCEDURES IR EMBOLIZATION 01/24/2024 IR EMBOLIZATION 01/24/2024 Jovan Glynn MD [facility] SPECIAL PROCEDURES [2] Family History Problem Relation Name Age of Onset Dementia Mother Stroke Father Prostate cancer Brother 69 Breast cancer Cousin 32 Stomach cancer Mother's Sister 70 [3] Current Facility-Administered Medications: sodium chloride 0.9 % infusion, 5-250 mL/hr, IntraVENous, PRN, Tuan D Romina, DO sodium chloride 0.9% (NS) flush 5-40 mL, 5-40 mL, IntraVENous, 2 times per day, Tuan D Romina, DO sodium chloride 0.9% (NS) flush 5-40 mL, 5-40 mL, IntraVENous, PRN, Tuan D Romina, DO vancomycin (Vancocin) 1,000 mg in sodium chloride 0.9 % 250 mL IVPB, 1,000 mg, IntraVENous, q24h, Tuanjake Montoya, DO Current Outpatient Medications: atorvastatin (Lipitor) [...] No Known Allergies documented in this encounter [facility] 10-22-2024 Emergency department Note USIV stopped working, unable to start vanc at this time. PREHEMMER RN called for USIV. Provider notified. Pt's grandson Mayur (information in contacts) would like contacted if pt's status changes. US IV placed by Dr Montoya, one set of cultures obtained from that line. DO attempted second US for second set of blood cultures without success and states we will just send one set of blood cultures. Medic unable to obtain US IV. shoemaker custom notified and is to attempt. Unable to [...] with Altered Mental Status Pt came from group home. Squad was called for weakness and altered [...] complaint of AMS. Pt is resident [facility]. Collateral hx provided by [facility] nurse and EMS. Report one day of increasing weakness and AMS. She receives dialysis 5x/week Wed-Wednesday. No missed sessions. Temp 101.3F at [facility]. Hospitalized from 08/14 - 08/24 at [facility] for cardiac arrest and sepsis and again from 08/26 to 09/06 at for sepsis believed to be due to an infected right thigh wound and hematoma Hospitalized again at [facility] from 09/13 - 10/12 due [...] Family History[3] SOCIAL HISTORY Social History[4] SCREENINGS [place] Coma Scale Best Eye Response: To verbal [...] - Abnormal Result Value Color, Urine Light [place] (*) Clarity, Urine Clear pH, Urine 8.5 [...] Glucose 99 Narrative: Performed by: Haley Kirk, [address] [place] [id number] CLIA ID: [id number] BLOOD CULTURE BLOOD CULTURE AEROBIC AND ANAEROBIC CULTURE WITH STAIN Narrative: The following orders were created for panel order Aerobic and Anaerobic Culture with Stain. Procedure Abnormality Status --------- ------ Culture, Aerobic Bacteri...[[id number]] In process Anaerobic culture[[id number]] In process Please view results for these [...] Patient does not have Septic Shock. Tuan Montoya, DO Patient has sepsis with likely soft [...] organism, unspecified whether acute organ dysfunction present ([facility]) 2. Altered mental status, unspecified altered mental [...] Date Chronic kidney disease (CKD) Hemodialysis patient ([facility]) (HCC) Wednesday, , Wednesday History of blood transfusion 02/27/2022 Hypertension Seizure ([facility]) Developed seizure-like activity on 02/24 during hospital admission [2] Past Surgical History: Procedure Laterality Date AV FISTULA PLACEMENT Left 08/07/2022 COLONOSCOPY N/A 01/25/2024 Performed by Chrissy Gilman MD at [facility] ENDOSCOPY IR CVC TUNNELED DIALYSIS CATHETER PLACEMENT 02/27/2022 IR CVC TUNNELED CATHETER PLACEMENT 02/27/2022 Candis Andrade MD [facility] SPECIAL PROCEDURES IR EMBOLIZATION 01/24/2024 IR EMBOLIZATION 01/24/2024 Jovan Glynn MD [facility] SPECIAL PROCEDURES [3] Family History [...] Resource Strain: Low Risk (08/31/2024) Received from [facility] Overall Financial Resource Strain (CARDIA) Difficulty of Paying Living Expenses: Not hard at all Food Insecurity: No Food Insecurity (08/31/2024) Received from [facility] Hunger Vital Sign Worried About Running Out of Food in the Last Year: Never true Ran Out of Food in the Last Year: Never true Transportation Needs: No Transportation Needs (08/31/2024) Received from [facility] PRAPARE - Transportation Lack of Transportation (Medical): No Lack of Transportation (Non-Medical): No Intimate Partner Violence: Not At Risk (08/31/2024) Received from [facility] Humiliation, Afraid, Rape, and Kick questionnaire Fear of Current or Ex-Partner: No Emotionally Abused: No Physically Abused: No Sexually Abused: No Housing Stability: Low Risk (08/31/2024) Received from [facility] Housing Stability Vital Sign Unable to Pay for Housing in the Last Year: No Number of Times Moved in the Last Year: 0 Homeless in the Last Year: No Tuan Montoya DO Resident 10/22/24 1636 Cosigned by Veronica Abebe MD at 10/23/2024 3:09 PM EDT Emergency Department Encounter [facility] ED Patient: Apoorva Gonzalez : 1950 Date [...] to the emergency department with AMS from group home. Pt is a poor historian. Focused exam: [...] dictating provider for clarification.) Veronica Abebe MD [facility] Veronica Abebe MD 10/22/24 1604 documented in this encounter [facility] 09-06-2024 Plan of care note Problem: Pain [...] include Patient will remain safe throughout shift [facility] 09-06-2024 Miscellaneous Notes Problem: Pain - Adult [...] and HTN who presented as transfer from [facility] for IR embolization of thigh hematoma. Note patient had a recent hospitalization at [facility] on 08/14 with sudden cardiac arrest, though to be sepsis due to R thigh and anterior hip abscess She underwent CT guided aspiration then I&D in OR, treated with IV Zosyn x7 days then discharged 08/24 to SNF with wound vac. Cultures reported to be negative. She re-presented to [facility] on 08/26 for increased pain in her [...] incrementation to 8.1. Patient was transferred to [facility] for IF embolization of thigh hematoma. IR [...] of 08/30, with plan for transfer to [facility] for potential embolization. The patient arrived to [facility] around 0001 08/31/24. Initial Hb was 7.0, [...] injury during shift Transfer Acceptance Note - [facility] Medicine Receiving Facility: [facility] Accepting Physician: Carine Mejia DO Date/Time: 7:54 AM Patient: Apoorva Gonzalez Sending Facility: [facility] Reason for Transfer: Evaluation and management of acutely bleeding R anterior thigh hematoma requiring IR embolization (not available at sending facility). Dr. Clarke Mckeon from IR at [facility] was contacted and agreed with transfer specifically to [facility] for embolization. Pertinent History: Presentation: Presented from [facility] to [facility] ED with increased right lower extremity pain and swelling, concern for hematoma, ortho and vascular consulted. CTA of lower extremity done showing contrast pooling in hematoma with active bleeding. Vascular recommended urgent transfer for IR embolization. Past Medical History: ESRD on HD (T, Th, Sat), HTN, HLD, chronic anemia. Recent hospitalization at [facility] on 08/14 with sudden cardiac arrest, though to be sepsis due to R thigh and anterior hip abscess, underwent CT guided aspiration then I&D in OR, treated with IV Zosyn x7 days then discharged 08/24 to [facility] with wound vac. Recent Findings: Labs: Hgb [...] RA Disposition: Accepted to General Medicine at [facility] for: Management of acute R anterior thigh hematoma with acute blood loss anemia (on chronic anemia) with planned IR embolization at [facility]. Coordination of multidisciplinary evaluation (e.g., IR, vascular surgery, nephrology) Note: Transfer center and sending facility advised to re-contact accepting physician if any clinical deterioration occurs prior to arrival. Hospitalist [facility] documented in this encounter [facility] Work Phone: 09-06-2024 History of Present illness Narrative Occupational Therapy OT Treatment Patient Name: Apoorva Gonzalez Department: [facility] L[facility] 60 Room: [facility]- Today's Date: 09/06/2024 Time Calculation Start Time: [...] admitted on 08/30 as a transfer from [facility] due to right anterior thigh hematoma. [...] A to elva, educated on use of hospital monitor for LE dressing, extended time to complete [...] 1: bed mobility, transfers, functional mobility Outcome Measures:[facility] Daily Activity Putting on and taking [...] States make urine Musculoskeletal: Comments: Rt thigh ylxuwlzmk-pdrtiije-baepdlgn intact Ble without edema Skin: General: Skin [...] cont to monitor Outpatient [facility] Access: lt fist- no issues - able [...] inpatient and to follow with the outpatient physics technical officer at discharge MAYANK Longo 09/06/24 1311 Discharge Planning Home or Post Acute Services In home services Expected Discharge Disposition Home H Does the patient need discharge transport arranged? No Insurance denied auth to SNF. Patient agreeable to home care. MD will place home care orders. Updated flow [facility] Dialysis center informed patient will return tomorrow. Brother will provide transportation home and to dialysis tomorrow. [employer] can accept. They are home care services that are offered through her insurance. Final home care orders and AVS sent to agency. Ann Sheridan RN, BSN Transitional Mail Carrier And Clerk Name: Apoorva Gonzalez Age: 74 y.o. Date [...] abscess, s/p I&D and antibiotics who presents [facility] on 08/30 for R thigh hematoma. IR consulted and not recommending IR embolization. Serial H/H. #. Rt Thigh hematoma s/p abscess drainage #Right anterior thigh cellulitis and hematoma - Recent hospitalization at [facility] on 08/14 with sudden cardiac arrest, though [...] - consult nephro for HD - cw amosga 10 on non dialysis days #acute on chronic anemia- due to blood loss - anemia of chronic disease due to ESRD #hx of seizures cw kera Code Status: Full DVT ppx: on hold [...] Post Acute Services Post acute facilities (Rehab/SNF/etc) ([facility]) Type of Post Acute Facility Services half-way Expected Discharge Disposition SNF Does the patient need discharge transport arranged? Yes RoundTrip coordination needed? Yes Precert is still pending to [facility]. Confirmed with facility that they offer dialysis onsite. Anticipating discharge today vs tomorrow. Will continue to follow for updates. Ann Sheridan RN, BSN Transitional Mail Carrier And Clerk Renal Staff HD Note I visited and [...] Onco-Nephrology Program Division of Nephrology & Hypertension [facility] [1] PRN medications: HYDROmorphone, meclizine [2] Current Facility-Administered Medications Medication Dose Route Frequency Provider Last Rate Last Admin amLODIPine (Norvasc) tablet 5 mg 5 mg oral Daily Teodoro Toscano MD 5 mg at 09/04/24820 atorvastatin (Lipitor) tablet 40 mg 40 mg oral Nightly Teodoro Toscano MD 40 mg at 09/04/242103 cholecalciferol (Vitamin D-3) tablet 125 mcg 125 mcg oral Daily Cory Montelongo MD 125 mcg at 09/04/24820 epoetin miller (Epogen) injection 10,000 Units 10,000 Units intravenous Once per day on Wednesday Cristina Stack APRN-[employer]RE[employer]TER HYDROmorphone (Dilaudid) tablet 1 mg 1 mg oral q6h PRN Arsenio Lombardo MD 1 mg at 09/05/24525 meclizine (Antivert) tablet 25 mg 25 mg [...] States make urine Musculoskeletal: Comments: Rt thigh qbskmnbtt-lzikscqk-jlewkhnq intact Ble without edema Skin: General: Skin [...] . K+=4.1 Outpatient Dialysis schedule: TTS [facility] Access: lt fist- no issues - able [...] inpatient and to follow with the outpatient physics technical officer at discharge MAYANK Longo 09/04/24 Transitional Mail Carrier And Clerk Notes: Transitional Care Coordination Progress Note: Patient discussed during interdisciplinary rounds. Team members present: MD and TCC Plan per Medical/Surgical team: PT/OT is recommending moderate intensity therapy. Patient is agreeable and would like to return to [facility]. Referral placed with facility. Will continue to follow for updates. 1445 Updates: precert started by [facility]. Will continue to follow for updates. Payor: [employer] Discharge disposition: SNF Potential Barriers: none ADOD: 1-3 days Assessment & Plan Hematoma Ann Sheridan RN Physical Therapy Physical Therapy Physical Therapy Evaluation Patient Name: Apoorva Gonzalez Today's Date: 09/04/2024 Time Calculation Start Time: 843 Stop Time: 08 Time Calculation (min): 14 min 6013/6013-A Assessment/Plan [...] admitted on 08/30 as a transfer from [facility] due to right anterior thigh hematoma. [...] ADLS and IADLs. Grandson's are available to merchandise pickup/receiving associate groceries for her. States she can have [...] score: balance: 9/16, gait: 09/14. Combined score 15/28 indicating high risk for falls Functional Assessments: Bed Mobility Bed Mobility: Yes Bed Mobility 1 Bed Mobility 1: Supine to sitting, Sitting to supine Level of Assistance 1: Close supervision Bed Mobility Comments 1: Unable to lift right leg into/out of bed. Uses UEs to lift leg. Would benefit from leg supervisor heavy equipment Transfers Transfer: Yes Transfer 1 Technique 1: [...] LLE : Within Functional Limits Outcome Measures: [facility] Basic Mobility Turning from your back [...] Therapy Evaluation Patient Name: Apoorva Gonzalez Department: [facility] 60 Room: [address] [place] [address] Today's Date: 09/04/2024 Time Calculation Start Time: 843 Stop Time: 58 Time Calculation (min): 14 [...] admitted on 08/30 as a transfer from [facility] due to right anterior thigh hematoma. 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 female [...] seizures(on keppra), HTN, presenting as transfer from [facility] for IR intervention for thigh hematoma. [...] cellulitis and hematoma - Recent hospitalization at [facility] on 08/14 with sudden cardiac arrest, though [...] bleeding Disp: PT/ot pending POA: Son: Mayur [phone] I reviewed the resident/fellow's documentation and discussed [...] this note may have been generated using [employer] voice recognition software. Reasonable efforts were made [...] PRN medications: HYDROmorphone, meclizine 09/03/24 1612 Transitional Mail Carrier And Clerk Notes: Transitional Care Coordination Progress Note: Patient discussed during interdisciplinary rounds. Team members present: MD and TCC Plan per Medical/Surgical team: Pending PT/OT to evaluate for discharge needs. Anticipating discharge for tomorrow. Payor: [employer]? Discharge disposition: [facility] Potential Barriers: none ADOD: 1-3 days [...] seizures(on keppra), HTN, presenting as transfer from [facility] for IR intervention for thigh hematoma. [...] cellulitis and hematoma - Recent hospitalization at [facility] on 08/14 with sudden cardiac arrest, though [...] this note may have been generated using [employer] voice recognition software. Reasonable efforts were made [...] seizures(on keppra), HTN, presenting as transfer from [facility] for IR intervention for thigh hematoma. [...] cellulitis and hematoma - Recent hospitalization at [facility] on 08/14 with sudden cardiac arrest, though [...] this note may have been generated using [employer] voice recognition software. Reasonable efforts were made [...] Daily [5] [6] PRN medications: HYDROmorphone, meclizine [facility] met with patient yesterday and again today for medicaid screening. Each time patient refuses screening stating that she has insurance. [facility] states her insurance is showing as inactive in the system. called [facility] to inquire if they are billing insurance for this patient. Dwain at [facility] states that she has a [employer] product and provides numbers: Group # [id number] Plan # [id number]. JOSÉ MIGUEL Rios Apoorva [...] States make urine Musculoskeletal: Comments: Rt thigh twdnblxdp-zulkqhyt-tnbdocdq intact Ble without edema Skin: General: Skin [...] Units Result Value Ref Range PRODUCT CODE [id number] Unit Number [id number] Unit ABO O Unit RH POS XM [...] electrolytes . K+=3.7 Outpatient Dialysis schedule: TTS [facility] Access: lt fist- no issues - able [...] inpatient and to follow with the outpatient physics technical officer at discharge MAYANK Longo Apoorva Gonzalez is [...] were discussed with the ID attending, Dr. Anedrson. I spent 20 minutes in the professional and overall care of this patient. Berta Chambers PA-C Infectious Disease Team B Epic chat preferred Clinical updates sent to [facility] via [facility] hospital for patient to return to [facility] Paula Montes upon discharge on TTS schedule. Awaiting update from [facility] on medicaid eligibility. JOSÉ MIGUEL Rios [...] Units Result Value Ref Range PRODUCT CODE [id number] Unit Number [id number] Unit ABO O Unit RH POS XM [...] seizures(on keppra), HTN, presenting as transfer from [facility] for IR intervention for thigh hematoma. [...] cellulitis and hematoma - Recent hospitalization at [facility] on 08/14 with sudden cardiac arrest, though [...] this note may have been generated using [employer] voice recognition software. Reasonable efforts were made [...] admitted for Hematoma. Pharmacy reviewed the patient's [id number] medications and allergies for accuracy. Medications ADDED: All medications on SHOE [employer]S [employer]ER list Medications CHANGED: None Medications REMOVED: None The list below reflects the updated SHOE [employer]S [employer]ER list. Prior to Admission Medications Prescriptions Last [...] Allergies Patient declines M2B at discharge. Sources: [facility] --[facility] Additional Comments: [employer] medication list updated per [facility] SN[facility] medication list List was active as of 08/26 Jenn Martin PharmD Transitions of Care Pharmacist 08/31/24 Secure Chat preferred If no response call [phone] or Vocera "Med Rec" 08/31/24 1248 Discharge Planning Living [...] were you homeless or living in a [place] facility (including now)? N Transportation Needs In the [...] name of provider Pharmacy: [facility] DME: [place]: denies Dialysis: [facility] in [place] TTS Social Work Needs: Patient stated she has transportation to dialysis. Denies any financial or social work needs. Transportation at discharge: will possibly need transportation home Potential Barriers: none Discharge Disposition: [facility] ADOD: 2-4 days Ann Sheridan RN, BSN Transitional Mail Carrier And Clerk Apoorva Gonzalez is a 74 y.o. female [...] seizures(on keppra), HTN, presenting as transfer from [facility] for IR intervention for thigh hematoma. CTA was obtained that showed expanding hematoma in right thigh. Patient status post 2 units packed RBC. IR on board at this time did not recommended embolization, requested continue clinical monitoring and serial H&H. #. Rt Thigh hematoma s/p abscess drainage #Right anterior thigh cellulitis and hematoma - Recent hospitalization at [facility] on 08/14 with sudden cardiac arrest, though [...] this note may have been generated using Net[employer] voice recognition software. Reasonable efforts were made [...] HYDROmorphone, meclizine, vancomycin documented in this encounter [facility] Work Phone: 09-06-2024 Hospital course Narrative Discharge [...] and HTN who presented as transfer from [facility] for IR embolization of thigh hematoma. Note patient had a recent hospitalization at [facility] on 08/14 with sudden cardiac arrest, though to be sepsis due to R thigh and anterior hip abscess She underwent CT guided aspiration then I&D in OR, treated with IV Zosyn x7 days then discharged 08/24 to SNF with wound vac. Cultures reported to be negative. She re-presented to [facility] on 08/26 for increased pain in her [...] incrementation to 8.1. Patient was transferred to [facility] for IF embolization of thigh hematoma. IR [...] Levi Geronimo MD documented in this encounter [facility] Work Phone: 09-06-2024 Hospital Note Formatting of t his note might be different from the original. Apoorva Gonzalez is a 74 y.o. female presenting with pmhx of seizures(on keppra), ESRD on dialysis TTS LUE fistula, and HTN who presented as transfer from [facility] for IR embolization of thigh hematoma. Note patient had a recent hospitalization at [facility] on 08/14 with sudden cardiac arrest, though to be sepsis due to R thigh and anterior hip abscess She underwent CT guided aspiration then I&D in OR, treated with IV Zosyn x7 days then discharged 08/24 to SNF with wound vac. Cultures reported to be negative. She re-presented to [facility] on 08/26 for increased pain in her [...] incrementation to 8.1. Patient was transferred to [facility] for IF embolization of thigh hematoma. IR [...] stable conditioned on 09/06 with home care. [facility] Work Phone: 09-06-2024 Hospital Discharge instructions Levi [...] pleasure taking care of you at [facility]! Best, Dr. Levi Geronimo Ann Sheridan RN - 09/06/2024 1:31 PM EDT [facility] will provide your home care services. There contact number is . A nurse will contact you 24-48 hours post discharge to arrange services. documented in this encounter [facility] Work Phone: 09-06-2024 Plan of care note [...] did make progress toward the following goals. [facility] Work Phone: 09-05-2024 Nurse Note Patient walked around this evening in the hallway with the walker and she tolerated it well. She said moving around helps lessen her pain. T [facility] 09-05-2024 Nurse Note Patient walked around this [...] 18 Temp 36.4 documented in this encounter [facility] Work Phone: 09-05-2024 Plan of care note [...] include Pt will remain safe throughout shift [facility] Work Phone: 09-05-2024 Nurse Note Report to [...] Last Updated: 10:59 AM by AMELIA VALENZUELA [facility] 09-05-2024 Nurse Note Report from Sending RN: [...] assess when pt arrives to the unit. [facility] 09-05-2024 Plan of care note Problem: Pain [...] not make progress toward the following goals. [facility] Work Phone: 09-04-2024 Nurse Note During shift change pt was found coming out of bathroom with walker, which was tolerated well. Pt is alert and denies pain with clear speech. Pt has no concerns at this time. Call light and essentials wnr of pt. [facility] 09-04-2024 Plan of care note Problem: [...] by end of the shift Outcome: Progressing [facility] 09-04-2024 Plan of care note The patient's [...] by end of the shift Outcome: Progressing [facility] 09-03-2024 Plan of care note The [...] appropriate for maintaining nutritional needs Outcome: Progressing [facility] 09-02-2024 Procedure note I evaluated the patient during dialysis. No complaints. BP: 128/73 BFR: 400 Anticipated fluid removal: 2L Vascular access: left upper arm AVF Plan: Continue TTS dialysis schedule. Jennifer [facility] Work Phone: 09-02-2024 Procedure note I evaluated the patient during dialysis. No complaints. BP: 128/73 BFR: 400 Anticipated fluid removal: 2L Vascular access: left upper arm AVF Plan: Continue TTS dialysis schedule. Scheолегing documented in this encounter [facility] Work Phone: 09-02-2024 Nurse Note Report to [...] Last Updated: 10:45 AM by GUILHERME GONZALES [facility] 09-02-2024 Plan of care note Problem: Pain [...] level or baseline comfort level Outcome: Progressing [facility] Work Phone: 09-02-2024 Nurse Note Report from [...] Catheter Dressing: AVF Last Dressing Change: AVF [facility] 09-02-2024 Plan of care note Problem: [...] address these barriers include pain medication . [facility] 09-01-2024 Plan of care note The patient's [...] monitored and maintained or improved Outcome: Progressing [facility] 09-01-2024 seaport planning manager Note IR consulted for consideration of right thigh hematoma aspiration. Imaging features consistent with hematoma without an obvious suspicious target for infection/abscess aspiration. [facility] Work Phone: 09-01-2024 Plan of care note [...] these barriers include surgery and pain medication. [facility] Work Phone: 08-31-2024 Nurse Note Report to [...] Last Updated: 6:24 PM by DEISY CASTAÑEDA [facility] 08-31-2024 Nurse Note Pt hemoglobin 6.4. Md Toscano notified. Order to continue to monitor until next CBC draw. [facility] 08-31-2024 Consult note Associated Order (s): [...] ESRD management She gets dialysis TTS at [facility] in [place]. She states her treatments have been uneventful [...] Arianna Hogan MD [1] No Known Allergies [facility] Work Phone: 08-31-2024 Consult note Associated Order (s): Inpatient consult to Nephrology Dialysis Inpatient consult to Nephrology Dialysis Consult performed by: Arianna Hogan MD Consult ordered by: eTodoro Toscano MD NEPHROLOGY NEW CONSULT NOTE Patient ID: Apoorva Gonzalez is a 74 y.o. female. Reason for consult: ESRD-HD HPI Apoorva Gonzalez is a 74 y.o. female - With past medical Hx of ESRD and seizures - Admitted for thigh hematoma - Nephrology was consulted for ESRD management She gets dialysis TTS at [facility] in [place]. She states her treatments have been uneventful [...] presented on 08/31 as a transfer from [facility] for further management of R thigh hematoma and possible IR embolization. Pt was recently hospitalized from 08/14-08/24/24 at [facility] for sudden cardiac arrest and sepsis [...] On 08/26/2024, pt presented from SNF to [facility] ED with increased RLE pain and [...] concern for active bleeding. Pt transferred to [facility] on 08/31 for further management and possible [...] SEDRATE No results found for: "HIV1X2", "HIVCONF", "GGCXBS0EV" No results found for: "HEPCABINIT", "HEPCAB", HCVPCRQUANT [...] Berta Chambers PA-C Infectious Disease Team B [facility] preferred [1] No family history on [...] Mon/wed/wed thiamine (Vitamin B-1) 250 mg tablet Take [...] Evelia Mejia PharmD documented in this encounter [facility] Work Phone: 08-31-2024 Consult note Associated Order [...] with a PMHx of ESRD on HD (,, Wed LUE fistula), HTN, HLD, chronic anemia who presented on 08/31 as a transfer from [facility] for further management of R thigh hematoma and possible IR embolization. Pt was recently hospitalized from 08/14-08/24/24 at [facility] for sudden cardiac arrest and sepsis [...] wound vac. On 08/26/2024, pt presented from [facility] to [facility] ED with increased RLE pain and [...] concern for active bleeding. Pt transferred to [facility] on 08/31 for further management and possible [...] SEDRATE No results found for: "HIV1X2", "HIVCONF", "[id number]" No results found for: "HEPCABINIT", "HEPCAB", HCVPCRQUANT [...] [4] [5] PRN medications: HYDROmorphone, meclizine, vancomycin [facility] Work Phone: 08-31-2024 Nurse Note Report from [...] 83) HR 83 RR 18 Temp 36.4 [facility] Work Phone: 08-31-2024 Plan of care note The patient's goals for the shift include rest The clinical goals for the shift include pt will remain safe during shift [facility] Work Phone: 08-31-2024 seaport planning manager Note Apoorva Gonzalez is a 74 [...] of 08/30, with plan for transfer to [facility] for potential embolization. The patient arrived to [facility] around 0001 08/31/24. Initial Hb was 7.0, [...] JUSTINE ROQUE on 08/31/24 at 9:02 AM. [facility] Work Phone: 08-31-2024 Consult note Associated Order [...] and signs/symptoms of toxicity. Evelia Mejia PharmD [facility] Work Phone: 08-31-2024 Plan of care note [...] safe and free from injury during shift [facility] Work Phone: 08-31-2024 History and physical note History Of Present Illness Apoorva Gonzalez is a 74 y.o. female presenting with pmhx of seizures(on keppra), ESRD on dialysis Tths LUE fistula, HTN, presenting as transfer from [facility] for IR intervention . Patient initially [...] for intervention. Of note: Recent hospitalization at [facility] on 08/14 with sudden cardiac arrest, though [...] LUE fistula, HTN, presenting as transfer from [facility] for IR intervention for R thigh [...] mandel Mobile Relation: Significant Other Preferred language: Polish Law Librarian needed? No Cory Montelongo MD [1] No [...] decision making as documented in the note. [facility] Work Phone: 08-31-2024 History and physical note History Of Present Illness Apoorva Gonzalez is a 74 y.o. female presenting with pmhx of seizures(on keppra), ESRD on dialysis Tths LUE fistula, HTN, presenting as transfer from [facility] for IR intervention . Patient initially [...] for intervention. Of note: Recent hospitalization at [facility] on 08/14 with sudden cardiac arrest, though [...] LUE fistula, HTN, presenting as transfer from [facility] for IR intervention for R thigh [...] - cw vanc/zosyn , first day was 5 - npo - 0.2 mg iv dilaudid prn severe pain, 5mg oxy prn moderate pain - q6h cbc #ESRD on dialysis :: LUE fistula :: TThS [ ] consult renal in am - cw lokelga 10 on non dialysis days #acute on chronic anemia :: labs suggesting anemia of chronic disease, re-obtain labs here #hx of seizures cw keppra F: as needed E: K>4 Mg>2 N: npo A: PIV DVT Ppx: none GI Ppx: none Code status: full code NOK: Extended Emergency Contact Information Primary Emergency Contact: Edward mandel Mobile Relation: Significant Other Preferred language: Polish Law Librarian needed? No Cory Montelnogo MD [1] No past medical history on [...] in the note. documented in this encounter [facility] Work Phone: 08-30-2024 seaport planning manager Note Transfer Acceptance Note - [facility] Medicine Receiving Facility: [facility] Accepting Physician: Carine Mejia DO Date/Time: 7:54 AM Patient: Apoorva Gonzalez Sending Facility: [facility] Reason for Transfer: Evaluation and management of acutely bleeding R anterior thigh hematoma requiring IR embolization (not available at sending facility). Dr. Clarke Mckeon from IR at [facility] was contacted and agreed with transfer specifically to [facility] for embolization. Pertinent History: Presentation: Presented from [facility] to [facility] ED with increased right lower extremity pain and swelling, concern for hematoma, ortho and vascular consulted. CTA of lower extremity done showing contrast pooling in hematoma with active bleeding. Vascular recommended urgent transfer for IR embolization. Past Medical History: ESRD on HD (T, Th, Sat), HTN, HLD, chronic anemia. Recent hospitalization at [facility] on 08/14 with sudden cardiac arrest, though [...] RA Disposition: Accepted to General Medicine at [facility] for: Management of acute R anterior thigh hematoma with acute blood loss anemia (on chronic anemia) with planned IR embolization at [facility]. Coordination of multidisciplinary evaluation (e.g., IR, vascular surgery, nephrology) Note: Transfer center and sending facility advised to re-contact accepting physician if any clinical deterioration occurs prior to arrival. Hospitalist [facility] Work Phone: 07-17-2024 Emergency department Note Discharged. Instructions given. Concerns addressed. Patient aware of dialysis schedule. Visitor at bedside and is driving patient home. Patient is alert oriented and cooperative. Gait is steady. No sign or symptom of distress. Transported to [facility] via wheel chair. [facility] 07-17-2024 Emergency department Note Discharged. Instructions given. Concerns addressed. Patient aware of dialysis schedule. Visitor at bedside and is driving patient home. Patient is alert oriented and cooperative. Gait is steady. No sign or symptom of distress. Transported to [facility] via wheel chair. This RN is [...] History of blood transfusion 02/27/2022 Hypertension Seizure ([facility]) Developed seizure-like activity on 02/24 during hospital admission SURGICAL HISTORY Past Surgical History: Procedure Laterality Date AV FISTULA PLACEMENT Left 08/07/2022 COLONOSCOPY N/A 01/25/2024 Performed by Chrissy Gilman MD at [facility] ENDOSCOPY IR CVC TUNNELED DIALYSIS CATHETER PLACEMENT 02/27/2022 IR CVC TUNNELED CATHETER PLACEMENT 02/27/2022 Candis Anrdade MD [facility] SPECIAL PROCEDURES IR EMBOLIZATION 01/24/2024 IR EMBOLIZATION 01/24/2024 Jovan Glynn MD [facility] SPECIAL PROCEDURES CURRENT MEDICATIONS Current [...] 01/25/2024 Performed by Chrissy Gilman MD at [facility] ENDOSCOPY IR CVC TUNNELED DIALYSIS CATHETER PLACEMENT 02/27/2022 IR CVC TUNNELED CATHETER PLACEMENT 02/27/2022 Candis Andrade MD [facility] SPECIAL PROCEDURES IR EMBOLIZATION 01/24/2024 IR EMBOLIZATION 01/24/2024 Jovan Glynn MD [facility] SPECIAL PROCEDURES [facility] Budlarry Navarro [place] 74 y.o. female presents with the following [...] Medications - No data to display The ekg monitor revealed sinus rhythm as interpreted by me. The ekg monitor was ordered secondary to the patient's [...] PM PATIENT REFERRED TO: Roxie Spain [address] [facility] [id number] Schedule an appointment as soon [...] 07/17/2024 10:26 PM EDT Emergency Department Encounter [facility] EMERGENCY DEPT Patient: Apoorva Gonzalez [...] Sanchez DO 07/17/242042 documented in this encounter [facility] 07-17-2024 Hospital Discharge instructions Victor Manuel Kowalski DO - 07/17/2024 8:39 PM EDT Please attend your previously scheduled session for dialysis tomorrow in addition to and this coming Wednesday. Please follow-up with your primary physician or if you do not have a PCP, with the [facility], in 1 week. Please return to the emergency department for any new or worsening symptoms as we discussed. documented in this encounter [facility] 07-17-2024 Emergency department Note This RN is taking over care of this patient at this time. Per Previous shift RN;s patient is at dialysis and will return to ED when dialysis is complete. [facility] 07-17-2024 Nurse Note Patient Name: Apoorva Gonzalez Patient : 1950 Acct: [id number] Date of Admission: 07/17/2024 Room/Bed: / Code Status: Prior Allergies: No Known Allergies [...] (0) 3 Regular None (Room air) Clear [place] Warm;Dry;No swelling Soft Active 07/17/242000 Alert (0) 3 Regular None (Room air) Clear [place] -- -- -- Labs Lab Results Component [...] - Before each treatment: Dialysis Machine No.: [id number] Machine Number: [id number] Dialyzer Lot No.: [id number] Tubing Lot Number: [id number] All Connections Secure: Yes Venous Parameters Set: Yes Arterial Parameters Set: Yes NS Bag: Yes Saline Line Double Clamped: Yes Dialyzer: Nipro Prime Volume (mL): 200 mL RO Machine Number: [id number] RO Machine Log Sheet Completed: Yes Machine Alarm Self Test: Completed, Passed (07/17/24 1627) Air Foam Detector: Tested, Proper Function, pH Reading Extracorporeal Circuit Tested for Integrity: Yes Machine Conductivity: 13.6 Manual Conductivity: 13.7 Manual Ph: 7 Bleach Test (Neg): Yes Bath Temperature: 36 C (96.8 F) Conductivity Meter Serial #: [id number] Machine Functioning Alarm Free? Yes Dialysis Bath: [...] -- -- 84 -- -- -- 07/17/24 1943 (!) 150/77 36.3 C (97.3 F) -- 85 -- -- -- 07/17/24 1930 124/61 -- -- 103 -- -- -- 07/17/24 191 137/75 -- -- 85 -- -- -- [...] Explanation Response to Education: Verbalized Understanding T [facility] 07-17-2024 Nurse Note Patient Name: Apoorva Gonzalez Patient : 1950 Acct: [id number] Date of Admission: 07/17/2024 Room/Bed: [facility] Code Status: Prior Allergies: No [...] Date of Last Dressing Change: N/A N/A , [address]?: N/A Red [...] (0) 3 Regular None (Room air) Clear [place] Warm;Dry;No swelling Soft Active 07/17/242000 Alert (0) 3 Regular None (Room air) Clear [place] -- -- -- Labs Lab Results Component [...] - Before each treatment: Dialysis Machine No.: [id number] RO Machine Number: [id number] Dialyzer Lot No.: [id number] Tubing Lot Number: [id number] All Connections Secure: Yes Venous Parameters Set: Yes Arterial Parameters Set: Yes NS Bag: Yes Saline Line Double Clamped: Yes Dialyzer: Nipro Prime Volume (mL): 200 mL RO Machine Number: [id number] RO Machine Log Sheet Completed: Yes Machine Alarm Self Test: Completed, Passed (07/17/24 1627) Air Foam Detector: Tested, Proper Function, pH Reading Extracorporeal Circuit Tested for Integrity: Yes Machine Conductivity: 13.6 Manual Conductivity: 13.7 Manual Ph: 7 Bleach Test (Neg): Yes Bath Temperature: 36 C (96.8 F) Conductivity Meter Serial #: [id number] Machine Functioning Alarm Free? Yes Dialysis Bath: K+ (Potassium): 2 Ca+ (Calcium): 2.5 Na+ (Sodium): 137 HCO3 (Bicarb): 35 Chlorine Testing - Before each treatment and every 4 hours: Time On: 7 Time Off: 1942 Treatment Goal: 3L Weight [...] 120 600 Yes pt stable rmv 1557 04/14/25 1943 -- -- -- -- -- -- -- [...] Education: Verbalized Understanding documented in this encounter [facility] 07-17-2024 Emergency department Note Patient taken to dialysis. [facility] 07-17-2024 Emergency department Note Pt went to an open bed that was not assigned to any nurse or medic and transferred pt over. Said they were waiting too long. Bed was moved to the medic desk by this medic. Visually monitoring until a bed opens. [facility] 07-17-2024 Physician Emergency department Note EMERGENCY DEPARTMENT [...] History of blood transfusion 02/27/2022 Hypertension Seizure ([facility]) Developed seizure-like activity on 02/24 during hospital admission SURGICAL HISTORY Past Surgical History: Procedure Laterality Date AV FISTULA PLACEMENT Left 08/07/2022 COLONOSCOPY N/A 01/25/2024 Performed by Chrissy Gilman MD at [facility] ENDOSCOPY IR CVC TUNNELED DIALYSIS CATHETER PLACEMENT 02/27/2022 IR CVC TUNNELED CATHETER PLACEMENT 02/27/2022 Candis Andrade MD [facility] SPECIAL PROCEDURES IR EMBOLIZATION 01/24/2024 IR EMBOLIZATION 01/24/2024 Jovan Glynn MD [facility] SPECIAL PROCEDURES CURRENT MEDICATIONS Current [...] Homeless in the Last Year: No SCREENINGS [place] Coma Scale Best [place] Response: To verbal [...] History of blood transfusion 02/27/2022 Hypertension Seizure ([facility]) Developed seizure-like activity on 02/24 during hospital admission Past Surgical History: Procedure Laterality Date AV FISTULA PLACEMENT Left 08/07/2022 COLONOSCOPY N/A 01/25/2024 Performed by Chrissy Gilman MD at [facility] ENDOSCOPY IR CVC TUNNELED DIALYSIS CATHETER PLACEMENT 02/27/2022 IR CVC TUNNELED CATHETER PLACEMENT 02/27/2022 Candis Andrade MD [facility] SPECIAL PROCEDURES IR EMBOLIZATION 01/24/2024 IR EMBOLIZATION 01/24/2024 Jovan Glynn MD [facility] Melanie [place] 74 y.o. female presents with the following [...] Medications - No data to display The ekg monitor revealed sinus rhythm as interpreted by me. The ekg monitor was ordered secondary to the patient's [...] PM PATIENT REFERRED TO: Roxie Spain [address] [place] [id number] Schedule an appointment as soon as possible [...] Sanchez DO at 07/17/2024 10:26 PM EDT [facility] 07-17-2024 Physician Emergency department Note Emergency Department Encounter [facility] EMERGENCY DEPT Patient: Apoorva Gonzalez [...] [employer] Rivas Sanchez DO 07/17/242042 [employer] Phone: 06-29-2024 Hospital Discharge instructions Robson Syed [...] of you today. documented in this encounter [facility] 06-29-2024 Emergency department Note Pt returned from dialysis at this time [facility] 06-29-2024 Emergency department Note Pt returned from [...] Chronic kidney disease (CKD) Hemodialysis patient (CMS/HCC) ([facility]) Wednesday, , Wednesday History of blood transfusion 02/27/2022 Hypertension Seizure ([facility]) Developed seizure-like activity on 02/24 during hospital admission SURGICAL HISTORY Past Surgical History: Procedure Laterality Date AV FISTULA PLACEMENT Left 08/07/2022 COLONOSCOPY N/A 01/25/2024 Performed by Chrissy Gilman MD at [facility] ENDOSCOPY IR CVC TUNNELED DIALYSIS CATHETER PLACEMENT 02/27/2022 IR CVC TUNNELED CATHETER PLACEMENT 02/27/2022 Candis Andrade MD [facility] SPECIAL PROCEDURES IR EMBOLIZATION 01/24/2024 IR EMBOLIZATION 01/24/2024 Jovan Glynn MD [facility] SPECIAL PROCEDURES CURRENT MEDICATIONS Previous [...] Homeless in the Last Year: No SCREENINGS [place] Coma Scale Best Eye Response: Spontaneous Best [...] acute focal neurological deficit. Normal finger-nose. Normal diud-kb-sgpn. NIHSS 0 Psychiatric: Mood and Affect: Mood [...] Culture. Procedure Abnormality Status --------- ------ Complete Urinalysis[[id number]] Please view results for these tests on [...] upper or lower extremity drift. Cerebellar (finger-nose, jxyq-zw-lgvb) normal. Brief ED course/MDM: Patient appears nontoxic. [...] dictating provider for clarification.) Veronica Abebe MD [facility] Veronica Abebe MD 06/29/24 1322 documented in this encounter [facility] 06-29-2024 Nurse Note Patient Name: Apoorva Gonzalez Patient : 1950 Acct: [id number] Date of Admission: 06/29/2024 Room/Bed: [facility] Code Status: Prior Allergies: No Known Allergies [...] (0) 3 Regular None (Room air) Clear [place] Warm;Dry;No swelling Soft Active 06/29/24 1756 Alert (0) 3 Regular None (Room air) Clear [place] Warm;Dry;No swelling -- -- Labs Lab Results [...] - Before each treatment: Dialysis Machine No.: [id number] RO Machine Number: [id number] Dialyzer Lot No.: [id number] Tubing Lot Number: [id number] All Connections Secure: Yes Venous Parameters Set: Yes Arterial Parameters Set: Yes NS Bag: Yes Saline Line Double Clamped: Yes Dialyzer: Nipro Prime Volume (mL): 200 mL RO Machine Number: [id number] RO Machine Log Sheet Completed: Yes Machine Alarm Self Test: Completed, Passed (1420) (06/29/24 142) Air Foam Detector: Tested, Proper Function, pH Reading Extracorporeal Circuit Tested for Integrity: Yes Machine Conductivity: 13.8 Manual Conductivity: 13.6 Manual Ph: 7.2 Bleach Test (Neg): Yes Bath Temperature: 36 C (96.8 F) Conductivity Meter Serial #: [id number] Machine Functioning Alarm Free? Yes Dialysis Bath: [...] -- 55 18 96 % -- -- 06/29/241741 (!) 150/76 -- -- 65 -- -- -- -- 06/29/24 173 (!) 154/83 -- -- 74 -- -- [...] Tools: Explanation Response to Education: Verbalized Understanding [facility] 06-29-2024 Nurse Note Patient Name: Apoorva Gonzalez Patient : 1950 Acct: [id number] Date of Admission: 06/29/2024 Room/Bed: [facility] Code Status: Prior Allergies: No Known Allergies [...] (0) 3 Regular None (Room air) Clear [place] Warm;Dry;No swelling Soft Active 06/29/24 1756 Alert (0) 3 Regular None (Room air) Clear [place] Warm;Dry;No swelling -- -- Labs Lab Results [...] - Before each treatment: Dialysis Machine No.: [id number] RO Machine Number: [id number] Dialyzer Lot No.: [id number] Tubing Lot Number: [id number] All Connections Secure: Yes Venous Parameters Set: Yes Arterial Parameters Set: Yes NS Bag: Yes Saline Line Double Clamped: Yes Dialyzer: Nipro Prime Volume (mL): 200 mL RO Machine Number: [id number] RO Machine Log Sheet Completed: Yes Machine Alarm Self Test: Completed, Passed (1420) (06/29/24 1421) Air Foam Detector: Tested, Proper Function, pH Reading Extracorporeal Circuit Tested for Integrity: Yes Machine Conductivity: 13.8 Manual Conductivity: 13.6 Manual Ph: 7.2 Bleach Test (Neg): Yes Bath Temperature: 36 C (96.8 F) Conductivity Meter Serial #: [id number] Machine Functioning Alarm Free? Yes Dialysis Bath: [...] Education: Verbalized Understanding documented in this encounter [facility] 06-29-2024 Emergency department Note Pt notified that she will go to dialysis between 2-3 pm today. [facility] 06-29-2024 Emergency department Note Report given to CYNTHIA Schulte [facility] 06-29-2024 Physician Emergency department Note EMERGENCY DEPARTMENT ENCOUNTER Pt Name: Apoorva Gonzalez Birthdate 1950 Date of evaluation: 06/29/2024 ED Provider: Kierra Escamilal PA-C CHIEF COMPLAINT Chief Complaint Patient presents [...] History of blood transfusion 02/27/2022 Hypertension Seizure ([facility]) Developed seizure-like activity on 02/24 during hospital admission SURGICAL HISTORY Past Surgical History: Procedure Laterality Date AV FISTULA PLACEMENT Left 08/07/2022 COLONOSCOPY N/A 01/25/2024 Performed by Chrissy Gilman MD at [facility] ENDOSCOPY IR CVC TUNNELED DIALYSIS CATHETER PLACEMENT 02/27/2022 IR CVC TUNNELED CATHETER PLACEMENT 02/27/2022 Candis Andrade MD [facility] SPECIAL PROCEDURES IR EMBOLIZATION 01/24/2024 IR EMBOLIZATION 01/24/2024 Jovan Gylnn MD [facility] SPECIAL PROCEDURES CURRENT MEDICATIONS Previous [...] acute focal neurological deficit. Normal finger-nose. Normal gang-df-bykg. NIHSS 0 Psychiatric: Mood and Affect: Mood [...] Culture. Procedure Abnormality Status --------- ------ Complete Urinalysis[[id number]] Please view results for these tests on [...] Abebe MD at 06/29/2024 4:48 PM EDT [employer] Phone: 06-29-2024 Physician Emergency department Note Emergency Department Encounter [facility] EMERGENCY DEPT Patient: Apoorva Gonzalez [...] upper or lower extremity drift. Cerebellar (finger-nose, yock-bz-npyg) normal. Brief ED course/MDM: Patient appears nontoxic. [...] [employer] Veronica Abebe MD 06/29/24 1322 [facility] 03-03-2024 Nurse Note Family member here to take patient home, DC papers given to patient, Education completed by mily MARIE but reinforced [facility] 03-03-2024 Nurse Note Family member here to take patient home, DC papers given to patient, Education completed by mily MARIE but reinforced Patient return from dialysis. Alert and oriented. Tele removed and IV Dc'd. States that she called family member for ride home and he is on the way Patient Name: Apoorva Gonzalez Patient : 1950 Acct: [id number] Date of Admission: 03/02/2024 Room/Bed: [facility] B Code Status: Full Code Allergies: No [...] Lab Results Component Value Date/Time WBC 7.5 03/03/2024 05 HGB 10.2 (L) 03/03/2024 0521 HGB 12.1 03/02/2024 0510 HCT 32.8 (L) 03/03/2024 05 PLT 409 03/03/2024 05 NA 138 03/03/2024 05 K 5.0 03/03/2024 05 CL 98 03/03/2024 05 CO2 28 03/03/2024 05 BUN 42 (H) 03/03/2024520 CREATININE 8.03 (H) 03/03/2024520 CALCIUM 8.3 (L) 03/03/2024 05 PHOS 5.7 (H) 01/25/2024 0003 IV Drips and Rate/Dose Safety - Before each treatment: Dialysis Machine No.: [id number] RO Machine Number: [id number] Dialyzer Lot No.: [id number] Tubing Lot Number: [id number] All Connections Secure: Yes Venous Parameters Set: Yes Arterial Parameters Set: Yes NS Bag: Yes Saline Line Double Clamped: Yes Dialyzer: Nipro Prime Volume (mL): 200 mL RO Machine Number: [id number] RO Machine Log Sheet Completed: Yes Machine Alarm Self Test: Completed, Passed (085) (03/03/24 7814) Air Foam Detector: Tested, Proper Function Extracorporeal Circuit Tested for Integrity: Yes Machine Conductivity: 13.6 Manual Conductivity: 13.7 Machine Ph: 7 Manual Ph: 7 Bleach Test (Neg): Yes Bath Temperature: 36 C (96.8 F) Conductivity Meter Serial #: [id number] Machine Functioning Alarm Free? Yes Dialysis Bath: [...] -- -- 92 -- -- -- 03/03/24 183 156/88 -- -- 89 -- -- -- 03/03/24 181 (!) 163/90 -- -- 91 -- -- -- 03/03/24 180 (!) 166/89 -- -- 92 -- -- [...] Name: Apoorva Gonzalez Patient : 1950 Acct: [id number] Date of Admission: 03/02/2024 Room/Bed: [facility] B Code Status: Full Code Allergies: No [...] Primary RN (First Initial, Last Name, Title): [id number] Incapacitated Nurse Education Completed: Yes HBsAg ONLY: [...] - Before each treatment: Dialysis Machine No.: [id number] RO Machine Number: [id number] Dialyzer Lot No.: [id number] Tubing Lot Number: [id number] All Connections Secure: Yes Venous Parameters Set: Yes Arterial Parameters Set: Yes NS Bag: Yes Saline Line Double Clamped: Yes Dialyzer: Nipro Prime Volume (mL): 200 mL RO Machine Number: [id number] RO Machine Log Sheet Completed: Yes Machine Alarm Self Test: Completed, Passed (03/02/24 1030) Air Foam Detector: Tested, Proper Function, pH Reading Extracorporeal Circuit Tested for Integrity: Yes Machine Conductivity: 13.8 Manual Conductivity: 13.6 Machine Ph: 7 Manual Ph: 7 Bleach Test (Neg): Yes Bath Temperature: 36 C (96.8 F) Conductivity Meter Serial #: [id number] Machine Functioning Alarm Free? Yes Dialysis Bath: [...] and report given to Primary RN at 8296. Primary RN (First Initial, Last Name, Title): Rickie Birmingham RN Education Person Educated: Patient Knowledge Base: Minimal Barriers to Learning?: None Preferred method of Learning: Oral Topic(s): Access Care, Signs and Symptoms of Infection, Procedural, and Treatment Options Teaching Tools: Explanation Response to Education: Verbalized Understanding documented in this encounter [facility] 03-03-2024 Nurse Note Patient return from dialysis. Alert and oriented. Tele removed and IV Dc'd. States that she called family member for ride home and he is on the way [facility] 03-03-2024 Plan of care note Problem: Pain - Adult Goal: Verbalizes/displays adequate comfort level or baseline comfort level 03/03/2024 1751 by Rickie Birmingham RN Outcome: [...] 1005 by Rickie Birmingham RN Outcome: Progressing [facility] 03-03-2024 Miscellaneous Notes Problem: Pain - Adult Goal: Verbalizes/displays adequate comfort level or baseline comfort level 03/03/2024 1751 by Rickie Birmingham RN Outcome: [...] Limits Permission given to speak with patient public service representative/caregiver as indicated: Confirmation of Payer with patient/family: Yes Payer Name: HU[employer]NA MEDICARE ADVANTAGE/HUMANA MEDICARE [place]: No Confirmation of Primary Care Physician: Confirmed [...] Yes Pharmacy Used: [id number] - [place], [place] - [address] Medication Management: Independent Transportation/Shopping: Independent Transportation Mode: [...] improved Outcome: Progressing documented in this encounter [facility] 03-03-2024 Nurse Note Patient Name: Apoorva Gonzalez Patient : 1950 Acct: [id number] Date of Admission: 03/02/2024 Room/Bed: [facility] Code Status: Full Code Allergies: No [...] 138 03/03/2024520 K 5.0 03/03/2024520 CL 98 03/03/2024 0521 CO2 28 03/03/2024520 BUN 42 (H) 03/03/2024520 CREATININE 8.03 (H) 03/03/2024520 CALCIUM 8.3 (L) 03/03/2024520 PHOS 5.7 (H) 01/25/2024 0003 IV Drips and Rate/Dose Safety - Before each treatment: Dialysis Machine No.: [id number] Machine Number: [id number] Dialyzer Lot No.: [id number] Tubing Lot Number: [id number] All Connections Secure: Yes Venous Parameters Set: Yes Arterial Parameters Set: Yes NS Bag: Yes Saline Line Double Clamped: Yes Dialyzer: Nipro Prime Volume (mL): 200 mL RO Machine Number: [id number] RO Machine Log Sheet Completed: Yes Machine Alarm Self Test: Completed, Passed (0190) (03/03/24 155) Air Foam Detector: Tested, Proper Function Extracorporeal Circuit Tested for Integrity: Yes Machine Conductivity: 13.6 Manual Conductivity: 13.7 Machine Ph: 7 Manual Ph: 7 Bleach Test (Neg): Yes Bath Temperature: 36 C (96.8 F) Conductivity Meter Serial #: [id number] Machine Functioning Alarm Free? Yes Dialysis Bath: [...] Tools: Demonstration Response to Education: Verbalized Understanding [facility] [employer] 03-03-2024 History of Present illness Narrative [facility] Progress Note Nephrology following for ESRD [...] today anddch home -Please message me through [employer] chat with any questions or concerns. Please message me through [employer] chat with any questions or concerns. Sean Castaneda MD 03/03/2024 1:00 PM [facility] [address] [place] [address], [address] [place] [address] Office: [phone] Hospitalist Progress Note 03/03/2024 9:58 AM Subjective: [...] Low Potassium (Less than 3000 mg/day) @IODETAILS@ @[id number]@ Medications: amLODIPine, 10 mg, Oral, Daily atorvastatin, [...] Advance Directive: Full Code Magalys Can MD, [facility] Hospitalist documented in this encounter [facility] 03-03-2024 Note Formatting of this n ote might be different from the original. Care Managment Initial Assessment Date: 03/03/2024 Patient Name: Apoorva Gonzalez : 1950 Patient Information Source of Information: Patient Cognition/Language: WFL - Within Functional Limits Permission given to speak with patient public service representative/caregiver as indicated: Confirmation of Payer with patient/family: Yes Payer Name: HU[employer]NA MEDICARE ADVANTAGE/HUMANA MEDICARE [place]: No Confirmation of Primary Care Physician: Confirmed [...] Pharmacy Used: [id number] - [place], [place] - [address] Medication Management: Independent Transportation/Shopping: Independent Transportation Mode: Car Needs Assistance with Transportation at Discharge: No (Edward-friend) Meal Preparation: Independent Laundry/Cleaning: Independent Finances/Bill Paying: Independent Communication: Independent Types of Care Services/Equipment Utilized Care Services: (NA) Dialysis Type: Hemo Dialysis Provider Name/Location: [facility] Dialysis Schedule: //WED Transportation to Dialysis: [...] plan. Nephrology following. HD. Citlali Chu RN [facility] 03-03-2024 Note Formatting of this n ote might be different from the original. Care Managment Initial Assessment Date: 03/03/2024 Patient Name: Apoorva Gonzalez : 1950 Patient Information Source of Information: Patient Cognition/Language: WFL - Within Functional Limits Permission given to speak with patient public service representative/caregiver as indicated: Confirmation of Payer with [...] (NA) Dialysis Type: Hemo Dialysis Provider Name/Location: [facility] Dialysis Schedule: /WED Transportation to Dialysis: self [...] plan. Nephrology following. HD. Citlali Chu RN [facility] 03-03-2024 Plan of care note Problem: Pain [...] monitored and maintained or improved Outcome: Progressing [employer] [facility] 03-03-2024 Plan of care note Problem: Pain [...] monitored and maintained or improved Outcome: Progressing [facility] 03-02-2024 Consult note Formatting of is note is different from the original. [facility] Consult Note Consults HPI Apoorva Gonzalez [...] vomiting. Patient is TTS HD patient at [facility], with Dr. Meza as outpatient physics technical officer. Past Medical History: Diagnosis Date Chronic kidney disease (CKD) Hemodialysis patient (CMS/HCC) (HCC) Wednesday, , Wednesday History of blood transfusion 02/27/2022 Hypertension Seizure ([facility]) Developed seizure-like activity on 02/24 during [...] repeat in am Please message me through [employer] chat with any questions or concerns. Sean Castaneda MD 03/02/2024 12:51 PM [facility] [address] [place] [address], [address] [place] [address] Office: [phone] [facility] 03-02-2024 Consult note Formatting of th is note is different from the original. [facility] Consult Note Consults HPI Apoorva Gonzalez [...] vomiting. [facility], with Dr. Meza as outpatient physics technical officer. Past Medical History: Diagnosis Date Chronic kidney [...] concerns. Sean Castaneda MD 03/02/2024 12:51 PM [facility] [address] [place] [address], [address] [place] [id number] Office: [phone] documented in this encounter [facility] 03-02-2024 Nurse Note Patient Name: Apoorva Gonzalez Patient : 1950 Acct: [id number] Date of Admission: 03/02/2024 Room/Bed: [facility] B Code Status: Full Code Allergies: No [...] Primary RN (First Initial, Last Name, Title): [id number] Incapacitated Nurse Education Completed: Yes HBsAg ONLY: [...] - Before each treatment: Dialysis Machine No.: [id number] Machine Number: [id number] Dialyzer Lot No.: [id number] Tubing Lot Number: [id number] All Connections Secure: Yes Venous Parameters Set: Yes Arterial Parameters Set: Yes NS Bag: Yes Saline Line Double Clamped: Yes Dialyzer: Nipro Prime Volume (mL): 200 mL RO Machine Number: [id number] RO Machine Log Sheet Completed: Yes Machine Alarm Self Test: Completed, Passed (03/02/24 1030) Air Foam Detector: Tested, Proper Function, pH Reading Extracorporeal Circuit Tested for Integrity: Yes Machine Conductivity: 13.8 Manual Conductivity: 13.6 Machine Ph: 7 Manual Ph: 7 Bleach Test (Neg): Yes Bath Temperature: 36 C (96.8 F) Conductivity Meter Serial #: [id number] Machine Functioning Alarm Free? Yes Dialysis Bath: [...] and report given to Primary RN at 1350. Primary RN (First Initial, Last Name, Title): Rickie Birmingham RN Education Person Educated: Patient Knowledge Base: Minimal Barriers to Learning?: None Preferred method of Learning: Oral Topic(s): Access Care, Signs and Symptoms of Infection, Procedural, and Treatment Options Teaching Tools: Explanation Response to Education: Verbalized Understanding [facility] 03-02-2024 History and physical note Attending History [...] 01/25/2024 Performed by Chrissy Gilman MD at [facility] ENDOSCOPY IR CVC TUNNELED DIALYSIS CATHETER PLACEMENT 02/27/2022 IR CVC TUNNELED CATHETER PLACEMENT 02/27/2022 Candis Andrade MD [facility] SPECIAL PROCEDURES IR EMBOLIZATION 01/24/2024 IR EMBOLIZATION 01/24/2024 Jovan Glynn MD [facility] SPECIAL PROCEDURES Social History: Social [...] Ruggiero Mobile Relation: Significant Other Preferred language: Polish Law Librarian needed? No ADVANCED CARE PLANNING Apoorva Gonzalez : 1950 Primary Care Physician: Roxie Spain The patient and/or family/surrogate voluntarily agreed to participate in ACP services. Patient s cognitive capacity: AAOx3 Code Status: [X] [FULL CODE - Continue all advanced life support: CPR,intubation,invasive procedures] [_] [DNR-CCA - DO NOT do CPR, intubation] [_] [DNR-SIDE STITCHER - Comfort care only] [_] DNR form [was/was not] signed Total time spent: 5 minutes were spent discussing the patient's resuscitation status, advance care planning, and end of life care, with patient and/or family/surrogate. John Mayes DO Division of Hospitalist Medicine [facility] [employer] 03-02-2024 History and physical note Attending History [...] 01/25/2024 Performed by Chrissy Gilman MD at [facility] ENDOSCOPY IR CVC TUNNELED DIALYSIS CATHETER PLACEMENT 02/27/2022 IR CVC TUNNELED CATHETER PLACEMENT 02/27/2022 Candis Andrade MD [facility] SPECIAL PROCEDURES IR EMBOLIZATION 01/24/2024 IR EMBOLIZATION 01/24/2024 Jovan Glynn MD [facility] SPECIAL PROCEDURES Social History: Social [...] Matthews Mobile Relation: Grandchild Secondary Emergency Contact: BahmanEdward Mobile Relation: Significant Other Preferred language: Polish Law Librarian needed? No ADVANCED CARE PLANNING Apoorva Navarro Rajinder : 1950 Primary Care Physician: Roxie Spain The patient and/or family/surrogate voluntarily agreed to participate in ACP services. Patient s cognitive capacity: AAOx3 Code Status: [X] [FULL CODE - Continue all advanced life support: CPR,intubation,invasive procedures] [_] [DNR-CCA - DO NOT do CPR, intubation] [_] [DNR-SIDE STITCHER - Comfort care only] [_] DNR form [was/was not] signed Total time spent: 5 minutes were spent discussing the patient's resuscitation status, advance care planning, and end of life care, with patient and/or family/surrogate. John Mayes DO Division of Hospitalist Medicine [facility] documented in this encounter [facility] 03-02-2024 Plan of care note Problem: Pain [...] monitored and maintained or improved Outcome: Progressing [facility] 03-02-2024 Emergency department Note Pt in for transport to the floor. Orders states she can come off tele for transport. [facility] 03-02-2024 Emergency department Note Pt in for transport to the floor. Orders states she can come off tele for transport. Pt BGT was 57. Pt AxOx4. Oral glucose given Report from CYNTHIA Jim Pt 88% on RA in triage. Placed on 2L per [place] Emergency Department Encounter [facility] EMERGENCY DEPT Patient: Apoorva Gonzalez [...] 01/25/2024 Performed by Chrissy Gilman MD at [facility] ENDOSCOPY IR CVC TUNNELED DIALYSIS CATHETER PLACEMENT 02/27/2022 IR CVC TUNNELED CATHETER PLACEMENT 02/27/2022 Candis Andrade MD [facility] SPECIAL PROCEDURES IR EMBOLIZATION 01/24/2024 IR EMBOLIZATION 01/24/2024 Jovan Glynn MD [facility] SPECIAL PROCEDURES CURRENT MEDICATIONS Current [...] Abnormal Glucose 239 (*) Narrative: Performed by: [facility] [employer] [facility], [address] [place] [address] CLIA ID: [id number] POCT GLUCOSE METER UNSOLICITED RESULTS - Abnormal Glucose 57 (*) Narrative: Performed by: [facility] [employer] [facility], [address] [place] [address] CLIA ID: [id number] TROPONIN, WITH SERIAL REFLEX - Normal TROPONIN [...] - Normal Glucose 88 Narrative: Performed by: [facility] [employer] [facility], [address] [place] [address] CLIA ID: [id number] POCT GLUCOSE METER UNSOLICITED RESULTS - Normal Glucose 88 Narrative: Performed by: [facility] [employer] [facility], [address] [place] [address] CLIA ID: [id number] POCT GLUCOSE METER POCT GLUCOSE METER POCT GLUCOSE METER POCT GLUCOSE METER POCT GLUCOSE METER POCT GLUCOSE METER POCT GLUCOSE METER EKG: Sinus rhythm, rate 86, normal axis, NC interval 123, QTc 483, no ST segment elevations or depressions, no evidence of acute ischemia Encounter Date: 03/02/24 ECG 12 lead Result Value Heart Rate 86 QRSD Interval 96 QT Interval 404 QTC Interval 483 P Clayton 58 QRS Clayton 0 T Wave Clayton 51 NC Interval 123 Impression Sinus rhythm Probable left [...] 4:24 PM EST documented in this encounter [facility] 03-02-2024 Emergency department Note Pt BGT was 57. Pt AxOx4. Oral glucose given [facility] 03-02-2024 Emergency department Note Report from CYNTHIA Jim [facility] 03-02-2024 Emergency department Note Pt 88% on RA in triage. Placed on 2L per NC [facility] 03-02-2024 Physician Emergency department Note Emergency Department [...] [employer] Marcus Ragland DO 03/02/24 0645 [facility] [employer] Phone: 03-02-2024 Physician Emergency department Note EMERGENCY [...] 01/25/2024 Performed by Chrissy Gilman MD at [facility] ENDOSCOPY IR CVC TUNNELED DIALYSIS CATHETER PLACEMENT 02/27/2022 IR CVC TUNNELED CATHETER PLACEMENT 02/27/2022 Candis Andrade MD [facility] SPECIAL PROCEDURES IR EMBOLIZATION 01/24/2024 IR EMBOLIZATION 01/24/2024 Jovan Glynn MD [facility] SPECIAL PROCEDURES CURRENT MEDICATIONS Current [...] Abnormal Glucose 239 (*) Narrative: Performed by: [facility] [employer] [facility], [address] [place] [address] CLIA ID: [id number] POCT GLUCOSE METER UNSOLICITED RESULTS - Abnormal Glucose 57 (*) Narrative: Performed by: [facility], [address] [place] [address] CLIA ID: [id number] TROPONIN, WITH SERIAL REFLEX - Normal TROPONIN [...] - Normal Glucose 88 Narrative: [facility], [address] [place] [address] CLIA ID: [id number] POCT GLUCOSE METER UNSOLICITED RESULTS - Normal Glucose 88 Narrative: [facility]: [facility], [address] [place] [address] CLIA ID: [id number] POCT GLUCOSE METER POCT GLUCOSE METER POCT GLUCOSE METER POCT GLUCOSE METER POCT GLUCOSE METER POCT GLUCOSE METER POCT GLUCOSE METER EKG: Sinus rhythm, rate 86, normal axis, NC interval 123, QTc 483, no ST segment elevations or depressions, no evidence of acute ischemia Encounter Date: 03/02/24 ECG 12 lead Result Value Heart Rate 86 QRSD Interval 96 QT Interval 404 QTC Interval 483 P Clayton 58 QRS Clayton 0 T Wave Clayton 51 NC Interval 123 Impression Sinus rhythm Probable left [...] Ragland DO at 03/02/2024 4:24 PM EST [facility] 02-20-2024 Nurse Note RN reviewed discharge AVS with pt and pt verbalized understanding. Pt ambulated out independently to meet at entrance [facility] 02-20-2024 Nurse Note RN reviewed discharge AVS with pt and pt verbalized understanding. Pt ambulated out independently to meet at entrance documented in this encounter [facility] 02-20-2024 Hospital course Narrative Hospitalist Discharge Summary [...] Chronic kidney disease (CKD) Hemodialysis patient (CMS/HCC) ([facility]) Wednesday, , Wednesday History of blood [...] B-1 250 MG tablet Recommended Follow-up: Roxie Spain [address] [place] [address] Schedule an appointment as soon as possible for a visit in 1 week(s) Complexity of Follow up: [] Moderate Complexity: follow up within 7-14 calendar days (21364) [x] Severe Complexity: follow up within 7 calendar days (85972) Follow up Testing, Pending results or Referrals [...] Geoff Gonsales MD Division of Hospitalist Medicine [facility] 02/20/2024, 3:01 PM documented in this encounter [facility] 02-20-2024 History of Present illness Narrative [facility] Progress Note Patient is a 73 [...] including ESRD, HTN, seizure who presented with [facility] following for ESRD. ESRD -patient on [...] Ok for Discharge Please message me through EPIC chat with any questions or concerns. Pipe Soto MD 02/20/2024 2:08 PM [facility] [address], [address] [place] [address] Office: [phone] [facility] Respiratory Care Department Progress Note As part [...] of this patient, documented in this encounter [facility] 02-20-2024 Plan of care note Problem: Excessive [...] other facility with appropriate resources Outcome: Progressing [facility] 02-20-2024 Miscellaneous Notes Problem: Excessive Fluid Volume [...] resources Outcome: Progressing documented in this encounter [facility] 02-19-2024 Emergency department Note Patient taken to floor. Respirations even and unlabored. No acute distress noted. AXO x 4 and vitals obtained, stable for tx. [facility] 02-19-2024 Emergency department Note Patient taken to floor. Respirations even and unlabored. No acute distress noted. AXO x 4 and vitals obtained, stable for tx. Report from CYNTHIA Law. Report given to Gertrude MARIE Emergency Department Encounter [facility] EMERGENCY DEPT Patient: Apoorva Gonzalez [...] DO 02/19/24 0533 documented in this encounter [facility] 02-19-2024 Emergency department Note Report from CYNTHIA Law. [facility] 02-19-2024 Emergency department Note Report given to Gertrude MARIE [facility] 02-19-2024 Consult note Associated Order (s): Inpatient consult to Nephrology [facility] Consult Note Inpatient consult to Nephrology [...] Date Chronic kidney disease (CKD) Hemodialysis patient ([facility]/HCC) (HCC) Wednesday, , Wednesday History of blood transfusion 02/27/2022 Hypertension Seizure ([facility]) Developed seizure-like activity on 02/24 during [...] HTN, seizure who presented with [facility]. Nephrology following for ESRD. ESRD -patient on [...] concerns. Pipe Soto MD 02/19/2024 1:38 PM [facility] [address] [place] [address], [address] [place] [address] Office: [phone] [facility] 02-19-2024 Consult note Associated Order (s): Inpatient consult to Nephrology [facility] Consult Note Inpatient consult to Nephrology [...] History of blood transfusion 02/27/2022 Hypertension Seizure ([facility]) Developed seizure-like activity on 02/24 during [...] HTN, seizure who presented with [facility]. Nephrology following for ESRD. ESRD -patient on [...] concerns. Pipe Soto MD 02/19/2024 1:38 PM [facility] [address], [address] [place] [id number] Office: [phone] documented in this encounter [facility] 02-19-2024 History and physical note Attending History [...] 01/25/2024 Performed by Chrissy Gilman MD at [facility] ENDOSCOPY IR CVC TUNNELED DIALYSIS CATHETER PLACEMENT 02/27/2022 IR CVC TUNNELED CATHETER PLACEMENT 02/27/2022 Candis Andrade MD [facility] SPECIAL PROCEDURES IR EMBOLIZATION 01/24/2024 IR EMBOLIZATION 01/24/2024 Jovan Glynn MD [facility] SPECIAL PROCEDURES Social History: Social [...] Ruggiero Mobile Relation: Significant Other Preferred language: Polish Law Librarian needed? No Secondary Emergency Contact: Mayur Matthews Mobile Relation: Grandoneida [employer] Apoorva Navarro [place] : 1950 Primary Care Physician: Roxie Spain The patient and/or family/surrogate voluntarily agreed to participate in ACP services. Patient s cognitive capacity: alert and oriented Code Status: [x_] [FULL CODE - Continue all advanced life support: CPR,intubation,invasive procedures] [_] [DNR-CCA - DO NOT do CPR, intubation] [_] [DNR-SIDE STITCHER - Comfort care only] [_] DNR form [...] Kevin DO Division of Hospitalist Medicine [facility] [employer] Phone: 02-19-2024 History and physical note Attending [...] 01/25/2024 Performed by Chrissy Gilman MD at [facility] ENDOSCOPY IR CVC TUNNELED DIALYSIS CATHETER PLACEMENT 02/27/2022 IR CVC TUNNELED CATHETER PLACEMENT 02/27/2022 Candis Andrade MD [facility] SPECIAL PROCEDURES IR EMBOLIZATION 01/24/2024 IR EMBOLIZATION 01/24/2024 Jovan Glynn MD [facility] SPECIAL PROCEDURES Social History: Social [...] Ruggiero Mobile Relation: Significant Other Preferred language: Polish Law Librarian needed? No Secondary Emergency Contact: Mayur Matthews Mobile Relation: Grandchild [employer] Apoorva Gonzalez : 1950 Primary Care Physician: Roxie Judit The patient and/or family/surrogate voluntarily agreed to participate in ACP services. Patient s cognitive capacity: alert and oriented Code Status: [x_] [FULL CODE - Continue all advanced life support: CPR,intubation,invasive procedures] [_] [DNR-CCA - DO NOT do CPR, intubation] [_] [DNR-SIDE STITCHER - Comfort care only] [_] DNR form [was/was not] signed Summary of discussion: The patient health care POA/ surrogate is the following: significant other Edward Ruggiero and grandbere Matthews ( c/s SW to assist with [...] Kevin DO Division of Hospitalist Medicine [facility] documented in this encounter [facility] 02-19-2024 Physician Emergency department Note Emergency Department Encounter [facility] EMERGENCY DEPT Patient: Apoorva Gonzalez [...] [employer] Cassie Mace DO 02/19/24 0533 [employer] Phone: 02-12-2024 Emergency department Note EMERGENCY DEPARTMENT [...] otherwise acutely negative except as in the [place]. PAST MEDICAL HISTORY Past Medical History: Diagnosis Date Chronic kidney disease (CKD) Hemodialysis patient ([facility]/HCC) (HCC) Wednesday, , Wednesday History of blood transfusion 02/27/2022 Hypertension Seizure ([facility]) Developed seizure-like activity on 02/24 during hospital admission SURGICAL HISTORY Past Surgical History: Procedure Laterality Date AV FISTULA PLACEMENT Left 08/07/2022 COLONOSCOPY N/A 01/25/2024 Performed by Chrissy Gilman MD at [facility] ENDOSCOPY IR CVC TUNNELED DIALYSIS CATHETER PLACEMENT 02/27/2022 IR CVC TUNNELED CATHETER PLACEMENT 02/27/2022 Candis Andrade MD [facility] SPECIAL PROCEDURES IR EMBOLIZATION 01/24/2024 IR EMBOLIZATION 01/24/2024 Jovan Glynn MD [facility] SPECIAL PROCEDURES CURRENT MEDICATIONS Discharge [...] Triage Vitals Temp Heart Rate Resp BP 11/09/24 1156 02/12/24 1156 02/12/24 1156 02/12/24 1156 [...] dc PATIENT REFERRED TO: Roxie Spain [address] [facility] [address] Schedule an appointment as soon [...] oriented x's 4 documented in this encounter [facility] 02-12-2024 Emergency department Triage note Treated with medication, pt took it this morning and was high. Pt was able to ambulate without difficulty. Alert and oriented x's 4 [facility] 02-12-2024 Physician Emergency department Note EMERGENCY DEPARTMENT [...] otherwise acutely negative except as in the [place]. PAST MEDICAL HISTORY Past Medical History: Diagnosis Date Chronic kidney disease (CKD) Hemodialysis patient (CMS/HCC) (HCC) Wednesday, , Wednesday History of blood transfusion 02/27/2022 Hypertension Seizure (HCC) Developed seizure-like activity on 02/24 during hospital admission SURGICAL HISTORY Past Surgical History: Procedure Laterality Date AV FISTULA PLACEMENT Left 08/07/2022 COLONOSCOPY N/A 01/25/2024 Performed by Chrissy Gilman MD at [facility] ENDOSCOPY IR CVC TUNNELED DIALYSIS CATHETER PLACEMENT 02/27/2022 IR CVC TUNNELED CATHETER PLACEMENT 02/27/2022 Candis Andrade MD [facility] SPECIAL PROCEDURES IR EMBOLIZATION 01/24/2024 IR EMBOLIZATION 01/24/2024 Jovan Glynn MD [facility] SPECIAL PROCEDURES CURRENT MEDICATIONS Discharge [...] Physician [facility] RAD[facility]OLOGY (Per Emergency Physician): Interpretation per the [...] dc PATIENT REFERRED TO: Roxie Spain [address] [place] [id number] Schedule an appointment as soon as possible [...] Medicine Provider Marcus Ragland DO 02/12/24 1448 [facility] 01-25-2024 History of Present illness Narrative [facility] Progress Note Nephrology following for ESRD. [...] concerns. Fabrizio Scott MD 01/25/2024 11:09 PM [facility] [address] [place] [address], [address] [place] [address] Office: [phone] Hospitalist Progress Note 01/25/2024 9:54 AM [phone]: Please page me for patient care issues. [phone]: Please page IMS night Hospitalist for any issues. Subjective: Admit Date: 01/19/2024 PCP: Roxie Spain Room#: Endo Pool/NONE Interval History: 73 y.o. F with a PMHx significant for ESRD on HD (T//), HTN, hx seizures (not currently on anti-epileptic therapy) who was initially admitted to the [facility] 01/18 for anemia 2/2 descending colonic [...] on 02/24 during hospital admission NPO diet @[id number]@ Medications: [Transfer Hold] amLODIPine, 5 mg, Oral, [...] RuggieroEdward Mobile Relation: Significant Other Preferred language: Polish Law Librarian needed? No Secondary Emergency Contact: Deshawn Crystal Mobile Relation: Brother Law Librarian needed? No Advance Directive: Full Code Anticipated Discharge - -1021 - Location - Home - Pending the following -pending clinical course, hemoglobin stabilization, Total time spent (which include face to face and non face to face encounters) : 30 minutes Leticia Collier MD,MD Division of Hospitalist Medicine Images from the original note were not included. PHYSICAL THERAPY [facility] Initial Evaluation Name/MRN: Apoorva Gonzalez ([id number]) Evaluation Date: 01/24/2024 Date of : 1950 Admission Date: 01/19/2024 5:28 PM Age: 73 y.o. Room/Bed: [facility] B Discharge Recommendation: Home with assist [...] Date Chronic kidney disease (CKD) Hemodialysis patient ([facility]/HCC) (HCC) Wednesday, , Wednesday History of blood transfusion 02/27/2022 Hypertension Seizure ([facility]) Developed seizure-like activity on 02/24 during [...] Responsibilities: Independent Receives Help From: None Active Product Tester Fiberglass: Yes Prior Level of Function Prior Level [...] of Care supervision is transferred to a [facility] Therapy Services Physical Therapist. Goals and/or treatment plan was established in collaboration with patient/family/other representatives. Cosigned by Rosey Damico PT at 01/24/2024 1:24 PM EDT Hospitalist Progress Note 01/24/2024 8:55 AM [phone]: Please page me for patient care issues. [phone]: Please page IMS night Hospitalist for any issues. Subjective: Admit Date: 01/19/2024 PCP: Roxie Spain Room#: W6-622/W6-622 B Interval History: 73 y.o. F with a PMHx significant for ESRD on HD (//), HTN, hx seizures (not currently on anti-epileptic therapy) who was initially admitted to the [facility] 01/18 for anemia 2/2 descending colonic [...] Date Chronic kidney disease (CKD) Hemodialysis patient ([facility]/HCC) (HCC) Wednesday, , Wednesday History of blood transfusion 02/27/2022 Hypertension Seizure ([facility]) Developed seizure-like activity on 02/24 during hospital admission NPO diet @[id number]@ Medications: amLODIPine, 5 mg, Oral, Daily pantoprazole, [...] Ruggiero Mobile Relation: Significant Other Preferred language: Polish Law Librarian needed? No Secondary Emergency Contact: Deshawn Crystal Mobile Relation: Brother Law Librarian needed? No Advance Directive: Full Code Anticipated Discharge - Date -TBD - Location - Home - Pending the following -pending clinical course, workup, colonoscopy Total time spent (which include face to face and non face to face encounters) : 30 minutes Leticia Collier MD,MD Division of Hospitalist Medicine Images from the original note were not included. OCCUPATIONAL THERAPY [facility] Initial Evaluation Name/MRN: Apoorva Gonzalez ([id number]) Evaluation Date: 01/24/2024 Date of : 1950 Admission Date: 01/19/2024 5:28 PM Age: 73 y.o. Room/Bed: [facility] B Discharge Recommendation: Home with assist [...] History of blood transfusion 02/27/2022 Hypertension Seizure ([facility]) Developed seizure-like activity on 02/24 during hospital admission Past Surgical History: Past Surgical History: Procedure Laterality Date AV FISTULA PLACEMENT Left 08/07/2022 IR CVC TUNNELED DIALYSIS CATHETER PLACEMENT 02/27/2022 IR CVC TUNNELED CATHETER PLACEMENT 02/27/2022 Candis Andrade MD [facility] SPECIAL PROCEDURES Admission Diagnosis: Patient [...] Responsibilities: Independent Receives Help From: None Active Product Tester Fiberglass: Yes Prior Level of Function Prior Level [...] Modified Independent Functional mobility: Modified Independent Patient OK for sit-stand from EOB x 2 attempts. Patient ambulated to commode in bathroom with no device and OK. Patient transferred on/off commode with no grab [...] of Care supervision is transferred to a [facility] Services Occupational Therapist. Goals and/or treatment plan was established in collaboration with patient/family/other representatives. [facility] Progress Note Nephrology following for ESRD. Events over night: Doing well-Overnight -HD did well. Patient also received non-urgent HD yesterday afternoon (on / schedule). BP 145/74 Pulse 87 Temp 36.6 [...] concerns. Sean Castaneda MD 01/23/2024 12:09 PM [facility] [address] [place] [address], [address] [place] [address] Office: [phone] ICU Progress Note Name: Apoorva Gonzalez : 1950(73 y.o.) Date: 01/23/24 Team: MICU Attending: Dr. Schneider Subjective: Hospital Summary: 73 y.o. F with a PMHx significant for ESRD on HD (T//), HTN, hx seizures (not currently on anti-epileptic therapy) who was initially admitted to the [facility] 01/18 for anemia 2/2 descending colonic [...] Vitals: BP MAP 153/70 (01/23/24 0507) 95 (01/23/24506) Arterial BP MAP 122/49 (01/21/24 0206) Temp 36.9 C (98.4 F) (01/23/24506) Pulse 89 (01/23/24 050) Resp 20 (01/23/24506) SpO2 99 % (01/23/24506) Weight 53.1 kg (117 lb 1 oz) (01/22/24 0009) BMI Body mass index is 20.09 kg/m . I/O: 01/21 700 - 01/22 659 In: 420 [P.O.:120; I.V.:300] Out: - Invasive [...] Normal [] Scar/Lesion/Mass Inspection of teeth/lips/gums Dentition: [][place] Teeth []Dentures Lips/Gums: [x]Intact []Lesion Present Mucosa: [x][place] []Moist []Dry Neck: External Appearance Overall Appearance: [...] displayed. ABGs: No results for input(s): "PHART", "EHP2GES", "PO2ART", "TFU5TIT", "SO2ART", "K3TTBRBB" in the last 72 hours. Lactic Acid: [...] PO DVT Prophylaxis: SCDs Disposition: Transfer to [facility] Cosigned by Ronald Schneider DO at 01/23/2024 6:50 PM EDT Associated attestation - Ronald Schneider DO - 01/23/2024 6:50 PM EDT I have personally performed a [id number]-no-wbza diagnostic evaluation on this patient on date of service 01/23/24. History, labs, imaging studies, and electronic medical record have been reviewed by me. This note documented by the []Critical Care Fellow [x]camp housekeeper []CRISTO reflects my history, exam, and medical [...] members and physicians, excluding procedures. [facility] Progress Note Nephrology following for ESRD. Events over night: Doing well-Overnight -HD did well. Patient also received non-urgent HD yesterday afternoon (on / schedule). BP (!) 164/69 Pulse 87 Temp [...] last 7 days Lab Units 01/22/24 0010 01/20/248 01/19/24 1747 SODIUM mmol/L 133* < > [...] today did well Please message me through [employer] chat with any questions or concerns. Sean Castaneda MD 01/22/2024 4:22 PM [facility] [address] [place] [address], [address] [place] [address] Office: [phone] ICU Transfer Checklist Transfer Med Reconciliation (resume home meds if able, convert to PO if able) Complete Antibiotics (name, indication, duration, convert to PO if able) None Steroid (indication, duration, convert to PO if able) None Anticipated Emet Medications (ICU initiated) or Dose Changes and [...] therapy) who was initially admitted to the [facility] 01/18 for anemia 2/2 descending colonic [...] kg/m . I/O: 01/20 0700 - 01/21 659 In: 985 [P.O.:850; I.V.:135] Out: 1 [Urine:1] Invasive Lines / Tubes / Drains: Peripheral IV 10/16/24 Anterior;Right Forearm (Active) Number of days: 1 [...] Normal [] Scar/Lesion/Mass Inspection of teeth/lips/gums Dentition: [][place] Teeth []Dentures Lips/Gums: [x]Intact []Lesion Present Mucosa: [x][place] []Moist []Dry Neck: External Appearance Overall Appearance: [...] 0.5 ALKPHOS 88 Glucose: Recent Labs 01/19/24 17401/20/248 01/21/24 0036 01/22/24 0010 GLUCOSE 146* 116* [...] displayed. ABGs: No results for input(s): "PHART", "IGA9UMP", "PO2ART", "XPI1YLS", "SO2ART", "J2EFVSPH" in the last 72 hours. Lactic Acid: [...] Leukocytosis - improving ESRD (HD //) Constipation Hx HTN Presyncope 2/2 blood loss [...] PO DVT Prophylaxis: SCDs Disposition: Transfer to [facility] Cosigned by Ronald Schneider DO at 01/22/2024 1:39 PM EDT Associated attestation - Ronald Schneider DO - 01/22/2024 1:39 PM EDT I have personally performed a [id number]-wk-reqw diagnostic evaluation on this patient on date of service 01/22/24. History, labs, imaging studies, and electronic medical record have been reviewed by me. This note documented by the []Critical Care Fellow [x]camp housekeeper []CRISTO reflects my history, exam, and medical [...] members and physicians, excluding procedures. [facility] Progress Note Nephrology following for ESRD. [...] last 7 days Lab Units 01/21/24 0036 01/20/248 01/19/24 1747 SODIUM mmol/L 135 < > [...] concerns. Sean Castaneda MD 01/21/2024 3:32 PM [facility] [address], [address] [place] [address] Office: [phone] Nutrition Assessment Type and Reason for Visit: [...] loss Fluid Accumulation: No significant fluid accumulation Automotive Specialty Technician Strength: Not Performed Nutrition Assessment: Pt with PMH including ESRD on HD (//), HTN, Hx seizures presented to [facility] ED 01/19/24 due to 10 [...] (kg): 54.4 kg Total Energy Requirements (kcals/day): 1482-4706 Weight Used for Protein Requirements: Current (1.2-1.4 [...] Weight: (112# on 01/08/23, 110# on 08/09/23) [place] Body Weight (lbs) (Calculated): 120 lbs [place] Body Weight (Kg) (Calculated): 55 kg % [place] Body Weight (Calculated): 95 % BMI (kg/m2) [...] inadequate protein-energy intake as evidenced by BMI ([id number]-fpu-teb) Nutrition Interventions: Food and/or Nutrient Delivery: Continue [...] Nutrition Supplement Maren Warner RD, LD Contact: *[phone] or via [employer] chat ICU Progress Note Name: Apoorva Gonzalez [...] Normal [] Scar/Lesion/Mass Inspection of teeth/lips/gums Dentition: [][place] Teeth []Dentures Lips/Gums: []Intact []Lesion Present Mucosa: [][place] []Moist []Dry Neck: External Appearance Overall Appearance: [...] 24 hours- BMP: Recent Labs 01/19/24 1747 01/20/24 0348 [...] BILITOT 0.5 ALKPHOS 88 Glucose: Recent Labs 01/19/24174601/20/248 01/21/24 0036 GLUCOSE 146* 116* 85 Procal: No results for input(s): "PROCAL" in the last 72 hours. CBC: Recent Labs 01/19/24174601/19/24 2349 01/20/248 01/20/24 0958 01/21/24 0036 01/21/24 0058 01/21/24 0618 [...] displayed. ABGs: No results for input(s): "PHART", "RPE7VMX", "PO2ART", "OOP8CPV", "SO2ART", "D5ZMIZLZ" in the last 72 hours. Lactic Acid: [...] PM EDT I have personally performed a tddl-dl-eaef diagnostic evaluation on this patient on date of service 01/21/24. History, labs, imaging studies, and electronic medical record have been reviewed by me. This note documented by the []Critical Care Fellow [x]camp housekeeper []CRISTO reflects my history, exam, and medical [...] 73 y.o. female who was admitted to [facility] on 01/18. Pt presented to the ED [...] 73 y.o. female who was admitted to [facility] on 01/19/2024 for GI bleed. - Successful [...] 73 F with PMH ESRD on HD (//), HTN, Hx seizures who presented to [facility] ED 01/18 due to 10 [...] Normal [] Scar/Lesion/Mass Inspection of teeth/lips/gums Dentition: [][place] Teeth []Dentures Lips/Gums: []Intact []Lesion Present Mucosa: [][place] []Moist []Dry Neck: External Appearance Overall Appearance: [...] CBC: Recent Labs 01/19/24174601/19/24 2349 01/20/2434701/20/24 0958 WBC 15.9* -- 20.1* -- HGB 7.7* 9.5* 8.5* 7.9* HCT 24.4* 28.4* 24.9* 23.4* PLT 465* -- 285 -- MCV 93.5 -- 89.2 -- RDW 16.7* -- 15.6* -- ABGs: No results for input(s): "PHART", "TOB4MBJ", "PO2ART", "ZEO0TDL", "SO2ART", "E3QBXWOD" in the last 72 hours. Lactic Acid: [...] colonic bleed Diverticulitis? Leukocytosis ESRD, on HD (T//S) Hx HTN Presyncope 2/2 blood loss anemia [...] Leukocytosis Trend: 15.9> 20.1 ESRD, on HD (//) Nephro consulted for IP dialysis Presyncope 2/2 [...] --change PO keppra to IV while NPO. PYRIDINE RECOVERY OPERATOR: SCHNEIDER Preferred Method of Communication/Reaching: EPIC. The above physician should be contacted w/ questions/concerns about items being managed by ICU Team. If there are any questions or concerns related to the info in this note please contact the treatment team or the on-call science instructor directly. I spent 30 minutes of critical [...] this consult. Signed: Tylor Nelson MD Nephrology [facility] ([facility], [facility]) Pager: [phone] Office Office documented in this encounter [facility] 01-25-2024 Plan of care note Problem: Knowledge [...] 100 by Lenka Adkins RN Outcome: Progressing Goal: [...] comfort level or baseline comfort level 01/25/2024 171 by Lenka Adkins RN Outcome: [...] 1006 by Lenka Adkins RN Outcome: Progressing [facility] 01-25-2024 Miscellaneous Notes Problem: Knowledge Deficit [...] Problem: Problem Interventions Goal: Assess Nutritional Intake 01/25/2024 1716 by Lenka Adkins RN Outcome: Adequate for Discharge 01/25/2024 1006 by Lenka Adkins RN Outcome: Progressing Problem: Pain - Adult Goal: Verbalizes/displays adequate comfort level or baseline comfort level 01/25/2024 171 by Lenka Adkins RN Outcome: [...] Please call the Main Endoscopy Dept at [phone] for questions. Report called to CYNTHIA Og on 6W. [facility] Name: Apoorva Gonzalez Procedure Date: 01/25/2024 8:33 AM Gender: Female Date of : 1950 Age: 73 Admit Type: Inpatient Note Status: Finalized Endoscopist: Chrissy Gilman MD, [id number] Procedure: Colonoscopy Indications: Rectal bleeding, Acute post [...] immediate complications. Procedure Code(s): --- Professional --- 30088, Colonoscopy, flexible; diagnostic, including collection of specimen(s) by brushing or washing, when performed (separate procedure) --- Technical --- 86480, Colonoscopy, flexible; diagnostic, including collection of specimen(s) [...] or abscess without bleeding CPT copyright 2021 [employer]. All rights reserved. The codes documented in this report are preliminary and upon senior regulatory affairs specialist review may be revised to meet current [...] overnight, iHD per outpatient schedule (T/H/S at [facility]) sheath to be removed and PT/OT evals pending. DCP-home with no anticipated needs. Length of Stay (Days): 2 GMLOS: 4.5 Care Managment Initial Assessment Date: 01/20/2024 Patient Name: Apoorva Gonzalez : 1950 Patient Information Source of Information: Patient Cognition/Language: WFL - Within Functional Limits Permission given to speak with patient public service representative/caregiver as indicated: Yes Confirmation of Payer with patient/family: Yes [facility] : No Confirmation of Primary Care [...] Services: Dialysis Type: Hemo Dialysis Provider Name/Location: [facility] Schedule: Transportation to Dialysis: drives [...] prescription coverage, drives self to HD at [facility], will have a ride home and denies discharge needs. Christine Ribeiro RN documented in this encounter [facility] 01-25-2024 Hospital Discharge instructions Leticia Collier MD - 01/25/2024 5:14 PM EDT No nsaids,no seeds, avoid constipation Leticia Collier MD - 01/25/2024 5:03 PM EDT Up as able Leticia Collier MD - 01/25/2024 5:03 PM EDT Soft diet documented in this encounter [facility] 01-25-2024 Hospital course Narrative Discharge Summary Apoorva [...] therapy) who was initially admitted to the [facility] 01/18 for anemia 2/2 descending colonic [...] These medications were sent to [id number] [place] [facility] [address] [facility] [address] polyethylene glycol (PEG) 3350 17 g packet DIET: Adult diet Dysphagia - Soft and Bite Sized; Low Potassium (Less than 3000 mg/day) ACTIVITY: No restriction. COMPLEXITY OF FOLLOW UP: [] Moderate Complexity: follow up within 7-14 calendar days (83756) [] Severe Complexity: follow up within 7 calendar days (19031) FOLLOW UP TESTING, PENDING RESULTS OR REFERRALS AT TRANSITIONAL CARE VISIT: [] Yes [] No PENDING STUDIES: DISPOSITION: Home FACILITY/HOME CARE AGENCY NAME: Follow up with [facility] [place] [id number] [facility] [id number] Follow up cbc in 2 days on [...] 01/25/2024, 5:06 PM documented in this encounter [facility] 01-25-2024 Nurse Note Patient Name: Apoorva Gonzalez Patient : 1950 Acct: [id number] Date of Admission: 01/19/2024 Room/Bed: [facility] B Code Status: Full Code Allergies: [...] - Before each treatment: Dialysis Machine No.: [id number] RO Machine Number: [id number] Dialyzer Lot No.: [id number] Tubing Lot Number: [id number] All Connections Secure: Yes Venous Parameters Set: Yes Arterial Parameters Set: Yes NS Bag: Yes Saline Line Double Clamped: Yes Dialyzer: Nipro Prime Volume (mL): 200 mL RO Machine Number: [id number] RO Machine Log Sheet Completed: Yes Machine Alarm Self Test: Completed, Passed (1250) (01/25/24 1254) Air Foam Detector: Tested, Proper Function, pH Reading Extracorporeal Circuit Tested for Integrity: Yes Machine Conductivity: 13.6 Manual Conductivity: 13.6 Machine Ph: 7 Manual Ph: 7.4 Bleach Test (Neg): Yes Bath Temperature: 36 C (96.8 F) Conductivity Meter Serial #: [id number] Machine Functioning Alarm Free? Yes Dialysis Bath: K+ (Potassium): 2 Ca+ (Calcium): 2.5 Na+ (Sodium): 137 HCO3 (Bicarb): 32 Bicarbonate Concentrate Lot No.: [id number] Acid Concentrate Lot No.: [id number] Chlorine Testing - Before each treatment and every 4 hours: Time On: 1259 Time Off: 1559 Treatment Goal: 3 Weight Height: 162.6 cm (5' 4") (01/25/24 08) Weight: 52.2 kg (115 lb) (01/25/24826) BMI [...] 100 % -- -- 01/24/24 1830 (!) 170 -- -- 94 18 100 % -- -- 01/24/24 1815 (!) 178 -- -- 94 20 100 % -- -- 01/24/24 1800 (!) 17372 -- -- 93 20 100 % -- -- 01/24/24 1745 (!) 170/66 -- -- 91 18 100 % -- -- 01/24/24 1734 (!) 168/65 36.4 C (97.5 F) Temporal 95 18 100 % -- -- 01/24/241715 157/76 -- -- 98 15 99 % -- -- 01/24/241714 -- -- -- -- -- 91 % -- -- 01/24/241713 -- -- -- 94 (!) 11 -- -- -- 01/24/24 1710 158/75 -- -- 95 (!) 10 100 % -- -- 01/24/24 1705 156/65 -- -- 97 12 100 % -- -- 01/24/241699 157/72 -- -- 102 14 99 % -- -- 01/24/24 1655 (!) 162/72 -- -- 97 (!) 7 100 % -- -- 01/24/24 165 155/72 -- -- 98 13 99 % -- -- 01/24/241644 152/72 -- -- 101 15 99 % [...] Tools: Explanation Response to Education: Verbalized Understanding [facility] 01-25-2024 Nurse Note Patient Name: Apoorva Gonzalez Patient : 1950 Acct: [id number] Date of Admission: 01/19/2024 Room/Bed: [facility] B Code Status: Full Code Allergies: [...] - Before each treatment: Dialysis Machine No.: [id number] RO Machine Number: [id number] Dialyzer Lot No.: [id number] Tubing Lot Number: [id number] All Connections Secure: Yes Venous Parameters Set: Yes Arterial Parameters Set: Yes NS Bag: Yes Saline Line Double Clamped: Yes Dialyzer: Nipro Prime Volume (mL): 200 mL RO Machine Number: [id number] RO Machine Log Sheet Completed: Yes Machine Alarm Self Test: Completed, Passed (1250) (01/25/241253) Air Foam Detector: Tested, Proper Function, pH Reading Extracorporeal Circuit Tested for Integrity: Yes Machine Conductivity: 13.6 Manual Conductivity: 13.6 Machine Ph: 7 Manual Ph: 7.4 Bleach Test (Neg): Yes Bath Temperature: 36 C (96.8 F) Conductivity Meter Serial #: [id number] Machine Functioning Alarm Free? Yes Dialysis Bath: K+ (Potassium): 2 Ca+ (Calcium): 2.5 Na+ (Sodium): 137 HCO3 (Bicarb): 32 Bicarbonate Concentrate Lot No.: [id number] Acid Concentrate Lot No.: [id number] Chlorine Testing - Before each treatment and [...] 95 18 100 % -- -- 01/24/24 171 157/76 -- -- 98 15 99 % [...] Education: Verbalized Understanding Patient arrived from room [facility], Dr. Suárez in to speak with the [...] message with any questions. Radha Lopes RN, CWCN Patient Name: Apoorva Gonzalez Patient : 1950 Acct: [id number] Date of Admission: 01/19/2024 [facility] A Code Status: DNR-CCA Allergies: No [...] (0) 3 Regular None (Room air) Clear [place] Warm;Dry Good Soft;Rounded Active Other (Comment) None [...] - Before each treatment: Dialysis Machine No.: [id number] RO Machine Number: [id number] Dialyzer Lot No.: [id number] Tubing Lot Number: [id number] All Connections Secure: Yes Venous Parameters Set: Yes Arterial Parameters Set: Yes NS Bag: Yes Saline Line Double Clamped: Yes Dialyzer: Nipro Prime Volume (mL): 200 mL RO Machine Number: [id number] RO Machine Log Sheet Completed: Yes Machine Alarm Self Test: Completed, Passed (10/19/24 1537) Air Foam Detector: pH Reading Extracorporeal Circuit Tested for Integrity: Yes Machine Conductivity: 13.7 Manual Conductivity: 13.8 Machine Ph: 7 Manual Ph: 7.6 Bleach Test (Neg): Yes Bath Temperature: 36 C (96.8 F) Conductivity Meter Serial #: [id number] Machine Functioning Alarm Free? Yes Dialysis Bath: K+ (Potassium): 2 Ca+ (Calcium): 2.5 Na+ (Sodium): 137 HCO3 (Bicarb): 32 Bicarbonate Concentrate Lot No.: [id number] Acid Concentrate Lot No.: [id number] Chlorine Testing - Before each treatment and every 4 hours: Time On: 1515 Time Off: 1844 Treatment Goal: 0-3 liters uf as tolerated, [...] Name: Apoorva Gonzalez Patient : 1950 Acct: [id number] Date of Admission: 01/19/2024 Room/Bed: T1-126/T1-126 A [...] (0) 3 Regular None (Room air) Clear [place] Warm;Dry;No swelling Soft Active -- -- -- [...] - Before each treatment: Dialysis Machine No.: [id number] RO Machine Number: [id number] Dialyzer Lot No.: [id number] Tubing Lot Number: [id number] All Connections Secure: Yes Venous Parameters Set: Yes Arterial Parameters Set: Yes NS Bag: Yes Saline Line Double Clamped: Yes Dialyzer: Nipro Prime Volume (mL): 200 mL RO Machine Number: [id number] RO Machine Log Sheet Completed: Yes Machine Alarm Self Test: Completed, Passed (1444) (01/20/241444) Air Foam Detector: pH Reading, Proper Function, Tested Extracorporeal Circuit Tested for Integrity: Yes Machine Conductivity: 13.8 Manual Conductivity: 13.7 Machine Ph: 7 Manual Ph: 7 Bleach Test (Neg): Yes Bath Temperature: 36 C (96.8 F) Conductivity Meter Serial #: [id number] Machine Functioning Alarm Free? Yes Dialysis Bath: [...] -- -- 109 14 100 % -- 01/20/241744 116/65 -- -- 110 -- -- -- [...] -- -- 95 18 100 % -- 01/19/244 -- -- -- 94 22 100 % [...] (98.9 F) -- 96 12 -- -- 01/19/24 195 125/71 37.1 C (98.8 F) -- 101 [...] vitals (Patient's BP dropped to 66/40 (47), air route traffic controller immediately stopped pulling fluid. BP started coming back up. Patient also became nauseated, dizzy, and having abdominal cramping. Dr. Richardson to see patient.) Provider Name: Dr. Richardson Provider Role: Resident Method of Communication: Call Response: En route Notification Time: 1635 Shift Event: Fall Reason for Communication: Abnormal vitals (Patient's BP dropped to 66/40 (47), air route traffic controller immediately stopped pulling fluid. BP started coming [...] monitors were placed. documented in this encounter [facility] 01-25-2024 Plan of care note Problem: Problem Interventions Goal: Assess Nutritional Intake Outcome: Progressing Problem: Pain - Adult Goal: Verbalizes/displays adequate comfort level or baseline comfort level Outcome: Progressing Problem: Discharge Planning Goal: Discharge to home or other facility with appropriate resources Outcome: Progressing [facility] 01-25-2024 Note Formatting of this n ote might be different from the original. POST ENDOSCOPY PROCEDURE TRANSFER REPORT Physician: Procedure completed: colonoscopy Specimens obtained: n/a Medications administered: see anesthesia note Findings: see physician's note Complications: n/a Please call the Main Endoscopy Dept at [phone] for questions. Report called to CYNTHIA Og on 6W. [facility] 01-25-2024 Note Formatting of this n ote might be different from the original. POST ENDOSCOPY PROCEDURE TRANSFER REPORT Physician: Procedure completed: colonoscopy Specimens obtained: n/a Medications administered: see anesthesia note Findings: see physician's note Complications: n/a Please call the Main Endoscopy Dept at [phone] for questions. Report called to CYNTHIA Og on 6W. [facility] 01-25-2024 Note Formatting of this n ote might be different from the original. [facility] Name: Apoorva Gonzalez Procedure Date: 01/25/2024 8:33 AM Gender: Female Date of : 1950 Age: 73 Admit Type: Inpatient Note Status: Finalized Endoscopist: Chrissy Gilman MD, [id number] Procedure: Colonoscopy Indications: Rectal bleeding, Acute post [...] immediate complications. Procedure Code(s): --- Professional --- 13521, Colonoscopy, flexible; diagnostic, including collection of specimen(s) by brushing or washing, when performed (separate procedure) --- Technical --- 36378, Colonoscopy, flexible; diagnostic, including collection of specimen(s) [...] or abscess without bleeding CPT copyright 2021 [employer]. All rights reserved. The codes documented in this report are preliminary and upon senior regulatory affairs specialist review may be revised to meet current compliance requirements. Chrissy Gilman MD 01/25/2024 10:02:22 AM This report has been signed electronically. Number of Addenda: 0 Note Initiated On: 01/25/2024 8:33 AM [employer] Work Phone: 01-25-2024 Note Formatting of this n ote might be different from the original. [facility] Name: Apoorva Gonzalez Procedure Date: 01/25/2024 8:33 AM Gender: Female Date of : 1950 Age: 73 Admit Type: Inpatient Note Status: Finalized Endoscopist: Chrissy Gilman MD, [id number] Procedure: Colonoscopy Indications: Rectal bleeding, Acute post [...] immediate complications. Procedure Code(s): --- Professional --- 38615, Colonoscopy, flexible; diagnostic, including collection of specimen(s) by brushing or washing, when performed (separate procedure) --- Technical --- 63867, Colonoscopy, flexible; diagnostic, including collection of specimen(s) [...] or abscess without bleeding CPT copyright 2021 [employer]. All rights reserved. The codes documented in this report are preliminary and upon senior regulatory affairs specialist review may be revised to meet current compliance requirements. Chrissy Gilman MD 01/25/2024 10:02:22 AM This report has been signed electronically. Number of Addenda: 0 Note Initiated On: 01/25/2024 8:33 AM [employer] Work Phone: 01-25-2024 Plan of care note [...] Goal: Free from fall injury Outcome: Progressing [employer] 01-24-2024 Note Formatting of this n ote might be different from the original. Spoke with Dr Collier-patients admitting team-ordered patient to have 10mg hydralazine q6 for SBP>160 [facility] 01-24-2024 Note Formatting of this n ote might be different from the original. Spoke with Dr Collier-patients admitting team-ordered patient to have 10mg hydralazine q6 for SBP>160 [facility] 01-24-2024 Note Formatting of this n ote might be different from the original. Dr Glynn paged regarding post procedure BP's. [facility] 01-24-2024 Note Formatting of this n ote might be different from the original. Dr Glynn paged regarding post procedure BP's. [facility] 01-24-2024 Nurse Note Patient arrived from room [facility], Dr. Suárez in to speak with the patient regarding mesenteric embo, consent obtained. Patient was placed supine on exam table prepped and draped in sterile fashion. Telemetry monitors placed, conscious sedation administered. Patient tolerated procedure well. Transfer back to room. [facility] 01-24-2024 Note Formatting of this [...] notified. PARK Baker CNP 01/24/2024 1:51 PM [employer] Phone: 01-24-2024 Note Formatting of this n [...] notified. PARK Baker CNP 01/24/2024 1:51 PM [employer] Phone: 01-24-2024 Plan of care note Problem: Pain - Adult Goal: Verbalizes/displays adequate comfort level or baseline comfort level Outcome: Progressing Problem: Safety - Adult Goal: Free from fall injury Outcome: Progressing Problem: Chronic Conditions and Co-morbidities Goal: Patient's chronic conditions and co-morbidity symptoms are monitored and maintained or improved Outcome: Progressing [employer] 01-24-2024 Note Formatting of this n ote might be different from the original. Chart reviewed. Patient transferred from ICU to med/surg floor 01/22. +increased bloody bowel movements over night with Hgb 6.4 this AM. Patient received 1U PRBC. Nuclear med bleeding scan today. Current discharge plan is home once medically stable. TCC to continue to follow. [facility] 01-24-2024 Note Formatting of this n ote might be different from the original. Chart reviewed. Patient transferred from ICU to med/surg floor 01/22. +increased bloody bowel movements over night with Hgb 6.4 this AM. Patient received 1U PRBC. Nuclear med bleeding scan today. Current discharge plan is home once medically stable. TCC to continue to follow. [facility] 01-24-2024 Nurse Note Wound Care consulted for Pressure Injury Prevention. Pt's Arnol= 22, pt is no longer at risk. Skin Care Precaution order set in place. Dietitian consult in place. Will continue to follow peripherally. Please voicera or secure chat message with any questions. Radha Lopes RN, CWCN [facility] 01-23-2024 Plan of care note Problem: [...] Goal: Assess Nutritional Intake Outcome: Progressing T [facility] 01-23-2024 Plan of care note Problem: Potential for Compromised Skin Integrity Goal: Skin Integrity is Maintained or Improved Outcome: Progressing Problem: Potential for Compromised Skin Integrity Goal: Nutritional status is improving Outcome: Progressing Problem: Urinary Incontinence Goal: Perineal skin integrity is maintained or improved Outcome: Progressing [facility] 01-23-2024 Consult note Associated Order (s): [...] Oral, q6h PRN, 650 mg at 01/22/24 5180 OR acetaminophen (Tylenol) suppository 650 mg, 650 mg, Rectal, q6h PRN, Jessica Murphy DO amLODIPine (Norvasc) tablet 5 mg, 5 mg, Oral, Daily, Mounikaangy Connell DO, 5 mg at 01/23/24 0810 [...] History of blood transfusion 02/27/2022 Hypertension Seizure ([facility]) Past Surgical History: Social History Socioeconomic [...] DTR Dr Kaur Endoscopic Review None on [facility] or Care Everywhere IMPRESSION/RECOMMENDATIONS: Acute normocytic anemia- [...] Jo MD at 01/24/2024 11:46 AM EDT [facility] 01-23-2024 Consult note Associated Order (s): IP [...] past medical history of CKD on hemodialysis T//S, HTN, seizure who presents with blood in [...] 17 g, 17 g, Oral, Daily, Mounika Connell, DO, 17 g at 01/23/24 0811 senna-docusate [...] Date Chronic kidney disease (CKD) Hemodialysis patient ([facility]/HCC) (HCC) History of blood transfusion 02/27/2022 Hypertension Seizure ([facility]) Past Surgical History: Social History Socioeconomic [...] DTR Dr Kaur Endoscopic Review None on [facility] or Care Everywhere IMPRESSION/RECOMMENDATIONS: Acute normocytic anemia- [...] EDT Associated Order(s): IP CONSULT TO NEPHROLOGY [facility] [place] [address] [place], [place] [id number] Consult Note Patient's Name: Apoorva Gonzalez 9:14 AM 01/20/2024 Reason for Consult: ESRD History of Present Ilness: Apoorva Gonzalez is a 73 y.o. female with hx including ESRD, HTN, seizure who presented with blood in stool. Went to IR, but embolization was not done due to no active bleeding, femoral artery sheath was left in place. Patient is TTS HD patient at [facility], with Dr. Meza as outpatient physics technical officer. Patient denied SOB. Past Medical History: Diagnosis [...] 89.2 PLT 465* -- 285 Recent Labs 01/19/24174601/20/24 0348 NA 135 132* K 4.9 5.3* [...] as documented in his note. Please call [phone] or message me through [employer] with any questions or concerns. Images from the original note were not included. Internal Medicine: MICU Initial Consult Name: Apoorva Gonzalez : 1950(73 y.o.) Date: 01/20/24 Attending: Dr. Delgado Subjective: Chief Complaint: Rectal bleeding HPI: Apoorva Gonzalez is a 73 y.o. F with a PMHx significant for ESRD on HD (//), HTN, Hx seizures, who presented to [facility] ED on 01/19/2024 due to [...] mg by mouth daily. 03/02/22 03/02/23 PARK iLpscomb CNP atorvastatin (Lipitor) 40 MG tablet Take [...] Normal [] Scar/Lesion/Mass Inspection of teeth/lips/gums Dentition: [][place] Teeth []Dentures Lips/Gums: [x]Intact []Lesion Present Mucosa: [x][place] [x]Moist []Dry Neck: External Appearance Overall Appearance: [...] within last 24 hours- BMP: Recent Labs 01/19/247 NA 135 K 4.9 CL 92* CO2 [...] 16.7* ABGs: No results for input(s): "PHART", "DDS1HZK", "PO2ART", "GWW3CFU", "SO2ART", "B8DTOADW" in the last 72 hours. Lactic Acid: [...] Acute descending colonic bleed ESRD, on HD (T//) Hx HTN Presyncope 2/2 blood loss anemia [...] since. GI Prophylaxis: Pantoprazole IV DVT [facility]: [facility] BMI Classification: Body mass index is 19.05 [...] ESRD on iHD, HTN who presented to [facility] ED with complaints of BRBPR. [...] family and physicians. documented in this encounter [facility] 01-23-2024 Plan of care note The patient is Moderately Stable - Low risk of patient condition declining or worsening [facility] 01-22-2024 Nurse Note Patient Name: Apoorva Gonzalez Patient : 1950 Acct: [id number] Date of Admission: 01/19/2024 Room/Bed: T1126/Rust126 A Code Status: DNR-CCA Allergies: No Known [...] Primary RN (First Initial, Last Name, Title): Joes Andrea RN Incapacitated Nurse Education Completed: Yes [...] (0) 3 Regular None (Room air) Clear [place] Warm;Dry Good Soft;Rounded Active Other (Comment) None [...] - Before each treatment: Dialysis Machine No.: [id number] RO Machine Number: [id number] Dialyzer Lot No.: [id number] Tubing Lot Number: [id number] All Connections Secure: Yes Venous Parameters Set: Yes Arterial Parameters Set: Yes NS Bag: Yes Saline Line Double Clamped: Yes Dialyzer: Nipro Prime Volume (mL): 200 mL RO Machine Number: [id number] RO Machine Log Sheet Completed: Yes Machine Alarm Self Test: Completed, Passed (01/22/241536) Air Foam Detector: pH Reading Extracorporeal Circuit Tested for Integrity: Yes Machine Conductivity: 13.7 Manual Conductivity: 13.8 Machine Ph: 7 Manual Ph: 7.6 Bleach Test (Neg): Yes Bath Temperature: 36 C (96.8 F) Conductivity Meter Serial #: [id number] Machine Functioning Alarm Free? Yes Dialysis Bath: K+ (Potassium): 2 Ca+ (Calcium): 2.5 Na+ (Sodium): 137 HCO3 (Bicarb): 32 Bicarbonate Concentrate Lot No.: [id number] Acid Concentrate Lot No.: [id number] Chlorine Testing - Before each treatment and every 4 hours: Time On: 1515 Time Off: 1844 Treatment Goal: 0-3 liters uf as tolerated, keeping SBP >100 Weight Height: 162.6 cm (5' 4") (01/21/24 0963) Weight: 53.1 kg (117 lb 1 oz) [...] Explanation Response to Education: Verbalized Understanding T [facility] 01-22-2024 Plan of care note [...] Interventions Goal: Assess Nutritional Intake Outcome: Progressing [facility] 01-21-2024 Plan of care note Problem: [...] Interventions Goal: Assess Nutritional Intake Outcome: Progressing [facility] 01-21-2024 Note Formatting of this n ote might be different from the original. Care Management Progress Note Patient remains in CTV ICU with GI bleed/acute blood anemia. VSS, on RA, in NSR on tele, transfused PRBC again overnight, iHD per outpatient schedule (T/H/S at [facility]) sheath to be removed and PT/OT evals pending. DCP-home with no anticipated needs. Length of Stay (Days): 2 GMLOS: 4.5 T [facility] 01-21-2024 Note Formatting of this n ote might be different from the original. Care Management Progress Note Patient remains in CTV ICU with GI bleed/acute blood anemia. VSS, on RA, in NSR on tele, transfused PRBC again overnight, iHD per outpatient schedule (T/H/S at [facility]) sheath to be removed and PT/OT evals pending. DCP-home with no anticipated needs. Length of Stay (Days): 2 GMLOS: 4.5 [facility] 01-20-2024 Nurse Note Patient Name: Apoorva Gonzalez Patient : 1950 Acct: [id number] Date of Admission: 01/19/2024 Room/Bed: T1-126/T1-126 A [...] Date of Last Dressing Change: N/A N/A , [address]?: N/A Red [...] (0) 3 Regular None (Room air) Clear [place] Warm;Dry;No swelling Soft Active -- -- -- -- Labs Lab Results Component Value Date/Time WBC 20.1 (H) 01/20/2024347 HGB 7.3 (L) 01/20/2024 1509 HCT 21.3 (L) 01/20/2024 1509 PLT 285 01/20/2024347 NA 132 (L) 01/20/2024347 K 5.3 (H) 01/20/2024347 CL 97 (L) 01/20/2024347 CO2 27 01/20/2024347 BUN 50 (H) 01/20/2024347 CREATININE 8.34 (H) 01/20/2024347 CALCIUM 7.2 (L) 01/20/2024347 PHOS 6.4 (H) 01/20/2024 0348 IV Drips and Rate/Dose Safety - Before each treatment: Dialysis Machine No.: [id number] RO Machine Number: [id number] Dialyzer Lot No.: [id number] Tubing Lot Number: [id number] All Connections Secure: Yes Venous Parameters Set: Yes Arterial Parameters Set: Yes NS Bag: Yes Saline Line Double Clamped: Yes Dialyzer: Nipro Prime Volume (mL): 200 mL RO Machine Number: [id number] RO Machine Log Sheet Completed: Yes Machine Alarm Self Test: Completed, Passed (1445) (01/20/24 1445) Air Foam Detector: pH Reading, Proper Function, Tested Extracorporeal Circuit Tested for Integrity: Yes Machine Conductivity: 13.8 Manual Conductivity: 13.7 Machine Ph: 7 Manual Ph: 7 Bleach Test (Neg): Yes Bath Temperature: 36 C (96.8 F) Conductivity Meter Serial #: [id number] Machine Functioning Alarm Free? Yes Dialysis Bath: [...] -- -- 109 18 100 % -- 10/17/24 1645 132/68 -- -- 105 -- -- [...] vitals (Patient's BP dropped to 66/40 (47), air route traffic controller immediately stopped pulling fluid. BP started coming back up. Patient also became nauseated, dizzy, and having abdominal cramping. Dr. Richardson to see patient.) Provider Name: Dr. Richardson Provider Role: Resident Method of Communication: Call Response: En route Notification Time: 1635 Shift Event: Fall Reason for Communication: Abnormal vitals (Patient's BP dropped to 66/40 (47), air route traffic controller immediately stopped pulling fluid. BP started coming [...] Tools: Explanation Response to Education: Verbalized Understanding [facility] 01-20-2024 Note Formatting of this n ote might be different from the original. Care Managment Initial Assessment Date: 01/20/2024 Patient Name: Apoorva Gonzalez : 1950 Patient Information Source of Information: Patient Cognition/Language: WFL - Within Functional Limits Permission given to speak with patient public service representative/caregiver as indicated: Yes Confirmation of Payer [...] Living Prescription Coverage: Yes Pharmacy Used: [facility] [address] Medication Management: Independent Transportation/Shopping: Independent Transportation Mode: Car Needs Assistance with Transportation at Discharge: No Meal Preparation: Independent Laundry/Cleaning: Independent Finances/Bill Paying: Independent Communication: Independent Types of Care Services/Equipment Utilized Care Services: Dialysis Type: Hemo Dialysis Provider Name/Location: [facility] Dialysis Schedule: Transportation to Dialysis: drives [...] prescription coverage, drives self to HD at [facility], will have a ride home and denies discharge needs. Christine Ribeiro RN [facility] 01-20-2024 Note Formatting of this n ote might be different from the original. Care Managment Initial Assessment Date: 01/20/2024 Patient Name: Apoorva Gonzalez : 1950 Patient Information Source of Information: Patient Cognition/Language: WFL - Within Functional Limits Permission given to speak with patient public service representative/caregiver as indicated: Yes Confirmation of Payer with patient/family: Yes Payer Name: [facility] Medicare [place]: No Confirmation of Primary Care Physician: Confirmed [...] Daily Living Prescription Coverage: Yes Pharmacy Used: [facility] [address] Medication Management: Independent Transportation/Shopping: Independent Transportation Mode: Car Needs Assistance with Transportation at Discharge: No Meal Preparation: Independent Laundry/Cleaning: Independent Finances/Bill Paying: Independent Communication: Independent Types of Care Services/Equipment Utilized Care Services: Dialysis Type: Hemo Dialysis Provider Name/Location: [facility] Dialysis Schedule: Transportation to Dialysis: drives [...] prescription coverage, drives self to HD at [facility], will have a ride home and denies discharge needs. Christine Ribeiro RN [facility] 01-20-2024 Consult note Associated Order (s): IP CONSULT TO NEPHROLOGY [facility] [address] [place] [address] Consult Note Patient's Name: Apoorva Navarro Rajinder 9:14 AM 01/20/2024 Reason for Consult: ESRD History of Present Ilness: Apoorva Gonzalez is a 73 y.o. female with hx including ESRD, HTN, seizure who presented with blood in stool. Went to IR, but embolization was not done due to no active bleeding, femoral artery sheath was left in place. Patient is TTS HD patient at [facility], with Dr. Meza as outpatient physics technical officer. Patient denied SOB. Past Medical History: Diagnosis [...] edema appreciated Labs: Recent Labs 01/19/24174601/19/24 2349 01/20/248 WBC 15.9* -- 20.1* HGB 7.7* [...] Output -- Net 430 ml IV Intake: [place]: Assessment: Apoorva Gonzalez is a 73 y.o. [...] as documented in his note. Please call [phone] or message me through [employer] with any questions or concerns. [facility] 01-20-2024 Consult note Formatting of th is [...] (T//S), HTN, Hx seizures, who presented to [facility] ED on 01/19/2024 due to [...] Date Chronic kidney disease (CKD) Hemodialysis patient ([facility]) ([facility]) Wednesday, , Wednesday History of blood transfusion 02/27/2022 Hypertension Seizure ([facility]) Developed seizure-like activity on 02/24 during [...] Normal [] Scar/Lesion/Mass Inspection of teeth/lips/gums Dentition: [][place] Teeth []Dentures Lips/Gums: [x]Intact []Lesion Present Mucosa: [x][place] [x]Moist []Dry Neck: External Appearance Overall Appearance: [...] 16.7* ABGs: No results for input(s): "PHART", "GZN9JNC", "PO2ART", "UPF9ZOD", "SO2ART", "J9DZAFQN" in the last 72 hours. Lactic Acid: [...] ESRD on iHD, HTN who presented to [facility] ED with complaints of BRBPR. [...] other team members, patient's family and physicians. [employer] Work Phone: 01-19-2024 Nurse Note Patient tolerated the procedure well. Transfer to T126 following the procedure. [employer] 01-19-2024 History and physical note Attending History [...] 8.7 ANIONGAP 13 LIVER PROFILE: Recent Labs 01/19/241746 AST 23 ALT 14 BILITOT 0.5 ALKPHOS [...] DO Division of Hospitalist Medicine Inpatient Medical Services/[facility] [employer] Phone: 01-19-2024 History and physical note Attending [...] ANIONGAP 13 LIVER PROFILE: Recent Labs 01/19/24 174 AST 23 ALT 14 BILITOT 0.5 ALKPHOS [...] Relation: Grandchild Jessica Murphy DO Division of Hospitalrust Medicine Inpatient Medical Services/[facility] documented in this encounter [facility] 01-19-2024 Nurse Note Patient arrived from the emergency department for mesenteric angiogram with possible intervention. Dr. Andrade in to speak with the patient regarding the procedure, and consent was obtained. Patient's lab values and allergies were reviewed. Patient was placed supine on exam table, prepped and draped in sterile fashion. Telemetry monitors were placed. [facility] 01-19-2024 Emergency department Note Patient in no apparent distress. Respirations equal and nonlabored. Lala Ni RN 01/19/242215 [facility] 01-19-2024 Emergency department Note Patient in no apparent distress. Respirations equal and nonlabored. Lala Ni RN 01/19/242215 Patient in IR at this time. Lala Ni RN 01/19/242209 Patients 15 minute samra for vitals not documented as patient was being transported to IR. Lala Ni RN 01/19/24 2210 Second unit of blood started at 600 [...] ED provider notified Tyra Garcia RN 01/19/24 9212 EMERGENCY DEPARTMENT ENCOUNTER Pt Name: Apoorva Gonzalez [...] TUNNELED CATHETER PLACEMENT 02/27/2022 Candis Andrade MD [facility] SPECIAL PROCEDURES CURRENT MEDICATIONS Previous [...] Response: Oriented Best Motor Response: Follows commands [place] Coma Scale Score: 15 PHYSICAL EXAM ED Triage Vitals Temp Heart Rate Resp BP 01/19/24 1708 01/19/24 1708 01/19/24 1708 01/19/24 170 36.9 C (98.4 F) 101 16 128/68 [...] AND HEMATOCRIT, BLOOD PREPARE RBC PRODUCT CODE G9909R98 Unit Number [id number] Unit ABO O Unit RH POS Crossmatch interpretation COMP Dispense Status Transfused Blood Expiration Date Product Blood Type 5100 Unit Volume 300 PRODUCT CODE C8699W04 Unit Number [id number] Unit ABO O Unit RH POS Crossmatch interpretation COMP Dispense Status Transfused Blood Expiration Date Product Blood Type 5100 Unit Volume 300 All other labs were within normal range or not returned as of this dictation. EMERGENCY DEPARTMENT COURSE and DIFFERENTIAL DIAGNOSIS/MDM: Vitals: Vitals: 01/19/24 2300 01/19/24 2305 01/19/24 2310 01/19/24 2315 BP: (!) 149/71 (!) 147/82 139/73 139/71 BP Location: Patient Position: Pulse: 99 95 95 95 Resp: 18 (!) 11 17 18 Temp: TempSrc: SpO2: 100% 100% 100% 100% Weight: Height: Diagnoses as of 01/19/249 Gastrointestinal hemorrhage, unspecified gastrointestinal hemorrhage type The [...] Kaur DO 01/19/242318 documented in this encounter [facility] 01-19-2024 Emergency department Note Patient in IR at this time. Lala Ni RN 01/19/242209 [facility] 01-19-2024 Emergency department Note Patients 15 minute samra for vitals not documented as patient was being transported to IR. Lala Ni RN 01/19/242209 [facility] 01-19-2024 Emergency department Note Second unit of blood started at 600 mLs/hr per Dr Kaur. Pt being transported to IR by CYNTHIA Reeves. Olivia Rodgers RN 01/19/242150 [facility] 01-19-[address] Kaur called IR to do procedure. Blood transfusion going at 300 mLs an hour per Dr Kaur. Pt changed up again and large clots and blood noted. Olivia Rodgers RN 01/19/242126 [facility] 01-19-2024 Emergency department Note Report to Oilvia Camejo RN 01/19/241923 [facility] 01-19-2024 Emergency department Note Pt taken to CT scan. Dr Kaur made aware pt had another large passing of blood clots. Order to be received for blood tranfusion Tameka Camejo RN 01/19/24 1905 [facility] 01-19-2024 Emergency department Note Trauma float at bedside for ultrasound IV Tameka Camejo RN 01/19/24 1808 [facility] 01-19-2024 Emergency department Note Large clots noted from pts rectum. States she has been bleeding and having clots since this morning. Denies being on a blood thinner. Does not have any abd pain but has pressure when having a bowel movement. Provider called to bedside for assessment Tameka Camejo RN 01/19/24 1740 [facility] 01-19-2024 Emergency department Note Patient was in [...] ED provider notified Tyra Garcia RN 01/19/24 7438 T [facility] 01-19-2024 Physician Emergency department Note EMERGENCY DEPARTMENT [...] History of blood transfusion 02/27/2022 Hypertension Seizure ([facility]) Developed seizure-like activity on 02/24 during hospital admission SURGICAL HISTORY Past Surgical History: Procedure Laterality Date AV FISTULA PLACEMENT Left 08/07/2022 IR CVC TUNNELED DIALYSIS CATHETER PLACEMENT 02/27/2022 IR CVC TUNNELED CATHETER PLACEMENT 02/27/2022 Candis Andrade MD [facility] SPECIAL PROCEDURES CURRENT MEDICATIONS Previous [...] Response: Oriented Best Motor Response: Follows commands [place] Coma Scale Score: 15 PHYSICAL EXAM ED [...] AND HEMATOCRIT, BLOOD PREPARE RBC PRODUCT CODE [id number] Unit Number [id number] Unit ABO O Unit RH POS Crossmatch interpretation COMP Dispense Status Transfused Blood Expiration Date Product Blood Type 5100 Unit Volume 300 PRODUCT CODE [id number] Unit Number [id number] Unit ABO O Unit RH POS Crossmatch [...] Brown Kaur DO 01/19/242127 Brown Kaur DO 01/19/249 [facility] 08-09-2023 Emergency department Note Pt remains in dialysis Regi Galdamez RN 08/09/23 190 [facility] 08-09-2023 Emergency department Note Pt remains in dialysis Regi Galdamez RN 08/09/23 190 Lab called with potassium 6.1 with no hemolysis, same reported to Dr. Velasquez via secure chat Jenn Adams RN 08/09/23 1650 Pt taken to dialysis Regi Galdamez RN 08/09/23 1638 documented in this encounter [facility] 08-09-2023 Nurse Note Patient Name: Aporova Gonzalez Patient : 1950 Acct: [id number] Date of Admission: 08/09/2023 Room/Bed: Code Status: [...] Date/Time WBC 8.6 03/03/2023938 HGB 10.6 (L) 03/03/2023 09 HCT 32.3 (L) 03/03/2023 09 PLT 351 03/03/2023 0939 NA 135 08/09/2023 1606 K 6.1 (HH) 08/09/2023 1606 CL 99 08/09/2023 1606 CO2 21 (L) 08/09/2023 1606 BUN 65 (H) 08/09/2023 1606 CREATININE 9.07 (H) 08/09/2023 1606 CALCIUM 9.5 08/09/2023 1606 PHOS 6.9 (H) 08/09/2023 1606 IV Drips and Rate/Dose Safety - Before each treatment: Dialysis Machine No.: [id number] RO Machine Number: [id number] Dialyzer Lot No.: [id number] Tubing Lot Number: [id number] All Connections Secure: Yes Venous Parameters Set: Yes Arterial Parameters Set: Yes NS Bag: Yes Saline Line Double Clamped: Yes Dialyzer: Revaclear 300 Prime Volume (mL): 200 mL RO Machine Number: [id number] RO Machine Log Sheet Completed: Yes Machine Alarm Self Test: Completed, Passed (08/09/231614) Air Foam Detector: Tested, Proper Function, pH Reading Extracorporeal Circuit Tested for Integrity: Yes Machine Conductivity: 13.6 Manual Conductivity: 13.6 Manual Ph: 7 Bleach Test (Neg): Yes Bath Temperature: 36 C (96.8 F) Conductivity Meter Serial #: [id number] Machine Functioning Alarm Free? Yes Dialysis Bath: [...] uf off bfr 300 poor art flow. 08/09/231944 300 mL/min 830 ml/hr -200 mmHg 180 [...] -- 100 -- -- -- -- 08/09/23 170 (!) 157/84 -- -- 92 -- -- [...] Tools: Demonstration Response to Education: Verbalized Understanding [facility] 08-09-2023 Nurse Note Patient Name: Apoorva Gonzalez Patient : 1950 Acct: [id number] Date of Admission: 08/09/2023 Room/Bed: Code Status: [...] and functional @ bedside) Second Clinician Verifying: W. Steinlechner, Rn Time out performed prior to access [...] - Before each treatment: Dialysis Machine No.: [id number] RO Machine Number: [id number] Dialyzer Lot No.: [id number] Tubing Lot Number: [id number] All Connections Secure: Yes Venous Parameters Set: Yes Arterial Parameters Set: Yes NS Bag: Yes Saline Line Double Clamped: Yes Dialyzer: Revaclear 300 Prime Volume (mL): 200 mL RO Machine Number: [id number] RO Machine Log Sheet Completed: Yes Machine Alarm Self Test: Completed, Passed (08/09/23 161) Air Foam Detector: Tested, Proper Function, pH Reading Extracorporeal Circuit Tested for Integrity: Yes Machine Conductivity: 13.6 Manual Conductivity: 13.6 Manual Ph: 7 Bleach Test (Neg): Yes Bath Temperature: 36 C (96.8 F) Conductivity Meter Serial #: [id number] Machine Functioning Alarm Free? Yes Dialysis Bath: [...] stable rmvd 1636 alert on phone. 08/09/23 191 350 mL/min 830 ml/hr -230 mmHg 200 [...] -- -- 86 -- -- -- -- 05/06/24 1915 (!) 151/74 -- -- 90 -- [...] Education: Verbalized Understanding documented in this encounter [facility] 08-09-2023 Emergency department Note Lab called with potassium 6.1 with no hemolysis, same reported to Dr. Velasquez via secure chat Jenn Adams RN 08/09/23 1650 [facility] 08-09-2023 Emergency department Note Pt taken to dialysis Regi Galdamez RN 08/09/23 1638 [facility] 08-09-2023 Consult note Formatting of th is note is different from the original. [facility] [address] [place] [address] Consult Note Patient's Name: Apoorva Gonzalez 4:37 PM 08/09/2023 History of Present Ilness: Apoorva Gonzalez is a 73 y.o. female with hx including ESRD, is TTS HD patient at [facility]. Dr. Meza is outpatient physics technical officer. Was found to have 8.0K on outpatient labwork on 08/06 (likely collected prior to HD that day). Was referred to ER in relation to hyperkalemia. Denied SOB. Past Medical History: Diagnosis Date Chronic kidney disease (CKD) Hemodialysis patient (CMS/HCC) (HCC) Wednesday, , Wednesday History of blood transfusion 02/27/2022 Hypertension Seizure ([facility]) Developed seizure-like activity on 02/24 during hospital admission Past Surgical History: Procedure Laterality Date AV FISTULA PLACEMENT Left 08/07/2022 IR CVC TUNNELED DIALYSIS CATHETER PLACEMENT 02/27/2022 IR CVC TUNNELED CATHETER PLACEMENT 02/27/2022 Candis Andrade MD [facility] SPECIAL PROCEDURES Family History Problem [...] as documented in his note. Please call [phone] or message me through [employer] with any questions or concerns. :[employer] Phone: 08-09-2023 Consult note Formatting of th is note is different from the original. [facility] [address] [place] [address] Consult Note Patient's Name: Apoorva Gonzalez 4:37 PM 08/09/2023 History of Present Ilness: Apoorva Gonzalez is a 73 y.o. female with hx including ESRD, is TTS HD patient at [facility]. Dr. Meza is outpatient physics technical officer. Was found to have 8.0K on outpatient labwork on 08/06 (likely collected prior to HD that day). Was referred to ER in relation to hyperkalemia. Denied SOB. Past Medical History: Diagnosis Date Chronic kidney disease (CKD) Hemodialysis patient ([facility]/HCC) (HCC) Wednesday, , Wednesday History of blood transfusion 02/27/2022 Hypertension Seizure ([facility]) Developed seizure-like activity on 02/24 during hospital admission Past Surgical History: Procedure Laterality Date AV FISTULA PLACEMENT Left 08/07/2022 IR CVC TUNNELED DIALYSIS CATHETER PLACEMENT 02/27/2022 IR CVC TUNNELED CATHETER PLACEMENT 02/27/2022 Candis Andrade MD [facility] SPECIAL PROCEDURES Family History Problem [...] as documented in his note. Please call [phone] or message me through [employer] with any questions or concerns. documented in this encounter [facility] 03-03-2023 Emergency department Note Pt discharged to home alert by CRISTO Rocha Tracey L. Harper, RN 03/03/23 105 [facility] 03-03-2023 Emergency department Note Pt discharged to home alert by CRISTO Rocha Tracey L. Harper, RN 03/03/23 105 Emergency Department Encounter [facility] EMERGENCY DEPT Patient: Apoorva Gonzalez [...] dictating provider for clarification) Balta Wang MD [employer] Balta Wang MD 03/03/23 1055 EMERGENCY DEPARTMENT [...] Date Chronic kidney disease (CKD) Hemodialysis patient ([facility]/HCC) ([facility]) Wednesday, , Wednesday History of blood transfusion 02/27/2022 Hypertension Seizure ([facility]) Developed seizure-like activity on 02/24 during [...] Procedures FINAL IMPRESSION 1. ESRD on hemodialysis ([facility]) ([facility]) DISPOSITION Discharge 03/03/2023 10:40:48 AM PATIENT REFERRED TO: [place], [address] [address] DISCHARGE MEDICATIONS: Discharge Medication List as of [...] Angel 03/03/23 1108 documented in this encounter [facility] 03-03-2023 Hospital Discharge instructions FREDI Del Angel [...] or worsening symptoms. documented in this encounter [facility] 03-03-2023 Physician Emergency department Note Emergency Department Encounter [facility] EMERGENCY DEPT Patient: Apoorva Gonzalez [...] for clarification) Balta Wang MD Acute Care [facility] Balta Wang MD 03/03/23 1050 [employer] Phone: 03-03-2023 Physician Emergency department Note EMERGENCY [...] Date Chronic kidney disease (CKD) Hemodialysis patient ([facility]/HCC) (HCC) Wednesday, , Wednesday History of blood transfusion 02/27/2022 Hypertension Seizure ([facility]) Developed seizure-like activity on 02/24 during [...] Procedures FINAL IMPRESSION 1. ESRD on hemodialysis ([facility]) ([facility]) DISPOSITION Discharge 03/03/2023 10:40:48 AM PATIENT REFERRED TO: Christiano Grove DO [address] [facility] [address] DISCHARGE MEDICATIONS: Discharge Medication List as of [...] Medicine Provider FREDI Del Angel 03/03/23 1108 [facility] 10-01-2022 Emergency department Note Wound care completed. Ordered treatment completed. Patient discharged without any issues. Patient has a copy dc papers and verbalizes understanding. All questions answered. Nickie Pizarro LPN 10/01/22 0557 [facility] 10-01-2022 Emergency department Note Wound care completed. Ordered treatment completed. Patient discharged without any issues. Patient has a copy dc papers and verbalizes understanding. All questions answered. Nickie Pizarro LPN 10/01/22 1405 Emergency Department Encounter [facility] EMERGENCY DEPT Patient: Apoorva Gonzalez [...] [employer] Mak Hilario MD 10/01/221947 Images from the [...] PPE for the entirety of this encounter. VALERIO Gonzalez is a 72 y.o. female who [...] History of blood transfusion 02/27/2022 Hypertension Seizure ([facility]) Developed seizure-like activity on 02/24 during hospital admission SURGICAL HISTORY Past Surgical History: Procedure Laterality Date AV FISTULA PLACEMENT Left 08/07/2022 IR CVC TUNNELED DIALYSIS CATHETER PLACEMENT 02/27/2022 IR CVC TUNNELED CATHETER PLACEMENT 02/27/2022 Candis Andrade MD [facility] SPECIAL PROCEDURES CURRENT MEDICATIONS Previous [...] REFERRED TO: Christiano Grove DO [address] [facility] [address] Schedule an appointment as soon as possible for a visit [facility] EMERGENCY DEPT [address] [facility] [phone] Go to If symptoms worsen DISCHARGE [...] Sampson 10/01/22 1345 documented in this encounter [facility] 10-01-2022 Hospital Discharge instructions FREDI Sampson - 10/01/2022 1:44 PM EDT Follow-up your primary care doctor and return to the ER if you experience any worsening symptoms. documented in this encounter [facility] 10-01-2022 Physician Emergency department Note Emergency Department Encounter [facility] EMERGENCY DEPT Patient: Apoorva Gonzalez [...] dictating provider for clarification.) Mak Hilario MD [facility] Mak Hilario MD 10/01/221947 [employer] Phone: 10-01-2022 Physician Emergency department Note Images [...] History of blood transfusion 02/27/2022 Hypertension Seizure ([facility]) Developed seizure-like activity on 02/24 during [...] REFERRED TO: Christiano Grove DO [address] [facility] [id number] Schedule an appointment as soon as possible for a visit [facility] EMERGENCY DEPT [address] [place] [phone] Go to If symptoms worsen DISCHARGE [...] signed) Emergency Medicine Provider FREDI Sampson 10/01/22 4526 [facility] 10-01-2022 Note Formatting of this n ote might be different from the original. Dwain nurse from [facility] called d/t to patient having tunneled [...] her physician and/or be seen emergency dept. [facility] 10-01-2022 Miscellaneous Notes Dwain nurse from [facility] called d/t to patient having tunneled [...] seen emergency dept. documented in this encounter [facility] 09-30-2022 Nurse Note Tunneled HD catheter cleansed with betadine and removed from pt RIJ. 14fr x 24cm. Pt followed breathing instructions and tolerated well. Pressure held x10 min. Discharged home with all belongings, steady, independent gait. [facility] 09-30-2022 Nurse Note Tunneled HD catheter cleansed with betadine and removed from pt RIJ. 14fr x 24cm. Pt followed breathing instructions and tolerated well. Pressure held x10 min. Discharged home with all belongings, steady, independent gait. documented in this encounter [facility] 08-07-2022 Hospital Discharge instructions Arthur Medrano MD [...] questions or concerns! documented in this encounter [facility] 08-07-2022 Attending History and physical note H&P [...] Source Note - Mary Wilkinson APRN - [employer]RE[employer]TER - 07/10/2022 12:30 PM EDT Images from the original note were not included. Comprehensive PreSurgical History and Physical ? Name: Apoorva Gonzalez : 1950 (Age-72 y.o.) Date of Service: Pt seen/examined on 07/10/2022 Procedure Information Date/Time: 07/17/22 1130 Procedure: LEFT UPPER EXTREMITY ARTERIOVENOUS GRAFT PLACEMENT (Left) Location: [facility] OR Operating Room Surgeons: Raffy Rojas MD Chief Complaint: Dependence on renal dialysis End stage renal disease History Of Present Illness: 72 y.o. female who we are asked to see/evaluate by Dr. Rojas for pre-operative evaluation prior to above procedure . ? Denies history of OK, CHF, TIA, CVA Past Medical History: Past [...] mg) by mouth daily. 03/02/22 04/01/22 Evan A Botsch, SECURITY FLEX OFFICER - [employer]TER omega-3 (Fish Oil) 1000 MG capsule Take [...] Electronically signed by: Mary Wilkinson APRN - [employer]IGHT ROUTER Date: 07/10/2022 at 1:05 PM PAT Protocol referenced includes: 1. Anesthesia Lab Protocol Orders 2. Perioperative Cardiovascular Risk Assessment 3. Anesthesia Assessment 4. Pain Assessment and Acute Pain Service Consult (if appropriate) 5. Medical Clearance/Consult from Internal Medicine (IMS) 6. Shower/Wash Order (for designated surgeries) 7. KOREY Screen and Sleep Clinic Referral (if appropriate) :[employer] Phone: 08-07-2022 Note Formatting of this n ote might be different from the original. OPERATIVE REPORT DATE OF SERVICE: 08/07/2022 PRE-PROCEDURE DIAGNOSIS: End Stage Renal Disease on Hemodialysis POST-PROCEDURE DIAGNOSIS: As above PROCEDURE PERFORMED: Left upper extremity brachial artery to axillary vein arteriovenous graft placement with 4-7 mm Propaten graft SURGEON: Raffy Rojas MD ASSISTANTS: Tevin Hodgson APRN-FREIGHT ROUTER and Arthur Medrano MD (PGY-5) FINDINGS: Palpable [...] remained palpable. Raffy Rojas MD Vascular Surgery [facility] 08-07-2022 Note Formatting of this n ote might be different from the original. OPERATIVE REPORT DATE OF SERVICE: 08/07/2022 PRE-PROCEDURE DIAGNOSIS: End Stage Renal Disease on Hemodialysis POST-PROCEDURE DIAGNOSIS: As above PROCEDURE PERFORMED: Left upper extremity brachial artery to axillary vein arteriovenous graft placement with 4-7 mm Propaten graft SURGEON: Raffy Rojas MD ASSISTANTS: Tevin Hodgson APRN-TAMIR and Arthur Medrano MD (PGY-5) [...] remained palpable. Raffy Rojas MD Vascular Surgery [facility] 08-07-2022 History and physical note [...] been signed. Source Note - Mary Wilkinson SECURITY FLEX OFFICER - [employer]TER - 07/10/2022 12:30 PM EDT Images from the original note were not included. Comprehensive PreSurgical History and Physical ? Name: Apoorva Gonzalez : 1950 (Age-72 y.o.) Date of Service: Pt seen/examined on 07/10/2022 Procedure Information Date/Time: 07/17/22 2590 Procedure: LEFT UPPER EXTREMITY ARTERIOVENOUS GRAFT PLACEMENT (Left) Location: [facility] OR Operating Room Surgeons: Raffy Rojas MD Chief Complaint: Dependence on renal dialysis End stage renal disease History Of Present Illness: 72 y.o. female who we are asked to see/evaluate by Dr. Rojas for pre-operative evaluation prior to above procedure . ? Denies history of OK, CHF, TIA, CVA Past Medical History: Past Medical History: No date: Chronic kidney disease (CKD) No date: Hemodialysis patient ([facility]) ([facility]) Comment: Wednesday, , Wednesday02/27/2022: History of blood transfusion No date: Hypertension No date: Seizure ([facility]) Comment: Developed seizure-like activity on 02/24 during hospital admission Past Surgical History: Past Surgical History: 02/27/2022: IR CVC TUNNELED DIALYSIS CATHETER PLACEMENT Comment: IR CVC TUNNELED CATHETER PLACEMENT 02/27/2022 Candis Andrade MD [facility] SPECIAL PROCEDURES Medications Prior to [...] Electronically signed by: Mary Wilkinson APRN - [employer]TER Date: 07/10/2022 at 1:05 PM PAT Protocol referenced includes: 1. Anesthesia Lab Protocol Orders 2. Perioperative Cardiovascular Risk Assessment 3. Anesthesia Assessment 4. Pain Assessment and Acute Pain Service Consult (if appropriate) 5. Medical Clearance/Consult from Internal Medicine (IMS) 6. Shower/Wash Order (for designated surgeries) 7. KOREY Screen and Sleep Clinic Referral (if appropriate) documented in this encounter [facility] 08-07-2022 Miscellaneous Notes OPERATIVE REPORT DATE OF SERVICE: 08/07/2022 PRE-PROCEDURE DIAGNOSIS: End Stage Renal Disease on Hemodialysis POST-PROCEDURE DIAGNOSIS: As above PROCEDURE PERFORMED: Left upper extremity brachial artery to axillary vein arteriovenous graft placement with 4-7 mm Propaten graft SURGEON: Raffy Rojas MD ASSISTANTS: Tevin Hodgson APRN-FREIGHT ROUTER and Arthur Medrano MD (PGY-5) FINDINGS: Palpable [...] MD Vascular Surgery documented in this encounter [facility] 07-17-2022 Telephone encounter Note Patient called in [...] and times and fasting instructions with patient. Tevin has put new orders in Epic due to case number changed and was cancelled. New updated information has been faxed to [facility]. [facility] 07-17-2022 Miscellaneous Notes Patient called in today stating that she has to reschedule her surgery because she ate breakfast this morning. Surgery has been rescheduled to: Date: 08/07/22 AT 9:30 AM PAT IS STILL GOOD FROM 07/10/22 NEW PO: 08/26/22 AT 8:30 AM New surgical booklet mailed to patient home withupdates. Also went over all dates and times and fasting instructions with patient. Tevin has put new orders in Epic due to case number changed and was cancelled. New updated information has been faxed to [facility]. SURGERY: LEFT UPPER EXTREMITY AV GRAFT PLACEMENT DATE OF SURGERY: 07/17/22 11:30 PRE TESTIN07/10/2022 12:30 AUTH #: LUIZA CARDIAC CLEARANCE POST OP OR OV: 08/03/2022 2:00 MEDS TO HOLD: NONE MEDS TO CONTINUE: ALL documented in this encounter [facility] 07-17-2022 Attending History and physical note I [...] UPPER EXTREMITY ARTERIOVENOUS GRAFT PLACEMENT (Left) Location: [facility] OR [address] [place] [address] Operating Room Surgeons: Raffy Rojas MD Chief Complaint: Dependence on renal dialysis End stage renal disease History Of Present Illness: 72 y.o. female who we are asked to see/evaluate by Dr. Rojas for pre-operative evaluation prior to above procedure . ? Denies history of OK, CHF, TIA, CVA Past Medical History: Past Medical History: No date: Chronic kidney disease (CKD) No date: Hemodialysis patient ([facility]/HCC) ([facility]) Comment: Wednesday, , Wednesday02/27/2022: History of blood transfusion No date: Hypertension No date: Seizure ([facility]) Comment: Developed seizure-like activity on 02/24 during hospital admission Past Surgical History: Past Surgical History: 02/27/2022: IR CVC TUNNELED DIALYSIS CATHETER PLACEMENT Comment: IR CVC TUNNELED CATHETER PLACEMENT 02/27/2022 Candis Andrade MD [facility] SPECIAL PROCEDURES Medications Prior to [...] Currently has right chest port and dialysis T-- [facility] ordered 2) Hx seizure (one [...] Screen and Sleep Clinic Referral (if appropriate) [facility] [employer] Phone: 07-17-2022 History and physical note I was notified the patient had breakfast this morning prior to arrival. Will cancel case for today and reschedule. The office has been notified and will work to reschedule her surgery. Source Note - Mary Wilkinson APRN - [employer]TER - 07/10/2022 12:30 PM EDT Images from the original note were not included. Comprehensive PreSurgical History and Physical ? Name: Apoorva Gonzalez : 1950 (Age-72 y.o.) Date of Service: Pt seen/examined on 07/10/2022 Procedure Information Date/Time: 07/17/22 1130 Procedure: LEFT UPPER EXTREMITY ARTERIOVENOUS GRAFT PLACEMENT (Left) Location: [address] Operating Room Surgeons: Raffy Rojas MD Chief Complaint: Dependence on renal dialysis End stage renal disease History Of Present Illness: 72 y.o. female who we are asked to see/evaluate by Dr. Rojas for pre-operative evaluation prior to above procedure . ? Denies history of OK, CHF, TIA, CVA Past Medical History: Past Medical History: No date: Chronic kidney disease (CKD) No date: Hemodialysis patient ([facility]) ([facility]) Comment: Wednesday, , Wednesday02/27/2022: History of blood transfusion No date: Hypertension No date: Seizure ([facility]) Comment: Developed seizure-like activity on 02/24 during hospital admission Past Surgical History: Past Surgical History: 02/27/2022: IR CVC TUNNELED DIALYSIS CATHETER PLACEMENT Comment: IR CVC TUNNELED CATHETER PLACEMENT 02/27/2022 Candis Andrade MD [facility] SPECIAL PROCEDURES Medications Prior to [...] Currently has right chest port and dialysis T- [facility] ordered 2) Hx seizure [...] Referral (if appropriate) documented in this encounter [facility] 07-17-2022 Note Formatting of this n ote might be different from the original. Pt ate a crab cake and egg at 0530, Dr Rojas notified, unable to do surgery later. Pt advised that her surgery is cancelled for today and to go home and reschedule for another day. Pt advised to not eat anything at all before next surgery. [facility] 07-17-2022 Note Formatting of this n ote might be different from the original. Pt ate a crab cake and egg at 0530, Dr Rojas notified, unable to do surgery later. Pt advised that her surgery is cancelled for today and to go home and reschedule for another day. Pt advised to not eat anything at all before next surgery. [facility] 07-17-2022 Miscellaneous Notes Pt ate a crab cake and egg at 0530, Dr Rojas notified, unable to do surgery later. Pt advised that her surgery is cancelled for today and to go home and reschedule for another day. Pt advised to not eat anything at all before next surgery. documented in this encounter [facility] 07-10-2022 Telephone encounter Note Lab called me with a critical lab K 6.6 Patient has ESRD on HD (T--S) and scheduled for HD tomorrow. Advise for patient to go to HD session tomorrow given her elevated K. No need for ED visit at this time. Maria R Greenwood MD Division of Hospitalist Medicine [employer] [facility] [employer] 7:06 PM 07/10/22 [facility] [employer] Work Phone: 07-10-2022 Miscellaneous Notes Lab called me with a critical lab K 6.6 Patient has ESRD on HD (T--S) and scheduled for HD tomorrow. Advise for patient to go to HD session tomorrow given her elevated K. No need for ED visit at this time. Maria R Greenwood MD Division of Hospitalist Medicine [employer] [facility] [employer] 7:06 PM 07/10/22 documented in this encounter [facility] 07-01-2022 Telephone encounter Note SURGERY: LEFT UPPER EXTREMITY AV GRAFT PLACEMENT DATE OF SURGERY: 07/17/22 11:30 PRE TESTIN07/10/2022 12:30 AUTH #: LUIZA CARDIAC CLEARANCE POST OP OR OV: 08/03/2022 2:00 MEDS TO HOLD: NONE MEDS TO CONTINUE: ALL [facility] 06-24-2022 History of Present illness Narrative Vascular [...] difficulty. She had vein mapping performed at [facility]. Past Medical History: Past Medical History: [...] MD Vascular Surgery documented in this encounter [facility] 06-03-2022 Note HNO ID: [id number] Author: DEZ Boyce) Service: Radiology Author Type: Technologist Type: Progress [...] June 03, 2022 2:29 PM [facility] 06-03-2022 History of Present illness Narrative [...] 2022 2:29 PM documented in this encounter [facility] 12-31-2020 Note HNO ID: [id number] Author: Philly Michael RN Service: ? Author [...] least a years time. Phone number provided. [facility] Evaluation note Diagnosis ESRD (end stage renal disease) (HCC)- Primary End stage renal disease [facility] S/P arteriovenous (AV) graft placement- Primary [facility] Diagnosis End stage renal disease (HCC) End stage renal disease [facility] Diagnosis Hematoma- Primary Contusion of unspecified site Bleeding from wound [facility]* Diagnosis End stage renal disease (HCC)- Primary End stage renal disease End stage renal disease (HCC) End stage renal disease [facility] Diagnosis Encounter for screening mammogram for malignant neoplasm of breast [facility] Diagnosis ESRD on hemodialysis (CMS/HCC) (HCC)- Primary [facility]* Diagnosis Hyperkalemia- Primary Hyperpotassemia [facility]* Diagnosis End stage renal disease (HCC)- Primary End stage renal disease [facility]* Diagnosis Gastrointestinal hemorrhage, unspecified gastrointestinal hemorrhage type- Primary Gastrointestinal hemorrhage, unspecified gastrointestinal hemorrhage type Anemia, unspecified type Anemia Unspecified anemia [facility]* Diagnosis Hypertension, unspecified type- Primary [facility]* Diagnosis Pulmonary edema, acute (HCC)- Primary Unspecified acute edema of lung Pulmonary edema, acute (HCC) Unspecified acute edema of lung [facility]* Diagnosis Shortness of breath- Primary Shortness of breath Acute pulmonary edema (HCC) Unspecified acute edema of lung Hyperkalemia Hyperpotassemia [facility]* Diagnosis Encounter for screening mammogram for malignant neoplasm of breast [facility]* Diagnosis Myoclonus- Primary Fall, initial encounter Hyperkalemia Hyperpotassemia [facility]* Diagnosis Adverse effect of drug, initial encounter- Primary [facility] [place]* Diagnosis Hematoma- Primary Contusion of unspecified site Hematoma Contusion of unspecified site documented in this encounter [facility] Work Phone: Evaluation note* Diagnosis Sepsis, due to unspecified organism, unspecified whether acute organ dysfunction present (HCC)- Primary Sepsis, due to unspecified organism, unspecified whether acute organ dysfunction present (HCC) Altered mental status, unspecified altered mental status type Buttock wound, left, initial encounter Seizures (HCC) Other convulsions ESRD (end stage renal disease) (HCC) End stage renal disease Dialysis patient ([facility]) Renal dialysis status documented in this encounter [facility] note* Diagnosis Wound dehiscence- Primary Disruption of external operation (surgical) wound Wound dehiscence Disruption of external operation (surgical) wound Anemia due to other cause, not classified End stage congestive heart failure (HCC) Seizures (HCC) Other convulsions Pressure ulcer of left buttock, stage 3 (HCC) End stage congestive heart failure (HCC) [facility]* Diagnosis End stage congestive heart failure (HCC)- Primary ESRD (end stage renal disease) (HCC) End stage renal disease [facility] [place]* Diagnosis Anemia of chronic disease- Primary Anemia of other chronic disease [facility] Diagnosis ESRD (end stage renal disease) on dialysis (HCC)- Primary End stage renal disease documented in [facility] encounter [facility]* Diagnosis ESRD (end stage renal disease) on dialysis (HCC)- Primary End stage renal disease [facility]* Diagnosis ESRD (end stage renal disease) on dialysis (HCC) End stage renal disease Preop examination Unspecified pre-operative examination [facility] [place] [facility]* Diagnosis Fall, initial encounter- Primary Fall, initial encounter Closed head injury, initial encounter Pressure injury of left buttock, stage 3 (HCC) Fall (on)(from) sidewalk curb, initial encounter Moderate malnutrition (CMS/HCC) (HCC) documented [facility]* Diagnosis Transient alteration of awareness- Primary [facility]* Attachments The following attachments cannot be sent through Care Everywhere. * Hyperkalemia (Polish) [facility]* Attachments The following attachments cannot be sent through Care Everywhere. * High Blood Pressure Discharge Instructions (Polish) [facility] Attachments The following attachments cannot be sent through Care Everywhere. * Anemia of Inflammation (Anemia of Chronic Disease) (Polish) documented in this [facility]Instructions* Attachments The following attachments cannot be sent through Care Everywhere. * Preparing for Hemodialysis (Polish) * Hemodialysis (Polish) documented in this [facility] HealthReason for visit Narrative* Auth/Cert (Routine) Specialty Diagnoses / Procedures Referred By Gustavo jones Referred To Contact Diagnoses Hematoma Fluid Collection Procedures No coded [place] [address] [facility] Department of [place] [address] Phone: tel: fax: [place] [phone] [place] [address] Phone: tel: Referral ID Status Reason Start Date Expiration Date Visits Re quested Visits Authorized [id number] 1 1 [facility] Work Phone: [facility] for visit Narrative* Imaging (Routine) - Closed Specialty Diagnoses / Procedures Referred By Gustavo jones Referred To Contact Cardiology Diagnoses ESRD (end stage renal disease) on dialysis (HCC) Preop examination Procedures Vascular US vessel map for hemodialysis access arm bilateral Raffy Rojas MD [address] [place] [address] [address] [place] [address] Phone: tel: fax: Referral ID Status Reason Start Date Expiration Date Visits Re quested Visits Authorized [id number] Closed 11/28/2024 11/28/2026 1 1 [facility] Advance Directives No Advanced Directives Records FoundDocuments on File Type Date Recorded 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 Cut Roll 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 Expl anation Advance Directives and Living Will Power of Segmental Paving Supervisor Documents on File Type Date Recorded Patient Cut Roll 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 Expl anation Advance Directive(s) 10/25/2019 7:08 [...] Documents on File Type Date Recorded Patient Cut Roll 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 Expl anation Advance Directives and Livin g Will 10/01/2022 1:19 PM Power of Segmental Paving Supervisor 10/01/2022 1:19 PM Latest Code Status on File Code Status Date Activated Date Inactivated Comments Full Code 08/07/2022 8:15 AM 08/08/2022 8:14 AM Code Status History Code Status Date Activated Date Inactivated Comments Full Code 07/17/2022 9:55 AM 07/17/2022 12:44 PM Full Code 02/24/2022 5:00 PM 03/02/2022 7:07 PM Documents on File Type Date Recorded Patient Cut Roll 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 Expl anation Advance Directives and Livin g Will 10/01/2022 1:19 PM Power of Segmental Paving Supervisor 10/01/2022 1:19 PM Date Activated Date Inactivated [...] Documents on File Type Date Recorded Patient Cut Roll 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 Expl anation DNR (Do Not Resuscitate) 01/26/2024 11:24 AM Advance Directives and Livin g Will 10/01/2022 1:19 PM Power of Segmental Paving Supervisor 10/01/2022 1:19 PM Date Activated Date Inactivated [...] p Communication Mayur Barragan Health Care Agent Date Activated Date Inactivated Comments 08/31/2024 12:12 AM Question Answer Comments Plan of Care: Code Status Discussion Completed Decision Maker: Patient Documents on File Type Date Recorded Patient Cut Roll 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 Expl anation Power of Segmental Paving Supervisor 10/24/2024 11:41 AM Power of Segmental Paving Supervisor 10/24/2024 11:24 AM DNR (Do Not Resuscitate) 01/26/2024 11:24 AM Advance Directives and Living Will 10/01/2022 1:19 PM Power of Segmental Paving Supervisor 10/01/2022 1:19 PM DNR (Do Not Resuscitate) 11/11/2024 12:26 PM [place] D[place] Form Date Activated Date Inactivated Comments [...] Relationship Healthcare Agent Relationshi p Communication Deshawn Arredondo Health Care Agent Documents on File Type Date Recorded Patient Cut Roll 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 Expl anation Power of Segmental Paving Supervisor 10/24/2024 11:41 AM Power of Segmental Paving Supervisor 10/24/2024 11:24 AM DNR (Do Not Resuscitate) 01/26/2024 11:24 AM Advance Directives and Living Will 10/01/2022 1:19 PM Power of Segmental Paving Supervisor 10/01/2022 1:19 PM DNR (Do Not Resuscitate) 11/15/2024 10:00 AM [place] D[place] Form DNR (Do Not Resuscitate) 11/11/2024 12:26 PM [place] D[place] Form Date Activated Date Inactivated Comments [...] Name Relationship Healthcare Agent Relationshi p Communication [facility] Agent Healthcare Agents on File Name Relationship Healthcare Agent Relationshi p Communication [facility] Agent Documents on File Type Date Recorded Patient Cut Roll 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 Expl anation Power of Segmental Paving Supervisor 10/24/2024 11:24 AM DNR (Do Not Resuscitate) 01/26/2024 11:24 AM Advance Directives and Living Will 10/01/2022 1:19 PM Power of Segmental Paving Supervisor 10/01/2022 1:19 PM DNR (Do Not Resuscitate) 11/15/2024 10:00 AM [place] D[place] Form DNR (Do Not Resuscitate) 11/11/2024 12:26 PM [place] D[place] Form Date Activated Date Inactivated Comments [...] Relationshi p Communication Deshawn Crystal [facility] Agent Documents on File Type Date Recorded Patient Cut Roll 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 Expl anation Power of Segmental Paving Supervisor 10/24/2024 11:24 AM DNR (Do Not Resuscitate) 01/26/2024 11:24 AM Advance Directives and Living Will 10/01/2022 1:19 PM Power of Segmental Paving Supervisor 10/01/2022 1:19 PM DNR (Do Not Resuscitate) 11/15/2024 10:00 AM [place] DNR Form DNR (Do Not Resuscitate) 11/11/2024 12:26 PM [place] DNR Form Healthcare Agents on File Name Relationship Healthcare Agent Relationshi p Communication Deshawn [facility] Care Agent Healthcare Agents on File Name Relationship Healthcare Agent Relationshi p Communication Deshawn [facility] Care Agent Healthcare Agents on File Name Relationship Healthcare Agent Relationshi p Communication Deshawn [facility] Care Agent Documents on File Type Date Recorded Patient Cut Roll 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 Expl anation Power of Segmental Paving Supervisor 10/24/2024 11:24 AM DNR (Do Not Resuscitate) 01/26/2024 11:24 AM Advance Directives and Living Will 10/01/2022 1:19 PM Power of Segmental Paving Supervisor 10/01/2022 1:19 PM DNR (Do Not Resuscitate) 12/20/2024 2:49 PM [place] DNR Form DNR (Do Not Resuscitate) 11/15/2024 10:00 AM [place] D[place] Form DNR (Do Not Resuscitate) 11/11/2024 12:26 PM [place] DNR Form Date Activated Date Inactivated Comments [...] Agents on File Name Relationship Healthcare [facility] Deshawn Crystal [facility] Agent (Appear) Documents on File Type Date Recorded Patient Cut Roll 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 Expl anation DNR (Do Not Resuscitate) 12/21/2024 11:18 AM Power of Segmental Paving Supervisor 10/24/2024 11:24 AM DNR (Do Not Resuscitate) 01/26/2024 11:24 AM Advance Directives and Living Will 10/01/2022 1:19 PM Power of Segmental Paving Supervisor 10/01/2022 1:19 PM DNR (Do Not Resuscitate) 12/20/2024 2:49 PM [place] DNR Form DNR (Do Not Resuscitate) 11/15/2024 10:00 AM [place] D[place] Form DNR (Do Not Resuscitate) 11/11/2024 12:26 PM [place] DNR Form Date Activated Date Inactivated Comments [...] Agents on File Name Relationship Healthcare Agent [facility] Communication Deshawn Crystal [facility] Agent (Appear) Assessments Diagnosis Chronic kidney disease, stage IV [...] t Referred To Contact Arthur Medrano MD [facility] [place] [address] Referral ID Status Reason Start Date Expiration Date Visits Re quested Visits Authorized [id number] Closed 1 1 Specialty Diagnoses / Procedures Referred By Contac t Referred To Contact Radiology Diagnoses End stage renal disease (HCC) Procedures IR CVC tunneled catheter removal Radha Meza MD [address] [place] [address] [place] [address] Referral ID Status Reason Start Date Expiration Date Visits Re quested Visits Authorized [id number] Closed 09/28/2022 03/27/2023 1 1 Specialty Diagnoses / Procedures Referred By Contac t Referred To Contact Radiology Diagnoses End stage renal disease (HCC) Procedures IR fistulagram Radha Meza MD [address] [address] Referral ID Status Reason Start Date Expiration Date V isits Requested Visits Authorized [id number] Pending Review 06/25/2023 06/24/2024 1 1 Additional Source Comments Source Comments (unrecognize d section and content) In the event this informatio n is protected by the Federal Confidentiality of Alcohol and Drug Abuse Patient Records regulations: The Federal rules restrict any use of the information to criminally investigate or prosecute any alcohol or drug abuse patient.[facility] the event this information is protected by the Federal Confidentiality of Alcohol and Drug Abuse Patient Records regulations: The Federal rules restrict any use of the information to criminally investigate or prosecute any alcohol or drug abuse patient.[facility] Center[facility] the event this information is protected by the Federal Confidentiality of Alcohol and Drug Abuse Patient Records regulations: The Federal rules restrict any use of the information to criminally investigate or prosecute any alcohol or drug abuse patient.[facility] Center[facility] the event this information is protected by the Federal Confidentiality of Alcohol and Drug Abuse Patient Records regulations: The Federal rules restrict any use of the information to criminally investigate or prosecute any alcohol or drug abuse patient.[facility] INFORMATION SOURCE (unrecogn ized section and content) DATE CREATED AUTHOR 11/03/2019 [facility] DATE CREATED AUTHOR AUTHOR'S ORGANIZ ATION 11/29/2020 [facility] DATE CREATED AUTHOR AUTHOR'S ORGANIZ ATION 09/12/2021 [facility] DATE CREATED AUTHOR AUTHOR'S ORGANIZ ATION 06/05/2022 [facility] DATE CREATED AUTHOR AUTHOR'S ORGANIZ ATION 09/09/2024 [facility] DATE CREATED AUTHOR AUTHOR'S ORGANIZ ATION 09/16/2024 [facility] DATE CREATED AUTHOR AUTHOR'S ORGANIZ ATION 01/11/2025 [facility] DATE CREATED AUTHOR AUTHOR'S ORGANIZ ATION 02/09/2025 [facility] Reason for Visit (unrecogniz ed section and content) Status Reason Specialty Diagnoses / Procedures Referred By Contact Referred To Contact Diagnoses Chronic kidney disease (CKD), stage IV (severe) (HCC) Procedures RENAL BX. PERCUTANEOUS BIOPSY KIDNEY PERCUTANEOUS [place] Interventional Radiology [facility] [place] [address] Reason Comments New Patient Eval for perm access placement; 06/03/22 Specialty Diagnoses / Procedures Referred By Contac t Referred To Contact Diagnoses Dependence on renal dialysis (HCC) End stage renal disease (HCC) Dependence on renal dialysis (CMS/HCC) (HCC) [Z99.2] End stage renal disease (HCC) [N18.6] Procedures NC CRTJ ARVEN FSTL XCP DIR ARVEN ANAST NONAUTOG GRF LEFT UPPER EXTREMITY ARTERIOVENOUS GRAFT PLACEMENT Raffy Rojas MD [address] [place] [address] [address] [place] [address] Referral ID Status Reason Start Date Expiration Date Visits Re quested Visits Authorized [id number] 1 1 Reason Onset Date Comments Surgery Scheduling 07/01/2022 Referral ID Status Reason Start Date Expiration Date Visits Re quested Visits Authorized [id number] 1 1 Specialty Diagnoses / Procedures Referred By Contac t Referred To Contact Radiology Diagnoses End stage renal disease (HCC) Procedures IR CVC tunneled catheter removal Radha Meza MD [address] [place] [address] Referral ID Status Reason Start Date Expiration Date Visits Re quested Visits Authorized [id number] Closed 09/28/2022 03/27/2023 1 1 Reason Comments [...] type Procedures k92.2 Gabriel Delgado MD [address] [place] [address] Phone: tel: fax: [facility] Cardiac Thoracic Vascular Intensive Care Unit CTV ICU T1 [address] [place] [address] Phone: tel: Referral ID Status Reason Start Date Expiration Date Visits Re quested Visits Authorized [id number] 1 1 Reason Comments Hypertension Treated with [...] Pulmonary edema, acute (HCC) Procedures . Radha Kevin DO [address] [place] [address] Phone: tel: fax: [facility] EMERGENCY DEPT [address] [place] [address] Phone: tel: Referral ID Status Reason Start Date Expiration Date Visits Re quested Visits Authorized [id number] 1 1 Reason Comments Shortness of Breath Patient presents to ED via triage with SOB. Patient states she's missed a couple dialysis tx. Specialty Diagnoses / Procedures Referred By Gustavo t Referred To Contact Diagnoses Shortness of breath Hyperkalemia Acute pulmonary edema (HCC) Procedures . John Mayes DO [address] [place] [address] Phone: tel: fax: [facility] Cardiac Progressive Care Unit PCU [address]W [address] [place] [address] Phone: tel: Referral ID Status Reason Start Date Expiration Date Visits Re quested Visits Authorized [id number] 1 1 Reason Comments Fall Pt presents [...] Comments Altered Mental Status Pt came from [facility]. Squad was called for weakness and [...] present (HCC) Procedures .. Loni Zambrano MD [address] [place] [address] Phone: tel: fax: [facility] Intensive Care Unit ICU 2 [address] [place] [address] Phone: tel: Referral ID Status Reason Start Date Expiration Date Visits Re quested Visits Authorized [id number] 1 1 Reason Comments Wound Check EMS from [facility] f or bleeding fistula in left upper arm. DC from [facility] to [facility] previously. Specialty Diagnoses / Procedures Referred By Gustavo jones Referred To Contact Diagnoses Wound dehiscence Procedures .. Edson Graham MD [address] [place] [address] Phone: tel: fax: [facility] Cardiac Vascular Progressive Care Unit PCC [address] [place] [address] Phone: tel: Referral ID Status Reason Start [...] initial encounter Procedures . Magalys Can MD [address] [place] [address] Phone: tel: fax: [facility] [address] [place] [phone] Phone: tel: Referral ID Status Reason Start Date Expiration Date Visits Re quested Visits Authorized [id number] 1 1 Reason Comments Altered Mental Status Per [facility] Mateo gerber, pt was altered last night. Sent to ED for eval. Pt denies any complaints. Care Teams (unrecognized sec tion and content) Massage Coordinator Relationship Specialty Start Date End Date Christiano Grove, DO [address] [phone] PCP - General Family Medicine 10/25/19 Massage Coordinator Relationship Specialty Start Date End Date Christiano Grove DO [address] [phone] PCP - General Family Medicine 10/25/19 Massage Coordinator Relationship Specialty Start Date End Date Christiano Grove DO [address] [place] [id number] PCP - General 09/17/16 Carlos Manuel Wang MD [address] [place] [address] Nephrology 06/24/22 Raffy Rojas MD [address] [place] [address] Consulting Physician Vascular Surgery 06/24/22 [facility] 02/03/22 Massage Coordinator Relationship Specialty Start Date End Date Christiano Grove, DO [address] [place] [address] PCP - General 09/17/16 Carlos Manuel Wang MD [address] [place] [address] Nephrology 06/24/22 Raffy Rojas MD [address] [place] [address] Consulting Physician Vascular Surgery 06/24/22 [facility] 02/03/22 Massage Coordinator Relationship Specialty Start Date End Date Christiano Grove DO [address] [place] [address] PCP - General 09/17/16 Carlos Manuel Wang MD [address] [place] [address] Nephrology 06/24/22 Raffy Rojas MD [address] [place] [address] Consulting Physician Vascular Surgery 06/24/22 [facility] 02/03/22 Massage Coordinator Relationship Specialty Start Date End Date Christiano Grove, DO [address] [place] [address] PCP - General 09/17/16 Carlos Manuel Wang MD [address] [place] [address] Nephrology 06/24/22 Raffy Rojas MD [address] [place] [address] Consulting Physician Vascular Surgery 06/24/22 [facility] 02/03/22 Massage Coordinator Relationship Specialty Start Date End Date Christiano Grove, DO [address] [place] [address] PCP - General 09/17/16 Carlos Manuel Wang MD [address] [place] [address] Nephrology 06/24/22 Raffy Rojas MD [address] [place] [address] Consulting Physician Vascular Surgery 06/24/22 [facility] 02/03/22 Massage Coordinator Relationship Specialty Start Date End Date Christiano Grove, DO [address] [place] [address] PCP - General 09/17/16 Carlos Manuel Wang MD [address] [place] [address] Nephrology 06/24/22 Raffy Rojas MD [address] [place] [address] Consulting Physician Vascular Surgery 06/24/22 [facility] 02/03/22 Massage Coordinator Relationship Specialty Start Date End Date Christiano Grove DO [address] [place] [address] PCP - General 09/17/16 Carlos Manuel Wang MD [address] [place] [address] Nephrology 06/24/22 Raffy Rojas MD [address] [place] [address] Consulting Physician Vascular Surgery 06/24/22 [facility] 02/03/22 Massage Coordinator Relationship Specialty Start Date End Date Christiano Grove DO [address] [place] [address] PCP - General 09/17/16 Carlos Manuel Wang MD [address] [place] [address] Nephrology 06/24/22 Raffy Rojas MD [address] [place] [address] Consulting Physician Vascular Surgery 06/24/22 [facility] 02/03/22 Massage Coordinator Relationship Specialty Start Date End Date Christiano Grove DO [address] [place] [address] PCP - General 09/17/16 Carlos Manuel Wang MD [address] [place] [address] Nephrology 06/24/22 Raffy Rojas MD [address] [place] [address] Consulting Physician Vascular Surgery 06/24/22 [facility] 02/03/22 Massage Coordinator Relationship Specialty Start Date End Date Christiano Grove DO [address] [place] [address] PCP - General 09/17/16 Carlos Manuel Wang MD [address] [place] [address] Nephrology 06/24/22 Raffy Rojas MD [address] [place] [address] Consulting Physician Vascular Surgery 06/24/22 [facility] 02/03/22 Massage Coordinator Relationship Specialty Start Date End Date Christiano Grove DO [address] [place] [address] PCP - General 09/17/16 Carlos Manuel Wang MD [address] [place] [address] Nephrology 06/24/22 Raffy Rojas MD [address] [place] [address] Consulting Physician Vascular Surgery 06/24/22 [facility] 02/03/22 Massage Coordinator Relationship Specialty Start Date End Date Christiano Grove DO [address] [place] [address] PCP - General 09/17/16 Carlos Manuel Wang MD [address] [place] [address] Nephrology 06/24/22 Raffy Rojas MD [address] [place] [address] Consulting Physician Vascular Surgery 06/24/22 [facility] 02/03/22 Massage Coordinator Relationship Specialty Start Date End Date Christiano Grove DO [address] [place] [address] PCP - General 09/17/16 Carlos Manuel Wang MD [address] [place] [address] Nephrology 06/24/22 Raffy Rojas MD [address] [place] [address] Consulting Physician Vascular Surgery 06/24/22 [facility] 02/03/22 Massage Coordinator Relationship Specialty Start Date End Date Christiano Grove DO [address] [place] [address] PCP - General 09/17/16 Carlos Manuel Wang MD [address] [place] [address] Nephrology 06/24/22 Raffy Rojas MD [address] [place] [address] Consulting Physician Vascular Surgery 06/24/22 [facility] 02/03/22 Massage Coordinator Relationship Specialty Start Date End Date Christiano Grove DO [address] [place] [address] PCP - General 09/17/16 Carlos Manuel Wang MD [address] [place] [address] Nephrology 06/24/22 Raffy Rojas MD [address] [place] [address] Consulting Physician Vascular Surgery 06/24/22 [facility] 02/03/22 Massage Coordinator Relationship Specialty Start Date End Date Christiano Grove DO [address] [place] [address] PCP - General 09/17/16 01/19/24 Roxie Spain [address] [place] [phone] PCP - General Family Medicine 01/20/24 Carlos Manuel Wang MD [address] [place] [address] Nephrology 06/24/[address] Ro[address] [place] [address] Consulting Physician Vascular Surgery 06/24/22 [facility] 02/03/22 Massage Coordinator Relationship Specialty Start Date End Date Roxie Spain [address] [place] [address] PCP - General Family Medicine 01/20/24 Carlos Manuel Wang MD Nephrology 06/24/22 Raffy Rojas MD [address] [place] [address] Consulting Physician Vascular Surgery 06/24/22 [facility] 02/03/22 Massage Coordinator Relationship Specialty Start Date End Date Roxie Spain [address] [place] [phone] PCP - General Family Medicine 01/20/24 Carlos Manuel Wang MD Nephrology 06/24/22 Raffy Rojas MD [address] [place] [address] Consulting Physician Vascular Surgery 06/24/22 [facility] 02/03/22 Massage Coordinator Relationship Specialty Start Date End Date Roxie Spain [address] [place] [phone] PCP - General Family Medicine 01/20/24 Carlos Manuel Wang MD Nephrology 06/24/22 Raffy Rojas MD [address] [place] [address] Consulting Physician Vascular Surgery 06/24/22 [facility] 02/03/22 Massage Coordinator Relationship Specialty Start Date End Date Roxie Spain [address] [place] [phone] PCP - General Family Medicine 01/20/24 Carlos Manuel Wang MD Nephrology 06/24/22 Raffy Rojas MD [address] [place] [address] Consulting Physician Vascular Surgery 06/24/22 [facility] 02/03/22 Massage Coordinator Relationship Specialty Start Date End Date Roxie Spain [address] [facility] [place] [phone] PCP - General Family Medicine 01/20/24 Carlos Manuel Wang MD Nephrology 06/24/22 Raffy Rojas MD [address] [place] [address] Consulting Physician Vascular Surgery 06/24/22 [facility] 02/03/22 Massage Coordinator Relationship Specialty Start Date End Date Roxie Spain [address] [place] [phone] PCP - General Family Medicine 01/20/24 Carlos Manuel Wang MD Nephrology 06/24/[address] Ro[address] [place] [address] Consulting Physician Vascular Surgery 06/24/22 [facility] 02/03/22 Massage Coordinator Relationship Specialty Start Date End Date Roxie Spain [address] [place] [phone] PCP - General Family Medicine 01/20/24 Carlos Manuel Wang MD Nephrology 06/24/22 Raffy Rojas MD [address] [place] [address] Consulting Physician Vascular Surgery 06/24/22 [facility] 02/03/22 Massage Coordinator Relationship Specialty Start Date End Date Roxie Spain [address] [place] [phone] PCP - General Family Medicine 01/20/24 Carlos Manuel Wang MD Nephrology 06/24/22 Raffy Rojas MD [address] [place] [address] Consulting Physician Vascular Surgery 06/24/22 [facility] 02/03/22 [facility] 11/14/24 Massage Coordinator Relationship Specialty Start Date End Date Roxie Spain [address] [place] [phone] PCP - General Family Medicine 01/20/24 Carlos Manuel Wang MD Nephrology 06/24/22 Raffy Rojas MD [address] [place] [address] Consulting Physician Vascular Surgery 06/24/22 [facility] 02/03/22 [facility] 11/14/24 Massage Coordinator Relationship Specialty Start Date End Date Roxie Spain [address] [place] [address] PCP - General Family Medicine 01/20/24 Carlos Manuel Wang MD Nephrology 06/24/22 Raffy Rojas MD [address] [place] [address] Consulting Physician Vascular Surgery 06/24/22 [facility] [place] [facility]22 [facility] 11/14/24 Massage Coordinator Relationship Specialty Start Date End Date Roxie Spain [address] [place] [address] PCP - General Family Medicine 01/20/24 Carlos Manuel Wang MD Nephrology 06/24/22 Raffy Rojas MD [address] [place] [address] Consulting Physician Vascular Surgery 06/24/22 [facility] [place] [facility] 02/03/22 [facility] 11/14/24 Massage Coordinator Relationship Specialty Start Date End Date Roxie Spain [address] [place] [address] PCP - General Family Medicine 01/20/24 Carlos Manuel Wang MD Nephrology 06/24/22 R[address] Ro[address] [place] [address] Consulting Physician Vascular Surgery 06/24/22 [facility] 11/14/24 Massage Coordinator Relationship Specialty Start Date End Date Roxie Spain [address] [place] [address] PCP - General Family Medicine 01/20/24 Carlos Manuel Wang MD Nephrology 06/24/22 Raffy Rojas MD [address] [place] [address] Consulting Physician Vascular Surgery 06/24/22 [facility] [place] [facility] 02/03/22 [facility] 11/14/24 Massage Coordinator Relationship Specialty Start Date End Date Roxie Spain [address] [place] [id number] PCP - General Family Medicine 01/20/24 Carlos Manuel Wang MD Nephrology 06/24/22 Raffy Rojas MD [address] [place], [place] [id number] Consulting Physician Vascular Surgery 06/24/22 [facility] 11/14/24 Massage Coordinator Relationship Specialty Start Date End Date Roxie Spain [address] [place] [address] PCP - General Family Medicine 01/20/24 Carlos Manuel Wang MD Nephrology 06/24/22 Raffy Rojas MD [address] [place], [place] [id number] Consulting Physician Vascular Surgery 06/24/22 [facility] 02/03/22 [facility] 11/14/24 Scheduled Active and Recently Administ [...] Indication (Select all that apply): Surgical Prophylaxis 931 (Given - Provid er: PARK Cross CRNA)1140 [...] is preferred to drinking small amounts continuously. 164 (Given - Provider: Alisia Collier RN) polyethylene [...] Adkins RN - Reason: Patient/family refused) 0824 (JUN Hold - Provider: Automatic Transfer [...] access) 0900 (Given - Provider: Lenka Adkins RN)2099 (Given - Provider: Mary Francisco RN) 0824 (JUN Hold - Provider: Automatic Transfer Provider - Reason: Patient not available)0900 (Given - Provider: Lenka Adkins RN)1029 (MAR Unhold - Provider: Automatic Transfer Provider) sodium chloride 0.9% (NS) flush 10 mL (CANCELED) 10 mL, IntraVENous, Every 12 hours scheduled (2 times per day), First dose on Wed01/23/24 at 1000, Preprocedure 1000 (Given - Provider: Alisia Collier, CYNTHIA)2015 (Given - Provider: Anne-Marie He RN) 0900 (Given - Provider: Lenka Adkins RN) technetium Tc-99m labeled red blood cells (UltraTAG) radio-isotope injection 20 millicurie (COMPLETED) 20 millicurie, IntraVENous, Once, On Wed01/24/24 at 1345, For 1 dose 1345 (Given - Provider: Love Baig [facility]) PRN Medication Order 01/23/2024 01/24/2024 01/25/2024 [...] 2017 (Given - Provider: Mary Francisco RN) 0824 (JUN Hold - Provider: Automatic Transfer Provider - Reason: Patient not available)102 (JUN Unhold - Provider: Automatic Transfer Provider) Diclofenac Sodium (Voltaren) 1 % gel 2 g 2 g, Topical, 2 times daily PRN, Joint pain, Starting on Wed01/21/24 at 0845, Apply to area w joint pain. 0824 (JUN Hold - Provider: Automatic Transfer Provider - Reason: Patient not available)102 (JUN Unhold - Provider: Automatic Transfer Provider) fentaNYL (Sublimaze) injection (COMPLETED) IntraVENous, As needed, Starting on Wed01/24/24 at 1637, Intraprocedure 1637 (Given - Provider: Rayshawn Lawson, CYNTHIA) hydrALAZINE (Apresoline) injection 10 mg 10 mg, IntraVENous, Every 6 hours PRN, high blood pressure, SBP >160, Starting on Wed01/24/24 at 1829 1835 (Given - Provider: Enriqueta Ricks, CYNTHIA) 0824 (JUN Hold - Provider: Automatic Transfer Provider - Reason: Patient not available)102 ([facility] Unhold - Provider: Automatic Transfer Provider) iopamidol (Isovue-300) 61 % injection 100 mL (COMPLETED) 100 mL, Intra-arTERial, IMG once PRN, contrast, Starting on Wed01/24/24 at 1719, For 1 dose 1721 (Given - Provider: Geraldine Carson, RT (R)) midazolam (Versed) injection (COMPLETED) IntraVENous, As needed, Starting on Wed01/24/24 at 1637, Intraprocedure 1637 (Given - Provider: Rayshawn Lawson RN) ondansetron (Zofran) injection 4 mg(Linked Group 3) 4 mg, IntraVENous, Every 6 hours PRN, nausea, vomiting, Starting on Wed01/19/24 at 2335, 1st Line. Give IV if patient is unable to take orally. If inadequate response within 60 minutes, proceed to next-line agent or contact provider if no further options ordered. 2337 (See Alternative - Provider: Mary Francisco RN) 0824 ([facility] Hold - Provider: Automatic Transfer Provider - Reason: Patient not available)1029 ([facility] Unhold - Provider: Automatic Transfer Provider) ondansetron [...] (Given - Provider: Mary Francisco RN) 0824 ([facility] Hold - Provider: Automatic Transfer Provider - Reason: Patient not available)1029 ([facility] Unhold - Provider: Automatic Transfer Provider) senna-docusate sodium (Senokot-S) 8.6-50 MG tablet 2 tablet 2 tablet, Oral, Daily PRN, constipation, Starting on 01/23/24 at 0745 0810 (Given - Provider: Sneha Andrea RN) 823 ([facility] Hold - Provider: Automatic Transfer Provider - Reason: Patient not available)1029 ([facility] Unhold - Provider: Automatic Transfer Provider) sodium [...] or less into rate field of order. 823 ([facility] Hold - Provider: Automatic Transfer Provider - Reason: Patient not available)102 ([facility] Unhold - Provider: Automatic Transfer Provider) sodium [...] has been cleared of remaining blood product. 823 ([facility] Hold - Provider: Automatic Transfer Provider - Reason: Patient not available)102 ([facility] Unhold - Provider: Automatic Transfer Provider) sodium chloride 0.9% (NS) flush 10 mL 10 mL, IntraVENous, PRN, line care, Starting on 01/23/24 at 0950, After every IV line use 823 ([facility] Hold - Provider: Automatic Transfer Provider - Reason: Patient not available)102 ([facility] Unhold - Provider: Automatic Transfer Provider) No [...] Galdamez RN) 0914 (Given - Provider: Mike Augustin, CYNTHIA)1259 (Given - Provider: Mike Augustin RN)1700 (Canceled [...] RN) 0914 (New Bag - Provider: Mike Augustin, RN)0944 (Stopped - Provider: iMke Augustin, CYNTHIA) cholecalciferol (Vitamin D-3) tablet 5,000 Units 5,000 Units, Oral, Daily, First dose on 02/19/24 at 0900 0856 (Given - Provider: Regi Galdamez RN) 09 (Given - Provider: Mike Augustin, CYNTHIA) furosemide [...] RN)2051 (Given - Provider: Dorcas Robles RN) 09 (Given - Provider: Mike Augustin, CYNTHIA) ipratropium-albuterol [...] at bedside) 0842 (Given - Provider: Rickie Birmingham, CYNTHIA) atorvastatin (Lipitor) tablet 40 mg 40 mg, Oral, Nightly, First dose on Diane 03/02/24 at 2100 2025 (Given - Provider: Brenda Wooten RN) 2100 [...] Birmingham, CYNTHIA) 0842 (Given - Provider: Rickie Birmingham RN)1344 (Given - Provider: Rickie Birmingham RN)1700 (Not Given - Provider: Rickie Birmingham RN - Reason: Patient not available - Comment: pt at dialysis and will be d/c after getting back to floor) calcium gluconate 10 % injection 1,000 mg (COMPLETED) 1,000 mg, IntraVENous, Once, On Diane 11/28/24 at 0635, For 1 dose, Administer over [...] than 100.4 F (38 C), Starting on Wed03/02/24 at 0753, Administer if oral route cannot [...] 8 hours PRN, nausea, vomiting, Starting on Wed03/02/24 at 0753, 1st Line. If inadequate response [...] to med 10 Units, IntraVENous, Once, On Wed03/02/24 at 0625, For 1 dose And dextrose 50 % solution 25 g (COMPLETED)Jump to med 25 g, IntraVENous, Once, On Diane 03/02/24 at 0625, For 1 dose And POCT glucose check (COMPLETED) Once, On Wed03/02/24 at 0622, For 1 occurrence, Obtain POCT Glucose every 30 minutes following D50 administration times 2 occurrences, then every 1 hr times 2 occurrences, and then AC/HS for 24 hours. And POCT glucose check (COMPLETED) Every 1 hour, First occurrence on Wed03/02/24 at 0722, Last occurrence on Wed03/02/24 at 0800, For 2 occurrences, Obtain POCT Glucose every 30 minutes following D50 administration times 2 occurrences, then every 1 hr times 2 occurrences, and then AC/HS for 24 hours. And POCT glucose check (CANCELED) 4 times daily before meals and at bedtime, First occurrence on Diane 03/02/24 at 0922, Last occurrence on 03/04/24 at 2200, For 3 days, Obtain [...] Carney RN) 1228 (Given - Provider: Kelechi Warren, CYNTHIA) 0844 (Given - Provider: Jenn Little, CYNTHIA) epoetin miller (Epogen) injection 10,000 Units (CANCELED) [...] Carney RN) 0844 (Given - Provider: Jenn Little, CYNTHIA) thiamine (Vitamin B-1) tablet 100 mg 100 mg, oral, Daily, First dose on Wed08/31/24 at 0900 0821 (Given - Provider: Praveen Carney RN) 1230 (Given - Provider: Kelechi Warren RN) 0843 (Given - Provider: Jenn Little, CYNTHIA) vitamin B complex-vitamin C-folic acid (Nephrocaps) capsule 1 capsule 1 capsule, oral, Daily, First dose on Wed09/01/24 at 1530 0821 (Given - Provider: Parveen Carney RN) 1230 (Given - Provider: Kelechi [...] preference? Yes 0526 (Given - Provider: Opal David, RN)1228 (Given - Provider: Kelechi Warren RN)1826 (Given - Provider: Jenn Little, RN) 0055 (Given - Provider: Opal David RN)0843 (Given - Provider: Jenn Little, RN) meclizine (Antivert) tablet 25 mg 25 [...] dialysis)2017 (Given - Provider: Yuly Gonzalez RN) 050 (Given - Provider: Yuly Gonzalez RN)1245 (Given - Provider: Key Leach, CYNTHIA)2016 (Given - Provider: Bee Hoyos RN) 0531 (Given - Provider: Bee Hoyos RN)1402 (Given - Provider: Jessica La RN) amLODIPine (Norvasc) tablet 5 mg 5 [...] - Comment: given)1247 (Given - Provider: Key Leach RN) 1431 (Not Given - Provider: Jessica La [...] PRN. 0751 (Given - Provider: Jamie Medina, RN) 1247 (Given - Provider: Key Leach, RN) 0900 (Canceled Entry - Provider: Automatic [...] ordered. 0459 (Given - Provider: Yuly Gonzalez, CYNTHIA) levETIRAcetam (Keppra) tablet 500 mg 500 mg, Oral, Daily, First dose on Wed11/01/24 at 0930, Do not crush or chew. 1251 (Given - Provider: Kellee Rich RN - Comment: Pt. was in dialysis) 0912 (Given - Provider: Key Leach, CYNTHIA) 0816 (Given - Provider: Jessica La RN) lidocaine-EPINEPHrine (Xylocaine W/EPI) 1 %-[id number] injection 25 mL 25 mL, Injection, Once, On Wed11/10/24 at 1345, For 1 dose 1345 (Canceled Entry - Provider: Automatic Discharge Provider - Comment: Automatically canceled at discontinue of medication order) melatonin tablet 5 mg 5 mg, Oral, Nightly, First dose (after last modification) on Wed11/09/24 at 2100 2017 (Given - Provider: Yuly Gonzalez RN) 2017 (Given - Provider: Bee Hoyos RN) oxyCODONE (Roxicodone) immediate release tablet 5 mg (COMPLETED) 5 mg, Oral, Once, On Wed11/09/24 at 0045, For 1 dose 0045 (Given - Provider: Yuly Gonzalez RN) sevelamer carbonate (Renvela) tablet 800 mg [...] Other)2017 (Given - Provider: Yuly Gonzalez RN) 09 (Given - Provider: Key Leach RN)2045 (Not Given - Provider: Bee Hoyos RN - Reason: Other - Comment: duplicate order) 0818 (Given - Provider: Jessica La, RN) sodium chloride 0.9% (NS) flush 5-40 [...] Gonzalez RN)1323 (Given - Provider: Key Leach RN)2023 (Given - Provider: Bee Hoyos RN) 0532 [...] hemodialysis system down vascular catheter, Starting on Clemons 10/22/24 at 1851, To ARTERIAL lumen. Use [...] lumen) 1307 (Given - Provider: Kimmie Sandhu, CYNTHIA) heparin injection 1,200-2,000 Units 1,200-2,000 Units, IntraCATHeter, As needed, For hemodialysis system down vascular catheter, Starting on Clemons 10/22/24 at 1851, To VENOUS lumen. Use when [...] 0423 0415 (Given - Provider: Yuly Gonzalez, RN) naloxone (Narcan) injection 0.4 mg 0.4 mg, IntraVENous, Every 5 min PRN, opioid reversal, respiratory depression, Starting on Wed10/30/24 at 2059, +++ For RR <10, pinpoint pupils, over sedation for opioid reversal - MUST notify director community organization provider immediately after first dose, may give IM or SQ if no IV access +++ ondansetron (Zofran) injection 4 mg(Linked Group 1) 4 mg, IntraVENous, Every 6 hours PRN, nausea, vomiting, Starting on Wed10/22/24 at 1851, 1st Line. Give IV if patient is unable to take orally. If inadequate response within 60 minutes, proceed to next-line agent or contact provider if no further options ordered. ondansetron ODT (Zofran-ODT) disintegrating tablet 4 mg(Linked Group 1) 4 mg, Oral, Every 8 hours PRN, nausea, vomiting, Starting on Wed10/22/24 at 1851, 1st Line. If inadequate response [...] 0347 (Given - Provider: Yuly Gonzalez, RN) 202 (Given - Provider: Bee Hoyos, CYNTHIA) 0222 (Given - Provider: Bee Hoyos RN)1004 (Given - Provider: Jessica La, RN)1654 [...] and flush line post transfusion, Starting on Clemons 11/05/24 at 0646, For 1 dose, For [...] and flush line post transfusion, Starting on Clemons 11/05/24 at 1146, For 1 dose, For [...] mL, IntraVENous, PRN, line care, Starting on Wed10/22/24 at 1304, For Line Patency: Peripheral IV [...] draws, infusion, or medication administration, Starting on Wed10/23/24 at 1042, For Line Patency: Peripheral IV [...] Travis RN) 0821 (Given - Provider: Jairon Travis, RN) collagenase 250 UNIT/GM ointment (CANCELED) Topical, [...] Travis RN) 0821 (Given - Provider: Jairon Travis, CYNTHIA)1301 (Not Given - Provider: Jairon Travis RN - Reason: Other - Comment: not eating) silver nitrate applicator Topical, Once, On Wed11/12/24 at 1900, For 1 dose, Resident to apply. sulfamethoxazole-trimeth oprim (Bactrim DS) 800-160 MG per tablet 1 tablet (COMPLETED) 1 tablet, Oral, Daily, First dose on Wed11/13/24 at 0900, For 1 day, Suspected Indication (Select all that apply): Surgical Site Infection 907 (Given - Provider: Jairon Travis RN) Xeroform [...] sedation for opioid reversal - MUST notify director community organization provider immediately after first dose, may give [...] Travis RN)1823 (See Alternative - Provider: Jairon Travis, CYNTHIA) ondansetron ODT (Zofran-ODT) disintegrating tablet 4 mg(Linked [...] pain (7-10), moderate pain (4-6), Starting on Sun 8 at 1742 0622 (Given - Provider: Saloni [...] g, Oral, Daily PRN, constipation, Starting on Sun 8 at 1742, 1st line for treatment of constipation - give scheduled if no bowel movement in past 24 hours. Linked Groups Order Group 1: ondansetron ODT (Zofran-ODT) disintegrating tablet 4 mgJump to med 4 mg, Oral, Every 8 hours PRN, nausea, vomiting, Starting on Sun 8 at 1742, 1st Line. If inadequate response within 60 minutes, proceed to next-line agent or contact provider if no further options ordered. Patient should allow tablet to dissolve on tongue. Do not remove from blister pack until just before administering. Or ondansetron (Zofran) injection 4 mgJump to med 4 mg, IntraVENous, Every 6 hours PRN, nausea, vomiting, Starting on Sun 8 at 1742, 1st Line. Give IV if [...] Reason: Patient/family refused)1816 (Given - Provider: Key Leach, RN) 0332 (Not Given - Provider: Jayashree [...] Flynn) 0848 (Given - Provider: Jamie Medina, CYNTHIA) atorvastatin (Lipitor) tablet 40 mg 40 mg, Oral, Nightly, First dose on 12/09/24 at 2100 2043 (Not Given - Provider: Jayashree Petersen RN - Reason: Patient/family refused) 2000 (Given - Provider: Jayashree Petersen RN) B complex-vitamin C-folic acid (Nephrocaps) capsule 1 capsule 1 capsule, Oral, Daily, First dose on 12/09/24 at 0900 0836 (Not Given - Provider: Kellee Rich RN - Reason: Patient/family refused) 0951 (Given - Provider: Shauna Flynn) 0847 (Given - Provider: Jamie Medina RN) cholecalciferol (Vitamin D-3) tablet 5,000 Units 5,000 Units, Oral, Daily, First dose on Wed12/09/24 at 0900 0836 (Not Given - Provider: Kellee Rich RN - Reason: Patient/family refused) 0951 (Given - Provider: Shauna Flynn) 0847 (Given - Provider: Jamie Medina RN) heparin injection 5,000 Units 5,000 Units, SubCUTAneous, Every 8 hours scheduled (3 times per day), First dose on Wed12/13/24 at 1400, On hold since 12/17/2024 at 0736 until manually unheld 0600 (Dose [...] or chew. 0932 (Given - Provider: Jamie Medina RN) levETIRAcetam in sodium chloride (Keppra) IVPB 500 mg (CANCELED) 500 mg, IntraVENous, Administer over 15 Minutes, Daily, First dose on 12/18/24 at 1515 1854 (New Bag - Provider: Kellee Rich, CYNTHIA)1950 (Stopped - Provider: Jayashree Petersen, CYNTHIA) 1126 (New Bag - Provider: Shauna Flynn)1145 (Stopped - Provider: Key Leach RN) Lidocaine 4 % patch 1 patch 1 patch, TransDERmal, Administer over 12 Hours, Daily, First dose on 12/10/24 at 0900, Apply patch to affected area. Patch may remain in place for up to 12 hours in any 24 hour period. 0836 (Not Given - Provider: Kellee Rich RN - Reason: Patient/family refused) 0950 (Not Given - Provider: Shauna Flynn - Reason: Patient/family refused) 0856 (Not Given - Provider: Jamie Medina, RN - Reason: Patient/family refused) meropenem (Merrem) [...] Other) 0509 (Given - Provider: Jayashree Petersen, RN)1816 (Given - Provider: Key Leach RN) 0426 (Given - Provider: Jayashree Petersen, RN)1733 (Not Given - Provider: Jamie Medina, RN - Reason: Other) stomahesive in petrolatum (ET Mix) Topical, Every 8 hours scheduled (3 times per day), First dose on 12/13/24 at 1400, Apply to buttocks 0628 (Given - Provider: Karis Jacobson, CYNTHIA)1508 (Not Given - Provider: Kellee Rich RN [...] Leach RN)1318 (New Bag - Provider: Key Leach RN)1348 (Stopped - Provider: Key Leach RN)2140 (New Bag - Provider: Jayashree Petersen RN)2217 (Stopped - Provider: Jayashree Petersen RN) 0929 (Not Given - Provider: Jamie Medina, CYNTHIA - Reason: See Provider Order) thiamine (Vitamin B1) tablet 100 mg 100 mg, Oral, Daily, First dose on Wed12/20/24 at 0915 0932 (Given - Provider: Jamie Medina, CYNTHIA) PRN Medication Order 12/18/2024 12/19/2024 12/20/2024 alteplase (Cathflo Activase) 2 mg in sterile water 2 mL injection 2 mg, IntraCATHeter, As needed, line care, Starting on Wed12/13/24 at 4, For occluded catheter ports. Instill 2 mg [...] hour of each other unless specifically ordered. 0910 (See Alternative - Provider: Kellee Rich RN)1854 (See Alternative - Provider: Kellee Rich RN) 0031 (See Alternative - Provider: Jayashree Petersen, RN)2000 (See Alternative - Provider: Jayashree Petersen, RN) 424 (See Alternative - Provider: Jayashree Petersen, [...] hour of each other unless specifically ordered. 0910 (Given - Provider: Kellee Rich RN)1853 (Given - Provider: Kellee Rich RN) 30 (Given - Provider: Jayashree Petersen, CYNTHIA)2000 (Given - Provider: Jayashree Petersen, RN) 424 (Given - Provider: Jayashree Petersen, RN) labetalol (Normodyne,Trandate) injection 10 mg 10 mg, IntraVENous, Every 6 hours PRN, high blood pressure, SBP>160. hold for HR< 60, Starting on 12/09/24 at 1112, 1st line 185 (Given - Provider: Kellee Rich RN) 1999 (Given - Provider: Jayashree Petersen, RN) melatonin tablet 5 mg 5 mg, Oral, Nightly PRN, sleep, Starting on 12/13/24 at 1500 naloxone (Narcan) injection 0.4 mg 0.4 mg, IntraVENous, Every 5 min PRN, opioid reversal, respiratory depression, Starting on 12/10/24 at 1911, +++ For RR <10, pinpoint pupils, over sedation for opioid reversal - MUST notify director community organization provider immediately after first dose, may give [...] daily PRN, agitation, first line for agitation, [place] PRN Seroquel for ONLY if danger to [...] and flush line post transfusion, Starting on Clemons 12/17/24 at 0832, For 1 dose, For [...] Mix) Topical, PRN, dry skin, Starting on 12/13/24 at 1202 Linked Groups Order Group 1: [...] BE BASED ON THE PRIMARY CLINICAL RECORDS. [employer] [facility]. provides no warranty or guarantee of the accuracy or completeness of information in this document.
[2025-02-09 07:12] LABS: Hematocrit 25.1 % (37-47); Hemoglobin 8.0 g/dL (12.0-15.0); Immature Granulocytes Count 0.030 X10^3/uL (0.0-0.0); Mean Corp Hgb Conc 31.9 g/dL (32-36); Mean Corpuscular Volume 96.2 fL (81-99); Mean Platelet Vol. 11.0 fl (6.2-12.0); NRBC Flagged by Analyzer 0 % (0-5); Platelet Count 418 K/mm3 (150-450); RBC Distribution Width CV 16.2 % (11.6-14.6); RBC Distribution Width SD 57.4 fl (35.1-43.9); Red Blood Count 2.61 M/mm3 (4.2-5.4); White Blood Count 9.3 K/mm3 (4.4-11.0)
[2025-02-09 07:32] LABS: Anion Gap 9 (5-15); BUN 27 mg/dL (4-19); BUN/Creat Ratio 7.2 RATIO (10-20); Calcium,Total 8.6 mg/dL (7.6-11.0); Carbon Dioxide 30.6 mmol/L (21.0-32.0); Chloride 98 mmol/L (98-108); Glucose 81 mg/dL (70-99); Potassium 4.1 mmol/L (3.3-5.1)
== END ==
LOC: OLS.SANC 05:00
PROVIDERS: Visit Provider Internal Medicine
DX: D64.9 Anemia, unspecified (principal); I10 Essential (primary) hypertension
CPT/HCPCS: 36415; 80048; 85025

== ENCOUNTER → 2025-02-23 05:00 | Outpatient (REF) | payer MEDICARE, SELFPAY ==
--- OUTSIDE RECORDS SUMMARY | 2025-02-23 04:12 | XMS RPT_ITS | CCD ---
Author Organization [facility] Care Team Providers Care Facing End Trimmer Name Role Phone Bonyo Alvarado S Primary [...] Unavailable Primary Care Provider Unavailabl e BICAKODAK DO~[id number], BICAKODAK VERA ittmark g Unavailable SAROJ DENG, RADHA Procedure Practitioner Unav DANIELA Perdue MD Consulting Unavailable JAYANT DO~[id number], JAYANT HEARN Atten floridalma Unavailable ROXIE SPAIN MD Primary Care Unavailable DANIELA THORNTON MD Consulting Unavailable TEZ INSTRUMENT ASSEMBLER, EDWIN Consulting Unavailable TEZ INSTRUMENT ASSEMBLER, EDWIN Consulting Unavailable CECY DENG, NEVA Consulting Unavailable CECY DENG, NEVA Consulting Unavailable ALTHEA DENG, BLANCA Consulting Unavailable ALTHEA DENG, BLANCA Consulting Unavailable LELAND DO, HONORIO David Consulting Unavailabl e LELAND DO, HONORIO A Consulting Unavailabl e ZIDEHSARAI DO, JOSE G P Consulting Unavaila ble ZIDEHSARAI DO, JOSE G P Consulting Unavaila ble BICAKODAK DO~[id number], BICAKODAK VERA Attendin g Unavailable ALTHEA DENG, BLANCA Procedure Practitioner Unavaila KEV Hills MD Consulting Unavailable POLLOCK DO~[id number], KEITH David Admitting Unavailable ROXIE SPAIN MD [...] MD, GERA Emanuel Consulting Unavailabl e BRENT HEAD FILTER PRESS TENDER, KLEVER Consulting Unavailabl e BRENT HEAD FILTER PRESS TENDER, KLEVER Consulting Unavailabl e MAYLIN LEÓN MD Consulting Unava ilable MAYLIN LEÓN MD Consulting Unava ilable LE DO~[id number], RONDA KRISHNA Admitting Unavai lable LE DO~[id number], RONDA KRISHNA Attending ROXIE Mendoza MD Primary Care Unavailable RADHA MCKEON Referring Unavailable ALSMARIELLAAMINTEODORO Y Admitting Unavailable LEVI GAMBINO Attending Unavailjoann Wang MD, Carlos Manuel Q Unavailable Jim DENG, Raffy Unavailable Roxie Spain Primary Care Provider [phone] MO VIEIRA Attending Unavailable VICTOR MANUEL BENITO [...] GABRIEL DELGADO Admitting Unavailable Mukkamalla OLS, Mahaveer Referring Unavail able Mukkamalla FARIHA Mahaveer Attending Unavail able Mukkamalla OLS, Mahaveer Primary Care Unavail able Randy Marks Attending Unavailable Mukkamalla OLS, Mahaveer Primary Care Unavail able Randy Marks Attending Unavailable Mukkamalla OLS, Mahaveer Primary Care Unavail able Randy Marks Attending Unavailable Mukkamalla OLS, Mahaveer Primary Care Unavail able Mukkamalla OLS, Mahaveer Attending Unavail able [facility], [facility] Unavail able Mukkamalla OLS, Mahaveer Attending Unavail able [facility]LS, [facility] Unavail able Mukkamalla OLS, Mahaveer Attending Unavail able Mukkamalla OLS, Mahaveer Attending Unavail able [facility], [facility]avail able [facility], [facility] Referring Unavail able Mukk[facility]alla [facility]LS, [facility] Attending Unavail able Mukkamalla OLS, [facility] Primary Care Unavail able Katsaros OLS, Peter Attending Unavailable Mukkamalla OLS, [facility] Primary Care Unavail able Medications Current Medications [...] mg by mouth daily. Active epoetin miller 95910 unt/ml injectable solution (4 sources) Erythropoiesis-sti mulating Agent Start: 2024 take 81366 [IU] intravenously once daily 20,000 Units, intravenous, User specified (Once per day on Wednesday), First dose (after last modification) on Wed09/07/24 at 2100, Indications: ESRD on Dialysis Start: 09-06-2024 End: 09-06-2024 10,000 Units, intravenous, O nce, On Wed09/06/24 at 1330, For 1 dose, Please give today.. non-dialysis day..hgb 7.6, Indications: ESRD on Dialysis, anemia Start: 09-05-2024 End: 09-06-2024 take 42313 [IU] intravenously once daily 10,000 Units, intravenous, User specified (Once per day on Wednesday), First dose (after last modification) on Wed09/05/24 at 2100, Indications: ESRD on Dialysis Start: 09-02-2024 End: 09-04-2024 inject 11397 [IU] by subcutaneous injection once daily 10,000 [...] daily as needed (first line for agitation, [place] PRN Seroquel for ONLY if danger to self/others/treatment). 12/20/2024 01/19/2025 Active Start: 10-29-2024 End: 10-29-2024 sodium zirconium cyclosilicate 68755 mg powder for oral suspension (3 sources) [...] 5,000 Units, Oral, Daily, First dose on [facility] 02/19/24 at 0900 take 1 capsule by [facility] once daily cholecalciferol (Vitamin D-3) 125 MCG [...] mg docusate sodium 50 mg / sennosides, [facility] 8.6 mg oral tablet (4 sources) Start: [...] End: 12-13-2024 0.5 ml heparin sodium, porcine 58193 unt/ml prefilled syringe (20 sources) Unfractionated Heparin, [...] (2 times per day), First dose on [facility] 02/19/24 at 0900 1 ml HYDROmorphone [...] hour of the oral oxycodone, Starting on Lena 11/12/24 at 1742, If oral and injectable [...] first line, Starting on Wed08/31/24 at 0133 Start: 08-07-2022 End: 08-08-2022 HYDROmorphone [...] Skin and Soft Tissue polyethylene glycol 3350 47147 mg powder for oral solution (18 sources) [...] in past 24 hours. polyethylene glycol 3350 390650 mg / potassium chloride 2970 mg / sodium bicarbonate 6740 mg / sodium chloride 5860 mg / sodium sulfate 01470 mg powder for oral solution (4 sources) [...] 8 hours PRN, nausea, vomiting, Starting on 7/20/25 at 1851, 1st Line. If inadequate response [...] Onset: 4 Episodic Deficiency and other anemia (4 sources) Anemia, unspecified; Translations: [Anemia, unspecified] Onset: [...] 11-11-2024 Episodic Other aftercare (2 sources) Other senior care (current) drug therapy; Translations: [OTH SUPERVISOR RECLAMATION CURRENT DRUG THERAPY] Onset: 5 Episodic Other circulatory disease (2 sources) History of cardiovascular surgery; Translations: [Presence of other vascular implants and grafts] Chronic Other circulatory disease (1 source) Personal history of sudden cardiac arrest; Translations: [PERSONAL HISTORY SUDDEN CARD ARREST] Onset: 5 Episodic Other connective tissue disease (1 source) Presence of right artificial hip joint; Translations: [PRESENCE RIGHT ARTIFICIAL HIP JOINT] Onset: Chronic Other connective tissue disease (1 [...] Range Facility Basic Metabolic Profile (BMP )on 02-09-2025 BUN/CRE 7.2 RATIO Low 10-20 [facility] Comment on above: Order Comment: 407-2 CLEAN CATCH Performed By: #### L 400.0001, L100.0500, M100.2200, L500.4050 #### [facility] [address] [place], [address] Calcium [Mass/Vol] 8.6 mg/dL Normal 7.6-11.0 [facility] Comment on above: Order Comment: 407-2 CLEAN CATCH Performed By: #### L 400.0001, L100.0500, M100.2200, L500.4050 #### [facility] [address] [place], [address] Chloride [Moles/Vol] 98 mmol/L Normal 98-108 [facility] Comment on above: Order Comment: 407-2 CLEAN CATCH Performed By: #### L 400.0001, L100.0500, M100.2200, L500.4050 #### [facility] [address] [place], [address] CO2 [Moles/Vol] 30.6 mmol/L Normal 21.0-32.0 [facility] Comment on above: Order Comment: 407-2 CLEAN CATCH Performed By: #### L 400.0001, L100.0500, M100.2200, L500.4050 #### [facility] [address] [place], [address] Creatinine [Mass/Vol] 3.79 mg/dL High 0.70-1.20 [facility] Comment on above: Order Comment: 407-2 CLEAN CATCH Performed By: #### L 400.0001, L100.0500, M100.2200, L500.4050 #### [facility] [address] [place], [address] GAP 9 Normal 5-15 [facility] Comment on above: Order Comment: 407-2 CLEAN CATCH Performed By: #### L 400.0001, L100.0500, M100.2200, L500.4050 #### [facility] [address] [place], [address] GFR/1.73 sq M.predicted among non-blacks MDRD (S/P/Bld) [Vol rate/Area] 12 mL/min/{1.73_m2} Low >60 [facility] Comment on above: Order Comment: 407-2 CLEAN CATCH Result Comment: mL/m in/1.73m2 CKD-EPI Creatinine Equation (2020) Performed By: #### L 400.0001, L100.0500, M100.2200, L500.4050 #### [facility] [address] [place], [address] Glucose [Mass/Vol] 81 mg/dL Normal 70-99 [facility] Comment on above: Order Comment: 407-2 CLEAN CATCH Performed By: #### L 400.0001, L100.0500, M100.2200, L500.4050 #### [facility] [address] [place], [address] Potassium [Moles/Vol] 4.1 mmol/L Normal 3.3-5.1 [facility] Comment on above: Order Comment: 407-2 CLEAN CATCH Performed By: #### L 400.0001, L100.0500, M100.2200, L500.4050 #### [facility] [address] [place], [address] Sodium [Moles/Vol] 137 mmol/L Normal 133-145 [facility] Comment on above: Order Comment: 407-2 CLEAN CATCH Performed By: #### L 400.0001, L100.0500, M100.2200, L500.4050 #### [facility] [address] [place], [address] Urea nitrogen [Mass/Vol] 27 mg/dL High 4-19 [facility] Comment on above: Order Comment: 407-2 CLEAN CATCH Performed By: #### L 400.0001, L100.0500, M100.2200, L500.4050 #### [facility] [address] [place], [address] CBC W/Diff, Automatedon 11-0 Absolute Lymph 1.38 X10 3/uL Normal 0.83-4.51 [facility] Comment on above: Order Comment: 407-2 Performed By: #### L 400.0001, L100.0500, M100.2200, L500.4050 #### [facility] [address] [place], [address] Absolute Neut 6.6 X10 3/uL Normal 2.0-7.7 [facility] Comment on above: Order Comment: 407-2 Performed By: #### L 400.0001, L100.0500, M100.2200, L500.4050 #### [facility] [address] [place], [address] Basophils/100 WBC (Bld) 0.9 % Normal 0-1 [facility] Comment on above: Order Comment: 407-2 Performed By: #### L 400.0001, L100.0500, M100.2200, L500.4050 #### [facility] [address] [place], [address] Eosinophils/100 WBC (Bld) 4.4 % Normal 0-5 [facility] Comment on above: Order Comment: 407-2 Performed By: #### L 400.0001, L100.0500, M100.2200, L500.4050 #### [facility] [address] [place], [address] Erythrocyte distribution width (RBC) [Ratio] 16.2 % High 11.6-14.6 [facility] Comment on above: Order Comment: 407-2 Performed By: #### L 400.0001, L100.0500, M100.2200, L500.4050 #### [facility] [address] [place], [address] Hematocrit (Bld) [Volume fraction] 25.1 % Low 37-47 [facility] Comment on above: Order Comment: 407-2 Performed By: #### L 400.0001, L100.0500, M100.2200, L500.4050 #### [facility] [address] [place], [address] Hemoglobin (Bld) [Mass/Vol] 8.0 g/dL Low 12.0-15.0 [facility] Comment on above: Order Comment: 407-2 Performed By: #### L 400.0001, L100.0500, M100.2200, L500.4050 #### [facility] [address] [place], [address] IG% 0.300 Normal 0.0-0.9 [facility] Comment on above: Order Comment: 407-2 Result Comment: IG% - Immature Granulocytes (promyelocytes, myelocytes and metamyelocytes) > 1% indicates that a LEFT SHIFT is Present. Performed By: #### L 400.0001, L100.0500, M100.2200, L500.4050 #### [facility] [address] [place], [address] Lymphocytes/100 WBC (Bld) 14.9 % Low 19-41 [facility] Comment on above: Order Comment: 407-2 Performed By: #### L 400.0001, L100.0500, M100.2200, L500.4050 #### [facility] [address] [place], [address] MCH (RBC) [Entitic mass] 30.7 pg Normal 27.0-32.0 [facility] Comment on above: Order Comment: 407-2 Performed By: #### L 400.0001, L100.0500, M100.2200, L500.4050 #### [facility] [address] [place], [address] MCHC (RBC) [Mass/Vol] 31.9 g/dL Low 32-36 [facility] Comment on above: Order Comment: 407-2 Performed By: #### L 400.0001, L100.0500, M100.2200, L500.4050 #### [facility] [address] [place], [address] MCV (RBC) [Entitic vol] 96.2 fL Normal 81-99 [facility] Comment on above: Order Comment: 407-2 Performed By: #### L 400.0001, L100.0500, M100.2200, L500.4050 #### [facility] [address] [place], [address] Monocytes/100 WBC (Bld) 8.9 % Normal 0-10 [facility] Comment on above: Order Comment: 407-2 Performed By: #### L 400.0001, L100.0500, M100.2200, L500.4050 #### [facility] [address] [place], [address] Neutrophils/100 WBC (Bld) 70.6 % High 47-70 [facility] Comment on above: Order Comment: 407-2 Performed By: #### L 400.0001, L100.0500, M100.2200, L500.4050 #### [facility] [address] [place], [address] Nucleated RBC (Bld) [#/Vol] 0 10*3/uL Normal 0-5 [facility] Comment on above: Order Comment: 407-2 Performed By: #### L 400.0001, L100.0500, M100.2200, L500.4050 #### [facility] [address] [place], [address] Platelet mean volume (Bld) [Entitic vol] 11.0 fL Normal 6.2-12.0 [facility] Comment on above: Order Comment: 407-2 Performed By: #### L 400.0001, L100.0500, M100.2200, L500.4050 #### [facility] [address] [place], [address] Platelets (Bld) [#/Vol] 418 10*3/uL Normal 150-450 [facility] Comment on above: Order Comment: 407-2 Performed By: #### L 400.0001, L100.0500, M100.2200, L500.4050 #### [facility] [address] [place], [address] RBC (Bld) [#/Vol] 2.61 10*6/uL Low 4.2-5.4 [facility] Comment on above: Order Comment: 407-2 Performed By: #### L 400.0001, L100.0500, M100.2200, L500.4050 #### [facility] [address] [place], [address] RDW SD 57.4 fl High 35.1-43.9 [facility] Comment on above: Order Comment: 407-2 Performed By: #### L 400.0001, L100.0500, M100.2200, L500.4050 #### [facility] [address] [place], [address] WBC (Bld) [#/Vol] 9.3 10*3/uL Normal 4.4-11.0 [facility] Comment on above: Order Comment: 407-2 Performed By: #### L 400.0001, L100.0500, M100.2200, L500.4050 #### [facility] [address] [place], [address] Urine Cultureon 01-31-2025 URC 407-2 Below infection level. Mixed Gram Positive Organisms [place] Count <1000 MIXC Mixed contaminants. Submit a new specimen if indicated. Normal [facility] Comment on above: Performed By: #### L 400.0001, L100.0500, M100.2200, L500.4050 #### [facility] [address] [place], [address] CBC-Complete Blood Cnt No Di ffon 01-29-2025 Erythrocyte distribution width (RBC) [Ratio] 16.3 % High 11.6-14.6 [facility] Comment on above: Order Comment: 407-2 Performed By: #### L 400.0001, L100.0500, M100.2200, L500.4050 #### [facility] [address] [place], [address] Hematocrit (Bld) [Volume fraction] 27.3 % Low 37-47 [facility] Comment on above: Order Comment: 407-2 Performed By: #### L 400.0001, L100.0500, M100.2200, L500.4050 #### [facility] [address] [place], [address] Hemoglobin (Bld) [Mass/Vol] 8.8 g/dL Low 12.0-15.0 [facility] Comment on above: Order Comment: 407-2 Performed By: #### L 400.0001, L100.0500, M100.2200, L500.4050 #### [facility] [address] [place], [address] MCH (RBC) [Entitic mass] 30.9 pg Normal 27.0-32.0 [facility] Comment on above: Order Comment: 407-2 Performed By: #### L 400.0001, L100.0500, M100.2200, L500.4050 #### [facility] [address] [place], [address] MCHC (RBC) [Mass/Vol] 32.2 g/dL Normal 32-36 [facility] Comment on above: Order Comment: 407-2 Performed By: #### L 400.0001, L100.0500, M100.2200, L500.4050 #### [facility] [address] [place], [address] MCV (RBC) [Entitic vol] 95.8 fL Normal 81-99 [facility] Comment on above: Order Comment: 407-2 Performed By: #### L 400.0001, L100.0500, M100.2200, L500.4050 #### [facility] [address] [place], [address] Platelet mean volume (Bld) [Entitic vol] 10.8 fL Normal 6.2-12.0 [facility] Comment on above: Order Comment: 407-2 Performed By: #### L 400.0001, L100.0500, M100.2200, L500.4050 #### [facility] [address] [place], [address] Platelets (Bld) [#/Vol] 477 10*3/uL High 150-450 [facility] Comment on above: Order Comment: 407-2 Performed By: #### L 400.0001, L100.0500, M100.2200, L500.4050 #### [facility] [address] [place], [address] RBC (Bld) [#/Vol] 2.85 10*6/uL Low 4.2-5.4 [facility] Comment on above: Order Comment: 407-2 Performed By: #### L 400.0001, L100.0500, M100.2200, L500.4050 #### [facility] [address] [place], [address] RDW SD 57.8 fl High 35.1-43.9 [facility] Comment on above: Order Comment: 407-2 Performed By: #### L 400.0001, L100.0500, M100.2200, L500.4050 #### [facility] [address] [place], [address] WBC (Bld) [#/Vol] 12.5 10*3/uL High 4.4-11.0 [facility] Comment on above: Order Comment: 407-2 Performed By: #### L 400.0001, L100.0500, M100.2200, L500.4050 #### [facility] [address] [place], [address] Comprehensive Metabolic Prof [facility] 01-29-2025 Albumin [Mass/Vol] 2.9 g/dL Low 3.4-4.8 [facility] Comment on above: Order Comment: 407-2 Performed By: #### L 400.0001, L100.0500, M100.2200, L500.4050 #### [facility] [address] [place], [address] Albumin/Globulin [Mass ratio] 0.7 {ratio} Low 0.9-2.4 [facility] Comment on above: Order Comment: 407-2 Performed By: #### L 400.0001, L100.0500, M100.2200, L500.4050 #### [facility] [address] [place], [address] ALK PHOS 888 U/L High 35-104 [facility] Comment on above: Order Comment: 407-2 Performed By: #### L 400.0001, L100.0500, M100.2200, L500.4050 #### [facility] [address] [place], [address] ALT [Catalytic activity/Vol] 203 U/L High <=34 [facility] Comment on above: Order Comment: 407-2 Performed By: #### L 400.0001, L100.0500, M100.2200, L500.4050 #### [facility] [address] [place], [address] AST [Catalytic activity/Vol] 237 U/L High <=31 [facility] Comment on above: Order Comment: 407-2 Performed By: #### L 400.0001, L100.0500, M100.2200, L500.4050 #### [facility] [address] [place], [address] Bilirubin [Mass/Vol] 0.50 mg/dL Normal 0.00-1.30 [facility] Comment on above: Order Comment: 407-2 Performed By: #### L 400.0001, L100.0500, M100.2200, L500.4050 #### [facility] [address] [place], [address] BUN/CRE 6.8 RATIO Low 10-20 [facility] Comment on above: Order Comment: 407-2 Performed By: #### L 400.0001, L100.0500, M100.2200, L500.4050 #### [facility] [address] [place], [address] Calcium [Mass/Vol] 8.3 mg/dL Normal 7.6-11.0 [facility] Comment on above: Order Comment: 407-2 Performed By: #### L 400.0001, L100.0500, M100.2200, L500.4050 #### [facility] [address] [place], [address] Chloride [Moles/Vol] 98 mmol/L Normal 98-108 [facility] Comment on above: Order Comment: 407-2 Performed By: #### L 400.0001, L100.0500, M100.2200, L500.4050 #### [facility] [address] [place], [address] CO2 [Moles/Vol] 26.8 mmol/L Normal 21.0-32.0 [facility] Comment on above: Order Comment: 407-2 Performed By: #### L 400.0001, L100.0500, M100.2200, L500.4050 #### [facility] [address] [place], [address] Creatinine [Mass/Vol] 5.74 mg/dL High 0.70-1.20 [facility] Comment on above: Order Comment: 407-2 Performed By: #### L 400.0001, L100.0500, M100.2200, L500.4050 #### [facility] [address] [place], [address] GAP 14 Normal 5-15 [facility] Comment on above: Order Comment: 407-2 Performed By: #### L 400.0001, L100.0500, M100.2200, L500.4050 #### [facility] [address] [place], [address] GFR/1.73 sq M.predicted among non-blacks MDRD (S/P/Bld) [Vol rate/Area] 7 mL/min/{1.73_m2} Low >60 [facility] Comment on above: Order Comment: 407-2 Result Comment: mL/m in/1.73m2 CKD-EPI Creatinine Equation (2020) Performed By: #### L 400.0001, L100.0500, M100.2200, L500.4050 #### [facility] [address] [place], [address] Globulin (S) [Mass/Vol] 4.0 g/dL Normal 2.2-4.2 [facility] Comment on above: Order Comment: 407-2 Performed By: #### L 400.0001, L100.0500, M100.2200, L500.4050 #### [facility] [address] [place], [address] Glucose [Mass/Vol] 71 mg/dL Normal 70-99 [facility] Comment on above: Order Comment: 407-2 Performed By: #### L 400.0001, L100.0500, M100.2200, L500.4050 #### [facility] [address] [place], [address] Potassium [Moles/Vol] 3.5 mmol/L Normal 3.3-5.1 [facility] Comment on above: Order Comment: 407-2 Performed By: #### L 400.0001, L100.0500, M100.2200, L500.4050 #### [facility] [address] [place], [address] Sodium [Moles/Vol] 139 mmol/L Normal 133-145 [facility] Comment on above: Order Comment: 407-2 Performed By: #### L 400.0001, L100.0500, M100.2200, L500.4050 #### [facility] [address] [place], [address] T PROT 6.9 g/dL Normal 5.9-8.4 [facility] Comment on above: Order Comment: 407-2 Performed By: #### L 400.0001, L100.0500, M100.2200, L500.4050 #### [facility] [address] [place], [address] Urea nitrogen [Mass/Vol] 39 mg/dL High 4-19 [facility] Comment on above: Order Comment: 407-2 Performed By: #### L 400.0001, L100.0500, M100.2200, L500.4050 #### [facility] [address] [place], [address] Urinalysis, Completeon 01-29 RBC 0-5 SEEN Normal 0-5 [facility] Comment on above: Order Comment: 407-2 CLEAN CATCH Performed By: #### L 400.0001, L100.0500, M100.2200, L500.4050 #### [facility] [address] [place], [address] EPI,SQUAMOUS 0-5 SEEN Normal 5-10 [facility] Comment on above: Order Comment: 407-2 CLEAN CATCH Performed By: #### L 400.0001, L100.0500, M100.2200, L500.4050 #### [facility] [address] [place], [address] BACTERIA 0 SEEN Normal None Seen [facility] Comment on above: Order Comment: 407-2 CLEAN CATCH Performed By: #### L 400.0001, L100.0500, M100.2200, L500.4050 #### [facility] [address] [place], [address] Mucus Ql (Urine sed) 0 SEEN Normal [facility] Comment on above: Order Comment: 407-2 CLEAN CATCH Performed By: #### L 400.0001, L100.0500, M100.2200, L500.4050 #### [facility] [address] [place], [address] WBC 0 SEEN Normal 0-5 [facility] Comment on above: Order Comment: -2 CLEAN CATCH Performed By: #### L 400.0001, L100.0500, M100.2200, L500.4050 #### [facility] [address] [place], [address] CBC-Complete Blood Cnt No Di ffon 01-26-2025 HCT Normal 37-47 [facility] Comment on above: Order Comment: -2 Result Comment: CLOT MOHINDER PER TEVIN IN THE LAB Performed By: #### L 400.0001, L100.0500, M100.2200, L500.4050 #### [facility] [address] [place], [address] HGB Normal 12.0-15.0 [facility] Comment on above: Order Comment: Result Comment: CLOT MOHINDER PER TEVIN IN THE LAB Performed By: #### L 400.0001, L100.0500, M100.2200, L500.4050 #### [facility] [address] [place], [address] MCH Normal 27.0-32.0 [facility] Comment on above: Order Comment: Result Comment: CLOT MOHINDER PER TEVIN IN THE LAB Performed By: #### L 400.0001, L100.0500, M100.2200, L500.4050 #### [facility] [address] [place], [address] MCHC Normal 32-36 [facility] Comment on above: Order Comment: 2 Result Comment: CLOT MOHINDER PER TEVIN IN THE LAB Performed By: #### L 400.0001, L100.0500, M100.2200, L500.4050 #### [facility] [address] [place], [address] MCV Normal 81-99 [facility] Comment on above: Order Comment: 407-2 Result Comment: CLOT MOHINDER PER TEVIN IN THE LAB Performed By: #### L 400.0001, L100.0500, M100.2200, L500.4050 #### [facility] [address] [place], [address] PLT Normal 150-450 [facility] Comment on above: Order Comment: Result Comment: CLOT MOHINDER PER TEVIN IN THE LAB Performed By: #### L 400.0001, L100.0500, M100.2200, L500.4050 #### [facility] [address] [place], [address] RBC Normal 4.2-5.4 [facility] Comment on above: Order Comment: Result Comment: CLOT MOHINDER PER TEVIN IN THE LAB Performed By: #### L 400.0001, L100.0500, M100.2200, L500.4050 #### [facility] [address] [place], [address] RDW CV Normal 11.6-14.6 [facility] Comment on above: Order Comment: Result Comment: CLOT MOHINDER PER TEVIN IN THE LAB Performed By: #### L 400.0001, L100.0500, M100.2200, L500.4050 #### [facility] [address] [place], [address] RDW SD Normal 35.1-43.9 [facility] Comment on above: Order Comment: Result Comment: CLOT MOHINDER PER TEVIN IN THE LAB Performed By: #### L 400.0001, L100.0500, M100.2200, L500.4050 #### [facility] [address] [place], [address] WBC Normal 4.4-11.0 [facility] Comment on above: Order Comment: Result Comment: CLOT MOHINDER PER TEVIN IN THE LAB Performed By: #### L 400.0001, L100.0500, M100.2200, L500.4050 #### [facility] [address] [place], [address] Basic Metabolic Profile (BMP )on 01-25-2025 BUN/CRE 6.2 RATIO Low 10-20 [facility] Comment on above: Order Comment: 407-2 Performed By: #### L 400.0001, L100.0500, M100.2200, L500.4050 #### [facility] [address] [place], [address] Calcium [Mass/Vol] 8.7 mg/dL Normal 7.6-11.0 [facility] Comment on above: Order Comment: 407-2 Performed By: #### L 400.0001, L100.0500, M100.2200, L500.4050 #### [facility] [address] [place], [address] Chloride [Moles/Vol] 96 mmol/L Low 98-108 [facility] Comment on above: Order Comment: 407-2 Performed By: #### L 400.0001, L100.0500, M100.2200, L500.4050 #### [facility] [address] [place], [address] CO2 [Moles/Vol] 25.7 mmol/L Normal 21.0-32.0 [facility] Comment on above: Order Comment: 407-2 Performed By: #### L 400.0001, L100.0500, M100.2200, L500.4050 #### [facility] [address] [place], [address] Creatinine [Mass/Vol] 3.80 mg/dL High 0.70-1.20 [facility] Comment on above: Order Comment: 407-2 Performed By: #### L 400.0001, L100.0500, M100.2200, L500.4050 #### [facility] [address] [place], [address] GAP 13 Normal 5-15 [facility] Comment on above: Order Comment: 407-2 Performed By: #### L 400.0001, L100.0500, M100.2200, L500.4050 #### [facility] [address] [place], [address] GFR/1.73 sq M.predicted among non-blacks MDRD (S/P/Bld) [Vol rate/Area] 12 mL/min/{1.73_m2} Low >60 [facility] Comment on above: Order Comment: 407-2 Result Comment: mL/m in/1.73m2 CKD-EPI Creatinine Equation (2020) Performed By: #### L 400.0001, L100.0500, M100.2200, L500.4050 #### [facility] [address], [address] Glucose [Mass/Vol] 100 mg/dL High 70-99 [facility] Comment on above: Order Comment: 407-2 Performed By: #### L 400.0001, L100.0500, M100.2200, L500.4050 #### [facility] [address] [place], [address] Potassium [Moles/Vol] 3.6 mmol/L Normal 3.3-5.1 [facility] Comment on above: Order Comment: 407-2 Result Comment: Hemo lysis present, Results??could be affected. ?? Performed By: #### L 400.0001, L100.0500, M100.2200, L500.4050 #### [facility] [address] [place], [address] Sodium [Moles/Vol] 135 mmol/L Normal 133-145 [facility] Comment on above: Order Comment: 407-2 Performed By: #### L 400.0001, L100.0500, M100.2200, L500.4050 #### [facility] [address], [address] Urea nitrogen [Mass/Vol] 24 mg/dL High 4-19 [facility] Comment on above: Order Comment: 407-2 Performed By: #### L 400.0001, L100.0500, M100.2200, L500.4050 #### [facility] [address] [place], [address] CBC-Complete Blood Cnt No Di ffon 01-25-2025 HCT Normal 37-47 [facility] Comment on above: Order Comment: 407- Result Comment: QNS PER TRAVIS IN LAB 01/25/25 @0930 Performed By: #### L 400.0001, L100.0500, M100.2200, L500.4050 #### [facility] [address] [place], [address] HGB Normal 12.0-15.0 [facility] Comment on above: Order Comment: 407- Result Comment: QNS PER TRAVIS IN LAB 01/25/25 @0930 Performed By: #### L 400.0001, L100.0500, M100.2200, L500.4050 #### [facility] [address] [place], [address] MCH Normal 27.0-32.0 [facility] Comment on above: Order Comment: 407-2 Result Comment: QNS PER TRAVIS IN LAB 01/25/25 @0930 Performed By: #### L 400.0001, L100.0500, M100.2200, L500.4050 #### [facility] [address] [place], [address] MCHC Normal 32-36 [facility] Comment on above: Order Comment: 407-2 Result Comment: QNS PER TRAVIS IN LAB 01/25/25 @0930 Performed By: #### L 400.0001, L100.0500, M100.2200, L500.4050 #### [facility] [address], [address] MCV Normal 81-99 [facility] Comment on above: Order Comment: 407-2 Result Comment: QNS PER TRAVIS IN LAB 01/25/25 @0930 Performed By: #### L 400.0001, L100.0500, M100.2200, L500.4050 #### [facility] [address] [place], [address] PLT Normal 150-450 [facility] Comment on above: Order Comment: 407-2 Result Comment: QNS PER TRAVIS IN LAB 01/25/25 @0930 Performed By: #### L 400.0001, L100.0500, M100.2200, L500.4050 #### [facility] [address] [place], [address] RBC Normal 4.2-5.4 [facility] Comment on above: Order Comment: 407-2 Result Comment: QNS PER TRAVIS IN LAB 01/25/25 @0930 Performed By: #### L 400.0001, L100.0500, M100.2200, L500.4050 #### [facility] [address] [place], [address] RDW CV Normal 11.6-14.6 [facility] Comment on above: Order Comment: 407-2 Result Comment: QNS PER TRAVIS IN LAB 01/25/25 @0930 Performed By: #### L 400.0001, L100.0500, M100.2200, L500.4050 #### [facility] [address] [place], [address] RDW SD Normal 35.1-43.9 [facility] Comment on above: Order Comment: 407-2 Result Comment: QNS PER TRAVIS IN LAB 01/25/25 @0930 Performed By: #### L 400.0001, L100.0500, M100.2200, L500.4050 #### [facility] [address] [place], [address] WBC Normal 4.4-11.0 [facility] Comment on above: Order Comment: 407-2 Result Comment: QNS PER TRAVIS IN LAB 01/25/25 @0930 Performed By: #### L 400.0001, L100.0500, M100.2200, L500.4050 #### [facility] [address] [place], [address] Basic Metabolic Profile (BMP )on 01-09-2025 BUN/CRE 10.2 RATIO Normal 10-20 [facility] Comment on above: Order Comment: 407-2 Performed By: #### L 400.0001, L100.0500, M100.2200, L500.4050 #### [facility] [address] [place], [address] Calcium [Mass/Vol] 8.2 mg/dL Normal 7.6-11.0 [facility] Comment on above: Order Comment: 407-2 Performed By: #### L 400.0001, L100.0500, M100.2200, L500.4050 #### [facility] [address] [place], [address] Chloride [Moles/Vol] 102 mmol/L Normal 98-108 [facility] Comment on above: Order Comment: 407-2 Performed By: #### L 400.0001, L100.0500, M100.2200, L500.4050 #### [facility] [address] [place], [address] CO2 [Moles/Vol] 28.4 mmol/L Normal 21.0-32.0 [facility] Comment on above: Order Comment: 407-2 Performed By: #### L 400.0001, L100.0500, M100.2200, L500.4050 #### [facility] [address] [place], [address] Creatinine [Mass/Vol] 4.00 mg/dL High 0.70-1.20 [facility] Comment on above: Order Comment: 407-2 Performed By: #### L 400.0001, L100.0500, M100.2200, L500.4050 #### [facility] [address] [place], [address] GAP 11 Normal 5-15 [facility] Comment on above: Order Comment: 407-2 Performed By: #### L 400.0001, L100.0500, M100.2200, L500.4050 #### [facility] [address] [place], [address] GFR/1.73 sq M.predicted among non-blacks MDRD (S/P/Bld) [Vol rate/Area] 11 mL/min/{1.73_m2} Low >60 [facility] Comment on above: Order Comment: 407-2 Result Comment: mL/m in/1.73m2 CKD-EPI Creatinine Equation (2020) Performed By: #### L 400.0001, L100.0500, M100.2200, L500.4050 #### [facility] [address] [place], [address] Glucose [Mass/Vol] 76 mg/dL Normal 70-99 [facility] Comment on above: Order Comment: 407-2 Performed By: #### L 400.0001, L100.0500, M100.2200, L500.4050 #### [facility] [address] [place], [address] Potassium [Moles/Vol] 4.4 mmol/L Normal 3.3-5.1 [facility] Comment on above: Order Comment: 407-2 Performed By: #### L 400.0001, L100.0500, M100.2200, L500.4050 #### [facility] [address] [place], [address] Sodium [Moles/Vol] 142 mmol/L Normal 133-145 [facility] Comment on above: Order Comment: 407-2 Performed By: #### L 400.0001, L100.0500, M100.2200, L500.4050 #### [facility] [address] [place], [address] Urea nitrogen [Mass/Vol] 41 mg/dL High - [facility] Comment on above: Order Comment: 407-2 Performed By: #### L 400.0001, L100.0500, M100.2200, L500.4050 #### [facility] [address] [place], [address] Basic Metabolic Profile (BMP )on 01-08-2025 BUN Normal 07-22 [facility] Comment on above: Order Comment: 407-2 Result Comment: UTO X2 Performed By: #### L 400.0001, L100.0500, M100.2200, L500.4050 #### [facility] [address] [place], [address] BUN/CRE Normal 01-22 [facility] Comment on above: Order Comment: 407-2 Result Comment: UTO X2 Performed By: #### L 400.0001, L100.0500, M100.2200, L500.4050 #### [facility] [address] [place], [address] Calcium Normal 7.6-11.0 [facility] Comment on above: Order Comment: 407-2 Result Comment: UTO X2 Performed By: #### L 400.0001, L100.0500, M100.2200, L500.4050 #### [facility] [address] [place], [address] CL Normal 98-108 [facility] Comment on above: Order Comment: 407-2 Result Comment: UTO X2 Performed By: #### L 400.0001, L100.0500, M100.2200, L500.4050 #### [facility] [address] [place], [address] CO2 Normal 21.0-32.0 [facility] Comment on above: Order Comment: - Result Comment: UTO X2 Performed By: #### L 400.0001, L100.0500, M100.2200, L500.4050 #### [facility] [address] [place], [address] CREAT,SERUM Normal 0.70-1.20 [facility] Comment on above: Order Comment: -2 Result Comment: UTO X2 Performed By: #### L 400.0001, L100.0500, M100.2200, L500.4050 #### [facility] [address] [place], [address] eGFR Normal >60 [facility] Comment on above: Order Comment: -2 Result Comment: UTO X2 Performed By: #### L 400.0001, L100.0500, M100.2200, L500.4050 #### [facility] [address] [place], [address] GAP Normal 5-15 [facility] Comment on above: Order Comment: -2 Result Comment: UTO X2 Performed By: #### L 400.0001, L100.0500, M100.2200, L500.4050 #### [facility] [address] [place], [address] GLU Normal 70-99 [facility] Comment on above: Order Comment: -2 Result Comment: UTO X2 Performed By: #### L 400.0001, L100.0500, M100.2200, L500.4050 #### [facility] [address] [place], [address] Potassium Normal 3.3-5.1 [facility] Comment on above: Order Comment: 407-2 Result Comment: UTO X2 Performed By: #### L 400.0001, L100.0500, M100.2200, L500.4050 #### [facility] [address] [place], [address] Basic Metabolic Profile (BMP) Normal 133-145 [facility] Comment on above: Order Comment: 407-2 Result Comment: UTO X2 Performed By: #### L 400.0001, L100.0500, M100.2200, L500.4050 #### [facility] [address] [place], [address] CPK Total, Creatine Kinaseon 01-05-2025 CPK TOTAL 39 U/L Normal 24-195 [facility] Comment on above: Order Comment: 407-2 Performed By: #### L 400.0001, L100.0500, M100.2200, L500.4050 #### [facility] [address] [place], [address] Comprehensive Metabolic Prof ilon 01-05-2025 Albumin [Mass/Vol] 2.0 g/dL Low 3.4-4.8 [facility] Comment on above: Order Comment: 407-2 Performed By: #### L 400.0001, L100.0500, M100.2200, L500.4050 #### [facility] [address] [place], [address] Albumin/Globulin [Mass ratio] 0.5 {ratio} Low 0.9-2.4 [facility] Comment on above: Order Comment: 407-2 Performed By: #### L 400.0001, L100.0500, M100.2200, L500.4050 #### [facility] [address] [place], [address] ALK PHOS 271 U/L High 35-104 [facility] Comment on above: Order Comment: 407-2 Performed By: #### L 400.0001, L100.0500, M100.2200, L500.4050 #### [facility] [address] [place], [address] ALT [Catalytic activity/Vol] 17 U/L Normal <=34 [facility] Comment on above: Order Comment: 407-2 Performed By: #### L 400.0001, L100.0500, M100.2200, L500.4050 #### [facility] [address] [place], [address] AST [Catalytic activity/Vol] 44 U/L High <=31 [facility] Comment on above: Order Comment: 407-2 Performed By: #### L 400.0001, L100.0500, M100.2200, L500.4050 #### [facility] [address] [place], [address] Bilirubin [Mass/Vol] 0.27 mg/dL Normal 0.00-1.30 [facility] Comment on above: Order Comment: 407-2 Performed By: #### L 400.0001, L100.0500, M100.2200, L500.4050 #### [facility] [address] [place], [address] BUN/CRE 8.4 RATIO Low 10-20 [facility] Comment on above: Order Comment: 407-2 Performed By: #### L 400.0001, L100.0500, M100.2200, L500.4050 #### [facility] [address] [place], [address] Calcium [Mass/Vol] 7.8 mg/dL Normal 7.6-11.0 [facility] Comment on above: Order Comment: 407-2 Performed By: #### L 400.0001, L100.0500, M100.2200, L500.4050 #### [facility] [address] [place], [address] Chloride [Moles/Vol] 97 mmol/L Low 98-108 [facility] Comment on above: Order Comment: 407-2 Performed By: #### L 400.0001, L100.0500, M100.2200, L500.4050 #### [facility] [address], [address] CO2 [Moles/Vol] 30.5 mmol/L Normal 21.0-32.0 [facility] Comment on above: Order Comment: 407-2 Performed By: #### L 400.0001, L100.0500, M100.2200, L500.4050 #### [facility] [address] [place], [address] Creatinine [Mass/Vol] 2.94 mg/dL High 0.70-1.20 [facility] Comment on above: Order Comment: 407-2 Performed By: #### L 400.0001, L100.0500, M100.2200, L500.4050 #### [facility] [address] [place], [address] GAP 9 Normal 5-15 [facility] Comment on above: Order Comment: 407-2 Performed By: #### L 400.0001, L100.0500, M100.2200, L500.4050 #### [facility] [address] [place], [address] GFR/1.73 sq M.predicted among non-blacks MDRD (S/P/Bld) [Vol rate/Area] 16 mL/min/{1.73_m2} Low >60 [facility] Comment on above: Order Comment: 407-2 Result Comment: mL/m in/1.73m2 CKD-EPI Creatinine Equation (2020) Performed By: #### L 400.0001, L100.0500, M100.2200, L500.4050 #### [facility] [address] [place], [address] Globulin (S) [Mass/Vol] 3.6 g/dL Normal 2.2-4.2 [facility] Comment on above: Order Comment: 407-2 Performed By: #### L 400.0001, L100.0500, M100.2200, L500.4050 #### [facility] [address] [place], [address] Glucose [Mass/Vol] 68 mg/dL Low 70-99 [facility] Comment on above: Order Comment: 407-2 Performed By: #### L 400.0001, L100.0500, M100.2200, L500.4050 #### [facility] [address] [place], [address] Potassium [Moles/Vol] 2.9 mmol/L Low 3.3-5.1 [facility] Comment on above: Order Comment: 407-2 Performed By: #### L 400.0001, L100.0500, M100.2200, L500.4050 #### [facility] [address] [place], [address] Sodium [Moles/Vol] 137 mmol/L Normal 133-145 [facility] Comment on above: Order Comment: 407-2 Performed By: #### L 400.0001, L100.0500, M100.2200, L500.4050 #### [facility] [address] [place], [address] T PROT 5.6 g/dL Low 5.9-8.4 [facility] Comment on above: Order Comment: 407-2 Performed By: #### L 400.0001, L100.0500, M100.2200, L500.4050 #### [facility] [address] [place], [address] Urea nitrogen [Mass/Vol] 25 mg/dL High 4-19 [facility] Comment on above: Order Comment: 407-2 Performed By: #### L 400.0001, L100.0500, M100.2200, L500.4050 #### [facility] [address] [place], [address] Lipid Profileon 01-05-2025 CHOL:HDL 2.38 Normal [facility] Comment on above: Order Comment: 407-2 Performed By: #### L 400.0001, L100.0500, M100.2200, L500.4050 #### [facility] [address] [place], [address] Cholesterol [Mass/Vol] 106 mg/dL Normal <=200 [facility] Comment on above: Order Comment: 407-2 Result Comment: Chol esterol level, Desirable <200 mg/dL Borderline high cholesterol 200-239 mg/dL High cholesterol >=240 mg/dL Recommendations of the NCEP Adult Treatment Panel for the following risk-cutoff thresholds for the [place] population. Performed By: #### L 400.0001, L100.0500, M100.2200, L500.4050 #### [facility] [address] [place], [address] Cholesterol in HDL [Mass/Vol] 45 mg/dL Normal [facility] Comment on above: Order Comment: 407-2 Result Comment: Bri onal Cholesterol Education Program (NCEP) guidelines: <40 mg/dL: Low HDL-cholesterol (major risk factor for CHD) >= 60 mg/dL: High HDL-cholesterol (negative risk factor for CHD) HDL-cholesterol is affected by a number of factors, e.g. smoking, exercise, hormones, sex and age. Performed By: #### L 400.0001, L100.0500, M100.2200, L500.4050 #### [facility] [address] [place], [address] Cholesterol in LDL [Mass/Vol] 50 mg/dL Normal [facility] Comment on above: Order Comment: 407-2 Result Comment: Bord idqvve=996-442 mg/dL Higher Kcjg=385 mg/dL or greater Friedwald Equation for LDL-C Performed By: #### L 400.0001, L100.0500, M100.2200, L500.4050 #### [facility] [address] [place], [address] Cholesterol in VLDL [Mass/Vol] 12 mg/dL Normal 5-40 [facility] Comment on above: Order Comment: 407-2 Performed By: #### L 400.0001, L100.0500, M100.2200, L500.4050 #### [facility] [address] [place], [address] Triglyceride [Mass/Vol] 58 mg/dL Normal [facility] Comment on above: Order Comment: 407-2 Result Comment: The drugs N-Acetylcysteine and Metamizole may falsely depress this assay. Normal range: <150 mg/dL Borderline High: 150-199 mg/dL High: 200-499 mg/dL Very High: >500 mg/dL Performed By: #### L 400.0001, L100.0500, M100.2200, L500.4050 #### [facility] [address] [place], [address] ED Nursing Noteon 12-28-2024 ED Nursing Note Normal [facility] ED Provider Noteon ED Provider Note Normal [facility] Laboratory - Chemistry and C hemistry - challengeon 12-28-2024 Glucose [Mass/Vol] 80 mg/dL 70 - 100 mg/dL [facility] No Panel Informationon 12-28 Interpretation and review of laboratory results Normal [facility] Performed by: Santa Kirk, [address] [place] [address] [place] [address] CLIA ID: [id number] [facility] Basic Metabolic Profile (BMP )on 12-25-2024 CO2 [Moles/Vol] 24.2 mmol/L Normal 21.0-32.0 [facility] Comment on above: Result Comment: AMENDED REPORT 12/25/24 1007 CO2 previously reported as: 24.1 mmol/L Performed By: #### L 100.0500, L500.2500 #### [facility] [address] [place], [address] GAP 14 Normal 5-15 [facility] Comment on above: Performed By: #### L 100.0500, L500.2500 #### [facility] [address] [place], [address] CBC-Complete Blood Cnt No Di ffon 12-25-2024 Erythrocyte distribution width (RBC) [Ratio] 17.0 % High 11.6-14.6 [facility] Comment on above: Performed By: #### L 100.0500, L500.2500 #### [facility] [address] [place], [address] Hematocrit (Bld) [Volume fraction] 26.1 % Low 37-47 [facility] Comment on above: Performed By: #### L 100.0500, L500.2500 #### [facility] [address] [place], [address] Hemoglobin (Bld) [Mass/Vol] 8.5 g/dL Low 12.0-15.0 [facility] Comment on above: Performed By: #### L 100.0500, L500.2500 #### [facility] [address] [place], [address] MCH (RBC) [Entitic mass] 31.5 pg Normal 27.0-32.0 [facility] Comment on above: Performed By: #### L 100.0500, L500.2500 #### [facility] [address] [place], [address] MCHC (RBC) [Mass/Vol] 32.6 g/dL Normal 32-36 [facility] Comment on above: Performed By: #### L 100.0500, L500.2500 #### [facility] [address] [place], [address] MCV (RBC) [Entitic vol] 96.7 fL Normal 81-99 [facility] Comment on above: Performed By: #### L 100.0500, L500.2500 #### [facility] [address] [place], [address] Platelet mean volume (Bld) [Entitic vol] 10.9 fL Normal 6.2-12.0 [facility] Comment on above: Performed By: #### L 100.0500, L500.2500 #### [facility] [address] [place], [address] Platelets (Bld) [#/Vol] 435 10*3/uL Normal 150-450 [facility] Comment on above: Performed By: #### L 100.0500, L500.2500 #### [facility] [address] [place], [address] RBC (Bld) [#/Vol] 2.70 10*6/uL Low 4.2-5.4 [facility] Comment on above: Performed By: #### L 100.0500, L500.2500 #### [facility] [address] [place], [address] RDW SD 58.0 fl High 35.1-43.9 [facility] Comment on above: Performed By: #### L 100.0500, L500.2500 #### [facility] [address] [place], [address] WBC (Bld) [#/Vol] 11.2 10*3/uL High 4.4-11.0 [facility] Comment on above: Performed By: #### L 100.0500, L500.2500 #### [facility] [address] [place], [address] [id number] 12-20-2024 [id number] Transportation confirmed for 630. Called and spoke to brother Deshawn with update on time of discharge. RN and community support professional notified via secure chat. Normal [facility] [id number] Discharge med list transmitted to [facility] via [facility] per TCC request. Normal [facility] [id number] Normal [facility] [id number] Discharge order note d in epic. [facility] tasked to set up cot transport for return to [facility]. Normal [facility] CBC (HEMOGRAM)on 12-20-2024 Erythrocyte distribution width (RBC) [Ratio] 15.9 % High 11.5-15.0 [facility] Comment on above: Performed By: #### L AB294 ####Waredresser: PHILLY FRANCO ([phone])[address] Hematocrit (Bld) [Volume fraction] 20.9 % Low 35.0-47.0 [facility] Comment on above: Performed By: #### L AB294 ####Waredresser: PHILLY FRANCO ([phone])[address] Hemoglobin (Bld) [Mass/Vol] 7.1 g/dL Low 11.7-16.0 [facility] Comment on above: Performed By: #### L AB294 ####Waredresser: PHILLY FRANCO ([phone])[address] MCH (RBC) [Entitic mass] 31.4 pg Normal 26.0-34.0 [facility] Comment on above: Performed By: #### L AB294 ####Waredresser: PHILLY FRANCO ([phone])[address] MCHC 34.0 % Normal 30.5-36.0 [facility] Comment on above: Performed By: #### L AB294 ####Waredresser: PHILLY FRANCO ([phone])[facility])[address] [place] [address] MCV (RBC) [Entitic vol] 92.5 fL Normal 77.0-99.0 [facility] Comment on above: Performed By: #### L AB294 ####Waredresser: PHILLY FRANCO ([phone])[facility])[address] [place] [address] Platelet mean volume (Bld) [Entitic vol] 10.8 fL Normal 9.0-12.7 [facility] Comment on above: Performed By: #### L AB294 ####Waredresser: PHILLY FRANCO ([phone])[facility])[address] [place] [address] Platelets (Bld) [#/Vol] 237 10*3/uL Normal 140-440 [facility] Comment on above: Performed By: #### L AB294 ####Waredresser: PHILLY FRANCO ([phone])[facility])[address] [place] [address] RBC (Bld) [#/Vol] 2.26 10*6/uL Low 3.80-5.20 [facility] Comment on above: Performed By: #### L AB294 ####Waredresser: PHILLY FRANCO ([phone])[facility])[address] [place] [address] WBC (Bld) [#/Vol] 12.1 10*3/uL High 3.6-10.7 [facility] Comment on above: Performed By: #### L AB294 ####Waredresser: PHILLY FRANCO ([phone])[facility])[address] [place] [address] CBC panel Auto (Bld)on 12-20 Erythrocyte distribution width (RBC) [Ratio] 15.9 % High 11.5 - 15.0 % [facility] Hematocrit (Bld) [Volume fraction] 20.9 % Low 35.0 - 47.0 % [facility] Hemoglobin (Bld) [Mass/Vol] 7.1 g/dL Low 11.7 - 16.0 g/dL [facility] Interpretation and review of laboratory results Abnormal [facility] MCH (RBC) [Entitic mass] 31.4 pg 26.0 - 34.0 pg [facility] MCHC (RBC) [Mass/Vol] 34 % 30.5 - 36.0 % [facility] MCV (RBC) [Entitic vol] 92.5 fL 77.0 - 99.0 fL [facility] Platelet mean volume (Bld) [Entitic vol] 10.8 fL 9.0 - 12.7 fL [facility] Platelets (Bld) [#/Vol] 237 10*3/uL 140 - 440 10*3/uL [facility] RBC (Bld) [#/Vol] 2.26 10*6/uL Low 3.80 - 5.2 0 10*6/uL [facility] WBC (Bld) [#/Vol] 12.1 10*3/uL High 3.6 - 10.7 10*3/uL [facility] COMPREHENSIVE METABOLIC PANE Fam 12-20-2024 Albumin [Mass/Vol] 1.1 g/dL Low 3.4-4.8 [facility] Comment on above: Performed By: #### L AB17 ####Waredresser: PHILLY FRANCO ([phone])[facility] ([facility])[address] [place] [address] ALP [Catalytic activity/Vol] 155 U/L High 40-150 [facility] Comment on above: Performed By: #### L AB17 ####Waredresser: PHILLY FRANCO ([phone])[facility])[address] [place] [address] ALT [Catalytic activity/Vol] U/L Normal <30 [facility] Comment on above: Performed By: #### L AB17 ####Waredresser: PHILLY FRANCO ([phone])[facility])[address] [place] [address] Anion gap [Moles/Vol] 7 mmol/L Normal 3-13 [facility] Comment on above: Performed By: #### L AB17 ####Waredresser: PHILLY FRANCO ([phone])[facility])[address] [place] [address] AST [Catalytic activity/Vol] 57 U/L High <34 [facility] Comment on above: Result Comment: TCPo tential interference from hemolysis Performed By: #### L AB17 ####Waredresser: PHILLY FRANCO ([phone])[facility] ([facility])[address] [place] [address] Bilirubin [Mass/Vol] 0.6 mg/dL Normal <1.2 [facility] Comment on above: Performed By: #### L AB17 ####Waredresser: PHILLY FRANCO ([phone])[facility] ([facility])[address] [place] [address] Calcium [Mass/Vol] 6.5 mg/dL Low 8.8-10.0 [facility] Comment on above: Performed By: #### L AB17 ####Waredresser: PHILLY FRANCO ([phone])[facility] ([facility])[address] [place] [address] Chloride [Moles/Vol] 106 mmol/L Normal 98-107 [facility] Comment on above: Performed By: #### L AB17 ####Waredresser: PHILLY FRANCO ([phone])[facility])[address] [place] [address] CO2 [Moles/Vol] 21 mmol/L Low 23-31 [facility] Comment on above: Performed By: #### L AB17 ####Waredresser: PHILLY FRANCO ([phone])[facility])[address] [place] [address] Creatinine [Mass/Vol] 2.84 mg/dL High 0.57-1.11 [facility] Comment on above: Performed By: #### L AB17 ####Waredresser: PHILLY FRANCO ([phone])[facility])[address] [place] [address] [place] GLOMERULAR FILTRATION RATE ML/MIN/1.73 SQ M.PREDICTED 16.9 mL/min/1.73m*2 Low >60.0 [facility] Comment on above: Result Comment: Calc ulation based on the Chronic Kidney Disease Epidemiology Collaboration (CKD-EPI) equation refit without adjustment for race Performed By: #### L AB17 ####Waredresser: PHILLY FRANCO ([phone])[facility] ([facility])[address] [place] [address] [place] Glucose [Mass/Vol] 72 mg/dL Low 82-115 [facility] Comment on above: Performed By: #### L AB17 ####Waredresser: PHILLY FRANCO ([phone])[facility])[address] [place] [address] Potassium [Moles/Vol] 4.3 mmol/L Normal 3.5-5.1 [facility] Comment on above: Result Comment: [facility] potassium values may be up to 0.5 mmol/L lower than serum values. Performed By: #### L AB17 ####Waredresser: PHILLY FRANCO ([phone])[facility])[address] [place] [address] Protein [Mass/Vol] 5.1 g/dL Low 6.4-8.3 [facility] Comment on above: Performed By: #### L AB17 ####Waredresser: PHILLY FRANCO ([phone])[facility])[address] [place] [address] [place] Sodium [Moles/Vol] 134 mmol/L Low 136-145 [facility] Comment on above: Performed By: #### L AB17 ####Waredresser: PHILLY FRANCO ([phone])[facility])[address] [place] [address] [place] Urea nitrogen [Mass/Vol] 15 mg/dL Normal 9-23 [facility] Comment on above: Performed By: #### L AB17 ####Waredresser: PHILLY FRANCO ([phone])[facility] ([facility])[address] [place] [address] Comprehensive metabolic 1998 panelon 12-20-2024 Albumin [Mass/Vol] 1.1 g/dL Low 3.4 - 4.8 g/dL [facility] ALP [Catalytic activity/Vol] 155 U/L High 40 - 150 U/L [facility] ALT [Catalytic activity/Vol] U/L NINF - 30 U/L [facility] Anion gap [Moles/Vol] 7 mmol/L 3 - 13 mmol/L [facility] AST [Catalytic activity/Vol] 57 U/L High NINF - 34 U/L [facility] Bilirubin [Mass/Vol] 0.6 mg/dL NINF - 1.2 mg/dL [facility] Calcium [Mass/Vol] 6.5 mg/dL Low 8.8 - 10. 0 mg/dL [facility] Chloride [Moles/Vol] 106 mmol/L 98 - 10 7 mmol/L [facility] CO2 [Moles/Vol] 21 mmol/L Low 23 - 31 mmol/L [facility] Creatinine [Mass/Vol] 2.84 mg/dL High 0.57 - 1.11 mg/dL [facility] GFR/1.73 sq M.predicted (S/P/Bld) [Vol rate/Area] 16.9 mL/min Low - PINF [facility] Glucose [Mass/Vol] 72 mg/dL Low 82 - 115 mg/dL [facility] Interpretation and review of laboratory results Abnormal [facility] Potassium [Moles/Vol] 4.3 mmol/L 3.5 - 5.1 mmol/L [facility] Protein [Mass/Vol] 5.1 g/dL Low 6.4 - 8.3 g/dL [facility] Sodium [Moles/Vol] 134 mmol/L Low 136 - 145 mmol/L [facility] Urea nitrogen [Mass/Vol] 15 mg/dL 9 - 23 mg/dL [facility] - Chemistry and C hemistry - challengeon 12-20-2024 Glucose [Mass/Vol] 72 mg/dL 70 - 100 mg/dL [facility] Glucose [Mass/Vol] 73 mg/dL 70 - 100 mg/dL [facility] Glucose [Mass/Vol] 88 mg/dL 70 - 100 mg/dL [facility] No Panel Informationon 12-20 Interpretation and review of laboratory results Normal [facility] Interpretation and review of laboratory results Normal [facility] Interpretation and review of laboratory results Normal [facility] Nursing Noteon 12-20-2024 Nursing Note Attempted to call report to [facility]. No answer. Normal [facility] Nursing Note Discharge order placed. IVS removed. Transport here to take pt to SNF. Normal [facility] Nursing Note Normal [facility] Progress Noteon 12-20-2024 Progress Note Normal [facility] Progress Note Normal [facility] Progress Note Normal [facility] Progress Note Normal [facility] CBC (HEMOGRAM)on 12-19-2024 Erythrocyte distribution width (RBC) [Ratio] 15.5 % High 11.5-15.0 [facility] Comment on above: Performed By: #### L [id number] ####Waredresser: PHILLY FRANCO ([phone])[address] Hematocrit (Bld) [Volume fraction] 23.6 % Low 35.0-47.0 [facility] Comment on above: Performed By: #### L [id number] ####Waredresser: PHILLY FRANCO ([phone])[address] Hemoglobin (Bld) [Mass/Vol] 8.2 g/dL Low 11.7-16.0 [facility] Comment on above: Performed By: #### L [id number] ####Waredresser: PHILLY FRANCO ([phone])[address] MCH (RBC) [Entitic mass] 30.9 pg Normal 26.0-34.0 [facility] Comment on above: Performed By: #### L AB294 ####Waredresser: PHILLY FRANCO ([phone])[address] MCHC 34.7 % Normal 30.5-36.0 [facility] Comment on above: Performed By: #### L AB294 ####Waredresser: PHILLY FRANCO ([phone])[facility] ([facility])[address] [place] [address] MCV (RBC) [Entitic vol] 89.1 fL Normal 77.0-99.0 [facility] Comment on above: Performed By: #### L [id number] ####Waredresser: PHILLY FRANCO ([phone])[facility] ([facility])[address] [place] [address] Platelet mean volume (Bld) [Entitic vol] 10.7 fL Normal 9.0-12.7 [facility] Comment on above: Performed By: #### L [id number] ####Waredresser: PHILLY FRANCO ([phone])[facility] ([facility])[address] [place] [address] Platelets (Bld) [#/Vol] 274 10*3/uL Normal 140-440 [facility] Comment on above: Performed By: #### L [id number] ####Waredresser: PHILLY FRANCO ([phone])[facility] ([facility])[address] [place] [address] RBC (Bld) [#/Vol] 2.65 10*6/uL Low 3.80-5.20 [facility] Comment on above: Performed By: #### L [id number] ####Waredresser: PHILLY FRANCO ([phone])[facility] ([facility])[address] [place] [address] WBC (Bld) [#/Vol] 15.7 10*3/uL High 3.6-10.7 [facility] Comment on above: Performed By: #### L [id number] ####Waredresser: PHILLY FRANCO ([phone])[facility] ([facility])[address] [place] [address] CBC panel Auto (Bld)on 12-19 Erythrocyte distribution width (RBC) [Ratio] 15.5 % High 11.5 - 15.0 % [facility] Hematocrit (Bld) [Volume fraction] 23.6 % Low 35.0 - 47.0 % [facility] Hemoglobin (Bld) [Mass/Vol] 8.2 g/dL Low 11.7 - 16.0 g/dL [facility] Interpretation and review of laboratory results Abnormal [facility] MCH (RBC) [Entitic mass] 30.9 pg 26.0 - 34.0 pg [facility] MCHC (RBC) [Mass/Vol] 34.7 % 30.5 - 36.0 % [facility] MCV (RBC) [Entitic vol] 89.1 fL 77.0 - 99.0 fL [facility] Platelet mean volume (Bld) [Entitic vol] 10.7 fL 9.0 - 12.7 fL [facility] Platelets (Bld) [#/Vol] 274 10*3/uL 140 - 440 10*3/uL [facility] RBC (Bld) [#/Vol] 2.65 10*6/uL Low 3.80 - 5.2 0 10*6/uL [facility] WBC (Bld) [#/Vol] 15.7 10*3/uL High 3.6 - 10.7 10*3/uL [facility] COMPREHENSIVE METABOLIC PANE Fam 12-19-2024 Albumin [Mass/Vol] 1.2 g/dL Low 3.4-4.8 [facility] Comment on above: Performed By: #### L AB17 ####Waredresser: PHILLY FRANCO ([phone])[facility] ([facility])[address] [place] [address] ALP [Catalytic activity/Vol] 144 U/L Normal 40-150 [facility] Comment on above: Performed By: #### L AB17 ####Waredresser: PHILLY FRANCO ([phone])[address] ALT [Catalytic activity/Vol] U/L Normal <30 [facility] Comment on above: Performed By: #### L AB17 ####Waredresser: PHILLY FRANCO ([phone])[facility] [place] [address] Anion gap [Moles/Vol] 8 mmol/L Normal 3-13 [facility] Comment on above: Performed By: #### L AB17 ####Waredresser: PHILLY FRANCO ([phone])[facility] ([facility])[address] [place] [address] AST [Catalytic activity/Vol] 49 U/L High <34 [facility] Comment on above: Performed By: #### L AB17 ####Waredresser: PHILLY FRANCO ([phone])[facility] ([facility])[address] [place] [address] Bilirubin [Mass/Vol] 0.5 mg/dL Normal <1.2 [facility] Comment on above: Performed By: #### L AB17 ####Waredresser: PHILLY FRANCO ([phone])[facility] ([facility])[address] [place] [address] Calcium [Mass/Vol] 7.3 mg/dL Low 8.8-10.0 [facility] Comment on above: Performed By: #### L AB17 ####Waredresser: PHILLY FRANCO ([phone])[facility] ([facility])[address] [place] [address] Chloride [Moles/Vol] 102 mmol/L Normal 98-107 [facility] Comment on above: Performed By: #### L AB17 ####Waredresser: PHILLY FRANCO ([phone])[facility] ([facility])[address] [place] [address] [place] CO2 [Moles/Vol] 25 mmol/L Normal 23-31 [facility] Comment on above: Performed By: #### L AB17 ####Waredresser: PHILLY FRANCO ([phone])[facility] ([facility])[address] [place] [address] Creatinine [Mass/Vol] 2.25 mg/dL High 0.57-1.11 [facility] Comment on above: Performed By: #### L AB17 ####Waredresser: PHILLY FRANCO ([phone])[facility])[address] [place] [address] [place] GLOMERULAR FILTRATION RATE ML/MIN/1.73 SQ M.PREDICTED 22.4 mL/min/1.73m*2 Low >60.0 [facility] Comment on above: Result Comment: Calc ulation based on the Chronic Kidney Disease Epidemiology Collaboration (CKD-EPI) equation refit without adjustment for race Performed By: #### L AB17 ####Waredresser: PHILLY FRANCO ([phone])[facility] ([facility])[address] [place] [address] [place] Glucose [Mass/Vol] 73 mg/dL Low 82-115 [facility] Comment on above: Performed By: #### L AB17 ####Waredresser: PHILLY FRANCO ([phone])[facility])[address] [place] [address] Potassium [Moles/Vol] 3.9 mmol/L Normal 3.5-5.1 [facility] Comment on above: Result Comment: [facility] potassium values may be up to 0.5 mmol/L lower than serum values. Performed By: #### L AB17 ####Waredresser: PHILLY FRANCO ([phone])[facility])[address] [place] [address] [place] Protein [Mass/Vol] 5.3 g/dL Low 6.4-8.3 [facility] Comment on above: Performed By: #### L AB17 ####Waredresser: PHILLY FRANCO ([phone])[facility])[address] [place] [address] [place] Sodium [Moles/Vol] 135 mmol/L Low 136-145 [facility] Comment on above: Performed By: #### L AB17 ####Waredresser: PHILLY FRANCO ([phone])[facility])[address] [place] [address] [place] Urea nitrogen [Mass/Vol] 11 mg/dL Normal 9-23 [facility] Comment on above: Performed By: #### L AB17 ####Waredresser: PHILLY FRANCO ([phone])[facility] ([address] Comprehensive metabolic 1998 panelOrdered By: Mak Hobbs on 12-19-2024 Albumin [Mass/Vol] 1.2 g/dL Low 3.4 - 4.8 g/dL [facility] ALP [Catalytic activity/Vol] 144 U/L 40 - 150 U/L [facility] ALT [Catalytic activity/Vol] U/L NINF - 30 U/L [facility] Anion gap [Moles/Vol] 8 mmol/L 3 - 13 mmol/L [facility] AST [Catalytic activity/Vol] 49 U/L High NINF - 34 U/L [facility] Bilirubin [Mass/Vol] 0.5 mg/dL NINF - 1.2 mg/dL [facility] Calcium [Mass/Vol] 7.3 mg/dL Low 8.8 - 10. 0 mg/dL [facility] Chloride [Moles/Vol] 102 mmol/L 98 - 10 7 mmol/L [facility] CO2 [Moles/Vol] 25 mmol/L 23 - 31 mmol/L [facility] Creatinine [Mass/Vol] 2.25 mg/dL High 0.57 - 1.11 mg/dL [facility] GFR/1.73 sq M.predicted (S/P/Bld) [Vol rate/Area] 22.4 mL/min Low - PINF [facility] Glucose [Mass/Vol] 73 mg/dL Low 82 - 115 mg/dL [facility] Interpretation and review of laboratory results Abnormal [facility] Potassium [Moles/Vol] 3.9 mmol/L 3.5 - 5.1 mmol/L [facility] Protein [Mass/Vol] 5.3 g/dL Low 6.4 - 8.3 g/dL [facility] Sodium [Moles/Vol] 135 mmol/L Low 136 - 145 mmol/L [facility] Urea nitrogen [Mass/Vol] 11 mg/dL 9 - 23 mg/dL [facility] HEMOGLOBIN AND HEMATOCRIT, B LOODon 12-19-2024 Hematocrit (Bld) [Volume fraction] 24.0 % Low 35.0-47.0 [facility] Comment on above: Performed By: #### L [id number] ####Waredresser: PHILLY FRANCO ([phone])[facility] ([facility])[address] [place] [address] Hemoglobin (Bld) [Mass/Vol] 8.1 g/dL Low 11.7-16.0 [facility] Comment on above: Performed By: #### L AB753 ####Waredresser: PHILLY FRANCO ([phone])[facility] [place] [address] Hemoglobin (Bld) [Mass/Vol]o n 12-19-2024 Hematocrit (Bld) [Volume fraction] 24 % Low 35.0 - 47.0 % [facility] Interpretation and review of laboratory results Abnormal [facility] - Chemistry and C hemistry - challengeon 12-19-2024 Glucose [Mass/Vol] 84 mg/dL 70 - 100 mg/dL [facility] Glucose [Mass/Vol] 57 mg/dL Low 70 - 100 mg/dL [facility] Glucose [Mass/Vol] 67 mg/dL Low 70 - 100 mg/dL [facility] Laboratory - Hematology and Cell countson 12-19-2024 Hemoglobin (Bld) [Mass/Vol] 8.1 g/dL Low 11.7 - 16.0 g/dL [facility] No Panel Informationon 12-19 Interpretation and review of laboratory results Normal [facility] Interpretation and review of laboratory results Abnormal [facility] Interpretation and review of laboratory results Abnormal [facility] Nursing Noteon 12-19-2024 Nursing Note Normal [facility] Progress Noteon 12-19-2024 Progress Note Normal [facility] Progress Note Normal [facility] Progress Note Normal [facility] Progress Note Normal [facility] Progress Note [facility] Progress Note Normal [facility] Progress Note Normal [facility] [id number] 12-18-2024 [id number] Normal [facility] [id number] 12-18-2024 [id number] Normal [facility] Anesthesia Noteon 12-18-2024 Anesthesia Note Normal [facility] Anesthesia Note Normal [facility] CBC (HEMOGRAM)on 12-18-2024 Erythrocyte distribution width (RBC) [Ratio] 14.9 % Normal 11.5-15.0 [facility] Comment on above: Performed By: #### L [id number] ####Waredresser: PHILLY FRANCO ([phone])[facility])[address] [place] [address] Hematocrit (Bld) [Volume fraction] 25.3 % Low 35.0-47.0 [facility] Comment on above: Performed By: #### L [id number] ####Waredresser: PHILLY FRANCO ([phone])[facility])[address] [place] [address] Hemoglobin (Bld) [Mass/Vol] 9.0 g/dL Low 11.7-16.0 [facility] Comment on above: Performed By: #### L [id number] ####Waredresser: PHILLY FRANCO ([phone])[facility] ([facility])[address] [place] [address] MCH (RBC) [Entitic mass] 30.8 pg Normal 26.0-34.0 [facility] Comment on above: Performed By: #### L [id number] ####Waredresser: PHILLY FRANCO ([phone])[facility])[address] [place] [address] MCHC 35.6 % Normal 30.5-36.0 [facility] Comment on above: Performed By: #### L [id number] ####Waredresser: PHILLY FRANCO ([phone])[facility] ([facility])[address] [place] [address] MCV (RBC) [Entitic vol] 86.6 fL Normal 77.0-99.0 [facility] Comment on above: Performed By: #### L [id number] ####Waredresser: PHILLY FRANCO ([phone])[facility])[address] [place] [address] Platelet mean volume (Bld) [Entitic vol] 10.7 fL Normal 9.0-12.7 [facility] Comment on above: Performed By: #### L [id number] ####Waredresser: PHILLY FRANCO ([phone])[facility] ([facility])[address] [place] [address] Platelets (Bld) [#/Vol] 327 10*3/uL Normal 140-440 [facility] Comment on above: Performed By: #### L [id number] ####Waredresser: PHILLY FRANCO ([phone])[facility] ([facility])[address] [place] [address] RBC (Bld) [#/Vol] 2.92 10*6/uL Low 3.80-5.20 [facility] Comment on above: Performed By: #### L [id number] ####Waredresser: PHILLY FRANCO ([phone])[facility] ([facility])[address] [place] [address] WBC (Bld) [#/Vol] 19.3 10*3/uL High 3.6-10.7 [facility] Comment on above: Performed By: #### L [id number] ####Waredresser: PHILLY FRANCO ([phone])[facility] ([facility])[address] [place] [address] CBC panel Auto (Bld)on 12-18 Erythrocyte distribution width (RBC) [Ratio] 14.9 % 11.5 - 15.0 % [facility] Hematocrit (Bld) [Volume fraction] 25.3 % Low 35.0 - 47.0 % [facility] Hemoglobin (Bld) [Mass/Vol] 9 g/dL Low 11.7 - 16.0 g/dL [facility] Interpretation and review of laboratory results Abnormal [facility] MCH (RBC) [Entitic mass] 30.8 pg 26.0 - 34.0 pg [facility] MCHC (RBC) [Mass/Vol] 35.6 % 30.5 - 36.0 % [facility] MCV (RBC) [Entitic vol] 86.6 fL 77.0 - 99.0 fL [facility] Platelet mean volume (Bld) [Entitic vol] 10.7 fL 9.0 - 12.7 fL [facility] Platelets (Bld) [#/Vol] 327 10*3/uL 140 - 440 10*3/uL [facility] RBC (Bld) [#/Vol] 2.92 10*6/uL Low 3.80 - 5.2 0 10*6/uL [facility] WBC (Bld) [#/Vol] 19.3 10*3/uL High 3.6 - 10.7 10*3/uL [facility] COMPREHENSIVE METABOLIC PANE Fam 12-18-2024 Albumin [Mass/Vol] 1.3 g/dL Low 3.4-4.8 [facility] Comment on above: Performed By: #### L AB17 ####Waredresser: PHILLY FRANCO ([phone])[facility] ([facility])[address] [place] [address] ALP [Catalytic activity/Vol] 136 U/L Normal 40-150 [facility] Comment on above: Performed By: #### L AB17 ####Waredresser: PHILLY FRANCO ([phone])[facility] ([facility])[address] [place] [address] [place] ALT [Catalytic activity/Vol] 6 U/L Normal <30 [facility] Comment on above: Performed By: #### L AB17 ####Waredresser: PHILLY FRANCO ([phone])[facility] ([facility])[address] [place] [address] Anion gap [Moles/Vol] 6 mmol/L Normal 3-13 [facility] Comment on above: Performed By: #### L AB17 ####Waredresser: PHILLY FRANCO ([phone])[facility] ([facility])[address] [place] [address] [place] AST [Catalytic activity/Vol] 51 U/L High <34 [facility] Comment on above: Performed By: #### L AB17 ####Waredresser: PHILLY FRANCO ([phone])[facility] ([facility])[address] [place] [address] [place] Bilirubin [Mass/Vol] 0.5 mg/dL Normal <1.2 [facility] Comment on above: Performed By: #### L AB17 ####Waredresser: PHILLY FRANCO ([phone])[facility])[address] [place] [address] Calcium [Mass/Vol] 7.3 mg/dL Low 8.8-10.0 [facility] Comment on above: Performed By: #### L AB17 ####Waredresser: PHILLY FRANCO ([phone])[facility] ([facility])[address] [place] [address] Chloride [Moles/Vol] 97 mmol/L Low 98-107 [facility] Comment on above: Performed By: #### L AB17 ####Waredresser: PHILLY FRANCO ([phone])[facility] ([facility])[address] [place] [address] CO2 [Moles/Vol] 25 mmol/L Normal 23-31 [facility] Comment on above: Performed By: #### L AB17 ####Waredresser: PHILLY FRANCO ([phone])[facility] ([facility])[address] [place] [address] Creatinine [Mass/Vol] 3.46 mg/dL High 0.57-1.11 [facility] Comment on above: Performed By: #### L AB17 ####Waredresser: PHILLY FRANCO ([phone])[facility])[address] [place] [address] [place] GLOMERULAR FILTRATION RATE ML/MIN/1.73 SQ M.PREDICTED 13.4 mL/min/1.73m*2 Low >60.0 [facility] Comment on above: Result Comment: Calc ulation based on the Chronic Kidney Disease Epidemiology Collaboration (CKD-EPI) equation refit without adjustment for race Performed By: #### L AB17 ####Waredresser: PHILLY FRANCO ([phone])[facility] ([facility])[address] [place] [address] [place] Glucose [Mass/Vol] 89 mg/dL Normal 82-115 [facility] Comment on above: Performed By: #### L AB17 ####Waredresser: PHILLY FRANCO ([phone])[facility])[address] [place] [address] Potassium [Moles/Vol] 4.4 mmol/L Normal 3.5-5.1 [facility] Comment on above: Result Comment: [facility] potassium values may be up to 0.5 mmol/L lower than serum values. Performed By: #### L AB17 ####Waredresser: PHILLY FRANCO ([phone])[facility] ([facility])[address] [place] [address] Protein [Mass/Vol] 5.5 g/dL Low 6.4-8.3 [facility] Comment on above: Performed By: #### L AB17 ####Waredresser: PHILLY FRANCO ([phone])[facility])[address] [place] [address] Sodium [Moles/Vol] 128 mmol/L Low 136-145 [facility] Comment on above: Performed By: #### L AB17 ####Waredresser: PHILLY FRANCO ([phone])[facility])[address] [place] [address] Urea nitrogen [Mass/Vol] 18 mg/dL Normal 9-23 [facility] Comment on above: Performed By: #### L AB17 ####Waredresser: PHILLY FRANCO ([phone])[facility])[address] [place] [address] Comprehensive metabolic 1998 panelon 12-18-2024 Albumin [Mass/Vol] 1.3 g/dL Low 3.4 - 4.8 g/dL [facility] ALP [Catalytic activity/Vol] 136 U/L 40 - 150 U/L [facility] ALT [Catalytic activity/Vol] 6 U/L NINF - 30 U/L [facility] Anion gap [Moles/Vol] 6 mmol/L 3 - 13 mmol/L [facility] AST [Catalytic activity/Vol] 51 U/L High NINF - 34 U/L [facility] Bilirubin [Mass/Vol] 0.5 mg/dL NINF - 1.2 mg/dL [facility] Calcium [Mass/Vol] 7.3 mg/dL Low 8.8 - 10. 0 mg/dL [facility] Chloride [Moles/Vol] 97 mmol/L Low 98 - 10 7 mmol/L [facility] CO2 [Moles/Vol] 25 mmol/L 23 - 31 mmol/L [facility] Creatinine [Mass/Vol] 3.46 mg/dL High 0.57 - 1.11 mg/dL [facility] GFR/1.73 sq M.predicted (S/P/Bld) [Vol rate/Area] 13.4 mL/min Low - PINF [facility] Glucose [Mass/Vol] 89 mg/dL 82 - 115 mg/dL [facility] Interpretation and review of laboratory results Abnormal [facility] Potassium [Moles/Vol] 4.4 mmol/L 3.5 - 5.1 mmol/L [facility] Protein [Mass/Vol] 5.5 g/dL Low 6.4 - 8.3 g/dL [facility] Sodium [Moles/Vol] 128 mmol/L Low 136 - 145 mmol/L [facility] Urea nitrogen [Mass/Vol] 18 mg/dL 9 - 23 mg/dL [facility] HEMOGLOBIN AND HEMATOCRIT, B [facility] 12-18-2024 Hematocrit (Bld) [Volume fraction] 22.6 % Low 35.0-47.0 [facility] Comment on above: Performed By: #### L [id number] ####Waredresser: PHILLY [phone])[address] Hemoglobin (Bld) [Mass/Vol] 7.9 g/dL Low 11.7-16.0 [facility] Comment on above: Performed By: #### L AB753 ####Waredresser: PHILLY [phone])[address] Hematocrit (Bld) [Volume fraction] 25.1 % Low 35.0-47.0 [facility] Comment on above: Performed By: #### L AB753 ####Waredresser: PHILLY [id number])[facility] ([facility])[address] [place] [address] Hemoglobin (Bld) [Mass/Vol] 8.8 g/dL Low 11.7-16.0 [facility] Comment on above: Performed By: #### L AB753 ####Waredresser: PHILLY FRANCO ([phone])[facility] ([facility])[address] [place] [address] Hemoglobin (Bld) [Mass/Vol]o n 12-18-2024 Hematocrit (Bld) [Volume fraction] 22.6 % Low 35.0 - 47.0 % [facility] Interpretation and review of laboratory results Abnormal [facility] Hematocrit (Bld) [Volume fraction] 25.1 % Low 35.0 - 47.0 % [facility] Interpretation and review of laboratory results Abnormal [facility] Laboratory - Chemistry and C hemistry - challengeon 12-18-2024 Glucose [Mass/Vol] 93 mg/dL 70 - 100 mg/dL [facility] Glucose [Mass/Vol] 83 mg/dL 70 - 100 mg/dL [facility] Laboratory - Hematology and Cell countson 12-18-2024 Hemoglobin (Bld) [Mass/Vol] 7.9 g/dL Low 11.7 - 16.0 g/dL [facility] Hemoglobin (Bld) [Mass/Vol] 8.8 g/dL Low 11.7 - 16.0 g/dL [facility] MR Brain WO contraston 12-18 [facility] Radiology Study observation (narrative) [facility] MR Brain WO contrastOrdered By: Andrea Gonzales on 12-18-2024 [facility] Work Phone: MR Cervical spine WO and W c ontrast Indu 12-18-2024 [facility] RADIOLOGY [facility] Radiology Study observation (narrative) [facility] No Panel Informationon 12-18 Interpretation and review of laboratory results Normal [facility] Interpretation and review of laboratory results Normal [facility] Nursing Noteon 12-18-2024 Nursing Note Normal [facility] Progress Noteon 12-18-2024 Progress Note Vancomycin therapy h as been discontinued by Dr. Shamar Bearden on 12/18/24. Thank you for the consult. Pharmacy signing off for vancomycin dosing. Jess Byrd [facility], Date: 12/18/24 Time: 3:54 PM Normal [facility] Progress Note Normal [facility] Progress Note Normal [facility] Progress Note Normal [facility] Progress Note Normal [facility] Progress Note Normal [facility] Progress Note Normal [facility] Progress Note Normal [facility] Progress Note Normal [facility] Bacteria identified Cx Nom ( Bld)on 12-17-2024 Interpretation and review of laboratory results Normal [facility] CBC (HEMOGRAM)on 12-17-2024 Erythrocyte distribution width (RBC) [Ratio] 17.6 % High 11.5-15.0 [facility] Comment on above: Performed By: #### L [id number] ####Waredresser: PHILLY FRANCO ([phone])[address] Hematocrit (Bld) [Volume fraction] 12.6 % Low 35.0-47.0 [facility] Comment on above: Performed By: #### L [id number] ####Waredresser: PHILLY FRANCO ([phone])[address] Hemoglobin (Bld) [Mass/Vol] 4.2 g/dL Critically low 11.7-16.0 [facility] Comment on above: Performed By: #### L [id number] ####Waredresser: PHILLY FRANCO ([phone])[address] MCH (RBC) [Entitic mass] 30.2 pg Normal 26.0-34.0 [facility] Comment on above: Performed By: #### L [id number] ####Waredresser: PHILLY [id number])[address] MCHC 33.3 % Normal 30.5-36.0 [facility] Comment on above: Performed By: #### L [id number] ####Waredresser: PHILLY FRANCO ([phone])[facility])[address] [place] [address] MCV (RBC) [Entitic vol] 90.6 fL Normal 77.0-99.0 [facility] Comment on above: Performed By: #### L [id number] ####Waredresser: PHILLY FRANCO ([phone])[facility] ([facility])[address] [place] [address] Platelet mean volume (Bld) [Entitic vol] 11.0 fL Normal 9.0-12.7 [facility] Comment on above: Performed By: #### L [id number] ####Waredresser: PHILLY FRANCO ([phone])[facility] ([facility])[address] [place] [address] Platelets (Bld) [#/Vol] 350 10*3/uL Normal 140-440 [facility] Comment on above: Performed By: #### L [id number] ####Waredresser: PHILLY FRANCO ([phone])[facility] ([facility])[address] [place] [address] RBC (Bld) [#/Vol] 1.39 10*6/uL Low 3.80-5.20 [facility] Comment on above: Performed By: #### L [id number] ####Waredresser: PHILLY FRANCO ([phone])[facility] ([facility])[address] [place] [address] WBC (Bld) [#/Vol] 12.8 10*3/uL High 3.6-10.7 [facility] Comment on above: Performed By: #### L [id number] ####Waredresser: PHILLY FRANCO ([phone])[facility])[address] [place] [address] Erythrocyte distribution width (RBC) [Ratio] 17.6 % High 11.5-15.0 [facility] Comment on above: Performed By: #### L [id number] ####Waredresser: PHILLY FRANCO ([phone])[facility])[address] [place] [address] Hematocrit (Bld) [Volume fraction] 12.6 % Low 35.0-47.0 [facility] Comment on above: Performed By: #### L [id number] ####Waredresser: PHILLY FRANCO ([phone])[facility])[address] [place] [address] Hemoglobin (Bld) [Mass/Vol] 4.1 g/dL Critically low 11.7-16.0 [facility] Comment on above: Performed By: #### L [id number] ####Waredresser: PHILLY FRANCO ([phone])[facility])[address] [place] [address] MCH (RBC) [Entitic mass] 29.5 pg Normal 26.0-34.0 [facility] Comment on above: Performed By: #### L [id number] ####Waredresser: PHILLY FRANCO ([phone])[facility])[address] [place] [address] MCHC 32.5 % Normal 30.5-36.0 [facility] Comment on above: Performed By: #### L [id number] ####Waredresser: PHILLY FRANCO ([phone])[facility])[address] [place] [address] MCV (RBC) [Entitic vol] 90.6 fL Normal 77.0-99.0 [facility] Comment on above: Performed By: #### L [id number] ####Waredresser: PHILLY FRANCO ([phone])[facility])[address] [place] [address] Platelet mean volume (Bld) [Entitic vol] 10.7 fL Normal 9.0-12.7 [facility] Comment on above: Performed By: #### L [id number] ####Waredresser: PHILLY FRANCO ([phone])[facility] ([facility])[address] [place] [address] Platelets (Bld) [#/Vol] 322 10*3/uL Normal 140-440 [facility] Comment on above: Performed By: #### L [id number] ####Waredresser: PHILLY FRANCO ([phone])[facility])[address] [place] [address] RBC (Bld) [#/Vol] 1.39 10*6/uL Low 3.80-5.20 [facility] Comment on above: Performed By: #### L [id number] ####Waredresser: PHILLY FRANCO ([phone])[facility])[address] [place] [address] WBC (Bld) [#/Vol] 11.3 10*3/uL High 3.6-10.7 [facility] Comment on above: Performed By: #### L [id number] ####Waredresser: PHILLY FRANCO ([phone])[facility])[address] [place] [address] CBC panel Auto (Bld)Ordered By: Lindy Johansen on 12-17-2024 Erythrocyte distribution width (RBC) [Ratio] 17.6 % High 11.5 - 15.0 % [facility] Hematocrit (Bld) [Volume fraction] 12.6 % Low 35.0 - 47.0 % [facility] Hemoglobin (Bld) [Mass/Vol] 4.2 g/dL Critically low 11.7 - 16.0 g/dL [facility] Interpretation and review of laboratory results Abnormal [facility] MCH (RBC) [Entitic mass] 30.2 pg 26.0 - 34.0 pg [facility] MCHC (RBC) [Mass/Vol] 33.3 % 30.5 - 36.0 % [facility] MCV (RBC) [Entitic vol] 90.6 fL 77.0 - 99.0 fL [facility] Platelet mean volume (Bld) [Entitic vol] 11 fL 9.0 - 12.7 fL [facility] Platelets (Bld) [#/Vol] 350 10*3/uL 140 - 440 10*3/uL [facility] RBC (Bld) [#/Vol] 1.39 10*6/uL Low 3.80 - 5.2 0 10*6/uL [facility] WBC (Bld) [#/Vol] 12.8 10*3/uL High 3.6 - 10.7 10*3/uL [facility] CBC panel Auto (Bld)on 12-17 Erythrocyte distribution width (RBC) [Ratio] 17.6 % High 11.5 - 15.0 % [facility] Hematocrit (Bld) [Volume fraction] 12.6 % Low 35.0 - 47.0 % [facility] Hemoglobin (Bld) [Mass/Vol] 4.1 g/dL Critically low 11.7 - 16.0 g/dL [facility] Interpretation and review of laboratory results Abnormal [facility] MCH (RBC) [Entitic mass] 29.5 pg 26.0 - 34.0 pg [facility] MCHC (RBC) [Mass/Vol] 32.5 % 30.5 - 36.0 % [facility] MCV (RBC) [Entitic vol] 90.6 fL 77.0 - 99.0 fL [facility] Platelet mean volume (Bld) [Entitic vol] 10.7 fL 9.0 - 12.7 fL [facility] Platelets (Bld) [#/Vol] 322 10*3/uL 140 - 440 10*3/uL [facility] RBC (Bld) [#/Vol] 1.39 10*6/uL Low 3.80 - 5.2 0 10*6/uL [facility] WBC (Bld) [#/Vol] 11.3 10*3/uL High 3.6 - 10.7 10*3/uL [facility] COMPREHENSIVE METABOLIC PANE Fam 12-17-2024 Albumin [Mass/Vol] 1.3 g/dL Low 3.4-4.8 [facility] Comment on above: Performed By: #### L AB17 ####Waredresser: PHILLY FRANCO ([phone])[facility] ([address] ALP [Catalytic activity/Vol] 130 U/L Normal 40-150 [facility] Comment on above: Performed By: #### L AB17 ####Waredresser: PHILLY FRANCO ([phone])[facility] ([facility])[address] [place] [address] ALT [Catalytic activity/Vol] 8 U/L Normal <30 [facility] Comment on above: Performed By: #### L AB17 ####Waredresser: PHILLY FRANCO ([phone])[facility] ([facility])[address] [place] [address] Anion gap [Moles/Vol] 7 mmol/L Normal 3-13 [facility] Comment on above: Performed By: #### L AB17 ####Waredresser: PHILLY FRANCO ([phone])[facility] ([facility])[address] [place] [address] AST [Catalytic activity/Vol] 41 U/L High <34 [facility] Comment on above: Performed By: #### L AB17 ####Waredresser: PHILLY FRANCO ([phone])[facility] ([facility])[address] [place] [address] Bilirubin [Mass/Vol] 0.5 mg/dL Normal <1.2 [facility] Comment on above: Performed By: #### L AB17 ####Waredresser: PHILLY FRANCO ([phone])[facility] ([facility])[address] [place] [address] Calcium [Mass/Vol] 7.3 mg/dL Low 8.8-10.0 [facility] Comment on above: Performed By: #### L AB17 ####Waredresser: PHILLY FRANCO ([phone])[facility] ([facility])[address] [place] [address] [place] Chloride [Moles/Vol] 95 mmol/L Low 98-107 [facility] Comment on above: Performed By: #### L AB17 ####Waredresser: PHILLY FRANCO ([phone])[facility] ([facility])[address] [place] [address] [place] CO2 [Moles/Vol] 26 mmol/L Normal 23-31 [facility] Comment on above: Performed By: #### L AB17 ####Waredresser: PHILLY FRANCO ([phone])[facility])[address] [place] [address] Creatinine [Mass/Vol] 2.91 mg/dL High 0.57-1.11 [facility] Comment on above: Performed By: #### L AB17 ####Waredresser: PHILLY FRANCO ([phone])[facility])[address] [place] [address] GLOMERULAR FILTRATION RATE ML/MIN/1.73 SQ M.PREDICTED 16.4 mL/min/1.73m*2 Low >60.0 [facility] Comment on above: Result Comment: Calc ulation based on the Chronic Kidney Disease Epidemiology Collaboration (CKD-EPI) equation refit without adjustment for race Performed By: #### L AB17 ####Waredresser: PHILLY FRANCO ([phone])[facility])[address] [place] [address] Glucose [Mass/Vol] 110 mg/dL Normal 82-115 [facility] Comment on above: Performed By: #### L AB17 ####Waredresser: PHILLY FRANCO ([phone])[facility])[address] [place] [address] Potassium [Moles/Vol] 4.0 mmol/L Normal 3.5-5.1 [facility] Comment on above: Result Comment: [facility] potassium values may be up to 0.5 mmol/L lower than serum values. Performed By: #### L [id number] ####Waredresser: PHILLY FRANCO ([phone])[facility])[address] [place] [address] Protein [Mass/Vol] 5.6 g/dL Low 6.4-8.3 [facility] Comment on above: Performed By: #### L AB17 ####Waredresser: PHILLY FRANCO ([phone])[facility])49 [place] [address] [place] Sodium [Moles/Vol] 128 mmol/L Low 136-145 [facility] Comment on above: Performed By: #### L [id number] ####Waredresser: PHILLY FRANCO ([phone])[facility] ([facility])[address] [place] [address] Urea nitrogen [Mass/Vol] 14 mg/dL Normal 9-23 [facility] Comment on above: Performed By: #### L [id number] ####Waredresser: PHILLY FRANCO ([phone])[facility] ([facility])[address] [place] [address] Coagulation index TEG Qn (Bl d)Ordered By: Juventino Lares on 12-17-2024 APTEM A10 67 mm 50 - 70 mm [facility] APTEM A20 72 mm High 50 - 70 mm [facility] Clot angle TEG (Bld) [Angle] 82 High [facility] Clot formation.extrinsic coagulation system activated Rotational TEG (Bld) [Time] 69 s 43 - 82 s [facility] Clot formation.extrinsic coagulation system activated Rotational TEG (Bld) [Time] 38 s Low 48 - 127 [facility] formation.extrinsic coagulation system activated Rotational TEG (Bld) [Time] 82 High [facility] Clot formation.extrinsic coagulation system activated [...] (Bld) 78 s 43 - 82 s [facility] Interpretation and review of laboratory results Abnormal [facility] Maximum clot firmness.extrinsic coagulation system activated.fibrinolysis suppressed Rotational TEG (Bld) [Length] 74 mm High 52 - 70 mm [facility] Comprehensive metabolic 1998 panelon 12-17-2024 Albumin [Mass/Vol] 1.3 g/dL Low 3.4 - 4.8 g/dL [facility] ALP [Catalytic activity/Vol] 130 U/L 40 - 150 U/L [facility] ALT [Catalytic activity/Vol] 8 U/L NINF - 30 U/L [facility] Anion gap [Moles/Vol] 7 mmol/L 3 - 13 mmol/L [facility] AST [Catalytic activity/Vol] 41 U/L High NINF - 34 U/L [facility] Bilirubin [Mass/Vol] 0.5 mg/dL NINF - 1.2 mg/dL [facility] Calcium [Mass/Vol] 7.3 mg/dL Low 8.8 - 10. 0 mg/dL [facility] Chloride [Moles/Vol] 95 mmol/L Low 98 - 10 7 mmol/L [facility] CO2 [Moles/Vol] 26 mmol/L 23 - 31 mmol/L [facility] Creatinine [Mass/Vol] 2.91 mg/dL High 0.57 - 1.11 mg/dL [facility] GFR/1.73 sq M.predicted (S/P/Bld) [Vol rate/Area] 16.4 mL/min Low - PINF [facility] Glucose [Mass/Vol] 110 mg/dL 82 - 115 mg/dL [facility] Interpretation and review of laboratory results Abnormal [facility] Potassium [Moles/Vol] 4 mmol/L 3.5 - 5.1 mmol/L [facility] Protein [Mass/Vol] 5.6 g/dL Low 6.4 - 8.3 g/dL [facility] Sodium [Moles/Vol] 128 mmol/L Low 136 - 145 mmol/L [facility] Urea nitrogen [Mass/Vol] 14 mg/dL 9 - 23 mg/dL [facility] HEMOGLOBIN AND HEMATOCRIT, B LOODon 12-17-2024 Hematocrit (Bld) [Volume fraction] 27.1 % Low 35.0-47.0 [facility] Comment on above: Performed By: #### L [id number] ####Waredresser: PHILLY FRANCO ([phone])[facility] ([address] Hemoglobin (Bld) [Mass/Vol] 9.6 g/dL Low 11.7-16.0 [facility] Comment on above: Performed By: #### L [id number] ####Waredresser: PHILLY FRANCO ([phone])[facility] ([facility])[address] [place] [address] Hemoglobin (Bld) [Mass/Vol]O rdered By: Adrienne Brasdhaw on 12-17-2024 Hematocrit (Bld) [Volume fraction] 27.1 % Low 35.0 - 47.0 % [facility] Interpretation and review of laboratory results Abnormal [facility] LACTIC ACID WITH REFLEXon Lactate [Moles/Vol] 1.6 mmol/L Normal 0.5-2.2 [facility] Comment on above: Performed By: #### L [id number] ####Waredresser: PHILLY FRANCO ([phone])[facility] ([facility])[address] [place] [address] Lactate [Moles/Vol] 2.4 mmol/L High 0.5-2.2 [facility] Comment on above: Performed By: #### L [id number] ####Waredresser: PHILLY FRANCO ([phone])[facility] ([facility])[address] [place] [address] Laboratory - Chemistry and C hemistry - challengeon 12-17-2024 Glucose [Mass/Vol] 96 mg/dL 70 - 100 mg/dL [facility] Lactate [Moles/Vol] 1.6 mmol/L 0.5 - 2. 2 mmol/L [facility] Lactate [Moles/Vol] 2.4 mmol/L High 0.5 - 2. 2 mmol/L [facility] Laboratory - Coagulationon 0 12-17-2024 aPTT Coag (PPP) [Time] 30.5 s 20.0 - 30.5 s [facility] INR Coag (PPP) [Relative time] 1.2 {INR} High 0.9 - 1.1 [facility] PT Coag (Bld) [Time] 13 s High 9.0 - 12.0 s [facility] Laboratory - Drug toxicology on 12-17-2024 levETIRAcetam [Mass/Vol] 11.3 ug/mL [facility] Laboratory - Hematology and Cell countsOrdered By: Adrienne Bradshaw on 12-17-2024 Hemoglobin (Bld) [Mass/Vol] 9.6 g/dL Low 11.7 - 16.0 g/dL [facility] Laboratory - Microbiology an d Antimicrobial susceptibilityon 12-17-2024 Bacteria identified Cx Nom (Bld) No growth at 5 days [facility] No Panel Informationon 12-17 [facility] Interpretation and review of laboratory results Normal [facility] Blood Expiration Date S [facility] Blood Expiration Date S [facility] Crossmatch interpretation COMP [facility] Dispense Status Transfused [facility] [employer] Product Blood Type 5100 [facility] [employer] PRODUCT CODE [id number] [facility] PRODUCT CODE [id number] [facility] [employer] PRODUCT CODE [id number] [facility] ABO O [facility] Number [id number] [facility] Number [id number] [facility] Number [id number] [facility] RH Positive [facility] Unit Volume 300 mL [facility] Interpretation and review of laboratory results Abnormal [facility] Interpretation and review of laboratory results Normal [facility] Interpretation and review of laboratory results Abnormal [facility] Nursing Noteon 12-17-2024 Nursing Note Normal [facility] Nursing Note Non Emergent rapid paged for stat labs per general surgery. Pt hard stick. Pt known to rapid. Labs sent. Hemoglobin 4.2. Talked with Dr. Leonardo about a possible line for patient due to the issues with getting access/blood. Normal [facility] Nursing Note Normal [facility] PROTIME AND APTTon aPTT Coag (Bld) [Time] 30.5 s Normal 20.0-30.5 [facility] Comment on above: Performed By: #### L [id number] ####Waredresser: PHILLY FRANCO ([phone])[facility] ([facility])[address] [place] [address] [place] INR Coag (PPP) [Relative time] 1.2 {INR} High 0.9-1.1 [facility] Comment on above: Result Comment: Bruce mmended [...] prevent Myocardial Infarction Performed By: #### L [id number] ####Waredresser: PHILLY FRANCO ([phone])[facility])[address] [place] [address] PT Coag (PPP) [Time] 13.0 s High 9.0-12.0 [facility] Comment on above: Performed By: #### L [id number] ####Waredresser: PHILLY FRANCO ([phone])[facility])[address] [place] [address] Progress Noteon 12-17-2024 Progress Note Normal [facility] Progress Note Normal [facility] Progress Note Normal [facility] Progress Note Normal [facility] ALFREDO TRAUMA PANELon 025 APTEM A10 67 mm Normal 50-70 [facility] Comment on above: Performed By: #### L [id number] ####Waredresser: PHILLY FRANCO ([phone])[facility] ([facility])[address] [place] [address] APTEM A20 72 mm High 50-70 [facility] Comment on above: Performed By: #### L [id number] ####Waredresser: PHILLY [id number])[facility] ([facility])[address] [place] [address] [place] APTEM ALPHA 82 DEGREES High 65-80 [facility] Comment on above: Performed By: #### L [id number] ####Waredresser: PHILLY [phone])[facility] ([facility])[address] [place] [address] APTEM CLOT FORMATION TIME 37 s Low 48-127 [facility] Comment on above: Performed By: #### L [id number] ####Waredresser: PHILLY FRANCO ([phone])[facility] ([facility])[address] [place] [address] APTEM CLOTTING TIME 78 s Normal 43-82 [facility] Comment on above: Performed By: #### L [id number] ####Waredresser: PHILLY FRANCO ([phone])[facility] ([facility])[address] [place] [address] APTEM MAXIMUM CLOT FIRMNESS 74 mm High 52-70 [facility] Comment on above: Performed By: #### L [id number] ####Waredresser: PHILLY FRANCO ([phone])[facility] ([facility])[address] [place] [address] [place] EXTEM A10 67 mm Normal 50-70 [facility] Comment on above: Performed By: #### L [id number] ####Waredresser: PHILLY FRANCO ([phone])[facility] ([facility])[address] [place] [address] [place] EXTEM A20 72 mm High 50-70 [facility] Comment on above: Performed By: #### L [id number] ####Waredresser: PHILLY FRANCO ([phone])[facility] ([facility])[address] [place] [address] [place] EXTEM ALPHA 82 DEGREES High 65-80 [facility] Comment on above: Performed By: #### L [id number] ####Waredresser: PHILLY FRANCO ([phone])[facility] ([facility])[address] [place] [address] [place] EXTEM CLOT FORMATION TIME 38 s Low 48-127 [facility] Comment on above: Performed By: #### L [id number] ####Waredresser: PHILLY FRANCO ([phone])[facility] ([facility])[address] [place] [address] EXTEM CLOTTING TIME 69 s Normal 43-82 [facility] Comment on above: Performed By: #### L [id number] ####Waredresser: PHILLY FRANCO ([phone])[facility] ([facility])[address] [place] [address] EXTEM MAXIMUM CLOT FIRMNESS 73 mm High 52-70 [facility] Comment on above: Performed By: #### L [id number] ####Waredresser: PHILLY FRANCO ([phone])[facility] ([facility])[address] [place] [address] [place] FIBTEM A10 31 mm Normal [facility] Comment on above: Performed By: #### L [id number] ####Waredresser: PHILLY FRANCO ([phone])[facility] ([facility])[address] [place] [address] FIBTEM A20 30 mm Normal [facility] Comment on above: Performed By: #### L [id number] ####Waredresser: PHILLY FRANCO ([phone])[facility] ([facility])[address] [place] [address] FIBTEM MAXIMUM CLOT FIRMNESS 31 mm High 7-24 [facility] Comment on above: Performed By: #### L [id number] ####Waredresser: PHILLY FRANCO ([phone])[facility] ([facility])[address] [place] [address] CBC (HEMOGRAM)on 12-16-2024 Erythrocyte distribution width (RBC) [Ratio] 17.2 % High 11.5-15.0 [facility] Comment on above: Performed By: #### L [id number] ####Waredresser: PHILLY FRANCO ([phone])[facility] ([facility] [place] [address] [place] Hematocrit (Bld) [Volume fraction] 24.9 % Low 35.0-47.0 [facility] Comment on above: Performed By: #### L [id number] ####Waredresser: PHILLY FRANCO ([phone])[facility] ([facility])[address] [place] [address] Hemoglobin (Bld) [Mass/Vol] 8.2 g/dL Low 11.7-16.0 [facility] Comment on above: Performed By: #### L [id number] ####Waredresser: PHILLY FRANCO ([phone])[facility])[address] [place] [address] MCH (RBC) [Entitic mass] 29.7 pg Normal 26.0-34.0 [facility] Comment on above: Performed By: #### L [id number] ####Waredresser: PHILLY FRANCO ([phone])[facility])[address] [place] [address] MCHC 32.9 % Normal 30.5-36.0 [facility] Comment on above: Performed By: #### L [id number] ####Waredresser: PHILLY FRANCO ([phone])[facility] ([facility])[address] [place] [address] MCV (RBC) [Entitic vol] 90.2 fL Normal 77.0-99.0 [facility] Comment on above: Performed By: #### L [id number] ####Waredresser: PHILLY FRANCO ([phone])[facility])[address] [place] [address] Platelet mean volume (Bld) [Entitic vol] 10.6 fL Normal 9.0-12.7 [facility] Comment on above: Performed By: #### L [id number] ####Waredresser: PHILLY FRANCO ([phone])[facility] ([facility])[address] [place] [address] Platelets (Bld) [#/Vol] 394 10*3/uL Normal 140-440 [facility] Comment on above: Performed By: #### L [id number] ####Waredresser: PHILLY FRANCO ([phone])[facility])[address] [place] [address] RBC (Bld) [#/Vol] 2.76 10*6/uL Low 3.80-5.20 [facility] Comment on above: Performed By: #### L [id number] ####Waredresser: PHILLY FRANCO ([phone])[facility] ([facility])[address] [place] [address] WBC (Bld) [#/Vol] 10.3 10*3/uL Normal 3.6-10.7 [facility] Comment on above: Performed By: #### L [id number] ####Waredresser: PHILLY FRANCO ([phone])[facility] ([facility])[address] [place] [address] CBC panel Auto (Bld)on 12-16 Erythrocyte distribution width (RBC) [Ratio] 17.2 % High 11.5 - 15.0 % [facility] Hematocrit (Bld) [Volume fraction] 24.9 % Low 35.0 - 47.0 % [facility] Hemoglobin (Bld) [Mass/Vol] 8.2 g/dL Low 11.7 - 16.0 g/dL [facility] Interpretation and review of laboratory results Abnormal [facility] MCH (RBC) [Entitic mass] 29.7 pg 26.0 - 34.0 pg [facility] MCHC (RBC) [Mass/Vol] 32.9 % 30.5 - 36.0 % [facility] MCV (RBC) [Entitic vol] 90.2 fL 77.0 - 99.0 fL [facility] Platelet mean volume (Bld) [Entitic vol] 10.6 fL 9.0 - 12.7 fL [facility] Platelets (Bld) [#/Vol] 394 10*3/uL 140 - 440 10*3/uL [facility] RBC (Bld) [#/Vol] 2.76 10*6/uL Low 3.80 - 5.2 0 10*6/uL [facility] WBC (Bld) [#/Vol] 10.3 10*3/uL 3.6 - 10.7 10*3/uL [facility] COMPREHENSIVE METABOLIC PANE Fam 12-16-2024 Albumin [Mass/Vol] 1.3 g/dL Low 3.4-4.8 [facility] Comment on above: Performed By: #### L [id number] ####Waredresser: PHILLY FRANCO ([phone])[facility] ([facility])[address] [place] [address] ALP [Catalytic activity/Vol] 139 U/L Normal 40-150 [facility] Comment on above: Performed By: #### L [id number] ####Waredresser: PHILLY FRANCO ([phone])[facility] ([facility])[address] [place] [address] ALT [Catalytic activity/Vol] 12 U/L Normal <30 [facility] Comment on above: Performed By: #### L [id number] ####Waredresser: PHILLY FRANCO ([phone])[facility] ([facility])[address] [place] [address] Anion gap [Moles/Vol] 5 mmol/L Normal 3-13 [facility] Comment on above: Performed By: #### L [id number] ####Waredresser: PHILLY FRANCO ([phone])[facility] ([facility])[address] [place] [address] AST [Catalytic activity/Vol] 45 U/L High <34 [facility] Comment on above: Performed By: #### L [id number] ####Waredresser: PHILLY FRANCO ([phone])[facility] ([facility])[address] [place] [address] Bilirubin [Mass/Vol] 0.5 mg/dL Normal <1.2 [facility] Comment on above: Performed By: #### L [id number] ####Waredresser: PHILLY FRANCO ([phone])[facility] ([facility])[address] [place] [address] Calcium [Mass/Vol] 7.4 mg/dL Low 8.8-10.0 [facility] Comment on above: Performed By: #### L [id number] ####Waredresser: PHILLY FRANCO ([phone])[facility] ([facility])[address] [place] [address] Chloride [Moles/Vol] 98 mmol/L Normal 98-107 [facility] Comment on above: Performed By: #### L [id number] ####Waredresser: PHILLY FRANCO ([phone])[facility])[address] [place] [address] CO2 [Moles/Vol] 25 mmol/L Normal 23-31 [facility] Comment on above: Performed By: #### L [id number] ####Waredresser: PHILLY FRANCO ([phone])[facility])[address] [place] [address] Creatinine [Mass/Vol] 2.66 mg/dL High 0.57-1.11 [facility] Comment on above: Performed By: #### L [id number] ####Waredresser: PHILLY FRANCO ([phone])[facility])[address] [place] [address] GLOMERULAR FILTRATION RATE ML/MIN/1.73 SQ M.PREDICTED 18.3 mL/min/1.73m*2 Low >60.0 [facility] Comment on above: Result Comment: Calc ulation based on the Chronic Kidney Disease Epidemiology Collaboration (CKD-EPI) equation refit without adjustment for race Performed By: #### L [id number] ####Waredresser: PHILLY FRANCO ([phone])[facility])[address] [place] [address] Glucose [Mass/Vol] 146 mg/dL High 82-115 [facility] Comment on above: Performed By: #### L [id number] ####Waredresser: PHILLY FRANCO ([phone])[facility])[address] [place] [address] [place] Potassium [Moles/Vol] 4.3 mmol/L Normal 3.5-5.1 [facility] Comment on above: Result Comment: [facility] potassium values may be up to 0.5 mmol/L lower than serum values. Performed By: #### L [id number] ####Waredresser: PHILLY FRANCO ([phone])[facility] [address] Protein [Mass/Vol] 5.9 g/dL Low 6.4-8.3 [facility] Comment on above: Performed By: #### L [id number] ####Waredresser: PHILLY FRANCO ([phone])[facility])[address] [place] [address] Sodium [Moles/Vol] 128 mmol/L Low 136-145 [facility] Comment on above: Performed By: #### L [id number] ####Waredresser: PHILLY FRANCO ([phone])[facility] ([facility])[address] [place] [address] Urea nitrogen [Mass/Vol] 10 mg/dL Normal 9-23 [facility] Comment on above: Performed By: #### L [id number] ####Waredresser: PHILLY FRANCO ([phone])[facility])[address] [place] [address] Albumin [Mass/Vol] 1.4 g/dL Low 3.4-4.8 [facility] Comment on above: Performed By: #### L [id number] ####Waredresser: PHILLY FRANCO ([phone])[facility])[address] [place] [address] ALP [Catalytic activity/Vol] 147 U/L Normal 40-150 [facility] Comment on above: Performed By: #### L [id number] ####Waredresser: PHILLY FRANCO ([phone])[facility])[address] [place] [address] ALT [Catalytic activity/Vol] 13 U/L Normal <30 [facility] Comment on above: Performed By: #### L [id number] ####Waredresser: PHILLY FRANCO ([phone])[facility])[address] [place] [address] Anion gap [Moles/Vol] 8 mmol/L Normal 3-13 [facility] Comment on above: Performed By: #### L [id number] ####Waredresser: PHILLY FRANCO ([phone])[facility] ([facility] [place] [address] [place] AST [Catalytic activity/Vol] 52 U/L High <34 [facility] Comment on above: Performed By: #### L [id number] ####Waredresser: HPILLY FRANCO ([phone])[facility] ([facility])[address] [place] [address] Bilirubin [Mass/Vol] 0.4 mg/dL Normal <1.2 [facility] Comment on above: Performed By: #### L [id number] ####Waredresser: PHILLY FRANCO ([phone])[facility] ([facility])[address] [place] [address] Calcium [Mass/Vol] 7.5 mg/dL Low 8.8-10.0 [facility] Comment on above: Performed By: #### L [id number] ####Waredresser: PHILLY FRANCO ([phone])[facility] ([facility])[address] [place] [address] Chloride [Moles/Vol] 99 mmol/L Normal 98-107 [facility] Comment on above: Performed By: #### L AB17 ####Waredresser: PHILLY FRANCO ([phone])[facility] ([facility])[address] [place] [address] CO2 [Moles/Vol] 25 mmol/L Normal 23-31 [facility] Comment on above: Performed By: #### L [id number] ####Waredresser: PHILLY FRANCO ([phone])[facility] ([facility])[address] [place] [address] [place] Creatinine [Mass/Vol] 1.99 mg/dL High 0.57-1.11 [facility] Comment on above: Performed By: #### L [id number] ####Waredresser: PHILLY FRANCO ([phone])[facility])[address] [place] [address] [place] GLOMERULAR FILTRATION RATE ML/MIN/1.73 SQ M.PREDICTED 25.9 mL/min/1.73m*2 Low >60.0 [facility] Comment on above: Result Comment: Calc ulation based on the Chronic Kidney Disease Epidemiology Collaboration (CKD-EPI) equation refit without adjustment for race Performed By: #### L [id number] ####Waredresser: PHILLY FRANCO ([phone])[facility] ([facility])[address] [place] [address] Glucose [Mass/Vol] 98 mg/dL Normal 82-115 [facility] Comment on above: Performed By: #### L [id number] ####Waredresser: PHILLY FRANCO ([phone])[facility])[address] [place] [address] Potassium [Moles/Vol] 4.0 mmol/L Normal 3.5-5.1 [facility] Comment on above: Result Comment: [facility] potassium values may be up to 0.5 mmol/L lower than serum values. Performed By: #### L AB17 ####Waredresser: PHILLY FRANCO ([phone])[facility])[address] [place] [address] Protein [Mass/Vol] 6.4 g/dL Normal 6.4-8.3 [facility] Comment on above: Performed By: #### L AB17 ####Waredresser: PHILLY FRANCO ([phone])[facility])[address] [place] [address] Sodium [Moles/Vol] 132 mmol/L Low 136-145 [facility] Comment on above: Performed By: #### L [id number] ####Waredresser: PHILLY FRANCO ([phone])[facility])[address] [place] [address] [place] Urea nitrogen [Mass/Vol] 7 mg/dL Low 9-23 [facility] Comment on above: Performed By: #### L [id number] ####Waredresser: PHILLY FRANCO ([phone])[facility])[address] [place] [address] CT ABDOMEN PELVIS WO IV CONT RASTon 12-16-2024 CT ABDOMEN PELVIS WO IV CONTRAST Normal [facility] CT Abdomen and Pelvis WO con traston 12-16-2024 [facility] RADIOLOGY [facility] Radiology Study observation (narrative) [facility] CT Abdomen and Pelvis WO con trastOrdered By: Balta Ruvalcaba on 12-16-2024 [facility] Work Phone: Comprehensive metabolic 1998 panelon 12-16-2024 Albumin [Mass/Vol] 1.3 g/dL Low 3.4 - 4.8 g/dL [facility] ALP [Catalytic activity/Vol] 139 U/L 40 - 150 U/L [facility] ALT [Catalytic activity/Vol] 12 U/L NINF - 30 U/L [facility] Anion gap [Moles/Vol] 5 mmol/L 3 - 13 mmol/L [facility] AST [Catalytic activity/Vol] 45 U/L High NINF - 34 U/L [facility] Bilirubin [Mass/Vol] 0.5 mg/dL NINF - 1.2 mg/dL [facility] Calcium [Mass/Vol] 7.4 mg/dL Low 8.8 - 10. 0 mg/dL [facility] Chloride [Moles/Vol] 98 mmol/L 98 - 10 7 mmol/L [facility] CO2 [Moles/Vol] 25 mmol/L 23 - 31 mmol/L [facility] Creatinine [Mass/Vol] 2.66 mg/dL High 0.57 - 1.11 mg/dL [facility] GFR/1.73 sq M.predicted (S/P/Bld) [Vol rate/Area] 18.3 mL/min Low - PINF [facility] Glucose [Mass/Vol] 146 mg/dL High 82 - 115 mg/dL [facility] Interpretation and review of laboratory results Abnormal [facility] Potassium [Moles/Vol] 4.3 mmol/L 3.5 - 5.1 mmol/L [facility] Protein [Mass/Vol] 5.9 g/dL Low 6.4 - 8.3 g/dL [facility] Sodium [Moles/Vol] 128 mmol/L Low 136 - 145 mmol/L [facility] Urea nitrogen [Mass/Vol] 10 mg/dL 9 - 23 mg/dL [facility] Albumin [Mass/Vol] 1.4 g/dL Low 3.4 - 4.8 g/dL [facility] ALP [Catalytic activity/Vol] 147 U/L 40 - 150 U/L [facility] ALT [Catalytic activity/Vol] 13 U/L NINF - 30 U/L [facility] Anion gap [Moles/Vol] 8 mmol/L 3 - 13 mmol/L [facility] AST [Catalytic activity/Vol] 52 U/L High NINF - 34 U/L [facility] Bilirubin [Mass/Vol] 0.4 mg/dL NINF - 1.2 mg/dL [facility] Calcium [Mass/Vol] 7.5 mg/dL Low 8.8 - 10. 0 mg/dL [facility] Chloride [Moles/Vol] 99 mmol/L 98 - 10 7 mmol/L [facility] CO2 [Moles/Vol] 25 mmol/L 23 - 31 mmol/L [facility] Creatinine [Mass/Vol] 1.99 mg/dL High 0.57 - 1.11 mg/dL [facility] GFR/1.73 sq M.predicted (S/P/Bld) [Vol rate/Area] 25.9 mL/min Low - PINF [facility] Glucose [Mass/Vol] 98 mg/dL 82 - 115 mg/dL [facility] Interpretation and review of laboratory results Abnormal [facility] Potassium [Moles/Vol] 4 mmol/L 3.5 - 5.1 mmol/L [facility] Protein [Mass/Vol] 6.4 g/dL 6.4 - 8.3 g/dL [facility] Sodium [Moles/Vol] 132 mmol/L Low 136 - 145 mmol/L [facility] Urea nitrogen [Mass/Vol] 7 mg/dL Low 9 - 23 mg/dL [facility] Health Consulton 12-16-2024 Consult Normal [facility] LACTIC ACID WITH REFLEXon Lactate [Moles/Vol] 2.6 mmol/L High 0.5-2.2 [facility] Comment on above: Performed By: #### L [id number] ####Waredresser: PHILLY FRANCO ([phone])[facility] ([address] Laboratory - Chemistry and C hemistry - challengeon 12-16-2024 Lactate [Moles/Vol] 2.6 mmol/L High 0.5 - 2. 2 mmol/L [facility] Laboratory - Drug toxicology on 12-16-2024 Vancomycin [Mass/Vol] 13.7 ug/mL [facility] No Panel Informationon 12-16 Interpretation and review of laboratory results Abnormal [facility] Nursing Noteon 12-16-2024 Nursing Note Normal [facility] Nursing Note Crushed patients med s and put in pudding. Patient only took some of meds, and refused the rest. Normal [facility] Progress Noteon 12-16-2024 Progress Note Normal [facility] Progress Note Normal [facility] Progress Note Normal [facility] VANCOMYCIN, RANDOMon 025 VANCOMYCIN 13.7 ug/mL Normal [facility] Comment on above: Result Comment: GUERO Amanda COMMENTS:Toxicity is seen at concentrations >80-100 ug/mLTherapeutic (Peak) range: 20-40Therapeutic (Trough) range: 5-10 Performed By: #### L [id number] ####Waredresser: PHILLY FRANCO ([phone])[address] [id number] 12-15-2024 [id number] Normal [facility] [id number] 30 Day Readmission. Hospital Readmission Questionnaire not required due to patient readmitted from skilled or rehabilitation facility. Normal [facility] CBC (HEMOGRAM)on 12-15-2024 Erythrocyte distribution width (RBC) [Ratio] 17.2 % High 11.5-15.0 [facility] Comment on above: Performed By: #### L [id number] ####Waredresser: PHILLY [phone])[address] Hematocrit (Bld) [Volume fraction] 25.6 % Low 35.0-47.0 [facility] Comment on above: Performed By: #### L [id number] ####Waredresser: PHILLY [id number])[place] [address] [place] Hemoglobin (Bld) [Mass/Vol] 8.3 g/dL Low 11.7-16.0 [facility] Comment on above: Performed By: #### L [id number] ####Waredresser: PHILLY FRANCO ([phone])[facility] ([facility])[address] [place] [address] MCH (RBC) [Entitic mass] 30.0 pg Normal 26.0-34.0 [facility] Comment on above: Performed By: #### L [id number] ####Waredresser: PHILLY FRANCO ([phone])[facility])[address] [place] [address] MCHC 32.4 % Normal 30.5-36.0 [facility] Comment on above: Performed By: #### L [id number] ####Waredresser: PHILLY FRANCO ([phone])[facility] ([facility])[address] [place] [address] MCV (RBC) [Entitic vol] 92.4 fL Normal 77.0-99.0 [facility] Comment on above: Performed By: #### L [id number] ####Waredresser: PHILLY FRANCO ([phone])[facility] ([facility])[address] [place] [address] Platelet mean volume (Bld) [Entitic vol] 10.5 fL Normal 9.0-12.7 [facility] Comment on above: Performed By: #### L [id number] ####Waredresser: PHILLY FRANCO ([phone])[facility] ([facility])[address] [place] [address] Platelets (Bld) [#/Vol] 363 10*3/uL Normal 140-440 [facility] Comment on above: Performed By: #### L [id number] ####Waredresser: PHILLY FRANCO ([phone])[facility] ([facility])[address] [place] [address] RBC (Bld) [#/Vol] 2.77 10*6/uL Low 3.80-5.20 [facility] Comment on above: Performed By: #### L [id number] ####Waredresser: PHILLY FRANCO ([phone])[facility] ([facility])[address] [place] [address] WBC (Bld) [#/Vol] 12.0 10*3/uL High 3.6-10.7 [facility] Comment on above: Performed By: #### L [id number] ####Waredresser: PHILLY FRANCO ([phone])[facility] ([facility])[address] [place] [address] CBC panel Auto (Bld)on 12-15 Erythrocyte distribution width (RBC) [Ratio] 17.2 % High 11.5 - 15.0 % [facility] Hematocrit (Bld) [Volume fraction] 25.6 % Low 35.0 - 47.0 % [facility] Hemoglobin (Bld) [Mass/Vol] 8.3 g/dL Low 11.7 - 16.0 g/dL [facility] Interpretation and review of laboratory results Abnormal [facility] MCH (RBC) [Entitic mass] 30 pg 26.0 - 34.0 pg [facility] MCHC (RBC) [Mass/Vol] 32.4 % 30.5 - 36.0 % [facility] MCV (RBC) [Entitic vol] 92.4 fL 77.0 - 99.0 fL [facility] Platelet mean volume (Bld) [Entitic vol] 10.5 fL 9.0 - 12.7 fL [facility] Platelets (Bld) [#/Vol] 363 10*3/uL 140 - 440 10*3/uL [facility] RBC (Bld) [#/Vol] 2.77 10*6/uL Low 3.80 - 5.2 0 10*6/uL [facility] WBC (Bld) [#/Vol] 12 10*3/uL High 3.6 - 10.7 10*3/uL [facility] COMPREHENSIVE METABOLIC PANE Fam 12-15-2024 Albumin [Mass/Vol] 1.5 g/dL Low 3.4-4.8 [facility] Comment on above: Performed By: #### L [id number] ####Waredresser: PHILLY FRANCO ([phone])[facility] ([facility])[address] [place] [address] ALP [Catalytic activity/Vol] 146 U/L Normal 40-150 [facility] Comment on above: Performed By: #### L AB17 ####Waredresser: PHILLY FRANCO ([phone])[facility] ([facility])[address] [place] [address] [place] ALT [Catalytic activity/Vol] 14 U/L Normal <30 [facility] Comment on above: Performed By: #### L [id number] ####Waredresser: PHILLY FRANCO ([phone])[facility] ([facility])[address] [place] [address] Anion gap [Moles/Vol] 9 mmol/L Normal 3-13 [facility] Comment on above: Performed By: #### L AB17 ####Waredresser: PHILLY FRANCO ([phone])[facility] ([facility])[address] [place] [address] AST [Catalytic activity/Vol] 53 U/L High <34 [facility] Comment on above: Performed By: #### L [id number] ####Waredresser: PHILLY FRANCO ([phone])[facility] ([facility])[address] [place] [address] Bilirubin [Mass/Vol] 0.4 mg/dL Normal <1.2 [facility] Comment on above: Performed By: #### L AB17 ####Waredresser: PHILLY FRANCO ([phone])[facility] ([facility])[address] [place] [address] Calcium [Mass/Vol] 7.8 mg/dL Low 8.8-10.0 [facility] Comment on above: Performed By: #### L AB17 ####Waredresser: PHILLY FRANCO ([phone])[facility] ([facility])[address] [place] [address] Chloride [Moles/Vol] 101 mmol/L Normal 98-107 [facility] Comment on above: Performed By: #### L AB17 ####Waredresser: PHILLY FRANCO ([phone])[facility])[address] [place] [address] CO2 [Moles/Vol] 24 mmol/L Normal 23-31 [facility] Comment on above: Performed By: #### L AB17 ####Waredresser: PHILLY FRANCO ([phone])[facility])[address] [place] [address] Creatinine [Mass/Vol] 2.80 mg/dL High 0.57-1.11 [facility] Comment on above: Performed By: #### L AB17 ####Waredresser: PHILLY FRANCO ([phone])[facility])[address] [place] [address] GLOMERULAR FILTRATION RATE ML/MIN/1.73 SQ M.PREDICTED 17.2 mL/min/1.73m*2 Low >60.0 [facility] Comment on above: Result Comment: Calc ulation based on the Chronic Kidney Disease Epidemiology Collaboration (CKD-EPI) equation refit without adjustment for race Performed By: #### L [id number] ####Waredresser: PHILLY FRANCO ([phone])[facility])[address] [place] [address] Glucose [Mass/Vol] 65 mg/dL Low 82-115 [facility] Comment on above: Performed By: #### L AB17 ####Waredresser: PHILLY FRANCO ([phone])[facility])[address] [place] [address] Potassium [Moles/Vol] 4.4 mmol/L Normal 3.5-5.1 [facility] Comment on above: Result Comment: [facility] potassium values may be up to 0.5 mmol/L lower than serum values. Performed By: #### L AB17 ####Waredresser: PHILLY FRANCO ([phone])[facility])[address] [place] [address] Protein [Mass/Vol] 6.5 g/dL Normal 6.4-8.3 [facility] Comment on above: Performed By: #### L AB17 ####Waredresser: PHILLY FRANCO ([phone])[facility] ([facility])[address] [place] [address] Sodium [Moles/Vol] 134 mmol/L Low 136-145 [facility] Comment on above: Performed By: #### L AB17 ####Waredresser: PHILLY FRANCO ([phone])[facility] ([facility])[address] [place] [address] Urea nitrogen [Mass/Vol] 12 mg/dL Normal 9- [facility] Comment on above: Performed By: #### L AB17 ####Waredresser: PHILLY FRANCO ([phone])[facility] ([facility])[address] [place] [address] Comprehensive metabolic 1998 panelOrdered By: Feliberto Avina on 12-15-2024 Albumin [Mass/Vol] 1.5 g/dL Low 3.4 - 4.8 g/dL [facility] ALP [Catalytic activity/Vol] 146 U/L 40 - 150 U/L [facility] ALT [Catalytic activity/Vol] 14 U/L NINF - 30 U/L [facility] Anion gap [Moles/Vol] 9 mmol/L 3 - 13 mmol/L [facility] AST [Catalytic activity/Vol] 53 U/L [facility] U/L [facility] Bilirubin [Mass/Vol] 0.4 mg/dL NINF - 1.2 mg/dL [facility] Calcium [Mass/Vol] 7.8 mg/dL Low 8.8 - 10. 0 mg/dL [facility] Chloride [Moles/Vol] 101 mmol/L 98 - 10 7 mmol/L [facility] CO2 [Moles/Vol] 24 mmol/L 23 - 31 mmol/L [facility] Creatinine [Mass/Vol] 2.8 mg/dL High 0.57 - 1.11 mg/dL [facility] GFR/1.73 sq M.predicted (S/P/Bld) [Vol rate/Area] 17.2 mL/min Low - PINF [facility] Glucose [Mass/Vol] 65 mg/dL Low 82 - 115 mg/dL [facility] Interpretation and review of laboratory results Abnormal [facility] Potassium [Moles/Vol] 4.4 mmol/L 3.5 - 5.1 mmol/L [facility] Protein [Mass/Vol] 6.5 g/dL 6.4 - 8.3 g/dL [facility] Sodium [Moles/Vol] 134 mmol/L Low 136 - 145 mmol/L [facility] Urea nitrogen [Mass/Vol] 12 mg/dL 9 - 23 mg/dL [facility] LEVETIRACETAM LEVEL (BKR QUE ST)on 12-15-2024 QUEST LEVETIRACETAM, IMMUNOASSAY 11.3 mcg/mL Normal 6.0-46.0 [facility] Comment on above: Result Comment: Briv aracetam (Briviact(R), Rikelta(R)) exhibitssignificant cross-reactivity in the Levetiracetam(Keppra(R), Spritam(R)) immunoassay. If Brivaracetamhas been prescribed, order test code [id number] by LCMSMS.Test Performed by [facility],[address] [place] [id number] Orourke M.D., Ph.D., Director of [phone], [place] [id number] Performed By: #### L [id number] ####[employer] ([facility])[address] [place] [address] [facility] Laboratory - Chemistry and C hemistry - challengeon 12-15-2024 Glucose [Mass/Vol] 104 mg/dL High 70 - 100 mg/dL [facility] Glucose [Mass/Vol] 69 mg/dL Low 70 - 100 mg/dL [facility] Laboratory - Drug toxicology on 12-15-2024 Vancomycin [Mass/Vol] 19 ug/mL [facility] No Panel Informationon 12-15 Interpretation and review of laboratory results Abnormal [facility] Interpretation and review of laboratory results Abnormal [facility] Nursing Noteon 12-15-2024 Nursing Note Normal [facility] Progress Noteon 12-15-2024 Progress Note Normal [facility] Progress Note Normal [facility] Progress Note Normal [facility] Progress Note Normal [facility] Progress Note Normal [facility] VANCOMYCIN, RANDOMon 025 VANCOMYCIN 19.0 ug/mL Normal [facility] Comment on above: Result Comment: GUERO Amanda COMMENTS:Obtain a vancomycin level 4 hours after the END of hemodialysis.Toxicity is seen at concentrations >80-100 ug/mLTherapeutic (Peak) range: 20-40Therapeutic (Trough) range: 5-10 Performed By: #### L AB40 ####Waredresser: PHILLY FRANCO ([phone])[facility] ([facility])[address] [place] [address] [id number] 12-14-2024 [id number] Normal [facility] AMMONIAon 12-14-2024 Ammonia (P) [Moles/Vol] 26 umol/L Normal 18-72 [facility] Comment on above: Performed By: #### L [id number] ####Waredresser: PHILLY FRANCO ([phone])[facility] ([facility])[address] [place] [address] BLOOD TYPE AND SCREEN GELon 12-14-2024 ABO GROUPING O Normal [facility] Comment on above: Performed By: #### L [id number] ####Waredresser: PHILLY FRANCO ([phone])[facility] ([facility])[address] [place] [address] RH TYPE IN BLOOD Positive Normal [facility] Comment on above: Performed By: #### L [id number] ####Waredresser: PHILLY FRANCO ([phone])[facility] ([facility])[address] [place] [address] Blood type and Crossmatch pa kojo (Bld)on 12-14-2024 ABO group Nom (Bld) O [facility] Blood group antibody screen GEL Ql Negative [facility] D Ag Ql (RBC) Positive [facility] CBC (HEMOGRAM)on 12-14-2024 HEMATOCRIT Normal 35.0-47.0 [facility] Comment on above: Result Comment: Disr egard previously reported results.Corrected result: Previously reported as 20.8 % (reference range: 35.0-47.0 %) on 12/14/2024 at 0147 EDT. Performed By: #### L [id number] ####Waredresser: PHILLY FRANCO ([phone])[facility])[address] [place] [address] HEMOGLOBIN Normal 11.7-16.0 [facility] Comment on above: Result Comment: Disr egard previously reported results.Corrected result: Previously reported as 6.5 g/dL (reference range: 11.7-16.0 g/dL) on 12/14/2024 at 0147 EDT. Performed By: #### L [id number] ####Waredresser: PHILLY FRANCO ([phone])[address] MCH Normal 26.0-34.0 [facility] Comment on above: Result Comment: Disr egard previously reported results.Corrected result: Previously reported as 29.4 pg (reference range: 26.0-34.0 pg) on 12/14/2024 at 0147 EDT. Performed By: #### L [id number] ####Waredresser: PHILLY FRANCO ([phone])[address] MCHC Normal 30.5-36.0 [facility] Comment on above: Result Comment: Disr egard previously reported results.Corrected result: Previously reported as 31.3 % (reference range: 30.5-36.0 %) on 12/14/2024 at 0147 EDT. Performed By: #### L [id number] ####Waredresser: PHILLY FRANCO ([phone])[address] MCV Normal 77.0-99.0 [facility] Comment on above: Result Comment: Disr egsusanna previously reported results.Corrected result: Previously reported as 94.1 fL (reference range: 77.0-99.0 fL) on 12/14/2024 at 0147 EDT. Performed By: #### L [id number] ####Waredresser: PHILLY FRANCO ([phone])[facility])[address] [place] [address] MPV Normal 9.0-12.7 [facility] Comment on above: Result Comment: Disr egard previously reported results.Corrected result: Previously reported as 10.6 fL (reference range: 9.0-12.7 fL) on 12/14/2024 at 0147 EDT.ORDER COMMENTS:Disregard previously reported results.Specimen contaminated with iv fluid Performed By: #### L [id number] ####Waredresser: PHILLY FRANCO ([phone])[address] PLATELET COUNT Normal 140-440 [facility] Comment on above: Result Comment: Disr egard previously reported results.Corrected result: Previously reported as 274 10*3/uL (reference range: 140-440 10*3/uL) on 12/14/2024 at 0147 EDT. Performed By: #### L [id number] ####Waredresser: PHILLY FRANCO ([phone])[address] RBC Normal 3.80-5.20 [facility] Comment on above: Result Comment: Disr egard previously reported results.Corrected result: Previously reported as 2.21 10*6/uL (reference range: 3.80-5.20 10*6/uL) on 12/14/2024 at 0147 EDT. Performed By: #### L [id number] ####Waredresser: PHILLY FRANCO ([phone])[address] RDW Normal 11.5-15.0 [facility] Comment on above: Result Comment: Disr egard previously reported results.Corrected result: Previously reported as 17.2 % (reference range: 11.5-15.0 %) on 12/14/2024 at 0147 EDT. Performed By: #### L [id number] ####Waredresser: PHILLY FRANCO ([phone])[facility] ([facility])[address] [place] [address] WBC Normal 3.6-10.7 [facility] Comment on above: Result Comment: Brigid hernandez previously reported results.Corrected result: Previously reported as 11.9 10*3/uL (reference range: 3.6-10.7 10*3/uL) on 12/14/2024 at 0147 EDT. Performed By: #### L [id number] ####Waredresser: PHILLY FRANCO ([phone])[facility] ([facility])[address] [place] [address] CBC W Auto Differential pane l (Bld)Ordered By: Alison Jain on 12-14-2024 Basophils (Bld) [#/Vol] 0.1 10*3/uL 0.0 - 0.2 10*3/uL [facility] Basophils/100 WBC (Bld) 0.8 % 0.0 - 2.0 % [facility] Eosinophils (Bld) [#/Vol] 0.4 10*3/uL 0.0 - 0.5 10*3/uL [facility] Eosinophils/100 WBC (Bld) 3.3 % 0.0 - 6.0 % [facility] Erythrocyte distribution width (RBC) [Ratio] 17.2 % High 11.5 - 15.0 % [facility] Hematocrit (Bld) [Volume fraction] 23.6 % Low 35.0 - 47.0 % [facility] Hemoglobin (Bld) [Mass/Vol] 7.5 g/dL Low 11.7 - 16.0 g/dL [facility] Immature granulocytes (Bld) [#/Vol] 0.1 10*3/uL High NINF - 0.1 10*3/uL [facility] Immature granulocytes/100 WBC (Bld) 0.4 % 0.0 - 2.0 % [facility] Interpretation and review of laboratory results Abnormal [facility] Lymphocytes (Bld) [#/Vol] 1.2 10*3/uL 1.0 - 4.3 10*3/uL [facility] Lymphocytes/100 WBC (Bld) 9 % Low 15.0 - 45.0 % [facility] MCH (RBC) [Entitic mass] 29.3 pg 26.0 - 34.0 pg [facility] MCHC (RBC) [Mass/Vol] 31.8 % 30.5 - 36.0 % [facility] MCV (RBC) [Entitic vol] 92.2 fL 77.0 - 99.0 fL [facility] Monocytes (Bld) [#/Vol] 1 10*3/uL High 0.0 - 0.9 10*3/uL [facility] Monocytes/100 WBC (Bld) 7.6 % 5.0 - 13.0 % [facility] Neutrophils (Bld) [#/Vol] 10.4 10*3/uL High 1.8 - 7.5 10*3/uL [facility] Neutrophils/100 WBC (Bld) 78.9 % 38.0 - 82.0 % [facility] Nucleated RBC/100 WBC (Bld) [Ratio] 0 % [facility] Platelet mean volume (Bld) [Entitic vol] 10.6 fL 9.0 - 12.7 fL [facility] Platelets (Bld) [#/Vol] 305 10*3/uL 140 - 440 10*3/uL [facility] RBC (Bld) [#/Vol] 2.56 10*6/uL Low 3.80 - 5.2 0 10*6/uL [facility] WBC (Bld) [#/Vol] 13.1 10*3/uL High 3.6 - 10.7 10*3/uL [facility] CBC WITH AUTO DIFFERENTIALon 12-14-2024 Basophils (Bld) [#/Vol] 0.1 10*3/uL Normal 0.0-0.2 [facility] Comment on above: Performed By: #### L [id number] ####Waredresser: PHILLY FRANCO ([phone])[facility] ([facility])[address] [place] [address] Basophils/100 WBC (Bld) 0.8 % Normal 0.0-2.0 [facility] Comment on above: Performed By: #### L [id number] ####Waredresser: PHILLY FRANCO ([phone])[facility] ([facility])[address] [place] [address] Eosinophils (Bld) [#/Vol] 0.4 10*3/uL Normal 0.0-0.5 [facility] Comment on above: Performed By: #### L [id number] ####Waredresser: PHILLY FRANCO ([phone])[facility])[address] [place] [address] Eosinophils/100 WBC (Bld) 3.3 % Normal 0.0-6.0 [facility] Comment on above: Performed By: #### L [id number] ####Waredresser: PHILLY FRANCO ([phone])[address] Erythrocyte distribution width (RBC) [Ratio] 17.2 % High 11.5-15.0 [facility] Comment on above: Performed By: #### L [id number] ####Waredresser: PHILLY FRANCO ([phone])[address] Hematocrit (Bld) [Volume fraction] 23.6 % Low 35.0-47.0 [facility] Comment on above: Performed By: #### L [id number] ####Waredresser: PHILLY FRANCO ([id number])[address] Hemoglobin (Bld) [Mass/Vol] 7.5 g/dL Low 11.7-16.0 [facility] Comment on above: Performed By: #### L [id number] ####Waredresser: PHILLY FRANCO ([phone])[facility])[address] [place] [address] IMMATURE GRANS % 0.4 % Normal 0.0-2.0 [facility] Comment on above: Performed By: #### L [id number] ####Waredresser: PHILLY FRANCO ([phone])[address] IMMATURE GRANS ABSOLUTE 0.1 10*3/uL High <0.1 [facility] [facility] Comment on above: Performed By: #### L [id number] ####Waredresser: PHILLY FRANCO ([phone])[facility])[address] [place] [address] Lymphocytes (Bld) [#/Vol] 1.2 10*3/uL Normal 1.0-4.3 [facility] Comment on above: Performed By: #### L [id number] ####Waredresser: PHILLY FRANCO ([phone])[facility])[address] [place] [address] Lymphocytes/100 WBC (Bld) 9.0 % Low 15.0-45.0 [facility] Comment on above: Performed By: #### L [id number] ####Waredresser: PHILLY FRANCO ([phone])[facility])[address] [place] [address] MCH (RBC) [Entitic mass] 29.3 pg Normal 26.0-34.0 [facility] Comment on above: Performed By: #### L [id number] ####Waredresser: PHILLY FRANCO ([phone])[facility])[address] [place] [address] MCHC 31.8 % Normal 30.5-36.0 [facility] Comment on above: Performed By: #### L [id number] ####Waredresser: PHILLY FRANCO ([phone])[facility])[address] [place] [address] MCV (RBC) [Entitic vol] 92.2 fL Normal 77.0-99.0 [facility] Comment on above: Performed By: #### L [id number] ####Waredresser: PHILLY FRANCO ([phone])[facility])[address] [place] [address] Monocytes (Bld) [#/Vol] 1.0 10*3/uL High 0.0-0.9 [facility] Comment on above: Performed By: #### L [id number] ####Waredresser: PHILLY FRANCO ([phone])[facility])[address] [place] [address] Monocytes/100 WBC (Bld) 7.6 % Normal 5.0-13.0 [facility] Comment on above: Performed By: #### L [id number] ####Waredresser: PHILLY FRANCO ([phone])[facility] ([facility])[address] [place] [address] NEUTROPHILS ABSOLUTE 10.4 10*3/uL High 1.8-7.5 [facility] Comment on above: Performed By: #### L [id number] ####Waredresser: PHILLY FRANCO ([phone])[facility] ([facility])[address] [place] [address] Neutrophils/100 WBC (Bld) 78.9 % Normal 38.0-82.0 [facility] Comment on above: Performed By: #### L [id number] ####Waredresser: PHILLY FRANCO ([phone])[facility] ([facility])[address] [place] [address] NRBC 0.0 /100 WBCs Normal 0.0-2.0 [facility] Comment on above: Performed By: #### L [id number] ####Waredresser: PHILLY FRANCO ([phone])[facility] ([facility])[address] [place] [address] Platelet mean volume (Bld) [Entitic vol] 10.6 fL Normal 9.0-12.7 [facility] Comment on above: Performed By: #### L [id number] ####Waredresser: PHILLY FRANCO ([phone])[facility] ([facility])[address] [place] [address] [place] Platelets (Bld) [#/Vol] 305 10*3/uL Normal 140-440 [facility] Comment on above: Performed By: #### L [id number] ####Waredresser: PHILLY FRANCO ([phone])[facility] ([facility])[address] [place] [address] [place] RBC (Bld) [#/Vol] 2.56 10*6/uL Low 3.80-5.20 [facility] Comment on above: Performed By: #### L [id number] ####Waredresser: PHILLY FRANCO ([phone])[facility])[address] [place] [address] WBC (Bld) [#/Vol] 13.1 10*3/uL High 3.6-10.7 [facility] Comment on above: Performed By: #### L [id number] ####Waredresser: PHILLY FRANCO ([phone])[facility] ([facility])[address] [place] [address] CBC panel Auto (Bld)Ordered By: Beatriz Morales on 12-14-2024 Erythrocyte distribution width (RBC) [Ratio] [facility] Hematocrit (Bld) [Volume fraction] [facility] Hemoglobin (Bld) [Mass/Vol] [facility] MCH (RBC) [Entitic mass] [facility] MCHC (RBC) [Mass/Vol] [facility] MCV (RBC) [Entitic vol] [facility] Platelet mean volume (Bld) [Entitic vol] [facility] Platelets (Bld) [#/Vol] [facility] RBC (Bld) [#/Vol] [facility] WBC (Bld) [#/Vol] [facility] COMPREHENSIVE METABOLIC PANE Fam 12-14-2024 Albumin [Mass/Vol] 1.4 g/dL Low 3.4-4.8 [facility] Comment on above: Performed By: #### L AB113, LAB17 ####Waredresser: PHILLY FRANCO ([phone])[facility])[address] [place] [address] [place] ALP [Catalytic activity/Vol] 131 U/L Normal 40-150 [facility] Comment on above: Performed By: #### L AB113, LAB17 ####Waredresser: PHILLY FRANCO ([phone])[facility])[address] [place] [address] [place] ALT [Catalytic activity/Vol] 13 U/L Normal <30 [facility] Comment on above: Performed By: #### L AB113, LAB17 ####Waredresser: PHILLY FRANCO ([phone])[facility])[address] [place] [address] Anion gap [Moles/Vol] 9 mmol/L Normal 3-13 [facility] Comment on above: Performed By: #### L AB113, LAB17 ####Waredresser: PHILLY FRANCO ([phone])[facility] ([facility])[address] [place] [address] AST [Catalytic activity/Vol] 50 U/L High <34 [facility] Comment on above: Performed By: #### L ABAntonio, LAB17 ####Waredresser: PHILLY FRANCO ([phone])[facility] ([facility])[address] [place] [address] Bilirubin [Mass/Vol] 0.4 mg/dL Normal <1.2 [facility] Comment on above: Performed By: #### L AB113, LAB17 ####Waredresser: PHILLY FRANCO ([phone])[facility] ([facility])[address] [place] [address] Calcium [Mass/Vol] 7.5 mg/dL Low 8.8-10.0 [facility] Comment on above: Performed By: #### L AB113, LAB17 ####Waredresser: PHILLY FRANCO ([phone])[facility] ([facility])[address] [place] [address] [place] Chloride [Moles/Vol] 96 mmol/L Low 98-107 [facility] Comment on above: Performed By: #### L AB113, LAB17 ####Waredresser: PHILLY FRANCO ([phone])[facility])[address] [place] [address] CO2 [Moles/Vol] 25 mmol/L Normal 23-31 [facility] Comment on above: Performed By: #### L AB113, LAB17 ####Waredresser: PHILLY FRANCO ([phone])[facility])[address] [place] [address] Creatinine [Mass/Vol] 4.37 mg/dL High 0.57-1.11 [facility] Comment on above: Performed By: #### L AB113, LAB17 ####Waredresser: PHILLY FRANCO ([phone])[facility])[address] [place] [address] [place] GLOMERULAR FILTRATION RATE ML/MIN/1.73 SQ M.PREDICTED 10.1 mL/min/1.73m*2 Low >60.0 [facility] Comment on above: Result Comment: Calc ulation based on the Chronic Kidney Disease Epidemiology Collaboration (CKD-EPI) equation refit without adjustment for race Performed By: #### L SHAYNE, LAB17 ####Waredresser: PHILLY FRANCO ([phone])[facility])[address] [place] [address] Glucose [Mass/Vol] 95 mg/dL Normal 82-115 [facility] Comment on above: Performed By: #### L ABAntonio, LAB17 ####Waredresser: PHILLY FRANCO ([phone])[facility])[address] [place] [address] Potassium [Moles/Vol] 3.7 mmol/L Normal 3.5-5.1 [facility] Comment on above: Result Comment: [facility] potassium values may be up to 0.5 mmol/L lower than serum values. Performed By: #### L ABAntonio, LAB17 ####Waredresser: PHILLY FRANCO ([phone])[facility] ([facility])[address] [place] [address] [place] Protein [Mass/Vol] 6.2 g/dL Low 6.4-8.3 [facility] Comment on above: Performed By: #### L AB113, LAB17 ####Waredresser: PHILLY FRANCO ([phone])[facility])[address] [place] [address] [place] Sodium [Moles/Vol] 130 mmol/L Low 136-145 [facility] Comment on above: Performed By: #### L AB113, LAB17 ####Waredresser: PHILLY FRANCO ([phone])[facility] [place] [address] Urea nitrogen [Mass/Vol] 26 mg/dL High 9-23 [facility] Comment on above: Performed By: #### L AB113, LAB17 ####Waredresser: PHILLY FRANCO ([phone])[facility] [place] [address] Comprehensive metabolic 1998 panelon 12-14-2024 Albumin [Mass/Vol] 1.4 g/dL Low 3.4 - 4.8 g/dL [facility] ALP [Catalytic activity/Vol] 131 U/L 40 - 150 U/L [facility] ALT [Catalytic activity/Vol] 13 U/L NINF - 30 U/L [facility] Anion gap [Moles/Vol] 9 mmol/L 3 - 13 mmol/L [facility] AST [Catalytic activity/Vol] 50 U/L High NINF - 34 U/L [facility] Bilirubin [Mass/Vol] 0.4 mg/dL NINF - 1.2 mg/dL [facility] Calcium [Mass/Vol] 7.5 mg/dL Low 8.8 - 10. 0 mg/dL [facility] Chloride [Moles/Vol] 96 mmol/L Low 98 - 10 7 mmol/L [facility] CO2 [Moles/Vol] 25 mmol/L 23 - 31 mmol/L [facility] Creatinine [Mass/Vol] 4.37 mg/dL High 0.57 - 1.11 mg/dL [facility] GFR/1.73 sq M.predicted (S/P/Bld) [Vol rate/Area] 10.1 mL/min Low - PINF [facility] Glucose [Mass/Vol] 95 mg/dL 82 - 115 mg/dL [facility] Interpretation and review of laboratory results Abnormal [facility] Potassium [Moles/Vol] 3.7 mmol/L 3.5 - 5.1 mmol/L [facility] Protein [Mass/Vol] 6.2 g/dL Low 6.4 - 8.3 g/dL [facility] Sodium [Moles/Vol] 130 mmol/L Low 136 - 145 mmol/L [facility] Urea nitrogen [Mass/Vol] 26 mg/dL High 9 - 23 mg/dL [facility] Consulton 12-14-2024 Consult Normal [facility] Laboratory - Chemistry and C hemistry - challengeon 12-14-2024 Glucose [Mass/Vol] 117 mg/dL High 70 - 100 mg/dL [facility] Glucose [Mass/Vol] 96 mg/dL 70 - 100 mg/dL [facility] Glucose [Mass/Vol] 104 mg/dL High 70 - 100 mg/dL [facility] Ammonia (P) [Moles/Vol] 26 umol/L 18 - 72 umol/L [facility] Glucose [Mass/Vol] 98 mg/dL 70 - 100 mg/dL [facility] No Panel Informationon 12-14 Interpretation and review of laboratory results Abnormal [facility] Interpretation and review of laboratory results Normal [facility] Interpretation and review of laboratory results Abnormal [facility] Interpretation and review of laboratory results Normal [facility] Interpretation and review of laboratory results Normal [facility] Nursing Noteon 12-14-2024 Nursing Note Normal [facility] PHOSPHORUSon 12-14-2024 Phosphate [Mass/Vol] 2.3 mg/dL Normal 2.3-4.7 [facility] Comment on above: Performed By: #### L AB113, LAB17 ####Waredresser: PHILLY FRANCO ([phone])[address] Phosphate [Moles/Vol]on 12-04 Interpretation and review of laboratory results Normal [facility] Phosphate [Mass/Vol] 2.3 mg/dL 2.3 - 4 .7 mg/dL [facility] Progress Noteon 12-14-2024 Progress Note Normal [facility] Progress Note Normal [facility] Progress Note Normal [facility] Progress Note Normal [facility] Progress Note Normal [facility] Progress Note Normal [facility] Progress Note Normal [facility] [id number] 12-13-2024 [id number] Normal [facility] [id number] Normal [facility] BASIC METABOLIC PANELon 12-04 Anion gap [Moles/Vol] 9 mmol/L Normal 3-13 [facility] Comment on above: Performed By: #### L AB67, LAB15, [id number], [id number] ####Waredresser: PHILLY FRANCO ([phone])[facility] ([facility])[address] [place] [address] Calcium [Mass/Vol] 7.8 mg/dL Low 8.8-10.0 [facility] Comment on above: Performed By: #### L AB67, LAB15, [id number], [id number] ####Waredresser: PHILLY FRANCO ([phone])[facility])[address] [place] [address] Chloride [Moles/Vol] 100 mmol/L Normal 98-107 [facility] Comment on above: Performed By: #### L AB67, LAB15, [id number], [id number] ####Waredresser: PHILLY FRANCO ([phone])[facility] ([facility])[address] [place] [address] CO2 [Moles/Vol] 25 mmol/L Normal 23-31 [facility] Comment on above: Performed By: #### L AB67, LAB15, [id number], [id number] ####Waredresser: PHILLY FRANCO ([phone])[facility])[address] [place] [address] Creatinine [Mass/Vol] 3.82 mg/dL High 0.57-1.11 [facility] Comment on above: Performed By: #### L AB67, LAB15, [id number], [id number] ####Waredresser: HPILLY FRANCO ([phone])[facility])[address] [place] [address] [place] GLOMERULAR FILTRATION RATE ML/MIN/1.73 SQ M.PREDICTED 11.9 mL/min/1.73m*2 Low >60.0 [facility] Comment on above: Result Comment: Calc ulation based on the Chronic Kidney Disease Epidemiology Collaboration (CKD-EPI) equation refit without adjustment for race Performed By: #### L AB67, LAB15, [id number], [id number] ####Waredresser: PHILLY FRANCO ([phone])[facility])[address] [place] [address] Glucose [Mass/Vol] 47 mg/dL Critically low 82-115 [facility] Comment on above: Performed By: #### L AB67, LAB15, [id number], ZFM129 ####Waredresser: PHILLY FRANCO ([phone])[facility])[address] [place] [address] Potassium [Moles/Vol] 4.2 mmol/L Normal 3.5-5.1 [facility] Comment on above: Result Comment: [facility] potassium values may be up to 0.5 mmol/L lower than serum values. Performed By: #### L AB67, LAB15, BOA115, ZFC614 ####Waredresser: PHILLY FRANCO ([phone])[facility] ([facility])[address] [place] [address] Sodium [Moles/Vol] 134 mmol/L Low 136-145 [facility] Comment on above: Performed By: #### L AB67, LAB15, MXP239, [id number] ####Waredresser: PHILLY FRANCO ([phone])[facility])[address] [place] [address] Urea nitrogen [Mass/Vol] 22 mg/dL Normal 9-23 [facility] Comment on above: Performed By: #### L AB67, LAB15, EMF481, [id number] ####Waredresser: PHILLY FRANCO ([phone])[facility])[address] [place] [address] Basic metabolic 1998 panelOr dered By: Yogi Stanley on 12-13-2024 Anion gap [Moles/Vol] 9 mmol/L 3 - 13 mmol/L [facility] Calcium [Mass/Vol] 7.8 mg/dL Low 8.8 - 10. 0 mg/dL [facility] Chloride [Moles/Vol] 100 mmol/L 98 - 10 7 mmol/L [facility] CO2 [Moles/Vol] 25 mmol/L 23 - 31 mmol/L [facility] Creatinine [Mass/Vol] 3.82 mg/dL High 0.57 - 1.11 mg/dL [facility] GFR/1.73 sq M.predicted (S/P/Bld) [Vol rate/Area] 11.9 mL/min Low - PINF [facility] Glucose [Mass/Vol] 47 mg/dL Critically low 82 - 11 5 mg/dL [facility] Interpretation and review of laboratory results Abnormal [facility] Potassium [Moles/Vol] 4.2 mmol/L 3.5 - 5.1 mmol/L [facility] Sodium [Moles/Vol] 134 mmol/L Low 136 - 145 mmol/L [facility] Urea nitrogen [Mass/Vol] 22 mg/dL 9 - 23 mg/dL [facility] C-REACTIVE PROTEINon 025 CRP [Mass/Vol] 133.0 mg/L High <5.0 [facility] Comment on above: Performed By: #### L AB67, LAB15, [id number], [id number] ####Waredresser: PHILLY FRANCO ([phone])[facility])[address] [place] [address] CBC (HEMOGRAM)on 12-13-2024 Erythrocyte distribution width (RBC) [Ratio] 17.6 % High 11.5-15.0 [facility] Comment on above: Performed By: #### L AB294 ####Waredresser: PHILLY FRANCO ([phone])[facility])[address] [place] [address] Hematocrit (Bld) [Volume fraction] 25.3 % Low 35.0-47.0 [facility] Comment on above: Performed By: #### L AB294 ####Waredresser: PHILLY FRANCO ([phone])[facility])[address] [place] [address] [place] Hemoglobin (Bld) [Mass/Vol] 8.0 g/dL Low 11.7-16.0 [facility] Comment on above: Performed By: #### L AB294 ####Waredresser: PHILLY [id number])[facility])[address] [place] [address] MCH (RBC) [Entitic mass] 29.1 pg Normal 26.0-34.0 [facility] Comment on above: Performed By: #### L AB294 ####Waredresser: PHILLY FRANCO ([phone])[facility] ([facility])[address] [place] [address] MCHC 31.6 % Normal 30.5-36.0 [facility] Comment on above: Performed By: #### L AB294 ####Waredresser: PHILLY FRANCO ([phone])[facility] ([facility])[address] [place] [address] MCV (RBC) [Entitic vol] 92.0 fL Normal 77.0-99.0 [facility] Comment on above: Performed By: #### L AB294 ####Waredresser: PHILLY FRANCO ([phone])[facility] ([facility])[address] [place] [address] Platelet mean volume (Bld) [Entitic vol] 10.5 fL Normal 9.0-12.7 [facility] Comment on above: Performed By: #### L AB294 ####Waredresser: PHILLY FRANCO ([phone])[facility] ([facility])[address] [place] [address] Platelets (Bld) [#/Vol] 312 10*3/uL Normal 140-440 [facility] Comment on above: Performed By: #### L AB294 ####Waredresser: PHILLY FRANCO ([phone])[facility] ([facility])[address] [place] [address] RBC (Bld) [#/Vol] 2.75 10*6/uL Low 3.80-5.20 [facility] Comment on above: Performed By: #### L AB294 ####Waredresser: PHILLY FRANCO ([phone])[facility] ([facility])[address] [place] [address] [place] WBC (Bld) [#/Vol] 16.5 10*3/uL High 3.6-10.7 [facility] Comment on above: Performed By: #### L AB294 ####Waredresser: PHILLY FRANCO ([phone])[facility] ([facility])[address] [place] [address] CBC panel Auto (Bld)on 12-13 Erythrocyte distribution width (RBC) [Ratio] 17.6 % High 11.5 - 15.0 % [facility] Hematocrit (Bld) [Volume fraction] 25.3 % Low 35.0 - 47.0 % [facility] Hemoglobin (Bld) [Mass/Vol] 8 g/dL Low 11.7 - 16.0 g/dL [facility] Interpretation and review of laboratory results Abnormal [facility] MCH (RBC) [Entitic mass] 29.1 pg 26.0 - 34.0 pg [facility] MCHC (RBC) [Mass/Vol] 31.6 % 30.5 - 36.0 % [facility] MCV (RBC) [Entitic vol] 92 fL 77.0 - 99.0 fL [facility] Platelet mean volume (Bld) [Entitic vol] 10.5 fL 9.0 - 12.7 fL [facility] Platelets (Bld) [#/Vol] 312 10*3/uL 140 - 440 10*3/uL [facility] RBC (Bld) [#/Vol] 2.75 10*6/uL Low 3.80 - 5.2 0 10*6/uL [facility] WBC (Bld) [#/Vol] 16.5 10*3/uL High 3.6 - 10.7 10*3/uL [facility] CRP [Mass/Vol]on 12-13-2024 Interpretation and review of laboratory results Abnormal [facility] Cobalamin (Vitamin B12) [Mas s/Vol]on 12-13-2024 Interpretation and review of laboratory results Abnormal [facility] Consulton 12-13-2024 Consult Normal [facility] Consult Normal [facility] Consult Normal [facility] ECG 12-LEADon 12-13-2024 ECG 12-LEAD IMPRESSION: Sinus rhythm Probable LVH with secondary repol abnrm Electronically Signed On 12-13-2024 19:24:44 EDT by Bhavik Estrada Normal [facility] Laboratory - Chemistry and C hemistry - challengeon 12-13-2024 Glucose [Mass/Vol] 105 mg/dL High 70 - 100 mg/dL [facility] Cobalamin (Vitamin B12) [Mass/Vol] 1419 pg/mL High 213 - 816 pg/mL [facility] TSH Qn 0.83 m[IU]/L [facility] Glucose [Mass/Vol] 105 mg/dL High 70 - 100 mg/dL [facility] CRP [Mass/Vol] 133 mg/L High NINF - 5.0 mg/L [facility] Glucose [Mass/Vol] 78 mg/dL 70 - 100 mg/dL [facility] Glucose [Mass/Vol] 55 mg/dL Low 70 - 100 mg/dL [facility] Laboratory - Drug toxicology on 12-13-2024 Vancomycin [Mass/Vol] 15.4 ug/mL [facility] [employer] No Panel InformationOrdered By: Bhavik Estrada on 12-13-2024 P [place] 61 degrees [facility] [employer] Work Phone: MS Interval 121 ms [facility] [employer] Work Phone: QRS [place] 20 degrees [facility] [employer] Work Phone: QRSD Interval 72 ms [employer] Work Phone: QT Interval 360 ms [employer] Work Phone: QTC Interval 451 ms [facility] [employer] Work Phone: T Wave [place] 19 degrees [facility] Work Phone: [facility] [employer] Work Phone: No Panel Informationon 12-13 CV EPIPHANY [facility] [employer] Interpretation and review of laboratory results Abnormal [facility] Interpretation and review of laboratory results Abnormal [facility] Interpretation and review of laboratory results Normal [facility] Interpretation and review of laboratory results Abnormal [facility] Nursing Noteon 12-13-2024 Nursing Note Brothzamzam Hess notified of using soft wrist restrained. Normal [facility] Nursing Note Unable to run pt tonight due to access issues, Dr Castaneda notified, order of cathflow ordered and placed in the access. Access to be reassessed in the morning. This RN will relay message to AM charge nurse. Normal [facility] Nursing Note Normal [facility] Progress Noteon 12-13-2024 Progress Note Normal [facility] Progress Note Normal [facility] Progress Note Normal [facility] Progress Note Normal [facility] Progress Note Normal [facility] Progress Note PHYSICAL THERAPY [facility] Name/MRN: Apoorva Gonzalez ([id number]) Date: 12/13/2024 Plans for MRI with sedation, also has pending shoulder x-rays. Will continue to hold and assess at a later time as able. Guilherme Tavares, PT Normal [facility] Progress Note Normal [facility] Progress Note To schedule mri with sedation please call [phone] [facility] THYROID STIMULATING HORMONEo n 12-13-2024 THYROID STIMULATING HORMONE 0.83 uIU/mL Normal 0.35-4.94 [facility] Comment on above: Performed By: #### L AB67, LAB15, [id number], LMS422 ####Waredresser: PHILLY FRANCO ([phone])[facility] [place] [address] TSH Qnon 12-13-2024 Interpretation and review of laboratory results Normal [facility] VANCOMYCIN, RANDOMon 025 VANCOMYCIN 15.4 ug/mL Normal [facility] Comment on above: Result Comment: GUERO Amanda COMMENTS:Please obtain 4 hours after the end of hemodialysisToxicity is seen at concentrations >80-100 ug/mLTherapeutic (Peak) range: 20-40Therapeutic (Trough) range: 5-10 Performed By: #### L AB40 ####Waredresser: PHILLY FRANCO ([phone])[facility] SYSTEM[facility])[address] [place] [address] VITAMIN B12on 12-13-2024 Cobalamin (Vitamin B12) [Mass/Vol] 1419 pg/mL High 213-816 [facility] Comment on above: Performed By: #### L AB67, LAB15, [id number], [id number] ####Waredresser: PHILLY FRANCO ([phone])[facility] ([facility])[address] [place] [address] Vital signsOrdered By: [place] on 12-13-2024 Heart rate 94 /min bpm [facility] [employer] Work Phone: XR SHOULDER 2+ VIEWS LEFTon 12-13-2024 XR SHOULDER 2+ VIEWS LEFT Normal [facility] XR Shoulder - left 2 Viewson 12-13-2024 [facility] Radiology Study observation (narrative) [facility] XR Shoulder - left 2 ViewsOr dered By: Barrera Stack on 12-13-2024 [facility] [employer] Work Phone: [phone] 12-12-2024 [id number] Normal [facility] [id number] 12-12-2024 [id number] Normal [facility] BLOOD CULTUREon 12-12-2024 Bacteria identified Cx Nom (Bld) Normal [facility] Comment on above: Performed By: #### L [id number] ####Waredresser: PHILLY FRANCO ([phone])[facility] [place] [address] CBC W Auto Differential pane l (Bld)on 12-12-2024 Basophils (Bld) [#/Vol] 0.1 10*3/uL 0.0 - 0.2 10*3/uL [facility] Basophils/100 WBC (Bld) 1.2 % 0.0 - 2.0 % [facility] Eosinophils (Bld) [#/Vol] 0.2 10*3/uL 0.0 - 0.5 10*3/uL [facility] Eosinophils/100 WBC (Bld) 2.1 % 0.0 - 6.0 % [facility] Erythrocyte distribution width (RBC) [Ratio] 17.8 % High 11.5 - 15.0 % [facility] Hematocrit (Bld) [Volume fraction] 24.8 % Low 35.0 - 47.0 % [facility] Hemoglobin (Bld) [Mass/Vol] 8 g/dL Low 11.7 - 16.0 g/dL [facility] [employer] Immature granulocytes (Bld) [#/Vol] 0.1 10*3/uL High NINF - 0.1 10*3/uL [facility] [employer] Immature granulocytes/100 WBC (Bld) 0.4 % 0.0 - 2.0 % [facility] [employer] Interpretation and review of laboratory results Abnormal [facility] [employer] Lymphocytes (Bld) [#/Vol] 1 10*3/uL 1.0 - 4.3 10*3/uL [facility] Lymphocytes/100 WBC (Bld) 8.5 % Low 15.0 - 45.0 % [facility] MCH (RBC) [Entitic mass] 29.7 pg 26.0 - 34.0 pg [facility] MCHC (RBC) [Mass/Vol] 32.3 % 30.5 - 36.0 % [facility] [employer] MCV (RBC) [Entitic vol] 92.2 fL 77.0 - 99.0 fL [facility] Monocytes (Bld) [#/Vol] 0.6 10*3/uL 0.0 - 0.9 10*3/uL [facility] [employer] Monocytes/100 WBC (Bld) 4.9 % Low 5.0 - 13.0 % [facility] [employer] Neutrophils (Bld) [#/Vol] 9.5 10*3/uL High 1.8 - 7.5 10*3/uL [facility] [employer] Neutrophils/100 WBC (Bld) 82.9 % High 38.0 - 82.0 % [facility] [employer] Nucleated RBC/100 WBC (Bld) [Ratio] 0 % [facility] [employer] Platelet mean volume (Bld) [Entitic vol] 10.7 fL 9.0 - 12.7 fL [facility] [employer] Platelets (Bld) [#/Vol] 332 10*3/uL 140 - 440 10*3/uL [facility] [employer] RBC (Bld) [#/Vol] 2.69 10*6/uL Low 3.80 - 5.2 0 10*6/uL [facility] [employer] WBC (Bld) [#/Vol] 11.5 10*3/uL High 3.6 - 10.7 10*3/uL [facility] CBC WITH AUTO DIFFERENTIALon 12-12-2024 Basophils (Bld) [#/Vol] 0.1 10*3/uL Normal 0.0-0.2 [facility] Comment on above: Performed By: #### L [id number] ####Waredresser: PHILLY FRANCO ([phone])[facility] ([facility])[address] [place] [address] Basophils/100 WBC (Bld) 1.2 % Normal 0.0-2.0 [facility] Comment on above: Performed By: #### L [id number] ####Waredresser: PHILLY FRANCO ([phone])[facility])[address] [place] [address] Eosinophils (Bld) [#/Vol] 0.2 10*3/uL Normal 0.0-0.5 [facility] Comment on above: Performed By: #### L [id number] ####Waredresser: PHILLY FRANCO ([phone])[facility])[address] [place] [address] Eosinophils/100 WBC (Bld) 2.1 % Normal 0.0-6.0 [facility] Comment on above: Performed By: #### L [id number] ####Waredresser: PHILLY FRANCO ([phone])[facility] ([facility])[address] [place] [address] Erythrocyte distribution width (RBC) [Ratio] 17.8 % High 11.5-15.0 [facility] Comment on above: Performed By: #### L [id number] ####Waredresser: PHILLY FRANCO ([phone])[address] Hematocrit (Bld) [Volume fraction] 24.8 % Low 35.0-47.0 [facility] Comment on above: Performed By: #### L [id number] ####Waredresser: PHILLY FRANCO ([phone])[facility])[address] [place] [address] Hemoglobin (Bld) [Mass/Vol] 8.0 g/dL Low 11.7-16.0 [facility] Comment on above: Performed By: #### L [id number] ####Waredresser: PHILLY FRANCO ([phone])[facility])[address] [place] [address] IMMATURE GRANS % 0.4 % Normal 0.0-2.0 [facility] Comment on above: Performed By: #### L [id number] ####Waredresser: PHILLY FRANCO ([phone])[facility])[address] [place] [address] IMMATURE GRANS ABSOLUTE 0.1 10*3/uL High <0.1 [facility] Comment on above: Performed By: #### L [id number] ####Waredresser: PHILLY FRANCO ([phone])[facility])[address] [place] [address] Lymphocytes (Bld) [#/Vol] 1.0 10*3/uL Normal 1.0-4.3 [facility] Comment on above: Performed By: #### L [id number] ####Waredresser: PHILLY FRANCO ([phone])[facility])[address] [place] [address] Lymphocytes/100 WBC (Bld) 8.5 % Low 15.0-45.0 [facility] Comment on above: Performed By: #### L [id number] ####Waredresser: PHILLY FRANCO ([phone])[facility])[address] [place] [address] MCH (RBC) [Entitic mass] 29.7 pg Normal 26.0-34.0 [facility] Comment on above: Performed By: #### L [id number] ####Waredresser: PHILLY FRANCO ([phone])[facility])[address] [place] [address] MCHC 32.3 % Normal 30.5-36.0 [facility] Comment on above: Performed By: #### L [id number] ####Waredresser: PHILLY FRANCO ([phone])[facility])[address] [place] [address] MCV (RBC) [Entitic vol] 92.2 fL Normal 77.0-99.0 [facility] Comment on above: Performed By: #### L [id number] ####Waredresser: PHILLY FRANCO ([phone])[facility] ([facility])[address] [place] [address] Monocytes (Bld) [#/Vol] 0.6 10*3/uL Normal 0.0-0.9 [facility] Comment on above: Performed By: #### L [id number] ####Waredresser: PHILLY FRANCO ([phone])[facility] ([facility])[address] [place] [address] Monocytes/100 WBC (Bld) 4.9 % Low 5.0-13.0 [facility] Comment on above: Performed By: #### L [id number] ####Waredresser: PHILLY FRANCO ([phone])[facility] ([facility])[address] [place] [address] NEUTROPHILS ABSOLUTE 9.5 10*3/uL High 1.8-7.5 [facility] Comment on above: Performed By: #### L [id number] ####Waredresser: PHILLY FRANCO ([phone])[facility] ([facility])[address] [place] [address] Neutrophils/100 WBC (Bld) 82.9 % High 38.0-82.0 [facility] Comment on above: Performed By: #### L [id number] ####Waredresser: PHILLY FRANCO ([phone])[facility])[address] [place] [address] NRBC 0.0 /100 WBCs Normal 0.0-2.0 [facility] Comment on above: Performed By: #### L [id number] ####Waredresser: PHILLY FRANCO ([phone])[facility])[address] [place] [address] Platelet mean volume (Bld) [Entitic vol] 10.7 fL Normal 9.0-12.7 [facility] Comment on above: Performed By: #### L [id number] ####Waredresser: PHILLY [id number])[facility] ([facility])[address] [place] [address] Platelets (Bld) [#/Vol] 332 10*3/uL Normal 140-440 [facility] Comment on above: Performed By: #### L [id number] ####Waredresser: PHILLY FRANCO ([phone])[facility] ([facility])[address] [place] [address] RBC (Bld) [#/Vol] 2.69 10*6/uL Low 3.80-5.20 [facility] Comment on above: Performed By: #### L [id number] ####Waredresser: PHILLY FRANCO ([phone])[facility] ([facility])[address] [place] [address] WBC (Bld) [#/Vol] 11.5 10*3/uL High 3.6-10.7 [facility] Comment on above: Performed By: #### L [id number] ####Waredresser: PHILLY FRANCO ([phone])[facility] ([facility])[address] [place] [address] COMPREHENSIVE METABOLIC PANE Fam 12-12-2024 Albumin [Mass/Vol] 1.4 g/dL Low 3.4-4.8 [facility] Comment on above: Performed By: #### L [id number] ####Waredresser: PHILLY FRANCO ([phone])[facility] ([facility])[address] [place] [address] ALP [Catalytic activity/Vol] 131 U/L Normal 40-150 [facility] Comment on above: Performed By: #### L [id number] ####Waredresser: PHILLY FRANCO ([phone])[facility])[address] [place] [address] ALT [Catalytic activity/Vol] 10 U/L Normal <30 [facility] Comment on above: Performed By: #### L [id number] ####Waredresser: PHILLY FRANCO ([phone])[facility])[address] [place] [address] Anion gap [Moles/Vol] 11 mmol/L Normal 3-13 [facility] Comment on above: Performed By: #### L [id number] ####Waredresser: PHILLY FRANCO ([phone])[facility] ([facility])[address] [place] [address] AST [Catalytic activity/Vol] 36 U/L High <34 [facility] Comment on above: Performed By: #### L [id number] ####Waredresser: PHILLY FRANCO ([phone])[facility] ([facility])[address] [place] [address] Bilirubin [Mass/Vol] 0.4 mg/dL Normal <1.2 [facility] Comment on above: Performed By: #### L [id number] ####Waredresser: PHILLY FRANCO ([phone])[facility] ([facility])[address] [place] [address] Calcium [Mass/Vol] 7.8 mg/dL Low 8.8-10.0 [facility] Comment on above: Performed By: #### L [id number] ####Waredresser: PHILLY FRANCO ([phone])[facility] ([facility])[address] [place] [address] Chloride [Moles/Vol] 100 mmol/L Normal 98-107 [facility] Comment on above: Performed By: #### L [id number] ####Waredresser: PHILLY FRANCO ([phone])[facility])[address] [place] [address] CO2 [Moles/Vol] 26 mmol/L Normal 23-31 [facility] Comment on above: Performed By: #### L [id number] ####Waredresser: PHILLY FRANCO ([phone])[facility])[address] [place] [address] Creatinine [Mass/Vol] 5.60 mg/dL High 0.57-1.11 [facility] Comment on above: Performed By: #### L [id number] ####Waredresser: PHILLY FRANCO ([phone])[facility])[address] [place] [address] [place] GLOMERULAR FILTRATION RATE ML/MIN/1.73 SQ M.PREDICTED 7.5 mL/min/1.73m*2 Low >60.0 [facility] Comment on above: Result Comment: Calc ulation based on the Chronic Kidney Disease Epidemiology Collaboration (CKD-EPI) equation refit without adjustment for race Performed By: #### L [id number] ####Waredresser: PHILLY FRANCO ([phone])[facility])[address] [place] [address] Glucose [Mass/Vol] 77 mg/dL Low 82-115 [facility] Comment on above: Performed By: #### L [id number] ####Waredresser: PHILLY FRANCO ([phone])[facility])[address] [place] [address] Potassium [Moles/Vol] 4.1 mmol/L Normal 3.5-5.1 [facility] Comment on above: Result Comment: [facility] potassium values may be up to 0.5 mmol/L lower than serum values. Performed By: #### L [id number] ####Waredresser: PHILLY FRANCO ([phone])[facility])[address] [place] [address] Protein [Mass/Vol] 6.1 g/dL Low 6.4-8.3 [facility] Comment on above: Performed By: #### L [id number] ####Waredresser: PHILLY FRANCO ([phone])[facility])[address] [place] [address] [place] Sodium [Moles/Vol] 137 mmol/L Normal 136-145 [facility] Comment on above: Performed By: #### L [id number] ####Waredresser: PHILLY FRANCO ([phone])[facility])[address] [place] [address] [place] Urea nitrogen [Mass/Vol] 38 mg/dL High 9-23 [facility] Comment on above: Performed By: #### L [id number] ####Waredresser: PHILLY [id number])[facility] ([facility])[address] [place] [address] CT HEAD WO IV CONTRASTon CT HEAD WO IV CONTRAST Normal [facility] CT Head WO contraston 2024 [facility] Radiology Study observation (narrative) [facility] Comprehensive metabolic 1998 panelon 12-12-2024 Albumin [Mass/Vol] 1.4 g/dL Low 3.4 - 4.8 g/dL [facility] ALP [Catalytic activity/Vol] 131 U/L 40 - 150 U/L [facility] ALT [Catalytic activity/Vol] 10 U/L NINF - 30 U/L [facility] Anion gap [Moles/Vol] 11 mmol/L 3 - 13 mmol/L [facility] AST [Catalytic activity/Vol] 36 U/L High NINF - 34 U/L [facility] Bilirubin [Mass/Vol] 0.4 mg/dL NINF - 1.2 mg/dL [facility] Calcium [Mass/Vol] 7.8 mg/dL Low 8.8 - 10. 0 mg/dL [facility] Chloride [Moles/Vol] 100 mmol/L 98 - 10 7 mmol/L [facility] CO2 [Moles/Vol] 26 mmol/L 23 - 31 mmol/L [facility] Creatinine [Mass/Vol] 5.6 mg/dL High 0.57 - 1.11 mg/dL [facility] GFR/1.73 sq M.predicted (S/P/Bld) [Vol rate/Area] 7.5 mL/min Low - PINF [facility] Glucose [Mass/Vol] 77 mg/dL Low 82 - 115 mg/dL [facility] Interpretation and review of laboratory results Abnormal [facility] Potassium [Moles/Vol] 4.1 mmol/L 3.5 - 5.1 mmol/L [facility] Protein [Mass/Vol] 6.1 g/dL Low 6.4 - 8.3 g/dL [facility] Sodium [Moles/Vol] 137 mmol/L 136 - 145 mmol/L [facility] Urea nitrogen [Mass/Vol] 38 mg/dL High 9 - 23 mg/dL [facility] Consulton 12-12-2024 Consult Normal [facility] Laboratory - Chemistry and C hemistry - challengeon 12-12-2024 Glucose [Mass/Vol] 117 mg/dL High 70 - 100 mg/dL [facility] Glucose [Mass/Vol] 63 mg/dL Low 70 - 100 mg/dL [facility] Glucose [Mass/Vol] 72 mg/dL 70 - 100 mg/dL [facility] No Panel Informationon 12-12 Interpretation and review of laboratory results Abnormal [facility] Interpretation and review of laboratory results Abnormal [facility] Interpretation and review of laboratory results Normal [facility] Nursing Noteon 12-12-2024 Nursing Note Normal [facility] Nursing Note Patient's significan t other had to be stopped from pouring water into patient's mouth. He said that he knows she has to be thirsty. RN educated on why you cannot do this as it can cause aspiration. Normal [facility] Nursing Note Normal [facility] Nursing Note Normal [facility] Nursing Note Patient to xray Normal [facility] Progress Noteon 12-12-2024 Progress Note OCCUPATIONAL THERAPY [facility] Name/MRN: Apoorva Gonzalez ([id number]) Date: 12/12/2024 Attempt Note Attempted OT eval. Awaiting results of C-spine MRI. ~Jelly Gleason MS, OTR/L Normal [facility] Progress Note Normal [facility] Progress Note Normal [facility] Progress Note Normal [facility] Progress Note Normal [facility] Progress Note MRI attempted again; pt. Unable to tolerate exam. Pt. Very confused, hitting head on camera, swinging arms and groaning. Too dangerous to leave pt. Alone on scanner due to fear of personal injury to self. MRI aborted. Normal [facility] Progress Note Normal [facility] XR ABDOMEN 1 VIEWon 12-13-19 25 XR ABDOMEN 1 VIEW Normal [facility] XR Abdomen Single viewon [facility] XR CHEST 1 VIEWon 12-12-2024 XR CHEST 1 VIEW Normal [facility] XR Chest Single viewon 12-12 [facility] 25-hydroxyvitamin D3 [Mass/V ol]on 12-11-2024 Interpretation and review of laboratory results Abnormal [facility] BLOOD GAS ARTERIALon 025 AMOUNT OF OXYGEN 21 Normal [facility] Comment on above: Performed By: #### L [id number] ####Waredresser: PHILLY FRANCO ([phone])[facility])[address] [place] [address] Base excess Calc (Bld) [Moles/Vol] 3.6 mmol/L High -3.0-3.0 [facility] Comment on above: Performed By: #### L AB76 ####Waredresser: PHILLY FRANCO ([phone])[facility])[address] [place] [address] CO2 [Moles/Vol] 28.8 mmol/L High 23.0-27.0 [facility] Comment on above: Performed By: #### L AB76 ####Waredresser: PHILLY FRANCO ([phone])[facility])[address] [place] [address] HCO3 (Bld) [Moles/Vol] 27.6 mmol/L High 21.0-25.0 [facility] Comment on above: Performed By: #### L AB76 ####Waredresser: PHILLY FRANCO ([phone])[facility])[address] [place] [address] Hemoglobin (Bld) [Mass/Vol] 9.3 g/dL Normal Screen only [facility] Comment on above: Performed By: #### L AB76 ####Waredresser: PHILLY FRANCO ([phone])[facility])[address] [place] [address] OXYGEN SATURATION (%) IN ARTERIAL BLOOD 85.3 % Low 95.0-100.0 [facility] Comment on above: Performed By: #### L [id number] ####Waredresser: PHILLY FRANCO ([phone])[facility])[address] [place] [address] [place] PCO2 ARTERIAL 39.5 mm Hg Normal >35.0-<45.0 [facility] Comment on above: Performed By: #### L [id number] ####Waredresser: PHILLY FRANCO ([phone])[facility] [place] [address] PH ARTERIAL 7.462 High 7.350-7.450 [facility] Comment on above: Performed By: #### L AB76 ####Waredresser: PHILLY FRANCO ([phone])[facility] [place] [address] PO2 ARTERIAL 51.0 mm Hg Low 80.0-100.0 [facility] Comment on above: Performed By: #### L [id number] ####Waredresser: PHILLY FRANCO ([phone])[facility] ([facility])[address] [place] [address] SOURCE OF OXYGEN None (Room Air) Normal [facility] Comment on above: Performed By: #### L [id number] ####Waredresser: PHILLY FRANCO ([phone])[facility] [place] [address] CBC W Auto Differential pane l (Bld)Ordered By: Andre Ervin on 12-11-2024 Basophils (Bld) [#/Vol] 0.1 10*3/uL 0.0 - 0.2 10*3/uL [facility] Basophils/100 WBC (Bld) 1.1 % 0.0 - 2.0 % [facility] Eosinophils (Bld) [#/Vol] 0.4 10*3/uL 0.0 - 0.5 10*3/uL [facility] Eosinophils/100 WBC (Bld) 3.2 % 0.0 - 6.0 % [facility] [employer] Erythrocyte distribution width (RBC) [Ratio] 18.3 % High 11.5 - 15.0 % [facility] [employer] Hematocrit (Bld) [Volume fraction] 23.6 % Low 35.0 - 47.0 % [facility] [employer] Hemoglobin (Bld) [Mass/Vol] 7.7 g/dL Low 11.7 - 16.0 g/dL [facility] [employer] Immature granulocytes (Bld) [#/Vol] 0 10*3/uL NINF - 0.1 10*3/uL [facility] [employer] Immature granulocytes/100 WBC (Bld) 0.3 % 0.0 - 2.0 % [facility] Interpretation and review of laboratory results Abnormal [facility] IPF 2 [facility] Lymphocytes (Bld) [#/Vol] 1.3 10*3/uL 1.0 - 4.3 10*3/uL [facility] Lymphocytes/100 WBC (Bld) 10.5 % Low 15.0 - 45.0 % [facility] MCH (RBC) [Entitic mass] 30 pg 26.0 - 34.0 pg [facility] MCHC (RBC) [Mass/Vol] 32.6 % 30.5 - 36.0 % [facility] MCV (RBC) [Entitic vol] 91.8 fL 77.0 - 99.0 fL [facility] Monocytes (Bld) [#/Vol] 0.5 10*3/uL 0.0 - 0.9 10*3/uL [facility] Monocytes/100 WBC (Bld) 4.4 % Low 5.0 - 13.0 % [facility] Neutrophils (Bld) [#/Vol] 9.8 10*3/uL High 1.8 - 7.5 10*3/uL [facility] Neutrophils/100 WBC (Bld) 80.5 % 38.0 - 82.0 % [facility] Nucleated RBC/100 WBC (Bld) [Ratio] 0 % [facility] Platelet mean volume (Bld) [Entitic vol] 10.6 fL 9.0 - 12.7 fL [facility] Platelets (Bld) [#/Vol] 300 10*3/uL 140 - 440 10*3/uL [facility] RBC (Bld) [#/Vol] 2.57 10*6/uL Low 3.80 - 5.2 0 10*6/uL [facility] WBC (Bld) [#/Vol] 12.1 10*3/uL High 3.6 - 10.7 10*3/uL [facility] CBC WITH AUTO DIFFERENTIALon 12-11-2024 Basophils (Bld) [#/Vol] 0.1 10*3/uL Normal 0.0-0.2 [facility] Comment on above: Performed By: #### L [id number] ####Waredresser: PHILLY FRANCO ([phone])[facility])[address] [place] [address] Basophils/100 WBC (Bld) 1.1 % Normal 0.0-2.0 [facility] Comment on above: Performed By: #### L [id number] ####Waredresser: PHILLY FRANCO ([phone])[facility] ([facility])[address] [place] [address] Eosinophils (Bld) [#/Vol] 0.4 10*3/uL Normal 0.0-0.5 [facility] Comment on above: Performed By: #### L [id number] ####Waredresser: PHILLY FRANCO ([phone])[facility])[address] [place] [address] Eosinophils/100 WBC (Bld) 3.2 % Normal 0.0-6.0 [facility] Comment on above: Performed By: #### L [id number] ####Waredresser: PHILLY FRANCO ([phone])[facility])[address] [place] [address] Erythrocyte distribution width (RBC) [Ratio] 18.3 % High 11.5-15.0 [facility] Comment on above: Performed By: #### L [id number] ####Waredresser: PHILLY FRANCO ([phone])[facility])[address] [place] [address] Hematocrit (Bld) [Volume fraction] 23.6 % Low 35.0-47.0 [facility] Comment on above: Performed By: #### L [id number] ####Waredresser: PHILLY FRANCO ([phone])[facility])[address] [place] [address] Hemoglobin (Bld) [Mass/Vol] 7.7 g/dL Low 11.7-16.0 [facility] Comment on above: Performed By: #### L [id number] ####Waredresser: PHILLY FRANCO ([phone])[facility])[address] [place] [address] IMMATURE GRANS % 0.3 % Normal 0.0-2.0 [facility] Comment on above: Performed By: #### L [id number] ####Waredresser: PHILLY FRANCO ([phone])[facility])[address] [place] [address] IMMATURE GRANS ABSOLUTE 0.0 10*3/uL Normal <0.1 [facility] [facility] Comment on above: Performed By: #### L [id number] ####Waredresser: PHILLY FRANCO ([phone])[address] IPF 2 Normal [facility] Comment on above: Performed By: #### L [id number] ####Waredresser: PHILLY FRANCO ([phone])[facility])[address] [place] [address] Lymphocytes (Bld) [#/Vol] 1.3 10*3/uL Normal 1.0-4.3 [facility] Comment on above: Performed By: #### L [id number] ####Waredresser: PHILLY FRANCO ([phone])[address] Lymphocytes/100 WBC (Bld) 10.5 % Low 15.0-45.0 [facility] Comment on above: Performed By: #### L [id number] ####Waredresser: PHILLY FRANCO ([phone])[facility])[address] [place] [address] MCH (RBC) [Entitic mass] 30.0 pg Normal 26.0-34.0 [facility] Comment on above: Performed By: #### L [id number] ####Waredresser: PHILLY FRANCO ([phone])[facility])[address] [place] [address] MCHC 32.6 % Normal 30.5-36.0 [facility] Comment on above: Performed By: #### L [id number] ####Waredresser: PHILLY FRANCO ([phone])[facility])[address] [place] [address] MCV (RBC) [Entitic vol] 91.8 fL Normal 77.0-99.0 [facility] Comment on above: Performed By: #### L [id number] ####Waredresser: PHILLY FRANCO ([phone])[facility])[address] [place] [address] Monocytes (Bld) [#/Vol] 0.5 10*3/uL Normal 0.0-0.9 [facility] Comment on above: Performed By: #### L [id number] ####Waredresser: PHILLY FRACNO ([phone])[facility])[address] [place] [address] Monocytes/100 WBC (Bld) 4.4 % Low 5.0-13.0 [facility] Comment on above: Performed By: #### L [id number] ####Waredresser: PHILLY FRANCO ([phone])[facility] ([facility])[address] [place] [address] NEUTROPHILS ABSOLUTE 9.8 10*3/uL High 1.8-7.5 [facility] Comment on above: Performed By: #### L [id number] ####Waredresser: PHILLY FRANCO ([phone])[facility])[address] [place] [address] Neutrophils/100 WBC (Bld) 80.5 % Normal 38.0-82.0 [facility] Comment on above: Performed By: #### L [id number] ####Waredresser: PHILLY FRANCO ([phone])[facility])[address] [place] [address] NRBC 0.0 /100 WBCs Normal 0.0-2.0 [facility] Comment on above: Performed By: #### L [id number] ####Waredresser: PHILLY FRANCO ([phone])[facility] ([facility])[address] [place] [address] Platelet mean volume (Bld) [Entitic vol] 10.6 fL Normal 9.0-12.7 [facility] Comment on above: Performed By: #### L [id number] ####Waredresser: PHILLY FRANCO ([phone])[facility] ([facility])[address] [place] [address] Platelets (Bld) [#/Vol] 300 10*3/uL Normal 140-440 [facility] Comment on above: Performed By: #### L [id number] ####Waredresser: PHILLY FRANCO ([phone])[facility] ([facility])[address] [place] [address] RBC (Bld) [#/Vol] 2.57 10*6/uL Low 3.80-5.20 [facility] Comment on above: Performed By: #### L [id number] ####Waredresser: PHILLY FRANCO ([phone])[facility] ([facility])[address] [place] [address] WBC (Bld) [#/Vol] 12.1 10*3/uL High 3.6-10.7 [facility] Comment on above: Performed By: #### L [id number] ####Waredresser: PHILLY FRANCO ([phone])[facility] ([facility])[address] [place] [address] COMPREHENSIVE METABOLIC PANE Fam 12-11-2024 Albumin [Mass/Vol] 1.5 g/dL Low 3.4-4.8 [facility] Comment on above: Performed By: #### L [id number] ####Waredresser: PHILLY FRANCO ([phone])[facility])[address] [place] [address] ALP [Catalytic activity/Vol] 149 U/L Normal 40-150 [facility] Comment on above: Performed By: #### L [id number] ####Waredresser: PHILLY FRANCO ([phone])[facility] [place] [address] ALT [Catalytic activity/Vol] 13 U/L Normal <30 [facility] Comment on above: Performed By: #### L [id number] ####Waredresser: PHILLY FRANCO ([phone])[facility] ([facility])[address] [place] [address] Anion gap [Moles/Vol] 11 mmol/L Normal 3-13 [facility] Comment on above: Performed By: #### L [id number] ####Waredresser: PHILLY FRANCO ([phone])[facility] ([facility])[address] [place] [address] AST [Catalytic activity/Vol] 41 U/L High <34 [facility] Comment on above: Performed By: #### L [id number] ####Waredresser: PHILLY FRANCO ([phone])[facility] ([facility])[address] [place] [address] Bilirubin [Mass/Vol] 0.4 mg/dL Normal <1.2 [facility] Comment on above: Performed By: #### L [id number] ####Waredresser: PHILLY FRANCO ([phone])[facility])[address] [place] [address] Calcium [Mass/Vol] 8.0 mg/dL Low 8.8-10.0 [facility] Comment on above: Performed By: #### L [id number] ####Waredresser: PHILLY FRANCO ([phone])[facility])[address] [place] [address] Chloride [Moles/Vol] 100 mmol/L Normal 98-107 [facility] Comment on above: Performed By: #### L [id number] ####Waredresser: PHILLY FRANCO ([phone])[facility])[address] [place] [address] CO2 [Moles/Vol] 27 mmol/L Normal 23-31 [facility] Comment on above: Performed By: #### L [id number] ####Waredresser: PHILLY FRANCO ([phone])[facility])[address] [place] [address] Creatinine [Mass/Vol] 4.96 mg/dL High 0.57-1.11 [facility] Comment on above: Performed By: #### L [id number] ####Waredresser: PHILLY FRANCO ([phone])[facility])[address] [place] [address] [place] GLOMERULAR FILTRATION RATE ML/MIN/1.73 SQ M.PREDICTED 8.7 mL/min/1.73m*2 Low >60.0 [facility] Comment on above: Result Comment: Calc ulation based on the Chronic Kidney Disease Epidemiology Collaboration (CKD-EPI) equation refit without adjustment for race Performed By: #### L [id number] ####Waredresser: PHILLY FRANCO ([phone])[facility] ([facility])[address] [place] [address] [place] Glucose [Mass/Vol] 74 mg/dL Low 82-115 [facility] Comment on above: Performed By: #### L [id number] ####Waredresser: PHILLY FRANCO ([phone])[facility])[address] [place] [address] Potassium [Moles/Vol] 3.7 mmol/L Normal 3.5-5.1 [facility] Comment on above: Result Comment: [facility] potassium values may be up to 0.5 mmol/L lower than serum values. Performed By: #### L [id number] ####Waredresser: PHILLY FRANCO ([phone])[facility] ([facility])[address] [place] [address] Protein [Mass/Vol] 6.5 g/dL Normal 6.4-8.3 [facility] Comment on above: Performed By: #### L [id number] ####Waredresser: PHILLY FRANCO ([phone])[facility])[address] [place] [address] Sodium [Moles/Vol] 138 mmol/L Normal 136-145 [facility] Comment on above: Performed By: #### L [id number] ####Waredresser: PHILLY FRANCO ([phone])[facility] ([facility])[address] [place] [address] Urea nitrogen [Mass/Vol] 32 mg/dL High 9-23 [facility] Comment on above: Performed By: #### L [id number] ####Waredresser: PHILLY FRANCO ([phone])[facility] ([facility])[address] [place] [address] CT HEAD WO IV CONTRASTon CT HEAD WO IV CONTRAST Normal [facility] CT Head WO contraston 2024 [facility] Comprehensive metabolic 1998 panelon 12-11-2024 Albumin [Mass/Vol] 1.5 g/dL Low 3.4 - 4.8 g/dL [facility] ALP [Catalytic activity/Vol] 149 U/L 40 - 150 U/L [facility] ALT [Catalytic activity/Vol] 13 U/L NINF - 30 U/L [facility] Anion gap [Moles/Vol] 11 mmol/L 3 - 13 mmol/L [facility] AST [Catalytic activity/Vol] 41 U/L High NINF - 34 U/L [facility] Bilirubin [Mass/Vol] 0.4 mg/dL NINF - 1.2 mg/dL [facility] Calcium [Mass/Vol] 8 mg/dL Low 8.8 - 10. 0 mg/dL [facility] Chloride [Moles/Vol] 100 mmol/L 98 - 10 7 mmol/L [facility] CO2 [Moles/Vol] 27 mmol/L 23 - 31 mmol/L [facility] Creatinine [Mass/Vol] 4.96 mg/dL High 0.57 - 1.11 mg/dL [facility] GFR/1.73 sq M.predicted (S/P/Bld) [Vol rate/Area] 8.7 mL/min Low - PINF [facility] Glucose [Mass/Vol] 74 mg/dL Low 82 - 115 mg/dL [facility] Interpretation and review of laboratory results Abnormal [facility] Potassium [Moles/Vol] 3.7 mmol/L 3.5 - 5.1 mmol/L [facility] Protein [Mass/Vol] 6.5 g/dL 6.4 - 8.3 g/dL [facility] Sodium [Moles/Vol] 138 mmol/L 136 - 145 mmol/L [facility] Urea nitrogen [Mass/Vol] 32 mg/dL High 9 - 23 mg/dL [facility] Consulton 12-11-2024 Consult Normal [facility] LACTIC ACID WITH REFLEXon Lactate [Moles/Vol] 0.6 mmol/L Normal 0.5-2.2 [facility] Comment on above: Performed By: #### L [id number] ####Waredresser: PHILLY FRANCO ([phone])[facility] ([address] Laboratory - Chemistry and C hemistry - challengeon 12-11-2024 Lactate [Moles/Vol] 0.6 mmol/L 0.5 - 2. 2 mmol/L [facility] Base excess Calc (Bld) [Moles/Vol] 3.6 mmol/L High -3.0 - 3.0 mmol/L [facility] CO2 (Bld) [Partial pressure] 39.5 mm[Hg] - PINF [facility] CO2 [Moles/Vol] 28.8 mmol/L High 23.0 - 27.0 mmol/L [facility] HCO3 (Bld) [Moles/Vol] 27.6 mmol/L High 21.0 - 25.0 mmol/L [facility] Oxygen (Bld) [Partial pressure] 51 mm[Hg] Low [facility] pH (Bld) 7.462 [pH] High 7.350 - 7.450 [facility] Glucose [Mass/Vol] 95 mg/dL 70 - 100 mg/dL [facility] 25-hydroxyvitamin D3 [Mass/Vol] 60 ng/mL High 20 - 50 ng/mL [facility] Laboratory - Hematology and Cell countson 12-11-2024 Hemoglobin (Bld) [Mass/Vol] 9.3 g/dL 7.0 g/dl [facility] No Panel Informationon 12-11 Radiology Study observation (narrative) [facility] Interpretation and review of laboratory results Normal [facility] Amount Of Oxygen 21 [facility] Interpretation and review of laboratory results Abnormal [facility] Source Of Oxygen None (Room Air) [facility] Interpretation and review of laboratory results Normal [facility] Nursing Noteon 12-11-2024 Nursing Note Spoke with MRI regarding pt being unable to answer MRI questions. Messaged curriculum consultant for order for chest xray and KUB. Normal [facility] Nursing Note Normal [facility] Progress Noteon 12-11-2024 Progress Note OCCUPATIONAL THERAPY [facility] Name/MRN: Apoorva Gonzalez ([id number]) Date: 12/11/2024 OT eval on hold pending MRI c-spine imaging. Will evaluate as appropriate. Leonila Rios, OT Normal [facility] Progress Note Normal [facility] Progress Note Normal [facility] Progress Note PHYSICAL THERAPY [facility] Name/MRN: Apoorva Gonzalez ([id number]) Date: 12/11/2024 PT held pending MRI c-spine imaging. Anitha Luna, PT Normal [facility] Progress Note Normal [facility] Progress Note Normal [facility] VITAMIN D DEFICIENCY SCREENI NG (VIT D 25)on 12-11-2024 VIT D 25-OH, TOTAL 60 ng/mL High See comment [facility] Comment on above: Result Comment: GUERO Amanda COMMENTS:Target concentration: 30 - 40 ng/mL; toxicity seen at concentrations >100 ng/mLLess than 20 ng/mL: Indicative of Vit D deficiencyTest performed by [employer], measuring Total Vitamin D, not individual fractions. Performed By: #### L [id number] ####Waredresser: PHILLY FRANCO ([phone])[facility] ([facility] CBC W Auto Differential pane l (Bld)on 12-10-2024 Basophils (Bld) [#/Vol] 0.1 10*3/uL 0.0 - 0.2 10*3/uL [facility] Basophils/100 WBC (Bld) 1.3 % 0.0 - 2.0 % [facility] Eosinophils (Bld) [#/Vol] 0.3 10*3/uL 0.0 - 0.5 10*3/uL [facility] Eosinophils/100 WBC (Bld) 2.6 % 0.0 - 6.0 % [facility] [employer] Erythrocyte distribution width (RBC) [Ratio] 18.6 % High 11.5 - 15.0 % [facility] [employer] Hematocrit (Bld) [Volume fraction] 23.2 % Low 35.0 - 47.0 % [facility] Hemoglobin (Bld) [Mass/Vol] 7.3 g/dL Low 11.7 - 16.0 g/dL [facility] [employer] Immature granulocytes (Bld) [#/Vol] 0 10*3/uL NINF - 0.1 10*3/uL [facility] Immature granulocytes/100 WBC (Bld) 0.4 % 0.0 - 2.0 % [facility] Interpretation and review of laboratory results Abnormal [facility] [employer] Lymphocytes (Bld) [#/Vol] 1.4 10*3/uL 1.0 - 4.3 10*3/uL [facility] Lymphocytes/100 WBC (Bld) 14.1 % Low 15.0 - 45.0 % [facility] MCH (RBC) [Entitic mass] 29.1 pg 26.0 - 34.0 pg [facility] MCHC (RBC) [Mass/Vol] 31.5 % 30.5 - 36.0 % [facility] MCV (RBC) [Entitic vol] 92.4 fL 77.0 - 99.0 fL [facility] [employer] Monocytes (Bld) [#/Vol] 0.7 10*3/uL 0.0 - 0.9 10*3/uL [facility] Monocytes/100 WBC (Bld) 7 % 5.0 - 13.0 % [facility] Neutrophils (Bld) [#/Vol] 7.6 10*3/uL High 1.8 - 7.5 10*3/uL [facility] Neutrophils/100 WBC (Bld) 74.6 % 38.0 - 82.0 % [facility] Nucleated RBC/100 WBC (Bld) [Ratio] 0 % [facility] [employer] Platelet mean volume (Bld) [Entitic vol] 10.3 fL 9.0 - 12.7 fL [facility] Platelets (Bld) [#/Vol] 293 10*3/uL 140 - 440 10*3/uL [facility] RBC (Bld) [#/Vol] 2.51 10*6/uL Low 3.80 - 5.2 0 10*6/uL [facility] WBC (Bld) [#/Vol] 10.2 10*3/uL 3.6 - 10.7 10*3/uL [facility] CBC WITH AUTO DIFFERENTIALon 12-10-2024 Basophils (Bld) [#/Vol] 0.1 10*3/uL Normal 0.0-0.2 [facility] Comment on above: Performed By: #### L [id number] ####Waredresser: PHILLY FRANCO ([phone])[facility])[address] [place] [address] Basophils/100 WBC (Bld) 1.3 % Normal 0.0-2.0 [facility] Comment on above: Performed By: #### L [id number] ####Waredresser: PHILLY FRANCO ([phone])[facility])[address] [place] [address] Eosinophils (Bld) [#/Vol] 0.3 10*3/uL Normal 0.0-0.5 [facility] Comment on above: Performed By: #### L [id number] ####Waredresser: PHILLY FRANCO ([phone])[facility])[address] [place] [address] Eosinophils/100 WBC (Bld) 2.6 % Normal 0.0-6.0 [facility] Comment on above: Performed By: #### L [id number] ####Waredresser: PHILLY FRANCO ([phone])[address] Erythrocyte distribution width (RBC) [Ratio] 18.6 % High 11.5-15.0 [facility] Comment on above: Performed By: #### L [id number] ####Waredresser: PHILLY FRANCO ([phone])[facility])[address] [place] [address] Hematocrit (Bld) [Volume fraction] 23.2 % Low 35.0-47.0 [facility] Comment on above: Performed By: #### L [id number] ####Waredresser: PHILLY FRANCO ([phone])[facility])[address] [place] [address] Hemoglobin (Bld) [Mass/Vol] 7.3 g/dL Low 11.7-16.0 [facility] Comment on above: Performed By: #### L [id number] ####Waredresser: PHILLY FRANCO ([phone])[facility])[address] [place] [address] IMMATURE GRANS % 0.4 % Normal 0.0-2.0 [facility] Comment on above: Performed By: #### L [id number] ####Waredresser: PHILLY FRANCO ([phone])[facility])[address] [place] [address] IMMATURE GRANS ABSOLUTE 0.0 10*3/uL Normal <0.1 [facility] Comment on above: Performed By: #### L [id number] ####Waredresser: PHILLY FRANCO ([phone])[facility])[address] [place] [address] Lymphocytes (Bld) [#/Vol] 1.4 10*3/uL Normal 1.0-4.3 [facility] Comment on above: Performed By: #### L [id number] ####Waredresser: PHILLY FRANCO ([phone])[facility])[address] [place] [address] Lymphocytes/100 WBC (Bld) 14.1 % Low 15.0-45.0 [facility] Comment on above: Performed By: #### L [id number] ####Waredresser: PHILLY FRANCO ([phone])[facility])[address] [place] [address] MCH (RBC) [Entitic mass] 29.1 pg Normal 26.0-34.0 [facility] Comment on above: Performed By: #### L [id number] ####Waredresser: PHILLY FRANCO ([phone])[facility])[address] [place] [address] MCHC 31.5 % Normal 30.5-36.0 [facility] Comment on above: Performed By: #### L [id number] ####Waredresser: PHILLY FRANCO ([phone])[facility] ([facility])[address] [place] [address] MCV (RBC) [Entitic vol] 92.4 fL Normal 77.0-99.0 [facility] Comment on above: Performed By: #### L [id number] ####Waredresser: PHILLY FRANCO ([phone])[facility] ([facility])[address] [place] [address] Monocytes (Bld) [#/Vol] 0.7 10*3/uL Normal 0.0-0.9 [facility] Comment on above: Performed By: #### L [id number] ####Waredresser: PHILLY FRANCO ([phone])[facility] ([facility])[address] [place] [address] Monocytes/100 WBC (Bld) 7.0 % Normal 5.0-13.0 [facility] Comment on above: Performed By: #### L [id number] ####Waredresser: PHILLY FRANCO ([phone])[facility] ([facility])[address] [place] [address] NEUTROPHILS ABSOLUTE 7.6 10*3/uL High 1.8-7.5 [facility] Comment on above: Performed By: #### L [id number] ####Waredresser: PHILLY FRANCO ([phone])[facility] ([facility])[address] [place] [address] Neutrophils/100 WBC (Bld) 74.6 % Normal 38.0-82.0 [facility] Comment on above: Performed By: #### L [id number] ####Waredresser: PHILLY FRANCO ([phone])[facility])[address] [place] [address] [place] NRBC 0.0 /100 WBCs Normal 0.0-2.0 [facility] Comment on above: Performed By: #### L [id number] ####Waredresser: PHILLY FRANCO ([phone])[facility] ([facility])[address] [place] [address] Platelet mean volume (Bld) [Entitic vol] 10.3 fL Normal 9.0-12.7 [facility] Comment on above: Performed By: #### L [id number] ####Waredresser: PHILLY FRANCO ([phone])[facility] ([facility])[address] [place] [address] Platelets (Bld) [#/Vol] 293 10*3/uL Normal 140-440 [facility] Comment on above: Performed By: #### L [id number] ####Waredresser: PHILLY FRANCO ([phone])[facility] ([facility])[address] [place] [address] RBC (Bld) [#/Vol] 2.51 10*6/uL Low 3.80-5.20 [facility] Comment on above: Performed By: #### L [id number] ####Waredresser: PHILLY FRANCO ([phone])[facility] ([facility])[address] [place] [address] WBC (Bld) [#/Vol] 10.2 10*3/uL Normal 3.6-10.7 [facility] Comment on above: Performed By: #### L [id number] ####Waredresser: PHILLY FRANCO ([phone])[facility] ([facility])[address] [place] [address] COMPREHENSIVE METABOLIC PANE Fam 12-10-2024 Albumin [Mass/Vol] 1.4 g/dL Low 3.4-4.8 [facility] Comment on above: Performed By: #### L [id number], LAB17 ####Waredresser: PHILLY FRANCO ([phone])[facility])[address] [place] [address] ALP [Catalytic activity/Vol] 125 U/L Normal 40-150 [facility] Comment on above: Performed By: #### L AB103, LAB17 ####Waredresser: PHILLY FRANCO ([phone])[facility] ([facility])[address] [place] [address] [place] ALT [Catalytic activity/Vol] 11 U/L Normal <30 [facility] Comment on above: Performed By: #### L AB103, LAB17 ####Waredresser: PHILLY FRANCO ([phone])[facility] ([facility])[address] [place] [address] [place] Anion gap [Moles/Vol] 10 mmol/L Normal 3-13 [facility] Comment on above: Performed By: #### L AB103, LAB17 ####Waredresser: PHILLY FRANCO ([phone])[facility] ([facility])[address] [place] [address] AST [Catalytic activity/Vol] 36 U/L High <34 [facility] Comment on above: Performed By: #### L AB103, LAB17 ####Waredresser: PHILLY FRANCO ([phone])[facility] ([facility])[address] [place] [address] Bilirubin [Mass/Vol] 0.4 mg/dL Normal <1.2 [facility] Comment on above: Performed By: #### L AB103, LAB17 ####Waredresser: PHILLY FRANCO ([phone])[facility] ([facility])[address] [place] [address] Calcium [Mass/Vol] 7.5 mg/dL Low 8.8-10.0 [facility] Comment on above: Performed By: #### L AB103, LAB17 ####Waredresser: PHILLY FRANCO ([phone])[facility] ([facility])[address] [place] [address] [place] Chloride [Moles/Vol] 99 mmol/L Normal 98-107 [facility] Comment on above: Performed By: #### L AB103, LAB17 ####[place]aredresser: PHILLY FRANCO ([phone])[facility] ([facility])[address] [place] [address] [place] CO2 [Moles/Vol] 26 mmol/L Normal 23-31 [facility] Comment on above: Performed By: #### L ENOCH, LAB17 ####[place]aredresser: PHILLY FRANCO ([phone])[facility])[address] [place] [address] Creatinine [Mass/Vol] 4.24 mg/dL High 0.57-1.11 [facility] Comment on above: Performed By: #### Jose KENDALL, LAB17 ####[place]aredresser: PHILLY FRANCO ([phone])[facility])[address] [place] [address] [place] GLOMERULAR FILTRATION RATE ML/MIN/1.73 SQ M.PREDICTED 10.5 mL/min/1.73m*2 Low >60.0 [facility] Comment on above: Result Comment: Calc ulation based on the Chronic Kidney Disease Epidemiology Collaboration (CKD-EPI) equation refit without adjustment for race Performed By: #### Jose KENDALL, LAB17 ####Waredresser: PHILLY FRANCO ([phone])[facility])[address] [place] [address] [place] Glucose [Mass/Vol] 74 mg/dL Low 82-115 [facility] Comment on above: Performed By: #### Jose KENDALL, LAB17 ####[place]aredresser: PHILLY FRANCO ([phone])[facility])[address] [place] [address] Potassium [Moles/Vol] 3.4 mmol/L Low 3.5-5.1 [facility] Comment on above: Result Comment: [facility] potassium values may be up to 0.5 mmol/L lower than serum values. Performed By: #### L ENOCH, LAB17 ####Waredresser: PHILLY FRANCO ([phone])[facility])[address] [place] [address] Protein [Mass/Vol] 5.7 g/dL Low 6.4-8.3 [facility] Comment on above: Performed By: #### L ENOCH, LAB17 ####Waredresser: PHILLY [id number])[facility] ([facility])[address] [place] [address] Sodium [Moles/Vol] 135 mmol/L Low 136-145 [facility] Comment on above: Performed By: #### L AB103, LAB17 ####Waredresser: PHILLY FRANCO ([phone])[facility] ([facility] [place] [address] Urea nitrogen [Mass/Vol] 25 mg/dL High 9-23 [facility] Comment on above: Performed By: #### L AB103, LAB17 ####Waredresser: PHILLY FRANCO ([phone])[facility] [place] [address] Comprehensive metabolic 1998 panelon 12-10-2024 Albumin [Mass/Vol] 1.4 g/dL Low 3.4 - 4.8 g/dL [facility] ALP [Catalytic activity/Vol] 125 U/L 40 - 150 U/L [facility] ALT [Catalytic activity/Vol] 11 U/L NINF - 30 U/L [facility] Anion gap [Moles/Vol] 10 mmol/L 3 - 13 mmol/L [facility] AST [Catalytic activity/Vol] 36 U/L High NINF - 34 U/L [facility] Bilirubin [Mass/Vol] 0.4 mg/dL NINF - 1.2 mg/dL [facility] Calcium [Mass/Vol] 7.5 mg/dL Low 8.8 - 10. 0 mg/dL [facility] Chloride [Moles/Vol] 99 mmol/L 98 - 10 7 mmol/L [facility] CO2 [Moles/Vol] 26 mmol/L 23 - 31 mmol/L [facility] Creatinine [Mass/Vol] 4.24 mg/dL High 0.57 - 1.11 mg/dL [facility] GFR/1.73 sq M.predicted (S/P/Bld) [Vol rate/Area] 10.5 mL/min Low - PINF [facility] Glucose [Mass/Vol] 74 mg/dL Low 82 - 115 mg/dL [facility] Interpretation and review of laboratory results Abnormal [facility] Potassium [Moles/Vol] 3.4 mmol/L Low 3.5 - 5.1 mmol/L [facility] Protein [Mass/Vol] 5.7 g/dL Low 6.4 - 8.3 g/dL [facility] Sodium [Moles/Vol] 135 mmol/L Low 136 - 145 mmol/L [facility] Urea nitrogen [Mass/Vol] 25 mg/dL High 9 - 23 mg/dL [facility] Consulton 12-10-2024 Consult Normal [facility] Laboratory - Chemistry and C hemistry - challengeon 12-10-2024 Magnesium [Mass/Vol] 1.8 mg/dL 1.6 - 2 .6 mg/dL [facility] MAGNESIUMon 12-10-2024 Magnesium [Mass/Vol] 1.8 mg/dL Normal 1.6-2.6 [facility] Comment on above: Result Comment: GUERO Amanda COMMENTS:Higher values can be expected in females during menses. Performed By: #### L AB103, LAB17 ####Waredresser: PHILLY FRANCO ([phone])[address] Magnesium [Mass/Vol]on 12-10 Interpretation and review of laboratory results Normal [facility] Nursing Noteon 12-10-2024 Nursing Note Unable to give IV antibiotic at this time due to occluded IV site. Was unsuccessful to place new IV so I called RR team to come place one. 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 Normal [facility] Progress Noteon 12-10-2024 Progress Note Normal [facility] Progress Note Normal [facility] CBC W Auto Differential pane l (Bld)on 12-09-2024 Basophils (Bld) [#/Vol] 0.1 10*3/uL 0.0 - 0.2 10*3/uL [facility] Basophils/100 WBC (Bld) 1.1 % 0.0 - 2.0 % [facility] Eosinophils (Bld) [#/Vol] 0.2 10*3/uL 0.0 - 0.5 10*3/uL [facility] Eosinophils/100 WBC (Bld) 2.3 % 0.0 - 6.0 % [facility] Erythrocyte distribution width (RBC) [Ratio] 18.7 % High 11.5 - 15.0 % [facility] Hematocrit (Bld) [Volume fraction] 23.5 % Low 35.0 - 47.0 % [facility] Hemoglobin (Bld) [Mass/Vol] 7.6 g/dL Low 11.7 - 16.0 g/dL [facility] Immature granulocytes (Bld) [#/Vol] 0 10*3/uL NINF - 0.1 10*3/uL [facility] [employer] Immature granulocytes/100 WBC (Bld) 0.2 % 0.0 - 2.0 % [facility] Interpretation and review of laboratory results Abnormal [facility] Lymphocytes (Bld) [#/Vol] 1.2 10*3/uL 1.0 - 4.3 10*3/uL [facility] Lymphocytes/100 WBC (Bld) 12.8 % Low 15.0 - 45.0 % [facility] MCH (RBC) [Entitic mass] 29.7 pg 26.0 - 34.0 pg [facility] MCHC (RBC) [Mass/Vol] 32.3 % 30.5 - 36.0 % [facility] MCV (RBC) [Entitic vol] 91.8 fL 77.0 - 99.0 fL [facility] [employer] Monocytes (Bld) [#/Vol] 0.8 10*3/uL 0.0 - 0.9 10*3/uL [facility] Monocytes/100 WBC (Bld) 7.8 % 5.0 - 13.0 % [facility] Neutrophils (Bld) [#/Vol] 7.4 10*3/uL 1.8 - 7.5 10*3/uL [facility] Neutrophils/100 WBC (Bld) 75.8 % 38.0 - 82.0 % [facility] Nucleated RBC/100 WBC (Bld) [Ratio] 0 % [facility] [employer] Platelet mean volume (Bld) [Entitic vol] 10.3 fL 9.0 - 12.7 fL [facility] Platelets (Bld) [#/Vol] 311 10*3/uL 140 - 440 10*3/uL [facility] RBC (Bld) [#/Vol] 2.56 10*6/uL Low 3.80 - 5.2 0 10*6/uL [facility] WBC (Bld) [#/Vol] 9.7 10*3/uL 3.6 - 10.7 10*3/uL [facility] CBC WITH AUTO DIFFERENTIALon 12-09-2024 Basophils (Bld) [#/Vol] 0.1 10*3/uL Normal 0.0-0.2 [facility] Comment on above: Performed By: #### L [id number] ####Waredresser: PHILLY FRANCO ([phone])[facility] ([facility])[address] [place] [address] Basophils/100 WBC (Bld) 1.1 % Normal 0.0-2.0 [facility] Comment on above: Performed By: #### L [id number] ####Waredresser: PHILLY FRANCO ([phone])[facility])[address] [place] [address] Eosinophils (Bld) [#/Vol] 0.2 10*3/uL Normal 0.0-0.5 [facility] Comment on above: Performed By: #### L [id number] ####Waredresser: PHILLY FRANCO ([phone])[facility] ([facility])[address] [place] [address] Eosinophils/100 WBC (Bld) 2.3 % Normal 0.0-6.0 [facility] Comment on above: Performed By: #### L [id number] ####Waredresser: PHILLY FRANCO ([phone])[facility])[address] [place] [address] Erythrocyte distribution width (RBC) [Ratio] 18.7 % High 11.5-15.0 [facility] Comment on above: Performed By: #### L [id number] ####Waredresser: PHILLY FRANCO ([phone])[facility] ([facility])[address] [place] [address] Hematocrit (Bld) [Volume fraction] 23.5 % Low 35.0-47.0 [facility] Comment on above: Performed By: #### L [id number] ####Waredresser: PHILLY FRANCO ([phone])[facility])[address] [place] [address] Hemoglobin (Bld) [Mass/Vol] 7.6 g/dL Low 11.7-16.0 [facility] Comment on above: Performed By: #### L [id number] ####Waredresser: PHILLY FRANCO ([phone])[facility])[address] [place] [address] IMMATURE GRANS % 0.2 % Normal 0.0-2.0 [facility] Comment on above: Performed By: #### L [id number] ####Waredresser: PHILLY FRANCO ([phone])[address] IMMATURE GRANS ABSOLUTE 0.0 10*3/uL Normal <0.1 [facility] Comment on above: Performed By: #### L [id number] ####Waredresser: PHILLY FRANCO ([phone])[address] Lymphocytes (Bld) [#/Vol] 1.2 10*3/uL Normal 1.0-4.3 [facility] Comment on above: Performed By: #### L [id number] ####Waredresser: PHILLY FRANCO ([phone])[address] Lymphocytes/100 WBC (Bld) 12.8 % Low 15.0-45.0 [facility] Comment on above: Performed By: #### L [id number] ####Waredresser: PHILLY FRANCO ([phone])[address] MCH (RBC) [Entitic mass] 29.7 pg Normal 26.0-34.0 [facility] Comment on above: Performed By: #### L [id number] ####Waredresser: PHILLY FRANCO ([phone])[address] MCHC 32.3 % Normal 30.5-36.0 [facility] Comment on above: Performed By: #### L [id number] ####Waredresser: PHILLY FRANCO ([phone])[facility] ([facility])[address] [place] [address] MCV (RBC) [Entitic vol] 91.8 fL Normal 77.0-99.0 [facility] Comment on above: Performed By: #### L [id number] ####Waredresser: PHILLY FRANCO ([phone])[facility] ([facility])[address] [place] [address] Monocytes (Bld) [#/Vol] 0.8 10*3/uL Normal 0.0-0.9 [facility] Comment on above: Performed By: #### L [id number] ####Waredresser: PHILLY FRANCO ([phone])[facility] ([facility])[address] [place] [address] Monocytes/100 WBC (Bld) 7.8 % Normal 5.0-13.0 S [facility] Comment on above: Performed By: #### L [id number] ####Waredresser: PHILLY FRANCO ([phone])[facility] ([facility])[address] [place] [address] NEUTROPHILS ABSOLUTE 7.4 10*3/uL Normal 1.8-7.5 [facility] Comment on above: Performed By: #### L [id number] ####Waredresser: PHILLY FRANCO ([phone])[facility] ([facility])[address] [place] [address] Neutrophils/100 WBC (Bld) 75.8 % Normal 38.0-82.0 [facility] Comment on above: Performed By: #### L [id number] ####Waredresser: PHILLY FRANCO ([phone])[facility] ([facility])[address] [place] [address] NRBC 0.0 /100 WBCs Normal 0.0-2.0 [facility] Comment on above: Performed By: #### L [id number] ####Waredresser: PHILLY FRANCO ([phone])[facility])[address] [place] [address] Platelet mean volume (Bld) [Entitic vol] 10.3 fL Normal 9.0-12.7 [facility] Comment on above: Performed By: #### L [id number] ####Waredresser: PHILLY FRANCO ([phone])[facility])[address] [place] [address] Platelets (Bld) [#/Vol] 311 10*3/uL Normal 140-440 [facility] Comment on above: Performed By: #### L [id number] ####Waredresser: PHILLY FRANCO ([phone])[facility])[address] [place] [address] RBC (Bld) [#/Vol] 2.56 10*6/uL Low 3.80-5.20 [facility] Comment on above: Performed By: #### L [id number] ####Waredresser: PHILLY FRANCO ([phone])[facility])[address] [place] [address] WBC (Bld) [#/Vol] 9.7 10*3/uL Normal 3.6-10.7 [facility] Comment on above: Performed By: #### L [id number] ####Waredresser: PHILLY FRANCO ([phone])[facility])[address] [place] [address] Consulton 12-09-2024 Consult Normal [facility] ED Nursing Noteon 12-09-2024 ED Nursing Note IV re established an d blood reconnected to complete infusion Normal [facility] ED Nursing Note US IV nurse called away to trauma. Will re attempt when able Normal [facility] ED Nursing Note Patient placed in hospital bed for comfort while awaiting inpatient room assignment. While removing old bed from room patient IV tubing got caught and IV was displaced. Blood product placed on hold at this time until new US IV can be established. Normal [facility] Laboratory - Chemistry and C hemistry - challengeon 12-09-2024 Albumin [Mass/Vol] 1.5 g/dL Low 3.4 - 4.8 g/dL [facility] Anion gap [Moles/Vol] 8 mmol/L 3 - 13 mmol/L [facility] Calcium [Mass/Vol] 7.6 mg/dL Low 8.8 - 10. 0 mg/dL [facility] Chloride [Moles/Vol] 96 mmol/L Low 98 - 10 7 mmol/L [facility] CO2 [Moles/Vol] 32 mmol/L High 23 - 31 mmol/L [facility] Creatinine [Mass/Vol] 3.73 mg/dL High 0.57 - 1.11 mg/dL [facility] GFR/1.73 sq M.predicted (S/P/Bld) [Vol rate/Area] 12.2 mL/min Low - PINF [facility] Glucose [Mass/Vol] 79 mg/dL Low 82 - 115 mg/dL [facility] Phosphate [Mass/Vol] 1.7 mg/dL Low 2.3 - 4 .7 mg/dL [facility] Potassium [Moles/Vol] 3.1 mmol/L Low 3.5 - 5.1 mmol/L [facility] Sodium [Moles/Vol] 136 mmol/L 136 - 145 mmol/L [facility] Urea nitrogen [Mass/Vol] 19 mg/dL 9 - 23 mg/dL [facility] No Panel Informationon 12-09 Interpretation and review of laboratory results Abnormal [facility] Blood Expiration Date S [facility] Crossmatch interpretation COMP [facility] Dispense Status Transfused [facility] Product Blood Type 5100 [facility] PRODUCT CODE [id number] [facility] ABO O [facility] Unit Number [id number] [facility] RH Positive [facility] Unit Volume 300 mL [facility] Nursing Noteon 12-09-2024 Nursing Note Pt states she would like to return [facility] discharge Normal [facility] Progress Noteon 12-09-2024 Progress Note 2nd attempt for MRI with meds patient still refusing exam Normal [facility] Progress Note Normal [facility] Progress Note Pt attempted MRI but could not complete the exam. Patient refusing to continue exam. Normal [facility] Progress Note OCCUPATIONAL THERAPY [id number] Date: 12/09/2024 OT orders received and chart reviewed. MRI pending c-spine for r/o discitis, will await results prior to initiating OT eval. Jelly Fischer, OT Normal [facility] Progress Note Normal [facility] Progress Note Normal [facility] RENAL FUNCTION PANELon 12-09 Albumin [Mass/Vol] 1.5 g/dL Low 3.4-4.8 [facility] Comment on above: Performed By: #### L [id number] ####Waredresser: PHILLY FRANCO ([phone])[facility] ([facility])[address] [place] [address] Anion gap [Moles/Vol] 8 mmol/L Normal 3-13 [facility] Comment on above: Performed By: #### L AB19 ####Waredresser: PHILLY FRANCO ([phone])[facility])[address] [place] [address] Calcium [Mass/Vol] 7.6 mg/dL Low 8.8-10.0 [facility] Comment on above: Performed By: #### L AB19 ####Waredresser: PHILLY FRANCO ([phone])[facility])[address] [place] [address] Chloride [Moles/Vol] 96 mmol/L Low 98-107 [facility] Comment on above: Performed By: #### L [id number] ####Waredresser: PHILLY FRANCO ([phone])[facility])[address] [place] [address] CO2 [Moles/Vol] 32 mmol/L High 23-31 [facility] Comment on above: Performed By: #### L AB19 ####Waredresser: PHILLY FRANCO ([phone])[facility])[address] [place] [address] Creatinine [Mass/Vol] 3.73 mg/dL High 0.57-1.11 [facility] Comment on above: Performed By: #### L AB19 ####Waredresser: PHILLY FRANCO ([phone])[facility])[address] [place] [address] [place] GLOMERULAR FILTRATION RATE ML/MIN/1.73 SQ M.PREDICTED 12.2 mL/min/1.73m*2 Low >60.0 [facility] Comment on above: Result Comment: Calc ulation based on the Chronic Kidney Disease Epidemiology Collaboration (CKD-EPI) equation refit without adjustment for race Performed By: #### L AB19 ####Waredresser: PHILLY FRANCO ([phone])[facility] ([facility])[address] [place] [address] [place] Glucose [Mass/Vol] 79 mg/dL Low 82-115 [facility] Comment on above: Performed By: #### L AB19 ####Waredresser: PHILLY FRANCO ([phone])[facility])[address] [place] [address] [place] Phosphate [Mass/Vol] 1.7 mg/dL Low 2.3-4.7 [facility] Comment on above: Performed By: #### L AB19 ####Waredresser: PHILLY FRANCO ([phone])[facility])[address] [place] [address] [place] Potassium [Moles/Vol] 3.1 mmol/L Low 3.5-5.1 [facility] Comment on above: Result Comment: [facility] potassium values may be up to 0.5 mmol/L lower than serum values. Performed By: #### L AB19 ####Waredresser: PHILLY FRANCO ([phone])[facility] ([facility])[address] [place] [address] [place] Sodium [Moles/Vol] 136 mmol/L Normal 136-145 [facility] Comment on above: Performed By: #### L AB19 ####Waredresser: PHILLY FRANCO ([phone])[facility])[address] [place] [address] [place] Urea nitrogen [Mass/Vol] 19 mg/dL Normal 9-23 [facility] Comment on above: Performed By: #### L AB19 ####Waredresser: PHILLY FRANCO ([phone])[facility] ([facility])[address] [place] [address] XR Hip - left 3 [facility] Radiology Study observation (narrative) [facility] XR Hip - left 3 ViewsOrdered By: Honorio Grande on 12-09-2024 [facility] [employer] Work Phone: BLOOD TYPE AND SCREEN GELon 12-08-2024 ABO GROUPING O Normal [facility] Comment on above: Performed By: #### L [id number] ####Waredresser: PHILLY FRANCO ([phone])[facility] ([facility])[address] [place] [address] RH TYPE IN BLOOD Positive Normal [facility] Comment on above: Performed By: #### L [id number] ####Waredresser: PHILLY FRANCO ([phone])[facility] ([facility])[address] [place] [address] Blood type and Crossmatch pa kojo (Bld)on 12-08-2024 ABO group Nom (Bld) O [facility] Blood group antibody screen GEL Ql Negative [facility] [employer] D Ag Ql (RBC) Positive [facility] CBC W Auto Differential pane l (Bld)Ordered By: Rimma Galloway on 12-08-2024 Basophils (Bld) [#/Vol] 0.1 10*3/uL 0.0 - 0.2 10*3/uL [facility] Basophils/100 WBC (Bld) 0.8 % 0.0 - 2.0 % [facility] Eosinophils (Bld) [#/Vol] 0.1 10*3/uL 0.0 - 0.5 10*3/uL [facility] Eosinophils/100 WBC (Bld) 0.9 % 0.0 - 6.0 % [facility] Erythrocyte distribution width (RBC) [Ratio] 18.4 % High 11.5 - 15.0 % [facility] Hematocrit (Bld) [Volume fraction] 20.9 % Low 35.0 - 47.0 % [facility] Hemoglobin (Bld) [Mass/Vol] 6.9 g/dL Critically low 11.7 - 16.0 g/dL [facility] [employer] Immature granulocytes (Bld) [#/Vol] 0.1 10*3/uL High NINF - 0.1 10*3/uL [facility] [employer] Immature granulocytes/100 WBC (Bld) 0.4 % 0.0 - 2.0 % [facility] Interpretation and review of laboratory results Abnormal [facility] Lymphocytes (Bld) [#/Vol] 0.8 10*3/uL Low 1.0 - 4.3 10*3/uL [facility] Lymphocytes/100 WBC (Bld) 7.4 % Low 15.0 - 45.0 % [facility] MCH (RBC) [Entitic mass] 30.5 pg 26.0 - 34.0 pg [facility] MCHC (RBC) [Mass/Vol] 33 % 30.5 - 36.0 % [facility] MCV (RBC) [Entitic vol] 92.5 fL 77.0 - 99.0 fL [facility] [employer] Monocytes (Bld) [#/Vol] 0.6 10*3/uL 0.0 - 0.9 10*3/uL [facility] Monocytes/100 WBC (Bld) 4.9 % Low 5.0 - 13.0 % [facility] Neutrophils (Bld) [#/Vol] 9.6 10*3/uL High 1.8 - 7.5 10*3/uL [facility] Neutrophils/100 WBC (Bld) 85.6 % High 38.0 - 82.0 % [facility] Nucleated RBC/100 WBC (Bld) [Ratio] 0 % [facility] [employer] Platelet mean volume (Bld) [Entitic vol] 10.1 fL 9.0 - 12.7 fL [facility] [employer] Platelets (Bld) [#/Vol] 359 10*3/uL 140 - 440 10*3/uL [facility] RBC (Bld) [#/Vol] 2.26 10*6/uL Low 3.80 - 5.2 0 10*6/uL [facility] WBC (Bld) [#/Vol] 11.2 10*3/uL High 3.6 - 10.7 10*3/uL [facility] CBC WITH AUTO DIFFERENTIALon 12-08-2024 Basophils (Bld) [#/Vol] 0.1 10*3/uL Normal 0.0-0.2 [facility] Comment on above: Performed By: #### L [id number] ####Waredresser: PHILLY FRANCO ([phone])[facility])[address] [place] [address] Basophils/100 WBC (Bld) 0.8 % Normal 0.0-2.0 [facility] Comment on above: Performed By: #### L [id number] ####Waredresser: PHILLY FRANCO ([phone])[facility])[address] [place] [address] Eosinophils (Bld) [#/Vol] 0.1 10*3/uL Normal 0.0-0.5 [facility] Comment on above: Performed By: #### L [id number] ####Waredresser: PHILLY FRANCO ([phone])[facility])[address] [place] [address] Eosinophils/100 WBC (Bld) 0.9 % Normal 0.0-6.0 [facility] Comment on above: Performed By: #### L [id number] ####Waredresser: PHILLY FRANCO ([phone])[facility])[address] [place] [address] Erythrocyte distribution width (RBC) [Ratio] 18.4 % High 11.5-15.0 [facility] Comment on above: Performed By: #### L [id number] ####Waredresser: PHILLY FRANCO ([phone])[facility])[address] [place] [address] Hematocrit (Bld) [Volume fraction] 20.9 % Low 35.0-47.0 [facility] Comment on above: Performed By: #### L [id number] ####Waredresser: PHILLY FRANCO ([phone])[facility])[address] [place] [address] Hemoglobin (Bld) [Mass/Vol] 6.9 g/dL Critically low 11.7-16.0 [facility] Comment on above: Performed By: #### L [id number] ####Waredresser: PHILLY FRANCO ([phone])[facility])[address] [place] [address] IMMATURE GRANS % 0.4 % Normal 0.0-2.0 [facility] Comment on above: Performed By: #### L [id number] ####Waredresser: PHILLY FRANCO ([phone])[facility])[address] [place] [address] IMMATURE GRANS ABSOLUTE 0.1 10*3/uL High <0.1 [facility] Comment on above: Performed By: #### L [id number] ####Waredresser: PHILLY FRANCO ([phone])[address] Lymphocytes (Bld) [#/Vol] 0.8 10*3/uL Low 1.0-4.3 [facility] Comment on above: Performed By: #### L [id number] ####Waredresser: PHILLY FRANCO ([phone])[facility])[address] [place] [address] Lymphocytes/100 WBC (Bld) 7.4 % Low 15.0-45.0 [facility] Comment on above: Performed By: #### L [id number] ####Waredresser: PHILLY FRANCO ([phone])[facility])[address] [place] [address] MCH (RBC) [Entitic mass] 30.5 pg Normal 26.0-34.0 [facility] Comment on above: Performed By: #### L [id number] ####Waredresser: PHILLY FRANCO ([phone])[address] MCHC 33.0 % Normal 30.5-36.0 [facility] Comment on above: Performed By: #### L [id number] ####Waredresser: PHILLY FRANCO ([phone])[facility])[address] [place] [address] MCV (RBC) [Entitic vol] 92.5 fL Normal 77.0-99.0 [facility] Comment on above: Performed By: #### L [id number] ####Waredresser: PHILLY FRANCO ([phone])[facility] ([facility])[address] [place] [address] Monocytes (Bld) [#/Vol] 0.6 10*3/uL Normal 0.0-0.9 [facility] Comment on above: Performed By: #### L [id number] ####Waredresser: PHILLY FRANCO ([phone])[facility] ([facility])[address] [place] [address] Monocytes/100 WBC (Bld) 4.9 % Low 5.0-13.0 [facility] Comment on above: Performed By: #### L [id number] ####Waredresser: PHILLY FRANCO ([phone])[facility] ([facility])[address] [place] [address] NEUTROPHILS ABSOLUTE 9.6 10*3/uL High 1.8-7.5 [facility] Comment on above: Performed By: #### L [id number] ####Waredresser: PHILLY FRANCO ([phone])[facility] ([facility])[address] [place] [address] Neutrophils/100 WBC (Bld) 85.6 % High 38.0-82.0 [facility] Comment on above: Performed By: #### L [id number] ####Waredresser: PHILLY FRANCO ([phone])[facility] ([facility])[address] [place] [address] NRBC 0.0 /100 WBCs Normal 0.0-2.0 [facility] Comment on above: Performed By: #### L [id number] ####Waredresser: PHILLY FRANCO ([phone])[facility] ([facility])[address] [place] [address] Platelet mean volume (Bld) [Entitic vol] 10.1 fL Normal 9.0-12.7 [facility] Comment on above: Performed By: #### L [id number] ####Waredresser: PHILLY FRANCO ([phone])[facility])[address] [place] [address] Platelets (Bld) [#/Vol] 359 10*3/uL Normal 140-440 [facility] Comment on above: Performed By: #### L [id number] ####Waredresser: PHILLY FRANCO ([phone])[facility] ([facility])[address] [place] [address] RBC (Bld) [#/Vol] 2.26 10*6/uL Low 3.80-5.20 [facility] Comment on above: Performed By: #### L [id number] ####Waredresser: PHILLY FRANCO ([phone])[facility] ([facility])[address] [place] [address] WBC (Bld) [#/Vol] 11.2 10*3/uL High 3.6-10.7 [facility] Comment on above: Performed By: #### L [id number] ####Waredresser: PHILLY FRANCO ([phone])[facility] ([facility])[address] [place] [address] COMPREHENSIVE METABOLIC PANE Fam 12-08-2024 Albumin [Mass/Vol] 1.6 g/dL Low 3.4-4.8 [facility] Comment on above: Performed By: #### L [id number] ####Waredresser: PHILLY FRANCO ([phone])[facility] ([facility])[address] [place] [address] ALP [Catalytic activity/Vol] 166 U/L High 40-150 [facility] Comment on above: Performed By: #### L [id number] ####Waredresser: PHILLY FRANCO ([phone])[facility])[address] [place] [address] ALT [Catalytic activity/Vol] 14 U/L Normal <30 [facility] Comment on above: Performed By: #### L [id number] ####Waredresser: PHILLY FRANCO ([phone])[facility] ([facility])[address] Anion gap [Moles/Vol] 11 mmol/L Normal 3-13 [facility] Comment on above: Performed By: #### L [id number] ####Waredresser: PHILLY FRANCO ([phone])[facility] ([facility] [place] [address] [place] AST [Catalytic activity/Vol] 46 U/L High <34 [facility] Comment on above: Performed By: #### L [id number] ####Waredresser: PHILLY FRANCO ([phone])[facility] ([facility])[address] [place] [address] Bilirubin [Mass/Vol] 0.4 mg/dL Normal <1.2 [facility] Comment on above: Performed By: #### L [id number] ####Waredresser: PHILLY FRANCO ([phone])[facility] [place] [address] Calcium [Mass/Vol] 8.1 mg/dL Low 8.8-10.0 [facility] Comment on above: Performed By: #### L [id number] ####Waredresser: PHILLY FRANCO ([phone])[facility])[address] [place] [address] [place] Chloride [Moles/Vol] 94 mmol/L Low 98-107 [facility] Comment on above: Performed By: #### L [id number] ####Waredresser: PHILLY FRANCO ([phone])[facility] [place] [address] [place] CO2 [Moles/Vol] 30 mmol/L Normal 23-31 [facility] Comment on above: Performed By: #### L [id number] ####Waredresser: PHILLY FRANCO ([phone])[facility] [place] [address] [place] Creatinine [Mass/Vol] 3.05 mg/dL High 0.57-1.11 [facility] Comment on above: Performed By: #### L AB17 ####Waredresser: PHILLY FRANCO ([phone])[facility])[address] [place] [address] GLOMERULAR FILTRATION RATE ML/MIN/1.73 SQ M.PREDICTED 15.5 mL/min/1.73m*2 Low >60.0 [facility] Comment on above: Result Comment: Calc ulation based on the Chronic Kidney Disease Epidemiology Collaboration (CKD-EPI) equation refit without adjustment for race Performed By: #### L [id number] ####Waredresser: PHILLY FRANCO ([phone])[facility] ([facility])[address] [place] [address] Glucose [Mass/Vol] 101 mg/dL Normal 82-115 [facility] Comment on above: Performed By: #### L AB17 ####Waredresser: PHILLY FRANCO ([phone])[facility])[address] [place] [address] Potassium [Moles/Vol] 2.6 mmol/L Critically low 3.5-5.1 [facility] Comment on above: Result Comment: [facility] potassium values may be up to 0.5 mmol/L lower than serum values. Performed By: #### L AB17 ####Waredresser: PHILLY FRANCO ([phone])[facility] ([facility])[address] [place] [address] Protein [Mass/Vol] 6.4 g/dL Normal 6.4-8.3 [facility] Comment on above: Performed By: #### L [id number] ####Waredresser: PHILLY FRANCO ([phone])[facility])[address] [place] [address] [place] Sodium [Moles/Vol] 135 mmol/L Low 136-145 [facility] Comment on above: Performed By: #### L [id number] ####Waredresser: PHILLY FRANCO ([phone])[facility])[address] [place] [address] [place] Urea nitrogen [Mass/Vol] 17 mg/dL Normal 9- [facility] Comment on above: Performed By: #### L [id number] ####Waredresser: PHILLY FRANCO ([phone])[facility] ([facility] CERVICAL SPINE WO IV CONT RASTon 12-08-2024 CT CERVICAL SPINE WO IV CONTRAST Normal [facility] CT HEAD WO IV CONTRASTon CT HEAD WO IV CONTRAST Normal [facility] Comprehensive metabolic 1998 panelOrdered By: Brenda Means on 12-08-2024 Albumin [Mass/Vol] 1.6 g/dL Low 3.4 - 4.8 g/dL [facility] ALP [Catalytic activity/Vol] 166 U/L High 40 - 150 U/L [facility] ALT [Catalytic activity/Vol] 14 U/L NINF - 30 U/L [facility] Anion gap [Moles/Vol] 11 mmol/L 3 - 13 mmol/L [facility] AST [Catalytic activity/Vol] 46 U/L High NINF - 34 U/L [facility] Bilirubin [Mass/Vol] 0.4 mg/dL NINF - 1.2 mg/dL [facility] Calcium [Mass/Vol] 8.1 mg/dL Low 8.8 - 10. 0 mg/dL [facility] Chloride [Moles/Vol] 94 mmol/L Low 98 - 10 7 mmol/L [facility] CO2 [Moles/Vol] 30 mmol/L 23 - 31 mmol/L [facility] Creatinine [Mass/Vol] 3.05 mg/dL High 0.57 - 1.11 mg/dL [facility] GFR/1.73 sq M.predicted (S/P/Bld) [Vol rate/Area] 15.5 mL/min Low - PINF [facility] Glucose [Mass/Vol] 101 mg/dL 82 - 115 mg/dL [facility] Interpretation and review of laboratory results Abnormal [facility] Potassium [Moles/Vol] 2.6 mmol/L Critically low 3.5 - 5.1 mmol/L [facility] Protein [Mass/Vol] 6.4 g/dL 6.4 - 8.3 g/dL [facility] Sodium [Moles/Vol] 135 mmol/L Low 136 - 145 mmol/L [facility] Urea nitrogen [Mass/Vol] 17 mg/dL 9 - 23 mg/dL [facility] ED Nursing Noteon 12-08-2024 ED Nursing Note MRI screening completed at this time. Normal [facility] ED Provider Noteon ED Provider Note Normal [facility] No Panel Informationon 12-08 [facility] RADIOLOGY [facility] Radiology Study observation (narrative) [facility] [employer] No Panel InformationOrdered By: Norman Malin on 12-08-2024 Yu Rong Phone: No Panel InformationOrdered By: Mason Duran on 12-06-2024 Left antecubital vein depth 2.4 cm Yu Rong Phone: [phone] Left Antecutibal Vein Diam 1.1 mm Yu Rong Phone: Left Axillary Artery Diameter 0.77 cm Yu Rong Phone: [phone] Left Axillary Vein Diameter 5.3 mm Yu Rong Phone: Left Brachial A dist PSV 54.3 cm/s Yu Rong Phone: Left brachial artery distal diameter 0.57 cm Yu Rong Phone: Left Brachial Vein 1 Diam 1.9 mm Yu Rong Phone: [phone] Left Cephalic Vein Lower Arm Dist Diam 0.8 mm Yu Rong Phone: [phone] Left Cephalic Vein Lower Arm Mid Diam 1.1 mm Yu Rong Phone: [phone] Left Cephalic Vein Lower Arm Prox Diam 0.8 mm Yu Rong Phone: [phone] Left Cephalic Vein Upper Arm Dist Diam 1.2 mm Yu Rong Phone: Left forearm cephalic vein distal depth 1.93 cm Yu Rong Phone: Left forearm cephalic vein mid depth 2.11 cm Yu Rong Phone: Left forearm cephalic vein proximal depth 1.93 cm Yu Rong Phone: Left Mid Ax A PSV 52.2 [...] Right Brachial Vein 2 Diam 2.6 mm [facility] Work Phone: Right Cephalic Vein Upper Arm Dist Diam 0.9 mm [facility] Work Phone: Right Cephalic Vein Upper Arm Mid Diam 0.5 mm [facility] Work Phone: Right Radial A dist PSV 76 cm/s S [facility] [employer] Work Phone: Right Radial A mid PSV 82.1 cm/s [facility] Work Phone: Right Radial A prox PSV 88.3 cm/s S [facility] [employer] Work Phone: Right radial artery distal diameter 0.27 cm [facility] [employer] Work Phone: Right radial artery mid diameter 0.23 cm [facility] [employer] Work Phone: Right radial artery proximal diameter 0.23 cm [facility] [employer] Work Phone: Right Subclavian Vein Diameter 7.6 mm [facility] [employer] Work Phone: Right upper cephalic vein distal depth 2.2 cm [facility] [employer] Work Phone: Right upper cephalic vein mid depth 2.15 cm [facility] [employer] Work Phone: No Panel Informationon 12-06 Chronic [...] CPACS Progress Noteon 12-06-2024 Progress Note Normal [facility] CBC-Complete Blood Cnt No Di ffon 12-05-2024 Erythrocyte distribution width (RBC) [Ratio] 18.8 % High 11.6-14.6 [facility] Comment on above: Order Comment: 408.2 Performed By: #### L 100.0500, L100.4500 #### [facility] [address] [place], [address] Hematocrit (Bld) [Volume fraction] 22.4 % Low 37-47 [facility] Comment on above: Order Comment: 408.2 Performed By: #### L 100.0500, L100.4500 #### [facility] [address] [place], [address] Hemoglobin (Bld) [Mass/Vol] 7.2 g/dL Low 12.0-15.0 [facility] Comment on above: Order Comment: 408.2 Performed By: #### L 100.0500, L100.4500 #### [facility] [facility] [address] [place], [address] MCH (RBC) [Entitic mass] 30.4 pg Normal 27.0-32.0 [facility] Comment on above: Order Comment: 408.2 Performed By: #### L 100.0500, L100.4500 #### [facility] [address] [place], [address] MCHC (RBC) [Mass/Vol] 32.1 g/dL Normal 32-36 [facility] Comment on above: Order Comment: 408.2 Performed By: #### L 100.0500, L100.4500 #### [facility] [address] [place], [address] MCV (RBC) [Entitic vol] 94.5 fL Normal 81-99 [facility] Comment on above: Order Comment: 408.2 Performed By: #### L 100.0500, L100.4500 #### [facility] [address] [place], [address] Platelet mean volume (Bld) [Entitic vol] 10.7 fL Normal 6.2-12.0 [facility] Comment on above: Order Comment: 408.2 Performed By: #### L 100.0500, L100.4500 #### [facility] [address] [place], [address] Platelets (Bld) [#/Vol] 395 10*3/uL Normal 150-450 [facility] Comment on above: Order Comment: 408.2 Performed By: #### L 100.0500, L100.4500 #### [facility] [address] [place], [address] RBC (Bld) [#/Vol] 2.37 10*6/uL Low 4.2-5.4 [facility] Comment on above: Order Comment: 408.2 Performed By: #### L 100.0500, L100.4500 #### [facility] [address] [place], [address] RDW SD 65.1 fl High 35.1-43.9 [facility] Comment on above: Order Comment: 408.2 Performed By: #### L 100.0500, L100.4500 #### [facility] [address] [place], [address] WBC (Bld) [#/Vol] 8.5 10*3/uL Normal 4.4-11.0 [facility] Comment on above: Order Comment: 408.2 Performed By: #### L 100.0500, L100.4500 #### [facility] [address] [place], [address] Differential Commenton 12-05 SMEAR COMMENT COMMENT Normal [facility] Comment on above: Order Comment: 408.2 Result Comment: 2+ A NISO. Performed By: #### L 100.0500, L100.4500 #### [facility] [address] [place], [address] CBC-Complete Blood Cnt No Di ffon 12-01-2024 HCT Normal 37-47 [facility] Comment on above: Order Comment: 407-2 Result Comment: This specimen has been REJECTED due to Laboratory criteria: Clotted. TIANNA RUIZ has been notified of need of recollection. 12/01/24 0856 Aaliyah Huber Performed By: #### L 400.0001, L100.0500, M100.2200, L500.4050 #### [facility] [address] [place], [address] HGB Normal 12.0-15.0 [facility] Comment on above: Order Comment: 407-2 Result Comment: This specimen has been REJECTED due to Laboratory criteria: Clotted. TIANNA RUIZ has been notified of need of recollection. 12/01/24 0856 Aaliyah Huber Performed By: #### L 400.0001, L100.0500, M100.2200, L500.4050 #### [facility] [address] [place], [address] MCH Normal 27.0-32.0 [facility] Comment on above: Order Comment: 407-2 Result Comment: This specimen has been REJECTED due to Laboratory criteria: Clotted. TIANNA RUIZ has been notified of need of recollection. 12/01/24 0856 Aaliyah Huber Performed By: #### L 400.0001, L100.0500, M100.2200, L500.4050 #### [facility] [address] [place], [address] MCHC Normal 32-36 [facility] Comment on above: Order Comment: 407-2 Result Comment: This specimen has been REJECTED due to Laboratory criteria: Clotted. TIANNA RUIZ has been notified of need of recollection. 12/01/24 0856 Aaliyah Huber Performed By: #### L 400.0001, L100.0500, M100.2200, L500.4050 #### [facility] [address] [place], [address] MCV Normal 81-99 [facility] Comment on above: Order Comment: 407-2 Result Comment: This specimen has been REJECTED due to Laboratory criteria: Clotted. TIANNA RUIZ has been notified of need of recollection. 12/01/24 0856 Aaliyah Huber Performed By: #### L 400.0001, L100.0500, M100.2200, L500.4050 #### [facility] [address] [place], [address] PLT Normal 150-450 [facility] Comment on above: Order Comment: 407-2 Result Comment: This specimen has been REJECTED due to Laboratory criteria: Clotted. TIANNA RUIZ has been notified of need of recollection. 12/01/24 0856 Aaliyah Huber Performed By: #### L 400.0001, L100.0500, M100.2200, L500.4050 #### [facility] [address] [place], [address] RBC Normal 4.2-5.4 [facility] Comment on above: Order Comment: 407-2 Result Comment: This specimen has been REJECTED due to Laboratory criteria: Clotted. TIANNA RUIZ has been notified of need of recollection. 12/01/24 0856 Aaliyah Huber Performed By: #### L 400.0001, L100.0500, M100.2200, L500.4050 #### [facility] [address] [place], [address] RDW CV Normal 11.6-14.6 [facility] Comment on above: Order Comment: 407-2 Result Comment: This specimen has been REJECTED due to Laboratory criteria: Clotted. TIANNA RUIZ has been notified of need of recollection. 12/01/24 0856 Aaliyah Huber Performed By: #### L 400.0001, L100.0500, M100.2200, L500.4050 #### [facility] [address] [place], [address] RDW SD Normal 35.1-43.9 [facility] Comment on above: Order Comment: 407-2 Result Comment: This specimen has been REJECTED due to Laboratory criteria: Clotted. TIANNA RUIZ has been notified of need of recollection. 12/01/24 0856 Aaliyah Huber Performed By: #### L 400.0001, L100.0500, M100.2200, L500.4050 #### [facility] [address] [place], [address] WBC Normal 4.4-11.0 [facility] Comment on above: Order Comment: 407-2 Result Comment: This specimen has been REJECTED due to Laboratory criteria: Clotted. TIANNA RUIZ has been notified of need of recollection. 12/01/24 0856 Aaliyah Huber Performed By: #### L 400.0001, L100.0500, M100.2200, L500.4050 #### [facility] [address] [place], [address] CBC-Complete Blood Cnt No Di ffon 11-30-2024 Erythrocyte distribution width (RBC) [Ratio] 18.5 % High 11.6-14.6 [facility] Comment on above: Order Comment: 408.2 Performed By: #### L 100.0500 #### [facility] [address] [place], [address] Hematocrit (Bld) [Volume fraction] 21.7 % Low 37-47 [facility] Comment on above: Order Comment: 408.2 Performed By: #### L 100.0500 #### [facility] [address] [place], [address] Hemoglobin (Bld) [Mass/Vol] 6.9 g/dL Low 12.0-15.0 [facility] Comment on above: Order Comment: 408.2 Performed By: #### L 100.0500 #### [facility] [address] [place], [address] MCH (RBC) [Entitic mass] 29.9 pg Normal 27.0-32.0 [facility] Comment on above: Order Comment: 408.2 Performed By: #### L 100.0500 #### [facility] [address] [place], [address] MCHC (RBC) [Mass/Vol] 31.8 g/dL Low 32-36 [facility] Comment on above: Order Comment: 408.2 Performed By: #### L 100.0500 #### [facility] [address] [place], [address] MCV (RBC) [Entitic vol] 93.9 fL Normal 81-99 [facility] Comment on above: Order Comment: 408.2 Performed By: #### L 100.0500 #### [facility] [address], [address] Platelet mean volume (Bld) [Entitic vol] 10.5 fL Normal 6.2-12.0 [facility] Comment on above: Order Comment: 408.2 Performed By: #### L 100.0500 #### [facility] [address] [place], [address] Platelets (Bld) [#/Vol] 342 10*3/uL Normal 150-450 [facility] Comment on above: Order Comment: 408.2 Performed By: #### L 100.0500 #### [facility] [address] [place], [address] RBC (Bld) [#/Vol] 2.31 10*6/uL Low 4.2-5.4 [facility] Comment on above: Order Comment: 408.2 Performed By: #### L 100.0500 #### [facility] [address] [place], [address] RDW SD 63.3 fl High 35.1-43.9 [facility] Comment on above: Order Comment: 408.2 Performed By: #### L 100.0500 #### [facility] [address] [place], [address] WBC (Bld) [#/Vol] 7.0 10*3/uL Normal 4.4-11.0 [facility] Comment on above: Order Comment: 408.2 Performed By: #### L 100.0500 #### [facility] [address] [place], [address] Progress Noteon 11-27-2024 Progress Note Normal [facility] KEPPRA (LEVETIRACETAM)on KEPPRA 18.7 ug/mL Normal 10.0-40.0 [facility] Comment on above: Order Comment: 408-2 Result Comment: Perf ormed at: BN - [facility] [address], [place], [place] [id number] [employer]inking 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: Scott Little MD, Phone: [phone] Performed By: #### L 3310.0000 #### [facility] [address] [place], [address] BASIC METABOLIC PANELon 08-2 0-2024 Anion gap [Moles/Vol] 13 mmol/L Normal 3-13 [facility] Comment on above: Performed By: #### L AB15 ####Waredresser: DEANN CURRAN ([phone])[facility])[address] Calcium [Mass/Vol] 8.4 mg/dL Low 8.8-10.0 [facility] Comment on above: Performed By: #### L AB15 ####Waredresser: DEANN CURRAN ([phone])[facility] ([facility])[address] Chloride [Moles/Vol] 94 mmol/L Low 98-107 [facility] Comment on above: Performed By: #### L AB15 ####Waredresser: DEANN CURRAN ([phone])[facility])[address] CO2 [Moles/Vol] 27 mmol/L Normal 23-31 [facility] Comment on above: Performed By: #### L AB15 ####Waredresser: DEANN CURRAN ([phone])[facility] ([facility])[address] [place] [address] [place] Creatinine [Mass/Vol] 2.28 mg/dL High 0.57-1.11 [facility] Comment on above: Performed By: #### L AB15 ####Waredresser: DEANN CURRAN ([phone])[facility])[address] [place] [address] [place] GLOMERULAR FILTRATION RATE ML/MIN/1.73 SQ M.PREDICTED 22.0 mL/min/1.73m*2 Low >60.0 [facility] Comment on above: Result Comment: Calc ulation based on the Chronic Kidney Disease Epidemiology Collaboration (CKD-EPI) equation refit without adjustment for race Performed By: #### L AB15 ####Waredresser: DEANN CURRAN ([phone])[facility] ([facility])[address] Glucose [Mass/Vol] 81 mg/dL Low 82-115 [facility] Comment on above: Performed By: #### L AB15 ####Waredresser: DEANN CURRAN ([phone])[facility] ([facility])[address] Potassium [Moles/Vol] 3.1 mmol/L Low 3.5-5.1 [facility] Comment on above: Result Comment: [facility] potassium values may be up to 0.5 mmol/L lower than serum values. Performed By: #### L AB15 ####Waredresser: DEANN CURRAN ([phone])[facility] ([facility])[address] Sodium [Moles/Vol] 134 mmol/L Low 136-145 [facility] Comment on above: Performed By: #### L AB15 ####Waredresser: DEANN CURRAN ([phone])[facility] ([facility])[address] Urea nitrogen [Mass/Vol] 10 mg/dL Normal - [facility] Comment on above: Performed By: #### L AB15 ####Waredresser: DEANN CURRAN ([phone])[facility] ([facility])[address] BLOOD TYPE AND SCREEN GELon 11-22-2024 ABO GROUPING O Normal [facility] Comment on above: Performed By: #### L AB276 ####Waredresser: DEANN CURRAN ([phone])[facility] ([facility])[address] [place] [address] [facility] RH TYPE IN BLOOD Positive Normal [facility] Comment on above: Performed By: #### L AB276 ####Waredresser: DEANN CURRAN ([phone])[facility] ([facility])[address] [place] [address] [facility] Basic metabolic 1998 panelon 11-22-2024 Anion gap [Moles/Vol] 13 mmol/L 3 - 13 mmol/L [facility] Calcium [Mass/Vol] 8.4 mg/dL Low 8.8 - 10. 0 mg/dL [facility] Chloride [Moles/Vol] 94 mmol/L Low 98 - 10 7 mmol/L [facility] CO2 [Moles/Vol] 27 mmol/L 23 - 31 mmol/L [facility] Creatinine [Mass/Vol] 2.28 mg/dL High 0.57 - 1.11 mg/dL [facility] GFR/1.73 sq M.predicted (S/P/Bld) [Vol rate/Area] 22 mL/min Low - PINF [facility] Comment on above: Calculation based on the Chronic Kidney Disease Epidemiology Collaboration (CKD-EPI) equation refit without adjustment for race Glucose [Mass/Vol] 81 mg/dL Low 82 - 115 mg/dL [facility] Interpretation and review of laboratory results Abnormal [facility] Potassium [Moles/Vol] 3.1 mmol/L Low 3.5 - 5.1 mmol/L [facility] Comment on above: Plasma potassium bhaskar ues may be up to 0.5 mmol/L lower than serum values. Sodium [Moles/Vol] 134 mmol/L Low 136 - 145 mmol/L [facility] Urea nitrogen [Mass/Vol] 10 mg/dL 9 - 23 mg/dL [facility] Blood type and Crossmatch pa kojo (Bld)on 11-22-2024 ABO group Nom (Bld) O [facility] Blood group antibody screen GEL Ql Negative [facility] D Ag Ql (RBC) Positive [facility] CBC W Auto Differential pane l (Bld)on 11-22-2024 Basophils (Bld) [#/Vol] 0.2 10*3/uL 0.0 - 0.2 10*3/uL [facility] Basophils/100 WBC (Bld) 2.3 % High 0.0 - 2.0 % [facility] Eosinophils (Bld) [#/Vol] 0.4 10*3/uL 0.0 - 0.5 10*3/uL [facility] Eosinophils/100 WBC (Bld) 4.2 % 0.0 - 6.0 % [facility] Erythrocyte distribution width (RBC) [Ratio] 17.8 % High 11.5 - 15.0 % [facility] Hematocrit (Bld) [Volume fraction] 23.9 % Low 35.0 - 47.0 % [facility] Hemoglobin (Bld) [Mass/Vol] 7.8 g/dL Low 11.7 - 16.0 g/dL [facility] Immature granulocytes (Bld) [#/Vol] 0 10*3/uL NINF - 0.1 10*3/uL [facility] Immature granulocytes/100 WBC (Bld) 0.5 % 0.0 - 2.0 % [facility] Interpretation and review of laboratory results Abnormal [facility] IPF 3 [facility] Lymphocytes (Bld) [#/Vol] 1.6 10*3/uL 1.0 - 4.3 10*3/uL [facility] Lymphocytes/100 WBC (Bld) 18.4 % 15.0 - 45.0 % [facility] MCH (RBC) [Entitic mass] 29.8 pg 26.0 - 34.0 pg [facility] MCHC (RBC) [Mass/Vol] 32.6 % 30.5 - 36.0 % [facility] MCV (RBC) [Entitic vol] 91.2 fL 77.0 - 99.0 fL [facility] Monocytes (Bld) [#/Vol] 0.8 10*3/uL 0.0 - 0.9 10*3/uL [facility] Monocytes/100 WBC (Bld) 9.3 % 5.0 - 13.0 % [facility] Neutrophils (Bld) [#/Vol] 5.6 10*3/uL 1.8 - 7.5 10*3/uL [facility] Neutrophils/100 WBC (Bld) 65.3 % 38.0 - 82.0 % [facility] Nucleated RBC/100 WBC (Bld) [Ratio] 0 % [facility] Platelet mean volume (Bld) [Entitic vol] 10.3 fL 9.0 - 12.7 fL [facility] Platelets (Bld) [#/Vol] 575 10*3/uL High 140 - 440 10*3/uL [facility] RBC (Bld) [#/Vol] 2.62 10*6/uL Low 3.80 - 5.2 0 10*6/uL [facility] WBC (Bld) [#/Vol] 8.6 10*3/uL 3.6 - 10.7 10*3/uL [facility] CBC WITH AUTO DIFFERENTIALon 11-22-2024 Basophils (Bld) [#/Vol] 0.2 10*3/uL Normal 0.0-0.2 [facility] Comment on above: Performed By: #### L [id number] ####Waredresser: DEANN CURRAN ([phone])[facility] ([facility])[address] [place] [address] Basophils/100 WBC (Bld) 2.3 % High 0.0-2.0 [facility] Comment on above: Performed By: #### L [id number] ####Waredresser: DEANN CURRAN ([phone])[facility] ([facility])[address] [place] [address] Eosinophils (Bld) [#/Vol] 0.4 10*3/uL Normal 0.0-0.5 [facility] Comment on above: Performed By: #### L [id number] ####Waredresser: DAENN CURRAN ([phone])[facility] ([facility])[address] [place] [address] [place] Eosinophils/100 WBC (Bld) 4.2 % Normal 0.0-6.0 [facility] Comment on above: Performed By: #### L [id number] ####Waredresser: DEANN CURRAN ([phone])[facility] ([facility])[address] Erythrocyte distribution width (RBC) [Ratio] 17.8 % High 11.5-15.0 [facility] Comment on above: Performed By: #### L [id number] ####Waredresser: DEANN CURRAN ([phone])[facility] ([facility])[address] [place] [address] Hematocrit (Bld) [Volume fraction] 23.9 % Low 35.0-47.0 [facility] Comment on above: Performed By: #### L [id number] ####Waredresser: DEANN CURRAN ([phone])[facility] ([facility])[address] [place] [address] Hemoglobin (Bld) [Mass/Vol] 7.8 g/dL Low 11.7-16.0 [facility] Comment on above: Performed By: #### L [id number] ####Waredresser: DEANN CURRAN ([phone])[facility] ([facility])[address] [place] [address] IMMATURE GRANS % 0.5 % Normal 0.0-2.0 [facility] Comment on above: Performed By: #### L [id number] ####Waredresser: DEANN CURRAN ([phone])[facility] ([facility])[address] [place] [address] IMMATURE GRANS ABSOLUTE 0.0 10*3/uL Normal <0.1 [facility] Comment on above: Performed By: #### L [id number] ####Waredresser: DEANN CURRAN ([phone])[facility] ([facility])[address] [place] [address] IPF 3 Normal [facility] Comment on above: Performed By: #### L [id number] ####Waredresser: DEANN CURRAN ([phone])[facility] ([facility])[address] [place] [address] Lymphocytes (Bld) [#/Vol] 1.6 10*3/uL Normal 1.0-4.3 [facility] Comment on above: Performed By: #### L [id number] ####Waredresser: DEANN [phone])[facility])[address] Lymphocytes/100 WBC (Bld) 18.4 % Normal 15.0-45.0 [facility] Comment on above: Performed By: #### L [id number] ####Waredresser: DEANN CURRAN ([phone])[facility] ([facility])[address] MCH (RBC) [Entitic mass] 29.8 pg Normal 26.0-34.0 [facility] Comment on above: Performed By: #### L [id number] ####Waredresser: DEANN CURRAN ([phone])[facility] ([facility])[address] [place] [address] MCHC 32.6 % Normal 30.5-36.0 [facility] Comment on above: Performed By: #### L [id number] ####Waredresser: DEANN CURRAN ([phone])[facility] ([facility])[address] [place] [address] MCV (RBC) [Entitic vol] 91.2 fL Normal 77.0-99.0 [facility] Comment on above: Performed By: #### L [id number] ####Waredresser: DEANN CURRAN ([phone])[facility] ([facility])[address] [place] [address] Monocytes (Bld) [#/Vol] 0.8 10*3/uL Normal 0.0-0.9 [facility] Comment on above: Performed By: #### L [id number] ####Waredresser: DEANN CURRAN ([phone])[facility] ([facility])[address] Monocytes/100 WBC (Bld) 9.3 % Normal 5.0-13.0 [facility] Comment on above: Performed By: #### L [id number] ####Waredresser: DEANN CURRAN ([phone])[facility] ([facility])[address] NEUTROPHILS ABSOLUTE 5.6 10*3/uL Normal 1.8-7.5 [facility] Comment on above: Performed By: #### L [id number] ####Waredresser: DEANN CURRAN ([phone])[facility] ([facility])[address] Neutrophils/100 WBC (Bld) 65.3 % Normal 38.0-82.0 [facility] Comment on above: Performed By: #### L [id number] ####Waredresser: DEANN CURRAN ([phone])[facility] ([facility])[address] NRBC 0.0 /100 WBCs Normal 0.0-2.0 [facility] Comment on above: Performed By: #### L [id number] ####Waredresser: DEANN CURRAN ([phone])[facility] ([facility])[address] Platelet mean volume (Bld) [Entitic vol] 10.3 fL Normal 9.0-12.7 [facility] Comment on above: Performed By: #### L [id number] ####Waredresser: DEANN CURRAN ([phone])[facility] ([facility])[address] [place] [address] [place] Platelets (Bld) [#/Vol] 575 10*3/uL High 140-440 [facility] Comment on above: Performed By: #### L [id number] ####Waredresser: DEANN CURRNA ([phone])[facility] ([facility])[address] [place] [address] [place] RBC (Bld) [#/Vol] 2.62 10*6/uL Low 3.80-5.20 [facility] Comment on above: Performed By: #### L [id number] ####Waredresser: DAENN CURRAN ([phone])[facility] ([facility])[address] WBC (Bld) [#/Vol] 8.6 10*3/uL Normal 3.6-10.7 [facility] Comment on above: Performed By: #### L [id number] ####Waredresser: DEANN CURRAN ([phone])[facility]ATION[facility] ([facility])[address] ED Nursing Noteon 11-22-2024 ED Nursing Note Called [facility] [phone]. Spoke with CYNTHIA Perry. Advised pt sent in from dialysis for low hgb of 6.5, [facility] ED hgb 7.8. pt stable and will be sent back. Normal [facility] ED Provider Noteon ED Provider Note Normal [facility] Progress Noteon 11-16-2024 Progress Note [facility] [id number] 11-15-2024 [id number] Fci/SNF - N [address] [id number] Patient/Family Choice [facility] [phone] [facility] [id number] MAR & Discharge med list transmitted to [facility] via [facility] per TCC request. Electronically signed by JASPREET Verdin [facility] [id number] [facility] Nursing Noteon 11-15-2024 Nursing Note Report called to david dunn at [facility]. All questions answered. supervisor logging time scheduled for 1230. Normal [facility] Progress Noteon 11-15-2024 Progress Note [facility] Consulton 11-14-2024 Consult [facility] [id number] 11-13-2024 [id number] [facility] [id number] Patient is from a SN F. 30 day readmission is not warranted. [facility] BASIC METABOLIC PANELon 11-03 Anion gap [Moles/Vol] 11 mmol/L Normal 3-13 [facility] Comment on above: Performed By: #### L [id number] ####Waredresser: PHILLY FRANCO ([phone])[facility] ([facility])[address] [place] [address] Calcium [Mass/Vol] 7.6 mg/dL Low 8.8-10.0 [facility] Comment on above: Performed By: #### L [id number] ####Waredresser: PHILLY FRANCO ([phone])[facility] ([facility])[address] [place] [address] Chloride [Moles/Vol] 103 mmol/L Normal 98-107 [facility] Comment on above: Performed By: #### L AB15 ####Waredresser: PHILLY FRANCO ([phone])[facility] ([facility])[address] [place] [address] CO2 [Moles/Vol] 23 mmol/L Normal 23-31 [facility] Comment on above: Performed By: #### L [id number] ####Waredresser: PHILLY FRANCO ([phone])[facility] ([facility])[address] [place] [address] Creatinine [Mass/Vol] 3.51 mg/dL High 0.57-1.11 [facility] Comment on above: Performed By: #### L AB15 ####Waredresser: PHILLY FRANCO ([phone])[facility] ([facility])[address] [place] [address] [place] GLOMERULAR FILTRATION RATE ML/MIN/1.73 SQ M.PREDICTED 13.1 mL/min/1.73m*2 Low >60.0 [facility] Comment on above: Result Comment: Calc ulation based on the Chronic Kidney Disease Epidemiology Collaboration (CKD-EPI) equation refit without adjustment for race Performed By: #### L [id number] ####Waredresser: PHILLY FRANCO ([phone])[facility] ([facility])[address] [place] [address] Glucose [Mass/Vol] 62 mg/dL Low 82-115 [facility] Comment on above: Performed By: #### L AB15 ####Waredresser: PHILLY FRANCO ([phone])[facility] ([facility])[address] [place] [address] Potassium [Moles/Vol] 4.0 mmol/L Normal 3.5-5.1 [facility] Comment on above: Result Comment: [facility] potassium values may be up to 0.5 mmol/L lower than serum values. Performed By: #### L AB15 ####Waredresser: PHILLY FRANCO ([phone])[facility] ([facility])[address] [place] [address] Sodium [Moles/Vol] 137 mmol/L Normal 136-145 [facility] Comment on above: Performed By: #### L AB15 ####Waredresser: PHILLY FRANCO ([phone])[facility] ([facility])[address] [place] [address] Urea nitrogen [Mass/Vol] 16 mg/dL Normal 9-23 [facility] Comment on above: Performed By: #### L [id number] ####Waredresser: PHILLY FRANCO ([phone])[facility])[address] [place] [address] Basic metabolic 1998 panelon 11-13-2024 Anion gap [Moles/Vol] 11 mmol/L 3 - 13 mmol/L [facility] Calcium [Mass/Vol] 7.6 mg/dL Low 8.8 - 10. 0 mg/dL [facility] Chloride [Moles/Vol] 103 mmol/L 98 - 10 7 mmol/L [facility] CO2 [Moles/Vol] 23 mmol/L 23 - 31 mmol/L [facility] Creatinine [Mass/Vol] 3.51 mg/dL High 0.57 - 1.11 mg/dL [facility] GFR/1.73 sq M.predicted (S/P/Bld) [Vol rate/Area] 13.1 mL/min Low - PINF [facility] Comment on above: Calculation based on the Chronic Kidney Disease Epidemiology Collaboration (CKD-EPI) equation refit without adjustment for race Glucose [Mass/Vol] 62 mg/dL Low 82 - 115 mg/dL [facility] Interpretation and review of laboratory results Abnormal [facility] Potassium [Moles/Vol] 4 mmol/L 3.5 - 5.1 mmol/L [facility] Comment on above: Plasma potassium bhaskar ues may be up to 0.5 mmol/L lower than serum values. Sodium [Moles/Vol] 137 mmol/L 136 - 145 mmol/L [facility] Urea nitrogen [Mass/Vol] 16 mg/dL 9 - 23 mg/dL [facility] CBC W Auto Differential pane l (Bld)Ordered By: Andre Ervin on 11-13-2024 Basophils (Bld) [#/Vol] 0.1 10*3/uL 0.0 - 0.2 10*3/uL [facility] Basophils/100 WBC (Bld) 1.3 % 0.0 - 2.0 % [facility] Eosinophils (Bld) [#/Vol] 0.7 10*3/uL High 0.0 - 0.5 10*3/uL [facility] Eosinophils/100 WBC (Bld) 7.3 % High 0.0 - 6.0 % [facility] Erythrocyte distribution width (RBC) [Ratio] 17 % High 11.5 - 15.0 % [facility] Hematocrit (Bld) [Volume fraction] 22.7 % Low 35.0 - 47.0 % [facility] Hemoglobin (Bld) [Mass/Vol] 7.1 g/dL Low 11.7 - 16.0 g/dL [facility] Immature granulocytes (Bld) [#/Vol] 0.1 10*3/uL High NINF - 0.1 10*3/uL [facility] Immature granulocytes/100 WBC (Bld) 1.1 % 0.0 - 2.0 % [facility] Interpretation and review of laboratory results Abnormal [facility] Lymphocytes (Bld) [#/Vol] 1.9 10*3/uL 1.0 - 4.3 10*3/uL [facility] Lymphocytes/100 WBC (Bld) 19.1 % 15.0 - 45.0 % [facility] MCH (RBC) [Entitic mass] 28.7 pg 26.0 - 34.0 pg [facility] MCHC (RBC) [Mass/Vol] 31.3 % 30.5 - 36.0 % [facility] MCV (RBC) [Entitic vol] 91.9 fL 77.0 - 99.0 fL [facility] Monocytes (Bld) [#/Vol] 0.9 10*3/uL 0.0 - 0.9 10*3/uL [facility] Monocytes/100 WBC (Bld) 8.7 % 5.0 - 13.0 % [facility] Neutrophils (Bld) [#/Vol] 6.3 10*3/uL 1.8 - 7.5 10*3/uL [facility] Neutrophils/100 WBC (Bld) 62.5 % 38.0 - 82.0 % [facility] Nucleated RBC/100 WBC (Bld) [Ratio] 0 % [facility] Platelet mean volume (Bld) [Entitic vol] 10.3 fL 9.0 - 12.7 fL [facility] Platelets (Bld) [#/Vol] 495 10*3/uL High 140 - 440 10*3/uL [facility] RBC (Bld) [#/Vol] 2.47 10*6/uL Low 3.80 - 5.2 0 10*6/uL [facility] WBC (Bld) [#/Vol] 10.1 10*3/uL 3.6 - 10.7 10*3/uL [facility] CBC WITH AUTO DIFFERENTIALon 11-13-2024 Basophils (Bld) [#/Vol] 0.1 10*3/uL Normal 0.0-0.2 [facility] Comment on above: Performed By: #### L [id number] ####Waredresser: PHILLY FRANCO ([phone])[facility] ([facility])[address] [place] [address] Basophils/100 WBC (Bld) 1.3 % Normal 0.0-2.0 [facility] Comment on above: Performed By: #### L [id number] ####Waredresser: PHILLY FRANCO ([phone])[facility] ([facility])[address] [place] [address] Eosinophils (Bld) [#/Vol] 0.7 10*3/uL High 0.0-0.5 [facility] Comment on above: Performed By: #### L [id number] ####Waredresser: PHILLY FRANCO ([phone])[facility])[address] [place] [address] Eosinophils/100 WBC (Bld) 7.3 % High 0.0-6.0 [facility] Comment on above: Performed By: #### L [id number] ####Waredresser: PHILLY FRANCO ([phone])[facility])[address] [place] [address] Erythrocyte distribution width (RBC) [Ratio] 17.0 % High 11.5-15.0 [facility] Comment on above: Performed By: #### L [id number] ####Waredresser: PHILLY FRANCO ([phone])[address] Hematocrit (Bld) [Volume fraction] 22.7 % Low 35.0-47.0 [facility] Comment on above: Performed By: #### L [id number] ####Waredresser: PHILLY FRANCO ([phone])[facility])[address] [place] [address] Hemoglobin (Bld) [Mass/Vol] 7.1 g/dL Low 11.7-16.0 [facility] Comment on above: Performed By: #### L [id number] ####Waredresser: PHILLY FRANCO ([phone])[facility])[address] [place] [address] IMMATURE GRANS % 1.1 % Normal 0.0-2.0 [facility] Comment on above: Performed By: #### L [id number] ####Waredresser: PHILLY FRANCO ([phone])[facility])[address] [place] [address] IMMATURE GRANS ABSOLUTE 0.1 10*3/uL High <0.1 [facility] Comment on above: Performed By: #### L [id number] ####Waredresser: PHILLY FRANCO ([phone])[facility])[address] [place] [address] Lymphocytes (Bld) [#/Vol] 1.9 10*3/uL Normal 1.0-4.3 [facility] Comment on above: Performed By: #### L [id number] ####Waredresser: PHILLY FRANCO ([phone])[facility])[address] [place] [address] Lymphocytes/100 WBC (Bld) 19.1 % Normal 15.0-45.0 [facility] Comment on above: Performed By: #### L [id number] ####Waredresser: PHILLY FRANCO ([phone])[facility])[address] [place] [address] MCH (RBC) [Entitic mass] 28.7 pg Normal 26.0-34.0 [facility] Comment on above: Performed By: #### L [id number] ####Waredresser: PHILLY FRANCO ([phone])[facility])[address] [place] [address] MCHC 31.3 % Normal 30.5-36.0 [facility] Comment on above: Performed By: #### L [id number] ####Waredresser: PHILLY FRANCO ([phone])[facility])[address] [place] [address] MCV (RBC) [Entitic vol] 91.9 fL Normal 77.0-99.0 [facility] Comment on above: Performed By: #### L [id number] ####Waredresser: PHILLY FRANCO ([phone])[facility])[address] [place] [address] Monocytes (Bld) [#/Vol] 0.9 10*3/uL Normal 0.0-0.9 [facility] Comment on above: Performed By: #### L [id number] ####Waredresser: PHILLY FRANCO ([phone])[facility])[address] [place] [address] Monocytes/100 WBC (Bld) 8.7 % Normal 5.0-13.0 [facility] Comment on above: Performed By: #### L [id number] ####Waredresser: PHILLY FRANCO ([phone])[facility] ([facility])[address] [place] [address] NEUTROPHILS ABSOLUTE 6.3 10*3/uL Normal 1.8-7.5 [facility] Comment on above: Performed By: #### L [id number] ####Waredresser: PHILLY FRANCO ([phone])[facility] ([facility])[address] [place] [address] Neutrophils/100 WBC (Bld) 62.5 % Normal 38.0-82.0 [facility] Comment on above: Performed By: #### L [id number] ####Waredresser: PHILLY FRANCO ([phone])[facility] ([facility])[address] [place] [address] NRBC 0.0 /100 WBCs Normal 0.0-2.0 [facility] Comment on above: Performed By: #### L [id number] ####Waredresser: PHILLY FRANCO ([phone])[facility] ([facility])[address] [place] [address] Platelet mean volume (Bld) [Entitic vol] 10.3 fL Normal 9.0-12.7 [facility] Comment on above: Performed By: #### L [id number] ####Waredresser: PHILLY FRANCO ([phone])[facility] ([facility])[address] [place] [address] [place] Platelets (Bld) [#/Vol] 495 10*3/uL High 140-440 [facility] Comment on above: Performed By: #### L [id number] ####Waredresser: PHILLY FRANCO ([phone])[facility] ([facility])[address] [place] [address] RBC (Bld) [#/Vol] 2.47 10*6/uL Low 3.80-5.20 [facility] Comment on above: Performed By: #### L [id number] ####Waredresser: PHILLY FRANCO ([phone])[facility] ([facility])[address] [place] [address] WBC (Bld) [#/Vol] 10.1 10*3/uL Normal 3.6-10.7 [facility] Comment on above: Performed By: #### L [id number] ####Waredresser: PHILLY FRANCO ([phone])[facility])[address] [place] [address] Consulton 11-13-2024 Consult Normal [facility] HEMOGLOBIN AND HEMATOCRIT, B LOODon 11-13-2024 Hematocrit (Bld) [Volume fraction] 23.2 % Low 35.0-47.0 [facility] Comment on above: Performed By: #### L [id number] ####Waredresser: PHILLY FRANCO ([phone])[facility] ([facility])[address] [place] [address] Hemoglobin (Bld) [Mass/Vol] 7.2 g/dL Low 11.7-16.0 [facility] Comment on above: Performed By: #### L [id number] ####Waredresser: PHILLY FRANCO ([phone])[facility] ([facility])[address] [place] [address] Hemoglobin (Bld) [Mass/Vol]o n 11-13-2024 Hematocrit (Bld) [Volume fraction] 23.2 % Low 35.0 - 47.0 % [facility] Interpretation and review of laboratory results Abnormal [facility] - Chemistry and C hemistry - challengeon 11-13-2024 Glucose [Mass/Vol] 81 mg/dL 70 - 100 mg/dL [facility] Glucose [Mass/Vol] 64 mg/dL Low 70 - 100 mg/dL [facility] - Hematology and Cell countson 11-13-2024 Hemoglobin (Bld) [Mass/Vol] 7.2 g/dL Low 11.7 - 16.0 g/dL [facility] No Panel Informationon 11-13 Interpretation and review of laboratory results Normal [facility] Performed by: [place] [id number] CLIA ID: [id number] [facility] Interpretation and review of laboratory results Abnormal [facility] Performed by: [facility], [address] [place] [address], [facility] [id number] CLIA ID: [id number] [facility] Center Progress Noteon 11-13-2024 Progress Note Normal [facility] Progress Note Normal [facility] BASIC METABOLIC PANELon 11-03 Anion gap [Moles/Vol] 12 mmol/L Normal 3-13 [facility] Comment on above: Performed By: #### L [id number] ####Waredresser: DEANN CURRAN ([phone])[facility] ([facility])[address] Calcium [Mass/Vol] 8.1 mg/dL Low 8.8-10.0 [facility] Comment on above: Performed By: #### L AB15 ####Waredresser: DEANN CURRAN ([phone])[facility] ([facility])[address] Chloride [Moles/Vol] 104 mmol/L Normal 98-107 [facility] Comment on above: Performed By: #### L AB15 ####Waredresser: DEANN CURRAN ([phone])[facility] ([facility])[address] [place] [address] [place] CO2 [Moles/Vol] 24 mmol/L Normal 23-31 [facility] Comment on above: Performed By: #### L AB15 ####Waredresser: DEANN CURRAN ([phone])[facility] ([facility])[address] [place] [address] [place] Creatinine [Mass/Vol] 3.37 mg/dL High 0.57-1.11 [facility] Comment on above: Performed By: #### L AB15 ####Waredresser: DEANN CURRAN ([phone])[facility] ([facility])[address] [place] [address] [place] GLOMERULAR FILTRATION RATE ML/MIN/1.73 SQ M.PREDICTED 13.8 mL/min/1.73m*2 Low >60.0 [facility] Comment on above: Result Comment: Calc ulation based on the Chronic Kidney Disease Epidemiology Collaboration (CKD-EPI) equation refit without adjustment for race Performed By: #### L AB15 ####Waredresser: DEANN CURRAN ([phone])[facility] (SB[facility]AB)[address] Glucose [Mass/Vol] 78 mg/dL Low 82-115 [facility] Comment on above: Performed By: #### L AB15 ####Waredresser: DEANN CURRAN ([phone])[facility] (SBHLAB)[address] Potassium [Moles/Vol] 4.0 mmol/L Normal 3.5-5.1 [facility] Comment on above: Result Comment: [facility] potassium values may be up to 0.5 mmol/L lower than serum values. Performed By: #### L AB15 ####Waredresser: DEANN CURRAN ([phone])[facility] (SB[facility]AB)[address] Sodium [Moles/Vol] 140 mmol/L Normal 136-145 [facility] Comment on above: Performed By: #### L AB15 ####Waredresser: DEANN CURRAN ([phone])[facility] ([facility])[address] Urea nitrogen [Mass/Vol] 15 mg/dL Normal 9-23 [facility] Comment on above: Performed By: #### L AB15 ####Waredresser: DEANN CURRAN ([phone])[facility] ([facility])[address] Basic metabolic 1998 panelon 11-12-2024 Anion gap [Moles/Vol] 12 mmol/L 3 - 13 mmol/L [facility] Calcium [Mass/Vol] 8.1 mg/dL Low 8.8 - 10. 0 mg/dL [facility] Chloride [Moles/Vol] 104 mmol/L 98 - 10 7 mmol/L [facility] CO2 [Moles/Vol] 24 mmol/L 23 - 31 mmol/L [facility] Creatinine [Mass/Vol] 3.37 mg/dL High 0.57 - 1.11 mg/dL [facility] GFR/1.73 sq M.predicted (S/P/Bld) [Vol rate/Area] 13.8 mL/min Low - PINF [facility] Comment on above: Calculation based on the Chronic Kidney Disease Epidemiology Collaboration (CKD-EPI) equation refit without adjustment for race Glucose [Mass/Vol] 78 mg/dL Low 82 - 115 mg/dL [facility] Interpretation and review of laboratory results Abnormal [facility] Potassium [Moles/Vol] 4 mmol/L 3.5 - 5.1 mmol/L [facility] Comment on above: Plasma potassium bhaskar ues may be up to 0.5 mmol/L lower than serum values. Sodium [Moles/Vol] 140 mmol/L 136 - 145 mmol/L [facility] Urea nitrogen [Mass/Vol] 15 mg/dL 9 - 23 mg/dL [facility] CBC W Auto Differential pane l (Bld)Ordered By: Mona Huston on 11-12-2024 Erythrocyte distribution width (RBC) [Ratio] 17 % High 11.5 - 15.0 % [facility] Hematocrit (Bld) [Volume fraction] 29 % Low 35.0 - 47.0 % [facility] Hemoglobin (Bld) [Mass/Vol] 9.3 g/dL Low 11.7 - 16.0 g/dL [facility] IPF 4 [facility] MCH (RBC) [Entitic mass] 29.2 pg 26.0 - 34.0 pg [facility] MCHC (RBC) [Mass/Vol] 32.1 % 30.5 - 36.0 % [facility] MCV (RBC) [Entitic vol] 91.2 fL 77.0 - 99.0 fL [facility] Platelet mean volume (Bld) [Entitic vol] 10.5 fL 9.0 - 12.7 fL [facility] Platelets (Bld) [#/Vol] 407 10*3/uL 140 - 440 10*3/uL [facility] RBC (Bld) [#/Vol] 3.18 10*6/uL Low 3.80 - 5.2 0 10*6/uL [facility] WBC (Bld) [#/Vol] 10.9 10*3/uL High 3.6 - 10.7 10*3/uL [facility] CBC WITH AUTO DIFFERENTIALon 11-12-2024 Erythrocyte distribution width (RBC) [Ratio] 17.0 % High 11.5-15.0 [facility] Comment on above: Performed By: #### L [id number], [id number] ####Waredresser: DEANN CURRAN ([phone])[facility] (SBHLAB)[address] Hematocrit (Bld) [Volume fraction] 29.0 % Low 35.0-47.0 [facility] Comment on above: Performed By: #### L [id number], [id number] ####Waredresser: DEANN CURRAN ([phone])[facility] ([facility])[address] [place] [address] Hemoglobin (Bld) [Mass/Vol] 9.3 g/dL Low 11.7-16.0 [facility] Comment on above: Performed By: #### L [id number], [id number] ####Waredresser: DEANN CURRAN ([phone])[facility] ([facility])[address] IPF 4 Normal [facility] Comment on above: Performed By: #### L [id number], [id number] ####Waredresser: DEANN CURRAN ([phone])[facility] ([facility])[address] MCH (RBC) [Entitic mass] 29.2 pg Normal 26.0-34.0 [facility] Comment on above: Performed By: #### L [id number], [id number] ####Waredresser: DEANN CURRAN ([phone])[facility] (SBHLAB)[address] MCHC 32.1 % Normal 30.5-36.0 [facility] Comment on above: Performed By: #### L [id number], [id number] ####Waredresser: DEANN CURRAN ([phone])[facility] (SBHLAB)[address] MCV (RBC) [Entitic vol] 91.2 fL Normal 77.0-99.0 S [facility] Comment on above: Performed By: #### L [id number], [id number] ####Waredresser: DEANN CURRAN ([phone])[facility] (SBHLAB)[address] Platelet mean volume (Bld) [Entitic vol] 10.5 fL Normal 9.0-12.7 [facility] Comment on above: Performed By: #### L [id number], [id number] ####Waredresser: DEANN CURRAN ([phone])[facility] ([facility])[address] Platelets (Bld) [#/Vol] 407 10*3/uL Normal 140-440 [facility] Comment on above: Performed By: #### L [id number], [id number] ####Waredresser: DEANN CURRAN ([phone])[facility] (SBHLAB)[address] RBC (Bld) [#/Vol] 3.18 10*6/uL Low 3.80-5.20 [facility] Comment on above: Performed By: #### L [id number], [id number] ####Waredresser: DEANN CURRAN ([phone])[facility] (SBHLAB)[address] WBC (Bld) [#/Vol] 10.9 10*3/uL High 3.6-10.7 [facility] Comment on above: Performed By: #### L [id number], [id number] ####Waredresser: DEANN CURRAN ([phone])[facility] (SBHLAB)[address] Consulton 08-10-2025 Consult Normal [facility] ED Nursing Noteon 11-12-2024 ED Nursing Note Moody Harman at bedside for transport to [facility] for admission. Packet/blue card sent with crew. Normal [facility] ED Nursing Note Report called to Fawad ruose RN 1 [facility]. Pt awaiting transport, resting comfortably at this time, side rails up x2, curtain remains open for safety. Normal [facility] ED Provider Noteon ED Provider Note Normal [facility] MANUAL DIFFERENTIALon 2024 ANISOCYTOSIS PRESENCE IN BLOOD BY LIGHT MICROSCOPY Moderate Abnormal (none) [facility] Comment on above: Performed By: #### L [id number], [id number] ####Waredresser: DEANN CURRAN ([phone])[facility] (SBAB)[address] [place] [address] [place] BASOPHILS (10*3/UL) IN BLOOD BY MANUAL COUNT 0.1 10*3/uL Normal 0.0-0.2 [facility] Comment on above: Performed By: #### L [id number], [id number] ####Waredresser: DEANN CURRAN ([phone])[facility] (SBAB)[address] [place] [address] [place] BASOPHILS TOTAL PER COUNTED LEUKOCYTES BY MANUAL COUNT 1 Normal [facility] Comment on above: Performed By: #### L [id number], [id number] ####Waredresser: DEANN CURRAN ([phone])[facility] (SBHLAB)[address] [place] [address] [place] BASOPHILS/100 LEUKOCYTES IN BLOOD BY MANUAL COUNT 1 % Normal 0-2 [facility] Comment on above: Performed By: #### L [id number], [id number] ####Waredresser: DEANN CRURAN ([phone])[facility] (SBHLAB)[address] [place] [address] [place] LUIS FELIPE CELLS PRESENCE IN BLOOD BY LIGHT MICROSCOPY Rare Abnormal (none) [facility] Comment on above: Performed By: #### L [id number], [id number] ####Waredresser: DEANN CURRAN ([phone])[facility] (SB[facility]AB)[address] CELLS COUNTED TOTAL (#) IN BLOOD 100 Normal [facility] Comment on above: Performed By: #### L [id number], [id number] ####Waredresser: DEANN CURRAN ([phone])[facility] ([facility])[address] DIFFERENTIAL METHOD Manual differential performed Normal [facility] Comment on above: Performed By: #### L [id number], [id number] ####Waredresser: DEANN CURRAN ([phone])[facility] ([facility])[address] [place] [address] [place] EOSINOPHILS (10*3/UL) IN BLOOD BY MANUAL COUNT 0.3 10*3/uL Normal 0.0-0.5 [facility] Comment on above: Performed By: #### L [id number], [id number] ####Waredresser: DEANN CURRAN ([phone])[facility] ([facility])[address] [place] [address] [place] EOSINOPHILS TOTAL PER COUNTED LEUKOCYTES BY MANUAL COUNT 3 High 0-1 [facility] Comment on above: Performed By: #### L [id number], [id number] ####Waredresser: DEANN CURRAN ([phone])[facility] ([facility])[address] [place] [address] [place] EOSINOPHILS/100 LEUKOCYTES IN BLOOD BY MANUAL COUNT 3 % Normal 0-6 [facility] Comment on above: Performed By: #### L [id number], [id number] ####Waredresser: DEANN CURRAN ([phone])[facility] (SB[facility]AB)[address] LEUKOCYTE MORPHOLOGY FINDING IN BLOOD Normal Normal [facility] Comment on above: Performed By: #### L [id number], [id number] ####Waredresser: DEANN CURRAN ([phone])[facility] ([facility])[address] [place] [address] [place] LEUKOCYTES (10*3/UL) NUCLEATED ERYTHROCYTE ADJUST 10.9 10*3/uL High 3.6-10.7 [facility] Comment on above: Performed By: #### L [id number], [id number] ####Waredresser: DEANN CURRAN ([phone])[facility] ([facility])[address] [place] [address] [place] LYMPHOCYTES (10*3/UL) IN BLOOD BY MANUAL COUNT 1.3 10*3/uL Normal 1.0-4.3 [facility] Comment on above: Performed By: #### L [id number], [id number] ####Waredresser: DEANN CURRAN ([phone])[facility] ([facility])[address] [place] [address] [place] LYMPHOCYTES TOTAL PER COUNTED LEUKOCYTES BY MANUAL COUNT 12 Normal [facility] Comment on above: Performed By: #### L [id number], [id number] ####Waredresser: DEANN CURRAN ([phone])[facility] ([facility])[address] [place] [address] [place] LYMPHOCYTES/100 LEUKOCYTES IN BLOOD BY MANUAL COUNT 12 % Low 15-45 [facility] Comment on above: Performed By: #### L [id number], [id number] ####Waredresser: DEANN CURRAN ([phone])[facility] ([facility])[address] [place] [address] [place] MONOCYTES (10*3/UL) IN BLOOD BY MANUAL COUNT 0.5 10*3/uL Normal 0.0-0.9 [facility] Comment on above: Performed By: #### L [id number], [id number] ####Waredresser: DEANN CURRAN ([phone])[facility] ([facility])[address] [place] [address] [place] MONOCYTES TOTAL PER COUNTED LEUKOCYTES BY MANUAL COUNT 5 Normal [facility] Comment on above: Performed By: #### L [id number], [id number] ####Waredresser: DEANN [phone])[facility] (SB[facility]AB)[address] [place] [address] [place] MONOCYTES/100 LEUKOCYTES IN BLOOD BY MANUAL COUNT 5 % Normal 5-13 [facility] Comment on above: Performed By: #### L [id number], [id number] ####Waredresser: DEANN CURRAN ([phone])[facility] ([facility])[address] [place] [address] [place] NEUTROPHILS (SEGS+BANDS) (10*3/UL) BY MANUAL COUNT 8.6 10*3/uL High 1.8-7.0 [facility] Comment on above: Performed By: #### L [id number], [id number] ####Waredresser: DEANN CURRAN ([phone])[facility] ([facility])[address] NEUTROPHILS TOTAL PER COUNTED LEUKOCYTES BY MANUAL COUNT 79 Normal [facility] Comment on above: Performed By: #### L [id number], [id number] ####Waredresser: DEANN CURRAN ([phone])[facility] ([facility])[address] OVALOCYTES PRESENCE IN BLOOD BY LIGHT MICROSCOPY Slight Abnormal (none) [facility] Comment on above: Performed By: #### L [id number], [id number] ####Waredresser: DEANN CURRAN ([phone])[facility] ([facility])[address] [place] [address] [place] PLATELET MORPHOLOGY IN BLOOD Normal Normal [facility] Comment on above: Performed By: #### L [id number], [id number] ####Waredresser: DEANN CURRAN ([phone])[facility] ([facility])[address] [place] [address] [place] POIKILOCYTOSIS (PRESENCE) IN BLOOD BY LIGHT MICROSCOPY Slight Abnormal (none) [facility] Comment on above: Performed By: #### L XR6234, [id number] ####Waredresser: DEANN CURRAN ([phone])[facility] (SBHLAB)[address] SEGEMENTED NEUTROPHILS/100 LEUKOCYTES BY MANUAL COUNT 79 % Normal 38-82 [facility] Comment on above: Performed By: #### L [id number], [id number] ####Waredresser: DEANN CURRAN ([phone])[facility] (SBHLAB)[address] Manual differential performe d Ql (Bld)on 11-12-2024 Anisocytosis Ql (Bld) Moderate Abnormal (none) [facility] Basophils (Bld) [#/Vol] 0.1 10*3/uL 0.0 - 0.2 10*3/uL [facility] Basophils Manual 1 [facility] Basophils/100 WBC (Bld) 1 % 0 - 2 % S [facility] cells LM Ql (Bld) Rare Abnormal (none) [facility] Cells Counted Total (Bld) [#] 100 {cells} [facility] Differential Method Manual differential performed [facility] Eosinophils (Bld) [#/Vol] 0.3 10*3/uL 0.0 - 0.5 10*3/uL [facility] Eosinophils Manual 3 High 0 - 1 [facility] Eosinophils/100 WBC (Bld) 3 % 0 - 6 % [facility] Leukocyte morphology finding Nom (Bld) Normal [facility] Lymphocytes (Bld) [#/Vol] 1.3 10*3/uL 1.0 - 4.3 10*3/uL [facility] Lymphocytes Manual 12 [facility] Lymphocytes/100 WBC (Bld) 12 % Low 15 - 45 % [facility] Monocytes (Bld) [#/Vol] 0.5 10*3/uL 0.0 - 0.9 10*3/uL [facility] Monocytes Manual 5 [facility] Monocytes/100 WBC (Bld) 5 % 5 - 13 % [facility] Neutrophils (Bld) [#/Vol] 8.6 10*3/uL High 1.8 - 7.0 10*3/uL [facility] Neutrophils Manual 79 [facility] Ovalocytes LM Ql (Bld) Slight Abnormal (none) [facility] Platelet morphology finding Nom (Bld) Normal [facility] Poikilocytosis LM Ql (Bld) Slight Abnormal (none) [facility] Segmented neutrophils/100 WBC (Bld) 79 % 38 - 82 % [facility] WBC corrected for nucl RBC (Bld) [#/Vol] 10.9 10*3/uL High 3.6 - 10.7 10*3/uL [facility] No Panel InformationOrdered By: Mona Huston on 11-12-2024 Interpretation and review of laboratory results Abnormal [facility] [id number] 11-11-2024 [id number] Normal [facility] [id number] Fci/SNF - Return [place] [facility] [address] [facility] [id number] Patient/Family Choice Normal [facility] [id number] Normal [facility] BASIC METABOLIC PANELon Anion gap [Moles/Vol] 9 mmol/L Normal 3-13 [facility] Comment on above: Performed By: #### L AB15 ####Waredresser: PHILLY FRANCO ([phone])[facility] ([facility])[address] [place] [address] Calcium [Mass/Vol] 7.3 mg/dL Low 8.8-10.0 [facility] Comment on above: Performed By: #### L AB15 ####Waredresser: PHILLY FRANCO ([phone])[facility] ([facility])[address] [place] [address] [place] Chloride [Moles/Vol] 105 mmol/L Normal 98-107 [facility] Comment on above: Performed By: #### L AB15 ####Waredresser: PHILLY FRANCO ([phone])[facility] ([facility])[address] [place] [address] [place] CO2 [Moles/Vol] 24 mmol/L Normal 23-31 [facility] Comment on above: Performed By: #### L AB15 ####Waredresser: PHILLY FRANCO ([phone])[facility] ([facility])[address] [place] [address] [place] Creatinine [Mass/Vol] 4.23 mg/dL High 0.57-1.11 [facility] Comment on above: Performed By: #### L AB15 ####Waredresser: PHILLY FRANCO ([phone])[facility])[address] [place] [address] GLOMERULAR FILTRATION RATE ML/MIN/1.73 SQ M.PREDICTED 10.5 mL/min/1.73m*2 Low >60.0 [facility] Comment on above: Result Comment: Calc ulation based on the Chronic Kidney Disease Epidemiology Collaboration (CKD-EPI) equation refit without adjustment for race Performed By: #### L AB15 ####Waredresser: PHILLY FRANCO ([phone])[facility])[address] [place] [address] Glucose [Mass/Vol] 67 mg/dL Low 82-115 [facility] Comment on above: Performed By: #### L AB15 ####Waredresser: PHILLY FRANCO ([phone])[facility])[address] [place] [address] Potassium [Moles/Vol] 4.5 mmol/L Normal 3.5-5.1 [facility] Comment on above: Result Comment: [facility] potassium values may be up to 0.5 mmol/L lower than serum values. Performed By: #### L AB15 ####Waredresser: PHILLY FRANCO ([phone])[facility])[address] [place] [address] Sodium [Moles/Vol] 138 mmol/L Normal 136-145 [facility] Comment on above: Performed By: #### L AB15 ####Waredresser: PHILLY FRANCO ([phone])[facility])[address] [place] [address] Urea nitrogen [Mass/Vol] 26 mg/dL High 9-23 [facility] Comment on above: Performed By: #### L AB15 ####Waredresser: PHILLY FRANCO ([phone])[facility])[address] [place] [address] BLOOD TYPE AND SCREEN GELon 11-11-2024 ABO GROUPING O Normal [facility] Comment on above: Performed By: #### L [id number] ####Waredresser: PHILLY FRANCO ([phone])[facility] BLOOD [facility] [place] [address] RH TYPE IN BLOOD Positive Normal [facility] Comment on above: Performed By: #### L [id number] ####Waredresser: PHILLY FRANCO ([phone])[facility] BLOOD [facility])[address] [place] [address] Basic metabolic 1998 panelon 11-11-2024 Anion gap [Moles/Vol] 9 mmol/L 3 - 13 mmol/L [facility] Calcium [Mass/Vol] 7.3 mg/dL Low 8.8 - 10. 0 mg/dL [facility] Chloride [Moles/Vol] 105 mmol/L 98 - 10 7 mmol/L [facility] CO2 [Moles/Vol] 24 mmol/L 23 - 31 mmol/L [facility] Creatinine [Mass/Vol] 4.23 mg/dL High 0.57 - 1.11 mg/dL [facility] GFR/1.73 sq M.predicted (S/P/Bld) [Vol rate/Area] 10.5 mL/min Low - PINF [facility] Glucose [Mass/Vol] 67 mg/dL Low 82 - 115 mg/dL [facility] Interpretation and review of laboratory results Abnormal [facility] Potassium [Moles/Vol] 4.5 mmol/L 3.5 - 5.1 mmol/L [facility] Sodium [Moles/Vol] 138 mmol/L 136 - 145 mmol/L [facility] Urea nitrogen [Mass/Vol] 26 mg/dL High 9 - 23 mg/dL [facility] Blood type and Crossmatch pa kojo (Bld)on 11-11-2024 ABO group Nom (Bld) O [facility] Blood group antibody screen GEL Ql Negative [facility] D Ag Ql (RBC) Positive [facility] CBC W Auto Differential pane l (Bld)on 11-11-2024 Basophils (Bld) [#/Vol] 0.1 10*3/uL 0.0 - 0.2 10*3/uL [facility] Basophils/100 WBC (Bld) 1 % 0.0 - 2.0 % [facility] Eosinophils (Bld) [#/Vol] 0.4 10*3/uL 0.0 - 0.5 10*3/uL [facility] Eosinophils/100 WBC (Bld) 3.1 % 0.0 - 6.0 % [facility] Erythrocyte distribution width (RBC) [Ratio] 17.1 % High 11.5 - 15.0 % [facility] Hematocrit (Bld) [Volume fraction] 21.8 % Low 35.0 - 47.0 % [facility] Hemoglobin (Bld) [Mass/Vol] 7 g/dL Low 11.7 - 16.0 g/dL [facility] Immature granulocytes (Bld) [#/Vol] 0.1 10*3/uL High NINF - 0.1 10*3/uL [facility] Immature granulocytes/100 WBC (Bld) 1.1 % 0.0 - 2.0 % [facility] Interpretation and review of laboratory results Abnormal [facility] Lymphocytes (Bld) [#/Vol] 1.8 10*3/uL 1.0 - 4.3 10*3/uL [facility] Lymphocytes/100 WBC (Bld) 14.3 % Low 15.0 - 45.0 % [facility] MCH (RBC) [Entitic mass] 29.3 pg 26.0 - 34.0 pg [facility] MCHC (RBC) [Mass/Vol] 32.1 % 30.5 - 36.0 % [facility] MCV (RBC) [Entitic vol] 91.2 fL 77.0 - 99.0 fL [facility] Monocytes (Bld) [#/Vol] 0.9 10*3/uL 0.0 - 0.9 10*3/uL [facility] Monocytes/100 WBC (Bld) 7.1 % 5.0 - 13.0 % [facility] Neutrophils (Bld) [#/Vol] 9.3 10*3/uL High 1.8 - 7.5 10*3/uL [facility] Neutrophils/100 WBC (Bld) 73.4 % 38.0 - 82.0 % [facility] Nucleated RBC/100 WBC (Bld) [Ratio] 0 % [facility] [employer] Platelet mean volume (Bld) [Entitic vol] 10.4 fL 9.0 - 12.7 fL [facility] Platelets (Bld) [#/Vol] 480 10*3/uL High 140 - 440 10*3/uL [facility] RBC (Bld) [#/Vol] 2.39 10*6/uL Low 3.80 - 5.2 0 10*6/uL [facility] WBC (Bld) [#/Vol] 12.6 10*3/uL High 3.6 - 10.7 10*3/uL [facility] CBC WITH AUTO DIFFERENTIALon 11-11-2024 Basophils (Bld) [#/Vol] 0.1 10*3/uL Normal 0.0-0.2 [facility] Comment on above: Performed By: #### L [id number] ####Waredresser: PHILLY FRANCO ([phone])[facility] ([facility])[address] [place] [address] Basophils/100 WBC (Bld) 1.0 % Normal 0.0-2.0 [facility] Comment on above: Performed By: #### L [id number] ####Waredresser: PHILLY FRANCO ([phone])[facility] ([facility])[address] [place] [address] [place] Eosinophils (Bld) [#/Vol] 0.4 10*3/uL Normal 0.0-0.5 [facility] Comment on above: Performed By: #### L [id number] ####Waredresser: PHILLY FRANCO ([phone])[facility] ([facility])[address] [place] [address] [place] Eosinophils/100 WBC (Bld) 3.1 % Normal 0.0-6.0 [facility] Comment on above: Performed By: #### L [id number] ####Waredresser: PHILLY FRANCO ([phone])[facility] ([facility])[address] [place] [address] [place] Erythrocyte distribution width (RBC) [Ratio] 17.1 % High 11.5-15.0 [facility] Comment on above: Performed By: #### L [id number] ####Waredresser: PHILLY [id number])[facility])[address] [place] [address] Hematocrit (Bld) [Volume fraction] 21.8 % Low 35.0-47.0 [facility] [facility] Comment on above: Performed By: #### L [id number] ####Waredresser: PHILLY FRANCO ([phone])[facility])[address] [place] [address] Hemoglobin (Bld) [Mass/Vol] 7.0 g/dL Low 11.7-16.0 [facility] Comment on above: Performed By: #### L [id number] ####Waredresser: PHILLY FRANCO ([phone])[facility])[address] [place] [address] IMMATURE GRANS % 1.1 % Normal 0.0-2.0 [facility] Comment on above: Performed By: #### L [id number] ####Waredresser: PHILLY FRANCO ([phone])[facility])[address] [place] [address] IMMATURE GRANS ABSOLUTE 0.1 10*3/uL High <0.1 [facility] Comment on above: Performed By: #### L [id number] ####Waredresser: PHILLY FRANCO ([phone])[facility])[address] [place] [address] Lymphocytes (Bld) [#/Vol] 1.8 10*3/uL Normal 1.0-4.3 [facility] Comment on above: Performed By: #### L [id number] ####Waredresser: PHILLY FRANCO ([phone])[facility])[address] [place] [address] Lymphocytes/100 WBC (Bld) 14.3 % Low 15.0-45.0 [facility] Comment on above: Performed By: #### L [id number] ####Waredresser: PHILLY FRANCO ([phone])[facility])[address] [place] [address] MCH (RBC) [Entitic mass] 29.3 pg Normal 26.0-34.0 [facility] Comment on above: Performed By: #### L [id number] ####Waredresser: PHILLY FRANCO ([phone])[facility])[address] [place] [address] MCHC 32.1 % Normal 30.5-36.0 [facility] Comment on above: Performed By: #### L [id number] ####Waredresser: PHILLY FRANCO ([phone])[facility])[address] [place] [address] MCV (RBC) [Entitic vol] 91.2 fL Normal 77.0-99.0 [facility] Comment on above: Performed By: #### L [id number] ####Waredresser: PHILLY FRANCO ([phone])[facility])[address] [place] [address] Monocytes (Bld) [#/Vol] 0.9 10*3/uL Normal 0.0-0.9 [facility] Comment on above: Performed By: #### L [id number] ####Waredresser: PHILLY FRANCO ([phone])[facility])[address] [place] [address] Monocytes/100 WBC (Bld) 7.1 % Normal 5.0-13.0 [facility] Comment on above: Performed By: #### L [id number] ####Waredresser: PHILLY FRACNO ([phone])[facility])[address] [place] [address] NEUTROPHILS ABSOLUTE 9.3 10*3/uL High 1.8-7.5 [facility] Comment on above: Performed By: #### L [id number] ####Waredresser: PHILLY FRANCO ([phone])[address] Neutrophils/100 WBC (Bld) 73.4 % Normal 38.0-82.0 [facility] Comment on above: Performed By: #### L [id number] ####Waredresser: PHILLY FRANCO ([phone])[facility] ([facility])[address] [place] [address] NRBC 0.0 /100 WBCs Normal 0.0-2.0 [facility] Comment on above: Performed By: #### L [id number] ####Waredresser: PHILLY FRANCO ([phone])[facility] ([facility])[address] [place] [address] Platelet mean volume (Bld) [Entitic vol] 10.4 fL Normal 9.0-12.7 [facility] Comment on above: Performed By: #### L [id number] ####Waredresser: PHILLY FRANCO ([phone])[facility])[address] [place] [address] Platelets (Bld) [#/Vol] 480 10*3/uL High 140-440 [facility] Comment on above: Performed By: #### L [id number] ####Waredresser: PHILLY FRANCO ([phone])[facility] ([facility])[address] [place] [address] RBC (Bld) [#/Vol] 2.39 10*6/uL Low 3.80-5.20 [facility] Comment on above: Performed By: #### L [id number] ####Waredresser: PHILLY FRANCO ([phone])[facility])[address] [place] [address] WBC (Bld) [#/Vol] 12.6 10*3/uL High 3.6-10.7 [facility] Comment on above: Performed By: #### L [id number] ####Waredresser: PHILLY FRANCO ([phone])[facility])[address] [place] [address] Nursing Noteon 11-11-2024 Nursing Note [facility] Normal [facility] Nursing Note Called report to [facility] at [facility]. Pt brother at bedside aware of dc. Normal [facility] Nursing Note Normal [facility] Progress Noteon 11-11-2024 Progress Note Normal [facility] Progress Note Normal [facility] BASIC METABOLIC PANELon Anion gap [Moles/Vol] 5 mmol/L Normal 3-13 [facility] Comment on above: Performed By: #### L [id number] ####Waredresser: PHILLY FRANCO ([phone])[facility] ([facility])[address] [place] [address] Calcium [Mass/Vol] 7.6 mg/dL Low 8.8-10.0 [facility] Comment on above: Performed By: #### L [id number] ####Waredresser: PHILLY FRANCO ([phone])[facility])[address] [place] [address] Chloride [Moles/Vol] 103 mmol/L Normal 98-107 [facility] Comment on above: Performed By: #### L [id number] ####Waredresser: PHILLY FRANCO ([phone])[facility] ([facility])[address] [place] [address] CO2 [Moles/Vol] 26 mmol/L Normal 23-31 [facility] Comment on above: Performed By: #### L [id number] ####Waredresser: PHILLY FRANCO ([phone])[facility])[address] [place] [address] Creatinine [Mass/Vol] 2.81 mg/dL High 0.57-1.11 [facility] Comment on above: Performed By: #### L [id number] ####Waredresser: PHILLY FRANCO ([phone])[facility] ([facility])[address] [place] [address] [place] GLOMERULAR FILTRATION RATE ML/MIN/1.73 SQ M.PREDICTED 17.1 mL/min/1.73m*2 Low >60.0 [facility] Comment on above: Result Comment: Calc ulation based on the Chronic Kidney Disease Epidemiology Collaboration (CKD-EPI) equation refit without adjustment for race Performed By: #### L [id number] ####Waredresser: PHILLY FRANCO ([phone])[facility] ([facility])[address] [place] [address] Glucose [Mass/Vol] 67 mg/dL Low 82-115 [facility] Comment on above: Performed By: #### L [id number] ####Waredresser: PHILLY FRANCO ([phone])[facility] ([facility])[address] [place] [address] Potassium [Moles/Vol] 4.0 mmol/L Normal 3.5-5.1 [facility] Comment on above: Result Comment: [facility] potassium values may be up to 0.5 mmol/L lower than serum values. Performed By: #### L [id number] ####Waredresser: PHILLY FRANCO ([phone])[facility] ([facility])[address] [place] [address] Sodium [Moles/Vol] 134 mmol/L Low 136-145 [facility] Comment on above: Performed By: #### L [id number] ####Waredresser: PHILLY FRANCO ([phone])[facility] ([facility])[address] [place] [address] Urea nitrogen [Mass/Vol] 16 mg/dL Normal 9-23 [facility] Comment on above: Performed By: #### L [id number] ####Waredresser: PHILLY FRANCO ([phone])[facility] ([facility])[address] [place] [address] Basic metabolic 1998 panelon 11-10-2024 Anion gap [Moles/Vol] 5 mmol/L 3 - 13 mmol/L [facility] Calcium [Mass/Vol] 7.6 mg/dL Low 8.8 - 10. 0 mg/dL [facility] Chloride [Moles/Vol] 103 mmol/L 98 - 10 7 mmol/L [facility] CO2 [Moles/Vol] 26 mmol/L 23 - 31 mmol/L [facility] Creatinine [Mass/Vol] 2.81 mg/dL High 0.57 - 1.11 mg/dL [facility] GFR/1.73 sq M.predicted (S/P/Bld) [Vol rate/Area] 17.1 mL/min Low - PINF [facility] Glucose [Mass/Vol] 67 mg/dL Low 82 - 115 mg/dL [facility] Interpretation and review of laboratory results Abnormal [facility] Potassium [Moles/Vol] 4 mmol/L 3.5 - 5.1 mmol/L [facility] Sodium [Moles/Vol] 134 mmol/L Low 136 - 145 mmol/L [facility] Urea nitrogen [Mass/Vol] 16 mg/dL 9 - 23 mg/dL [facility] CBC W Auto Differential pane l (Bld)on 11-10-2024 Basophils (Bld) [#/Vol] 0.1 10*3/uL 0.0 - 0.2 10*3/uL [facility] Basophils/100 WBC (Bld) 1 % 0.0 - 2.0 % [facility] Eosinophils (Bld) [#/Vol] 0.4 10*3/uL 0.0 - 0.5 10*3/uL [facility] Eosinophils/100 WBC (Bld) 3.1 % 0.0 - 6.0 % [facility] Erythrocyte distribution width (RBC) [Ratio] 16.9 % High 11.5 - 15.0 % [facility] Hematocrit (Bld) [Volume fraction] 21.6 % Low 35.0 - 47.0 % [facility] Hemoglobin (Bld) [Mass/Vol] 7 g/dL Low 11.7 - 16.0 g/dL [facility] Immature granulocytes (Bld) [#/Vol] 0.2 10*3/uL High NINF - 0.1 10*3/uL [facility] Immature granulocytes/100 WBC (Bld) 1.1 % 0.0 - 2.0 % [facility] Interpretation and review of laboratory results Abnormal [facility] Lymphocytes (Bld) [#/Vol] 2 10*3/uL 1.0 - 4.3 10*3/uL [facility] Lymphocytes/100 WBC (Bld) 15.1 % 15.0 - 45.0 % [facility] MCH (RBC) [Entitic mass] 28.8 pg 26.0 - 34.0 pg [facility] MCHC (RBC) [Mass/Vol] 32.4 % 30.5 - 36.0 % [facility] MCV (RBC) [Entitic vol] 88.9 fL 77.0 - 99.0 fL [facility] Monocytes (Bld) [#/Vol] 1.1 10*3/uL High 0.0 - 0.9 10*3/uL [facility] Monocytes/100 WBC (Bld) 8.1 % 5.0 - 13.0 % [facility] Neutrophils (Bld) [#/Vol] 9.4 10*3/uL High 1.8 - 7.5 10*3/uL [facility] Neutrophils/100 WBC (Bld) 71.6 % 38.0 - 82.0 % [facility] Nucleated RBC/100 WBC (Bld) [Ratio] 0 % [facility] Platelet mean volume (Bld) [Entitic vol] 10.4 fL 9.0 - 12.7 fL [facility] Platelets (Bld) [#/Vol] 382 10*3/uL 140 - 440 10*3/uL [facility] RBC (Bld) [#/Vol] 2.43 10*6/uL Low 3.80 - 5.2 0 10*6/uL [facility] WBC (Bld) [#/Vol] 13.2 10*3/uL High 3.6 - 10.7 10*3/uL [facility] CBC WITH AUTO DIFFERENTIALon 11-10-2024 Basophils (Bld) [#/Vol] 0.1 10*3/uL Normal 0.0-0.2 [facility] Comment on above: Performed By: #### L [id number] ####Waredresser: PHILLY [phone])[address] Basophils/100 WBC (Bld) 1.0 % Normal 0.0-2.0 [facility] Comment on above: Performed By: #### L [id number] ####Waredresser: PHILLY [phone])[address] Eosinophils (Bld) [#/Vol] 0.4 10*3/uL Normal 0.0-0.5 [facility] Comment on above: Performed By: #### L [id number] ####Waredresser: PHILLY [phone])[facility])[address] [place] [address] Eosinophils/100 WBC (Bld) 3.1 % Normal 0.0-6.0 [facility] Comment on above: Performed By: #### L [id number] ####Waredresser: PHILLY FRANCO ([phone])[facility])[address] [place] [address] Erythrocyte distribution width (RBC) [Ratio] 16.9 % High 11.5-15.0 [facility] Comment on above: Performed By: #### L [id number] ####Waredresser: PHILLY FRANCO ([phone])[facility])[address] [place] [address] Hematocrit (Bld) [Volume fraction] 21.6 % Low 35.0-47.0 [facility] Comment on above: Performed By: #### L [id number] ####Waredresser: PHILLY FRANCO ([phone])[facility])[address] [place] [address] Hemoglobin (Bld) [Mass/Vol] 7.0 g/dL Low 11.7-16.0 [facility] Comment on above: Performed By: #### L [id number] ####Waredresser: PHILLY FRANCO ([phone])[facility])[address] [place] [address] IMMATURE GRANS % 1.1 % Normal 0.0-2.0 [facility] Comment on above: Performed By: #### L [id number] ####Waredresser: PHILLY FRANCO ([phone])[facility])[address] [place] [address] IMMATURE GRANS ABSOLUTE 0.2 10*3/uL High <0.1 [facility] Comment on above: Performed By: #### L [id number] ####Waredresser: PHILLY FRANCO ([phone])[facility])[address] [place] [address] Lymphocytes (Bld) [#/Vol] 2.0 10*3/uL Normal 1.0-4.3 [facility] Comment on above: Performed By: #### L [id number] ####Waredresser: PHILLY FRANCO ([phone])[facility])[address] [place] [address] Lymphocytes/100 WBC (Bld) 15.1 % Normal 15.0-45.0 [facility] Comment on above: Performed By: #### L [id number] ####Waredresser: PHILLY FRANCO ([phone])[facility])[address] [place] [address] MCH (RBC) [Entitic mass] 28.8 pg Normal 26.0-34.0 [facility] Comment on above: Performed By: #### L [id number] ####Waredresser: PHILLY FRANCO ([phone])[facility])[address] [place] [address] MCHC 32.4 % Normal 30.5-36.0 [facility] Comment on above: Performed By: #### L [id number] ####Waredresser: PHILLY RFANCO ([phone])[facility])[address] [place] [address] MCV (RBC) [Entitic vol] 88.9 fL Normal 77.0-99.0 [facility] Comment on above: Performed By: #### L [id number] ####Waredresser: PHILLY FRANCO ([phone])[facility])[address] [place] [address] Monocytes (Bld) [#/Vol] 1.1 10*3/uL High 0.0-0.9 [facility] Comment on above: Performed By: #### L [id number] ####Waredresser: PHILLY FRANCO ([phone])[facility])[address] [place] [address] Monocytes/100 WBC (Bld) 8.1 % Normal 5.0-13.0 [facility] Comment on above: Performed By: #### L [id number] ####Waredresser: PHILLY FRANCO ([phone])[facility] ([facility])[address] [place] [address] NEUTROPHILS ABSOLUTE 9.4 10*3/uL High 1.8-7.5 [facility] Comment on above: Performed By: #### L [id number] ####Waredresser: PHILLY FRANCO ([phone])[facility] ([facility])[address] [place] [address] Neutrophils/100 WBC (Bld) 71.6 % Normal 38.0-82.0 [facility] Comment on above: Performed By: #### L [id number] ####Waredresser: PHILLY FRANCO ([phone])[facility])[address] [place] [address] NRBC 0.0 /100 WBCs Normal 0.0-2.0 [facility] Comment on above: Performed By: #### L [id number] ####Waredresser: PHILLY FRNACO ([phone])[facility] ([facility])[address] [place] [address] Platelet mean volume (Bld) [Entitic vol] 10.4 fL Normal 9.0-12.7 [facility] Comment on above: Performed By: #### L [id number] ####Waredresser: PHILLY FRANCO ([phone])[facility] ([facility])[address] [place] [address] Platelets (Bld) [#/Vol] 382 10*3/uL Normal 140-440 [facility] Comment on above: Performed By: #### L [id number] ####Waredresser: PHILLY FRANCO ([phone])[facility] ([facility])[address] [place] [address] RBC (Bld) [#/Vol] 2.43 10*6/uL Low 3.80-5.20 [facility] Comment on above: Performed By: #### L [id number] ####Waredresser: PHILLY FRANCO ([phone])[facility] ([facility])[address] [place] [address] WBC (Bld) [#/Vol] 13.2 10*3/uL High 3.6-10.7 [facility] Comment on above: Performed By: #### L [id number] ####Waredresser: PHILLY FRANCO ([phone])[facility] ([facility])[address] [place] [address] Nursing Noteon 11-10-2024 Nursing Note Normal [facility] Progress Noteon 11-10-2024 Progress Note Normal [facility] Progress Note Normal [facility] Progress Note Normal [facility] Progress Note Normal [facility] Progress Note Normal [facility] BASIC METABOLIC PANELon Anion gap [Moles/Vol] 8 mmol/L Normal 3-13 [facility] Comment on above: Performed By: #### L [id number] ####Waredresser: PHILLY FRANCO ([phone])[facility])[address] [place] [address] Calcium [Mass/Vol] 7.4 mg/dL Low 8.8-10.0 [facility] Comment on above: Performed By: #### L AB15 ####Waredresser: PHILLY FRANCO ([phone])[facility] ([facility])[address] [place] [address] Chloride [Moles/Vol] 102 mmol/L Normal 98-107 [facility] Comment on above: Performed By: #### L AB15 ####Waredresser: PHILLY FRANCO ([phone])[facility] ([facility])[address] [place] [address] CO2 [Moles/Vol] 24 mmol/L Normal 23-31 [facility] Comment on above: Performed By: #### L AB15 ####Waredresser: PHILLY FRANCO ([phone])[facility] ([facility])[address] [place] [address] Creatinine [Mass/Vol] 4.02 mg/dL High 0.57-1.11 [facility] Comment on above: Performed By: #### L AB15 ####Waredresser: PHILLY FRANCO ([phone])[facility])[address] [place] [address] [place] GLOMERULAR FILTRATION RATE ML/MIN/1.73 SQ M.PREDICTED 11.2 mL/min/1.73m*2 Low >60.0 [facility] Comment on above: Result Comment: Calc ulation based on the Chronic Kidney Disease Epidemiology Collaboration (CKD-EPI) equation refit without adjustment for race Performed By: #### L AB15 ####Waredresser: PHILLY FRANCO ([phone])[facility] ([facility])[address] [place] [address] Glucose [Mass/Vol] 68 mg/dL Low 82-115 [facility] Comment on above: Performed By: #### L AB15 ####Waredresser: PHILLY FRANCO ([phone])[facility])[address] [place] [address] Potassium [Moles/Vol] 4.5 mmol/L Normal 3.5-5.1 [facility] Comment on above: Result Comment: [facility] potassium values may be up to 0.5 mmol/L lower than serum values. Performed By: #### L AB15 ####Waredresser: PHILLY FRANCO ([phone])[facility])[address] [place] [address] [place] Sodium [Moles/Vol] 134 mmol/L Low 136-145 [facility] Comment on above: Performed By: #### L AB15 ####Waredresser: PHILLY FRANCO ([phone])[facility])[address] [place] [address] [place] Urea nitrogen [Mass/Vol] 24 mg/dL High 9-23 [facility] Comment on above: Performed By: #### L AB15 ####Waredresser: PHILLY FRANCO ([phone])[facility])[address] [place] [address] BLOOD TYPE AND SCREEN GELon 11-09-2024 ABO GROUPING O Normal [facility] Comment on above: Performed By: #### L [id number] ####Waredresser: PHILLY FRANCO ([phone])[facility] ([facility])[address] [place] [address] RH TYPE IN BLOOD Positive Normal [facility] Comment on above: Performed By: #### L [id number] ####Waredresser: PHILLY FRANCO ([phone])[facility] ([facility])[address] [place] [address] Basic metabolic 1998 panelon 11-09-2024 Anion gap [Moles/Vol] 8 mmol/L 3 - 13 mmol/L [facility] Calcium [Mass/Vol] 7.4 mg/dL Low 8.8 - 10. 0 mg/dL [facility] Chloride [Moles/Vol] 102 mmol/L 98 - 10 7 mmol/L [facility] CO2 [Moles/Vol] 24 mmol/L 23 - 31 mmol/L [facility] Creatinine [Mass/Vol] 4.02 mg/dL High 0.57 - 1.11 mg/dL [facility] GFR/1.73 sq M.predicted (S/P/Bld) [Vol rate/Area] 11.2 mL/min Low - PINF [facility] Glucose [Mass/Vol] 68 mg/dL Low 82 - 115 mg/dL [facility] Interpretation and review of laboratory results Abnormal [facility] Potassium [Moles/Vol] 4.5 mmol/L 3.5 - 5.1 mmol/L [facility] Sodium [Moles/Vol] 134 mmol/L Low 136 - 145 mmol/L [facility] Urea nitrogen [Mass/Vol] 24 mg/dL High 9 - 23 mg/dL [facility] Blood type and Crossmatch pa kojo (Bld)on 11-09-2024 ABO group Nom (Bld) O [facility] Blood group antibody screen GEL Ql Negative [facility] D Ag Ql (RBC) Positive [facility] CBC W Auto Differential pane l (Bld)Ordered By: Yogi Stanley on 11-09-2024 Basophils (Bld) [#/Vol] 0.2 10*3/uL 0.0 - 0.2 10*3/uL [facility] Basophils/100 WBC (Bld) 1 % 0.0 - 2.0 % [facility] Eosinophils (Bld) [#/Vol] 0.4 10*3/uL 0.0 - 0.5 10*3/uL [facility] Eosinophils/100 WBC (Bld) 2.7 % 0.0 - 6.0 % [facility] Erythrocyte distribution width (RBC) [Ratio] 16.7 % High 11.5 - 15.0 % [facility] Hematocrit (Bld) [Volume fraction] 21.4 % Low 35.0 - 47.0 % [facility] Hemoglobin (Bld) [Mass/Vol] 6.8 g/dL Critically low 11.7 - 16.0 g/dL [facility] Immature granulocytes (Bld) [#/Vol] 0.1 10*3/uL High NINF - 0.1 10*3/uL [facility] Immature granulocytes/100 WBC (Bld) 0.8 % 0.0 - 2.0 % [facility] Interpretation and review of laboratory results Abnormal [facility] Lymphocytes (Bld) [#/Vol] 2.2 10*3/uL 1.0 - 4.3 10*3/uL [facility] Lymphocytes/100 WBC (Bld) 13.5 % Low 15.0 - 45.0 % [facility] MCH (RBC) [Entitic mass] 28.3 pg 26.0 - 34.0 pg [facility] MCHC (RBC) [Mass/Vol] 31.8 % 30.5 - 36.0 % [facility] MCV (RBC) [Entitic vol] 89.2 fL 77.0 - 99.0 fL [facility] Monocytes (Bld) [#/Vol] 1 10*3/uL High 0.0 - 0.9 10*3/uL [facility] Monocytes/100 WBC (Bld) 6.1 % 5.0 - 13.0 % [facility] Neutrophils (Bld) [#/Vol] 12.1 10*3/uL High 1.8 - 7.5 10*3/uL [facility] Neutrophils/100 WBC (Bld) 75.9 % 38.0 - 82.0 % [facility] Nucleated RBC/100 WBC (Bld) [Ratio] 0 % [facility] Platelet mean volume (Bld) [Entitic vol] 10.1 fL 9.0 - 12.7 fL [facility] Platelets (Bld) [#/Vol] 414 10*3/uL 140 - 440 10*3/uL [facility] RBC (Bld) [#/Vol] 2.4 10*6/uL Low 3.80 - 5.2 0 10*6/uL [facility] WBC (Bld) [#/Vol] 16 10*3/uL High 3.6 - 10.7 10*3/uL [facility] CBC WITH AUTO DIFFERENTIALon 11-09-2024 Basophils (Bld) [#/Vol] 0.2 10*3/uL Normal 0.0-0.2 [facility] Comment on above: Performed By: #### L [id number] ####Waredresser: PHILLY FRANCO ([id number])[facility])[address] [place] [address] Basophils/100 WBC (Bld) 1.0 % Normal 0.0-2.0 [facility] Comment on above: Performed By: #### L [id number] ####Waredresser: PHILLY FRANCO ([id number])[facility] ([facility])[address] [place] [address] [place] Eosinophils (Bld) [#/Vol] 0.4 10*3/uL Normal 0.0-0.5 [facility] Comment on above: Performed By: #### L [id number] ####Waredresser: PHILLY FRANCO ([id number])[facility])[address] [place] [address] Eosinophils/100 WBC (Bld) 2.7 % Normal 0.0-6.0 [facility] Comment on above: Performed By: #### L [id number] ####Waredresser: PHILLY FRANCO ([id number])[facility] ([facility])[address] [place] [address] [place] Erythrocyte distribution width (RBC) [Ratio] 16.7 % High 11.5-15.0 [facility] Comment on above: Performed By: #### L [id number] ####Waredresser: PHILLY [phone])[facility] [address] Hematocrit (Bld) [Volume fraction] 21.4 % Low 35.0-47.0 [facility] Comment on above: Performed By: #### L [id number] ####Waredresser: PHILLY FRANCO ([phone])[facility])[address] [place] [address] Hemoglobin (Bld) [Mass/Vol] 6.8 g/dL Critically low 11.7-16.0 [facility] Comment on above: Performed By: #### L [id number] ####Waredresser: PHILLY FRANCO ([phone])[facility])[address] [place] [address] IMMATURE GRANS % 0.8 % Normal 0.0-2.0 [facility] Comment on above: Performed By: #### L [id number] ####Waredresser: PHILLY FRANCO ([phone])[facility])[address] [place] [address] IMMATURE GRANS ABSOLUTE 0.1 10*3/uL High <0.1 [facility] Comment on above: Performed By: #### L [id number] ####Waredresser: PHILLY FRANCO ([phone])[facility])[address] [place] [address] Lymphocytes (Bld) [#/Vol] 2.2 10*3/uL Normal 1.0-4.3 [facility] Comment on above: Performed By: #### L [id number] ####Waredresser: PHILLY FRANCO ([phone])[facility])[address] [place] [address] Lymphocytes/100 WBC (Bld) 13.5 % Low 15.0-45.0 [facility] Comment on above: Performed By: #### L [id number] ####Waredresser: PHILLY FRANCO ([phone])[facility])[address] [place] [address] MCH (RBC) [Entitic mass] 28.3 pg Normal 26.0-34.0 [facility] Comment on above: Performed By: #### L [id number] ####Waredresser: PHILLY FRANCO ([phone])[facility])[address] [place] [address] MCHC 31.8 % Normal 30.5-36.0 [facility] Comment on above: Performed By: #### L [id number] ####Waredresser: PHILLY FRANCO ([phone])[facility])[address] [place] [address] MCV (RBC) [Entitic vol] 89.2 fL Normal 77.0-99.0 [facility] Comment on above: Performed By: #### L [id number] ####Waredresser: PHILLY FRANCO ([phone])[facility])[address] [place] [address] Monocytes (Bld) [#/Vol] 1.0 10*3/uL High 0.0-0.9 [facility] Comment on above: Performed By: #### L [id number] ####Waredresser: PHILLY FRANCO ([phone])[facility])[address] [place] [address] Monocytes/100 WBC (Bld) 6.1 % Normal 5.0-13.0 [facility] Comment on above: Performed By: #### L [id number] ####Waredresser: PHILLY FRANCO ([phone])[facility])[address] [place] [address] NEUTROPHILS ABSOLUTE 12.1 10*3/uL High 1.8-7.5 [facility] Comment on above: Performed By: #### L [id number] ####Waredresser: PHILLY FRANCO ([phone])[facility])[address] [place] [address] Neutrophils/100 WBC (Bld) 75.9 % Normal 38.0-82.0 [facility] Comment on above: Performed By: #### L [id number] ####Waredresser: PHILLY FRANCO ([phone])[facility] ([facility])[address] [place] [address] NRBC 0.0 /100 WBCs Normal 0.0-2.0 [facility] Comment on above: Performed By: #### L [id number] ####Waredresser: PHILLY FRANCO ([phone])[facility])[address] [place] [address] Platelet mean volume (Bld) [Entitic vol] 10.1 fL Normal 9.0-12.7 [facility] Comment on above: Performed By: #### L [id number] ####Waredresser: PHILLY FRANCO ([phone])[facility])[address] [place] [address] Platelets (Bld) [#/Vol] 414 10*3/uL Normal 140-440 [facility] Comment on above: Performed By: #### L [id number] ####Waredresser: PHILLY FRANCO ([phone])[facility] ([facility])[address] [place] [address] RBC (Bld) [#/Vol] 2.40 10*6/uL Low 3.80-5.20 [facility] Comment on above: Performed By: #### L [id number] ####Waredresser: PHILLY FRANCO ([phone])[facility])[address] [place] [address] WBC (Bld) [#/Vol] 16.0 10*3/uL High 3.6-10.7 [facility] Comment on above: Performed By: #### L [id number] ####Waredresser: PHILLY FRANCO ([phone])[facility])[address] [place] [address] HEMOGLOBIN AND HEMATOCRIT, B LOODon 11-09-2024 Hematocrit (Bld) [Volume fraction] 25.9 % Low 35.0-47.0 [facility] Comment on above: Order Comment: Recom mend 1 hour post transfusion Performed By: #### L [id number] ####Waredresser: PHILLY FRANCO ([phone])[facility] ([facility])[address] [place] [address] Hemoglobin (Bld) [Mass/Vol] 8.6 g/dL Low 11.7-16.0 [facility] Comment on above: Order Comment: Recom mend 1 hour post transfusion Performed By: #### L [id number] ####Waredresser: PHILLY FRANCO ([phone])[facility] ([facility])[address] [place] [address] Hemoglobin (Bld) [Mass/Vol]O rdered By: Ct [place] on 11-09-2024 Hematocrit (Bld) [Volume fraction] 25.9 % Low 35.0 - 47.0 % [facility] Interpretation and review of laboratory results Abnormal [facility] Laboratory - Hematology and Cell countsOrdered By: Ct [place] on 11-09-2024 Hemoglobin (Bld) [Mass/Vol] 8.6 g/dL Low 11.7 - 16.0 g/dL [facility] No Panel Informationon 11-09 Blood Expiration Date [id number] S [facility] Crossmatch interpretation COMP [facility] Dispense Status Transfused [facility] Product Blood Type 5100 [facility] PRODUCT CODE [id number] [facility] ABO O [facility] Number [id number] [facility] RH Positive [facility] Volume 300 mL [facility] Blood Expiration Date [id number] S [facility] Crossmatch interpretation COMP [facility] Dispense Status Released from [employer] [facility] Dispense Status Transfused [facility] Product Blood Type 5100 [facility] [employer] PRODUCT CODE [id number] [facility] PRODUCT CODE [id number] [facility] ABO O [facility] Number [id number] [facility] Number [id number] [facility] RH Positive [facility] Volume 300 mL [facility] Nursing Noteon 11-09-2024 Nursing Note Normal [facility] Nursing Note Contacted Dr. Ciro rouse regarding pt screaming out in pain and having bit of confusion. Pt dressing saturated and changed again. Anjel H&H. Dialysis at bedside. Normal [facility] Nursing Note Normal [facility] Progress Noteon 11-09-2024 Progress Note Normal [facility] Progress Note Normal [facility] Progress Note Normal [facility] Progress Note Normal [facility] [id number] 11-08-2024 [id number] Auth obtained to return to [place] of [facility] Good until 11/11. MD updated. RN reports continued bleeding, low BS and pain this am. Will follow. Normal [facility] BASIC METABOLIC PANELon 08- Anion gap [Moles/Vol] 6 mmol/L Normal 3-13 [facility] Comment on above: Performed By: #### L AB15 ####Waredresser: PHILLY FRANCO ([phone])[address] Calcium [Mass/Vol] 7.2 mg/dL Low 8.8-10.0 [facility] Comment on above: Performed By: #### L AB15 ####Waredresser: PHILLY FRANCO ([phone])[facility])[address] [place] [address] Chloride [Moles/Vol] 103 mmol/L Normal 98-107 [facility] Comment on above: Performed By: #### L AB15 ####Waredresser: PHILLY [phone])[facility])[address] [place] [address] CO2 [Moles/Vol] 26 mmol/L Normal 23-31 [facility] Comment on above: Performed By: #### L AB15 ####Waredresser: PHILLY [phone])[facility])[address] [place] [address] Creatinine [Mass/Vol] 2.91 mg/dL High 0.57-1.11 [facility] Comment on above: Performed By: #### L AB15 ####Waredresser: PHILLY [phone])[facility])[address] [place] [address] GLOMERULAR FILTRATION RATE ML/MIN/1.73 SQ M.PREDICTED 16.4 mL/min/1.73m*2 Low >60.0 [facility] Comment on above: Result Comment: Calc ulation based on the Chronic Kidney Disease Epidemiology Collaboration (CKD-EPI) equation refit without adjustment for race Performed By: #### L AB15 ####Waredresser: PHILLY FRANCO ([phone])[facility])[address] [place] [address] Glucose [Mass/Vol] 67 mg/dL Low 82-115 [facility] Comment on above: Performed By: #### L AB15 ####Waredresser: PHILLY FRANCO ([phone])[facility])[address] [place] [address] Potassium [Moles/Vol] 4.0 mmol/L Normal 3.5-5.1 [facility] Comment on above: Result Comment: [facility] potassium values may be up to 0.5 mmol/L lower than serum values. Performed By: #### L AB15 ####Waredresser: PHILLY FRANCO ([phone])[facility])[address] [place] [address] Sodium [Moles/Vol] 135 mmol/L Low 136-145 [facility] Comment on above: Performed By: #### L AB15 ####Waredresser: PHILLY FRANCO ([phone])[facility])[address] [place] [address] Urea nitrogen [Mass/Vol] 18 mg/dL Normal 9-23 [facility] Comment on above: Performed By: #### L AB15 ####Waredresser: PHILLY FRANCO ([phone])[facility])[address] [place] [address] Basic metabolic 1998 panelon 11-08-2024 Anion gap [Moles/Vol] 6 mmol/L 3 - 13 mmol/L [facility] Calcium [Mass/Vol] 7.2 mg/dL Low 8.8 - 10. 0 mg/dL [facility] Chloride [Moles/Vol] 103 mmol/L 98 - 10 7 mmol/L [facility] CO2 [Moles/Vol] 26 mmol/L 23 - 31 mmol/L [facility] Creatinine [Mass/Vol] 2.91 mg/dL High 0.57 - 1.11 mg/dL [facility] GFR/1.73 sq M.predicted (S/P/Bld) [Vol rate/Area] 16.4 mL/min Low - PINF [facility] Glucose [Mass/Vol] 67 mg/dL Low 82 - 115 mg/dL [facility] Interpretation and review of laboratory results Abnormal [facility] Potassium [Moles/Vol] 4 mmol/L 3.5 - 5.1 mmol/L [facility] Sodium [Moles/Vol] 135 mmol/L Low 136 - 145 mmol/L [facility] Urea nitrogen [Mass/Vol] 18 mg/dL 9 - 23 mg/dL [facility] CBC W Auto Differential pane l (Bld)on 11-08-2024 Basophils (Bld) [#/Vol] 0.1 10*3/uL 0.0 - 0.2 10*3/uL [facility] Basophils/100 WBC (Bld) 0.9 % 0.0 - 2.0 % [facility] Eosinophils (Bld) [#/Vol] 0.5 10*3/uL 0.0 - 0.5 10*3/uL [facility] Eosinophils/100 WBC (Bld) 4.1 % 0.0 - 6.0 % [facility] Erythrocyte distribution width (RBC) [Ratio] 17 % High 11.5 - 15.0 % [facility] Hematocrit (Bld) [Volume fraction] 23.1 % Low 35.0 - 47.0 % [facility] Hemoglobin (Bld) [Mass/Vol] 7.5 g/dL Low 11.7 - 16.0 g/dL [facility] Immature granulocytes (Bld) [#/Vol] 0.1 10*3/uL High NINF - 0.1 10*3/uL [facility] Immature granulocytes/100 WBC (Bld) 0.5 % 0.0 - 2.0 % [facility] Interpretation and review of laboratory results Abnormal [facility] Lymphocytes (Bld) [#/Vol] 2.2 10*3/uL 1.0 - 4.3 10*3/uL [facility] Lymphocytes/100 WBC (Bld) 16.6 % 15.0 - 45.0 % [facility] MCH (RBC) [Entitic mass] 28.8 pg 26.0 - 34.0 pg [facility] MCHC (RBC) [Mass/Vol] 32.5 % 30.5 - 36.0 % [facility] MCV (RBC) [Entitic vol] 88.8 fL 77.0 - 99.0 fL [facility] Monocytes (Bld) [#/Vol] 0.9 10*3/uL 0.0 - 0.9 10*3/uL [facility] Monocytes/100 WBC (Bld) 6.9 % 5.0 - 13.0 % [facility] Neutrophils (Bld) [#/Vol] 9.2 10*3/uL High 1.8 - 7.5 10*3/uL [facility] Neutrophils/100 WBC (Bld) 71 % 38.0 - 82.0 % [facility] Nucleated RBC/100 WBC (Bld) [Ratio] 0 % [facility] Platelet mean volume (Bld) [Entitic vol] 10.3 fL 9.0 - 12.7 fL [facility] Platelets (Bld) [#/Vol] 376 10*3/uL 140 - 440 10*3/uL [facility] RBC (Bld) [#/Vol] 2.6 10*6/uL Low 3.80 - 5.2 0 10*6/uL [facility] WBC (Bld) [#/Vol] 13 10*3/uL High 3.6 - 10.7 10*3/uL [facility] CBC WITH AUTO DIFFERENTIALon 11-08-2024 Basophils (Bld) [#/Vol] 0.1 10*3/uL Normal 0.0-0.2 [facility] Comment on above: Performed By: #### L [id number] ####Waredresser: PHILLY FRANCO ([phone])[facility] ([address] Basophils/100 WBC (Bld) 0.9 % Normal 0.0-2.0 S [facility] Comment on above: Performed By: #### L [id number] ####Waredresser: PHILLY FRANCO ([phone])[facility])[address] [place] [address] Eosinophils (Bld) [#/Vol] 0.5 10*3/uL Normal 0.0-0.5 [facility] Comment on above: Performed By: #### L [id number] ####Waredresser: PHILLY FRANCO ([phone])[address] Eosinophils/100 WBC (Bld) 4.1 % Normal 0.0-6.0 [facility] Comment on above: Performed By: #### L [id number] ####Waredresser: PHILLY FRANCO ([phone])[address] Erythrocyte distribution width (RBC) [Ratio] 17.0 % High 11.5-15.0 [facility] Comment on above: Performed By: #### L [id number] ####Waredresser: PHILLY FRANCO ([phone])[address] Hematocrit (Bld) [Volume fraction] 23.1 % Low 35.0-47.0 [facility] Comment on above: Performed By: #### L [id number] ####Waredresser: PHILLY FRANCO ([phone])[address] Hemoglobin (Bld) [Mass/Vol] 7.5 g/dL Low 11.7-16.0 [facility] Comment on above: Performed By: #### L [id number] ####Waredresser: PHILLY FRANCO ([phone])[address] IMMATURE GRANS % 0.5 % Normal 0.0-2.0 [facility] Comment on above: Performed By: #### L [id number] ####Waredresser: PHILLY [phone])[facility])[address] [place] [address] IMMATURE GRANS ABSOLUTE 0.1 10*3/uL High <0.1 [facility] Comment on above: Performed By: #### L [id number] ####Waredresser: PHILLY FRANCO ([phone])[facility])[address] [place] [address] Lymphocytes (Bld) [#/Vol] 2.2 10*3/uL Normal 1.0-4.3 [facility] Comment on above: Performed By: #### L [id number] ####Waredresser: PHILLY FRANCO ([phone])[address] Lymphocytes/100 WBC (Bld) 16.6 % Normal 15.0-45.0 [facility] Comment on above: Performed By: #### L [id number] ####Waredresser: PHILLY FRANCO ([phone])[facility])[address] [place] [address] MCH (RBC) [Entitic mass] 28.8 pg Normal 26.0-34.0 [facility] Comment on above: Performed By: #### L [id number] ####Waredresser: PHILLY FRANCO ([phone])[facility])[address] [place] [address] MCHC 32.5 % Normal 30.5-36.0 [facility] Comment on above: Performed By: #### L [id number] ####Waredresser: PHILLY FRANCO ([phone])[facility])[address] [place] [address] MCV (RBC) [Entitic vol] 88.8 fL Normal 77.0-99.0 [facility] Comment on above: Performed By: #### L [id number] ####Waredresser: PHILLY FRANCO ([phone])[facility])[address] [place] [address] Monocytes (Bld) [#/Vol] 0.9 10*3/uL Normal 0.0-0.9 [facility] Comment on above: Performed By: #### L [id number] ####Waredresser: PHILLY FRANCO ([phone])[facility] ([facility])[address] [place] [address] Monocytes/100 WBC (Bld) 6.9 % Normal 5.0-13.0 [facility] Comment on above: Performed By: #### L [id number] ####Waredresser: PHILLY FRANCO ([phone])[facility] ([facility])[address] [place] [address] NEUTROPHILS ABSOLUTE 9.2 10*3/uL High 1.8-7.5 [facility] Comment on above: Performed By: #### L [id number] ####Waredresser: PHILLY FRANCO ([phone])[facility] ([facility])[address] [place] [address] Neutrophils/100 WBC (Bld) 71.0 % Normal 38.0-82.0 [facility] Comment on above: Performed By: #### L [id number] ####Waredresser: PHILLY FRANCO ([phone])[facility] ([facility])[address] [place] [address] NRBC 0.0 /100 WBCs Normal 0.0-2.0 [facility] Comment on above: Performed By: #### L [id number] ####Waredresser: PHILLY FRANCO ([phone])[facility] ([facility])[address] [place] [address] Platelet mean volume (Bld) [Entitic vol] 10.3 fL Normal 9.0-12.7 [facility] Comment on above: Performed By: #### L [id number] ####Waredresser: PHILLY FRANCO ([phone])[facility] ([facility])[address] [place] [address] Platelets (Bld) [#/Vol] 376 10*3/uL Normal 140-440 [facility] Comment on above: Performed By: #### L [id number] ####Waredresser: PHILLY FRANCO ([phone])[facility] ([facility])[address] [place] [address] RBC (Bld) [#/Vol] 2.60 10*6/uL Low 3.80-5.20 [facility] Comment on above: Performed By: #### L [id number] ####Waredresser: PHILLY FRANCO ([phone])[facility] ([facility])[address] [place] [address] WBC (Bld) [#/Vol] 13.0 10*3/uL High 3.6-10.7 [facility] Comment on above: Performed By: #### L [id number] ####Waredresser: PHILLY FRANCO ([phone])[facility] ([facility])[address] [place] [address] Laboratory - Chemistry and C hemistry - challengeon 11-08-2024 Glucose [Mass/Vol] 117 mg/dL High 70 - 100 mg/dL [facility] No Panel Informationon 11-08 Interpretation and review of laboratory results Abnormal [facility] Nursing Noteon 11-08-2024 Nursing Note Blood sugar 67 orang e juice given pt resting quietly , denies any s/s of hypoglycemia. Normal [facility] Progress Noteon 11-08-2024 Progress Note Normal [facility] Progress Note Normal [facility] [id number] 11-07-2024 [id number] Per [facility] aut h yesterday and that they started a new auth today. Normal [facility] [id number] Normal [facility] BASIC METABOLIC PANELon Anion gap [Moles/Vol] 11 mmol/L Normal 3-13 [facility] Comment on above: Performed By: #### L AB15 ####Waredresser: PHILLY FRANCO ([phone])[facility])[address] [place] [address] Calcium [Mass/Vol] 7.2 mg/dL Low 8.8-10.0 [facility] Comment on above: Performed By: #### L AB15 ####Waredresser: PHILLY FRANCO ([phone])[facility] [place] [address] Chloride [Moles/Vol] 105 mmol/L Normal 98-107 [facility] Comment on above: Performed By: #### L AB15 ####Waredresser: PHILLY FRANCO ([phone])[facility] [place] [address] [place] CO2 [Moles/Vol] 23 mmol/L Normal 23-31 [facility] Comment on above: Performed By: #### L AB15 ####Waredresser: PHILLY FRANCO ([phone])[facility] [place] [address] Creatinine [Mass/Vol] 4.35 mg/dL High 0.57-1.11 [facility] Comment on above: Performed By: #### L AB15 ####Waredresser: PHILLY FRANCO ([phone])[facility] ([facility])[address] [place] [address] [place] GLOMERULAR FILTRATION RATE ML/MIN/1.73 SQ M.PREDICTED 10.1 mL/min/1.73m*2 Low >60.0 [facility] Comment on above: Result Comment: Calc ulation based on the Chronic Kidney Disease Epidemiology Collaboration (CKD-EPI) equation refit without adjustment for race Performed By: #### L AB15 ####Waredresser: PHILLY FRANCO ([phone])[facility] [place] [address] [place] Glucose [Mass/Vol] 82 mg/dL Normal 82-115 [facility] Comment on above: Performed By: #### L AB15 ####Waredresser: PHILLY FRANCO ([phone])[facility] [place] [address] [place] Potassium [Moles/Vol] 4.8 mmol/L Normal 3.5-5.1 [facility] Comment on above: Result Comment: [facility] potassium values may be up to 0.5 mmol/L lower than serum values. Performed By: #### L AB15 ####Waredresser: PHILLY FRANCO ([phone])[facility] ([facility])[address] [place] [address] Sodium [Moles/Vol] 139 mmol/L Normal 136-145 [facility] Comment on above: Performed By: #### L AB15 ####Waredresser: PHILLY FRANCO ([phone])[facility] ([facility])[address] [place] [address] Urea nitrogen [Mass/Vol] 37 mg/dL High 9-23 [facility] Comment on above: Performed By: #### L AB15 ####Waredresser: PHILLY FRANCO ([phone])[facility] ([facility])[address] [place] [address] Bacteria identified Anaer cx Nom (Unsp spec)on 11-07-2024 Interpretation and review of laboratory results Normal [facility] Interpretation and review of laboratory results Normal [facility] Basic metabolic 1998 panelon 11-07-2024 Anion gap [Moles/Vol] 11 mmol/L 3 - 13 mmol/L [facility] Calcium [Mass/Vol] 7.2 mg/dL Low 8.8 - 10. 0 mg/dL [facility] Chloride [Moles/Vol] 105 mmol/L 98 - 10 7 mmol/L [facility] CO2 [Moles/Vol] 23 mmol/L 23 - 31 mmol/L [facility] Creatinine [Mass/Vol] 4.35 mg/dL High 0.57 - 1.11 mg/dL [facility] GFR/1.73 sq M.predicted (S/P/Bld) [Vol rate/Area] 10.1 mL/min Low - PINF [facility] Glucose [Mass/Vol] 82 mg/dL 82 - 115 mg/dL [facility] Interpretation and review of laboratory results Abnormal [facility] Potassium [Moles/Vol] 4.8 mmol/L 3.5 - 5.1 mmol/L [facility] Sodium [Moles/Vol] 139 mmol/L 136 - 145 mmol/L [facility] Urea nitrogen [Mass/Vol] 37 mg/dL High 9 - 23 mg/dL [facility] CBC W Auto Differential pane l (Bld)on 11-07-2024 Basophils (Bld) [#/Vol] 0.1 10*3/uL 0.0 - 0.2 10*3/uL [facility] Basophils/100 WBC (Bld) 1 % 0.0 - 2.0 % [facility] Eosinophils (Bld) [#/Vol] 0.7 10*3/uL High 0.0 - 0.5 10*3/uL [facility] Eosinophils/100 WBC (Bld) 4.7 % 0.0 - 6.0 % [facility] Erythrocyte distribution width (RBC) [Ratio] 17.5 % High 11.5 - 15.0 % [facility] Hematocrit (Bld) [Volume fraction] 23.6 % Low 35.0 - 47.0 % [facility] Hemoglobin (Bld) [Mass/Vol] 7.6 g/dL Low 11.7 - 16.0 g/dL [facility] Immature granulocytes (Bld) [#/Vol] 0.1 10*3/uL High NINF - 0.1 10*3/uL [facility] Immature granulocytes/100 WBC (Bld) 0.6 % 0.0 - 2.0 % [facility] Interpretation and review of laboratory results Abnormal [facility] Lymphocytes (Bld) [#/Vol] 3.1 10*3/uL 1.0 - 4.3 10*3/uL [facility] Lymphocytes/100 WBC (Bld) 22.2 % 15.0 - 45.0 % [facility] MCH (RBC) [Entitic mass] 28.6 pg 26.0 - 34.0 pg [facility] MCHC (RBC) [Mass/Vol] 32.2 % 30.5 - 36.0 % [facility] MCV (RBC) [Entitic vol] 88.7 fL 77.0 - 99.0 fL [facility] Monocytes (Bld) [#/Vol] 1 10*3/uL High 0.0 - 0.9 10*3/uL [facility] Monocytes/100 WBC (Bld) 6.8 % 5.0 - 13.0 % [facility] Neutrophils (Bld) [#/Vol] 9.1 10*3/uL High 1.8 - 7.5 10*3/uL [facility] Neutrophils/100 WBC (Bld) 64.7 % 38.0 - 82.0 % [facility] Nucleated RBC/100 WBC (Bld) [Ratio] 0 % [facility] Platelet mean volume (Bld) [Entitic vol] 10.5 fL 9.0 - 12.7 fL [facility] Platelets (Bld) [#/Vol] 377 10*3/uL 140 - 440 10*3/uL [facility] RBC (Bld) [#/Vol] 2.66 10*6/uL Low 3.80 - 5.2 0 10*6/uL [facility] WBC (Bld) [#/Vol] 14.1 10*3/uL High 3.6 - 10.7 10*3/uL [facility] CBC WITH AUTO DIFFERENTIALon 11-07-2024 Basophils (Bld) [#/Vol] 0.1 10*3/uL Normal 0.0-0.2 [facility] Comment on above: Performed By: #### L [id number] ####Waredresser: PHILLY FRANCO ([phone])[facility])[address] [place] [address] Basophils/100 WBC (Bld) 1.0 % Normal 0.0-2.0 [facility] Comment on above: Performed By: #### L [id number] ####Waredresser: PHILLY FRANCO ([phone])[facility])[address] [place] [address] [place] Eosinophils (Bld) [#/Vol] 0.7 10*3/uL High 0.0-0.5 [facility] Comment on above: Performed By: #### L [id number] ####Waredresser: PHILLY [id number])[facility])[address] [place] [address] [place] Eosinophils/100 WBC (Bld) 4.7 % Normal 0.0-6.0 [facility] Comment on above: Performed By: #### L [id number] ####Waredresser: PHILLY [phone])[facility])[address] [place] [address] Erythrocyte distribution width (RBC) [Ratio] 17.5 % High 11.5-15.0 [facility] Comment on above: Performed By: #### L [id number] ####Waredresser: PHILLY FRANCO ([phone])[facility])[address] [place] [address] Hematocrit (Bld) [Volume fraction] 23.6 % Low 35.0-47.0 [facility] Comment on above: Performed By: #### L [id number] ####Waredresser: PHILLY FRANCO ([phone])[facility])[address] [place] [address] Hemoglobin (Bld) [Mass/Vol] 7.6 g/dL Low 11.7-16.0 [facility] Comment on above: Performed By: #### L [id number] ####Waredresser: PHILLY FRANCO ([phone])[facility])[address] [place] [address] IMMATURE GRANS % 0.6 % Normal 0.0-2.0 [facility] Comment on above: Performed By: #### L [id number] ####Waredresser: PHILLY FRANCO ([phone])[facility])[address] [place] [address] IMMATURE GRANS ABSOLUTE 0.1 10*3/uL High <0.1 [facility] Comment on above: Performed By: #### L [id number] ####Waredresser: PHILLY FRANCO ([phone])[facility])[address] [place] [address] Lymphocytes (Bld) [#/Vol] 3.1 10*3/uL Normal 1.0-4.3 [facility] Comment on above: Performed By: #### L [id number] ####Waredresser: PHILLY FRANCO ([phone])[facility])[address] [place] [address] [place] Lymphocytes/100 WBC (Bld) 22.2 % Normal 15.0-45.0 [facility] Comment on above: Performed By: #### L [id number] ####Waredresser: PHILLY FRANCO ([phone])[facility])[address] [place] [address] MCH (RBC) [Entitic mass] 28.6 pg Normal 26.0-34.0 [facility] Comment on above: Performed By: #### L [id number] ####Waredresser: PHILLY FRANCO ([phone])[facility])[address] [place] [address] MCHC 32.2 % Normal 30.5-36.0 [facility] Comment on above: Performed By: #### L [id number] ####Waredresser: PHILLY FRANCO ([phone])[facility])[address] [place] [address] MCV (RBC) [Entitic vol] 88.7 fL Normal 77.0-99.0 [facility] Comment on above: Performed By: #### L [id number] ####Waredresser: PHILLY FRANCO ([phone])[facility])[address] [place] [address] Monocytes (Bld) [#/Vol] 1.0 10*3/uL High 0.0-0.9 [facility] Comment on above: Performed By: #### L [id number] ####Waredresser: PHILLY FRANCO ([phone])[facility])[address] [place] [address] Monocytes/100 WBC (Bld) 6.8 % Normal 5.0-13.0 [facility] Comment on above: Performed By: #### L [id number] ####Waredresser: PHILLY FRANCO ([phone])[facility])[address] [place] [address] NEUTROPHILS ABSOLUTE 9.1 10*3/uL High 1.8-7.5 [facility] Comment on above: Performed By: #### L [id number] ####Waredresser: PHILLY FRANCO ([phone])[facility] ([facility])[address] [place] [address] Neutrophils/100 WBC (Bld) 64.7 % Normal 38.0-82.0 [facility] Comment on above: Performed By: #### L [id number] ####Waredresser: PHILLY FRANCO ([phone])[facility])[address] [place] [address] NRBC 0.0 /100 WBCs Normal 0.0-2.0 [facility] Comment on above: Performed By: #### L [id number] ####Waredresser: PHILLY FRANCO ([phone])[facility])[address] [place] [address] Platelet mean volume (Bld) [Entitic vol] 10.5 fL Normal 9.0-12.7 [facility] Comment on above: Performed By: #### L [id number] ####Waredresser: PHILLY FRANCO ([phone])[facility] ([facility])[address] [place] [address] Platelets (Bld) [#/Vol] 377 10*3/uL Normal 140-440 [facility] Comment on above: Performed By: #### L [id number] ####Waredresser: PHILLY FRANCO ([phone])[facility])[address] [place] [address] RBC (Bld) [#/Vol] 2.66 10*6/uL Low 3.80-5.20 [facility] Comment on above: Performed By: #### L [id number] ####Waredresser: PHILLY FRANCO ([phone])[facility])[address] [place] [address] WBC (Bld) [#/Vol] 14.1 10*3/uL High 3.6-10.7 [facility] Comment on above: Performed By: #### L [id number] ####Waredresser: PHILLY FRANCO ([phone])[facility] ([facility])[address] [place] [address] Laboratory - Microbiology an d Antimicrobial susceptibilityon 11-07-2024 Bacteria identified Anaer cx Nom (Unsp spec) No growth at 5 days [facility] Bacteria identified Anaer cx Nom (Unsp spec) No growth at 5 days [facility] Nursing Noteon 11-07-2024 Nursing Note Normal [facility] Progress Noteon 11-07-2024 Progress Note Normal [facility] Progress Note Normal [facility] Progress Note Normal [facility] Progress Note Normal [facility] [id number] 11-06-2024 [id number] Updated notes sent t o [facility] per [facility] request. Await review and response regarding ability to accept. TCC notified. [facility] [phone] [employer] messaged to send updates to [facility] with request to start auth to return. [facility] [phone] Normal [facility] BASIC METABOLIC PANELon Anion gap [Moles/Vol] 9 mmol/L Normal 3-13 [facility] Comment on above: Performed By: #### L [id number] ####Waredresser: PHILLY FRANCO ([phone])[facility] ([facility])[address] [place] [address] Calcium [Mass/Vol] 7.3 mg/dL Low 8.8-10.0 [facility] Comment on above: Performed By: #### L [id number] ####Waredresser: PHILLY FRANCO ([phone])[facility] ([facility])[address] [place] [address] Basic metabolic 1998 panelon 11-06-2024 Anion gap [Moles/Vol] 9 mmol/L 3 - 13 mmol/L [facility] Calcium [Mass/Vol] 7.3 mg/dL Low 8.8 - 10. 0 mg/dL [facility] Chloride [Moles/Vol] 105 mmol/L 98 - 10 7 mmol/L [facility] CO2 [Moles/Vol] 24 mmol/L 23 - 31 mmol/L [facility] Creatinine [Mass/Vol] 3.5 mg/dL High 0.57 - 1.11 mg/dL [facility] GFR/1.73 sq M.predicted (S/P/Bld) [Vol rate/Area] 13.2 mL/min Low - PINF [facility] Glucose [Mass/Vol] 123 mg/dL High 82 - 115 mg/dL [facility] Interpretation and review of laboratory results Abnormal [facility] Potassium [Moles/Vol] 4.7 mmol/L 3.5 - 5.1 mmol/L [facility] Sodium [Moles/Vol] 138 mmol/L 136 - 145 mmol/L [facility] Urea nitrogen [Mass/Vol] 24 mg/dL High 9 - 23 mg/dL [facility] CBC W Auto Differential pane l (Bld)on 11-06-2024 Basophils (Bld) [#/Vol] 0.1 10*3/uL 0.0 - 0.2 10*3/uL [facility] Basophils/100 WBC (Bld) 0.6 % 0.0 - 2.0 % [facility] Eosinophils (Bld) [#/Vol] 0 10*3/uL 0.0 - 0.5 10*3/uL [facility] Eosinophils/100 WBC (Bld) 0.1 % 0.0 - 6.0 % [facility] Erythrocyte distribution width (RBC) [Ratio] 17.4 % High 11.5 - 15.0 % [facility] Hematocrit (Bld) [Volume fraction] 27.6 % Low 35.0 - 47.0 % [facility] Hemoglobin (Bld) [Mass/Vol] 9.3 g/dL Low 11.7 - 16.0 g/dL [facility] Immature granulocytes (Bld) [#/Vol] 0.1 10*3/uL High NINF - 0.1 10*3/uL [facility] Immature granulocytes/100 WBC (Bld) 0.6 % 0.0 - 2.0 % [facility] Interpretation and review of laboratory results Abnormal [facility] Lymphocytes (Bld) [#/Vol] 2.3 10*3/uL 1.0 - 4.3 10*3/uL [facility] Lymphocytes/100 WBC (Bld) 14.8 % Low 15.0 - 45.0 % [facility] MCH (RBC) [Entitic mass] 28.8 pg 26.0 - 34.0 pg [facility] MCHC (RBC) [Mass/Vol] 33.7 % 30.5 - 36.0 % [facility] MCV (RBC) [Entitic vol] 85.4 fL 77.0 - 99.0 fL [facility] Monocytes (Bld) [#/Vol] 1 10*3/uL High 0.0 - 0.9 10*3/uL [facility] Monocytes/100 WBC (Bld) 6.1 % 5.0 - 13.0 % [facility] Neutrophils (Bld) [#/Vol] 12.2 10*3/uL High 1.8 - 7.5 10*3/uL [facility] Neutrophils/100 WBC (Bld) 77.8 % 38.0 - 82.0 % [facility] Nucleated RBC/100 WBC (Bld) [Ratio] 0 % [facility] Platelet mean volume (Bld) [Entitic vol] 10.6 fL 9.0 - 12.7 fL [facility] Platelets (Bld) [#/Vol] 388 10*3/uL 140 - 440 10*3/uL [facility] RBC (Bld) [#/Vol] 3.23 10*6/uL Low 3.80 - 5.2 0 10*6/uL [facility] WBC (Bld) [#/Vol] 15.6 10*3/uL High 3.6 - 10.7 10*3/uL [facility] Progress Noteon 11-06-2024 Progress Note Normal [facility] Progress Note Normal [facility] Progress Note Normal [facility] Progress Note Normal [facility] Progress Note Normal [facility] Bacteria identified Aer cx N om (Unsp spec)on 11-05-2024 Gram Stain Result Moderate Polymorphonuclear leukocytes per low power field [facility] Gram Stain Result No organisms seen [facility] Bacteria identified Aer cx N om (Unsp spec)Ordered By: Te Laguna on 11-05-2024 Gram Stain Result Few Polymorphonuclea r leukocytes per low power field [facility] Gram Stain Result No organisms seen [facility] Basic metabolic 1998 panelon 11-05-2024 Anion gap [Moles/Vol] 9 mmol/L 3 - 13 mmol/L [facility] Calcium [Mass/Vol] 7.3 mg/dL Low 8.8 - 10. 0 mg/dL [facility] Chloride [Moles/Vol] 104 mmol/L 98 - 10 7 mmol/L [facility] CO2 [Moles/Vol] 25 mmol/L 23 - 31 mmol/L [facility] Creatinine [Mass/Vol] 2.53 mg/dL High 0.57 - 1.11 mg/dL [facility] GFR/1.73 sq M.predicted (S/P/Bld) [Vol rate/Area] 19.4 mL/min Low - PINF [facility] Glucose [Mass/Vol] 66 mg/dL Low 82 - 115 mg/dL [facility] Interpretation and review of laboratory results Abnormal [facility] Potassium [Moles/Vol] 3.8 mmol/L 3.5 - 5.1 mmol/L [facility] Sodium [Moles/Vol] 138 mmol/L 136 - 145 mmol/L [facility] Urea nitrogen [Mass/Vol] 13 mg/dL 9 - 23 mg/dL [facility] Blood type and Crossmatch pa kojo (Bld)on 11-05-2024 ABO group Nom (Bld) O [facility] Blood group antibody screen GEL Ql Negative [facility] D Ag Ql (RBC) Positive [facility] CBC W Auto Differential pane l (Bld)Ordered By: Beatriz Morales on 11-05-2024 Basophils (Bld) [#/Vol] 0.1 10*3/uL 0.0 - 0.2 10*3/uL [facility] Basophils/100 WBC (Bld) 0.8 % 0.0 - 2.0 % [facility] Eosinophils (Bld) [#/Vol] 0.8 10*3/uL High 0.0 - 0.5 10*3/uL [facility] Eosinophils/100 WBC (Bld) 5.1 % 0.0 - 6.0 % [facility] Erythrocyte distribution width (RBC) [Ratio] 17.3 % High 11.5 - 15.0 % [facility] Hematocrit (Bld) [Volume fraction] 20.3 % Low 35.0 - 47.0 % [facility] Hemoglobin (Bld) [Mass/Vol] 6.6 g/dL Critically low 11.7 - 16.0 g/dL [facility] Immature granulocytes (Bld) [#/Vol] 0.1 10*3/uL High NINF - 0.1 10*3/uL [facility] Immature granulocytes/100 WBC (Bld) 0.6 % 0.0 - 2.0 % [facility] Interpretation and review of laboratory results Abnormal [facility] Lymphocytes (Bld) [#/Vol] 2.2 10*3/uL 1.0 - 4.3 10*3/uL [facility] Lymphocytes/100 WBC (Bld) 14.8 % Low 15.0 - 45.0 % [facility] MCH (RBC) [Entitic mass] 28.4 pg 26.0 - 34.0 pg [facility] MCHC (RBC) [Mass/Vol] 32.5 % 30.5 - 36.0 % [facility] MCV (RBC) [Entitic vol] 87.5 fL 77.0 - 99.0 fL [facility] Monocytes (Bld) [#/Vol] 0.9 10*3/uL 0.0 - 0.9 10*3/uL [facility] Monocytes/100 WBC (Bld) 6.2 % 5.0 - 13.0 % [facility] Neutrophils (Bld) [#/Vol] 10.6 10*3/uL High 1.8 - 7.5 10*3/uL [facility] Neutrophils/100 WBC (Bld) 72.5 % 38.0 - 82.0 % [facility] Nucleated RBC/100 WBC (Bld) [Ratio] 0 % [facility] Platelet mean volume (Bld) [Entitic vol] 10.9 fL 9.0 - 12.7 fL [facility] Platelets (Bld) [#/Vol] 391 10*3/uL 140 - 440 10*3/uL [facility] RBC (Bld) [#/Vol] 2.32 10*6/uL Low 3.80 - 5.2 0 10*6/uL [facility] WBC (Bld) [#/Vol] 14.6 10*3/uL High 3.6 - 10.7 10*3/uL [facility] Hemoglobin (Bld) [Mass/Vol]O rdered By: Emily Hernández on 11-05-2024 Hematocrit (Bld) [Volume fraction] 28.2 % Low 35.0 - 47.0 % [facility] Interpretation and review of laboratory results Abnormal [facility] Hemoglobin (Bld) [Mass/Vol]o n 11-05-2024 Hematocrit (Bld) [Volume fraction] 18 % Low 35.0 - 47.0 % [facility] Interpretation and review of laboratory results Abnormal [facility] Laboratory - Hematology and Cell countsOrdered By: Emily Hernández on 11-05-2024 Hemoglobin (Bld) [Mass/Vol] 9.4 g/dL Low 11.7 - 16.0 g/dL [facility] Laboratory - Hematology and Cell countson 11-05-2024 Hemoglobin (Bld) [Mass/Vol] 5.8 g/dL Critically low 11.7 - 16.0 g/dL [facility] Laboratory - Microbiology an d Antimicrobial susceptibilityon 11-05-2024 Bacteria identified Aer cx Nom (Unsp spec) No growth at 72 hours [facility] Laboratory - Microbiology an d Antimicrobial susceptibilityOrdered By: Te Laguna on 11-05-2024 Bacteria identified Aer cx Nom (Unsp spec) No growth at 72 hours [facility] No Panel Informationon 11-05 Blood Expiration Date [id number] [facility] Crossmatch interpretation COMP [facility] Dispense Status Transfused [facility] Product Blood Type 5100 [facility] PRODUCT CODE [id number] [facility] ABO O [facility] Number [id number] [facility] RH Positive [facility] Volume 300 mL [facility] Blood Expiration Date [id number] [facility] Crossmatch interpretation COMP [facility] Dispense Status Released from Crossmatch [facility] Product Blood Type 5100 [facility] PRODUCT CODE [id number] [facility] ABO O [facility] Unit Number [id number] [facility] RH Positive [facility] Unit Volume 300 mL [facility] Basic metabolic 1998 panelon 11-04-2024 Anion gap [Moles/Vol] 11 mmol/L 3 - 13 mmol/L [facility] Calcium [Mass/Vol] 7.2 mg/dL Low 8.8 - 10. 0 mg/dL [facility] Chloride [Moles/Vol] 104 mmol/L 98 - 10 7 mmol/L [facility] CO2 [Moles/Vol] 24 mmol/L 23 - 31 mmol/L [facility] Creatinine [Mass/Vol] 3.47 mg/dL High 0.57 - 1.11 mg/dL [facility] GFR/1.73 sq M.predicted (S/P/Bld) [Vol rate/Area] 13.3 mL/min Low - PINF [facility] Glucose [Mass/Vol] 79 mg/dL Low 82 - 115 mg/dL [facility] Interpretation and review of laboratory results Abnormal [facility] Potassium [Moles/Vol] 4 mmol/L 3.5 - 5.1 mmol/L [facility] Sodium [Moles/Vol] 139 mmol/L 136 - 145 mmol/L [facility] Urea nitrogen [Mass/Vol] 25 mg/dL High 9 - 23 mg/dL [facility] CBC W Auto Differential pane l (Bld)on 11-04-2024 Basophils (Bld) [#/Vol] 0.1 10*3/uL 0.0 - 0.2 10*3/uL [facility] Basophils/100 WBC (Bld) 0.8 % 0.0 - 2.0 % [facility] Eosinophils (Bld) [#/Vol] 0.5 10*3/uL 0.0 - 0.5 10*3/uL [facility] Eosinophils/100 WBC (Bld) 3.1 % 0.0 - 6.0 % [facility] Erythrocyte distribution width (RBC) [Ratio] 18 % High 11.5 - 15.0 % [facility] Hematocrit (Bld) [Volume fraction] 23 % Low 35.0 - 47.0 % [facility] Hemoglobin (Bld) [Mass/Vol] 7.7 g/dL Low 11.7 - 16.0 g/dL [facility] Immature granulocytes (Bld) [#/Vol] 0.1 10*3/uL High NINF - 0.1 10*3/uL [facility] Immature granulocytes/100 WBC (Bld) 0.6 % 0.0 - 2.0 % [facility] Interpretation and review of laboratory results Abnormal [facility] Lymphocytes (Bld) [#/Vol] 2.5 10*3/uL 1.0 - 4.3 10*3/uL [facility] Lymphocytes/100 WBC (Bld) 15.9 % 15.0 - [...] 15.5 10*3/uL High 3.6 - 10.7 10*3/uL [facility] CBC W Auto Differential pane l (Bld)Ordered By: Andre Ervin on 11-04-2024 Basophils (Bld) [#/Vol] 0.1 10*3/uL 0.0 - 0.2 10*3/uL [facility] Basophils/100 WBC (Bld) 0.8 % 0.0 - 2.0 % [facility] Eosinophils (Bld) [#/Vol] 0.5 10*3/uL 0.0 - 0.5 10*3/uL [facility] Eosinophils/100 WBC (Bld) 2.7 % 0.0 - 6.0 % [facility] Erythrocyte distribution width (RBC) [Ratio] 18.3 % High 11.5 - 15.0 % [facility] Hematocrit (Bld) [Volume fraction] 20.2 % Low 35.0 - 47.0 % [facility] Hemoglobin (Bld) [Mass/Vol] 6.7 g/dL Critically low 11.7 - 16.0 g/dL [facility] Immature granulocytes (Bld) [#/Vol] 0.1 10*3/uL High NINF - 0.1 10*3/uL [facility] Immature granulocytes/100 WBC (Bld) 0.8 % 0.0 - 2.0 % [facility] Interpretation and review of laboratory results Abnormal [facility] Lymphocytes (Bld) [#/Vol] 2.8 10*3/uL 1.0 - 4.3 10*3/uL [facility] Lymphocytes/100 WBC (Bld) 16 % 15.0 - 45.0 % [facility] MCH (RBC) [Entitic mass] 28.5 pg 26.0 - 34.0 pg [facility] MCHC (RBC) [Mass/Vol] 33.2 % 30.5 - 36.0 % [facility] MCV (RBC) [Entitic vol] 86 fL 77.0 - 99.0 fL [facility] Monocytes (Bld) [#/Vol] 1 10*3/uL High 0.0 - 0.9 10*3/uL [facility] Monocytes/100 WBC (Bld) 5.9 % 5.0 - 13.0 % [facility] Neutrophils (Bld) [#/Vol] 12.7 10*3/uL High 1.8 - 7.5 10*3/uL [facility] Neutrophils/100 WBC (Bld) 73.8 % 38.0 - 82.0 % [facility] Nucleated RBC/100 WBC (Bld) [Ratio] 0 % [facility] [employer] Platelet mean volume (Bld) [Entitic vol] 10.7 fL 9.0 - 12.7 fL [facility] Platelets (Bld) [#/Vol] 394 10*3/uL 140 - 440 10*3/uL [facility] RBC (Bld) [#/Vol] 2.35 10*6/uL Low 3.80 - 5.2 0 10*6/uL [facility] WBC (Bld) [#/Vol] 17.2 10*3/uL High 3.6 - 10.7 10*3/uL [facility] Laboratory - Chemistry and C hemistry - challengeon 11-04-2024 Glucose [Mass/Vol] 93 mg/dL 70 - 100 mg/dL [facility] Glucose [Mass/Vol] 93 mg/dL 70 - 100 mg/dL [facility] No Panel Informationon 11-04 Interpretation and review of laboratory results Normal [facility] Interpretation and review of laboratory results Normal [facility] Basic metabolic 1998 panelOr dered By: Shauna Ayon on 11-03-2024 Anion gap [Moles/Vol] 12 mmol/L 3 - 13 mmol/L [facility] Calcium [Mass/Vol] 7.4 mg/dL Low 8.8 - 10. 0 mg/dL [facility] Chloride [Moles/Vol] 103 mmol/L 98 - 10 7 mmol/L [facility] CO2 [Moles/Vol] 21 mmol/L Low 23 - 31 mmol/L [facility] Creatinine [Mass/Vol] 2.68 mg/dL High 0.57 - 1.11 mg/dL [facility] GFR/1.73 sq M.predicted (S/P/Bld) [Vol rate/Area] 18.1 mL/min Low - PINF [facility] Glucose [Mass/Vol] 76 mg/dL Low 82 - 115 mg/dL [facility] Interpretation and review of laboratory results Abnormal [facility] Potassium [Moles/Vol] 3.9 mmol/L 3.5 - 5.1 mmol/L [facility] Sodium [Moles/Vol] 136 mmol/L 136 - 145 mmol/L [facility] Urea nitrogen [Mass/Vol] 16 mg/dL 9 - 23 mg/dL [facility] CBC W Auto Differential pane l (Bld)on 11-03-2024 Basophils (Bld) [#/Vol] 0.1 10*3/uL 0.0 - 0.2 10*3/uL [facility] Basophils/100 WBC (Bld) 0.6 % 0.0 - 2.0 % [facility] Eosinophils (Bld) [#/Vol] 0.2 10*3/uL 0.0 - 0.5 10*3/uL [facility] Eosinophils/100 WBC (Bld) 0.9 % 0.0 - 6.0 % [facility] Erythrocyte distribution width (RBC) [Ratio] 18.3 % High 11.5 - 15.0 % [facility] Hematocrit (Bld) [Volume fraction] 18.6 % Low 35.0 - 47.0 % [facility] Hemoglobin (Bld) [Mass/Vol] 6.1 g/dL Critically low 11.7 - 16.0 g/dL [facility] Immature granulocytes (Bld) [#/Vol] 0.1 10*3/uL High NINF - 0.1 10*3/uL [facility] Immature granulocytes/100 WBC (Bld) 0.6 % 0.0 - 2.0 % [facility] Interpretation and review of laboratory results Abnormal [facility] Lymphocytes (Bld) [#/Vol] 3.6 10*3/uL 1.0 - 4.3 10*3/uL [facility] Lymphocytes/100 WBC (Bld) 18.7 % 15.0 - 45.0 % [facility] MCH (RBC) [Entitic mass] 28.9 pg 26.0 - 34.0 pg [facility] MCHC (RBC) [Mass/Vol] 32.8 % 30.5 - 36.0 % [facility] MCV (RBC) [Entitic vol] 88.2 fL 77.0 - 99.0 fL [facility] Monocytes (Bld) [#/Vol] 1.4 10*3/uL High 0.0 - 0.9 10*3/uL [facility] Monocytes/100 WBC (Bld) 7.3 % 5.0 - 13.0 % [facility] Neutrophils (Bld) [#/Vol] 13.8 10*3/uL High 1.8 - 7.5 10*3/uL [facility] Neutrophils/100 WBC (Bld) 71.9 % 38.0 - 82.0 % [facility] Nucleated RBC/100 WBC (Bld) [Ratio] 0 % [facility] Platelet mean volume (Bld) [Entitic vol] 10.7 fL 9.0 - 12.7 fL [facility] Platelets (Bld) [#/Vol] 407 10*3/uL 140 - 440 10*3/uL [facility] RBC (Bld) [#/Vol] 2.11 10*6/uL Low 3.80 - 5.2 0 10*6/uL [facility] WBC (Bld) [#/Vol] 19.2 10*3/uL High 3.6 - 10.7 10*3/uL [facility] Hemoglobin (Bld) [Mass/Vol]O rdered By: Christy Carnes on 11-03-2024 Hematocrit (Bld) [Volume fraction] 26 % Low 35.0 - 47.0 % [facility] Interpretation and review of laboratory results Abnormal [facility] Laboratory - Chemistry and C hemistry - challengeon 11-03-2024 Glucose [Mass/Vol] 101 mg/dL High 70 - 100 mg/dL [facility] Glucose [Mass/Vol] 112 mg/dL High 70 - 100 mg/dL [facility] Glucose [Mass/Vol] 100 mg/dL 70 - 100 mg/dL [facility] Glucose [Mass/Vol] 95 mg/dL 70 - 100 mg/dL [facility] Laboratory - Hematology and Cell countsOrdered By: Christy Carnes on 11-03-2024 Hemoglobin (Bld) [Mass/Vol] 8.6 g/dL Low 11.7 - 16.0 g/dL [facility] No Panel Informationon 11-03 Interpretation and review of laboratory results Abnormal [facility] Interpretation and review of laboratory results Abnormal [facility] Blood Expiration Date [id number] [facility] Crossmatch interpretation COMP [facility] Dispense Status Transfused [facility] Product Blood Type 5100 [facility] PRODUCT CODE [id number] [facility] PRODUCT CODE [id number] [facility] Unit ABO O [facility] Unit Number [id number] [facility] RH Positive [facility] Volume 227 mL [facility] Unit Volume 285 mL [facility] Interpretation and review of laboratory results Normal [facility] [place] Interpretation and review of laboratory results Normal [facility] Basic metabolic 1998 panelon 11-02-2024 Anion gap [Moles/Vol] 11 mmol/L 3 - 13 mmol/L [facility] Calcium [Mass/Vol] 7.5 mg/dL Low 8.8 - 10. 0 mg/dL [facility] Chloride [Moles/Vol] 105 mmol/L 98 - 10 7 mmol/L [facility] CO2 [Moles/Vol] 20 mmol/L Low 23 - 31 mmol/L [facility] Creatinine [Mass/Vol] 3.99 mg/dL High 0.57 - 1.11 mg/dL [facility] GFR/1.73 sq M.predicted (S/P/Bld) [Vol rate/Area] 11.3 mL/min Low - PINF [facility] Glucose [Mass/Vol] 78 mg/dL Low 82 - 115 mg/dL [facility] Interpretation and review of laboratory results Abnormal [facility] Potassium [Moles/Vol] 5 mmol/L 3.5 - 5.1 mmol/L [facility] Sodium [Moles/Vol] 136 mmol/L 136 - 145 mmol/L [facility] Urea nitrogen [Mass/Vol] 23 mg/dL 9 - 23 mg/dL [facility] Anion gap [Moles/Vol] 12 mmol/L 3 - 13 mmol/L [facility] Calcium [Mass/Vol] 7.7 mg/dL Low 8.8 - 10. 0 mg/dL [facility] Chloride [Moles/Vol] 105 mmol/L 98 - 10 7 mmol/L [facility] CO2 [Moles/Vol] 21 mmol/L Low 23 - 31 mmol/L [facility] Creatinine [Mass/Vol] 4.11 mg/dL High 0.57 - 1.11 mg/dL [facility] GFR/1.73 sq M.predicted (S/P/Bld) [Vol rate/Area] 10.9 mL/min Low - PINF [facility] Glucose [Mass/Vol] 64 mg/dL Low 82 - 115 mg/dL [facility] Interpretation and review of laboratory results Abnormal [facility] Potassium [Moles/Vol] 4.8 mmol/L 3.5 - 5.1 mmol/L [facility] Sodium [Moles/Vol] 138 mmol/L 136 - 145 mmol/L [facility] Urea nitrogen [Mass/Vol] 20 mg/dL 9 - 23 mg/dL [facility] CBC W Auto Differential pane l (Bld)on 11-02-2024 Basophils (Bld) [#/Vol] 0.2 10*3/uL 0.0 - 0.2 10*3/uL [facility] Basophils/100 WBC (Bld) 0.7 % 0.0 - 2.0 % [facility] Eosinophils (Bld) [#/Vol] 0.8 10*3/uL High 0.0 - 0.5 10*3/uL [facility] Eosinophils/100 WBC (Bld) 3.6 % 0.0 - 6.0 % [facility] Erythrocyte distribution width (RBC) [Ratio] 16.3 % High 11.5 - 15.0 % [facility] Hematocrit (Bld) [Volume fraction] 22.9 % Low 35.0 - 47.0 % [facility] Hemoglobin (Bld) [Mass/Vol] 7.4 g/dL Low 11.7 - 16.0 g/dL [facility] Immature granulocytes (Bld) [#/Vol] 0.1 10*3/uL High NINF - 0.1 10*3/uL [facility] Immature granulocytes/100 WBC (Bld) 0.6 % 0.0 - 2.0 % [facility] Interpretation and review of laboratory results Abnormal [facility] Lymphocytes (Bld) [#/Vol] 3.3 10*3/uL 1.0 - 4.3 10*3/uL [facility] Lymphocytes/100 WBC (Bld) 14.8 % Low 15.0 - 45.0 % [facility] MCH (RBC) [Entitic mass] 29.8 pg 26.0 - 34.0 pg [facility] MCHC (RBC) [Mass/Vol] 32.3 % 30.5 - 36.0 % [facility] MCV (RBC) [Entitic vol] 92.3 fL 77.0 - 99.0 fL [facility] Monocytes (Bld) [#/Vol] 1.2 10*3/uL High 0.0 - 0.9 10*3/uL [facility] Monocytes/100 WBC (Bld) 5.6 % 5.0 - 13.0 % [facility] Neutrophils (Bld) [#/Vol] 16.4 10*3/uL High 1.8 - 7.5 10*3/uL [facility] Neutrophils/100 WBC (Bld) 74.7 % 38.0 - 82.0 % [facility] Nucleated RBC/100 WBC (Bld) [Ratio] 0 % [facility] Platelet mean volume (Bld) [Entitic vol] 10.8 fL 9.0 - 12.7 fL [facility] Platelets (Bld) [#/Vol] 530 10*3/uL High 140 - 440 10*3/uL [facility] RBC (Bld) [#/Vol] 2.48 10*6/uL Low 3.80 - 5.2 0 10*6/uL [facility] WBC (Bld) [#/Vol] 21.9 10*3/uL High 3.6 - 10.7 10*3/uL [facility] Hemoglobin (Bld) [Mass/Vol]O rdered By: Rimma Galloway on 11-02-2024 Hematocrit (Bld) [Volume fraction] 24.1 % Low 35.0 - 47.0 % [facility] Interpretation and review of laboratory results Abnormal [facility] Hemoglobin (Bld) [Mass/Vol]O rdered By: Mihaela Miller on 11-02-2024 Hematocrit (Bld) [Volume fraction] 20 % Low 35.0 - 47.0 % [facility] Interpretation and review of laboratory results Abnormal [facility] Laboratory - Chemistry and C hemistry - challengeon 11-02-2024 Glucose [Mass/Vol] 98 mg/dL 70 - 100 mg/dL [facility] Glucose [Mass/Vol] 103 mg/dL High 70 - 100 mg/dL [facility] Glucose [Mass/Vol] 96 mg/dL 70 - 100 mg/dL [facility] Glucose [Mass/Vol] 73 mg/dL 70 - 100 mg/dL [facility] Laboratory - Hematology and Cell countsOrdered By: Rimma Galloway on 11-02-2024 Hemoglobin (Bld) [Mass/Vol] 8 g/dL Low 11.7 - 16.0 g/dL [facility] Laboratory - Hematology and Cell countsOrdered By: Mihaela Miller on 11-02-2024 Hemoglobin (Bld) [Mass/Vol] 6.3 g/dL Critically low 11.7 - 16.0 g/dL [facility] No Panel Informationon 11-02 Interpretation and review of laboratory results Normal [facility] Interpretation and review of laboratory results Abnormal [facility] Interpretation and review of laboratory results Normal [facility] Interpretation and review of laboratory results Normal [facility] Basic metabolic 1998 panelOr dered By: Tameka Can on 11-01-2024 Anion gap [Moles/Vol] 13 mmol/L 3 - 13 mmol/L [facility] Calcium [Mass/Vol] 7.7 mg/dL Low 8.8 - 10. 0 mg/dL [facility] Chloride [Moles/Vol] 104 mmol/L 98 - 10 7 mmol/L [facility] CO2 [Moles/Vol] 22 mmol/L Low 23 - 31 mmol/L [facility] Creatinine [Mass/Vol] 2.98 mg/dL High 0.57 - 1.11 mg/dL [facility] GFR/1.73 sq M.predicted (S/P/Bld) [Vol rate/Area] 16 mL/min Low - PINF [facility] Glucose [Mass/Vol] 67 mg/dL Low 82 - 115 mg/dL [facility] Interpretation and review of laboratory results Abnormal [facility] Potassium [Moles/Vol] 4.6 mmol/L 3.5 - 5.1 mmol/L [facility] Sodium [Moles/Vol] 139 mmol/L 136 - 145 mmol/L [facility] Urea nitrogen [Mass/Vol] 14 mg/dL 9 - 23 mg/dL [facility] Blood type and Crossmatch fredi mccarthyl (Bld)on 11-01-2024 ABO group Nom (Bld) O [facility] Blood group antibody screen GEL Ql Negative [facility] D Ag Ql (RBC) Positive [facility] CBC W Auto Differential pane l (Bld)Ordered By: Mak Hobbs on 11-01-2024 Erythrocyte distribution width (RBC) [Ratio] 16.6 % High 11.5 - 15.0 % [facility] Hematocrit (Bld) [Volume fraction] 25.2 % Low 35.0 - 47.0 % [facility] Hemoglobin (Bld) [Mass/Vol] 8 g/dL Low 11.7 - 16.0 g/dL [facility] Interpretation and review of laboratory results Abnormal [facility] MCH (RBC) [Entitic mass] 29.1 pg 26.0 - 34.0 pg [facility] MCHC (RBC) [Mass/Vol] 31.7 % 30.5 - 36.0 % [facility] MCV (RBC) [Entitic vol] 91.6 fL 77.0 - 99.0 fL [facility] Platelet mean volume (Bld) [Entitic vol] 10.3 fL 9.0 - 12.7 fL [facility] Platelets (Bld) [#/Vol] 557 10*3/uL High 140 - 440 10*3/uL [facility] RBC (Bld) [#/Vol] 2.75 10*6/uL Low 3.80 - 5.2 0 10*6/uL [facility] WBC (Bld) [#/Vol] 20.4 10*3/uL High 3.6 - 10.7 10*3/uL [facility] Laboratory - Chemistry and C hemistry - challengeon 11-01-2024 Glucose [Mass/Vol] 79 mg/dL 70 - 100 mg/dL [facility] Glucose [Mass/Vol] 75 mg/dL 70 - 100 mg/dL [facility] Glucose [Mass/Vol] 79 mg/dL 70 - 100 mg/dL [facility] Glucose [Mass/Vol] 81 mg/dL 70 - 100 mg/dL [facility] Glucose [Mass/Vol] 68 mg/dL Low 70 - 100 mg/dL [facility] Glucose [Mass/Vol] 78 mg/dL 70 - 100 mg/dL [facility] Laboratory - Coagulationon 0 11-01-2024 PT Coag (Bld) [Time] 11.8 s 9.0 - 12.0 s [facility] Laboratory - Hematology and Cell countson 11-01-2024 Basophils (Bld) [#/Vol] 0.2 10*3/uL 0.0 - 0.2 10*3/uL [facility] Basophils/100 WBC (Bld) 1 % 0 - 2 % [facility] Eosinophils (Bld) [#/Vol] 0.6 10*3/uL High 0.0 - 0.5 10*3/uL [facility] Eosinophils/100 WBC (Bld) 3 % 0 - 6 % [facility] Hypochromia Ql (Bld) Slight Abnormal (none) [facility] Lymphocytes (Bld) [#/Vol] 1.6 10*3/uL 1.0 - 4.3 10*3/uL [facility] Lymphocytes/100 WBC (Bld) 8 % Low 15 - 45 % [facility] Monocytes (Bld) [#/Vol] 0.4 10*3/uL 0.0 - 0.9 10*3/uL [facility] Monocytes/100 WBC (Bld) 2 % Low 5 - 13 % [facility] Neutrophils (Bld) [#/Vol] 17.5 10*3/uL High 1.8 - 7.5 10*3/uL [facility] Ovalocytes LM Ql (Bld) Slight Abnormal (none) [facility] Poikilocytosis LM Ql (Bld) Slight Abnormal (none) [facility] RBC morphology finding Nom (Bld) abnormal [facility] Segmented neutrophils/100 WBC (Bld) 86 % High 38 - 82 % [facility] No Panel Informationon 11-01 Interpretation and review of laboratory results Normal [facility] Interpretation and review of laboratory results Normal [facility] CV EPIPHANY [facility] CV CPACS Interpretation and review of laboratory results Normal [facility] Interpretation and review of laboratory results Normal [facility] Interpretation and review of laboratory results Abnormal [facility] Basophils Manual 1 [facility] Eosinophils Manual 3 High 0 - 1 [facility] Interpretation and review of laboratory results Abnormal [facility] Lymphocytes Manual 8 [facility] Monocytes Manual 2 [facility] Neutrophils Manual 87 [facility] Interpretation and review of laboratory results Normal [facility] No Panel InformationOrdered By: Samra Reveles on 11-01-2024 P [place] 53 degrees [facility] [employer] Work Phone: MS Interval 107 ms [facility] [employer] Work Phone: QRS [place] 10 degrees [facility] [employer] Work Phone: QRSD Interval 71 ms [facility] [employer] Work Phone: QT Interval 338 ms [facility] [employer] Work Phone: QTC Interval 458 ms [facility] [employer] Work Phone: T Wave [place] 161 degrees [facility] [employer] Work Phone: [facility] [employer] Work Phone: No Panel InformationOrdered By: Jacob Gutiérrez on 11-01-2024 Left AVF Arterial Prox Anastomosis EDV 0 cm/s [facility] [employer] Work Phone: Left AVF Arterial Prox Anastomosis PSV 30.4 cm/s [facility] [employer] Work Phone: Left AVF AVG Diameter 1 0.6 cm S [facility] [employer] Phone: Left AVF AVG Diameter 2 0.56 cm S [facility] [employer] Work Phone: Left AVF AVG Diameter 3 0.7 cm S [facility] [employer] Work Phone: Left AVF AVG Inflow Vol Flow 212.7 mL/min [facility] [employer] Work Phone: Left AVF Dist Outflow EDV 0 cm/s [facility] Phone: Left AVF Dist Outflow PSV 0 cm/s [facility] Phone: Left AVF Inflow Artery EDV 0 cm/s [facility] Phone: Left AVF Inflow Artery PSV 64.6 cm/s [facility] [employer] Phone: Left AVF Mid Outflow EDV 0 cm/s [facility] [employer] Phone: Left AVF Mid Outflow PSV 0 cm/s [facility] [employer] Phone: Left AVF Prox Outflow EDV 0 cm/s [facility] [employer] Phone: Left AVF Prox Outflow PSV 0 cm/s [facility] [place] Phone: Left AVF Venous Dist Anastomosis EDV 11 cm/s [facility] Phone: Left AVF Venous Dist Anastomosis PSV 21.3 cm/s [facility] Phone: Left AVG AVF Depth 1 0.32 cm [employer] Work Phone: Left AVG AVF Depth 2 0.4 cm [employer] Work Phone: Left AVG AVF Depth 3 0.27 cm [facility] [employer] Work Phone: PT Coag (Bld) [Time]on 11-01 INR Coag (PPP) [Relative time] 1.1 {INR} 0.9 - 1.1 [facility] Interpretation and review of laboratory results Normal [facility] Vital signsOrdered By: Samra Reveles on 11-01-2024 Heart rate 110 /min bpm [facility] [employer] Work Phone: XR Chest Single viewon 11-01 [facility] Radiology Study observation (narrative) [facility] XR Chest Single viewOrdered By: Leonila Seth on 11-01-2024 [facility] [employer] Work Phone: Basic metabolic 1998 panelon 10-31-2024 Anion gap [Moles/Vol] 10 mmol/L 3 - 13 mmol/L [facility] Calcium [Mass/Vol] 8 mg/dL Low 8.8 - 10. 0 mg/dL [facility] Chloride [Moles/Vol] 110 mmol/L High 98 - 10 7 mmol/L [facility] CO2 [Moles/Vol] 23 mmol/L 23 - 31 mmol/L [facility] Creatinine [Mass/Vol] 4.44 mg/dL High 0.57 - 1.11 mg/dL [facility] GFR/1.73 sq M.predicted (S/P/Bld) [Vol rate/Area] 9.9 mL/min Low - PINF [facility] Glucose [Mass/Vol] 73 mg/dL Low 82 - 115 mg/dL [facility] Interpretation and review of laboratory results Abnormal [facility] Potassium [Moles/Vol] 4.4 mmol/L 3.5 - 5.1 mmol/L [facility] Sodium [Moles/Vol] 143 mmol/L 136 - 145 mmol/L [facility] Urea nitrogen [Mass/Vol] 27 mg/dL High 9 - 23 mg/dL [facility] CBC W Auto Differential pane l (Bld)on 10-31-2024 Erythrocyte distribution width (RBC) [Ratio] 16.7 % High 11.5 - 15.0 % [facility] Hematocrit (Bld) [Volume fraction] 26.6 % Low 35.0 - 47.0 % [facility] Hemoglobin (Bld) [Mass/Vol] 8.5 g/dL Low 11.7 - 16.0 g/dL [facility] MCH (RBC) [Entitic mass] 29.2 pg 26.0 - 34.0 pg [facility] MCHC (RBC) [Mass/Vol] 32 % 30.5 - 36.0 % [facility] MCV (RBC) [Entitic vol] 91.4 fL 77.0 - 99.0 fL [facility] Platelet mean volume (Bld) [Entitic vol] 10.7 fL 9.0 - 12.7 fL [facility] Platelets (Bld) [#/Vol] 531 10*3/uL High 140 - 440 10*3/uL [facility] RBC (Bld) [#/Vol] 2.91 10*6/uL Low 3.80 - 5.2 0 10*6/uL [facility] WBC (Bld) [#/Vol] 17.2 10*3/uL High 3.6 - 10.7 10*3/uL [facility] Laboratory - Chemistry and C hemistry - challengeon 10-31-2024 Glucose [Mass/Vol] 85 mg/dL 70 - 100 mg/dL [facility] Glucose [Mass/Vol] 69 mg/dL Low 70 - 100 mg/dL [facility] Glucose [Mass/Vol] 78 mg/dL 70 - 100 mg/dL [facility] Glucose [Mass/Vol] 76 mg/dL 70 - 100 mg/dL [facility] Glucose [Mass/Vol] 82 mg/dL 70 - 100 mg/dL [facility] Laboratory - Hematology and Cell countson 10-31-2024 Anisocytosis Ql (Bld) Slight Abnormal (none) [facility] Basophils (Bld) [#/Vol] 0.2 10*3/uL 0.0 - 0.2 10*3/uL [facility] Basophils/100 WBC (Bld) 1 % 0 - 2 % [facility] Eosinophils (Bld) [#/Vol] 1.2 10*3/uL High 0.0 - 0.5 10*3/uL [facility] Eosinophils/100 WBC (Bld) 7 % High 0 - 6 % [facility] Lymphocytes (Bld) [#/Vol] 1.5 10*3/uL 1.0 - 4.3 10*3/uL [facility] Lymphocytes/100 WBC (Bld) 9 % Low 15 - 45 % [facility] Monocytes (Bld) [#/Vol] 0.7 10*3/uL 0.0 - 0.9 10*3/uL [facility] Monocytes/100 WBC (Bld) 4 % Low 5 - 13 % [facility] Neutrophils (Bld) [#/Vol] 13.6 10*3/uL High 1.8 - 7.5 10*3/uL [facility] Ovalocytes LM Ql (Bld) Slight Abnormal (none) [facility] Poikilocytosis LM Ql (Bld) Slight Abnormal (none) [facility] RBC morphology finding Nom (Bld) abnormal [facility] Segmented neutrophils/100 WBC (Bld) 79 % 38 - 82 % [facility] No Panel Informationon 10-31 Interpretation and review of laboratory results Normal [facility] Interpretation and review of laboratory results Abnormal [facility] Interpretation and review of laboratory results Normal [facility] Interpretation and review of laboratory results Normal [facility] Basophils Manual 1 [facility] Eosinophils Manual 7 High 0 - 1 [facility] Interpretation and review of laboratory results Abnormal [facility] Lymphocytes Manual 9 [facility] Monocytes Manual 4 [facility] Neutrophils Manual 79 [facility] Interpretation and review of laboratory results Normal [facility] Bacteria identified Anaer cx Nom (Unsp spec)on 10-30-2024 Interpretation and review of laboratory results Normal [facility] Interpretation and review of laboratory results Normal [facility] Basic metabolic 1998 panelon 10-30-2024 Anion gap [Moles/Vol] 7 mmol/L 3 - 13 mmol/L [facility] Calcium [Mass/Vol] 7.7 mg/dL Low 8.8 - 10. 0 mg/dL [facility] Chloride [Moles/Vol] 110 mmol/L High 98 - 10 7 mmol/L [facility] CO2 [Moles/Vol] 26 mmol/L 23 - 31 mmol/L [facility] Creatinine [Mass/Vol] 3.52 mg/dL High 0.57 - 1.11 mg/dL [facility] GFR/1.73 sq M.predicted (S/P/Bld) [Vol rate/Area] 13.1 mL/min Low - PINF [facility] Glucose [Mass/Vol] 79 mg/dL Low 82 - 115 mg/dL [facility] Interpretation and review of laboratory results Abnormal [facility] Potassium [Moles/Vol] 4.2 mmol/L 3.5 - 5.1 mmol/L [facility] Sodium [Moles/Vol] 143 mmol/L 136 - 145 mmol/L [facility] Urea nitrogen [Mass/Vol] 21 mg/dL 9 - 23 mg/dL [facility] CBC W Auto Differential pane l (Bld)on 10-30-2024 Erythrocyte distribution width (RBC) [Ratio] 16.6 % High 11.5 - 15.0 % [facility] Hematocrit (Bld) [Volume fraction] 26.3 % Low 35.0 - 47.0 % [facility] Hemoglobin (Bld) [Mass/Vol] 8.3 g/dL Low 11.7 - 16.0 g/dL [facility] MCH (RBC) [Entitic mass] 29.1 pg 26.0 - 34.0 pg [facility] MCHC (RBC) [Mass/Vol] 31.6 % 30.5 - 36.0 % [facility] MCV (RBC) [Entitic vol] 92.3 fL 77.0 - 99.0 fL [facility] Platelet mean volume (Bld) [Entitic vol] 10.6 fL 9.0 - 12.7 fL [facility] Platelets (Bld) [#/Vol] 502 10*3/uL High 140 - 440 10*3/uL [facility] RBC (Bld) [#/Vol] 2.85 10*6/uL Low 3.80 - 5.2 0 10*6/uL [facility] WBC (Bld) [#/Vol] 18.2 10*3/uL High 3.6 - 10.7 10*3/uL [facility] Laboratory - Chemistry and C hemistry - challengeon 10-30-2024 Glucose [Mass/Vol] 79 mg/dL 70 - 100 mg/dL [facility] Glucose [Mass/Vol] 83 mg/dL 70 - 100 mg/dL [facility] Glucose [Mass/Vol] 92 mg/dL 70 - 100 mg/dL [facility] Glucose [Mass/Vol] 75 mg/dL 70 - 100 mg/dL [facility] Laboratory - Hematology and Cell countson 10-30-2024 Anisocytosis Ql (Bld) Slight Abnormal (none) [facility] Eosinophils (Bld) [#/Vol] 0.7 10*3/uL High 0.0 - 0.5 10*3/uL [facility] Eosinophils/100 WBC (Bld) 4 % 0 - 6 % [facility] Lymphocytes (Bld) [#/Vol] 0.7 10*3/uL Low 1.0 - 4.3 10*3/uL [facility] Lymphocytes/100 WBC (Bld) 4 % Low 15 - 45 % [facility] Monocytes (Bld) [#/Vol] 0.5 10*3/uL 0.0 - 0.9 10*3/uL [facility] Monocytes/100 WBC (Bld) 3 % Low 5 - 13 % [facility] Neutrophils (Bld) [#/Vol] 16.2 10*3/uL High 1.8 - 7.5 10*3/uL [facility] RBC morphology finding Nom (Bld) abnormal [facility] Segmented neutrophils/100 WBC (Bld) 89 % High 38 - 82 % [facility] Laboratory - Microbiology an d Antimicrobial susceptibilityon 10-30-2024 Bacteria identified Anaer cx Nom (Unsp spec) No growth at 5 days [facility] Bacteria identified Anaer cx Nom (Unsp spec) No growth at 5 days [facility] No Panel Informationon 10-30 Interpretation and review of laboratory results Normal [facility] Interpretation and review of laboratory results Normal [facility] Interpretation and review of laboratory results Normal [facility] Eosinophils Manual 4 High 0 - 1 [facility] Interpretation and review of laboratory results Abnormal [facility] Lymphocytes Manual 4 [facility] Monocytes Manual 3 [facility] Neutrophils Manual 89 [facility] Interpretation and review of laboratory results Normal [facility] Basic metabolic 1998 panelon 10-29-2024 Anion gap [Moles/Vol] 11 mmol/L 3 - 13 mmol/L [facility] Calcium [Mass/Vol] 7.9 mg/dL Low 8.8 - 10. 0 mg/dL [facility] Chloride [Moles/Vol] 108 mmol/L High 98 - 10 7 mmol/L [facility] CO2 [Moles/Vol] 24 mmol/L 23 - 31 mmol/L [facility] Creatinine [Mass/Vol] 2.73 mg/dL High 0.57 - 1.11 mg/dL [facility] GFR/1.73 sq M.predicted (S/P/Bld) [Vol rate/Area] 17.8 mL/min Low - PINF [facility] Glucose [Mass/Vol] 85 mg/dL 82 - 115 mg/dL [facility] Interpretation and review of laboratory results Abnormal [facility] Potassium [Moles/Vol] 3.9 mmol/L 3.5 - 5.1 mmol/L [facility] Sodium [Moles/Vol] 143 mmol/L 136 - 145 mmol/L [facility] Urea nitrogen [Mass/Vol] 14 mg/dL 9 - 23 mg/dL [facility] CBC W Auto Differential pane l (Bld)on 10-29-2024 Erythrocyte distribution width (RBC) [Ratio] 16.6 % High 11.5 - 15.0 % [facility] Hematocrit (Bld) [Volume fraction] 27.2 % Low 35.0 - 47.0 % [facility] Hemoglobin (Bld) [Mass/Vol] 8.8 g/dL Low 11.7 - 16.0 g/dL [facility] MCH (RBC) [Entitic mass] 29.1 pg 26.0 - 34.0 pg [facility] MCHC (RBC) [Mass/Vol] 32.4 % 30.5 - 36.0 % [facility] MCV (RBC) [Entitic vol] 90.1 fL 77.0 - 99.0 fL [facility] Platelet mean volume (Bld) [Entitic vol] 10.6 fL 9.0 - 12.7 fL [facility] Platelets (Bld) [#/Vol] 464 10*3/uL High 140 - 440 10*3/uL [facility] RBC (Bld) [#/Vol] 3.02 10*6/uL Low 3.80 - 5.2 0 10*6/uL [facility] WBC (Bld) [#/Vol] 22.8 10*3/uL High 3.6 - 10.7 10*3/uL [facility] Laboratory - Chemistry and C hemistry - challengeon 10-29-2024 Glucose [Mass/Vol] 119 mg/dL High 70 - 100 mg/dL [facility] Glucose [Mass/Vol] 76 mg/dL 70 - 100 mg/dL [facility] Glucose [Mass/Vol] 66 mg/dL Low 70 - 100 mg/dL [facility] Glucose [Mass/Vol] 80 mg/dL 70 - 100 mg/dL [facility] Glucose [Mass/Vol] 85 mg/dL 70 - 100 mg/dL [facility] Laboratory - Hematology and Cell countson 10-29-2024 Eosinophils (Bld) [#/Vol] 0.9 10*3/uL High 0.0 - 0.5 10*3/uL [facility] Eosinophils/100 WBC (Bld) 4 % 0 - 6 % [facility] Lymphocytes (Bld) [#/Vol] 1.4 10*3/uL 1.0 - 4.3 10*3/uL [facility] Lymphocytes/100 WBC (Bld) 6 % Low 15 - 45 % [facility] Monocytes (Bld) [#/Vol] 0.9 10*3/uL 0.0 - 0.9 10*3/uL [facility] Monocytes/100 WBC (Bld) 4 % Low 5 - 13 % [facility] Neutrophils (Bld) [#/Vol] 19.6 10*3/uL High 1.8 - 7.5 10*3/uL [facility] RBC morphology finding Nom (Bld) Normal [facility] Segmented neutrophils/100 WBC (Bld) 86 % High 38 - 82 % [facility] No Panel Informationon 10-29 Interpretation and review of laboratory results Abnormal [facility] Interpretation and review of laboratory results Normal [facility] Interpretation and review of laboratory results Abnormal [facility] Eosinophils Manual 4 High 0 - 1 [facility] Interpretation and review of laboratory results Abnormal [facility] Lymphocytes Manual 6 [facility] Monocytes Manual 4 [facility] Neutrophils Manual 87 [facility] Interpretation and review of laboratory results Normal [facility] Interpretation and review of laboratory results Normal [facility] Bacteria identified Cx Nom ( Bld)on 10-28-2024 Interpretation and review of laboratory results Normal [facility] Basic metabolic 1998 panelon 10-28-2024 Anion gap [Moles/Vol] 11 mmol/L 3 - 13 mmol/L [facility] Calcium [Mass/Vol] 8 mg/dL Low 8.8 - 10. 0 mg/dL [facility] Chloride [Moles/Vol] 109 mmol/L High 98 - 10 7 mmol/L [facility] CO2 [Moles/Vol] 24 mmol/L 23 - 31 mmol/L [facility] Creatinine [Mass/Vol] 3.83 mg/dL High 0.57 - 1.11 mg/dL [facility] GFR/1.73 sq M.predicted (S/P/Bld) [Vol rate/Area] 11.8 mL/min Low - PINF [facility] Glucose [Mass/Vol] 87 mg/dL 82 - 115 mg/dL [facility] Interpretation and review of laboratory results Abnormal [facility] Potassium [Moles/Vol] 3.9 mmol/L 3.5 - 5.1 mmol/L [facility] Sodium [Moles/Vol] 144 mmol/L 136 - 145 mmol/L [facility] Urea nitrogen [Mass/Vol] 24 mg/dL High 9 - 23 mg/dL [facility] CBC W Auto Differential pane l (Bld)on 10-28-2024 Erythrocyte distribution width (RBC) [Ratio] 16.4 % High 11.5 - 15.0 % [facility] Hematocrit (Bld) [Volume fraction] 28 % Low 35.0 - 47.0 % [facility] Hemoglobin (Bld) [Mass/Vol] 9.3 g/dL Low 11.7 - 16.0 g/dL [facility] MCH (RBC) [Entitic mass] 29.5 pg 26.0 - 34.0 pg [facility] MCHC (RBC) [Mass/Vol] 33.2 % 30.5 - 36.0 % [facility] MCV (RBC) [Entitic vol] 88.9 fL 77.0 - 99.0 fL [facility] Platelet mean volume (Bld) [Entitic vol] 10.7 fL 9.0 - 12.7 fL [facility] Platelets (Bld) [#/Vol] 460 10*3/uL High 140 - 440 10*3/uL [facility] RBC (Bld) [#/Vol] 3.15 10*6/uL Low 3.80 - 5.2 0 10*6/uL [facility] WBC (Bld) [#/Vol] 26.6 10*3/uL High 3.6 - 10.7 10*3/uL [facility] Laboratory - Chemistry and C hemistry - challengeon 10-28-2024 Glucose [Mass/Vol] 102 mg/dL High 70 - 100 mg/dL [facility] Glucose [Mass/Vol] 101 mg/dL High 70 - 100 mg/dL [facility] Glucose [Mass/Vol] 90 mg/dL 70 - 100 mg/dL [facility] Glucose [Mass/Vol] 98 mg/dL 70 - 100 mg/dL [facility] Glucose [Mass/Vol] 92 mg/dL 70 - 100 mg/dL [facility] Laboratory - Hematology and Cell countson 10-28-2024 Anisocytosis Ql (Bld) Slight Abnormal (none) [facility] Basophils (Bld) [#/Vol] 0.3 10*3/uL High 0.0 - 0.2 10*3/uL [facility] Basophils/100 WBC (Bld) 1 % 0 - 2 % [facility] Eosinophils (Bld) [#/Vol] 0.5 10*3/uL 0.0 - 0.5 10*3/uL [facility] Eosinophils/100 WBC (Bld) 2 % 0 - 6 % [facility] Lymphocytes (Bld) [#/Vol] 1.9 10*3/uL 1.0 - 4.3 10*3/uL [facility] Lymphocytes/100 WBC (Bld) 7 % Low 15 - 45 % [facility] Monocytes (Bld) [#/Vol] 1.1 10*3/uL High 0.0 - 0.9 10*3/uL [facility] Monocytes/100 WBC (Bld) 4 % Low 5 - 13 % [facility] Neutrophils (Bld) [#/Vol] 22.6 10*3/uL High 1.8 - 7.5 10*3/uL [facility] RBC morphology finding Nom (Bld) abnormal [facility] Segmented neutrophils/100 WBC (Bld) 85 % High 38 - 82 % [facility] Laboratory - Microbiology an d Antimicrobial susceptibilityon 10-28-2024 Bacteria identified Cx Nom (Bld) No growth at 5 days [facility] No Panel Informationon 10-28 Interpretation and review of laboratory results Abnormal [facility] Interpretation and review of laboratory results Abnormal [facility] Interpretation and review of laboratory results Normal [facility] Basophils Manual 1 [facility] Eosinophils Manual 2 High 0 - 1 [facility] Interpretation and review of laboratory results Abnormal [facility] Lymphocytes Manual 7 [facility] Monocytes Manual 4 [facility] Neutrophils Manual 88 [facility] Interpretation and review of laboratory results Normal [facility] Interpretation and review of laboratory results Normal [facility] Bacteria identified Cx Nom ( Bld)on 10-27-2024 Interpretation and review of laboratory results Normal [facility] Laboratory - Chemistry and C hemistry - challengeon 10-27-2024 Glucose [Mass/Vol] 100 mg/dL 70 - 100 mg/dL [facility] Glucose [Mass/Vol] 72 mg/dL 70 - 100 mg/dL [facility] Laboratory - Microbiology an d Antimicrobial susceptibilityon 10-27-2024 Bacteria identified Cx Nom (Bld) No growth at 5 days [facility] No Panel Informationon 10-27 Interpretation and review of laboratory results Normal [facility] CBC panel Auto (Bld)on 09-06 Erythrocyte distribution width (RBC) [Ratio] 15.5 % High 11.5 - 14.5 % [facility] Hematocrit (Bld) [Volume fraction] 24.9 % Low 36.0 - 46.0 % [facility] Hemoglobin (Bld) [Mass/Vol] 7.6 g/dL Low 12.0 - 16.0 g/dL [facility] Interpretation and review of laboratory results Abnormal [facility] MCH (RBC) [Entitic mass] 30.8 pg 26.0 - 34.0 pg [facility] MCHC (RBC) [Mass/Vol] 30.5 g/dL Low 32.0 - 36.0 g/dL [facility] MCV (RBC) [Entitic vol] 101 fL High 80 - 100 fL [facility] Nucleated RBC/100 WBC (Bld) [Ratio] 0 % [facility] Platelets (Bld) [#/Vol] 488 10*3/uL High [facility] RBC (Bld) [#/Vol] 2.47 10*6/uL Low [facility] WBC (Bld) [#/Vol] 7.9 10*3/uL [facility] Erythrocyte distribution width (RBC) [Ratio] 15.5 % High 11.5-14.5 [facility] Comment on above: Performed By: #### 2 777-1 #### KELECHI Garcia ([id number]) [facility] ([facility]) [address] [place] [address] 12471 Hematocrit (Bld) [Volume fraction] 24.9 % Low 36.0-46.0 [facility] Comment on above: Performed By: #### 2 777-1 #### KELECHI Garcia ([id number]) [facility] ([facility]) [address] [place] [address] 02036 Hemoglobin (Bld) [Mass/Vol] 7.6 g/dL Low 12.0-16.0 [facility] Comment on above: Performed By: #### 2 777-1 #### KELECHI Garcia ([id number]) [facility] ([facility]) [address] [place] [address] 53307 MCH (RBC) [Entitic mass] 30.8 pg Normal 26.0-34.0 [facility] Comment on above: Performed By: #### 2 777-1 #### KELECHI Garcia ([id number]) [facility] ([facility]) [address] [place] [address] 37161 MCHC (RBC) [Mass/Vol] 30.5 g/dL Low 32.0-36.0 [facility] Comment on above: Performed By: #### 2 777-1 #### KELECHI Garcia ([id number]) [facility] ([facility]) [id number] [place] [address] 04229 MCV (RBC) [Entitic vol] 101 fL High 80-100 [facility] Comment on above: Performed By: #### 2 777-1 #### KELECHI Garcia ([id number]) [facility] ([facility]) [address] [place] [address] 58220 Nucleated RBC/100 WBC (Bld) [Ratio] 0.0 /100 WBCs Normal 0.0-0.0 [facility] Comment on above: Performed By: #### 2 777-1 #### KLEECHI Garcia ([id number]) [facility] ([facility]) [id number] [place] [address] 23609 Platelets (Bld) [#/Vol] 488 x10*3/uL High 150-450 [facility] Comment on above: Performed By: #### 2 777-1 #### KELECHI Garcia ([id number]) [facility] ([facility]) [id number] [place] [address] 79972 RBC (Bld) [#/Vol] 2.47 x10*6/uL Low 4.00-5.20 [facility] Comment on above: Performed By: #### 2 777-1 #### KELECHI Garcia ([id number]) [facility] ([facility]) [id number] [place] [address] 59977 WBC (Bld) [#/Vol] 7.9 x10*3/uL Normal 4.4-11.3 [facility] Comment on above: Performed By: #### 2 777-1 #### KELECHI Garcia ([id number]) [facility] ([facility]) [id number] [place] [address] 39397 Glucose Test strip manual (B ld) [Mass/Vol]on 09-06-2024 Glucose [Mass/Vol] 121 mg/dL High 74 - 99 mg/dL [facility] Interpretation and review of laboratory results Abnormal [facility] Glucose [Mass/Vol] 121 mg/dL High 74-99 [facility] Comment on above: Performed By: #### 2 777-1 #### KELECHI Garcia ([id number]) [facility] ([facility]) [id number] [place] [address] 32085 Renal function 2000 panelon 09-06-2024 Albumin BCP dye [Mass/Vol] 3.2 g/dL Low 3.4 - 5.0 g/dL [facility] Anion gap [Moles/Vol] 16 mmol/L 10 - 2 0 mmol/L [facility] Calcium [Mass/Vol] 8.1 mg/dL Low 8.6 - 10. 6 mg/dL [facility] Chloride [Moles/Vol] 100 mmol/L 98 - 10 7 mmol/L [facility] CO2 [Moles/Vol] 31 mmol/L 21 - 32 mmol/L [facility] Creatinine [Mass/Vol] 5.52 mg/dL High 0.50 - 1.05 mg/dL [facility] GFR/1.73 sq M.predicted among non-blacks MDRD (S/P/Bld) [Vol rate/Area] 8 mL/min/{1.73_m2} Low - PINF [facility] Comment on above: Calculations of katy mated GFR are performed using the 2020 CKD-EPI Study Refit equation without the race variable for the IDMS-Traceable creatinine methods. https://jasn.asnjournals.org/content/early/ASN.2020 323321 Glucose [Mass/Vol] 118 mg/dL High 74 - 99 mg/dL [facility] Interpretation and review of laboratory results Abnormal [facility] Phosphate [Mass/Vol] 2.2 mg/dL Low 2.5 - 4 .9 mg/dL [facility] Potassium [Moles/Vol] 3.9 mmol/L 3.5 - 5.3 mmol/L [facility] Sodium [Moles/Vol] 143 mmol/L 136 - 145 mmol/L [facility] Urea nitrogen [Mass/Vol] 35 mg/dL High 6 - 23 mg/dL [facility] Albumin BCP dye [Mass/Vol] 3.2 g/dL Low 3.4-5.0 [facility] Comment on above: Performed By: #### 2 777-1 #### KELECHI Garcia ([id number]) [facility] ([facility]) [id number] [place] [address] Anion gap [Moles/Vol] 16 mmol/L Normal 10-20 [facility] Comment on above: Performed By: #### 2 777-1 #### KELECHI WEBSTERER L ([id number]) [facility] ([facility]) [address] [place] [address] Calcium [Mass/Vol] 8.1 mg/dL Low 8.6-10.6 [facility] Comment on above: Performed By: #### 2 777-1 #### KELECHI VELEZMOTZER L ([id number]) [facility] ([facility]) [address] [place] [address] Chloride [Moles/Vol] 100 mmol/L Normal 98-107 [facility] Comment on above: Performed By: #### 2 777-1 #### KELECHI VELEZMOTZER L ([id number]) [facility] ([facility]) [address] [place] [address] CO2 [Moles/Vol] 31 mmol/L Normal 21-32 [facility] Comment on above: Performed By: #### 2 777-1 #### KELECHI VELEZMOTZER L ([id number]) [facility] ([facility]) [address] [place] [address] Creatinine [Mass/Vol] 5.52 mg/dL High 0.50-1.05 [facility] Comment on above: Performed By: #### 2 777-1 #### KELECHI VELEZMOTZER L ([id number]) [facility] ([facility]) [address] [place] [address] Glomerular filtration rate/1.73 sq M.predicted 8 mL/min/1.73m*2 Low >60 [facility] Comment on above: Result Comment: Calc ulations of estimated GFR are performed using the 2020 CKD-EPI Study Refit equation without the race variable for the IDMS-Traceable creatinine methods. https://jasn.asnjournals.org/content/early//ASN.2020 756304 Performed By: #### 2 777-1 #### KELECHI VELEZMOTZER L ([id number]) [facility] ([facility]) [address] [place] [address] Glucose [Mass/Vol] 118 mg/dL High 74-99 [facility] Comment on above: Performed By: #### 2 777-1 #### KELECHI Garcia ([id number]) [facility] ([facility]) [id number] [place] [address]57 Phosphate [Mass/Vol] 2.2 mg/dL Low 2.5-4.9 [facility] Comment on above: Performed By: #### 2 777-1 #### KELECHI Garcia ([id number]) [facility] ([facility]) [address] [place] [address] 36540 Potassium [Moles/Vol] 3.9 mmol/L Normal 3.5-5.3 [facility] Comment on above: Performed By: #### 2 777-1 #### KELECHI Garcia ([id number]) [facility] ([facility]) [address] [place] [address] 02844 Sodium [Moles/Vol] 143 mmol/L Normal 136-145 [facility] Comment on above: Performed By: #### 2 777-1 #### KELECHI Garcia ([id number]) [facility] ([facility]) [address] [place] [address] 10073 Urea nitrogen [Mass/Vol] 35 mg/dL High 6-23 [facility] Comment on above: Performed By: #### 2 777-1 #### KELECHI Garcia ([id number]) [facility] ([facility]) [address] [place] [address] 53328 CBC W Auto Differential pane l (Bld)on 09-05-2024 Basophils (Bld) [#/Vol] 0.04 10*3/uL [facility] Basophils/100 WBC (Bld) 0.6 % 0.0 - 2.0 % [facility] Eosinophils (Bld) [#/Vol] 0.33 10*3/uL [facility] Eosinophils/100 WBC (Bld) 4.7 % 0.0 - 6.0 % [facility] Erythrocyte distribution width (RBC) [Ratio] 15.1 % High 11.5 - 14.5 % [facility] Hematocrit (Bld) [Volume fraction] 22.5 % Low 36.0 - 46.0 % [facility] Hemoglobin (Bld) [Mass/Vol] 7.2 g/dL Low 12.0 - 16.0 g/dL [facility] Immature granulocytes (Bld) [#/Vol] 0.06 10*3/uL [facility] Immature granulocytes/100 WBC (Bld) 0.9 % 0.0 - 0.9 % [facility] Comment on above: Immature Granulocyte Count (IG) includes promyelocytes, myelocytes and metamyelocytes but does not include bands. Percent differential counts (%) should be interpreted in the context of the absolute cell counts (cells/UL). Interpretation and review of laboratory results Abnormal [facility] Lymphocytes (Bld) [#/Vol] 1 10*3/uL [facility] Lymphocytes/100 WBC (Bld) 14.4 % 13.0 - 44.0 % [facility] MCH (RBC) [Entitic mass] 31 pg 26.0 - 34.0 pg [facility] MCHC (RBC) [Mass/Vol] 32 g/dL 32.0 - 36.0 g/dL [facility] MCV (RBC) [Entitic vol] 97 fL 80 - 100 fL [facility] Monocytes (Bld) [#/Vol] 0.56 10*3/uL [facility] Monocytes/100 WBC (Bld) 8 % 2.0 - 10.0 % [facility] Neutrophils (Bld) [#/Vol] 4.97 10*3/uL [facility] Comment on above: Percent differential counts (%) should be interpreted in the context of the absolute cell counts (cells/uL). Neutrophils/100 WBC (Bld) 71.4 % 40.0 - 80.0 % [facility] Nucleated RBC/100 WBC (Bld) [Ratio] 0 % [facility] Platelets (Bld) [#/Vol] 404 10*3/uL [facility] RBC (Bld) [#/Vol] 2.32 10*6/uL [facility] ([facility]ld[facility] [#/Vol] 7 10*3/uL [facility] Basophils (Bld) [#/Vol] 0.04 x10*3/uL Normal 0.00-0.10 [facility] Comment on above: Performed By: #### 2 777-1 #### KELECHI Garcia ([id number]) [facility] ([facility]) [address] [place] [address] 22242 Basophils/100 WBC (Bld) 0.6 % Normal 0.0-2.0 [facility] Comment on above: Performed By: #### 2 777-1 #### KELECHI Garcia ([id number]) [facility] ([facility]) [address] [place] [address] 25992 Eosinophils (Bld) [#/Vol] 0.33 x10*3/uL Normal 0.00-0.40 [facility] Comment on above: Performed By: #### 2 777-1 #### KELECHI VELÁZQUEZ L ([id number]) [facility] ([facility]) [address] [place] [address] 04808 Eosinophils/100 WBC (Bld) 4.7 % Normal 0.0-6.0 [facility] Comment on above: Performed By: #### 2 777-1 #### KELECHI VELÁZQUEZ L ([id number]) [facility] ([facility]) [address] [place] [address] 77425 Erythrocyte distribution width (RBC) [Ratio] 15.1 % High 11.5-14.5 [facility] Comment on above: Performed By: #### 2 777-1 #### KELECHI VELÁZQUEZ L ([id number]) [facility] ([facility]) [address] [place] [address] 93802 Hematocrit (Bld) [Volume fraction] 22.5 % Low 36.0-46.0 [facility] Comment on above: Performed By: #### 2 777-1 #### KELECHI VELÁZQUEZ L ([id number]) [facility] ([facility]) [address] [place] [address] Hemoglobin (Bld) [Mass/Vol] 7.2 g/dL Low 12.0-16.0 [facility] Comment on above: Performed By: #### 2 777-1 #### KELECHI Garcia ([id number]) [facility] ([facility]) [address] [place] [address] Immature granulocytes (Bld) [#/Vol] 0.06 x10*3/uL Normal 0.00-0.50 [facility] Comment on above: Performed By: #### 2 777-1 #### KELECHI Garcia ([id number]) [facility] ([facility]) [id number] [place] [address]171 Immature granulocytes/100 WBC (Bld) 0.9 % Normal 0.0-0.9 [facility] Comment on above: Result Comment: Jannie ture Granulocyte Count (IG) includes promyelocytes, myelocytes and metamyelocytes but does not include bands. Percent differential counts (%) should be interpreted in the context of the absolute cell counts (cells/UL). Performed By: #### 2 777-1 #### KELECHI Garcia ([id number]) [facility] ([facility]) [address] [place] [address] 81532 Lymphocytes (Bld) [#/Vol] 1.00 x10*3/uL Normal 0.80-3.00 [facility] Comment on above: Performed By: #### 2 777-1 #### KELECHI Garcia ([id number]) [facility] ([facility]) [id number] [place] [address]19 Lymphocytes/100 WBC (Bld) 14.4 % Normal 13.0-44.0 [facility] Comment on above: Performed By: #### 2 777-1 #### KELECHI Garcia ([id number]) [facility] ([facility]) [address] [place] [address] MCH (RBC) [Entitic mass] 31.0 pg Normal 26.0-34.0 [facility] Comment on above: Performed By: #### 2 777-1 #### KELECHI Garcia ([id number]) [facility] ([facility]) [address] [place] [address] MCHC (RBC) [Mass/Vol] 32.0 g/dL Normal 32.0-36.0 [facility] Comment on above: Performed By: #### 2 777-1 #### KELECHI VELÁZQUEZ L ([id number]) [facility] ([facility]) [address] [place] [address] MCV (RBC) [Entitic vol] 97 fL Normal 80-100 U [facility] Comment on above: Performed By: #### 2 777-1 #### KELECHI Garcia ([id number]) [facility] ([facility]) [address] [place] [address] Monocytes (Bld) [#/Vol] 0.56 x10*3/uL Normal 0.05-0.80 [facility] Comment on above: Performed By: #### 2 777-1 #### KELECHI Garcia ([id number]) [facility] ([facility]) [address] [place] [address] Monocytes/100 WBC (Bld) 8.0 % Normal 2.0-10.0 [facility] Comment on above: Performed By: #### 2 777-1 #### KELECHI VELÁZQUEZ L ([id number]) [facility] ([facility]) [address] [place] [address] Neutrophils (Bld) [#/Vol] 4.97 x10*3/uL Normal 1.60-5.50 [facility] Comment on above: Result Comment: Perc ent differential counts (%) should be interpreted in the context of the absolute cell counts (cells/uL). Performed By: #### 2 777-1 #### KELECHI TAOTZZAMZAM L ([id number]) [facility] ([facility]) [address] [place] [address] Neutrophils/100 WBC (Bld) 71.4 % Normal 40.0-80.0 [facility] Comment on above: Performed By: #### 2 777-1 #### KELECHI Garcia ([id number]) [facility] ([facility]) [id number] [place] [address] 86244 Nucleated RBC/100 WBC (Bld) [Ratio] 0.0 /100 WBCs Normal 0.0-0.0 [facility] Comment on above: Performed By: #### 2 777-1 #### KELECHI Garcia ([id number]) [facility] ([facility]) [id number] [place] [address] 18068 Platelets (Bld) [#/Vol] 404 x10*3/uL Normal 150-450 [facility] Comment on above: Performed By: #### 2 777-1 #### KELECHI Garcia ([id number]) [facility] ([facility]) [address] [place] [address] 74226 RBC (Bld) [#/Vol] 2.32 x10*6/uL Low 4.00-5.20 [facility] Comment on above: Performed By: #### 2 777-1 #### KELECHI Garcia ([id number]) [facility] ([facility]) [address] [place] [address] 02857 WBC (Bld) [#/Vol] 7.0 x10*3/uL Normal 4.4-11.3 [facility] Comment on above: Performed By: #### 2 777-1 #### KELECHI Garcia ([id number]) [facility] ([facility]) [address] [place] [address] 12464 Renal function 2000 panelOrd ered By: Alice Juan on 09-05-2024 Albumin BCP dye [Mass/Vol] 2.9 g/dL Low 3.4 - 5.0 g/dL [facility] Anion gap [Moles/Vol] 17 mmol/L 10 - 2 0 mmol/L [facility] Calcium [Mass/Vol] 8 mg/dL Low 8.6 - 10. 6 mg/dL [facility] Chloride [Moles/Vol] 98 mmol/L 98 - 10 7 mmol/L [facility] CO2 [Moles/Vol] 27 mmol/L 21 - 32 mmol/L [facility] Creatinine [Mass/Vol] 7.78 mg/dL High 0.50 - 1.05 mg/dL [facility] GFR/1.73 sq M.predicted among non-blacks MDRD (S/P/Bld) [Vol rate/Area] 5 mL/min/{1.73_m2} Low - PINF [facility] Comment on above: Calculations of katy mated GFR are performed using the 2020 CKD-EPI Study Refit equation without the race variable for the IDMS-Traceable creatinine methods. https://jasn.asnjournals.org/content/early/ASN.2020 288828 Glucose [Mass/Vol] 92 mg/dL 74 - 99 mg/dL [facility] Interpretation and review of laboratory results Abnormal [facility] Phosphate [Mass/Vol] 2.3 mg/dL Low 2.5 - 4 .9 mg/dL [facility] Potassium [Moles/Vol] 4.5 mmol/L 3.5 - 5.3 mmol/L [facility] Sodium [Moles/Vol] 137 mmol/L 136 - 145 mmol/L [facility] Urea nitrogen [Mass/Vol] 61 mg/dL High 6 - 23 mg/dL [facility] Renal function 2000 panelon 09-05-2024 Albumin BCP dye [Mass/Vol] 2.9 g/dL Low 3.4-5.0 [facility] Comment on above: Performed By: #### 2 777-1 #### KELECHI Garcia ([id number]) [facility] ([facility]) [address] [place] [address] Anion gap [Moles/Vol] 17 mmol/L Normal 10-20 [facility] Comment on above: Performed By: #### 2 777-1 #### KELECHI Garcia ([id number]) [facility] ([facility]) [address] [place] [address] Calcium [Mass/Vol] 8.0 mg/dL Low 8.6-10.6 [facility] Comment on above: Performed By: #### 2 777-1 #### KELECHI Garcia ([id number]) [facility] ([facility]) [address] [place] [address] Chloride [Moles/Vol] 98 mmol/L Normal 98-107 [facility] Comment on above: Performed By: #### 2 777-1 #### KELECHI VELÁZQUEZ L ([id number]) [facility] ([facility]) [address] [place] [address] CO2 [Moles/Vol] 27 mmol/L Normal 21-32 [facility] Comment on above: Performed By: #### 2 777-1 #### KELECHI Garcia ([id number]) [facility] ([facility]) [id number] [place] [address] Creatinine [Mass/Vol] 7.78 mg/dL High 0.50-1.05 [facility] Comment on above: Performed By: #### 2 777-1 #### KELECHI Garcia ([id number]) [facility] ([facility]) [id number] [place] [address] Glomerular filtration rate/1.73 sq M.predicted 5 mL/min/1.73m*2 Low >60 [facility] Comment on above: Result Comment: Calc ulations of estimated GFR are performed using the 2020 CKD-EPI Study Refit equation without the race variable for the IDMS-Traceable creatinine methods. https://jasn.asnjournals.org/content/early//ASN.2020 927432 Performed By: #### 2 777-1 #### KELECHI VELÁZQUEZ L ([id number]) [facility] ([facility]) [id number] [place] [address] Glucose [Mass/Vol] 92 mg/dL Normal 74-99 [facility] Comment on above: Performed By: #### 2 777-1 #### KELECHI Garcia ([id number]) [facility] ([facility]) [address] [place] [address] Phosphate [Mass/Vol] 2.3 mg/dL Low 2.5-4.9 [facility] Comment on above: Performed By: #### 2 777-1 #### KELECHI VELÁZQUEZ L ([id number]) [facility] ([facility]) [address] [place] [address] Potassium [Moles/Vol] 4.5 mmol/L Normal 3.5-5.3 [facility] Comment on above: Performed By: #### 2 777-1 #### KELECHI Garcia ([id number]) [facility] ([facility]) [id number] [place] [address] Sodium [Moles/Vol] 137 mmol/L Normal 136-145 [facility] Comment on above: Performed By: #### 2 777-1 #### KELECHI VELÁZQUEZ L ([id number]) [facility] ([facility]) [address] [place] [address] Urea nitrogen [Mass/Vol] 61 mg/dL High 6-23 [facility] Comment on above: Performed By: #### 2 777-1 #### KELECHI VELÁZQUEZ L ([id number]) [facility] ([facility]) [address] [place] [address] Basic metabolic 2000 panelon 09-04-2024 Anion gap [Moles/Vol] 16 mmol/L 10 - 2 0 mmol/L [facility] Calcium [Mass/Vol] 8.7 mg/dL 8.6 - 10. 6 mg/dL [facility] Chloride [Moles/Vol] 94 mmol/L Low 98 - 10 7 mmol/L [facility] CO2 [Moles/Vol] 30 mmol/L 21 - 32 mmol/L [facility] Creatinine [Mass/Vol] 6.79 mg/dL High 0.50 - 1.05 mg/dL [facility] GFR/1.73 sq M.predicted among non-blacks MDRD (S/P/Bld) [Vol rate/Area] 6 mL/min/{1.73_m2} Low - PINF [facility] Comment on above: Calculations of katy mated GFR are performed using the 2020 CKD-EPI Study Refit equation without the race variable for the IDMS-Traceable creatinine methods. https://jasn.asnjournals.org/content/early/ASN.2020 947315 Glucose [Mass/Vol] 171 mg/dL High 74 - 99 mg/dL [facility] Interpretation and review of laboratory results Abnormal [facility] Potassium [Moles/Vol] 4.1 mmol/L 3.5 - 5.3 mmol/L [facility] Sodium [Moles/Vol] 136 mmol/L 136 - 145 mmol/L [facility] Urea nitrogen [Mass/Vol] 58 mg/dL High 6 - 23 mg/dL [facility] Anion gap [Moles/Vol] 16 mmol/L Normal 10-20 [facility] Comment on above: Performed By: #### 2 777-1 #### KELECHI TAOTZER L ([id number]) [facility] ([facility]) [address] [place] [address] Calcium [Mass/Vol] 8.7 mg/dL Normal 8.6-10.6 [facility] Comment on above: Performed By: #### 2 777-1 #### KELECHI VELEZMOTZER L ([id number]) [facility] ([facility]) [address] [place] [address] Chloride [Moles/Vol] 94 mmol/L Low 98-107 [facility] Comment on above: Performed By: #### 2 777-1 #### KELECHI SCHMOTZER L ([id number]) [facility] ([facility]) [address] [place] [address] CO2 [Moles/Vol] 30 mmol/L Normal 21-32 [facility] Comment on above: Performed By: #### 2 777-1 #### KELECHI VELEZMOTZER L ([id number]) [facility] ([facility]) [address] [place] [address] Creatinine [Mass/Vol] 6.79 mg/dL High 0.50-1.05 [facility] Comment on above: Performed By: #### 2 777-1 #### KELECHI Garcia ([id number]) [facility] ([facility]) [address] [place] [address] Glomerular filtration rate/1.73 sq M.predicted 6 mL/min/1.73m*2 Low >60 [facility] Comment on above: Result Comment: Calc ulations of estimated GFR are performed using the 2020 CKD-EPI Study Refit equation without the race variable for the IDMS-Traceable creatinine methods. https://jasn.asnjournals.org/content/early/ASN.2020 338595 Performed By: #### 2 777-1 #### KELECHI Garcia ([id number]) [facility] ([facility]) [id number] [place] [address] Glucose [Mass/Vol] 171 mg/dL High 74-99 [facility] Comment on above: Performed By: #### 2 777-1 #### KELECHI Garcia ([id number]) [facility] ([facility]) [address] [place] [address] Potassium [Moles/Vol] 4.1 mmol/L Normal 3.5-5.3 [facility] Comment on above: Performed By: #### 2 777-1 #### KELECHI Garcia ([id number]) [facility] ([facility]) [address] [place] [address] Sodium [Moles/Vol] 136 mmol/L Normal 136-145 [facility] Comment on above: Performed By: #### 2 777-1 #### KELECHI Garcia ([id number]) [facility] ([facility]) [address] [place] [address] Urea nitrogen [Mass/Vol] 58 mg/dL High 6-23 [facility] Comment on above: Performed By: #### 2 777-1 #### KELECHI Garcia ([id number]) [facility] ([facility]) [address] [place] [address]70 CBC W Auto Differential pane l (Bld)Ordered By: Cheryl Brooks on 09-04-2024 Basophils (Bld) [#/Vol] U [facility] Basophils/100 WBC (Bld) U [facility] Eosinophils (Bld) [#/Vol] [facility] Eosinophils/100 WBC (Bld) [facility] Erythrocyte distribution width (RBC) [Ratio] [facility] Comment on above: qns Hematocrit (Bld) [Volume fraction] [facility] Comment on above: qns Hemoglobin (Bld) [Mass/Vol] [facility] Comment on above: qns Immature granulocytes/100 WBC (Bld) [facility] Comment on above: qns Lymphocytes (Bld) [#/Vol] [facility] Lymphocytes/100 WBC (Bld) [facility] MCHC (RBC) [Mass/Vol] [facility] Comment on above: qns MCV (RBC) [Entitic vol] [facility] Comment on above: qns Monocytes (Bld) [#/Vol] [facility] Monocytes/100 WBC (Bld) U [facility] Neutrophils (Bld) [#/Vol] [facility] Neutrophils/100 WBC (Bld) [facility] Platelets (Bld) [#/Vol] [facility] Comment on above: qns RBC (Bld) [#/Vol] [facility] Comment on above: qns WBC (Bld) [#/Vol] [facility] Comment on above: qns [facility] CBC W Auto Differential pane l (Bld)on 09-04-2024 Basophils (Bld) [#/Vol] Normal U [facility] Comment on above: Performed By: #### 1 9123-9 #### KELECHI Garcia ([id number]) [facility] ([facility]) [address] [place] [address] Basophils/100 WBC (Bld) [facility] Comment on above: Performed By: #### 1 9123-9 #### KELECHI Garcia ([id number]) [facility] ([facility]) [address] [place] [address]683 Eosinophils (Bld) [#/Vol] [facility] Comment on above: Performed By: #### 1 9123-9 #### KELECHI Garcia ([id number]) [facility] ([facility]) [address] [place] [address] Eosinophils/100 WBC (Bld) [facility] Comment on above: Performed By: #### 1 9123-9 #### KELECHI Garcia ([id number]) [facility] ([facility]) [address] [place] [address] Erythrocyte distribution width (RBC) [Ratio] [facility] Comment on above: Result Comment: qns Performed By: #### 1 9123-9 #### KELECHI Garcia ([id number]) [facility] ([facility]) [address] [place] [address] Hematocrit (Bld) [Volume fraction] [facility] Comment on above: Result Comment: qns Performed By: #### 1 9123-9 #### KELECHI Garcia ([id number]) [facility] ([facility]) [address] [place] [address]33 Hemoglobin (Bld) [Mass/Vol] [facility] Comment on above: Result Comment: qns Performed By: #### 1 9123-9 #### KELECHI Garcia ([id number]) [facility] ([facility]) [address] [place] [address] 61393 Immature granulocytes/100 WBC (Bld) [facility] Comment on above: Result Comment: qns Performed By: #### 1 9123-9 #### KELECHI Garcia ([id number]) [facility] ([facility]) [address] [place] [address]25[address] Lymphocytes (Bld) [#/Vol] Normal [facility] Comment on above: Performed By: #### 1 9123-9 #### KELECHI Garcia ([id number]) [facility] ([facility]) [address] [place] [address] Lymphocytes/100 WBC (Bld) [facility] Comment on above: Performed By: #### 1 9123-9 #### KELECHI Garcia ([id number]) [facility] ([facility]) [address] [place] [address] MCHC (RBC) [Mass/Vol] Normal [facility] Comment on above: Result Comment: qns Performed By: #### 1 9123-9 #### KELECHI Garcia ([id number]) [facility] ([facility]) [address] [place] [address] MCV (RBC) [Entitic vol] Normal [facility] Comment on above: Result Comment: qns Performed By: #### 1 9123-9 #### KELECHI Garcia ([id number]) [facility] ([facility]) [address] [place] [address] Monocytes (Bld) [#/Vol] Normal [facility] Comment on above: Performed By: #### 1 9123-9 #### KELECHI Garcia ([id number]) [facility] ([facility]) [address] [place] [address] Monocytes/100 WBC (Bld) Normal [facility] Comment on above: Performed By: #### 1 9123-9 #### KELECHI Garcia ([id number]) [facility] ([facility]) [address] [place] [address] Neutrophils (Bld) [#/Vol] [facility] Comment on above: Performed By: #### 1 9123-9 #### KELECHI Garcia ([id number]) [facility] ([facility]) [address] [place] [address] Neutrophils/100 WBC (Bld) [facility] Comment on above: Performed By: #### 1 9123-9 #### KELECHI VELÁZQUEZ L ([id number]) [facility] ([facility]) [address] [place] [address] Platelets (Bld) [#/Vol] Normal [facility] Comment on above: Result Comment: qns Performed By: #### 1 9123-9 #### KELECHI VELÁZQUEZ L ([id number]) [facility] ([facility]) [address] [place] [address] RBC (Bld) [#/Vol] Normal [facility] Comment on above: Result Comment: qns Performed By: #### 1 9123-9 #### KELECHI VELÁZQUEZ L ([id number]) [facility] ([facility]) [address] [place] [address] WBC (Bld) [#/Vol] Normal [facility] Comment on above: Result Comment: qns Performed By: #### 1 9123-9 #### KELECHI VELÁZQUEZ L ([id number]) [facility] ([facility]) [address] [place] [address] Basic metabolic 2000 panelon 09-03-2024 Anion gap [Moles/Vol] 12 mmol/L 10 - 2 0 mmol/L [facility] Calcium [Mass/Vol] 7.8 mg/dL Low 8.6 - 10. 6 mg/dL [facility] Chloride [Moles/Vol] 98 mmol/L 98 - 10 7 mmol/L [facility] CO2 [Moles/Vol] 33 mmol/L High 21 - 32 mmol/L [facility] Creatinine [Mass/Vol] 4.58 mg/dL High 0.50 - 1.05 mg/dL [facility] GFR/1.73 sq M.predicted among non-blacks MDRD (S/P/Bld) [Vol rate/Area] 10 mL/min/{1.73_m2} Low - PINF [facility] Comment on above: Calculations of katy mated GFR are performed using the 2020 CKD-EPI Study Refit equation without the race variable for the IDMS-Traceable creatinine methods. https://jasn.asnjournals.org/content//ASN.2020 132613 Glucose [Mass/Vol] 87 mg/dL 74 - 99 mg/dL [facility] Interpretation and review of laboratory results Abnormal [facility] Potassium [Moles/Vol] 4.3 mmol/L 3.5 - 5.3 mmol/L [facility] Sodium [Moles/Vol] 139 mmol/L 136 - 145 mmol/L [facility] Urea nitrogen [Mass/Vol] 28 mg/dL High 6 - 23 mg/dL [facility] Anion gap [Moles/Vol] 12 mmol/L Normal 10-20 [facility] Comment on above: Performed By: #### 1 9123-9 #### KELECHI Garcia ([id number]) [facility] ([facility]) [address] [place] [address] Calcium [Mass/Vol] 7.8 mg/dL Low 8.6-10.6 [facility] Comment on above: Performed By: #### 1 9123-9 #### KELECHI Garcia ([id number]) [facility] ([facility]) [address] [place] [address] Chloride [Moles/Vol] 98 mmol/L Normal 98-107 [facility] Comment on above: Performed By: #### 1 9123-9 #### KELECHI VELÁZQUEZ L ([id number]) [facility] ([facility]) [id number] [place] [address] CO2 [Moles/Vol] 33 mmol/L High 21-32 [facility] Comment on above: Performed By: #### 1 9123-9 #### KELECHI VELÁZQUEZ L ([id number]) [facility] ([facility]) [address] [place] [address] 25977 Creatinine [Mass/Vol] 4.58 mg/dL High 0.50-1.05 [facility] Comment on above: Performed By: #### 1 9123-9 #### KELECHI WEBSTERER L ([id number]) [facility] ([facility]) [address] [place] [address] 48667 Glomerular filtration rate/1.73 sq M.predicted 10 mL/min/1.73m*2 Low >60 [facility] Comment on above: Result Comment: Calc ulations of estimated GFR are performed using the 2020 CKD-EPI Study Refit equation without the race variable for the IDMS-Traceable creatinine methods. https://jasn.asnjournals.org/content/early//ASN.2020 400537 Performed By: #### 1 9123-9 #### KELECHI VELÁZQUEZ L ([id number]) [facility] ([facility]) [address] [place] [address] 44434 Glucose [Mass/Vol] 87 mg/dL Normal 74-99 [facility] Comment on above: Performed By: #### 1 9123-9 #### KELECHI VELEZMOTZER L ([id number]) [facility] ([facility]) [address] [place] [address] 31568 Potassium [Moles/Vol] 4.3 mmol/L Normal 3.5-5.3 [facility] Comment on above: Performed By: #### 1 9123-9 #### KELECHI VELEZMOTZER L ([id number]) [facility] ([facility]) [address] [place] [address] 09674 Sodium [Moles/Vol] 139 mmol/L Normal 136-145 [facility] Comment on above: Performed By: #### 1 9123-9 #### KELECHI VELEZMOTZER L ([id number]) [facility] ([facility]) [address] [place] [address] 52337 Urea nitrogen [Mass/Vol] 28 mg/dL High 6-23 [facility] Comment on above: Performed By: #### 1 9123-9 #### KELECHI VELEZMOTZER L ([id number]) [facility] ([facility]) [address] [place] [address] 46569 CBC W Auto Differential pane l (Bld)on 09-03-2024 Basophils (Bld) [#/Vol] 0.09 10*3/uL [facility] Basophils/100 WBC (Bld) 0.9 % 0.0 - 2.0 % [facility] Eosinophils (Bld) [#/Vol] 0.53 10*3/uL High [facility] Eosinophils/100 WBC (Bld) 5.5 % 0.0 - 6.0 % [facility] Erythrocyte distribution width (RBC) [Ratio] 15.2 % High 11.5 - 14.5 % [facility] Hematocrit (Bld) [Volume fraction] 26 % Low 36.0 - 46.0 % [facility] Hemoglobin (Bld) [Mass/Vol] 8 g/dL Low 12.0 - 16.0 g/dL [facility] Immature granulocytes (Bld) [#/Vol] 0.05 10*3/uL [facility] Immature granulocytes/100 WBC (Bld) 0.5 % 0.0 - 0.9 % [facility] Comment on above: Immature Granulocyte Count (IG) includes promyelocytes, myelocytes and metamyelocytes but does not include bands. Percent differential counts (%) should be interpreted in the context of the absolute cell counts (cells/UL). Interpretation and review of laboratory results Abnormal [facility] Lymphocytes (Bld) [#/Vol] 1.69 10*3/uL [facility] Lymphocytes/100 WBC (Bld) 17.5 % 13.0 - 44.0 % [facility] MCH (RBC) [Entitic mass] 30.1 pg 26.0 - 34.0 pg [facility] MCHC (RBC) [Mass/Vol] 30.8 g/dL Low 32.0 - 36.0 g/dL [facility] MCV (RBC) [Entitic vol] 98 fL 80 - 100 fL [facility] Monocytes (Bld) [#/Vol] 0.89 10*3/uL High [facility] Monocytes/100 WBC (Bld) 9.2 % 2.0 - 10.0 % [facility] Neutrophils (Bld) [#/Vol] 6.38 10*3/uL High [facility] Comment on above: Percent differential counts (%) should be interpreted in the context of the absolute cell counts (cells/uL). Neutrophils/100 WBC (Bld) 66.4 % 40.0 - 80.0 % [facility] Nucleated RBC/100 WBC (Bld) [Ratio] 0 % [facility] Platelets (Bld) [#/Vol] 429 10*3/uL [facility] RBC (Bld) [#/Vol] 2.66 10*6/uL Low [facility] WBC (Bld) [#/Vol] 9.6 10*3/uL [facility] Basophils (Bld) [#/Vol] 0.09 x10*3/uL Normal 0.00-0.10 [facility] Comment on above: Performed By: #### 1 9123-9 #### KELECHI Garcia ([id number]) [facility] ([facility]) [id number] [place] [address] 22818 Basophils/100 WBC (Bld) 0.9 % Normal 0.0-2.0 U [facility] Comment on above: Performed By: #### 1 9123-9 #### KELECHI Garcia ([id number]) [facility] ([facility]) [address] [place] [address] 65605 Eosinophils (Bld) [#/Vol] 0.53 x10*3/uL High 0.00-0.40 [facility] Comment on above: Performed By: #### 1 9123-9 #### KELECHI Garcia ([id number]) [facility] ([facility]) [address] [place] [address] 74400 Eosinophils/100 WBC (Bld) 5.5 % Normal 0.0-6.0 [facility] Comment on above: Performed By: #### 1 9123-9 #### KELECHI Garcia ([id number]) [facility] ([facility]) [address] [place] [address] 47561 Erythrocyte distribution width (RBC) [Ratio] 15.2 % High 11.5-14.5 [facility] Comment on above: Performed By: #### 1 9123-9 #### KELECHI Garcia ([id number]) [facility] ([facility]) [address] [place] [address] Hematocrit (Bld) [Volume fraction] 26.0 % Low 36.0-46.0 [facility] Comment on above: Performed By: #### 1 9123-9 #### KELECHI Garcia ([id number]) [facility] ([facility]) [id number] [place] [address] 82219 Hemoglobin (Bld) [Mass/Vol] 8.0 g/dL Low 12.0-16.0 [facility] Comment on above: Performed By: #### 1 9123-9 #### KELECHI Garcia ([id number]) [facility] ([facility]) [address] [place] [address] 73714 Immature granulocytes (Bld) [#/Vol] 0.05 x10*3/uL Normal 0.00-0.50 [facility] Comment on above: Performed By: #### 1 9123-9 #### KELECHI Garcia ([id number]) [facility] ([facility]) [address] [place] [address] 65891 Immature granulocytes/100 WBC (Bld) 0.5 % Normal 0.0-0.9 [facility] Comment on above: Result Comment: Jannie ture Granulocyte Count (IG) includes promyelocytes, myelocytes and metamyelocytes but does not include bands. Percent differential counts (%) should be interpreted in the context of the absolute cell counts (cells/UL). Performed By: #### 1 9123-9 #### KELECHI Garcia ([id number]) [facility] ([facility]) [id number] [place] [address]89[address] Lymphocytes (Bld) [#/Vol] 1.69 x10*3/uL Normal 0.80-3.00 [facility] Comment on above: Performed By: #### 1 9123-9 #### KELECHI Garcia ([id number]) [facility] ([facility]) [id number] [place] [address] 16810 Lymphocytes/100 WBC (Bld) 17.5 % Normal 13.0-44.0 [facility] Comment on above: Performed By: #### 1 9123-9 #### KELECHI Garcia ([id number]) [facility] ([facility]) [address] [place] [address] MCH (RBC) [Entitic mass] 30.1 pg Normal 26.0-34.0 [facility] Comment on above: Performed By: #### 1 9123-9 #### KELECHI Garcia ([id number]) [facility] ([facility]) [id number] [place] [address] MCHC (RBC) [Mass/Vol] 30.8 g/dL Low 32.0-36.0 [facility] Comment on above: Performed By: #### 1 9123-9 #### KELECHI Garcia ([id number]) [facility] ([facility]) [id number] [place] [address] MCV (RBC) [Entitic vol] 98 fL Normal 80-100 [facility] Comment on above: Performed By: #### 1 9123-9 #### KELECHI Garcia ([id number]) [facility] ([facility]) [address] [place] [id number] Monocytes (Bld) [#/Vol] 0.89 x10*3/uL High 0.05-0.80 [facility] Comment on above: Performed By: #### 1 9123-9 #### KELECHI Garcia ([id number]) [facility] ([facility]) [id number] [place] [address] 59285 Monocytes/100 WBC (Bld) 9.2 % Normal 2.0-10.0 [facility] Comment on above: Performed By: #### 1 9123-9 #### KELECHI Garcia ([id number]) [facility] ([facility]) [id number] [place] [address]7043 Neutrophils (Bld) [#/Vol] 6.38 x10*3/uL High 1.60-5.50 [facility] Comment on above: Result Comment: Perc ent differential counts (%) should be interpreted in the context of the absolute cell counts (cells/uL). Performed By: #### 1 9123-9 #### KELECHI Garcia ([id number]) [facility] ([facility]) [address] [place] [address] Neutrophils/100 WBC (Bld) 66.4 % Normal 40.0-80.0 [facility] Comment on above: Performed By: #### 1 9123-9 #### KELECHI Garcia ([id number]) [facility] ([facility]) [id number] [place] [address]10 Nucleated RBC/100 WBC (Bld) [Ratio] 0.0 /100 WBCs Normal 0.0-0.0 [facility] Comment on above: Performed By: #### 1 9123-9 #### KELECHI Garcia ([id number]) [facility] ([facility]) [address] [place] [address] Platelets (Bld) [#/Vol] 429 x10*3/uL Normal 150-450 [facility] Comment on above: Performed By: #### 1 9123-9 #### KELECHI Garcia ([id number]) [facility] ([facility]) [id number] [place] [address] 63161 RBC (Bld) [#/Vol] 2.66 x10*6/uL Low 4.00-5.20 [facility] Comment on above: Performed By: #### 1 9123-9 #### KELECHI Garcia ([id number]) [facility] ([facility]) [address] [place] [address] WBC (Bld) [#/Vol] 9.6 x10*3/uL Normal 4.4-11.3 [facility] Comment on above: Performed By: #### 1 9123-9 #### KELECHI Garcia ([id number]) [facility] ([facility]) [address] [place] [address] Basic metabolic 2000 panelon 09-02-2024 Anion gap [Moles/Vol] 17 mmol/L 10 - 2 0 mmol/L [facility] Calcium [Mass/Vol] 7.3 mg/dL Low 8.6 - 10. 6 mg/dL [facility] Chloride [Moles/Vol] 98 mmol/L 98 - 10 7 mmol/L [facility] CO2 [Moles/Vol] 29 mmol/L 21 - 32 mmol/L [facility] Creatinine [Mass/Vol] 6.49 mg/dL High 0.50 - 1.05 mg/dL [facility] GFR/1.73 sq M.predicted among non-blacks MDRD (S/P/Bld) [Vol rate/Area] 6 mL/min/{1.73_m2} Low - PINF [facility] Comment on above: Calculations of katy mated GFR are performed using the 2020 CKD-EPI Study Refit equation without the race variable for the IDMS-Traceable creatinine methods. https://jasn.asnjournals.org/content/early//ASN.2020 504413 Glucose [Mass/Vol] 88 mg/dL 74 - 99 mg/dL [facility] Interpretation and review of laboratory results Abnormal [facility] Potassium [Moles/Vol] 4.4 mmol/L 3.5 - 5.3 mmol/L [facility] Sodium [Moles/Vol] 140 mmol/L 136 - 145 mmol/L [facility] Urea nitrogen [Mass/Vol] 38 mg/dL High 6 - 23 mg/dL [facility] Anion gap [Moles/Vol] 17 mmol/L Normal 10-20 [facility] Comment on above: Performed By: #### 1 9123-9 #### KELECHI Garcia ([id number]) [facility] ([facility]) [address] [place] [id number] Calcium [Mass/Vol] 7.3 mg/dL Low 8.6-10.6 [facility] Comment on above: Performed By: #### 1 9123-9 #### KELECHI Garcia ([id number]) [facility] ([facility]) [address] [place] [address] Chloride [Moles/Vol] 98 mmol/L Normal 98-107 [facility] Comment on above: Performed By: #### 1 9123-9 #### KELECHI VELÁZQUEZ L ([id number]) [facility] ([facility]) [address] [place] [address] CO2 [Moles/Vol] 29 mmol/L Normal 21-32 [facility] Comment on above: Performed By: #### 1 9123-9 #### KELECHI Garcia ([id number]) [facility] ([facility]) [address] [place] [address] Creatinine [Mass/Vol] 6.49 mg/dL High 0.50-1.05 [facility] Comment on above: Performed By: #### 1 9123-9 #### KELECHI Garcia ([id number]) [facility] ([facility]) [address] [place] [address]27 Glomerular filtration rate/1.73 sq M.predicted 6 mL/min/1.73m*2 Low >60 [facility] Comment on above: Result Comment: Calc ulations of estimated GFR are performed using the 2020 CKD-EPI Study Refit equation without the race variable for the IDMS-Traceable creatinine methods. https://jasn.asnjournals.org/content//ASN.2020 695168 Performed By: #### 1 9123-9 #### KELECHI Garcia ([id number]) [facility] ([facility]) [address] [place] [address] Glucose [Mass/Vol] 88 mg/dL Normal 74-99 [facility] Comment on above: Performed By: #### 1 9123-9 #### KELECHI Garcia ([id number]) [facility] ([facility]) [address] [place] [address] Potassium [Moles/Vol] 4.4 mmol/L Normal 3.5-5.3 [facility] Comment on above: Performed By: #### 1 9123-9 #### KELECHI Garcia ([id number]) [facility] ([facility]) [address] [place] [address] Sodium [Moles/Vol] 140 mmol/L Normal 136-145 [facility] Comment on above: Performed By: #### 1 9123-9 #### KELECHI Garcia ([id number]) [facility] ([facility]) [address] [place] [address] Urea nitrogen [Mass/Vol] 38 mg/dL High 6-23 [facility] Comment on above: Performed By: #### 1 9123-9 #### KELECHI Garcia ([id number]) [facility] ([facility]) [address] [place] [address] CBC W Auto Differential pane l (Bld)on 09-02-2024 Basophils (Bld) [#/Vol] 0.11 10*3/uL High [facility] Basophils/100 WBC (Bld) 1.2 % 0.0 - 2.0 % [facility] Eosinophils (Bld) [#/Vol] 0.4 10*3/uL [facility] Eosinophils/100 WBC (Bld) 4.3 % 0.0 - 6.0 % [facility] Erythrocyte distribution width (RBC) [Ratio] 15.5 % High 11.5 - 14.5 % [facility] Hematocrit (Bld) [Volume fraction] 28.8 % Low 36.0 - 46.0 % [facility] Hemoglobin (Bld) [Mass/Vol] 8.8 g/dL Low 12.0 - 16.0 g/dL [facility] Immature granulocytes (Bld) [#/Vol] 0.06 10*3/uL [facility] Immature granulocytes/100 WBC (Bld) 0.6 % 0.0 - 0.9 % [facility] Comment on above: Immature Granulocyte Count (IG) includes promyelocytes, myelocytes and metamyelocytes but does not include bands. Percent differential counts (%) should be interpreted in the context of the absolute cell counts (cells/UL). Interpretation and review of laboratory results Abnormal [facility] Lymphocytes (Bld) [#/Vol] 1.07 10*3/uL [facility] Lymphocytes/100 WBC (Bld) 11.5 % 13.0 - 44.0 % [facility] MCH (RBC) [Entitic mass] 31 pg 26.0 - 34.0 pg [facility] MCHC (RBC) [Mass/Vol] 30.6 g/dL Low 32.0 - 36.0 g/dL [facility] MCV (RBC) [Entitic vol] 101 fL High 80 - 100 fL [facility] Monocytes (Bld) [#/Vol] 0.79 10*3/uL [facility] Monocytes/100 WBC (Bld) 8.5 % 2.0 - 10.0 % [facility] Neutrophils (Bld) [#/Vol] 6.86 10*3/uL High [facility] Comment on above: Percent differential counts (%) should be interpreted in the context of the absolute cell counts (cells/uL). Neutrophils/100 WBC (Bld) 73.9 % 40.0 - 80.0 % [facility] Nucleated RBC/100 WBC (Bld) [Ratio] 0 % [facility] Platelets (Bld) [#/Vol] 430 10*3/uL [facility] RBC (Bld) [#/Vol] 2.84 10*6/uL Low [facility] WBC (Bld) [#/Vol] 9.3 10*3/uL [facility] Basophils (Bld) [#/Vol] 0.11 x10*3/uL High 0.00-0.10 [facility] Comment on above: Performed By: #### 1 9123-9 #### KELECHI Garcia ([id number]) [facility] ([facility]) [address] [place] [address] Basophils/100 WBC (Bld) 1.2 % Normal 0.0-2.0 [facility] Comment on above: Performed By: #### 1 9123-9 #### KELECHI Garcia ([id number]) [facility] ([facility]) [address] [place] [address] 38293 Eosinophils (Bld) [#/Vol] 0.40 x10*3/uL Normal 0.00-0.40 [facility] Comment on above: Performed By: #### 1 9123-9 #### KELECHI Garcia ([id number]) [facility] ([facility]) [address] [place] [address] 24146 Eosinophils/100 WBC (Bld) 4.3 % Normal 0.0-6.0 [facility] Comment on above: Performed By: #### 1 9123-9 #### KELECHI Garcia ([id number]) [facility] ([facility]) [address] [place] [address] 80458 Erythrocyte distribution width (RBC) [Ratio] 15.5 % High 11.5-14.5 [facility] Comment on above: Performed By: #### 1 9123-9 #### KELECHI Garcia ([id number]) [facility] ([facility]) [address] [place] [address] 89396 Hematocrit (Bld) [Volume fraction] 28.8 % Low 36.0-46.0 [facility] Comment on above: Performed By: #### 1 9123-9 #### KELECHI Garcia ([id number]) [facility] ([facility]) [address] [place] [address] 26711 Hemoglobin (Bld) [Mass/Vol] 8.8 g/dL Low 12.0-16.0 [facility] Comment on above: Performed By: #### 1 9123-9 #### KELECHI Garcia ([id number]) [facility] ([facility]) [address] [place] [address] 35480 Immature granulocytes (Bld) [#/Vol] 0.06 x10*3/uL Normal 0.00-0.50 [facility] Comment on above: Performed By: #### 1 9123-9 #### KELECHI Garcia ([id number]) [facility] ([facility]) [address] [place] [address] 85727 Immature granulocytes/100 WBC (Bld) 0.6 % Normal 0.0-0.9 [facility] Comment on above: Result Comment: Jannie ture Granulocyte Count (IG) includes promyelocytes, myelocytes and metamyelocytes but does not include bands. Percent differential counts (%) should be interpreted in the context of the absolute cell counts (cells/UL). Performed By: #### 1 9123-9 #### KELECHI Garcia ([id number]) [facility] ([facility]) [address] [place] [address] 43849 Lymphocytes (Bld) [#/Vol] 1.07 x10*3/uL Normal 0.80-3.00 [facility] Comment on above: Performed By: #### 1 9123-9 #### KELECHI Garcia ([id number]) [facility] ([facility]) [address] [place] [address] 27618 Lymphocytes/100 WBC (Bld) 11.5 % Normal 13.0-44.0 [facility] Comment on above: Performed By: #### 1 9123-9 #### KELECHI Garcia ([id number]) [facility] ([facility]) [address] [place] [address] 46164 MCH (RBC) [Entitic mass] 31.0 pg Normal 26.0-34.0 [facility] Comment on above: Performed By: #### 1 9123-9 #### KELECHI Garcia ([id number]) [facility] ([facility]) [address] [place] [address] 60873 MCHC (RBC) [Mass/Vol] 30.6 g/dL Low 32.0-36.0 [facility] Comment on above: Performed By: #### 1 9123-9 #### KELECHI Garcia ([id number]) [facility] ([facility]) [id number] [place] [address]104 MCV (RBC) [Entitic vol] 101 fL High 80-100 [facility] Comment on above: Performed By: #### 1 9123-9 #### KELECHI Garcia ([id number]) [facility] ([facility]) [address] [place] [address] Monocytes (Bld) [#/Vol] 0.79 x10*3/uL Normal 0.05-0.80 [facility] Comment on above: Performed By: #### 1 9123-9 #### KELECHI Garcia ([id number]) [facility] ([facility]) [address] [place] [address] Monocytes/100 WBC (Bld) 8.5 % Normal 2.0-10.0 [facility] Comment on above: Performed By: #### 1 9123-9 #### KELECHI Garcia ([id number]) [facility] ([facility]) [id number] [place] [address] 31587 Neutrophils (Bld) [#/Vol] 6.86 x10*3/uL High 1.60-5.50 [facility] Comment on above: Result Comment: Perc ent differential counts (%) should be interpreted in the context of the absolute cell counts (cells/uL). Performed By: #### 1 9123-9 #### KELECHI Garcia ([id number]) [facility] ([facility]) [address] [place] [address] 26188 Neutrophils/100 WBC (Bld) 73.9 % Normal 40.0-80.0 [facility] Comment on above: Performed By: #### 1 9123-9 #### KELECHI Garcia ([id number]) [facility] ([facility]) [address] [place] [address] 07782 Nucleated RBC/100 WBC (Bld) [Ratio] 0.0 /100 WBCs Normal 0.0-0.0 [facility] Comment on above: Performed By: #### 1 9123-9 #### KELECHI Garcia ([id number]) [facility] ([facility]) [address] [place] [address] Platelets (Bld) [#/Vol] 430 x10*3/uL Normal 150-450 [facility] Comment on above: Performed By: #### 1 9123-9 #### KELECHI Garcia ([id number]) [facility] ([facility]) [address] [place] [address] RBC (Bld) [#/Vol] 2.84 x10*6/uL Low 4.00-5.20 [facility] Comment on above: Performed By: #### 1 9123-9 #### KELECHI VELÁZQUEZ L ([id number]) [facility] ([facility]) [address] [place] [address] WBC (Bld) [#/Vol] 9.3 x10*3/uL Normal 4.4-11.3 [facility] Comment on above: Performed By: #### 1 9123-9 #### KELECHI Garcia ([id number]) [facility] ([facility]) [address] [place] [address] Basophils (Bld) [#/Vol] 0.13 10*3/uL High [facility] Basophils/100 WBC (Bld) 1.5 % 0.0 - 2.0 % [facility] Eosinophils (Bld) [#/Vol] 0.42 10*3/uL High [facility] Eosinophils/100 WBC (Bld) 4.8 % 0.0 - 6.0 % [facility] Erythrocyte distribution width (RBC) [Ratio] 15.3 % High 11.5 - 14.5 % [facility] Hematocrit (Bld) [Volume fraction] 27.3 % Low 36.0 - 46.0 % [facility] Hemoglobin (Bld) [Mass/Vol] 8.5 g/dL Low 12.0 - 16.0 g/dL [facility] Immature granulocytes (Bld) [#/Vol] 0.04 10*3/uL [facility] Immature granulocytes/100 WBC (Bld) 0.5 % 0.0 - 0.9 % [facility] Comment on above: Immature Granulocyte Count (IG) includes promyelocytes, myelocytes and metamyelocytes but does not include bands. Percent differential counts (%) should be interpreted in the context of the absolute cell counts (cells/UL). Interpretation and review of laboratory results Abnormal [facility] Lymphocytes (Bld) [#/Vol] 1.29 10*3/uL [facility] Lymphocytes/100 WBC (Bld) 14.6 % 13.0 - 44.0 % [facility] MCH (RBC) [Entitic mass] 30.6 pg 26.0 - 34.0 pg [facility] MCHC (RBC) [Mass/Vol] 31.1 g/dL Low 32.0 - 36.0 g/dL [facility] MCV (RBC) [Entitic vol] 98 fL 80 - 100 fL [facility] Monocytes (Bld) [#/Vol] 0.77 10*3/uL [facility] Monocytes/100 WBC (Bld) 8.7 % 2.0 - 10.0 % [facility] Neutrophils (Bld) [#/Vol] 6.16 10*3/uL High [facility] Comment on above: Percent differential counts (%) should be interpreted in the context of the absolute cell counts (cells/uL). Neutrophils/100 WBC (Bld) 69.9 % 40.0 - 80.0 % [facility] Nucleated RBC/100 WBC (Bld) [Ratio] 0 % [facility] Platelets (Bld) [#/Vol] 399 10*3/uL [facility] RBC (Bld) [#/Vol] 2.78 10*6/uL Low [facility] WBC (Bld) [#/Vol] 8.8 10*3/uL [facility] Basophils (Bld) [#/Vol] 0.13 x10*3/uL High 0.00-0.10 [facility] Comment on above: Performed By: #### 1 9123-9 #### KELECHI Garcia ([id number]) [facility] ([facility]) [address] [place] [address] Basophils/100 WBC (Bld) 1.5 % Normal 0.0-2.0 [facility] Comment on above: Performed By: #### 1 9123-9 #### KELECHI Garcia ([id number]) [facility] ([facility]) [address] [place] [address] 07043 Eosinophils (Bld) [#/Vol] 0.42 x10*3/uL High 0.00-0.40 [facility] Comment on above: Performed By: #### 1 9123-9 #### KELECHI Garcia ([id number]) [facility] ([facility]) [address] [place] [address] 83636 Eosinophils/100 WBC (Bld) 4.8 % Normal 0.0-6.0 [facility] Comment on above: Performed By: #### 1 9123-9 #### KELECHI Garcia ([id number]) [facility] ([facility]) [address] [place] [address] 45870 Erythrocyte distribution width (RBC) [Ratio] 15.3 % High 11.5-14.5 [facility] Comment on above: Performed By: #### 1 9123-9 #### KELECHI Garcia ([id number]) [facility] ([facility]) [address] [place] [address] 65059 Hematocrit (Bld) [Volume fraction] 27.3 % Low 36.0-46.0 [facility] Comment on above: Performed By: #### 1 9123-9 #### KELECHI Garcia ([id number]) [facility] ([facility]) [address] [place] [address] 87335 Hemoglobin (Bld) [Mass/Vol] 8.5 g/dL Low 12.0-16.0 [facility] Comment on above: Performed By: #### 1 9123-9 #### KELECHI Garcia ([id number]) [facility] ([facility]) [address] [place] [address] 55139 Immature granulocytes (Bld) [#/Vol] 0.04 x10*3/uL Normal 0.00-0.50 [facility] Comment on above: Performed By: #### 1 9123-9 #### KELECHI Garcia ([id number]) [facility] ([facility]) [address] [place] [address] Immature granulocytes/100 WBC (Bld) 0.5 % Normal 0.0-0.9 [facility] Comment on above: Result Comment: Jannie ture Granulocyte Count (IG) includes promyelocytes, myelocytes and metamyelocytes but does not include bands. Percent differential counts (%) should be interpreted in the context of the absolute cell counts (cells/UL). Performed By: #### 1 9123-9 #### KELECHI Garcia ([id number]) [facility] ([facility]) [id number] [place] [address] 94125 Lymphocytes (Bld) [#/Vol] 1.29 x10*3/uL Normal 0.80-3.00 [facility] Comment on above: Performed By: #### 1 9123-9 #### KELECHI Garcia ([id number]) [facility] ([facility]) [address] [place] [address] Lymphocytes/100 WBC (Bld) 14.6 % Normal 13.0-44.0 [facility] Comment on above: Performed By: #### 1 9123-9 #### KELECHI Garcia ([id number]) [facility] ([facility]) [address] [place] [address] MCH (RBC) [Entitic mass] 30.6 pg Normal 26.0-34.0 [facility] Comment on above: Performed By: #### 1 9123-9 #### KELECHI Garcia ([id number]) [facility] ([facility]) [address] [place] [address] 20955 MCHC (RBC) [Mass/Vol] 31.1 g/dL Low 32.0-36.0 [facility] Comment on above: Performed By: #### 1 9123-9 #### KELECHI Garcia ([id number]) [facility] ([facility]) [address] [place] [address] 19196 MCV (RBC) [Entitic vol] 98 fL Normal 80-100 [facility] Comment on above: Performed By: #### 1 9123-9 #### KELECHI Garcia ([id number]) [facility] ([facility]) [address] [place] [address] Monocytes (Bld) [#/Vol] 0.77 x10*3/uL Normal 0.05-0.80 [facility] Comment on above: Performed By: #### 1 9123-9 #### KELECHI Garcia ([id number]) [facility] ([facility]) [address] [place] [address] Monocytes/100 WBC (Bld) 8.7 % Normal 2.0-10.0 [facility] Comment on above: Performed By: #### 1 9123-9 #### KELECHI Garcia ([id number]) [facility] ([facility]) [address] [place] [address] 41289 Neutrophils (Bld) [#/Vol] 6.16 x10*3/uL High 1.60-5.50 [facility] Comment on above: Result Comment: Perc ent differential counts (%) should be interpreted in the context of the absolute cell counts (cells/uL). Performed By: #### 1 9123-9 #### KELECHI Garcia ([id number]) [facility] ([facility]) [address] [place] [address] Neutrophils/100 WBC (Bld) 69.9 % Normal 40.0-80.0 [facility] Comment on above: Performed By: #### 1 9123-9 #### KELECHI Garcia ([id number]) [facility] ([facility]) [address] [place] [address] Nucleated RBC/100 WBC (Bld) [Ratio] 0.0 /100 WBCs Normal 0.0-0.0 [facility] Comment on above: Performed By: #### 1 9123-9 #### KELECHI Garcia ([id number]) [facility] ([facility]) [address] [place] [address] Platelets (Bld) [#/Vol] 399 x10*3/uL Normal 150-450 [facility] Comment on above: Performed By: #### 1 9123-9 #### KELECHI Garcia ([id number]) [facility] ([facility]) [address] [place] [address] RBC (Bld) [#/Vol] 2.78 x10*6/uL Low 4.00-5.20 [facility] Comment on above: Performed By: #### 1 9123-9 #### KELECHI Garcia ([id number]) [facility] ([facility]) [address] [place] [address] WBC (Bld) [#/Vol] 8.8 x10*3/uL Normal 4.4-11.3 [facility] Comment on above: Performed By: #### 1 9123-9 #### KELECHI Garcia ([id number]) [facility] ([facility]) [address] [place] [address] Basophils (Bld) [#/Vol] 0.11 10*3/uL High [facility] Basophils/100 WBC (Bld) 1.1 % 0.0 - 2.0 % [facility] Eosinophils (Bld) [#/Vol] 0.49 10*3/uL High [facility] Eosinophils/100 WBC (Bld) 5 % 0.0 - 6.0 % [facility] Erythrocyte distribution width (RBC) [Ratio] 15.6 % High 11.5 - 14.5 % [facility] Hematocrit (Bld) [Volume fraction] 24 % Low 36.0 - 46.0 % [facility] Hemoglobin (Bld) [Mass/Vol] 7.7 g/dL Low 12.0 - 16.0 g/dL [facility] Immature granulocytes (Bld) [#/Vol] 0.04 10*3/uL [facility] Immature granulocytes/100 WBC (Bld) 0.4 % 0.0 - 0.9 % [facility] Comment on above: Immature Granulocyte Count (IG) includes promyelocytes, myelocytes and metamyelocytes but does not include bands. Percent differential counts (%) should be interpreted in the context of the absolute cell counts (cells/UL). Interpretation and review of laboratory results Abnormal [facility] Lymphocytes (Bld) [#/Vol] 1.7 10*3/uL [facility] Lymphocytes/100 WBC (Bld) 17.5 % 13.0 - 44.0 % [facility] MCH (RBC) [Entitic mass] 30.6 pg 26.0 - 34.0 pg [facility] MCHC (RBC) [Mass/Vol] 32.1 g/dL 32.0 - 36.0 g/dL [facility] MCV (RBC) [Entitic vol] 95 fL 80 - 100 fL [facility] Monocytes (Bld) [#/Vol] 0.79 10*3/uL [facility] Monocytes/100 WBC (Bld) 8.1 % 2.0 - 10.0 % [facility] Neutrophils (Bld) [#/Vol] 6.58 10*3/uL High [facility] Comment on above: Percent differential counts (%) should be interpreted in the context of the absolute cell counts (cells/uL). Neutrophils/100 WBC (Bld) 67.9 % 40.0 - 80.0 % [facility] Nucleated RBC/100 WBC (Bld) [Ratio] 0 % [facility] Platelets (Bld) [#/Vol] 392 10*3/uL [facility] RBC (Bld) [#/Vol] 2.52 10*6/uL Low [facility] WBC (Bld) [#/Vol] 9.7 10*3/uL [facility] Basophils (Bld) [#/Vol] 0.11 x10*3/uL High 0.00-0.10 [facility] Comment on above: Performed By: #### 1 [id number] #### KELECHI Garcia ([id number]) [facility] ([facility]) [id number] [place] [address] Basophils/100 WBC (Bld) 1.1 % Normal 0.0-2.0 [facility] Comment on above: Performed By: #### 1 9123-9 #### KELECHI Garcia ([id number]) [facility] ([facility]) [address] [place] [address] 64814 Eosinophils (Bld) [#/Vol] 0.49 x10*3/uL High 0.00-0.40 [facility] Comment on above: Performed By: #### 1 9123-9 #### KELECHI Garcia ([id number]) [facility] ([facility]) [address] [place] [address] 10398 Eosinophils/100 WBC (Bld) 5.0 % Normal 0.0-6.0 [facility] Comment on above: Performed By: #### 1 9123-9 #### KELECHI Garcia ([id number]) [facility] ([facility]) [address] [place] [address] 92203 Erythrocyte distribution width (RBC) [Ratio] 15.6 % High 11.5-14.5 [facility] Comment on above: Performed By: #### 1 9123-9 #### KELECHI Garcia ([id number]) [facility] ([facility]) [address] [place] [address] 52849 Hematocrit (Bld) [Volume fraction] 24.0 % Low 36.0-46.0 [facility] Comment on above: Performed By: #### 1 9123-9 #### KELECHI Garcia ([id number]) [facility] ([facility]) [address] [place] [address] 74264 Hemoglobin (Bld) [Mass/Vol] 7.7 g/dL Low 12.0-16.0 [facility] Comment on above: Performed By: #### 1 9123-9 #### KELECHI Garcia ([id number]) [facility] ([facility]) [address] [place] [address] 84046 Immature granulocytes (Bld) [#/Vol] 0.04 x10*3/uL Normal 0.00-0.50 [facility] Comment on above: Performed By: #### 1 9123-9 #### KELECHI Garcia ([id number]) [facility] ([facility]) [address] [place] [address] Immature granulocytes/100 WBC (Bld) 0.4 % Normal 0.0-0.9 [facility] Comment on above: Result Comment: Jannie ture Granulocyte Count (IG) includes promyelocytes, myelocytes and metamyelocytes but does not include bands. Percent differential counts (%) should be interpreted in the context of the absolute cell counts (cells/UL). Performed By: #### 1 9123-9 #### KELECHI Garcia ([id number]) [facility] ([facility]) [address] [place] [address] 62762 Lymphocytes (Bld) [#/Vol] 1.70 x10*3/uL Normal 0.80-3.00 [facility] Comment on above: Performed By: #### 1 9123-9 #### KELECHI Garcia ([id number]) [facility] ([facility]) [address] [place] [address] Lymphocytes/100 WBC (Bld) 17.5 % Normal 13.0-44.0 [facility] Comment on above: Performed By: #### 1 9123-9 #### KELECHI Garcia ([id number]) [facility] ([facility]) [address] [place] [address] MCH (RBC) [Entitic mass] 30.6 pg Normal 26.0-34.0 [facility] Comment on above: Performed By: #### 1 9123-9 #### KELECHI Garcia ([id number]) [facility] ([facility]) [id number] [place] [address] 05593 MCHC (RBC) [Mass/Vol] 32.1 g/dL Normal 32.0-36.0 [facility] Comment on above: Performed By: #### 1 9123-9 #### KELECHI Garcia ([id number]) [facility] ([facility]) [address] [place] [address] 58461 MCV (RBC) [Entitic vol] 95 fL Normal 80-100 [facility] Comment on above: Performed By: #### 1 9123-9 #### KELECHI Garcia ([id number]) [facility] ([facility]) [address] [place] [address] Monocytes (Bld) [#/Vol] 0.79 x10*3/uL Normal 0.05-0.80 [facility] Comment on above: Performed By: #### 1 9123-9 #### KELECHI Garcia ([id number]) [facility] ([facility]) [address] [place] [address] Monocytes/100 WBC (Bld) 8.1 % Normal 2.0-10.0 [facility] Comment on above: Performed By: #### 1 9123-9 #### KELECHI Garcia ([id number]) [facility] ([facility]) [address] [place] [address] 04070 Neutrophils (Bld) [#/Vol] 6.58 x10*3/uL High 1.60-5.50 [facility] Comment on above: Result Comment: Perc ent differential counts (%) should be interpreted in the context of the absolute cell counts (cells/uL). Performed By: #### 1 9123-9 #### KELECHI Garcia ([id number]) [facility] ([facility]) [address] [place] [address] Neutrophils/100 WBC (Bld) 67.9 % Normal 40.0-80.0 [facility] Comment on above: Performed By: #### 1 9123-9 #### KELECHI Garcia ([id number]) [facility] ([facility]) [address] [place] [address] Nucleated RBC/100 WBC (Bld) [Ratio] 0.0 /100 WBCs Normal 0.0-0.0 [facility] Comment on above: Performed By: #### 1 9123-9 #### KELECHI Garcia ([id number]) [facility] ([facility]) [address] [place] [address] Platelets (Bld) [#/Vol] 392 x10*3/uL Normal 150-450 [facility] Comment on above: Performed By: #### 1 9123-9 #### KELECHI Garcia ([id number]) [facility] ([facility]) [address] [place] [address] 87691 RBC (Bld) [#/Vol] 2.52 x10*6/uL Low 4.00-5.20 [facility] Comment on above: Performed By: #### 1 9123-9 #### KELECHI Garcia ([id number]) [facility] ([facility]) [address] [place] [address] WBC (Bld) [#/Vol] 9.7 x10*3/uL Normal 4.4-11.3 [facility] Comment on above: Performed By: #### 1 9123-9 #### KELECHI Garcia ([id number]) [facility] ([facility]) [address] [place] [address] 77128 Prepare RBC: 1 Unitson 09-02 Blood Expiration Date 09/08/2024 11:59:00 PM EDT [facility] Dispense Status PT [facility] PRODUCT BLOOD TYPE 5100 [facility] PRODUCT CODE [id number] [facility] Unit ABO O [facility] Unit Number [id number] [facility] Unit RH Positive [facility] UNIT VOLUME 350 [facility] XM INTEP COMP [facility] Basic metabolic 2000 panelon 09-01-2024 Anion gap [Moles/Vol] 15 mmol/L 10 - 2 0 mmol/L [facility] Calcium [Mass/Vol] 7.7 mg/dL Low 8.6 - 10. 6 mg/dL [facility] Chloride [Moles/Vol] 97 mmol/L Low 98 - 10 7 mmol/L [facility] CO2 [Moles/Vol] 33 mmol/L High 21 - 32 mmol/L [facility] Creatinine [Mass/Vol] 4.41 mg/dL High 0.50 - 1.05 mg/dL [facility] GFR/1.73 sq M.predicted among non-blacks MDRD (S/P/Bld) [Vol rate/Area] 10 mL/min/{1.73_m2} Low - PINF [facility] Comment on above: Calculations of katy mated GFR are performed using the 2020 CKD-EPI Study Refit equation without the race variable for the IDMS-Traceable creatinine methods. https://jasn.asnjournals.org/content//ASN.2020 582833 Glucose [Mass/Vol] 92 mg/dL 74 - 99 mg/dL [facility] Potassium [Moles/Vol] 3.7 mmol/L 3.5 - 5.3 mmol/L [facility] Sodium [Moles/Vol] 141 mmol/L 136 - 145 mmol/L [facility] Urea nitrogen [Mass/Vol] 23 mg/dL 6 - 23 mg/dL [facility] Anion gap [Moles/Vol] 15 mmol/L Normal 10-20 [facility] Comment on above: Performed By: #### 5 7021-8 #### KELECHI VELÁZQUEZ L ([id number]) [facility] ([facility]) [address] [place] [address] Calcium [Mass/Vol] 7.7 mg/dL Low 8.6-10.6 [facility] Comment on above: Performed By: #### 5 7021-8 #### KELECHI VELÁZQUEZ L ([id number]) [facility] ([facility]) [address] [place] [address] Chloride [Moles/Vol] 97 mmol/L Low 98-107 [facility] Comment on above: Performed By: #### 5 7021-8 #### KELECHI VELÁZQUEZ L ([id number]) [facility] ([facility]) [address] [place] [address] CO2 [Moles/Vol] 33 mmol/L High 21-32 [facility] Comment on above: Performed By: #### 5 7021-8 #### KELECHI VELÁZQUEZ L ([id number]) [facility] ([facility]) [address] [place] [address] Creatinine [Mass/Vol] 4.41 mg/dL High 0.50-1.05 [facility] Comment on above: Performed By: #### 5 7021-8 #### KELECHI Garcia ([id number]) [facility] ([facility]) [address] [place] [address] Glomerular filtration rate/1.73 sq M.predicted 10 mL/min/1.73m*2 Low >60 [facility] Comment on above: Result Comment: Calc ulations of estimated GFR are performed using the 2020 CKD-EPI Study Refit equation without the race variable for the IDMS-Traceable creatinine methods. https://jasn.asnjournals.org/content/early//ASN.2020 490897 Performed By: #### 5 7021-8 #### KELECHI Garcia ([id number]) [facility] ([facility]) [id number] [place] [address] 09049 Glucose [Mass/Vol] 92 mg/dL Normal 74-99 [facility] Comment on above: Performed By: #### 5 7021-8 #### KELECHI Garcia ([id number]) [facility] ([facility]) [address] [place] [address] 03234 Potassium [Moles/Vol] 3.7 mmol/L Normal 3.5-5.3 [facility] Comment on above: Performed By: #### 5 7021-8 #### KELECHI VELÁZQUEZ L ([id number]) [facility] ([facility]) [address] [place] [address] 99759 Sodium [Moles/Vol] 141 mmol/L Normal 136-145 [facility] Comment on above: Performed By: #### 5 7021-8 #### KELECHI VELÁZQUEZ L ([id number]) [facility] ([facility]) [address] [place] [address] 09171 Urea nitrogen [Mass/Vol] 23 mg/dL Normal 6-23 [facility] Comment on above: Performed By: #### 5 7021-8 #### KELECHI Garcia ([id number]) [facility] ([facility]) [address] [place] [address] 04444 CBC W Auto Differential pane l (Bld)on 09-01-2024 Basophils (Bld) [#/Vol] 0.12 x10*3/uL High 0.00-0.10 [facility] Comment on above: Performed By: #### 5 7021-8 #### KELECHI Garcia ([id number]) [facility] ([facility]) [address] [place] [address] 53759 Basophils/100 WBC (Bld) 1.0 % Normal 0.0-2.0 [facility] Comment on above: Performed By: #### 5 7021-8 #### KELECHI Garcia ([id number]) [facility] ([facility]) [address] [place] [address] 44388 Eosinophils (Bld) [#/Vol] 0.23 x10*3/uL Normal 0.00-0.40 [facility] Comment on above: Performed By: #### 5 7021-8 #### KELECHI Garcia ([id number]) [facility] ([facility]) [address] [place] [address] 30515 Eosinophils/100 WBC (Bld) 1.9 % Normal 0.0-6.0 [facility] Comment on above: Performed By: #### 5 7021-8 #### KELECHI Garcia ([id number]) [facility] ([facility]) [address] [place] [address] 45049 Erythrocyte distribution width (RBC) [Ratio] 15.7 % High 11.5-14.5 [facility] Comment on above: Performed By: #### 5 7021-8 #### KELECHI Garcia ([id number]) [facility] ([facility]) [address] [place] [address] 84597 Hematocrit (Bld) [Volume fraction] 21.1 % Low 36.0-46.0 [facility] Comment on above: Performed By: #### 5 7021-8 #### KELECHI Garcia ([id number]) [facility] ([facility]) [address] [place] [address] Hemoglobin (Bld) [Mass/Vol] 6.8 g/dL Low 12.0-16.0 [facility] Comment on above: Performed By: #### 5 7021-8 #### KELECHI VELEZMOZULEIKAER L ([id number]) [facility] ([facility]) [address] [place] [address] 37995 Immature granulocytes (Bld) [#/Vol] 0.04 x10*3/uL Normal 0.00-0.50 [facility] Comment on above: Performed By: #### 5 7021-8 #### KELECHI VELÁZQUEZ L ([id number]) [facility] ([facility]) [id number] [place] [address] 39371 Immature granulocytes/100 WBC (Bld) 0.3 % Normal 0.0-0.9 [facility] Comment on above: Result Comment: Jannie ture Granulocyte Count (IG) includes promyelocytes, myelocytes and metamyelocytes but does not include bands. Percent differential counts (%) should be interpreted in the context of the absolute cell counts (cells/UL). Performed By: #### 5 7021-8 #### KELECHI VELÁZQUEZ L ([id number]) [facility] ([facility]) [id number] [place] [address] 91415 Lymphocytes (Bld) [#/Vol] 1.00 x10*3/uL Normal 0.80-3.00 [facility] Comment on above: Performed By: #### 5 7021-8 #### KELECHI VELEZMOTZER L ([id number]) [facility] ([facility]) [address] [place] [address] Lymphocytes/100 WBC (Bld) 8.1 % Normal 13.0-44.0 [facility] Comment on above: Performed By: #### 5 7021-8 #### KELECHI VELEZMOTZER L ([id number]) [facility] ([facility]) [address] [place] [address] 47908 MCH (RBC) [Entitic mass] 30.4 pg Normal 26.0-34.0 [facility] Comment on above: Performed By: #### 5 7021-8 #### KELECHI Garcia ([id number]) [facility] ([facility]) [address] [place] [address] 00935 MCHC (RBC) [Mass/Vol] 32.2 g/dL Normal 32.0-36.0 [facility] Comment on above: Performed By: #### 5 7021-8 #### KELECHI Garcia ([id number]) [facility] ([facility]) [address] [place] [address] 04833 MCV (RBC) [Entitic vol] 94 fL Normal 80-100 [facility] Comment on above: Performed By: #### 5 7021-8 #### KELECHI Garcia ([id number]) [facility] ([facility]) [address] [place] [address] 24098 Monocytes (Bld) [#/Vol] 1.23 x10*3/uL High 0.05-0.80 [facility] Comment on above: Performed By: #### 5 7021-8 #### KELECHI Garcia ([id number]) [facility] ([facility]) [address] [place] [address] 06575 Monocytes/100 WBC (Bld) 10.0 % Normal 2.0-10.0 [facility] Comment on above: Performed By: #### 5 7021-8 #### KELECHI Garcia ([id number]) [facility] ([facility]) [address] [place] [address] 60899 Neutrophils (Bld) [#/Vol] 9.70 x10*3/uL High 1.60-5.50 [facility] Comment on above: Result Comment: Perc ent differential counts (%) should be interpreted in the context of the absolute cell counts (cells/uL). Performed By: #### 5 7021-8 #### KELECHI Garcia ([id number]) [facility] ([facility]) [address] [place] [address] 09353 Neutrophils/100 WBC (Bld) 78.7 % Normal 40.0-80.0 [facility] Comment on above: Performed By: #### 5 7021-8 #### KELECHI Garcia ([id number]) [facility] ([facility]) [address] [place] [address] 86472 Nucleated RBC/100 WBC (Bld) [Ratio] 0.0 /100 WBCs Normal 0.0-0.0 [facility] Comment on above: Performed By: #### 5 7021-8 #### KELECHI Garcia ([id number]) [facility] ([facility]) [address] [place] [address] 88198 Platelets (Bld) [#/Vol] 366 x10*3/uL Normal 150-450 [facility] Comment on above: Performed By: #### 5 7021-8 #### KELECHI Garcia ([id number]) [facility] ([facility]) [address] [place] [address] 57144 RBC (Bld) [#/Vol] 2.24 x10*6/uL Low 4.00-5.20 [facility] Comment on above: Performed By: #### 5 7021-8 #### KELECHI Garcia ([id number]) [facility] ([facility]) [address] [place] [address] 60412 WBC (Bld) [#/Vol] 12.3 x10*3/uL High 4.4-11.3 [facility] Comment on above: Performed By: #### 5 7021-8 #### KELECHI Garcia ([id number]) [facility] ([facility]) [address] [place] [address] 59026 Basophils (Bld) [#/Vol] 0.09 10*3/uL [facility] Basophils/100 WBC (Bld) 0.8 % 0.0 - 2.0 % [facility] Eosinophils (Bld) [#/Vol] 0.38 10*3/uL [facility] Eosinophils/100 WBC (Bld) 3.4 % 0.0 - 6.0 % [facility] Erythrocyte distribution width (RBC) [Ratio] 16 % High 11.5 - 14.5 % [facility] Hematocrit (Bld) [Volume fraction] 23.5 % Low 36.0 - 46.0 % [facility] Hemoglobin (Bld) [Mass/Vol] 7.9 g/dL Low 12.0 - 16.0 g/dL [facility] Immature granulocytes (Bld) [#/Vol] 0.04 10*3/uL [facility] Immature granulocytes/100 WBC (Bld) 0.4 % 0.0 - 0.9 % [facility] Comment on above: Immature Granulocyte Count (IG) includes promyelocytes, myelocytes and metamyelocytes but does not include bands. Percent differential counts (%) should be interpreted in the context of the absolute cell counts (cells/UL). Interpretation and review of laboratory results Abnormal [facility] Lymphocytes (Bld) [#/Vol] 1.57 10*3/uL [facility] Lymphocytes/100 WBC (Bld) 14.1 % 13.0 - 44.0 % [facility] MCH (RBC) [Entitic mass] 31.9 pg 26.0 - 34.0 pg [facility] MCHC (RBC) [Mass/Vol] 33.6 g/dL 32.0 - 36.0 g/dL [facility] MCV (RBC) [Entitic vol] 95 fL 80 - 100 fL [facility] Monocytes (Bld) [#/Vol] 1.17 10*3/uL High [facility] Monocytes/100 WBC (Bld) 10.5 % 2.0 - 10.0 % [facility] Neutrophils (Bld) [#/Vol] 7.86 10*3/uL High [facility] Comment on above: Percent differential counts (%) should be interpreted in the context of the absolute cell counts (cells/uL). Neutrophils/100 WBC (Bld) 70.8 % 40.0 - 80.0 % [facility] Nucleated RBC/100 WBC (Bld) [Ratio] 0 % [facility] Platelets (Bld) [#/Vol] 369 10*3/uL [facility] RBC (Bld) [#/Vol] 2.48 10*6/uL Low [facility] WBC (Bld) [#/Vol] 11.1 10*3/uL [facility] Basophils (Bld) [#/Vol] 0.09 x10*3/uL Normal 0.00-0.10 [facility] Comment on above: Performed By: #### 1 9123-9 #### KELECHI Garcia ([id number]) [facility] ([facility]) [id number] [place] [address] 06090 Basophils/100 WBC (Bld) 0.8 % Normal 0.0-2.0 [facility] Comment on above: Performed By: #### 1 9123-9 #### KELECHI Garcia ([id number]) [facility] ([facility]) [address] [place] [address] 18354 Eosinophils (Bld) [#/Vol] 0.38 x10*3/uL Normal 0.00-0.40 [facility] Comment on above: Performed By: #### 1 9123-9 #### KELECHI Garcia ([id number]) [facility] ([facility]) [address] [place] [address] 39876 Eosinophils/100 WBC (Bld) 3.4 % Normal 0.0-6.0 [facility] Comment on above: Performed By: #### 1 9123-9 #### KELECHI Garcia ([id number]) [facility] ([facility]) [address] [place] [address] 65573 Erythrocyte distribution width (RBC) [Ratio] 16.0 % High 11.5-14.5 [facility] Comment on above: Performed By: #### 1 9123-9 #### KELECHI Garcia ([id number]) [facility] ([facility]) [address] [place] [address] 05621 Hematocrit (Bld) [Volume fraction] 23.5 % Low 36.0-46.0 [facility] Comment on above: Performed By: #### 1 9123-9 #### KELECHI Garcia ([id number]) [facility] ([facility]) [address] [place] [address] Hemoglobin (Bld) [Mass/Vol] 7.9 g/dL Low 12.0-16.0 [facility] Comment on above: Performed By: #### 1 9123-9 #### KELECHI VELÁZQUEZ L ([id number]) [facility] ([facility]) [id number] [place] [address] 83997 Immature granulocytes (Bld) [#/Vol] 0.04 x10*3/uL Normal 0.00-0.50 [facility] Comment on above: Performed By: #### 1 9123-9 #### KELECHI VELÁZQUEZ L ([id number]) [facility] ([facility]) [address] [place] [address] 03044 Immature granulocytes/100 WBC (Bld) 0.4 % Normal 0.0-0.9 [facility] Comment on above: Result Comment: Jannie ture Granulocyte Count (IG) includes promyelocytes, myelocytes and metamyelocytes but does not include bands. Percent differential counts (%) should be interpreted in the context of the absolute cell counts (cells/UL). Performed By: #### 1 9123-9 #### KELECHI Garcia ([id number]) [facility] ([facility]) [address] [place] [address] 98552 Lymphocytes (Bld) [#/Vol] 1.57 x10*3/uL Normal 0.80-3.00 [facility] Comment on above: Performed By: #### 1 9123-9 #### KELECHI VELÁZQUEZ L ([id number]) [facility] ([facility]) [address] [place] [address] Lymphocytes/100 WBC (Bld) 14.1 % Normal 13.0-44.0 [facility] Comment on above: Performed By: #### 1 9123-9 #### KELECHI WEBSTERER L ([id number]) [facility] ([facility]) [id number] [place] [address] 74684 MCH (RBC) [Entitic mass] 31.9 pg Normal 26.0-34.0 [facility] Comment on above: Performed By: #### 1 9123-9 #### KELECHI Garcia ([id number]) [facility] ([facility]) [address] [place] [address] 96968 MCHC (RBC) [Mass/Vol] 33.6 g/dL Normal 32.0-36.0 [facility] Comment on above: Performed By: #### 1 9123-9 #### KELECHI Garcia ([id number]) [facility] ([facility]) [address] [place] [address] 32495 MCV (RBC) [Entitic vol] 95 fL Normal 80-100 [facility] Comment on above: Performed By: #### 1 9123-9 #### KELECHI Garcia ([id number]) [facility] ([facility]) [address] [place] [address] 57282 Monocytes (Bld) [#/Vol] 1.17 x10*3/uL High 0.05-0.80 [facility] Comment on above: Performed By: #### 1 9123-9 #### KELECHI Garcia ([id number]) [facility] ([facility]) [address] [place] [address] 01449 Monocytes/100 WBC (Bld) 10.5 % Normal 2.0-10.0 [facility] Comment on above: Performed By: #### 1 9123-9 #### KELECHI Garcia ([id number]) [facility] ([facility]) [address] [place] [address] 50089 Neutrophils (Bld) [#/Vol] 7.86 x10*3/uL High 1.60-5.50 [facility] Comment on above: Result Comment: Perc ent differential counts (%) should be interpreted in the context of the absolute cell counts (cells/uL). Performed By: #### 1 9123-9 #### KELECHI Garcia ([id number]) [facility] ([facility]) [address] [place] [address] 28898 Neutrophils/100 WBC (Bld) 70.8 % Normal 40.0-80.0 [facility] Comment on above: Performed By: #### 1 9123-9 #### KELECHI Garcia ([id number]) [facility] ([facility]) [address] [place] [address] [phone] Nucleated RBC/100 WBC (Bld) [Ratio] 0.0 /100 WBCs Normal 0.0-0.0 [facility] Comment on above: Performed By: #### 1 9123-9 #### KELECHI Garcia ([id number]) [facility] ([facility]) [address] [place] [address] [id number] Platelets (Bld) [#/Vol] 369 x10*3/uL Normal 150-450 [facility] Comment on above: Performed By: #### 1 9123-9 #### KELECHI Garcia ([id number]) [facility] ([facility]) [address] [place] [address] [phone] RBC (Bld) [#/Vol] 2.48 x10*6/uL Low 4.00-5.20 [facility] Comment on above: Performed By: #### 1 9123-9 #### KELECHI Garcia ([id number]) [facility] ([facility]) [address] [place] [address] [phone] WBC (Bld) [#/Vol] 11.1 x10*3/uL Normal 4.4-11.3 [facility] Comment on above: Performed By: #### 1 9123-9 #### KELECHI Garcia ([id number]) [facility] [facility] [address] [place] [address]6058 Basophils (Bld) [#/Vol] 0.15 10*3/uL High [facility] Basophils/100 WBC (Bld) 1.2 % 0.0 - 2.0 % [facility] Eosinophils (Bld) [#/Vol] 0.28 10*3/uL [facility] Eosinophils/100 WBC (Bld) 2.3 % 0.0 - 6.0 % [facility] Erythrocyte distribution width (RBC) [Ratio] 15.9 % High 11.5 - 14.5 % [facility] Hematocrit (Bld) [Volume fraction] 26.2 % Low 36.0 - 46.0 % [facility] Hemoglobin (Bld) [Mass/Vol] 8.4 g/dL Low 12.0 - 16.0 g/dL [facility] Immature granulocytes (Bld) [#/Vol] 0.04 10*3/uL [facility] Immature granulocytes/100 WBC (Bld) 0.3 % 0.0 - 0.9 % [facility] Comment on above: Immature Granulocyte Count (IG) includes promyelocytes, myelocytes and metamyelocytes but does not include bands. Percent differential counts (%) should be interpreted in the context of the absolute cell counts (cells/UL). Interpretation and review of laboratory results Abnormal [facility] Lymphocytes (Bld) [#/Vol] 1.44 10*3/uL [facility] Lymphocytes/100 WBC (Bld) 11.6 % 13.0 - 44.0 % [facility] MCH (RBC) [Entitic mass] 30.5 pg 26.0 - 34.0 pg [facility] MCHC (RBC) [Mass/Vol] 32.1 g/dL 32.0 - 36.0 g/dL [facility] MCV (RBC) [Entitic vol] 95 fL 80 - 100 fL [facility] Monocytes (Bld) [#/Vol] 0.97 10*3/uL High [facility] Monocytes/100 WBC (Bld) 7.8 % 2.0 - 10.0 % [facility] Neutrophils (Bld) [#/Vol] 9.54 10*3/uL High [facility] Comment on above: Percent differential counts (%) should be interpreted in the context of the absolute cell counts (cells/uL). Neutrophils/100 WBC (Bld) 76.8 % 40.0 - 80.0 % [facility] Nucleated RBC/100 WBC (Bld) [Ratio] 0 % [facility] Platelets (Bld) [#/Vol] 393 10*3/uL [facility] RBC (Bld) [#/Vol] 2.75 10*6/uL Low [facility] WBC (Bld) [#/Vol] 12.4 10*3/uL High [facility] Basophils (Bld) [#/Vol] 0.15 x10*3/uL High 0.00-0.10 [facility] Comment on above: Performed By: #### 1 9123-9 #### KELECHI Garcia ([id number]) [facility] ([facility]) [id number] [place] [address] Basophils/100 WBC (Bld) 1.2 % Normal 0.0-2.0 [facility] Comment on above: Performed By: #### 1 9123-9 #### KELECHI Garcia ([id number]) [facility] ([facility]) [address] [place] [address] 49181 Eosinophils (Bld) [#/Vol] 0.28 x10*3/uL Normal 0.00-0.40 [facility] Comment on above: Performed By: #### 1 9123-9 #### KELECHI Garcia ([id number]) [facility] ([facility]) [address] [place] [address] 46115 Eosinophils/100 WBC (Bld) 2.3 % Normal 0.0-6.0 [facility] Comment on above: Performed By: #### 1 9123-9 #### KELECHI Garcia ([id number]) [facility] ([facility]) [address] [place] [address] 57908 Erythrocyte distribution width (RBC) [Ratio] 15.9 % High 11.5-14.5 [facility] Comment on above: Performed By: #### 1 9123-9 #### KELECHI Garcia ([id number]) [facility] ([facility]) [address] [place] [address] 63420 Hematocrit (Bld) [Volume fraction] 26.2 % Low 36.0-46.0 [facility] Comment on above: Performed By: #### 1 9123-9 #### KELECHI Garcia ([id number]) [facility] ([facility]) [address] [place] [address] Hemoglobin (Bld) [Mass/Vol] 8.4 g/dL Low 12.0-16.0 [facility] Comment on above: Performed By: #### 1 9123-9 #### KELECHI Garcia ([id number]) [facility] ([facility]) [address] [place] [address] 56618 Immature granulocytes (Bld) [#/Vol] 0.04 x10*3/uL Normal 0.00-0.50 [facility] Comment on above: Performed By: #### 1 9123-9 #### KELECHI Garcia ([id number]) [facility] ([facility]) [address] [place] [address] 63755 Immature granulocytes/100 WBC (Bld) 0.3 % Normal 0.0-0.9 [facility] Comment on above: Result Comment: Jannie ture Granulocyte Count (IG) includes promyelocytes, myelocytes and metamyelocytes but does not include bands. Percent differential counts (%) should be interpreted in the context of the absolute cell counts (cells/UL). Performed By: #### 1 9123-9 #### KELECHI Garcia ([id number]) [facility] ([facility]) [address] [place] [address]16 Lymphocytes (Bld) [#/Vol] 1.44 x10*3/uL Normal 0.80-3.00 [facility] Comment on above: Performed By: #### 1 9123-9 #### KELECHI VELÁZQUEZ L ([id number]) [facility] ([facility]) [address] [place] [address] 97981 Lymphocytes/100 WBC (Bld) 11.6 % Normal 13.0-44.0 [facility] Comment on above: Performed By: #### 1 9123-9 #### KELECHI Garcia ([id number]) [facility] ([facility]) [id number] [place] [address] 69382 MCH (RBC) [Entitic mass] 30.5 pg Normal 26.0-34.0 [facility] Comment on above: Performed By: #### 1 9123-9 #### KELECHI Garcia ([id number]) [facility] ([facility]) [address] [place] [address] MCHC (RBC) [Mass/Vol] 32.1 g/dL Normal 32.0-36.0 [facility] Comment on above: Performed By: #### 1 9123-9 #### KELECHI Garcia ([id number]) [facility] ([facility]) [address] [place] [address] MCV (RBC) [Entitic vol] 95 fL Normal 80-100 [facility] Comment on above: Performed By: #### 1 9123-9 #### KELECHI Garcia ([id number]) [facility] ([facility]) [address] [place] [address] Monocytes (Bld) [#/Vol] 0.97 x10*3/uL High 0.05-0.80 [facility] Comment on above: Performed By: #### 1 9123-9 #### KELECHI Garcia ([id number]) [facility] ([facility]) [address] [place] [address] Monocytes/100 WBC (Bld) 7.8 % Normal 2.0-10.0 [facility] Comment on above: Performed By: #### 1 9123-9 #### KELECHI Garcia ([id number]) [facility] ([facility]) [address] [place] [address] Neutrophils (Bld) [#/Vol] 9.54 x10*3/uL High 1.60-5.50 [facility] Comment on above: Result Comment: Perc ent differential counts (%) should be interpreted in the context of the absolute cell counts (cells/uL). Performed By: #### 1 9123-9 #### KELECHI Garcia ([id number]) [facility] ([facility]) [address] [place] [address] 72798 Neutrophils/100 WBC (Bld) 76.8 % Normal 40.0-80.0 [facility] Comment on above: Performed By: #### 1 9123-9 #### KELECHI Garcia ([id number]) [facility] ([facility]) [address] [place] [address] 41495 Nucleated RBC/100 WBC (Bld) [Ratio] 0.0 /100 WBCs Normal 0.0-0.0 [facility] Comment on above: Performed By: #### 1 9123-9 #### KELECHI Garcia ([id number]) [facility] ([facility]) [address] [place] [address] 42916 Platelets (Bld) [#/Vol] 393 x10*3/uL Normal 150-450 [facility] Comment on above: Performed By: #### 1 9123-9 #### KELECHI Garcia ([id number]) [facility] ([facility]) [address] [place] [address] 41357 RBC (Bld) [#/Vol] 2.75 x10*6/uL Low 4.00-5.20 [facility] Comment on above: Performed By: #### 1 9123-9 #### KELECHI Garcia ([id number]) [facility] ([facility]) [address] [place] [address] 20261 WBC (Bld) [#/Vol] 12.4 x10*3/uL High 4.4-11.3 [facility] Comment on above: Performed By: #### 1 9123-9 #### KELECHI Garcia ([id number]) [facility] ([facility]) [address] [place] [address] 76887 Basophils (Bld) [#/Vol] 0.15 10*3/uL High [facility] Basophils/100 WBC (Bld) 1.3 % 0.0 - 2.0 % [facility] Eosinophils (Bld) [#/Vol] 0.32 10*3/uL [facility] Eosinophils/100 WBC (Bld) 2.7 % 0.0 - 6.0 % [facility] Erythrocyte distribution width (RBC) [Ratio] 15.5 % High 11.5 - 14.5 % [facility] Hematocrit (Bld) [Volume fraction] 22.9 % Low 36.0 - 46.0 % [facility] Hemoglobin (Bld) [Mass/Vol] 7.5 g/dL Low 12.0 - 16.0 g/dL [facility] Immature granulocytes (Bld) [#/Vol] 0.07 10*3/uL [facility] Immature granulocytes/100 WBC (Bld) 0.6 % 0.0 - 0.9 % [facility] Comment on above: Immature Granulocyte Count (IG) includes promyelocytes, myelocytes and metamyelocytes but does not include bands. Percent differential counts (%) should be interpreted in the context of the absolute cell counts (cells/UL). Interpretation and review of laboratory results Abnormal [facility] Lymphocytes (Bld) [#/Vol] 1.67 10*3/uL [facility] Lymphocytes/100 WBC (Bld) 14 % 13.0 - 44.0 % [facility] MCH (RBC) [Entitic mass] 30.9 pg 26.0 - 34.0 pg [facility] MCHC (RBC) [Mass/Vol] 32.8 g/dL 32.0 - 36.0 g/dL [facility] MCV (RBC) [Entitic vol] 94 fL 80 - 100 fL [facility] Monocytes (Bld) [#/Vol] 1.39 10*3/uL High [facility] Monocytes/100 WBC (Bld) 11.7 % 2.0 - 10.0 % [facility] Neutrophils (Bld) [#/Vol] 8.33 10*3/uL High [facility] Comment on above: Percent differential counts (%) should be interpreted in the context of the absolute cell counts (cells/uL). Neutrophils/100 WBC (Bld) 69.7 % 40.0 - 80.0 % [facility] Nucleated RBC/100 WBC (Bld) [Ratio] 0 % [facility] Platelets (Bld) [#/Vol] 360 10*3/uL [facility] RBC (Bld) [#/Vol] 2.43 10*6/uL Low [facility] WBC (Bld) [#/Vol] 11.9 10*3/uL High [facility] Basophils (Bld) [#/Vol] 0.15 x10*3/uL High 0.00-0.10 [facility] Comment on above: Performed By: #### 5 7021-8 #### KELECHI Garcia ([id number]) [facility] ([facility]) [address] [place] [address] 55381 Basophils/100 WBC (Bld) 1.3 % Normal 0.0-2.0 [facility] Comment on above: Performed By: #### 5 7021-8 #### KELECHI Garcia ([id number]) [facility] ([facility]) [address] [place] [address] 11086 Eosinophils (Bld) [#/Vol] 0.32 x10*3/uL Normal 0.00-0.40 [facility] Comment on above: Performed By: #### 5 7021-8 #### KELECHI Garcia ([id number]) [facility] ([facility]) [address] [place] [address] 77072 Eosinophils/100 WBC (Bld) 2.7 % Normal 0.0-6.0 [facility] Comment on above: Performed By: #### 5 7021-8 #### KELECHI Garcia ([id number]) [facility] ([facility]) [address] [place] [address] 25132 Erythrocyte distribution width (RBC) [Ratio] 15.5 % High 11.5-14.5 [facility] Comment on above: Performed By: #### 5 7021-8 #### KELECHI Garcia ([id number]) [facility] ([facility]) [address] [place] [address] 48246 Hematocrit (Bld) [Volume fraction] 22.9 % Low 36.0-46.0 [facility] Comment on above: Performed By: #### 5 7021-8 #### KELECHI Garcia ([id number]) [facility] ([facility]) [address] [place] [address] 99466 Hemoglobin (Bld) [Mass/Vol] 7.5 g/dL Low 12.0-16.0 [facility] Comment on above: Performed By: #### 5 7021-8 #### KELECHI VELEZMOTZER L ([id number]) [facility] ([facility]) [address] [place] [address] 33830 Immature granulocytes (Bld) [#/Vol] 0.07 x10*3/uL Normal 0.00-0.50 [facility] Comment on above: Performed By: #### 5 7021-8 #### KELECHI VELÁZQUEZ L ([id number]) [facility] ([facility]) [address] [place] [address] 01435 Immature granulocytes/100 WBC (Bld) 0.6 % Normal 0.0-0.9 [facility] Comment on above: Result Comment: Jannie ture Granulocyte Count (IG) includes promyelocytes, myelocytes and metamyelocytes but does not include bands. Percent differential counts (%) should be interpreted in the context of the absolute cell counts (cells/UL). Performed By: #### 5 7021-8 #### KELECHI Garcia ([id number]) [facility] ([facility]) [address] [place] [address] 71961 Lymphocytes (Bld) [#/Vol] 1.67 x10*3/uL Normal 0.80-3.00 [facility] Comment on above: Performed By: #### 5 7021-8 #### KELECHI WEBSTERER L ([id number]) [facility] ([facility]) [address] [place] [address] 89094 Lymphocytes/100 WBC (Bld) 14.0 % Normal 13.0-44.0 [facility] Comment on above: Performed By: #### 5 7021-8 #### KELECHI VELÁZQUEZ L ([id number]) [facility] ([facility]) [address] [place] [address] 98683 MCH (RBC) [Entitic mass] 30.9 pg Normal 26.0-34.0 [facility] Comment on above: Performed By: #### 5 7021-8 #### KELECHI Garcia ([id number]) [facility] ([facility]) [address] [place] [address] MCHC (RBC) [Mass/Vol] 32.8 g/dL Normal 32.0-36.0 [facility] Comment on above: Performed By: #### 5 7021-8 #### KELECHI Garcia ([id number]) [facility] ([facility]) [address] [place] [address] MCV (RBC) [Entitic vol] 94 fL Normal 80-100 [facility] Comment on above: Performed By: #### 5 7021-8 #### KELECHI Garcia ([id number]) [facility] ([facility]) [address] [place] [address] 52852 Monocytes (Bld) [#/Vol] 1.39 x10*3/uL High 0.05-0.80 [facility] Comment on above: Performed By: #### 5 7021-8 #### KELECHI Garcia ([id number]) [facility] ([facility]) [address] [place] [address] Monocytes/100 WBC (Bld) 11.7 % Normal 2.0-10.0 [facility] Comment on above: Performed By: #### 5 7021-8 #### KELECHI Garcia ([id number]) [facility] ([facility]) [address] [place] [address] Neutrophils (Bld) [#/Vol] 8.33 x10*3/uL High 1.60-5.50 [facility] Comment on above: Result Comment: Perc ent differential counts (%) should be interpreted in the context of the absolute cell counts (cells/uL). Performed By: #### 5 7021-8 #### KELECHI Garcia ([id number]) [facility] ([facility]) [address] [place] [address] 69480 Neutrophils/100 WBC (Bld) 69.7 % Normal 40.0-80.0 [facility] Comment on above: Performed By: #### 5 7021-8 #### KELECHI Garcia ([id number]) [facility] ([facility]) [address] [place] [address] 90604 Nucleated RBC/100 WBC (Bld) [Ratio] 0.0 /100 WBCs Normal 0.0-0.0 [facility] Comment on above: Performed By: #### 5 7021-8 #### KELECHI Garcia ([id number]) [facility] ([facility]) [address] [place] [address] 54577 Platelets (Bld) [#/Vol] 360 x10*3/uL Normal 150-450 [facility] Comment on above: Performed By: #### 5 7021-8 #### KELECHI Garcia ([id number]) [facility] ([facility]) [address] [place] [address] 84002 RBC (Bld) [#/Vol] 2.43 x10*6/uL Low 4.00-5.20 [facility] Comment on above: Performed By: #### 5 7021-8 #### KELECHI Garcia ([id number]) [facility] ([facility]) [address] [place] [address] 17919 WBC (Bld) [#/Vol] 11.9 x10*3/uL High 4.4-11.3 [facility] Comment on above: Performed By: #### 5 7021-8 #### KELECHI VELÁZQUEZ L ([id number]) [facility] ([facility]) [address] [place] [address] 51263 Basophils (Bld) [#/Vol] 0.12 10*3/uL High [facility] Basophils/100 WBC (Bld) 1 % 0.0 - 2.0 % [facility] Eosinophils (Bld) [#/Vol] 0.23 10*3/uL [facility] Eosinophils/100 WBC (Bld) 1.9 % 0.0 - 6.0 % [facility] Erythrocyte distribution width (RBC) [Ratio] 15.7 % High 11.5 - 14.5 % [facility] Hematocrit (Bld) [Volume fraction] 21.1 % Low 36.0 - 46.0 % [facility] Hemoglobin (Bld) [Mass/Vol] 6.8 g/dL Low 12.0 - 16.0 g/dL [facility] Immature granulocytes (Bld) [#/Vol] 0.04 10*3/uL [facility] Immature granulocytes/100 WBC (Bld) 0.3 % 0.0 - 0.9 % [facility] Comment on above: Immature Granulocyte Count (IG) includes promyelocytes, myelocytes and metamyelocytes but does not include bands. Percent differential counts (%) should be interpreted in the context of the absolute cell counts (cells/UL). Interpretation and review of laboratory results Abnormal [facility] Lymphocytes (Bld) [#/Vol] 1 10*3/uL [facility] Lymphocytes/100 WBC (Bld) 8.1 % 13.0 - 44.0 % [facility] MCH (RBC) [Entitic mass] 30.4 pg 26.0 - 34.0 pg [facility] MCHC (RBC) [Mass/Vol] 32.2 g/dL 32.0 - 36.0 g/dL [facility] MCV (RBC) [Entitic vol] 94 fL 80 - 100 fL [facility] Monocytes (Bld) [#/Vol] 1.23 10*3/uL High [facility] Monocytes/100 WBC (Bld) 10 % 2.0 - 10.0 % [facility] Neutrophils (Bld) [#/Vol] 9.7 10*3/uL High [facility] Comment on above: Percent differential counts (%) should be interpreted in the context of the absolute cell counts (cells/uL). Neutrophils/100 WBC (Bld) 78.7 % 40.0 - 80.0 % [facility] Nucleated RBC/100 WBC (Bld) [Ratio] 0 % [facility] Platelets (Bld) [#/Vol] 366 10*3/uL [facility] RBC (Bld) [#/Vol] 2.24 10*6/uL Low [facility] WBC (Bld) [#/Vol] 12.3 10*3/uL High [facility] No Panel Informationon 09-01 Interpretation and review of laboratory results Abnormal [facility] Vancomycinon 09-01-2024 Vancomycin [Mass/Vol] 25.3 ug/mL High 5.0 - 20.0 ug/mL [facility] Vancomycin [Mass/Vol] 25.3 ug/mL High 5.0-20.0 [facility] Comment on above: Order Comment: Vanco mycin [...] By: #### 1 9123-9 #### KELECHI Garcia ([id number]) [facility] ([facility]) [address] [place] [address] Vancomycin [Mass/Vol]on 08-05 Vancomycin levels can be [...] 30.0-40.0 ug/mL Trough (all ages): 10.0-20.0 ug/mL [facility] Basic metabolic 2000 panelon 08-31-2024 Anion gap [Moles/Vol] 19 mmol/L 10 - 2 0 mmol/L [facility] Calcium [Mass/Vol] 7.3 mg/dL Low 8.6 - 10. 6 mg/dL [facility] Chloride [Moles/Vol] 89 mmol/L Low 98 - 10 7 mmol/L [facility] CO2 [Moles/Vol] 28 mmol/L 21 - 32 mmol/L [facility] Creatinine [Mass/Vol] 7.69 mg/dL High 0.50 - 1.05 mg/dL [facility] GFR/1.73 sq M.predicted among non-blacks MDRD (S/P/Bld) [Vol rate/Area] 5 mL/min/{1.73_m2} Low - PINF [facility] Comment on above: Calculations of katy mated GFR are performed using the 2020 CKD-EPI Study Refit equation without the race variable for the IDMS-Traceable creatinine methods. https://jasn.asnjournals.org/content//ASN.2020 782087 Glucose [Mass/Vol] 74 mg/dL 74 - 99 mg/dL [facility] Potassium [Moles/Vol] 4.2 mmol/L 3.5 - 5.3 mmol/L [facility] Sodium [Moles/Vol] 132 mmol/L Low 136 - 145 mmol/L [facility] Urea nitrogen [Mass/Vol] 45 mg/dL High 6 - 23 mg/dL [facility] Anion gap [Moles/Vol] 19 mmol/L Normal 10-20 [facility] Comment on above: Performed By: #### 2 4321-2 #### KELECHI Garcia ([id number]) [facility] ([facility]) [address] [place] [address] Calcium [Mass/Vol] 7.3 mg/dL Low 8.6-10.6 [facility] Comment on above: Performed By: #### 2 4321-2 #### KELECHI VELÁZQUEZ L ([id number]) [facility] ([facility]) [address] [place] [address] Chloride [Moles/Vol] 89 mmol/L Low 98-107 [facility] Comment on above: Performed By: #### 2 4321-2 #### KELECHI Garcia ([id number]) [facility] ([facility]) [address] [place] [address] CO2 [Moles/Vol] 28 mmol/L Normal 21-32 [facility] Comment on above: Performed By: #### 2 4321-2 #### KELECHI Garcia ([id number]) [facility] ([facility]) [id number] [place] [address]78 Creatinine [Mass/Vol] 7.69 mg/dL High 0.50-1.05 [facility] Comment on above: Performed By: #### 2 4321-2 #### KELECHI Garcia ([id number]) [facility] ([facility]) [address] [place] [address] 28549 Glomerular filtration rate/1.73 sq M.predicted 5 mL/min/1.73m*2 Low >60 [facility] Comment on above: Result Comment: Calc ulations of estimated GFR are performed using the 2020 CKD-EPI Study Refit equation without the race variable for the IDMS-Traceable creatinine methods. https://jasn.asnjournals.org/content/early//ASN.2020 080273 Performed By: #### 2 4321-2 #### KELECHI Garcia ([id number]) [facility] ([facility]) [address] [place] [address] Glucose [Mass/Vol] 74 mg/dL Normal 74-99 [facility] Comment on above: Performed By: #### 2 4321-2 #### KELECHI Garcia ([id number]) [facility] ([facility]) [address] [place] [address] Potassium [Moles/Vol] 4.2 mmol/L Normal 3.5-5.3 [facility] Comment on above: Performed By: #### 2 4321-2 #### KELECHI Garcia ([id number]) [facility] ([facility]) [address] [place], [place] [phone] Sodium [Moles/Vol] 132 mmol/L Low 136-145 [facility] Comment on above: Performed By: #### 2 4321-2 #### KELECHI Garcia ([id number]) [facility] ([facility]) [address] [place], [place] [address] Urea nitrogen [Mass/Vol] 45 mg/dL High 6-23 [facility] Comment on above: Performed By: #### 2 4321-2 #### KELECHI Garcia ([id number]) [facility] ([facility]) [address] [place], [place] [phone] Blood type and Indirect anti body screen panel (Bld)on 08-31-2024 ABO group Nom (Bld) O [facility] Blood group antibody screen Ql Negative [facility] D Ag Ql (Bld) Positive [facility] ABO group Nom (Bld) O Normal [facility] Comment on above: Performed By: #### 5 7021-8 #### KELECHI Garcia ([id number]) [facility] ([facility]) [address] [place] [address] Blood group antibody screen Ql Negative [facility] Comment on above: Performed By: #### 5 7021-8 #### KELECHI Garcia ([id number]) [facility] ([facility]) [address] [place], [place] [id number] D Ag Ql (Bld) Positive [facility] Comment on above: Performed By: #### 5 7021-8 #### KELECHI Garcia ([id number]) [facility] ([facility]) [address] [place], [place] [id number] ABO group Nom (Bld) O [facility] Blood group antibody screen Ql Negative [facility] D Ag Ql (Bld) Positive [facility] Comment on above: 2nd ABO test require d. Order and Collect VERAB [facility] ABO group Nom (Bld) O Normal [facility] Comment on above: Performed By: #### 3 4532-2 #### KELECHI Garcia ([id number]) [facility] ([facility]) [address] [place] [address] Blood group antibody screen Ql Negative [facility] Comment on above: Performed By: #### 3 4532-2 #### KELECHI Garcia ([id number]) [facility] ([facility]) [address] [place] [address] D Ag Ql (Bld) Positive [facility] Comment on above: Result Comment: 2nd ABO test required. Order and Collect VERAB Performed By: #### 3 4532-2 #### KELECHI Garcia ([id number]) [facility] ([facility]) [address] [place] [address] CBC W Auto Differential pane l (Bld)on 08-31-2024 Basophils (Bld) [#/Vol] 0.13 10*3/uL High [facility] Basophils/100 WBC (Bld) 1 % 0.0 - 2.0 % [facility] Eosinophils (Bld) [#/Vol] 0.34 10*3/uL [facility] Eosinophils/100 WBC (Bld) 2.6 % 0.0 - 6.0 % [facility] Erythrocyte distribution width (RBC) [Ratio] 15.7 % High 11.5 - 14.5 % [facility] Hematocrit (Bld) [Volume fraction] 19.6 % Low 36.0 - 46.0 % [facility] Hemoglobin (Bld) [Mass/Vol] 6.4 g/dL Critically low 12.0 - 16.0 g/dL [facility] Immature granulocytes (Bld) [#/Vol] 0.05 10*3/uL [facility] Immature granulocytes/100 WBC (Bld) 0.4 % 0.0 - 0.9 % [facility] Comment on above: Immature Granulocyte Count (IG) includes promyelocytes, myelocytes and metamyelocytes but does not include bands. Percent differential counts (%) should be interpreted in the context of the absolute cell counts (cells/UL). Interpretation and review of laboratory results Abnormal [facility] Lymphocytes (Bld) [#/Vol] 1.29 10*3/uL [facility] Lymphocytes/100 WBC (Bld) 9.8 % 13.0 - 44.0 % [facility] MCH (RBC) [Entitic mass] 30.3 pg 26.0 - 34.0 pg [facility] MCHC (RBC) [Mass/Vol] 32.7 g/dL 32.0 - 36.0 g/dL [facility] MCV (RBC) [Entitic vol] 93 fL 80 - 100 fL [facility] Monocytes (Bld) [#/Vol] 0.95 10*3/uL High [facility] Monocytes/100 WBC (Bld) 7.2 % 2.0 - 10.0 % [facility] Neutrophils (Bld) [#/Vol] 10.47 10*3/uL [facility] Comment on above: Percent differential counts (%) should be interpreted in the context of the absolute cell counts (cells/uL). Neutrophils/100 WBC (Bld) 79 % 40.0 - 80.0 % [facility] Nucleated RBC/100 WBC (Bld) [Ratio] 0 % [facility] Platelets (Bld) [#/Vol] 347 10*3/uL [facility] RBC (Bld) [#/Vol] 2.11 10*6/uL Low [facility] WBC (Bld) [#/Vol] 13.2 10*3/uL High [facility] Basophils (Bld) [#/Vol] 0.13 x10*3/uL High 0.00-0.10 [facility] Comment on above: Performed By: #### 5 7021-8 #### KELECHI Garcia ([id number]) [facility] ([facility]) [address] [place] [address] Basophils/100 WBC (Bld) 1.0 % Normal 0.0-2.0 [facility] Comment on above: Performed By: #### 5 7021-8 #### KELECHI Garcia ([id number]) [facility] ([facility]) [address] [place] [address] Eosinophils (Bld) [#/Vol] 0.34 x10*3/uL Normal 0.00-0.40 [facility] Comment on above: Performed By: #### 5 7021-8 #### KELECHI Garcia ([id number]) [facility] ([facility]) [address] [place] [address] Eosinophils/100 WBC (Bld) 2.6 % Normal 0.0-6.0 [facility] Comment on above: Performed By: #### 5 7021-8 #### KELECHI Garcia ([id number]) [facility] ([facility]) [address] [place] [address] Erythrocyte distribution width (RBC) [Ratio] 15.7 % High 11.5-14.5 [facility] Comment on above: Performed By: #### 5 7021-8 #### KELECHI Garcia ([id number]) [facility] ([facility]) [address] [place] [address] Hematocrit (Bld) [Volume fraction] 19.6 % Low 36.0-46.0 [facility] Comment on above: Performed By: #### 5 7021-8 #### KELECHI Garcia ([id number]) [facility] ([facility]) [address] [place] [address] Hemoglobin (Bld) [Mass/Vol] 6.4 g/dL Critically low 12.0-16.0 [facility] Comment on above: Performed By: #### 5 7021-8 #### KELECHI Garcia ([id number]) [facility] ([facility]) [address] [place] [address]373 Immature granulocytes (Bld) [#/Vol] 0.05 x10*3/uL Normal 0.00-0.50 [facility] Comment on above: Performed By: #### 5 7021-8 #### KELECHI Garcia ([id number]) [facility] ([facility]) [address] [place] [address] Immature granulocytes/100 WBC (Bld) 0.4 % Normal 0.0-0.9 [facility] Comment on above: Result Comment: Jannie ture Granulocyte Count (IG) includes promyelocytes, myelocytes and metamyelocytes but does not include bands. Percent differential counts (%) should be interpreted in the context of the absolute cell counts (cells/UL). Performed By: #### 5 7021-8 #### KELECHI Garcia ([id number]) [facility] ([facility]) [id number] [place] [address] Lymphocytes (Bld) [#/Vol] 1.29 x10*3/uL Normal 0.80-3.00 [facility] Comment on above: Performed By: #### 5 7021-8 #### KELECHI Garcia ([id number]) [facility] ([facility]) [address] [place] [address] Lymphocytes/100 WBC (Bld) 9.8 % Normal 13.0-44.0 [facility] Comment on above: Performed By: #### 5 7021-8 #### KELCEHI Garcia ([id number]) [facility] ([facility]) [address] [place] [address]35 MCH (RBC) [Entitic mass] 30.3 pg Normal 26.0-34.0 [facility] Comment on above: Performed By: #### 5 7021-8 #### KELECHI Garcia ([id number]) [facility] ([facility]) [address] [place] [address] MCHC (RBC) [Mass/Vol] 32.7 g/dL Normal 32.0-36.0 [facility] Comment on above: Performed By: #### 5 7021-8 #### KELECHI Garcia ([id number]) [facility] ([facility]) [id number] [place] [address] 10182 MCV (RBC) [Entitic vol] 93 fL Normal 80-100 [facility] Comment on above: Performed By: #### 5 7021-8 #### KELECHI Garcia ([id number]) [facility] ([facility]) [address] [place] [address] Monocytes (Bld) [#/Vol] 0.95 x10*3/uL High 0.05-0.80 [facility] Comment on above: Performed By: #### 5 7021-8 #### KELECHI Garcia ([id number]) [facility] ([facility]) [address] [place] [address] Monocytes/100 WBC (Bld) 7.2 % Normal 2.0-10.0 [facility] Comment on above: Performed By: #### 5 7021-8 #### KELECHI Garcia ([id number]) [facility] ([facility]) [address] [place] [address] Neutrophils (Bld) [#/Vol] 10.47 x10*3/uL High 1.60-5.50 [facility] Comment on above: Result Comment: Perc ent differential counts (%) should be interpreted in the context of the absolute cell counts (cells/uL). Performed By: #### 5 7021-8 #### KELECHI Garcia ([id number]) [facility] ([facility]) [address] [place] [address] Neutrophils/100 WBC (Bld) 79.0 % Normal 40.0-80.0 [facility] Comment on above: Performed By: #### 5 7021-8 #### KELECHI Garcia ([id number]) [facility] ([facility]) [address] [place] [address] Nucleated RBC/100 WBC (Bld) [Ratio] 0.0 /100 WBCs Normal 0.0-0.0 [facility] Comment on above: Performed By: #### 5 7021-8 #### KELECHI Garcia ([id number]) [facility] ([facility]) [address] [place] [address] Platelets (Bld) [#/Vol] 347 x10*3/uL Normal 150-450 [facility] Comment on above: Performed By: #### 5 7021-8 #### KELECHI Garcia ([id number]) [facility] ([facility]) [address] [place] [address] RBC (Bld) [#/Vol] 2.11 x10*6/uL Low 4.00-5.20 [facility] Comment on above: Performed By: #### 5 7021-8 #### KELECHI Garcia ([id number]) [facility] ([facility]) [address] [place] [address] WBC (Bld) [#/Vol] 13.2 x10*3/uL High 4.4-11.3 [facility] Comment on above: Performed By: #### 5 7021-8 #### KELECHI Garcia ([id number]) [facility] ([facility]) [address] [place] [address] Basophils (Bld) [#/Vol] 0.19 10*3/uL [facility] Basophils/100 WBC (Bld) 1.2 % 0.0 - 2.0 % [facility] Eosinophils (Bld) [#/Vol] 0.37 10*3/uL [facility] Eosinophils/100 WBC (Bld) 2.4 % 0.0 - 6.0 % [facility] Erythrocyte distribution width (RBC) [Ratio] 16.1 % High 11.5 - 14.5 % [facility] Hematocrit (Bld) [Volume fraction] 22.7 % Low 36.0 - 46.0 % [facility] Hemoglobin (Bld) [Mass/Vol] 7.2 g/dL Low 12.0 - 16.0 g/dL [facility] Immature granulocytes (Bld) [#/Vol] 0.12 10*3/uL [facility] Immature granulocytes/100 WBC (Bld) 0.8 % 0.0 - 0.9 % [facility] Comment on above: Immature Granulocyte Count (IG) includes promyelocytes, myelocytes and metamyelocytes but does not include bands. Percent differential counts (%) should be interpreted in the context of the absolute cell counts (cells/UL). Interpretation and review of laboratory results Abnormal [facility] Lymphocytes (Bld) [#/Vol] 1.36 10*3/uL [facility] Lymphocytes/100 WBC (Bld) 8.8 % 13.0 - 44.0 % [facility] MCH (RBC) [Entitic mass] 30 pg 26.0 - 34.0 pg [facility] MCHC (RBC) [Mass/Vol] 31.7 g/dL Low 32.0 - 36.0 g/dL [facility] MCV (RBC) [Entitic vol] 95 fL 80 - 100 fL [facility] Monocytes (Bld) [#/Vol] 1.1 10*3/uL [facility] Monocytes/100 WBC (Bld) 7.1 % 2.0 - 10.0 % [facility] Neutrophils (Bld) [#/Vol] 12.33 10*3/uL [facility] Comment on above: Percent differential counts (%) should be interpreted in the context of the absolute cell counts (cells/uL). Neutrophils/100 WBC (Bld) 79.7 % 40.0 - 80.0 % [facility] Nucleated RBC/100 WBC (Bld) [Ratio] 0 % [facility] Platelets (Bld) [#/Vol] 353 10*3/uL [facility] RBC (Bld) [#/Vol] 2.4 10*6/uL [facility] WBC (Bld) [#/Vol] 15.5 10*3/uL [facility] Basophils (Bld) [#/Vol] 0.19 x10*3/uL High 0.00-0.10 [facility] Comment on above: Performed By: #### 5 7021-8 #### KELECHI Garcia ([id number]) [facility] ([facility]) [address] [place] [address] Basophils/100 WBC (Bld) 1.2 % Normal 0.0-2.0 [facility] Comment on above: Performed By: #### 5 7021-8 #### KELECHI Garcia ([id number]) [facility] ([facility]) [address] [place] [address] Eosinophils (Bld) [#/Vol] 0.37 x10*3/uL Normal 0.00-0.40 [facility] Comment on above: Performed By: #### 5 7021-8 #### KELECHI Garcia ([id number]) [facility] ([facility]) [address] [place] [address] 94682 Eosinophils/100 WBC (Bld) 2.4 % Normal 0.0-6.0 [facility] Comment on above: Performed By: #### 5 7021-8 #### KELECHI Garcia ([id number]) [facility] ([facility]) [address] [place] [address] 06132 Erythrocyte distribution width (RBC) [Ratio] 16.1 % High 11.5-14.5 [facility] Comment on above: Performed By: #### 5 7021-8 #### KELECHI Garcia ([id number]) [facility] ([facility]) [address] [place] [address] 60373 Hematocrit (Bld) [Volume fraction] 22.7 % Low 36.0-46.0 [facility] Comment on above: Performed By: #### 5 7021-8 #### KELECHI Garcia ([id number]) [facility] ([facility]) [address] [place] [address] 96961 Hemoglobin (Bld) [Mass/Vol] 7.2 g/dL Low 12.0-16.0 [facility] Comment on above: Performed By: #### 5 7021-8 #### KELECHI Garcia ([id number]) [facility] ([facility]) [address] [place] [address] 88360 Immature granulocytes (Bld) [#/Vol] 0.12 x10*3/uL Normal 0.00-0.50 [facility] Comment on above: Performed By: #### 5 7021-8 #### KELECHI Garcia ([id number]) [facility] ([facility]) [address] [place] [address] Immature granulocytes/100 WBC (Bld) 0.8 % Normal 0.0-0.9 [facility] Comment on above: Result Comment: Jannie ture Granulocyte Count (IG) includes promyelocytes, myelocytes and metamyelocytes but does not include bands. Percent differential counts (%) should be interpreted in the context of the absolute cell counts (cells/UL). Performed By: #### 5 7021-8 #### KELECHI Garcia ([id number]) [facility] ([facility]) [address] [place] [address] 14952 Lymphocytes (Bld) [#/Vol] 1.36 x10*3/uL Normal 0.80-3.00 [facility] Comment on above: Performed By: #### 5 7021-8 #### KELECHI Garcia ([id number]) [facility] ([facility]) [address] [place] [address] 10129 Lymphocytes/100 WBC (Bld) 8.8 % Normal 13.0-44.0 [facility] Comment on above: Performed By: #### 5 7021-8 #### KELECHI Garcia ([id number]) [facility] ([facility]) [address] [place] [address] 80739 MCH (RBC) [Entitic mass] 30.0 pg Normal 26.0-34.0 [facility] Comment on above: Performed By: #### 5 7021-8 #### KELECHI Garcia ([id number]) [facility] ([facility]) [address] [place] [address] 83123 MCHC (RBC) [Mass/Vol] 31.7 g/dL Low 32.0-36.0 [facility] Comment on above: Performed By: #### 5 7021-8 #### KELECHI Garcia ([id number]) [facility] ([facility]) [address] [place] [address] 11454 MCV (RBC) [Entitic vol] 95 fL Normal 80-100 [facility] Comment on above: Performed By: #### 5 7021-8 #### KELECHI Garcia ([id number]) [facility] ([facility]) [address] [place] [address] Monocytes (Bld) [#/Vol] 1.10 x10*3/uL High 0.05-0.80 [facility] Comment on above: Performed By: #### 5 7021-8 #### KELECHI Garcia ([id number]) [facility] ([facility]) [address] [place] [address] 77265 Monocytes/100 WBC (Bld) 7.1 % Normal 2.0-10.0 [facility] Comment on above: Performed By: #### 5 7021-8 #### KELECHI Garcia ([id number]) [facility] ([facility]) [address] [place] [address] 20539 Neutrophils (Bld) [#/Vol] 12.33 x10*3/uL High 1.60-5.50 [facility] Comment on above: Result Comment: Perc ent differential counts (%) should be interpreted in the context of the absolute cell counts (cells/uL). Performed By: #### 5 7021-8 #### KELECHI Garcia ([id number]) [facility] ([facility]) [address] [place] [address] 98559 Neutrophils/100 WBC (Bld) 79.7 % Normal 40.0-80.0 [facility] Comment on above: Performed By: #### 5 7021-8 #### KELECHI Garcia ([id number]) [facility] ([facility]) [address] [place] [address] 78396 Nucleated RBC/100 WBC (Bld) [Ratio] 0.0 /100 WBCs Normal 0.0-0.0 [facility] Comment on above: Performed By: #### 5 7021-8 #### KELECHI Garcia ([id number]) [facility] ([facility]) [address] [place] [address] Platelets (Bld) [#/Vol] 353 x10*3/uL Normal 150-450 [facility] Comment on above: Performed By: #### 5 7021-8 #### KELECHI Garcia ([id number]) [facility] ([facility]) [address] [place] [address] RBC (Bld) [#/Vol] 2.40 x10*6/uL Low 4.00-5.20 [facility] Comment on above: Performed By: #### 5 7021-8 #### KELECHI Garcia ([id number]) [facility] ([facility]) [address] [place] [address] WBC (Bld) [#/Vol] 15.5 x10*3/uL High 4.4-11.3 [facility] Comment on above: Performed By: #### 5 7021-8 #### KELECHI Garcia ([id number]) [facility] ([facility]) [address] [place] [address] Basophils (Bld) [#/Vol] 0.16 10*3/uL [facility] Basophils/100 WBC (Bld) 1.1 % 0.0 - 2.0 % [facility] Eosinophils (Bld) [#/Vol] 0.46 10*3/uL [facility] Eosinophils/100 WBC (Bld) 3.2 % 0.0 - 6.0 % [facility] Immature granulocytes (Bld) [#/Vol] 0.07 10*3/uL [facility] Immature granulocytes/100 WBC (Bld) 0.5 % 0.0 - 0.9 % [facility] Comment on above: Immature Granulocyte Count (IG) includes promyelocytes, myelocytes and metamyelocytes but does not include bands. Percent differential counts (%) should be interpreted in the context of the absolute cell counts (cells/UL). Lymphocytes (Bld) [#/Vol] 1.77 10*3/uL [facility] Lymphocytes/100 WBC (Bld) 12.3 % 13.0 - 44.0 % [facility] Monocytes (Bld) [#/Vol] 1.25 10*3/uL [facility] Monocytes/100 WBC (Bld) 8.7 % 2.0 - 10.0 % [facility] Neutrophils (Bld) [#/Vol] 10.69 10*3/uL [facility] Comment on above: Percent differential counts (%) should be interpreted in the context of the absolute cell counts (cells/uL). Neutrophils/100 WBC (Bld) 74.2 % 40.0 - 80.0 % [facility] Basophils (Bld) [#/Vol] 0.16 x10*3/uL High 0.00-0.10 [facility] Comment on above: Performed By: #### 5 7021-8 #### KELECHI Garcia ([id number]) [facility] ([facility]) [address] [place] [address] Basophils/100 WBC (Bld) 1.1 % Normal 0.0-2.0 [facility] Comment on above: Performed By: #### 5 7021-8 #### KELECHI VELÁZQUEZ L ([id number]) [facility] ([facility]) [id number] [place] [address] 27855 Eosinophils (Bld) [#/Vol] 0.46 x10*3/uL High 0.00-0.40 [facility] Comment on above: Performed By: #### 5 7021-8 #### KELECHI VELÁZQUEZ L ([id number]) [facility] ([facility]) [address] [place] [address] 18723 Eosinophils/100 WBC (Bld) 3.2 % Normal 0.0-6.0 [facility] Comment on above: Performed By: #### 5 7021-8 #### KELECHI VELEZMOTZZAMZAM L ([id number]) [facility] ([facility]) [address] [place] [address] 19506 Immature granulocytes (Bld) [#/Vol] 0.07 x10*3/uL Normal 0.00-0.50 [facility] Comment on above: Performed By: #### 5 7021-8 #### KELECHI VELEZMOTZER L ([id number]) [facility] ([facility]) [address] [place] [address] Immature granulocytes/100 WBC (Bld) 0.5 % Normal 0.0-0.9 [facility] Comment on above: Result Comment: Jannie ture Granulocyte Count (IG) includes promyelocytes, myelocytes and metamyelocytes but does not include bands. Percent differential counts (%) should be interpreted in the context of the absolute cell counts (cells/UL). Performed By: #### 5 7021-8 #### KELECHI Garcia ([id number]) [facility] ([facility]) [id number] [place] [address]339 Lymphocytes (Bld) [#/Vol] 1.77 x10*3/uL Normal 0.80-3.00 [facility] Comment on above: Performed By: #### 5 7021-8 #### KELECHI Garcia ([id number]) [facility] ([facility]) [address] [place] [address] Lymphocytes/100 WBC (Bld) 12.3 % Normal 13.0-44.0 [facility] Comment on above: Performed By: #### 5 7021-8 #### KELECHI Garcia ([id number]) [facility] ([facility]) [address] [place] [address] 38741 Monocytes (Bld) [#/Vol] 1.25 x10*3/uL High 0.05-0.80 [facility] Comment on above: Performed By: #### 5 7021-8 #### KELECHI Garcia ([id number]) [facility] ([facility]) [address] [place] [address] Monocytes/100 WBC (Bld) 8.7 % Normal 2.0-10.0 [facility] Comment on above: Performed By: #### 5 7021-8 #### KELECHI Garcia ([id number]) [facility] ([facility]) [address] [place] [address] Neutrophils (Bld) [#/Vol] 10.69 x10*3/uL High 1.60-5.50 [facility] Comment on above: Result Comment: Perc ent differential counts (%) should be interpreted in the context of the absolute cell counts (cells/uL). Performed By: #### 5 7021-8 #### KELECHI Garcia ([id number]) [facility] ([facility]) [address] [place] [address] Neutrophils/100 WBC (Bld) 74.2 % Normal 40.0-80.0 [facility] Comment on above: Performed By: #### 5 7021-8 #### KELECHI Garcia ([id number]) [facility] ([facility]) [address] [place] [address] Basophils (Bld) [#/Vol] 0.18 10*3/uL High [facility] Basophils/100 WBC (Bld) 1.2 % 0.0 - 2.0 % [facility] Eosinophils (Bld) [#/Vol] 0.39 10*3/uL [facility] Eosinophils/100 WBC (Bld) 2.5 % 0.0 - 6.0 % [facility] Erythrocyte distribution width (RBC) [Ratio] 16.3 % High 11.5 - 14.5 % [facility] Hematocrit (Bld) [Volume fraction] 21.9 % Low 36.0 - 46.0 % [facility] Hemoglobin (Bld) [Mass/Vol] 7 g/dL Low 12.0 - 16.0 g/dL [facility] Immature granulocytes (Bld) [#/Vol] 0.09 10*3/uL [facility] Immature granulocytes/100 WBC (Bld) 0.6 % 0.0 - 0.9 % [facility] Comment on above: Immature Granulocyte Count (IG) includes promyelocytes, myelocytes and metamyelocytes but does not include bands. Percent differential counts (%) should be interpreted in the context of the absolute cell counts (cells/UL). Interpretation and review of laboratory results Abnormal [facility] Lymphocytes (Bld) [#/Vol] 1.77 10*3/uL [facility] Lymphocytes/100 WBC (Bld) 11.4 % 13.0 - 44.0 % [facility] MCH (RBC) [Entitic mass] 30.4 pg 26.0 - 34.0 pg [facility] MCHC (RBC) [Mass/Vol] 32 g/dL 32.0 - 36.0 g/dL [facility] MCV (RBC) [Entitic vol] 95 fL 80 - 100 fL [facility] Monocytes (Bld) [#/Vol] 1.34 10*3/uL High [facility] Monocytes/100 WBC (Bld) 8.6 % 2.0 - 10.0 % [facility] Neutrophils (Bld) [#/Vol] 11.75 10*3/uL High [facility] Comment on above: Percent differential counts (%) should be interpreted in the context of the absolute cell counts (cells/uL). Neutrophils/100 WBC (Bld) 75.7 % 40.0 - 80.0 % [facility] Nucleated RBC/100 WBC (Bld) [Ratio] 0 % [facility] Platelets (Bld) [#/Vol] 341 10*3/uL [facility] RBC (Bld) [#/Vol] 2.3 10*6/uL Low [facility] WBC (Bld) [#/Vol] 15.5 10*3/uL High [facility] Basophils (Bld) [#/Vol] 0.18 x10*3/uL High 0.00-0.10 [facility] Comment on above: Performed By: #### 5 7021-8 #### KELECHI Garcia ([id number]) [facility] ([facility]) [address] [place] [address] Basophils/100 WBC (Bld) 1.2 % Normal 0.0-2.0 U [facility] Comment on above: Performed By: #### 5 7021-8 #### KELECHI Garcia ([id number]) [facility] ([facility]) [address] [place] [address] Eosinophils (Bld) [#/Vol] 0.39 x10*3/uL Normal 0.00-0.40 [facility] Comment on above: Performed By: #### 5 7021-8 #### KELECHI Garcia ([id number]) [facility] ([facility]) [address] [place] [id number] Eosinophils/100 WBC (Bld) 2.5 % Normal 0.0-6.0 [facility] Comment on above: Performed By: #### 5 7021-8 #### KELECHI Garcia ([id number]) [facility] ([facility]) [address] [place] [id number] Erythrocyte distribution width (RBC) [Ratio] 16.3 % High 11.5-14.5 [facility] Comment on above: Performed By: #### 5 7021-8 #### KELECHI Garcia ([id number]) [facility] ([facility]) [address] [place] [address] 01399 Hematocrit (Bld) [Volume fraction] 21.9 % Low 36.0-46.0 [facility] Comment on above: Performed By: #### 5 7021-8 #### KELECHI Garcia ([id number]) [facility] ([facility]) [address] [place] [address] 54162 Hemoglobin (Bld) [Mass/Vol] 7.0 g/dL Low 12.0-16.0 [facility] Comment on above: Performed By: #### 5 7021-8 #### KELECHI Garcia ([id number]) [facility] ([facility]) [address] [place] [address] 88531 Immature granulocytes (Bld) [#/Vol] 0.09 x10*3/uL Normal 0.00-0.50 [facility] Comment on above: Performed By: #### 5 7021-8 #### KELECHI Garcia ([id number]) [facility] ([facility]) [address] [place] [address] 48719 Immature granulocytes/100 WBC (Bld) 0.6 % Normal 0.0-0.9 [facility] Comment on above: Result Comment: Jannie ture Granulocyte Count (IG) includes promyelocytes, myelocytes and metamyelocytes but does not include bands. Percent differential counts (%) should be interpreted in the context of the absolute cell counts (cells/UL). Performed By: #### 5 7021-8 #### KELECHI Garcia ([id number]) [facility] ([facility]) [address] [place] [address] 56956 Lymphocytes (Bld) [#/Vol] 1.77 x10*3/uL Normal 0.80-3.00 [facility] Comment on above: Performed By: #### 5 7021-8 #### KELECHI Garcia ([id number]) [facility] ([facility]) [address] [place] [address] 09050 Lymphocytes/100 WBC (Bld) 11.4 % Normal 13.0-44.0 [facility] Comment on above: Performed By: #### 5 7021-8 #### KELECHI Garcia ([id number]) [facility] ([facility]) [address] [place] [address] 64516 MCH (RBC) [Entitic mass] 30.4 pg Normal 26.0-34.0 [facility] Comment on above: Performed By: #### 5 7021-8 #### KELECHI Garcia ([id number]) [facility] ([facility]) [address] [place] [address] 54712 MCHC (RBC) [Mass/Vol] 32.0 g/dL Normal 32.0-36.0 [facility] Comment on above: Performed By: #### 5 7021-8 #### KELECHI Garcia ([id number]) [facility] ([facility]) [address] [place] [address] 84632 MCV (RBC) [Entitic vol] 95 fL Normal 80-100 U [facility] Comment on above: Performed By: #### 5 7021-8 #### KELECHI Garcia ([id number]) [facility] ([facility]) [address] [place] [address] 01301 Monocytes (Bld) [#/Vol] 1.34 x10*3/uL High 0.05-0.80 [facility] Comment on above: Performed By: #### 5 7021-8 #### KELECHI Garcia ([id number]) [facility] ([facility]) [address] [place] [address] Monocytes/100 WBC (Bld) 8.6 % Normal 2.0-10.0 [facility] Comment on above: Performed By: #### 5 7021-8 #### KELECHI Garcia ([id number]) [facility] ([facility]) [address] [place] [address] 88539 Neutrophils (Bld) [#/Vol] 11.75 x10*3/uL High 1.60-5.50 [facility] Comment on above: Result Comment: Perc ent differential counts (%) should be interpreted in the context of the absolute cell counts (cells/uL). Performed By: #### 5 7021-8 #### KELECHI Garcia ([id number]) [facility] ([facility]) [address] [place] [address] 27307 Neutrophils/100 WBC (Bld) 75.7 % Normal 40.0-80.0 [facility] Comment on above: Performed By: #### 5 7021-8 #### KELECHI Garcia ([id number]) [facility] ([facility]) [address] [place] [address] 87885 Nucleated RBC/100 WBC (Bld) [Ratio] 0.0 /100 WBCs Normal 0.0-0.0 [facility] Comment on above: Performed By: #### 5 7021-8 #### KELECHI Garcia ([id number]) [facility] ([facility]) [address] [place] [address] 57362 Platelets (Bld) [#/Vol] 341 x10*3/uL Normal 150-450 [facility] Comment on above: Performed By: #### 5 7021-8 #### KELECHI Garcia ([id number]) [facility] ([facility]) [address] [place] [address] RBC (Bld) [#/Vol] 2.30 x10*6/uL Low 4.00-5.20 [facility] Comment on above: Performed By: #### 5 7021-8 #### KELECHI Garcia ([id number]) [facility] ([facility]) [address] [place] [address] WBC (Bld) [#/Vol] 15.5 x10*3/uL High 4.4-11.3 [facility] Comment on above: Performed By: #### 5 7021-8 #### KELECHI Garcia ([id number]) [facility] ([facility]) [address] [place] [address] CBC panel Auto (Bld)on 08-31 Erythrocyte distribution width (RBC) [Ratio] 15.9 % High 11.5 - 14.5 % [facility] Hematocrit (Bld) [Volume fraction] 26.1 % Low 36.0 - 46.0 % [facility] Hemoglobin (Bld) [Mass/Vol] 8.2 g/dL Low 12.0 - 16.0 g/dL [facility] Interpretation and review of laboratory results Abnormal [facility] MCH (RBC) [Entitic mass] 30.3 pg 26.0 - 34.0 pg [facility] MCHC (RBC) [Mass/Vol] 31.4 g/dL Low 32.0 - 36.0 g/dL [facility] MCV (RBC) [Entitic vol] 96 fL 80 - 100 fL [facility] Nucleated RBC/100 WBC (Bld) [Ratio] 0 % [facility] Platelets (Bld) [#/Vol] 450 10*3/uL [facility] RBC (Bld) [#/Vol] 2.71 10*6/uL Low [facility] WBC (Bld) [#/Vol] 15.2 10*3/uL High [facility] Erythrocyte distribution width (RBC) [Ratio] 15.9 % High 11.5-14.5 [facility] Comment on above: Performed By: #### 5 7021-8 #### KELECHI Garcia ([id number]) [facility] ([facility]) [address] [place] [address] 46569 Hematocrit (Bld) [Volume fraction] 26.1 % Low 36.0-46.0 [facility] Comment on above: Performed By: #### 5 7021-8 #### KELECHI Garcia ([id number]) [facility] ([facility]) [address] [place] [address] 55888 Hemoglobin (Bld) [Mass/Vol] 8.2 g/dL Low 12.0-16.0 [facility] Comment on above: Performed By: #### 5 7021-8 #### KELECHI Garcia ([id number]) [facility] ([facility]) [address] [place] [address] 71812 MCH (RBC) [Entitic mass] 30.3 pg Normal 26.0-34.0 [facility] Comment on above: Performed By: #### 5 7021-8 #### KELECHI Garcia ([id number]) [facility] ([facility]) [address] [place] [address] 92343 MCHC (RBC) [Mass/Vol] 31.4 g/dL Low 32.0-36.0 [facility] Comment on above: Performed By: #### 5 7021-8 #### KELECHI Garcia ([id number]) [facility] ([facility]) [address] [place] [address] 17620 MCV (RBC) [Entitic vol] 96 fL Normal 80-100 U [facility] Comment on above: Performed By: #### 5 7021-8 #### KELECHI Garcia ([id number]) [facility] ([facility]) [address] [place] [address] 12445 Nucleated RBC/100 WBC (Bld) [Ratio] 0.0 /100 WBCs Normal 0.0-0.0 [facility] Comment on above: Performed By: #### 5 7021-8 #### KELECHI Garcia ([id number]) [facility] ([facility]) [address] [place] [address] 79867 Platelets (Bld) [#/Vol] 450 x10*3/uL Normal 150-450 [facility] Comment on above: Performed By: #### 5 7021-8 #### KELECHI Garcia ([id number]) [facility] ([facility]) [address] [place] [address] 24185 RBC (Bld) [#/Vol] 2.71 x10*6/uL Low 4.00-5.20 [facility] Comment on above: Performed By: #### 5 7021-8 #### KELECHI Garcia ([id number]) [facility] ([facility]) [address] [place] [address] 53197 WBC (Bld) [#/Vol] 15.2 x10*3/uL High 4.4-11.3 [facility] Comment on above: Performed By: #### 5 7021-8 #### KELECHI Garcia ([id number]) [facility] ([facility]) [address] [place], [place] [address] Complete blood count panelon 08-31-2024 Erythrocyte distribution width (RBC) [Ratio] 16.3 % High 11.5-14.5 [facility] Comment on above: Performed By: #### 5 8410-2 #### KELECHI Garcia ([id number]) [facility] ([facility]) [address] [place] [address] 63039 Performed By: #### 5 7021-8 #### KELECHI Garcia ([id number]) [facility] ([facility]) [address] [place] [address] 48213 Hematocrit (Bld) [Volume fraction] 22.2 % Low 36.0-46.0 [facility] Comment on above: Performed By: #### 5 8410-2 #### KELECHI VELÁZQUEZ L ([id number]) [facility] ([facility]) [address] [place] [address] 06167 Performed By: #### 5 7021-8 #### KELECHI Garcia ([id number]) [facility] ([facility]) [address] [place] [address] 91891 Hemoglobin (Bld) [Mass/Vol] 7.2 g/dL Low 12.0-16.0 [facility] Comment on above: Performed By: #### 5 8410-2 #### KELECHI Garcia ([id number]) [facility] ([facility]) [address] [place] [address] 14795 Performed By: #### 5 7021-8 #### KELECHI Garcia ([id number]) [facility] ([facility]) [address] [place], [place] [address] MCH (RBC) [Entitic mass] 30.8 pg Normal 26.0-34.0 [facility] Comment on above: Performed By: #### 5 8410-2 #### KELECHI Garcia ([id number]) [facility] ([facility]) [address] [place], [place] [address] Performed By: #### 5 7021-8 #### KELECHI Garcia ([id number]) [facility] ([facility]) [address] [place], [place] [address] MCHC (RBC) [Mass/Vol] 32.4 g/dL Normal 32.0-36.0 [facility] Comment on above: Performed By: #### 5 8410-2 #### KELECHI Garcia ([id number]) [facility] ([facility]) [address] [place], [place] [address] Performed By: #### 5 7021-8 #### KELECHI Garcia ([id number]) [facility] ([facility]) [address] [place] [address] 41695 MCV (RBC) [Entitic vol] 95 fL Normal 80-100 U [facility] Comment on above: Performed By: #### 5 8410-2 #### KELECHI Garcia ([id number]) [facility] ([facility]) [address] [place] [address] 28897 Performed By: #### 5 7021-8 #### KELECHI Garcia ([id number]) [facility] ([facility]) [address] [place] [address] 85392 Nucleated RBC/100 WBC (Bld) [Ratio] 0.0 /100 WBCs Normal 0.0-0.0 [facility] Comment on above: Performed By: #### 5 8410-2 #### KELECHI Garcia ([id number]) [facility] ([facility]) [address] [place] [address] 35141 Performed By: #### 5 7021-8 #### KELECHI VELÁZQUEZ L ([id number]) [facility] ([facility]) [address] [place] [address] 56190 Platelets (Bld) [#/Vol] 332 x10*3/uL Normal 150-450 [facility] Comment on above: Performed By: #### 5 8410-2 #### KELECHI Garcia ([id number]) [facility] ([facility]) [address] [place] [address] 57920 Performed By: #### 5 7021-8 #### KELECHI VELÁZQUEZ L ([id number]) [facility] ([facility]) [address] [place] [address] 13825 RBC (Bld) [#/Vol] 2.34 x10*6/uL Low 4.00-5.20 [facility] Comment on above: Performed By: #### 5 8410-2 #### KELECHI Garcia ([id number]) [facility] ([facility]) [address] [place] [address] 68926 Performed By: #### 5 7021-8 #### KELECHI VELÁZQUEZ L ([id number]) [facility] ([facility]) [address] [place] [address] 03816 WBC (Bld) [#/Vol] 14.4 x10*3/uL High 4.4-11.3 [facility] Comment on above: Performed By: #### 5 8410-2 #### KELECHI VELÁZQUEZ L ([id number]) [facility] ([facility]) [address] [place] [address] 97728 Performed By: #### 5 7021-8 #### KELECHI Garcia ([id number]) [facility] ([facility]) [address] [place] [address] Comprehensive metabolic 2000 panelon 08-31-2024 Albumin BCP dye [Mass/Vol] 3.2 g/dL Low 3.4 - 5.0 g/dL [facility] ALP [Catalytic activity/Vol] 89 U/L 33 - 136 U/L [facility] ALT With P-5'-P [Catalytic activity/Vol] 18 U/L 7 - 45 U/L [facility] Comment on above: Patients treated wit h Sulfasalazine may generate falsely decreased results for ALT. Anion gap [Moles/Vol] 19 mmol/L [facility] AST With P-5'-P [Catalytic activity/Vol] 43 U/L High 9 - 39 U/L [facility] Bilirubin [Mass/Vol] 0.7 mg/dL 0.0 - 1 .2 mg/dL [facility] Calcium [Mass/Vol] 7.8 mg/dL Low 8.6 - 10. 6 mg/dL [facility] Chloride [Moles/Vol] 88 mmol/L Low 98 - 10 7 mmol/L [facility] CO2 [Moles/Vol] 29 mmol/L 21 - 32 mmol/L [facility] Creatinine [Mass/Vol] 7.69 mg/dL High 0.50 - 1.05 mg/dL [facility] GFR/1.73 sq M.predicted among non-blacks MDRD (S/P/Bld) [Vol rate/Area] 5 mL/min/{1.73_m2} Low - PINF [facility] Comment on above: Calculations of katy mated GFR are performed using the 2020 CKD-EPI Study Refit equation without the race variable for the IDMS-Traceable creatinine methods. https://jasn.asnjournals.org/content/early/ASN.2020 719482 Glucose [Mass/Vol] 86 mg/dL 74 - 99 mg/dL [facility] Potassium [Moles/Vol] 4.1 mmol/L 3.5 - 5.3 mmol/L [facility] Protein [Mass/Vol] 5.8 g/dL Low 6.4 - 8.2 g/dL [facility] Sodium [Moles/Vol] 132 mmol/L Low 136 - 145 mmol/L [facility] Urea nitrogen [Mass/Vol] 47 mg/dL High 6 - 23 mg/dL [facility] Albumin BCP dye [Mass/Vol] 3.2 g/dL Low 3.4-5.0 [facility] Comment on above: Performed By: #### 2 4323-8 #### KELECHI Garcia ([id number]) [facility] ([facility]) [address] [place] [address] ALP [Catalytic activity/Vol] 89 U/L Normal 33-136 [facility] Comment on above: Performed By: #### 2 4323-8 #### KELECHI Garcia ([id number]) [facility] ([facility]) [address] [place] [address] 48489 ALT With P-5'-P [Catalytic activity/Vol] 18 U/L Normal 7-45 [facility] Comment on above: Result Comment: Patsy ents treated with Sulfasalazine may generate falsely decreased results for ALT. Performed By: #### 2 4323-8 #### KELECHI Garcia ([id number]) [facility] ([facility]) [address] [place] [address] Anion gap [Moles/Vol] 19 mmol/L Normal [facility] Comment on above: Performed By: #### 2 4323-8 #### KELECHI Garcia ([id number]) [facility] ([facility]) [address] [place] [address] AST With P-5'-P [Catalytic activity/Vol] 43 U/L High 9-39 [facility] Comment on above: Performed By: #### 2 4323-8 #### KELECHI Garcia ([id number]) [facility] ([facility]) [address] [place] [address] Bilirubin [Mass/Vol] 0.7 mg/dL Normal 0.0-1.2 [facility] Comment on above: Performed By: #### 2 4323-8 #### KELECHI WEBSTERER L ([id number]) [facility] ([facility]) [address] [place] [address] 61854 Calcium [Mass/Vol] 7.8 mg/dL Low 8.6-10.6 [facility] Comment on above: Performed By: #### 2 4323-8 #### KELECHI VELEZMOTZER L ([id number]) [facility] ([facility]) [address] [place] [address] 63646 Chloride [Moles/Vol] 88 mmol/L Low 98-107 [facility] Comment on above: Performed By: #### 2 4323-8 #### KELECHI VELEZMOTZER L ([id number]) [facility] ([facility]) [address] [place] [address] 94087 CO2 [Moles/Vol] 29 mmol/L Normal 21-32 [facility] Comment on above: Performed By: #### 2 4323-8 #### KELECHI TAOTZER L ([id number]) [facility] ([facility]) [address] [place] [address] 09376 Creatinine [Mass/Vol] 7.69 mg/dL High 0.50-1.05 [facility] Comment on above: Performed By: #### 2 4323-8 #### KELECHI TAOTZER L ([id number]) [facility] ([facility]) [address] [place] [address] 92930 Glomerular filtration rate/1.73 sq M.predicted 5 mL/min/1.73m*2 Low >60 [facility] Comment on above: Result Comment: Calc ulations of estimated GFR are performed using the 2020 CKD-EPI Study Refit equation without the race variable for the IDMS-Traceable creatinine methods. https://jasn.asnjournals.org/content/early/ASN.2020 024116 Performed By: #### 2 4323-8 #### KELECHI TAOTZER L ([id number]) [facility] ([facility]) [address] [place] [address] Glucose [Mass/Vol] 86 mg/dL Normal 74-99 [facility] Comment on above: Performed By: #### 2 4323-8 #### KELECHI Garcia ([id number]) [facility] ([facility]) [address] [place] [address] 83079 Potassium [Moles/Vol] 4.1 mmol/L Normal 3.5-5.3 [facility] Comment on above: Performed By: #### 2 4323-8 #### KELECHI Garcia ([id number]) [facility] ([facility]) [address] [place] [address] 10190 Protein [Mass/Vol] 5.8 g/dL Low 6.4-8.2 [facility] Comment on above: Performed By: #### 2 4323-8 #### KELECHI Garcia ([id number]) [facility] ([facility]) [address] [place] [address] 98623 Sodium [Moles/Vol] 132 mmol/L Low 136-145 [facility] Comment on above: Performed By: #### 2 4323-8 #### KELECHI Garcia ([id number]) [facility] ([facility]) [address] [place] [address] 21487 Urea nitrogen [Mass/Vol] 47 mg/dL High 6-23 [facility] Comment on above: Performed By: #### 2 4323-8 #### KELECHI Garcia ([id number]) [facility] ([facility]) [address] [place] [address] 11712 HBV surface Ab Qn (S)on 08-04 Interpretation and review of laboratory results Abnormal [facility] HBV surface Ag IA Qlon 08-31 Interpretation and review of laboratory results Normal [facility] Hepatitis B surface antibody on 08-31-2024 HBV surface Ab Qn (S) High NINF [facility] Comment on above: Interpretive Criteri a: <10 mIU/mL Nonreactive >=10 mIU/mL Reactive Biotin interference may cause falsely decreased results. Patients taking a Biotin dose of up to 5 mg/day should refrain from taking Biotin for 24 hours before sample collection. Providers may contact their local laboratory for further information. Hepatitis B surface antigeno n 08-31-2024 HBV surface Ag IA Ql Non-Reactive Nonreactive [facility] Comment on above: Biotin interference may cause falsely decreased results. Patients taking a Biotin dose of up to 5 mg/day should refrain from taking Biotin for 24 hours before sample collection. Providers may contact their local laboratory for further information. Hepatitis B virus surface Ab on 08-31-2024 HBV surface Ab Qn (S) >1000.0 High <10.0 [facility] Comment on above: Result Comment: Inte rpretive Criteria: <10 mIU/mL Nonreactive >=10 mIU/mL Reactive Biotin interference may cause falsely decreased results. Patients taking a Biotin dose of up to 5 mg/day should refrain from taking Biotin for 24 hours before sample collection. Providers may contact their local laboratory for further information. Performed By: #### 5 7021-8 #### KELECHI Garcia ([id number]) [facility] ([facility]) [address] [place] [address] Hepatitis B virus surface Ag on 08-31-2024 HBV surface Ag IA Ql Non-Reactive Normal Nonreactive [facility] Comment on above: Result Comment: Biot in interference may cause falsely decreased results. Patients taking a Biotin dose of up to 5 mg/day should refrain from taking Biotin for 24 hours before sample collection. Providers may contact their local laboratory for further information. Performed By: #### 5 7021-8 #### KELECHI Garcia ([id number]) [facility] ([facility]) [address] [place], [place] [address] Iron and Iron binding capaci ty panelon 08-31-2024 Iron [Mass/Vol] 29 ug/dL Low 35 - 150 ug/dL [facility] Iron binding capacity [Mass/Vol] 139 ug/dL Low 240 - 445 ug/dL [facility] Iron binding capacity.unsaturated [Mass/Vol] 110 ug/dL 110 - 370 ug/dL [facility] Iron saturation [Mass fraction] 21 % Low 25 - 45 % [facility] Iron [Mass/Vol] 29 ug/dL Low 35-150 [facility] Comment on above: Performed By: #### 5 0190-8 #### KELECHI Garcia ([id number]) [facility] ([facility]) [address] [place] [address] 46054 Iron binding capacity [Mass/Vol] 139 ug/dL Low 240-445 [facility] Comment on above: Performed By: #### 5 0190-8 #### KELECHI Garcia ([id number]) [facility] ([facility]) [address] [place] [address] 16419 Iron binding capacity.unsaturated [Mass/Vol] 110 ug/dL Normal 110-370 [facility] Comment on above: Performed By: #### 5 0190-8 #### KELECHI Garcia ([id number]) [facility] ([facility]) [address] [place], [place] [address] Iron saturation [Mass fraction] 21 % Low 25-45 [facility] Comment on above: Performed By: #### 5 0190-8 #### KELECHI Garcia ([id number]) [facility] ([facility]) [address] [place] [address] 95411 Laboratory - Hematology and Cell counts 08-31-2024 Erythrocyte distribution width (RBC) [Ratio] 16.3 % High 11.5 - 14.5 % [facility] Hematocrit (Bld) [Volume fraction] 22.2 % Low 36.0 - 46.0 % [facility] Hemoglobin (Bld) [Mass/Vol] 7.2 g/dL Low 12.0 - 16.0 g/dL [facility] MCH (RBC) [Entitic mass] 30.8 pg 26.0 - 34.0 pg [facility] MCHC (RBC) [Mass/Vol] 32.4 g/dL 32.0 - 36.0 g/dL [facility] MCV (RBC) [Entitic vol] 95 fL 80 - 100 fL [facility] Nucleated RBC/100 WBC (Bld) [Ratio] 0 % [facility] Platelets (Bld) [#/Vol] 332 10*3/uL [facility] RBC (Bld) [#/Vol] 2.34 10*6/uL Low [facility] WBC (Bld) [#/Vol] 14.4 10*3/uL High [facility] Magnesiumon 08-31-2024 Magnesium [Mass/Vol] 2.04 mg/dL 1.60 - 2.40 mg/dL [facility] Magnesium [Mass/Vol] 2.04 mg/dL Normal 1.60-2.40 [facility] Comment on above: Performed By: #### 1 [id number] #### KELECHI Garcia ([id number]) [facility] ([facility]) [address] [place], [place] [id number] Magnesium [Mass/Vol]on 08-31 Interpretation and review of laboratory results Normal [facility] No Panel Informationon 08-31 Interpretation and review of laboratory results Abnormal [facility] Interpretation and review of laboratory results Abnormal [facility] Interpretation and review of laboratory results Abnormal [facility] PT and aPTT panel Coag (PPP) on 08-31-2024 aPTT Coag (PPP) [Time] 25 s Low [facility] INR Coag (PPP) [Relative time] 1 {INR} 0.9 - 1.1 [facility] Interpretation and review of laboratory results Abnormal [facility] PT Coag (PPP) [Time] 11.4 s [facility] The APTT is no longe r used for monitoring Unfractionated Heparin Therapy. For monitoring Heparin Therapy, use the Heparin Assay. [facility] aPTT Coag (PPP) [Time] 25 s Low 26-36 [facility] Comment on above: Order Comment: The A PTT is no longer used for monitoring Unfractionated Heparin Therapy. For monitoring Heparin Therapy, use the Heparin Assay. Performed By: #### 3 4529-8 #### KELECHI Garcia ([id number]) [facility] ([facility]) [address] [place] [address] INR Coag (PPP) [Relative time] 1.0 Normal 0.9-1.1 [facility] Comment on above: Order Comment: The A PTT is no longer used for monitoring Unfractionated Heparin Therapy. For monitoring Heparin Therapy, use the Heparin Assay. Performed By: #### 3 4529-8 #### KELECHI Garcia ([id number]) [facility] ([facility]) [address] [place] [id number] PT Coag (PPP) [Time] 11.4 s Normal 9.8-12.4 [facility] Comment on above: Order Comment: The A PTT is no longer used for monitoring Unfractionated Heparin Therapy. For monitoring Heparin Therapy, use the Heparin Assay. Performed By: #### 3 4529-8 #### KELECHI Garcia ([id number]) [facility] ([facility]) [address] [place] [id number] Phosphateon 08-31-2024 Phosphate [Mass/Vol] 7.0 mg/dL High 2.5-4.9 [facility] Comment on above: Performed By: #### 2 777-1 #### KELECHI Garcia ([id number]) [facility] ([facility]) [address] [place] [id number] Phosphate [Mass/Vol]on 08-31 Interpretation and review of laboratory results Abnormal [facility] Phosphoruson 08-31-2024 Phosphate [Mass/Vol] 7 mg/dL High 2.5 - 4 .9 mg/dL [facility] Vancomycinon 08-31-2024 Vancomycin [Mass/Vol] 35.9 ug/mL High 5.0 - 20.0 ug/mL [facility] Vancomycin [Mass/Vol] 35.9 ug/mL High 5.0-20.0 [facility] Comment on above: Order Comment: [...] By: #### 5 7021-8 #### KELECHI Garcia ([id number]) [facility] ([facility]) [address] [place] [address] Vancomycin [Mass/Vol]on 08-04 Vancomycin levels can be [...] 30.0-40.0 ug/mL Trough (all ages): 10.0-20.0 ug/mL [facility] US RLE Soft Tissue OR Joint Limitedon [...] by: HONORIO GRANDE MD, Date: 08/30/2024 10:40 [facility] CTA RT Lower Extremity w/wo contraston [...] ROBSON GENAO MD, MD Date: 08/30/2024 07:31 [facility] Comment on above: Order Comment: TRAUM A Please call CT department to schedule [phone] Leukodepleted Red Cells Rele [facility] 08-29-2024 Product Code E0336 [facility] Comment on above: Performed By: #### R LRC ####[place] [address] Rel By [facility] Comment on above: Performed By: #### R LRC ####[facility] [place] [address] Rel Date 08/29/2024 [facility] Comment on above: Performed By: #### R LRC ####[facility] [place] [address] Rel Time 1545 [facility] Comment on above: Performed By: #### R LRC ####[facility] [place] [address] Rel To [facility] Comment on above: Performed By: #### R LRC ####[facility] [place] [address] Unit # [id number] [phone] [facility] Comment on above: Performed By: #### R LRC ####[facility] [place] [address] CT RT Lower Extremity wo con traston [...] RONALD RICE MD, MD Date: 08/27/2024 03:58 [facility] Comment on above: Order Comment: witho ut Contrast (No Oral or IV contrast) - look for abscess, right thigh Leukodepleted Red Cells [facility] 08-20-2024 Product Code E0336 [facility] Comment on above: Performed By: #### R LRC ####[place] [address] Rel By [facility] Comment on above: Performed By: #### R LRC ####[place] [address] Rel Date 08/20/24 [facility] Comment on above: Performed By: #### R LRC ####[place] [address] Rel Time 09:30 [facility] Comment on above: Performed By: #### R LRC ####[facility] [place] [address] Rel To CAT [facility] Comment on above: Performed By: #### R LRC ####[facility] [place], [place] [id number] Unit # [id number] [facility] Comment on above: Performed By: #### R LRC ####[place] [address] [place] [address] XR Chest 1 view-Mobileon XR Chest 1 view-Mobile CHEST CPT 58066 - RADIOLOGIC EXAMINATION, CHEST; SINGLE VIEW COMPARISON: [...] CARLY GIBSON MD, MD Date: 08/18/2024 09:47 [facility] Comment on above: Order Comment: TRAUM [...] JORGITO LA MD, MD Date: 08/17/2024 19:11 [facility] XR Chest 1 view-Mobile Chest radiograph Comparison: August 16. Findings: Endotracheal tube above liane. NG tube below diaphragm. No pneumothorax. Mild vascular congestion. Persistent subtle bilateral pulmonary opacities overall improving. No significant effusion. Heart size stable. Impression: No pneumothorax Report electronically signed by: Jamie Hays MD on August 17, 08:04 PM EDT Read by: JAMIE HAYS DO, MD Date: 08/17/2024 20:04 [facility] Comment on above: Order Comment: Paul lyons 0600 CK Totalon 08-16-2024 CK [Catalytic activity/Vol] 20 U/L Low 26-192 [facility] Comment on above: Performed By: #### C K ####[facility] [place] [address] US Aspiration Absc/Hemat/Bul /Cyston 08-16-2024 US Aspiration Absc/Hemat/Bul/Cyst ULTRASOUND GUIDED ABSCESS ASPIRATION: CLINICAL INDICATION: Right thigh collection. TECHNIQUE: Following discussion with the patient regarding risks, benefits and alternatives along with timeout to document the patient's name, site and nature of the procedure, the skin was sterilely prepared and local anesthesia was applied. Under real-time ultrasound guidance, a 5 British Yueh needle was advanced into the collection [...] FRANCO MAJANO MD, MD Date: 08/16/2024 16:13 [facility] US Guid Ndl Plcmt W/Imageon 08-16-2024 US Guid Ndl Plcmt W/Image ULTRASOUND GUIDED ABSCESS ASPIRATION: CLINICAL INDICATION: Right thigh collection. TECHNIQUE: Following discussion with the patient regarding risks, benefits and alternatives along with timeout to document the patient's name, site and nature of the procedure, the skin was sterilely prepared and local anesthesia was applied. Under real-time ultrasound guidance, a 5 [place] Yueh needle was advanced into the collection [...] FRANCO MAJANO MD, MD Date: 08/16/2024 16:13 Normal [facility] XR Abdomen [...] CARLY GIBSON MD, MD Date: 08/16/2024 07:45 [facility] XR Chest 1 view-Mobileon XR Chest 1 view-Mobile CHEST CPT 14957 - RADIOLOGIC EXAMINATION, CHEST; SINGLE VIEW COMPARISON: [...] CARLY GIBSON MD, MD Date: 08/16/2024 07:44 [facility] XR Hip Right 2-3 viewson XR Hip Right 2-3 views 2 [facility] HIP COMPARISON: No comparison exams [...] PM EDT Read by: JUNI WOOD MD, Date: 08/16/2024 12:[address] [facility] CT Brain wo contraston 08-15 CT [...] MATILDE TURNER DO, MD Date: 08/15/2024 05:16 [facility] Comment on above: Order Comment: CONTR [...] DHIRAJ LAGOS DO, MD Date: 08/15/2024 05:49 [facility] XR Chest 1 view-Mobileon XR Chest 1 view-Mobile CHEST CPT 67780 - RADIOLOGIC EXAMINATION, CHEST; SINGLE VIEW COMPARISON: [...] CARLY GIBSON MD, MD Date: 08/15/2024 19:33 [facility] XR Chest 1 view-Mobile Chest. Single [...] DHIRAJ LAGOS DO, MD Date: 08/15/2024 05:50 [facility] CT Brain wo contraston 08-14 CT [...] KEV SANTANA MD, MD Date: 08/14/2024 20:14 [facility] Comment on above: Order Comment: TRAUM [...] KEV SANTANA MD, MD Date: 08/14/2024 21:01 [facility] Comment on above: Order Comment: TRAUM A Please call CT department to schedule [phone] CTA Head and Neck w/wo contr jenna 08-14-2024 CTA Head and Neck w/wo contrast CTA OF THE NECK (CAROTIDS) (CPT 62225) TECHNICAL: CT angiography of the neck/carotid vasculature [...] bilateral pulmonary opacities CTA OF THE HEAD/BRAIN ([place]) (CPT 06439) TECHNICAL: CT angiography of the neck/carotid vasculature [...] appear normal. POSTERIOR CEREBRAL ARTERY CIRCULATION: Visualized LAB AID segments appear normal. 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 ADDITIONAL FINDINGS: None RECOMMENDATIONS: Conventional arteriography is a more sensitive evaluation for small aneurysms. If the patient's symptomology persists then consideration for further evaluation is warranted. IMPRESSION: 1. 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 Correlate with MRI Report electronically signed by: Kev Snatana MD on August 14, 08:25 PM EDT Read by: KEV SANTANA MD, MD Date: 08/14/2024 20:25 [facility] Comment on above: Order Comment: CONTR AST PER RADIOLOGIST DISCRETION Please call CT department to schedule [phone] XR Chest 1 view-Mobileon XR Chest 1 [...] KEV SANTANA MD, MD Date: 08/14/2024 20:19 [facility] Basic metabolic 1998 panelon 07-17-2024 Anion gap [Moles/Vol] 21 mmol/L High 3 - 13 mmol/L [facility] [employer] Calcium [Mass/Vol] 8.5 mg/dL Low 8.8 - 10. 0 mg/dL [facility] [employer] Chloride [Moles/Vol] 96 mmol/L Low 98 - 10 7 mmol/L [facility] [employer] CO2 [Moles/Vol] 16 mmol/L Low 23 - 31 mmol/L [facility] [employer] Creatinine [Mass/Vol] 9.04 mg/dL High 0.57 - 1.11 mg/dL [facility] GFR/1.73 sq M.predicted (S/P/Bld) [Vol rate/Area] 4.2 mL/min Low - PINF [facility] [employer] Comment on above: Calculation based on the Chronic Kidney Disease Epidemiology Collaboration (CKD-EPI) equation refit without adjustment for race Glucose [Mass/Vol] 92 mg/dL 82 - 115 mg/dL [facility] [employer] Interpretation and review of laboratory results Abnormal [facility] [employer] Potassium [Moles/Vol] 5.6 mmol/L High 3.5 - 5.1 mmol/L [facility] [employer] Comment on above: Plasma potassium bhaskar ues may be up to 0.5 mmol/L lower than serum values. Sodium [Moles/Vol] 133 mmol/L Low 136 - 145 mmol/L [facility] [employer] Urea nitrogen [Mass/Vol] 84 mg/dL High 9 - 23 mg/dL [facility] [employer] CBC W Auto Differential pane l (Bld)on 07-17-2024 Basophils (Bld) [#/Vol] 0 10*3/uL 0.0 - 0.2 10*3/uL [facility] [employer] Basophils/100 WBC (Bld) 0.1 % 0.0 - 2.0 % [facility] [employer] Eosinophils (Bld) [#/Vol] 0 10*3/uL 0.0 - 0.5 10*3/uL [facility] [employer] Eosinophils/100 WBC (Bld) 0.1 % 0.0 - 6.0 % [facility] [employer] Erythrocyte distribution width (RBC) [Ratio] 16.3 % High 11.5 - 15.0 % [facility] Hematocrit (Bld) [Volume fraction] 34.9 % Low 35.0 - 47.0 % [facility] Hemoglobin (Bld) [Mass/Vol] 11.5 g/dL Low 11.7 - 16.0 g/dL [facility] [employer] Immature granulocytes (Bld) [#/Vol] 0.1 10*3/uL High NINF - 0.1 10*3/uL [facility] Immature granulocytes/100 WBC (Bld) 0.7 % 0.0 - 2.0 % [facility] Interpretation and review of laboratory results Abnormal [facility] Lymphocytes (Bld) [#/Vol] 0.9 10*3/uL Low 1.0 - 4.3 10*3/uL [facility] Lymphocytes/100 WBC (Bld) 12.2 % Low 15.0 - 45.0 % [facility] MCH (RBC) [Entitic mass] 31.8 pg 26.0 - 34.0 pg [facility] MCHC (RBC) [Mass/Vol] 33 % 30.5 - 36.0 % [facility] MCV (RBC) [Entitic vol] 96.4 fL 77.0 - 99.0 fL [facility] [employer] Monocytes (Bld) [#/Vol] 0.2 10*3/uL 0.0 - 0.9 10*3/uL [facility] Monocytes/100 WBC (Bld) 3.2 % Low 5.0 - 13.0 % [facility] Neutrophils (Bld) [#/Vol] 6.2 10*3/uL 1.8 - 7.5 10*3/uL [facility] Neutrophils/100 WBC (Bld) 83.7 % High 38.0 - 82.0 % [facility] Nucleated RBC/100 WBC (Bld) [Ratio] 0 % [facility] [employer] Platelet mean volume (Bld) [Entitic vol] 11.3 fL 9.0 - 12.7 fL [facility] Platelets (Bld) [#/Vol] 325 10*3/uL 140 - 440 10*3/uL [facility] RBC (Bld) [#/Vol] 3.62 10*6/uL Low 3.80 - 5.2 0 10*6/uL [facility] WBC (Bld) [#/Vol] 7.4 10*3/uL 3.6 - 10.7 10*3/uL [facility] [employer] Laboratory - Chemistry and C hemistry - challengeon 07-17-2024 Magnesium [Mass/Vol] 2.3 mg/dL 1.6 - 2 .6 mg/dL [facility] [employer] Magnesium [Mass/Vol]on 07-17 Interpretation and review of laboratory results Normal [facility] [employer] Higher values can be expected in females during menses. [facility] [employer] No Panel Informationon 07-17 2h Troponin HS (Serial 2nd Troponin) 82 ng/L High NINF - 14 ng/L [facility] [employer] Interpretation and review of laboratory results Abnormal [facility] [employer] Sinus rhythm Consider left ventricular hypertrophy Electronically Signed On 07-17-2024 20:17:37 EDT by Bryant Jameson CV Bryant Rooney MD - 07/17/2024 IMPRESSION: Sinus rhythm Consider left ventricular hypertrophy Electronically Signed On 07-17-2024 20:17:37 EDT by Bryant Jameson [facility] [employer] 2h Troponin HS (Serial 2nd Troponin) 33 ng/L High NINF - 14 ng/L [facility] [employer] Interpretation and review of laboratory results Abnormal [facility] No Panel InformationOrdered By: Bryant Jameson on 07-17-2024 P [place] 99 degrees [employer] Phone: MS Interval 119 ms [employer] Phone: QRS [place] 42 degrees [employer] Phone: QRSD Interval 82 ms [employer] Phone: QT Interval 391 ms [employer] Work Phone: QTC Interval 452 ms [employer] Work Phone: T Wave [place] 67 degrees [employer] Work Phone: [employer] Phone: Vital signsOrdered By: Bryant Jameson on 07-17-2024 Heart rate 80 /min bpm [employer] Work Phone: XR Chest Single viewon 07-17 No acute cardiopulmonary disease. Report Dictated on Electronically Signed By: Veronica Monsivais MD Electronically Signed Date/Time: 07/17/2024 3:00 PM EDT [facility] Name[facility] AOPOR[facility] 1950 [id number] Exam Date/Time: 07/17/2024 14:45 Procedure: XR CHEST [...] changes of the thoracic spine are noted. [facility] Veronica Monsivais MD - 07/17/2024 Patient Name: APOORVA [facility]ONZALEZ : 1950 [id number] Exam Date/Time: 07/17/2024 14:45 Procedure: XR CHEST [...] Electronically Signed Date/Time: 07/17/2024 3:00 PM EDT [facility] Radiology Study observation (narrative) [facility] [employer] XR Chest Single viewOrdered By: Veronica Monsivais on 07-17-2024 [facility] CBC W Auto Differential pane l (Bld)on 06-29-2024 Basophils (Bld) [#/Vol] 0.1 10*3/uL 0.0 - 0.2 10*3/uL [facility] Basophils/100 WBC (Bld) 0.9 % 0.0 - 2.0 % [facility] Eosinophils (Bld) [#/Vol] 0.2 10*3/uL 0.0 - 0.5 10*3/uL [facility] Eosinophils/100 WBC (Bld) 1.6 % 0.0 - 6.0 % [facility] Erythrocyte distribution width (RBC) [Ratio] 16.1 % High 11.5 - 15.0 % [facility] Hematocrit (Bld) [Volume fraction] 24 % Low 35.0 - 47.0 % [facility] Hemoglobin (Bld) [Mass/Vol] 8 g/dL Low 11.7 - 16.0 g/dL [facility] Immature granulocytes (Bld) [#/Vol] 0 10*3/uL NINF - 0.1 10*3/uL [facility] Immature granulocytes/100 WBC (Bld) 0.4 % 0.0 - 2.0 % [facility] Interpretation and review of laboratory results Abnormal [facility] Lymphocytes (Bld) [#/Vol] 1.6 10*3/uL 1.0 - 4.3 10*3/uL [facility] Lymphocytes/100 WBC (Bld) 16 % 15.0 - 45.0 % [facility] MCH (RBC) [Entitic mass] 31.5 pg 26.0 - 34.0 pg [facility] MCHC (RBC) [Mass/Vol] 33.3 % 30.5 - 36.0 % [facility] MCV (RBC) [Entitic vol] 94.5 fL 77.0 - 99.0 fL [facility] Monocytes (Bld) [#/Vol] 1 10*3/uL High 0.0 - 0.9 10*3/uL [facility] Monocytes/100 WBC (Bld) 9.5 % 5.0 - 13.0 % [facility] Neutrophils (Bld) [#/Vol] 7.3 10*3/uL 1.8 - 7.5 10*3/uL [facility] Neutrophils/100 WBC (Bld) 71.6 % 38.0 - 82.0 % [facility] Nucleated RBC/100 WBC (Bld) [Ratio] 0 % [facility] Platelet mean volume (Bld) [Entitic vol] 10.4 fL 9.0 - 12.7 fL [facility] Platelets (Bld) [#/Vol] 370 10*3/uL 140 - 440 10*3/uL [facility] RBC (Bld) [#/Vol] 2.54 10*6/uL Low 3.80 - 5.2 0 10*6/uL [facility] WBC (Bld) [#/Vol] 10.2 10*3/uL 3.6 - 10.7 10*3/uL [facility] CT Head WO contraston 2024 No acute intracranial abnormalities or significant change from the prior study. Generalized brain parenchymal volume loss and moderate chronic small vessel ischemic changes bilaterally. Report Dictated on Electronically Signed By: Andrea Gonzales MD Electronically Signed Date/Time: 06/29/2024 7:49 AM EDT [facility] [employer] Patient Name: APOORVA GONZALEZ : 1950 [...] included paranasal sinuses and orbits are normal. [facility] Andrea Gonzales M D - 06/29/2024 [...] Electronically Signed Date/Time: 06/29/2024 7:49 AM EDT [facility] [employer] Radiology Study observation (narrative) [facility] [employer] CT Head WO contrastOrdered B y: Andrea Gonzales on 06-29-2024 [facility] [employer] Work Phone: Comprehensive metabolic 1998 panelon 06-29-2024 Albumin [Mass/Vol] 3.4 g/dL 3.4 - 4.8 g/dL [facility] [employer] ALP [Catalytic activity/Vol] 93 U/L 40 - 150 U/L [facility] [employer] ALT [Catalytic activity/Vol] 8 U/L NINF - 30 U/L [facility] [employer] Anion gap [Moles/Vol] 20 mmol/L High 3 - 13 mmol/L [facility] [employer] AST [Catalytic activity/Vol] 23 U/L [facility] U/L [facility] [employer] Bilirubin [Mass/Vol] 0.6 mg/dL [facility] - 1.2 mg/dL [facility] [employer] Calcium [Mass/Vol] 8.4 mg/dL Low 8.8 - 10. 0 mg/dL [facility] [employer] Chloride [Moles/Vol] 93 mmol/L Low 98 - 10 7 mmol/L [facility] [employer] CO2 [Moles/Vol] 24 mmol/L 23 - 31 mmol/L [facility] [employer] Creatinine [Mass/Vol] 11.11 mg/dL High 0.57 - 1.11 mg/dL [facility] [employer] GFR/1.73 sq M.predicted (S/P/Bld) [Vol rate/Area] 3.3 mL/min Low - PINF [facility] [employer] Comment on above: Calculation based on the Chronic Kidney Disease Epidemiology Collaboration (CKD-EPI) equation refit without adjustment for race Glucose [Mass/Vol] 89 mg/dL 82 - 115 mg/dL [facility] Potassium [Moles/Vol] 6 mmol/L High 3.5 - 5.1 mmol/L [facility] Comment on above: Plasma potassium bhaskar ues may be up to 0.5 mmol/L lower than serum values. Protein [Mass/Vol] 7.1 g/dL 6.4 - 8.3 g/dL [facility] Sodium [Moles/Vol] 137 mmol/L 136 - 145 mmol/L [facility] Urea nitrogen [Mass/Vol] 96 mg/dL High 9 - 23 mg/dL [facility] Free T4 [Mass/Vol]on 025 Free T4 Dialysis [Mass/Vol] 1.4 ng/dL 0.70 - 1.48 ng/dL [facility] Laboratory - Chemistry and C hemistry - challengeon 06-29-2024 TSH Qn 0.95 m[IU]/L [facility] Magnesium [Mass/Vol] 2.9 mg/dL High 1.6 - 2 .6 mg/dL [facility] Ammonia (P) [Moles/Vol] 22 umol/L 18 - 72 umol/L [facility] Magnesium [Mass/Vol]on 06-29 Higher values can be expected in females during menses. [facility] No Panel Informationon 06-29 Interpretation and review of laboratory results Normal [facility] Interpretation and review of laboratory results Abnormal [facility] Interpretation and review of laboratory results Normal [facility] P [place] 80 degrees [facility] MS Interval 124 ms [facility] QRS [place] 42 degrees [facility] QRSD Interval 108 ms [facility] QT Interval 422 ms [facility] QTC Interval 497 ms [facility] T Wave [place] 68 degrees [facility] Sinus rhythm Incomplete left bundle branch block Probable left ventricular hypertrophy Anterior Q waves, possibly due to LVH Electronically Signed On 06-29-2024 07:59:25 EDT by Veronica Abebe CV Veronica Sharma MD - 06/29/2024 IMPRESSION: Sinus rhythm Incomplete left bundle branch block Probable left ventricular hypertrophy Anterior Q waves, possibly due to LVH Electronically Signed On 06-29-2024 07:59:25 EDT by Veronica Abebe [facility] Vital signson 06-29-2024 Heart rate 83 /min bpm [facility] DBT Breast - bilateral calvin jimenez 06-09-2024 No mammographic evidence of malignancy. ASSESSMENT: [...] MD Electronically Signed Date/Time: 06/09/2024 2:24 PM [facility] [employer] Patient Name: APOORVA GONZALEZ : 1950 Exam Date/Time: 06/09/2024 13:19 Procedure: BI MAMMOGRAM SCREENING TOMOSYNTHESIS BILATERAL Ordering Provider: SPAIN ABIGAIL Reason For Exam: This exam was performed at [facility] at [address] [place] [address] [facility] [address] PATIENT CANCER HISTORY: No Personal History of Cancer FAMILY CANCER HISTORY: Cousin Breast Cancer age 32 Brother Prostate Cancer age 69 Maternal Aunt Stomach Cancer age 70 Image views: 2D Bilateral CC and MLO views were acquired. 3D Bilateral CC and MLO views were acquired. Images were reviewed with CAD. Markings on images: BB's = Nipples; skin lesions [place] = Palpable Line = Scar COMPARISON: 01/12/2023 and 11/28/2020 TISSUE DENSITY: BIRADS C - The breasts are heterogeneously dense, which may obscure small masses. FINDINGS: No suspicious masses, architectural distortions or suspiciously clustered microcalcifications are identified. There is no evidence of skin thickening or nipple retraction. There are no significant changes when compared with prior studies. [facility] Nalini Márquez MD - 06/09/2024 Patient Name: APOORVA GONZALEZ : 1950 [facility]#: [id number] Exam Date/Time: 06/09/2024 13:19 Procedure: BI MAMMOGRAM SCREENING TOMOSYNTHESIS BILATERAL Ordering Provider: SPAIN ABIGAIL Reason For Exam: This exam was performed at [facility] at [address] [place] [address] [facility] [address] PATIENT CANCER HISTORY: No Personal History of Cancer FAMILY CANCER HISTORY: Cousin Breast Cancer age 32 Brother Prostate Cancer age 69 Maternal Aunt Stomach Cancer age 70 Image views: 2D Bilateral CC and MLO views were acquired. 3D Bilateral CC and MLO views were acquired. Images were reviewed with CAD. Markings on images: BB's = Nipples; skin lesions [place] = Palpable Line = Scar COMPARISON: 01/12/2023 [...] of this examination. LIFETIME BREAST CANCER RISK: Veraer-Martina 8: 2.92% - If greater than or [...] Electronically Signed Date/Time: 06/09/2024 2:24 PM EST [facility] Radiology Study observation (narrative) [facility] [employer] DBT Breast - bilateral scree ningOrdered By: Nalini Márquez on 06-09-2024 [facility] [employer] Work Phone: Basic metabolic 1998 panelOr dered By: Yonatan Cornell on 03-03-2024 Anion gap [Moles/Vol] 12 mmol/L 3 - 13 mmol/L [facility] [employer] Calcium [Mass/Vol] 8.3 mg/dL Low 8.4 - 10. 4 mg/dL [facility] [employer] Chloride [Moles/Vol] 98 mmol/L 98 - 10 7 mmol/L [facility] [employer] CO2 [Moles/Vol] 28 mmol/L 22 - 30 mmol/L [facility] [employer] Creatinine [Mass/Vol] 8.03 mg/dL High 0.52 - 1.04 mg/dL [facility] [employer] GFR/1.73 sq M.predicted (S/P/Bld) [Vol rate/Area] 4.9 mL/min Low - PINF [facility] [employer] Comment on above: Calculation based on the Chronic Kidney Disease Epidemiology Collaboration (CKD-EPI) equation refit without adjustment for race Glucose [Mass/Vol] 91 mg/dL 70 - 100 mg/dL [facility] Interpretation and review of laboratory results Abnormal [facility] [employer] Potassium [Moles/Vol] 5 mmol/L 3.5 - 5.1 mmol/L [facility] [employer] Sodium [Moles/Vol] 138 mmol/L 135 - 145 mmol/L [facility] [employer] Urea nitrogen [Mass/Vol] 42 mg/dL High 7 - 17 mg/dL [facility] [employer] CBC W Auto Differential pane l (Bld)on 03-03-2024 Basophils (Bld) [#/Vol] 0.1 10*3/uL 0.0 - 0.2 10*3/uL [facility] Basophils/100 WBC (Bld) 1.1 % 0.0 - 2.0 % [facility] [employer] Eosinophils (Bld) [#/Vol] 0.3 10*3/uL 0.0 - 0.5 10*3/uL [facility] [employer] Eosinophils/100 WBC (Bld) 4 % 0.0 - 6.0 % [facility] [employer] Erythrocyte distribution width (RBC) [Ratio] 16.8 % High 11.5 - 15.0 % [facility] Hematocrit (Bld) [Volume fraction] 32.8 % Low 35.0 - 47.0 % [facility] Hemoglobin (Bld) [Mass/Vol] 10.2 g/dL Low 11.7 - 16.0 g/dL [facility] [employer] Immature granulocytes (Bld) [#/Vol] 0 10*3/uL NINF - 0.1 10*3/uL [facility] [employer] Immature granulocytes/100 WBC (Bld) 0.4 % 0.0 - 2.0 % [facility] Interpretation and review of laboratory results Abnormal [facility] Lymphocytes (Bld) [#/Vol] 1.9 10*3/uL 1.0 - 4.3 10*3/uL [facility] Lymphocytes/100 WBC (Bld) 24.8 % 15.0 - 45.0 % [facility] MCH (RBC) [Entitic mass] 30.9 pg 26.0 - 34.0 pg [facility] MCHC (RBC) [Mass/Vol] 31.1 % 30.5 - 36.0 % [facility] MCV (RBC) [Entitic vol] 99.4 fL High 77.0 - 99.0 fL [facility] Monocytes (Bld) [#/Vol] 0.6 10*3/uL 0.0 - 0.9 10*3/uL [facility] Monocytes/100 WBC (Bld) 7.8 % 5.0 - 13.0 % [facility] Neutrophils (Bld) [#/Vol] 4.7 10*3/uL 1.8 - 7.5 10*3/uL [facility] Neutrophils/100 WBC (Bld) 61.9 % 38.0 - 82.0 % [facility] Nucleated RBC/100 WBC (Bld) [Ratio] 0 % [facility] Platelet mean volume (Bld) [Entitic vol] 10.4 fL 9.0 - 12.7 fL [facility] Platelets (Bld) [#/Vol] 409 10*3/uL 140 - 440 10*3/uL [facility] RBC (Bld) [#/Vol] 3.3 10*6/uL Low 3.80 - 5.2 0 10*6/uL [facility] WBC (Bld) [#/Vol] 7.5 10*3/uL 3.6 - 10.7 10*3/uL [facility] Laboratory - Chemistry and C hemistry - challengeon 03-03-2024 Glucose [Mass/Vol] 74 mg/dL 70 - 100 mg/dL [facility] Glucose [Mass/Vol] 90 mg/dL 70 - 100 mg/dL [facility] No Panel Informationon 03-03 Interpretation and review of laboratory results Normal [facility] Performed by: [facility], [address] [place] [id number] CLIA ID: [id number] [facility] Interpretation and review of laboratory results Normal [facility] Performed by: [facility], [address] [place] [id number] CLIA ID: [id number] [facility] Basic metabolic 1998 panelOr dered By: Yogi Stanley on 03-02-2024 Anion gap [Moles/Vol] 20 mmol/L High 3 - 13 mmol/L [facility] Calcium [Mass/Vol] 8.8 mg/dL 8.4 - 10. 4 mg/dL [facility] Chloride [Moles/Vol] 97 mmol/L Low 98 - 10 7 mmol/L [facility] CO2 [Moles/Vol] 20 mmol/L Low 22 - 30 mmol/L [facility] Creatinine [Mass/Vol] 11.21 mg/dL High 0.52 - 1.04 mg/dL [facility] GFR/1.73 sq M.predicted (S/P/Bld) [Vol rate/Area] 3.3 mL/min Low - PINF [facility] Comment on above: Calculation based on the Chronic Kidney Disease Epidemiology Collaboration (CKD-EPI) equation refit without adjustment for race Glucose [Mass/Vol] 110 mg/dL High 70 - 100 mg/dL [facility] Interpretation and review of laboratory results Abnormal [facility] Potassium [Moles/Vol] 6.4 mmol/L Critically high 3.5 - 5.1 mmol/L [facility] Sodium [Moles/Vol] 137 mmol/L 135 - 145 mmol/L [facility] Urea nitrogen [Mass/Vol] 58 mg/dL High 7 - 17 mg/dL [facility] CBC W Auto Differential pane l (Bld)on 03-02-2024 Basophils (Bld) [#/Vol] 0.1 10*3/uL 0.0 - 0.2 10*3/uL [facility] Basophils/100 WBC (Bld) 1.1 % 0.0 - 2.0 % [facility] Eosinophils (Bld) [#/Vol] 0.2 10*3/uL 0.0 - 0.5 10*3/uL [facility] Eosinophils/100 WBC (Bld) 2.1 % 0.0 - 6.0 % [facility] Erythrocyte distribution width (RBC) [Ratio] 16.6 % High 11.5 - 15.0 % [facility] Hematocrit (Bld) [Volume fraction] 32.3 % Low 35.0 - 47.0 % [facility] Hemoglobin (Bld) [Mass/Vol] 10.2 g/dL Low 11.7 - 16.0 g/dL [facility] Immature granulocytes (Bld) [#/Vol] 0 10*3/uL NINF - 0.1 10*3/uL [facility] Immature granulocytes/100 WBC (Bld) 0.4 % 0.0 - 2.0 % [facility] Lymphocytes (Bld) [#/Vol] 1.2 10*3/uL 1.0 - 4.3 10*3/uL [facility] Lymphocytes/100 WBC (Bld) 14.4 % Low 15.0 - 45.0 % [facility] MCH (RBC) [Entitic mass] 30.6 pg 26.0 - 34.0 pg [facility] MCHC (RBC) [Mass/Vol] 31.6 % 30.5 - 36.0 % [facility] MCV (RBC) [Entitic vol] 97 fL 77.0 - 99.0 fL [facility] Monocytes (Bld) [#/Vol] 0.5 10*3/uL 0.0 - 0.9 10*3/uL [facility] Monocytes/100 WBC (Bld) 5.4 % 5.0 - 13.0 % [facility] Neutrophils (Bld) [#/Vol] 6.5 10*3/uL 1.8 - 7.5 10*3/uL [facility] Neutrophils/100 WBC (Bld) 76.6 % 38.0 - 82.0 % [facility] Nucleated RBC/100 WBC (Bld) [Ratio] 0 % [facility] Platelet mean volume (Bld) [Entitic vol] 10.3 fL 9.0 - 12.7 fL [facility] Platelets (Bld) [#/Vol] 406 10*3/uL 140 - 440 10*3/uL [facility] RBC (Bld) [#/Vol] 3.33 10*6/uL Low 3.80 - 5.2 0 10*6/uL [facility] WBC (Bld) [#/Vol] 8.5 10*3/uL 3.6 - 10.7 10*3/uL [facility] Laboratory - Chemistry and C hemistry - challengeon 03-02-2024 Glucose [Mass/Vol] 124 mg/dL High 70 - 100 mg/dL [facility] Glucose [Mass/Vol] 126 mg/dL High 70 - 100 mg/dL [facility] Glucose [Mass/Vol] 77 mg/dL 70 - 100 mg/dL [facility] Troponin I.cardiac [Mass/Vol] 0.029 ng/mL NINF - 0.034 ng/mL [facility] Troponin I.cardiac [Mass/Vol] 0.029 ng/mL NINF - 0.034 ng/mL [facility] Glucose [Mass/Vol] 88 mg/dL 70 - 100 mg/dL [facility] Glucose [Mass/Vol] 57 mg/dL Low 70 - 100 mg/dL [facility] Glucose [Mass/Vol] 239 mg/dL High 70 - 100 mg/dL [facility] Glucose [Mass/Vol] 88 mg/dL 70 - 100 mg/dL [facility] Troponin I.cardiac [Mass/Vol] 0.028 ng/mL NINF - 0.034 ng/mL [facility] Laboratory - Chemistry and C hemistry - challengeOrdered By: Christiano Weinberg on 03-02-2024 Base excess Calc (BldV) [Moles/Vol] -0.1000 mmol/L -3.0 - 3.0 mmol/L [facility] CO2 (BldV) [Partial pressure] 36 mm[Hg] Low [facility] CO2 [Moles/Vol] 24.8 mmol/L 24.0 - 28.0 mmol/L [facility] HCO3 (Bld) [Moles/Vol] 23.7 mmol/L 23.0 - 27.0 mmol/L [facility] Oxygen (BldV) [Partial pressure] 45.7 mm[Hg] mm Hg [facility] pH (BldV) 7.437 [pH] High 7.330 - 7.430 [facility] Laboratory - Hematology and Cell countsOrdered By: Christiano Weinberg on 03-02-2024 Hemoglobin (Bld) [Mass/Vol] 12.1 g/dL Screen only [facility] Natriuretic peptide B [Mass/ Vol]on 03-02-2024 Interpretation and review of laboratory results Abnormal [facility] Natriuretic peptide B (Bld) [Mass/Vol] 30218 pg/mL High NINF - 125 pg/mL [facility] [employer] [facility] No Panel Informationon 03-02 Interpretation and review of laboratory results Abnormal [facility] Performed by: [facility] [employer] [facility], [address] [place] [id number] CLIA ID: [id number] [facility] [employer] [facility] Interpretation and review of laboratory results Abnormal [facility] Performed by: [facility] [employer] [facility], [address] [place] [id number] CLIA ID: [id number] [facility] [employer] [facility] Interpretation and review of laboratory results Normal [facility] Performed by: [facility], [address] [place] [address] CLIA ID: [id number] [facility] [employer] [facility] Interpretation and review of laboratory results Normal [facility] Performed by: [facility], [address] [place] [address] CLIA ID: [id number] [facility] [employer] [facility] Interpretation and review of laboratory results Abnormal [facility] Performed by: [facility] [employer] [facility], [address] [place] [id number] CLIA ID: [id number] [facility] [employer] [facility] Interpretation and review of laboratory results Abnormal [facility] Performed by: [facility] [employer], [address] [place] [address] CLIA ID: [id number] [facility] [employer] [facility] P [place] 65 degrees [facility] MS Interval 129 ms [facility] QRS [place] 3 degrees [facility] QRSD Interval 91 ms [facility] QT Interval 384 ms [facility] QTC Interval 464 ms [facility] T Wave [place] 58 degrees [facility] Sinus rhythm Minimal ST elevation, anterior leads Normal axis Electronically Signed On 03-02-2024 07:17:20 EST by Marcus Sutherland DO - 03/02/2024 IMPRESSION: Sinus rhythm Minimal ST elevation, anterior leads Normal axis Electronically Signed On 03-02-2024 07:17:20 EST [facility] [place] 58 degrees [facility] MS Interval 123 ms [facility] QRS [place] 0 degrees [facility] QRSD Interval 96 ms [facility] QT Interval 404 ms [facility] QTC Interval 483 ms [facility] T Wave [place] 51 degrees [facility] Sinus rhythm Probable left atrial enlargement Normal axis Electronically Signed On 03-02-2024 07:16:24 EST by Marcus Sutherland DO - 03/02/2024 IMPRESSION: Sinus rhythm Probable left atrial enlargement Normal axis Electronically Signed On 03-02-2024 07:16:24 EST by Marcus [facility] Interpretation and review of laboratory results Normal [facility] Performed by: [facility], [address] [place] [address] CLIA ID: [id number] [facility] Interpretation and review of laboratory results Abnormal [facility] No Panel InformationOrdered By: Christiano Weinberg on 03-02-2024 Source Of Oxygen 2L [facility] Assessment of oxygenation is best done with an arterial blood gas determination. Reference ranges for pO2, bicarbonate, and base excess are for mixed venous blood. Specimens drawn from a peripheral vein will often have higher values. [facility] Troponin I.cardiac [Mass/Vol ]on 03-02-2024 Interpretation and review of laboratory results Normal [facility] Patients with high levels of Biotin oral intake (ie >5 mg/day) may have falsely decreased Troponin levels. [facility] Interpretation and review of laboratory results Normal [facility] Patients with high levels of Biotin oral intake (ie >5 mg/day) may have falsely decreased Troponin levels. [facility] Interpretation and review of laboratory results Normal [facility] Patients with high levels of Biotin oral intake (ie >5 mg/day) may have falsely decreased Troponin levels. [facility] Vital signson 03-02-2024 Heart rate 88 /min bpm [facility] Heart rate 86 /min bpm [facility] Vital signsOrdered By: Christianoemery SolLenard on 03-02-2024 Oxygen saturation in Venous blood 73.5 % [facility] XR Chest Single viewon 03-02 1. Worsening bibasil ar infiltrates and effusions. 2. Prominence of the central pulmonary vasculature consistent with moderate to severe congestive heart failure/fluid overload. Report Dictated on Electronically Signed By: Honorio Henson MD Electronically Signed Date/Time: 03/02/2024 4:43 AM EST [facility] Patient Name: APOORVA GONZALEZ [...] of the interstitium and central pulmonary vasculature. [facility] Honorio Henson MD - 03/02/2024 [...] Electronically Signed Date/Time: 03/02/2024 4:43 AM EST [facility] [employer] Radiology Study observation (narrative) [facility] [employer] XR Chest Single viewOrdered By: Honorio Henson on 03-02-2024 [facility] [employer] Work Phone: CBC W Auto Differential pane l (Bld)Ordered By: Andre Ervin on 02-20-2024 Basophils (Bld) [#/Vol] 0.1 10*3/uL 0.0 - 0.2 10*3/uL [facility] [employer] Basophils/100 WBC (Bld) 1.1 % 0.0 - 2.0 % [facility] [employer] Eosinophils (Bld) [#/Vol] 0.5 10*3/uL 0.0 - 0.5 10*3/uL [facility] [employer] Eosinophils/100 WBC (Bld) 4.6 % 0.0 - 6.0 % [facility] [employer] Erythrocyte distribution width (RBC) [Ratio] 17.5 % High 11.5 - 15.0 % [facility] [employer] Hematocrit (Bld) [Volume fraction] 27.4 % Low 35.0 - 47.0 % [facility] [employer] Hemoglobin (Bld) [Mass/Vol] 8.4 g/dL Low 11.7 - 16.0 g/dL [facility] [employer] Immature granulocytes (Bld) [#/Vol] 0.1 10*3/uL High NINF - 0.1 10*3/uL [facility] [employer] Immature granulocytes/100 WBC (Bld) 0.4 % 0.0 - 2.0 % [facility] [employer] Interpretation and review of laboratory results Abnormal [facility] [employer] Lymphocytes (Bld) [#/Vol] 2.5 10*3/uL 1.0 - 4.3 10*3/uL [facility] [employer] Lymphocytes/100 WBC (Bld) 22.7 % 15.0 - 45.0 % [facility] [employer] MCH (RBC) [Entitic mass] 30.8 pg 26.0 - 34.0 pg [facility] [employer] MCHC (RBC) [Mass/Vol] 30.7 % 30.5 - 36.0 % [facility] [employer] MCV (RBC) [Entitic vol] 100.4 fL High 77.0 - 99.0 fL [facility] [employer] Monocytes (Bld) [#/Vol] 0.9 10*3/uL 0.0 - 0.9 10*3/uL [facility] Monocytes/100 WBC (Bld) 8 % 5.0 - 13.0 % [facility] Neutrophils (Bld) [#/Vol] 7.1 10*3/uL 1.8 - 7.5 10*3/uL [facility] Neutrophils/100 WBC (Bld) 63.2 % 38.0 - 82.0 % [facility] Nucleated RBC/100 WBC (Bld) [Ratio] 0 % [facility] Platelet mean volume (Bld) [Entitic vol] 10.1 fL 9.0 - 12.7 fL [facility] Platelets (Bld) [#/Vol] 405 10*3/uL 140 - 440 10*3/uL [facility] RBC (Bld) [#/Vol] 2.73 10*6/uL Low 3.80 - 5.2 0 10*6/uL [facility] WBC (Bld) [#/Vol] 11.2 10*3/uL High 3.6 - 10.7 10*3/uL [facility] Comprehensive metabolic 1998 panelOrdered By: Gracie Wooten on 02-20-2024 Albumin [Mass/Vol] 3.4 g/dL Low 3.5 - 5.0 g/dL [facility] ALP [Catalytic activity/Vol] 136 U/L High 38 - 126 U/L [facility] ALT [Catalytic activity/Vol] 35 U/L High 0 - 34 U/L [facility] Anion gap [Moles/Vol] 11 mmol/L 3 - 13 mmol/L [facility] AST [Catalytic activity/Vol] 41 U/L 15 - 46 U/L [facility] Bilirubin [Mass/Vol] 0.7 mg/dL 0.2 - 1 .3 mg/dL [facility] Calcium [Mass/Vol] 8.2 mg/dL Low 8.4 - 10. 4 mg/dL [facility] Chloride [Moles/Vol] 97 mmol/L Low 98 - 10 7 mmol/L [facility] CO2 [Moles/Vol] 27 mmol/L 22 - 30 mmol/L [facility] Creatinine [Mass/Vol] 4.37 mg/dL High 0.52 - 1.04 mg/dL [facility] GFR/1.73 sq M.predicted (S/P/Bld) [Vol rate/Area] 10.2 mL/min Low - PINF [facility] Comment on above: Calculation based on the Chronic Kidney Disease Epidemiology Collaboration (CKD-EPI) equation refit without adjustment for race Glucose [Mass/Vol] 91 mg/dL 70 - 100 mg/dL [facility] Interpretation and review of laboratory results Abnormal [facility] Potassium [Moles/Vol] 3.8 mmol/L 3.5 - 5.1 mmol/L [facility] Protein [Mass/Vol] 6.2 g/dL Low 6.3 - 8.2 g/dL [facility] Sodium [Moles/Vol] 135 mmol/L 135 - 145 mmol/L [facility] Urea nitrogen [Mass/Vol] 29 mg/dL High 7 - 17 mg/dL [facility] Laboratory - Chemistry and C hemistry - challengeon 02-20-2024 Procalcitonin [Mass/Vol] 0.56 ng/mL High 0.00 - 0.09 ng/mL [facility] Procalcitonin [Mass/Vol]on 04-21-2023 Interpretation and review of laboratory results Abnormal [facility] PCT <0.50 = Low risk of severe sepsis and/or septic shock. PCT >2.00 = High risk of severe sepsis and/or septic shock. [facility] CBC W Auto Differential pane l (Bld)Ordered By: Beatriz Morales on 02-19-2024 Basophils (Bld) [#/Vol] 0.2 10*3/uL 0.0 - 0.2 10*3/uL [facility] Basophils/100 WBC (Bld) 1.3 % 0.0 - 2.0 % [facility] Eosinophils (Bld) [#/Vol] 0.6 10*3/uL High 0.0 - 0.5 10*3/uL [facility] Eosinophils/100 WBC (Bld) 4.9 % 0.0 - 6.0 % [facility] Erythrocyte distribution width (RBC) [Ratio] 18 % High 11.5 - 15.0 % [facility] Hematocrit (Bld) [Volume fraction] 30.6 % Low 35.0 - 47.0 % [facility] Hemoglobin (Bld) [Mass/Vol] 9.2 g/dL Low 11.7 - 16.0 g/dL [facility] Immature granulocytes (Bld) [#/Vol] 0.1 10*3/uL High NINF - 0.1 10*3/uL [facility] Immature granulocytes/100 WBC (Bld) 0.4 % 0.0 - 2.0 % [facility] Interpretation and review of laboratory results Abnormal [facility] Lymphocytes (Bld) [#/Vol] 2 10*3/uL 1.0 - 4.3 10*3/uL [facility] Lymphocytes/100 WBC (Bld) 17.1 % 15.0 - 45.0 % [facility] MCH (RBC) [Entitic mass] 30.7 pg 26.0 - 34.0 pg [facility] MCHC (RBC) [Mass/Vol] 30.1 % Low 30.5 - 36.0 % [facility] MCV (RBC) [Entitic vol] 102 fL High 77.0 - 99.0 fL [facility] Monocytes (Bld) [#/Vol] 0.7 10*3/uL 0.0 - 0.9 10*3/uL [facility] Monocytes/100 WBC (Bld) 6.3 % 5.0 - 13.0 % [facility] Neutrophils (Bld) [#/Vol] 8 10*3/uL High 1.8 - 7.5 10*3/uL [facility] Neutrophils/100 WBC (Bld) 70 % 38.0 - 82.0 % [facility] Nucleated RBC/100 WBC (Bld) [Ratio] 0.2 % [facility] Platelet mean volume (Bld) [Entitic vol] 10.4 fL 9.0 - 12.7 fL [facility] Platelets (Bld) [#/Vol] 472 10*3/uL High 140 - 440 10*3/uL [facility] RBC (Bld) [#/Vol] 3 10*6/uL Low 3.80 - 5.2 0 10*6/uL [facility] WBC (Bld) [#/Vol] 11.5 10*3/uL High 3.6 - 10.7 10*3/uL [facility] Comprehensive metabolic 1998 panelOrdered By: Cathy Salinas on 02-19-2024 Albumin [Mass/Vol] 3.7 g/dL 3.5 - 5.0 g/dL [facility] ALP [Catalytic activity/Vol] 122 U/L 38 - 126 U/L [facility] ALT [Catalytic activity/Vol] 42 U/L High 0 - 34 U/L [facility] Anion gap [Moles/Vol] 11 mmol/L 3 - 13 mmol/L [facility] AST [Catalytic activity/Vol] 76 U/L High 15 - 46 U/L [facility] Bilirubin [Mass/Vol] 1.1 mg/dL 0.2 - 1 .3 mg/dL [facility] Calcium [Mass/Vol] 8.5 mg/dL 8.4 - 10. 4 mg/dL [facility] Chloride [Moles/Vol] 95 mmol/L Low 98 - 10 7 mmol/L [facility] CO2 [Moles/Vol] 28 mmol/L 22 - 30 mmol/L [facility] Creatinine [Mass/Vol] 3.12 mg/dL High 0.52 - 1.04 mg/dL [facility] GFR/1.73 sq M.predicted (S/P/Bld) [Vol rate/Area] 15.2 mL/min Low - PINF [facility] Comment on above: Calculation based on the Chronic Kidney Disease Epidemiology Collaboration (CKD-EPI) equation refit without adjustment for race Glucose [Mass/Vol] 104 mg/dL High 70 - 100 mg/dL [facility] Interpretation and review of laboratory results Abnormal [facility] Potassium [Moles/Vol] 4.1 mmol/L 3.5 - 5.1 mmol/L [facility] Protein [Mass/Vol] 6.9 g/dL 6.3 - 8.2 g/dL [facility] Sodium [Moles/Vol] 134 mmol/L Low 135 - 145 mmol/L [facility] Urea nitrogen [Mass/Vol] 18 mg/dL High 7 - 17 mg/dL [facility] AST, Potassium, Alkaline Phosphatase-Slightly Hemolyzed. Interpret with caution. [facility] Comprehensive metabolic 1998 panelon 02-19-2024 Albumin [Mass/Vol] 4 g/dL 3.5 - 5.0 g/dL [facility] ALP [Catalytic activity/Vol] 131 U/L High 38 - 126 U/L [facility] ALT [Catalytic activity/Vol] 50 U/L High 0 - 34 U/L [facility] Anion gap [Moles/Vol] 18 mmol/L High 3 - 13 mmol/L [facility] AST [Catalytic activity/Vol] 105 U/L High 15 - 46 U/L [facility] Bilirubin [Mass/Vol] 1.1 mg/dL 0.2 - 1 .3 mg/dL [facility] Calcium [Mass/Vol] 8.2 mg/dL Low 8.4 - 10. 4 mg/dL [facility] Chloride [Moles/Vol] 95 mmol/L Low 98 - 10 7 mmol/L [facility] CO2 [Moles/Vol] 21 mmol/L Low 22 - 30 mmol/L [facility] Creatinine [Mass/Vol] 6.67 mg/dL High 0.52 - 1.04 mg/dL [facility] GFR/1.73 sq M.predicted (S/P/Bld) [Vol rate/Area] 6.1 mL/min Low - PINF [facility] Comment on above: Calculation based on the Chronic Kidney Disease Epidemiology Collaboration (CKD-EPI) equation refit without adjustment for race Glucose [Mass/Vol] 193 mg/dL High 70 - 100 mg/dL [facility] Interpretation and review of laboratory results Abnormal [facility] Potassium [Moles/Vol] 5.2 mmol/L High 3.5 - 5.1 mmol/L [facility] Protein [Mass/Vol] 7.3 g/dL 6.3 - 8.2 g/dL [facility] Sodium [Moles/Vol] 134 mmol/L Low 135 - 145 mmol/L [facility] Urea nitrogen [Mass/Vol] 44 mg/dL High 7 - 17 mg/dL [facility] Slightly Hemolyzed. Interpret Potassium, Total Protein, Albumin, Alkaline Phosphatase, and AST with caution. [facility] Laboratory - Chemistry and C hemistry - challengeon 02-19-2024 Troponin I.cardiac [Mass/Vol] 0.033 ng/mL [facility] - 0.034 ng/mL [facility] Troponin I.cardiac [Mass/Vol] 0.042 ng/mL High [facility] - 0.034 ng/mL [facility] Procalcitonin [Mass/Vol] 0.48 ng/mL High 0.00 - 0.09 ng/mL [facility] Lactate [Moles/Vol] 1.3 mmol/L 0.7 - 2. 0 mmol/L [facility] Troponin I.cardiac [Mass/Vol] 0.034 ng/mL High NINF - 0.034 ng/mL [facility] Base excess Calc (BldV) [Moles/Vol] 4.4 mmol/L High -3.0 - 3.0 mmol/L [facility] CO2 (BldV) [Partial pressure] 44.1 mm[Hg] [facility] CO2 [Moles/Vol] 30.4 mmol/L High 24.0 - 28.0 mmol/L [facility] HCO3 (Bld) [Moles/Vol] 29.1 mmol/L High 23.0 - 27.0 mmol/L [facility] Oxygen (BldV) [Partial pressure] 41.7 mm[Hg] mm Hg [facility] pH (BldV) 7.437 [pH] High 7.330 - 7.430 [facility] Troponin I.cardiac [Mass/Vol] 0.027 ng/mL NINF - 0.034 ng/mL [facility] Lactate [Moles/Vol] 3.3 mmol/L High 0.7 - 2. 0 mmol/L [facility] Laboratory - Chemistry and C hemistry - challengeOrdered By: Christiano Weinberg on 02-19-2024 Base excess Calc (BldV) [Moles/Vol] 3.3 mmol/L High -3.0 - 3.0 mmol/L [facility] CO2 (BldV) [Partial pressure] 62.2 mm[Hg] High [facility] CO2 [Moles/Vol] 32.3 mmol/L High 24.0 - 28.0 mmol/L [facility] HCO3 (Bld) [Moles/Vol] 30.4 mmol/L High 23.0 - 27.0 mmol/L [facility] Oxygen (BldV) [Partial pressure] 19.6 mm[Hg] mm Hg [facility] pH (BldV) 7.307 [pH] Low 7.330 - 7.430 [facility] Laboratory - Hematology and Cell countson 02-19-2024 Hemoglobin (Bld) [Mass/Vol] 8.8 g/dL Screen only [facility] Laboratory - Hematology and Cell countsOrdered By: Christiano Weinberg on 02-19-2024 Hemoglobin (Bld) [Mass/Vol] 8.7 g/dL Screen only [facility] Natriuretic peptide B [Mass/ Vol]Ordered By: Handy Jarvis on 02-19-2024 Interpretation and review of laboratory results Abnormal [facility] Natriuretic peptide B (Bld) [Mass/Vol] 98501 pg/mL High NINF - 125 pg/mL [facility] No Panel InformationOrdered By: Amol Perdue on 02-19-2024 Interpretation and review of laboratory results Normal [facility] Legionella pneumophila Ag Not detected Not Detected [facility] Streptococcus pneumoniae Ag Not detected Not Detected [facility] Methodology: Lateral flow enzyme immunoassay This assay is approved for detection of antigens to Streptococcus pneumoniae and Legionella pneumophila serogroup 1; however, other L. pneumophila serogroups may also be detected. [facility] No Panel Informationon 02-18 Interpretation and review of laboratory results Normal [facility] Interpretation and review of laboratory results Abnormal [facility] Source Of Oxygen [facility] Comment on above: 6L Assessment of oxygenation is best done with an arterial blood gas determination. Reference ranges for pO2, bicarbonate, and base excess are for mixed venous blood. Specimens drawn from a peripheral vein will often have higher values. [facility] Interpretation and review of laboratory results Abnormal [facility] P [place] 67 degrees [facility] MS Interval 133 ms [facility] QRS [place] 3 degrees [facility] QRSD Interval 82 ms [facility] QT Interval 397 ms [facility] QTC Interval 465 ms [facility] T Wave [place] 48 degrees [facility] Sinus rhythm Probable left ventricular hypertrophy Anterior Q waves Electronically Signed On 02-19-2024 04:31:07 EST by Brown Barreto DO - 02/19/2024 IMPRESSION: Sinus rhythm Probable left ventricular hypertrophy Anterior Q waves Electronically Signed On 02-19-2024 04:31:07 EST by Brown Kaur [facility] No Panel InformationOrdered By: Christiano Weinberg on 02-19-2024 Interpretation and review of laboratory results Abnormal [facility] Source Of Oxygen [facility] Comment on above: 100% Assessment of oxygenation is best done with an arterial blood gas determination. Reference ranges for pO2, bicarbonate, and base excess are for mixed venous blood. Specimens drawn from a peripheral vein will often have higher values. [facility] Procalcitonin [Mass/Vol]on 04-20-2023 Interpretation and review of laboratory results Abnormal [facility] PCT <0.50 = Low risk of severe sepsis and/or septic shock. PCT >2.00 = High risk of severe sepsis and/or septic shock. [facility] Respiratory pathogens DNA an d RNA panel CHIQUIS+non-probe (Nph)on 02-19-2024 Adenovirus Not detected Not Detected [facility] B. pertussis DNA CHIQUIS+probe Ql (Unsp spec) Not detected Not Detected [facility] Bordetella parapertussis Not detected Not Detected [facility] Chlamydia pneumoniae Not detected Not Detected [facility] Coronavirus 229E Not detected Not Detected [facility] Coronavirus HKU1 Not detected Not Detected [facility] Coronavirus NL63 Not detected Not Detected [facility] Coronavirus OC43 Not detected Not Detected [facility] FLUAV RNA CHIQUIS+non-probe Ql (Nph) Not detected Not Detected [facility] FLUBV RNA CHIQUIS+non-probe Ql (Nph) Not detected Not Detected [facility] Human Metapneumovirus Not detected Not Detected [facility] Human Rhinovirus/Enterovirus Not detected Not Detected [facility] Interpretation and review of laboratory results Normal [facility] Mycoplasma pneumoniae Not detected Not Detected [facility] Parainfluenza 1 Not detected Not Detected [facility] Parainfluenza 2 Not detected Not Detected [facility] Parainfluenza 3 Not detected Not Detected [facility] Parainfluenza 4 Not detected Not Detected [facility] Respiratory Syncytial Virus Not detected Not Detected [facility] SARS-CoV-2 (COVID-19) RNA CHIQUIS+non-probe Ql (Nph) Not detected Not Detected [facility] Methodology: Multipl ex PCR [facility] Troponin I.cardiac [Mass/Vol ]on 02-19-2024 Interpretation and review of laboratory results Normal [facility] Patients with high levels of Biotin oral intake (ie >5 mg/day) may have falsely decreased Troponin levels. [facility] Interpretation and review of laboratory results Abnormal [facility] Patients with high levels of Biotin oral intake (ie >5 mg/day) may have falsely decreased Troponin levels. [facility] Interpretation and review of laboratory results Abnormal [facility] Patients with high levels of Biotin oral intake (ie >5 mg/day) may have falsely decreased Troponin levels. [facility] Interpretation and review of laboratory results Normal [facility] Moderately Hemolyzed . Interpret Troponin with caution. Patients with high levels of Biotin oral intake (ie >5 mg/day) may have falsely decreased Troponin levels. [facility] Vital signson 02-19-2024 Oxygen saturation in Venous blood 71.7 % [facility] Heart rate 82 /min bpm [facility] Vital signsOrdered By: Christiano Weinberg on 02-19-2024 Oxygen saturation in Venous blood 19.6 % [facility] XR Chest Single viewon 02-18 Extensive patchy bilateral pulmonary consolidation, which may be due to alveolar edema versus pneumonia. Moderate bilateral pleural effusions. Report Dictated on Electronically Signed By: Ana Ashton MD Electronically Signed Date/Time: 02/19/2024 4:37 AM EST [facility] Patient Name: APOORVA GONZALEZ [...] No pneumothorax is identified. OSSEOUS STRUCTURES: Unremarkable. [facility] Ana Ashton M D - 02/19/2024 [...] Electronically Signed Date/Time: 02/19/2024 4:37 AM EST [facility] Radiology Study observation (narrative) [facility] XR Chest Single viewOrdered By: Ana Ashton on 02-19-2024 [facility] Work Phone: Basic metabolic 1998 panelon 02-12-2024 Anion gap [Moles/Vol] 12 mmol/L 3 - 13 mmol/L [facility] Calcium [Mass/Vol] 8.7 mg/dL 8.4 - 10. 4 mg/dL [facility] Chloride [Moles/Vol] 90 mmol/L Low 98 - 10 7 mmol/L [facility] CO2 [Moles/Vol] 32 mmol/L High 22 - 30 mmol/L [facility] Creatinine [Mass/Vol] 2.71 mg/dL High 0.52 - 1.04 mg/dL [facility] GFR/1.73 sq M.predicted (S/P/Bld) [Vol rate/Area] 18 mL/min Low - PINF [facility] Comment on above: Calculation based on the Chronic Kidney Disease Epidemiology Collaboration (CKD-EPI) equation refit without adjustment for race Glucose [Mass/Vol] 92 mg/dL 70 - 100 mg/dL [facility] Interpretation and review of laboratory results Abnormal [facility] Potassium [Moles/Vol] 4 mmol/L 3.5 - 5.1 mmol/L [facility] Sodium [Moles/Vol] 134 mmol/L Low 135 - 145 mmol/L [facility] Urea nitrogen [Mass/Vol] 11 mg/dL 7 - 17 mg/dL [facility] Slightly Hemolyzed. Interpret K+ with caution. [facility] CBC panel Auto (Bld)on 02-11 Erythrocyte distribution width (RBC) [Ratio] 16.3 % High 11.5 - 15.0 % [facility] Hematocrit (Bld) [Volume fraction] 23.7 % Low 35.0 - 47.0 % [facility] Hemoglobin (Bld) [Mass/Vol] 7.6 g/dL Low 11.7 - 16.0 g/dL [facility] Interpretation and review of laboratory results Abnormal [facility] MCH (RBC) [Entitic mass] 30.8 pg 26.0 - 34.0 pg [facility] MCHC (RBC) [Mass/Vol] 32.1 % 30.5 - 36.0 % [facility] MCV (RBC) [Entitic vol] 96 fL 77.0 - 99.0 fL [facility] Platelet mean volume (Bld) [Entitic vol] 11 fL 9.0 - 12.7 fL [facility] Platelets (Bld) [#/Vol] 385 10*3/uL 140 - 440 10*3/uL [facility] RBC (Bld) [#/Vol] 2.47 10*6/uL Low 3.80 - 5.2 0 10*6/uL [facility] WBC (Bld) [#/Vol] 11.5 10*3/uL High 3.6 - 10.7 10*3/uL [facility] Laboratory - Chemistry and C hemistry - challengeon 02-12-2024 Troponin I.cardiac [Mass/Vol] 0.03 ng/mL NINF - 0.034 ng/mL [facility] Troponin I.cardiac [Mass/Vol ]on 02-12-2024 Interpretation and review of laboratory results Normal [facility] Slightly Hemolyzed. Interpret Troponin I with caution. Patients with high levels of Biotin oral intake (ie >5 mg/day) may have falsely decreased Troponin levels. [facility] Basic metabolic 1998 panelon 01-25-2024 Anion gap [Moles/Vol] 17 mmol/L High 3 - 13 mmol/L [facility] Calcium [Mass/Vol] 8.3 mg/dL Low 8.4 - 10. 4 mg/dL [facility] Chloride [Moles/Vol] 101 mmol/L 98 - 10 7 mmol/L [facility] CO2 [Moles/Vol] 18 mmol/L Low 22 - 30 mmol/L [facility] Creatinine [Mass/Vol] 8.47 mg/dL High 0.52 - 1.04 mg/dL [facility] GFR/1.73 sq M.predicted (S/P/Bld) [Vol rate/Area] 4.6 mL/min Low - PINF [facility] Comment on above: Calculation based on the Chronic Kidney Disease Epidemiology Collaboration (CKD-EPI) equation refit without adjustment for race Glucose [Mass/Vol] 82 mg/dL 70 - 100 mg/dL [facility] Interpretation and review of laboratory results Abnormal [facility] Potassium [Moles/Vol] 4.6 mmol/L 3.5 - 5.1 mmol/L [facility] Sodium [Moles/Vol] 136 mmol/L 135 - 145 mmol/L [facility] Urea nitrogen [Mass/Vol] 36 mg/dL High 7 - 17 mg/dL [facility] CBC W Auto Differential pane l (Bld)on 01-25-2024 Basophils (Bld) [#/Vol] 0.1 10*3/uL 0.0 - 0.2 10*3/uL [facility] Basophils/100 WBC (Bld) 0.9 % 0.0 - 2.0 % [facility] Eosinophils (Bld) [#/Vol] 0.3 10*3/uL 0.0 - 0.5 10*3/uL [facility] Eosinophils/100 WBC (Bld) 1.7 % 0.0 - 6.0 % [facility] Erythrocyte distribution width (RBC) [Ratio] 15.7 % High 11.5 - 15.0 % [facility] Hematocrit (Bld) [Volume fraction] 26.4 % Low 35.0 - 47.0 % [facility] Hemoglobin (Bld) [Mass/Vol] 8.6 g/dL Low 11.7 - 16.0 g/dL [facility] Immature granulocytes (Bld) [#/Vol] 0.1 10*3/uL High NINF - 0.1 10*3/uL [facility] Immature granulocytes/100 WBC (Bld) 0.7 % 0.0 - 2.0 % [facility] Interpretation and review of laboratory results Abnormal [facility] Lymphocytes (Bld) [#/Vol] 2.3 10*3/uL 1.0 - 4.3 10*3/uL [facility] Lymphocytes/100 WBC (Bld) 15.3 % 15.0 - 45.0 % [facility] MCH (RBC) [Entitic mass] 30.3 pg 26.0 - 34.0 pg [facility] MCHC (RBC) [Mass/Vol] 32.6 % 30.5 - 36.0 % [facility] MCV (RBC) [Entitic vol] 93 fL 77.0 - 99.0 fL [facility] Monocytes (Bld) [#/Vol] 0.8 10*3/uL 0.0 - 0.9 10*3/uL [facility] Monocytes/100 WBC (Bld) 5 % 5.0 - 13.0 % [facility] Neutrophils (Bld) [#/Vol] 11.6 10*3/uL High 1.8 - 7.5 10*3/uL [facility] Neutrophils/100 WBC (Bld) 76.4 % 38.0 - 82.0 % [facility] Nucleated RBC/100 WBC (Bld) [Ratio] 0 % [facility] Platelet mean volume (Bld) [Entitic vol] 9.8 fL 9.0 - 12.7 fL [facility] Platelets (Bld) [#/Vol] 400 10*3/uL 140 - 440 10*3/uL [facility] RBC (Bld) [#/Vol] 2.84 10*6/uL Low 3.80 - 5.2 0 10*6/uL [facility] WBC (Bld) [#/Vol] 15.1 10*3/uL High 3.6 - 10.7 10*3/uL [facility] Laboratory - Chemistry and C hemistry - challengeon 01-25-2024 Magnesium [Mass/Vol] 2.2 mg/dL 1.6 - 2 .3 mg/dL [facility] Magnesium [Mass/Vol]on 01-24 Interpretation and review of laboratory results Normal [facility] No Panel Informationon 01-24 [facility] Phosphate [Moles/Vol]on 01-04 Interpretation and review of laboratory results Abnormal [facility] Phosphate [Mass/Vol] 5.7 mg/dL High 2.5 - 4 .5 mg/dL [facility] Basic metabolic 1998 panelOr dered By: Mak Hobbs on 01-24-2024 Anion gap [Moles/Vol] 11 mmol/L 3 - 13 mmol/L [facility] Calcium [Mass/Vol] 7.7 mg/dL Low 8.4 - 10. 4 mg/dL [facility] Chloride [Moles/Vol] 103 mmol/L 98 - 10 7 mmol/L [facility] CO2 [Moles/Vol] 23 mmol/L 22 - 30 mmol/L [facility] Creatinine [Mass/Vol] 6.63 mg/dL High 0.52 - 1.04 mg/dL [facility] GFR/1.73 sq M.predicted (S/P/Bld) [Vol rate/Area] 6.2 mL/min Low - PINF [facility] Comment on above: Calculation based on the Chronic Kidney Disease Epidemiology Collaboration (CKD-EPI) equation refit without adjustment for race Glucose [Mass/Vol] 116 mg/dL High 70 - 100 mg/dL [facility] Interpretation and review of laboratory results Abnormal [facility] Potassium [Moles/Vol] 4 mmol/L 3.5 - 5.1 mmol/L [facility] Sodium [Moles/Vol] 136 mmol/L 135 - 145 mmol/L [facility] Urea nitrogen [Mass/Vol] 30 mg/dL High 7 - 17 mg/dL [facility] Blood type and Crossmatch pa kojo (Bld)on 01-24-2024 ABO group Nom (Bld) O [facility] Blood group antibody screen GEL Ql Negative [facility] D Ag Ql (RBC) Positive [facility] CBC W Auto Differential pane l (Bld)on 01-24-2024 Basophils (Bld) [#/Vol] 0.1 10*3/uL 0.0 - 0.2 10*3/uL [facility] Basophils/100 WBC (Bld) 0.7 % 0.0 - 2.0 % [facility] Eosinophils (Bld) [#/Vol] 0.2 10*3/uL 0.0 - 0.5 10*3/uL [facility] Eosinophils/100 WBC (Bld) 1.7 % 0.0 - 6.0 % [facility] Erythrocyte distribution width (RBC) [Ratio] 16.3 % High 11.5 - 15.0 % [facility] Hematocrit (Bld) [Volume fraction] 19.8 % Low 35.0 - 47.0 % [facility] Hemoglobin (Bld) [Mass/Vol] 6.4 g/dL Critically low 11.7 - 16.0 g/dL [facility] Immature granulocytes (Bld) [#/Vol] 0.1 10*3/uL High NINF - 0.1 10*3/uL [facility] Immature granulocytes/100 WBC (Bld) 0.8 % 0.0 - 2.0 % [facility] Interpretation and review of laboratory results Abnormal [facility] Lymphocytes (Bld) [#/Vol] 1.5 10*3/uL 1.0 - 4.3 10*3/uL [facility] Lymphocytes/100 WBC (Bld) 10.5 % Low 15.0 - 45.0 % [facility] MCH (RBC) [Entitic mass] 29.9 pg 26.0 - 34.0 pg [facility] MCHC (RBC) [Mass/Vol] 32.3 % 30.5 - 36.0 % [facility] MCV (RBC) [Entitic vol] 92.5 fL 77.0 - 99.0 fL [facility] Monocytes (Bld) [#/Vol] 0.6 10*3/uL 0.0 - 0.9 10*3/uL [facility] Monocytes/100 WBC (Bld) 4.4 % Low 5.0 - 13.0 % [facility] Neutrophils (Bld) [#/Vol] 11.6 10*3/uL High 1.8 - 7.5 10*3/uL [facility] Neutrophils/100 WBC (Bld) 81.9 % 38.0 - 82.0 % [facility] Nucleated RBC/100 WBC (Bld) [Ratio] 0 % [facility] Platelet mean volume (Bld) [Entitic vol] 10 fL 9.0 - 12.7 fL [facility] Platelets (Bld) [#/Vol] 327 10*3/uL 140 - 440 10*3/uL [facility] RBC (Bld) [#/Vol] 2.14 10*6/uL Low 3.80 - 5.2 0 10*6/uL [facility] WBC (Bld) [#/Vol] 14.2 10*3/uL High 3.6 - 10.7 10*3/uL [facility] Guidance for embolization of Vesselson [...] a permanent image was stored. A 5 British short sheath was placed. Vessel accessed: Left [...] Electronically Signed Date/Time: 01/24/2024 5:35 PM EDT [facility] Patient Name: APOORVA GONZALEZ [...] the splenic flexure. Complications: No immediate complications. [facility] Jovan Glynn MD - [...] a permanent image was stored. A 5 British short sheath was placed. Vessel accessed: Left [...] Electronically Signed Date/Time: 01/24/2024 5:35 PM EDT [facility] Radiology Study observation (narrative) [facility] Guidance for embolization of VesselsOrdered By: Jovan Glynn on 01-24-2024 [facility] Work Phone: Hemoglobin (Bld) [Mass/Vol]o n 01-24-2024 Hematocrit (Bld) [Volume fraction] 23.7 % Low 35.0 - 47.0 % [facility] Interpretation and review of laboratory results Abnormal [facility] Hemoglobin (Bld) [Mass/Vol]O rdered By: Ct Hays on 01-24-2024 Hematocrit (Bld) [Volume fraction] 23 % Low 35.0 - 47.0 % [facility] Interpretation and review of laboratory results Abnormal [facility] Laboratory - Chemistry and C hemistry - challengeon 01-24-2024 Magnesium [Mass/Vol] 2 mg/dL 1.6 - 2 .3 mg/dL [facility] Laboratory - Hematology and Cell countson 01-24-2024 Hemoglobin (Bld) [Mass/Vol] 7.7 g/dL Low 11.7 - 16.0 g/dL [facility] Laboratory - Hematology and Cell countsOrdered By: Ct Hays on 01-24-2024 Hemoglobin (Bld) [Mass/Vol] 7.7 g/dL Low 11.7 - 16.0 g/dL [facility] Magnesium [Mass/Vol]on 01-23 Interpretation and review of laboratory results Normal [facility] Gastrointestinal tract Vi ews for gastrointestinal bleedingon 01-24-2024 Findings consistent with active gastrointestinal hemorrhage, which appears to originate from the colon near the splenic flexure. Report Dictated on Electronically Signed By: Veronica Monsivais MD Electronically Signed Date/Time: 01/24/2024 2:58 PM [facility] Name[facility] APO[facility] 1950 [id number] Exam Date/Time: 01/24/2024 14:46 Procedure: NM GASTROINTESTINAL [...] the liver, spleen, and large intra-abdominal vessels. [facility] Veronica Monsivais MD - 01/24/2024 Patient Name: APOOR[facility]Z [facility] 1950 [id number] Exam Date/Time: 01/24/2024 14:46 Procedure: NM GASTROINTESTINAL [...] Report Dictated on Electronically Signed By: Veronica Monsiavis MD Electronically Signed Date/Time: 01/24/2024 2:58 PM EDT [facility] Radiology Study observation (narrative) [facility] Gastrointestinal tract Vi ews for gastrointestinal bleedingOrdered By: Veronica Monsivais on 01-24-2024 [facility] No Panel Informationon 01-23 Blood Expiration Date [id number] S [facility] Crossmatch interpretation COMP [facility] [employer] Dispense Status Transfused [facility] [employer] Product Blood Type 5100 [facility] PRODUCT CODE [id number] [facility] ABO O [facility] Unit Number [id number] [facility] RH Positive [facility] Unit Volume 300 mL [facility] Phosphate [Moles/Vol]on 01-04 Interpretation and review of laboratory results Abnormal [facility] Phosphate [Mass/Vol] 5 mg/dL High 2.5 - 4 .5 mg/dL [facility] Basic metabolic 1998 panelOr dered By: Gracie Wooten on 01-23-2024 Anion gap [Moles/Vol] 5 mmol/L 3 - 13 mmol/L [facility] Calcium [Mass/Vol] 7.6 mg/dL Low 8.4 - 10. 4 mg/dL [facility] Chloride [Moles/Vol] 101 mmol/L 98 - 10 7 mmol/L [facility] CO2 [Moles/Vol] 30 mmol/L 22 - 30 mmol/L [facility] Creatinine [Mass/Vol] 4.86 mg/dL High 0.52 - 1.04 mg/dL [facility] GFR/1.73 sq M.predicted (S/P/Bld) [Vol rate/Area] 8.9 mL/min Low - PINF [facility] Comment on above: Calculation based on the Chronic Kidney Disease Epidemiology Collaboration (CKD-EPI) equation refit without adjustment for race Glucose [Mass/Vol] 107 mg/dL High 70 - 100 mg/dL [facility] Interpretation and review of laboratory results Abnormal [facility] Potassium [Moles/Vol] 4.4 mmol/L 3.5 - 5.1 mmol/L [facility] Sodium [Moles/Vol] 136 mmol/L 135 - 145 mmol/L [facility] Urea nitrogen [Mass/Vol] 26 mg/dL High 7 - 17 mg/dL [facility] CBC W Auto Differential pane l (Bld)on 01-23-2024 Basophils (Bld) [#/Vol] 0.1 10*3/uL 0.0 - 0.2 10*3/uL [facility] Basophils/100 WBC (Bld) 0.7 % 0.0 - 2.0 % [facility] Eosinophils (Bld) [#/Vol] 0.4 10*3/uL 0.0 - 0.5 10*3/uL [facility] Eosinophils/100 WBC (Bld) 3.1 % 0.0 - 6.0 % [facility] Erythrocyte distribution width (RBC) [Ratio] 16 % High 11.5 - 15.0 % [facility] Hematocrit (Bld) [Volume fraction] 24.7 % Low 35.0 - 47.0 % [facility] Hemoglobin (Bld) [Mass/Vol] 8 g/dL Low 11.7 - 16.0 g/dL [facility] [employer] Immature granulocytes (Bld) [#/Vol] 0.1 10*3/uL High NINF - 0.1 10*3/uL [facility] Immature granulocytes/100 WBC (Bld) 0.7 % 0.0 - 2.0 % [facility] Interpretation and review of laboratory results Abnormal [facility] Lymphocytes (Bld) [#/Vol] 1.6 10*3/uL 1.0 - 4.3 10*3/uL [facility] Lymphocytes/100 WBC (Bld) 11.5 % Low 15.0 - 45.0 % [facility] MCH (RBC) [Entitic mass] 29.6 pg 26.0 - 34.0 pg [facility] MCHC (RBC) [Mass/Vol] 32.4 % 30.5 - 36.0 % [facility] MCV (RBC) [Entitic vol] 91.5 fL 77.0 - 99.0 fL [facility] Monocytes (Bld) [#/Vol] 0.9 10*3/uL 0.0 - 0.9 10*3/uL [facility] Monocytes/100 WBC (Bld) 6.4 % 5.0 - 13.0 % [facility] Neutrophils (Bld) [#/Vol] 10.7 10*3/uL High 1.8 - 7.5 10*3/uL [facility] Neutrophils/100 WBC (Bld) 77.6 % 38.0 - 82.0 % [facility] Nucleated RBC/100 WBC (Bld) [Ratio] 0 % [facility] [employer] Platelet mean volume (Bld) [Entitic vol] 10 fL 9.0 - 12.7 fL [facility] Platelets (Bld) [#/Vol] 325 10*3/uL 140 - 440 10*3/uL [facility] RBC (Bld) [#/Vol] 2.7 10*6/uL Low 3.80 - 5.2 0 10*6/uL [facility] WBC (Bld) [#/Vol] 13.8 10*3/uL High 3.6 - 10.7 10*3/uL [facility] Laboratory - Chemistry and C hemistry - challengeon 01-23-2024 Glucose [Mass/Vol] 87 mg/dL 70 - 100 mg/dL [facility] Magnesium [Mass/Vol] 2.1 mg/dL 1.6 - 2 .3 mg/dL [facility] No Panel Informationon 01-22 Interpretation and review of laboratory results Normal [facility] Performed by: [facility], [address] [place], [place] [id number] CLIA ID: [id number] [facility] Interpretation and review of laboratory results Normal [facility] Phosphate [Moles/Vol]on 01-04 Phosphate [Mass/Vol] 4.3 mg/dL 2.5 - 4 .5 mg/dL [facility] Basic metabolic 1998 panelOr dered By: Christiano Weinberg on 01-22-2024 Anion gap [Moles/Vol] 9 mmol/L 3 - 13 mmol/L [facility] Calcium [Mass/Vol] 6.7 mg/dL Low 8.4 - 10. 4 mg/dL [facility] Chloride [Moles/Vol] 102 mmol/L 98 - 10 7 mmol/L [facility] CO2 [Moles/Vol] 21 mmol/L Low 22 - 30 mmol/L [facility] Creatinine [Mass/Vol] 7.66 mg/dL High 0.52 - 1.04 mg/dL [facility] GFR/1.73 sq M.predicted (S/P/Bld) [Vol rate/Area] 5.2 mL/min Low - PINF [facility] Comment on above: Calculation based on the Chronic Kidney Disease Epidemiology Collaboration (CKD-EPI) equation refit without adjustment for race Glucose [Mass/Vol] 78 mg/dL 70 - 100 mg/dL [facility] Interpretation and review of laboratory results Abnormal [facility] Potassium [Moles/Vol] 4.8 mmol/L 3.5 - 5.1 mmol/L [facility] Sodium [Moles/Vol] 133 mmol/L Low 135 - 145 mmol/L [facility] Urea nitrogen [Mass/Vol] 49 mg/dL High 7 - 17 mg/dL [facility] CBC W Auto Differential pane l (Bld)on 01-22-2024 Basophils (Bld) [#/Vol] 0.1 10*3/uL 0.0 - 0.2 10*3/uL [facility] Basophils/100 WBC (Bld) 0.5 % 0.0 - 2.0 % [facility] Eosinophils (Bld) [#/Vol] 0.5 10*3/uL 0.0 - 0.5 10*3/uL [facility] Eosinophils/100 WBC (Bld) 2.5 % 0.0 - 6.0 % [facility] Erythrocyte distribution width (RBC) [Ratio] 16.8 % High 11.5 - 15.0 % [facility] Hematocrit (Bld) [Volume fraction] 24.3 % Low 35.0 - 47.0 % [facility] Hemoglobin (Bld) [Mass/Vol] 8 g/dL Low 11.7 - 16.0 g/dL [facility] Immature granulocytes (Bld) [#/Vol] 0.1 10*3/uL High NINF - 0.1 10*3/uL [facility] Immature granulocytes/100 WBC (Bld) 0.6 % 0.0 - 2.0 % [facility] Interpretation and review of laboratory results Abnormal [facility] Lymphocytes (Bld) [#/Vol] 2.4 10*3/uL 1.0 - 4.3 10*3/uL [facility] Lymphocytes/100 WBC (Bld) 13.4 % Low 15.0 - 45.0 % [facility] MCH (RBC) [Entitic mass] 29.5 pg 26.0 - 34.0 pg [facility] MCHC (RBC) [Mass/Vol] 32.9 % 30.5 - 36.0 % [facility] MCV (RBC) [Entitic vol] 89.7 fL 77.0 - 99.0 fL [facility] Monocytes (Bld) [#/Vol] 1.3 10*3/uL High 0.0 - 0.9 10*3/uL [facility] Monocytes/100 WBC (Bld) 7.1 % 5.0 - 13.0 % [facility] Neutrophils (Bld) [#/Vol] 13.4 10*3/uL High 1.8 - 7.5 10*3/uL [facility] Neutrophils/100 WBC (Bld) 75.9 % 38.0 - 82.0 % [facility] Nucleated RBC/100 WBC (Bld) [Ratio] 0 % [facility] Platelet mean volume (Bld) [Entitic vol] 10.4 fL 9.0 - 12.7 fL [facility] Platelets (Bld) [#/Vol] 292 10*3/uL 140 - 440 10*3/uL [facility] RBC (Bld) [#/Vol] 2.71 10*6/uL Low 3.80 - 5.2 0 10*6/uL [facility] WBC (Bld) [#/Vol] 17.7 10*3/uL High 3.6 - 10.7 10*3/uL [facility] HBV surface Ab IA Qnon 01-21 Interpretation: <8.0 Non-Reactive 8.0-11.9 Equivocal >= 12.0 Ab Detected Note: If an equivocal result is interpreted, an antibody status is unable to be determined. Collect new specimen if clinically indicated. [facility] HBV surface Ag IA Qlon 01-21 Interpretation and review of laboratory results Normal [facility] Laboratory - Chemistry and C hemistry - challengeon 01-22-2024 Magnesium [Mass/Vol] 2.2 mg/dL 1.6 - 2 .3 mg/dL [facility] Laboratory - Microbiology an d Antimicrobial susceptibilityon 01-22-2024 HBV surface Ab IA Qn mIU/mL [facility] HBV surface Ag IA Ql Not detected Not Detected [facility] Magnesium [Mass/Vol]on 01-21 Interpretation and review of laboratory results Normal [facility] No Panel Informationon 01-21 [facility] Phosphate [Moles/Vol]on 01-03 Interpretation and review of laboratory results Abnormal [facility] Phosphate [Mass/Vol] 5.5 mg/dL High 2.5 - 4 .5 mg/dL [facility] Basic metabolic 1998 panelOr dered By: Handy Jarvis on 01-21-2024 Anion gap [Moles/Vol] 9 mmol/L 3 - 13 mmol/L [facility] Calcium [Mass/Vol] 7.4 mg/dL Low 8.4 - 10. 4 mg/dL [facility] Chloride [Moles/Vol] 100 mmol/L 98 - 10 7 mmol/L [facility] CO2 [Moles/Vol] 26 mmol/L 22 - 30 mmol/L [facility] Creatinine [Mass/Vol] 4.74 mg/dL High 0.52 - 1.04 mg/dL [facility] [employer] GFR/1.73 sq M.predicted (S/P/Bld) [Vol rate/Area] 9.2 mL/min Low - PINF [facility] [employer] Comment on above: Calculation based on the Chronic Kidney Disease Epidemiology Collaboration (CKD-EPI) equation refit without adjustment for race Glucose [Mass/Vol] 85 mg/dL 70 - 100 mg/dL [facility] [employer] Interpretation and review of laboratory results Abnormal [facility] [employer] Potassium [Moles/Vol] 4.5 mmol/L 3.5 - 5.1 mmol/L [facility] [employer] Sodium [Moles/Vol] 135 mmol/L 135 - 145 mmol/L [facility] [employer] Urea nitrogen [Mass/Vol] 26 mg/dL High 7 - 17 mg/dL [facility] [employer] CBC W Auto Differential pane l (Bld)on 01-21-2024 Basophils (Bld) [#/Vol] 0.1 10*3/uL 0.0 - 0.2 10*3/uL [facility] [employer] Basophils/100 WBC (Bld) 0.6 % 0.0 - 2.0 % [facility] [employer] Eosinophils (Bld) [#/Vol] 0.1 10*3/uL 0.0 - 0.5 10*3/uL [facility] [employer] Eosinophils/100 WBC (Bld) 0.6 % 0.0 - 6.0 % [facility] [employer] Erythrocyte distribution width (RBC) [Ratio] 16.4 % High 11.5 - 15.0 % [facility] [employer] Hematocrit (Bld) [Volume fraction] 21 % Low 35.0 - 47.0 % [facility] [employer] Hemoglobin (Bld) [Mass/Vol] 7 g/dL Low 11.7 - 16.0 g/dL [facility] [employer] Immature granulocytes (Bld) [#/Vol] 0.2 10*3/uL High NINF - 0.1 10*3/uL [facility] [employer] Immature granulocytes/100 WBC (Bld) 0.7 % 0.0 - 2.0 % [facility] [employer] Interpretation and review of laboratory results Abnormal [facility] [employer] Lymphocytes (Bld) [#/Vol] 2.8 10*3/uL 1.0 - 4.3 10*3/uL [facility] [employer] Lymphocytes/100 WBC (Bld) 12.4 % Low 15.0 - 45.0 % [facility] MCH (RBC) [Entitic mass] 30.2 pg 26.0 - 34.0 pg [facility] MCHC (RBC) [Mass/Vol] 33.3 % 30.5 - 36.0 % [facility] MCV (RBC) [Entitic vol] 90.5 fL 77.0 - 99.0 fL [facility] Monocytes (Bld) [#/Vol] 1.2 10*3/uL High 0.0 - 0.9 10*3/uL [facility] Monocytes/100 WBC (Bld) 5.4 % 5.0 - 13.0 % [facility] Neutrophils (Bld) [#/Vol] 18.3 10*3/uL High 1.8 - 7.5 10*3/uL [facility] Neutrophils/100 WBC (Bld) 80.3 % 38.0 - 82.0 % [facility] Nucleated RBC/100 WBC (Bld) [Ratio] 0 % [facility] Platelet mean volume (Bld) [Entitic vol] 10.5 fL 9.0 - 12.7 fL [facility] Platelets (Bld) [#/Vol] 268 10*3/uL 140 - 440 10*3/uL [facility] RBC (Bld) [#/Vol] 2.32 10*6/uL Low 3.80 - 5.2 0 10*6/uL [facility] WBC (Bld) [#/Vol] 22.8 10*3/uL High 3.6 - 10.7 10*3/uL [facility] Hemoglobin (Bld) [Mass/Vol]o n 01-21-2024 Hematocrit (Bld) [Volume fraction] 24.9 % Low 35.0 - 47.0 % [facility] Interpretation and review of laboratory results Abnormal [facility] Hemoglobin (Bld) [Mass/Vol]O rdered By: Shauna Ayon on 01-21-2024 Hematocrit (Bld) [Volume fraction] 20.4 % Low 35.0 - 47.0 % [facility] Interpretation and review of laboratory results Abnormal [facility] Laboratory - Chemistry and C hemistry - challengeon 01-21-2024 Magnesium [Mass/Vol] 2 mg/dL 1.6 - 2 .3 mg/dL [facility] Laboratory - Hematology and Cell countson 01-21-2024 Hemoglobin (Bld) [Mass/Vol] 8.2 g/dL Low 11.7 - 16.0 g/dL [facility] Laboratory - Hematology and Cell countsOrdered By: Shauna Ayon on 01-21-2024 Hemoglobin (Bld) [Mass/Vol] 6.8 g/dL Critically low 11.7 - 16.0 g/dL [facility] Magnesium [Mass/Vol]on 01-20 Interpretation and review of laboratory results Normal [facility] No Panel Informationon 01-20 Blood Expiration Date S [facility] Crossmatch interpretation COMP [facility] [employer] Dispense Status Transfused [facility] [employer] Product Blood Type 5100 [facility] [employer] PRODUCT CODE [id number] [facility] [employer] Unit ABO O [facility] [employer] Unit Number [id number] [facility] Unit RH Positive [facility] Unit Volume 300 mL [facility] Phosphate [Moles/Vol]on 01-03 Interpretation and review of laboratory results Abnormal [facility] Phosphate [Mass/Vol] 6.4 mg/dL High 2.5 - 4 .5 mg/dL [facility] Basic metabolic 1998 panelon 01-20-2024 Anion gap [Moles/Vol] 9 mmol/L 3 - 13 mmol/L [facility] Calcium [Mass/Vol] 7.2 mg/dL Low 8.4 - 10. 4 mg/dL [facility] Chloride [Moles/Vol] 97 mmol/L Low 98 - 10 7 mmol/L [facility] CO2 [Moles/Vol] 27 mmol/L 22 - 30 mmol/L [facility] Creatinine [Mass/Vol] 8.34 mg/dL High 0.52 - 1.04 mg/dL [facility] GFR/1.73 sq M.predicted (S/P/Bld) [Vol rate/Area] 4.7 mL/min Low - PINF [facility] Comment on above: Calculation based on the Chronic Kidney Disease Epidemiology Collaboration (CKD-EPI) equation refit without adjustment for race Glucose [Mass/Vol] 116 mg/dL High 70 - 100 mg/dL [facility] Interpretation and review of laboratory results Abnormal [facility] Potassium [Moles/Vol] 5.3 mmol/L High 3.5 - 5.1 mmol/L [facility] Sodium [Moles/Vol] 132 mmol/L Low 135 - 145 mmol/L [facility] Urea nitrogen [Mass/Vol] 50 mg/dL High 7 - 17 mg/dL [facility] CBC W Auto Differential pane l (Bld)on 01-20-2024 Basophils (Bld) [#/Vol] 0.1 10*3/uL 0.0 - 0.2 10*3/uL [facility] Basophils/100 WBC (Bld) 0.5 % 0.0 - 2.0 % [facility] Eosinophils (Bld) [#/Vol] 0 10*3/uL 0.0 - 0.5 10*3/uL [facility] Eosinophils/100 WBC (Bld) 0 % 0.0 - 6.0 % [facility] Erythrocyte distribution width (RBC) [Ratio] 15.6 % High 11.5 - 15.0 % [facility] Hematocrit (Bld) [Volume fraction] 24.9 % Low 35.0 - 47.0 % [facility] Hemoglobin (Bld) [Mass/Vol] 8.5 g/dL Low 11.7 - 16.0 g/dL [facility] Immature granulocytes (Bld) [#/Vol] 0.1 10*3/uL High NINF - 0.1 10*3/uL [facility] Immature granulocytes/100 WBC (Bld) 0.6 % 0.0 - 2.0 % [facility] Interpretation and review of laboratory results Abnormal [facility] Lymphocytes (Bld) [#/Vol] 2 10*3/uL 1.0 - 4.3 10*3/uL [facility] Lymphocytes/100 WBC (Bld) 10 % Low 15.0 - 45.0 % [facility] MCH (RBC) [Entitic mass] 30.5 pg 26.0 - 34.0 pg [facility] MCHC (RBC) [Mass/Vol] 34.1 % 30.5 - 36.0 % [facility] MCV (RBC) [Entitic vol] 89.2 fL 77.0 - 99.0 fL [facility] Monocytes (Bld) [#/Vol] 1.1 10*3/uL High 0.0 - 0.9 10*3/uL [facility] Monocytes/100 WBC (Bld) 5.4 % 5.0 - 13.0 % [facility] Neutrophils (Bld) [#/Vol] 16.8 10*3/uL High 1.8 - 7.5 10*3/uL [facility] Neutrophils/100 WBC (Bld) 83.5 % High 38.0 - 82.0 % [facility] Nucleated RBC/100 WBC (Bld) [Ratio] 0 % [facility] Platelet mean volume (Bld) [Entitic vol] 10.5 fL 9.0 - 12.7 fL [facility] Platelets (Bld) [#/Vol] 285 10*3/uL 140 - 440 10*3/uL [facility] RBC (Bld) [#/Vol] 2.79 10*6/uL Low 3.80 - 5.2 0 10*6/uL [facility] WBC (Bld) [#/Vol] 20.1 10*3/uL High 3.6 - 10.7 10*3/uL [facility] Hemoglobin (Bld) [Mass/Vol]O rdered By: Adrienne Bradshaw on 01-20-2024 Hematocrit (Bld) [Volume fraction] 24.7 % Low 35.0 - 47.0 % [facility] Interpretation and review of laboratory results Abnormal [facility] Hemoglobin (Bld) [Mass/Vol]o n 01-20-2024 Hematocrit (Bld) [Volume fraction] 21.3 % Low 35.0 - 47.0 % [facility] Interpretation and review of laboratory results Abnormal [facility] Hematocrit (Bld) [Volume fraction] 23.4 % Low 35.0 - 47.0 % [facility] Interpretation and review of laboratory results Abnormal [facility] Hemoglobin (Bld) [Mass/Vol]O rdered By: Andre Ervin on 01-20-2024 Hematocrit (Bld) [Volume fraction] 28.4 % Low 35.0 - 47.0 % [facility] Interpretation and review of laboratory results Abnormal [facility] Laboratory - Chemistry and C hemistry - challengeon 01-20-2024 Magnesium [Mass/Vol] 2 mg/dL 1.6 - 2 .3 mg/dL [facility] Laboratory - Hematology and Cell countsOrdered By: Adrienne Bradshaw on 01-20-2024 Hemoglobin (Bld) [Mass/Vol] 8.3 g/dL Low 11.7 - 16.0 g/dL [facility] - Hematology and Cell countson 01-20-2024 Hemoglobin (Bld) [Mass/Vol] 7.3 g/dL Low 11.7 - 16.0 g/dL [facility] Hemoglobin (Bld) [Mass/Vol] 7.9 g/dL Low 11.7 - 16.0 g/dL [facility] [employer] Laboratory - Hematology and Cell countsOrdered By: Andre Ervin on 01-20-2024 Hemoglobin (Bld) [Mass/Vol] 9.5 g/dL Low 11.7 - 16.0 g/dL [facility] Magnesium [Mass/Vol]on 01-19 Interpretation and review of laboratory results Normal [facility] No Panel InformationOrdered By: Candis Andrade on 01-20-2024 [facility] Work Phone: No Panel InformationOrdered By: Link Alaniz on 01-20-2024 P [place] 88 degrees [employer] Phone: [phone] MS Interval 124 ms [employer] [facility] Phone: QRS [place] 33 degrees [employer] Phone: QRSD Interval 76 ms [employer] [facility] Phone: QT Interval 348 ms [employer] [facility] Phone: QTC Interval 455 ms [employer] [facility] Phone: T Wave [place] 60 degrees Yu Rong Phone: [phone] [facility] Work Phone: [phone] No Panel Informationon 01-19 Sinus tachycardia Consider left ventricular hypertrophy Electronically Signed On 01-20-2024 08:04:49 EDT by Link Wang MD - 01/20/2024 IMPRESSION: Sinus tachycardia Consider left ventricular hypertrophy Electronically Signed On 01-20-2024 08:04:49 EDT by Link Alaniz [facility] [employer] No acute abnormality . Report Dictated on Electronically Signed By: Honorio Grande MD Electronically Signed Date/Time: 01/20/2024 8:00 AM EDT [facility] Patient Name: APOORVA GONZALEZ [...] clips also noted in the antecubital fossa.. [facility] Honorio Grande MD - [...] Electronically Signed Date/Time: 01/20/2024 8:00 AM EDT [facility] Radiology Study observation (narrative) [facility] Phosphate [Moles/Vol]on 01-03 Interpretation and review of laboratory results Abnormal [facility] Phosphate [Mass/Vol] 6.4 mg/dL High 2.5 - 4 .5 mg/dL [facility] RFA Celiac artery Views W co ntrast IAon 01-20-2024 Successful uncomplicated mesenteric arteriogram. Report Dictated on Electronically Signed By: Robson Andrade MD Electronically Signed Date/Time: 01/20/2024 9:37 AM [facility] Patient Name: APOORVA GONZALEZ : 1950 [facility]#: [id number] Exam Date/Time: 01/19/2024 23:19 Procedure: IR ANGIOGRAM [...] head. Access was upsized to a 5 British vascular sheath. Following this, a 0.035 Bentson [...] No intervention was performed at this time. [facility] Candis Andrade MD - [...] head. Access was upsized to a 5 British vascular sheath. Following this, a 0.035 Bentson wire along with a [employer] one catheter were advanced into the thoracic [...] Electronically Signed Date/Time: 01/20/2024 9:37 AM EDT [facility] Vital signsOrdered By: Link darden on 01-20-2024 Heart rate 103 /min bpm [facility] [employer] Work Phone: Blood type and Crossmatch pa kojo (Bld)on 01-19-2024 ABO group Nom (Bld) O [facility] Blood group antibody screen GEL Ql Negative [facility] [employer] D Ag Ql (RBC) Positive [facility] CBC W Auto Differential pane l (Bld)on 01-19-2024 Basophils (Bld) [#/Vol] 0.1 10*3/uL 0.0 - 0.2 10*3/uL [facility] Basophils/100 WBC (Bld) 0.6 % 0.0 - 2.0 % [facility] Eosinophils (Bld) [#/Vol] 0.1 10*3/uL 0.0 - 0.5 10*3/uL [facility] Eosinophils/100 WBC (Bld) 0.4 % 0.0 - 6.0 % [facility] Erythrocyte distribution width (RBC) [Ratio] 16.7 % High 11.5 - 15.0 % [facility] Hematocrit (Bld) [Volume fraction] 24.4 % Low 35.0 - 47.0 % [facility] Hemoglobin (Bld) [Mass/Vol] 7.7 g/dL Low 11.7 - 16.0 g/dL [facility] [employer] Immature granulocytes (Bld) [#/Vol] 0.1 10*3/uL High NINF - 0.1 10*3/uL [facility] [employer] Immature granulocytes/100 WBC (Bld) 0.4 % 0.0 - 2.0 % [facility] Interpretation and review of laboratory results Abnormal [facility] IPF 2 [facility] [employer] Lymphocytes (Bld) [#/Vol] 1.8 10*3/uL 1.0 - 4.3 10*3/uL [facility] Lymphocytes/100 WBC (Bld) 11.1 % Low 15.0 - 45.0 % [facility] MCH (RBC) [Entitic mass] 29.5 pg 26.0 - 34.0 pg [facility] MCHC (RBC) [Mass/Vol] 31.6 % 30.5 - 36.0 % [facility] MCV (RBC) [Entitic vol] 93.5 fL 77.0 - 99.0 fL [facility] [employer] Monocytes (Bld) [#/Vol] 1.1 10*3/uL High 0.0 - 0.9 10*3/uL [facility] [employer] Monocytes/100 WBC (Bld) 6.9 % 5.0 - 13.0 % [facility] Neutrophils (Bld) [#/Vol] 12.8 10*3/uL High 1.8 - 7.5 10*3/uL [facility] Neutrophils/100 WBC (Bld) 80.6 % 38.0 - 82.0 % [facility] Nucleated RBC/100 WBC (Bld) [Ratio] 0 % [facility] [employer] Platelet mean volume (Bld) [Entitic vol] 10.7 fL 9.0 - 12.7 fL [facility] [employer] Platelets (Bld) [#/Vol] 465 10*3/uL High 140 - 440 10*3/uL [facility] RBC (Bld) [#/Vol] 2.61 10*6/uL Low 3.80 - 5.2 0 10*6/uL [facility] WBC (Bld) [#/Vol] 15.9 10*3/uL High 3.6 - 10.7 10*3/uL [facility] CT Abdomen and Pelvis W cont rast Indu 01-19-2024 Descending colon active bleeding. An element of diverticulitis possible. DTR Dr Kaur Report Dictated on Electronically Signed By: Jacob Alcaraz MD Electronically Signed Date/Time: 01/19/2024 7:31 PM EDT [facility] Patient Name: APOORVA GONZALEZ [...] There is extravasation into the ascending colon. [facility] Jacob Alcaraz MD - 01/19/2024 Patient [...] Electronically Signed Date/Time: 01/19/2024 7:31 PM EDT [facility] Radiology Study observation (narrative) [facility] CT Abdomen and Pelvis W cont rast IVOrdered By: Jacob Alcaraz on 01-19-2024 [facility] [employer] Work Phone: Comprehensive metabolic 1998 panelon 01-19-2024 Albumin [Mass/Vol] 4 g/dL 3.5 - 5.0 g/dL [facility] ALP [Catalytic activity/Vol] 88 U/L 38 - 126 U/L [facility] ALT [Catalytic activity/Vol] 14 U/L 0 - 34 U/L [facility] Anion gap [Moles/Vol] 13 mmol/L 3 - 13 mmol/L [facility] AST [Catalytic activity/Vol] 23 U/L 15 - 46 U/L [facility] Bilirubin [Mass/Vol] 0.5 mg/dL 0.2 - 1 .3 mg/dL [facility] Calcium [Mass/Vol] 8.7 mg/dL 8.4 - 10. 4 mg/dL [facility] Chloride [Moles/Vol] 92 mmol/L Low 98 - 10 7 mmol/L [facility] CO2 [Moles/Vol] 30 mmol/L 22 - 30 mmol/L [facility] Creatinine [Mass/Vol] 7.7 mg/dL High 0.52 - 1.04 mg/dL [facility] GFR/1.73 sq M.predicted (S/P/Bld) [Vol rate/Area] 5.1 mL/min Low - PINF [facility] Comment on above: Calculation based on the Chronic Kidney Disease Epidemiology Collaboration (CKD-EPI) equation refit without adjustment for race Glucose [Mass/Vol] 146 mg/dL High 70 - 100 mg/dL [facility] Interpretation and review of laboratory results Abnormal [facility] Potassium [Moles/Vol] 4.9 mmol/L 3.5 - 5.1 mmol/L [facility] Protein [Mass/Vol] 7 g/dL 6.3 - 8.2 g/dL [facility] Sodium [Moles/Vol] 135 mmol/L 135 - 145 mmol/L [facility] Urea nitrogen [Mass/Vol] 47 mg/dL High 7 - 17 mg/dL [facility] Laboratory - Chemistry and C hemistry - challengeon 01-19-2024 Troponin I.cardiac [Mass/Vol] ng/mL NINF - 0.034 ng/mL [facility] Laboratory - Coagulationon 1 aPTT Coag (PPP) [Time] 22.2 s 20.0 - 30.5 s [facility] INR Coag (PPP) [Relative time] 1 {INR} 0.9 - 1.1 [facility] Comment on above: Recommended Anticoag [...] [Time] 11 s 9.0 - 12.0 s [facility] No Panel Informationon 01-18 Blood Expiration Date S [facility] Crossmatch interpretation COMP [facility] Dispense Status Transfused [facility] Product Blood Type 5100 [facility] PRODUCT CODE [id number] [facility] Unit ABO O [facility] Unit Number [id number] [facility] Unit Number [id number] [facility] Unit RH Positive [facility] Unit Volume 300 mL [facility] Interpretation and review of laboratory results Normal [facility] RFA Celiac artery Views W co ntrast IAon 01-19-2024 Radiology Study observation (narrative) [facility] Troponin I.cardiac [Mass/Vol ]on 01-19-2024 Interpretation and review of laboratory results Normal [facility] Patients with high levels of Biotin oral intake (ie >5 mg/day) may have falsely decreased Troponin levels. [facility] Renal function 2000 panelOrd ered By: Cathy Salinas on 08-09-2023 Albumin [Mass/Vol] 4.8 g/dL 3.5 - 5.0 g/dL [facility] Anion gap [Moles/Vol] 15 mmol/L High 3 - 13 mmol/L [facility] Calcium [Mass/Vol] 9.5 mg/dL 8.4 - 10. 4 mg/dL [facility] Chloride [Moles/Vol] 99 mmol/L 98 - 10 7 mmol/L [facility] CO2 [Moles/Vol] 21 mmol/L Low 22 - 30 mmol/L [facility] Creatinine [Mass/Vol] 9.07 mg/dL High 0.52 - 1.04 mg/dL [facility] GFR/1.73 sq M.predicted MDRD (S/P/Bld) [Vol rate/Area] 4.2 mL/min/{1.73_m2} Low - PINF [facility] Comment on above: Calculation based on the Chronic Kidney Disease Epidemiology Collaboration (CKD-EPI) equation refit without adjustment for race Glucose [Mass/Vol] 91 mg/dL 70 - 100 mg/dL [facility] Interpretation and review of laboratory results Abnormal [facility] Phosphate [Mass/Vol] 6.9 mg/dL High 2.5 - 4 .5 mg/dL [facility] Potassium [Moles/Vol] 6.1 mmol/L Critically high 3.5 - 5.1 mmol/L [facility] Sodium [Moles/Vol] 135 mmol/L 135 - 145 mmol/L [facility] Urea nitrogen [Mass/Vol] 65 mg/dL High 7 - 17 mg/dL [facility] Basic metabolic 1998 panelon 03-03-2023 Anion gap [Moles/Vol] 15 mmol/L High 3 - 13 mmol/L [facility] Calcium [Mass/Vol] 9.4 mg/dL 8.4 - 10. 4 mg/dL [facility] Chloride [Moles/Vol] 91 mmol/L Low 98 - 10 7 mmol/L [facility] [employer] CO2 [Moles/Vol] 28 mmol/L 22 - 30 mmol/L [facility] Creatinine [Mass/Vol] 6.25 mg/dL High 0.52 - 1.04 mg/dL [facility] GFR/1.73 sq M.predicted MDRD (S/P/Bld) [Vol rate/Area] 6.7 mL/min/{1.73_m2} Low - PINF [facility] Comment on above: Calculation based on the Chronic Kidney Disease Epidemiology Collaboration (CKD-EPI) equation refit without adjustment for race Glucose [Mass/Vol] 89 mg/dL 70 - 100 mg/dL [facility] Interpretation and review of laboratory results Abnormal [facility] Potassium [Moles/Vol] 4.3 mmol/L 3.5 - 5.1 mmol/L [facility] Sodium [Moles/Vol] 135 mmol/L 135 - 145 mmol/L [facility] Urea nitrogen [Mass/Vol] 33 mg/dL High 7 - 17 mg/dL [facility] CBC W Auto Differential pane l (Bld)Ordered By: Rudy Jacobs on 03-03-2023 Basophils (Bld) [#/Vol] 0.1 10*3/uL 0.0 - 0.2 10*3/uL [facility] Basophils/100 WBC (Bld) 1.4 % 0.0 - 2.0 % [facility] Eosinophils (Bld) [#/Vol] 0.3 10*3/uL 0.0 - 0.5 10*3/uL [facility] Eosinophils/100 WBC (Bld) 4.0 % 1.0 - 6.0 % [facility] Erythrocyte distribution width (RBC) [Ratio] 15.7 % High 11.5 - 14.5 % [facility] Hematocrit (Bld) [Volume fraction] 32.3 % Low 35.0 - 47.0 % [facility] Hemoglobin (Bld) [Mass/Vol] 10.6 g/dL Low 11.7 - 16.0 g/dL [facility] Interpretation and review of laboratory results Abnormal [facility] Lymphocytes (Bld) [#/Vol] 2.2 10*3/uL 1.0 - 4.3 10*3/uL [facility] Lymphocytes/100 WBC (Bld) 25.4 % 20.0 - 40.0 % [facility] MCH (RBC) [Entitic mass] 31.6 pg 26.0 - 34.0 pg [facility] MCHC (RBC) [Mass/Vol] 32.7 % 32.0 - 36.0 % [facility] MCV (RBC) [Entitic vol] 96.7 fL 80.0 - 98.0 fL [facility] Monocytes (Bld) [#/Vol] 0.8 10*3/uL 0.0 - 0.8 10*3/uL [facility] Monocytes/100 WBC (Bld) 8.8 % 2.0 - 10.0 % [facility] Neutrophils (Bld) [#/Vol] 5.2 10*3/uL 1.8 - 7.0 10*3/uL [facility] Neutrophils/100 WBC (Bld) 60.4 % 40.0 - 80.0 % [facility] Nucleated RBC/100 WBC (Bld) [Ratio] 0.0 % [facility] Platelet mean volume (Bld) [Entitic vol] 7.8 fL 7.4 - 12.4 fL [facility] Platelets (Bld) [#/Vol] 351 10*3/uL 140 - 440 10*3/uL [facility] RBC (Bld) [#/Vol] 3.34 10*6/uL Low 3.8 - 5.20 10*6/uL [facility] WBC (Bld) [#/Vol] 8.6 10*3/uL 3.6 - 10.7 10*3/uL [facility] No Panel Informationon 03-03 P [place] 56 degrees [facility] MS Interval 118 ms [facility] QRS [place] 13 degrees [facility] QRSD Interval 80 ms [facility] QT Interval 374 ms [facility] QTC Interval 454 ms [facility] T Wave [place] 57 degrees [facility] Sinus rhythm Left ventricular hypertrophy Normal [place] No ST or T wave changes No significant changes compared to previous Electronically Signed On 03-03-2023 10:54:21 EST by Balta Mckeon MD - 03/03/2023 IMPRESSION: Sinus rhythm Left ventricular hypertrophy Normal [place] No ST or T wave changes No significant changes compared to previous Electronically Signed On 03-03-2023 10:54:21 EST by Balta Wang [facility] Troponin - One Time order ON [place] 03-03-2023 Troponin I.cardiac [Mass/Vol] ng/mL NINF - 0.034 ng/mL [facility] Troponin I.cardiac [Mass/Vol ]on 03-03-2023 Interpretation and review of laboratory results Normal [facility] Patients with high levels of Biotin oral intake (ie >5 mg/day) may have falsely decreased Troponin levels. [facility] [employer] Vital signson 03-03-2023 Heart rate 88 /min bpm [facility] [employer] DBT Breast - bilateral scree congon 01-12-2023 No mammographic evidence of malignancy. ASSESSMENT: Category 1 Negative RECOMMENDATION: Routine screening mammogram in 1 year. Bilateral CANCER RISK ASSESSMENT: This risk assessment is based on patient provided information collected in a risk survey taken at the time of this examination. LIFETIME BREAST CANCER RISK: Tyrer-Shannonzick: 3.33% - If greater than or equal [...] Electronically Signed Date/Time: 01/12/2023 11:44 AM EDT [facility] Name[facility] 1950 [id number] Exam Date/Time: 01/12/2023 11:31 Procedure: BI MAMMOGRAM SCREENING TOMOSYNTHESIS BILATERAL Ordering Provider: GROVE BENSON Reason For Exam: Breast cancer screening, average or low risk (Female >= 18y) Image views: 2D Bilateral CC and MLO views were acquired. 3D Bilateral CC and MLO views were acquired. Images were reviewed with CAD. Markings on images: BB's = Nipples; skin lesions [place] = Palpable Line = Scar COMPARISON: 11/28/2020 and 09/03/2016 TISSUE DENSITY: BIRADS C - The breast tissue is heterogeneously dense, which could obscure underlying abnormalities. FINDINGS: No suspicious masses, architectural distortions or suspiciously clustered microcalcifications are identified. There is no evidence of skin thickening or nipple retraction. There are no significant changes when compared with prior studies. Scout Nalini Márquez MD - 01/12/2023 Patient Name: APOORVA GONZALEZ : 1950 [facility]#: [id number] Exam Date/Time: 01/12/2023 11:31 Procedure: BI MAMMOGRAM SCREENING TOMOSYNTHESIS BILATERAL Ordering Provider: GROVE BENSON Reason For Exam: Breast cancer screening, average or low risk (Female >= 18y) Image views: 2D Bilateral CC and MLO views were acquired. 3D Bilateral CC and MLO views were acquired. Images were reviewed with CAD. Markings on images: BB's = Nipples; skin lesions [place] = Palpable Line = Scar COMPARISON: 11/28/2020 [...] Electronically Signed Date/Time: 01/12/2023 11:44 AM EDT [facility] Study observation (narrative) [facility] DBT Breast - bilateral scree ningOrdered By: Nalini Márquez on 01-12-2023 [facility] Work Phone: XR Chest Single viewon 10-01 FINDINGS AND IMPRESSION: SUPPORT DEVICES: None OSSEOUS STRUCTURES: Unremarkable. HEART AND MEDIASTINUM: The cardiomediastinal silhouette appears unchanged from the prior exam. LUNGS AND PLEURA: The lungs are clear. No sizable pleural effusion. Report Dictated on Electronically Signed By: London Hollis Electronically Signed Date/Time: 10/01/2022 1:42 PM EDT [facility] Patient Name: APOORVA GONZALEZ : 1950 Exam Date/Time: 10/01/2022 13:12 Procedure: XR CHEST 1 VIEW Ordering Provider: HILARIO DAVID Reason For Exam: vasc cath pulled from right subclavian yesterday - bleeding today CHEST CLINICAL INDICATION: Hemorrhage, recent vascular catheter removal TECHNIQUE: AP portable chest COMPARISON: 02/26/2022 [facility] London Hollis MD - [...] Electronically Signed Date/Time: 10/01/2022 1:42 PM EDT [facility] [employer] Radiology Study observation (narrative) [facility] [employer] XR Chest Single viewOrdered By: London Hollis on 10-01-2022 [place] Work Phone: RF Guidance for removal of [...] Electronically Signed Date/Time: 09/30/2022 11:26 AM EDT [facility] [employer] Patient Name: APOORVA GONZALEZ : 1950 Exam Date/Time: 09/30/2022 10:19 Procedure: IR CVC TUNNELED CATHETER REMOVAL Ordering Provider: MEZA OLGA Reason For Exam: n18.6 PROCEDURE: Tunneled central venous catheter removal Procedural Personnel Attending physician(s): Jovan Glynn MD Indication: Catheter no longer needed Additional clinical history: None Complications: No immediate complications. [facility] [employer] Jovan Glynn MD - 09/30/2022 Patient [...] Electronically Signed Date/Time: 09/30/2022 11:26 AM EDT [facility] Radiology Study observation (narrative) [facility] RF Guidance for removal of t unneled CV catheterOrdered By: Jovan Glynn on 09-30-2022 [facility] [employer] Work Phone: Laboratory - Chemistry and C hemistry - challengeon 08-07-2022 Potassium [Moles/Vol] 4.5 mmol/L 3.5 - 5.1 mmol/L [facility] Potassium [Moles/Vol]on Interpretation and review of laboratory results Normal [facility] US VEIN MAPPING UPPER BILon [...] EXTREMITY VEINS BILATERALLY WITH ASSOCIATED MEASUREMENTS DESCRIBED. Corporate Operations Compliance Manager: THU Transcribe Date/Time: Jun 04 2022 7:09A Dictated by : VICTOR MANUEL WRIGHT MD This examination was interpreted and the report reviewed and electronically signed by: VICTOR MANUEL WRIGHT MD on Jun 04 2022 7:17AM EST [id number] Normal [facility] CNCOon 09-11-2021 CNCO Letter Text Normal [facility] CNPNon 12-24-2020 CNPN Telephone (TXCTGL) APOORVA GONZALEZ ([id number]) 1950 F TRN Date Time Provider Department 12/24/20 GRETCHEN DAVID (LAUREN) TXCTGL During your visit today, we recorded [...] Status:Closed by GRETCHEN DAVID MA on 12/24/20 [facility] MG Breast Tomosynthesis Scr Blon 11-28-2020 MG Breast Tomosynthesis Scr Bl Patient Name: CARLOSAPOORVA MELANIE Mammography ACCESSION EXAM DATE/TIME PROCEDURE ORDERING PROVIDER [id number] 11/28/2020 08:55 EDT MG Breast Tomosynthesis CHRISTIANO GROVE BI Scr CPT code 84433 [id number] Reason For Exam (MG Breast Tomosynthesis BI [...] MG breast tomosynthesis bl scr performed at [facility]. TISSUE DENSITY: BIRADS C [...] images: BB's = Nipples; skin lesions [place] = Palpable Line = Scar 2D digital [...] and Time: 11/28/2020 1:13 pm Signed by: STAMATIS, MD, FRANSISCO A [facility] 09-24-2020 [facility] Telephone (TXCTGL) APOORVA GONZALEZ ([id number]) 1950 [facility] Date Time Provider Department 09/24/20 MARY ELLIOTT [...] Encounter Status:Closed by MARY ELLIOTT on 09/24/20 [facility] 09-13-2020 [facility] Telephone (TXCTGL) APOORVA GONZALEZ ([id number]) 1950 F [facility] Date Time Provider Department 09/13/20 GRETCHEN DAVID MA TXCTGJose During your visit today, we recorded the [...] Of Date: 09/13/2020 (None) Encounter Status:Closed by KADEN AGUILAR GRETCHEN on 09/13/20 Normal [facility] CT BIOPSY RENALon 10-25-2019 CT BIOPSY RENAL Final Report DATE OF EXAM: Oct 25 2019 9:26AM [facility] 2019 - CT BIOPSY RENAL / PROCEDURE [...] administration of agent and ending when continuous [id number] time ends): Approximately 25 minutes Patient monitoring: [...] complicated by a small left perinephric hematoma. Corporate Operations Compliance Manager: THU Transcribe Date/Time: Oct 25 2019 10:19A Dictated by : JOSE ANTONIO ADAMS MD This examination was interpreted and the report reviewed and electronically signed by: JOSE ANTONIO ADAMS MD on Oct 25 2019 10:23AM EST Normal [facility] Otheron 10-25-2019 [facility] Pathology Miscellaneouson Pathology Miscellaneous Test performed a t [place] [address] NAME: APOORVA GONZALEZ FRA REQUESTING: JOSE ANTONIO ADAMS MD DIAGNOSIS: Kidney: See complete report from [facility]. SPECIMEN: TISSUE FOR SEND-OUT, Medical Kidney EXTERNAL CONSULT, PATHOLOGIST (Electronic signature on file) Signed out: 11/02/2019 16:25 PRINTED: 11/02/2019 Page 1 of 1 Normal [facility] Comment on above: Performed By: #### M ISC #### [place] [address] Surgical Tissue Examon 10-24 Surgical Tissue Exam Test performed at [place] [address] NAME: APOORVA GONZALEZ FRA REQUESTING: JOSE ANTONIO ADAMS MD COPY TO: CHRISTIANO GROVE FINAL DIAGNOSIS: LEFT KIDNEY, CORE BIOPSIES - TISSUE SUBMITTED DIRECTLY TO [facility] FOR FURTHER EVALUATION. PLEASE SEE THEIR [...] fixative, and glutaraldehyde and submitted directly to [facility] for further evaluation. EDS/sherry EXTERNAL CONSULT, PATHOLOGIST (Electronic signature on file) Signed out: 10/26/2019 08:26 PRINTED: 10/26/2019 Page 1 of 1 [facility] Comment on above: Performed By: #### S URG #### [place] [address] Activated PTTon 10-03-2019 aPTT Coag (Bld) [Time] 27.1 s Normal 23.0-32.4 [facility] Comment on above: Result Comment: Unfr actionated [...] laboratory APTT reagent in use throughout the [facility]. Performed By: #### A PTT #### [facility] [address] [place] [address] Hematologyon 10-03-2019 aPTT Coag (PPP) [Time] 27.1 s 23.0 - 32.4 sec [facility] INR Coag (PPP) [Relative time] 0.93 {INR} 0.90 - 1.30 [facility] PT Coag (PPP) [Time] 10.1 s 9.7 - 1 3.0 sec [facility] Hematocrit (Bld) [Volume fraction] 31.6 % Low 34.1 - 44.9 % [facility] Hemoglobin (Bld) [Mass/Vol] 9.9 g/dL Low 11.2 - 15.7 g/dL [facility] MCH (RBC) [Entitic mass] 28.9 pg 25.6 - 32.2 pg [facility] MCV (RBC) [Entitic vol] 92.1 fL 79.4 - 94.8 fl [facility] Platelets (Bld) [#/Vol] 502 thou/cmm High 182 - 369 thou/cmm [facility] RBC (Bld) [#/Vol] 3.43 mil/cmm Low 3.93 - 5.2 2 mil/cmm [facility] WBC (Bld) [#/Vol] 13.18 thou/cmm High 3.98 - 1 0.04 thou/cmm [facility] Hemogramon 10-03-2019 Erythrocyte distribution width (RBC) [Ratio] 13.5 % Normal 11.7-14.4 [facility] Comment on above: Performed By: #### C BC1 #### [facility] [address] [place] [address] Hematocrit (Bld) [Volume fraction] 31.6 % Low 34.1-44.9 [facility] Comment on above: Performed By: #### C BC1 #### [facility] [address] [place], [place] [address] Hemoglobin (Bld) [Mass/Vol] 9.9 g/dL Low 11.2-15.7 [facility] Comment on above: Performed By: #### C BC1 #### [facility] [address] [place] [address] MCH (RBC) [Entitic mass] 28.9 pg Normal 25.6-32.2 [facility] Comment on above: Performed By: #### C BC1 #### [facility] [address] [place] [address] MCHC (RBC) [Mass/Vol] 31.3 % Low 31.6-34.8 [facility] Comment on above: Performed By: #### C BC1 #### [facility] [address] [place] [address] MCV (RBC) [Entitic vol] 92.1 fL Normal 79.4-94.8 [facility] Comment on above: Performed By: #### C BC1 #### [facility] [address] [place] [address] Platelet mean volume (Bld) [Entitic vol] 10.8 fL Normal 9.4-12.3 [facility] Comment on above: Performed By: #### C BC1 #### [facility] [address] [place], [place] [address] Platelets (Bld) [#/Vol] 502 thou/cmm High 182-369 [facility] Comment on above: Performed By: #### C BC1 #### [facility] [address] [place] [id number] RBC (Bld) [#/Vol] 3.43 mil/cmm Low 3.93-5.22 [facility] Comment on above: Performed By: #### C BC1 #### [facility] [address] [place], [place] [address] RDW SD 45.1 fl Normal 36.4-46.3 [facility] Comment on above: Performed By: #### C BC1 #### [facility] [address] [place], [place] [address] WBC (Bld) [#/Vol] 13.18 thou/cmm High 3.98-10.04 [facility] Comment on above: Performed By: #### C BC1 #### [facility] [address] [place], [place] [address] Otheron 10-03-2019 Erythrocyte distribution width (RBC) [Entitic vol] 45.1 fL 36.4 - 46.3 fl [facility] Erythrocyte distribution width (RBC) [Ratio] 13.5 % 11.7 - 14.4 % [facility] MCHC (RBC) [Mass/Vol] 31.3 % Low 31.6 - 34.8 % [facility] Platelet mean volume (Bld) [Entitic vol] 10.8 fL 9.4 - 12.3 fl [facility] Protimeon 10-03-2019 INR Coag (PPP) [Relative time] 0.93 {INR} Normal 0.90-1.30 [facility] Comment on above: Result Comment: Haylee min K Antagonist (VKA) Therapeutic Range: INR 2 to 3 (Target INR of 2.5) Note: For patients treated with VKA drugs, such as warfarin, the [employer] 2012 Guideline recommends [...] GH, et al. Chest 2012; 141:7S-47S Joselyn RA et al. JACC 2017; 70: 252-289 Performed By: #### P T #### [facility] [address] [place], [place] [address] PT Coag (PPP) [Time] 10.1 s Normal 9.7-13.0 [facility] Comment on above: Performed By: #### P T #### [facility] [address] [place], [place] [address] US RETROPERITONEAL COMPLETEo n 07-24-2019 Patient Name: APOORVA GONZALEZ ---Ultrasound--- Exam Date/Time 07/24/2019 15:50:07 EDT Exam US Retroperitoneal Complete Ordering Physician CHRISTIANO GROVE Accession Number [id number] CPT4 Codes 60584 () Reason For Exam stage 4 kid [...] R Transcribed Date and Time: 07/24/2019 3:25 [facility] Incoming Radiology Results From [facility] - 07/24/2019 3:50 PM EDT Patient Name: APOORVA GONZALEZ ---Ultrasound--- Exam Date/Time 07/24/2019 15:50:07 EDT Exam US Retroperitoneal Complete Ordering Physician CARYL CHRISTIANO Kirkland Accession Number [id number] CPT4 Codes 14760 () Reason For Exam stage 4 kid [...] R Transcribed Date and Time: 07/24/2019 3:25 [place], [place] Vital Signs Date Time Vital Sign Value Performing Clinician Facility 12-28-2024 10:00-0400 Body temperature 98.71 [degF] Brown Martinezya DO Work Phone: [facility] 12-28-2024 10:00-0400 Diastolic blood pressure 76 mm[Hg] Brown Natasha DO Work Phone: [facility] 12-28-2024 10:00-0400 Heart rate 91 /min ken Martinezya DO Work Phone: [facility] 12-28-2024 10:00-0400 Respiratory rate 14 /min ken Martinezya DO Work Phone: [facility] 12-28-2024 10:00-0400 SaO2% (BldA) [Mass fraction] 100 % ken Natasha DO Work Phone: [facility] [employer] 12-28-2024 10:00-0400 Systolic blood pressure 162 mm[Hg] Brown Kaur DO Work Phone: [facility] [employer] 12-20-2024 17:50-0400 Body temperature 98.01 [degF] Mason Munson MD Work Phone: [facility] [employer] 12-20-2024 17:50-0400 Diastolic blood pressure 78 mm[Hg] Mason Munson MD Work Phone: [facility] [employer] 12-20-2024 17:50-0400 Heart rate 101 /min Mason Munson MD Work Phone: [facility] 12-20-2024 17:50-0400 Respiratory rate 16 /min Mason Munson MD Work Phone: [facility] 12-20-2024 17:50-0400 SaO2% (BldA) [Mass fraction] 98 % Mason Munson MD Work Phone: [facility] [employer] 12-20-2024 17:50-0400 Systolic blood pressure 182 mm[Hg] Mason Munson MD Work Phone: [facility] 12-11-2024 20:45-0400 SaO2% (BldA) [Mass fraction] 85.3 % Mason Munson MD Work Phone: [facility] 12-11-2024 10:14-0400 Body mass index (BMI) [Ratio] 19.61 kg/m2 Mason Munson MD Work Phone: [facility] [employer] 12-11-2024 10:14-0400 Body weight 52.75 kg Mason Munson MD Work Phone: [facility] 12-11-2024 06:46-0400 Body height 164 cm Mason Munson MD Work Phone: [facility] 12-06-2024 10:54-0400 Body height 162.6 cm Raffy Rojas MD Work Phone: [facility] 12-06-2024 10:54-0400 Body mass index (BMI) [Ratio] 17.68 kg/m2 Raffy Rojas MD Work Phone: [facility] 12-06-2024 10:54-0400 Body weight 46.72 kg Raffy Rojas MD Work Phone: [facility] 12-06-2024 10:54-0400 Heart rate 94 /min Raffy Rojas MD Work Phone: [facility] 12-06-2024 10:54-0400 Respiratory rate 18 /min Raffy Rojas MD Work Phone: [facility] 12-06-2024 10:54-0400 SaO2% (BldA) [Mass fraction] 98 % Raffy Rojas MD Work Phone: [facility] 11-27-2024 15:46-0400 Body height 162.6 cm Raffy Rojas MD Work Phone: [facility] 11-27-2024 15:46-0400 Body mass index (BMI) [Ratio] 17.68 kg/m2 Raffy Rojas MD Work Phone: [facility] 11-27-2024 15:46-0400 Body weight 46.72 kg Raffy Rojas MD Work Phone: [facility] [employer] 11-27-2024 15:46-0400 Heart rate 70 /min Raffy Rojas MD Work Phone: [facility] 11-27-2024 15:46-0400 Respiratory rate 18 /min Raffy Rojas MD Work Phone: [facility] [employer] 11-27-2024 15:46-0400 SaO2% (BldA) [Mass fraction] 97 % Raffy Rojas MD Work Phone: [facility] 11-22-2024 18:08-0400 Diastolic blood pressure 88 mm[Hg] Kev Warner MD Work Phone: [facility] 11-22-2024 18:08-0400 Heart rate 85 /min Kev Warner MD Work Phone: [facility] 11-22-2024 18:08-0400 Respiratory rate 20 /min Kev Warner MD Work Phone: [facility] [employer] 11-22-2024 18:08-0400 Systolic blood pressure 149 mm[Hg] Kev Warner MD Work Phone: [facility] 11-22-2024 15:57-0400 Body height 162.6 cm Kev Warner MD Work Phone: [facility] 11-22-2024 15:57-0400 Body mass index (BMI) [Ratio] 17.68 kg/m2 Kev Warner MD Work Phone: [facility] 11-22-2024 15:57-0400 Body temperature 97.39 [degF] Kev Warner MD Work Phone: [facility] 11-22-2024 15:57-0400 Body weight 46.72 kg Kev Warner MD Work Phone: [facility] 11-22-2024 15:57-0400 SaO2% (BldA) [Mass fraction] 100 % Kev Warner MD Work Phone: [facility] 11-15-2024 11:15-0400 Body temperature 98.1 [degF] CHAPARRO Moore MD Work Phone: [facility] 11-15-2024 11:15-0400 Diastolic blood pressure 73 mm[Hg] CHAPARRO Moore MD Work Phone: [facility] 11-15-2024 11:15-0400 Heart rate 61 /min CHAPARRO Moore MD Work Phone: [facility] 11-15-2024 11:15-0400 Respiratory rate 16 /min CHAPARRO Moore MD Work Phone: [facility] [facility] 11-15-2024 11:15-0400 SaO2% (BldA) [Mass fraction] 100 % CHAPARRO Moore MD Work Phone: [facility] 11-15-2024 11:15-0400 Systolic blood pressure 150 mm[Hg] CHAPARRO Moore MD Work Phone: [facility] 11-15-2024 04:48-0400 Body mass index (BMI) [Ratio] 18.76 kg/m2 CHAPARRO Moore MD Work Phone: [facility] 11-15-2024 04:48-0400 Body weight 49.58 kg CHAPARRO Moore MD Work Phone: [facility] 11-14-2024 06:25-0400 Body height 162.6 cm CHAPARRO Moore MD Work Phone: [facility] 11-11-2024 13:12-0400 Body temperature 97.59 [degF] Veronica Abebe MD Work Phone: [facility] 11-11-2024 13:12-0400 Diastolic blood pressure 80 mm[Hg] Veronica Abebe MD Work Phone: [facility] 11-11-2024 13:12-0400 Heart rate 87 /min Veronica Abebe MD Work Phone: [facility] 11-11-2024 13:12-0400 Respiratory rate 16 /min Veronica Abebe MD Work Phone: [facility] 11-11-2024 13:12-0400 SaO2% (BldA) [Mass fraction] 100 % Veronica Abebe MD Work Phone: [facility] 11-11-2024 13:12-0400 Systolic blood pressure 154 mm[Hg] Veronica Abebe MD Work Phone: [facility] 11-10-2024 06:00-0400 Body mass index (BMI) [Ratio] 20.13 kg/m2 Veronica Abebe MD Work Phone: [facility] 11-10-2024 06:00-0400 Body weight 53.2 kg Veronica Abebe MD Work Phone: [facility] 10-26-2024 14:38-0400 Body height 162.6 cm Veronica Abebe MD Work Phone: [facility] [employer] 09-06-2024 16:42-0400 Body temperature 100.2 [degF] Carine Mejia DO Work Phone: [facility] 09-06-2024 16:42-0400 Diastolic blood pressure 71 mm[Hg] Carine Mejia DO Work Phone: [facility] 09-06-2024 16:42-0400 Heart rate 110 /min Carine Mejia DO Work Phone: [facility] 09-06-2024 16:42-0400 Respiratory rate 16 /min Carine Mejia DO Work Phone: [facility] 09-06-2024 16:42-0400 SaO2% (BldA) [Mass fraction] 100 % Carine Mejia DO Work Phone: [facility] 09-06-2024 16:42-0400 Systolic blood pressure 157 mm[Hg] Carine Mejia DO Work Phone: [facility] 08-31-2024 01:34-0400 Body height 163 cm Carine Mejia DO Work Phone: [facility] 08-31-2024 01:34-0400 Body mass index (BMI) [Ratio] 19.5 kg/m2 Carine Mejia DO Work Phone: [facility] 08-31-2024 01:34-0400 Body weight 51.8 kg Carine Mejia DO Work Phone: [facility] 07-17-2024 21:10-0400 Body temperature 98.8 [degF] Rivas Pal-Marblargena DO Work Phone: [facility] [employer] 07-17-2024 20:32-0400 Diastolic blood pressure 73 mm[Hg] Rivas Pal-Johnuever DO Work Phone: [facility] [employer] 07-17-2024 20:32-0400 Heart rate 92 /min Rivas Monetsutru-Marblargena DO Work Phone: [facility] [employer] 07-17-2024 20:32-0400 Respiratory rate 16 /min Rivas MonetsutruFreeMoneeMeghana DO Work Phone: [facility] [employer] 07-17-2024 20:32-0400 SaO2% (BldA) [Mass fraction] 98 % Rivas PalNatureBoxangy DO Work Phone: [facility] [employer] 07-17-2024 20:32-0400 Systolic blood pressure 127 mm[Hg] Rivas MonetsutruFreeMoneeMeghana DO Work Phone: [facility] [employer] 07-17-2024 14:07-0400 Body mass index (BMI) [Ratio] 19.74 kg/m2 Rivas MonetsutruFreeMoneeMeghana DO Work Phone: [facility] [employer] 07-17-2024 14:07-0400 Body weight 52.16 kg Rivas MonetsutruNatureBoxangy DO Work Phone: [facility] [employer] 06-29-2024 19:34-0400 Diastolic blood pressure 84 mm[Hg] Veronica Abebe MD Work Phone: [facility] [employer] 06-29-2024 19:34-0400 Heart rate 84 /min Veronica Abebe MD Work Phone: [facility] [employer] 06-29-2024 19:34-0400 Respiratory rate 18 /min Veronica Abebe MD Work Phone: [facility] [employer] 06-29-2024 19:34-0400 SaO2% (BldA) [Mass fraction] 100 % Veronica Abebe MD Work Phone: [facility] [employer] 06-29-2024 19:34-0400 Systolic blood pressure 166 mm[Hg] Veronica Abebe MD Work Phone: [facility] [employer] 06-29-2024 17:56-0400 Body temperature 97.7 [degF] Veronica Abebe MD Work Phone: [facility] [employer] 06-29-2024 06:01-0400 Body height 162.6 cm Veronica Abebe MD Work Phone: [facility] 06-29-2024 06:01-0400 Body mass index (BMI) [Ratio] 19.22 kg/m2 Veronica Abebe MD Work Phone: [facility] 06-29-2024 06:01-0400 Body weight 50.8 kg Veronica Abebe MD Work Phone: [facility] 06-09-2024 13:36-0500 Body height 162.6 cm Roxierachael Spain Work Phone: [facility] 06-09-2024 13:36-0500 Body mass index (BMI) [Ratio] 19.22 kg/m2 Roxierachael Spain Work Phone: [facility] 06-09-2024 13:36-0500 Body weight 50.8 kg Roxierachael Spain Work Phone: [facility] 03-03-2024 19:56-0500 Body temperature 97.5 [degF] Marcus Gombash DO Work Phone: [facility] 03-03-2024 19:56-0500 Diastolic blood pressure 81 mm[Hg] Marcus Gombash DO Work Phone: [facility] 03-03-2024 19:56-0500 Heart rate 91 /min Marcus Gombash DO Work Phone: [facility] 03-03-2024 19:56-0500 Respiratory rate 16 /min Marcus Gombash DO Work Phone: [facility] 03-03-2024 19:56-0500 SaO2% (BldA) [Mass fraction] 96 % Marcus Gombash DO Work Phone: [facility] 03-03-2024 19:56-0500 Systolic blood pressure 168 mm[Hg] Marcus Gombash DO Work Phone: [facility] 03-03-2024 04:14-0500 Body mass index (BMI) [Ratio] 18.09 kg/m2 Marcus Gombash DO Work Phone: [facility] [employer] 03-03-2024 04:14-0500 Body weight 47.81 kg Marcus Gomarin DO Work Phone: [facility] [employer] 03-02-2024 09:56-0500 Body height 162.6 cm Marcus Gombash DO Work Phone: [facility] [employer] 02-20-2024 15:07-0500 Body temperature 98.29 [degF] Cassie Mace DO Work Phone: [facility] [employer] 02-20-2024 15:07-0500 Diastolic blood pressure 72 mm[Hg] Cassie Glassworth DO Work Phone: [facility] [employer] 02-20-2024 15:07-0500 Heart rate 87 /min Cassie Mace DO Work Phone: [facility] [employer] 02-20-2024 15:07-0500 Respiratory rate 16 /min Cassie Mace DO Work Phone: [facility] [employer] 02-20-2024 15:07-0500 SaO2% (BldA) [Mass fraction] 94 % Cassie Mace DO Work Phone: [facility] [employer] 02-20-2024 15:07-0500 Systolic blood pressure 151 mm[Hg] Cassie Glassworth DO Work Phone: [facility] [employer] 02-20-2024 00:00-0500 Body mass index (BMI) [Ratio] 18.37 kg/m2 Cassie Mace DO Work Phone: [facility] [employer] 02-20-2024 00:00-0500 Body weight 48.53 kg Cassie Glassworth DO Work Phone: [facility] [employer] 02-19-2024 21:01-0500 Body height 162.6 cm Cassie Mace DO Work Phone: [facility] [employer] 02-12-2024 14:21-0500 Body temperature 97.7 [degF] Marcus Gombquentin DO Work Phone: [facility] [employer] 02-12-2024 14:21-0500 Diastolic blood pressure 71 mm[Hg] Marcus Gombash DO Work Phone: [facility] [employer] 02-12-2024 14:21-0500 Heart rate 87 /min Marcus Gombash DO Work Phone: [facility] [employer] 02-12-2024 14:21-0500 Respiratory rate 14 /min Marcus Gombash DO Work Phone: [facility] [employer] 02-12-2024 14:21-0500 SaO2% (BldA) [Mass fraction] 96 % Marcus Gombash DO Work Phone: [facility] 02-12-2024 14:21-0500 Systolic blood pressure 153 mm[Hg] Marcus Gombash DO Work Phone: [facility] [employer] 01-25-2024 16:23-0400 Body temperature 97.9 [degF] Mejgon Natasha DO Work Phone: [facility] [employer] 01-25-2024 16:23-0400 Diastolic blood pressure 77 mm[Hg] Mejgon Natasha DO Work Phone: [facility] 01-25-2024 16:23-0400 Heart rate 107 /min Mejgon Natasha DO Work Phone: [facility] 01-25-2024 16:23-0400 Respiratory rate 18 /min Mejgon Natasha DO Work Phone: [facility] [employer] 01-25-2024 16:23-0400 SaO2% (BldA) [Mass fraction] 99 % Mejgon Natasha DO Work Phone: [facility] 01-25-2024 16:23-0400 Systolic blood pressure 158 mm[Hg] Mejgon Natasha DO Work Phone: [facility] [employer] 01-25-2024 08:27-0400 Body height 162.6 cm Mejgon Natasha DO Work Phone: [facility] 01-25-2024 08:27-0400 Body mass index (BMI) [Ratio] 19.74 kg/m2 Brown Kaur DO Work Phone: [facility] [employer] 01-25-2024 08:27-0400 Body weight 52.16 kg Brown Kaur DO Work Phone: [facility] [employer] 08-09-2023 20:40-0400 Diastolic blood pressure 75 mm[Hg] Samuel Amatola DO Work Phone: [facility] [employer] 08-09-2023 20:40-0400 Heart rate 82 /min Samuel Amatola DO Work Phone: [facility] [employer] 08-09-2023 20:40-0400 Respiratory rate 18 /min Samuel Velasquez DO Work Phone: [facility] [employer] 08-09-2023 20:40-0400 SaO2% (BldA) [Mass fraction] 100 % Samuel Amatola DO Work Phone: [facility] [employer] 08-09-2023 20:40-0400 Systolic blood pressure 147 mm[Hg] Samuel Lmla DO Work Phone: [facility] [employer] 08-09-2023 20:02-0400 Body temperature 97.59 [degF] Samuel Lmla DO Work Phone: [facility] [employer] 08-09-2023 15:43-0400 Body height 162.6 cm Samuel Amatola DO Work Phone: [facility] [employer] 08-09-2023 15:43-0400 Body mass index (BMI) [Ratio] 18.88 kg/m2 Samuel Amatola DO Work Phone: [facility] [employer] 08-09-2023 15:43-0400 Body weight 49.9 kg Samuel Velasquez DO Work Phone: [facility] [employer] 03-03-2023 08:32-0500 Body temperature 97.81 [degF] Alvarado Bonyo DO Work Phone: [facility] [employer] 03-03-2023 08:32-0500 Diastolic blood pressure 72 mm[Hg] Alvarado Bonyo DO Work Phone: [facility] [employer] 03-03-2023 08:32-0500 Heart rate 88 /min Alvarado Bonyo DO Work Phone: [facility] [employer] 03-03-2023 08:32-0500 Respiratory rate 18 /min Alvarado Bonyo DO Work Phone: [facility] [employer] 03-03-2023 08:32-0500 SaO2% (BldA) [Mass fraction] 96 % Alvarado Bonyo DO Work Phone: [facility] [employer] 03-03-2023 08:32-0500 Systolic blood pressure 143 mm[Hg] Alvarado Bonyo DO Work Phone: [facility] [employer] 01-12-2023 11:18-0400 Body height 162.6 cm Alvarado Bonyo DO Work Phone: [facility] [employer] 01-12-2023 11:18-0400 Body mass index (BMI) [Ratio] 19.74 kg/m2 Alvarado Bonyo DO Work Phone: [facility] [employer] 01-12-2023 11:18-0400 Body weight 52.16 kg Alvarado Bonyo DO Work Phone: [facility] [employer] 10-01-2022 12:05-0400 Body mass index (BMI) [Ratio] 19.57 kg/m2 Mak Hilario MD Work Phone: [facility] [employer] 10-01-2022 12:05-0400 Body temperature 97.7 [degF] Mak Hilario MD Work Phone: [facility] [employer] 10-01-2022 12:05-0400 Body weight 51.71 kg Mak Hilario MD Work Phone: [facility] [employer] 10-01-2022 12:05-0400 Diastolic blood pressure 75 mm[Hg] Mak Hilario MD Work Phone: [facility] [employer] 10-01-2022 12:05-0400 Heart rate 81 /min Mak Hilario MD Work Phone: [facility] [employer] 10-01-2022 12:05-0400 Respiratory rate 14 /min Mak Hilario MD Work Phone: [facility] 10-01-2022 12:05-0400 SaO2% (BldA) [Mass fraction] 98 % Mak Hilario MD Work Phone: [facility] 10-01-2022 12:05-0400 Systolic blood pressure 139 mm[Hg] Mak Hilario MD Work Phone: [facility] [employer] 08-07-2022 14:00-0400 Diastolic blood pressure 65 mm[Hg] Raffy Rojas MD Work Phone: [facility] [employer] 08-07-2022 14:00-0400 Heart rate 73 /min Raffy Rojas MD Work Phone: [facility] [employer] 08-07-2022 14:00-0400 Respiratory rate 11 /min Raffy Rojas MD Work Phone: [facility] [employer] 08-07-2022 14:00-0400 SaO2% (BldA) [Mass fraction] 100 % Raffy Rojas MD Work Phone: [facility] [employer] 08-07-2022 14:00-0400 Systolic blood pressure 108 mm[Hg] Raffy Rojas MD Work Phone: [facility] 08-07-2022 13:30-0400 Body temperature 97.7 [degF] Raffy Rojas MD Work Phone: [facility] [employer] 08-07-2022 08:15-0400 Body height 162.6 cm Raffy Rojas MD Work Phone: [facility] [employer] 08-07-2022 08:15-0400 Body mass index (BMI) [Ratio] 18.88 kg/m2 Raffy Rojas MD Work Phone: [facility] 08-07-2022 08:15-0400 Body weight 49.9 kg Raffy Rojas MD Work Phone: [facility] [employer] 06-24-2022 09:35-0400 Body height 162.6 cm Raffy Rojas MD Work Phone: [facility] 06-24-2022 09:35-0400 Body mass index (BMI) [Ratio] 19.57 kg/m2 Raffy Rojas MD Work Phone: [facility] 06-24-2022 09:35-0400 Body weight 51.71 kg Raffy Rojas MD Work Phone: [facility] 06-24-2022 09:35-0400 Diastolic blood pressure 75 mm[Hg] Raffy Rojas MD Work Phone: [facility] 06-24-2022 09:35-0400 Heart rate 90 /min Raffy Rojas MD Work Phone: [facility] 06-24-2022 09:35-0400 Systolic blood pressure 130 mm[Hg] Raffy Rojas MD Work Phone: [facility] 10-25-2019 09:48-0400 BP Diastolic 90 mm[Hg] [facility] 10-25-2019 09:48-0400 BP Systolic 123 mm[Hg] [facility] 10-25-2019 09:48-0400 Pulse (Heart Rate) 71 /min [facility]iel 10-25-2019 09:48-0400 Pulse Oximetry 100 % [facility] 10-25-2019 09:48-0400 Respiratory Rate 16 /min [facility] 10-25-2019 07:35-0400 Body Temperature 97 [degF] [facility] 10-25-2019 07:35-0400 Body weight 57.61 kg [facility] 10-25-2019 07:35-0400 Height 162.6 cm [facility] Encounters Encounter Date Encounter Type Care Provider Facility Start: 02-09-2025 ambulatory Randy FRIED Faci lity:[facility] Start: 01-29-2025 ambulatory Randy FRIED Faci lity:[facility] Start: 01-26-2025 ambulatory Alex FRIED Facility:[facility] Start: 01-25-2025 ambulatory Alex guevara OLS Facility:[facility] Start: 01-09-2025 End: 01-09-2025 ambulatory Alex Cronin OLS Facility:[facility] Start: 01-05-2025 End: 01-05-2025 ambulatory Randy Brothers OLS Facility:[facility] Start: 12-28-2024 End: 12-28-2024 Emergency department patient visit Brown Kaur Work Phone: [facility] Comment on above: Transient alteration of awareness (Primary Dx) Start: 12-25-2024 End: 12-25-2024 [facility] Start: 12-08-2024 End: 12-20-2024 Evaluation and management of inpatient Mason Munson MD Work Phone: [facility] Start: 12-06-2024 End: 12-06-2024 Preprocedural examination done Raffy Rojas MD Work Phone: [facility] Start: 12-06-2024 End: 12-06-2024 Subsequent hospital visit by physician Raffy Rojas MD Work Phone: [facility] Comment on above: ESRD (end stage bladimir l disease) on dialysis (HCC); Preop examination Start: 12-06-2024 End: 12-06-2024 ambulatory [employer] [facility] Start: 12-06-2024 End: 12-06-2024 Encounter for other preprocedural examination RAFFY [employer] [facility] Start: 12-06-2024 End: 12-06-2024 Postop follow up visit related to original px Raffy Rojas MD Work Phone: [facility] [place] Comment on above: ESRD (end stage bladimir l disease) on dialysis (HCC) (Primary Dx) Start: 12-06-2024 End: 12-06-2024 ambulatory [facility] Start: 12-05-2024 End: 12-05-2024 ambulatory Alex [facility] Facility:[facility] Start: 12-01-2024 ambulatory Randy FRIED Faci lity:[facility] Start: 11-30-2024 End: 11-30-2024 ambulatory Alex FRIED Facility:[facility] Start: 11-27-2024 End: 11-27-2024 ambulatory ROXIE SPAIN [facility] Start: 11-27-2024 End: 11-27-2024 Postop follow up visit related to original px Raffy Rojas MD Work Phone: [facility] Comment on above: ESRD (end stage bladimir l disease) on dialysis (HCC) (Primary Dx) Start: 11-22-2024 End: 11-22-2024 Emergency department patient visit Kev Warner MD Work Phone: [facility] ED Comment on above: Anemia of chronic di sease (Primary Dx) Start: 11-22-2024 ambulatory Alex FRIED Facility:[facility] Start: 11-16-2024 End: 11-16-2024 Orders Only Kellee Gonzalez RN [facility] Comment on above: End stage congestive heart failure (HCC) (Primary Dx); ESRD (end stage renal disease) (HCC) Start: 11-12-2024 End: 11-15-2024 ambulatory FELIBERTO KAMINSKI [facility] Start: 11-12-2024 End: 11-15-2024 Evaluation and management of inpatient Roz Moore MD Work Phone: [facility] Cardiac Vascular Progressive Care Unit PCC 1C Comment on above: Wound dehiscence (Pr imary Dx); Anemia due to other cause, not classified; End stage congestive heart failure (HCC); Seizures (HCC); Pressure ulcer of left buttock, stage 3 (HCC) Start: 10-22-2024 End: 11-11-2024 Evaluation and management of inpatient Veronica Abebe MD Work Phone: [facility] Start: 09-13-2024 End: 10-12-2024 Evaluation and management of inpatient JOHN MAYES [facility] Start: 08-30-2024 End: 09-06-2024 Evaluation and management of inpatient Carine Mejia DO Work Phone: [facility] [address] Comment on above: Hematoma (Primary Dx ) Start: 08-26-2024 End: 08-30-2024 Evaluation and management of inpatient YONY BHAKTA DO~[id number] [facility] Start: 08-14-2024 End: 08-24-2024 Evaluation and management of inpatient YONY BHAKTA DO~[id number] [facility] Start: 07-17-2024 End: 07-17-2024 Emergency department patient visit Rivas Sanchez DO Work Phone: [facility] EMERGENCY DEPT Comment on above: Adverse effect of dr sue, initial encounter (Primary Dx) Start: 06-29-2024 End: 06-29-2024 Emergency department patient visit Veronica Abebe MD Work Phone: [facility] Comment on above: Myoclonus (Primary D x); Fall, initial encounter; Hyperkalemia Start: 06-09-2024 End: 06-09-2024 Subsequent hospital visit by physician Roxie Spain Work Phone: [facility] Comment on above: Encounter for screen ing mammogram for malignant neoplasm of breast Start: 06-09-2024 End: 06-09-2024 ambulatory ROXIE SPAIN [facility] Start: 05-23-2024 End: 05-23-2024 Emergency department patient visit RONDA TEJEDA DO~[id number] [facility] Start: 03-02-2024 End: 03-03-2024 ambulatory MAGALYS CAN [facility] Start: 03-02-2024 End: 03-03-2024 Emergency department patient visit Marcus Ragland DO Work Phone: [facility] Cardiac Progressive Care Unit PCU 5W Comment on above: Shortness of breath (Primary Dx); Acute pulmonary edema (HCC); Hyperkalemia Start: 02-19-2024 End: 02-20-2024 Evaluation and management of inpatient Eveliaquinn Rodri DO Work Phone: [facility] Cardiac Progressive Care Unit PCU 5W Comment on above: Pulmonary edema, acu te (HCC) (Primary Dx) Start: 02-12-2024 End: 02-12-2024 Emergency department patient visit Marcus Ragland DO Work Phone: [facility] EM[facility]ENCY [facility] Comment on above: Hypertension, unspec ified type (Primary Dx) Start: 01-19-2024 End: 01-25-2024 Evaluation and management of inpatient Brown Kaur DO Work Phone: [facility] Comment on above: Gastrointestinal hem orrhage, unspecified gastrointestinal hemorrhage type (Primary Dx); Anemia, unspecified type Start: 08-09-2023 End: 08-09-2023 Emergency department patient visit Samuel Velasquez DO Work Phone: [facility] EM[facility]GENCY [facility]PT Comment on above: Hyperkalemia (Primar y Dx) Start: 06-25-2023 End: 09-24-2023 Transcribe Orders Radha Meza MD Work Phone: [facility] Comment on above: End stage renal dise ase (HCC) (Primary Dx) Start: 03-03-2023 End: 03-03-2023 Emergency department patient visit Christiano Grove DO Work Phone: [facility] EM[facility]GENCY DEPT Comment on above: ESRD on hemodialysis (CMS/HCC) (HCC) (Primary Dx) Start: 03-03-2023 End: 03-03-2023 Subsequent hospital visit by physician Nandini Ecg [facility] Non-Invasive Cardiology Comment on above: Arrived Start: 01-12-2023 End: 01-12-2023 Subsequent hospital visit by physician Christiano Grove DO Work Phone: [facility] Comment on above: Encounter for screen ing mammogram for malignant neoplasm of breast Start: 10-01-2022 Telephone encounter Katherin Salinas RN [facility] Special Procedures Start: 10-01-2022 End: 10-01-2022 Emergency department patient visit Mak Hilario MD Work Phone: [facility] EMERGENCY DEPT Comment on above: Hematoma (Primary Dx ); Bleeding from wound Start: 09-30-2022 End: 09-30-2022 Evaluation and management of inpatient Radha Meza MD Work Phone: [facility] Special Procedures Comment on above: End stage renal dise ase (HCC) Start: 09-28-2022 Transcribe Orders Radha steven MD Work Phone: [facility] Comment on above: End stage renal dise ase (HCC) (Primary Dx) Start: 08-07-2022 End: 08-07-2022 Subsequent hospital visit by physician Raffy Rojas MD Work Phone: [facility] Comment on above: S/P arteriovenous (A V) graft placement (Primary Dx) Start: 07-17-2022 ambulatory Tevin Hodgson [employer] - IN[employer]UMENT [employer]SEMBLER Work Phone: [facility] Start: 07-17-2022 End: 07-17-2022 Subsequent hospital visit by physician Raffy Rojas MD Work Phone: [facility] Start: 07-10-2022 Telephone encounter Maria R perez MD Work Phone: [facility] Internal Med Start: 07-01-2022 Telephone encounter Raffy smith MD Work Phone: [facility] Comment on above: Surgery Scheduling Start: 06-24-2022 End: 06-24-2022 Office outpatient new 45 minutes Raffy Rojas MD Work Phone: [facility] [place] Comment on above: ESRD (end stage bladimir l disease) (HCC) (Primary Dx) Start: 06-03-2022 ambulatory CARLOS MANUEL Q WANG Facility: [facility] Start: 06-03-2022 End: 06-03-2022 Subsequent hospital visit by physician Us Lugo 1 [employer] [facility] Comment on above: End stage renal dise ase [N18.6] Start: 10-25-2019 End: 10-25-2019 Subsequent hospital visit by physician Jose Antonio Adams Work Phone: [facility] Comment on above: Chronic [...] 12-17-2024 Compatibility each u nit electronic Leticia Estevezntire DO Work Phone: Start: 12-17-2024 End: 12-17-2024 [...] panel Leticia Estevezntire DO Work Phone: Start: 12-15-2024 Glucose quantitative [...] DO Work Phone: Start: 12-14-2024 Antibody screen ELIZABETHDUARTE Jay VIEIRA Comment on above: Performed By: #### L [id number] ####Waredresser: PHILLY FRANCO ([id number])[facility] ([address] Start: 12-14-2024 Blood typing serologic abo Ramonita Garnett GREENKEEPER Start: 12-14-2024 End: 12-14-2024 Comprehensive metabolic panel Leticia Malissa DO Work Phone: Start: 12-14-2024 Blood count complete automated Leticia Malissa DO Work Phone: Start: 12-13-2024 Glucose quantitative blood xcpt reagent strip Leticia Malissa DO Work Phone: Start: 12-13-2024 Radex shoulder compl ete minimum 2 views Ramonita Garnett GREENKEEPER Start: 12-13-2024 Glucose quantitative blood xcpt reagent strip Leticia Malissa DO Work Phone: Start: 12-13-2024 End: 12-13-2024 Glucose quantitative blood xcpt reagent strip Leticia Malsisa DO Work Phone: Start: 12-13-2024 Basic metabolic pane l calcium total Ramonita Garnett NP Start: 12-13-2024 Drug screen quantita tive vancomycin Leticia Malissa DO Work Phone: Start: 12-12-2024 Ct head/brain w/o co ntrast material Ramonita Garnett GREENKEEPER Start: 12-12-2024 End: 12-12-2024 Glucose quantitative blood xcpt reagent strip Leticia Malissa DO Work Phone: Start: 12-12-2024 Glucose quantitative blood xcpt reagent strip Leticia Malissa DO Work Phone: Start: 12-12-2024 Radiologic exam ches t single view Ramonita Garnett GREENKEEPER Start: 12-12-2024 Radiologic exam abdo men 1 view Ramonita Vasiliy Garnett GREENKEEPER Start: 12-12-2024 Bacteria identified in Blood by Culture Radha Kevin DO Work Phone: Start: 12-12-2024 Comprehensive metabo lic panel Andrea Blas MD Work Phone: Start: 12-11-2024 Ct head/brain w/o co ntrast material Radha Paredesmin DO Work Phone: Start: 12-11-2024 Assay of lactate Radha Solis uelvamin DO Work Phone: Start: 12-11-2024 Blood gases any comb ination ph pco2 po2 co2 hco3 Radha Paredesmin DO Work Phone: Start: 12-11-2024 Ecg routine ecg w/le ast 12 lds trcg only w/o i&r Radha Paredesmin DO Work Phone: Start: 12-11-2024 Glucose quantitative blood xcpt reagent strip Radha Kevin DO Work Phone: Start: 12-11-2024 Comprehensive metabo lic panel Andrea Blas MD Work Phone: Start: 12-10-2024 Comprehensive metabo lic panel Johnronda Shepherd DO Work Phone: Start: 12-09-2024 Renal [...] on above: Performed By: #### L [id number] ####Waredresser: PHILLY FRANCO ([phone])[facility] ([facility])[address] [place], [place] [id number] [place] [address] Start: 12-08-2024 Blood typing serologic abo Angelica [...] on above: Performed By: #### L [id number] ####Waredresser: DEANN MCKEE ([id number])[facility] ([facility])[address] [facility] [place] [address] [facility] Start: 11-22-2024 Basic metabolic pane l calcium total Kev Warner MD Work Phone: Start: 11-22-2024 Blood typing serologic abo Kev Warner MD Work Phone: Start: 11-13-2024 Blood count hematocrit Tevin Juárez DISTRICT COMMERCIAL SUPERINTENDENT - INSTRUMENT ASSEMBLER Work Phone: Start: 11-13-2024 Glucose quantitative blood [...] on above: Performed By: #### L [id number] ####Waredresser: PHILLY FRANCO ([id number])[facility] ([facility])[address] [place] [address] Start: 11-11-2024 Basic metabolic pane l calcium total Candy Baiko DO Work Phone: Start: 11-11-2024 Blood typing serologic abo Francisco Javier Somers MD Work Phone: Start: 11-10-2024 Basic metabolic pane l calcium total Candy Baiko DO Work Phone: Start: 11-09-2024 Blood count hematocrit Romain Meadows GREENKEEPER Work Phone: Start: 11-09-2024 Compatibility each u nit electronic Romain Meadows GREENKEEPER Work Phone: Start: 11-09-2024 End: 11-09-2024 TRANSFUSE RED BLOOD CELLS Romain Meadows GREENKEEPER Work Phone: Start: 11-09-2024 Antibody screen LOLI VIEIRA Comment on above: Performed By: #### L [id number] ####Waredresser: PHILLY FRANCO ([phone])[facility] ([facility])[address] [place] [address] Start: 11-09-2024 Basic metabolic pane l calcium [...] Basic metabolic pane l calcium total Candy Denis DO Work Phone: Start: 11-06-2024 Basic metabolic pane l calcium total Candy Denis DO Work Phone: Start: 11-05-2024 Blood count hematocrit Raffy Rojas MD Work Phone: Start: 11-05-2024 End: 11-05-2024 TRANSFUSE RED BLOOD CELLS Raffy Rojas MD Work Phone: Start: 11-05-2024 End: 11-05-2024 REVISION OR REPAIR, AV FISTULA Raffy Rojas MD Work Phone: Start: 11-05-2024 Compatibility each u nit electronic Romain Meadows GREENKEEPER Work Phone: Start: 11-05-2024 End: 11-05-2024 TRANSFUSE RED BLOOD CELLS Romain Meadows GREENKEEPER Work Phone: Start: 11-05-2024 Blood count hematocrit Romain Meadows GREENKEEPER Work Phone: Start: 11-05-2024 Basic metabolic pane l calcium total Candy Denis DO Work Phone: Start: 11-05-2024 Blood typing serologic abo Francisco Javier Somers MD Work Phone: Start: 11-05-2024 Compatibility each u nit electronic Candy Denis DO Work Phone: Start: 11-04-2024 Glucose quantitative blood xcpt reagent strip Candy Donaldsonko DO Work Phone: Start: 11-04-2024 Blood count complete auto&auto difrntl wbc Candy Denis DO Work Phone: Start: 11-04-2024 [...] pane l calcium total Ana M Boyce DISTRICT COMMERCIAL SUPERINTENDENT - INSTRUMENT ASSEMBLER Work Phone: Start: 11-01-2024 Glucose quantitative blood [...] pane l calcium total Ana M Austen DISTRICT COMMERCIAL SUPERINTENDENT - INSTRUMENT ASSEMBLER Work Phone: Start: 11-01-2024 Manual Differential panel - Blood Ana Adelfo Austen DISTRICT COMMERCIAL SUPERINTENDENT - INSTRUMENT ASSEMBLER Work Phone: Start: 11-01-2024 Glucose quantitative blood [...] pane l calcium total Ana M Boyce DISTRICT COMMERCIAL SUPERINTENDENT - INSTRUMENT ASSEMBLER Work Phone: Start: 10-31-2024 Manual Differential panel - Blood Ana M Boyce DISTRICT COMMERCIAL SUPERINTENDENT - INSTRUMENT ASSEMBLER Work Phone: Start: 10-31-2024 Glucose quantitative blood [...] metabolic panel calcium total Ana M Austen DISTRICT COMMERCIAL SUPERINTENDENT - INSTRUMENT ASSEMBLER Work Phone: Start: 10-30-2024 Manual Differential panel - Blood Ana M Austen DISTRICT COMMERCIAL SUPERINTENDENT - INSTRUMENT ASSEMBLER Work Phone: Start: 10-29-2024 Glucose quantitative blood xcpt reagent strip Isai Guillen MD Work Phone: Start: 10-29-2024 Glucose quantitative blood xcpt reagent strip Isai Guillen MD Work Phone: Start: 10-29-2024 Glucose quantitative blood xcpt reagent strip Isai Guillen MD Work Phone: Start: 10-29-2024 Basic metabolic pane l calcium total Ana Emanuel Austen DISTRICT COMMERCIAL SUPERINTENDENT - INSTRUMENT ASSEMBLER Work Phone: Start: 10-29-2024 Manual Differential panel - Blood Ana Emanuel Austen DISTRICT COMMERCIAL SUPERINTENDENT - INSTRUMENT ASSEMBLER Work Phone: Start: 10-29-2024 Glucose quantitative blood [...] metabolic panel calcium total Ana Emanuel Austen SOLOMONN - INSTRUMENT ASSEMBLER Work Phone: Start: 10-28-2024 Manual Differential panel - Blood Ana M Austen DISTRICT COMMERCIAL SUPERINTENDENT - INSTRUMENT ASSEMBLER Work Phone: Start: 10-28-2024 Glucose quantitative blood xcpt reagent strip Isai Guillen MD Work Phone: Start: 10-27-2024 Glucose quantitative blood xcpt reagent strip Isai Guillen MD Work Phone: Start: 10-27-2024 Glucose quantitative blood xcpt reagent strip Isai Guillen MD Work Phone: Start: 10-27-2024 Blood count hematocrit Ana Emanuel Austen DISTRICT COMMERCIAL SUPERINTENDENT - INSTRUMENT ASSEMBLER Work Phone: Start: 10-27-2024 Compatibility each u nit electronic Ana Emanuel Austen DISTRICT COMMERCIAL SUPERINTENDENT - INSTRUMENT ASSEMBLER Work Phone: Start: 10-27-2024 End: 10-27-2024 TRANSFUSE RED BLOOD CELLS Ana Emanuel Nathanael cramer DISTRICT COMMERCIAL SUPERINTENDENT - INSTRUMENT ASSEMBLER Work Phone: Start: 10-27-2024 Blood typing serologic abo Ana Emanuel Austen DISTRICT COMMERCIAL SUPERINTENDENT - INSTRUMENT ASSEMBLER Work Phone: Start: 10-27-2024 Glucose quantitative blood xcpt reagent strip Isai Guillen MD Work Phone: Start: 10-27-2024 Basic metabolic pane l calcium total Ana Emanuel Austen DISTRICT COMMERCIAL SUPERINTENDENT - INSTRUMENT ASSEMBLER Work Phone: Start: 10-27-2024 Manual Differential panel - Blood Ana Emanuel Austen DISTRICT COMMERCIAL SUPERINTENDENT - INSTRUMENT ASSEMBLER Work Phone: Start: 10-27-2024 Glucose quantitative blood [...] Glucose quantitative blood xcpt reagent strip Kaylin Iversonttevie DO Work Phone: Start: 10-25-2024 Basic metabolic pane l calcium total Kaylin Thomas DO Work Phone: Start: 10-25-2024 Manual differential performed [Presence] in Blood Kaylin Thomas DO Work Phone: Start: 10-25-2024 Glucose quantitative blood xcpt reagent strip [facility]lin [facility] Work Phone: Start: 10-24-2024 Drug screen quantita tive vancomycin [facility]lin [facility] Work Phone: Start: 10-24-2024 Glucose quantitative blood xcpt reagent strip [facility]lin [facility] Work Phone: Start: 10-24-2024 End: 10-24-2024 Blood count hematocrit Kaylin [facility] Work Phone: Start: 10-24-2024 AEROBIC AND ANAEROBI C CULTURE WITH STAIN [facility]lin [facility] Work Phone: Start: 10-24-2024 Culture bacterial an y source anaerobic iso&id Kaylin [facility] Work Phone: Start: 10-24-2024 RBC leukocytes reduced Kaylin Iversonticckle Work Phone: Start: 10-24-2024 End: 10-24-2024 TRANSFUSE RED BLOOD CELLS Kaylin [facility] Work Phone: Start: 10-24-2024 End: 10-24-2024 Comprehensive metabolic panel Leandra David [employer] Work Phone: Start: 10-24-2024 Manual differential performed [Presence] in Blood Leandra David [employer] Work Phone: Start: 10-23-2024 Drug screen quantita [...] 6 Hours Per Day BICAKODAK VERA BICAKODAK DO~[id number] Start: 08-20-2024 Transfusion of Nonau tologous Red Blood Cells into Peripheral Vein, Percutaneous Approach BICAKODAK VERA BICAKODAK DO~[id number] Start: 08-17-2024 Extraction of Right Hip Muscle, Open Approach BICAKODAK VERA BICAKODAK DO~[id number] Start: 08-15-2024 Insertion of Infusio n Device into Superior Vena Cava, Percutaneous Approach BICAKODAK VERA BICAKODAK DO~[id number] Start: 08-15-2024 Performance of Urina ry Filtration, Intermittent, Less than 6 Hours Per Day BICAKODAK VERA BICAKODAK DO~[id number] Start: 08-15-2024 Respiratory Ventilat ion, 24-96 Consecutive Hours BICAKODAK VERA BICAKODAK DO~[id number] Start: 08-14-2024 Performance of Cardi ac Output, Single, Manual BICAKODAK VERA BICAKODAK DO~[id number] Start: 07-17-2024 Assay of troponin quantitative Victor [...] Basic metabolic pane l calcium total John EdmarCurtis ReaganMayes DO Work Phone: Start: 03-02-2024 Glucose quantitative blood xcpt reagent strip John EdmarCurtis Mayes DO Work Phone: Start: 03-02-2024 Glucose quantitative blood xcpt reagent strip John EdmarCurtis Mayes DO Work Phone: Start: 03-02-2024 Glucose quantitative blood xcpt reagent strip John EdmarCurtis Mayes DO Work Phone: Start: 03-02-2024 Assay [...] 02-19-2024 Iaadiadoo not otherw ise specified Radha Reggiemin DO Work Phone: Start: 02-19-2024 Comprehensive metabo lic panel Radha Reggiemin DO Work Phone: Start: 02-19-2024 Assay of troponin quantitative Radha Reggiemin DO Work Phone: Start: 02-19-2024 Smr prim [...] Kalina DENG Work Phone: Start: 01-25-2024 Colonoscopy Mejgon Amaris a DO Work Phone: Start: 01-25-2024 Basic metabolic pane l calcium total Mounika Connell DO Work Phone: Start: 01-24-2024 Guidance for emboliz ation of Vessels Leticia Collier MD Work Phone: Start: 01-24-2024 Blood count hematocrit Leticia Collier MD Work Phone: Start: 01-24-2024 Acute gastrointestin al blood loss imaging Mary Martinez DISTRICT COMMERCIAL SUPERINTENDENT - INSTRUMENT ASSEMBLER Work Phone: Start: 01-24-2024 Blood count hematocrit Jessica Murphy DO Work Phone: Start: 01-24-2024 RBC leukocytes reduced Jessica Murphy DO Work Phone: Start: 01-24-2024 End: 01-24-2024 TRANSFUSE RED BLOOD CELLS Jessica lopez DO Work Phone: Start: 01-24-2024 Blood typing serologic abo Jessica Murphy DO Work Phone: Start: 01-24-2024 Basic metabolic pane l calcium total Mounika Leslee Dahianasaqibder DO Work Phone: Start: 01-23-2024 Glucose quantitative blood xcpt reagent strip Ronald Schneider DO Work Phone: Start: 01-23-2024 Basic metabolic pane l calcium total Mounika Lesleeronda Dasilvanyevelyne DO Work Phone: Start: 01-22-2024 Basic metabolic pane l calcium total Mounika Leslee Dahianasaqibevelyne DO Work Phone: Start: 01-22-2024 Hepatitis b [...] 01-21-2024 Basic metabolic panel calcium total Jessica Valdovinosmaggyisiah DO Work Phone: Start: 01-20-2024 Blood count hematocrit Khloe A Dylan DO Work Phone: Start: 01-20-2024 Blood count hematocrit Korey Huang MD Work Phone: Start: 01-20-2024 Blood count hematocrit Korey Huang MD Work Phone: Start: 01-20-2024 Radex forearm 2 views C armando Huang MD Work Phone: Start: 01-20-2024 Basic metabolic pane l calcium total Jessica J NiedzWhereInFaircki DO Work Phone: Start: 01-19-2024 Blood count hematocrit Jessica Courtney NitaliWhereInFaircki DO Work Phone: Start: 01-19-2024 RFA Celiac artery Vi ews W contrast IA Jessica Courtney NiedzWhereInFaircki DO Work Phone: Start: 01-19-2024 Compatibility each [...] Mejgon Z Natasha DO Work Phone: Start: 5 End: 01-19-2024 Comprehensive metabolic panel Mejgon Z Natasha DO Work Phone: Start: 08-09-2023 Renal function panel Andrew Sánchez DISTRICT COMMERCIAL SUPERINTENDENT - INSTRUMENT ASSEMBLER Work Phone: Start: 08-09-2023 Ecg routine ecg w/le ast 12 lds trcg only w/o i&r Samuel Eva DO Work Phone: Start: 03-03-2023 Basic metabolic [...] Fransisco Valdovinos Work Phone: Start: 10-03-2019 CBC [facility] Transcribe Provider Start: 10-03-2019 PROTHROMBIN TIME/PT [facility] Provider Start: 07-24-2019 Us retroperitoneal r eal time w/image complete Alvarado S Bonyo Work Phone: Plan of Treatment Date Care Activity Detail Author Start: 01-24-2034 Screening for malign ant neoplasm of colon [facility] Start: 02-22-2027 Lipid panel [facility] Start: 12-20-2025 Creatinine measurement [facility] Start: 12-20-2025 Potassium measurement [facility] Start: 11-22-2025 Creatinine measurement Creatinine Le yoseph [facility] Start: 11-22-2025 Potassium measurement Potassium Leve l [facility] Start: 11-13-2025 Creatinine measurement Creatinine Le yoseph [facility] Start: 11-13-2025 Potassium measurement Potassium Leve l [facility] Start: 11-11-2025 Creatinine measurement [facility] Start: 11-11-2025 Potassium measurement S [facility] Start: 09-15-2025 Echocardiography Echocardiogram [facility] Start: 09-15-2025 [facility] Start: 09-06-2025 Creatinine measurement Creatinine Le yoseph [facility] Start: 09-06-2025 Potassium measurement Potassium Leve l [facility] Start: 06-09-2025 Screening for malign ant neoplasm of breast [facility] Start: 01-24-2025 Diabetes: Estimated Glomerular Filtration Rate for Kidney Health Diabetes: Estimated Glomerular Filtration Rate for Kidney Health [facility] Start: 12-18-2024 End: 12-18-2024 Patient encounter procedure 12/18/2024 2:30 PM EDT Office Visit [facility] Vascular Surgery [facility] [address] [place] [phone] Raffy Rojas MD [address] [place] [address] [facility] Vascular Surgery [facility] Start: 12-06-2024 End: 12-06-2024 Patient encounter procedure 12/06/2024 11:00 AM EDT Office Visit [facility] [place] [address] [place] [phone] Raffy Rojas MD [address] [place] [address] [facility] [place] Start: 12-04-2024 COVID-19 Vaccine ( season) COVID-19 Vaccine ( season) [facility] Start: 12-04-2024 Influenza vaccination [facility] Start: 12-04-2024 [facility] Start: 11-27-2024 End: 11-27-2024 Patient encounter procedure 11/27/2024 3:30 PM EDT Office Visit [facility] [employer] [facility] [place] [address] [place] [address] Raffy Rojas MD [address] [place], [place] [phone] [facility] [place] Start: 11-22-2024 End: 11-22-2024 ambulatory [facility] [place] Start: 11-22-2024 End: 11-22-2024 Patient encounter procedure 11/22/2024 9:15 AM EDT Office Visit [facility] [employer] [facility] [place] [address] [place] [address] Raffy Rojas MD [address] [place], [place] [phone] [facility] [place] Start: 11-14-2024 End: 12-14-2024 CBC panel - Blood by Automated count CBC Lab Routine Anemia due to other cause, not classified Expected: 11/14/2024 (Approximate), Expires: 12/14/2024 [facility] [employer] Work Phone: Comment on above: Expected: 11/14/2024 (Approximate), Expires: 12/14/2024 Start: 04-05-2024 Medicare Advantage A nnual Wellness Visit Medicare Advantage Annual Wellness Visit [facility] Start: 04-05-2024 [facility] Start: 01-13-2024 Screening for malign ant neoplasm of breast Mammogram [facility] Start: 12-05-2023 COVID-19 Vaccine ( season) COVID-19 Vaccine ( season) [facility] Start: 12-05-2023 COVID-19 Vaccine ( season) COVID-19 Vaccine ( season) [facility] Start: 12-05-2023 Influenza vaccination Influenza Vacc ine (#1) [facility] Start: 12-05-2023 [facility] Start: 07-22-2024 Hepatitis B Vaccines (5 of 5 - Risk Dialysis Recombivax 3-dose series) Hepatitis B Vaccines (5 of 5 - Risk Dialysis Recombivax 3-dose series) [facility] Start: 10-25-2023 [facility] Start: 06-25-2023 End: 06-24-2024 RFA Guidance for atherectomy of AV fistula-- W contrast IV IR fistulagram Imaging Routine End stage renal disease (HCC) Expected: 06/25/2023, Expires: 06/24/2024 [facility] Work Phone: Comment on above: Expected: 06/25/2023 , Expires: 06/24/2024 Start: 04-05-2023 Medicare [employer] A nnual Wellness Visit Medicare Advantage Annual Wellness Visit [facility] Start: 02-22-2023 Lipid panel Lipid Panel [facility] Start: 02-21-2023 Diabetes mellitus screening [facility] Start: 02-21-2023 Hemoglobin A1c measurement Herminia betes: Hemoglobin A1C [facility] Start: 12-04-2022 COVID-19 Vaccine ( season) COVID-19 Vaccine () [facility] Start: 12-04-2022 Influenza vaccination [facility] Start: 08-26-2022 End: 08-26-2022 Patient encounter procedure 08/26/2022 Office Visit Vascular Surgery Raffy Rojas MD [address] [place] [id number] [facility] Start: 08-07-2022 End: 08-07-2022 Admission to same day surgery center 08/07/2022 Surgery Procedural Raffy Rojas MD [address] [place], [place] [phone] LEFT UPPER EXTREMITY ARTERIOVENOUS GRAFT PLACEMENT [08121 (CPT )] [facility] Comment on above: LEFT UPPER EXTREMITY ARTERIOVENOUS GRAFT PLACEMENT [58549 (CPT )] Start: 08-07-2022 End: 08-07-2022 Crtj arven fstl xcp dir arven anast nonautog grf CREATION AV FISTULA WITH NONAUTOGEMOUS GRAFT Dependence on renal dialysis (HCC) End stage renal disease (HCC) 08/07/2022 9:30 AM EDT [facility] Operating Room Start: 08-07-2022 Subsequent hospital visit by physician 08/07/2022 Hospital Encounter Procedural Raffy Rojas MD [address] [place] [id number] [facility] Start: 08-03-2022 End: 08-03-2022 Patient encounter procedure 08/03/2022 Office Visit Vascular Surgery Raffy Rojas MD [address] [place] [phone] [facility] Start: 07-17-2022 End: 07-17-2022 Admission to same day surgery center 07/17/2022 Surgery Procedural Raffy Rojas MD [address] [place] [phone] LEFT UPPER EXTREMITY ARTERIOVENOUS GRAFT PLACEMENT [14949 (CPT )] [facility] Comment on above: LEFT UPPER EXTREMITY ARTERIOVENOUS GRAFT PLACEMENT [57592 (CPT )] Start: 07-17-2022 End: 07-17-2022 Anesthesia consultation 07/17/2022 Anesthesia Event Procedural Mary Wilkinson, DISTRICT COMMERCIAL SUPERINTENDENT - INSTRUMENT ASSEMBLER [address] [place] [address] [facility] Start: 07-17-2022 End: 07-17-2022 Crtj park fstl xcp dir park anast nonautog grf CREATION AV FISTULA WITH NONAUTOGEMOUS GRAFT Dependence on renal dialysis (HCC) End stage renal disease (HCC) 07/17/2022 11:[address] [facility] Operating [facility] Start: 07-17-2022 Subsequent hospital visit by physician 07/17/2022 Hospital Encounter Procedural Raffy Rojas MD [address] [place] [phone] [facility] Start: 07-16-2022 Hepatitis B Vaccines (2 of 2 - CpG 2-dose series) Hepatitis B Vaccines (2 of 2 - CpG 2-dose series) [facility] Start: 05-24-2022 Hemoglobin A1c measurement Herminia betes: Hemoglobin A1C [facility] Start: 04-05-2022 ADVANCE DIRECTIVE DISCUSSION ADVANCE DIRECTIVE DISCUSSION [facility] Start: 04-05-2022 DEPRESSION ASSESSMENT DEPRESSION ASS ESSMENT [facility] Start: 12-04-2021 Influenza vaccination C [facility] Start: 11-28-2021 Screening for malign ant neoplasm of breast Mammogram [facility] Start: 04-30-2021 COVID-19 Vaccine (4 - Booster for Moderna series) COVID-19 Vaccine (4 - Booster for Moderna series) [facility] Start: 04-30-2021 COVID-19 Vaccine (4 - Moderna series) COVID-19 Vaccine (4 - Moderna series) [facility] Start: 10-16-2020 COVID-19 VACCINE (3 - Booster for Moderna series) COVID-19 VACCINE (3 - Booster for Moderna series) [facility] Start: 12-05-2019 Influenza vaccination [place], [place] Start: 09-03-2018 Breast cancer screen Breast cancer s crewatson [place], [place] Start: 2015 ADVANCE DIRECTIVE DISCUSSION ADVANCE DIRECTIVE DISCUSSION [facility] Start: 2015 BONE DENSITY BONE DENSITY [facility] Start: 2015 Pneumococcal 65+ yea rs Vaccine (1 of 1 - PPSV23) Pneumococcal 65+ years Vaccine (1 of 1 - PPSV23) [place], [place] Start: 2015 Pneumococcal Vaccine : 65+ Years (1 of 1 - PCV) Pneumococcal Vaccine: 65+ Years (1 of 1 - PCV) [facility] Start: 2015 PNEUMOVAX AGE 65 AND OVER WITH 5YR LOOKBACK (#1) PNEUMOVAX AGE 65 AND OVER WITH 5YR LOOKBACK (#1) [facility] Start: 2010 HEPATITIS B (1 of 3 - Risk 3-dose series) HEPATITIS B (1 of 3 - Risk 3-dose series) [facility] Start: 2010 RSV High Risk: (Elde rly (60+) or Population) (1 - Risk 60-74 years 1-dose series) RSV High Risk: (Elderly (60+) or Population) (1 - Risk 60-74 years 1-dose series) [facility] Start: 2010 RSV Immunization age d 60 or older (1 - 1-dose 60+ series) RSV Immunization aged 60 or older (1 - 1-dose 60+ series) [facility] Start: 2010 RSV Immunization for Adults (1 - Risk 60-74 years 1-dose series) RSV Immunization for Adults (1 - Risk 60-74 years 1-dose series) [facility] Start: 2010 [facility] Start: 2005 DEXA (modify frequen cy per FRAX score) DEXA (modify frequency per FRAX score) [place], [place] Start: 2000 Colon cancer screen colonoscopy Colon cancer screen colonoscopy [place], [place] Start: 2000 Pneumococcal Vaccine : 50+ Years (1 of 1 - PCV) Pneumococcal Vaccine: 50+ Years (1 of 1 - PCV) [facility] Start: 2000 Shingles Vaccine (1 of 2) Zaman gles Vaccine (1 of 2) [place], [place] Start: 2000 SHINGRIX VACCINE (1 of 2) ZAMAN GRIX VACCINE (1 of 2) [facility] Start: 2000 Tuberculosis screening COLOREC NELLA CANCER SCREENING,SEE MODIFIER [facility] Start: 2000 Zoster Vaccines (1 of 2) Zoste r Vaccines (1 of 2) [facility] Start: 2000 [facility] Start: 1995 COLOGUARD (FIT-DNA) COLOGUARD (FIT-D NA) [facility] Start: 1995 Colonoscopy COLONOSCOPY [facility] Start: 1995 COLORECTAL CANCER SCREENING COLORECTAL CANCER SCREENING [facility] Start: [address] COLONOGRAPHY [facility] Start: 1995 DIABETES SCREEN DIABETES SCREEN [facility] Start: 1995 FECAL OCCULT BLOOD FECAL OCCULT BLOO D [facility] Start: 1995 LIPID SCREEN LIPID SCREEN [facility] Start: 1995 SIGMOIDOSCOPY SIGMOIDOSCOPY [facility] Start: 1990 Lipid screen Lipid screen [place], [place] Start: 1990 Mammography MAMMOGRAM [facility] Start: 1990 Screening for malign ant neoplasm of breast Mammogram [facility] Start: 1972 DTaP/Tdap/Td Vaccine s (1 - Tdap) DTaP/Tdap/Td Vaccines (1 - Tdap) [facility] Start: 1969 DTaP/Tdap/Td vaccine (1 - Tdap) DTaP/Tdap/Td vaccine (1 - Tdap) [place], [place] Start: 1969 DTaP/Tdap/Td Vaccine s (1 - Tdap) DTaP/Tdap/Td Vaccines (1 - Tdap) [facility] Start: 1969 Pneumococcal Vaccine : 50+ Years (1 of 2 - PCV) Pneumococcal Vaccine: 50+ Years (1 of 2 - PCV) [facility] Start: 1969 SHINGRIX VACCINE (1 of 2) ZAMAN GRIX VACCINE (1 of 2) [facility] Start: 1969 Urine microalbumin profile DTAP,TDAP ,TD (1 - Tdap) [facility] Start: 1969 Zoster Vaccines (1 of 2) Zoste r Vaccines (1 of 2) [facility] Start: 1969 [facility] Start: 1968 Diabetes mellitus screening Diabetes Screening [facility] Start: 1968 Diabetes: Urine Albumin-Creatinine Ratio for Kidney Health Diabetes: Urine Albumin-Creatinine Ratio for Kidney Health [facility] Start: 1968 HEPATITIS C SCREENING HEPATITIS C [facility] Start: 1968 Hepatitis C screening Hepatitis C [facility] Start: 1962 Depression Monitoring Depression Mon itoring [facility] Start: 1962 Depression Screening Depression Scre ening [facility] Start: 1962 [facility] Start: 1960 Diabetic foot examination Diabetes: Foot Exam [facility] Start: 1960 Glaucoma screening Diabetes: R etinopathy Screening [facility] Start: 1960 Preventive dental service Diabetes: Dental Exam [facility] Start: 1956 Pneumococcal Vaccine : 65+ Years (1 - PCV) Pneumococcal Vaccine: 65+ Years (1 - PCV) [facility] Start: 1956 Pneumococcal Vaccine : 65+ Years (1 of 2 - PCV) Pneumococcal Vaccine: 65+ Years (1 of 2 - PCV) [facility] Start: 1956 PNEUMOCOCCAL: 65+ (1 - PCV) PNEUMOCOCCAL: 65+ (1 - PCV) [facility] Start: 1951 HEPATITIS A (1 of 2 - Risk 2-dose series) HEPATITIS A (1 of 2 - Risk 2-dose series) [facility] Start: 1950 Echocardiography Echocardiogram [facility] Start: 1950 Hepatitis C screen Hepatitis C [place], [place] Start: 1950 Lipid panel Lipid Panel [facility] Start: 1950 Medicare Advantage A nnual Wellness Visit (AWV) Medicare Advantage Annual Wellness Visit (AWV) [facility] Start: 1950 Medicare Annual Well ness Visit Medicare Annual Wellness Visit (AWV) [facility] Start: 1950 Screening for malign ant neoplasm of colon [facility] Start: 1950 Screening for osteoporosis [facility] Bacteria identified in Blood by Culture [facility] End: 02-19-2024 Bacteria identified in Lower respiratory specimen by Aerobe culture [facility] Comment on above: Once (Lab) for 1 Occ urrences starting 02/19/2024 until 02/19/2024 Basic metabolic 2000 panel - Serum or Plasma Basic metabolic panel Lab Routine Daily (Lab) until discontinued starting 08/31/2024, 5 completed [facility] Service Area Work Phone: Comment on above: Daily (Lab) until di scontinued starting 08/31/2024, 5 completed End: 09-07-2024 CBC panel - Blood by Automated count [facility] Work Phone: Comment on above: Morning draw (Lab) f or 3 Days starting 09/05/2024 until 09/07/2024, 1 completed Morning draw (Lab) f or 3 Occurrences starting 09/05/2024 until 09/07/2024 End: 08-31-2024 Consult to Interventional Radiology Consult to Interventional Radiology Imaging STAT Once for 1 Occurrences starting 08/31/2024 until 08/31/2024 [facility] Work Phone: Comment on above: Once for 1 Occurrenc es starting 08/31/2024 until 08/31/2024 ECG 12 lead ECG 12 lead CV E CG STAT 08/09/2023 4:05 PM EDT [facility] Work Phone: Electrocardiogram, 1 2-lead PRN ACS symptoms Electrocardiogram, 12-lead PRN ACS symptoms ECG Routine As needed until discontinued starting 08/31/2024 [facility] Work Phone: Comment on above: As needed until disc ontinued starting 08/31/2024 End: 12-13-2024 Erythrocyte sedimentation rate [facility] Work Phone: End: 02-19-2024 Hemodialysis Hemodialysis inpatient 3 Hours Dialysis Routine Once for 1 Occurrences starting 02/19/2024 until 02/19/2024 [facility] Work Phone: Comment on above: Once for 1 Occurrenc es starting 02/19/2024 until 02/19/2024 End: 08-31-2024 Hemodialysis Hemodialysis inpatient 3.5 Hours Dialysis Routine Once for 1 Occurrences starting 08/31/2024 until 08/31/2024 [facility] Service Area Work Phone: Comment on above: Once for 1 Occurrenc es starting 08/31/2024 until 08/31/2024 End: 09-02-2024 Hemodialysis Hemodialysis inpatient 3.5 Hours Dialysis Routine Once for 1 Occurrences starting 09/02/2024 until 09/02/2024 [facility] Work Phone: Comment on above: Once for 1 Occurrenc es starting 09/02/2024 until 09/02/2024 End: 09-05-2024 Hemodialysis Hemodialysis inpatient 3.5 Hours Dialysis Routine Once for 1 Occurrences starting 09/05/2024 until 09/05/2024 [facility] Service Area Work Phone: Comment on above: Once for 1 Occurrenc es starting 09/05/2024 until 09/05/2024 End: 09-07-2024 Hemodialysis Hemodialysis inpatient 3.5 Hours Dialysis Routine Once for 1 Occurrences starting 09/07/2024 until 09/07/2024 [facility] Service Area Work Phone: Comment on above: Once for 1 Occurrenc es starting 09/07/2024 until 09/07/2024 End: 09-07-2024 Renal function 2000 panel - Serum or Plasma Renal Function Panel Lab Routine Morning draw (Lab) for 3 Occurrences starting 09/05/2024 until 09/07/2024, 2 completed [facility] Work Phone: Comment on above: Morning draw (Lab) f or 3 Occurrences starting 09/05/2024 until 09/07/2024, 2 completed SURGICAL PATHOLOGY SURGICAL PATH OLOGY Lab Routine 10/25/2019 [facility] Immunizations Immunization Date Immunization Notes Care Provider Fa cility 01-03-2024 influenza virus vaccine, unspecified formulation CHAPARRO Moore MD Work Phone: [place] 01-16-2023 influenza virus vaccine, unspecified formulation Brown Kaur DO Work Phone: [place] 08-21-2020 Moderna SARS-CoV-2 Vaccination Raffy Rojas MD Work Phone: [place] 07-24-2020 Moderna SARS-CoV-2 Vaccination Raffy Rojas MD Work Phone: [place] NEGATED: Highlighted row has not occurred!03-03-2024 Seasonal trivalent influenza vaccine, adjuvanted, preservative free Marcus Ragland DO Work Phone: [place] Comment on above: Deferred: Patient Re fused - pt states she alread had one Payers Date Payer Category Payer Self-pay 2023 Medicare (Managed Care) [employer] [id number] 2023 Medicare HMO [id number] 2022 Unknown [id number] 2021 Medicare [id number] 2019 Medicare UHC AARP MEDICAR E [facility] MEDICARE HMO [id number] 2019-Present HMO [id number] 2018 Private Health Insurance [id number] 1950 Unknown [id number]. 2.598 1950 Unknown [id number] 2.16.840.1.448585.3.579. 2.598 1950 Unknown [id number] 2.16.840.1.932336.3.579. 2.598 1950 Unknown [id number] 2.16.840.1.384898.3.579. 2.1245 Unknown [id number] 2.16.840.1.777623.3.579. 2.462 Unknown [id number] 2.16.840.1.676140.3.579. 2.462 Unknown [id number] 2.16.840.1.156398.3.579. 2.462 Unknown [id number] 2.16.840.1.011957.3.579. 2.462 Unknown [id number] 2.16.840.1.856220.3.579. 2.462 Unknown [id number] 2.16.840.1.442023.3.579. 2.462 Unknown [id number] 2.16.840.1.368984.3.579. 2.462 Unknown [id number] 2.16.840.1.786614.3.579. 2.462 Unknown [id number] 2.16.840.1.739269.3.579. 2.462 Unknown [id number] 2.16.840.1.034946.3.579. 2.462 Unknown [id number] 2.16.840.1.685073.3.579. 2.462 Social History Date Type Detail [facility] Start: 1950 [facility] Exposure to SARS-CoV -2 (event) Unable to assess [facility] Start: 06-14-2022 End: 08-31-2024 Exposure to SARS-CoV-2 (event) Not sure [facility] Tobacco smoking stat [facility] Tobacco smoking consumption unknown [facility] Start: 02-22-2022 End: 08-31-2024 Tobacco smoking status AKIS Never smoked tobacco [facility] Start: 02-22-2022 End: 08-31-2024 Tobacco use and exposure Smokeless tobacco non-user [facility] Start: 06-24-2022 End: 12-06-2024 Alcohol intake Current drinker of alcohol (finding) [facility] Start: 06-24-2022 End: 12-09-2024 Alcohol intake [facility] Start: 02-22-2022 History SDOH Alcohol Frequency 5 [facility] Start: 02-22-2022 History SDOH Alcohol Std Drinks 1 [facility] Start: 02-22-2022 End: 08-07-2022 History SDOH IPV Fear 2 [facility] Start: 07-10-2022 Alcohol Comment weekly [facility] Start: 08-07-2022 End: 12-09-2024 Humiliation, Afraid, Rape, and Kick questionnaire [HARK] [facility] Within the last year , have you been afraid of your partner or ex-partner? No [facility] How often to you hav e a drink containing alcohol? 4 or more times a week [facility] How many standard dr inks containing alcohol do you have on a typical day? 1 or 2 [facility] How often do you hav e 6 or more drinks on 1 occasion? Never [facility] In the past 12 month s, has lack of transportation kept you from medical appointments or from getting medications? No [facility] Start: 11-03-2021 Sex Female (finding) [facility] How often to you hav e a drink containing alcohol? Monthly or less [facility] How often to you hav e a drink containing alcohol? 2-3 time sa week [facility] (I/We) worried jeanne er (my/our) food would run out before (I/we) got money to buy more. Never true [facility] How often do you hav e 6 or more drinks on 1 occasion? Less than monthly [facility] Do you belong to any clubs or organizations such as quaker groups, unions, fraternal or athletic groups, or school groups? Yes [facility] Are you now , , , , never or living with a partner? [facility] Do you feel stress - tense, restless, nervous, or anxious, or unable to sleep at night because your mind is troubled all the time - these days [OSQ] Very much [facility] Medical Equipment Procedure Code Equipment Code Equipment Origin al Text Equipment Identifier Dates [id number] Start: 08-07-2022 [id number] Start: 01-24-2024 Functional Status Date Assessment Result Facility 10-31-2024 Total score [AUDIT-C] [facility] 08-31-2024 Reva - suicide s everity rating scale screener - recent [C-SSRS] [facility] Work Phone: 08-31-2024 Total score [AUDIT-C] 1 09/01/19 12:15 AM Fe Muñoz RN [facility] Work Phone: 08-31-2024 Patient Health Quest ionnaire 2 item (PHQ-2) [Reported] [facility] Work Phone: [facility] Work Phone: [facility] Clinical Notes 12-31-2020 to 12-28-2024 Casi Rodgers RN - 12/28/2024 10:26 AM Kay Rodgers RN - 12/28/2024 10:26 AM Karen Kaur DO - 12/28/2024 9:57 AM Kristy Saleh Z Natasha, DO - 12/28/2024 9:57 AM EDT Note Date & Type Note Facility 12-28-2024 Emergency department Note Called [facility] and spoke with nurse Tyra at [...] as report. No signs of injury noted. [facility] 12-28-2024 Emergency department Note Called [facility] and spoke with nurse Tyra at [...] Patient presents with Altered Mental Status Per [place] Latisha, pt was altered last night. Sent [...] daily as needed (first line for agitation, [place] PRN Seroquel for ONLY if danger to self/others/treatment). sevelamer (Renagel) 800 MG tablet Take 800 mg by mouth 3 times daily (with meals). Swallow tablet whole; do not crush, break, or chew. Thiamine HCl (vitamin B-1) 250 MG tablet Take 250 mg by mouth daily. ALLERGIES Patient has no known allergies. FAMILY HISTORY Family History[3] SOCIAL HISTORY Social History[4] SCREENINGS Sanborn Coma Scale Best Eye Response: Spontaneous Best Verbal Response: Oriented Best Motor Response: Follows commands Sanborn Coma Scale Score: 15 PHYSICAL EXAM ED [...] Glucose 80 Narrative: Performed by: Santa Kirk, [address] [place] [address] [place] [address] CLIA ID: [id number] All other labs were within normal range [...] AM PATIENT REFERRED TO: Roxie Spain [address] [place] [address] DISCHARGE MEDICATIONS: Current Discharge Medication List [...] Date Chronic kidney disease (CKD) Hemodialysis patient ([facility]/HCC) (HCC) Wednesday, , Wednesday History of blood transfusion 02/27/2022 Hypertension Seizure ([facility]) Developed seizure-like activity on 02/24 during hospital admission [2] Past Surgical History: Procedure Laterality Date AV FISTULA PLACEMENT Left 08/07/2022 COLONOSCOPY N/A 01/25/2024 Performed by Chrissy Gilman MD at [facility] ENDOSCOPY IR CVC TUNNELED DIALYSIS CATHETER PLACEMENT 02/27/2022 IR CVC TUNNELED CATHETER PLACEMENT 02/27/[address] [facility] PROC[facility] IR EMBOLIZATION 01/24/2024 IR EMBOLIZATION 01/24/[address] [facility] VASCULAR SURGERY Left 11/02/2024 EXCISION [...] 10 min Stress: Stress Concern Present (12/09/2024) Citizen Of [place] [employer] - Occupational Stress Questionnaire Feeling of Stress : Very much Social Connections: Moderately Integrated (12/09/2024) Social Connection and Isolation Panel [NHANES] Frequency of Communication with Friends and Family: More than three times a week Frequency of Social Gatherings with Friends and Family: Three times a week Attends Latter Day Services: 1 to 4 times per year [...] DO 12/28/24 1027 documented in this encounter [facility] 12-28-2024 Hospital Discharge instructions Brown Kaur DO - 12/28/2024 10:20 AM EDT Schedule an appointment to follow-up with your primary care physician for evaluation of your confusion at night. Return to the ER for fevers, chest pain, urinary symptoms or worsening confusion. documented in this encounter [facility] 12-28-2024 Physician Emergency department Note EMERGENCY DEPARTMENT ENCOUNTER Pt Name: Apoorva Gonzalez Birthdate 1950 Date of evaluation: 12/28/2024 ED Provider: Brown Kaur DO CHIEF COMPLAINT Chief Complaint Patient presents with Altered Mental Status Per [place] Latisha pt was altered last night. Sent [...] daily as needed (first line for agitation, [place] PRN Seroquel for ONLY if danger to self/others/treatment). sevelamer (Renagel) 800 MG tablet Take 800 mg by mouth 3 times daily (with meals). Swallow tablet whole; do not crush, break, or chew. Thiamine HCl (vitamin B-1) 250 MG tablet Take 250 mg by mouth daily. ALLERGIES Patient has no known allergies. FAMILY HISTORY Family History[3] SOCIAL HISTORY Social History[4] SCREENINGS Sanborn Coma Scale Best Eye Response: Spontaneous Best [...] Glucose 80 Narrative: Performed by: Santa Kirk, [address] [place] [address] CLIA ID: [id number] All other labs were within normal range [...] AM PATIENT REFERRED TO: Roxie Spain [address] [facility] [place] [address] DISCHARGE MEDICATIONS: Current Discharge Medication List [...] (CKD) Hemodialysis patient (CMS/HCC) ([facility]) Wednesday, , Wednesday History of blood transfusion 02/27/2022 Hypertension Seizure ([facility]) Developed seizure-like activity on 02/24 during hospital admission [2] Past Surgical History: Procedure Laterality Date AV FISTULA PLACEMENT Left 08/07/2022 COLONOSCOPY N/A 01/25/2024 Performed by Chrissy Gilman MD at [facility]OSCOPY IR CVC TUNNELED DIALYSIS CATHETER PLACEMENT 02/27/2022 IR CVC TUNNELED CATHETER PLACEMENT 02/27/[address] [facility] IR EMBOLIZATION 01/24/2024 IR EMBOLIZATION 01/24/[address] [facility] VASCULAR SURGERY Left 11/02/2024 EXCISION [...] 10 min Stress: Stress Concern Present (12/09/2024) Citizen Of [place] [employer] - Occupational Stress Questionnaire Feeling of Stress : Very much Social Connections: Moderately Integrated (12/09/2024) Social Connection and Isolation Panel [NHANES] Frequency of Communication with Friends and Family: More than three times a week Frequency of Social Gatherings with Friends and Family: Three times a week Attends Latter Day Services: 1 to 4 times per year [...] Year: No Brown Kaur DO 12/28/24 1027 [facility] 12-20-2024 Nurse Note Attempted to call report to [place] [facility] [place]. No answer. Discharge order placed. IVS removed. Transport here to take pt to [facility]. Patient Name: Apoorva Gonzalez Patient : 1950 Acct: [id number] Date of Admission: 12/08/2024 Room/Bed: [facility] A Code Status: DNR-CCA [...] - Before each treatment: Dialysis Machine No.: [id number] RO Machine Number: [id number] Dialyzer Lot No.: [id number] Tubing Lot Number: [id number] All Connections Secure: Yes Venous Parameters Set: Yes Arterial Parameters Set: Yes NS Bag: Yes Saline Line Double Clamped: Yes Dialyzer: Nipro Prime Volume (mL): 200 mL RO Machine Number: [id number] RO Machine Log Sheet Completed: Yes Machine Alarm Self Test: Passed, Completed (1410) (12/20/24 1410) Air Foam Detector: Tested, Proper Function Extracorporeal Circuit Tested for Integrity: Yes Machine Conductivity: 13.7 Manual Conductivity: 13.6 Manual Ph: 7.2 Bleach Test (Neg): Yes Bath Temperature: 36 C (96.8 F) Conductivity Meter Serial #: [id number] Machine Functioning Alarm Free? Yes Dialysis Bath: K+ (Potassium): 3 Ca+ (Calcium): 2.5 Na+ (Sodium): 135 HCO3 (Bicarb): 35 Bicarbonate Concentrate Lot No.: [id number] Acid Concentrate Lot No.: [id number] Chlorine Testing - Before each treatment and every 4 hours: Time On: 1439 Time Off: 173 Treatment Goal: 2L Weight Height: 164 cm [...] sidewalk curb, initial encounter Moderate malnutrition (CMS/HCC) ([facility]) [3] Wound Care consulted for Pressure Injury Prevention. Pt's Arnol score= 14 on 12/18/2024 Pt in chair for assessment. Pt currently followed by Wound GREENKEEPER group for wound to Left buttock stage 3 pressure injury. For Left buttock stage 3 pressure injury wound assessment and treatment plan, please see Wound/Ostomy GREENKEEPER progress notes. Pt's pressure points assessed: Pt's [...] and applied. Prevention Measures in place, including: [place] sheet with pillows/wedges (in place), Bilateral foam heel protectors (obtained for pt and applied to pt), Heels elevated off chair on pillows, Bilateral Elbows (off loaded on pillow), Sacral foam (NA see Wound Care GREENKEEPER treatment plan), Upper Spine foam (obtained and [...] in place. PT/OT consult in place. D/W protection consultant skin assessment, preventions, and interventions implemented. Will continue to follow pt. Please Voicera for any questions or concerns. DEWAYNE Lozano, RN Patient Name: Apoorva Gonzalez Patient : 1950 Acct: [id number] Date of Admission: 12/08/2024 Room/Bed: [facility] A Code Status: DNR-CCA [...] 12/18/2024 0420 CREATININE 3.46 (H) 12/18/2024 0420 CALCIUM 7.3 (L) 12/18/2024 0420 PHOS 2.3 12/14/2024 0240 IV Drips and Rate/Dose Continuous Meds[3] Safety - Before each treatment: Dialysis Machine No.: [id number] RO Machine Number: [id number] Dialyzer Lot No.: [id number] Tubing Lot Number: [id number] All Connections Secure: Yes Venous Parameters Set: Yes Arterial Parameters Set: Yes NS Bag: Yes Saline Line Double Clamped: Yes Dialyzer: Nipro Prime Volume (mL): 200 mL RO Machine Number: [id number] RO Machine Log Sheet Completed: Yes Machine Alarm Self Test: Completed, Passed (at 1455) (12/18/24 1500) Air Foam Detector: Tested, Proper Function, pH Reading Extracorporeal Circuit Tested for Integrity: Yes Machine Conductivity: 13.7 Manual Conductivity: 13.8 Manual Ph: 7.2 Bleach Test (Neg): Yes (water check negative at 1615) Bath Temperature: 36 C (96.8 F) Conductivity Meter Serial #: [id number] Machine Functioning Alarm Free? Yes Dialysis Bath: K+ (Potassium): 3 Ca+ (Calcium): 2.5 Na+ (Sodium): 135 HCO3 (Bicarb): 35 Bicarbonate Concentrate Lot No.: [id number] Acid Concentrate Lot No.: [id number] Chlorine Testing - Before each treatment and [...] ICU is unable to place line today. WATERMELON INSPECTOR put 18g in upper arm to attempt [...] to the issues with getting access/blood. Messaged curriculum consultant Nany OWEN regarding not being able to [...] specimen contaminated and recommended repeat H&H. Messaged curriculum consultant Nany OWEN about critical. Per GREENKEEPER repeat H&H ordered for morning, no transfusion [...] Name: Apoorva Gonzalez Patient : 1950 Acct: [id number] Date of Admission: 12/08/2024 Room/Bed: [facility] A Code Status: DNR-CCA [...] - Before each treatment: Dialysis Machine No.: [id number] RO Machine Number: [id number] Dialyzer Lot No.: [id number] Tubing Lot Number: [id number] All Connections Secure: Yes Venous Parameters Set: Yes Arterial Parameters Set: Yes NS Bag: Yes Saline Line Double Clamped: Yes Dialyzer: Nipro Prime Volume (mL): 200 mL RO Machine Number: [id number] RO Machine Log Sheet Completed: Yes Machine [...] HCO3 (Bicarb): 35 Bicarbonate Concentrate Lot No.: [id number] Acid Concentrate Lot No.: [id number] Chlorine Testing - Before each treatment and [...] Name: Apoorva Gonzalez Patient : 1950 Acct: [id number] Date of Admission: 12/08/2024 Room/Bed: [facility] A Code Status: DNR-CCA [...] 13.1 (H) 12/14/2024 0240 HGB 7.5 (L) 12/14/2024239 HGB 9.3 12/11/2024 2030 HCT 23.6 (L) 12/14/2024 0240 PLT 305 12/14/2024 0240 NA 130 (L) 12/14/2024 024 K 3.7 12/14/20240 CL 96 (L) 12/14/2024 0240 CO2 25 12/14/2024 0240 BUN 26 (H) 12/14/20240 CREATININE 4.37 (H) 12/14/2024 024 CALCIUM 7.5 (L) 12/14/2024239 PHOS 2.3 12/14/2024 0240 Lab Results Component [...] - Before each treatment: Dialysis Machine No.: [id number] Machine Number: [id number] Dialyzer Lot No.: [id number] Machine Log Sheet Completed: Yes Machine Alarm Self Test: Completed, Passed (12/14/2435) Air Foam Detector: Tested, Proper Function Extracorporeal Circuit Tested for Integrity: Yes (test complete at 932) Machine Conductivity: 13.7 Manual Conductivity: 13.6 Bicarbonate Concentrate Lot No.: [id number] Acid Concentrate Lot No.: [id number] Manual Ph: 7.4 Bleach Test (Neg): Yes Bath Temperature: 36 C (96.8 F) Tubing Lot Number: [id number] Conductivity Meter Serial #: [id number] All Connections Secure: Yes Arterial Parameters Set: [...] to be in no distress, UF removed 2240 12/14/24 1242 200 mL/min -- -- -- -- [...] Name: Apoorva Gonzalez Patient : 1950 Acct: [id number] Date of Admission: 12/08/2024 Room/Bed: [facility] A Code Status: DNR-CCA [...] WBC 11.5 (H) 12/12/2024102 HGB 8.0 (L) 12/12/2024 010 HGB 9.3 12/11/2024 2030 HCT 24.8 (L) 12/12/2024102 PLT 332 12/12/20243 NA 137 12/12/2024 0103 K 4.1 12/12/2024 0103 CL 100 12/12/2024 0103 CO2 26 12/12/2024 010 BUN 38 (H) 12/12/2024 010 CREATININE 5.60 (H) 12/12/2024102 CALCIUM 7.8 (L) 12/12/2024102 PHOS 1.7 (L) 12/09/2024 1023 IV Drips and Rate/Dose Continuous Meds[3] Safety - Before each treatment: Dialysis Machine No.: [id number] RO Machine Number: [id number] Dialyzer Lot No.: [id number] Tubing Lot Number: [id number] All Connections Secure: Yes Venous Parameters Set: Yes Arterial Parameters Set: Yes NS Bag: Yes Saline Line Double Clamped: Yes Dialyzer: Nipro Prime Volume (mL): 200 mL RO Machine Number: [id number] RO Machine Log Sheet Completed: Yes Machine Alarm Self Test: Completed, Passed (12/12/24 1445) Air Foam Detector: Tested, Proper Function, pH Reading Extracorporeal Circuit Tested for Integrity: Yes Machine Conductivity: 13.5 Manual Conductivity: 13.6 Manual Ph: 7.2 Bleach Test (Neg): Yes Bath Temperature: 36 C (96.8 F) Conductivity Meter Serial #: [id number] Machine Functioning Alarm Free? Yes Dialysis Bath: K+ (Potassium): 3 Ca+ (Calcium): 2.5 Na+ (Sodium): 135 HCO3 (Bicarb): 35 Bicarbonate Concentrate Lot No.: [id number] Acid Concentrate Lot No.: [id number] Chlorine Testing - Before each treatment and [...] see media tab. Consult placed to wound GREENKEEPER group. Pt turned to left side at end of visit. Prevention Measures in place, including: [place] sheet with pillows/wedges, Foam heel protectors (applied), [...] being unable to answer MRI questions. Messaged curriculum consultant for order for chest xray and KUB. This rn and pharmacist in charge attempted to get blood cultures, unable to get. Lactic was obtained and sent. Called and left for rapid to see if they can obtain blood cultures. Dr Kevin made aware that at this time blood cultures could not be drawn. Notified curriculum consultant Rishi HART of ABG results. Order to [...] states [facility] discharge documented in this encounter [facility] 12-20-2024 Miscellaneous Notes Transportation confirmed for 630. Called and spoke to brother Deshawn with update on time of discharge. RN and community support professional notified via secure chat. Discharge med list transmitted to [facility] via [facility] per TCC request. Confirmed pickup time of 6:30pm on 12/20/24 by transport [employer] Moody Harman at phone number [phone]. Location of facility drop off is [facility]. Facility notified via CareFli[facility], TCC notified on secure chat. Discharge order noted in epic. [facility] tasked to set up cot transport for return to [facility]. Palliative Care Interdisciplinary Team Note: Diagnosis: [...] Any Medications Nursing: Decrease Fall Risk and Correction Care Social Work: No Unmet Needs Spiritual Care: No Unmet Needs Pharmacy: No Unmet Needs Psychology/Psychiatry: No Unmet Needs Care Management Progress Note Short Medical why still here: Chart reviewed. MRI under sedation today. +IV abx for discitis, ID following. Patient received 3U PRBC yesterday for Hgb 4.1 2/2 rectus sheath hematoma. Palliative care following. [facility] Planned Discharge Disposition: [facility] Facility Barriers/Today we still Wait: Clinical stability, [...] Wednesday. Current discharge plan is return to [facility] once stable. Planned Discharge Disposition: [facility] Facility Barriers/Today we still Wait: Clinical stability, [...] brother-Deshawn. He states received recent information from [facility] that patient may be over assets. He stated he shared this information with the social work supervisor at [facility]. [employer] did confirm that is the best person [...] with further concerns. Return Ref[facility] request. Await review and response regarding ability to accept. TCC notified. Care Managment Initial Assessment Date: 12/12/2024 Patient Name: Apoorva Gonzalez : 1950 Patient Information Source of Information: Patient Security And Compliance Analyst Name/Contact Information: GENET Atkins, 05/07 patient lethargic Cognition/Language: Impaired Permission given to speak with patient dealer compliance representative/caregiver as indicated: Yes Confirmation of Payer [...] Living Arrangements Facility[facility] Facility Name: [facility] Plan to Return: Yes Lives with: [...] ECF Discharge Planning Actions: Continue to follow, [facility] Facility referral indicated [place] of choice: [place] of choice discussed (choice list not indicated; patient to return to ECF) Patient's Choice Rights and [employer] and Collaborative Relationships Disclosed as Indicated for Post-Acute Care: Yes Interdisciplinary Team Engagement: Social Work Referral for: Additional Information: Introduced self and role to patient hamleterDeshawn POA 2/ patient lethargic. Patient admitted with fall, electrolyte imbalances (HD patient). +IV abx for possible discitis. MRI pending. Nephro, Geriatrics consulted. Brother confirmed patient is from [facility]. She is assist with transfer to [...] of blood components. documented in this encounter [facility] 12-20-2024 Note [facility] 12-20-2024 Hospital course Narrative Hospitalist Discharge [...] outpatient. Seen by geriatrics and nephrology as lead consultant in hospital admission. The patient is [...] daily as needed (first line for agitation, [place] PRN Seroquel for ONLY if danger to [...] Recommended Follow-up: [facility] [address] [facility] [id number] Victor Manuel Benito MD [address] [facility] [address] Schedule an appointment as soon as possible for a visit As needed, neck pain Roxie Judit [address] [place] [address] Schedule an appointment as soon as possible for a visit post hospital follow up Complexity of Follow up: [] Moderate Complexity: follow up within 7-14 calendar days (90344) [x] Severe Complexity: follow up within 7 calendar days (34078) Follow up Testing, Pending results or Referrals [...] MD Division of Hospitalist Medicine Inpatient Medical Services/[facility] 12/20/2024 [1] Past Medical History: Diagnosis Date Chronic kidney disease (CKD) Hemodialysis patient ([facility]/HCC) (HCC) Wednesday, , Wednesday History of blood transfusion 02/27/2022 Hypertension Seizure ([facility]) Developed seizure-like activity on 02/24 during hospital admission documented in this encounter [facility] 12-20-2024 History of Present illness [...] any questions or concerns Pipe Soto MD [facility] Geriatric Medicine Inpatient Consult Service Admission [...] for pain --QTc= 451 ms on 12/11/24 --[place] PRN Seroquel for ONLY if danger to [...] PT/OT evaluation --[facility] --Vitamin D 60 --Check orthostatic vital signs as able --Scrap Drop Crane Operator- supplements ordered BID Acute pain due [...] level 11.3 -As a new medication with GLUE SPECIALTY SUPERVISOR activity, sertraline may be a contributor to encephalopathy. Now discontinued -Continue thiamine supplementation Plan discussed with RN. Follow-up: will follow with you Subjective Chief Complaint: fall Geriatrics consulted for fall HPI- The patient is known to me. 74 y.o. year-old female admitted to acute care from [facility] for fall on 12/08. Patient reportedly [...] 0.83 12/13/2024 Lab Results Component Value Date [id number] 1,419 (H) 12/13/2024 Lab Results Component Value [...] q8h, Radha Kevin, DO, 1,000 mg at 12/20/24 0934 alteplase [...] John Benitez Rishi, DO, 5,000 Units at 12/20/24 0847 dextrose [...] mg, 5 mg, Oral, Nightly PRN, Eileen M Dakota, DISTRICT COMMERCIAL SUPERINTENDENT - INSTRUMENT ASSEMBLER, 5 mg at 12/15/242055 naloxone (Narcan) injection [...] mg, Oral, BID PRN, Eileen Adelfo Dakota, DISTRICT COMMERCIAL SUPERINTENDENT - INSTRUMENT ASSEMBLER sodium chloride 0.9 % infusion, 5-250 mL/hr, [...] this interval not displayed. BMP: Recent Labs 12/18/2441912/19/247 12/20/24 0017 NA 128* 135* 134* K [...] QT Interval 360 QTC Interval 451 P [place] 61 QRS [place] 20 T Wave [place] 19 MS Interval 121 Impression Sinus rhythm Probable LVH [...] MD Division of Hospitalist Medicine Inpatient Medical Services/[facility] [1] Past Medical History: Diagnosis Date Chronic kidney disease (CKD) Hemodialysis patient ([facility]) (HCC) Wednesday, , Wednesday History of [...] mg, 500 mg, IntraVENous, Daily, Jeane Carlson, DISTRICT COMMERCIAL SUPERINTENDENT - INSTRUMENT ASSEMBLER, Stopped at 12/19/24 1145 Lidocaine 4 % patch 1 patch, 1 patch, TransDERmal, Daily, Radha Kuzmin, DO melatonin tablet 5 mg, 5 mg, Oral, Nightly PRN, Eileen Duncan APRN - INSTRUMENT ASSEMBLER, 5 mg at 12/15/242055 naloxone (Narcan) injection [...] TID, Leticia Leonardo DO, Stopped at 12/19/24 9707 [3] Past Medical History: Diagnosis Date Chronic [...] that within the past year between 105-112#.) [place] Body Weight (lbs) (Calculated): 123 lbs [place] Body Weight (Kg) (Calculated): 56 kg % [place] Body Weight (Calculated): 94.6 % BMI (kg/m2) [...] Alexus Denney RD Contact: Secure chat or *[phone] Orthopedic Surgery Progress Note Orthopedic surgery paged regarding patient ability to perform spine exam. On evaluation, patient is seen resting in bedside chair. Patient becomes frustrated during encounter and states "isn't it late?" Discussed with patient it is 12:00PM and that this provider presented for spine exam. Patient refuses exam, and refuses to answer orientation questions. Please page ortho resident curriculum consultant if/when patient mentation improves so that a formal spine exam may be performed. Orthopaedic surgery will sign off. Please page curriculum consultant orthopaedic resident for questions or concerns. Images from the original note were not included. OCCUPATIONAL THERAPY [facility] Initial Evaluation Name/MRN: Apoorva Gonzalez ([id number]) Evaluation Date: 12/19/2024 Date of : 1950 Admission Date: 12/08/2024 8:06 PM Age: 74 y.o. Room/Bed: [facility] A Discharge Recommendation: [facility] Facility Other: Continue to assess Assessment IMPRESSION: [...] Problem List Diagnosis Date Noted Moderate malnutrition ([facility]/HCC) ([facility]) 12/14/2024 Fall, initial encounter 12/09/2024 Fall (on)(from) sidewalk curb, initial encounter 12/09/2024 End stage congestive heart failure ([facility]) 11/13/2024 Wound dehiscence 11/12/2024 Seizures ([facility]) 11/02/2024 ESRD (end stage renal disease) ([facility]) 11/02/2024 Dialysis patient ([facility]) 11/02/2024 Sepsis, due to unspecified organism, unspecified whether acute organ dysfunction present ([facility]) 10/22/2024 Edema of left lower extremity 10/05/2024 COVID-19 09/14/2024 Shortness of breath 03/02/2024 Pulmonary edema, acute ([facility]) 02/19/2024 Gastrointestinal hemorrhage, unspecified gastrointestinal hemorrhage [...] of Care supervision is transferred to a [facility] Therapy Services Occupational Therapist. Goals and/or treatment plan was established in collaboration with patient/family/other representatives. [1] Past Medical History: Diagnosis Date Chronic kidney disease (CKD) Hemodialysis patient (CMS/HCC) ([facility]) Wednesday, , Wednesday History of blood transfusion 02/27/2022 Hypertension Seizure ([facility]) Developed seizure-like activity on 02/24 during hospital admission [2] Past Surgical History: Procedure Laterality Date AV FISTULA PLACEMENT Left 08/07/2022 COLONOSCOPY N/A 01/25/2024 Performed by Chrissy Gilman MD at [facility] ENDOSCOPY IR CVC TUNNELED DIALYSIS CATHETER PLACEMENT 02/27/2022 IR CVC TUNNELED CATHETER PLACEMENT 02/27/[address] [facility] SPECIAL PROCEDURES IR EMBOLIZATION 01/24/2024 IR EMBOLIZATION 01/24/[address] [facility] SPECIAL PROCEDURES VASCULAR SURGERY Left 11/02/2024 EXCISION OF LEFT UPPER EXTREMITY INFECTED GRAFT (JIM) VASCULAR SURGERY Left 11/05/2024 REVISION OR REPAIR, AV FISTULA (JIM) [facility] Geriatric Medicine Inpatient Consult Service Admission [...] for pain --QTc= 451 ms on 12/11/24 --[place] PRN Seroquel for ONLY if danger to [...] PT/OT evaluation --Anticipate d/c to return to [facility] --Vitamin D 60 --Check orthostatic vital signs as able --Palliative care following for ongoing goals of care conversations --Scrap Drop Crane Operator- supplements ordered BID Acute pain due [...] level 11.3 -As a new medication with GLUE SPECIALTY SUPERVISOR activity, sertraline may be a contributor to [...] year-old female admitted to acute care from [facility] for fall on 12/08. Patient reportedly [...] 0.83 12/13/2024 Lab Results Component Value Date [id number] 1,419 (H) 12/13/2024 Lab Results Component Value [...] Daily, John Shepherd, DO, 5,000 Units at 12/19/24 0951 dextrose [...] mg, 10 mg, IntraVENous, q6h PRN, Radhajacquelyn Kevin, DO, 10 mg at 12/18/24 1854 levETIRAcetam in sodium chloride (Keppra) IVPB 500 mg, 500 mg, IntraVENous, Daily, Jeane Carlson, DISTRICT COMMERCIAL SUPERINTENDENT - INSTRUMENT ASSEMBLER, Stopped at 12/18/24 1950 Lidocaine 4 % patch 1 patch, 1 patch, TransDERmal, Daily, Radha Paredesmin, DO melatonin tablet 5 mg, 5 mg, Oral, Nightly PRN, Eileen Duncan, PARK - INSTRUMENT ASSEMBLER, 5 mg at 12/15/242055 naloxone (Narcan) injection [...] 12.5 mg, Oral, BID PRN, Eileen Duncan, DISTRICT COMMERCIAL SUPERINTENDENT - INSTRUMENT ASSEMBLER sodium chloride 0.9 % infusion, 5-250 mL/hr, IntraVENous, PRN, John Benitez Pentz, DO sodium chloride 0.9 % infusion, 250 mL/hr, IntraVENous, PRN, Ramonita Garnett, [place] sodium chloride 0.9 % infusion, 250 mL/hr, IntraVENous, PRN, Leticia Leonardo, DO sodium chloride 0.9% (NS) flush 5-40 mL, 5-40 mL, IntraVENous, q12h, John Benitez Pentz, DO, 10 mL at 12/19/24 0509 sodium [...] original note were not included. PHYSICAL THERAPY [facility] Initial Evaluation Name/MRN: Apoorva Gonzalez ([id number]) Evaluation Date: 12/19/2024 Date of : 1950 Admission Date: 12/08/2024 8:06 PM Age: 74 y.o. Room/Bed: [facility] A Discharge Recommendation: Correction Facility Assessment IMPRESSION: Pt is a 74 [...] stage congestive heart failure ([facility]) 11/13/2024 Wound dehiscence 11/12/2024 Seizures ([facility]) 11/02/2024 ESRD (end stage renal disease) ([facility]) 11/02/2024 Dialysis patient ([facility]) 11/02/2024 Sepsis, due to unspecified organism, unspecified whether acute organ dysfunction present ([facility]) 10/22/2024 Edema of left lower extremity 10/05/2024 COVID-19 09/14/2024 Shortness of breath 03/02/2024 Pulmonary edema, acute ([facility]) 02/19/2024 Gastrointestinal hemorrhage, unspecified gastrointestinal hemorrhage [...] Raw Score (No Stairs) : 11 JH-HLM -HLM Scale: Walked 10 steps or more (i.e. [...] of Care supervision is transferred to a [facility] Therapy Services Physical Therapist. Goals and/or [...] 01/25/2024 Performed by Chrissy Gilman MD at [facility] ENDOSCOPY IR CVC TUNNELED DIALYSIS CATHETER PLACEMENT 02/27/2022 IR CVC TUNNELED CATHETER PLACEMENT 02/27/[address] [facility] SPECIAL PROCEDURES IR EMBOLIZATION 01/24/2024 IR EMBOLIZATION 01/24/[address] [facility] PROCEDURES VASCULAR SURGERY Left 11/02/2024 EXCISION OF LEFT UPPER EXTREMITY INFECTED GRAFT (JIM) VASCULAR SURGERY Left 11/05/2024 REVISION OR REPAIR, AV FISTULA (JIM) Cosigned by Guilherme Tavares PT at 12/19/2024 3:24 PM EDT Images from the original note were not included. Hospitalist Progress Note 12/19/2024 Subjective: Admit Date: 12/08/2024 PCP: Roxie Gonzales#: [id number] A Hospital Course: Per previous hospitalist's note: [...] interval not displayed. BMP: Recent Labs 12/17/24 0812/18/2441912/19/24 0027 NA 128* 128* 135* K 4.0 4.4 3.9 CL 95* 97* 102 CO2 26 25 25 BUN 14 18 11 CREATININE 2.91* 3.46* 2.25* GLUCOSE 110 89 73* CALCIUM 7.3* 7.3* 7.3* ANIONGAP 7 6 8 LIVER PROFILE: Recent Labs 12/17/24 0827 12/18/24 0420 12/19/24 0027 AST 41* 51* 49* [...] QT Interval 360 QTC Interval 451 P [place] 61 QRS [place] 20 T Wave [place] 19 MS Interval 121 Impression Sinus rhythm Probable LVH [...] MD Division of Hospitalist Medicine Inpatient Medical Services/[facility] [1] Past Medical History: Diagnosis Date Chronic kidney disease (CKD) Hemodialysis patient ([facility]/HCC) ([facility]) Wednesday, , Wednesday History of blood transfusion 02/27/2022 Hypertension Seizure ([facility]) Developed seizure-like activity on 02/24 during [...] PRN, Radha Kevin, , 10 mg at 12/18/24 1854 levETIRAcetam in sodium chloride (Keppra) IVPB 500 mg, 500 mg, IntraVENous, Daily, Jeane Carlson, DISTRICT COMMERCIAL SUPERINTENDENT - INSTRUMENT ASSEMBLER, Stopped at 12/18/24 1950 Lidocaine 4 % patch 1 patch, 1 patch, TransDERmal, Daily, Radha Kevin DO melatonin tablet 5 mg, 5 mg, Oral, Nightly PRN, Eileen Duncan, DISTRICT COMMERCIAL SUPERINTENDENT - INSTRUMENT ASSEMBLER, 5 mg at 12/15/242055 naloxone (Narcan) injection 0.4 mg, 0.4 mg, IntraVENous, q5 min PRN, Radha Kevin, DO ondansetron ODT (Zofran-ODT) disintegrating tablet 4 mg, 4 mg, Oral, q8h PRN OR ondansetron (Zofran) injection 4 mg, 4 mg, IntraVENous, q6h PRN, John Shepherd, oxyCODONE (Roxicodone) immediate release tablet 2.5 mg, 2.5 mg, Oral, q4h PRN, Radha aPredesmin, DO oxyCODONE (Roxicodone) immediate release tablet 5 mg, 5 mg, Oral, q4h PRN, Radha Kevin, , 5 mg at 12/11/24 2250 polyethylene glycol (PEG) 3350 (Miralax) packet 17 g, 17 g, Oral, Daily PRN, John Shepherd, DO, 17 g at 12/10/24 1204 pregabalin (Lyrica) capsule 25 mg, 25 mg, Oral, BID PRN, Radha Kuzmin, DO, 25 mg at 12/11/24 1052 QUEtiapine (SEROquel) tablet 12.5 mg, 12.5 mg, Oral, BID PRN, Eileen Duncan, DISTRICT COMMERCIAL SUPERINTENDENT - INSTRUMENT ASSEMBLER sodium chloride 0.9 % infusion, 5-250 mL/hr, IntraVENous, PRN, John Benitez Pentz, DO sodium chloride 0.9 % infusion, 250 mL/hr, IntraVENous, PRN, Ramonita Garnett, GREENKEEPER sodium chloride 0.9 % infusion, 250 mL/hr, [...] Date Chronic kidney disease (CKD) Hemodialysis patient ([facility]/HCC) (HCC) Wednesday, , Wednesday History of blood transfusion 02/27/2022 Hypertension Seizure ([facility]) Developed seizure-like activity on 02/24 during [...] needed to determine the need for possible senior care IV. Thank you for allowing me to [...] 4.4 CL 98 95* 97* CO2 25 GLUCOSE 146* 110 89 CALCIUM 7.4* [...] any questions or concerns Sean Castaneda MD [facility] - Infectious Diseases [...] 3.46 (H) 12/18/2024 042 GLUCOSE 89 12/18/2024 0420 CALCIUM 7.3 (L) 12/18/2024 0420 PROT 5.5 (L) 12/18/2024 0420 BILITOT 0.5 12/18/2024 0420 ALKPHOS 136 12/18/2024 042 AST 51 (H) 12/18/2024 0420 ALT 6 12/18/2024 042 PROCAL 68.03 (H) 10/05/2024 1419 PROCAL 19.25 (H) 09/15/2024 0308 PROCAL 76.25 (H) 09/14/2024 0541 Lab Results Component Value Date/Time WBC 19.3 (H) 12/18/2024 042 HGB 8.8 (L) 12/18/2024 09 HGB 9.3 12/11/2024 2030 HCT 25.1 (L) 12/18/2024 09 PLT 327 12/18/2024419 LYMPHOPCT 9.0 (L) 12/14/2024 024 LYMPHOPCT 8 (L) 11/01/2024 031 MONOPCT 7.6 12/14/2024 024 MONOPCT 2 (L) 11/01/2024 0317 BASOPCT 0.8 12/14/2024 024 BASOPCT 1 11/01/2024316 NEUTROABS 10.4 (H) 12/14/2024 0240 Micro: 12/12 [...] determined Orthopaedic surgery will follow. Please page curriculum consultant orthopaedic resident for questions or concerns. Radiology reports reviewed. C3-4 findings felt to be degenerative, and not infectious. No plan for biopsy. Patient may follow up as needed with Dr. Benito for her neck pain. Additionally, several attempts have been made at spine exam, but these have not been successful given patient's ongoing altered mental status. Please page ortho resident curriculum consultant if/when patient mentation improves so that a formal spine exam may be performed. Orthopaedic surgery will sign off. Please page curriculum consultant orthopaedic resident for questions or concerns. Hospitalist [...] History[1] LABS: CBC: Recent Labs 12/17/24 0033 09/81212/17/24 22212/18/24 0420 12/18/24 09 WBC 11.3* 12.8* -- 19.3* -- RBC 1.39* 1.39* -- 2.92* -- HGB 4.1* 4.2* 9.6* 9.0* 8.8* HCT 12.6* 12.6* 27.1* 25.3* 25.1* MCV 90.6 90.6 -- 86.6 -- RDW 17.6* 17.6* -- 14.9 -- PLT 322 350 -- 327 -- BMP: Recent Labs 12/16/24191412/17/2482612/18/24419 NA 128* 128* 128* K 4.3 4.0 4.4 CL 98 95* 97* CO2 BUN 10 14 18 CREATININE 2.66* 2.91* 3.46* GLUCOSE 146* 110 89 CALCIUM 7.4* 7.3* 7.3* ANIONGAP 5 7 6 LIVER PROFILE: Recent Labs 12/16/24191412/17/2482612/18/24419 AST 45* 41* 51* ALT 12 8 [...] DNR-CCA Anticipated Discharge - Date - DC [facility] 12/19 Extended Emergency Contact Information Primary Emergency Contact: Deshawn Crystal Mobile Relation: Brother Lode Miner Blasting needed? No Secondary Emergency Contact: Edward Ruggiero Mobile Relation: Significant Other Preferred language: Botswanan Lode Miner Blasting needed? No Leticia Leonardo DO Division of Hospitalist Medicine [facility] [1] Past Medical History: Diagnosis [...] on MRI with sedation plan for today [facility] Geriatric Medicine Inpatient Consult Service Admission [...] for pain --QTc= 451 ms on 12/11/24 --[place] PRN Seroquel for ONLY if danger to [...] PT/OT eval --Anticipate d/c to return to [facility] --Vitamin D 60 --Check orthostatic vital signs as able --Palliative care following for ongoing goals of care conversations --Scrap Drop Crane Operator- supplements ordered BID Acute pain due [...] level 11.3 -As a new medication with GLUE SPECIALTY SUPERVISOR activity, sertraline may be a contributor to [...] year-old female admitted to acute care from [facility] for fall on 12/08. Patient reportedly [...] PM Result Value Ref Range PRODUCT CODE X3762J50 Unit Number [id number] Unit ABO O Unit RH POS Crossmatch interpretation COMP Dispense Status Transfused Blood Expiration Date [id number] Product Blood Type 5100 Unit Volume 300 mL PRODUCT CODE E3501F16 Unit Number [id number] Unit ABO O Unit RH POS Crossmatch interpretation COMP Dispense Status Transfused Blood Expiration Date [id number] Product Blood Type 5100 Unit Volume 300 mL PRODUCT CODE E1068H67 Unit Number [id number] Unit ABO O Unit RH POS Crossmatch interpretation COMP Dispense Status Transfused Blood Expiration Date [id number] Product Blood Type 5100 Unit Volume 300 [...] 0.83 12/13/2024 Lab Results Component Value Date [id number] 1,419 (H) 12/13/2024 Lab Results Component Value [...] Units, 1,200-2,000 Units, IntraCATHeter, PRN, Jose G Alcalalanigrayson, DO, 2,100 Units at 12/14/24 1245 [Held by provider] heparin injection 5,000 Units, 5,000 Units, SubCUTAneous, 3 times per day, Leticia Estevezntire, DO, 5,000 Units at 12/17/24 0537 HYDROmorphone [...] 5 mg, Oral, Nightly PRN, Eileen Duncan, DISTRICT COMMERCIAL SUPERINTENDENT - INSTRUMENT ASSEMBLER, 5 mg at 12/15/242055 meropenem (Merrem) 1,000 [...] renal diet and fluid restriction. Cont HD F Radha Meza MD 12/17/2024 2:10 PM [1] [...] PRN, Sean Castaneda MD, 2 mg at 092147 alteplase (Cathflo Activase) 2 mg in sterile [...] PRN, Radhajacquelyn Paredesmin, DO, 10 mg at 12/15/242055 levETIRAcetam (Keppra) tablet 500 mg, 500 mg, Oral, Daily, John Shepherd, DO, 500 mg at 12/16/24901 Lidocaine 4 % patch 1 patch, 1 patch, TransDERmal, Daily, Radha Paredesmin, DO melatonin tablet 5 mg, 5 mg, Oral, Nightly PRN, Eileen Duncan, DISTRICT COMMERCIAL SUPERINTENDENT - INSTRUMENT ASSEMBLER, 5 mg at 12/15/242055 meropenem (Merrem) 1,000 [...] mg, IntraVENous, q6h PRN, John Shepherd, DO oxyCODONE (Roxicodone) immediate release tablet 2.5 mg, 2.5 mg, Oral, q4h PRN, Radha Beltranzmin, DO oxyCODONE (Roxicodone) immediate release tablet 5 mg, 5 mg, Oral, q4h PRN, Radha Paredesmin, DO, 5 mg at 12/11/24 225 polyethylene glycol (PEG) 3350 (Miralax) packet 17 g, 17 g, Oral, Daily PRN, John Shepherd, DO, 17 g at 12/10/24 1204 pregabalin (Lyrica) capsule 25 mg, 25 mg, Oral, BID PRN, Radha Kevin DO, 25 mg at 12/11/24 1052 QUEtiapine (SEROquel) tablet 12.5 mg, 12.5 mg, Oral, BID PRN, Eileen Duncan APRN - INSTRUMENT ASSEMBLER sodium chloride 0.9 % infusion, 250 mL/hr, IntraVENous, PRN, John Benitez Pentz, DO sodium chloride 0.9 % infusion, 5-250 mL/hr, IntraVENous, PRN, John Benitez Pentz, DO sodium chloride 0.9 % infusion, 250 mL/hr, IntraVENous, PRN, Ramonita Garnett, GREENKEEPER sodium chloride 0.9 % infusion, 250 mL/hr, [...] Admit Date: 12/08/2024 PCP: Roxie Spain Room#: [id number] A BRIEF HOSPITAL COURSE: Per previous hospitalist's [...] +confused but knows year, month, and at [facility]. +restless. Reports diffuse pain but [...] CBC: Recent Labs 12/16/24 0020 12/17/24 0033 12/17/24812 WBC 10.3 11.3* 12.8* RBC 2.76* 1.39* 1.39* HGB 8.2* 4.1* 4.2* HCT 24.9* 12.6* 12.6* MCV 90.2 90.6 90.6 RDW 17.2* 17.6* 17.6* PLT 394 322 350 BMP: Recent Labs 12/16/24 0020 12/16/24191412/17/24826 NA 132* 128* 128* K 4.0 4.3 4.0 CL 99 98 95* CO2 26 BUN 7* 10 14 CREATININE 1.99* 2.66* 2.91* GLUCOSE 98 146* 110 CALCIUM 7.5* 7.4* 7.3* ANIONGAP 8 5 7 LIVER PROFILE: Recent Labs 12/16/24 0020 12/16/24191412/17/24826 AST 52* 45* 41* ALT 13 12 [...] DNR-CCA Anticipated Discharge - Date - DC [facility] 12/19 Extended Emergency Contact Information Primary Emergency Contact: Deshawn Crystal Mobile Relation: Brother Lode Miner Blasting needed? No Secondary Emergency Contact: Edward Ruggiero Mobile Relation: Significant Other Preferred language: Botswanan Lode Miner Blasting needed? No Leticia Leonardo DO Division of Hospitalist Medicine [facility] [1] Past Medical History: Diagnosis [...] DATE: 12/08/2024 TODAY'S DATE: 12/17/2024 Subjective HPI: Apoorav Gonzalez is a 74 y.o. female with [...] Intake/Output Summary (Last 24 hours) at 12/17/2024 0935 Last data filed at 12/17/2024 0605 Gross [...] from last 7 days Lab Units 12/17/24 0812/16/24191412/16/24 0020 SODIUM mmol/L 128* 128* 132* POTASSIUM mmol/L 4.0 4.3 4.0 CHLORIDE mmol/L 95* 98 99 CO2 mmol/L 26 25 25 BUN mg/dL 14 10 7* CREATININE mg/dL 2.91* 2.66* 1.99* GLUCOSE mg/dL 110 146* 98 CALCIUM mg/dL 7.3* 7.4* 7.5* Results from last 7 days Lab Units 12/17/24 0812/16/24191412/16/24 0020 ALK PHOS U/L 130 139 147 [...] 8:36 AM Mariposa Hidalgo PharmD (available on Notifixious) [facility] PROGRESS NOTE Subjective Interval [...] John Shepherd, DO, 1 capsule at 12/16/24 0902 cholecalciferol (Vitamin D-3) tablet 5,000 Units, 5,000 [...] 5 mg, Oral, Nightly PRN, Eileen Duncan, DISTRICT COMMERCIAL SUPERINTENDENT - INSTRUMENT ASSEMBLER, 5 mg at 12/15/242055 meropenem (Merrem) 1,000 [...] 12.5 mg, Oral, BID PRN, Eileen Duncan, DISTRICT COMMERCIAL SUPERINTENDENT - INSTRUMENT ASSEMBLER sodium chloride 0.9 % infusion, 250 mL/hr, [...] 11:04 AM Mariposa Hidalgo PharmD (available on Notifixious) Hospitalist Progress Note 12/16/2024 Subjective: Admit Date: [...] History: Medical History[1] LABS: CBC: Recent Labs 12/14/2423912/15/24 0802 12/16/24 0020 WBC 13.1* 12.0* 10.3 RBC 2.56* 2.77* 2.76* HGB 7.5* 8.3* 8.2* HCT 23.6* 25.6* 24.9* MCV 92.2 92.4 90.2 RDW 17.2* 17.2* 17.2* PLT 305 363 394 BMP: Recent Labs 12/14/2423912/15/24 0812/16/24 0020 NA 130* 134* 132* K 3.7 [...] Directive: DNR-CCA Anticipated Discharge - Date - [facility] 12/19 Extended Emergency Contact Information Primary Emergency Contact: BonillaDeshawn Mobile Relation: Brother Lode Miner Blasting needed? No Secondary Emergency Contact: Edward Ruggiero Mobile Relation: Significant Other Preferred language: B[place]an Lode Miner Blasting needed? No Leticia Leonardo DO Division of Hospitalist Medicine Acute care [facility] [1] Past Medical History: [...] any questions or concerns Pipe Soto MD [facility] [place] [phone] [facility] Geriatric Medicine Inpatient Consult Service Admission [...] for pain --QTc= 451 ms on 12/11/24 --[place] PRN Seroquel for ONLY if danger to [...] PT/OT eval --Anticipate d/c to return to [facility] --Vitamin D 60 --Check orthostatic vital signs as able --Palliative care following for ongoing goals of care conversations --Scrap Drop Crane Operator- supplements ordered BID Acute pain due [...] hemodialysis sessions. -As a new medication with GLUE SPECIALTY SUPERVISOR activity, sertraline may be a contributor to [...] year-old female admitted to acute care from [facility] for fall on 12/08. Patient reportedly [...] 0.83 12/13/2024 Lab Results Component Value Date [id number] 1,419 (H) 12/13/2024 Lab Results Component Value [...] mL, IntraVENous, Once PRN, Radha Kevin, DO glucagon (human recombinant) injection 1 mg, [...] 5 mg, Oral, Nightly PRN, Eileen Duncan, DISTRICT COMMERCIAL SUPERINTENDENT - INSTRUMENT ASSEMBLER, 5 mg at 12/13/24 2202 meropenem (Merrem) 1,000 mg in sodium chloride 0.9 % 100 mL IVPB, 1,000 mg, IntraVENous, q12h, Shamar Bearden MD, Last Rate: 33.3 mL/hr at 12/15/24 1212, 1,000 mg at 12/15/24 1212 naloxone (Narcan) injection 0.4 mg, 0.4 mg, IntraVENous, q5 min PRN, Radha Reggiemin, DO ondansetron ODT (Zofran-ODT) disintegrating tablet 4 [...] 12.5 mg, Oral, BID PRN, Eileen Duncan, DISTRICT COMMERCIAL SUPERINTENDENT - INSTRUMENT ASSEMBLER sodium chloride 0.9 % infusion, 250 mL/hr, IntraVENous, PRN, John Benitez Pentz, DO sodium chloride 0.9 % infusion, 5-250 mL/hr, IntraVENous, PRN, John Benitez Pentz, DO sodium chloride 0.9 % infusion, 250 mL/hr, IntraVENous, PRN, Ramonita Garnett, BRAYDEN sodium chloride 0.9% (NS) flush 5-40 mL, 5-40 mL, IntraVENous, q12h, John Victor Manuel Pentz, DO, 10 mL at 12/15/24 0526 [...] the original note were not included. [facility] Wound Care Progress Note Apoorva Gonzalez AGE: [...] apply ET mix TID and PRN, leave HOTEL ASSISTANT MANAGER -P500 bed -waffle chair cushion -Q2hr/PRN turns -glide sheets for T&R -continence checks Q1-2 Hrs/PRN Nutritional support Wound Care to follow Recommend to follow up at [facility] Outpatient wound care center after hospital [...] 01/25/2024 Performed by Chrissy Gilman MD at [facility]COPY IR CVC TUNNELED DIALYSIS CATHETER PLACEMENT 02/27/2022 IR CVC TUNNELED CATHETER PLACEMENT 02/27/[address] [facility] PROCEDURES IR EMBOLIZATION 01/24/2024 IR EMBOLIZATION 01/24/[address] [facility] VASCULAR SURGERY Left 11/02/2024 EXCISION [...] Medical History[1] LABS: CBC: Recent Labs 12/13/244412/14/24 024 WBC 16.5* 13.1* RBC 2.75* 2.56* HGB 8.0* 7.5* HCT 25.3* 23.6* MCV 92.0 92.2 RDW 17.6* 17.2* PLT 312 305 BMP: Recent Labs 12/13/244412/14/24 024 NA 134* 130* K 4.2 3.7 CL 100 96* CO2 BUN 22 26* CREATININE 3.82* 4.37* GLUCOSE 47* 95 CALCIUM 7.8* 7.5* ANIONGAP 9 9 LIVER PROFILE: Recent Labs 12/14/24239 AST 50* ALT 13 BILITOT 0.4 ALKPHOS [...] Directive: DNR-CCA Anticipated Discharge - Date - [facility] 12/18 Extended Emergency Contact Information Primary Emergency Contact: BonillaDeshawn Mobile Relation: Brother Lode Miner Blasting needed? No Secondary Emergency Contact: Edward Ruggiero Mobile Relation: Significant Other Preferred language: [place]an Lode Miner Blasting needed? No Leticia Leonardo DO Division of Hospitalist Medicine [facility] [1] Past Medical History: Diagnosis Date Chronic kidney disease (CKD) Hemodialysis patient ([facility]) ([facility]) Wednesday, , Wednesday History of blood transfusion 02/27/2022 Hypertension Seizure ([facility]) Developed seizure-like activity on 02/24 during [...] any questions or concerns Pipe Soto MD [facility] [place] [phone] Spiritual Care Note [facility] Palliative Care Patient Name:Apoorva Gonzalez Chief Complaint: Chief Complaint Patient presents with Fall Pt presents to ED for mechanical fall while at dinner. Pt family states pt fell backwards and hit her head and now has lump on head, denies LOC. Denies blood thinners. Reason for visit: Daylight Driller Consult Services Provided To:patient and care team [...] follow-up on 12/18. Please reach out to curriculum consultant provider if more urgent follow up is necessary. Assessment/Plan Goals of care - Apoorva Gonzalez lacks capacity for medical decision-making due to encephalopathy. - legal surrogate decision maker is SHADY, Brother Deshawn Crystal ( ) Alternate is s/o Edward Ruggiero [phone]) -goals of care include: 1) Goal is [...] History of seizures - remains on home [facility] Palliative Care Encounter -Code Status: DNR-CCA - will continue to follow for ongoing monitoring of progression of encephalopathy as well as for appropriateness for hospice care due to ESRD, sepsis, encephalopathy - was residing at [facility] Time Stamp: Total of 50 minutes [...] Management Advanced Directives: Health Care Power of Ferry Boat Captain, DNR Functional Assessment: PPS 40% mainly in bed; can't do any work/extensive disease; mainly assistance; normal or reduced intake; full or drowsy or confusion Prognosis: uncertain at this time Spiritual Assessment: No spiritual distress identified Bereavement and Grief: To Be Determined PDMP/OARRS Reviewed: Yes-reviewed Social history: Marital status: Children: unknown Living status: [facility] Work history: unknown status: No [facility]: None ROS: See palliative care ROS/ESAS below; Detail ROS unable to be obtained due to patient's mental status Republic Symptom Assessment Score Republic Score Pain Score (if non-verbal, add .FLACC [...] Transition Note Initiated: yes Chris Verdugo MD [facility] Geriatric Medicine Inpatient Consult Service Admission [...] for pain --QTc= 451 ms on 12/11/24 --[place] PRN Seroquel for ONLY if danger to [...] PT/OT eval --Anticipate d/c to return to [facility] --Vitamin D 60 --Check orthostatic vital signs as able --Palliative care following --Scrap Drop Crane Operator- supplements ordered BID Acute pain due [...] hemodialysis sessions. -As a new medication with GLUE SPECIALTY SUPERVISOR activity, sertraline may be a contributor to [...] year-old female admitted to acute care from [facility] for fall on 12/08. Patient reportedly [...] 0.83 12/13/2024 Lab Results Component Value Date [id number] 1,419 (H) 12/13/2024 Lab Results Component Value [...] tablet 10 mg, 10 mg, Oral, Daily, Radahjacquelyn Paredesmin, DO, 10 mg at 12/14/24 08 atorvastatin (Lipitor) tablet 40 mg, 40 mg, Oral, Nightly, John Benitez Pentz, DO, 40 mg at 12/13/24 2202 B complex-vitamin C-folic acid (Nephrocaps) capsule 1 capsule, 1 capsule, Oral, Daily, John Benitez Pentz, DO, 1 capsule at 12/14/24 0801 cholecalciferol (Vitamin D-3) tablet 5,000 Units, 5,000 Units, Oral, Daily, John Victor Manuel Pentz, DO, 5,000 Units at 12/14/24 0801 dextrose 5 % infusion, 100 mL/hr, IntraVENous, PRN, Ramonita Garnett NP, Last Rate: 100 mL/hr at 12/13/24 2242, 100 mL/hr at 12/13/24 2242 dextrose 50 % solution 12.5 g, 12.5 g, IntraVENous, PRN, Ramonita Garnett NP, 12.5 g at 12/12/24 2230 gadopiclenol (Vueway) injection 5 mL, 5 mL, IntraVENous, Once PRN, Radha Paredesmin DO glucagon (human recombinant) injection 1 mg, [...] John Shepherd, DO, 500 mg at 12/14/24 08 Lidocaine 4 % patch 1 patch, 1 patch, TransDERmal, Daily, Radha Kevin, DO melatonin tablet 5 mg, 5 mg, Oral, Nightly PRN, Eileen Duncan, DISTRICT COMMERCIAL SUPERINTENDENT - INSTRUMENT ASSEMBLER, 5 mg at 12/13/24 2202 meropenem (Merrem) [...] WC, John Shepherd DO, 800 mg at 12/14/24 0801 sodium [...] Admit Date: 12/08/2024 PCP: Roxie Spain Room#: [id number] A BRIEF HOSPITAL COURSE: Per previous hospitalist's [...] History: Medical History[1] LABS: CBC: Recent Labs 12/12/2410212/13/244412/14/24 0240 WBC 11.5* 16.5* 13.1* RBC 2.69* [...] bleeding ESRD on hemodialysis - Dialysis on //F -Nephrology following - fluid overload on CXR Hypertensive urgency -As needed labetalol Seizure disorder -Continue home Keppra Left hip pain -X-rays with no acute abnormality Hypokalemia - resolved Hyponatremia - mild Advance Directive: DNR-CCA Anticipated Discharge - Date - DC [facility] 12/16 Extended Emergency Contact Information Primary Emergency Contact: Deshawn Crystal Mobile Relation: Brother Lode Miner Blasting needed? No Secondary Emergency Contact: Edward Ruggiero Mobile Relation: Significant Other Preferred language: [place]an Lode Miner Blasting needed? No Leticia Leonardo DO Division of Hospitalist Medicine [facility] [1] Past Medical History: Diagnosis [...] the original note were not included. [facility] Wound Care Progress Note Apoorva Gonzalez AGE: [...] resting in bed. At time of visit, substitute nurse at bedside setting up. Treatment noted. PAST [...] apply ET mix TID and PRN, leave HOTEL ASSISTANT MANAGER -P500 bed -waffle chair cushion -Q2hr/PRN turns -glide sheets for T&R -continence checks Q1-2 Hrs/PRN Nutritional support Wound Care to follow Recommend to follow up at [facility] Outpatient wound care center after hospital [...] 01/25/2024 Performed by Chrissy Gilman MD at [facility] IR CVC TUNNELED DIALYSIS CATHETER PLACEMENT 02/27/2022 IR CVC TUNNELED CATHETER PLACEMENT 02/27/[address] [facility] PROCEDURES IR EMBOLIZATION 01/24/2024 IR EMBOLIZATION 01/24/[address] [facility] VASCULAR SURGERY Left 11/02/2024 EXCISION [...] from the original note were not included. [facility] - Infectious Diseases Attending Progress Note Reason [...] (H) 12/14/2024 024 CREATININE 4.37 (H) 12/14/2024 0240 GLUCOSE 95 12/14/2024 024 CALCIUM 7.5 (L) 12/14/2024 024 PROT 6.2 (L) 12/14/2024 024 BILITOT 0.4 12/14/2024 024 ALKPHOS 131 12/14/2024 0240 AST 50 (H) 12/14/2024 024 ALT 13 12/14/2024 0240 PROCAL 68.03 (H) 10/05/2024 1419 PROCAL 19.25 (H) 09/15/2024 0308 PROCAL 76.25 (H) 09/14/2024 0541 Lab Results Component Value Date/Time WBC 13.1 (H) 12/14/2024 024 HGB 7.5 (L) 12/14/2024 0240 HGB 9.3 12/11/2024 2030 HCT 23.6 (L) 12/14/2024 0240 PLT 305 12/14/2024 024 LYMPHOPCT 9.0 (L) 12/14/2024 024 LYMPHOPCT 8 (L) 11/01/2024 0317 MONOPCT 7.6 12/14/2024 0240 MONOPCT 2 (L) 11/01/2024 0317 BASOPCT 0.8 12/14/2024 0240 BASOPCT 1 11/01/2024 031 NEUTROABS 10.4 (H) 12/14/2024 0240 Micro: 12/12/2024 - 2/2 blood cultures show [...] Bearden MD - 12/14/2024 4:44 PM EDT [facility] Infectious Disease Attending Note Patient seen [...] 10 min Stress: Stress Concern Present (12/09/2024) Citizen Of [place] [facility] - Occupational Stress Questionnaire Feeling of Stress : Very much Social Connections: Moderately Integrated (12/09/2024) Social Connection and Isolation Panel [NHANES] Frequency of Communication with Friends and Family: More than three times a week Frequency of Social Gatherings with Friends and Family: Three times a week Attends L[employer] Services: 1 to 4 times per year [...] assess secondary to current mentation VITALS: Vitals: 12/12/24 2000 12/12/24 2231 12/12/24 2324 12/13/24926 BP: 150/81 (!) 149/112 158/84 151/76 BP [...] update plan of care accordingly. Please page curriculum consultant orthopaedic resident for questions or concerns. [1] [...] 01/25/2024 Performed by Chrissy Gilman MD at [facility] IR CVC TUNNELED DIALYSIS CATHETER PLACEMENT 02/27/2022 IR CVC TUNNELED CATHETER PLACEMENT 02/27/[address] [facility] PROCEDURES IR EMBOLIZATION 01/24/2024 IR EMBOLIZATION 01/24/[address] [facility] VASCULAR SURGERY Left 11/02/2024 EXCISION [...] g, 12.5 g, IntraVENous, PRN, Ramonita Garnett, GREENKEEPER, 12.5 g at 12/12/24 2230 gadopiclenol (Vueway) injection 5 mL, 5 mL, IntraVENous, Once PRN, Radhajacquelyn Paredesmin, DO glucagon (human recombinant) injection 1 [...] 1 patch, 1 patch, TransDERmal, Daily, Radha Kuzmin, DO melatonin tablet 5 mg, 5 mg, Oral, Nightly PRN, Eileen Duncan, DISTRICT COMMERCIAL SUPERINTENDENT - INSTRUMENT ASSEMBLER naloxone (Narcan) injection 0.4 mg, 0.4 mg, [...] [] CrCl ml/min (Cockcroft-Gault, if ROLANDO, no WATERMELON INSPECTOR) Infectious Diagnosis: Bone and joint infection (discitis) [...] Component Value Date CAROLE 27.2 10/26/2024 ROBERT 15.4 12/13/2024 Given 750mg x1 this am for level 15.4mcg/mL (14.2mg/kg) Will adjust dose/frequency if needed according to level. Follow renal status closely. Orders placed. Thank you for this consult. Please page/call with questions. Date: 12/13/24 Time: 2:03 PM Hilda Wilkes RPh (available on Notifixious) Hospitalist Progress Note 12/13/2024 Subjective: Admit Date: 12/08/2024 PCP: Roxie Spain Room#: [id number] A BRIEF HOSPITAL COURSE: Per previous hospitalist's [...] Medical History[1] LABS: CBC: Recent Labs 12/11/2422412/11/24202912/12/2410212/13/24 004 WBC 12.1* -- 11.5* 16.5* RBC 2.57* -- 2.69* 2.75* HGB 7.7* 9.3 8.0* 8.0* HCT 23.6* -- 24.8* 25.3* MCV 91.8 -- 92.2 92.0 RDW 18.3* -- 17.8* 17.6* PLT 300 -- 332 312 BMP: Recent Labs 12/11/2422412/12/2410212/13/2444 NA 138 137 134* K 3.7 4.1 4.2 CL 100 100 100 CO2 27 26 25 BUN 32* 38* 22 CREATININE 4.96* 5.60* 3.82* GLUCOSE 74* 77* 47* CALCIUM 8.0* 7.8* 7.8* ANIONGAP 11 11 9 LIVER PROFILE: Recent Labs 12/11/24 0225 12/12/24 0103 AST 41* 36* ALT 13 10 [...] DNR-CCA Anticipated Discharge - Date - DC [facility] 12/15 Extended Emergency Contact Information Primary Emergency Contact: Deshawn Crystal Mobile Relation: Brother Lode Miner Blasting needed? No Secondary Emergency Contact: Edward Ruggiero Mobile Relation: Significant Other Preferred language: [place]an Lode Miner Blasting needed? No Leticia Leonardo, Division of Hospitalist Medicine [facility] [1] Past Medical History: Diagnosis [...] PLT 300 -- 332 312 Recent Labs 12/11/2422412/12/24102 12/10/25 0045 NA 138 137 134* K 3.7 [...] any questions or concerns Pipe Soto MD [facility] [place] [phone] Orthopedic Surgery Progress Note The following x-rays were ordered and subsequently completed. My interpretation is as follows: Left shoulder XR (12/13/24): no acute fracture or dislocation. Moderate degenerative changes of the left glenohumeral joint appreciated Radiology reports to be reviewed. Orthopaedic surgery will follow for MRI completion and update plan as indicated. Please page curriculum consultant orthopaedic resident for questions or concerns. Images from the original note were not included. PHYSICAL THERAPY [facility] Name/MRN: Apoorva Gonzalez ([id number]) Date: 12/13/2024 Plans for MRI with sedation, also has pending shoulder x-rays. Will continue to hold and assess at a later time as able. Guilherme Tavares PT [facility] Geriatric Medicine Inpatient Consult Service Admission [...] --Will adjust scheduled melatonin to PRN at for insomnia --Monitor for constipation/urinary retention - [...] --Anticipate d/c to D, anticipate return to [place] [facility] --Vitamin D 60 --Check orthostatic vital signs as able --Palliative care following --Will consult primer waterproofing machine adjuster Acute pain due to trauma -Management per [...] hemodialysis sessions. -As a new medication with GLUE SPECIALTY SUPERVISOR activity, sertraline may be a contributor to [...] discussed with RN, geriatric pharmacist, and nephrology GREENKEEPER. Follow-up: will follow with you Subjective Chief Complaint: fall Geriatrics consulted for fall HPI- The patient is known to me. 74 y.o. year-old female admitted to acute care from [facility] for fall on 12/08. Patient reportedly [...] MRI. Patient had a unwitnessed fall overnight. WATERMELON INSPECTOR called and CT head with no acute intracranial abnormalities. hardware engineering manager placed at bedside. Labs reviewed with sodium [...] be more comfortable than yesterday. Spoke to industrial safety and health specialist at bedside with patient moaning. She has [...] 3.30 09/14/2024 Lab Results Component Value Date [id number] >2,000 (H) 09/14/2024 Lab Results Component Value [...] q8h, Radha Paredesmin, DO, 1,000 mg at 12/13/24 0537 amLODIPine [...] 12.5 g, 12.5 g, IntraVENous, PRN, Ramonita Vasiliy Garnett, GREENKEEPER, 12.5 g at 12/12/24 2230 gadopiclenol (Vueway) injection 5 mL, 5 mL, IntraVENous, Once PRN, Radhajacquelyn Beltranzmin, DO glucagon (human recombinant) injection 1 mg, 1 mg, IntraMUSCular, PRN, Ramonita Garnett, GREENKEEPER glucose oral gel 15 g, 15 g, Oral, PRN, Ramonita Vasiliy Garnett, GREENKEEPER heparin injection 1,200-2,000 Units, 1,200-2,000 Units, IntraCATHeter, [...] Kuzmin, DO, 10 mg at 12/09/24 1521 HYDROmorphone [...] 5 mg, Oral, Nightly PRN, Eileen Duncan, DISTRICT COMMERCIAL SUPERINTENDENT - TAMIR naloxone (Narcan) injection 0.4 mg, [...] times per day, Rosanna Perez APRN - TAMIR stomahesive in petrolatum (ET Mix), , Topical, PRN, Rosanna A. Perez, DISTRICT COMMERCIAL SUPERINTENDENT - INSTRUMENT ASSEMBLER thiamine (Vitamin B1) tablet 250 mg, 250 mg, Oral, Daily, John Shepherd DO, 250 mg at 12/13/24 0912 vancomycin (Vancocin) intermittent dosing (placeholder), , Other, RX Placeholder, Radha Kevin DO To schedule mri with sedation please call [phone] Images from the original note were not included. OCCUPATIONAL THERAPY [facility] Name/MRN: Apoorva Gonzalez ([id number]) Date: 12/12/2024 Attempt Note Attempted OT eval. Awaiting results of C-spine MRI. ~Jelly Gleason MS, OTR/L [facility] Geriatric Medicine Inpatient Consult Service Admission [...] --Anticipate d/c to TBD, anticipate return to [facility] --Vitamin D 60 --Check orthostatic vital [...] CrCl Plan discussed with RN and nephrology GREENKEEPER. Follow-up: will follow with you Subjective Chief Complaint: fall Geriatrics consulted for fall HPI- The patient is known to me. 74 y.o. year-old female admitted to acute care from [facility] for fall on 12/08. Patient reportedly [...] MRI with HD after. Spoke to Nephrology GREENKEEPER due to mentation concerns and missed HD. [...] 360 ms QTC Interval 451 ms P [place] 61 degrees QRS [place] 20 degrees T Wave [place] 19 degrees MS Interval 121 ms Blood Gas, Arterial Collection [...] 3.30 09/14/2024 Lab Results Component Value Date [id number] >2,000 (H) 09/14/2024 Lab Results Component Value [...] Radha Kevin, DO, 10 mg at 12/12/24 08 atorvastatin (Lipitor) tablet 40 mg, 40 [...] mL, IntraVENous, Once PRN, Radha Paredesmin, DO hydrALAZINE (Apresoline) injection 10 mg, 10 [...] John Reynagaew Pentz, DO, 5 mg at 12/10/24 2124 [...] Admit Date: 12/08/2024 PCP: Roxie Spain Room#: [id number] A BRIEF HOSPITAL COURSE: Per previous hospitalist's [...] Emergency Contact: Deshawn Crystal Mobile Relation: Brother Lode Miner Blasting needed? No Secondary Emergency Contact: Edward Ruggiero Mobile Relation: Significant Other Preferred language: [place] Lode Miner Blasting needed? No Leticia Leonardo DO Division of Hospitalist Medicine [facility] [1] Past Medical History: Diagnosis [...] original note were not included. PHYSICAL THERAPY [facility] Name/MRN: Apoorva Westisael Gonzalez ([id number]) Date: 12/12/2024 Pt with pending MRI noted [...] 300 -- 332 Recent Labs 12/10/24 0542 12/11/2422412/12/24 0103 NA 135* 138 137 K [...] any questions or concerns Pipe Soto MD [facility] [place] [phone] MRI attempted again; pt. Unable to tolerate [...] [] CrCl ml/min (Cockcroft-Gault, if ROLANDO, no WATERMELON INSPECTOR) - to have HD today (did not [...] 8:36 AM Hilda Wilkes RPh (available on NextNineu) Images from the original note were not included. OCCUPATIONAL THERAPY [facility] Name/MRN: Apoorva Gonzalez ([id number]) Date: 12/11/2024 OT eval on hold pending MRI c-spine imaging. Will evaluate as appropriate. Leonila Rios OT Hospitalist Progress Note 12/11/2024 Subjective: Admit Date: 12/08/2024 PCP: Roxie Spain Room#: W2-045/W6-153 A Chief Complaint Patient presents with Fall [...] [phone] BMP: Recent Labs 12/09/24 10212/10/2454112/11/24224 NA 136 135* 138 K 3.1* 3.4* [...] following mgmt was pursued: - as above DEC- CORE MEASURE DATA SIRS Criteria Sepsis Criteria [...] Emergency Contact: Deshawn Crystal Mobile Relation: Brother Lode Miner Blasting needed? No Secondary Emergency Contact: Edward Ruggiero Mobile Relation: Significant Other Preferred language: Bots[place]an Lode Miner Blasting needed? No Radha Kevin DO Division of [...] any questions or concerns Pipe Soto MD [facility] [phone] Images from the original note were not included. PHYSICAL THERAPY [facility] Name/MRN: Apoorva Gonzalez ([id number]) Date: 12/11/2024 PT held pending MRI c-spine [...] deltoids) Fluid Accumulation: No significant fluid accumulation Sap Bw Developer Strength: Not Performed Nutrition Assessment: 74yo F [...] Total Energy Requirements (kcals/day): 30-35 kcal/kg = 9623-7430 kcal/day Weight Used for Protein Requirements: Other [...] that within the past year between 105-112#.) [place] Body Weight (lbs) (Calculated): 123 lbs [place] Body Weight (Kg) (Calculated): 56 kg % [place] Body Weight (Calculated): 94.6 % BMI (kg/m2) [...] soon to determine Lilliana Manning RD Contact: *[phone] [facility] Inpatient Consult Service Admission [...] 3.30 09/14/2024 Lab Results Component Value Date [id number] >2,000 (H) 09/14/2024 Lab Results Component Value Date VITD25 60 (H) 12/11/2024 Reviewed: allergies, imaging, active problem lists, medications, and labs [1] Current Facility-Administered Medications: acetaminophen (Tylenol) tablet 650 mg, 650 mg, Oral, q4h PRN OR Acetaminophen (Tylenol) 650 MG/20.3ML solution 650 mg, 650 mg, Oral, q4h PRN OR acetaminophen (Tylenol) suppository 650 mg, 650 mg, Rectal, q4h PRN, Radha Devinzmin, DO acetaminophen (Tylenol) tablet 1,000 mg, 1,000 mg, Oral, q8h, Radha Beltranzmin, DO, 1,000 mg at 12/11/24 1052 amLODIPine (Norvasc) tablet 10 mg, 10 mg, Oral, Daily, Radha Reggiemin, DO, 10 mg at 12/11/24 08 atorvastatin (Lipitor) tablet 40 mg, 40 mg, Oral, Nightly, John Shepherd, DO, 40 mg at 12/10/242123 B complex-vitamin C-folic acid (Nephrocaps) capsule 1 capsule, 1 capsule, Oral, Daily, John Stuartz, DO, 1 capsule at 12/11/24 08 cefepime (Maxipime) 1,000 mg in sodium chloride 0.9 % 50 mL IVPB, 1,000 mg, IntraVENous, q12h, Jacob Laguna DO, Last Rate: 100 mL/hr at 12/11/24 1057, 1,000 mg at 12/11/24 1057 cholecalciferol (Vitamin D-3) tablet 5,000 Units, 5,000 Units, Oral, Daily, John Stuartz, DO, 5,000 Units at 12/11/24 08 hydrALAZINE (Apresoline) injection 10 mg, 10 mg, IntraVENous, q4h PRN, Radha Paredesmin, DO, 10 mg at 12/09/24 1521 labetalol (Normodyne,Trandate) injection 10 mg, 10 mg, IntraVENous, q6h PRN, Radhajacquelyn Paredesmin, DO, 10 mg at 12/10/24 2124 levETIRAcetam (Keppra) tablet 500 mg, 500 mg, Oral, Daily, John Stuartz, DO, 500 mg at 12/11/24 08 Lidocaine 4 % patch 1 patch, 1 patch, TransDERmal, Daily, Radha Paredesmin, DO melatonin tablet 5 mg, 5 mg, Oral, Nightly, John Victor Manuel Pentz, DO, 5 mg at 12/10/244 naloxone (Narcan) injection 0.4 mg, 0.4 mg, [...] Benitez Pentz, DO, 800 mg at 12/11/24 0813 sodium chloride 0.9 % infusion, 250 mL/hr, IntraVENous, PRN, John Victor Manuel Pentz, DO sodium chloride 0.9 % infusion, 5-250 mL/hr, IntraVENous, PRN, John Victor Manuel Pentz, DO sodium chloride 0.9% (NS) flush 5-40 mL, 5-40 mL, IntraVENous, q12h, Johnronda Reynagaew Pentz, DO, 10 mL at 12/10/24 [...] IntraVENous, Once, John Shepherd DO [facility] Progress Note Nephrology following for ESRD. [...] and medication adjustments. Please message me through GutCheck chat with any questions or concerns. Jose G Ramirez, 12/10/2024 2:34 PM [facility] [address], [address] [place] [address] Office: [phone] [1] [START ON 12/11/2024] amLODIPine, 10 mg, [...] Emergency Contact: Deshawn Crystal Mobile Relation: Brother Lode Miner Blasting needed? No Secondary Emergency Contact: Edward Ruggiero Mobile Relation: Significant Other Preferred language: [place] Lode Miner Blasting needed? No Radha Kevin DO Division of Hospitalist Medicine [facility] [1] Past Medical History: Diagnosis [...] History: Medical History[1] LABS: CBC: Recent Labs 12/08/24 2229 WBC 11.2* RBC 2.26* HGB 6.9* HCT 20.9* MCV 92.5 RDW 18.4* PLT 359 BMP: Recent Labs 12/08/24 2229 NA 135* K 2.6* CL 94* CO2 [...] Emergency Contact: Deshawn Crystal Mobile Relation: Brother Lode Miner Blasting needed? No Secondary Emergency Contact: Edward Ruggiero Mobile Relation: Significant Other Preferred language: [place] Lode Miner Blasting needed? No Radha Kevin DO Division of Hospitalist Medicine [facility] [1] Past Medical History: Diagnosis [...] original note were not included. OCCUPATIONAL THERAPY [facility] Name/MRN: Apoorva Gonzalez ([id number]) Date: 12/09/2024 OT orders received and chart reviewed. MRI pending c-spine for r/o discitis, will await results prior to initiating OT eval. Jelly Fischer OT Images from the original note were not included. PHYSICAL THERAPY [facility] Name/MRN: Apoorva Gonzalez ([id number]) Date: 12/09/2024 PT orders received, chart review performed. Patient currently has c-spine MRI pending to r/o discitis. Will hold PT eval and await imaging results. Will re-attempt as patient is appropriate during acute hospital stay. Dinora Jaramillo PT documented in this encounter [facility] 12-18-2024 Hospital Discharge instructions Enriqueta [...] Discharging Nurse: CYNTHIA Ayala Discharging Hospital Unit/Room#: W6-384/W6-456 A Discharging Unit Phone Number: [phone] Emergency Contact: Extended Emergency Contact Information Primary Emergency Contact: Deshawn Crystal Mobile Relation: Brother Lode Miner Blasting needed? No Secondary Emergency Contact: Edward Ruggiero Mobile Relation: Significant Other Preferred language: [place] Lode Miner Blasting needed? No Past Surgical History: Past Surgical History: Procedure Laterality Date AV FISTULA PLACEMENT Left 08/07/2022 COLONOSCOPY N/A 01/25/2024 Performed by Chrissy Gilman MD at [facility]COPY IR CVC TUNNELED DIALYSIS CATHETER PLACEMENT 02/27/2022 IR CVC TUNNELED CATHETER PLACEMENT 02/27/[address] [facility] PROC[facility] IR EMBOLIZATION 01/24/2024 IR EMBOLIZATION 01/24/[address] [facility] VASCULAR SURGERY Left 11/02/2024 EXCISION [...] assistance Toileting Total assistance Feeding Minimal assistance Leakage Tester Minimal assistance Med Delivery no Wound Care [...] Date: 12/12 Discharging to Facility/ Agency Name: [facility] Address: [address] [place] [id number] Dialysis Facility (if applicable) Name: [facility] Address: Dialysis Schedule: Phone: Fax: Mastic Worker/Service Line Layer signature: ICIAN SECTION Name: Apoorva Gonzalez Prognosis: good Condition at Discharge: stable Rehab Potential (if transferring to Rehab): good Recommended Labs or Other Treatments After Discharge: cbc bmp in 3 days The individual is being admitted to a nursing facility directly from an [facility] or a unit of a hospital that is not operated by or licensed by [facility] under section 5119.14 or 5160-3-15.1 5 The individual requires the level of services provided by a nursing facility for the condition for which he or she was treated in the hospital and, Physician Certification: I certify the above information and transfer of Apoorva Gonzalez is necessary for the continuing treatment of the diagnosis listed and that she requires long-term facility for less than 30 days. Update Admission H&P: No change in H&P PHYSICIAN SIGNATURE: documented in this encounter [facility] 12-16-2024 Consult note Associated Order [...] Name: APOORVA GONZALEZ : 1950 Exam Date/Time: 12/16/2024 13:50 Procedure: CT ABDOMEN PELVIS WO IV CONTRAST Ordering Provider: MALISSA, , LETICIA Reason For Exam: Abdominal pain, acute, nonlocalized [...] This note may have been dictated using [employer] Medical Practice Edition 2.6 and/or [employer] Voice Recognition Feature. The document was proofread; however, unrecognized voice recognition chuck boner errors may be present. [1] Past Medical History: Diagnosis Date Chronic kidney disease (CKD) Hemodialysis patient (CMS/HCC) (HCC) Wednesday, , Wednesday History of blood transfusion 02/27/2022 Hypertension Seizure (HCC) Developed seizure-like activity on 02/24 during hospital admission [2] Past Surgical History: Procedure Laterality Date AV FISTULA PLACEMENT Left 08/07/2022 COLONOSCOPY N/A 01/25/2024 Performed by Chrissy Gilman MD at [facility]COPY IR CVC TUNNELED DIALYSIS CATHETER PLACEMENT 02/27/2022 IR CVC TUNNELED CATHETER PLACEMENT 02/27/[address] [facility] PROC[facility] IR EMBOLIZATION 01/24/2024 IR EMBOLIZATION 01/24/[address] [facility] VASCULAR SURGERY Left 11/02/2024 EXCISION [...] John Shepherd DO 5,000 Units at 12/16/24 09 dextrose 5 % infusion 100 mL/hr IntraVENous PRN Ramonita Garentt NP 100 mL/hr at 12/16/24 1438 100 [...] mg 10 mg IntraVENous q6h PRN Radha Kevin DO 10 mg at 12/15/242055 levETIRAcetam (Keppra) tablet 500 mg 500 mg Oral Daily John Shepherd DO 500 mg at 12/16/24 09 Lidocaine 4 % patch 1 patch 1 patch TransDERmal Daily Radha Paredesmin DO melatonin tablet 5 mg 5 mg Oral Nightly PRN Eileen Duncan APRN - INSTRUMENT ASSEMBLER 5 mg at 12/15/242055 meropenem (Merrem) 1,000 mg in sodium chloride 0.9 % 100 mL IVPB 1,000 mg IntraVENous q12h Shamar Bearden MD Stopped at 12/16/24 1637 naloxone (Narcan) injection 0.4 mg 0.4 mg IntraVENous q5 min PRN Radha Kevin DO ondansetron ODT (Zofran-ODT) disintegrating tablet 4 mg 4 mg Oral q8h PRN John Shepherd DO Or ondansetron (Zofran) injection 4 mg 4 mg IntraVENous q6h PRN John Stuartz, DO oxyCODONE (Roxicodone) immediate release tablet 2.5 mg 2.5 mg Oral q4h PRN Radhajacquelyn Paredesmin, DO oxyCODONE (Roxicodone) immediate release tablet 5 mg 5 mg Oral q4h PRN Radha Kuelvamin, DO 5 mg at 12/11/24 2250 polyethylene glycol (PEG) 3350 (Miralax) packet 17 g 17 g Oral Daily PRN John Stuartz, DO 17 g at 12/10/24 1204 pregabalin (Lyrica) capsule 25 mg 25 mg Oral BID PRN Radhajacquelyn Paredesmin, DO 25 mg at 12/11/24 1052 QUEtiapine (SEROquel) tablet 12.5 mg 12.5 mg Oral BID PRN Eileen Duncan, PARK - INSTRUMENT ASSEMBLER sodium chloride 0.9 % infusion 250 mL/hr [...] intermittent dosing (placeholder) Other RX Placeholder Radha Kevin, [4] Social History Socioeconomic History Marital status: [...] 10 min Stress: Stress Concern Present (12/09/2024) Citizen [place] [facility] - Occupational Stress Questionnaire Feeling of Stress : Very much Social Connections: Moderately Integrated (12/09/2024) Social Connection and Isolation Panel [NHANES] Frequency of Communication with Friends and Family: More than three times a week Frequency of Social Gatherings with Friends and Family: Three times a week Attends Latter Day Services: 1 to 4 times per year [...] (MOD) Personally Reviewed/Independently interpreted patient's: [x]Epic notes: []Certified Pesticide Applicator notes, []Nursing notes, []Case management/SW [x]Radiology studies: [...] This note may have been dictated using [employer] Medical Practice Edition 2.6 and/or [employer]hen[employer] Voice Recognition Feature. The document was proofread; however, unrecognized voice recognition chuck boner errors may be present. [1] Patient Active Problem List Diagnosis Hypertensive emergency Gastrointestinal hemorrhage, unspecified gastrointestinal hemorrhage type Anemia Pulmonary edema, acute ([facility]) Shortness of breath COVID-19 Edema of left lower extremity Sepsis, due to unspecified organism, unspecified whether acute organ dysfunction present ([facility]) Seizures ([facility]) ESRD (end stage renal disease) ([facility]) Dialysis patient ([facility]) Wound dehiscence End stage congestive heart failure ([facility]) Fall, initial encounter Fall (on)(from) sidewalk curb, initial encounter Moderate malnutrition ([facility]) ([facility]) [2] Past Medical History: Diagnosis Date Chronic kidney disease (CKD) Hemodialysis patient ([facility]) ([facility]) Wednesday, , Wednesday History of blood transfusion 02/27/2022 Hypertension Seizure ([facility]) Developed seizure-like activity on 02/24 during [...] & deltoids) Fluid Accumulation: Mild Extremities, Generalized Sap Bw Developer Strength: Not Performed Nutrition Assessment: Pt with [...] that within the past year between 105-112#.) [place] Body Weight (lbs) (Calculated): 123 lbs [place] Body Weight (Kg) (Calculated): 56 kg % [place] Body Weight (Calculated): 94.6 % BMI (kg/m2) [...] Alexus Denney RD Contact: Secure chat or *[phone] Associated Order(s): IP CONSULT TO PALLIATIVE CARE [...] ( ) Alternate is s/o Edward Ruggiero [phone]) -goals of care include: 1) discussed with [...] History of seizures - remains on home [facility] Palliative Care Encounter -Code Status: DNR-CCA - will continue to follow for ongoing monitoring of progression of encephalopathy as well as for appropriateness for hospice care due to ESRD, sepsis, encephalopathy - was residing at [facility] Time Stamp: Total of 90 minutes [...] hematoma after that and returned to OR 8/. Presented after a fall at dinner. Her [...] Management Advanced Directives: Health Care Power of Ferry Boat Captain, DNR Functional Assessment: PPS 40% mainly in bed; can't do any work/extensive disease; mainly assistance; normal or reduced intake; full or drowsy or confusion Prognosis: uncertain at this time Spiritual Assessment: No spiritual distress identified Bereavement and Grief: To Be Determined PDMP/OARRS Reviewed: Yes-reviewed Social history: Marital status: Children: unknown Living status: [facility] Work history: unknown status: No [facility]: None ROS: See palliative care ROS/ESAS below; Detail ROS unable to be obtained due to patient's mental status Republic Symptom Assessment Score Republic Score Pain Score (if non-verbal, add .FLACC [...] not consistent with GO at this time Transition Note Initiated: yes Chris Verdugo MD [1] Past Medical History: Diagnosis Date Chronic kidney disease (CKD) Hemodialysis patient (CMS/HCC) ([facility]) Wednesday, , Wednesday History of blood transfusion 02/27/2022 Hypertension Seizure ([facility]) Developed seizure-like activity on 02/24 during hospital admission [2] Past Surgical History: Procedure Laterality Date AV FISTULA PLACEMENT Left 08/07/2022 COLONOSCOPY N/A 01/25/2024 Performed by Chrissy Gilman MD at [facility]COPY IR CVC TUNNELED DIALYSIS CATHETER PLACEMENT 02/27/2022 IR CVC TUNNELED CATHETER PLACEMENT 02/27/[address] [facility] PROC[facility] IR EMBOLIZATION 01/24/2024 IR EMBOLIZATION 01/24/[address] [facility] VASCULAR SURGERY Left 11/02/2024 EXCISION [...] from the original note were not included. [facility] - Infectious Diseases Attending Consult Note [...] 10 min Stress: Stress Concern Present (12/09/2024) Citizen [place] [facility] - Occupational Stress Questionnaire Feeling of Stress : Very much Social Connections: Moderately Integrated (12/09/2024) Social Connection and Isolation Panel [NHANES] Frequency of Communication with Friends and Family: More than three times a week Frequency of Social Gatherings with Friends and Family: Three times a week Attends Latter Day Services: 1 to 4 times per year [...] Date Chronic kidney disease (CKD) Hemodialysis patient ([facility]) ([facility]) Wednesday, , Wednesday History of blood transfusion 02/27/2022 Hypertension Seizure ([facility]) Developed seizure-like activity on 02/24 during hospital admission [2] Past Surgical History: Procedure Laterality Date AV FISTULA PLACEMENT Left 08/07/2022 COLONOSCOPY N/A 01/25/2024 Performed by Chrissy Gilman MD at [facility]COPY IR CVC TUNNELED DIALYSIS CATHETER PLACEMENT 02/27/2022 IR CVC TUNNELED CATHETER PLACEMENT 02/27/[address] [facility] PROC[facility] IR EMBOLIZATION 01/24/2024 IR EMBOLIZATION 01/24/[address] [facility] VASCULAR SURGERY Left 11/02/2024 EXCISION [...] g 12.5 g IntraVENous PRN Ramonita Garnett GREENKEEPER 12.5 g at 12/12/24 2230 gadopiclenol (Vueway) injection 5 mL 5 mL IntraVENous Once PRN Radha Reggiemin, DO glucagon (human recombinant) injection 1 mg [...] mg 10 mg IntraVENous q4h PRN Radha Paredesmin, DO 10 mg at 12/09/24 1521 labetalol (Normodyne,Trandate) injection 10 mg 10 mg IntraVENous q6h PRN Radha Paredesmin, DO 10 mg at 12/11/241999 levETIRAcetam (Keppra) tablet 500 mg 500 mg Oral Daily John Shepherd, DO 500 mg at 12/12/24 0857 Lidocaine 4 % patch 1 patch 1 patch TransDERmal Daily Radha Paredesmin, DO melatonin tablet 5 mg 5 mg Oral Nightly Jonh Shepherd, DO 5 mg at 12/12/246 naloxone [...] 25 mg 25 mg Oral Daily Radha Kevin, DO 25 mg at 12/12/24 0856 sevelamer [...] mL IVPB 750 mg IntraVENous Once Radha Paredesmin, DO vancomycin (Vancocin) intermittent dosing (placeholder) Other RX Placeholder Radhajacquelyn Paredesmin, DO [4] No Known Allergies [5] Family History Problem Relation Name Age of Onset Dementia Mother Stroke Father Prostate cancer Brother 69 Breast cancer Cousin 32 Stomach cancer Mother's Sister 70 Cosigned by Shamar Bearden MD at 12/13/2024 6:51 PM EDT Associated attestation - Shamar Bearden MD - 12/13/2024 6:51 PM EDT [facility] Infectious Disease Attending Note Patient seen and evaluated with resident/student. I performed/re-performed a history, physical examination, and saavedra elements of management of the patient and discussed his/her management with the resident/student. I reviewed the resident/student note and agree with the documented findings and plan of care with changes as noted with italics. Patient well known to me from previous [facility] admissions in the past few months- mostly [...] the original note were not included. [facility] Wound Care CONSULT Note Apoorva Gonzalez AGE: [...] to follow Recommend to follow up at [facility] Outpatient wound care center after hospital [...] 01/25/2024 Performed by Chrissy Gilman MD at [facility]OSCOPY IR CVC TUNNELED DIALYSIS CATHETER PLACEMENT 02/27/2022 IR CVC TUNNELED CATHETER PLACEMENT 02/27/[address] [facility] PROCEDURES IR EMBOLIZATION 01/24/2024 IR EMBOLIZATION 01/24/[address] [facility] VASCULAR SURGERY Left 11/02/2024 EXCISION [...] Apoorva Gonzalez Date of : 1950 Acct: [id number] PCP: Roxie Spain Date of Admission: 12/08/2024 [...] September 2024. She was initially treated at [facility] but was transferred to [facility] for ICU treatment of septic shock, hypoxic respiratory failure, and encephalopathy. She had an infected right thigh hematoma that was irrigated and debrided at [facility] at that time with recurrence [...] Sayed Isael Gilman MD N/A Posted <div class="[id number]"></ div> Home Medications: Prior to Admission medications Medication Sig Start Date End Date Taking? Authorizing Provider acetaminophen (Tylenol) 325 MG tablet Take 650 mg by mouth every 6 hours as needed. 08/24/24 Yes Historical Provider, amLODIPine (Norvasc) 5 MG tablet Take 1 tablet (5 mg) by mouth daily. 11/11/24 11/11/25 Yes Gerard Carrillo, DO B complex-vitamin C-folic acid (Nephro-Coleen) 0.8 [...] 10 min Stress: Stress Concern Present (12/09/2024) Citizen [place] [facility] - Occupational Stress Questionnaire Feeling of Stress : Very much Social Connections: Moderately Integrated (12/09/2024) Social Connection and Isolation Panel [NHANES] Frequency of Communication with Friends and Family: More than three times a week Frequency of Social Gatherings with Friends and Family: Three times a week Attends Latter Day Services: 1 to 4 times per year [...] update plan of care accordingly. Please page curriculum consultant orthopaedic resident for questions or concerns. Balta Chacon M.D. PGY-2 Orthopaedic Surgery Francisco Javier Morales MD Orthopaedic Surgery, PGY-4 [1] Past Medical History: Diagnosis Date Chronic kidney disease (CKD) Hemodialysis patient ([facility]) ([facility]) Wednesday, , Wednesday History of blood transfusion 02/27/2022 Hypertension Seizure ([facility]) Developed seizure-like activity on 02/24 during [...] mL, IntraVENous, Once PRN, Radha Kevin, DO heparin injection 1,200-2,000 Units, 1,200-2,000 Units, [...] 1 patch, 1 patch, TransDERmal, Daily, Radha Kuzmin, DO melatonin tablet 5 mg, 5 mg, [...] PRN, John Reynagaew Pentz, DO sodium chloride 0.9% (NS) flush [...] [] CrCl ml/min (Cockcroft-Gault, if ROLANDO, no WATERMELON INSPECTOR) Consulted By: Dr. Radha Kevin Vancomycin Level: [...] Chat Associated Order(s): IP CONSULT TO GERIATRICS [facility] Inpatient Consult Service Admission [...] patient's brother/POA for my call went to voicemail. Will attempt to reach out at another time. Advance Care Planning Healthcare Power ofAttorney: yes Financial Power of Ferry Boat Captain: yes Living Will:yes Code Status: DNR CCA [...] 500 mg, 500 mg, Oral, Daily, John Victor Manuel Pentz, DO, 500 mg at 12/10/24 0806 Lidocaine 4 % patch 1 patch, 1 patch, TransDERmal, Daily, Radha Kuzmin, DO melatonin tablet 5 mg, 5 mg, Oral, Nightly, John Reynagaew Pentz, DO, 5 mg at 12/09/24 215 [...] Date Chronic kidney disease (CKD) Hemodialysis patient ([facility]/HCC) (HCC) Wednesday, , Wednesday History of blood transfusion 02/27/2022 Hypertension Seizure (HCC) Developed seizure-like activity on 02/24 during hospital admission [4] Past Surgical History: Procedure Laterality Date AV FISTULA PLACEMENT Left 08/07/2022 COLONOSCOPY N/A 01/25/2024 Performed by Chrissy Gilman MD at [facility]COPY IR CVC TUNNELED DIALYSIS CATHETER PLACEMENT 02/27/2022 IR CVC TUNNELED CATHETER PLACEMENT 02/27/[address] [facility] PROCEDURES IR EMBOLIZATION 01/24/2024 IR EMBOLIZATION 01/24/[address] [facility] PROC[facility] VASCULAR SURGERY Left 11/02/2024 EXCISION OF LEFT UPPER EXTREMITY INFECTED GRAFT (JIM) VASCULAR SURGERY Left 11/05/2024 REVISION OR REPAIR, AV FISTULA (JIM) [5] Family History Problem Relation Name Age of Onset Dementia Mother Stroke Father Prostate cancer Brother 69 Breast cancer Cousin 32 Stomach cancer Mother's Sister 70 [facility] Consult Note Consults HPI The patient [...] 10 min Stress: Stress Concern Present (12/09/2024) Citizen Of [place] [facility] - Occupational Stress Questionnaire Feeling of Stress : Very much Social Connections: Moderately Integrated (12/09/2024) Social Connection and Isolation Panel [NHANES] Frequency of Communication with Friends and Family: More than three times a week Frequency of Social Gatherings with Friends and Family: Three times a week Attends [employer] Day Services: 1 to 4 times per year [...] and medication adjustments. Please message me through EPIC chat with any questions or concerns. Sean Castaneda MD 12/09/2024 4:23 PM [facility] [address], [address] [place] [id number] Office: [phone] [1] Past Medical History: Diagnosis Date Chronic kidney disease (CKD) Hemodialysis patient ([facility]/HCC) (HCC) , Wednesday History of blood transfusion 02/27/2022 [...] 650 mg, Rectal, q6h PRN, John Shepherd, amLODIPine (Norvasc) tablet 5 mg, 5 mg, [...] mg, 10 mg, IntraVENous, q6h PRN, Radhajacquelyn Kevin, DO, 10 mg at 12/09/24 1147 levETIRAcetam [...] Oral, Daily PRN, John Victor Manuel Pentz, DO sevelamer carbonate (Renvela) tablet 800 mg, 800 mg, Oral, TID WC, John Benitez Pentz, DO, 800 mg at 12/09/24 1147 sodium chloride 0.9 % infusion, 250 mL/hr, IntraVENous, PRN, John Reynagaew Pentz, DO sodium chloride 0.9 % infusion, 5-250 mL/hr, IntraVENous, PRN, John Victor Manuel Pentz, DO sodium chloride 0.9% (NS) flush 5-40 mL, 5-40 mL, IntraVENous, q12h, John Reynagaew Pentz, DO sodium chloride 0.9% (NS) flush 5-40 mL, 5-40 mL, IntraVENous, PRN, John Benitez Pentz, DO thiamine (Vitamin B1) tablet 250 mg, 250 mg, Oral, Daily, John Reynagaew Pentz, DO, 250 mg at 12/09/24 0841 [...] sodium chloride 0.9% documented in this encounter [facility] 12-12-2024 Note Return Referral plac ed to [facility] via Careport per [facility] request. Await review and response regarding ability to accept. TCC notified. [facility] 12-09-2024 Emergency department Note IV re established [...] completed at this time. Emergency Department Encounter [facility] EMERGENCY DEPT Patient: Apoorva Gonzalez : 1950 [...] for clarification.) Mason Munson MD Acute Care [facility] Mason Munson MD 12/08/24 2237 EMERGENCY DEPARTMENT ENCOUNTER Pt Name: Apoorva Gonzalez [...] [JT] Jacob Laguna DO Diagnoses as of 12/08/24 2347 Fall, initial encounter Closed head injury, initial [...] 5 mg (5 mg Oral Given 12/08/24 2411) potassium chloride CR (Klor-Con M10) ER tablet 40 mEq (40 mEq Oral Given 12/08/24 6948) Prescription drugs considered: Blood transfusion PROCEDURES: Unless [...] 01/25/2024 Performed by Chrissy Gilman MD at [facility] IR CVC TUNNELED DIALYSIS CATHETER PLACEMENT 02/27/2022 IR CVC TUNNELED CATHETER PLACEMENT 02/27/[address] [facility] PROC[facility] IR EMBOLIZATION 01/24/2024 IR EMBOLIZATION 01/24/[address] [facility] VASCULAR SURGERY Left 11/02/2024 EXCISION [...] Year: No Angelica Hines DO Resident 12/08/24 1177 Cosigned by Mason Munson MD at 12/09/2024 9:45 PM EDT Emergency Department Encounter Location: [facility] 6W [...] AM Result Value Ref Range PRODUCT CODE [id number] Unit Number [id number] Unit ABO O Unit RH POS Crossmatch [...] 40 mEq (40 mEq Oral Given 12/08/24 0628) oxyCODONE (Roxicodone) immediate release tablet 5 mg [...] 9:45 PM EDT documented in this encounter [facility] 12-09-2024 Note [facility] 12-09-2024 History and physical note Attending History and Physical Admit Date: 12/08/2024 PCP: Roxie Spain CHIEF COMPLAINT: Fall Reason for Admission: Rule out discitis History Obtained From: patient HISTORY OF PRESENT ILLNESS: Patient is a 74-year-old female with past medical history of ESRD on HD, H AV graft placement (Dr. Rojas 2022), [...] discharge. Plan was for discharge back to [facility] on 11/13/24 however pt required new authorization from [facility] to return to the facility. Auth [...] She is alert. DATA: CBC: Recent Labs 12/08/249 WBC 11.2* RBC 2.26* HGB 6.9* HCT [...] Emergency Contact: Deshawn Crystal Mobile Relation: Brother Lode Miner Blasting needed? No Secondary Emergency Contact: Edward Ruggiero Mobile Relation: Significant Other Preferred language: Botswanan Lode Miner Blasting needed? No [employer] Apoorva Gonzalez : 1950 Primary Care Physician: Roxie Spain The patient and/or family/surrogate voluntarily agreed to participate in ACP services. Patient s cognitive capacity: Alert and oriented Code Status: [_] [FULL CODE - Continue all advanced life support: CPR,intubation,invasive procedures] [X] [DNR-CCA - DO NOT do CPR, intubation] [_] [DNR-EMISSIONS ENGINEER - Comfort care only] [_] DNR form [...] John Shepherd DO Division of Hospitalist Medicine [facility] [1] Past Medical History: Diagnosis Date Chronic kidney disease (CKD) Hemodialysis patient (CMS/HCC) (HCC) Wednesday, , Wednesday History of blood transfusion 02/27/2022 Hypertension Seizure (HCC) Developed seizure-like activity on 02/24 during hospital admission [2] Past Surgical History: Procedure Laterality Date AV FISTULA PLACEMENT Left 08/07/2022 COLONOSCOPY N/A 01/25/2024 Performed by Chrissy Gilman MD at [facility] IR CVC TUNNELED DIALYSIS CATHETER PLACEMENT 02/27/2022 IR CVC TUNNELED CATHETER PLACEMENT 02/27/[address] [facility] IR EMBOLIZATION 01/24/2024 IR EMBOLIZATION 01/24/[address] [facility] VASCULAR SURGERY Left 11/02/2024 EXCISION [...] No Known Allergies documented in this encounter [facility] 12-06-2024 History of Present illness Narrative 12/06/2024 [facility] 1950 Chief Complaint Patient presents with Post-op [...] 01/25/2024 Performed by Chrissy Gilman MD at [facility] IR CVC TUNNELED DIALYSIS CATHETER PLACEMENT 02/27/2022 IR CVC TUNNELED CATHETER PLACEMENT 02/27/[address] [facility] IR EMBOLIZATION 01/24/2024 IR EMBOLIZATION 01/24/[address] [facility] VASCULAR SURGERY Left 11/02/2024 EXCISION OF LEFT UPPER EXTREMITY INFECTED GRAFT (JIM) VASCULAR SURGERY Left 11/05/2024 REVISION OR REPAIR, AV FISTULA (JIM) documented in this encounter [facility] 11-27-2024 History of Present illness Narrative 11/27/2024 Apoorva Navarro [place] 1950 Chief Complaint Patient presents with Post-op [...] 01/25/2024 Performed by Chrissy Gilman MD at [facility] IR CVC TUNNELED DIALYSIS CATHETER PLACEMENT 02/27/2022 IR CVC TUNNELED CATHETER PLACEMENT 02/27/[address] [facility] PROC[facility] IR EMBOLIZATION 01/24/2024 IR EMBOLIZATION 01/24/[address] [facility] VASCULAR SURGERY Left 11/02/2024 EXCISION OF LEFT UPPER EXTREMITY INFECTED GRAFT (JIM) VASCULAR SURGERY Left 11/05/2024 REVISION OR REPAIR, AV FISTULA (JIM) documented in this encounter [facility] 11-22-2024 Emergency department Note Called [facility] [phone]. Spoke with CYNTHIA Perry. Advised pt sent in from dialysis for low hgb of 6.5, [facility] ED hgb 7.8. pt stable and will be sent back. [facility] 11-22-2024 Emergency department Note Called [facility] [phone]. Spoke with CYNTHIA Perry. Advised pt sent in from dialysis for low hgb of 6.5, [facility] ED hgb 7.8. pt stable [...] Family History[3] SOCIAL HISTORY Social History[4] SCREENINGS Sanborn Coma Scale Best Eye Response: Spontaneous Best [...] 01/25/2024 Performed by Chrissy Gilman MD at [facility] IR CVC TUNNELED DIALYSIS CATHETER PLACEMENT 02/27/2022 IR CVC TUNNELED CATHETER PLACEMENT 02/27/[address] [facility] PROC[facility] IR EMBOLIZATION 01/24/2024 IR EMBOLIZATION 01/24/[address] [facility] VASCULAR SURGERY Left 11/02/2024 EXCISION [...] Warner MD 11/22/241714 documented in this encounter [facility] 11-22-2024 Physician Emergency department Note [...] Family History[3] SOCIAL HISTORY Social History[4] SCREENINGS [place] Coma Scale Best Eye Response: Spontaneous Best [...] 01/25/2024 Performed by Chrissy Gilman MD at [facility] IR CVC TUNNELED DIALYSIS CATHETER PLACEMENT 02/27/2022 IR CVC TUNNELED CATHETER PLACEMENT 02/27/[address] [facility] PROC[facility] IR EMBOLIZATION 01/24/2024 IR EMBOLIZATION 01/24/[address] [facility] VASCULAR SURGERY Left 11/02/2024 EXCISION [...] Last Year: No Kev Warner MD 11/22/24 1715 [facility] 11-16-2024 History of Present illness Narrative Pt was followed by the Palliative Care Team during hospitalization at [facility]. Provider is recommending continued Palliative follow up in the community. Referral made too [facility]. Info faxed to [phone] documented in this encounter [facility] 11-15-2024 Note [facility] 11-15-2024 Hospital course Narrative Hospitalist Discharge Summary Apoorva Gonzalez : 1950 Admit date: 11/12/2024 Discharge date: 11/15/2024 Admitting Physician: Edson Graham MD Primary Care Physician: Roxie Spain Visit Status: Observation Code Status: DNR-CCA BRIEF HOSPITAL COURSE: Apoorva is a 74 y.o. female with past medical history of CKD, hemodialysis (/), history of blood transfusion, Hypertension, and seizure disorder who presents from [facility] with chief complaint of left upper extremity graft site complication with bloody drainage. She presents as a direct transfer from [facility] due to complications of left upper extremity [...] on November 05, 2024. On evaluation at [facility] ER she was noted to have a white count of 10.9 (down trended from 12.6 the day prior. Hemoglobin 9.3 (increased from 7.0 the day prior). BMP grossly unremarkable for ESRD patient. ED physician at [facility] discussed with vascular surgery and plan for admit with vascular surgery consult. Case was discussed with [facility] emergency room physician and patient admitted for [...] draws. Plan was for discharge back to [facility] today 11/13/24 however pt requires new authorization from [facility] to return to the facility. Auth [...] this medication? Recommended Follow-up: Roxie Judit [address] [place] [address] Schedule an appointment as soon as possible for a visit [facility] [address] [place] [phone] Complexity of Follow up: [] Moderate Complexity: follow up within 7-14 calendar days (64316) [x] Severe Complexity: follow up within 7 calendar days (12564) Follow up Testing, Pending results or Referrals [...] frame. Signed: Megan Alaniz NP [facility] 11/15/2024, 11:40 AM [1] Past Medical History: Diagnosis Date Chronic kidney disease (CKD) Hemodialysis patient (CMS/HCC) (HCC) Wednesday, , Wednesday History of blood transfusion 02/27/2022 Hypertension Seizure (HCC) Developed seizure-like activity on 02/24 during hospital admission Cosigned by Kevin Do MD at 11/15/2024 8:56 PM EDT documented in this encounter [facility] 11-15-2024 Nurse Note Report called to nurse at [facility]. All questions answered. supervisor logging time scheduled for 1230. [facility] 11-15-2024 Nurse Note Report called to nurse at [facility]. All questions answered. supervisor logging time scheduled for 1230. 03:50 Pt refusing daily lab work, FREDI Decker notified. NO new orders Patient Name: Apoorva Gonzalez Patient : 1950 Acct: [id number] Date of Admission: 11/12/2024 [facility] Code Status: DNR-CCA Allergies: Allergies[1] [...] - Before each treatment: Dialysis Machine No.: [id number] RO Machine Number: [id number] Dialyzer Lot No.: [id number] Tubing Lot Number: [id number] All Connections Secure: Yes Venous Parameters Set: Yes Arterial Parameters Set: Yes NS Bag: Yes Saline Line Double Clamped: Yes Dialyzer: Nipro Prime Volume (mL): 200 mL RO Machine Number: [id number] RO Machine Log Sheet Completed: Yes Machine Alarm Self Test: Completed, Passed (The machine passed all tests at 1208) (11/14/24 1209) Air Foam Detector: Proper Function, Tested Extracorporeal Circuit Tested for Integrity: Yes Machine Conductivity: 13.8 Manual Conductivity: 13.6 Manual Ph: 7.2 Bleach Test (Neg): Yes Bath Temperature: 36 C (96.8 F) Conductivity Meter Serial #: [id number] Machine Functioning Alarm Free? Yes Dialysis Bath: [...] due to increasing venous pressure. UF Removed- 185411/14/24 1515 400 mL/min 1160 ml/hr -190 mmHg [...] and report given to Primary RN at 0218. Primary RN (First Initial, Last Name, Title): [...] (HCC) [3] 03:30 Pt refusing blood work. GREENKEEPER dori made aware. documented in this encounter [facility] 11-15-2024 Miscellaneous Notes Patient Choice Patient Name: APOORVA GONZALEZ Date of : 1950 All Providers Sent Referral Name: [facility] Phone: [phone] Address: [address] [place] [address] MAR & Discharge med list transmitted to [facility] via Careport per TCC request. Electronically signed by [facility] Cholo Verdin [facility] received discharge order. SHERIE completed and bedside nurse aware. [facility] spoke with the patient to make her aware and she agreed to pay any applicable cost for cot transport after TCC explained she could call her insurance to request cost information. Set up cot transport for 12:30 pm with [employer] ([phone]). The patient asked that [facility] call her brother/REJI Hess to make him aware. TCC spoke with Stephanie via phone and provided verbal explanation of CUENCA. He denied any need to appeal discharge. TCC set up transport via cot at 12:30 pm, making the patient, Dinaheidie, bedside nurse, microfilm duplicating unit supervisor and SNF aware of transport time. TCC tasked MANAGED SECURITY SALES CONSULTANT to send DC paperwork to SNF. [employer] spoke with Deshawn- [phone] son regarding [employer] benefits during a skilled stay in a facility. How insurance dictates skilled time in a SNF. Educated on medicaid, rules, and Patient liability in a SNF. [employer] assisted with medicaid application and faxed to [email or web address] to sign paperwork and send back to [employer] to file with Gauri Hensley. clay house worker to follow. Referral placed to [facility] via [facility] per TCC request. Await review and response regarding ability to accept. TCC notified. Care Management Progress Note Short Medical why still here: Awaiting insurance authorization for return to SNF. Planned Discharge Disposition: [facility] Barriers/Today we still Wait: Facility pre-cert Length of Stay (Days): 1 GMLOS: No GMLOS Documented - CM referral acknowledged. - TCC received update that discharge order had been written. - TCC spoke with the patient to introduce self/role and the patient stated she did want to return to the facility. - TCC tasked MANAGED SECURITY SALES CONSULTANT to initiate referral in [facility]. - TCC spoke with admission staff May at [facility] who verified a new auth will be needed for the patient to return to the facility. - [facility] tasked [facility] to initiate [employer] authorization and updated attending that authorization will be need to be approved before the patient can be discharge back to her SNF. Attending acknowledged the update. _ TCC will continue to follow. Patient is from a SNF. 30 day readmission is not warranted. documented in this encounter [facility] 11-15-2024 Progress note Formatting of t his note might be different from the original. Patient Choice Patient Name: APOORVA GONZALEZ Date of : 1950 All Providers Sent Referral Name: Homar Good [facility] Phone: [phone] Address: [address] [place] [address] [facility] 11-15-2024 Progress note Formatting of t his note might be different from the original. MAR & Discharge med list transmitted to [facility] via Careport per TCC request. [facility] 11-15-2024 Progress note Formatting of t his note might be different from the original. [facility] received discharge order. SHERIE completed and bedside nurse aware. [facility] spoke with the patient to make her aware and she agreed to pay any applicable cost for cot transport after TCC explained she could call her insurance to request cost information. Set up cot transport for 12:30 pm with [employer] ([phone]). The patient asked that [facility] call her brother/REJI Hess to make him aware. [facility] spoke with Stephanie via phone and provided verbal explanation of CUENCA. He denied any need to appeal discharge. [facility] set up transport via cot at 12:30 pm, making the patient, Dinaheidipadma, bedside nurse, microfilm duplicating unit supervisor and SNF aware of transport time. TCC tasked MANAGED SECURITY SALES CONSULTANT to send DC paperwork to SNF. [facility] 11-15-2024 History of Present illness Narrative Nephrology [...] any questions or concerns Karis Stone APRN INSTRUMENT ASSEMBLER A-G [facility] [phone] I reviewed with Karis Stone APRN-TAMIR the saavedra portions of the medical history and the findings on physical examination. I discussed the patient s saavedra portions of the diagnosis and concur with the treatment plan as documented in her note. Please message me through RUNform with any questions or concerns. Sean Castaneda [...] a PMHx of CKD, ESRD on HD (T//Sat), history of blood transfusion, HTN, and seizure disorder who presents as a direct transfer from [facility] due to complications of left upper [...] on November 05, 2024. On evaluation at [facility] ER, pt was noted to have a [...] 7.2. Plan was for discharge back to [facility] 11/13/24 however pt requires new authorization from [facility] to return to the facility. Patient [...] On: Kcal/kg Weight Used for Energy Requirements: [place] Weight for Energy Calculation (kg): 55 kg Total Energy Requirements (kcals/day): 7366-8785 kcal/day (30-35) Weight Used for Protein Requirements: [place] Weight in Kg Used for Protein Requirements: 55 kg Estimated Total Protein (g/day): 55-66 g/day (1-1.2) Estimated Daily Total Fluid (ml/day): 0956-8849 ml/day Nutrition Related Findings: Arnol: 17. I&O: [...] 10/06/24 bed scale, 11/07/24 120# bed scale) [place] Body Weight (lbs) (Calculated): 120 lbs [place] Body Weight (Kg) (Calculated): 55 kg % [place] Body Weight (Calculated): 97.5 % BMI (kg/m2) [...] soon to determine Rose Pizarro RD Contact: *[phone] Nephrology Progress Note Following for ESRD Pt [...] chronic Anemia in CKD. Av graft hematoma HOADN as OP follow H&H Transfuse forhgb <7.0 [...] or concerns Karis Stone APRN, CNP A-G [facility] [phone] Pt seen and examined independently by me. I reviewed with MAYANK Mensah the saavedra portions of the medical history and the findings on physical examination. I discussed the patient s saavedra portions of the diagnosis and concur with the treatment plan as documented in her note. Please message me through RUNform with any questions or concerns. Sean Castaneda MD Hospitalist Progress Note 11/14/2024 Subjective: Admit Date: 11/12/2024 PCP: Roxie Spain Room#: 1C-134/1C-134 A BRIEF HOSPITAL COURSE: Apoorva is a 74 y.o. female with past medical history of CKD, hemodialysis (//Wed), history of blood transfusion, Hypertension, and seizure disorder who presents from [facility] with chief complaint of left upper extremity graft site complication with bloody drainage. She presents as a direct transfer from [facility] due to complications of left upper extremity [...] on November 05, 2024. On evaluation at [facility] ER she was noted to have a white count of 10.9 (down trended from 12.6 the day prior. Hemoglobin 9.3 (increased from 7.0 the day prior). BMP grossly unremarkable for ESRD patient. ED physician at [facility] discussed with vascular surgery and plan for admit with vascular surgery consult. Case was discussed with [facility] emergency room physician and will plan to [...] 7.2. Plan was for discharge back to [facility] today 11/13/24 however pt requires new authorization from [facility] to return to the facility. Interval History: Pt seen and evaluated sitting in bed, NAD. Dressing to LUE C/D/I, sensation intact, pulses palpable. Plan for HD treatment today. [facility] Pt noted to have refused AM labs. No overnight issues. Case and plan discussed with patient and bedside nurse. All questions answered. Adult diet Regular; Low Sodium (2 gm) 24HR INTAKE/OUTPUT: Intake/Output Summary (Last 24 hours) at 11/14/2024 0855 Last data filed at 11/13/2024 2109 Gross per 24 hour Intake 50 ml [...] @ 09:15 AM - continue amlodipine, rafy larose - nephrology on consult for HD mgt - plan for tx today - Discharge back to [facility] pending auth - am labs, replace [...] Emergency Contact: Deshawn Crystal Mobile Relation: Brother Lode Miner Blasting needed? No Secondary Emergency Contact: Edward Ruggiero Mobile Relation: Significant Other Preferred language: Botswanan Lode Miner Blasting needed? No Tevin Juárez APRN - INSTRUMENT ASSEMBLER Division of Hospitalist Medicine Acute care [facility] [1] Past Medical History: [...] Hypertension, and seizure disorder who presents from [facility] with chief complaint of left upper extremity graft site complication with bloody drainage. She presents as a direct transfer from [facility] due to complications of left upper extremity [...] on November 05, 2024. On evaluation at [facility] ER she was noted to have a white count of 10.9 (down trended from 12.6 the day prior. Hemoglobin 9.3 (increased from 7.0 the day prior). BMP grossly unremarkable for ESRD patient. ED physician at [facility] discussed with vascular surgery and plan for admit with vascular surgery consult. Case was discussed with [facility] emergency room physician and will plan to [...] 7.2. Plan was for discharge back to [facility] today 11/13/24 however pt requires new authorization from [facility] to return to the facility. Interval [...] @ 09:15 AM - continue amlodipine, rafy larose - nephrology on consult for HD mgt [...] Emergency Contact: Deshawn Crystal Mobile Relation: Brother Lode Miner Blasting needed? No Secondary Emergency Contact: RuggieroEdward Mobile Relation: Significant Other Preferred language: Botswanan Lode Miner Blasting needed? No PARK Madison CNP Division of Hospitalist Medicine [facility] [1] Past Medical History: Diagnosis Date Chronic kidney disease (CKD) Hemodialysis patient (CMS/HCC) ([facility]) Wednesday, , Wednesday History of blood transfusion 02/27/2022 Hypertension Seizure ([facility]) Developed seizure-like activity on 02/24 during [...] original note were not included. PHYSICAL THERAPY [facility] Initial Evaluation Name/MRN: Apoorva Gonzalez ([id number]) Evaluation Date: 11/13/2024 Date of : 1950 Admission Date: 11/12/2024 12:51 PM Age: 74 y.o. Room/Bed: 1C-134/1C-134 A Discharge Recommendation: [facility] Equipment Needed: No Assessment IMPRESSION: Pt [...] Wound dehiscence 11/12/2024 Seizures ([facility]) 11/02/2024 ESRD (end stage renal disease) ([facility]) 11/02/2024 Dialysis patient ([facility]) 11/02/2024 Sepsis, due to unspecified organism, unspecified whether acute organ dysfunction present ([facility]) 10/22/2024 Edema of left lower extremity 10/05/2024 COVID-19 09/14/2024 Shortness of breath 03/02/2024 Pulmonary edema, acute ([facility]) 02/19/2024 Gastrointestinal hemorrhage, unspecified gastrointestinal hemorrhage [...] of Care supervision is transferred to a [facility] Therapy Services Physical Therapist. Goals and/or treatment plan was established in collaboration with patient/family/other representatives. [1] Past Medical History: Diagnosis Date Chronic kidney disease (CKD) Hemodialysis patient ([facility]) ([facility]) Wednesday, , Wednesday History of blood transfusion 02/27/2022 Hypertension Seizure ([facility]) Developed seizure-like activity on 02/24 during hospital admission [2] Past Surgical History: Procedure Laterality Date AV FISTULA PLACEMENT Left 08/07/2022 COLONOSCOPY N/A 01/25/2024 Performed by Chrissy Gilman MD at [facility] ENDOSCOPY IR CVC TUNNELED DIALYSIS CATHETER PLACEMENT 02/27/2022 IR CVC TUNNELED CATHETER PLACEMENT 02/27/[address] [facility] SPECIAL PROCEDURES IR EMBOLIZATION 01/24/2024 IR EMBOLIZATION 01/24/[address] [facility] SPECIAL PROCEDURES Images from the original note [...] am Chris Wills MD PGY-1, Urology Pager# [phone] 11/13/2024 7:31 AM Addendum 9:04 AM Plan [...] Jim Rader MD PGY-4, General Surgery Pager# [phone] 11/13/2024 9:12 AM [1] acetaminophen, 1,000 mg, [...] vascular surgery standpoint. documented in this encounter [facility] 11-15-2024 Nurse Note 03:50 Pt refusing daily lab work, FREDI Decker notified. NO new orders [facility] 11-14-2024 Nurse Note Patient Name: Apoorva Gonzalez Patient : 1950 Acct: [id number] Date of Admission: 11/12/2024 [facility] Code Status: DNR-CCA Allergies: Allergies[1] [...] Lab Results Component Value Date/Time WBC 10.1 11/13/20242422 HGB 7.2 (L) 11/13/2024 1312 HGB 9.1 10/05/2024 1419 HCT 23.2 (L) 11/13/2024 1312 PLT 495 (H) 11/13/20242422 NA 137 11/13/20242422 K 4.0 11/13/20242422 CL 103 11/13/20242422 CO2 23 11/13/20242422 BUN 16 11/13/20242422 CREATININE 3.51 (H) 11/13/20242422 CALCIUM 7.6 (L) 11/13/20242422 PHOS 2.7 10/26/2024 0657 IV Drips and Rate/Dose Continuous Meds[3] Safety - Before each treatment: Dialysis Machine No.: [id number] RO Machine Number: [id number] Dialyzer Lot No.: [id number] Tubing Lot Number: [id number] All Connections Secure: Yes Venous Parameters Set: Yes Arterial Parameters Set: Yes NS Bag: Yes Saline Line Double Clamped: Yes Dialyzer: Nipro Prime Volume (mL): 200 mL RO Machine Number: [id number] RO Machine Log Sheet Completed: Yes Machine Alarm Self Test: Completed, Passed (The machine passed all tests at 1208) (11/14/24 1209) Air Foam Detector: Proper Function, Tested Extracorporeal Circuit Tested for Integrity: Yes Machine Conductivity: 13.8 Manual Conductivity: 13.6 Manual Ph: 7.2 Bleach Test (Neg): Yes Bath Temperature: 36 C (96.8 F) Conductivity Meter Serial #: [id number] Machine Functioning Alarm Free? Yes Dialysis Bath: [...] and report given to Primary RN at 3265. Primary RN (First Initial, Last Name, Title): [...] End stage congestive heart failure (HCC) [3] [facility] 11-14-2024 Consult note Associated Order (s): IP CONSULT TO PSYCHIATRY Images from the original note were not included. [facility] Medical [facility] Behavioral Health Department of Psychiatry Nurse Practitioner Consult Note Please contact Paper Inspector Psychiatry Listed in [facility] On-Call Finder Mon-Fri: From 1700 - 0800 and Weekends IDENTIFYING INFORMATION Name: Apoorva Gonzalez : 1950 TODAY'S DATE: 11/14/24 ADMISSION DATE: 11/12/2024 Reason for Psychiatric Consult: depression, hallucinations Requesting Physician: Dr. Castaneda Consulting Practitioner: MAYANK Mckenzie Hospital Day: 2 SUBJECTIVE: CHIEF COMPLAINT: CC: Chief Complaint Patient presents with Wound Check EMS from [place] for bleeding fistula in left upper arm. DC from [facility] to [place] previously. Principal Problem: Wound dehiscence History obtained from: Patient, Chart Review, and Staff HISTORY OF PRESENT ILLNESS: HPI: Apoorva Gonzalez is a 74 y.o., female who was hospitalized at [facility] for Wound dehiscence on 11/12/2024. PMH of hypertension, ESRD, seizure, hemodialysis (Wednesday, , Wednesday), [facility] AV graft placement (Dr. 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 Pt sent to ED by facility due to increased bleeding at site and transferred to [facility] for vascular surgery eval. Psychiatry consulted for [...] PAST SURGICAL HISTORY Surgical History[5] Social History: [place] [facility] since last hospitalization, finds family to [...] Depression: Not at risk (08/31/2024) Received from [facility] PHQ-2 Patient Health Questionnaire-2 Score: 0 Housing Stability: Low Risk (10/31/2024) Housing Stability Vital Sign Unable to Pay for Housing in the Last Year: No Number of Times Moved in the Last Year: 0 Homeless in the Last Year: No Utilities: Not At Risk (10/31/2024) [facility] Utilities Threatened with loss of utilities: No Health Literacy: Not on file OBJECTIVE: PHYSICAL/PSYCHIATRIC EXAM: Vitals: Vitals: 11/14/24 1445 11/14/24 1500 11/14/24 1515 11/14/24 1530 BP: 150/72 145/91 160/79 135/96 BP Location: Patient Position: Pulse: 74 78 81 84 Resp: Temp: TempSrc: SpO2: Weight: Height: Physical Exam: Physical Exam Vitals and nursing note reviewed. Exam conducted with a manager local present. Constitutional: Appearance: Normal appearance. HENT: Head: [...] QT Interval 338 QTC Interval 458 P [place] 53 QRS [place] 10 T Wave [place] 161 MS Interval 107 Impression Sinus tachycardia LVH with [...] Follow up: peripherally as able Please contact Paper Inspector Psychiatry Listed in [facility] On-Call Finder for urgent needs Mon-Fri: [...] mg, 25 mg, IntraVENous, q6h PRN, Tevin Juárez, DISTRICT COMMERCIAL SUPERINTENDENT - INSTRUMENT ASSEMBLER levETIRAcetam (Keppra) tablet 500 mg, 500 mg, Oral, Daily, Jamie Fling, DO, 500 mg at 11/14/24 0745 melatonin tablet 5 mg, 5 mg, Oral, Nightly, Jamie Fling, DO, 5 mg at 11/13/241951 naloxone (Narcan) injection 0.4 mg, 0.4 mg, IntraVENous, q5 min PRN, Jamie Willetting, DO ondansetron ODT (Zofran-ODT) disintegrating tablet 4 mg, 4 mg, Oral, q8h PRN, 4 mg at 11/13/24 1824 OR ondansetron (Zofran) injection 4 mg, 4 mg, IntraVENous, q6h PRN, Jamie Willetting, DO oxyCODONE (Roxicodone) immediate release tablet 5 [...] 01/25/2024 Performed by Chrissy Gilman MD at [facility] ENDOSCOPY IR CVC TUNNELED DIALYSIS CATHETER PLACEMENT 02/27/2022 IR CVC TUNNELED CATHETER PLACEMENT 02/27/[address] [facility] SPECIAL PROCEDURES IR EMBOLIZATION 01/24/2024 IR EMBOLIZATION 01/24/[address] [facility] SPECIAL PROCEDURES [6] Social History Tobacco Use [...] disease) (HCC) Dialysis patient ([facility]) Wound dehiscence End stage congestive heart failure ([facility]) [place] Work Phone: 11-14-2024 Consult note Associated Order (s): IP CONSULT TO PSYCHIATRY Images from the original note were not included. [facility] Behavioral [facility] Department of Psychiatry Nurse Practitioner Consult Note Please contact Paper Inspector Psychiatry Listed in [facility] On-Call Finder Mon-Fri: From 1700 - 0800 and Weekends IDENTIFYING INFORMATION Name: Apoorva Gonzalez : 1950 TODAY'S DATE: 11/14/24 ADMISSION DATE: 11/12/2024 Reason for Psychiatric Consult: depression, hallucinations Requesting Physician: Dr. Castaneda Consulting Practitioner: MAYANK Mckenzie Hospital Day: 2 SUBJECTIVE: CHIEF COMPLAINT: CC: Chief Complaint Patient presents with Wound Check EMS from [place] for bleeding fistula in left upper arm. DC from [facility] to [place] previously. Principal Problem: Wound dehiscence History obtained from: Patient, Chart Review, and Staff HISTORY OF PRESENT ILLNESS: HPI: Apoorva Navarro Carlos is a 74 y.o., female who was hospitalized at [facility] for Wound dehiscence on 11/12/2024. PMH of hypertension, ESRD, seizure, hemodialysis (Wednesday, , Wednesday), PSH AV graft placement (Dr. 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 Pt sent to ED by facility due to increased bleeding at site and transferred to [facility] for vascular surgery eval. Psychiatry consulted for [...] PAST SURGICAL HISTORY Surgical History[5] Social History: [place] [facility] since last hospitalization, finds family to [...] Depression: Not at risk (08/31/2024) Received from [facility] PHQ-2 Patient Health Questionnaire-2 Score: 0 Housing Stability: Low Risk (10/31/2024) Housing Stability Vital Sign Unable to Pay for Housing in the Last Year: No Number of Times Moved in the Last Year: 0 Homeless in the Last Year: No Utilities: Not At Risk (10/31/2024) [facility] Utilities Threatened with loss of utilities: No Health Literacy: Not on file OBJECTIVE: PHYSICAL/PSYCHIATRIC EXAM: Vitals: Vitals: 11/14/24 1445 11/14/24 1500 11/14/24 1515 11/14/24 1530 BP: 150/72 145/91 160/79 135/96 BP Location: Patient Position: Pulse: 74 78 81 84 Resp: Temp: TempSrc: SpO2: Weight: Height: Physical Exam: Physical Exam Vitals and nursing note reviewed. Exam conducted with a manager local present. Constitutional: Appearance: Normal appearance. HENT: Head: [...] QT Interval 338 QTC Interval 458 P [place] 53 QRS [place] 10 T Wave [place] 161 MS Interval 107 Impression Sinus tachycardia LVH with [...] Follow up: peripherally as able Please contact Paper Inspector Psychiatry Listed in [facility] On-Call Finder for urgent needs Mon-Fri: [...] mg, 25 mg, IntraVENous, q6h PRN, Tevin Juárez, DISTRICT COMMERCIAL SUPERINTENDENT - INSTRUMENT ASSEMBLER levETIRAcetam (Keppra) tablet 500 mg, 500 mg, [...] 01/25/2024 Performed by Chrissy Gilman MD at [facility] ENDOSCOPY IR CVC TUNNELED DIALYSIS CATHETER PLACEMENT 02/27/2022 IR CVC TUNNELED CATHETER PLACEMENT 02/27/[address] [facility] SPECIAL PROCEDURES IR EMBOLIZATION 01/24/2024 IR EMBOLIZATION 01/24/[address] [facility] SPECIAL PROCEDURES [6] Social History Tobacco Use [...] (HCC) Associated Order(s): Inpatient consult to Nephrology [facility] Consult Note Inpatient consult to Nephrology [...] from avg site. She was transferred to [facility] for vascular surgery evaluation. Pt seen in [...] reach out with any questions or concerns Karisedd Stone APRN INSTRUMENT ASSEMBLER A-G GREENKEEPER [facility] [phone] Pt seen and examined independently by me. [...] [facility] AV graft placement (Dr. 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 Patient was admitted 10/22-11/11. During that time her graft was excised, she underwent repeat surgery for hematoma evacuation, infectious disease was consulted and recommended Bactrim renally dosed through November 13. She represented today at [facility] from senior care for bleeding from her LUE former graft site. She was transferred to [facility] for vascular surgery evaluation. Work up shows [...] tomorrow after repeat evaluation - LAURA Jimenez curriculum consultant for Dr. Rojas Medical History[1] Surgical History[2] [...] present, keeps thinking she is in her senior care Psychiatric: Mood and Affect: Mood normal. Behavior: [...] Date Chronic kidney disease (CKD) Hemodialysis patient ([facility]/HCC) ([facility]) Wednesday, , Wednesday History of blood transfusion 02/27/2022 Hypertension Seizure ([facility]) Developed seizure-like activity on 02/24 during hospital admission [2] Past Surgical History: Procedure Laterality Date AV FISTULA PLACEMENT Left 08/07/2022 COLONOSCOPY N/A 01/25/2024 Performed by Chrissy Gilman MD at [facility] ENDOSCOPY IR CVC TUNNELED DIALYSIS CATHETER PLACEMENT 02/27/2022 IR CVC TUNNELED CATHETER PLACEMENT 02/27/[address] [facility] SPECIAL PROCEDURES IR EMBOLIZATION 01/24/2024 IR EMBOLIZATION 01/24/[address] [facility] SPECIAL PROCEDURES [3] [4] PRN medications: collagenase, [...] 11:14 AM EDT documented in this encounter [facility] 11-14-2024 Progress note Formatting of t his note might be different from the original. [employer] spoke with Deshawn- [phone] son regarding [employer] benefits during a skilled stay in a facility. How insurance dictates skilled time in a SNF. Educated on medicaid, rules, and Patient liability in a SNF. [employer] assisted with medicaid application and faxed to [email or web address] to sign paperwork and send back to [employer] to file with [facility]. clay house worker to follow. [facility] 11-14-2024 Nurse Note 03:30 Pt refusing blood work. BRAYDEN meadows made aware. [facility] 11-13-2024 Note Referral placed to [facility] via Careport per TCC request. Await review and response regarding ability to accept. TCC notified. [facility] 11-13-2024 Progress note Formatting of t his note might be different from the original. Referral placed to [facility] via Careport per TCC request. Await review and response regarding ability to accept. TCC notified. [facility] 11-13-2024 Progress note Formatting of t his note might be different from the original. Care Management Progress Note Short Medical why still here: Awaiting insurance authorization for return to SNF. Planned Discharge Disposition: Correction Facility Barriers/Today we still Wait: Facility pre-cert Length of Stay (Days): 1 GMLOS: No GMLOS Documented - CM referral acknowledged. - TCC received update that discharge order had been written. - TCC spoke with the patient to introduce self/role and the patient stated she did want to return to the facility. - TCC tasked MANAGED SECURITY SALES CONSULTANT to initiate referral in [facility]. - TCC spoke with admission staff May at [facility] who verified a new auth will be needed for the patient to return to the facility. - TCC tasked MANAGED SECURITY SALES CONSULTANT to initiate [employer] authorization and updated attending that authorization will be need to be approved before the patient can be discharge back to her SNF. Attending acknowledged the update. _ TCC will continue to follow. [facility] 11-13-2024 Hospital Discharge instructions Tevin Juárez APRN - INSTRUMENT ASSEMBLER - 11/13/2024 2:19 PM EDT Vascular -Follow [...] Graham MD PCP: Roxie Spain [facility] Unit/Room[facility] 1C-134/1C-134 A Discharging Unit Phone Number: [phone] Emergency Contact: Extended Emergency Contact Information Primary Emergency Contact: Deshawn Crystal Mobile Relation: Brother Lode Miner Blasting needed? No Secondary Emergency Contact: Edward Ruggiero Mobile Relation: Significant Other Preferred language: Botswanan Lode Miner Blasting needed? No Past Surgical History: Past Surgical History: Procedure Laterality Date AV FISTULA PLACEMENT Left 08/07/2022 COLONOSCOPY N/A 01/25/2024 Performed by Chrissy Gilman MD at [facility] ENDOSCOPY IR CVC TUNNELED DIALYSIS CATHETER PLACEMENT 02/27/2022 IR CVC TUNNELED CATHETER PLACEMENT 02/27/[address] [facility] SPECIAL PROCEDURES IR EMBOLIZATION 01/24/2024 IR EMBOLIZATION 01/24/[address] [facility] SPECIAL PROCEDURES Immunization History: Immunization History Administered [...] assistance Toileting Minimal assistance Feeding Minimal assistance Leakage Tester Independent Med Delivery yes Wound Care Documentation [...] on 11/12/24 Discharging to Facility/ Agency Name: [facility] Address: [address] [place] [address] Fax: Dialysis Facility (if applicable) Name: Address: Dialysis Schedule: Phone: Fax: Mastic Worker/Service Line Layer signature: ICIAN SECTION Name: Apoorva Navarro Carlos Prognosis: good Condition at Discharge: stable Rehab Potential (if transferring to Rehab): good Recommended Labs or Other Treatments After Discharge: NA The individual is being admitted to a nursing facility directly from an [facility] or a unit of a [facility] that is not operated by or licensed by [facility] under section 5119.14 or 5160-3-15.1 5 The individual requires the level of services provided by a nursing facility for the condition for which he or she was treated in the hospital and, Physician Certification: I certify the above information and transfer of Apoorva Gonzalez is necessary for the continuing treatment of the diagnosis listed and that she requires long-term facility for less than 30 days. Update Admission H&P: No change in H&P PHYSICIAN SIGNATURE: documented in this encounter [facility] 11-13-2024 Consult note Associated Order (s): Inpatient consult to Nephrology [facility] Nephrology Consult Note Inpatient consult to Nephrology Consult performed by: Karis Stone NP Consult ordered by: Aramis Blankenship MD HPI Patient is a 74 y.o. female who is admitted to hospital with complaints of bleeding AVG site . Nephrology consulted in view of ESRD. PMHx hypertension, ESRD, seizure, hemodialysis (Wednesday, , Wednesday), [facility] AV graft placement (Dr. Rojas 2022), excision [...] from avg site. She was transferred to [facility] for vascular surgery evaluation. Pt seen in [...] any questions or concerns Karis Stone APRN INSTRUMENT ASSEMBLER A-G GREENKEEPER [facility] [phone] Pt seen and examined independently by me. I reviewed with Karis Stone APRN-TAMIR the saavedra portions of the medical history and the findings on physical examination. I discussed the patient s saavedra portions of the diagnosis and concur with the treatment plan as documented in her note. Please message me through [employer]form with any questions or concerns. Sean Castaneda [...] Jamie Fling, DO, 1,000 mg at 11/13/24 09 amLODIPine (Norvasc) tablet 5 mg, 5 mg, [...] 800 mg, 800 mg, Oral, TID WC, Jmaie Fling, DO, 800 mg at 11/13/24 0908 [...] OR ondansetron, oxyCODONE, polyethylene glycol (PEG) 3350 [facility] 11-13-2024 Progress note Formatting of t his note might be different from the original. Patient is from a SNF. 30 day readmission is not warranted. T [facility] 11-12-2024 Consult note Associated Order (s): IP CONSULT TO VASCULAR SURGERY Images from the original note were not included. Vascular Surgery Consultation Note Reason for Consult: LUE wound HISTORY OF PRESENT ILLNESS: The patient is a 74 y.o. female with PMHx hypertension, ESRD, seizure, hemodialysis (Wednesday, , Wednesday), [facility] AV graft placement (Dr. 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 Patient was admitted 10/22-11/11. During that time her graft was excised, she underwent repeat surgery for hematoma evacuation, infectious disease was consulted and recommended Bactrim renally dosed through November 13. She represented today at [facility] from senior care for bleeding from her LUE former graft site. She was transferred to [facility] for vascular surgery evaluation. Work up shows [...] tomorrow after repeat evaluation - LAURA Jimenez curriculum consultant for Dr. Rojas Medical History[1] Surgical History[2] [...] present, keeps thinking she is in her senior care Psychiatric: Mood and Affect: Mood normal. Behavior: [...] Date Chronic kidney disease (CKD) Hemodialysis patient ([facility]) ([facility]) Wednesday, , Wednesday History of blood transfusion 02/27/2022 Hypertension Seizure ([facility]) Developed seizure-like activity on 02/24 during hospital admission [2] Past Surgical History: Procedure Laterality Date AV FISTULA PLACEMENT Left 08/07/2022 COLONOSCOPY N/A 01/25/2024 Performed by Chrissy Gilman MD at [facility] ENDOSCOPY IR CVC TUNNELED DIALYSIS CATHETER PLACEMENT 02/27/2022 IR CVC TUNNELED CATHETER PLACEMENT 02/27/[address] [facility] SPECIAL PROCEDURES IR EMBOLIZATION 01/24/2024 IR EMBOLIZATION 01/24/[address] [facility] SPECIAL PROCEDURES [3] [4] PRN medications: collagenase, [...] Jimenez MD at 11/13/2024 11:14 AM EDT [facility] [employer] Work Phone: 11-12-2024 History and physical note [...] She presents as a direct transfer from [facility] due to complications of left upper extremity [...] on November 05, 2024. On evaluation at [facility] ER she was noted to have a white count of 10.9 (down trended from 12.6 the day prior. Hemoglobin 9.3 (increased from 7.0 the day prior). BMP grossly unremarkable for ESRD patient. ED physician at [facility] discussed with vascular surgery and plan for admit with vascular surgery consult. Case discussed with [facility] emergency room physician and will plan to [...] Emergency Contact: Deshawn Crystal Mobile Relation: Brother Lode Miner Blasting needed? No Secondary Emergency Contact: Edward Ruggiero Mobile Relation: Significant Other Preferred language: Botswanan Lode Miner Blasting needed? No ADVANCED [employer] PLANNING Apoorva Gonzalez : 1950 Primary Care Physician: Roxie Spain The patient and/or family/surrogate voluntarily agreed to participate in ACP services. Patient s cognitive capacity: Intact Code Status: [_] [FULL CODE - Continue all advanced life support: CPR,intubation,invasive procedures] [X_] [DNR-CCA - DO NOT do CPR, intubation] [_] [DNR-EMISSIONS ENGINEER - Comfort care only] [_] DNR form [...] Jamie Camarena DO Division of Hospitalist Medicine [facility] [1] Past Medical History: Diagnosis Date Chronic kidney disease (CKD) Hemodialysis patient (CMS/HCC) (HCC) Wednesday, , Wednesday History of blood transfusion 02/27/2022 Hypertension Seizure ([facility]) Developed seizure-like activity on 02/24 during hospital admission [2] Past Surgical History: Procedure Laterality Date AV FISTULA PLACEMENT Left 08/07/2022 COLONOSCOPY N/A 01/25/2024 Performed by Chrissy Gilman MD at [facility] ENDOSCOPY IR CVC TUNNELED DIALYSIS CATHETER PLACEMENT 02/27/2022 IR CVC TUNNELED CATHETER PLACEMENT 02/27/[address] [facility] SPECIAL PROCEDURES IR EMBOLIZATION 01/24/2024 IR EMBOLIZATION 01/24/2024 Jovan Glynn MD [facility] SPECIAL PROCEDURES [3] Family History Problem Relation [...] tablet 1,000 mg, 1,000 mg, Oral, q8h, Jaime Fling, DO [START ON 11/13/2024] amLODIPine (Norvasc) [...] g, Oral, Daily PRN, Jamie Fling, DO [START ON 11/13/2024] sevelamer carbonate (Renvela) tablet 800 mg, 800 mg, Oral, TID WC, Jamie Fling, DO [START ON 11/13/2024] sulfamethoxazole-trimethoprim (Bactrim DS) 800-160 MG per tablet 1 tablet, 1 tablet, Oral, Daily, Jamie Fling, DO [5] No Known Allergies [facility] [employer] Work Phone: 11-12-2024 Note [facility] [employer] 11-12-2024 History and physical note Attending History and Physical Admit Date: 11/12/2024 PCP: Roxie Spain CHIEF COMPLAINT: Left upper extremity wound Reason for Admission: Left upper extremity graft site complication History Obtained From: patient HISTORY OF PRESENT ILLNESS: Apoorva is a 74 y.o. female with past medical history below who presents with chief complaint listed above. She presents as a direct transfer from [facility] due to complications of left upper extremity [...] on November 05, 2024. On evaluation at [facility] ER she was noted to have a white count of 10.9 (down trended from 12.6 the day prior. Hemoglobin 9.3 (increased from 7.0 the day prior). BMP grossly unremarkable for ESRD patient. ED physician at [facility] discussed with vascular surgery and plan for admit with vascular surgery consult. Case discussed with [facility] emergency room physician and will plan to [...] She is alert. DATA: CBC: Recent Labs 11/10/248 11/11/24 0539 11/12/24 1450 WBC 13.2* 12.6* [...] Emergency Contact Information Primary Emergency Contact: Deshawn Crsytal Mobile Relation: Brother Lode Miner Blasting needed? No Secondary Emergency Contact: RuggieroEdward Mobile Relation: Significant Other Preferred language: Botswanan Lode Miner Blasting needed? No [employer] Apoorvapadma [place] : 1950 Primary Care Physician: Roxie Spain The patient and/or family/surrogate voluntarily agreed to participate in ACP services. Patient s cognitive capacity: Intact Code Status: [_] [FULL CODE - Continue all advanced life support: CPR,intubation,invasive procedures] [X_] [DNR-CCA - DO NOT do CPR, intubation] [_] [DNR-EMISSIONS ENGINEER - Comfort care only] [_] DNR form [...] and/or family/surrogate. Jamie Camarena DO [facility] [1] Past Medical History: Diagnosis Date Chronic kidney disease (CKD) Hemodialysis patient (CMS/HCC) (HCC) Wednesday, , Wednesday History of blood transfusion 02/27/2022 Hypertension Seizure ([facility]) Developed seizure-like activity on 02/24 during hospital admission [2] Past Surgical History: Procedure Laterality Date AV FISTULA PLACEMENT Left 08/07/2022 COLONOSCOPY N/A 01/25/2024 Performed by Chrissy Gilman MD at [facility] ENDOSCOPY IR CVC TUNNELED DIALYSIS CATHETER PLACEMENT 02/27/2022 IR CVC TUNNELED CATHETER PLACEMENT 02/27/[address] [facility] SPECIAL PROCEDURES IR EMBOLIZATION 01/24/2024 IR EMBOLIZATION 01/24/[address] [facility] SPECIAL PROCEDURES [3] Family History Problem Relation [...] No Known Allergies documented in this encounter [facility] 11-12-2024 Emergency department Note Moody Harman at bedside for transport to [facility] for admission. Packet/blue card sent with crew. [facility] 11-12-2024 Emergency department Note Moody Harman at bedside for transport to [facility] for admission. Packet/blue card sent with crew. Report called to [facility]. Pt awaiting transport, resting comfortably at this time, side rails up x2, curtain remains open for safety. Emergency Department Encounter [facility] ED Patient: Apoorva Gonzalez : [...] to admit the patient to medicine at [facility], and will see her inpatient. Patient care also discussed with Dr. Camarena, [facility] hospitalist, who accepted the patient for [...] for clarification.) Lorna Moore MD Acute Care [facility] Roz Moore MD 11/12/24 1444 documented in this encounter [facility] 11-12-2024 Emergency department Note Report called to [facility]. Pt awaiting transport, resting comfortably at this time, side rails up x2, curtain remains open for safety. [facility] 11-12-2024 Physician Emergency department Note Emergency Department Encounter [facility] ED Patient: Apoorva Gonzalez : 1950 Date of Evaluation: 11/12/2024 ED Supervising Physician: Lorna Mooer MD I independently examined and evaluated Apoorva [...] wound dehiscence I reviewed external records from: [facility] demonstrating 1 prescription, for oxycodone. I also [...] to admit the patient to medicine at [facility], and will see her inpatient. Patient care also discussed with Dr. Camraena, [facility] hospitalist, who accepted the patient for [...] dictating provider for clarification.) Lorna Moore MD [facility] Roz Moore MD 11/12/24 1444 [facility] 11-11-2024 Nurse Note [facility] to [facility] Called report to geraldine at [facility]. Pt brother at bedside aware of dc. Patient Name: Apoorva Gonzalez Patient : 1950 Acct: [id number] Date of Admission: 10/22/2024 [facility] [...] (H) 11/11/2024 0539 HGB 7.0 (L) 11/11/2024 05 HGB 9.1 10/05/2024 1419 HCT 21.8 (L) 11/11/2024 0539 PLT 480 (H) 11/11/2024 0539 NA 138 11/11/2024 0539 K 4.5 11/11/2024 05 CL 105 11/11/2024 0539 CO2 24 11/11/2024 0539 BUN 26 (H) 11/11/2024 05 CREATININE 4.23 (H) 11/11/2024 05 CALCIUM 7.3 (L) 11/11/2024 05 PHOS 2.7 10/26/2024 0657 IV Drips and Rate/Dose Continuous Meds[3] Safety - Before each treatment: Dialysis Machine No.: [id number] RO Machine Number: [id number] Dialyzer Lot No.: [id number] Tubing Lot Number: [id number] All Connections Secure: Yes Venous Parameters Set: Yes Arterial Parameters Set: Yes NS Bag: Yes Saline Line Double Clamped: Yes Dialyzer: Nipro Prime Volume (mL): 200 mL RO Machine Number: [id number] RO Machine Log Sheet Completed: Yes Machine Alarm Self Test: Completed, Passed (The machine passed all tests at 0925) (11/11/24 0936) Air Foam Detector: Tested, Proper Function Extracorporeal Circuit Tested for Integrity: Yes Machine Conductivity: 13.9 Manual Conductivity: 14.2 Manual Ph: 7.4 Bleach Test (Neg): Yes Bath Temperature: 36 C (96.8 F) Conductivity Meter Serial #: [id number] Machine Functioning Alarm Free? Yes Dialysis Bath: K+ (Potassium): 2 Ca+ (Calcium): 2.5 Na+ (Sodium): 138 HCO3 (Bicarb): 32 Bicarbonate Concentrate Lot No.: [id number] Acid Concentrate Lot No.: [id number] Chlorine Testing - Before each treatment and every 4 hours: Time On: 0946 Time Off: 1302 Treatment Goal: 1L Weight Height: 162.6 cm (5' 4") (10/26/24 1438) Weight: 53.2 kg (117 lb 4.6 oz) (11/10/24 0600) BMI (Calculated): 20.12 (11/10/24 06) 1st check: less than 0.1 ppm [...] returned to patient per policy. UF Removed- 2199 Vital Signs Patient Vitals for the past [...] wrap in place to left upper extremity. Macclenny and blanchable tissues noted to bilateral heels. Pt currently followed by Wound GREENKEEPER group for wounds to sacrum extending to left buttock. For sacrum/left buttock wound assessment and treatment plan, please see Wound/Ostomy GREENKEEPER progress notes. Instructed pt on pressure injury prevention and importance of turning/postioning every 2hrs while in bed and every 15 min while sitting in chair. Instructed on use and care of waffle chair cushion. Verbalized understanding. Prevention Measures in place, including: [place] sheet with pillows/wedges, Foam heel protectors (obtained and applied), Heels elevated off bed on pillows, Zinc/Moisture Barrier ointment, Waffle chair cushion. Skin Care precaution order set in place. Will continue to follow pt. Please Vocera for any questions or concerns. Kirti High RN Patient Name: Apoorva Gonzalez Patient : 1950 Acct: [id number] Date of Admission: 10/22/2024 [facility] [...] Edema RLE Edema LLE Edema Pain Interventions 11/09/247 -- -- -- Clear;Diminished -- -- -- [...] WBC 16.0 (H) 11/09/2024225 HGB 8.6 (L) 11/09/2024749 HGB 9.1 10/05/2024 1419 HCT 25.9 (L) 11/09/2024749 PLT 414 11/09/2024225 NA 134 (L) 11/09/2024225 K 4.5 11/09/2024225 CL 102 11/09/2024225 CO2 24 11/09/2024225 BUN 24 (H) 11/09/2024225 CREATININE 4.02 (H) 11/09/2024225 CALCIUM 7.4 (L) 11/09/2024225 PHOS 2.7 10/26/2024656 IV Drips and Rate/Dose Continuous Meds[3] Safety - Before each treatment: Dialysis Machine No.: [id number] RO Machine Number: [id number] Dialyzer Lot No.: [id number] Tubing Lot Number: [id number] All Connections Secure: Yes Venous Parameters Set: Yes Arterial Parameters Set: Yes NS Bag: Yes Saline Line Double Clamped: Yes Dialyzer: Nipro Prime Volume (mL): 250 mL RO Machine Number: [id number] RO Machine Log Sheet Completed: Yes Machine Alarm Self Test: Completed, Passed (11/09/24751) Air Foam Detector: Tested, Proper Function, pH Reading Extracorporeal Circuit Tested for Integrity: Yes Machine Conductivity: 13.8 Manual Conductivity: 14 Manual Ph: 7.2 Bleach Test (Neg): Yes Bath Temperature: 36 C (96.8 F) Conductivity Meter Serial #: [id number] Machine Functioning Alarm Free? Yes Dialysis Bath: K+ (Potassium): 2 Ca+ (Calcium): 2.5 Na+ (Sodium): 138 HCO3 (Bicarb): 32 Bicarbonate Concentrate Lot No.: [id number] Acid Concentrate Lot No.: [id number] Chlorine Testing - Before each treatment and every 4 hours: Time On: 08 Time Off: 1106 Treatment Goal: 1 kg [...] 120 mmHg 70 600 Yes B. Marrow, INSTRUMENT ASSEMBLER & vasc surgery at beside, increase UF [...] currently receiving 1 unit of blood. Notified construction foreman of complaints of pain and findings awaiting reply. Blood sugar 67 orange juice given pt resting quietly , denies any s/s of hypoglycemia. 1L removed Patient Name: Apoorva Gonzalez Patient : 1950 Acct: [id number] Date of Admission: 10/22/2024 [facility] [...] Regular Other (Comment) None (Room air) Diminished [place] Warm;Dry Soft;Rounded Active Right lower extremity;Left lower extremity -- None None +1 +2 11/07/24 1259 Alert (0) x4 Regular Other (Comment) None (Room air) Diminished [place] Warm;Dry Soft;Rounded Active Right lower extremity;Left lower extremity -- None None +1 +2 Labs Lab Results Component Value Date/Time WBC 14.1 (H) 11/07/2024 010 HGB 7.6 (L) 11/07/2024 010 HGB 9.1 10/05/2024 1419 HCT 23.6 (L) 11/07/2024 0108 PLT 377 11/07/2024 0108 NA 139 11/07/2024 0108 K 4.8 11/07/2024 0108 CL 105 11/07/2024 0108 CO2 23 11/07/2024 0108 BUN 37 (H) 11/07/2024107 CREATININE 4.35 (H) 11/07/2024 010 CALCIUM 7.2 (L) 11/07/2024107 PHOS 2.7 10/26/202457 IV Drips and Rate/Dose Continuous Meds[3] Safety - Before each treatment: Dialysis Machine No.: [id number] RO Machine Number: [id number] Dialyzer Lot No.: [id number] Tubing Lot Number: [id number] All Connections Secure: Yes Venous Parameters Set: Yes Arterial Parameters Set: Yes NS Bag: Yes Saline Line Double Clamped: Yes Dialyzer: Nipro Prime Volume (mL): 200 mL RO Machine Number: [id number] RO Machine Log Sheet Completed: Yes Machine Alarm Self Test: Completed, Passed (11/07/24 0943) Air Foam Detector: Tested, Proper Function, pH Reading Extracorporeal Circuit Tested for Integrity: Yes Machine Conductivity: 13.6 Manual Conductivity: 13.4 Manual Ph: 7.4 Bleach Test (Neg): Yes Bath Temperature: 36 C (96.8 F) Conductivity Meter Serial #: [id number] Machine Functioning Alarm Free? Yes Dialysis Bath: K+ (Potassium): 2 Ca+ (Calcium): 2.5 Na+ (Sodium): 138 HCO3 (Bicarb): 32 Bicarbonate Concentrate Lot No.: [id number] Acid Concentrate Lot No.: [id number] Chlorine Testing - Before each treatment and every 4 hours: Time On: 942 Time Off: 1243 Treatment Goal: 1 kg Weight Height: 162.6 cm (5' 4") (10/26/24 143) Weight: 54.7 kg (120 lb 11.2 oz) [...] Name: Apoorva Gonzalez Patient : 1950 Acct: [id number] Date of Admission: 10/22/2024 [facility] [...] (H) 11/04/2024 0100 CALCIUM 7.2 (L) 11/04/2024 0100 PHOS 2.7 10/26/2024 0657 IV Drips and Rate/Dose Continuous Meds[3] Safety - Before each treatment: Dialysis Machine No.: [id number] RO Machine Number: [id number] Dialyzer Lot No.: [id number] Tubing Lot Number: [id number] All Connections Secure: Yes Venous Parameters Set: Yes Arterial Parameters Set: Yes NS Bag: Yes Saline Line Double Clamped: Yes Dialyzer: Nipro Prime Volume (mL): 250 mL RO Machine Number: [id number] RO Machine Log Sheet Completed: Yes Machine Alarm Self Test: Completed, Passed (11/04/24939) Air Foam Detector: Tested, Proper Function, pH Reading Extracorporeal Circuit Tested for Integrity: Yes Machine Conductivity: 13.9 Manual Conductivity: 14 Manual Ph: 7.2 Bleach Test (Neg): Yes Bath Temperature: 36 C (96.8 F) Conductivity Meter Serial #: [id number] Machine Functioning Alarm Free? Yes Dialysis Bath: K+ (Potassium): 2 Ca+ (Calcium): 2.5 Na+ (Sodium): 138 HCO3 (Bicarb): 32 Bicarbonate Concentrate Lot No.: [id number] Acid Concentrate Lot No.: [id number] Chlorine Testing - Before each treatment and [...] See orders Notification Date: 11/04/24 Notification Time: 0138 Provider Role: Consulting physician Method of Communication: Secure chat Response: See orders Notification Time: 0138 Handoff complete and report given to Primary [...] Name: Apoorva Gonzalez Patient : 1950 Acct: [id number] Date of Admission: 10/22/2024 [facility] [...] - Before each treatment: Dialysis Machine No.: [id number] Machine Number: [id number] Dialyzer Lot No.: [id number] Tubing Lot Number: [id number] All Connections Secure: Yes Venous Parameters Set: Yes Arterial Parameters Set: Yes NS Bag: Yes Saline Line Double Clamped: Yes Dialyzer: Nipro Prime Volume (mL): 200 mL Machine Number: [id number] RO Machine Log Sheet Completed: Yes Machine Alarm Self Test: Completed, Passed (The machine passed all tests at 1520.) (11/02/24 1527) Air Foam Detector: Proper Function, Tested Extracorporeal Circuit Tested for Integrity: Yes Machine Conductivity: 13.5 Manual Conductivity: 13.6 Manual Ph: 7.2 Bleach Test (Neg): Yes Bath Temperature: 36 C (96.8 F) Conductivity Meter Serial #: [id number] Machine Functioning Alarm Free? Yes Dialysis Bath: K+ (Potassium): 2 Ca+ (Calcium): 2.5 Na+ (Sodium): 138 HCO3 (Bicarb): 32 Bicarbonate Concentrate Lot No.: [id number] Acid Concentrate Lot No.: [id number] Chlorine Testing - Before each treatment and [...] number verified in chart Patient transferred to [facility] with the transport team.she is going to [facility] room number [id number].Handoff given to the [facility] nurse. Patient Name: Apoorva Gonzalez Patient : 1950 Acct: [id number] Date of Admission: 10/22/2024 Room/Bed: [facility] A Code Status: DNR-CCA Allergies: Allergies[1] [...] 10/31/24 0815 -- -- -- -- -- [place];Red Warm;Dry Soft;Flat Active Left lower extremity;Right lower extremity Non-pitting None None None None 10/31/24 1116 Alert (0) 2 Regular None (Room air) Diminished [place] Warm;Dry Soft -- Left lower extremity -- -- -- -- +1 10/31/24 1440 Alert (0) 2 Regular None (Room air) Diminished [place] Warm;Dry Soft Active Left lower extremity -- -- -- -- +1 Labs Lab Results Component Value Date/Time WBC 17.2 (H) 10/31/2024525 HGB 8.5 (L) 10/31/2024525 HGB 9.1 10/05/2024 1419 HCT 26.6 (L) 10/31/2024525 PLT 531 (H) 10/31/2024525 NA 143 10/31/2024525 K 4.4 10/31/2024525 CL 110 (H) 10/31/2024525 CO2 23 10/31/2024525 BUN 27 (H) 10/31/2024525 CREATININE 4.44 (H) 10/31/2024525 CALCIUM 8.0 (L) 10/31/2024525 PHOS 2.7 10/26/2024656 IV Drips and Rate/Dose Continuous Meds[3] Safety - Before each treatment: Dialysis Machine No.: [id number] RO Machine Number: [id number] Dialyzer Lot No.: [id number] Tubing Lot Number: [id number] All Connections Secure: Yes Venous Parameters Set: Yes Arterial Parameters Set: Yes NS Bag: Yes Saline Line Double Clamped: Yes Dialyzer: Nipro Prime Volume (mL): 200 mL RO Machine Number: [id number] RO Machine Log Sheet Completed: Yes Machine Alarm Self Test: Completed, Passed (Machine passed all tests at 1057) (10/31/24 1116) Air Foam Detector: Tested, Proper Function Extracorporeal Circuit Tested for Integrity: Yes Machine Conductivity: 14.1 Manual Conductivity: 14 Manual Ph: 7.4 Bleach Test (Neg): Yes Bath Temperature: 36 C (96.8 F) Conductivity Meter Serial #: [id number] Machine Functioning Alarm Free? Yes Dialysis Bath: K+ (Potassium): 3 Ca+ (Calcium): 2.5 Na+ (Sodium): 138 HCO3 (Bicarb): 32 Bicarbonate Concentrate Lot No.: [id number] Acid Concentrate Lot No.: [id number] Chlorine Testing - Before each treatment and every 4 hours: Time On: 1130 Time Off: 1430 Treatment Goal: 1L Weight Height: 162.6 cm (5' 4") (10/26/24 1438) Weight: 51 kg (112 lb 7 oz) (10/31/24 05) BMI (Calculated): 19.29 (10/31/24 05) 1st check: less than 0.1 ppm at: [...] -- 51 kg (112 lb 7 oz) 10/30/24 2038 (!) 168/96 37.1 C (98.8 F) Temporal [...] Name: Apoorva Gonzalez Patient : 1950 Acct: [id number] Date of Admission: 10/22/2024 Room[facility]Bed: [facility] A Code Status: DNR-CCA Allergies: [...] 10/28/24 0735 -- -- -- -- Clear;Diminished [place];Red Warm;Dry Soft Active -- -- -- -- -- 10/28/24 0906 Alert (0) 4 Regular None (Room air) Clear;Diminished [place];Red Warm;Dry Soft Active Left lower extremity;Right lower extremity -- +1 +1 Patient is agreeable to dialysis, consent verified prior to treatment 10/28/24 1225 Alert (0) 4 Regular None (Room air) Clear;Diminished [place];Red Warm;Dry Soft Active Left lower extremity Non-pitting [...] CALCIUM 8.0 (L) 10/28/2024 0515 PHOS 2.7 10/26/202457 IV Drips and Rate/Dose Continuous Meds[3] Safety - Before each treatment: Dialysis Machine No.: [id number] RO Machine Number: [id number] Dialyzer Lot No.: [id number] Tubing Lot Number: [id number] All Connections Secure: Yes Venous Parameters Set: Yes Arterial Parameters Set: Yes NS Bag: Yes Saline Line Double Clamped: Yes Dialyzer: Nipro Prime Volume (mL): 200 mL RO Machine Number: [id number] RO Machine Log Sheet Completed: Yes Machine Alarm Self Test: Completed, Passed (The machine passed all tests at 0851) (10/28/24 0906) Air Foam Detector: Tested, Proper Function Extracorporeal Circuit Tested for Integrity: Yes Machine Conductivity: 14 Manual Conductivity: 14.2 Manual Ph: 7.4 Bleach Test (Neg): Yes Bath Temperature: 36 C (96.8 F) Conductivity Meter Serial #: [id number] Machine Functioning Alarm Free? Yes Dialysis Bath: K+ (Potassium): 3 Ca+ (Calcium): 2.5 Na+ (Sodium): 138 HCO3 (Bicarb): 32 Bicarbonate Concentrate Lot No.: [id number] Acid Concentrate Lot No.: [id number] Chlorine Testing - Before each treatment and every 4 hours: Time On: 0915 Time Off: 1215 Treatment Goal: 1L Weight Height: 162.6 cm (5' 4") (10/26/24 1438) Weight: 52.3 kg (115 lb 4.8 oz) (10/28/24 0516) BMI (Calculated): 19.78 (10/28/24 0516) 1st check: less than 0.1 ppm at: 0855 2nd check: less than 0.1 ppm at: 1040 3rd check: Not Applicable (if greater than 0.1 ppm, then check every 30 minutes from secondary) Access Flows and Pressures Patient Vitals for the past 8 hrs: Blood Flow Rate (mL/min) Ultrafiltration Rate (ml/hr) Arterial Pressure (mmHg) Venous Pressure (mmHg) TMP DFR Access Visible Intra-Hemodialysis Comments 10/28/2415 200 mL/min 500 ml/hr -30 mmHg 40 [...] F) Temporal 115 22 95 % -- 07/25/25 1818 -- 36.4 C (97.5 F) Temporal [...] Name: Apoorva Gonzalez Patient : 1950 Acct: [id number] Date of Admission: 10/22/2024 Room/Bed: / A Code Status: Full Code Allergies: Allergies[1] [...] 1035. Report Received from Primary RN at 0928. Primary RN (First Initial, Last Name, Title): [...] - Before each treatment: Dialysis Machine No.: [id number] RO Machine Number: [id number] Dialyzer Lot No.: [id number] Tubing Lot Number: [id number] All Connections Secure: Yes Venous Parameters Set: Yes Arterial Parameters Set: Yes NS Bag: Yes Saline Line Double Clamped: Yes Dialyzer: Nipro Prime Volume (mL): 200 mL RO Machine Number: [id number] RO Machine Log Sheet Completed: Yes Machine Alarm Self Test: Completed, Passed (10/26/241034) Air Foam Detector: Tested, Proper Function, pH Reading Extracorporeal Circuit Tested for Integrity: Yes Machine Conductivity: 14 Manual Conductivity: 14 Manual Ph: 7.2 Bleach Test (Neg): Yes Bath Temperature: 36 C (96.8 F) Conductivity Meter Serial #: [id number] Machine Functioning Alarm Free? Yes Dialysis Bath: K+ (Potassium): 3 Ca+ (Calcium): 2.5 Na+ (Sodium): 138 HCO3 (Bicarb): 32 Bicarbonate Concentrate Lot No.: [id number] Acid Concentrate Lot No.: [id number] Chlorine Testing - Before each treatment and every 4 hours: Time On: 1034 Time Off: 1034 Treatment Goal: 1 Weight Height: 162.6 cm (5' 4") (10/23/241033) Weight: 51.3 kg (113 lb 1.5 oz) [...] mmHg 130 mmHg 100 600 Yes LVSD, METAL MINER BLASTING aware of BP 10/26/24 1300 350 mL/min 470 ml/hr -120 mmHg 130 mmHg 100 600 Yes LVSD, METAL MINER BLASTING aware of BP, waiting on reply from [...] C (98.8 F) Oral 100 16 -- 10/25/24 2116 139/95 -- -- 103 -- -- 10/25/242100 [...] Name: Apoorva Gonzalez Patient : 1950 Acct: [id number] Date of Admission: 10/22/2024 Room/Bed: 222-/222- A Code Status: Full Code Allergies: Allergies[1] [...] - Before each treatment: Dialysis Machine No.: [id number] RO Machine Number: [id number] Dialyzer Lot No.: [id number] Tubing Lot Number: [id number] All Connections Secure: Yes Venous Parameters Set: Yes Arterial Parameters Set: Yes NS Bag: Yes Saline Line Double Clamped: Yes Dialyzer: Nipro Prime Volume (mL): 200 mL RO Machine Number: [id number] RO Machine Log Sheet Completed: Yes Machine Alarm Self Test: Completed, Passed (Machine passed all tests at 0916) (10/24/24 0919) Air Foam Detector: Tested, Proper Function Extracorporeal Circuit Tested for Integrity: Yes Machine Conductivity: 14.0 Manual Conductivity: 14.2 Manual Ph: 7.4 Bleach Test (Neg): Yes Bath Temperature: 36 C (96.8 F) Conductivity Meter Serial #: [id number] Machine Functioning Alarm Free? Yes Dialysis Bath: [...] back to the ICU. Patient arrived from [facility] for temporary central line placement. Dr. ruvalcaba in to speak with the patient/family regarding procedure, and consent was obtained. Patient's lab values and allergies were reviewed. Patient was placed supine on exam table, prepped and draped in sterile fashion. Telemetry monitors were placed. IR Procedures: Apoorva is here at [facility] from the ICU for a TLC (Temp [...] ready. Patient transported to ICU by Nursing Undercar Specialist and Kacey MARIE Report called to [place] METAL MINER BLASTING. Wound Care consulted for Pressure Injury Prevention. Pt's Arnol score= 13 on 10/23 Pt's pressure points assessed. Pt turned with max assist of 2 (this RN and Wound GREENKEEPER) for posterior assessment. Pt's Heels, Back, Elbows, Occiput and ears all intact. Unstageable pressure injury noted to sacrum extending to left buttock. Wound GREENKEEPER present at bedside for concurrent skin assessment. For sacrum/left buttock wound assessment and treatment plan, please see Wound/Ostomy GREENKEEPER progress notes. Prevention Measures in place, including: [...] Kirti High RN documented in this encounter [facility] 11-11-2024 Note [facility] 11-11-2024 Hospital course Narrative Hospitalist Discharge Summary Apoorva [place] : 1950 Admit date: 10/22/2024 Discharge date: [...] 7.4* 7.6* 7.3* Recent Labs 11/09/2422511/09/24 0750 11/10/248 11/11/24 0539 [...] Complexity: follow up within 7-14 calendar days (44866) [x] Severe Complexity: follow up within 7 calendar days (61103) Follow up Testing, Pending results or Referrals [...] Gerard Carrillo DO Division of Hospitalist Medicine [facility] 11/11/2024, 3:40 PM [1] Past Medical History: Diagnosis Date Chronic kidney disease (CKD) Hemodialysis patient (CMS/HCC) (HCC) Wednesday, , Wednesday History of blood transfusion 02/27/2022 Hypertension Seizure (HCC) Developed seizure-like activity on 02/24 during hospital admission documented in this encounter [facility] 11-11-2024 History of Present illness Narrative Nephrology [...] lower extremity edema Data: Labs: Recent Labs 11/09/24 0226 11/09/24 0750 11/10/24 0218 11/11/24 0539 WBC 16.0* -- 13.2* 12.6* HGB 6.8* 8.6* 7.0* 7.0* HCT 21.4* 25.9* 21.6* 21.8* MCV 89.2 -- 88.9 91.2 PLT 414 -- 382 480* Recent Labs 11/09/24 0226 11/10/24 0218 11/11/24 0539 NA 134* 134* 138 K [...] HD TTS , Please message me through RUNform with any questions or concerns. Jose G [...] between incision sites w/o interval change. Good final dressing cutter strength and sensation. Rewrapped w/ compression dressing [...] directly with any concerns WDW Dr. Jimenez curriculum consultant for Dr. Rojas Cosigned by Dee Jimenez MD at 11/11/2024 1:23 PM EDT Associated attestation - Dee Jimenez MD - 11/11/2024 1:23 PM EDT I have evaluated the patient and agree with the resident assessment and plan except for additional comments made in this note. Hospitalist Progress Note 11/10/2024 Subjective: Admit Date: 10/22/2024 PCP: Roxie Spain Room#: [id number] A BRIEF HOSPITAL COURSE: 74-year-old female presenting [...] History[1] LABS: CBC: Recent Labs 11/08/24 0326 11/09/246 11/09/24 0750 11/10/24 0218 WBC 13.0* 16.0* -- 13.2* RBC 2.60* 2.40* -- 2.43* HGB 7.5* 6.8* 8.6* 7.0* HCT 23.1* 21.4* 25.9* 21.6* MCV 88.8 89.2 -- 88.9 RDW 17.0* 16.7* -- 16.9* PLT 376 414 -- 382 BMP: Recent Labs 11/08/2432511/09/246 11/10/24 0218 NA 135* [...] Primary Emergency Contact: BonillaDeshawn Mobile Relation: Brother Lode Miner Blasting needed? No Secondary Emergency Contact: Edward Ruggiero Mobile Relation: Significant Other Preferred language: Botswanan Lode Miner Blasting needed? No Gerard Carrillo DO Division of Hospitalist Medicine [facility] [1] Past Medical History: Diagnosis Date Chronic kidney disease (CKD) Hemodialysis patient (CMS/HCC) ([facility]) Wednesday, , Wednesday History of blood transfusion 02/27/2022 Hypertension Seizure ([facility]) Developed seizure-like activity on 02/24 during [...] with ONS and diet once appropriate; noted MD/INSTRUMENT ASSEMBLER had been documenting Severe Malnutrition (until 10/31)) [...] Accumulation: No significant fluid accumulation (per flowsheet) Sap Bw Developer Strength: Not Performed Nutrition Assessment: Pt with previously noted PMH including ESRD on HD, Seizures, HTN, HLD, recent admission to OSH for sudden cardiac arrest 2/2 right thigh/hip abscess s/p I&D 08/16 presented initially to [facility] from [facility] on 10/22 due to AMS; in ED pt noted to be febrile 101.3 at SNF, tachycardic, tachypneic and with elevated WBC, received IV fluid bolus, antibiotics, admitted [facility] for further work up; Critical care consulted the following day as pt remained febrile, tachycardic and tachypneic, WBC count also continuing to increase with worsening anemia; pt has had multiple admissions 08/14 to 08/24 at [facility] for cardiac arrest, 08/26 to 09/06 at for sepsis believed to be due to an infected right thigh wound and hematoma; [facility] from 09/13-10/12 w/ COVID-19 due to covid-19, electrolyte derangements, Enterobacter cloacae, Klebsiella pneumonia, Klebsiella oxytocin and VR Enterococcus which were treated for complete course, also, had C. difficile colitis which was treated, had tunneled HD catheter placed on discharge on 10/12; at [facility] PT/OT/LP, ID, Nephrology, and Wound Care consulted; pt was transferred out of ICU services to medical services on 10/24, noted to be receiving Meropenem and Vancomycin IV (stopped, transitioned to oral abx) for infected pressure ulcer on left buttocks; at [facility] Palliative Care was following, speaking with pt's brother, code status changed to DNR-CCA; pt noted to need fistula placement for HD, has temp HD cath in place, transferred to [facility] 10/31 for new fistula placement; here Vascular [...] ROSEY compression and elevating extremity, considering DDAVP. MANAGER INTERNSHIP following (signed off previously, diet progressed to [...] bed scale) % Weight Change (Calculated): -1.2 [place] Body Weight (lbs) (Calculated): 120 lbs [place] Body Weight (Kg) (Calculated): 55 kg % [place] Body Weight (Calculated): 97.7 % BMI (kg/m2) [...] Alexus Denney RD Contact: Secure chat or *[phone] [facility] - Infectious Diseases Attending Progress Note [...] GLUCOSE 67 (L) 11/10/2024217 CALCIUM 7.6 (L) 11/10/2024 021 PROT 5.6 (L) 10/24/2024 0649 BILITOT 0.5 [...] 11/01/2024316 MONOPCT 8.1 11/10/2024217 MONOPCT 2 (L) 11/01/20247 BASOPCT 1.0 11/10/2024217 BASOPCT 1 11/01/2024316 NEUTROABS [...] lower extremity edema Data: Labs: Recent Labs 11/08/2432511/09/2422511/09/24 0750 11/10/24 0218 WBC 13.0* 16.0* -- [...] any questions or concerns Karis Stone APRN INSTRUMENT ASSEMBLER A-G GREENKEEPER [facility] [phone] Pt seen and examined independently by me. I reviewed with Karis Stone APRN-TAMIR the saavedra portions of the medical history and the findings on physical examination. I discussed the patient s saavedra portions of the diagnosis and concur with the treatment plan as documented in her note. Please message me through RUNform with any questions or concerns. Sean Castaneda [...] between incision sites w/o interval change. Good final dressing cutter strength and sensation. Rewrapped w/ compression dressing [...] edge, no obvious additional active bleed. Equal final dressing cutter strength, 2+ palpable radial pulses and sensation [...] lower extremity edema Data: Labs: Recent Labs 11/07/2410711/08/2432511/09/246 11/09/24 0750 WBC 14.1* 13.0* 16.0* -- HGB 7.6* 7.5* 6.8* 8.6* HCT 23.6* 23.1* 21.4* 25.9* MCV 88.7 88.8 89.2 -- PLT 377 376 414 -- Recent Labs 11/07/2410711/08/24 0326 11/09/24 0226 NA 139 135* 134* [...] any questions or concerns Karis Stone APRN INSTRUMENT ASSEMBLER A-G GREENKEEPER [facility] [phone] Pt seen and examined independently by me. I reviewed with Karis Stone APRN-TAMIR the saavdera portions of the medical history and the findings on physical examination. I discussed the patient s saavedra portions of the diagnosis and concur with the treatment plan as documented in her note. Please message me through RUNform with any questions or concerns. Sean Castaneda MD Hospitalist Progress Note 11/09/2024 Subjective: Admit Date: 10/22/2024 PCP: Roxie Spain Room#: [id number]/[id number] A BRIEF HOSPITAL COURSE: 74-year-old female presenting [...] History: Medical History[1] LABS: CBC: Recent Labs 11/07/24 0108 11/08/24 0326 11/09/24 0226 11/09/24 0750 WBC 14.1* 13.0* 16.0* -- RBC 2.66* 2.60* 2.40* -- HGB 7.6* 7.5* 6.8* 8.6* HCT 23.6* 23.1* 21.4* 25.9* MCV 88.7 88.8 89.2 -- RDW 17.5* 17.0* 16.7* -- PLT 377 376 414 -- BMP: Recent Labs 11/07/24 0108 11/08/24 0326 11/09/24 [...] Emergency Contact Information Primary Emergency Contact: Deshawn Crysatl Mobile Relation: Brother Lode Miner Blasting needed? No Secondary Emergency Contact: Edward Ruggiero Mobile Relation: Significant Other Preferred language: B[place]an Lode Miner Blasting needed? No Gerard Carrillo DO Division of Hospitalist Medicine Acute care [facility] [1] Past Medical History: [...] History: Medical History[1] LABS: CBC: Recent Labs 11/06/246 11/07/24 0108 11/08/24 0326 WBC 15.6* 14.1* 13.0* RBC 3.23* 2.66* 2.60* HGB 9.3* 7.6* 7.5* HCT 27.6* 23.6* 23.1* MCV 85.4 88.7 88.8 RDW 17.4* 17.5* 17.0* PLT 388 377 376 BMP: Recent Labs 11/06/24 0216 11/07/24 0108 11/08/24 0326 NA 138 139 135* [...] Emergency Contact: Deshawn Crystal Mobile Relation: Brother Lode Miner Blasting needed? No Secondary Emergency Contact: BahmanEdward Mobile Relation: Significant Other Preferred language: [place] Lode Miner Blasting needed? No Gerard Carrillo DO Division of Hospitalist Medicine [facility] [1] Past Medical History: Diagnosis Date Chronic kidney disease (CKD) Hemodialysis patient (CMS/HCC) ([facility]) Wednesday, , Wednesday History of blood transfusion 02/27/2022 Hypertension Seizure ([facility]) Developed seizure-like activity on 02/24 during [...] 88.8 PLT 388 377 376 Recent Labs 11/06/24 0216 11/07/24 0108 11/08/24 0326 NA 138 139 135* [...] any questions or concerns Karis Stone APRN INSTRUMENT ASSEMBLER A-G GREENKEEPER [facility] [phone] Pt seen and examined independently by me. I reviewed with Karis Stone APRN-TAMIR the saavedra portions of the medical history and the findings on physical examination. I discussed the patient s saavedra portions of the diagnosis and concur with the treatment plan as documented in her note. Please message me through RUNform with any questions or concerns. Sean Castaneda MD [facility] - Infectious Diseases Attending Progress Note Subjective: ID following- last seen at [facility] on 11/02- transferred to [facility] for Vascualr evaluation of suspected infected LUE [...] Date/Time NA 139 11/07/2024 0108 K 4.8 11/07/2024107 CL 105 11/07/2024 010 CO2 23 11/07/2024107 BUN 37 (H) 11/07/2024107 CREATININE 4.35 (H) 11/07/2024107 GLUCOSE 82 11/07/2024107 CALCIUM 7.2 (L) 11/07/2024 010 PROT 5.6 (L) 10/24/2024 0649 BILITOT 0.5 [...] 0317 MONOPCT 6.8 11/07/2024107 MONOPCT 2 (L) 11/01/2024 0317 BASOPCT 1.0 11/07/2024107 BASOPCT 1 11/01/2024316 NEUTROABS [...] any questions or concerns Karis Stone APRN INSTRUMENT ASSEMBLER A-G GREENKEEPER [facility] [phone] Pt seen and examined independently by me. I reviewed with Karis Stone APRN-TAMIR the saavedra portions of the medical history and the findings on physical examination. I discussed the patient s saavedra portions of the diagnosis and concur with the treatment plan as documented in her note. Please message me through RUNform with any questions or concerns. Sean Castaneda [...] Admit Date: 10/22/2024 PCP: Roxie Spain Room#: [id number]/[id number] A BRIEF HOSPITAL COURSE: 74-year-old female presenting [...] Emergency Contact: Deshawn Crystal Mobile Relation: Brother Lode Miner Blasting needed? No Secondary Emergency Contact: BahmanEdward Mobile Relation: Significant Other Preferred language: [place]an Lode Miner Blasting needed? No Gerard Carrillo DO Division of Hospitalist Medicine [facility] [1] Past Medical History: Diagnosis Date Chronic kidney disease (CKD) Hemodialysis patient (CMS/HCC) ([facility]) Wednesday, , Wednesday History of blood transfusion 02/27/2022 Hypertension Seizure ([facility]) Developed seizure-like activity on 02/24 during [...] ONS and liberalized diet; noted MD or INSTRUMENT ASSEMBLER had been documenting Severe Malnutrition since 10/23) [...] ? beyond her baseline at least to congregation, clavicle however could not quantify today) Fluid Accumulation: Mild (+2 LLE, nonpitting generalized/RLE edema) Sap Bw Developer Strength: Not Performed Nutrition Assessment: Pt with previously noted PMH including ESRD on HD, Seizures, HTN, HLD, recent admission to OSH for sudden cardiac arrest 2/2 right thigh/hip abscess s/p I&D 08/16 presented initially to [facility] from [facility] on 10/22 due to AMS; in ED pt noted to be febrile 101.3 at [facility], tachycardic, tachypneic and with elevated WBC, received IV fluid bolus, antibiotics, admitted [facility] for further work up; Critical care consulted the following day as pt remained febrile, tachycardic and tachypneic, WBC count also continuing to increase with worsening anemia; pt has had multiple admissions 5/12 to 08/24 at [facility] for cardiac arrest, 08/26 to 09/06 at for sepsis believed to be due to an infected right thigh wound and hematoma; [facility] from 09/13-10/12 w/ COVID-19 due to covid-19, electrolyte derangements, Enterobacter cloacae, Klebsiella pneumonia, Klebsiella oxytocin and VR Enterococcus which were treated for complete course, also, had C. difficile colitis which was treated, had tunneled HD catheter placed on discharge on 10/12; at [facility] PT/OT/LP, ID, Nephrology, and Wound Care consulted; pt was transferred out of ICU services to medical services on 10/24, noted to be receiving Meropenem and Vancomycin IV (stopped, transitioned to oral abx) for infected pressure ulcer on left buttocks; at [facility] Palliative Care was following, speaking with pt's brother, code status changed to DNR-CCA; pt noted to need fistula placement for HD, has temp HD cath in place, transferred to [facility] 10/31 for new fistula placement; here Vascular was consulted for same, recommended OR for assessment of AV fistula clot/infection 11/02; s/p further blood transfusion 11/02, 11/05 (hemoglobin today 9.3 mg/dL), 11/04-11/05 pt was having bleeding from AV fistula requiring transfusions, yesterday pt underwent exploration of LUE with evacuation of hematoma; last HD 11/04. MANAGER INTERNSHIP following (signed off last week), diet progressed [...] house tray for lunch however breakfast was north korean toast and coffee, dinner is not [...] bed scale) % Weight Change (Calculated): -1.2 [place] Body Weight (lbs) (Calculated): 120 lbs [place] Body Weight (Kg) (Calculated): 55 kg % [place] Body Weight (Calculated): 97.7 % BMI (kg/m2) [...] Weight Discharge Planning: Too soon to determine Alexsu Denney RD Contact: Secure chat or *[phone] Images from the original note were not included. PHYSICAL THERAPY [facility] Treatment Note Name/MRN: Apoorva Gonzalez ([id number]) Date of : 1950 Age: 74 y.o. Room/Bed: [facility]/W637 A Discharge Recommendation: [facility] Equipment Needed: No Assessment Pt motivated [...] or concerns Karis Stone APRN, CNP A-G GREENKEEPER [facility] [phone] Pt seen and examined independently by me. I reviewed with MAYANK Mensah the saavedra portions of the medical history and the findings on physical examination. I discussed the patient s saavedra portions of the diagnosis and concur with the treatment plan as documented in her note. Please message me through RUNform with any questions or concerns. Sean Castaneda [...] Admit Date: 10/22/2024 PCP: Roxie Spain Room#: W4-602/W1-598 A Interval History: No acute events overnight. [...] with fever and tachycardia and lethargy to [facility] on 10/22/24. HC POA is partner = Edward and brother Deshawn Recently admitted from 09/13 to 10/12 at [facility] for new onset atrial fibrillation complicated by [...] recent infected hematoma which was I&D at [facility] and treated with antibiotics from 08/14-08/24 in which she went under cardiac arrest which was thought to be due to the right thigh and anterior hip abscess - which was drained and she left with wound vac. Returned on 08/26 for expanding hematoma to the right thigh requiring 2 units of pRBC, and transferred to [facility] for IR emobolization of thigh hematoma, but a decision was made not to perform any intervention and she was discharged to SNF on 09/06. 10/22-10/31 [facility] ICU. Patient did not require vasopressors. October 28 transferred to [facility]. October 31 decided to transfer patient to [facility] for vascular assessment of fistula to see [...] arrest August 2024 at [facility] Contact Information Primary Emergency Contact: Deshawn Crystal Mobile Relation: Brother Lode Miner Blasting needed? No Secondary Emergency Contact: Edward Ruggiero Mobile Relation: Significant Other Preferred language: [place]an Lode Miner Blasting needed? No Candy Denis DO Division of Hospitalist Medicine [facility] [1] Past Medical History: Diagnosis [...] (: 1950) underwent a surgical procedure at [facility] for evacuation of a left upper [...] Javier Somers III, MD, Given at 11/04/24 08 heparin injection 1,200-2,000 Units, 1,200-2,000 Units, IntraCATHeter, [...] infusion, 250 mL/hr, IntraVENous, PRN, [place], BRAYDEN sodium chloride 0.9 % infusion, 250 [...] Somers III, MD, 10 mL at 10/27/24 2031 sulfamethoxazole-trimethoprim (Bactrim DS) 800-160 MG per tablet [...] with large clot evacuated (see above), previous [place] removed 11/04/2024. Plan to monitor will need [...] Admit Date: 10/22/2024 PCP: Roxie Spain Room#: W6-577/W6-468 A Interval History: WATERMELON INSPECTOR PER CYNTHIA LOMBARDI'S NOTE "large amount of [...] with fever and tachycardia and lethargy to [facility] on 10/22/24. HC POA is partner = Edward and brother Deshawn Recently admitted from 09/13 to 10/12 at [facility] for new onset atrial fibrillation complicated by [...] recent infected hematoma which was I&D at [facility] and treated with antibiotics from 08/14-08/24 in which she went under cardiac arrest which was thought to be due to the right thigh and anterior hip abscess - which was drained and she left with wound vac. Returned on 08/26 for expanding hematoma to the right thigh requiring 2 units of pRBC, and transferred to [facility] for IR emobolization of thigh hematoma, but a decision was made not to perform any intervention and she was discharged to SNF on 09/06. 10/22-10/31 [facility] ICU. Patient did not require vasopressors. October 28 transferred to [facility]. October 31 decided to transfer patient to [facility] for vascular assessment of fistula to see [...] arrest August 2024 at [facility] Contact Information Primary Emergency Contact: Deshawn Crystal Mobile Relation: Brother Lode Miner Blasting needed? No Secondary Emergency Contact: RuggieroEdward Mobile Relation: Significant Other Preferred language: [place]an Lode Miner Blasting needed? No Candy Denis DO Division of Hospitalist Medicine Acute care [facility] [1] Past Medical History: [...] Javier Somers III, MD, 5,000 Units at 11/04/24820 hydrALAZINE (Apresoline) injection 10 mg, 10 mg, [...] resident s note unless otherwise noted below. [place] drain removed from the incision and remained of incision closed with 2 corie. Thin dark fluid evacuated (thin serousanguinous but appears as old blood). The patient tolerated this well. Radial pulse remains palpable. Arm dressed. Will reassess tomorrow. Cultures from surgery remain negative to date. Hospitalist Progress Note 11/04/2024 Subjective: Admit Date: 10/22/2024 PCP: Roxie Spain Room#: W6-751/W6-606 A Interval History: On room air. Hypertensive. No fever. Finishing up dialysis appliance service technician at bedside In her bed currently D/w with rn eddi Eating well Adult diet Regular 24HR INTAKE/OUTPUT: [...] with fever and tachycardia and lethargy to [facility] on 10/22/24. HC POA is partner = Edward and brother Deshawn Recently admitted from 09/13 to 10/12 at [facility] for new onset atrial fibrillation complicated by [...] recent infected hematoma which was I&D at [facility] and treated with antibiotics from 08/14-08/24 in which she went under cardiac arrest which was thought to be due to the right thigh and anterior hip abscess - which was drained and she left with wound vac. Returned on 08/26 for expanding hematoma to the right thigh requiring 2 units of pRBC, and transferred to [facility] for IR emobolization of thigh hematoma, but a decision was made not to perform any intervention and she was discharged to SNF on 09/06. 10/22-10/31 [facility] ICU. Patient did not require vasopressors. October 28 [facility] to [facility]. October 31 decided to transfer patient to [facility] for vascular assessment of fistula to see [...] Primary Emergency Contact: BonillaGeraDeshawn Mobile Relation: Brother Lode Miner Blasting needed? No Secondary Emergency Contact: Zamzam Ruggieroic Mobile Relation: Significant Other Preferred language: [place]an Lode Miner Blasting needed? No Candy Denis DO Division of Hospitalist Medicine [facility] [1] Past Medical History: Diagnosis [...] Javier Somers III, MD, 2,100 Units at 11/02/241834 heparin injection 5,000 Units, 5,000 Units, SubCUTAneous, [...] Note 11/03/2024 Subjective: Admit Date: 10/22/2024 PCP: Roixe Spain Room#: [id number]/W8-012 A Interval History: On room air. Hypertensive. [...] with fever and tachycardia and lethargy to [facility] on 10/22/24. HC POA is partner = Edward and brother Deshawn Recently admitted from 09/13 to 10/12 at [facility] for new onset atrial fibrillation complicated by [...] recent infected hematoma which was I&D at [facility] and treated with antibiotics from 08/14-08/24 in which she went under cardiac arrest which was thought to be due to the right thigh and anterior hip abscess - which was drained and she left with wound vac. Returned on 08/26 for expanding hematoma to the right thigh requiring 2 units of pRBC, and transferred to [facility] for IR emobolization of thigh hematoma, but a decision was made not to perform any intervention and she was discharged to SNF on 09/06. 10/22-10/31 [facility] ICU. Patient did not require vasopressors. October 28 transferred to [facility]. October 31 decided to transfer patient to [facility] for vascular assessment of fistula to see [...] August 2024 at H Continue [facility] Contact Information Primary Emergency Contact: Deshawn Crystal Mobile Relation: Brother Lode Miner Blasting needed? No Secondary Emergency Contact: Edward Ruggiero Mobile Relation: Significant Other Preferred language: [place] Lode Miner Blasting needed? No Candy Denis DO Division of Hospitalist Medicine [facility] [1] Past Medical History: Diagnosis [...] removal Plan HD today, and then on Saturday Acute anemia, transfusion per primary team Pipe [...] 0.9 % infusion, 125 mL/hr, IntraVENous, PRN, uLther Robin MD sodium chloride 0.9% (NS) flush [...] Javier Somers III, MD, 1 tablet at 11/02/241458 Vascular Surgery Progress Note SUBJECTIVE: The patient [...] (CKD) Hemodialysis patient (CMS/HCC) ([facility]) Wednesday, , Wednesday History of blood transfusion 02/27/2022 Hypertension Seizure ([facility]) Developed seizure-like activity on 02/24 during hospital admission [2] Past Surgical History: Procedure Laterality Date AV FISTULA PLACEMENT Left 08/07/2022 COLONOSCOPY N/A 01/25/2024 Performed by Chrissy Gilman MD at [facility] ENDOSCOPY IR CVC TUNNELED DIALYSIS CATHETER PLACEMENT 02/27/2022 IR CVC TUNNELED CATHETER PLACEMENT 02/27/[address] [facility] SPECIAL PROCEDURES IR EMBOLIZATION 01/24/2024 IR EMBOLIZATION 01/24/[address] [facility] SPECIAL PROCEDURES [3] lactated Ringer's, 125 mL/hr [...] 531* 557* 530* BMP: Recent Labs 10/31/2452511/01/2431611/02/24 024 NA 143 139 138 K 4.4 4.6 [...] with fever and tachycardia and lethargy to [facility] on 10/22/24. HC POA is partner = Edward and brother Deshawn Recently admitted from 09/13 to 10/12 at [facility] for new onset atrial fibrillation complicated by [...] recent infected hematoma which was I&D at [facility] and treated with antibiotics from 08/14-08/24 in which she went under cardiac arrest which was thought to be due to the right thigh and anterior hip abscess - which was drained and she left with wound vac. Returned on 08/26 for expanding hematoma to the right thigh requiring 2 units of pRBC, and transferred to [facility] for IR emobolization of thigh hematoma, but a decision was made not to perform any intervention and she was discharged to SNF on 09/06. [facility] [facility] ICU. Patient did not require vasopressors. October 28 transferred to [facility]. October 31 decided to transfer patient to [facility] for vascular assessment of fistula to see [...] cardiopulmonary arrest August 2024 at [facility] Extended Emergency Contact Information Primary Emergency Contact: Deshawn Crystal Mobile Relation: Brother Lode Miner Blasting needed? No Secondary Emergency Contact: Edward Ruggiero Mobile Relation: Significant Other Preferred language: Botswanan Lode Miner Blasting needed? No Candy Denis DO Division of Hospitalist Medicine [facility] [1] Past Medical History: Diagnosis [...] Results from last 7 days Lab Units 11/01/247 WBC AUTO 10*3/uL 20.4* RBC AUTO 10*6/uL [...] tablet 5 mg, 5 mg, Oral, Daily, PARK Erickson CNP, 5 mg at 11/01/24 0810 chlorhexidine (Hibiclens) [...] PRN, PARK Erickson CNP, 10 mg at 10/31/242044 labetalol (Normodyne,Trandate) [...] Oral, q8h PRN, Ana Boyce APRN - TAMIR, 5 mg at 11/01/24 1705 polyethylene glycol [...] IntraVENous, PRN, Kaylin Thomas, DO sodium chloride 0.9 % infusion, 250 mL/hr, IntraVENous, PRN, Ana Boyce APRN - INSTRUMENT ASSEMBLER sodium chloride 0.9% (NS) flush 5-40 mL, 5-40 mL, IntraVENous, 2 times per day, Kaylin Thomas DO, 10 mL at 11/01/24 0810 sodium chloride 0.9% (NS) flush 5-40 mL, 5-40 mL, IntraVENous, PRN, Kaylin Thomas DO sodium chloride 0.9% (NS) flush 5-40 mL, 5-40 mL, IntraCATHeter, q8h, Kaylin Thomas DO, 10 mL at 11/01/24 1351 sodium chloride 0.9% (NS) flush 5-40 mL, 5-40 mL, IntraVENous, PRN, Kaylin Thomas DO, 10 mL at 10/27/24 2032 sulfamethoxazole-trimethoprim (Bactrim [...] transferred here last night after being at [facility] for 9 days). Please continue to record % consumed of meals in I/O Flowsheet. RD to monitor weight (confirm/monitor for Nephrology comment on pt's current EDW), labs, fluid, overall nutritional status & follow up weekly. Malnutrition Assessment: Malnutrition Status: At risk for malnutrition (Comment) (continue with ONS and liberalized diet; noted MD or INSTRUMENT ASSEMBLER have been documenting Severe Malnutrition since 10/23) [...] Accumulation: No significant fluid accumulation (per chart) Sap Bw Developer Strength: Not Performed Nutrition Assessment: Pt with PMH including ESRD on HD, Seizures, HTN, HLD, recent admission to OSH for sudden cardiac arrest 2/ right thigh/hip abscess s/p I&D 08/16 presented initially to [facility] from [facility] on 10/22 due to AMS; in ED pt noted to be febrile 101.3 at [facility], tachycardic, tachypneic and with elevated WBC, received IV fluid bolus, antibiotics, admitted to [facility] for further work up; Critical care consulted the following day as pt remained febrile, tachycardic and tachypneic, WBC count also continuing to increase with worsening anemia; pt has had multiple admissions 08/14 to 08/24 at [facility] for cardiac arrest, 08/26 to [...] catheter placed on discharge on 10/12; at [facility] PT/OT/LP, ID, Nephrology, and Wound Care consulted; pt was transferred out of ICU services to medical services on 10/24, noted to be receiving Meropenem and Vancomycin IV (stopped, transitioned to oral abx) for infected pressure ulcer on left buttocks, last HD 10/31; on 10/27 pt received 1 unit of blood (3rd unit pt had received there); at [facility] Palliative Care was following, speaking with pt's brother, code status changed to DNR-CCA; pt noted to need fistula placement for HD, has temp HD cath in place, transferred here yesterday for new fistula placement; here Vascular was consulted for same, recommended OR for assessment of AV fistula clot/infection 11/02. MANAGER INTERNSHIP following (signed off today), diet progressed to [...] she would have last received while at [facility]. Nutrition Related Findings: pos I/O (4.3L); +BS, last BM 10/30; No edema indicated; medications include renvela; labs: SCr (2.98), BG (67) Wound Type: Pressure Injury, Unstageable (sacrum extending to L buttock) Current Nutrition Therapies: Adult diet Regular Current Oral Intake Average Meal Intake: 0%, 1-25%, 26-50%, 51-75%, 76-100% (per flowsheet) Average Supplements Intake: Unable to assess (pt just transferred to [facility] from [facility] last night) Anthropometric Measures: Height: [...] bed scale) % Weight Change (Calculated): -1.2 [place] Body Weight (lbs) (Calculated): 120 lbs [place] Body Weight (Kg) (Calculated): 55 kg % [place] Body Weight (Calculated): 97.7 % BMI (kg/m2) [...] Alexus Denney RD Contact: Secure chat or *[phone] Images from the original note were not included. PHYSICAL THERAPY [facility] Re-Evaluation Name/MRN: Apoorva Gonzalez ([id number]) Evaluation Date: 11/01/2024 Date of : 1950 Admission Date: 10/22/2024 12:48 PM Age: 74 y.o. Room/Bed: [facility] A Discharge Recommendation: Correction Facility Equipment Needed: No Assessment IMPRESSION: PT re-evaluation completed d/t pt transfer [facility]. She is here for sepsis, fever, lethargy. Max A for mobility, CARBURETOR REBUILDER required assist for all from SNF. Will [...] Raw Score (No Stairs) : 7 [facility] Score: Sat at edge of bed Plan [...] of Care supervision is transferred to a [facility] Therapy Services Physical Therapist. Goals and/or treatment plan was established in collaboration with patient/family/other representatives. [1] Past Medical History: Diagnosis Date Chronic kidney disease (CKD) Hemodialysis patient (CMS/HCC) (HCC) Wednesday, , Wednesday History of blood transfusion 02/27/2022 Hypertension Seizure ([facility]) Developed seizure-like activity on 02/24 during hospital admission [2] Past Surgical History: Procedure Laterality Date AV FISTULA PLACEMENT Left 08/07/2022 COLONOSCOPY N/A 01/25/2024 Performed by Chrissy Gilman MD at [facility] ENDOSCOPY IR CVC TUNNELED DIALYSIS CATHETER PLACEMENT 02/27/2022 IR CVC TUNNELED CATHETER PLACEMENT 02/27/[address] [facility] SPECIAL PROCEDURES IR EMBOLIZATION 01/24/2024 IR EMBOLIZATION 01/24/[address] [facility] SPECIAL PROCEDURES Images from the original note were not included. Speech-Language Pathology SPEECH LANGUAGE PATHOLOGY [facility] Dysphagia Treatment Note Patient Name: Apoorva Gonzalez [...] bites/sips Patient has achieved all acute care MANAGER INTERNSHIP goals. Speech therapy to sign off at [...] Expected End: 11/07/24 Resolved: 11/01/24 Therapy Time MANAGER INTERNSHIP Individual Minutes Time In: 1034 Time Out: 1044 Minutes: 10 NIRU [place] Brander Cosigned by EDGAR Paniagua at 11/01/2024 11:04 [...] 502* 531* 557* BMP: Recent Labs 10/30/24 04510/31/2452511/01/24316 NA 143 143 139 K 4.2 4.4 [...] with fever and tachycardia and lethargy to [facility] on 10/22/24. HC POA is partner = Edward and brother Deshawn Recently admitted from 09/13 to 10/12 at [facility] for new onset atrial fibrillation complicated by [...] recent infected hematoma which was I&D at [facility] and treated with antibiotics from 08/14-08/24 in which she went under cardiac arrest which was thought to be due to the right thigh and anterior hip abscess - which was drained and she left with wound vac. Returned on 08/26 for expanding hematoma to the right thigh requiring 2 units of pRBC, and transferred to [facility] for IR emobolization of thigh hematoma, but a decision was made not to perform any intervention and she was discharged to SNF on 09/06. 10/22-10/31 [facility] ICU. Patient did not require vasopressors. October 28 transferred to [facility]. October 31 decided to transfer patient to [facility] for vascular assessment of fistula to see [...] August 2024 at H Continue [facility] Extended Emergency Contact Information Primary Emergency Contact: Deshawn Crystal Mobile Relation: Brother Lode Miner Blasting needed? No Secondary Emergency Contact: Edward Ruggiero Mobile Relation: Significant Other Preferred language: Bots[place]an Lode Miner Blasting needed? No Candy Denis DO Division of Hospitalist Medicine Acute care [facility] [1] Past Medical History: Diagnosis Date Chronic kidney disease (CKD) Hemodialysis patient ([facility]/HCC) (HCC) Wednesday, , Wednesday History of blood [...] included. PHYSICAL THERAPY [facility] Name/MRN: Aoporva Gonzalez ([id number]) Date: 10/31/2024 Chart review completed. Unable to see pt currently secondary to receiving dialysis. Noted plan to transfer pt to [facility] for vascular consult. Will follow while here for continued therapy if medically stable. Mayuri Parkinson PTA Cosigned by Julian Lerner PT at 10/31/2024 3:33 PM EDT [facility] PROGRESS NOTE Subjective Interval [...] mg, Oral, Daily, Ana Boyce APRN - INSTRUMENT ASSEMBLER, 5 mg at 10/31/24 0820 chlorhexidine (Hibiclens) [...] PRN, Kaylin Thomas DO, 2,000 Units at 10/26/24 1341 heparin injection 1,200-2,000 Units, 1,200-2,000 Units, IntraCATHeter, PRN, Kaylin Thomas DO, 2,100 Units at 10/28/24 1221 heparin injection 1,200-2,000 Units, 1,200-2,000 Units, IntraCATHeter, PRN, Kaylin Thomas DO, 2,000 Units at 10/28/24 1221 heparin injection 5,000 Units, 5,000 Units, SubCUTAneous, 2 times per day, Kaylin Thomas DO, 5,000 Units at 10/31/24 0820 hydrALAZINE (Apresoline) injection 10 mg, 10 mg, IntraVENous, q4h PRN, Ana Boyce, DISTRICT COMMERCIAL SUPERINTENDENT - INSTRUMENT ASSEMBLER, 10 mg at 10/30/24 0451 labetalol (Normodyne,Trandate) injection 10 mg, 10 mg, IntraVENous, q4h PRN, Kaylin Thomas DO, 10 mg at 10/30/24 2054 levETIRAcetam in sodium chloride (Keppra) IVPB 500 [...] infusion, 250 mL/hr, IntraVENous, PRN, Ana Boyce, DISTRICT COMMERCIAL SUPERINTENDENT - INSTRUMENT ASSEMBLER sodium chloride 0.9% (NS) flush 5-40 mL, [...] Oral, q8h PRN, Ana Boyce APRN - INSTRUMENT ASSEMBLER Hospitalist Progress Note 10/31/2024 Subjective: Admit Date: 10/22/2024 PCP: Roxie Spain Room#: B2-258/B2-258 A BRIEF HOSPITAL COURSE: Apoorva Gonzalez is a 74 year old female who presented 10/22 from [facility] due to altered mental status. In the ED was noted to be febrile 101.3 at SNF, tachycardic, tachypneic and with elevated WBC. Received IV fluid bolus, antibiotics. Admitted to [facility] for further work up. Critical care consulted the following day as patient remained febrile, tachycardic and tachypneic. WBC count also continuing to increase with worsening anemia. Patient has had multiple admissions 08/14 to 08/24 at [facility] for cardiac arrest, 08/26 to 09/06 at for sepsis believed to be due to an infected right thigh wound and hematoma; [facility] from 09/13 - 10/12/24 due to covid-19, [...] of blood, Dr Boyd spoke with ROCKY Hess, made patient DNR CCA, considering hospice, Vancomycin stopped 10/28/24 Patient moved out of ICU to [facility] PCU, dialysis being set up this morning, hemoglobin remains stable overnight at 9.3 10/30/24 IV Zosyn stopped, oral ATB started in the afternoon by ID, reached out to vascular they do not come to [place] willing to see patient at [facility] Interval History: 10/31/24 Discussed plan with patient's POA/brother Deshawn- instead of getting authorization for [facility] approval, going to SNF then turning around to return to outpatient vascular appointment to evaluate fistula for potential source of infection, he is agreeable to transfer to [facility] for vascular assessment and/or removal of current [...] with Dr Rojas and admitting team at [facility], accepted transfer and will assess AV fistula [...] Keppra HTN HLD Debility Recent CDIFF-treated at [facility] Plan As a result of the above [...] to update we will proceed transfer to [facility] for vascular surgery to evaluate, brother agrees [...] - TBD - Location - transfer to [facility] then pursue SNF for rehab - Pending the following - pending acceptance Toxic drug monitoring/narrow therapeutic index drug monitoring : # Drug name : # Route administered : # Method of monitoring : Extended Emergency Contact Information Primary Emergency Contact: Deshawn Crystal Mobile Relation: Brother Lode Miner Blasting needed? No Secondary Emergency Contact: Edward Ruggiero Mobile Relation: Significant Other Preferred language: B[place]an Lode Miner Blasting needed? No PARK Ureña CNP Division of Hospitalist Medicine [facility] [1] Past Medical History: Diagnosis [...] not included. Speech-Language Pathology SPEECH LANGUAGE PATHOLOGY [facility] Dysphagia Treatment Note Patient Name: Apoorva Gonzalez Evaluation Date: 10/31/2024 Date of : 1950 Admission Date: 10/22/2024 12:48 PM Age: 74 y.o. Room/Bed: B2-258/B2-258 A Subjective Patient alert and cooperative. Seen [...] Plan: Continue dysphagia POC. Possible transfer to [facility] if need surgery for infected Fistula. Recommend [...] Start: 10/24/24 Expected End: 11/07/24 Therapy Time MANAGER INTERNSHIP Individual Minutes Time In: 922 Time Out: 938 Minutes: 16 NIRU Quiroz Images from the original note were not included. [facility] Wound Care Progress Note Apoorva Gonzalez AGE: 74 y.o. GENDER: female : 1950 Subjective: HISTORY of PRESENT ILLNESS HPI Apoorva Gonzalez is a 74 y.o. female who presents for a wound care follow up. HPI: Apoorva is a 74 y.o. female who presented to the emergency department on 10/22/24 with chief complaint of AMS. Pt is resident of [place] at [facility]. Report one day of increasing weakness and AMS. She receives dialysis 5x/week Wed-Wednesday. No missed sessions. Temp 101.3F at [facility]. Hospitalized from 08/14 - 08/24 at [facility] for cardiac arrest and sepsis and again from 08/26 to 09/06 at for sepsis believed to be due to an infected right thigh wound and hematoma. Hospitalized again at [facility] from 09/13 - 10/12 due to covid-19 [...] no cyanosis Sacrum extending to left buttock: [id number] cm. Wound bed with a mix of [...] to follow Recommend to follow up at [facility] Outpatient wound care center after hospital discharge. Any questions or concerns please secure chat "[facility] wound/ostomy". Thank you for the [...] 01/25/2024 Performed by Chrissy Gilman MD at [facility] ENDOSCOPY IR CVC TUNNELED DIALYSIS CATHETER PLACEMENT 02/27/2022 IR CVC TUNNELED CATHETER PLACEMENT 02/27/[address] [facility] SPECIAL PROCEDURES IR EMBOLIZATION 01/24/2024 IR EMBOLIZATION 01/24/[address] [facility] SPECIAL PROCEDURES [3] Family History Problem Relation [...] as needed for constipation. Spiritual Care Note [facility] Palliative Care Patient Name:Apoorva Gonzalez Chief Complaint: Chief Complaint Patient presents with Altered Mental Status Pt came from senior care. Squad was called for weakness and altered [...] and when patient is able. Debriefed: with marine gear keeper team. Gretchen Adames 10/30/24 Consult acknowledged. Concern for infected LUE AVG. The patient will need transferred to [facility] for any vascular surgical evaluation/procedure as we have no operative time available to us at [facility]. Ana Boyce, PARK-INSTRUMENT ASSEMBLER contacted. Raffy Rojas MD Vascular Surgery Hospitalist Progress Note 10/30/2024 Subjective: Admit Date: 10/22/2024 PCP: Roxie Spain Room#: B2-258/B2-258 A BRIEF HOSPITAL COURSE: Apoorva Gonzalez is a 74 year old female who presented 10/22 from [facility] due to altered mental status. In the ED was noted to be febrile 101.3 at [facility], tachycardic, tachypneic and with elevated WBC. Received IV fluid bolus, antibiotics. Ad[facility] to [facility] for further work up. Critical care consulted the following day as patient remained febrile, tachycardic and tachypneic. WBC count also continuing to increase with worsening anemia. Patient has had multiple admissions 08/14 to 08/24 at [facility] for cardiac arrest, 08/26 to 09/06 at for sepsis believed to be due to an infected right thigh wound and hematoma; [facility] from 09/13 - 10/12/24 due to covid-19, [...] unit of blood, Dr Boyd spoke with [facility] brother Deshawn, made patient DNR CCA, considering hospice, Vancomycin stopped 10/28/24 Patient moved out of ICU to [address] [place], [place] [address]U, dialysis being set up this morning, hemoglobin [...] LABS: CBC: Recent Labs 10/28/24 0515 10/29/24 04310/30/24 0455 WBC 26.6* 22.8* 18.2* RBC 3.15* [...] Keppra HTN HLD Debility Recent CDIFF-treated at [facility] Plan As a result of the above [...] following, recommending SNF, will go back to [facility], palliative consult will be placed [...] Emergency Contact: Deshawn Crystal Mobile Relation: Brother Lode Miner Blasting needed? No Secondary Emergency Contact: Edward Ruggiero Mobile Relation: Significant Other Preferred language: Bots[place]an Lode Miner Blasting needed? No Ana Boyce APRN - INSTRUMENT ASSEMBLER Division of Hospitalist Medicine [facility] [1] Past Medical History: [...] sodium chloride 0.9%, sodium chloride 0.9% [4] [facility] - Infectious Diseases Attending Progress [...] Value Date/Time NA 143 10/30/2024454 K 4.2 10/30/2024 0455 CL 110 (H) 10/30/2024 0455 CO2 26 10/30/2024 0455 BUN 21 10/30/2024454 CREATININE 3.52 (H) 10/30/2024454 [...] excised. Encephalopathy- worse today( compared to previous [facility] admission) Leukocytosis. ESRD, on HD. Recent h/o [...] not included. Speech-Language Pathology SPEECH LANGUAGE PATHOLOGY [facility] Dysphagia Treatment Note Patient Name: Apoorva Gonzalez Evaluation Date: 10/30/2024 Date of : 1950 Admission Date: 10/22/2024 12:48 PM Age: 74 y.o. Room/Bed: [facility] A Subjective Patient alert and cooperative. [...] upgrade. Plan & Recommendations Plan: Continue acute MANAGER INTERNSHIP therapy per initial plan of care and [...] Start: 10/24/24 Expected End: 11/07/24 Therapy Time MANAGER INTERNSHIP Individual Minutes Time In: 939 Time Out: 954 Minutes: 15 Christine Barnes CCC-MANAGER INTERNSHIP Images from the original note were not included. Palliative Care Progress Note Chief Complaint: Apoorva Gonzalez is a 74 y.o. female with chief complaint of fever. Palliative Care is signing off, please re-consult if needed. (add SIGNOFFTRANSITION dotphrase below) Assessment/Plan Goals of care Apoorva Gonzalez maintains capacity for medical decision-making -legal surrogate decision maker is SHADY, Brother Deshawn Crystal ( ) Alternate is s/o Edward Ruggiero [phone]) -HCPOA documented to have been filled out at facility recently-->copy was emailed to me today from [facility]. Faxed to medical records to be scanned into chart. -Goals of care include-->1)CONTINUE ATBX 2)RETURN TO FACILITY 3)PALLIATIVE REFERRAL PATIENT NOT [facility] FOR HOSPICE AT THIS TIME. Sepsis -Recent admission at [facility] for sepsis, Cdiff. -Had central line replaced and noted that IV ATBX course will be finished out PO at facility. -Monitor for s/s repeat infection, continued decline, patient is hospice appropriate, however -Monitor. Acute encephalopathy -Improved since last seen. -Monitor. Dysphagia -Patient now cleared for regular diet after being seen by MANAGER INTERNSHIP -Monitor. Debility Wounds -ongoing, 2/2 chronically ill and long hospitalizations recently. -This is her 5th admission over the last year. -Noted WCB at baseline at facility. -PT/OT-->recommending SNF -Planning return to facility at [place] -Monitor. Hx Seizures -Keppra 500 mg IVPB continued. -Monitor. Hx ESRD -Dialysis patient, nephrology managing. -Noted that tunneled like previously inserted last admission ([facility]-->10-13) -Avoid nephrotoxic medications. -Renally dose medications Hx CP arrest --->while at [facility]. Palliative Care Encounter -Code Status: DNR-CCA, [...] Family/Caregiver Advanced Directives: Health Care Power of Ferry Boat Captain, DNR Functional Assessment: PPS 50% mainly sit/lie; can't do any work/extensive disease; considerable assistance; normal or reduced intake; full LOC or confusion Prognosis: depends upon goals of care Spiritual Assessment: No spiritual distress identified Bereavement and Grief: To Be Determined ROS: See palliative care ROS/ESAS below; Detail ROS unable to be obtained due to patient's mental status Republic Symptom Assessment Score Republic Score Pain Score (if non-verbal, add .FLACC [...] Gonzalez has been seen in consultation by [facility] Palliative [facility] during their admission to [facility]. They currently have no uncontrolled symptoms and have established goals of care and we have signed off of their case. The patient has established follow-up with palliative care team and PCP. PARK Prajapati CNP Images from the original note were not included. PHYSICAL THERAPY [facility] Treatment Note Name/MRN: Apoorva Gonzalez ([id number]) Date of : 1950 Age: 74 y.o. Room/Bed: B2-258/B2-258 A Visit #: 2 out of 5 Discharge Recommendation: Correction Facility Equipment Needed: No Assessment Pt continues [...] year old female who presented 10/22 from [facility] due to altered mental status. In the ED was noted to be febrile 101.3 at [facility], tachycardic, tachypneic and with elevated WBC. Received IV fluid bolus, antibiotics. Ad[facility] for further work up. Critical care consulted the following day as patient remained febrile, tachycardic and tachypneic. WBC count also continuing to increase with worsening anemia. Patient has had multiple admissions 08/14 to 08/24 at [facility] for cardiac arrest, 08/26 to 09/06 at [...] of blood, Dr Boyd spoke with ROCKY brother Deshawn, made patient DNR CCA, considering hospice, Vancomycin stopped 10/28/24 Patient moved out of ICU to [address] [place], [place] [address]U, dialysis being set up this morning, hemoglobin [...] Keppra HTN HLD Debility Recent CDIFF-treated at [facility] Plan As a result of the above [...] Emergency Contact: Deshawn Crystal Mobile Relation: Brother Lode Miner Blasting needed? No Secondary Emergency Contact: Edward Ruggiero Mobile Relation: Significant Other Preferred language: B[place]an Lode Miner Blasting needed? No Ana Boyce APRN - INSTRUMENT ASSEMBLER Division of Hospitalist Medicine [facility] [1] Past Medical History: [...] Received IV fluid bolus, antibiotics. Ad[facility] for further work up. Critical care consulted the following day as patient remained febrile, tachycardic and tachypneic. WBC count also continuing to increase with worsening anemia. Patient has had multiple admissions 08/14 to 08/24 at [facility] for cardiac arrest, 08/26 to 09/06 at [...] 10/28/24 Patient moved out of ICU to [address] [place], [place] [address]U, dialysis being set up this morning, hemoglobin [...] Keppra HTN HLD Debility Recent CDIFF-treated at [facility] Plan As a result of the above [...] Emergency Contact: Deshawn Crystal Mobile Relation: Brother Lode Miner Blasting needed? No Secondary Emergency Contact: Edward Ruggiero Mobile Relation: Significant Other Preferred language: Botswanan Lode Miner Blasting needed? No PARK Ureña CNP Division of Hospitalist Medicine Acute care [facility] [1] Past Medical History: [...] from the original note were not included. [facility] - Infectious Diseases [...] fistula Encephalopathy- worse today( compared to previous [facility] admission) Leukocytosis. ESRD, on HD. Recent h/o [...] year old female who presented 10/22 from [facility] due to altered mental status. In the ED was noted to be febrile 101.3 at [facility], tachycardic, tachypneic and with elevated WBC. Received IV fluid bolus, antibiotics. Ad[facility] work up. Critical care consulted the following day as patient remained febrile, tachycardic and tachypneic. WBC count also continuing to increase with worsening anemia. Patient has had multiple admissions 08/14 to 08/24 at [facility] for cardiac arrest, 08/26 to 09/06 at for sepsis believed to be due to an infected right thigh wound and hematoma; [facility] from 09/13 - 10/12/24 due to covid-19, [...] Th, Sat HD. Patient currently resides at [facility] and will return on discharge Interval History: [...] Keppra HTN HLD Debility Recent CDIFF-treated at [facility] Plan As a result of the above [...] Emergency Contact: Deshawn Crystal Mobile Relation: Brother Lode Miner Blasting needed? No Secondary Emergency Contact: Edward Ruggiero Mobile Relation: Significant Other Preferred language: [place]an Lode Miner Blasting needed? No PARK Ureña CNP Division of Hospitalist Medicine [facility] [1] Past Medical History: Diagnosis [...] not included. Speech-Language Pathology SPEECH LANGUAGE PATHOLOGY [facility] Dys[facility]ia Treatment Note Patient Name: Apoorva Gonzalez Evaluation Date: 10/27/2024 Date of : 1950 Admission Date: 10/22/2024 12:48 PM Age: 74 y.o. Room/Bed: / A Subjective Patient alert, confused and agitated. Seen upright in bed. Answers some basic questions with clear vocal quality. Follows some basic commands. Visitors at bedside - GREENKEEPER. Spoke with RNAna, who cleared pt for [...] Diet tolerance & trials Pt agitated with MANAGER INTERNSHIP this am, stating "I don't need you, don't touch my food". Pt was observed to be self-feeding at MANAGER INTERNSHIP's arrival. MANAGER INTERNSHIP provided explanation for purpose of therapy & goals of care - to upgrade pt's diet as appropriate. Pt stating "You can watch me eat but that's it". Pt was observed to tolerated 3 bites of scrambled eggs & ice cream with functional mastication, achieving full bolus clearance & no overt s/s of aspiration/penetration. MANAGER INTERNSHIP offered pt regular PO trials (dipti vasquez) with pt stating Don't touch anything, I don't need this, leave me be". MANAGER INTERNSHIP adhered to pt's wishes at this time to decrease agitation, RN notified. Continue with current diet at this time - allow pt to self-feed if mentation continues to improve. Plan & Recommendations Plan: Continue acute MANAGER INTERNSHIP therapy per initial plan of care and [...] Start: 10/24/24 Expected End: 11/07/24 Therapy Time MANAGER INTERNSHIP Individual Minutes Time In: 904 Time Out: 914 Minutes: 10 Christine Barnes CCC-MANAGER INTERNSHIP Images from the original note were not [...] ( ) Alternate is s/o Edward Ruggiero [phone]) - patient seen this am, she was [...] - discussed with bedside RN, primary team PARK-TAMIR Boyce - will continue to have ongoing goals of care conversations with patient, family Severe sepsis - likely secondary to infected left buttock pressure ulcer due to enterobacter cloacae complex , 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 female admitted to [facility] on 10/22 from facility with [...] Family/Caregiver Advanced Directives: Health Care Power of Ferry Boat Captain, DNR Functional Assessment: PPS 50% mainly sit/lie; can't do any work/extensive disease; considerable assistance; normal or reduced intake; full LOC or confusion Prognosis: depends upon goals of care Spiritual Assessment: No spiritual distress identified Bereavement and Grief: To Be Determined PDMP/OARRS Reviewed: Yes-reviewed Social history: Marital status: Children: one child, . Living status: senior care Work history: n/a status: No Latter Day erma: None ROS: See palliative care ROS/ESAS below; Detail ROS unable to be obtained due to patient's mental status Republic Symptom Assessment Score Republic Score Pain Score (if non-verbal, add .FLACC [...] She had a recent long admission at [facility] for about a month, COVID-19, spesis. Cdiff [...] run its natural course. Opal Boyd MD [facility] - Infectious Diseases Attending Progress Note [...] -- -- 104 -- -- -- -- 10/25/24 2049 (!) 186/99 -- -- 111 -- -- -- -- 10/25/24 192 (!) 180/88 -- -- 104 -- -- -- -- 10/25/24 192 (!) 180/88 37.1 C (98.8 F) -- [...] excised. Encephalopathy- worse today( compared to previous [facility] admission) Leukocytosis. ESRD, on HD. Recent h/o [...] Dysphagia - Soft and Bite Sized per MANAGER INTERNSHIP recommendation. No additional renal restrictions needed for [...] unable to state how she was eating CARBURETOR REBUILDER) Weight Loss: No significant weight loss Body Fat Loss: Unable to assess (Limited d/t pt not cooperative) Muscle Mass Loss: Unable to assess (Limited cooperation from the patient; decreased level of alertness this afternoon) Fluid Accumulation: No significant fluid accumulation Sap Bw Developer Strength: Measurable reduction in final dressing cutter strength (per development intern) Nutrition Assessment: Pt's diet advanced to Soft and Bite Sized 10/25 per MANAGER INTERNSHIP recommendation s/p evaluation 10/25 and 10/26. Pt [...] On: Kcal/kg Weight Used for Energy Requirements: [place] Weight for Energy Calculation (kg): 55 kg Total Energy Requirements (kcals/day): 4964-6601 (27-32 kcal/kg IBW) Weight Used for Protein Requirements: [place] Weight in Kg Used for Protein Requirements: [...] bed scale) % Weight Change (Calculated): -1.2 [place] Body Weight (lbs) (Calculated): 120 lbs [place] Body Weight (Kg) (Calculated): 55 kg % [place] Body Weight (Calculated): 97.7 % BMI (kg/m2) [...] soon to determine Kelly Castro RD Contact: *[phone] or via Secure Chat Images from the [...] Received IV fluid bolus, antibiotics. [facility] work up. Critical care consulted the following day as patient remained febrile, tachycardic and tachypneic. WBC count also continuing to increase with worsening anemia. Patient has had multiple admissions 08/14 to 08/24 at [facility] for cardiac arrest, 08/26 to 09/06 at [...] Th, Sat HD. Patient currently resides at [facility] and will return on discharge Interval History: [...] Keppra HTN HLD Debility Recent CDIFF-treated at [facility] Plan As a result of the above [...] Emergency Contact: Deshawn Crystal Mobile Relation: Brother Lode Miner Blasting needed? No Secondary Emergency Contact: Edward Ruggiero Mobile Relation: Significant Other Preferred language: Bots[place]an Lode Miner Blasting needed? No PARK Ureña CNP Division of Hospitalist Medicine [facility] [1] Past Medical History: Diagnosis [...] Lab Units 10/22/24 1451 COLOR U Light Denali* CLARITY U Clear PH U pH 8.5* [...] []PD [] CrCl ml/min (if ROLANDO, no WATERMELON INSPECTOR) Infectious Diagnosis: sepsis (target level = mg/L) [...] 9:34 AM Won Gutiérrez PharmD (available on Not[employer]) Images from the original note were not included. Speech-Language Pathology SPEECH LANGUAGE PATHOLOGY [facility] Patient Name: Apoorva Gonzalez Evaluation Date: 10/26/2024 Date of : 1950 Admission Date: 10/22/2024 12:48 PM Age: 74 y.o. Room/Bed: 222-02/222-02 A Subjective Patient alert, confused and some [...] Start: 10/24/24 Expected End: 11/07/24 Therapy Time MANAGER INTERNSHIP Individual Minutes Time In: 0850 Time Out: 911 Minutes: 22 NIRU Quiroz Images from the original note were not included. [facility] - Infectious Diseases Attending Progress Note [...] admissions; hospitalized from 08/14 - 08/24 at [facility] for cardiac arrest and sepsis and again from 08/26 to 09/06 at for sepsis believed to be due to an infected right thigh wound and hematoma; again at [facility] from 09/13 - 10/12/24 due to covid-19, [...] 1005 Aerobic and Anaerobic Culture with Stain [[id number]] Drainage from Arm, Left In process Component Value No component results 10/24/2024 0958 10/24/2024 1439 Culture, Aerobic Bacteria with Gram Stain [[id number]] Drainage from Arm, Left Preliminary result Component Value Culture Culture in progress P Gram Stain Result Many Polymorphonuclear leukocytes per low power field P No organisms seen P 10/24/2024 0958 10/24/2024 1005 Anaerobic culture [[id number]] Drainage from Arm, Left In process Component Value No component results 10/22/2024 2305 10/24/2024 0401 Blood culture Site #1 - Suspected Infection [[id number]] Blood, Venous Preliminary result Component Value Blood Culture No growth at 24 hours P 10/22/2024 1705 10/23/2024 2101 Blood culture Site #2 - Suspected Infection [[id number]] Blood, Venous Preliminary result Component Value Blood Culture No growth at 24 hours P 10/22/2024 1602 10/22/2024 2123 Respiratory Pathogens Panel by PCR [[id number]] Swab from Nasopharynx Final result Component Value [...] 1458 Aerobic and Anaerobic Culture with Stain [[id number]] (Abnormal) Other from Buttock, Left In process Component Value No component results 10/22/2024 1434 10/24/2024 1028 Culture, Aerobic Bacteria with Gram Stain [[id number]] (Abnormal) Other from Buttock, Left Preliminary result Component Value Culture Few skin camilo present P Many Enterobacter cloacae complex Abnormal P Gram Stain Result Rare Polymorphonuclear leukocytes per low power field Abnormal P Many Gram negative bacilli Abnormal P 10/22/2024 1434 10/22/2024 1458 Anaerobic culture [[id number]] Other from Buttock, Left In process Component Value No component results 10/22/2024 1411 10/23/2024 2101 Blood culture Site #1 - Suspected Infection [[id number]] Blood, Venous Preliminary result Component Value Blood Culture No growth at 24 hours P 10/09/2024 1541 10/14/2024 0950 Aerobic and Anaerobic Culture with Stain [[id number]] Drainage from Fistula Final result Component Value No component results 10/09/2024 1541 10/12/2024 0920 Culture, Aerobic Bacteria with Gram Stain [[id number]] Drainage from Fistula Final result Component Value Culture No growth at 72 hours Gram Stain Result Moderate Polymorphonuclear leukocytes per low power field No organisms seen 10/09/2024 1541 10/14/2024 0950 Anaerobic culture [[id number]] Drainage from Fistula Final result Component Value Culture No growth at 5 days 10/05/2024 1601 10/05/2024 1713 Respiratory culture and Stain [[id number]] (Abnormal) Sputum from Bronchus Final result Component [...] 10/05/2024 1747 Respiratory Pathogens Panel by PCR [[id number]] Swab from Nasopharynx Final result Component Value [...] sites ok Radiography/Echo/Other: IR nontunneled catheter placement [[id number]] Collected: 10/23/24 111 Order Status: Completed Updated: [...] 11:17 AM EDT XR chest 1 view [[id number]] Collected: 10/22/241544 Order Status: Completed Updated: 10/22/24 [...] EDT IR CVC Tunneled Dialysis Cath Exchange [[id number]] Collected: 10/12/24 134 Order Status: Completed Updated: [...] 1:46 PM EDT IR nontunneled catheter placement [[id number]] Collected: 10/09/24 1549 Order Status: Completed Updated: 10/09/24 4915 Narrative: Patient Name: APOORVA GONZALEZ : 1950 [...] PM EDT CT head wo IV contrast [[id number]] Collected: 10/06/24313 Order Status: Completed Updated: 10/06/24326 Narrative: Patient Name: APOORVA GONZALEZ : 1950 Exam Date/Time: 10/05/2024 23:23 Procedure: CT HEAD WO IV CONTRAST Ordering Provider: CARABALLO GEORGE Reason For Exam: AMS EXAMINATION: CT HEAD WO IV CONTRAST HISTORY: AMS - - - - - [id number] - - - - change in mental [...] orbits and extracranial soft tissues are unremarkable. Mineralogy Teacher (topogram) images: No additional findings. Impression: No CT evidence of an acute intracranial abnormality. Report Dictated on Electronically Signed By: Kev Goldstein MD Electronically Signed Date/Time: 10/06/2024 3:[address] chest abdomen pelvis with contrast [[id number]] Collected: 10/06/24 0851 Order Status: Completed Updated: 10/06/24903 Narrative: Patient Name: APOORVA GONZALEZ : 1950 [facility]#: [id number] Exam Date/Time: 10/05/2024 23:23 Procedure: CT CHEST [...] 9:03 AM EDT XR chest 1 view [[id number]] Collected: 10/05/242039 Order Status: Completed Updated: 10/05/242042 Narrative: [facility] 1950 [id number] Exam Date/Time: 10/05/2024 20:36 Procedure: XR CHEST [...] 8:41 PM EDT XR chest 1 view [[id number]] Collected: 10/05/24 1449 Order Status: Completed Updated: [...] included. PHYSICAL THERAPY [facility] Treatment Note Name/MRN: Apoorva Gonzalez ([id number]) Date of : 1950 Age: 74 y.o. Room/Bed: 222-/222- A Visit #: 1 out of 5 visits Discharge Recommendation: Correction Facility Equipment Needed: No Prior Level of [...] 12 15* 17* LIVER PROFILE: Recent Labs 10/23/242 10/24/24 0649 AST 34* 28 ALT <6 [...] - dietary following Dysphagia - seen by MANAGER INTERNSHIP and now on bite sized soft diet [...] Emergency Contact: Deshawn Crystal Mobile Relation: Brother Lode Miner Blasting needed? No Secondary Emergency Contact: BahmanEdward Mobile Relation: Significant Other Preferred language: Botswanan Lode Miner Blasting needed? No Delmy Go APRN - INSTRUMENT ASSEMBLER Division of Hospitalist Medicine [facility] [1] Past Medical History: Diagnosis Date Chronic kidney disease (CKD) Hemodialysis patient (CMS/HCC) (HCC) Wednesday, , Wednesday History of blood transfusion 02/27/2022 Hypertension Seizure ([facility]) Developed seizure-like activity on 02/24 during [...] were not included. [facility] Wound Care Progress Note Apoorva Gonzalez AGE: 74 y.o. GENDER: female : 1950 Subjective: HISTORY of PRESENT ILLNESS HPI Apoorva Gonzalez is a 74 y.o. female who presents for a wound care follow up. HPI: Apoorva is a 74 y.o. female who presented to the emergency department on 10/22/24 with chief complaint of AMS. Pt is resident of [place] at [facility]. Report one day of increasing weakness and AMS. She receives dialysis 5x/week Wed-Wednesday. No missed sessions. Temp 101.3F at [facility]. Hospitalized from 08/14 - 08/24 at [facility] for cardiac arrest and sepsis and again from 08/26 to 09/06 at for sepsis believed to be due to an infected right thigh wound and hematoma. Hospitalized again at [facility] from 09/13 - 10/12 due to covid-19 [...] no cyanosis Sacrum extending to left buttock: 2.1a1eBNP cm. Wound bed with a mix of [...] to follow Recommend to follow up at [facility] wound care center after hospital discharge. Any questions or concerns please secure chat "[facility] wound/ostomy". Thank you for the [...] 01/25/2024 Performed by Chrissy Gilman MD at [facility] ENDOSCOPY IR CVC TUNNELED DIALYSIS CATHETER PLACEMENT 02/27/2022 IR CVC TUNNELED CATHETER PLACEMENT 02/27/[address] [facility] SPECIAL PROCEDURES IR EMBOLIZATION 01/24/2024 IR EMBOLIZATION 01/24/[address] [facility] SPECIAL PROCEDURES [3] Family History Problem Relation [...] not included. Speech-Language Pathology SPEECH LANGUAGE PATHOLOGY [facility] Patient Name: Apoorva [...] Dietary Orders (From admission, onward) Start Ordered 07/20/25 1852 NPO diet with enteral medications Diet effective now Comments: Please do not give oral medications if she is not awake enough to take them Question: Medications? Answer: with enteral medications 10/22/24 4191 Oxygen: Oxygen Therapy: None (Room air) I [...] Start: 10/24/24 Expected End: 11/07/24 Therapy Time MANAGER INTERNSHIP Individual Minutes Time In: 835 Time Out: [...] []PD [] CrCl ml/min (if ROLANDO, no WATERMELON INSPECTOR) Infectious Diagnosis: sepsis (target level = mg/L) [...] 11:21 PM Joann Floyd PharmD (available on NextNineu) [facility] PROGRESS NOTE Subjective Interval [...] Lab Units 10/22/24 1451 COLOR U Light Denali* CLARITY U Clear PH U pH 8.5* [...] from the original note were not included. [facility] - Infectious Diseases Attending Progress Note [...] admissions; hospitalized from 08/14 - 08/24 at [facility] for cardiac arrest and sepsis and again from 08/26 to 09/06 at for sepsis believed to be due to an infected right thigh wound and hematoma; again at [facility] from 09/13 - 10/12/24 due to covid-19, [...] -- -- -- 117 25 96 % 07/21/25 1904 -- -- -- 116 25 97 [...] 1005 Aerobic and Anaerobic Culture with Stain [[id number]] Drainage from Arm, Left In process Component Value No component results 10/24/2024 0958 10/24/2024 1439 Culture, Aerobic Bacteria with Gram Stain [[id number]] Drainage from Arm, Left Preliminary result Component Value Culture Culture in progress P Gram Stain Result Many Polymorphonuclear leukocytes per low power field P No organisms seen P 10/24/2024 0958 10/24/2024 1005 Anaerobic culture [[id number]] Drainage from Arm, Left In process Component Value No component results 10/22/2024 2305 10/24/2024 0401 Blood culture Site #1 - Suspected Infection [[id number]] Blood, Venous Preliminary result Component Value Blood Culture No growth at 24 hours P 10/22/2024 1705 10/23/2024 2101 Blood culture Site #2 - Suspected Infection [[id number]] Blood, Venous Preliminary result Component Value Blood Culture No growth at 24 hours P 10/22/2024 1602 10/22/2024 2123 Respiratory Pathogens Panel by PCR [[id number]] Swab from Nasopharynx Final result Component Value [...] 1458 Aerobic and Anaerobic Culture with Stain [[id number]] (Abnormal) Other from Buttock, Left In process Component Value No component results 10/22/2024 1434 10/24/2024 1028 Culture, Aerobic Bacteria with Gram Stain [[id number]] (Abnormal) Other from Buttock, Left Preliminary result Component Value Culture Few skin camilo present P Many Enterobacter cloacae complex Abnormal P Gram Stain Result Rare Polymorphonuclear leukocytes per low power field Abnormal P Many Gram negative bacilli Abnormal P 10/22/2024 1434 10/22/2024 1458 Anaerobic culture [[id number]] Other from Buttock, Left In process Component Value No component results 10/22/2024 1411 10/23/2024 2101 Blood culture Site #1 - Suspected Infection [[id number]] Blood, Venous Preliminary result Component Value Blood Culture No growth at 24 hours P 10/09/2024 1541 10/14/2024 0950 Aerobic and Anaerobic Culture with Stain [[id number]] Drainage from Fistula Final result Component Value No component results 10/09/2024 1541 10/12/2024 0920 Culture, Aerobic Bacteria with Gram Stain [[id number]] Drainage from Fistula Final result Component Value Culture No growth at 72 hours Gram Stain Result Moderate Polymorphonuclear leukocytes per low power field No organisms seen 10/09/2024 1541 10/14/2024 0950 Anaerobic culture [[id number]] Drainage from Fistula Final result Component Value Culture No growth at 5 days 10/05/2024 1601 10/05/2024 1713 Respiratory culture and Stain [[id number]] (Abnormal) Sputum from Bronchus Final result Component [...] 10/05/2024 1747 Respiratory Pathogens Panel by PCR [[id number]] Swab from Nasopharynx Final result Component Value [...] HD cath Radiography/Echo/Other: IR nontunneled catheter placement [[id number]] Collected: 10/23/24 111 Order Status: Completed Updated: 10/23/241117 Narrative: [facility] Name[facility] 1950 [id number] Exam Date/Time: 10/23/2024 10:26 Procedure: IR NONTUNNELED [...] 11:17 AM EDT XR chest 1 view [[id number]] Collected: 10/22/24 154 Order Status: Completed Updated: [...] EDT IR CVC Tunneled Dialysis Cath Exchange [[id number]] Collected: 10/12/241343 Order Status: Completed Updated: 10/12/241346 Narrative: Patient Name: APOORVA [facility]ON[facility]ALEZ : 1950 [id number] Exam Date/Time: 10/12/2024 11:51 Procedure: IR CVC [...] 1:46 PM EDT IR nontunneled catheter placement [[id number]] Collected: 10/09/24 1549 Order Status: Completed Updated: 10/09/24 1558 Narrative: Patient Name: [facility]OOR[facility]Z [facility] 1950 [id number] Exam Date/Time: 10/09/2024 14:08 Procedure: IR NONTUNNELED [...] PM EDT CT head wo IV contrast [[id number]] Collected: 10/06/244 Order Status: Completed Updated: 10/06/24326 Narrative: Patient Name: APOORVA GONZALEZ : 1950 Exam Date/Time: 10/05/2024 23:23 Procedure: CT HEAD WO IV CONTRAST Ordering Provider: CARABALLO GEORGE Reason For Exam: AMS EXAMINATION: CT HEAD WO IV CONTRAST HISTORY: AMS - - - - - [id number] - - - - change in mental [...] orbits and extracranial soft tissues are unremarkable. Mineralogy Teacher (topogram) images: No additional findings. Impression: No CT evidence of an acute intracranial abnormality. Report Dictated on Electronically Signed By: Kev Goldstein MD Electronically Signed Date/Time: 10/06/2024 3:[address] chest abdomen pelvis with contrast [[id number]] Collected: 10/06/24 0851 Order Status: Completed Updated: [...] Report Dictated on Electronically Signed By: Robson Adnrade MD Electronically Signed Date/Time: 10/06/2024 9:03 AM EDT XR chest 1 view [[id number]] Collected: 10/05/242039 Order Status: Completed Updated: 10/05/242042 [...] 8:41 PM EDT XR chest 1 view [[id number]] Collected: 10/05/24 1449 Order Status: Completed Updated: [...] included. PHYSICAL THERAPY [facility] Initial Evaluation Name/MRN: Apoorva Gonzalez ([id number]) Evaluation Date: 10/24/2024 Date of : 1950 Admission Date: 10/22/2024 12:48 PM Age: 74 y.o. Room/Bed: 222/ A Discharge Recommendation: Correction Facility Equipment Needed: No Assessment IMPRESSION: Pt admitted 10/23 with sepsis, altered mental status. She has had multiple recent hospital admissions, was at [facility] 09/13-10/12 for Afib and COVID-19, PNA. Prior to that was at [facility] with R thigh hematoma and I&D, went into cardiac arrest. Prior to these hospitalizations was IND but since has been at SNF with plan to transition to watermelon inspector care. I spoke with PT at SNF [...] Raw Score (No Stairs) : 7 JH-HLM -HL Score: Sat at edge of bed Plan [...] of Care supervision is transferred to a [facility] Therapy Services Physical Therapist. Goals and/or treatment plan was established in collaboration with patient/family/other representatives. [1] Past Medical History: Diagnosis Date Chronic kidney disease (CKD) Hemodialysis patient ([facility]) ([facility]) Wednesday, , Wednesday History of blood transfusion 02/27/2022 Hypertension Seizure ([facility]) Developed seizure-like activity on 02/24 during hospital admission [2] Past Surgical History: Procedure Laterality Date AV FISTULA PLACEMENT Left 08/07/2022 COLONOSCOPY N/A 01/25/2024 Performed by Chrissy Gilman MD at [facility] ENDOSCOPY IR CVC TUNNELED DIALYSIS CATHETER PLACEMENT 02/27/2022 IR CVC TUNNELED CATHETER PLACEMENT 02/27/[address] [facility] HOSPITAL SPECIAL PROCEDURES IR EMBOLIZATION 01/24/2024 IR EMBOLIZATION 01/24/[address] [facility] SPECIAL PROCEDURES Speech-Language Pathology SPEECH LANGUAGE [facility] Bedside Swallow Evaluation Patient Name: Apoorva Gonzalez Evaluation Date: 10/24/2024 Date of : 1950 Admission Date: 10/22/2024 12:48 PM Age: 74 y.o. Room/Bed: 222/ A IMPRESSION: No s/s oropharyngeal dysphagia. No [...] required. Pt would benefit from skilled acute MANAGER INTERNSHIP services to repeat bedside swallow evaluation. Frequency: [...] Retrospective chart review revealed a history of MANAGER INTERNSHIP services as follows: speech therapy services from [...] complaint of AMS. Pt is resident of [place] at [facility]. Collateral hx provided by [facility] nurse and EMS. Report one day of increasing weakness and AMS. She receives dialysis 5x/week Wed-Wednesday. No missed sessions. Temp 101.3F at [facility]. Hospitalized from 08/14 - 08/24 at [facility] for cardiac arrest and sepsis and again from 08/26 to 09/06 at for sepsis believed to be due to an infected right thigh wound and hematoma Hospitalized again at [facility] from 09/13 - 10/12 due to covid-19 [...] Start: 10/24/24 Expected End: 11/07/24 Therapy Time MANAGER INTERNSHIP Individual Minutes Time In: 0816 Time Out: 35 Minutes: 19 Levi Louis MANAGER INTERNSHIP Graduate Clinician [1] Past Medical History: Diagnosis Date Chronic kidney disease (CKD) Hemodialysis patient (CMS/HCC) (HCC) Wednesday, , Wednesday History of blood transfusion 02/27/2022 Hypertension Seizure ([facility]) Developed seizure-like activity on 02/24 during hospital admission [2] Past Surgical History: Procedure Laterality Date AV FISTULA PLACEMENT Left 08/07/2022 COLONOSCOPY N/A 01/25/2024 Performed by Chrissy Gilman MD at [facility] ENDOSCOPY IR CVC TUNNELED DIALYSIS CATHETER PLACEMENT 02/27/2022 IR CVC TUNNELED CATHETER PLACEMENT 02/27/[address] [facility] SPECIAL PROCEDURES IR EMBOLIZATION 01/24/2024 IR EMBOLIZATION 01/24/[address] [facility] SPECIAL PROCEDURES Cosigned by NIRU Quiroz at 10/24/2024 10:19 AM EDT ICU Progress Note Name: Apoorva Gonzalez : 1950(74 y.o.) Date: 10/24/24 Team: MICU Attending: William Subjective: Hospital Summary: Ms Gonzalez is a 74 year old female who presented 10/22 from [facility] due to altered mental status. In the ED was noted to be febrile, tachycardic, tachypneic and with elevated WBC. Received IV fluid bolus, antibiotics. Ad[facility] for further work up. Critical care consulted [...] Normal [] Scar/Lesion/Mass Inspection of teeth/lips/gums Dentition: []Resighini Teeth []Dentures Lips/Gums: [x]Intact []Lesion Present Mucosa: [x][place]cl[place] []Moist []Dry Neck: External Appearance Overall Appearance: [...] 15.5* ABGs: No results for input(s): "PHART", "PBQ3FPU", "PO2ART", "MAS1XCC", "SO2ART", "Z2JMLGRR" in the last 72 hours. Lactic Acid: [...] given brown drainage. Would consider transfer to [facility] for evaluation by vascular surgery -WATERMELON INSPECTOR per nephrology -Transfuse to maintain hemoglobin >7 -Hypoglycemia protocol GI Prophylaxis: none indicated DVT Prophylaxis: Heparin subcutaneous Disposition: Transfer to [facility] Critical Care Time: 38 minutes Total critical [...] 12:17 PM Leticia Carty RPh (available on Notifix[employer]) Images from the original note were not included. PHYSICAL THERAPY [facility] Name/MRN: Apoorva Gonzalez ([id number]) Date: 10/23/2024 Therapy eval and treat orders [...] stay. Julian Lerner PT Spiritual Care Note [facility] Palliative Care Patient Name:Apoorva Gonzalez Chief Complaint: Chief Complaint Patient presents with Altered Mental Status Pt came from senior care. Squad was called for weakness and altered [...] and when patient is able. Debriefed: with marine gear keeper team. Gretchen Adames 10/23/24 Nutrition Assessment Type and Reason for Visit: Initial (ICU admit) Nutrition Recommendations/Plan: NPO and off unit for tunneled line placement. Recommend ADAT as deemed safe and appropriate by MANAGER INTERNSHIP Should alternative nutrition route align with goals [...] and seizure. With recent lengthy admit to [facility] 09/13-10/12/24 with confusion, generalized pain and SOB. Founds to be COVID+ on arrival. +Blood cultures for Enterobacter cloacae, antibiotics changes to vanc/cefepime and ID recommended 3 days of remdesivir. Course complicated by lethargy and AMS following iHD on 09/14 and WATERMELON INSPECTOR later called with unresponsive episode, and hypoxia with hypoglycemia. Required levophed and transferred to ICU and started on CRRT. +Decadron and required 2u PRBC for Hgb of 5.9. CRRT weaned to iHD on 09/16; S/P Dobhoff placement on 09/16 due to encephalopathy, however on 09/17 MANAGER INTERNSHIP recommended Easy to Chew diet and dobhoff removed. Transferred from ICU to [facility] on 09/17. Palliative care consulted and supporting, as well as nephrology for ESRD. Unfortunately, she was transferred back to the ICU on 10/05/2024 due to concerns for recurrent sepsis after getting a fever and tachycardia with a lactic acidosis during dialysis. Patient david [facility] 11-11-2024 Miscellaneous Notes Care Management Progress Note Short Medical why still here: Anticipate Medical readiness for discharge today. Requested update from attending. Also updated attending that patient's Auth is good through today. Planned Discharge Disposition: [facility] approved 11/06/24 and Auth approved 11/08-11/11/24 Barriers/Today [...] this time. Auth obtained to return to [place] [facility] until 11/11. MD updated. RN reports continued bleeding, low BS and pain this am. Will follow. Per [facility] auth yesterday and that they started a new auth today. Received notification that [facility] has auth for her to return. Noted hgb drop and vascular sx at bedside today to examine her LUE incision, no need for intervention at this time. Facility asked when auth is good until, awaiting response. Updated notes [facility] request. Await review and response regarding ability to accept. TCC notified. MANAGED SECURITY SALES CONSULTANT messaged to send updates to [facility] with request to start auth to return. Care Management Progress Note Short Medical why still here: s/p graft hematoma sx yesterday for bleeding issues. Vascular signed off this am, hgb stable. Planned Discharge Disposition: [facility] Facility, needs auth to return to [facility], PT asked to see today for [...] as well as with her power of wastewater treatment plant instructor and brother Deshawn. They elected to proceed. [...] Rojas MD Vascular Surgery Date: 11/05/2024 Location: [facility] OR Name: Apoorva Gonzalez, : 1950, Diagnosis Pre-op Diagnosis * Bleeding [R58] Post-op Diagnosis * Bleeding [R58] Procedures Evacuation of left upper extremity hematoma and control of bleeding Surgeons * Raffy Rojas - Primary Procedure Summary Anesthesia: * No anesthesia type entered * ASA: III Estimated Blood Loss: 35 mL Drains: * None in log * Staff: Mat Machine Tender: Kori Khan RN Relief Scrub: Mak Adler [...] Planned for Dialysis today. Planned Discharge Disposition: [facility] [place] Latisha, heather, Auth Pending. Updates attached to [facility] for facility to review. Requested update from [...] Rojas MD Vascular Surgery Date: 11/02/2024 Location: [facility] OR Name: Apoorva Gonzalez, : 1950, Diagnosis Pre-op Diagnosis * Sepsis, due to unspecified organism, unspecified whether acute organ dysfunction present (HCC) [A41.9] Post-op Diagnosis * Sepsis, due to unspecified organism, unspecified whether acute organ dysfunction present (HCC) [A41.9] Procedures EXCISION OF LEFT UPPER EXTREMITY INFECTED GRAFT [id number] - MS EXCISION INFECTED GRAFT EXTREMITY Surgeons * Raffy Rojas - Primary Procedure Summary Anesthesia: General ASA: III Estimated Blood Loss: 350 mL Drains: Open Drain Left (Active) Specimens ID Source Type Tests Collected By Collected At Frozen? Priority Lab ID A Arm, Left Tissue AEROBIC AND ANAEROBIC CULTURE WITH STAIN Raffy Rojas MD 11/02/24 0913 [id number], [id number] Description: left upper extremity AV fistula B Arm, Left Tissue AEROBIC AND ANAEROBIC CULTURE WITH STAIN Raffy Rojas MD 11/02/24 1017 [id number], [id number] Description: LEFT ARM DISTAL AV FISTULA GRAFT Staff: Mat Machine Tender: Nicole Hyatt RN Relief Mat Machine Tender: Alicia Foley RN Scrub Person: Tc Leonard [...] Short Medical why still here: Patient from [facility] for vascular surgery to assess AV fistula. Patient is scheduled for surgery on Wednesday. Planned Discharge Disposition: [facility] Facility- return to [facility] once medically stable Barriers/Today we still Wait: Clinical stability Length of Stay (Days): 10 GMLOS: 4.9 Care Management Progress Note Short Medical why still here: -Pt will transfer to [facility] for vascular surgery to evaluate if new AV fistula will be needed. -Now on PO ATB -Monitoring labs -Has temporary HD cath and non-tunneled L IJ Planned Discharge Disposition: Pt is from [facility] and will return when medically ready. Pt does need auth before she can return. Pt gets HD at facility 5 days/week at facility. Barriers/Today we still Wait: Administering IV medications, Clinical stability, Symptomatic control, Vascular recommendations and Facility pre-cert hardware manager to follow and assist as needed. Length of Stay (Days): 9 GMLOS: 4.9 Sent updated notes to return back [facility] request. Await review and response regarding ability to accept. TCC notified. Care Management Progress Note Short Medical why still here: Treating sepsis with IV ATB, ID following. BP's elevated-utilizing prn BP meds. Needs fistula placement for HD. Receives HD T/TH/WED. Has temporary HD cath in place. Will need probable transfer to [facility] for new fistula placement. Left central line to be pulled. Pt will transition to PO ATB at discharge. Planned Discharge Disposition: [facility] Facility Back to [facility]-new auth will be needed when pt is closer to medical stability once she has fistula placement. Tasked MANAGED SECURITY SALES CONSULTANT to send updated clinicals to facility. Did speak with her brother Deshawn and confirmed pt will return to [facility]. Barriers/Today we still Wait: Administering IV medications, Clinical stability, Symptomatic control, new fistula Per 10/29 IM note, "if pt does not improve within 2-3 days, brother (POA) may consider hospice". However, hospice will not be pursued at this time. hardware manager to follow and assist as needed. Length of Stay (Days): 8 GMLOS: 4.9 Family Communication Number Called: [phone] Name of Designated Family Security And Compliance Analyst: Deshawn CrystalOA/ Brother I spoke with the individual listed above Family Security And Compliance Analyst Updated on the Following: Changed Code staus to DNRCCA , please see my progress note from today for details Care Management Progress Note Short Medical why still here: receiving hemodialysis on Wednesday, , Wednesday schedule. Has non-tunneled central line. On IV keppra and meropenem. Receiving PRBC today. Planned Discharge Disposition: [facility] Facility Barriers/Today we still Wait: Clinical stability, Administering IV medications, Symptomatic control, Diagnostic workup Requested orders for PT&OT eval for auth for return to [facility]. Length of Stay (Days): 5 GMLOS: 4.9 Referral placed to return back to [facility] via [facility] per [facility] request. Await review and response regarding ability to accept. TCC notified. ICU Transfer Checklist Transfer Med Reconciliation (resume home meds if able, convert to PO if able) Complete Antibiotics (name, indication, duration, convert to PO if able) Yes, addressed in today's progress note Steroid (indication, duration, convert to PO if able) None Anticipated [place] Medications (ICU initiated) or Dose Changes and [...] within 24 hours of ICU transfer, page #[phone] for clarifications. Patient was transferred out of ICU to hospitalist service. Care Management Progress Note Short Medical why still here: Re-admitted 10/22 with sepsis, AMS and buttock wound. Consults to Nephro, Palliative Care, Wound Care and PT/OT. IV Merrem 1gm Q12. Non-tunneled left internal jugular placed. AV fistula felt to be occluded. Chart review shows that patient recently discharged from [facility] to [facility]. Task sent to [facility] to send referral for possible return. PT recommending SNF. Will continue to follow for ongoing needs and improvement in mentation. Planned Discharge Disposition: [facility] Facility- return to [facility]? Pending ability to accept back Barriers/Today we still Wait: Clinical stability, Symptomatic control Length of Stay (Days): 2 GMLOS: 4.9 Family Communication Number Called: [phone] Name of Designated Family Security And Compliance Analyst: Deshawn Bonilla Relationship to patient: Brother Outcome: There was no answer when the number listed above was called and I left a HIPPA compliant message at the number listed above Family Security And Compliance Analyst Updated on the Following: -Planned to give non-urgent medical update and re-introduce palliative care team. -No answer. Message left with callback number. -Await callback. Signed, Lilliana Rae APRN, CNP, [facility]/Hospice [facility] [phone] Family Communication Number Called: n/a Name of Designated Family Security And Compliance Analyst: Deshawn Crystal Relationship to patient: Brother Outcome: I spoke with the individual listed above Family Security And Compliance Analyst Updated on the Following: -Received callback from [...] yesterday. -He is on the way from [facility] (2 hours) -Discussion around code status. DNR on file, however remains full code at this time. -Questions answered, concerns addressed, emotional support provided. -Return tomorrow. Signed, Lilliana Rae APRN, CNP, [facility] Palliative Care/Hospice [facility] [phone] 30 Day Readmission. Hospital Readmission Questionnaire not completed due to patient readmitted from skilled or rehabilitation facility. documented in this encounter [facility] 11-01-2024 Consult note Associated Order [...] 2022) (additional history below) who presents to [facility] ED with a chief complaint of transferred from [facility] for management of left AV fistula [...] Deshawn it was decided to transfer to [facility] for vascular assessment and possible removal of [...] transfusion 02/27/2022 Hypertension Seizure ([facility]) Developed seizure-like activity on 02/24 during hospital admission [2] Past Surgical History: Procedure Laterality Date AV FISTULA PLACEMENT Left 08/07/2022 COLONOSCOPY N/A 01/25/2024 Performed by Chrissy Gilman MD at [facility] ENDOSCOPY IR CVC TUNNELED DIALYSIS CATHETER PLACEMENT 02/27/2022 IR CVC TUNNELED CATHETER PLACEMENT 02/27/[address] [facility] SPECIAL PROCEDURES IR EMBOLIZATION 01/24/2024 IR EMBOLIZATION 01/24/[address] [facility] SPECIAL PROCEDURES [3] [4] PRN medications: acetaminophen [...] with Altered Mental Status Pt came from senior care. Squad was called for weakness and altered mental status. Pt is not diabetic. Gcs 14 due to confusion a&ox2. Pt bgl was 99. Pt fistula is in left arm . History of Present Illness Recent course is as follows per recent documentation: Hospitalized at [facility] 08/14/2024 with sudden cardiac arrest thought to be due to complications from sepsis due to a right thigh and anterior hip abscess. She underwent I&D in the OR and was treated with a 7-day course of IV Zosyn, and was discharged to a long-term facility on 08/24/2024 with a wound VAC. She re-presented to [facility] on 08/26/2024 for increased pain of her right thigh, found to have an expanding hematoma and required 2 units of PRBCs, she was transferred to for consideration of IR embolization but eventually it was stable and did not require this procedure. Last month was admitted to [facility] with COVID, pneumonia, a.fib. She was discharged from [facility] less than 2 weeks ago. Came over to [facility] yesterday with sepsis: high fever, [...] dialysis purposes only by dialysis or trained public accountant for CRRT. Any other access must be ordered and approved by nephrology. Line to be accessed for dialysis purposes only by dialysis or trained public accountant for CRRT. Any other access must be [...] provider. Standing Status: Standing Number of Occurrences: [id number] HYPOGLYCEMIA TREATMENT: blood glucose less than 70 [...] provider. Standing Status: Standing Number of Occurrences: [id number] Full code Standing Status: Standing Number of [...] of Unknown Etiology Inpatient consult to Infectious Diseases--[facility]; Sepsis - with complex history previous bacteremia with cardiac arrest Standing Status: Standing Number of Occurrences: 1 Consulting Group: [facility] [[id number]] Reason for Consult?: Sepsis - with complex history previous bacteremia with cardiac arrest Level of Consultation: Consultation and Management Did you contact the lead consultant?: No When to contact consulting provider: Tomorrow Inpatient consult to Wound Prevention Standing Status: Standing Number of Occurrences: 1 Reason for Consult:: Arnol score, Prevention Inpatient consult to Palliative Care Standing Status: Standing Number of Occurrences: 1 Consulting Group: [facility] [[id number]] Reason for consult?: Assistance with clarification of goals of care Inpatient consult to Nephrology--[facility]; Dialysis Standing Status: Standing Number of Occurrences: 1 Consulting Group: [facility] [[id number]] Reason for Consult?: Dialysis Level of Consultation: Consultation and Management Did you contact the lead consultant?: No When to contact consulting provider: [...] Oxygen. Standing Status: Standing Number of Occurrences: [id number] MANAGER INTERNSHIP eval and treat Standing Status: Standing Number of Occurrences: 1 Reason for MANAGER INTERNSHIP Consult?: Dysphagia (bedside swallow evaluation) MANAGER INTERNSHIP eval and treat Standing Status: Standing Number of Occurrences: 1 Reason for MANAGER INTERNSHIP Consult?: Dysphagia (bedside swallow evaluation) POCT glucose [...] transfusion 02/27/2022 Hypertension Seizure ([facility]) Developed seizure-like activity on 02/24 during hospital admission [2] Past Surgical History: Procedure Laterality Date AV FISTULA PLACEMENT Left 08/07/2022 COLONOSCOPY N/A 01/25/2024 Performed by Chrissy Gilman MD at [facility] ENDOSCOPY IR CVC TUNNELED DIALYSIS CATHETER PLACEMENT 02/27/2022 IR CVC TUNNELED CATHETER PLACEMENT 02/27/[address] [facility] SPECIAL PROCEDURES IR EMBOLIZATION 01/24/2024 IR EMBOLIZATION 01/24/[address] [facility] SPECIAL PROCEDURES [3] Family History Problem Relation [...] ( ) Alternate is s/o Edward Ruggiero [phone]) -see subjective for details of conversation -goals of care include: 1) continue infectious workup 2)maintain full code 3)continue goals of care conversations -Palliative care saw last admission while at [facility]-->spouse has , daughter has . Noted that emergency contacts appear to be grandsons-->Mayur and Sharad (both above 18 yo), Brother-->Deshawn Crystal and s/o Edward Patelers. -HCPOA documented to have been filled out at facility recently-->copy was emailed to me today from [facility]. Faxed to medical records to be scanned into chart. Sepsis -Recent admission at [facility] for sepsis, Cdiff. -Wound cultures PENDING. -Blood [...] discussion with brother today re: baseline function. -MANAGER INTERNSHIP consulted, unable to address today 2/2 mentation continuing to be poor. -Monitor, remains NPO for now with encephalopathy. Debility Wounds -ongoing, 2/2 chronically ill and long hospitalizations recently. -This is her 5th admission over the last year. -Noted WCB at baseline at facility. -PT/OT when able. -Likely return to facility at ut pending clinical course. -Monitor. Hx Seizures -Keppra 500 mg IVPB ordered. -Monitor. Hx ESRD -Dialysis -Noted that tunneled like previously inserted last admission ([facility]-->10-13) -Nephrology consulted -Creatinine Cl 6.5 mL/min -Avoid nephrotoxic medications. -Renally dose medications -Last dialysis yesterday per brother. Hx CP arrest --->while at [facility]. Palliative Care Encounter -Code Status: Full [...] She had a recent long admission at [facility] for about a month, COVID-19, spesis. Cdiff [...] detailed in the note above. Lilliana Rae, DISTRICT COMMERCIAL SUPERINTENDENT - INSTRUMENT ASSEMBLER Palliative Care Assessments: Goals of care: Continue Current Management, Live Longer, extend life as much as possible, Strengthening Relationships, and Support for Family/Caregiver Advanced Directives: Health Care Power of Ferry Boat Captain, DNR Functional Assessment: PPS 50% mainly sit/lie; can't do any work/extensive disease; considerable assistance; normal or reduced intake; full LOC or confusion Prognosis: depends upon goals of care Spiritual Assessment: No spiritual distress identified Bereavement and Grief: To Be Determined PDMP/OARRS Reviewed: Yes-reviewed Social history: Marital status: Children: one child, . Living status: senior care Work history: n/a status: No Latter Day erma: None ROS: See palliative care ROS/ESAS below; Detail ROS unable to be obtained due to patient's mental status Republic Symptom Assessment Score Republic Score Pain Score (if non-verbal, add .FLACC [...] this time Transition Note Initiated: yes Lilliana Rae APRN - INSTRUMENT ASSEMBLER [1] Past Medical History: Diagnosis Date Chronic kidney disease (CKD) Hemodialysis patient (CMS/HCC) (HCC) Wednesday, , Wednesday History of blood transfusion 02/27/2022 Hypertension Seizure (HCC) Developed seizure-like activity on 02/24 during hospital admission [2] Past Surgical History: Procedure Laterality Date AV FISTULA PLACEMENT Left 08/07/2022 COLONOSCOPY N/A 01/25/2024 Performed by Chrissy Gilman MD at [facility] ENDOSCOPY IR CVC TUNNELED DIALYSIS CATHETER PLACEMENT 02/27/2022 IR CVC TUNNELED CATHETER PLACEMENT 02/27/[address] [facility] SPECIAL PROCEDURES IR EMBOLIZATION 01/24/2024 IR EMBOLIZATION 01/24/[address] [facility] SPECIAL PROCEDURES [3] Family History Problem Relation [...] Received IV fluid bolus, antibiotics. [facility] for further work up. This morning critical [...] Violence: Not At Risk (08/31/2024) Received from [facility] Humiliation, Afraid, Rape, and Kick questionnaire Fear [...] 03/02/22 10/22/24 Yes Evan Joshua APRN - INSTRUMENT ASSEMBLER B complex-vitamin C-folic acid (Nephro-Coleen) 0.8 MG [...] mouth daily. 03/02/22 10/22/24 Yes Evan Joshua, DISTRICT COMMERCIAL SUPERINTENDENT - INSTRUMENT ASSEMBLER meclizine (Antivert) 25 MG tablet Take 1 tablet (25 mg) by mouth 3 times daily as needed for dizziness for up to 10 doses. 06/29/24 Yes Robson Syed DO sevelamer (Renagel) 800 MG tablet Take [...] Normal [] Scar/Lesion/Mass Inspection of teeth/lips/gums Dentition: []Resighini Teeth []Dentures Lips/Gums: [x]Intact []Lesion Present Mucosa: []Macclenny []Moist []Dry Neck: External Appearance Overall Appearance: [...] 15.5* ABGs: No results for input(s): "PHART", "JOH7IJM", "PO2ART", "MSH7ZCS", "SO2ART", "V9DACZFN" in the last 72 hours. Lactic Acid: Recent Labs 10/22/24 141 LACTATE 1.5 INR: No results for input(s): [...] acute organ dysfunction present ([facility]) Assessment/Plan: Severe sepsis ESRD on HD [...] (CKD) Hemodialysis patient (CMS/HCC) ([facility]) Wednesday, , Wednesday History of blood transfusion 02/27/2022 Hypertension Seizure (HCC) Developed seizure-like activity on 02/24 during hospital admission [2] Past Surgical History: Procedure Laterality Date AV FISTULA PLACEMENT Left 08/07/2022 COLONOSCOPY N/A 01/25/2024 Performed by Chrissy Gilman MD at [facility]COPY IR CVC TUNNELED DIALYSIS CATHETER PLACEMENT 02/27/2022 IR CVC TUNNELED CATHETER PLACEMENT 02/27/[address] [facility] IR EMBOLIZATION 01/24/2024 IR EMBOLIZATION 01/24/[address] [facility] [3] Family History Problem Relation Name Age of Onset Dementia Mother Stroke Father Prostate cancer Brother 69 Breast cancer Cousin 32 Stomach cancer Mother's Sister 70 [4] No Known Allergies Associated Order(s): IP CONSULT TO INFECTIOUS DISEASES Images from the original note were not included. [facility] - Infectious Diseases Attending Consult Note Reason for Consult: Sepsis History of Present Illness: 74 y/o female was admitted on 10/22/24 from [facility] due to fever of 101.3 F increased [...] admissions; hospitalized from 08/14 - 08/24 at [facility] for cardiac arrest and sepsis and again from 08/26 to 09/06 at for sepsis believed to be due to an infected right thigh wound and hematoma; again at [facility] from 09/13 - 10/12/24 due to covid-19, [...] Violence: Not At Risk (08/31/2024) Received from [facility] Humiliation, Afraid, Rape, and Kick questionnaire Fear [...] Blood culture Site #1 - Suspected Infection [[id number]] Blood, Venous Preliminary result Component Value Blood Culture Blood culture incubation started P 10/22/2024 1705 10/22/2024 2201 Blood culture Site #2 - Suspected Infection [[id number]] Blood, Venous Preliminary result Component Value Blood Culture Blood culture incubation started P 10/22/2024 1602 10/22/2024 2123 Respiratory Pathogens Panel by PCR [[id number]] Swab from Nasopharynx Final result Component Value [...] 1458 Aerobic and Anaerobic Culture with Stain [[id number]] (Abnormal) Other from Buttock, Left In process Component Value No component results 10/22/2024 1434 10/22/2024 2148 Culture, Aerobic Bacteria with Gram Stain [[id number]] (Abnormal) Other from Buttock, Left Preliminary result Component Value Culture Culture in progress P Gram Stain Result Rare Polymorphonuclear leukocytes per low power field Abnormal P Many Gram negative bacilli Abnormal P 10/22/2024 1434 10/22/2024 1458 Anaerobic culture [[id number]] Other from Buttock, Left In process Component Value No component results 10/22/2024 1411 10/22/2024 2201 Blood culture Site #1 - Suspected Infection [[id number]] Blood, Venous Preliminary result Component Value Blood Culture Blood culture incubation started P Lines: Tunneled HD cath on 10/12/24 Radiography/Echo/Other: Procedure Component Value Units Date/Time XR chest 1 view [[id number]] Collected: 10/22/24 154 Order Status: Completed Updated: 10/22/241546 Narrative: [facility] 1950 [id number] Exam Date/Time: 10/22/2024 15:17 Procedure: XR CHEST [...] EDT IR CVC Tunneled Dialysis Cath Exchange [[id number]] Collected: 10/12/241343 Order Status: Completed Updated: 10/12/241346 Narrative: Patient Name: APOORVA GONZALEZ : 1950 [facility]#: [id number] Exam Date/Time: 10/12/2024 11:51 Procedure: IR CVC [...] Left 08/07/2022 COLONOSCOPY N/A 01/25/2024 Performed by hCrissy Gilman MD at [facility] IR CVC TUNNELED DIALYSIS CATHETER PLACEMENT 02/27/2022 IR CVC TUNNELED CATHETER PLACEMENT 02/27/[address] [facility] IR EMBOLIZATION 01/24/2024 IR EMBOLIZATION 01/24/[address] [facility] [3] Current Facility-Administered Medications Medication [...] Loni Zambrano MD 5,000 Units at 10/22/24 233 levETIRAcetam in sodium chloride (Keppra) IVPB 500 mg 500 mg IntraVENous Daily Jalen Snider MD Stopped at 10/22/24 233 ondansetron ODT (Zofran-ODT) disintegrating tablet 4 mg [...] were not included. [facility] Wound Care CONSULT Note Apoorva Gonzalez AGE: 74 y.o. GENDER: female : 1950 Subjective: HISTORY of PRESENT ILLNESS HPI Apoorva Gonzalez is a 74 y.o. female who presents for a wound consult. HPI: Apoorva is a 74 y.o. female who presented to the emergency department on 10/22/24 with chief complaint of AMS. Pt is resident of [place] at [facility]. Report one day of increasing weakness and AMS. She receives dialysis 5x/week Mon-Wednesday. No missed sessions. Temp 101.3F at [facility]. Hospitalized from 08/14 - 08/24 at [facility] for cardiac arrest and sepsis and again from 08/26 to 09/06 at for sepsis believed to be due to an infected right thigh wound and hematoma. Hospitalized again at [facility] from 09/13 - 10/12 due to covid-19 [...] no cyanosis Sacrum extending to left buttock: 2.9i6oEZP cm. Wound bed with a mix of [...] to follow Recommend to follow up at [facility] Outpatient wound care center after hospital discharge. Any questions or concerns please secure chat "[facility] wound/ostomy". Thank you for the [...] 01/25/2024 Performed by Chrissy Gilman MD at [facility] IR CVC TUNNELED DIALYSIS CATHETER PLACEMENT 02/27/2022 IR CVC TUNNELED CATHETER PLACEMENT 02/27/[address] [facility] IR EMBOLIZATION 01/24/2024 IR EMBOLIZATION 01/24/[address] [facility] [3] Family History Problem Relation [...] creatinine, and vancomycin levels interfaced automatically to [employer] and data has been analyzed and interpreted. [...] via Secure Chat documented in this encounter [facility] 10-31-2024 Hospital Discharge instructions Jessica La RN - 10/31/2024 2:42 PM EDT Images from the original note were not included. Continuity of Care Form Patient Name: Apoorva Navarro [place] : 1950 Admit date: 10/22/2024 Discharge date: 11/11/24 Code Status Order: DNR-CCA Advance Directives: Y Admitting Physician: Loni Zambrano MD PCP: Roxie Spain Discharging Nurse: Discharging Hospital Unit/Room#: B2-258/B2-258 A Discharging Unit Phone Number: [phone] Emergency Contact: Extended Emergency Contact Information Primary Emergency Contact: Deshawn Crystal Mobile Relation: Brother Lode Miner Blasting needed? No Secondary Emergency Contact: RuggieroEdward Mobile Relation: Significant Other Preferred language: Botswanan Lode Miner Blasting needed? No Past Surgical History: Past Surgical History: Procedure Laterality Date AV FISTULA PLACEMENT Left 08/07/2022 COLONOSCOPY N/A 01/25/2024 Performed by Chrissy Gilman MD at [facility] IR CVC TUNNELED DIALYSIS CATHETER PLACEMENT 02/27/2022 IR CVC TUNNELED CATHETER PLACEMENT 02/27/[address] [facility] IR EMBOLIZATION 01/24/2024 IR EMBOLIZATION 01/24/[address] [facility] Immunization History: Immunization History Administered [...] Total assistance Toileting Total assistance Feeding Independent Leakage Tester Minimal assistance Med Delivery yes Wound Care Documentation and Therapy: Wound/Incision 09/14/24 Incision Leg Anterior;Right;Upper (Active) Number of days: 46 Wound/Incision 09/26/24 Pressure Injury Sacrum (Active) Site Assessment Macclenny;Yellow 10/30/24 1002 Aminah-Wound Assessment Clean;Intact 10/30/246 Wound Length (cm) 2.4 cm 10/23/24 0830 Wound Width (cm) 3 cm 10/23/24 0830 Wound Surface Area (cm^2) 5.65 cm^2 10/23/24 0830 Odor None 10/29/24 1058 Drainage Amount Small 10/30/24 1002 Treatments Site care;Pharmaceutical agent 10/30/24 1002 Primary Dressing Foam 10/30/242225 Dressing Status Clean, dry & intact 10/30/242225 Number of days: 34 Elimination: Continence: Bowel: [...] Date: 10/22/24 Discharging to Facility/ Agency Name: [facility] Address: [address] [place] [address] Fax: Dialysis Facility (if applicable) Name:[facility] Address:[address] [place] [address] Dialysis Schedule:TThSa Fax: Mastic Worker/Service Line Layer signature: ICIAN SECTION Name: Apoorva Gonzalez Prognosis: [...] to a nursing facility directly from an [facility] or a unit of a [facility] that is not operated by or licensed by [facility] under section 5119.14 or 5160-3-15.1 5 The individual requires the level of services provided by a nursing facility for the condition for which he or she was treated in the hospital and, Physician Certification: I certify the above information and transfer of Apoorva Gonzalez is necessary for the continuing treatment of the diagnosis listed and that she requires long-term facility for less than 30 days. Update [...] intervention. PHYSICIAN SIGNATURE: documented in this encounter [facility] 10-22-2024 Procedure note Superintendent Schools arrived at pt room to draw cultures from tunnel dialysis line. While wearing proper ppe and using aseptic technique. Blood drawn and put into aerobic and anerobic culture bottles. Cvc was heparinized and capped, dressing changed documented in this encounter [facility] 10-22-2024 History and physical note [...] respite facility but she resides at in [facility], typically uses a wheel chair [...] Recently admitted from 09/13 to 10/12 at [facility] for new onset atrial fibrillation complicated by [...] recent infected hematoma which was I&D at [facility] and treated with antibiotics from 08/14-08/24 in which she went under cardiac arrest which was thought to be due to the right thigh and anterior hip abscess - which was drained and she left with wound vac. Returned on 08/26 for expanding hematoma to the right thigh requiring 2 units of pRBC, and transferred to [facility] for IR emobolization of [...] Date Chronic kidney disease (CKD) Hemodialysis patient ([facility]/HCC) ([facility]) Wednesday, , Wednesday History of blood transfusion 02/27/2022 Hypertension Seizure ([facility]) Developed seizure-like activity on 02/24 during [...] Resource Strain: Low Risk (08/31/2024) Received from [facility] Overall Financial Resource Strain (CARDIA) Difficulty of Paying Living Expenses: Not hard at all Food Insecurity: No Food Insecurity (08/31/2024) Received from [facility] Hunger Vital Sign Worried About Running Out of Food in the Last Year: Never true Ran Out of Food in the Last Year: Never true Transportation Needs: No Transportation Needs (08/31/2024) Received from [facility] PRAPARE - Transportation Lack of Transportation (Medical): No Lack of Transportation (Non-Medical): No Physical Activity: Not on file Stress: Not on file Social Connections: Not on file Intimate Partner Violence: Not At Risk (08/31/2024) Received from [facility] Humiliation, Afraid, Rape, and Kick questionnaire Fear of Current or Ex-Partner: No Emotionally Abused: No Physically Abused: No Sexually Abused: No Housing Stability: Low Risk (08/31/2024) Received from [facility] Housing Stability Vital Sign Unable to Pay [...] Emergency Contact: Deshawn Crystal Mobile Relation: Brother Lode Miner Blasting needed? No [employer] Apoorva Navarro [place] : 1950 Primary Care Physician: Roxie Spain The patient and/or family/surrogate voluntarily agreed to participate in ACP services. Patient s cognitive capacity: confused Code Status: [X] [FULL CODE - Continue all advanced life support: CPR,intubation,invasive procedures] [_] [DNR-CCA - DO NOT do CPR, intubation] [_] [DNR-EMISSIONS ENGINEER - Comfort care only] [_] DNR form [...] Loni Zambrano MD Division of Hospitalist Medicine [facility] [1] Past Surgical History: Procedure Laterality Date AV FISTULA PLACEMENT Left 08/07/2022 COLONOSCOPY N/A 01/25/2024 Performed by Chrissy Gilman MD at [facility]COPY IR CVC TUNNELED DIALYSIS CATHETER PLACEMENT 02/27/2022 IR CVC TUNNELED CATHETER PLACEMENT 02/27/[address] [facility] IR EMBOLIZATION 01/24/2024 IR EMBOLIZATION 01/24/[address] [facility] [2] Family History Problem Relation Name Age of Onset Dementia Mother Stroke Father Prostate cancer Brother 69 Breast cancer Cousin 32 Stomach cancer Mother's Sister 70 [3] Current Facility-Administered Medications: sodium chloride 0.9 % infusion, 5-250 mL/hr, IntraVENous, PRN, Tuan Montoya, DO sodium chloride 0.9% (NS) flush 5-40 mL, 5-40 mL, IntraVENous, 2 times per day, Tuan Bela Montoya, DO sodium chloride 0.9% (NS) flush 5-40 mL, 5-40 mL, IntraVENous, PRN, Tuan Montoya DO vancomycin (Vancocin) 1,000 mg in sodium chloride 0.9 % 250 mL IVPB, 1,000 mg, IntraVENous, q24h, Tuan Montoya DO Current Outpatient Medications: atorvastatin (Lipitor) 40 [...] No Known Allergies documented in this encounter [facility] 10-22-2024 Emergency department Note USIV stopped working, unable to start vanc at this time. WATERMELON INSPECTOR RN called for USIV. Provider notified. Pt's grandson Mayur (information in contacts) would like contacted if pt's status changes. US IV placed by Dr Montoya, one set of cultures obtained from that line. DO attempted second US for second set of blood cultures without success and states we will just send one set of blood cultures. Medic unable to obtain US IV. mortgage field inspector notified and is to attempt. Unable to [...] with Altered Mental Status Pt came from senior care. Squad was called for weakness and altered [...] complaint of AMS. Pt is resident of [place] at [facility]. Collateral hx provided by [facility] nurse and EMS. Report one day of increasing weakness and AMS. She receives dialysis 5x/week Wed-Wednesday. No missed sessions. Temp 101.3F at [facility]. Hospitalized from 08/14 - 08/24 at [facility] for cardiac arrest and sepsis and again from 08/26 to 09/06 at for sepsis believed to be due to an infected right thigh wound and hematoma Hospitalized again at [facility] from 09/13 - 10/12 due to covid-19 [...] Response: Confused Best Motor Response: Localizes pain Sanborn Coma Scale Score: 12 Objective: PHYSICAL EXAM [...] - Abnormal Result Value Color, Urine Light Denali (*) Clarity, Urine Clear pH, Urine 8.5 [...] Glucose 99 Narrative: Performed by: [facility], [address] [place] [address] [place] [address] CLIA ID: [id number] BLOOD CULTURE BLOOD CULTURE AEROBIC AND ANAEROBIC CULTURE WITH STAIN Narrative: The following orders were created for panel order Aerobic and Anaerobic Culture with Stain. Procedure Abnormality Status --------- ------ Culture, Aerobic Bacteri...[[id number]] In process Anaerobic culture[[id number]] In process Please view results for these [...] acute organ dysfunction present ([facility]) 2. Altered mental status, unspecified altered [...] Date Chronic kidney disease (CKD) Hemodialysis patient ([facility]/HCC) ([facility]) Wednesday, , Wednesday History of blood transfusion 02/27/2022 Hypertension Seizure ([facility]) Developed seizure-like activity on 02/24 during hospital admission [2] Past Surgical History: Procedure Laterality Date AV FISTULA PLACEMENT Left 08/07/2022 COLONOSCOPY N/A 01/25/2024 Performed by Chrissy Gilman MD at [facility]COPY IR CVC TUNNELED DIALYSIS CATHETER PLACEMENT 02/27/2022 IR CVC TUNNELED CATHETER PLACEMENT 02/27/[address] [facility] IR EMBOLIZATION 01/24/2024 IR EMBOLIZATION 01/24/[address] [facility] [3] Family History Problem Relation [...] Resource Strain: Low Risk (08/31/2024) Received from [facility] Overall Financial Resource Strain (CARDIA) Difficulty of Paying Living Expenses: Not hard at all Food Insecurity: No Food Insecurity (08/31/2024) Received from [facility] Hunger Vital Sign Worried About Running Out of Food in the Last Year: Never true Ran Out of Food in the Last Year: Never true Transportation Needs: No Transportation Needs (08/31/2024) Received from [facility] PRAPARE - Transportation Lack of Transportation (Medical): No Lack of Transportation (Non-Medical): No Intimate Partner Violence: Not At Risk (08/31/2024) Received from [facility] Humiliation, Afraid, Rape, and Kick questionnaire Fear of Current or Ex-Partner: No Emotionally Abused: No Physically Abused: No Sexually Abused: No Housing Stability: Low Risk (08/31/2024) Received from [facility] Housing Stability Vital Sign Unable to Pay for Housing in the Last Year: No Number of Times Moved in the Last Year: 0 Homeless in the Last Year: No Tuan Montoya DO Resident 10/22/24 1636 Cosigned by Veronica Abebe MD at 10/23/2024 3:09 PM EDT Emergency Department Encounter [facility] ED Patient: Apoorva Gonzalez : [...] to the emergency department with AMS from senior care. Pt is a poor historian. Focused exam: [...] Tuan Montoya DO Diagnoses as of 10/22/24 1604 Sepsis, due [...] for clarification.) Veronica Abebe MD Acute Care [facility] Veronica Abebe MD 10/22/24 1604 documented in this encounter [facility] 09-06-2024 Plan of care note [...] include Patient will remain safe throughout shift [facility] 09-06-2024 Miscellaneous Notes Problem: Pain - Adult [...] who presented as transfer from [facility] for IR embolization of thigh hematoma. Note patient had a recent hospitalization at [facility] on 08/14 with sudden cardiac arrest, though to be sepsis due to R thigh and anterior hip abscess She underwent CT guided aspiration then I&D in OR, treated with IV Zosyn x7 days then discharged 08/24 to SNF with wound vac. Cultures reported to be negative. She re-presented to [facility] on 08/26 for increased pain in [...] incrementation to 8.1. Patient was transferred to [facility] for IF embolization of [...] of 08/30, with plan for transfer to [facility] for potential embolization. The patient arrived to [facility] around 0001 08/31/24. Initial [...] injury during shift Transfer Acceptance Note - [facility] Medicine Receiving Facility: [facility] Accepting Physician: Carine Mejia DO Date/Time: 7:54 AM Patient: Apoorva Gonzalez Sending Facility: [facility] Reason for Transfer: Evaluation and management of acutely bleeding R anterior thigh hematoma requiring IR embolization (not available at sending facility). Dr. Clarke Mckeon from IR at [facility] was contacted and agreed with transfer specifically to [facility] for embolization. Pertinent History: Presentation: Presented from [facility] to [facility] ED with increased right lower extremity pain and swelling, concern for hematoma, ortho and vascular consulted. CTA of lower extremity done showing contrast pooling in hematoma with active bleeding. Vascular recommended urgent transfer for IR embolization. Past Medical History: ESRD on HD (T, Th, Sat), HTN, HLD, chronic anemia. Recent hospitalization at [facility] on 08/14 with sudden cardiac arrest, [...] RA Disposition: Accepted to General Medicine at [facility] for: Management of acute R anterior thigh hematoma with acute blood loss anemia (on chronic anemia) with planned IR embolization at [facility]. Coordination of multidisciplinary evaluation (e.g., IR, vascular surgery, nephrology) Note: Transfer center and sending facility advised to re-contact accepting physician if any clinical deterioration occurs prior to arrival. Hospitalist [facility] documented in this encounter [facility] Work Phone: 09-06-2024 History of Present illness Narrative Occupational Therapy OT Treatment Patient Name: Apoorva Gonzalez Department: [facility] LK 60 Room: 6013/6013-A Today's Date: 09/06/2024 Time [...] 08/30 as a transfer from [facility] due to right anterior thigh hematoma. [...] A to elva, educated on use of bulb brander for LE dressing, extended time to complete [...] 1: bed mobility, transfers, functional mobility Outcome Measures:[facility] Daily Activity Putting on and taking [...] States make urine Musculoskeletal: Comments: Rt thigh hnbfrgqwz-fshuxdso-kmdwzmox intact Ble without edema Skin: General: Skin [...] cont to monitor Outpatient Dialysis schedule: TTS [facility] [place] Access: lt fist- no issues - able [...] inpatient and to follow with the outpatient press cleaner at discharge MAYANK Longo 09/06/24 1311 Discharge Planning Home or Post Acute Services In home services Expected Discharge Disposition Home H Does the patient need discharge transport arranged? No Insurance denied auth to SNF. Patient agreeable to home care. MD will place home care orders. Updated flow sheets sent to patient dialysis center ([facility]). Dialysis center informed patient will return tomorrow. Brother will provide transportation home and to dialysis tomorrow. [facility] can accept. They are home care services that are offered through her insurance. Final home care orders and AVS sent to agency. Ann Sheridan RN, BSN Transitional Driver'S Education Instructor Name: Apoorva Gonzalez Age: 74 y.o. Date [...] abscess, s/p I&D and antibiotics who presents [facility] on 08/30 for R thigh hematoma. IR consulted and not recommending IR embolization. Serial H/H. #. Rt Thigh hematoma s/p abscess drainage #Right anterior thigh cellulitis and hematoma - Recent hospitalization at [facility] on 08/14 with sudden cardiac arrest, [...] - consult nephro for HD - cw amosid 10 on non dialysis days #acute on chronic anemia- due to blood loss - anemia of chronic disease due to ESRD #hx of seizures cw [facility] [place] Code Status: Full DVT ppx: on hold [...] Post Acute Services Post acute facilities (Rehab/SNF/etc) ([facility]) Type of Post Acute Facility Services group home Expected Discharge Disposition SNF Does the patient need discharge transport arranged? Yes RoundTrip coordination needed? Yes Precert is still pending to [facility]. Confirmed with facility that they offer dialysis onsite. Anticipating discharge today vs tomorrow. Will continue to follow for updates. Ann Sheridan RN, BSN Transitional Driver'S Education Instructor Renal Staff HD Note I visited and [...] by mouth 3 (three) times a week. thiamine (Vitamin B-1) 250 mg tablet Other Yes No Sig: Take 1 tablet (250 mg) by mouth once daily. Facility-Administered Medications: None Current Medications[2] Images: ASSESSMENT AND PLAN: -Continue treatment per submitted orders Brandt Aaron MD Senior Attending Physician Director of Onco-Nephrology Program Division of Nephrology & Hypertension [facility] [1] PRN medications: HYDROmorphone, meclizine [2] Current [...] States make urine Musculoskeletal: Comments: Rt thigh tbzgsxdqm-hapclnwl-dsozwsyb intact Ble without edema Skin: General: Skin [...] stable electrolytes . K+=4.1 Outpatient Dialysis schedule: [facility] Access: lt fist- no issues - able [...] inpatient and to follow with the outpatient press cleaner at discharge MAYANK Longo 09/04/24 Transitional Driver'S Education Instructor Notes: Transitional Care Coordination Progress Note: Patient discussed during interdisciplinary rounds. Team members present: MD and TCC Plan per Medical/Surgical team: PT/OT is recommending moderate intensity therapy. Patient is agreeable and would like to return to [facility]. Referral placed with facility. Will continue to follow for updates. 1445 Updates: precert started by [facility]. Will continue to follow for updates. Payor: [...] 08/30 as a transfer from [facility] due to right anterior thigh hematoma. [...] ADLS and IADLs. Grandson's are available to warehouse picker groceries for her. States she can [...] to lift leg. Would benefit from leg dean of education Transfers Transfer: Yes Transfer 1 Technique 1: [...] LLE : Within Functional Limits Outcome Measures: [facility] Basic Mobility Turning from your back [...] to tolerance Mobility Training, taught by Jelly Ortega, PT at 09/04/2024 9:44 AM. Learner: Patient Readiness: Acceptance Method: Explanation Response: Verbalizes Understanding, Needs Reinforcement Comment: frequent ankle pumps, safe use of walker, transfer techniques, knee flexion to tolerance Education Comments No comments found. [1] Patient Active Problem List Diagnosis Hematoma Occupational Therapy Evaluation Patient Name: Apoorva Gonzalez Department: [place] [address] Room: [address] [place] [address] Today's Date: 09/04/2024 Time Calculation Start Time: 843 Stop Time: 857 Time Calculation (min): 14 min Assessment: OT [...] 08/30 as a transfer from [facility] due to right anterior thigh hematoma. 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 female [...] seizures(on keppra), HTN, presenting as transfer from [facility] for IR intervention for thigh hematoma. CTA [...] cellulitis and hematoma - Recent hospitalization at [facility] on 08/14 with sudden cardiac arrest, [...] cbc while inpatient #ESRD on dialysis - COREEN fistula - TT - consult nephro for HD - cw amosid 10 on non dialysis days #. acute [...] bleeding Disp: PT/ot pending POA: Son: Mayur [phone] I reviewed the resident/fellow's documentation and discussed [...] this note may have been generated using [employer] voice recognition software. Reasonable efforts were made [...] PRN medications: HYDROmorphone, meclizine 09/03/24 1612 Transitional Driver'S Education Instructor Notes: Transitional Care Coordination Progress Note: Patient discussed during interdisciplinary rounds. Team members present: MD and TCC Plan per Medical/Surgical team: Pending PT/OT to evaluate for discharge needs. Anticipating discharge for tomorrow. Payor: [employer]? Discharge disposition: [facility] Potential Barriers: none ADOD: 1-3 days Assessment [...] seizures(on keppra), HTN, presenting as transfer from [facility] for IR intervention for thigh hematoma. CTA [...] cellulitis and hematoma - Recent hospitalization at [facility] on 08/14 with sudden cardiac arrest, [...] this note may have been generated using [employer] voice recognition software. Reasonable efforts were made [...] seizures(on keppra), HTN, presenting as transfer from [facility] for IR intervention for thigh hematoma. CTA [...] cellulitis and hematoma - Recent hospitalization at [facility] on 08/14 with sudden cardiac arrest, [...] - consult nephro for HD - cw amosid 10 on non dialysis days #. acute [...] this note may have been generated using [employer] voice recognition software. Reasonable efforts were made [...] Daily [5] [6] PRN medications: HYDROmorphone, meclizine [facility] met with patient yesterday and again today for medicaid screening. Each time patient refuses screening stating that she has insurance. [facility] states her insurance is showing as inactive in the system. called [facility] to inquire if they are billing insurance for this patient. Dwain at [facility] states that she has a [employer] product and provides numbers: Group # [id number] Plan # [id number]. JOSÉ MIGUEL Rios Apoorva [...] States make urine Musculoskeletal: Comments: Rt thigh lunqnckvb-ibvucevh-wkwhybjs intact Ble without edema Skin: General: Skin [...] Units Result Value Ref Range PRODUCT CODE [id number] Unit Number [id number] Unit ABO O Unit RH POS XM [...] . K+=3.7 Outpatient Dialysis schedule: TTS [place] Access: lt fist- no issues - [...] inpatient and to follow with the outpatient press cleaner at discharge MAYANK Longo Apoorva Gonzalez is [...] Epic chat preferred Clinical updates [facility] to [facility] Paula Montes upon discharge on TTS schedule. Awaiting update from [facility] on medicaid eligibility. JOSÉ MIGUEL [...] Units Result Value Ref Range PRODUCT CODE [id number] Unit Number [id number] Unit ABO O Unit RH POS XM [...] seizures(on keppra), HTN, presenting as transfer from [facility] for IR intervention for thigh hematoma. CTA [...] cellulitis and hematoma - Recent hospitalization at [facility] on 08/14 with sudden cardiac arrest, [...] this note may have been generated using [employer] voice recognition software. Reasonable efforts were made [...] clinical response, and signs/symptoms of toxicity. Serge Tejeda, PharmD, BCPS Pharmacy Medication History Review Apoorva Gonzalez is a 74 y.o. female admitted for Hematoma. Pharmacy reviewed the patient's oiltm-rb-kblfjpdvu medications and allergies for accuracy. Medications ADDED: All medications on [employer] list Medications CHANGED: None Medications REMOVED: None The list below reflects the updated [employer] list. Prior to Admission Medications Prescriptions Last [...] Patient declines M2B at discharge. Sources: SNF --[facility] Additional Comments: [employer] medication list updated per [facility] SNF medication list List was active as of 08/26 Jenn Martin PharmD Transitions of Care Pharmacist 08/31/24 Secure Chat preferred If no response call [phone] or [employer] "Med Rec" 08/31/24 1248 Discharge Planning Living [...] were you homeless or living in a residential (including now)? N Transportation Needs In the [...] DME: [place]: denies Dialysis: [facility] in [place] TTS Social Work Needs: Patient stated she has transportation to dialysis. Denies any financial or social work needs. Transportation at discharge: will possibly need transportation home Potential Barriers: none Discharge Disposition: [facility] ADOD: 2-4 days Ann Sheridan RN, BSN Transitional Driver'S Education Instructor Apoorva Gonzalez is a 74 y.o. female [...] seizures(on keppra), HTN, presenting as transfer from [facility] for IR intervention for thigh hematoma. CTA was obtained that showed expanding hematoma in right thigh. Patient status post 2 units packed RBC. IR on board at this time did not recommended embolization, requested continue clinical monitoring and serial H&H. #. Rt Thigh hematoma s/p abscess drainage #Right anterior thigh cellulitis and hematoma - Recent hospitalization at [facility] on 08/14 with sudden cardiac arrest, [...] this note may have been generated using [employer] voice recognition software. Reasonable efforts were made [...] HYDROmorphone, meclizine, vancomycin documented in this encounter [facility] Work Phone: 09-06-2024 Hospital course Narrative Discharge [...] who presented as transfer from [facility] for IR embolization of thigh hematoma. Note patient had a recent hospitalization at [facility] on 08/14 with sudden cardiac arrest, though to be sepsis due to R thigh and anterior hip abscess She underwent CT guided aspiration then I&D in OR, treated with IV Zosyn x7 days then discharged 08/24 to SNF with wound vac. Cultures reported to be negative. She re-presented to [facility] on 08/26 for increased pain in [...] incrementation to 8.1. Patient was transferred to [facility] for IF embolization of [...] Levi Geronimo MD documented in this encounter [facility] Work Phone: 09-06-2024 Hospital Note Formatting of t his note might be different from the original. Apoorva Gonzalez is a 74 y.o. female presenting with pmhx of seizures(on keppra), ESRD on dialysis TTS LUE fistula, and HTN who presented as transfer from [facility] for IR embolization of thigh hematoma. Note patient had a recent hospitalization at [facility] on 08/14 with sudden cardiac arrest, though to be sepsis due to R thigh and anterior hip abscess She underwent CT guided aspiration then I&D in OR, treated with IV Zosyn x7 days then discharged 08/24 to SNF with wound vac. Cultures reported to be negative. She re-presented to [facility] on 08/26 for increased pain in [...] incrementation to 8.1. Patient was transferred to [facility] for IF embolization of [...] stable conditioned on 09/06 with home care. [facility] Work Phone: 09-06-2024 Hospital Discharge instructions Levi [...] a pleasure taking care of you at [facility]! Best, Dr. Levi Geronimo Ann Sheridan RN - 09/06/2024 1:31 PM EDT [facility] will provide your home care services. There contact number is . A nurse will contact you 24-48 hours post discharge to arrange services. documented in this encounter [facility] Work Phone: 09-06-2024 Plan of care note [...] did make progress toward the following goals. [facility] Work Phone: 09-05-2024 Nurse Note Patient walked around this evening in the hallway with the walker and she tolerated it well. She said moving around helps lessen her pain. [facility] 09-05-2024 Nurse Note Patient walked around this [...] 18 Temp 36.4 documented in this encounter [facility] Work Phone: 09-05-2024 Plan of care note [...] include Pt will remain safe throughout shift [facility] Work Phone: 09-05-2024 Nurse Note [...] Last Updated: 10:59 AM by AMELIA VALENZUELA [facility] 09-05-2024 Nurse Note Report from [...] assess when pt arrives to the unit. [facility] 09-05-2024 Plan of care note Problem: Pain [...] not make progress toward the following goals. [facility] Work Phone: 09-04-2024 Nurse Note During shift change pt was found coming out of bathroom with walker, which was tolerated well. Pt is alert and denies pain with clear speech. Pt has no concerns at this time. Call light and essentials wnr of pt. [facility] 09-04-2024 Plan of care note Problem: Pain [...] by end of the shift Outcome: Progressing [facility] 09-04-2024 Plan of care note The patient's [...] by end of the shift Outcome: Progressing [facility] 09-03-2024 Plan of care note The patient's [...] appropriate for maintaining nutritional needs Outcome: Progressing [facility] 09-02-2024 Procedure note I evaluated the patient during dialysis. No complaints. BP: 128/73 BFR: 400 Anticipated fluid removal: 2L Vascular access: left upper arm AVF Plan: Continue TTS dialysis schedule. Jennifer [facility] Work Phone: 09-02-2024 Procedure note I evaluated the patient during dialysis. No complaints. BP: 128/73 BFR: 400 Anticipated fluid removal: 2L Vascular access: left upper arm AVF Plan: Continue TTS dialysis schedule. Scheолегing documented in this encounter [facility] Work Phone: 09-02-2024 Nurse Note Report to [...] Last Updated: 10:45 AM by GUILHERME GONZALES [facility] 09-02-2024 Plan of care note Problem: Pain [...] level or baseline comfort level Outcome: Progressing [facility] Work Phone: 09-02-2024 Nurse Note Report from [...] Catheter Dressing: AVF Last Dressing Change: AVF [facility] 09-02-2024 Plan of care note [...] address these barriers include pain medication . [facility] 09-01-2024 Plan of care note The patient's [...] monitored and maintained or improved Outcome: Progressing [facility] 09-01-2024 hardware manager Note IR consulted for consideration of right thigh hematoma aspiration. Imaging features consistent with hematoma without an obvious suspicious target for infection/abscess aspiration. [facility] Work Phone: 09-01-2024 Plan of care note [...] these barriers include surgery and pain medication. [facility] Work Phone: 08-31-2024 Nurse Note Report to [...] Last Updated: 6:24 PM by DEISY CASTAÑEDA [facility] 08-31-2024 Nurse Note Pt hemoglobin 6.4. Md Toscano notified. Order to continue to monitor until next CBC draw. [facility] 08-31-2024 Consult note Associated Order (s): Inpatient [...] ESRD management She gets dialysis TTS at [facility] in [place]. She states her treatments have been uneventful [...] Arianna Hogan MD [1] No Known Allergies [facility] Work Phone: 08-31-2024 Consult note [...] ESRD management She gets dialysis TTS at [facility] in [place]. She states her treatments have been uneventful [...] 08/31 as a transfer from [facility] for further management of R thigh hematoma and possible IR embolization. Pt was recently hospitalized from 08/14-08/24/24 at [facility] for sudden cardiac arrest and sepsis [...] pt presented from SNF to [facility] ED with increased RLE pain and [...] concern for active bleeding. Pt transferred to [facility] on 08/31 for further management and possible [...] SEDRATE No results found for: "HIV1X2", "HIVCONF", "[id number]" No results found for: "HEPCABINIT", "HEPCAB", HCVPCRQUANT [...] Taken to the OR for I&D on 5/15 with no intra-op cultures due to lack [...] Evelia Mejia PharmD documented in this encounter [facility] Work Phone: 08-31-2024 Consult note Associated Order [...] 08/31 as a transfer from [facility] for further management of R thigh hematoma and possible IR embolization. Pt was recently hospitalized from 08/14-08/24/24 at [facility] for sudden cardiac arrest and sepsis [...] pt presented from SNF to [facility] ED with increased RLE pain and [...] concern for active bleeding. Pt transferred to [facility] on 08/31 for further management and possible [...] SEDRATE No results found for: "HIV1X2", "HIVCONF", "[id number]" No results found for: "HEPCABINIT", "HEPCAB", HCVPCRQUANT [...] [4] [5] PRN medications: HYDROmorphone, meclizine, vancomycin [facility] Work Phone: 08-31-2024 Nurse Note Report from [...] 83) HR 83 RR 18 Temp 36.4 [facility] Work Phone: 08-31-2024 Plan of care note The patient's goals for the shift include rest The clinical goals for the shift include pt will remain safe during shift [facility] Work Phone: 08-31-2024 hardware manager Note Apoorva Gonzalez is a 74 [...] of 08/30, with plan for transfer to [facility] for potential embolization. The patient arrived to [facility] around 0001 08/31/24. Initial [...] JUSTINE ROQUE on 08/31/24 at 9:02 AM. [facility] Work Phone: 08-31-2024 Consult note Associated Order [...] and signs/symptoms of toxicity. Evelia Mejia PharmD [facility] Work Phone: 08-31-2024 Plan of care note [...] safe and free from injury during shift [facility] Work Phone: 08-31-2024 History and physical note History Of Present Illness Apoorva Gonzalez is a 74 y.o. female presenting with pmhx of seizures(on keppra), ESRD on dialysis Tths LUE fistula, HTN, presenting as transfer from [facility] for IR intervention . Patient initially presented [...] for intervention. Of note: Recent hospitalization at [facility] on 08/14 with sudden cardiac arrest, [...] the past 2 days Assessment & Plan Catia Gonzalez is a 74 y.o. female presenting with pmhx of seizures(on keppra), ESRD on dialysis Tths LUE fistula, HTN, presenting as transfer from [facility] for IR intervention for R thigh hematoma, [...] ] [facility] #acute on chronic anemia :: labs suggesting anemia of chronic disease, re-obtain labs here #hx of seizures cw keppra F: as needed E: K>4 Mg>2 N: npo A: PIV DVT Ppx: none GI Ppx: none Code status: full code NOK: Extended Emergency Contact Information Primary Emergency Contact: Edward mandel Mobile Relation: Significant Other Preferred language: Botswanan Lode Miner Blasting needed? No Cory Montelongo MD [1] No [...] decision making as documented in the note. [facility] Work Phone: 08-31-2024 History and physical note History Of Present Illness Apoorva Gonzalez is a 74 y.o. female presenting with pmhx of seizures(on keppra), ESRD on dialysis Tths LUE fistula, HTN, presenting as transfer from [facility] for IR intervention . Patient initially presented [...] for intervention. Of note: Recent hospitalization at [facility] on 08/14 with sudden cardiac arrest, [...] LUE fistula, HTN, presenting as transfer from [facility] for IR intervention for R thigh hematoma, [...] ] consult renal in am - cw amosid 10 on non dialysis days #acute on chronic anemia :: labs suggesting anemia of chronic disease, re-obtain labs here #hx of seizures cw keppra F: as needed E: K>4 Mg>2 N: npo A: PIV DVT Ppx: none GI Ppx: none Code status: full code NOK: Extended Emergency Contact Information Primary Emergency Contact: Edward mandel Mobile Relation: Significant Other Preferred language: Botswan[place] Lode [employer] Blasting needed? No Cory Montelongo MD [1] No [...] in the note. documented in this encounter [facility] Work Phone: 08-30-2024 hardware manager Note Transfer Acceptance Note - [facility] Medicine Receiving Facility: [facility] Accepting Physician: Carine Mejia DO Date/Time: 7:54 AM Patient: Apoorva Gonzalez Sending Facility: [facility] Reason for Transfer: Evaluation and management of acutely bleeding R anterior thigh hematoma requiring IR embolization (not available at sending facility). Dr. Clarke Mckeon from IR at [facility] was contacted and agreed with transfer specifically to [facility] for embolization. Pertinent History: Presentation: Presented from SNF to [facility] ED with increased right lower extremity pain and swelling, concern for hematoma, ortho and vascular consulted. CTA of lower extremity done showing contrast pooling in hematoma with active bleeding. Vascular recommended urgent transfer for IR embolization. Past Medical History: ESRD on HD (T, Th, Sat), HTN, HLD, chronic anemia. Recent hospitalization at [facility] on 08/14 with sudden cardiac arrest, [...] RA Disposition: Accepted to General Medicine at [facility] for: Management of acute R anterior thigh hematoma with acute blood loss anemia (on chronic anemia) with planned IR embolization at [facility]. Coordination of multidisciplinary evaluation (e.g., IR, vascular surgery, nephrology) Note: Transfer center and sending facility advised to re-contact accepting physician if any clinical deterioration occurs prior to arrival. Hospitalist [facility] Work Phone: 07-17-2024 Emergency department Note Discharged. Instructions given. Concerns addressed. Patient aware of dialysis schedule. Visitor at bedside and is driving patient home. Patient is alert oriented and cooperative. Gait is steady. No sign or symptom of distress. Transported to [facility] via wheel chair. [facility] 07-17-2024 Emergency department Note Discharged. Instructions given. Concerns addressed. Patient aware of dialysis schedule. Visitor at bedside and is driving patient home. Patient is alert oriented and cooperative. Gait is steady. No sign or symptom of distress. Transported to [facility] via wheel chair. This RN is [...] Date Chronic kidney disease (CKD) Hemodialysis patient ([facility]) ([facility]) Wednesday, , Wednesday History of blood transfusion 02/27/2022 Hypertension Seizure ([facility]) Developed seizure-like activity on 02/24 during hospital admission SURGICAL HISTORY Past Surgical History: Procedure Laterality Date AV FISTULA PLACEMENT Left 08/07/2022 COLONOSCOPY N/A 01/25/2024 Performed by Chrissy Gilman MD at [facility] ENDOSCOPY IR CVC TUNNELED DIALYSIS CATHETER PLACEMENT 02/27/2022 IR CVC TUNNELED CATHETER PLACEMENT 02/27/[address] [facility] SPECIAL PROCEDURES IR EMBOLIZATION 01/24/2024 IR EMBOLIZATION 01/24/[address] [facility] CURRENT MEDICATIONS Current Discharge Medication [...] Homeless in the Last Year: No SCREENINGS San[place] Coma Scale Best Eye Response: To verbal stimuli Best Verbal Response: Oriented Best Motor Response: Follows commands [place] Coma Scale Score: 14 PHYSICAL EXAM ED [...] transfusion 02/27/2022 Hypertension Seizure ([facility]) Developed seizure-like activity on 02/24 during hospital admission Past Surgical History: Procedure Laterality Date AV FISTULA PLACEMENT Left 08/07/2022 COLONOSCOPY N/A 01/25/2024 Performed by Chrissy Gilman MD at [facility]OSCOPY IR CVC TUNNELED DIALYSIS CATHETER PLACEMENT 02/27/2022 IR CVC TUNNELED CATHETER PLACEMENT 02/27/[address] [facility] IR EMBOLIZATION 01/24/2024 IR EMBOLIZATION 01/24/[address] [facility] Narlarry Apoorva Navarro [place] 74 y.o. female presents with the following [...] Medications - No data to display The mrb engineer revealed sinus rhythm as interpreted by me. The mrb engineer was ordered secondary to the patient's history [...] PM PATIENT REFERRED TO: Roxie Spain [address] [place] [address] Schedule an appointment as soon as [...] 07/17/2024 10:26 PM EDT Emergency Department Encounter [facility] EM[facility]GENCY [facility]PT Patient: Apoorva Gonzalez : 1950 [...] Sanchez DO 07/17/242042 documented in this encounter [facility] 07-17-2024 Hospital Discharge instructions Victor Manuel Kowalski DO - 07/17/2024 8:39 PM EDT Please attend your previously scheduled session for dialysis tomorrow in addition to and this coming Wednesday. Please follow-up with your primary physician or if you do not have a PCP, with the [facility], in 1 week. Please return to the emergency department for any new or worsening symptoms as we discussed. documented in this encounter [facility] 07-17-2024 Emergency department Note This RN is taking over care of this patient at this time. Per Previous shift RN;s patient is at dialysis and will return to ED when dialysis is complete. [facility] 07-17-2024 Nurse Note Patient Name: Apoorva Gonzalez Patient : 1950 Acct: [id number] Date of Admission: 07/17/2024 Room/Bed: [facility] Code Status: Prior Allergies: No Known [...] (0) 3 Regular None (Room air) Clear [place] Warm;Dry;No swelling Soft Active 07/17/242000 Alert (0) 3 Regular None (Room air) Clear [place] -- -- -- Labs Lab Results Component [...] - Before each treatment: Dialysis Machine No.: [id number] RO Machine Number: [id number] Dialyzer Lot No.: [id number] Tubing Lot Number: [id number] All Connections Secure: Yes Venous Parameters Set: Yes Arterial Parameters Set: Yes NS Bag: Yes Saline Line Double Clamped: Yes Dialyzer: Nipro Prime Volume (mL): 200 mL RO Machine Number: [id number] RO Machine Log Sheet Completed: Yes Machine Alarm Self Test: Completed, Passed (07/17/24 1627) Air Foam Detector: Tested, Proper Function, pH Reading Extracorporeal Circuit Tested for Integrity: Yes Machine Conductivity: 13.6 Manual Conductivity: 13.7 Manual Ph: 7 Bleach Test (Neg): Yes Bath Temperature: 36 C (96.8 F) Conductivity Meter Serial #: [id number] Machine Functioning Alarm Free? Yes Dialysis Bath: K+ (Potassium): 2 Ca+ (Calcium): 2.5 Na+ (Sodium): 137 HCO3 (Bicarb): 35 Chlorine Testing - Before each treatment and every 4 hours: Time On: 1727 Time Off: 1942 Treatment Goal: 3L Weight [...] 120 600 Yes pt stable rmv 1557 07/17/24 1943 -- -- -- -- -- -- [...] Explanation Response to Education: Verbalized Understanding T [facility] 07-17-2024 Nurse Note Patient Name: Apoorva Gonzalez Patient : 1950 Acct: [id number] Date of Admission: 07/17/2024 Room/Bed: [facility] Code Status: Prior Allergies: No Known [...] wall suction bedside) Second Clinician Verifying: Matilde Abdi out performed prior to access at 1722. [...] Condition/Temp Abdomen Inspection Bowel Sounds (All Quadrants) 07/17/241719 Alert (0) 3 Regular None (Room air) Clear [place] Warm;Dry;No swelling Soft Active 07/17/242000 Alert (0) 3 Regular None (Room air) Clear [place] -- -- -- Labs Lab Results Component [...] - Before each treatment: Dialysis Machine No.: [id number] Machine Number: [id number] Dialyzer Lot No.: [id number] Tubing Lot Number: [id number] All Connections Secure: Yes Venous Parameters Set: Yes Arterial Parameters Set: Yes NS Bag: Yes Saline Line Double Clamped: Yes Dialyzer: Nipro Prime Volume (mL): 200 mL RO Machine Number: [id number] RO Machine Log Sheet Completed: Yes Machine Alarm Self Test: Completed, Passed (07/17/24 1627) Air Foam Detector: Tested, Proper Function, pH Reading Extracorporeal Circuit Tested for Integrity: Yes Machine Conductivity: 13.6 Manual Conductivity: 13.7 Manual Ph: 7 Bleach Test (Neg): Yes Bath Temperature: 36 C (96.8 F) Conductivity Meter Serial #: [id number] Machine Functioning Alarm Free? Yes Dialysis Bath: [...] 120 600 Yes pt stable rmv 1557 07/17/24 1943 -- -- -- -- -- -- [...] Education: Verbalized Understanding documented in this encounter [facility] 07-17-2024 Emergency department Note Patient taken to dialysis. [facility] 07-17-2024 Emergency department Note Pt went to an open bed that was not assigned to any nurse or medic and transferred pt over. Said they were waiting too long. Bed was moved to the medic desk by this medic. Visually monitoring until a bed opens. [facility] 07-17-2024 Physician Emergency department Note [...] transfusion 02/27/2022 Hypertension Seizure ([facility]) Developed seizure-like activity on 02/24 during hospital admission SURGICAL HISTORY Past Surgical History: Procedure Laterality Date AV FISTULA PLACEMENT Left 08/07/2022 COLONOSCOPY N/A 01/25/2024 Performed by Chrissy Gilman MD at [facility]COPY IR CVC TUNNELED DIALYSIS CATHETER PLACEMENT 02/27/2022 IR CVC TUNNELED CATHETER PLACEMENT 02/27/[address] [facility] IR EMBOLIZATION 01/24/2024 IR EMBOLIZATION 01/24/[address] [facility] CURRENT MEDICATIONS Current Discharge Medication [...] Response: Oriented Best Motor Response: Follows commands Sanborn Coma Scale Score: 14 PHYSICAL EXAM ED [...] transfusion 02/27/2022 Hypertension Seizure ([facility]) Developed seizure-like activity on 02/24 during hospital admission Past Surgical History: Procedure Laterality Date AV FISTULA PLACEMENT Left 08/07/2022 COLONOSCOPY N/A 01/25/2024 Performed by Chrissy Gilman MD at [facility]COPY IR CVC TUNNELED DIALYSIS CATHETER PLACEMENT 02/27/2022 IR CVC TUNNELED CATHETER PLACEMENT 02/27/[address] [facility] IR EMBOLIZATION 01/24/2024 IR EMBOLIZATION 01/24/[address] [facility] Apoorva Navarro [place] 74 y.o. female presents with the following [...] Medications - No data to display The mrb engineer revealed sinus rhythm as interpreted by me. The mrb engineer was ordered secondary to the patient's history [...] PM PATIENT REFERRED TO: Roxie Spain [address] [facility] [place] [address] Schedule an appointment as soon [...] Sanchez DO at 07/17/2024 10:26 PM EDT [facility] 07-17-2024 Physician Emergency department Note [...] [employer] Rivas Sanchez DO 07/17/242042 [facility] Work Phone: 06-29-2024 Hospital Discharge instructions Robson [...] of you today. documented in this encounter [facility] 06-29-2024 Emergency department Note Pt returned from dialysis at this time [facility] 06-29-2024 Emergency department Note Pt [...] Date Chronic kidney disease (CKD) Hemodialysis patient ([facility]) ([facility]) Wednesday, , Wednesday History of blood transfusion 02/27/2022 Hypertension Seizure ([facility]) Developed seizure-like activity on 02/24 during hospital admission SURGICAL HISTORY Past Surgical History: Procedure Laterality Date AV FISTULA PLACEMENT Left 08/07/2022 COLONOSCOPY N/A 01/25/2024 Performed by Chrissy Gilman MD at [facility] IR CVC TUNNELED DIALYSIS CATHETER PLACEMENT 02/27/2022 IR CVC TUNNELED CATHETER PLACEMENT 02/27/[address] [facility] IR EMBOLIZATION 01/24/2024 IR EMBOLIZATION 01/24/[address] [facility] CURRENT MEDICATIONS Previous Medications AMLODIPINE [...] Response: Oriented Best Motor Response: Follows commands Sanborn Coma Scale Score: 15 PHYSICAL EXAM ED [...] acute focal neurological deficit. Normal finger-nose. Normal kurs-ci-kguq. NIHSS 0 Psychiatric: Mood and Affect: Mood [...] Culture. Procedure Abnormality Status --------- ------ Complete Urinalysis[[id number]] Please view results for these tests on [...] Emergency Medicine Provider Kierra Escamilla PA-C 06/29/24 6973 Cosigned by Veronica Abebe MD at 06/29/2024 4:48 PM EDT Emergency Department Encounter [facility] EMERGENCY [facility]PT Patient: Apoorva Gonzalez : 1950 [...] upper or lower extremity drift. Cerebellar (finger-nose, jdok-tm-nlva) normal. Brief ED course/MDM: Patient appears nontoxic. [...] for clarification.) Veronica Abebe MD Acute Care [facility] Veronica Abebe MD 06/29/24 1322 documented in this encounter [facility] 06-29-2024 Nurse Note Patient Name: Apoorva Gonzalez Patient : 1950 Acct: [id number] Date of Admission: 06/29/2024 Room/Bed: Code Status: Prior Allergies: No Known [...] (0) 3 Regular None (Room air) Clear [place] Warm;Dry;No swelling Soft Active 06/29/24 1756 Alert (0) 3 Regular None (Room air) Clear [place] Warm;Dry;No swelling -- -- Labs Lab Results [...] - Before each treatment: Dialysis Machine No.: [id number] RO Machine Number: [id number] Dialyzer Lot No.: [id number] Tubing Lot Number: [id number] All Connections Secure: Yes Venous Parameters Set: Yes Arterial Parameters Set: Yes NS Bag: Yes Saline Line Double Clamped: Yes Dialyzer: Nipro Prime Volume (mL): 200 mL RO Machine Number: [id number] RO Machine Log Sheet Completed: Yes Machine Alarm Self Test: Completed, Passed (1420) (06/29/24 1421) Air Foam Detector: Tested, Proper Function, pH Reading Extracorporeal Circuit Tested for Integrity: Yes Machine Conductivity: 13.8 Manual Conductivity: 13.6 Manual Ph: 7.2 Bleach Test (Neg): Yes Bath Temperature: 36 C (96.8 F) Conductivity Meter Serial #: [id number] Machine Functioning Alarm Free? Yes Dialysis Bath: [...] -- 74 -- -- -- -- 06/29/24 171 110/84 -- -- 89 -- -- -- [...] Tools: Explanation Response to Education: Verbalized Understanding [facility] 06-29-2024 Nurse Note Patient Name: Apoorva Gonzalez Patient : 1950 Acct: [id number] Date of Admission: 06/29/2024 Room/Bed: [facility] Code Status: Prior Allergies: No Known [...] whom: NA Date of Last Dressing Change: [place] [address]?: NA Red [...] (0) 3 Regular None (Room air) Clear [place] Warm;Dry;No swelling Soft Active 06/29/24 1756 Alert (0) 3 Regular None (Room air) Clear [place] Warm;Dry;No swelling -- -- Labs Lab Results [...] - Before each treatment: Dialysis Machine No.: [id number] RO Machine Number: [id number] Dialyzer Lot No.: [id number] Tubing Lot Number: [id number] All Connections Secure: Yes Venous Parameters Set: Yes Arterial Parameters Set: Yes NS Bag: Yes Saline Line Double Clamped: Yes Dialyzer: Nipro Prime Volume (mL): 200 mL RO Machine Number: [id number] RO Machine Log Sheet Completed: Yes Machine Alarm Self Test: Completed, Passed (1420) (06/29/24 1421) Air Foam Detector: Tested, Proper Function, pH Reading Extracorporeal Circuit Tested for Integrity: Yes Machine Conductivity: 13.8 Manual Conductivity: 13.6 Manual Ph: 7.2 Bleach Test (Neg): Yes Bath Temperature: 36 C (96.8 F) Conductivity Meter Serial #: [id number] Machine Functioning Alarm Free? Yes Dialysis Bath: K+ (Potassium): 2 Ca+ (Calcium): 2.5 Na+ (Sodium): 135 HCO3 (Bicarb): 35 Chlorine Testing - Before each treatment and every 4 hours: Time On: 1442 Time Off: 1741 Treatment Goal: 2 Weight Height: 162.6 cm [...] mmHg 90 600 Yes LInes secure rmv 19106/29/24 1715 400 mL/min 0 ml/hr -120 mmHg [...] Education: Verbalized Understanding documented in this encounter [facility] 06-29-2024 Emergency department Note Pt notified that she will go to dialysis between 2-3 pm today. [facility] 06-29-2024 Emergency department Note Report given to CYNTHIA Schulte [facility] 06-29-2024 Physician Emergency department Note [...] 01/25/2024 Performed by Chrissy Gilman MD at [facility]COPY IR CVC TUNNELED DIALYSIS CATHETER PLACEMENT 02/27/2022 IR CVC TUNNELED CATHETER PLACEMENT 02/27/[address] [facility] IR EMBOLIZATION 01/24/2024 IR EMBOLIZATION 01/24/[address] [facility] CURRENT MEDICATIONS Previous Medications AMLODIPINE [...] acute focal neurological deficit. Normal finger-nose. Normal znhk-yp-lwho. NIHSS 0 Psychiatric: Mood and Affect: Mood [...] Culture. Procedure Abnormality Status --------- ------ Complete Urinalysis[[id number]] Please view results for these tests on [...] Abebe MD at 06/29/2024 4:48 PM EDT Yu Rong Phone: 06-29-2024 Physician Emergency department Note Emergency Department Encounter [facility]PT Patient: Apoorva Gonzalez : 1950 [...] upper or lower extremity drift. Cerebellar (finger-nose, cheq-kc-mxou) normal. Brief ED course/MDM: Patient appears nontoxic. [...] [employer] Veronica Abebe MD 06/29/24 1322 [facility] 03-03-2024 Nurse Note Family member here to take patient home, DC papers given to patient, Education completed by mily MARIE but reinforced [facility] 03-03-2024 Nurse Note Family member here to take patient home, DC papers given to patient, Education completed by mily MARIE but reinforced Patient return from dialysis. Alert and oriented. Tele removed and IV Dc'd. States that she called family member for ride home and he is on the way Patient Name: Apoorva Gonzalez Patient : 1950 Acct: [id number] Date of Admission: 03/02/2024 Room[facility]Bed: [facility] B Code Status: Full Code Allergies: No [...] - Before each treatment: Dialysis Machine No.: [id number] RO Machine Number: [id number] Dialyzer Lot No.: [id number] Tubing Lot Number: [id number] All Connections Secure: Yes Venous Parameters Set: Yes Arterial Parameters Set: Yes NS Bag: Yes Saline Line Double Clamped: Yes Dialyzer: Nipro Prime Volume (mL): 200 mL RO Machine Number: [id number] RO Machine Log Sheet Completed: Yes Machine Alarm Self Test: Completed, Passed (1551) (03/03/241553) Air Foam Detector: Tested, Proper Function Extracorporeal Circuit Tested for Integrity: Yes Machine Conductivity: 13.6 Manual Conductivity: 13.7 Machine Ph: 7 Manual Ph: 7 Bleach Test (Neg): Yes Bath Temperature: 36 C (96.8 F) Conductivity Meter Serial #: [id number] Machine Functioning Alarm Free? Yes Dialysis Bath: [...] Name: Apoorva Gonzalez Patient : 1950 Acct: [id number] Date of Admission: 03/02/2024 Room/Bed: [facility] B Code Status: Full Code Allergies: No [...] Primary RN (First Initial, Last Name, Title): 0887 Incapacitated Nurse Education Completed: Yes HBsAg ONLY: [...] (L) 03/02/2024 0510 BUN 58 (H) 03/02/2024 05 CREATININE 11.21 (H) 03/02/2024 0510 CALCIUM 8.8 03/02/2024 0510 PHOS 5.7 (H) 01/25/2024 0003 IV Drips and Rate/Dose Safety - Before each treatment: Dialysis Machine No.: [id number] RO Machine Number: [id number] Dialyzer Lot No.: [id number] Tubing Lot Number: [id number] All Connections Secure: Yes Venous Parameters Set: Yes Arterial Parameters Set: Yes NS Bag: Yes Saline Line Double Clamped: Yes Dialyzer: Nipro Prime Volume (mL): 200 mL RO Machine Number: [id number] RO Machine Log Sheet Completed: Yes Machine Alarm Self Test: Completed, Passed (03/02/24 1030) Air Foam Detector: Tested, Proper Function, pH Reading Extracorporeal Circuit Tested for Integrity: Yes Machine Conductivity: 13.8 Manual Conductivity: 13.6 Machine Ph: 7 Manual Ph: 7 Bleach Test (Neg): Yes Bath Temperature: 36 C (96.8 F) Conductivity Meter Serial #: [id number] Machine Functioning Alarm Free? Yes Dialysis Bath: [...] Education: Verbalized Understanding documented in this encounter [facility] 03-03-2024 Nurse Note Patient return from dialysis. Alert and oriented. Tele removed and IV Dc'd. States that she called family member for ride home and he is on the way [facility] 03-03-2024 Plan of care note [...] 1005 by Rickie Birmingham RN Outcome: Progressing [facility] 03-03-2024 Miscellaneous Notes Problem: Pain [...] Limits Permission given to speak with patient dealer compliance representative/caregiver as indicated: Confirmation of Payer with [...] [facility] Used: [id number] - [place], [place] - [address] Medication Management: Independent Transportation/Shopping: Independent Transportation Mode: Car Needs Assistance with Transportation at Discharge: No (Edward-friend) Meal Preparation: Independent Laundry/Cleaning: Independent Finances/Bill Paying: Independent Communication: Independent Types of Care Services/Equipment Utilized Care Services: (NA) Dialysis Type: Hemo Dialysis Provider Name/Location: [facility] Dialysis Schedule: //WED Transportation to Dialysis: self [...] improved Outcome: Progressing documented in this encounter [facility] 03-03-2024 Nurse Note Patient Name: Apoorva Gonzalez Patient : 1950 Acct: [id number] Date of Admission: 03/02/2024 Room/Bed: [facility] B Code Status: Full Code Allergies: No [...] 1605. Report Received from Primary RN at 4178. Primary RN (First Initial, Last Name, Title): [...] 03/03/2024520 CL 98 03/03/2024 0521 CO2 28 03/03/2024 0521 BUN 42 (H) 03/03/2024520 CREATININE 8.03 (H) 03/03/2024520 CALCIUM 8.3 (L) 03/03/2024520 PHOS 5.7 (H) 01/25/2024 0003 IV Drips and Rate/Dose Safety - Before each treatment: Dialysis Machine No.: [id number] RO Machine Number: [id number] Dialyzer Lot No.: [id number] Tubing Lot Number: [id number] All Connections Secure: Yes Venous Parameters Set: Yes Arterial Parameters Set: Yes NS Bag: Yes Saline Line Double Clamped: Yes Dialyzer: Nipro Prime Volume (mL): 200 mL RO Machine Number: [id number] RO Machine Log Sheet Completed: Yes Machine Alarm Self Test: Completed, Passed (1551) (03/03/24 155) Air Foam Detector: Tested, Proper Function Extracorporeal Circuit Tested for Integrity: Yes Machine Conductivity: 13.6 Manual Conductivity: 13.7 Machine Ph: 7 Manual Ph: 7 Bleach Test (Neg): Yes Bath Temperature: 36 C (96.8 F) Conductivity Meter Serial #: [id number] Machine Functioning Alarm Free? Yes Dialysis Bath: [...] Tools: Demonstration Response to Education: Verbalized Understanding [facility] [employer] 03-03-2024 History of Present illness Narrative [facility] Progress Note Nephrology following for ESRD [...] today anddch home -Please message me through [employer] chat with any questions or concerns. Please message me through [employer] chat with any questions or concerns. Sean Castaneda MD 03/03/2024 1:00 PM [facility] [address], [address] [place] [address] Office: [phone] Hospitalist Progress Note 03/03/2024 9:58 AM Subjective: [...] Low Potassium (Less than 3000 mg/day) @IODETAILS@ @[email or web address]@ Medications: amLODIPine, 10 mg, Oral, Daily atorvastatin, [...] Advance Directive: Full Code Magalys Can MD, [facility] Hospitalist documented in this encounter [facility] 03-03-2024 Note Formatting of this n ote might be different from the original. Care Managment Initial Assessment Date: 03/03/2024 Patient Name: Apoorva Gonzalez : 1950 Patient Information Source of Information: Patient Cognition/Language: WFL - Within Functional Limits Permission given to speak with patient dealer compliance representative/caregiver as indicated: Confirmation of Payer with patient/family: Yes Payer Name: [employer] MED[employer]ARE ADVANTAGE/[employer] MEDICARE [place]: No Confirmation of Primary Care Physician: Confirmed [...] Daily Living Prescription Coverage: Yes Pharmacy Used: [id number] - [place], [place] - [address] Medication Management: Independent Transportation/Shopping: Independent Transportation Mode: Car Needs Assistance with Transportation at Discharge: No (Edward-friend) Meal Preparation: Independent Laundry/Cleaning: Independent Finances/Bill Paying: Independent Communication: Independent Types of Care Services/Equipment Utilized Care Services: (NA) Dialysis Type: Hemo Dialysis Provider Name/Location: [facility] Dialysis Schedule: /WED Transportation to Dialysis: self [...] plan. Nephrology following. HD. Citlali Chu RN [facility] 03-03-2024 Note Formatting of this n ote might be different from the original. Care Managment Initial Assessment Date: 03/03/2024 Patient Name: Apoorva Gonzalez : 1950 Patient Information Source of Information: Patient Cognition/Language: WFL - Within Functional Limits Permission given to speak with patient dealer compliance representative/caregiver as indicated: Confirmation of Payer with [...] Daily Living Prescription Coverage: Yes Pharmacy Used: [id number] - [place], [place] - [address] Medication Management: Independent Transportation/Shopping: Independent Transportation Mode: Car Needs Assistance with Transportation at Discharge: No (Edward-friend) Meal Preparation: Independent Laundry/Cleaning: Independent Finances/Bill Paying: Independent Communication: Independent Types of Care Services/Equipment Utilized Care Services: (NA) Dialysis Type: Hemo Dialysis Provider Name/Location: [facility] Dialysis Schedule: //WED Transportation to Dialysis: self [...] plan. Nephrology following. HD. Citlali Chu RN [facility] 03-03-2024 Plan of care note Problem: [...] monitored and maintained or improved Outcome: Progressing [facility] 03-03-2024 Plan of care note Problem: [...] monitored and maintained or improved Outcome: Progressing [facility] 03-02-2024 Consult note Formatting of th is note is different from the original. [facility] Consult Note Consults HPI Apoorva Gonzalez [...] vomiting. Patient is TTS HD patient at [facility], with Dr. Meza as outpatient press cleaner. Past Medical History: Diagnosis Date Chronic kidney [...] concerns. Sean Castaneda MD 03/02/2024 12:51 PM [facility] [address], [address] [place] [address] Office: [phone] [facility] [employer] 03-02-2024 Consult note Formatting of th is note is different from the original. [facility] Consult Note Consults HPI Apoorva Gonzalez [...] vomiting. Patient is TTS HD patient at [facility], with Dr. Meza as outpatient press cleaner. Past Medical History: Diagnosis Date Chronic kidney disease (CKD) Hemodialysis patient (CMS/HCC) (HCC) Wednesday, , Wednesday History of blood transfusion 02/27/2022 Hypertension Seizure ([facility]) Developed seizure-like activity on 02/24 during [...] on TTS schedule as outpatient -access: COREEN AVG -Stat HD seen on HD [id number] [...] repeat in am Please message me through [employer] chat with any questions or concerns. Sean Castaneda MD 03/02/2024 12:51 PM [facility] [address] [place] [address], [address] [place] [id number] Office: [phone] documented in this encounter [facility] 03-02-2024 Nurse Note Patient Name: Apoorva Gonzalez Patient : 1950 Acct: [id number] Date of Admission: 03/02/2024 Room/Bed: [facility] B Code Status: Full Code Allergies: No [...] Primary RN (First Initial, Last Name, Title): [id number] Incapacitated Nurse Education Completed: Yes HBsAg ONLY: [...] - Before each treatment: Dialysis Machine No.: [id number] Machine Number: [id number] Dialyzer Lot No.: [id number] Tubing Lot Number: [id number] All Connections Secure: Yes Venous Parameters Set: Yes Arterial Parameters Set: Yes NS Bag: Yes Saline Line Double Clamped: Yes Dialyzer: Nipro Prime Volume (mL): 200 mL RO Machine Number: [id number] RO Machine Log Sheet Completed: Yes Machine Alarm Self Test: Completed, Passed (03/02/24 1030) Air Foam Detector: Tested, Proper Function, pH Reading Extracorporeal Circuit Tested for Integrity: Yes Machine Conductivity: 13.8 Manual Conductivity: 13.6 Machine Ph: 7 Manual Ph: 7 Bleach Test (Neg): Yes Bath Temperature: 36 C (96.8 F) Conductivity Meter Serial #: [id number] Machine Functioning Alarm Free? Yes Dialysis Bath: [...] Tools: Explanation Response to Education: Verbalized Understanding [facility] 03-02-2024 History and physical note Attending [...] 01/25/2024 Performed by Chrissy Gilman MD at [facility] IR CVC TUNNELED DIALYSIS CATHETER PLACEMENT 02/27/2022 IR CVC TUNNELED CATHETER PLACEMENT 02/27/[address] [facility] IR EMBOLIZATION 01/24/2024 IR EMBOLIZATION 01/24/[address] [facility] Social History: Social History Socioeconomic [...] CassieMayur Mobile Relation: Grandchild Secondary Emergency Contact: RuggieroEdward Mobile Relation: Significant Other Preferred language: Botswanan Lode Miner Blasting needed? No ADVANCED CARE PLANNING Apoorva Gonzalez : 1950 Primary Care Physician: Roxie Spain The patient and/or family/surrogate voluntarily agreed to participate in ACP services. Patient s cognitive capacity: AAOx3 Code Status: [X] [FULL CODE - Continue all advanced life support: CPR,intubation,invasive procedures] [_] [DNR-CCA - DO NOT do CPR, intubation] [_] [DNR-EMISSIONS ENGINEER - Comfort care only] [_] DNR form [was/was not] signed Total time spent: 5 minutes were spent discussing the patient's resuscitation status, advance care planning, and end of life care, with patient and/or family/surrogate. John Mayes DO [facility] 03-02-2024 History and physical note Attending [...] 01/25/2024 Performed by Chrissy Gilman MD at [facility] IR CVC TUNNELED DIALYSIS CATHETER PLACEMENT 02/27/2022 IR CVC TUNNELED CATHETER PLACEMENT 02/27/[address] [facility] IR EMBOLIZATION 01/24/2024 IR EMBOLIZATION 01/24/[address] [facility] Social History: Social History Socioeconomic [...] Ruggiero Mobile Relation: Significant Other Preferred language: B[place] Lode Miner Blasting needed? No ADVANCED CARE PLANNING Apoorva Gonzalez : 1950 Primary Care Physician: Roxie Spain The patient and/or family/surrogate voluntarily agreed to participate in ACP services. Patient s cognitive capacity: AAOx3 Code Status: [X] [FULL CODE - Continue all advanced life support: CPR,intubation,invasive procedures] [_] [DNR-CCA - DO NOT do CPR, intubation] [_] [DNR-EMISSIONS ENGINEER - Comfort care only] [_] DNR form [was/was not] signed Total time spent: 5 minutes were spent discussing the patient's resuscitation status, advance care planning, and end of life care, with patient and/or family/surrogate. John Mayes DO Division of Hospitalist Medicine [facility] documented in this encounter [facility] 03-02-2024 Plan of care note [...] monitored and maintained or improved Outcome: Progressing [facility] 03-02-2024 Emergency department Note Pt in for transport to the floor. Orders states she can come off tele for transport. [facility] 03-02-2024 Emergency department Note Pt in for transport to the floor. Orders states she can come off tele for transport. Pt BGT was 57. Pt AxOx4. Oral glucose given Report from CYNTHIA Jim Pt 88% on RA in triage. Placed on 2L per [place] Emergency Department Encounter [facility] Patient: Apoorva Gonzalez : 1950 [...] transfusion 02/27/2022 Hypertension Seizure ([facility]) Developed seizure-like activity on 02/24 during hospital admission SURGICAL HISTORY Past Surgical History: Procedure Laterality Date AV FISTULA PLACEMENT Left 08/07/2022 COLONOSCOPY N/A 01/25/2024 Performed by Chrissy Gilman MD at [facility] IR CVC TUNNELED DIALYSIS CATHETER PLACEMENT 02/27/2022 IR CVC TUNNELED CATHETER PLACEMENT 02/27/[address] [facility] IR EMBOLIZATION 01/24/2024 IR EMBOLIZATION 01/24/[address] [facility] CURRENT MEDICATIONS Current Discharge Medication [...] 03/02/24 0351 03/02/24 0351 03/02/24 0351 03/02/24 035 36.2 C (97.1 F) 90 16 (!) 208/97 SpO2 Temp Source Heart Rate Source Patient Position 03/02/24 03503/02/24 0351 03/02/24 0351 03/02/24 0900 (!) 88 [...] Abnormal Glucose 239 (*) Narrative: [facility]formed by: [facility], [address] [place] [address] CLIA ID: [id number] POCT GLUCOSE METER UNSOLICITED RESULTS - Abnormal Glucose 57 (*) Narrative: Performed by: [employer] [facility], [address] [place] [id number] CLIA ID: [id number] TROPONIN, WITH SERIAL REFLEX - Normal TROPONIN [...] - Normal Glucose 88 Narrative: Performed by: [facility], [address] [place] [address] CLIA ID: [id number] POCT GLUCOSE METER UNSOLICITED RESULTS - Normal Glucose 88 Narrative: Performed by: [facility], [address] [place] [address] CLIA ID: [id number] POCT GLUCOSE METER POCT GLUCOSE METER POCT GLUCOSE METER POCT GLUCOSE METER POCT GLUCOSE METER POCT GLUCOSE METER POCT GLUCOSE METER EKG: Sinus rhythm, rate 86, normal axis, MS interval 123, QTc 483, no ST segment elevations or depressions, no evidence of acute ischemia Encounter Date: 03/02/24 ECG 12 lead Result Value Heart Rate 86 QRSD Interval 96 QT Interval 404 QTC Interval 483 P [place] 58 QRS [place] 0 T Wave [place] 51 MS Interval 123 Impression Sinus rhythm Probable left [...] 4:24 PM EST documented in this encounter [facility] 03-02-2024 Emergency department Note Pt BGT was 57. Pt AxOx4. Oral glucose given [facility] 03-02-2024 Emergency department Note Report from CYNTHIA Jim [facility] 03-02-2024 Emergency department Note Pt 88% on RA in triage. Placed on 2L per [place] [facility] 03-02-2024 Physician Emergency department Note Emergency Department Encounter [facility] Patient: Apoorva Gonzalez : 1950 [...] [employer] Marcus Ragland DO 03/02/24 0645 [employer] Phone: 03-02-2024 Physician Emergency department Note EMERGENCY [...] 01/25/2024 Performed by Chrissy Gilman MD at [facility] IR CVC TUNNELED DIALYSIS CATHETER PLACEMENT 02/27/2022 IR CVC TUNNELED CATHETER PLACEMENT 02/27/[address] [facility] IR EMBOLIZATION 01/24/2024 IR EMBOLIZATION 01/24/[address] [facility] CURRENT MEDICATIONS Current Discharge Medication [...] Abnormal Glucose 239 (*) Narrative: Performed by: [facility], [address] [place] [address] CLIA ID: [id number] POCT GLUCOSE METER UNSOLICITED RESULTS - Abnormal Glucose 57 (*) Narrative: Performed by: [facility], [address] [place] [address] CLIA ID: [id number] TROPONIN, WITH SERIAL REFLEX - Normal TROPONIN [...] - Normal Glucose 88 Narrative: Performed by: [facility], [address] [place] [address] CLIA ID: [id number] POCT GLUCOSE METER UNSOLICITED RESULTS - Normal Glucose 88 Narrative: Performed by: [facility], [address] [facility] [address] CLIA ID: [id number] POCT GLUCOSE METER POCT GLUCOSE METER POCT GLUCOSE METER POCT GLUCOSE METER POCT GLUCOSE METER POCT GLUCOSE METER POCT GLUCOSE METER EKG: Sinus rhythm, rate 86, normal axis, MS interval 123, QTc 483, no ST segment elevations or depressions, no evidence of acute ischemia Encounter Date: 03/02/24 ECG 12 lead Result Value Heart Rate 86 QRSD Interval 96 QT Interval 404 QTC Interval 483 P Dallas 58 QRS [place] 0 T Wave [place] 51 MS Interval 123 Impression Sinus rhythm Probable left [...] Ragland DO at 03/02/2024 4:24 PM EST [facility] 02-20-2024 Nurse Note RN reviewed discharge AVS with pt and pt verbalized understanding. Pt ambulated out independently to meet at entrance [facility] 02-20-2024 Nurse Note RN reviewed discharge AVS with pt and pt verbalized understanding. Pt ambulated out independently to meet at entrance documented in this encounter [facility] 02-20-2024 Hospital course Narrative Hospitalist Discharge Summary Apoorva Gonzalez DOB: 1950 Admit date: 02/19/2024 Discharge date: 02/20/2024 [...] Dietary Orders (From admission, onward) Start Ordered 02/19/24 2312 Adult diet Regular; Low Potassium (Less than 3000 mg/day) Diet effective now Question Answer Comment Diet type Regular Potassium restriction: Low Potassium (Less than 3000 mg/day) 02/19/24 2312 Activity: as tolerated Recommended Outpatient Tests: Disposition: [...] MG tablet Recommended Follow-up: Roxie Judit [address] [facility] [address] Schedule an appointment as soon as possible for a visit in 1 week(s) Complexity of Follow up: [] Moderate Complexity: follow up within 7-14 calendar days (99389) [x] Severe Complexity: follow up within 7 calendar days (83564) Follow up Testing, Pending results or Referrals [...] Geoff Gonsales MD Division of Hospitalist Medicine [facility] 02/20/2024, 3:01 PM documented in this encounter [facility] 02-20-2024 History of Present illness Narrative [facility] Progress Note Patient is a 73 [...] including ESRD, HTN, seizure who presented with [facility] Nephrology following for ESRD. ESRD -patient on [...] Ok for Discharge Please message me through [employer] chat with any questions or concerns. Pipe Soto MD 02/20/2024 2:08 PM [facility] [address], [address] [place] [id number] Office: [phone] [facility] Respiratory Care Department Progress Note As [...] of this patient, documented in this encounter [facility] 02-20-2024 Plan of care note [...] other facility with appropriate resources Outcome: Progressing [facility] 02-20-2024 Miscellaneous Notes Problem: Excessive [...] resources Outcome: Progressing documented in this encounter [facility] 02-19-2024 Emergency department Note Patient taken to floor. Respirations even and unlabored. No acute distress noted. AXO x 4 and vitals obtained, stable for tx. [facility] 02-19-2024 Emergency department Note Patient taken to floor. Respirations even and unlabored. No acute distress noted. AXO x 4 and vitals obtained, stable for tx. Report from CYNTHIA Law. Report given to Gertrude MARIE Emergency Department Encounter [facility] Patient: Apoorva Gonzalez : 1950 [...] DO 02/19/24 0533 documented in this encounter [facility] 02-19-2024 Emergency department Note Report from CYNTIHA Law. [facility] 02-19-2024 Emergency department Note Report given to Gertrude MARIE [facility] 02-19-2024 Consult note Associated Order (s): Inpatient consult to Nephrology [facility] Consult Note Inpatient consult to Nephrology [...] transfusion 02/27/2022 Hypertension Seizure ([facility]) Developed seizure-like activity on 02/24 during [...] including ESRD, HTN, seizure who presented with [facility]. Nephrology following for ESRD. ESRD -patient [...] concerns. Pipe Soto MD 02/19/2024 1:38 PM [facility] [address], [address] [place] [address] Office: [phone] [facility] 02-19-2024 Consult note Associated Order (s): Inpatient consult to Nephrology [facility] Consult Note Inpatient consult to Nephrology [...] transfusion 02/27/2022 Hypertension Seizure ([facility]) Developed seizure-like activity on 02/24 during [...] nitroglycerin, 5-200 mcg/min, Last Rate: Stopped (02/19/24 7050) PRN medications PRN medications: acetaminophen OR acetaminophen, [...] HTN, seizure who presented with [facility] Nephrology following for ESRD. ESRD -patient on [...] concerns. Pipe Soto MD 02/19/2024 1:38 PM [facility] [address], [address] [place] [address] Office: [phone] documented in this encounter [facility] 02-19-2024 History and physical note [...] transfusion 02/27/2022 Hypertension Seizure ([facility]) Developed seizure-like activity on 02/24 during hospital admission Past Surgical History: Past Surgical History: Procedure Laterality Date AV FISTULA PLACEMENT Left 08/07/2022 COLONOSCOPY N/A 01/25/2024 Performed by Chrissy Gilman MD at [facility] IR CVC TUNNELED DIALYSIS CATHETER PLACEMENT 02/27/2022 IR CVC TUNNELED CATHETER PLACEMENT 02/27/[address] [facility] IR EMBOLIZATION 01/24/2024 IR EMBOLIZATION 01/24/[address] [facility] Social History: Social History Socioeconomic [...] RuggieroEdward Mobile Relation: Significant Other Preferred language: Bots[place]an Lode Miner Blasting needed? No Secondary Emergency Contact: Mayur Matthews Mobile Relation: Grandchild ADVANCED CARE PLANNING Apoorva Navarro [place] : 1950 Primary Care Physician: Roxie Spain The patient and/or family/surrogate voluntarily agreed to participate in ACP services. Patient s cognitive capacity: alert and oriented Code Status: [x_] [FULL CODE - Continue all advanced life support: CPR,intubation,invasive procedures] [_] [DNR-CCA - DO NOT do CPR, intubation] [_] [DNR-EMISSIONS ENGINEER - Comfort care only] [_] DNR form [...] Radha Kevin DO Division of Hospitalist Medicine [facility] [employer] Work Phone: 02-19-2024 History and physical [...] Ca 8.2 , Hg = 9.2 === / === XR CHEST 1 VIEW Extensive patchy [...] Date Chronic kidney disease (CKD) Hemodialysis patient ([facility]) ([facility]) Wednesday, , Wednesday History of blood transfusion 02/27/2022 Hypertension Seizure ([facility]) Developed seizure-like activity on 02/24 during hospital admission Past Surgical History: Past Surgical History: Procedure Laterality Date AV FISTULA PLACEMENT Left 08/07/2022 COLONOSCOPY N/A 01/25/2024 Performed by Chrissy Gilman MD at [facility] IR CVC TUNNELED DIALYSIS CATHETER PLACEMENT 02/27/2022 IR CVC TUNNELED CATHETER PLACEMENT 02/27/[address] [facility] IR EMBOLIZATION 01/24/2024 IR EMBOLIZATION 01/24/[address] [facility] Social History: Social History Socioeconomic [...] last 72 hours. CARDIAC ENZYMES: Recent Labs 02/19/24 0410 TROPONINI 0.027 Procalcitonin: No results found for: [...] Ruggiero Mobile Relation: Significant Other Preferred language: [place]an Lode Miner Blasting needed? No Secondary Emergency Contact: Mayur Matthews Mobile Relation: Grandchild ADVANCED CARE PLANNING Apoorva Gonzalez : 1950 Primary Care Physician: Roxie Spain The patient and/or family/surrogate voluntarily agreed to participate in ACP services. Patient s cognitive capacity: alert and oriented Code Status: [x_] [FULL CODE - Continue all advanced life support: CPR,intubation,invasive procedures] [_] [DNR-CCA - DO NOT do CPR, intubation] [_] [DNR-EMISSIONS ENGINEER - Comfort care only] [_] DNR form [...] Radha Kevin DO Division of Hospitalist Medicine [facility] documented in this encounter [facility] 02-19-2024 Physician Emergency department Note [...] [employer] Cassie Mace DO 02/19/24 0533 [employer] Phone: 02-12-2024 Emergency department Note EMERGENCY DEPARTMENT [...] otherwise acutely negative except as in the [place]. PAST MEDICAL HISTORY Past Medical History: Diagnosis Date Chronic kidney disease (CKD) Hemodialysis patient (CMS/HCC) (HCC) Wednesday, , Wednesday History of blood transfusion 02/27/2022 Hypertension Seizure ([facility]) Developed seizure-like activity on 02/24 during hospital admission SURGICAL HISTORY Past Surgical History: Procedure Laterality Date AV FISTULA PLACEMENT Left 08/07/2022 COLONOSCOPY N/A 01/25/2024 Performed by Chrissy Gilman MD at [facility] IR CVC TUNNELED DIALYSIS CATHETER PLACEMENT 02/27/2022 IR CVC TUNNELED CATHETER PLACEMENT 02/27/[address] [facility] IR EMBOLIZATION 01/24/2024 IR EMBOLIZATION 01/24/[address] [facility] CURRENT MEDICATIONS Discharge Medication List [...] dc PATIENT REFERRED TO: Roxie Spain [address] [facility] [place] [address] Schedule an appointment as soon as [...] oriented x's 4 documented in this encounter [facility] 02-12-2024 Emergency department Triage note Treated with medication, pt took it this morning and was high. Pt was able to ambulate without difficulty. Alert and oriented x's 4 [facility] 02-12-2024 Physician Emergency department Note [...] otherwise acutely negative except as in the [place]. PAST MEDICAL HISTORY Past Medical History: Diagnosis Date Chronic kidney disease (CKD) Hemodialysis patient (CMS/HCC) (HCC) Wednesday, , Wednesday History of blood transfusion 02/27/2022 Hypertension Seizure (HCC) Developed seizure-like activity on 02/24 during hospital admission SURGICAL HISTORY Past Surgical History: Procedure Laterality Date AV FISTULA PLACEMENT Left 08/07/2022 COLONOSCOPY N/A 01/25/2024 Performed by Chrissy Gilman MD at [facility] IR CVC TUNNELED DIALYSIS CATHETER PLACEMENT 02/27/2022 IR CVC TUNNELED CATHETER PLACEMENT 02/27/[address] [facility] IR EMBOLIZATION 01/24/2024 IR EMBOLIZATION 01/24/[address] [facility] CURRENT MEDICATIONS Discharge Medication List [...] dc PATIENT REFERRED TO: Roxie Spain [address] [facility] [address] Schedule an appointment as soon [...] Medicine Provider Marcus Ragland DO 02/12/24 1448 [facility] 01-25-2024 History of Present illness Narrative [facility] Progress Note Nephrology following for ESRD. [...] on TTS schedule, Please message me through [employer] chat with any questions or concerns. Fabrizio Scott MD 01/25/2024 11:09 PM [facility] [address] [place] [address], [address] [place] [address] Office: [phone] Hospitalist Progress Note 01/25/2024 9:54 AM [phone]: Please page me for patient care issues. [phone]: Please page IMS night Hospitalist for any issues. Subjective: Admit Date: 01/19/2024 PCP: Roxie Spain Room#: Endo Pool/NONE Interval History: 73 y.o. F with a PMHx significant for ESRD on HD (//), HTN, hx seizures (not currently on anti-epileptic therapy) who was [facility] for anemia 2/2 descending colonic bleed. [...] on 02/24 during hospital admission NPO diet @[id number]@ Medications: [Transfer Hold] amLODIPine, 5 mg, Oral, [...] Ruggiero Mobile Relation: Significant Other Preferred language: [place]an Lode Miner Blasting needed? No Secondary Emergency Contact: Deshawn [place] Mobile Relation: Brother Lode Miner Blasting needed? No Advance Directive: Full Code Anticipated Discharge - Date -1021 - Location - Home - Pending the following -pending clinical course, hemoglobin stabilization, Total time spent (which include face to face and non face to face encounters) : 30 minutes Leticia Collier MD,MD Division of Hospitalist Medicine Images from the original note were not included. PHYSICAL THERAPY [facility] Initial Evaluation Name/MRN: Apoorva Gonzalez ([id number]) Evaluation Date: 01/24/2024 Date of : 1950 Admission Date: 01/19/2024 5:28 PM Age: 73 y.o. Room/Bed: [facility] B Discharge Recommendation: Home with assist [...] Date Chronic kidney disease (CKD) Hemodialysis patient ([facility]) ([facility]) Wednesday, , Wednesday History of blood transfusion 02/27/2022 Hypertension Seizure ([facility]) Developed seizure-like activity on 02/24 during [...] Responsibilities: Independent Receives Help From: None Active Elementary Reading Specialist: Yes Prior Level of Function Prior Level [...] of Care supervision is transferred to a [facility] Physical Therapist. Goals and/or treatment plan was established in collaboration with patient/family/other representatives. Cosigned by Rosey Damico PT at 01/24/2024 1:24 PM EDT Hospitalist Progress Note 01/24/2024 8:55 AM [phone]: Please page me for patient care issues. [phone]: Please page IMS night Hospitalist for any issues. Subjective: Admit Date: 01/19/2024 PCP: Roxie Spain Room#: W6-622/W6-622 B Interval History: 73 y.o. F with a PMHx significant for ESRD on HD (T//), HTN, hx seizures (not currently on anti-epileptic therapy) who was initially admitted to the [facility] 01/18 for anemia 2/2 descending colonic bleed. [...] Date Chronic kidney disease (CKD) Hemodialysis patient ([facility]) ([facility]) Wednesday, , Wednesday History of blood transfusion 02/27/2022 Hypertension Seizure ([facility]) Developed seizure-like activity on 02/24 during hospital admission NPO diet @[id number]@ Medications: amLODIPine, 5 mg, Oral, Daily pantoprazole, [...] Ruggiero Mobile Relation: Significant Other Preferred language: B[place]an Lode Miner Blasting needed? No Secondary Emergency Contact: Deshawn Crystal Mobile Relation: Brother Lode Miner Blasting needed? No Advance Directive: Full Code Anticipated Discharge - Date -TBD - Location - Home - Pending the following -pending clinical course, workup, colonoscopy Total time spent (which include face to face and non face to face encounters) : 30 minutes Leticia Collier MD,MD Division of Hospitalist Medicine Images from the original note were not included. OCCUPATIONAL THERAPY [facility] Initial Evaluation Name/MRN: Apoorva Gonzalez ([id number]) Evaluation Date: 01/24/2024 Date of : 1950 Admission Date: 01/19/2024 5:28 PM Age: 73 y.o. Room/Bed: [facility] B Discharge Recommendation: Home with assist [...] Date Chronic kidney disease (CKD) Hemodialysis patient ([facility]/HCC) (HCC) Wednesday, , Wednesday History of blood transfusion 02/27/2022 Hypertension Seizure ([facility]) Developed seizure-like activity on 02/24 during hospital admission Past Surgical History: Past Surgical History: Procedure Laterality Date AV FISTULA PLACEMENT Left 08/07/2022 IR CVC TUNNELED DIALYSIS CATHETER PLACEMENT 02/27/2022 IR CVC TUNNELED CATHETER PLACEMENT 02/27/[address] [facility] SPECIAL PROCEDURES Admission Diagnosis: Patient Active Problem [...] Responsibilities: Independent Receives Help From: None Active Elementary Reading Specialist: Yes Prior Level of Function Prior Level [...] Modified Independent Functional mobility: Modified Independent Patient MS for sit-stand from EOB x 2 attempts. Patient ambulated to commode in bathroom with no device and MS. Patient transferred on/off commode with no grab [...] of Care supervision is transferred to a [facility] Occupational Therapist. Goals and/or treatment plan was established in collaboration with patient/family/other representatives. [facility] Progress Note Nephrology following for ESRD. [...] on TTS schedule, Please message me through [employer]Check chat with any questions or concerns. Sean Castaneda MD 01/23/2024 12:09 PM [facility] [address] [place] [address], [address] [place] [address] Office: [phone] ICU Progress Note Name: Apoorva Gonzalez : 1950(73 y.o.) Date: 01/23/24 Team: MICU Attending: Dr. Schneider Subjective: Hospital Summary: 73 y.o. F with a PMHx significant for ESRD on HD (//), HTN, hx seizures (not currently on anti-epileptic therapy) who was [facility] 01/18 for anemia 2/2 descending colonic bleed. [...] Objective: Last Vitals: BP MAP 153/70 (01/23/24 050) 95 (01/23/24506) Arterial BP MAP 122/49 (01/21/24 0206) Temp 36.9 C (98.4 F) (01/23/24506) Pulse 89 (01/23/24506) Resp 20 (01/23/24506) SpO2 99 % (01/23/24506) [...] Normal [] Scar/Lesion/Mass Inspection of teeth/lips/gums Dentition: []Resighini Teeth []Dentures Lips/Gums: [x]Intact []Lesion Present Mucosa: [x]Macclenny []Moist []Dry Neck: External Appearance Overall Appearance: [...] displayed. ABGs: No results for input(s): "PHART", "TAH8BUT", "PO2ART", "NLT9JNY", "SO2ART", "R8CCDIFT" in the last 72 hours. Lactic Acid: [...] PO DVT Prophylaxis: SCDs Disposition: Transfer to [facility] Cosigned by Ronald Schneider DO at 01/23/2024 6:50 PM EDT Associated attestation - Ronald Schneider DO - 01/23/2024 6:50 PM EDT I have personally performed a euvq-cx-mhep diagnostic evaluation on this patient on date of service 01/23/24. History, labs, imaging studies, and electronic medical record have been reviewed by me. This note documented by the []Critical Care Fellow [x]assisted living housekeeper []CRISTO reflects my history, exam, and [...] members and physicians, excluding procedures. [facility] Progress Note Nephrology following for ESRD. Events over night: Doing well-Overnight -HD did well. Patient also received non-urgent HD yesterday afternoon (on // schedule). BP (!) 164/69 Pulse 87 Temp [...] today did well Please message me through GutCheck chat with any questions or concerns. Sean Castaneda MD 01/22/2024 4:22 PM [facility] [address] [place] [address], [address] [place] [address] Office: [phone] ICU Transfer Checklist Transfer Med Reconciliation (resume home meds if able, convert to PO if able) Complete Antibiotics (name, indication, duration, convert to PO if able) None Steroid (indication, duration, convert to PO if able) None Anticipated [place] Medications (ICU initiated) or Dose Changes and [...] therapy) who was initially [facility] the [facility] 01/18 for anemia 2/2 descending colonic bleed. [...] (01/21/24 0206) Temp 36.8 C (98.3 F) (01/22/24911) Pulse 84 (01/22/24 1000) Resp 25 (01/22/24911) SpO2 100 % (01/22/24 1000) Weight 53.1 [...] Normal [] Scar/Lesion/Mass Inspection of teeth/lips/gums Dentition: []Resighini Teeth []Dentures Lips/Gums: [x]Intact []Lesion Present Mucosa: [x]Macclenny []Moist []Dry Neck: External Appearance Overall Appearance: [...] PHOS 6.4* 6.4* 5.5* LFTs: Recent Labs 01/19/24 1747 AST 23 ALT 14 PROT 7.0 ALBUMIN 4.0 BILITOT 0.5 ALKPHOS 88 Glucose: Recent Labs 01/19/24 1747 01/20/24 0348 01/21/24 0036 01/22/24 0010 GLUCOSE 146* 116* 85 78 Procal: No results for input(s): "PROCAL" in the last 72 hours. CBC: Recent Labs 01/20/24 0348 01/20/24 0958 01/21/24 0036 01/21/24 0058 01/21/24 [...] displayed. ABGs: No results for input(s): "PHART", "LFR1VFW", "PO2ART", "LEV7LTS", "SO2ART", "U3MYREUQ" in the last 72 hours. Lactic Acid: No results for input(s): "LACTATE" in the last 72 hours. INR: Recent Labs 01/19/248 INR 1.0 Cardiac Injury Profile: Recent Labs [...] PO DVT Prophylaxis: SCDs Disposition: [facility] Cosigned by Ronald Schneider DO at 01/22/2024 1:39 PM EDT Associated attestation - Ronald Schneider DO - 01/22/2024 1:39 PM EDT I have personally performed a llwj-rg-eftj diagnostic evaluation on this patient on date of service 01/22/24. History, labs, imaging studies, and electronic medical record have been reviewed by me. This note documented by the []Critical Care Fellow [x]assisted living housekeeper []CRISTO reflects my history, exam, and [...] members and physicians, excluding procedures. [facility] Progress Note Nephrology following for ESRD. [...] 0618 01/21/24 0058 01/21/24 0036 01/20/24 0958 01/20/2434701/19/24 2349 01/19/24 1747 WBC AUTO 10*3/uL -- [...] schedule, HD tomorrow Please message me through GutCheck chat with any questions or concerns. Sean Castaneda MD 01/21/2024 3:32 PM [facility] [address] [place] [address], [address] [place] [address] Office: [phone] Nutrition Assessment Type and Reason for Visit: [...] loss Fluid Accumulation: No significant fluid accumulation Sap Bw Developer Strength: Not Performed Nutrition Assessment: Pt with PMH including ESRD on HD (T//S), HTN, Hx seizures presented to [facility] ED 01/19/24 due to 10 episodes of [...] (kg): 54.4 kg Total Energy Requirements (kcals/day): 7447-3209 Weight Used for Protein Requirements: Current (1.2-1.4 [...] Weight: (112# on 01/08/23, 110# on 08/09/23) [place] Body Weight (lbs) (Calculated): 120 lbs [place] Body Weight (Kg) (Calculated): 55 kg % [place] Body Weight (Calculated): 95 % BMI (kg/m2) [...] inadequate protein-energy intake as evidenced by BMI (sqotnyrkpiz-uft-ptm) Nutrition Interventions: Food and/or Nutrient Delivery: Continue [...] Nutrition Supplement Maren Warner RD, LD Contact: [phone] or via GutCheck chat ICU Progress Note Name: Apoorva Navarro [place] : 1950(73 y.o.) Date: 01/21/24 Team: MICU [...] index is 19.56 kg/m . I/O: 01/19 700 - 01/20 0659 In: 2244 [I.V.:193] Out: 0 Ventilator: Oxygen Delivery: Invasive Lines [...] Normal [] Scar/Lesion/Mass Inspection of teeth/lips/gums Dentition: []Resighini Teeth []Dentures Lips/Gums: []Intact []Lesion Present Mucosa: []Macclenny []Moist []Dry Neck: External Appearance Overall Appearance: [...] BILITOT 0.5 ALKPHOS 88 Glucose: Recent Labs 01/19/24174601/20/2434701/21/2435 GLUCOSE 146* 116* 85 Procal: No results for input(s): "PROCAL" in the last 72 hours. CBC: Recent Labs 01/19/24174601/19/249 01/20/2434701/20/24 0958 01/21/24 0036 01/21/24 0058 01/21/24 [...] displayed. ABGs: No results for input(s): "PHART", "WIA2ZJD", "PO2ART", "PSK3EPE", "SO2ART", "N6KAUKSN" in the last 72 hours. Lactic Acid: No results for input(s): "LACTATE" in the last 72 hours. INR: Recent Labs 01/19/241757 INR 1.0 Cardiac Injury Profile: Recent Labs 10/16/24 1747 TROPONINI <0.012 Labs in Last 3 [...] follow up / management ESRD on HD (T/Th/S) Nephro following for IP dialysis Fall precautions [...] PM EDT I have personally performed a ijen-vq-urcm diagnostic evaluation on this patient on date of service 01/21/24. History, labs, imaging studies, and electronic medical record have been reviewed by me. This note documented by the []Critical Care Fellow [x]assisted living housekeeper []CRISTO reflects my history, exam, and [...] 73 y.o. female who was admitted to [facility] on 01/18. Pt presented to the [...] 73 y.o. female who was admitted to [facility] on 01/19/2024 for GI bleed. - [...] (T//), HTN, Hx seizures who presented to [facility] ED 01/18 due to 10 episodes of [...] kg/m . I/O: 01/18 07 - 01/19 06 In: 430 Out: - Ventilator: Oxygen Delivery: [...] Normal [] Scar/Lesion/Mass Inspection of teeth/lips/gums Dentition: []Resighini Teeth []Dentures Lips/Gums: []Intact []Lesion Present Mucosa: []Macclenny []Moist []Dry Neck: External Appearance Overall Appearance: [...] within last 24 hours- BMP: Recent Labs 01/19/24174601/20/24 0348 NA 135 132* K 4.9 5.3* CL 92* 97* CO2 30 27 BUN 47* 50* CREATININE 7.70* 8.34* CALCIUM 8.7 7.2* MG -- 2.0 PHOS -- 6.4* LFTs: Recent Labs 01/19/241746 AST 23 ALT 14 PROT 7.0 ALBUMIN 4.0 BILITOT 0.5 ALKPHOS 88 Glucose: Recent Labs 01/19/24 1747 01/20/24 0348 GLUCOSE 146* 116* Procal: No results for input(s): "PROCAL" in the last 72 hours. CBC: Recent Labs 01/19/24174601/19/24 2349 01/20/24 0348 01/20/24 0958 WBC 15.9* -- 20.1* -- HGB 7.7* 9.5* 8.5* 7.9* HCT 24.4* 28.4* 24.9* 23.4* PLT 465* -- 285 -- MCV 93.5 -- 89.2 -- RDW 16.7* -- 15.6* -- ABGs: No results for input(s): "PHART", "DWE4BSR", "PO2ART", "PPP7JFS", "SO2ART", "X1BEIPWQ" in the last 72 hours. Lactic Acid: No results for input(s): "LACTATE" in the last 72 hours. INR: Recent Labs 01/19/248 INR 1.0 Cardiac Injury Profile: Recent Labs [...] PM EDT Associated attestation - Ronald Schneider - 01/20/2024 7:36 PM EDT See my [...] --change PO keppra to IV while NPO. ASSOCIATE PARTNER: LILLIE Preferred Method of Communication/Reaching: EPIC. The above physician should be contacted w/ questions/concerns about items being managed by ICU Team. If there are any questions or concerns related to the info in this note please contact the treatment team or the on-call returned telephone equipment appraiser directly. I spent 30 minutes of critical [...] Patient with ESRD who follows with Dr. Mzea. Will change consult to her group. Thank you for considering us for this consult. Signed: Tylor Nelson MD Nephrology [facility] ([facility]) Pager: [phone] Office Office documented in this encounter [facility] 01-25-2024 Plan of care note [...] 1006 by Lenka Adkins RN Outcome: Progressing [facility] 01-25-2024 Miscellaneous Notes Problem: Knowledge [...] or other facility with appropriate resources 01/25/2024 171 by Lenka Adkins RN Outcome: [...] Please call the Main Endoscopy Dept at [phone] for questions. [facility] Name: Apoorva Gonzalez Procedure Date: 01/25/2024 8:33 AM Gender: Female Date of : 1950 Age: 73 Admit Type: Inpatient Note Status: Finalized Endoscopist: Chrissy Gilman MD, [id number] Procedure: Colonoscopy Indications: Rectal bleeding, Acute post [...] immediate complications. Procedure Code(s): --- Professional --- 74593, Colonoscopy, flexible; diagnostic, including collection of specimen(s) by brushing or washing, when performed (separate procedure) --- Technical --- 99630, Colonoscopy, flexible; diagnostic, including collection of specimen(s) [...] or abscess without bleeding CPT copyright 2021 [employer]. All rights reserved. The codes documented in this report are preliminary and upon medical record coder review may be revised to meet current [...] indicated. Primary team and bedside RN notified. Mary MartinezPARK CNP 01/24/2024 1:51 PM Problem: Pain - [...] overnight, iHD per outpatient schedule (T/H/S at [facility]) sheath to be removed and PT/OT evals pending. DCP-home with no anticipated needs. Length of Stay (Days): 2 GMLOS: 4.5 Care Managment Initial Assessment Date: 01/20/2024 Patient Name: Apoorva Gonzalez : 1950 Patient Information Source of Information: Patient Cognition/Language: WFL - Within Functional Limits Permission given to speak with patient dealer compliance representative/caregiver as indicated: Yes Confirmation of Payer with patient/family: Yes Payer Name: [employer] [place]: No Confirmation of Primary Care Physician: Confirmed [...] prescription coverage, drives self to HD at [facility], will have a ride home and denies discharge needs. Christine Ribeiro RN documented in this encounter [facility] 01-25-2024 Hospital Discharge instructions Leticia Collier MD - 01/25/2024 5:14 PM EDT No nsaids,no seeds, avoid constipation Leticia Collier MD - 01/25/2024 5:03 PM EDT Up as able Leticia Collier MD - 01/25/2024 5:03 PM EDT Soft diet documented in this encounter [facility] 01-25-2024 Hospital course Narrative Discharge [...] therapy) who was [facility]/18 for anemia 2/2 descending colonic bleed. [...] These medications were sent to [id number] - [place], [place] - [address] [facility] [address] polyethylene glycol (PEG) 3350 17 g packet DIET: Adult diet Dysphagia - Soft and Bite Sized; Low Potassium (Less than 3000 mg/day) ACTIVITY: No restriction. COMPLEXITY OF FOLLOW UP: [] Moderate Complexity: follow up within 7-14 calendar days (81171) [] Severe Complexity: follow up within 7 calendar days (24631) FOLLOW UP TESTING, PENDING RESULTS OR REFERRALS AT TRANSITIONAL CARE VISIT: [] Yes [] No PENDING STUDIES: DISPOSITION: Home FACILITY/HOME CARE AGENCY NAME: Follow up with Roxie [facility] [address] [facility] [id number] Follow up cbc in 2 days [...] 01/25/2024, 5:06 PM documented in this encounter [facility] 01-25-2024 Nurse Note Patient Name: Apoorva Gonzalez Patient : 1950 Acct: [id number] Date of Admission: 01/19/2024 Room/Bed: [facility] B Code Status: Full Code Allergies: [...] - Before each treatment: Dialysis Machine No.: [id number] RO Machine Number: [id number] Dialyzer Lot No.: [id number] Tubing Lot Number: [id number] All Connections Secure: Yes Venous Parameters Set: Yes Arterial Parameters Set: Yes NS Bag: Yes Saline Line Double Clamped: Yes Dialyzer: Nipro Prime Volume (mL): 200 mL RO Machine Number: [id number] RO Machine Log Sheet Completed: Yes Machine Alarm Self Test: Completed, Passed (1250) (01/25/24 1254) Air Foam Detector: Tested, Proper Function, pH Reading Extracorporeal Circuit Tested for Integrity: Yes Machine Conductivity: 13.6 Manual Conductivity: 13.6 Machine Ph: 7 Manual Ph: 7.4 Bleach Test (Neg): Yes Bath Temperature: 36 C (96.8 F) Conductivity Meter Serial #: [id number] Machine Functioning Alarm Free? Yes Dialysis Bath: K+ (Potassium): 2 Ca+ (Calcium): 2.5 Na+ (Sodium): 137 HCO3 (Bicarb): 32 Bicarbonate Concentrate Lot No.: [id number] Acid Concentrate Lot No.: [id number] Chlorine Testing - Before each treatment and [...] Primary RN (First Initial, Last Name, Title): A LUCILLE RN Education Person Educated: Patient Knowledge Base: Substantial Barriers to Learning?: None Preferred method of Learning: Oral Topic(s): call light, Access Care, Signs and Symptoms of Infection, Fluid Management, and Procedural Teaching Tools: Explanation Response to Education: Verbalized Understanding [facility] 01-25-2024 Nurse Note Patient Name: Apoorva Gonzalez Patient : 1950 Acct: [id number] Date of Admission: 01/19/2024 Room/Bed: [facility] B Code Status: Full Code Allergies: [...] - Before each treatment: Dialysis Machine No.: [id number] RO Machine Number: [id number] Dialyzer Lot No.: [id number] Tubing Lot Number: [id number] All Connections Secure: Yes Venous Parameters Set: Yes Arterial Parameters Set: Yes NS Bag: Yes Saline Line Double Clamped: Yes Dialyzer: Nipro Prime Volume (mL): 200 mL RO Machine Number: [id number] RO Machine Log Sheet Completed: Yes Machine Alarm Self Test: Completed, Passed (1250) (01/25/24 1254) Air Foam Detector: Tested, Proper Function, pH Reading Extracorporeal Circuit Tested for Integrity: Yes Machine Conductivity: 13.6 Manual Conductivity: 13.6 Machine Ph: 7 Manual Ph: 7.4 Bleach Test (Neg): Yes Bath Temperature: 36 C (96.8 F) Conductivity Meter Serial #: [id number] Machine Functioning Alarm Free? Yes Dialysis Bath: K+ (Potassium): 2 Ca+ (Calcium): 2.5 Na+ (Sodium): 137 HCO3 (Bicarb): 32 Bicarbonate Concentrate Lot No.: [id number] Acid Concentrate Lot No.: [id number] Chlorine Testing - Before each treatment and [...] -- -- 91 % -- -- 01/24/24 171 -- -- -- 94 (!) 11 -- -- -- 01/24/24 1710 158/75 -- -- 95 (!) 10 100 % -- -- 01/24/24 170 156/65 -- -- 97 12 100 % [...] Education: Verbalized Understanding Patient arrived from room [facility], Dr. Suárez in to speak with [...] with any questions. Radha Lopes RN, CN Patient Name: Apoorva Gonzalez Patient : 1950 Acct: [id number] Date of Admission: 01/19/2024 [facility] A Code Status: DNR-CCA Allergies: No [...] (0) 3 Regular None (Room air) Clear [place] Warm;Dry Good Soft;Rounded Active Other (Comment) None [...] CREATININE 7.66 (H) 01/22/20249 CALCIUM 6.7 (L) 01/22/2024 0010 PHOS 5.5 (H) 01/22/2024 0010 IV Drips and Rate/Dose Safety - Before each treatment: Dialysis Machine No.: [id number] RO Machine Number: [id number] Dialyzer Lot No.: [id number] Tubing Lot Number: [id number] All Connections Secure: Yes Venous Parameters Set: Yes Arterial Parameters Set: Yes NS Bag: Yes Saline Line Double Clamped: Yes Dialyzer: Nipro Prime Volume (mL): 200 mL RO Machine Number: [id number] RO Machine Log Sheet Completed: Yes Machine Alarm Self Test: Completed, Passed (01/22/24 153) Air Foam Detector: pH Reading Extracorporeal Circuit Tested for Integrity: Yes Machine Conductivity: 13.7 Manual Conductivity: 13.8 Machine Ph: 7 Manual Ph: 7.6 Bleach Test (Neg): Yes Bath Temperature: 36 C (96.8 F) Conductivity Meter Serial #: [id number] Machine Functioning Alarm Free? Yes Dialysis Bath: K+ (Potassium): 2 Ca+ (Calcium): 2.5 Na+ (Sodium): 137 HCO3 (Bicarb): 32 Bicarbonate Concentrate Lot No.: [id number] Acid Concentrate Lot No.: [id number] Chlorine Testing - Before each treatment and [...] -- -- 89 12 99 % -- 01/21/241999 137/58 36.7 C (98 F) Temporal 89 [...] Name: Apoorva Gonzalez Patient : 1950 Acct: [id number] Date of Admission: 01/19/2024 Room/Bed: T1-126/T1-126 A [...] (0) 3 Regular None (Room air) Clear [place] Warm;Dry;No swelling Soft Active -- -- -- [...] - Before each treatment: Dialysis Machine No.: [id number] RO Machine Number: [id number] Dialyzer Lot No.: [id number] Tubing Lot Number: [id number] All Connections Secure: Yes Venous Parameters Set: Yes Arterial Parameters Set: Yes NS Bag: Yes Saline Line Double Clamped: Yes Dialyzer: Nipro Prime Volume (mL): 200 mL RO Machine Number: [id number] RO Machine Log Sheet Completed: Yes Machine Alarm Self Test: Completed, Passed (144) (01/20/24 144) Air Foam Detector: pH Reading, Proper Function, Tested Extracorporeal Circuit Tested for Integrity: Yes Machine Conductivity: 13.8 Manual Conductivity: 13.7 Machine Ph: 7 Manual Ph: 7 Bleach Test (Neg): Yes Bath Temperature: 36 C (96.8 F) Conductivity Meter Serial #: [id number] Machine Functioning Alarm Free? Yes Dialysis Bath: [...] -- -- 97 12 100 % -- 01/19/240 (!) 153/80 -- -- 98 19 100 [...] vitals (Patient's BP dropped to 66/40 (47), substitute nurse immediately stopped pulling fluid. BP started coming back up. Patient also became nauseated, dizzy, and having abdominal cramping. Dr. Richardson to see patient.) Provider Name: Dr. Richardson Provider Role: Resident Method of Communication: Call Response: En route Notification Time: 1635 Shift Event: Fall Reason for Communication: Abnormal vitals (Patient's BP dropped to 66/40 (47), substitute nurse immediately stopped pulling fluid. BP started coming [...] monitors were placed. documented in this encounter [facility] 01-25-2024 Plan of care note Problem: Problem Interventions Goal: Assess Nutritional Intake Outcome: Progressing Problem: Pain - Adult Goal: Verbalizes/displays adequate comfort level or baseline comfort level Outcome: Progressing Problem: Discharge Planning Goal: Discharge to home or other facility with appropriate resources Outcome: Progressing [facility] 01-25-2024 Note Formatting of this n ote might be different from the original. POST ENDOSCOPY PROCEDURE TRANSFER REPORT Physician: Procedure completed: colonoscopy Specimens obtained: n/a Medications administered: see anesthesia note Findings: see physician's note Complications: n/a Please call the Main Endoscopy Dept at [phone] for questions. Report called to CYNTHIA Og on 6W. [facility] 01-25-2024 Note Formatting of this n ote might be different from the original. POST ENDOSCOPY PROCEDURE TRANSFER REPORT Physician: Procedure completed: colonoscopy Specimens obtained: n/a Medications administered: see anesthesia note Findings: see physician's note Complications: n/a Please call the Main Endoscopy Dept at [phone] for questions. Report called to CYNTHIA Og on 6W. [facility] 01-25-2024 Note Formatting of this n ote might be different from the original. [facility] Patient Name: Apoorva Gonzalez Procedure Date: 01/25/2024 8:33 AM Gender: Female Date of : 1950 Age: 73 Admit Type: Inpatient Note Status: Finalized Endoscopist: Chrissy Gilman MD, [id number] Procedure: Colonoscopy Indications: Rectal bleeding, Acute post [...] with the referring physician. Referring MD: Christiano rGove DO Medicines: Monitored Anesthesia Care Procedure: Pre-Anesthesia [...] immediate complications. Procedure Code(s): --- Professional --- 46057, Colonoscopy, flexible; diagnostic, including collection of specimen(s) by brushing or washing, when performed (separate procedure) --- Technical --- 19514, Colonoscopy, flexible; diagnostic, including collection of specimen(s) [...] or abscess without bleeding CPT copyright 2021 [employer]. All rights reserved. The codes documented in this report are preliminary and upon medical record coder review may be revised to meet current compliance requirements. Chrissy Gilman MD 01/25/2024 10:02:22 AM This report has been signed electronically. Number of Addenda: 0 Note Initiated On: 01/25/2024 8:33 AM [employer] Phone: 01-25-2024 Note Formatting of this n ote might be different from the original. [facility] Patient Name: Apoorva Gonzalez Procedure Date: 01/25/2024 8:33 AM Gender: Female Date of : 1950 Age: 73 Admit Type: Inpatient Note Status: Finalized Endoscopist: Chrissy Gilman MD, [id number] Procedure: Colonoscopy Indications: Rectal bleeding, Acute post [...] immediate complications. Procedure Code(s): --- Professional --- 45668, Colonoscopy, flexible; diagnostic, including collection of specimen(s) by brushing or washing, when performed (separate procedure) --- Technical --- 85212, Colonoscopy, flexible; diagnostic, including collection of specimen(s) [...] or abscess without bleeding CPT copyright 2021 [employer]. All rights reserved. The codes documented in this report are preliminary and upon medical record coder review may be revised to meet current compliance requirements. Chrissy Gilman MD 01/25/2024 10:02:22 AM This report has been signed electronically. Number of Addenda: 0 Note Initiated On: 01/25/2024 8:33 AM [employer] Phone: 01-25-2024 Plan of care note Problem: [...] Goal: Free from fall injury Outcome: Progressing [facility] 01-24-2024 Note Formatting of this n ote might be different from the original. Spoke with Dr Collier-patients admitting team-ordered patient to have 10mg hydralazine q6 for SBP>160 T [facility] 01-24-2024 Note Formatting of this n ote might be different from the original. Spoke with Dr Collier-patients admitting team-ordered patient to have 10mg hydralazine q6 for SBP>160 [facility] 01-24-2024 Note Formatting of this n ote might be different from the original. Dr Glynn paged regarding post procedure BP's. [facility] 01-24-2024 Note Formatting of this n ote might be different from the original. Dr Glynn pagebela regarding post procedure BP's. T [facility] 01-24-2024 Nurse Note Patient arrived from room [facility], Dr. Suárez in to speak with the patient regarding mesenteric embo, consent obtained. Patient was placed supine on exam table prepped and draped in sterile fashion. Telemetry monitors placed, conscious sedation administered. Patient tolerated procedure well. Transfer back to room. [place] 01-24-2024 Note Formatting of this n ote [...] notified. PARK Baker CNP 01/24/2024 1:51 PM DreamNotesT Yu Rong Phone: 01-24-2024 Note Formatting of this n [...] notified. PARK Baker CNP 01/24/2024 1:51 PM DreamNotesT Yu Rong Phone: 01-24-2024 Plan of care note Problem: Pain - Adult Goal: Verbalizes/displays adequate comfort level or baseline comfort level Outcome: Progressing Problem: Safety - Adult Goal: Free from fall injury Outcome: Progressing Problem: Chronic Conditions and Co-morbidities Goal: Patient's chronic conditions and co-morbidity symptoms are monitored and maintained or improved Outcome: Progressing [place] 01-24-2024 Note Formatting of this n ote might be different from the original. Chart reviewed. Patient transferred from ICU to med/surg floor 01/22. +increased bloody bowel movements over night with Hgb 6.4 this AM. Patient received 1U PRBC. Nuclear med bleeding scan today. Current discharge plan is home once medically stable. TCC to continue to follow. [facility] 01-24-2024 Note Formatting of this n ote might be different from the original. Chart reviewed. Patient transferred from ICU to med/surg floor 01/22. +increased bloody bowel movements over night with Hgb 6.4 this AM. Patient received 1U PRBC. Nuclear med bleeding scan today. Current discharge plan is home once medically stable. TCC to continue to follow. [facility] 01-24-2024 Nurse Note Wound Care consulted for Pressure Injury Prevention. Pt's Arnol= 22, pt is no longer at risk. Skin Care Precaution order set in place. Dietitian consult in place. Will continue to follow peripherally. Please voicera or secure chat message with any questions. Radha Lopes RN, CWCN [facility] 01-23-2024 Plan of care note Problem: [...] Interventions Goal: Assess Nutritional Intake Outcome: Progressing [facility] 01-23-2024 Plan of care note Problem: Potential for Compromised Skin Integrity Goal: Skin Integrity is Maintained or Improved Outcome: Progressing Problem: Potential for Compromised Skin Integrity Goal: Nutritional status is improving Outcome: Progressing Problem: Urinary Incontinence Goal: Perineal skin integrity is maintained or improved Outcome: Progressing [facility] 01-23-2024 Consult note Associated Order [...] Date Chronic kidney disease (CKD) Hemodialysis patient ([facility]) ([facility]) History of blood transfusion 02/27/2022 Hypertension Seizure ([facility]) Past Surgical History: Social History Socioeconomic [...] Jo MD at 01/24/2024 11:46 AM EDT [facility] 01-23-2024 Consult note Associated Order [...] Oral, q6h PRN, 650 mg at 01/22/24 0348 OR acetaminophen (Tylenol) suppository 650 mg, 650 [...] Date Chronic kidney disease (CKD) Hemodialysis patient ([facility]/HCC) (HCC) History of blood transfusion 02/27/2022 Hypertension Seizure ([facility]) Past Surgical History: Social History Socioeconomic [...] DTR Dr Kaur Endoscopic Review None on [facility] or Care Everywhere IMPRESSION/RECOMMENDATIONS: Acute normocytic [...] Order(s): IP CONSULT TO NEPHROLOGY [facility] [address] [place], [place] [id number] Consult Note Patient's Name: Apoorva Gonzalez 9:14 AM 01/20/2024 Reason for Consult: ESRD History of Present Ilness: Apoorva Gonzalez is a 73 y.o. female with hx including ESRD, HTN, seizure who presented with blood in stool. Went to IR, but embolization was not done due to no active bleeding, femoral artery sheath was left in place. Patient is TTS HD patient at [facility], with Dr. Meza as outpatient press cleaner. Patient denied SOB. Past Medical History: Diagnosis Date Chronic kidney disease (CKD) Hemodialysis patient (CMS/HCC) (HCC) Wednesday, , Wednesday History of blood transfusion 02/27/2022 Hypertension Seizure (HCC) Developed seizure-like activity on 02/24 during hospital admission Past Surgical History: Procedure Laterality Date AV FISTULA PLACEMENT Left 08/07/2022 IR CVC TUNNELED DIALYSIS CATHETER PLACEMENT 02/27/2022 IR CVC TUNNELED CATHETER PLACEMENT 02/27/[address] [facility] SPECIAL PROCEDURES Family History Problem Relation Name [...] 89.2 PLT 465* -- 285 Recent Labs 01/19/24 1747 01/20/24 0348 NA 135 132* K 4.9 [...] as documented in his note. Please call [phone] or message me through RUNform with any questions or concerns. Images from the original note were not included. Internal Medicine: MICU Initial Consult Name: Apoorva Gonzalez : 1950(73 y.o.) Date: 01/20/24 Attending: Dr. Delgado Subjective: Chief Complaint: Rectal bleeding HPI: Apoorva Gonzalez is a 73 y.o. F with a PMHx significant for ESRD on HD (//), HTN, Hx seizures, who presented to [facility] ED on 01/19/2024 due to 10 episodes [...] Date Chronic kidney disease (CKD) Hemodialysis patient ([facility]/HCC) (HCC) Wednesday, , Wednesday History of blood transfusion 02/27/2022 Hypertension Seizure ([facility]) Developed seizure-like activity on 02/24 during [...] Take 5,000 Units by mouth daily. Historical ProviderMD levETIRAcetam (Keppra) 500 MG tablet Take 1 tablet (500 mg) by mouth daily. 03/02/22 08/26/22 PARK Lipscomb CNP omega-3 (Fish Oil) 1000 MG capsule Take 1,000 mg by mouth daily. Historical ProviderMD Thiamine HCl (vitamin B-1) 250 MG tablet [...] Normal [] Scar/Lesion/Mass Inspection of teeth/lips/gums Dentition: []Resighini Teeth []Dentures Lips/Gums: [x]Intact []Lesion Present Mucosa: [x]Macclenny [x]Moist []Dry Neck: External Appearance Overall Appearance: [...] 16.7* ABGs: No results for input(s): "PHART", "CHZ7JIF", "PO2ART", "BAQ3VIB", "SO2ART", "T3LSDZLD" in the last 72 hours. Lactic Acid: [...] ESRD on iHD, HTN who presented to [facility] ED with complaints of BRBPR. She was [...] family and physicians. documented in this encounter [facility] 01-23-2024 Plan of care note The patient is Moderately Stable - Low risk of patient condition declining or worsening [facility] 01-22-2024 Nurse Note Patient Name: Apoorva Gonzalez Patient : 1950 Acct: [id number] Date of Admission: 01/19/2024 Room/Bed: T1-126/T1-126 A [...] (0) 3 Regular None (Room air) Clear [place]clenny Warm;Dry Good Soft;Rounded Active Other (Comment) None [...] - Before each treatment: Dialysis Machine No.: [id number] Machine Number: [id number] Dialyzer Lot No.: [id number] Tubing Lot Number: [id number] All Connections Secure: Yes Venous Parameters Set: Yes Arterial Parameters Set: Yes NS Bag: Yes Saline Line Double Clamped: Yes Dialyzer: Nipro Prime Volume (mL): 200 mL RO Machine Number: [id number] RO Machine Log Sheet Completed: Yes Machine Alarm Self Test: Completed, Passed (01/22/241536) Air Foam Detector: pH Reading Extracorporeal Circuit Tested for Integrity: Yes Machine Conductivity: 13.7 Manual Conductivity: 13.8 Machine Ph: 7 Manual Ph: 7.6 Bleach Test (Neg): Yes Bath Temperature: 36 C (96.8 F) Conductivity Meter Serial #: [id number] Machine Functioning Alarm Free? Yes Dialysis Bath: K+ (Potassium): 2 Ca+ (Calcium): 2.5 Na+ (Sodium): 137 HCO3 (Bicarb): 32 Bicarbonate Concentrate Lot No.: [id number] Acid Concentrate Lot No.: [id number] Chlorine Testing - Before each treatment and [...] Explanation Response to Education: Verbalized Understanding T [facility] 01-22-2024 Plan of care note [...] Interventions Goal: Assess Nutritional Intake Outcome: Progressing [facility] 01-21-2024 Plan of care note Problem: [...] Interventions Goal: Assess Nutritional Intake Outcome: Progressing [facility] 01-21-2024 Note Formatting of this n ote might be different from the original. Care Management Progress Note Patient remains in CTV ICU with GI bleed/acute blood anemia. VSS, on RA, in NSR on tele, transfused PRBC again overnight, iHD per outpatient schedule (T/H/S at [facility]) sheath to be removed and PT/OT evals pending. DCP-home with no anticipated needs. Length of Stay (Days): 2 GMLOS: 4.5 [facility] 01-21-2024 Note Formatting of this n ote might be different from the original. Care Management Progress Note Patient remains in CTV ICU with GI bleed/acute blood anemia. VSS, on RA, in NSR on tele, transfused PRBC again overnight, iHD per outpatient schedule (T/H/S at [facility]) sheath to be removed and PT/OT evals pending. DCP-home with no anticipated needs. Length of Stay (Days): 2 GMLOS: 4.5 [facility] 01-20-2024 Nurse Note Patient Name: Apoorva Gonzalez Patient : 1950 Acct: [id number] Date of Admission: 01/19/2024 Room/Bed: T1-126/T1-126 A [...] (0) 3 Regular None (Room air) Clear [place]cl[place] Warm;Dry;No swelling Soft Active -- -- -- -- Labs Lab Results Component Value Date/Time WBC 20.1 (H) 01/20/2024 0348 HGB 7.3 (L) 01/20/2024 1509 HCT 21.3 (L) 01/20/2024 1509 PLT 285 01/20/20248 NA 132 (L) 01/20/2024347 K 5.3 (H) 01/20/2024347 CL 97 (L) 01/20/2024347 CO2 27 01/20/2024347 BUN 50 (H) 01/20/2024347 CREATININE 8.34 (H) 01/20/2024347 CALCIUM 7.2 (L) 01/20/2024347 PHOS 6.4 (H) 01/20/2024347 IV Drips and Rate/Dose Safety - Before each treatment: Dialysis Machine No.: [id number] RO Machine Number: [id number] Dialyzer Lot No.: [id number] Tubing Lot Number: [id number] All Connections Secure: Yes Venous Parameters Set: Yes Arterial Parameters Set: Yes NS Bag: Yes Saline Line Double Clamped: Yes Dialyzer: Nipro Prime Volume (mL): 200 mL RO Machine Number: [id number] RO Machine Log Sheet Completed: Yes Machine Alarm Self Test: Completed, Passed (1445) (01/20/24 144) Air Foam Detector: pH Reading, Proper Function, Tested Extracorporeal Circuit Tested for Integrity: Yes Machine Conductivity: 13.8 Manual Conductivity: 13.7 Machine Ph: 7 Manual Ph: 7 Bleach Test (Neg): Yes Bath Temperature: 36 C (96.8 F) Conductivity Meter Serial #: [id number] Machine Functioning Alarm Free? Yes Dialysis Bath: K+ (Potassium): 2 Ca+ (Calcium): 2.5 Na+ (Sodium): 137 HCO3 (Bicarb): 32 Chlorine Testing - Before each treatment and every 4 hours: Time On: 1515 Time Off: 1814 Treatment Goal: 3L Weight [...] vitals (Patient's BP dropped to 66/40 (47), substitute nurse immediately stopped pulling fluid. BP started coming back up. Patient also became nauseated, dizzy, and having abdominal cramping. Dr. Richardson to see patient.) Provider Name: Dr. Richardson Provider Role: Resident Method of Communication: Call Response: En route Notification Time: 1635 Shift Event: Fall Reason for Communication: Abnormal vitals (Patient's BP dropped to 66/40 (47), substitute nurse immediately stopped pulling fluid. BP started coming [...] Tools: Explanation Response to Education: Verbalized Understanding [facility] 01-20-2024 Note Formatting of this n ote might be different from the original. Care Managment Initial Assessment Date: 01/20/2024 Patient Name: Apoorva Gonzalez : 1950 Patient Information Source of Information: Patient Cognition/Language: WFL - Within Functional Limits Permission given to speak with patient dealer compliance representative/caregiver as indicated: Yes Confirmation of Payer [...] prescription coverage, drives self to HD at [facility], will have a ride home and denies discharge needs. Christine Ribeiro RN [facility] 01-20-2024 Note Formatting of this n ote might be different from the original. Care Managment Initial Assessment Date: 01/20/2024 Patient Name: Apoorva Gonzalez : 1950 Patient Information Source of Information: Patient Cognition/Language: WFL - Within Functional Limits Permission given to speak with patient dealer compliance representative/caregiver as indicated: Yes Confirmation of Payer with patient/family: Yes Payer Name: [employer] [place]: No Confirmation of Primary Care Physician: Confirmed [...] prescription coverage, drives self to HD at [facility], will have a ride home and denies discharge needs. Christine Ribeiro RN T [facility] 01-20-2024 Consult note Associated Order (s): IP CONSULT TO NEPHROLOGY [facility] [address] [place], [place] [phone] Consult Note Patient's Name: Apoorva Gonzalez 9:14 AM 01/20/2024 Reason for Consult: ESRD History of Present Ilness: Apoorva Gonzalez is a 73 y.o. female with hx including ESRD, HTN, seizure who presented with blood in stool. Went to IR, but embolization was not done due to no active bleeding, femoral artery sheath was left in place. Patient is TTS HD patient at [facility], with Dr. Meza as outpatient press cleaner. Patient denied SOB. Past Medical History: Diagnosis [...] as documented in his note. Please call [phone] or message me through RUNform with any questions or concerns. [facility] 01-20-2024 Consult note Formatting of [...] (T//S), HTN, Hx seizures, who presented to [facility] ED on 01/19/2024 due to 10 episodes [...] transfusion 02/27/2022 Hypertension Seizure ([facility]) Developed seizure-like activity on 02/24 during [...] by mouth daily. 03/02/22 08/26/22 Evan Joshua, DISTRICT COMM[employer]CIAL SUPERINTENDENT - INSTRUMENT ASSEMBLER omega-3 (Fish Oil) 1000 MG capsule Take [...] Normal [] Scar/Lesion/Mass Inspection of teeth/lips/gums Dentition: []Resighini Teeth []Dentures Lips/Gums: [x]Intact []Lesion Present Mucosa: [x]Macclenny [x]Moist []Dry Neck: External Appearance Overall Appearance: [...] CREATININE 7.70* CALCIUM 8.7 LFTs: Recent Labs 01/19/247 AST 23 ALT 14 PROT 7.0 ALBUMIN 4.0 BILITOT 0.5 ALKPHOS 88 Glucose: Recent Labs 01/19/24 1747 GLUCOSE 146* Procal: No results for input(s): "PROCAL" in the last 72 hours. CBC: Recent Labs 01/19/24 1747 WBC 15.9* HGB 7.7* HCT 24.4* PLT 465* MCV 93.5 RDW 16.7* ABGs: No results for input(s): "PHART", "YYP4GXV", "PO2ART", "LUS0KHE", "SO2ART", "R1RMCNRP" in the last 72 hours. Lactic Acid: [...] ESRD on iHD, HTN who presented to [facility] ED with complaints of BRBPR. She was [...] other team members, patient's family and physicians. [facility] Work Phone: 01-19-2024 Nurse Note Patient tolerated the procedure well. Transfer to [facility] following the procedure. [facility] 01-19-2024 History and physical note Attending History [...] RDW 16.7* PLT 465* BMP: Recent Labs 01/19/241746 NA 135 K 4.9 CL 92* CO2 [...] DO Division of Hospitalist Medicine Inpatient Medical Services/[facility] Yu Rong Phone: 01-19-2024 History and physical note Attending [...] RDW 16.7* PLT 465* BMP: Recent Labs 01/19/241746 NA 135 K 4.9 CL 92* CO2 [...] DO Division of Hospitalist Medicine Inpatient Medical Services/[facility] documented in this encounter [facility] 01-19-2024 Nurse Note Patient arrived from the emergency department for mesenteric angiogram with possible intervention. Dr. Andrade in to speak with the patient regarding the procedure, and consent was obtained. Patient's lab values and allergies were reviewed. Patient was placed supine on exam table, prepped and draped in sterile fashion. Telemetry monitors were placed. [facility] 01-19-2024 Emergency department Note Patient in no apparent distress. Respirations equal and nonlabored. Lala Ni RN 01/19/244 [facility] 01-19-2024 Emergency department Note Patient [...] ED provider notified Tyra Garcia RN 01/19/24 145 EMERGENCY DEPARTMENT ENCOUNTER Pt Name: Apoorva Gonzalez [...] Response: Oriented Best Motor Response: Follows commands Sanborn Coma Scale Score: 15 PHYSICAL EXAM ED [...] AND HEMATOCRIT, BLOOD PREPARE RBC PRODUCT CODE G7170X60 Unit Number [id number] Unit ABO O Unit RH POS Crossmatch interpretation COMP Dispense Status Transfused Blood Expiration Date Product Blood Type 5100 Unit Volume 300 PRODUCT CODE [id number] Unit Number [id number] Unit ABO O Unit RH POS Crossmatch [...] Kaur DO 01/19/242127 Brown Kaur DO 01/19/249 documented in this encounter [facility] 01-19-2024 Emergency department Note Patient in IR at this time. Lala Ni RN 01/19/242209 [facility] 01-19-2024 Emergency department Note Patients 15 minute samra for vitals not documented as patient was being transported to IR. Lala Ni RN 01/19/242209 [facility] 01-19-2024 Emergency department Note Second unit of blood started at 600 mLs/hr per Dr Kaur. Pt being transported to IR by CYNTHIA Reeves. Olivia Rodgers RN 01/19/242150 [facility] 01-19-[address] Kaur called IR to do procedure. Blood transfusion going at 300 mLs an hour per Dr Kaur. Pt changed up again and large clots and blood noted. Olivia Rodgers RN 01/19/242126 [facility] 01-19-2024 Emergency department Note Report to Olivia Camejo RN 01/19/24 192 [facility] 01-19-2024 Emergency department Note Pt taken to CT scan. Dr Kaur made aware pt had another large passing of blood clots. Order to be received for blood tranfusion Tameka Camejo RN 01/19/24 1905 [facility] 01-19-2024 Emergency department Note Trauma float at bedside for ultrasound IV Tameka Camejo RN 01/19/24 1808 [facility] 01-19-2024 Emergency department Note Large clots noted from pts rectum. States she has been bleeding and having clots since this morning. Denies being on a blood thinner. Does not have any abd pain but has pressure when having a bowel movement. Provider called to bedside for assessment Tameka Camejo RN 01/19/24 1740 [facility] 01-19-2024 Emergency department Note Patient [...] ED provider notified Tyra Garcia RN 01/19/24 5933 [facility] 01-19-2024 Physician Emergency department Note [...] Date Chronic kidney disease (CKD) Hemodialysis patient ([facility]/HCC) (HCC) Wednesday, , Wednesday History of blood transfusion 02/27/2022 Hypertension Seizure ([facility]) Developed seizure-like activity on 02/24 during hospital admission SURGICAL HISTORY Past Surgical History: Procedure Laterality Date AV FISTULA PLACEMENT Left 08/07/2022 IR CVC TUNNELED DIALYSIS CATHETER PLACEMENT 02/27/2022 IR CVC TUNNELED CATHETER PLACEMENT 02/27/[address] [facility] SPECIAL PROCEDURES CURRENT MEDICATIONS Previous Medications AMLODIPINE [...] Physically Abused: No Sexually Abused: No SCREENINGS Sanborn Coma Scale Best Eye Response: Spontaneous Best [...] AND HEMATOCRIT, BLOOD PREPARE RBC PRODUCT CODE [id number] Unit Number [id number] Unit ABO O Unit RH POS Crossmatch interpretation COMP Dispense Status Transfused Blood Expiration Date Product Blood Type 5100 Unit Volume 300 PRODUCT CODE [id number] Unit Number [id number] Unit ABO O Unit RH POS Crossmatch [...] DO 01/19/242127 Brown Kaur DO 01/19/24 2319 [facility] 08-09-2023 Emergency department Note Pt remains in dialysis Regi Galdamez RN 08/09/23 1901 [facility] 08-09-2023 Emergency department Note Pt remains in dialysis Regi Galdamez RN 08/09/23 1901 Lab called with potassium 6.1 with no hemolysis, same reported to Dr. Velasquez via secure chat Jenn Adams RN 08/09/23 1650 Pt taken to dialysis Regi Galdamez RN 08/09/23 1638 documented in this encounter [facility] 08-09-2023 Nurse Note Patient Name: Apoorva Gonzalez Patient : 1950 Acct: [id number] Date of Admission: 08/09/2023 Room/Bed: Code Status: [...] 1655. Report Received from Primary RN at 7589. Primary RN (First Initial, Last Name, Title): [...] Results Component Value Date/Time WBC 8.6 03/03/2023 09 HGB 10.6 (L) 03/03/2023938 HCT 32.3 (L) 03/03/2023 09 PLT 351 03/03/2023938 NA 135 08/09/2023 1606 K 6.1 (HH) 08/09/2023 1606 CL 99 08/09/2023 1606 CO2 21 (L) 08/09/2023 1606 BUN 65 (H) 08/09/2023 1606 CREATININE 9.07 (H) 08/09/2023 1606 CALCIUM 9.5 08/09/2023 1606 PHOS 6.9 (H) 08/09/2023 1606 IV Drips and Rate/Dose Safety - Before each treatment: Dialysis Machine No.: [id number] Machine Number: [id number] Dialyzer Lot No.: [id number] Tubing Lot Number: [id number] All Connections Secure: Yes Venous Parameters Set: Yes Arterial Parameters Set: Yes NS Bag: Yes Saline Line Double Clamped: Yes Dialyzer: Revaclear 300 Prime Volume (mL): 200 mL RO Machine Number: [id number] RO Machine Log Sheet Completed: Yes Machine Alarm Self Test: Completed, Passed (08/09/23 1615) Air Foam Detector: Tested, Proper Function, pH Reading Extracorporeal Circuit Tested for Integrity: Yes Machine Conductivity: 13.6 Manual Conductivity: 13.6 Manual Ph: 7 Bleach Test (Neg): Yes Bath Temperature: 36 C (96.8 F) Conductivity Meter Serial #: [id number] Machine Functioning Alarm Free? Yes Dialysis Bath: K+ (Potassium): 2 Ca+ (Calcium): 2.5 Na+ (Sodium): 137 HCO3 (Bicarb): 32 Chlorine Testing - Before each treatment and every 4 hours: Time On: 1701 Time Off: 2001 Treatment Goal: 2L (per pt request, states she is only able to handle 2L fluid removal) Weight Height: 162.6 cm (5' 4") (08/09/23 154) Weight: 49.9 kg (110 lb) [...] Yes Pt alert stable. Pt on phone, v[place] [id number] -- -- -- -- -- -- [...] -- 92 16 96 % -- -- 08/09/235 121/69 -- -- 91 -- -- -- -- 08/09/23 1931 91/55 -- -- 86 -- -- -- -- 08/09/231914 (!) 151/74 -- -- 90 -- -- -- -- 08/09/23 190 138/78 -- -- 91 -- -- -- -- 08/09/23 1845 134/72 -- -- 98 -- -- -- -- 08/09/23 1833 (!) 152/77 -- -- 94 -- -- -- -- 08/09/23 181 (!) 157/74 -- -- 93 -- -- [...] Tools: Demonstration Response to Education: Verbalized Understanding [facility] 08-09-2023 Nurse Note Patient Name: Apoorva Gonzalez Patient : 1950 Acct: [id number] Date of Admission: 08/09/2023 Room/Bed: Code Status: [...] - Before each treatment: Dialysis Machine No.: [id number] RO Machine Number: [id number] Dialyzer Lot No.: [id number] Tubing Lot Number: [id number] All Connections Secure: Yes Venous Parameters Set: Yes Arterial Parameters Set: Yes NS Bag: Yes Saline Line Double Clamped: Yes Dialyzer: Revaclear 300 Prime Volume (mL): 200 mL RO Machine Number: [id number] RO Machine Log Sheet Completed: Yes Machine Alarm Self Test: Completed, Passed (08/09/231614) Air Foam Detector: Tested, Proper Function, pH Reading Extracorporeal Circuit Tested for Integrity: Yes Machine Conductivity: 13.6 Manual Conductivity: 13.6 Manual Ph: 7 Bleach Test (Neg): Yes Bath Temperature: 36 C (96.8 F) Conductivity Meter Serial #: [id number] Machine Functioning Alarm Free? Yes Dialysis Bath: K+ (Potassium): 2 Ca+ (Calcium): 2.5 Na+ (Sodium): 137 HCO3 (Bicarb): 32 Chlorine Testing - Before each treatment and every 4 hours: Time On: 1701 Time Off: 2001 Treatment Goal: 2L (per pt request, states she is only able to handle 2L fluid removal) Weight Height: 162.6 cm (5' 4") (08/09/231542) Weight: 49.9 kg (110 lb) (08/09/23 154) [...] Education: Verbalized Understanding documented in this encounter [facility] 08-09-2023 Emergency department Note Lab called with potassium 6.1 with no hemolysis, same reported to Dr. Velasquez via secure chat Jenn Adams RN 08/09/23 1650 [facility] 08-09-2023 Emergency department Note Pt taken to dialysis Regi Galdamez RN 08/09/23 1638 [facility] 08-09-2023 Consult note Formatting of th is note is different from the original. [facility] [address] [place] [address] Consult Note Patient's Name: Apoorva Gonzalez 4:37 PM 08/09/2023 History of Present Ilness: Apoorva Gonzalez is a 73 y.o. female with hx including ESRD, [facility] Dr. Meza is outpatient press cleaner. Was found to have 8.0K on outpatient labwork on 08/06 (likely collected prior to HD that day). Was referred to ER in relation to hyperkalemia. Denied SOB. Past Medical History: Diagnosis Date Chronic kidney disease (CKD) Hemodialysis patient (CMS/HCC) (HCC) Wednesday, , Wednesday History of blood transfusion 02/27/2022 Hypertension Seizure ([facility]) Developed seizure-like activity on 02/24 during hospital admission Past Surgical History: Procedure Laterality Date AV FISTULA PLACEMENT Left 08/07/2022 IR CVC TUNNELED DIALYSIS CATHETER PLACEMENT 02/27/2022 IR CVC TUNNELED CATHETER PLACEMENT 02/27/[address] [facility] Family History Problem Relation Name [...] as documented in his note. Please call [phone] or message me through RUNform with any questions or concerns. [employer] Phone: 08-09-2023 Consult note Formatting of th is note is different from the original. [facility] [address] [place] [address] Consult Note Patient's Name: Apoorva Gonzalez 4:37 PM 08/09/2023 History of Present Ilness: Apoorva Gonzalez is a 73 y.o. female with hx including ESRD, is TTS HD patient at [facility]. Dr. Meza is outpatient press cleaner. Was found to have 8.0K on outpatient [...] as documented in his note. Please call [phone] or message me through RUNform with any questions or concerns. documented in this encounter [facility] 03-03-2023 Emergency department Note Pt discharged to home alert by CRISTO Rocha, Essie Ward, CYNTHIA 03/03/23 1055 [facility] 03-03-2023 Emergency department Note Pt discharged to home alert by Aj, CRISTO, Essie Ward RN 03/03/23 [address] [facility] EMERGENCY DEPT Patient: Apoorva Gonzalez : 1950 [...] dictating provider for clarification) Balta Wang MD [facility] Balta Wang MD 03/03/23 1055 EMERGENCY DEPARTMENT [...] TUNNELED CATHETER PLACEMENT 02/27/[address] [facility] CURRENT MEDICATIONS Discharge Medication List [...] Procedures FINAL IMPRESSION 1. ESRD on hemodialysis ([facility]) ([facility]) DISPOSITION Discharge 03/03/2023 10:40:48 AM PATIENT REFERRED TO: Christiano Grove DO [address] [facility] [id number] DISCHARGE MEDICATIONS: Discharge Medication List as of [...] Angel 03/03/23 1108 documented in this encounter [facility] 03-03-2023 Hospital Discharge instructions FREDI [...] or worsening symptoms. documented in this encounter [facility] 03-03-2023 Physician Emergency department Note Emergency Department Encounter [facility] EMERGENCY DEPT Patient: Apoorva Gonzalez : 1950 [...] for clarification) Balta Wang MD Acute Care [facility] Balta Wang MD 03/03/23 1055 [employer] Phone: 03-03-2023 Physician Emergency department Note EMERGENCY [...] TUNNELED CATHETER PLACEMENT 02/27/[address] [facility] CURRENT MEDICATIONS Discharge Medication List [...] Procedures FINAL IMPRESSION 1. ESRD on hemodialysis ([facility]) ([facility]) DISPOSITION Discharge 03/03/2023 10:40:48 AM PATIENT REFERRED TO: Christiano Grove DO [address] [facility] [address] DISCHARGE MEDICATIONS: Discharge Medication List as of [...] (electronically signed) Emergency Medicine Provider FREDI Del Anegl 03/03/23 1108 [facility] 10-01-2022 Emergency department Note Wound care completed. Ordered treatment completed. Patient discharged without any issues. Patient has a copy dc papers and verbalizes understanding. All questions answered. Nickie Pizarro LPN 10/01/22 1405 [facility] 10-01-2022 Emergency department Note Wound care completed. Ordered treatment completed. Patient discharged without any issues. Patient has a copy dc papers and verbalizes understanding. All questions answered. Nickie Pizarro LPN 10/01/[address] [facility] EM[facility]GENCY DEPT Patient: Apoorva Gonzalez : 1950 [...] transfusion 02/27/2022 Hypertension Seizure ([facility]) Developed seizure-like activity on 02/24 during [...] REFERRED TO: Christiano Grove DO [address] [facility] [address] Schedule an appointment as soon as possible for a visit [facility] EM[facility]ENC[facility] DEPT [address] [place] [phone] Go to If symptoms worsen DISCHARGE [...] Sampson 10/01/22 1345 documented in this encounter [facility] 10-01-2022 Hospital Discharge instructions FREDI Sampson - 10/01/2022 1:44 PM EDT Follow-up your primary care doctor and return to the ER if you experience any worsening symptoms. documented in this encounter [facility] 10-01-2022 Physician Emergency department Note Emergency Department Encounter [facility] EM[facility]GENCY DEPT Patient: Apoorva Gonzalez : 1950 [...] [employer] Mak Hilario MD 10/01/221947 Yu Rong Phone: 10-01-2022 Physician Emergency department Note Images [...] (CKD) Hemodialysis patient (CMS/HCC) ([facility]) Wednesday, , Wednesday History of blood transfusion 02/27/2022 Hypertension Seizure ([facility]) Developed seizure-like activity on 02/24 during hospital admission SURGICAL HISTORY Past Surgical History: Procedure Laterality Date AV FISTULA PLACEMENT Left 08/07/2022 IR CVC TUNNELED DIALYSIS CATHETER PLACEMENT 02/27/2022 IR CVC TUNNELED CATHETER PLACEMENT 02/27/[address] [facility] CURRENT MEDICATIONS Previous Medications AMLODIPINE [...] REFERRED TO: Christiano Grove DO [address] [facility] [id number] Schedule an appointment as soon as possible for a visit [facility] EM[facility]ENC[facility] DEPT [address] [place] [phone] Go to If symptoms worsen DISCHARGE [...] signed) Emergency Medicine Provider FREDI Sampson 10/01/22 4795 [facility] 10-01-2022 Note Formatting of this n ote might be different from the original. nurse Dwain from [facility] called [...] her physician and/or be seen emergency dept. [facility] 10-01-2022 Miscellaneous Notes nurse Dwain from [facility] called [...] seen emergency dept. documented in this encounter [facility] 09-30-2022 Nurse Note Tunneled HD catheter cleansed with betadine and removed from pt RIJ. 14fr x 24cm. Pt followed breathing instructions and tolerated well. Pressure held x10 min. Discharged home with all belongings, steady, independent gait. [facility] 09-30-2022 Nurse Note Tunneled HD catheter cleansed with betadine and removed from pt RIJ. 14fr x 24cm. Pt followed breathing instructions and tolerated well. Pressure held x10 min. Discharged home with all belongings, steady, independent gait. documented in this encounter [facility] 08-07-2022 Hospital Discharge instructions Arthur [...] questions or concerns! documented in this encounter [facility] 08-07-2022 Attending History and physical [...] Source Note - Mary Wilkinson APRN - INSTRUMENT ASSEMBLER - 07/10/2022 12:30 PM EDT Images from the original note were not included. Comprehensive PreSurgical History and Physical ? Name: Apoorva Gonzalez : 1950 (Age-72 y.o.) Date of Service: Pt seen/examined on 07/10/2022 Procedure Information Date/Time: 07/17/22 1130 Procedure: LEFT UPPER EXTREMITY ARTERIOVENOUS GRAFT PLACEMENT (Left) Location: [facility] OR [address] [place] [address] Operating Room Surgeons: Raffy Rojas MD Chief Complaint: Dependence on renal dialysis End stage renal disease History Of Present Illness: 72 y.o. female who we are asked to see/evaluate by Dr. Rojas for pre-operative evaluation prior to above procedure . ? Denies history of MS, CHF, TIA, CVA Past Medical History: Past Medical History: No date: Chronic kidney disease (CKD) No date: Hemodialysis patient ([facility]) ([facility]) Comment: Wednesday, , Wednesday02/27/2022: History of blood transfusion No date: Hypertension No date: Seizure ([facility]) Comment: Developed seizure-like activity on 02/24 during hospital admission Past Surgical History: Past Surgical History: 02/27/2022: IR CVC TUNNELED DIALYSIS CATHETER PLACEMENT Comment: IR CVC TUNNELED CATHETER PLACEMENT 02/27/[address] [facility] Medications Prior to Admission: Prior to Admission medications Medication Sig Start Date End Date Taking? Authorizing Provider amLODIPine (Norvasc) 5 MG tablet Take 1 tablet (5 mg) by mouth daily. Patient taking differently: Take 10 mg by mouth daily. 03/02/22 03/02/23 Yes Evan Joshua APRN - TAMIR calcium acetate [...] 99 % 07/10/22 1253 Labs: Ordered per [facility] protocol Juarez's Simple Cardiac Risk Index: JUAREZ'S [...] Testing Visit Labs Ordered: YES - PER [facility] PROTOCOL Sleep Referral Ordered: NO - NEGATIVE [...] Screen and Sleep Clinic Referral (if appropriate) [facility] Work Phone: 08-07-2022 Note Formatting of this n [...] remained palpable. Raffy Rojas MD Vascular Surgery [facility] 08-07-2022 Note Formatting of this n [...] remained palpable. Raffy Rojas MD Vascular Surgery [facility] 08-07-2022 History and physical note [...] Source Note - Mary Wilkinson APRN - INSTRUMENT ASSEMBLER - 07/10/2022 12:30 PM EDT Images from the original note were not included. Comprehensive PreSurgical History and Physical ? Name: Apoorva Gonzalez : 1950 (Age-72 y.o.) Date of Service: Pt seen/examined on 07/10/2022 Procedure Information Date/Time: 07/17/22 1130 Procedure: LEFT UPPER EXTREMITY ARTERIOVENOUS GRAFT PLACEMENT (Left) Location: [facility] OR Operating Room Surgeons: Raffy Rojas MD Chief Complaint: Dependence on renal dialysis End stage renal disease History Of Present Illness: 72 y.o. female who we are asked to see/evaluate by Dr. Rojas for pre-operative evaluation prior to above procedure . ? Denies history of MS, CHF, TIA, CVA Past Medical History: Past Medical History: No date: Chronic kidney disease (CKD) No date: Hemodialysis patient ([facility]) ([facility]) Comment: Wednesday, , Wednesday02/27/2022: History of blood transfusion No date: Hypertension No date: Seizure ([facility]) Comment: Developed seizure-like activity on 02/24 during hospital admission Past Surgical History: Past Surgical History: 02/27/2022: IR CVC TUNNELED DIALYSIS CATHETER PLACEMENT Comment: IR CVC TUNNELED CATHETER PLACEMENT 02/27/[address] [facility] Medications Prior to Admission: Prior [...] Electronically signed by: Mary Wilkinson APRN - INSTRUMENT ASSEMBLER Date: 07/10/2022 at 1:05 PM PAT Protocol referenced includes: 1. Anesthesia Lab Protocol Orders 2. Perioperative Cardiovascular Risk Assessment 3. Anesthesia Assessment 4. Pain Assessment and Acute Pain Service Consult (if appropriate) 5. Medical Clearance/Consult from Internal Medicine (IMS) 6. Shower/Wash Order (for designated surgeries) 7. KOREY Screen and Sleep Clinic Referral (if appropriate) documented in this encounter [facility] 08-07-2022 Miscellaneous Notes OPERATIVE REPORT DATE OF SERVICE: 08/07/2022 PRE-PROCEDURE DIAGNOSIS: End Stage Renal Disease on Hemodialysis POST-PROCEDURE DIAGNOSIS: As above PROCEDURE PERFORMED: Left upper extremity brachial artery to axillary vein arteriovenous graft placement with 4-7 mm Propaten graft SURGEON: Raffy Rojas MD ASSISTANTS: MAYANK Matthews and Arthur Medrano [...] MD Vascular Surgery documented in this encounter [facility] 07-17-2022 Telephone encounter Note Patient [...] patient. Tevin has put new orders in RUNform due to case number changed and was cancelled. New updated information has been faxed to [employer] . [facility] 07-17-2022 Miscellaneous Notes Patient called [...] patient. Tevin has put new orders in RUNform due to case number changed and was cancelled. New updated information has been faxed to [employer] . SURGERY: LEFT UPPER EXTREMITY AV GRAFT PLACEMENT DATE OF SURGERY: 07/17/22 11:30 PRE TESTIN07/10/2022 12:30 AUTH #: NAN CARDIAC CLEARANCE POST OP OR OV: 08/03/2022 2:00 MEDS TO HOLD: NONE MEDS TO CONTINUE: ALL documented in this encounter [facility] 07-17-2022 Attending History and physical note I was notified the patient had breakfast this morning prior to arrival. Will cancel case for today and reschedule. The office has been notified and will work to reschedule her surgery. Source Note - Mary Wilkinson APRN - INSTRUMENT ASSEMBLER - 07/10/2022 12:30 PM EDT Images from the original note were not included. Comprehensive PreSurgical History and Physical ? Name: Apoorva Gonzalez : 1950 (Age-72 y.o.) Date of Service: Pt seen/examined on 07/10/2022 Procedure Information Date/Time: 07/17/22 1130 Procedure: LEFT UPPER EXTREMITY ARTERIOVENOUS GRAFT PLACEMENT (Left) Location: [address] Operating Room Surgeons: Raffy Rojas MD Chief Complaint: Dependence on renal dialysis End stage renal disease History Of Present Illness: 72 y.o. female who we are asked to see/evaluate by Dr. Rojas for pre-operative evaluation prior to above procedure . ? Denies history of MS, CHF, TIA, CVA Past Medical History: Past Medical History: No date: Chronic kidney disease (CKD) No date: Hemodialysis patient ([facility]) ([facility]) Comment: Wednesday, , Wednesday02/27/2022: History of blood transfusion No date: Hypertension No date: Seizure ([facility]) Comment: Developed seizure-like activity on 02/24 during hospital admission Past Surgical History: Past Surgical History: 02/27/2022: IR CVC TUNNELED DIALYSIS CATHETER PLACEMENT Comment: IR CVC TUNNELED CATHETER PLACEMENT 02/27/[address] [facility] Medications Prior to Admission: Prior [...] has right chest port and dialysis T-- Phos[facility] Venofer Labs ordered 2) Hx seizure [...] Screen and Sleep Clinic Referral (if appropriate) [employer] Work Phone: 07-17-2022 History and physical note [...] UPPER EXTREMITY ARTERIOVENOUS GRAFT PLACEMENT (Left) Location: [facility] OR Operating Room Surgeons: Raffy Rojas MD Chief Complaint: Dependence on renal dialysis End stage renal disease History Of Present Illness: 72 y.o. female who we are asked to see/evaluate by Dr. Rojas for pre-operative evaluation prior to above procedure . ? Denies history of MS, CHF, TIA, CVA Past Medical History: Past Medical History: No date: Chronic kidney disease (CKD) No date: Hemodialysis patient ([facility]) ([facility]) Comment: Wednesday, , Wednesday02/27/2022: History of blood transfusion No date: Hypertension No date: Seizure ([facility]) Comment: Developed seizure-like activity on 02/24 during hospital admission Past Surgical History: Past Surgical History: 02/27/2022: IR CVC TUNNELED DIALYSIS CATHETER PLACEMENT Comment: IR CVC TUNNELED CATHETER PLACEMENT 02/27/[address] [facility] Medications Prior to Admission: Prior [...] Referral (if appropriate) documented in this encounter [facility] 07-17-2022 Note Formatting of this n ote might be different from the original. Pt ate a crab cake and egg at 0530, Dr Rojas notified, unable to do surgery later. Pt advised that her surgery is cancelled for today and to go home and reschedule for another day. Pt advised to not eat anything at all before next surgery. [facility] 07-17-2022 Note Formatting of this n ote might be different from the original. Pt ate a crab cake and egg at 0530, Dr Rojas notified, unable to do surgery later. Pt advised that her surgery is cancelled for today and to go home and reschedule for another day. Pt advised to not eat anything at all before next surgery. [facility] 07-17-2022 Miscellaneous Notes Pt ate a crab cake and egg at 0530, Dr Rojas notified, unable to do surgery later. Pt advised that her surgery is cancelled for today and to go home and reschedule for another day. Pt advised to not eat anything at all before next surgery. documented in this encounter [facility] 07-10-2022 Telephone encounter Note Lab called me with a critical lab K 6.6 Patient has ESRD on HD (T-TH-S) and scheduled for HD tomorrow. Advise for patient to go to HD session tomorrow given her elevated K. No need for ED visit at this time. Maria R Greenwood MD Division of Hospitalist Medicine [employer] [facility] [employer] 7:06 PM 07/10/22 [facility] [employer] Work Phone: 07-10-2022 Miscellaneous Notes Lab called me with a critical lab K 6.6 Patient has ESRD on HD (T-TH-S) and scheduled for HD tomorrow. Advise for patient to go to HD session tomorrow given her elevated K. No need for ED visit at this time. Maria R Greenwood MD Division of Hospitalist Medicine [employer] [facility] [employer] 7:06 PM 07/10/22 documented in this encounter [facility] 07-01-2022 Telephone encounter Note SURGERY: LEFT UPPER EXTREMITY AV GRAFT PLACEMENT DATE OF SURGERY: 07/17/22 11:30 PRE TESTIN07/10/2022 12:30 AUTH #: LUIZA CARDIAC CLEARANCE POST OP OR OV: 08/03/2022 2:00 MEDS TO HOLD: NONE MEDS TO CONTINUE: ALL [facility] 06-24-2022 History of Present illness Narrative [...] difficulty. She had vein mapping performed at [facility]. Past Medical History: Past Medical History: Diagnosis [...] MD Vascular Surgery documented in this encounter [facility] 06-03-2022 Note HNO ID: [id number] Author: RT Austen(Vasiliy) Service: Radiology Author Type: [...] RT Austen(R) June 03, 2022 2:29 PM [facility] 06-03-2022 History of Present illness Narrative Radiology [...] 2022 2:29 PM documented in this encounter [facility] 12-31-2020 Note HNO ID: [id number] Author: Philly Michael RN Service: ? Author [...] least a years time. Phone number provided. [facility] Evaluation note Diagnosis ESRD (end stage renal disease) (HCC)- Primary End stage renal disease documented [facility]* Diagnosis S/P arteriovenous (AV) graft placement- Primary [facility] Diagnosis End stage renal disease (HCC) End stage renal disease [facility] Diagnosis Hematoma- Primary Contusion of unspecified site Bleeding from wound [facility] Diagnosis End stage renal disease (HCC)- Primary End stage renal disease End stage renal disease (HCC) End stage renal disease [facility]* Diagnosis Encounter for screening mammogram for malignant neoplasm of breast [facility] Diagnosis ESRD on hemodialysis (CMS/HCC) (HCC)- Primary [facility]* Diagnosis Hyperkalemia- Primary Hyperpotassemia documented [facility]* Diagnosis End stage renal disease (HCC)- Primary End stage renal disease [facility] Diagnosis Gastrointestinal hemorrhage, unspecified gastrointestinal hemorrhage type- Primary Gastrointestinal hemorrhage, unspecified gastrointestinal hemorrhage type Anemia, unspecified type Anemia Unspecified anemia [facility] Diagnosis Hypertension, unspecified type- Primary [facility] Diagnosis Pulmonary edema, acute (HCC)- Primary Unspecified acute edema of lung Pulmonary edema, acute (HCC) Unspecified acute edema of lung [facility]* Diagnosis Shortness of breath- Primary Shortness of breath Acute pulmonary edema (HCC) Unspecified acute edema of lung Hyperkalemia Hyperpotassemia [facility]* Diagnosis Encounter for screening mammogram for malignant neoplasm of breast [facility]* Diagnosis Myoclonus- Primary Fall, initial encounter Hyperkalemia Hyperpotassemia [facility] Diagnosis Adverse effect of drug, initial encounter- Primary [facility]* Diagnosis Hematoma- Primary Contusion of unspecified site Hematoma Contusion of unspecified site documented in this encounter [facility] Work Phone: Evaluation note* Diagnosis Sepsis, due to unspecified organism, unspecified whether acute organ dysfunction present (HCC)- Primary Sepsis, due to unspecified organism, unspecified whether acute organ dysfunction present (HCC) Altered mental status, unspecified altered mental status type Buttock wound, left, initial encounter Seizures (HCC) Other convulsions ESRD (end stage renal disease) (HCC) End stage renal disease Dialysis patient ([facility]) Renal dialysis status [facility] Diagnosis Wound dehiscence- Primary Disruption of external operation (surgical) wound Wound dehiscence Disruption of external operation (surgical) wound Anemia due to other cause, not classified End stage congestive heart failure (HCC) Seizures (HCC) Other convulsions Pressure ulcer of left buttock, stage 3 (HCC) End stage congestive heart failure (HCC) [facility] Diagnosis End stage congestive heart failure (HCC)- Primary ESRD (end stage renal disease) (HCC) End stage renal disease [facility] Diagnosis Anemia of chronic disease- Primary Anemia of other chronic disease [facility] Diagnosis ESRD (end stage renal disease) on dialysis (HCC)- Primary End stage renal disease [facility]* Diagnosis ESRD (end stage renal disease) on dialysis (HCC)- Primary End stage renal disease [facility] Diagnosis ESRD (end stage renal disease) on dialysis (HCC) End stage renal disease Preop examination Unspecified pre-operative examination [facility]* Diagnosis Fall, initial encounter- Primary Fall, initial encounter Closed head injury, initial encounter Pressure injury of left buttock, stage 3 (HCC) Fall (on)(from) sidewalk curb, initial encounter Moderate malnutrition (CMS/HCC) (HCC) [facility] Diagnosis Transient alteration of awareness- Primary [facility]* Attachments The following attachments cannot be sent through Care Everywhere. * Hyperkalemia (Botswanan) documented in this [facility] Discharge instructions* Attachments The following attachments cannot be sent through Care Everywhere. * High Blood Pressure Discharge Instructions ([place]) documented in this [facility] Discharge instructions* Attachments The following attachments cannot be sent through Care Everywhere. * Anemia of Inflammation (Anemia of Chronic Disease) ([place]) documented in this [facility]* Attachments The following attachments cannot be sent through Care Everywhere. * Preparing for Hemodialysis ([place]) * Hemodialysis ([place]) [facility] Auth/Cert (Routine) Specialty Diagnoses / Procedures Referred By Gustavo jones Referred To Contact Diagnoses Hematoma Fluid Collection Procedures No [place] [address] [address] Department [place] [address] Phone: tel: fax: [place] [phone] [place] [address] Phone: tel: Referral ID Status Reason Start Date Expiration Date Visits Re quested Visits Authorized [id number] 1 1 [facility] Work Phone: Reason for visit Narrative* Imaging (Routine) - Closed Specialty Diagnoses / Procedures Referred By Gustavo jones Referred To Contact Cardiology Diagnoses ESRD (end stage renal disease) on dialysis (HCC) Preop examination Procedures Vascular US vessel map for hemodialysis access arm bilateral Raffy Rojas MD [address] [place] [address] Phone: tel: fax: Referral ID Status Reason Start Date Expiration Date Visits Re quested Visits Authorized [id number] Closed 11/28/2024 11/28/2026 1 1 [facility] Advance Directives No Advanced Directives Records FoundDocuments on File Type Date Recorded Patient Security And Compliance Analyst Expl anation Advance Directives and Living Will Power of Ferry Boat Captain Documents on File Type Date Recorded Patient Security And Compliance Analyst Expl anation Advance Directive(s) 10/25/2019 7:08 AM [...] Documents on File Type Date Recorded Patient Security And Compliance Analyst Expl anation Advance Directives and Livin g Will 10/01/2022 1:19 PM Power of Ferry Boat Captain 10/01/2022 1:19 PM Latest Code Status on File Code Status Date Activated Date Inactivated Comments Full Code 08/07/2022 8:15 AM 08/08/2022 8:14 AM Code Status History Code Status Date Activated Date Inactivated Comments Full Code 07/17/2022 9:55 AM 07/17/2022 12:44 PM Full Code 02/24/2022 5:00 PM 03/02/2022 7:07 PM Documents on File Type Date Recorded Patient Security And Compliance Analyst Expl anation Advance Directives and Livin g Will 10/01/2022 1:19 PM Power of Ferry Boat Captain 10/01/2022 1:19 PM Date Activated Date Inactivated [...] Documents on File Type Date Recorded Patient Security And Compliance Analyst Expl anation DNR (Do Not Resuscitate) 01/26/2024 11:24 AM Advance Directives and Livin g Will 10/01/2022 1:19 PM Power of Ferry Boat Captain 10/01/2022 1:19 PM Date Activated Date Inactivated [...] Healthcare Agent Relationshi p Communication Mayur Matthews [facility] Care Agent Healthcare Agents on File Name Relationship Healthcare Agent Relationshi p Communication Mayur Matthews [facility] Care Agent Healthcare Agents on File Name Relationship Healthcare Agent Relationshi p Communication Mayur Matthews [facility] Health Care Agent Healthcare Agents on File Name Relationship Healthcare Agent Relationshi p Communication Mayur Matthews [facility] Health Care Agent Date Activated Date Inactivated Comments 08/31/2024 12:12 AM Question Answer Comments Plan of Care: Code Status Discussion Completed Decision Maker: Patient Documents on File Type Date Recorded Patient Security And Compliance Analyst Expl anation Power of Ferry Boat Captain 10/24/2024 11:41 AM Power of Ferry Boat Captain 10/24/2024 11:24 AM DNR (Do Not Resuscitate) 01/26/2024 11:24 AM Advance Directives and Living Will 10/01/2022 1:19 PM Power of Ferry Boat Captain 10/01/2022 1:19 PM DNR (Do Not Resuscitate) 11/11/2024 12:26 PM [place] DNR Form Date Activated Date Inactivated Comments [...] Healthcare Agent Relationshi p Communication Deshawn [facility] Agent Documents on File Type Date Recorded Patient Security And Compliance Analyst Expl anation Power of [place]erry Boat Captain 10/24/2024 11:41 AM Power of Ferry Boat Captain 10/24/2024 11:24 AM DNR (Do Not Resuscitate) 01/26/2024 11:24 AM Advance Directives and Living Will 10/01/2022 1:19 PM Power of [place]erry Boat Captain 10/01/2022 1:19 PM DNR (Do Not Resuscitate) 11/15/2024 10:00 AM [place] DNR Form DNR (Do Not Resuscitate) 11/11/2024 12:26 PM [place] DNR Form Date Activated Date Inactivated Comments [...] Healthcare Agent Relationshi p Communication Deshawn Crystal [facility] Care Agent Healthcare Agents on File Name Relationship Healthcare Agent Relationshi p Communication Deshawn Crystal [facility] Care Agent Documents on File Type Date Recorded Patient Security And Compliance Analyst Expl anation Power of [place]erry Boat Captain 10/24/2024 11:24 AM DNR (Do Not Resuscitate) 01/26/2024 11:24 AM Advance Directives and Living Will 10/01/2022 1:19 PM Power of Ferry Boat Captain 10/01/2022 1:19 PM DNR (Do Not Resuscitate) 11/15/2024 10:00 AM [place] DNR Form DNR (Do Not Resuscitate) 11/11/2024 12:26 PM [place] DNR Form Date Activated Date Inactivated Comments [...] Relationship Healthcare Agent Relationshi p Communication Deshawn [facility] Agent Documents on File Type Date Recorded Patient Security And Compliance Analyst Expl anation Power of Ferry Boat Captain 10/24/2024 11:24 AM DNR (Do Not Resuscitate) 01/26/2024 11:24 AM Advance Directives and Living Will 10/01/2022 1:19 PM Power of Ferry Boat Captain 10/01/2022 1:19 PM DNR (Do Not Resuscitate) 11/15/2024 10:00 AM [place] DNR Form DNR (Do Not Resuscitate) 11/11/2024 12:26 PM [place] DNR Form Healthcare Agents on File Name Relationship Healthcare Agent Relationshi p Communication Deshawn Crystal [facility] Care Agent Healthcare Agents on File Name Relationship Healthcare Agent Relationshi p Communication Deshawn Crystal [facility] Care Agent Healthcare Agents on File Name Relationship Healthcare Agent Relationshi p Communication Deshawn [facility] Care Agent Documents on File Type Date Recorded Patient Security And Compliance Analyst Expl anation Power of Ferry Boat Captain 10/24/2024 11:24 AM DNR (Do Not Resuscitate) 01/26/2024 11:24 AM Advance Directives and Living Will 10/01/2022 1:19 PM Power of Ferry Boat Captain 10/01/2022 1:19 PM DNR (Do Not Resuscitate) 12/20/2024 2:49 PM [place] DNR Form DNR (Do Not Resuscitate) 11/15/2024 10:00 AM [place] DNR Form DNR (Do Not Resuscitate) 11/11/2024 12:26 PM [place] DNR Form Date Activated Date Inactivated Comments [...] Name Relationship Healthcare Agent Relationshi p Communication [facility] Care Agent ([place]) Documents on File Type Date Recorded Patient Security And Compliance Analyst Expl anation DNR (Do Not Resuscitate) 12/21/2024 11:18 AM Power of Ferry Boat Captain 10/24/2024 11:24 AM DNR (Do Not Resuscitate) 01/26/2024 11:24 AM Advance Directives and Living Will 10/01/2022 1:19 PM Power of Ferry Boat Captain 10/01/2022 1:19 PM DNR (Do Not Resuscitate) 12/20/2024 2:49 PM [place] DNR Form DNR (Do Not Resuscitate) 11/15/2024 10:00 AM [place] DNR Form DNR (Do Not Resuscitate) 11/11/2024 12:26 PM [place] DNR Form Date Activated Date Inactivated Comments [...] Agents on File Name Relationship Healthcare Agent [facility] p Communication Deshawn Arredondo Health Care Agent Assessments Diagnosis Chronic kidney disease, [...] t Referred To Contact Arthur Medrano MD [address] [place] [address] Referral ID Status Reason Start Date Expiration Date Visits Re quested Visits Authorized [id number] Closed 1 1 Specialty Diagnoses / Procedures Referred By Contac t Referred To Contact Radiology Diagnoses End stage renal disease (HCC) Procedures IR CVC tunneled catheter removal Radha Meza MD [address] [address] Referral ID Status Reason Start Date Expiration Date Visits Re quested Visits Authorized [id number] Closed 09/28/2022 03/27/2023 1 1 Specialty Diagnoses / Procedures Referred By Contac t Referred To Contact Radiology Diagnoses End stage renal disease (HCC) Procedures IR fistulagram Radha Meza MD [address] [address] Referral ID Status Reason Start Date Expiration Date V isits Requested Visits Authorized [id number] Pending Review 06/25/2023 06/24/2024 1 1 Additional Source Comments Source Comments (unrecognize d section and content) In the event this informatio n is protected by the Federal Confidentiality of Alcohol and Drug Abuse Patient Records regulations: The Federal rules restrict any use of the information to criminally investigate or prosecute any alcohol or drug abuse patient.[facility] HospitalIn the event this information is protected by the Federal Confidentiality of Alcohol and Drug Abuse Patient Records regulations: The Federal rules restrict any use of the information to criminally investigate or prosecute any alcohol or drug abuse patient.[facility] HospitalIn the event this information is protected by the Federal Confidentiality of Alcohol and Drug Abuse Patient Records regulations: The Federal rules restrict any use of the information to criminally investigate or prosecute any alcohol or drug abuse patient.[facility] HospitalIn the event this information is protected by the Federal Confidentiality of Alcohol and Drug Abuse Patient Records regulations: The Federal rules restrict any use of the information to criminally investigate or prosecute any alcohol or drug abuse patient.[facility] INFORMATION SOURCE (unrecogn ized section and content) DATE CREATED AUTHOR 11/03/2019 [facility] DATE CREATED AUTHOR AUTHOR'S ORGANIZ ATION 11/29/2020 [facility] [employer] DATE CREATED AUTHOR AUTHOR'S ORGANIZ ATION 09/12/2021 [facility] DATE CREATED AUTHOR AUTHOR'S ORGANIZ ATION 06/05/2022 [facility] DATE CREATED AUTHOR AUTHOR'S ORGANIZ ATION 09/09/2024 [facility] DATE CREATED AUTHOR AUTHOR'S ORGANIZ ATION 09/16/2024 [facility] DATE CREATED AUTHOR AUTHOR'S ORGANIZ ATION 01/11/2025 [facility] DATE CREATED AUTHOR AUTHOR'S ORGANIZ ATION 02/15/2025 [facility] Reason for Visit (unrecogniz ed section and content) Status Reason Specialty Diagnoses / Procedures Referred By Contact Referred To Contact Diagnoses Chronic kidney disease (CKD), stage IV (severe) (HCC) Procedures RENAL BX. PERCUTANEOUS BIOPSY KIDNEY PERCUTANEOUS [place] [facility] [address] [place] [address] Reason Comments New Patient Eval for perm access placement; 06/03/22 Specialty Diagnoses / Procedures Referred By Contac t Referred To Contact Diagnoses Dependence on renal dialysis (HCC) End stage renal disease (HCC) Dependence on renal dialysis (CMS/HCC) (HCC) [Z99.2] End stage renal disease (HCC) [N18.6] Procedures MS CRTJ ARVEN FSTL XCP DIR ARVEN ANAST NONAUTOG GRF LEFT UPPER EXTREMITY ARTERIOVENOUS GRAFT PLACEMENT Raffy Rojas MD [address] [place] [address] [facility] [address] [place] [address] Referral ID Status Reason Start Date Expiration Date Visits Re quested Visits Authorized [id number] 1 1 Reason Onset Date Comments Surgery Scheduling 07/01/2022 Referral ID Status Reason Start Date Expiration Date Visits Re quested Visits Authorized [id number] 1 1 Specialty Diagnoses / Procedures Referred By Contac t Referred To Contact Radiology Diagnoses End stage renal disease (HCC) Procedures IR CVC tunneled catheter removal Radha Meza MD [address] [place] [address] [place] [address] Referral ID Status Reason Start Date Expiration Date Visits Re quested Visits Authorized [id number] Closed 09/28/2022 03/27/2023 1 1 Reason Comments [...] type Procedures k92.2 Gabriel Delgado MD [address] [place] [address] Phone: tel: fax: [facility] Cardiac Thoracic Vascular Intensive Care Unit CTV ICU T1 [address] [place] [address] Phone: tel: Referral ID Status Reason Start Date Expiration Date Visits Re quested Visits Authorized [id number] 1 1 Reason Comments Hypertension Treated with medicat ion, pt took it this morning and was high. Pt was able to ambulate without difficulty. Alert and oriented x's 4 Reason Comments Shortness of Breath Pt arrived SOB, [facility] ed HD today. EMS found pt 50% on RA. Denies chest pain. Pt is T// HD Specialty Diagnoses / Procedures Referred By Contac t Referred To Contact Diagnoses Pulmonary edema, acute (HCC) Procedures . Radha Kevin, [address] [place] [address] Phone: tel: fax: [facility] EMERGENCY DEPT [address] [place] [address] Phone: tel: Referral ID Status Reason Start Date Expiration Date Visits Re quested Visits Authorized [id number] 1 1 Reason Comments Shortness of Breath Patient presents to ED via triage with SOB. Patient states she's missed a couple dialysis tx. Specialty Diagnoses / Procedures Referred By Gustavo jones Referred To Contact Diagnoses Shortness of breath Hyperkalemia Acute pulmonary edema (HCC) Procedures . John Mayes DO [address] [place] [address] Phone: tel: fax: [facility] Cardiac Progressive Care Unit PCU 5W [address] [place] [address] Phone: tel: Referral ID Status Reason Start Date Expiration Date Visits Re quested Visits Authorized [id number] 1 1 Reason Comments Fall Pt presents [...] Comments Altered Mental Status Pt came from [employer]. Squad was called for weakness and altered [...] present (HCC) Procedures .. Loni Zambrano MD [address] [place] [address] Phone: tel: fax: [facility] Intensive Care Unit ICU [address] [place] [address] Phone: tel: Referral ID Status Reason Start Date Expiration Date Visits Re quested Visits Authorized [id number] 1 1 Reason Comments Wound Check EMS from [place] f or bleeding fistula in left upper arm. DC from [facility] to [place] previously. Specialty Diagnoses / Procedures Referred By Contac t Referred To Contact Diagnoses Wound dehiscence Procedures .. Edson Graham MD [address] [place] [address] Phone: tel: fax: [facility] Cardiac Vascular Progressive Care Unit PCC 1C [address] [place] [address] Phone: tel: Referral ID Status Reason Start [...] thinners. Specialty Diagnoses / Procedures Referred By Contmichelle t Referred To Contact Diagnoses Closed head injury, initial encounter Fall, initial encounter Fall (on)(from) sidewalk curb, initial encounter Procedures . Magalys Can MD [address] [place] [address] Phone: tel: fax: [facility] ROSEY [address] [place] [address] Phone: tel: Referral ID Status Reason Start Date Expiration Date Visits Re quested Visits Authorized [id number] 1 1 Reason Comments Altered Mental Status Per [place] Mateo gerber, pt was altered last night. Sent to ED for eval. Pt denies any complaints. Care Teams (unrecognized sec tion and content) Facing End Trimmer Relationship Specialty Start Date End Date Christiano Grove, DO [address] [facility] [address] [place] [phone] PCP - General Family Medicine 10/25/19 Facing End Trimmer Relationship Specialty Start Date End Date Christiano Grove DO [address] [place] [address] PCP - General Family Medicine 10/25/19 Facing End Trimmer Relationship Specialty Start Date End Date Christiano Grove DO [address] [place] [address] PCP - General 09/17/16 Carlos Manuel Wang MD [address] [place] [address] Nephrology 06/24/22 Raffy Rojas MD [address] [place] [address] Consulting Physician Vascular Surgery 06/24/22 [facility] 02/03/22 Facing End Trimmer Relationship Specialty Start Date End Date Christiano Grove DO [address] [place] [address] PCP - General 09/17/16 Carlos Manuel Wang MD [address] [place] [address] Nephrology 06/24/22 Rafyf Rojas MD [address] [place] [address] Consulting Physician Vascular Surgery 06/24/22 [facility] 02/03/22 Facing End Trimmer Relationship Specialty Start Date End Date Christiano Grove DO [address] [place] [address] PCP - General 09/17/16 Carlos Manuel Wang MD [address] [place] [address] Nephrology 06/24/22 Raffy Rojas MD [address] [place] [address] Consulting Physician Vascular Surgery 06/24/22 [facility] 02/03/22 Facing End Trimmer Relationship Specialty Start Date End Date Christiano Grove DO [address] [place] [address] PCP - General 09/17/16 Carlos Manuel Wang MD [address] [place] [address] Nephrology 06/24/22 Raffy Rojas MD [address] [place] [address] Consulting Physician Vascular Surgery 06/24/22 [facility] 02/03/22 Facing End Trimmer Relationship Specialty Start Date End Date Christiano Grove DO [address] [place] [address] PCP - General 09/17/16 Carlos Manuel Wang MD [address] [place] [address] Nephrology 06/24/22 Raffy Rojas MD [address] [place] [address] Consulting Physician Vascular Surgery 06/24/22 [facility] 02/03/22 Facing End Trimmer Relationship Specialty Start Date End Date Christiano Grove DO [address] [place] [address] PCP - General 09/17/16 Carlos Manuel Wang MD [address] [place] [address] Nephrology 06/24/22 Raffy Rojas MD [address] [place] [address] Consulting Physician Vascular Surgery 06/24/22 [facility] 02/03/22 Facing End Trimmer Relationship Specialty Start Date End Date Christiaon Grove DO [address] [place] [address] PCP - General 09/17/16 Carlos Manuel Wang MD [address] [place] [address] Nephrology 06/24/22 Raffy Rojas MD [address] [place] [address] Consulting Physician Vascular Surgery 06/24/22 [facility] 02/03/22 Facing End Trimmer Relationship Specialty Start Date End Date Christiano Grove DO [address] [place] [address] PCP - General 09/17/16 Carlos Manuel Wang MD [address] [place] [address] Nephrology 06/24/22 Raffy Rojas MD [address] [place] [address] Consulting Physician Vascular Surgery 06/24/22 [facility] 02/03/22 Facing End Trimmer Relationship Specialty Start Date End Date Christiano Grove DO [address] [place] [address] PCP - General 09/17/16 Carlos Manuel Wang MD [address] [place] [address] Nephrology 06/24/22 Raffy Rojas MD [address] [place] [address] Consulting Physician Vascular Surgery 06/24/22 [facility] 02/03/22 Facing End Trimmer Relationship Specialty Start Date End Date Christiano Grove DO [address] [place] [address] PCP - General 09/17/16 Carlos Manuel Wang MD [address] [place] [address] Nephrology 06/24/22 Raffy Rojas MD [address] [place] [address] Consulting Physician Vascular Surgery 06/24/22 [facility] 02/03/22 Facing End Trimmer Relationship Specialty Start Date End Date Christiano Grove DO [address] [place] [address] PCP - General 09/17/16 Carlos Manuel Wang MD [address] [place] [address] Nephrology 06/24/22 Raffy Rojas MD [address] [place] [address] Consulting Physician Vascular Surgery 06/24/22 [facility] 02/03/22 Facing End Trimmer Relationship Specialty Start Date End Date Christiano Grove DO [address] [place] [address] PCP - General 09/17/16 Carlos Manuel Wang MD [address] [place] [address] Nephrology 06/24/22 Raffy Rojas MD [address] [place], [place] [phone] Consulting Physician Vascular Surgery 06/24/22 [facility] 02/03/22 Facing End Trimmer Relationship Specialty Start Date End Date Christiano Grove DO [address] [place] [address] PCP - General 09/17/16 Carlos Manuel Wang MD [address] [place] [address] Nephrology 06/24/22 Raffy Rojas MD [address] [place] [address] Consulting Physician Vascular Surgery 06/24/22 [facility] 02/03/22 Facing End Trimmer Relationship Specialty Start Date End Date Christiano Grove DO [address] [place] [address] PCP - General 09/17/16 Carlos Manuel Wang MD [address] [place] [address] Nephrology 06/24/22 Raffy Rojas MD [address] [place] [address] Consulting Physician Vascular Surgery 06/24/22 [facility] 02/03/22 Facing End Trimmer Relationship Specialty Start Date End Date Christiano Grove DO [address] [place] [address] PCP - General 09/17/16 Carlos Manuel Wang MD [address] [place] [address] Nephrology 06/24/22 Raffy Rojas MD [address] [place], [place] [address] Consulting Physician Vascular Surgery 06/24/22 [facility] 02/03/22 Facing End Trimmer Relationship Specialty Start Date End Date Christiano Grove DO [address] [place] [address] PCP - General 09/17/16 01/19/24 Roxie Spain [address] [place] [address] PCP - General Family Medicine 01/20/24 Carlos Manuel Wang MD [address] [place] [address] Nephrology 06/24/22 Raffy Rojas MD [address] [place] [address] Consulting Physician Vascular Surgery 06/24/22 [facility] 02/03/22 Facing End Trimmer Relationship Specialty Start Date End Date Judit Roxie [address] [place] [address] PCP - General Family Medicine 01/20/24 Carlos Manuel Wang MD Nephrology 06/24/22 Raffy Rojas MD [address] [place] [address] Consulting Physician Vascular Surgery 06/24/22 [facility] 02/03/22 Facing End Trimmer Relationship Specialty Start Date End Date Roxie Spain [address] [place] [phone] PCP - General Family Medicine 01/20/24 Carlos Manuel Wang MD Nephrology 06/24/22 Raffy Rojas MD [address] [place] [address] Consulting Physician Vascular Surgery 06/24/22 [facility] 02/03/22 Facing End Trimmer Relationship Specialty Start Date End Date Roxie Spain [address] [place] [phone] PCP - General Family Medicine 01/20/24 Carlos Manuel Wang MD Nephrology 06/24/22 Raffy Rojas MD [address] [place] [address] Consulting Physician Vascular Surgery 06/24/22 [facility] 02/03/22 Facing End Trimmer Relationship Specialty Start Date End Date Roxie Spain [address] [place] [phone] PCP - General Family Medicine 01/20/24 Carlos Manuel Wang MD Nephrology 06/24/22 Raffy Rojas MD [address] [place] [address] Consulting Physician Vascular Surgery 06/24/22 [facility] 02/03/22 Facing End Trimmer Relationship Specialty Start Date End Date Roxie Spain [address] [place] [address] PCP - General Family Medicine 01/20/24 Carlos Manuel Wang MD Nephrology 06/24/22 Raffy Rojas MD [address] [place] [address] Consulting Physician Vascular Surgery 06/24/22 [facility] 02/03/22 Facing End Trimmer Relationship Specialty Start Date End Date Roxie Spain [address] [place] [phone] PCP - General Family Medicine 01/20/24 Carlos Manuel Wang MD Nephrology 06/24/22 Raffy Rojas MD [address] [place] [address] Consulting Physician Vascular Surgery 06/24/22 [facility] 02/03/22 Facing End Trimmer Relationship Specialty Start Date End Date Roxie Spain [address] [facility] [place] [phone] PCP - General Family Medicine 01/20/24 Carlos Manuel Wang MD Nephrology 06/24/22 Raffy Rojas [address] [place] [address] Consulting Physician Vascular Surgery 06/24/22 [facility] 02/03/22 Facing End Trimmer Relationship Specialty Start Date End Date Roxie Spain [address] [place] [phone] PCP - General Family Medicine 01/20/24 Carlos Manuel Wang MD Nephrology 06/24/22 Raffy Rojas MD [address] [place] [address] Consulting Physician Vascular Surgery 06/24/22 [facility] 02/03/22 [facility] 11/14/24 Facing End Trimmer Relationship Specialty Start Date End Date Roxie Spain [address] [place] [phone] PCP - General Family Medicine 01/20/24 Carlos Manuel Wang MD Nephrology 06/24/22 Raffy Rojas MD [address] [place] [address] Consulting Physician Vascular Surgery 06/24/22 [facility] Facing End Trimmer Relationship Specialty Start Date End Date Roxie Spain [address] [place] [phone] PCP - General Family Medicine 01/20/24 Carlos Manuel Wang MD Nephrology 06/24/22 Raffy Rojas MD [address] [place] [address] Consulting Physician Vascular Surgery 06/24/22 [facility] [place] [facility] 02/03/22 [facility] Facing End Trimmer Relationship Specialty Start Date End Date Roxie Spain [address] [place] [phone] PCP - General Family Medicine 01/20/24 Carlos Manuel Wang MD Nephrology 06/24/22 Raffy Rojas MD [address] [place] [address] Consulting Physician Vascular Surgery 06/24/22 [facility] 02/03/22 [facility] 11/14/24 Facing End Trimmer Relationship Specialty Start Date End Date Roxie Spain [address] [place] [address] PCP - General Family Medicine 01/20/24 Carlos Manuel Wang MD Nephrology 06/24/22 Raffy Rojas MD [address] [place] [address] Consulting Physician Vascular Surgery 06/24/22 [facility] 02/03/22 [facility] 11/14/24 Facing End Trimmer Relationship Specialty Start Date End Date Roxie Spain [address] [place] [address] PCP - General Family Medicine 01/20/24 Carlos Manuel Wang MD Nephrology 06/24/22 Raffy Rojas MD [address] [place] [address] Consulting Physician Vascular Surgery 06/24/22 [facility] 11/14/24 Facing End Trimmer Relationship Specialty Start Date End Date Roxie Spain [address] [place] [address] PCP - General Family Medicine 01/20/24 Carlos Manuel Wang MD Nephrology 06/24/22 Raffy Rojas MD [address] [place] [address] Consulting Physician Vascular Surgery 06/24/22 [facility] 11/14/24 Facing End Trimmer Relationship Specialty Start Date End Date Roxie Spain [address] [place] [address] PCP - General Family Medicine 01/20/24 Carlos Manuel Wang MD Nephrology 06/24/22 Raffy Rojas MD [address] [place] [address] Consulting Physician Vascular Surgery 06/24/22 [facility] 02/03/22 [facility] 11/14/24 Scheduled Active and Recently Administ [...] Adkins RN - Reason: Patient not available) 06 (Given - Provider: Mary Francisco RN)0824 (JUN [...] Lenka Adkins RN - Reason: Patient/family refused)1029 (JUN Unhold - Provider: Automatic Transfer Provider) [...] dose 1345 (Given - Provider: Love Baig [facility]) PRN Medication Order 01/23/2024 01/24/2024 01/25/2024 [...] Transfer Provider - Reason: Patient not available)1029 ([facility] Unhold - Provider: Automatic Transfer Provider) Diclofenac Sodium (Voltaren) 1 % gel 2 g 2 g, Topical, 2 times daily PRN, Joint pain, Starting on Wed01/21/24 at 0845, Apply to area w joint pain. 0824 ([place]UN Hold - Provider: Automatic Transfer Provider - Reason: Patient not available)1029 ([facility] Unhold - Provider: Automatic Transfer Provider) fentaNYL (Sublimaze) injection (COMPLETED) IntraVENous, As needed, Starting on Wed01/24/24 at 1637, Intraprocedure 1637 (Given - Provider: Rayshawn Lawson, RN) hydrALAZINE (Apresoline) injection 10 mg 10 mg, IntraVENous, Every 6 hours PRN, high blood pressure, SBP >160, Starting on Wed01/24/24 at 1829 1835 (Given - Provider: Enriqueta Ricks RN) 0824 ([facility] Hold - Provider: Automatic Transfer Provider - Reason: Patient not available)1029 ([facility] Unhold - Provider: Automatic [...] Alternative - Provider: Mary Francisco RN) 0824 ([facility] Hold - Provider: Automatic Transfer Provider - Reason: Patient not available)1029 ([facility] Unhold - Provider: Automatic [...] (Given - Provider: Mary Francisco RN) 0824 ([facility] Hold - Provider: Automatic Transfer Provider - Reason: Patient not available)102 ([facility] Unhold - Provider: Automatic Transfer Provider) senna-docusate sodium (Senokot-S) 8.6-50 MG tablet 2 tablet 2 tablet, Oral, Daily PRN, constipation, Starting on 01/23/24 at 0745 0810 (Given - Provider: Sneha Andrea RN) 08 ([facility] Hold - Provider: Automatic Transfer Provider - Reason: Patient not available)102 ([facility] Unhold - Provider: Automatic [...] less into rate field of order. 0824 ([facility] Hold - Provider: Automatic Transfer Provider - Reason: Patient not available)102 ([facility] Unhold - Provider: Automatic [...] been cleared of remaining blood product. 0824 ([facility] Hold - Provider: Automatic [...] (Held by provider - Provider: Radha Kevin, DO - Reason: Other)2100 (Dose Auto Held) 1921 [...] Mike Augustin RN)1259 (Given - Provider: Mike Augustin, RN)1700 (Canceled Entry - Provider: Automatic Discharge [...] 0914 (New Bag - Provider: Mike Augustin, CYNTHIA)0944 (Stopped - Provider: Mike Augustin, CYNTHIA) cholecalciferol (Vitamin D-3) tablet 5,000 Units 5,000 Units, Oral, Daily, First dose on 02/19/24 at 0900 0856 (Given - Provider: Regi Galdamez RN) 0913 (Given - Provider: Mike Augustin, CYNTHIA) furosemide (Lasix) injection 80 mg (COMPLETED) 80 mg, IntraVENous, Once, On 02/19/24 at 0445, For 1 dose 0512 (Given - Provider: Efrem Raphael RN) heparin injection 5,000 Units 5,000 Units, SubCUTAneous, Every 12 hours scheduled (2 times per day), First dose on 02/19/24 at 0900 0856 (Given - Provider: Regi Galdamez RN)205 (Given - Provider: Dorcas Robles RN) 0913 (Given - Provider: Mike Augustin, CYNTHIA) ipratropium-albuterol (Duo-Neb) 0.5-2.5 mg/3 mL nebulizer solution 3 mL (CANCELED) 3 mL, Nebulization, 4 times daily, First dose on 02/19/24 at 2315 2315 (Due) 0821 (Given - Provider: Celine Gomez)1200 (Not Given - Provider: Celine Gmoez - Reason: Patient/family refused) sodium chloride 0.9% (NS) flush 10 mL 10 mL, IntraVENous, Every 12 hours scheduled (2 times per day), First dose on 02/19/24 at 0900 0900 (Given - Provider: Regi Galdamez RN)2054 (Given - Provider: Dorcas Robles, CYNTHIA) 0900 (Not Given - Provider: Mike Augustin, [...] Karis Pulido, CYNTHIA)0434 (Stopped - Provider: Karis Pulido RN) PRN [...] 24 hours. 210 (Given - Provider: Dorcas Robles RN) 0626 [...] 2025 (Given - Provider: Brenda Wooten RN) 2099 (Canceled Entry - Provider: Automatic Discharge Provider [...] Birmingham RN) 0842 (Given - Provider: Rickie Birmingham RN)1344 [...] Diane 03/02/24 at 0922, Last occurrence on [facility] 03/04/24 at 2200, For 3 days, [...] 2104 (Given - Provider: Opal David RN) 2037 (Given - Provider: Opal David RN) 2100 (Due) cholecalciferol (Vitamin D-3) tablet 125 mcg 125 mcg, oral, Daily, First dose on Diane 08/31/24 at 0900 0821 (Given - Provider: Praveen Carney RN) 1228 (Given - Provider: Kelechi Warren RN) 0844 (Given - Provider: Jenn Little, CYNTHIA) epoetin miller (Epogen) injection 10,000 Units (CANCELED) 10,000 Units, intravenous, User specified (Once per day on Wednesday), First dose (after last modification) on Wed09/05/24 at 2100, Indications: ESRD on Dialysis 2037 (Given - Provider: Opal David, CYNTHIA) epoetin miller (Epogen) injection 10,000 Units (COMPLETED) [...] Ilene Valle RN)0831 (Given - Provider: Praveen Carney, CYNTHIA)2122 (Given - Provider: Opal David RN) 0108 (Given - Provider: Opal David RN) [...] Rich RN - Comment: Pt. was in dialysis)2018 (Given - Provider: Yuly Gonzalez RN) 0501 (Given - Provider: Yuly Gonzalez RN)1245 (Given - Provider: Key Leach, CYNTHIA)2016 (Given - Provider: Bee Hoyos, CYNTHIA) 0531 (Given - Provider: Bee Hoyos RN)1402 [...] CYNTHIA) 1431 (Not Given - Provider: Jessica La, [...] Jessica La RN) lidocaine-EPINEPHrine (Xylocaine W/EPI) 1 %-[id number] injection 25 mL 25 mL, Injection, Once, On Wed11/10/24 at 1345, For 1 dose 1345 (Canceled Entry - Provider: Automatic Discharge Provider - Comment: Automatically canceled at discontinue of medication order) melatonin tablet 5 mg 5 mg, Oral, Nightly, First dose (after last modification) on Wed11/09/24 at 2100 2017 (Given - Provider: Yuly Gonzalez, CYNTHIA) 2017 (Given - Provider: Bee Hoyos RN) oxyCODONE (Roxicodone) immediate release tablet 5 mg (COMPLETED) 5 mg, Oral, Once, On Wed11/09/24 at 0045, For 1 dose 0045 (Given - Provider: Yuly Gonzalez, CYNTHIA) sevelamer carbonate (Renvela) tablet 800 mg [...] Key Leach RN)2023 (Given - Provider: Bee Hoyos, CYNTHIA) 0532 (Given - Provider: Bee Hoyos RN)1431 [...] 0816 (Given - Provider: Jessica La RN) PRN Medication Order 11/09/2024 11/10/2024 11/11/2024 [...] catheter, Starting on 10/22/24 at 1851, To VENOUS lumen. Use [...] specifically ordered. 1014 (Given - Provider: Jamie Medina, CYNTHIA) labetalol (Normodyne,Trandate) injection 10 mg (CANCELED) 10 [...] sedation for opioid reversal - MUST notify curriculum consultant provider immediately after first dose, may give [...] and flush line post transfusion, Starting on Lena 11/05/24 at 0646, For 1 dose, For [...] and flush line post transfusion, Starting on Lena 11/05/24 at 1146, For 1 dose, For [...] mL, IntraVENous, PRN, line care, Starting on Lena 10/22/24 at 1304, For Line Patency: Peripheral [...] RN) 0821 (Given - Provider: Jairon Travis, CYNTHIA) collagenase 250 UNIT/GM ointment (CANCELED) Topical, Daily, [...] Comment: pt vomited) 0745 (Given - Provider: Jarion Travis RN)1310 (Not Given - Provider: Jairon [...] sedation for opioid reversal - MUST notify curriculum consultant provider immediately after first dose, may give [...] 2100 2042 (Not Given - Provider: Jayashree Petersen RN [...] 1515 1854 (New Bag - Provider: Kellee Rich RN)1950 (Stopped - Provider: Jayashree Petersen RN) 1126 (New Bag - Provider: Shauna Flynn)1145 (Stopped - Provider: Key Leach, CYNTHIA) Lidocaine 4 % patch 1 patch 1 [...] 20 mL/lumen 0628 (Given - Provider: Karis Jacobson, CYNTHIA)1803 (Not Given - Provider: Kellee Rich RN - Reason: Other) 0509 (Given - Provider: Jayashree Petersen RN)1816 (Given - Provider: Key Leach, CYNTHIA) 0426 (Given - Provider: Jayashree Petersen RN)1733 (Not Given - Provider: Jamie Medina, CYNTHIA - Reason: Other) stomahesive in petrolatum (ET [...] Petersen RN) 0425 (Given - Provider: Jayashree Petersen, CYNTHIA)1603 (Given - Provider: Jamie Medina, CYNTHIA) thiamine [...] Shauna Flynn)1026 (Stopped - Provider: Key Leach, CYNTHIA)1318 (New Bag - Provider: Key Leach, RN)1348 (Stopped - Provider: Key Leach, RN)2140 (New Bag - Provider: Jayashree Petersen RN)2217 (Stopped - Provider: Jayashree Petersen RN) 0929 (Not Given - Provider: Jamie Medina RN - Reason: See Provider Order) thiamine (Vitamin B1) tablet 100 mg 100 mg, Oral, Daily, First dose on Wed12/20/24 at 0915 0932 (Given - Provider: Jamie Medina RN) PRN Medication Order 12/18/2024 12/19/2024 12/20/2024 alteplase [...] 0910 (See Alternative - Provider: Kellee Rich RN)1853 [...] Jayashree Petersen RN)2000 (Given - Provider: Jayashree Petersen, CYNTHIA) 424 (Given - Provider: Jayashree Petersen, CYNTHIA) [...] sedation for opioid reversal - MUST notify curriculum consultant provider immediately after first dose, may give [...] daily PRN, agitation, first line for agitation, [place] PRN Seroquel for ONLY if danger to [...] and flush line post transfusion, Starting on Wed12/17/24 at 0832, For 1 dose, For use [...] BE BASED ON THE PRIMARY CLINICAL RECORDS. [facility] [employer] [facility]. provides no warranty or guarantee of the accuracy or completeness of information in this document.
[2025-02-26 08:08] LABS: KEPPRA (LEVETIRACETAM) 10.0 ug/mL (10.0-40.0)
== END ==
LOC: OLS.SANC 05:00
PROVIDERS: Visit Provider Internal Medicine
DX: D64.9 Anemia, unspecified (principal); I10 Essential (primary) hypertension; Z79.899 Other long term (current) drug therapy
CPT/HCPCS: 36415; 80177